=== PATIENT | male | born 1950 | race Caucasian/White ===

== ENCOUNTER 2022-09-04 17:37 | Emergency (ER) | payer OTHER, SELFPAY ==
[2022-09-04] VITALS (40 sets, daily range): BP systolic 74–117; BP diastolic 43–69; PULSE 58–88; TEMP 37.6; O2SAT 96–100; BMI 28.5
--- NOTE | 2022-09-04 17:53 | ED_ITS ---
HPI - General Adult General Time Seen by Provider: 17:53 <Palmira Arriaga MD - Last Filed: 09/04/22 22:39> Date Seen: 09/04/22 <Palmira Arriaga MD - Last Filed: 09/04/22 22:39> Chief complaint: Weakness <Palmira Arriaga MD - Last Filed: 09/04/22 22:39> Stated complaint: Low BP Black Stools <Palmira Arriaga MD - Last Filed: 09/04/22 22:39> Time Seen by Provider: 09/04/22 17:49 <Palmira Arriaga MD - Last Filed: 09/04/22 22:39> Source: patient and RN notes reviewed <Palmira Arriaga MD - Last Filed: 09/04/22 22:39> Mode of arrival: ambulatory <Palmira Arriaga MD - Last Filed: 09/04/22 22:39> Limitations: no limitations <Palmira Arriaga MD - Last Filed: 09/04/22 22:39> History of Present Illness HPI narrative: Patient is a 71-year-old male coming in with low blood pressure and black stools, stating he almost passed out. [facility], states about a month ago he went in and was having some nausea, was given a nausea medicine which works for while. He was told that he has problems with diverticulosis. He states he has had dark tarry stools for maybe about 2 weeks now. Has had no history of peptic ulcer before per report. He states about 3 or 4 days ago he did get put on antibiotics, bigger pill, thinks it is Augmentin for his diverticular issues. When asked if it was diverticulitis that did sound more familiar to him. He is not really having any abdominal pain, no noted fevers. He has been nauseated but the nausea medicine they gave him helps. He notes tonight he was eating, had a drink with dinner and that he thinks tipped him over the edge. He thinks alcohol dropped his blood pressure too much. He has been hospitalized with us before for diverticulitis, last time in 2019. Do not know if he has had an updated colonoscopy in the interim. He states he has post to get an EKG or some cardiac test coming up. He notes that his blood pressure was having problems with being elevated 9 the put him on a whole bunch of medications. Blood pressure seemed to stabilize at about 130, recently it has been low. No chest pain, no abdominal pain, no fevers at this time. <Palmira Arriaga MD - Last Filed: 09/04/22 22:39> Related Data Home medications: Home Medications Medication Instructions Recorded Confirmed HCTZ 12.5/Lisinopril 10 09/04/22 amoxicillin 875 mg-potassium 1 tab PO Q12H 09/04/22 09/04/22 clavulanate 125 mg tablet aspirin 81 mg tablet,delayed 81 mg PO DAILY 09/04/22 09/04/22 release (Adult Aspirin Regimen) atorvastatin 40 mg tablet 40 mg PO DAILY 09/04/22 09/04/22 dicyclomine 10 mg capsule 10 mg PO BID 09/04/22 09/04/22 empagliflozin 25 mg tablet 25 mg PO DAILY 09/04/22 09/04/22 empagliflozin 25 mg tablet 25 mg PO DAILY 09/04/22 09/04/22 furosemide 20 mg tablet 20 mg PO DAILY 09/04/22 09/04/22 isosorbide mononitrate 60 mg 60 mg PO DAILY 09/04/22 09/04/22 tablet,extended release 24 hr spironolactone 25 mg tablet 25 mg PO DAILY 09/04/22 09/04/22 <Palmira Arriaga MD - Last Filed: 09/04/22 22:39> Allergies/adverse reactions: Allergies Allergy/AdvReac Type Severity Reaction Status Date / Time No Known Drug Allergies Allergy Verified 09/04/22 20:39 <Palmira Arriaga MD - Last Filed: 09/04/22 22:39> Review of Systems Status of ROS: Reports: 10 or more systems reviewed and unremarkable except as noted in History and below <Palmira Arriaga MD - Last Filed: 09/04/22 22:39> [facility] Social History: Social History (Updated 09/04/22 @ 22:54 by Liberty Pradhan MD) Smoking Status: Former smoker What tobacco products do you use: cigarettes Smoking quit date/years: >15 years ago Do you use any of these nicotine containing products: None Second hand tobacco smoke exposure: Yes How often do you have a drink containing alcohol: monthly or less How many standard drinks containing alcohol do you have on a typical day: 1 or 2 How often do you have six or more drinks on one occasion: Never AUDIT-C Alcohol total score: 1 Non-prescribed substance use: denies use service: Yes <Palmira Arriaga MD - Last Filed: 09/04/22 22:39> Exam Const: Vital Signs, click to edit/add: Vital Signs - 24 hr 09/04/22 18:01 09/04/22 18:10 09/04/22 18:00 Temperature 99.6 F Pulse Rate Pulse Rate [Pulse Oximeter] 70 71 Blood Pressure Blood Pressure [Ri ght Upper Arm] 93/49 L 93/49 L Pulse Oximetry 97 97 97 Oxygen Delivery Me thod Room Air Room Air 09/04/22 18:28 09/04/22 18:30 09/04/22 18:31 Temperature Pulse Rate 67 67 68 Pulse Rate [Pulse Oximeter] Blood Pressure 83/48 L Blood Pressure [Ri ght Upper Arm] Pulse Oximetry 97 97 96 Oxygen Delivery Me thod 09/04/22 18:45 09/04/22 19:00 09/04/22 19:01 Temperature Pulse Rate 76 69 69 Pulse Rate [Pulse Oximeter] Blood Pressure 97/52 L Blood Pressure [Ri ght Upper Arm] Pulse Oximetry 96 97 96 Oxygen Delivery Me thod 09/04/22 19:03 09/04/22 19:15 09/04/22 19:30 Temperature Pulse Rate 70 67 71 Pulse Rate [Pulse Oximeter] Blood Pressure 97/52 L Blood Pressure [Ri ght Upper Arm] Pulse Oximetry 96 97 97 Oxygen Delivery Me thod 09/04/22 19:34 09/04/22 19:39 09/04/22 19:45 Temperature Pulse Rate 88 71 77 Pulse Rate [Pulse Oximeter] Blood Pressure 74/50 L Blood Pressure [Ri ght Upper Arm] Pulse Oximetry 97 97 98 Oxygen Delivery Me thod 09/04/22 20:00 09/04/22 20:01 09/04/22 20:28 Temperature Pulse Rate 84 87 64 Pulse Rate [Pulse Oximeter] Blood Pressure 87/54 L Blood Pressure [Ri ght Upper Arm] Pulse Oximetry 97 97 99 Oxygen Delivery Me thod 09/04/22 20:30 09/04/22 20:32 09/04/22 20:45 Temperature Pulse Rate 64 62 62 Pulse Rate [Pulse Oximeter] Blood Pressure 105/56 L Blood Pressure [Ri ght Upper Arm] Pulse Oximetry 99 99 97 Oxygen Delivery Me thod 09/04/22 21:00 09/04/22 21:01 09/04/22 21:02 Temperature Pulse Rate 60 67 64 Pulse Rate [Pulse Oximeter] Blood Pressure 98/52 L Blood Pressure [Ri ght Upper Arm] Pulse Oximetry 98 97 98 Oxygen Delivery Me thod 09/04/22 21:15 09/04/22 21:20 09/04/22 21:30 Temperature Pulse Rate 59 L 59 L 62 Pulse Rate [Pulse Oximeter] Blood Pressure 111/69 Blood Pressure [Ri ght Upper Arm] Pulse Oximetry 98 98 99 Oxygen Delivery Me thod 09/04/22 21:32 09/04/22 21:45 09/04/22 22:00 Temperature Pulse Rate 62 60 59 L Pulse Rate [Pulse Oximeter] Blood Pressure 103/43 L Blood Pressure [Ri ght Upper Arm] Pulse Oximetry 98 99 99 Oxygen Delivery Me thod 09/04/22 22:03 09/04/22 22:06 09/04/22 22:15 Temperature Pulse Rate 59 L 59 L 59 L Pulse Rate [Pulse Oximeter] Blood Pressure 83/51 L 114/53 L Blood Pressure [Ri ght Upper Arm] Pulse Oximetry 98 99 98 Oxygen Delivery Wi thod 09/04/22 22:30 09/04/22 22:32 09/04/22 22:45 Temperature Pulse Rate 61 62 61 Pulse Rate [Pulse Oximeter] Blood Pressure Blood Pressure [Ri ght Upper Arm] Pulse Oximetry 98 98 98 Oxygen Delivery Me thod 09/04/22 23:00 09/04/22 23:01 09/04/22 23:15 Temperature Pulse Rate 58 L 60 59 L Pulse Rate [Pulse Oximeter] Blood Pressure 117/65 Blood Pressure [Ri ght Upper Arm] Pulse Oximetry 98 98 97 Oxygen Delivery Me thod 09/04/22 23:35 09/05/22 00:00 09/05/22 00:01 Temperature Pulse Rate 64 60 58 L Pulse Rate [Pulse Oximeter] Blood Pressure 103/55 L Blood Pressure [Ri ght Upper Arm] Pulse Oximetry 100 98 98 Oxygen Delivery Me thod 09/05/22 00:31 09/05/22 01:00 09/05/22 01:01 Temperature Pulse Rate 58 L 54 L 55 L Pulse Rate [Pulse Oximeter] Blood Pressure 103/53 L 76/39 L Blood Pressure [Ri ght Upper Arm] Pulse Oximetry 99 96 96 Oxygen Delivery Me thod 09/05/22 01:31 09/05/22 02:16 09/05/22 03:00 Temperature Pulse Rate 56 L 56 L 53 L Pulse Rate [Pulse Oximeter] Blood Pressure 110/56 L Blood Pressure [Ri ght Upper Arm] Pulse Oximetry 97 99 98 Oxygen Delivery Me thod 09/05/22 03:02 09/05/22 04:01 09/05/22 05:01 Temperature Pulse Rate 53 L Pulse Rate [Pulse Oximeter] Blood Pressure 101/55 L 76/39 L 104/57 L Blood Pressure [Ri ght Upper Arm] Pulse Oximetry 98 Oxygen Delivery Me thod 09/05/22 06:02 09/05/22 06:23 09/05/22 07:00 Temperature Pulse Rate 57 L 53 L Pulse Rate [Pulse Oximeter] Blood Pressure 109/57 L Blood Pressure [Ri ght Upper Arm] Pulse Oximetry 99 98 Oxygen Delivery Me thod 09/05/22 07:01 09/05/22 08:00 09/05/22 08:02 Temperature Pulse Rate 53 L 55 L 57 L Pulse Rate [Pulse Oximeter] Blood Pressure 115/64 121/60 Blood Pressure [Ri ght Upper Arm] Pulse Oximetry 98 98 97 Oxygen Delivery Me thod 09/05/22 09:00 09/05/22 09:02 Temperature Pulse Rate 55 L 55 L Pulse Rate [Pulse Oximeter] Blood Pressure 111/55 L Blood Pressure [Ri ght Upper Arm] Pulse Oximetry 97 97 Oxygen Delivery Me thod <Palmira Arriaga MD - Last Filed: 09/04/22 22:39> Vital Signs, click to edit/add: Vital Signs - 24 hr 09/04/22 18:01 09/04/22 18:10 09/04/22 18:00 Temperature 99.6 F Pulse Rate Pulse Rate [Pulse Oximeter] 70 71 Blood Pressure Blood Pressure [Ri ght Upper Arm] 93/49 L 93/49 L Pulse Oximetry 97 97 97 Oxygen Delivery Me thod Room Air Room Air 09/04/22 18:28 09/04/22 18:30 09/04/22 18:31 Temperature Pulse Rate 67 67 68 Pulse Rate [Pulse Oximeter] Blood Pressure 83/48 L Blood Pressure [Ri ght Upper Arm] Pulse Oximetry 97 97 96 Oxygen Delivery Me thod 09/04/22 18:45 09/04/22 19:00 09/04/22 19:01 Temperature Pulse Rate 76 69 69 Pulse Rate [Pulse Oximeter] Blood Pressure 97/52 L Blood Pressure [Ri ght Upper Arm] Pulse Oximetry 96 97 96 Oxygen Delivery Me thod 09/04/22 19:03 09/04/22 19:15 09/04/22 19:30 Temperature Pulse Rate 70 67 71 Pulse Rate [Pulse Oximeter] Blood Pressure 97/52 L Blood Pressure [Ri ght Upper Arm] Pulse Oximetry 96 97 97 Oxygen Delivery Me thod 09/04/22 19:34 09/04/22 19:39 09/04/22 19:45 Temperature Pulse Rate 88 71 77 Pulse Rate [Pulse Oximeter] Blood Pressure 74/50 L Blood Pressure [Ri ght Upper Arm] Pulse Oximetry 97 97 98 Oxygen Delivery Me thod 09/04/22 20:00 09/04/22 20:01 09/04/22 20:28 Temperature Pulse Rate 84 87 64 Pulse Rate [Pulse Oximeter] Blood Pressure 87/54 L Blood Pressure [Ri ght Upper Arm] Pulse Oximetry 97 97 99 Oxygen Delivery Me thod 09/04/22 20:30 09/04/22 20:32 09/04/22 20:45 Temperature Pulse Rate 64 62 62 Pulse Rate [Pulse Oximeter] Blood Pressure 105/56 L Blood Pressure [Ri ght Upper Arm] Pulse Oximetry 99 99 97 Oxygen Delivery Me thod 09/04/22 21:00 09/04/22 21:01 09/04/22 21:02 Temperature Pulse Rate 60 67 64 Pulse Rate [Pulse Oximeter] Blood Pressure 98/52 L Blood Pressure [Ri ght Upper Arm] Pulse Oximetry 98 97 98 Oxygen Delivery Me thod 09/04/22 21:15 09/04/22 21:20 09/04/22 21:30 Temperature Pulse Rate 59 L 59 L 62 Pulse Rate [Pulse Oximeter] Blood Pressure 111/69 Blood Pressure [Ri ght Upper Arm] Pulse Oximetry 98 98 99 Oxygen Delivery Me thod 09/04/22 21:32 09/04/22 21:45 09/04/22 22:00 Temperature Pulse Rate 62 60 59 L Pulse Rate [Pulse Oximeter] Blood Pressure 103/43 L Blood Pressure [Ri ght Upper Arm] Pulse Oximetry 98 99 99 Oxygen Delivery Me thod 09/04/22 22:03 09/04/22 22:06 09/04/22 22:15 Temperature Pulse Rate 59 L 59 L 59 L Pulse Rate [Pulse Oximeter] Blood Pressure 83/51 L 114/53 L Blood Pressure [Ri ght Upper Arm] Pulse Oximetry 98 99 98 Oxygen Delivery Me thod 09/04/22 22:30 09/04/22 22:32 09/04/22 22:45 Temperature Pulse Rate 61 62 61 Pulse Rate [Pulse Oximeter] Blood Pressure Blood Pressure [Ri ght Upper Arm] Pulse Oximetry 98 98 98 Oxygen Delivery Me thod 09/04/22 23:00 09/04/22 23:01 09/04/22 23:15 Temperature Pulse Rate 58 L 60 59 L Pulse Rate [Pulse Oximeter] Blood Pressure 117/65 Blood Pressure [Ri ght Upper Arm] Pulse Oximetry 98 98 97 Oxygen Delivery Wi thod 09/04/22 23:35 09/05/22 00:00 09/05/22 00:01 Temperature Pulse Rate 64 60 58 L Pulse Rate [Pulse Oximeter] Blood Pressure 103/55 L Blood Pressure [Ri ght Upper Arm] Pulse Oximetry 100 98 98 Oxygen Delivery Me thod 09/05/22 00:31 09/05/22 01:00 09/05/22 01:01 Temperature Pulse Rate 58 L 54 L 55 L Pulse Rate [Pulse Oximeter] Blood Pressure 103/53 L 76/39 L Blood Pressure [Ri ght Upper Arm] Pulse Oximetry 99 96 96 Oxygen Delivery Me thod 09/05/22 01:31 09/05/22 02:16 09/05/22 03:00 Temperature Pulse Rate 56 L 56 L 53 L Pulse Rate [Pulse Oximeter] Blood Pressure 110/56 L Blood Pressure [Ri ght Upper Arm] Pulse Oximetry 97 99 98 Oxygen Delivery Me thod 09/05/22 03:02 09/05/22 04:01 09/05/22 05:01 Temperature Pulse Rate 53 L Pulse Rate [Pulse Oximeter] Blood Pressure 101/55 L 76/39 L 104/57 L Blood Pressure [Ri ght Upper Arm] Pulse Oximetry 98 Oxygen Delivery Me thod 09/05/22 06:02 09/05/22 06:23 09/05/22 07:00 Temperature Pulse Rate 57 L 53 L Pulse Rate [Pulse Oximeter] Blood Pressure 109/57 L Blood Pressure [Ri ght Upper Arm] Pulse Oximetry 99 98 Oxygen Delivery Me thod 09/05/22 07:01 09/05/22 08:00 09/05/22 08:02 Temperature Pulse Rate 53 L 55 L 57 L Pulse Rate [Pulse Oximeter] Blood Pressure 115/64 121/60 Blood Pressure [Ri ght Upper Arm] Pulse Oximetry 98 98 97 Oxygen Delivery Me thod 09/05/22 09:00 09/05/22 09:02 Temperature Pulse Rate 55 L 55 L Pulse Rate [Pulse Oximeter] Blood Pressure 111/55 L Blood Pressure [Ri ght Upper Arm] Pulse Oximetry 97 97 Oxygen Delivery Me thod <Palmira Colindres MD - Last Filed: 09/05/22 09:48> Documenting provider has reviewed patient's vital signs: yes <Palmira Arriaga MD - Last Filed: 09/04/22 22:39> Common normals: no apparent distress, average body habitus, oriented x3, no limitations, healthy appearing, alert and well nourished <Palmira Martinez MD - Last Filed: 09/04/22 22:39> General appearance: cooperative, comfortable, well kempt and well developed <Palmira Arriaga MD - Last Filed: 09/04/22 22:39> HENMT: Common normals: normocephalic, head/scalp atraumatic, hearing grossly normal bilaterally and external ears normal <Palmira Arriaga MD - Last Filed: 09/04/22 22:39> Head and scalp: normocephalic and atraumatic <Palmira Arriaga MD - Last Filed: 09/04/22 22:39> External ear: external ears normal <Palmira Arriaga MD - Last Filed: 09/04/22 22:39> Eye: Common normals: PERRL, EOMs intact bilaterally, conjunctivae normal and no scleral icterus <Palmira Arriaga MD - Last Filed: 09/04/22 22:39> Conjunctiva: conjunctiva(e) normal <Palmira Arriaga MD - Last Filed: 09/04/22 22:39> Pupil: PERRL <Palmira Arriaga MD - Last Filed: 09/04/22 22:39> Neck & C-Spine: Common normals: full ROM, no lymphadenopathy, supple, no meningeal signs, no JVD and thyroid normal <Palmira Arriaga MD - Last Filed: 09/04/22 22:39> Thyroid: thyroid normal <Palmira Arriaga MD - Last Filed: 09/04/22 22:39> Chest: Common normals: inspection of chest normal <Palmira Arriaga MD - Last Filed: 09/04/22 22:39> Resp: Common normals: normal respiratory effort, no retractions, no use of accessory muscles and clear to auscultation bilaterally <Palmira Martinez MD - Last Filed: 09/04/22 22:39> Effort & inspection: able to speak in complete sentences <Palmira Martinez MD - Last Filed: 09/04/22 22:39> Auscultation: clear to auscultation bilaterally <Palmira Arriaga MD - Last Filed: 09/04/22 22:39> Cardio: Common normals: no JVD, regular rate, regular rhythm, S1 normal heart sound, S2 normal heart sound, no gallops, no clicks and no murmurs <Palmira Arriaga MD - Last Filed: 09/04/22 22:39> Rate: regular rate <Palmira Arriaga MD - Last Filed: 09/04/22 22:39> Rhythm: regular rhythm <Palmira Arriaga MD - Last Filed: 09/04/22 22:39> Heart sounds: S1 normal and S2 normal <Palmira Arriaga MD - Last Filed: 09/04/22 22:39> GI: Common normals: Normal to inspection, nondistended, normoactive bowel sounds present, soft to palpation, non-tender, no hepatosplenomegaly and no masses <Palmira Arriaga MD - Last Filed: 09/04/22 22:39> Palpation: soft and no hepatosplenomegaly <Palmira Arriaga MD - Last Filed: 09/04/22 22:39> Extremity: Other: No lower extremity edema <Palmira Arriaga MD - Last Filed: 09/04/22 22:39> Neuro: Common normals: oriented x3 <Palmira Arriaga MD - Last Filed: 09/04/22 22:39> Sensorium/orientation: alert <aPlmira Arriaga MD - Last Filed: 09/04/22 22:39> Meningeal signs: no meningeal signs <Palmira Arriaga MD - Last Filed: 09/04/22 22:39> Psych: Appearance: well kempt <Palmira Arriaga MD - Last Filed: 09/04/22 22:39> Course Course Hospital Course: Will place an IV, have him on pulse oximetry, consider cardiac monitoring if worsening or needed. I will get a baseline EKG on him. He will have a full complement of labs include type and screen. I will initiate a L of normal saline, watch him closely to see if he needs more fluid resuscitation. Hemoglobin should not take that long to come back. I am going to initiate 80 mg IV Protonix in case this is upper GI bleeding. I am going to repeat the CT of his abdomen pelvis as he reports recent diverticulitis, need to ensure that there are not any complications with this. <Palmira Arriaga MD - Last Filed: 09/04/22 22:39> Reevaluation(s) Reevaluation #1: Lactate has been reported to me at 4.4. His hemoglobin is in the 11 range, blood pressure is 90s over 40s, his arrival temperature was 99.6? F. I do wonder if we might actually have sepsis here. Have ordered a 2 L of fluids, will add on blood cultures. Will complete a stool guaiac. <Palmira Martinez MD - Last Filed: 09/04/22 22:39> Time: 18:58 <Palmira Arriaga MD - Last Filed: 09/04/22 22:39> Reevaluation #2: Patient is stool guaiac, no external evidence of any lesions or bleeding. He states he is feeling better with IV fluids but blood pressure is still systolic 97. He does review with me that his blood pressure has been running low for some time now. He believes he had abdominal imaging with a CT up at the [facility], does know that we are planning to repeated here. <Palmira Arriaga MD - Last Filed: 09/04/22 22:39> Time: 19:12 <Palmira Arriaga MD - Last Filed: 09/04/22 22:39> Reevaluation #3: Patient's systolic blood pressure is 105, still on his 2 L of fluids, calculated at his weight he should get 2850 mL for 30 mL/kilos bolus. Have ordered 1/3 L of normal saline. He actually is feeling better. We are waiting his CT readings. He has no difficulty breathing, does not seem like he is going in fluid overload, troponin is normal. Procalcitonin is normal. He indeed has been on Augmentin. He is on cardiac medications that would signify that he may have some congestive heart failure. Urinalysis has been collected per nursing staff, they will make sure it is at lab. <Palmira Arriaga MD - Last Filed: 09/04/22 22:39> Time: 20:54 <Palmira Arriaga MD - Last Filed: 09/04/22 22:39> Additional Reevaluation(s): Patient had told the hospitalists he wanted to go home, did subsequently review this with him. I would prefer he stay, we do not have beds but he will board in the ED until the time we might have and a did mission spot in the hospital or can discharge from here if stable. I have ordered an echo for tomorrow, follow-up labs including a CBC in the morning. I have ordered daily omeprazole. He will need outpatient EGD scheduled sometime in the near future. He will be getting his 3 L of fluid and will continue to observe him. Hospitalist agreed with holding on any antibiotics, does not believe this to be sepsis either. This certainly can be iatrogenic from his medications. In any event, he will be safely monitored and if there is active GI bleeding, development of fever, we can actively pursue treatment for those. <Palmira Arriaga MD - Last Filed: 09/04/22 22:39> Consultations Consultation #1: Called Dr. Pradhan the hospitalist to see if she could do a consult for us. There are no beds at our hospital, will have staff see if there perhaps has been anything that is opened up. There really has been limited if any bed availability at other facilities today. This gentleman has hypotension. I did do a cursory look at his cardiac function, is a bit more difficult exam but I do not believe I see a pericardial effusion, believe his overall cardiac function is reduced somewhat. He is not had any issues with just under the 2 L of fluids he has had it this point. He did further tell me that he went back to his normal lisinopril this morning, half to the dose of Imdur that they had put him on and just took his aspirin. He feels like he is on too many meds. I questioned some of the meds that they had put him on and asked if they thought maybe he had congestive heart failure. He thinks that that is maybe the case. He believes he has a scheduled echocardiogram coming up. I have not given antibiotics at this point as there is nothing showing up on the CT, procalcitonin is normal. [facility] <Palmira Arriaga MD - Last Filed: 09/04/22 22:39> Time: 21:46 <Palmira Arriaga MD - Last Filed: 09/04/22 22:39> Vital Signs Vital signs: Initial Vital Signs Pulse Rate 71 09/04/22 18:00 Respiratory Depth Normal 09/04/22 18:00 Blood Pressure 93/49 L 09/04/22 18:00 Blood Pressure Mean 63 09/04/22 18:00 Blood Pressure Position Supine 09/04/22 18:00 Pulse Oximetry 97 09/04/22 18:00 Oxygen Delivery Method 09/04/22 18:00 Vital Signs Pulse Rate 71 09/04/22 18:00 Blood Pressure 93/49 L 09/04/22 18:00 Pulse Oximetry 97 09/04/22 18:00 Oxygen Delivery Method 09/04/22 18:00 Temperature 99.6 F 09/04/22 18:01 Pulse Rate 55 L 09/05/22 09:02 Blood Pressure 111/55 L 09/05/22 09:02 Pulse Oximetry 97 09/05/22 09:02 Oxygen Delivery Method 09/04/22 18:01 <Palmira Arriaga MD - Last Filed: 09/04/22 22:39> Initial Vital Signs Pulse Rate 71 09/04/22 18:00 Respiratory Depth Normal 09/04/22 18:00 Blood Pressure 93/49 L 09/04/22 18:00 Blood Pressure Mean 63 09/04/22 18:00 Blood Pressure Position Supine 09/04/22 18:00 Pulse Oximetry 97 09/04/22 18:00 Oxygen Delivery Method 09/04/22 18:00 Vital Signs Pulse Rate 71 09/04/22 18:00 Blood Pressure 93/49 L 09/04/22 18:00 Pulse Oximetry 97 09/04/22 18:00 Oxygen Delivery Method 09/04/22 18:00 Temperature 99.6 F 09/04/22 18:01 Pulse Rate 55 L 09/05/22 09:02 Blood Pressure 111/55 L 09/05/22 09:02 Pulse Oximetry 97 09/05/22 09:02 Oxygen Delivery Method 09/04/22 18:01 <Palmira Colindres MD - Last Filed: 09/05/22 09:48> Labs Labs: Laboratory Tests 09/05/22 09/05/22 09/04/22 Range/Units 07:42 07:42 20:42 WBC 9.43 (4.50-11.00) K/uL RBC 3.30 L (4.30-5.90) m/uL Hgb 10.5 L (13.5-17.5) gm/dL Hct 31.5 L (37.0-53.0) % MCV 96 (80-100) fL MCH 32 (26-34) pg MCHC 33 (32-36) gm/dL RDW Coeff of [place] 14.7 (11.5-15.5) % Plt Count 187 (140-440) K/uL Neut % (Auto) 67.2 (42.0-72.0) % Lymph % (Auto) 19.6 L (20-44) % [place] % (Auto) 9.5 (0.0-11.0) % Eos % (Auto) 2.7 (0.0-7.0) % Baso % (Auto) 0.5 (0.0-3.0) % Neut # (Auto) 6.33 (1.7-7.0) K/uL Lymph # (Auto) 1.80 (0.90-2.90) K/uL [place] # (Auto) 0.90 (0.00-0.90) K/UL Eos # (Auto) 0.25 (0.00-0.50) K/uL Baso # (Auto) 0.05 (0.00-0.30) K/uL VBG pH (7.32-7.43) VBG pCO2 (40-50) mmHG VBG pO2 (25-47) mmHG VBG HCO3 (21-28) mmol/L Sodium 136 (135-149) mmol/L Potassium 4.9 (3.6-5.1) mmol/L Chloride 109 (96-114) mmol/L Carbon Dioxide 23 (20-32) mmol/L BUN 25 (7-30) mg/dL Creatinine 0.9 (0.5-1.5) mg/dL Estimated Creat Clear 75.44 Estimated GFR 92 ml/min Glucose 100 (60-115) mg/dL Lactate (0.5-1.9) mmol/L Calcium 8.4 (8.4-10.6) mg/dL Total Bilirubin (0.1-1.5) mg/dL AST (12-35) U/L ALT (4-50) U/L Alkaline Phosphatase (40-150) U/L C-Reactive Protein (0.5-1.0) mg/dL Total Protein (6.0-8.3) g/dL Albumin (3.3-5.0) g/dL Procalcitonin (<0.50) ng/mL Urine Color Yellow (Yellow) Urine Appearance Clear (Clear) Urine pH 5.5 (5.0-8.5) Ur Specific [place] >= 1.030 (1.000-1.030) Urine Protein Negative (Negative) Urine Glucose (UA) 2+ A (Negative) Urine Ketones Negative (Negative) Urine Blood Negative (Negative) Urine Nitrite Negative (Negative) Urine Bilirubin Negative (Negative) Urine Urobilinogen 0.2 (0.2-1.0) Ur Leukocyte Esterase Negative (Negative) Urine RBC 0-2 (0-2) Urine WBC 0-2 (0-5) Ur Squamous Epith Cells Few (None-Few) Urine Bacteria Few A (None) Ethyl Alcohol (0.01-0.03) % SARS-CoV-2 (PCR) (Negative) POC Troponin I (0.01-0.04) ng/ml Blood Type Antibody Screen 09/04/22 09/04/22 09/04/22 Range/Units 20:13 18:02 18:02 WBC (4.50-11.00) K/uL RBC (4.30-5.90) m/uL Hgb (13.5-17.5) gm/dL Hct (37.0-53.0) % MCV (80-100) fL MCH (26-34) pg MCHC (32-36) gm/dL RDW Coeff of [place] (11.5-15.5) % Plt Count (140-440) K/uL Neut % (Auto) (42.0-72.0) % Lymph % (Auto) (20-44) % [place] % (Auto) (0.0-11.0) % Eos % (Auto) (0.0-7.0) % Baso % (Auto) (0.0-3.0) % Neut # (Auto) (1.7-7.0) K/uL Lymph # (Auto) (0.90-2.90) K/uL [place] # (Auto) (0.00-0.90) K/UL Eos # (Auto) (0.00-0.50) K/uL Baso # (Auto) (0.00-0.30) K/uL VBG pH (7.32-7.43) VBG pCO2 (40-50) mmHG VBG pO2 (25-47) mmHG VBG HCO3 (21-28) mmol/L Sodium (135-149) mmol/L Potassium (3.6-5.1) mmol/L Chloride (96-114) mmol/L Carbon Dioxide (20-32) mmol/L BUN (7-30) mg/dL Creatinine (0.5-1.5) mg/dL Estimated Creat Clear Estimated GFR ml/min Glucose (60-115) mg/dL Lactate 2.1 H (0.5-1.9) mmol/L Calcium (8.4-10.6) mg/dL Total Bilirubin (0.1-1.5) mg/dL AST (12-35) U/L ALT (4-50) U/L Alkaline Phosphatase (40-150) U/L C-Reactive Protein (0.5-1.0) mg/dL Total Protein (6.0-8.3) g/dL Albumin (3.3-5.0) g/dL Procalcitonin (<0.50) ng/mL Urine Color (Yellow) Urine Appearance (Clear) Urine pH (5.0-8.5) Ur Specific [place] (1.000-1.030) Urine Protein (Negative) Urine Glucose (UA) (Negative) Urine Ketones (Negative) Urine Blood (Negative) Urine Nitrite (Negative) Urine Bilirubin (Negative) Urine Urobilinogen (0.2-1.0) Ur Leukocyte Esterase (Negative) Urine RBC (0-2) Urine WBC (0-5) Ur Squamous Epith Cells (None-Few) Urine Bacteria (None) Ethyl Alcohol (0.01-0.03) % SARS-CoV-2 (PCR) Negative SARS-CoV-2 (Negative) POC Troponin I 0.00 L (0.01-0.04) ng/ml Blood Type Antibody Screen 09/04/22 09/04/22 09/04/22 Range/Units 18:01 18:01 18:01 WBC 12.94 H (4.50-11.00) K/uL RBC 3.58 L (4.30-5.90) m/uL Hgb 11.5 L (13.5-17.5) gm/dL Hct 33.6 L (37.0-53.0) % MCV 94 (80-100) fL MCH 32 (26-34) pg MCHC 34 (32-36) gm/dL RDW Coeff of [place] 14.5 (11.5-15.5) % Plt Count 224 (140-440) K/uL Neut % (Auto) 72.6 H (42.0-72.0) % Lymph % (Auto) 17.0 L (20-44) % [place] % (Auto) 7.7 (0.0-11.0) % Eos % (Auto) 1.6 (0.0-7.0) % Baso % (Auto) 0.5 (0.0-3.0) % Neut # (Auto) 9.40 H (1.7-7.0) K/uL Lymph # (Auto) 2.20 (0.90-2.90) K/uL [place] # (Auto) 1.00 H (0.00-0.90) K/UL Eos # (Auto) 0.20 (0.00-0.50) K/uL Baso # (Auto) 0.10 (0.00-0.30) K/uL VBG pH 7.394 (7.32-7.43) VBG pCO2 31 L (40-50) mmHG VBG pO2 100.0 H (25-47) mmHG VBG HCO3 19 L (21-28) mmol/L Sodium 135 (135-149) mmol/L Potassium 4.0 (3.6-5.1) mmol/L Chloride 105 (96-114) mmol/L Carbon Dioxide 18 L (20-32) mmol/L BUN 32 H (7-30) mg/dL Creatinine 1.4 (0.5-1.5) mg/dL Estimated Creat Clear 53.89 Estimated GFR 54 ml/min Glucose 108 (60-115) mg/dL Lactate 4.4 H* (0.5-1.9) mmol/L Calcium 9.3 (8.4-10.6) mg/dL Total Bilirubin 0.4 (0.1-1.5) mg/dL AST 22 (12-35) U/L ALT 26 (4-50) U/L Alkaline Phosphatase 78 (40-150) U/L C-Reactive Protein 0.8 (0.5-1.0) mg/dL Total Protein 6.7 (6.0-8.3) g/dL Albumin 4.2 (3.3-5.0) g/dL Procalcitonin 0.08 (<0.50) ng/mL Urine Color (Yellow) Urine Appearance (Clear) Urine pH (5.0-8.5) Ur Specific [place] (1.000-1.030) Urine Protein (Negative) Urine Glucose (UA) (Negative) Urine Ketones (Negative) Urine Blood (Negative) Urine Nitrite (Negative) Urine Bilirubin (Negative) Urine Urobilinogen (0.2-1.0) Ur Leukocyte Esterase (Negative) Urine RBC (0-2) Urine WBC (0-5) Ur Squamous Epith Cells (None-Few) Urine Bacteria (None) Ethyl Alcohol < 0.01 L (0.01-0.03) % SARS-CoV-2 (PCR) (Negative) POC Troponin I (0.01-0.04) ng/ml Blood Type Antibody Screen 09/04/22 Range/Units 18:01 WBC (4.50-11.00) K/uL RBC (4.30-5.90) m/uL Hgb (13.5-17.5) gm/dL Hct (37.0-53.0) % MCV (80-100) fL MCH (26-34) pg MCHC (32-36) gm/dL RDW Coeff of [place] (11.5-15.5) % Plt Count (140-440) K/uL Neut % (Auto) (42.0-72.0) % Lymph % (Auto) (20-44) % [place] % (Auto) (0.0-11.0) % Eos % (Auto) (0.0-7.0) % Baso % (Auto) (0.0-3.0) % Neut # (Auto) (1.7-7.0) K/uL Lymph # (Auto) (0.90-2.90) K/uL [place] # (Auto) (0.00-0.90) K/UL Eos # (Auto) (0.00-0.50) K/uL Baso # (Auto) (0.00-0.30) K/uL VBG pH (7.32-7.43) VBG pCO2 (40-50) mmHG VBG pO2 (25-47) mmHG VBG HCO3 (21-28) mmol/L Sodium (135-149) mmol/L Potassium (3.6-5.1) mmol/L Chloride (96-114) mmol/L Carbon Dioxide (20-32) mmol/L BUN (7-30) mg/dL Creatinine (0.5-1.5) mg/dL Estimated Creat Clear Estimated GFR ml/min Glucose (60-115) mg/dL Lactate (0.5-1.9) mmol/L Calcium (8.4-10.6) mg/dL Total Bilirubin (0.1-1.5) mg/dL AST (12-35) U/L ALT (4-50) U/L Alkaline Phosphatase (40-150) U/L C-Reactive Protein (0.5-1.0) mg/dL Total Protein (6.0-8.3) g/dL Albumin (3.3-5.0) g/dL Procalcitonin (<0.50) ng/mL Urine Color (Yellow) Urine Appearance (Clear) Urine pH (5.0-8.5) Ur Specific [place] (1.000-1.030) Urine Protein (Negative) Urine Glucose (UA) (Negative) Urine Ketones (Negative) Urine Blood (Negative) Urine Nitrite (Negative) Urine Bilirubin (Negative) Urine Urobilinogen (0.2-1.0) Ur Leukocyte Esterase (Negative) Urine RBC (0-2) Urine WBC (0-5) Ur Squamous Epith Cells (None-Few) Urine Bacteria (None) Ethyl Alcohol (0.01-0.03) % SARS-CoV-2 (PCR) (Negative) POC Troponin I (0.01-0.04) ng/ml Blood Type O Negative Antibody Screen NEGATIVE <Palmira Arriaga MD - Last Filed: 09/04/22 22:39> Laboratory Tests 09/05/22 09/05/22 09/04/22 Range/Units 07:42 07:42 20:42 WBC 9.43 (4.50-11.00) K/uL RBC 3.30 L (4.30-5.90) m/uL Hgb 10.5 L (13.5-17.5) gm/dL Hct 31.5 L (37.0-53.0) % MCV 96 (80-100) fL MCH 32 (26-34) pg MCHC 33 (32-36) gm/dL RDW Coeff of [place] 14.7 (11.5-15.5) % Plt Count 187 (140-440) K/uL Neut % (Auto) 67.2 (42.0-72.0) % Lymph % (Auto) 19.6 L (20-44) % [place] % (Auto) 9.5 (0.0-11.0) % Eos % (Auto) 2.7 (0.0-7.0) % Baso % (Auto) 0.5 (0.0-3.0) % Neut # (Auto) 6.33 (1.7-7.0) K/uL Lymph # (Auto) 1.80 (0.90-2.90) K/uL [place] # (Auto) 0.90 (0.00-0.90) K/UL Eos # (Auto) 0.25 (0.00-0.50) K/uL Baso # (Auto) 0.05 (0.00-0.30) K/uL VBG pH (7.32-7.43) VBG pCO2 (40-50) mmHG VBG pO2 (25-47) mmHG VBG HCO3 (21-28) mmol/L Sodium 136 (135-149) mmol/L Potassium 4.9 (3.6-5.1) mmol/L Chloride 109 (96-114) mmol/L Carbon Dioxide 23 (20-32) mmol/L BUN 25 (7-30) mg/dL Creatinine 0.9 (0.5-1.5) mg/dL Estimated Creat Clear 75.44 Estimated GFR 92 ml/min Glucose 100 (60-115) mg/dL Lactate (0.5-1.9) mmol/L Calcium 8.4 (8.4-10.6) mg/dL Total Bilirubin (0.1-1.5) mg/dL AST (12-35) U/L ALT (4-50) U/L Alkaline Phosphatase (40-150) U/L C-Reactive Protein (0.5-1.0) mg/dL Total Protein (6.0-8.3) g/dL Albumin (3.3-5.0) g/dL Procalcitonin (<0.50) ng/mL Urine Color Yellow (Yellow) Urine Appearance Clear (Clear) Urine pH 5.5 (5.0-8.5) Ur Specific [place] >= 1.030 (1.000-1.030) Urine Protein Negative (Negative) Urine Glucose (UA) 2+ A (Negative) Urine Ketones Negative (Negative) Urine Blood Negative (Negative) Urine Nitrite Negative (Negative) Urine Bilirubin Negative (Negative) Urine Urobilinogen 0.2 (0.2-1.0) Ur Leukocyte Esterase Negative (Negative) Urine RBC 0-2 (0-2) Urine WBC 0-2 (0-5) Ur Squamous Epith Cells Few (None-Few) Urine Bacteria Few A (None) Ethyl Alcohol (0.01-0.03) % SARS-CoV-2 (PCR) (Negative) POC Troponin I (0.01-0.04) ng/ml Blood Type Antibody Screen 09/04/22 09/04/22 09/04/22 Range/Units 20:13 18:02 18:02 WBC (4.50-11.00) K/uL RBC (4.30-5.90) m/uL Hgb (13.5-17.5) gm/dL Hct (37.0-53.0) % MCV (80-100) fL MCH (26-34) pg MCHC (32-36) gm/dL RDW Coeff of [place] (11.5-15.5) % Plt Count (140-440) K/uL Neut % (Auto) (42.0-72.0) % Lymph % (Auto) (20-44) % [place] % (Auto) (0.0-11.0) % Eos % (Auto) (0.0-7.0) % Baso % (Auto) (0.0-3.0) % Neut # (Auto) (1.7-7.0) K/uL Lymph # (Auto) (0.90-2.90) K/uL [place] # (Auto) (0.00-0.90) K/UL Eos # (Auto) (0.00-0.50) K/uL Baso # (Auto) (0.00-0.30) K/uL VBG pH (7.32-7.43) VBG pCO2 (40-50) mmHG VBG pO2 (25-47) mmHG VBG HCO3 (21-28) mmol/L Sodium (135-149) mmol/L Potassium (3.6-5.1) mmol/L Chloride (96-114) mmol/L Carbon Dioxide (20-32) mmol/L BUN (7-30) mg/dL Creatinine (0.5-1.5) mg/dL Estimated Creat Clear Estimated GFR ml/min Glucose (60-115) mg/dL Lactate 2.1 H (0.5-1.9) mmol/L Calcium (8.4-10.6) mg/dL Total Bilirubin (0.1-1.5) mg/dL AST (12-35) U/L ALT (4-50) U/L Alkaline Phosphatase (40-150) U/L C-Reactive Protein (0.5-1.0) mg/dL Total Protein (6.0-8.3) g/dL Albumin (3.3-5.0) g/dL Procalcitonin (<0.50) ng/mL Urine Color (Yellow) Urine Appearance (Clear) Urine pH (5.0-8.5) Ur Specific [place] (1.000-1.030) Urine Protein (Negative) Urine Glucose (UA) (Negative) Urine Ketones (Negative) Urine Blood (Negative) Urine Nitrite (Negative) Urine Bilirubin (Negative) Urine Urobilinogen (0.2-1.0) Ur Leukocyte Esterase (Negative) Urine RBC (0-2) Urine WBC (0-5) Ur Squamous Epith Cells (None-Few) Urine Bacteria (None) Ethyl Alcohol (0.01-0.03) % SARS-CoV-2 (PCR) Negative SARS-CoV-2 (Negative) POC Troponin I 0.00 L (0.01-0.04) ng/ml Blood Type Antibody Screen 09/04/22 09/04/22 09/04/22 Range/Units 18:01 18:01 18:01 WBC 12.94 H (4.50-11.00) K/uL RBC 3.58 L (4.30-5.90) m/uL Hgb 11.5 L (13.5-17.5) gm/dL Hct 33.6 L (37.0-53.0) % MCV 94 (80-100) fL MCH 32 (26-34) pg MCHC 34 (32-36) gm/dL RDW Coeff of [place] 14.5 (11.5-15.5) % Plt Count 224 (140-440) K/uL Neut % (Auto) 72.6 H (42.0-72.0) % Lymph % (Auto) 17.0 L (20-44) % [place] % (Auto) 7.7 (0.0-11.0) % Eos % (Auto) 1.6 (0.0-7.0) % Baso % (Auto) 0.5 (0.0-3.0) % Neut # (Auto) 9.40 H (1.7-7.0) K/uL Lymph # (Auto) 2.20 (0.90-2.90) K/uL [place] # (Auto) 1.00 H (0.00-0.90) K/UL Eos # (Auto) 0.20 (0.00-0.50) K/uL Baso # (Auto) 0.10 (0.00-0.30) K/uL VBG pH 7.394 (7.32-7.43) VBG pCO2 31 L (40-50) mmHG VBG pO2 100.0 H (25-47) mmHG VBG HCO3 19 L (21-28) mmol/L Sodium 135 (135-149) mmol/L Potassium 4.0 (3.6-5.1) mmol/L Chloride 105 (96-114) mmol/L Carbon Dioxide 18 L (20-32) mmol/L BUN 32 H (7-30) mg/dL Creatinine 1.4 (0.5-1.5) mg/dL Estimated Creat Clear 53.89 Estimated GFR 54 ml/min Glucose 108 (60-115) mg/dL Lactate 4.4 H* (0.5-1.9) mmol/L Calcium 9.3 (8.4-10.6) mg/dL Total Bilirubin 0.4 (0.1-1.5) mg/dL AST 22 (12-35) U/L ALT 26 (4-50) U/L Alkaline Phosphatase 78 (40-150) U/L C-Reactive Protein 0.8 (0.5-1.0) mg/dL Total Protein 6.7 (6.0-8.3) g/dL Albumin 4.2 (3.3-5.0) g/dL Procalcitonin 0.08 (<0.50) ng/mL Urine Color (Yellow) Urine Appearance (Clear) Urine pH (5.0-8.5) Ur Specific [place] (1.000-1.030) Urine Protein (Negative) Urine Glucose (UA) (Negative) Urine Ketones (Negative) Urine Blood (Negative) Urine Nitrite (Negative) Urine Bilirubin (Negative) Urine Urobilinogen (0.2-1.0) Ur Leukocyte Esterase (Negative) Urine RBC (0-2) Urine WBC (0-5) Ur Squamous Epith Cells (None-Few) Urine Bacteria (None) Ethyl Alcohol < 0.01 L (0.01-0.03) % SARS-CoV-2 (PCR) (Negative) POC Troponin I (0.01-0.04) ng/ml Blood Type Antibody Screen 09/04/22 Range/Units 18:01 WBC (4.50-11.00) K/uL RBC (4.30-5.90) m/uL Hgb (13.5-17.5) gm/dL Hct (37.0-53.0) % MCV (80-100) fL MCH (26-34) pg MCHC (32-36) gm/dL RDW Coeff of [place] (11.5-15.5) % Plt Count (140-440) K/uL Neut % (Auto) (42.0-72.0) % Lymph % (Auto) (20-44) % [place] % (Auto) (0.0-11.0) % Eos % (Auto) (0.0-7.0) % Baso % (Auto) (0.0-3.0) % Neut # (Auto) (1.7-7.0) K/uL Lymph # (Auto) (0.90-2.90) K/uL [place] # (Auto) (0.00-0.90) K/UL Eos # (Auto) (0.00-0.50) K/uL Baso # (Auto) (0.00-0.30) K/uL VBG pH (7.32-7.43) VBG pCO2 (40-50) mmHG VBG pO2 (25-47) mmHG VBG HCO3 (21-28) mmol/L Sodium (135-149) mmol/L Potassium (3.6-5.1) mmol/L Chloride (96-114) mmol/L Carbon Dioxide (20-32) mmol/L BUN (7-30) mg/dL Creatinine (0.5-1.5) mg/dL Estimated Creat Clear Estimated GFR ml/min Glucose (60-115) mg/dL Lactate (0.5-1.9) mmol/L Calcium (8.4-10.6) mg/dL Total Bilirubin (0.1-1.5) mg/dL AST (12-35) U/L ALT (4-50) U/L Alkaline Phosphatase (40-150) U/L C-Reactive Protein (0.5-1.0) mg/dL Total Protein (6.0-8.3) g/dL Albumin (3.3-5.0) g/dL Procalcitonin (<0.50) ng/mL Urine Color (Yellow) Urine Appearance (Clear) Urine pH (5.0-8.5) Ur Specific [place] (1.000-1.030) Urine Protein (Negative) Urine Glucose (UA) (Negative) Urine Ketones (Negative) Urine Blood (Negative) Urine Nitrite (Negative) Urine Bilirubin (Negative) Urine Urobilinogen (0.2-1.0) Ur Leukocyte Esterase (Negative) Urine RBC (0-2) Urine WBC (0-5) Ur Squamous Epith Cells (None-Few) Urine Bacteria (None) Ethyl Alcohol (0.01-0.03) % SARS-CoV-2 (PCR) (Negative) POC Troponin I (0.01-0.04) ng/ml Blood Type O Negative Antibody Screen NEGATIVE <Palmira Colindres MD - Last Filed: 09/05/22 09:48> Medical Decision Making MDM Narrative Medical decision making narrative: Evaluated the patient is morning. His blood pressures have come up into the 1 teens and once 20s systolic. He is feeling significantly better. He has been eating without difficulty and ambulating independently. He does not feel weak, dizzy or lightheaded. His repeat lab work was unremarkable. His hemoglobin did drop 1 point, however this is after he received 3 L of normal saline. I did go over all the patient's medications with him what he has been prescribed and what he has been taking. It appears that he is taking hydrochlorothiazide- lisinopril 12.5-10 mg daily, aspirin 81 mg daily, atorvastatin 40 mg daily, dicyclomine 10 mg p.o. daily p.r.n., Jardiance 20 mg p.o. daily, Lasix 20 mg daily p.r.n.-she has not taken this in quite some time, Imdur 60 mg p.o. daily he took only 30 mg yesterday, spironolactone 12.5 mg daily did not take this yesterday. At this time we will cut his hydrochlorothiazide side lisinopril in half, continue Lasix p.r.n., decrease Imdur to 30 mg daily, resume spironolactone at 12.5 mg p.o. daily. All other medications were today the same. We will establish a primary care provider for him here in [place] as getting to the [place] hospitals very difficult for him. We will also make sure that he has an EGD appointment scheduled or he has the information to get that scheduled. Lastly he does have an echocardiogram scheduled for September 16, according to the patient. At this time patient is stable and will be discharged home with appropriate follow-up scheduled. <Palmira Colindres MD - Last Filed: 09/05/22 09:48> Lab Data Lab results reviewed: Yes I reviewed the patient's lab results <Palmira Arriaga MD - Last Filed: 09/04/22 22:39> Labs: Lab Results 09/04/22 09/04/22 09/04/22 Range/Units 18:01 18:01 18:01 WBC 12.94 H (4.50-11.00) K/uL RBC 3.58 L (4.30-5.90) m/uL Hgb 11.5 L (13.5-17.5) gm/dL Hct 33.6 L (37.0-53.0) % MCV 94 (80-100) fL MCH 32 (26-34) pg MCHC 34 (32-36) gm/dL RDW Coeff of [place] 14.5 (11.5-15.5) % Plt Count 224 (140-440) K/uL Neut % (Auto) 72.6 H (42.0-72.0) % Lymph % (Auto) 17.0 L (20-44) % [place] % (Auto) 7.7 (0.0-11.0) % Eos % (Auto) 1.6 (0.0-7.0) % Baso % (Auto) 0.5 (0.0-3.0) % Neut # (Auto) 9.40 H (1.7-7.0) K/uL Lymph # (Auto) 2.20 (0.90-2.90) K/uL [place] # (Auto) 1.00 H (0.00-0.90) K/UL Eos # (Auto) 0.20 (0.00-0.50) K/uL Baso # (Auto) 0.10 (0.00-0.30) K/uL VBG pH (7.32-7.43) VBG pCO2 (40-50) mmHG VBG pO2 (25-47) mmHG VBG HCO3 (21-28) mmol/L Sodium 135 (135-149) mmol/L Potassium 4.0 (3.6-5.1) mmol/L Chloride 105 (96-114) mmol/L Carbon Dioxide 18 L (20-32) mmol/L BUN 32 H (7-30) mg/dL Creatinine 1.4 (0.5-1.5) mg/dL Estimated Creat Clear 53.89 Estimated GFR 54 ml/min Glucose 108 (60-115) mg/dL Lactate (0.5-1.9) mmol/L Calcium 9.3 (8.4-10.6) mg/dL Total Bilirubin 0.4 (0.1-1.5) mg/dL AST 22 (12-35) U/L ALT 26 (4-50) U/L Alkaline Phosphatase 78 (40-150) U/L C-Reactive Protein 0.8 (0.5-1.0) mg/dL Total Protein 6.7 (6.0-8.3) g/dL Albumin 4.2 (3.3-5.0) g/dL Procalcitonin 0.08 (<0.50) ng/mL Urine Color (Yellow) Urine Appearance (Clear) Urine pH (5.0-8.5) Ur Specific [place] (1.000-1.030) Urine Protein (Negative) Urine Glucose (UA) (Negative) Urine Ketones (Negative) Urine Blood (Negative) Urine Nitrite (Negative) Urine Bilirubin (Negative) Urine Urobilinogen (0.2-1.0) Ur Leukocyte Esterase (Negative) Urine RBC (0-2) Urine WBC (0-5) Ur Squamous Epith Cells (None-Few) Urine Bacteria (None) Ethyl Alcohol < 0.01 L (0.01-0.03) % SARS-CoV-2 (PCR) (Negative) POC Troponin I (0.01-0.04) ng/ml Blood Type O Negative Antibody Screen NEGATIVE 09/04/22 09/04/22 09/04/22 Range/Units 18:01 18:02 18:02 WBC (4.50-11.00) K/uL RBC (4.30-5.90) m/uL Hgb (13.5-17.5) gm/dL Hct (37.0-53.0) % MCV (80-100) fL MCH (26-34) pg MCHC (32-36) gm/dL RDW Coeff of [place] (11.5-15.5) % Plt Count (140-440) K/uL Neut % (Auto) (42.0-72.0) % Lymph % (Auto) (20-44) % [place] % (Auto) (0.0-11.0) % Eos % (Auto) (0.0-7.0) % Baso % (Auto) (0.0-3.0) % Neut # (Auto) (1.7-7.0) K/uL Lymph # (Auto) (0.90-2.90) K/uL [place] # (Auto) (0.00-0.90) K/UL Eos # (Auto) (0.00-0.50) K/uL Baso # (Auto) (0.00-0.30) K/uL VBG pH 7.394 (7.32-7.43) VBG pCO2 31 L (40-50) mmHG VBG pO2 100.0 H (25-47) mmHG VBG HCO3 19 L (21-28) mmol/L Sodium (135-149) mmol/L Potassium (3.6-5.1) mmol/L Chloride (96-114) mmol/L Carbon Dioxide (20-32) mmol/L BUN (7-30) mg/dL Creatinine (0.5-1.5) mg/dL Estimated Creat Clear Estimated GFR ml/min Glucose (60-115) mg/dL Lactate 4.4 H* (0.5-1.9) mmol/L Calcium (8.4-10.6) mg/dL Total Bilirubin (0.1-1.5) mg/dL AST (12-35) U/L ALT (4-50) U/L Alkaline Phosphatase (40-150) U/L C-Reactive Protein (0.5-1.0) mg/dL Total Protein (6.0-8.3) g/dL Albumin (3.3-5.0) g/dL Procalcitonin (<0.50) ng/mL Urine Color (Yellow) Urine Appearance (Clear) Urine pH (5.0-8.5) Ur Specific [place] (1.000-1.030) Urine Protein (Negative) Urine Glucose (UA) (Negative) Urine Ketones (Negative) Urine Blood (Negative) Urine Nitrite (Negative) Urine Bilirubin (Negative) Urine Urobilinogen (0.2-1.0) Ur Leukocyte Esterase (Negative) Urine RBC (0-2) Urine WBC (0-5) Ur Squamous Epith Cells (None-Few) Urine Bacteria (None) Ethyl Alcohol (0.01-0.03) % SARS-CoV-2 (PCR) Negative SARS-CoV-2 (Negative) POC Troponin I 0.00 L (0.01-0.04) ng/ml Blood Type Antibody Screen 09/04/22 09/04/22 09/05/22 Range/Units 20:13 20:42 07:42 WBC 9.43 (4.50-11.00) K/uL RBC 3.30 L (4.30-5.90) m/uL Hgb 10.5 L (13.5-17.5) gm/dL Hct 31.5 L (37.0-53.0) % MCV 96 (80-100) fL MCH 32 (26-34) pg MCHC 33 (32-36) gm/dL RDW Coeff of [place] 14.7 (11.5-15.5) % Plt Count 187 (140-440) K/uL Neut % (Auto) 67.2 (42.0-72.0) % Lymph % (Auto) 19.6 L (20-44) % [place] % (Auto) 9.5 (0.0-11.0) % Eos % (Auto) 2.7 (0.0-7.0) % Baso % (Auto) 0.5 (0.0-3.0) % Neut # (Auto) 6.33 (1.7-7.0) K/uL Lymph # (Auto) 1.80 (0.90-2.90) K/uL [place] # (Auto) 0.90 (0.00-0.90) K/UL Eos # (Auto) 0.25 (0.00-0.50) K/uL Baso # (Auto) 0.05 (0.00-0.30) K/uL VBG pH (7.32-7.43) VBG pCO2 (40-50) mmHG VBG pO2 (25-47) mmHG VBG HCO3 (21-28) mmol/L Sodium (135-149) mmol/L Potassium (3.6-5.1) mmol/L Chloride (96-114) mmol/L Carbon Dioxide (20-32) mmol/L BUN (7-30) mg/dL Creatinine (0.5-1.5) mg/dL Estimated Creat Clear Estimated GFR ml/min Glucose (60-115) mg/dL Lactate 2.1 H (0.5-1.9) mmol/L Calcium (8.4-10.6) mg/dL Total Bilirubin (0.1-1.5) mg/dL AST (12-35) U/L ALT (4-50) U/L Alkaline Phosphatase (40-150) U/L C-Reactive Protein (0.5-1.0) mg/dL Total Protein (6.0-8.3) g/dL Albumin (3.3-5.0) g/dL Procalcitonin (<0.50) ng/mL Urine Color Yellow (Yellow) Urine Appearance Clear (Clear) Urine pH 5.5 (5.0-8.5) Ur Specific [place] >= 1.030 (1.000-1.030) Urine Protein Negative (Negative) Urine Glucose (UA) 2+ A (Negative) Urine Ketones Negative (Negative) Urine Blood Negative (Negative) Urine Nitrite Negative (Negative) Urine Bilirubin Negative (Negative) Urine Urobilinogen 0.2 (0.2-1.0) Ur Leukocyte Esterase Negative (Negative) Urine RBC 0-2 (0-2) Urine WBC 0-2 (0-5) Ur Squamous Epith Cells Few (None-Few) Urine Bacteria Few A (None) Ethyl Alcohol (0.01-0.03) % SARS-CoV-2 (PCR) (Negative) POC Troponin I (0.01-0.04) ng/ml Blood Type Antibody Screen 09/05/22 Range/Units 07:42 WBC (4.50-11.00) K/uL RBC (4.30-5.90) m/uL Hgb (13.5-17.5) gm/dL Hct (37.0-53.0) % MCV (80-100) fL MCH (26-34) pg MCHC (32-36) gm/dL RDW Coeff of [place] (11.5-15.5) % Plt Count (140-440) K/uL Neut % (Auto) (42.0-72.0) % Lymph % (Auto) (20-44) % [place] % (Auto) (0.0-11.0) % Eos % (Auto) (0.0-7.0) % Baso % (Auto) (0.0-3.0) % Neut # (Auto) (1.7-7.0) K/uL Lymph # (Auto) (0.90-2.90) K/uL [place] # (Auto) (0.00-0.90) K/UL Eos # (Auto) (0.00-0.50) K/uL Baso # (Auto) (0.00-0.30) K/uL VBG pH (7.32-7.43) VBG pCO2 (40-50) mmHG VBG pO2 (25-47) mmHG VBG HCO3 (21-28) mmol/L Sodium 136 (135-149) mmol/L Potassium 4.9 (3.6-5.1) mmol/L Chloride 109 (96-114) mmol/L Carbon Dioxide 23 (20-32) mmol/L BUN 25 (7-30) mg/dL Creatinine 0.9 (0.5-1.5) mg/dL Estimated Creat Clear 75.44 Estimated GFR 92 ml/min Glucose 100 (60-115) mg/dL Lactate (0.5-1.9) mmol/L Calcium 8.4 (8.4-10.6) mg/dL Total Bilirubin (0.1-1.5) mg/dL AST (12-35) U/L ALT (4-50) U/L Alkaline Phosphatase (40-150) U/L C-Reactive Protein (0.5-1.0) mg/dL Total Protein (6.0-8.3) g/dL Albumin (3.3-5.0) g/dL Procalcitonin (<0.50) ng/mL Urine Color (Yellow) Urine Appearance (Clear) Urine pH (5.0-8.5) Ur Specific [place] (1.000-1.030) Urine Protein (Negative) Urine Glucose (UA) (Negative) Urine Ketones (Negative) Urine Blood (Negative) Urine Nitrite (Negative) Urine Bilirubin (Negative) Urine Urobilinogen (0.2-1.0) Ur Leukocyte Esterase (Negative) Urine RBC (0-2) Urine WBC (0-5) Ur Squamous Epith Cells (None-Few) Urine Bacteria (None) Ethyl Alcohol (0.01-0.03) % SARS-CoV-2 (PCR) (Negative) POC Troponin I (0.01-0.04) ng/ml Blood Type Antibody Screen <Palmira Arriaga MD - Last Filed: 09/04/22 22:39> Lab Results 09/04/22 09/04/22 09/04/22 Range/Units 18:01 18:01 18:01 WBC 12.94 H (4.50-11.00) K/uL RBC 3.58 L (4.30-5.90) m/uL Hgb 11.5 L (13.5-17.5) gm/dL Hct 33.6 L (37.0-53.0) % MCV 94 (80-100) fL MCH 32 (26-34) pg MCHC 34 (32-36) gm/dL RDW Coeff of [place] 14.5 (11.5-15.5) % Plt Count 224 (140-440) K/uL Neut % (Auto) 72.6 H (42.0-72.0) % Lymph % (Auto) 17.0 L (20-44) % [place] % (Auto) 7.7 (0.0-11.0) % Eos % (Auto) 1.6 (0.0-7.0) % Baso % (Auto) 0.5 (0.0-3.0) % Neut # (Auto) 9.40 H (1.7-7.0) K/uL Lymph # (Auto) 2.20 (0.90-2.90) K/uL [place] # (Auto) 1.00 H (0.00-0.90) K/UL Eos # (Auto) 0.20 (0.00-0.50) K/uL Baso # (Auto) 0.10 (0.00-0.30) K/uL VBG pH (7.32-7.43) VBG pCO2 (40-50) mmHG VBG pO2 (25-47) mmHG VBG HCO3 (21-28) mmol/L Sodium 135 (135-149) mmol/L Potassium 4.0 (3.6-5.1) mmol/L Chloride 105 (96-114) mmol/L Carbon Dioxide 18 L (20-32) mmol/L BUN 32 H (7-30) mg/dL Creatinine 1.4 (0.5-1.5) mg/dL Estimated Creat Clear 53.89 Estimated GFR 54 ml/min Glucose 108 (60-115) mg/dL Lactate (0.5-1.9) mmol/L Calcium 9.3 (8.4-10.6) mg/dL Total Bilirubin 0.4 (0.1-1.5) mg/dL AST 22 (12-35) U/L ALT 26 (4-50) U/L Alkaline Phosphatase 78 (40-150) U/L C-Reactive Protein 0.8 (0.5-1.0) mg/dL Total Protein 6.7 (6.0-8.3) g/dL Albumin 4.2 (3.3-5.0) g/dL Procalcitonin 0.08 (<0.50) ng/mL Urine Color (Yellow) Urine Appearance (Clear) Urine pH (5.0-8.5) Ur Specific [place] (1.000-1.030) Urine Protein (Negative) Urine Glucose (UA) (Negative) Urine Ketones (Negative) Urine Blood (Negative) Urine Nitrite (Negative) Urine Bilirubin (Negative) Urine Urobilinogen (0.2-1.0) Ur Leukocyte Esterase (Negative) Urine RBC (0-2) Urine WBC (0-5) Ur Squamous Epith Cells (None-Few) Urine Bacteria (None) Ethyl Alcohol < 0.01 L (0.01-0.03) % SARS-CoV-2 (PCR) (Negative) POC Troponin I (0.01-0.04) ng/ml Blood Type O Negative Antibody Screen NEGATIVE 09/04/22 09/04/22 09/04/22 Range/Units 18:01 18:02 18:02 WBC (4.50-11.00) K/uL RBC (4.30-5.90) m/uL Hgb (13.5-17.5) gm/dL Hct (37.0-53.0) % MCV (80-100) fL MCH (26-34) pg MCHC (32-36) gm/dL RDW Coeff of [place] (11.5-15.5) % Plt Count (140-440) K/uL Neut % (Auto) (42.0-72.0) % Lymph % (Auto) (20-44) % [place] % (Auto) (0.0-11.0) % Eos % (Auto) (0.0-7.0) % Baso % (Auto) (0.0-3.0) % Neut # (Auto) (1.7-7.0) K/uL Lymph # (Auto) (0.90-2.90) K/uL [place] # (Auto) (0.00-0.90) K/UL Eos # (Auto) (0.00-0.50) K/uL Baso # (Auto) (0.00-0.30) K/uL VBG pH 7.394 (7.32-7.43) VBG pCO2 31 L (40-50) mmHG VBG pO2 100.0 H (25-47) mmHG VBG HCO3 19 L (21-28) mmol/L Sodium (135-149) mmol/L Potassium (3.6-5.1) mmol/L Chloride (96-114) mmol/L Carbon Dioxide (20-32) mmol/L BUN (7-30) mg/dL Creatinine (0.5-1.5) mg/dL Estimated Creat Clear Estimated GFR ml/min Glucose (60-115) mg/dL Lactate 4.4 H* (0.5-1.9) mmol/L Calcium (8.4-10.6) mg/dL Total Bilirubin (0.1-1.5) mg/dL AST (12-35) U/L ALT (4-50) U/L Alkaline Phosphatase (40-150) U/L C-Reactive Protein (0.5-1.0) mg/dL Total Protein (6.0-8.3) g/dL Albumin (3.3-5.0) g/dL Procalcitonin (<0.50) ng/mL Urine Color (Yellow) Urine Appearance (Clear) Urine pH (5.0-8.5) Ur Specific [place] (1.000-1.030) Urine Protein (Negative) Urine Glucose (UA) (Negative) Urine Ketones (Negative) Urine Blood (Negative) Urine Nitrite (Negative) Urine Bilirubin (Negative) Urine Urobilinogen (0.2-1.0) Ur Leukocyte Esterase (Negative) Urine RBC (0-2) Urine WBC (0-5) Ur Squamous Epith Cells (None-Few) Urine Bacteria (None) Ethyl Alcohol (0.01-0.03) % SARS-CoV-2 (PCR) Negative SARS-CoV-2 (Negative) POC Troponin I 0.00 L (0.01-0.04) ng/ml Blood Type Antibody Screen 09/04/22 09/04/22 09/05/22 Range/Units 20:13 20:42 07:42 WBC 9.43 (4.50-11.00) K/uL RBC 3.30 L (4.30-5.90) m/uL Hgb 10.5 L (13.5-17.5) gm/dL Hct 31.5 L (37.0-53.0) % MCV 96 (80-100) fL MCH 32 (26-34) pg MCHC 33 (32-36) gm/dL RDW Coeff of [place] 14.7 (11.5-15.5) % Plt Count 187 (140-440) K/uL Neut % (Auto) 67.2 (42.0-72.0) % Lymph % (Auto) 19.6 L (20-44) % [place] % (Auto) 9.5 (0.0-11.0) % Eos % (Auto) 2.7 (0.0-7.0) % Baso % (Auto) 0.5 (0.0-3.0) % Neut # (Auto) 6.33 (1.7-7.0) K/uL Lymph # (Auto) 1.80 (0.90-2.90) K/uL [place] # (Auto) 0.90 (0.00-0.90) K/UL Eos # (Auto) 0.25 (0.00-0.50) K/uL Baso # (Auto) 0.05 (0.00-0.30) K/uL VBG pH (7.32-7.43) VBG pCO2 (40-50) mmHG VBG pO2 (25-47) mmHG VBG HCO3 (21-28) mmol/L Sodium (135-149) mmol/L Potassium (3.6-5.1) mmol/L Chloride (96-114) mmol/L Carbon Dioxide (20-32) mmol/L BUN (7-30) mg/dL Creatinine (0.5-1.5) mg/dL Estimated Creat Clear Estimated GFR ml/min Glucose (60-115) mg/dL Lactate 2.1 H (0.5-1.9) mmol/L Calcium (8.4-10.6) mg/dL Total Bilirubin (0.1-1.5) mg/dL AST (12-35) U/L ALT (4-50) U/L Alkaline Phosphatase (40-150) U/L C-Reactive Protein (0.5-1.0) mg/dL Total Protein (6.0-8.3) g/dL Albumin (3.3-5.0) g/dL Procalcitonin (<0.50) ng/mL Urine Color Yellow (Yellow) Urine Appearance Clear (Clear) Urine pH 5.5 (5.0-8.5) Ur Specific [place] >= 1.030 (1.000-1.030) Urine Protein Negative (Negative) Urine Glucose (UA) 2+ A (Negative) Urine Ketones Negative (Negative) Urine Blood Negative (Negative) Urine Nitrite Negative (Negative) Urine Bilirubin Negative (Negative) Urine Urobilinogen 0.2 (0.2-1.0) Ur Leukocyte Esterase Negative (Negative) Urine RBC 0-2 (0-2) Urine WBC 0-2 (0-5) Ur Squamous Epith Cells Few (None-Few) Urine Bacteria Few A (None) Ethyl Alcohol (0.01-0.03) % SARS-CoV-2 (PCR) (Negative) POC Troponin I (0.01-0.04) ng/ml Blood Type Antibody Screen 09/05/22 Range/Units 07:42 WBC (4.50-11.00) K/uL RBC (4.30-5.90) m/uL Hgb (13.5-17.5) gm/dL Hct (37.0-53.0) % MCV (80-100) fL MCH (26-34) pg MCHC (32-36) gm/dL RDW Coeff of [place] (11.5-15.5) % Plt Count (140-440) K/uL Neut % (Auto) (42.0-72.0) % Lymph % (Auto) (20-44) % [place] % (Auto) (0.0-11.0) % Eos % (Auto) (0.0-7.0) % Baso % (Auto) (0.0-3.0) % Neut # (Auto) (1.7-7.0) K/uL Lymph # (Auto) (0.90-2.90) K/uL [place] # (Auto) (0.00-0.90) K/UL Eos # (Auto) (0.00-0.50) K/uL Baso # (Auto) (0.00-0.30) K/uL VBG pH (7.32-7.43) VBG pCO2 (40-50) mmHG VBG pO2 (25-47) mmHG VBG HCO3 (21-28) mmol/L Sodium 136 (135-149) mmol/L Potassium 4.9 (3.6-5.1) mmol/L Chloride 109 (96-114) mmol/L Carbon Dioxide 23 (20-32) mmol/L BUN 25 (7-30) mg/dL Creatinine 0.9 (0.5-1.5) mg/dL Estimated Creat Clear 75.44 Estimated GFR 92 ml/min Glucose 100 (60-115) mg/dL Lactate (0.5-1.9) mmol/L Calcium 8.4 (8.4-10.6) mg/dL Total Bilirubin (0.1-1.5) mg/dL AST (12-35) U/L ALT (4-50) U/L Alkaline Phosphatase (40-150) U/L C-Reactive Protein (0.5-1.0) mg/dL Total Protein (6.0-8.3) g/dL Albumin (3.3-5.0) g/dL Procalcitonin (<0.50) ng/mL Urine Color (Yellow) Urine Appearance (Clear) Urine pH (5.0-8.5) Ur Specific [place] (1.000-1.030) Urine Protein (Negative) Urine Glucose (UA) (Negative) Urine Ketones (Negative) Urine Blood (Negative) Urine Nitrite (Negative) Urine Bilirubin (Negative) Urine Urobilinogen (0.2-1.0) Ur Leukocyte Esterase (Negative) Urine RBC (0-2) Urine WBC (0-5) Ur Squamous Epith Cells (None-Few) Urine Bacteria (None) Ethyl Alcohol (0.01-0.03) % SARS-CoV-2 (PCR) (Negative) POC Troponin I (0.01-0.04) ng/ml Blood Type Antibody Screen <Palmira Colindres MD - Last Filed: 09/05/22 09:48> Imaging Data CT Chest/Ab/Pelvis: Attestation: I have reviewed the pertinent imaging results. 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 Site :?[id number] Study:?CT Chest/Abd/Pelvis -09/04/2022 8:38:22 PM Ordering Physician:?Suchomel-Martinez Palmira Final Report: INDICATION: Low blood pressure, black stools, melena TECHNIQUE: CT chest, abdomen and pelvis acquired with IV contrast. COMPARISON: CT abdomen 04/22/2020 FINDINGS: CHEST: Cardiovascular structures: Heart size is normal. Thoracic aorta and main pulmonary artery are normal in caliber. Coronary artery and thoracic aorta atherosclerotic calcification. Mediastinum and maverick: No mass or adenopathy. Lungs and pleura: The lungs are clear. No pleural effusion or pneumothorax. No suspicious nodule. Chest wall and axilla: No mass or adenopathy. Bones: No suspicious bone lesions. Unremarkable for age. ABDOMEN AND PELVIS: Liver: No suspicious mass. Simple cyst left hepatic lobe. Normal size and attenuation. Gallbladder and bile ducts: Unremarkable. Pancreas: Unchanged 1.2 cm hypodense lesion in the pancreatic tail. Spleen: Unchanged 1.6 cm left adrenal nodule. Normal right adrenal gland. Adrenal glands: Unremarkable. Kidneys: Unchanged moderate-sized region of right renal cortical atrophy, likely sequela of remote insult. Punctate nonobstructing stone right kidney inferior pole. Normal left kidney. No hydronephrosis bilaterally. The ureters are normal. GI tract: Diverticulosis without pericolonic inflammation. Normal caliber. No obstruction. Normal appendix. Vascular structures: Normal caliber abdominal aorta with moderate atherosclerotic calcification. Lymph nodes: Unremarkable. Miscellaneous: Unremarkable. No free air or significant free fluid. Pelvic Organs: Unremarkable. Bones: No suspicious bone lesions. Unremarkable for age. IMPRESSION: No acute findings within the chest, abdomen, and pelvis. No findings to explain the patient`s symptoms. Multiple unchanged ancillary findings, as above. Please note that all CT scans at this facility use dose modulation, iterative reconstruction, and/or weight-based dosing when appropriate to reduce radiation dose to as low as reasonably achievable. Dictated by Arthur Navas MD @ 09/04/2022 8:57:04 PM (Electronic Signature) <Palmira Arriaga MD - Last Filed: 09/04/22 22:39> ECG Data Attestation: I personally reviewed and interpreted this ECG as follows: (I believe there to be an underlying sinus rhythm, do see alternate P-waves with similar QRS complexes that are different. Rate is 70 overall. Does have bifascicular block. No acute ischemic change.) <Palmira Arriaga MD - Last Filed: 09/04/22 22:39> Prior ECG tracings: not available for review <Palmira Arriaga MD - Last Filed: 09/04/22 22:39> Discharge Plan Discharge Clinical Impression: Acute hypotension, Melanotic stools <Palmira Arriaga MD - Last Filed: 09/04/22 22:39> Patient Disposition: Home, Self-Care <Palmira Arriaga MD - Last Filed: 09/04/22 22:39> Condition: Improved <Palmira Arriaga MD - Last Filed: 09/04/22 22:39> Additional Instructions: At this time you should cut hydrochlorothiazide/lisinopril in half, continue Lasix as needed for leg swelling, decrease Imdur to 30 mg daily (so cut this pill in half), resume spironolactone at 12.5 mg (half tablet) daily. All other medications will remain the same. We will get you the information he needs to that you can set up a primary care provider here [place], and have a upper endoscopy scheduled. If you develop bright red blood per rectum, you should return to the emergency department. <Palmira Arriaga MD - Last Filed: 09/04/22 22:39> Prescriptions: No Action aspirin [Adult Aspirin Regimen] 81 mg tablet,delayed release (DR/EC) 81 mg PO DAILY spironolactone 25 mg tablet 25 mg PO DAILY empagliflozin 25 mg tablet 25 mg PO DAILY furosemide 20 mg tablet 20 mg PO DAILY isosorbide mononitrate 60 mg tablet extended release 24 hr 60 mg PO DAILY atorvastatin 40 mg tablet 40 mg PO DAILY amoxicillin-pot clavulanate 875-125 mg tablet 1 tab PO Q12H empagliflozin 25 mg tablet 25 mg PO DAILY dicyclomine 10 mg capsule 10 mg PO BID HCTZ 12.5/Lisinopril 10 <Palmira Arriaga MD - Last Filed: 09/04/22 22:39> Follow Up/Referrals: Steven Sheth MD [Primary Care Provider] - <Palmira Arriaga MD - Last Filed: 09/04/22 22:39> Stand Alone Forms: MyHealth Info Instructions <Palmira Arriaga MD - Last Filed: 09/04/22 22:39>
--- NOTE | 2022-09-04 18:01 | CRLHL7_ITS ---
For Patients: As a result of the Century Cures Act, medical imaging exams and procedure reports are released immediately into your electronic medical record. You may view this report before your referring provider. If you have questions, please contact your health care provider. INDICATION: Low blood pressure, black stools, melena TECHNIQUE: CT chest, abdomen and pelvis acquired with IV contrast. COMPARISON: CT abdomen 04/22/2020 FINDINGS: CHEST: Cardiovascular structures: Heart size is normal. Thoracic aorta and main pulmonary artery are normal in caliber. Coronary artery and thoracic aorta atherosclerotic calcification. Mediastinum and maverick: No mass or adenopathy. Lungs and pleura: The lungs are clear. No pleural effusion or pneumothorax. No suspicious nodule. Chest wall and axilla: No mass or adenopathy. Bones: No suspicious bone lesions. Unremarkable for age. ABDOMEN AND PELVIS: Liver: No suspicious mass. Simple cyst left hepatic lobe. Normal size and attenuation. Gallbladder and bile ducts: Unremarkable. Pancreas: Unchanged 1.2 cm hypodense lesion in the pancreatic tail. Spleen: Unchanged 1.6 cm left adrenal nodule. Normal right adrenal gland. Adrenal glands: Unremarkable. Kidneys: Unchanged moderate-sized region of right renal cortical atrophy, likely sequela of remote insult. Punctate nonobstructing stone right kidney inferior pole. Normal left kidney. No hydronephrosis bilaterally. The ureters are normal. GI tract: Diverticulosis without pericolonic inflammation. Normal caliber. No obstruction. Normal appendix. Vascular structures: Normal caliber abdominal aorta with moderate atherosclerotic calcification. Lymph nodes: Unremarkable. Miscellaneous: Unremarkable. No free air or significant free fluid. Pelvic Organs: Unremarkable. Bones: No suspicious bone lesions. Unremarkable for age. IMPRESSION: No acute findings within the chest, abdomen, and pelvis. No findings to explain the patient`s symptoms. Multiple unchanged ancillary findings, as above. Please note that all CT scans at this facility use dose modulation, iterative reconstruction, and/or weight-based dosing when appropriate to reduce radiation dose to as low as reasonably achievable. Dictated by Arthur Navas MD @ 09/04/2022 8:57:04 PM (Electronically Signed)
[2022-09-04] MEDS: 0.9 % SODIUM CHLORIDE 1000 ml 1,000 ML 500 ML IV (18:41)
[2022-09-04 18:43] LABS: HCO3 VBG 19 mmol/L (21-28); PCO2 VBG 31 mmHG (40-50); pH VBG 7.394 (7.32-7.43)
[2022-09-04 18:47] LABS: Basophils Percent Auto 0.5 % (0.0-3.0); Eosinophils Percent Auto 1.6 % (0.0-7.0); Hematocrit 33.6 % (37.0-53.0); Hemoglobin* 11.5 gm/dL (13.5-17.5); Immature Granulocytes Pct Auto 0.6 %; Mean Corpuscular HGB Conc 34 gm/dL (32-36); Mean Corpuscular Hemoglobin 32 pg (26-34); Mean Corpuscular Volume 94 fL (80-100); Monocytes Percent Auto 7.7 % (0.0-11.0); Neutrophils Percent Auto 72.6 % (42.0-72.0); Platelet Count* 224 K/uL (140-440); RDW Coefficient of Variation % 14.5 % (11.5-15.5); Red Blood Count 3.58 m/uL (4.30-5.90); White Blood Count* 12.94 K/uL (4.50-11.00)
[2022-09-04] MEDS: PANTOPRAZOLE SODIUM 40 MG INJ 80 MG IVP (18:50)
[2022-09-04 18:51] LABS: Lactate* 4.4 mmol/L (0.5-1.9)
[2022-09-04 19:02] LABS: Albumin* 4.2 g/dL (3.3-5.0); Chloride* 105 mmol/L (96-114)
[2022-09-04 19:03] LABS: Sodium* 135 mmol/L (135-149)
[2022-09-04 19:05] LABS: Bilirubin Total* 0.4 mg/dL (0.1-1.5); Creatinine* 1.4 mg/dL (0.5-1.5); Est. Creatinine Clearance* 53.89; Estimated Glomerular Filt Rate 54 ml/min
[2022-09-04 19:06] LABS: Alanine Aminotransferase* 26 U/L (4-50); Alkaline Phosphatase* 78 U/L (40-150); Aspartate Amino Transferase* 22 U/L (12-35); Blood Urea Nitrogen* 32 mg/dL (7-30); Calcium* 9.3 mg/dL (8.4-10.6); Carbon Dioxide* 18 mmol/L (20-32); Glucose* 108 mg/dL (60-115); Total Protein* 6.7 g/dL (6.0-8.3)
[2022-09-04 19:09] LABS: C Reactive Protein* 0.8 mg/dL (0.5-1.0)
[2022-09-04 19:23] LABS: Procalcitonin* 0.08 ng/mL (<0.50)
[2022-09-04 19:32] LABS: SARS PCR* Negative SARS-CoV-2 (Negative)
[2022-09-04 20:16] LABS: Lactate* 2.1 mmol/L (0.5-1.9)
[2022-09-04] MEDS: 0.9 % SODIUM CHLORIDE 1000 ml 1,000 ML IV ×2 (20:18→21:37)
[2022-09-04 21:02] LABS: Appearance Urine Clear (Clear); Bilirubin Urine Negative (Negative); Blood Urine Negative (Negative); Color Urine Yellow (Yellow); Glucose Urine 2+ (Negative); Ketones Urine Negative (Negative); Leukocyte Esterase Urine Negative (Negative); Nitrite Urine Negative (Negative); Protein Urine Negative (Negative); Specific Gravity Urine >= 1.030 (1.000-1.030); Urobilinogen Urine 0.2 (0.2-1.0); pH Urine 5.5 (5.0-8.5)
[2022-09-04 21:14] LABS: Ethanol* < 0.01 % (0.01-0.03)
[2022-09-04 21:24] LABS: RBC Urine 0-2 (0-2); Squamous Epithelial Cell Urine Few (None-Few); WBC Urine 0-2 (0-5)
[2022-09-04 21:25] LABS: Bacteria Urine Few
--- NOTE | 2022-09-04 22:34 | PM.IMCN1 ---
Date of Consult Consult date: 09/04/22 Requesting Physician: Other Primary Care Provider: Steven Sheth MD Consult Narrative Reason for consult: Leukocytosis, anemia, hypotension Narrative: Flynn Roy is a 71 year old male who presented to the ED today for symptomatic hypotension. He noted feeling poorly earlier today, held his BP medications (only took ASA), then had a drink (had been working on decreasing ETOH use until today), which made him feel even worse, so he presented to ED. No lower abdominal pain, + recent/intermittent epigastric pain (states possible ulcer in the past). ER Course/Findings: - hypotension (BP laine 70 systolic), responded well to IVFs - no tachycardia (notably not on BB) - Hgb 11.5, BUN 32 - WBC 12.9 with PMN predominance - lactate 4.4 -->2.1 - normal CRP and Procalcitonin Unfortunately, we do not know patient's baseline Hgb as [facility]. Hgb was 15.2 here in 2020. Review of Systems Status of ROS: Reports: 10 or more systems reviewed and unremarkable except as noted in History and below Narrative: + melanotic stools for 2+ weeks. Notes that he often feels lightheaded after taking his morning medications. No CP, intermittent dyspnea with exertion, chronic. History of chronic constipation, on fiber supplementation + Miralax. No dysuria. No fevers, no sore throat. No sick contacts. PFSH PFSH Social History Smoking Status: Former smoker What tobacco products do you use: cigarettes Smoking quit date/years: >15 years ago Do you use any of these nicotine containing products: None Second hand tobacco smoke exposure: Yes How often do you have a drink containing alcohol: monthly or less How many standard drinks containing alcohol do you have on a typical day: 1 or 2 How often do you have six or more drinks on one occasion: Never AUDIT-C Alcohol total score: 1 Non-prescribed substance use: denies use service: Yes Meds Home Medications and Allergies Home Medications Medication Instructions Recorded Confirmed Type HCTZ 12.5/Lisinopril 10 09/04/22 History amoxicillin 875 mg-potassium 1 tab PO Q12H 09/04/22 09/04/22 History clavulanate 125 mg tablet aspirin 81 mg tablet,delayed 81 mg PO DAILY 09/04/22 09/04/22 History release (Adult Aspirin Regimen) atorvastatin 40 mg tablet 40 mg PO DAILY 09/04/22 09/04/22 History dicyclomine 10 mg capsule 10 mg PO BID 09/04/22 09/04/22 History empagliflozin 25 mg tablet 25 mg PO DAILY 09/04/22 09/04/22 History empagliflozin 25 mg tablet 25 mg PO DAILY 09/04/22 09/04/22 History furosemide 20 mg tablet 20 mg PO DAILY 09/04/22 09/04/22 History isosorbide mononitrate 60 mg 60 mg PO DAILY 09/04/22 09/04/22 History tablet,extended release 24 hr spironolactone 25 mg tablet 25 mg PO DAILY 09/04/22 09/04/22 History Allergies Allergy/AdvReac Type Severity Reaction Status Date / Time No Known Drug Allergies Allergy Verified 09/04/22 20:39 Exam Narrative: Exam Narrative: Gen: HEENT: + conjunctival pallor, tongue protrudes midline CV: RRR, no concerning M/R/G R: LCTA B without concerning wheezing Ab: protuberant, no ttp Ext: no concerning edema Neuro: no focal deficits Const: Vital Signs, click to edit/add: Vital Signs - 24 hr 09/04/22 18:01 09/04/22 18:10 09/04/22 18:00 Temperature 99.6 F Pulse Rate Pulse Rate [Pulse Oximeter] 70 71 Blood Pressure Blood Pressure [Ri ght Upper Arm] 93/49 L 93/49 L Pulse Oximetry 97 97 97 Oxygen Delivery Me thod Room Air Room Air 09/04/22 18:28 09/04/22 18:30 09/04/22 18:31 Temperature Pulse Rate 67 67 68 Pulse Rate [Pulse Oximeter] Blood Pressure 83/48 L Blood Pressure [Ri ght Upper Arm] Pulse Oximetry 97 97 96 Oxygen Delivery Ok thod 09/04/22 18:45 09/04/22 19:00 09/04/22 19:01 Temperature Pulse Rate 76 69 69 Pulse Rate [Pulse Oximeter] Blood Pressure 97/52 L Blood Pressure [Ri ght Upper Arm] Pulse Oximetry 96 97 96 Oxygen Delivery Ok thod 09/04/22 19:03 09/04/22 19:15 09/04/22 19:30 Temperature Pulse Rate 70 67 71 Pulse Rate [Pulse Oximeter] Blood Pressure 97/52 L Blood Pressure [Ri ght Upper Arm] Pulse Oximetry 96 97 97 Oxygen Delivery Me thod 09/04/22 19:34 09/04/22 19:39 09/04/22 19:45 Temperature Pulse Rate 88 71 77 Pulse Rate [Pulse Oximeter] Blood Pressure 74/50 L Blood Pressure [Ri ght Upper Arm] Pulse Oximetry 97 97 98 Oxygen Delivery Me thod 09/04/22 20:00 09/04/22 20:01 09/04/22 20:28 Temperature Pulse Rate 84 87 64 Pulse Rate [Pulse Oximeter] Blood Pressure 87/54 L Blood Pressure [Ri ght Upper Arm] Pulse Oximetry 97 97 99 Oxygen Delivery Me thod 09/04/22 20:30 09/04/22 20:32 09/04/22 20:45 Temperature Pulse Rate 64 62 62 Pulse Rate [Pulse Oximeter] Blood Pressure 105/56 L Blood Pressure [Ri ght Upper Arm] Pulse Oximetry 99 99 97 Oxygen Delivery Me thod 09/04/22 21:00 09/04/22 21:01 Temperature Pulse Rate 60 67 Pulse Rate [Pulse Oximeter] Blood Pressure 98/52 L Blood Pressure [Ri ght Upper Arm] Pulse Oximetry 98 97 Oxygen Delivery Me thod Labs Labs: Short CBC 09/04/22 Range/Units 18:01 WBC 12.94 H (4.50-11.00) K/uL Hgb 11.5 L (13.5-17.5) gm/dL Hct 33.6 L (37.0-53.0) % Plt Count 224 (140-440) K/uL BMP 09/04/22 18:01 Sodium 135 Potassium 4.0 Chloride 105 Carbon Dioxide 18 L BUN 32 H Creatinine 1.4 Glucose 108 Calcium 9.3 Liver Function 09/04/22 Range/Units 18:01 Total Bilirubin 0.4 (0.1-1.5) mg/dL AST 22 (12-35) U/L ALT 26 (4-50) U/L Alkaline Phosphatase 78 (40-150) U/L Albumin 4.2 (3.3-5.0) g/dL Urine 09/04/22 Range/Units 20:42 Urine Color Yellow (Yellow) Urine Appearance Clear (Clear) Urine pH 5.5 (5.0-8.5) Ur Specific [place] >= 1.030 (1.000-1.030) Urine Protein Negative (Negative) Urine Glucose (UA) 2+ A (Negative) Assessment and Plan Assessment and plan (1) Acute hypotension: Problem comment: - likely iatrogenic, history of this. ddx includes dehydration, infection - noted elevated lactate, improved with IVF boluses - no nidus of infectious process identified - continue IVFs, recommend holding antihypertensives until f/u with PCP Status: Acute (2) Anemia: Problem comment: - chronicity unclear, patient unsure of baseline (15.2 here in 2020) - certainly warrants workup given melanotic stools and epigastric pain (if stable, can be done as outpatient) - notably only has mildly elevated BUN - recommend serial hemoglobins, PPI - hold ASA Status: Acute (3) Leukocytosis: Problem comment: - source unclear, patient afebrile with no localized symptoms (ddx stress demargination, mild recent diverticulitis) - reassuring CRP and Procalcitonin, elevated lactated improved with IVFs - currently on Augmentin as an outpatient (concern for recent diverticulitis flare, not noted on CT today). No need to continue Augmentin - follow clinically Status: Acute (4) Melanotic stools: Status: Acute Plan - per above - follow Hgb and WBC, PPI
[2022-09-04 22:45] LABS: Slide Review Reflex No
[2022-09-05] VITALS (19 sets, daily range): BP systolic 76–121; BP diastolic 39–64; PULSE 53–60; O2SAT 96–99
--- NOTE | 2022-09-05 06:15 | ED.NURSE ---
pt ambulated to restroom, no complaint of CP, being dizzy, or lightheaded.
[2022-09-05] MEDS: OMEPRAZOLE 20 MG CAPSULE DR 40 MG PO (07:29)
[2022-09-05 07:47] LABS: Basophils Absolute Auto 0.05 K/uL (0.00-0.30); Basophils Percent Auto 0.5 % (0.0-3.0); Eosinophils Absolute Auto 0.25 K/uL (0.00-0.50); Eosinophils Percent Auto 2.7 % (0.0-7.0); Hematocrit 31.5 % (37.0-53.0); Hemoglobin* 10.5 gm/dL (13.5-17.5); Immature Granulocytes Abs Auto 0.05 K/uL (0.00-0.30); Immature Granulocytes Pct Auto 0.5 %; Lymphocytes Percent Auto 19.6 % (20-44); Mean Corpuscular HGB Conc 33 gm/dL (32-36); Mean Corpuscular Hemoglobin 32 pg (26-34); Mean Corpuscular Volume 96 fL (80-100); Monocytes Percent Auto 9.5 % (0.0-11.0); Neutrophils Absolute Auto 6.33 K/uL (1.7-7.0); Neutrophils Percent Auto 67.2 % (42.0-72.0); Platelet Count* 187 K/uL (140-440); RDW Coefficient of Variation % 14.7 % (11.5-15.5); White Blood Count* 9.43 K/uL (4.50-11.00)
--- NOTE | 2022-09-05 07:48 | ED.GENADULT ---
HPI - General Adult General Chief complaint: Weakness Stated complaint: Low BP Black Stools Time Seen by Provider: 09/04/22 17:49 Source: patient and RN notes reviewed Mode of arrival: ambulatory Limitations: no limitations Related Data Home Medications Medication Instructions Recorded Confirmed HCTZ 12.5/Lisinopril 10 09/04/22 amoxicillin 875 mg-potassium 1 tab PO Q12H 09/04/22 09/04/22 clavulanate 125 mg tablet aspirin 81 mg tablet,delayed 81 mg PO DAILY 09/04/22 09/04/22 release (Adult Aspirin Regimen) atorvastatin 40 mg tablet 40 mg PO DAILY 09/04/22 09/04/22 dicyclomine 10 mg capsule 10 mg PO BID 09/04/22 09/04/22 empagliflozin 25 mg tablet 25 mg PO DAILY 09/04/22 09/04/22 empagliflozin 25 mg tablet 25 mg PO DAILY 09/04/22 09/04/22 furosemide 20 mg tablet 20 mg PO DAILY 09/04/22 09/04/22 isosorbide mononitrate 60 mg 60 mg PO DAILY 09/04/22 09/04/22 tablet,extended release 24 hr spironolactone 25 mg tablet 25 mg PO DAILY 09/04/22 09/04/22 Allergies Allergy/AdvReac Type Severity Reaction Status Date / Time No Known Drug Allergies Allergy Verified 09/04/22 20:39 [facility] Social History (Updated 09/04/22 @ 22:54 by Liberty Pradhan MD) Smoking Status: Former smoker What tobacco products do you use: cigarettes Smoking quit date/years: >15 years ago Do you use any of these nicotine containing products: None Second hand tobacco smoke exposure: Yes How often do you have a drink containing alcohol: monthly or less How many standard drinks containing alcohol do you have on a typical day: 1 or 2 How often do you have six or more drinks on one occasion: Never AUDIT-C Alcohol total score: 1 Non-prescribed substance use: denies use service: Yes Exam Const: Vital Signs, click to edit/add: Vital Signs - 24 hr 09/04/22 18:01 09/04/22 18:10 09/04/22 18:00 Temperature 99.6 F Pulse Rate Pulse Rate [Pulse Oximeter] 70 71 Blood Pressure Blood Pressure [Ri ght Upper Arm] 93/49 L 93/49 L Pulse Oximetry 97 97 97 Oxygen Delivery Me thod Room Air Room Air 09/04/22 18:28 09/04/22 18:30 09/04/22 18:31 Temperature Pulse Rate 67 67 68 Pulse Rate [Pulse Oximeter] Blood Pressure 83/48 L Blood Pressure [Ri ght Upper Arm] Pulse Oximetry 97 97 96 Oxygen Delivery Me thod 09/04/22 18:45 09/04/22 19:00 09/04/22 19:01 Temperature Pulse Rate 76 69 69 Pulse Rate [Pulse Oximeter] Blood Pressure 97/52 L Blood Pressure [Ri ght Upper Arm] Pulse Oximetry 96 97 96 Oxygen Delivery Me thod 09/04/22 19:03 09/04/22 19:15 09/04/22 19:30 Temperature Pulse Rate 70 67 71 Pulse Rate [Pulse Oximeter] Blood Pressure 97/52 L Blood Pressure [Ri ght Upper Arm] Pulse Oximetry 96 97 97 Oxygen Delivery Me thod 09/04/22 19:34 09/04/22 19:39 09/04/22 19:45 Temperature Pulse Rate 88 71 77 Pulse Rate [Pulse Oximeter] Blood Pressure 74/50 L Blood Pressure [Ri ght Upper Arm] Pulse Oximetry 97 97 98 Oxygen Delivery Me thod 09/04/22 20:00 09/04/22 20:01 09/04/22 20:28 Temperature Pulse Rate 84 87 64 Pulse Rate [Pulse Oximeter] Blood Pressure 87/54 L Blood Pressure [Ri ght Upper Arm] Pulse Oximetry 97 97 99 Oxygen Delivery Me thod 09/04/22 20:30 09/04/22 20:32 09/04/22 20:45 Temperature Pulse Rate 64 62 62 Pulse Rate [Pulse Oximeter] Blood Pressure 105/56 L Blood Pressure [Ri ght Upper Arm] Pulse Oximetry 99 99 97 Oxygen Delivery Me thod 09/04/22 21:00 09/04/22 21:01 09/04/22 21:02 Temperature Pulse Rate 60 67 64 Pulse Rate [Pulse Oximeter] Blood Pressure 98/52 L Blood Pressure [Ri ght Upper Arm] Pulse Oximetry 98 97 98 Oxygen Delivery Me thod 09/04/22 21:15 09/04/22 21:20 09/04/22 21:30 Temperature Pulse Rate 59 L 59 L 62 Pulse Rate [Pulse Oximeter] Blood Pressure 111/69 Blood Pressure [Ri ght Upper Arm] Pulse Oximetry 98 98 99 Oxygen Delivery Me thod 09/04/22 21:32 09/04/22 21:45 09/04/22 22:00 Temperature Pulse Rate 62 60 59 L Pulse Rate [Pulse Oximeter] Blood Pressure 103/43 L Blood Pressure [Ri ght Upper Arm] Pulse Oximetry 98 99 99 Oxygen Delivery Me thod 09/04/22 22:03 09/04/22 22:06 09/04/22 22:15 Temperature Pulse Rate 59 L 59 L 59 L Pulse Rate [Pulse Oximeter] Blood Pressure 83/51 L 114/53 L Blood Pressure [Ri ght Upper Arm] Pulse Oximetry 98 99 98 Oxygen Delivery Me thod 09/04/22 22:30 09/04/22 22:32 09/04/22 22:45 Temperature Pulse Rate 61 62 61 Pulse Rate [Pulse Oximeter] Blood Pressure Blood Pressure [Ri ght Upper Arm] Pulse Oximetry 98 98 98 Oxygen Delivery Me thod 09/04/22 23:00 09/04/22 23:01 09/04/22 23:15 Temperature Pulse Rate 58 L 60 59 L Pulse Rate [Pulse Oximeter] Blood Pressure 117/65 Blood Pressure [Ri ght Upper Arm] Pulse Oximetry 98 98 97 Oxygen Delivery Me thod 09/04/22 23:35 09/05/22 00:00 09/05/22 00:01 Temperature Pulse Rate 64 60 58 L Pulse Rate [Pulse Oximeter] Blood Pressure 103/55 L Blood Pressure [Ri ght Upper Arm] Pulse Oximetry 100 98 98 Oxygen Delivery Me thod 09/05/22 00:31 09/05/22 01:00 09/05/22 01:01 Temperature Pulse Rate 58 L 54 L 55 L Pulse Rate [Pulse Oximeter] Blood Pressure 103/53 L 76/39 L Blood Pressure [Ri ght Upper Arm] Pulse Oximetry 99 96 96 Oxygen Delivery Me thod 09/05/22 01:31 09/05/22 02:16 09/05/22 03:00 Temperature Pulse Rate 56 L 56 L 53 L Pulse Rate [Pulse Oximeter] Blood Pressure 110/56 L Blood Pressure [Ri ght Upper Arm] Pulse Oximetry 97 99 98 Oxygen Delivery Me thod 09/05/22 03:02 09/05/22 04:01 09/05/22 05:01 Temperature Pulse Rate 53 L Pulse Rate [Pulse Oximeter] Blood Pressure 101/55 L 76/39 L 104/57 L Blood Pressure [Ri ght Upper Arm] Pulse Oximetry 98 Oxygen Delivery Me thod Course Course Hospital Course: Will place an IV, have him on pulse oximetry, consider cardiac monitoring if worsening or needed. I will get a baseline EKG on him. He will have a full complement of labs include type and screen. I will initiate a L of normal saline, watch him closely to see if he needs more fluid resuscitation. Hemoglobin should not take that long to come back. I am going to initiate 80 mg IV Protonix in case this is upper GI bleeding. I am going to repeat the CT of his abdomen pelvis as he reports recent diverticulitis, need to ensure that there are not any complications with this. Vital Signs Vital signs: Initial Vital Signs Pulse Rate 71 09/04/22 18:00 Respiratory Depth Normal 09/04/22 18:00 Blood Pressure 93/49 L 09/04/22 18:00 Blood Pressure Mean 63 09/04/22 18:00 Blood Pressure Position Supine 09/04/22 18:00 Pulse Oximetry 97 09/04/22 18:00 Oxygen Delivery Method 09/04/22 18:00 Vital Signs Pulse Rate 71 09/04/22 18:00 Blood Pressure 93/49 L 09/04/22 18:00 Pulse Oximetry 97 09/04/22 18:00 Oxygen Delivery Method 09/04/22 18:00 Temperature 99.6 F 09/04/22 18:01 Pulse Rate 55 L 09/05/22 09:02 Blood Pressure 111/55 L 09/05/22 09:02 Pulse Oximetry 97 09/05/22 09:02 Oxygen Delivery Method 09/04/22 18:01 Medical Decision Making [facility] Narrative Medical decision making narrative: Update: 7:49 a.m.: Dr. Roach: Overnight, patient with improved blood pressures, sleeping comfortably most of the night. [facility] declined admission, no other facilities available. Had tried for [facility] and [facility] as well. No beds in the [facility] at [facility]. I suspect that the patient needs to reduce both his diuretics and nitrates. I need clarification on what he has most recently been prescribed and what he is actually most recently taking as it does seem to have a discrepancy. I would recommend a 50% dose reduction and potentially discharge if he is no longer hypotensive or weak on these doses. I have a feeling the hospital bed will still not be available and this may be our only option. Echo will be available this afternoon if this is needed in our medical decision making as well. Repeat labs are pending for this morning. Lab Data Labs: Lab Results 09/04/22 09/04/22 09/04/22 Range/Units 18:01 18:01 18:01 WBC 12.94 H (4.50-11.00) K/uL RBC 3.58 L (4.30-5.90) m/uL Hgb 11.5 L (13.5-17.5) gm/dL Hct 33.6 L (37.0-53.0) % MCV 94 (80-100) fL MCH 32 (26-34) pg MCHC 34 (32-36) gm/dL RDW Coeff of [place] 14.5 (11.5-15.5) % Plt Count 224 (140-440) K/uL Neut % (Auto) 72.6 H (42.0-72.0) % Lymph % (Auto) 17.0 L (20-44) % [place] % (Auto) 7.7 (0.0-11.0) % Eos % (Auto) 1.6 (0.0-7.0) % Baso % (Auto) 0.5 (0.0-3.0) % Neut # (Auto) 9.40 H (1.7-7.0) K/uL Lymph # (Auto) 2.20 (0.90-2.90) K/uL [place] # (Auto) 1.00 H (0.00-0.90) K/UL Eos # (Auto) 0.20 (0.00-0.50) K/uL Baso # (Auto) 0.10 (0.00-0.30) K/uL VBG pH (7.32-7.43) VBG pCO2 (40-50) mmHG VBG pO2 (25-47) mmHG VBG HCO3 (21-28) mmol/L Sodium 135 (135-149) mmol/L Potassium 4.0 (3.6-5.1) mmol/L Chloride 105 (96-114) mmol/L Carbon Dioxide 18 L (20-32) mmol/L BUN 32 H (7-30) mg/dL Creatinine 1.4 (0.5-1.5) mg/dL Estimated Creat Clear 53.89 Estimated GFR 54 ml/min Glucose 108 (60-115) mg/dL Lactate (0.5-1.9) mmol/L Calcium 9.3 (8.4-10.6) mg/dL Total Bilirubin 0.4 (0.1-1.5) mg/dL AST 22 (12-35) U/L ALT 26 (4-50) U/L Alkaline Phosphatase 78 (40-150) U/L C-Reactive Protein 0.8 (0.5-1.0) mg/dL Total Protein 6.7 (6.0-8.3) g/dL Albumin 4.2 (3.3-5.0) g/dL Procalcitonin 0.08 (<0.50) ng/mL Urine Color (Yellow) Urine Appearance (Clear) Urine pH (5.0-8.5) Ur Specific [place] (1.000-1.030) Urine Protein (Negative) Urine Glucose (UA) (Negative) Urine Ketones (Negative) Urine Blood (Negative) Urine Nitrite (Negative) Urine Bilirubin (Negative) Urine Urobilinogen (0.2-1.0) Ur Leukocyte Esterase (Negative) Urine RBC (0-2) Urine WBC (0-5) Ur Squamous Epith Cells (None-Few) Urine Bacteria (None) Ethyl Alcohol < 0.01 L (0.01-0.03) % SARS-CoV-2 (PCR) (Negative) POC Troponin I (0.01-0.04) ng/ml Blood Type O Negative Antibody Screen NEGATIVE 09/04/22 09/04/22 09/04/22 Range/Units 18:01 18:02 18:02 WBC (4.50-11.00) K/uL RBC (4.30-5.90) m/uL Hgb (13.5-17.5) gm/dL Hct (37.0-53.0) % MCV (80-100) fL MCH (26-34) pg MCHC (32-36) gm/dL RDW Coeff of [place] (11.5-15.5) % Plt Count (140-440) K/uL Neut % (Auto) (42.0-72.0) % Lymph % (Auto) (20-44) % [place] % (Auto) (0.0-11.0) % Eos % (Auto) (0.0-7.0) % Baso % (Auto) (0.0-3.0) % Neut # (Auto) (1.7-7.0) K/uL Lymph # (Auto) (0.90-2.90) K/uL [place] # (Auto) (0.00-0.90) K/UL Eos # (Auto) (0.00-0.50) K/uL Baso # (Auto) (0.00-0.30) K/uL VBG pH 7.394 (7.32-7.43) VBG pCO2 31 L (40-50) mmHG VBG pO2 100.0 H (25-47) mmHG VBG HCO3 19 L (21-28) mmol/L Sodium (135-149) mmol/L Potassium (3.6-5.1) mmol/L Chloride (96-114) mmol/L Carbon Dioxide (20-32) mmol/L BUN (7-30) mg/dL Creatinine (0.5-1.5) mg/dL Estimated Creat Clear Estimated GFR ml/min Glucose (60-115) mg/dL Lactate 4.4 H* (0.5-1.9) mmol/L Calcium (8.4-10.6) mg/dL Total Bilirubin (0.1-1.5) mg/dL AST (12-35) U/L ALT (4-50) U/L Alkaline Phosphatase (40-150) U/L C-Reactive Protein (0.5-1.0) mg/dL Total Protein (6.0-8.3) g/dL Albumin (3.3-5.0) g/dL Procalcitonin (<0.50) ng/mL Urine Color (Yellow) Urine Appearance (Clear) Urine pH (5.0-8.5) Ur Specific [place] (1.000-1.030) Urine Protein (Negative) Urine Glucose (UA) (Negative) Urine Ketones (Negative) Urine Blood (Negative) Urine Nitrite (Negative) Urine Bilirubin (Negative) Urine Urobilinogen (0.2-1.0) Ur Leukocyte Esterase (Negative) Urine RBC (0-2) Urine WBC (0-5) Ur Squamous Epith Cells (None-Few) Urine Bacteria (None) Ethyl Alcohol (0.01-0.03) % SARS-CoV-2 (PCR) Negative SARS-CoV-2 (Negative) POC Troponin I 0.00 L (0.01-0.04) ng/ml Blood Type Antibody Screen 09/04/22 09/04/22 09/05/22 Range/Units 20:13 20:42 07:42 WBC 9.43 (4.50-11.00) K/uL RBC 3.30 L (4.30-5.90) m/uL Hgb 10.5 L (13.5-17.5) gm/dL Hct 31.5 L (37.0-53.0) % MCV 96 (80-100) fL MCH 32 (26-34) pg MCHC 33 (32-36) gm/dL RDW Coeff of [place] 14.7 (11.5-15.5) % Plt Count 187 (140-440) K/uL Neut % (Auto) 67.2 (42.0-72.0) % Lymph % (Auto) 19.6 L (20-44) % [place] % (Auto) 9.5 (0.0-11.0) % Eos % (Auto) 2.7 (0.0-7.0) % Baso % (Auto) 0.5 (0.0-3.0) % Neut # (Auto) 6.33 (1.7-7.0) K/uL Lymph # (Auto) 1.80 (0.90-2.90) K/uL [place] # (Auto) 0.90 (0.00-0.90) K/UL Eos # (Auto) 0.25 (0.00-0.50) K/uL Baso # (Auto) 0.05 (0.00-0.30) K/uL VBG pH (7.32-7.43) VBG pCO2 (40-50) mmHG VBG pO2 (25-47) mmHG VBG HCO3 (21-28) mmol/L Sodium (135-149) mmol/L Potassium (3.6-5.1) mmol/L Chloride (96-114) mmol/L Carbon Dioxide (20-32) mmol/L BUN (7-30) mg/dL Creatinine (0.5-1.5) mg/dL Estimated Creat Clear Estimated GFR ml/min Glucose (60-115) mg/dL Lactate 2.1 H (0.5-1.9) mmol/L Calcium (8.4-10.6) mg/dL Total Bilirubin (0.1-1.5) mg/dL AST (12-35) U/L ALT (4-50) U/L Alkaline Phosphatase (40-150) U/L C-Reactive Protein (0.5-1.0) mg/dL Total Protein (6.0-8.3) g/dL Albumin (3.3-5.0) g/dL Procalcitonin (<0.50) ng/mL Urine Color Yellow (Yellow) Urine Appearance Clear (Clear) Urine pH 5.5 (5.0-8.5) Ur Specific [place] >= 1.030 (1.000-1.030) Urine Protein Negative (Negative) Urine Glucose (UA) 2+ A (Negative) Urine Ketones Negative (Negative) Urine Blood Negative (Negative) Urine Nitrite Negative (Negative) Urine Bilirubin Negative (Negative) Urine Urobilinogen 0.2 (0.2-1.0) Ur Leukocyte Esterase Negative (Negative) Urine RBC 0-2 (0-2) Urine WBC 0-2 (0-5) Ur Squamous Epith Cells Few (None-Few) Urine Bacteria Few A (None) Ethyl Alcohol (0.01-0.03) % SARS-CoV-2 (PCR) (Negative) POC Troponin I (0.01-0.04) ng/ml Blood Type Antibody Screen 09/05/22 Range/Units 07:42 WBC (4.50-11.00) K/uL RBC (4.30-5.90) m/uL Hgb (13.5-17.5) gm/dL Hct (37.0-53.0) % MCV (80-100) fL MCH (26-34) pg MCHC (32-36) gm/dL RDW Coeff of [place] (11.5-15.5) % Plt Count (140-440) K/uL Neut % (Auto) (42.0-72.0) % Lymph % (Auto) (20-44) % [place] % (Auto) (0.0-11.0) % Eos % (Auto) (0.0-7.0) % Baso % (Auto) (0.0-3.0) % Neut # (Auto) (1.7-7.0) K/uL Lymph # (Auto) (0.90-2.90) K/uL [place] # (Auto) (0.00-0.90) K/UL Eos # (Auto) (0.00-0.50) K/uL Baso # (Auto) (0.00-0.30) K/uL VBG pH (7.32-7.43) VBG pCO2 (40-50) mmHG VBG pO2 (25-47) mmHG VBG HCO3 (21-28) mmol/L Sodium 136 (135-149) mmol/L Potassium 4.9 (3.6-5.1) mmol/L Chloride 109 (96-114) mmol/L Carbon Dioxide 23 (20-32) mmol/L BUN 25 (7-30) mg/dL Creatinine 0.9 (0.5-1.5) mg/dL Estimated Creat Clear 75.44 Estimated GFR 92 ml/min Glucose 100 (60-115) mg/dL Lactate (0.5-1.9) mmol/L Calcium 8.4 (8.4-10.6) mg/dL Total Bilirubin (0.1-1.5) mg/dL AST (12-35) U/L ALT (4-50) U/L Alkaline Phosphatase (40-150) U/L C-Reactive Protein (0.5-1.0) mg/dL Total Protein (6.0-8.3) g/dL Albumin (3.3-5.0) g/dL Procalcitonin (<0.50) ng/mL Urine Color (Yellow) Urine Appearance (Clear) Urine pH (5.0-8.5) Ur Specific [place] (1.000-1.030) Urine Protein (Negative) Urine Glucose (UA) (Negative) Urine Ketones (Negative) Urine Blood (Negative) Urine Nitrite (Negative) Urine Bilirubin (Negative) Urine Urobilinogen (0.2-1.0) Ur Leukocyte Esterase (Negative) Urine RBC (0-2) Urine WBC (0-5) Ur Squamous Epith Cells (None-Few) Urine Bacteria (None) Ethyl Alcohol (0.01-0.03) % SARS-CoV-2 (PCR) (Negative) POC Troponin I (0.01-0.04) ng/ml Blood Type Antibody Screen Discharge Plan Discharge Clinical Impression: Acute hypotension, Melanotic stools Patient Disposition: Home, Self-Care Condition: Improved Additional Instructions: At this time you should cut hydrochlorothiazide/lisinopril in half, continue Lasix as needed for leg swelling, decrease Imdur to 30 mg daily (so cut this pill in half), resume spironolactone at 12.5 mg (half tablet) daily. All other medications will remain the same. We will get you the information he needs to that you can set up a primary care provider here [place], and have a upper endoscopy scheduled. If you develop bright red blood per rectum, you should return to the emergency department. Please call [phone] to schedule a follow up appointment. Prescriptions: No Action aspirin [Adult Aspirin Regimen] 81 mg tablet,delayed release (DR/EC) 81 mg PO DAILY spironolactone 25 mg tablet 25 mg PO DAILY empagliflozin 25 mg tablet 25 mg PO DAILY furosemide 20 mg tablet 20 mg PO DAILY isosorbide mononitrate 60 mg tablet extended release 24 hr 60 mg PO DAILY atorvastatin 40 mg tablet 40 mg PO DAILY amoxicillin-pot clavulanate 875-125 mg tablet 1 tab PO Q12H empagliflozin 25 mg tablet 25 mg PO DAILY dicyclomine 10 mg capsule 10 mg PO BID HCTZ 12.5/Lisinopril 10 Follow Up/Referrals: Steven Sheth MD [Primary Care Provider] - Stand Alone Forms: [facility] Info Instructions
[2022-09-05 07:58] LABS: Slide Review Reflex No
[2022-09-05 07:59] LABS: Chloride* 109 mmol/L (96-114); Potassium* 4.9 mmol/L (3.6-5.1); Sodium* 136 mmol/L (135-149)
[2022-09-05 08:01] LABS: Creatinine* 0.9 mg/dL (0.5-1.5); Est. Creatinine Clearance* 75.44; Estimated Glomerular Filt Rate 92 ml/min
[2022-09-05 08:02] LABS: Blood Urea Nitrogen* 25 mg/dL (7-30); Calcium* 8.4 mg/dL (8.4-10.6); Carbon Dioxide* 23 mmol/L (20-32); Glucose* 100 mg/dL (60-115)
== END 2022-09-05 10:08 | disposition home or self-care (01) ==
PROVIDERS: Family Medicine; Emergency Provider Family Medicine; PCP Family Medicine
DX: I95.9 Hypotension, unspecified (principal); D64.9 Anemia, unspecified; D72.829 Elevated white blood cell count, unspecified; K92.1 Melena
CPT/HCPCS: 36415; 71260; 74177; 80048; 80053; 81001; 82077; 82803; 83605; 84145; 84484; 85025; 86140; 86850; 86900; 86901; 87040; 87086; 87635; 93005; 94761; 96374; 99284; 99285; A9270; C9113; J7030; Q9967

== ENCOUNTER 2024-04-23 04:00 | Emergency (ER) | payer OTHER, SELFPAY ==
[2024-04-23 05:17] VITALS: BP 110/66; PULSE 74; RESP 16; TEMP 36.6; O2SAT 100; BMI 31.2
--- NOTE | 2024-04-23 05:47 | CRLHL7_ITS ---
For Patients: As a result of the Century Cures Act, medical imaging exams and procedure reports are released immediately into your electronic medical record. You may view this report before your referring provider. If you have questions, please contact your health care provider. INDICATION: Blood and air in urine TECHNIQUE: Axial images were obtained from the diaphragm to the pubic symphysis. Reformats were obtained in the coronal and sagittal plane. IV Contrast: 100 cc Isovue 370 Oral Contrast: None COMPARISON: Chest, abdomen and pelvis CT 09/04/2022 FINDINGS: Lower chest: Scattered discoid atelectasis lung bases. Coronary atherosclerosis. Liver: Normal in contour with hepatic cyst at the dome of the liver measuring 12 millimeters. Two additional hypodensities are identified which are too small for characterization although these are stable compared to the 2022 exam. Gallbladder and bile ducts: Unremarkable. No stones or inflammation. No biliary dilatation. Spleen: Unremarkable. Normal in size without mass. Pancreas: Unremarkable. No mass or inflammation. Adrenal glands: Hypodense left adrenal nodule arising from the lateral limb measuring 17 millimeters, stable compared to the prior exam. Kidneys: No evidence of hydronephrosis. Left renal scarring redemonstrated at the upper pole. Vasculature: Atherosclerosis with the right common iliac artery measuring 19 millimeters and the left common iliac artery also measuring 19 millimeters. These are also similar to the 2022 exam. GI tract: The stomach is decompressed. No dilated loops of small intestine. 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 Appendix unremarkable. Large amount of stool within the colon. Underlying colonic diverticulosis with prominent wall thickening of the sigmoid colon and adjacent fat stranding. Communication to an air and fluid-filled structure with prominent rim consistent with a peridiverticular abscess measuring 7.2 x 4.3 centimeters. This extends to the level of the dome of the bladder. Associated wall thickening of the dome of the bladder with communication to the abscess with air throughout the bladder lumen (5, 95). Pelvis: Thick-walled bladder with communication to the peridiverticular abscess as above. Mild prostatic calcification. 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 Bilateral hip osteoarthritis. 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 IMPRESSION: 1. Colonic diverticulitis with prominent peridiverticular abscess measuring 7.2 x 4.3 centimeters with communication to the bladder lumen. 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 2. Multiple stable incidental findings as detailed above. Please note that all CT scans at this facility use dose modulation, iterative reconstruction, and/or weight-based dosing when appropriate to reduce radiation dose to as low as reasonably achievable. Dictated by Keshawn Saunders MD @ 04/23/2024 7:13:20 AM (Electronically Signed)
[2024-04-23 06:00] LABS: Lactate Sepsis w/Reflex* 2.7 mmol/L (0.5-1.9)
[2024-04-23 06:02] LABS: Basophils Percent Auto 0.2 % (0.0-3.0); Eosinophils Percent Auto 0.2 % (0.0-7.0); Hematocrit 39.5 % (37.0-53.0); Hemoglobin* 13.1 gm/dL (13.5-17.5); Immature Granulocytes Pct Auto 0.4 %; Lymphocytes Percent Auto 5.1 % (20-44); Mean Corpuscular HGB Conc 33 gm/dL (32-36); Mean Corpuscular Hemoglobin 31 pg (26-34); Mean Corpuscular Volume 95 fL (80-100); Monocytes Percent Auto 6.7 % (0.0-11.0); Neutrophils Percent Auto 87.4 % (42.0-72.0); Platelet Count* 302 K/uL (140-440); RDW Coefficient of Variation % 13.8 % (11.5-15.5); Red Blood Count 4.17 m/uL (4.30-5.90); White Blood Count* 19.04 K/uL (4.50-11.00)
[2024-04-23 06:03] LABS: Slide Review Reflex No
[2024-04-23 06:17] LABS: Chloride* 94 mmol/L (96-114)
[2024-04-23 06:18] LABS: Sodium* 137 mmol/L (135-149)
[2024-04-23 06:20] LABS: Creatinine* 0.9 mg/dL (0.5-1.5); Est. Creatinine Clearance* 73.29; Estimated Glomerular Filt Rate 91 ml/min
[2024-04-23 06:21] LABS: Blood Urea Nitrogen* 25 mg/dL (7-30); Calcium* 9.1 mg/dL (8.4-10.6); Carbon Dioxide* 37 mmol/L (20-32); Glucose* 118 mg/dL (60-115)
[2024-04-23 06:22] LABS: Potassium* 2.4 mmol/L (3.6-5.1)
[2024-04-23 06:23] LABS: Anion Gap 6 mEq/L (7-15)
[2024-04-23 06:38] LABS: C Reactive Protein* 18.2 mg/dL (0.5-1.0)
--- OUTSIDE RECORDS SUMMARY | 2024-04-23 07:09 | XMS_ITS | Encounter Summary ---
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 This section includes the names of all active insurance providers for the patient. Insurance Provider Type of Coverage Plan Name Start of Policy Coverage End of Policy Coverage Group Number Member ID Insurance Provider's Telephone Number Policy Weinstein's Name Patient's Relationship to Policy Weinstein MEDICARE (WNR) MEDICARE (M) PART A Sep 29, 2016 PART A [phone] JUDY WEAVER PATIENT Selected Encounter This section includes the information on record at [facility] for the Encounter. Date/Time Encounter Type Encounter Description Reason Provider Source Dec 15, 2023 04:08 PM Outpatient Encounter ADMIN PAT ACTIVTIES (MASNONCT) LINO BENITEZ Alex Encounter Template Text not used by [facility] Plan of Treatment: Future Appointments (+ 6 months) and Future Tests (+/- 45 days) The Plan of Treatment section includes future care activities for the patient from all [place] treatmentfacilities. This section includes future appointments and future orders which are active, pending or scheduled. Future Appointments This section includes appointments that were scheduled to occur 6 months from the date of the Encounter, up to a maximum of 20 appointments. The data comes from all [place] treatment facilities. Appointment Date/Time Appointment Type Appointme nt Facility Name December 29, 2023 08:45 AM AMBULATORY - SURGERY CARLOS COLUNGA [facility] January 24, 2024 07:00 AM AMBULATORY - NONE RIMMA VARGHESE [facility] Jan 30, 2024 09:30 AM AMBULATORY - MEDICINE WILFREDO KHANNA [facility] Apr 21, 2024 07:28 AM AMBULATORY - MEDICINE WILFREDO KHANNA [facility] Apr 27, 2024 02:30 [facility] Social History: Smoking Status (Most current) and Tobacco Use (All prior to encounter date) This section includes the most current, and the historical, smoking and tobacco- related health factors from the [place] facility where the Encounter took place. Current Smoking Status This section includes the most current smoking, or tobacco-related health factor, from the [place] facility where the Encounter took place. 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 The data comes from the [place] facility where the Encounter took place. Date/Time Smoking Status/Tobacco Use Comment F acility May 06, 2023 11:30 AM VA-TOBACCO QUIT 15 YRS OR MORE [facility] Jun 04, 2022 09:00 AM 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 [facility] Jun 04, 2022 09:00 AM VA-TOBACCO QUIT 15 YRS OR MORE [facility] Jul 10, 2021 08:00 AM 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 [facility] Jul 10, 2021 08:00 AM VA-TOBACCO QUIT 5 TO < 15 YRS [facility] May 23, 2020 08:30 AM 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 [facility] May 23, 2020 08:30 AM VA-TOBACCO QUIT 5 TO < 15 YRS [facility] Mar 20, 2019 04:03 PM 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 [facility] Mar 20, 2019 04:03 PM VA-TOBACCO QUIT 5 TO < 15 YRS [facility] Mar 21, 2018 08:13 AM FORMER TOBACCO USER 7Y OR GREATE R [facility] Feb 24, 2017 09:24 AM FORMER TOBACCO USER 7Y OR GREATE R [facility] January 07, 2016 08:01 AM FORMER TOBACCO USE >1Y <7Y [facility] Feb 03, 2015 07:58 AM FORMER TOBACCO USE <1Y [facility] Feb 26, 2014 08:41 AM CURRENT TOBACCO USER [facility] May 13, 2011 01:45 PM CURRENT TOBACCO USER [facility] Advance Directives: All historical and current Section Date Range: From patient's date of to the date document was created. This section includes ALL of a patient's completed or amended [place] Advance and Rescinded Directives. The entries below indicate that a directive exists for the patient, but an actual copy is not included with this document. The data comes from all [place] facilities. Date Advance Directives Provider Source Mar 23, 2016 CLINICAL WARNING TIM TERAN [facility] Encounter Notes: All associated encounter notes This section contains the clinical notes associated to the Encounter. Date/Time Encounter Note(s) Provider Source Dec 15, 2023 04:08 PM PULMONARY NOTE: LOCAL TITLE: PULMONARY LUNG CANCER SCREENING STANDARD TITLE: PULMONARY NOTE DATE OF NOTE: DEC 15, 2023@16:08 ENTRY DATE: DEC 15, 2023@16:08:53 AUTHOR: ELIGIO JOE EXP COSIGNER: URGENCY: STATUS: COMPLETED Repeat Lung Cancer Screen (Provider): Patient continues to be a candidate for screening, there are no new clinical exclusions. No abnormal findings suspicious for lung CA present on last chest CT. Screening process reviewed with patient and patient AGREES to continue screening. Chest CT will be ordered. Based on chart review. /alexi/ ELIGIO JOE MA, RN LCS Household Manager Signed: 12/15/2023 16:10 ELIGIO JOE [facility]
--- OUTSIDE RECORDS SUMMARY | 2024-04-23 07:09 | XMS_ITS | Continuity of Care Document ---
Author Name [facility] Organization [facility] Care Team Providers Care Settlement Processor Name Role Phone [facility] Unavailable Unavailable Problems Combined list of problems from Department of Defense and Veterans Affairs facilities. It does not include entries that were removed or entered in error. Problem Status Onset Date Problem Type Date of Resolution Comments Source Multiple nodules of lung Active 11/12/19 21 Condition Nov 24, 2021 Entered By: NATIVIDAD WHEELER Comment: 11.11.2020 Initial LDCT. 11.24.2021 LDCT completed. 12 month surveillance recommended. [facility] Abdominal aortic aneurysm Active 05/05/20 20 Condition May 08, 2020 Entered By: NATIVIDAD WHEELER Comment: 05.05.[address]: O.9cm thrombosed saccular aneurysm to distal abdominal aorta. [facility] Pancreatic cyst Active 05/05/20 20 Condition Jul 24, 2021 Entered By: NATIVIDAD WHEELER Comment: 05.05.[address]: 0.7cm low-attenuation lesion tail of pancrease. Annual surveillance x 5 yr suggested for lesions < 1.5cm. 07.24.2021 CT completed. [facility] Diverticular disease Active 02/14/20 19 Condition 05/23/2020 Nov 13, 2020 Entered By: NATIVIDAD WHEELER Comment: By 02.13.[address] 03.14.2020 O[facility](ED [place], [place]): Pt. Declined Admission. 03.14.2020 CT with Mild Sigmoid diverticulitis. 04.23.2020 ED([facility]): Declined admission. [facility] Steatosis of liver Active 02/14/20 19 Condition Feb 16, 2019 Entered By: NATIVIDAD WHEELER Comment: By 02.13.[address] [facility] Decreased vitamin D Active 02/25/20 17 Condition Jul 13, 2021 Entered By: NATIVIDAD WHEELER Comment: 02.24.2017 Vitamin D 26ng/mL. [facility] Colonoscopy normal Active 05/28/20 14 Condition Jul 07, 2020 Entered By: NATIVIDAD WHEELER Comment: 05.28.2014 Procedure: No biopsies. 07.07.2020 Procedure: No Biopsoes . No additional CRC surveillance recommended by therapeutic consultant. [facility] Impaired Fasting Glucose (SCT [id number]) Active 02/27/20 14 Condition Jul 13, 2021 Entered By: NATIVIDAD WHEELER Comment: 02.26.2014 A1c 5.8%. [facility] Carpal tunnel syndrome Active 11/29/19 12 Condition Jul 13, 2021 Entered By: NATIVIDAD WHEELER Comment: 11.29.2011 Abnormal LUE EMG (C-7 & Median N.). 01.15.2016 Abnormal RUE EMG(Median N.). [facility] Adrenal mass Active Condition Jul 24, 2021 Entered By: NATIVIDAD WHEELER Comment: 03.14.[address]: Stable 1.4cm L Adrenal Nodule. 05.05.[address]: 1.5cm L Adrenal Nodule. 07.24.2021 CT completed. [facility] Aneurysm of common iliac artery Active Condition Jul 16, 2021 Entered By: NATIVIDAD WHEELER Comment: 03.21.2017 U/S: L 2.0. 02.13.2019 CT: 2.0cm(R/L). 05.05.2020 CT: 1.9cm(R/L). 07.16.2021 R GAIL 1.9cm. L GAIL 2.0cm. [facility] Cannabis misuse Active [facility] Cervicalgia Active Condition Apr 07, 2017 Entered By: NATIVIDAD WHELEER Comment: 03.22.2017 C-S MRI: Advanced Cervical Spondylosis; Multi-level High Grade Foraminal Narrowing. [facility]ITC Primary Care Active Condition 2022 Entered By: NATIVIDAD WHEELER Comment: [facility] Primary: Dr. Cathi Simeon, [facility], [place] [address]. [facility] Coronary artery disease Active Condition Feb 24, 2017 Entered By: NATIVIDAD WHEELER Comment: 03.23.2016 PCI: RCA stent(s). 12 month clopidogrel prescribed. [facility] Ex-tobacco user Active [facility] Hi[facility] hernia Active [facility] History of surgery Active Condition Aug 25, 2018 Entered By: NATIVIDAD WHEELER Comment: 09.02.2014 Left CTR. 09.03.2015 Hemorrhoidectom y. [facility] Hyperlipidemia Active Condition [facility] Hypertension Active Condition [facility] Impulse control disorder Active Condition [facility] Infarction of kidney Active Condition Feb 16, 2019 Entered By: NATIVIDAD WHEELER Comment: By 02.13.[address]: Large old infarction interpolar region and upper pole of R kidney. [facility] Pain of both knees Active Condition [facility] Shoulder Pain (SCT [id number]) [facility] Sleep apnea Active Condition Feb 24, 2017 Entered By: NATIVIDAD WHEELER Comment: CPAP has been prescribed - not routinely using device. [facility] Trigger finger Active Condition [facility] Wrist pain Active Condition [facility] Diagnosis: ICD-10-CM N32.81 Overactive bladder Active Diagnosis [facility] Diagnosis: ICD-10-CM I25.10 Athscl heart disease of cheesh-na coronary artery w/o ang pctrs Active Diagnosis [facility] Diagnosis: ICD-10-CM H90.3 Sensorineural hearing loss, bilateral Active Diagnosis [facility] Diagnosis: ICD-10-CM Z01.118 Encntr for exam of ears and hearing w oth abnormal findings Active Diagnosis [facility] Diagnosis: ICD-10-CM K59.00 Constipation, unspecified Active Diagnosis [facility] Diagnosis: ICD-10-CM K63.89 Other specified diseases of intestine Active Diagnosis [facility] Diagnosis: ICD-10-CM Z72.0 Tobacco use Active Diagnosis [facility] Diagnosis: ICD-10-CM K57.32 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 Active Diagnosis [facility] Diagnosis: ICD-10-CM H60.513 Acute actinic otitis externa, bilateral Active Diagnosis [facility] Diagnosis: ICD-10-CM Z23 Encounter for immunization Active Diagnosis [facility] Medications Combined list of outpatient medications from Department of Defense and Veterans Affairs facilities.Medications provided include 1) outpatient medications from the last 15 months, and 2) patient-reported medications. Medication Details Route Status Patient Instructions Prescription Expires Prescription Number Last Dispense Date Ordering Provider Order Date Order Qty Source ATORVASTATI N CA 40MG TAB ATORVAST ATIN CA 40MG TAB Active TAKE ONE-HALF TABLET BY MOUTH AT BEDTIME FOR CHOLESTE ROL Jul 15, 2023 45 Jul 15, 2024 [id number] Apr 03, 2024 [facility] 07/15/2024 [id number] JATINDER BENITEZ 2022 [address] [place] [facility] ATORVASTATI N CA 40MG TAB ATORVAST ATIN CA 40MG TAB TAKE ONE-HALF TABLET BY MOUTH AT BEDTIME FOR CHOLESTE ROL May 14, 2022 45 May 15, 2023 [id number] G Mar 25, 2023 EYAD CASON [facility] 05/15/2023 [id number] EYAD CASON 2021 45 [place] [facility] BISACODYL 5MG TAB,EC BISACODY L 5MG TAB,EC TAKE TWO TABLETS BY MOUTH ONCE FOR COLON PREP FOR COLON PREP Aug 15, 2023 2 Sep 14, 2023 [id number] Aug 15, 2023 [facility] 09/14/2023 [id number] PRAFUL RODRIGUEZ 2022 2 [facility] EMPAGLIFLOZ IN 25MG TAB EMPAGLIF LOZIN 25MG TAB Active TAKE ONE-HALF TABLET BY MOUTH EVERY DAY January 16, 2024 45 January 16, 2025 [id number] January 17, 2024 [facility] ORAL ACTIVE 01/16/2025 [id number] JATINDER BENITEZ 2023 45 [place] [facility] EMPAGLIFLOZ IN 25MG TAB EMPAGLIF LOZIN 25MG TAB TAKE ONE-HALF TABLET BY MOUTH EVERY DAY Oct 25, 2022 45 Oct 26, 2023 [id number] Ramsey 2023 [facility] 10/26/2023 [id number] JATINDER BENITEZ 2022 45 [facility] FUROSEMIDE 20MG TAB FUROSEMI DE 20MG TAB Active TAKE ONE TABLET BY MOUTH EVERY DAY NEEDED FOR EXCESS FLUID TAKE ONE TABLET FOR WEIGHT GAIN OF 3 POUNDS OVERNIGH T OR MORE THAN 5 POUNDS IN 1 WEEK OR LEG SWELLING FOR EXCESS FLUID January 16, 2024 90 January 16, 2025 [id number] Apr 06, 2024 LINO WEINBERGO [place] [facility] ORAL ACTIVE 01/16/2025 [id number] JATINDER BENITEZ 2023 90 [facility] FUROSEMIDE 20MG TAB FUROSEMI DE 20MG TAB TAKE ONE TABLET BY MOUTH EVERY DAY NEEDED TAKE ONE TABLET FOR WEIGHT GAIN OF 3 POUNDS OVERNIGH T OR MORE THAN 5 POUNDS IN 1 WEEK OR LEG SWELLING TAKE ONE TABLET FOR WEIGHT GAIN OF 3 POUNDS OVERNIGH T OR MORE THAN 5 POUNDS IN 1 WEEK OR LEG SWELLING Oct 25, 2022 90 Oct 26, 2023 [id number] Sep 19, 2023 [facility] [place] [facility] ORAL 10/26/2023 [id number] JATINDER BENITEZ 2022 90 [facility] HYDROCHLORO THIAZIDE 12.5MG/NANDO NOPRIL 10MG TAB HYDROCHL OROTHIAZ FIORELLA 12.5MG/L ISINOPRI L 10MG TAB Active: Susp TAKE ONE HALF TABLET BY MOUTH EVERY DAY FOR BLOOD PRESSURE FOR BLOOD PRESSURE Nov 21, 2023 45 Nov 21, 2024 [id number] May 09, 2024 [facility] 11/21/2024 [id number] JATINDER BENITEZ 2023 45 [place] [facility] HYDROCHLORO THIAZIDE 12.5MG/NANDO NOPRIL 10MG TAB HYDROCHL OROTHIAZ FIORELLA 12.5MG/L ISINOPRI L 10MG TAB TAKE ONE HALF TABLET BY MOUTH EVERY DAY FOR BLOOD PRESSURE FOR BLOOD PRESSURE Oct 25, 2022 45 Oct 26, 2023 [id number] Aug 17, 2023 [place] [facility] 10/26/2023 [id number] KEOJATINDER THAYER 2022 45 [place] [facility] ISOSORBIDE MONONITRATE 30MG TAB,SA ISOSORBI DE MONONITR ATE 30MG TAB,SA Active TAKE ONE TABLET BY MOUTH EVERY DAY FOR CHEST PAIN FOR CHEST PAIN Dec 19, 2023 90 Dec 19, 2024 [id number] Mar 09, 2024 [facility] [facility] 12/19/2024 [id number] ELI JATINDER [place] 2023 90 [place] [facility] [facility] ISOSORBIDE MONONITRATE 30MG TAB,SA ISOSORBI DE MONONITR ATE 30MG TAB,SA TAKE ONE TABLET BY MOUTH EVERY DAY FOR CHEST PAIN FOR CHEST PAIN Oct 25, 2022 90 Oct 26, 2023 [id number] Sep 19, 2023 [facility] [place] [facility] OR[facility] 10/26/2023 [id number] ELI JATINDER [place] 2022 90 [place] [facility] [facility] NITROGLYCER IN 0.4MG TAB,SUBLING UAL NITROGLY CERIN 0.4MG TAB,SUBL INGUAL Active DISSOLVE ONE TABLET UNDER THE TONGUE THREE TIMES A DAY NEEDED CHEST PAIN FOR CHEST PAIN * MAY REPEAT EVERY 5 MINUTES- -NO MORE THAN 3 TOTAL CHEST PAIN Nov 21, 2023 100 Nov 21, 2024 [id number] Nov 21, 2023 LIN[facility] [place] [facility] SUBLIN GUAL ACTIVE 11/21/2024 [id number] ELI JATINDER [place] 2023 100 [place] [facility] [facility] NITROGLYCER IN 0.4MG TAB,SUBLING UAL NITROGLY CERIN 0.4MG TAB,SUBL INGUAL Disconti nued DISSOLVE ONE TABLET UNDER THE TONGUE THREE TIMES A DAY NEEDED FOR CHEST PAIN * MAY REPEAT EVERY 5 MINUTES- -NO MORE THAN 3 TOTAL CHEST PAIN May 13, 2023 100 May 13, 2024 [id number] May 13, 2023 [facility] [place] [facility] [facility] SUBLIN GUAL DISCONT INUED 05/13/2024 [id number] JATINDER BENITEZ 2022 100 [place] [facility] PEG-3350/EL ECTROLYTES PWDR PEG-3350 /ELECTRO LYTES PWDR TAKE ONE CONTAINE R BY MOUTH DIRECTED FOR COLON PREP FOR COLON PREP Aug 15, 2023 1 Sep 14, 2023 [id number] Aug 15, 2023 [facility] ORAL 09/14/2023 [id number] PRAFUL RODRIGUEZ 2022 1 [facility] PSYLLIUM PWDR,ORAL PSYLLIUM PWDR,ORA L Active TAKE 2 TEASPOON SFUL BY MOUTH EVERY DAY FOR CONSTIPA TION FOR CONSTIPA TION Jan 30, 2024 1170 Jan 30, 2025 [id number] Jan 31, 2024 LINO WEINBERG [facility] ORAL ACTIVE 01/30/2025 [id number] JATINDER BENITEZ 2023 1170 [facility] PSYLLIUM PWDR,ORAL PSYLLIUM PWDR,ORA L Disconti nued TAKE 2 TEASPOON SFUL BY MOUTH EVERY DAY FOR CONSTIPA TION FOR CONSTIPA TION Oct 05, 2023 390 Oct 05, 2024 [id number] January 27, 2024 PUMA FAUSTIN [facility] ORAL DISCONT INUED (EDIT) 10/05/2024 [id number] JACOB FAUSTIN 2023 390 [facility] SPIRONOLACT ONE 25MG TAB SPIRONOL ACTONE 25MG TAB Active TAKE ONE-HALF TABLET BY MOUTH EVERY DAY FOR BLOOD PRESSURE FOR BLOOD PRESSURE Jan 30, 2024 45 Jan 30, 2025 [id number] Feb 08, 2024 [facility] ORAL ACTIVE 01/30/2025 [id number] JATINDER BENITEZ 2023 45 [place] [facility] SPIRONOLACT ONE 25MG TAB SPIRONOL ACTONE 25MG TAB Disconti nued TAKE ONE-HALF TABLET BY MOUTH EVERY DAY January 13, 2024 15 January 13, 2025 [id number] D January 16, 2024 Alex [facility]AGON [facility] ORAL DISCONT INUED (EDIT) 01/13/2025 [id number] MONDRAGON,ER ICA C 2023 15 [facility] SPIRONOLACT ONE 25MG TAB SPIRONOL ACTONE 25MG TAB Disconti nued TAKE ONE-HALF TABLET BY MOUTH EVERY DAY Aug 18, 2023 15 Aug 18, 2024 [id number] C Nov 03, 2023 Alex [facility]AGON [facility] ORAL DISCONT INUED 08/18/2024 [id number] KAYCE MONDRAGON ICA C 2022 15 [facility] SPIRONOLACT ONE 25MG TAB SPIRONOL ACTONE 25MG TAB Disconti nued TAKE ONE-HALF TABLET BY MOUTH EVERY DAY May 06, 2023 15 May 06, 2024 [id number] Jul 15, 2023 [facility] ORAL DISCONT INUED 05/06/2024 [id number] JATINDRE BENITEZ 2022 15 [facility] SPIRONOLACT ONE 25MG TAB SPIRONOL ACTONE 25MG TAB Disconti nued TAKE ONE-HALF TABLET BY MOUTH EVERY DAY January 26, 2023 15 January 27, 2024 [id number] Apr 06, 2023 [facility] ORAL DISCONT INUED 01/27/2024 [id number] JATINDER BENITEZ 2022 15 [facility] Allergies, Adverse Reactions, Alerts Combined list of allergies from Department of Defense and Veterans Affairs facilities. It does not include entries that were removed or entered in error. Substance Category Reaction Severity Reaction type Status Date Reported Comments Source TERAZOSIN Propensity to adverse reactions to drug (finding) Nausea active 5 [facility] Immunizations Combined list of available immunizations from the Department of Defense and Veterans Affairs facilities. Immunization Series Date Given Administered By Site Reaction Lot Number CVX Code Drug Vacuum Pan Tender Status Comments Source COVID-19 (Adduplex), MRNA, LNP-S, PF, CORINA-SUCROSE, 30 MCG/0.3 ML (AGES 12+ YEARS) 2023 GONZÁLEZ BERGERON LEFT DELTO ID [id number] 309 complet ed [facility] COVID-19 (Adduplex), MRNA, LNP-S, BIVALENT BOOSTER, PF, 30 MCG/0.3 ML DOSE 1 2022 KATIELISA WATSON L LEFT DELTO ID [id number] 300 complet ed [facility] INFLUENZA VACCINE, QUADRIVALENT, ADJUVANTED 2021 205 complet ed [facility] INFLUENZA, UNSPECIFIED FORMULATION 2021 88 complet ed [facility] COVID-19 (Adduplex), MRNA, LNP-S, PF, 30 MCG/0.3 ML DOSE, CORINA-SUCROSE (AGES 12+ YEARS) 4 2021 217 complet ed PFR; [id number]; 2 [facility] ZOSTER RECOMBINANT 2 2021 187 complet ed [facility] COVID-19 (Adduplex), MRNA, LNP-S, PF, 30 MCG/0.3 ML DOSE 2021 208 complet ed [facility] ZOSTER, UNSPECIFIED FORMULATION 2021 188 complet ed [facility] TDAP 2021 115 complet ed [facility] ZOSTER RECOMBINANT 1 2021 187 complet ed [facility] ZOSTER, UNSPECIFIED FORMULATION 2021 188 complet ed [facility] COVID-19 (Adduplex), MRNA, LNP-S, PF, 30 MCG/0.3 ML DOSE 3 2020 208 complet ed PRF; [id number]; 2 [facility] INFLUENZA, INJECTABLE, QUADRIVALENT, PRESERVATIVE FREE 2020 150 complet ed [facility] COVID-19 (Adduplex), MRNA, LNP-S, PF, 30 MCG/0.3 ML DOSE 2 2020 208 complet ed PFR; [id number]; 1 [facility] COVID-19 (PFIZER), MRNA, LNP-S, PF, 30 MCG/0.3 ML DOSE 1 2020 208 complet ed PFR; [id number]; 1 [facility] INFLUENZA, INJECTABLE, QUADRIVALENT, PRESERVATIVE FREE 2019 150 complet ed [facility] INFLUENZA, SEASONAL, INJECTABLE, PRESERVATIVE FREE 2018 140 complet ed [facility] INFLUENZA, UNSPECIFIED FORMULATION 2018 88 complet ed [facility] PNEUMOCOCCAL POLYSACCHARID E PPV23 2018 33 complet ed [place] and [place],[id number] 20 [facility] INFLUENZA, SEASONAL, INJECTABLE, PRESERVATIVE FREE 2017 140 complet ed [facility] INFLUENZA, HIGH DOSE SEASONAL 2016 135 complet ed [facility] PNEUMOCOCCAL CONJUGATE PCV 13 2016 133 complet ed [place] [id number] EXP: 12/2017 [facility] INFLUENZA, SEASONAL, INJECTABLE, PRESERVATIVE FREE 2014 140 complet ed [facility] PNEUMOCOCCAL POLYSACCHARID E PPV23 2013 33 complet ed 000 [facility] PNEUMOCOCCAL, UNSPECIFIED FORMULATION 2013 109 complet ed [facility] ZOSTER LIVE 2013 121 complet ed 0000 [facility] INFLUENZA, UNSPECIFIED FORMULATION 2010 88 complet ed [facility] TDAP 2010 115 complet ed aaaa [facility] Results Combined list of recent chemistry, hematology and other laboratory results from Department of Defense and Veterans Affairs, ranging from 15 months to all on record, depending upon the facility. Order Name Results Value Reference Range Date Interpretation Specimen Comments Source URINALYS IS COLOR OF URINE COLORLES S 04/21 Specimen Type: URINE No comment entered. Ordering Provider: NANDO HUGGINS MA Report Released Date/Time: Apr 21, 2024 07:37 AM Reporting Lab: [facility] [phone] Performing Lab: [facility] [phone] [facility] URINALYS IS SPECIFIC GRAVITY OF URINE 1.009 1.003 - 1.035 04/21 Specimen Type: URINE No comment entered. Ordering Provider: NANDO HUGGINS MA Report Released Date/Time: Apr 21, 2024 07:37 AM Reporting Lab: [facility] [phone] Performing Lab: [facility] [address] [place] [facility] URINALYS IS BILIRUBIN. TOTAL [PRESENCE] IN URINE BY TEST STRIP NEGATIVE 04/21 Specimen Type: URINE No comment entered. Ordering Provider: NANDO HUGGINS MA Report Released Date/Time: Apr 21, 2024 07:37 AM Reporting Lab: [facility] [phone] Performing Lab: [facility] [phone] [place] [facility] URINALYS IS KETONES [MASS/VOLU ME] IN URINE BY TEST STRIP NEGATIVE 04/21 Specimen Type: URINE No comment entered. Ordering Provider: NANDO HUGGINS MA Report Released Date/Time: Apr 21, 2024 07:37 AM Reporting Lab: [facility] [phone] Performing Lab: [facility] [address] [place] [facility] URINALYS IS GLUCOSE [MASS/VOLU ME] IN URINE BY TEST STRIP >1000mg/ dL 04/21 Specimen Type: URINE No comment entered. Ordering Provider: NANDO HUGGINS MA Report Released Date/Time: Apr 21, 2024 07:37 AM Reporting Lab: [facility] [phone] Performing Lab: [facility] [address] [place] [facility] URINALYS IS PROTEIN [MASS/VOLU ME] IN URINE BY TEST STRIP NEGATIVE mg/dL 04/21 Specimen Type: URINE No comment entered. Ordering Provider: NANDO HUGGINS MA Report Released Date/Time: Apr 21, 2024 07:37 AM Reporting Lab: [facility] [phone] Performing Lab: [facility] [address] [place] [facility] URINALYS IS PH OF URINE BY TEST STRIP 5.5 5.0 - 8.0 04/21 Specimen Type: URINE No comment entered. Ordering Provider: NANDO HUGGINS MA Report Released Date/Time: Apr 21, 2024 07:37 AM Reporting Lab: [facility] [phone] Performing Lab: [facility] [address] [place] [facility] URINALYS IS LEUKOCYTES [#/AREA] IN URINE SEDIMENT BY MICROSCOPY HIGH POWER FIELD 1 /[HPF] 0 - 7 04/21 Specimen Type: URINE No comment entered. Ordering Provider: NANDO HUGGINS MA Report Released Date/Time: Apr 21, 2024 07:37 AM Reporting Lab: [facility] [phone] Performing Lab: [facility] [address] [place] [facility] URINALYS IS BACTERIA [PRESENCE] IN URINE SEDIMENT BY LIGHT MICROSCOPY NONE SEEN 04/21 Specimen Type: URINE No comment entered. Ordering Provider: NANDO HUGGINS MA Report Released Date/Time: Apr 21, 2024 07:37 AM Reporting Lab: [facility] [address] Performing Lab: [facility] [address] [place] [facility] URINALYS IS ERYTHROCYT ES [#/AREA] IN URINE SEDIMENT BY MICROSCOPY HIGH POWER FIELD NONE SEEN/[HP F] 0 - 3 04/21 Specimen Type: URINE No comment entered. Ordering Provider: NANDO HUGGINS MA Report Released Date/Time: Apr 21, 2024 07:37 AM Reporting Lab: [facility] [address] Performing Lab: [facility] [address] [place] [facility] URINALYS IS APPEARANCE OF URINE CLEAR 04/21 Specimen Type: URINE No comment entered. Ordering Provider: NANDO HUGGINS MA Report Released Date/Time: Apr 21, 2024 07:37 AM Reporting Lab: [facility] [address] Performing Lab: [facility] [address] [place] [facility] URINALYS IS EPITHELIAL CELLS.SQUA MOUS [#/AREA] IN URINE SEDIMENT BY MICROSCOPY HIGH POWER FIELD NONE SEEN/[HP F] 04/21 Specimen Type: URINE No comment entered. Ordering Provider: NANDO HUGGINS MA Report Released Date/Time: Apr 21, 2024 07:37 AM Reporting Lab: [facility] [address] Performing Lab: [place] [id number] [place] [facility] URINALYS IS HEMOGLOBIN [PRESENCE] IN URINE BY TEST STRIP NEGATIVE 04/21 Specimen Type: URINE No comment entered. Ordering Provider: NANDO HUGGINS MA Report Released Date/Time: Apr 21, 2024 07:37 AM Reporting Lab: [facility] [address] Performing Lab: [facility] [address] [place] [facility] URINALYS IS NITRITE [PRESENCE] IN URINE BY TEST STRIP NEGATIVE 04/21 Specimen Type: URINE No comment entered. Ordering Provider: NANDO HUGGINS MA Report Released Date/Time: Apr 21, 2024 07:37 AM Reporting Lab: [facility] [phone] Performing Lab: [facility] [address] [place] [facility] URINALYS IS LEUKOCYTE ESTERASE [PRESENCE] IN URINE BY TEST STRIP NEGATIVE 04/21 Specimen Type: URINE No comment entered. Ordering Provider: NANDO HUGGINS MA Report Released Date/Time: Apr 21, 2024 07:37 AM Reporting Lab: [facility] [address] Performing Lab: [facility] [address] [place] [facility] CBC LEUKOCYTES [#/VOLUME] IN BLOOD BY AUTOMATED COUNT 9.88 10*3/uL 4.0 - 11.0 05/06 Specimen Type: BLOOD No comment entered. Ordering Provider: Carol BENITEZ Report Released Date/Time: Oct 25, 2022 09:27 AM Reporting Lab: [facility] [address] Performing Lab: [place] [address] [place] [facility] CBC ERYTHROCYT ES [#/VOLUME] IN BLOOD BY AUTOMATED COUNT 5.05 10*6/uL 4.6 - 6.2 05/06 Specimen Type: BLOOD No comment entered. Ordering Provider: Carol BENITEZ Report Released Date/Time: Oct 25, 2022 09:27 AM Reporting Lab: [facility] [address] Performing Lab: [facility] [address] [place] [facility] CBC HEMOGLOBIN [MASS/VOLU ME] IN BLOOD 16.5 g/dL 13.5 - 17.9 05/06 Specimen Type: BLOOD No comment entered. Ordering Provider: Carol BENITEZ Report Released Date/Time: Oct 25, 2022 09:27 AM Reporting Lab: [facility] [address] Performing Lab: [facility] [address] [place] [facility] CBC HEMATOCRIT [VOLUME FRACTION] OF BLOOD BY AUTOMATED COUNT 48.0 41 - 54 05/06 Specimen Type: BLOOD No comment entered. Ordering Provider: Carol BENITEZ Report Released Date/Time: Oct 25, 2022 09:27 AM Reporting Lab: [facility] [id number] Performing Lab: [facility] [phone] [place] [facility] CBC MCV [ENTITIC VOLUME] BY AUTOMATED COUNT 95.0 fL 80 - 100 05/06 Specimen Type: BLOOD No comment entered. Ordering Provider: Carol BENITEZ Report Released Date/Time: Oct 25, 2022 09:27 AM Reporting Lab: [facility] [id number] Performing Lab: [facility] [id number] [place] [facility] CBC MCH [ENTITIC MASS] BY AUTOMATED COUNT 32.7 pg 27 - 33 05/06 Specimen Type: BLOOD No comment entered. Ordering Provider: Carol BENITEZ Report Released Date/Time: Oct 25, 2022 09:27 AM Reporting Lab: [facility] [address] Performing Lab: [facility] [address] [place] [facility] CBC MCHC [MASS/VOLU ME] BY AUTOMATED COUNT 34.4 g/dL 32.0 - 37.5 05/06 Specimen Type: BLOOD No comment entered. Ordering Provider: Carol BENITEZ Report Released Date/Time: Oct 25, 2022 09:27 AM Reporting Lab: [facility] [address] Performing Lab: [facility] [address] [place] [facility] CBC PLATELETS [#/VOLUME] IN BLOOD BY AUTOMATED COUNT 187 10*3/uL 150 - 400 05/06 Specimen Type: BLOOD No comment entered. Ordering Provider: Carol BENITEZ Report Released Date/Time: Oct 25, 2022 09:27 AM Reporting Lab: [facility] [address] Performing Lab: [facility] [address] [place] [facility] CBC PLATELET MEAN VOLUME [ENTITIC VOLUME] IN BLOOD BY AUTOMATED COUNT 11.2 fL 7.4 - 10.4 05/06 H Specimen Type: BLOOD No comment entered. Ordering Provider: Carol BENITEZ Report Released Date/Time: Oct 25, 2022 09:27 AM Reporting Lab: [facility] [address] Performing Lab: [facility] [address] [place] [facility] CBC ERYTHROCYT E DISTRIBUTI ON WIDTH [RATIO] BY AUTOMATED COUNT 14.6 11.5 - 14.5 05/06 H Specimen Type: BLOOD No comment entered. Ordering Provider: Carol BENITEZ Report Released Date/Time: Oct 25, 2022 09:27 AM Reporting Lab: [facility] [address] Performing Lab: [facility] [address] [place] [facility] LIPID PANEL,NO N-FASTIN G CHOLESTERO L [MASS/VOLU ME] IN SERUM OR PLASMA 131 mg/dL <199 - 199 05/06 Specimen Type: PLASMA No comment entered. Ordering Provider: Carol BENITEZ Report Released Date/Time: Oct 25, 2022 09:27 AM Reporting Lab: [facility] [address] Performing Lab: [facility] [address] [place] [facility] LIPID PANEL,NO N-FASTIN G CHOLESTERO L IN HDL [MASS/VOLU ME] IN SERUM OR PLASMA 35 mg/dL 40 05/06 L Specimen Type: PLASMA No comment entered. Ordering Provider: Carol BENITEZ Report Released Date/Time: Oct 25, 2022 09:27 AM Reporting Lab: [facility] [address] Performing Lab: [facility] [address] [place] [facility] LIPID PANEL,NO N-FASTIN G CHOLESTERO L IN LDL [MASS/VOLU ME] IN SERUM OR PLASMA BY CALCULATIO N 62 mg/dL <99 - 99 05/06 Specimen Type: PLASMA No comment entered. Ordering Provider: Carol BENITEZ Report Released Date/Time: Oct 25, 2022 09:27 AM Reporting Lab: [facility] [address] Performing Lab: [facility] [address] [place] [facility] LIPID PANEL,NO N-FASTIN G CHOLESTERO L IN VLDL [MASS/VOLU ME] IN SERUM OR PLASMA BY CALCULATIO N 34 mg/dL <29 - 29 05/06 H Specimen Type: PLASMA No comment entered. Ordering Provider: Carol BENITEZ Report Released Date/Time: Oct 25, 2022 09:27 AM Reporting Lab: [facility] [address] Performing Lab: [facility] [address] [place] [facility] LIPID PANEL,NO N-FASTIN G CHOLESTERO L NON HDL [MASS/VOLU ME] IN SERUM OR PLASMA 96 mg/dL <129 - 129 05/06 Specimen Type: PLASMA No comment entered. Ordering Provider: Carol BENITEZ Report Released Date/Time: Oct 25, 2022 09:27 AM Reporting Lab: [facility] [address] Performing Lab: [facility] [address] [place] [facility] LIPID PANEL,NO N-FASTIN G TRIGLYCERI DE [MASS/VOLU ME] IN SERUM OR PLASMA 171 mg/dL <149 - 149 05/06 H Specimen Type: PLASMA No comment entered. Ordering Provider: Carol BENITEZ Report Released Date/Time: Oct 25, 2022 09:27 AM Reporting Lab: [facility] [address] Performing Lab: [facility] [address] [place] [facility] BASIC METABOLI C PANEL+MG CREATININE [MASS/VOLU ME] IN SERUM OR PLASMA 1.1 mg/dL 0.7 - 1.2 05/06 Specimen Type: PLASMA No comment entered. Ordering Provider: Carol BENITEZ Report Released Date/Time: Oct 25, 2022 09:27 AM Reporting Lab: [facility] [address] Performing Lab: [facility] [address] [place] [facility] BASIC METABOLI C PANEL+MG UREA NITROGEN [MASS/VOLU ME] IN SERUM OR PLASMA 21 mg/dL 8 - 26 05/06 Specimen Type: PLASMA No comment entered. Ordering Provider: Carol BENITEZ Report Released Date/Time: Oct 25, 2022 09:27 AM Reporting Lab: [facility] [address] Performing Lab: [facility] [address] [place] [facility] BASIC METABOLI C PANEL+MG GLUCOSE [MASS/VOLU ME] IN SERUM OR PLASMA 189 mg/dL 70 - 100 05/06 H Specimen Type: PLASMA No comment entered. Ordering Provider: Carol BENITEZ Report Released Date/Time: Oct 25, 2022 09:27 AM Reporting Lab: [facility] [address] Performing Lab: [facility] [address] [place] [facility] BASIC METABOLI C PANEL+MG SODIUM [MOLES/VOL UME] IN SERUM OR PLASMA 137 mmol/L 136 - 145 05/06 Specimen Type: PLASMA No comment entered. Ordering Provider: Carol BENITEZ Report Released Date/Time: Oct 25, 2022 09:27 AM Reporting Lab: [facility] [address] Performing Lab: [facility] [address] [place] [facility] BASIC METABOLI C PANEL+MG POTASSIUM [MOLES/VOL UME] IN SERUM OR PLASMA 3.9 mmol/L 3.5 - 5.1 05/06 Specimen Type: PLASMA No comment entered. Ordering Provider: Carol BENITEZ Report Released Date/Time: Oct 25, 2022 09:27 AM Reporting Lab: [facility] [address] Performing Lab: [facility] [address] [place] [facility] BASIC METABOLI C PANEL+MG CHLORIDE [MOLES/VOL UME] IN SERUM OR PLASMA 103 mmol/L 98 - 107 05/06 Specimen Type: PLASMA No comment entered. Ordering Provider: Carol BENITEZ Report Released Date/Time: Oct 25, 2022 09:27 AM Reporting Lab: [facility] [address] Performing Lab: [facility] [address] [place] [facility] BASIC METABOLI C PANEL+MG CARBON DIOXIDE, TOTAL [MOLES/VOL UME] IN SERUM OR PLASMA 24 mmol/L 22 - 29 05/06 Specimen Type: PLASMA No comment entered. Ordering Provider: Carol BENITEZ Report Released Date/Time: Oct 25, 2022 09:27 AM Reporting Lab: [facility] [address] Performing Lab: [facility] [address] [place] [facility] BASIC METABOLI C PANEL+MG CALCIUM [MASS/VOLU ME] IN SERUM OR PLASMA 9.6 mg/dL 8.4 - 10.2 05/06 Specimen Type: PLASMA No comment entered. Ordering Provider: Carol BENITEZ Report Released Date/Time: Oct 25, 2022 09:27 AM Reporting Lab: [facility] [address] Performing Lab: [facility] [address] [place] [facility] BASIC METABOLI C PANEL+MG MAGNESIUM [MASS/VOLU ME] IN SERUM OR PLASMA 2.1 mg/dL 1.6 - 2.6 05/06 Specimen Type: PLASMA No comment entered. Ordering Provider: Carol BENITEZ Report Released Date/Time: Oct 25, 2022 09:27 AM Reporting Lab: [facility] [address] Performing Lab: [facility] [address] [place] [facility] BASIC METABOLI C PANEL+MG ANION GAP IN SERUM OR PLASMA 10 mmol/L 5 - 15 05/06 Specimen Type: PLASMA No comment entered. Ordering Provider: Carol BENITEZ Report Released Date/Time: Oct 25, 2022 09:27 AM Reporting Lab: [facility] [address] Performing Lab: [facility] [address] [place] [facility] BASIC METABOLI C PANEL+MG GLOMERULAR FILTRATION RATE/1.73 SQ M.PREDICTE D [VOLUME RATE/AREA] IN SERUM, PLASMA OR BLOOD BY CREATININE -BASED FORMULA (CKD-EPI 2020) 72 60 05/06 Specimen Type: PLASMA No comment entered. Ordering Provider: Carol BENITEZ Report Released Date/Time: Oct 25, 2022 09:27 AM Reporting Lab: [facility] [address] Performing Lab: [facility] [address] [place] [facility] URINALYS IS COLOR OF URINE LIGHT-YE LLOW 09/01 Specimen Type: URINE No comment entered. Ordering Provider: Preethi ALVES Report Released Date/Time: Sep 01, 2022 11:34 AM Reporting Lab: [facility] [address] Performing Lab: [facility] [address] [place] [facility] URINALYS IS SPECIFIC GRAVITY OF URINE 1.028 1.003 - 1.035 09/01 Specimen Type: URINE No comment entered. Ordering Provider: Preethi ALVES Report Released Date/Time: Sep 01, 2022 11:34 AM Reporting Lab: [facility] [address] Performing Lab: [facility] [address] [place] [facility] URINALYS IS BILIRUBIN. TOTAL [PRESENCE] IN URINE BY TEST STRIP NEGATIVE 09/01 Specimen Type: URINE No comment entered. Ordering Provider: Preethi ALVES Report Released Date/Time: Sep 01, 2022 11:34 AM Reporting Lab: [facility] [address] Performing Lab: [facility] [address] [place] [facility] URINALYS IS KETONES [MASS/VOLU ME] IN URINE BY TEST STRIP NEGATIVE 09/01 Specimen Type: URINE No comment entered. Ordering Provider: Preethi ALVES Report Released Date/Time: Sep 01, 2022 11:34 AM Reporting Lab: [facility] [address] Performing Lab: [facility] [address] [place] [facility] URINALYS IS GLUCOSE [MASS/VOLU ME] IN URINE BY TEST STRIP >1000mg/ dL <30 - 30 09/01 Specimen Type: URINE No comment entered. Ordering Provider: Preethi ALVES Report Released Date/Time: Sep 01, 2022 11:34 AM Reporting Lab: [facility] [address] Performing Lab: [facility] [address] [place] [facility] URINALYS IS PROTEIN [MASS/VOLU ME] IN URINE BY TEST STRIP NEGATIVE mg/dL <20 - 20 09/01 Specimen Type: URINE No comment entered. Ordering Provider: Preethi ALVES Report Released Date/Time: Sep 01, 2022 11:34 AM Reporting Lab: [facility] [address] Performing Lab: [facility] [address] [place] [facility] URINALYS IS PH OF URINE BY TEST STRIP 5.0 5.0 - 8.0 09/01 Specimen Type: URINE No comment entered. Ordering Provider: Preethi ALVES Report Released Date/Time: Sep 01, 2022 11:34 AM Reporting Lab: [facility] [address] Performing Lab: [facility] [address] [place] [facility] URINALYS IS LEUKOCYTES [#/AREA] IN URINE SEDIMENT BY MICROSCOPY HIGH POWER FIELD 2 /[HPF] 0 - 7 09/01 Specimen Type: URINE No comment entered. Ordering Provider: Preethi ALVES Report Released Date/Time: Sep 01, 2022 11:34 AM Reporting Lab: [facility] [address] Performing Lab: [facility] [address] [place] [facility] URINALYS IS BACTERIA [PRESENCE] IN URINE SEDIMENT BY LIGHT MICROSCOPY NONE SEEN 09/01 Specimen Type: URINE No comment entered. Ordering Provider: Preethi ALVES Report Released Date/Time: Sep 01, 2022 11:34 AM Reporting Lab: [facility] [address] Performing Lab: [facility] [address] [place] [facility] URINALYS IS ERYTHROCYT ES [#/AREA] IN URINE SEDIMENT BY MICROSCOPY HIGH POWER FIELD <1/[HPF] 0 - 3 09/01 Specimen Type: URINE No comment entered. Ordering Provider: Preethi ALVES Report Released Date/Time: Sep 01, 2022 11:34 AM Reporting Lab: [facility] [address] Performing Lab: [facility] [address] [place] [facility] URINALYS IS APPEARANCE OF URINE CLEAR 09/01 Specimen Type: URINE No comment entered. Ordering Provider: Preethi ALVES Report Released Date/Time: Sep 01, 2022 11:34 AM Reporting Lab: [facility] [address] Performing Lab: [facility] [address] [place] [facility] URINALYS IS EPITHELIAL CELLS.SQUA MOUS [#/AREA] IN URINE SEDIMENT BY MICROSCOPY HIGH POWER FIELD <1/[HPF] 09/01 Specimen Type: URINE No comment entered. Ordering Provider: Preethi ALVES Report Released Date/Time: Sep 01, 2022 11:34 AM Reporting Lab: [facility] [address] Performing Lab: [facility] [address] [place] [facility] URINALYS IS HEMOGLOBIN [PRESENCE] IN URINE BY TEST STRIP NEGATIVE 09/01 Specimen Type: URINE No comment entered. Ordering Provider: Preethi ALVES Report Released Date/Time: Sep 01, 2022 11:34 AM Reporting Lab: [facility] [address] Performing Lab: [place] [address] [place] [facility] URINALYS IS NITRITE [PRESENCE] IN URINE BY TEST STRIP NEGATIVE 09/01 Specimen Type: URINE No comment entered. Ordering Provider: Preethi ALVES Report Released Date/Time: Sep 01, 2022 11:34 AM Reporting Lab: [facility] [address] Performing Lab: [facility] [address] [place] [facility] URINALYS IS LEUKOCYTE ESTERASE [PRESENCE] IN URINE BY TEST STRIP NEGATIVE 09/01 Specimen Type: URINE No comment entered. Ordering Provider: Preethi ALVES Report Released Date/Time: Sep 01, 2022 11:34 AM Reporting Lab: [facility] [address] Performing Lab: [facility] [address] [place] [facility] POC ABG/LACT ATE PH OF VENOUS BLOOD 7.398 7.31 - 7.41 09/01 Specimen Type: VENOUS BLOOD No comment entered. Ordering Provider: Preethi ALVES Report Released Date/Time: Sep 01, 2022 12:07 PM Reporting Lab: [facility] [address] Performing Lab: [facility] [address] [place] [facility] POC ABG/LACT ATE CARBON DIOXIDE [PARTIAL PRESSURE] IN VENOUS BLOOD 34.3 mm[Hg] 41.00 - 51.00 09/01 L Specimen Type: VENOUS BLOOD No comment entered. Ordering Provider: Preethi ALVES Report Released Date/Time: Sep 01, 2022 12:07 PM Reporting Lab: [facility] [address] Performing Lab: [facility] [address] [place] [facility] POC ABG/LACT ATE OXYGEN [PARTIAL PRESSURE] IN VENOUS BLOOD 46 mm[Hg] 35.0 - 40.0 09/01 H Specimen Type: VENOUS BLOOD No comment entered. Ordering Provider: Preethi ALVES Report Released Date/Time: Sep 01, 2022 12:07 PM Reporting Lab: [facility] [address] Performing Lab: [facility] [address] [place] [facility] POC ABG/LACT ATE CARBON DIOXIDE, TOTAL [MOLES/VOL UME] IN VENOUS BLOOD 22 mmol/L 24.0 - 29.0 09/01 L Specimen Type: VENOUS BLOOD No comment entered. Ordering Provider: Preethi ALVES Report Released Date/Time: Sep 01, 2022 12:07 PM Reporting Lab: [facility] [address] Performing Lab: [facility] [address] [place] [facility] POC ABG/LACT ATE BICARBONAT E [MOLES/VOL UME] IN VENOUS BLOOD 21.1 mmol/L 23.0 - 28.0 09/01 L Specimen Type: VENOUS BLOOD No comment entered. Ordering Provider: Preethi ALVES Report Released Date/Time: Sep 01, 2022 12:07 PM Reporting Lab: [facility] [address] Performing Lab: [facility] [address] [place] [facility] POC ABG/LACT ATE BASE EXCESS IN VENOUS BLOOD BY CALCULATIO N -4 mmol/L - 2 09/01 L Specimen Type: VENOUS BLOOD No comment entered. Ordering Provider: Preethi ALVES Report Released Date/Time: Sep 01, 2022 12:07 PM Reporting Lab: [facility] [address] Performing Lab: [facility] [address] [place] [facility] POC ABG/LACT ATE FRACTIONAL OXYHEMOGLO BIN IN VENOUS BLOOD 82 70 - 75 09/01 H Specimen Type: VENOUS BLOOD No comment entered. Ordering Provider: Preethi ALVES Report Released Date/Time: Sep 01, 2022 12:07 PM Reporting Lab: [facility] [address] Performing Lab: [facility] [address] [place] [facility] POC ABG/LACT ATE LACTATE [MOLES/VOL UME] IN VENOUS BLOOD 2.14 mmol/L 0.90 - 1.70 09/01 Specimen Type: VENOUS BLOOD No comment entered. Ordering Provider: Preethi ALVES Report Released Date/Time: Sep 01, 2022 12:07 PM Reporting Lab: [facility] [address] Performing Lab: [facility] [address] [place] [facility] C-REACTI VE PROTEIN C REACTIVE PROTEIN [MASS/VOLU ME] IN SERUM OR PLASMA BY HIGH SENSITIVIT Y METHOD 2.66 mg/L <5.00 - 5.00 09/01 Specimen Type: SERUM No comment entered. Ordering Provider: Preethi ALVES Report Released Date/Time: Sep 01, 2022 11:34 AM Reporting Lab: [facility] [address] Performing Lab: [facility] [address] [place] [facility] SED RATE ERYTHROCYT E SEDIMENTAT ION RATE 20 mm/h 5 - 15 09/01 H Specimen Type: BLOOD No comment entered. Ordering Provider: Preethi ALVES Report Released Date/Time: Sep 01, 2022 11:34 AM Reporting Lab: [facility] [address] Performing Lab: [facility] [address] [place] [facility] LIPASE LIPASE [ENZYMATIC ACTIVITY/V OLUME] IN SERUM OR PLASMA 40 U/L <60 - 60 09/01 Specimen Type: PLASMA No comment entered. Ordering Provider: Preethi ALVES Report Released Date/Time: Sep 01, 2022 11:34 AM Reporting Lab: [facility] [address] Performing Lab: [facility] [address] [place] [facility] EXTRA BLUE TUBE EXTRA BLUE TUBE RECEIVED 09/01 Specimen Type: PLASMA No comment entered. Ordering Provider: MD NIDA Report Released Date/Time: Sep 01, 2022 11:42 AM Reporting Lab: [facility] [address] Performing Lab: [facility] [address] [place] [facility] Vital Signs Combined list of inpatient and outpatient Vital Signs from Department of Defense and Veterans Affairs, ranging from 12 months to all on record, depending upon the facility. Vital Sign Value Date Comments Source Encounters Combined list of: 1) Encounters from Department of Veterans Affairs facilities going back up to thelast 18 months. 2) Encounters from the Department of Defense facilities going back up to 280 months. 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
ALBINA MITCHELL A 10/27 [facility] IS [facility] OFFICE O/P NEW LOW 30-44 MIN [id number] Diagnos is: ICD-10- CM H60.513 Acute actinic otitis externa , bilater al
JUANCARLOS WEBER 11/10 [facility] IS [facility] Outpatient Encounter [id number] 11/12 [facility] Outpatient Encounter [id number] JATINDER BENITEZ 11/15 [facility] OFFICE O/P EST MOD 30-39 MIN [id number] Diagnos is: ICD-10- CM H60.513 Acute actinic otitis externa , bilater al
JUANCARLOS WEBER ILIR 11/22 [place] 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<b r/> JATINDER BENITEZ 05/06 [facility] [place] [facility] Outpatient Encounter [id number] 05/14 [place] [facility] [place] [facility] Outpatient Encounter [id number] 06/30 [facility] BREATHING CAPACITY TEST [id number] Diagnos is: ICD-10- CM Z72.0 Tobacco use<br/ > PRANEETH FIERRO 06/30 [facility] [place] [facility] Outpatient Encounter [id number] 08/12 [place] [facility] [place] [facility] Outpatient Encounter [id number] 08/15 [place] [facility] [place] [facility] Outpatient Encounter [id number] 09/19 [facility] [place] [facility] Outpatient Encounter [id number] 09/20 [facility] MOD SED SAME PHYS/QHP 5/>YRS [id number] Diagnos is: ICD-10- CM K63.89 Other specifi ed disease s of intesti ne
KASEY ZAIDI 09/21 [facility] Outpatient Encounter [id number] 09/21 [facility] Outpatient Encounter [id number] EMRE TAM 09/26 [facility] OFFICE O/P NEW MOD 45 MIN [id number] Diagnos is: ICD-10- CM K59.00 Constip ation, unspeci fied
TANK PUGH W 10/05 [facility] [place] [id number] Diagnos is: ICD-10- CM Z01.118 Encntr for exam of ears and hearing w oth abnorma l finding s
CAROLYN NIELSON 11/28 [facility] Outpatient Encounter [id number] JATINDER BENITEZ 12/14 [facility] CONFORMITY EVALUATION [id number] Diagnos is: ICD-10- CM H90.3 Sensori neural hearing loss, bilater al
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
KRISTY,CAMMY AN A 04/21 [facility] Outpatient Encounter [id number] MARIS ARAMBULA RA 04/23 [facility] Social History Combined list of available smoking, tobacco, and other social history from [employer] and [facility] Affairs facilities. Social History Type Response Date Comment Sourc e Tobacco smoking status MDIS 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 05/06/2023 [facility] History of tobacco use MO-TOBACCO QUIT 1 5 YRS OR MORE 05/06/2023 [facility] History of tobacco use 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 06/04/2022 [facility] History of tobacco use MO-TOBACCO QUIT 5 TO < 15 YRS 07/10/2021 [facility] History of tobacco use MO-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 05/23/2020 [facility] History of tobacco use MO-TOBACCO QUIT 5 TO < 15 YRS 03/20/2019 [facility] History of tobacco use FORMER TOBACCO US ER 7Y OR GREATER 03/21/2018 [facility] History of tobacco use FORMER TOBACCO US ER 7Y OR GREATER 02/24/2017 [facility] History of tobacco use FORMER TOBACCO US E >1Y <7Y 01/07/2016 [facility] History of tobacco use FORMER TOBACCO USE <1Y 02/03/2015 [facility] History of tobacco use CURRENT TOBACCO USER 02/26/2014 [facility] History of tobacco use CURRENT TOBACCO USER 05/13/2011 [facility] Plan of Care List of future care activities from [facility] facilities. Additional future care activities may be listed in the Assessment and Plan section. Date/Time Care Activity Care Activity Detail Facili ty 04/27/2024 AMBULATORY - NONE AMBULATORY - NONE CARLOS COLUNGA [facility] 04/27/2024 Imaging - Ultrasound Order US AORTA (P) M AMILCAR [facility] Advance Directives List of completed, amended, or rescinded Advance Directives on record at [facility] facilities. An actual copy of the Directive is not included. Date Advance Directive Provider Source 03/23/2016 CLINICAL WARNING TIM TER[facility]
--- OUTSIDE RECORDS SUMMARY | 2024-04-23 07:09 | XMS_ITS | Encounter Summary ---
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 Date/Time Encounter Type Encounter Description Reason Pro vider Source Oct 05, 2023 02:00 PM OFFICE O/P NEW MOD 45 MIN GASTROENTEROLOGY ICD-10-CM K59.00 Constipation, unspecified DIONNE PUGH [facility] Encounter Template Text not used by [place] Assessments - Encounter Diagnoses This section includes the primary and secondary diagnoses documented for the Encounter. Date/Time Primary/Secondary Diagnosis Diagnosis Name Provider Source Oct 05, 2023 03:32 PM PRIMARY Constipation, unspecified ROXIE,MAYA [facility] Plan of Treatment: Future Appointments (+ 6 months) and Future Tests (+/- 45 days) The Plan of Treatment section includes future care activities for the [facility] [place] [facility] This section includes future appointments and future orders which are active, pending or scheduled. Future Appointments This section includes appointments that were scheduled to occur 6 months from the date of the Encounter, up to a maximum of 20 appointments. The data comes from all [place] treatment facilities. Appointment Date/Time Appointment Type Appointme nt Facility Name Nov 29, 2023 07:45 AM AMBULATORY - SURGERY CARLOS JULESS [facility] December 29, 2023 08:45 AM AMBULATORY - SURGERY CARLOS BRENNANLIS [facility] January 24, 2024 07:00 AM AMBULATORY - NONE RIMMA VARGHESE [facility] Jan 30, 2024 09:30 AM AMBULATORY - MEDICINE WILFREDO KHANNA [facility] Vital Signs: All taken on the encounter date This section contains inpatient and outpatient Vital Signs collected on the date of the Encounter. Date/Time Temperature Pulse Blood Pressure Respiratory Rate SP02 Pain Height Weight Body Mass Index Source Oct 05, 2023 01:39 PM 97.6 56 149/66 18 97 0 71 225 31 [facility] Social History: Smoking Status (Most current) and Tobacco Use (All prior to encounter date) This section includes the most current, and the historical, smoking and tobacco- related health factors from the [place] facility where the Encounter took place. Current Smoking Status This section includes the most current smoking, or tobacco-related health factor, from the [place] facility where the Encounter took place. Date/Time Current Smoking Status Comment Facil ity May 06, 2023 11:30 AM 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 [facility] Tobacco Use History This section includes a history of the smoking, or tobacco-related health factors, that were collected on or before the date of the Encounter. The data comes from the [place] facility where the Encounter took place. Date/Time Smoking Status/Tobacco Use Comment F acility May 06, 2023 11:30 AM VA-TOBACCO QUIT 15 YRS OR MORE [facility] Jun 04, 2022 09:00 AM 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 [facility] Jun 04, 2022 09:00 AM VA-TOBACCO QUIT 15 YRS OR MORE [facility] Jul 10, 2021 08:00 AM 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 [facility] Jul 10, 2021 08:00 AM VA-TOBACCO QUIT 5 TO < 15 YRS [facility] May 23, 2020 08:30 AM 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 [facility] May 23, 2020 08:30 AM VA-TOBACCO QUIT 5 TO < 15 YRS [facility] Mar 20, 2019 04:03 PM 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 [facility] Mar 20, 2019 04:03 PM [place] QU[place] 5 TO < 15 YRS [facility] Mar 21, 2018 08:13 AM FORMER TOBACCO USER 7Y OR GREATE R [facility] Feb 24, 2017 09:24 AM FORMER TOBACCO USER 7Y OR GREATE R [facility] January 07, 2016 08:01 AM FORMER TOBACCO USE >1Y <7Y [facility] Feb 03, 2015 07:58 AM FORMER TOBACCO USE <1Y [facility] Feb 26, 2014 08:41 AM CURRENT TOBACCO USER [facility] May 13, 2011 01:45 PM CURRENT TOBACCO USER [facility] Advance Directives: All historical and current Section Date Range: From patient's date of to the date document was created. This section includes ALL of a patient's completed or amended [place] Advance and Rescinded Directives. The entries below indicate that a directive exists for the patient, but an actual copy is not included with this document. The data comes from all [place] facilities. Date Advance Directives Provider Source Mar 23, 2016 CLINICAL WARNING TIM TERAN [facility] Pathology Reports: +/- 30 days of the encounter Pathology Reports For cases when an order for pathology services may have been completed prior to the date of the Encounter, the report list includes the Pathology Reports that were completed up to 30 days before dateof the Encounter. For cases when an order for pathology services may have been completed after the date of the Encounter, the report list also includes the Pathology Reports that were completed up to30 days after date of the Encounter. The data comes from all [place] treatment facilities. Date/Time Pathology Report Provider Source Sep 26, 2023 03:19 PM LR SURGICAL PATHOL OGY REPORT: LOCAL TITLE: LR SURGICAL PATHOLOGY REPORT STANDARD TITLE: PATHOLOGY REPORT DATE OF NOTE: SEP 26, 2023@15:19:48 ENTRY DATE: SEP 26, 2023@15:19:48 AUTHOR: ZAC TAM EXP COSIGNER: URGENCY: STATUS: COMPLETED $APHDR Reporting Lab: [facility] [CLIA# [id number]] [facility] [place] [address] - - - - - - - - - - - - - - - - - - - - - - - - - - - - - - - - - - - - - - - - MEDICAL RECORD SURGICAL PATHOLOGY - - - - - - - - - - - - - - - - - - - - - - - - - - - - - - - - - - - - - - - - PATHOLOGY REPORT Accession No. [id number] - - - - - - - - - - - - - - - - - - - - - - - - - - - - - - - - - - - - - - - - $TEXT Submitted by: SADIA ZAIDI Date obtained: Sep 21, 2023 - - - - - - - - - - - - - - - - - - - - - - - - - - - - - - - - - - - - - - - - Specimen (Received Sep 21, 2023 10:16): 1. BIOPSY ILEUM TERMINAL ILEUM 2. POLYPECTOMY COLON CECUM - - - - - - - - - - - - - - - - - - - - - - - - - - - - - - - - - - - - - - - - BRIEF CLINICAL HISTORY: Polyp Procedure: Colonoscopy - - - - - - - - - - - - - - - - - - - - - - - - - - - - - - - - - - - - - - - - PREOPERATIVE DIAGNOSIS: 1. R/O Crohn's 2. R/O adenoma - - - - - - - - - - - - - - - - - - - - - - - - - - - - - - - - - - - - - - - - OPERATIVE FINDINGS: - - - - - - - - - - - - - - - - - - - - - - - - - - - - - - - - - - - - - - - - POSTOPERATIVE DIAGNOSIS: Surgeon/physician: SADIA ZAIDI MD =-=-=-=-=-=-=-=-=-=-=-=-=- =-=-=-=-=-=-=-=-=-=-=-=-=- =-=-=-=-=-=-=-=-=-=-=-=-=- = - - - - - - - - - - - - - - - - - - - - - - - - - - - - - - - - - - - - - - - - PATHOLOGY REPORT Accession No. [id number] - - - - - - - - - - - - - - - - - - - - - - - - - - - - - - - - - - - - - - - - GROSS DESCRIPTION: The requisition form and specimen identification is confirmed. SPEC. 1 is labeled terminal ileum and consists of two christianson tissue fragments measuring 0.5 and 0.6 cm in greatest dimension. ce SPEC. 2 is labeled colon-cecum and consists of a christianson tissue fragment measuring 0.5 X 0.4 X 0.2 cm. ce (D) SMcCoy/er MICROSCOPIC DESCRIPTION: SPECS. 1, 2. Microscopic examination performed. Deeper levels were obtained on Spec. 1. RS. DIAGNOSES: SPEC. 1 Ileum/terminal ileum, biopsy-- - No diagnostic alterations - No evidence of acute ileitis SPEC. 2 Colon, cecal polyp, polypectomy-- - Tubular adenoma - No evidence of high-grade dysplasia or malignancy /alexi/ ZAC TAM STAFF PATHOLOGIST, PATHOLOGY & LABORATORY MED [facility] Signed Sep 26, 2023@15:19 Performing Laboratory: Surgical Pathology Report Performed By: [facility] [CLIA# [id number]] [place] [address] $FTR - - - - - - - - - - - - - - - - - - - - - - - - - - - - - - - - - - - - - - - - (End of report) ZAC TAM MD rks Date Sep 26, 2023 - - - - - - - - - - - - - - - - - - - - - - - - - - - - - - - - - - - - - - - - FLACA WEAVER STANDARD FORM 515 ID:[id number] SEX:M :1950 AGE: 72 LOC:[id number] PCP: Jatinder Cabrera /alexi/ ZAC TAM STAFF PATHOLOGIST, PATHOLOGY & LABORATORY MED C Signed: 09/26/2023 15:19 ZAC TAM [facility] Encounter Notes: All associated encounter notes This section contains the clinical notes associated to the Encounter. Date/Time Encounter Note(s) Provider Source Oct 05, 2023 02:22 PM GASTROENTEROLOGY [place] TTENDING NOTE: LOCAL TITLE: GI CLINIC NOTE STANDARD TITLE: GASTROENTEROLOGY ATTENDING NOTE DATE OF NOTE: OCT 05, 2023@14:22 ENTRY DATE: OCT 05, 2023@14:22:27 AUTHOR: MAYA FAUSTIN EXP COSIGNER: URGENCY: STATUS: COMPLETED GASTROENTEROLOGY / HEPATOLOGY NOTE: ------ Assessment and Plan: FLACA WEAVER is a 72 year old MALE who presents for evaluation of abdominal pain. He had Colonoscopy on 09/21/23 that was notable for diverticulosis, internal and external hemorrhoids, and a small tubular adenoma. He says he notes constipation, abdominal bloating, some pain, that's worse with eating unhealthy foods and alcohol. He has soemtimes used miralax and fiber. He says he in the past had stopped marijuana for many months and these symptoms didn't go away. Assessment: # Constipation # Diverticulosis, Internal and external hemorrhoids - Colonoscopy done 08/2023 Recommendations: - Eat a healthy diet with 5 serving of fruits and vegetables - Start taking daiily psyllium - Start taking BID miralax - Consider stopping marijuana for 3 months to see if sypmtoms improve. Patient is not interested in this. No GI clinic follow-up needed. Greater than 50% of the time of this visit was spent in counseling patient on assessment and plan. Patient staffed with Dr. Nora Faustin Gastroenterology Fellow Chief Complaint / Consult Question: Constipation History of present illness: FLACA WEAVER is a 72 year old MALE who presents for evaluation of abdominal pain. He had Colonoscopy on 09/21/23 that was notable for diverticulosis, internal and external hemorrhoids, and a small tubular adenoma. He says he notes constipation, abdominal bloating, some pain, that's worse with eating unhealthy foods and alcohol. He has soemtimes used miralax and fiber. He says he in the past had stopped marijuana for many months and these symptoms didn't go away. Review of systems: Pertinent ROS otherwise negative Pertinent Past Medical History: Reviewed Active problems - Computerized Problem List is the source for the followin. Hypertension 2. Cannabis misuse 3. Impulse control disorder 4. Cervicalgia - 03.22.2017 C-S MRI: Advanced Cervical Spondylosis; Multi-level High Grade Foraminal Narrowing. 5. Sleep apnea - CPAP has been prescribed - not routinely using device. 6. Coronary artery disease - 03.23.2016 PCI: RCA stent(s). 12 month clopidogrel prescribed. 7. Hyperlipidemia 8. Colonoscopy normal - 05.28.2014 Procedure: No biopsies. 07.07.2020 Procedure: No Biopsoes . No additional CRC surveillance recommended by database consultant. 9. Decreased vitamin D - 02.24.2017 Vitamin D 26ng/mL. 10. Aneurysm of common iliac artery - 03.21.2017 U/S: L 2.0. 02.13.2019 CT: 2.0cm(R/L). 05.05.2020 CT: 1.9cm (R/L). 07.16.2021 R GAIL 1.9cm. L GAIL 2.0cm. 11. Pain of both knees 12. History of surgery - 09.02.2014 Left CTR. 09.03.2015 Hemorrhoidectomy. 13. Wrist pain 14. Carpal tunnel syndrome - 11.29.2011 Abnormal LUE EMG (C-7 & Median N.). 01.15.2016 Abnormal RUE EMG (Median N.). 15. Steatosis of liver - By 02.13.[address] 16. Diverticular disease - By 02.13.[address] 03.14.2020 OSH(ED [place], [place]): Pt. Declined Admission. 03.14.2020 CT with Mild Sigmoid diverticulitis. 04.23.2020 ED([facility]): Declined admission. 17. 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 18. Ex-tobacco user 19. Impaired Fasting Glucose ([facility] [id number]) - 02.26.2014 A1c 5.8%. 20. 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 05.05.[address]: 1.5cm L Adrenal Nodule. 07.24.2021 CT completed. 21. Abdominal aortic aneurysm - 05.05.[address]: O.9cm thrombosed saccular aneurysm to distal abdominal aorta. 22. Pancreatic cyst - 05.05.[address]: 0.7cm low-attenuation lesion tail of pancrease. Annual surveillance x 5 yr suggested for lesions < 1.5cm. 07.24.2021 CT completed. 23. Multiple nodules of lung - 11.11.2020 Initial LDCT. 11.24.2021 LDCT completed. 12 month surveillance recommended. 24. Hiatal hernia 25. Shoulder Pain ([facility] [id number]) 26. Trigger finger 27. [facility] Primary Care - Community Care Primary: Dr. Cathi Simeon, [facility] and [facility], [place] [address]. Allergies: Reviewed TERAZOSIN (Mar 13, 2015) Pertinent medications reviewed Active and Recently Outpatient Medications (including Supplies): Active Outpatient Medications Status 1) ATORVASTATIN CALCIUM 40MG TAB TAKE ONE-HALF TABLET BY ACTIVE MOUTH AT BEDTIME FOR CHOLESTEROL 2) EMPAGLIFLOZIN 25MG TAB TAKE ONE-HALF TABLET BY MOUTH ACTIVE EVERY DAY 3) FUROSEMIDE 20MG TAB TAKE ONE TABLET BY MOUTH EVERY ACTIVE DAY NEEDED TAKE ONE TABLET FOR WEIGHT GAIN OF 3 POUNDS OVERNIGHT OR MORE THAN 5 POUNDS IN 1 WEEK OR LEG SWELLING 4) HCTZ 12.5/LISINOPRIL 10MG TAB TAKE ONE HALF TABLET BY ACTIVE MOUTH EVERY DAY FOR BLOOD PRESSURE 5) ISOSORBIDE MONONITRATE 30MG SA TAB TAKE ONE TABLET BY ACTIVE MOUTH EVERY DAY FOR CHEST PAIN 6) NITROGLYCERIN 0.4MG SL TAB DISSOLVE ONE TABLET UNDER ACTIVE THE TONGUE THREE TIMES A DAY NEEDED FOR CHEST PAIN * MAY REPEAT EVERY 5 MINUTES--NO MORE THAN 3 TOTAL 7) ONDANSETRON 4MG ORAL DISINTEGRATING TAB DISSOLVE ONE ACTIVE TABLET IN UNDER THE TONGUE THREE TIMES A DAY NEEDED FOR NAUSEA 8) POLYETHYLENE GLYCOL 3350 ORAL PWDR TAKE 17 GRAMS BY ACTIVE MOUTH TWICE A DAY 9) SPIRONOLACTONE 25MG TAB TAKE ONE-HALF TABLET BY MOUTH ACTIVE EVERY DAY Pending Outpatient Medications Status 1) PSYLLIUM ORAL PWD TAKE 2 TEASPOONSFUL BY MOUTH EVERY PENDING DAY Inactive Outpatient Medications Status 1) BISACODYL 5MG EC TAB TAKE TWO TABLETS BY MOUTH ONCE FOR COLON PREP 2) COLON ELECTROLYTE LAVAGE PWD FOR SOLN TAKE ONE CONTAINER BY MOUTH DIRECTED FOR COLON PREP 3) DICYCLOMINE HCL 10MG CAP TAKE ONE CAPSULE BY MOUTH DISCONTINUED TWICE A DAY NEEDED FOR ABDOMINAL PAIN 4) EMPAGLIFLOZIN 25MG TAB TAKE ONE-HALF TABLET BY MOUTH DISCONTINUED EVERY DAY 5) ISOSORBIDE MONONITRATE 60MG SA TAB TAKE ONE TABLET BY DISCONTINUED MOUTH EVERY DAY FOR CHEST PAIN (EDIT) 6) PSYLLIUM ORAL PWD TAKE 1 TABLESPOONFUL BY MOUTH EVERY DISCONTINUED DAY FOR REGULAR BOWEL MOVEMENTS MIX IN 8 OUNCES OF WATER OR JUICE 7) SPIRONOLACTONE 25MG TAB TAKE ONE-HALF TABLET BY MOUTH DISCONTINUED EVERY DAY 17 Total Medications Social history: -Alcohol: Once a week -Tobacco: Former -Drugs: Daily marijuana EXAM: VS: Temp: 97.6 F [36.4 C] (10/05/2023 13:39) BP: 149/66 (10/05/2023 13:39) Pulse:56 (10/05/2023 13:39) Resp: 18 (10/05/2023 13:39) Pain: 0 (10/05/2023 13:39) Weight: WEIGHTS IN LAST 6 MONTHS: 225 (OCT 05, 2023@13:39:12) 237.5 (MAY 06, 2023@11:23:49) O2 sat: 97% (10/05/2023 13:39) Gen: NAD, Comfortable Cardiac: Chest/Lungs: on RA, no increased WOB Abdominal: Soft, NTND /Rectal: Extremities: No edema Neurological: Alert and grossly oriented, moving all extremities. Psych: Pleasant, appropriate mood and affect. --- --- Reviewed /jerome FAUSTIN DO GASTROENTEROLOGY FELLOW Signed: 10/05/2023 15:31 MAYA FAUSTIN [facility] Oct 05, 2023 01:40 PM INTERNAL MEDICINE OUTPATIENT NOTE: LOCAL TITLE: MEDICINE CLINIC NURSING NOTE STANDARD TITLE: INTERNAL MEDICINE OUTPATIENT NOTE DATE OF NOTE: OCT 05, 2023@13:40 ENTRY DATE: OCT 05, 2023@13:40:24 AUTHOR: NIKOLAI ROSSI EXP COSIGNER: URGENCY: STATUS: COMPLETED TYPE OF VISIT: Appointment Check In Type of appointment: In-person appointment REASON FOR VISIT: scheduled clinic appointment ALLERGIES: TERAZOSIN (Mar 13, 2015) VITAL SIGNS: Blood Pressure: 149/66 (10/05/2023 13:39)recheck 106/70 Pulse: 56 (10/05/2023 13:39) Respiration: 18 (10/05/2023 13:39) Temperature: 97.6 F [36.4 C] (10/05/2023 13:39) Weight: 225 lb [102.06 kg] (10/05/2023 13:39) Height: 71 in [180.3 cm] (10/05/2023 13:39) BMI: 31.4 O2 Sat: 97% (10/05/2023 13:39) Pain: 0 (10/05/2023 13:39) PAIN SCREEN: Patient is not having significant pain that they wish to discuss with their provider today. MEDICATION Over the Counter/Herbal Medications: The patient denies taking any outside medications or herbals. /alexi/ NIKOLAI ROSSI LPN, LPN Signed: 10/05/2023 13:41 NIKOLAI ROSSI [facility]
--- OUTSIDE RECORDS SUMMARY | 2024-04-23 07:09 | XMS_ITS | Encounter Summary ---
Author Name [facility] [place] [facility] [place] Address [address] [place] [address] Care Team Providers Care Hand Booked Folder And Stitcher Name Role Phone JATINDER CABRERA Primary Care [...] Member ID Insurance Provider's Telephone Number Policy Weinstien's Name Patient's Relationship to Policy Weinstein MEDICARE (WNR) MEDICARE (M) PART A Sep 29, 2016 PART A [id number] [phone] JUDY WEAVER PATIENT Selected Encounter This section includes the information on record at [place] for the Encounter. Date/Time Encounter Type Encounter Description Reason Provider Source May 06, 2023 11:30 AM OFFICE O/P EST HI 40-54 MIN PRIMARY CARE/MEDICINE ICD-10-CM I25.10 [place] heart disease of [place] coronary artery w/o ALEXIA Iqbal IHAlex Encounter Template Text not used by [place] Assessments - Encounter Diagnoses This section includes the primary and secondary diagnoses documented for the Encounter. Date/Time Primary/Secondary Diagnosis Diagnosis Name Provider Source May 06, 2023 12:25 PM PRIMARY Athscl heart disease of [place]gr[place] coronary artery w/o ALEXIA Iqbal [facility] Plan of Treatment: Future Appointments (+ 6 months) and Future Tests (+/- 45 days) The Plan of Treatment section includes future care activities for the [facility] [place] [facility] This section includes future appointments and future orders which are active, pending or scheduled. Future Appointments This section includes appointments that were scheduled to occur 6 months from the date of the Encounter, up to a maximum of 20 appointments. The data comes from all [place] treatment facilities. Appointment Date/Time Appointment Type Appointme nt Facility Name May 24, 2023 07:45 AM AMBULATORY - NONE [facility] Jun 30, 2023 10:30 AM AMBULATORY - MEDICINE [facility] Sep 21, 2023 07:15 AM AMBULATORY - MEDICINE [facility] Oct 05, 2023 02:00 PM AMBULATORY - MEDICINE [facility] Lab Results: +/- 30 days of the encounter This section includes the Chemistry and Hematology Lab Results on record with [place] for the patient. Radiology Reports and Pathology Reports are provided separately, in subsequent sections. Lab Results This section contains the Chemistry/Hematology Results that were resulted 30 days before or 30 daysafter the date of the Encounter. Date/Time Source Result Type Result - Unit Interpretation Reference Range Comment May 06, 2023 08:21 AM [facility] CBC Specimen Type: BLOOD No comment entered. Ordering Provider: GOLDIE CABRERA Report Released Date/Time: Oct 25, 2022 09:27 AM Reporting Lab: [facility] [id number] Performing Lab: [facility] [id number] WBC 9.88 10*3/uL 4.0-11.0 RBC 5.05 10*6/uL 4.6-6.2 HGB 16.5 g/dL 13.5-17.9 HCT 48.0 41-54 MCV 95.0 fL 80-100 MCH 32.7 pg 27-33 MCHC 34.4 g/dL 32.0-37.5 PLT 187 10*3/uL 150-400 MPV 11.2 fL H 7.4-10.4 RDW 14.6 H 11.5-14.5 May 06, 2023 08:21 AM [facility] BASIC METABOLIC PANEL+MG Specimen Type: PLASMA No comment entered. Ordering Provider: GOLDIE CABRERA Report Released Date/Time: Oct 25, 2022 09:27 AM Reporting Lab: [facility] [id number] Performing Lab: [facility] [id number] CREATININE 1.1 mg/dL 0.7-1.2 UREA NITROGEN 21 mg/dL 8-26 GLUCOSE 189 mg/dL H 70-100 SODIUM 137 mmol/L 136-145 POTASSIUM 3.9 mmol/L 3.5-5.1 CHLORIDE 103 mmol/L 98-107 CO2 24 mmol/L 22-29 CALCIUM 9.6 mg/dL 8.4-10.2 MAGNESIUM 2.1 mg/dL 1.6-2.6 ANION GAP 10 mmol/L 5-15 .CREAT EGFR(CKD-EPI) 72 >60 May 06, 2023 08:21 AM [facility] LIPID PANEL,NON-FASTING Specimen Type: PLASMA No comment entered. Ordering Provider: GOLDIE CABRERA Report Released Date/Time: Oct 25, 2022 09:27 AM Reporting Lab: [facility] [id number] Performing Lab: [facility] [id number] CHOLESTEROL 131 mg/dL <199 .HDL 35 mg/dL L >40 LDL CALCULATION 62 mg/dL <99 VLDL CALCULATION 34 mg/dL H <29 NON HDL CHOLESTEROL 96 mg/dL <129 TRIG(NON FASTING) 171 mg/dL H <149 Vital Signs: All taken on the encounter date This section contains inpatient and outpatient Vital Signs collected on the date of the Encounter. Date/Time Temperature Pulse Blood Pressure Respiratory Rate SP02 Pain Height Weight Body Mass Index Source May 06, 2023 11:29 AM 48 /min 113/72 mm[Hg] [facility] May 06, 2023 11:23 AM 97.5 F 49 /min 153/89 mm[Hg] 16 /min 96 % [address] [facility] Social History: Smoking Status (Most current) and Tobacco Use (All prior to encounter date) This section includes the most current, and the historical, smoking and tobacco- related health factors from the [facility] where the Encounter took place. Current Smoking Status This section includes the most current smoking, or tobacco-related health factor, from the [place] facility where the Encounter took place. Date/Time Current Smoking Status Comment Facil ity May 06, 2023 11:30 AM 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 [facility] Tobacco Use History This section includes a history of the smoking, or tobacco-related health factors, that were collected on or before the date of the Encounter. The data comes from the [facility] where the Encounter took place. Date/Time Smoking Status/Tobacco Use Comment F acility May 06, 2023 11:30 AM VA-TOBACCO QUIT 15 YRS OR MORE [facility] Jun 04, 2022 09:00 AM 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 [facility] Jun 04, 2022 09:00 AM VA-TOBACCO QUIT 15 YRS OR MORE [facility] Jul 10, 2021 08:00 AM 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 [facility] Jul 10, 2021 08:00 AM VA-TOBACCO QUIT 5 TO < 15 YRS [facility] May 23, 2020 08:30 AM 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 [facility] May 23, 2020 08:30 AM VA-TOBACCO QUIT 5 TO < 15 YRS [facility] Mar 20, 2019 04:03 PM 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 [facility] Mar 20, 2019 04:03 PM VA-TOBACCO QUIT 5 TO < 15 YRS [facility] Mar 21, 2018 08:13 AM FORMER TOBACCO USER 7Y OR GREATE R [facility] Feb 24, 2017 09:24 AM FORMER TOBACCO USER 7Y OR GREATE R [facility] January 07, 2016 08:01 AM FORMER TOBACCO USE >1Y <7Y [facility] Feb 03, 2015 07:58 AM FORMER TOBACCO USE <1Y [facility] Feb 26, 2014 08:41 AM CURRENT TOBACCO USER [facility] May 13, 2011 01:45 PM CURRENT TOBACCO USER [facility] Advance Directives: All historical and current Section Date Range: From patient's date of to the date document was created. This section includes ALL of a patient's completed or amended [place] Advance and Rescinded Directives. The entries below indicate that a directive exists for the patient, but an actual copy is not included with this document. The data comes from all [facility]. Date Advance Directives Provider Source Mar 23, 2016 CLINICAL WARNING [facility] Radiology Reports: +/- 30 days of the encounter Radiology Reports For cases when an order for radiology services may have been completed prior to the date of the Encounter, the report list includes the Radiology Reports that were completed up to 30 days before dateof the Encounter. For cases when an order for radiology services may have been completed after the date of the Encounter, the report list also includes the Radiology Reports that were completed up to30 days after date of the Encounter. The data comes from all [place] treatment facilities. Date/Time Radiology Report Provider Source May 24, 2023 07:28 AM LUMBAR SPINE MIN 4 VIEWS: FLACA WEAVER [id number] -[id number] M Exm Date: MAY 24, 2023@07:28 Req Phys: ELIJATINDER [place] Pat Loc: [facility] PACT IRIS WH 4D (Req'g Loc Img Loc: MAIN X-RAY Service: Unknown (Case [id number] COMPLETE) LUMBAR SPINE MIN 4 VIEWS (RAD Detailed) CPT:68256 Reason for Study: chronic left sided low back pain Clinical History: chronic left sided low back pain Responsible provider name and phone number to notify for critical findings if other than user placing the order and pager listed below: User placing orders pager: [phone] LAST CREATININE 1.1 (05/06/23) Report Status: Verified Date Reported: MAY 24, 2023 Date Verified: MAY 24, 2023 Insulation Board Head Saw Operator E-Sig:/ES/EDUARDO HERNDON MD, FACR, CCD Report: EXAMINATION: LUMBAR SPINE MIN 4 VIEWS 05/24/2023 7:28 AM INDICATION: chronic left sided low back pain COMPARISON: None. FINDINGS: Postsurgical changes compatible with previous laminectomies suggested at the L4/L5 levels. The lumbar vertebral bodies appear intact. No abnormal subluxation visualized. Degenerative changes with disc space narrowing L5-S1. Degenerative changes with disc space narrowing L2-3 and L3-4 disc spaces. Vascular calcification abdominal aorta and common iliac arteries. Mild degenerative changes SI joints. Degenerative changes bilateral hip joints. Impression: Postsurgical changes lower lumbar spine. Degenerative changes. Primary Interpreting Staff: EDUARDO HERNDON MD, FACR, STAFF RADIOLOGIST (Insulation Board Head Saw Operator) /EDUARDO GEORGE [facility] Encounter Notes: All associated encounter notes This section contains the clinical notes associated to the Encounter. Date/Time Encounter Note(s) Provider Source May 25, 2023 07:30 AM ADDENDUM: LOCAL TITLE: Addendum STANDARD TITLE: ADDENDUM DATE OF NOTE: MAY 25, 2023@07:30:32 ENTRY DATE: MAY 25, 2023@07:30:33 AUTHOR: JATINDER CABRERA EXP COSIGNER: URGENCY: STATUS: COMPLETED Lumbar Xrays are c/w prior surgery and arthritic changes in L spine and hips. -recommend trial of PT w/ further plans TBD pending response to PT ----> PACT RN: <---- please let patient know /es/ Jatinder Cabrera MD Physician Signed: 05/25/2023 07:31 Receipt Acknowledged By: 05/25/2023 09:37 /es/ GUERITA AGUILA RN REGISTERED NURSE --- Original Document --- 05/06/23 MEDICINE CLINIC NOTE: Time spent with patient, chart review, documentation, and coordination of care: 50 minutes Assessment and plan: --> CC PCP Dr Steven Sheth--> patient states he is no longer seeing him CAD s/p stenting RCA 2015 h/o heart failure (2015 EF 55-60 w/ no sig diastolic dysfunction) HTN/Lipids -current regimen asa 81 mg qday Atorvastatin 20 mg QDay Empagliflozin 12.5 mg QDay Lasix 20 mg po QDay prn Isosorbide mono ER 30 mg QDay Lis/HCTZ 5/6.25 mg QDay Spironolactone 12.5 mg QDay Chronic intermittent LLQ pain Intermittent melena (resolved today) Anemia NOS IBS h/o recurrent diverticulitis Chronic constipation -CLP 2019 reassuring (mild diverticulosis noted) -in ER Aug 2022 w/ LLQ pain and referred to GI given CT findings (see imaging). Treated w/ augmentin for presumed diverticulitis. -saw GI Aug 2022: CLP recommended to rule out malignancy, stopped dicyclomine d/t constipation. Has yet to have CLP done. States he received prep but procedure was never scheduled. 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 Asymptomatic -repeat imaging in one year (Aug 2023). Ordered -possible HG stenosis noted in [place]. Pt denies any claudication or ischemia symptoms today. 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 No recent imaging to review. Pain localized in left sided low back and medial posterior hip region. no radiation down leg. Unable to get any further history. -XRays ordered Decreased hearing -no impactions -encouraged otc loratadine, cetirizine, fexofenadine etc -encouraged self-rfl to audiology for testing Health maintenance -CLP 2019, no further routine screening per GI. See above for ongoing LLQ pain, melena, etc for plans -PSA nml 2021, has aged out of ongoing routine screening -Lung nodule surveillance dced 2021 -LDCT for cancer screen due October 2023 -BCIAA screen due Aug 2023 Await PFTs and low back XRays for further plans. Need defined diagnosis for DMV tags and hopefully this input will aid with being able to get him tags. Unlcear if he will have testing as he states he thinks the [facility] is [facility] and then declined having imaging done today as he felt he was here enough time already today. RTC in 6 months. Will see what labs he is due for at the time and order accordingly. = Nurse's notes reviewed from today. FLACA WEAVER is a 72 year old MALE with the following Chief complaint: PCP fu pt requesting disability tags. history is both denzel and meandering. states his legs give out with walking and then reported this doesn't happen. He actually feels winded when out walking. no CP or pressure and has no orthopnea. also reports he can't walk long distances due to chronic left sided LBP with some extension into medial posterior hip. issue has been going on since his 20s. reports 3 back surgeries in the 1970s and 1980s. Family History: negative for CAD or prostate cancer Social History: Lives with long-term GF denies ETOH use Tob-- s/p 40 yr pk habit, quit 2017 quit MJ 2022 HPI/ROS:as above Active problems - Computerized Problem List is [...] . No additional CRC surveillance recommended by automotive internet sales consultant. 9. Decreased vitamin D - 02.24.2017 [...] - By 02.13.[address] 03.14.2020 OSH(ED [place], [place]): Pt. Declined Admission. 03.14.2020 CT with Mild Sigmoid diverticulitis. 04.23.2020 ED([facility]): Declined admission. 17. 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 18. Ex-tobacco user 19. Impaired Fasting Glucose (SCT [id number]) - 02.26.2014 A1c 5.8%. 20. Adrenal mass [...] recommended. 24. Hiatal hernia 25. Shoulder Pain (SCT [id number]) 26. Trigger finger 27. [facility] Primary Care - Community Care Primary: Dr. Cathi Simeon, [facility], [place] [address]. Allergies: TERAZOSIN (Mar 13, 2015) EXAM: VS: Temp: 97.5 F [36.4 C] (05/06/2023 11:23) BP: 113/72 (05/06/2023 11:29) Pulse:48 (05/06/2023 11:29) Resp: 16 (05/06/2023 11:23) Pain: 0 (05/06/2023 11:23) Weight: WEIGHTS IN LAST 6 MONTHS: 237.5 (MAY 06, 2023@11:23:49) 244.2 (JANUARY 05, 2023@13:58:22) General: NAD, Alert HEENT: PERRL EOMI Lungs: CTAB Heart: RRR Gait: stable and independant Data/Labs: GLUCOSE: 189 H UREA NITROGEN: 21 CREATININE: 1.1 SODIUM: 137 POTASSIUM: 3.9 CHLORIDE: 103 CO2: 24 CALCIUM: 9.6 CHOLESTEROL: 131 MAGNESIUM: 2.1 HDL: 35 L ANION GAP: 10 LDL CHOL: 62 VLDL CHOL: 34 H NON HDL CHOLESTEROL: 96 TRIG(NON FASTING): 171 H CREATININE EGFR (CKD-EPI): 72 WBC: 9.88 RBC: 5.05 HGB: 16.5 HCT: 48.0 MCV: 95.0 MCH: 32.7 MCHC: 34.4 RDW: 14.6 H PLT: 187 MPV: 11.2 H ( x)Patient was informed of available lab, imaging, and other study results associated with today's visit. Medication Reconciliation: Education Evaluations *Was medication education provided for NEW medications or CHANGES to medications? (including medication name, dose, route, reason for use, and potential side effects). No new medications or medication changes during this encounter. TERATOGENIC MED & CONTRACEPTION REVIEW (Optional)... ======= MEDICATION RECONCILIATION ======= Review Done: The medication list shown below was verified for accuracy and it includes all pending medications/active medications/all medications or discontinued within the last 90 days/all remote medications and non-VA medications. If a given category (i.e. remote meds) is not shown, that means that a patient doesn't have a medication(s) in that category. Allergies listed below were also reviewed/updated for accuracy. Allergies/ADR from [facility] may not display in CPRS. Use JLV MRT5 - Allergies/ADRs FACILITY ALLERGY/ADR -------- No Remote Allergy/ADR Data available for this patient [facility] TERAZOSIN Active and Recently Outpatient Medications (including Supplies): Issue Date Status Last Fill Active Outpatient Medications Refills Expiration 1) ASPIRIN 81MG EC TAB Qty: 120 for 90 ACTIVE Issu:06-04-22 days Sig: TAKE ONE TABLET BY MOUTH Refills: 3 Last:06-04-22 EVERY MORNING Expr:06-05-23 2) ATORVASTATIN CALCIUM 40MG TAB Qty: 45 ACTIVE Issu:05-14-22 for 90 days Sig: TAKE ONE-HALF TABLET Refills: 0 Last:03-25-23 BY MOUTH AT BEDTIME FOR CHOLESTEROL Expr:05-15-23 3) EMPAGLIFLOZIN 25MG TAB Qty: 45 for 90 ACTIVE Issu:10-25-22 days Sig: TAKE ONE-HALF TABLET BY Refills: 2 Last:04-06-23 MOUTH EVERY DAY Expr:10-26-23 4) FUROSEMIDE 20MG TAB Qty: 90 for 90 days ACTIVE Issu:10-25-22 Sig: TAKE ONE TABLET BY MOUTH EVERY Refills: 2 Last:03-03-23 DAY NEEDED TAKE ONE TABLET FOR Expr:10-26-23 WEIGHT GAIN OF 3 POUNDS OVERNIGHT OR MORE THAN 5 POUNDS IN 1 WEEK OR LEG SWELLING 5) HCTZ 12.5/LISINOPRIL 10MG TAB Qty: 45 ACTIVE Issu:10-25-22 for 90 days Sig: TAKE ONE HALF TABLET Refills: 3 Last:10-28-22 BY MOUTH EVERY DAY FOR BLOOD PRESSURE Expr:10-26-23 6) ISOSORBIDE MONONITRATE 30MG SA TAB Qty: ACTIVE Issu:10-25-22 90 for 90 days Sig: TAKE ONE TABLET Refills: 2 Last:03-25-23 BY MOUTH EVERY DAY FOR CHEST PAIN Expr:10-26-23 7) ONDANSETRON 4MG ORAL DISINTEGRATING TAB ACTIVE Issu:10-25-22 Qty: 30 for 10 days Sig: DISSOLVE ONE Refills: 1 Last:10-26-22 TABLET IN UNDER THE TONGUE THREE TIMES Expr:10-26-23 A DAY NEEDED FOR NAUSEA 8) POLYETHYLENE GLYCOL 3350 ORAL PWDR Qty: ACTIVE Issu:01-05-23 1020 for 30 days Sig: TAKE 17 GRAMS Refills: 11 Last:01-10-23 BY MOUTH TWICE A DAY Expr:01-06-24 9) SPIRONOLACTONE 25MG TAB Qty: 15 for 30 ACTIVE Issu:01-26-23 days Sig: TAKE ONE-HALF TABLET BY Refills: 0 Last:04-06-23 MOUTH EVERY DAY Expr:01-27-24 Issue Date Status Last Fill Pending Outpatient Medications Refills Expiration 1) SPIRONOLACTONE 25MG TAB Qty: 15 Sig: PENDING TAKE ONE-HALF TABLET BY MOUTH EVERY Refills: 0 DAY Issue Date Status Last Fill Inactive Outpatient Medications Refills Expiration 1) BISACODYL 5MG EC TAB Qty: 2 for 2 days Issu:01-05-23 Sig: TAKE TWO TABLETS BY MOUTH Refills: 0 Last:01-06-23 DIRECTED FOR COLON PREP Expr:02-04-23 2) COLON ELECTROLYTE LAVAGE PWD FOR SOLN Issu:01-05-23 Qty: 1 for 2 days Sig: TAKE ONE Refills: 0 Last:01-06-23 CONTAINER BY MOUTH DIRECTED FOR Expr:02-04-23 COLON PREP 3) DICYCLOMINE HCL 10MG CAP Qty: 20 for 10 DISCONTINUED Issu:10-25-22 days Sig: TAKE ONE CAPSULE BY MOUTH Refills: 2 Last:10-26-22 TWICE A DAY NEEDED FOR ABDOMINAL Expr:10-26-23 PAIN 4) EMPAGLIFLOZIN 25MG TAB Qty: 45 for 90 DISCONTINUED Issu:07-12-22 days Sig: TAKE ONE-HALF TABLET BY Refills: 0 Last:10-14-22 MOUTH EVERY DAY Expr:07-13-23 5) HCTZ 12.5/LISINOPRIL 10MG TAB Qty: 90 DISCONTINUED Issu:05-14-22 for 90 days Sig: TAKE 1 TABLET BY (EDIT) Last:08-24-22 MOUTH EVERY DAY Refills: 2 Expr:05-15-23 6) ISOSORBIDE MONONITRATE 30MG SA TAB Qty: DISCONTINUED Issu:02-22-22 90 for 90 days Sig: TAKE ONE TABLET (EDIT) Last:06-04-22 BY MOUTH EVERY DAY FOR CHEST PAIN Refills: 2 Expr:02-23-23 7) ISOSORBIDE MONONITRATE 60MG SA TAB Qty: DISCONTINUED Issu:07-12-22 90 for 90 days Sig: TAKE ONE TABLET (EDIT) Last:07-13-22 BY MOUTH EVERY DAY FOR CHEST PAIN Refills: 3 Expr:07-13-23 8) NITROGLYCERIN 0.4MG SL TAB Qty: 100 for Issu:02-18-22 30 days Sig: DISSOLVE ONE TABLET Refills: 1 Last:02-18-22 UNDER THE TONGUE THREE TIMES A DAY Expr:02-19-23 NEEDED FOR CHEST PAIN * MAY REPEAT EVERY 5 MINUTES--NO MORE THAN 3 TOTAL 9) POLYETHYLENE GLYCOL 3350 ORAL PWDR Qty: DISCONTINUED Issu:10-14-22 510 for 90 days Sig: TAKE 17 GRAMS BY Refills: 0 Last:11-20-22 MOUTH EVERY MORNING FOR CONSTIPATION. Expr:01-12-23 MIX WITH 4-8 OUNCES OF LIQUID. USE CAP. FOR MEASURING. 10) PSYLLIUM ORAL PWD Qty: 390 for 90 days DISCONTINUED Issu:09-01-22 Sig: TAKE 1 TABLESPOONFUL BY MOUTH Refills: 1 Last:09-01-22 EVERY DAY FOR REGULAR BOWEL MOVEMENTS Expr:09-02-23 MIX IN 8 OUNCES OF WATER OR JUICE 11) SPIRONOLACTONE 25MG TAB Qty: 15 for 30 DISCONTINUED Issu:07-12- days Sig: TAKE ONE-HALF TABLET BY Refills: 0 Last:12-27-22 MOUTH EVERY DAY Expr:07-13-23 21 Total Medications /es/ Jatinder Cabrera MD Physician Signed: 05/06/2023 12:25 JATINDER CABRERA [facility] May 06, 2023 11:53 AM INTERNAL MEDICINE NOTE: LOCAL TITLE: MEDICINE CLINIC NOTE STANDARD TITLE: INTERNAL MEDICINE NOTE DATE OF NOTE: MAY 06, 2023@11:53 ENTRY DATE: MAY 06, 2023@11:53:32 AUTHOR: JATINDER CABRERA EXP COSIGNER: URGENCY: STATUS: COMPLETED MEDICINE CLINIC NOTE Has ADDENDA Time spent with patient, chart review, documentation, and coordination of care: 50 minutes Assessment and plan: --> CC PCP Dr Steven Sheth--> patient states he is no longer seeing him CAD s/p stenting RCA 2015 h/o heart failure (2015 EF 55-60 w/ no sig diastolic dysfunction) HTN/Lipids -current regimen asa 81 mg qday Atorvastatin 20 mg QDay Empagliflozin 12.5 mg QDay Lasix 20 mg po QDay prn Isosorbide mono ER 30 mg QDay Lis/HCTZ 5/6.25 mg QDay Spironolactone 12.5 mg QDay Chronic intermittent LLQ pain Intermittent melena (resolved today) Anemia NOS IBS h/o recurrent diverticulitis Chronic constipation -CLP 2019 reassuring (mild diverticulosis noted) -in ER Aug 2022 w/ LLQ pain and referred to GI given CT findings (see imaging). Treated w/ augmentin for presumed diverticulitis. -saw GI Aug 2022: CLP recommended to rule out malignancy, stopped dicyclomine d/t constipation. Has yet to have CLP done. States he received prep but procedure was never scheduled. 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 Asymptomatic -repeat imaging in one year (Aug 2023). Ordered -possible HG stenosis noted in [place]. Pt denies any claudication or ischemia symptoms today. 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 No recent imaging to review. Pain localized in left sided low back and medial posterior hip region. no radiation down leg. Unable to get any further history. -XRays ordered Decreased hearing -no impactions -encouraged otc loratadine, cetirizine, fexofenadine etc -encouraged self-rfl to audiology for testing Health maintenance -CLP 2019, no further routine screening per GI. See above for ongoing LLQ pain, melena, etc for plans -PSA nml 2021, has aged out of ongoing routine screening -Lung nodule surveillance dced 2021 -LDCT for cancer screen due October 2023 -BCIAA screen due Aug 2023 Await PFTs and low back XRays for further plans. Need defined diagnosis for DMV tags and hopefully this input will aid with being able to get him tags. Unlcear if he will have testing as he states he thinks the [facility] is useless and then declined having imaging done today as he felt he was here enough time already today. RTC in 6 months. Will see what labs he is due for at the time and order accordingly. = Nurse's notes reviewed from today. FLACA WEAVER is a 72 year old MALE with the following Chief complaint: PCP fu pt requesting disability tags. history is both denzel and meandering. states his legs give out with walking and then reported this doesn't happen. He actually feels winded when out walking. no CP or pressure and has no orthopnea. also reports he can't walk long distances due to chronic left sided LBP with some extension into medial posterior hip. issue has been going on since his 20s. reports 3 back surgeries in the 1970s and 1980s. Family History: negative for CAD or prostate cancer Social History: Lives with long-term GF denies ETOH use Tob-- s/p 40 yr pk habit, quit 2017 quit MJ 2022 HPI/ROS:as above Active problems - Computerized Problem List is [...] . No additional CRC surveillance recommended by automotive internet sales consultant. 9. Decreased vitamin D - 02.24.2017 Vitamin D 26ng/mL. 10. Aneurysm of common iliac artery - 03.21.2017 U/S: L 2.0. 02.13.2019 CT: 2.0cm(R/L). 05.05.2020 CT: 1.9cm (R/L). 07.16.2021 R GAIL 1.9cm. L GAIL 2.0cm. 11. Pain of both knees 12. History of surgery - 09.02.2014 Left CTR. 09.03.2016 Hemorrhoidectomy. 13. Wrist pain 14. Carpal tunnel syndrome - 11.29.2011 Abnormal LUE EMG (C-7 & Median N.). 01.15.2016 Abnormal RUE EMG (Median N.). 15. Steatosis of liver - By 02.13.[address] 16. Diverticular disease - By 02.13.[address] 03.14.2020 OSH(ED [place], [place]): Pt. Declined Admission. 03.14.2020 CT with Mild Sigmoid diverticulitis. 04.23.2020 ED([facility]): Declined admission. 17. 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 18. Ex-tobacco user 19. Impaired Fasting Glucose (SCT [id number]) - 02.26.2014 A1c 5.8%. 20. Adrenal mass [...] recommended. 24. Hiatal hernia 25. Shoulder Pain (SCT [id number]) 26. Trigger finger 27. [facility] Primary Care - Community Care Primary: Dr. Cathi Simeon, [facility], [place] [address]. Allergies: TERAZOSIN (Mar 13, 2015) EXAM: VS: Temp: 97.5 F [36.4 C] (05/06/2023 11:23) BP: 113/72 (05/06/2023 11:29) Pulse:48 (05/06/2023 11:29) Resp: 16 (05/06/2023 11:23) Pain: 0 (05/06/2023 11:23) Weight: WEIGHTS IN LAST 6 MONTHS: 237.5 (MAY 06, 2023@11:23:49) 244.2 (JANUARY 05, 2023@13:58:22) General: NAD, Alert HEENT: PERRL EOMI Lungs: CTAB Heart: RRR Gait: stable and independant Data/Labs: GLUCOSE: 189 H UREA NITROGEN: 21 CREATININE: 1.1 SODIUM: 137 POTASSIUM: 3.9 CHLORIDE: 103 CO2: 24 CALCIUM: 9.6 CHOLESTEROL: 131 MAGNESIUM: 2.1 HDL: 35 L ANION GAP: 10 LDL CHOL: 62 VLDL CHOL: 34 H NON HDL CHOLESTEROL: 96 TRIG(NON FASTING): 171 H CREATININE EGFR (CKD-EPI): 72 WBC: 9.88 RBC: 5.05 HGB: 16.5 HCT: 48.0 MCV: 95.0 MCH: 32.7 MCHC: 34.4 RDW: 14.6 H PLT: 187 MPV: 11.2 H ( x)Patient was informed of available lab, imaging, and other study results associated with today's visit. Medication Reconciliation: Education Evaluations *Was medication education provided for NEW medications or CHANGES to medications? (including medication name, dose, route, reason for use, and potential side effects). No new medications or medication changes during this encounter. TERATOGENIC MED & CONTRACEPTION REVIEW (Optional)... ======= MEDICATION RECONCILIATION ======= Review Done: The medication list shown below was verified for accuracy and it includes all pending medications/active medications/all medications or discontinued within the last 90 days/all remote medications and non-VA medications. If a given category (i.e. remote meds) is not shown, that means that a patient doesn't have a medication(s) in that category. Allergies listed below were also reviewed/updated for accuracy. Allergies/ADR from [employer] may not display in CPRS. Use JLV MRT5 - Allergies/ADRs FACILITY ALLERGY/ADR -------- No Remote Allergy/ADR Data available for this patient [facility] TERAZOSIN Active and Recently Outpatient Medications (including Supplies): Issue Date Status Last Fill Active Outpatient Medications Refills Expiration 1) ASPIRIN 81MG EC TAB Qty: 120 for 90 ACTIVE Issu:06-04-22 days Sig: TAKE ONE TABLET BY MOUTH Refills: 3 Last:06-04-22 EVERY MORNING Expr:06-05-23 2) ATORVASTATIN CALCIUM 40MG TAB Qty: 45 ACTIVE Issu:05-14-22 for 90 days Sig: TAKE ONE-HALF TABLET Refills: 0 Last:03-25-23 BY MOUTH AT BEDTIME FOR CHOLESTEROL Expr:05-15-23 3) EMPAGLIFLOZIN 25MG TAB Qty: 45 for 90 ACTIVE Issu:10-25-22 days Sig: TAKE ONE-HALF TABLET BY Refills: 2 Last:04-06-23 MOUTH EVERY DAY Expr:10-26-23 4) FUROSEMIDE 20MG TAB Qty: 90 for 90 days ACTIVE Issu:10-25-22 Sig: TAKE ONE TABLET BY MOUTH EVERY Refills: 2 Last:03-03-23 DAY NEEDED TAKE ONE TABLET FOR Expr:10-26-23 WEIGHT GAIN OF 3 POUNDS OVERNIGHT OR MORE THAN 5 POUNDS IN 1 WEEK OR LEG SWELLING 5) HCTZ 12.5/LISINOPRIL 10MG TAB Qty: 45 ACTIVE Issu:10-25-22 for 90 days Sig: TAKE ONE HALF TABLET Refills: 3 Last:10-28-22 BY MOUTH EVERY DAY FOR BLOOD PRESSURE Expr:10-26-23 6) ISOSORBIDE MONONITRATE 30MG SA TAB Qty: ACTIVE Issu:10-25-22 90 for 90 days Sig: TAKE ONE TABLET Refills: 2 Last:03-25-23 BY MOUTH EVERY DAY FOR CHEST PAIN Expr:10-26-23 7) ONDANSETRON 4MG ORAL DISINTEGRATING TAB ACTIVE Issu:10-25-22 Qty: 30 for 10 days Sig: DISSOLVE ONE Refills: 1 Last:10-26-22 TABLET IN UNDER THE TONGUE THREE TIMES Expr:10-26-23 A DAY NEEDED FOR NAUSEA 8) POLYETHYLENE GLYCOL 3350 ORAL PWDR Qty: ACTIVE Issu:01-05-23 1020 for 30 days Sig: TAKE 17 GRAMS Refills: 11 Last:01-10-23 BY MOUTH TWICE A DAY Expr:01-06-24 9) SPIRONOLACTONE 25MG TAB Qty: 15 for 30 ACTIVE Issu:01-26-23 days Sig: TAKE ONE-HALF TABLET BY Refills: 0 Last:04-06-23 MOUTH EVERY DAY Expr:01-27-24 Issue Date Status Last Fill Pending Outpatient Medications Refills Expiration 1) SPIRONOLACTONE 25MG TAB Qty: 15 Sig: PENDING TAKE ONE-HALF TABLET BY MOUTH EVERY Refills: 0 DAY Issue Date Status Last Fill Inactive Outpatient Medications Refills Expiration 1) BISACODYL 5MG EC TAB Qty: 2 for 2 days Issu:01-05-23 Sig: TAKE TWO TABLETS BY MOUTH Refills: 0 Last:01-06-23 DIRECTED FOR COLON PREP Expr:02-04-23 2) COLON ELECTROLYTE LAVAGE PWD FOR SOLN Issu:01-05-23 Qty: 1 for 2 days Sig: TAKE ONE Refills: 0 Last:01-06-23 CONTAINER BY MOUTH DIRECTED FOR Expr:02-04-23 COLON PREP 3) DICYCLOMINE HCL 10MG CAP Qty: 20 for 10 DISCONTINUED Issu:10-25-22 days Sig: TAKE ONE CAPSULE BY MOUTH Refills: 2 Last:10-26-22 TWICE A DAY NEEDED FOR ABDOMINAL Expr:10-26-23 PAIN 4) EMPAGLIFLOZIN 25MG TAB Qty: 45 for 90 DISCONTINUED Issu:07-12-22 days Sig: TAKE ONE-HALF TABLET BY Refills: 0 Last:10-14-22 MOUTH EVERY DAY Expr:07-13-23 5) HCTZ 12.5/LISINOPRIL 10MG TAB Qty: 90 DISCONTINUED Issu:05-14-22 for 90 days Sig: TAKE 1 TABLET BY (EDIT) Last:08-24-22 MOUTH EVERY DAY Refills: 2 Expr:05-15-23 6) ISOSORBIDE MONONITRATE 30MG SA TAB Qty: DISCONTINUED Issu:02-22-22 90 for 90 days Sig: TAKE ONE TABLET (EDIT) Last:06-04-22 BY MOUTH EVERY DAY FOR CHEST PAIN Refills: 2 Expr:02-23-23 7) ISOSORBIDE MONONITRATE 60MG SA TAB Qty: DISCONTINUED Issu:07-12-22 90 for 90 days Sig: TAKE ONE TABLET (EDIT) Last:07-13-22 BY MOUTH EVERY DAY FOR CHEST PAIN Refills: 3 Expr:07-13-23 8) NITROGLYCERIN 0.4MG SL TAB Qty: 100 for Issu:02-18-22 30 days Sig: DISSOLVE ONE TABLET Refills: 1 Last:02-18-22 UNDER THE TONGUE THREE TIMES A DAY Expr:02-19-23 NEEDED FOR CHEST PAIN * MAY REPEAT EVERY 5 MINUTES--NO MORE THAN 3 TOTAL 9) POLYETHYLENE GLYCOL 3350 ORAL PWDR Qty: DISCONTINUED Issu:10-14-22 510 for 90 days Sig: TAKE 17 GRAMS BY Refills: 0 Last:11-20-22 MOUTH EVERY MORNING FOR CONSTIPATION. Expr:01-12-23 MIX WITH 4-8 OUNCES OF LIQUID. USE CAP. FOR MEASURING. 10) PSYLLIUM ORAL PWD Qty: 390 for 90 days DISCONTINUED Issu:09-01-22 Sig: TAKE 1 TABLESPOONFUL BY MOUTH Refills: 1 Last:09-01-22 EVERY DAY FOR REGULAR BOWEL MOVEMENTS Expr:09-02-23 MIX IN 8 OUNCES OF WATER OR JUICE 11) SPIRONOLACTONE 25MG TAB Qty: 15 for 30 DISCONTINUED Issu:07-12-22 days Sig: TAKE ONE-HALF TABLET BY Refills: 0 Last:12-27-22 MOUTH EVERY DAY Expr:07-13-23 21 Total Medications /alexi/ Jatinder Cabrera MD Physician Signed: 05/06/2023 12:25 05/25/2023 ADDENDUM STATUS: COMPLETED Lumbar Xrays are c/w prior surgery and arthritic changes in L spine and hips. -recommend trial of PT w/ further plans TBD pending response to PT ----> PACT RN: <---- please let patient know /jerome Cabrera MD Physician Signed: 05/25/2023 07:31 Receipt Acknowledged By: 05/25/2023 09:37 /alexi/ GUERITA AGUILA RN REGISTERED NURSE 05/25/2023 ADDENDUM STATUS: COMPLETED Spoke with patient regarding his lumbar x-ray results and the recommendation to try PT. Pt was concerned about financial coverage if he goes to PT. Recommended he contact the benefits office to see what his coverage would be for therapy and then he can schedule with PT directly. Pt said he would do that and verbalized understanding. /alexi/ GUERITA AGUILA RN REGISTERED NURSE Signed: 05/25/2023 09:42 07/05/2023 ADDENDUM STATUS: COMPLETED Spirometry is normal. letter sent to patient /alexi/ Jatinder Cabrera MD Physician Signed: 07/05/2023 07:06 JATINDER CABRERA [facility] May 06, 2023 11:25 AM INTERNAL MEDICINE OUTPATIENT NOTE: LOCAL TITLE: MEDICINE CLINIC NURSING NOTE STANDARD TITLE: INTERNAL MEDICINE OUTPATIENT NOTE DATE OF NOTE: MAY 06, 2023@11:25 ENTRY DATE: MAY 06, 2023@11:25:43 AUTHOR: TANG JAMIL EXP COSIGNER: URGENCY: STATUS: COMPLETED MEDICINE CLINIC NURSING NOTE Has ADDENDA TYPE OF VISIT: Appointment Check In Type of appointment: In-person appointment REASON FOR VISIT: annual ALLERGIES: TERAZOSIN (Mar 13, 2015) VITAL SIGNS: Blood Pressure: 153/89 (05/06/2023 11:23) Pulse: 49 (05/06/2023 11:) Respiration: 16 (05/06/2023 11:) Temperature: 97.5 F [36.4 C] (05/06/2023 11:23) Weight: 237.5 lb [107.73 kg] (05/06/2023 11:) Height: 71 in [180.3 cm] (05/06/2023 11:) BMI: 33.2 O2 Sat: 96% (05/06/2023 11:) Pain: 0 (05/06/2023:) PAIN SCREEN: Patient is not having significant pain that they wish to discuss with their provider today. MEDICATION Over the Counter/Herbal Medications: The patient denies taking any outside medications or herbals. Alcohol Use Screen (AUDIT-C): Alcohol Screen: SCREEN FOR ALCOHOL (AUDIT-C) An alcohol screening test (AUDIT-C) was negative (score=4). 1. How often did you have a drink containing alcohol in the past year? Two to three times per week 2. How many drinks containing alcohol did you have on a typical day when you were drinking in the past year? Three or four drinks 3. How often did you have six or more drinks on one occasion in the past year? Never Tobacco Use Screening: The patient is a former tobacco user. The patient quit fifteen or more years ago. Nursing Annual Screening: Fall History Screen During the past 12 months, have you had any falls? Patient does not report any falls in the past 12 months. MEDICATIONS: Patient is on one of the following medication classes: Antihypertensives, Antidepressants, Antipsychotics, Diuretics, or Controlled substance medication used for pain. FALL RISK ADVICE: Fall Risk Advice provided. Handout entitled Fall Prevention At Home reviewed and given to patient and/or significant other. Script Talk Screen Are you able to read your prescription bottles with your glasses, magnifiers or other aids? Yes or patient not taking any prescriptions. Skin Screen Patient reports any current pressure ulcers, a history of pressure ulcers, or a wound from a medical certification specialist or Patient is bed-confined or a wheelchair-user or Patient requires assistance to transfer/change position No, Skin Screen is Negative Home Abuse/Violence Screen Is your home free of abuse and violence? Yes MOVE! Program Screen Body Mass Index (BMI)= 33.2 Gibson: Collection DT Specimen Test Name Result Units Ref Range 06/04/2022 07:24 BLOOD !! HEMOGLOBIN A1C 5.8 % 4.0 - 6.0 !! Indicates COMMENTS AVAILABLE...Refer to Interim Lab Report. [place] Hgb A1C: No data available [place] Hgb A1C: No data available Point of Care Hgb A1C: POC HGB A1C____ Outpatient Nutrition Screen Body Mass Index (BMI)= 33.2 Gibson: Collection DT Specimen Test Name Result Units Ref Range 06/04/2022 07:24 BLOOD !! HEMOGLOBIN A1C 5.8 % 4.0 - 6.0 !! Indicates COMMENTS AVAILABLE...Refer to Interim Lab Report. [place] Hgb A1C: No data available [place] Hgb A1C: No data available Point of Care Hgb A1C: POC HGB A1C____ Is patient's BMI less than 18.5? No Does patient have swallowing, coughing, or chewing problems affecting oral intake? No Has patient experienced unplanned weight loss or gain greater than 10 pounds over the last 2 months? No Is patient's Hgb A1C (Glycosylated Hemoglobin) greater than 9.5? No Is patient receiving Total Parenteral Nutrition (TPN) or Tube Feedings? No Patient Health Education Screen BARRIERS/SPECIAL NEEDS: Physical limitations Hearing limitations Visual limitations PREFERRED STYLE OF LEARNING: No preference stated Client Assistive Service (JOSÉ) Screen Does the patient require assistance with outpatient visit? No /alexi/ TANG JAMIL LPN Signed: 05/06/2023 11:28 05/06/2023 ADDENDUM STATUS: COMPLETED Second blood pressure: 113/72 Pulse: 48 Patient denied chest pain, arm pain, and shortness of breath. /es/ TANG JAMIL LPN Signed: 05/06/2023 11:30 TANG JAMIL [facility]
--- OUTSIDE RECORDS SUMMARY | 2024-04-23 07:09 | XMS_ITS | Encounter Summary ---
Author Name [facility] [place] [facility] [place] [facility] [place] Address [address] [place] [address] Care Team Providers Care Component Prep Operator Name Role Phone JATINDER BENITEZ Primary [...] PART A Sep 29, 2016 PART A [phone] JUDY WEAVER PATIENT Selected Encounter This section includes the information on record at [place] for the Encounter. Date/Time Encounter Type Encounter Description Reason Provider Source January 25, 2024 11:19 AM Outpatient Encounter ADMIN PAT ACTIVTIES (MASNONCT) LINO BENITEZ Alex Encounter Template Text not used by [place] Plan of Treatment: Future Appointments (+ 6 months) and Future Tests (+/- 45 days) The Plan of Treatment section includes future care activities for the patient from all [place] treatmentfacilities. This section includes future appointments and future orders which are active, pending or scheduled. Future Appointments This section includes appointments that were scheduled to occur 6 months from the date of the Encounter, up to a maximum of 20 appointments. The data comes from all [place] treatment facilities. Appointment Date/Time Appointment Type Appointme nt Facility Name Jan 30, 2024 09:30 [facility] Apr 21, 2024 07:28 AM [facility] Apr 27, 2024 02:30 PM AMBULATORY - NONE [facility] Social History: Smoking Status (Most current) and Tobacco Use (All prior to encounter date) This section includes the most current, and the historical, smoking and tobacco- related health factors from the [place] facility where the Encounter took place. Current Smoking Status This section includes the most current smoking, or tobacco-related health factor, from the [place] facility where the Encounter took place. Date/Time Current Smoking Status Comment Facil ity May 06, 2023 11:30 AM 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 [facility] Tobacco Use History This section includes a history of the smoking, or tobacco-related health factors, that were collected on or before the date of the Encounter. The data comes from the [place] facility where the Encounter took place. Date/Time Smoking Status/Tobacco Use Comment F acility May 06, 2023 11:30 AM VA-TOBACCO QUIT 15 YRS OR MORE [facility] Jun 04, 2022 09:00 AM 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 [facility] Jun 04, 2022 09:00 AM VA-TOBACCO QUIT 15 YRS OR MORE [facility] Jul 10, 2021 08:00 AM 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 [facility] Jul 10, 2021 08:00 AM VA-TOBACCO QUIT 5 TO < 15 YRS [facility] May 23, 2020 08:30 AM 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 [facility] May 23, 2020 08:30 AM VA-TOBACCO QUIT 5 TO < 15 YRS [facility] Mar 20, 2019 04:03 PM 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 [facility] Mar 20, 2019 04:03 PM VA-TOBACCO QUIT 5 TO < 15 YRS [facility] Mar 21, 2018 08:13 AM FORMER TOBACCO USER 7Y OR GREATE R [facility] Feb 24, 2017 09:24 AM FORMER TOBACCO USER 7Y OR GREATE R [facility] January 07, 2016 08:01 AM FORMER TOBACCO USE >1Y <7Y [facility] Feb 03, 2015 07:58 AM FORMER TOBACCO USE <1Y [facility] Feb 26, 2014 08:41 AM CURRENT TOBACCO USER [facility] May 13, 2011 01:45 PM CURRENT TOBACCO USER [facility] Advance Directives: All historical and current Section Date Range: From patient's date of to the date document was created. This section includes ALL of a patient's completed or amended [place] Advance and Rescinded Directives. The entries below indicate that a directive exists for the patient, but an actual copy is not included with this document. The data comes from all [place] facilities. Date Advance Directives Provider Source Mar 23, 2016 CLINICAL WARNING [facility] Radiology Reports: +/- 30 days of the [...] the Encounter. The data comes from all [place] treatment facilities. Date/Time Radiology Report Provider Source January 24, 2024 06:42 AM LDCT LUNG CANCER S CREENING: FLACA WEAVER [id number] -[id number] M Exm Date: JANUARY 24, 2024@06:42 Req Phys: JATINDER BENITEZ Pat Loc: [facility] PULM CHART CHECK [facility] (Req' Img Loc: CT IMAGING Service: [place] [address] (Case [id number] COMPLETE) LDCT LUNG CANCER SCREENING (CT Detailed) CPT:55699 Reason for Study: LDCT for LUNG CANCER SCREENING (ANNUAL) Clinical History: IS NOT under investigation for COVID-19 or is COVID-19 negative LDCT for LUNG CANCER SCREENING (ANNUAL) Responsible provider name and phone number to notify for critical findings if other than user placing the order and pager listed below: User placing orders pager: LAST 3: Collection DT Specimen Test Name Result Units Ref Range 05/06/2023 08:21 PLASMA CREATININE 1.1 mg/dL 0.7 - 1.2 09/01/2022 11:40 PLASMA CREATININE 1.0 mg/dL 0.7 - 1.2 08/09/2022 20:30 PLASMA!! CREATININE 1.0 mg/dL 0.7 - 1.2 05/06/2023 08:21 PLASMA .CREAT EGFR(CKD-E 72 Ref: >=60 09/01/2022 11:40 PLASMA .CREAT EGFR(CKD-E 81 Ref: >=60 08/09/2022 20:30 PLASMA!! .CREAT EGFR(CKD-E 81 Ref: >=60 !! Indicates COMMENTS AVAILABLE...Refer to Interim Lab Report. Allergies: TERAZOSIN (Mar 13, 2015) Report Status: Verified Date Reported: JANUARY 24, 2024 Date Verified: JANUARY 24, 2024 Parts Consultant E-Sig:/ES/LISA PENDLETON MD Report: EXAM: LDCT LUNG CANCER SCREENING COMPARISON: 11/12/2022 PROTOCOL: Screening protocol, low dose, non-contrast CT chest was performed in accordance with Lung-Rads 2. Additional coronal and sagittal reconstructions. MIP reconstructions were reviewed. Secondary computer-aided detection post-processing used. DOSE PARAMETERS: DLP: 67.61, mGy.cm/CTDIvol Mean: 1.86, mGy INDEX NODULE: Location: Left Lower Lobe Series: 3 Image: 174 Density: Solid Solid diameter (average): 3 mm Other characteristics: N/A Change: No significant change from 11/12/2022 Comments: None OTHER NODULES: Multiple additional pulmonary nodules have not significantly changed from prior examination. OTHER-INCIDENTAL FINDINGS: Micronodules greatest in the upper and midlungs without significant progression from 11/12/2022. Pulmonary emphysema. Bandlike scarring in the medial left upper lobe. Small amount of secretions in the left upper lobe bronchus. Severe coronary arterial calcification, suspected coronary arterial stenting. Small sliding-type hiatal hernia. Mid/distal esophageal wall appears mildly thickened, similar to prior examination. Thoracic aortic calcification. Accessory splenic tissue in the left upper quadrant. Suspected hepatic cyst on series 2 image 458. Partially visualized left adrenal adenoma as seen on CT 07/24/2021. Bilateral gynecomastia. Multilevel degenerative changes of the spine. Centrally lucent, peripherally sclerotic focus in the left 7th rib (series 2 image 371), this has a benign appearance and is not significantly changed from prior. Chronic right sided rib fracture deformities. Lucent focus in the right 6th rib on series 2 image 287, this has a benign appearance and is unchanged from prior. Impression: LUNG-RADS: 2: Benign RECOMMENDATION: One year follow-up low dose CT, if patient meets screening criteria. SIGNIFICANT INCIDENTAL FINDING (S CODE): S OTHER SIGNIFICANT FINDINGS AND RECOMMENDATIONS: Upper lobe predominant micronodules suggesting respiratory bronchiolitis, similar to prior. Primary Interpreting Staff: LISA PENDLETON MD, RADIOLOGIST (Parts Consultant) /JRT LISA PENDLETON [facility] Encounter Notes: All associated encounter notes This section contains the clinical notes associated to the Encounter. Date/Time Encounter Note(s) Provider Source January 25, 2024 11:24 AM LETTERS: LOCAL TITLE: FOLLOW UP RESULTS LETTER STANDARD TITLE: LETTERS DATE OF NOTE: JANUARY 25, 2024@11:24 ENTRY DATE: JANUARY 25, 2024@11:24:11 AUTHOR: BRITTNEY PARRY EXP COSIGNER: URGENCY: STATUS: COMPLETED [facility] [address] [place] [address] December FLACA YAMIL WEAVER [id number] [facility] [id number] Dear : Your recent chest imaging on December showed: No lung nodules that require further follow up at this time. You may now return to the routine lung cancer screening program. If you still meet criteria for screening, your PCP will let you know when it is time to be screened again. This is usually about a year from your last screening chest CT. If you are scheduled for a scan in the future and you have symptoms of a chest cold at that time, please call number on appointment letter to reschedule for four weeks after symptoms improve. If you have any further questions or problems, please contact Lung Cancer Screening staff at [phone]. BRITTNEY PARRY machine adjuster helper BRITTNEY PARRY [facility] January 25, 2024 11:19 AM PULMONARY NOTE: LOCAL TITLE: PULMONARY LUNG CANCER SCREENING STANDARD TITLE: PULMONARY NOTE DATE OF NOTE: JANUARY 25, 2024@11:19 ENTRY DATE: JANUARY 25, 2024@11:19:30 AUTHOR: BRITTNEY PARRY EXP COSIGNER: URGENCY: STATUS: COMPLETED NO LUNG NODULES or TRACKING OF NODULE NOT INDICATED per guidelines (e.g., clearly benign/some small nodules). Date of image: Date: January 24, 2024 LDCT Scan Results: Most recent LDCT scan shows a nodule for which tracking is not indicated per guidelines or radiology report. The following incidental findings were noted: Suggestive of lung infection, inflammation, or interstitial process. I am notifying the Primary Care Provider for information, and for follow-up of incidental findings, if indicated. Comment: Previously noted Plan: Continue routine annual lung cancer screening. Patient Notification of results: Results letter sent to patient. /alexi/ BRITTNEY PARRY RN Case Manager Signed: 01/25/2024 11:24 BRITTNEY PARRY [facility]
--- OUTSIDE RECORDS SUMMARY | 2024-04-23 07:09 | XMS_ITS | Encounter Summary ---
Author Name [facility] [place] [facility] [place] Address [address] [place] [address] Care Team Providers Care Hooker Machine Tender Name Role Phone JATINDER BENITEZ Primary Care [...] PART A Sep 29, 2016 PART A [id number] [phone] JUDY WEAVER PATIENT Selected Encounter This section includes the information on record at [place] for the Encounter. Date/Time Encounter Type Encounter Description Reason Provider Source December 29, 2023 08:45 AM CONFORMITY EVALUATION AUDIOLOGY ICD-10-CM H90.3 Sensorineural hearing loss, bilateral PRAFUL NIELSON IHAlex Encounter Template Text not used by [place] Assessments - Encounter Diagnoses This section includes the primary and secondary diagnoses documented for the Encounter. Date/Time Primary/Secondary Diagnosis Diagnosis Name Provider Source December 29, 2023 08:52 AM PRIMARY Sensorineural hearing loss, bilateral PRAFUL NIELSON ITTA Maeve [facility] December 29, 2023 08:52 AM SECONDARY Encounter for fitting and adjustment of hearing aid PRAFUL NIELSON [facility] December 29, 2023 08:52 AM SECONDARY Tinnitus, bilateral [place],BR ITTA K [facility] Plan of Treatment: Future Appointments (+ 6 months) and Future Tests (+/- 45 days) The Plan of Treatment section includes future care activities for the patient from all [place] [facility]. This section includes future appointments and future orders which are active, pending or scheduled. Future Appointments This section includes appointments that were scheduled to occur 6 months from the date of the Encounter, up to a maximum of 20 appointments. The data comes from all [facility] facilities. Appointment Date/Time Appointment Type Appointme nt Facility Name January 24, 2024 07:00 AM AMBULATORY - NONE [facility] Jan 30, 2024 09:30 AM AMBULATORY - MEDICINE [facility] Apr 21, 2024 07:28 AM AMBULATORY - MEDICINE [facility] Apr 27, 2024 02:30 PM AMBULATORY NONE [facility] Social History: Smoking Status (Most current) and Tobacco Use (All prior to encounter date) This section includes the most current, and the historical, smoking and tobacco- related health factors from the [place] facility where the Encounter took place. Current Smoking Status This section includes the most current smoking, or tobacco-related health factor, from the [place] facility where the Encounter took place. Date/Time Current Smoking Status Comment Facil ity May 06, 2023 11:30 AM 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 [facility] Tobacco Use History This section includes a history of the smoking, or tobacco-related health factors, that were collected on or before the date of the Encounter. The data comes from the [place] facility where the Encounter took place. Date/Time Smoking Status/Tobacco Use Comment F acility May 06, 2023 11:30 AM VA-TOBACCO QUIT 15 YRS OR MORE [facility] Jun 04, 2022 09:00 AM 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 [facility] Jun 04, 2022 09:00 AM VA-TOBACCO QUIT 15 YRS OR MORE [facility] Jul 10, 2021 08:00 AM 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 [facility] Jul 10, 2021 08:00 AM VA-TOBACCO QUIT 5 TO < 15 YRS [facility] May 23, 2020 08:30 AM 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 [facility] May 23, 2020 08:30 AM VA-TOBACCO QUIT 5 TO < 15 YRS [facility] Mar 20, 2019 04:03 PM 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 [facility] Mar 20, 2019 04:03 PM VA-TOBACCO QUIT 5 TO < 15 YRS [facility] Mar 21, 2018 08:13 AM FORMER TOBACCO USER 7Y OR GREATE R [facility] Feb 24, 2017 09:24 AM FORMER TOBACCO USER 7Y OR GREATE R [facility] January 07, 2016 08:01 AM FORMER TOBACCO USE >1Y <7Y [facility] Feb 03, 2015 07:58 AM FORMER TOBACCO USE <1Y [facility] Feb 26, 2014 08:41 AM CURRENT TOBACCO USER [facility] May 13, 2011 01:45 PM CURRENT TOBACCO USER [facility] Advance Directives: All historical and current Section Date Range: From patient's date of to the date document was created. This section includes ALL of a patient's completed or amended [place] Advance and Rescinded Directives. The entries below indicate that a directive exists for the patient, but an actual copy is not included with this document. The data comes from all [place] facilities. Date Advance Directives Provider Source Mar 23, 2016 CLINICAL WARNING [facility] Radiology Reports: +/- 30 days [...] the Encounter. The data comes from all [place] treatment facilities. Date/Time Radiology Report Provider Source January 24, 2024 06:42 AM LDCT LUNG CANCER S CREENING: MEGFLACADARCI LOBO [id number] -[id number] M Exm Date: JANUARY 24, 2024@06:42 Req Phys: JATINDER BENITEZ Loc: [facility] PULM CHART CHECK [facility] (Req' Img Loc: CT IMAGING Service: [place] [address] (Case [id number] COMPLETE) LDCT LUNG CANCER SCREENING (CT Detailed) CPT:94384 Reason for Study: LDCT for LUNG CANCER [...] 24, 2024 Date Verified: JANUARY 24, 2024 Strainer Mill Operator E-Sig:/ES/LISA PENDLETON MD Report: EXAM: LDCT LUNG CANCER SCREENING COMPARISON: 11/12/2022 PROTOCOL: Screening protocol, low dose, non-contrast CT chest was performed in accordance with Lung-Rads 2022. Additional coronal and sagittal reconstructions. MIP reconstructions [...] Primary Interpreting Staff: LISA PENDLETON MD, RADIOLOGIST (Strainer Mill Operator) /JRT LISA PENDLETNO [facility] Encounter Notes: All associated encounter notes This section contains the clinical notes associated to the Encounter. Date/Time Encounter Note(s) Provider Source December 29, 2023 07:36 AM AUDIOLOGY NOTE: LOCAL TITLE: AUDIOLOGY CLINIC NOTE STANDARD TITLE: AUDIOLOGY NOTE DATE OF NOTE: DECEMBER 29, 2023@07:36 ENTRY DATE: DECEMBER 29, 2023@07:36:52 AUTHOR: CAROLYN NIELSON EXP COSIGNER: URGENCY: STATUS: COMPLETED DIAGNOSIS: Encounter for Fitting and Adjustment of Hearing Aid Sensorineural loss, bilateral Tinnitus, bilateral REASON FOR VISIT: Therapeutic - hearing aid fitting, conformity evaluation (real-ear measures), orientation and counseling LOCATION OF VISIT (ROOM NUMBER): [id number] was seen for Hearing Aid [place] Appointment HISTORY: has never used hearing aids previously. HEARING AIDS (Right) fit: 12/29/2023 Make: Phonak Model: Audeo L90-RL LEONA Serial Numbers R: [id number] Customer Technical Services Manager/Slim Tube Size: 2M Dome/Earmold: canal cShell ACCESSORIES: Android (jeferson only) OTOSCOPY: Both Ears: Free of excessive cerumen. Normal anatomy bilaterally ACTION: Hearing aid(s) are a good physical fit. Feedback test was completed and feedback market manager was activated. Hearing aid(s) were programmed to prescriptive targets, which were derived from the Veterans hearing loss. CONFORMITY EVAUATION (VERIFICATION OF HEARING AID FUNCTION): Real Ear Aided Response (REAR) was measured using the Verifit 2 system using NAL-NL2 targets. Most targets were met. Loudness intolerance was measured using a 85 dB MPO tone sweep and the patient was able to tolerate the output of the hearing device(s). Veterans subjective impressions were considered while adjusting the hearing aid(s). Decreased gain to 90% and occlusion control to mild per comfort. reported good sound quality and equal balance between ears after adjustments were made. [place] reported a comfortable fit. [place] demonstrated understanding of the new aid(s) and was able to insert the hearing aid(s) appropriately, as well as manipulate the volume control and charging unit. Indicator tones were demonstrated for . Volume control enabled- Synchronized Program button enabled Veterans hearing aid(s) were paired to the patient's jeferson. The code enforcement supervisor phone application was reviewed in detail (volume control, program changes, settings, etc.) and demonstrated in the office. He is not interested in connecting for phone calls. was counseled (30 minutes) regarding: -Full-time hearing aid use and acclimating to amplification -Realistic expectations for hearing aid use -Appropriate communication strategies -How to charge the hearing aids -Location and operation of all controls -Proper care and maintenance -Protecting hearing in high noise levels -Warning about battery ingestion -[facility] and Call Center contact information and services, including the trial period. Prognosis for success is good, given the Veterans response to the hearing aid(s). Hearing aid(s) were issued and supplies were mailed. [place] was provided with a copy of [place] issuance form 2477b. PLAN: [place] will return to clinic for service as needed. Patient is in agreement with this plan. /alexi/ CAROLYN NIELSON NUTRITIONIST PUBLIC HEALTH Signed: 12/29/2023 08:55 CAROLYN NIELSON [facility]
--- OUTSIDE RECORDS SUMMARY | 2024-04-23 07:09 | XMS_ITS | Encounter Summary ---
Author Name [facility] [place] [facility] [place] Address [address] [place] [address] Care Team Providers Care Forestry Crew Chief Name Role Phone JATINDER BENITEZ Primary Care [...] PART A Sep 29, 2016 PART A [id number] [phone] JUDY WEAVER PATIENT Selected Encounter This section includes the information on record at [place] for the Encounter. Date/Time Encounter Type Encounter Description Reason Provider Source Nov 29, 2023 07:45 AM TYMPANOMETRY AUDIOLOGY ICD-10-CM Z01.118 Encntr for exam of ears and hearing w oth abnormal findings STEVE NIELSON K IHE Encounter Template Text not used by [place] Assessments - Encounter Diagnoses This section includes the primary and secondary diagnoses documented for the Encounter. Date/Time Primary/Secondary Diagnosis Diagnosis Name Provider Source Nov 29, 2023 08:03 AM PRIMARY Encntr for exam of ears and hearing w oth abnormal findings PRAFUL NIELSONA K [facility] Nov 29, 2023 08:03 AM SECONDARY Sensorineural hearing loss, bilateral [place],BR ITTA K [facility] Nov 29, 2023 08:03 AM SECONDARY Tinnitus, bilateral [place],BR ITTA K [facility] Plan of Treatment: Future Appointments (+ 6 months) and Future Tests (+/- 45 days) The Plan of Treatment section includes future care activities for the patient from all [place] [facility]. This section includes future appointments and [...] 29, 2023 08:45 AM AMBULATORY - SURGERY [place] [facility] January 24, 2024 07:00 AM AMBULATORY - NONE [facility] Jan 30, 2024 09:30 AM AMBULATORY - MEDICINE [facility] Apr 21, 2024 07:28 AM AMBULATORY - MEDICINE [facility] Apr 27, 2024 02:30 PM AMBULATORY - NONE [facility] Social History: Smoking Status (Most [...] 06, 2023 11:30 AM 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 [facility] Tobacco Use History This section includes a history of the smoking, or tobacco-related health factors, that were collected on or before the date of the Encounter. The data comes from the [place] facility where the Encounter took place. Date/Time Smoking Status/Tobacco Use Comment F acility May 06, 2023 11:30 AM VA-TOBACCO QUIT 15 YRS OR MORE [facility] Jun 04, 2022 09:00 AM 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 [facility] Jun 04, 2022 09:00 AM VA-TOBACCO QUIT 15 YRS OR MORE [facility] Jul 10, 2021 08:00 AM 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 [facility] Jul 10, 2021 08:00 AM VA-TOBACCO QUIT 5 TO < 15 YRS [facility] May 23, 2020 08:30 AM 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 [facility] May 23, 2020 08:30 AM VA-TOBACCO QUIT 5 TO < 15 YRS [facility] Mar 20, 2019 04:03 PM 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 [facility] Mar 20, 2019 04:03 PM [place]-TO[place] QUIT 5 TO < 15 YRS [facility] Mar 21, 2018 08:13 AM FORMER TOBACCO USER 7Y OR GREATE R [facility] Feb 24, 2017 09:24 AM FORMER TOBACCO USER 7Y OR GREATE R [facility] January 07, 2016 08:01 AM FORMER TOBACCO USE >1Y <7Y [facility] Feb 03, 2015 07:58 AM FORMER TOBACCO USE <1Y [facility] Feb 26, 2014 08:41 AM CURRENT TOBACCO USER [facility] May 13, 2011 01:45 PM CURRENT TOBACCO USER [facility] Advance Directives: All historical and [...] Provider Source Mar 23, 2016 CLINICAL WARNING [place] [facility] Encounter Notes: All associated encounter notes This section contains the clinical notes associated to the Encounter. Date/Time Encounter Note(s) Provider Source Nov 29, 2023 08:06 AM SUICIDE PREVENTION RISK ASSESSMENT SCREENING NOTE: LOCAL TITLE: [place] SCREENING NOTE STANDARD TITLE: SUICIDE PREVENTION RISK ASSESSMENT SCREENING NOT DATE OF NOTE: NOV 29, 2023@08:06 ENTRY DATE: NOV 29, 2023@08:06:13 AUTHOR: CAROLYN NIELSON COSIGNER: URGENCY: STATUS: COMPLETED C-SSRS Screening Cochran-Suicide Severity Rating Scale (C-SSRS Screener) 1. Over the past month, have you wished you were or wished you could go to sleep and not wake up? No 2. Over the past month, have you had any actual thoughts of killing yourself? No 3. Over the past month, have you been thinking about how you might do this? Response not required due to responses to other questions. 4. Over the past month, have you had these thoughts and had some intention of acting on them? Response not required due to responses to other questions. 5. Over the past month, have you started to work out or worked out the details of how to kill yourself? Response not required due to responses to other questions. 6. If yes, at any time in the past month did you intend to carry out this plan? Response not required due to responses to other questions. 7. In your lifetime, have you ever done anything, started to do anything, or prepared to do anything to end your life (for example, collected pills, obtained a gun, gave away valuables, went to the roof but didn't jump)? No 8. If YES, was this within the past 3 months? Response not required due to responses to other questions. /alexi/ CAROLYN NIELSON OPTOMETRIC TECHNOLOGIST Signed: 11/29/2023 08:19 CAROLYN NIELSON [facility] Nov 29, 2023 07:19 AM AUDIOLOGY NOTE: LOCAL TITLE: AUDIOLOGY CLINIC NOTE STANDARD TITLE: AUDIOLOGY NOTE DATE OF NOTE: NOV 29, 2023@07:19 ENTRY DATE: NOV 29, 2023@07:19:32 AUTHOR: CAROLYN NIELSON EXP COSIGNER: URGENCY: STATUS: COMPLETED DIAGNOSIS: Encounter for examination of ears and hearing Sensorineural loss, bilateral Tinnitus, bilateral REASON FOR VISIT: HEARING EVALUATION AND HEARING AID SELECTION, 60 MINUTES: [place] was seen in the clinic today for a comprehensive audiologic evaluation, hearing aid selection, and counseling. LOCATION OF VISIT (ROOM NUMBER): [id number] The was last seen in this clinic on 10/27/2022. The is NOT Service Connected for Hearing Loss / Tinnitus. was unaccompanied. The has never worn hearing aids before. HISTORY: [place] seen reporting difficulties hearing, particularly when people are speaking on his right side and in a crowd. He has a history of asymmetric sensorineural hearing loss and tinnitus. He was seen last year and had otitis externa, which was treated by ENT. He noted he is occasionally lightheaded when getting up. He is interested in pursuing a hearing aid for the right ear. reported he had more noise exposure to the right ear in the . PROCEDURES: OTOSCOPY: Bilaterally: Free of excessive cerumen. Normal appearing TM's and canals. TYMPANOMETRY: RIGHT EAR: Type A Pressure: Normal Compliance: Normal Volume: Normal LEFT EAR: Type A Pressure: Normal Compliance: Normal Volume: Normal AUDIOMETRICS: Air conduction, bone conduction and speech testing were completed bilaterally. Transducer: Insert phones, Circumaural headphones Reliability: Good RIGHT EAR (Hz) [phone] 0627 1500 2000 3000 4000 6000 8000 Air: See Audiogram Display under Tools / AUDIOLOGY / ROES or see SKINNY Database Bone: See Audiogram Display under Tools / AUDIOLOGY / ROES or see SKINNY Database LEFT EAR (Hz) 250 770 057 0090 1500 2000 3000 4000 6000 8000 Air: See Audiogram Display under Tools / AUDIOLOGY / ROES or see SKINNY Database Bone: See Audiogram Display under Tools / AUDIOLOGY / ROES or see SKINNY Database - All thresholds are in dB HL * = Masked Threshold SRT: Spondees Right: 30 dB HL Left: 20 dB HL Pure tone results were consistent with speech collections attorney thresholds. WORD RECOGNITION: / - word list RIGHT EAR: 96% Level: 70* dB LEFT EAR: 96% Level: 60* dB SUMMARY: Hearing is improved some in the left ear, and improved at 8000 Hz in the right ear as compared to the last examination. Asymmetries are noted at most frequencies, worse in the right ear. RIGHT EAR: Mild sloping to moderate primarily sensorineural hearing loss with excellent word recognition. An air-bone gap is noted at 250 Hz. Tympanometry is consistent with normal eardrum movement. LEFT EAR: Normal sloping to moderate sensorineural hearing loss with excellent word recognition. Tympanometry is consistent with normal eardrum movement. AMPLIFICATION: - is a good candidate for hearing aid use, particularly for the right ear. - [place] was counseled on his type, degree and configuration of hearing loss. - The 's hearing loss has progressed currently to the extent that it affects full participation in the provision of health care as noted today in our discussions. Hearing aids are medically indicated to treat the 's auditory conditions. - Different styles/technologies were reviewed with consideration given to veterans listening situations and lifestyle needs. He is interested in a rechargeable LEONA-style hearing aid for the right ear only at this time. He has an Android phone and is likely not interested in using Bluetooth. - The has good vision, memory, and dexterity for hearing aid use. - counseled on realistic expectations associated with adjusting to hearing aids, use of the devices, VA procedures and trial period. - [place] counseled on effective communication strategies. - counseled on tinnitus management. - Earmold impression taken of the right ear without complication. Otoscopy normal post earmold impression procedure, AD. - Hearing aid ordered: Phonak Audeo L90-RL LEONA RIGHT hearing aid (sandalwood, Size 2xM patient scheduler, canal cShell, AOVs, Wax traps, removal strings) were selected and ordered today. PLAN: - [place] will be scheduled for a 60-minute hearing aid fitting appointment. - Monitor hearing for increase in asymmetry of hearing loss and/or word recognition scores. If otologic symptoms arise or asymmetry increases, ENT referral may be warranted at this time. - PATIENT IS IN AGREEMENT WITH THIS PLAN. /alexi/ CAROLYN NIELSON OPTOMETRIC TECHNOLOGIST Signed: 11/29/2023 08:19 CAROLYN NIELSON [facility]
--- OUTSIDE RECORDS SUMMARY | 2024-04-23 07:09 | XMS_ITS | Encounter Summary ---
Author Name [facility] [place] [facility] [place] [facility] [place] Address [address] [place] [address] Care Team Providers Care Sodder Name Role Phone JATINDER CABRERA Primary Care [...] PART A Sep 29, 2016 PART A [phone] JUDY WEAVER PATIENT Selected Encounter This section includes the information on record at [place] for the Encounter. Date/Time Encounter Type Encounter Description Reason Provider Source Sep 21, 2023 07:15 AM MOD SED SAME PHYS/QHP 5/>YRS GI ENDOSCOPY ICD-10-CM K63.89 Other specified diseases of intestine SADIA ZAIDI Encounter Template Text not used by [place] Assessments - Encounter Diagnoses This section includes the primary and secondary diagnoses documented for the Encounter. Date/Time Primary/Secondary Diagnosis Diagnosis Name Provider Source Sep 21, 2023 12:55 PM PRIMARY Other specified diseases of intestine [facility] Sep 21, 2023 12:55 PM SECONDARY Abnormal findings on dx imaging of prt digestive tract [facility] Sep 21, 2023 12:55 PM SECONDARY Dvrtclos of lg int w/o perforation or abscess w/o bleeding [facility] Sep 21, 2023 12:55 PM SECONDARY 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 [facility] Sep 21, 2023 12:55 PM SECONDARY Other hemorrhoids [facility] Sep 21, 2023 12:55 PM SECONDARY Polyp of colon [facility] Plan of Treatment: Future Appointments (+ 6 months) and Future Tests (+/- 45 days) The Plan of Treatment section includes future care activities for the patient from all [facility]. This section includes future appointments and future orders which are active, pending or scheduled. Future Appointments This section includes appointments that were scheduled to occur 6 months from the date of the Encounter, up to a maximum of 20 appointments. The data comes from all [facility] facilities. Appointment Date/Time Appointment Type Appointme nt Facility Name Oct 05, 2023 02:00 PM AMBULATORY - MEDICINE [facility] Nov 29, 2023 07:45 AM AMBULATORY - SURGERY [facility] December 29, 2023 08:45 AM AMBULATORY - SURGERY [facility] January 24, 2024 07:00 AM AMBULATORY - NONE [facility] Jan 30, 2024 09:30 AM AMBULATORY - MEDICINE [facility] Social History: Smoking Status (Most current) and Tobacco Use (All prior to encounter date) This section includes the most current, and the historical, smoking and tobacco- related health factors from the [place] facility where the Encounter took place. Current Smoking Status This section includes the most current smoking, or tobacco-related health factor, from the [place] facility where the Encounter took place. Date/Time Current Smoking Status Comment Facil ity May 06, 2023 11:30 AM 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 [facility] Tobacco Use History This section includes a history of the smoking, or tobacco-related health factors, that were collected on or before the date of the Encounter. The data comes from the [place] facility where the Encounter took place. Date/Time Smoking Status/Tobacco Use Comment F acility May 06, 2023 11:30 AM [place]-TOBACCO QUIT 15 YRS OR MORE [facility] Jun 04, 2022 09:00 AM 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 [facility] Jun 04, 2022 09:00 AM VA-TOBACCO QUIT 15 YRS OR MORE [facility] Jul 10, 2021 08:00 AM 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 [facility] Jul 10, 2021 08:00 AM VA-TOBACCO QUIT 5 TO < 15 YRS [facility] May 23, 2020 08:30 AM 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 [facility] May 23, 2020 08:30 AM VA-TOBACCO QUIT 5 TO < 15 YRS [facility] Mar 20, 2019 04:03 PM 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 [facility] Mar 20, 2019 04:03 PM VA-TOBACCO QUIT 5 TO < 15 YRS [facility] Mar 21, 2018 08:13 AM FORMER TOBACCO USER 7Y OR GREATE R [facility] Feb 24, 2017 09:24 AM FORMER TOBACCO USER 7Y OR GREATE R [facility] January 07, 2016 08:01 AM FORMER TOBACCO USE >1Y <7Y [facility] Feb 03, 2015 07:58 AM FORMER TOBACCO USE <1Y [facility] Feb 26, 2014 08:41 AM CURRENT TOBACCO USER [facility] May 13, 2011 01:45 PM CURRENT TOBACCO USER [facility] Advance Directives: All historical and current Section Date Range: From patient's date of to the date document was created. This section includes ALL of a patient's completed or amended [place] Advance and Rescinded Directives. The entries below indicate that a directive exists for the patient, but an actual copy is not included with this document. The data comes from all [facility]. Date Advance Directives Provider Source Mar 23, 2016 CLINICAL WARNING [facility] Pathology Reports: +/- 30 days of the [...] the Encounter. The data comes from all [place] treatment facilities. Date/Time Pathology Report Provider Source Sep 26, 2023 03:19 PM LR SURGICAL PATHOL OGY REPORT: LOCAL TITLE: LR SURGICAL PATHOLOGY REPORT STANDARD TITLE: PATHOLOGY REPORT DATE OF NOTE: SEP 26, 2023@15:19:48 ENTRY DATE: SEP 26, 2023@15:19:48 AUTHOR: ZAC TAM EXP COSIGNER: URGENCY: STATUS: COMPLETED $APHDR Reporting Lab: [facility] [CLIA# [id number]] [address] [place] [address] - - - - - - - [...] - - - PATHOLOGY REPORT Accession No. [id number] - - - - - - [...] No evidence of high-grade dysplasia or malignancy /es/ ZAC TAM STAFF PATHOLOGIST, PATHOLOGY & LABORATORY [facility] Signed Sep 26, 2023@15:19 Performing Laboratory: Surgical Pathology Report Performed By: [facility] [CLIA# [id number]] [place] [address] $FTR - - - - - - [...] - - FLACA WEAVER STANDARD FORM 515 ID:[id number] SEX:M :1950 AGE: 72 LOC:[id number] PCP: Jatinder Cabrera /alexi/ ZAC TAM STAFF PATHOLOGIST, PATHOLOGY & LABORATORY [facility] Signed: 09/26/2023 15:19 ZAC TAM [facility] Encounter Notes: All associated encounter notes This section contains the clinical notes associated to the Encounter. Date/Time Encounter Note(s) Provider Source Sep 27, 2023 03:27 PM LETTERS: LOCAL TITLE: FOLLOW UP RESULTS LETTER STANDARD TITLE: LETTERS DATE OF NOTE: SEP 27, 2023@15:27 ENTRY DATE: SEP 27, 2023@15:27:09 AUTHOR: SADIA ZAIDI COSIGNER: URGENCY: STATUS: COMPLETED [facility] [address] [place] [address] Aug FLACA YAMIL WEAVER [address] [facility] [id number] Dear : I am writing to inform you of the test results performed Aug for the following: Colonoscopy Results of microscopic examination: Polyp - Adenoma Normal tissue Explanation of pathology results: An adenoma is a type of polyp that if left in the colon, could over a period of years, grow larger and/or even turn into a cancer, although most do not. After reviewing your results I do not recommend any future colon cancer screening because of your age and/or other medical conditions. Follow up appointment in GI/liver clinic on 10/05 at 1400. While you almost certainly have had diverticulitis before, you mentioned to me before the procedure that you didn't think that it explained all the digestive symptoms you are having - I agree. The more generalized pain and cramping you described, relieved by a hot bath, is quite consistent with a condition called cannabinoid hyperemesis (hyperemesis means lots of vomiting, though some people don't have nausea/vomiting, just pain). Given the intensity and duration of your marijuana use, you definitely are at risk of it - I'd like you to stop all marijuana use for several months to see how your symptoms respond. If you have any questions, the GI department can be called between the hours of 7:30 a.m. and 3:30 p.m., Tuesday - Tuesday. The GI department can be reached at or toll free at [phone]. Sincerely, SADIA ZAIDI MD GASTROENTEROLOGY STAFF PHYSICIAN SADIA ZAIDI [facility] Sep 21, 2023 08:15 AM GASTROENTEROLOGY PREPROCEDURE NOTE: LOCAL TITLE: GI PRE-PROCEDURE NOTE STANDARD TITLE: GASTROENTEROLOGY PREPROCEDURE NOTE DATE OF NOTE: SEP 21, 2023@08:15 ENTRY DATE: SEP 21, 2023@08:15:25 AUTHOR: SADIA ZAIDI EXP COSIGNER: URGENCY: STATUS: COMPLETED Gastroenterology Pre-procedure Assessment: Procedure planned: Colonoscopy Pre-Op Diagnosis or Indication for Procedure: Abnormal imaging Problem list Active problems - Computerized Problem List is [...] . No additional CRC surveillance recommended by golf tournament consultant. 9. Decreased vitamin D - 02.24.2017 [...] Median N.). 01.15.2016 Abnormal RUE EMG(Median N.). 15. Steatosis of liver - By 02.13.[address] 16. Diverticular disease - By 02.13.[address] 03.14.2020 OSH(ED [place], [place]): Pt. Declined Admission. 03.14.2020 CT with Mild Sigmoid diverticulitis. 04.23.2020 ED([facility]): Declined admission. 17. 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 18. Ex-tobacco user 19. Impaired Fasting Glucose (SCT [id number]) - 02.26.2014 A1c 5.8%. 20. Adrenal mass [...] 24. Hiatal hernia 25. Shoulder Pain (SCT [id number]) 26. Trigger finger 27. [facility] - [facility] Primary: Dr. Cathi Simeon, [facility], [place] [address]. Active Outpatient Medications (including Supplies): Active Outpatient Medications [...] ONE-HALF TABLET BY MOUTH ACTIVE EVERY DAY Allergies: TERAZOSIN (Mar 13, 2015) Mallampati Score: 2: (Visibility of hard and soft palate, upper portion of tonsils and uvula) Airway: Within normal limits Exam: Heart and lungs within normal limits Lab PT____ INR____ HCT: 41.0 (09/01/22) 48.0 (05/06/23) HGB: 14.4 (09/01/22) 16.5 (05/06/23) MCH: 31.6 (09/01/22) 32.7 (05/06/23) MCHC: 35.1 (09/01/22) 34.4 (05/06/23) MCV: 89.9 (09/01/22) 95.0 (05/06/23) MPV: 10.5 (09/01/22) 11.2 (05/06/23) PLT: 236 (09/01/22) 187 (05/06/23) RBC: 4.56 (09/01/22) 5.05 (05/06/23) RDW: 14.3 (09/01/22) 14.6 (05/06/23) WBC: 12.53 (09/01/22) 9.88 (05/06/23) Other Lab tests: [place] [employer]esthes[employer] (ASA) Classification: III SPN - Selected Prog Notes No data available for: LIFE-SUSTAINING TREATMENT Sedation Plan: Moderate sedation I have reviewed the patient's pre-procedure baseline level of consciousness, current vital signs, time and nature of last oral intake, and any previous adverse experiences with sedation as documented in the [facility] note. The procedure report can be viewed in the Reports tab-->procedures or in [facility]. /es/ SADIA ZAIDI MD GASTROENTEROLOGY STAFF PHYSICIAN Signed: 09/21/2023 08:16 SADIA ZAIDI [facility]
--- OUTSIDE RECORDS SUMMARY | 2024-04-23 07:10 | XMS_ITS | Encounter Summary ---
Author Name [facility] [place] [facility] [place] Address [address] [place] [address] Care Team Providers Care Catalog Library Assistant Name Role Phone JATINDER CABRERA Primary Care [...] PART A Sep 29, 2016 PART A [id number] JUDY WEAVER PATIENT Selected Encounter This section includes the information on record at CT for the Encounter. 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 Date/Time Primary/Secondary Diagnosis Diagnosis Name Provider Source Jan 30, 2024 09:26 AM PRIMARY Aths[place] heart disease of [place] coronary artery w/o GOLDIE Iqbal [facility] Jan 30, 2024 09:26 AM SECONDARY Encounter for immunization GOLDIE CABRERA [facility] Plan of Treatment: Future Appointments (+ 6 months) and Future Tests (+/- 45 days) The Plan of Treatment section includes future care activities for the patient [facility] This section includes future appointments and future orders which are active, pending or scheduled. Future Appointments This section includes appointments that were scheduled to occur 6 months from the date of the Encounter, up to a maximum of 20 appointments. The data comes from all [place] treatment facilities. Appointment Date/Time Appointment Type Appointme nt Facility Name Apr 21, 2024 07:28 AM [facility] Apr 27, 2024 02:30 PM [facility] Vital Signs: All taken on the encounter date This section contains inpatient and outpatient Vital Signs collected on the date of the Encounter. Date/Time Temperature Pulse Blood Pressure Respiratory Rate SP02 Pain Height Weight Body Mass Index Source Jan 30, 2024 08:59 AM 97.7 74 104/63 16 97 0 220.2 31 [facility] Immunizations: All administered on the encounter date This section contains immunizations associated to the Encounter. Immunization Series Date Issued Reaction Comments COVID-19 (PFIZER), MRNA, LNP -S, PF, CORINA-SUCROSE, 30 MCG/0.3 ML (AGES 12+ YEARS) Jan 30, 2024 Social History: Smoking Status (Most current) and Tobacco Use (All prior to encounter date) This section includes the most current, and the historical, smoking and tobacco- related health factors from the [place] facility where the Encounter took place. Current Smoking Status This section includes the most current smoking, or tobacco-related health factor, from the [place] facility where the Encounter took place. Date/Time Current Smoking Status Comment Facil ity May 06, 2023 11:30 AM 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 [facility] Tobacco Use History This section includes a history of the smoking, or tobacco-related health factors, that were collected on or before the date of the Encounter. The data comes from the CT facility where the Encounter took place. Date/Time Smoking Status/Tobacco Use Comment F acility May 06, 2023 11:[address]-TOBACCO QUIT 15 YRS OR MORE [facility] Jun 04, 2022 09:00 AM 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 [facility] Jun 04, 2022 09:00 AM VA-TOBACCO QUIT 15 YRS OR MORE [facility] Jul 10, 2021 08:00 AM 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 [facility] Jul 10, 2021 08:00 AM VA-TOBACCO QUIT 5 TO < 15 YRS [facility] May 23, 2020 08:30 AM 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 [facility] May 23, 2020 08:30 AM VA-TOBACCO QUIT 5 TO < 15 YRS [facility] Mar 20, 2019 04:03 PM 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 [facility] Mar 20, 2019 04:03 PM VA-TOBACCO QUIT 5 TO < 15 YRS [facility] Mar 21, 2018 08:13 AM FORMER TOBACCO USER 7Y OR GREATE R [facility] Feb 24, 2017 09:24 AM FORMER TOBACCO USER 7Y OR GREATE R [facility] January 07, 2016 08:01 AM FORMER TOBACCO USE >1Y <7Y [facility] Feb 03, 2015 07:58 AM FORMER TOBACCO USE <1Y [facility] Feb 26, 2014 08:41 AM CURRENT TOBACCO USER [facility] May 13, 2011 01:45 PM CURRENT TOBACCO USER [facility] Advance Directives: All historical and current Section Date Range: From patient's date of to the date document was created. This section includes ALL of a patient's completed or amended CT Advance and Rescinded Directives. The entries below indicate that a directive exists for the patient, but an actual copy is not included with this document. The data comes from all [facility]. Date Advance Directives Provider Source Mar 23, 2016 CLINICAL WARNING PARULTIM Onofre JAIME ECHEVARRIAGIDEON [facility] Radiology Reports: +/- 30 days of the [...] the Encounter. The data comes from all CT treatment facilities. Date/Time Radiology Report Provider Source January 24, 2024 06:42 AM LDCT LUNG CANCER S CREENING: MEGFLACA YAMIL [id number] -[id number] M Exm Date: JANUARY 24, 2024@06:42 Req Phys: JATINDER CABRERA Pat Loc: [facility] PULM CHART CHECK [facility] (Req' Img Loc: CT IMAGING Service: [place] [address] (Case 128 COMPLETE) LDCT LUNG CANCER SCREENING (CT Detailed) CPT:83250 Reason for Study: LDCT for LUNG CANCER SCREENING (ANNUAL) Clinical History: [place] IS NOT under investigation for COVID-19 or [...] 24, 2024 Date Verified: JANUARY 24, 2024 Overlay Plastician E-Sig:/ES/LISA PENDLETON MD Report: EXAM: LDCT LUNG [...] Primary Interpreting Staff: LISA PENDLETON MD, RADIOLOGIST (Overlay Plastician) /LISA CARDONA [facility] Encounter Notes: All associated encounter notes This section contains the clinical notes associated to the Encounter. Date/Time Encounter Note(s) Provider Source Jan 30, 2024 09:20 AM INTERNAL MEDICINE NOTE: LOCAL TITLE: MEDICINE CLINIC NOTE STANDARD TITLE: INTERNAL MEDICINE NOTE DATE OF NOTE: JAN 30, 2024@09:20 ENTRY DATE: JAN 30, 2024@09:20:11 AUTHOR: JATINDER CABRERA EXP COSIGNER: URGENCY: STATUS: COMPLETED Assessment and plan: --> CC PCP Dr Steven Sheth--> pt states he is no longer seeing CAD s/p stenting RCA 2016 h/o heart failure (2015 EF 55-60 w/ no sig diastolic dysfunction) HTN/Lipids -current regimen asa 81 mg qday (adherance is hit and miss) ntg sl prn Atorvastatin 20 mg QDay Empagliflozin 12.5 mg QDay Lasix 20 mg po QDay prn Isosorbide mono ER 30 mg QDay Lis/HCTZ 5/6.25 mg QDay Spironolactone 12.5 mg QDay Chronic intermittent LLQ pain Intermittent melena (resolved today) Anemia NOS IBS h/o recurrent diverticulitis Chronic constipation Cannabinoid Hyperemesis Liver steatosis (CT finding 2018) -CLP 2019 reassuring (mild diverticulosis noted) -in ER Aug 2022 w/ LLQ pain and referred to GI given CT findings (see imaging). Treated w/ augmentin for presumed diverticulitis. -saw GI Aug 2022: CLP recommended to rule out malignancy, stopped dicyclomine d/t constipation. -CLP Aug 2023: diverticulosis, adenoma. 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 Asymptomatic -repeat imaging in one year (Aug 2023). Ordered -possible HG stenosis noted in [place]. 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 2018) in December 2024 -spirometry normal Jun 2023 Chronic low back pain -pt reports 3 back surgeries in his 20s. -XRays 05/21 c/w prior surgery Decreased hearing -encouraged otc loratadine, cetirizine, fexofenadine etc -encouraged self-rfl to audiology for testing Health maintenance -CLP 2023, no further routine screening per GI -PSA nml 2021, has aged out of ongoing routine screening -Lung nodule surveillance dced 2021 -LDCT for cancer screen due 12/2024 -BCIAA screen due Aug 2023, ordered and pending RTC in one year for annual w/ CMP CBC A1c lipids prior = Nurse's notes reviewed from today. FLACA WEAVER is a 72 year old MALE with the following Chief complaint: no acute complaints would like all scripts changed to 90 days if able fiber has helped GI symptoms considerably Family History: negative for CAD or prostate [...] . No additional CRC surveillance recommended by senior solutions consultant. 9. Decreased vitamin D - 02.24.2017 [...] - By 02.13.[address] 03.14.2020 OSH(ED [place], [place]): Pt. Declined Admission. 03.14.2020 CT with Mild Sigmoid diverticulitis. 04.23.2020 ED(OSH): Declined admission. 17. 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 18. Ex-tobacco user 19. Impaired Fasting Glucose [facility] [id number]) - 02.26.2014 A1c 5.8%. 20. Adrenal mass [...] recommended. 24. Hiatal hernia 25. Shoulder Pain ([facility] [id number]) 26. Trigger finger 27. [facility] Primary Care - [facility] Primary: Dr. Cathi Simeon, [place] [address]. Allergies: TERAZOSIN (Mar 13, 2015) EXAM: VS: Temp: 97.7 F [36.5 C] (01/30/2024 08:59) BP: 104/63 (01/30/2024 08:59) Pulse:74 (01/30/2024 08:59) Resp: 16 (01/30/2024 08:59) Pain: 0 (01/30/2024 08:59) Weight: WEIGHTS IN LAST 6 MONTHS: 220.2 (JAN 30, 2024@08:59:46) 225 (OCT 05, 2023@13:39:12) General: NAD, Alert HEENT: PERRL EOMI Neck: no carotid bruit Lungs: CTAB Heart: RRR Abd: Soft NABS Gait: stable and independant Medication Reconciliation: Education Evaluations *Was medication education [...] were also reviewed/updated for accuracy. Allergies/ADR from [facility] may not display in CPRS. Use JLV MRT5 - Allergies/ADRs FACILITY ALLERGY/ADR -------- No Remote Allergy/ADR Data available for this patient [facility] TERAZOSIN Active and Recently Outpatient Medications (including Supplies): Issue Date Status Last Fill Active Outpatient Medications Refills Expiration 1) ATORVASTATIN CALCIUM 40MG TAB Qty: 45 ACTIVE (S) Issu:11-17-23 for 90 days Sig: TAKE ONE-HALF TABLET Refills: 0 Last:04-03-24 BY MOUTH AT BEDTIME FOR CHOLESTEROL Expr:07-15-24 2) EMPAGLIFLOZIN 25MG TAB Qty: 45 for 90 ACTIVE Issu:01-16-24 days Sig: TAKE ONE-HALF TABLET BY Refills: 3 Last:01-17-24 MOUTH EVERY DAY Expr:01-16-25 3) FUROSEMIDE 20MG TAB Qty: 90 for 90 days ACTIVE (S) Issu:01-16-24 Sig: TAKE ONE TABLET BY MOUTH EVERY Refills: 2 Last:04-06-24 DAY NEEDED FOR EXCESS FLUID TAKE Expr:01-16-25 ONE TABLET FOR WEIGHT GAIN OF 3 POUNDS OVERNIGHT OR MORE THAN 5 POUNDS IN 1 WEEK OR LEG SWELLING 4) HCTZ 12.5/LISINOPRIL 10MG TAB Qty: 45 ACTIVE (S) Issu:11-21-23 for 90 days Sig: TAKE ONE HALF TABLET Refills: 1 Last:05-09-24 BY MOUTH EVERY DAY FOR BLOOD PRESSURE Expr:11-21-24 5) ISOSORBIDE MONONITRATE 30MG SA TAB Qty: ACTIVE (S) Issu:12-19-23 90 for 90 days Sig: TAKE ONE TABLET Refills: 2 Last:03-09-24 BY MOUTH EVERY DAY FOR CHEST PAIN Expr:12-19-24 6) NITROGLYCERIN 0.4MG SL TAB Qty: 100 for ACTIVE Issu:11-21-23 30 days Sig: DISSOLVE ONE TABLET Refills: 1 Last:11-21-23 UNDER THE TONGUE THREE TIMES A DAY Expr:11-21-24 NEEDED CHEST PAIN FOR CHEST PAIN * MAY REPEAT EVERY 5 MINUTES--NO MORE THAN 3 TOTAL Issue Date Status Last Fill Pending Outpatient Medications Refills Expiration 1) PSYLLIUM ORAL PWD Qty: 1170 Sig: TAKE PENDING 2 TEASPOONSFUL BY MOUTH EVERY DAY Refills: 0 2) SPIRONOLACTONE 25MG TAB Qty: 45 Sig: PENDING TAKE ONE-HALF TABLET BY MOUTH EVERY Refills: 0 DAY Issue Date Status Last Fill Inactive Outpatient Medications Refills Expiration 1) DICYCLOMINE HCL 10MG CAP Qty: 20 for 10 DISCONTINUED Issu:10-25-22 days Sig: TAKE ONE CAPSULE BY MOUTH Refills: 2 Last:10-26-22 TWICE A DAY NEEDED FOR ABDOMINAL Expr:10-26-23 PAIN 2) EMPAGLIFLOZIN 25MG TAB Qty: 45 for 90 Issu:10-25-22 days Sig: TAKE ONE-HALF TABLET BY Refills: 0 Last:10-17-23 MOUTH EVERY DAY Expr:10-26-23 3) FUROSEMIDE 20MG TAB Qty: 90 for 90 days Issu:10-25-22 Sig: TAKE ONE TABLET BY MOUTH EVERY Refills: 0 Last:09-19-23 DAY NEEDED TAKE ONE TABLET FOR Expr:10-26-23 WEIGHT GAIN OF 3 POUNDS OVERNIGHT OR MORE THAN 5 POUNDS IN 1 WEEK OR LEG SWELLING 4) HCTZ 12.5/LISINOPRIL 10MG TAB Qty: 45 Issu:10-25-22 for 90 days Sig: TAKE ONE HALF TABLET Refills: 1 Last:08-17-23 BY MOUTH EVERY DAY FOR BLOOD PRESSURE Expr:10-26-23 5) ISOSORBIDE MONONITRATE 30MG SA TAB Qty: Issu:10-25-22 90 for 90 days Sig: TAKE ONE TABLET Refills: 0 Last:09-19-23 BY MOUTH EVERY DAY FOR CHEST PAIN Expr:10-26-23 6) NITROGLYCERIN 0.4MG SL TAB Qty: 100 for DISCONTINUED Issu:05-13-23 30 days Sig: DISSOLVE ONE TABLET Refills: 1 Last:05-13-23 UNDER THE TONGUE THREE TIMES A DAY Expr:05-13-24 NEEDED FOR CHEST PAIN * MAY REPEAT EVERY 5 MINUTES--NO MORE THAN 3 TOTAL 7) ONDANSETRON 4MG ORAL DISINTEGRATING TAB Issu:10-25-22 Qty: 30 for 10 days Sig: DISSOLVE ONE Refills: 1 Last:10-26-22 TABLET IN UNDER THE TONGUE THREE TIMES Expr:10-26-23 A DAY NEEDED FOR NAUSEA 8) POLYETHYLENE GLYCOL 3350 ORAL PWDR Qty: Issu:01-05-23 1020 for 30 days Sig: TAKE 17 GRAMS Refills: 11 Last:01-10-23 BY MOUTH TWICE A DAY Expr:01-06-24 9) PSYLLIUM ORAL PWD Qty: 390 for 30 days DISCONTINUED Issu:10-05-23 Sig: TAKE 2 TEASPOONSFUL BY MOUTH (EDIT) Last:01-27-24 EVERY DAY FOR CONSTIPATION Refills: 8 Expr:10-05-24 10) SPIRONOLACTONE 25MG TAB Qty: 15 for 30 DISCONTINUED Issu:01-13-24 days Sig: TAKE ONE-HALF TABLET BY (EDIT) Last:01-16-24 MOUTH EVERY DAY Refills: 2 Expr:01-13-25 11) SPIRONOLACTONE 25MG TAB Qty: 15 for 30 DISCONTINUED Issu:08-18-23 days Sig: TAKE ONE-HALF TABLET BY Refills: 0 Last:11-03-23 MOUTH EVERY DAY Expr:08-18-24 19 Total Medications /es/ Jatinder Cabrera MD Physician Signed: 01/30/2024 09:26 JATINDER CABRERA [facility] Jan 30, 2024 09:02 AM INTERNAL MEDICINE OUTPATIENT NOTE: LOCAL TITLE: MEDICINE CLINIC NURSING NOTE STANDARD TITLE: INTERNAL MEDICINE OUTPATIENT NOTE DATE OF NOTE: JAN 30, 2024@09:02 ENTRY DATE: JAN 30, 2024@09:02:10 AUTHOR: ELYSSA,GONZÁLEZ Angelo EXP COSIGNER: URGENCY: STATUS: COMPLETED MEDICINE CLINIC NURSING NOTE Has ADDENDA TYPE OF VISIT: Appointment Check In Type of appointment: In-person appointment REASON FOR VISIT: Annual ALLERGIES: TERAZOSIN (Mar 13, 2015) VITAL SIGNS: Blood Pressure: 104/63 (01/30/2024 08:59) Pulse: 74 (01/30/2024 08:59) Respiration: 16 (01/30/2024 08:59) Temperature: 97.7 F [36.5 C] (01/30/2024 08:59) Weight: 220.2 lb [99.88 kg] (01/30/2024 08:59) Height: 71 in [180.3 cm] (10/05/2023 13:39) BMI: 30.8 O2 Sat: 97% (01/30/2024 08:59) Pain: 0 (01/30/2024 08:59) PAIN SCREEN: Patient is not having significant pain that they wish to discuss with their provider today. MEDICATION Over the Counter/Herbal Medications: The patient states that they take some outside medications and/or herbals. Influenza Immunization: No influenza vaccination was received during the recent influenza season. Depression Screening: Perform PHQ-2 A PHQ-2 screen was performed. The score was 0 which is a negative screen for depression. Over the past two weeks, how often have you been bothered by the following problems? 1. Little interest or pleasure in doing things Not at all 2. Feeling down, depressed, or hopeless Not at all Homelessness/Food Insecurity Screen: In the past 2 months, have you been living in stable housing that you own, rent, or stay in as part of a household? Yes - Living in stable housing. Are you worried or concerned that in the next 2 months you may NOT have stable housing that you own, rent, or stay in as part of a household? No - Not worried about housing near future The reports the following: Within the past 12 months, you worried whether your food would run out before you got money to buy more. Never true Within the past 12 months, the food you bought just didn't last and you didn't have money to get more. Never true Food Assistance Programs [facility] Food Assistance Programs [facility] /alexi/ GONZÁLEZ Stephens CASE INVESTMENT BANKER Signed: 01/30/2024 09:05 01/30/2024 ADDENDUM STATUS: COMPLETED COVID-19 Immunization: Pfizer Monovalent (Comirnaty) Administered: COVID-19 (PFIZER), MRNA, LNP-S, PF, CORINA-SUCROSE, 30 MCG/0.3 ML (AGES 12+ YEARS) Date Administered: Jan 30, 2024 09:21 Supervisor Toy Assembly: Competitor Lot: [id number] Exp Date: Apr 28, 2024 [facility]: [phone] Admin Route/Site: INTRAMUSCULAR/LEFT DELTOID Dosage: 0.3mL Vaccine Information Statement(s): COVID-19 MRNA VACCINE (12+ YRS) VACCINE VIS Jun 16, 2023 (UGANDAN) Order By: Policy Administered By: González Patel Vaccine administered without complications. /alexi/ GONZÁLEZ PATEL INVESTMENT BANKER Signed: 01/30/2024 09:22 GONZÁLEZ PATEL [facility]
--- OUTSIDE RECORDS SUMMARY | 2024-04-23 07:10 | XMS_ITS | Encounter Summary ---
Author Name [facility] [place] [facility] [place] Address [address] [place] [address] Care Team Providers Care Prover Name Role Phone JATINDER BENITEZ Primary Care [...] PART A Sep 29, 2016 PART A [id number] [phone] JUDY WEAVER PATIENT Selected Encounter This section includes the information on record at [place] for the Encounter. Date/Time Encounter Type Encounter Description Reason Pro vider Source January 24, 2024 12:00 AM Outpatient Encounter EVENT (HISTORICAL) IHE Encounter Template Text not used by [place] Plan of Treatment: Future Appointments (+ 6 months) and Future Tests (+/- 45 days) The Plan of Treatment section includes future care activities for the patient from all [place] treatmentfacilities. This section includes future appointments and future orders which are active, pending or scheduled. Future Appointments This section includes appointments that were scheduled to occur 6 months from the date of the Encounter, up to a maximum of 20 appointments. The data comes from all [place] treatment facilities. Appointment Date/Time Appointment Type Appointme nt Facility Name Jan 30, 2024 09:30 AM AMBULATORY - MEDICINE [facility] Apr 21, 2024 07:28 AM AMBULATORY - MEDICINE [facility] Apr 27, 2024 02:30 PM [place] [facility] [facility] Social History: Smoking Status (Most current) and Tobacco Use (All prior to encounter date) This section includes the most current, and the historical, smoking and tobacco- related health factors from the [place] facility where the Encounter took place. Current Smoking Status This section includes the most current smoking, or tobacco-related health factor, from the [place] facility where the Encounter took place. Date/Time Current Smoking Status Comment Facil ity May 06, 2023 11:30 AM 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 [facility] Tobacco Use History This section includes a history of the smoking, or tobacco-related health factors, that were collected on or before the date of the Encounter. The data comes from the [place] facility where the Encounter took place. Date/Time Smoking Status/Tobacco Use Comment F acility May 06, 2023 11:30 AM VA-TOBACCO QUIT 15 YRS OR MORE [facility] Jun 04, 2022 09:00 AM 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 [facility] Jun 04, 2022 09:00 AM VA-TOBACCO QUIT 15 YRS OR MORE [facility] Jul 10, 2021 08:00 AM 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 [facility] Jul 10, 2021 08:00 AM VA-TOBACCO QUIT 5 TO < 15 YRS [facility] May 23, 2020 08:30 AM 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 [facility] May 23, 2020 08:30 AM VA-TOBACCO QUIT 5 TO < 15 YRS [facility] Mar 20, 2019 04:03 PM 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 [facility] Mar 20, 2019 04:03 PM VA-TOBACCO QUIT 5 TO < 15 YRS [facility] Mar 21, 2018 08:13 AM FORMER TOBACCO USER 7Y OR GREATE R [facility] Feb 24, 2017 09:24 AM FORMER TOBACCO USER 7Y OR GREATE R [facility] January 07, 2016 08:01 AM FORMER TOBACCO USE >1Y <7Y [facility] Feb 03, 2015 07:58 AM FORMER TOBACCO USE <1Y [facility] Feb 26, 2014 08:41 AM CURRENT TOBACCO USER [facility] May 13, 2011 01:45 PM CURRENT TOBACCO USER [facility] Advance Directives: All historical and current Section Date Range: From patient's date of to the date document was created. This section includes ALL of a patient's completed or amended [place] Advance and Rescinded Directives. The entries below indicate that a directive exists for the patient, but an actual copy is not included with this document. The data comes from all [place] facilities. Date Advance Directives Provider Source Mar 23, 2016 CLINICAL WARNING [facility] Radiology Reports: +/- 30 days of [...] the Encounter. The data comes from all [place] treatment facilities. Date/Time Radiology Report Provider Source January 24, 2024 06:42 AM LDCT LUNG CANCER S CREENING: FLACA WEAVER [id number] -[id number] M Exm Date: JANUARY 24, 2024@06:42 Req Phys: JATINDER BENITEZ Loc: [facility] PULM CHART CHECK [facility] (Req' Img Loc: CT IMAGING Service: [place] [address] (Case 128 COMPLETE) LDCT LUNG CANCER SCREENING (CT Detailed) CPT:23175 Reason for Study: LDCT for LUNG CANCER SCREENING (ANNUAL) Clinical History: [place] IS NOT under investigation for COVID-19 or [...] 24, 2024 Date Verified: JANUARY 24, 2024 Photographic Laboratory Supervisor E-Sig:/ES/LISA PENDLETON MD Report: EXAM: LDCT LUNG CANCER SCREENING COMPARISON: 11/12/2022 PROTOCOL: Screening protocol, low dose, non-contrast CT chest was performed in accordance with Lung-Rads 2021. Additional coronal and sagittal reconstructions. MIP reconstructions [...] Primary Interpreting Staff: LISA PENDLETON MD, RADIOLOGIST (Photographic Laboratory Supervisor) /JRT LISA PENDLETON [facility]
--- OUTSIDE RECORDS SUMMARY | 2024-04-23 07:10 | XMS_ITS | Encounter Summary ---
Author Name [facility] [facility] [place] Address [address] [place] [address] Care Team Providers Care Rn Transitional Care Name Role Phone JATINDER BENITEZ Primary Care [...] PART A Sep 29, 2016 PART A [id number] [phone] JUDY WEAVER PATIENT Selected Encounter This section includes the information on record at [place] for the Encounter. Date/Time Encounter Type Encounter Description Reason Pro vider Source Jan 30, 2024 08:56 AM Outpatient Encounter PRIMARY CARE/MEDICINE IHE Encounter Template Text not used by [place] Plan of Treatment: Future Appointments (+ 6 months) and Future Tests (+/- 45 days) The Plan of Treatment section includes future care activities for the patient from all [place] treatmentfacilities. This section includes future appointments and future orders which are active, pending or scheduled. Future Appointments This section includes appointments that were scheduled to occur 6 months from the date of the Encounter, up to a maximum of 20 appointments. The data comes from all [place] treatment facilities. Appointment Date/Time Appointment Type Appointme nt Facility Name Apr 21, 2024 07:28 AM AMBULATORY - MEDICINE [facility] Apr 27, 2024 02:30 PM AMBULATORY - NONE [facility] Vital Signs: All taken on the encounter date This section contains inpatient and outpatient Vital Signs collected on the date of the Encounter. Date/Time Temperature Pulse Blood Pressure Respiratory Rate SP02 Pain Height Weight Body Mass Index Source Jan 30, 2024 08:59 AM 97.7 74 104/63 16 97 0 220.2 31 [place] [facility] Social History: Smoking Status (Most current) and Tobacco Use (All prior to encounter date) This section includes the most current, and the historical, smoking and tobacco- related health factors from the [place] facility where the Encounter took place. Current Smoking Status This section includes the most current smoking, or tobacco-related health factor, from the [place] facility where the Encounter took place. Date/Time Current Smoking Status Comment Facil ity May 06, 2023 11:30 AM 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 [facility] Tobacco Use History This section includes a history of the smoking, or tobacco-related health factors, that were collected on or before the date of the Encounter. The data comes from the [place] facility where the Encounter took place. Date/Time Smoking Status/Tobacco Use Comment F acility May 06, 2023 11:30 AM VA-TOBACCO QUIT 15 YRS OR MORE [facility] Jun 04, 2022 09:00 AM 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 [facility] Jun 04, 2022 09:00 AM VA-TOBACCO QUIT 15 YRS OR MORE [facility] Jul 10, 2021 08:00 AM 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 [facility] Jul 10, 2021 08:00 AM VA-TOBACCO QUIT 5 TO < 15 YRS [facility] May 23, 2020 08:30 AM 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 [facility] May 23, 2020 08:30 AM VA-TOBACCO QUIT 5 TO < 15 YRS [facility] Mar 20, 2019 04:03 PM 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 [facility] Mar 20, 2019 04:03 PM VA-TOBACCO QUIT 5 TO < 15 YRS [facility] Mar 21, 2018 08:13 AM FORMER TOBACCO USER 7Y OR GREATE R [facility] Feb 24, 2017 09:24 AM FORMER TOBACCO USER 7Y OR GREATE R [facility] January 07, 2016 08:01 AM FORMER TOBACCO USE >1Y <7Y [facility] Feb 03, 2015 07:58 AM FORMER TOBACCO USE <1Y [facility] Feb 26, 2014 08:41 AM CURRENT TOBACCO USER [facility] May 13, 2011 01:45 PM CURRENT TOBACCO USER [facility] Advance Directives: All historical and current Section Date Range: From patient's date of to the date document was created. This section includes ALL of a patient's completed or amended [place] Advance and Rescinded Directives. The entries below indicate that a directive exists for the patient, but an actual copy is not included with this document. The data comes from all [place] facilities. Date Advance Directives Provider Source Mar 23, 2016 CLINICAL WARNING [facility] Radiology Reports: +/- 30 [...] the Encounter. The data comes from all [place] treatment facilities. Date/Time Radiology Report Provider Source January 24, 2024 06:42 AM LDCT LUNG CANCER S CREENING: FLACA WEAVER [id number] -[id number] M Exm Date: JANUARY 24, 2024@06:42 Req Phys: JATINDER BENITEZ Loc: [facility] CHART CHECK [facility] (Req' Img Loc: CT IMAGING Service: [place] [address] (Case [id number] COMPLETE) LDCT LUNG CANCER SCREENING (CT Detailed) CPT:20936 Reason for Study: LDCT for LUNG CANCER SCREENING (ANNUAL) Clinical History: [place] IS NOT under investigation for COVID-19 or [...] 24, 2024 Date Verified: JANUARY 24, 2024 Kettle Tender E-Sig:/ES/LISA PENDLETON MD Report: EXAM: LDCT LUNG [...] Primary Interpreting Staff: LISA PENDLETON MD, RADIOLOGIST (Kettle Tender) /JRT LISA PENDLETON [facility] Encounter Notes: All associated encounter notes This section contains the clinical notes associated to the Encounter. Date/Time Encounter Note(s) Provider Source Jan 30, 2024 08:56 AM ADVANCE DIRECTIVE: LOCAL TITLE: AD NOTIFICATION AND SCREENING STANDARD TITLE: ADVANCE DIRECTIVE DATE OF NOTE: JAN 30, 2024@08:56 ENTRY DATE: JAN 30, 2024@08:56:34 AUTHOR: JOB NICK EXP COSIGNER: URGENCY: STATUS: COMPLETED ADVANCE DIRECTIVE NOTIFICATION: Patient was given written notification of the following rights: 1. Accept or refuse any medical treatment. 2. Complete a durable power of ip attorney for health care. 3. Complete a living will. ADVANCE DIRECTIVE SCREENING: Does patient have an Advance Directive? The patient does not have an Advance Directive. The patient does not wish to create an Advance Directive for health care. Comment: Vet received AD materials and will review to consider /alexi/ JOB NICK CLINICAL SYSTEMS EDUCATOR Signed: 01/30/2024 08:57 JOB NICK [facility]
--- OUTSIDE RECORDS SUMMARY | 2024-04-23 07:10 | XMS_ITS | Encounter Summary ---
Author Name [facility] [place] [facility] [place] Address [address] [place] [address] Care Team Providers Care Traffic Worker Name Role Phone JATINDER BENITEZ Primary Care [...] PART A Sep 29, 2016 PART A [id number] [phone] JUDY WEAVER PATIENT Selected Encounter This section includes the information on record at [place] for the Encounter. Date/Time Encounter Type Encounter Description Reason Provider Source Apr 21, 2024 07:28 AM EMERGENCY DEPT VISIT LOW [facility] EMERGENCY DEPT ICD-10-CM N32.81 Overactive bladder NOE ROJAS E Encounter Template Text not used by [place] Assessments - Encounter Diagnoses This section includes the primary and secondary diagnoses documented for the Encounter. Date/Time Primary/Secondary Diagnosis Diagnosis Name Provider Source Apr 21, 2024 09:03 AM PRIMARY Overactive bladder NOE ROJAS [facility] Plan of Treatment: Future Appointments (+ 6 months) and Future Tests (+/- 45 days) The Plan of Treatment section includes future care activities for the patient from all [facility]. This section includes future appointments and future orders which are active, pending or scheduled. Future Appointments This section includes appointments that were scheduled to occur 6 months from the date of the Encounter, up to a maximum of 20 appointments. The data comes from all [facility]. Appointment Date/Time Appointment Type Appointme nt Facility Name Apr 27, 2024 02:30 PM [facility] Active, Pending, and Scheduled Orders This section includes a listing of several types of active, pending, and scheduled orders, including clinic medications orders, diagnostic test orders, procedure orders and consult orders; where the start date of the order is 45 days before the date of the Encounter or 45 days after the date of theEncounter. The data comes from all [facility]. Test Date/Time Test Type Test Details Facility Name Apr 27, 2024 02:30 PM Imaging - Ultrasound Order US AO RTA (P) [facility] Lab Results: +/- 30 days of the encounter This section includes the Chemistry and Hematology Lab Results on record with [place] for the patient. Radiology Reports and Pathology Reports are provided separately, in subsequent sections. Lab Results This section contains the Chemistry/Hematology Results that were resulted 30 days before or 30 daysafter the date of the Encounter. Date/Time Source Result Type Result - Unit Interpretation Reference Range Comment Apr 21, 2024 07:28 AM [facility] URINALYSIS Specimen Type: URINE No comment entered. Ordering Provider: ANANDA HUGGINS Report Released Date/Time: Apr 21, 2024 07:37 AM Reporting Lab: [facility] [id number] Performing Lab: [facility] [id number] URINE COLOR COLORLESS SPECIFIC GRAVITY 1.009 1.003-1.035 URINE BILIRUBIN NEGATIVE NEGATIVE URINE KETONES NEGATIVE NEGATIVE URINE GLUCOSE >1000 mg/dL See_Comment URINE PROTEIN NEGATIVE mg/dL See_Comment URINE PH 5.5 5.0-8.0 URINE WBC/HPF 1 /[HPF] 0-7 URINE BACTERIA NONE SEEN URINE RBC/HPF NONE SEEN /[HPF] 0-3 APPEARANCE CLEAR SQUAMOUS EPITHELIAL NONE SEEN /[HPF] URINE BLOOD NEGATIVE NEGATIVE URINE NITRITE NEGATIVE NEGATIVE LEUKOCYTE ESTERASE NEGATIVE NEGATIVE Vital Signs: All taken on the encounter date This section contains inpatient and outpatient Vital Signs collected on the date of the Encounter. Date/Time Temperature Pulse Blood Pressure Respiratory Rate SP02 Pain Height Weight Body Mass Index Source Apr 21, 2024 07:35 AM 99.6 61 125/59 16 96 5 JAIME LOZANO [facility] Social History: Smoking Status (Most current) and Tobacco Use (All prior to encounter date) This section includes the most current, and the historical, smoking and tobacco- related health factors from the [place] facility where the Encounter took place. Current Smoking Status This section includes the most current smoking, or tobacco-related health factor, from the [place] facility where the Encounter took place. Date/Time Current Smoking Status Comment Facil ity May 06, 2023 11:30 AM 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 [facility] Tobacco Use History This section includes a history of the smoking, or tobacco-related health factors, that were collected on or before the date of the Encounter. The data comes from the [place] facility where the Encounter took place. Date/Time Smoking Status/Tobacco Use Comment F acility May 06, 2023 11:30 AM VA-TOBACCO QUIT 15 YRS OR MORE [facility] Jun 04, 2022 09:00 AM 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 [facility] Jun 04, 2022 09:00 AM VA-TOBACCO QUIT 15 YRS OR MORE [facility] Jul 10, 2021 08:00 AM 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 [facility] Jul 10, 2021 08:00 AM VA-TOBACCO QUIT 5 TO < 15 YRS [facility] May 23, 2020 08:30 AM 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 [facility] May 23, 2020 08:30 AM VA-TOBACCO QUIT 5 TO < 15 YRS [facility] Mar 20, 2019 04:03 PM 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 [facility] Mar 20, 2019 04:03 PM VA-TOBACCO QUIT 5 TO < 15 YRS [facility] Mar 21, 2018 08:13 AM FORMER TOBACCO USER 7Y OR GREATE R [facility] Feb 24, 2017 09:24 AM FORMER TOBACCO USER 7Y OR GREATE R [facility] January 07, 2016 08:01 AM FORMER TOBACCO USE >1Y <7Y [facility] Feb 03, 2015 07:58 AM FORMER TOBACCO USE <1Y [facility] Feb 26, 2014 08:41 AM CURRENT TOBACCO USER [facility] May 13, 2011 01:45 PM CURRENT TOBACCO USER [facility] Advance Directives: All historical and current Section Date Range: From patient's date of to the date document was created. This section includes ALL of a patient's completed or amended [place] Advance and Rescinded Directives. The entries below indicate that a directive exists for the patient, but an actual copy is not included with this document. The data comes from all [place] facilities. Date Advance Directives Provider Source Mar 23, 2016 CLINICAL WARNING TIM TERAN [facility] Pathology Reports: +/- 30 days of the [...] the Encounter. The data comes from all [place] treatment facilities. Date/Time Pathology Report Provider Source Apr 21, 2024 07:28 AM LR MICROBIOLOGY RE PORT: Reporting Lab: [facility] [CLIA# [id number]] [place] [address] Accession [UID]: [id number] [[id number]] Received: Apr 21, 2024@08:16 Collection sample: URINE Collection date: Apr 21, 2024 07:28 Provider: ANANDA HUGGINS Comment on specimen: RECEIVED IN STERILE CUP Test(s) ordered: CULTURE & SUSCEPTIBILITY...... completed: Apr 22, 2024 * BACTERIOLOGY FINAL REPORT => Apr 22, 2024 08:38 TECH CODE: [id number] CULTURE RESULTS: NO GROWTH 24 HOURS Bacteriology Remark(s): THIS REPORT IS FINAL =--=--=--=--=--=--=--=--=--=--=--=- -=--=--=--=--=--=--=--=--=--=--=--= --=--=-- Performing Laboratory: Bacteriology Report Performed By: [facility] [CLIA# [id number]] [place] [address] [facility] Encounter Notes: All associated encounter notes This section contains the clinical notes associated to the Encounter. Date/Time Encounter Note(s) Provider Source Apr 21, 2024 08:53 AM NURSING EMERGENCY DEPT NOTE: LOCAL TITLE: EMERGENCY DEPT NURSING NOTE STANDARD TITLE: NURSING EMERGENCY DEPT NOTE DATE OF NOTE: APR 21, 2024@08:53 ENTRY DATE: APR 21, 2024@08:54:04 AUTHOR: DAMARIS MOJICA COSIGNER: URGENCY: STATUS: COMPLETED EMERGENCY DEPT NURSING NOTE Has ADDENDA Emergency Department Discharge Education Personal Protective Equipment (PPE): The patient was given education on the following: urinary frequency EDUCATION/TEACH BACK: [facility] discharge instructions have been reviewed with Patient AND had an opportunity to ask questions, has verbalized understanding, have received a copy of the [facility] instructions EDUCATIONAL LEVEL OF UNDERSTANDING: Patient was ready and receptive to education. BARRIERS TO LEARNING: No barriers identified Accompanied by: Self Mode of Transportation: Drive self EXIT ADDITIONAL EDUCATION GIVE: Wristband Removal:Patient wristband was removed and destroyed by being placed in the shred bin. Discharged to: Home /alexi/ ABRAN MADRIGAL RN REGISTERED NURSE Signed: 04/21/2024 08:54 04/21/2024 ADDENDUM STATUS: COMPLETED Correction this publicity writer went to give pt his discharge instruction and remove his wrist band and the pt had already left the department. No [facility] given. /alexi/ ABRAN MADRIGAL RN REGISTERED NURSE Signed: 04/21/2024 09:00 ABRAN MOJICA [facility] Apr 21, 2024 08:43 AM EMERGENCY DEPT EDU CATION NOTE: LOCAL TITLE: EMERGENCY DEPT DISCHARGE INSTRUCTIONS STANDARD TITLE: EMERGENCY DEPT EDUCATION NOTE DATE OF NOTE: APR 21, 2024@08:43:11 ENTRY DATE: APR 21, 2024@08:43:11 AUTHOR: NOE ROJAS COSIGNER: URGENCY: STATUS: COMPLETED DISCHARGE INSTRUCTIONS IMPORTANT: We examined and treated you today on an emergency basis only. This was not a substitute for, or an effort to provide, comprehensive medical care. In most cases, you must let your healthcare provider check you again. Tell your healthcare provider about any new or lasting problems. We cannot recognize and treat all injuries or illnesses in one Emergency Department visit. After you leave, you should follow the instructions below. You were treated today by Noe Rojas MD. - Special Information - - This Information Is About Your Follow Up Care - You will need to be seen by your Primary Care Team to have a Re-Evaluation. Please contact your Primary Care Team to be seen in the next - 7 days Future Appointments Future Appointments List not available - This Information Is About Your Illness and Diagnosis - URINARY FREQUENCY Urinary frequency is urinating more often than usual. You may also feel strong, sudden urges to urinate. It is not the same thing as urinary incontinence. Some causes may include: -an overactive bladder -urinary tract infection (UTI) -swelling or infection of the urethra or bladder wall -swelling or infection of the vulva or vagina in women -enlarged prostate in men -certain medicines, such as diuretics (water pills) -alcohol or caffeine - -diabetes Treatment is will depend on your specific cause of urinary frequency. Please follow these instructions: -Some foods and ingredients can irritate the bladder. Limit your use of such foods like chocolate, spicy foods, tomato-based foods, carbonated drinks, and artificial sweeteners. -Keep your genital area clean. Use plain soap and rinse the area well with water. -Women should wipe from front to back after urinating or having a bowel movement. -Reduce the amount of liquids you drink before bedtime. -Constipation can make your urinary symptoms worse. Make sure to eat a diet with plenty of vegetables and fiber to prevent constipation. -Your health care provider may recommend bladder retraining exercises. This involves training your bladder to hold urine longer. Your provider will give you additional instructions on this subject. Contact your healthcare provider as soon as possible if you have any of the following: -you develop pain or trouble passing your urine. -you have a fever, chills, or back pain. -you have bloody or cloudy urine. -you have any new or bothersome symptoms. - IMPORTANT MEDICATION INFORMATION -Your medication list includes any medications that were recently prescribed but not filled by the Pharmacy (PENDING Medicines). -Included are any known ACTIVE Medicines. Please review this list to make sure it is accurate, if this list does not match the current medications you are taking please follow-up with your Primary Care Team to have your Medication List reviewed. Medicines Medication List not available YOU ARE THE MOST IMPORTANT FACTOR IN YOUR RECOVERY. Follow the above instructions carefully. Take your medicines as prescribed. If you do not understand any of your medicines, please ask questions. If you have any outstanding tests from the emergency department, please contact your provider to review them in the next 3-5 days. If you have new symptoms, feel worse, or are not getting better as discussed, call to discuss your health questions and arrange for follow-up care, or return to the Emergency Room IF YOU ARE EXPERIENCING A MEDICAL EMERGENCY CALL 911 OR GO TO THE NEAREST EMERGENCY ROOM /es/ NOE ROJAS MD MANUFACTURING ENGINEERING TECHNICIAN, ED/[facility] Signed: 04/21/2024 08:43 NOE ROJAS [facility] Apr 21, 2024 08:03 AM PHYSICIAN EMERGENC Y DEPT NOTE: LOCAL TITLE: EMERGENCY DEPT NOTE STANDARD TITLE: PHYSICIAN EMERGENCY DEPT NOTE DATE OF NOTE: APR 21, 2024@08:03 ENTRY DATE: APR 21, 2024@08:03:25 AUTHOR: NOE ROJAS EXP COSIGNER: URGENCY: STATUS: COMPLETED EMERGENCY DEPARTMENT NOTE CC: Urinary retention, dysuria HPI: Patient is a 73-year-old male who presents for evaluation of dysuria and increased urinary frequency over the last 3 days. He has been feeling the urge to urinate, however, when he goes to the bathroom he only has tiny amount at the time. He also reports some dysuria. Mr. Weaver tells me he has a history of chronic abdominal pain, localized to the lower abdomen, which has been acting up in the last few weeks as well. He denies fevers or chills. No hematuria. He has been tolerating oral intake fine without nausea or vomiting. He does have intermittent constipation for which he takes MiraLAX. Of note, he does take empagliflozin. ROS: 10 systems reviewed and negative except what is noted in HPI. PMH/PSH Active problems - Computerized Problem List is [...] . No additional CRC surveillance recommended by research consultant. 9. Decreased vitamin D - 02.24.2017 [...] - By 02.13.[address] 03.14.2020 OSH(ED [place], [place]): Pt. Declined Admission. 03.14.2020 CT with Mild Sigmoid diverticulitis. 04.23.2020 ED([facility]): Declined admission. 17. 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 18. Ex-tobacco user 19. Impaired Fasting Glucose (SCT [id number]) - 02.26.2014 A1c 5.8%. 20. Adrenal mass [...] recommended. 24. Hiatal hernia 25. Shoulder Pain ([facility] [id number]) 26. Trigger finger 27. [facility] - [facility] Primary: Dr. Cathi Simeon, [place] [address]. Medications Active Outpatient Medications (excluding Supplies): Outpatient Medications Status 1) ATORVASTATIN CALCIUM 40MG TAB TAKE ONE-HALF TABLET BY ACTIVE MOUTH AT BEDTIME FOR CHOLESTEROL 2) EMPAGLIFLOZIN 25MG TAB TAKE ONE-HALF TABLET BY MOUTH ACTIVE EVERY DAY 3) FUROSEMIDE 20MG TAB TAKE ONE TABLET BY MOUTH EVERY ACTIVE DAY NEEDED FOR EXCESS FLUID TAKE ONE TABLET FOR WEIGHT GAIN OF 3 POUNDS OVERNIGHT OR MORE THAN 5 POUNDS IN 1 WEEK OR LEG SWELLING 4) HCTZ 12.5/LISINOPRIL 10MG TAB TAKE ONE HALF TABLET BY ACTIVE (S) MOUTH EVERY DAY FOR BLOOD PRESSURE 5) ISOSORBIDE MONONITRATE 30MG SA TAB TAKE ONE TABLET BY ACTIVE MOUTH EVERY DAY FOR CHEST PAIN 6) NITROGLYCERIN 0.4MG SL TAB DISSOLVE ONE TABLET UNDER ACTIVE THE TONGUE THREE TIMES A DAY NEEDED CHEST PAIN FOR CHEST PAIN * MAY REPEAT EVERY 5 MINUTES--NO MORE THAN 3 TOTAL 7) PSYLLIUM ORAL PWD TAKE 2 TEASPOONSFUL BY MOUTH EVERY ACTIVE DAY FOR CONSTIPATION 8) SPIRONOLACTONE 25MG TAB TAKE ONE-HALF TABLET BY MOUTH ACTIVE EVERY DAY FOR BLOOD PRESSURE Allergies: TERAZOSIN (Mar 13, 2015) PHYSICAL EXAM Vitals: Temperature: 99.6 F [37.6 C] (04/21/2024 07:35) Blood Pressure: 125/59 (04/21/2024 07:35) Pulse: 61 (04/21/2024 07:35) Respiration: 16 (04/21/2024 07:35) Pain: 5 (04/21/2024 07:35) General: Well-appearing, no acute distress. Skin: not jaundiced, no worrisome lesions HEENT: Atraumatic, no scleral icterus, moist mucous membranes Neck: Supple with no cervical adenopathy CV: RRR, S1/S2 with no murmurs, rubs or gallops Resp: Lungs clear to auscultation bilaterally, no crackles or wheezes Abd: soft, mildly tender in lower abdomen, no rebound tenderness, no guarding, normal active bowel sounds Ext: well perfused, no LE edema Neuro: Awake, alert, answering questions appropriately, no focal motor or sensory deficits ED Course/Medical Decision Making/Assessment #Urinary urgency and dysuria #Acute on chronic lower abdominal pain Temp 99.6, hemodynamically stable, nontoxic-appearing. Given constellation of symptoms, obtained UA which essentially rules out UTI. UA is notable for marked glucosuria, likely secondary to empagliflozin use. Possibly overactive bladder symptoms. Discussed possible treatment of this condition, however, Mr. Weaver is very hesitant to start any medications, especially given his history of constipation. He is reassured that UTI has been ruled out. I advised him to follow-up with his primary care provider to discuss possible treatment options for overactive bladder, and consider other testing or referrals as appropriate. He is comfortable discharging from the emergency department. Disposition: Discharge home MD JEEVAN Martins // NOE ROJAS MD MANUFACTURING ENGINEERING TECHNICIAN, ED/[facility] Signed: 04/21/2024 08:45 Receipt Acknowledged By: * AWAITING SIGNATURE * JATINDER BENITEZ ADINAN A [facility] Apr 21, 2024 07:56 AM NURSING EMERGENCY DEPT NOTE: LOCAL TITLE: EMERGENCY DEPT NURSING NOTE STANDARD TITLE: NURSING EMERGENCY DEPT NOTE DATE OF NOTE: APR 21, 2024@07:56 ENTRY DATE: APR 21, 2024@07:57:19 AUTHOR: DAMARIS MOJICA COSIGNER: URGENCY: STATUS: COMPLETED Nursing Focused Assessment: CHIEF COMPLAINT: The pt reports he lives with a significant other and denies the use of any ambulatory aides. The pt reports ongoing intermittent abdominal bloating/constipation/dysu figueroa for a long time. The pt states I called the nurse line and she suggested I come in. The pt was able to provide a urine sample and a PVR showed 6 cc of urine. Pt awaiting provider evaluation. Allergies/ADR: TERAZOSIN (Mar 13, 2015) Additional allergies not listed: None Vital Signs * Blood Pressure: 125/59 (04/21/2024 07:35) Heart Rate: 61 (04/21/2024 07:35) Respirations: 16 (04/21/2024 07:35) Temperature: 99.6 F [37.6 C] (04/21/2024 07:35) Pain: 5 (04/21/2024 07:35) Weight: 220.2 lb [99.88 kg] (01/30/2024 08:59) O2 Sats: 96% (04/21/2024 07:35) Tobacco use: No Alcohol use: No Any drugs besides what is prescribed or over the counter: Yes What type of drugs are you using: THC How often are you using drugs: ABUSE/NEGLECT: REVIEW OF SYSTEM-FOCUSED ASSESSMENT Neurological: Alert Iris Coma Scale: Date and Time Preformed: Mar@08:02 Best Motor Response: Obeys simple commands - 6 Best Verbal Response: Oriented - 5 Eye Opening: Spontaneous - 4 Total: 15 Gastrointestinal: Additional comments/issues/interventi ons: intermittent constipation/abdominal pain/bloating Genitourinary: Frequency: Bladder scan results: 6 cc Additional comments/issues/interventi ons: dysuria INTERVENTIONS: Patient changed into gown: Warm blanket Oriented to room and bed controls Call light within reach of patient or family/friend Bed in low position and locked // ABRAN MADRIGAL RN REGISTERED NURSE Signed: 04/21/2024 08:05 ABRAN MOJICA [facility] Apr 21, 2024 07:37 AM NURSING EMERGENCY DEPT TRIAGE NOTE: LOCAL TITLE: EMERGENCY DEPARTMENT NURSING TRIAGE NOTE STANDARD TITLE: NURSING EMERGENCY DEPT TRIAGE NOTE DATE OF NOTE: APR 21, 2024@07:37 ENTRY DATE: APR 21, 2024@07:37:07 AUTHOR: TAINA RIGGS COSIGNER: URGENCY: STATUS: COMPLETED Emergency Department/Urgent Care Center Triage Patient age:73 Sex: MALE On arrival patient was: AMBULATORY Patient phone number: Allergies: TERAZOSIN (Mar 13, 2015) Subjective/Chief Complaint: c/o episodes that comes and goes of urinary retention and dysuria. Objective: This episode started 3 d ago. He mentioned his abd feels bloated and has had pain across his abd for awhile. Has not noticed any blood in the urine, has some nausea. The patient is not a fall risk. Vital Signs * Blood Pressure: 125/59 (04/21/2024 07:35) Heart Rate: 61 (04/21/2024 07:35) Respirations: 16 (04/21/2024 07:35) Temperature: 99.6 F [37.6 C] (04/21/2024 07:35) Pain: 5 (04/21/2024 07:35) Weight: 220.2 lb [99.88 kg] (01/30/2024 08:59) O2 Sats: 96% (04/21/2024 07:35) Emergency Severity Index (AILYN) level Level 3 Current Medications: Active Outpatient Medications (including Supplies): Active Outpatient Medications Status 1) ATORVASTATIN CALCIUM 40MG TAB TAKE ONE-HALF TABLET BY ACTIVE MOUTH AT BEDTIME FOR CHOLESTEROL 2) EMPAGLIFLOZIN 25MG TAB TAKE ONE-HALF TABLET BY MOUTH ACTIVE EVERY DAY 3) FUROSEMIDE 20MG TAB TAKE ONE TABLET BY MOUTH EVERY ACTIVE DAY NEEDED FOR EXCESS FLUID TAKE ONE TABLET FOR WEIGHT GAIN OF 3 POUNDS OVERNIGHT OR MORE THAN 5 POUNDS IN 1 WEEK OR LEG SWELLING 4) HCTZ 12.5/LISINOPRIL 10MG TAB TAKE ONE HALF TABLET BY ACTIVE (S) MOUTH EVERY DAY FOR BLOOD PRESSURE 5) ISOSORBIDE MONONITRATE 30MG SA TAB TAKE ONE TABLET BY ACTIVE MOUTH EVERY DAY FOR CHEST PAIN 6) NITROGLYCERIN 0.4MG SL TAB DISSOLVE ONE TABLET UNDER ACTIVE THE TONGUE THREE TIMES A DAY NEEDED CHEST PAIN FOR CHEST PAIN * MAY REPEAT EVERY 5 MINUTES--NO MORE THAN 3 TOTAL 7) PSYLLIUM ORAL PWD TAKE 2 TEASPOONSFUL BY MOUTH EVERY ACTIVE DAY FOR CONSTIPATION 8) SPIRONOLACTONE 25MG TAB TAKE ONE-HALF TABLET BY MOUTH ACTIVE EVERY DAY FOR BLOOD PRESSURE Current Problems: Hypertension ([facility] [id number]) 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[facility] [id number]) Impulse control disorder ([facility] [id number]) Cervicalgia ([facility] [id number]) Sleep apnea ([facility] [id number]) Coronary artery disease ([facility] [id number]) Hyperlipidemia ([facility] [id number]) Colonoscopy normal ([facility] [id number]) Decreased vitamin D ([facility] [id number]) Aneurysm of common iliac artery ([facility] [id number]) Pain of both knees ([facility] [id number])History of surgery ([facility] [id number]) Wrist pain ([facility] 23733909) Carpal tunnel syndrome ([facility] [id number]) Steatosis of liver ([facility] [id number]) Diverticular disease ([facility] [id number]) Infarction of kidney ([facility] 33332429) Ex-tobacco user ([facility] [id number]) Impaired Fasting Glucose ([facility] [id number])Adrenal mass ([facility] [id number]) Abdominal aortic aneurysm (SCT [id number] cyst ([facility] [id number]) Multiple nodules of lung ([facility] [id number])Hiatal hernia ([facility] 33955892) Shoulder Pain ([facility] [id number]) Trigger finger ([facility] [id number]) [facility] Primary Care (ICD-10-CM R69.) Identification of Seniors at Risk (ISAR):* Defer screen <75 Suicide Screen: [place] Suicide Severity Rating Scale (C-SSRS) screener 1. Over the past month, have you [...] due to responses to other questions. /alexi/ TAINA RIGGS SEXER RN Signed: 04/21/2024 07:39 TAINA RIGGS [facility]
--- OUTSIDE RECORDS SUMMARY | 2024-04-23 07:10 | XMS_ITS | Encounter Summary ---
Author Name [facility] [facility] [place] Address [address] [place] [address] Care Team Providers Care Therapy Teacher Name Role Phone JATINDER BENITEZ Primary Care [...] PART A Sep 29, 2016 PART A [id number] [phone] JUDY WEAVER PATIENT Selected Encounter This section includes the information on record at [place] for the Encounter. Date/Time Encounter Type Encounter Description Reason Provider Source Apr 23, 2024 04:44 AM Outpatient Encounter TELEPHONE TRIAGE LEILANI ARAMBULA Alex Encounter Template Text not used by [place] Plan of Treatment: Future Appointments (+ 6 months) and Future Tests (+/- 45 days) The Plan of Treatment section includes future care activities for the patient from all [place] treatmentfacilities. This section includes future appointments and future orders which are active, pending or scheduled. Future Appointments This section includes appointments that were scheduled to occur 6 months from the date of the Encounter, up to a maximum of 20 appointments. The data comes from all [place] treatment facilities. Appointment Date/Time Appointment Type Appointme nt Facility Name Apr 27, 2024 02:30 PM AMBULATORY - NONE [place] [facility] Active, Pending, and Scheduled Orders This section includes a listing of several types of active, pending, and scheduled orders, including clinic medications orders, diagnostic test orders, procedure orders and consult orders; where the start date of the order is 45 days before the date of the Encounter or 45 days after the date of theEncounter. The data comes from all [place] treatment facilities. Test Date/Time Test Type Test Details Facility Name Apr 27, 2024 02:30 PM Imaging - Ultrasound Order US AO RTA (P) [facility] Lab Results: +/- 30 days of the encounter This section includes the Chemistry and Hematology Lab Results on record with [place] for the patient. Radiology Reports and Pathology Reports are provided separately, in subsequent sections. Lab Results This section contains the Chemistry/Hematology Results that were resulted 30 days before or 30 daysafter the date of the Encounter. Date/Time Source Result Type Result - Unit Interpretation Reference Range Comment Apr 21, 2024 07:28 AM [facility] URINALYSIS Specimen Type: URINE No comment entered. Ordering Provider: ANANDA HUGGINS Report Released Date/Time: Apr 21, 2024 07:37 AM Reporting Lab: [facility] [id number] Performing Lab: [facility] [id number] URINE COLOR COLORLESS SPECIFIC GRAVITY 1.009 1.003-1.035 URINE BILIRUBIN NEGATIVE NEGATIVE URINE KETONES NEGATIVE NEGATIVE URINE GLUCOSE >1000 mg/dL See_Comment URINE PROTEIN NEGATIVE mg/dL See_Comment URINE PH 5.5 5.0-8.0 URINE WBC/HPF 1 /[HPF] 0-7 URINE BACTERIA NONE SEEN URINE RBC/HPF NONE SEEN /[HPF] 0-3 APPEARANCE CLEAR SQUAMOUS EPITHELIAL NONE SEEN /[HPF] URINE BLOOD NEGATIVE NEGATIVE URINE NITRITE NEGATIVE NEGATIVE LEUKOCYTE ESTERASE NEGATIVE NEGATIVE Social History: Smoking Status (Most current) and [...] took place. Date/Time Current Smoking Status Comment Juan Manuel putnam May 06, 2023 11:30 AM 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 [facility] Tobacco Use History This section includes a history of the smoking, or tobacco-related health factors, that were collected on or before the date of the Encounter. The data comes from the [place] facility where the Encounter took place. Date/Time Smoking Status/Tobacco Use Comment F acility May 06, 2023 11:30 AM VA-TOBACCO QUIT 15 YRS OR MORE [facility] Jun 04, 2022 09:00 AM 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 [facility] Jun 04, 2022 09:00 AM VA-TOBACCO QUIT 15 YRS OR MORE [facility] Jul 10, 2021 08:00 AM 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 [facility] Jul 10, 2021 08:00 AM VA-TOBACCO QUIT 5 TO < 15 YRS [facility] May 23, 2020 08:30 AM 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 [facility] May 23, 2020 08:30 AM VA-TOBACCO QUIT 5 TO < 15 YRS [facility] Mar 20, 2019 04:03 PM 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 [facility] Mar 20, 2019 04:03 PM VA-TOBACCO QUIT 5 TO < 15 YRS [facility] Mar 21, 2018 08:13 AM FORMER TOBACCO USER 7Y OR GREATE R [facility] Feb 24, 2017 09:24 AM FORMER TOBACCO USER 7Y OR GREATE R [facility] January 07, 2016 08:01 AM FORMER TOBACCO USE >1Y <7Y [facility] Feb 03, 2015 07:58 AM FORMER TOBACCO USE <1Y [facility] Feb 26, 2014 08:41 AM CURRENT TOBACCO USER [facility] May 13, 2011 01:45 PM CURRENT TOBACCO USER [facility] Advance Directives: All historical and current Section Date Range: From patient's date of to the date document was created. This section includes ALL of a patient's completed or amended [place] Advance and Rescinded Directives. The entries below indicate that a directive exists for the patient, but an actual copy is not included with this document. The data comes from all [facility]. Date Advance Directives Provider Source Mar 23, 2016 VALARIE WARNING TIM TERAN [facility] Pathology Reports: +/- 30 days of [...] AM LR MICROBIOLOGY RE PORT: Reporting Lab: [facility] [CLIA# [id number]] [place] [address] Accession [UID]: [id number] [[id number]] Received: Apr 21, 2024@08:16 Collection sample: URINE Collection date: Apr 21, 2024 07:28 Provider: ANANDA HUGGINS Comment on specimen: RECEIVED IN STERILE CUP Test(s) ordered: CULTURE & SUSCEPTIBILITY...... completed: Apr 22, 2024 * BACTERIOLOGY FINAL REPORT => Apr 22, 2024 08:38 TECH CODE: [id number] CULTURE RESULTS: NO GROWTH 24 HOURS Bacteriology Remark(s): THIS REPORT IS FINAL =--=--=--=--=--=--=--=--=--=--=--=- -=--=--=--=--=--=--=--=--=--=--=--= --=--=-- Performing Laboratory: Bacteriology Report Performed By: [facility] [CLIA# [id number]] [place] [address] [facility] Encounter Notes: All associated encounter notes This section contains the clinical notes associated to the Encounter. Date/Time Encounter Note(s) Provider Source Apr 23, 2024 03:44 AM RN PROGRESS NOTE: LOCAL TITLE: CCC: CLINICAL TRIAGE STANDARD TITLE: RN PROGRESS NOTE DATE OF NOTE: APR 23, 2024@03:44:29 ENTRY DATE: APR 23, 2024@03:44:29 AUTHOR: LEILANI ARAMBULA EXP COSIGNER: URGENCY: STATUS: COMPLETED CCC: CLINICAL TRIAGE Has ADDENDA Patient Demographics Patient Name: FLACA WEAVER Patient Primary Address: [address] [place] [id number] Patient Primary Phone: [phone] Patient : 1950 Patient Age: 73 Call Back Number: [phone] Caller/Recipient Relation to Patient: Self Emergency Contact: NIMO PIÑA Triage Summary Conducted triage/discussed symptoms Nurse's Recommendation / WHEN: Now Nurse's Recommendation / WHERE: [facility] Patient Disposition Patient/Caregiver agrees to plan of care: Yes Patient WHERE: [facility] Patient WHEN: Now Patient is Urgent or Emergent Nursing Plan and Disposition Referred patient to higher level of care Instructed to go to Emergency Room (ER) Advised of Financial Disclaimer: Patient advised that recommendation for care provided during the call does not constitute an approval or authorization for payment by the [place] or its staff. Patient advised to report a community ED visit to the [facility] Office of Community Care at within 72 hours. Other course(s) of action Generated msg to PACT/Provider Provided guidance for worsening symptoms: *Caller/Patient* advised to call facilities [place] Clinical Contact Center or seek immediate medical attention for new or worsening symptoms Nurse Summary Nurse Summary: [facility] reports the following: Seen in ER Tuesday. This AM has new symptom. This AM is urinating blood and urine has strong odor. Triage deferred, in accordance with ER discharge instructions advised to return to [place] ER now, return to local ER prn, disclaimer read, call 911 prn, advised not to drive himself. [facility] initially reported he was going to local ER, then reports he is driving himself to [place] ER now. [facility] yelling, using profanity, expressed displeasure at his urinary symptoms and also reported GI symptoms, reports this has been ongoing. Again advised to report to [place] ER now. Please follow up with [facility] as needed. Thank you. Clinical Contact Center Codes Clinic/Location: V23 [facility] PHONE [facility] RN IMPORTANT: This note was created by [facility] Clinical Contact Center staff. Please do not alert the staff member by adding them as a signer for future communications. Alerts are not monitored by this user. /alexi/ LEILANI ARAMBULA RN Signed: 04/23/2024 03:44 Receipt Acknowledged By: * AWAITING SIGNATURE * JATINDER BENITEZ * AWAITING SIGNATURE * GUERITA AGUILA 04/23/2024 ADDENDUM STATUS: COMPLETED Addendum: Residential address needs corrected as follows: [address] [address] [facility] /alexi/ LEILANI ARAMBULA RN Signed: 04/23/2024 04:15 Receipt Acknowledged By: * AWAITING SIGNATURE * JATINDER BENITEZ * AWAITING SIGNATURE * GUERITA AGUILA LAURA D [facility]
--- OUTSIDE RECORDS SUMMARY | 2024-04-23 07:10 | XMS_ITS | Encounter Summary ---
Author Name [facility] [place] Organization [facility] [place] Address [address] [place] [address] Care Team Providers Care Fish Filleter Name Role Phone JATINDER BENITEZ Primary Care [...] PART A Sep 29, 2016 PART A [id number] [phone] JUDY WEAVER PATIENT Selected Encounter This section includes the information on record at [place] for the Encounter. Date/Time Encounter Type Encounter Description Reason Provider Source Apr 21, 2024 07:16 AM Outpatient Encounter TELEPHONE TRIAGE [facility] Encounter Template Text not used by MD Plan of Treatment: Future Appointments (+ 6 months) and Future Tests (+/- 45 days) The Plan of Treatment section includes future care activities for the patient from all [place] treatmentfacilities. This section includes future appointments and future orders which are active, pending or scheduled. Future Appointments This section includes appointments that were scheduled to occur 6 months from the date of the Encounter, up to a maximum of 20 appointments. The data comes from all [place] treatment facilities. Appointment Date/Time Appointment Type Appointme nt Facility Name Apr 27, 2024 02:30 PM [facility] Active, Pending, and Scheduled Orders This section includes a listing of several types of active, pending, and scheduled orders, including clinic medications orders, diagnostic test orders, procedure orders and consult orders; where the start date of the order is 45 days before the date of the Encounter or 45 days after the date of theEncounter. The data comes from all [place] treatment facilities. Test Date/Time Test Type Test Details Facility Name Apr 27, 2024 02:30 PM Imaging - Ultrasound Order US AO RTA (P) [facility] Lab Results: +/- 30 days of the encounter This section includes the Chemistry and Hematology Lab Results on record with [place] for the patient. Radiology Reports and Pathology Reports are provided separately, in subsequent sections. Lab Results This section contains the Chemistry/Hematology Results that were resulted 30 days before or 30 daysafter the date of the Encounter. Date/Time Source Result Type Result - Unit Interpretation Reference Range Comment Apr 21, 2024 07:28 AM [facility] URINALYSIS Specimen Type: URINE No comment entered. Ordering Provider: ANANDA HUGGINS Report Released Date/Time: Apr 21, 2024 07:37 AM Reporting Lab: [facility] [id number] Performing Lab: [facility] [id number] URINE COLOR COLORLESS SPECIFIC GRAVITY 1.009 1.003-1.035 [...] AM 99.6 61 125/59 16 96 5 [place] [facility] Social History: Smoking Status (Most current) and Tobacco Use (All prior to encounter date) This section includes the most current, and the historical, smoking and tobacco- related health factors from the [place] facility where the Encounter took place. Current Smoking Status This section includes the most current smoking, or tobacco-related health factor, from the [place] facility where the Encounter took place. Date/Time Current Smoking Status Comment Facil ity May 06, 2023 11:30 AM 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 [facility] Tobacco Use History This section includes a history of the smoking, or tobacco-related health factors, that were collected on or before the date of the Encounter. The data comes from the [place] facility where the Encounter took place. Date/Time Smoking Status/Tobacco Use Comment F acility May 06, 2023 11:30 AM VA-TOBACCO QUIT 15 YRS OR MORE [facility] Jun 04, 2022 09:00 AM 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 [facility] Jun 04, 2022 09:00 AM VA-TOBACCO QUIT 15 YRS OR MORE [facility] Jul 10, 2021 08:00 AM 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 [facility] Jul 10, 2021 08:00 AM VA-TOBACCO QUIT 5 TO < 15 YRS [facility] May 23, 2020 08:30 AM 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 [facility] May 23, 2020 08:30 AM VA-TOBACCO QUIT 5 TO < 15 YRS [facility] Mar 20, 2019 04:03 PM 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 [facility] Mar 20, 2019 04:03 PM VA-TOBACCO QUIT 5 TO < 15 YRS [facility] Mar 21, 2018 08:13 AM FORMER TOBACCO USER 7Y OR GREATE R [facility] Feb 24, 2017 09:24 AM FORMER TOBACCO USER 7Y OR GREATE R [facility] January 07, 2016 08:01 AM FORMER TOBACCO USE >1Y <7Y [facility] Feb 03, 2015 07:58 AM FORMER TOBACCO USE <1Y [facility] Feb 26, 2014 08:41 AM CURRENT TOBACCO USER [facility] May 13, 2011 01:45 PM CURRENT TOBACCO USER [facility] Advance Directives: All historical and current Section Date Range: From patient's date of to the date document was created. This section includes ALL of a patient's completed or amended [place] Advance and Rescinded Directives. The entries below indicate that a directive exists for the patient, but an actual copy is not included with this document. The data comes from all [facility]. Date Advance Directives Provider Source Mar 23, 2016 CLINICAL WARNING [facility] Pathology Reports: +/- 30 days of the [...] the Encounter. The data comes from all [place] treatment facilities. Date/Time Pathology Report Provider Source Apr 21, 2024 07:28 AM LR MICROBIOLOGY RE PORT: Reporting Lab: [facility] [CLIA# [id number]] [place] [address] Accession [UID]: [id number] [[id number]] Received: Apr 21, 2024@08:16 Collection sample: URINE Collection date: Apr 21, 2024 07:28 Provider: ANANDA HUGGINS Comment on specimen: RECEIVED IN STERILE CUP Test(s) ordered: CULTURE & SUSCEPTIBILITY...... completed: Apr 22, 2024 * BACTERIOLOGY FINAL REPORT => Apr 22, 2024 08:38 TECH CODE: [id number] CULTURE RESULTS: NO GROWTH 24 HOURS Bacteriology Remark(s): THIS REPORT IS FINAL =--=--=--=--=--=--=--=--=--=--=--=- -=--=--=--=--=--=--=--=--=--=--=--= --=--=-- Performing Laboratory: Bacteriology Report Performed By: [facility] [CLIA# [id number]] [place] [address] [facility] Encounter Notes: All associated encounter notes This section contains the clinical notes associated to the Encounter. Date/Time Encounter Note(s) Provider Source Apr 21, 2024 06:16 AM RN PROGRESS NOTE: LOCAL TITLE: CCC: CLINICAL TRIAGE STANDARD TITLE: RN PROGRESS NOTE DATE OF NOTE: APR 21, 2024@06:16:19 ENTRY DATE: APR 21, 2024@06:16:19 AUTHOR: SHEKHAR [facility] EXP COSIGNER: URGENCY: STATUS: COMPLETED Patient Demographics Patient Name: FLACA WEAVER Patient Primary [address]: [address] [place] [address] [place] [address] Patient Primary Phone: [phone] Patient : 1950 Patient Age: 73 Call Back Number: [phone] Caller/Recipient Relation to Patient: Self Emergency Contact: NIMO AYANA Triage Summary Conducted triage/discussed symptoms Pain Score: 10 (Severe Pain) Utilized the Triage Tool: Yes Chief Complaint: Urinary Retention System WHEN: Now Nurse's Recommendation / WHEN: Now System WHERE: Emergency department Nurse's Recommendation [facility] Patient Disposition Patient/Caregiver agrees to plan of care: Yes Patient WHERE: ED Other Patient WHEN: Now Nursing Plan and Disposition Referred patient to higher level of care Instructed to go to Emergency Room (ER) Advised of Financial Disclaimer: Patient advised that recommendation for care provided during the call does not constitute an approval or authorization for payment by the [place] or its staff. Patient advised to report a community ED visit to the [facility] Office of Community Care at within 72 hours. Nurse Summary Nurse Summary: Patient called in with complaints of urinary retention for the past 3 days now, pain level 10/10. Triage calls for ER now. Patient stated that he will have someone take him to the [place] ER now. Clinical Contact Center Codes Clinic/Location: [facility]23 [facility] PHONE CCC RN Decision Support System Output: Triage Complete Triage Date: 04/21/2024, 07:01 AM Triage Note: Decision Support Tool Used: TXCC Phone Triage Sat, 21 Apr 2024 10:58:06 +0000 [facility] Demographics 73 y/o Male Results CC: Urinary Retention Software suggested: Now Software suggested follow-up location: Emergency department Values and Measures Duration of CC: 3 Days Positive Responses HPI: bladder feels full HPI: bladder pain, moderate to severe HPI: incomplete bladder emptying [facility] Verbal Education Provided: Based on your responses, you should be treated in the emergency room. A urinary catheter may need to be inserted into your bladder to relieve the obstruction. Take action: You need to see a provider now or your bladder may be damaged: Prolonged urinary obstruction can lead to kidney damage. Do not eat or drink anything until you see the provider. Education Log RN advised the patient that a delay in care could cause the condition to become worse or life threatening. Have someone take you to the ER now. Consider calling an ambulance if you need transportation. IMPORTANT: This note was created by [facility] Clinical Contact Center staff. Please do not alert the staff member by adding them as a signer for future communications. Alerts are not monitored by this user. /alexi/ SHEKHAR [facility] MSN,BSN,RN Signed: 04/21/2024 06:16 Receipt Acknowledged By: * AWAITING SIGNATURE * JATINDER BENITEZ * AWAITING SIGNATURE * GUERITA AGUILA STACY M [facility]
--- NOTE | 2024-04-23 07:11 | PC.NURSE ---
patients signigigant other Candace called for update. patient gives verbal permission to speak to Candace and give updates.
--- NOTE | 2024-04-23 07:24 | ED_ITS ---
HPI - General Adult General Date Seen: 04/23/24 Chief complaint: Urogenital Problems, Male Stated complaint: blood in urine Time Seen by Provider: 04/23/24 06:30 Source: patient Mode of arrival: ambulatory Limitations: no limitations History of Present Illness HPI narrative: Patient is a 73-year-old male who presents for some abdominal pain and urinary symptoms. He says a couple of days ago he was seen at the [facility] because of some urinary symptoms that says his urine at that time was normal. Does note that he has a history of kidney stones and says he has had left lower abdominal pain w hich he says has been there for years, he is uncertain of any prior diagnosis however. He has chronic problems with bloating, constipation etcetera. None of these symptoms have seemed particularly worse lately, but last night he noted that his urine seemed to look strange, he thought there was some particulate matter in it and he was not sure whether he had maybe passed a kidney stone. He says that also smells foul, and after he urinated most recently, some air came out. He denies fevers or chills, unexpected weight loss. He smokes marijuana, denies cigarette use and says he drinks rarely. Related Data Home Medications ?Medication ?Instructions ?Recorded ?Confirmed aspirin 81 mg tablet,delayed 81 mg PO DAILY 09/04/22 09/30/22 release (Adult Aspirin Regimen) nitroglycerin 0.4 mg sublingual 0.4 mg sublingual Q5M PRN 09/13/22 09/30/22 tablet polyethylene glycol 17 ea miscellaneous .QD 09/13/22 09/30/22 psyllium 1 tbsp PO ONCE 09/13/22 09/30/22 Previous Rx's ?Medication ?Instructions ?Recorded atorvastatin 40 mg tablet 40 mg PO DAILY #90 tabs 09/13/22 dicyclomine 10 mg capsule 10 mg PO BID PRN abd pain #60 caps 09/13/22 empagliflozin 25 mg tablet 12.5 mg (1/2 x 25 mg) PO DAILY #45 09/13/22 tabs furosemide 20 mg tablet 20 mg PO DAILY #90 tabs 09/13/22 isosorbide mononitrate 30 mg 30 mg PO QDAY #90 tabs 09/13/22 tablet,extended release 24 hr lisinopril 10 0.5 tab PO DAILY #45 tabs 09/13/22 mg-hydrochlorothiazide 12.5 mg tablet ondansetron 4 mg disintegrating 4 mg PO Q6H PRN nausea and 09/13/22 tablet vomiting #60 tabs spironolactone 25 mg tablet 12.5 mg (1/2 x 25 mg) PO DAILY #45 09/13/22 tabs Allergies Allergy/AdvReac Type Severity Reaction Status Date / Time terazosin Allergy Unknown Verified 09/30/22 14:06 Review of Systems Status of ROS: Reports: 10 or more systems reviewed and unremarkable except as noted in History and below [facility] Medical History Chronic constipation ?K59.09 - Other constipation (ICD-10) Pancreatic cyst ?K86.2 - Cyst of pancreas (ICD-10) Infarction of kidney ?N28.0 - Ischemia and infarction of kidney (ICD-10) Hiatal hernia ?K44.9 - Diaphragmatic hernia without obstruction or gangrene (ICD-10) Multiple lung nodules ?R91.8 - Other nonspecific abnormal finding of lung field (ICD-10) BPH (benign prostatic hyperplasia) ?N40.0 - Benign prostatic hyperplasia without lower urinary tract symptoms (ICD-10) Adenoma of left adrenal gland ?D35.02 - Benign neoplasm of left adrenal gland (ICD-10) History of kidney stones ?Z87.442 - Personal history of urinary calculi (ICD-10) CHF (congestive heart failure) ?I50.9 - Heart failure, unspecified (ICD-10) Edema ?R60.9 - Edema, unspecified (ICD-10) IBS (irritable bowel syndrome) ?K58.9 - Irritable bowel syndrome without diarrhea (ICD-10) CAD (coronary artery disease) ?I25.10 - Atherosclerotic heart disease of [place] coronary artery without angina pectoris (ICD-10) Obstructive sleep apnea syndrome ?G47.33 - Obstructive sleep apnea (adult) (pediatric) (ICD-10) Neck pain ?M54.2 - Cervicalgia (ICD-10) Impulse control disorder ?F63.9 - Impulse disorder, unspecified (ICD-10) Hypertension ?I10 - Essential (primary) hypertension (ICD-10) Hyperlipidemia ?E78.5 - Hyperlipidemia, unspecified (ICD-10) History of vitamin D deficiency ?Z86.39 - Personal history of other endocrine, nutritional and metabolic disease (ICD-10) History of marijuana use ?F12.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, unspecified, in remission (ICD-10) Diverticulitis of sigmoid colon ?K57.32 - Diverticulitis of large intestine without perforation or abscess without bleeding (ICD-10) Common iliac aneurysm ?I72.3 - Aneurysm of iliac artery (ICD-10) Chronic low back pain ?M54.50 - Low back pain, unspecified (ICD-10) ?G89.29 - Other chronic pain (ICD-10) Leukocytosis ?D72.829 - Elevated white blood cell count, unspecified (ICD-10) Anemia ?D64.9 - Anemia, unspecified (ICD-10) Surgical History History of heart artery stent ?Z95.5 - Presence of coronary angioplasty implant and graft (ICD-10) History of spinal surgery ?Z98.890 - Other specified postprocedural states (ICD-10) History of hemorrhoids ?Z87.19 - Personal history of other diseases of the digestive system (ICD-10) History of carpal tunnel surgery ?Z98.890 - Other specified postprocedural states (ICD-10) Social History Smoking Status: Former smoker What tobacco products do you use: cigarettes Smoking quit date/years: >15 years ago Do you use any of these nicotine containing products: None Second hand tobacco smoke exposure: Yes How often do you have a drink containing alcohol: monthly or less How many standard drinks containing alcohol do you have on a typical day: 1 or 2 How often do you have six or more drinks on one occasion: Never AUDIT-C Alcohol total score: 1 Non-prescribed substance use: denies use service: Yes Exam Narrative: Exam Narrative: Vital signs as noted above. In general, an alert, nontoxic male, he looks comfortable. Head: Normocephalic, atraumatic. Eyes: Pupils are equal reactive. Extraocular movements are full. Conjunctivae are normal. ENT: Mucous membranes are moist. Throat is normal. Neck: Supple without lymphadenopathy. Heart: Regular rate and rhythm. No murmur or rub. Lungs: Clear bilaterally. No increased work of breathing, crackles or wheezes. Abdomen: Soft, nondistended. Some lower abdominal tenderness without rebound guarding or rigidity. Extremities: Well perfused. No edema. No calf tenderness. Pulses intact. Neurologic: Patient is alert and oriented to person and place. Speech is fluent. Face is symmetric. Moves all extremities equally. Affect: Normal. Skin: Warm and dry. Well perfused. Const: Vital Signs, click to edit/add: Vital Signs - 24 hr 04/23/24 05:17 Temperature 98 F Pulse Rate [Pulse Oximeter] 74 Respiratory Rate 16 Blood Pressure [Ri ght Upper Arm] 110/66 Pulse Oximetry 100 Oxygen Delivery Me thod Room Air Documenting provider has reviewed patient's vital signs: yes Course Course ED Course: We did attempt to get a UA here, which appeared to have stool in it. As result, I was concerned about possible colovesicular fistula. An IV was placed, labs were drawn and a CT of the abdomen with contrast was ordered. His labs are notable for an elevated white blood cell count of 19, hemoglobin of 13, normal platelets. His sodium was 137, potassium was critically low at 2.4, chloride of 94, CO2 of 37. BUN creatinine normal, lactate was elevated at 2.7 and blood sugar was 118. CRP was elevated at 18.2. CT scan of the abdomen by my review showed what appeared to be an abscess in the pelvis and similar density fluid layering in the bladder. Final radiology read as follows:FINDINGS: Lower chest: Scattered discoid atelectasis lung bases. Coronary atherosclerosis. Liver: Normal in contour with hepatic cyst at the dome of the liver measuring 12 millimeters. Two additional hypodensities are identified which are too small for characterization although these are stable compared to the 2022 exam. Gallbladder and bile ducts: Unremarkable. No stones or inflammation. No biliary dilatation. Spleen: Unremarkable. Normal in size without mass. Pancreas: Unremarkable. No mass or inflammation. Adrenal glands: Hypodense left adrenal nodule arising from the lateral limb measuring 17 millimeters, stable compared to the prior exam. Kidneys: No evidence of hydronephrosis. Left renal scarring redemonstrated at the upper pole. Vasculature: Atherosclerosis with the right common iliac artery measuring 19 millimeters and the left common iliac artery also measuring 19 millimeters. These are also similar to the 202 exam. GI tract: The stomach is decompressed. No dilated loops of small intestine. 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 Appendix unremarkable. Large amount of stool within the colon. Underlying colonic diverticulosis with prominent wall thickening of the sigmoid colon and adjacent fat stranding. Communication to an air and fluid-filled structure with prominent rim consistent with a peridiverticular abscess measuring 7.2 x 4.3 centimeters. This extends to the level of the dome of the bladder. Associated wall thickening of the dome of the bladder with communication to the abscess with air throughout the bladder lumen (5, 95). Pelvis: Thick-walled bladder with communication to the peridiverticular abscess as above. Mild prostatic calcification. 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 Bilateral hip osteoarthritis. 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 IMPRESSION: 1. Colonic diverticulitis with prominent peridiverticular abscess measuring 7.2 x 4.3 centimeters with communication to the bladder lumen. 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 2. Multiple stable incidental findings as detailed above. IV potassium replacement ordered as well as an EKG which is pending. Zosyn 3.375 g IV. Urinalysis was not feasible because of the stool in the urine, but I did ask them to run a culture. A blood culture was obtained as well. Patient requests transfer to [facility] if possible, [facility]. Patient is accepted at the [facility]. At this time he is insisting on being driven by a friend rather than ambulance transfer. Vital Signs Vital signs: Initial Vital Signs Temperature 98 F 04/23/24 05:17 Temperature Source Temporal Artery Scan 04/23/24 05:17 Pulse Rate 74 04/23/24 05:17 Respiratory Rate 16 04/23/24 05:17 Blood Pressure 110/66 04/23/24 05:17 Blood Pressure Mean 80 04/23/24 05:17 Blood Pressure Position Sitting 04/23/24 05:17 Pulse Oximetry 100 04/23/24 05:17 Oxygen Delivery Method Room Air 04/23/24 05:17 Vital Signs Temperature 98 F 04/23/24 05:17 Pulse Rate 74 04/23/24 05:17 Respiratory Rate 16 04/23/24 05:17 Blood Pressure 110/66 04/23/24 05:17 Pulse Oximetry 100 04/23/24 05:17 Oxygen Delivery Method Room Air 04/23/24 05:17 Temperature 98 F 04/23/24 05:17 Pulse Rate 73 04/23/24 10:26 Respiratory Rate 18 04/23/24 10:26 Blood Pressure 133/72 04/23/24 10:26 Pulse Oximetry 100 04/23/24 05:17 Oxygen Delivery Method Room Air 04/23/24 05:17 Medications Administered Medications: Discontinued Medications Generic Name Dose Route Start Last Admin Trade Name Freq PRN Reason Stop Dose Admin Potassium Chloride 10 meq in 100 mls @ 100 mls/hr 04/23/24 07:29 04/23/24 09:09 Potassium Chloride IVPB 04/23/24 08:28 Infused ONCE ONE Infusion Medical Decision Making Lab Data Labs: Lab Results 04/23/24 04/23/24 04/23/24 Range/Units 05:25 05:52 07:48 WBC 19.04 H (4.50-11.00) K/uL RBC 4.17 L (4.30-5.90) m/uL Hgb 13.1 L (13.5-17.5) gm/dL Hct 39.5 (37.0-53.0) % MCV 95 (80-100) fL MCH 31 (26-34) pg MCHC 33 (32-36) gm/dL RDW Coeff of [place] 13.8 (11.5-15.5) % Plt Count 302 (140-440) K/uL Neut % (Auto) 87.4 H (42.0-72.0) % Lymph % (Auto) 5.1 L (20-44) % [place] % (Auto) 6.7 (0.0-11.0) % Eos % (Auto) 0.2 (0.0-7.0) % Baso % (Auto) 0.2 (0.0-3.0) % Neut # (Auto) 16.60 H (1.7-7.0) K/uL Lymph # (Auto) 1.00 (0.90-2.90) K/uL [place] # (Auto) 1.30 H (0.00-0.90) K/UL Eos # (Auto) 0.00 (0.00-0.50) K/uL Baso # (Auto) 0.00 (0.00-0.30) K/uL Abs Immat Gran (auto) 0.10 (0.00-0.30) K/uL Imm/Tot Granulo (auto) 0.4 % Sodium 137 (135-149) mmol/L Potassium 2.4 L* (3.6-5.1) mmol/L Chloride 94 L (96-114) mmol/L Carbon Dioxide 37 H (20-32) mmol/L Anion Gap 6 L (7-15) mEq/L BUN 25 (7-30) mg/dL Creatinine 0.9 (0.5-1.5) mg/dL Estimated Creat Clear 73.29 Estimated GFR 91 ml/min Glucose 118 H (60-115) mg/dL Lactate 2.7 H 2.1 H (0.5-1.9) mmol/L Calcium 9.1 (8.4-10.6) mg/dL C-Reactive Protein 18.2 H (0.5-1.0) mg/dL Urine Color Cancelled Urine Appearance Cancelled Urine pH Cancelled Ur Specific [place] Cancelled Urine Protein Cancelled Urine Glucose (UA) Cancelled Urine Ketones Cancelled Urine Blood Cancelled Urine Nitrite Cancelled Urine Bilirubin Cancelled Urine Urobilinogen Cancelled Ur Leukocyte Esterase Cancelled Urine RBC Cancelled Urine WBC Cancelled Urine WBC Clumps Cancelled Ur Squamous Epith Cells Cancelled Luis Enrique Biurate Crystals Cancelled Calcium Carbonate Cryst Cancelled Calcium Phosphate Cryst Cancelled Calcium Oxalate Crystal Cancelled Cystine Crystals Cancelled Uric Acid Crystals Cancelled Triple Phos Crystals Cancelled Sulfur Crystals Cancelled Cholesterol Crystals Cancelled Tyrosine Crystals Cancelled Hippuric Acid Crystals Cancelled Amorphous Sediment Cancelled Other Sediment Cancelled Urine Bacteria Cancelled Fatty Casts Cancelled Hyaline Casts Cancelled Fine Granular Casts Cancelled Coarse Granular Casts Cancelled Waxy Casts Cancelled RBC Casts Cancelled WBC Casts Cancelled Other Casts Cancelled Urine Starch Cancelled Urine Mucus Cancelled Urine Trichomonas Cancelled Urine Yeast Cancelled Discharge Plan Discharge Prescriptions: No Action nitroglycerin 0.4 mg tablet, sublingual 0.4 mg sublingual Q5M PRN psyllium Powder 1 tbsp PO ONCE Rx Instructions: mix into at least 8 oz of water or juice before administering polyethylene glycol Powder 17 ea miscellaneous .QD isosorbide mononitrate 30 mg tablet extended release 24 hr 30 mg PO QDAY Qty: 90 3RF atorvastatin 40 mg tablet 40 mg PO DAILY Qty: 90 3RF dicyclomine 10 mg capsule 10 mg PO BID PRN (Reason: abd pain) Qty: 60 11RF empagliflozin 25 mg tablet 12.5 mg PO DAILY Qty: 45 3RF furosemide 20 mg tablet 20 mg PO DAILY Qty: 90 3RF lisinopril-hydrochlorothiazide 10-12.5 mg tablet 0.5 tab PO DAILY Qty: 45 3RF ondansetron 4 mg tablet,disintegrating 4 mg PO Q6H PRN (Reason: nausea and vomiting) Qty: 60 5RF spironolactone 25 mg tablet 12.5 mg PO DAILY Qty: 45 3RF aspirin [Adult Aspirin Regimen] 81 mg tablet,delayed release (DR/EC) 81 mg PO DAILY Follow Up/Referrals: Steven Sheth MD [Primary Care Provider] -
[2024-04-23 07:58] LABS: Lactate Sepsis 2 Hour 2.1 mmol/L (0.5-1.9)
[2024-04-23] MEDS: POTASSIUM CHLORIDE 10 MEQ/100 ML PIGGYBACK 100 MEQ IVPB (08:07)
[2024-04-23 10:26] VITALS: BP 133/72; PULSE 73; RESP 18
== END 2024-04-23 10:27 | disposition other institution, planned readmission (95) ==
LOC: ED 07:06
PROVIDERS: Emergency Provider Emergency Medicine; PCP Family Medicine
DX: K57.32 Diverticulitis of large intestine without perforation or abscess without bleeding (principal)
CPT/HCPCS: 36415; 74177; 80048; 81001; 83605; 85025; 86140; 87040; 87086; 87186; 93005; 96365; 99284; 99285; J3480; Q9967

== ENCOUNTER 2024-04-23 10:16 | Outpatient (CLI) | payer OTHER, MEDICARE, SELFPAY ==
--- OUTSIDE RECORDS SUMMARY | 2024-05-04 00:58 | XMS_ITS | Encounter Summary ---
Author Name [facility] Address [address] [place] [address] Care Team Providers Care Educational Technology Specialist Name Role Phone JATINDER CABRERA Primary Care [...] PART A Sep 29, 2016 PART A [phone] JUDY WEAVER PATIENT Selected Encounter This section includes the information on record at [place] for the Encounter. Date/Time Encounter Type Encounter Description Reason Pro vider Source Oct 05, 2023 02:00 PM OFFICE O/P NEW MOD 45 MIN GASTROENTEROLOGY ICD-10-CM K59.00 Constipation, unspecified DIONNE PUGH [facility] Encounter Template Text not used by [place] Assessments - Encounter Diagnoses This section includes the primary and secondary diagnoses documented for the Encounter. Date/Time Primary/Secondary Diagnosis Diagnosis Name Provider Source Oct 05, 2023 03:32 PM PRIMARY Constipation, unspecified ROXIEMAYA [facility] Plan of Treatment: Future Appointments (+ 6 months) and Future Tests (+/- 45 days) The Plan of Treatment section includes future care activities for the patient [facility] This section includes future appointments and future orders which are active, pending or scheduled. Future Appointments This section includes appointments that were scheduled to occur 6 months from the date of the Encounter, up to a maximum of 20 appointments. The data comes from all [place] treatment facilities. Appointment Date/Time Appointment Type Appointme nt Facility Name Nov 29, 2023 07:45 AM AMBULATORY - SURGERY CARLOS COLUNGA [facility] December 29, 2023 08:45 AM AMBULATORY - SURGERY CARLOS BRENNANLIS [facility] January 24, 2024 07:00 AM AMBULATORY - NONE RIMMA VARGHESE [facility] Jan 30, 2024 09:30 AM AMBULATORY - MEDICINE WILFREDO KHANNA [facility] Vital Signs: All taken on the encounter date This section contains inpatient and outpatient Vital Signs collected on the date of the Encounter. Date/Time Temperature Pulse Blood Pressure Respiratory Rate SP02 Pain Height Weight Body Mass Index Source Oct 05, 2023 01:39 PM 97.6 56 149/66 18 97 0 71 225 31 JAIME LOZANO [facility] Social History: Smoking Status (Most current) and Tobacco Use (All prior to encounter date) This section includes the most current, and the historical, smoking and tobacco- related health factors from the [place] facility where the Encounter took place. Current Smoking Status This section includes the most current smoking, or tobacco-related health factor, from the [place] facility where the Encounter took place. Date/Time Current Smoking Status Comment Facil ity May 06, 2023 11:30 AM 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 [facility] Tobacco Use History This section includes a history of the smoking, or tobacco-related health factors, that were collected on or before the date of the Encounter. The data comes from the [place] facility where the Encounter took place. Date/Time Smoking Status/Tobacco Use Comment F acility May 06, 2023 11:30 AM VA-TOBACCO QUIT 15 YRS OR MORE [facility] Jun 04, 2022 09:00 AM 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 [facility] Jun 04, 2022 09:00 AM VA-TOBACCO QUIT 15 YRS OR MORE [facility] Jul 10, 2021 08:00 AM 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 [facility] Jul 10, 2021 08:00 AM VA-TOBACCO QUIT 5 TO < 15 YRS [facility] May 23, 2020 08:30 AM 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 [facility] May 23, 2020 08:30 AM VA-TOBACCO QUIT 5 TO < 15 YRS [facility] Mar 20, 2019 04:03 PM 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 [facility] Mar 20, 2019 04:03 PM DE-TOBACCO QUIT 5 TO < 15 YRS [facility] Mar 21, 2018 08:13 AM FORMER TOBACCO USER 7Y OR GREATE R [facility] Feb 24, 2017 09:24 AM FORMER TOBACCO USER 7Y OR GREATE R [facility] January 07, 2016 08:01 AM FORMER TOBACCO USE >1Y <7Y [facility] Feb 03, 2015 07:58 AM FORMER TOBACCO USE <1Y [facility] Feb 26, 2014 08:41 AM CURRENT TOBACCO USER [facility] May 13, 2011 01:45 PM CURRENT TOBACCO USER [facility] Advance Directives: All historical and current Section Date Range: From patient's date of to the date document was created. This section includes ALL of a patient's completed or amended [place] Advance and Rescinded Directives. The entries below indicate that a directive exists for the patient, but an actual copy is not included with this document. The data comes from all [place] facilities. Date Advance Directives Provider Source Mar 23, 2016 CLINICAL WARNING TIM TERAN [facility] Pathology Reports: +/- 30 days [...] the Encounter. The data comes from all [place] treatment facilities. Date/Time Pathology Report Provider Source Sep 26, 2023 03:19 PM LR SURGICAL PATHOL OGY REPORT: LOCAL TITLE: LR SURGICAL PATHOLOGY REPORT STANDARD TITLE: PATHOLOGY REPORT DATE OF NOTE: SEP 26, 2023@15:19:48 ENTRY DATE: SEP 26, 2023@15:19:48 AUTHOR: ZAC TAM EXP COSIGNER: URGENCY: STATUS: COMPLETED $APHDR Reporting Lab: [facility] [CLIA# [id number]] [place] [place] [address] - - - - - - - [...] TAM STAFF PATHOLOGIST, PATHOLOGY & LABORATORY [facility] Signed Sep 26, 2023@15:19 Performing Laboratory: Surgical Pathology Report Performed By: [facility] [CLIA# [id number]] [place] [address] $FTR - - - - - - [...] - - FLACA WEAVER STANDARD FORM 515 ID:[id number] SEX:M :1950 AGE: 72 LOC:[id number] PCP: Jatinder Cabrera /alexi/ ZAC TAM STAFF PATHOLOGIST, PATHOLOGY & LABORATORY [facility] Signed: 09/26/2023 15:19 ZAC TAM [facility] Encounter Notes: All associated encounter notes [...] . No additional CRC surveillance recommended by network consultant. 9. Decreased vitamin D - 02.24.2017 [...] - By 02.13.[address] 03.14.2020 OSH(ED [place], [place]): Pt. Declined Admission. 03.14.2020 CT with Mild Sigmoid diverticulitis. 04.23.2020 ED([facility]): Declined admission. 17. 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 18. Ex-tobacco user 19. Impaired Fasting Glucose ([facility] [id number]) - 02.26.2014 A1c 5.8%. 20. Adrenal mass [...] recommended. 24. Hiatal hernia 25. Shoulder Pain ([facility] [id number]) 26. Trigger finger 27. [facility] - [facility] Primary: Dr. Cathi Simeon, [facility], [place] [address]. Allergies: Reviewed TERAZOSIN (Mar 13, 2015) Pertinent [...] GASTROENTEROLOGY FELLOW Signed: 10/05/2023 15:31 MAYA FAUSTIN [facility] Oct 05, 2023 01:40 PM INTERNAL [...] LPN, LPN Signed: 10/05/2023 13:41 NIKOLAI ROSSI [facility]
--- OUTSIDE RECORDS SUMMARY | 2024-05-04 00:58 | XMS_ITS | Encounter Summary ---
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 Date/Time Encounter Type Encounter Description Reason Provider Source Sep 21, 2023 07:15 AM MOD SED SAME PHYS/QHP 5/>YRS GI ENDOSCOPY ICD-10-CM K63.89 Other specified diseases of intestine SADIA ZAIDI Encounter Template Text not used by OR Assessments - Encounter Diagnoses This section includes the primary and secondary diagnoses documented for the Encounter. Date/Time Primary/Secondary Diagnosis Diagnosis Name Provider Source Sep 21, 2023 12:55 PM PRIMARY Other specified diseases of intestine [facility] Sep 21, 2023 12:55 PM SECONDARY Abnormal findings on dx imaging of prt digestive tract [facility] Sep 21, 2023 12:55 PM SECONDARY Dvrtclos of lg int w/o perforation or abscess w/o bleeding [facility] Sep 21, 2023 12:55 PM SECONDARY 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 [facility] Sep 21, 2023 12:55 PM SECONDARY Other hemorrhoids [facility] Sep 21, 2023 12:55 PM SECONDARY Polyp of colon [facility] Plan of Treatment: Future Appointments (+ 6 months) and Future Tests (+/- 45 days) The Plan of Treatment section includes future care activities for the patient from all [facility]. This section includes future appointments and future orders which are active, pending or scheduled. Future Appointments This section includes appointments that were scheduled to occur 6 months from the date of the Encounter, up to a maximum of 20 appointments. The data comes from all [facility]. Appointment Date/Time Appointment Type Appointme nt Facility Name Oct 05, 2023 02:00 PM AMBULATORY - MEDICINE [facility] Nov 29, 2023 07:45 AM AMBULATORY - SURGERY [facility] December 29, 2023 08:45 AM AMBULATORY - SURGERY [facility] January 24, 2024 07:00 AM AMBULATORY - NONE [facility] Jan 30, 2024 09:30 AM AMBULATORY - MEDICINE [facility] Social History: Smoking Status (Most current) and Tobacco Use (All prior to encounter date) This section includes the most current, and the historical, smoking and tobacco- related health factors from the OR facility where the Encounter took place. Current Smoking Status This section includes the most current smoking, or tobacco-related health factor, from the OR facility where the Encounter took place. 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 The data comes from the [place] facility where the Encounter took place. Date/Time Smoking Status/Tobacco Use Comment F acility May 06, 2023 11:30 AM VA-TOBACCO QUIT 15 YRS OR MORE [facility] Jun 04, 2022 09:00 AM 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 [facility] Jun 04, 2022 09:00 AM VA-TOBACCO QUIT 15 YRS OR MORE [facility] Jul 10, 2021 08:00 AM 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 [facility] Jul 10, 2021 08:00 AM VA-TOBACCO QUIT 5 TO < 15 YRS [facility] May 23, 2020 08:30 AM 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 [facility] May 23, 2020 08:30 AM VA-TOBACCO QUIT 5 TO < 15 YRS [facility] Mar 20, 2019 04:03 PM 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 [facility] Mar 20, 2019 04:03 PM VA-TOBACCO QUIT 5 TO < 15 YRS [facility] Mar 21, 2018 08:13 AM FORMER TOBACCO USER 7Y OR GREATE R [facility] Feb 24, 2017 09:24 AM FORMER TOBACCO USER 7Y OR GREATE R [facility] January 07, 2016 08:01 AM FORMER TOBACCO USE >1Y <7Y [facility] Feb 03, 2015 07:58 AM FORMER TOBACCO USE <1Y [facility] Feb 26, 2014 08:41 AM CURRENT TOBACCO USER [facility] May 13, 2011 01:45 PM CURRENT TOBACCO USER [facility] Advance Directives: All historical and current Section Date Range: From patient's date of to the date document was created. This section includes ALL of a patient's completed or amended OR Advance and Rescinded Directives. The entries below indicate that a directive exists for the patient, but an actual copy is not included with this document. The data comes from all [facility]. Date Advance Directives Provider Source Mar 23, 2016 CLINICAL WARNING [facility] Pathology Reports: +/- 30 days of [...] the Encounter. The data comes from all [place] treatment facilities. Date/Time Pathology Report Provider Source Sep 26, 2023 03:19 PM LR SURGICAL PATHOL OGY REPORT: LOCAL TITLE: LR SURGICAL PATHOLOGY REPORT STANDARD TITLE: PATHOLOGY REPORT DATE OF NOTE: SEP 26, 2023@15:19:48 ENTRY DATE: SEP 26, 2023@15:19:48 AUTHOR: ZAC TAM EXP COSIGNER: URGENCY: STATUS: COMPLETED $APHDR Reporting Lab: [facility] [CLIA# [id number]] [address] [place] [address] - - - - - - - [...] - - - PATHOLOGY REPORT Accession No. [id number] - - - - - - [...] TAM STAFF PATHOLOGIST, PATHOLOGY & LABORATORY MED [facility] Signed Sep 26, 2023@15:19 Performing Laboratory: Surgical Pathology Report Performed By: [facility] [CLIA# [id number]] [place] [address] $FTR - - - - - - [...] - - FLACA WEAVER STANDARD FORM 515 ID:[id number] SEX:M :1950 AGE: 72 LOC:[id number] PCP: Jatinder Cabrera /alexi/ ZAC TAM STAFF PATHOLOGIST, PATHOLOGY & LABORATORY MED [facility] Signed: 09/26/2023 15:19 ZAC TAM [facility] Encounter Notes: All associated encounter notes This section contains the clinical notes associated to the Encounter. Date/Time Encounter Note(s) Provider Source Sep 27, 2023 03:27 PM LETTERS: LOCAL TITLE: FOLLOW UP RESULTS LETTER STANDARD TITLE: LETTERS DATE OF NOTE: SEP 27, 2023@15:27 ENTRY DATE: SEP 27, 2023@15:27:09 AUTHOR: SADIA ZAIDI COSIGNER: URGENCY: STATUS: COMPLETED [facility] [address] [place] [address] Aug FLACADARCI WEAVER [address] [facility] [address] Dear : I am writing to inform [...] reached at or toll free at [phone]. [phone]. Sincerely, SADIA ZAIDI MD GASTROENTEROLOGY STAFF PHYSICIAN SADIA ZAIDI [facility] Sep 21, 2023 08:15 AM GASTROENTEROLOGY PREPROCEDURE [...] . No additional CRC surveillance recommended by in home sales consultant. 9. Decreased vitamin D - [...] - By 02.13.[address] 03.14.2020 OSH(ED [place], [place]): Pt. Declined Admission. 03.14.2020 CT with Mild Sigmoid diverticulitis. 04.23.2020 ED([facility]): Declined admission. 17. 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 18. Ex-tobacco user 19. Impaired Fasting Glucose ([facility] [id number]) - 02.26.2014 A1c 5.8%. 20. Adrenal mass [...] 24. Hiatal hernia 25. Shoulder Pain (SCT [id number]) 26. Trigger finger 27. COUNTS [facility] - [facility] Primary: Dr. Cathi Simeon, [facility], [place] [address]. Active Outpatient Medications (including Supplies): Active Outpatient [...] 12.53 (09/01/22) 9.88 (05/06/23) Other Lab tests: [place] [employer] (ASA) Classification: III SPN [...] viewed in the Reports tab-->procedures or in [facility]. /es/ SADIA ZAIDI MD GASTROENTEROLOGY STAFF PHYSICIAN Signed: 09/21/2023 08:[address] [facility]
--- OUTSIDE RECORDS SUMMARY | 2024-05-04 00:58 | XMS_ITS | Continuity of Care Document ---
Author Name [facility] Organization [facility] Care Team Providers Care Form Carpenter Name Role Phone [facility] Unavailable Unavailable Problems Combined list of problems from Department of Defense and Veterans Affairs facilities. It does not include entries that were removed or entered in error. Problem Status Onset Date Problem Type Date of Resolution Comments Source Multiple nodules of lung Active 11/12/19 21 Condition Nov 24, 2021 Entered By: MICHELL WHEELER Comment: 11.11.2020 Initial LDCT. 11.24.2021 LDCT completed. 12 month surveillance recommended. [facility] Abdominal aortic aneurysm Active 05/05/20 20 Condition May 08, 2020 Entered By: MICHELL WHEELER Comment: 05.05.[address]: O.9cm thrombosed saccular aneurysm to distal abdominal aorta. [facility] Pancreatic cyst Active 05/05/20 20 Condition Jul 24, 2021 Entered By: MICHELL WHEELER Comment: 05.05.[address]: 0.7cm low-attenuatio n lesion tail of pancrease. Annual surveillance x 5 yr suggested for lesions < 1.5cm. 07.24.2021 CT completed. [facility] Diverticular disease Active 02/14/20 19 Condition 05/23/2020 Nov 13, 2020 Entered By: MICHELL WHEELER Comment: By 02.13.[address] 03.14.2020 [facility](ED [place], [place]): Pt. Declined Admission. 03.14.2020 CT with Mild Sigmoid diverticulitis . 04.23.2020 ED(OS[facility]): Declined admission. [facility] Steatosis of liver Active 02/14/20 19 Condition Feb 16, 2019 Entered By: MICHELL WHEELER Comment: By 02.13.[address] [facility] Decreased vitamin D Active 02/25/20 17 Condition Jul 13, 2021 Entered By: MICHELL WHEELER Comment: 02.24.2017 Vitamin D 26ng/mL. [facility] Colonoscopy normal Active 05/28/20 14 Condition Jul 07, 2020 Entered By: MICHELL WHEELER Comment: 05.28.2014 Procedure: No biopsies. 07.07.2020 Procedure: No Biopsoes . No additional CRC surveillance recommended by direct response consultant. [facility] Impaired Fasting Glucose (SCT [id number]) Active 02/27/20 14 Condition Jul 13, 2021 Entered By: MICHELL WHEELER Comment: 02.26.2014 A1c 5.8%. [facility] Carpal tunnel syndrome Active 11/29/19 12 Condition Jul 13, 2021 Entered By: MICHELL WHEELER Comment: 11.29.2011 Abnormal LUE EMG (C-7 & Median N.). 01.15.2016 Abnormal RUE EMG(Median N.). [facility] Adrenal mass Active Condition Jul 24, 2021 Entered By: MICHELL WHEELER Comment: 03.14.[address]: Stable 1.4cm L Adrenal Nodule. 05.05.[address]: 1.5cm L Adrenal Nodule. 07.24.2021 CT completed. [facility] Aneurysm of common iliac artery Active Condition Jul 16, 2021 Entered By: MICHELL WHEELER Comment: 03.21.2017 U/S: L 2.0. 02.13.2019 CT: 2.0cm(R/L). 05.05.2020 CT: 1.9cm(R/L). 07.16.2021 R GAIL 1.9cm. L GAIL 2.0cm. [facility] Cannabis misuse Active Condition [facility] Cervicalgia Active Condition Apr 07, 2017 Entered By: MICHELL WHEELER Comment: 03.22.2017 C-S MRI: Advanced Cervical Spondylosis; Multi-level High Grade Foraminal Narrowing. [facility]ITC Primary Care Active Condition 2022 Entered By: MICHELL WHEELER Comment: [facility] Primary: Dr. Cathi Simeon, [facility], [place] [address]. [facility] Coronary artery disease Active Condition Feb 24, 2017 Entered By: MICHELL WHEELER Comment: 03.23.2016 PCI: RCA stent(s). 12 month clopidogrel prescribed. [facility] Ex-tobacco user Active Condition [facility] Hiatal hernia Active Condition [facility] VARGHESE [facility] History of surgery Active Condition D 2017 Entered By: MICHELL WHEELER Comment: 09.02.2014 Left CTR. 09.03.2015 Hemorrhoidecto my. [facility] Hyperlipidemia Active Condition [facility] Hypertension Active Condition [facility] M[facility] Impulse control disorder Active Condition [facility] Infarction of kidney Active Condition Feb 16, 2019 Entered By: MICHELL WHEELER Comment: By 02.13.[address]: Large old infarction interpolar region and upper pole of R kidney. [facility] Pain of both knees Active Condition [place] [facility] Shoulder Pain (SCT [id number]) Active Condition [facility] Sleep apnea Active Condition Feb 24, 2017 Entered By: MICHELL WHEELER Comment: CPAP has been prescribed - not routinely using device. [facility] Trigger finger Active Condition [facility] Wrist pain Active Condition [facility] Diagnosis: ICD-10-CM K57.20 Dvtrcli of lg int w perforation and abscess w/o bleeding Active Diagnosis [facility] Diagnosis: ICD-10-CM R94.31 Abnormal electrocardiogram [ECG] [EKG] Active Diagnosis [facility] Diagnosis: ICD-10-CM I44.1 Atrioventricular block, second degree Active Diagnosis [facility] K[facility] Admit Reason: DIVERTICULITIS ABSC W/FIST Active Diagnosis [facility] Diagnosis: ICD-10-CM N32.81 Overactive bladder Active Diagnosis [facility] Diagnosis: ICD-10-CM I25.10 Athscl heart disease of [place] coronary artery w/o ang pctrs Active Diagnosis [facility] Diagnosis: ICD-10-CM H90.3 Sensorineural hearing loss, bilateral Active Diagnosis [facility] Diagnosis: ICD-10-CM Z01.118 Encntr for exam of ears and hearing w oth abnormal findings Active Diagnosis [facility] Diagnosis: ICD-10-CM K59.00 Constipation, unspecified Active Diagnosis [facility] Diagnosis: ICD-10-CM K63.89 Other specified diseases of intestine Active Diagnosis [facility] Diagnosis: ICD-10-CM Z72.0 Tobacco use Active Diagnosis [facility] Diagnosis: ICD-10-CM K57.32 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 Active Diagnosis [facility] Diagnosis: ICD-10-CM H60.513 Acute actinic otitis externa, bilateral Active Diagnosis [place] MAR[place] [facility] Medications Combined list of outpatient medications from Department of Defense and Veterans Affairs facilities.Medications provided include 1) outpatient medications from the last 15 months, and 2) patient-reported medications. Medication Details Route Status Patient Instructions Prescription Expires Prescription Number Last Dispense Date Ordering Provider Order Date Order Qty Source ACETAMINOPH EN 325MG TAB ACETAMIN OPHEN 325MG TAB Active TAKE TWO TABLETS BY MOUTH EVERY 6 HOURS NEEDED FOR PAIN PAIN Apr 26, 2024 300 Apr 27, 2025 [id number] Apr 26, 2024 JOSE RANDOLPH [facility] ORAL ACTIVE 04/27/2025 [id number] JOSE RANDOLPH 2023 300 [facility] AMOXICILLIN TRIHYDRATE 875MG/CLAVU LANATE K 125MG TAB AMOXICIL MARCIA TRIHYDRA TE 875MG/CL AVULANAT E K 125MG TAB Active TAKE 1 TABLET BY MOUTH TWICE A DAY ABSCESS, COLOVESI CULAR FISTULA Apr 26, 2024 20 May 26, 2024 [id number] Apr 26, 2024 JOSE RANDOLPH [facility] ORAL ACTIVE 05/26/2024 [id number] JOSE RANDOLPH 2023 20 [facility] ATORVASTATI N CA 40MG TAB ATORVAST ATIN CA 40MG TAB Active TAKE ONE-HALF TABLET BY MOUTH AT BEDTIME FOR CHOLESTE ROL Jul 15, 2023 45 Jul 15, 2024 [id number] Apr 03, 2024 LINO WEINBERG [facility] ORAL ACTIVE 07/15/2024 [id number] JATINDER BENITEZ 2022 45 [facility] ATORVASTATI N CA 40MG TAB ATORVAST ATIN CA 40MG TAB TAKE ONE-HALF TABLET BY MOUTH AT BEDTIME FOR CHOLESTE ROL May 14, 2022 45 May 15, 2023 [id number] Mar 25, 2023 EYAD CASON [facility] ORAL 05/15/2023 [id number] EYAD CASON 2021 45 [place] [facility] BISACODYL 5MG TAB,EC BISACODY L 5MG TAB,EC TAKE TWO TABLETS BY MOUTH ONCE FOR COLON PREP FOR COLON PREP Aug 15, 2023 2 Sep 14, 2023 [id number] Aug 15, 2023 [facility] 09/14/2023 [id number] PRAFUL RODRIGUEZ 2022 2 [facility] EMPAGLIFLOZ IN 25MG TAB EMPAGLIF LOZIN 25MG TAB Active TAKE ONE-HALF TABLET BY MOUTH EVERY DAY January 16, 2024 45 January 16, 2025 [id number] January 17, 2024 LINO WEINBERGO [place] [facility] ORAL ACTIVE 01/16/2025 [id number] JATINDER BENITEZ 2023 45 [facility] [place] [facility] EMPAGLIFLOZ IN 25MG TAB EMPAGLIF LOZIN 25MG TAB TAKE ONE-HALF TABLET BY MOUTH EVERY DAY Oct 25, 2022 45 Oct 26, 2023 [id number] A 2023 [facility] 10/26/2023 [id number] JATINDER BENITEZ 2022 45 [facility] FUROSEMIDE 20MG TAB FUROSEMI DE 20MG TAB Disconti nued TAKE ONE TABLET BY MOUTH EVERY DAY NEEDED FOR EXCESS FLUID TAKE ONE TABLET FOR WEIGHT GAIN OF 3 POUNDS OVERNIGH T OR MORE THAN 5 POUNDS IN 1 WEEK OR LEG SWELLING FOR EXCESS FLUID January 16, 2024 90 January 16, 2025 [id number] Apr 06, 2024 [facility] DISCONT INUED 01/16/2025 [id number] JATINDER BENITEZ 2023 90 [place] [facility] FUROSEMIDE 20MG TAB FUROSEMI DE 20MG [...] Oct 25, 2022 90 Oct 26, 2023 [id number] Sep 19, 2023 [facility] 10/26/2023 [id number] JATINDER BENITEZ 2022 90 [place] [facility] HYDROCHLORO THIAZIDE 12.5MG/NANDO NOPRIL 10MG TAB HYDROCHL OROTHIAZ FIORELLA 12.5MG/L ISINOPRI L 10MG TAB Disconti nued TAKE ONE HALF TABLET BY MOUTH EVERY DAY FOR BLOOD PRESSURE FOR BLOOD PRESSURE Nov 21, 2023 45 Nov 21, 2024 [id number] January 13, 2024 [facility] DISCONT INUED 11/21/2024 [id number] JATINDER BENITEZ 2023 45 [place] [facility] [facility] HYDROCHLORO THIAZIDE 12.5MG/NANDO NOPRIL 10MG TAB HYDROCHL OROTHIAZ FIORELLA 12.5MG/L ISINOPRI L 10MG TAB TAKE ONE HALF TABLET BY MOUTH EVERY DAY FOR BLOOD PRESSURE FOR BLOOD PRESSURE Oct 25, 2022 45 Oct 26, 2023 [id number] Aug 17, 2023 LIN[place] [facility] ORAL 10/26/2023 [id number] JATINDER BENITEZ 2022 45 [place] [facility] [facility] ISOSORBIDE MONONITRATE 30MG TAB,SA ISOSORBI DE MONONITR ATE 30MG TAB,SA Active TAKE ONE TABLET BY MOUTH EVERY DAY FOR CHEST PAIN FOR CHEST PAIN Dec 19, 2023 90 Dec 19, 2024 [id number] Mar 09, 2024 [facility] 12/19/2024 [id number] JATINDER BENITEZ 2023 90 [place] [facility] ISOSORBIDE MONONITRATE 30MG TAB,SA ISOSORBI DE MONONITR ATE 30MG TAB,SA TAKE ONE TABLET BY MOUTH EVERY DAY FOR CHEST PAIN FOR CHEST PAIN Oct 25, 2022 90 Oct 26, 2023 [id number] Sep 19, 2023 [facility] [facility] [facility] 10/26/2023 [id number] JATINDER BENITEZ 2022 90 [place] [facility] NITROGLYCER IN 0.4MG TAB,SUBLING UAL NITROGLY CERIN 0.4MG TAB,SUBL INGUAL Active DISSOLVE ONE TABLET UNDER THE TONGUE THREE TIMES A DAY NEEDED CHEST PAIN FOR CHEST PAIN * MAY REPEAT EVERY 5 MINUTES- -NO MORE THAN 3 TOTAL CHEST PAIN Nov 21, 2023 100 Nov 21, 2024 [id number] Nov 21, 2023 [facility] WEINBERG [facility] SUBLIN GUAL ACTIVE 11/21/2024 [id number] 4 JATINDER BENITEZ 2023 100 [place] [facility] NITROGLYCER IN 0.4MG TAB,SUBLING UAL NITROGLY CERIN 0.4MG TAB,SUBL INGUAL Disconti nued DISSOLVE ONE TABLET UNDER THE TONGUE THREE TIMES A DAY NEEDED FOR CHEST PAIN * MAY REPEAT EVERY 5 MINUTES- -NO MORE THAN 3 TOTAL CHEST PAIN May 13, 2023 100 May 13, 2024 [id number] May 13, 2023 [facility] SUBLIN GUAL DISCONT INUED 05/13/2024 [id number] 3 JATINDER BENITEZ 2022 100 [place] [facility] PEG-3350/EL ECTROLYTES PWDR PEG-3350 /ELECTRO LYTES PWDR TAKE ONE CONTAINE R BY MOUTH DIRECTED FOR COLON PREP FOR COLON PREP Aug 15, 2023 1 Sep 14, 2023 [id number] Aug 15, 2023 [facility] OR[facility] 09/14/2023 [id number] PRAFUL RODRIGUEZ 2022 1 [facility] PHENAZOPYRI DINE HCL 100MG TAB PHENAZOP YRIDINE HCL 100MG TAB Active TAKE TWO TABLETS BY MOUTH THREE TIMES A DAY NEEDED FOR BLADDER PAIN BLADDER PAIN Apr 26, 2024 90 May 26, 2024 [id number] Apr 26, 2024 [facility] ORAL ACTIVE 05/26/2024 [id number] JOSE RANDOLPH 2023 90 [facility] PSYLLIUM PWDR,ORAL PSYLLIUM PWDR,ORA L Active TAKE 2 TEASPOON SFUL BY MOUTH EVERY DAY FOR CONSTIPA TION FOR CONSTIPA TION Jan 30, 2024 1170 Jan 30, 2025 [id number] Jan 31, 2024 LINO WEINBERG [facility] ORAL ACTIVE 01/30/2025 [id number] 4 JATINDER BENITEZ 2023 1170 [facility] PSYLLIUM PWDR,ORAL PSYLLIUM PWDR,ORA L Disconti nued TAKE 2 TEASPOON SFUL BY MOUTH EVERY DAY FOR CONSTIPA TION FOR CONSTIPA TION Oct 05, 2023 390 Oct 05, 2024 [id number] January 27, 2024 PUMA FAUSTIN [facility] ORAL DISCONT INUED (EDIT) 10/05/2024 [id number] 4 JACOB FAUSTIN 2023 390 [facility] SPIRONOLACT ONE 25MG TAB SPIRONOL ACTONE 25MG TAB Active TAKE ONE-HALF TABLET BY MOUTH EVERY DAY FOR BLOOD PRESSURE FOR BLOOD PRESSURE Jan 30, 2024 45 Jan 30, 2025 [id number] Feb 08, 2024 [facility]INBERG [facility] ORAL ACTIVE 01/30/2025 [id number] JATINDER BEINTEZ 2023 45 [facility] SPIRONOLACT ONE 25MG TAB SPIRONOL ACTONE 25MG TAB Disconti nued TAKE ONE-HALF TABLET BY MOUTH EVERY DAY January 13, 2024 15 January 13, 2025 [id number] D January 16, 2024 [facility]CONT [facility]UED (EDIT) 01/13/2025 [id number] MONDRAGONKAYCE ICA C 2023 15 [facility] SPIRONOLACT ONE 25MG TAB SPIRONOL ACTONE 25MG TAB Disconti nued TAKE ONE-HALF TABLET BY MOUTH EVERY DAY Aug 18, 2023 15 Aug 18, 2024 [id number] C Nov 03, 2023 Alex MONDRAGON [facility] ORAL DISCONT INUED 08/18/2024 [id number] KAYCE MONDRAGON ICA C 2022 15 [facility] SPIRONOLACT ONE 25MG TAB SPIRONOL ACTONE 25MG TAB Disconti nued TAKE ONE-HALF TABLET BY MOUTH EVERY DAY May 06, 2023 15 May 06, 2024 [id number] B Jul 15, 2023 LINO WEINBERG [facility] ORAL DISCONT INUED 05/06/2024 [id number] JATINDER BENITEZ 2022 15 [facility] SPIRONOLACT ONE 25MG TAB SPIRONOL ACTONE 25MG TAB Disconti nued TAKE ONE-HALF TABLET BY MOUTH EVERY DAY January 26, 2023 15 January 27, 2024 [id number] Apr 06, 2023 LINO WEINBERG [facility] ORAL DISCONT INUED 01/27/2024 [id number] JATINDER BENITEZ 2022 15 [facility] Allergies, Adverse Reactions, Alerts Combined list of allergies from Department of Defense and Veterans Affairs facilities. It does not include entries that were removed or entered in error. Substance Category Reaction Severity Reaction type Status Date Reported Comments Source TERAZOSIN Propensity to adverse reactions to drug (finding) Nausea active 5 [facility] Immunizations Combined list of available immunizations from the Department of Defense and Veterans Affairs facilities. Immunization Series Date Given Administered By Site Reaction Lot Number CVX Code Drug Pediatrician Active Practice Status Comments Source COVID-19 (Asthmatracker), MRNA, LNP-S, PF, CORINA-SUCROSE, 30 MCG/0.3 ML (AGES 12+ YEARS) 2023 GONZÁLEZ BERGERON LEFT DELTO ID [id number] 309 complet ed [facility] COVID-19 (Asthmatracker), MRNA, LNP-S, BIVALENT BOOSTER, PF, 30 MCG/0.3 ML DOSE 1 2022 LISA WILSON LEFT DELTO ID [id number] 300 complet ed [facility] INFLUENZA VACCINE, QUADRIVALENT, ADJUVANTED 2021 205 complet ed [facility] INFLUENZA, UNSPECIFIED FORMULATION 2021 88 complet ed [facility] COVID-19 (Asthmatracker), MRNA, LNP-S, PF, 30 MCG/0.3 ML DOSE, CORINA-SUCROSE (AGES 12+ YEARS) 4 2021 217 complet ed PFR; [id number]; 2 [facility] ZOSTER RECOMBINANT 2 2021 187 complet ed [facility] COVID-19 (Asthmatracker), MRNA, LNP-S, PF, 30 MCG/0.3 ML DOSE 2021 208 complet ed [facility] ZOSTER, UNSPECIFIED FORMULATION 2021 188 complet ed [facility] TDAP 2021 115 complet ed [facility] ZOSTER RECOMBINANT 1 2021 187 complet ed [facility] ZOSTER, UNSPECIFIED FORMULATION 2021 188 complet ed [facility] COVID-19 (Asthmatracker), MRNA, LNP-S, PF, 30 MCG/0.3 ML DOSE 3 2020 208 complet ed PRF; [id number]; 2 [facility] INFLUENZA, INJECTABLE, QUADRIVALENT, PRESERVATIVE FREE 2020 150 complet ed [facility] COVID-19 (Asthmatracker), MRNA, LNP-S, PF, 30 MCG/0.3 ML DOSE 2 2020 208 complet ed PFR; [id number]; 1 [facility] COVID-19 (Asthmatracker), MRNA, LNP-S, PF, 30 MCG/0.3 ML DOSE 1 2020 208 complet ed PFR; [id number]; 1 [facility] INFLUENZA, INJECTABLE, QUADRIVALENT, PRESERVATIVE FREE 2019 150 complet ed [facility] INFLUENZA, SEASONAL, INJECTABLE, PRESERVATIVE FREE 2018 140 complet ed [facility] INFLUENZA, UNSPECIFIED FORMULATION 2018 88 complet ed [facility] PNEUMOCOCCAL POLYSACCHARID E PPV23 2018 33 complet ed [place] and [place],[id number] 20 [facility] INFLUENZA, SEASONAL, INJECTABLE, PRESERVATIVE FREE 2017 140 complet ed [facility] INFLUENZA, HIGH DOSE SEASONAL 2016 135 complet ed [facility] PNEUMOCOCCAL CONJUGATE PCV 13 2016 133 complet ed [place] [id number] EXP: 12/2017 [facility] INFLUENZA, SEASONAL, INJECTABLE, PRESERVATIVE FREE 2014 140 complet ed [facility] PNEUMOCOCCAL POLYSACCHARID E PPV23 2013 33 complet ed 000 [facility] PNEUMOCOCCAL, UNSPECIFIED FORMULATION 2013 109 complet ed [facility] ZOSTER LIVE 2013 121 complet ed 0000 [facility] INFLUENZA, UNSPECIFIED FORMULATION 2010 88 complet ed [facility] TDAP 2010 115 complet ed aaaa [facility] Results Combined list of recent chemistry, hematology and other laboratory results from Department of Defense and Veterans Affairs, ranging from 15 months to all on record, depending upon the facility. Order Name Results Value Reference Range Date Interpretation Specimen Comments Source BASIC METABOLIC PANEL+MG CREATININE [MASS/VOLUM E] IN SERUM OR PLASMA 0.7 mg/dL 0.7 - 1.2 04/26 Specimen Type: PLASMA No comment entered. Ordering Provider: BEATA RANDOLPH Report Released Date/Time: Apr 25, 2024 02:50 PM Reporting Lab: [facility] [address] Performing Lab: [facility] [address] [facility] BASIC METABOLIC PANEL+MG UREA NITROGEN [MASS/VOLUM E] IN SERUM OR PLASMA 15 mg/dL 8 - 04/26 Specimen Type: PLASMA No comment entered. Ordering Provider: BEATA RANDOLPH Report Released Date/Time: Apr 25, 2024 02:50 PM Reporting Lab: [facility] [address] Performing Lab: [facility] [address] [place] [facility] BASIC METABOLIC PANEL+MG GLUCOSE [MASS/VOLUM E] IN SERUM OR PLASMA 106 mg/dL 70 - 100 04/26 H Specimen Type: PLASMA No comment entered. Ordering Provider: BEATA RANDOLPH Report Released Date/Time: Apr 25, 2024 02:50 PM Reporting Lab: [facility] [address] Performing Lab: [facility] [address] [place] [facility] BASIC METABOLIC PANEL+MG SODIUM [MOLES/VOLU ME] IN SERUM OR PLASMA 139 mmol/L 136 - 145 04/26 Specimen Type: PLASMA No comment entered. Ordering Provider: BEATA RANDOLPH Report Released Date/Time: Apr 25, 2024 02:50 PM Reporting Lab: [facility] [address] Performing Lab: [facility] [address] [place] [facility] BASIC METABOLIC PANEL+MG POTASSIUM [MOLES/VOLU ME] IN SERUM OR PLASMA 3.4 mmol/L 3.5 - 5.1 04/26 L Specimen Type: PLASMA No comment entered. Ordering Provider: BEATA RANDOLPH Report Released Date/Time: Apr 25, 2024 02:50 PM Reporting Lab: [facility] [address] Performing Lab: [facility] [address] [place] [facility] BASIC METABOLIC PANEL+MG CHLORIDE [MOLES/VOLU ME] IN SERUM OR PLASMA 105 mmol/L 98 - 107 04/26 Specimen Type: PLASMA No comment entered. Ordering Provider: BEATA RANDOLPH Report Released Date/Time: Apr 25, 2024 02:50 PM Reporting Lab: [facility] [address] Performing Lab: [facility] [address] [place] [facility] BASIC METABOLIC PANEL+MG CARBON DIOXIDE, TOTAL [MOLES/VOLU ME] IN SERUM OR PLASMA 25 mmol/L 22 - 29 04/26 Specimen Type: PLASMA No comment entered. Ordering Provider: BEATA RANDOLPH Report Released Date/Time: Apr 25, 2024 02:50 PM Reporting Lab: [facility] [address] Performing Lab: [facility] [address] [place] [facility] BASIC METABOLIC PANEL+MG CALCIUM [MASS/VOLUM E] IN SERUM OR PLASMA 8.5 mg/dL 8.4 - 10.2 04/26 Specimen Type: PLASMA No comment entered. Ordering Provider: BEATA RANDOLPH Report Released Date/Time: Apr 25, 2024 02:50 PM Reporting Lab: [facility] [address] Performing Lab: [facility] [address] [place] [facility] BASIC METABOLIC PANEL+MG MAGNESIUM [MASS/VOLUM E] IN SERUM OR PLASMA 2.2 mg/dL 1.6 - 2.6 04/26 Specimen Type: PLASMA No comment entered. Ordering Provider: BEATA RANDOLPH Report Released Date/Time: Apr 25, 2024 02:50 PM Reporting Lab: [facility] [address] Performing Lab: [facility] [address] [place] [facility] BASIC METABOLIC PANEL+MG ANION GAP IN SERUM OR PLASMA 9 mmol/L 5 - 15 04/26 Specimen Type: PLASMA No comment entered. Ordering Provider: BEATA RANDOLPH Report Released Date/Time: Apr 25, 2024 02:50 PM Reporting Lab: [facility] [address] Performing Lab: [facility] [address] [place] [facility] BASIC METABOLIC PANEL+MG GLOMERULAR FILTRATION RATE/1.73 SQ M.PREDICTED [VOLUME RATE/AREA] IN SERUM, PLASMA OR BLOOD BY CREATININE- BASED FORMULA (CKD-EPI 2020) >90 60 04/26 Specimen Type: PLASMA No comment entered. Ordering Provider: BEATA RANDOLPH Report Released Date/Time: Apr 25, 2024 02:50 PM Reporting Lab: [facility] [address] Performing Lab: [facility] [address] [place] [facility] BASIC METABOLIC PANEL+MG CREATININE [MASS/VOLUM E] IN SERUM OR PLASMA 0.7 mg/dL 0.7 - 1.2 04/25 Specimen Type: PLASMA No comment entered. Ordering Provider: PRAFUL ADLER Report Released Date/Time: Apr 25, 2024 05:04 PM Reporting Lab: [facility] [address] Performing Lab: [facility] [address] [place] [facility] BASIC METABOLIC PANEL+MG UREA NITROGEN [MASS/VOLUM E] IN SERUM OR PLASMA 15 mg/dL 8 - 04/25 Specimen Type: PLASMA No comment entered. Ordering Provider: PRAFUL ADLER Report Released Date/Time: Apr 25, 2024 05:04 PM Reporting Lab: [facility] [address] Performing Lab: [facility] [address] [place] [facility] BASIC METABOLIC PANEL+MG GLUCOSE [MASS/VOLUM E] IN SERUM OR PLASMA 104 mg/dL 70 - 100 04/25 H Specimen Type: PLASMA No comment entered. Ordering Provider: PRAFUL ADLER Report Released Date/Time: Apr 25, 2024 05:04 PM Reporting Lab: [facility] [address] Performing Lab: [facility] [address] [place] [facility] BASIC METABOLIC PANEL+MG SODIUM [MOLES/VOLU ME] IN SERUM OR PLASMA 139 mmol/L 136 - 145 04/25 Specimen Type: PLASMA No comment entered. Ordering Provider: PRAFUL ADLER Report Released Date/Time: Apr 25, 2024 05:04 PM Reporting Lab: [facility] [address] Performing Lab: [facility] [address] [place] [facility] BASIC METABOLIC PANEL+MG POTASSIUM [MOLES/VOLU ME] IN SERUM OR PLASMA 3.2 mmol/L 3.5 - 5.1 04/25 L Specimen Type: PLASMA No comment entered. Ordering Provider: PRAFUL ADLER Report Released Date/Time: Apr 25, 2024 05:04 PM Reporting Lab: [facility] [address] Performing Lab: [facility] [id number] [place] [facility] BASIC METABOLIC PANEL+MG CHLORIDE [MOLES/VOLU ME] IN SERUM OR PLASMA 103 mmol/L 98 - 107 04/25 Specimen Type: PLASMA No comment entered. Ordering Provider: PRAFUL ADLER Report Released Date/Time: Apr 25, 2024 05:04 PM Reporting Lab: [facility] [id number] Performing Lab: [facility] [id number] [place] [facility] BASIC METABOLIC PANEL+MG CARBON DIOXIDE, TOTAL [MOLES/VOLU ME] IN SERUM OR PLASMA 28 mmol/L 22 - 29 04/25 Specimen Type: PLASMA No comment entered. Ordering Provider: PRAFUL ADLER Report Released Date/Time: Apr 25, 2024 05:04 PM Reporting Lab: [facility] [address] Performing Lab: [facility] [address] [place] [facility] BASIC METABOLIC PANEL+MG CALCIUM [MASS/VOLUM E] IN SERUM OR PLASMA 8.5 mg/dL 8.4 - 10.2 04/25 Specimen Type: PLASMA No comment entered. Ordering Provider: PRAFUL ADLER Report Released Date/Time: Apr 25, 2024 05:04 PM Reporting Lab: [facility] [address] Performing Lab: [facility] [address] [place] [facility] BASIC METABOLIC PANEL+MG MAGNESIUM [MASS/VOLUM E] IN SERUM OR PLASMA 2.2 mg/dL 1.6 - 2.6 04/25 Specimen Type: PLASMA No comment entered. Ordering Provider: PRAFUL ADLER Report Released Date/Time: Apr 25, 2024 05:04 PM Reporting Lab: [facility] [address] Performing Lab: [facility] [address] [place] [facility] BASIC METABOLIC PANEL+MG ANION GAP IN SERUM OR PLASMA 8 mmol/L 5 - 15 04/25 Specimen Type: PLASMA No comment entered. Ordering Provider: PRAFUL ADLER Report Released Date/Time: Apr 25, 2024 05:04 PM Reporting Lab: [facility] [address] Performing Lab: [facility] [address] [place] [facility] BASIC METABOLIC PANEL+MG GLOMERULAR FILTRATION RATE/1.73 SQ M.PREDICTED [VOLUME RATE/AREA] IN SERUM, PLASMA OR BLOOD BY CREATININE- BASED FORMULA (CKD-EPI 2020) >90 60 04/25 Specimen Type: PLASMA No comment entered. Ordering Provider: PRAFUL ADLER Report Released Date/Time: Apr 25, 2024 05:04 PM Reporting Lab: [facility] [address] Performing Lab: [facility] [address] [place] [facility] BASIC METABOLIC PANEL+MG CREATININE [MASS/VOLUM E] IN SERUM OR PLASMA 0.7 mg/dL 0.7 - 1.2 04/25 Specimen Type: PLASMA No comment entered. Ordering Provider: PRAFUL ADLER Report Released Date/Time: Apr 24, 2024 12:37 PM Reporting Lab: [facility] [address] Performing Lab: [facility] [address] [place] [facility] BASIC METABOLIC PANEL+MG UREA NITROGEN [MASS/VOLUM E] IN SERUM OR PLASMA 14 mg/dL 8 - 26 04/25 Specimen Type: PLASMA No comment entered. Ordering Provider: PRAFUL ADLER Report Released Date/Time: Apr 24, 2024 12:37 PM Reporting Lab: [facility] [address] Performing Lab: [facility] [address] [place] [facility] BASIC METABOLIC PANEL+MG GLUCOSE [MASS/VOLUM E] IN SERUM OR PLASMA 127 mg/dL 70 - 100 04/25 H Specimen Type: PLASMA No comment entered. Ordering Provider: PRAFUL ADLER Report Released Date/Time: Apr 24, 2024 12:37 PM Reporting Lab: [facility] [address] Performing Lab: [facility] [address] [place] [facility] BASIC METABOLIC PANEL+MG SODIUM [MOLES/VOLU ME] IN SERUM OR PLASMA 139 mmol/L 136 - 145 04/25 Specimen Type: PLASMA No comment entered. Ordering Provider: PRAFUL ADLER Report Released Date/Time: Apr 24, 2024 12:37 PM Reporting Lab: [facility] [address] Performing Lab: [facility] [address] [place] [facility] BASIC METABOLIC PANEL+MG POTASSIUM [MOLES/VOLU ME] IN SERUM OR PLASMA 2.9 mmol/L 3.5 - 5.1 04/25 L Specimen Type: PLASMA No comment entered. Ordering Provider: PRAFUL ADLER Report Released Date/Time: Apr 24, 2024 12:37 PM Reporting Lab: [facility] [address] Performing Lab: [facility] [address] [place] [facility] BASIC METABOLIC PANEL+MG CHLORIDE [MOLES/VOLU ME] IN SERUM OR PLASMA 101 mmol/L 98 - 107 04/25 Specimen Type: PLASMA No comment entered. Ordering Provider: PRAFUL ADLER Report Released Date/Time: Apr 24, 2024 12:37 PM Reporting Lab: [facility] [address] Performing Lab: [facility] [address] [place] [facility] BASIC METABOLIC PANEL+MG CARBON DIOXIDE, TOTAL [MOLES/VOLU ME] IN SERUM OR PLASMA 29 mmol/L 22 - 29 04/25 Specimen Type: PLASMA No comment entered. Ordering Provider: PRAFUL ADLER Report Released Date/Time: Apr 24, 2024 12:37 PM Reporting Lab: [facility] [address] Performing Lab: [facility] [address] [place] [facility] BASIC METABOLIC PANEL+MG CALCIUM [MASS/VOLUM E] IN SERUM OR PLASMA 8.7 mg/dL 8.4 - 10.2 04/25 Specimen Type: PLASMA No comment entered. Ordering Provider: PRAFUL ADLER Report Released Date/Time: Apr 24, 2024 12:37 PM Reporting Lab: [facility] [address] Performing Lab: [facility] [address] [place] [facility] BASIC METABOLIC PANEL+MG MAGNESIUM [MASS/VOLUM E] IN SERUM OR PLASMA 2.3 mg/dL 1.6 - 2.6 04/25 Specimen Type: PLASMA No comment entered. Ordering Provider: PRAFUL ADLER Report Released Date/Time: Apr 24, 2024 12:37 PM Reporting Lab: [facility] [address] Performing Lab: [facility] [address] [place] [facility] BASIC METABOLIC PANEL+MG ANION GAP IN SERUM OR PLASMA 9 mmol/L 5 - 15 04/25 Specimen Type: PLASMA No comment entered. Ordering Provider: PRAFUL ADLER Report Released Date/Time: Apr 24, 2024 12:37 PM Reporting Lab: [facility] [address] Performing Lab: [facility] [address] [place] [facility] BASIC METABOLIC PANEL+MG GLOMERULAR FILTRATION RATE/1.73 SQ M.PREDICTED [VOLUME RATE/AREA] IN SERUM, PLASMA OR BLOOD BY CREATININE- BASED FORMULA (CKD-EPI 2020) >90 60 04/25 Specimen Type: PLASMA No comment entered. Ordering Provider: PRAFUL ADLER Report Released Date/Time: Apr 24, 2024 12:37 PM Reporting Lab: [facility] [address] Performing Lab: [facility] [address] [place] [facility] BASIC METABOLIC PANEL+MG CREATININE [MASS/VOLUM E] IN SERUM OR PLASMA 0.7 mg/dL 0.7 - 1.2 04/24 Specimen Type: PLASMA No comment entered. Ordering Provider: PRAFUL ADLER Report Released Date/Time: Apr 24, 2024 12:37 PM Reporting Lab: [facility] [address] Performing Lab: [facility] [address] [place] [facility] BASIC METABOLIC PANEL+MG UREA NITROGEN [MASS/VOLUM E] IN SERUM OR PLASMA 16 mg/dL 8 - 26 04/24 Specimen Type: PLASMA No comment entered. Ordering Provider: PRAFUL ADLER Report Released Date/Time: Apr 24, 2024 12:37 PM Reporting Lab: [facility] [address] Performing Lab: [facility] [address] [place] [facility] BASIC METABOLIC PANEL+MG GLUCOSE [MASS/VOLUM E] IN SERUM OR PLASMA 97 mg/dL 70 - 100 04/24 Specimen Type: PLASMA No comment entered. Ordering Provider: PRAFUL ADLER Report Released Date/Time: Apr 24, 2024 12:37 PM Reporting Lab: [facility] [address] Performing Lab: [facility] [address] [place] [facility] BASIC METABOLIC PANEL+MG SODIUM [MOLES/VOLU ME] IN SERUM OR PLASMA 138 mmol/L 136 - 145 04/24 Specimen Type: PLASMA No comment entered. Ordering Provider: PRAFUL ADLER Report Released Date/Time: Apr 24, 2024 12:37 PM Reporting Lab: [facility] [address] Performing Lab: [facility] [address] [place] [facility] BASIC METABOLIC PANEL+MG POTASSIUM [MOLES/VOLU ME] IN SERUM OR PLASMA 2.7 mmol/L 3.5 - 5.1 04/24 L Specimen Type: PLASMA No comment entered. Ordering Provider: PRAFUL ADLER Report Released Date/Time: Apr 24, 2024 12:37 PM Reporting Lab: [facility] [address] Performing Lab: [facility] [address] [place] [facility] BASIC METABOLIC PANEL+MG CHLORIDE [MOLES/VOLU ME] IN SERUM OR PLASMA 99 mmol/L 98 - 107 04/24 Specimen Type: PLASMA No comment entered. Ordering Provider: PRAFUL ADLER Report Released Date/Time: Apr 24, 2024 12:37 PM Reporting Lab: [facility] [address] Performing Lab: [facility] [address] [place] [facility] BASIC METABOLIC PANEL+MG CARBON DIOXIDE, TOTAL [MOLES/VOLU ME] IN SERUM OR PLASMA 30 mmol/L 22 - 29 04/24 H Specimen Type: PLASMA No comment entered. Ordering Provider: PRAFUL ADLER Report Released Date/Time: Apr 24, 2024 12:37 PM Reporting Lab: [facility] [address] Performing Lab: [facility] [address] [place] [facility] BASIC METABOLIC PANEL+MG CALCIUM [MASS/VOLUM E] IN SERUM OR PLASMA 8.4 mg/dL 8.4 - 10.2 04/24 Specimen Type: PLASMA No comment entered. Ordering Provider: PRAFUL ADLER Report Released Date/Time: Apr 24, 2024 12:37 PM Reporting Lab: [facility] [address] Performing Lab: [facility] [address] [place] [facility] BASIC METABOLIC PANEL+MG MAGNESIUM [MASS/VOLUM E] IN SERUM OR PLASMA 2.1 mg/dL 1.6 - 2.6 04/24 Specimen Type: PLASMA No comment entered. Ordering Provider: PRAFUL ADLER Report Released Date/Time: Apr 24, 2024 12:37 PM Reporting Lab: [facility] [address] Performing Lab: [facility] [address] [place] [facility] BASIC METABOLIC PANEL+MG ANION GAP IN SERUM OR PLASMA 9 mmol/L 5 - 15 04/24 Specimen Type: PLASMA No comment entered. Ordering Provider: PRAFUL ADLER Report Released Date/Time: Apr 24, 2024 12:37 PM Reporting Lab: [facility] [address] Performing Lab: [facility] [address] [place] [facility] BASIC METABOLIC PANEL+MG GLOMERULAR FILTRATION RATE/1.73 SQ M.PREDICTED [VOLUME RATE/AREA] IN SERUM, PLASMA OR BLOOD BY CREATININE- BASED FORMULA (CKD-EPI 2020) >90 60 04/24 Specimen Type: PLASMA No comment entered. Ordering Provider: PRAFUL ADLER Report Released Date/Time: Apr 24, 2024 12:37 PM Reporting Lab: [address] Performing Lab: [place] [address] [place] [facility] BASIC METABOLIC PANEL+MG CREATININE [MASS/VOLUM E] IN SERUM OR PLASMA 0.7 mg/dL 0.7 - 1.2 04/24 Specimen Type: PLASMA Comment: Critical Value Reported To: Cait Zamorano RN 8--@083 2 NJK. Critical value report confirmed. Ordering Provider: MCKAY VICTOR Report Released Date/Time: Apr 23, 2024 05:30 PM Reporting Lab: [place] [address] Performing Lab: [place] [address] [place] [facility] BASIC METABOLIC PANEL+MG UREA NITROGEN [MASS/VOLUM E] IN SERUM OR PLASMA 16 mg/dL 04/24 Specimen Type: PLASMA Comment: Critical Value Reported To: Cait Zamorano RN 8-27-24@083 2 NJK. Critical value report confirmed. Ordering Provider: MCKAY VICTOR Report Released Date/Time: Apr 23, 2024 05:30 PM Reporting Lab: [address] Performing Lab: [place] [address] [place] [facility] BASIC METABOLIC PANEL+MG GLUCOSE [MASS/VOLUM E] IN SERUM OR PLASMA 105 mg/dL 70 - 100 04/24 H Specimen Type: PLASMA Comment: Critical Value Reported To: Cait Zamorano RN 8-27-24@083 2 NJK. Critical value report confirmed. Ordering Provider: MCKAY VICTOR Report Released Date/Time: Apr 23, 2024 05:30 PM Reporting Lab: [place] [address] Performing Lab: [place] [address] [place] [facility] BASIC METABOLIC PANEL+MG SODIUM [MOLES/VOLU ME] IN SERUM OR PLASMA 138 mmol/L 136 - 145 04/24 Specimen Type: PLASMA Comment: Critical Value Reported To: Cait Zamorano RN 8-27-@083 2 NJK. Critical value report confirmed. Ordering Provider: MCKAY VICTOR Report Released Date/Time: Apr 23, 2024 05:30 PM Reporting Lab: [facility] [address] Performing Lab: [facility] [address] [place] [facility] BASIC METABOLIC PANEL+MG POTASSIUM [MOLES/VOLU ME] IN SERUM OR PLASMA 2.3 mmol/L 3.5 - 5.1 04/24 LL Specimen Type: PLASMA Comment: Critical Value Reported To: Cait Zamorano RN 8-@083 2 NJK. Critical value report confirmed. Ordering Provider: MCKAY VICTOR Report Released Date/Time: Apr 23, 2024 05:30 PM Reporting Lab: [facility] [address] Performing Lab: [place] [address] [place] [facility] BASIC METABOLIC PANEL+MG CHLORIDE [MOLES/VOLU ME] IN SERUM OR PLASMA 98 mmol/L 98 - 107 04/24 Specimen Type: PLASMA Comment: Critical Value Reported To: Cait Zamorano RN 8-27-@083 2 NJK. Critical value report confirmed. Ordering Provider: MCKAY VICTOR Report Released Date/Time: Apr 23, 2024 05:30 PM Reporting Lab: [facility] [address] Performing Lab: [facility] [address] [place] [facility] BASIC METABOLIC PANEL+MG CARBON DIOXIDE, TOTAL [MOLES/VOLU ME] IN SERUM OR PLASMA 29 mmol/L 22 - 29 04/24 Specimen Type: PLASMA Comment: Critical Value Reported To: Cait Zamorano RN 8-27-@083 2 NJK. Critical value report confirmed. Ordering Provider: MCKAY VICTOR Report Released Date/Time: Apr 23, 2024 05:30 PM Reporting Lab: [facility] [address] Performing Lab: [place] [address] [place] [facility] BASIC METABOLIC PANEL+MG CALCIUM [MASS/VOLUM E] IN SERUM OR PLASMA 8.3 mg/dL 8.4 - 10.2 04/24 L Specimen Type: PLASMA Comment: Critical Value Reported To: Cait Zamorano RN 8-@083 2 NJK. Critical value report confirmed. Ordering Provider: MCKAY VICTOR Report Released Date/Time: Apr 23, 2024 05:30 PM Reporting Lab: [place] [address] Performing Lab: [place] [address] [place] [facility] BASIC METABOLIC PANEL+MG MAGNESIUM [MASS/VOLUM E] IN SERUM OR PLASMA 2.2 mg/dL 1.6 - 2.6 04/24 Specimen Type: PLASMA Comment: Critical Value Reported To: Cait Zamorano RN 8-@083 2 NJK. Critical value report confirmed. Ordering Provider: MCKAY VICTOR Report Released Date/Time: Apr 23, 2024 05:30 PM Reporting Lab: [facility] [address] Performing Lab: [place] [address] [place] [facility] BASIC METABOLIC PANEL+MG ANION GAP IN SERUM OR PLASMA 11 mmol/L 5 - 15 04/24 Specimen Type: PLASMA Comment: Critical Value Reported To: Cait Zamorano RN 8-@083 2 NJK. Critical value report confirmed. Ordering Provider: MCKAY VICTOR Report Released Date/Time: Apr 23, 2024 05:30 PM Reporting Lab: [facility] [address] Performing Lab: [facility] [address] [place] [facility] BASIC METABOLIC PANEL+MG GLOMERULAR FILTRATION RATE/1.73 SQ M.PREDICTED [VOLUME RATE/AREA] IN SERUM, PLASMA OR BLOOD BY CREATININE- BASED FORMULA (CKD-EPI 2020) >90 60 04/24 Specimen Type: PLASMA Comment: Critical Value Reported To: Cait Zamorano RN 8-@083 2 NJK. Critical value report confirmed. Ordering Provider: MCKAY VICTOR Report Released Date/Time: Apr 23, 2024 05:30 PM Reporting Lab: [facility] [address] Performing Lab: [facility] [address] [place] [facility] CBC & DIFF LEUKOCYTES [#/VOLUME] IN BLOOD BY AUTOMATED COUNT 10.49 10*3/u L 4.0 - 11.0 04/24 Specimen Type: BLOOD Comment: Automated Differentia l Performed Ordering Provider: MCKAY VICTOR Report Released Date/Time: Apr 23, 2024 05:30 PM Reporting Lab: [facility] [address] Performing Lab: [facility] [address] [place] [facility] CBC & DIFF ERYTHROCYTE S [#/VOLUME] IN BLOOD BY AUTOMATED COUNT 3.83 10*6/u L 4.6 - 6.2 04/24 L Specimen Type: BLOOD Comment: Automated Differentia l Performed Ordering Provider: MCKAY VICTOR Report Released Date/Time: Apr 23, 2024 05:30 PM Reporting Lab: [facility] [address] Performing Lab: [facility] [address] [place] [facility] CBC & DIFF HEMOGLOBIN [MASS/VOLUM E] IN BLOOD 12.1 g/dL 13.5 - 17.9 04/24 L Specimen Type: BLOOD Comment: Automated Differentia l Performed Ordering Provider: MCKAY VICTOR Report Released Date/Time: Apr 23, 2024 05:30 PM Reporting Lab: [facility] [address] Performing Lab: [facility] [address] [place] [facility] CBC & DIFF HEMATOCRIT [VOLUME FRACTION] OF BLOOD BY AUTOMATED COUNT 35.7 41 - 54 04/24 L Specimen Type: BLOOD Comment: Automated Differentia l Performed Ordering Provider: MCKAY VICTOR Report Released Date/Time: Apr 23, 2024 05:30 PM Reporting Lab: [facility] [address] Performing Lab: [facility] [address] [place] [facility] CBC & DIFF MCV [ENTITIC VOLUME] BY AUTOMATED COUNT 93.2 fL 80 - 100 08/27 /2024 Specimen Type: BLOOD Comment: Automated Differentia l Performed Ordering Provider: MCKAY VICTOR Report Released Date/Time: Apr 23, 2024 05:30 PM Reporting Lab: [facility] [address] Performing Lab: [facility] [address] [place] [facility] CBC & DIFF MCH [ENTITIC MASS] BY AUTOMATED COUNT 31.6 pg 27 - 33 04/24 Specimen Type: BLOOD Comment: Automated Differentia l Performed Ordering Provider: MCKAY VICTOR Report Released Date/Time: Apr 23, 2024 05:30 PM Reporting Lab: [facility] [address] Performing Lab: [facility] [address] [place] [facility] CBC & DIFF MCHC [MASS/VOLUM E] BY AUTOMATED COUNT 33.9 g/dL 32.0 - 37.5 04/24 Specimen Type: BLOOD Comment: Automated Differentia l Performed Ordering Provider: MCKAY VICTOR Report Released Date/Time: Apr 23, 2024 05:30 PM Reporting Lab: [facility] [address] Performing Lab: [facility] [address] [place] [facility] CBC & DIFF PLATELETS [#/VOLUME] IN BLOOD BY AUTOMATED COUNT 282 10*3/u L 150 - 400 04/24 Specimen Type: BLOOD Comment: Automated Differentia l Performed Ordering Provider: MCKAY VICTOR Report Released Date/Time: Apr 23, 2024 05:30 PM Reporting Lab: [facility] [address] Performing Lab: [facility] [address] [place] [facility] CBC & DIFF PLATELET MEAN VOLUME [ENTITIC VOLUME] IN BLOOD BY AUTOMATED COUNT 10.5 fL 7.4 - 10.4 04/24 H Specimen Type: BLOOD Comment: Automated Differentia l Performed Ordering Provider: MCKAY VICTOR Report Released Date/Time: Apr 23, 2024 05:30 PM Reporting Lab: [facility] [address] Performing Lab: [facility] [address] [place] [facility] CBC & DIFF NEUTROPHILS /100 LEUKOCYTES IN BLOOD BY MANUAL COUNT 73.7 40.0 - 80.0 04/24 Specimen Type: BLOOD Comment: Automated Differentia l Performed Ordering Provider: MCKAY VICTOR Report Released Date/Time: Apr 23, 2024 05:30 PM Reporting Lab: [facility] [address] Performing Lab: [facility] [address] [place] [facility] CBC & DIFF LYMPHOCYTES /100 LEUKOCYTES IN BLOOD BY MANUAL COUNT 14.7 15.0 - 45.0 04/24 L Specimen Type: BLOOD Comment: Automated Differentia l Performed Ordering Provider: MCKAY VICTOR Report Released Date/Time: Apr 23, 2024 05:30 PM Reporting Lab: [facility] [address] Performing Lab: [facility] [address] [place] [facility] CBC & DIFF MONOCYTES/1 00 LEUKOCYTES IN BLOOD BY AUTOMATED COUNT 9.4 2.0 - 12.0 04/24 Specimen Type: BLOOD Comment: Automated Differentia l Performed Ordering Provider: MCKAY VICTOR Report Released Date/Time: Apr 23, 2024 05:30 PM Reporting Lab: [facility] [address] Performing Lab: [facility] [address] [place] [facility] CBC & DIFF EOSINOPHILS /100 LEUKOCYTES IN BLOOD BY AUTOMATED COUNT 0.8 0.0 - 6.0 04/24 Specimen Type: BLOOD Comment: Automated Differentia l Performed Ordering Provider: MCKAY VICTOR Report Released Date/Time: Apr 23, 2024 05:30 PM Reporting Lab: [facility] [address] Performing Lab: [facility] [address] [place] [facility] CBC & DIFF BASOPHILS/1 00 LEUKOCYTES IN BLOOD BY MANUAL COUNT 0.4 0.0 - 2.0 04/24 Specimen Type: BLOOD Comment: Automated Differentia l Performed Ordering Provider: MCKAY VICTOR Report Released Date/Time: Apr 23, 2024 05:30 PM Reporting Lab: [facility] [address] Performing Lab: [facility] [address] [place] [facility] CBC & DIFF ERYTHROCYTE DISTRIBUTIO N WIDTH [RATIO] BY AUTOMATED COUNT 13.9 11.5 - 14.5 04/24 Specimen Type: BLOOD Comment: Automated Differentia l Performed Ordering Provider: MCKAY VICTOR Report Released Date/Time: Apr 23, 2024 05:30 PM Reporting Lab: [facility] [address] Performing Lab: [facility] [address] [place] [facility] CBC & DIFF LYMPHOCYTES [#/VOLUME] IN BLOOD BY AUTOMATED COUNT 1.54 10*3/u L 1.0 - 4.0 04/24 Specimen Type: BLOOD Comment: Automated Differentia l Performed Ordering Provider: MCKAY VICTOR Report Released Date/Time: Apr 23, 2024 05:30 PM Reporting Lab: [facility] [address] Performing Lab: [facility] [address] [place] [facility] CBC & DIFF MONOCYTES [#/VOLUME] IN BLOOD BY AUTOMATED COUNT 0.99 10*3/u L 0.1 - 1.0 04/24 Specimen Type: BLOOD Comment: Automated Differentia l Performed Ordering Provider: MCKAY VICTOR Report Released Date/Time: Apr 23, 2024 05:30 PM Reporting Lab: [facility] [address] Performing Lab: [facility] [address] [place] [facility] CBC & DIFF NEUTROPHILS [#/VOLUME] IN BLOOD BY AUTOMATED COUNT 7.74 10*3/u L 2.0 - 7.7 04/24 H Specimen Type: BLOOD Comment: Automated Differentia l Performed Ordering Provider: MCKAY VICTOR Report Released Date/Time: Apr 23, 2024 05:30 PM Reporting Lab: [facility] [address] Performing Lab: [facility] [address] [place] [facility] CBC & DIFF EOSINOPHILS [#/VOLUME] IN BLOOD BY AUTOMATED COUNT 0.08 10*3/u L 0 - 0.5 04/24 Specimen Type: BLOOD Comment: Automated Differentia l Performed Ordering Provider: MCKAY VICTOR Report Released Date/Time: Apr 23, 2024 05:30 PM Reporting Lab: [facility] [address] Performing Lab: [facility] [address] [place] [facility] CBC & DIFF BASOPHILS [#/VOLUME] IN BLOOD BY AUTOMATED COUNT 0.04 10*3/u L 0 - 0.2 04/24 Specimen Type: BLOOD Comment: Automated Differentia l Performed Ordering Provider: MCKAY VICTOR Report Released Date/Time: Apr 23, 2024 05:30 PM Reporting Lab: [facility] [address] Performing Lab: [facility] [address] [place] [facility] CBC & DIFF IG(META,MYE LO,PRO) 1.0 04/24 Specimen Type: BLOOD Comment: Automated Differentia l Performed Ordering Provider: MCKAY VICTOR Report Released Date/Time: Apr 23, 2024 05:30 PM Reporting Lab: [facility] [address] Performing Lab: [facility] [address] [place] [facility] CBC & DIFF IMMATURE GRANULOCYTE S [PRESENCE] IN BLOOD BY AUTOMATED COUNT 0.10 10*3/u L 0 - 0.1 04/24 Specimen Type: BLOOD Comment: Automated Differentia l Performed Ordering Provider: MCKAY VICTOR Report Released Date/Time: Apr 23, 2024 05:30 PM Reporting Lab: [facility] [id number] Performing Lab: [facility] [address] [place] [facility] LACTIC ACID LACTATE [MOLES/VOLU ME] IN SERUM OR PLASMA 1.5 mmol/L 0.5 - 2.2 04/23 Specimen Type: PLASMA No comment entered. Ordering Provider: MCKAY VICTOR Report Released Date/Time: Apr 23, 2024 12:05 PM Reporting Lab: [facility] [address] Performing Lab: [facility] [address] [place] [facility] PROTHROMB IN TIME/INR INR IN PLATELET POOR PLASMA BY COAGULATION ASSAY 1.2 0.8 - 1.1 04/23 H Specimen Type: PLASMA No comment entered. Ordering Provider: MCKAY VICTOR Report Released Date/Time: Apr 23, 2024 12:05 PM Reporting Lab: [facility] [id number] Performing Lab: [facility] [address] [place] [facility] PROTHROMB IN TIME/INR PROTHROMBIN TIME (PT) 14.5 s 9.4 - 12.5 04/23 H Specimen Type: PLASMA No comment entered. Ordering Provider: MCKAY VICTOR Report Released Date/Time: Apr 23, 2024 12:05 PM Reporting Lab: [facility] [facility] [address] Performing Lab: [facility] [address] [place] [facility] ACT PART THROMBO TIME APTT IN PLATELET POOR PLASMA BY COAGULATION ASSAY 29.3 s 25.1 - 36.5 04/23 Specimen Type: PLASMA No comment entered. Ordering Provider: MCKAY VICTOR Report Released Date/Time: Apr 23, 2024 12:05 PM Reporting Lab: [facility] [address] Performing Lab: [facility] [address] [place] [facility] COMPREHEN SIVE METABOLIC PANEL+MG CREATININE [MASS/VOLUM E] IN SERUM OR PLASMA 0.7 mg/dL 0.7 - 1.2 04/23 Specimen Type: PLASMA No comment entered. Ordering Provider: MCKAY VICTOR Report Released Date/Time: Apr 23, 2024 12:05 PM Reporting Lab: [facility] [address] Performing Lab: [facility] [address] [place] [facility] COMPREHEN SIVE METABOLIC PANEL+MG UREA NITROGEN [MASS/VOLUM E] IN SERUM OR PLASMA 19 mg/dL 8 - 04/23 Specimen Type: PLASMA No comment entered. Ordering Provider: MCKAY VICTOR Report Released Date/Time: Apr 23, 2024 12:05 PM Reporting Lab: [facility] [address] Performing Lab: [facility] [address] [place] [facility] COMPREHEN SIVE METABOLIC PANEL+MG GLUCOSE [MASS/VOLUM E] IN SERUM OR PLASMA 92 mg/dL 70 - 100 04/23 Specimen Type: PLASMA No comment entered. Ordering Provider: MCKAY VICTOR Report Released Date/Time: Apr 23, 2024 12:05 PM Reporting Lab: [facility] [address] Performing Lab: [facility] [address] [place] [facility] COMPREHEN SIVE METABOLIC PANEL+MG SODIUM [MOLES/VOLU ME] IN SERUM OR PLASMA 142 mmol/L 136 - 145 04/23 Specimen Type: PLASMA No comment entered. Ordering Provider: MCKAY VICTOR Report Released Date/Time: Apr 23, 2024 12:05 PM Reporting Lab: [facility] [address] Performing Lab: [facility] [address] [place] [facility] COMPREHEN SIVE METABOLIC PANEL+MG POTASSIUM [MOLES/VOLU ME] IN SERUM OR PLASMA 2.6 mmol/L 3.5 - 5.1 04/23 L Specimen Type: PLASMA No comment entered. Ordering Provider: MCKAY VICTOR Report Released Date/Time: Apr 23, 2024 12:05 PM Reporting Lab: [facility] [address] Performing Lab: [facility] [address] [place] [facility] COMPREHEN SIVE METABOLIC PANEL+MG CHLORIDE [MOLES/VOLU ME] IN SERUM OR PLASMA 95 mmol/L 98 - 107 04/23 L Specimen Type: PLASMA No comment entered. Ordering Provider: MCKAY VICTOR Report Released Date/Time: Apr 23, 2024 12:05 PM Reporting Lab: [facility] [address] Performing Lab: [facility] [address] [place] [facility] COMPREHEN SIVE METABOLIC PANEL+MG CARBON DIOXIDE, TOTAL [MOLES/VOLU ME] IN SERUM OR PLASMA 33 mmol/L 22 - 29 04/23 H Specimen Type: PLASMA No comment entered. Ordering Provider: MCKAY VICTOR Report Released Date/Time: Apr 23, 2024 12:05 PM Reporting Lab: [facility] [address] Performing Lab: [facility] [address] [place] [facility] COMPREHEN SIVE METABOLIC PANEL+MG CALCIUM [MASS/VOLUM E] IN SERUM OR PLASMA 9.7 mg/dL 8.4 - 10.2 04/23 Specimen Type: PLASMA No comment entered. Ordering Provider: MCKAY VICTOR Report Released Date/Time: Apr 23, 2024 12:05 PM Reporting Lab: [facility] [address] Performing Lab: [facility] [address] [place] [facility] COMPREHEN SIVE METABOLIC PANEL+MG PROTEIN [MASS/VOLUM E] IN SERUM OR PLASMA 7.1 g/dL 6.4 - 8.3 04/23 Specimen Type: PLASMA No comment entered. Ordering Provider: MCKAY VICTOR Report Released Date/Time: Apr 23, 2024 12:05 PM Reporting Lab: [facility] [address] Performing Lab: [facility] [address] [place] [facility] COMPREHEN SIVE METABOLIC PANEL+MG ALBUMIN [MASS/VOLUM E] IN SERUM OR PLASMA 3.6 g/dL 3.5 - 5.2 04/23 Specimen Type: PLASMA No comment entered. Ordering Provider: MCKAY VICTOR Report Released Date/Time: Apr 23, 2024 12:05 PM Reporting Lab: [facility] [address] Performing Lab: [facility] [address] [place] [facility] COMPREHEN SIVE METABOLIC PANEL+MG BILIRUBIN.T OTAL [MASS/VOLUM E] IN SERUM OR PLASMA 0.7 mg/dL 0.2 - 1.2 04/23 Specimen Type: PLASMA No comment entered. Ordering Provider: MCKAY VICTOR Report Released Date/Time: Apr 23, 2024 12:05 PM Reporting Lab: [facility] [address] Performing Lab: [facility] [address] [place] [facility] COMPREHEN SIVE METABOLIC PANEL+MG MAGNESIUM [MASS/VOLUM E] IN SERUM OR PLASMA 2.5 mg/dL 1.6 - 2.6 04/23 Specimen Type: PLASMA No comment entered. Ordering Provider: MCKAY VICTOR Report Released Date/Time: Apr 23, 2024 12:05 PM Reporting Lab: [facility] [address] Performing Lab: [facility] [address] [place] [facility] COMPREHEN SIVE METABOLIC PANEL+MG ANION GAP IN SERUM OR PLASMA 14 mmol/L 5 - 15 04/23 Specimen Type: PLASMA No comment entered. Ordering Provider: MCKAY VICTOR Report Released Date/Time: Apr 23, 2024 12:05 PM Reporting Lab: [facility] [address] Performing Lab: [facility] [address] [place] [facility] COMPREHEN SIVE METABOLIC PANEL+MG ALKALINE PHOSPHATASE [ENZYMATIC ACTIVITY/VO LUME] IN SERUM OR PLASMA 68 U/L 40 - 150 04/23 Specimen Type: PLASMA No comment entered. Ordering Provider: MCKAY VICTOR Report Released Date/Time: Apr 23, 2024 12:05 PM Reporting Lab: [facility] [address] Performing Lab: [facility] [address] [place] [facility] COMPREHEN SIVE METABOLIC PANEL+MG ALANINE AMINOTRANSF ERASE [ENZYMATIC ACTIVITY/VO LUME] IN SERUM OR PLASMA 19 U/L <44 - 44 04/23 Specimen Type: PLASMA No comment entered. Ordering Provider: MCKAY VICTOR Report Released Date/Time: Apr 23, 2024 12:05 PM Reporting Lab: [facility] [address] Performing Lab: [facility] [address] [place] [facility] COMPREHEN SIVE METABOLIC PANEL+MG ASPARTATE AMINOTRANSF ERASE [ENZYMATIC ACTIVITY/VO LUME] IN SERUM OR PLASMA 28 U/L 11 - 34 04/23 Specimen Type: PLASMA No comment entered. Ordering Provider: MCKAY VICTOR Report Released Date/Time: Apr 23, 2024 12:05 PM Reporting Lab: [facility] [address] Performing Lab: [facility] [address] [place] [facility] COMPREHEN SIVE METABOLIC PANEL+MG GLOMERULAR FILTRATION RATE/1.73 SQ M.PREDICTED [VOLUME RATE/AREA] IN SERUM, PLASMA OR BLOOD BY CREATININE- BASED FORMULA (CKD-EPI 2020) >90 60 04/23 Specimen Type: PLASMA No comment entered. Ordering Provider: MCKAY VICTOR Report Released Date/Time: Apr 23, 2024 12:05 PM Reporting Lab: [facility] [address] Performing Lab: [facility] [address] [facility] Vital Signs Combined list of inpatient [...] ADM Date DC Date Status Disposition Source [facility] OFFICE O/P NEW LOW 30-44 MIN [id number] Diagnos is: ICD-10- CM H60.513 Acute actinic otitis externa , bilater al
JUANCARLOS WEBER 11/10 [facility] [place] [facility] Outpatient Encounter [id number] 11/12 [facility] [place] [facility] Outpatient Encounter [id number] JATINDER BENITEZ 11/15 [facility] [place] [facility] OFFICE O/P EST MOD 30-39 MIN [id number] Diagnos is: ICD-10- CM H60.513 Acute actinic otitis externa , bilater al
GAPEVETTEMAR ILIR 11/22 [place] [facility] [place] [facility] OFFICE O/P NEW MOD 45-59 MIN [id number] Diagnos is: ICD-10- CM K57.32 Dvtrcli of lg int w/o perfora tion or abscess w/o bleedin g
RAULKIM ORNELAS 01/05 [place] [facility] [place] [facility] Outpatient Encounter [id number] 01/24 [place] [facility] [place] [facility] Outpatient Encounter [id number] 01/26 [facility] [place] [facility] OFFICE O/P EST HI 40-54 MIN [id number] Diagnos is: ICD-10- CM I25.10 Athscl heart disease of [place] coronar y artery w/o ang pctrs<b r/> JATINDER BENITEZ 05/06 [facility] [place] [facility] Outpatient Encounter [id number] 05/14 [place] [facility] [place] [facility] Outpatient Encounter [id number] 06/30 [facility] [place] [facility] BREATHING CAPACITY TEST [id number] Diagnos is: ICD-10- CM Z72.0 Tobacco use<br/ > PRANEETH FIERRO 06/30 [facility] [place] [facility] Outpatient Encounter [id number] 08/12 [place] [facility] [place] [facility] Outpatient Encounter [id number] 08/15 [place] [facility] [place] [facility] Outpatient Encounter [id number] 09/19 [place] [facility] [place] [facility] Outpatient [facility]counter [id number] 09/20 [facility] [place] [facility] MOD SED SAME PHYS/QHP 5/>YRS [id number] Diagnos is: ICD-10- CM K63.89 Other specifi ed disease s of intesti ne
DYANKASEY Hammond 09/21 [place] [facility] [place] [facility] Outpatient Encounter [id number] 09/21 [place] [facility] [place] [facility] Outpatient Encounter [id number] EMRE TAM MOMO 09/26 [facility] OFFICE O/P NEW MOD 45 MIN [id number] Diagnos is: ICD-10- CM K59.00 Constip ation, unspeci fied
TANK PUGH W 10/05 [facility] [place] [id number] Diagnos is: ICD-10- CM Z01.118 Encntr for exam of ears and hearing w oth abnorma l finding s
CAROLYN NIELSON 11/28 [facility] [place] [facility] Outpatient Encounter [id number] JATINDER BENITEZ 12/14 [facility] CONFORMITY EVALUATION [id number] Diagnos is: ICD-10- CM H90.3 Sensori neural hearing loss, bilater al
CAROLYN NIELSON 12/28 [facility] [place] [facility] Outpatient Encounter [id number] 01/23 [facility] [place] [facility] Outpatient Encounter [id number] JATINDER BENITEZ 01/24 [facility] [place] [facility] Outpatient Encounter [id number] 01/29 [facility] [place] [facility] OFFICE O/P EST MOD 30 MIN [id number] Diagnos is: ICD-10- CM I25.10 Athscl heart disease of [place] coronar y artery w/o ang pctrs<b r/> ELI JATINDER [place] 01/29 [facility] Outpatient Encounter [id number] ALEXANDRO SADE [place] 04/21 [facility] EMERGENCY DEPT VISIT LOW [facility] [id number] Diagnos is: ICD-10- CM N32.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
CAMMY WAGNER AN A 04/21 [facility] Outpatient Encounter [id number] SYSTEM,CIS -ARK 04/23 [facility] Outpatient Encounter [id number] MARIS ARAMBULA RA 04/23 [facility] Outpatient Encounter [id number] EDILSON ZAZUETA 04/23 [facility] Outpatient Encounter [id number] 04/23 [facility] Drainage of Peritoneal Cavity with Drain Dev, Perc Approach [id number] Admit Reason: DIVERTI CULITIS ABSC W/FIST< br/> NURIA GO 04/23 [facility] Inpatient Encounter [id number] 04/23 [facility] Inpatient Encounter [id number] 04/23 [facility] Inpatient Encounter [id number] 04/23 [facility] IP/OBS CNSLTJ NEW/EST LOW 45 [id number] Diagnos is: ICD-10- CM K57.20 Dvtrcli of lg int w perfora tion and abscess w/o bleedin g
SHERRYMARYBETH Alex 04/23 [facility] Inpatient Encounter [id number] 04/23 [facility] IP/OBS CNSLTJ NEW/EST MOD 60 [id number] Diagnos is: ICD-10- CM I44.1 Atriove ntricul ar block, second degree< br/> YULY COOLEY RMA B 04/23 [facility] Inpatient Encounter [id number] SYSTEM,CIS -ARK 04/24 [facility] Inpatient Encounter [id number] 04/24 [facility] Inpatient Encounter [id number] MIKCA Lovelace GISTU A 04/24 [facility] INJ PERFLUTREN LIP MICROS,ML [id number] Diagnos is: ICD-10- CM R94.31 Abnorma l electro cardiog brandi [ECG] [EKG]<b r/> SIMEGRaduMEN GISTU A 04/24 [facility] Inpatient Encounter [id number] 04/24 [facility] IP/OBS CONSLTJ NEW/EST SF 35 [id number] Diagnos is: ICD-10- CM K57.20 Dvtrcli of lg int w perfora tion and abscess w/o bleedin g
MARYBETH POWELL 04/24 [place] [facility] [place] [facility] Inpatient Encounter [id number] 04/24 [place] [facility] [place] [facility] Inpatient Encounter [id number] 04/24 [place] [facility] [place] [facility] Inpatient Encounter [id number] 04/24 [facility] Inpatient Encounter [id number] SYSTEM,CIS -ARK 04/25 [facility] Inpatient Encounter [id number] 04/25 [facility] Inpatient Encounter [id number] MCKAY TOBIN 04/25 [facility] IP/OBS SF/LOW 25 [id number] Diagnos is: ICD-10- CM K57.20 Dvtrcli of lg int w perfora tion and abscess w/o bleedin g
MARYBETH POWELL 04/25 [facility] [place] [facility] Inpatient Encounter [id number] 04/25 [facility] Inpatient Encounter [id number] 04/25 [facility] Inpatient Encounter [id number] 04/25 [facility] Inpatient Encounter [id number] SYSTEM,CIS -ARK 04/26 [facility] [place] [facility] Inpatient Encounter [id number] 04/26 [facility] [place] [facility] Inpatient Encounter [id number] 04/26 [place] [facility] [place] [facility] Inpatient Encounter [id number] 04/26 [facility] [place] [facility] Outpatient Encounter [id number] 04/26 [facility] [place] [facility] Outpatient Encounter [id number] BRANDY GREWAL 04/29 [facility] [place] [facility] Outpatient Encounter [id number] 05/01 [facility] OFFICE O/P EST LOW 20 MIN [id number] Diagnos is: ICD-10- CM K57.20 Dvtrcli of lg int w perfora tion and abscess w/o bleedin g
MARYBETH POWELL 05/02 [facility] [place] [facility] Outpatient Encounter [id number] 05/03 [facility] [place] [facility] Outpatient Encounter [id number] MARILEE PEPE 05/03 [facility] Social History Combined list of available smoking, tobacco, and other social history from Department of Defense and Veterans Affairs facilities. Social History Type Response Date Comment Sourc e Tobacco smoking status PAIS VA-TOBACCO QUIT 15 YRS OR MORE 05/06/2023 [facility] History of tobacco use 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 05/06/2023 [facility] History of tobacco use [facility]-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 06/04/2022 [facility] History of tobacco use [facility]-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 07/10/2021 [facility] History of tobacco use KS-TOBACCO QUIT 5 TO < 15 YRS 05/23/2020 [facility] History of tobacco use KS-TOBACCO QUIT 5 TO < 15 YRS 03/20/2019 [facility] History of tobacco use FORMER TOBACCO US ER 7Y OR GREATER 03/21/2018 [facility] History of tobacco use FORMER TOBACCO US ER 7Y OR GREATER 02/24/2017 [facility] History of tobacco use FORMER TOBACCO US E >1Y <7Y 01/07/2016 [facility] History of tobacco use FORMER TOBACCO USE <1Y 02/03/2015 [facility] History of tobacco use CURRENT TOBACCO USER 02/26/2014 [facility] History of tobacco use CURRENT TOBACCO USER 05/13/2011 [facility] Plan of Care List of future care activities from [facility] facilities. Additional future care activities may be listed in the Assessment and Plan section. Date/Time Care Activity Care Activity Detail Facili ty 05/04/2024 AMBULATORY - NONE AMBULATORY - NONE [facility] 05/07/2024 AMBULATORY - MEDICINE AMBULATORY - MEDICI [facility] 05/08/2024 AMBULATORY - NONE AMBULATORY - NONE [facility] 05/09/2024 AMBULATORY - SURGERY AMBULATORY - SURGERY [facility] 05/15/2024 AMBULATORY - MEDICINE AMBULATORY - MEDICI [facility] 04/26/2024 Laboratory - Microbi ology Order CULTURE and SUSCEPTIBILITY WOUND OTHER WC ONCE ~For Test: CULTURE and SUSCEPTIBILITY ~Culture sample from JUAN drain output [facility] 04/26/2024 Laboratory - Microbi ology Order GRAM STAIN WOUND OTHER WC ONCE ~For Test: GRAM STAIN ~JUAN drain culture/gram stain [facility] 04/27/2024 Imaging - Ultrasound Order US [facility] (P) M [place] [facility] 05/04/2024 Laboratory - Button Attaching Machine Operator ry Order BASIC METABOLIC PANEL+MG PLASMA SP ONCE [facility] 05/08/2024 Imaging - CT Scan Order CT (AP) ABDOMEN/PELVIS (P) LISANDRO [facility] Advance Directives List of completed, amended, or rescinded Advance Directives on record at [facility] facilities. An actual copy of the Directive is not included. Date Advance Directive Provider Source 03/23/2016 CLINICAL WARNING TIM TERAN [facility]
--- OUTSIDE RECORDS SUMMARY | 2024-05-04 00:58 | XMS_ITS | Encounter Summary ---
Author Name [facility] [facility] [place] [facility] [place] Address [address] [place] [address] Care Team Providers Care District Claims Manager Name Role Phone JATINDER CABRERA Primary Care [...] PART A Sep 29, 2016 PART A [phone] JUDY WEAVER PATIENT Selected Encounter This section includes the information on record at [place] for the Encounter. 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 This section includes future appointments and future orders which are active, pending or scheduled. Future Appointments This section includes appointments that were scheduled to occur 6 months from the date of the Encounter, up to a maximum of 20 appointments. The data comes from all [place] treatment facilities. Appointment Date/Time Appointment Type Appointme nt Facility Name May 24, 2023 07:45 AM AM[facility]ORY - NONE [place] [facility] Jun 30, 2023 10:30 AM AMBULATORY - MEDICINE [facility] Sep 21, 2023 07:15 AM AMBULATORY - MEDICINE [facility] Oct 05, 2023 02:00 PM AMBULATORY - MEDICINE [facility] Lab Results: +/- 30 days of the encounter This section includes the Chemistry and Hematology Lab Results on record with [place] for the patient. Radiology Reports and Pathology Reports are provided separately, in subsequent sections. Lab Results This section contains the Chemistry/Hematology Results that were resulted 30 days before or 30 daysafter the date of the Encounter. Date/Time Source Result Type Result - Unit Interpretation Reference Range Comment May 06, 2023 08:21 AM [facility] LIPID PANEL,NON-FASTING Specimen Type: PLASMA No comment entered. Ordering Provider: GOLDIE CABRERA Report Released Date/Time: Oct 25, 2022 09:27 AM Reporting Lab: [facility] [id number] Performing Lab: [facility] [id number] CHOLESTEROL 131 mg/dL <199 .HDL 35 mg/dL L >40 LDL CALCULATION 62 mg/dL <99 VLDL CALCULATION 34 mg/dL H <29 NON HDL CHOLESTEROL 96 mg/dL <129 TRIG(NON FASTING) 171 mg/dL H <149 May 06, 2023 08:21 AM [facility] BASIC METABOLIC PANEL+MG Specimen Type: PLASMA No comment entered. Ordering Provider: GOLDIE CABRERA Report Released Date/Time: Oct 25, 2022 09:27 AM Reporting Lab: [facility] [id number] Performing Lab: [facility] [id number] CREATININE 1.1 mg/dL 0.7-1.2 UREA NITROGEN 21 mg/dL 8-26 GLUCOSE 189 mg/dL H 70-100 SODIUM 137 mmol/L 136-145 POTASSIUM 3.9 mmol/L 3.5-5.1 CHLORIDE 103 mmol/L 98-107 CO2 24 mmol/L 22-29 CALCIUM 9.6 mg/dL 8.4-10.2 MAGNESIUM 2.1 mg/dL 1.6-2.6 ANION GAP 10 mmol/L 5-15 .CREAT EGFR(CKD-EPI) 72 >60 May 06, 2023 08:21 AM [facility] CBC Specimen Type: BLOOD No comment entered. Ordering Provider: GOLDIE CABRERA Report Released Date/Time: Oct 25, 2022 09:27 AM Reporting Lab: [facility] [id number] Performing Lab: [facility] [id number] WBC 9.88 10*3/uL 4.0-11.0 RBC 5.05 10*6/uL 4.6-6.2 HGB 16.5 g/dL 13.5-17.9 HCT 48.0 41-54 MCV 95.0 fL 80-100 MCH 32.7 pg 27-33 MCHC 34.4 g/dL 32.0-37.5 PLT 187 10*3/uL 150-400 MPV 11.2 fL H 7.4-10.4 RDW 14.6 H 11.5-14.5 Vital Signs: All taken on the encounter date This section contains inpatient and outpatient Vital Signs collected on the date of the Encounter. Date/Time Temperature Pulse Blood Pressure Respiratory Rate SP02 Pain Height Weight Body Mass Index Source May 06, 2023 11:29 AM 48 /min 113/72 mm[Hg] [facility] May 06, 2023 11:23 AM 97.5 F 49 /min 153/89 mm[Hg] 16 /min 96 % 0 71 in 237.5 lb 33 [facility] Social History: Smoking Status (Most current) and Tobacco Use (All prior to encounter date) This section includes the most current, and the historical, smoking and tobacco- related health factors from the [facility] where the Encounter took place. Current Smoking Status This section includes the most current smoking, or tobacco-related health factor, from the [facility] facility where the [facility]counter took place. Date/Time Current Smoking Status Comment Facil ity May 06, 2023 11:30 AM VA-TOBACCO QUIT 15 YRS OR MORE [facility] Tobacco Use History This section includes a history of the smoking, or tobacco-related health factors, that were collected on or before the date of the Encounter. The data comes from the [facility] where the Encounter took place. Date/Time Smoking Status/Tobacco Use Comment F acility May 06, 2023 11:30 AM VA-TOBACCO QUIT 15 YRS OR MORE [facility] Jun 04, 2022 09:00 AM 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 [facility] Jun 04, 2022 09:00 AM VA-TOBACCO QUIT 15 YRS OR MORE [facility] Jul 10, 2021 08:00 AM 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 [facility] Jul 10, 2021 08:00 AM VA-TOBACCO QUIT 5 TO < 15 YRS [facility] May 23, 2020 08:30 AM 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 [facility] May 23, 2020 08:30 AM VA-TOBACCO QUIT 5 TO < 15 YRS [facility] Mar 20, 2019 04:03 PM 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 [facility] Mar 20, 2019 04:03 PM VA-TOBACCO QUIT 5 TO < 15 YRS [facility] Mar 21, 2018 08:13 AM FORMER TOBACCO USER 7Y OR GREATE R [facility] Feb 24, 2017 09:24 AM FORMER TOBACCO USER 7Y OR GREATE R [facility] January 07, 2016 08:01 AM FORMER TOBACCO USE >1Y <7Y [facility] Feb 03, 2015 07:58 AM FORMER TOBACCO USE <1Y [facility] Feb 26, 2014 08:41 AM CURRENT TOBACCO USER [facility] May 13, 2011 01:45 PM CURRENT TOBACCO USER [facility] Advance Directives: All historical and current Section Date Range: From patient's date of to the date document was created. This section includes ALL of a patient's completed or amended [place] Advance and Rescinded Directives. The entries below indicate that a directive exists for the patient, but an actual copy is not included with this document. The data comes from all [facility]. Date Advance Directives Provider Source Mar 23, 2016 CLINICAL WARNING [facility] Radiology Reports: +/- 30 days [...] the Encounter. The data comes from all [place] treatment facilities. Date/Time Radiology Report Provider Source May 24, 2023 07:28 AM LUMBAR SPINE MIN 4 VIEWS: FLACA WEAVER [id number] -[phone] [id number] Exm Date: MAY 24, 2023@07:28 Req Phys: JATINDER CABRERA Pat Loc: [facility] PACT [facility] 4D (Req'g Loc Img Loc: MAIN X-RAY Service: Unknown (Case [id number] COMPLETE) LUMBAR SPINE MIN 4 VIEWS (RAD Detailed) CPT:70549 Reason for Study: chronic left sided low back pain Clinical History: chronic left sided low back pain Responsible provider name and phone number to notify for critical findings if other than user placing the order and pager listed below: User placing orders pager: [phone] LAST CREATININE 1.1 (05/06/23) Report Status: Verified Date Reported: MAY 24, 2023 Date Verified: MAY 24, 2023 Cat Breeder E-Sig:/ES/EDUARDO HERNDON MD, FACR, CCD Report: EXAMINATION: [...] Staff: EDUARDO HERNDON MD, FACR, STAFF RADIOLOGIST (Cat Breeder) /EDUARDO GEORGE [facility] Encounter Notes: All associated encounter notes [...] . No additional CRC surveillance recommended by data security consultant. 9. Decreased vitamin D - 02.24.2017 [...] Diverticular disease - By 02.13.[address] 07.17.2020 OSH(ED [place], [place]): Pt. Declined Admission. 03.14.2020 CT with Mild Sigmoid diverticulitis. 04.23.2020 ED(OSH): Declined admission. 17. 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 18. Ex-tobacco user 19. Impaired Fasting Glucose (SCT [id number]) - 02.26.2014 A1c 5.8%. 20. Adrenal mass [...] 24. Hiatal hernia 25. Shoulder Pain (SCT [id number]) 26. Trigger finger 27. [facility] Primary Care - Community Care Primary: Dr. Cathi Simeon, [facility], [place] [address]. Allergies: TERAZOSIN (Mar 13, 2015) EXAM: VS: [...] Remote Allergy/ADR Data available for this patient [facility] TERAZOSIN Active and Recently Outpatient Medications [...] MD Physician Signed: 05/06/2023 12:25 JATINDER CABRERA [facility] May 06, 2023 11:53 AM INTERNAL MEDICINE [...] . No additional CRC surveillance recommended by data security consultant. 9. Decreased vitamin D - 02.24.2017 [...] - By 02.13.[address] 03.14.2020 OSH(ED [place], [place]): Pt. Declined Admission. 03.14.2020 CT with Mild Sigmoid diverticulitis. 04.23.2020 ED(OSH): Declined admission. 17. 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 18. Ex-tobacco user 19. Impaired Fasting Glucose (SCT [id number]) - 02.26.2014 A1c 5.8%. 20. Adrenal mass [...] 24. Hiatal hernia 25. Shoulder Pain (SCT [id number]) 26. Trigger finger 27. [facility] Primary Care - Community Care Primary: Dr. Cathi Simeon, [facility], [place] [address]. Allergies: TERAZOSIN (Mar 13, 2015) EXAM: VS: [...] Remote Allergy/ADR Data available for this patient [facility] TERAZOSIN Active and Recently Outpatient Medications [...] EVERY DAY Expr:07-13-23 21 Total Medications /alexi/ Jatindre Cabrera MD Physician Signed: 05/06/2023 12:25 05/25/2023 [...] MD Physician Signed: 07/05/2023 07:06 JATINDER CABRERA [facility] May 06, 2023 11:25 AM INTERNAL MEDICINE [...] Pressure: 153/89 (05/06/2023 11:23) Pulse: 49 (05/06/2023 11:23) Respiration: 16 (05/06/2023 11:) Temperature: 97.5 F [...] ulcers, or a wound from a medical lead or Patient is bed-confined or a wheelchair-user or Patient requires assistance to transfer/change position No, Skin Screen is Negative Home Abuse/Violence Screen Is your home free of abuse and violence? Yes MOVE! Program Screen Body Mass Index (BMI)= 33.2 [place]: Collection DT Specimen Test Name Result Units Ref Range 06/04/2022 07:24 BLOOD !! HEMOGLOBIN A1C 5.8 % 4.0 - 6.0 !! Indicates COMMENTS AVAILABLE...Refer to Interim Lab Report. [place] Hgb A1C: No data available [place] Hgb A1C: No data available Point of Care Hgb A1C: POC HGB A1C____ Outpatient Nutrition Screen Body Mass Index (BMI)= 33.2 [place]: Collection DT Specimen Test Name Result Units Ref Range 06/04/2022 07:24 BLOOD !! HEMOGLOBIN A1C 5.8 % 4.0 - 6.0 !! Indicates COMMENTS AVAILABLE...Refer to Interim Lab Report. [place] Hgb A1C: No data available [place] Hgb A1C: No data available Point of [...] JAMIL LPN Signed: 05/06/2023 11:30 TANG JAMIL [facility]
--- OUTSIDE RECORDS SUMMARY | 2024-05-04 00:59 | XMS_ITS | Encounter Summary ---
Author Name [facility] [place] [facility] [place] Address [address] [place] [address] Care Team Providers Care Accounting Manager Cpa Name Role Phone JATINDER BENITEZ Primary Care [...] PART A Sep 29, 2016 PART A [phone] JUDY WEAVER PATIENT Selected Encounter This section includes the information on record at [place] for the Encounter. Date/Time Encounter Type Encounter Description Reason Provider Source Dec 15, 2023 04:08 PM Outpatient Encounter ADMIN PAT ACTIVTIES (MASNONCT) LINO BENITEZ E Encounter Template Text not used by [place] Plan of Treatment: Future Appointments (+ 6 months) and Future Tests (+/- 45 days) The Plan of Treatment section includes future care activities for the patient from all [place] treatmentfacilities. This section includes future appointments and future orders which are active, pending or scheduled. Future Appointments This section includes appointments that were scheduled to occur 6 months from the date of the Encounter, up to a maximum of 20 appointments. The data comes from all [place] treatment facilities. Appointment Date/Time Appointment Type Appointme nt Facility Name December 29, 2023 08:45 AM AMBULATORY - [place] [facility] January 24, 2024 07:00 AM AM[place]ORY - NONE [place] [facility] [facility] Jan 30, 2024 09:30 AM AMBULATORY - MEDICINE [place] [facility] Apr 21, 2024 07:28 AM [place]ORY - [place]IC[place] [facility] Apr 23, 2024 08:00 AM [facility]ORY - NONE [place] [facility] [facility] Apr 27, 2024 02:30 PM AMBULATORY - NONE [place] [facility] May 02, 2024 10:00 AM AMBULATORY - SURGERY [place] [facility] May 04, 2024 09:00 AM AM[facility]ORY - NONE [place] [facility] May 07, 2024 08:45 AM AM[facility]ULATORY - [place]ICINE [place] [facility] [facility] May 08, 2024 02:00 PM [facility]ORY - [facility]ONE [place] [facility] [facility] May 09, 2024 07:30 AM [facility] [place] [facility] May 15, 2024 08:30 AM AM[facility]UL[facility]ORY - [place]ICINE [place] [facility] Social History: Smoking Status (Most current) and Tobacco Use (All prior to encounter date) This section includes the most current, and the historical, smoking and tobacco- related health factors from the [place] facility where the Encounter took place. Current Smoking Status This section includes the most current smoking, or tobacco-related health factor, from the [place] facility where the Encounter took place. Date/Time Current Smoking Status Comment Juan Manuel ity May 06, 2023 11:30 AM 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 [facility] Tobacco Use History This section includes a history of the smoking, or tobacco-related health factors, that were collected on or before the date of the Encounter. The data comes from the [place] facility where the Encounter took place. Date/Time Smoking Status/Tobacco Use Comment F acility May 06, 2023 11:30 AM VA-TOBACCO QUIT 15 YRS OR MORE [facility] Jun 04, 2022 09:00 AM 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 [facility] Jun 04, 2022 09:00 AM VA-TOBACCO QUIT 15 YRS OR MORE [facility] Jul 10, 2021 08:00 AM 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 [facility] Jul 10, 2021 08:00 AM VA-TOBACCO QUIT 5 TO < 15 YRS [facility] May 23, 2020 08:30 AM 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 [facility] May 23, 2020 08:30 AM VA-TOBACCO QUIT 5 TO < 15 YRS [facility] Mar 20, 2019 04:03 PM 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 [facility] Mar 20, 2019 04:03 PM VA-TOBACCO QUIT 5 TO < 15 YRS [facility] Mar 21, 2018 08:13 AM FORMER TOBACCO USER 7Y OR GREATE R [facility] Feb 24, 2017 09:24 AM FORMER TOBACCO USER 7Y OR GREATE R [facility] January 07, 2016 08:01 AM FORMER TOBACCO USE >1Y <7Y [facility] Feb 03, 2015 07:58 AM FORMER TOBACCO USE <1Y [facility] Feb 26, 2014 08:41 AM CURRENT TOBACCO USER [facility] May 13, 2011 01:45 PM CURRENT TOBACCO USER [facility] Advance Directives: All historical and current Section Date Range: From patient's date of to the date document was created. This section includes ALL of a patient's completed or amended [place] Advance and Rescinded Directives. The entries below indicate that a directive exists for the patient, but an actual copy is not included with this document. The data comes from all [place] facilities. Date Advance Directives Provider Source Mar 23, 2016 CLINICAL WARNING [facility] Encounter Notes: All associated encounter notes [...] review. /alexi/ ELIGIO JOE MA, RN LCS Hose Wrapper Signed: 12/15/2023 16:10 ELIGIO JOE [facility]
--- OUTSIDE RECORDS SUMMARY | 2024-05-04 00:59 | XMS_ITS | Encounter Summary ---
Author Name [facility] [place] [facility] [place] Address [address] [place] [address] Care Team Providers Care Chief Quality Officer Name Role Phone JATINDER BENITEZ Primary Care [...] PART A Sep 29, 2016 PART A [id number] [phone] JUDY WEAVER PATIENT Selected Encounter This section includes the information on record at [place] for the Encounter. Date/Time Encounter Type Encounter Description Reason Provider Source December 29, 2023 08:45 AM CONFORMITY EVALUATION AUDIOLOGY ICD-10-CM H90.3 Sensorineural hearing loss, bilateral PRAFUL NIELSON IHAlex Encounter Template Text not used by [place] Assessments - Encounter Diagnoses This section includes the primary and secondary diagnoses documented for the Encounter. Date/Time Primary/Secondary Diagnosis Diagnosis Name Provider Source December 29, 2023 08:52 AM PRIMARY Sensorineural hearing loss, bilateral PRAFUL NIELSON ITTA Maeve [facility] December 29, 2023 08:52 AM SECONDARY Encounter for fitting and adjustment of hearing aid PRAFUL NIELSON [facility] December 29, 2023 08:52 AM SECONDARY Tinnitus, bilateral [place],BR ITTA K [facility] Plan of Treatment: Future Appointments (+ 6 months) and Future Tests (+/- 45 days) The Plan of Treatment section includes future care activities for the [facility] [place] [facility] This section includes future appointments and future orders which are active, pending or scheduled. Future Appointments This section includes appointments that were scheduled to occur 6 months from the date of the Encounter, up to a maximum of 20 appointments. The data comes from all [facility] facilities. Appointment Date/Time Appointment Type Appointme nt Facility Name January 24, 2024 07:00 AM AMBULATORY - NONE [facility] Jan 30, 2024 09:30 AM [facility] Apr 21, 2024 07:28 [facility] Apr 23, 2024 08:00 AM [facility] - NONE [facility] Apr 27, 2024 02:30 PM AMBULATORY - NONE [facility] May 02, 2024 10:00 AM AMBULATORY - SURGERY [facility] May 04, 2024 09:00 AM AMBULATORY - NONE [facility] May 07, 2024 08:45 AM [facility] May 08, 2024 02:00 PM [facility] - NONE [facility] May 09, 2024 07:30 AM [facility] May 15, 2024 08:30 [facility] Social History: Smoking Status (Most current) and Tobacco Use (All prior to encounter date) This section includes the most current, and the historical, smoking and tobacco- related health factors from the [place] facility where the Encounter took place. Current Smoking Status This section includes the most current smoking, or tobacco-related health factor, from the [place] facility where the Encounter took place. Date/Time Current Smoking Status Comment Juan Manuel ity May 06, 2023 11:30 AM 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 [facility] Tobacco Use History This section includes a history of the smoking, or tobacco-related health factors, that were collected on or before the date of the Encounter. The data comes from the [place] facility where the Encounter took place. Date/Time Smoking Status/Tobacco Use Comment F acility May 06, 2023 11:30 AM VA-TOBACCO QUIT 15 YRS OR MORE [facility] Jun 04, 2022 09:00 AM 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 [facility] Jun 04, 2022 09:00 AM VA-TOBACCO QUIT 15 YRS OR MORE [facility] Jul 10, 2021 08:00 AM 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 [facility] Jul 10, 2021 08:00 AM VA-TOBACCO QUIT 5 TO < 15 YRS [facility] May 23, 2020 08:30 AM 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 [facility] May 23, 2020 08:30 AM VA-TOBACCO QUIT 5 TO < 15 YRS [facility] Mar 20, 2019 04:03 PM 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 [facility] Mar 20, 2019 04:03 PM VA-TOBACCO QUIT 5 TO < 15 YRS [facility] Mar 21, 2018 08:13 AM FORMER TOBACCO USER 7Y OR GREATE R [facility] Feb 24, 2017 09:24 AM FORMER TOBACCO USER 7Y OR GREATE R [facility] January 07, 2016 08:01 AM FORMER TOBACCO USE >1Y <7Y [facility] Feb 03, 2015 07:58 AM FORMER TOBACCO USE <1Y [facility] Feb 26, 2014 08:41 AM CURRENT TOBACCO USER [facility] May 13, 2011 01:45 PM CURRENT TOBACCO USER [facility] Advance Directives: All historical and current Section Date Range: From patient's date of to the date document was created. This section includes ALL of a patient's completed or amended [place] Advance and Rescinded Directives. The entries below indicate that a directive exists for the patient, but an actual copy is not included with this document. The data comes from all [facility]. Date Advance Directives Provider Source Mar 23, 2016 CLINICAL WARNING [facility] Radiology Reports: +/- 30 days of [...] the Encounter. The data comes from all [place] treatment facilities. Date/Time Radiology Report Provider Source January 24, 2024 06:42 AM LDCT LUNG CANCER S CREENING: FLACA WEAVER [id number] -[id number] M Exm Date: JANUARY 24, 2024@06:42 Req Phys: JATINDER BENITEZ Loc: [facility] PULM CHART [facility] (Req' Img Loc: CT IMAGING Service: [place] [address] (Case [id number] COMPLETE) LDCT LUNG CANCER SCREENING (CT Detailed) CPT:13584 Reason for Study: LDCT for LUNG CANCER SCREENING (ANNUAL) Clinical History: [place] IS NOT under investigation for COVID-19 or [...] 24, 2024 Date Verified: JANUARY 24, 2024 Conveyor Belt Repairer E-Sig:/ES/LISA PENDLETON MD Report: EXAM: LDCT LUNG [...] Primary Interpreting Staff: LISA PENDLETON MD, RADIOLOGIST (Conveyor Belt Repairer) /JRLISA [facility] Encounter Notes: All associated encounter [...] AIDS (Right) fit: 12/29/2023 Make: Phonak Model: Keshaveo [id number]-RL LEONA Serial Numbers R: [id number] Clinical Pharmacy Specialist/Slim Tube Size: 2M Dome/Earmold: canal cShell ACCESSORIES: Android (jeferson only) OTOSCOPY: Both Ears: Free of excessive cerumen. Normal anatomy bilaterally ACTION: Hearing aid(s) are a good physical fit. Feedback test was completed and feedback stakeholder manager was activated. Hearing aid(s) were programmed to prescriptive targets, which were derived from the Veterans hearing loss. CONFORMITY EVAUATION (VERIFICATION OF HEARING AID FUNCTION): Real Ear Aided Response (REAR) was measured using the OTC PR Group 2 system using NAL-NL2 targets. Most targets were met. Loudness intolerance was measured using a 85 dB MPO tone sweep and the patient was able to tolerate the output of the hearing device(s). Veterans subjective impressions were considered while adjusting the hearing aid(s). Decreased gain to 90% and occlusion control to mild per comfort. [place] reported good sound quality and equal balance between ears after adjustments were made. reported a comfortable fit. [place] demonstrated understanding of the new aid(s) and was able to insert the hearing aid(s) appropriately, as well as manipulate the volume control and charging unit. Indicator tones were demonstrated for . Volume control enabled- Synchronized Program button enabled Veterans hearing aid(s) were paired to the patient's jeferson. The director of home economics phone application was reviewed in detail (volume control, program changes, settings, etc.) and demonstrated in the office. He is not interested in connecting for phone calls. Gregoria was counseled (30 minutes) regarding: -Full-time hearing aid use and acclimating to amplification -Realistic expectations for hearing aid use -Appropriate communication strategies -How to charge the hearing aids -Location and operation of all controls -Proper care and maintenance -Protecting hearing in high noise levels -Warning about battery ingestion -[facility] and Call Center contact information and services, including the trial period. Prognosis for success is good, given the Veterans response to the hearing aid(s). Hearing aid(s) were issued and supplies were mailed. [place] was provided with a copy of [place] issuance form [id number]. PLAN: will return to clinic for service as needed. Patient is in agreement with this plan. /alexi/ CAROLYN NIELSON MATERIAL CONTROLLER Signed: 12/29/2023 08:55 CAROLYN NIELSON [facility]
--- OUTSIDE RECORDS SUMMARY | 2024-05-04 00:59 | XMS_ITS | Encounter Summary ---
Author Name [facility] Organization [facility] Address [address] [place] [address] Care Team Providers Care Washer Machine Name Role Phone JATINDER CABRERA Primary Care [...] PART A Sep 29, 2016 PART A [id number] [phone] JUDY WEAVER PATIENT Selected Encounter This section includes the information on record at [place] for the Encounter. Date/Time Encounter Type Encounter Description Reason Provider Source Apr 21, 2024 07:16 AM Outpatient Encounter TELEPHONE TRIAGE [facility]AR [facility] Encounter Template Text not used by [place] Plan of Treatment: Future Appointments (+ 6 months) and Future Tests (+/- 45 days) The Plan of Treatment section includes future care activities for the patient from all [place] treatmentfacilities. This section includes future appointments and future orders which are active, pending or scheduled. Future Appointments This section includes appointments that were scheduled to occur 6 months from the date of the Encounter, up to a maximum of 20 appointments. The data comes from all [place] treatment facilities. Appointment Date/Time Appointment Type Appointme nt Facility Name Apr 23, 2024 08:00 AM AMBULATORY - NONE [facility] Apr 27, 2024 02:30 PM AMBULATORY - NONE [facility] May 02, 2024 10:00 AM AMBULATORY - SURGERY [facility] May 04, 2024 09:00 AM AMBULATORY - NONE [facility] May 07, 2024 08:45 AM AMBULATORY - MEDICINE [facility] May 08, 2024 02:00 PM [facility] May 09, 2024 07:30 AM AMBULATORY - SURGERY [facility] ANUS [facility] May 15, 2024 08:30 AM AMBULATORY - MEDICINE [facility] Active, Pending, and Scheduled Orders This section includes a listing of several types of active, pending, and scheduled orders, including clinic medications orders, diagnostic test orders, procedure orders and consult orders; where the start date of the order is 45 days before the date of the Encounter or 45 days after the date of theEncounter. The data comes from all [place] treatment facilities. Test Date/Time Test Type Test Details Facility Name Apr 26, 2024 10:10 AM Laboratory - Microbiology Order CULTURE & SUSCEPTIBILITY WOUND OTHER WC ONCE ~For Test: CULTURE & SUSCEPTIBILITY ~Culture sample from JUAN drain output [facility] Apr 26, 2024 10:10 AM Laboratory - Microbiology Order GRAM STAIN WOUND OTHER WC ONCE ~For Test: GRAM STAIN ~JUAN drain culture/gram stain [facility] Apr 27, 2024 02:30 PM Imaging - Ultrasound Order US AORTA (P) [facility] May 04, 2024 12:00 AM Laboratory - Chemistry Order BASIC METABOLIC PANEL+MG PLASMA SP ONCE [facility] May 08, 2024 02:00 PM Imaging - CT Scan Order CT (AP) ABDOMEN/PELVIS (P) LISANDRO [facility] Lab Results: +/- 30 days of the encounter This section includes the Chemistry and Hematology Lab Results on record with [place] for the patient. Radiology Reports and Pathology Reports are provided separately, in subsequent sections. Lab Results This section contains the Chemistry/Hematology Results that were resulted 30 days before or 30 daysafter the date of the Encounter. Date/Time Source Result Type Result - Unit Interpretation Reference Range Comment Apr 26, 2024 07:16 AM [facility] BASIC METABOLIC PANEL+MG Specimen Type: PLASMA No comment entered. Ordering Provider: JONO RANDOLPH Report Released Date/Time: Apr 25, 2024 02:50 PM Reporting Lab: [facility] [phone] Performing Lab: [facility] [address] CREATININE 0.7 mg/dL 0.7-1.2 UREA NITROGEN 15 mg/dL 8-26 GLUCOSE 106 mg/dL H 70-100 SODIUM 139 mmol/L 136-145 POTASSIUM 3.4 mmol/L L 3.5-5.1 CHLORIDE 105 mmol/L 98-107 CO2 25 mmol/L 22-29 CALCIUM 8.5 mg/dL 8.4-10.2 MAGNESIUM 2.2 mg/dL 1.6-2.6 ANION GAP 9 mmol/L 5-15 .CREAT EGFR(CKD-EPI) >90 >60 Apr 25, 2024 05:10 PM [facility] BASIC METABOLIC PANEL+MG Specimen Type: PLASMA No comment entered. Ordering Provider: GIOVANNI ADLER Report Released Date/Time: Apr 25, 2024 05:04 PM Reporting Lab: [facility] [phone] Performing Lab: [facility] [phone] CREATININE 0.7 mg/dL 0.7-1.2 UREA NITROGEN 15 mg/dL 8-26 GLUCOSE 104 mg/dL H 70-100 SODIUM 139 mmol/L 136-145 POTASSIUM 3.2 mmol/L L 3.5-5.1 CHLORIDE 103 mmol/L 98-107 CO2 28 mmol/L 22-29 CALCIUM 8.5 mg/dL 8.4-10.2 MAGNESIUM 2.2 mg/dL 1.6-2.6 ANION GAP 8 mmol/L 5-15 .CREAT EGFR(CKD-EPI) >90 >60 Apr 25, 2024 07:46 AM [facility] BASIC METABOLIC PANEL+MG Specimen Type: PLASMA No comment entered. Ordering Provider: GIOVANNI ADLER Report Released Date/Time: Apr 24, 2024 12:37 PM Reporting Lab: [facility] [phone] Performing Lab: [facility] [address] CREATININE 0.7 mg/dL 0.7-1.2 UREA NITROGEN 14 mg/dL 8-26 GLUCOSE 127 mg/dL H 70-100 SODIUM 139 mmol/L 136-145 POTASSIUM 2.9 mmol/L L 3.5-5.1 CHLORIDE 101 mmol/L 98-107 CO2 29 mmol/L 22-29 CALCIUM 8.7 mg/dL 8.4-10.2 MAGNESIUM 2.3 mg/dL 1.6-2.6 ANION GAP 9 mmol/L 5-15 .CREAT EGFR(CKD-EPI) >90 >60 Apr 24, 2024 04:42 PM [facility] BASIC METABOLIC PANEL+MG Specimen Type: PLASMA No comment entered. Ordering Provider: GIOVANNI ADLER Report Released Date/Time: Apr 24, 2024 12:37 PM Reporting Lab: [facility] [phone] Performing Lab: [facility] [address] CREATININE 0.7 mg/dL 0.7-1.2 UREA NITROGEN 16 mg/dL 8-26 GLUCOSE 97 mg/dL 70-100 SODIUM 138 mmol/L 136-145 POTASSIUM 2.7 mmol/L L 3.5-5.1 CHLORIDE 99 mmol/L 98-107 CO2 30 mmol/L H 22-29 CALCIUM 8.4 mg/dL 8.4-10.2 MAGNESIUM 2.1 mg/dL 1.6-2.6 ANION GAP 9 mmol/L 5-15 .CREAT EGFR(CKD-EPI) >90 >60 Apr 24, 2024 07:36 AM [facility] BASIC METABOLIC PANEL+MG Specimen Type: PLASMA Comment: Critical Value Reported To: Cait Zamorano RN 04-24-24@[address] [place] [address]. Critical value report confirmed. Ordering Provider: AARON VICTOR Report Released Date/Time: Apr 23, 2024 05:30 PM Reporting Lab: [facility] [phone] Performing Lab: [facility] [address] CREATININE 0.7 mg/dL 0.7-1.2 UREA NITROGEN 16 mg/dL 8-26 GLUCOSE 105 mg/dL H 70-100 SODIUM 138 mmol/L 136-145 POTASSIUM 2.3 mmol/L LL 3.5-5.1 CHLORIDE 98 mmol/L 98-107 CO2 29 mmol/L 22-29 CALCIUM 8.3 mg/dL L 8.4-10.2 MAGNESIUM 2.2 mg/dL 1.6-2.6 ANION GAP 11 mmol/L 5-15 .CREAT EGFR(CKD-EPI) >90 >60 Apr 24, 2024 07:35 AM [facility] CBC & DIFF Specimen Type: BLOOD Comment: Automated Differential Performed Ordering Provider: AARON VICTOR Report Released Date/Time: Apr 23, 2024 05:30 PM Reporting Lab: [facility] [phone] Performing Lab: [facility] [phone] WBC 10.49 10*3/uL 4.0-11.0 RBC 3.83 10*6/uL L 4.6-6.2 HGB 12.1 g/dL L 13.5-17.9 HCT 35.7 L 41-54 MCV 93.2 fL 80-100 MCH 31.6 pg 27-33 MCHC 33.9 g/dL 32.0-37.5 PLT 282 10*3/uL 150-400 MPV 10.5 fL H 7.4-10.4 NEUT 73.7 40.0-80.0 LYMPHS 14.7 L 15.0-45.0 MONO 9.4 2.0-12.0 EOSINO 0.8 0.0-6.0 BASO 0.4 0.0-2.0 RDW 13.9 11.5-14.5 ABS LYMPH 1.54 10*3/uL 1.0-4.0 ABS MONO 0.99 10*3/uL 0.1-1.0 ABS NEUT 7.74 10*3/uL H 2.0-7.7 ABS EOS 0.08 10*3/uL 0-0.5 ABS BASO 0.04 10*3/uL 0-0.2 IG(META,MYELO,P RO) 1.0 ABS IMMATURE GRAN 0.10 10*3/uL 0-0.1 Apr 23, 2024 01:20 PM [facility] LACTIC ACID Specimen Type: PLASMA No comment entered. Ordering Provider: AARON VICTOR Report Released Date/Time: Apr 23, 2024 12:05 PM Reporting Lab: [facility] [phone] Performing Lab: [facility] [phone] LACTIC ACID 1.5 mmol/L 0.5-2.2 Apr 23, 2024 01:20 PM [facility] PROTHROMBIN TIME/INR Specimen Type: PLASMA No comment entered. Ordering Provider: AARON VICTOR Report Released Date/Time: Apr 23, 2024 12:05 PM Reporting Lab: [facility] [address] Performing Lab: [facility] [address] .INR 1.2 H 0.8-1.1 .PT 14.5 s H 9.4-12.5 Apr 23, 2024 01:20 PM [facility] ACT PART THROMBO TIME Specimen Type: PLASMA No comment entered. Ordering Provider: AARON VICTOR Report Released Date/Time: Apr 23, 2024 12:05 PM Reporting Lab: [facility] [phone] Performing Lab: [facility] [address] APTT 29.3 s 25.1-36.5 Apr 23, 2024 01:20 PM [facility] COMPREHENSIVE METABOLIC PANEL+MG Specimen Type: PLASMA No comment entered. Ordering Provider: AARON VICTOR Report Released Date/Time: Apr 23, 2024 12:05 PM Reporting Lab: [facility] [phone] Performing Lab: [facility] [phone] CREATININE 0.7 mg/dL 0.7-1.2 UREA NITROGEN 19 mg/dL 8-26 GLUCOSE 92 mg/dL 70-100 SODIUM 142 mmol/L 136-145 POTASSIUM 2.6 mmol/L L 3.5-5.1 CHLORIDE 95 mmol/L L 98-107 CO2 33 mmol/L H 22-29 CALCIUM 9.7 mg/dL 8.4-10.2 PROTEIN,TOTAL 7.1 g/dL 6.4-8.3 ALBUMIN 3.6 g/dL 3.5-5.2 BILIRUBIN, TOTAL 0.7 mg/dL 0.2-1.2 MAGNESIUM 2.5 mg/dL 1.6-2.6 ANION GAP 14 mmol/L 5-15 ALKALINE PHOSPHATASE 68 U/L 40-150 ALT/SGPT 19 U/L <44 AST/SGOT 28 U/L 11-34 .CREAT EGFR(CKD-EPI) >90 >60 Apr 23, 2024 01:20 PM [facility] CBC & DIFF Specimen Type: BLOOD Comment: Automated Differential Performed Ordering Provider: AARON VICTOR Report Released Date/Time: Apr 23, 2024 12:05 PM Reporting Lab: [facility] [phone] Performing Lab: [facility] [address] WBC 12.50 10*3/uL H 4.0-11.0 RBC 4.07 10*6/uL L 4.6-6.2 HGB 13.0 g/dL L 13.5-17.9 HCT 37.7 L 41-54 MCV 92.6 fL 80-100 MCH 31.9 pg 27-33 MCHC 34.5 g/dL 32.0-37.5 PLT 284 10*3/uL 150-400 MPV 10.2 fL 7.4-10.4 NEUT 84.3 H 40.0-80.0 LYMPHS 8.7 L 15.0-45.0 MONO 5.9 2.0-12.0 EOSINO 0.2 0.0-6.0 BASO 0.2 0.0-2.0 RDW 14.2 11.5-14.5 ABS LYMPH 1.09 10*3/uL 1.0-4.0 ABS MONO 0.74 10*3/uL 0.1-1.0 ABS NEUT 10.53 10*3/uL H 2.0-7.7 ABS EOS 0.03 10*3/uL 0-0.5 ABS BASO 0.02 10*3/uL 0-0.2 IG(META,MYELO,P RO) 0.7 ABS IMMATURE GRAN 0.09 10*3/uL 0-0.1 Apr 21, 2024 07:28 AM [facility] URINALYSIS Specimen Type: URINE No comment entered. Ordering Provider: ANANDA HUGGINS Report Released Date/Time: Apr 21, 2024 07:37 AM Reporting Lab: [facility] [phone] Performing Lab: [facility] [address] URINE COLOR COLORLESS SPECIFIC GRAVITY 1.009 1.003-1.03 5 URINE BILIRUBIN NEGATIVE NEGATIVE URINE KETONES NEGATIVE NEGATIVE URINE GLUCOSE >1000 mg/dL URINE PROTEIN NEGATIVE mg/dL URINE PH 5.5 5.0-8.0 URINE WBC/HPF 1 [...] AM 99.6 61 125/59 16 96 5 [facility] Social History: Smoking Status (Most current) and Tobacco Use (All prior to encounter date) This section includes the most current, and the historical, smoking and tobacco- related health factors from the [place] facility where the Encounter took place. Current Smoking Status This section includes the most current smoking, or tobacco-related health factor, from the PR facility where the Encounter took place. Date/Time Current Smoking Status Comment Facil ity May 06, 2023 11:30 AM 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 [facility] Tobacco Use History This section includes a history of the smoking, or tobacco-related health factors, that were collected on or before the date of the Encounter. The data comes from the PR facility where the Encounter took place. Date/Time Smoking Status/Tobacco Use Comment F acility May 06, 2023 11:30 AM VA-TOBACCO QUIT 15 YRS OR MORE [facility] Jun 04, 2022 09:00 AM 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 [facility] Jun 04, 2022 09:00 AM VA-TOBACCO QUIT 15 YRS OR MORE [facility] Jul 10, 2021 08:00 AM 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 [facility] Jul 10, 2021 08:00 AM VA-TOBACCO QUIT 5 TO < 15 YRS [facility] May 23, 2020 08:30 AM 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 [facility] May 23, 2020 08:30 AM VA-TOBACCO QUIT 5 TO < 15 YRS [facility] Mar 20, 2019 04:03 PM 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 [facility] Mar 20, 2019 04:03 PM VA-TOBACCO QUIT 5 TO < 15 YRS [facility] Mar 21, 2018 08:13 AM FORMER TOBACCO USER 7Y OR GREATE R [facility] Feb 24, 2017 09:24 AM FORMER TOBACCO USER 7Y OR GREATE R [facility] January 07, 2016 08:01 AM FORMER TOBACCO USE >1Y <7Y [facility] Feb 03, 2015 07:58 AM FORMER TOBACCO USE <1Y [facility] Feb 26, 2014 08:41 AM CURRENT TOBACCO USER [facility] May 13, 2011 01:45 PM CURRENT TOBACCO USER [facility] Advance Directives: All historical and current Section Date Range: From patient's date of to the date document was created. This section includes ALL of a patient's completed or amended [place] Advance and Rescinded Directives. The entries below indicate that a directive exists for the patient, but an actual copy is not included with this document. The data comes from all [facility]. Date Advance Directives Provider Source Mar 23, 2016 CLINICAL WARNING TIM TERAN [facility] Radiology Reports: +/- 30 days of the [...] the Encounter. The data comes from all [place] treatment facilities. 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 Palmira Graves MD LAST CREATININE 0.7 (04/23/24) Report Status: Verified Date Reported: APR 24, 2024 Date Verified: APR 24, 2024 Millinery Worker E-Sig:/ES/SADIA DEE MD Report: PROCEDURES: Placement of abscess drainage catheter with CT guidance CLINICAL HISTORY: Diverticular abscess COMPARISONS: CT 04/23/2024 STAFF RADIOLOGIST: Renate Dee MD RESIDENT: Simran Flower MD Medications: The patient was placed on continuous monitoring. Intravenous sedation was administered. 2 milligrams of Versed and 100 micrograms of fentanyl IV. Vital signs and sedation monitored by nursing staff under Interventional Radiologist's supervision. The patient remained stable throughout the procedure. DOSE (Air Kerma): 2589 mGy PROCEDURE: The patient understood the limitations, alternatives, and risks of the procedure and requested the procedure be performed. Both oral and IMed consent were obtained. The patient was placed in a supine position on the CT table. The left lower quadrant/groin was sterilely prepped and draped in the usual fashion. One percent lidocaine was used for local anesthesia. Using real-time CT fluoroscopy, a 5 Luxembourger Yueh catheter was advanced into the collection in the left lower quadrant. A wire was coiled in the collection. The tract into the collection was dilated to accommodate the 12 Luxembourger locking pigtail drainage catheter. The catheter was secured to the skin with monofilament suture and connected to JUAN bulb suction. Impression: Successful placement of a 12 Luxembourger locking pigtail drainage catheter in the left lower quadrant abscess. This catheter is connected to JUAN bulb suction with flushes, as ordered. I, SADIA DEE, have reviewed the images and report. Primary Interpreting Staff: SADIA DEE MD, RADIOLOGIST (Millinery Worker) Primary Interpreting Resident: JEFFREY FLOWER MD, MANAGER COMMUNITY /SADIA SNYDER [facility] Apr 24, 2024 02:[address] NEEDLE PLACEMEN T (P): MEGFLACA YAMIL [id number] -1950 M Exm Date: APR 24, 2024@14:11 Req Phys: ISRAELTAURUS KADY Amanda Loc: 3K04-24-2024@16:07 Img Loc: CT IMAGING Service: PRIMARY [place]ARE [place] [address] (Case [id number] COMPLETE) CT SCAN FOR NEEDLE PLACEMENT (CT Detailed) CPT:48119 Reason for Study: diverticular abscess Clinical History: Report Status: Verified Date Reported: APR 24, 2024 Date Verified: APR 24, 2024 Millinery Worker E-Sig:/ES/SADIA DEE MD Report: PROCEDURES: Placement of abscess drainage catheter with CT guidance CLINICAL HISTORY: Diverticular abscess COMPARISONS: CT 04/23/2024 STAFF RADIOLOGIST: Renate Dee MD RESIDENT: Simran Flower MD Medications: The patient was placed on continuous monitoring. Intravenous sedation was administered. 2 milligrams of Versed and 100 micrograms of fentanyl IV. Vital signs and sedation monitored by nursing staff under Interventional Radiologist's supervision. The patient remained stable throughout the procedure. DOSE (Air Kerma): 2589 mGy PROCEDURE: The patient understood the limitations, alternatives, and risks of the procedure and requested the procedure be performed. Both oral and IMed consent were obtained. The patient was placed in a supine position on the CT table. The left lower quadrant/groin was sterilely prepped and draped in the usual fashion. One percent lidocaine was used for local anesthesia. Using real-time CT fluoroscopy, a 5 Luxembourger Yueh catheter was advanced into the collection in the left lower quadrant. A wire was coiled in the collection. The tract into the collection was dilated to accommodate the 12 Luxembourger locking pigtail drainage catheter. The catheter was secured to the skin with monofilament suture and connected to JUAN bulb suction. Impression: Successful placement of a 12 Luxembourger locking pigtail drainage catheter in the left lower quadrant abscess. This catheter is connected to JUAN bulb suction with flushes, as ordered. I, SADIA DEE, have reviewed the images and report. Primary Interpreting Staff: SADIA DEE MD, RADIOLOGIST (Millinery Worker) Primary Interpreting Resident: JEFFREY FLOWER MD, MANAGER COMMUNITY /SADIA SNYDER [facility] Apr 23, 2024 06:[address] ABDOMEN/ PELVIS: FLACA WEAVER [id number] -1950 M Exm Date: APR 23, 2024@06:36 Req Phys: MCKAY VICTOR Loc: 04-24-2024@10:25 [facility] Loc: OUTSOURCE CT Service: Unknown (Case [id number] COMPLETE) NON VA CT ABDOMEN/PELVIS (CT Detailed) CPT:07181 Reason for Study: OUTSIDE STUDY Clinical History: OUTSIDE STUDY Report Status: Electronically Filed Date Reported: APR 24, 2024 Report: This is an outside Imaging study and/or report imported for continuity of patient care. This Imaging study and/or report was not reviewed or verified by a [place] Radiologist. Impression: This is an outside Imaging study and/or report imported for continuity of patient care. This Imaging study and/or report was not reviewed or verified by a [place] Radiologist. Primary Diagnostic Code: VERIFIED BY: / *ELECTRONICALLY FILED* [facility] Pathology Reports: +/- 30 days [...] the Encounter. The data comes from all [place] treatment facilities. Date/Time Pathology Report Provider Source Apr 21, 2024 07:28 AM LR MICROBIOLOGY RE PORT: Reporting Lab: [facility] [CLIA# [id number]] [place] [address] Accession [UID]: [id number] [[id number]] Received: Apr 21, 2024@08:16 Collection sample: URINE Collection date: Apr 21, 2024 07:28 Provider: ANANDA HUGGINS Comment on specimen: RECEIVED IN STERILE CUP Test(s) ordered: CULTURE & SUSCEPTIBILITY...... completed: Apr 22, 2024 * BACTERIOLOGY FINAL REPORT => Apr 22, 2024 08:38 TECH CODE: [id number] CULTURE RESULTS: NO GROWTH 24 HOURS Bacteriology Remark(s): THIS REPORT IS FINAL =--=--=--=--=--=--=--=--=--=--=--=- -=--=--=--=--=--=--=--=--=--=--=--= --=--=-- Performing Laboratory: Bacteriology Report Performed By: [facility] [CLIA# [id number]] [place] [address] [facility] Encounter Notes: All associated encounter notes This section contains the clinical notes associated to the Encounter. Date/Time Encounter Note(s) Provider Source Apr 21, 2024 06:16 AM RN PROGRESS NOTE: LOCAL TITLE: CCC: CLINICAL TRIAGE STANDARD TITLE: RN PROGRESS NOTE DATE OF NOTE: APR 21, 2024@06:16:19 ENTRY DATE: APR 21, 2024@06:16:19 AUTHOR: SHEKHAR MC COSIGNER: URGENCY: STATUS: COMPLETED Patient Demographics Patient Name: FLACA WEAVER Patient Primary Address[address] [address] [place] [address] Patient Primary Phone: [phone] Patient : 1950 Patient Age: 73 Call Back Number: [phone] Caller/Recipient Relation to Patient: Self Emergency Contact: NIMO PIÑA Triage Summary Conducted triage/discussed symptoms Pain Score: [...] approval or authorization for payment by the [place] or its staff. Patient advised to report a community ED visit to the national Office of Community Care at within 72 hours. Nurse Summary Nurse Summary: Patient called in with complaints of urinary retention for the past 3 days now, pain level 10/10. Triage calls for ER now. Patient stated that he will have someone take him to the [facility] now. Clinical Contact Center Codes Clinic/Location: 3 [facility] PHONE [facility] RN Decision Support System Output: Triage Complete Triage Date: 04/21/2024, 07:01 AM Triage Note: Decision Support Tool Used: [facility] Phone Triage Sat, 21 Apr 2024 10:58:06 +0000 [facility] Demographics 73 y/o Male Results CC: Urinary Retention Software suggested: Now Software suggested follow-up location: Emergency department Values and Measures Duration of CC: 3 Days Positive Responses HPI: bladder feels full HPI: bladder pain, moderate to severe HPI: incomplete bladder emptying [place] Education Verbal Education Provided: Based on your [...] transportation. IMPORTANT: This note was created by [facility] staff. Please do not alert the staff member by adding them as a signer for future communications. Alerts are not monitored by this user. /es/ SHEKHAR MC MSN,BSN,RN Signed: 04/21/2024 06:16 Receipt Acknowledged By: 04/23/2024 09:14 /es/ Jatinder Cabrera MD Physician 04/23/2024 08:20 /es/ GUERITA AGUILA, RN REGISTERED NURSE SHEKHAR MC [facility]
--- OUTSIDE RECORDS SUMMARY | 2024-05-04 00:59 | XMS_ITS | Encounter Summary ---
Author Name [facility] [place] Address [address] [place] [address] Care Team Providers Care Cashier Payments Received Name Role Phone JATINDER BENITEZ Primary Care [...] PART A Sep 29, 2016 PART A [id number] [phone] JUDY WEAVER PATIENT Selected Encounter This section includes the information on record at [place] for the Encounter. Date/Time Encounter Type Encounter Description Reason Provider Source January 25, 2024 11:19 AM Outpatient Encounter ADMIN PAT ACTIVTIES (MASNONCT) LINO BENITEZ E Encounter Template Text not used by [place] Plan of Treatment: Future Appointments (+ 6 months) and Future Tests (+/- 45 days) The Plan of Treatment section includes future care activities for the patient from all [facility] treatment[facility]ilities. This section includes future appointments and future orders which are active, pending or scheduled. Future Appointments This section includes appointments that were scheduled to occur 6 months from the date of the Encounter, up to a maximum of 20 appointments. The data comes from all [place] treatment facilities. Appointment Date/Time Appointment Type Appointme nt Facility Name Jan 30, 2024 09:30 AM [place] [facility] Apr 21, 2024 07:28 AM [place] [facility] Apr 23, 2024 08:00 AM [place] [facility] Apr 27, 2024 02:30 PM [place] [facility] May 02, 2024 10:00 AM [place] [facility] May 04, 2024 09:00 AM [place] [facility] May 07, 2024 08:45 AM [place] [facility] May 08, 2024 02:00 PM [place] [facility] May 09, 2024 07:30 AM [place] [facility] May 15, 2024 08:30 AM [place] [facility] Social History: Smoking Status (Most current) and Tobacco Use (All prior to encounter date) This section includes the most current, and the historical, smoking and tobacco- related health factors from the [place] facility where the Encounter took place. Current Smoking Status This section includes the most current smoking, or tobacco-related health factor, from the [place] facility where the Encounter took place. Date/Time Current Smoking Status Comment Juan Manuel putnam May 06, 2023 11:30 AM 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 [facility] Tobacco Use History This section includes a history of the smoking, or tobacco-related health factors, that were collected on or before the date of the Encounter. The data comes from the [place] facility where the Encounter took place. Date/Time Smoking Status/Tobacco Use Comment F acility May 06, 2023 11:30 AM VA-TOBACCO QUIT 15 YRS OR MORE [facility] Jun 04, 2022 09:00 AM 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 [facility] Jun 04, 2022 09:00 AM VA-TOBACCO QUIT 15 YRS OR MORE [facility] Jul 10, 2021 08:00 AM 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 [facility] Jul 10, 2021 08:00 AM VA-TOBACCO QUIT 5 TO < 15 YRS [facility] May 23, 2020 08:30 AM 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 [facility] May 23, 2020 08:30 AM VA-TOBACCO QUIT 5 TO < 15 YRS [facility] Mar 20, 2019 04:03 PM 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 [facility] Mar 20, 2019 04:03 PM VA-TOBACCO QUIT 5 TO < 15 YRS [facility] Mar 21, 2018 08:13 AM FORMER TOBACCO USER 7Y OR GREATE R [facility] Feb 24, 2017 09:24 AM FORMER TOBACCO USER 7Y OR GREATE R [facility] January 07, 2016 08:01 AM FORMER TOBACCO USE >1Y <7Y [facility] Feb 03, 2015 07:58 AM FORMER TOBACCO USE <1Y [facility] Feb 26, 2014 08:41 AM CURRENT TOBACCO USER [facility] May 13, 2011 01:45 PM CURRENT TOBACCO USER [facility] Advance Directives: All historical and current Section Date Range: From patient's date of to the date document was created. This section includes ALL of a patient's completed or amended [place] Advance and Rescinded Directives. The entries below indicate that a directive exists for the patient, but an actual copy is not included with this document. The data comes from all [facility]. Date Advance Directives Provider Source Mar 23, 2016 CLINICAL WARNING TIM TERAN [facility] Radiology Reports: +/- 30 [...] the Encounter. The data comes from all [place] treatment facilities. Date/Time Radiology Report Provider Source January 24, 2024 06:42 AM LDCT LUNG CANCER S CREENING: FLACA WEAVER [id number] -[id number] M Exm Date: JANUARY 24, 2024@06:42 Req Phys: JATINDER BENITEZ Loc: [facility] PULM CHART CHECK [facility] (Req' Img Loc: CT IMAGING Service: [place] [address] (Case 128 COMPLETE) LDCT LUNG CANCER SCREENING (CT Detailed) CPT:24887 Reason for Study: LDCT for LUNG CANCER SCREENING (ANNUAL) Clinical History: [place] IS NOT under investigation for COVID-19 or [...] 24, 2024 Date Verified: JANUARY 24, 2024 Blackjack Dealer E-Sig:/ES/LISA PENDLETON MD Report: EXAM: LDCT LUNG [...] Primary Interpreting Staff: LISA PENDLETON MD, RADIOLOGIST (Blackjack Dealer) /JRT LISA PENDLETON [facility] Encounter Notes: All associated encounter notes This section contains the clinical notes associated to the Encounter. Date/Time Encounter Note(s) Provider Source January 25, 2024 11:24 AM LETTERS: LOCAL TITLE: FOLLOW UP RESULTS LETTER STANDARD TITLE: LETTERS DATE OF NOTE: JANUARY 25, 2024@11:24 ENTRY DATE: JANUARY 25, 2024@11:24:11 AUTHOR: BRITTNEY PARRY EXP COSIGNER: URGENCY: STATUS: COMPLETED [facility] [address] [place] [address] December FLACA YAMIL WEAVER [address] [facility] [id number] Dear [place]: Your recent chest imaging on December showed: [...] please contact Lung Cancer Screening staff at [phone]. BRITTNEY PARRY RN Case Manager BRITTNEY PARRY [facility] January 25, 2024 11:19 AM PULMONARY NOTE: [...] Case Manager Signed: 01/25/2024 11:24 BRITTNEY PARRY [facility]
--- OUTSIDE RECORDS SUMMARY | 2024-05-04 00:59 | XMS_ITS | Encounter Summary ---
Author Name [facility] [place] Address [address] [place] [address] Care Team Providers Care Manager Night Name Role Phone JATINDER BENITEZ Primary Care [...] PART A Sep 29, 2016 PART A [id number] [phone] JUDY WEAVER PATIENT Selected Encounter This section includes the information on record at [place] for the Encounter. Date/Time Encounter Type Encounter Description Reason Provider Source Nov 29, 2023 07:45 AM TYMPANOMETRY AUDIOLOGY ICD-10-CM Z01.118 Encntr for exam of ears and hearing w oth abnormal findings STEVE NIELSON K IHE Encounter Template Text not used by [place] Assessments - Encounter Diagnoses This section includes the primary and secondary diagnoses documented for the Encounter. Date/Time Primary/Secondary Diagnosis Diagnosis Name Provider Source Nov 29, 2023 08:03 AM PRIMARY Encntr for exam of ears and hearing w oth abnormal findings PRAFUL NIELSON ITTA K [facility] Nov 29, 2023 08:03 AM SECONDARY Sensorineural hearing loss, bilateral PRAFUL NIELSONA Maeve [facility] Nov 29, 2023 08:03 AM SECONDARY Tinnitus, bilateral ISRAELG,PRAFUL HOOKERA K [facility] Plan of Treatment: Future Appointments (+ 6 months) and Future Tests (+/- 45 days) The Plan of Treatment section includes future care activities for the patient from all [place] [facility]. This section includes future appointments and future orders which are active, pending or scheduled. Future Appointments This section includes appointments that were scheduled to occur 6 months from the date of the Encounter, up to a maximum of 20 appointments. The data comes from all [place] treatment facilities. Appointment Date/Time Appointment Type Appointme nt Facility Name December 29, 2023 08:45 AM [facility] January 24, 2024 07:00 AM [place] [facility] Jan 30, 2024 09:30 AM [place] [facility] Apr 21, 2024 07:28 AM [place] [facility] Apr 23, 2024 08:00 AM [place] [facility] Apr 27, 2024 02:30 PM [place] [facility] May 02, 2024 10:00 AM [place] [facility] May 04, 2024 09:00 AM [place] [facility] May 07, 2024 08:45 AM [place] [facility] May 08, 2024 02:00 PM [place] [facility] May 09, 2024 07:30 AM [place] [facility] May 15, 2024 08:30 AM [facility] Social History: Smoking Status (Most current) and Tobacco Use (All prior to encounter date) This section includes the most current, and the historical, smoking and tobacco- related health factors from the [place] facility where the Encounter took place. Current Smoking Status This section includes the most current smoking, or tobacco-related health factor, from the [place] facility where the Encounter took place. Date/Time Current Smoking Status Patty putnam May 06, 2023 11:30 AM 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 [facility] Tobacco Use History This section includes a history of the smoking, or tobacco-related health factors, that were collected on or before the date of the Encounter. The data comes from the [place] facility where the Encounter took place. Date/Time Smoking Status/Tobacco Use Comment F acility May 06, 2023 11:30 AM VA-TOBACCO QUIT 15 YRS OR MORE [facility] Jun 04, 2022 09:00 AM 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 [facility] Jun 04, 2022 09:00 AM VA-TOBACCO QUIT 15 YRS OR MORE [facility] Jul 10, 2021 08:00 AM 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 [facility] Jul 10, 2021 08:00 AM VA-TOBACCO QUIT 5 TO < 15 YRS [facility] May 23, 2020 08:30 AM 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 [facility] May 23, 2020 08:30 AM VA-TOBACCO QUIT 5 TO < 15 YRS [facility] Mar 20, 2019 04:03 PM 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 [facility] Mar 20, 2019 04:03 PM VA-TOBACCO QUIT 5 TO < 15 YRS [facility] Mar 21, 2018 08:13 AM FORMER TOBACCO USER 7Y OR GREATE R [facility] Feb 24, 2017 09:24 AM FORMER TOBACCO USER 7Y OR GREATE R [facility] January 07, 2016 08:01 AM FORMER TOBACCO USE >1Y <7Y [facility] Feb 03, 2015 07:58 AM FORMER TOBACCO USE <1Y [facility] Feb 26, 2014 08:41 AM CURRENT TOBACCO USER [facility] May 13, 2011 01:45 PM CURRENT TOBACCO USER [facility] Advance Directives: All historical and current Section Date Range: From patient's date of to the date document was created. This section includes ALL of a patient's completed or amended [place] Advance and Rescinded Directives. The entries below indicate that a directive exists for the patient, but an actual copy is not included with this document. The data comes from all [facility]. Date Advance Directives Provider Source Mar 23, 2016 CLINICAL WARNING TIM TERAN [facility] Encounter Notes: All associated encounter notes This [...] NIELSON COSIGNER: URGENCY: STATUS: COMPLETED C-SSRS Screening Peck-Suicide Severity Rating Scale (C-SSRS Screener) 1. Over [...] responses to other questions. /alexi/ CAROLYN NIELSON FOREST RANGER TECHNICIAN Signed: 11/29/2023 08:19 CAROLYN NIELSON [facility] Nov 29, 2023 07:19 AM AUDIOLOGY NOTE: LOCAL TITLE: AUDIOLOGY CLINIC NOTE STANDARD TITLE: AUDIOLOGY NOTE DATE OF NOTE: NOV 29, 2023@07:19 ENTRY DATE: NOV 29, 2023@07:19:32 AUTHOR: CAROLYN NIELSON EXP COSIGNER: URGENCY: STATUS: COMPLETED DIAGNOSIS: Encounter for examination of ears and hearing Sensorineural loss, bilateral Tinnitus, bilateral REASON FOR VISIT: HEARING EVALUATION AND HEARING AID SELECTION, 60 MINUTES: was seen in the clinic today for a comprehensive audiologic evaluation, hearing aid selection, and counseling. LOCATION OF VISIT (ROOM NUMBER): [id number] The was last seen in this clinic on 10/27/2022. The is NOT Service Connected for Hearing Loss / Tinnitus. was unaccompanied. The has never worn hearing aids before. HISTORY: seen reporting difficulties hearing, particularly when people [...] headphones Reliability: Good RIGHT EAR (Hz) 250 638 572 8755 1500 2000 3000 4000 6000 8000 Air: See Audiogram Display under Tools / AUDIOLOGY / ROES or see SKINNY Database Bone: See Audiogram Display under Tools / AUDIOLOGY / ROES or see SKINNY Database LEFT EAR (Hz) 250 713 797 3139 1500 2000 3000 4000 6000 8000 Air: See Audiogram Display under Tools / AUDIOLOGY / ROES or see SKINNY Database Bone: See Audiogram Display under Tools / AUDIOLOGY / ROES or see SKINNY Database - All thresholds are in dB HL * = Masked Threshold SRT: Spondees Right: 30 dB HL Left: 20 dB HL Pure tone results were consistent with speech temporary receptionist thresholds. WORD RECOGNITION: Recorded / W-22 word list RIGHT EAR: 96% Level: 70* [...] use, particularly for the right ear. - [place] was counseled on his type, degree and [...] devices, VA procedures and trial period. - [place] counseled on effective communication strategies. - counseled on tinnitus management. - Earmold impression taken of the right ear without complication. Otoscopy normal post earmold impression procedure, AD. - Hearing aid ordered: Phonak Audeo L90-RL LEONA RIGHT hearing aid (sandalCounsyl, Size 2xM aircraft cylinder mechanic, canal cShell, AOVs, Wax traps, removal strings) were selected and ordered today. PLAN: - [place] will be scheduled for a 60-minute hearing aid fitting appointment. - Monitor hearing for increase in asymmetry of hearing loss and/or word recognition scores. If otologic symptoms arise or asymmetry increases, ENT referral may be warranted at this time. - PATIENT IS IN AGREEMENT WITH THIS PLAN. /alexi/ CAROLYN NIELSON FOREST RANGER TECHNICIAN Signed: 11/29/2023 08:19 CAROLYN NIELSON [facility]
--- OUTSIDE RECORDS SUMMARY | 2024-05-04 00:59 | XMS_ITS | Encounter Summary ---
Author Name [facility] [place] Address [address] [place] [address] Care Team Providers Care Child Development Professor Name Role Phone JATINDER CABRERA Primary Care [...] PART A Sep 29, 2016 PART A [id number] [phone] JUDY WEAVER PATIENT Selected Encounter This section includes the information on record at [place] for the Encounter. 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 This section includes future appointments and future orders which are active, pending or scheduled. Future Appointments This section includes appointments that were scheduled to occur 6 months from the date of the Encounter, up to a maximum of 20 appointments. The data comes from all [facility]. Appointment Date/Time Appointment Type Appointme nt Facility Name Apr 21, 2024 07:28 AM AMBULATORY - MEDICINE [facility] Apr 23, 2024 08:00 AM AMBULATORY - NONE [facility] Apr 27, 2024 02:30 PM [facility] May 02, 2024 10:00 AM AMBULATORY - SURGERY [facility] May 04, 2024 09:00 AM AMBULATORY - NONE [facility] May 07, 2024 08:45 AM AMBULATORY - MEDICINE [facility] May 08, 2024 02:00 PM [facility] NONE [facility] May 09, 2024 07:30 AM AMBULATORY - SURGERY [facility] May 15, 2024 08:30 AM AMBULATORY - MEDICINE [facility] Vital Signs: All taken on the encounter date This section contains inpatient and outpatient Vital Signs collected on the date of the Encounter. Date/Time Temperature Pulse Blood Pressure Respiratory Rate SP02 Pain Height Weight Body Mass Index Source Jan 30, 2024 08:59 AM 97.7 74 104/63 16 97 0 220.2 31 [facility] Immunizations: All administered on the encounter date [...] and tobacco- related health factors from the [place] facility where the Encounter took place. Current Smoking Status This section includes the most current smoking, or tobacco-related health factor, from the [place] facility where the Encounter took place. Date/Time Current Smoking Status Comment Facil ity May 06, 2023 11:30 AM VA-TOBACCO QUIT 15 YRS OR MORE [facility] Tobacco Use History This section includes a history of the smoking, or tobacco-related health factors, that were collected on or before the date of the Encounter. The data comes from the [facility] where the Encounter took place. Date/Time Smoking Status/Tobacco Use Comment F acility May 06, 2023 11:30 AM VA-TOBACCO QUIT 15 YRS OR MORE [facility] Jun 04, 2022 09:00 AM 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 [facility] Jun 04, 2022 09:00 AM VA-TOBACCO QUIT 15 YRS OR MORE [facility] Jul 10, 2021 08:00 AM 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 [facility] Jul 10, 2021 08:00 AM VA-TOBACCO QUIT 5 TO < 15 YRS [facility] May 23, 2020 08:30 AM 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 [facility] May 23, 2020 08:30 AM VA-TOBACCO QUIT 5 TO < 15 YRS [facility] Mar 20, 2019 04:03 PM 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 [facility] Mar 20, 2019 04:03 PM VA-TOBACCO QUIT 5 TO < 15 YRS [facility] Mar 21, 2018 08:13 AM FORMER TOBACCO USER 7Y OR GREATE R [facility] Feb 24, 2017 09:24 AM FORMER TOBACCO USER 7Y OR GREATE R [facility] January 07, 2016 08:01 AM FORMER TOBACCO USE >1Y <7Y [facility] Feb 03, 2015 07:58 AM FORMER TOBACCO USE <1Y [facility] Feb 26, 2014 08:41 AM CURRENT TOBACCO USER [facility] May 13, 2011 01:45 PM CURRENT TOBACCO USER [facility] Advance Directives: All historical and current Section Date Range: From patient's date of to the date document was created. This section includes ALL of a patient's completed or amended [place] Advance and Rescinded Directives. The entries below indicate that a directive exists for the patient, but an actual copy is not included with this document. The data comes from all [facility]. Date Advance Directives Provider Source Mar 23, 2016 CLINICAL WARNING TIM TERAN [facility] Radiology Reports: +/- 30 days of [...] the Encounter. The data comes from all [place] treatment facilities. Date/Time Radiology Report Provider Source January 24, 2024 06:42 AM LDCT LUNG CANCER S CREENING: FLACA WEAVER [id number] -1950 M Exm Date: JANUARY 24, 2024@06:42 Req Phys: JATINDER CABRERA Loc: [facility] PULM CHART CHECK LCS (Req' Img Loc: CT IMAGING Service: [place] [address] (Case 128 COMPLETE) LDCT LUNG CANCER SCREENING (CT Detailed) CPT:31428 Reason for Study: LDCT for LUNG CANCER [...] 24, 2024 Date Verified: JANUARY 24, 2024 Resaw Tailer E-Sig:/ES/LISA PENDLETON MD Report: EXAM: LDCT LUNG [...] Primary Interpreting Staff: LISA PENDLETON MD, RADIOLOGIST (Resaw Tailer) /JRLISA [facility] Encounter Notes: All associated encounter notes [...] . No additional CRC surveillance recommended by clinical services consultant. 9. Decreased vitamin D - 02.24.2017 [...] - By 02.13.[address] 03.14.2020 OSH(ED [place], [place]): Pt. Declined Admission. 03.14.2020 CT with Mild Sigmoid diverticulitis. 04.23.2020 ED(OSH): Declined admission. 17. 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 18. Ex-tobacco user 19. Impaired Fasting Glucose (SCT [id number]) - 02.26.2014 A1c 5.8%. 20. Adrenal mass [...] 24. Hiatal hernia 25. Shoulder Pain (SCT [id number]) 26. Trigger finger 27. [facility] Primary: Dr. Cathi Simeon, [facility], [place] [address]. Allergies: TERAZOSIN (Mar 13, 2015) EXAM: VS: [...] Remote Allergy/ADR Data available for this patient [facility] TERAZOSIN Active and Recently Outpatient Medications (including Supplies): Issue Date Status Last Fill Active Outpatient Medications Refills Expiration 1) ATORVASTATIN CALCIUM 40MG TAB Qty: 45 ACTIVE (S) Issu:07-15-23 for 90 days Sig: TAKE ONE-HALF TABLET [...] MD Physician Signed: 01/30/2024 09:26 JATINDER CABRERA [facility] Jan 30, 2024 09:02 AM INTERNAL MEDICINE OUTPATIENT NOTE: LOCAL TITLE: MEDICINE CLINIC NURSING NOTE STANDARD TITLE: INTERNAL MEDICINE OUTPATIENT NOTE DATE OF NOTE: JAN 30, 2024@09:02 ENTRY DATE: JAN 30, 2024@09:02:10 AUTHOR: GONZÁLEZ PATEL EXP COSIGNER: URGENCY: STATUS: COMPLETED MEDICINE CLINIC [...] Not worried about housing near future [facility] [employer] reports the following: Within the past 12 months, you worried whether your food would run out before you got money to buy more. Never true Within the past 12 months, the food you bought just didn't last and you didn't have money to get more. Never true Food Assistance Programs [facility] Food Assistance Programs [facility] /alexi/ GONZÁLEZ PATEL LPN Signed: 01/30/2024 09:05 01/30/2024 ADDENDUM STATUS: COMPLETED COVID-19 Immunization: Pfizer Monovalent (Comirnaty) Administered: COVID-19 (PFIZER), MRNA, LNP-S, PF, CORINA-SUCROSE, 30 MCG/0.3 ML (AGES 12+ YEARS) Date Administered: Jan 30, 2024 09:21 [employer] Calender Worker: [employer] Lot: [id number] Exp Date: Apr 28, 2024 [facility]: [id number] Admin Route/Site: INTRAMUSCULAR/LEFT DELTOID Dosage: 0.3mL Vaccine Information Statement(s): COVID-19 MRNA VACCINE (12+ YRS) VACCINE VIS Jun 16, 2023 (ARMENIAN) Order By: Policy Administered By: González Patel Vaccine administered without complications. /alexi/ GONZÁLEZ PATEL LPN Signed: 01/30/2024 09:22 GONZÁLEZ PATEL [facility]
--- OUTSIDE RECORDS SUMMARY | 2024-05-04 00:59 | XMS_ITS | Encounter Summary ---
Author Name [facility] [facility] Address [address] [place] [address] Care Team Providers Care Machine Builder Name Role Phone JATINDER BENITEZ Primary Care [...] PART A Sep 29, 2016 PART A [phone] JUDY WEAVER PATIENT Selected Encounter This section includes the information on record at [place] for the Encounter. Date/Time Encounter Type Encounter Description Reason Pro vider Source Jan 30, 2024 08:56 AM Outpatient Encounter PRIMARY CARE/MEDICINE IHE Encounter Template Text not used by [place] Plan of Treatment: Future Appointments (+ 6 months) and Future Tests (+/- 45 days) The Plan of Treatment section includes future care activities for the patient from all [place] treatmentfacilities. This section includes future appointments and future orders which are active, pending or scheduled. Future Appointments This section includes appointments that were scheduled to occur 6 months from the date of the Encounter, up to a maximum of 20 appointments. The data comes from all [place] treatment facilities. Appointment Date/Time Appointment Type Appointme nt Facility Name Apr 21, 2024 07:28 AM AMB[place]ORY [place]IC[place] [facility] Apr 23, 2024 08:00 AM AMBULATORY - NONE [place] [facility] Apr 27, 2024 02:30 PM AMBUL[place]ORY - NONE [place] [facility] May 02, 2024 10:00 AM AMBULATORY - [place] [facility] May 04, 2024 09:00 AM [facility] - NONE [place] [facility] May 07, 2024 08:45 AM [facility] May 08, 2024 02:00 PM AMBULATORY - NONE [place] [facility] May 09, 2024 07:30 AM AMBULATORY - [place]GERY [place] [facility] [facility] May 15, 2024 08:30 AM [facility] Vital Signs: All taken on the encounter date This section contains inpatient and outpatient Vital Signs collected on the date of the Encounter. Date/Time Temperature Pulse Blood Pressure Respiratory Rate SP02 Pain Height Weight Body Mass Index Source Jan 30, 2024 08:59 AM 97.7 74 104/63 16 97 0 220.2 31 [facility] Social History: Smoking Status (Most current) and Tobacco Use (All prior to encounter date) This section includes the most current, and the historical, smoking and tobacco- related health factors from the [place] facility where the Encounter took place. Current Smoking Status This section includes the most current smoking, or tobacco-related health factor, from the [place] facility where the Encounter took place. Date/Time Current Smoking Status Comment Facil ity May 06, 2023 11:30 AM VA-TOBACCO QUIT [address] [facility] Tobacco Use History This section includes a history of the smoking, or tobacco-related health factors, that were collected on or before the date of the Encounter. The data comes from the [place] facility where the Encounter took place. Date/Time Smoking Status/Tobacco Use Comment F acility May 06, 2023 11:30 AM VA-TOBACCO QUIT [address] [facility] Jun 04, 2022 09:00 AM 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 [facility] Jun 04, 2022 09:00 AM VA-TOBACCO QUIT [address] [facility] Jul 10, 2021 08:00 AM 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 [facility] Jul 10, 2021 08:00 AM VA-TOBACCO QUIT 5 TO < [address] [facility] May 23, 2020 08:30 AM 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 [facility] May 23, 2020 08:30 AM VA-TOBACCO QUIT 5 TO < [address] [facility] Mar 20, 2019 04:03 PM 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 [facility] Mar 20, 2019 04:03 PM CO-TOBACCO QUIT 5 TO < [address] [facility] Mar 21, 2018 08:13 AM FORMER TOBACCO USER 7Y OR GREATE R [facility] Feb 24, 2017 09:24 AM FORMER TOBACCO USER 7Y OR GREATE R [facility] January 07, 2016 08:01 AM FORMER TOBACCO USE >1Y <7Y [facility] Feb 03, 2015 07:58 AM FORMER TOBACCO USE <1Y [facility] Feb 26, 2014 08:41 AM [address] TOBACCO USER [facility] May 13, 2011 01:45 [address]BACCO USER [facility] Advance Directives: All historical and current Section Date Range: From patient's date of to the date document was created. This section includes ALL of a patient's completed or amended [place] Advance and Rescinded Directives. The entries below indicate that a directive exists for the patient, but an actual copy is not included with this document. The data comes from all [facility]. Date Advance Directives Provider Source Mar 23, 2016 CLINICAL WARNING [facility] Radiology Reports: +/- 30 days of [...] the Encounter. The data comes from all [place] treatment facilities. Date/Time Radiology Report Provider Source January 24, 2024 06:42 AM LDCT LUNG CANCER S CREENING: FLACA WEAVER [id number] -[id number] M Exm Date: JANUARY 24, 2024@06:42 Req Phys: JATINDER BENITEZ Loc: [facility] PULM CHART CHECK [facility] (Req' Img Loc: CT IMAGING Service: [place] [address] (Case [id number] COMPLETE) LDCT LUNG CANCER SCREENING (CT Detailed) CPT:67840 Reason for Study: LDCT for LUNG CANCER SCREENING (ANNUAL) Clinical History: [place] IS NOT under investigation for COVID-19 or [...] 24, 2024 Date Verified: JANUARY 24, 2024 [employer] E-Sig:/ES/LISA PENDLETON MD Report: EXAM: LDCT LUNG [...] Primary Interpreting Staff: LISA PENDLETON MD, RADIOLOGIST ([employer]) /JRT LISA PENDLETON [facility] Encounter Notes: All associated encounter notes [...] treatment. 2. Complete a durable power of family law attorney for health care. 3. Complete a living will. ADVANCE DIRECTIVE SCREENING: Does patient have an Advance Directive? The patient does not have an Advance Directive. The patient does not wish to create an Advance Directive for health care. Comment: Vet received AD materials and will review to consider /alexi/ JOB NICK HEAD START COORDINATOR Signed: 01/30/2024 08:[address] [facility]
--- OUTSIDE RECORDS SUMMARY | 2024-05-04 01:00 | XMS_ITS | Encounter Summary ---
Author Name [facility] Address [address] [place] [address] Care Team Providers Care Gas Pit Worker Name Role Phone JATINDER CABRERA Primary [...] PART A Sep 29, 2016 PART A [id number] [phone] JUDY ROY PATIENT Selected Encounter This section includes the information on record at [place] for the Encounter. Date/Time Encounter Type Encounter Description Reason Provider Source Apr 21, 2024 07:28 AM EMERGENCY DEPT VISIT LOW [facility] EMERGENCY DEPT ICD-10-CM N32.81 Overactive bladder NOE ROJAS E Encounter Template Text not used by [place] Assessments - Encounter Diagnoses This section includes the primary and secondary diagnoses documented for the Encounter. Date/Time Primary/Secondary Diagnosis Diagnosis Name Provider Source Apr 21, 2024 09:03 AM PRIMARY Overactive bladder NOE ROJAS [facility] Plan of Treatment: Future Appointments (+ 6 months) and Future Tests (+/- 45 days) The Plan of Treatment section includes future care activities for the patient from all [facility]. This section includes future appointments and future orders which are active, pending or scheduled. Future Appointments This section includes appointments that were scheduled to occur 6 months from the date of the Encounter, up to a maximum of 20 appointments. The data comes from all [facility]. Appointment Date/Time Appointment Type Appointme nt Facility Name Apr 23, 2024 08:00 AM AMBULATORY - NONE [facility] Apr 27, 2024 02:30 PM AMBULATORY - NONE [facility] May 02, 2024 10:00 AM AMBULATORY - SURGERY [facility] May 04, 2024 09:00 AM AMBULATORY - NONE [facility] May 07, 2024 08:45 AM AMBULATORY - MEDICINE [facility] May 08, 2024 02:00 PM AMBULATORY - NONE [facility] May 09, 2024 07:30 AM AMBULATORY - SURGERY [facility] May 15, 2024 08:30 AM AMBULATORY - MEDICINE [facility] Active, Pending, and Scheduled Orders This section includes a listing of several types of active, pending, and scheduled orders, including clinic medications orders, diagnostic test orders, procedure orders and consult orders; where the start date of the order is 45 days before the date of the Encounter or 45 days after the date of theEncounter. The data comes from all [facility]. Test Date/Time Test Type Test Details Facility Name Apr 26, 2024 10:10 AM Laboratory - Microbiology Order GRAM STAIN WOUND OTHER WC ONCE ~For Test: GRAM STAIN ~JUAN drain culture/gram stain [facility] Apr 26, 2024 10:10 AM Laboratory - Microbiology Order CULTURE & SUSCEPTIBILITY WOUND OTHER WC ONCE ~For Test: CULTURE & SUSCEPTIBILITY ~Culture sample from JUAN drain output [facility] Apr 27, 2024 02:30 PM Imaging - Ultrasound Order US AORTA (P) [facility] May 04, 2024 12:00 AM Laboratory - Chemistry Order BASIC METABOLIC PANEL+MG PLASMA SP ONCE [facility] May 08, 2024 02:00 PM Imaging - CT Scan Order CT (AP) ABDOMEN/PELVIS (P) LISANDRO [facility] Lab Results: +/- 30 days of the encounter This section includes the Chemistry and Hematology Lab Results on record with [place] for the patient. Radiology Reports and Pathology Reports are provided separately, in subsequent sections. Lab Results This section contains the Chemistry/Hematology Results that were resulted 30 days before or 30 daysafter the date of the Encounter. Date/Time Source Result Type Result - Unit Interpretation Reference Range Comment Apr 26, 2024 07:16 AM [facility] BASIC METABOLIC PANEL+MG Specimen Type: PLASMA No comment entered. Ordering Provider: JONO RANDOLPH Report Released Date/Time: Apr 25, 2024 02:50 PM Reporting Lab: [facility] [phone] Performing Lab: [facility] [address] CREATININE 0.7 mg/dL 0.7-1.2 UREA NITROGEN 15 mg/dL 8-26 GLUCOSE 106 mg/dL H 70-100 SODIUM 139 mmol/L 136-145 POTASSIUM 3.4 mmol/L L 3.5-5.1 CHLORIDE 105 mmol/L 98-107 CO2 25 mmol/L 22-29 CALCIUM 8.5 mg/dL 8.4-10.2 MAGNESIUM 2.2 mg/dL 1.6-2.6 ANION GAP 9 mmol/L 5-15 .CREAT EGFR(CKD-EPI) >90 >60 Apr 25, 2024 05:10 PM [facility] BASIC METABOLIC PANEL+MG Specimen Type: PLASMA No comment entered. Ordering Provider: GIOVANNI ADLER Report Released Date/Time: Apr 25, 2024 05:04 PM Reporting Lab: [facility] [address] Performing Lab: [facility] [address] CREATININE 0.7 mg/dL 0.7-1.2 UREA NITROGEN 15 mg/dL 8-26 GLUCOSE 104 mg/dL H 70-100 SODIUM 139 mmol/L 136-145 POTASSIUM 3.2 mmol/L L 3.5-5.1 CHLORIDE 103 mmol/L 98-107 CO2 28 mmol/L 22-29 CALCIUM 8.5 mg/dL 8.4-10.2 MAGNESIUM 2.2 mg/dL 1.6-2.6 ANION GAP 8 mmol/L 5-15 .CREAT EGFR(CKD-EPI) >90 >60 Apr 25, 2024 07:46 AM [facility] BASIC METABOLIC PANEL+MG Specimen Type: PLASMA No comment entered. Ordering Provider: GIOVANNI ADLER Report Released Date/Time: Apr 24, 2024 12:37 PM Reporting Lab: [facility] [phone] Performing Lab: [facility] [address] CREATININE 0.7 mg/dL 0.7-1.2 UREA NITROGEN 14 mg/dL 8-26 GLUCOSE 127 mg/dL H 70-100 SODIUM 139 mmol/L 136-145 POTASSIUM 2.9 mmol/L L 3.5-5.1 CHLORIDE 101 mmol/L 98-107 CO2 29 mmol/L 22-29 CALCIUM 8.7 mg/dL 8.4-10.2 MAGNESIUM 2.3 mg/dL 1.6-2.6 ANION GAP 9 mmol/L 5-15 .CREAT EGFR(CKD-EPI) >90 >60 Apr 24, 2024 04:42 PM [facility] BASIC METABOLIC PANEL+MG Specimen Type: PLASMA No comment entered. Ordering Provider: GIOVANNI ADLER Report Released Date/Time: Apr 24, 2024 12:37 PM Reporting Lab: [facility] [phone] Performing Lab: [facility] [address] CREATININE 0.7 mg/dL 0.7-1.2 UREA NITROGEN 16 mg/dL 8-26 GLUCOSE 97 mg/dL 70-100 SODIUM 138 mmol/L 136-145 POTASSIUM 2.7 mmol/L L 3.5-5.1 CHLORIDE 99 mmol/L 98-107 CO2 30 mmol/L H 22-29 CALCIUM 8.4 mg/dL 8.4-10.2 MAGNESIUM 2.1 mg/dL 1.6-2.6 ANION GAP 9 mmol/L 5-15 .CREAT EGFR(CKD-EPI) >90 >60 Apr 24, 2024 07:36 AM [facility] BASIC METABOLIC PANEL+MG Specimen Type: PLASMA Comment: Critical Value Reported To: Cait Zamorano RN 8-27-24@0832 [facility]. Critical value report confirmed. Ordering Provider: AARON VICTOR Report Released Date/Time: Apr 23, 2024 05:30 PM Reporting Lab: [facility] [address] Performing Lab: [facility] [address] CREATININE 0.7 mg/dL 0.7-1.2 UREA NITROGEN 16 mg/dL 8-26 GLUCOSE 105 mg/dL H 70-100 SODIUM 138 mmol/L 136-145 POTASSIUM 2.3 mmol/L LL 3.5-5.1 CHLORIDE 98 mmol/L 98-107 CO2 29 mmol/L 22-29 CALCIUM 8.3 mg/dL L 8.4-10.2 MAGNESIUM 2.2 mg/dL 1.6-2.6 ANION GAP 11 mmol/L 5-15 .CREAT EGFR(CKD-EPI) >90 >60 Apr 24, 2024 07:35 AM [facility] CBC & DIFF Specimen Type: BLOOD Comment: Automated Differential Performed Ordering Provider: AARON VICTOR Report Released Date/Time: Apr 23, 2024 05:30 PM Reporting Lab: [facility] [address] Performing Lab: [facility] [address] WBC 10.49 10*3/uL 4.0-11.0 RBC 3.83 10*6/uL [...] 10*3/uL 0-0.1 Apr 23, 2024 01:20 PM [facility] LACTIC ACID Specimen Type: PLASMA No comment entered. Ordering Provider: AARON VICTOR Report Released Date/Time: Apr 23, 2024 12:05 PM Reporting Lab: [facility] [address] Performing Lab: [facility] [address] LACTIC ACID 1.5 mmol/L 0.5-2.2 Apr 23, 2024 01:20 PM [facility] ACT PART THROMBO TIME Specimen Type: PLASMA No comment entered. Ordering Provider: AARON VICTOR Report Released Date/Time: Apr 23, 2024 12:05 PM Reporting Lab: [facility] [address] Performing Lab: [facility] [address] APTT 29.3 s 25.1-36.5 Apr 23, 2024 01:20 PM [facility] PROTHROMBIN TIME/INR Specimen Type: PLASMA No comment entered. Ordering Provider: AARON VICTOR Report Released Date/Time: Apr 23, 2024 12:05 PM Reporting Lab: [facility] [address] Performing Lab: [facility] [address] .INR 1.2 H 0.8-1.1 .PT 14.5 s H 9.4-12.5 Apr 23, 2024 01:20 PM [facility] COMPREHENSIVE METABOLIC PANEL+MG Specimen Type: PLASMA No comment entered. Ordering Provider: AARON VICTOR Report Released Date/Time: Apr 23, 2024 12:05 PM Reporting Lab: [facility] [address] Performing Lab: [facility] [address] CREATININE 0.7 mg/dL 0.7-1.2 UREA NITROGEN 19 [...] >90 >60 Apr 23, 2024 01:20 PM [facility] CBC & DIFF Specimen Type: BLOOD Comment: Automated Differential Performed Ordering Provider: AARON VICTOR Report Released Date/Time: Apr 23, 2024 12:05 PM Reporting Lab: [facility] [address] Performing Lab: [facility] [address] WBC 12.50 10*3/uL H 4.0-11.0 RBC 4.07 [...] 10*3/uL 0-0.1 Apr 21, 2024 07:28 AM [facility] URINALYSIS Specimen Type: URINE No comment entered. Ordering Provider: ANANDA HUGGINS Report Released Date/Time: Apr 21, 2024 07:37 AM Reporting Lab: [facility] [address] Performing Lab: [facility] [address] [facility] [address] URINE COLOR COLORLESS SPECIFIC GRAVITY 1.009 1.003-1.03 [...] AM 99.6 61 125/59 16 96 5 [facility] Social History: Smoking Status (Most current) and Tobacco Use (All prior to encounter date) This section includes the most current, and the historical, smoking and tobacco- related health factors from the [place] facility where the Encounter took place. Current Smoking Status This section includes the most current smoking, or tobacco-related health factor, from the [place] facility where the Encounter took place. Date/Time Current Smoking Status Comment Facil ity May 06, 2023 11:30 AM 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 [facility] Tobacco Use History This section includes a history of the smoking, or tobacco-related health factors, that were collected on or before the date of the Encounter. The data comes from the [place] facility where the Encounter took place. Date/Time Smoking Status/Tobacco Use Comment F acility May 06, 2023 11:30 AM VA-TOBACCO QUIT 15 YRS OR MORE [facility] Jun 04, 2022 09:00 AM 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 [facility] Jun 04, 2022 09:00 AM VA-TOBACCO QUIT 15 YRS OR MORE [facility] Jul 10, 2021 08:00 AM 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 [facility] Jul 10, 2021 08:00 AM VA-TOBACCO QUIT 5 TO < 15 YRS [facility] May 23, 2020 08:30 AM 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 [facility] May 23, 2020 08:30 AM VA-TOBACCO QUIT 5 TO < 15 YRS [facility] Mar 20, 2019 04:03 PM 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 [facility] Mar 20, 2019 04:03 PM VA-TOBACCO QUIT 5 TO < 15 YRS [facility] Mar 21, 2018 08:13 AM FORMER TOBACCO USER 7Y OR GREATE R [facility] Feb 24, 2017 09:24 AM FORMER TOBACCO USER 7Y OR GREATE R [facility] January 07, 2016 08:01 AM FORMER TOBACCO USE >1Y <7Y [facility] Feb 03, 2015 07:58 AM FORMER TOBACCO USE <1Y [facility] Feb 26, 2014 08:41 AM CURRENT TOBACCO USER [facility] May 13, 2011 01:45 PM CURRENT TOBACCO USER [facility] Advance Directives: All historical and current Section Date Range: From patient's date of to the date document was created. This section includes ALL of a patient's completed or amended [place] Advance and Rescinded Directives. The entries below indicate that a directive exists for the patient, but an actual copy is not included with this document. The data comes from all [facility]. Date Advance Directives Provider Source [...] the Encounter. The data comes from all [place] treatment facilities. 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 Palmira Graves MD LAST CREATININE 0.7 (04/23/24) Report Status: Verified Date Reported: APR 24, 2024 Date Verified: APR 24, 2024 Chinchilla Machine Operator E-Sig:/ES/SADIA DEE MD Report: PROCEDURES: Placement of [...] anesthesia. Using real-time CT fluoroscopy, a 5 [place] Yueh catheter was advanced into the collection in the left lower quadrant. A wire was coiled in the collection. The tract into the collection was dilated to accommodate the 12 [place] locking pigtail drainage catheter. The catheter was secured to the skin with monofilament suture and connected to JUAN bulb suction. Impression: Successful placement of a 12 [place] locking pigtail drainage catheter in the left lower quadrant abscess. This catheter is connected to JUAN bulb suction with flushes, as ordered. I, SADIA DEE, have reviewed the images and report. Primary Interpreting Staff: SADIA DEE MD, RADIOLOGIST (Chinchilla Machine Operator) Primary Interpreting Resident: JEFFREY FLOWER MD, FULFILLMENT COORDINATOR /SADIA SNYDER [facility] Apr 24, 2024 02:[address] NEEDLE PLACEMEN T (P): FLACA ROY [id number] -1950 M Exm Date: APR 24, 2024@14:11 Req Phys: TAURUS WOOD Loc: 04-24-2024@16:07 Im Loc: CT IMAGING Service: PRIMARY CARE [place] [address] (Case [id number] COMPLETE) CT SCAN FOR NEEDLE PLACEMENT (CT Detailed) CPT:58280 Reason for Study: diverticular abscess Clinical History: Report Status: Verified Date Reported: APR 24, 2024 Date Verified: APR 24, 2024 Chinchilla Machine Operator E-Sig:/ES/SADIA DEE MD Report: PROCEDURES: Placement of [...] anesthesia. Using real-time CT fluoroscopy, a 5 [place] Yueh catheter was advanced into the collection in the left lower quadrant. A wire was coiled in the collection. The tract into the collection was dilated to accommodate the 12 [place] locking pigtail drainage catheter. The catheter was secured to the skin with monofilament suture and connected to JUAN bulb suction. Impression: Successful placement of a 12 [place] locking pigtail drainage catheter in the left lower quadrant abscess. This catheter is connected to JUAN bulb suction with flushes, as ordered. I, SADIA DEE, have reviewed the images and report. Primary Interpreting Staff: SADIA DEE MD, RADIOLOGIST (Chinchilla Machine Operator) Primary Interpreting Resident: JEFFREY FLOWER MD, FULFILLMENT COORDINATOR /SADIA SNYDER [facility] Apr 23, 2024 06:[address] ABDOMEN/ PELVIS: FLACA ROY [id number] -1950 M Exm Date: APR 23, 2024@06:36 Req Phys: KAYLEIGHMCKAY Keith Amanda Loc: 3K04-24-2024@10:25 [facility] Loc: OUTSOURCE CT Service: Unknown (Case [id number] COMPLETE) NON VA CT ABDOMEN/PELVIS (CT Detailed) CPT:64786 Reason for Study: OUTSIDE STUDY Clinical History: OUTSIDE STUDY Report Status: Electronically Filed Date Reported: APR 24, 2024 Report: This is an outside Imaging study and/or report imported for continuity of patient care. This Imaging study and/or report was not reviewed or verified by a [place] Radiologist. Impression: This is an outside Imaging study and/or report imported for continuity of patient care. This Imaging study and/or report was not reviewed or verified by a [place] Radiologist. Primary Diagnostic Code: VERIFIED BY: / *ELECTRONICALLY FILED* [facility] Pathology Reports: +/- 30 days of [...] the Encounter. The data comes from all [place] treatment facilities. Date/Time Pathology Report Provider Source Apr 21, 2024 07:28 AM LR MICROBIOLOGY RE PORT: Reporting Lab: [facility] [CLIA# [id number]] [place] [address] Accession [UID]: [id number] [[id number]] Received: Apr 21, 2024@08:16 Collection sample: URINE Collection date: Apr 21, 2024 07:28 Provider: ANANDA HUGGINS Comment on specimen: RECEIVED IN STERILE CUP Test(s) ordered: CULTURE & SUSCEPTIBILITY...... completed: Apr 22, 2024 * BACTERIOLOGY FINAL REPORT => Apr 22, 2024 08:38 TECH CODE: [id number] CULTURE RESULTS: NO GROWTH 24 HOURS Bacteriology Remark(s): THIS REPORT IS FINAL =--=--=--=--=--=--=--=--=--=--=--=- -=--=--=--=--=--=--=--=--=--=--=--= --=--=-- Performing Laboratory: Bacteriology Report Performed By: [facility] [CLIA# [id number]] [place] [address] [facility] Encounter Notes: All associated encounter notes [...] 08:54 04/21/2024 ADDENDUM STATUS: COMPLETED Correction this clinical writer went to give pt his discharge instruction and remove his wrist band and the pt had already left the department. No logicare given. /alexi/ ABRAN MADRIGAL RN REGISTERED NURSE Signed: 04/21/2024 09:00 RADFAN [place],[facility] Apr 21, 2024 08:43 AM EMERGENCY DEPT [facility] CATION NOTE: LOCAL TITLE: EMERGENCY DEPT DISCHARGE [...] OR GO TO THE NEAREST EMERGENCY ROOM // NOE ROJAS MD [facility] Signed: 04/21/2024 08:43 NOE ROJAS [facility] Apr 21, 2024 08:03 AM PHYSICIAN EMERGENC [...] time. He also reports some dysuria. Mr. Roy tells me he has a history of [...] . No additional CRC surveillance recommended by life skills consultant. 9. Decreased vitamin D - 02.24.2017 [...] - By 02.13.[address] 03.14.2020 OSH(ED [place], [place]): Pt. Declined Admission. 03.14.2020 CT with Mild Sigmoid diverticulitis. 04.23.2020 ED([facility]): Declined admission. 17. 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 18. Ex-tobacco user 19. Impaired Fasting Glucose (SCT 457592073) - 02.26.2014 A1c 5.8%. 20. Adrenal mass [...] 24. Hiatal hernia 25. Shoulder Pain (SCT 84529459) 26. Trigger finger 27. [facility] Primary Care - Community Care Primary: Dr. Cathi Simeon, [place] [address]. Medications Active Outpatient Medications (excluding Supplies): Outpatient [...] possible treatment of this condition, however, Mr. Roy is very hesitant to start any medications, especially given his history of constipation. He is reassured that UTI has been ruled out. I advised him to follow-up with his primary care provider to discuss possible treatment options for overactive bladder, and consider other testing or referrals as appropriate. He is comfortable discharging from the emergency department. Disposition: Discharge home Noe Rojas MD ED Moonlighter /es/ NOE ROJAS MD [facility], [facility] Signed: 04/21/2024 08:45 Receipt Acknowledged By: 04/23/2024 09:11 /es/ Jatinder Cabrera MD Physician NOE ROJSA [facility] Apr 21, 2024 07:56 AM NURSING EMERGENCY [...] ABUSE/NEGLECT: REVIEW OF SYSTEM-FOCUSED ASSESSMENT Neurological: Alert [place] Coma Scale: Date and Time Preformed: Mar@08:02 [...] REGISTERED NURSE Signed: 04/21/2024 08:05 ABRAN MOJICA [facility] Apr 21, 2024 07:37 AM NURSING EMERGENCY [...] DAY FOR BLOOD PRESSURE Current Problems: Hypertension ([facility] [id number]) 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[facility] [id number]) Impulse control disorder ([facility] [id number]) Cervicalgia ([facility] [id number]) Sleep apnea ([facility] [id number]) Coronary artery disease ([facility] [id number]) Hyperlipidemia ([facility]CT 21115621) Colonoscopy normal ([facility]CT 295815843) Decreased vitamin D ([facility]CT 166843352) Aneurysm of common iliac artery (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) Pain of both knees ([facility] [id number])History of surgery ([facility] [id number]) Wrist pain (SCT 77646554) Carpal tunnel syndrome (SCT 10806395) Steatosis of liver (SCT 994017125) Diverticular disease (SCT 177842027) Infarction of kidney (SCT 45136565) Ex-tobacco user (SCT 407342307) Impaired Fasting Glucose (SCT 335152769)Adrenal mass (SCT 292819636) Abdominal aortic aneurysm (SCT 042776741Ufoqjmgpqe cyst (SCT 05825990) Multiple nodules of lung (SCT 297109691)Hiatal hernia (SCT 81041310) Shoulder Pain (SCT 90033704) Trigger finger (SCT 1887786) [facility] Primary Care (ICD-10-CM R69.) Identification of Seniors at Risk (ISAR):* Defer screen <75 Suicide Screen: [place] Suicide Severity Rating Scale (C-SSRS) screener 1. [...] responses to other questions. /alexi/ TAINA RIGGS RN NATUROPATHIC ONCOLOGY PROVIDER Signed: 04/21/2024 07:39 TAINA RIGGS [facility]
--- OUTSIDE RECORDS SUMMARY | 2024-05-04 01:00 | XMS_ITS | Encounter Summary ---
Author Name [facility] Organization [facility] Address [address] [place] [address] Care Team Providers Care Validation Architect Name Role Phone JATINDER CABRERA Primary Care [...] PART A Sep 29, 2016 PART A [id number] [phone] JUDY WEAVER PATIENT Selected Encounter This section includes the information on record at [facility] for the Encounter. Date/Time Encounter Type Encounter Description Reason Provider Source Apr 23, 2024 04:44 AM Outpatient Encounter TELEPHONE TRIAGE LEILANI ARAMBULA Alex Encounter Template Text not used by [facility] Plan of Treatment: Future Appointments (+ 6 months) and Future Tests (+/- 45 days) The Plan of Treatment section includes future care activities for the patient from all [facility] treatmentfacilities. This section includes future appointments and future orders which are active, pending or scheduled. Future Appointments This section includes appointments that were scheduled to occur 6 months from the date of the Encounter, up to a maximum of 20 appointments. The data comes from all [place] treatment facilities. Appointment Date/Time Appointment Type Appointme nt Facility Name Apr 27, 2024 02:30 PM AMBULATORY - NONE [facility] May 02, 2024 10:00 AM AMBULATORY - SURGERY [facility] May 04, 2024 09:00 AM AMBULATORY - NONE [facility] May 07, 2024 08:45 AM AMBULATORY - MEDICINE [facility] May 08, 2024 02:00 PM AMBULATORY - NONE [facility] May 09, 2024 07:30 AM AMBULATORY - SURGERY [facility] May 15, 2024 08:30 AM AMBULATORY - MEDICINE [facility] Active, Pending, and Scheduled Orders This section includes a listing of several types of active, pending, and scheduled orders, including clinic medications orders, diagnostic test orders, procedure orders and consult orders; where the start date of the order is 45 days before the date of the Encounter or 45 days after the date of theEncounter. The data comes from all [place] treatment facilities. Test Date/Time Test Type Test Details Facility Name Apr 26, 2024 10:10 AM Laboratory - Microbiology Order CULTURE & SUSCEPTIBILITY WOUND OTHER WC ONCE ~For Test: CULTURE & SUSCEPTIBILITY ~Culture sample from JUAN drain output [facility] Apr 26, 2024 10:10 AM Laboratory - Microbiology Order GRAM STAIN WOUND OTHER WC ONCE ~For Test: GRAM STAIN ~JUAN drain culture/gram stain [facility] Apr 27, 2024 02:30 PM Imaging - Ultrasound Order US AORTA (P) [facility] May 04, 2024 12:00 AM Laboratory - Chemistry Order BASIC METABOLIC PANEL+MG PLASMA SP ONCE [facility] May 08, 2024 02:00 PM Imaging - CT Scan Order CT (AP) ABDOMEN/PELVIS (P) LISANDRO [facility] Lab Results: +/- 30 days of the encounter This section includes the Chemistry and Hematology Lab Results on record with [place] for the patient. Radiology Reports and Pathology Reports are provided separately, in subsequent sections. Lab Results This section contains the Chemistry/Hematology Results that were resulted 30 days before or 30 daysafter the date of the Encounter. Date/Time Source Result Type Result - Unit Interpretation Reference Range Comment Apr 26, 2024 07:16 AM [facility] BASIC METABOLIC PANEL+MG Specimen Type: PLASMA No comment entered. Ordering Provider: JONO RANDOLPH Report Released Date/Time: Apr 25, 2024 02:50 PM Reporting Lab: [facility] [phone] Performing Lab: [facility] [address] CREATININE 0.7 mg/dL 0.7-1.2 UREA NITROGEN 15 mg/dL 8-26 GLUCOSE 106 mg/dL H 70-100 SODIUM 139 mmol/L 136-145 POTASSIUM 3.4 mmol/L L 3.5-5.1 CHLORIDE 105 mmol/L 98-107 CO2 25 mmol/L 22-29 CALCIUM 8.5 mg/dL 8.4-10.2 MAGNESIUM 2.2 mg/dL 1.6-2.6 ANION GAP 9 mmol/L 5-15 .CREAT EGFR(CKD-EPI) >90 >60 Apr 25, 2024 05:10 PM [facility] BASIC METABOLIC PANEL+MG Specimen Type: PLASMA No comment entered. Ordering Provider: GIOVANNI ADLER Report Released Date/Time: Apr 25, 2024 05:04 PM Reporting Lab: [facility] [phone] Performing Lab: [facility] [address] CREATININE 0.7 mg/dL 0.7-1.2 UREA NITROGEN 15 mg/dL 8-26 GLUCOSE 104 mg/dL H 70-100 SODIUM 139 mmol/L 136-145 POTASSIUM 3.2 mmol/L L 3.5-5.1 CHLORIDE 103 mmol/L 98-107 CO2 28 mmol/L 22-29 CALCIUM 8.5 mg/dL 8.4-10.2 MAGNESIUM 2.2 mg/dL 1.6-2.6 ANION GAP 8 mmol/L 5-15 .CREAT EGFR(CKD-EPI) >90 >60 Apr 25, 2024 07:46 AM [facility] BASIC METABOLIC PANEL+MG Specimen Type: PLASMA No comment entered. Ordering Provider: GIOVANNI ADLER Report Released Date/Time: Apr 24, 2024 12:37 PM Reporting Lab: [facility] [phone] Performing Lab: [facility] [address] CREATININE 0.7 mg/dL 0.7-1.2 UREA NITROGEN 14 mg/dL 8-26 GLUCOSE 127 mg/dL H 70-100 SODIUM 139 mmol/L 136-145 POTASSIUM 2.9 mmol/L L 3.5-5.1 CHLORIDE 101 mmol/L 98-107 CO2 29 mmol/L 22-29 CALCIUM 8.7 mg/dL 8.4-10.2 MAGNESIUM 2.3 mg/dL 1.6-2.6 ANION GAP 9 mmol/L 5-15 .CREAT EGFR(CKD-EPI) >90 >60 Apr 24, 2024 04:42 PM [facility] BASIC METABOLIC PANEL+MG Specimen Type: PLASMA No comment entered. Ordering Provider: GIOVANNI ADLER Report Released Date/Time: Apr 24, 2024 12:37 PM Reporting Lab: [facility] [phone] Performing Lab: [facility] [address] CREATININE 0.7 mg/dL 0.7-1.2 UREA NITROGEN 16 mg/dL 8-26 GLUCOSE 97 mg/dL 70-100 SODIUM 138 mmol/L 136-145 POTASSIUM 2.7 mmol/L L 3.5-5.1 CHLORIDE 99 mmol/L 98-107 CO2 30 mmol/L H 22-29 CALCIUM 8.4 mg/dL 8.4-10.2 MAGNESIUM 2.1 mg/dL 1.6-2.6 ANION GAP 9 mmol/L 5-15 .CREAT EGFR(CKD-EPI) >90 >60 Apr 24, 2024 07:36 AM [facility] BASIC METABOLIC PANEL+MG Specimen Type: PLASMA Comment: Critical Value Reported To: Cait Zamorano RN 04-24-24@08[facility]. Critical value report confirmed. Ordering Provider: AARON VICTOR Report Released Date/Time: Apr 23, 2024 05:30 PM Reporting Lab: [facility] [phone] Performing Lab: [facility] [address] CREATININE 0.7 mg/dL 0.7-1.2 UREA NITROGEN 16 mg/dL 8-26 GLUCOSE 105 mg/dL H 70-100 SODIUM 138 mmol/L 136-145 POTASSIUM 2.3 mmol/L LL 3.5-5.1 CHLORIDE 98 mmol/L 98-107 CO2 29 mmol/L 22-29 CALCIUM 8.3 mg/dL L 8.4-10.2 MAGNESIUM 2.2 mg/dL 1.6-2.6 ANION GAP 11 mmol/L 5-15 .CREAT EGFR(CKD-EPI) >90 >60 Apr 24, 2024 07:35 AM [facility] CBC & DIFF Specimen Type: BLOOD Comment: Automated Differential Performed Ordering Provider: AARON VICTOR Report Released Date/Time: Apr 23, 2024 05:30 PM Reporting Lab: [facility] [address] Performing Lab: [facility] [address] WBC 10.49 10*3/uL 4.0-11.0 RBC 3.83 10*6/uL [...] 10*3/uL 0-0.1 Apr 23, 2024 01:20 PM [facility] LACTIC ACID Specimen Type: PLASMA No comment entered. Ordering Provider: AARON VICTOR Report Released Date/Time: Apr 23, 2024 12:05 PM Reporting Lab: [facility] [address] Performing Lab: [facility] [address] LACTIC ACID 1.5 mmol/L 0.5-2.2 Apr 23, 2024 01:20 PM [facility] ACT PART THROMBO TIME Specimen Type: PLASMA No comment entered. Ordering Provider: AARON VICTOR Report Released Date/Time: Apr 23, 2024 12:05 PM Reporting Lab: [facility] [address] Performing Lab: [facility] [address] APTT 29.3 s 25.1-36.5 Apr 23, 2024 01:20 PM [facility] PROTHROMBIN TIME/INR Specimen Type: PLASMA No comment entered. Ordering Provider: AARON VICTOR Report Released Date/Time: Apr 23, 2024 12:05 PM Reporting Lab: [facility] [address] Performing Lab: [facility] [address] .INR 1.2 H 0.8-1.1 .PT 14.5 s H 9.4-12.5 Apr 23, 2024 01:20 PM [facility] COMPREHENSIVE METABOLIC PANEL+MG Specimen Type: PLASMA No comment entered. Ordering Provider: AARON VICTOR Report Released Date/Time: Apr 23, 2024 12:05 PM Reporting Lab: [facility] [address] Performing Lab: [facility] [address] CREATININE 0.7 mg/dL 0.7-1.2 UREA NITROGEN 19 [...] >90 >60 Apr 23, 2024 01:20 PM [facility] CBC & DIFF Specimen Type: BLOOD Comment: Automated Differential Performed Ordering Provider: AARON VICTOR Report Released Date/Time: Apr 23, 2024 12:05 PM Reporting Lab: [facility] [address] Performing Lab: [facility] [address] WBC 12.50 10*3/uL H 4.0-11.0 RBC 4.07 [...] 10*3/uL 0-0.1 Apr 21, 2024 07:28 AM [facility] URINALYSIS Specimen Type: URINE No comment entered. Ordering Provider: ANANDA HUGGINS Report Released Date/Time: Apr 21, 2024 07:37 AM Reporting Lab: [facility] [address] Performing Lab: [facility] [address] URINE COLOR COLORLESS SPECIFIC GRAVITY 1.009 1.003-1.03 [...] Height Weight Body Mass Index Source Apr 23, 2024 01:59 PM 211.1 30 [place] [facility] Social History: Smoking Status (Most current) and Tobacco Use (All prior to encounter date) This section includes the most current, and the historical, smoking and tobacco- related health factors from the [facility] facility where the Encounter took place. Current Smoking Status This section includes the most current smoking, or tobacco-related health factor, from the [facility] facility where the Encounter took place. Date/Time Current Smoking Status Comment Facil ity May 06, 2023 11:30 AM 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 [facility] Tobacco Use History This section includes a history of the smoking, or tobacco-related health factors, that were collected on or before the date of the Encounter. The data comes from the [facility] facility where the Encounter took place. Date/Time Smoking Status/Tobacco Use Comment F acility May 06, 2023 11:30 AM VA-TOBACCO QUIT 15 YRS OR MORE [facility] Jun 04, 2022 09:00 AM 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 [facility] Jun 04, 2022 09:00 AM VA-TOBACCO QUIT 15 YRS OR MORE [facility] Jul 10, 2021 08:00 AM 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 [facility] Jul 10, 2021 08:00 AM VA-TOBACCO QUIT 5 TO < 15 YRS [facility] May 23, 2020 08:30 AM 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 [facility] May 23, 2020 08:30 AM VA-TOBACCO QUIT 5 TO < 15 YRS [facility] Mar 20, 2019 04:03 PM 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 [facility] Mar 20, 2019 04:03 PM VA-TOBACCO QUIT 5 TO < 15 YRS [facility] Mar 21, 2018 08:13 AM FORMER TOBACCO USER 7Y OR GREATE R [facility] Feb 24, 2017 09:24 AM FORMER TOBACCO USER 7Y OR GREATE R [facility] January 07, 2016 08:01 AM FORMER TOBACCO USE >1Y <7Y [facility] Feb 03, 2015 07:58 AM FORMER TOBACCO USE <1Y [facility] Feb 26, 2014 08:41 AM CURRENT TOBACCO USER [facility] May 13, 2011 01:45 PM CURRENT TOBACCO USER [facility] Advance Directives: All historical and current Section Date Range: From patient's date of to the date document was created. This section includes ALL of a patient's completed or amended [place] Advance and Rescinded Directives. The entries below indicate that a directive exists for the patient, but an actual copy is not included with this document. The data comes from all [facility]. Date Advance Directives Provider Source Mar 23, 2016 CLINICAL WARNING [facility] Radiology Reports: +/- 30 days of [...] the Encounter. The data comes from all [place] treatment facilities. Date/Time Radiology Report Provider Source Apr 24, 2024 02:13 PM ABSCESS DRAIN PLAC EMENT PERITONEAL (P): FLACA WEAVER [id number] -1950 M Exm Date: APR 24, 2024@14:13 Req Phys: TAURUS WOOD Loc: 3K04-24-2024@16:07 Img Loc: INTERVENTIONAL RADIOLOGY Service: [place] [address] (Case [id number] COMPLETE) IR PERITONEAL/RETROPERITONEAL PER(ANI Detailed) CPT:73946 Reason for Study: diverticular abscess Clinical History: [...] any questions or notifications of critical findings: [id number] If ordering provider is a trainee, enter the name and contact information of the responsible staff physician. Palmira Graves MD LAST CREATININE 0.7 (04/23/24) Report Status: Verified Date Reported: APR 24, 2024 Date Verified: APR 24, 2024 Plastics Fabricator E-Sig:/ES/SADIA DEE MD Report: PROCEDURES: Placement of [...] anesthesia. Using real-time CT fluoroscopy, a 5 [place] Yueh catheter was advanced into the collection in the left lower quadrant. A wire was coiled in the collection. The tract into the collection was dilated to accommodate the 12 [place] locking pigtail drainage catheter. The catheter was secured to the skin with monofilament suture and connected to JUAN bulb suction. Impression: Successful placement of a 12 [place] locking pigtail drainage catheter in the left lower quadrant abscess. This catheter is connected to JUAN bulb suction with flushes, as ordered. I, SADIA DEE, have reviewed the images and report. Primary Interpreting Staff: SADIA DEE MD, RADIOLOGIST (Plastics Fabricator) Primary Interpreting Resident: JEFFREY FLOWER MD, HUMANE OFFICER /SADIA SNYDER [facility] Apr 24, 2024 02:[address] NEEDLE PLACEMEN T (P): FLACA WEAVER [id number] -1950 M Exm Date: APR 24, 2024@14:11 Req Phys: TAURUS WOOD Loc: 3K04-24-2024@16:07 Img Loc: CT IMAGING Service: [place] [address] (Case [id number] COMPLETE) CT SCAN FOR NEEDLE PLACEMENT (CT Detailed) CPT:83398 Reason for Study: diverticular abscess Clinical History: Report Status: Verified Date Reported: APR 24, 2024 Date Verified: APR 24, 2024 Plastics Fabricator E-Sig:/ES/SADIA DEE MD Report: PROCEDURES: Placement of [...] anesthesia. Using real-time CT fluoroscopy, a 5 [place] Yueh catheter was advanced into the collection in the left lower quadrant. A wire was coiled in the collection. The tract into the collection was dilated to accommodate the 12 [place] locking pigtail drainage catheter. The catheter was secured to the skin with monofilament suture and connected to JUAN bulb suction. Impression: Successful placement of a 12 [place] locking pigtail drainage catheter in the left lower quadrant abscess. This catheter is connected to JUAN bulb suction with flushes, as ordered. I, SADIA DEE, have reviewed the images and report. Primary Interpreting Staff: SADIA DEE MD, RADIOLOGIST (Plastics Fabricator) Primary Interpreting Resident: JEFFREY FLOWER MD, HUMANE OFFICER /SADIA SNYDER [facility] Apr 23, 2024 06:[address] ABDOMEN/ PELVIS: FLACA WEAVER [id number] -1950 M Ex Date: APR 23, 2024@06:36 Req Phys: MCKAY VICTOR Pat Loc: 04-24-2024@10:25 Img Loc: OUTSOURCE CT Service: Unknown (Case [id number] COMPLETE) NON VA CT ABDOMEN/PELVIS (CT Detailed) CPT:38837 Reason for Study: OUTSIDE STUDY Clinical History: OUTSIDE STUDY Report Status: Electronically Filed Date Reported: APR 24, 2024 Report: This is an outside Imaging study and/or report imported for continuity of patient care. This Imaging study and/or report was not reviewed or verified by a [facility] Radiologist. Impression: This is an outside Imaging study and/or report imported for continuity of patient care. This Imaging study and/or report was not reviewed or verified by a [facility] Radiologist. Primary Diagnostic Code: VERIFIED BY: / *ELECTRONICALLY FILED* [facility] Pathology Reports: +/- 30 days of [...] the Encounter. The data comes from all [place] treatment facilities. Date/Time Pathology Report Provider Source Apr 21, 2024 07:28 AM LR MICROBIOLOGY RE PORT: Reporting Lab: [facility] [CLIA# [id number]] [place] [address] Accession [UID]: [id number] [[id number]] Received: Apr 21, 2024@08:16 Collection sample: URINE Collection date: Apr 21, 2024 07:28 Provider: ANANDA HUGGINS Comment on specimen: RECEIVED IN STERILE CUP Test(s) ordered: CULTURE & SUSCEPTIBILITY...... completed: Apr 22, 2024 * BACTERIOLOGY FINAL REPORT => Apr 22, 2024 08:38 TECH CODE: [id number] CULTURE RESULTS: NO GROWTH 24 HOURS Bacteriology Remark(s): THIS REPORT IS FINAL =--=--=--=--=--=--=--=--=--=--=--=- -=--=--=--=--=--=--=--=--=--=--=--= --=--=-- Performing Laboratory: Bacteriology Report Performed By: [facility] [CLIA# [id number]] [address] [place] [address] [facility] Encounter Notes: All associated encounter notes This section contains the clinical notes associated to the Encounter. Date/Time Encounter Note(s) Provider Source Apr 23, 2024 08:23 AM ADDENDUM: LOCAL TITLE: Addendum STANDARD TITLE: ADDENDUM DATE OF NOTE: APR 23, 2024@08:23:45 ENTRY DATE: APR 23, 2024@08:23:46 AUTHOR: GUERITA AGUILA COSIGNER: URGENCY: STATUS: COMPLETED Spoke with patient and he indicated he had gone to the [place] ER and then went home and then went to the ER in [place] and they admitted him. He said I have diverticulitis and it is attached to my kidney and they are both perforated. They are sending me somewhere now but I am not sure where. I have another call coming in can I talk to you later? Told pt to let us know what happens and where he is going and he said he would and then said by and hung up. Including Dr. Cabrera as an fyi. /es/ GUERITA AGUILA RN REGISTERED NURSE Signed: 04/23/2024 08:26 Receipt Acknowledged By: 04/23/2024 09:15 /es/ Jatinder Cabrera MD Physician --- Original Document --- 04/23/24 CCC: CLINICAL TRIAGE: Patient Demographics Patient Name: FLACA WEAVER Patient Primary Address: [address] [place] [address] Patient Primary Phone: [phone] Patient : 1950 Patient Age: 73 Call Back Number: [phone] Caller/Recipient Relation to Patient: Self Emergency Contact: NIMO AYANA Triage Summary Conducted triage/discussed symptoms Nurse's Recommendation [...] approval or authorization for payment by the [facility] or its staff. Patient advised to report a community ED visit to the [facility] Office of Community Care at within 72 hours. Other course(s) of action Generated msg to PACT/Provider Provided guidance for worsening symptoms: *Caller/Patient* advised to call facilities [facility] Clinical Contact Center or seek immediate medical attention for new or worsening symptoms Nurse Summary Nurse Summary: [place] reports the following: Seen in ER Tuesday. This AM has new symptom. This AM is urinating blood and urine has strong odor. Triage deferred, in accordance with ER discharge instructions advised to return to [place] ER now, return to local ER prn, disclaimer read, call 911 prn, advised not to drive himself. initially reported he was going to local ER, then reports he is driving himself to [place] ER now. yelling, using profanity, expressed displeasure at his urinary symptoms and also reported GI symptoms, reports this has been ongoing. Again advised to report to [place] ER now. Please follow up with as needed. Thank you. Clinical Contact Center Codes Clinic/Location: [facility] [facility] PHONE [facility] RN IMPORTANT: This note was created by [facility] Clinical Contact Center staff. Please do not alert the staff member by adding them as a signer for future communications. Alerts are not monitored by this user. /es/ LEILANI ARAMBULA RN Signed: 04/23/2024 03:44 Receipt Acknowledged By: 04/23/2024 09:15 /es/ Jatinder Cabrera MD Physician 04/23/2024 08:21 /es/ GUERITA AGUILA RN REGISTERED NURSE 04/23/2024 ADDENDUM STATUS: COMPLETED Addendum: Residential address needs corrected as follows: [facility] [facility] [address] [facility] /alexi/ LEILANI ARAMBULA RN Signed: 04/23/2024 04:15 Receipt Acknowledged By: 04/23/2024 09:14 /alexi/ Jatinder Cabrera MD Physician 04/23/2024 08:21 /es/ GUERITA AGUILA, RN REGISTERED NURSE GUERITA AGUILA [facility] Apr 23, 2024 04:15 AM ADDENDUM: LOCAL TITLE: Addendum STANDARD TITLE: ADDENDUM DATE OF NOTE: APR 23, 2024@04:15:47 ENTRY DATE: APR 23, 2024@04:15:47 AUTHOR: LEILANI ARAMBULA EXP COSIGNER: URGENCY: STATUS: COMPLETED Addendum: Residential address needs corrected as follows: [address] [facility] [address] [facility] /alexi/ LEILANI ARAMBULA RN Signed: 04/23/2024 04:15 Receipt Acknowledged By: 04/23/2024 09:14 /es/ Jatinder Cabrera MD Physician 04/23/2024 08:21 /es/ GUERITA AGUILA RN REGISTERED NURSE --- Original Document --- 04/23/24 CCC: CLINICAL TRIAGE: Patient Demographics Patient Name: FLACA WEAVER Patient Primary Address: [address] [place] [address] Patient Primary Phone: [phone] Patient : 1950 Patient Age: 73 Call Back Number: [phone] Caller/Recipient Relation to Patient: Self Emergency Contact: NIMO PIÑA Triage Summary Conducted triage/discussed symptoms Nurse's Recommendation / WHEN: Now Nurse's Recommendation / WHERE: [facility] Patient Disposition Patient/Caregiver agrees to plan of care: Yes Patient WHERE: ED [place] Patient WHEN: Now Patient is Urgent or Emergent Nursing Plan and Disposition Referred patient to higher level of care Instructed to go to Emergency Room (ER) Advised of Financial Disclaimer: Patient advised that recommendation for care provided during the call does not constitute an approval or authorization for payment by the [facility] or its staff. Patient advised to report a community ED visit to the [facility] Office of Community Care at within 72 hours. Other course(s) of action Generated msg to PACT/Provider Provided guidance for worsening symptoms: *Caller/Patient* advised to call facilities [facility] Clinical Contact Center or seek immediate medical attention for new or worsening symptoms Nurse Summary Nurse Summary: [place] reports the following: Seen in ER Tuesday. This AM has new symptom. This AM is urinating blood and urine has strong odor. Triage deferred, in accordance with ER discharge instructions advised to return to [place] ER now, return to local ER prn, disclaimer read, call 911 prn, advised not to drive himself. [place] initially reported he was going to local ER, then reports he is driving himself to [place] ER now. [place] yelling, using profanity, expressed displeasure at his urinary symptoms and also reported GI symptoms, reports this has been ongoing. Again advised to report to [place] ER now. Please follow up with [place] as needed. Thank you. Clinical Contact Center Codes Clinic/Location: [facility] PHONE [facility] RN IMPORTANT: This note was created by [facility] Clinical Contact Center staff. Please do not alert the staff member by adding them as a signer for future communications. Alerts are not monitored by this user. /es/ LEILANI ARAMBULA RN Signed: 04/23/2024 03:44 Receipt Acknowledged By: 04/23/2024 09:15 /es/ Jatinder Cabrera MD Physician 04/23/2024 08:21 /es/ GUERITA AGUILA RN REGISTERED NURSE 04/23/2024 ADDENDUM STATUS: COMPLETED Spoke with patient and he indicated he had gone to the [place] ER and then went home and then went to the ER in [place] and they admitted him. He said I have diverticulitis and it is attached to my kidney and they are both perforated. They are sending me somewhere now but I am not sure where. I have another call coming in can I talk to you later? Told pt to let us know what happens and where he is going and he said he would and then said by and hung up. Including Dr. Cabrera as an fyi. /es/ GUERITA AGUILA, ROSALIND REGISTERED NURSE Signed: 04/23/2024 08:26 Receipt Acknowledged By: 04/23/2024 09:15 /alexi/ Jatinder Cabrera MD Physician LEILANI ARAMBULA [facility] Apr 23, 2024 03:44 AM RN PROGRESS NOTE: LOCAL TITLE: CCC: CLINICAL TRIAGE STANDARD TITLE: RN PROGRESS NOTE DATE OF NOTE: APR 23, 2024@03:44:29 ENTRY DATE: APR 23, 2024@03:44:29 AUTHOR: LEILANI ARAMBULA EXP COSIGNER: URGENCY: STATUS: COMPLETED CCC: CLINICAL TRIAGE Has ADDENDA Patient Demographics Patient Name: FLACA WEAVER Patient Primary Address: [address] [place] [address] Patient Primary Phone: [phone] Patient : 1950 Patient Age: 73 Call Back Number: [phone] Caller/Recipient Relation to Patient: Self Emergency Contact: NIMO PIÑA Triage Summary Conducted triage/discussed symptoms Nurse's Recommendation / WHEN: Now Nurse's Recommendation / WHERE: ED [place] Patient Disposition Patient/Caregiver agrees to plan of care: Yes Patient WHERE: ED [place] Patient WHEN: Now Patient is Urgent or Emergent Nursing Plan and Disposition Referred patient to higher level of care Instructed to go to Emergency Room (ER) Advised of Financial Disclaimer: Patient advised that recommendation for care provided during the call does not constitute an approval or authorization for payment by the [facility] or its staff. Patient advised to report a community ED visit to the national Office of [facility] at within 72 hours. Other course(s) of action Generated msg to PACT/Provider Provided guidance for worsening symptoms: *Caller/Patient* advised to call facilities [facility] Contact Center or seek immediate medical attention for new or worsening symptoms Nurse Summary Nurse Summary: reports the following: Seen in ER Tuesday. This AM has new symptom. This AM is urinating blood and urine has strong odor. Triage deferred, in accordance with ER discharge instructions advised to return to [facility] ER now, return to local ER prn, disclaimer read, call 911 prn, advised not to drive himself. initially reported he was going to local ER, then reports he is driving himself to [place] ER now. yelling, using profanity, expressed displeasure at his urinary symptoms and also reported GI symptoms, reports this has been ongoing. Again advised to report to [place] ER now. Please follow up with [place] as needed. Thank you. Clinical Contact Center Codes Clinic/Location: V23 [facility] PHONE CCC RN IMPORTANT: This note was created by [facility] Contact [facility] staff. Please do not alert the staff member by adding them as a signer for future communications. Alerts are not monitored by this user. /alexi/ LEILANI ARAMBULA RN Signed: 04/23/2024 03:44 Receipt Acknowledged By: 04/23/2024 09:15 /alexi/ Jatinder Cabrera MD Physician 04/23/2024 08:21 /alexi/ GUERITA AGUILA RN REGISTERED NURSE 04/23/2024 ADDENDUM STATUS: COMPLETED Addendum: Residential address needs corrected as follows: [address] [facility] [id number] [facility] /alexi/ LEILANI ARAMBULA RN Signed: 04/23/2024 04:15 Receipt Acknowledged By: 04/23/2024 09:14 /alexi/ Jatinder Cabrera MD Physician 04/23/2024 08:21 /alexi/ GUERITA AGUILA, RN REGISTERED NURSE 04/23/2024 ADDENDUM STATUS: COMPLETED Spoke with patient and he indicated he had gone to the [place] ER and then went home and then went to the ER in [place] and they admitted him. He said I have diverticulitis and it is attached to my kidney and they are both perforated. They are sending me somewhere now but I am not sure where. I have another call coming in can I talk to you later? Told pt to let us know what happens and where he is going and he said he would and then said by and hung up. Including Dr. Cabrera as an fyi. /alexi/ GUERITA AGUILA RN REGISTERED NURSE Signed: 04/23/2024 08:26 Receipt Acknowledged By: 04/23/2024 09:15 /alexi/ Jatinder Cabrera MD Physician LEILANI ARAMBULA [facility]
--- OUTSIDE RECORDS SUMMARY | 2024-05-04 01:01 | XMS_ITS ---
Author Name [facility] Organization [facility] Address [address] [place] [address] Care Team Providers Care Tile Molder Name Role Phone PREMA CABRERA Primary Care Provider Unavail able Insurance [...] PART A Sep 29, 2016 PART A [id number] [phone] JUDY ROY PATIENT Selected Encounter This section includes the information on record at [place] for the Encounter. Date/Time Encounter Type Encounter Description Reason Pro vider Source Apr 23, 2024 11:20 AM Drainage of Peritoneal Cavity with Drain Dev, Perc Approach HOSPITALIZATION ICD-10-CM J43.9 Emphysema, unspecified TEAMNURIA IHAlex Encounter Template Text not used by [place] Assessments - Encounter Diagnoses This section includes the primary and secondary diagnoses documented for the Encounter. 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 [facility] Apr 26, 2024 01:55 PM SECONDARY Atrioventricular block, second degree [facility] Apr 26, 2024 01:55 PM SECONDARY Chronic diastolic (congestive) heart failure [facility] Apr 26, 2024 01:55 PM SECONDARY Emphysema, unspecified [facility] Apr 26, 2024 01:55 PM SECONDARY Hypertensive heart disease with heart failure [facility] Apr 26, 2024 01:55 PM SECONDARY Hypokalemia [facility] Apr 26, 2024 01:55 PM SECONDARY Obesity, unspecified [facility] Apr 26, 2024 01:55 PM SECONDARY Obstructive sleep apnea (adult) (pediatric) [facility] Apr 26, 2024 01:55 PM SECONDARY Vesicointestinal fistula [facility] Plan of Treatment: Future Appointments (+ 6 months) and Future Tests (+/- 45 days) The Plan of Treatment section includes future care activities for the patient from all [facility]. This section includes future appointments and future orders which are active, pending or scheduled. Future Appointments This section includes appointments that were scheduled to occur 6 months from the date of the Encounter, up to a maximum of 20 appointments. The data comes from all [facility]. Appointment Date/Time Appointment Type Appointme nt Facility Name Apr 27, 2024 02:30 PM AMBULATORY - NONE [facility] May 02, 2024 10:00 AM AMBULATORY - SURGERY [facility] May 04, 2024 09:00 AM AMBULATORY - NONE [facility] May 07, 2024 08:45 AM AMBULATORY - MEDICINE [facility] May 08, 2024 02:00 PM AMBULATORY - NONE [facility] May 09, 2024 07:30 AM AMBULATORY - SURGERY [facility] May 15, 2024 08:30 AM AMBULATORY - MEDICINE [facility] Active, Pending, and Scheduled Orders This section includes a listing of several types of active, pending, and scheduled orders, including clinic medications orders, diagnostic test orders, procedure orders and consult orders; where the start date of the order is 45 days before the date of the Encounter or 45 days after the date of theEncounter. The data comes from all [facility]. Test Date/Time Test Type Test Details Facility Name Apr 26, 2024 10:10 AM Laboratory - Microbiology Order CULTURE & SUSCEPTIBILITY WOUND OTHER WC ONCE ~For Test: CULTURE & SUSCEPTIBILITY ~Culture sample from JUAN drain output [facility] Apr 26, 2024 10:10 AM Laboratory - Microbiology Order GRAM STAIN WOUND OTHER WC ONCE ~For Test: GRAM STAIN ~JUAN drain culture/gram stain [facility] Apr 27, 2024 02:30 PM Imaging - Ultrasound Order US AORTA (P) [facility] May 04, 2024 12:00 AM Laboratory - Chemistry Order BASIC METABOLIC PANEL+MG PLASMA SP ONCE [facility] May 08, 2024 02:00 PM Imaging - CT Scan Order CT (AP) ABDOMEN/PELVIS (P) LISANDRO [facility] Lab Results: +/- 30 days of the encounter This section includes the Chemistry and Hematology Lab Results on record with [place] for the patient. Radiology Reports and Pathology Reports are provided separately, in subsequent sections. Lab Results This section contains the Chemistry/Hematology Results that were resulted 30 days before or 30 daysafter the date of the Encounter. Date/Time Source Result Type Result - Unit Interpretation Reference Range Comment Apr 26, 2024 07:16 AM [facility] BASIC METABOLIC PANEL+MG Specimen Type: PLASMA No comment entered. Ordering Provider: JONO CLINTON Report Released Date/Time: Apr 25, 2024 02:50 PM Reporting Lab: [facility] [phone] Performing Lab: [facility] [phone] CREATININE 0.7 mg/dL 0.7-1.2 UREA NITROGEN 15 mg/dL 8-26 GLUCOSE 106 mg/dL H 70-100 SODIUM 139 mmol/L 136-145 POTASSIUM 3.4 mmol/L L 3.5-5.1 CHLORIDE 105 mmol/L 98-107 CO2 25 mmol/L 22-29 CALCIUM 8.5 mg/dL 8.4-10.2 MAGNESIUM 2.2 mg/dL 1.6-2.6 ANION GAP 9 mmol/L 5-15 .CREAT EGFR(CKD-EPI) >90 >60 Apr 25, 2024 05:10 PM [facility] BASIC METABOLIC PANEL+MG Specimen Type: PLASMA No comment entered. Ordering Provider: GIOVANNI QUIÑONEZ Report Released Date/Time: Apr 25, 2024 05:04 PM Reporting Lab: [facility] [phone] Performing Lab: [facility] [address] CREATININE 0.7 mg/dL 0.7-1.2 UREA NITROGEN 15 mg/dL 8-26 GLUCOSE 104 mg/dL H 70-100 SODIUM 139 mmol/L 136-145 POTASSIUM 3.2 mmol/L L 3.5-5.1 CHLORIDE 103 mmol/L 98-107 CO2 28 mmol/L 22-29 CALCIUM 8.5 mg/dL 8.4-10.2 MAGNESIUM 2.2 mg/dL 1.6-2.6 ANION GAP 8 mmol/L 5-15 .CREAT EGFR(CKD-EPI) >90 >60 Apr 25, 2024 07:46 AM [facility] BASIC METABOLIC PANEL+MG Specimen Type: PLASMA No comment entered. Ordering Provider: GIOVANNI QUIÑONEZ Report Released Date/Time: Apr 24, 2024 12:37 PM Reporting Lab: [facility] [address] Performing Lab: [facility] [address] CREATININE 0.7 mg/dL 0.7-1.2 UREA NITROGEN 14 mg/dL 8-26 GLUCOSE 127 mg/dL H 70-100 SODIUM 139 mmol/L 136-145 POTASSIUM 2.9 mmol/L L 3.5-5.1 CHLORIDE 101 mmol/L 98-107 CO2 29 mmol/L 22-29 CALCIUM 8.7 mg/dL 8.4-10.2 MAGNESIUM 2.3 mg/dL 1.6-2.6 ANION GAP 9 mmol/L 5-15 .CREAT EGFR(CKD-EPI) >90 >60 Apr 24, 2024 04:42 PM [facility] BASIC METABOLIC PANEL+MG Specimen Type: PLASMA No comment entered. Ordering Provider: GIOVANNI QUIÑONEZ Report Released Date/Time: Apr 24, 2024 12:37 PM Reporting Lab: [facility] [phone] Performing Lab: [facility] [address] CREATININE 0.7 mg/dL 0.7-1.2 UREA NITROGEN 16 mg/dL 8-26 GLUCOSE 97 mg/dL 70-100 SODIUM 138 mmol/L 136-145 POTASSIUM 2.7 mmol/L L 3.5-5.1 CHLORIDE 99 mmol/L 98-107 CO2 30 mmol/L H 22-29 CALCIUM 8.4 mg/dL 8.4-10.2 MAGNESIUM 2.1 mg/dL 1.6-2.6 ANION GAP 9 mmol/L 5-15 .CREAT EGFR(CKD-EPI) >90 >60 Apr 24, 2024 07:36 AM [facility] BASIC METABOLIC PANEL+MG Specimen Type: PLASMA Comment: Critical Value Reported To: Emerita Zamorano RN 04-24-24@[address] [place] [address]. Critical value report confirmed. Ordering Provider: AARON VICTOR Report Released Date/Time: Apr 23, 2024 05:30 PM Reporting Lab: [facility] [phone] Performing Lab: [facility] [address] CREATININE 0.7 mg/dL 0.7-1.2 UREA NITROGEN 16 mg/dL 8-26 GLUCOSE 105 mg/dL H 70-100 SODIUM 138 mmol/L 136-145 POTASSIUM 2.3 mmol/L LL 3.5-5.1 CHLORIDE 98 mmol/L 98-107 CO2 29 mmol/L 22-29 CALCIUM 8.3 mg/dL L 8.4-10.2 MAGNESIUM 2.2 mg/dL 1.6-2.6 ANION GAP 11 mmol/L 5-15 .CREAT EGFR(CKD-EPI) >90 >60 Apr 24, 2024 07:35 AM [facility] CBC & DIFF Specimen Type: BLOOD Comment: Automated Differential Performed Ordering Provider: AARON VICTOR Report Released Date/Time: Apr 23, 2024 05:30 PM Reporting Lab: [facility] [phone] Performing Lab: [facility] [address] WBC 10.49 10*3/uL 4.0-11.0 RBC 3.83 10*6/uL [...] 10*3/uL 0-0.1 Apr 23, 2024 01:20 PM [facility] LACTIC ACID Specimen Type: PLASMA No comment entered. Ordering Provider: AARON VICTOR Report Released Date/Time: Apr 23, 2024 12:05 PM Reporting Lab: [facility] [address] Performing Lab: [facility] [address] LACTIC ACID 1.5 mmol/L 0.5-2.2 Apr 23, 2024 01:20 PM [facility] PROTHROMBIN TIME/INR Specimen Type: PLASMA No comment entered. Ordering Provider: AARON VICTOR Report Released Date/Time: Apr 23, 2024 12:05 PM Reporting Lab: [facility] [phone] Performing Lab: [facility] [address] .INR 1.2 H 0.8-1.1 .PT 14.5 s H 9.4-12.5 Apr 23, 2024 01:20 PM [facility] ACT PART THROMBO TIME Specimen Type: PLASMA No comment entered. Ordering Provider: AARON VICTOR Report Released Date/Time: Apr 23, 2024 12:05 PM Reporting Lab: [facility] [address] Performing Lab: [facility] [address] APTT 29.3 s 25.1-36.5 Apr 23, 2024 01:20 PM [facility] COMPREHENSIVE METABOLIC PANEL+MG Specimen Type: PLASMA No comment entered. Ordering Provider: AARON VICTOR Report Released Date/Time: Apr 23, 2024 12:05 PM Reporting Lab: [facility] [address] Performing Lab: [facility] [address] CREATININE 0.7 mg/dL 0.7-1.2 UREA NITROGEN 19 [...] >90 >60 Apr 23, 2024 01:20 PM [facility] CBC & DIFF Specimen Type: BLOOD Comment: Automated Differential Performed Ordering Provider: AARON VICTOR Report Released Date/Time: Apr 23, 2024 12:05 PM Reporting Lab: [facility] [address] Performing Lab: [facility] [address] WBC 12.50 10*3/uL H 4.0-11.0 RBC 4.07 [...] 10*3/uL 0-0.1 Apr 21, 2024 07:28 AM [facility] URINALYSIS Specimen Type: URINE No comment entered. Ordering Provider: ANANDA HUGGINS Report Released Date/Time: Apr 21, 2024 07:37 AM Reporting Lab: [facility] [address] Performing Lab: [facility] [address] URINE COLOR COLORLESS SPECIFIC GRAVITY 1.009 1.003-1.03 [...] 23, 2024 01:59 PM 211.1 30 [facility] Social History: Smoking Status (Most current) and Tobacco Use (All prior to encounter date) This section includes the most current, and the historical, smoking and tobacco- related health factors from the [facility] facility where the Encounter took place. Current Smoking Status This section includes the most current smoking, or tobacco-related health factor, from the [place] facility where the Encounter took place. Date/Time Current Smoking Status Comment Juan Manuel putnam May 06, 2023 11:30 AM 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 [facility] Tobacco Use History This section includes a history of the smoking, or tobacco-related health factors, that were collected on or before the date of the Encounter. The data comes from the [facility] facility where the Encounter took place. Date/Time Smoking Status/Tobacco Use Comment F acility May 06, 2023 11:30 AM VA-TOBACCO QUIT 15 YRS OR MORE [facility] Jun 04, 2022 09:00 AM 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 [facility] Jun 04, 2022 09:00 AM VA-TOBACCO QUIT 15 YRS OR MORE [facility] Jul 10, 2021 08:00 AM 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 [facility] Jul 10, 2021 08:00 AM VA-TOBACCO QUIT 5 TO < 15 YRS [facility] May 23, 2020 08:30 AM 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 [facility] May 23, 2020 08:30 AM VA-TOBACCO QUIT 5 TO < 15 YRS [facility] Mar 20, 2019 04:03 PM 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 [facility] Mar 20, 2019 04:03 PM VA-TOBACCO QUIT 5 TO < 15 YRS [facility] Mar 21, 2018 08:13 AM FORMER TOBACCO USER 7Y OR GREATE R [facility] Feb 24, 2017 09:24 AM FORMER TOBACCO USER 7Y OR GREATE R [facility] January 07, 2016 08:01 AM FORMER TOBACCO USE >1Y <7Y [facility] Feb 03, 2015 07:58 AM FORMER TOBACCO USE <1Y [facility] Feb 26, 2014 08:41 AM CURRENT TOBACCO USER [facility] May 13, 2011 01:45 PM CURRENT TOBACCO USER [facility] Advance Directives: All historical and current Section Date Range: From patient's date of to the date document was created. This section includes ALL of a patient's completed or amended [place] Advance and Rescinded Directives. The entries below indicate that a directive exists for the patient, but an actual copy is not included with this document. The data comes from all [facility]. Date Advance Directives Provider Source Mar 23, 2016 CLINICAL WARNING [facility] Radiology Reports: +/- 30 days of [...] the Encounter. The data comes from all [place] treatment facilities. Date/Time Radiology Report Provider Source Apr 24, 2024 02:13 PM ABSCESS DRAIN PLAC EMENT PERITONEAL (P): FLACA ROY [id number] -1950 M Exm Date: APR 24, 2024@14:13 Req Phys: TAURUS WOOD Loc: 3KS/04-24-2024@16:07 Img Loc: INTERVENTIONAL RADIOLOGY Service: PRIMARY CARE [place] [address] (Case [id number] COMPLETE) IR PERITONEAL/RETROPERITONEAL PER(ANI Detailed) CPT:31259 Reason for Study: diverticular abscess Clinical History: [place] IS NOT under investigation for COVID-19 or is COVID-19 negative 73yo M with hx of recurrent diverticulitis, transferred from [facility] 04/[address] 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 Found to have 2nd degree heart block, planning pacemaker placement Contact number for responsible provider who can be reached for any questions or notifications of critical findings: [phone] If ordering provider is a trainee, enter the name and contact information of the responsible staff physician. Palmira Powell MD LAST CREATININE 0.7 (04/23/24) Report Status: Verified Date Reported: APR 24, 2024 Date Verified: APR 24, 2024 Retail Office Associate E-Sig:/ES/SADIA DEE MD Report: PROCEDURES: Placement of [...] anesthesia. Using real-time CT fluoroscopy, a 5 Samoan Yueh catheter was advanced into the collection in the left lower quadrant. A wire was coiled in the collection. The tract into the collection was dilated to accommodate the 12 Samoan locking pigtail drainage catheter. The catheter was secured to the skin with monofilament suture and connected to JUAN bulb suction. Impression: Successful placement of a 12 Samoan locking pigtail drainage catheter in the left lower quadrant abscess. This catheter is connected to JUAN bulb suction with flushes, as ordered. I, SADIA DEE, have reviewed the images and report. Primary Interpreting Staff: SADIA DEE MD, RADIOLOGIST (Retail Office Associate) Primary Interpreting Resident: LUCAS FLOWER MD, SECURITY INCIDENT HANDLER /SADIA SNYDER [facility] Apr 24, 2024 02:[address] NEEDLE PLACEMEN T (P): FLACA ROY [id number] -1950 M Exm Date: APR 24, 2024@14:11 Req Phys: TAURUS WOOD Loc: 3K04-24-2024@16:07 Img Loc: CT IMAGING Service: PRIMARY CARE [place] [address] (Case [id number] COMPLETE) CT SCAN FOR NEEDLE PLACEMENT (CT Detailed) CPT:16090 Reason for Study: diverticular abscess Clinical History: Report Status: Verified Date Reported: APR 24, 2024 Date Verified: APR 24, 2024 Retail Office Associate E-Sig:/ES/SADIA DEE MD Report: PROCEDURES: Placement of [...] anesthesia. Using real-time CT fluoroscopy, a 5 Samoan Yueh catheter was advanced into the collection in the left lower quadrant. A wire was coiled in the collection. The tract into the collection was dilated to accommodate the 12 Samoan locking pigtail drainage catheter. The catheter was secured to the skin with monofilament suture and connected to JUAN bulb suction. Impression: Successful placement of a 12 Samoan locking pigtail drainage catheter in the left lower quadrant abscess. This catheter is connected to JUAN bulb suction with flushes, as ordered. I, SADIA DEE, have reviewed the images and report. Primary Interpreting Staff: SADIA DEE MD, RADIOLOGIST (Retail Office Associate) Primary Interpreting Resident: LUCAS FLOWER MD, SECURITY INCIDENT HANDLER /SADIA SNYDER [facility] Apr 23, 2024 06:[address] ABDOMEN/ PELVIS: FLACA ROY [id number] -1950 M Exm Date: APR 23, 2024@06:36 Req Phys: MCKAY VICTOR Loc: 3K04-24-2024@10:25 Img Loc: OUTSOURCE CT Service: Unknown (Case [id number] COMPLETE) NON [place] CT ABDOMEN/PELVIS (CT Detailed) CPT:89597 Reason for Study: OUTSIDE STUDY Clinical History: OUTSIDE STUDY Report Status: Electronically Filed Date Reported: APR 24, 2024 Report: This is an outside Imaging study and/or report imported for continuity of patient care. This Imaging study and/or report was not reviewed or verified by a [facility] Radiologist. Impression: This is an outside Imaging study and/or report imported for continuity of patient care. This Imaging study and/or report was not reviewed or verified by a [facility] Radiologist. Primary Diagnostic Code: VERIFIED BY: / *ELECTRONICALLY FILED* [facility] Pathology Reports: +/- 30 days of [...] the Encounter. The data comes from all [facility] treatment facilities. Date/Time Pathology Report Provider Source Apr 21, 2024 07:28 AM LR MICROBIOLOGY RE PORT: Reporting Lab: [facility] [CLIA# [id number]] [place] [address] Accession [UID]: [id number] [[id number]] Received: Apr 21, 2024@08:16 Collection sample: URINE Collection date: Apr 21, 2024 07:28 Provider: ANANDA HUGGINS Comment on specimen: RECEIVED IN STERILE CUP Test(s) ordered: CULTURE & SUSCEPTIBILITY...... completed: Apr 22, 2024 * BACTERIOLOGY FINAL REPORT => Apr 22, 2024 08:38 TECH CODE: [id number] CULTURE RESULTS: NO GROWTH 24 HOURS Bacteriology Remark(s): THIS REPORT IS FINAL =--=--=--=--=--=--=--=--=--=--=--=- -=--=--=--=--=--=--=--=--=--=--=--= --=--=-- Performing Laboratory: Bacteriology Report Performed By: [facility] [CLIA# [id number]] [place] [address] [facility] Encounter Notes: All associated encounter notes This section contains the clinical notes associated to the Encounter. Date/Time Encounter Note(s) Provider Source Apr 26, 2024 01:55 PM DISCHARGE SUMMARY: LOCAL TITLE: Discharge Summary STANDARD TITLE: DISCHARGE SUMMARY DICT DATE: APR 26, 2024@15:39 ENTRY DATE: APR 26, 2024@15:40:38 DICTATED BY: GERARD CLINTON ATTENDING: DODIE QUIÑONEZ URGENCY: routine STATUS: COMPLETED Discharge Summary DRAFT UNTIL SIGNED BY ATTENDING Admission Date: Mar Discharge Date: Mar Discharge Destination: Home PRIMARY DIAGNOSIS: Complicated diverticulitis with large abscess and colovesicular fistula SECONDARY DIAGNOSES: Hypokalemia, Heart failure with presrved ejection fraction, Second degree Mobitz I AV block, Coronary artery disease. OPERATIVE/INVASIVE PROCEDURES: Abscess Drain placed by IR on 04/24 CONSULTS: Colorectal Surgery Interventinal Radiology EP vial gauger BRIEF SUMMARY OF H&P: 73 year old man with PMHx of reoccuring diverticulitis, HFpEF, and CAD who was transferred from [facility] after CT showed complicated diverticulitis with a 7.4cm x 4.2cm abscess and new colovesicular fistula. On admission, pt noted to be hemodynamically stable w/o sepsis, but significantly hypokalemic. HOSPITAL COURSE BY PROBLEM: #Complicated diverticulitis #Large abscess #[place]-vesicular fistula Pt was noted to be aspetic and vitally stable w/ nml diet throughout his stay. Colorectal surgery evaluated pt and determined no acute surgery. IR guided drainage catheter placed on 04/24 and noted to be CDI w/ brownish discharge. Mathew placed for feculuent output. Plan from colorectal to follow up in one week to assess drain output and discuss possible sigmoidectomy for his colovesicular fistula. He was treated with Zosyn throughout his hospital stay and switched to oral Augmentin on discharge. #Hypokalemia Potassium of 2.6 on admission with laine of 2.3, asymptomatic. Etiology unclear, thought due to diuretics + GI losses. Home Lasix, HCTZ-Lisinopril were held on admission and discharge. Pt was repleted and monitored closely with a K+ of 3.4 on discharge. He is to follow up for K+ recheck in one week. #Mobitz I AV Block Inital concern for type II AV block. EP consulted and deteremined Type I consistent with previous admissions. Pt w/ significant bradycardia throuhgout his stay. Baseline cardiac symptoms managed well with home meds. #HFpEF Appeared grossly euvolumic on admission. Repeat Echo with EF of 60-65% - grossly normal study. Home meds spironolactone, Empaglifozin restarted. EXAM AT THE TIME OF DISCHARGE: Temp: 99.6 F [37.6 C] (04/21/2024 07:35) Pulse: 59 (04/24/2024 16:00) BP: 147/71 (04/24/2024 16:00) Resp: 14 (04/24/2024 16:00) O2 sat: 96% (04/21/2024 07:35) DISCHARGE INFORMATION: Disposition on discharge, diet, physical activity, and follow-up care orders are included in the discharge orders. Patient to follow up in one week in clinic with colorectal surgery to discuss drain output and possible sigmoidectomy. Mathew and drain supplies ordered and sent home with patient. Patient to follow up with his primary care physician next week. A recheck on his potassium should be completed and evaluation of his home meds and whether they can be restarted at that time. (Hctz-Lisinopril and Lasix held). MEDICATION CHANGES: See the [facility] Med Instruction/Reconciliation note for a complete medication list. - Augementin until outpatient follow up (10 days) - Phenazopyridine for bladder pain - Leg bag, urinary drainage set PERTINENT SOCIAL FACTORS: None FOLLOW UP: As documented above. More than 30 minutes was spent on discharge management services and coordination of care for this . /alexi/ GERARD CLINTON Signed: 04/26/2024 16:18 /alexi/ DODIE QUIÑONEZ MD STAFF PHYSICIAN - HOSPITALIST Cosigned: 05/01/2024 08:30 Receipt Acknowledged By: 05/01/2024 15:54 /alexi/ Prema Cabrera MD Physician GERARD CLINTON [facility] Apr 26, 2024 12:44 PM NURSING DISCHARGE NOTE: LOCAL TITLE: [facility] NURSING DISCHARGE SUMMARY STANDARD TITLE: NURSING DISCHARGE NOTE DATE OF NOTE: APR 26, 2024@12:44 ENTRY DATE: APR 26, 2024@12:44:26 AUTHOR: ADENIKE RIVERA COSIGNER: URGENCY: STATUS: COMPLETED Nursing Discharge Summary Home Discharge date and time: Mar Accompanied by: Family Ambulatory, Wheelchair Transportation: Other (specify): Family is picking up patient Verify that the Contact Name and Phone Number are correct: FLACA ROY Condition: Alert, Oriented Skin Condition: Intact Incision: No Education/Teach Back Patient and/or Caregiver was given dubon information in discharge instruction and able to teach back verbally or by return demonstration. Yes, demonstrated understanding Does patient have vascular access? No Does patient require assistance with outpatient visits due to cognitive limitations, mobility limitations, or has need for nursing assistance throughout the clinic day? Patient DOES NOT have an active JOSÉ flag assigned. No Wristband Removal:Patient wristband was removed and destroyed by being placed in the shred bin. When VA wristband is removed destroy the wristband by using a shredding machine, marking, or cutting the sensitive information that renders the band not readable or re-constructible to any degree. /alexi/ Adenike Rivera rib cutter nurse, SICU Signed: 04/26/2024 12:46 ADENIKE RIVERA [facility] Apr 26, 2024 12:30 PM EDUCATION DISCHARGE NOTE: LOCAL TITLE: EDUCATION NURSING DISCHARGE INSTRUCTIONS STANDARD TITLE: EDUCATION DISCHARGE NOTE DATE OF NOTE: APR 26, 2024@12:30 ENTRY DATE: APR 26, 2024@12:32:43 AUTHOR: ADENIKE RIVERA EXP COSIGNER: URGENCY: STATUS: COMPLETED IMPORTANT PHONE NUMBERS: IF YOU HAVE A LIFE THREATENING EMERGENCY CALL 911 If you have questions about anything related to your inpatient care at the [facility] or your future care in the [facility], call the Call Center or After Hour numbers listed below. If you receive care at another [facility] facility or with a community provider, you will need to call them for questions about your future care. -Call Center Tuesday-Tuesday, 7:30-4:30 at [phone] or Toll Free -After Hours- toll-free -Outpatient Pharmacy - -Verification of Appointments for the following month - *'S CRISIS LINE NUMBER IS (TALK)* Discharge from ICU, Acute Care, Acute Rehab, or [facility] C-SSRS Screening [place] Suicide Severity Rating Scale (C-SSRS) screener 1. [...] required due to responses to other questions. Written education reviewed and given on: Other diagnosis/instructions: Care of indwelling mathew and JUAN drain Patient and/or other caregiver has had an opportunity to participate in the development of the discharge plan. The patient had an opportunity to ask questions. While in the hospital you were treated for: diverticulitis w/colovesical fistula and adjacent abscess Primary Care Team: Primary Care Team: JUANITO PACT IRIS Primary Care Provider: PREMA CABRERA No Associate Provider Assigned. Attending Physician: DODIE QUIÑONEZ You are being discharged to: Home Phone number you can be contacted at for the next 2 weeks: [phone] Your diet is Cardiac diet Activity: Bathing: per colorectal When you go home you will need: Treatments: Catheter care Other: JUAN drain care Supplies: Dressing supplies: Drain sponges Paper tape Catheter supplies: Mathew bag Leg bag General supplies: Alcohol pads 5 and 10 ml syringes Continuing care needs: If you receive care at [facility] you will need to call the Primary Care Call Center number at [phone]. If you receive care at another [facility] facility or community provider, you will need to call them to arrange your follow up care. For surgical patients - If you don't receive a follow up clinic appointment within a week, please call the Call Center at [phone]. Future appointments: 04/27/2024 14:30 JUANITO ULTRASOUND AM INPATIENT APPOINTMENT 05/02/2024 10:00 JUANITO C/R FOLLOW-UP CLINIC INPATIENT APPOINTMENT A copy of these instructions has been given to: Patient IM - Immunizations ADMINISTERED Immunization Series Date Facility Reaction Info COVID-19 (PFIZER), MRNA, LNP-S, * 1 10/25/2022 [facility] COVID-19 (PFIZ[place]), MRNA, LNP-S, * 01/21/2022 [facility] COVID-19 (PFIZER), MRNA, LNP-S, * 3 07/10/2021 [facility] <C> COVID-19 (PFIZER), MRNA, LNP-S, * 2 11/22/2020 [facility] <C> COVID-19 (PFIZER), MRNA, LNP-S, * 1 11/01/2020 [facility] <C> COVID-19 (PFIZER), MRNA, LNP-S, * 4 01/21/2022 [facility] <C> COVID-19 (PFIZER), MRNA, LNP-S, * 01/30/2024 [facility] INFLUENZA, ADJUVANTED, QUADRIVAL* 06/04/2022 [facility] INFLUENZA, HIGH-DOSE, TRIVALENT,* 06/02/2017 [facility] INFLUENZA, SPLIT VIRUS, QUADRIVA* 07/10/2021 [facility] INFLUENZA, SPLIT VIRUS, QUADRIVA* 05/23/2020 [facility] INFLUENZA, SPLIT VIRUS, TRIVALEN* 06/14/2019 [facility] INFLUENZA, SPLIT VIRUS, TRIVALEN* 06/06/2018 [facility] INFLUENZA, SPLIT VIRUS, TRIVALEN* 06/24/2015 [facility] INFLUENZA, UNSPECIFIED FORMULATI* 06/04/2022 [facility] INFLUENZA, UNSPECIFIED FORMULATI* 06/14/2019 [facility] INFLUENZA, UNSPECIFIED FORMULATI* 05/13/2011 [facility] PNEUMOCOCCAL CONJUGATE PCV 13 02/25/2017 [facility] <C> PNEUMOCOCCAL POLYSACCHARIDE PPV23 03/22/2019 [facility] <C> PNEUMOCOCCAL POLYSACCHARIDE PPV23 02/26/2014 [facility] <C> PNEUMOCOCCAL, UNSPECIFIED FORMUL* 02/26/2014 [facility] TDAP 11/17/2021 [facility] TDAP 05/13/2011 [place] <C> ZOSTER LIVE 02/26/2014 [place] <C> ZOSTER RECOMBINANT 2 01/21/2022 [facility] ZOSTER RECOMBINANT 1 11/17/2021 [facility] ZOSTER, UNSPECIFIED FORMULATION 01/21/2022 [facility] ZOSTER, UNSPECIFIED FORMULATION 11/17/2021 [facility] CONTRAINDICATED No data available REFUSED ======= No data available <C> See the Detailed Immunizations Health Summary Component[DIM] for Comments * Value is truncated; see the Detailed Immunizations Health Summary Component[DIM] for complete text Copy of PROVIDERS DISCHARGE ORDERS Discharge Order Discharge Date: Mar Discharged to: Home Discharge Type: Hospital Discharge Provider Completing Summary: Dr. Clinton Attending Physician: Dr. Quiñonez Discharge Diagnosis: Complicated Diverticulitis with abscess and colovesicular fistula Discharge Condition: Fair Discharge Instructions: Follow up with outpatient PCP regarding low potassium and medications that are held secondary to low potassium. Follow up with colorectal surgery next week regarding drain and possible surgery for your fistula. Discharge Order Weight Bearing Restriction: No, Bathing Restriction: Yes, Per colorectal surgery Activity Restriction: No, Diet: Full diet NSAID/Aspirin Restriction (MED/Date to Resume): None Wound Condition: Clean/Dry/Healing Oxygen Needed for Transport? No Special Transportation Needs: None /es/ Nou Her, rib cutter nurse, SICU Signed: 04/26/2024 12:44 ADENIKE RIVERA [facility] Apr 26, 2024 07:00 AM NURSING NOTE: LOCAL TITLE: TELEMETRY AND OXIMETRY CENTRALIZED NOTE STANDARD TITLE: NURSING NOTE DATE OF NOTE: APR 26, 2024@07:00 ENTRY DATE: APR 26, 2024@08:48 AUTHOR: VERONICA MINA EXP COSIGNER: URGENCY: STATUS: COMPLETED Telemetry (Cardiac) Monitor: DAY Shift Telemetry initiation date/time: Mar@12:17. Telemetry indication: critical care Cardiac History: diverticulitis, HTN Cardiac rhythm interpretation: SINUS SOCORRO W/1ST DEG AVB, BBB & PROLONGED QT HR:42 ME Int:0.288 QRS Int:0.122 QT Int:0.541 QTc Int:0.453 Telemetry leads monitored this shift: II and V lead Alarm parameters verified this shift Continuous Oximetry Montior: DAY Shift Continuous oximetry initiation date/time: Mar@12:17. Oximetry indication: aspiration risk Respiratory history: lung nodules, JUANJOSE Continuous oximetry readin-100% Alarm parameters verified this shift. Accuracy of oxygen reading verified by waveform and/or review. /alexi/ GEE ERICKSON [employer] Shampoo Assistant Signed: 04/26/2024 08:50 VERONICA MINA [facility] Apr 26, 2024 05:01 AM NURSING NOTE: LOCAL TITLE: TELEMETRY AND OXIMETRY CENTRALIZED NOTE STANDARD TITLE: NURSING NOTE DATE OF NOTE: APR 26, 2024@05:01 ENTRY DATE: APR 26, 2024@05:01:10 AUTHOR: CHOCO WOODARD EXP COSIGNER: URGENCY: STATUS: COMPLETED TELEMETRY AND OXIMETRY CENTRALIZED NOTE Has ADDENDA Telemetry (Cardiac) Monitor: Brand Lead Telemetry initiation date/time: Mar@12:17. Telemetry indication: critical care Cardiac History: diverticulitis, HTN Cardiac rhythm interpretation: Sinus Bradycardia w/ 1st deg AVB and BBB HR:46 ME Int:0.293 QRS Int:0.132 QT Int:0.536 QTc Int:0.469 Telemetry leads monitored this shift: II and V lead Alarm parameters verified this shift and set at: 40-130. Parameter set/change by prior shift. Continuous Oximetry Montior: Brand Lead Continuous oximetry initiation date/time: Mar@12:17. Oximetry indication: aspiration risk Respiratory history: lung nodules, JUANJOSE Continuous oximetry readin-98% Alarm parameters verified this shift and set at: 90-105. Accuracy of oxygen reading verified by waveform and/or review. /alexi/ CHOCO WOODARD [facility] Signed: 04/26/2024 05:05 04/26/2024 ADDENDUM STATUS: COMPLETED Cardiac History: diverticulitis, HTN, AAA, CAD s/p PCI with EVIE to proximal RCA & mid RCA, HFpEF, concern for 2nd degree AV block. /alexi/ CHOCO WOODARD [facility] Signed: 04/26/2024 05:09 CHOCO WOODARD [facility] Apr 26, 2024 03:46 AM NURSING INPATIENT NOTE: LOCAL TITLE: [facility] NURSING PROGRESS NOTE STANDARD TITLE: NURSING INPATIENT NOTE DATE OF NOTE: APR 26, 2024@03:46 ENTRY DATE: APR 26, 2024@03:46:30 AUTHOR: GERARD OVERTON EXP COSIGNER: URGENCY: STATUS: COMPLETED Nursing Shift Note Nursing care provided from [id number] Highlights from shift: A&O x4, calls appropriately, able to make needs known. Denies chest pain, SOB, headache, nausea, new numbness/tingling, dizziness vision changes. Endorses bladder spasm-related pain, managed with tylenol and pyridium. Tele in place reading SB with 1st degree block. VS within parameters, stable on room air. Mathew in place and patent, draining yellow and brown. JUAN in place and draining brown. Flushed with 20 cc total saline, ICCA reflects removal of flush volume from totals. Pt had several small, loose BMs throughout shift, stated they burned less as shift progressed. Pt asked to take 0900 meds at 0600, as that is usually when he takes morning meds at home. Expressed very minor chest tightness, managed with isosorbide, says it's baseline for him at this time in the morning. MOD paged to confirm OK and notify. Spironolactone NOT given prior to AM lab draws. R PIV patent and saline locked between K+ replacement and abx administrations. Pt was a little grumpy at the start of shift, but no behavioral concerns. No acute concerns overnight. See ICCA for detailed assessment, Education provided on medication/cares this shift as needed Skin Interventions performed this shift: Patient turned U3fwfib or as appropriate while in bed. Patient's heels elevated with pressure relief boots or pillows under calves. Patient kept clean and dry with barrier cream applied as ordered. Device(s) removed and skin underneath was inspected. Head of Bed kept below 30 degrees unless otherwise ordered. /alexi/ GERARD OVERTON RN Signed: 04/26/2024 06:09 GERARD OVERTON [facility] Apr 25, 2024 07:22 PM NURSING INPATIENT NOTE: LOCAL TITLE: [facility] NURSING PROGRESS NOTE STANDARD TITLE: NURSING INPATIENT NOTE DATE OF NOTE: APR 25, 2024@19:22 ENTRY DATE: APR 25, 2024@19:23:05 AUTHOR: OWEN GUERRERO EXP COSIGNER: URGENCY: STATUS: COMPLETED Nursing Shift Note Nursing care provided from Highlights from shift:Patient was mad in the beginning of the shift when he was talking with our crew manager re: his complained. Otherwise he had been cooperative with meds and treatment. Patient alert and oriented x3. VSS, afebrile. tele shows SB with first degree AVB, HR upper 40's-60's. C/o bladder pain rated 6-7/10. Tylenol 650mg po and pyridium tab given with some pain down to 4-5/10. Patient was up in the chair every meal. No further behavioral episode. Mathew patent with yellow to brown ouput. JUAN drain was flushed and had 70cc of brown output. Able to make his needs known. Call light within reach. See ICCA for detailed assessment, Education provided on medication/cares this shift as needed SKIN REINSPECTION/REASSESSMENT SKIN INSPECTION: Skin Color: Usual for ethnicity Skin Temperature: Warm Skin Moisture: Normal Skin Turgor: Elastic (normal/immediate) Neel Skin Assessment: The patient's Neel Scale Score is 20. The patient is considered not at risk for development of pressure ulcers/injuries. Sensory perception -- ability to respond meaningfully to pressure-related discomfort No impairment. Moisture -- degree to which skin is exposed to moisture Rarely moist. Activity -- ability to change and control body position Walks occasionally. Mobility -- ability to change and control body position No limitation. Nutrition -- usual food intake patterns Adequate. Friction and shear Potential problem. INTERVENTIONS: The pressure injury interventions were not needed - patient/resident is not at risk. RISK FACTORS THAT INCREASE RISK FOR DEVELOPING PRESSURE INJURIES: The patient/resident has the following: Device(s): (nasogastric tubes, oxygen tubing, urinary catheters, cell phone etc.) Comment: mathew, JUAN drain, cell phone Localized abnormality: Other: Location(s): JUAN drain site Skin Interventions performed this shift: Other: able to ambulated and repositioned /es/ OWEN GUERRERO RN STAFF NURSE Signed: 04/25/2024 19:50 OWEN GUERRERO [facility] Apr 25, 2024 03:29 PM NURSING NOTE: LOCAL TITLE: TELEMETRY AND OXIMETRY CENTRALIZED NOTE STANDARD TITLE: NURSING NOTE DATE OF NOTE: APR 25, 2024@15:29 ENTRY DATE: APR 25, 2024@18:14:42 AUTHOR: ANI CONN COSIGNER: URGENCY: STATUS: COMPLETED Telemetry (Cardiac) Monitor: Evening Shift Telemetry initiation date/time: Mar@12:17. Telemetry indication: critical care Cardiac History: diverticulitis, HTN Cardiac rhythm interpretation: junctional rhythm w/ BBB HR:47 ME Int:n/a QRS Int:.12 QT Int:.60 QTc Int:.53 Telemetry leads monitored this shift: II and V lead Alarm parameters verified this shift Continuous Oximetry Montior: Evening Shift Continuous oximetry initiation date/time: Mar@12:17. Oximetry indication: aspiration risk Respiratory history: lung nodules, JUANJOSE Continuous oximetry readin-97% Alarm parameters verified this shift. Accuracy of oxygen reading verified by waveform and/or review. /alexi/ ANI CONN TOOL REPAIR TECHNICIAN Signed: 04/25/2024 18:15 ANI CONN [facility] Apr 25, 2024 02:11 PM COLON & RECTAL SURGERY NOTE: LOCAL TITLE: COLON-RECTAL INPT PROGRESS NOTE STANDARD TITLE: COLON & RECTAL SURGERY NOTE DATE OF NOTE: APR 25, 2024@14:11 ENTRY DATE: APR 25, 2024@14:11:43 AUTHOR: JULIO RUSH EXP COSIGNER: URGENCY: STATUS: COMPLETED COLORECTAL BRIEF NOTE Patient now with IR drain with output and resolving leukocytosis with antibiotic regimen. Patient stable from a colorectal surgery standpoint for discharge home so long as he has an effective oral antibiotic regimen, drain teaching, and scheduled follow up (order placed for 05/02). Patient should discharge home with mathew given his existing fistula and monitor feculent output through mathew. Plans to discuss drain, utility of further scanning, and eventual operative options at outpt follow up. Colorectal surgery will sign off at this time. Please page with further questions or concerns. Julio Rush DO PGY2 General Surgery /alexi/ JULIO RUSH Resident - Surgery Signed: 04/25/2024 14:24 JULIO RUSH [facility] Apr 25, 2024 02:01 PM INTERNAL MEDICINE INPATIENT NOTE: LOCAL TITLE: MEDICINE INPT PROGRESS NOTE STANDARD TITLE: INTERNAL MEDICINE INPATIENT NOTE DATE OF NOTE: APR 25, 2024@14:01 ENTRY DATE: APR 25, 2024@14:01:13 AUTHOR: GERARD CLINTON EXP COSIGNER: URGENCY: STATUS: COMPLETED INPATIENT PROGRESS NOTE Subjective: Patient very upset this morning with his cares overnight. In particular he is frustrated with the fact that they flushed his JUAN drain and caused feces to come out of his mathew. States he is interested in contacting a program manager rn about his poor care here at the [facility]. Otherwise doing fairly well. Mentions a poor appetite and not being thirsty, but this is consistent with the last couple of weeks for him. Had bowel movement today, no blood in it. Denies chest pain, SOB, nausea, vomiting, fevers. Objective: GEN: Middle-age man sitting in a chair no distress. Irritated, combative at times. Calm this morning CV: S1-S2 RRR borderline bradycardic, no rubs/murmurs/gallops Lungs: Clear to auscultation bilaterally, no R/W/R ABD: Positive bowel sounds, minimal tenderness to palpation, no R/G. No distention Ext: No peripheral edema Drain intact, with clean dry dressing Active Medications: Active Inpatient Medications (including Supplies): Active Inpatient Medications Status 1) ACETAMINOPHEN (INPT) TAB 650MG PO Q4H PRN FOR PAIN: ACTIVE MAX DOSE of acetaminophen is 4000mg in 24 hours 2) ATORVASTATIN TAB 40MG PO QDAY ACTIVE 3) ISOSORBIDE MONONITRATE TAB,SA 30MG PO QDAY ACTIVE 4) PIPERACILLIN/TAZOBACTAM 3.375GM 50ML INJ in ACTIVE PIPERACIL/TAZOB 3.375GM PREMIX 50 ML INFUSE OVER 30 Minutes IVPB Q6H 5) POLYETHYLENE GLYCOL 3350 POWDER,ORAL 17 GM PKT PO ACTIVE QDAY PRN FOR CONSTIPATION. MIX IN JUICE OR WATER. 6) SALINE FLUSH INJ 10ML CATHETER Q8H Flush for ACTIVE catheter placed in radiology. 7) SALINE FLUSH INJ 10ML IV Q8H AFTER EACH USE, MINIMUM ACTIVE OF EVERY SHIFT. Pending Inpatient Medications Status 1) EMPAGLIFLOZIN TAB,ORAL 12.5MG PO QDAY PENDING 2) SPIRONOLACTONE TAB 12.5MG PO QDAY PENDING 9 Total Medications Labs: - INR: INR 1.2 H PLASMA (04/23/24 13:20) - Complete Blood Count White count: WBC 10.49 (04/24/24) Hemoglobin: HGB 12.1 L (04/24/24) Hematocrit: HCT 35.7 L (04/24/24) Platelets: PLT 282 (04/24/24) - Complete Metabolic Panel SODIUM 139 (04/25/24) POTASSIUM 2.9 L (04/25/24) CHLORIDE 101 (04/25/24) CO2 29 (04/25/24) UREA NITROGEN 14 (04/25/24) CREATININE 0.7 (04/25/24) GLUCOSE 127 H (04/25/24) CALCIUM 8.7 (04/25/24) MAGNESIUM 2.3 (04/25/24) EGFR (04/01) 07/10/2021@0641 74 CREATININE EGFR (CKD-EPI) 04/25/2024@0530 >90 AST/SGOT 28 (04/23/24) ALT/SGPT 19 (04/23/24) ALK PHOSPHATASE 68 (04/23/24) ALBUMIN 3.6 (04/23/24) BILIRUBIN, TOTAL 0.7 (04/23/24) Imaging Assessment/Plan: Impression: 73-year-old man admitted on April 23 with complicated diverticulitis with large abscess and colovesicular fistula #Complicated diverticulitis #Large abscess #[place]-vesicular fistula -IR guided drainage catheter placement yesterday, drain CDI, good brownish output. -Plan for discharge tomorrow -Continue pip-tazo for now, will switch to Augementin BID outpatient until clinic visit -Per surgery: Keep Mathew, Drain in place until outpt visit in one week that surgery will set up. At that time they will evaluate drain output and decide on imaging/surgery for the colovesicular fistula -Nursing to provide teaching regarding Mathew, Drain management - Drain to be flushed BID with 10ml Normal saline. Track output - Will need supplies including Leg bag, tubing, etc... Hypokalemia: Uncertain etiology -Given 60 mEq potassium this morning. (40mg IV + 60mg oral last night) -K+ 2.9, looking to correct further before possible d/c tmrw -BMP this afternoon, tmrw AM -Replete if potassium remains low HFpEF Echo this stay with EF 60-65%. 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 Or daily clopidogrel as that might be superior -- cont statin -- Cont isosorbide class 1 obesity obstructive sleep apnea emphysema - seen on CT for lung cancer screening -- last PFTs were normal. Might be retaining CO2. would limit oxygen to no more than 92% if he needs oxygen. on room air currently FEN -Returned to cardiac diet following IR procedure -Electrolytes addressed above Decision maker: Significant other's son Kirit Piña. . See admission staff note for further details. I have seen and discussed the patient with my attending, , who agrees with the above assessment plan. Additional Secondary Diagnoses /alexi/ GERARD CLINTON Signed: 04/25/2024 14:55 GERARD CLINTON [facility] Apr 25, 2024 07:24 AM NURSING NOTE: LOCAL TITLE: TELEMETRY AND OXIMETRY CENTRALIZED NOTE STANDARD TITLE: NURSING NOTE DATE OF NOTE: APR 25, 2024@07:24 ENTRY DATE: APR 25, 2024@13:53:41 AUTHOR: ANI CONN EXP COSIGNER: URGENCY: STATUS: COMPLETED Telemetry (Cardiac) Monitor: Day Shift Telemetry initiation date/time: Mar@12:17. Telemetry indication: critical care Cardiac History: diverticulitis, HTN Cardiac rhythm interpretation: junctional rhythm w/ BBB HR:50 ME Int:n/a QRS Int:.12 QT Int:.55 QTc Int:.50 Telemetry leads monitored this shift: II and V lead Alarm parameters verified this shift Continuous Oximetry Montior: Day Shift Continuous oximetry initiation date/time: Mar@12:17. Oximetry indication: aspiration risk Respiratory history: lung nodules, JUANJOSE Continuous oximetry readin-98% Alarm parameters verified this shift. Accuracy of oxygen reading verified by waveform and/or review. /alexi/ ANI CONN TOOL REPAIR TECHNICIAN Signed: 04/25/2024 13:54 ANI CONN [facility] Apr 25, 2024 01:25 AM NURSING INPATIENT NOTE: LOCAL TITLE: [facility] NURSING PROGRESS NOTE STANDARD TITLE: NURSING INPATIENT NOTE DATE OF NOTE: APR 25, 2024@01:25 ENTRY DATE: APR 25, 2024@01:26:02 AUTHOR: ALFRED REYNA COSIGNER: URGENCY: STATUS: COMPLETED Nursing Shift Note Nursing care provided from [id number] Highlights from shift:A&Ox4,afebrile,CX517t -150s/60s-70s,HR44-56,O294- 98% (RA),RR 18.Heart sounds abnormal,lungs-UL clear,LL decreased. Mathew in place. JUAN drain in place, dressing CDI:output-10ml dark christianson~brown.Upon initial examination bulb cap was open. Applied pressure,closed cap & taped down to reinforce. When return for next vital check cap had opened again. Flushed, stripped & drained bulb. Applied pressure & closed cap again, this time reinforced with multiple pieces of tape. Patient was very angry about care receiving at beginnig of shift & discovery of bulb unclamped. Attempted to address needs I could & redirect. During 2nd vital check discovered patient sitting up in chair & increasingly angry. Asked if I had seen his mathew bag & that it had shit in it. Did not want machine sign writer to dump bag so that he could show provider. Made several comments about care previous RN provided & appeared to believe she had fucked up his drain. Patient made comments that hospital/care being handled poorly & calling a program manager rn by end of the day. Patient stated he did not want to see previous shift RN again & wanted competent nurse. Informed patient I would make sure he had senior RN for next shift-patient stated I always should have a senior nurse. 9 beats of V-socorro @ ~01:45m,patient sleeping. NF1 informed, no further orders at this time. Able to make needs known, call light within reach. See ICCA for detailed assessment, Education provided on medication/cares this shift as needed Skin Interventions performed this shift: Patient kept clean and dry with barrier cream applied as ordered. Device(s) removed and skin underneath was inspected. Head of Bed kept below 30 degrees unless otherwise ordered. /jerome REYNA,NEONATOLOGIST NURSE, CR[facility] 3K Signed: 04/25/2024 07:41 ALFRED REYNA [facility] Apr 24, 2024 11:10 PM NURSING NOTE: LOCAL TITLE: TELEMETRY AND OXIMETRY CENTRALIZED NOTE STANDARD TITLE: NURSING NOTE DATE OF NOTE: APR 24, 2024@23:10 ENTRY DATE: APR 25, 2024@00:52:51 AUTHOR: NORMA JORDAN EXP COSIGNER: URGENCY: STATUS: COMPLETED TELEMETRY AND OXIMETRY CENTRALIZED NOTE Has ADDENDA Telemetry (Cardiac) Monitor: Brand Lead Telemetry initiation date/time: Mar@12:17. Telemetry indication: Critical care Cardiac History: HTN, AAA, CAD w/stent x2 Cardiac rhythm interpretation: Sinus bradycardia w/1st degree AVB, BBB & PVC HR:48 ME Int:.243 QRS Int:.12 QT Int:.503 QTc Int:.449 Telemetry leads monitored this shift: II and V lead Alarm parameters verified this shift Continuous Oximetry Montior: Brand Lead Continuous oximetry initiation date/time: Mar@12:17. Oximetry indication: Aspiration risk Respiratory history: JUANJOSE, Lung nodules Continuous oximetry readin-98 Alarm parameters verified this shift. Accuracy of oxygen reading verified by waveform and/or review. /jerome JORDAN [facility] Signed: 04/25/2024 00:56 04/25/2024 ADDENDUM STATUS: COMPLETED Notified nurse Rand Keith patient had 9 Idioventricular beats at 0146. /jerome JORDAN [facility] Signed: 04/25/2024 04:44 NORMA JORDAN [facility] Apr 24, 2024 07:23 PM NURSING INPATIENT NOTE: LOCAL TITLE: [facility] NURSING PROGRESS NOTE STANDARD TITLE: NURSING INPATIENT NOTE DATE OF NOTE: APR 24, 2024@19:23 ENTRY DATE: APR 24, 2024@19:23:30 AUTHOR: JOSE MILLARD EXP COSIGNER: URGENCY: STATUS: COMPLETED [facility] NURSING PROGRESS NOTE Has ADDENDA Nursing Shift Note Nursing care provided from [id number] Highlights from shift: Afebrile, A&OX4, return to the unit around 1615. Pt irritable at times and argumentative. Pt was told to do bed rest for 4 hours till 8pm. Pt ignored RN and stood up and put on PJs. Pt dangled at the edge of the bed and ate dinner. SB. VSS on RA. Potassium replacement given. Mathew draining christianson-colored urine with sediments in it. JUAN drain to the left groin/LLQ, 5ml of brown output. See ICCA for detailed assessment, Education provided on medication/cares this shift as needed SKIN REINSPECTION/REASSESSMENT SKIN INSPECTION: Skin Color: Usual for ethnicity Skin Temperature: Warm Skin Moisture: Dry Skin Turgor: Non-Elastic INTERVENTIONS: No change in previous interventions as listed below 04/24/2024 Vaaes Pressure Injury Int Not Needed RISK FACTORS THAT INCREASE RISK FOR DEVELOPING PRESSURE INJURIES: The patient/resident has the following: Known vascular surgery or vascular disease Skin Interventions performed this shift: Head of Bed kept below 30 degrees unless otherwise ordered. /jerome MILLARD RN RN Signed: 04/25/2024 00:10 04/25/2024 ADDENDUM STATUS: COMPLETED Pt tolerated potassium infusion, LR infusion did not run. /jerome MILLARD RN RN Signed: 04/25/2024 00:12 JOSE MILLARD [facility] Apr 24, 2024 03:59 PM PROCEDURE NOTE: LOCAL TITLE: MODERATE SEDATION POST-SEDATION NOTE STANDARD TITLE: PROCEDURE NOTE DATE OF NOTE: APR 24, 2024@15:59 ENTRY DATE: APR 24, 2024@15:59:43 AUTHOR: TALIB NUÑEZ EXP COSIGNER: URGENCY: STATUS: COMPLETED MODERATE SEDATION MEDICATIONS given during procedure: Fentanyl: 100mcg Midazolam: 2mg POST SEDATION ASSESSMENT AND RELEASE CRITERIA: VA-PAS criteria for release met at Time: 1545 VA-PAS Score: 14 VITAL SIGNS: Time Vitals were taken: 1545 Pulse: 59 Respirations: 14 Blood Pressure: 147/71 Pain Score: 0 O2 Sat: 95 All personnel present during procedure including vendors: Napoleon RTAnup RN, Mundo fraser RELEASED TO: Crocker Verbal RN to RN report given including delirium risk: Yes IV Access: Continued Patient and/or family given opportunity to ask questions and have questions answered. Patient and/or family stated understanding of post procedure instructions. Events Reporting: No adverse events were noted during the procedure. /alexi/ TALIB NUÑEZ RN Registered Nurse Signed: 04/24/2024 16:01 TALIB NUÑEZ [facility] Apr 24, 2024 03:57 PM INTERVENTIONAL RADIOLOGY PROCEDURE NOTE: LOCAL TITLE: INTERVENTIONAL RADIOLOGY PHYSICIAN PROCEDURE NOTE STANDARD TITLE: INTERVENTIONAL RADIOLOGY PROCEDURE NOTE DATE OF NOTE: APR 24, 2024@15:57 ENTRY DATE: APR 24, 2024@15:57:17 AUTHOR: LUCAS FLOWER EXP COSIGNER: URGENCY: STATUS: COMPLETED Procedure Note Procedure: LLQ abscess drain placement Patient was identified by using full name and social security number. Procedure(s) to be performed was(were) discussed with patient and verified to be correct. Patient and/or family provided with appropriate education and patient and/or family acknowledged understanding. Procedure Date: Mar Attending physician performing the procedure: Sadia Dee Resident present:Lucas Flower Pre-Procedure diagnosis:diverticular abscess Post-Procedure diagnosis: Same as pre-op diagnosis Specimens Obtained: No specimen obtained Estimated blood loss: <25ml No immediate complications /alexi/ LUCAS FLOWER MD SECURITY INCIDENT HANDLER Signed: 04/24/2024 15:58 LUCAS FLOWER [facility] Apr 24, 2024 03:52 PM NURSING NOTE: LOCAL TITLE: TELEMETRY AND OXIMETRY CENTRALIZED NOTE STANDARD TITLE: NURSING NOTE DATE OF NOTE: APR 24, 2024@15:52 ENTRY DATE: APR 24, 2024@17:43:33 AUTHOR: ANI CONN EXP COSIGNER: URGENCY: STATUS: COMPLETED Telemetry (Cardiac) Monitor: Evening Shift Telemetry initiation date/time: Mar@12:17. Telemetry indication: critical care Cardiac History: diverticulitis, HTN Cardiac rhythm interpretation: junctional rhythm w/ BBB HR:46 ME Int:n/a QRS Int:.14 QT Int:.60 QTc Int:.55 Telemetry leads monitored this shift: II and V lead Alarm parameters verified this shift Significant cardiac events noted this shift (procedures, cardiac drips, ectopy, chest pain, changes in rhythm, etc): Pt goes in/out of 2 AVB Type 1, HR drops to mid 40's. Continuous Oximetry Montior: Evening Shift Continuous oximetry initiation date/time: Mar@12:17. Oximetry indication: aspiration risk Respiratory history: lung nodules, JUANJOSE Continuous oximetry readin-99% Alarm parameters verified this shift. Accuracy of oxygen reading verified by waveform and/or review. /alexi/ ANI CONN TOOL REPAIR TECHNICIAN Signed: 04/24/2024 17:44 ANI CONN [facility] Apr 24, 2024 02:50 PM PROCEDURE NOTE: LOCAL TITLE: MODERATE SEDATION PRE-SEDATION NOTE STANDARD TITLE: PROCEDURE NOTE DATE OF NOTE: APR 24, 2024@14:50 ENTRY DATE: APR 24, 2024@14:50:26 AUTHOR: TALIB NUÑEZ EXP COSIGNER: URGENCY: STATUS: COMPLETED MODERATE SEDATION RN Pre-Sedation Assessment or Dental Resident: Patient identification verified. Indicate time and nature of last oral intake (should be NPO for at least 2 hours except in an emergency) Liquids: 8 hours ago, clear (2-4 hours) Solids: 8 hours ago, meal (6 hours) Care plan - monitor for procedural or sedation related events. Active Inpatient Medications (including Supplies): Active Inpatient Medications Status 1) ACETAMINOPHEN (INPT) TAB 650MG PO Q4H PRN FOR PAIN: ACTIVE MAX DOSE of acetaminophen is 4000mg in 24 hours 2) ATORVASTATIN TAB 40MG PO QDAY ACTIVE 3) ISOSORBIDE MONONITRATE TAB,SA 30MG PO QDAY ACTIVE 4) LACTATED RINGERS INJ,SOLN in LACTATED RINGERS 1000 ACTIVE ML 75 ml/hr@0 IV limit = 24 hours IV 5) PIPERACILLIN/TAZOBACTAM 3.375GM 50ML INJ in ACTIVE PIPERACIL/TAZOB 3.375GM PREMIX 50 ML INFUSE OVER 30 Minutes IVPB Q6H 6) POLYETHYLENE GLYCOL 3350 POWDER,ORAL 17 GM PKT PO ACTIVE QDAY PRN FOR CONSTIPATION. MIX IN JUICE OR WATER. 7) SALINE FLUSH INJ 10ML IV Q8H AFTER EACH USE, MINIMUM ACTIVE OF EVERY SHIFT. Medications reviewed with the patient: no changes LAB results reviewed as applicable. PT 14.5 H (04/23/24) INR 1.2 H PLASMA (04/23/24 13:20) HGB 12.1 L (04/24/24) PLT 282 (04/24/24) SODIUM 138 (04/24/24) POTASSIUM 2.3 L* (04/24/24) CREATININE 0.7 (04/24/24) UREA NITROGEN 16 (04/24/24) ALLERGIES/ADR: TERAZOSIN (Mar 13, 2015) Mode of transport: Litter Pre-procedure education reviewed. Written instructions given to patient. Patient and/or family given opportunity to ask questions and state understanding of procedure. PRE-SEDATION VITAL SIGNS: Temperature: 99.6 F [37.6 C] (04/21/2024 07:35) Pulse: 61 (04/21/2024 07:35) Respirations: 16 (04/21/2024 07:35) Blood Pressure: 125/59 (04/21/2024 07:35) O2 Sat: PULSE OXIMETRY (MOST RECENT IN LAST YEAR): 96 (APR 21, 2024@07:35) Pain: 0 (04/24/2024 12:15) LEVEL OF CONSCIOUSNESS (LOC): 2-Fully awake. REVIEW OF SYSTEMS: Status: Inpatient Pulmonary: Within normal limits Cardiovascular: Within normal limits Renal: Within normal limits Hepatic/Gastrointestinal: Within normal limits Endocrine: Within normal limits Neurology/Psych: Within normal limits Risk factors for post-sedation delirium: None Tobacco Use: No Alcohol Use: No Substance Use: Yes marijuana /es/ TALIB NUÑEZ RN Registered Nurse Signed: 04/24/2024 14:51 TALIB NUÑEZ [facility] Apr 24, 2024 02:39 PM CONSENT: LOCAL TITLE: CONSENT CLINICAL IMED STANDARD TITLE: CONSENT DATE OF NOTE: APR 24, 2024@14:39:12 ENTRY DATE: APR 24, 2024@14:39:37 AUTHOR: CHANEL HEREDIA EXP COSIGNER: URGENCY: STATUS: COMPLETED VistA Imaging - Scanned Document Signature Informed Consent for Abscess-Unspecified Exchange and/or Drainage Tube Placement (Unspecified Exchange and/or Drainage Tube Placement) 1. Anatomical Location: Peritoneal abscess 2. Informed consent was obtained at 1:59 PM on 04/24/24. The full consent document can be accessed through [employer]. 3. Patient name: FLACA ROY 4. The patient HAS decision-making capacity. 5. Surrogate (if applicable): 6. Reason for the treatment (diagnosis, condition, or indication): Abscess or collection of pus. 7. Treatment/procedure: This procedure involves the insertion of a needle through the skin into the abscess cavity followed by insertion of a tube to allow drainage. This procedure is done with CT (an imaging technique), x-rays or ultrasound guidance. X-rays of the abscess are taken and specimens from the abscess may be sent to the laboratory for examination. (Unspecified Exchange and/or Drainage Tube Placement) 8. Moderate sedation will be used. Medications will be administered to decrease anxiety and discomfort during the treatment/procedure. These medications will be administered by a qualified practitioner. Patient response to some of these medications varies. Patients are expected to remain aware and responsive during the treatment or procedure. Minor risks of moderate sedation include temporary amnesia or forgetfulness and drowsiness. Moderate sedation can interfere with your ability to drive, operate machinery, or make important decisions for up to 24 hours. Medications used for moderate sedation can cause allergic reactions, respiratory depression (this is when your breathing slows down and may stop), low blood pressure, and a slow or irregular heart beat. In rare instances these complications can cause . Tell your health care team if you do not want to receive moderate sedation. 9. Consent to Blood Products (if applicable): It is not expected that blood products will be used in this treatment/procedure. 10. Practitioner obtaining consent: Lucas Flower MD 11. Supervising practitioner: Sadia Dee MD 12. Practitioner(s) performing or supervising treatment/procedure (if not listed above): 13. Witness Name(s): 14. Comments: SCANNED DOCUMENT SIGNATURE NOT REQUIRED Electronically Filed: 04/24/2024 by: CHANEL LOOMIS [facility] Apr 24, 2024 02:37 PM NURSING NOTE: LOCAL TITLE: [facility] IV INSERTION AND MAINTENANCE STANDARD TITLE: NURSING NOTE DATE OF NOTE: APR 24, 2024@14:37 ENTRY DATE: APR 24, 2024@14:37:31 AUTHOR: DODIE SOOD EXP COSIGNER: URGENCY: STATUS: COMPLETED Version 2.2 Charting in accordance with [place] APPROVED [place] STANDARD ([employer]) ACUTE INPATIENT/REHABILITATION NURSING ADMISSION SCREENING, ASSESSMENT, AND STANDARDS OF CARE IV Line Insertion and Maintenance Peripheral IV Line #1: Insertion: Date/Time: Mar@12:10 Inserted by (name): BMP Location: Right, Forearm Gauge: /alexi/ DODIE SOOD LPN LICENSED PRACTICAL NURSE Signed: 04/24/2024 14:38 DODIE SOOD [facility] Apr 24, 2024 02:14 PM INTERVENTIONAL RADIOLOGY NURSING NOTE: LOCAL TITLE: INTERVENTIONAL RADIOLOGY NURSING PROCEDURE NOTE STANDARD TITLE: INTERVENTIONAL RADIOLOGY NURSING NOTE DATE OF NOTE: APR 24, 2024@14:14 ENTRY DATE: APR 24, 2024@14:14:07 AUTHOR: TALIB NUÑEZ EXP COSIGNER: URGENCY: STATUS: COMPLETED Procedure: abcess drain Patient was identified by using full name and social security number. Procedure(s) to be performed was(were) discussed with patient and verified to be correct. Patient and/or family provided with appropriate education and patient and/or family acknowledged understanding. Site Marking: Site marked (as indicated by policy) A time out was taken prior to the procedure to verify correct patient correct procedure and correct site. Physician present during time out: Dr. Sadia Dee Written informed consent obtained from the patient or surrogate, using the [place] approved form and process. Informed Consent Progress Note containing risks, benefits and alternatives documented. If applicable, imaging data were verified and confirmed. Patient positioning was verified prior to procedure if relevant. (supine, lateral) All necessary special equipment including implants were verified prior to procedure. Procedure Date and Start Time: Mar Time Procedure completed: Mar Medications: Sedation Start time: 1524 Sedation End time: 1539 Code status/LST: Full Code ABCESS/DRAIN Patient arrived to IR holding room alert, oriented and aware of procedure to be performed. Written informed consent obtained by MD Dee for abscess/drain placement. Risk vs Benefits discussed; all questions answered. Patient states they understand and wish to proceed today. Site was marked by MD. Patient transferred to CT and connected to monitor. Patient positioned supine per MD. abdomen prepped and draped using sterile technique. MD arrival, Timeout performed. MD injected 1% lidocaine to abdomen. Drain placed/fluid removed from drain,loody/christianson purulent fluid removed. 8 Fr tube attached to JUAN/gravity drainage bag. Catheter/ Drain removed, and site dressed with tegaderm dressing; remains clean, dry, and intact upon leaving IR. Patient tolerated the procedure, vital signs stable throughout, no immediate complications noted. Medication: Midazolam Dose: 1mg/1mL Route: IVP Time: 1525 Site: LEft FA Medication: Midazolam Dose: 0.5mg/0.5mL Route: IVP Time: 1529, 0 Site: Left PIV Medication: Fentanyl Dose: 50mcg/1mL Route: IVP Time: 1524, 5 Site: Left FA Post-procedure Vital Signs BP: 147/71 HR: 59 02: 95 SBAR report given to 3K RN, please see MD orders. Please reference Interventional MD imaging report/procedure note for further details and findings. /alexi/ TALIB NUÑEZ RN Registered Nurse Signed: 04/24/2024 15:52 TALIB NUÑEZ [facility] Apr 24, 2024 12:18 PM INTERNAL MEDICINE INPATIENT NOTE: LOCAL TITLE: MEDICINE INPT PROGRESS NOTE STANDARD TITLE: INTERNAL MEDICINE INPATIENT NOTE DATE OF NOTE: APR 24, 2024@12:18 ENTRY DATE: APR 24, 2024@12:18:41 AUTHOR: DODIE QUIÑONEZ EXP COSIGNER: URGENCY: STATUS: COMPLETED No major events overnight. Bit upset this morning about the beeps from his IV pump, the perceived uncleanliness of some dust on the ceiling, and overall frustration at feeling uninformed about the clinical plan. No fever/chills. No nausea/vomiting, though he has been n.p.o. since midnight. No chest pain/shortness of breath. Passed a bowel movement this morning, no blood. Abdominal discomfort has improved since admission. The Mathew catheter is uncomfortable. Exam Vitals: T90.1, HR 55, P139/67 RR 18 O2 sat 94% on room air GEN: Middle-age man sitting in a chair no distress. Irritated, combative at times. Calm down during my interview. CV: S1-S2 RRR borderline bradycardic, no rubs/murmurs/gallops Lungs: Clear to auscultation bilaterally, no R/W/R ABD: Positive bowel sounds, minimal tenderness to palpation, no R/G. No distention Ext: No peripheral edema Labs -WBC 10.5, Hgb 12.1, PLT 282 -Sodium 138, potassium 2.3 (potassium was 2.6 yesterday), chloride 98, bicarb 29 -BUN 16, creatinine 0.7 No new imaging Imp: 73-year-old man admitted on April 23 with complicated diverticulitis with large abscess and colovesicular fistula complicated diverticulitis large abscess colo-vesicular fistula -IR guided drainage catheter placement today -Continue pip-tazo for now Hypokalemia: Uncertain etiology -Given 60 mEq potassium this morning -BMP this afternoon -Replete if potassium remains low -Labs in the morning mobitz I AV block (Wenckebach) heart block -- avoid AV sapna blocking agents -- no need for pacemaker now -- cardiology has evaluated patient and no need to delay surgery for this heart block h/o CAD - would eventually place patient on daily aspirin since he has had coronary stents. Or daily clopidogrel as that might be superior -- cont statin class 1 obesity obstructive sleep apnea emphysema - seen on CT for lung cancer screening -- last PFTs were normal. Might be retaining CO2. would limit oxygen to no more than 92% if he needs oxygen. on room air currently FEN -On IV fluid while n.p.o -Electrolytes addressed above -Will resume cardiac diet after he returns from IR Decision maker: Significant other's son Kirit Piña. . See admission staff note for further details /es/ DODIE QUIÑONEZ MD STAFF PHYSICIAN - HOSPITALIST Signed: 04/24/2024 12:37 DODIE QUIÑONEZ [facility] Apr 24, 2024 10:40 AM NURSING INPATIENT NOTE: LOCAL TITLE: [facility] NURSING PROGRESS NOTE STANDARD TITLE: NURSING INPATIENT NOTE DATE OF NOTE: APR 24, 2024@10:40 ENTRY DATE: APR 24, 2024@10:40:17 AUTHOR: EMERITA ZAMORANO EXP COSIGNER: URGENCY: STATUS: COMPLETED Nursing Shift Note Nursing care provided from [phone] Highlights from shift: A&O x4, independent with transfers, telemetry - junctional rhythm, room air, NPO, VSS. Mathew catheter in place; 250ml of cloudy urine. Pt. denied SOB, N/V, dizziness; pt.reported abdominal discomfort rated 4/10; PRN Tylenol administered with effectiveness. ECHO this AM. Critical value of potassium 2.3; provider notified; PO potassium administered with a sip of water. Continuous LR infusing at 75ml/hr till 1400, R. AC PIV. BM this tour; no blood reported by pt. Pt. angry and agitated at noon, reporting inability to sleep at night due to noise, inability to sleep due to IV beeping and not knowing when he would go for a procedure; provider notified; IV team called to place a new IV per pt. request; pt. calm and cooperative with cares after. Pt. left to IR at 1400 via litter. Bed linens changed. See ICCA for detailed assessment SKIN REINSPECTION/REASSESSMENT SKIN INSPECTION: Skin Color: Usual for ethnicity Skin Temperature: Warm Skin Moisture: Normal Skin Turgor: Elastic (normal/immediate) Neel Skin Assessment: The patient's Neel Scale Score is 20. The patient is considered not at risk for development of pressure ulcers/injuries. Sensory perception -- ability to respond meaningfully to pressure-related discomfort Slightly limited. Moisture -- degree to which skin is exposed to moisture Rarely moist. Activity -- ability to change and control body position Walks frequently. Mobility -- ability to change and control body position No limitation. Nutrition -- usual food intake patterns Probably inadequate. Friction and shear No apparent problem. INTERVENTIONS: The pressure injury interventions were not needed - patient/resident is not at risk. RISK FACTORS THAT INCREASE RISK FOR DEVELOPING PRESSURE INJURIES: The patient/resident has the following: Device(s): (nasogastric tubes, oxygen tubing, urinary catheters, cell phone etc.) Comment: mathew catheter Potential compromised nutritional status SKIN INTEGRITY: Intact Skin Interventions performed this shift: Patient's heels elevated with pressure relief boots or pillows under calves. Head of Bed kept below 30 degrees unless otherwise ordered. /alexi/ EMERITA ZAMORANO RN Signed: 04/24/2024 15:16 [facility] Apr 24, 2024 08:32 AM COMMUNICATION NOTE: LOCAL TITLE: CRITICAL LAB NOTIFICATION STANDARD TITLE: COMMUNICATION NOTE DATE OF NOTE: APR 24, 2024@08:32 ENTRY DATE: APR 24, 2024@08:33:06 AUTHOR: EMERITA ZAMORANO EXP COSIGNER: URGENCY: STATUS: COMPLETED CRITICAL LAB VALUE Received a call from Lab at Mar@08:30 Critical Lab Value: Potassium 2.3 Provider Gerard Clinton was notified at 0833 of abnormal lab value. FOLLOW-UP ACTION: The following action was taken to alleviate the abnormal value. potassium replacement ordered by provider /alexi/ EMERITA ZAMORANO RN Signed: 04/24/2024 09:01 MARISAEMERITA [facility] Apr 24, 2024 07:52 AM NURSING NOTE: LOCAL TITLE: TELEMETRY AND OXIMETRY CENTRALIZED NOTE STANDARD TITLE: NURSING NOTE DATE OF NOTE: APR 24, 2024@07:52 ENTRY DATE: APR 24, 2024@12:21:36 AUTHOR: ANI CONN EXP COSIGNER: URGENCY: STATUS: COMPLETED Telemetry (Cardiac) Monitor: Day Shift Telemetry initiation date/time: Mar@12:17. Telemetry indication: critical care Cardiac History: diverticulitis, HTN Cardiac rhythm interpretation: junctional rhythm w/ BBB HR:45 ME Int:n/a QRS Int:.16 QT Int:.61 QTc Int:.53 Telemetry leads monitored this shift: II and V lead Alarm parameters verified this shift Significant cardiac events noted this shift (procedures, cardiac drips, ectopy, chest pain, changes in rhythm, etc): Pt goes in/out of 2 AVB Type 1, HR drops to mid 40's. Continuous Oximetry Montior: Day Shift Continuous oximetry initiation date/time: Mar@12:17. Oximetry indication: aspiration risk Respiratory history: lung nodules, JUANJOSE Continuous oximetry readin-98% Alarm parameters verified this shift. Accuracy of oxygen reading verified by waveform and/or review. /alexi/ ANI CONN TOOL REPAIR TECHNICIAN Signed: 04/24/2024 12:22 ANI CONN [facility] Apr 24, 2024 01:48 AM NURSING INPATIENT NOTE: LOCAL TITLE: [facility] NURSING PROGRESS NOTE STANDARD TITLE: NURSING INPATIENT NOTE DATE OF NOTE: APR 24, 2024@01:48 ENTRY DATE: APR 24, 2024@01:48:27 AUTHOR: CAROLANN GILL EXP COSIGNER: URGENCY: STATUS: COMPLETED Nursing Shift Note Nursing care provided from [phone] Highlights from shift: alert and oriented x4, call light within reach and able to make needs known. Denies pain and nausea. Has mathew catheter. Continues to have LR infusing at 75 ml/hr for 24 hour period. Patient has been NPO since midnight for drain placement. Patient continues to get zosyn q 6hours. Telemetry - sinus socorro, heart rate mid to low 40's - experienced 4 beat run of Marisela hall, machine sign writer updated MOD. Skin intact. Patient later developed pain to abdominal region, request and received tylenol at 0333t, about 4 hours after last dose. See ICCA for detailed assessment SKIN REINSPECTION/REASSESSMENT SKIN INSPECTION: Skin Color: Usual for ethnicity Skin Temperature: Warm Skin Moisture: Normal Skin Turgor: Elastic (normal/immediate) INTERVENTIONS: No change in previous interventions as listed below 04/23/2024 Vaaes Pressure Injury Int Not Needed RISK FACTORS THAT INCREASE RISK FOR DEVELOPING PRESSURE INJURIES The patient/resident does not have any additional risk factors. SKIN INTEGRITY: Intact Skin Interventions performed this shift: Patient turned [id number] or as appropriate while in bed. Patient's heels elevated with pressure relief boots or pillows under calves. /alexi/ Carolann Gill Carolann Gill Signed: 04/24/2024 06:53 CAROLANN GILL [facility] Apr 23, 2024 11:15 PM NURSING NOTE: LOCAL TITLE: TELEMETRY AND OXIMETRY CENTRALIZED NOTE STANDARD TITLE: NURSING NOTE DATE OF NOTE: APR 23, 2024@23:15 ENTRY DATE: APR 24, 2024@01:35:40 AUTHOR: NORMA JORDAN EXP COSIGNER: URGENCY: STATUS: COMPLETED Telemetry (Cardiac) Monitor: Brand Lead Telemetry initiation date/time: Mar@12:17. Telemetry indication: Critical care Cardiac History: HTN, AAA, CAD w/stent x2 Cardiac rhythm interpretation: Junction rhythm w/BBB & prolonged QT HR:46 ME Int: QRS Int:.171 QT Int:.543 QTc Int:.476 Telemetry leads monitored this shift: II and V lead Alarm parameters verified this shift Additional comments: Notified nurse Valentine patient convert from SB to junctional rhythm at 2046. Nurse Apoorva was notified of 4 beat Vbrady at 0015, provided copy of full disclosure. Continuous Oximetry Montior: Brand Lead Continuous oximetry initiation date/time: Mar@12:17. Oximetry indication: Aspiration risk Respiratory history: JUANJOSE, Lung nodules Continuous oximetry readin-97 Alarm parameters verified this shift. Accuracy of oxygen reading verified by waveform and/or review. /alexi/ NORMA JORDAN [facility] Signed: 04/24/2024 01:40 NORMA JORDAN [facility] Apr 23, 2024 06:40 PM NURSING INPATIENT NOTE: LOCAL TITLE: [facility] NURSING PROGRESS NOTE STANDARD TITLE: NURSING INPATIENT NOTE DATE OF NOTE: APR 23, 2024@18:40 ENTRY DATE: APR 23, 2024@18:40:47 AUTHOR: ROXANN GONZALEZ EXP COSIGNER: URGENCY: STATUS: COMPLETED [facility] NURSING PROGRESS NOTE Has ADDENDA Nursing Shift Note Pt cared for from: [id number] Admitting DX: DIVERTICULITIS ABSC W/FIST Allergies: TERAZOSIN (Mar 13, 2015) Age: 73 Branch: [place] Code Status: Full Code Contact precaution: Current Diet: CL LIQ SLT - Potassium Collection DT Specimen Test Name Result Units Ref Range 04/23/2024 13:20 PLASMA POTASSIUM 2.6 L mmol/L 3.5 - 5.1 05/06/2023 08:21 PLASMA POTASSIUM 3.9 mmol/L 3.5 - 5.1 09/01/2022 11:40 PLASMA POTASSIUM 3.7 mmol/L 3.5 - 5.1 MAGNESIUM 2.5 (04/23/24) CREATININE 0.7 (04/23/24) WBC 12.50 H (04/23/24) HGB 13.0 L (04/23/24) - Neuro: *A/O x4, Equal strength bilaterally, CSMs x4, follows complex commands. Calm cooperative, makes needs known. Cardio: *S1/S2,Denies SOB/CP. Pulses x4 extremities. [employer] PRINCIPAL < 3 seconds *Track Machine Operator Repairer shows 1st degreee AVB w/BBB Pulm: *Lungs Clear throughout w/o adventitious sounds. Denies SOB/[place]. POX>90% RA. GI/: *BS x4, denies ABD PAIN/TND, N/V/D, LBM: 04/23 *Mathew placed this shift w/o difficulty, 16FR. Musculoskeletal: *BUE strength rated 5/5 ; BLE strength rated 5/5 Pain: *Denies Pain Gtts: *LR @ 75mL/hr continous Access: *PIV RAC 20g Infusing Activity: *Vet IND with ambulation w/o device; Vet IND with ADLs - *Please see ICIP for further detailed assessments and BCMA for medication Administrations *Education provided on medication/cares this shift as needed* - /jerome GONZALEZ RN REGISTERED NURSE, BSN Signed: 04/23/2024 19:25 04/23/2024 ADDENDUM STATUS: COMPLETED Cared for pt from [id number]. HR 50's, secured entrance monitor varies between 1st degree AVB/BBB/junct. BP 145/76. Sats 97% on RA. LR infusing at 75cc/hour, receiving IV abx. On clear liquid diet, NPO after midnight for peritoneal drain placement, pt verbalized understanding of NPO status. Cpap ordered for pt, pt states he does not wear one at home, offered to have RT set up loaner machine but pt refusing. Given tylenol x1. Mathew patent for beige/cream colored output. Pt having to stand at times for mathew to drain, mathew flushed easily, no blood or clots noted. /alexi/ VALENTINE GALLAGHER RN MOLDING ENGINEER Signed: 04/23/2024 22:26 ROXANN GONZALEZ [facility] Apr 23, 2024 06:23 PM COLON & RECTAL SURGERY CONSULT: LOCAL TITLE: PROCTO/COLORECTAL CONSULT STANDARD TITLE: COLON & RECTAL SURGERY CONSULT DATE OF NOTE: APR 23, 2024@18:23 ENTRY DATE: APR 23, 2024@18:23:28 AUTHOR: LOGAN SOOD COSIGNER: URGENCY: STATUS: COMPLETED Date of Last Admission: 04/23/2024 (Future) 3K Admitting Dx: DIVERTICULITIS Provider: COLT RUCKER Admission Diagnosis: DIVERTICULITIS ABSC W/FIST CHIEF COMPLAINT: abdominal pain, constipation, urinary symptoms HISTORY OF PRESENT ILLNESS: 73 year old WHITE MALE with PMHx multiple episodes of diverticulitis over the past 8 years, HTN, JUANJOSE, CAD, AAA who presents as a transfer from [place] for an episode of diverticulitis. The patient reports 1 week of abdominal pain, constipation, dysuria, urinary hesitance and retention as well as urinary frequency, with cloudy and bloody urine. He has had episodes of diverticulitis in the past, has never had surgery for this. Most recent colonoscopy in 08/2023 benign, with biopsy and adenoma negative for malignancy, and diverticula seen. Labs at OSH with lactate 2.7, WBC 19. CT with 7x4 cm abscess and colovesical fistula. He was started on Zosyn, has been NPO, and mIVF running. Last PO intake yesterday morning at 11 AM. No history of bleeding dyscrasias or anesthetic complications. Not on blood thinners. PAST MEDICAL HISTORY: 1. Hypertension 2. Cannabis misuse 3. Impulse control [...] . No additional CRC surveillance recommended by knowledge management consultant. 9. Decreased vitamin D - 02.24.2017 [...] - By 02.13.[address] 03.14.2020 OSH(ED [place], [place]): Pt. Declined Admission. 03.14.2020 CT with Mild Sigmoid diverticulitis. 04.23.2020 ED(OSH): Declined admission. 17. 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 18. Ex-tobacco user 19. Impaired Fasting Glucose (SCT [id number]) - 02.26.2014 A1c 5.8%. 20. Adrenal mass [...] 24. Hiatal hernia 25. Shoulder Pain (SCT [id number]) 26. Trigger finger 27. [facility] Primary Care - Community Care Primary: Dr. Cathi Simeon, [facility] and [facility], [place] [address]. FUNCTIONAL HEALTH STATUS (BEFORE ADMISSION): Independent in ADLs (bathing/feeding/dressing/t oileting/mobility) Past Surgical History: Hx of 3 lumber back surgeries many years ago. Hx of stent placement 2016. H/o hemorrhoids s/p banding. 08/2015 - hemorrhoidectomy No issues with anesthesia. No family hx of issues with anesthesia. Family History: Pt denies any pertient family history Social History: 1. Tobacco - 30+ year 1.5ppd smoker. Pt reports quitting 10ish years ago. 2. Alcohol - Social drinker 3. Illicit Drug Use - Marijuana use every day. Denies other ilicit drugs 4. Living Situation - Lives with significant other ACTIVE MEDICATIONS: Active Inpatient Medications (including Supplies): Active Inpatient Medications Status 1) ACETAMINOPHEN (INPT) TAB 650MG PO Q4H PRN FOR PAIN: ACTIVE MAX DOSE of acetaminophen is 4000mg in 24 hours 2) ISOSORBIDE MONONITRATE TAB,SA 30MG PO QDAY ACTIVE 3) LACTATED RINGERS INJ,SOLN in LACTATED RINGERS 1000 ACTIVE ML 75 ml/hr@0 IV limit = 24 hours IV 4) PIPERACILLIN/TAZOBACTAM 3.375GM 50ML INJ in ACTIVE PIPERACIL/TAZOB 3.375GM PREMIX 50 ML INFUSE OVER 30 Minutes IVPB Q6H 5) SALINE FLUSH INJ 10ML IV Q8H AFTER EACH USE, MINIMUM ACTIVE OF EVERY SHIFT. MEDICATION RECONCILIATION Outpatient At this visit I have reviewed the medication list, and discussed relevant medications with the patient/surrogate. An updated patient medication list was given to the participant(s). No Change ALLERGIES/ADR: TERAZOSIN (Mar 13, 2015) FAMILY HISTORY: Noncontributory REVIEW OF SYSTEMS: All systems reviewed and negative except as noted above PHYSICAL EXAM: Pulse: 61 (04/21/2024 07:35) Blood Pressure: 125/59 (04/21/2024 07:35) Respiration: 16 (04/21/2024 07:35) Temperature: 99.6 F [37.6 C] (04/21/2024 07:35) Pulse oximetry: 96% (04/21/2024 07:35) Weight: 211.1 lb [95.75 kg] (04/23/2024 13:59) BMI: 29.5 GENERAL: alert and oriented x 4, cooperative, no apparent distress SKIN: Skin texture/turgor/pigmentation within normal limits, no lesions/rashes/cyanosis. HEAD: Atraumatic/normocephalic EYES: EOM intact, sclerae and conjunctivae clear CHEST/RESPIRATORY/LUNGS: Normal work of breathing on room air CARDIOVASCULAR: Regular rate, well perfused extremities ABDOMEN: Soft, tender to palpation in LLQ, moderately distended, no palpable mass, no guarding, not peritonitic MUSCULOSKELETAL: No muscle tenderness, joint swelling/tenderness, normal ROM. EXTREMITIES: No clubbing, cyanosis or edema. NEUROLOGICAL: No gross motor or sensory defect. MENTAL STATUS: alert and oriented x4, cooperative, thought coherent and goal directed LAB RESULTS: Hgb: HGB 13.0 L (04/23/24) WBC: WBC 12.50 H (04/23/24) HCT: HCT 37.7 L (04/23/24) Platelets: PLT 284 (04/23/24) CMP: SLT - Lab Tests Selected Collection DT Specimen Test Name Result Units Ref Range 04/23/2024 13:20 PLASMA GLUCOSE 92 mg/dL 70 - 100 04/23/2024 13:20 PLASMA SODIUM 142 mmol/L 136 - 145 04/23/2024 13:20 PLASMA POTASSIUM 2.6 L mmol/L 3.5 - 5.1 04/23/2024 13:20 PLASMA CHLORIDE 95 L mmol/L 98 - 107 04/23/2024 13:20 PLASMA CO2 33 H mmol/L 22 - 29 04/23/2024 13:20 PLASMA ANION GAP 14 mmol/L 5 - 15 04/23/2024 13:20 PLASMA UREA NITROGEN 19 mg/dL 8 - 04/23/2024 13:20 PLASMA CREATININE 0.7 mg/dL 0.7 - 1.2 04/23/2024 13:20 PLASMA PROTEIN,TOTAL 7.1 g/dL 6.4 - 8.3 04/23/2024 13:20 PLASMA ALBUMIN 3.6 g/dL 3.5 - 5.2 04/23/2024 13:20 PLASMA CALCIUM 9.7 mg/dL 8.4 - 10.2 04/23/2024 13:20 PLASMA BILIRUBIN, TOTAL 0.7 mg/dL 0.2 - 1.2 04/23/2024 13:20 PLASMA AST/SGOT 28 U/L 11 - 34 04/23/2024 13:20 PLASMA ALT/SGPT 19 U/L Ref: <=44 04/23/2024 13:20 PLASMA ALKALINE PHOSPHAT 68 U/L 40 - 150 PT: PT 14.5 H (04/23/24) INR: INR 1.2 H (04/23/24) PTT: APTT 29.3 (04/23/24) Lactate 1.5 6/24 - UA negative IMAGING CT A/P with IV Contrast at OSH Imaging reviewed OSH Read - Liver - hepatic cyst at dome of liver at 12 mm Adrenal glands - hypodense left adrenal nodule at 17 mm Vasculature - atherosclerosis with R common iliac artery at 19 mm, L common iliac artery at 19 mm GI tract - no dilated loops, intramural lipoma at 9 mm in 3rd portion of duodenum. Large amount of stool in colon. Underlying colonic diverticulosis with prominent wall thickening of sigmoid and fat stranding. Communication to an air- and fluid-filled structure with prominent rim consistent with peridiverticular abscess at 7.2 x 4.3 cm, extending to level of dome of bladder. Associated wall thickening of dome of bladder with communication to abscess with air throughout the bladder lumin. Pelvis: thick-walled bladder with communication to the peridiverticular abscess. Impression: 73 Y M admitted with diverticulitis with colovesical fistula and adjacent abscess. Abdomen is not peritonitic. Vitals and labs reassuring. Has been NPO with Zosyn. No acute surgical intervention indicated at this time. Recommend Mathew to divert urine from fistula. Plan: - Continue NPO, IVF - Continue IV antibiotics - Recommend Mathew to decompress bladder - IR consult to consider placement of drain into pelvic abscess - No acute surgical intervention indicated at this time - Colorectal surgery will continue to follow. Page if questions/concerns. The patient was discussed with colorectal fellow and staff surgeon. Logan Sood MD General Surgery, PGY2 /es/ Logan Sood MD Resident, Gen Surg Signed: 04/23/2024 20:08 Receipt Acknowledged By: 04/24/2024 16:45 /alexi/ PALMIRA POWELL MD STAFF SURGEON, COLON/RECTAL LOGAN SOOD JEZ [facility] Apr 23, 2024 05:27 PM NURSING NOTE: LOCAL TITLE: TELEMETRY AND OXIMETRY CENTRALIZED NOTE STANDARD TITLE: NURSING NOTE DATE OF NOTE: APR 23, 2024@17:27 ENTRY DATE: APR 23, 2024@17:27:17 AUTHOR: BHARAT ZABALA EXP COSIGNER: URGENCY: STATUS: COMPLETED Telemetry (Cardiac) Monitor: Evening Shift Telemetry initiation date/time: Mar@12:17. Telemetry indication: Critical Care Cardiac History: CAD w/ stent x2, HTN, AAA Cardiac rhythm interpretation: Second Degree type 1 AVB HR:68 ME Int:n/a QRS Int:.13 QT Int:.46 QTc Int:.49 Telemetry leads monitored this shift: II and V lead Alarm parameters verified this shift Continuous Oximetry Montior: Evening Shift Continuous oximetry initiation date/time: Mar@12:17. Oximetry indication: aspiration risk Respiratory history: lung nodules, JUANJOSE, sleep apnea Continuous oximetry readin-97% Alarm parameters verified this shift. Accuracy of oxygen reading verified by waveform and/or review. /alexi/ BHARAT ZABALA CNC MAINTENANCE TECHNICIAN Signed: 04/23/2024 17:31 BHARAT ZABALA [facility] Apr 23, 2024 05:14 PM ATTENDING ADMISSION EVALUATION NOTE: LOCAL TITLE: MEDICINE ADMISSION STAFF NOTE STANDARD TITLE: ATTENDING ADMISSION EVALUATION NOTE DATE OF NOTE: APR 23, 2024@17:14 ENTRY DATE: APR 23, 2024@17:15:07 AUTHOR: MCKAY VICOTR EXP COSIGNER: URGENCY: STATUS: COMPLETED INPATIENT MEDICINE STAFF ATTENDING NOTE Patient seen and examined by me along with the resident. Work up and Treatment Plan: The H&P was presented to me by the resident/medical student. I have verified pertinent findings and discussed the assessment, goals, diagnostic evaluation and treatment plan with the resident/medical student. Summary noted below. Plan of care was discussed with the patient and/or family (risks/benefits/alternative s) REASON FOR ADMISSION: complicated diverticulitis with abcess and colovesicular fistula PERTINENT HISTORY: A 73 year old MALE with above [place] admit here. He has no pain currently. Feels constipated. Has had several surgeries without adverse reactions to anesthesia. No family history of anesthesia issues. No history of clots or excessive bleeding. Gets winded when walking stairs but no chest pain or pressure with activity. PERTINENT EXAM: Physical Findings: BP normal. HR occasionally slow. no murmurs lungs clear bilat abdomen soft with some lower quadrant tenderness. no rebound tenderness LABORATORY/X-RAY/OTHER PERTINENT DATA: Today's Lab Results: APR 23, 2024 WBC: 12.50 H RBC: 4.07 L HGB: 13.0 L HCT: 37.7 L MCV: 92.6 MCH: 31.9 MCHC: 34.5 RDW: 14.2 PLT: 284 MPV: 10.2 SEGS: 84.3 H LYMPHS: 8.7 L MONOCYTES: 5.9 EOSINO: 0.2 BASO: 0.2 NEUTROPHIL, ABSOLUTE: 10.53 H EOSINO, ABSOLUTE: 0.03 BASO, ABSOLUTE: 0.02 MONOCYTE, ALTERNATE ABS: 0.74 LYMPHS, ALTERNATE ABS: 1.09 I.7 IG,ABSOLUTE: 0.09 NEW APTT: 29.3 INR 1998: 1.2 H PROTHROMBIN TIME (05/02): 14.5 H GLUCOSE: 92 UREA NITROGEN: 19 CREATININE: 0.7 SODIUM: 142 POTASSIUM: 2.6 L CHLORIDE: 95 L CO2: 33 H CALCIUM: 9.7 PROTEIN,TOTAL: 7.1 ALBUMIN: 3.6 BILIRUBIN,TOTAL: 0.7 MAGNESIUM: 2.5 ANION GAP: 14 ALKALINE PHOSPHATASE(37C): 68 SGOT(37C): 28 SGPT(37C): 19 CREATININE EGFR (CKD-EPI): >90 LACTIC ACID: 1.5 ASSESSMENT & TREATMENT PLAN / RECOMMENDATIONS: 73-year-old man with complicated diverticulitis with large abscess and colovesicular fistula complicated diverticulitis large abscess colo-vesicular fistula -- colo-rectal will talk to IR tomorrow to see if they can drain abscess. 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 Or daily clopidogrel as that might be superior -- cont statin class 1 obesity obstructive sleep apnea emphysema - seen on CT for lung cancer screening -- last PFTs were normal. Might be retaining CO2. would limit oxygen to no more than 92% if he needs oxygen. on room air currently He would trust his significant other's son Kirit Piña to be a surrogate decision maker if patient lacked capacity. Benedict[facility] number is [phone] Full Code confimred today // MCKAY VICTOR M.D. Staff Physician Signed: 04/23/2024 17:28 MCKAY VICTOR [facility] Apr 23, 2024 04:01 PM CARDIOLOGY CONSULT: LOCAL TITLE: CARDIOLOGY CONSULT STANDARD TITLE: CARDIOLOGY CONSULT DATE OF NOTE: APR 23, 2024@16:01 ENTRY DATE: APR 23, 2024@16:01:54 AUTHOR: STEVEN CISNEROS EXP COSIGNER: URGENCY: STATUS: COMPLETED CARDIOLOGY CONSULT Has ADDENDA ELECTROPHYSIOLOGY CONSULT Mr. Roy is a 71 year-old with PMH significant for CAD s/p PCI with EVIE to proximal RCA & mid RCA 03/23/2016, HFpEF, HTN, HLD, JUANJOSE, common iliac artery aneurysm, AAA, h/o tobacco abuse, pre-diabetes, kidney infarct, recurrent diverticulosis who presented to ED with acute on chronic diverticulitis and new colovesicular fistula. Electrophysiology was consulted due to concern for 2nd degree AV block. Patient initially presented to the ED in [place], [place] with complaints of air and feces in his urine. CT scan showed diverticulitis with abscess and new colovesicular fistula. WBC up to 19, lactate 2.7, CRP 18, K 2.4. Hemodynamically stable. He was started on IV antibiotics with zosyn and admitted to med surg with colorectal surgery evaluation. A 12-lead ECG was obtained which demonstrated second degree, type I AV block. Prior ECG's show 1st degree AV block with right bundle branch block, LAFB, and left axis deviation. He has no reported history of pre-syncope or syncope. Not on any AV sapna agents chronically. Active Outpatient Medications Status 1) ATORVASTATIN CALCIUM [...] MOUTH ACTIVE EVERY DAY FOR BLOOD PRESSURE LABS/IMAGING -Reviewd ECG/TELEMETRY -Reviewed TTE 2015 Summary: 1. Technically difficult study with low echo windows. Consider using LVO if clinically indicated 2. Normal LV size and function with probably normal wall motion. EF was in the 55-60% range. Moderate concentric LVH. 3. No significant LV diastolic dysfunction but tissue velocities are reduced and filling pressures may be upper normal. 4. Normal RV size and function. 5. Normal LA \T\ RA size and function. 6. No significant Mitral and Trisuspid valve regurgitation. PA pressures could not be assessed with no significant TR envelope 7. Aortic valve was not well seen. No significant stenosis or regurgitation by doppler assessment. 9. No previous study for comparison. 2D AND M-MODE MEASUREMENTS (normal ranges within parentheses): Left Ventricle: Normal Aorta/Left Atrium: Normal IVSd (Mmode): 1.40 cm (0.7-1.1) Aortic Root: 3.50 cm (2.4-3.7) ASSESSMENT/PLAN Mr. Roy is a 71 year-old with PMH significant for CAD s/p PCI with EVIE to proximal RCA & mid RCA 03/23/2016, HFpEF, HTN, HLD, JUANJOSE, common iliac artery aneurysm, AAA, h/o tobacco abuse, pre-diabetes, kidney infarct, recurrent diverticulosis who presents with acute on chronic diverticulitis with new colovesicular fistula. 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 Findings consistent on serial ECG's, along with intermittent junctional escape rhythm. With mobitz I AV block, there is no indication for TVP/PPM placement. Recommend to continue to monitor. Plan -Avoid AV sapna agents -Please obtain updated TTE - if BC are positive, needs IE ruleout -EP will sign off Assessment and plan discussed with Dr. Cooley. Steven Cisneros MD Basket Hand Weaver /alexi/ STEVEN CISNEROS INHALATION THERAPY AIDES TEACHER Signed: 04/23/2024 16:06 Receipt Acknowledged By: 04/23/2024 17:21 /alexi/ AMIE COOLEY MD PHD STAFF PHYSICIAN-CLINICAL CARDIAC ELECTROPHYSIOLOGY 04/23/2024 ADDENDUM STATUS: COMPLETED Patient seen and examined. Agree with above documentation by fellow. Review of his EKGs are consistent with second-degree AV blockMobitz 1 (Wenckebach). Clinically he is asymptomatic from cardiac rhythm perspective. No prior syncope. Currently no indication for pacemaker implant. Thank you for involving us in his care. Please do not hesitate to call us back if you have any further questions. /alexi/ AMIE COOLEY MD PHD STAFF PHYSICIAN-CLINICAL CARDIAC ELECTROPHYSIOLOGY Signed: 04/23/2024 17:24 STEVEN CISNEROS [facility] Apr 23, 2024 03:40 PM H & P NOTE: LOCAL TITLE: H&P HISTORY & PHYSICAL - MEDICINE STANDARD TITLE: H & P NOTE DATE OF NOTE: APR 23, 2024@15:40 ENTRY DATE: APR 23, 2024@15:40:09 AUTHOR: GERARD CLITNON COSIGNER: URGENCY: STATUS: COMPLETED MEDICINE HISTORY & PHYSICAL Chief Complaint: Diverticulitis complicated w/ abscess and colovesicular fistula History of Present Illness (HPI) - 73 years old MALE with PMHx of recurrent diverticulitis, HTN, multiple back surgieries, CAD w/ stent x2 placed in 2016 being transferred from [facility] after CT Scan Abd/Pelvis w/ contrast demonstrated acute diverticulitis w/ a 7.4cm x 4.2cm abscess and new colovesicular fistula requiring a higher level of care. Prior to today's admission: Patient [facility] [place] [facility] [place] two days ago with ongoing difficulties with dysuria, urinary frequency and constipation. Workup at that time was negative for a UTI and pt wished to return home. At about 3am today patient reports he was feeling worse than a day prior and also noted blood in his urine. He therefore drove himself to [facility]. When attempting to get a UA at [facility] patient was noted to have gas and feces in his urine. Prompt CT scan of abd/pelvis demonstrated the above findings. Patient was given a dose of Zosyn, 1L of IVF, and potassium replacement (K+ of 2.4). Today he tells us that he has been feeling ill with difficulties voiding and constipation ongoing for 1.5 weeks. He has been sick enough he states I have been living in the bathtub. He endorses intermittent fever and chills. Denies cough or other respiratory symptoms. When asked about his heart history patient reports of the stents and BP meds, but no concerns as of late. Denies chest pain, heart palpitations, syncope, and dizziness. History of abdominal problems and diverticulitis dates back 10+ years. Past Medical History: Active problems - Computerized Problem List is [...] . No additional CRC surveillance recommended by knowledge management consultant. 9. Decreased vitamin D - 02.24.2017 [...] - By 02.13.[address] 03.14.2020 OSH(ED [place], [place]): Pt. Declined Admission. 03.14.2020 CT with Mild Sigmoid diverticulitis. 04.23.2020 ED(OS[facility]): Declined admission. 17. 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 18. Ex-tobacco user 19. Impaired Fasting Glucose (SCT [id number]) - 02.26.2014 A1c 5.8%. 20. Adrenal mass [...] 24. Hiatal hernia 25. Shoulder Pain (SCT [id number]) 26. Trigger finger 27. [facility] Primary Care - Community Care Primary: Dr. Cathi Simeon, [facility] and [facility], [place] [address]. Past Surgical History: Hx of 3 lumber back surgeries many years ago. Hx of stent placement 2015. H/o hemorrhoids s/p banding. No issues with anesthesia. No family hx of issues with anesthesia. Family History: Pt denies any pertient family history Social History: 1. Tobacco - 30+ year 1.5ppd smoker. Pt reports quitting 10ish years ago. 2. Alcohol - Social drinker 3. Illicit Drug Use - Occasional Marijuana use. Denies other ilicit drugs 4. Living Situation - Lives with significant other Allergies: TERAZOSIN (Mar 13, 2015) Review of System: A 10 system review of systems was completed and negative other what is documented above. Physical Exam: Temp: 99.6 F [37.6 C] (04/21/2024 07:35) Pulse:61 (04/21/2024 07:35) BP: 125/59 (04/21/2024 07:35) Resp: 16 (04/21/2024 07:35) Weight: 211.1 lb [95.75 kg] (04/23/2024 13:59) Pain: 5 (04/21/2024 07:35) O2 Sat: 96% (04/21/2024 07:35) BMI: 29.5 General: Alert, orientated, sitting up in bed. Pleasent Cardio: Irregular rhythm, no murmurs or extra heart sounds Lungs: CTAB, normal respiratory effort Abd: LLQ tenderness to palpation. Mildly distended. No guarding Extrem: No LE edema Neuro: No obvious neurologic deficits. Labs: - INR: INR 1.2 H PLASMA (04/23/24 13:20) - Complete Blood Count White count: WBC 12.50 H (04/23/24) Hemoglobin: HGB 13.0 L (04/23/24) Hematocrit: HCT 37.7 L (04/23/24) Platelets: PLT 284 (04/23/24) - Complete Metabolic Panel SODIUM 142 (04/23/24) POTASSIUM 2.6 L (04/23/24) CHLORIDE 95 L (04/23/24) CO2 33 H (04/23/24) UREA NITROGEN 19 (04/23/24) CREATININE 0.7 (04/23/24) GLUCOSE 92 (04/23/24) CALCIUM 9.7 (04/23/24) MAGNESIUM 2.5 (04/23/24) EGFR (04/01) 07/10/2021@0641 74 CREATININE EGFR (CKD-EPI) 04/23/2024@1320 >90 AST/SGOT 28 (04/23/24) ALT/SGPT 19 (04/23/24) ALK PHOSPHATASE 68 (04/23/24) ALBUMIN 3.6 (04/23/24) BILIRUBIN, TOTAL 0.7 (04/23/24) Urinalysis: URINE COLOR COLORLESS (04/21/24) APPEARANCE CLEAR (04/21/24) SPECIFIC GRAVITY 1.009 (04/21/24) URINE PH 5.5 (04/21/24) URINE BILIRUBIN NEGATIVE (04/21/24) URINE KETONES NEGATIVE (04/21/24) URINE GLUCOSE >1000 (04/21/24) URINE PROTEIN NEGATIVE (04/21/24) URINE HEME NEGATIVE (04/21/24) LEUKOCYTE ESTERASE NEGATIVE (04/21/24) URINE NITRITE NEGATIVE (04/21/24) URINE BACTERIA NONE SEEN (04/21/24) URINE WBC/HPF 1 (04/21/24) URINE RBC/HPF NONE SEEN (04/21/24) Active and Recently Inpatient Medications (including Supplies): Active Inpatient Medications Status 1) ACETAMINOPHEN (INPT) TAB 650MG PO Q4H PRN FOR PAIN: ACTIVE MAX DOSE of acetaminophen is 4000mg in 24 hours 2) LACTATED RINGERS INJ,SOLN in LACTATED RINGERS 1000 ACTIVE ML 120 ml/hr@0 IV 3) PIPERACILLIN/TAZOBACTAM 3.375GM 50ML INJ in ACTIVE PIPERACIL/TAZOB 3.375GM PREMIX 50 ML INFUSE OVER 30 Minutes IVPB Q6H 4) POTASSIUM CHLORIDE LIQUID (20MEQ/15ML) 60MEQ/45ML PO ACTIVE ONCE Dilute each cup in at least 4 ounces of cold water or other beverage. 5) SALINE FLUSH INJ 10ML IV Q8H AFTER EACH USE, MINIMUM ACTIVE OF EVERY SHIFT. Pending Inpatient Medications Status 1) ISOSORBIDE MONONITRATE TAB,SA 30MG PO QDAY PENDING Inactive Inpatient Medications Status 1) PIPERACILLIN/TAZOBACTAM 4.5GM 100ML INJ in DISCONTINUED PIPERACIL/TAZOB 4.5GM PREMIX 100 ML INFUSE OVER 30 Minutes IVPB Q6H 7 Total Medications No Active Remote Medications for this patient Imaging Records obtained from [facility] - Disc w/ CT scan given to Image processing and will hopefully be updated to his chart shortly. Assessment/Plan: 73 years old MALE with PMHx of recurrent diverticulitis, HFpEF, h/o tobacco use, HTN, multiple back surgieries, CAD w/ stent x2 placed in 2016 being transferred from [facility] after CT Scan Abd/Pelvis w/ contrast demonstrated acute diverticulitis w/ a 7.4cm x 4.2cm abscess and new colovesicular fistula requiring a higher level of care. Started on Zosyn, colorectal surgery consulted. #Acute on Chronic Diverticulitis #Colonic abscess 7.4cm x 4.2cm #Colovesicular Fistula #Second degree Mobitz type I Heart block #Elevated WBC #Elevated Lactate - Resolved Acute on chronic diverticulitis now complicated with abscess and fistula. Zosyn started at [facility] and will be continued here for the time being. Overall patient looks good clinically, is hemodynamically stable, and w/o clear evidence of sepsis. Colorectal surgery consulted and will likely perform an intervention. However, pt's EKG on arrival demonstrated findings concerning for a Mobitz second degree type II heart block. EP cardiology consulted. They believe rhythm is consitent with Wenckebach rhythm. Possibility for progression to worsening rhythm, but okay for pt to undego surgery. No need for pacemaker placement prior. Colorectal surgery to be notified of this update. In the meantime we will provide more fluids and monitor him closely. - IVF 75ml/hr x24 hours, clear liquid diet and NPO at midnight - Telemetry - Blood culture - pending from Outside hospital - Zosyn q6h - EP Consult (recommend Echo - order placed) - Colorectal surgery consult - Recommending IR to place drain #Hypokalemia Hypokalemia, likely a result of poor PO intake, diuretic use. Asymptomatic. Will hold diuretics for now, replace, and monitor closely. - Resume SCREEN PRINTING LOADER UNLOADER statin, SCREEN PRINTING LOADER UNLOADER isosorbide - Hold SCREEN PRINTING LOADER UNLOADER Furosemide, HCTZ, Empaglizflozin, and spironolactone - K+ replacement per protocol #Hypertension #CAD, hx of stent placement x2 2016 - Resume SCREEN PRINTING LOADER UNLOADER statin, SCREEN PRINTING LOADER UNLOADER isosorbide - Hold SCREEN PRINTING LOADER UNLOADER Furosemide, HCTZ, Empaglizflozin, and spironolactone - Echocardiogram (recommended by EP) #Hx of Tobacco use - Quit 10 years ago #Colovesicular fistula #Feces in urine - Surgery recommending Mathew placement, order placed Fluids/Electrolytes/Nutriti on (FEN): Liquid Diet, NPO at midnight Deep Vein Thrombosis (DVT) Prophylaxis: None, pre-procedure Code Status: Full Code Disposition: TBD, hopefully back to indepdent living I have seen and discussed the patient with my attending, Dr. Victor, who agrees with the above assessment and plan. Additional Secondary Diagnoses /alexi/ GERARD CLINTON Signed: 04/23/2024 17:03 GERARD CLINTON [facility] Apr 23, 2024 02:40 PM COMMUNICATION NOTE: LOCAL TITLE: CRITICAL LAB NOTIFICATION STANDARD TITLE: COMMUNICATION NOTE DATE OF NOTE: APR 23, 2024@14:40 ENTRY DATE: APR 23, 2024@14:40:27 AUTHOR: EMERITA ZAMORANO EXP COSIGNER: URGENCY: STATUS: COMPLETED CRITICAL LAB VALUE Potassium 2.6. Provider notified at 1435. /alexi/ EMERITA ZAMORANO RN Signed: 04/23/2024 14:48 EMERITA ZAMORANO [facility] Apr 23, 2024 01:49 PM TREATMENT PLAN INTERDISCIPLINARY NOTE: LOCAL TITLE: ITP INTERDISCIPLINARY TREATMENT PLAN STANDARD TITLE: TREATMENT PLAN INTERDISCIPLINARY NOTE DATE OF NOTE: APR 23, 2024@13:49 ENTRY DATE: APR 23, 2024@13:49:57 AUTHOR: EMERITA ZAMORANO COSIGNER: URGENCY: STATUS: COMPLETED Interdisciplinary Treatment Plan (ITP) Date of current Admission: Mar Medical problems to be addressed, including reason for admission as well as all active medical problems: 1. colovesicular fistula with abscess At risk indicators at time of admission: Pain noted other than 0 on 0-10 pain scale, Positive nutrition screen/consult sent Support services in community: Current living situation: Lives with others (indicate who in comments) Patient/Family input to care: family Patient Goals:go home Treatment plan/Interventions: Encourage activity as tolerated., Educated Patient on use of Pain Scale Measurable Outcomes: Patient will verablize understanding of the 0-10 pain scale., Patient will deny pain or report that pain is managed at an acceptable level., Patient will not fall during hospitalization., Skin will remain intact/or no further breakdown., Patient will maintain/achieve satisfactory nutritional intake and a nutrition consult will be completed., Patient will maintain/improve their physical mobility and an Occupational Therapy Consult will be completed., Patient will maintain/improve their physical mobility and an Physical Therapy Consult will be completed., Patient will maintain maximum level of function., Patient will be afebrile and without signs or symptoms of infection. Discharge Plan: Patient will return home. Anticipated resources needed for discharge: No anticipated resources needed at this time. Anticipated educational needs: Tests/treatments/procedures : risks and benefits, disease process, medication management, and discharge instructions. Participants: providers, nurses, pharmacy Transportation needs: son will waste picker Plan of care shared with patient/family and verbalized with understanding. /alexi/ EMERITA ZAMORANO RN Signed: 04/23/2024 14:47 EMERITA ZAMORANO [facility] Apr 23, 2024 12:23 PM NURSING NOTE: LOCAL TITLE: TELEMETRY AND OXIMETRY CENTRALIZED NOTE STANDARD TITLE: NURSING NOTE DATE OF NOTE: APR 23, 2024@12:23 ENTRY DATE: APR 23, 2024@13:03:57 AUTHOR: ANI CONN EXP COSIGNER: URGENCY: STATUS: COMPLETED Telemetry (Cardiac) Monitor: Day Shift Telemetry initiation date/time: Mar@12:17. Telemetry indication: critical care Cardiac History: diverticulitis, HTN Cardiac rhythm interpretation: sinus rhythm w/ BBB, intermittent 2 AVB Type 2 HR:58 ME Int:n/a QRS Int:.14 QT Int:.50 QTc Int:.49 Telemetry leads monitored this shift: II and V lead Alarm parameters verified this shift Alarm parameters modified from default settings: 50 to 40 as directed by nursing staff on unit Significant cardiac events noted this shift (procedures, cardiac drips, ectopy, chest pain, changes in rhythm, etc): Pt goes in/out of 2 AVB Type 2, HR drops to mid 40's. RN Emerita notified. Continuous Oximetry Montior: Day Shift Continuous oximetry initiation date/time: Mar@12:17. Oximetry indication: aspiration risk Respiratory history: lung nodules, JUANJOSE Continuous oximetry readin-98% Alarm parameters verified this shift. Accuracy of oxygen reading verified by waveform and/or review. /alexi/ ANI CONN TOOL REPAIR TECHNICIAN Signed: 04/23/2024 13:16 ANI CONN [facility] Apr 23, 2024 11:39 AM NURSING ADMISSION EVALUATION NOTE: LOCAL TITLE: [facility] ACUTE INPATIENT NSG ADMISSION SCREEN STANDARD TITLE: NURSING ADMISSION EVALUATION NOTE DATE OF NOTE: APR 23, 2024@11:39 ENTRY DATE: APR 23, 2024@11:40:16 AUTHOR: EMERITA ZAMORANO EXP COSIGNER: URGENCY: STATUS: COMPLETED [facility] ACUTE INPATIENT NSG ADMISSION SCREEN Has ADDENDA ======= ALLERGY/ADVERSE DRUG REACTION (ADR) REVIEW (MRT5) ======= FACILITY ALLERGY/ADR -------- No Remote Allergy/ADR Data available for this patient [facility] [place] Allergy/Adverse Drug Reaction Review to be conducted by: Other: Allergy review by: providers ====== MEDICATION REVIEW (MRR1) ====== Did patient bring medication(s) from home? No ====== GENERAL INFORMATION ====== Admission information given by: Patient Is there a legal guardian/conservator? No Preferred language for discussing healthcare: Nepalese Preferred mode of communication: Verbal Sensory Deficits & Contributing Information: Items at Bedside: Visual Aids: Standard Glasses Other: cell phone, glasses x2, wallet, shirt, shorts, belt, shoes, briseno ======= INFECTIOUS DISEASE RISK SCREEN ======= Travel Screen: Have you traveled within the [place] within the last 21 days? No Have you traveled outside the [place] within the last 21 days? No Within the last 14 days, have you had: No known exposure Other Exposure to Infectious Disease: No known exposure Patient reported the following symptoms: Abdominal Pain (Stomach) Fatigue Unintentional Weight Loss > 10 lbs Weakness History of Multiple Drug Resistant Organism (MDRO): No ======= NUTRITION SCREENING ======= Malnutrition Screening Lost weight recently without trying: Yes: Amount weight lost: 6-10 kg (14-23 lbs) (2 points) Have you been eating poorly because of decreased appetite? Yes (1 point) Total Score: 3 Other Nutrition Screening Questions: The patient does not report any concerns with their teeth that would make it difficult to eat. The patient does not report overeating to the point of feeling sick or making themselves vomit. The patient denies gaining 10 lbs.(4.5 kgs) or more in the past 3 months without trying. The patient reports having a food allergy, intolerance, special dietary need, or ethnic, cultural or anabaptism preference that affects their dietary need. Specify: no spices Food Insecurity Screening Within the past 12 months, you worried whether your food would run out before you got money to buy more. Never true Within the past 12 months, the food you bought just did not last you and you did not have the money to get more. Never true Food Insecurity Disposition: Consult/notification to Nutrition. ====== RISK SCREENINGS ====== Alcohol Screen: Screen to be completed by: Nurse: SCREEN FOR ALCOHOL (AUDIT-C) An alcohol screening test (AUDIT-C) was negative (score=2). 1. How often did you have a drink containing alcohol in the past year? Consider a drink to be a 12 ounce can or bottle of regular beer, 8 ounces of malt liquor, a 5 ounce glass of table wine, or a 1.5 ounce shot of liquor (like scotch, gin, or vodka). Monthly or less 2. How many drinks containing alcohol did you have on a typical day when you were drinking in the past year? Zero drinks 3. How often did you have six or more drinks on one occasion in the past year? Less than monthly *Does the patient consume alcohol? Yes: Alcohol Use History: Amount used/Frequency: rarely Date/Time of last use: Mar Do you have a history of alcohol withdrawal symptoms? No Do you have a history of Delirium Tremens (DTs)? No Do you have a history of seizures related to withdrawal? No Tobacco Use: Never - tobacco user Do you currently or have you ever used alternative nicotine products? No Substance Use Assessment: *Do you use any recreational drugs or narcotics (prescription or non-prescription)? Yes: Cannabinoids/Marijuana: Amount used/Frequency: couple of bumps this AM Date/Time of last use: Mar Offer Services for Substance Use Disorder: The patient declines referral for substance use assessment or treatment ======= RISK OF WANDERING ======= The patient does not have a history of wandering. The patient does not have a history of elopement. The patient is not expressing a desire to leave. ===== SUICIDE SCREEN ===== [place] Suicide Severity Rating Scale (C-SSRS) 1. Over the past month, have you [...] required due to responses to other questions. C-SSRS Screen is Negative ====== EXPOSURE TO VIOLENCE AND ABUSE PRE-SCREEN ====== Are you worried for your safety, that you will be hurt or harmed? No Has anyone tried to force you to sign papers or use your money against your will? No ====== POST TRAUMATIC STRESS DISORDER CARE CONSIDERATIONS ====== To minimize a startle response, what is your preference on how best to awaken you? No preference ======= REPRODUCTIVE & SEXUAL HEALTH ======= Do you have any sexual or reproductive concerns you would like your healthcare team to be aware of? No ====== ADVANCE DIRECTIVE ====== Notification of Rights Related to Advance Directives: Written notification not provided. Explain: pt. declined *The patient wishes to receive information about or assistance with Advance Care Planning and/or Advance Directive: No ===== SPIRITUALITY ===== Are there anabaptism practices or spiritual concerns you want the gas turbine assembler, your provider, and other health care team members to know? No ====== ANTICIPATED DISCHARGE NEEDS ====== Where do you live? Housing owned/rented by [place]: Method of transportation upon discharge: Other: Comment: family will waste picker Are there any anticipated barriers to discharge? No ===== EDUCATIONAL NEEDS/LEARNING STYLE ===== Barriers to learning: None evident Patient learning style preferences: 1:1 ======== GARCIA FALL SCALE & TIPS PROGRAM ======== Garcia Fall Scale: The Garcia Fall scale was performed and score was 35. This is indicative of moderate risk for falls. History of falling: immediate or within 3 months? No Secondary diagnosis: Yes Ambulatory aid: None/bedrest/nurse assist Intravenous therapy/Heparin lock: Yes Gait/Transferring: Normal/bed rest/immobile Mental Status: Oriented to own ability/knows own limitations Fall Tailoring Interventions for Patient Safety (TIPS) Fall TIPS initiated with patient: Yes Interventions: Toileting schedule frequency established Toileting method: Assistance out of bed: Call for assistance before getting out of bed ======= ASPIRATION RISK ASSESSMENT AND SWALLOW SCREEN ======= Aspiration Risk(s): Screening complete. No aspiration risk identified. Bedside Swallow Screen not indicated. ======== PAIN ASSESSMENT ======== Patient's acceptable pain goal: 0 No pain Are you currently experiencing pain? no /alexi/ EMERITA ZAMORANO RN Signed: 04/23/2024 12:01 04/23/2024 ADDENDUM STATUS: COMPLETED Pt. A&O x4, independent with transfers, telemetry - sinus rhythm with BBB and intermittently 2nd degree AVB type 2 (EKG done, provider notified). Pt. noted to have low potassium of 2.6; provider notified. LR continuously infusing at rate 120ml/hr per order. Pt. denied pain, SOB, N/V,dizziness. /jerome ZAMORANO RN Signed: 04/23/2024 15:42 EMERITA ZAMORANO [facility]
--- OUTSIDE RECORDS SUMMARY | 2024-05-04 01:01 | XMS_ITS | Encounter Summary ---
Author Name [facility] Organization [facility] Address [address] [place] [address] Care Team Providers Care Lab Tester Name Role Phone JATINDER BENITEZ Primary Care [...] PART A Sep 29, 2016 PART A [id number] [phone] JUDY WEAVER PATIENT Selected Encounter This section includes the information on record at [place] for the Encounter. Date/Time Encounter Type Encounter Description Reason Pro vider Source Apr 23, 2024 08:24 AM Outpatient Encounter COMMUNITY CARE CONSULT IHE Encounter Template Text not used by NE Plan of Treatment: Future Appointments (+ 6 months) and Future Tests (+/- 45 days) The Plan of Treatment section includes future care activities for the patient from all [place] treatmentfacilities. This section includes future appointments and future orders which are active, pending or scheduled. Future Appointments This section includes appointments that were scheduled to occur 6 months from the date of the Encounter, up to a maximum of 20 appointments. The data comes from all [place] treatment facilities. Appointment Date/Time Appointment Type Appointme nt Facility Name Apr 27, 2024 02:30 PM AMBULATORY - NONE [facility] May 02, 2024 10:00 AM AMBUL[facility]ORY [facility] SURGERY [facility] May 04, 2024 09:00 AM [facility] May 07, 2024 08:45 AM AMBULATORY - MEDICINE [facility] May 08, 2024 02:00 PM [facility] May 09, 2024 07:30 AM [facility] May 15, 2024 08:30 AM AMBULATORY - MEDICINE [facility] Active, Pending, and Scheduled Orders This section includes a listing of several types of active, pending, and scheduled orders, including clinic medications orders, diagnostic test orders, procedure orders and consult orders; where the start date of the order is 45 days before the date of the Encounter or 45 days after the date of theEncounter. The data comes from all [place] treatment facilities. Test Date/Time Test Type Test Details Facility Name Apr 26, 2024 10:10 AM Laboratory - Microbiology Order CULTURE & SUSCEPTIBILITY WOUND OTHER WC ONCE ~For Test: CULTURE & SUSCEPTIBILITY ~Culture sample from JUAN drain output [facility] Apr 26, 2024 10:10 AM Laboratory - Microbiology Order GRAM STAIN WOUND OTHER WC ONCE ~For Test: GRAM STAIN ~JUAN drain culture/gram stain [facility] Apr 27, 2024 02:30 PM Imaging - Ultrasound Order US AORTA (P) [facility] May 04, 2024 12:00 AM Laboratory - Chemistry Order BASIC METABOLIC PANEL+MG PLASMA SP ONCE [facility] May 08, 2024 02:00 PM Imaging - CT Scan Order CT (AP) ABDOMEN/PELVIS (P) LISANDRO [facility] Lab Results: +/- 30 days of the encounter This section includes the Chemistry and Hematology Lab Results on record with [place] for the patient. Radiology Reports and Pathology Reports are provided separately, in subsequent sections. Lab Results This section contains the Chemistry/Hematology Results that were resulted 30 days before or 30 daysafter the date of the Encounter. Date/Time Source Result Type Result - Unit Interpretation Reference Range Comment Apr 26, 2024 07:16 AM [facility] BASIC METABOLIC PANEL+MG Specimen Type: PLASMA No comment entered. Ordering Provider: JONO RANDOLPH Report Released Date/Time: Apr 25, 2024 02:50 PM Reporting Lab: [facility] [address] Performing Lab: [facility] [address] CREATININE 0.7 mg/dL 0.7-1.2 UREA NITROGEN 15 mg/dL 8-26 GLUCOSE 106 mg/dL H 70-100 SODIUM 139 mmol/L 136-145 POTASSIUM 3.4 mmol/L L 3.5-5.1 CHLORIDE 105 mmol/L 98-107 CO2 25 mmol/L 22-29 CALCIUM 8.5 mg/dL 8.4-10.2 MAGNESIUM 2.2 mg/dL 1.6-2.6 ANION GAP 9 mmol/L 5-15 .CREAT EGFR(CKD-EPI) >90 >60 Apr 25, 2024 05:10 PM [facility] BASIC METABOLIC PANEL+MG Specimen Type: PLASMA No comment entered. Ordering Provider: GIOVANNI ADLER Report Released Date/Time: Apr 25, 2024 05:04 PM Reporting Lab: [facility] [address] Performing Lab: [facility] [address] CREATININE 0.7 mg/dL 0.7-1.2 UREA NITROGEN 15 mg/dL 8-26 GLUCOSE 104 mg/dL H 70-100 SODIUM 139 mmol/L 136-145 POTASSIUM 3.2 mmol/L L 3.5-5.1 CHLORIDE 103 mmol/L 98-107 CO2 28 mmol/L 22-29 CALCIUM 8.5 mg/dL 8.4-10.2 MAGNESIUM 2.2 mg/dL 1.6-2.6 ANION GAP 8 mmol/L 5-15 .CREAT EGFR(CKD-EPI) >90 >60 Apr 25, 2024 07:46 AM [facility] BASIC METABOLIC PANEL+MG Specimen Type: PLASMA No comment entered. Ordering Provider: GIOVANNI ADLER Report Released Date/Time: Apr 24, 2024 12:37 PM Reporting Lab: [facility] [address] Performing Lab: [facility] [address] CREATININE 0.7 mg/dL 0.7-1.2 UREA NITROGEN 14 mg/dL 8-26 GLUCOSE 127 mg/dL H 70-100 SODIUM 139 mmol/L 136-145 POTASSIUM 2.9 mmol/L L 3.5-5.1 CHLORIDE 101 mmol/L 98-107 CO2 29 mmol/L 22-29 CALCIUM 8.7 mg/dL 8.4-10.2 MAGNESIUM 2.3 mg/dL 1.6-2.6 ANION GAP 9 mmol/L 5-15 .CREAT EGFR(CKD-EPI) >90 >60 Apr 24, 2024 04:42 PM [facility] BASIC METABOLIC PANEL+MG Specimen Type: PLASMA No comment entered. Ordering Provider: GIOVANNI ADLER Report Released Date/Time: Apr 24, 2024 12:37 PM Reporting Lab: [facility] [address] Performing Lab: [facility] [address] CREATININE 0.7 mg/dL 0.7-1.2 UREA NITROGEN 16 mg/dL 8-26 GLUCOSE 97 mg/dL 70-100 SODIUM 138 mmol/L 136-145 POTASSIUM 2.7 mmol/L L 3.5-5.1 CHLORIDE 99 mmol/L 98-107 CO2 30 mmol/L H 22-29 CALCIUM 8.4 mg/dL 8.4-10.2 MAGNESIUM 2.1 mg/dL 1.6-2.6 ANION GAP 9 mmol/L 5-15 .CREAT EGFR(CKD-EPI) >90 >60 Apr 24, 2024 07:36 AM [facility] BASIC METABOLIC PANEL+MG Specimen Type: PLASMA Comment: Critical Value Reported To: Cait Zamorano RN 04-24-24@08[facility]. Critical value report confirmed. Ordering Provider: AARON VICTOR Report Released Date/Time: Apr 23, 2024 05:30 PM Reporting Lab: [facility] [address] Performing Lab: [facility] [address] CREATININE 0.7 mg/dL 0.7-1.2 UREA NITROGEN 16 mg/dL 8-26 GLUCOSE 105 mg/dL H 70-100 SODIUM 138 mmol/L 136-145 POTASSIUM 2.3 mmol/L LL 3.5-5.1 CHLORIDE 98 mmol/L 98-107 CO2 29 mmol/L 22-29 CALCIUM 8.3 mg/dL L 8.4-10.2 MAGNESIUM 2.2 mg/dL 1.6-2.6 ANION GAP 11 mmol/L 5-15 .CREAT EGFR(CKD-EPI) >90 >60 Apr 24, 2024 07:35 AM [facility] CBC & DIFF Specimen Type: BLOOD Comment: Automated Differential Performed Ordering Provider: AARON VICTOR Report Released Date/Time: Apr 23, 2024 05:30 PM Reporting Lab: [facility] [address] Performing Lab: [facility] [address] WBC 10.49 10*3/uL 4.0-11.0 RBC 3.83 10*6/uL [...] 10*3/uL 0-0.1 Apr 23, 2024 01:20 PM [facility] LACTIC ACID Specimen Type: PLASMA No comment entered. Ordering Provider: AARON VICTOR Report Released Date/Time: Apr 23, 2024 12:05 PM Reporting Lab: [facility] [address] Performing Lab: [facility] [address] LACTIC ACID 1.5 mmol/L 0.5-2.2 Apr 23, 2024 01:20 PM [facility] PROTHROMBIN TIME/INR Specimen Type: PLASMA No comment entered. Ordering Provider: AARON VICTOR Report Released Date/Time: Apr 23, 2024 12:05 PM Reporting Lab: [facility] [address] Performing Lab: [facility] [address] .INR 1.2 H 0.8-1.1 .PT 14.5 s H 9.4-12.5 Apr 23, 2024 01:20 PM [facility] ACT PART THROMBO TIME Specimen Type: PLASMA No comment entered. Ordering Provider: AARON VICTOR Report Released Date/Time: Apr 23, 2024 12:05 PM Reporting Lab: [facility] [address] Performing Lab: [facility] [address] APTT 29.3 s 25.1-36.5 Apr 23, 2024 01:20 PM [facility] COMPREHENSIVE METABOLIC PANEL+MG Specimen Type: PLASMA No comment entered. Ordering Provider: AARON VICTOR Report Released Date/Time: Apr 23, 2024 12:05 PM Reporting Lab: [facility] [address] Performing Lab: [facility] [address] CREATININE 0.7 mg/dL 0.7-1.2 UREA NITROGEN 19 [...] >90 >60 Apr 23, 2024 01:20 PM [facility] CBC & DIFF Specimen Type: BLOOD Comment: Automated Differential Performed Ordering Provider: AARON VICTOR Report Released Date/Time: Apr 23, 2024 12:05 PM Reporting Lab: [facility] [address] Performing Lab: [facility] [address] WBC 12.50 10*3/uL H 4.0-11.0 RBC 4.07 [...] 10*3/uL 0-0.1 Apr 21, 2024 07:28 AM [facility] URINALYSIS Specimen Type: URINE No comment entered. Ordering Provider: ANANDA HUGGINS Report Released Date/Time: Apr 21, 2024 07:37 AM Reporting Lab: [facility] [address] Performing Lab: [facility] [address] URINE COLOR COLORLESS SPECIFIC GRAVITY 1.009 1.003-1.03 [...] 2024 01:59 PM 211.1 30 [place] [facility] Social History: Smoking Status (Most current) and Tobacco Use (All prior to encounter date) This section includes the most current, and the historical, smoking and tobacco- related health factors from the [place] facility where the Encounter took place. Current Smoking Status This section includes the most current smoking, or tobacco-related health factor, from the [place] facility where the Encounter took place. Date/Time Current Smoking Status Comment Facil ity May 06, 2023 11:30 AM 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 [facility] Tobacco Use History This section includes a history of the smoking, or tobacco-related health factors, that were collected on or before the date of the Encounter. The data comes from the [place] facility where the Encounter took place. Date/Time Smoking Status/Tobacco Use Comment F acility May 06, 2023 11:30 AM VA-TOBACCO QUIT 15 YRS OR MORE [facility] Jun 04, 2022 09:00 AM 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 [facility] Jun 04, 2022 09:00 AM VA-TOBACCO QUIT 15 YRS OR MORE [facility] Jul 10, 2021 08:00 AM 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 [facility] Jul 10, 2021 08:00 AM VA-TOBACCO QUIT 5 TO < 15 YRS [facility] May 23, 2020 08:30 AM 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 [facility] May 23, 2020 08:30 AM VA-TOBACCO QUIT 5 TO < 15 YRS [facility] Mar 20, 2019 04:03 PM 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 [facility] Mar 20, 2019 04:03 PM VA-TOBACCO QUIT 5 TO < 15 YRS [facility] Mar 21, 2018 08:13 AM FORMER TOBACCO USER 7Y OR GREATE R [facility] Feb 24, 2017 09:24 AM FORMER TOBACCO USER 7Y OR GREATE R [facility] January 07, 2016 08:01 AM FORMER TOBACCO USE >1Y <7Y [facility] Feb 03, 2015 07:58 AM FORMER TOBACCO USE <1Y [facility] Feb 26, 2014 08:41 AM CURRENT TOBACCO USER [facility] May 13, 2011 01:45 PM CURRENT TOBACCO USER [facility] Advance Directives: All historical and current Section Date Range: From patient's date of to the date document was created. This section includes ALL of a patient's completed or amended [place] Advance and Rescinded Directives. The entries below indicate that a directive exists for the patient, but an actual copy is not included with this document. The data comes from all [facility]. Date Advance Directives Provider Source Mar 23, 2016 CLINICAL WARNING TIM TERAN CARLOSEDUARDO LOZANO [facility] Radiology Reports: +/- 30 days [...] the Encounter. The data comes from all [place] treatment facilities. Date/Time Radiology Report Provider Source Apr 24, 2024 02:13 PM ABSCESS DRAIN PLAC EMENT PERITONEAL (P): FLACA WEAVER [id number] -1950 M Exm Date: APR 24, 2024@14:13 Req Phys: TAURUS WOOD Loc: 04-24-2024@16:07 Img Loc: INTERVENTIONAL RADIOLOGY Service: PRIMARY [place] [address] (Case [id number] COMPLETE) IR PERITONEAL/RETROPERITONEAL PER(ANI Detailed) CPT:98700 Reason for Study: diverticular abscess Clinical History: [...] any questions or notifications of critical findings: [phone] If ordering provider is a trainee, enter the name and contact information of the responsible staff physician. Palmira Graves MD LAST CREATININE 0.7 (04/23/24) Report Status: Verified Date Reported: APR 24, 2024 Date Verified: APR 24, 2024 Boom Pump Operator E-Sig:/ES/SADIA DEE MD Report: PROCEDURES: Placement [...] anesthesia. Using real-time CT fluoroscopy, a 5 Moldovan Yueh catheter was advanced into the collection in the left lower quadrant. A wire was coiled in the collection. The tract into the collection was dilated to accommodate the 12 Moldovan locking pigtail drainage catheter. The catheter was secured to the skin with monofilament suture and connected to JUAN bulb suction. Impression: Successful placement of a 12 Moldovan locking pigtail drainage catheter in the left lower quadrant abscess. This catheter is connected to JUAN bulb suction with flushes, as ordered. I, SADIA DEE, have reviewed the images and report. Primary Interpreting Staff: SADIA DEE MD, RADIOLOGIST (Boom Pump Operator) Primary Interpreting Resident: JEFFREY FLOWER MD, MEDICAL COLLECTIONS REPRESENTATIVE /SADIA SNYDER [facility] Apr 24, 2024 02:[address] NEEDLE PLACEMEN T (P): FLACA WEAVER [id number] -1950 M Ex Date: APR 24, 2024@14:11 Req Phys: TAURUS WOOD Loc: 04-24-2024@16:07 Img Loc: CT IMAGING Service: PRIMARY [place] [address] (Case [id number] COMPLETE) CT SCAN FOR NEEDLE PLACEMENT (CT Detailed) CPT:24793 Reason for Study: diverticular abscess Clinical History: Report Status: Verified Date Reported: APR 24, 2024 Date Verified: APR 24, 2024 Boom Pump Operator E-Sig:/ES/SADIA DEE MD Report: PROCEDURES: Placement [...] anesthesia. Using real-time CT fluoroscopy, a 5 Moldovan Yueh catheter was advanced into the collection in the left lower quadrant. A wire was coiled in the collection. The tract into the collection was dilated to accommodate the 12 Moldovan locking pigtail drainage catheter. The catheter was secured to the skin with monofilament suture and connected to JUAN bulb suction. Impression: Successful placement of a 12 Moldovan locking pigtail drainage catheter in the left lower quadrant abscess. This catheter is connected to JUAN bulb suction with flushes, as ordered. I, SADIA DEE, have reviewed the images and report. Primary Interpreting Staff: SADIA DEE MD, RADIOLOGIST (Boom Pump Operator) Primary Interpreting Resident: JEFFREY FLOWER MD, MEDICAL COLLECTIONS REPRESENTATIVE /SADIA SNYDER [facility] Apr 23, 2024 06:[address] ABDOMEN/ PELVIS: FLACA WEAVER [id number] -1950 M Ex Date: APR 23, 2024@06:36 Req Phys: MCKAY VICTOR Pat Loc: 04-24-2024@10:25 Img Loc: OUTSOURCE CT Service: Unknown (Case [id number] COMPLETE) NON [facility] CT ABDOMEN/PELVIS (CT Detailed) CPT:22389 Reason for Study: OUTSIDE STUDY Clinical History: OUTSIDE STUDY Report Status: Electronically Filed Date Reported: APR 24, 2024 Report: This is an outside Imaging study and/or report imported for continuity of patient care. This Imaging study and/or report was not reviewed or verified by a [place] Radiologist. Impression: This is an outside Imaging study and/or report imported for continuity of patient care. This Imaging study and/or report was not reviewed or verified by a [place] Radiologist. Primary Diagnostic Code: VERIFIED BY: / *ELECTRONICALLY FILED* [facility] Pathology Reports: +/- 30 days of the [...] the Encounter. The data comes from all [place] treatment facilities. Date/Time Pathology Report Provider Source Apr 21, 2024 07:28 AM LR MICROBIOLOGY RE PORT: Reporting Lab: [facility] [CLIA# [id number]] [place] [address] Accession [UID]: [id number] [[id number]] Received: Apr 21, 2024@08:16 Collection sample: URINE Collection date: Apr 21, 2024 07:28 Provider: ANANDA HUGGINS Comment on specimen: RECEIVED IN STERILE CUP Test(s) ordered: CULTURE & SUSCEPTIBILITY...... completed: Apr 22, 2024 * BACTERIOLOGY FINAL REPORT => Apr 22, 2024 08:38 TECH CODE: [id number] CULTURE RESULTS: NO GROWTH 24 HOURS Bacteriology Remark(s): THIS REPORT IS FINAL =--=--=--=--=--=--=--=--=--=--=--=- -=--=--=--=--=--=--=--=--=--=--=--= --=--=-- Performing Laboratory: Bacteriology Report Performed By: [facility] [CLIA# [id number]] [address] [place] [address] [facility] Encounter Notes: All associated encounter notes This section contains the clinical notes associated to the Encounter. Date/Time Encounter Note(s) Provider Source Apr 23, 2024 08:24 AM CLERK OPERATOR REFER RAL NOTE: LOCAL TITLE: INTERFACILITY REFERRAL GAMING FLOOR SUPERVISOR. TRANSFER NOTE STANDARD TITLE: CLERK OPERATOR REFERRAL NOTE DATE OF NOTE: APR 23, 2024@08:24 ENTRY DATE: APR 23, 2024@08:24:52 AUTHOR: BRIDGETTE ZAZUETA EXP COSIGNER: URGENCY: STATUS: COMPLETED PATIENT ADDRESS: [address] [place] [id number] PHONE: NEXT OF KIN Name/Address: XAVI WEAVER [facility] [address] Patient Elig: PRIMARY ELIGIBILTY CODE - [facility] Disabilities (If Applicable): RATED DISABILITIES - NONE FOUND Travel not authorized Patient/guardian consents to transfer. Referring physician certifies that benefit of transfer outways risk. To: [facility] From: Other Site: [facility] -------- Requested Date/Time: APR 23, 2024 08:24 Planned Arrival Date/Time: Mar@10:12.00 Current PCP: Primary Care Team: MSP PACT IRIS *WH* Primary Care Provider: JATINDER BENITEZ No Associate Provider Assigned. Sending Facility Provider/Title/Pager: Dr Covarrubias [phone] Nursing ED [phone] Accepting Facility Provider/Designee/Pager: Dr Maricel Quijano [phone] Diagnosis: Diverticulitis abscess along with fistula Reason for Referral/Assessment: Needs Med Surg Bed with surgery Advance Directive: NO SUMMARY OF CARE: Allergies: TERAZOSIN (Mar 13, 2015) Vital Signs: Temp: 98 B.P. 110/66 Pulse: 74 Resp: 16 02 Sats: 100 on room air. Code Status:Full Interventions done at the Referring Facility: Labs: WBC 19. Lactate 2.7, CRP 18, K+ 2.4, Urine Culture + Blood Culture X 1 X-rays: 7.2X4cm abscess EKG: Medications Administered: Potassium, Zosyn IV Fluid/O2 Administered: 1L IVF Independent in Cares: Yes Medically Stable: YES Behaviorally Stable: YES History of violence or agitation No Surgically Stable: Yes PATIENT RISK ASSESSMENT 1. Cognitive impairment present: No 2. At risk for wandering: No 3. Potential danger to self and/or others: No 4. Falls risk: No Level of Care Prior to Transfer: ER Level of Care Required at Receiving Site: Medical Unit, Surgical Unit Mode of Transfer: BLS Ambulance /es/ BRIDGETTE CHRISTIANSON RN Community Etcher Hand Signed: 04/23/2024 08:58 BRIDGETTE ZAZUETA [facility]
--- OUTSIDE RECORDS SUMMARY | 2024-05-04 01:01 | XMS_ITS ---
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 Date/Time Encounter Type Encounter Description Reason Pro vider Source Apr 23, 2024 01:49 PM Inpatient Visit DAILY HOSPITALIZATION DATA [facility] Encounter Template Text not used by [place] Plan of Treatment: Future Appointments (+ 6 months) and Future Tests (+/- 45 days) The Plan of Treatment section includes future care activities for the patient from all [place] treatmentfacilities. This section includes future appointments and [...] 02:30 PM AMBULATORY - NONE [facility] May 02, 2024 10:00 AM [facility] May 04, 2024 09:00 AM [facility] May 07, 2024 08:45 AM [facility] May 08, 2024 02:00 [facility] May 09, 2024 07:30 AM [facility] May 15, 2024 08:30 AM AMBULATORY - MEDICINE [facility] Active, Pending, and Scheduled Orders This section includes a listing of several types of active, pending, and scheduled orders, including clinic medications orders, diagnostic test orders, procedure orders and consult orders; where the start date of the order is 45 days before the date of the Encounter or 45 days after the date of theEncounter. The data comes from all [place] treatment facilities. Test Date/Time Test Type Test Details Facility Name Apr 26, 2024 10:10 AM Laboratory - Microbiology Order CULTURE & SUSCEPTIBILITY WOUND OTHER WC ONCE ~For Test: CULTURE & SUSCEPTIBILITY ~Culture sample from JUAN drain output [facility] Apr 26, 2024 10:10 AM Laboratory - Microbiology Order GRAM STAIN WOUND OTHER WC ONCE ~For Test: GRAM STAIN ~JUAN drain culture/gram stain [facility] Apr 27, 2024 02:30 PM Imaging - Ultrasound Order US AORTA (P) [facility] May 04, 2024 12:00 AM Laboratory - Chemistry Order BASIC METABOLIC PANEL+MG PLASMA SP ONCE [facility] May 08, 2024 02:00 PM Imaging - CT Scan Order CT (AP) ABDOMEN/PELVIS (P) LISANDRO [facility] Lab Results: +/- 30 days of the encounter This section includes the Chemistry and Hematology Lab Results on record with [place] for the patient. Radiology Reports and Pathology Reports are provided separately, in subsequent sections. Lab Results This section contains the Chemistry/Hematology Results that were resulted 30 days before or 30 daysafter the date of the Encounter. Date/Time Source Result Type Result - Unit Interpretation Reference Range Comment Apr 26, 2024 07:16 AM [facility] BASIC METABOLIC PANEL+MG Specimen Type: PLASMA No comment entered. Ordering Provider: JONO RANDOLPH Report Released Date/Time: Apr 25, 2024 02:50 PM Reporting Lab: [facility] [phone] Performing Lab: [facility] [phone] CREATININE 0.7 mg/dL 0.7-1.2 UREA NITROGEN 15 mg/dL 8-26 GLUCOSE 106 mg/dL H 70-100 SODIUM 139 mmol/L 136-145 POTASSIUM 3.4 mmol/L L 3.5-5.1 CHLORIDE 105 mmol/L 98-107 CO2 25 mmol/L 22-29 CALCIUM 8.5 mg/dL 8.4-10.2 MAGNESIUM 2.2 mg/dL 1.6-2.6 ANION GAP 9 mmol/L 5-15 .CREAT EGFR(CKD-EPI) >90 >60 Apr 25, 2024 05:10 PM [facility] BASIC METABOLIC PANEL+MG Specimen Type: PLASMA No comment entered. Ordering Provider: GIOVANNI ADLER Report Released Date/Time: Apr 25, 2024 05:04 PM Reporting Lab: [facility] [address] Performing Lab: [facility] [address] CREATININE 0.7 mg/dL 0.7-1.2 UREA NITROGEN 15 mg/dL 8-26 GLUCOSE 104 mg/dL H 70-100 SODIUM 139 mmol/L 136-145 POTASSIUM 3.2 mmol/L L 3.5-5.1 CHLORIDE 103 mmol/L 98-107 CO2 28 mmol/L 22-29 CALCIUM 8.5 mg/dL 8.4-10.2 MAGNESIUM 2.2 mg/dL 1.6-2.6 ANION GAP 8 mmol/L 5-15 .CREAT EGFR(CKD-EPI) >90 >60 Apr 25, 2024 07:46 AM [facility] BASIC METABOLIC PANEL+MG Specimen Type: PLASMA No comment entered. Ordering Provider: GIOVANNI ADLER Report Released Date/Time: Apr 24, 2024 12:37 PM Reporting Lab: [facility] [address] Performing Lab: [facility] [address] CREATININE 0.7 mg/dL 0.7-1.2 UREA NITROGEN 14 mg/dL 8-26 GLUCOSE 127 mg/dL H 70-100 SODIUM 139 mmol/L 136-145 POTASSIUM 2.9 mmol/L L 3.5-5.1 CHLORIDE 101 mmol/L 98-107 CO2 29 mmol/L 22-29 CALCIUM 8.7 mg/dL 8.4-10.2 MAGNESIUM 2.3 mg/dL 1.6-2.6 ANION GAP 9 mmol/L 5-15 .CREAT EGFR(CKD-EPI) >90 >60 Apr 24, 2024 04:42 PM [facility] BASIC METABOLIC PANEL+MG Specimen Type: PLASMA No comment entered. Ordering Provider: GIOVANNI ADLER Report Released Date/Time: Apr 24, 2024 12:37 PM Reporting Lab: [facility] [address] Performing Lab: [facility] [address] CREATININE 0.7 mg/dL 0.7-1.2 UREA NITROGEN 16 mg/dL 8-26 GLUCOSE 97 mg/dL 70-100 SODIUM 138 mmol/L 136-145 POTASSIUM 2.7 mmol/L L 3.5-5.1 CHLORIDE 99 mmol/L 98-107 CO2 30 mmol/L H 22-29 CALCIUM 8.4 mg/dL 8.4-10.2 MAGNESIUM 2.1 mg/dL 1.6-2.6 ANION GAP 9 mmol/L 5-15 .CREAT EGFR(CKD-EPI) >90 >60 Apr 24, 2024 07:36 AM [facility] BASIC METABOLIC PANEL+MG Specimen Type: PLASMA Comment: Critical Value Reported To: Cait Zamorano RN 04-24-24@08[facility]. Critical value report confirmed. Ordering Provider: AARON VICTOR Report Released Date/Time: Apr 23, 2024 05:30 PM Reporting Lab: [facility] [address] Performing Lab: [facility] [address] CREATININE 0.7 mg/dL 0.7-1.2 UREA NITROGEN 16 mg/dL 8-26 GLUCOSE 105 mg/dL H 70-100 SODIUM 138 mmol/L 136-145 POTASSIUM 2.3 mmol/L LL 3.5-5.1 CHLORIDE 98 mmol/L 98-107 CO2 29 mmol/L 22-29 CALCIUM 8.3 mg/dL L 8.4-10.2 MAGNESIUM 2.2 mg/dL 1.6-2.6 ANION GAP 11 mmol/L 5-15 .CREAT EGFR(CKD-EPI) >90 >60 Apr 24, 2024 07:35 AM [facility] CBC & DIFF Specimen Type: BLOOD Comment: Automated Differential Performed Ordering Provider: AARON VICTOR Report Released Date/Time: Apr 23, 2024 05:30 PM Reporting Lab: [facility] [phone] Performing Lab: [facility] [address] WBC 10.49 10*3/uL 4.0-11.0 RBC 3.83 10*6/uL [...] 10*3/uL 0-0.1 Apr 23, 2024 01:20 PM [facility] LACTIC ACID Specimen Type: PLASMA No comment entered. Ordering Provider: AARON VICTOR Report Released Date/Time: Apr 23, 2024 12:05 PM Reporting Lab: [facility] [address] Performing Lab: [facility] [address] LACTIC ACID 1.5 mmol/L 0.5-2.2 Apr 23, 2024 01:20 PM [facility] ACT PART THROMBO TIME Specimen Type: PLASMA No comment entered. Ordering Provider: AARON VICTOR Report Released Date/Time: Apr 23, 2024 12:05 PM Reporting Lab: [facility] [address] Performing Lab: [facility] [address] APTT 29.3 s 25.1-36.5 Apr 23, 2024 01:20 PM [facility] PROTHROMBIN TIME/INR Specimen Type: PLASMA No comment entered. Ordering Provider: AARON VICTOR Report Released Date/Time: Apr 23, 2024 12:05 PM Reporting Lab: [facility] [address] Performing Lab: [facility] [address] .INR 1.2 H 0.8-1.1 .PT 14.5 s H 9.4-12.5 Apr 23, 2024 01:20 PM [facility] COMPREHENSIVE METABOLIC PANEL+MG Specimen Type: PLASMA No comment entered. Ordering Provider: AARON VICTOR Report Released Date/Time: Apr 23, 2024 12:05 PM Reporting Lab: [facility] [address] Performing Lab: [facility] [address] CREATININE 0.7 mg/dL 0.7-1.2 UREA NITROGEN 19 [...] >90 >60 Apr 23, 2024 01:20 PM [facility] CBC & DIFF Specimen Type: BLOOD Comment: Automated Differential Performed Ordering Provider: AARON VICTOR Report Released Date/Time: Apr 23, 2024 12:05 PM Reporting Lab: [facility] [address] Performing Lab: [facility] [address] WBC 12.50 10*3/uL H 4.0-11.0 RBC 4.07 [...] 10*3/uL 0-0.1 Apr 21, 2024 07:28 AM [facility] URINALYSIS Specimen Type: URINE No comment entered. Ordering Provider: ANANDA HUGGINS Report Released Date/Time: Apr 21, 2024 07:37 AM Reporting Lab: [facility] [address] Performing Lab: [facility] [address] URINE COLOR COLORLESS SPECIFIC GRAVITY 1.009 1.003-1.03 [...] 2024 01:59 PM 211.1 30 [place] [facility] Social History: Smoking Status [...] QUIT 15 YRS OR MORE [facility] Tobacco Use History This section [...] this document. The data comes from all [facility]. Date Advance Directives Provider Source Mar 23, 2016 CLINICAL WARNING TIM TERAN CARLOSEDUARDO LOZANO [facility] Radiology Reports: +/- 30 [...] comes from all [place] treatment facilities. Date/Time Radiology Report Provider Source Apr 24, 2024 02:13 PM ABSCESS DRAIN PLAC EMENT PERITONEAL (P): FLACA WEAVER [id number] -1950 M Exm Date: APR 24, 2024@14:13 Req Phys: TAURUS WOOD Loc: 3KS/04-24-2024@16:07 Img Loc: INTERVENTIONAL RADIOLOGY Service: PR[place] [address] (Case [id number] COMPLETE) IR PERITONEAL/RETROPERITONEAL PER(ANI Detailed) CPT:70702 Reason for Study: diverticular abscess Clinical History: [...] any questions or notifications of critical findings: [id number] If ordering provider is a trainee, enter the name and contact information of the responsible staff physician. Palmira Graves MD [facility] CREATININE 0.7 (04/23/24) Report Status: Verified Date Reported: APR 24, 2024 Date Verified: APR 24, 2024 Spinning Frame Fixer E-Sig:/ES/SADIA DEE MD Report: PROCEDURES: Placement of [...] anesthesia. Using real-time CT fluoroscopy, a 5 Malian Yueh catheter was advanced into the collection in the left lower quadrant. A wire was coiled in the collection. The tract into the collection was dilated to accommodate the 12 Malian locking pigtail drainage catheter. The catheter was secured to the skin with monofilament suture and connected to JUAN bulb suction. Impression: Successful placement of a 12 Malian locking pigtail drainage catheter in the left lower quadrant abscess. This catheter is connected to JUAN bulb suction with flushes, as ordered. I, SADIA DEE, have reviewed the images and report. Primary Interpreting Staff: SADIA DEE MD, RADIOLOGIST (Spinning Frame Fixer) Primary Interpreting Resident: JEFFREY FLOWER MD, TICKET CHOPPER ASSEMBLER /SADIA SNYDER [facility] Apr 24, 2024 02:[address] NEEDLE PLACEMEN T (P): LFACA WEAVER [id number] -1950 M Exm Date: APR 24, 2024@14:11 Req Phys: TAURUS WOODE Amanda Loc: 3K04-24-2024@16:07 Img Loc: CT IMAGING Service: [place] [address] (Case [id number] COMPLETE) CT SCAN FOR NEEDLE PLACEMENT (CT Detailed) CPT:13308 Reason for Study: diverticular abscess Clinical History: Report Status: Verified Date Reported: APR 24, 2024 Date Verified: APR 24, 2024 Spinning Frame Fixer E-Sig:/ES/SADIA DEE MD Report: PROCEDURES: Placement of [...] anesthesia. Using real-time CT fluoroscopy, a 5 Malian Yueh catheter was advanced into the collection in the left lower quadrant. A wire was coiled in the collection. The tract into the collection was dilated to accommodate the 12 Malian locking pigtail drainage catheter. The catheter was secured to the skin with monofilament suture and connected to JUAN bulb suction. Impression: Successful placement of a 12 Malian locking pigtail drainage catheter in the left lower quadrant abscess. This catheter is connected to JUAN bulb suction with flushes, as ordered. I, SADIA DEE, have reviewed the images and report. Primary Interpreting Staff: SADIA DEE MD, RADIOLOGIST (Spinning Frame Fixer) Primary Interpreting Resident: JEFFREY FLOWER MD, TICKET CHOPPER ASSEMBLER /SADIA SNYDER [facility] Apr 23, 2024 06:[address] ABDOMEN/ PELVIS: FLACA WEAVER [id number] -1950 M Exm Date: APR 23, 2024@06:36 Req Phys: MCKAY VICTOR Pat Loc: 04-24-2024@10:25 Img Loc: OUTSOURCE CT Service: Unknown (Case [id number] COMPLETE) NON [facility] CT ABDOMEN/PELVIS (CT Detailed) CPT:36681 Reason for Study: OUTSIDE STUDY Clinical History: OUTSIDE STUDY Report Status: Electronically Filed Date Reported: APR 24, 2024 Report: This is an outside Imaging study and/or report imported for continuity of patient care. This Imaging study and/or report was not reviewed or verified by a [place] Radiologist. Impression: This is an outside Imaging study and/or report imported for continuity of patient care. This Imaging study and/or report was not reviewed or verified by a [place] Radiologist. Primary Diagnostic Code: VERIFIED BY: / *ELECTRONICALLY FILED* [facility] Pathology Reports: +/- 30 days of the [...] AM LR MICROBIOLOGY RE PORT: Reporting Lab: [facility] [CLIA# [id number]] [place] [address] Accession [UID]: [id number] [[id number]] Received: Apr 21, 2024@08:16 Collection sample: URINE Collection date: Apr 21, 2024 07:28 Provider: ANANDA HUGGINS Comment on specimen: RECEIVED IN STERILE CUP Test(s) ordered: CULTURE & SUSCEPTIBILITY...... completed: Apr 22, 2024 * BACTERIOLOGY FINAL REPORT => Apr 22, 2024 08:38 TECH CODE: [id number] CULTURE RESULTS: NO GROWTH 24 HOURS Bacteriology Remark(s): THIS REPORT IS FINAL =--=--=--=--=--=--=--=--=--=--=--=- -=--=--=--=--=--=--=--=--=--=--=--= --=--=-- Performing Laboratory: Bacteriology Report Performed By: [facility] [CLIA# [id number]] [place] [address] [facility]
--- OUTSIDE RECORDS SUMMARY | 2024-05-04 01:01 | XMS_ITS ---
[place] DAILY HOSPITALIZATION DATA [facility] Encounter Summary Created on: May 03, 2024 FLACA WEAVER : 1950 Sex: Male Author Name [facility] [place] [facility] [place] Address [address] [place] [address] Care Team Providers Care Hot Strip Finisher Name Role Phone JATINDER BENITEZ Primary Care [...] PART A Sep 29, 2016 PART A [phone] JUDY WEAVER PATIENT Selected Encounter This section includes the information on record at [place] for the Encounter. Date/Time Encounter Type Encounter Description Reason Pro vider Source Apr 23, 2024 11:40 AM Inpatient Visit DAILY HOSPITALIZATION DATA [facility] Encounter Template Text not used by [place] Plan of Treatment: Future Appointments (+ 6 months) and Future Tests (+/- 45 days) The Plan of Treatment section includes future care activities for the patient from all [place] treatmentfacilities. This section includes future appointments and future orders which are active, pending or scheduled. Future Appointments This section includes appointments that were scheduled to occur 6 months from the date of the Encounter, up to a maximum of 20 appointments. The data comes from all [place] treatment facilities. Appointment Date/Time Appointment Type Appointme nt Facility Name Apr 27, 2024 02:30 PM AMBULATORY - NONE [facility] May 02, 2024 10:00 AM AMBULATORY - SURG[facility] May 04, 2024 09:00 AM [facility] May 07, 2024 08:45 AM [facility] May 08, 2024 02:00 PM [facility] May 09, 2024 07:30 AM AMBULATORY - SUR[facility] May 15, 2024 08:30 AM AMBULATORY - MEDICINE [facility] Active, Pending, and Scheduled Orders This section includes a listing of several types of active, pending, and scheduled orders, including clinic medications orders, diagnostic test orders, procedure orders and consult orders; where the start date of the order is 45 days before the date of the Encounter or 45 days after the date of theEncounter. The data comes from all [place] treatment facilities. Test Date/Time Test Type Test Details Facility Name Apr 26, 2024 10:10 AM Laboratory - Microbiology Order CULTURE & SUSCEPTIBILITY WOUND OTHER WC ONCE ~For Test: CULTURE & SUSCEPTIBILITY ~Culture sample from JUAN drain output [facility] Apr 26, 2024 10:10 AM Laboratory - Microbiology Order GRAM STAIN WOUND OTHER WC ONCE ~For Test: GRAM STAIN ~JUAN drain culture/gram stain [facility] Apr 27, 2024 02:30 PM Imaging - Ultrasound Order US AORTA (P) [facility] May 04, 2024 12:00 AM Laboratory - Chemistry Order BASIC METABOLIC PANEL+MG PLASMA SP ONCE [facility] May 08, 2024 02:00 PM Imaging - CT Scan Order CT (AP) ABDOMEN/PELVIS (P) LISANDRO [facility] Lab Results: +/- 30 days of the encounter This section includes the Chemistry and Hematology Lab Results on record with [place] for the patient. Radiology Reports and Pathology Reports are provided separately, in subsequent sections. Lab Results This section contains the Chemistry/Hematology Results that were resulted 30 days before or 30 daysafter the date of the Encounter. Date/Time Source Result Type Result - Unit Interpretation Reference Range Comment Apr 26, 2024 07:16 AM [facility] BASIC METABOLIC PANEL+MG Specimen Type: PLASMA No comment entered. Ordering Provider: JONO RANDOLPH Report Released Date/Time: Apr 25, 2024 02:50 PM Reporting Lab: [facility] [phone] Performing Lab: [facility] [phone] CREATININE 0.7 mg/dL 0.7-1.2 UREA NITROGEN 15 mg/dL 8-26 GLUCOSE 106 mg/dL H 70-100 SODIUM 139 mmol/L 136-145 POTASSIUM 3.4 mmol/L L 3.5-5.1 CHLORIDE 105 mmol/L 98-107 CO2 25 mmol/L 22-29 CALCIUM 8.5 mg/dL 8.4-10.2 MAGNESIUM 2.2 mg/dL 1.6-2.6 ANION GAP 9 mmol/L 5-15 .CREAT EGFR(CKD-EPI) >90 >60 Apr 25, 2024 05:10 PM [facility] BASIC METABOLIC PANEL+MG Specimen Type: PLASMA No comment entered. Ordering Provider: GIOVANNI ADLER Report Released Date/Time: Apr 25, 2024 05:04 PM Reporting Lab: [facility] [phone] Performing Lab: [facility] [address] CREATININE 0.7 mg/dL 0.7-1.2 UREA NITROGEN 15 mg/dL 8-26 GLUCOSE 104 mg/dL H 70-100 SODIUM 139 mmol/L 136-145 POTASSIUM 3.2 mmol/L L 3.5-5.1 CHLORIDE 103 mmol/L 98-107 CO2 28 mmol/L 22-29 CALCIUM 8.5 mg/dL 8.4-10.2 MAGNESIUM 2.2 mg/dL 1.6-2.6 ANION GAP 8 mmol/L 5-15 .CREAT EGFR(CKD-EPI) >90 >60 Apr 25, 2024 07:46 AM [facility] BASIC METABOLIC PANEL+MG Specimen Type: PLASMA No comment entered. Ordering Provider: GIOVANNI ADLER Report Released Date/Time: Apr 24, 2024 12:37 PM Reporting Lab: [facility] [address] Performing Lab: [facility] [address] CREATININE 0.7 mg/dL 0.7-1.2 UREA NITROGEN 14 mg/dL 8-26 GLUCOSE 127 mg/dL H 70-100 SODIUM 139 mmol/L 136-145 POTASSIUM 2.9 mmol/L L 3.5-5.1 CHLORIDE 101 mmol/L 98-107 CO2 29 mmol/L 22-29 CALCIUM 8.7 mg/dL 8.4-10.2 MAGNESIUM 2.3 mg/dL 1.6-2.6 ANION GAP 9 mmol/L 5-15 .CREAT EGFR(CKD-EPI) >90 >60 Apr 24, 2024 04:42 PM [facility] BASIC METABOLIC PANEL+MG Specimen Type: PLASMA No comment entered. Ordering Provider: GIOVANNI ADLER Report Released Date/Time: Apr 24, 2024 12:37 PM Reporting Lab: [facility] [phone] Performing Lab: [facility] [phone] CREATININE 0.7 mg/dL 0.7-1.2 UREA NITROGEN 16 mg/dL 8-26 GLUCOSE 97 mg/dL 70-100 SODIUM 138 mmol/L 136-145 POTASSIUM 2.7 mmol/L L 3.5-5.1 CHLORIDE 99 mmol/L 98-107 CO2 30 mmol/L H 22-29 CALCIUM 8.4 mg/dL 8.4-10.2 MAGNESIUM 2.1 mg/dL 1.6-2.6 ANION GAP 9 mmol/L 5-15 .CREAT EGFR(CKD-EPI) >90 >60 Apr 24, 2024 07:36 AM [facility] BASIC METABOLIC PANEL+MG Specimen Type: PLASMA Comment: Critical Value Reported To: Cait Zamorano RN 04-24-24@08[facility]. Critical value report confirmed. Ordering Provider: AARON VICTOR Report Released Date/Time: Apr 23, 2024 05:30 PM Reporting Lab: [facility] [phone] Performing Lab: [facility] [address] CREATININE 0.7 mg/dL 0.7-1.2 UREA NITROGEN 16 mg/dL 8-26 GLUCOSE 105 mg/dL H 70-100 SODIUM 138 mmol/L 136-145 POTASSIUM 2.3 mmol/L LL 3.5-5.1 CHLORIDE 98 mmol/L 98-107 CO2 29 mmol/L 22-29 CALCIUM 8.3 mg/dL L 8.4-10.2 MAGNESIUM 2.2 mg/dL 1.6-2.6 ANION GAP 11 mmol/L 5-15 .CREAT EGFR(CKD-EPI) >90 >60 Apr 24, 2024 07:35 AM [facility] CBC & DIFF Specimen Type: BLOOD Comment: Automated Differential Performed Ordering Provider: AARON VICTOR Report Released Date/Time: Apr 23, 2024 05:30 PM Reporting Lab: [facility] [phone] Performing Lab: [facility] [address] WBC 10.49 10*3/uL 4.0-11.0 RBC 3.83 10*6/uL [...] 10*3/uL 0-0.1 Apr 23, 2024 01:20 PM [facility] LACTIC ACID Specimen Type: PLASMA No comment entered. Ordering Provider: AARON VICTOR Report Released Date/Time: Apr 23, 2024 12:05 PM Reporting Lab: [facility] [address] Performing Lab: [facility] [address] LACTIC ACID 1.5 mmol/L 0.5-2.2 Apr 23, 2024 01:20 PM [facility] PROTHROMBIN TIME/INR Specimen Type: PLASMA No comment entered. Ordering Provider: AARON VICTOR Report Released Date/Time: Apr 23, 2024 12:05 PM Reporting Lab: [facility] [address] Performing Lab: [facility] [address] .INR 1.2 H 0.8-1.1 .PT 14.5 s H 9.4-12.5 Apr 23, 2024 01:20 PM [facility] ACT PART THROMBO TIME Specimen Type: PLASMA No comment entered. Ordering Provider: AARON VICTOR Report Released Date/Time: Apr 23, 2024 12:05 PM Reporting Lab: [facility] [address] Performing Lab: [facility] [address] APTT 29.3 s 25.1-36.5 Apr 23, 2024 01:20 PM [facility] COMPREHENSIVE METABOLIC PANEL+MG Specimen Type: PLASMA No comment entered. Ordering Provider: AARON VICTOR Report Released Date/Time: Apr 23, 2024 12:05 PM Reporting Lab: [facility] [address] Performing Lab: [facility] [address] CREATININE 0.7 mg/dL 0.7-1.2 UREA NITROGEN 19 [...] >90 >60 Apr 23, 2024 01:20 PM [facility] CBC & DIFF Specimen Type: BLOOD Comment: Automated Differential Performed Ordering Provider: AARON VICTOR Report Released Date/Time: Apr 23, 2024 12:05 PM Reporting Lab: [facility] [address] Performing Lab: [facility] [address] WBC 12.50 10*3/uL H 4.0-11.0 RBC 4.07 [...] 10*3/uL 0-0.1 Apr 21, 2024 07:28 AM [facility] URINALYSIS Specimen Type: URINE No comment entered. Ordering Provider: ANANDA HUGGINS Report Released Date/Time: Apr 21, 2024 07:37 AM Reporting Lab: [facility] [address] Performing Lab: [facility] [address] URINE COLOR COLORLESS SPECIFIC GRAVITY 1.009 1.003-1.03 [...] 2024 01:59 PM 211.1 30 [place] [facility] Social History: Smoking Status (Most current) and Tobacco Use (All prior to encounter date) This section includes the most current, and the historical, smoking and tobacco- related health factors from the [place] facility where the Encounter took place. Current Smoking Status This section includes the most current smoking, or tobacco-related health factor, from the [place] facility where the Encounter took place. Date/Time Current Smoking Status Comment Facil ity May 06, 2023 11:30 AM VA-TOBACCO QUIT 15 YRS OR MORE [facility] Tobacco Use History This section includes a history of the smoking, or tobacco-related health factors, that were collected on or before the date of the Encounter. The data comes from the [place] facility where the Encounter took place. Date/Time Smoking Status/Tobacco Use Comment F acility May 06, 2023 11:30 AM VA-TOBACCO QUIT 15 YRS OR MORE [facility] Jun 04, 2022 09:00 AM 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 [facility] Jun 04, 2022 09:00 AM VA-TOBACCO QUIT 15 YRS OR MORE [facility] Jul 10, 2021 08:00 AM 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 [facility] Jul 10, 2021 08:00 AM VA-TOBACCO QUIT 5 TO < 15 YRS [facility] May 23, 2020 08:30 AM 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 [facility] May 23, 2020 08:30 AM VA-TOBACCO QUIT 5 TO < 15 YRS [facility] Mar 20, 2019 04:03 PM 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 [facility] Mar 20, 2019 04:03 PM VA-TOBACCO QUIT 5 TO < 15 YRS [facility] Mar 21, 2018 08:13 AM FORMER TOBACCO USER 7Y OR GREATE R [facility] Feb 24, 2017 09:24 AM FORMER TOBACCO USER 7Y OR GREATE R [facility] January 07, 2016 08:01 AM FORMER TOBACCO USE >1Y <7Y [facility] Feb 03, 2015 07:58 AM FORMER TOBACCO USE <1Y [facility] Feb 26, 2014 08:41 AM CURRENT TOBACCO USER [facility] May 13, 2011 01:45 PM CURRENT TOBACCO USER [facility] Advance Directives: All historical and current Section Date Range: From patient's date of to the date document was created. This section includes ALL of a patient's completed or amended [place] Advance and Rescinded Directives. The entries below indicate that a directive exists for the patient, but an actual copy is not included with this document. The data comes from all [facility]. Date Advance Directives Provider Source Mar 23, 2016 CLINICAL WARNING TIM TERAN CARLOS[facility]UARDO LOZANO [facility] Radiology Reports: +/- 30 days of the [...] the Encounter. The data comes from all [place] treatment facilities. Date/Time Radiology Report Provider Source Apr 24, 2024 02:13 PM ABSCESS DRAIN PLAC EMENT PERITONEAL (P): FLACA WEAVER [id number] -1950 M Exm Date: APR 24, 2024@14:13 Req Phys: TAURUS WOOD Loc: 3KS/04-24-2024@16:07 Img Loc: INTERVENTIONAL RADIOLOGY Service: PRIMARY CARE [place] [address] (Case [id number] COMPLETE) IR PERITONEAL/RETROPERITONEAL PER(ANI Detailed) CPT:39616 Reason for Study: diverticular abscess Clinical History: [...] any questions or notifications of critical findings: [id number] If ordering provider is a trainee, enter the name and contact information of the responsible staff physician. Palmira Graves MD LAST CREATININE 0.7 (04/23/24) Report Status: Verified Date Reported: APR 24, 2024 Date Verified: APR 24, 2024 Speech Pathologist E-Sig:/ES/SADIA DEE MD Report: PROCEDURES: Placement of [...] anesthesia. Using real-time CT fluoroscopy, a 5 Mozambican Yueh catheter was advanced into the collection in the left lower quadrant. A wire was coiled in the collection. The tract into the collection was dilated to accommodate the 12 Mozambican locking pigtail drainage catheter. The catheter was secured to the skin with monofilament suture and connected to JUAN bulb suction. Impression: Successful placement of a 12 Mozambican locking pigtail drainage catheter in the left lower quadrant abscess. This catheter is connected to JUAN bulb suction with flushes, as ordered. I, SADIA DEE, have reviewed the images and report. Primary Interpreting Staff: SADIA DEE MD, RADIOLOGIST (Speech Pathologist) Primary Interpreting Resident: JEFFREY FLOWER MD, CHANGE HOUSE ATTENDANT /SADIA SNYDER [facility] Apr 24, 2024 02:[address] NEEDLE PLACEMEN T (P): FLACA WEAVER [id number] -1950 M Exm Date: APR 24, 2024@14:11 Req Phys: TAURUS WOODE Amanda Loc: 3K04-24-2024@16:07 Img Loc: CT IMAGING Service: PRIMARY CARE [place] [address] (Case [id number] COMPLETE) CT SCAN FOR NEEDLE PLACEMENT (CT Detailed) CPT:84704 Reason for Study: diverticular abscess Clinical History: Report Status: Verified Date Reported: APR 24, 2024 Date Verified: APR 24, 2024 Speech Pathologist E-Sig:/ES/SADIA DEE MD Report: PROCEDURES: Placement of [...] anesthesia. Using real-time CT fluoroscopy, a 5 Mozambican Yueh catheter was advanced into the collection in the left lower quadrant. A wire was coiled in the collection. The tract into the collection was dilated to accommodate the 12 Mozambican locking pigtail drainage catheter. The catheter was secured to the skin with monofilament suture and connected to JUAN bulb suction. Impression: Successful placement of a 12 Mozambican locking pigtail drainage catheter in the left lower quadrant abscess. This catheter is connected to JUAN bulb suction with flushes, as ordered. I, SADIA DEE, have reviewed the images and report. Primary Interpreting Staff: SADIA DEE MD, RADIOLOGIST (Speech Pathologist) Primary Interpreting Resident: JEFFREY FLOWER MD, CHANGE HOUSE ATTENDANT /SADIA SNYDER [facility] Apr 23, 2024 06:[address] ABDOMEN/ PELVIS: FLACA WEAVER [id number] -1950 M Exm Date: APR 23, 2024@06:36 Req Phys: MCKAY VICTOR Pat Loc: 04-24-2024@10:25 Img Loc: OUTSOURCE CT Service: Unknown (Case [id number] COMPLETE) NON [facility] CT ABDOMEN/PELVIS (CT Detailed) CPT:85723 Reason for Study: OUTSIDE STUDY Clinical History: OUTSIDE STUDY Report Status: Electronically Filed Date Reported: APR 24, 2024 Report: This is an outside Imaging study and/or report imported for continuity of patient care. This Imaging study and/or report was not reviewed or verified by a [place] Radiologist. Impression: This is an outside Imaging study and/or report imported for continuity of patient care. This Imaging study and/or report was not reviewed or verified by a [place] Radiologist. Primary Diagnostic Code: VERIFIED BY: / *ELECTRONICALLY FILED* [facility] Pathology Reports: +/- 30 days of [...] the Encounter. The data comes from all [place] treatment facilities. Date/Time Pathology Report Provider Source Apr 21, 2024 07:28 AM LR MICROBIOLOGY RE PORT: Reporting Lab: [facility] [CLIA# [id number]] [place] [address] Accession [UID]: [id number] [[id number]] Received: Apr 21, 2024@08:16 Collection sample: URINE Collection date: Apr 21, 2024 07:28 Provider: ANANDA HUGGINS Comment on specimen: RECEIVED IN STERILE CUP Test(s) ordered: CULTURE & SUSCEPTIBILITY...... completed: Apr 22, 2024 * BACTERIOLOGY FINAL REPORT => Apr 22, 2024 08:38 TECH CODE: [id number] CULTURE RESULTS: NO GROWTH 24 HOURS Bacteriology Remark(s): THIS REPORT IS FINAL =--=--=--=--=--=--=--=--=--=--=--=- -=--=--=--=--=--=--=--=--=--=--=--= --=--=-- Performing Laboratory: Bacteriology Report Performed By: [facility] [CLIA# [id number]] [place] [address] [facility]
--- OUTSIDE RECORDS SUMMARY | 2024-05-04 01:01 | XMS_ITS | Encounter Summary ---
Author Name [facility] [facility] [place] Address [address] [place] [address] Care Team Providers Care Hop Farmer Name Role Phone JATINDER BENITEZ Primary Care [...] PART A Sep 29, 2016 PART A [phone] JUDY ROY PATIENT Selected Encounter This section includes the information on record at [place] for the Encounter. Date/Time Encounter Type Encounter Description Reason Provider Source Apr 23, 2024 08:00 AM Outpatient Encounter ADMIN PAT ACTIVTIES (MASNONCT) BRIDGETTE ZAZUETA Alex Encounter Template Text not used by [place] Plan of Treatment: Future Appointments (+ 6 months) and Future Tests (+/- 45 days) The Plan of Treatment section includes future care activities for the patient from all [place] treatmentfacilities. This section includes future appointments and future orders which are active, pending or scheduled. Future Appointments This section includes appointments that were scheduled to occur 6 months from the date of the Encounter, up to a maximum of 20 appointments. The data comes from all [facility] treatment facilities. Appointment Date/Time Appointment Type Appointme nt Facility Name Apr 27, 2024 02:30 PM AMBULATORY - NONE [facility] May 02, 2024 10:00 AM AMBULATORY - SURGERY [facility] May 04, 2024 09:00 AM AMBULATORY - NONE [facility] May 07, 2024 08:45 AM AMBULATORY - MEDICINE [facility] May 08, 2024 02:00 PM AMBULATORY - NONE [facility] May 09, 2024 07:30 AM AMBULATORY - SURGERY [facility] May 15, 2024 08:30 AM AMBULATORY - MEDICINE [facility] Active, Pending, and Scheduled Orders This section includes a listing of several types of active, pending, and scheduled orders, including clinic medications orders, diagnostic test orders, procedure orders and consult orders; where the start date of the order is 45 days before the date of the Encounter or 45 days after the date of theEncounter. The data comes from all [facility]. Test Date/Time Test Type Test Details Facility Name Apr 26, 2024 10:10 AM Laboratory - Microbiology Order CULTURE & SUSCEPTIBILITY WOUND OTHER WC ONCE ~For Test: CULTURE & SUSCEPTIBILITY ~Culture sample from JUAN drain output [facility] Apr 26, 2024 10:10 AM Laboratory - Microbiology Order GRAM STAIN WOUND OTHER WC ONCE ~For Test: GRAM STAIN ~JUAN drain culture/gram stain [facility] Apr 27, 2024 02:30 PM Imaging - Ultrasound Order US AORTA (P) [facility] May 04, 2024 12:00 AM Laboratory - Chemistry Order BASIC METABOLIC PANEL+MG PLASMA SP ONCE [facility] May 08, 2024 02:00 PM Imaging - CT Scan Order CT (AP) ABDOMEN/PELVIS (P) LISANDRO [facility] Lab Results: +/- 30 days of the encounter This section includes the Chemistry and Hematology Lab Results on record with [place] for the patient. Radiology Reports and Pathology Reports are provided separately, in subsequent sections. Lab Results This section contains the Chemistry/Hematology Results that were resulted 30 days before or 30 daysafter the date of the Encounter. Date/Time Source Result Type Result - Unit Interpretation Reference Range Comment Apr 26, 2024 07:16 AM [facility] BASIC METABOLIC PANEL+MG Specimen Type: PLASMA No comment entered. Ordering Provider: JONO RANDOLPH Report Released Date/Time: Apr 25, 2024 02:50 PM Reporting Lab: [facility] [phone] Performing Lab: [facility] [phone] CREATININE 0.7 mg/dL 0.7-1.2 UREA NITROGEN 15 mg/dL 8-26 GLUCOSE 106 mg/dL H 70-100 SODIUM 139 mmol/L 136-145 POTASSIUM 3.4 mmol/L L 3.5-5.1 CHLORIDE 105 mmol/L 98-107 CO2 25 mmol/L 22-29 CALCIUM 8.5 mg/dL 8.4-10.2 MAGNESIUM 2.2 mg/dL 1.6-2.6 ANION GAP 9 mmol/L 5-15 .CREAT EGFR(CKD-EPI) >90 >60 Apr 25, 2024 05:10 PM [facility] BASIC METABOLIC PANEL+MG Specimen Type: PLASMA No comment entered. Ordering Provider: GIOVANNI ADLER Report Released Date/Time: Apr 25, 2024 05:04 PM Reporting Lab: [facility] [phone] Performing Lab: [facility] [phone] CREATININE 0.7 mg/dL 0.7-1.2 UREA NITROGEN 15 mg/dL 8-26 GLUCOSE 104 mg/dL H 70-100 SODIUM 139 mmol/L 136-145 POTASSIUM 3.2 mmol/L L 3.5-5.1 CHLORIDE 103 mmol/L 98-107 CO2 28 mmol/L 22-29 CALCIUM 8.5 mg/dL 8.4-10.2 MAGNESIUM 2.2 mg/dL 1.6-2.6 ANION GAP 8 mmol/L 5-15 .CREAT EGFR(CKD-EPI) >90 >60 Apr 25, 2024 07:46 AM [facility] BASIC METABOLIC PANEL+MG Specimen Type: PLASMA No comment entered. Ordering Provider: GIOVANNI ADLER Report Released Date/Time: Apr 24, 2024 12:37 PM Reporting Lab: [facility] [phone] Performing Lab: [facility] [phone] CREATININE 0.7 mg/dL 0.7-1.2 UREA NITROGEN 14 mg/dL 8-26 GLUCOSE 127 mg/dL H 70-100 SODIUM 139 mmol/L 136-145 POTASSIUM 2.9 mmol/L L 3.5-5.1 CHLORIDE 101 mmol/L 98-107 CO2 29 mmol/L 22-29 CALCIUM 8.7 mg/dL 8.4-10.2 MAGNESIUM 2.3 mg/dL 1.6-2.6 ANION GAP 9 mmol/L 5-15 .CREAT EGFR(CKD-EPI) >90 >60 Apr 24, 2024 04:42 PM [facility] BASIC METABOLIC PANEL+MG Specimen Type: PLASMA No comment entered. Ordering Provider: GIOVANNI ADLER Report Released Date/Time: Apr 24, 2024 12:37 PM Reporting Lab: [facility] [phone] Performing Lab: [facility] [address] CREATININE 0.7 mg/dL 0.7-1.2 UREA NITROGEN 16 mg/dL 8-26 GLUCOSE 97 mg/dL 70-100 SODIUM 138 mmol/L 136-145 POTASSIUM 2.7 mmol/L L 3.5-5.1 CHLORIDE 99 mmol/L 98-107 CO2 30 mmol/L H 22-29 CALCIUM 8.4 mg/dL 8.4-10.2 MAGNESIUM 2.1 mg/dL 1.6-2.6 ANION GAP 9 mmol/L 5-15 .CREAT EGFR(CKD-EPI) >90 >60 Apr 24, 2024 07:36 AM [facility] BASIC METABOLIC PANEL+MG Specimen Type: PLASMA Comment: Critical Value Reported To: Cait Zamorano, RN 04-24-24@08[facility]. Critical value report confirmed. Ordering Provider: AARON VICTOR Report Released Date/Time: Apr 23, 2024 05:30 PM Reporting Lab: [facility] [phone] Performing Lab: [facility] [address] CREATININE 0.7 mg/dL 0.7-1.2 UREA NITROGEN 16 mg/dL 8-26 GLUCOSE 105 mg/dL H 70-100 SODIUM 138 mmol/L 136-145 POTASSIUM 2.3 mmol/L LL 3.5-5.1 CHLORIDE 98 mmol/L 98-107 CO2 29 mmol/L 22-29 CALCIUM 8.3 mg/dL L 8.4-10.2 MAGNESIUM 2.2 mg/dL 1.6-2.6 ANION GAP 11 mmol/L 5-15 .CREAT EGFR(CKD-EPI) >90 >60 Apr 24, 2024 07:35 AM [facility] CBC & DIFF Specimen Type: BLOOD Comment: Automated Differential Performed Ordering Provider: AARON VICTOR Report Released Date/Time: Apr 23, 2024 05:30 PM Reporting Lab: [facility] [phone] Performing Lab: [facility] [address] WBC 10.49 10*3/uL 4.0-11.0 RBC 3.83 10*6/uL [...] 10*3/uL 0-0.1 Apr 23, 2024 01:20 PM [facility] LACTIC ACID Specimen Type: PLASMA No comment entered. Ordering Provider: AARON VICTOR Report Released Date/Time: Apr 23, 2024 12:05 PM Reporting Lab: [facility] [address] Performing Lab: [facility] [address] LACTIC ACID 1.5 mmol/L 0.5-2.2 Apr 23, 2024 01:20 PM [facility] PROTHROMBIN TIME/INR Specimen Type: PLASMA No comment entered. Ordering Provider: AARON VICTOR Report Released Date/Time: Apr 23, 2024 12:05 PM Reporting Lab: [facility] [phone] Performing Lab: [facility] [address] .INR 1.2 H 0.8-1.1 .PT 14.5 s H 9.4-12.5 Apr 23, 2024 01:20 PM [facility] ACT PART THROMBO TIME Specimen Type: PLASMA No comment entered. Ordering Provider: AARON VICTOR Report Released Date/Time: Apr 23, 2024 12:05 PM Reporting Lab: [facility] [phone] Performing Lab: [facility] [address] APTT 29.3 s 25.1-36.5 Apr 23, 2024 01:20 PM [facility] COMPREHENSIVE METABOLIC PANEL+MG Specimen Type: PLASMA No comment entered. Ordering Provider: AARON VICTOR Report Released Date/Time: Apr 23, 2024 12:05 PM Reporting Lab: [facility] [phone] Performing Lab: [facility] [address] CREATININE 0.7 mg/dL 0.7-1.2 UREA NITROGEN 19 [...] >90 >60 Apr 23, 2024 01:20 PM [facility] CBC & DIFF Specimen Type: BLOOD Comment: Automated Differential Performed Ordering Provider: AARON VICTOR Report Released Date/Time: Apr 23, 2024 12:05 PM Reporting Lab: [facility] [address] Performing Lab: [facility] [address] WBC 12.50 10*3/uL H 4.0-11.0 RBC 4.07 [...] 10*3/uL 0-0.1 Apr 21, 2024 07:28 AM [facility] URINALYSIS Specimen Type: URINE No comment entered. Ordering Provider: ANANDA HUGGINS Report Released Date/Time: Apr 21, 2024 07:37 AM Reporting Lab: [facility] [address] Performing Lab: [facility] [address] URINE COLOR COLORLESS SPECIFIC GRAVITY 1.009 1.003-1.03 [...] and tobacco- related health factors from the [place] facility where the Encounter took place. Current Smoking Status This section includes the most current smoking, or tobacco-related health factor, from the [place] facility where the Encounter took place. Date/Time Current Smoking Status Comment Facil ity May 06, 2023 11:30 AM 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 [facility] Tobacco Use History This section includes a history of the smoking, or tobacco-related health factors, that were collected on or before the date of the Encounter. The data comes from the [place] facility where the Encounter took place. Date/Time Smoking Status/Tobacco Use Comment F acility May 06, 2023 11:30 AM VA-TOBACCO QUIT 15 YRS OR MORE [facility] Jun 04, 2022 09:00 AM 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 [facility] Jun 04, 2022 09:00 AM VA-TOBACCO QUIT 15 YRS OR MORE [facility] Jul 10, 2021 08:00 AM 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 [facility] Jul 10, 2021 08:00 AM VA-TOBACCO QUIT 5 TO < 15 YRS [facility] May 23, 2020 08:30 AM 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 [facility] May 23, 2020 08:30 AM VA-TOBACCO QUIT 5 TO < 15 YRS [facility] Mar 20, 2019 04:03 PM 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 [facility] Mar 20, 2019 04:03 PM VA-TOBACCO QUIT 5 TO < 15 YRS [facility] Mar 21, 2018 08:13 AM FORMER TOBACCO USER 7Y OR GREATE R [facility] Feb 24, 2017 09:24 AM FORMER TOBACCO USER 7Y OR GREATE R [facility] January 07, 2016 08:01 AM FORMER TOBACCO USE >1Y <7Y [facility] Feb 03, 2015 07:58 AM FORMER TOBACCO USE <1Y [facility] Feb 26, 2014 08:41 AM CURRENT TOBACCO USER [facility] May 13, 2011 01:45 PM CURRENT TOBACCO USER [facility] Advance Directives: All historical and current Section Date Range: From patient's date of to the date document was created. This section includes ALL of a patient's completed or amended [place] Advance and Rescinded Directives. The entries below indicate that a directive exists for the patient, but an actual copy is not included with this document. The data comes from all [facility]. Date Advance Directives Provider Source Mar 23, 2016 CLINICAL WARNING [facility] Radiology Reports: +/- [...] the Encounter. The data comes from all [place] treatment facilities. 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 Palmira Graves MD LAST CREATININE 0.7 (04/23/24) Report Status: Verified Date Reported: APR 24, 2024 Date Verified: APR 24, 2024 Personnel Representative E-Sig:/ES/SADIA DEE MD Report: PROCEDURES: Placement of [...] anesthesia. Using real-time CT fluoroscopy, a 5 Maldivian Yueh catheter was advanced into the collection in the left lower quadrant. A wire was coiled in the collection. The tract into the collection was dilated to accommodate the 12 Maldivian locking pigtail drainage catheter. The catheter was secured to the skin with monofilament suture and connected to JUAN bulb suction. Impression: Successful placement of a 12 Maldivian locking pigtail drainage catheter in the left lower quadrant abscess. This catheter is connected to JUAN bulb suction with flushes, as ordered. I, SADIA DEE, have reviewed the images and report. Primary Interpreting Staff: SADIA DEE MD, RADIOLOGIST (Personnel Representative) Primary Interpreting Resident: JEFFREY FLOWER MD, ELECTRIC RANGE PREPARER /SADIA SNYDER [facility] Apr 24, 2024 02:[address] NEEDLE PLACEMEN T (P): MEGFLYNN YAMIL [id number] -1950 M Exm Date: APR 24, 2024@14:11 Req Phys: TAURUS WOODE Amanda Loc: 3K04-24-2024@16:07 Img Loc: CT IMAGING Service: PRIMARY [place] [address] (Case [id number] COMPLETE) CT SCAN FOR NEEDLE PLACEMENT (CT Detailed) CPT:43257 Reason for Study: diverticular abscess Clinical History: Report Status: Verified Date Reported: APR 24, 2024 Date Verified: APR 24, 2024 Personnel Representative E-Sig:/ES/SADIA DEE MD Report: PROCEDURES: Placement of [...] anesthesia. Using real-time CT fluoroscopy, a 5 Maldivian Yueh catheter was advanced into the collection in the left lower quadrant. A wire was coiled in the collection. The tract into the collection was dilated to accommodate the 12 Maldivian locking pigtail drainage catheter. The catheter was secured to the skin with monofilament suture and connected to JUAN bulb suction. Impression: Successful placement of a 12 Maldivian locking pigtail drainage catheter in the left lower quadrant abscess. This catheter is connected to JUAN bulb suction with flushes, as ordered. I, SADIA DEE, have reviewed the images and report. Primary Interpreting Staff: SADIA DEE MD, RADIOLOGIST (Personnel Representative) Primary Interpreting Resident: JEFFREY FLOWER MD, ELECTRIC RANGE PREPARER /SADIA SNYDER [facility] Apr 23, 2024 06:[address] ABDOMEN/ PELVIS: FLYNN ROY [id number] -1950 M Exm Date: APR 23, 2024@06:36 Req Phys: MCKAY VICTOR Pat Loc: 04-24-2024@10:25 Img Loc: OUTSOURCE CT Service: Unknown (Case [id number] COMPLETE) NON [facility] CT ABDOMEN/PELVIS (CT Detailed) CPT:95438 Reason for Study: OUTSIDE STUDY Clinical History: OUTSIDE STUDY Report Status: Electronically Filed Date Reported: APR 24, 2024 Report: This is an outside Imaging study and/or report imported for continuity of patient care. This Imaging study and/or report was not reviewed or verified by a [place] Radiologist. Impression: This is an outside Imaging study and/or report imported for continuity of patient care. This Imaging study and/or report was not reviewed or verified by a [place] Radiologist. Primary Diagnostic Code: VERIFIED BY: / *ELECTRONICALLY FILED* [facility] Pathology Reports: +/- 30 days of [...] the Encounter. The data comes from all [place] treatment facilities. Date/Time Pathology Report Provider Source Apr 21, 2024 07:28 AM LR MICROBIOLOGY RE PORT: Reporting Lab: [facility] [CLIA# [id number]] [place] [address] Accession [UID]: [id number] [[id number]] Received: Apr 21, 2024@08:16 Collection sample: URINE Collection date: Apr 21, 2024 07:28 Provider: ANANDA HUGGINS Comment on specimen: RECEIVED IN STERILE CUP Test(s) ordered: CULTURE & SUSCEPTIBILITY...... completed: Apr 22, 2024 * BACTERIOLOGY FINAL REPORT => Apr 22, 2024 08:38 TECH CODE: [id number] CULTURE RESULTS: NO GROWTH 24 HOURS Bacteriology Remark(s): THIS REPORT IS FINAL =--=--=--=--=--=--=--=--=--=--=--=- -=--=--=--=--=--=--=--=--=--=--=--= --=--=-- Performing Laboratory: Bacteriology Report Performed By: [facility] [CLIA# [id number]] [place] [address] [facility] Encounter Notes: All associated encounter notes This section contains the clinical notes associated to the Encounter. Date/Time Encounter Note(s) Provider Source Apr 23, 2024 08:25 AM EMERGENCY DEPT TRI AGE NOTE: LOCAL TITLE: TRANSFER IN REQUEST PHYSICIAN NOTE STANDARD TITLE: EMERGENCY DEPT TRIAGE NOTE DATE OF NOTE: APR 23, 2024@08:25 ENTRY DATE: APR 23, 2024@08:25:13 AUTHOR: COLT QUIJANO COSIGNER: URGENCY: STATUS: COMPLETED PATIENT ADDRESS: [address] [place] [id number] PHONE: Patient/guardian consents to transfer. Referring physician certifies that benefit of transfer outways risk. From:[place], [place] Sending Facility Provider/Title/Pager: [facility] - Dr. Man Accepting Facility Provider/Designee/Pager: [facility] Dr. Quijano [phone] -------- Requested Date/Time: APR 23, 2024 08:25 Reason for Referral/Assessment: 73 year old male with PMH SUMMARY OF CARE: Allergies: TERAZOSIN (Mar 13, 2015) Vital Signs: afebrile, hemodynamically stable - Mild tenderness to palpation on abdomen exam without rebound or guardign Significant Clinical Findings, Labs, Baseline Medical Evaluation: Interventions done at the Referring Facility: Labs: WBC 19. Lactate 2.7, CRP 18, K+ 2.4, Urine Culture + Blood Culture X 1 X-rays: 7.2X4cm abscess EKG: Medications Administered: Potassium, Zosyn IV Fluid/O2 Administered: 1L IVF Assessment: Flynn Roy is a 73 year old male with PMH recurrent diverticulitis, h/o hemorrhoids s/p banding, and chronic constipation who presented to the ED in [place], [place] with complaints of air and feces in his urine. CT scan shows diverticulitis with abscess and new colovesicular fistula. - Admit to Med-Surg Bed without Telemetry - Colorectal Surgery Evaluation - Continue IV antibiotics - Obtain requested records and imaging Time Spent: 15 minutes Is the patient transferring to an ICU bed? No Medically Stable: YES Behaviorally Stable: YES History of violence or agitation: No Level of Care Prior to Transfer at [facility]: ER, Medical Unit Level of Care Required at [facility]: Medical Unit Reports requested/received from referring facility: Health Summary, Med Profile, Inter-facility Transfer Form, Advance Directive, Imaging Reports/Imaging CD, ER Reports, Progress Notes, Discharge Summary /es/ COLT QUIJANO MD Physician Signed: 04/23/2024 08:35 Receipt Acknowledged By: 04/23/2024 08:46 /alexi/ BRIDGETTE CHRISTIANSON RN Community Health Plan Advisor COLT QUIJANO [facility] Apr 23, 2024 08:01 AM NONVA NOTE: LOCAL TITLE: COMMUNITY CARE-AMNA SELF PRESENTING CARE COORD PLAN STANDARD TITLE: NONVA NOTE DATE OF NOTE: APR 23, 2024@08:01 ENTRY DATE: APR 23, 2024@08:01:25 AUTHOR: KIRTI JONES COSIGNER: URGENCY: STATUS: COMPLETED COMMUNITY CARE-AMNA SELF PRESENTING CARE COORD PLAN NOTE Has ADDENDA Emergency Notification Intake Date Presenting to the Facility: Mar Method of Contact: Phone [facility]: [facility] Address: City: [place] State: [place] Zip Code: Phone : Community Facility Point of Contact: Name: DR MAN Chief complaint: DIVERTICULOSIS ABSCESS COLOVESICAL FISTULA Primary Diagnosis: Disposition Unknown at time of intake note entry /alexi/ KIRTI JONES PRODUCTION HELPER (AOD) Signed: 04/23/2024 08:02 Receipt Acknowledged By: 04/23/2024 08:08 /alexi/ BRIDGETTE CHRISTIANSON RN Community Health Plan Advisor 04/23/2024 ADDENDUM STATUS: COMPLETED [id number] Comments: 04/23/2024 5:08:54 AM EDT PRANEETH COLEMAN UNABLE TO CALLOUT AFTER HOURS, MATCHED ALL INFO TO JONATHAN /alexi/ [facility] [employer] TURBINE TECHNICIAN Signed: 04/23/2024 08:34 04/23/2024 ADDENDUM STATUS: COMPLETED I spoke to Lino GOLDEN who called the ED physcian and spoke to her about . [facility] is sending over the records for and I will scan them into chart once available. Bed Coordinator is finding a bed for this . /alexi/ BRIDGETTE CHRISTIANSON RN Community Health Plan Advisor Signed: 04/23/2024 08:45 04/23/2024 ADDENDUM STATUS: COMPLETED VistA Imaging Scanned Document - Addendum. 04/23/24 [facility] interfacility transfer request for documentation for the chart will be admitted to the [facility] 3K. SCANNED DOCUMENT SIGNATURE NOT REQUIRED Electronically Filed: 04/23/2024 by: BRIDGETTE CHRISTIANSON RN Community Health Plan Advisor 04/23/2024 ADDENDUM STATUS: COMPLETED Received a call from Julio from the ED is the 2nd inline for the EMS still not a ETA but the nurse will be calling to the nurses station 3K for report. /alexi/ BRIDGETTE CHRISTIANSON RN Community Health Plan Advisor Signed: 04/23/2024 09:14 KIRTI JONES [facility]
--- OUTSIDE RECORDS SUMMARY | 2024-05-04 01:02 | XMS_ITS | Encounter Summary ---
Author Name [facility] [facility] [place] Address [address] [place] [address] Care Team Providers Care Cost Recorder Name Role Phone JATINDER BENITEZ Primary Care [...] PART A Sep 29, 2016 PART A [phone] JUDY WEAVER PATIENT Selected Encounter This section includes the information on record at [place] for the Encounter. Date/Time Encounter Type Encounter Description Reason Provider Source Apr 23, 2024 05:21 PM IP/OBS CNSLTJ NEW/EST MOD 60 CARDIOLOGY ICD-10-CM I44.1 Atrioventricular block, second degree AMIE COOLEY [facility] Encounter Template Text not used by [place] Assessments - Encounter Diagnoses This section includes the primary and secondary diagnoses documented for the Encounter. Date/Time Primary/Secondary Diagnosis Diagnosis Name Provider Source Apr 23, 2024 05:24 PM PRIMARY Atrioventricular block, second degree AMIE COOLEY [facility] Plan of Treatment: Future Appointments (+ 6 months) and Future Tests (+/- 45 days) The Plan of Treatment section includes future care activities for the [facility] [place] [facility] This section includes future appointments and future orders which are active, pending or scheduled. Future Appointments This section includes appointments that were scheduled to occur 6 months from the date of the Encounter, up to a maximum of 20 appointments. The data comes from all [facility]. Appointment Date/Time Appointment Type Appointme nt Facility Name Apr 27, 2024 02:30 PM AMBULATORY - NONE [facility] May 02, 2024 10:00 AM AMBULATORY - SURGERY [facility] May 04, 2024 09:00 AM AMBULATORY - NONE [facility] May 07, 2024 08:45 AM AMBULATORY - MEDICINE [facility] May 08, 2024 02:00 PM AMBULATORY - NONE [facility] May 09, 2024 07:30 AM AMBULATORY - SURGERY [facility] May 15, 2024 08:30 AM AMBULATORY MEDICINE [facility] Active, Pending, and Scheduled Orders This section includes a listing of several types of active, pending, and scheduled orders, including clinic medications orders, diagnostic test orders, procedure orders and consult orders; where the start date of the order is 45 days before the date of the Encounter or 45 days after the date of theEncounter. The data comes from all [facility]. Test Date/Time Test Type Test Details Facility Name Apr 26, 2024 10:10 AM Laboratory - Microbiology Order CULTURE & SUSCEPTIBILITY WOUND OTHER WC ONCE ~For Test: CULTURE & SUSCEPTIBILITY ~Culture sample from JUAN drain output [facility] Apr 26, 2024 10:10 AM Laboratory - Microbiology Order GRAM STAIN WOUND OTHER WC ONCE ~For Test: GRAM STAIN ~JUAN drain culture/gram stain [facility] Apr 27, 2024 02:30 PM Imaging - Ultrasound Order US AORTA (P) [facility] May 04, 2024 12:00 AM Laboratory - Chemistry Order BASIC METABOLIC PANEL+MG PLASMA SP ONCE [facility] May 08, 2024 02:00 PM Imaging - CT Scan Order CT (AP) ABDOMEN/PELVIS (P) LISANDRO [facility] Lab Results: +/- 30 days [...] Range Comment Apr 26, 2024 07:16 AM [facility] BASIC METABOLIC PANEL+MG Specimen Type: PLASMA No comment entered. Ordering Provider: JONO RANDOLPH Report Released Date/Time: Apr 25, 2024 02:50 PM Reporting Lab: [facility] [id number] Performing Lab: [facility] [phone] CREATININE 0.7 mg/dL 0.7-1.2 UREA NITROGEN 15 mg/dL 8-26 GLUCOSE 106 mg/dL H 70-100 SODIUM 139 mmol/L 136-145 POTASSIUM 3.4 mmol/L L 3.5-5.1 CHLORIDE 105 mmol/L 98-107 CO2 25 mmol/L 22-29 CALCIUM 8.5 mg/dL 8.4-10.2 MAGNESIUM 2.2 mg/dL 1.6-2.6 ANION GAP 9 mmol/L 5-15 .CREAT EGFR(CKD-EPI) >90 >60 Apr 25, 2024 05:10 PM [facility] BASIC METABOLIC PANEL+MG Specimen Type: PLASMA No comment entered. Ordering Provider: GIOVANNI ADLER Report Released Date/Time: Apr 25, 2024 05:04 PM Reporting Lab: [facility] [id number] Performing Lab: [facility] [phone] CREATININE 0.7 mg/dL 0.7-1.2 UREA NITROGEN 15 mg/dL 8-26 GLUCOSE 104 mg/dL H 70-100 SODIUM 139 mmol/L 136-145 POTASSIUM 3.2 mmol/L L 3.5-5.1 CHLORIDE 103 mmol/L 98-107 CO2 28 mmol/L 22-29 CALCIUM 8.5 mg/dL 8.4-10.2 MAGNESIUM 2.2 mg/dL 1.6-2.6 ANION GAP 8 mmol/L 5-15 .CREAT EGFR(CKD-EPI) >90 >60 Apr 25, 2024 07:46 AM [facility] BASIC METABOLIC PANEL+MG Specimen Type: PLASMA No comment entered. Ordering Provider: GIOVANNI ADLER Report Released Date/Time: Apr 24, 2024 12:37 PM Reporting Lab: [facility] [phone] Performing Lab: [facility] [phone] CREATININE 0.7 mg/dL 0.7-1.2 UREA NITROGEN 14 mg/dL 8-26 GLUCOSE 127 mg/dL H 70-100 SODIUM 139 mmol/L 136-145 POTASSIUM 2.9 mmol/L L 3.5-5.1 CHLORIDE 101 mmol/L 98-107 CO2 29 mmol/L 22-29 CALCIUM 8.7 mg/dL 8.4-10.2 MAGNESIUM 2.3 mg/dL 1.6-2.6 ANION GAP 9 mmol/L 5-15 .CREAT EGFR(CKD-EPI) >90 >60 Apr 24, 2024 04:42 PM [facility] BASIC METABOLIC PANEL+MG Specimen Type: PLASMA No comment entered. Ordering Provider: GIOVANNI ADLER Report Released Date/Time: Apr 24, 2024 12:37 PM Reporting Lab: [facility] [phone] Performing Lab: [facility] [phone] CREATININE 0.7 mg/dL 0.7-1.2 UREA NITROGEN 16 mg/dL 8-26 GLUCOSE 97 mg/dL 70-100 SODIUM 138 mmol/L 136-145 POTASSIUM 2.7 mmol/L L 3.5-5.1 CHLORIDE 99 mmol/L 98-107 CO2 30 mmol/L H 22-29 CALCIUM 8.4 mg/dL 8.4-10.2 MAGNESIUM 2.1 mg/dL 1.6-2.6 ANION GAP 9 mmol/L 5-15 .CREAT EGFR(CKD-EPI) >90 >60 Apr 24, 2024 07:36 AM [facility] BASIC METABOLIC PANEL+MG Specimen Type: PLASMA Comment: Critical Value Reported To: Cait Zamorano RN 8-27-24@0832 [facility]. Critical value report confirmed. Ordering Provider: AARON VICTOR Report Released Date/Time: Apr 23, 2024 05:30 PM Reporting Lab: [facility] [phone] Performing Lab: [facility] [address] CREATININE 0.7 mg/dL 0.7-1.2 UREA NITROGEN 16 mg/dL 8-26 GLUCOSE 105 mg/dL H 70-100 SODIUM 138 mmol/L 136-145 POTASSIUM 2.3 mmol/L LL 3.5-5.1 CHLORIDE 98 mmol/L 98-107 CO2 29 mmol/L 22-29 CALCIUM 8.3 mg/dL L 8.4-10.2 MAGNESIUM 2.2 mg/dL 1.6-2.6 ANION GAP 11 mmol/L 5-15 .CREAT EGFR(CKD-EPI) >90 >60 Apr 24, 2024 07:35 AM [facility] CBC & DIFF Specimen Type: BLOOD Comment: Automated Differential Performed Ordering Provider: AARON VICTOR Report Released Date/Time: Apr 23, 2024 05:30 PM Reporting Lab: [facility] [phone] Performing Lab: [facility] [phone] WBC 10.49 10*3/uL 4.0-11.0 RBC 3.83 10*6/uL [...] 10*3/uL 0-0.1 Apr 23, 2024 01:20 PM [facility] LACTIC ACID Specimen Type: PLASMA No comment entered. Ordering Provider: AARON VICTOR Report Released Date/Time: Apr 23, 2024 12:05 PM Reporting Lab: [facility] [phone] Performing Lab: [facility] [phone] LACTIC ACID 1.5 mmol/L 0.5-2.2 Apr 23, 2024 01:20 PM [facility] PROTHROMBIN TIME/INR Specimen Type: PLASMA No comment entered. Ordering Provider: AARON VICTOR Report Released Date/Time: Apr 23, 2024 12:05 PM Reporting Lab: [facility] [phone] Performing Lab: [facility] [address] .INR 1.2 H 0.8-1.1 .PT 14.5 s H 9.4-12.5 Apr 23, 2024 01:20 PM [facility] ACT PART THROMBO TIME Specimen Type: PLASMA No comment entered. Ordering Provider: AARON VICTOR Report Released Date/Time: Apr 23, 2024 12:05 PM Reporting Lab: [facility] [phone] Performing Lab: [facility] [address] APTT 29.3 s 25.1-36.5 Apr 23, 2024 01:20 PM [facility] COMPREHENSIVE METABOLIC PANEL+MG Specimen Type: PLASMA No comment entered. Ordering Provider: AARON VICTOR Report Released Date/Time: Apr 23, 2024 12:05 PM Reporting Lab: [facility] [address] Performing Lab: [facility] [address] CREATININE 0.7 mg/dL 0.7-1.2 UREA NITROGEN 19 [...] >90 >60 Apr 23, 2024 01:20 PM [facility] CBC & DIFF Specimen Type: BLOOD Comment: Automated Differential Performed Ordering Provider: AARON VICTOR Report Released Date/Time: Apr 23, 2024 12:05 PM Reporting Lab: [facility] [address] Performing Lab: [facility] [phone] WBC 12.50 10*3/uL H 4.0-11.0 RBC 4.07 [...] 10*3/uL 0-0.1 Apr 21, 2024 07:28 AM [facility] URINALYSIS Specimen Type: URINE No comment entered. Ordering Provider: ANANDA HUGGINS Report Released Date/Time: Apr 21, 2024 07:37 AM Reporting Lab: [facility] [address] Performing Lab: [facility] [phone] URINE COLOR COLORLESS SPECIFIC GRAVITY 1.009 1.003-1.03 [...] Apr 23, 2024 01:59 PM 211.1 [facility] Social History: Smoking Status (Most [...] Facil ity May 06, 2023 11:30 AM [place]-TOBACCO QUIT 15 YRS OR MORE [facility] Tobacco Use History This section includes a history of the smoking, or tobacco-related health factors, that were collected on or before the date of the Encounter. The data comes from the [place] facility where the Encounter took place. Date/Time Smoking Status/Tobacco Use Comment F acility May 06, 2023 11:30 AM VA-TOBACCO QUIT 15 YRS OR MORE [facility] Jun 04, 2022 09:00 AM 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 [facility] Jun 04, 2022 09:00 AM VA-TOBACCO QUIT 15 YRS OR MORE [facility] Jul 10, 2021 08:00 AM 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 [facility] Jul 10, 2021 08:00 AM VA-TOBACCO QUIT 5 TO < 15 YRS [facility] May 23, 2020 08:30 AM 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 [facility] May 23, 2020 08:30 AM VA-TOBACCO QUIT 5 TO < 15 YRS [facility] Mar 20, 2019 04:03 PM 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 [facility] Mar 20, 2019 04:03 PM VA-TOBACCO QUIT 5 TO < 15 YRS [facility] Mar 21, 2018 08:13 AM FORMER TOBACCO USER 7Y OR GREATE R [facility] Feb 24, 2017 09:24 AM FORMER TOBACCO USER 7Y OR GREATE R [facility] January 07, 2016 08:01 AM FORMER TOBACCO USE >1Y <7Y [facility] Feb 03, 2015 07:58 AM FORMER TOBACCO USE <1Y [facility] Feb 26, 2014 08:41 AM CURRENT TOBACCO USER [facility] May 13, 2011 01:45 PM CURRENT TOBACCO USER [facility] Advance Directives: All historical and [...] Provider Source Mar 23, 2016 [facility] 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 Palmira Graves MD LAST CREATININE 0.7 (04/23/24) Report Status: Verified Date Reported: APR 24, 2024 Date Verified: APR 24, 2024 Ventilating Expert E-Sig:/ES/SADIA DEE MD Report: PROCEDURES: Placement of [...] anesthesia. Using real-time CT fluoroscopy, a 5 Romanian Yueh catheter was advanced into the collection in the left lower quadrant. A wire was coiled in the collection. The tract into the collection was dilated to accommodate the 12 Romanian locking pigtail drainage catheter. The catheter was secured to the skin with monofilament suture and connected to JUAN bulb suction. Impression: Successful placement of a 12 Romanian locking pigtail drainage catheter in the left lower quadrant abscess. This catheter is connected to JUAN bulb suction with flushes, as ordered. I, SADIA DEE, have reviewed the images and report. Primary Interpreting Staff: SADIA DEE MD, RADIOLOGIST (Ventilating Expert) Primary Interpreting Resident: JEFFREY FLOWER MD, UNHAIRER /SADIA SNYDER [facility] Apr 24, 2024 02:[address] NEEDLE PLACEMEN T (P): FLACA WEAVER [id number] -1950 M Exm Date: APR 24, 2024@14:11 Req Phys: TAURUS WOOD Loc: 3K04-24-2024@16:07 [facility] Loc: CT IMAGING Service: PRIMARY CARE [place] [address] (Case [id number] COMPLETE) CT SCAN FOR NEEDLE PLACEMENT (CT Detailed) CPT:49536 Reason for Study: diverticular abscess Clinical History: Report Status: Verified Date Reported: APR 24, 2024 Date Verified: APR 24, 2024 Ventilating Expert E-Sig:/ES/SADIA DEE MD Report: PROCEDURES: Placement of [...] anesthesia. Using real-time CT fluoroscopy, a 5 Romanian Yueh catheter was advanced into the collection in the left lower quadrant. A wire was coiled in the collection. The tract into the collection was dilated to accommodate the 12 Romanian locking pigtail drainage catheter. The catheter was secured to the skin with monofilament suture and connected to JUAN bulb suction. Impression: Successful placement of a 12 Romanian locking pigtail drainage catheter in the left lower quadrant abscess. This catheter is connected to JUAN bulb suction with flushes, as ordered. I, SADIA DEE, have reviewed the images and report. Primary Interpreting Staff: SADIA DEE MD, RADIOLOGIST (Ventilating Expert) Primary Interpreting Resident: JEFFREY FLOWER MD, UNHAIRER /SADIA SNYDER [facility] Apr 23, 2024 06:[address] ABDOMEN/ PELVIS: FLACA WEVAER [id number] -1950 M Exm Date: APR 23, 2024@06:36 Req Phys: MCKAY VICTOR Loc: 04-24-2024@10:25 [facility] Loc: OUTSOURCE CT Service: Unknown (Case [id number] COMPLETE) NON VA CT ABDOMEN/PELVIS (CT Detailed) CPT:80531 Reason for Study: OUTSIDE STUDY Clinical History: [...] Diagnostic Code: VERIFIED BY: / *ELECTRONICALLY FILED* [facility] Pathology Reports: +/- 30 days [...] AM LR MICROBIOLOGY RE PORT: Reporting Lab: [facility] [CLIA# [id number]] [place] [address] Accession [UID]: [id number] [[id number]] Received: Apr 21, 2024@08:16 Collection sample: URINE Collection date: Apr 21, 2024 07:28 Provider: ANANDA HUGGINS Comment on specimen: RECEIVED IN STERILE CUP Test(s) ordered: CULTURE & SUSCEPTIBILITY...... completed: Apr 22, 2024 * BACTERIOLOGY FINAL REPORT => Apr 22, 2024 08:38 TECH CODE: [id number] CULTURE RESULTS: NO GROWTH 24 HOURS Bacteriology Remark(s): THIS REPORT IS FINAL =--=--=--=--=--=--=--=--=--=--=--=- -=--=--=--=--=--=--=--=--=--=--=--= --=--=-- Performing Laboratory: Bacteriology Report Performed By: [facility] [CLIA# [id number]] [address] [place] [address] [facility]
--- OUTSIDE RECORDS SUMMARY | 2024-05-04 01:02 | XMS_ITS | Encounter Summary ---
Author Name [facility] [place] [facility] [place] [facility] [place] Address [address] [place] [address] Care Team Providers Care Print Producer Name Role Phone JATINDER BENITEZ Primary Care [...] PART A Sep 29, 2016 PART A [phone] JUDY WEAVER PATIENT Selected Encounter This section includes the information on record at [place] for the Encounter. Date/Time Encounter Type Encounter Description Reason Pro vider Source Apr 23, 2024 03:14 PM Inpatient Visit CLINICAL PHARMACY I[facility] Encounter Template Text not used by [...] 2024 02:30 PM AMBULATORY - NONE [facility] May 02, 2024 10:00 AM AMBULATORY - SURGERY [facility] May 04, 2024 09:00 AM AMBULATORY - NONE [facility] May 07, 2024 08:45 AM AMBULATORY - MEDICINE [facility] May 08, 2024 02:00 PM [facility] May 09, 2024 07:30 AM AMBULATORY - SURGERY [facility] May 15, 2024 08:30 AM AMBULATORY - MEDICINE [facility] Active, Pending, and Scheduled Orders This [...] SUSCEPTIBILITY ~Culture sample from JUAN drain output [facility] Apr 26, 2024 10:10 AM Laboratory - Microbiology Order GRAM STAIN WOUND OTHER WC ONCE ~For Test: GRAM STAIN ~JUAN drain culture/gram stain [facility] Apr 27, 2024 02:30 PM Imaging - Ultrasound Order US AORTA (P) [facility] May 04, 2024 12:00 AM Laboratory - Chemistry Order BASIC METABOLIC PANEL+MG PLASMA SP ONCE [facility] May 08, 2024 02:00 PM Imaging - CT Scan Order CT (AP) ABDOMEN/PELVIS (P) LISANDRO [facility] Lab Results: +/- 30 days [...] Range Comment Apr 26, 2024 07:16 AM [facility] BASIC METABOLIC PANEL+MG Specimen Type: PLASMA No comment entered. Ordering Provider: JONO RANDOLPH Report Released Date/Time: Apr 25, 2024 02:50 PM Reporting Lab: [facility] [address] [facility] [address] Performing Lab: [facility] [address] CREATININE 0.7 mg/dL 0.7-1.2 UREA NITROGEN 15 mg/dL 8-26 GLUCOSE 106 mg/dL H 70-100 SODIUM 139 mmol/L 136-145 POTASSIUM 3.4 mmol/L L 3.5-5.1 CHLORIDE 105 mmol/L 98-107 CO2 25 mmol/L 22-29 CALCIUM 8.5 mg/dL 8.4-10.2 MAGNESIUM 2.2 mg/dL 1.6-2.6 ANION GAP 9 mmol/L 5-15 .CREAT EGFR(CKD-EPI) >90 >60 Apr 25, 2024 05:10 PM [facility] BASIC METABOLIC PANEL+MG Specimen Type: PLASMA No comment entered. Ordering Provider: GIOVANNI ADLER Report Released Date/Time: Apr 25, 2024 05:04 PM Reporting Lab: [facility] [address] Performing Lab: [facility] [address] CREATININE 0.7 mg/dL 0.7-1.2 UREA NITROGEN 15 mg/dL 8-26 GLUCOSE 104 mg/dL H 70-100 SODIUM 139 mmol/L 136-145 POTASSIUM 3.2 mmol/L L 3.5-5.1 CHLORIDE 103 mmol/L 98-107 CO2 28 mmol/L 22-29 CALCIUM 8.5 mg/dL 8.4-10.2 MAGNESIUM 2.2 mg/dL 1.6-2.6 ANION GAP 8 mmol/L 5-15 .CREAT EGFR(CKD-EPI) >90 >60 Apr 25, 2024 07:46 AM [facility] BASIC METABOLIC PANEL+MG Specimen Type: PLASMA No comment entered. Ordering Provider: GIOVANNI ADLER Report Released Date/Time: Apr 24, 2024 12:37 PM Reporting Lab: [facility] [address] Performing Lab: [facility] [address] CREATININE 0.7 mg/dL 0.7-1.2 UREA NITROGEN 14 mg/dL 8-26 GLUCOSE 127 mg/dL H 70-100 SODIUM 139 mmol/L 136-145 POTASSIUM 2.9 mmol/L L 3.5-5.1 CHLORIDE 101 mmol/L 98-107 CO2 29 mmol/L 22-29 CALCIUM 8.7 mg/dL 8.4-10.2 MAGNESIUM 2.3 mg/dL 1.6-2.6 ANION GAP 9 mmol/L 5-15 .CREAT EGFR(CKD-EPI) >90 >60 Apr 24, 2024 04:42 PM [facility] BASIC METABOLIC PANEL+MG Specimen Type: PLASMA No comment entered. Ordering Provider: GIOVANNI ADLER Report Released Date/Time: Apr 24, 2024 12:37 PM Reporting Lab: [facility] [address] Performing Lab: [facility] [address] CREATININE 0.7 mg/dL 0.7-1.2 UREA NITROGEN 16 mg/dL 8-26 GLUCOSE 97 mg/dL 70-100 SODIUM 138 mmol/L 136-145 POTASSIUM 2.7 mmol/L L 3.5-5.1 CHLORIDE 99 mmol/L 98-107 CO2 30 mmol/L H 22-29 CALCIUM 8.4 mg/dL 8.4-10.2 MAGNESIUM 2.1 mg/dL 1.6-2.6 ANION GAP 9 mmol/L 5-15 .CREAT EGFR(CKD-EPI) >90 >60 Apr 24, 2024 07:36 AM [facility] BASIC METABOLIC PANEL+MG Specimen Type: PLASMA Comment: Critical Value Reported To: Cait Zamorano RN 04-24-24@[address] [place] [address]. Critical value report confirmed. Ordering Provider: AARON VICTOR Report Released Date/Time: Apr 23, 2024 05:30 PM Reporting Lab: [facility] [address] Performing Lab: [facility] [address] CREATININE 0.7 mg/dL 0.7-1.2 UREA NITROGEN 16 mg/dL 8-26 GLUCOSE 105 mg/dL H 70-100 SODIUM 138 mmol/L 136-145 POTASSIUM 2.3 mmol/L LL 3.5-5.1 CHLORIDE 98 mmol/L 98-107 CO2 29 mmol/L 22-29 CALCIUM 8.3 mg/dL L 8.4-10.2 MAGNESIUM 2.2 mg/dL 1.6-2.6 ANION GAP 11 mmol/L 5-15 .CREAT EGFR(CKD-EPI) >90 >60 Apr 24, 2024 07:35 AM [facility] CBC & DIFF Specimen Type: BLOOD Comment: Automated Differential Performed Ordering Provider: AARON VICTOR Report Released Date/Time: Apr 23, 2024 05:30 PM Reporting Lab: [facility] [address] Performing Lab: [facility] [address] WBC 10.49 10*3/uL 4.0-11.0 RBC 3.83 10*6/uL [...] 10*3/uL 0-0.1 Apr 23, 2024 01:20 PM [facility] LACTIC ACID Specimen Type: PLASMA No comment entered. Ordering Provider: AARON VICTOR Report Released Date/Time: Apr 23, 2024 12:05 PM Reporting Lab: [facility] [address] Performing Lab: [facility] [address] LACTIC ACID 1.5 mmol/L 0.5-2.2 Apr 23, 2024 01:20 PM [facility] PROTHROMBIN TIME/INR Specimen Type: PLASMA No comment entered. Ordering Provider: AARON VICTOR Report Released Date/Time: Apr 23, 2024 12:05 PM Reporting Lab: [facility] [address] Performing Lab: [facility] [address] .INR 1.2 H 0.8-1.1 .PT 14.5 s H 9.4-12.5 Apr 23, 2024 01:20 PM [facility] ACT PART THROMBO TIME Specimen Type: PLASMA No comment entered. Ordering Provider: AARON VICTOR Report Released Date/Time: Apr 23, 2024 12:05 PM Reporting Lab: [facility] [address] Performing Lab: [facility] [address] APTT 29.3 s 25.1-36.5 Apr 23, 2024 01:20 PM [facility] COMPREHENSIVE METABOLIC PANEL+MG Specimen Type: PLASMA No comment entered. Ordering Provider: AARON VICTOR Report Released Date/Time: Apr 23, 2024 12:05 PM Reporting Lab: [facility] [address] Performing Lab: [facility] [address] CREATININE 0.7 mg/dL 0.7-1.2 UREA NITROGEN 19 [...] >90 >60 Apr 23, 2024 01:20 PM [facility] CBC & DIFF Specimen Type: BLOOD Comment: Automated Differential Performed Ordering Provider: LEHENBAUER,[place] LE P Report Released Date/Time: Apr 23, 2024 12:05 PM Reporting Lab: [facility] [address] Performing Lab: [facility] [address] WBC 12.50 10*3/uL H 4.0-11.0 RBC 4.07 [...] 10*3/uL 0-0.1 Apr 21, 2024 07:28 AM [facility] URINALYSIS Specimen Type: URINE No comment entered. Ordering Provider: ANANDA HUGGINS Report Released Date/Time: Apr 21, 2024 07:37 AM Reporting Lab: [facility] [address] Performing Lab: [facility] [address] URINE COLOR COLORLESS SPECIFIC GRAVITY 1.009 1.003-1.03 [...] 2024 01:59 PM 211.1 30 [place] [facility] Social History: Smoking Status (Most [...] AM VA-TOBACCO QUIT 15 YRS OR MORE [facility] Tobacco Use History This section includes a history of the smoking, or tobacco-related health factors, that were collected on or before the date of the Encounter. The data comes from the [place] facility where the Encounter took place. Date/Time Smoking Status/Tobacco Use Comment F acility May 06, 2023 11:30 AM VA-TOBACCO QUIT 15 YRS OR MORE [facility] Jun 04, 2022 09:00 AM 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 [facility] Jun 04, 2022 09:00 AM VA-TOBACCO QUIT 15 YRS OR MORE [facility] Jul 10, 2021 08:00 AM 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 [facility] Jul 10, 2021 08:00 AM VA-TOBACCO QUIT 5 TO < 15 YRS [facility] May 23, 2020 08:30 AM 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 [facility] May 23, 2020 08:30 AM VA-TOBACCO QUIT 5 TO < 15 YRS [facility] Mar 20, 2019 04:03 PM 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 [facility] Mar 20, 2019 04:03 PM VA-TOBACCO QUIT 5 TO < 15 YRS [facility] Mar 21, 2018 08:13 AM FORMER TOBACCO USER 7Y OR GREATE R [facility] Feb 24, 2017 09:24 AM FORMER TOBACCO USER 7Y OR GREATE R [facility] January 07, 2016 08:01 AM FORMER TOBACCO USE >1Y <7Y [facility] Feb 03, 2015 07:58 AM FORMER TOBACCO USE <1Y [facility] Feb 26, 2014 08:41 AM CURRENT TOBACCO USER [facility] May 13, 2011 01:45 PM CURRENT TOBACCO USER [facility] Advance Directives: All historical and [...] Mar 23, 2016 CLINICAL WARNING [facility] Radiology Reports: +/- 30 days [...] DRAIN PLAC EMENT PERITONEAL (P): FLACA WEAVER [id number] -1950 M Exm Date: APR 24, 2024@14:13 Req Phys: TAURUS WOOD Loc: 3K04-24-2024@16:07 Img Loc: INTERVENTIONAL RADIOLOGY Service: PRIMARY [place] [address] (Case [id number] COMPLETE) IR PERITONEAL/RETROPERITONEAL PER(ANI Detailed) CPT:55418 Reason for Study: diverticular abscess Clinical History: Kitzmiller IS NOT under investigation for COVID-19 or is COVID-19 negative 73yo M with hx of recurrent diverticulitis, transferred from OSH 04/[address] 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 Palmira Graves MD LAST CREATININE 0.7 (04/23/24) Report Status: Verified Date Reported: APR 24, 2024 Date Verified: APR 24, 2024 Agency Sales Management Assistant E-Sig:/ES/SADIA DEE MD Report: PROCEDURES: Placement of [...] anesthesia. Using real-time CT fluoroscopy, a 5 Algerian Yueh catheter was advanced into the collection in the left lower quadrant. A wire was coiled in the collection. The tract into the collection was dilated to accommodate the 12 Algerian locking pigtail drainage catheter. The catheter was secured to the skin with monofilament suture and connected to JUAN bulb suction. Impression: Successful placement of a 12 Algerian locking pigtail drainage catheter in the left lower quadrant abscess. This catheter is connected to JUAN bulb suction with flushes, as ordered. I, SADIA DEE, have reviewed the images and report. Primary Interpreting Staff: SADIA DEE MD, RADIOLOGIST (Agency Sales Management Assistant) Primary Interpreting Resident: JEFFREY FLOWER MD, MICROFILMING DOCUMENT PREPARER /SADIA SNYDER [facility] Apr 24, 2024 02:[address] NEEDLE PLACEMEN T (P): FLACA WEAVER [id number] -1950 M Exm Date: APR 24, 2024@14:11 Req Phys: TAURUS WOOD Loc: 3K04-24-2024@16:07 Img Loc: CT IMAGING Service: [place] [address] (Case [id number] COMPLETE) CT SCAN FOR NEEDLE PLACEMENT (CT Detailed) CPT:11007 Reason for Study: diverticular abscess Clinical History: Report Status: Verified Date Reported: APR 24, 2024 Date Verified: APR 24, 2024 Agency Sales Management Assistant E-Sig:/ES/SADIA DEE MD Report: PROCEDURES: Placement of [...] anesthesia. Using real-time CT fluoroscopy, a 5 Algerian Yueh catheter was advanced into the collection in the left lower quadrant. A wire was coiled in the collection. The tract into the collection was dilated to accommodate the 12 Algerian locking pigtail drainage catheter. The catheter was secured to the skin with monofilament suture and connected to JUAN bulb suction. Impression: Successful placement of a 12 Algerian locking pigtail drainage catheter in the left lower quadrant abscess. This catheter is connected to JUAN bulb suction with flushes, as ordered. I, SADIA DEE, have reviewed the images and report. Primary Interpreting Staff: SADIA DEE MD, RADIOLOGIST (Agency Sales Management Assistant) Primary Interpreting Resident: JEFFREY FLOWER MD, MICROFILMING DOCUMENT PREPARER /SADIA SNYDER [facility] Apr 23, 2024 06:[address] ABDOMEN/ PELVIS: FLACA WEAVER [id number] -1950 M Ex Date: APR 23, 2024@06:36 Req Phys: MCKAY VICTOR Pat Loc: 04-24-2024@10:25 Img Loc: OUTSOURCE CT Service: Unknown (Case [id number] COMPLETE) NON [facility] CT ABDOMEN/PELVIS (CT Detailed) CPT:97891 Reason for Study: OUTSIDE STUDY Clinical History: [...] Diagnostic Code: VERIFIED BY: / *ELECTRONICALLY FILED* [facility] Pathology Reports: +/- 30 days [...] AM LR MICROBIOLOGY RE PORT: Reporting Lab: [facility] [CLIA# [id number]] [place] [address] Accession [UID]: [id number] [[id number]] Received: Apr 21, 2024@08:16 Collection sample: URINE Collection date: Apr 21, 2024 07:28 Provider: ANANDA HUGGINS Comment on specimen: RECEIVED IN STERILE CUP Test(s) ordered: CULTURE & SUSCEPTIBILITY...... completed: Apr 22, 2024 * BACTERIOLOGY FINAL REPORT => Apr 22, 2024 08:38 TECH CODE: [id number] CULTURE RESULTS: NO GROWTH 24 HOURS Bacteriology Remark(s): THIS REPORT IS FINAL =--=--=--=--=--=--=--=--=--=--=--=- -=--=--=--=--=--=--=--=--=--=--=--= --=--=-- Performing Laboratory: Bacteriology Report Performed By: [facility] [CLIA# [id number]] [place] [address] [facility] Encounter Notes: All associated encounter notes This section contains the clinical notes associated to the Encounter. Date/Time Encounter Note(s) Provider Source Apr 23, 2024 03:14 PM PHARMACY MEDICATIO N MGT NOTE: LOCAL TITLE: DRUG RECONCILIATION ON ADMIT STANDARD TITLE: PHARMACY MEDICATION MGT NOTE DATE OF NOTE: APR 23, 2024@15:14 ENTRY DATE: APR 23, 2024@15:14:30 AUTHOR: KARINA CHANCE COSIGNER: URGENCY: STATUS: COMPLETED PHARMACY MEDICATION HISTORY NOTE ====== Medication & allergy history was compiled by pharmacy to assist providers ordering inpatient medications. Essential med list includes active local & remote VA rxs, non-VA meds, recently rxs within last 180 days, recently discontinued rxs within last 90 days, clinic med orders, pending med orders, & inpatient med orders. Current active & pending inpatient med orders will be reviewed to complete medication reconciliation. With the exception of allergies, if a category is not listed below, there were no relevant meds for the patient. INTERVIEW Patient has been INTERVIEWED by pharmacy.He manages his own medications and is a fairly good historian. Last doses taken 825 AM. Allergies: FACILITY ALLERGY/ADR -------- No Remote Allergy/ADR Data available for this patient [facility] TERAZOSIN (nausea/vomiting) Tobacco use within the last 30 days No 04/23/2024 14:05 MEGFLACA YAMIL [id number] Source of Info: [facility] Drug Last Refills Qty Filled Remaining ---- --- ------ --------- ATORVASTATIN CALCIUM 40MG TAB 45 04/03/2024 (0) ONE-HALF QHS FOR CHOLESTEROL (AM) EMPAGLIFLOZIN 25MG TAB 45 01/17/2024 (3) ONE-HALF QDAY (AM) FUROSEMIDE 20MG TAB 90 04/06/2024 (2) ONE QDAY PRN FOR EXCESS FLUID ONE FOR WEIGHT GAIN OF 3 POUNDS OVERNIGHT OR MORE THAN 5 POUNDS IN 1 WEEK OR LEG SWELLING stopped 3 days ago d/t excessive urination HCTZ 12.5/LISINOPRIL 10MG TAB 45 05/09/2024 (1) ONE HALF QDAY FOR BLOOD PRESSURE (AM) ISOSORBIDE MONONITRATE 30MG SA TAB 90 03/09/2024 (2) ONE QDAY FOR CHEST PAIN (AM) NITROGLYCERIN 0.4MG SL TAB 100 11/21/2023 (1) DISSOLVE ONE UNDER THE TONGUE TID NEEDED CHEST PAIN FOR CHEST PAIN * MAY REPEAT EVERY 5 MINUTES--NO MORE THAN 3 TOTAL rarely ever uses PSYLLIUM ORAL PWD 1170 01/31/2024 (3) 2 TEASPOONSFUL QDAY FOR CONSTIPATION (AM) SPIRONOLACTONE 25MG TAB 45 02/08/2024 (3) ONE-HALF QDAY FOR BLOOD PRESSURE (AM) , PATIENT NOT USING/TAKING --------- ONDANSETRON 4MG ORAL DISINTEGRATING TA 30 10/26/2022 (1) DISSOLVE ONE IN UNDER THE TONGUE TID NEEDED FOR NAUSEA : 10/26/2023 POLYETHYLENE GLYCOL 3350 ORAL PWDR 1020 01/10/2023 (11) 17 GRAMS BID Indication: FOR CONSTIPATION : 01/06/2024 The following are Non-VA medications No Non-VA Meds Extracted Medications given in clinic: Not applicable Recently discontinued prescriptions: Not applicable Consider the following inpatient medications when reviewing list above to complete medication reconciliation: Active Inpatient Medications (including Supplies): Active Inpatient [...] EACH USE, MINIMUM ACTIVE OF EVERY SHIFT. /alexi/ KARINA CHANCE PHARMACIST Signed: 04/23/2024 15:34 Receipt Acknowledged By: 04/23/2024 15:37 /alexi/ MCKAY VICTOR M.D. Staff Physician KARINA CHANCE [facility]
--- OUTSIDE RECORDS SUMMARY | 2024-05-04 01:02 | XMS_ITS ---
DC DAILY HOSPITALIZATION DATA [facility] Encounter Summary Created on: May 03, 2024 FLACA WEAVER : 1950 Sex: Male Author Name [facility] Organization [facility] Address [address] [place] [address] Care Team Providers Care Commercial Drone Pilot Name Role Phone JATINDER BENITEZ Primary Care [...] PART A Sep 29, 2016 PART A [id number] [phone] JUDY WEAVER PATIENT Selected Encounter This section includes the information on record at DC for the Encounter. Date/Time Encounter Type Encounter Description Reason Pro vider Source Apr 24, 2024 01:48 AM Inpatient Visit DAILY HOSPITALIZATION DATA [facility] Encounter Template Text not used by DC Plan of Treatment: Future Appointments (+ 6 months) and Future Tests (+/- 45 days) The Plan of Treatment section includes future care activities for the patient from all DC treatmentfacilities. This section includes future appointments and future orders which are active, pending or scheduled. Future Appointments This section includes appointments that were scheduled to occur 6 months from the date of the Encounter, up to a maximum of 20 appointments. The data comes from all DC treatment facilities. Appointment Date/Time Appointment Type Appointme nt Facility Name Apr 27, 2024 02:30 PM AMBULATORY - NONE [facility] May 02, 2024 10:00 AM AMBUL[facility]ORY - SURGERY [facility] May 04, 2024 09:00 AM [facility] May 07, 2024 08:45 AM AMBULATORY - MEDICINE [facility] May 08, 2024 02:00 PM [facility] May 09, 2024 07:30 AM AMBUL[facility]ORY - SURGERY [facility] May 15, 2024 08:30 AM AMBULATORY - MEDICINE [facility] Active, Pending, and Scheduled Orders This section includes a listing of several types of active, pending, and scheduled orders, including clinic medications orders, diagnostic test orders, procedure orders and consult orders; where the start date of the order is 45 days before the date of the Encounter or 45 days after the date of theEncounter. The data comes from all DC treatment facilities. Test Date/Time Test Type Test Details Facility Name Apr 26, 2024 10:10 AM Laboratory - Microbiology Order CULTURE & SUSCEPTIBILITY WOUND OTHER WC ONCE ~For Test: CULTURE & SUSCEPTIBILITY ~Culture sample from JUAN drain output [facility] Apr 26, 2024 10:10 AM Laboratory - Microbiology Order GRAM STAIN WOUND OTHER WC ONCE ~For Test: GRAM STAIN ~JUAN drain culture/gram stain [facility] Apr 27, 2024 02:30 PM Imaging - Ultrasound Order US AORTA (P) [facility] May 04, 2024 12:00 AM Laboratory - Chemistry Order BASIC METABOLIC PANEL+MG PLASMA SP ONCE [facility] May 08, 2024 02:00 PM Imaging - CT Scan Order CT (AP) ABDOMEN/PELVIS (P) LISANDRO [facility] Lab Results: +/- 30 days of the encounter This section includes the Chemistry and Hematology Lab Results on record with DC for the patient. Radiology Reports and Pathology Reports are provided separately, in subsequent sections. Lab Results This section contains the Chemistry/Hematology Results that were resulted 30 days before or 30 daysafter the date of the Encounter. Date/Time Source Result Type Result - Unit Interpretation Reference Range Comment Apr 26, 2024 07:16 AM [facility] BASIC METABOLIC PANEL+MG Specimen Type: PLASMA No comment entered. Ordering Provider: JONO RANDOLPH Report Released Date/Time: Apr 25, 2024 02:50 PM Reporting Lab: [facility] [phone] Performing Lab: [facility] [phone] CREATININE 0.7 mg/dL 0.7-1.2 UREA NITROGEN 15 mg/dL 8-26 GLUCOSE 106 mg/dL H 70-100 SODIUM 139 mmol/L 136-145 POTASSIUM 3.4 mmol/L L 3.5-5.1 CHLORIDE 105 mmol/L 98-107 CO2 25 mmol/L 22-29 CALCIUM 8.5 mg/dL 8.4-10.2 MAGNESIUM 2.2 mg/dL 1.6-2.6 ANION GAP 9 mmol/L 5-15 .CREAT EGFR(CKD-EPI) >90 >60 Apr 25, 2024 05:10 PM [facility] BASIC METABOLIC PANEL+MG Specimen Type: PLASMA No comment entered. Ordering Provider: GIOVANNI ADLER Report Released Date/Time: Apr 25, 2024 05:04 PM Reporting Lab: [facility] [phone] Performing Lab: [facility] [phone] CREATININE 0.7 mg/dL 0.7-1.2 UREA NITROGEN 15 mg/dL 8-26 GLUCOSE 104 mg/dL H 70-100 SODIUM 139 mmol/L 136-145 POTASSIUM 3.2 mmol/L L 3.5-5.1 CHLORIDE 103 mmol/L 98-107 CO2 28 mmol/L 22-29 CALCIUM 8.5 mg/dL 8.4-10.2 MAGNESIUM 2.2 mg/dL 1.6-2.6 ANION GAP 8 mmol/L 5-15 .CREAT EGFR(CKD-EPI) >90 >60 Apr 25, 2024 07:46 AM [facility] BASIC METABOLIC PANEL+MG Specimen Type: PLASMA No comment entered. Ordering Provider: GIOVANNI ADLER Report Released Date/Time: Apr 24, 2024 12:37 PM Reporting Lab: [facility] [phone] Performing Lab: [facility] [address] CREATININE 0.7 mg/dL 0.7-1.2 UREA NITROGEN 14 mg/dL 8-26 GLUCOSE 127 mg/dL H 70-100 SODIUM 139 mmol/L 136-145 POTASSIUM 2.9 mmol/L L 3.5-5.1 CHLORIDE 101 mmol/L 98-107 CO2 29 mmol/L 22-29 CALCIUM 8.7 mg/dL 8.4-10.2 MAGNESIUM 2.3 mg/dL 1.6-2.6 ANION GAP 9 mmol/L 5-15 .CREAT EGFR(CKD-EPI) >90 >60 Apr 24, 2024 04:42 PM [facility] BASIC METABOLIC PANEL+MG Specimen Type: PLASMA No comment entered. Ordering Provider: GIOVANNI ADLER Report Released Date/Time: Apr 24, 2024 12:37 PM Reporting Lab: [facility] [phone] Performing Lab: [facility] [address] CREATININE 0.7 mg/dL 0.7-1.2 UREA NITROGEN 16 mg/dL 8-26 GLUCOSE 97 mg/dL 70-100 SODIUM 138 mmol/L 136-145 POTASSIUM 2.7 mmol/L L 3.5-5.1 CHLORIDE 99 mmol/L 98-107 CO2 30 mmol/L H 22-29 CALCIUM 8.4 mg/dL 8.4-10.2 MAGNESIUM 2.1 mg/dL 1.6-2.6 ANION GAP 9 mmol/L 5-15 .CREAT EGFR(CKD-EPI) >90 >60 Apr 24, 2024 07:36 AM [facility] BASIC METABOLIC PANEL+MG Specimen Type: PLASMA Comment: Critical Value Reported To: Cait Zamorano RN 04-24-24@08[facility]. Critical value report confirmed. Ordering Provider: AARON VICTOR Report Released Date/Time: Apr 23, 2024 05:30 PM Reporting Lab: [facility] [phone] Performing Lab: [facility] [phone] CREATININE 0.7 mg/dL 0.7-1.2 UREA NITROGEN 16 mg/dL 8-26 GLUCOSE 105 mg/dL H 70-100 SODIUM 138 mmol/L 136-145 POTASSIUM 2.3 mmol/L LL 3.5-5.1 CHLORIDE 98 mmol/L 98-107 CO2 29 mmol/L 22-29 CALCIUM 8.3 mg/dL L 8.4-10.2 MAGNESIUM 2.2 mg/dL 1.6-2.6 ANION GAP 11 mmol/L 5-15 .CREAT EGFR(CKD-EPI) >90 >60 Apr 24, 2024 07:35 AM [facility] CBC & DIFF Specimen Type: BLOOD Comment: Automated Differential Performed Ordering Provider: AARON VICTOR Report Released Date/Time: Apr 23, 2024 05:30 PM Reporting Lab: [facility] [phone] Performing Lab: [facility] [address] WBC 10.49 10*3/uL 4.0-11.0 RBC 3.83 10*6/uL [...] 10*3/uL 0-0.1 Apr 23, 2024 01:20 PM [facility] LACTIC ACID Specimen Type: PLASMA No comment entered. Ordering Provider: AARON VICTOR Report Released Date/Time: Apr 23, 2024 12:05 PM Reporting Lab: [facility] [address] Performing Lab: [facility] [address] LACTIC ACID 1.5 mmol/L 0.5-2.2 Apr 23, 2024 01:20 PM [facility] ACT PART THROMBO TIME Specimen Type: PLASMA No comment entered. Ordering Provider: AARON VICTOR Report Released Date/Time: Apr 23, 2024 12:05 PM Reporting Lab: [facility] [phone] Performing Lab: [facility] [address] APTT 29.3 s 25.1-36.5 Apr 23, 2024 01:20 PM [facility] PROTHROMBIN TIME/INR Specimen Type: PLASMA No comment entered. Ordering Provider: AARON VICTOR Report Released Date/Time: Apr 23, 2024 12:05 PM Reporting Lab: [facility] [phone] Performing Lab: [facility] [address] .INR 1.2 H 0.8-1.1 .PT 14.5 s H 9.4-12.5 Apr 23, 2024 01:20 PM [facility] COMPREHENSIVE METABOLIC PANEL+MG Specimen Type: PLASMA No comment entered. Ordering Provider: AARON VICTOR Report Released Date/Time: Apr 23, 2024 12:05 PM Reporting Lab: [facility] [phone] Performing Lab: [facility] [address] CREATININE 0.7 mg/dL 0.7-1.2 UREA NITROGEN 19 [...] >90 >60 Apr 23, 2024 01:20 PM [facility] CBC & DIFF Specimen Type: BLOOD Comment: Automated Differential Performed Ordering Provider: AARON VICTOR Report Released Date/Time: Apr 23, 2024 12:05 PM Reporting Lab: [facility] [address] Performing Lab: [facility] [address] WBC 12.50 10*3/uL H 4.0-11.0 RBC 4.07 [...] 10*3/uL 0-0.1 Apr 21, 2024 07:28 AM [facility] URINALYSIS Specimen Type: URINE No comment entered. Ordering Provider: ANANDA HUGGINS Report Released Date/Time: Apr 21, 2024 07:37 AM Reporting Lab: [facility] [address] Performing Lab: [facility] [address] URINE COLOR COLORLESS SPECIFIC GRAVITY 1.009 1.003-1.03 [...] Height Weight Body Mass Index Source Apr 24, 2024 10:[address] [facility] Apr 24, 2024 06:[address] [facility] Apr 24, 2024 04:00 PM 59 147/[address] [facility] Apr 24, 2024 12:[address] [facility] Apr 24, 2024 10:[address] [facility] Social History: Smoking Status (Most current) and Tobacco Use (All prior to encounter date) This section includes the most current, and the historical, smoking and tobacco- related health factors from the DC facility where the Encounter took place. Current Smoking Status This section includes the most current smoking, or tobacco-related health factor, from the DC facility where the Encounter took place. Date/Time Current Smoking Status Comment Facil ity May 06, 2023 11:30 AM 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 [facility] Tobacco Use History This section includes a history of the smoking, or tobacco-related health factors, that were collected on or before the date of the Encounter. The data comes from the DC facility where the Encounter took place. Date/Time Smoking Status/Tobacco Use Comment F acility May 06, 2023 11:30 AM VA-TOBACCO QUIT 15 YRS OR MORE [facility] Jun 04, 2022 09:00 AM 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 [facility] Jun 04, 2022 09:00 AM VA-TOBACCO QUIT 15 YRS OR MORE [facility] Jul 10, 2021 08:00 AM 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 [facility] Jul 10, 2021 08:00 AM VA-TOBACCO QUIT 5 TO < 15 YRS [facility] May 23, 2020 08:30 AM 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 [facility] May 23, 2020 08:30 AM VA-TOBACCO QUIT 5 TO < 15 YRS [facility] Mar 20, 2019 04:03 PM 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 [facility] Mar 20, 2019 04:03 PM VA-TOBACCO QUIT 5 TO < 15 YRS [facility] Mar 21, 2018 08:13 AM FORMER TOBACCO USER 7Y OR GREATE R [facility] Feb 24, 2017 09:24 AM FORMER TOBACCO USER 7Y OR GREATE R [facility] January 07, 2016 08:01 AM FORMER TOBACCO USE >1Y <7Y [facility] Feb 03, 2015 07:58 AM FORMER TOBACCO USE <1Y [facility] Feb 26, 2014 08:41 AM CURRENT TOBACCO USER [facility] May 13, 2011 01:45 PM CURRENT TOBACCO USER [facility] Advance Directives: All historical and current Section Date Range: From patient's date of to the date document was created. This section includes ALL of a patient's completed or amended DC Advance and Rescinded Directives. The entries below indicate that a directive exists for the patient, but an actual copy is not included with this document. The data comes from all DC facilities. Date Advance Directives Provider Source Mar 23, 2016 CLINICAL WARNING [facility] Radiology Reports: +/- 30 days [...] the Encounter. The data comes from all DC treatment facilities. Date/Time Radiology Report Provider Source Apr 24, 2024 02:13 PM ABSCESS DRAIN PLAC EMENT PERITONEAL (P): FLACA WEAVER [id number] -1950 M Exm Date: APR 24, 2024@14:13 Req Phys: TAURUS WOOD Loc: 3K04-24-2024@16:07 Img Loc: INTERVENTIONAL RADIOLOGY Service: PRIMARY [place] [address] (Case [id number] COMPLETE) IR PERITONEAL/RETROPERITONEAL PER(ANI Detailed) CPT:78882 Reason for Study: diverticular abscess Clinical History: [...] any questions or notifications of critical findings: [id number] If ordering provider is a trainee, enter the name and contact information of the responsible staff physician. Palmira Graves MD LAST CREATININE 0.7 (04/23/24) Report Status: Verified Date Reported: APR 24, 2024 Date Verified: APR 24, 2024 Mental Health Tech E-Sig:/ES/SADIA DEE MD Report: PROCEDURES: Placement of [...] anesthesia. Using real-time CT fluoroscopy, a 5 [place]ar[place] Yueh catheter was advanced into the collection in the left lower quadrant. A wire was coiled in the collection. The tract into the collection was dilated to accommodate the 12 [place]araguan locking pigtail drainage catheter. The catheter was secured to the skin with monofilament suture and connected to JUAN bulb suction. Impression: Successful placement of a 12 [place]ar[place]uan locking pigtail drainage catheter in the left lower quadrant abscess. This catheter is connected to JUAN bulb suction with flushes, as ordered. I, SADIA DEE, have reviewed the images and report. Primary Interpreting Staff: SADIA DEE MD, RADIOLOGIST (Mental Health Tech) Primary Interpreting Resident: JEFFREY FLOWER MD, GLUE MACHINE OPERATOR /SADIA SNYDER [facility] Apr 24, 2024 02:[address] NEEDLE PLACEMEN T (P): FLACA WEAVER [id number] -1950 M Ex Date: APR 24, 2024@14:11 Req Phys: TAURUS WOOD Loc: 3KS/04-24-2024@16:07 Im Loc: CT IMAGING Service: [place]IMARY [place] [address] (Case [id number] COMPLETE) CT SCAN FOR NEEDLE PLACEMENT (CT Detailed) CPT:04992 Reason for Study: diverticular abscess Clinical History: Report Status: Verified Date Reported: APR 24, 2024 Date Verified: APR 24, 2024 Mental Health Tech E-Sig:/ES/SADIA DEE MD Report: PROCEDURES: Placement of [...] anesthesia. Using real-time CT fluoroscopy, a 5 [place]araguan Yueh catheter was advanced into the collection in the left lower quadrant. A wire was coiled in the collection. The tract into the collection was dilated to accommodate the 12 [place]araguan locking pigtail drainage catheter. The catheter was secured to the skin with monofilament suture and connected to JUAN bulb suction. Impression: Successful placement of a 12 [place]araguan locking pigtail drainage catheter in the left lower quadrant abscess. This catheter is connected to JUAN bulb suction with flushes, as ordered. I, SADIA DEE, have reviewed the images and report. Primary Interpreting Staff: SADIA DEE MD, RADIOLOGIST (Mental Health Tech) Primary Interpreting Resident: JEFFREY FLOWER MD, GLUE MACHINE OPERATOR /SADIA SNYDER [facility] Apr 23, 2024 06:[address] ABDOMEN/ PELVIS: MEGFLACA YAMIL [id number] -1950 M Exm Date: APR 23, 2024@06:36 Req Phys: MCKAY VICTOR Pat Loc: 04-24-2024@10:25 [facility] Loc: OUTSOURCE CT Service: Unknown (Case [id number] COMPLETE) NON DC CT ABDOMEN/PELVIS (CT Detailed) CPT:45719 Reason for Study: OUTSIDE STUDY Clinical History: OUTSIDE STUDY Report Status: Electronically Filed Date Reported: APR 24, 2024 Report: This is an outside Imaging study and/or report imported for continuity of patient care. This Imaging study and/or report was not reviewed or verified by a DC Radiologist. Impression: This is an outside Imaging study and/or report imported for continuity of patient care. This Imaging study and/or report was not reviewed or verified by a DC Radiologist. Primary Diagnostic Code: VERIFIED BY: / *ELECTRONICALLY FILED* [facility] Pathology Reports: +/- 30 days of the [...] the Encounter. The data comes from all DC treatment facilities. Date/Time Pathology Report Provider Source Apr 21, 2024 07:28 AM LR MICROBIOLOGY RE PORT: Reporting Lab: [facility] [CLIA# [id number]] [place] [address] Accession [UID]: [id number] [[id number]] Received: Apr 21, 2024@08:16 Collection sample: URINE Collection date: Apr 21, 2024 07:28 Provider: ANANDA HUGGINS Comment on specimen: RECEIVED IN STERILE CUP Test(s) ordered: CULTURE & SUSCEPTIBILITY...... completed: Apr 22, 2024 * BACTERIOLOGY FINAL REPORT => Apr 22, 2024 08:38 TECH CODE: [id number] CULTURE RESULTS: NO GROWTH 24 HOURS Bacteriology Remark(s): THIS REPORT IS FINAL =--=--=--=--=--=--=--=--=--=--=--=- -=--=--=--=--=--=--=--=--=--=--=--= --=--=-- Performing Laboratory: Bacteriology Report Performed By: [facility] [CLIA# [id number]] [address] [place] [address] [facility]
--- OUTSIDE RECORDS SUMMARY | 2024-05-04 01:03 | XMS_ITS | Encounter Summary ---
Author Name [facility] Address [address] [place] [address] Care Team Providers Care Voice Over Announcer Name Role Phone JATINDER BENITEZ Primary Care [...] PART A Sep 29, 2016 PART A [id number] JUDY WEAVER PATIENT Selected Encounter This section includes the information on record at [place] for the Encounter. Date/Time Encounter Type Encounter Description Reason Provider Source Apr 24, 2024 08:53 AM INJ PERFLUTREN LIP MICROS,ML CARDIAC ECHO ICD-10-CM R94.31 Abnormal electrocardiogram [ECG] [EKG] SARAI BENAVIDES Encounter Template Text not used by [place] Assessments - Encounter Diagnoses This section includes the primary and secondary diagnoses documented for the Encounter. Date/Time Primary/Secondary Diagnosis Diagnosis Name Provider Source Apr 24, 2024 08:54 AM PRIMARY Abnormal electrocardiogram [ECG] [EKG] ROSALINA ANGLIN [facility] Plan of Treatment: Future Appointments (+ 6 months) and Future Tests (+/- 45 days) The Plan of Treatment section includes future care activities for the patient [facility] This section includes future appointments and future orders which are active, pending or scheduled. Future Appointments This section includes appointments that were scheduled to occur 6 months from the date of the Encounter, up to a maximum of 20 appointments. The data comes from all [facility]. Appointment Date/Time Appointment Type Appointme nt Facility Name Apr 27, 2024 02:30 PM AMBULATORY - NONE [facility] May 02, 2024 10:00 AM AMBULATORY - SURGERY [facility] May 04, 2024 09:00 AM AMBULATORY - NONE [facility] May 07, 2024 08:45 AM AMBULATORY - MEDICINE [facility] May 08, 2024 02:00 PM AMBULATORY - NONE [facility] May 09, 2024 07:30 AM AMBULATORY - SURGERY [facility] May 15, 2024 08:30 AM AMBULATORY MEDICINE [facility] Active, Pending, and Scheduled Orders This section includes a listing of several types of active, pending, and scheduled orders, including clinic medications orders, diagnostic test orders, procedure orders and consult orders; where the start date of the order is 45 days before the date of the Encounter or 45 days after the date of theEncounter. The data comes from all [facility]. Test Date/Time Test Type Test Details Facility Name Apr 26, 2024 10:10 AM Laboratory - Microbiology Order CULTURE & SUSCEPTIBILITY WOUND OTHER WC ONCE ~For Test: CULTURE & SUSCEPTIBILITY ~Culture sample from JUAN drain output [facility] Apr 26, 2024 10:10 AM Laboratory - Microbiology Order GRAM STAIN WOUND OTHER WC ONCE ~For Test: GRAM STAIN ~JUAN drain culture/gram stain [facility] Apr 27, 2024 02:30 PM Imaging - Ultrasound Order US AORTA (P) [facility] May 04, 2024 12:00 AM Laboratory - Chemistry Order BASIC METABOLIC PANEL+MG PLASMA SP ONCE [facility] May 08, 2024 02:00 PM Imaging - CT Scan Order CT (AP) ABDOMEN/PELVIS (P) LISANDRO [facility] Lab Results: +/- 30 days of the encounter This section includes the Chemistry and Hematology Lab Results on record with [place] for the patient. Radiology Reports and Pathology Reports are provided separately, in subsequent sections. Lab Results This section contains the Chemistry/Hematology Results that were resulted 30 days before or 30 daysafter the date of the Encounter. Date/Time Source Result Type Result - Unit Interpretation Reference Range Comment Apr 26, 2024 07:16 AM [facility] BASIC METABOLIC PANEL+MG Specimen Type: PLASMA No comment entered. Ordering Provider: JONO RANDOLPH Report Released Date/Time: Apr 25, 2024 02:50 PM Reporting Lab: [facility] [address] Performing Lab: [facility] [address] CREATININE 0.7 mg/dL 0.7-1.2 UREA NITROGEN 15 mg/dL 8-26 GLUCOSE 106 mg/dL H 70-100 SODIUM 139 mmol/L 136-145 POTASSIUM 3.4 mmol/L L 3.5-5.1 CHLORIDE 105 mmol/L 98-107 CO2 25 mmol/L 22-29 CALCIUM 8.5 mg/dL 8.4-10.2 MAGNESIUM 2.2 mg/dL 1.6-2.6 ANION GAP 9 mmol/L 5-15 .CREAT EGFR(CKD-EPI) >90 >60 Apr 25, 2024 05:10 PM [facility] BASIC METABOLIC PANEL+MG Specimen Type: PLASMA No comment entered. Ordering Provider: GIOVANNI ADLER Report Released Date/Time: Apr 25, 2024 05:04 PM Reporting Lab: [facility] [id number] Performing Lab: [facility] [address] CREATININE 0.7 mg/dL 0.7-1.2 UREA NITROGEN 15 mg/dL 8-26 GLUCOSE 104 mg/dL H 70-100 SODIUM 139 mmol/L 136-145 POTASSIUM 3.2 mmol/L L 3.5-5.1 CHLORIDE 103 mmol/L 98-107 CO2 28 mmol/L 22-29 CALCIUM 8.5 mg/dL 8.4-10.2 MAGNESIUM 2.2 mg/dL 1.6-2.6 ANION GAP 8 mmol/L 5-15 .CREAT EGFR(CKD-EPI) >90 >60 Apr 25, 2024 07:46 AM [facility] BASIC METABOLIC PANEL+MG Specimen Type: PLASMA No comment entered. Ordering Provider: GIOVANNI ADLER Report Released Date/Time: Apr 24, 2024 12:37 PM Reporting Lab: [facility] [phone] Performing Lab: [facility] [address] CREATININE 0.7 mg/dL 0.7-1.2 UREA NITROGEN 14 mg/dL 8-26 GLUCOSE 127 mg/dL H 70-100 SODIUM 139 mmol/L 136-145 POTASSIUM 2.9 mmol/L L 3.5-5.1 CHLORIDE 101 mmol/L 98-107 CO2 29 mmol/L 22-29 CALCIUM 8.7 mg/dL 8.4-10.2 MAGNESIUM 2.3 mg/dL 1.6-2.6 ANION GAP 9 mmol/L 5-15 .CREAT EGFR(CKD-EPI) >90 >60 Apr 24, 2024 04:42 PM [facility] BASIC METABOLIC PANEL+MG Specimen Type: PLASMA No comment entered. Ordering Provider: GIOVANNI ADLER Report Released Date/Time: Apr 24, 2024 12:37 PM Reporting Lab: [facility] [address] Performing Lab: [facility] [address] CREATININE 0.7 mg/dL 0.7-1.2 UREA NITROGEN 16 mg/dL 8-26 GLUCOSE 97 mg/dL 70-100 SODIUM 138 mmol/L 136-145 POTASSIUM 2.7 mmol/L L 3.5-5.1 CHLORIDE 99 mmol/L 98-107 CO2 30 mmol/L H 22-29 CALCIUM 8.4 mg/dL 8.4-10.2 MAGNESIUM 2.1 mg/dL 1.6-2.6 ANION GAP 9 mmol/L 5-15 .CREAT EGFR(CKD-EPI) >90 >60 Apr 24, 2024 07:36 AM [facility] BASIC METABOLIC PANEL+MG Specimen Type: PLASMA Comment: Critical Value Reported To: Cait Zamorano RN 8-27-24@08[facility]. Critical value report confirmed. Ordering Provider: AARON VICTOR Report Released Date/Time: Apr 23, 2024 05:30 PM Reporting Lab: [facility] [phone] Performing Lab: [facility] [address] CREATININE 0.7 mg/dL 0.7-1.2 UREA NITROGEN 16 mg/dL 8-26 GLUCOSE 105 mg/dL H 70-100 SODIUM 138 mmol/L 136-145 POTASSIUM 2.3 mmol/L LL 3.5-5.1 CHLORIDE 98 mmol/L 98-107 CO2 29 mmol/L 22-29 CALCIUM 8.3 mg/dL L 8.4-10.2 MAGNESIUM 2.2 mg/dL 1.6-2.6 ANION GAP 11 mmol/L 5-15 .CREAT EGFR(CKD-EPI) >90 >60 Apr 24, 2024 07:35 AM [facility] CBC & DIFF Specimen Type: BLOOD Comment: Automated Differential Performed Ordering Provider: AARON VICTOR Report Released Date/Time: Apr 23, 2024 05:30 PM Reporting Lab: [facility] [address] Performing Lab: [facility] [address] WBC 10.49 10*3/uL 4.0-11.0 RBC 3.83 10*6/uL [...] 10*3/uL 0-0.1 Apr 23, 2024 01:20 PM [facility] LACTIC ACID Specimen Type: PLASMA No comment entered. Ordering Provider: AARON VICTOR Report Released Date/Time: Apr 23, 2024 12:05 PM Reporting Lab: [facility] [address] Performing Lab: [facility] [address] LACTIC ACID 1.5 mmol/L 0.5-2.2 Apr 23, 2024 01:20 PM [facility] PROTHROMBIN TIME/INR Specimen Type: PLASMA No comment entered. Ordering Provider: AARON VICTOR Report Released Date/Time: Apr 23, 2024 12:05 PM Reporting Lab: [facility] [address] Performing Lab: [facility] [address] .INR 1.2 H 0.8-1.1 .PT 14.5 s H 9.4-12.5 Apr 23, 2024 01:20 PM [facility] ACT PART THROMBO TIME Specimen Type: PLASMA No comment entered. Ordering Provider: AARON VICTOR Report Released Date/Time: Apr 23, 2024 12:05 PM Reporting Lab: [facility] [address] Performing Lab: [facility] [address] APTT 29.3 s 25.1-36.5 Apr 23, 2024 01:20 PM [facility] COMPREHENSIVE METABOLIC PANEL+MG Specimen Type: PLASMA No comment entered. Ordering Provider: AARON VICTOR Report Released Date/Time: Apr 23, 2024 12:05 PM Reporting Lab: [facility] [address] Performing Lab: [facility] [address] CREATININE 0.7 mg/dL 0.7-1.2 UREA NITROGEN 19 [...] >90 >60 Apr 23, 2024 01:20 PM [facility] CBC & DIFF Specimen Type: BLOOD Comment: Automated Differential Performed Ordering Provider: AARON VICTOR Report Released Date/Time: Apr 23, 2024 12:05 PM Reporting Lab: [facility] [address] Performing Lab: [facility] [address] WBC 12.50 10*3/uL H 4.0-11.0 RBC 4.07 [...] 10*3/uL 0-0.1 Apr 21, 2024 07:28 AM [facility] URINALYSIS Specimen Type: URINE No comment entered. Ordering Provider: ANANDA HUGGINS Report Released Date/Time: Apr 21, 2024 07:37 AM Reporting Lab: [facility] [address] Performing Lab: [facility] [address] [facility] [address] URINE COLOR COLORLESS SPECIFIC GRAVITY 1.009 1.003-1.03 [...] Source Apr 24, 2024 10:48 PM 5 [facility] Apr 24, 2024 06:35 PM 5 [facility] Apr 24, 2024 04:00 PM 59 147/71 14 0 [facility] Apr 24, 2024 12:15 PM 0 [facility] Apr 24, 2024 10:12 AM 4 [facility] Social History: Smoking Status (Most current) and Tobacco Use (All prior to encounter date) This section includes the most current, and the historical, smoking and tobacco- related health factors from the [place] facility where the Encounter took place. Current Smoking Status This section includes the most current smoking, or tobacco-related health factor, from the [place] facility where the Encounter took place. Date/Time Current Smoking Status Comment Facil ity May 06, 2023 11:30 AM VA-TOBACCO QUIT 15 YRS OR MORE [facility] Tobacco Use History This section includes a history of the smoking, or tobacco-related health factors, that were collected on or before the date of the Encounter. The data comes from the [place] facility where the Encounter took place. Date/Time Smoking Status/Tobacco Use Comment F acility May 06, 2023 11:30 AM VA-TOBACCO QUIT 15 YRS OR MORE [facility] Jun 04, 2022 09:00 AM 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 [facility] Jun 04, 2022 09:00 AM VA-TOBACCO QUIT 15 YRS OR MORE [facility] Jul 10, 2021 08:00 AM 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 [facility] Jul 10, 2021 08:00 AM VA-TOBACCO QUIT 5 TO < 15 YRS [facility] May 23, 2020 08:30 AM 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 [facility] May 23, 2020 08:30 AM VA-TOBACCO QUIT 5 TO < 15 YRS [facility] Mar 20, 2019 04:03 PM 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 [facility] Mar 20, 2019 04:03 PM VA-TOBACCO QUIT 5 TO < 15 YRS [facility] Mar 21, 2018 08:13 AM FORMER TOBACCO USER 7Y OR GREATE R [facility] Feb 24, 2017 09:24 AM FORMER TOBACCO USER 7Y OR GREATE R [facility] January 07, 2016 08:01 AM FORMER TOBACCO USE >1Y <7Y [facility] Feb 03, 2015 07:58 AM FORMER TOBACCO USE <1Y [facility] Feb 26, 2014 08:41 AM CURRENT TOBACCO USER [facility] May 13, 2011 01:45 PM CURRENT TOBACCO USER [facility] Advance Directives: All historical and current Section Date Range: From patient's date of to the date document was created. This section includes ALL of a patient's completed or amended [place] Advance and Rescinded Directives. The entries below indicate that a directive exists for the patient, but an actual copy is not included with this document. The data comes from all [facility]. Date Advance Directives Provider Source Mar 23, 2016 CLINICAL WARNING GOLDIETIM HINDS [facility] Radiology Reports: +/- 30 days of [...] the Encounter. The data comes from all [place] treatment facilities. Date/Time Radiology Report Provider Source Apr 24, 2024 02:13 PM ABSCESS DRAIN PLAC EMENT PERITONEAL (P): FLACA WEAVER [id number] -1950 M Exm Date: APR 24, 2024@14:13 Req Phys: TAURUS WOOD Loc: 3K04-24-2024@16:07 Img Loc: INTERVENTIONAL RADIOLOGY Service: PRIMARY [place] [address] (Case [id number] COMPLETE) IR PERITONEAL/RETROPERITONEAL PER(ANI Detailed) CPT:46656 Reason for Study: diverticular abscess Clinical History: [facility] IS NOT under investigation for COVID-19 or is COVID-19 negative 73yo M with hx of recurrent diverticulitis, transferred from [facility] 04/[address] 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 Palmira Graves MD LAST CREATININE 0.7 (04/23/24) Report Status: Verified Date Reported: APR 24, 2024 Date Verified: APR 24, 2024 Angiography Nurse E-Sig:/ES/SADIA DEE MD Report: PROCEDURES: Placement of [...] anesthesia. Using real-time CT fluoroscopy, a 5 German Yueh catheter was advanced into the collection in the left lower quadrant. A wire was coiled in the collection. The tract into the collection was dilated to accommodate the 12 German locking pigtail drainage catheter. The catheter was secured to the skin with monofilament suture and connected to JUAN bulb suction. Impression: Successful placement of a 12 German locking pigtail drainage catheter in the left lower quadrant abscess. This catheter is connected to JUAN bulb suction with flushes, as ordered. I, SADIA DEE, have reviewed the images and report. Primary Interpreting Staff: SADIA DEE MD, RADIOLOGIST (Angiography Nurse) Primary Interpreting Resident: JEFFREY FLOWER MD, DRIVER GUARD /SADIA SNYDER [facility] Apr 24, 2024 02:[address] NEEDLE PLACEMEN T (P): FLACA WEAVER [id number] -1950 M Exm Date: APR 24, 2024@14:11 Req Phys: TAURUS WOOD Loc: 04-24-2024@16:07 Img Loc: CT IMAGING Service: [place] [address] (Case [id number] COMPLETE) CT SCAN FOR NEEDLE PLACEMENT (CT Detailed) CPT:74028 Reason for Study: diverticular abscess Clinical History: Report Status: Verified Date Reported: APR 24, 2024 Date Verified: APR 24, 2024 Angiography Nurse E-Sig:/ES/SADIA DEE MD Report: PROCEDURES: Placement of [...] anesthesia. Using real-time CT fluoroscopy, a 5 German Magency Digitaleh catheter was advanced into the collection in the left lower quadrant. A wire was coiled in the collection. The tract into the collection was dilated to accommodate the 12 German locking pigtail drainage catheter. The catheter was secured to the skin with monofilament suture and connected to JUAN bulb suction. Impression: Successful placement of a 12 German locking pigtail drainage catheter in the left lower quadrant abscess. This catheter is connected to JUAN bulb suction with flushes, as ordered. I, SADIA DEE, have reviewed the images and report. Primary Interpreting Staff: SADIA DEE MD, RADIOLOGIST (Angiography Nurse) Primary Interpreting Resident: JEFFREY FLOWER MD, DRIVER GUARD /SADIA SNYDER [facility] Apr 23, 2024 06:[address] ABDOMEN/ PELVIS: FLACA WEAVER [id number] -1950 M Exm Date: APR 23, 2024@06:36 Req Phys: FREDDYEMMAMCKAY Keith Pat Loc: 3K04-24-2024@10:25 Img Loc: OUTSOURCE CT Service: Unknown (Case [id number] COMPLETE) NON VA CT ABDOMEN/PELVIS (CT Detailed) CPT:32524 Reason for Study: OUTSIDE STUDY Clinical History: OUTSIDE STUDY Report Status: Electronically Filed Date Reported: APR 24, 2024 Report: This is an outside Imaging study and/or report imported for continuity of patient care. This Imaging study and/or report was not reviewed or verified by a [place] Radiologist. Impression: This is an outside Imaging study and/or report imported for continuity of patient care. This Imaging study and/or report was not reviewed or verified by a [place] Radiologist. Primary Diagnostic Code: VERIFIED BY: / *ELECTRONICALLY FILED* [facility] Pathology Reports: +/- 30 days [...] the Encounter. The data comes from all [place] treatment facilities. Date/Time Pathology Report Provider Source Apr 21, 2024 07:28 AM LR MICROBIOLOGY RE PORT: Reporting Lab: [facility] [CLIA# [id number]] [place] [address] Accession [UID]: [id number] [[id number]] Received: Apr 21, 2024@08:16 Collection sample: URINE Collection date: Apr 21, 2024 07:28 Provider: ANANDA HUGGINS Comment on specimen: RECEIVED IN STERILE CUP Test(s) ordered: CULTURE & SUSCEPTIBILITY...... completed: Apr 22, 2024 * BACTERIOLOGY FINAL REPORT => Apr 22, 2024 08:38 TECH CODE: [id number] CULTURE RESULTS: NO GROWTH 24 HOURS Bacteriology Remark(s): THIS REPORT IS FINAL =--=--=--=--=--=--=--=--=--=--=--=- -=--=--=--=--=--=--=--=--=--=--=--= --=--=-- Performing Laboratory: Bacteriology Report Performed By: [facility] [CLIA# [id number]] [place] [address] [facility]
--- OUTSIDE RECORDS SUMMARY | 2024-05-04 01:03 | XMS_ITS | Encounter Summary ---
Author Name [facility] [facility] [place] Address [address] [place] [address] Care Team Providers Care Head Tennis Coach Name Role Phone JATINDER BENITEZ Primary Care [...] PART A Sep 29, 2016 PART A [id number] [phone] JUDY WEAVER PATIENT Selected Encounter This section includes the information on record at [place] for the Encounter. 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 This section includes future appointments and future orders which are active, pending or scheduled. Future Appointments This section includes appointments that were scheduled to occur 6 months from the date of the Encounter, up to a maximum of 20 appointments. The data comes from all [facility]. Appointment Date/Time Appointment Type Appointme nt Facility Name Apr 27, 2024 02:30 PM AMBULATORY - NONE [facility] May 02, 2024 10:00 AM AMBULATORY - SURGERY [facility] May 04, 2024 09:00 AM AMBULATORY - NONE [facility] May 07, 2024 08:45 AM AMBULATORY - MEDICINE [facility] May 08, 2024 02:00 PM AMBULATORY - NONE [facility] May 09, 2024 07:30 AM AMBULATORY - SURGERY [facility] May 15, 2024 08:30 AM AMBULATORY MEDICINE [facility] Active, Pending, and Scheduled Orders This section includes a listing of several types of active, pending, and scheduled orders, including clinic medications orders, diagnostic test orders, procedure orders and consult orders; where the start date of the order is 45 days before the date of the Encounter or 45 days after the date of theEncounter. The data comes from all [facility]. Test Date/Time Test Type Test Details Facility Name Apr 26, 2024 10:10 AM Laboratory - Microbiology Order CULTURE & SUSCEPTIBILITY WOUND OTHER WC ONCE ~For Test: CULTURE & SUSCEPTIBILITY ~Culture sample from JUAN drain output [facility] Apr 26, 2024 10:10 AM Laboratory - Microbiology Order GRAM STAIN WOUND OTHER WC ONCE ~For Test: GRAM STAIN ~JUAN drain culture/gram stain [facility] Apr 27, 2024 02:30 PM Imaging - Ultrasound Order US AORTA (P) [facility] May 04, 2024 12:00 AM Laboratory - Chemistry Order BASIC METABOLIC PANEL+MG PLASMA SP ONCE [facility] May 08, 2024 02:00 PM Imaging - CT Scan Order CT (AP) ABDOMEN/PELVIS (P) LISANDRO [facility] Lab Results: +/- 30 days of [...] Range Comment Apr 26, 2024 07:16 AM [facility] BASIC METABOLIC PANEL+MG Specimen Type: PLASMA No comment entered. Ordering Provider: JONO RANDOLPH Report Released Date/Time: Apr 25, 2024 02:50 PM Reporting Lab: [facility] [phone] Performing Lab: [facility] [phone] CREATININE 0.7 mg/dL 0.7-1.2 UREA NITROGEN 15 mg/dL 8-26 GLUCOSE 106 mg/dL H 70-100 SODIUM 139 mmol/L 136-145 POTASSIUM 3.4 mmol/L L 3.5-5.1 CHLORIDE 105 mmol/L 98-107 CO2 25 mmol/L 22-29 CALCIUM 8.5 mg/dL 8.4-10.2 MAGNESIUM 2.2 mg/dL 1.6-2.6 ANION GAP 9 mmol/L 5-15 .CREAT EGFR(CKD-EPI) >90 >60 Apr 25, 2024 05:10 PM [facility] BASIC METABOLIC PANEL+MG Specimen Type: PLASMA No comment entered. Ordering Provider: GIOVANNI ADLER Report Released Date/Time: Apr 25, 2024 05:04 PM Reporting Lab: [facility] [phone] Performing Lab: [facility] [address] CREATININE 0.7 mg/dL 0.7-1.2 UREA NITROGEN 15 mg/dL 8-26 GLUCOSE 104 mg/dL H 70-100 SODIUM 139 mmol/L 136-145 POTASSIUM 3.2 mmol/L L 3.5-5.1 CHLORIDE 103 mmol/L 98-107 CO2 28 mmol/L 22-29 CALCIUM 8.5 mg/dL 8.4-10.2 MAGNESIUM 2.2 mg/dL 1.6-2.6 ANION GAP 8 mmol/L 5-15 .CREAT EGFR(CKD-EPI) >90 >60 Apr 25, 2024 07:46 AM [facility] BASIC METABOLIC PANEL+MG Specimen Type: PLASMA No comment entered. Ordering Provider: GIOVANNI ADLER Report Released Date/Time: Apr 24, 2024 12:37 PM Reporting Lab: [facility] [phone] Performing Lab: [facility] [phone] CREATININE 0.7 mg/dL 0.7-1.2 UREA NITROGEN 14 mg/dL 8-26 GLUCOSE 127 mg/dL H 70-100 SODIUM 139 mmol/L 136-145 POTASSIUM 2.9 mmol/L L 3.5-5.1 CHLORIDE 101 mmol/L 98-107 CO2 29 mmol/L 22-29 CALCIUM 8.7 mg/dL 8.4-10.2 MAGNESIUM 2.3 mg/dL 1.6-2.6 ANION GAP 9 mmol/L 5-15 .CREAT EGFR(CKD-EPI) >90 >60 Apr 24, 2024 04:42 PM [facility] BASIC METABOLIC PANEL+MG Specimen Type: PLASMA No comment entered. Ordering Provider: GIOVANNI ADLER Report Released Date/Time: Apr 24, 2024 12:37 PM Reporting Lab: [facility] [phone] Performing Lab: [facility] [address] CREATININE 0.7 mg/dL 0.7-1.2 UREA NITROGEN 16 mg/dL 8-26 GLUCOSE 97 mg/dL 70-100 SODIUM 138 mmol/L 136-145 POTASSIUM 2.7 mmol/L L 3.5-5.1 CHLORIDE 99 mmol/L 98-107 CO2 30 mmol/L H 22-29 CALCIUM 8.4 mg/dL 8.4-10.2 MAGNESIUM 2.1 mg/dL 1.6-2.6 ANION GAP 9 mmol/L 5-15 .CREAT EGFR(CKD-EPI) >90 >60 Apr 24, 2024 07:36 AM [facility] BASIC METABOLIC PANEL+MG Specimen Type: PLASMA Comment: Critical Value Reported To: Cait Zamorano RN 8@[address] [place] [address]. Critical value report confirmed. Ordering Provider: AARON VICTOR Report Released Date/Time: Apr 23, 2024 05:30 PM Reporting Lab: [facility] [phone] Performing Lab: [facility] [address] CREATININE 0.7 mg/dL 0.7-1.2 UREA NITROGEN 16 mg/dL 8-26 GLUCOSE 105 mg/dL H 70-100 SODIUM 138 mmol/L 136-145 POTASSIUM 2.3 mmol/L LL 3.5-5.1 CHLORIDE 98 mmol/L 98-107 CO2 29 mmol/L 22-29 CALCIUM 8.3 mg/dL L 8.4-10.2 MAGNESIUM 2.2 mg/dL 1.6-2.6 ANION GAP 11 mmol/L 5-15 .CREAT EGFR(CKD-EPI) >90 >60 Apr 24, 2024 07:35 AM [facility] CBC & DIFF Specimen Type: BLOOD Comment: Automated Differential Performed Ordering Provider: AARON VICTOR Report Released Date/Time: Apr 23, 2024 05:30 PM Reporting Lab: [facility] [phone] Performing Lab: [facility] [phone] WBC 10.49 10*3/uL 4.0-11.0 RBC 3.83 10*6/uL [...] 10*3/uL 0-0.1 Apr 23, 2024 01:20 PM [facility] LACTIC ACID Specimen Type: PLASMA No comment entered. Ordering Provider: AARON VICTOR Report Released Date/Time: Apr 23, 2024 12:05 PM Reporting Lab: [facility] [phone] Performing Lab: [facility] [address] LACTIC ACID 1.5 mmol/L 0.5-2.2 Apr 23, 2024 01:20 PM [facility] PROTHROMBIN TIME/INR Specimen Type: PLASMA No comment entered. Ordering Provider: AARON VICTOR Report Released Date/Time: Apr 23, 2024 12:05 PM Reporting Lab: [facility] [phone] Performing Lab: [facility] [address] .INR 1.2 H 0.8-1.1 .PT 14.5 s H 9.4-12.5 Apr 23, 2024 01:20 PM [facility] ACT PART THROMBO TIME Specimen Type: PLASMA No comment entered. Ordering Provider: AARON VICTOR Report Released Date/Time: Apr 23, 2024 12:05 PM Reporting Lab: [facility] [phone] Performing Lab: [facility] [address] APTT 29.3 s 25.1-36.5 Apr 23, 2024 01:20 PM [facility] COMPREHENSIVE METABOLIC PANEL+MG Specimen Type: PLASMA No comment entered. Ordering Provider: AARON VICTOR Report Released Date/Time: Apr 23, 2024 12:05 PM Reporting Lab: [facility] [phone] Performing Lab: [facility] [address] CREATININE 0.7 mg/dL 0.7-1.2 UREA NITROGEN 19 [...] >90 >60 Apr 23, 2024 01:20 PM [facility] CBC & DIFF Specimen Type: BLOOD Comment: Automated Differential Performed Ordering Provider: AARON VICTOR Report Released Date/Time: Apr 23, 2024 12:05 PM Reporting Lab: [facility] [address] Performing Lab: [facility] [address] WBC 12.50 10*3/uL H 4.0-11.0 RBC 4.07 [...] 10*3/uL 0-0.1 Apr 21, 2024 07:28 AM [facility] URINALYSIS Specimen Type: URINE No comment entered. Ordering Provider: ANANDA HUGGINS Report Released Date/Time: Apr 21, 2024 07:37 AM Reporting Lab: [facility] [address] Performing Lab: [facility] [address] URINE COLOR COLORLESS SPECIFIC GRAVITY 1.009 1.003-1.03 [...] Source Apr 24, 2024 10:48 PM 5 [facility] Apr 24, 2024 06:35 PM 5 [facility] Apr 24, 2024 04:00 PM 59 147/71 14 0 [facility] Apr 24, 2024 12:15 PM 0 [facility] Apr 24, 2024 10:12 AM 4 [facility] Social History: Smoking Status (Most current) [...] 06, 2023 11:30 AM 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 [facility] Tobacco Use History This section includes a history of the smoking, or tobacco-related health factors, that were collected on or before the date of the Encounter. The data comes from the [place] facility where the Encounter took place. Date/Time Smoking Status/Tobacco Use Comment F tiera May 06, 2023 11:30 AM VA-TOBACCO QUIT 15 YRS OR MORE [facility] Jun 04, 2022 09:00 AM 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 [facility] Jun 04, 2022 09:00 AM VA-TOBACCO QUIT 15 YRS OR MORE [facility] Jul 10, 2021 08:00 AM 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 [facility] Jul 10, 2021 08:00 AM VA-TOBACCO QUIT 5 TO < 15 YRS [facility] May 23, 2020 08:30 AM 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 [facility] May 23, 2020 08:30 AM VA-TOBACCO QUIT 5 TO < 15 YRS [facility] Mar 20, 2019 04:03 PM 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 [facility] Mar 20, 2019 04:03 PM VA-TOBACCO QUIT 5 TO < 15 YRS [facility] Mar 21, 2018 08:13 AM FORMER TOBACCO USER 7Y OR GREATE R [facility] Feb 24, 2017 09:24 AM FORMER TOBACCO USER 7Y OR GREATE R [facility] January 07, 2016 08:01 AM FORMER TOBACCO USE >1Y <7Y [facility] Feb 03, 2015 07:58 AM FORMER TOBACCO USE <1Y [facility] Feb 26, 2014 08:41 AM CURRENT TOBACCO USER [facility] May 13, 2011 01:45 PM CURRENT TOBACCO USER [facility] Advance Directives: All historical and current [...] Mar 23, 2016 CLINICAL WARNING [facility] Radiology Reports: +/- 30 days of [...] DRAIN PLAC EMENT PERITONEAL (P): FLACA WEAVER [id number] -1950 M Exm Date: APR 24, 2024@14:13 Req Phys: TAURUS WOOD Loc: 3K04-24-2024@16:07 Img Loc: INTERVENTIONAL RADIOLOGY Service: PRIMARY CARE - [place] [address] (Case [id number] COMPLETE) IR PERITONEAL/RETROPERITONEAL PER(ANI Detailed) CPT:08283 Reason for Study: diverticular abscess Clinical History: [place] IS NOT under investigation for COVID-19 or is COVID-19 negative 73yo M with hx of recurrent diverticulitis, transferred from [facility] 04/[address] 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 Found to have 2nd degree heart block, planning pacemaker placement Contact number for responsible provider who can be reached for any questions or notifications of critical findings: [phone] If ordering provider is a trainee, enter the name and contact information of the responsible staff physician. Palmira Powell MD LAST CREATININE 0.7 (04/23/24) Report Status: Verified Date Reported: APR 24, 2024 Date Verified: APR 24, 2024 Brake Repairer E-Sig:/ES/SADIA DEE MD Report: PROCEDURES: Placement of [...] anesthesia. Using real-time CT fluoroscopy, a 5 Botswanan Yueh catheter was advanced into the collection in the left lower quadrant. A wire was coiled in the collection. The tract into the collection was dilated to accommodate the 12 Botswanan locking pigtail drainage catheter. The catheter was secured to the skin with monofilament suture and connected to JUAN bulb suction. Impression: Successful placement of a 12 Botswanan locking pigtail drainage catheter in the left lower quadrant abscess. This catheter is connected to JUAN bulb suction with flushes, as ordered. I, SADIA DEE, have reviewed the images and report. Primary Interpreting Staff: SADIA DEE MD, RADIOLOGIST (Brake Repairer) Primary Interpreting Resident: JEFFREY FLOWER MD, AGENCY LEGAL COUNSEL /SADIA SNYDER [facility] Apr 24, 2024 02:[address] NEEDLE PLACEMEN T (P): FLACA WEAVER [id number] -1950 M Exm Date: APR 24, 2024@14:11 Req Phys: TAURUS WOOD Loc: 3KS/04-24-2024@16:07 Img Loc: CT IMAGING Service: PRIMARY CARE - [place] [address] (Case [id number] COMPLETE) CT SCAN FOR NEEDLE PLACEMENT (CT Detailed) CPT:79597 Reason for Study: diverticular abscess Clinical History: Report Status: Verified Date Reported: APR 24, 2024 Date Verified: APR 24, 2024 Brake Repairer E-Sig:/ES/SADIA DEE MD Report: PROCEDURES: Placement of [...] anesthesia. Using real-time CT fluoroscopy, a 5 Botswanan ilohoeh catheter was advanced into the collection in the left lower quadrant. A wire was coiled in the collection. The tract into the collection was dilated to accommodate the 12 Botswanan locking pigtail drainage catheter. The catheter was secured to the skin with monofilament suture and connected to JUAN bulb suction. Impression: Successful placement of a 12 Botswanan locking pigtail drainage catheter in the left lower quadrant abscess. This catheter is connected to JUAN bulb suction with flushes, as ordered. I, SADIA DEE, have reviewed the images and report. Primary Interpreting Staff: SADIA DEE MD, RADIOLOGIST (Brake Repairer) Primary Interpreting Resident: JEFFREY FLOWER MD, AGENCY LEGAL COUNSEL /SADIA SNYDER [facility] Apr 23, 2024 06:[address] ABDOMEN/ PELVIS: FLACA WEAVER [id number] -1950 M Exm Date: APR 23, 2024@06:36 Req Phys: MCKAY VICTOR Pat Loc: 3K04-24-2024@10:25 Img Loc: OUTSOURCE CT Service: Unknown (Case [id number] COMPLETE) NON VA CT ABDOMEN/PELVIS (CT Detailed) CPT:85596 Reason for Study: OUTSIDE STUDY Clinical History: [...] Diagnostic Code: VERIFIED BY: / *ELECTRONICALLY FILED* [facility] Pathology Reports: +/- 30 days of [...] AM LR MICROBIOLOGY RE PORT: Reporting Lab: [facility] [CLIA# [id number]] [place] [address] Accession [UID]: [id number] [[id number]] Received: Apr 21, 2024@08:16 Collection sample: URINE Collection date: Apr 21, 2024 07:28 Provider: ANANDA HUGGINS Comment on specimen: RECEIVED IN STERILE CUP Test(s) ordered: CULTURE & SUSCEPTIBILITY...... completed: Apr 22, 2024 * BACTERIOLOGY FINAL REPORT => Apr 22, 2024 08:38 TECH CODE: [id number] CULTURE RESULTS: NO GROWTH 24 HOURS Bacteriology Remark(s): THIS REPORT IS FINAL =--=--=--=--=--=--=--=--=--=--=--=- -=--=--=--=--=--=--=--=--=--=--=--= --=--=-- Performing Laboratory: Bacteriology Report Performed By: [facility] [CLIA# [id number]] [address] [place] [address] [facility] Encounter Notes: All associated encounter notes This section contains the clinical notes associated to the Encounter. Date/Time Encounter Note(s) Provider Source Apr 24, 2024 08:00 AM COLON & RECTAL ELISA BRAEDEN NOTE: LOCAL TITLE: COLON-RECTAL INPT PROGRESS NOTE STANDARD TITLE: COLON & RECTAL SURGERY NOTE DATE OF NOTE: APR 24, 2024@08:00 ENTRY DATE: APR 24, 2024@10:48:27 AUTHOR: JULIO RUHS EXP COSIGNER: URGENCY: STATUS: COMPLETED COLON-RECTAL INPT PROGRESS NOTE Has ADDENDA INPATIENT PROGRESS NOTE Assessment/Plan: 73 Y M admitted with PMH diverticulitis over the past 8 years, HTN, JUANJOSE, CAD, AAA, 2nd deg Heart block presented to ED w diverticulitis with colovesical fistula and adjacent abscess; confirmed on CT AP w IV. Abdomen remains non peritonitic. Vitals and labs remain stable with pt on abx.Patient remains NPO with IV Zosyn. No acute surgical intervention indicated at this time. Recommend IR drain placement for abscess. Plan: - Continue NPO, IVF - Continue IV antibiotics - Continue mathew if needed, otherwise can likely dc after IR abscess aspiration - IR consult to consider placement of drain into pelvic abscess - No acute surgical intervention indicated at this time - Defer remainder of cares to medicine team - Colorectal surgery will continue to follow. Page if questions/concerns. Julio Rush DO PGY2 General Surgery Dr. Charles, CRS fellow, saw and evaluated the patient with me, and agrees with the findings, assessment and plan as outlined. The patient's history, findings, assessment and plan were discussed with Dr. Powell, who agrees with the plan. Subjective: NAOE. Patient ambulating without difficulty. C/o lower abdominal pain. Frustration over no surgery prior. Amenable to further operative debridement as he is tired of the recurrences. Mathew in place. Amenable to IR drainage. Objective: General: Awake, Alert, Oriented X3, No apparent distress HEENT: extra ocular movement intact, no scleral icterus Cardio: RRR, extremities warm and well perfused Lungs: No respiratory distress on RA Abd: Soft, appropriately tender, mild distension, no skin changes Extrem: No visible deformity Neuro: No focal deficits Active Medications: Active Inpatient Medications (including Supplies): [...] EACH USE, MINIMUM ACTIVE OF EVERY SHIFT. Labs: - INR: INR 1.2 H PLASMA (04/23/24 13:20) - Complete Blood Count White count: WBC 10.49 (04/24/24) Hemoglobin: HGB 12.1 L (04/24/24) Hematocrit: HCT 35.7 L (04/24/24) Platelets: PLT 282 (04/24/24) - Complete Metabolic Panel SODIUM 138 (04/24/24) POTASSIUM 2.3 L* (04/24/24) CHLORIDE 98 (04/24/24) CO2 29 (04/24/24) UREA NITROGEN 16 (04/24/24) CREATININE 0.7 (04/24/24) GLUCOSE 105 H (04/24/24) CALCIUM 8.3 L (04/24/24) MAGNESIUM 2.2 (04/24/24) EGFR (04/01) 07/10/2021@0641 74 CREATININE EGFR (CKD-EPI) 04/24/2024@0530 >90 AST/SGOT 28 (04/23/24) ALT/SGPT 19 (04/23/24) ALK PHOSPHATASE 68 (04/23/24) ALBUMIN 3.6 (04/23/24) BILIRUBIN, TOTAL 0.7 (04/23/24) Imaging No new imaging /alexi/ JULIO RUSH Resident - Surgery Signed: 04/24/2024 10:54 Receipt Acknowledged By: 04/24/2024 17:50 /alexi/ PALMIRA POWELL MD STAFF SURGEON, COLON/RECTAL 04/24/2024 ADDENDUM STATUS: COMPLETED pt at IR when attempted to see patient on rounds. discussed patient with resident and agree with assessment and plan. Total time spent: 35min /alexi/ PALMIRA POWELL MD STAFF SURGEON, COLON/RECTAL Signed: 04/24/2024 17:48 JULIO RUSH [facility]
--- OUTSIDE RECORDS SUMMARY | 2024-05-04 01:03 | XMS_ITS | Encounter Summary ---
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 Date/Time Encounter Type Encounter Description Reason Provider Source Apr 24, 2024 08:46 AM Inpatient Visit CARDIAC ECHO CAITLIN BENAVIDES Encounter Template Text not used by AL Plan of Treatment: Future Appointments (+ 6 months) and Future Tests (+/- 45 days) The Plan of Treatment section includes future care activities for the patient from all [place] treatmentfacilities. This section includes future appointments and future orders which are active, pending or scheduled. Future Appointments This section includes appointments that were scheduled to occur 6 months from the date of the Encounter, up to a maximum of 20 appointments. The data comes from all [place] treatment facilities. Appointment Date/Time Appointment Type Appointme nt Facility Name Apr 27, 2024 02:30 PM [facility] May 02, 2024 10:00 AM AMBULATORY - SURGERY [facility] May 04, 2024 09:00 AM AMBULATORY - NONE [facility] May 07, 2024 08:45 AM AMBULATORY - MEDICINE [facility] May 08, 2024 02:00 PM AMBULATORY - NONE [facility] May 09, 2024 07:30 AM AMBULATORY - SURGERY [facility] May 15, 2024 08:30 AM AMBULATORY - MEDICINE [facility] Active, Pending, and Scheduled Orders This section includes a listing of several types of active, pending, and scheduled orders, including clinic medications orders, diagnostic test orders, procedure orders and consult orders; where the start date of the order is 45 days before the date of the Encounter or 45 days after the date of theEncounter. The data comes from all [place] treatment [facility]. Test Date/Time Test Type Test Details Facility Name Apr 26, 2024 10:10 AM Laboratory - Microbiology Order CULTURE & SUSCEPTIBILITY WOUND OTHER WC ONCE ~For Test: CULTURE & SUSCEPTIBILITY ~Culture sample from JUAN drain output [facility] Apr 26, 2024 10:10 AM Laboratory - Microbiology Order GRAM STAIN WOUND OTHER WC ONCE ~For Test: GRAM STAIN ~JUAN drain culture/gram stain [facility] Apr 27, 2024 02:30 PM Imaging - Ultrasound Order US AORTA (P) [facility] May 04, 2024 12:00 AM Laboratory - Chemistry Order BASIC METABOLIC PANEL+MG PLASMA SP ONCE [facility] May 08, 2024 02:00 PM Imaging - CT Scan Order CT (AP) ABDOMEN/PELVIS (P) LISANDRO [facility] Lab Results: +/- 30 days of the encounter This section includes the Chemistry and Hematology Lab Results on record with [place] for the patient. Radiology Reports and Pathology Reports are provided separately, in subsequent sections. Lab Results This section contains the Chemistry/Hematology Results that were resulted 30 days before or 30 daysafter the date of the Encounter. Date/Time Source Result Type Result - Unit Interpretation Reference Range Comment Apr 26, 2024 07:16 AM [facility] BASIC METABOLIC PANEL+MG Specimen Type: PLASMA No comment entered. Ordering Provider: JONO RANDOLPH Report Released Date/Time: Apr 25, 2024 02:50 PM Reporting Lab: [facility] [id number] Performing Lab: [facility] [phone] CREATININE 0.7 mg/dL 0.7-1.2 UREA NITROGEN 15 mg/dL 8-26 GLUCOSE 106 mg/dL H 70-100 SODIUM 139 mmol/L 136-145 POTASSIUM 3.4 mmol/L L 3.5-5.1 CHLORIDE 105 mmol/L 98-107 CO2 25 mmol/L 22-29 CALCIUM 8.5 mg/dL 8.4-10.2 MAGNESIUM 2.2 mg/dL 1.6-2.6 ANION GAP 9 mmol/L 5-15 .CREAT EGFR(CKD-EPI) >90 >60 Apr 25, 2024 05:10 PM [facility] BASIC METABOLIC PANEL+MG Specimen Type: PLASMA No comment entered. Ordering Provider: GIOVANNI ADLER Report Released Date/Time: Apr 25, 2024 05:04 PM Reporting Lab: [facility] [id number] Performing Lab: [facility] [phone] CREATININE 0.7 mg/dL 0.7-1.2 UREA NITROGEN 15 mg/dL 8-26 GLUCOSE 104 mg/dL H 70-100 SODIUM 139 mmol/L 136-145 POTASSIUM 3.2 mmol/L L 3.5-5.1 CHLORIDE 103 mmol/L 98-107 CO2 28 mmol/L 22-29 CALCIUM 8.5 mg/dL 8.4-10.2 MAGNESIUM 2.2 mg/dL 1.6-2.6 ANION GAP 8 mmol/L 5-15 .CREAT EGFR(CKD-EPI) >90 >60 Apr 25, 2024 07:46 AM [facility] BASIC METABOLIC PANEL+MG Specimen Type: PLASMA No comment entered. Ordering Provider: GIOVANNI ADLER Report Released Date/Time: Apr 24, 2024 12:37 PM Reporting Lab: [facility] [id number] Performing Lab: [facility] [id number] CREATININE 0.7 mg/dL 0.7-1.2 UREA NITROGEN 14 mg/dL 8-26 GLUCOSE 127 mg/dL H 70-100 SODIUM 139 mmol/L 136-145 POTASSIUM 2.9 mmol/L L 3.5-5.1 CHLORIDE 101 mmol/L 98-107 CO2 29 mmol/L 22-29 CALCIUM 8.7 mg/dL 8.4-10.2 MAGNESIUM 2.3 mg/dL 1.6-2.6 ANION GAP 9 mmol/L 5-15 .CREAT EGFR(CKD-EPI) >90 >60 Apr 24, 2024 04:42 PM [facility] BASIC METABOLIC PANEL+MG Specimen Type: PLASMA No comment entered. Ordering Provider: GIOVANNI ADLER Report Released Date/Time: Apr 24, 2024 12:37 PM Reporting Lab: [facility] [phone] Performing Lab: [facility] [address] CREATININE 0.7 mg/dL 0.7-1.2 UREA NITROGEN 16 mg/dL 8-26 GLUCOSE 97 mg/dL 70-100 SODIUM 138 mmol/L 136-145 POTASSIUM 2.7 mmol/L L 3.5-5.1 CHLORIDE 99 mmol/L 98-107 CO2 30 mmol/L H 22-29 CALCIUM 8.4 mg/dL 8.4-10.2 MAGNESIUM 2.1 mg/dL 1.6-2.6 ANION GAP 9 mmol/L 5-15 .CREAT EGFR(CKD-EPI) >90 >60 Apr 24, 2024 07:36 AM [facility] BASIC METABOLIC PANEL+MG Specimen Type: PLASMA Comment: Critical Value Reported To: Cait Zamorano RN 04-24-24@[address] [place] [address]. Critical value report confirmed. Ordering Provider: AARON VICTOR Report Released Date/Time: Apr 23, 2024 05:30 PM Reporting Lab: [facility] [phone] Performing Lab: [facility] [address] CREATININE 0.7 mg/dL 0.7-1.2 UREA NITROGEN 16 mg/dL 8-26 GLUCOSE 105 mg/dL H 70-100 SODIUM 138 mmol/L 136-145 POTASSIUM 2.3 mmol/L LL 3.5-5.1 CHLORIDE 98 mmol/L 98-107 CO2 29 mmol/L 22-29 CALCIUM 8.3 mg/dL L 8.4-10.2 MAGNESIUM 2.2 mg/dL 1.6-2.6 ANION GAP 11 mmol/L 5-15 .CREAT EGFR(CKD-EPI) >90 >60 Apr 24, 2024 07:35 AM [facility] CBC & DIFF Specimen Type: BLOOD Comment: Automated Differential Performed Ordering Provider: AARON VICTOR Report Released Date/Time: Apr 23, 2024 05:30 PM Reporting Lab: [facility] [phone] Performing Lab: [facility] [address] WBC 10.49 10*3/uL 4.0-11.0 RBC 3.83 10*6/uL [...] 10*3/uL 0-0.1 Apr 23, 2024 01:20 PM [facility] LACTIC ACID Specimen Type: PLASMA No comment entered. Ordering Provider: AARON VICTOR Report Released Date/Time: Apr 23, 2024 12:05 PM Reporting Lab: [facility] [address] Performing Lab: [facility] [address] LACTIC ACID 1.5 mmol/L 0.5-2.2 Apr 23, 2024 01:20 PM [facility] PROTHROMBIN TIME/INR Specimen Type: PLASMA No comment entered. Ordering Provider: AARON VICTOR Report Released Date/Time: Apr 23, 2024 12:05 PM Reporting Lab: [facility] [address] Performing Lab: [facility] [address] .INR 1.2 H 0.8-1.1 .PT 14.5 s H 9.4-12.5 Apr 23, 2024 01:20 PM [facility] ACT PART THROMBO TIME Specimen Type: PLASMA No comment entered. Ordering Provider: AARON VICTOR Report Released Date/Time: Apr 23, 2024 12:05 PM Reporting Lab: [facility] [address] Performing Lab: [facility] [address] APTT 29.3 s 25.1-36.5 Apr 23, 2024 01:20 PM [facility] COMPREHENSIVE METABOLIC PANEL+MG Specimen Type: PLASMA No comment entered. Ordering Provider: AARON VICTOR Report Released Date/Time: Apr 23, 2024 12:05 PM Reporting Lab: [facility] [address] Performing Lab: [facility] [address] CREATININE 0.7 mg/dL 0.7-1.2 UREA NITROGEN 19 [...] >90 >60 Apr 23, 2024 01:20 PM [facility] CBC & DIFF Specimen Type: BLOOD Comment: Automated Differential Performed Ordering Provider: AARON VICTOR Report Released Date/Time: Apr 23, 2024 12:05 PM Reporting Lab: [facility] [address] Performing Lab: [facility] [address] WBC 12.50 10*3/uL H 4.0-11.0 RBC 4.07 [...] 10*3/uL 0-0.1 Apr 21, 2024 07:28 AM [facility] URINALYSIS Specimen Type: URINE No comment entered. Ordering Provider: ANANDA HUGGINS Report Released Date/Time: Apr 21, 2024 07:37 AM Reporting Lab: [facility] [address] Performing Lab: [facility] [address] URINE COLOR COLORLESS SPECIFIC GRAVITY 1.009 1.003-1.03 [...] Source Apr 24, 2024 10:48 PM 5 [facility] Apr 24, 2024 06:35 PM 5 [facility] Apr 24, 2024 04:00 PM 59 147/71 14 0 [facility] Apr 24, 2024 12:15 PM 0 [facility] Apr 24, 2024 10:12 AM 4 [facility] Social History: Smoking Status (Most current) and Tobacco Use (All prior to encounter date) This section includes the most current, and the historical, smoking and tobacco- related health factors from the AL facility where the Encounter took place. Current Smoking Status This section includes the most current smoking, or tobacco-related health factor, from the AL facility where the Encounter took place. Date/Time Current Smoking Status Comment Facil ity May 06, 2023 11:30 AM 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 [facility] Tobacco Use History This section includes a history of the smoking, or tobacco-related health factors, that were collected on or before the date of the Encounter. The data comes from the AL facility where the Encounter took place. Date/Time Smoking Status/Tobacco Use Comment F acility May 06, 2023 11:30 AM VA-TOBACCO QUIT 15 YRS OR MORE [facility] Jun 04, 2022 09:00 AM 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 [facility] Jun 04, 2022 09:00 AM VA-TOBACCO QUIT 15 YRS OR MORE [facility] Jul 10, 2021 08:00 AM 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 [facility] Jul 10, 2021 08:00 AM VA-TOBACCO QUIT 5 TO < 15 YRS [facility] May 23, 2020 08:30 AM 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 [facility] May 23, 2020 08:30 AM VA-TOBACCO QUIT 5 TO < 15 YRS [facility] Mar 20, 2019 04:03 PM 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 [facility] Mar 20, 2019 04:03 PM VA-TOBACCO QUIT 5 TO < 15 YRS [facility] Mar 21, 2018 08:13 AM FORMER TOBACCO USER 7Y OR GREATE R [facility] Feb 24, 2017 09:24 AM FORMER TOBACCO USER 7Y OR GREATE R [facility] January 07, 2016 08:01 AM FORMER TOBACCO USE >1Y <7Y [facility] Feb 03, 2015 07:58 AM FORMER TOBACCO USE <1Y [facility] Feb 26, 2014 08:41 AM CURRENT TOBACCO USER [facility] May 13, 2011 01:45 PM CURRENT TOBACCO USER [facility] Advance Directives: All historical and current Section Date Range: From patient's date of to the date document was created. This section includes ALL of a patient's completed or amended [place] Advance and Rescinded Directives. The entries below indicate that a directive exists for the patient, but an actual copy is not included with this document. The data comes from all [place] facilities. Date Advance Directives Provider Source Mar 23, 2016 CLINICAL WARNING [facility] Radiology Reports: +/- 30 days [...] the Encounter. The data comes from all [place] treatment facilities. Date/Time Radiology Report Provider Source Apr 24, 2024 02:13 PM ABSCESS DRAIN PLAC EMENT PERITONEAL (P): FLACA WEAVER [id number] -1950 M Exm Date: APR 24, 2024@14:13 Req Phys: TAURUS WOOD Pat Loc: 3K04-24-2024@16:07 Img Loc: INTERVENTIONAL RADIOLOGY Service: PRIMARY CARE [place] [address] (Case [id number] COMPLETE) IR PERITONEAL/RETROPERITONEAL PER(ANI Detailed) CPT:43164 Reason for Study: diverticular abscess Clinical History: Amidon IS NOT under investigation for COVID-19 or is COVID-19 negative 73yo M with hx of recurrent diverticulitis, transferred from [facility] 04/[address] 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 Palmira Graves MD LAST CREATININE 0.7 (04/23/24) Report Status: Verified Date Reported: APR 24, 2024 Date Verified: APR 24, 2024 Analytics Senior Manager E-Sig:/ES/SADIA DEE MD Report: PROCEDURES: Placement of [...] anesthesia. Using real-time CT fluoroscopy, a 5 [place] Yueh catheter was advanced into the collection in the left lower quadrant. A wire was coiled in the collection. The tract into the collection was dilated to accommodate the 12 [place] locking pigtail drainage catheter. The catheter was secured to the skin with monofilament suture and connected to JUAN bulb suction. Impression: Successful placement of a 12 [place] locking pigtail drainage catheter in the left lower quadrant abscess. This catheter is connected to JUAN bulb suction with flushes, as ordered. I, SADIA DEE, have reviewed the images and report. Primary Interpreting Staff: SADIA DEE MD, RADIOLOGIST (Analytics Senior Manager) Primary Interpreting Resident: JEFFREY FLOWER MD, ASSOCIATE SOFTWARE DEVELOPMENT ENGINEER /SADIA SNYDER [facility] Apr 24, 2024 02:[address] NEEDLE PLACEMEN T (P): FLACA WEAVER [id number] -1950 M Ex Date: APR 24, 2024@14:11 Req Phys: TAURUS WOOD Loc: 3KS/04-24-2024@16:07 Im Loc: CT IMAGING Service: PRIMARY CARE - [place] [address] (Case [id number] COMPLETE) CT SCAN FOR NEEDLE PLACEMENT (CT Detailed) CPT:00035 Reason for Study: diverticular abscess Clinical History: Report Status: Verified Date Reported: APR 24, 2024 Date Verified: APR 24, 2024 Analytics Senior Manager E-Sig:/ES/SADIA DEE MD Report: PROCEDURES: Placement of [...] anesthesia. Using real-time CT fluoroscopy, a 5 [place] Yueh catheter was advanced into the collection in the left lower quadrant. A wire was coiled in the collection. The tract into the collection was dilated to accommodate the 12 [place] locking pigtail drainage catheter. The catheter was secured to the skin with monofilament suture and connected to JUAN bulb suction. Impression: Successful placement of a 12 [place] locking pigtail drainage catheter in the left lower quadrant abscess. This catheter is connected to JUAN bulb suction with flushes, as ordered. I, SADIA DEE, have reviewed the images and report. Primary Interpreting Staff: SADIA DEE MD, RADIOLOGIST (Analytics Senior Manager) Primary Interpreting Resident: JEFFREY FLOWER MD, ASSOCIATE SOFTWARE DEVELOPMENT ENGINEER /SADIA SNYDER [facility] Apr 23, 2024 06:[address] ABDOMEN/ PELVIS: FLACA WEAVER [id number] -1950 M Exm Date: APR 23, 2024@06:36 Req Phys: MCKAY VICTOR Loc: 04-24-2024@10:25 [facility] [place] Loc: OUTSOURCE CT Service: Unknown (Case [id number] COMPLETE) NON AL CT ABDOMEN/PELVIS (CT Detailed) CPT:43528 Reason for Study: OUTSIDE STUDY Clinical History: OUTSIDE STUDY Report Status: Electronically Filed Date Reported: APR 24, 2024 Report: This is an outside Imaging study and/or report imported for continuity of patient care. This Imaging study and/or report was not reviewed or verified by a [place] Radiologist. Impression: This is an outside Imaging study and/or report imported for continuity of patient care. This Imaging study and/or report was not reviewed or verified by a [place] Radiologist. Primary Diagnostic Code: VERIFIED BY: / *ELECTRONICALLY FILED* [facility] Pathology Reports: +/- 30 days [...] the Encounter. The data comes from all [place] treatment facilities. Date/Time Pathology Report Provider Source Apr 21, 2024 07:28 AM LR MICROBIOLOGY RE PORT: Reporting Lab: [facility] [CLIA# [id number]] [place] [address] Accession [UID]: [id number] [[id number]] Received: Apr 21, 2024@08:16 Collection sample: URINE Collection date: Apr 21, 2024 07:28 Provider: ANANDA HUGGINS Comment on specimen: RECEIVED IN STERILE CUP Test(s) ordered: CULTURE & SUSCEPTIBILITY...... completed: Apr 22, 2024 * BACTERIOLOGY FINAL REPORT => Apr 22, 2024 08:38 TECH CODE: [id number] CULTURE RESULTS: NO GROWTH 24 HOURS Bacteriology Remark(s): THIS REPORT IS FINAL =--=--=--=--=--=--=--=--=--=--=--=- -=--=--=--=--=--=--=--=--=--=--=--= --=--=-- Performing Laboratory: Bacteriology Report Performed By: [facility] [CLIA# [id number]] [address] [place] [address] [facility] Encounter Notes: All associated encounter notes This section contains the clinical notes associated to the Encounter. Date/Time Encounter Note(s) Provider Source Apr 24, 2024 08:48 AM NURSING INPATIENT NOTE: LOCAL TITLE: [facility] NURSING PROGRESS NOTE STANDARD TITLE: NURSING INPATIENT NOTE DATE OF NOTE: APR 24, 2024@08:48 ENTRY DATE: APR 24, 2024@08:48:44 AUTHOR: ERVIN RALPH COSIGNER: URGENCY: STATUS: COMPLETED CONTRAINDICATIONS: Does patient have allergy or known hypersensitivity to Perflutren microspheres? No Does Patient have allergy or known hypersensitivity to polyethylene glycol (PEG) or products that contain PEG such as colonoscopy bowel preparations and laxatives? No Patient was given an explanation of the indications and potential side effects, patient indicates readiness to learn, verbalizes understanding and consents to procedure. Yes Comment: BASELINE VITAL SIGNS: BP:128/76 HR: 47 O2 Sats: 98 RR: 16 Pain: Yes 8 Comment: chronic back pain IV ACCESS: Present Comment: patent and intact 1.5ML ACTIVATED PERFLUTREN DILUTED IN 8.5ML OF 0.9 NS SYRINGE: Amount administered IV: 1MLs Time administered: 829 ADVERSE REACTIONS: No Action Taken: Not Applicable POST STUDY VITAL SIGNS: BP:125/71 HR: 48 O2 Sats: 97 RR: 18 Pain: 8 Yes Comment: chronic back pain, no new onset pain IV REMOVED: No Comment: stewart /alexi/ ERVIN RALPH REGISTERED NURSE, CORRECTIONAL PROBATION OFFICER Signed: 04/24/2024 08:51 ERVIN RALPH [facility]
--- OUTSIDE RECORDS SUMMARY | 2024-05-04 01:03 | XMS_ITS | Encounter Summary ---
Author Name [facility] [place] [facility] [place] Address [address] [place] [address] Care Team Providers Care Assurance Services Manager Health Care Name Role Phone JATINDER BENITEZ Primary [...] PART A Sep 29, 2016 PART A [id number] [phone] JUDY WEAVER PATIENT Selected Encounter This section includes the information on record at [place] for the Encounter. Date/Time Encounter Type Encounter Description Reason Pro vider Source Apr 23, 2024 05:08 PM Inpatient Visit CARDIAC ECHO IHE Encounter Template Text not used by [place] Plan of Treatment: Future Appointments (+ 6 months) and Future Tests (+/- 45 days) The Plan of Treatment section includes future care activities for the patient from all [place] treatmentfacilities. This section includes future appointments and future orders which are active, pending or scheduled. Future Appointments This section includes appointments that were scheduled to occur 6 months from the date of the Encounter, up to a maximum of 20 appointments. The data comes from all [place] treatment facilities. Appointment Date/Time Appointment Type Appointme nt Facility Name Apr 27, 2024 02:30 PM AMBULATORY - NONE [facility] May 02, 2024 10:00 AM AMBULATORY - SURGERY [facility] May 04, 2024 09:00 AM AMBULATORY - NONE [facility] May 07, 2024 08:45 AM AMBULATORY - MEDICINE [facility] May 08, 2024 02:00 PM [facility] May 09, 2024 07:30 AM AMBULATORY - SURGERY [facility] May 15, 2024 08:30 AM [...] of theEncounter. The data comes from all [place] treatment facilities. Test Date/Time Test Type Test Details Facility Name Apr 26, 2024 10:10 AM Laboratory - Microbiology Order CULTURE & SUSCEPTIBILITY WOUND OTHER WC ONCE ~For Test: CULTURE & SUSCEPTIBILITY ~Culture sample from JUAN drain output [facility] Apr 26, 2024 10:10 AM Laboratory - Microbiology Order GRAM STAIN WOUND OTHER WC ONCE ~For Test: GRAM STAIN ~JUAN drain culture/gram stain [facility] Apr 27, 2024 02:30 PM Imaging - Ultrasound Order US AORTA (P) [facility] May 04, 2024 12:00 AM Laboratory - Chemistry Order BASIC METABOLIC PANEL+MG PLASMA SP ONCE [facility] May 08, 2024 02:00 PM Imaging - CT Scan Order CT (AP) ABDOMEN/PELVIS (P) LISANDRO [facility] Lab Results: +/- 30 days of the encounter This section includes the Chemistry and Hematology Lab Results on record with [place] for the patient. Radiology Reports and Pathology Reports are provided separately, in subsequent sections. Lab Results This section contains the Chemistry/Hematology Results that were resulted 30 days before or 30 daysafter the date of the Encounter. Date/Time Source Result Type Result - Unit Interpretation Reference Range Comment Apr 26, 2024 07:16 AM [facility] BASIC METABOLIC PANEL+MG Specimen Type: PLASMA No comment entered. Ordering Provider: JONO RANDOLPH Report Released Date/Time: Apr 25, 2024 02:50 PM Reporting Lab: [facility] [address] Performing Lab: [facility] [address] CREATININE 0.7 mg/dL 0.7-1.2 UREA NITROGEN 15 mg/dL 8-26 GLUCOSE 106 mg/dL H 70-100 SODIUM 139 mmol/L 136-145 POTASSIUM 3.4 mmol/L L 3.5-5.1 CHLORIDE 105 mmol/L 98-107 CO2 25 mmol/L 22-29 CALCIUM 8.5 mg/dL 8.4-10.2 MAGNESIUM 2.2 mg/dL 1.6-2.6 ANION GAP 9 mmol/L 5-15 .CREAT EGFR(CKD-EPI) >90 >60 Apr 25, 2024 05:10 PM [facility] BASIC METABOLIC PANEL+MG Specimen Type: PLASMA No comment entered. Ordering Provider: GIOVANNI ADLER Report Released Date/Time: Apr 25, 2024 05:04 PM Reporting Lab: [facility] [address] Performing Lab: [facility] [address] CREATININE 0.7 mg/dL 0.7-1.2 UREA NITROGEN 15 mg/dL 8-26 GLUCOSE 104 mg/dL H 70-100 SODIUM 139 mmol/L 136-145 POTASSIUM 3.2 mmol/L L 3.5-5.1 CHLORIDE 103 mmol/L 98-107 CO2 28 mmol/L 22-29 CALCIUM 8.5 mg/dL 8.4-10.2 MAGNESIUM 2.2 mg/dL 1.6-2.6 ANION GAP 8 mmol/L 5-15 .CREAT EGFR(CKD-EPI) >90 >60 Apr 25, 2024 07:46 AM [facility] BASIC METABOLIC PANEL+MG Specimen Type: PLASMA No comment entered. Ordering Provider: GIOVANNI ADLER Report Released Date/Time: Apr 24, 2024 12:37 PM Reporting Lab: [facility] [address] Performing Lab: [facility] [address] CREATININE 0.7 mg/dL 0.7-1.2 UREA NITROGEN 14 mg/dL 8-26 GLUCOSE 127 mg/dL H 70-100 SODIUM 139 mmol/L 136-145 POTASSIUM 2.9 mmol/L L 3.5-5.1 CHLORIDE 101 mmol/L 98-107 CO2 29 mmol/L 22-29 CALCIUM 8.7 mg/dL 8.4-10.2 MAGNESIUM 2.3 mg/dL 1.6-2.6 ANION GAP 9 mmol/L 5-15 .CREAT EGFR(CKD-EPI) >90 >60 Apr 24, 2024 04:42 PM [facility] BASIC METABOLIC PANEL+MG Specimen Type: PLASMA No comment entered. Ordering Provider: GIOVANNI ADLER Report Released Date/Time: Apr 24, 2024 12:37 PM Reporting Lab: [facility] [address] Performing Lab: [facility] [address] CREATININE 0.7 mg/dL 0.7-1.2 UREA NITROGEN 16 mg/dL 8-26 GLUCOSE 97 mg/dL 70-100 SODIUM 138 mmol/L 136-145 POTASSIUM 2.7 mmol/L L 3.5-5.1 CHLORIDE 99 mmol/L 98-107 CO2 30 mmol/L H 22-29 CALCIUM 8.4 mg/dL 8.4-10.2 MAGNESIUM 2.1 mg/dL 1.6-2.6 ANION GAP 9 mmol/L 5-15 .CREAT EGFR(CKD-EPI) >90 >60 Apr 24, 2024 07:36 AM [facility] BASIC METABOLIC PANEL+MG Specimen Type: PLASMA Comment: Critical Value Reported To: Cait Zamorano RN 04-24-24@[address] [place] [address]. Critical value report confirmed. Ordering Provider: AARON VICTOR Report Released Date/Time: Apr 23, 2024 05:30 PM Reporting Lab: [facility] [address] Performing Lab: [facility] [address] CREATININE 0.7 mg/dL 0.7-1.2 UREA NITROGEN 16 mg/dL 8-26 GLUCOSE 105 mg/dL H 70-100 SODIUM 138 mmol/L 136-145 POTASSIUM 2.3 mmol/L LL 3.5-5.1 CHLORIDE 98 mmol/L 98-107 CO2 29 mmol/L 22-29 CALCIUM 8.3 mg/dL L 8.4-10.2 MAGNESIUM 2.2 mg/dL 1.6-2.6 ANION GAP 11 mmol/L 5-15 .CREAT EGFR(CKD-EPI) >90 >60 Apr 24, 2024 07:35 AM [facility] CBC & DIFF Specimen Type: BLOOD Comment: Automated Differential Performed Ordering Provider: AARON VICTOR Report Released Date/Time: Apr 23, 2024 05:30 PM Reporting Lab: [facility] [address] Performing Lab: [facility] [address] WBC 10.49 10*3/uL 4.0-11.0 RBC 3.83 10*6/uL [...] 10*3/uL 0-0.1 Apr 23, 2024 01:20 PM [facility] LACTIC ACID Specimen Type: PLASMA No comment entered. Ordering Provider: AARON VICTOR Report Released Date/Time: Apr 23, 2024 12:05 PM Reporting Lab: [facility] [address] Performing Lab: [facility] [address] LACTIC ACID 1.5 mmol/L 0.5-2.2 Apr 23, 2024 01:20 PM [facility] PROTHROMBIN TIME/INR Specimen Type: PLASMA No comment entered. Ordering Provider: AARON VICTOR Report Released Date/Time: Apr 23, 2024 12:05 PM Reporting Lab: [facility] [address] Performing Lab: [facility] [address] .INR 1.2 H 0.8-1.1 .PT 14.5 s H 9.4-12.5 Apr 23, 2024 01:20 PM [facility] ACT PART THROMBO TIME Specimen Type: PLASMA No comment entered. Ordering Provider: AARON VICTOR Report Released Date/Time: Apr 23, 2024 12:05 PM Reporting Lab: [facility] [address] Performing Lab: [facility] [address] APTT 29.3 s 25.1-36.5 Apr 23, 2024 01:20 PM [facility] COMPREHENSIVE METABOLIC PANEL+MG Specimen Type: PLASMA No comment entered. Ordering Provider: AARON VICTOR Report Released Date/Time: Apr 23, 2024 12:05 PM Reporting Lab: [facility] [address] Performing Lab: [facility] [address] CREATININE 0.7 mg/dL 0.7-1.2 UREA NITROGEN 19 [...] >90 >60 Apr 23, 2024 01:20 PM [facility] CBC & DIFF Specimen Type: BLOOD Comment: Automated Differential Performed Ordering Provider: [place] LE P Report Released Date/Time: Apr 23, 2024 12:05 PM Reporting Lab: [facility] [address] Performing Lab: [facility] [address] WBC 12.50 10*3/uL H 4.0-11.0 RBC 4.07 [...] 10*3/uL 0-0.1 Apr 21, 2024 07:28 AM [facility] URINALYSIS Specimen Type: URINE No comment entered. Ordering Provider: ANANDA HUGGINS Report Released Date/Time: Apr 21, 2024 07:37 AM Reporting Lab: [facility] [address] Performing Lab: [facility] [address] URINE COLOR COLORLESS SPECIFIC GRAVITY 1.009 1.003-1.03 [...] 2024 01:59 PM 211.1 30 [place] [facility] Social History: Smoking Status (Most current) and Tobacco Use (All prior to encounter date) This section includes the most current, and the historical, smoking and tobacco- related health factors from the [place] facility where the Encounter took place. Current Smoking Status This section includes the most current smoking, or tobacco-related health factor, from the [place] facility where the Encounter took place. Date/Time Current Smoking Status Comment Facil ity May 06, 2023 11:30 AM VA-TOBACCO QUIT 15 YRS OR MORE [facility] Tobacco Use History This section includes a history of the smoking, or tobacco-related health factors, that were collected on or before the date of the Encounter. The data comes from the [place] facility where the Encounter took place. Date/Time Smoking Status/Tobacco Use Comment F acility May 06, 2023 11:30 AM VA-TOBACCO QUIT 15 YRS OR MORE [facility] Jun 04, 2022 09:00 AM 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 [facility] Jun 04, 2022 09:00 AM VA-TOBACCO QUIT 15 YRS OR MORE [facility] Jul 10, 2021 08:00 AM 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 [facility] Jul 10, 2021 08:00 AM VA-TOBACCO QUIT 5 TO < 15 YRS [facility] May 23, 2020 08:30 AM 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 [facility] May 23, 2020 08:30 AM VA-TOBACCO QUIT 5 TO < 15 YRS [facility] Mar 20, 2019 04:03 PM 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 [facility] Mar 20, 2019 04:03 PM VA-TOBACCO QUIT 5 TO < 15 YRS [facility] Mar 21, 2018 08:13 AM FORMER TOBACCO USER 7Y OR GREATE R [facility] Feb 24, 2017 09:24 AM FORMER TOBACCO USER 7Y OR GREATE R [facility] January 07, 2016 08:01 AM FORMER TOBACCO USE >1Y <7Y [facility] Feb 03, 2015 07:58 AM FORMER TOBACCO USE <1Y [facility] Feb 26, 2014 08:41 AM CURRENT TOBACCO USER [facility] May 13, 2011 01:45 PM CURRENT TOBACCO USER [facility] Advance Directives: All historical and current Section Date Range: From patient's date of to the date document was created. This section includes ALL of a patient's completed or amended [place] Advance and Rescinded Directives. The entries below indicate that a directive exists for the patient, but an actual copy is not included with this document. The data comes from all [facility]. Date Advance Directives Provider Source Mar 23, 2016 CLINICAL WARNING [facility] Radiology Reports: +/- 30 [...] the Encounter. The data comes from all [place] treatment facilities. 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 Palmira Graves MD LAST CREATININE 0.7 (04/23/24) Report Status: Verified Date Reported: APR 24, 2024 Date Verified: APR 24, 2024 Animal Physiologist E-Sig:/ES/SADIA DEE MD Report: PROCEDURES: Placement of [...] Primary Interpreting Staff: SADIA DEE MD, RADIOLOGIST (Animal Physiologist) Primary Interpreting Resident: JEFFREY FLOWER MD, MASTER STEAM YACHT /SADIA SNYDER [facility] Apr 24, 2024 02:[address] NEEDLE PLACEMEN T (P): FLACA WEAVER [id number] -1950 M Exm Date: APR 24, 2024@14:11 Req Phys: TAURUS WOOD Loc: 3K04-24-2024@16:07 Img Loc: CT IMAGING Service: PRIMARY [place] [address] (Case [id number] COMPLETE) CT SCAN FOR NEEDLE PLACEMENT (CT Detailed) CPT:59809 Reason for Study: diverticular abscess Clinical History: Report Status: Verified Date Reported: APR 24, 2024 Date Verified: APR 24, 2024 Animal Physiologist E-Sig:/ES/SADIA DEE MD Report: PROCEDURES: Placement of [...] Primary Interpreting Staff: SADIA DEE MD, RADIOLOGIST (Animal Physiologist) Primary Interpreting Resident: JEFFREY FLOWER MD, MASTER STEAM YACHT /SADIA SNYDER [facility] Apr 23, 2024 06:[address] ABDOMEN/ PELVIS: FLACA WEAVER [id number] -1950 M Ex Date: APR 23, 2024@06:36 Req Phys: MCKAY VICTOR Pat Loc: 04-24-2024@10:25 Img Loc: OUTSOURCE CT Service: Unknown (Case [id number] COMPLETE) NON VA CT ABDOMEN/PELVIS (CT Detailed) CPT:70790 Reason for Study: OUTSIDE STUDY Clinical History: OUTSIDE STUDY Report Status: Electronically Filed Date Reported: APR 24, 2024 Report: This is an outside Imaging study and/or report imported for continuity of patient care. This Imaging study and/or report was not reviewed or verified by a [place] Radiologist. Impression: This is an outside Imaging study and/or report imported for continuity of patient care. This Imaging study and/or report was not reviewed or verified by a [place] Radiologist. Primary Diagnostic Code: VERIFIED BY: / *ELECTRONICALLY FILED* [facility] Pathology Reports: +/- 30 days [...] the Encounter. The data comes from all [place] treatment facilities. Date/Time Pathology Report Provider Source Apr 21, 2024 07:28 AM LR MICROBIOLOGY RE PORT: Reporting Lab: [facility] [CLIA# [id number]] [place] [address] Accession [UID]: [id number] [[id number]] Received: Apr 21, 2024@08:16 Collection sample: URINE Collection date: Apr 21, 2024 07:28 Provider: ANANDA HUGGINS Comment on specimen: RECEIVED IN STERILE CUP Test(s) ordered: CULTURE & SUSCEPTIBILITY...... completed: Apr 22, 2024 * BACTERIOLOGY FINAL REPORT => Apr 22, 2024 08:38 TECH CODE: [id number] CULTURE RESULTS: NO GROWTH 24 HOURS Bacteriology Remark(s): THIS REPORT IS FINAL =--=--=--=--=--=--=--=--=--=--=--=- -=--=--=--=--=--=--=--=--=--=--=--= --=--=-- Performing Laboratory: Bacteriology Report Performed By: [facility] [CLIA# [id number]] [place] [address] [facility] Encounter Notes: All associated encounter notes This section contains the clinical notes associated to the Encounter. Date/Time Encounter Note(s) Provider Source Apr 24, 2024 09:45 AM CARDIOLOGY PROCEDU RE NOTE: LOCAL TITLE: ECHOCARDIOGRAM PROCEDURE STANDARD TITLE: CARDIOLOGY PROCEDURE NOTE DATE OF NOTE: APR 24, 2024@09:45:27 ENTRY DATE: APR 24, 2024@09:45:27 AUTHOR: CLINICAL,DEVICE PRO EXP COSIGNER: URGENCY: STATUS: COMPLETED PROCEDURE SUMMARY CODE: Machine Resulted DATE/TIME PERFORMED: APR 24, 2024@07:51:0 DOCUMENT IN [facility] SEE FULL REPORT IN [facility]IST[facility] IM[facility]ING SIGNATURE NOT REQUIRED SEE SIGNATURE IN VISTA IMAGING (SchedulizeELERA ISCV TTE INPT) AUTO-INSTRUMENT DIAGNOSIS Procedure: Adult Adult Release Status: Released Off-Line Verified Date Verified: Apr 24, 2024@09:45:07 CP Order Number: [id number] Study ID: [id number] Micky Sanchez + + [place], [place] + + [facility] [address] [place] Transthoracic Echocardiogram Report + + :Name: FLACA WEAVER Study Date: 04/24/2024 Height: 71 in : : Patient Location: \S\3KS Weight: 211 lb: :: 1950 Gender: Male BSA: 2.2 m2 : :Age: 73 yrs : :CP Order Number: [id number] : :Reason For Study: Wenkeback : + + :Channel Layer: Juliana Morgan RDCS : + + :Referring Physician: MCKAY VICTOR : + + + + Interpretation Summary A complete two-dimensional transthoracic echocardiogram (94172) was performed with contrast (Q9957). 1. The left ventricular systolic function is normal. The visually estimated ejection fraction is 60-65%. 2. No regional left ventricular wall motion abnormality. 3. The right ventricular systolic function is normal. 4. No hemodynamically significant valvular abnormalities. 5. The IVC is mildly dilated with an abnormal respiratory collapse, suggestive of increased right atrial pressure. 6. No prior studies available for direct comparison. Procedure A complete two-dimensional transthoracic echocardiogram (53993) was performed with contrast (Q9957). Left Ventricle The left ventricle is normal in size. There is normal left ventricular wall thickness. The left ventricular systolic function is normal. The visually estimated ejection fraction is 60-65%. No regional wall motion abnormalities were noted. There is normal diastolic function. Right Ventricle The right ventricle is normal size. The right ventricular systolic function is normal. Left Atrium/Right Atrium/Atrial Septum The left atrial size is normal. Right atrial size is normal. Mitral Valve The mitral valve is normal in structure and function. Tricuspid Valve There is mild tricuspid regurgitation. Estimated RVSP is 18+RA pressure mmHg. Aortic Valve The aortic valve is trileaflet. No aortic valvular regurgitation. There is mild aortic sclerosis without stenosis. Pulmonic Valve There is no pulmonic valve regurgitation. Aorta The aortic root is normal in size. Normal ascending aorta. Pericardium/Pleural There is no pericardial effusion. Inferior Vena Cava/Hepatic Veins The IVC is mildly dilated with an abnormal respiratory collapse, suggestive of increased right atrial pressure. + + :Measurements : :LVIDd: 4.1 cm(3.9-5.9 cm) LVIDs: 2.5 cm(2.0-4.0 cm) : : _ : : :IVSd: 1.1 cm(0.6-1.1 cm) LVPWd: 1.3 cm(0.6-1.1 cm) : : _ : : :TAPSE: 1.8 cm(>1.7) EF(Teich): 69.0 %(52-74%) : + + MMode/2D Measurements \T\ Calculations FS: 38.3 % Ao root diam: 3.5 cm EDV(Teich): 74.3 ml ESV(Teich): 23.0 ml Asc Aorta diam: 3.9 cm LVOT diam: 2.0 cm LVLd ap4: 8.4 cm LVLd ap2: 8.5 cm EDV(MOD-sp4): 97.8 ml EDV(MOD-sp2): 108.0 ml LVLs ap4: 6.0 cm LVLs ap2: 6.9 cm ESV(MOD-sp4): 21.1 ml ESV(MOD-sp2): 27.8 ml EF(MOD-sp4): 78.4 % EF (MOD-bp): 75.3 % SV(MOD-sp4): 76.7 ml LAV (MOD-bp): 57.5 ml LAV Index (MOD-bp): 26.7 ml/m2 IVC Diam: 2.6 cm LA Length: 6.3 cm RA A4Cs: 18.2 cm2 Doppler Measurements \T\ Calculations MV E max marlin: 115.0 cm/sec MV dec slope: 480.4 cm/sec2 MV dec time: 0.24 sec Ao V2 max: 154.9 cm/sec LV V1 max P.5 mmHg Ao max P.6 mmHg LV V1 mean P.5 mmHg Ao V2 mean: 104.0 cm/sec LV V1 max: 105.6 cm/sec Ao mean P.8 mmHg LV V1 mean: 75.6 cm/sec Ao V2 VTI: 32.8 cm LV V1 VTI: 23.8 cm FABIAN(I,D): 2.3 cm2 FABIAN(V,D): 2.2 cm2 SV(LVOT): 75.7 ml PA V2 max: 64.1 cm/sec PA max P.6 mmHg TR max marlin: 212.3 cm/sec Dimensionless Index (DI): 0.68 TR max P.0 mmHg FABIAN(VTI)/BSA: 1.1 Reading Physician:09:45 AM [id number] Administrative Closure: 04/24/2024 by: CLINICAL,DEVICE PROXY SERVICE CLINICAL,DEVICE PROXY SERVICE [facility]
--- OUTSIDE RECORDS SUMMARY | 2024-05-04 01:03 | XMS_ITS ---
[place] DAILY HOSPITALIZATION DATA [facility] Encounter Summary Created on: May 03, 2024 FLACA WEAVER : 1950 Sex: Male Author Name [facility] Address [address] [place] [address] Care Team Providers Care Sales Engineer Account Manager Name Role Phone JATINDER BENITEZ Primary Care [...] PART A Sep 29, 2016 PART A [id number] [phone] JUDY WEAVER PATIENT Selected Encounter This section includes the information on record at [place] for the Encounter. Date/Time Encounter Type Encounter Description Reason Pro vider Source Apr 24, 2024 10:40 AM Inpatient Visit DAILY HOSPITALIZATION DATA [facility] Encounter Template Text not used by [place] Plan of Treatment: Future Appointments (+ 6 months) and Future Tests (+/- 45 days) The Plan of Treatment section includes future care activities for the patient from all [place] treatmentfacilities. This section includes future appointments and future orders which are active, pending or scheduled. Future Appointments This section includes appointments that were scheduled to occur 6 months from the date of the Encounter, up to a maximum of 20 appointments. The data comes from all [place] treatment facilities. Appointment Date/Time Appointment Type Appointme nt Facility Name Apr 27, 2024 02:30 PM AMBULATORY - NONE [facility] May 02, 2024 10:00 AM AMBULATORY - SURGERY [facility] May 04, 2024 09:00 AM [facility] May 07, 2024 08:45 AM AMBULATORY - MEDICINE [facility] May 08, 2024 02:00 PM [facility] May 09, 2024 07:30 AM AMBULATORY - SURGERY [facility] May 15, 2024 08:30 AM AMBULATORY [...] of theEncounter. The data comes from all [place] treatment facilities. Test Date/Time Test Type Test Details Facility Name Apr 26, 2024 10:10 AM Laboratory - Microbiology Order CULTURE & SUSCEPTIBILITY WOUND OTHER WC ONCE ~For Test: CULTURE & SUSCEPTIBILITY ~Culture sample from JUAN drain output [facility] Apr 26, 2024 10:10 AM Laboratory - Microbiology Order GRAM STAIN WOUND OTHER WC ONCE ~For Test: GRAM STAIN ~JUAN drain culture/gram stain [facility] Apr 27, 2024 02:30 PM Imaging - Ultrasound Order US AORTA (P) [facility] May 04, 2024 12:00 AM Laboratory - Chemistry Order BASIC METABOLIC PANEL+MG PLASMA SP ONCE [facility] May 08, 2024 02:00 PM Imaging - CT Scan Order CT (AP) ABDOMEN/PELVIS (P) LISANDRO [facility] Lab Results: +/- 30 days [...] Range Comment Apr 26, 2024 07:16 AM [facility] BASIC METABOLIC PANEL+MG Specimen Type: PLASMA No comment entered. Ordering Provider: JONO RANDOLPH Report Released Date/Time: Apr 25, 2024 02:50 PM Reporting Lab: [facility] [phone] Performing Lab: [facility] [address] CREATININE 0.7 mg/dL 0.7-1.2 UREA NITROGEN 15 mg/dL 8-26 GLUCOSE 106 mg/dL H 70-100 SODIUM 139 mmol/L 136-145 POTASSIUM 3.4 mmol/L L 3.5-5.1 CHLORIDE 105 mmol/L 98-107 CO2 25 mmol/L 22-29 CALCIUM 8.5 mg/dL 8.4-10.2 MAGNESIUM 2.2 mg/dL 1.6-2.6 ANION GAP 9 mmol/L 5-15 .CREAT EGFR(CKD-EPI) >90 >60 Apr 25, 2024 05:10 PM [facility] BASIC METABOLIC PANEL+MG Specimen Type: PLASMA No comment entered. Ordering Provider: GIOVANNI ADLER Report Released Date/Time: Apr 25, 2024 05:04 PM Reporting Lab: [facility] [address] Performing Lab: [facility] [address] CREATININE 0.7 mg/dL 0.7-1.2 UREA NITROGEN 15 mg/dL 8-26 GLUCOSE 104 mg/dL H 70-100 SODIUM 139 mmol/L 136-145 POTASSIUM 3.2 mmol/L L 3.5-5.1 CHLORIDE 103 mmol/L 98-107 CO2 28 mmol/L 22-29 CALCIUM 8.5 mg/dL 8.4-10.2 MAGNESIUM 2.2 mg/dL 1.6-2.6 ANION GAP 8 mmol/L 5-15 .CREAT EGFR(CKD-EPI) >90 >60 Apr 25, 2024 07:46 AM [facility] BASIC METABOLIC PANEL+MG Specimen Type: PLASMA No comment entered. Ordering Provider: GIOVANNI ADLER Report Released Date/Time: Apr 24, 2024 12:37 PM Reporting Lab: [facility] [address] Performing Lab: [facility] [address] CREATININE 0.7 mg/dL 0.7-1.2 UREA NITROGEN 14 mg/dL 8-26 GLUCOSE 127 mg/dL H 70-100 SODIUM 139 mmol/L 136-145 POTASSIUM 2.9 mmol/L L 3.5-5.1 CHLORIDE 101 mmol/L 98-107 CO2 29 mmol/L 22-29 CALCIUM 8.7 mg/dL 8.4-10.2 MAGNESIUM 2.3 mg/dL 1.6-2.6 ANION GAP 9 mmol/L 5-15 .CREAT EGFR(CKD-EPI) >90 >60 Apr 24, 2024 04:42 PM [facility] BASIC METABOLIC PANEL+MG Specimen Type: PLASMA No comment entered. Ordering Provider: GIOVANNI ADLER Report Released Date/Time: Apr 24, 2024 12:37 PM Reporting Lab: [facility] [phone] Performing Lab: [facility] [address] CREATININE 0.7 mg/dL 0.7-1.2 UREA NITROGEN 16 mg/dL 8-26 GLUCOSE 97 mg/dL 70-100 SODIUM 138 mmol/L 136-145 POTASSIUM 2.7 mmol/L L 3.5-5.1 CHLORIDE 99 mmol/L 98-107 CO2 30 mmol/L H 22-29 CALCIUM 8.4 mg/dL 8.4-10.2 MAGNESIUM 2.1 mg/dL 1.6-2.6 ANION GAP 9 mmol/L 5-15 .CREAT EGFR(CKD-EPI) >90 >60 Apr 24, 2024 07:36 AM [facility] BASIC METABOLIC PANEL+MG Specimen Type: PLASMA Comment: Critical Value Reported To: Cait Zamoarno RN 04-24-24@08[facility]. Critical value report confirmed. Ordering Provider: AARON VICTOR Report Released Date/Time: Apr 23, 2024 05:30 PM Reporting Lab: [facility] [address] Performing Lab: [facility] [address] CREATININE 0.7 mg/dL 0.7-1.2 UREA NITROGEN 16 mg/dL 8-26 GLUCOSE 105 mg/dL H 70-100 SODIUM 138 mmol/L 136-145 POTASSIUM 2.3 mmol/L LL 3.5-5.1 CHLORIDE 98 mmol/L 98-107 CO2 29 mmol/L 22-29 CALCIUM 8.3 mg/dL L 8.4-10.2 MAGNESIUM 2.2 mg/dL 1.6-2.6 ANION GAP 11 mmol/L 5-15 .CREAT EGFR(CKD-EPI) >90 >60 Apr 24, 2024 07:35 AM [facility] CBC & DIFF Specimen Type: BLOOD Comment: Automated Differential Performed Ordering Provider: AARON VICTOR Report Released Date/Time: Apr 23, 2024 05:30 PM Reporting Lab: [facility] [address] Performing Lab: [facility] [address] WBC 10.49 10*3/uL 4.0-11.0 RBC 3.83 10*6/uL [...] 10*3/uL 0-0.1 Apr 23, 2024 01:20 PM [facility] LACTIC ACID Specimen Type: PLASMA No comment entered. Ordering Provider: AARON VICTOR Report Released Date/Time: Apr 23, 2024 12:05 PM Reporting Lab: [facility] [address] Performing Lab: [facility] [address] LACTIC ACID 1.5 mmol/L 0.5-2.2 Apr 23, 2024 01:20 PM [facility] PROTHROMBIN TIME/INR Specimen Type: PLASMA No comment entered. Ordering Provider: AARON VICTOR Report Released Date/Time: Apr 23, 2024 12:05 PM Reporting Lab: [facility] [address] Performing Lab: [facility] [address] .INR 1.2 H 0.8-1.1 .PT 14.5 s H 9.4-12.5 Apr 23, 2024 01:20 PM [facility] ACT PART THROMBO TIME Specimen Type: PLASMA No comment entered. Ordering Provider: AARON VICTOR Report Released Date/Time: Apr 23, 2024 12:05 PM Reporting Lab: [facility] [address] Performing Lab: [facility] [address] APTT 29.3 s 25.1-36.5 Apr 23, 2024 01:20 PM [facility] COMPREHENSIVE METABOLIC PANEL+MG Specimen Type: PLASMA No comment entered. Ordering Provider: AARON VICTOR Report Released Date/Time: Apr 23, 2024 12:05 PM Reporting Lab: [facility] [address] Performing Lab: [facility] [address] CREATININE 0.7 mg/dL 0.7-1.2 UREA NITROGEN 19 [...] >90 >60 Apr 23, 2024 01:20 PM [facility] CBC & DIFF Specimen Type: BLOOD Comment: Automated Differential Performed Ordering Provider: AARON VICTOR Report Released Date/Time: Apr 23, 2024 12:05 PM Reporting Lab: [facility] [address] Performing Lab: [facility] [address] WBC 12.50 10*3/uL H 4.0-11.0 RBC 4.07 [...] 10*3/uL 0-0.1 Apr 21, 2024 07:28 AM [facility] URINALYSIS Specimen Type: URINE No comment entered. Ordering Provider: ANANDA HUGGINS Report Released Date/Time: Apr 21, 2024 07:37 AM Reporting Lab: [facility] [address] Performing Lab: [facility] [address] URINE COLOR COLORLESS SPECIFIC GRAVITY 1.009 1.003-1.03 [...] Source Apr 24, 2024 10:48 PM 5 [facility] Apr 24, 2024 06:35 PM 5 [facility] Apr 24, 2024 04:00 PM 59 147/71 14 0 [facility] Apr 24, 2024 12:15 PM 0 [facility] Apr 24, 2024 10:12 AM 4 [facility] Social History: Smoking Status [...] this document. The data comes from all [place] facilities. Date Advance Directives Provider Source Mar 23, 2016 CLINICAL WARNING TIM TERAN [facility] Radiology Reports: +/- 30 days [...] DRAIN PLAC EMENT PERITONEAL (P): FLACA WEAVER [id number] -1950 M Exm Date: APR 24, 2024@14:13 Req Phys: TAURUS WOOD Loc: 3K04-24-2024@16:07 Img Loc: INTERVENTIONAL RADIOLOGY Service: PRIMARY CARE [place] [address] (Case [id number] COMPLETE) IR PERITONEAL/RETROPERITONEAL PER(ANI Detailed) CPT:02081 Reason for Study: diverticular abscess Clinical History: [...] any questions or notifications of critical findings: [id number] If ordering provider is a trainee, enter the name and contact information of the responsible staff physician. Palmira Graves MD LAST CREATININE 0.7 (04/23/24) Report Status: Verified Date Reported: APR 24, 2024 Date Verified: APR 24, 2024 Anesthesiology Tech E-Sig:/ES/SADIA DEE MD Report: PROCEDURES: Placement [...] anesthesia. Using real-time CT fluoroscopy, a 5 Jordanian Yueh catheter was advanced into the collection in the left lower quadrant. A wire was coiled in the collection. The tract into the collection was dilated to accommodate the 12 Jordanian locking pigtail drainage catheter. The catheter was secured to the skin with monofilament suture and connected to JUAN bulb suction. Impression: Successful placement of a 12 Jordanian locking pigtail drainage catheter in the left lower quadrant abscess. This catheter is connected to JUAN bulb suction with flushes, as ordered. I, SADIA DEE, have reviewed the images and report. Primary Interpreting Staff: SADIA DEE MD, RADIOLOGIST (Anesthesiology Tech) Primary Interpreting Resident: JEFFREY FLOWER MD, BANK CLERK /SADIA SNYDER [facility] Apr 24, 2024 02:[address] NEEDLE PLACEMEN T (P): FLACA WEAVER [id number] -1950 M Ex Date: APR 24, 2024@14:11 Req Phys: TAURUS WOOD Loc: 3KS/04-24-2024@16:07 Im Loc: CT IMAGING Service: PRIMARY CARE [place] [address] (Case [id number] COMPLETE) CT SCAN FOR NEEDLE PLACEMENT (CT Detailed) CPT:59428 Reason for Study: diverticular abscess Clinical History: Report Status: Verified Date Reported: APR 24, 2024 Date Verified: APR 24, 2024 Anesthesiology Tech E-Sig:/ES/SADIA DEE MD Report: PROCEDURES: Placement [...] anesthesia. Using real-time CT fluoroscopy, a 5 Jordanian Yueh catheter was advanced into the collection in the left lower quadrant. A wire was coiled in the collection. The tract into the collection was dilated to accommodate the 12 Jordanian locking pigtail drainage catheter. The catheter was secured to the skin with monofilament suture and connected to JUAN bulb suction. Impression: Successful placement of a 12 Jordanian locking pigtail drainage catheter in the left lower quadrant abscess. This catheter is connected to JUAN bulb suction with flushes, as ordered. I, SADIA DEE, have reviewed the images and report. Primary Interpreting Staff: SADIA DEE MD, RADIOLOGIST (Anesthesiology Tech) Primary Interpreting Resident: JEFFREY FLOWER MD, BANK CLERK /SADIA SNYDER [facility] Apr 23, 2024 06:[address] ABDOMEN/ PELVIS: MEGFLACA YAMIL [id number] -1950 M Exm Date: APR 23, 2024@06:36 Req Phys: MCKAY VICTOR Pat Loc: 04-24-2024@10:25 [facility] [place] CT Service: Unknown (Case [id number] COMPLETE) NON [place] CT ABDOMEN/PELVIS (CT Detailed) CPT:11443 Reason for Study: OUTSIDE STUDY Clinical History: [...] Diagnostic Code: VERIFIED BY: / *ELECTRONICALLY FILED* [facility] Pathology Reports: +/- 30 days [...] AM LR MICROBIOLOGY RE PORT: Reporting Lab: [facility] [CLIA# [id number]] [place] [address] Accession [UID]: [id number] [[id number]] Received: Apr 21, 2024@08:16 Collection sample: URINE Collection date: Apr 21, 2024 07:28 Provider: ANANDA HUGGINS Comment on specimen: RECEIVED IN STERILE CUP Test(s) ordered: CULTURE & SUSCEPTIBILITY...... completed: Apr 22, 2024 * BACTERIOLOGY FINAL REPORT => Apr 22, 2024 08:38 TECH CODE: [id number] CULTURE RESULTS: NO GROWTH 24 HOURS Bacteriology Remark(s): THIS REPORT IS FINAL =--=--=--=--=--=--=--=--=--=--=--=- -=--=--=--=--=--=--=--=--=--=--=--= --=--=-- Performing Laboratory: Bacteriology Report Performed By: [facility] [CLIA# [id number]] [address] [place] [address] [facility]
--- OUTSIDE RECORDS SUMMARY | 2024-05-04 01:04 | XMS_ITS | Encounter Summary ---
Author Name [facility] [place] [facility] [place] [place] Address [address] [place] [address] Care Team Providers Care Test Desk Operator Name Role Phone JATINDER BENITEZ Primary [...] Member ID Insurance Provider's Telephone Number Policy Aranda's Name Patient's Relationship to Policy Aranda MEDICARE (WNR) MEDICARE (M) PART A Sep 29, 2016 PART A [id number] JUDY WEAVER PATIENT Selected Encounter This section includes the information on record at [place] for the Encounter. Date/Time Encounter Type Encounter Description Reason Provider Source Apr 23, 2024 01:00 AM Outpatient Encounter ADMIN PAT ACTIVTIES (CTIC Dakar[facility]) SYSTEM,CIS-ARK IHE Encounter Template Text not used by [place] Plan of Treatment: Future Appointments (+ 6 months) and Future Tests (+/- 45 days) The Plan of Treatment section includes future care activities for the patient from all [place] treatmentfacilities. This section includes future appointments and [...] 27, 2024 02:30 PM AMBULATORY - NONE [facility] May 02, 2024 10:00 AM AMBULATORY - SURGERY [facility] May 04, 2024 09:00 AM AMBULATORY - NONE [facility] May 07, 2024 08:45 AM AMBULATORY - MEDICINE [facility] May 08, 2024 02:00 PM AMBULATORY - NONE [facility] May 09, 2024 07:30 AM AMBULATORY - SURGERY [facility] May 15, 2024 08:30 AM AMBULATORY - MEDICINE [facility] Active, Pending, and Scheduled Orders This section includes a listing of several types of active, pending, and scheduled orders, including clinic medications orders, diagnostic test orders, procedure orders and consult orders; where the start date of the order is 45 days before the date of the Encounter or 45 days after the date of theEncounter. The data comes from all [facility]. Test Date/Time Test Type Test Details Facility Name Apr 26, 2024 10:10 AM Laboratory - Microbiology Order CULTURE & SUSCEPTIBILITY WOUND OTHER WC ONCE ~For Test: CULTURE & SUSCEPTIBILITY ~Culture sample from JUAN drain output [facility] Apr 26, 2024 10:10 AM Laboratory - Microbiology Order GRAM STAIN WOUND OTHER WC ONCE ~For Test: GRAM STAIN ~JUAN drain culture/gram stain [facility] Apr 27, 2024 02:30 PM Imaging - Ultrasound Order US AORTA (P) [facility] May 04, 2024 12:00 AM Laboratory - Chemistry Order BASIC METABOLIC PANEL+MG PLASMA SP ONCE [facility] May 08, 2024 02:00 PM Imaging - CT Scan Order CT (AP) ABDOMEN/PELVIS (P) LISANDRO [facility] Lab Results: +/- 30 days of the encounter This section includes the Chemistry and Hematology Lab Results on record with [place] for the patient. Radiology Reports and Pathology Reports are provided separately, in subsequent sections. Lab Results This section contains the Chemistry/Hematology Results that were resulted 30 days before or 30 daysafter the date of the Encounter. Date/Time Source Result Type Result - Unit Interpretation Reference Range Comment Apr 26, 2024 07:16 AM [facility] BASIC METABOLIC PANEL+MG Specimen Type: PLASMA No comment entered. Ordering Provider: JONO RANDOLPH Report Released Date/Time: Apr 25, 2024 02:50 PM Reporting Lab: [facility] [id number] Performing Lab: [facility] [address] CREATININE 0.7 mg/dL 0.7-1.2 UREA NITROGEN 15 mg/dL 8-26 GLUCOSE 106 mg/dL H 70-100 SODIUM 139 mmol/L 136-145 POTASSIUM 3.4 mmol/L L 3.5-5.1 CHLORIDE 105 mmol/L 98-107 CO2 25 mmol/L 22-29 CALCIUM 8.5 mg/dL 8.4-10.2 MAGNESIUM 2.2 mg/dL 1.6-2.6 ANION GAP 9 mmol/L 5-15 .CREAT EGFR(CKD-EPI) >90 >60 Apr 25, 2024 05:10 PM [facility] BASIC METABOLIC PANEL+MG Specimen Type: PLASMA No comment entered. Ordering Provider: GIOVANNI ADLER Report Released Date/Time: Apr 25, 2024 05:04 PM Reporting Lab: [facility] [phone] Performing Lab: [facility] [address] CREATININE 0.7 mg/dL 0.7-1.2 UREA NITROGEN 15 mg/dL 8-26 GLUCOSE 104 mg/dL H 70-100 SODIUM 139 mmol/L 136-145 POTASSIUM 3.2 mmol/L L 3.5-5.1 CHLORIDE 103 mmol/L 98-107 CO2 28 mmol/L 22-29 CALCIUM 8.5 mg/dL 8.4-10.2 MAGNESIUM 2.2 mg/dL 1.6-2.6 ANION GAP 8 mmol/L 5-15 .CREAT EGFR(CKD-EPI) >90 >60 Apr 25, 2024 07:46 AM [facility] BASIC METABOLIC PANEL+MG Specimen Type: PLASMA No comment entered. Ordering Provider: GIOVANNI ADLER Report Released Date/Time: Apr 24, 2024 12:37 PM Reporting Lab: [facility] [phone] Performing Lab: [facility] [address] CREATININE 0.7 mg/dL 0.7-1.2 UREA NITROGEN 14 mg/dL 8-26 GLUCOSE 127 mg/dL H 70-100 SODIUM 139 mmol/L 136-145 POTASSIUM 2.9 mmol/L L 3.5-5.1 CHLORIDE 101 mmol/L 98-107 CO2 29 mmol/L 22-29 CALCIUM 8.7 mg/dL 8.4-10.2 MAGNESIUM 2.3 mg/dL 1.6-2.6 ANION GAP 9 mmol/L 5-15 .CREAT EGFR(CKD-EPI) >90 >60 Apr 24, 2024 04:42 PM [facility] BASIC METABOLIC PANEL+MG Specimen Type: PLASMA No comment entered. Ordering Provider: GIOVANNI ADLER Report Released Date/Time: Apr 24, 2024 12:37 PM Reporting Lab: [facility] [address] Performing Lab: [facility] [address] CREATININE 0.7 mg/dL 0.7-1.2 UREA NITROGEN 16 mg/dL 8-26 GLUCOSE 97 mg/dL 70-100 SODIUM 138 mmol/L 136-145 POTASSIUM 2.7 mmol/L L 3.5-5.1 CHLORIDE 99 mmol/L 98-107 CO2 30 mmol/L H 22-29 CALCIUM 8.4 mg/dL 8.4-10.2 MAGNESIUM 2.1 mg/dL 1.6-2.6 ANION GAP 9 mmol/L 5-15 .CREAT EGFR(CKD-EPI) >90 >60 Apr 24, 2024 07:36 AM [facility] BASIC METABOLIC PANEL+MG Specimen Type: PLASMA Comment: Critical Value Reported To: Cait Zamorano, RN 04-24-24@[address] [place] [address]. Critical value report confirmed. Ordering Provider: AARON VICTOR Report Released Date/Time: Apr 23, 2024 05:30 PM Reporting Lab: [facility] [phone] Performing Lab: [facility] [address] CREATININE 0.7 mg/dL 0.7-1.2 UREA NITROGEN 16 mg/dL 8-26 GLUCOSE 105 mg/dL H 70-100 SODIUM 138 mmol/L 136-145 POTASSIUM 2.3 mmol/L LL 3.5-5.1 CHLORIDE 98 mmol/L 98-107 CO2 29 mmol/L 22-29 CALCIUM 8.3 mg/dL L 8.4-10.2 MAGNESIUM 2.2 mg/dL 1.6-2.6 ANION GAP 11 mmol/L 5-15 .CREAT EGFR(CKD-EPI) >90 >60 Apr 24, 2024 07:35 AM [facility] CBC & DIFF Specimen Type: BLOOD Comment: Automated Differential Performed Ordering Provider: AARON VICTOR Report Released Date/Time: Apr 23, 2024 05:30 PM Reporting Lab: [facility] [phone] Performing Lab: [facility] [address] WBC 10.49 10*3/uL 4.0-11.0 RBC 3.83 10*6/uL [...] 10*3/uL 0-0.1 Apr 23, 2024 01:20 PM [facility] LACTIC ACID Specimen Type: PLASMA No comment entered. Ordering Provider: AARON VICTOR Report Released Date/Time: Apr 23, 2024 12:05 PM Reporting Lab: [facility] [phone] Performing Lab: [facility] [address] LACTIC ACID 1.5 mmol/L 0.5-2.2 Apr 23, 2024 01:20 PM [facility] PROTHROMBIN TIME/INR Specimen Type: PLASMA No comment entered. Ordering Provider: AARON VICTOR Report Released Date/Time: Apr 23, 2024 12:05 PM Reporting Lab: [facility] [address] Performing Lab: [facility] [address] .INR 1.2 H 0.8-1.1 .PT 14.5 s H 9.4-12.5 Apr 23, 2024 01:20 PM [facility] ACT PART THROMBO TIME Specimen Type: PLASMA No comment entered. Ordering Provider: AARON VICTOR Report Released Date/Time: Apr 23, 2024 12:05 PM Reporting Lab: [facility] [address] Performing Lab: [facility] [address] APTT 29.3 s 25.1-36.5 Apr 23, 2024 01:20 PM [facility] COMPREHENSIVE METABOLIC PANEL+MG Specimen Type: PLASMA No comment entered. Ordering Provider: AARON VICTOR Report Released Date/Time: Apr 23, 2024 12:05 PM Reporting Lab: [facility] [address] Performing Lab: [facility] [address] CREATININE 0.7 mg/dL 0.7-1.2 UREA NITROGEN 19 [...] >90 >60 Apr 23, 2024 01:20 PM [facility] CBC & DIFF Specimen Type: BLOOD Comment: Automated Differential Performed Ordering Provider: AARON VICTOR Report Released Date/Time: Apr 23, 2024 12:05 PM Reporting Lab: [facility] [address] Performing Lab: [facility] [address] WBC 12.50 10*3/uL H 4.0-11.0 RBC 4.07 [...] 10*3/uL 0-0.1 Apr 21, 2024 07:28 AM [facility] URINALYSIS Specimen Type: URINE No comment entered. Ordering Provider: ANANDA HUGGINS Report Released Date/Time: Apr 21, 2024 07:37 AM Reporting Lab: [facility] [address] Performing Lab: [facility] [address] URINE COLOR COLORLESS SPECIFIC GRAVITY 1.009 1.003-1.03 [...] 23, 2024 01:59 PM 211.1 30 [place] [facility] Social History: Smoking Status (Most current) and Tobacco Use (All prior to encounter date) This section includes the most current, and the historical, smoking and tobacco- related health factors from the [place] facility where the Encounter took place. Current Smoking Status This section includes the most current smoking, or tobacco-related health factor, from the [place] facility where the Encounter took place. Date/Time Current Smoking Status Comment Facil ity May 06, 2023 11:30 AM VA-TOBACCO QUIT 15 YRS OR MORE [facility] Tobacco Use History This section includes a history of the smoking, or tobacco-related health factors, that were collected on or before the date of the Encounter. The data comes from the [place] facility where the Encounter took place. Date/Time Smoking Status/Tobacco Use Comment F acility May 06, 2023 11:30 AM VA-TOBACCO QUIT 15 YRS OR MORE [facility] Jun 04, 2022 09:00 AM 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 [facility] Jun 04, 2022 09:00 AM VA-TOBACCO QUIT 15 YRS OR MORE [facility] Jul 10, 2021 08:00 AM 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 [facility] Jul 10, 2021 08:00 AM VA-TOBACCO QUIT 5 TO < 15 YRS [facility] May 23, 2020 08:30 AM 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 [facility] May 23, 2020 08:30 AM VA-TOBACCO QUIT 5 TO < 15 YRS [facility] Mar 20, 2019 04:03 PM 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 [facility] Mar 20, 2019 04:03 PM VA-TOBACCO QUIT 5 TO < 15 YRS [facility] Mar 21, 2018 08:13 AM FORMER TOBACCO USER 7Y OR GREATE R [facility] Feb 24, 2017 09:24 AM FORMER TOBACCO USER 7Y OR GREATE R [facility] January 07, 2016 08:01 AM FORMER TOBACCO USE >1Y <7Y [facility] Feb 03, 2015 07:58 AM FORMER TOBACCO USE <1Y [facility] Feb 26, 2014 08:41 AM CURRENT TOBACCO USER [facility] May 13, 2011 01:45 PM CURRENT TOBACCO USER [facility] Advance Directives: All historical and current Section Date Range: From patient's date of to the date document was created. This section includes ALL of a patient's completed or amended [place] Advance and Rescinded Directives. The entries below [...] the Encounter. The data comes from all [place] treatment facilities. Date/Time Radiology Report Provider Source Apr 24, 2024 02:13 PM ABSCESS DRAIN PLAC EMENT PERITONEAL (P): FLACA WEAVER YAMIL [id number] -1950 M Exm Date: APR 24, 2024@14:13 Req Phys: TAURUS WOOD Loc: 3K04-24-2024@16:07 Img Loc: INTERVENTIONAL RADIOLOGY Service: PRIMARY CARE [place] [address] (Case [id number] COMPLETE) IR PERITONEAL/RETROPERITONEAL PER(ANI Detailed) CPT:15932 Reason for Study: diverticular abscess Clinical History: [...] any questions or notifications of critical findings: [id number] If ordering provider is a trainee, enter the name and contact information of the responsible staff physician. Palmira Graves MD LAST CREATININE 0.7 (04/23/24) Report Status: Verified Date Reported: APR 24, 2024 Date Verified: APR 24, 2024 Film Sound Engineer E-Sig:/ES/SADIA DEE MD Report: PROCEDURES: Placement of [...] anesthesia. Using real-time CT fluoroscopy, a 5 Kenyan Yueh catheter was advanced into the collection in the left lower quadrant. A wire was coiled in the collection. The tract into the collection was dilated to accommodate the 12 Kenyan locking pigtail drainage catheter. The catheter was secured to the skin with monofilament suture and connected to JUAN bulb suction. Impression: Successful placement of a 12 Kenyan locking pigtail drainage catheter in the left lower quadrant abscess. This catheter is connected to JUAN bulb suction with flushes, as ordered. I, SADIA DEE, have reviewed the images and report. Primary Interpreting Staff: SADIA DEE MD, RADIOLOGIST (Film Sound Engineer) Primary Interpreting Resident: JEFFREY FLOWER MD, SURFACE SUPPLY BREATHING APPARATUS /SADIA SNYDER [facility] Apr 24, 2024 02:[address] NEEDLE PLACEMEN T (P): MEGFLACA YAMIL [id number] -1950 M Exm Date: APR 24, 2024@14:11 Req Phys: TAURUS WOODE Amanda Loc: 3K04-24-2024@16:07 Img Loc: CT IMAGING Service: PRIMARY CARE [place] [address] (Case [id number] COMPLETE) CT SCAN FOR NEEDLE PLACEMENT (CT Detailed) CPT:38677 Reason for Study: diverticular abscess Clinical History: Report Status: Verified Date Reported: APR 24, 2024 Date Verified: APR 24, 2024 Film Sound Engineer E-Sig:/ES/SADIA DEE MD Report: PROCEDURES: Placement of [...] anesthesia. Using real-time CT fluoroscopy, a 5 Kenyan Yueh catheter was advanced into the collection in the left lower quadrant. A wire was coiled in the collection. The tract into the collection was dilated to accommodate the 12 Kenyan locking pigtail drainage catheter. The catheter was secured to the skin with monofilament suture and connected to JUAN bulb suction. Impression: Successful placement of a 12 Kenyan locking pigtail drainage catheter in the left lower quadrant abscess. This catheter is connected to JUAN bulb suction with flushes, as ordered. I, SADIA DEE, have reviewed the images and report. Primary Interpreting Staff: SADIA DEE MD, RADIOLOGIST (Film Sound Engineer) Primary Interpreting Resident: JEFFREY FLOWER MD, SURFACE SUPPLY BREATHING APPARATUS /SADIA SNYDER [facility] Apr 23, 2024 06:[address] ABDOMEN/ PELVIS: FLACA WEAVER [id number] -1950 M Exm Date: APR 23, 2024@06:36 Req Phys: MCKAY VICTOR Pat Loc: 04-24-2024@10:25 Img Loc: OUTSOURCE CT Service: Unknown (Case [id number] COMPLETE) NON VA CT ABDOMEN/PELVIS (CT Detailed) CPT:69514 Reason for Study: OUTSIDE STUDY Clinical History: OUTSIDE STUDY Report Status: Electronically Filed Date Reported: APR 24, 2024 Report: This is an outside Imaging study and/or report imported for continuity of patient care. This Imaging study and/or report was not reviewed or verified by a [place] Radiologist. Impression: This is an outside Imaging study and/or report imported for continuity of patient care. This Imaging study and/or report was not reviewed or verified by a [place] Radiologist. Primary Diagnostic Code: VERIFIED BY: / *ELECTRONICALLY FILED* [facility] Pathology Reports: +/- 30 days of [...] the Encounter. The data comes from all [place] treatment facilities. Date/Time Pathology Report Provider Source Apr 21, 2024 07:28 AM LR MICROBIOLOGY RE PORT: Reporting Lab: [facility] [CLIA# [id number]] [place] [address] Accession [UID]: [id number] [[id number]] Received: Apr 21, 2024@08:16 Collection sample: URINE Collection date: Apr 21, 2024 07:28 Provider: ANANDA HUGGINS Comment on specimen: RECEIVED IN STERILE CUP Test(s) ordered: CULTURE & SUSCEPTIBILITY...... completed: Apr 22, 2024 * BACTERIOLOGY FINAL REPORT => Apr 22, 2024 08:38 TECH CODE: [id number] CULTURE RESULTS: NO GROWTH 24 HOURS Bacteriology Remark(s): THIS REPORT IS FINAL =--=--=--=--=--=--=--=--=--=--=--=- -=--=--=--=--=--=--=--=--=--=--=--= --=--=-- Performing Laboratory: Bacteriology Report Performed By: [facility] [CLIA# [id number]] [address] [place] [address] [facility] Encounter Notes: All associated encounter notes This section contains the clinical notes associated to the Encounter. Date/Time Encounter Note(s) Provider Source Apr 23, 2024 01:00 AM CRITICAL CARE UNIT NOTE: LOCAL TITLE: ICCA INPATIENT FLOWSHEET STANDARD TITLE: CRITICAL CARE UNIT NOTE DATE OF NOTE: APR 23, 2024@01:00 ENTRY DATE: APR 24, 2024@14:34:47 AUTHOR: CAITLIN WINKLERVault DragonMaeve EXP COSIGNER: URGENCY: STATUS: COMPLETED This is a place aranda only. Please see [employer] to view document. /es/ [employer]usix SYSTEM ICU DOCUMENT IMPORT Signed: 04/24/2024 14:34 [employer]ERSONabus[employer] [facility] Apr 23, 2024 01:00 AM CRITICAL CARE UNIT NOTE: LOCAL TITLE: [facility] RESPIRATORY THERAPY FLOWSHEET STANDARD TITLE: CRITICAL CARE UNIT NOTE DATE OF NOTE: APR 23, 2024@01:00 ENTRY DATE: APR 24, 2024@15:05:25 AUTHOR: KELLY WINKLER EXP COSIGNER: URGENCY: STATUS: COMPLETED This is a place aranda only. Please see [employer] to view document. /es/ [employer] SYSTEM ICU DOCUMENT IMPORT Signed: 04/24/2024 15:05 [employer] [facility]
--- OUTSIDE RECORDS SUMMARY | 2024-05-04 01:04 | XMS_ITS ---
NH DAILY HOSPITALIZATION DATA [facility] Encounter Summary Created on: May 03, 2024 FLACA WEAVER : 1950 Sex: Male Author Name [facility] Address [address] [place] [address] Care Team Providers Care Blending Operator Name Role Phone JATINDER BENITEZ Primary [...] PART A Sep 29, 2016 PART A [id number] [phone] JUDY WEAVER PATIENT Selected Encounter This section includes the information on record at NH for the Encounter. Date/Time Encounter Type Encounter Description Reason Pro vider Source Apr 24, 2024 02:37 PM Inpatient Visit DAILY HOSPITALIZATION DATA [facility] Encounter Template Text not used by NH Plan of Treatment: Future Appointments (+ 6 months) and Future Tests (+/- 45 days) The Plan of Treatment section includes future care activities for the patient from all NH treatmentfacilities. This section includes future appointments and future orders which are active, pending or scheduled. Future Appointments This section includes appointments that were scheduled to occur 6 months from the date of the Encounter, up to a maximum of 20 appointments. The data comes from all NH treatment facilities. Appointment Date/Time Appointment Type Appointme nt Facility Name Apr 27, 2024 02:30 PM AMBULATORY - NONE [facility] May 02, 2024 10:00 AM [facility] May 04, 2024 09:00 [facility] May 07, 2024 08:45 AM [facility] May 08, 2024 02:00 PM [facility] May 09, 2024 07:30 AM [facility] May 15, 2024 08:30 AM AMBULATORY - MEDICINE [facility] Active, Pending, and Scheduled Orders This section includes a listing of several types of active, pending, and scheduled orders, including clinic medications orders, diagnostic test orders, procedure orders and consult orders; where the start date of the order is 45 days before the date of the Encounter or 45 days after the date of theEncounter. The data comes from all NH treatment facilities. Test Date/Time Test Type Test Details Facility Name Apr 26, 2024 10:10 AM Laboratory - Microbiology Order CULTURE & SUSCEPTIBILITY WOUND OTHER WC ONCE ~For Test: CULTURE & SUSCEPTIBILITY ~Culture sample from JUAN drain output [facility] Apr 26, 2024 10:10 AM Laboratory - Microbiology Order GRAM STAIN WOUND OTHER WC ONCE ~For Test: GRAM STAIN ~JUAN drain culture/gram stain [facility] Apr 27, 2024 02:30 PM Imaging - Ultrasound Order US AORTA (P) [facility] May 04, 2024 12:00 AM Laboratory - Chemistry Order BASIC METABOLIC PANEL+MG PLASMA SP ONCE [facility] May 08, 2024 02:00 PM Imaging - CT Scan Order CT (AP) ABDOMEN/PELVIS (P) LISANDRO [facility] Lab Results: +/- 30 days of the encounter This section includes the Chemistry and Hematology Lab Results on record with NH for the patient. Radiology Reports and Pathology Reports are provided separately, in subsequent sections. Lab Results This section contains the Chemistry/Hematology Results that were resulted 30 days before or 30 daysafter the date of the Encounter. Date/Time Source Result Type Result - Unit Interpretation Reference Range Comment Apr 26, 2024 07:16 AM [facility] BASIC METABOLIC PANEL+MG Specimen Type: PLASMA No comment entered. Ordering Provider: JONO RANDOLPH Report Released Date/Time: Apr 25, 2024 02:50 PM Reporting Lab: [facility] [address] Performing Lab: [facility] [address] CREATININE 0.7 mg/dL 0.7-1.2 UREA NITROGEN 15 mg/dL 8-26 GLUCOSE 106 mg/dL H 70-100 SODIUM 139 mmol/L 136-145 POTASSIUM 3.4 mmol/L L 3.5-5.1 CHLORIDE 105 mmol/L 98-107 CO2 25 mmol/L 22-29 CALCIUM 8.5 mg/dL 8.4-10.2 MAGNESIUM 2.2 mg/dL 1.6-2.6 ANION GAP 9 mmol/L 5-15 .CREAT EGFR(CKD-EPI) >90 >60 Apr 25, 2024 05:10 PM [facility] BASIC METABOLIC PANEL+MG Specimen Type: PLASMA No comment entered. Ordering Provider: GIOVANNI ADLER Report Released Date/Time: Apr 25, 2024 05:04 PM Reporting Lab: [facility] [phone] Performing Lab: [facility] [address] CREATININE 0.7 mg/dL 0.7-1.2 UREA NITROGEN 15 mg/dL 8-26 GLUCOSE 104 mg/dL H 70-100 SODIUM 139 mmol/L 136-145 POTASSIUM 3.2 mmol/L L 3.5-5.1 CHLORIDE 103 mmol/L 98-107 CO2 28 mmol/L 22-29 CALCIUM 8.5 mg/dL 8.4-10.2 MAGNESIUM 2.2 mg/dL 1.6-2.6 ANION GAP 8 mmol/L 5-15 .CREAT EGFR(CKD-EPI) >90 >60 Apr 25, 2024 07:46 AM [facility] BASIC METABOLIC PANEL+MG Specimen Type: PLASMA No comment entered. Ordering Provider: GIOVANNI ADLER Report Released Date/Time: Apr 24, 2024 12:37 PM Reporting Lab: [facility] [address] Performing Lab: [facility] [address] CREATININE 0.7 mg/dL 0.7-1.2 UREA NITROGEN 14 mg/dL 8-26 GLUCOSE 127 mg/dL H 70-100 SODIUM 139 mmol/L 136-145 POTASSIUM 2.9 mmol/L L 3.5-5.1 CHLORIDE 101 mmol/L 98-107 CO2 29 mmol/L 22-29 CALCIUM 8.7 mg/dL 8.4-10.2 MAGNESIUM 2.3 mg/dL 1.6-2.6 ANION GAP 9 mmol/L 5-15 .CREAT EGFR(CKD-EPI) >90 >60 Apr 24, 2024 04:42 PM [facility] BASIC METABOLIC PANEL+MG Specimen Type: PLASMA No comment entered. Ordering Provider: GIOVANNI ADLER Report Released Date/Time: Apr 24, 2024 12:37 PM Reporting Lab: [facility] [address] Performing Lab: [facility] [address] CREATININE 0.7 mg/dL 0.7-1.2 UREA NITROGEN 16 mg/dL 8-26 GLUCOSE 97 mg/dL 70-100 SODIUM 138 mmol/L 136-145 POTASSIUM 2.7 mmol/L L 3.5-5.1 CHLORIDE 99 mmol/L 98-107 CO2 30 mmol/L H 22-29 CALCIUM 8.4 mg/dL 8.4-10.2 MAGNESIUM 2.1 mg/dL 1.6-2.6 ANION GAP 9 mmol/L 5-15 .CREAT EGFR(CKD-EPI) >90 >60 Apr 24, 2024 07:36 AM [facility] BASIC METABOLIC PANEL+MG Specimen Type: PLASMA Comment: Critical Value Reported To: Cait Zamorano RN 04-24-24@08[facility]. Critical value report confirmed. Ordering Provider: AARON VICTOR Report Released Date/Time: Apr 23, 2024 05:30 PM Reporting Lab: [facility] [address] Performing Lab: [facility] [address] CREATININE 0.7 mg/dL 0.7-1.2 UREA NITROGEN 16 mg/dL 8-26 GLUCOSE 105 mg/dL H 70-100 SODIUM 138 mmol/L 136-145 POTASSIUM 2.3 mmol/L LL 3.5-5.1 CHLORIDE 98 mmol/L 98-107 CO2 29 mmol/L 22-29 CALCIUM 8.3 mg/dL L 8.4-10.2 MAGNESIUM 2.2 mg/dL 1.6-2.6 ANION GAP 11 mmol/L 5-15 .CREAT EGFR(CKD-EPI) >90 >60 Apr 24, 2024 07:35 AM [facility] CBC & DIFF Specimen Type: BLOOD Comment: Automated Differential Performed Ordering Provider: AARON VICTOR Report Released Date/Time: Apr 23, 2024 05:30 PM Reporting Lab: [facility] [address] Performing Lab: [facility] [address] WBC 10.49 10*3/uL 4.0-11.0 RBC 3.83 10*6/uL [...] 10*3/uL 0-0.1 Apr 23, 2024 01:20 PM [facility] LACTIC ACID Specimen Type: PLASMA No comment entered. Ordering Provider: AARON VICTOR Report Released Date/Time: Apr 23, 2024 12:05 PM Reporting Lab: [facility] [address] Performing Lab: [facility] [address] LACTIC ACID 1.5 mmol/L 0.5-2.2 Apr 23, 2024 01:20 PM [facility] ACT PART THROMBO TIME Specimen Type: PLASMA No comment entered. Ordering Provider: AARON VICTOR Report Released Date/Time: Apr 23, 2024 12:05 PM Reporting Lab: [facility] [address] Performing Lab: [facility] [address] APTT 29.3 s 25.1-36.5 Apr 23, 2024 01:20 PM [facility] PROTHROMBIN TIME/INR Specimen Type: PLASMA No comment entered. Ordering Provider: AARON VICTOR Report Released Date/Time: Apr 23, 2024 12:05 PM Reporting Lab: [facility] [address] Performing Lab: [facility] [address] .INR 1.2 H 0.8-1.1 .PT 14.5 s H 9.4-12.5 Apr 23, 2024 01:20 PM [facility] COMPREHENSIVE METABOLIC PANEL+MG Specimen Type: PLASMA No comment entered. Ordering Provider: AARON VICTOR Report Released Date/Time: Apr 23, 2024 12:05 PM Reporting Lab: [facility] [address] Performing Lab: [facility] [address] CREATININE 0.7 mg/dL 0.7-1.2 UREA NITROGEN 19 [...] >90 >60 Apr 23, 2024 01:20 PM [facility] CBC & DIFF Specimen Type: BLOOD Comment: Automated Differential Performed Ordering Provider: AARON VICTOR Report Released Date/Time: Apr 23, 2024 12:05 PM Reporting Lab: [facility] [address] Performing Lab: [facility] [address] WBC 12.50 10*3/uL H 4.0-11.0 RBC 4.07 [...] 10*3/uL 0-0.1 Apr 21, 2024 07:28 AM [facility] URINALYSIS Specimen Type: URINE No comment entered. Ordering Provider: ANANDA HUGGINS Report Released Date/Time: Apr 21, 2024 07:37 AM Reporting Lab: [facility] [address] Performing Lab: [facility] [address] URINE COLOR COLORLESS SPECIFIC GRAVITY 1.009 1.003-1.03 [...] Source Apr 24, 2024 10:48 PM 5 [facility] Apr 24, 2024 06:35 PM 5 [facility] Apr 24, 2024 04:00 PM 59 147/71 14 0 [facility] Apr 24, 2024 12:15 PM 0 [facility] Apr 24, 2024 10:12 AM 4 [facility] Social History: Smoking Status [...] 06, 2023 11:30 AM 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 [facility] Tobacco Use History This section includes a history of the smoking, or tobacco-related health factors, that were collected on or before the date of the Encounter. The data comes from the NH facility where the Encounter took place. Date/Time Smoking Status/Tobacco Use Comment F acility May 06, 2023 11:30 AM VA-TOBACCO QUIT 15 YRS OR MORE [facility] Jun 04, 2022 09:00 AM 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 [facility] Jun 04, 2022 09:00 AM VA-TOBACCO QUIT 15 YRS OR MORE [facility] Jul 10, 2021 08:00 AM 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 [facility] Jul 10, 2021 08:00 AM VA-TOBACCO QUIT 5 TO < 15 YRS [facility] May 23, 2020 08:30 AM 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 [facility] May 23, 2020 08:30 AM VA-TOBACCO QUIT 5 TO < 15 YRS [facility] Mar 20, 2019 04:03 PM 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 [facility] Mar 20, 2019 04:03 PM VA-TOBACCO QUIT 5 TO < 15 YRS [facility] Mar 21, 2018 08:13 AM FORMER TOBACCO USER 7Y OR GREATE R [facility] Feb 24, 2017 09:24 AM FORMER TOBACCO USER 7Y OR GREATE R [facility] January 07, 2016 08:01 AM FORMER TOBACCO USE >1Y <7Y [facility] Feb 03, 2015 07:58 AM FORMER TOBACCO USE <1Y [facility] Feb 26, 2014 08:41 AM CURRENT TOBACCO USER [facility] May 13, 2011 01:45 PM CURRENT TOBACCO USER [facility] Advance Directives: All historical and current Section Date Range: From patient's date of to the date document was created. This section includes ALL of a patient's completed or amended NH Advance and Rescinded Directives. The entries below indicate that a directive exists for the patient, but an actual copy is not included with this document. The data comes from all NH facilities. Date Advance Directives Provider Source Mar 23, 2016 CLINICAL WARNING [facility] Radiology Reports: +/- 30 days of [...] DRAIN PLAC EMENT PERITONEAL (P): FLACA WEAVER [id number] -1950 M Exm Date: APR 24, 2024@14:13 Req Phys: TAURUS WOOD Loc: 3K04-24-2024@16:07 Img Loc: INTERVENTIONAL RADIOLOGY Service: PRIMARY CARE [place] [address] (Case [id number] COMPLETE) IR PERITONEAL/RETROPERITONEAL PER(ANI Detailed) CPT:57974 Reason for Study: diverticular abscess Clinical History: [...] any questions or notifications of critical findings: [id number] If ordering provider is a trainee, enter the name and contact information of the responsible staff physician. Palmira Graves MD LAST CREATININE 0.7 (04/23/24) Report Status: Verified Date Reported: APR 24, 2024 Date Verified: APR 24, 2024 Math Instructor E-Sig:/ES/SADIA DEE MD Report: PROCEDURES: Placement of [...] anesthesia. Using real-time CT fluoroscopy, a 5 English Yueh catheter was advanced into the collection in the left lower quadrant. A wire was coiled in the collection. The tract into the collection was dilated to accommodate the 12 English locking pigtail drainage catheter. The catheter was secured to the skin with monofilament suture and connected to JUAN bulb suction. Impression: Successful placement of a 12 English locking pigtail drainage catheter in the left lower quadrant abscess. This catheter is connected to JUAN bulb suction with flushes, as ordered. I, SADIA DEE, have reviewed the images and report. Primary Interpreting Staff: SADIA DEE MD, RADIOLOGIST (Math Instructor) Primary Interpreting Resident: JEFFREY FLOWER MD, HAND COOPER HELPER /SADIA SNYDER [facility] Apr 24, 2024 02:[address] NEEDLE PLACEMEN T (P): FLACA WEAVER [id number] -1950 M Ex Date: APR 24, 2024@14:11 Req Phys: TAURUS WOOD Loc: 3KS/04-24-2024@16:07 Im Loc: CT IMAGING Service: PRIMARY CARE [place] [address] (Case [id number] COMPLETE) CT SCAN FOR NEEDLE PLACEMENT (CT Detailed) CPT:07948 Reason for Study: diverticular abscess Clinical History: Report Status: Verified Date Reported: APR 24, 2024 Date Verified: APR 24, 2024 Math Instructor E-Sig:/ES/SADIA DEE MD Report: PROCEDURES: Placement of [...] anesthesia. Using real-time CT fluoroscopy, a 5 English Yueh catheter was advanced into the collection in the left lower quadrant. A wire was coiled in the collection. The tract into the collection was dilated to accommodate the 12 English locking pigtail drainage catheter. The catheter was secured to the skin with monofilament suture and connected to JUAN bulb suction. Impression: Successful placement of a 12 English locking pigtail drainage catheter in the left lower quadrant abscess. This catheter is connected to JUAN bulb suction with flushes, as ordered. I, SADIA DEE, have reviewed the images and report. Primary Interpreting Staff: SADIA DEE MD, RADIOLOGIST (Math Instructor) Primary Interpreting Resident: JEFFREY FLOWER MD, HAND COOPER HELPER /SADIA SNYDER [facility] Apr 23, 2024 06:[address] ABDOMEN/ PELVIS: MEGFLACA YAMIL [id number] -1950 M Exm Date: APR 23, 2024@06:36 Req Phys: MCKAY VICTOR Pat Loc: 04-24-2024@10:25 [facility] [place] CT Service: Unknown (Case [id number] COMPLETE) NON NH CT ABDOMEN/PELVIS (CT Detailed) CPT:37412 Reason for Study: OUTSIDE STUDY Clinical History: OUTSIDE STUDY Report Status: Electronically Filed Date Reported: APR 24, 2024 Report: This is an outside Imaging study and/or report imported for continuity of patient care. This Imaging study and/or report was not reviewed or verified by a NH Radiologist. Impression: This is an outside Imaging study and/or report imported for continuity of patient care. This Imaging study and/or report was not reviewed or verified by a NH Radiologist. Primary Diagnostic Code: VERIFIED BY: / *ELECTRONICALLY FILED* [facility] Pathology Reports: +/- 30 days of [...] comes from all NH treatment facilities. Date/Time Pathology Report Provider Source Apr 21, 2024 07:28 AM LR MICROBIOLOGY RE PORT: Reporting Lab: [facility] [CLIA# [id number]] [place] [address] Accession [UID]: [id number] [[id number]] Received: Apr 21, 2024@08:16 Collection sample: URINE Collection date: Apr 21, 2024 07:28 Provider: ANANDA HUGGINS Comment on specimen: RECEIVED IN STERILE CUP Test(s) ordered: CULTURE & SUSCEPTIBILITY...... completed: Apr 22, 2024 * BACTERIOLOGY FINAL REPORT => Apr 22, 2024 08:38 TECH CODE: [id number] CULTURE RESULTS: NO GROWTH 24 HOURS Bacteriology Remark(s): THIS REPORT IS FINAL =--=--=--=--=--=--=--=--=--=--=--=- -=--=--=--=--=--=--=--=--=--=--=--= --=--=-- Performing Laboratory: Bacteriology Report Performed By: [facility] [CLIA# [id number]] [address] [address] [facility]
--- OUTSIDE RECORDS SUMMARY | 2024-05-04 01:05 | XMS_ITS ---
CT DAILY HOSPITALIZATION DATA [facility] Encounter Summary Created on: May 03, 2024 FLACA WEAVER : 1950 Sex: Male Author Name [facility] [place] [place] [facility] [place] Address [address] [place] [address] Care Team Providers Care Tinsmith Apprentice Name Role Phone JATINDER BENITEZ Primary Care [...] PART A Sep 29, 2016 PART A [id number] [phone] JUDY WEAVER PATIENT Selected Encounter This section includes the information on record at CT for the Encounter. Date/Time Encounter Type Encounter Description Reason Pro vider Source Apr 24, 2024 03:59 PM Inpatient Visit DAILY HOSPITALIZATION DATA [facility] Encounter Template Text not used by CT Plan of Treatment: Future Appointments (+ 6 months) and Future Tests (+/- 45 days) The Plan of Treatment section includes future care activities for the patient from all CT treatmentfacilities. This section includes future appointments and [...] 2024 02:30 PM AMBULATORY - NONE [facility] May 02, 2024 10:00 AM AMBULATORY - SURGERY [facility] May 04, 2024 09:00 AM [facility] May 07, 2024 08:45 AM AMBULATORY - [facility]ICINE [facility] May 08, 2024 02:00 PM [facility] May 09, 2024 07:30 AM AMBULATORY - SURGERY [facility] May 15, 2024 08:30 AM AMBULATORY - MEDICINE [facility] Active, Pending, and Scheduled Orders This section includes a listing of several types of active, pending, and scheduled orders, including clinic medications orders, diagnostic test orders, procedure orders and consult orders; where the start date of the order is 45 days before the date of the Encounter or 45 days after the date of theEncounter. The data comes from all CT treatment facilities. Test Date/Time Test Type Test Details Facility Name Apr 26, 2024 10:10 AM Laboratory - Microbiology Order CULTURE & SUSCEPTIBILITY WOUND OTHER WC ONCE ~For Test: CULTURE & SUSCEPTIBILITY ~Culture sample from JUAN drain output [facility] Apr 26, 2024 10:10 AM Laboratory - Microbiology Order GRAM STAIN WOUND OTHER WC ONCE ~For Test: GRAM STAIN ~JUAN drain culture/gram stain [facility] Apr 27, 2024 02:30 PM Imaging - Ultrasound Order US AORTA (P) [facility] May 04, 2024 12:00 AM Laboratory - Chemistry Order BASIC METABOLIC PANEL+MG PLASMA SP ONCE [facility] May 08, 2024 02:00 PM Imaging - CT Scan Order CT (AP) ABDOMEN/PELVIS (P) LISANDRO [facility] Lab Results: +/- 30 days of the encounter This section includes the Chemistry and Hematology Lab Results on record with CT for the patient. Radiology Reports and Pathology Reports are provided separately, in subsequent sections. Lab Results This section contains the Chemistry/Hematology Results that were resulted 30 days before or 30 daysafter the date of the Encounter. Date/Time Source Result Type Result - Unit Interpretation Reference Range Comment Apr 26, 2024 07:16 AM [facility] BASIC METABOLIC PANEL+MG Specimen Type: PLASMA No comment entered. Ordering Provider: JONO RANDOLPH Report Released Date/Time: Apr 25, 2024 02:50 PM Reporting Lab: [facility] [phone] Performing Lab: [facility] [phone] CREATININE 0.7 mg/dL 0.7-1.2 UREA NITROGEN 15 mg/dL 8-26 GLUCOSE 106 mg/dL H 70-100 SODIUM 139 mmol/L 136-145 POTASSIUM 3.4 mmol/L L 3.5-5.1 CHLORIDE 105 mmol/L 98-107 CO2 25 mmol/L 22-29 CALCIUM 8.5 mg/dL 8.4-10.2 MAGNESIUM 2.2 mg/dL 1.6-2.6 ANION GAP 9 mmol/L 5-15 .CREAT EGFR(CKD-EPI) >90 >60 Apr 25, 2024 05:10 PM [facility] BASIC METABOLIC PANEL+MG Specimen Type: PLASMA No comment entered. Ordering Provider: GIOVANNI ADLER Report Released Date/Time: Apr 25, 2024 05:04 PM Reporting Lab: [facility] [phone] Performing Lab: [facility] [address] CREATININE 0.7 mg/dL 0.7-1.2 UREA NITROGEN 15 mg/dL 8-26 GLUCOSE 104 mg/dL H 70-100 SODIUM 139 mmol/L 136-145 POTASSIUM 3.2 mmol/L L 3.5-5.1 CHLORIDE 103 mmol/L 98-107 CO2 28 mmol/L 22-29 CALCIUM 8.5 mg/dL 8.4-10.2 MAGNESIUM 2.2 mg/dL 1.6-2.6 ANION GAP 8 mmol/L 5-15 .CREAT EGFR(CKD-EPI) >90 >60 Apr 25, 2024 07:46 AM [facility] BASIC METABOLIC PANEL+MG Specimen Type: PLASMA No comment entered. Ordering Provider: GIOVANNI ADLER Report Released Date/Time: Apr 24, 2024 12:37 PM Reporting Lab: [facility] [phone] Performing Lab: [facility] [address] CREATININE 0.7 mg/dL 0.7-1.2 UREA NITROGEN 14 mg/dL 8-26 GLUCOSE 127 mg/dL H 70-100 SODIUM 139 mmol/L 136-145 POTASSIUM 2.9 mmol/L L 3.5-5.1 CHLORIDE 101 mmol/L 98-107 CO2 29 mmol/L 22-29 CALCIUM 8.7 mg/dL 8.4-10.2 MAGNESIUM 2.3 mg/dL 1.6-2.6 ANION GAP 9 mmol/L 5-15 .CREAT EGFR(CKD-EPI) >90 >60 Apr 24, 2024 04:42 PM [facility] BASIC METABOLIC PANEL+MG Specimen Type: PLASMA No comment entered. Ordering Provider: GIOVANNI ADLER Report Released Date/Time: Apr 24, 2024 12:37 PM Reporting Lab: [facility] [address] Performing Lab: [facility] [address] CREATININE 0.7 mg/dL 0.7-1.2 UREA NITROGEN 16 mg/dL 8-26 GLUCOSE 97 mg/dL 70-100 SODIUM 138 mmol/L 136-145 POTASSIUM 2.7 mmol/L L 3.5-5.1 CHLORIDE 99 mmol/L 98-107 CO2 30 mmol/L H 22-29 CALCIUM 8.4 mg/dL 8.4-10.2 MAGNESIUM 2.1 mg/dL 1.6-2.6 ANION GAP 9 mmol/L 5-15 .CREAT EGFR(CKD-EPI) >90 >60 Apr 24, 2024 07:36 AM [facility] BASIC METABOLIC PANEL+MG Specimen Type: PLASMA Comment: Critical Value Reported To: Cait Zamorano RN 04-24-24@08[facility]. Critical value report confirmed. Ordering Provider: AARON VICTOR Report Released Date/Time: Apr 23, 2024 05:30 PM Reporting Lab: [facility] [phone] Performing Lab: [facility] [phone] CREATININE 0.7 mg/dL 0.7-1.2 UREA NITROGEN 16 mg/dL 8-26 GLUCOSE 105 mg/dL H 70-100 SODIUM 138 mmol/L 136-145 POTASSIUM 2.3 mmol/L LL 3.5-5.1 CHLORIDE 98 mmol/L 98-107 CO2 29 mmol/L 22-29 CALCIUM 8.3 mg/dL L 8.4-10.2 MAGNESIUM 2.2 mg/dL 1.6-2.6 ANION GAP 11 mmol/L 5-15 .CREAT EGFR(CKD-EPI) >90 >60 Apr 24, 2024 07:35 AM [facility] CBC & DIFF Specimen Type: BLOOD Comment: Automated Differential Performed Ordering Provider: AARON VICTOR Report Released Date/Time: Apr 23, 2024 05:30 PM Reporting Lab: [facility] [phone] Performing Lab: [facility] [address] WBC 10.49 10*3/uL 4.0-11.0 RBC 3.83 10*6/uL [...] 10*3/uL 0-0.1 Apr 23, 2024 01:20 PM [facility] LACTIC ACID Specimen Type: PLASMA No comment entered. Ordering Provider: AARON VICTOR Report Released Date/Time: Apr 23, 2024 12:05 PM Reporting Lab: [facility] [phone] Performing Lab: [facility] [address] LACTIC ACID 1.5 mmol/L 0.5-2.2 Apr 23, 2024 01:20 PM [facility] PROTHROMBIN TIME/INR Specimen Type: PLASMA No comment entered. Ordering Provider: AARON VICTOR Report Released Date/Time: Apr 23, 2024 12:05 PM Reporting Lab: [facility] [phone] Performing Lab: [facility] [address] .INR 1.2 H 0.8-1.1 .PT 14.5 s H 9.4-12.5 Apr 23, 2024 01:20 PM [facility] ACT PART THROMBO TIME Specimen Type: PLASMA No comment entered. Ordering Provider: AARON VICTOR Report Released Date/Time: Apr 23, 2024 12:05 PM Reporting Lab: [facility] [address] Performing Lab: [facility] [address] APTT 29.3 s 25.1-36.5 Apr 23, 2024 01:20 PM [facility] COMPREHENSIVE METABOLIC PANEL+MG Specimen Type: PLASMA No comment entered. Ordering Provider: AARON VICTOR Report Released Date/Time: Apr 23, 2024 12:05 PM Reporting Lab: [facility] [address] Performing Lab: [facility] [address] CREATININE 0.7 mg/dL 0.7-1.2 UREA NITROGEN 19 [...] >90 >60 Apr 23, 2024 01:20 PM [facility] CBC & DIFF Specimen Type: BLOOD Comment: Automated Differential Performed Ordering Provider: AARON VICTOR Report Released Date/Time: Apr 23, 2024 12:05 PM Reporting Lab: [facility] [address] Performing Lab: [facility] [address] WBC 12.50 10*3/uL H 4.0-11.0 RBC 4.07 [...] 10*3/uL 0-0.1 Apr 21, 2024 07:28 AM [facility] URINALYSIS Specimen Type: URINE No comment entered. Ordering Provider: ANANDA HUGGINS Report Released Date/Time: Apr 21, 2024 07:37 AM Reporting Lab: [facility] [phone] Performing Lab: [facility] [address] URINE COLOR COLORLESS SPECIFIC GRAVITY 1.009 1.003-1.03 [...] AM VA-TOBACCO QUIT 15 YRS OR MORE [facility] Tobacco Use History This section includes a history of the smoking, or tobacco-related health factors, that were collected on or before the date of the Encounter. The data comes from the CT facility where the Encounter took place. Date/Time Smoking Status/Tobacco Use Comment F acility May 06, 2023 11:30 AM VA-TOBACCO QUIT 15 YRS OR MORE [facility] Jun 04, 2022 09:00 AM 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 [facility] Jun 04, 2022 09:00 AM VA-TOBACCO QUIT 15 YRS OR MORE [facility] Jul 10, 2021 08:00 AM 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 [facility] Jul 10, 2021 08:00 AM VA-TOBACCO QUIT 5 TO < 15 YRS [facility] May 23, 2020 08:30 AM 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 [facility] May 23, 2020 08:30 AM VA-TOBACCO QUIT 5 TO < 15 YRS [facility] Mar 20, 2019 04:03 PM 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 [facility] Mar 20, 2019 04:03 PM VA-TOBACCO QUIT 5 TO < 15 YRS [facility] Mar 21, 2018 08:13 AM FORMER TOBACCO USER 7Y OR GREATE R [facility] Feb 24, 2017 09:24 AM FORMER TOBACCO USER 7Y OR LISETH Hammond [facility] January 07, 2016 08:01 AM FORMER TOBACCO USE >1Y <7Y [facility] Feb 03, 2015 07:58 AM FORMER TOBACCO USE <1Y [facility] Feb 26, 2014 08:41 AM CURRENT TOBACCO USER [facility] May 13, 2011 01:45 PM CURRENT TOBACCO USER [facility] Advance Directives: All historical and current Section Date Range: From patient's date of to the date document was created. This section includes ALL of a patient's completed or amended CT Advance and Rescinded Directives. The entries below indicate that a directive exists for the patient, but an actual copy is not included with this document. The data comes from all CT facilities. 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 Palmira Graves MD LAST CREATININE 0.7 (04/23/24) Report Status: Verified Date Reported: APR 24, 2024 Date Verified: APR 24, 2024 Lodging Facilities Attendant E-Sig:/ES/SADIA DEE MD Report: PROCEDURES: Placement of [...] anesthesia. Using real-time CT fluoroscopy, a 5 Citizen Of [place] Yueh catheter was advanced into the collection in the left lower quadrant. A wire was coiled in the collection. The tract into the collection was dilated to accommodate the 12 Citizen Of [place] locking pigtail drainage catheter. The catheter was secured to the skin with monofilament suture and connected to JUAN bulb suction. Impression: Successful placement of a 12 Citizen [place] locking pigtail drainage catheter in the left lower quadrant abscess. This catheter is connected to JUAN bulb suction with flushes, as ordered. I, SADIA DEE, have reviewed the images and report. Primary Interpreting Staff: SADIA DEE MD, RADIOLOGIST (Lodging Facilities Attendant) Primary Interpreting Resident: JEFFREY FLOWER MD, LIFE MANAGEMENT TEACHER /SADIA SNYDER [facility] Apr 24, 2024 02:[address] NEEDLE PLACEMEN T (P): FLACA WEAVER [id number] -1950 M Ex Date: APR 24, 2024@14:11 Req Phys: TAURUS WOOD Loc: 3KS/04-24-2024@16:07 Im Loc: CT IMAGING Service: PRIMARY [place] [address] (Case [id number] COMPLETE) CT SCAN FOR NEEDLE PLACEMENT (CT Detailed) CPT:31432 Reason for Study: diverticular abscess Clinical History: Report Status: Verified Date Reported: APR 24, 2024 Date Verified: APR 24, 2024 Lodging Facilities Attendant E-Sig:/ES/SADIA DEE MD Report: PROCEDURES: Placement of [...] anesthesia. Using real-time CT fluoroscopy, a 5 Citizen Of [place] Yueh catheter was advanced into the collection in the left lower quadrant. A wire was coiled in the collection. The tract into the collection was dilated to accommodate the 12 Citizen Of [place] locking pigtail drainage catheter. The catheter was secured to the skin with monofilament suture and connected to JUAN bulb suction. Impression: Successful placement of a 12 Citizen [place] locking pigtail drainage catheter in the left lower quadrant abscess. This catheter is connected to JUAN bulb suction with flushes, as ordered. I, SADIA DEE, have reviewed the images and report. Primary Interpreting Staff: SADIA DEE MD, RADIOLOGIST (Lodging Facilities Attendant) Primary Interpreting Resident: JEFFREY FLOWER MD, LIFE MANAGEMENT TEACHER /SADIA SNYDER [facility] Apr 23, 2024 06:[address] ABDOMEN/ PELVIS: MEGFLACA YAMIL [id number] -1950 M Exm Date: APR 23, 2024@06:36 Req Phys: MCKAY VICTOR Pat Loc: 04-24-2024@10:25 [facility] [place] Loc: OUTSOURCE CT Service: Unknown (Case [id number] COMPLETE) NON CT CT ABDOMEN/PELVIS (CT Detailed) CPT:35902 Reason for Study: OUTSIDE STUDY Clinical History: OUTSIDE STUDY Report Status: Electronically Filed Date Reported: APR 24, 2024 Report: This is an outside Imaging study and/or report imported for continuity of patient care. This Imaging study and/or report was not reviewed or verified by a CT Radiologist. Impression: This is an outside Imaging study and/or report imported for continuity of patient care. This Imaging study and/or report was not reviewed or verified by a CT Radiologist. Primary Diagnostic Code: VERIFIED BY: / *ELECTRONICALLY FILED* [facility] Pathology Reports: +/- 30 [...] comes from all CT treatment facilities. Date/Time Pathology Report Provider Source Apr 21, 2024 07:28 AM LR MICROBIOLOGY RE PORT: Reporting Lab: [facility] [CLIA# [id number]] [place] [address] Accession [UID]: [id number] [[id number]] Received: Apr 21, 2024@08:16 Collection sample: URINE Collection date: Apr 21, 2024 07:28 Provider: AANNDA HUGGINS Comment on specimen: RECEIVED IN STERILE CUP Test(s) ordered: CULTURE & SUSCEPTIBILITY...... completed: Apr 22, 2024 * BACTERIOLOGY FINAL REPORT => Apr 22, 2024 08:38 TECH CODE: [id number] CULTURE RESULTS: NO GROWTH 24 HOURS Bacteriology Remark(s): THIS REPORT IS FINAL =--=--=--=--=--=--=--=--=--=--=--=- -=--=--=--=--=--=--=--=--=--=--=--= --=--=-- Performing Laboratory: Bacteriology Report Performed By: [facility] [CLIA# [id number]] [place] [address] [facility]
--- OUTSIDE RECORDS SUMMARY | 2024-05-04 01:05 | XMS_ITS | Encounter Summary ---
Author Name [facility] [place] [facility] [place] [facility] [place] Address [address] [place] [address] Care Team Providers Care Accounting Specialist Name Role Phone JATINDER BENITEZ Primary Care [...] PART A Sep 29, 2016 PART A [id number] JUDY WEAVER PATIENT Selected Encounter This section includes the information on record at [place] for the Encounter. 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 This section includes future appointments and future orders which are active, pending or scheduled. Future Appointments This section includes appointments that were scheduled to occur 6 months from the date of the Encounter, up to a maximum of 20 appointments. The data comes from all [facility]. Appointment Date/Time Appointment Type Appointme nt Facility Name Apr 27, 2024 02:30 PM AMBULATORY - NONE [facility] May 02, 2024 10:00 AM AMBULATORY - SURGERY [facility] May 04, 2024 09:00 AM AMBULATORY - NONE [facility] May 07, 2024 08:45 AM AMBULATORY - MEDICINE [facility] May 08, 2024 02:00 PM AMBULATORY - NONE [facility] May 09, 2024 07:30 AM AMBULATORY - SURGERY [facility] May 15, 2024 08:30 AM AMBULATORY MEDICINE [facility] Active, Pending, and Scheduled Orders This section includes a listing of several types of active, pending, and scheduled orders, including clinic medications orders, diagnostic test orders, procedure orders and consult orders; where the start date of the order is 45 days before the date of the Encounter or 45 days after the date of theEncounter. The data comes from all [facility]. Test Date/Time Test Type Test Details Facility Name Apr 26, 2024 10:10 AM Laboratory - Microbiology Order GRAM STAIN WOUND OTHER WC ONCE ~For Test: GRAM STAIN ~JUAN drain culture/gram stain [facility] Apr 26, 2024 10:10 AM Laboratory - Microbiology Order CULTURE & SUSCEPTIBILITY WOUND OTHER WC ONCE ~For Test: CULTURE & SUSCEPTIBILITY ~Culture sample from JUAN drain output [facility] Apr 27, 2024 02:30 PM Imaging - Ultrasound Order US AORTA (P) [facility] May 04, 2024 12:00 AM Laboratory - Chemistry Order BASIC METABOLIC PANEL+MG PLASMA SP ONCE [facility] May 08, 2024 02:00 PM Imaging - CT Scan Order CT (AP) ABDOMEN/PELVIS (P) LISANDRO [facility] Lab Results: +/- 30 days of [...] Range Comment Apr 26, 2024 07:16 AM [facility] BASIC METABOLIC PANEL+MG Specimen Type: PLASMA No comment entered. Ordering Provider: JONO RANDOLPH Report Released Date/Time: Apr 25, 2024 02:50 PM Reporting Lab: [facility] [id number] Performing Lab: [facility] [address] CREATININE 0.7 mg/dL 0.7-1.2 UREA NITROGEN 15 mg/dL 8-26 GLUCOSE 106 mg/dL H 70-100 SODIUM 139 mmol/L 136-145 POTASSIUM 3.4 mmol/L L 3.5-5.1 CHLORIDE 105 mmol/L 98-107 CO2 25 mmol/L 22-29 CALCIUM 8.5 mg/dL 8.4-10.2 MAGNESIUM 2.2 mg/dL 1.6-2.6 ANION GAP 9 mmol/L 5-15 .CREAT EGFR(CKD-EPI) >90 >60 Apr 25, 2024 05:10 PM [facility] BASIC METABOLIC PANEL+MG Specimen Type: PLASMA No comment entered. Ordering Provider: GIOVANNI ADLER Report Released Date/Time: Apr 25, 2024 05:04 PM Reporting Lab: [facility] [address] Performing Lab: [facility] [address] CREATININE 0.7 mg/dL 0.7-1.2 UREA NITROGEN 15 mg/dL 8-26 GLUCOSE 104 mg/dL H 70-100 SODIUM 139 mmol/L 136-145 POTASSIUM 3.2 mmol/L L 3.5-5.1 CHLORIDE 103 mmol/L 98-107 CO2 28 mmol/L 22-29 CALCIUM 8.5 mg/dL 8.4-10.2 MAGNESIUM 2.2 mg/dL 1.6-2.6 ANION GAP 8 mmol/L 5-15 .CREAT EGFR(CKD-EPI) >90 >60 Apr 25, 2024 07:46 AM [facility] BASIC METABOLIC PANEL+MG Specimen Type: PLASMA No comment entered. Ordering Provider: GIOVANNI ADLER Report Released Date/Time: Apr 24, 2024 12:37 PM Reporting Lab: [facility] [address] Performing Lab: [facility] [address] CREATININE 0.7 mg/dL 0.7-1.2 UREA NITROGEN 14 mg/dL 8-26 GLUCOSE 127 mg/dL H 70-100 SODIUM 139 mmol/L 136-145 POTASSIUM 2.9 mmol/L L 3.5-5.1 CHLORIDE 101 mmol/L 98-107 CO2 29 mmol/L 22-29 CALCIUM 8.7 mg/dL 8.4-10.2 MAGNESIUM 2.3 mg/dL 1.6-2.6 ANION GAP 9 mmol/L 5-15 .CREAT EGFR(CKD-EPI) >90 >60 Apr 24, 2024 04:42 PM [facility] BASIC METABOLIC PANEL+MG Specimen Type: PLASMA No comment entered. Ordering Provider: GIOVANNI ADLER Report Released Date/Time: Apr 24, 2024 12:37 PM Reporting Lab: [facility] [address] Performing Lab: [facility] [address] CREATININE 0.7 mg/dL 0.7-1.2 UREA NITROGEN 16 mg/dL 8-26 GLUCOSE 97 mg/dL 70-100 SODIUM 138 mmol/L 136-145 POTASSIUM 2.7 mmol/L L 3.5-5.1 CHLORIDE 99 mmol/L 98-107 CO2 30 mmol/L H 22-29 CALCIUM 8.4 mg/dL 8.4-10.2 MAGNESIUM 2.1 mg/dL 1.6-2.6 ANION GAP 9 mmol/L 5-15 .CREAT EGFR(CKD-EPI) >90 >60 Apr 24, 2024 07:36 AM [facility] BASIC METABOLIC PANEL+MG Specimen Type: PLASMA Comment: Critical Value Reported To: Cait Zamorano RN 8@[address] [place] [address]. Critical value report confirmed. Ordering Provider: AARON VICTOR Report Released Date/Time: Apr 23, 2024 05:30 PM Reporting Lab: [facility] [address] Performing Lab: [facility] [address] CREATININE 0.7 mg/dL 0.7-1.2 UREA NITROGEN 16 mg/dL 8-26 GLUCOSE 105 mg/dL H 70-100 SODIUM 138 mmol/L 136-145 POTASSIUM 2.3 mmol/L LL 3.5-5.1 CHLORIDE 98 mmol/L 98-107 CO2 29 mmol/L 22-29 CALCIUM 8.3 mg/dL L 8.4-10.2 MAGNESIUM 2.2 mg/dL 1.6-2.6 ANION GAP 11 mmol/L 5-15 .CREAT EGFR(CKD-EPI) >90 >60 Apr 24, 2024 07:35 AM [facility] CBC & DIFF Specimen Type: BLOOD Comment: Automated Differential Performed Ordering Provider: AARON VICTOR Report Released Date/Time: Apr 23, 2024 05:30 PM Reporting Lab: [facility] [address] Performing Lab: [facility] [address] WBC 10.49 10*3/uL 4.0-11.0 RBC 3.83 10*6/uL [...] 10*3/uL 0-0.1 Apr 23, 2024 01:20 PM [facility] LACTIC ACID Specimen Type: PLASMA No comment entered. Ordering Provider: AARON VICTOR Report Released Date/Time: Apr 23, 2024 12:05 PM Reporting Lab: [facility] [address] Performing Lab: [facility] [address] LACTIC ACID 1.5 mmol/L 0.5-2.2 Apr 23, 2024 01:20 PM [facility] PROTHROMBIN TIME/INR Specimen Type: PLASMA No comment entered. Ordering Provider: AARON VICTOR Report Released Date/Time: Apr 23, 2024 12:05 PM Reporting Lab: [facility] [address] Performing Lab: [facility] [address] .INR 1.2 H 0.8-1.1 .PT 14.5 s H 9.4-12.5 Apr 23, 2024 01:20 PM [facility] COMPREHENSIVE METABOLIC PANEL+MG Specimen Type: PLASMA No comment entered. Ordering Provider: AARON VICTOR Report Released Date/Time: Apr 23, 2024 12:05 PM Reporting Lab: [facility] [address] Performing Lab: [facility] [address] CREATININE 0.7 mg/dL 0.7-1.2 UREA NITROGEN 19 [...] >90 >60 Apr 23, 2024 01:20 PM [facility] ACT PART THROMBO TIME Specimen Type: PLASMA No comment entered. Ordering Provider: AARON VICTOR Report Released Date/Time: Apr 23, 2024 12:05 PM Reporting Lab: [facility] [address] Performing Lab: [facility] [address] APTT 29.3 s 25.1-36.5 Apr 23, 2024 01:20 PM [facility] CBC & DIFF Specimen Type: BLOOD Comment: Automated Differential Performed Ordering Provider: AARON VICTOR Report Released Date/Time: Apr 23, 2024 12:05 PM Reporting Lab: [facility] [address] Performing Lab: [facility] [address] WBC 12.50 10*3/uL H 4.0-11.0 RBC 4.07 [...] 10*3/uL 0-0.1 Apr 21, 2024 07:28 AM [facility] URINALYSIS Specimen Type: URINE No comment entered. Ordering Provider: ANANDA HUGGINS Report Released Date/Time: Apr 21, 2024 07:37 AM Reporting Lab: [facility] [address] Performing Lab: [facility] [address] URINE COLOR COLORLESS SPECIFIC GRAVITY 1.009 1.003-1.03 [...] Apr 23, 2024 01:59 PM 211.[address] [facility] Social History: Smoking Status (Most [...] 06, 2023 11:30 AM 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 [facility] Tobacco Use History This section includes a history of the smoking, or tobacco-related health factors, that were collected on or before the date of the Encounter. The data comes from the [place] facility where the Encounter took place. Date/Time Smoking Status/Tobacco Use Comment F acility May 06, 2023 11:30 AM VA-TOBACCO QUIT 15 YRS OR MORE [facility] Jun 04, 2022 09:00 AM 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 [facility] Jun 04, 2022 09:00 AM VA-TOBACCO QUIT 15 YRS OR MORE [facility] Jul 10, 2021 08:00 AM 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 [facility] Jul 10, 2021 08:00 AM VA-TOBACCO QUIT 5 TO < 15 YRS [facility] May 23, 2020 08:30 AM 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 [facility] May 23, 2020 08:30 AM VA-TOBACCO QUIT 5 TO < 15 YRS [facility] Mar 20, 2019 04:03 PM 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 [facility] Mar 20, 2019 04:03 PM VA-TOBACCO QUIT 5 TO < 15 YRS [facility] Mar 21, 2018 08:13 AM FORMER TOBACCO USER 7Y OR GREATE R [facility] Feb 24, 2017 09:24 AM FORMER TOBACCO USER 7Y OR GREATE R [facility] January 07, 2016 08:01 AM FORMER TOBACCO USE >1Y <7Y [facility] Feb 03, 2015 07:58 AM FORMER TOBACCO USE <1Y [facility] Feb 26, 2014 08:41 AM CURRENT TOBACCO USER [facility] May 13, 2011 01:45 PM CURRENT TOBACCO USER [facility] Advance Directives: All historical and current [...] Mar 23, 2016 CLINICAL WARNING [facility] Radiology Reports: +/- 30 days of [...] comes from all [place] treatment facilities. Date/Time Radiology Report Provider Source Apr 24, 2024 02:13 PM ABSCESS DRAIN PLAC EMENT PERITONEAL (P): FLACA WEAVER [id number] -1950 M Exm Date: APR 24, 2024@14:13 Req Phys: TAURUS WOOD Loc: 3K04-24-2024@16:07 Img Loc: INTERVENTIONAL RADIOLOGY Service: PRIMARY [place]ARE [place] [address] (Case [id number] COMPLETE) IR PERITONEAL/RETROPERITONEAL PER(ANI Detailed) CPT:78288 Reason for Study: diverticular abscess Clinical History: IS NOT under investigation for COVID-19 or is COVID-19 negative 73yo M with hx of recurrent diverticulitis, transferred from [facility] 04/[address] 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 Palmira Powell MD LAST CREATININE 0.7 (04/23/24) Report Status: Verified Date Reported: APR 24, 2024 Date Verified: APR 24, 2024 Mold Shaker E-Sig:/ES/SADIA DEE MD Report: PROCEDURES: Placement of [...] anesthesia. Using real-time CT fluoroscopy, a 5 Armenian Yueh catheter was advanced into the collection in the left lower quadrant. A wire was coiled in the collection. The tract into the collection was dilated to accommodate the 12 Armenian locking pigtail drainage catheter. The catheter was secured to the skin with monofilament suture and connected to JUAN bulb suction. Impression: Successful placement of a 12 Armenian locking pigtail drainage catheter in the left lower quadrant abscess. This catheter is connected to JUAN bulb suction with flushes, as ordered. I, SADIA DEE, have reviewed the images and report. Primary Interpreting Staff: SADIA DEE MD, RADIOLOGIST (Mold Shaker) Primary Interpreting Resident: JEFFREY FLOWER MD, PERMIT COORDINATOR /SADIA SNYDER [facility] Apr 24, 2024 02:[address] NEEDLE PLACEMEN T (P): FLACA WEAVER [id number] -1950 M Exm Date: APR 24, 2024@14:11 Req Phys: TAURUS WOOD Loc: 04-24-2024@16:07 Im Loc: CT IMAGING Service: PRIMARY [place] [address] (Case [id number] COMPLETE) CT SCAN FOR NEEDLE PLACEMENT (CT Detailed) CPT:68467 Reason for Study: diverticular abscess Clinical History: Report Status: Verified Date Reported: APR 24, 2024 Date Verified: APR 24, 2024 Mold Shaker E-Sig:/ES/SADIA DEE MD Report: PROCEDURES: Placement of [...] anesthesia. Using real-time CT fluoroscopy, a 5 Armenian Yueh catheter was advanced into the collection in the left lower quadrant. A wire was coiled in the collection. The tract into the collection was dilated to accommodate the 12 Armenian locking pigtail drainage catheter. The catheter was secured to the skin with monofilament suture and connected to JUAN bulb suction. Impression: Successful placement of a 12 Armenian locking pigtail drainage catheter in the left lower quadrant abscess. This catheter is connected to JUAN bulb suction with flushes, as ordered. I, SADIA DEE, have reviewed the images and report. Primary Interpreting Staff: SADIA DEE MD, RADIOLOGIST (Mold Shaker) Primary Interpreting Resident: JEFFREY FLOWER MD, PERMIT COORDINATOR /SADIA SNYDER [facility] Apr 23, 2024 06:[address] ABDOMEN/ PELVIS: FLACA WEAVER [id number] -1950 M Exm Date: APR 23, 2024@06:36 Req Phys: LISAKRISTIEMMAMCKAYLISA Patel Loc: 04-24-2024@10:25 Im Loc: OUTSOURCE CT Service: Unknown (Case [id number] COMPLETE) NON [facility] CT ABDOMEN/PELVIS (CT Detailed) CPT:06361 Reason for Study: OUTSIDE STUDY Clinical History: OUTSIDE STUDY Report Status: Electronically Filed Date Reported: APR 24, 2024 Report: This is an outside Imaging study and/or report imported for continuity of patient care. This Imaging study and/or report was not reviewed or verified by a [place] Radiologist. Impression: This is an outside Imaging study and/or report imported for continuity of patient care. This Imaging study and/or report was not reviewed or verified by a [place] Radiologist. Primary Diagnostic Code: VERIFIED BY: / *ELECTRONICALLY FILED* [facility] Pathology Reports: +/- 30 days of [...] AM LR MICROBIOLOGY RE PORT: Reporting Lab: [facility] [CLIA# [id number]] [place] [address] Accession [UID]: [id number] [[id number]] Received: Apr 21, 2024@08:16 Collection sample: URINE Collection date: Apr 21, 2024 07:28 Provider: ANANDA HUGGINS Comment on specimen: RECEIVED IN STERILE CUP Test(s) ordered: CULTURE & SUSCEPTIBILITY...... completed: Apr 22, 2024 * BACTERIOLOGY FINAL REPORT => Apr 22, 2024 08:38 TECH CODE: [id number] CULTURE RESULTS: NO GROWTH 24 HOURS Bacteriology Remark(s): THIS REPORT IS FINAL =--=--=--=--=--=--=--=--=--=--=--=- -=--=--=--=--=--=--=--=--=--=--=--= --=--=-- Performing Laboratory: Bacteriology Report Performed By: [facility] [CLIA# [id number]] [place] [address] [facility] Encounter Notes: All associated encounter notes This section contains the clinical notes associated to the Encounter. Date/Time Encounter Note(s) Provider Source Apr 23, 2024 04:00 PM COLON & RECTAL ELISA BRAEDEN ATTENDING NOTE: LOCAL TITLE: COLON-RECTAL INPT STAFF NOTE STANDARD TITLE: COLON & RECTAL SURGERY ATTENDING NOTE DATE OF NOTE: APR 23, 2024@16:00 ENTRY DATE: APR 24, 2024@16:46:44 AUTHOR: PALMIRA POWELL EXP COSIGNER: URGENCY: STATUS: COMPLETED Pt seen on rounds - see PROCTO/COLORECTAL CONSULT note from 04/23/2024. Pt d/w colorectal surgery resident and agree with her assessment and plan. IR for drain placement. IV antibiotics. Will follow closely. Total time spent reviewing chart, patient care and consultation: 45min /alexi/ PALMIRA POWELL MD STAFF SURGEON, COLON/RECTAL Signed: 04/24/2024 16:48 PALMIRA POWELL [facility]
--- OUTSIDE RECORDS SUMMARY | 2024-05-04 01:06 | XMS_ITS ---
[place] DAILY HOSPITALIZATION DATA [facility] Encounter Summary Created on: May 03, 2024 FLACA WEAVER : 1950 Sex: Male Author Name [facility] Address [address] [place] [address] Care Team Providers Care Resident Care Aid Name Role Phone JATINDER BENITEZ Primary Care [...] PART A Sep 29, 2016 PART A [id number] [phone] JUDY WEAVER PATIENT Selected Encounter This section includes the information on record at [place] for the Encounter. Date/Time Encounter Type Encounter Description Reason Pro vider Source Apr 25, 2024 02:01 PM Inpatient Visit DAILY HOSPITALIZATION DATA I[facility] Encounter Template Text not used by [place] Plan of Treatment: Future Appointments (+ 6 months) and Future Tests (+/- 45 days) The Plan of Treatment section includes future care activities for the patient from all [place] treatmentfacilities. This section includes future appointments and future orders which are active, pending or scheduled. Future Appointments This section includes appointments that were scheduled to occur 6 months from the date of the Encounter, up to a maximum of 20 appointments. The data comes from all [place] treatment facilities. Appointment Date/Time Appointment Type Appointme nt Facility Name Apr 27, 2024 02:30 PM AMBULATORY - NONE [facility] May 02, 2024 10:00 AM AMBULATORY - SURGERY [facility] May 04, 2024 09:00 [facility] May 07, 2024 08:45 AM AMBULATORY - MEDICINE [facility] May 08, 2024 02:00 PM [facility] May 09, 2024 07:30 AM AMBULATORY - SURGERY [facility] May 15, 2024 08:30 AM AMBULATORY - MEDICINE [facility] Active, Pending, and Scheduled Orders This section includes a listing of several types of active, pending, and scheduled orders, including clinic medications orders, diagnostic test orders, procedure orders and consult orders; where the start date of the order is 45 days before the date of the Encounter or 45 days after the date of theEncounter. The data comes from all [place] treatment facilities. Test Date/Time Test Type Test Details Facility Name Apr 26, 2024 10:10 AM Laboratory - Microbiology Order CULTURE & SUSCEPTIBILITY WOUND OTHER WC ONCE ~For Test: CULTURE & SUSCEPTIBILITY ~Culture sample from JUAN drain output [facility] Apr 26, 2024 10:10 AM Laboratory - Microbiology Order GRAM STAIN WOUND OTHER WC ONCE ~For Test: GRAM STAIN ~JUAN drain culture/gram stain [facility] Apr 27, 2024 02:30 PM Imaging - Ultrasound Order US AORTA (P) [facility] May 04, 2024 12:00 AM Laboratory - Chemistry Order BASIC METABOLIC PANEL+MG PLASMA SP ONCE [facility] May 08, 2024 02:00 PM Imaging - CT Scan Order CT (AP) ABDOMEN/PELVIS (P) LISANDRO [facility] Lab Results: +/- 30 days of the encounter This section includes the Chemistry and Hematology Lab Results on record with [place] for the patient. Radiology Reports and Pathology Reports are provided separately, in subsequent sections. Lab Results This section contains the Chemistry/Hematology Results that were resulted 30 days before or 30 daysafter the date of the Encounter. Date/Time Source Result Type Result - Unit Interpretation Reference Range Comment Apr 26, 2024 07:16 AM [facility] BASIC METABOLIC PANEL+MG Specimen Type: PLASMA No comment entered. Ordering Provider: JONO RANDOLPH Report Released Date/Time: Apr 25, 2024 02:50 PM Reporting Lab: [facility] [phone] Performing Lab: [facility] [phone] CREATININE 0.7 mg/dL 0.7-1.2 UREA NITROGEN 15 mg/dL 8-26 GLUCOSE 106 mg/dL H 70-100 SODIUM 139 mmol/L 136-145 POTASSIUM 3.4 mmol/L L 3.5-5.1 CHLORIDE 105 mmol/L 98-107 CO2 25 mmol/L 22-29 CALCIUM 8.5 mg/dL 8.4-10.2 MAGNESIUM 2.2 mg/dL 1.6-2.6 ANION GAP 9 mmol/L 5-15 .CREAT EGFR(CKD-EPI) >90 >60 Apr 25, 2024 05:10 PM [facility] BASIC METABOLIC PANEL+MG Specimen Type: PLASMA No comment entered. Ordering Provider: GIOVANNI ADLER Report Released Date/Time: Apr 25, 2024 05:04 PM Reporting Lab: [facility] [phone] Performing Lab: [facility] [phone] CREATININE 0.7 mg/dL 0.7-1.2 UREA NITROGEN 15 mg/dL 8-26 GLUCOSE 104 mg/dL H 70-100 SODIUM 139 mmol/L 136-145 POTASSIUM 3.2 mmol/L L 3.5-5.1 CHLORIDE 103 mmol/L 98-107 CO2 28 mmol/L 22-29 CALCIUM 8.5 mg/dL 8.4-10.2 MAGNESIUM 2.2 mg/dL 1.6-2.6 ANION GAP 8 mmol/L 5-15 .CREAT EGFR(CKD-EPI) >90 >60 Apr 25, 2024 07:46 AM [facility] BASIC METABOLIC PANEL+MG Specimen Type: PLASMA No comment entered. Ordering Provider: GIOVANNI ADLER Report Released Date/Time: Apr 24, 2024 12:37 PM Reporting Lab: [facility] [phone] Performing Lab: [facility] [phone] CREATININE 0.7 mg/dL 0.7-1.2 UREA NITROGEN 14 mg/dL 8-26 GLUCOSE 127 mg/dL H 70-100 SODIUM 139 mmol/L 136-145 POTASSIUM 2.9 mmol/L L 3.5-5.1 CHLORIDE 101 mmol/L 98-107 CO2 29 mmol/L 22-29 CALCIUM 8.7 mg/dL 8.4-10.2 MAGNESIUM 2.3 mg/dL 1.6-2.6 ANION GAP 9 mmol/L 5-15 .CREAT EGFR(CKD-EPI) >90 >60 Apr 24, 2024 04:42 PM [facility] BASIC METABOLIC PANEL+MG Specimen Type: PLASMA No comment entered. Ordering Provider: GIOVANNI ADLER Report Released Date/Time: Apr 24, 2024 12:37 PM Reporting Lab: [facility] [phone] Performing Lab: [facility] [phone] CREATININE 0.7 mg/dL 0.7-1.2 UREA NITROGEN 16 mg/dL 8-26 GLUCOSE 97 mg/dL 70-100 SODIUM 138 mmol/L 136-145 POTASSIUM 2.7 mmol/L L 3.5-5.1 CHLORIDE 99 mmol/L 98-107 CO2 30 mmol/L H 22-29 CALCIUM 8.4 mg/dL 8.4-10.2 MAGNESIUM 2.1 mg/dL 1.6-2.6 ANION GAP 9 mmol/L 5-15 .CREAT EGFR(CKD-EPI) >90 >60 Apr 24, 2024 07:36 AM [facility] BASIC METABOLIC PANEL+MG Specimen Type: PLASMA Comment: Critical Value Reported To: Cait Zamorano RN 04-24-24@08[facility]. Critical value report confirmed. Ordering Provider: AARON VICTOR Report Released Date/Time: Apr 23, 2024 05:30 PM Reporting Lab: [facility] [phone] Performing Lab: [facility] [phone] CREATININE 0.7 mg/dL 0.7-1.2 UREA NITROGEN 16 mg/dL 8-26 GLUCOSE 105 mg/dL H 70-100 SODIUM 138 mmol/L 136-145 POTASSIUM 2.3 mmol/L LL 3.5-5.1 CHLORIDE 98 mmol/L 98-107 CO2 29 mmol/L 22-29 CALCIUM 8.3 mg/dL L 8.4-10.2 MAGNESIUM 2.2 mg/dL 1.6-2.6 ANION GAP 11 mmol/L 5-15 .CREAT EGFR(CKD-EPI) >90 >60 Apr 24, 2024 07:35 AM [facility] CBC & DIFF Specimen Type: BLOOD Comment: Automated Differential Performed Ordering Provider: AARON VICTOR Report Released Date/Time: Apr 23, 2024 05:30 PM Reporting Lab: [facility] [phone] Performing Lab: [facility] [address] WBC 10.49 10*3/uL 4.0-11.0 RBC 3.83 10*6/uL [...] 10*3/uL 0-0.1 Apr 23, 2024 01:20 PM [facility] LACTIC ACID Specimen Type: PLASMA No comment entered. Ordering Provider: AARON VICTOR Report Released Date/Time: Apr 23, 2024 12:05 PM Reporting Lab: [facility] [phone] Performing Lab: [facility] [phone] LACTIC ACID 1.5 mmol/L 0.5-2.2 Apr 23, 2024 01:20 PM [facility] PROTHROMBIN TIME/INR Specimen Type: PLASMA No comment entered. Ordering Provider: AARON VICTOR Report Released Date/Time: Apr 23, 2024 12:05 PM Reporting Lab: [facility] [phone] Performing Lab: [facility] [phone] .INR 1.2 H 0.8-1.1 .PT 14.5 s H 9.4-12.5 Apr 23, 2024 01:20 PM [facility] ACT PART THROMBO TIME Specimen Type: PLASMA No comment entered. Ordering Provider: AARON VICTOR Report Released Date/Time: Apr 23, 2024 12:05 PM Reporting Lab: [facility] [phone] Performing Lab: [facility] [address] APTT 29.3 s 25.1-36.5 Apr 23, 2024 01:20 PM [facility] COMPREHENSIVE METABOLIC PANEL+MG Specimen Type: PLASMA No comment entered. Ordering Provider: AARON VICTOR Report Released Date/Time: Apr 23, 2024 12:05 PM Reporting Lab: [facility] [address] Performing Lab: [facility] [address] CREATININE 0.7 mg/dL 0.7-1.2 UREA NITROGEN 19 [...] >90 >60 Apr 23, 2024 01:20 PM [facility] CBC & DIFF Specimen Type: BLOOD Comment: Automated Differential Performed Ordering Provider: AARON VICTOR Report Released Date/Time: Apr 23, 2024 12:05 PM Reporting Lab: [facility] [phone] Performing Lab: [facility] [phone] WBC 12.50 10*3/uL H 4.0-11.0 RBC 4.07 [...] 10*3/uL 0-0.1 Apr 21, 2024 07:28 AM [facility] URINALYSIS Specimen Type: URINE No comment entered. Ordering Provider: ANANDA HUGGINS Report Released Date/Time: Apr 21, 2024 07:37 AM Reporting Lab: [facility] [phone] Performing Lab: [facility] [address] URINE COLOR COLORLESS SPECIFIC GRAVITY 1.009 1.003-1.03 [...] Height Weight Body Mass Index Source Apr 25, 2024 08:51 PM 5 [facility] Apr 25, 2024 08:[address] [facility] Apr 25, 2024 04:53 PM 6 [facility] Apr 25, 2024 04:11 PM 6 [facility] Apr 25, 2024 11:[address] [facility] Social History: Smoking Status (Most current) and Tobacco Use (All prior to encounter date) This section includes the most current, and the historical, smoking and tobacco- related health factors from the [place] facility where the Encounter took place. Current Smoking Status This section includes the most current smoking, or tobacco-related health factor, from the [place] facility where the Encounter took place. 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 The data comes from the [place] facility where the Encounter took place. Date/Time [...] ALL of a patient's completed or amended [place] Advance and Rescinded Directives. The entries below indicate that a directive exists for the patient, but an actual copy is not included with this document. The data comes from all [place] facilities. Date Advance Directives Provider Source Mar 23, 2016 CLINICAL WARNING [facility] Radiology Reports: +/- 30 [...] the Encounter. The data comes from all [place] treatment facilities. 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 Palmira Graves MD LAST CREATININE 0.7 (04/23/24) Report Status: Verified Date Reported: APR 24, 2024 Date Verified: APR 24, 2024 Lining Presser E-Sig:/ES/SADIA DEE MD Report: PROCEDURES: Placement of [...] real-time CT fluoroscopy, a 5 Citizen [place] Yueh catheter was advanced into the collection in the left lower quadrant. A wire was coiled in the collection. The tract into the collection was dilated to accommodate the 12 Citizen [place] locking pigtail drainage catheter. The catheter was secured to the skin with monofilament suture and connected to JUAN bulb suction. Impression: Successful placement of a 12 [place] locking pigtail drainage catheter in the left lower quadrant abscess. This catheter is connected to JUAN bulb suction with flushes, as ordered. I, SADIA DEE, have reviewed the images and report. Primary Interpreting Staff: SADIA DEE MD, RADIOLOGIST (Lining Presser) Primary Interpreting Resident: JEFFREY FLOWER MD, PROFESSIONAL BASS FISHERMAN /SADIA SNYDER [facility] Apr 24, 2024 02:[address] NEEDLE PLACEMEN T (P): FLACA WEAVER [id number] -1950 M Exm Date: APR 24, 2024@14:11 Req Phys: TAURUS WOOD Loc: 3KS/04-24-2024@16:07 [facility] Service: PRIMARY CARE [place] [address] (Case [id number] COMPLETE) CT SCAN FOR NEEDLE PLACEMENT (CT Detailed) CPT:51478 Reason for Study: diverticular abscess Clinical History: Report Status: Verified Date Reported: APR 24, 2024 Date Verified: APR 24, 2024 Lining Presser E-Sig:/ES/SADIA DEE MD Report: PROCEDURES: Placement of [...] real-time CT fluoroscopy, a 5 Citizen [place] Yueh catheter was advanced into the collection in the left lower quadrant. A wire was coiled in the collection. The tract into the collection was dilated to accommodate the 12 Citizen [place] locking pigtail drainage catheter. The catheter was secured to the skin with monofilament suture and connected to JUAN bulb suction. Impression: Successful placement of a 12 Citizen [place] locking pigtail drainage catheter in the left lower quadrant abscess. This catheter is connected to JUAN bulb suction with flushes, as ordered. I, SADIA DEE, have reviewed the images and report. Primary Interpreting Staff: SADIA DEE MD, RADIOLOGIST (Lining Presser) Primary Interpreting Resident: JEFFREY FLOWER MD, PROFESSIONAL BASS FISHERMAN /SADIA SNYDER [facility] Apr 23, 2024 06:[address] ABDOMEN/ PELVIS: FLACA WEAVER [id number] -1950 M Exm Date: APR 23, 2024@06:36 Req Phys: MCKAY VICTOR Pat Loc: 3K04-24-2024@10:25 [facility] [place]: [place] CT Service: Unknown (Case [id number] COMPLETE) NON [place] CT ABDOMEN/PELVIS (CT Detailed) CPT:70895 Reason for Study: OUTSIDE STUDY Clinical History: OUTSIDE STUDY Report Status: Electronically Filed Date Reported: APR 24, 2024 Report: This is an outside Imaging study and/or report imported for continuity of patient care. This Imaging study and/or report was not reviewed or verified by a [place] Radiologist. Impression: This is an outside Imaging study and/or report imported for continuity of patient care. This Imaging study and/or report was not reviewed or verified by a [place] Radiologist. Primary Diagnostic Code: VERIFIED BY: / *ELECTRONICALLY FILED* [facility] Pathology Reports: +/- 30 days of [...] the Encounter. The data comes from all [place] treatment facilities. Date/Time Pathology Report Provider Source Apr 21, 2024 07:28 AM LR MICROBIOLOGY RE PORT: Reporting Lab: [facility] [CLIA# [id number]] [place] [address] Accession [UID]: [id number] [[id number]] Received: Apr 21, 2024@08:16 Collection sample: URINE Collection date: Apr 21, 2024 07:28 Provider: ANANDA HUGGINS Comment on specimen: RECEIVED IN STERILE CUP Test(s) ordered: CULTURE & SUSCEPTIBILITY...... completed: Apr 22, 2024 * BACTERIOLOGY FINAL REPORT => Apr 22, 2024 08:38 TECH CODE: [id number] CULTURE RESULTS: NO GROWTH 24 HOURS Bacteriology Remark(s): THIS REPORT IS FINAL =--=--=--=--=--=--=--=--=--=--=--=- -=--=--=--=--=--=--=--=--=--=--=--= --=--=-- Performing Laboratory: Bacteriology Report Performed By: [facility] [CLIA# [id number]] [place] [address] [facility]
--- OUTSIDE RECORDS SUMMARY | 2024-05-04 01:06 | XMS_ITS | Encounter Summary ---
Author Name [facility] Organization [facility] Address [address] [place] [address] Care Team Providers Care Real Estate Broker Associate Name Role Phone JATINDER BENITEZ Primary Care [...] PART A Sep 29, 2016 PART A [id number] [phone] JUDY WEAVER PATIENT Selected Encounter This section includes the information on record at MD for the Encounter. Date/Time Encounter Type Encounter Description Reason Pro vider Source Apr 24, 2024 01:00 AM Inpatient Visit ADMIN PAT ACTIVTIES ([employer]) SYSTEM,CIS-ARK IHE Encounter Template Text not used by MD [...] 27, 2024 02:30 PM AMBULATORY - NONE [facility] May 02, 2024 10:00 AM AMBULATORY - SURGERY [facility] May 04, 2024 09:00 AM AMBULATORY - NONE [facility] May 07, 2024 08:45 AM AMBULATORY - MEDICINE [facility] May 08, 2024 02:00 PM AMBULATORY - NONE [facility] May 09, 2024 07:30 AM AMBULATORY - SURGERY [facility] May 15, 2024 08:30 AM AMBULATORY - MEDICINE [facility] Active, Pending, and Scheduled Orders This section includes a listing of several types of active, pending, and scheduled orders, including clinic medications orders, diagnostic test orders, procedure orders and consult orders; where the start date of the order is 45 days before the date of the Encounter or 45 days after the date of theEncounter. The data comes from all [facility]. Test Date/Time Test Type Test Details Facility Name Apr 26, 2024 10:10 AM Laboratory - Microbiology Order CULTURE & SUSCEPTIBILITY WOUND OTHER WC ONCE ~For Test: CULTURE & SUSCEPTIBILITY ~Culture sample from JUAN drain output [facility] Apr 26, 2024 10:10 AM Laboratory - Microbiology Order GRAM STAIN WOUND OTHER WC ONCE ~For Test: GRAM STAIN ~JUAN drain culture/gram stain [facility] Apr 27, 2024 02:30 PM Imaging - Ultrasound Order US AORTA (P) [facility] May 04, 2024 12:00 AM Laboratory - Chemistry Order BASIC METABOLIC PANEL+MG PLASMA SP ONCE [facility] May 08, 2024 02:00 PM Imaging - CT Scan Order CT (AP) ABDOMEN/PELVIS (P) LISANDRO [facility] Lab Results: +/- 30 days of [...] Range Comment Apr 26, 2024 07:[address] [facility] BASIC METABOLIC PANEL+MG Specimen Type: PLASMA No comment entered. Ordering Provider: JONO RANDOLPH Report Released Date/Time: Apr 25, 2024 02:50 PM Reporting Lab: [facility] [phone] Performing Lab: [facility] [address] CREATININE 0.7 mg/dL 0.7-1.2 UREA NITROGEN 15 mg/dL 8-26 GLUCOSE 106 mg/dL H 70-100 SODIUM 139 mmol/L 136-145 POTASSIUM 3.4 mmol/L L 3.5-5.1 CHLORIDE 105 mmol/L 98-107 CO2 25 mmol/L 22-29 CALCIUM 8.5 mg/dL 8.4-10.2 MAGNESIUM 2.2 mg/dL 1.6-2.6 ANION GAP 9 mmol/L 5-15 .CREAT EGFR(CKD-EPI) >90 >60 Apr 25, 2024 05:[address] [facility] BASIC METABOLIC PANEL+MG Specimen Type: PLASMA No comment entered. Ordering Provider: GIOVANNI ADLER Report Released Date/Time: Apr 25, 2024 05:04 PM Reporting Lab: [facility] [phone] Performing Lab: [facility] [address] CREATININE 0.7 mg/dL 0.7-1.2 UREA NITROGEN 15 mg/dL 8-26 GLUCOSE 104 mg/dL H 70-100 SODIUM 139 mmol/L 136-145 POTASSIUM 3.2 mmol/L L 3.5-5.1 CHLORIDE 103 mmol/L 98-107 CO2 28 mmol/L 22-29 CALCIUM 8.5 mg/dL 8.4-10.2 MAGNESIUM 2.2 mg/dL 1.6-2.6 ANION GAP 8 mmol/L 5-15 .CREAT EGFR(CKD-EPI) >90 >60 Apr 25, 2024 07:[address] [facility] BASIC METABOLIC PANEL+MG Specimen Type: PLASMA No comment entered. Ordering Provider: GIOVANNI ADLER Report Released Date/Time: Apr 24, 2024 12:37 PM Reporting Lab: [facility] [phone] Performing Lab: [facility] [address] CREATININE 0.7 mg/dL 0.7-1.2 UREA NITROGEN 14 mg/dL 8-26 GLUCOSE 127 mg/dL H 70-100 SODIUM 139 mmol/L 136-145 POTASSIUM 2.9 mmol/L L 3.5-5.1 CHLORIDE 101 mmol/L 98-107 CO2 29 mmol/L 22-29 CALCIUM 8.7 mg/dL 8.4-10.2 MAGNESIUM 2.3 mg/dL 1.6-2.6 ANION GAP 9 mmol/L 5-15 .CREAT EGFR(CKD-EPI) >90 >60 Apr 24, 2024 04:[address] [facility] BASIC METABOLIC PANEL+MG Specimen Type: PLASMA No comment entered. Ordering Provider: GIOVANNI ADLER Report Released Date/Time: Apr 24, 2024 12:37 PM Reporting Lab: [facility] [phone] Performing Lab: [facility] [address] CREATININE 0.7 mg/dL 0.7-1.2 UREA NITROGEN 16 mg/dL 8-26 GLUCOSE 97 mg/dL 70-100 SODIUM 138 mmol/L 136-145 POTASSIUM 2.7 mmol/L L 3.5-5.1 CHLORIDE 99 mmol/L 98-107 CO2 30 mmol/L H 22-29 CALCIUM 8.4 mg/dL 8.4-10.2 MAGNESIUM 2.1 mg/dL 1.6-2.6 ANION GAP 9 mmol/L 5-15 .CREAT EGFR(CKD-EPI) >90 >60 Apr 24, 2024 07:[address] [facility] BASIC METABOLIC PANEL+MG Specimen Type: PLASMA Comment: Critical Value Reported To: Cait Zamorano RN 04-24-24@[address] [place] [address]. Critical value report confirmed. Ordering Provider: AARON VICTOR Report Released Date/Time: Apr 23, 2024 05:30 PM Reporting Lab: [facility] [phone] Performing Lab: [facility] [address] CREATININE 0.7 mg/dL 0.7-1.2 UREA NITROGEN 16 mg/dL 8-26 GLUCOSE 105 mg/dL H 70-100 SODIUM 138 mmol/L 136-145 POTASSIUM 2.3 mmol/L LL 3.5-5.1 CHLORIDE 98 mmol/L 98-107 CO2 29 mmol/L 22-29 CALCIUM 8.3 mg/dL L 8.4-10.2 MAGNESIUM 2.2 mg/dL 1.6-2.6 ANION GAP 11 mmol/L 5-15 .CREAT EGFR(CKD-EPI) >90 >60 Apr 24, 2024 07:[address] [facility] CBC & DIFF Specimen Type: BLOOD Comment: Automated Differential Performed Ordering Provider: AARON VICTOR Report Released Date/Time: Apr 23, 2024 05:30 PM Reporting Lab: [facility] [address] Performing Lab: [facility] [phone] WBC 10.49 10*3/uL 4.0-11.0 RBC 3.83 10*6/uL [...] 10*3/uL 0-0.1 Apr 23, 2024 01:[address] [facility] LACTIC ACID Specimen Type: PLASMA No comment entered. Ordering Provider: AARON VICTOR Report Released Date/Time: Apr 23, 2024 12:05 PM Reporting Lab: [facility] [address] Performing Lab: [facility] [address] LACTIC ACID 1.5 mmol/L 0.5-2.2 Apr 23, 2024 01:[address] [facility] ACT PART THROMBO TIME Specimen Type: PLASMA No comment entered. Ordering Provider: AARON VICTOR Report Released Date/Time: Apr 23, 2024 12:05 PM Reporting Lab: [facility] [address] Performing Lab: [facility] [address] APTT 29.3 s 25.1-36.5 Apr 23, 2024 01:[address] [facility] PROTHROMBIN TIME/INR Specimen Type: PLASMA No comment entered. Ordering Provider: AARON VICTOR Report Released Date/Time: Apr 23, 2024 12:05 PM Reporting Lab: [facility] [address] Performing Lab: [facility] [address] .INR 1.2 H 0.8-1.1 .PT 14.5 s H 9.4-12.5 Apr 23, 2024 01:[address] [facility] COMPREHENSIVE METABOLIC PANEL+MG Specimen Type: PLASMA No comment entered. Ordering Provider: AARON VICTOR Report Released Date/Time: Apr 23, 2024 12:05 PM Reporting Lab: [facility] [address] Performing Lab: [facility] [address] CREATININE 0.7 mg/dL 0.7-1.2 UREA NITROGEN 19 [...] >90 >60 Apr 23, 2024 01:[address] [facility] CBC & DIFF Specimen Type: BLOOD Comment: Automated Differential Performed Ordering Provider: AARON VICTOR Report Released Date/Time: Apr 23, 2024 12:05 PM Reporting Lab: [facility] [address] Performing Lab: [facility] [address] WBC 12.50 10*3/uL H 4.0-11.0 RBC 4.07 [...] 10*3/uL 0-0.1 Apr 21, 2024 07:[address] [facility] URINALYSIS Specimen Type: URINE No comment entered. Ordering Provider: ANANDA HUGGINS Report Released Date/Time: Apr 21, 2024 07:37 AM Reporting Lab: [facility] [address] Performing Lab: [facility] [address] URINE COLOR COLORLESS SPECIFIC GRAVITY 1.009 1.003-1.03 [...] Source Apr 24, 2024 10:48 PM 5 [facility] Apr 24, 2024 06:35 PM 5 [facility] Apr 24, 2024 04:00 PM 59 147/71 14 0 [facility] Apr 24, 2024 12:15 PM 0 [facility] Apr 24, 2024 10:12 AM 4 [facility] Social History: Smoking Status (Most current) [...] 06, 2023 11:30 AM 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 [facility] Tobacco Use History This section includes a history of the smoking, or tobacco-related health factors, that were collected on or before the date of the Encounter. The data comes from the MD facility where the Encounter took place. Date/Time Smoking Status/Tobacco Use Comment F acility May 06, 2023 11:30 AM VA-TOBACCO QUIT [address] [facility] Jun 04, 2022 09:00 AM 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 [facility] Jun 04, 2022 09:00 AM VA-TOBACCO QUIT [address] [facility] Jul 10, 2021 08:00 AM 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 [facility] Jul 10, 2021 08:00 AM VA-TOBACCO QUIT 5 TO < [address] [facility] May 23, 2020 08:30 AM 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 [facility] May 23, 2020 08:30 AM VA-TOBACCO QUIT 5 TO < [address] [facility] Mar 20, 2019 04:03 PM 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 [facility] Mar 20, 2019 04:03 PM VA-TOBACCO QUIT 5 TO < [address] [facility] Mar 21, 2018 08:13 AM FORMER TOBACCO USER 7Y OR GREATE R [facility] Feb 24, 2017 09:24 AM FORMER TOBACCO USER 7Y OR GREATE R [facility] January 07, 2016 08:01 AM FORMER TOBACCO USE >1Y <7Y [facility] Feb 03, 2015 07:58 AM FORMER TOBACCO USE <1Y [facility] Feb 26, 2014 08:41 [address]BACCO USER [facility] May 13, 2011 01:[address] USER [facility] Advance Directives: All historical and current Section Date Range: From patient's date of to the date document was created. This section includes ALL of a patient's completed or amended MD Advance and Rescinded Directives. The entries below indicate that a directive exists for the patient, but an actual copy is not included with this document. The data comes from all MD facilities. Date Advance Directives Provider Source Mar 23, 2016 CLINICAL WARNING GOLDIETIM HINDS [facility] Radiology Reports: +/- 30 days of [...] comes from all MD treatment facilities. Date/Time Radiology Report Provider Source Apr 24, 2024 02:13 PM ABSCESS DRAIN PLAC EMENT PERITONEAL (P): MEGFLACA YAMIL [id number] -1950 M Exm Date: APR 24, 2024@14:13 Req Phys: TAURUS WOOD Loc: 3K04-24-2024@16:07 Img Loc: INTERVENTIONAL RADIOLOGY Service: PRIMARY [place] [address] (Case [id number] COMPLETE) IR PERITONEAL/RETROPERITONEAL PER(ANI Detailed) CPT:34657 Reason for Study: diverticular abscess Clinical History: [place] IS NOT under investigation for COVID-19 or is COVID-19 negative 73yo M with hx of recurrent diverticulitis, transferred from [facility] 04/[address] 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 Palmira Graves MD LAST CREATININE 0.7 (04/23/24) Report Status: Verified Date Reported: APR 24, 2024 Date Verified: APR 24, 2024 Dancing Teacher E-Sig:/ES/SADIA DEE MD Report: PROCEDURES: Placement of [...] anesthesia. Using real-time CT fluoroscopy, a 5 Singaporean Yueh catheter was advanced into the collection in the left lower quadrant. A wire was coiled in the collection. The tract into the collection was dilated to accommodate the 12 Singaporean locking pigtail drainage catheter. The catheter was secured to the skin with monofilament suture and connected to JUAN bulb suction. Impression: Successful placement of a 12 Singaporean locking pigtail drainage catheter in the left lower quadrant abscess. This catheter is connected to JUAN bulb suction with flushes, as ordered. I, SADIA DEE, have reviewed the images and report. Primary Interpreting Staff: SADIA DEE MD, RADIOLOGIST (Dancing Teacher) Primary Interpreting Resident: JEFFREY FLOWER MD, SAMPLE CUTTER /SADIA SNYDER [facility] Apr 24, 2024 02:[address] NEEDLE PLACEMEN T (P): MEGFLACA YAMIL [id number] -1950 M Exm Date: APR 24, 2024@14:11 Req Phys: TAURUS WOOD Loc: 3KS04-24-2024@16:07 [facility] [place] Service: [place] [address] (Case [id number] COMPLETE) CT SCAN FOR NEEDLE PLACEMENT (CT Detailed) CPT:34798 Reason for Study: diverticular abscess Clinical History: Report Status: Verified Date Reported: APR 24, 2024 Date Verified: APR 24, 2024 Dancing Teacher E-Sig:/ES/SADIA DEE MD Report: PROCEDURES: Placement of [...] anesthesia. Using real-time CT fluoroscopy, a 5 Singaporean Yueh catheter was advanced into the collection in the left lower quadrant. A wire was coiled in the collection. The tract into the collection was dilated to accommodate the 12 Singaporean locking pigtail drainage catheter. The catheter was secured to the skin with monofilament suture and connected to JUAN bulb suction. Impression: Successful placement of a 12 Singaporean locking pigtail drainage catheter in the left lower quadrant abscess. This catheter is connected to JUAN bulb suction with flushes, as ordered. I, SADIA DEE, have reviewed the images and report. Primary Interpreting Staff: SADIA DEE MD, RADIOLOGIST (Dancing Teacher) Primary Interpreting Resident: JEFFREY FLOWER MD, SAMPLE CUTTER /SADIA SNYDER [facility] Apr 23, 2024 06:[address] ABDOMEN/ PELVIS: FLACA WEAVER [id number] -1950 M Exm Date: APR 23, 2024@06:36 Req Phys: MCKAY VICTOR Pat Loc: 04-24-2024@10:25 [facility] [place]: [place] CT Service: Unknown (Case [id number] COMPLETE) NON VA CT ABDOMEN/PELVIS (CT Detailed) CPT:30661 Reason for Study: OUTSIDE STUDY Clinical History: OUTSIDE STUDY Report Status: Electronically Filed Date Reported: APR 24, 2024 Report: This is an outside Imaging study and/or report imported for continuity of patient care. This Imaging study and/or report was not reviewed or verified by a MD Radiologist. Impression: This is an outside Imaging study and/or report imported for continuity of patient care. This Imaging study and/or report was not reviewed or verified by a MD Radiologist. Primary Diagnostic Code: VERIFIED BY: / *ELECTRONICALLY FILED* [facility] Pathology Reports: +/- 30 days of [...] AM LR MICROBIOLOGY RE PORT: Reporting Lab: [facility] [CLIA# [id number]] [place] [address] Accession [UID]: [id number] [[id number]] Received: Apr 21, 2024@08:16 Collection sample: URINE Collection date: Apr 21, 2024 07:28 Provider: ANANDA HUGGINS Comment on specimen: RECEIVED IN STERILE CUP Test(s) ordered: CULTURE & SUSCEPTIBILITY...... completed: Apr 22, 2024 * BACTERIOLOGY FINAL REPORT => Apr 22, 2024 08:38 TECH CODE: [id number] CULTURE RESULTS: NO GROWTH 24 HOURS Bacteriology Remark(s): THIS REPORT IS FINAL =--=--=--=--=--=--=--=--=--=--=--=- -=--=--=--=--=--=--=--=--=--=--=--= --=--=-- Performing Laboratory: Bacteriology Report Performed By: [facility] [CLIA# [id number]] [place] [address] [facility] Encounter Notes: All associated encounter notes This section contains the clinical notes associated to the Encounter. Date/Time Encounter Note(s) Provider Source Apr 24, 2024 01:00 AM CRITICAL CARE UNIT NOTE: LOCAL TITLE: [facility] INPATIENT FLOWSHEET STANDARD TITLE: CRITICAL CARE UNIT NOTE DATE OF NOTE: APR 24, 2024@01:00 ENTRY DATE: APR 25, 2024@14:34:06 AUTHOR: PETERSONCadenceMD EXP COSIGNER: URGENCY: STATUS: COMPLETED This is a place aranda only. Please see Qriously to view document. /es/ [employer] SYSTEM ICU DOCUMENT IMPORT Signed: 04/25/2024 14:[address] [facility] Apr 24, 2024 01:00 AM CRITICAL CARE UNIT NOTE: LOCAL TITLE: [facility] RESPIRATORY THERAPY FLOWSHEET STANDARD TITLE: CRITICAL CARE UNIT NOTE DATE OF NOTE: APR 24, 2024@01:00 ENTRY DATE: APR 25, 2024@15:04:18 AUTHOR: PETERSONCadenceMD EXP COSIGNER: URGENCY: STATUS: COMPLETED This is a place aranda only. Please see Qriously to view document. /es/ [employer] SYSTEM ICU DOCUMENT IMPORT Signed: 04/25/2024 15:[address] [facility]
--- OUTSIDE RECORDS SUMMARY | 2024-05-04 01:06 | XMS_ITS ---
OR DAILY HOSPITALIZATION DATA [facility] Encounter Summary Created on: May 03, 2024 FLACA WEAVER : 1950 Sex: Male Author Name [facility] Organization [facility] Address [address] [place] [address] Care Team Providers Care Manager Van Name Role Phone JATINDER BENITEZ Primary Care [...] PART A Sep 29, 2016 PART A [id number] [phone] JUDY WEAVER PATIENT Selected Encounter This section includes the information on record at OR for the Encounter. Date/Time Encounter Type Encounter Description Reason Pro vider Source Apr 24, 2024 07:23 PM Inpatient Visit DAILY HOSPITALIZATION DATA [facility] Encounter Template Text not used by OR Plan of Treatment: Future Appointments (+ 6 months) and Future Tests (+/- 45 days) The Plan of Treatment section includes future care activities for the patient from all OR treatmentfacilities. This section includes future appointments and future orders which are active, pending or scheduled. Future Appointments This section includes appointments that were scheduled to occur 6 months from the date of the Encounter, up to a maximum of 20 appointments. The data comes from all OR treatment facilities. Appointment Date/Time Appointment Type Appointme nt Facility Name Apr 27, 2024 02:30 PM AMBULATORY - NONE [facility] May 02, 2024 10:00 AM [facility] May 04, 2024 09:00 AM [facility] May 07, 2024 08:45 AM [facility] May 08, 2024 02:00 PM [facility] May 09, 2024 07:30 AM [facility] May 15, 2024 08:30 AM AMBULATORY - MEDICINE [facility] Active, Pending, and Scheduled Orders This section includes a listing of several types of active, pending, and scheduled orders, including clinic medications orders, diagnostic test orders, procedure orders and consult orders; where the start date of the order is 45 days before the date of the Encounter or 45 days after the date of theEncounter. The data comes from all OR treatment facilities. Test Date/Time Test Type Test Details Facility Name Apr 26, 2024 10:10 AM Laboratory - Microbiology Order CULTURE & SUSCEPTIBILITY WOUND OTHER WC ONCE ~For Test: CULTURE & SUSCEPTIBILITY ~Culture sample from JUAN drain output [facility] Apr 26, 2024 10:10 AM Laboratory - Microbiology Order GRAM STAIN WOUND OTHER WC ONCE ~For Test: GRAM STAIN ~JUAN drain culture/gram stain [facility] Apr 27, 2024 02:30 PM Imaging - Ultrasound Order US AORTA (P) [facility] May 04, 2024 12:00 AM Laboratory - Chemistry Order BASIC METABOLIC PANEL+MG PLASMA SP ONCE [facility] May 08, 2024 02:00 PM Imaging - CT Scan Order CT (AP) ABDOMEN/PELVIS (P) LISANDRO [facility] Lab Results: +/- 30 days of the encounter This section includes the Chemistry and Hematology Lab Results on record with OR for the patient. Radiology Reports and Pathology Reports are provided separately, in subsequent sections. Lab Results This section contains the Chemistry/Hematology Results that were resulted 30 days before or 30 daysafter the date of the Encounter. Date/Time Source Result Type Result - Unit Interpretation Reference Range Comment Apr 26, 2024 07:[address] [facility] BASIC METABOLIC PANEL+MG Specimen Type: PLASMA No comment entered. Ordering Provider: JONO RANDOLPH Report Released Date/Time: Apr 25, 2024 02:50 PM Reporting Lab: [facility] [phone] Performing Lab: [facility] [address] CREATININE 0.7 mg/dL 0.7-1.2 UREA NITROGEN 15 mg/dL 8-26 GLUCOSE 106 mg/dL H 70-100 SODIUM 139 mmol/L 136-145 POTASSIUM 3.4 mmol/L L 3.5-5.1 CHLORIDE 105 mmol/L 98-107 CO2 25 mmol/L 22-29 CALCIUM 8.5 mg/dL 8.4-10.2 MAGNESIUM 2.2 mg/dL 1.6-2.6 ANION GAP 9 mmol/L 5-15 .CREAT EGFR(CKD-EPI) >90 >60 Apr 25, 2024 05:[address] [facility] BASIC METABOLIC PANEL+MG Specimen Type: PLASMA No comment entered. Ordering Provider: GIOVANNI ADLER Report Released Date/Time: Apr 25, 2024 05:04 PM Reporting Lab: [facility] [phone] Performing Lab: [facility] [phone] CREATININE 0.7 mg/dL 0.7-1.2 UREA NITROGEN 15 mg/dL 8-26 GLUCOSE 104 mg/dL H 70-100 SODIUM 139 mmol/L 136-145 POTASSIUM 3.2 mmol/L L 3.5-5.1 CHLORIDE 103 mmol/L 98-107 CO2 28 mmol/L 22-29 CALCIUM 8.5 mg/dL 8.4-10.2 MAGNESIUM 2.2 mg/dL 1.6-2.6 ANION GAP 8 mmol/L 5-15 .CREAT EGFR(CKD-EPI) >90 >60 Apr 25, 2024 07:[address] [facility] BASIC METABOLIC PANEL+MG Specimen Type: PLASMA No comment entered. Ordering Provider: GIOVANNI ADLER Report Released Date/Time: Apr 24, 2024 12:37 PM Reporting Lab: [facility] [phone] Performing Lab: [facility] [address] CREATININE 0.7 mg/dL 0.7-1.2 UREA NITROGEN 14 mg/dL 8-26 GLUCOSE 127 mg/dL H 70-100 SODIUM 139 mmol/L 136-145 POTASSIUM 2.9 mmol/L L 3.5-5.1 CHLORIDE 101 mmol/L 98-107 CO2 29 mmol/L 22-29 CALCIUM 8.7 mg/dL 8.4-10.2 MAGNESIUM 2.3 mg/dL 1.6-2.6 ANION GAP 9 mmol/L 5-15 .CREAT EGFR(CKD-EPI) >90 >60 Apr 24, 2024 04:[address] [facility] BASIC METABOLIC PANEL+MG Specimen Type: PLASMA No comment entered. Ordering Provider: GIOVANNI ADLER Report Released Date/Time: Apr 24, 2024 12:37 PM Reporting Lab: [facility] [phone] Performing Lab: [facility] [address] CREATININE 0.7 mg/dL 0.7-1.2 UREA NITROGEN 16 mg/dL 8-26 GLUCOSE 97 mg/dL 70-100 SODIUM 138 mmol/L 136-145 POTASSIUM 2.7 mmol/L L 3.5-5.1 CHLORIDE 99 mmol/L 98-107 CO2 30 mmol/L H 22-29 CALCIUM 8.4 mg/dL 8.4-10.2 MAGNESIUM 2.1 mg/dL 1.6-2.6 ANION GAP 9 mmol/L 5-15 .CREAT EGFR(CKD-EPI) >90 >60 Apr 24, 2024 07:[address] [facility] BASIC METABOLIC PANEL+MG Specimen Type: PLASMA Comment: Critical Value Reported To: Cait Zamorano RN 04-24-24@08[facility]. Critical value report confirmed. Ordering Provider: AARON VICTOR Report Released Date/Time: Apr 23, 2024 05:30 PM Reporting Lab: [facility] [phone] Performing Lab: [facility] [address] CREATININE 0.7 mg/dL 0.7-1.2 UREA NITROGEN 16 mg/dL 8-26 GLUCOSE 105 mg/dL H 70-100 SODIUM 138 mmol/L 136-145 POTASSIUM 2.3 mmol/L LL 3.5-5.1 CHLORIDE 98 mmol/L 98-107 CO2 29 mmol/L 22-29 CALCIUM 8.3 mg/dL L 8.4-10.2 MAGNESIUM 2.2 mg/dL 1.6-2.6 ANION GAP 11 mmol/L 5-15 .CREAT EGFR(CKD-EPI) >90 >60 Apr 24, 2024 07:[address] [facility] CBC & DIFF Specimen Type: BLOOD Comment: Automated Differential Performed Ordering Provider: AARON VICTOR Report Released Date/Time: Apr 23, 2024 05:30 PM Reporting Lab: [facility] [address] Performing Lab: [facility] [address] WBC 10.49 10*3/uL 4.0-11.0 RBC 3.83 10*6/uL [...] 0-0.1 Apr 23, 2024 01:[address] [facility] LACTIC ACID Specimen Type: PLASMA No comment entered. Ordering Provider: AARON VICTOR Report Released Date/Time: Apr 23, 2024 12:05 PM Reporting Lab: [facility] [address] Performing Lab: [facility] [address] LACTIC ACID 1.5 mmol/L 0.5-2.2 Apr 23, 2024 01:[address] [facility] ACT PART THROMBO TIME Specimen Type: PLASMA No comment entered. Ordering Provider: AARON VICTOR Report Released Date/Time: Apr 23, 2024 12:05 PM Reporting Lab: [facility] [address] Performing Lab: [facility] [address] APTT 29.3 s 25.1-36.5 Apr 23, 2024 01:[address] [facility] PROTHROMBIN TIME/INR Specimen Type: PLASMA No comment entered. Ordering Provider: AARON VICTOR Report Released Date/Time: Apr 23, 2024 12:05 PM Reporting Lab: [facility] [address] Performing Lab: [facility] [address] .INR 1.2 H 0.8-1.1 .PT 14.5 s H 9.4-12.5 Apr 23, 2024 01:[address] [facility] COMPREHENSIVE METABOLIC PANEL+MG Specimen Type: PLASMA No comment entered. Ordering Provider: AARON VICTOR Report Released Date/Time: Apr 23, 2024 12:05 PM Reporting Lab: [facility] [address] Performing Lab: [facility] [address] CREATININE 0.7 mg/dL 0.7-1.2 UREA NITROGEN 19 [...] >60 Apr 23, 2024 01:[address] [facility] CBC & DIFF Specimen Type: BLOOD Comment: Automated Differential Performed Ordering Provider: AARON VICTOR Report Released Date/Time: Apr 23, 2024 12:05 PM Reporting Lab: [facility] [address] Performing Lab: [facility] [address] WBC 12.50 10*3/uL H 4.0-11.0 RBC 4.07 [...] 0-0.1 Apr 21, 2024 07:[address] [facility] URINALYSIS Specimen Type: URINE No comment entered. Ordering Provider: ANANDA HUGGINS Report Released Date/Time: Apr 21, 2024 07:37 AM Reporting Lab: [facility] [address] Performing Lab: [facility] [address] URINE COLOR COLORLESS SPECIFIC GRAVITY 1.009 1.003-1.03 [...] Source Apr 24, 2024 10:48 PM 5 [facility] Apr 24, 2024 06:35 PM 5 [facility] Apr 24, 2024 04:00 PM 59 147/71 14 0 [facility] Apr 24, 2024 12:15 PM 0 [facility] Apr 24, 2024 10:12 AM 4 [facility] Social History: Smoking Status (Most [...] 2023 11:30 AM 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 [facility] Tobacco Use History This section includes a history of the smoking, or tobacco-related health factors, that were collected on or before the date of the Encounter. The data comes from the OR facility where the Encounter took place. Date/Time Smoking Status/Tobacco Use Comment F acility May 06, 2023 11:30 AM VA-TOBACCO QUIT [address] [facility] Jun 04, 2022 09:00 AM VA-TOBACCO FORMER USER [facility] Jun 04, 2022 09:00 AM VA-TOBACCO QUIT [address] [facility] Jul 10, 2021 08:00 AM VA-TOBACCO FORMER USER [facility] Jul 10, 2021 08:00 AM VA-TOBACCO QUIT 5 TO < [address] [facility] May 23, 2020 08:30 AM VA-TOBACCO FORMER USER [facility] May 23, 2020 08:30 AM VA-TOBACCO QUIT 5 TO < [address] [facility] Mar 20, 2019 04:03 PM VA-TOBACCO FORMER USER [facility] Mar 20, 2019 04:03 PM VA-TOBACCO QUIT 5 TO < [address] [facility] Mar 21, 2018 08:13 AM FORMER TOBACCO USER 7Y OR GREATE R [facility] Feb 24, 2017 09:24 AM FORMER TOBACCO USER 7Y OR GREATE R [facility] January 07, 2016 08:01 AM FORMER TOBACCO USE >1Y <7Y [facility] Feb 03, 2015 07:58 AM FORMER TOBACCO USE <1Y [facility] Feb 26, 2014 08:41 AM [address]RENT TOBACCO USER [facility] May 13, 2011 01:45 PM CURRENT TOBACCO USER [facility] Advance Directives: All historical and current Section Date Range: From patient's date of to the date document was created. This section includes ALL of a patient's completed or amended OR Advance and Rescinded Directives. The entries below indicate that a directive exists for the patient, but an actual copy is not included with this document. The data comes from all OR facilities. Date Advance Directives Provider Source Mar [...] comes from all OR treatment facilities. Date/Time Radiology Report Provider Source Apr 24, 2024 02:13 PM ABSCESS DRAIN PLAC EMENT PERITONEAL (P): FLACA WEAVER [id number] -1950 M Exm Date: APR 24, 2024@14:13 Req Phys: TAURUS WOOD Loc: 3K04-24-2024@16:07 Img Loc: INTERVENTIONAL RADIOLOGY Service: PRIMARY [place] [address] (Case [id number] COMPLETE) IR PERITONEAL/RETROPERITONEAL PER(ANI Detailed) CPT:39936 Reason for Study: diverticular abscess Clinical History: [...] any questions or notifications of critical findings: [id number] If ordering provider is a trainee, enter the name and contact information of the responsible staff physician. Palmira Graves MD LAST CREATININE 0.7 (04/23/24) Report Status: Verified Date Reported: APR 24, 2024 Date Verified: APR 24, 2024 Instrument Adjuster E-Sig:/ES/SADIA DEE MD Report: PROCEDURES: Placement of [...] anesthesia. Using real-time CT fluoroscopy, a 5 Hungarian Yueh catheter was advanced into the collection in the left lower quadrant. A wire was coiled in the collection. The tract into the collection was dilated to accommodate the 12 Hungarian locking pigtail drainage catheter. The catheter was secured to the skin with monofilament suture and connected to JUAN bulb suction. Impression: Successful placement of a 12 Hungarian locking pigtail drainage catheter in the left lower quadrant abscess. This catheter is connected to JUAN bulb suction with flushes, as ordered. I, SADIA DEE, have reviewed the images and report. Primary Interpreting Staff: SADIA DEE MD, RADIOLOGIST (Instrument Adjuster) Primary Interpreting Resident: JEFFREY FLOWER MD, ACADEMIC COORDINATOR /SADIA SNYDER [facility] Apr 24, 2024 02:[address] NEEDLE PLACEMEN T (P): FLACA WEAVER [id number] -1950 M Ex Date: APR 24, 2024@14:11 Req Phys: TAURUS WOOD Loc: 3KS/04-24-2024@16:07 Im Loc: CT IMAGING Service: PRIMARY [place] [address] (Case [id number] COMPLETE) CT SCAN FOR NEEDLE PLACEMENT (CT Detailed) CPT:90534 Reason for Study: diverticular abscess Clinical History: Report Status: Verified Date Reported: APR 24, 2024 Date Verified: APR 24, 2024 Instrument Adjuster E-Sig:/ES/SADIA DEE MD Report: PROCEDURES: Placement of [...] anesthesia. Using real-time CT fluoroscopy, a 5 Hungarian Yueh catheter was advanced into the collection in the left lower quadrant. A wire was coiled in the collection. The tract into the collection was dilated to accommodate the 12 Hungarian locking pigtail drainage catheter. The catheter was secured to the skin with monofilament suture and connected to JUAN bulb suction. Impression: Successful placement of a 12 Hungarian locking pigtail drainage catheter in the left lower quadrant abscess. This catheter is connected to JUAN bulb suction with flushes, as ordered. I, SADIA DEE, have reviewed the images and report. Primary Interpreting Staff: SADIA DEE MD, RADIOLOGIST (Instrument Adjuster) Primary Interpreting Resident: JEFFREY FLOWER MD, ACADEMIC COORDINATOR /SADIA SNYDER [facility] Apr 23, 2024 06:[address] ABDOMEN/ PELVIS: MEGFLACA YAMIL [id number] -1950 M Exm Date: APR 23, 2024@06:36 Req Phys: MCKAY VICTOR Pat Loc: 04-24-2024@10:25 [facility] Loc: OUTSOURCE CT Service: Unknown (Case [id number] COMPLETE) NON OR CT ABDOMEN/PELVIS (CT Detailed) CPT:22130 Reason for Study: OUTSIDE STUDY Clinical History: OUTSIDE STUDY Report Status: Electronically Filed Date Reported: APR 24, 2024 Report: This is an outside Imaging study and/or report imported for continuity of patient care. This Imaging study and/or report was not reviewed or verified by a OR Radiologist. Impression: This is an outside Imaging study and/or report imported for continuity of patient care. This Imaging study and/or report was not reviewed or verified by a OR Radiologist. Primary Diagnostic Code: VERIFIED BY: / *ELECTRONICALLY FILED* [facility] Pathology Reports: +/- 30 days [...] LR MICROBIOLOGY RE PORT: Reporting Lab: [facility] [CLIA# [id number]] [place] [address] Accession [UID]: [id number] [[id number]] Received: Apr 21, 2024@08:16 Collection sample: URINE Collection date: Apr 21, 2024 07:28 Provider: ANANDA HUGGINS Comment on specimen: RECEIVED IN STERILE CUP Test(s) ordered: CULTURE & SUSCEPTIBILITY...... completed: Apr 22, 2024 * BACTERIOLOGY FINAL REPORT => Apr 22, 2024 08:38 TECH CODE: [id number] CULTURE RESULTS: NO GROWTH 24 HOURS Bacteriology Remark(s): THIS REPORT IS FINAL =--=--=--=--=--=--=--=--=--=--=--=- -=--=--=--=--=--=--=--=--=--=--=--= --=--=-- Performing Laboratory: Bacteriology Report Performed By: [facility] [CLIA# [id number]] [address] [place] [address] [facility]
--- OUTSIDE RECORDS SUMMARY | 2024-05-04 01:06 | XMS_ITS ---
[place] DAILY HOSPITALIZATION DATA [facility] Encounter Summary Created on: May 03, 2024 FLACA WEAVER : 1950 Sex: Male Author Name [facility] [place] [facility] [place] Address [address] [place] [address] Care Team Providers Care Projection Welding Machine Operator Name Role Phone JATINDER BENITEZ Primary [...] PART A Sep 29, 2016 PART A [id number] [phone] JUDY WEAVER PATIENT Selected Encounter This section includes the information on record at [place] for the Encounter. Date/Time Encounter Type Encounter Description Reason Pro vider Source Apr 25, 2024 02:11 PM Inpatient Visit DAILY HOSPITALIZATION DATA I[facility] Encounter Template Text not used by [place] Plan of Treatment: Future Appointments (+ 6 months) and Future Tests (+/- 45 days) The Plan of Treatment section includes future care activities for the patient from all [place] treatmentfacilities. This section includes future appointments and [...] 02, 2024 10:00 AM AMBULATORY - SURGERY [facility] May 04, 2024 09:00 AM [facility] May 07, 2024 08:45 AM AMBULATORY - MEDICINE [facility] May 08, 2024 02:00 PM [facility] May 09, 2024 07:30 AM AMBULATORY - SURG[facility] May 15, 2024 08:30 AM AMBULATORY - MEDICINE [facility] Active, Pending, and Scheduled Orders This section includes a listing of several types of active, pending, and scheduled orders, including clinic medications orders, diagnostic test orders, procedure orders and consult orders; where the start date of the order is 45 days before the date of the Encounter or 45 days after the date of theEncounter. The data comes from all [place] treatment facilities. Test Date/Time Test Type Test [...] and Hematology Lab Results on record with [place] for the patient. Radiology Reports and Pathology [...] 02:50 PM Reporting Lab: [facility] [address] Performing Lab: [facility] [address] CREATININE 0.7 mg/dL 0.7-1.2 UREA NITROGEN 15 [...] PM Reporting Lab: [facility] [address] Performing Lab: [facility] [address] CREATININE 0.7 mg/dL 0.7-1.2 UREA NITROGEN 15 [...] PM Reporting Lab: [facility] [address] Performing Lab: [facility] [address] CREATININE 0.7 mg/dL 0.7-1.2 UREA NITROGEN 14 [...] PM Reporting Lab: [facility] [address] Performing Lab: [facility] [address] CREATININE 0.7 mg/dL 0.7-1.2 UREA NITROGEN 16 [...] Critical Value Reported To: Cait Zamorano RN 04-24-24@08[facility]. Critical value report confirmed. Ordering Provider: AARON VICTOR Report Released Date/Time: Apr 23, 2024 05:30 PM Reporting Lab: [facility] [address] Performing Lab: [facility] [address] CREATININE 0.7 mg/dL 0.7-1.2 UREA NITROGEN 16 [...] PM Reporting Lab: [facility] [address] Performing Lab: [facility] [address] WBC 10.49 10*3/uL 4.0-11.0 RBC 3.83 10*6/uL [...] PM Reporting Lab: [facility] [address] Performing Lab: [facility] [address] LACTIC ACID 1.5 mmol/L 0.5-2.2 Apr 23, 2024 01:20 PM [facility] ACT PART THROMBO TIME Specimen Type: PLASMA No comment entered. Ordering Provider: AARON VICTOR Report Released Date/Time: Apr 23, 2024 12:05 PM Reporting Lab: [facility] [address] Performing Lab: [facility] [address] APTT 29.3 s 25.1-36.5 Apr 23, 2024 01:20 PM [facility] PROTHROMBIN TIME/INR Specimen Type: PLASMA No comment entered. Ordering Provider: AARON VICTOR Report Released Date/Time: Apr 23, 2024 12:05 PM Reporting Lab: [facility] [address] Performing Lab: [facility] [address] .INR 1.2 H 0.8-1.1 .PT 14.5 s H 9.4-12.5 Apr 23, 2024 01:20 PM [facility] COMPREHENSIVE METABOLIC PANEL+MG Specimen Type: PLASMA No comment entered. Ordering Provider: AARON VICTOR Report Released Date/Time: Apr 23, 2024 12:05 PM Reporting Lab: [facility] [address] Performing Lab: [facility] [address] CREATININE 0.7 mg/dL 0.7-1.2 UREA NITROGEN 19 [...] PM Reporting Lab: [facility] [address] Performing Lab: [facility] [address] WBC 12.50 10*3/uL H 4.0-11.0 RBC 4.07 [...] AM Reporting Lab: [facility] [address] Performing Lab: [facility] [address] URINE COLOR COLORLESS SPECIFIC GRAVITY 1.009 1.003-1.03 [...] Source Apr 25, 2024 08:51 PM 5 [facility] Apr 25, 2024 08:50 PM 5 [facility] Apr 25, 2024 04:53 PM 6 [facility] Apr 25, 2024 04:11 PM 6 [facility] Apr 25, 2024 11:59 AM 6 [facility] Social History: Smoking Status (Most current) [...] 06, 2023 11:30 AM VA-TOBACCO FORMER USER [facility] Tobacco Use History This [...] this document. The data comes from all [place] facilities. Date Advance Directives Provider Source Mar 23, 2016 CLINICAL WARNING [facility] Radiology Reports: +/- 30 days of [...] DRAIN PLAC EMENT PERITONEAL (P): FLACA WEAVER [id number] -1950 M Exm Date: APR 24, 2024@14:13 Req Phys: TAURUS WOOD Loc: 04-24-2024@16:07 Img Loc: INTERVENTIONAL RADIOLOGY Service: PRIMARY [place] [address] (Case [id number] COMPLETE) IR PERITONEAL/RETROPERITONEAL PER(ANI Detailed) CPT:02170 Reason for Study: diverticular abscess Clinical History: [place] IS NOT under investigation for COVID-19 or is COVID-19 negative 73yo M with hx of recurrent diverticulitis, transferred from OSH 04/[address] 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 Palmira Graves MD LAST CREATININE 0.7 (04/23/24) Report Status: Verified Date Reported: APR 24, 2024 Date Verified: APR 24, 2024 Sound Technician Supervisor E-Sig:/ES/SADIA DEE MD Report: PROCEDURES: Placement of [...] anesthesia. Using real-time CT fluoroscopy, a 5 Guatemalan Yueh catheter was advanced into the collection in the left lower quadrant. A wire was coiled in the collection. The tract into the collection was dilated to accommodate the 12 Guatemalan locking pigtail drainage catheter. The catheter was secured to the skin with monofilament suture and connected to JUAN bulb suction. Impression: Successful placement of a 12 Guatemalan locking pigtail drainage catheter in the left lower quadrant abscess. This catheter is connected to JUAN bulb suction with flushes, as ordered. I, SADIA DEE, have reviewed the images and report. Primary Interpreting Staff: SADIA DEE MD, RADIOLOGIST (Sound Technician Supervisor) Primary Interpreting Resident: JEFFREY FLOWER MD, DIE SINKING MACHINE OPERATOR /SADIA SNYDER [facility] Apr 24, 2024 02:[address] NEEDLE PLACEMEN T (P): FLACA WEAVER [id number] -1950 M Exm Date: APR 24, 2024@14:11 Req Phys: TAURUS WOOD Loc: 3KS/04-24-2024@16:07 [facility] Loc: CT IMAGING Service: PRIMARY [place] [address] (Case [id number] COMPLETE) CT SCAN FOR NEEDLE PLACEMENT (CT Detailed) CPT:43574 Reason for Study: diverticular abscess Clinical History: Report Status: Verified Date Reported: APR 24, 2024 Date Verified: APR 24, 2024 Sound Technician Supervisor E-Sig:/ES/SADIA DEE MD Report: PROCEDURES: Placement of [...] anesthesia. Using real-time CT fluoroscopy, a 5 Guatemalan Yueh catheter was advanced into the collection in the left lower quadrant. A wire was coiled in the collection. The tract into the collection was dilated to accommodate the 12 Guatemalan locking pigtail drainage catheter. The catheter was secured to the skin with monofilament suture and connected to JUAN bulb suction. Impression: Successful placement of a 12 Guatemalan locking pigtail drainage catheter in the left lower quadrant abscess. This catheter is connected to JUAN bulb suction with flushes, as ordered. I, SADIA DEE, have reviewed the images and report. Primary Interpreting Staff: SADIA DEE MD, RADIOLOGIST (Sound Technician Supervisor) Primary Interpreting Resident: JEFFREY FLOWER MD, DIE SINKING MACHINE OPERATOR /SADIA SNYDER [facility] Apr 23, 2024 06:[address] ABDOMEN/ PELVIS: FLACA WEAVER [id number] -1950 M Exm Date: APR 23, 2024@06:36 Req Phys: MCKAY VICTOR Pat Loc: 3K04-24-2024@10:25 [facility] Loc: OUTSOURCE CT Service: Unknown (Case [id number] COMPLETE) NON [place] CT ABDOMEN/PELVIS (CT Detailed) CPT:24627 Reason for Study: OUTSIDE STUDY Clinical History: OUTSIDE STUDY Report Status: Electronically Filed Date Reported: APR 24, 2024 Report: This is an outside Imaging study and/or report imported for continuity of patient care. This Imaging study and/or report was not reviewed or verified by a [place] Radiologist. Impression: This is an outside Imaging study and/or report imported for continuity of patient care. This Imaging study and/or report was not reviewed or verified by a [place] Radiologist. Primary Diagnostic Code: VERIFIED BY: / [...] comes from all [place] treatment facilities. Date/Time Pathology Report Provider Source Apr 21, 2024 07:28 AM LR MICROBIOLOGY RE PORT: Reporting Lab: [facility] [CLIA# [id number]] [place] [address] Accession [UID]: [id number] [[id number]] Received: Apr 21, 2024@08:16 Collection sample: URINE Collection date: Apr 21, 2024 07:28 Provider: ANANDA HUGGINS Comment on specimen: RECEIVED IN STERILE CUP Test(s) ordered: CULTURE & SUSCEPTIBILITY...... completed: Apr 22, 2024 * BACTERIOLOGY FINAL REPORT => Apr 22, 2024 08:38 TECH CODE: [id number] CULTURE RESULTS: NO GROWTH 24 HOURS Bacteriology Remark(s): THIS REPORT IS FINAL =--=--=--=--=--=--=--=--=--=--=--=- -=--=--=--=--=--=--=--=--=--=--=--= --=--=-- Performing Laboratory: Bacteriology Report Performed By: [facility] [CLIA# [id number]] [place] [address] [facility]
--- OUTSIDE RECORDS SUMMARY | 2024-05-04 01:06 | XMS_ITS ---
[place] DAILY HOSPITALIZATION DATA [facility] Encounter Summary Created on: May 03, 2024 FLACA WEAVER : 1950 Sex: Male Author Name [facility] [place] Address [address] [place] [address] Care Team Providers Care Unit Control Clerk Name Role Phone JATINDER BENITEZ Primary Care [...] PART A Sep 29, 2016 PART A [id number] [phone] JUDY WEAVER PATIENT Selected Encounter This section includes the information on record at [place] for the Encounter. Date/Time Encounter Type Encounter Description Reason Pro vider Source Apr 25, 2024 01:26 AM Inpatient Visit DAILY HOSPITALIZATION DATA [facility] Encounter Template Text not used by [place] Plan of Treatment: Future Appointments (+ 6 months) and Future Tests (+/- 45 days) The Plan of Treatment section includes future care activities for the patient from all [place] treatmentfacilities. This section includes future appointments and future orders which are active, pending or scheduled. Future Appointments This section includes appointments that were scheduled to occur 6 months from the date of the Encounter, up to a maximum of 20 appointments. The data comes from all [place] treatment facilities. Appointment Date/Time Appointment Type Appointme nt Facility Name Apr 27, 2024 02:30 PM AMBULATORY - NONE [facility] May 02, 2024 10:00 AM AMBULATORY - SURGERY [facility] May 04, 2024 09:00 AM [facility] May 07, 2024 08:45 AM [facility] May 08, 2024 02:00 PM [facility] May 09, 2024 07:30 AM [facility]BUL[facility]ORY - SURGERY [facility] May 15, 2024 08:30 [...] of theEncounter. The data comes from all [place] treatment facilities. Test Date/Time Test Type Test [...] and Hematology Lab Results on record with [place] for the patient. Radiology Reports and Pathology [...] 02:50 PM Reporting Lab: [facility] [address] Performing Lab: [facility] [address] CREATININE 0.7 mg/dL 0.7-1.2 UREA NITROGEN 15 [...] Lab: [facility] [address] Performing Lab: [facility] [address] CREATININE 0.7 mg/dL 0.7-1.2 UREA NITROGEN 15 [...] Lab: [facility] [address] Performing Lab: [facility] [address] CREATININE 0.7 mg/dL 0.7-1.2 UREA NITROGEN 14 [...] Lab: [facility] [address] Performing Lab: [facility] [address] CREATININE 0.7 mg/dL 0.7-1.2 UREA NITROGEN 16 [...] Critical Value Reported To: Cait Zamorano RN 04-24-24@08[facility]. Critical value report confirmed. Ordering Provider: AARON VICTOR Report Released Date/Time: Apr 23, 2024 05:30 PM Reporting Lab: [facility] [address] Performing Lab: [facility] [address] CREATININE 0.7 mg/dL 0.7-1.2 UREA NITROGEN 16 [...] Lab: [facility] [address] Performing Lab: [facility] [address] WBC 10.49 10*3/uL 4.0-11.0 RBC 3.83 10*6/uL [...] Lab: [facility] [address] Performing Lab: [facility] [address] LACTIC ACID 1.5 mmol/L 0.5-2.2 Apr 23, 2024 01:20 PM [facility] PROTHROMBIN TIME/INR Specimen Type: PLASMA No comment entered. Ordering Provider: AARON VICTOR Report Released Date/Time: Apr 23, 2024 12:05 PM Reporting Lab: [facility] [address] Performing Lab: [facility] [address] .INR 1.2 H 0.8-1.1 .PT 14.5 s H 9.4-12.5 Apr 23, 2024 01:20 PM [facility] ACT PART THROMBO TIME Specimen Type: PLASMA No comment entered. Ordering Provider: AARON VICTOR Report Released Date/Time: Apr 23, 2024 12:05 PM Reporting Lab: [facility] [address] Performing Lab: [facility] [address] APTT 29.3 s 25.1-36.5 Apr 23, 2024 01:20 PM [facility] COMPREHENSIVE METABOLIC PANEL+MG Specimen Type: PLASMA No comment entered. Ordering Provider: AARON VICTOR Report Released Date/Time: Apr 23, 2024 12:05 PM Reporting Lab: [facility] [address] Performing Lab: [facility] [address] CREATININE 0.7 mg/dL 0.7-1.2 UREA NITROGEN 19 [...] Lab: [facility] [address] Performing Lab: [facility] [address] WBC 12.50 10*3/uL H 4.0-11.0 RBC 4.07 [...] Lab: [facility] [address] Performing Lab: [facility] [address] URINE COLOR COLORLESS SPECIFIC GRAVITY 1.009 1.003-1.03 [...] Source Apr 25, 2024 08:51 PM 5 [facility] Apr 25, 2024 08:50 PM 5 [facility] Apr 25[facility] 2024 04:53 PM 6 [facility] Apr 25[facility] 2024 04:11 PM 6 [facility] Apr 25, 2024 11:59 AM 6 [facility] Social History: Smoking Status (Most current) and Tobacco Use (All prior to encounter date) This section includes the most current, and the historical, smoking and tobacco- related health factors from the [place] facility where the Encounter took place. Current Smoking Status This section includes the most current smoking, or tobacco-related health factor, from the [place] facility where the Encounter took place. 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 The data comes from the [place] facility where the Encounter took place. Date/Time [...] ALL of a patient's completed or amended [place] Advance and Rescinded Directives. The entries below indicate that a directive exists for the patient, but an actual copy is not included with this document. The data comes from all [place] facilities. Date Advance Directives Provider Source Mar 23, 2016 CLINICAL WARNING [facility] Radiology Reports: +/- 30 days of the [...] the Encounter. The data comes from all [place] treatment facilities. 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 Palmira Graves MD LAST CREATININE 0.7 (04/23/24) Report Status: Verified Date Reported: APR 24, 2024 Date Verified: APR 24, 2024 Site Physician E-Sig:/ES/SDAIA DEE MD Report: PROCEDURES: Placement of abscess [...] anesthesia. Using real-time CT fluoroscopy, a 5 Dutch Yueh catheter was advanced into the collection in the left lower quadrant. A wire was coiled in the collection. The tract into the collection was dilated to accommodate the 12 Dutch locking pigtail drainage catheter. The catheter was secured to the skin with monofilament suture and connected to JUAN bulb suction. Impression: Successful placement of a 12 Dutch locking pigtail drainage catheter in the left lower quadrant abscess. This catheter is connected to JUAN bulb suction with flushes, as ordered. I, SADIA DEE, have reviewed the images and report. Primary Interpreting Staff: SADIA DEE MD, RADIOLOGIST (Site Physician) Primary Interpreting Resident: JEFFREY FLOWER MD, SECURITY INCIDENT HANDLER /SADIA SNYDER [facility] Apr 24, 2024 02:[address] NEEDLE PLACEMEN T (P): FLACA WEAVER [id number] -1950 M Exm Date: APR 24, 2024@14:11 Req Phys: TAURUS WOOD Loc: 3KS/04-24-2024@16:07 [facility] Loc: CT IMAGING Service: PRIMARY [place] [address] (Case [id number] COMPLETE) CT SCAN FOR NEEDLE PLACEMENT (CT Detailed) CPT:15202 Reason for Study: diverticular abscess Clinical History: Report Status: Verified Date Reported: APR 24, 2024 Date Verified: APR 24, 2024 Site Physician E-Sig:/ES/SADIA DEE MD Report: PROCEDURES: Placement of [...] anesthesia. Using real-time CT fluoroscopy, a 5 Dutch Yueh catheter was advanced into the collection in the left lower quadrant. A wire was coiled in the collection. The tract into the collection was dilated to accommodate the 12 Dutch locking pigtail drainage catheter. The catheter was secured to the skin with monofilament suture and connected to JUAN bulb suction. Impression: Successful placement of a 12 Dutch locking pigtail drainage catheter in the left lower quadrant abscess. This catheter is connected to JUAN bulb suction with flushes, as ordered. I, SADIA DEE, have reviewed the images and report. Primary Interpreting Staff: SADIA DEE MD, RADIOLOGIST (Site Physician) Primary Interpreting Resident: JEFFREY FLOWER MD, SECURITY INCIDENT HANDLER /SADIA SNYDER [facility] Apr 23, 2024 06:[address] ABDOMEN/ PELVIS: FLACA WEAVER [id number] -1950 M Exm Date: APR 23, 2024@06:36 Req Phys: MCKAY VICTOR Pat Loc: 3K04-24-2024@10:25 [facility] Loc: OUTSOURCE CT Service: Unknown (Case [id number] COMPLETE) NON [place] CT ABDOMEN/PELVIS (CT Detailed) CPT:62984 Reason for Study: OUTSIDE STUDY Clinical History: OUTSIDE STUDY Report Status: Electronically Filed Date Reported: APR 24, 2024 Report: This is an outside Imaging study and/or report imported for continuity of patient care. This Imaging study and/or report was not reviewed or verified by a [place] Radiologist. Impression: This is an outside Imaging study and/or report imported for continuity of patient care. This Imaging study and/or report was not reviewed or verified by a [place] Radiologist. Primary Diagnostic Code: VERIFIED BY: / [...] the Encounter. The data comes from all [place] treatment facilities. Date/Time Pathology Report Provider Source Apr 21, 2024 07:28 AM LR MICROBIOLOGY RE PORT: Reporting Lab: [facility] [CLIA# [id number]] [place] [address] Accession [UID]: [id number] [[id number]] Received: Apr 21, 2024@08:16 Collection sample: URINE Collection date: Apr 21, 2024 07:28 Provider: ANANDA HUGGINS Comment on specimen: RECEIVED IN STERILE CUP Test(s) ordered: CULTURE & SUSCEPTIBILITY...... completed: Apr 22, 2024 * BACTERIOLOGY FINAL REPORT => Apr 22, 2024 08:38 TECH CODE: [id number] CULTURE RESULTS: NO GROWTH 24 HOURS Bacteriology Remark(s): THIS REPORT IS FINAL =--=--=--=--=--=--=--=--=--=--=--=- -=--=--=--=--=--=--=--=--=--=--=--= --=--=-- Performing Laboratory: Bacteriology Report Performed By: [facility] [CLIA# [id number]] [place] [address] [facility]
--- OUTSIDE RECORDS SUMMARY | 2024-05-04 01:06 | XMS_ITS | Encounter Summary ---
Author Name [facility] Organization [facility] Address [address] [place] [address] Care Team Providers Care Accounting Machine Servicer Name Role Phone JATINDER BENITEZ Primary Care [...] PART A Sep 29, 2016 PART A [id number] [phone] JUDY WEAVER PATIENT Selected Encounter This section includes the information on record at [place] for the Encounter. 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 This section includes future appointments and future orders which are active, pending or scheduled. Future Appointments This section includes appointments that were scheduled to occur 6 months from the date of the Encounter, up to a maximum of 20 appointments. The data comes from all [facility]. Appointment Date/Time Appointment Type Appointme nt Facility Name Apr 27, 2024 02:30 PM AMBULATORY - NONE [facility] May 02, 2024 10:00 AM AMBULATORY - SURGERY [facility] May 04, 2024 09:00 AM AMBULATORY - NONE [facility] May 07, 2024 08:45 AM AMBULATORY - MEDICINE [facility] May 08, 2024 02:00 PM AMBULATORY - NONE [facility] May 09, 2024 07:30 AM AMBULATORY - SURGERY [facility] May 15, 2024 08:[address] [facility] Active, Pending, and Scheduled Orders This section includes a listing of several types of active, pending, and scheduled orders, including clinic medications orders, diagnostic test orders, procedure orders and consult orders; where the start date of the order is 45 days before the date of the Encounter or 45 days after the date of theEncounter. The data comes from all [facility]. Test Date/Time Test Type Test Details Facility Name Apr 26, 2024 10:10 AM Laboratory - Microbiology Order GRAM STAIN WOUND OTHER WC ONCE ~For Test: GRAM STAIN ~JUAN drain culture/gram stain [facility] Apr 26, 2024 10:10 AM Laboratory - Microbiology Order CULTURE & SUSCEPTIBILITY WOUND OTHER WC ONCE ~For Test: CULTURE & SUSCEPTIBILITY ~Culture sample from JUAN drain output [facility] Apr 27, 2024 02:30 PM Imaging - Ultrasound Order US AORTA (P) [facility] May 04, 2024 12:00 AM Laboratory - Chemistry Order BASIC METABOLIC PANEL+MG PLASMA SP ONCE [facility] May 08, 2024 02:00 PM Imaging - CT Scan Order CT (AP) ABDOMEN/PELVIS (P) LISANDRO [facility] Lab Results: +/- 30 days of the encounter This section includes the Chemistry and Hematology Lab Results on record with [place] for the patient. Radiology Reports and Pathology Reports are provided separately, in subsequent sections. Lab Results This section contains the Chemistry/Hematology Results that were resulted 30 days before or 30 daysafter the date of the Encounter. Date/Time Source Result Type Result - Unit Interpretation Reference Range Comment Apr 26, 2024 07:16 AM [facility] BASIC METABOLIC PANEL+MG Specimen Type: PLASMA No comment entered. Ordering Provider: JONO RANDOLPH Report Released Date/Time: Apr 25, 2024 02:50 PM Reporting Lab: [facility] [id number] Performing Lab: [facility] [address] CREATININE 0.7 mg/dL 0.7-1.2 UREA NITROGEN 15 mg/dL 8-26 GLUCOSE 106 mg/dL H 70-100 SODIUM 139 mmol/L 136-145 POTASSIUM 3.4 mmol/L L 3.5-5.1 CHLORIDE 105 mmol/L 98-107 CO2 25 mmol/L 22-29 CALCIUM 8.5 mg/dL 8.4-10.2 MAGNESIUM 2.2 mg/dL 1.6-2.6 ANION GAP 9 mmol/L 5-15 .CREAT EGFR(CKD-EPI) >90 >60 Apr 25, 2024 05:10 PM [facility] BASIC METABOLIC PANEL+MG Specimen Type: PLASMA No comment entered. Ordering Provider: GIOVANNI ADLER Report Released Date/Time: Apr 25, 2024 05:04 PM Reporting Lab: [facility] [phone] Performing Lab: [facility] [address] CREATININE 0.7 mg/dL 0.7-1.2 UREA NITROGEN 15 mg/dL 8-26 GLUCOSE 104 mg/dL H 70-100 SODIUM 139 mmol/L 136-145 POTASSIUM 3.2 mmol/L L 3.5-5.1 CHLORIDE 103 mmol/L 98-107 CO2 28 mmol/L 22-29 CALCIUM 8.5 mg/dL 8.4-10.2 MAGNESIUM 2.2 mg/dL 1.6-2.6 ANION GAP 8 mmol/L 5-15 .CREAT EGFR(CKD-EPI) >90 >60 Apr 25, 2024 07:46 AM [facility] BASIC METABOLIC PANEL+MG Specimen Type: PLASMA No comment entered. Ordering Provider: GIOVANNI ADLER Report Released Date/Time: Apr 24, 2024 12:37 PM Reporting Lab: [facility] [phone] Performing Lab: [facility] [address] CREATININE 0.7 mg/dL 0.7-1.2 UREA NITROGEN 14 mg/dL 8-26 GLUCOSE 127 mg/dL H 70-100 SODIUM 139 mmol/L 136-145 POTASSIUM 2.9 mmol/L L 3.5-5.1 CHLORIDE 101 mmol/L 98-107 CO2 29 mmol/L 22-29 CALCIUM 8.7 mg/dL 8.4-10.2 MAGNESIUM 2.3 mg/dL 1.6-2.6 ANION GAP 9 mmol/L 5-15 .CREAT EGFR(CKD-EPI) >90 >60 Apr 24, 2024 04:42 PM [facility] BASIC METABOLIC PANEL+MG Specimen Type: PLASMA No comment entered. Ordering Provider: GIOVANNI ADLER Report Released Date/Time: Apr 24, 2024 12:37 PM Reporting Lab: [facility] [phone] Performing Lab: [facility] [address] CREATININE 0.7 mg/dL 0.7-1.2 UREA NITROGEN 16 mg/dL 8-26 GLUCOSE 97 mg/dL 70-100 SODIUM 138 mmol/L 136-145 POTASSIUM 2.7 mmol/L L 3.5-5.1 CHLORIDE 99 mmol/L 98-107 CO2 30 mmol/L H 22-29 CALCIUM 8.4 mg/dL 8.4-10.2 MAGNESIUM 2.1 mg/dL 1.6-2.6 ANION GAP 9 mmol/L 5-15 .CREAT EGFR(CKD-EPI) >90 >60 Apr 24, 2024 07:36 AM [facility] BASIC METABOLIC PANEL+MG Specimen Type: PLASMA Comment: Critical Value Reported To: Cait Zamorano RN 8-27-24@[address] [place] [address]. Critical value report confirmed. Ordering Provider: AARON VICTOR Report Released Date/Time: Apr 23, 2024 05:30 PM Reporting Lab: [facility] [address] Performing Lab: [facility] [address] CREATININE 0.7 mg/dL 0.7-1.2 UREA NITROGEN 16 mg/dL 8-26 GLUCOSE 105 mg/dL H 70-100 SODIUM 138 mmol/L 136-145 POTASSIUM 2.3 mmol/L LL 3.5-5.1 CHLORIDE 98 mmol/L 98-107 CO2 29 mmol/L 22-29 CALCIUM 8.3 mg/dL L 8.4-10.2 MAGNESIUM 2.2 mg/dL 1.6-2.6 ANION GAP 11 mmol/L 5-15 .CREAT EGFR(CKD-EPI) >90 >60 Apr 24, 2024 07:35 AM [facility] CBC & DIFF Specimen Type: BLOOD Comment: Automated Differential Performed Ordering Provider: AARON VICTOR Report Released Date/Time: Apr 23, 2024 05:30 PM Reporting Lab: [facility] [phone] Performing Lab: [facility] [address] WBC 10.49 10*3/uL 4.0-11.0 RBC 3.83 10*6/uL [...] 10*3/uL 0-0.1 Apr 23, 2024 01:20 PM [facility] LACTIC ACID Specimen Type: PLASMA No comment entered. Ordering Provider: AARON VICTOR Report Released Date/Time: Apr 23, 2024 12:05 PM Reporting Lab: [facility] [phone] Performing Lab: [facility] [address] LACTIC ACID 1.5 mmol/L 0.5-2.2 Apr 23, 2024 01:20 PM [facility] PROTHROMBIN TIME/INR Specimen Type: PLASMA No comment entered. Ordering Provider: AARON VICTOR Report Released Date/Time: Apr 23, 2024 12:05 PM Reporting Lab: [facility] [address] Performing Lab: [facility] [address] .INR 1.2 H 0.8-1.1 .PT 14.5 s H 9.4-12.5 Apr 23, 2024 01:20 PM [facility] COMPREHENSIVE METABOLIC PANEL+MG Specimen Type: PLASMA No comment entered. Ordering Provider: AARON VICTOR Report Released Date/Time: Apr 23, 2024 12:05 PM Reporting Lab: [facility] [address] Performing Lab: [facility] [address] CREATININE 0.7 mg/dL 0.7-1.2 UREA NITROGEN 19 [...] >90 >60 Apr 23, 2024 01:20 PM [facility] ACT PART THROMBO TIME Specimen Type: PLASMA No comment entered. Ordering Provider: AARON VICTOR Report Released Date/Time: Apr 23, 2024 12:05 PM Reporting Lab: [facility] [address] Performing Lab: [facility] [address] APTT 29.3 s 25.1-36.5 Apr 23, 2024 01:20 PM [facility] CBC & DIFF Specimen Type: BLOOD Comment: Automated Differential Performed Ordering Provider: AARON VICTOR Report Released Date/Time: Apr 23, 2024 12:05 PM Reporting Lab: [facility] [address] Performing Lab: [facility] [address] WBC 12.50 10*3/uL H 4.0-11.0 RBC 4.07 [...] 10*3/uL 0-0.1 Apr 21, 2024 07:28 AM [facility] URINALYSIS Specimen Type: URINE No comment entered. Ordering Provider: ANANDA HUGGINS Report Released Date/Time: Apr 21, 2024 07:37 AM Reporting Lab: [facility] [address] Performing Lab: [facility] [address] URINE COLOR COLORLESS SPECIFIC GRAVITY 1.009 1.003-1.03 [...] Source Apr 25, 2024 08:[address] [facility] Apr 25, 2024 08:[address] [facility] Apr 25, 2024 04:[address] [facility] Apr 25, 2024 04:[address] [facility] Apr 25, 2024 11:[address] [facility] Social History: [...] Mar 23, 2016 CLINICAL WARNING [facility] Radiology Reports: +/- 30 days of [...] the Encounter. The data comes from all [place] treatment facilities. Date/Time Radiology Report Provider Source Apr 24, 2024 02:13 PM ABSCESS DRAIN PLAC EMENT PERITONEAL (P): FLACA WEAVER [id number] -1950 M Exm Date: APR 24, 2024@14:13 Req Phys: TAURUS WOOD Loc: 3K04-24-2024@16:07 Img Loc: INTERVENTIONAL RADIOLOGY Service: PRIMARY [place]ARE [place] [address] (Case [id number] COMPLETE) IR PERITONEAL/RETROPERITONEAL PER(ANI Detailed) CPT:51146 Reason for Study: diverticular abscess Clinical History: [place] IS NOT under investigation for COVID-19 or is COVID-19 negative 73yo M with hx of recurrent diverticulitis, transferred from [facility] 04/[address] 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 Found to have 2nd degree heart block, planning pacemaker placement Contact number for responsible provider who can be reached for any questions or notifications of critical findings: [phone] If ordering provider is a trainee, enter the name and contact information of the responsible staff physician. Palmira Powell MD LAST CREATININE 0.7 (04/23/24) Report Status: Verified Date Reported: APR 24, 2024 Date Verified: APR 24, 2024 High School History Teacher E-Sig:/ES/SADIA DEE MD Report: PROCEDURES: Placement [...] anesthesia. Using real-time CT fluoroscopy, a 5 Icelandic Yueh catheter was advanced into the collection in the left lower quadrant. A wire was coiled in the collection. The tract into the collection was dilated to accommodate the 12 Icelandic locking pigtail drainage catheter. The catheter was secured to the skin with monofilament suture and connected to JUAN bulb suction. Impression: Successful placement of a 12 Icelandic locking pigtail drainage catheter in the left lower quadrant abscess. This catheter is connected to JUAN bulb suction with flushes, as ordered. I, SADIA DEE, have reviewed the images and report. Primary Interpreting Staff: SADIA DEE MD, RADIOLOGIST (High School History Teacher) Primary Interpreting Resident: JEFFREY FLOWER MD, AQUATIC BIOLOGIST /SADIA SNYDER [facility] Apr 24, 2024 02:[address] NEEDLE PLACEMEN T (P): FLACA WEAVER [id number] -1950 M Exm Date: APR 24, 2024@14:11 Req Phys: TAURUS WOOD Loc: 04-24-2024@16:07 Img Loc: CT IMAGING Service: PRIMARY [place] [address] (Case [id number] COMPLETE) CT SCAN FOR NEEDLE PLACEMENT (CT Detailed) CPT:06228 Reason for Study: diverticular abscess Clinical History: Report Status: Verified Date Reported: APR 24, 2024 Date Verified: APR 24, 2024 High School History Teacher E-Sig:/ES/SADIA DEE MD Report: PROCEDURES: Placement [...] anesthesia. Using real-time CT fluoroscopy, a 5 Icelandic TripsByTipseh catheter was advanced into the collection in the left lower quadrant. A wire was coiled in the collection. The tract into the collection was dilated to accommodate the 12 Icelandic locking pigtail drainage catheter. The catheter was secured to the skin with monofilament suture and connected to JUAN bulb suction. Impression: Successful placement of a 12 Icelandic locking pigtail drainage catheter in the left lower quadrant abscess. This catheter is connected to JUAN bulb suction with flushes, as ordered. I, SDAIA DEE, have reviewed the images and report. Primary Interpreting Staff: SADIA DEE MD, RADIOLOGIST (High School History Teacher) Primary Interpreting Resident: JEFFREY FLOWER MD, AQUATIC BIOLOGIST /SADIA SNYDER [facility] Apr 23, 2024 06:[address] ABDOMEN/ PELVIS: FLACA WEAVER [id number] -1950 M Exm Date: APR 23, 2024@06:36 Req Phys: FREDDYEMMAMCKAY Keith Pat Loc: 3K04-24-2024@10:25 Img Loc: OUTSOURCE CT Service: Unknown (Case [id number] COMPLETE) NON VA CT ABDOMEN/PELVIS (CT Detailed) CPT:03000 Reason for Study: OUTSIDE STUDY Clinical History: OUTSIDE STUDY Report Status: Electronically Filed Date Reported: APR 24, 2024 Report: This is an outside Imaging study and/or report imported for continuity of patient care. This Imaging study and/or report was not reviewed or verified by a [place] Radiologist. Impression: This is an outside Imaging study and/or report imported for continuity of patient care. This Imaging study and/or report was not reviewed or verified by a [place] Radiologist. Primary Diagnostic Code: VERIFIED BY: / *ELECTRONICALLY FILED* [facility] Pathology Reports: +/- 30 days [...] the Encounter. The data comes from all [place] treatment facilities. Date/Time Pathology Report Provider Source Apr 21, 2024 07:28 AM LR MICROBIOLOGY RE PORT: Reporting Lab: [facility] [CLIA# [id number]] [place] [address] Accession [UID]: [id number] [[id number]] Received: Apr 21, 2024@08:16 Collection sample: URINE Collection date: Apr 21, 2024 07:28 Provider: ANANDA HUGGINS Comment on specimen: RECEIVED IN STERILE CUP Test(s) ordered: CULTURE & SUSCEPTIBILITY...... completed: Apr 22, 2024 * BACTERIOLOGY FINAL REPORT => Apr 22, 2024 08:38 TECH CODE: [id number] CULTURE RESULTS: NO GROWTH 24 HOURS Bacteriology Remark(s): THIS REPORT IS FINAL =--=--=--=--=--=--=--=--=--=--=--=- -=--=--=--=--=--=--=--=--=--=--=--= --=--=-- Performing Laboratory: Bacteriology Report Performed By: [facility] [CLIA# [id number]] [address] [place] [address] [facility] Encounter Notes: All associated encounter notes This section contains the clinical notes associated to the Encounter. Date/Time Encounter Note(s) Provider Source Apr 25, 2024 03:02 PM ADDENDUM: LOCAL TITLE: Addendum STANDARD TITLE: ADDENDUM DATE OF NOTE: APR 25, 2024@15:02:01 ENTRY DATE: APR 25, 2024@15:02:03 AUTHOR: PALMIRA POWELL COSIGNER: URGENCY: STATUS: COMPLETED Please see RTC MSP C/R FOLLOW-UP order for next week. /alexi/ PALMIRA POWELL MD STAFF SURGEON, COLON/RECTAL Signed: 04/25/2024 15:02 Receipt Acknowledged By: * AWAITING SIGNATURE * SERGEY RIOS 04/25/2024 15:29 /es/ RAMIRO CHRISTIANSON, RN, PHN General Surgery/Colorectal Coordinator --- Original Document --- 08/28/24 COLON-RECTAL INPT PROGRESS NOTE: INPATIENT PROGRESS NOTE Subjective: Patient extremtly frustrated about the cares he has received here. Drain with minimal output and was flushed by RN yesterday (as is protocol for non-draining drains), and immediately patient had feculent output from Mathew catheter. Patient planning to talk with patient advocacy and finger cobbler today. Pain controlled, ROS otherwise negative, tolerating regular diet. Objective: General: Awake, Alert, Oriented X3, No apparent distress HEENT: extra ocular movement intact, no scleral icterus Cardio: RRR, extremities warm and well perfused Lungs: No respiratory distress on RA Abd: Soft, non-tender, mild distension, no skin changes, no guarding. Extrem: No visible deformity Neuro: No focal deficits Other: Mathew in place with feculent output. IR drian in place with minimal serous output. Active Medications: Active Inpatient Medications (including Supplies): [...] TOTAL 0.7 (04/23/24) Imaging No new imaging to review. Assessment/Plan: 73 Y M admitted with PMH diverticulitis over the past 8 years, HTN, JUANJOSE, CAD, AAA, 2nd deg Heart block presented to ED w diverticulitis with colovesical fistula and adjacent abscess; confirmed on CT AP w IV. Abdomen remains non peritonitic. Vitals and labs remain stable with pt on abx. Patient tolerating regular diet. No acute surgical intervention indicated at this time. IR drain remains in place, Mathew in place with feculent output. Will arrange for outpatient follow-up with CRS. Plan: - Regular diet - May transition to PO antibiotics - Continue mathew for feculent output. Recommend keeping Mathew in place until outpt clinic appt with CRS - Drain management per IR - No acute surgical intervention indicated at this time. Will arrange for outpatient follow-up appointment in 2-3 weeks time, at that point will discuss sigmoidectomy. - Defer remainder of cares to medicine team - Encouraged patient to talk with patient advocacy today to address his concerns with cares - Colorectal surgery will continue to follow. Page if questions/concerns. This patient was seen and examined with chief resident, discussed with staff surgeon. Logan Sood MD General Surgery, PGY2 /es/ Logan Sood MD Resident, Gen Surg Signed: 04/25/2024 09:51 Receipt Acknowledged By: * AWAITING SIGNATURE * SERGEY RIOS 04/25/2024 15:02 /alexi/ PALMIRA POWELL MD STAFF SURGEON, COLON/RECTAL 04/25/2024 ADDENDUM STATUS: COMPLETED Pt seen on rounds and agree with assessment and plan. If patient is discharged within next 1-2 days, will have patient follow-up with me next week with repeat CT scan. Total time: 25min /alexi/ PALMIRA POWELL MD STAFF SURGEON, COLON/RECTAL Signed: 04/25/2024 15:01 PALMIRA POWELL [facility] Apr 25, 2024 09:43 AM COLON & RECTAL ELISA BRAEDEN NOTE: LOCAL TITLE: COLON-RECTAL INPT PROGRESS NOTE STANDARD TITLE: COLON & RECTAL SURGERY NOTE DATE OF NOTE: APR 25, 2024@09:43 ENTRY DATE: APR 25, 2024@09:43:53 AUTHOR: LOGNA SOODER: URGENCY: STATUS: COMPLETED COLON-RECTAL INPT PROGRESS NOTE Has ADDENDA INPATIENT PROGRESS NOTE Subjective: Patient extremtly frustrated about the cares he has received here. Drain with minimal output and was flushed by RN yesterday (as is protocol for non-draining drains), and immediately patient had feculent output from Mathew catheter. Patient planning to talk with patient advocacy and finger cobbler today. Pain controlled, ROS otherwise negative, tolerating regular diet. Objective: General: Awake, Alert, Oriented X3, No apparent distress HEENT: extra ocular movement intact, no scleral icterus Cardio: RRR, extremities warm and well perfused Lungs: No respiratory distress on RA Abd: Soft, non-tender, mild distension, no skin changes, no guarding. Extrem: No visible deformity Neuro: No focal deficits Other: Mathew in place with feculent output. IR drian in place with minimal serous output. Active Medications: Active Inpatient Medications (including Supplies): [...] TOTAL 0.7 (04/23/24) Imaging No new imaging to review. Assessment/Plan: 73 Y M admitted with PMH diverticulitis over the past 8 years, HTN, JUANJOSE, CAD, AAA, 2nd deg Heart block presented to ED w diverticulitis with colovesical fistula and adjacent abscess; confirmed on CT AP w IV. Abdomen remains non peritonitic. Vitals and labs remain stable with pt on abx. Patient tolerating regular diet. No acute surgical intervention indicated at this time. IR drain remains in place, Mathew in place with feculent output. Will arrange for outpatient follow-up with CRS. Plan: - Regular diet - May transition to PO antibiotics - Continue mathew for feculent output. Recommend keeping Mathew in place until outpt clinic appt with CRS - Drain management per IR - No acute surgical intervention indicated at this time. Will arrange for outpatient follow-up appointment in 2-3 weeks time, at that point will discuss sigmoidectomy. - Defer remainder of cares to medicine team - Encouraged patient to talk with patient advocacy today to address his concerns with cares - Colorectal surgery will continue to follow. Page if questions/concerns. This patient was seen and examined with chief resident, discussed with staff surgeon. Logan Sood MD General Surgery, PGY2 /es/ Logan Sood MD Resident, Gen Surg Signed: 04/25/2024 09:51 Receipt Acknowledged By: * AWAITING SIGNATURE * SERGEY RIOS 04/25/2024 15:02 /es/ PALMIRA POWELL MD STAFF SURGEON, COLON/RECTAL 04/25/2024 ADDENDUM STATUS: COMPLETED Pt seen on rounds and agree with assessment and plan. If patient is discharged within next 1-2 days, will have patient follow-up with me next week with repeat CT scan. Total time: 25min /alexi/ PALMIRA POWELL MD STAFF SURGEON, COLON/RECTAL Signed: 04/25/2024 15:01 04/25/2024 ADDENDUM STATUS: COMPLETED Please see RTC MSP C/R FOLLOW-UP order for next week. /jerome POWELL MD STAFF SURGEON, COLON/RECTAL Signed: 04/25/2024 15:02 Receipt Acknowledged By: * AWAITING SIGNATURE * SERGEY RIOS * AWAITING SIGNATURE * RAMIRO FABIAN EILEEN KATHRYN [facility]
--- OUTSIDE RECORDS SUMMARY | 2024-05-04 01:07 | XMS_ITS ---
[place] DAILY HOSPITALIZATION DATA [facility]CS Encounter Summary Created on: May 03, 2024 FLACA WEAVER : 1950 Sex: Male Author Name [facility] [place] Organization [facility] [place] Address [address] [place] [address] Care Team Providers Care Instrument Maintenance Supervisor Name Role Phone JATINDER BENITEZ Primary Care [...] PART A Sep 29, 2016 PART A [id number] [phone] JUDY WEAVER PATIENT Selected Encounter This section includes the information on record at NE for the Encounter. Date/Time Encounter Type Encounter Description Reason Pro vider Source Apr 25, 2024 07:23 PM Inpatient Visit DAILY HOSPITALIZATION [...] 02:30 PM AMBULATORY - NONE [facility] May 02, 2024 10:00 AM AMBULATORY [facility] SURGERY [facility] May 04, 2024 09:00 AM [facility] May 07, 2024 08:45 AM AMBULATORY - MEDICINE [facility] May 08, 2024 02:00 PM [facility] May 09, 2024 07:30 AM AMBULATORY - SURGERY [facility] May 15, 2024 08:30 AM AMBULATORY [...] Test: GRAM STAIN ~JUAN drain culture/gram stain [facility] Apr 26, 2024 10:10 AM Laboratory - Microbiology Order CULTURE & SUSCEPTIBILITY WOUND OTHER WC ONCE ~For Test: CULTURE & SUSCEPTIBILITY ~Culture sample from JUAN drain output [facility] Apr 27, 2024 02:30 PM Imaging - Ultrasound Order US AORTA (P) [facility] May 04, 2024 12:00 AM Laboratory - Chemistry Order BASIC METABOLIC PANEL+MG PLASMA SP ONCE [facility] May 08, 2024 02:00 PM Imaging - CT Scan Order CT (AP) ABDOMEN/PELVIS (P) LISANDRO [facility] Lab Results: +/- 30 days [...] Range Comment Apr 26, 2024 07:16 AM [facility] BASIC METABOLIC PANEL+MG Specimen Type: PLASMA No comment entered. Ordering Provider: JONO RANDOLPH Report Released Date/Time: Apr 25, 2024 02:50 PM Reporting Lab: [facility] [phone] Performing Lab: [facility] [phone] CREATININE 0.7 mg/dL 0.7-1.2 UREA NITROGEN 15 mg/dL 8-26 GLUCOSE 106 mg/dL H 70-100 SODIUM 139 mmol/L 136-145 POTASSIUM 3.4 mmol/L L 3.5-5.1 CHLORIDE 105 mmol/L 98-107 CO2 25 mmol/L 22-29 CALCIUM 8.5 mg/dL 8.4-10.2 MAGNESIUM 2.2 mg/dL 1.6-2.6 ANION GAP 9 mmol/L 5-15 .CREAT EGFR(CKD-EPI) >90 >60 Apr 25, 2024 05:10 PM [facility] BASIC METABOLIC PANEL+MG Specimen Type: PLASMA No comment entered. Ordering Provider: GIOVANNI ADLER Report Released Date/Time: Apr 25, 2024 05:04 PM Reporting Lab: [facility] [phone] Performing Lab: [facility] [address] CREATININE 0.7 mg/dL 0.7-1.2 UREA NITROGEN 15 mg/dL 8-26 GLUCOSE 104 mg/dL H 70-100 SODIUM 139 mmol/L 136-145 POTASSIUM 3.2 mmol/L L 3.5-5.1 CHLORIDE 103 mmol/L 98-107 CO2 28 mmol/L 22-29 CALCIUM 8.5 mg/dL 8.4-10.2 MAGNESIUM 2.2 mg/dL 1.6-2.6 ANION GAP 8 mmol/L 5-15 .CREAT EGFR(CKD-EPI) >90 >60 Apr 25, 2024 07:46 AM [facility] BASIC METABOLIC PANEL+MG Specimen Type: PLASMA No comment entered. Ordering Provider: GIOVANNI ADLER Report Released Date/Time: Apr 24, 2024 12:37 PM Reporting Lab: [facility] [phone] Performing Lab: [facility] [phone] CREATININE 0.7 mg/dL 0.7-1.2 UREA NITROGEN 14 mg/dL 8-26 GLUCOSE 127 mg/dL H 70-100 SODIUM 139 mmol/L 136-145 POTASSIUM 2.9 mmol/L L 3.5-5.1 CHLORIDE 101 mmol/L 98-107 CO2 29 mmol/L 22-29 CALCIUM 8.7 mg/dL 8.4-10.2 MAGNESIUM 2.3 mg/dL 1.6-2.6 ANION GAP 9 mmol/L 5-15 .CREAT EGFR(CKD-EPI) >90 >60 Apr 24, 2024 04:42 PM [facility] BASIC METABOLIC PANEL+MG Specimen Type: PLASMA No comment entered. Ordering Provider: GIOVANNI ADLER Report Released Date/Time: Apr 24, 2024 12:37 PM Reporting Lab: [facility] [phone] Performing Lab: [facility] [phone] CREATININE 0.7 mg/dL 0.7-1.2 UREA NITROGEN 16 mg/dL 8-26 GLUCOSE 97 mg/dL 70-100 SODIUM 138 mmol/L 136-145 POTASSIUM 2.7 mmol/L L 3.5-5.1 CHLORIDE 99 mmol/L 98-107 CO2 30 mmol/L H 22-29 CALCIUM 8.4 mg/dL 8.4-10.2 MAGNESIUM 2.1 mg/dL 1.6-2.6 ANION GAP 9 mmol/L 5-15 .CREAT EGFR(CKD-EPI) >90 >60 Apr 24, 2024 07:36 AM [facility] BASIC METABOLIC PANEL+MG Specimen Type: PLASMA Comment: Critical Value Reported To: Cait Zamorano RN 04-24-24@08[facility]. Critical value report confirmed. Ordering Provider: AARON VICTOR Report Released Date/Time: Apr 23, 2024 05:30 PM Reporting Lab: [facility] [phone] Performing Lab: [facility] [address] CREATININE 0.7 mg/dL 0.7-1.2 UREA NITROGEN 16 mg/dL 8-26 GLUCOSE 105 mg/dL H 70-100 SODIUM 138 mmol/L 136-145 POTASSIUM 2.3 mmol/L LL 3.5-5.1 CHLORIDE 98 mmol/L 98-107 CO2 29 mmol/L 22-29 CALCIUM 8.3 mg/dL L 8.4-10.2 MAGNESIUM 2.2 mg/dL 1.6-2.6 ANION GAP 11 mmol/L 5-15 .CREAT EGFR(CKD-EPI) >90 >60 Apr 24, 2024 07:35 AM [facility] CBC & DIFF Specimen Type: BLOOD Comment: Automated Differential Performed Ordering Provider: AARON VICTOR Report Released Date/Time: Apr 23, 2024 05:30 PM Reporting Lab: [facility] [phone] Performing Lab: [facility] [address] WBC 10.49 10*3/uL 4.0-11.0 RBC 3.83 10*6/uL [...] 10*3/uL 0-0.1 Apr 23, 2024 01:20 PM [facility] LACTIC ACID Specimen Type: PLASMA No comment entered. Ordering Provider: AARON VICTOR Report Released Date/Time: Apr 23, 2024 12:05 PM Reporting Lab: [facility] [phone] Performing Lab: [facility] [address] LACTIC ACID 1.5 mmol/L 0.5-2.2 Apr 23, 2024 01:20 PM [facility] ACT PART THROMBO TIME Specimen Type: PLASMA No comment entered. Ordering Provider: AARON VICTOR Report Released Date/Time: Apr 23, 2024 12:05 PM Reporting Lab: [facility] [address] Performing Lab: [facility] [address] APTT 29.3 s 25.1-36.5 Apr 23, 2024 01:20 PM [facility] PROTHROMBIN TIME/INR Specimen Type: PLASMA No comment entered. Ordering Provider: AARON VICTOR Report Released Date/Time: Apr 23, 2024 12:05 PM Reporting Lab: [facility] [address] Performing Lab: [facility] [address] .INR 1.2 H 0.8-1.1 .PT 14.5 s H 9.4-12.5 Apr 23, 2024 01:20 PM [facility] COMPREHENSIVE METABOLIC PANEL+MG Specimen Type: PLASMA No comment entered. Ordering Provider: AARON VICTOR Report Released Date/Time: Apr 23, 2024 12:05 PM Reporting Lab: [facility] [phone] Performing Lab: [facility] [address] CREATININE 0.7 mg/dL 0.7-1.2 UREA NITROGEN 19 [...] >90 >60 Apr 23, 2024 01:20 PM [facility] CBC & DIFF Specimen Type: BLOOD Comment: Automated Differential Performed Ordering Provider: AARON VICTOR Report Released Date/Time: Apr 23, 2024 12:05 PM Reporting Lab: [facility] [address] Performing Lab: [facility] [address] WBC 12.50 10*3/uL H 4.0-11.0 RBC 4.07 [...] 10*3/uL 0-0.1 Apr 21, 2024 07:28 AM [facility] URINALYSIS Specimen Type: URINE No comment entered. Ordering Provider: ANANDA HUGGINS Report Released Date/Time: Apr 21, 2024 07:37 AM Reporting Lab: [facility] [phone] Performing Lab: [facility] [address] URINE COLOR COLORLESS SPECIFIC GRAVITY 1.009 1.003-1.03 [...] 08:51 PM 5 [facility] Apr 25, 2024 08:50 PM 5 [facility] Apr 25, 2024 04:53 PM 6 [facility] Apr 25, 2024 04:11 PM 6 [facility] Apr 25, 2024 11:59 AM 6 [facility] Social History: Smoking Status (Most current) [...] 06, 2023 11:30 AM VA-TOBACCO FORMER USER [facility] Tobacco Use History This section includes a history of the smoking, or tobacco-related health factors, that were collected on or before the date of the Encounter. The data comes from the [place] facility where the Encounter took place. Date/Time Smoking Status/Tobacco Use Comment F acility May 06, 2023 11:30 AM VA-TOBACCO QUIT 15 YRS OR MORE [facility] Jun 04, 2022 09:00 AM VA-TOBACCO FORMER USER [facility] Jun 04, 2022 09:00 AM VA-TOBACCO QUIT 15 YRS OR MORE [facility] Jul 10, 2021 08:00 AM VA-TOBACCO FORMER USER [facility] Jul 10, 2021 08:00 AM VA-TOBACCO QUIT 5 TO < 15 YRS [facility] May 23, 2020 08:30 AM VA-TOBACCO FORMER USER [facility] May 23, 2020 08:30 AM VA-TOBACCO QUIT 5 TO < 15 YRS [facility] Mar 20, 2019 04:03 PM VA-TOBACCO FORMER USER [facility] Mar 20, 2019 04:03 PM VA-TOBACCO QUIT 5 TO < 15 YRS [facility] Mar 21, 2018 08:13 AM FORMER TOBACCO USER 7Y OR GREATE R [facility] Feb 24, 2017 09:24 AM FORMER TOBACCO USER 7Y OR GREATE R [facility] January 07, 2016 08:01 AM FORMER TOBACCO USE >1Y <7Y [facility] Feb 03, 2015 07:58 AM FORMER TOBACCO USE <1Y [facility] Feb 26, 2014 08:41 AM CURRENT TOBACCO USER [facility] May 13, 2011 01:45 PM CURRENT TOBACCO USER [facility] Advance Directives: All historical and current Section Date Range: From patient's date of to the date document was created. This section includes ALL of a patient's completed or amended [place] Advance and Rescinded Directives. The entries below indicate that a directive exists for the patient, but an actual copy is not included with this document. The data comes from all [place] facilities. Date Advance Directives Provider Source Mar 23, 2016 CLINICAL WARNING [facility] Radiology Reports: +/- 30 days of [...] DRAIN PLAC EMENT PERITONEAL (P): FLACA WEAVER [id number] -1950 M Exm Date: APR 24, 2024@14:13 Req Phys: TAURUS WOOD Loc: 04-24-2024@16:07 Img Loc: INTERVENTIONAL RADIOLOGY Service: PRIMARY [place] [address] (Case [id number] COMPLETE) IR PERITONEAL/RETROPERITONEAL PER(ANI Detailed) CPT:48946 Reason for Study: diverticular abscess Clinical History: [place] IS NOT under investigation for COVID-19 or is COVID-19 negative 73yo M with hx of recurrent diverticulitis, transferred from OSH 04/[address] 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 Palmira Graves MD LAST CREATININE 0.7 (04/23/24) Report Status: Verified Date Reported: APR 24, 2024 Date Verified: APR 24, 2024 Business Performance Specialist E-Sig:/ES/SADIA DEE MD Report: PROCEDURES: Placement of [...] anesthesia. Using real-time CT fluoroscopy, a 5 Bangladeshi Yueh catheter was advanced into the collection in the left lower quadrant. A wire was coiled in the collection. The tract into the collection was dilated to accommodate the 12 Bangladeshi locking pigtail drainage catheter. The catheter was secured to the skin with monofilament suture and connected to JUAN bulb suction. Impression: Successful placement of a 12 Bangladeshi locking pigtail drainage catheter in the left lower quadrant abscess. This catheter is connected to JUAN bulb suction with flushes, as ordered. I, SADIA DEE, have reviewed the images and report. Primary Interpreting Staff: SADIA DEE MD, RADIOLOGIST (Business Performance Specialist) Primary Interpreting Resident: JEFFREY FLOWER MD, DOCUMENTATION IMPROVEMENT SPECIALIST /SADIA SNYDER [facility] Apr 24, 2024 02:[address] NEEDLE PLACEMEN T (P): FLACA WEAVER [id number] -1950 M Exm Date: APR 24, 2024@14:11 Req Phys: TAURUS WOOD Loc: 3KS/04-24-2024@16:07 [facility] Loc: CT IMAGING Service: PRIMARY [place] [address] (Case [id number] COMPLETE) CT SCAN FOR NEEDLE PLACEMENT (CT Detailed) CPT:31183 Reason for Study: diverticular abscess Clinical History: Report Status: Verified Date Reported: APR 24, 2024 Date Verified: APR 24, 2024 Business Performance Specialist E-Sig:/ES/SADIA DEE MD Report: PROCEDURES: Placement of [...] anesthesia. Using real-time CT fluoroscopy, a 5 Bangladeshi Yueh catheter was advanced into the collection in the left lower quadrant. A wire was coiled in the collection. The tract into the collection was dilated to accommodate the 12 Bangladeshi locking pigtail drainage catheter. The catheter was secured to the skin with monofilament suture and connected to JUAN bulb suction. Impression: Successful placement of a 12 Bangladeshi locking pigtail drainage catheter in the left lower quadrant abscess. This catheter is connected to JUAN bulb suction with flushes, as ordered. I, SADIA DEE, have reviewed the images and report. Primary Interpreting Staff: SADIA DEE MD, RADIOLOGIST (Business Performance Specialist) Primary Interpreting Resident: JEFFREY FLOWER MD, DOCUMENTATION IMPROVEMENT SPECIALIST /SADIA SNYDER [facility] Apr 23, 2024 06:[address] ABDOMEN/ PELVIS: FLACA WEAVER [id number] -1950 M Exm Date: APR 23, 2024@06:36 Req Phys: MCKAY VICTOR Pat Loc: 3K04-24-2024@10:25 [facility] Loc: OUTSOURCE CT Service: Unknown (Case [id number] COMPLETE) NON NE CT ABDOMEN/PELVIS (CT Detailed) CPT:60612 Reason for Study: OUTSIDE STUDY Clinical History: [...] Diagnostic Code: VERIFIED BY: / *ELECTRONICALLY FILED* [facility] Pathology Reports: +/- 30 days [...] AM LR MICROBIOLOGY RE PORT: Reporting Lab: [facility] [CLIA# [id number]] [place] [address] Accession [UID]: [id number] [[id number]] Received: Apr 21, 2024@08:16 Collection sample: URINE Collection date: Apr 21, 2024 07:28 Provider: ANANDA HUGGINS Comment on specimen: RECEIVED IN STERILE CUP Test(s) ordered: CULTURE & SUSCEPTIBILITY...... completed: Apr 22, 2024 * BACTERIOLOGY FINAL REPORT => Apr 22, 2024 08:38 TECH CODE: [id number] CULTURE RESULTS: NO GROWTH 24 HOURS Bacteriology Remark(s): THIS REPORT IS FINAL =--=--=--=--=--=--=--=--=--=--=--=- -=--=--=--=--=--=--=--=--=--=--=--= --=--=-- Performing Laboratory: Bacteriology Report Performed By: [facility] [CLIA# [id number]] [place] [address] [facility]
--- OUTSIDE RECORDS SUMMARY | 2024-05-04 01:07 | XMS_ITS ---
[place] DAILY HOSPITALIZATION DATA [facility] Encounter Summary Created on: May 03, 2024 FLACA WEAVER : 1950 Sex: Male Author Name [facility] [place] [facility] [place] [facility] [place] Address [address] [place] [address] Care Team Providers Care Prosthetic Dentist Name Role Phone JATINDER BENITEZ Primary Care [...] PART A Sep 29, 2016 PART A [id number] [phone] JUDY WEAVER PATIENT Selected Encounter This section includes the information on record at [place] for the Encounter. Date/Time Encounter Type Encounter Description Reason Pro vider Source Apr 26, 2024 03:46 AM Inpatient Visit DAILY HOSPITALIZATION DATA [facility] Encounter Template Text not used by [place] [...] 20 appointments. The data comes from all [place] treatment facilities. Appointment Date/Time Appointment Type Appointme nt Facility Name Apr 27, 2024 02:30 PM AMBULATORY - NONE [facility] May 02, 2024 10:00 AM AMB[facility]ORY [facility] SURGERY [facility] May 04, 2024 09:00 AM [facility] NONE [facility] May 07, 2024 08:45 AM [facility]BULATORY [facility] MEDICINE [facility] May 08, 2024 02:00 PM [facility] May 09, 2024 07:30 AM [facility] May 15, 2024 08:30 AM AMBULATORY - MEDICINE [facility] Active, Pending, and Scheduled Orders This section includes a listing of several types of active, pending, and scheduled orders, including clinic medications orders, diagnostic test orders, procedure orders and consult orders; where the start date of the order is 45 days before the date of the Encounter or 45 days after the date of theEncounter. The data comes from all [place] treatment facilities. Test Date/Time Test Type Test Details Facility Name Apr 26, 2024 10:10 AM Laboratory - Microbiology Order CULTURE & SUSCEPTIBILITY WOUND OTHER WC ONCE ~For Test: CULTURE & SUSCEPTIBILITY ~Culture sample from JUAN drain output [facility] Apr 26, 2024 10:10 AM Laboratory - Microbiology Order GRAM STAIN WOUND OTHER WC ONCE ~For Test: GRAM STAIN ~JUAN drain culture/gram stain [facility] Apr 27, 2024 02:30 PM Imaging - Ultrasound Order US AORTA (P) [facility] May 04, 2024 12:00 AM Laboratory - Chemistry Order BASIC METABOLIC PANEL+MG PLASMA SP ONCE [facility] May 08, 2024 02:00 PM Imaging - CT Scan Order CT (AP) ABDOMEN/PELVIS (P) LISANDRO [facility] Lab Results: +/- 30 [...] Comment Apr 26, 2024 07:[address] [facility] BASIC METABOLIC PANEL+MG Specimen Type: PLASMA No comment entered. Ordering Provider: JONO RANDOLPH Report Released Date/Time: Apr 25, 2024 02:50 PM Reporting Lab: [facility] [address] Performing Lab: [facility] [phone] CREATININE 0.7 mg/dL 0.7-1.2 UREA NITROGEN 15 mg/dL 8-26 GLUCOSE 106 mg/dL H 70-100 SODIUM 139 mmol/L 136-145 POTASSIUM 3.4 mmol/L L 3.5-5.1 CHLORIDE 105 mmol/L 98-107 CO2 25 mmol/L 22-29 CALCIUM 8.5 mg/dL 8.4-10.2 MAGNESIUM 2.2 mg/dL 1.6-2.6 ANION GAP 9 mmol/L 5-15 .CREAT EGFR(CKD-EPI) >90 >60 Apr 25, 2024 05:[address] [facility] BASIC METABOLIC PANEL+MG Specimen Type: PLASMA No comment entered. Ordering Provider: GIOVANNI ADLER Report Released Date/Time: Apr 25, 2024 05:04 PM Reporting Lab: [facility] [phone] Performing Lab: [facility] [phone] CREATININE 0.7 mg/dL 0.7-1.2 UREA NITROGEN 15 mg/dL 8-26 GLUCOSE 104 mg/dL H 70-100 SODIUM 139 mmol/L 136-145 POTASSIUM 3.2 mmol/L L 3.5-5.1 CHLORIDE 103 mmol/L 98-107 CO2 28 mmol/L 22-29 CALCIUM 8.5 mg/dL 8.4-10.2 MAGNESIUM 2.2 mg/dL 1.6-2.6 ANION GAP 8 mmol/L 5-15 .CREAT EGFR(CKD-EPI) >90 >60 Apr 25, 2024 07:[address] [facility] BASIC METABOLIC PANEL+MG Specimen Type: PLASMA No comment entered. Ordering Provider: GIOVANNI ADLER Report Released Date/Time: Apr 24, 2024 12:37 PM Reporting Lab: [facility] [phone] Performing Lab: [facility] [phone] CREATININE 0.7 mg/dL 0.7-1.2 UREA NITROGEN 14 mg/dL 8-26 GLUCOSE 127 mg/dL H 70-100 SODIUM 139 mmol/L 136-145 POTASSIUM 2.9 mmol/L L 3.5-5.1 CHLORIDE 101 mmol/L 98-107 CO2 29 mmol/L 22-29 CALCIUM 8.7 mg/dL 8.4-10.2 MAGNESIUM 2.3 mg/dL 1.6-2.6 ANION GAP 9 mmol/L 5-15 .CREAT EGFR(CKD-EPI) >90 >60 Apr 24, 2024 04:[address] [facility] BASIC METABOLIC PANEL+MG Specimen Type: PLASMA No comment entered. Ordering Provider: GIOVANNI ADLER Report Released Date/Time: Apr 24, 2024 12:37 PM Reporting Lab: [facility] [phone] Performing Lab: [facility] [phone] CREATININE 0.7 mg/dL 0.7-1.2 UREA NITROGEN 16 mg/dL 8-26 GLUCOSE 97 mg/dL 70-100 SODIUM 138 mmol/L 136-145 POTASSIUM 2.7 mmol/L L 3.5-5.1 CHLORIDE 99 mmol/L 98-107 CO2 30 mmol/L H 22-29 CALCIUM 8.4 mg/dL 8.4-10.2 MAGNESIUM 2.1 mg/dL 1.6-2.6 ANION GAP 9 mmol/L 5-15 .CREAT EGFR(CKD-EPI) >90 >60 Apr 24, 2024 07:[address] [facility] BASIC METABOLIC PANEL+MG Specimen Type: PLASMA Comment: Critical Value Reported To: Cait Zamorano RN 04-24-24@08[facility]. Critical value report confirmed. Ordering Provider: AARON VICTOR Report Released Date/Time: Apr 23, 2024 05:30 PM Reporting Lab: [facility] [phone] Performing Lab: [facility] [phone] CREATININE 0.7 mg/dL 0.7-1.2 UREA NITROGEN 16 mg/dL 8-26 GLUCOSE 105 mg/dL H 70-100 SODIUM 138 mmol/L 136-145 POTASSIUM 2.3 mmol/L LL 3.5-5.1 CHLORIDE 98 mmol/L 98-107 CO2 29 mmol/L 22-29 CALCIUM 8.3 mg/dL L 8.4-10.2 MAGNESIUM 2.2 mg/dL 1.6-2.6 ANION GAP 11 mmol/L 5-15 .CREAT EGFR(CKD-EPI) >90 >60 Apr 24, 2024 07:[address] [facility] CBC & DIFF Specimen Type: BLOOD Comment: Automated Differential Performed Ordering Provider: AARON VICTOR Report Released Date/Time: Apr 23, 2024 05:30 PM Reporting Lab: [facility] [phone] Performing Lab: [facility] [address] WBC 10.49 10*3/uL 4.0-11.0 RBC 3.83 10*6/uL [...] 0-0.1 Apr 23, 2024 01:[address] [facility] LACTIC ACID Specimen Type: PLASMA No comment entered. Ordering Provider: AARON VICTOR Report Released Date/Time: Apr 23, 2024 12:05 PM Reporting Lab: [facility] [address] Performing Lab: [facility] [address] LACTIC ACID 1.5 mmol/L 0.5-2.2 Apr 23, 2024 01:[address] [facility] ACT PART THROMBO TIME Specimen Type: PLASMA No comment entered. Ordering Provider: AARON VICTOR Report Released Date/Time: Apr 23, 2024 12:05 PM Reporting Lab: [facility] [address] Performing Lab: [facility] [address] APTT 29.3 s 25.1-36.5 Apr 23, 2024 01:[address] [facility] PROTHROMBIN TIME/INR Specimen Type: PLASMA No comment entered. Ordering Provider: AARON VICTOR Report Released Date/Time: Apr 23, 2024 12:05 PM Reporting Lab: [facility] [address] Performing Lab: [facility] [address] .INR 1.2 H 0.8-1.1 .PT 14.5 s H 9.4-12.5 Apr 23, 2024 01:[address] [facility] COMPREHENSIVE METABOLIC PANEL+MG Specimen Type: PLASMA No comment entered. Ordering Provider: AARON VICTOR Report Released Date/Time: Apr 23, 2024 12:05 PM Reporting Lab: [facility] [address] Performing Lab: [facility] [address] CREATININE 0.7 mg/dL 0.7-1.2 UREA NITROGEN 19 [...] >60 Apr 23, 2024 01:[address] [facility] CBC & DIFF Specimen Type: BLOOD Comment: Automated Differential Performed Ordering Provider: AARON VICTOR Report Released Date/Time: Apr 23, 2024 12:05 PM Reporting Lab: [facility] [address] Performing Lab: [facility] [address] WBC 12.50 10*3/uL H 4.0-11.0 RBC 4.07 [...] 0-0.1 Apr 21, 2024 07:[address] [facility] URINALYSIS Specimen Type: URINE No comment entered. Ordering Provider: ANANDA HUGGINS Report Released Date/Time: Apr 21, 2024 07:37 AM Reporting Lab: [facility] [address] Performing Lab: [facility] [address] URINE COLOR COLORLESS SPECIFIC GRAVITY 1.009 1.003-1.03 [...] Height Weight Body Mass Index Source Apr 26, 2024 05:15 AM 1 [facility] Apr 26, 2024 05:14 AM 5 [facility] Apr 26, 2024 05:06 AM 1 [facility] Apr 26, 2024 01:29 AM 9 [facility] Apr 26, 2024 01:28 AM 9 [facility] Social History: Smoking Status (Most current) [...] 2023 11:30 AM VA-TOBACCO FORMER USER [facility] Tobacco Use History This section includes a history of the smoking, or tobacco-related health factors, that were collected on or before the date of the Encounter. The data comes from the [place] facility where the Encounter took place. Date/Time Smoking Status/Tobacco Use Comment F acility May 06, 2023 11:30 AM VA-TOBACCO QUIT [address] [facility] Jun 04, 2022 09:00 AM VA-TOBACCO FORMER USER [facility] Jun 04, 2022 09:00 AM VA-TOBACCO QUIT [address] [facility] Jul 10, 2021 08:00 AM VA-TOBACCO FORMER USER [facility] Jul 10, 2021 08:00 AM VA-TOBACCO QUIT 5 TO < [address] [facility] May 23, 2020 08:30 AM VA-TOBACCO FORMER USER [facility] May 23, 2020 08:30 AM VA-TOBACCO QUIT 5 TO < [address] [facility] Mar 20, 2019 04:03 PM VA-TOBACCO FORMER USER [facility] Mar 20, 2019 04:03 PM VA-TOBACCO QUIT 5 TO < [address] [facility] Mar 21, 2018 08:13 AM FORMER TOBACCO USER 7Y OR GREATE R [facility] Feb 24, 2017 09:24 AM FORMER TOBACCO USER 7Y OR GREATE R [facility] January 07, 2016 08:01 AM FORMER TOBACCO USE >1Y <7Y [facility] Feb 03, 2015 07:58 AM FORMER TOBACCO USE <1Y [facility] Feb 26, 2014 08:41 AM CURRENT TOBACCO USER [facility] May 13, 2011 01:45 PM CURRENT TOBACCO USER [facility] Advance Directives: All historical and current Section Date Range: From patient's date of to the date document was created. This section includes ALL of a patient's completed or amended [place] Advance and Rescinded Directives. The entries below indicate that a directive exists for the patient, but an actual copy is not included with this document. The data comes from all [place] facilities. Date Advance Directives Provider Source Mar 23, 2016 CLINICAL WARNING [facility] Radiology Reports: +/- 30 days [...] DRAIN PLAC EMENT PERITONEAL (P): FLACA WEAVER [id number] -1950 M Exm Date: APR 24, 2024@14:13 Req Phys: TAURUS WOOD Loc: 04-24-2024@16:07 Img Loc: INTERVENTIONAL RADIOLOGY Service: PRIMARY [place]ARE [place] [address] (Case [id number] COMPLETE) IR PERITONEAL/RETROPERITONEAL PER(ANI Detailed) CPT:67978 Reason for Study: diverticular abscess Clinical History: [place] IS NOT under investigation for COVID-19 or is COVID-19 negative 73yo M with hx of recurrent diverticulitis, transferred from OSH 04/[address] 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 Palmira Graves MD LAST CREATININE 0.7 (04/23/24) Report Status: Verified Date Reported: APR 24, 2024 Date Verified: APR 24, 2024 Senior Salesforce Developer E-Sig:/ES/SADIA DEE MD Report: PROCEDURES: Placement of [...] anesthesia. Using real-time CT fluoroscopy, a 5 Mongolian Yueh catheter was advanced into the collection in the left lower quadrant. A wire was coiled in the collection. The tract into the collection was dilated to accommodate the 12 Mongolian locking pigtail drainage catheter. The catheter was secured to the skin with monofilament suture and connected to JUAN bulb suction. Impression: Successful placement of a 12 Mongolian locking pigtail drainage catheter in the left lower quadrant abscess. This catheter is connected to JUAN bulb suction with flushes, as ordered. I, SADIA DEE, have reviewed the images and report. Primary Interpreting Staff: SADIA DEE MD, RADIOLOGIST (Senior Salesforce Developer) Primary Interpreting Resident: JEFFREY FLOWER MD, [place] /SADIA SNYDER [facility] Apr 24, 2024 02:[address] NEEDLE PLACEMEN T (P): FLACA WEAVER [id number] -1950 M Exm Date: APR 24, 2024@14:11 Req Phys: TAURUS WOOD Loc: 3KS/04-24-2024@16:07 [facility] [place] Service: PRIMARY [place] [address] (Case [id number] COMPLETE) CT SCAN FOR NEEDLE PLACEMENT (CT Detailed) CPT:28988 Reason for Study: diverticular abscess Clinical History: Report Status: Verified Date Reported: APR 24, 2024 Date Verified: APR 24, 2024 Senior Salesforce Developer E-Sig:/ES/SADIA DEE MD Report: PROCEDURES: Placement of [...] anesthesia. Using real-time CT fluoroscopy, a 5 Mongolian Yueh catheter was advanced into the collection in the left lower quadrant. A wire was coiled in the collection. The tract into the collection was dilated to accommodate the 12 Mongolian locking pigtail drainage catheter. The catheter was secured to the skin with monofilament suture and connected to JUAN bulb suction. Impression: Successful placement of a 12 Mongolian locking pigtail drainage catheter in the left lower quadrant abscess. This catheter is connected to JUAN bulb suction with flushes, as ordered. I, SADIA DEE, have reviewed the images and report. Primary Interpreting Staff: SADIA DEE MD, RADIOLOGIST (Senior Salesforce Developer) Primary Interpreting Resident: JEFFREY FLOWER MD, [place] /SADIA SNYDER [facility] Apr 23, 2024 06:[address] ABDOMEN/ PELVIS: FLACA WEAVER [id number] -1950 M Exm Date: APR 23, 2024@06:36 Req Phys: MCKAY VICTOR Pat Loc: 3K04-24-2024@10:25 [facility] [place] Service: Unknown (Case [id number] COMPLETE) NON [place] CT ABDOMEN/PELVIS (CT Detailed) CPT:19137 Reason for Study: OUTSIDE STUDY Clinical History: [...] Code: VERIFIED BY: / *ELECTRONICALLY FILED* [facility] Pathology Reports: +/- 30 [...] LR MICROBIOLOGY RE PORT: Reporting Lab: [facility] [CLIA# [id number]] [place] [address] Accession [UID]: [id number] [[id number]] Received: Apr 21, 2024@08:16 Collection sample: URINE Collection date: Apr 21, 2024 07:28 Provider: ANANDA HUGGINS Comment on specimen: RECEIVED IN STERILE CUP Test(s) ordered: CULTURE & SUSCEPTIBILITY...... completed: Apr 22, 2024 * BACTERIOLOGY FINAL REPORT => Apr 22, 2024 08:38 TECH CODE: [id number] CULTURE RESULTS: NO GROWTH 24 HOURS Bacteriology Remark(s): THIS REPORT IS FINAL =--=--=--=--=--=--=--=--=--=--=--=- -=--=--=--=--=--=--=--=--=--=--=--= --=--=-- Performing Laboratory: Bacteriology Report Performed By: [facility] [CLIA# [id number]] [place] [address] [facility]
--- OUTSIDE RECORDS SUMMARY | 2024-05-04 01:08 | XMS_ITS | Encounter Summary ---
Author Name [facility] [place] [facility] [place] Address [address] [place] [address] Care Team Providers Care Braid Cutter Name Role Phone JATINDER BENITEZ Primary Care [...] PART A Sep 29, 2016 PART A [id number] [phone] JUDY WEAVER PATIENT Selected Encounter This section includes the information on record at [place] for the Encounter. Date/Time Encounter Type Encounter Description Reason Pro vider Source Apr 25, 2024 01:00 AM Inpatient Visit ADMIN PAT ACTIVTIES (Year UpCT) SYSTEM,CIS-ARK IHE Encounter Template Text not used by [place] Plan of Treatment: Future Appointments (+ 6 months) and Future Tests (+/- 45 days) The Plan of Treatment section includes future care activities for the patient from all [place] treatmentfacilities. This section includes future appointments and [...] 27, 2024 02:30 PM AMBULATORY - NONE [facility] May 02, 2024 10:00 AM AMBULATORY - SURGERY [facility] May 04, 2024 09:00 AM AMBULATORY - NONE [facility] May 07, 2024 08:45 AM AMBULATORY - MEDICINE [facility] May 08, 2024 02:00 PM AMBULATORY - NONE [facility] May 09, 2024 07:30 AM AMBULATORY - SURGERY [facility] May 15, 2024 08:30 AM AMBULATORY - MEDICINE [facility] Active, Pending, and Scheduled Orders This section includes a listing of several types of active, pending, and scheduled orders, including clinic medications orders, diagnostic test orders, procedure orders and consult orders; where the start date of the order is 45 days before the date of the Encounter or 45 days after the date of theEncounter. The data comes from all [facility]. Test Date/Time Test Type Test Details Facility Name Apr 26, 2024 10:10 AM Laboratory - Microbiology Order CULTURE & SUSCEPTIBILITY WOUND OTHER WC ONCE ~For Test: CULTURE & SUSCEPTIBILITY ~Culture sample from JUAN drain output [facility] Apr 26, 2024 10:10 AM Laboratory - Microbiology Order GRAM STAIN WOUND OTHER WC ONCE ~For Test: GRAM STAIN ~JUAN drain culture/gram stain [facility] Apr 27, 2024 02:30 PM Imaging - Ultrasound Order US AORTA (P) [facility] May 04, 2024 12:00 AM Laboratory - Chemistry Order BASIC METABOLIC PANEL+MG PLASMA SP ONCE [facility] May 08, 2024 02:00 PM Imaging - CT Scan Order CT (AP) ABDOMEN/PELVIS (P) LISANDRO [facility] Lab Results: +/- 30 days of the encounter This section includes the Chemistry and Hematology Lab Results on record with [place] for the patient. Radiology Reports and Pathology Reports are provided separately, in subsequent sections. Lab Results This section contains the Chemistry/Hematology Results that were resulted 30 days before or 30 daysafter the date of the Encounter. Date/Time Source Result Type Result - Unit Interpretation Reference Range Comment Apr 26, 2024 07:16 AM [facility] BASIC METABOLIC PANEL+MG Specimen Type: PLASMA No comment entered. Ordering Provider: JONO RANDOLPH Report Released Date/Time: Apr 25, 2024 02:50 PM Reporting Lab: [facility] [phone] Performing Lab: [facility] [phone] CREATININE 0.7 mg/dL 0.7-1.2 UREA NITROGEN 15 mg/dL 8-26 GLUCOSE 106 mg/dL H 70-100 SODIUM 139 mmol/L 136-145 POTASSIUM 3.4 mmol/L L 3.5-5.1 CHLORIDE 105 mmol/L 98-107 CO2 25 mmol/L 22-29 CALCIUM 8.5 mg/dL 8.4-10.2 MAGNESIUM 2.2 mg/dL 1.6-2.6 ANION GAP 9 mmol/L 5-15 .CREAT EGFR(CKD-EPI) >90 >60 Apr 25, 2024 05:10 PM [facility] BASIC METABOLIC PANEL+MG Specimen Type: PLASMA No comment entered. Ordering Provider: GIOVANNI ADLER Report Released Date/Time: Apr 25, 2024 05:04 PM Reporting Lab: [facility] [phone] Performing Lab: [facility] [phone] CREATININE 0.7 mg/dL 0.7-1.2 UREA NITROGEN 15 mg/dL 8-26 GLUCOSE 104 mg/dL H 70-100 SODIUM 139 mmol/L 136-145 POTASSIUM 3.2 mmol/L L 3.5-5.1 CHLORIDE 103 mmol/L 98-107 CO2 28 mmol/L 22-29 CALCIUM 8.5 mg/dL 8.4-10.2 MAGNESIUM 2.2 mg/dL 1.6-2.6 ANION GAP 8 mmol/L 5-15 .CREAT EGFR(CKD-EPI) >90 >60 Apr 25, 2024 07:46 AM [facility] BASIC METABOLIC PANEL+MG Specimen Type: PLASMA No comment entered. Ordering Provider: GIOVANNI ADLER Report Released Date/Time: Apr 24, 2024 12:37 PM Reporting Lab: [facility] [phone] Performing Lab: [facility] [address] CREATININE 0.7 mg/dL 0.7-1.2 UREA NITROGEN 14 mg/dL 8-26 GLUCOSE 127 mg/dL H 70-100 SODIUM 139 mmol/L 136-145 POTASSIUM 2.9 mmol/L L 3.5-5.1 CHLORIDE 101 mmol/L 98-107 CO2 29 mmol/L 22-29 CALCIUM 8.7 mg/dL 8.4-10.2 MAGNESIUM 2.3 mg/dL 1.6-2.6 ANION GAP 9 mmol/L 5-15 .CREAT EGFR(CKD-EPI) >90 >60 Apr 24, 2024 04:42 PM [facility] BASIC METABOLIC PANEL+MG Specimen Type: PLASMA No comment entered. Ordering Provider: GIOVANNI ADLER Report Released Date/Time: Apr 24, 2024 12:37 PM Reporting Lab: [facility] [phone] Performing Lab: [facility] [address] CREATININE 0.7 mg/dL 0.7-1.2 UREA NITROGEN 16 mg/dL 8-26 GLUCOSE 97 mg/dL 70-100 SODIUM 138 mmol/L 136-145 POTASSIUM 2.7 mmol/L L 3.5-5.1 CHLORIDE 99 mmol/L 98-107 CO2 30 mmol/L H 22-29 CALCIUM 8.4 mg/dL 8.4-10.2 MAGNESIUM 2.1 mg/dL 1.6-2.6 ANION GAP 9 mmol/L 5-15 .CREAT EGFR(CKD-EPI) >90 >60 Apr 24, 2024 07:36 AM [facility] BASIC METABOLIC PANEL+MG Specimen Type: PLASMA Comment: Critical Value Reported To: Cait Zamorano RN 04-24-24@[address] [place] [address]. Critical value report confirmed. Ordering Provider: AARON VICTOR Report Released Date/Time: Apr 23, 2024 05:30 PM Reporting Lab: [facility] [address] Performing Lab: [facility] [address] CREATININE 0.7 mg/dL 0.7-1.2 UREA NITROGEN 16 mg/dL 8-26 GLUCOSE 105 mg/dL H 70-100 SODIUM 138 mmol/L 136-145 POTASSIUM 2.3 mmol/L LL 3.5-5.1 CHLORIDE 98 mmol/L 98-107 CO2 29 mmol/L 22-29 CALCIUM 8.3 mg/dL L 8.4-10.2 MAGNESIUM 2.2 mg/dL 1.6-2.6 ANION GAP 11 mmol/L 5-15 .CREAT EGFR(CKD-EPI) >90 >60 Apr 24, 2024 07:35 AM [facility] CBC & DIFF Specimen Type: BLOOD Comment: Automated Differential Performed Ordering Provider: AARON VICTOR Report Released Date/Time: Apr 23, 2024 05:30 PM Reporting Lab: [facility] [phone] Performing Lab: [facility] [address] WBC 10.49 10*3/uL 4.0-11.0 RBC 3.83 10*6/uL [...] 10*3/uL 0-0.1 Apr 23, 2024 01:20 PM [facility] LACTIC ACID Specimen Type: PLASMA No comment entered. Ordering Provider: AARON VITCOR Report Released Date/Time: Apr 23, 2024 12:05 PM Reporting Lab: [facility] [address] Performing Lab: [facility] [address] LACTIC ACID 1.5 mmol/L 0.5-2.2 Apr 23, 2024 01:20 PM [facility] PROTHROMBIN TIME/INR Specimen Type: PLASMA No comment entered. Ordering Provider: AARON VICTOR Report Released Date/Time: Apr 23, 2024 12:05 PM Reporting Lab: [facility] [address] Performing Lab: [facility] [address] .INR 1.2 H 0.8-1.1 .PT 14.5 s H 9.4-12.5 Apr 23, 2024 01:20 PM [facility] ACT PART THROMBO TIME Specimen Type: PLASMA No comment entered. Ordering Provider: AARON VICTOR Report Released Date/Time: Apr 23, 2024 12:05 PM Reporting Lab: [facility] [address] Performing Lab: [facility] [address] APTT 29.3 s 25.1-36.5 Apr 23, 2024 01:20 PM [facility] COMPREHENSIVE METABOLIC PANEL+MG Specimen Type: PLASMA No comment entered. Ordering Provider: AARON VICTOR Report Released Date/Time: Apr 23, 2024 12:05 PM Reporting Lab: [facility] [address] Performing Lab: [facility] [address] CREATININE 0.7 mg/dL 0.7-1.2 UREA NITROGEN 19 [...] >90 >60 Apr 23, 2024 01:20 PM [facility] CBC & DIFF Specimen Type: BLOOD Comment: Automated Differential Performed Ordering Provider: AARON VICTOR Report Released Date/Time: Apr 23, 2024 12:05 PM Reporting Lab: [facility] [address] Performing Lab: [facility] [address] WBC 12.50 10*3/uL H 4.0-11.0 RBC 4.07 [...] 10*3/uL 0-0.1 Apr 21, 2024 07:28 AM [facility] URINALYSIS Specimen Type: URINE No comment entered. Ordering Provider: ANANDA HUGGINS Report Released Date/Time: Apr 21, 2024 07:37 AM Reporting Lab: [facility] [address] Performing Lab: [facility] [address] URINE COLOR COLORLESS SPECIFIC GRAVITY 1.009 1.003-1.03 [...] Source Apr 25, 2024 08:51 PM 5 [facility] Apr 25, 2024 08:50 PM 5 [facility] Apr 25, 2024 04:53 PM 6 [facility] Apr 25, 2024 04:11 PM 6 [facility] Apr 25, 2024 11:59 AM 6 [facility] Social History: Smoking Status (Most current) and Tobacco Use (All prior to encounter date) This section includes the most current, and the historical, smoking and tobacco- related health factors from the [place] facility where the Encounter took place. Current Smoking Status This section includes the most current smoking, or tobacco-related health factor, from the [place] facility where the Encounter took place. Date/Time Current Smoking Status Comment Facil ity May 06, 2023 11:30 AM VA-TOBACCO FORMER USER [facility] Tobacco Use History This section includes a history of the smoking, or tobacco-related health factors, that were collected on or before the date of the Encounter. The data comes from the [place] facility where the Encounter took place. Date/Time Smoking Status/Tobacco Use Comment F acility May 06, 2023 11:30 AM VA-TOBACCO QUIT 15 YRS OR MORE [facility] Jun 04, 2022 09:00 AM VA-TOBACCO FORMER USER [facility] Jun 04, 2022 09:00 AM VA-TOBACCO QUIT 15 YRS OR MORE [facility] Jul 10, 2021 08:00 AM VA-TOBACCO FORMER USER [facility] Jul 10, 2021 08:00 AM VA-TOBACCO QUIT 5 TO < 15 YRS [facility] May 23, 2020 08:30 AM VA-TOBACCO FORMER USER [facility] May 23, 2020 08:30 AM VA-TOBACCO QUIT 5 TO < 15 YRS [facility] Mar 20, 2019 04:03 PM VA-TOBACCO FORMER USER [facility] Mar 20, 2019 04:03 PM VA-TOBACCO QUIT 5 TO < 15 YRS [facility] Mar 21, 2018 08:13 AM FORMER TOBACCO USER 7Y OR GREATE R [facility] Feb 24, 2017 09:24 AM FORMER TOBACCO USER 7Y OR GREATE R [facility] January 07, 2016 08:01 AM FORMER TOBACCO USE >1Y <7Y [facility] Feb 03, 2015 07:58 AM FORMER TOBACCO USE <1Y [facility] Feb 26, 2014 08:41 AM CURRENT TOBACCO USER [facility] May 13, 2011 01:45 PM CURRENT TOBACCO USER [facility] Advance Directives: All historical and current Section Date Range: From patient's date of to the date document was created. This section includes ALL of a patient's completed or amended [place] Advance and Rescinded Directives. The entries below indicate that a directive exists for the patient, but an actual copy is not included with this document. The data comes from all [place] facilities. Date Advance Directives Provider Source Mar 23, 2016 CLINICAL WARNING [facility] Radiology Reports: +/- 30 days of [...] the Encounter. The data comes from all [place] treatment facilities. Date/Time Radiology Report Provider Source Apr 24, 2024 02:13 PM ABSCESS DRAIN PLAC EMENT PERITONEAL (P): FLACA WEAVER [id number] -1950 M Exm Date: APR 24, 2024@14:13 Req Phys: TAURUS WOOD Pat Loc: 3K04-24-2024@16:07 Img Loc: INTERVENTIONAL RADIOLOGY Service: PR[place] [address] (Case [id number] COMPLETE) IR PERITONEAL/RETROPERITONEAL PER(ANI Detailed) CPT:17332 Reason for Study: diverticular abscess Clinical History: IS NOT under investigation for COVID-19 or is COVID-19 negative 73yo M with hx of recurrent diverticulitis, transferred from [facility] 04/[address] 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 Palmira Graves MD LAST CREATININE 0.7 (04/23/24) Report Status: Verified Date Reported: APR 24, 2024 Date Verified: APR 24, 2024 Registered Nurse Float Pool E-Sig:/ES/SADIA DEE MD Report: PROCEDURES: Placement of [...] real-time CT fluoroscopy, a 5 Citizen Of [place] Yueh catheter was advanced into the collection in the left lower quadrant. A wire was coiled in the collection. The tract into the collection was dilated to accommodate the 12 Citizen Of [place] locking pigtail drainage catheter. The catheter was secured to the skin with monofilament suture and connected to JUAN bulb suction. Impression: Successful placement of a 12 Citizen [place] locking pigtail drainage catheter in the left lower quadrant abscess. This catheter is connected to JUAN bulb suction with flushes, as ordered. I, SADIA DEE, have reviewed the images and report. Primary Interpreting Staff: SADIA DEE MD, RADIOLOGIST (Registered Nurse Float Pool) Primary Interpreting Resident: JEFFREY FLOWER MD, ONCOLOGY RADIATION PHYSICIAN /SADIA SNYDER [facility] Apr 24, 2024 02:[address] NEEDLE PLACEMEN T (P): FLACA WEAVER [id number] -1950 M Exm Date: APR 24, 2024@14:11 Req Phys: TAURUS WOOD Loc: 3KS04-24-2024@16:07 Im Loc: CT IMAGING Service: [place] [address] (Case [id number] COMPLETE) CT SCAN FOR NEEDLE PLACEMENT (CT Detailed) CPT:97789 Reason for Study: diverticular abscess Clinical History: Report Status: Verified Date Reported: APR 24, 2024 Date Verified: APR 24, 2024 Registered Nurse Float Pool E-Sig:/ES/SADIA DEE MD Report: PROCEDURES: Placement of [...] real-time CT fluoroscopy, a 5 Citizen Of [place] Yueh catheter was advanced into the collection in the left lower quadrant. A wire was coiled in the collection. The tract into the collection was dilated to accommodate the 12 Citizen Of [place] locking pigtail drainage catheter. The catheter was secured to the skin with monofilament suture and connected to JUAN bulb suction. Impression: Successful placement of a 12 Citizen [place] locking pigtail drainage catheter in the left lower quadrant abscess. This catheter is connected to JUAN bulb suction with flushes, as ordered. I, SADIA DEE, have reviewed the images and report. Primary Interpreting Staff: SADIA DEE MD, RADIOLOGIST (Registered Nurse Float Pool) Primary Interpreting Resident: JEFFREY FLOWER MD, ONCOLOGY RADIATION PHYSICIAN /SADIA SNYDER [facility] Apr 23, 2024 06:[address] ABDOMEN/ PELVIS: FLACA WEAVER [id number] -1950 M Exm Date: APR 23, 2024@06:36 Req Phys: MCKAY VICTOR Loc: 04-24-2024@10:25 [facility] Loc: OUTSOURCE CT Service: Unknown (Case [id number] COMPLETE) NON VA CT ABDOMEN/PELVIS (CT Detailed) CPT:65648 Reason for Study: OUTSIDE STUDY Clinical History: OUTSIDE STUDY Report Status: Electronically Filed Date Reported: APR 24, 2024 Report: This is an outside Imaging study and/or report imported for continuity of patient care. This Imaging study and/or report was not reviewed or verified by a [place] Radiologist. Impression: This is an outside Imaging study and/or report imported for continuity of patient care. This Imaging study and/or report was not reviewed or verified by a [place] Radiologist. Primary Diagnostic Code: VERIFIED BY: / *ELECTRONICALLY FILED* [facility] Pathology Reports: +/- 30 days of [...] the Encounter. The data comes from all [place] treatment facilities. Date/Time Pathology Report Provider Source Apr 21, 2024 07:28 AM LR MICROBIOLOGY RE PORT: Reporting Lab: [facility] [CLIA# [id number]] [place] [address] Accession [UID]: [id number] [[id number]] Received: Apr 21, 2024@08:16 Collection sample: URINE Collection date: Apr 21, 2024 07:28 Provider: ANANDA HUGGINS Comment on specimen: RECEIVED IN STERILE CUP Test(s) ordered: CULTURE & SUSCEPTIBILITY...... completed: Apr 22, 2024 * BACTERIOLOGY FINAL REPORT => Apr 22, 2024 08:38 TECH CODE: [id number] CULTURE RESULTS: NO GROWTH 24 HOURS Bacteriology Remark(s): THIS REPORT IS FINAL =--=--=--=--=--=--=--=--=--=--=--=- -=--=--=--=--=--=--=--=--=--=--=--= --=--=-- Performing Laboratory: Bacteriology Report Performed By: [facility] [CLIA# [id number]] [address] [place] [address] [facility] Encounter Notes: All associated encounter notes This section contains the clinical notes associated to the Encounter. Date/Time Encounter Note(s) Provider Source Apr 25, 2024 01:00 AM CRITICAL CARE UNIT NOTE: LOCAL TITLE: ICCA INPATIENT FLOWSHEET STANDARD TITLE: CRITICAL CARE UNIT NOTE DATE OF NOTE: APR 25, 2024@01:00 ENTRY DATE: APR 26, 2024@14:32:59 AUTHOR: [employer] EXP COSIGNER: URGENCY: STATUS: COMPLETED This is a place aranda only. Please see Algorithmia to view document. /es/ [employer] SYSTEM ICU DOCUMENT IMPORT Signed: 04/26/2024 14:32 [employer] [facility] Apr 25, 2024 01:00 AM CRITICAL CARE UNIT NOTE: LOCAL TITLE: [facility] RESPIRATORY THERAPY FLOWSHEET STANDARD TITLE: CRITICAL CARE UNIT NOTE DATE OF NOTE: APR 25, 2024@01:00 ENTRY DATE: APR 26, 2024@15:01:43 AUTHOR: [employer] EXP COSIGNER: URGENCY: STATUS: COMPLETED This is a place aranda only. Please see [employer] to view document. /es/ [employer] SYSTEM ICU DOCUMENT IMPORT Signed: 04/26/2024 15:01 [employer] [facility]
--- OUTSIDE RECORDS SUMMARY | 2024-05-04 01:08 | XMS_ITS | Encounter Summary ---
Author Name [facility] [facility] [place] [facility] [place] [facility] [place] Address [address] [place] [address] Care Team Providers Care Overlock Waistline Joiner Name Role Phone JATINDER BENITEZ Primary Care [...] PART A Sep 29, 2016 PART A [phone] JUDY ROY PATIENT Selected Encounter This section includes the information on record at [place] for the Encounter. Date/Time Encounter Type Encounter Description Reason Pro vider Source Apr 25, 2024 09:00 AM Inpatient Visit ADMIN PAT ACTIVTIES (MASNONCT) MCKAY TOBIN Encounter Template Text not used by [place] Plan of Treatment: Future Appointments (+ 6 [...] 27, 2024 02:30 PM AMBULATORY - NONE [facility] May 02, 2024 10:00 AM AMBULATORY - SURGERY [facility] May 04, 2024 09:00 AM AMBULATORY - NONE [facility] May 07, 2024 08:45 AM AMBULATORY - MEDICINE [facility] May 08, 2024 02:00 PM AMBULATORY - NONE [facility] May 09, 2024 07:30 AM AMBULATORY - SURGERY [facility] May 15, 2024 08:30 AM AMBULATORY [...] of theEncounter. The data comes from all [facility]. Test Date/Time Test Type Test Details Facility Name Apr 26, 2024 10:10 AM Laboratory - Microbiology Order GRAM STAIN WOUND OTHER WC ONCE ~For Test: GRAM STAIN ~JUAN drain culture/gram stain [facility] Apr 26, 2024 10:10 AM Laboratory - Microbiology Order CULTURE & SUSCEPTIBILITY WOUND OTHER WC ONCE ~For Test: CULTURE & SUSCEPTIBILITY ~Culture sample from JUAN drain output [facility] Apr 27, 2024 02:30 PM [...] and Hematology Lab Results on record with [place] for the patient. Radiology Reports and Pathology [...] Apr 25, 2024 02:50 PM Reporting Lab: [facility] [phone] Performing Lab: [facility] [phone] CREATININE 0.7 mg/dL 0.7-1.2 UREA NITROGEN 15 [...] Apr 25, 2024 05:04 PM Reporting Lab: [facility] [phone] Performing Lab: [facility] [address] CREATININE 0.7 mg/dL 0.7-1.2 UREA NITROGEN 15 [...] Apr 24, 2024 12:37 PM Reporting Lab: [facility] [address] Performing Lab: [facility] [address] CREATININE 0.7 mg/dL 0.7-1.2 UREA NITROGEN 14 [...] Apr 24, 2024 12:37 PM Reporting Lab: [facility] [address] Performing Lab: [facility] [address] CREATININE 0.7 mg/dL 0.7-1.2 UREA NITROGEN 16 [...] Critical Value Reported To: Cait Zamorano RN 04-24-24@[address] [place] [address]. Critical value report confirmed. Ordering Provider: AARON VICTOR Report Released Date/Time: Apr 23, 2024 05:30 PM Reporting Lab: [facility] [phone] Performing Lab: [facility] [address] CREATININE 0.7 mg/dL 0.7-1.2 UREA NITROGEN 16 [...] Apr 23, 2024 05:30 PM Reporting Lab: [facility] [phone] Performing Lab: [facility] [address] WBC 10.49 10*3/uL 4.0-11.0 RBC 3.83 10*6/uL [...] Apr 23, 2024 12:05 PM Reporting Lab: [facility] [address] Performing Lab: [facility] [address] LACTIC ACID 1.5 mmol/L 0.5-2.2 Apr 23, 2024 01:20 PM [facility] ACT PART THROMBO TIME Specimen Type: PLASMA No comment entered. Ordering Provider: AARON VICTOR Report Released Date/Time: Apr 23, 2024 12:05 PM Reporting Lab: [facility] [address] Performing Lab: [facility] [address] APTT 29.3 s 25.1-36.5 Apr 23, 2024 01:20 PM [facility] PROTHROMBIN TIME/INR Specimen Type: PLASMA No comment entered. Ordering Provider: AARON VICTOR Report Released Date/Time: Apr 23, 2024 12:05 PM Reporting Lab: [facility] [address] Performing Lab: [facility] [address] .INR 1.2 H 0.8-1.1 .PT 14.5 s H 9.4-12.5 Apr 23, 2024 01:20 PM [facility] COMPREHENSIVE METABOLIC PANEL+MG Specimen Type: PLASMA No comment entered. Ordering Provider: AARON VICTOR Report Released Date/Time: Apr 23, 2024 12:05 PM Reporting Lab: [facility] [address] Performing Lab: [facility] [address] CREATININE 0.7 mg/dL 0.7-1.2 UREA NITROGEN 19 [...] Apr 23, 2024 12:05 PM Reporting Lab: [facility] [address] Performing Lab: [facility] [address] WBC 12.50 10*3/uL H 4.0-11.0 RBC 4.07 [...] Apr 21, 2024 07:37 AM Reporting Lab: [facility] [address] Performing Lab: [facility] [address] URINE COLOR COLORLESS SPECIFIC GRAVITY 1.009 1.003-1.03 [...] Source Apr 25, 2024 08:51 PM 5 [facility] Apr 25, 2024 08:50 PM 5 [facility] Apr 25, 2024 04:53 PM 6 [facility] Apr 25, 2024 04:11 PM 6 [facility] Apr 25, 2024 11:59 AM 6 [facility] Social History: Smoking Status (Most [...] this document. The data comes from all [place] facilities. Date Advance Directives Provider Source Mar 23, [address] [facility] Radiology Reports: +/- 30 days [...] the Encounter. The data comes from all [place] treatment facilities. Date/Time Radiology Report Provider Source Apr 24, 2024 02:13 PM ABSCESS DRAIN PLAC EMENT PERITONEAL (P): FLYNN ROY [id number] -1950 M Exm Date: APR 24, 2024@14:13 Req Phys: TAURUS WOOD Pat Loc: 3K04-24-2024@16:07 Img Loc: INTERVENTIONAL RADIOLOGY Service: PR[place] [address] (Case [id number] COMPLETE) IR PERITONEAL/RETROPERITONEAL PER(ANI Detailed) CPT:32883 Reason for Study: diverticular abscess Clinical History: [place] IS NOT under investigation for COVID-19 or is COVID-19 negative 73yo M with hx of recurrent diverticulitis, transferred from [facility] 04/[address] 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 Palmira Graves MD LAST CREATININE 0.7 (04/23/24) Report Status: Verified Date Reported: APR 24, 2024 Date Verified: APR 24, 2024 Wood Engraver E-Sig:/ES/SADIA DEE MD Report: PROCEDURES: Placement of [...] anesthesia. Using real-time CT fluoroscopy, a 5 Bulgarian Yueh catheter was advanced into the collection in the left lower quadrant. A wire was coiled in the collection. The tract into the collection was dilated to accommodate the 12 Bulgarian locking pigtail drainage catheter. The catheter was secured to the skin with monofilament suture and connected to JUAN bulb suction. Impression: Successful placement of a 12 Bulgarian locking pigtail drainage catheter in the left lower quadrant abscess. This catheter is connected to JUAN bulb suction with flushes, as ordered. I, SADIA DEE, have reviewed the images and report. Primary Interpreting Staff: SADIA DEE MD, RADIOLOGIST (Wood Engraver) Primary Interpreting Resident: JEFFREY FLOWER MD, SPECIAL WARFARE OPERATOR /SADIA SNYDER [facility] Apr 24, 2024 02:[address] NEEDLE PLACEMEN T (P): FLYNN ROY [id number] -1950 M Exm Date: APR 24, 2024@14:11 Req Phys: TAURUS WOOD Loc: 3KS04-24-2024@16:07 Im Loc: CT IMAGING Service: [place] [address] (Case [id number] COMPLETE) CT SCAN FOR NEEDLE PLACEMENT (CT Detailed) CPT:98604 Reason for Study: diverticular abscess Clinical History: Report Status: Verified Date Reported: APR 24, 2024 Date Verified: APR 24, 2024 Wood Engraver E-Sig:/ES/SADIA DEE MD Report: PROCEDURES: Placement of [...] anesthesia. Using real-time CT fluoroscopy, a 5 Bulgarian Yueh catheter was advanced into the collection in the left lower quadrant. A wire was coiled in the collection. The tract into the collection was dilated to accommodate the 12 Bulgarian locking pigtail drainage catheter. The catheter was secured to the skin with monofilament suture and connected to JUAN bulb suction. Impression: Successful placement of a 12 Bulgarian locking pigtail drainage catheter in the left lower quadrant abscess. This catheter is connected to JUAN bulb suction with flushes, as ordered. I, SADIA DEE, have reviewed the images and report. Primary Interpreting Staff: SADIA DEE MD, RADIOLOGIST (Wood Engraver) Primary Interpreting Resident: JEFFREY FLOWER MD, SPECIAL WARFARE OPERATOR /SADIA SNYDER [facility] Apr 23, 2024 06:[address] ABDOMEN/ PELVIS: FLYNN ROY [id number] -1950 M Exm Date: APR 23, 2024@06:36 Req Phys: MCKAY VICTOR Loc: 04-24-2024@10:25 [facility] Loc: OUTSOURCE CT Service: Unknown (Case [id number] COMPLETE) NON [facility] CT ABDOMEN/PELVIS (CT Detailed) CPT:58134 Reason for Study: OUTSIDE STUDY Clinical History: OUTSIDE STUDY Report Status: Electronically Filed Date Reported: APR 24, 2024 Report: This is an outside Imaging study and/or report imported for continuity of patient care. This Imaging study and/or report was not reviewed or verified by a [place] Radiologist. Impression: This is an outside Imaging study and/or report imported for continuity of patient care. This Imaging study and/or report was not reviewed or verified by a [place] Radiologist. Primary Diagnostic Code: VERIFIED BY: / [...] the Encounter. The data comes from all [place] treatment facilities. Date/Time Pathology Report Provider Source Apr 21, 2024 07:28 AM LR MICROBIOLOGY RE PORT: Reporting Lab: [facility] [CLIA# [id number]] [place] [address] Accession [UID]: [id number] [[id number]] Received: Apr 21, 2024@08:16 Collection sample: URINE Collection date: Apr 21, 2024 07:28 Provider: ANANDA HUGGINS Comment on specimen: RECEIVED IN STERILE CUP Test(s) ordered: CULTURE & SUSCEPTIBILITY...... completed: Apr 22, 2024 * BACTERIOLOGY FINAL REPORT => Apr 22, 2024 08:38 TECH CODE: [id number] CULTURE RESULTS: NO GROWTH 24 HOURS Bacteriology Remark(s): THIS REPORT IS FINAL =--=--=--=--=--=--=--=--=--=--=--=- -=--=--=--=--=--=--=--=--=--=--=--= --=--=-- Performing Laboratory: Bacteriology Report Performed By: [facility] [CLIA# [id number]] [address] [place] [address] [facility] Encounter Notes: All associated encounter notes This section contains the clinical notes associated to the Encounter. Date/Time Encounter Note(s) Provider Source Apr 25, 2024 03:33 PM PUBLIC HEALTH NOTE : LOCAL TITLE: DISRUPTIVE BEHAVIOR NOTE STANDARD TITLE: PUBLIC HEALTH NOTE DATE OF NOTE: APR 25, 2024@15:33 ENTRY DATE: APR 27, 2024@10:33:30 AUTHOR: MCKAY TOBIN COSIGNER: URGENCY: STATUS: COMPLETED THIS PROGRESS NOTE MAY ONLY BE ENTERED BY APPROVED MEMBERS OF THE DISRUPTIVE BEHAVIOR COMMITTEE. GENERAL USE IS PROHIBITED. CONTACT DISRUPTIVE BEHAVIOR COMMITTEE CO-CHAIRPERSONS FOR FURTHER INFORMATION/CLARIFICATION. An event was reported to the Disruptive Behavior Reporting System (DBRS). For information contact your Disruptive Behavior Committee and provide DBRS reference number [id number] ([phone] (09/08/22), [phone] (08/02/17), [phone] (04/22/17), [phone] (03/23/16), [phone] (01/13/16)). The DBRS electronic report was reviewed by the Disruptive Behavior Committee (DBC) on Mar. The committee decided that the behavior reported warrants a letter that will be sent to the expressing our concern and reinforcing [facility] expectations of appropriate behavior. [facility] Tracking Number: [id number] The letter reads as follows: April 27, 2024 [address] Flynn Suleman Roy [address] [place] [address] Dear Gabriela Roy, It has been reported to the Disruptive Behavior Committee (DBC) of the [facility] ([facility]) that on April 25, 2024, during your recent hospitalization at the [facility], you were verbally abusive toward staff. Specifically, it was reported that you were engaging in yelling, swearing, and name calling, and that your behavior continued despite staff attempting to set appropriate limits with you. We have received several other reports of similar behavior by you in the past. The Disruptive Behavior Committee (DBC), after reviewing the incidents mentioned above has decided to send you this letter to reinforce our policies that prohibit violent, threatening or aggressive behavior toward staff or fellow veterans. This letter serves as a reminder that you may not continue with these behaviors. Future behavior such as that mentioned above will result in additional actions by the DBC. Additional DBC actions can include one or more of the following: Entering a national behavior flag to warn VA staff about your disruptive behavior; requiring you to register with the [facility] Police upon entering the medical center to obtain a Zero Tolerance card; requiring a [facility] Police escort during your visits to this facility; or making recommendations to Medical Center leadership for other restrictions to your care. The DBC was established with the approval of the [facility] assembly instructions writer to address issues regarding the safety of veterans receiving care here and the staff who provide that care. The DBC reviews reports from staff and patients and recommends corrective action to prevent reoccurrences of inappropriate behavior. The DBC is comprised of [facility] staff from a variety of health care disciplines as well as the [place] Police and a Patient Broke Beater. We hope your future visits to this medical center are pleasant and your medical needs are met with courtesy and professionalism. If you become frustrated with the care you receive, or if you have any questions or need additional information regarding this letter, please address your concerns in a more constructive way by contacting a Patient Broke Beater at [phone]. Respectfully, The Disruptive Behavior Committee Thank you for taking the time to complete the report and for supporting our efforts to improve safety of the [facility]. /alexi/ MCKAY TOBIN, Ph.D., L.PGabriela [facility] Scale Technician Signed: 04/27/2024 10:34 Receipt Acknowledged By: * AWAITING SIGNATURE * FIDEL STUBBS,MCKAY Pepe [facility]
--- OUTSIDE RECORDS SUMMARY | 2024-05-04 01:08 | XMS_ITS | Encounter Summary ---
Author Name [facility] [place] [facility] [place] Address [address] [place] [address] Care Team Providers Care Bottler Name Role Phone JATINDER BENITEZ Primary Care [...] PART A Sep 29, 2016 PART A [id number] [phone] JUDY WEAVER PATIENT Selected Encounter This section includes the information on record at [place] for the Encounter. Date/Time Encounter Type Encounter Description Reason Pro vider Source Apr 26, 2024 12:48 PM Outpatient Encounter CLINICAL PHARMACY IHE Encounter Template Text not used by [place] Plan of Treatment: Future Appointments (+ 6 months) and Future Tests (+/- 45 days) The Plan of Treatment section includes future care activities for the patient from all [place] treatmentfacilities. This section includes future appointments and future orders which are active, pending or scheduled. Future Appointments This section includes appointments that were scheduled to occur 6 months from the date of the Encounter, up to a maximum of 20 appointments. The data comes from all [place] treatment facilities. Appointment Date/Time Appointment Type Appointme nt Facility Name Apr 27, 2024 02:30 PM AMBULATORY - NONE [facility] May 02, 2024 10:00 AM AMBULATORY - SURGERY [facility] May 04, 2024 09:00 AM AMBULATORY - NONE [facility] May 07, 2024 08:45 AM [facility] May 08, 2024 02:00 [facility] May 09, 2024 07:30 AM AMBULATORY - SURGERY [facility] May 15, 2024 08:30 AM AMBULATORY - MEDICINE [facility] Active, Pending, and Scheduled Orders This section includes a listing of several types of active, pending, and scheduled orders, including clinic medications orders, diagnostic test orders, procedure orders and consult orders; where the start date of the order is 45 days before the date of the Encounter or 45 days after the date of theEncounter. The data comes from all [place] treatment facilities. Test Date/Time Test Type Test [...] and Hematology Lab Results on record with [place] for the patient. Radiology Reports and Pathology [...] Apr 25, 2024 02:50 PM Reporting Lab: [facility] [address] Performing Lab: [facility] [address] CREATININE 0.7 mg/dL 0.7-1.2 UREA NITROGEN 15 [...] PM Reporting Lab: [facility] [address] Performing Lab: [facility] [address] CREATININE 0.7 mg/dL 0.7-1.2 UREA NITROGEN 15 [...] PM Reporting Lab: [facility] [address] Performing Lab: [facility] [address] CREATININE 0.7 mg/dL 0.7-1.2 UREA NITROGEN 14 [...] PM Reporting Lab: [facility] [address] Performing Lab: [facility] [address] CREATININE 0.7 mg/dL 0.7-1.2 UREA NITROGEN 16 [...] Critical Value Reported To: Cait Zamorano RN 04-24-24@[address] [place] [address]. Critical value report confirmed. Ordering Provider: AARON VICTOR Report Released Date/Time: Apr 23, 2024 05:30 PM Reporting Lab: [facility] [address] Performing Lab: [facility] [address] CREATININE 0.7 mg/dL 0.7-1.2 UREA NITROGEN 16 [...] PM Reporting Lab: [facility] [address] Performing Lab: [facility] [address] WBC 10.49 10*3/uL 4.0-11.0 RBC 3.83 10*6/uL [...] PM Reporting Lab: [facility] [address] Performing Lab: [facility] [address] LACTIC ACID 1.5 mmol/L 0.5-2.2 Apr 23, 2024 01:20 PM [facility] PROTHROMBIN TIME/INR Specimen Type: PLASMA No comment entered. Ordering Provider: AARON VICTOR Report Released Date/Time: Apr 23, 2024 12:05 PM Reporting Lab: [facility] [address] Performing Lab: [facility] [address] .INR 1.2 H 0.8-1.1 .PT 14.5 s H 9.4-12.5 Apr 23, 2024 01:20 PM [facility] ACT PART THROMBO TIME Specimen Type: PLASMA No comment entered. Ordering Provider: AARON VICTOR Report Released Date/Time: Apr 23, 2024 12:05 PM Reporting Lab: [facility] [address] Performing Lab: [facility] [address] APTT 29.3 s 25.1-36.5 Apr 23, 2024 01:20 PM [facility] COMPREHENSIVE METABOLIC PANEL+MG Specimen Type: PLASMA No comment entered. Ordering Provider: AARON VICTOR Report Released Date/Time: Apr 23, 2024 12:05 PM Reporting Lab: [facility] [address] Performing Lab: [facility] [address] CREATININE 0.7 mg/dL 0.7-1.2 UREA NITROGEN 19 [...] PM Reporting Lab: [facility] [address] Performing Lab: [facility] [address] WBC 12.50 10*3/uL H 4.0-11.0 RBC 4.07 [...] AM Reporting Lab: [facility] [address] Performing Lab: [facility] [address] URINE COLOR COLORLESS SPECIFIC GRAVITY 1.009 1.003-1.03 [...] Source Apr 26, 2024 05:15 AM 1 [facility] Apr 26, 2024 05:14 AM 5 [facility] Apr 26, 2024 05:06 AM 1 [facility] Apr 26, 2024 01:29 AM 9 [facility] Apr 26, 2024 01:28 AM 9 [facility] Social History: Smoking Status (Most current) and Tobacco Use (All prior to encounter date) This section includes the most current, and the historical, smoking and tobacco- related health factors from the [place] facility where the Encounter took place. Current Smoking Status This section includes the most current smoking, or tobacco-related health factor, from the [place] facility where the Encounter took place. Date/Time Current Smoking Status Comment Facil ity May 06, 2023 11:30 AM VA-TOBACCO FORMER USER [facility] Tobacco Use History This section includes a history of the smoking, or tobacco-related health factors, that were collected on or before the date of the Encounter. The data comes from the [place] facility where the Encounter took place. Date/Time [...] ALL of a patient's completed or amended [place] Advance and Rescinded Directives. The entries below indicate that a directive exists for the patient, but an actual copy is not included with this document. The data comes from all [place] facilities. Date Advance Directives Provider Source Mar [...] the Encounter. The data comes from all [place] treatment facilities. 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 Found to have 2nd degree heart block, planning pacemaker placement Contact number for responsible provider who can be reached for any questions or notifications of critical findings: [phone] If ordering provider is a trainee, enter the name and contact information of the responsible staff physician. Palmira Graves MD LAST CREATININE 0.7 (04/23/24) Report Status: Verified Date Reported: APR 24, 2024 Date Verified: APR 24, 2024 Block Operator E-Sig:/ES/SADIA DEE MD Report: PROCEDURES: Placement [...] anesthesia. Using real-time CT fluoroscopy, a 5 Tuvaluan Yueh catheter was advanced into the collection in the left lower quadrant. A wire was coiled in the collection. The tract into the collection was dilated to accommodate the 12 Tuvaluan locking pigtail drainage catheter. The catheter was secured to the skin with monofilament suture and connected to JUAN bulb suction. Impression: Successful placement of a 12 Tuvaluan locking pigtail drainage catheter in the left lower quadrant abscess. This catheter is connected to JUAN bulb suction with flushes, as ordered. I, SADIA DEE, have reviewed the images and report. Primary Interpreting Staff: SADIA DEE MD, RADIOLOGIST (Block Operator) Primary Interpreting Resident: JEFFREY FLOWER MD, PVC LOADER /SADIA SNYDER [facility] Apr 24, 2024 02:[address] NEEDLE PLACEMEN T (P): FLACA WEAVER [id number] -1950 M Exm Date: APR 24, 2024@14:11 Req Phys: TAURUS WOOD Loc: 3[place]/04-24-2024@16:07 [facility] Loc: CT IMAGING Service: PRIMARY CARE [place] [address] (Case [id number] COMPLETE) CT SCAN FOR NEEDLE PLACEMENT (CT Detailed) CPT:43904 Reason for Study: diverticular abscess Clinical History: Report Status: Verified Date Reported: APR 24, 2024 Date Verified: APR 24, 2024 Block Operator E-Sig:/ES/SADIA DEE MD Report: PROCEDURES: Placement [...] anesthesia. Using real-time CT fluoroscopy, a 5 Tuvaluan Yueh catheter was advanced into the collection in the left lower quadrant. A wire was coiled in the collection. The tract into the collection was dilated to accommodate the 12 Tuvaluan locking pigtail drainage catheter. The catheter was secured to the skin with monofilament suture and connected to JUAN bulb suction. Impression: Successful placement of a 12 Tuvaluan locking pigtail drainage catheter in the left lower quadrant abscess. This catheter is connected to JUAN bulb suction with flushes, as ordered. I, SADIA DEE, have reviewed the images and report. Primary Interpreting Staff: SADIA DEE MD, RADIOLOGIST (Block Operator) Primary Interpreting Resident: JEFFREY FLOWER MD, PVC LOADER /SADIA SNYDER [facility] Apr 23, 2024 06:[address] ABDOMEN/ PELVIS: FLACA WEAVER [id number] -1950 M Exm Date: APR 23, 2024@06:36 Req Phys: MCKAY VICTOR Pat Loc: 3K04-24-2024@10:25 [facility] Loc: OUTSOURCE CT Service: Unknown (Case [id number] COMPLETE) NON VA CT ABDOMEN/PELVIS (CT Detailed) CPT:36793 Reason for Study: OUTSIDE STUDY Clinical History: OUTSIDE STUDY Report Status: Electronically Filed Date Reported: APR 24, 2024 Report: This is an outside Imaging study and/or report imported for continuity of patient care. This Imaging study and/or report was not reviewed or verified by a [place] Radiologist. Impression: This is an outside Imaging study and/or report imported for continuity of patient care. This Imaging study and/or report was not reviewed or verified by a [place] Radiologist. Primary Diagnostic Code: VERIFIED BY: / [...] the Encounter. The data comes from all [place] treatment facilities. Date/Time Pathology Report Provider Source Apr 21, 2024 07:28 AM LR MICROBIOLOGY RE [place]: Reporting Lab: [facility] [CLIA# [id number]] [place] [address] Accession [UID]: [id number] [[id number]] Received: Apr 21, 2024@08:16 Collection sample: URINE Collection date: Apr 21, 2024 07:28 Provider: ANANDA HUGGINS Comment on specimen: RECEIVED IN STERILE CUP Test(s) ordered: CULTURE & SUSCEPTIBILITY...... completed: Apr 22, 2024 * BACTERIOLOGY FINAL REPORT => Apr 22, 2024 08:38 TECH CODE: [id number] CULTURE RESULTS: NO GROWTH 24 HOURS Bacteriology Remark(s): THIS REPORT IS FINAL =--=--=--=--=--=--=--=--=--=--=--=- -=--=--=--=--=--=--=--=--=--=--=--= --=--=-- Performing Laboratory: Bacteriology Report Performed By: [facility] [CLIA# [id number]] [address] [place] [address] [facility] Encounter Notes: All associated encounter notes This section contains the clinical notes associated to the Encounter. Date/Time Encounter Note(s) Provider Source Apr 26, 2024 12:48 PM PHARMACY EDUCATION NOTE: LOCAL TITLE: EDUCATION PHARMACY MED INSTRUCTION/RECONCILIATION STANDARD TITLE: PHARMACY EDUCATION NOTE DATE OF NOTE: APR 26, 2024@12:48 ENTRY DATE: APR 26, 2024@12:48:21 AUTHOR: JEFFREY GEORGE COSIGNER: URGENCY: STATUS: COMPLETED MEDICATION DISCHARGE EDUCATION LEARNING NEEDS/OBJECTIVES Participant(s) indicates readiness to learn and has been instructed on indications, side effects, directions for use and given a list of medications. Participant(s) will receive medication information sheets for medications filled. Education included discussion of the following: Tobacco Cessation Discharge Plan Not Applicable FLACA WEAVER [id number] Source of Info: [facility] ========= New meds/items to diamond picker at Outpatient Pharmacy: Acetaminophen tablet Amoxicillin/clavulanate tablet Phenazopyridine tablet Leg bag, urinary drainage set Should NOT take at home anymore: Furosemide, hydrochlorothiazide/lisinopril OK to resume other usual home meds as before, per physician Drug Last Refills Rx # Qty Filled Remaining ACETAMINOPHEN 325MG TAB [id number] 300 (2) TAKE TWO TABLETS BY MOUTH EVERY 6 HOURS NEEDED FOR PAIN Indication: PAIN Provider: JOSE RANDOLPH AMOXICILLIN 875/CLAV K 125MG TAB [id number] 20 (0) TAKE 1 TABLET BY MOUTH TWICE A DAY Indication: ABSCESS, COLOVESICULAR FISTULA Provider: JOSE RANDOLPH ATORVASTATIN CALCIUM 40MG TAB [id number] 45 04/03/2024 (0) TAKE ONE-HALF TABLET BY MOUTH AT BEDTIME FOR CHOLESTEROL Provider: JATINDER BENITEZ BAG,LEG LATEX REUSABLE UROCARE #[id number] (0) USE 1 BAG DIRECTED WITH CHAPPELL Indication: CHAPPELL Provider: JOSE RANDOLPH EMPAGLIFLOZIN 25MG TAB [id number] 45 01/17/2024 (3) TAKE ONE-HALF TABLET BY MOUTH EVERY DAY Provider: JATINDER BENITEZ ISOSORBIDE MONONITRATE 30MG SA TAB [id number] 90 03/09/2024 (2) TAKE ONE TABLET BY MOUTH EVERY DAY FOR CHEST PAIN Indication: FOR CHEST PAIN Provider: JATINDER BENITEZ NITROGLYCERIN 0.4MG SL TAB [id number] 100 11/21/2023 (1) DISSOLVE ONE TABLET UNDER THE TONGUE THREE TIMES A DAY NEEDED CHEST PAIN FOR CHEST PAIN * MAY REPEAT EVERY 5 MINUTES--NO MORE THAN 3 TOTAL Indication: CHEST PAIN Provider: JATINDER BENITEZ PHENAZOPYRIDINE HCL 100MG TAB [id number] 90 (0) TAKE TWO TABLETS BY MOUTH THREE TIMES A DAY NEEDED FOR BLADDER PAIN Indication: BLADDER PAIN Provider: JOSE RANDOLPH PSYLLIUM ORAL PWD [id number] 01/31/2024 (3) TAKE 2 TEASPOONSFUL BY MOUTH EVERY DAY FOR CONSTIPATION Indication: FOR CONSTIPATION Provider: JATINDER BENITEZ SPIRONOLACTONE 25MG TAB [id number] 45 02/08/2024 (3) TAKE ONE-HALF TABLET BY MOUTH EVERY DAY FOR BLOOD PRESSURE Indication: FOR BLOOD PRESSURE Provider: JATINDER BENITEZ URINARY DRAINAGE SET,ELISA-FIT C#[id number] (0) USE TUBING BARD 18'' LATEX EXT TUBE #[id number] DIRECTED Indication: CHAPPELL Provider: JOSE RANDOLPH PARTICIPANTS: Patient TEACHING STRATEGY: Face to Face, Medication information sheets and list of medications READINESS TO LEARN No barriers identified PATIENT/FAMILY RESPONSE (OUTCOME): Verbalizes critical information about the topic FOLLOW-UP RECOMMENDED: post-discharge PCP /alexi/ JEFFREY GEORGE Pharmacist Signed: 04/26/2024 13:08 Receipt Acknowledged By: 04/26/2024 15:30 /alexi/ JEFFREY LEROY [facility]
--- OUTSIDE RECORDS SUMMARY | 2024-05-04 01:08 | XMS_ITS ---
[place] DAILY HOSPITALIZATION DATA [facility] Encounter Summary Created on: May 03, 2024 FLACA WEAVER : 1950 Sex: Male Author Name [facility] Organization [facility] Address [address] [place] [address] Care Team Providers Care Bilingual Social Worker Name Role Phone JATINDER BENITEZ Primary [...] PART A Sep 29, 2016 PART A [phone] JUDY WEAVER PATIENT Selected Encounter This section includes the information on record at [facility] for the Encounter. Date/Time Encounter Type Encounter Description Reason Pro vider Source Apr 26, 2024 12:32 PM Inpatient Visit DAILY HOSPITALIZATION DATA [facility] Encounter Template Text not used by [facility] Plan of Treatment: Future Appointments (+ 6 months) and Future Tests (+/- 45 days) The Plan of Treatment section includes future care activities for the patient from all [facility] treatmentfacilities. This section includes future appointments and future orders which are active, pending or scheduled. Future Appointments This section includes appointments that were scheduled to occur 6 months from the date of the Encounter, up to a maximum of 20 appointments. The data comes from all [facility] treatment facilities. Appointment Date/Time Appointment Type Appointme nt Facility Name Apr 27, 2024 02:30 PM AMBULATORY - NONE [facility] May 02, 2024 10:00 AM AMBULATORY - SURGERY [facility] May 04, 2024 09:00 AM [facility] May 07, 2024 08:45 AM AMBULATORY - MEDICINE [facility] May 08, 2024 02:00 PM [facility] May 09, 2024 07:30 AM AMBULATORY - SURGERY [facility] May 15, 2024 08:30 AM AMBULATORY - MEDICINE [facility] Active, Pending, and Scheduled Orders This section includes a listing of several types of active, pending, and scheduled orders, including clinic medications orders, diagnostic test orders, procedure orders and consult orders; where the start date of the order is 45 days before the date of the Encounter or 45 days after the date of theEncounter. The data comes from all [facility] treatment facilities. Test Date/Time Test Type Test [...] Apr 25, 2024 02:50 PM Reporting Lab: [facility] [address] Performing Lab: [facility] [address] CREATININE 0.7 mg/dL 0.7-1.2 UREA NITROGEN 15 [...] Apr 25, 2024 05:04 PM Reporting Lab: [facility] [address] Performing Lab: [facility] [address] CREATININE 0.7 mg/dL 0.7-1.2 UREA NITROGEN 15 [...] Apr 24, 2024 12:37 PM Reporting Lab: [facility] [address] Performing Lab: [facility] [address] CREATININE 0.7 mg/dL 0.7-1.2 UREA NITROGEN 14 [...] Apr 24, 2024 12:37 PM Reporting Lab: [facility] [address] Performing Lab: [facility] [address] CREATININE 0.7 mg/dL 0.7-1.2 UREA NITROGEN 16 [...] Critical Value Reported To: Cait Zamorano RN 04-24-24@08[facility]. Critical value report confirmed. Ordering Provider: AARON VICTOR Report Released Date/Time: Apr 23, 2024 05:30 PM Reporting Lab: [facility] [address] Performing Lab: [facility] [address] CREATININE 0.7 mg/dL 0.7-1.2 UREA NITROGEN 16 [...] Apr 23, 2024 05:30 PM Reporting Lab: [facility] [address] Performing Lab: [facility] [address] WBC 10.49 10*3/uL 4.0-11.0 RBC 3.83 10*6/uL [...] Apr 23, 2024 12:05 PM Reporting Lab: [facility] [address] Performing Lab: [facility] [address] LACTIC ACID 1.5 mmol/L 0.5-2.2 Apr 23, 2024 01:20 PM [facility] ACT PART THROMBO TIME Specimen Type: PLASMA No comment entered. Ordering Provider: AARON VICTOR Report Released Date/Time: Apr 23, 2024 12:05 PM Reporting Lab: [facility] [address] Performing Lab: [facility] [address] APTT 29.3 s 25.1-36.5 Apr 23, 2024 01:20 PM [facility] PROTHROMBIN TIME/INR Specimen Type: PLASMA No comment entered. Ordering Provider: AARON VICTOR Report Released Date/Time: Apr 23, 2024 12:05 PM Reporting Lab: [facility] [address] Performing Lab: [facility] [address] .INR 1.2 H 0.8-1.1 .PT 14.5 s H 9.4-12.5 Apr 23, 2024 01:20 PM [facility] COMPREHENSIVE METABOLIC PANEL+MG Specimen Type: PLASMA No comment entered. Ordering Provider: AARON VICTOR Report Released Date/Time: Apr 23, 2024 12:05 PM Reporting Lab: [facility] [address] Performing Lab: [facility] [address] CREATININE 0.7 mg/dL 0.7-1.2 UREA NITROGEN 19 [...] Apr 23, 2024 12:05 PM Reporting Lab: [facility] [address] Performing Lab: [facility] [address] WBC 12.50 10*3/uL H 4.0-11.0 RBC 4.07 [...] 2024 07:37 AM Reporting Lab: [facility] [address] Performing Lab: [facility] [address] URINE COLOR COLORLESS SPECIFIC GRAVITY 1.009 1.003-1.03 [...] Source Apr 26, 2024 05:[address] [facility] Apr 26, 2024 05:[address] [facility] Apr 26, 2024 05:06 AM 1 [facility] Apr 26, 2024 01:29 AM 9 [facility] Apr 26, 2024 01:[address] [facility] Social History: Smoking [...] this document. The data comes from all [place] facilities. 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 Found to have 2nd degree heart block, planning pacemaker placement Contact number for responsible provider who can be reached for any questions or notifications of critical findings: [phone] If ordering provider is a trainee, enter the name and contact information of the responsible staff physician. Palmira Graves MD LAST CREATININE 0.7 (04/23/24) Report Status: Verified Date Reported: APR 24, 2024 Date Verified: APR 24, 2024 Ship Laborer E-Sig:/ES/SADIA DEE MD Report: PROCEDURES: Placement of [...] anesthesia. Using real-time CT fluoroscopy, a 5 Norwegian Yueh catheter was advanced into the collection in the left lower quadrant. A wire was coiled in the collection. The tract into the collection was dilated to accommodate the 12 Norwegian locking pigtail drainage catheter. The catheter was secured to the skin with monofilament suture and connected to JUAN bulb suction. Impression: Successful placement of a 12 Norwegian locking pigtail drainage catheter in the left lower quadrant abscess. This catheter is connected to JUAN bulb suction with flushes, as ordered. I, SADIA DEE, have reviewed the images and report. Primary Interpreting Staff: SADIA DEE MD, RADIOLOGIST (Ship Laborer) Primary Interpreting Resident: JEFFREY FLOWER MD, LEARNING PROGRAM MANAGER /SADIA SNYDER [facility] Apr 24, 2024 02:[address] NEEDLE PLACEMEN T (P): FLACA WEAVER [id number] -1950 M Exm Date: APR 24, 2024@14:11 Req Phys: TAURUS WOOD Loc: 3KS/04-24-2024@16:07 [facility] Loc: CT IMAGING Service: PRIMARY [place] [address] (Case [id number] COMPLETE) CT SCAN FOR NEEDLE PLACEMENT (CT Detailed) CPT:62013 Reason for Study: diverticular abscess Clinical History: Report Status: Verified Date Reported: APR 24, 2024 Date Verified: APR 24, 2024 Ship Laborer E-Sig:/ES/SADIA DEE MD Report: PROCEDURES: Placement of [...] anesthesia. Using real-time CT fluoroscopy, a 5 Norwegian Yueh catheter was advanced into the collection in the left lower quadrant. A wire was coiled in the collection. The tract into the collection was dilated to accommodate the 12 Norwegian locking pigtail drainage catheter. The catheter was secured to the skin with monofilament suture and connected to JUAN bulb suction. Impression: Successful placement of a 12 Norwegian locking pigtail drainage catheter in the left lower quadrant abscess. This catheter is connected to JUAN bulb suction with flushes, as ordered. I, SADIA DEE, have reviewed the images and report. Primary Interpreting Staff: SADIA DEE MD, RADIOLOGIST (Ship Laborer) Primary Interpreting Resident: JEFFREY FLOWER MD, LEARNING PROGRAM MANAGER /SADIA SNYDER [facility] Apr 23, 2024 06:[address] ABDOMEN/ PELVIS: FLACA WEAVER [id number] -1950 M Exm Date: APR 23, 2024@06:36 Req Phys: MCKAY VICTOR Pat Loc: 3K04-24-2024@10:25 [facility] Loc: OUTSOURCE CT Service: Unknown (Case [id number] COMPLETE) NON [facility] CT ABDOMEN/PELVIS (CT Detailed) CPT:13299 Reason for Study: OUTSIDE STUDY Clinical History: [...] PORT: Reporting Lab: [facility] [CLIA# [id number]] [place] [address] Accession [UID]: [id number] [[id number]] Received: Apr 21, 2024@08:16 Collection sample: URINE Collection date: Apr 21, 2024 07:28 Provider: ANANDA HUGGINS Comment on specimen: RECEIVED IN STERILE CUP Test(s) ordered: CULTURE & SUSCEPTIBILITY...... completed: Apr 22, 2024 * BACTERIOLOGY FINAL REPORT => Apr 22, 2024 08:38 TECH CODE: [id number] CULTURE RESULTS: NO GROWTH 24 HOURS Bacteriology Remark(s): THIS REPORT IS FINAL =--=--=--=--=--=--=--=--=--=--=--=- -=--=--=--=--=--=--=--=--=--=--=--= --=--=-- Performing Laboratory: Bacteriology Report Performed By: [facility] [CLIA# [id number]] [place] [address] [facility]
--- OUTSIDE RECORDS SUMMARY | 2024-05-04 01:08 | XMS_ITS | Encounter Summary ---
Author Name [facility] Address [address] [place] [address] Care Team Providers Care Lawyer Criminal Name Role Phone JATINDER BENITEZ Primary Care [...] PART A Sep 29, 2016 PART A [id number] JUDY WEAVER PATIENT Selected Encounter This section includes the information on record at [place] for the Encounter. Date/Time Encounter Type Encounter Description Reason Pro vider Source Apr 26, 2024 12:44 PM Inpatient Visit EVENT (HISTORICAL) [facility] Encounter Template Text not used by [place] [...] 27, 2024 02:30 PM [facility] May 02, 2024 10:00 AM AMBULATORY - SURGERY [facility] May 04, 2024 09:00 AM AMBULATORY - NONE [facility] May 07, 2024 08:45 AM AMBULATORY - MEDICINE [facility] May 08, 2024 02:00 PM AMBULATORY - NONE [facility] May 09, 2024 07:30 AM AMBULATORY - SURGERY [facility] May 15, 2024 08:30 AM AMBULATORY - MEDICINE [facility] Active, Pending, and Scheduled Orders This [...] GRAM STAIN ~JUAN drain culture/gram stain [facility] Apr 26, 2024 10:10 AM Laboratory - Microbiology Order CULTURE & SUSCEPTIBILITY WOUND OTHER WC ONCE ~For Test: CULTURE & SUSCEPTIBILITY ~Culture sample from JUAN drain output [facility] Apr 27, 2024 02:30 PM Imaging - Ultrasound Order US AORTA (P) [facility] May 04, 2024 12:00 AM Laboratory - Chemistry Order BASIC METABOLIC PANEL+MG PLASMA SP ONCE [facility] May 08, 2024 02:00 PM Imaging - CT Scan Order CT (AP) ABDOMEN/PELVIS (P) LISANDRO [facility] Lab Results: +/- 30 days [...] Comment Apr 26, 2024 07:16 AM [facility] BASIC METABOLIC PANEL+MG Specimen Type: PLASMA No comment entered. Ordering Provider: JONO RANDOLPH Report Released Date/Time: Apr 25, 2024 02:50 PM Reporting Lab: [place] [facility] [id number] Performing Lab: [facility] [id number] CREATININE 0.7 mg/dL 0.7-1.2 UREA NITROGEN 15 mg/dL 8-26 GLUCOSE 106 mg/dL H 70-100 SODIUM 139 mmol/L 136-145 POTASSIUM 3.4 mmol/L L 3.5-5.1 CHLORIDE 105 mmol/L 98-107 CO2 25 mmol/L 22-29 CALCIUM 8.5 mg/dL 8.4-10.2 MAGNESIUM 2.2 mg/dL 1.6-2.6 ANION GAP 9 mmol/L 5-15 .CREAT EGFR(CKD-EPI) >90 >60 Apr 25, 2024 05:10 PM [facility] BASIC METABOLIC PANEL+MG Specimen Type: PLASMA No comment entered. Ordering Provider: GIOVANNI ADLER Report Released Date/Time: Apr 25, 2024 05:04 PM Reporting Lab: [facility] [id number] Performing Lab: [facility] [phone] CREATININE 0.7 mg/dL 0.7-1.2 UREA NITROGEN 15 mg/dL 8-26 GLUCOSE 104 mg/dL H 70-100 SODIUM 139 mmol/L 136-145 POTASSIUM 3.2 mmol/L L 3.5-5.1 CHLORIDE 103 mmol/L 98-107 CO2 28 mmol/L 22-29 CALCIUM 8.5 mg/dL 8.4-10.2 MAGNESIUM 2.2 mg/dL 1.6-2.6 ANION GAP 8 mmol/L 5-15 .CREAT EGFR(CKD-EPI) >90 >60 Apr 25, 2024 07:46 AM [facility] BASIC METABOLIC PANEL+MG Specimen Type: PLASMA No comment entered. Ordering Provider: GIOVANNI ADLER Report Released Date/Time: Apr 24, 2024 12:37 PM Reporting Lab: [facility] [phone] Performing Lab: [facility] [phone] CREATININE 0.7 mg/dL 0.7-1.2 UREA NITROGEN 14 mg/dL 8-26 GLUCOSE 127 mg/dL H 70-100 SODIUM 139 mmol/L 136-145 POTASSIUM 2.9 mmol/L L 3.5-5.1 CHLORIDE 101 mmol/L 98-107 CO2 29 mmol/L 22-29 CALCIUM 8.7 mg/dL 8.4-10.2 MAGNESIUM 2.3 mg/dL 1.6-2.6 ANION GAP 9 mmol/L 5-15 .CREAT EGFR(CKD-EPI) >90 >60 Apr 24, 2024 04:42 PM [facility] BASIC METABOLIC PANEL+MG Specimen Type: PLASMA No comment entered. Ordering Provider: GIOVANNI ADLER Report Released Date/Time: Apr 24, 2024 12:37 PM Reporting Lab: [facility] [phone] Performing Lab: [facility] [phone] CREATININE 0.7 mg/dL 0.7-1.2 UREA NITROGEN 16 mg/dL 8-26 GLUCOSE 97 mg/dL 70-100 SODIUM 138 mmol/L 136-145 POTASSIUM 2.7 mmol/L L 3.5-5.1 CHLORIDE 99 mmol/L 98-107 CO2 30 mmol/L H 22-29 CALCIUM 8.4 mg/dL 8.4-10.2 MAGNESIUM 2.1 mg/dL 1.6-2.6 ANION GAP 9 mmol/L 5-15 .CREAT EGFR(CKD-EPI) >90 >60 Apr 24, 2024 07:36 AM [facility] BASIC METABOLIC PANEL+MG Specimen Type: PLASMA Comment: Critical Value Reported To: Cait Zamorano RN 04-24-24@[address] [place] [address]. Critical value report confirmed. Ordering Provider: AARON VICTOR Report Released Date/Time: Apr 23, 2024 05:30 PM Reporting Lab: [facility] [phone] Performing Lab: [facility] [phone] CREATININE 0.7 mg/dL 0.7-1.2 UREA NITROGEN 16 mg/dL 8-26 GLUCOSE 105 mg/dL H 70-100 SODIUM 138 mmol/L 136-145 POTASSIUM 2.3 mmol/L LL 3.5-5.1 CHLORIDE 98 mmol/L 98-107 CO2 29 mmol/L 22-29 CALCIUM 8.3 mg/dL L 8.4-10.2 MAGNESIUM 2.2 mg/dL 1.6-2.6 ANION GAP 11 mmol/L 5-15 .CREAT EGFR(CKD-EPI) >90 >60 Apr 24, 2024 07:35 AM [facility] CBC & DIFF Specimen Type: BLOOD Comment: Automated Differential Performed Ordering Provider: AARON VICTOR Report Released Date/Time: Apr 23, 2024 05:30 PM Reporting Lab: [facility] [phone] Performing Lab: [facility] [address] WBC 10.49 10*3/uL 4.0-11.0 RBC 3.83 10*6/uL [...] 0-0.1 Apr 23, 2024 01:20 PM [facility] LACTIC ACID Specimen Type: PLASMA No comment entered. Ordering Provider: AARON VICTOR Report Released Date/Time: Apr 23, 2024 12:05 PM Reporting Lab: [facility] [phone] Performing Lab: [facility] [address] LACTIC ACID 1.5 mmol/L 0.5-2.2 Apr 23, 2024 01:20 PM [facility] PROTHROMBIN TIME/INR Specimen Type: PLASMA No comment entered. Ordering Provider: AARON VICTOR Report Released Date/Time: Apr 23, 2024 12:05 PM Reporting Lab: [facility] [address] Performing Lab: [facility] [address] .INR 1.2 H 0.8-1.1 .PT 14.5 s H 9.4-12.5 Apr 23, 2024 01:20 PM [facility] COMPREHENSIVE METABOLIC PANEL+MG Specimen Type: PLASMA No comment entered. Ordering Provider: AARON VICTOR Report Released Date/Time: Apr 23, 2024 12:05 PM Reporting Lab: [facility] [address] Performing Lab: [facility] [address] CREATININE 0.7 mg/dL 0.7-1.2 UREA NITROGEN 19 [...] >60 Apr 23, 2024 01:20 PM [facility] ACT PART THROMBO TIME Specimen Type: PLASMA No comment entered. Ordering Provider: AARON VICTOR Report Released Date/Time: Apr 23, 2024 12:05 PM Reporting Lab: [facility] [address] Performing Lab: [facility] [address] APTT 29.3 s 25.1-36.5 Apr 23, 2024 01:20 PM [facility] CBC & DIFF Specimen Type: BLOOD Comment: Automated Differential Performed Ordering Provider: AARON VICTOR Report Released Date/Time: Apr 23, 2024 12:05 PM Reporting Lab: [facility] [address] Performing Lab: [facility] [address] WBC 12.50 10*3/uL H 4.0-11.0 RBC 4.07 [...] 0-0.1 Apr 21, 2024 07:28 AM [facility] URINALYSIS Specimen Type: URINE No comment entered. Ordering Provider: ANANDA HUGGINS Report Released Date/Time: Apr 21, 2024 07:37 AM Reporting Lab: [facility] [phone] Performing Lab: [facility] [address] URINE COLOR COLORLESS SPECIFIC GRAVITY 1.009 1.003-1.03 [...] Source Apr 26, 2024 05:15 AM 1 [facility] Apr 26, 2024 05:14 AM 5 [facility] Apr 26, 2024 05:06 AM 1 [facility] Apr 26, 2024 01:29 AM 9 [facility] Apr 26, 2024 01:28 AM 9 [facility] Social History: Smoking Status (Most current) [...] 2023 11:30 AM VA-TOBACCO FORMER USER [facility] Tobacco Use History This section includes a history of the smoking, or tobacco-related health factors, that were collected on or before the date of the Encounter. The data comes from the [place] facility where the Encounter took place. Date/Time Smoking Status/Tobacco Use Comment F acility May 06, 2023 11:30 AM VA-TOBACCO QUIT 15 YRS OR MORE [facility] Jun 04, 2022 09:00 AM VA-TOBACCO FORMER USER [facility] Jun 04, 2022 09:00 AM VA-TOBACCO QUIT 15 YRS OR MORE [facility] Jul 10, 2021 08:00 AM VA-TOBACCO FORMER USER [facility] Jul 10, 2021 08:00 AM VA-TOBACCO QUIT 5 TO < 15 YRS [facility] May 23, 2020 08:30 AM VA-TOBACCO FORMER USER [facility] May 23, 2020 08:30 AM VA-TOBACCO QUIT 5 TO < 15 YRS [facility] Mar 20, 2019 04:03 PM VA-TOBACCO FORMER USER [facility] Mar 20, 2019 04:03 PM VA-TOBACCO QUIT 5 TO < 15 YRS [facility] Mar 21, 2018 08:13 AM FORMER TOBACCO USER 7Y OR GREATE R [facility] Feb 24, 2017 09:24 AM FORMER TOBACCO USER 7Y OR GREATE R [facility] January 07, 2016 08:01 AM FORMER TOBACCO USE >1Y <7Y [facility] Feb 03, 2015 07:58 AM FORMER TOBACCO USE <1Y [facility] Feb 26, 2014 08:41 AM CURRENT TOBACCO USER [facility] May 13, 2011 01:45 PM CURRENT TOBACCO USER [facility] Advance Directives: All historical and current Section Date Range: From patient's date of to the date document was created. This section includes ALL of a patient's completed or amended [place] Advance and Rescinded Directives. The entries below indicate that a directive exists for the patient, but an actual copy is not included with this document. The data comes from all [place] facilities. 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 Palmira Graves MD LAST CREATININE 0.7 (04/23/24) Report Status: Verified Date Reported: APR 24, 2024 Date Verified: APR 24, 2024 Outboard Motorboat Rigger E-Sig:/ES/SADIA DEE MD Report: PROCEDURES: Placement of [...] anesthesia. Using real-time CT fluoroscopy, a 5 Mosotho Yueh catheter was advanced into the collection in the left lower quadrant. A wire was coiled in the collection. The tract into the collection was dilated to accommodate the 12 Mosotho locking pigtail drainage catheter. The catheter was secured to the skin with monofilament suture and connected to JUAN bulb suction. Impression: Successful placement of a 12 Mosotho locking pigtail drainage catheter in the left lower quadrant abscess. This catheter is connected to JUAN bulb suction with flushes, as ordered. I, SADIA DEE, have reviewed the images and report. Primary Interpreting Staff: SADIA DEE MD, RADIOLOGIST (Outboard Motorboat Rigger) Primary Interpreting Resident: JEFFREY FLOWER MD, BARRER AND TACKER /SADIA SNYDER [facility] Apr 24, 2024 02:[address] NEEDLE PLACEMEN T (P): FLACA WEAVER [id number] -1950 M Ex Date: APR 24, 2024@14:11 Req Phys: TAURUS WOOD Loc: 3KS/04-24-2024@16:07 Im Loc: CT IMAGING Service: PRIMARY [place] [address] (Case [id number] COMPLETE) CT SCAN FOR NEEDLE PLACEMENT (CT Detailed) CPT:49290 Reason for Study: diverticular abscess Clinical History: Report Status: Verified Date Reported: APR 24, 2024 Date Verified: APR 24, 2024 Outboard Motorboat Rigger E-Sig:/ES/SADIA DEE MD Report: PROCEDURES: Placement of [...] anesthesia. Using real-time CT fluoroscopy, a 5 Mosotho Yueh catheter was advanced into the collection in the left lower quadrant. A wire was coiled in the collection. The tract into the collection was dilated to accommodate the 12 Mosotho locking pigtail drainage catheter. The catheter was secured to the skin with monofilament suture and connected to JUAN bulb suction. Impression: Successful placement of a 12 Mosotho locking pigtail drainage catheter in the left lower quadrant abscess. This catheter is connected to JUAN bulb suction with flushes, as ordered. I, SADIA DEE, have reviewed the images and report. Primary Interpreting Staff: SADIA DEE MD, RADIOLOGIST (Outboard Motorboat Rigger) Primary Interpreting Resident: JEFFREY FLOWER MD, BARRER AND TACKER /SADIA SNYDER [facility] Apr 23, 2024 06:[address] ABDOMEN/ PELVIS: MEGFLACA YAMIL [id number] -1950 M Exm Date: APR 23, 2024@06:36 Req Phys: FREDDYRICHAGRETCHENMCKAY Sagar Pat Loc: 3K04-24-2024@10:25 [facility] [place]: [place] CT Service: Unknown (Case [id number] COMPLETE) NON [place] CT ABDOMEN/PELVIS (CT Detailed) CPT:92122 Reason for Study: OUTSIDE STUDY Clinical History: [...] Code: VERIFIED BY: / *ELECTRONICALLY FILED* [facility] Pathology Reports: +/- 30 days [...] LR MICROBIOLOGY RE PORT: Reporting Lab: [facility] [CLIA# [id number]] [place] [address] Accession [UID]: [id number] [[id number]] Received: Apr 21, 2024@08:16 Collection sample: URINE Collection date: Apr 21, 2024 07:28 Provider: ANANDA HUGGINS Comment on specimen: RECEIVED IN STERILE CUP Test(s) ordered: CULTURE & SUSCEPTIBILITY...... completed: Apr 22, 2024 * BACTERIOLOGY FINAL REPORT => Apr 22, 2024 08:38 TECH CODE: [id number] CULTURE RESULTS: NO GROWTH 24 HOURS Bacteriology Remark(s): THIS REPORT IS FINAL =--=--=--=--=--=--=--=--=--=--=--=- -=--=--=--=--=--=--=--=--=--=--=--= --=--=-- Performing Laboratory: Bacteriology Report Performed By: [facility] [CLIA# [id number]] [place] [address] [facility]
--- OUTSIDE RECORDS SUMMARY | 2024-05-04 01:08 | XMS_ITS | Encounter Summary ---
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 Date/Time Encounter Type Encounter Description Reason Pro vider Source Apr 26, 2024 01:00 AM Inpatient Visit ADMIN PAT ACTIVTIES ([employer]) SYSTEM,CIS-ARK IHE Encounter Template Text not used [...] 27, 2024 02:30 PM AMBULATORY - NONE [facility] May 02, 2024 10:00 AM AMBULATORY - SURGERY [facility] May 04, 2024 09:00 AM AMBULATORY - NONE [facility] May 07, 2024 08:45 AM AMBULATORY - MEDICINE [facility] May 08, 2024 02:00 PM AMBULATORY - NONE [facility] May 09, 2024 07:30 AM AMBULATORY - SURGERY [facility] May 15, 2024 08:30 AM AMBULATORY - MEDICINE [facility] Active, Pending, and Scheduled Orders This section includes a listing of several types of active, pending, and scheduled orders, including clinic medications orders, diagnostic test orders, procedure orders and consult orders; where the start date of the order is 45 days before the date of the Encounter or 45 days after the date of theEncounter. The data comes from all [facility]. Test Date/Time Test Type Test Details Facility Name Apr 26, 2024 10:10 AM Laboratory - Microbiology Order CULTURE & SUSCEPTIBILITY WOUND OTHER WC ONCE ~For Test: CULTURE & SUSCEPTIBILITY ~Culture sample from JUAN drain output [facility] Apr 26, 2024 10:10 AM Laboratory - Microbiology Order GRAM STAIN WOUND OTHER WC ONCE ~For Test: GRAM STAIN ~JUAN drain culture/gram stain [facility] Apr 27, 2024 02:30 PM Imaging - Ultrasound Order US AORTA (P) [facility] May 04, 2024 12:00 AM Laboratory - Chemistry Order BASIC METABOLIC PANEL+MG PLASMA SP ONCE [facility] May 08, 2024 02:00 PM Imaging - CT Scan Order CT (AP) ABDOMEN/PELVIS (P) LISANDRO [facility] Lab Results: +/- 30 days of the [...] Comment Apr 26, 2024 07:[address] [facility] BASIC METABOLIC PANEL+MG Specimen Type: PLASMA No comment entered. Ordering Provider: JONO RANDOLPH Report Released Date/Time: Apr 25, 2024 02:50 PM Reporting Lab: [facility] [phone] Performing Lab: [facility] [address] CREATININE 0.7 mg/dL 0.7-1.2 UREA NITROGEN 15 mg/dL 8-26 GLUCOSE 106 mg/dL H 70-100 SODIUM 139 mmol/L 136-145 POTASSIUM 3.4 mmol/L L 3.5-5.1 CHLORIDE 105 mmol/L 98-107 CO2 25 mmol/L 22-29 CALCIUM 8.5 mg/dL 8.4-10.2 MAGNESIUM 2.2 mg/dL 1.6-2.6 ANION GAP 9 mmol/L 5-15 .CREAT EGFR(CKD-EPI) >90 >60 Apr 25, 2024 05:[address] [facility] BASIC METABOLIC PANEL+MG Specimen Type: PLASMA No comment entered. Ordering Provider: GIOVANNI ADLER Report Released Date/Time: Apr 25, 2024 05:04 PM Reporting Lab: [facility] [phone] Performing Lab: [facility] [address] CREATININE 0.7 mg/dL 0.7-1.2 UREA NITROGEN 15 mg/dL 8-26 GLUCOSE 104 mg/dL H 70-100 SODIUM 139 mmol/L 136-145 POTASSIUM 3.2 mmol/L L 3.5-5.1 CHLORIDE 103 mmol/L 98-107 CO2 28 mmol/L 22-29 CALCIUM 8.5 mg/dL 8.4-10.2 MAGNESIUM 2.2 mg/dL 1.6-2.6 ANION GAP 8 mmol/L 5-15 .CREAT EGFR(CKD-EPI) >90 >60 Apr 25, 2024 07:[address] [facility] BASIC METABOLIC PANEL+MG Specimen Type: PLASMA No comment entered. Ordering Provider: GIOVANNI ADLER Report Released Date/Time: Apr 24, 2024 12:37 PM Reporting Lab: [facility] [phone] Performing Lab: [facility] [phone] CREATININE 0.7 mg/dL 0.7-1.2 UREA NITROGEN 14 mg/dL 8-26 GLUCOSE 127 mg/dL H 70-100 SODIUM 139 mmol/L 136-145 POTASSIUM 2.9 mmol/L L 3.5-5.1 CHLORIDE 101 mmol/L 98-107 CO2 29 mmol/L 22-29 CALCIUM 8.7 mg/dL 8.4-10.2 MAGNESIUM 2.3 mg/dL 1.6-2.6 ANION GAP 9 mmol/L 5-15 .CREAT EGFR(CKD-EPI) >90 >60 Apr 24, 2024 04:[address] [facility] BASIC METABOLIC PANEL+MG Specimen Type: PLASMA No comment entered. Ordering Provider: GIOVANNI ADLER Report Released Date/Time: Apr 24, 2024 12:37 PM Reporting Lab: [facility] [phone] Performing Lab: [facility] [address] CREATININE 0.7 mg/dL 0.7-1.2 UREA NITROGEN 16 mg/dL 8-26 GLUCOSE 97 mg/dL 70-100 SODIUM 138 mmol/L 136-145 POTASSIUM 2.7 mmol/L L 3.5-5.1 CHLORIDE 99 mmol/L 98-107 CO2 30 mmol/L H 22-29 CALCIUM 8.4 mg/dL 8.4-10.2 MAGNESIUM 2.1 mg/dL 1.6-2.6 ANION GAP 9 mmol/L 5-15 .CREAT EGFR(CKD-EPI) >90 >60 Apr 24, 2024 07:[address] [facility] BASIC METABOLIC PANEL+MG Specimen Type: PLASMA Comment: Critical Value Reported To: Cait Zamorano RN 04-24-24@[address] [place] [address]. Critical value report confirmed. Ordering Provider: AARON VICTOR Report Released Date/Time: Apr 23, 2024 05:30 PM Reporting Lab: [facility] [phone] Performing Lab: [facility] [address] CREATININE 0.7 mg/dL 0.7-1.2 UREA NITROGEN 16 mg/dL 8-26 GLUCOSE 105 mg/dL H 70-100 SODIUM 138 mmol/L 136-145 POTASSIUM 2.3 mmol/L LL 3.5-5.1 CHLORIDE 98 mmol/L 98-107 CO2 29 mmol/L 22-29 CALCIUM 8.3 mg/dL L 8.4-10.2 MAGNESIUM 2.2 mg/dL 1.6-2.6 ANION GAP 11 mmol/L 5-15 .CREAT EGFR(CKD-EPI) >90 >60 Apr 24, 2024 07:[address] [facility] CBC & DIFF Specimen Type: BLOOD Comment: Automated Differential Performed Ordering Provider: AARON VICTOR Report Released Date/Time: Apr 23, 2024 05:30 PM Reporting Lab: [facility] [phone] Performing Lab: [facility] [address] WBC 10.49 10*3/uL 4.0-11.0 RBC 3.83 10*6/uL [...] 0-0.1 Apr 23, 2024 01:[address] [facility] LACTIC ACID Specimen Type: PLASMA No comment entered. Ordering Provider: AARON VICTOR Report Released Date/Time: Apr 23, 2024 12:05 PM Reporting Lab: [facility] [address] Performing Lab: [facility] [address] LACTIC ACID 1.5 mmol/L 0.5-2.2 Apr 23, 2024 01:[address] [facility] ACT PART THROMBO TIME Specimen Type: PLASMA No comment entered. Ordering Provider: AARON VICTOR Report Released Date/Time: Apr 23, 2024 12:05 PM Reporting Lab: [facility] [address] Performing Lab: [facility] [address] APTT 29.3 s 25.1-36.5 Apr 23, 2024 01:[address] [facility] PROTHROMBIN TIME/INR Specimen Type: PLASMA No comment entered. Ordering Provider: AARON VICTOR Report Released Date/Time: Apr 23, 2024 12:05 PM Reporting Lab: [facility] [address] Performing Lab: [facility] [address] .INR 1.2 H 0.8-1.1 .PT 14.5 s H 9.4-12.5 Apr 23, 2024 01:[address] [facility] COMPREHENSIVE METABOLIC PANEL+MG Specimen Type: PLASMA No comment entered. Ordering Provider: AARON VICTOR Report Released Date/Time: Apr 23, 2024 12:05 PM Reporting Lab: [facility] [address] Performing Lab: [facility] [address] CREATININE 0.7 mg/dL 0.7-1.2 UREA NITROGEN 19 [...] >60 Apr 23, 2024 01:[address] [facility] CBC & DIFF Specimen Type: BLOOD Comment: Automated Differential Performed Ordering Provider: AARON VICTOR Report Released Date/Time: Apr 23, 2024 12:05 PM Reporting Lab: [facility] [address] Performing Lab: [facility] [address] WBC 12.50 10*3/uL H 4.0-11.0 RBC 4.07 [...] 0-0.1 Apr 21, 2024 07:[address] [facility] URINALYSIS Specimen Type: URINE No comment entered. Ordering Provider: ANANDA HUGGINS Report Released Date/Time: Apr 21, 2024 07:37 AM Reporting Lab: [facility] [phone] Performing Lab: [facility] [address] URINE COLOR COLORLESS SPECIFIC GRAVITY 1.009 1.003-1.03 [...] Source Apr 26, 2024 05:[address] [facility] Apr 26, 2024 05:[address] [facility] Apr 26, 2024 05:[address] [facility] Apr 26, 2024 01:[address] [facility] Apr 26, 2024 01:28 AM 9 [facility] Social History: Smoking Status (Most [...] 2023 11:30 AM VA-TOBACCO FORMER USER [facility] Tobacco Use History This section includes a history of the smoking, or tobacco-related health factors, that were collected on or before the date of the Encounter. The data comes from the [place] facility where the Encounter took place. Date/Time Smoking Status/Tobacco Use Comment F acility May 06, 2023 11:30 AM VA-TOBACCO QUIT [address] [facility] Jun 04, 2022 09:00 AM VA-TOBACCO FORMER USER [facility] Jun 04, 2022 09:00 AM VA-TOBACCO QUIT [address] [facility] Jul 10, 2021 08:00 AM VA-TOBACCO FORMER USER [facility] Jul 10, 2021 08:00 AM VA-TOBACCO QUIT 5 TO < [address] [facility] May 23, 2020 08:30 AM VA-TOBACCO FORMER USER [facility] May 23, 2020 08:30 AM VA-TOBACCO QUIT 5 TO < [address] [facility] Mar 20, 2019 04:03 PM VA-TOBACCO FORMER USER [facility] Mar 20, 2019 04:03 PM VA-TOBACCO QUIT 5 TO < [address] [facility] Mar 21, 2018 08:13 AM FORMER TOBACCO USER 7Y OR GREATE R [facility] Feb 24, 2017 09:24 AM FORMER TOBACCO USER 7Y OR GREATE R [facility] January 07, 2016 08:01 AM FORMER TOBACCO USE >1Y <7Y [facility] Feb 03, 2015 07:58 AM FORMER TOBACCO USE <1Y [facility] Feb 26, 2014 08:41 AM CURRENT TOBACCO USER [facility] May 13, 2011 01:45 PM CURRENT TOBACCO USER [facility] Advance Directives: All historical and current Section [...] Mar 23, 2016 [facility] Radiology Reports: +/- 30 days of [...] DRAIN PLAC EMENT PERITONEAL (P): FLACA WEAVER [id number] -1950 M Exm Date: APR 24, 2024@14:13 Req Phys: TAURUS WOOD Pat Loc: 3K04-24-2024@16:07 Img Loc: INTERVENTIONAL RADIOLOGY Service: PRIMARY CARE [place] [address] (Case [id number] COMPLETE) IR PERITONEAL/RETROPERITONEAL PER(ANI Detailed) CPT:16606 Reason for Study: diverticular abscess Clinical History: IS NOT under investigation for COVID-19 or is COVID-19 negative 73yo M with hx of recurrent diverticulitis, transferred from [facility] 04/[address] 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 Palmira Graves MD LAST CREATININE 0.7 (04/23/24) Report Status: Verified Date Reported: APR 24, 2024 Date Verified: APR 24, 2024 Academic Interventionist E-Sig:/ES/SADIA DEE MD Report: PROCEDURES: Placement of [...] Primary Interpreting Staff: SADIA DEE MD, RADIOLOGIST (Academic Interventionist) Primary Interpreting Resident: JEFFREY FLOWER MD, GUARDIAN AD LITEM /SADIA SNYDER [facility] Apr 24, 2024 02:[address] NEEDLE PLACEMEN T (P): FLACA WEAVER [id number] -1950 M Exm Date: APR 24, 2024@14:11 Req Phys: TAURUS WOOD Loc: 3KS04-24-2024@16:07 Im Loc: CT IMAGING Service: PRIMARY CARE [place] [address] (Case [id number] COMPLETE) CT SCAN FOR NEEDLE PLACEMENT (CT Detailed) CPT:84137 Reason for Study: diverticular abscess Clinical History: Report Status: Verified Date Reported: APR 24, 2024 Date Verified: APR 24, 2024 Academic Interventionist E-Sig:/ES/SADIA DEE MD Report: PROCEDURES: Placement of [...] Primary Interpreting Staff: SADIA DEE MD, RADIOLOGIST (Academic Interventionist) Primary Interpreting Resident: JEFFREY FLOWER MD, GUARDIAN AD LITEM /SADIA SNYDER [facility] Apr 23, 2024 06:[address] ABDOMEN/ PELVIS: FLACA WEAVER [id number] -1950 M Exm Date: APR 23, 2024@06:36 Req Phys: MCKAY VICTOR Loc: 04-24-2024@10:25 [facility] Loc: OUTSOURCE CT Service: Unknown (Case [id number] COMPLETE) NON VA CT ABDOMEN/PELVIS (CT Detailed) CPT:11621 Reason for Study: OUTSIDE STUDY Clinical History: [...] Code: VERIFIED BY: / *ELECTRONICALLY FILED* [facility] Pathology Reports: +/- 30 days of the [...] LR MICROBIOLOGY RE PORT: Reporting Lab: [facility] [CLIA# [id number]] [place] [address] Accession [UID]: [id number] [[id number]] Received: Apr 21, 2024@08:16 Collection sample: URINE Collection date: Apr 21, 2024 07:28 Provider: ANANDA HUGGINS Comment on specimen: RECEIVED IN STERILE CUP Test(s) ordered: CULTURE & SUSCEPTIBILITY...... completed: Apr 22, 2024 * BACTERIOLOGY FINAL REPORT => Apr 22, 2024 08:38 TECH CODE: [id number] CULTURE RESULTS: NO GROWTH 24 HOURS Bacteriology Remark(s): THIS REPORT IS FINAL =--=--=--=--=--=--=--=--=--=--=--=- -=--=--=--=--=--=--=--=--=--=--=--= --=--=-- Performing Laboratory: Bacteriology Report Performed By: [facility] [CLIA# [id number]] [address] [place] [address] [facility] Encounter Notes: All associated encounter notes This section contains the clinical notes associated to the Encounter. Date/Time Encounter Note(s) Provider Source Apr 26, 2024 01:00 AM CRITICAL CARE UNIT NOTE: LOCAL TITLE: [facility] INPATIENT FLOWSHEET STANDARD TITLE: CRITICAL CARE UNIT NOTE DATE OF NOTE: APR 26, 2024@01:00 ENTRY DATE: APR 27, 2024@14:39:15 AUTHOR: PETERSONAzima EXP COSIGNER: URGENCY: STATUS: COMPLETED This is a place aranda only. Please see [employer] to view document. /es/ [employer] SYSTEM ICU DOCUMENT IMPORT Signed: 04/27/2024 14:39 [address] [facility] Apr 26, 2024 01:00 AM CRITICAL CARE UNIT NOTE: LOCAL TITLE: [facility] RESPIRATORY THERAPY FLOWSHEET STANDARD TITLE: CRITICAL CARE UNIT NOTE DATE OF NOTE: APR 26, 2024@01:00 ENTRY DATE: APR 27, 2024@15:11:09 AUTHOR: PETERSONLinkMeGlobal-[employer]valiant EXP COSIGNER: URGENCY: STATUS: COMPLETED This is a place aranda only. Please see [employer] Post to view document. /es/ [employer] SYSTEM ICU DOCUMENT IMPORT Signed: 04/27/2024 15:[address] [facility]
--- OUTSIDE RECORDS SUMMARY | 2024-05-04 01:09 | XMS_ITS | Encounter Summary ---
Author Name [facility] [place] [facility] [place] [facility] [place] Address [address] [place] [address] Care Team Providers Care Aerospace Quality Engineer Name Role Phone JATINDER BENITEZ Primary Care [...] PART A Sep 29, 2016 PART A [id number] JUDY WEAVER PATIENT Selected Encounter This section includes the information on record at [place] for the Encounter. Date/Time Encounter Type Encounter Description Reason Pro vider Source May 01, 2024 07:40 PM Outpatient Encounter ADMIN PAT ACTIVTIES (MASNONCT) IHE Encounter Template Text not used by [place] Plan of Treatment: Future Appointments (+ 6 months) and Future Tests (+/- 45 days) The Plan of Treatment section includes future care activities for the patient from all [place] treatmentfacilities. This section includes future appointments and future orders which are active, pending or scheduled. Future Appointments This section includes appointments that were scheduled to occur 6 months from the date of the Encounter, up to a maximum of 20 appointments. The data comes from all [place] treatment facilities. Appointment Date/Time Appointment Type Appointme nt Facility Name May 02, 2024 10:00 AM AMBULATORY - SURGERY [facility] May 04, 2024 09:00 AM AMBULATORY - NONE [facility] May 07, 2024 08:45 AM [facility] May 08, 2024 02:00 PM [facility] May 09, 2024 07:30 AM AMBULATORY - SURGERY [facility] May 15, 2024 08:30 AM AMBULATORY - MEDICINE [facility] Active, Pending, and Scheduled Orders This section includes a listing of several types of active, pending, and scheduled orders, including clinic medications orders, diagnostic test orders, procedure orders and consult orders; where the start date of the order is 45 days before the date of the Encounter or 45 days after the date of theEncounter. The data comes from all [place] treatment [facility]. Test Date/Time Test Type Test Details Facility Name Apr 26, 2024 10:10 AM Laboratory - Microbiology Order CULTURE & SUSCEPTIBILITY WOUND OTHER WC ONCE ~For Test: CULTURE & SUSCEPTIBILITY ~Culture sample from JUAN drain output [facility] Apr 26, 2024 10:10 AM Laboratory - Microbiology Order GRAM STAIN WOUND OTHER WC ONCE ~For Test: GRAM STAIN ~JUAN drain culture/gram stain [facility] Apr 27, 2024 02:30 PM Imaging - Ultrasound Order US AORTA (P) [facility] May 04, 2024 12:00 AM Laboratory - Chemistry Order BASIC METABOLIC PANEL+MG PLASMA SP ONCE [facility] May 08, 2024 02:00 PM Imaging - CT Scan Order CT (AP) ABDOMEN/PELVIS (P) LISANDRO [facility] Lab Results: +/- 30 days of the encounter This section includes the Chemistry and Hematology Lab Results on record with [place] for the patient. Radiology Reports and Pathology Reports are provided separately, in subsequent sections. Lab Results This section contains the Chemistry/Hematology Results that were resulted 30 days before or 30 daysafter the date of the Encounter. Date/Time Source Result Type Result - Unit Interpretation Reference Range Comment Apr 26, 2024 07:16 AM [facility] BASIC METABOLIC PANEL+MG Specimen Type: PLASMA No comment entered. Ordering Provider: JONO RANDOLPH Report Released Date/Time: Apr 25, 2024 02:50 PM Reporting Lab: [facility] [address] [facility] [address] Performing Lab: [facility] [address] CREATININE 0.7 mg/dL 0.7-1.2 UREA NITROGEN 15 mg/dL 8-26 GLUCOSE 106 mg/dL H 70-100 SODIUM 139 mmol/L 136-145 POTASSIUM 3.4 mmol/L L 3.5-5.1 CHLORIDE 105 mmol/L 98-107 CO2 25 mmol/L 22-29 CALCIUM 8.5 mg/dL 8.4-10.2 MAGNESIUM 2.2 mg/dL 1.6-2.6 ANION GAP 9 mmol/L 5-15 .CREAT EGFR(CKD-EPI) >90 >60 Apr 25, 2024 05:10 PM [facility] BASIC METABOLIC PANEL+MG Specimen Type: PLASMA No comment entered. Ordering Provider: GIOVANNI ADLER Report Released Date/Time: Apr 25, 2024 05:04 PM Reporting Lab: [facility] [address] Performing Lab: [facility] [phone] CREATININE 0.7 mg/dL 0.7-1.2 UREA NITROGEN 15 mg/dL 8-26 GLUCOSE 104 mg/dL H 70-100 SODIUM 139 mmol/L 136-145 POTASSIUM 3.2 mmol/L L 3.5-5.1 CHLORIDE 103 mmol/L 98-107 CO2 28 mmol/L 22-29 CALCIUM 8.5 mg/dL 8.4-10.2 MAGNESIUM 2.2 mg/dL 1.6-2.6 ANION GAP 8 mmol/L 5-15 .CREAT EGFR(CKD-EPI) >90 >60 Apr 25, 2024 07:46 AM [facility] BASIC METABOLIC PANEL+MG Specimen Type: PLASMA No comment entered. Ordering Provider: GIOVANNI ADLER Report Released Date/Time: Apr 24, 2024 12:37 PM Reporting Lab: [facility] [phone] Performing Lab: [facility] [address] CREATININE 0.7 mg/dL 0.7-1.2 UREA NITROGEN 14 mg/dL 8-26 GLUCOSE 127 mg/dL H 70-100 SODIUM 139 mmol/L 136-145 POTASSIUM 2.9 mmol/L L 3.5-5.1 CHLORIDE 101 mmol/L 98-107 CO2 29 mmol/L 22-29 CALCIUM 8.7 mg/dL 8.4-10.2 MAGNESIUM 2.3 mg/dL 1.6-2.6 ANION GAP 9 mmol/L 5-15 .CREAT EGFR(CKD-EPI) >90 >60 Apr 24, 2024 04:42 PM [facility] BASIC METABOLIC PANEL+MG Specimen Type: PLASMA No comment entered. Ordering Provider: GIOVANNI ADLER Report Released Date/Time: Apr 24, 2024 12:37 PM Reporting Lab: [facility] [phone] Performing Lab: [facility] [address] CREATININE 0.7 mg/dL 0.7-1.2 UREA NITROGEN 16 mg/dL 8-26 GLUCOSE 97 mg/dL 70-100 SODIUM 138 mmol/L 136-145 POTASSIUM 2.7 mmol/L L 3.5-5.1 CHLORIDE 99 mmol/L 98-107 CO2 30 mmol/L H 22-29 CALCIUM 8.4 mg/dL 8.4-10.2 MAGNESIUM 2.1 mg/dL 1.6-2.6 ANION GAP 9 mmol/L 5-15 .CREAT EGFR(CKD-EPI) >90 >60 Apr 24, 2024 07:36 AM [facility] BASIC METABOLIC PANEL+MG Specimen Type: PLASMA Comment: Critical Value Reported To: Cait Zamorano RN 04-24-24@[address] [place] [address]. Critical value report confirmed. Ordering Provider: AARON VICTOR Report Released Date/Time: Apr 23, 2024 05:30 PM Reporting Lab: [facility] [address] Performing Lab: [facility] [phone] CREATININE 0.7 mg/dL 0.7-1.2 UREA NITROGEN 16 mg/dL 8-26 GLUCOSE 105 mg/dL H 70-100 SODIUM 138 mmol/L 136-145 POTASSIUM 2.3 mmol/L LL 3.5-5.1 CHLORIDE 98 mmol/L 98-107 CO2 29 mmol/L 22-29 CALCIUM 8.3 mg/dL L 8.4-10.2 MAGNESIUM 2.2 mg/dL 1.6-2.6 ANION GAP 11 mmol/L 5-15 .CREAT EGFR(CKD-EPI) >90 >60 Apr 24, 2024 07:35 AM [facility] CBC & DIFF Specimen Type: BLOOD Comment: Automated Differential Performed Ordering Provider: AARON VICTOR Report Released Date/Time: Apr 23, 2024 05:30 PM Reporting Lab: [facility] [address] Performing Lab: [facility] [address] WBC 10.49 10*3/uL 4.0-11.0 RBC 3.83 10*6/uL [...] 10*3/uL 0-0.1 Apr 23, 2024 01:20 PM [facility] LACTIC ACID Specimen Type: PLASMA No comment entered. Ordering Provider: AARON VICTOR Report Released Date/Time: Apr 23, 2024 12:05 PM Reporting Lab: [facility] [address] Performing Lab: [facility] [phone] LACTIC ACID 1.5 mmol/L 0.5-2.2 Apr 23, 2024 01:20 PM [facility] ACT PART THROMBO TIME Specimen Type: PLASMA No comment entered. Ordering Provider: AARON VICTOR Report Released Date/Time: Apr 23, 2024 12:05 PM Reporting Lab: [facility] [address] Performing Lab: [facility] [address] APTT 29.3 s 25.1-36.5 Apr 23, 2024 01:20 PM [facility] PROTHROMBIN TIME/INR Specimen Type: PLASMA No comment entered. Ordering Provider: AARON VICTOR Report Released Date/Time: Apr 23, 2024 12:05 PM Reporting Lab: [facility] [address] Performing Lab: [facility] [address] .INR 1.2 H 0.8-1.1 .PT 14.5 s H 9.4-12.5 Apr 23, 2024 01:20 PM [facility] COMPREHENSIVE METABOLIC PANEL+MG Specimen Type: PLASMA No comment entered. Ordering Provider: AARON VICTOR Report Released Date/Time: Apr 23, 2024 12:05 PM Reporting Lab: [facility] [address] Performing Lab: [facility] [address] CREATININE 0.7 mg/dL 0.7-1.2 UREA NITROGEN 19 [...] >90 >60 Apr 23, 2024 01:20 PM [facility] CBC & DIFF Specimen Type: BLOOD Comment: Automated Differential Performed Ordering Provider: AARON VICTOR Report Released Date/Time: Apr 23, 2024 12:05 PM Reporting Lab: [facility] [address] Performing Lab: [facility] [address] WBC 12.50 10*3/uL H 4.0-11.0 RBC 4.07 [...] 10*3/uL 0-0.1 Apr 21, 2024 07:28 AM [facility] URINALYSIS Specimen Type: URINE No comment entered. Ordering Provider: ANANDA HUGGINS Report Released Date/Time: Apr 21, 2024 07:37 AM Reporting Lab: [facility] [address] Performing Lab: [facility] [address] URINE COLOR COLORLESS SPECIFIC GRAVITY 1.009 1.003-1.03 [...] 2023 11:30 AM VA-TOBACCO FORMER USER [facility] Tobacco Use History This section includes a history of the smoking, or tobacco-related health factors, that were collected on or before the date of the Encounter. The data comes from the [place] facility where the Encounter took place. Date/Time Smoking Status/Tobacco Use Comment F acility May 06, 2023 11:30 AM VA-TOBACCO QUIT 15 YRS OR MORE [facility] Jun 04, 2022 09:00 AM VA-TOBACCO FORMER USER [facility] Jun 04, 2022 09:00 AM VA-TOBACCO QUIT 15 YRS OR MORE [facility] Jul 10, 2021 08:00 AM VA-TOBACCO FORMER USER [facility] Jul 10, 2021 08:00 AM VA-TOBACCO QUIT 5 TO < 15 YRS [facility] May 23, 2020 08:30 AM VA-TOBACCO FORMER USER [facility] May 23, 2020 08:30 AM VA-TOBACCO QUIT 5 TO < 15 YRS [facility] Mar 20, 2019 04:03 PM VA-TOBACCO FORMER USER [facility] Mar 20, 2019 04:03 PM VA-TOBACCO QUIT 5 TO < 15 YRS [facility] Mar 21, 2018 08:13 AM FORMER TOBACCO USER 7Y OR GREATE R [facility] Feb 24, 2017 09:24 AM FORMER TOBACCO USER 7Y OR GREATE R [facility] January 07, 2016 08:01 AM FORMER TOBACCO USE >1Y <7Y [facility] Feb 03, 2015 07:58 AM FORMER TOBACCO USE <1Y [facility] Feb 26, 2014 08:41 AM CURRENT TOBACCO USER [facility] May 13, 2011 01:45 PM CURRENT TOBACCO USER [facility] Advance Directives: All historical and current Section Date Range: From patient's date of to the date document was created. This section includes ALL of a patient's completed or amended [place] Advance and Rescinded Directives. The entries below indicate that a directive exists for the patient, but an actual copy is not included with this document. The data comes from all [place] facilities. Date Advance Directives Provider Source Mar 23, 2016 CLINICAL WARNING [facility] Radiology Reports: +/- 30 days [...] DRAIN PLAC EMENT PERITONEAL (P): FLACA WEAVER [id number] -1950 M Exm Date: APR 24, 2024@14:13 Req Phys: TAURUS WOOD Loc: 3KS/04-24-2024@16:07 Img Loc: INTERVENTIONAL RADIOLOGY Service: PR[place] [address] (Case [id number] COMPLETE) IR PERITONEAL/RETROPERITONEAL PER(ANI Detailed) CPT:40234 Reason for Study: diverticular abscess Clinical History: Sikes IS NOT under investigation for COVID-19 or is COVID-19 negative 73yo M with hx of recurrent diverticulitis, transferred from H 04/[address] 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 Palmira Graves MD LAST CREATININE 0.7 (04/23/24) Report Status: Verified Date Reported: APR 24, 2024 Date Verified: APR 24, 2024 Water Leak Repairer E-Sig:/ES/SADIA DEE MD Report: PROCEDURES: Placement [...] anesthesia. Using real-time CT fluoroscopy, a 5 Beninese [employer]us Medical[employer] catheter was advanced into the collection in the left lower quadrant. A wire was coiled in the collection. The tract into the collection was dilated to accommodate the 12 Beninese locking pigtail drainage catheter. The catheter was secured to the skin with monofilament suture and connected to JUAN bulb suction. Impression: Successful placement of a 12 Beninese locking pigtail drainage catheter in the left lower quadrant abscess. This catheter is connected to JUAN bulb suction with flushes, as ordered. I, SADIA DEE, have reviewed the images and report. Primary Interpreting Staff: SADIA DEE MD, RADIOLOGIST (Water Leak Repairer) Primary Interpreting Resident: JEFFREY FLOWER MD, RESTAURANT INSPECTOR /SADIA SNYDER [facility] Apr 24, 2024 02:[address] NEEDLE PLACEMEN T (P): FLACA WEAVER [id number] -1950 M Ex Date: APR 24, 2024@14:11 Req Phys: TAURUS WOOD Loc: 3K04-24-2024@16:07 Img Loc: CT IMAGING Service: [place] [address] (Case [id number] COMPLETE) CT SCAN FOR NEEDLE PLACEMENT (CT Detailed) CPT:19182 Reason for Study: diverticular abscess Clinical History: Report Status: Verified Date Reported: APR 24, 2024 Date Verified: APR 24, 2024 Water Leak Repairer E-Sig:/ES/SADIA DEE MD Report: PROCEDURES: Placement [...] anesthesia. Using real-time CT fluoroscopy, a 5 Beninese Yueh catheter was advanced into the collection in the left lower quadrant. A wire was coiled in the collection. The tract into the collection was dilated to accommodate the 12 Beninese locking pigtail drainage catheter. The catheter was secured to the skin with monofilament suture and connected to JUAN bulb suction. Impression: Successful placement of a 12 Beninese locking pigtail drainage catheter in the left lower quadrant abscess. This catheter is connected to JUAN bulb suction with flushes, as ordered. I, SADIA DEE, have reviewed the images and report. Primary Interpreting Staff: SADIA DEE MD, RADIOLOGIST (Water Leak Repairer) Primary Interpreting Resident: JEFFREY FLOWER MD, RESTAURANT INSPECTOR /SADIA SNYDER [facility] Apr 23, 2024 06:[address] ABDOMEN/ PELVIS: FLACA WEAVER [id number] -1950 Ex Date: APR 23, 2024@06:36 Req Phys: MCKAY VICTOR Loc: 04-24-2024@10:25 Img Loc: OUTSOURCE CT Service: Unknown (Case [id number] COMPLETE) NON [place] CT ABDOMEN/PELVIS (CT Detailed) CPT:33710 Reason for Study: OUTSIDE STUDY Clinical History: OUTSIDE STUDY Report Status: Electronically Filed Date Reported: APR 24, 2024 Report: This is an outside Imaging study and/or report imported for continuity of patient care. This Imaging study and/or report was not reviewed or verified by a [place] Radiologist. Impression: This is an outside Imaging study and/or report imported for continuity of patient care. This Imaging study and/or report was not reviewed or verified by a [place] Radiologist. Primary Diagnostic Code: VERIFIED BY: / *ELECTRONICALLY FILED* [facility] Pathology Reports: +/- 30 days [...] comes from all [place] treatment facilities. Date/Time Pathology Report Provider Source Apr 21, 2024 07:28 AM LR MICROBIOLOGY RE PORT: Reporting Lab: [facility] [CLIA# [id number]] [place] [address] Accession [UID]: [id number] [[id number]] Received: Apr 21, 2024@08:16 Collection sample: URINE Collection date: Apr 21, 2024 07:28 Provider: ANANDA HUGGINS Comment on specimen: RECEIVED IN STERILE CUP Test(s) ordered: CULTURE & SUSCEPTIBILITY...... completed: Apr 22, 2024 * BACTERIOLOGY FINAL REPORT => Apr 22, 2024 08:38 TECH CODE: [id number] CULTURE RESULTS: NO GROWTH 24 HOURS Bacteriology Remark(s): THIS REPORT IS FINAL =--=--=--=--=--=--=--=--=--=--=--=- -=--=--=--=--=--=--=--=--=--=--=--= --=--=-- Performing Laboratory: Bacteriology Report Performed By: [facility] [CLIA# [id number]] [place] [address] [facility] Encounter Notes: All associated encounter notes This section contains the clinical notes associated to the Encounter. Date/Time Encounter Note(s) Provider Source Apr 26, 2024 07:40 PM SCANNED REPORT: LOCAL TITLE: TELEMETRY RHYTHM STRIPS STANDARD TITLE: SCANNED REPORT DATE OF NOTE: APR 26, 2024@19:40 ENTRY DATE: MAY 01, 2024@19:41:11 AUTHOR: TALIB MACKEY EXP COSIGNER: URGENCY: STATUS: COMPLETED see [facility]. /es/ TALIB MACKEY Home Health Aide Signed: 05/01/2024 19:41 TALIB MACKEY [facility]
--- OUTSIDE RECORDS SUMMARY | 2024-05-04 01:09 | XMS_ITS | Encounter Summary ---
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 Date/Time Encounter Type Encounter Description Reason Provider Source Apr 29, 2024 07:37 AM Outpatient Encounter TELEPHONE TRIAGE JOSE MIGUEL GREWAL Alex Encounter Template Text not used by [place] [...] 20 appointments. The data comes from all [place] treatment facilities. Appointment Date/Time Appointment Type Appointme nt Facility Name May 02, 2024 10:00 AM AMBULATORY - SURGERY [facility] May 04, 2024 09:00 AM AMBULATORY - NONE [facility] May 07, 2024 08:45 AM AMBULATORY - MEDICINE [facility] May 08, 2024 02:00 PM [facility] May 09, 2024 07:30 AM AMBULATORY - SURGERY [facility] May 15, 2024 08:30 AM AMBULATORY - MEDICINE [facility] Active, Pending, and Scheduled Orders This section includes a listing of several types of active, pending, and scheduled orders, including clinic medications orders, diagnostic test orders, procedure orders and consult orders; where the start date of the order is 45 days before the date of the Encounter or 45 days after the date of theEncounter. The data comes from all [place] treatment facilities. Test Date/Time Test Type Test Details Facility Name Apr 26, 2024 10:10 AM Laboratory - Microbiology Order CULTURE & SUSCEPTIBILITY WOUND OTHER WC ONCE ~For Test: CULTURE & SUSCEPTIBILITY ~Culture sample from JUAN drain output [facility] Apr 26, 2024 10:10 AM Laboratory - Microbiology Order GRAM STAIN WOUND OTHER WC ONCE ~For Test: GRAM STAIN ~JUAN drain culture/gram stain [facility] Apr 27, 2024 02:30 PM Imaging - Ultrasound Order US AORTA (P) [facility] May 04, 2024 12:00 AM Laboratory - Chemistry Order BASIC METABOLIC PANEL+MG PLASMA SP ONCE [facility] May 08, 2024 02:00 PM Imaging - CT Scan Order CT (AP) ABDOMEN/PELVIS (P) LISANDRO [facility] Lab Results: +/- 30 days [...] Range Comment Apr 26, 2024 07:16 AM [facility] BASIC METABOLIC PANEL+MG Specimen Type: PLASMA No comment entered. Ordering Provider: JONO RANDOLPH Report Released Date/Time: Apr 25, 2024 02:50 PM Reporting Lab: [facility] [phone] Performing Lab: [facility] [address] CREATININE 0.7 mg/dL 0.7-1.2 UREA NITROGEN 15 mg/dL 8-26 GLUCOSE 106 mg/dL H 70-100 SODIUM 139 mmol/L 136-145 POTASSIUM 3.4 mmol/L L 3.5-5.1 CHLORIDE 105 mmol/L 98-107 CO2 25 mmol/L 22-29 CALCIUM 8.5 mg/dL 8.4-10.2 MAGNESIUM 2.2 mg/dL 1.6-2.6 ANION GAP 9 mmol/L 5-15 .CREAT EGFR(CKD-EPI) >90 >60 Apr 25, 2024 05:10 PM [facility] BASIC METABOLIC PANEL+MG Specimen Type: PLASMA No comment entered. Ordering Provider: GIOVANNI ADLER Report Released Date/Time: Apr 25, 2024 05:04 PM Reporting Lab: [facility] [address] Performing Lab: [facility] [address] CREATININE 0.7 mg/dL 0.7-1.2 UREA NITROGEN 15 mg/dL 8-26 GLUCOSE 104 mg/dL H 70-100 SODIUM 139 mmol/L 136-145 POTASSIUM 3.2 mmol/L L 3.5-5.1 CHLORIDE 103 mmol/L 98-107 CO2 28 mmol/L 22-29 CALCIUM 8.5 mg/dL 8.4-10.2 MAGNESIUM 2.2 mg/dL 1.6-2.6 ANION GAP 8 mmol/L 5-15 .CREAT EGFR(CKD-EPI) >90 >60 Apr 25, 2024 07:46 AM [facility] BASIC METABOLIC PANEL+MG Specimen Type: PLASMA No comment entered. Ordering Provider: GIOVANNI ADLER Report Released Date/Time: Apr 24, 2024 12:37 PM Reporting Lab: [facility] [address] Performing Lab: [facility] [address] CREATININE 0.7 mg/dL 0.7-1.2 UREA NITROGEN 14 mg/dL 8-26 GLUCOSE 127 mg/dL H 70-100 SODIUM 139 mmol/L 136-145 POTASSIUM 2.9 mmol/L L 3.5-5.1 CHLORIDE 101 mmol/L 98-107 CO2 29 mmol/L 22-29 CALCIUM 8.7 mg/dL 8.4-10.2 MAGNESIUM 2.3 mg/dL 1.6-2.6 ANION GAP 9 mmol/L 5-15 .CREAT EGFR(CKD-EPI) >90 >60 Apr 24, 2024 04:42 PM [facility] BASIC METABOLIC PANEL+MG Specimen Type: PLASMA No comment entered. Ordering Provider: GIOVANNI ADLER Report Released Date/Time: Apr 24, 2024 12:37 PM Reporting Lab: [facility] [address] Performing Lab: [facility] [address] CREATININE 0.7 mg/dL 0.7-1.2 UREA NITROGEN 16 mg/dL 8-26 GLUCOSE 97 mg/dL 70-100 SODIUM 138 mmol/L 136-145 POTASSIUM 2.7 mmol/L L 3.5-5.1 CHLORIDE 99 mmol/L 98-107 CO2 30 mmol/L H 22-29 CALCIUM 8.4 mg/dL 8.4-10.2 MAGNESIUM 2.1 mg/dL 1.6-2.6 ANION GAP 9 mmol/L 5-15 .CREAT EGFR(CKD-EPI) >90 >60 Apr 24, 2024 07:36 AM [facility] BASIC METABOLIC PANEL+MG Specimen Type: PLASMA Comment: Critical Value Reported To: Cait Zamorano RN 04-24-24@[address] [place] [address]. Critical value report confirmed. Ordering Provider: AARON VICTOR Report Released Date/Time: Apr 23, 2024 05:30 PM Reporting Lab: [facility] [address] Performing Lab: [facility] [address] CREATININE 0.7 mg/dL 0.7-1.2 UREA NITROGEN 16 mg/dL 8-26 GLUCOSE 105 mg/dL H 70-100 SODIUM 138 mmol/L 136-145 POTASSIUM 2.3 mmol/L LL 3.5-5.1 CHLORIDE 98 mmol/L 98-107 CO2 29 mmol/L 22-29 CALCIUM 8.3 mg/dL L 8.4-10.2 MAGNESIUM 2.2 mg/dL 1.6-2.6 ANION GAP 11 mmol/L 5-15 .CREAT EGFR(CKD-EPI) >90 >60 Apr 24, 2024 07:35 AM [facility] CBC & DIFF Specimen Type: BLOOD Comment: Automated Differential Performed Ordering Provider: AARON VICTOR Report Released Date/Time: Apr 23, 2024 05:30 PM Reporting Lab: [facility] [address] Performing Lab: [facility] [address] WBC 10.49 10*3/uL 4.0-11.0 RBC 3.83 10*6/uL [...] 10*3/uL 0-0.1 Apr 23, 2024 01:20 PM [facility] LACTIC ACID Specimen Type: PLASMA No comment entered. Ordering Provider: AARON VICTOR Report Released Date/Time: Apr 23, 2024 12:05 PM Reporting Lab: [facility] [address] Performing Lab: [facility] [address] LACTIC ACID 1.5 mmol/L 0.5-2.2 Apr 23, 2024 01:20 PM [facility] PROTHROMBIN TIME/INR Specimen Type: PLASMA No comment entered. Ordering Provider: AARON VICTOR Report Released Date/Time: Apr 23, 2024 12:05 PM Reporting Lab: [facility] [address] Performing Lab: [facility] [address] .INR 1.2 H 0.8-1.1 .PT 14.5 s H 9.4-12.5 Apr 23, 2024 01:20 PM [facility] ACT PART THROMBO TIME Specimen Type: PLASMA No comment entered. Ordering Provider: AARON VICTOR Report Released Date/Time: Apr 23, 2024 12:05 PM Reporting Lab: [facility] [address] Performing Lab: [facility] [address] APTT 29.3 s 25.1-36.5 Apr 23, 2024 01:20 PM [facility] COMPREHENSIVE METABOLIC PANEL+MG Specimen Type: PLASMA No comment entered. Ordering Provider: AARON VICTOR Report Released Date/Time: Apr 23, 2024 12:05 PM Reporting Lab: [facility] [address] Performing Lab: [facility] [address] CREATININE 0.7 mg/dL 0.7-1.2 UREA NITROGEN 19 [...] >90 >60 Apr 23, 2024 01:20 PM [facility] CBC & DIFF Specimen Type: BLOOD Comment: Automated Differential Performed Ordering Provider: AARON VICTOR Report Released Date/Time: Apr 23, 2024 12:05 PM Reporting Lab: [facility] [address] Performing Lab: [facility] [address] WBC 12.50 10*3/uL H 4.0-11.0 RBC 4.07 [...] 10*3/uL 0-0.1 Apr 21, 2024 07:28 AM [facility] URINALYSIS Specimen Type: URINE No comment entered. Ordering Provider: ANANDA HUGGINS Report Released Date/Time: Apr 21, 2024 07:37 AM Reporting Lab: [facility] [address] Performing Lab: [facility] [address] URINE COLOR COLORLESS SPECIFIC GRAVITY 1.009 1.003-1.03 [...] 06, 2023 11:30 AM VA-TOBACCO FORMER USER [facility] Tobacco Use History This section includes a history of the smoking, or tobacco-related health factors, that were collected on or before the date of the Encounter. The data comes from the [place] facility where the Encounter took place. Date/Time Smoking Status/Tobacco Use Comment F acility May 06, 2023 11:30 AM VA-TOBACCO QUIT 15 YRS OR MORE [facility] Jun 04, 2022 09:00 AM VA-TOBACCO FORMER USER [facility] Jun 04, 2022 09:00 AM VA-TOBACCO QUIT 15 YRS OR MORE [facility] Jul 10, 2021 08:00 AM VA-TOBACCO FORMER USER [facility] Jul 10, 2021 08:00 AM VA-TOBACCO QUIT 5 TO < 15 YRS [facility] May 23, 2020 08:30 AM VA-TOBACCO FORMER USER [facility] May 23, 2020 08:30 AM VA-TOBACCO QUIT 5 TO < 15 YRS [facility] Mar 20, 2019 04:03 PM VA-TOBACCO FORMER USER [facility] Mar 20, 2019 04:03 PM VA-TOBACCO QUIT 5 TO < 15 YRS [facility] Mar 21, 2018 08:13 AM FORMER TOBACCO USER 7Y OR GREATE R [facility] Feb 24, 2017 09:24 AM FORMER TOBACCO USER 7Y OR GREATE R [facility] January 07, 2016 08:01 AM FORMER TOBACCO USE >1Y <7Y [facility] Feb 03, 2015 07:58 AM FORMER TOBACCO USE <1Y [facility] Feb 26, 2014 08:41 AM CURRENT TOBACCO USER [facility] May 13, 2011 01:45 PM CURRENT TOBACCO USER [facility] Advance Directives: All historical and current Section Date Range: From patient's date of to the date document was created. This section includes ALL of a patient's completed or amended [place] Advance and Rescinded Directives. The entries below indicate that a directive exists for the patient, but an actual copy is not included with this document. The data comes from all [place] facilities. Date Advance Directives Provider Source Mar [...] DRAIN PLAC EMENT PERITONEAL (P): FLACA WEAVER [id number] -1950 M Exm Date: APR 24, 2024@14:13 Req Phys: TAURUS WOOD Loc: 3K/04-24-2024@16:07 Img Loc: INTERVENTIONAL RADIOLOGY Service: PRIMARY [place] [address] (Case [id number] COMPLETE) IR PERITONEAL/RETROPERITONEAL PER(ANI Detailed) CPT:83514 Reason for Study: diverticular abscess Clinical History: [...] any questions or notifications of critical findings: [id number] If ordering provider is a trainee, enter the name and contact information of the responsible staff physician. Palmira Graves MD LAST CREATININE 0.7 (04/23/24) Report Status: Verified Date Reported: APR 24, 2024 Date Verified: APR 24, 2024 [employer] E-Sig:/ES/SADIA DEE MD Report: PROCEDURES: Placement of [...] anesthesia. Using real-time CT fluoroscopy, a 5 Malagasy Yueh catheter was advanced into the collection in the left lower quadrant. A wire was coiled in the collection. The tract into the collection was dilated to accommodate the 12 Malagasy locking pigtail drainage catheter. The catheter was secured to the skin with monofilament suture and connected to JUAN bulb suction. Impression: Successful placement of a 12 Malagasy locking pigtail drainage catheter in the left lower quadrant abscess. This catheter is connected to JUAN bulb suction with flushes, as ordered. I, SADIA DEE, have reviewed the images and report. Primary Interpreting Staff: SADIA DEE MD, RADIOLOGIST ([employer]) Primary Interpreting Resident: JEFFREY FLOWER MD, L D RN /SADIA SNYDER [facility] Apr 24, 2024 02:[address] NEEDLE PLACEMEN T (P): FLACA WEAVER [id number] -1950 M Exm Date: APR 24, 2024@14:11 Req Phys: TAURUS WOOD Loc: 3K04-24-2024@16:07 Im Loc: CT IMAGING Service: PRIMARY [place] [address] (Case [id number] COMPLETE) CT SCAN FOR NEEDLE PLACEMENT (CT Detailed) CPT:63208 Reason for Study: diverticular abscess Clinical History: Report Status: Verified Date Reported: APR 24, 2024 Date Verified: APR 24, 2024 [employer] E-Sig:/ES/SADIA DEE MD Report: PROCEDURES: Placement of [...] anesthesia. Using real-time CT fluoroscopy, a 5 Malagasy [employer] catheter was advanced into the collection in the left lower quadrant. A wire was coiled in the collection. The tract into the collection was dilated to accommodate the 12 Malagasy locking pigtail drainage catheter. The catheter was secured to the skin with monofilament suture and connected to JUAN bulb suction. Impression: Successful placement of a 12 Malagasy locking pigtail drainage catheter in the left lower quadrant abscess. This catheter is connected to JUAN bulb suction with flushes, as ordered. I, SADIA DEE, have reviewed the images and report. Primary Interpreting Staff: SADIA DEE MD, RADIOLOGIST ([employer]) Primary Interpreting Resident: JEFFREY FLOWER MD, L D RN /PJB SADIA DEE [facility] Apr 23, 2024 06:36 AM [facility] CT ABDOMEN/ PELVIS: FLACA WEAVER [id number] -1950 [facility] Date: APR 23, 2024@06:36 Req Phys: MCKAY VICTOR Loc: 3K04-24-2024@10:25 Img Loc: OUTSOURCE CT Service: Unknown (Case [id number] COMPLETE) NON [place] CT ABDOMEN/PELVIS (CT Detailed) CPT:42005 Reason for Study: OUTSIDE STUDY Clinical History: [...] Diagnostic Code: VERIFIED BY: / *ELECTRONICALLY FILED* [facility] Pathology Reports: +/- 30 days [...] AM LR MICROBIOLOGY RE PORT: Reporting Lab: [facility] [CLIA# [id number]] [place] [address] Accession [UID]: [id number] [[id number]] Received: Apr 21, 2024@08:16 Collection sample: URINE Collection date: Apr 21, 2024 07:28 Provider: ANANDA HUGGINS Comment on specimen: RECEIVED IN STERILE CUP Test(s) ordered: CULTURE & SUSCEPTIBILITY...... completed: Apr 22, 2024 * BACTERIOLOGY FINAL REPORT => Apr 22, 2024 08:38 TECH CODE: [id number] CULTURE RESULTS: NO GROWTH 24 HOURS Bacteriology Remark(s): THIS REPORT IS FINAL =--=--=--=--=--=--=--=--=--=--=--=- -=--=--=--=--=--=--=--=--=--=--=--= --=--=-- Performing Laboratory: Bacteriology Report Performed By: [facility] [CLIA# [id number]] [place] [address] [facility] Encounter Notes: All associated encounter notes This section contains the clinical notes associated to the Encounter. Date/Time Encounter Note(s) Provider Source Apr 29, 2024 06:37 AM RN PROGRESS NOTE: LOCAL TITLE: CCC: CLINICAL TRIAGE STANDARD TITLE: RN PROGRESS NOTE DATE OF NOTE: APR 29, 2024@06:37:40 ENTRY DATE: APR 29, 2024@06:37:40 AUTHOR: JOSE MIGUEL GREWAL EXP COSIGNER: URGENCY: STATUS: COMPLETED Patient Demographics Patient Name: FLACA WEAVER Patient Primary Address: [address] [place] [address] Patient Primary Phone: [phone] Patient : 1950 Patient Age: 73 Caller/Recipient Relation to Patient: Self Emergency Contact: NIMO PIÑA Nursing Plan and Disposition Other course(s) of action Generated msg to PACT/Provider Nurse Summary Nurse Summary: The is calling to report that he has a drain that was placed and it is leaking clear fluid. Obtained identifier information from the . [place] began raising his voice and cursing at this Nurse. Attempted to start verbal triage assessment and [place] yelled 'just forget it lady. I will just go to the emergency room,' and then disconnected and hung up the call. Non-Triage/Non-Symptom Call Generated msg to PACT/Provider-NonTriage Clinical Contact Center Codes Clinic/Location: V23 [facility] PHONE [facility] RN IMPORTANT: This note was created by [facility] Clinical Contact Center staff. Please do not alert the staff member by adding them as a signer for future communications. Alerts are not monitored by this user. /es/ jose miguel grewal REGISTERED NURSE Signed: 04/29/2024 06:37 Receipt Acknowledged By: 05/01/2024 15:53 /es/ Jatinder Cabrera MD Physician 05/01/2024 09:09 /es/ GUERITA AGUILA, ROSALIND REGISTERED NURSE JOSE MIGUEL GREWAL [facility]
--- OUTSIDE RECORDS SUMMARY | 2024-05-04 01:10 | XMS_ITS | Encounter Summary ---
Author Name [facility] Address [address] [place] [address] Care Team Providers Care Staff Midwife/Apprenticeship Director Name Role Phone JATINDER BENITEZ Primary Care [...] PART A Sep 29, 2016 PART A [phone] JUDY WEAVER PATIENT Selected Encounter This section includes the information on record at [place] for the Encounter. Date/Time Encounter Type Encounter Description Reason Provider Source May 03, 2024 12:19 PM Outpatient Encounter TELEPHONE TRIAGE MONAE PEPE Alex Encounter Template Text not used by [place] Plan of Treatment: Future Appointments (+ 6 months) and Future Tests (+/- 45 days) The Plan of Treatment section includes future care activities for the patient from all [place] treatmentfacilities. This section includes future appointments and future orders which are active, pending or scheduled. Future Appointments This section includes appointments that were scheduled to occur 6 months from the date of the Encounter, up to a maximum of 20 appointments. The data comes from all [place] treatment facilities. Appointment Date/Time Appointment Type Appointme nt Facility Name May 04, 2024 09:00 AM AMBULATORY - NONE [facility] May 07, 2024 08:45 AM AMBULATORY - MEDICINE [facility] May 08, 2024 02:00 PM [facility] May 09, 2024 07:30 AM AMBULATORY - SURGERY [facility] May 15, 2024 08:30 AM [facility] Active, Pending, and Scheduled Orders This section includes a listing of several types of active, pending, and scheduled orders, including clinic medications orders, diagnostic test orders, procedure orders and consult orders; where the start date of the order is 45 days before the date of the Encounter or 45 days after the date of theEncounter. The data comes from all [place] treatment facilities. Test Date/Time Test Type Test Details Facility Name Apr 26, 2024 10:10 AM Laboratory - Microbiology Order CULTURE & SUSCEPTIBILITY WOUND OTHER WC ONCE ~For Test: CULTURE & SUSCEPTIBILITY ~Culture sample from JUAN drain output [facility] Apr 26, 2024 10:10 AM Laboratory - Microbiology Order GRAM STAIN WOUND OTHER WC ONCE ~For Test: GRAM STAIN ~JUAN drain culture/gram stain [facility] Apr 27, 2024 02:30 PM Imaging - Ultrasound Order US AORTA (P) [facility] May 04, 2024 12:00 AM Laboratory - Chemistry Order BASIC METABOLIC PANEL+MG PLASMA SP ONCE [facility] May 08, 2024 02:00 PM Imaging - CT Scan Order CT (AP) ABDOMEN/PELVIS (P) LISANDRO [facility] Lab Results: +/- 30 days of the encounter This section includes the Chemistry and Hematology Lab Results on record with [place] for the patient. Radiology Reports and Pathology Reports are provided separately, in subsequent sections. Lab Results This section contains the Chemistry/Hematology Results that were resulted 30 days before or 30 daysafter the date of the Encounter. Date/Time Source Result Type Result - Unit Interpretation Reference Range Comment Apr 26, 2024 07:16 AM [facility] BASIC METABOLIC PANEL+MG Specimen Type: PLASMA No comment entered. Ordering Provider: JONO RANDOLPH Report Released Date/Time: Apr 25, 2024 02:50 PM Reporting Lab: [facility] [id number] Performing Lab: [facility] [id number] CREATININE 0.7 mg/dL 0.7-1.2 UREA NITROGEN 15 mg/dL 8-26 GLUCOSE 106 mg/dL H 70-100 SODIUM 139 mmol/L 136-145 POTASSIUM 3.4 mmol/L L 3.5-5.1 CHLORIDE 105 mmol/L 98-107 CO2 25 mmol/L 22-29 CALCIUM 8.5 mg/dL 8.4-10.2 MAGNESIUM 2.2 mg/dL 1.6-2.6 ANION GAP 9 mmol/L 5-15 .CREAT EGFR(CKD-EPI) >90 >60 Apr 25, 2024 05:10 PM [facility] BASIC METABOLIC PANEL+MG Specimen Type: PLASMA No comment entered. Ordering Provider: GIOVANNI ADLER Report Released Date/Time: Apr 25, 2024 05:04 PM Reporting Lab: [facility] [id number] Performing Lab: [facility] [phone] CREATININE 0.7 mg/dL 0.7-1.2 UREA NITROGEN 15 mg/dL 8-26 GLUCOSE 104 mg/dL H 70-100 SODIUM 139 mmol/L 136-145 POTASSIUM 3.2 mmol/L L 3.5-5.1 CHLORIDE 103 mmol/L 98-107 CO2 28 mmol/L 22-29 CALCIUM 8.5 mg/dL 8.4-10.2 MAGNESIUM 2.2 mg/dL 1.6-2.6 ANION GAP 8 mmol/L 5-15 .CREAT EGFR(CKD-EPI) >90 >60 Apr 25, 2024 07:46 AM [facility] BASIC METABOLIC PANEL+MG Specimen Type: PLASMA No comment entered. Ordering Provider: GIOVANNI ADLER Report Released Date/Time: Apr 24, 2024 12:37 PM Reporting Lab: [facility] [id number] Performing Lab: [facility] [phone] CREATININE 0.7 mg/dL 0.7-1.2 UREA NITROGEN 14 mg/dL 8-26 GLUCOSE 127 mg/dL H 70-100 SODIUM 139 mmol/L 136-145 POTASSIUM 2.9 mmol/L L 3.5-5.1 CHLORIDE 101 mmol/L 98-107 CO2 29 mmol/L 22-29 CALCIUM 8.7 mg/dL 8.4-10.2 MAGNESIUM 2.3 mg/dL 1.6-2.6 ANION GAP 9 mmol/L 5-15 .CREAT EGFR(CKD-EPI) >90 >60 Apr 24, 2024 04:42 PM [facility] BASIC METABOLIC PANEL+MG Specimen Type: PLASMA No comment entered. Ordering Provider: GIOVANNI ADLER Report Released Date/Time: Apr 24, 2024 12:37 PM Reporting Lab: [facility] [phone] Performing Lab: [facility] [phone] CREATININE 0.7 mg/dL 0.7-1.2 UREA NITROGEN 16 mg/dL 8-26 GLUCOSE 97 mg/dL 70-100 SODIUM 138 mmol/L 136-145 POTASSIUM 2.7 mmol/L L 3.5-5.1 CHLORIDE 99 mmol/L 98-107 CO2 30 mmol/L H 22-29 CALCIUM 8.4 mg/dL 8.4-10.2 MAGNESIUM 2.1 mg/dL 1.6-2.6 ANION GAP 9 mmol/L 5-15 .CREAT EGFR(CKD-EPI) >90 >60 Apr 24, 2024 07:36 AM [facility] BASIC METABOLIC PANEL+MG Specimen Type: PLASMA Comment: Critical Value Reported To: Cait Zamorano RN 04-24-24@[address] [place] [address]. Critical value report confirmed. Ordering Provider: AARON VICTOR Report Released Date/Time: Apr 23, 2024 05:30 PM Reporting Lab: [facility] [phone] Performing Lab: [facility] [phone] CREATININE 0.7 mg/dL 0.7-1.2 UREA NITROGEN 16 mg/dL 8-26 GLUCOSE 105 mg/dL H 70-100 SODIUM 138 mmol/L 136-145 POTASSIUM 2.3 mmol/L LL 3.5-5.1 CHLORIDE 98 mmol/L 98-107 CO2 29 mmol/L 22-29 CALCIUM 8.3 mg/dL L 8.4-10.2 MAGNESIUM 2.2 mg/dL 1.6-2.6 ANION GAP 11 mmol/L 5-15 .CREAT EGFR(CKD-EPI) >90 >60 Apr 24, 2024 07:35 AM [facility] CBC & DIFF Specimen Type: BLOOD Comment: Automated Differential Performed Ordering Provider: AARON VICTOR Report Released Date/Time: Apr 23, 2024 05:30 PM Reporting Lab: [facility] [phone] Performing Lab: [facility] [phone] WBC 10.49 10*3/uL 4.0-11.0 RBC 3.83 10*6/uL [...] 10*3/uL 0-0.1 Apr 23, 2024 01:20 PM [facility] LACTIC ACID Specimen Type: PLASMA No comment entered. Ordering Provider: AARON VICTOR Report Released Date/Time: Apr 23, 2024 12:05 PM Reporting Lab: [facility] [phone] Performing Lab: [facility] [phone] LACTIC ACID 1.5 mmol/L 0.5-2.2 Apr 23, 2024 01:20 PM [facility] PROTHROMBIN TIME/INR Specimen Type: PLASMA No comment entered. Ordering Provider: AARON VICTOR Report Released Date/Time: Apr 23, 2024 12:05 PM Reporting Lab: [facility] [phone] Performing Lab: [facility] [phone] .INR 1.2 H 0.8-1.1 .PT 14.5 s H 9.4-12.5 Apr 23, 2024 01:20 PM [facility] ACT PART THROMBO TIME Specimen Type: PLASMA No comment entered. Ordering Provider: AARON VICTOR Report Released Date/Time: Apr 23, 2024 12:05 PM Reporting Lab: [facility] [phone] Performing Lab: [facility] [address] APTT 29.3 s 25.1-36.5 Apr 23, 2024 01:20 PM [facility] COMPREHENSIVE METABOLIC PANEL+MG Specimen Type: PLASMA No comment entered. Ordering Provider: AARON VICTOR Report Released Date/Time: Apr 23, 2024 12:05 PM Reporting Lab: [facility] [phone] Performing Lab: [facility] [address] CREATININE 0.7 mg/dL 0.7-1.2 UREA NITROGEN 19 [...] >90 >60 Apr 23, 2024 01:20 PM [facility] CBC & DIFF Specimen Type: BLOOD Comment: Automated Differential Performed Ordering Provider: AARON VICTOR Report Released Date/Time: Apr 23, 2024 12:05 PM Reporting Lab: [facility] [phone] Performing Lab: [facility] [address] WBC 12.50 10*3/uL H 4.0-11.0 RBC 4.07 [...] 10*3/uL 0-0.1 Apr 21, 2024 07:28 AM [facility] URINALYSIS Specimen Type: URINE No comment entered. Ordering Provider: ANANDA HUGGINS Report Released Date/Time: Apr 21, 2024 07:37 AM Reporting Lab: [facility] [phone] Performing Lab: [facility] [address] URINE COLOR COLORLESS SPECIFIC GRAVITY 1.009 1.003-1.03 [...] and tobacco- related health factors from the [place] facility where the Encounter took place. Current Smoking Status This section includes the most current smoking, or tobacco-related health factor, from the [place] facility where the Encounter took place. Date/Time Current Smoking Status Comment Facil ity May 06, 2023 11:30 AM [place]-TOBACCO FORMER USER [facility] Tobacco Use History This section includes a history of the smoking, or tobacco-related health factors, that were collected on or before the date of the Encounter. The data comes from the [place] facility where the Encounter took place. Date/Time [...] ALL of a patient's completed or amended [place] Advance and Rescinded Directives. The entries below indicate that a directive exists for the patient, but an actual copy is not included with this document. The data comes from all [facility] facilities. Date Advance Directives Provider Source Mar [...] the Encounter. The data comes from all [place] treatment facilities. Date/Time Radiology Report Provider Source Apr 24, 2024 02:13 PM ABSCESS DRAIN PLAC EMENT PERITONEAL (P): FLACA WEAVER [id number] -1950 M Exm Date: APR 24, 2024@14:13 Req Phys: TAURUS WOOD Loc: 3KS/04-24-2024@16:07 Img Loc: INTERVENTIONAL RADIOLOGY Service: PRIMARY [place] [address] (Case [id number] COMPLETE) IR PERITONEAL/RETROPERITONEAL PER(ANI Detailed) CPT:49898 Reason for Study: diverticular abscess Clinical History: [...] any questions or notifications of critical findings: [phone] If ordering provider is a trainee, enter the name and contact information of the responsible staff physician. Palmira Graves MD LAST CREATININE 0.7 (04/23/24) Report Status: Verified Date Reported: APR 24, 2024 Date Verified: APR 24, 2024 Casino Gaming Inspector E-Sig:/ES/SADIA DEE MD Report: PROCEDURES: Placement of [...] anesthesia. Using real-time CT fluoroscopy, a 5 Greenlandic VEASYTeh catheter was advanced into the collection in the left lower quadrant. A wire was coiled in the collection. The tract into the collection was dilated to accommodate the 12 Greenlandic locking pigtail drainage catheter. The catheter was secured to the skin with monofilament suture and connected to JUAN bulb suction. Impression: Successful placement of a 12 Greenlandic locking pigtail drainage catheter in the left lower quadrant abscess. This catheter is connected to JUAN bulb suction with flushes, as ordered. I, SADIA DEE, have reviewed the images and report. Primary Interpreting Staff: SADIA DEE MD, RADIOLOGIST (Casino Gaming Inspector) Primary Interpreting Resident: JEFFREY FLOWER MD, BACTERIOLOGIST MEDICAL /SADIA SNYDER [facility] Apr 24, 2024 02:[address] NEEDLE PLACEMEN T (P): FLACA WEAVER [id number] -1950 M Exm Date: APR 24, 2024@14:11 Req Phys: TAURUS WOOD Loc: 3K04-24-2024@16:07 Im Loc: CT IMAGING Service: PRIMARY [place] [address] (Case [id number] COMPLETE) CT SCAN FOR NEEDLE PLACEMENT (CT Detailed) CPT:88220 Reason for Study: diverticular abscess Clinical History: Report Status: Verified Date Reported: APR 24, 2024 Date Verified: APR 24, 2024 Casino Gaming Inspector E-Sig:/ES/SADIA DEE MD Report: PROCEDURES: Placement of [...] anesthesia. Using real-time CT fluoroscopy, a 5 Greenlandic Yueh catheter was advanced into the collection in the left lower quadrant. A wire was coiled in the collection. The tract into the collection was dilated to accommodate the 12 Greenlandic locking pigtail drainage catheter. The catheter was secured to the skin with monofilament suture and connected to JUAN bulb suction. Impression: Successful placement of a 12 Greenlandic locking pigtail drainage catheter in the left lower quadrant abscess. This catheter is connected to JUAN bulb suction with flushes, as ordered. I, SADIA DEE, have reviewed the images and report. Primary Interpreting Staff: SADIA DEE MD, RADIOLOGIST (Casino Gaming Inspector) Primary Interpreting Resident: JEFFREY FLOWER MD, BACTERIOLOGIST MEDICAL /SADIA SNYDER [facility] Apr 23, 2024 06:[address] [place] [address] ABDOMEN/ PELVIS: FLACA WEAVER [id number] -1950 Ex Date: APR 23, 2024@06:36 Req Phys: MCKAY VICTOR [facility] Loc: 3K04-24-2024@10:25 [facility] Loc: OUTSOURCE CT Service: Unknown (Case [id number] COMPLETE) NON [place] CT ABDOMEN/PELVIS (CT Detailed) CPT:79523 Reason for Study: OUTSIDE STUDY Clinical History: OUTSIDE STUDY Report Status: Electronically Filed Date Reported: APR 24, 2024 Report: This is an outside Imaging study and/or report imported for continuity of patient care. This Imaging study and/or report was not reviewed or verified by a [place] Radiologist. Impression: This is an outside Imaging study and/or report imported for continuity of patient care. This Imaging study and/or report was not reviewed or verified by a [place] Radiologist. Primary Diagnostic Code: VERIFIED BY: / *ELECTRONICALLY FILED* [facility] Pathology Reports: +/- 30 days of [...] the Encounter. The data comes from all [place] treatment facilities. Date/Time Pathology Report Provider Source Apr 21, 2024 07:28 AM LR MICROBIOLOGY RE PORT: Reporting Lab: [facility] [CLIA# [id number]] [place] [address] Accession [UID]: [id number] [[id number]] Received: Apr 21, 2024@08:16 Collection sample: URINE Collection date: Apr 21, 2024 07:28 Provider: ANANDA HUGGINS Comment on specimen: RECEIVED IN STERILE CUP Test(s) ordered: CULTURE & SUSCEPTIBILITY...... completed: Apr 22, 2024 * BACTERIOLOGY FINAL REPORT => Apr 22, 2024 08:38 TECH CODE: [id number] CULTURE RESULTS: NO GROWTH 24 HOURS Bacteriology Remark(s): THIS REPORT IS FINAL =--=--=--=--=--=--=--=--=--=--=--=- -=--=--=--=--=--=--=--=--=--=--=--= --=--=-- Performing Laboratory: Bacteriology Report Performed By: [facility] [CLIA# [id number]] [place] [address] [facility] Encounter Notes: All associated encounter notes This section contains the clinical notes associated to the Encounter. Date/Time Encounter Note(s) Provider Source May 03, 2024 12:19 PM RN PROGRESS NOTE: LOCAL TITLE: CCC: CLINICAL TRIAGE STANDARD TITLE: RN PROGRESS NOTE DATE OF NOTE: MAY 03, 2024@12:19:43 ENTRY DATE: MAY 03, 2024@12:19:43 AUTHOR: MONAE PEPE EXP COSIGNER: URGENCY: STATUS: COMPLETED Patient Demographics Patient Name: FLACA WEAVER Patient Primary Address: [address] [place] [address] Patient Primary Phone: [phone] Patient : 1950 Patient Age: 73 Caller/Recipient Relation to Patient: Self Emergency Contact: NIMO PIÑA Triage Summary Conducted triage/discussed symptoms Pain Score: 0 (No Pain) Utilized the Triage Tool: Yes Chief Complaint: Swelling Of Both Feet System WHEN: Within 2 Weeks Nurse's Recommendation / WHEN: Within 2 Weeks System WHERE: Clinic Nurse's Recommendation / WHERE: [facility] Patient Disposition Patient/Caregiver agrees to plan of care: Yes Patient WHERE: Clinic/[facility] Patient WHEN: Within 2 weeks Nursing Plan and Disposition Referred Patient for In-Person Appt Transferred patient to Sched & Admin-Apt Other course(s) of action Generated msg to PACT/Provider Provided guidance for worsening symptoms: *Caller/Patient* advised to call facilities [place] Clinical Contact Center or seek immediate medical attention for new or worsening symptoms Nurse Summary Nurse Summary: PATIENT CONCERN/DURATION/ONSET: Gregoria c/o swelling of bilateral feet and ankles x1 week. He states it started when he was in the hospital last week with diverticulitis. Denies fevers, redness, drainage, pain, new/worsening shortness of breath, or weight gain. [place] is also concerned that his Lisinopril was stopped, would like to discuss restarting. WHAT HAS PATIENT TRIED TO TREAT THE SYMPTOMS: Under desk pedal bike with no relief. HISTORY/PREVIOUS TREATMENT: Htn Cannabis misuse CAD Hld WHAT IS PATIENT GOAL FOR THE CALL: Appointment Was Virtual Care Visit considered? No LABOR RELATIONS OFFICER DISPOSITION: Recommended triage is greater than 24 hours secondary to symptom severity. Appointment available within recommended time frame, scheduled with [facility]. Message Account Advisor sent to PACT for medication question. Caller agrees with plan of care and verbalizes s/s to seek medical attention as well as home care advice offered (e.g. if symptoms worsen or new symptoms present should seek medical care) and as outlined in education section below. Best contact for [place] is [phone] (Verified). This note was created by a 3 [facility] RN. Please do not alert this nurse by adding as a signer for future communications. Alerts are not monitored by this user, please reach out to [facility] Leadership instead if indicated. Clinical Contact Center Codes Clinic/Location: [address] PHONE [facility] RN Decision Support System Output: Triage Complete Triage Date: 05/03/2024, 12:08 PM Triage Note: Decision Support Tool Used: [facility] Phone Triage Li, 03 May 2024 17:05:42 +0000 [facility] Demographics 73 y/o Male Results CC: Swelling Of Both Feet Software suggested: Within 2 Weeks Software suggested follow-up location: Clinic, consider [facility] Values and Measures Duration of CC: 1 Weeks Positive Responses PMH: CHF Negative Responses Denies: HPI: dyspnea on exertion, worse than usual during normal activities Denies: HPI: foot erythema, bilateral, worsening Denies: HPI: foot pain, with foot swelling, bilateral Denies: HPI: foot swelling, worsening Denies: HPI: weight gain, within past week Education Verbal Education Provided for: Leg Swelling Home Care Education Log Home care for leg swelling includes: Avoid tight clothing. Eat a low salt diet. Stop smoking. Avoid exposure to secondary smoke. Avoid standing for long periods. Elevate your legs. Follow an exercise plan developed with your provider. Weight loss if you are overweight Wear elastic support hose. Take prescribed medications as directed: Don't skip doses of your medication. This makes them less effective. Be aware of the common side effects that may be caused by your medication. Notify your provider if you have a leg swelling and any of the following: Chest pain Difficulty breathing Worsening cough Coughing up blood Worsening leg swelling (unilateral) Red streaks in the skin Skin redness and swelling Decreasing urine output Facial swelling Hand swelling IMPORTANT: This note was created by [facility] Clinical Contact Center staff. Please do not alert the staff member by adding them as a signer for future communications. Alerts are not monitored by this user. /alexi/ MONAE PEPE Registered Nurse Signed: 05/03/2024 12:19 MONAE PEPE [facility]
--- OUTSIDE RECORDS SUMMARY | 2024-05-04 01:10 | XMS_ITS | Encounter Summary ---
Author Name [facility] [facility] [place] Address [address] [place] [address] Care Team Providers Care Educational Paraprofessional Name Role Phone JATINDER BENITEZ Primary Care [...] PART A Sep 29, 2016 PART A [phone] JUDY WEAVER PATIENT Selected Encounter This section includes the information on record at [place] for the Encounter. Date/Time Encounter Type Encounter Description Reason Pro vider Source May 03, 2024 12:06 PM Outpatient Encounter TELEPHONE TRIAGE IHE Encounter Template Text not used by [...] 2024 09:00 AM AMBULATORY - NONE [place] [facility] May 07, 2024 08:45 AM AMBULATORY - MEDICINE [place] [facility] May 08, 2024 02:00 PM [facility] May 09, 2024 07:30 AM AMBULATORY - SURGERY [place] [facility] May 15, 2024 08:30 AM AMBULATORY - MEDICINE [facility] Active, Pending, and Scheduled Orders This [...] SUSCEPTIBILITY ~Culture sample from JUAN drain output [facility] Apr 26, 2024 10:10 AM Laboratory - Microbiology Order GRAM STAIN WOUND OTHER WC ONCE ~For Test: GRAM STAIN ~JUAN drain culture/gram stain [facility] Apr 27, 2024 02:30 PM Imaging - Ultrasound Order US AORTA (P) [facility] May 04, 2024 12:00 AM Laboratory - Chemistry Order BASIC METABOLIC PANEL+MG PLASMA SP ONCE [facility] May 08, 2024 02:00 PM Imaging - CT Scan Order CT (AP) ABDOMEN/PELVIS (P) LISANDRO [facility] Lab Results: +/- 30 days of [...] Range Comment Apr 26, 2024 07:16 AM [facility] BASIC METABOLIC PANEL+MG Specimen Type: PLASMA No comment entered. Ordering Provider: JONO RANDOLPH Report Released Date/Time: Apr 25, 2024 02:50 PM Reporting Lab: [facility] [phone] Performing Lab: [facility] [address] CREATININE 0.7 mg/dL 0.7-1.2 UREA NITROGEN 15 mg/dL 8-26 GLUCOSE 106 mg/dL H 70-100 SODIUM 139 mmol/L 136-145 POTASSIUM 3.4 mmol/L L 3.5-5.1 CHLORIDE 105 mmol/L 98-107 CO2 25 mmol/L 22-29 CALCIUM 8.5 mg/dL 8.4-10.2 MAGNESIUM 2.2 mg/dL 1.6-2.6 ANION GAP 9 mmol/L 5-15 .CREAT EGFR(CKD-EPI) >90 >60 Apr 25, 2024 05:10 PM [facility] BASIC METABOLIC PANEL+MG Specimen Type: PLASMA No comment entered. Ordering Provider: GIOVANNI ADLER Report Released Date/Time: Apr 25, 2024 05:04 PM Reporting Lab: [facility] [phone] Performing Lab: [facility] [address] CREATININE 0.7 mg/dL 0.7-1.2 UREA NITROGEN 15 mg/dL 8-26 GLUCOSE 104 mg/dL H 70-100 SODIUM 139 mmol/L 136-145 POTASSIUM 3.2 mmol/L L 3.5-5.1 CHLORIDE 103 mmol/L 98-107 CO2 28 mmol/L 22-29 CALCIUM 8.5 mg/dL 8.4-10.2 MAGNESIUM 2.2 mg/dL 1.6-2.6 ANION GAP 8 mmol/L 5-15 .CREAT EGFR(CKD-EPI) >90 >60 Apr 25, 2024 07:46 AM [facility] BASIC METABOLIC PANEL+MG Specimen Type: PLASMA No comment entered. Ordering Provider: GIOVANNI ADLER Report Released Date/Time: Apr 24, 2024 12:37 PM Reporting Lab: [facility] [address] Performing Lab: [facility] [address] CREATININE 0.7 mg/dL 0.7-1.2 UREA NITROGEN 14 mg/dL 8-26 GLUCOSE 127 mg/dL H 70-100 SODIUM 139 mmol/L 136-145 POTASSIUM 2.9 mmol/L L 3.5-5.1 CHLORIDE 101 mmol/L 98-107 CO2 29 mmol/L 22-29 CALCIUM 8.7 mg/dL 8.4-10.2 MAGNESIUM 2.3 mg/dL 1.6-2.6 ANION GAP 9 mmol/L 5-15 .CREAT EGFR(CKD-EPI) >90 >60 Apr 24, 2024 04:42 PM [facility] BASIC METABOLIC PANEL+MG Specimen Type: PLASMA No comment entered. Ordering Provider: GIOVANNI ADLER Report Released Date/Time: Apr 24, 2024 12:37 PM Reporting Lab: [facility] [phone] Performing Lab: [facility] [address] CREATININE 0.7 mg/dL 0.7-1.2 UREA NITROGEN 16 mg/dL 8-26 GLUCOSE 97 mg/dL 70-100 SODIUM 138 mmol/L 136-145 POTASSIUM 2.7 mmol/L L 3.5-5.1 CHLORIDE 99 mmol/L 98-107 CO2 30 mmol/L H 22-29 CALCIUM 8.4 mg/dL 8.4-10.2 MAGNESIUM 2.1 mg/dL 1.6-2.6 ANION GAP 9 mmol/L 5-15 .CREAT EGFR(CKD-EPI) >90 >60 Apr 24, 2024 07:36 AM [facility] BASIC METABOLIC PANEL+MG Specimen Type: PLASMA Comment: Critical Value Reported To: Cait Zamorano RN 04-24-24@[address] [place] [address]. Critical value report confirmed. Ordering Provider: AARON VICTOR Report Released Date/Time: Apr 23, 2024 05:30 PM Reporting Lab: [facility] [address] Performing Lab: [facility] [address] CREATININE 0.7 mg/dL 0.7-1.2 UREA NITROGEN 16 mg/dL 8-26 GLUCOSE 105 mg/dL H 70-100 SODIUM 138 mmol/L 136-145 POTASSIUM 2.3 mmol/L LL 3.5-5.1 CHLORIDE 98 mmol/L 98-107 CO2 29 mmol/L 22-29 CALCIUM 8.3 mg/dL L 8.4-10.2 MAGNESIUM 2.2 mg/dL 1.6-2.6 ANION GAP 11 mmol/L 5-15 .CREAT EGFR(CKD-EPI) >90 >60 Apr 24, 2024 07:35 AM [facility] CBC & DIFF Specimen Type: BLOOD Comment: Automated Differential Performed Ordering Provider: AARON VICTOR Report Released Date/Time: Apr 23, 2024 05:30 PM Reporting Lab: [facility] [address] Performing Lab: [facility] [address] WBC 10.49 10*3/uL 4.0-11.0 RBC 3.83 10*6/uL [...] 10*3/uL 0-0.1 Apr 23, 2024 01:20 PM [facility] LACTIC ACID Specimen Type: PLASMA No comment entered. Ordering Provider: AARON VICTOR Report Released Date/Time: Apr 23, 2024 12:05 PM Reporting Lab: [facility] [address] Performing Lab: [facility] [address] LACTIC ACID 1.5 mmol/L 0.5-2.2 Apr 23, 2024 01:20 PM [facility] PROTHROMBIN TIME/INR Specimen Type: PLASMA No comment entered. Ordering Provider: AARON VICTOR Report Released Date/Time: Apr 23, 2024 12:05 PM Reporting Lab: [facility] [address] Performing Lab: [facility] [address] .INR 1.2 H 0.8-1.1 .PT 14.5 s H 9.4-12.5 Apr 23, 2024 01:20 PM [facility] ACT PART THROMBO TIME Specimen Type: PLASMA No comment entered. Ordering Provider: AARON VICTOR Report Released Date/Time: Apr 23, 2024 12:05 PM Reporting Lab: [facility] [address] Performing Lab: [facility] [address] APTT 29.3 s 25.1-36.5 Apr 23, 2024 01:20 PM [facility] COMPREHENSIVE METABOLIC PANEL+MG Specimen Type: PLASMA No comment entered. Ordering Provider: AARON VICTOR Report Released Date/Time: Apr 23, 2024 12:05 PM Reporting Lab: [facility] [address] Performing Lab: [facility] [address] CREATININE 0.7 mg/dL 0.7-1.2 UREA NITROGEN 19 [...] >90 >60 Apr 23, 2024 01:20 PM [facility] CBC & DIFF Specimen Type: BLOOD Comment: Automated Differential Performed Ordering Provider: AARON VICTOR Report Released Date/Time: Apr 23, 2024 12:05 PM Reporting Lab: [facility] [address] Performing Lab: [facility] [address] WBC 12.50 10*3/uL H 4.0-11.0 RBC 4.07 [...] 10*3/uL 0-0.1 Apr 21, 2024 07:28 AM [facility] URINALYSIS Specimen Type: URINE No comment entered. Ordering Provider: ANANDA HUGGINS Report Released Date/Time: Apr 21, 2024 07:37 AM Reporting Lab: [facility] [address] Performing Lab: [facility] [address] URINE COLOR COLORLESS SPECIFIC GRAVITY 1.009 1.003-1.03 [...] 06, 2023 11:30 AM VA-TOBACCO FORMER USER [facility] Tobacco Use History This section includes a history of the smoking, or tobacco-related health factors, that were collected on or before the date of the Encounter. The data comes from the [place] facility where the Encounter took place. Date/Time Smoking Status/Tobacco Use Comment F acility May 06, 2023 11:30 AM VA-TOBACCO QUIT 15 YRS OR MORE [facility] Jun 04, 2022 09:00 AM VA-TOBACCO FORMER USER [facility] Jun 04, 2022 09:00 AM VA-TOBACCO QUIT 15 YRS OR MORE [facility] Jul 10, 2021 08:00 AM VA-TOBACCO FORMER USER [facility] Jul 10, 2021 08:00 AM VA-TOBACCO QUIT 5 TO < 15 YRS [facility] May 23, 2020 08:30 AM VA-TOBACCO FORMER USER [facility] May 23, 2020 08:30 AM VA-TOBACCO QUIT 5 TO < 15 YRS [facility] Mar 20, 2019 04:03 PM VA-TOBACCO FORMER USER [facility] Mar 20, 2019 04:03 PM VA-TOBACCO QUIT 5 TO < 15 YRS [facility] Mar 21, 2018 08:13 AM FORMER TOBACCO USER 7Y OR GREATE R [facility] Feb 24, 2017 09:24 AM FORMER TOBACCO USER 7Y OR GREATE R [facility] January 07, 2016 08:01 AM FORMER TOBACCO USE >1Y <7Y [facility] Feb 03, 2015 07:58 AM FORMER TOBACCO USE <1Y [facility] Feb 26, 2014 08:41 AM CURRENT TOBACCO USER [facility] May 13, 2011 01:45 PM CURRENT TOBACCO USER [facility] Advance Directives: All historical and current [...] Mar 23, 2016 CLINICAL WARNING [facility] Radiology Reports: +/- 30 days [...] DRAIN PLAC EMENT PERITONEAL (P): FLACA WEAVER [id number] -1950 M Exm Date: APR 24, 2024@14:13 Req Phys: TAURUS WOOD Loc: 3KS04-24-2024@16:07 Img Loc: INTERVENTIONAL RADIOLOGY Service: PRIMARY CARE [place] [address] (Case [id number] COMPLETE) IR PERITONEAL/RETROPERITONEAL PER(ANI Detailed) CPT:53451 Reason for Study: diverticular abscess Clinical History: [place] IS NOT under investigation for COVID-19 or is COVID-19 negative 73yo M with hx of recurrent diverticulitis, transferred from [facility] 04/[address] 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 Palmira Graves MD LAST CREATININE 0.7 (04/23/24) Report Status: Verified Date Reported: APR 24, 2024 Date Verified: APR 24, 2024 Power Bender Operator E-Sig:/ES/SADIA DEE MD Report: PROCEDURES: Placement [...] anesthesia. Using real-time CT fluoroscopy, a 5 Angolan Yueh catheter was advanced into the collection in the left lower quadrant. A wire was coiled in the collection. The tract into the collection was dilated to accommodate the 12 Angolan locking pigtail drainage catheter. The catheter was secured to the skin with monofilament suture and connected to JUAN bulb suction. Impression: Successful placement of a 12 Angolan locking pigtail drainage catheter in the left lower quadrant abscess. This catheter is connected to JUAN bulb suction with flushes, as ordered. I, SADIA DEE, have reviewed the images and report. Primary Interpreting Staff: SADIA DEE MD, RADIOLOGIST (Power Bender Operator) Primary Interpreting Resident: JEFFREY FLOWER MD, MARRIAGE COUNSELOR MINISTER /SADIA SNYDER [facility] Apr 24, 2024 02:[address] NEEDLE PLACEMEN T (P): FLACA WEAVER [id number] -1950 M Exm Date: APR 24, 2024@14:11 Req Phys: TAURUS WOOD Loc: 3K04-24-2024@16:07 Im Loc: CT IMAGING Service: PRIMARY CARE [place] [address] (Case [id number] COMPLETE) CT SCAN FOR NEEDLE PLACEMENT (CT Detailed) CPT:89037 Reason for Study: diverticular abscess Clinical History: Report Status: Verified Date Reported: APR 24, 2024 Date Verified: APR 24, 2024 Power Bender Operator E-Sig:/ES/SADIA DEE MD Report: PROCEDURES: Placement [...] anesthesia. Using real-time CT fluoroscopy, a 5 Angolan Yueh catheter was advanced into the collection in the left lower quadrant. A wire was coiled in the collection. The tract into the collection was dilated to accommodate the 12 Angolan locking pigtail drainage catheter. The catheter was secured to the skin with monofilament suture and connected to JUAN bulb suction. Impression: Successful placement of a 12 Angolan locking pigtail drainage catheter in the left lower quadrant abscess. This catheter is connected to JUAN bulb suction with flushes, as ordered. I, SADIA DEE, have reviewed the images and report. Primary Interpreting Staff: SADIA DEE MD, RADIOLOGIST (Power Bender Operator) Primary Interpreting Resident: JEFFREY FLOWER MD, MARRIAGE COUNSELOR MINISTER /SADIA SNYDER [facility] Apr 23, 2024 06:[address] [facility] ABDOMEN/ PELVIS: FLACA WEAVER [id number] -1950 M Ex Date: APR 23, 2024@06:36 Req Phys: MCKAY VICTOR [facility] Loc: 3K04-24-2024@10:25 [facility] [place] CT Service: Unknown (Case [id number] COMPLETE) NON [place] CT ABDOMEN/PELVIS (CT Detailed) CPT:65134 Reason for Study: OUTSIDE STUDY Clinical History: [...] Diagnostic Code: VERIFIED BY: / *ELECTRONICALLY FILED* [facility] Pathology Reports: +/- 30 days of [...] AM LR MICROBIOLOGY RE PORT: Reporting Lab: [facility] [CLIA# [id number]] [place] [address] Accession [UID]: [id number] [[id number]] Received: Apr 21, 2024@08:16 Collection sample: URINE Collection date: Apr 21, 2024 07:28 Provider: ANANDA HUGGINS Comment on specimen: RECEIVED IN STERILE CUP Test(s) ordered: CULTURE & SUSCEPTIBILITY...... completed: Apr 22, 2024 * BACTERIOLOGY FINAL REPORT => Apr 22, 2024 08:38 TECH CODE: [id number] CULTURE RESULTS: NO GROWTH 24 HOURS Bacteriology Remark(s): THIS REPORT IS FINAL =--=--=--=--=--=--=--=--=--=--=--=- -=--=--=--=--=--=--=--=--=--=--=--= --=--=-- Performing Laboratory: Bacteriology Report Performed By: [facility] [CLIA# [id number]] [place] [address] [facility] Encounter Notes: All associated encounter notes This section contains the clinical notes associated to the Encounter. Date/Time Encounter Note(s) Provider Source May 03, 2024 12:06 PM ADMINISTRATIVE NOT E: LOCAL TITLE: CCC: SCHEDULING ADMINISTRATION STANDARD TITLE: ADMINISTRATIVE NOTE DATE OF NOTE: MAY 03, 2024@12:06 ENTRY DATE: MAY 03, 2024@12:06:43 AUTHOR: SHEA BEATTY COSIGNER: URGENCY: STATUS: COMPLETED Primary Care Call Center Per note below technical writer scheduled a blood draw appt and the ROTARY SURFACE GRINDER appt. Patient wanted to get the labs done tomorrow and first opening for ROTARY SURFACE GRINDER was Tuesday. Full Stack Developer didn't see a lab # placed yet. Please place and tag back technical writer so technical writer can add it into the appt comment for tomorrow. Thanks /alexi/ Shea Beatty Visn [address] [facility] AMSA Signed: 05/03/2024 12:11 Receipt Acknowledged By: 05/03/2024 12:44 /es/ GUERITA AGUILA, RN REGISTERED NURSE SHEA BEATTY [facility]
--- OUTSIDE RECORDS SUMMARY | 2024-05-04 01:10 | XMS_ITS | Encounter Summary ---
Author Name [facility] [facility] [place] [facility] [place] [facility] [place] Address [address] [place] [address] Care Team Providers Care Agricultural Extension Educator Name Role Phone JATINDER CABRERA Primary Care [...] PART A Sep 29, 2016 PART A [id number] [phone] JUDY WEAVER PATIENT Selected Encounter This section includes the information on record at [place] for the Encounter. 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 This section includes future appointments and future orders which are active, pending or scheduled. Future Appointments This section includes appointments that were scheduled to occur 6 months from the date of the Encounter, up to a maximum of 20 appointments. The data comes from all [facility]. Appointment Date/Time Appointment Type Appointme nt Facility Name May 04, 2024 09:00 AM AMBULATORY - NONE [facility] May 07, 2024 08:45 AM AMBULATORY - MEDICINE [facility] May 08, 2024 02:00 PM AMBULATORY - NONE [facility] May 09, 2024 07:30 AM AMBULATORY - SURGERY [facility] May 15, 2024 08:30 AM AMBULATORY MEDICINE [facility] Active, Pending, and Scheduled Orders This section includes a listing of several types of active, pending, and scheduled orders, including clinic medications orders, diagnostic test orders, procedure orders and consult orders; where the start date of the order is 45 days before the date of the Encounter or 45 days after the date of theEncounter. The data comes from all [facility]. Test Date/Time Test Type Test Details Facility Name Apr 26, 2024 10:10 AM Laboratory - Microbiology Order GRAM STAIN WOUND OTHER WC ONCE ~For Test: GRAM STAIN ~JUAN drain culture/gram stain [facility] Apr 26, 2024 10:10 AM Laboratory - Microbiology Order CULTURE & SUSCEPTIBILITY WOUND OTHER WC ONCE ~For Test: CULTURE & SUSCEPTIBILITY ~Culture sample from JUAN drain output [facility] Apr 27, 2024 02:30 PM Imaging - Ultrasound Order US AORTA (P) [facility] May 04, 2024 12:00 AM Laboratory - Chemistry Order BASIC METABOLIC PANEL+MG PLASMA SP ONCE [facility] May 08, 2024 02:00 PM Imaging - CT Scan Order CT (AP) ABDOMEN/PELVIS (P) LISANDRO [facility] Lab Results: +/- 30 days of the encounter This section includes the Chemistry and Hematology Lab Results on record with [place] for the patient. Radiology Reports and Pathology Reports are provided separately, in subsequent sections. Lab Results This section contains the Chemistry/Hematology Results that were resulted 30 days before or 30 daysafter the date of the Encounter. Date/Time Source Result Type Result - Unit Interpretation Reference Range Comment Apr 26, 2024 07:16 AM [facility] BASIC METABOLIC PANEL+MG Specimen Type: PLASMA No comment entered. Ordering Provider: JONO RANDOLPH Report Released Date/Time: Apr 25, 2024 02:50 PM Reporting Lab: [facility] [phone] Performing Lab: [facility] [address] CREATININE 0.7 mg/dL 0.7-1.2 UREA NITROGEN 15 mg/dL 8-26 GLUCOSE 106 mg/dL H 70-100 SODIUM 139 mmol/L 136-145 POTASSIUM 3.4 mmol/L L 3.5-5.1 CHLORIDE 105 mmol/L 98-107 CO2 25 mmol/L 22-29 CALCIUM 8.5 mg/dL 8.4-10.2 MAGNESIUM 2.2 mg/dL 1.6-2.6 ANION GAP 9 mmol/L 5-15 .CREAT EGFR(CKD-EPI) >90 >60 Apr 25, 2024 05:10 PM [facility] BASIC METABOLIC PANEL+MG Specimen Type: PLASMA No comment entered. Ordering Provider: GIOVANNI ADLER Report Released Date/Time: Apr 25, 2024 05:04 PM Reporting Lab: [facility] [phone] Performing Lab: [facility] [address] CREATININE 0.7 mg/dL 0.7-1.2 UREA NITROGEN 15 mg/dL 8-26 GLUCOSE 104 mg/dL H 70-100 SODIUM 139 mmol/L 136-145 POTASSIUM 3.2 mmol/L L 3.5-5.1 CHLORIDE 103 mmol/L 98-107 CO2 28 mmol/L 22-29 CALCIUM 8.5 mg/dL 8.4-10.2 MAGNESIUM 2.2 mg/dL 1.6-2.6 ANION GAP 8 mmol/L 5-15 .CREAT EGFR(CKD-EPI) >90 >60 Apr 25, 2024 07:46 AM [facility] BASIC METABOLIC PANEL+MG Specimen Type: PLASMA No comment entered. Ordering Provider: GIOVANNI ADLER Report Released Date/Time: Apr 24, 2024 12:37 PM Reporting Lab: [facility] [phone] Performing Lab: [facility] [address] CREATININE 0.7 mg/dL 0.7-1.2 UREA NITROGEN 14 mg/dL 8-26 GLUCOSE 127 mg/dL H 70-100 SODIUM 139 mmol/L 136-145 POTASSIUM 2.9 mmol/L L 3.5-5.1 CHLORIDE 101 mmol/L 98-107 CO2 29 mmol/L 22-29 CALCIUM 8.7 mg/dL 8.4-10.2 MAGNESIUM 2.3 mg/dL 1.6-2.6 ANION GAP 9 mmol/L 5-15 .CREAT EGFR(CKD-EPI) >90 >60 Apr 24, 2024 04:42 PM [facility] BASIC METABOLIC PANEL+MG Specimen Type: PLASMA No comment entered. Ordering Provider: GIOVANNI ADLER Report Released Date/Time: Apr 24, 2024 12:37 PM Reporting Lab: [facility] [phone] Performing Lab: [facility] [address] CREATININE 0.7 mg/dL 0.7-1.2 UREA NITROGEN 16 mg/dL 8-26 GLUCOSE 97 mg/dL 70-100 SODIUM 138 mmol/L 136-145 POTASSIUM 2.7 mmol/L L 3.5-5.1 CHLORIDE 99 mmol/L 98-107 CO2 30 mmol/L H 22-29 CALCIUM 8.4 mg/dL 8.4-10.2 MAGNESIUM 2.1 mg/dL 1.6-2.6 ANION GAP 9 mmol/L 5-15 .CREAT EGFR(CKD-EPI) >90 >60 Apr 24, 2024 07:36 AM [facility] BASIC METABOLIC PANEL+MG Specimen Type: PLASMA Comment: Critical Value Reported To: Cait Zamorano RN 8-27-24@[address] [place] [address]. Critical value report confirmed. Ordering Provider: AARON VICTOR Report Released Date/Time: Apr 23, 2024 05:30 PM Reporting Lab: [facility] [phone] Performing Lab: [facility] [address] CREATININE 0.7 mg/dL 0.7-1.2 UREA NITROGEN 16 mg/dL 8-26 GLUCOSE 105 mg/dL H 70-100 SODIUM 138 mmol/L 136-145 POTASSIUM 2.3 mmol/L LL 3.5-5.1 CHLORIDE 98 mmol/L 98-107 CO2 29 mmol/L 22-29 CALCIUM 8.3 mg/dL L 8.4-10.2 MAGNESIUM 2.2 mg/dL 1.6-2.6 ANION GAP 11 mmol/L 5-15 .CREAT EGFR(CKD-EPI) >90 >60 Apr 24, 2024 07:35 AM [facility] CBC & DIFF Specimen Type: BLOOD Comment: Automated Differential Performed Ordering Provider: AARON VICTOR Report Released Date/Time: Apr 23, 2024 05:30 PM Reporting Lab: [facility] [address] Performing Lab: [facility] [address] WBC 10.49 10*3/uL 4.0-11.0 RBC 3.83 10*6/uL [...] 10*3/uL 0-0.1 Apr 23, 2024 01:20 PM [facility] LACTIC ACID Specimen Type: PLASMA No comment entered. Ordering Provider: AARON VICTOR Report Released Date/Time: Apr 23, 2024 12:05 PM Reporting Lab: [facility] [address] Performing Lab: [facility] [address] LACTIC ACID 1.5 mmol/L 0.5-2.2 Apr 23, 2024 01:20 PM [facility] ACT PART THROMBO TIME Specimen Type: PLASMA No comment entered. Ordering Provider: AARON VICTOR Report Released Date/Time: Apr 23, 2024 12:05 PM Reporting Lab: [facility] [phone] Performing Lab: [facility] [address] APTT 29.3 s 25.1-36.5 Apr 23, 2024 01:20 PM [facility] PROTHROMBIN TIME/INR Specimen Type: PLASMA No comment entered. Ordering Provider: AARON VICTOR Report Released Date/Time: Apr 23, 2024 12:05 PM Reporting Lab: [facility] [address] Performing Lab: [facility] [address] .INR 1.2 H 0.8-1.1 .PT 14.5 s H 9.4-12.5 Apr 23, 2024 01:20 PM [facility] COMPREHENSIVE METABOLIC PANEL+MG Specimen Type: PLASMA No comment entered. Ordering Provider: AARON VICTOR Report Released Date/Time: Apr 23, 2024 12:05 PM Reporting Lab: [facility] [phone] Performing Lab: [facility] [address] CREATININE 0.7 mg/dL 0.7-1.2 UREA NITROGEN 19 [...] >90 >60 Apr 23, 2024 01:20 PM [facility] CBC & DIFF Specimen Type: BLOOD Comment: Automated Differential Performed Ordering Provider: AARON VICTOR Report Released Date/Time: Apr 23, 2024 12:05 PM Reporting Lab: [facility] [address] Performing Lab: [facility] [address] WBC 12.50 10*3/uL H 4.0-11.0 RBC 4.07 [...] 10*3/uL 0-0.1 Apr 21, 2024 07:28 AM [facility] URINALYSIS Specimen Type: URINE No comment entered. Ordering Provider: ANANDA HUGGINS Report Released Date/Time: Apr 21, 2024 07:37 AM Reporting Lab: [facility] [address] Performing Lab: [facility] [address] URINE COLOR COLORLESS SPECIFIC GRAVITY 1.009 1.003-1.03 [...] Height Weight Body Mass Index Source May 02, 2024 10:00 AM 177/74 [facility] May 02, 2024 09:55 AM 97.7 65 201/[address] [facility] Social History: Smoking Status (Most current) and Tobacco Use (All prior to encounter date) This section includes the most current, and the historical, smoking and tobacco- related health factors from the [place] facility where the Encounter took place. Current Smoking Status This section includes the most current smoking, or tobacco-related health factor, from the [place] facility where the Encounter took place. Date/Time Current Smoking Status Comment Facil ity May 06, 2023 11:30 AM VA-TOBACCO FORMER USER [facility] Tobacco Use History This section includes a history of the smoking, or tobacco-related health factors, that were collected on or before the date of the Encounter. The data comes from the [place] facility where the Encounter took place. Date/Time Smoking Status/Tobacco Use Comment F acility May 06, 2023 11:30 AM VA-TOBACCO QUIT 15 YRS OR MORE [facility] Jun 04, 2022 09:00 AM VA-TOBACCO FORMER USER [facility] Jun 04, 2022 09:00 AM VA-TOBACCO QUIT 15 YRS OR MORE [facility] Jul 10, 2021 08:00 AM VA-TOBACCO FORMER USER [facility] Jul 10, 2021 08:00 AM VA-TOBACCO QUIT 5 TO < 15 YRS [facility] May 23, 2020 08:30 AM VA-TOBACCO FORMER USER [facility] May 23, 2020 08:30 AM VA-TOBACCO QUIT 5 TO < 15 YRS [facility] Mar 20, 2019 04:03 PM VA-TOBACCO FORMER USER [facility] Mar 20, 2019 04:03 PM VA-TOBACCO QUIT 5 TO < 15 YRS [facility] Mar 21, 2018 08:13 AM FORMER TOBACCO USER 7Y OR GREATE R [facility] Feb 24, 2017 09:24 AM FORMER TOBACCO USER 7Y OR GREATE R [facility] January 07, 2016 08:01 AM FORMER TOBACCO USE >1Y <7Y [facility] Feb 03, 2015 07:58 AM FORMER TOBACCO USE <1Y [facility] Feb 26, 2014 08:41 AM CURRENT TOBACCO USER [facility] May 13, 2011 01:45 PM CURRENT TOBACCO USER [facility] Advance Directives: All historical and current Section Date Range: From patient's date of to the date document was created. This section includes ALL of a patient's completed or amended [place] Advance and Rescinded Directives. The entries below indicate that a directive exists for the patient, but an actual copy is not included with this document. The data comes from all [facility]. Date Advance Directives Provider Source Mar 23, 2016 CLINICAL WARNING [facility] Radiology Reports: +/- 30 days of [...] the Encounter. The data comes from all [place] treatment facilities. Date/Time Radiology Report Provider Source Apr 24, 2024 02:13 PM ABSCESS DRAIN PLAC EMENT PERITONEAL (P): FLACA WEAVER [id number] -1950 M Exm Date: APR 24, 2024@14:13 Req Phys: TAURUS WOOD Loc: 3K04-24-2024@16:07 Img Loc: INTERVENTIONAL RADIOLOGY Service: PRIMARY CARE [place] [address] (Case [id number] COMPLETE) IR PERITONEAL/RETROPERITONEAL PER(ANI Detailed) CPT:62383 Reason for Study: diverticular abscess Clinical History: [facility] IS NOT under investigation for COVID-19 or is COVID-19 negative 73yo M with hx of recurrent diverticulitis, transferred from [facility] 04/[address] 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 Palmira Powell MD LAST CREATININE 0.7 (04/23/24) Report Status: Verified Date Reported: APR 24, 2024 Date Verified: APR 24, 2024 Product Promoter Sales Person E-Sig:/ES/SADIA DEE MD Report: PROCEDURES: Placement of [...] anesthesia. Using real-time CT fluoroscopy, a 5 Belgian Yueh catheter was advanced into the collection in the left lower quadrant. A wire was coiled in the collection. The tract into the collection was dilated to accommodate the 12 Belgian locking pigtail drainage catheter. The catheter was secured to the skin with monofilament suture and connected to JUAN bulb suction. Impression: Successful placement of a 12 Belgian locking pigtail drainage catheter in the left lower quadrant abscess. This catheter is connected to JUAN bulb suction with flushes, as ordered. I, SADIA DEE, have reviewed the images and report. Primary Interpreting Staff: SADIA DEE MD, RADIOLOGIST (Product Promoter Sales Person) Primary Interpreting Resident: JEFFREY FLOWER MD, BATH ATTENDANT /SADIA SNYDER [facility] Apr 24, 2024 02:[address] NEEDLE PLACEMEN T (P): FLACA WEAVER [id number] -1950 M Exm Date: APR 24, 2024@14:11 Req Phys: TAURUS WOOD Loc: 3K04-24-2024@16:07 Im Loc: CT IMAGING Service: PRIMARY CARE [place] [address] (Case [id number] COMPLETE) CT SCAN FOR NEEDLE PLACEMENT (CT Detailed) CPT:00858 Reason for Study: diverticular abscess Clinical History: Report Status: Verified Date Reported: APR 24, 2024 Date Verified: APR 24, 2024 Product Promoter Sales Person E-Sig:/ES/SADIA DEE MD Report: PROCEDURES: Placement of [...] anesthesia. Using real-time CT fluoroscopy, a 5 Belgian Yueh catheter was advanced into the collection in the left lower quadrant. A wire was coiled in the collection. The tract into the collection was dilated to accommodate the 12 Belgian locking pigtail drainage catheter. The catheter was secured to the skin with monofilament suture and connected to JUAN bulb suction. Impression: Successful placement of a 12 Belgian locking pigtail drainage catheter in the left lower quadrant abscess. This catheter is connected to JUAN bulb suction with flushes, as ordered. I, SADIA DEE, have reviewed the images and report. Primary Interpreting Staff: SADIA DEE MD, RADIOLOGIST (Product Promoter Sales Person) Primary Interpreting Resident: JEFFREY FLOWER MD, BATH ATTENDANT /SADIA SNYDER [facility] Apr 23, 2024 06:[address] ABDOMEN/ PELVIS: FLACA WEAVER [id number] -1950 M Exm Date: APR 23, 2024@06:36 Req Phys: MCKAY VICTOR Loc: 3K04-24-2024@10:25 Img Loc: OUTSOURCE CT Service: Unknown (Case [id number] COMPLETE) NON [place] CT ABDOMEN/PELVIS (CT Detailed) CPT:90583 Reason for Study: OUTSIDE STUDY Clinical History: OUTSIDE STUDY Report Status: Electronically Filed Date Reported: APR 24, 2024 Report: This is an outside Imaging study and/or report imported for continuity of patient care. This Imaging study and/or report was not reviewed or verified by a [place] Radiologist. Impression: This is an outside Imaging study and/or report imported for continuity of patient care. This Imaging study and/or report was not reviewed or verified by a [place] Radiologist. Primary Diagnostic Code: VERIFIED BY: / *ELECTRONICALLY FILED* [facility] Pathology Reports: +/- 30 days [...] the Encounter. The data comes from all [place] treatment facilities. Date/Time Pathology Report Provider Source Apr 21, 2024 07:28 AM LR MICROBIOLOGY RE PORT: Reporting Lab: [facility] [CLIA# [id number]] [place] [address] Accession [UID]: [id number] [[id number]] Received: Apr 21, 2024@08:16 Collection sample: URINE Collection date: Apr 21, 2024 07:28 Provider: ANANDA HUGGINS Comment on specimen: RECEIVED IN STERILE CUP Test(s) ordered: CULTURE & SUSCEPTIBILITY...... completed: Apr 22, 2024 * BACTERIOLOGY FINAL REPORT => Apr 22, 2024 08:38 TECH CODE: [id number] CULTURE RESULTS: NO GROWTH 24 HOURS Bacteriology Remark(s): THIS REPORT IS FINAL =--=--=--=--=--=--=--=--=--=--=--=- -=--=--=--=--=--=--=--=--=--=--=--= --=--=-- Performing Laboratory: Bacteriology Report Performed By: [facility] [CLIA# [id number]] [address] [place] [address] [facility] Encounter Notes: All associated encounter notes This section contains the clinical notes associated to the Encounter. Date/Time Encounter Note(s) Provider Source May 03, 2024 10:10 AM ADDENDUM: LOCAL TITLE: Addendum STANDARD TITLE: ADDENDUM DATE OF NOTE: MAY 03, 2024@10:10:10 ENTRY DATE: MAY 03, 2024@10:10:11 AUTHOR: JATINDER CABRERA EXP COSIGNER: URGENCY: STATUS: COMPLETED PACT RN: please arrange FU appt to review his home BP trend and hospital FU. Needs BMP done in conjunction w/ appt. (See DC summary) RTC and BMP order is in. /es/ Jatinder Cabrera MD Physician Signed: 05/03/2024 10:11 Receipt Acknowledged By: 05/03/2024 16:02 /es/ GUERITA AGUILA, RN REGISTERED NURSE 05/03/2024 13:37 /es/ BRITTNEY HARRISON ADVANCED CONVICT GUARD for RICKY MIRANDA --- Original Document --- 05/02/24 [facility]INIC NURSING NOTE: Vital Signs: Temperature: 97.7 F [36.5 C] (05/02/2024 09:55) Blood Pressure: 201/88 (05/02/2024) Heart Rate: 65 (05/02/2024 09:55) Respiratory Rate: 14 (04/24/2024 16:00) Pain: 4 (05/02/2024 09:55) Blood pressure re-check: 177/ Nurse to also document readings on cover page pt denies any Sx of elevated BP. Nurse to notify RN, Current Provider, PCP Pain Screening: PAIN INTENSITY: (Patient pain rating. 0 = no pain; 10 = worst pain) 4 Type of Visit: Follow up /alexi/ DAMION MALDONADO LPN LPN Signed: 05/02/2024 11:17 Receipt Acknowledged By: 05/02/2024 12:46 /alexi/ GUERITA AGUILA RN REGISTERED NURSE 05/02/2024 ADDENDUM STATUS: COMPLETED Dr. Powell notified of elevated BP. Meds discussed with pt. /jerome MALDONADO LPN LPN Signed: 05/02/2024 11:18 JATINDER CABRERA [facility] May 02, 2024 11:15 AM COLON & RECTAL ELISA BRAEDEN NURSING NOTE: LOCAL TITLE: COLON-RECTAL CLINIC NURSING NOTE STANDARD TITLE: COLON & RECTAL SURGERY NURSING NOTE DATE OF NOTE: MAY 02, 2024@11:15 ENTRY DATE: MAY 02, 2024@11:16:03 AUTHOR: DAMION MALDONADO COSIGNER: URGENCY: STATUS: COMPLETED [facility] NURSING NOTE Has ADDENDA Vital Signs: Temperature: 97.7 F [36.5 C] (05/02/2024 09:55) Blood Pressure: 201/88 (05/02/2024) Heart Rate: 65 (05/02/2024 09:55) Respiratory Rate: 14 (04/24/2024 16:00) Pain: 4 (05/02/2024 09:55) Blood pressure re-check: 177/74 Nurse to also document readings on cover page pt denies any Sx of elevated BP. Nurse to notify RN, Current Provider, PCP Pain Screening: PAIN INTENSITY: (Patient pain rating. 0 = no pain; 10 = worst pain) 4 Type of Visit: Follow up /alexi/ DAMION MALDONADO LPN LPN Signed: 05/02/2024 11:17 Receipt Acknowledged By: 05/02/2024 12:46 /alexi/ GUERITA AGUILA RN REGISTERED NURSE 05/02/2024 ADDENDUM STATUS: COMPLETED Dr. Powell notified of elevated BP. Meds discussed with pt. /alexi/ DAMION MALDONADO LPN LPN Signed: 05/02/2024 11:18 05/03/2024 ADDENDUM STATUS: COMPLETED PACT RN: please arrange FU appt to review his home BP trend and hospital FU. Needs BMP done in conjunction w/ appt. (See DC summary) RTC and BMP order is in. /alexi/ Jatinder Cabrera MD Physician Signed: 05/03/2024 10:11 Receipt Acknowledged By: * AWAITING SIGNATURE * GUERITA AGUILA * AWAITING SIGNATURE * RICKY MIRANDA 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 Having some output not a lot. Flushes drain appropriately. Is wondering if he can get the mathew removed. Denies any issues with urinating previously. Feels that urine is clear now. PE: Temperature: 97.7 F [36.5 C] (05/02/2024 09:55) Blood Pressure: 177/74 (05/02/2024 10:00) Pulse: 65 (05/02/2024 09:55) Respiration: 14 (04/24/2024 16:00) Pain: 4 (05/02/2024 09:55) Pulse Oximetry: 97% (05/02/2024 09:55) AAox3, NAD Abd soft, NT/ND Drain in place with murky yellowish output A/P: This is a 73-year-old gentleman with diverticulitis complicated by coloveiscle fistula and abscess - will obtain repeat CT and follow-up next week - mathew removed; pt instructed to call or go to ED if unable to urniate - Total time spent reviewing chart, patient care and consultation on day of clinic visit: 25min /alexi/ PALMIRA POWELL MD STAFF SURGEON, COLON/RECTAL Signed: 05/03/2024 17:23 PALMIRA POWELL [facility]
== END 2024-04-23 10:17 | disposition home or self-care (01) ==
LOC: AMB 05-04 00:55
PROVIDERS: PCP Family Medicine; Visit Provider Student in an Organized Health Care Education/Training Program
DX: K57.20 Diverticulitis of large intestine with perforation and abscess without bleeding (principal); R31.9 Hematuria, unspecified
CPT/HCPCS: A0425; A0427

== ENCOUNTER 2024-07-13 07:35 | Emergency (ER) | payer OTHER, SELFPAY ==
[2024-07-13 07:42] VITALS: BP 99/63; PULSE 72; RESP 18; TEMP 36; O2SAT 96; BMI 25.8
--- NOTE | 2024-07-13 08:02 | ED.GENADULT ---
HPI - General Adult General Chief complaint: Post Op Complication Stated complaint: ostomy bag placed 07/13,unable to eat or drink Time Seen by Provider: 07/13/24 07:58 History of Present Illness HPI narrative: 73 yo M with recent bout of diverticulitis complicated by abscess and colovesical fistula, also a history of coronary disease, CHF, hyperlipidemia, hypertension, common iliac artery aneurysm, anemia, chronic low back pain, BPH, lung nodules, pancreatic cysts. Seen in ER in [place] in March. CT scan showed diverticulitis with a Helen diverticular abscess with communication into the bladder- a colovesical fistula. White count was 19. He was transferred to the [facility] for admission. I do not have records from the [facility]. History is from the patient. He does not seem to fully understand what happened. It sounds like he was hospitalized at the [facility] for several weeks. He was treated with IV antibiotics and had what sounds like a percutaneous drain placed by Interventional Radiology. That drain was removed, but apparently the infection or abscess recurred so he had a 2nd drain placed. He has been in out of the hospital the [facility] since March. He finally had an open operation on July 03. He says he thinks the removed part of his colon. He says they took part of his small intestine and antacid to his large intestine to make an ostomy which is coming out in his right lower quadrant. They fixed his bladder. He sliced the jeannine in place and is due for his postop check next week He says he has had trouble with nausea throughout the entire course of his diverticulitis and it has been going on for several months. It is still going on since his surgery in since he was discharged from the [facility] 4 days ago, on Tuesday. He says he is able eat and drink but then feels really sick after eats. Sometimes he throws up. He is not having a fever. He is not having much abdominal pain. He says he took a few Tylenol for his abdominal pain but otherwise has need any other pain medicine. He is having liquidy brownish greenish stool in his ostomy. Last night he passed some stool per rectum. He is not really able to describe stool. He says it was liquidy, like diarrhea. I tried to get the patient described it more to figure out if it is just rectal mucus or if there is actually drainage of feces which would suggest a new fistula or abscess. He really cannot quantify ordered further described the stool other than saying it is liquidy. He is not running a fever. He came to the ER today because he he wants to know if the stool the past from his rectum is normal. He wants some medicine for nausea. He wants to see a cold surgeon at [facility] and does not want to go back to the [facility]. he indicates that he is frustrated with the care he has been getting at the [facility]. it sounds like his primary care is also through the [facility]. Related Data Home Medications ?Medication ?Instructions ?Recorded ?Confirmed aspirin 81 mg tablet,delayed 81 mg PO DAILY 09/04/22 09/30/22 release (Adult Aspirin Regimen) nitroglycerin 0.4 mg sublingual 0.4 mg sublingual Q5M PRN 09/13/22 09/30/22 tablet polyethylene glycol 17 ea miscellaneous .QD 09/13/22 09/30/22 psyllium 1 tbsp PO ONCE 09/13/22 09/30/22 Previous Rx's ?Medication ?Instructions ?Recorded atorvastatin 40 mg tablet 40 mg PO DAILY #90 tabs 09/13/22 dicyclomine 10 mg capsule 10 mg PO BID PRN abd pain #60 caps 09/13/22 empagliflozin 25 mg tablet 12.5 mg (1/2 x 25 mg) PO DAILY #45 09/13/22 tabs furosemide 20 mg tablet 20 mg PO DAILY #90 tabs 09/13/22 isosorbide mononitrate 30 mg 30 mg PO QDAY #90 tabs 09/13/22 tablet,extended release 24 hr lisinopril 10 0.5 tab PO DAILY #45 tabs 09/13/22 mg-hydrochlorothiazide 12.5 mg tablet ondansetron 4 mg disintegrating 4 mg PO Q6H PRN nausea and 09/13/22 tablet vomiting #60 tabs spironolactone 25 mg tablet 12.5 mg (1/2 x 25 mg) PO DAILY #45 09/13/22 tabs ondansetron HCl 4 mg tablet 4 mg PO Q8H PRN nausea and 07/13/24 vomiting 4 days #10 tabs Allergies Allergy/AdvReac Type Severity Reaction Status Date / Time terazosin Allergy Unknown Verified 07/13/24 09:53 [facility] Medical History Chronic constipation ?K59.09 - Other constipation (ICD-10) Pancreatic cyst ?K86.2 - Cyst of pancreas (ICD-10) Infarction of kidney ?N28.0 - Ischemia and infarction of kidney (ICD-10) Hiatal hernia ?K44.9 - Diaphragmatic hernia without obstruction or gangrene (ICD-10) Multiple lung nodules ?R91.8 - Other nonspecific abnormal finding of lung field (ICD-10) BPH (benign prostatic hyperplasia) ?N40.0 - Benign prostatic hyperplasia without lower urinary tract symptoms (ICD-10) Adenoma of left adrenal gland ?D35.02 - Benign neoplasm of left adrenal gland (ICD-10) History of kidney stones ?Z87.442 - Personal history of urinary calculi (ICD-10) CHF (congestive heart failure) ?I50.9 - Heart failure, unspecified (ICD-10) Edema ?R60.9 - Edema, unspecified (ICD-10) IBS (irritable bowel syndrome) ?K58.9 - Irritable bowel syndrome without diarrhea (ICD-10) CAD (coronary artery disease) ?I25.10 - Atherosclerotic heart disease of [place] coronary artery without angina pectoris (ICD-10) Obstructive sleep apnea syndrome ?G47.33 - Obstructive sleep apnea (adult) (pediatric) (ICD-10) Neck pain ?M54.2 - Cervicalgia (ICD-10) Impulse control disorder ?F63.9 - Impulse disorder, unspecified (ICD-10) Hypertension ?I10 - Essential (primary) hypertension (ICD-10) Hyperlipidemia ?E78.5 - Hyperlipidemia, unspecified (ICD-10) History of vitamin D deficiency ?Z86.39 - Personal history of other endocrine, nutritional and metabolic disease (ICD-10) History of marijuana use ?F12.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, unspecified, in remission (ICD-10) Diverticulitis of sigmoid colon ?K57.32 - Diverticulitis of large intestine without perforation or abscess without bleeding (ICD-10) Common iliac aneurysm ?I72.3 - Aneurysm of iliac artery (ICD-10) Chronic low back pain ?M54.50 - Low back pain, unspecified (ICD-10) ?G89.29 - Other chronic pain (ICD-10) Leukocytosis ?D72.829 - Elevated white blood cell count, unspecified (ICD-10) Anemia ?D64.9 - Anemia, unspecified (ICD-10) Surgical History History of heart artery stent ?Z95.5 - Presence of coronary angioplasty implant and graft (ICD-10) History of spinal surgery ?Z98.890 - Other specified postprocedural states (ICD-10) History of hemorrhoids ?Z87.19 - Personal history of other diseases of the digestive system (ICD-10) History of carpal tunnel surgery ?Z98.890 - Other specified postprocedural states (ICD-10) Social History Smoking Status: Current some day smoker What tobacco products do you use: cigarettes Smoking quit date/years: >15 years ago Do you use any of these nicotine containing products: None Second hand tobacco smoke exposure: Yes How often do you have a drink containing alcohol: monthly or less How many standard drinks containing alcohol do you have on a typical day: 1 or 2 How often do you have six or more drinks on one occasion: Never AUDIT-C Alcohol total score: 1 Non-prescribed substance use: marijuana (any form) service: Yes Exam Narrative: Exam Narrative: Constitutional: Appears well-developed and well-nourished. Alert. Conversant, but a somewhat vague historian. I think he is a little bit overwhelmed and may be still feeling a little bit adrift after his ostomies placement. Non toxic. HENT: Head: Atraumatic. Nose: Nose normal. Mouth/Throat: Oral mucosa is clear and moist. no trismus. Pharynx normal. Eyes: Conjunctivae normal. EOM normal. Pupils equal, round, and reactive to light. No scleral icterus. Neck: Normal range of motion. Neck supple. No tracheal deviation present. Cardiovascular: Normal rate, regular rhythm. No gallop. No friction rub. No murmur heard. Pulmonary/Chest: Effort normal. No stridor. No respiratory distress. No wheezes. No rales. No rhonchi Abdominal: Soft. Bowel sounds normal. No distension. No mass. Ostomy in place in right lower quadrant and there is dark brown/green tinge liquidy soft feces in the ostomy bag. No blood or mucus. Mucosal lining looks pink and normal. He has a mid lower midline abdominal incision with jeannine in place. Incision looks good. No redness. No bleeding. No purulent drainage. Mild lower abdominal tenderness. No rebound. No guarding. Musculoskeletal: RUE: Normal range of motion. No tenderness. No deformity LUE: Normal range of motion. No tenderness. No deformity RLE: Normal range of motion. No edema. No tenderness. No deformity LLE: Normal range of motion. No edema. No tenderness. No deformity Neurological: Alert and oriented to person, place, and time. Normal strength. CN II-VII intact. No sensory deficit. GCS eye subscore is 4. GCS verbal subscore is 5. GCS motor subscore is 6. Normal coordination Skin: Skin is warm and dry. No rash noted. No pallor. Normal capillary refill. Psychiatric: Normal mood. Somewhat flat affect. He is little bit vague with his history. With some effort and able to get the rough sequence of procedures and surgeries he has been through. It is difficult for him to characterize what actually came out of his rectum last night. It is also difficult to get him to characterize the true duration and frequency of his nausea. I wonder if he may just be overwhelmed by the entire process and the new ostomy. Const: Vital Signs, click to edit/add: Vital Signs - 24 hr 07/13/24 07:42 Temperature 96.8 F L Pulse Rate [Pulse Oximeter] 72 Respiratory Rate 18 Blood Pressure [Ri ght Upper Arm] 99/63 Pulse Oximetry 96 Oxygen Delivery Me thod Room Air Course Vital Signs Vital signs: Initial Vital Signs Temperature 96.8 F L 07/13/24 07:42 Temperature Source Temporal Artery Scan 07/13/24 07:42 Pulse Rate 72 07/13/24 07:42 Respiratory Rate 18 07/13/24 07:42 Blood Pressure 99/63 07/13/24 07:42 Blood Pressure Mean 75 07/13/24 07:42 Pulse Oximetry 96 07/13/24 07:42 Oxygen Delivery Method Room Air 07/13/24 07:42 Vital Signs Temperature 96.8 F L 07/13/24 07:42 Pulse Rate 72 07/13/24 07:42 Respiratory Rate 18 07/13/24 07:42 Blood Pressure 99/63 07/13/24 07:42 Pulse Oximetry 96 07/13/24 07:42 Oxygen Delivery Method Room Air 07/13/24 07:42 Temperature 96.8 F L 07/13/24 07:42 Pulse Rate 72 07/13/24 07:42 Respiratory Rate 18 07/13/24 07:42 Blood Pressure 99/63 07/13/24 07:42 Pulse Oximetry 96 07/13/24 07:42 Oxygen Delivery Method Room Air 07/13/24 07:42 Medications Administered Medications: Discontinued Medications Generic Name Dose Route Start Last Admin Trade Name Sunil PRN Reason Stop Dose Admin Ondansetron HCl 4 mg 07/13/24 08:50 07/13/24 09:05 Ondansetron Odt 4 Mg Tab PO 07/13/24 08:51 4 mg ONCE ONE Administration Medical Decision Making MDM Narrative Medical decision making narrative: 73-year-old male presenting to the ER today with concern for ongoing nausea also a little bit of diarrhea stool output from his rectum. He has a complex recent past history notable for diverticulitis complicated by abscess and colovesical fistula. He has had multiple hospitalizations at the [facility], IR drainage is, and had a partial colectomy with ostomy placement 10 days ago. He came back to the ER in [place] today saying he has had nausea ever since surgery and is just not getting better. He is not really having much abdominal pain. He is also concerned because he had some stool output through his rectum yesterday and he did not think he should be stooling anymore since his rectum was disconnected. Laboratory workup shows leukocytosis but actually improved compared to March. Repeat CT scan today shows mild inflammatory change in the pelvis but no signs of any recurrent or ongoing abscess, fistula, no sign of obstruction or other surgical complication. Patient is feeling much better after Zofran administered here in the ER. He wants to get home and requests that we give him a prescription for Zofran. He says he will follow up with his doctors at the [facility] next week for his postop check. However his long-term goal is to change his care to doctors at [facility] because he does not like caries been getting at the [facility]. I do not have any way to directly refer him to Colorectal surgery [facility] but I did give him a phone number for [facility] which he can call which may help arrange his follow-up. He says he is waiting till after August when his new insurance kicks in and then he can go to [facility]. In the meantime, precautions for return to the ER reviewed and questions answered to the best my ability. Lab Data Labs: Lab Results 07/13/24 07/13/24 Range/Units 08:54 09:50 WBC 17.00 H (4.50-11.00) K/uL RBC 5.12 (4.30-5.90) m/uL Hgb 16.0 (13.5-17.5) gm/dL Hct 46.6 (37.0-53.0) % MCV 91 (80-100) fL MCH 31 (26-34) pg MCHC 34 (32-36) gm/dL RDW Coeff of [place] 14.0 (11.5-15.5) % Plt Count 518 H (140-440) K/uL Neut % (Auto) 82.9 H (42.0-72.0) % Lymph % (Auto) 10.1 L (20-44) % [place] % (Auto) 6.1 (0.0-11.0) % Eos % (Auto) 0.2 (0.0-7.0) % Baso % (Auto) 0.1 (0.0-3.0) % Neut # (Auto) 14.10 H (1.7-7.0) K/uL Lymph # (Auto) 1.70 (0.90-2.90) K/uL [place] # (Auto) 1.00 H (0.00-0.90) K/UL Eos # (Auto) 0.00 (0.00-0.50) K/uL Baso # (Auto) 0.00 (0.00-0.30) K/uL Abs Immat Gran (auto) 0.10 (0.00-0.30) K/uL Imm/Tot Granulo (auto) 0.6 % Sodium 128 L (135-149) mmol/L Potassium 4.3 (3.6-5.1) mmol/L Chloride 93 L (96-114) mmol/L Carbon Dioxide 21 (20-32) mmol/L Anion Gap 14 (7-15) mEq/L BUN 72 H (7-30) mg/dL Creatinine 1.5 (0.5-1.5) mg/dL Estimated Creat Clear 47.41 Estimated GFR 49 ml/min Glucose 108 (60-115) mg/dL Calcium 10.5 (8.4-10.6) mg/dL Total Bilirubin 0.4 (0.1-1.5) mg/dL AST 41 H (12-35) U/L ALT 53 H (4-50) U/L Alkaline Phosphatase 79 (40-150) U/L Total Protein 8.0 (6.0-8.3) g/dL Albumin 4.6 (3.3-5.0) g/dL Lipase 130 (23-300) U/L Urine Color Dark yellow (Yellow) Urine Appearance Clear (Clear) Urine pH 5.5 (5.0-8.5) Ur Specific [place] 1.025 (1.000-1.030) Urine Protein 1+ A (Negative) Urine Glucose (UA) 2+ A (Negative) Urine Ketones Negative (Negative) Urine Blood Negative (Negative) Urine Nitrite Negative (Negative) Urine Bilirubin Negative (Negative) Urine Urobilinogen 0.2 (0.2-1.0) Ur Leukocyte Esterase Negative (Negative) Urine RBC 0-2 (0-2) Urine WBC 0-2 (0-5) Ur Squamous Epith Cells Few (None-Few) Urine Bacteria None (None) Fine Granular Casts Many A (None) Coarse Granular Casts Few A (None) Urine Mucus Many A (None) Imaging Data CT scan - abdomen: Attestation: I have reviewed the pertinent imaging results. Radiologist's impression: IMPRESSION: 1. There has been interval resection of the inflamed portion of the sigmoid. The anastomotic site between the rectum and sigmoid shows no abnormal findings. Persistent but markedly improved inflammatory changes in the pelvis. No evidence of acute diverticulitis or collection within the abdomen or pelvis. 2. Right lower quadrant stoma. There is a parastomal hernia admitting a loop of small bowel and fat but no definite upstream dilation to suggest obstruction. 3. The bladder now appears normal without wall thickening or gas within the bladder. 4. Small hiatal hernia and evidence of chronic reflux. 5. Other incidental nonacute appearing findings as above. Discharge Plan Discharge Clinical Impression: Nausea Instructions: Acute Nausea and Vomiting (DC) Additional Instructions: As we discussed, the cause for your nausea is not definitive at this time, we but we suspect probably due to the ongoing healing from your big operation. Use the Zofran if needed help treat nausea. Monitor your symptoms carefully. If you have worsening or uncontrolled nausea and vomiting, any fever or chills, any new abdominal pain, change in your ostomy output, more stool from your rectum, or any other problems, please call your surgeons at the [facility] or return to the ER immediately. Please follow-up with your doctors at the [facility] next week for your staple removal and her postop check. If you would like to get a new surgeon, you can call [facility]. [phone]. This is a group of colon surgeons who cover multiple hospitals in the [facility], including [facility] as well as [facility] in [place]. Prescriptions: New ondansetron HCl 4 mg tablet 4 mg PO Q8H PRN (Reason: nausea and vomiting) 4 Days Qty: 10 0RF No Action nitroglycerin 0.4 mg tablet, sublingual 0.4 mg sublingual Q5M PRN psyllium Powder 1 tbsp PO ONCE Rx Instructions: mix into at least 8 oz of water or juice before administering polyethylene glycol Powder 17 ea miscellaneous .QD isosorbide mononitrate 30 mg tablet extended release 24 hr 30 mg PO QDAY Qty: 90 3RF atorvastatin 40 mg tablet 40 mg PO DAILY Qty: 90 3RF dicyclomine 10 mg capsule 10 mg PO BID PRN (Reason: abd pain) Qty: 60 11RF empagliflozin 25 mg tablet 12.5 mg PO DAILY Qty: 45 3RF furosemide 20 mg tablet 20 mg PO DAILY Qty: 90 3RF lisinopril-hydrochlorothiazide 10-12.5 mg tablet 0.5 tab PO DAILY Qty: 45 3RF ondansetron 4 mg tablet,disintegrating 4 mg PO Q6H PRN (Reason: nausea and vomiting) Qty: 60 5RF spironolactone 25 mg tablet 12.5 mg PO DAILY Qty: 45 3RF aspirin [Adult Aspirin Regimen] 81 mg tablet,delayed release (DR/EC) 81 mg PO DAILY Follow Up/Referrals: Steven Sheth MD [Staff Physician] - Stand Alone Forms: [employer] Info Instructions
--- NOTE | 2024-07-13 08:50 | CRLHL7_ITS ---
For Patients: As a result of the Century Cures Act, medical imaging exams and procedure reports are released immediately into your electronic medical record. You may view this report before your referring provider. If you have questions, please contact your health care provider. INDICATION: Nausea and diarrhea. On 07/03/2024, had surgery to repair bladder and treated diverticulitis. Ostomy. COMPARISON: The most recent available study of April 23, 2024 TECHNIQUE: CT examination of the abdomen and pelvis was performed following the uneventful intravenous administration of 100 cc of Omnipaque 350. Thin section axial images were obtained from the lung bases through the pubic symphysis. Oral contrast was not administered. Please note that all CT scans at this facility use dose modulation, iterative reconstruction, and/or weight-based dosing when appropriate to reduce radiation dose to as low as reasonably achievable. FINDINGS: LUNG BASES: The lung bases as visualized appear normal.The heart size is normal at the lung bases. Small hiatal hernia. Thickening of the distal esophagus probably chronic reflux associated change. LIVER/BILIARY SYSTEM:Hepatic steatosis. Hepatic cyst. Otherwise, unremarkable appearing liver. The gallbladder appears normal. No intra or extrahepatic biliary ductal dilation. ADRENALS: Normal KIDNEYS, URETERS and BLADDER:Normal-sized kidneys. Renal cortical scarring especially on the right. No focal mass. No hydronephrosis. The bladder appears normal. No significant wall thickening and no gas within the bladder. SPLEEN:Normal appearance. PANCREAS: Appears normal. RETROPERITONEUM and MESENTERY: There is no mass, adenopathy or aortic aneurysm. Moderate to severe diffuse atherosclerotic vascular calcifications throughout the abdomen and pelvis. Similar to the prior study GASTROINTESTINAL SYSTEM: There are findings likely related to partial colonic resection in the region of the sigmoid. The anastomosis appears intact. There is diverticulosis but no evidence of diverticulitis. There is no evidence of obstruction of large bowel or small bowel. A right lower quadrant stoma is noted. There is a parastomal hernia admitting fat and a loop of small bowel but no definite upstream obstruction. PELVIS: Inflammatory changes and trace fluid but no collection. Significantly improved since the prior study. OSSEOUS STRUCTURES and ABDOMINAL WALL: No destructive process of bone. Postoperative changes of the anterior abdominal wall including a small amount of fluid but not walled-off with an enhancing margin which would suggest an abscess. These are probably seromas or hematomas. Wall defect. OTHER: No free fluid or free air. IMPRESSION: 1. There has been interval resection of the inflamed portion of the sigmoid. The anastomotic site between the rectum and sigmoid shows no abnormal findings. Persistent but markedly improved inflammatory changes in the pelvis. No evidence of acute diverticulitis or collection within the abdomen or pelvis. 2. Right lower quadrant stoma. There is a parastomal hernia admitting a loop of small bowel and fat but no definite upstream dilation to suggest obstruction. 3. The bladder now appears normal without wall thickening or gas within the bladder. 4. Small hiatal hernia and evidence of chronic reflux. 5. Other incidental nonacute appearing findings as above. Please note that all CT scans at this facility use dose modulation, iterative reconstruction, and/or weight-based dosing when appropriate to reduce radiation dose to as low as reasonably achievable. Dictated by Denys Agrawal MD @ 07/13/2024 10:11:57 AM (Electronically Signed)
[2024-07-13] MEDS: ONDANSETRON ODT 4 MG TAB PO (09:05)
[2024-07-13 09:10] LABS: Basophils Percent Auto 0.1 % (0.0-3.0); Eosinophils Percent Auto 0.2 % (0.0-7.0); Hematocrit 46.6 % (37.0-53.0); Immature Granulocytes Pct Auto 0.6 %; Lymphocytes Percent Auto 10.1 % (20-44); Mean Corpuscular HGB Conc 34 gm/dL (32-36); Mean Corpuscular Hemoglobin 31 pg (26-34); Mean Corpuscular Volume 91 fL (80-100); Monocytes Percent Auto 6.1 % (0.0-11.0); Neutrophils Percent Auto 82.9 % (42.0-72.0); Platelet Count* 518 K/uL (140-440); Red Blood Count 5.12 m/uL (4.30-5.90)
[2024-07-13 09:14] LABS: Slide Review Reflex No
[2024-07-13 09:20] LABS: Albumin* 4.6 g/dL (3.3-5.0); Chloride* 93 mmol/L (96-114); Potassium* 4.3 mmol/L (3.6-5.1); Sodium* 128 mmol/L (135-149)
[2024-07-13 09:22] LABS: Creatinine* 1.5 mg/dL (0.5-1.5); Est. Creatinine Clearance* 47.41; Estimated Glomerular Filt Rate 49 ml/min
[2024-07-13 09:23] LABS: Alkaline Phosphatase* 79 U/L (40-150); Anion Gap 14 mEq/L (7-15); Aspartate Amino Transferase* 41 U/L (12-35); Bilirubin Total* 0.4 mg/dL (0.1-1.5); Blood Urea Nitrogen* 72 mg/dL (7-30); Calcium* 10.5 mg/dL (8.4-10.6); Carbon Dioxide* 21 mmol/L (20-32); Glucose* 108 mg/dL (60-115); Lipase* 130 U/L (23-300)
[2024-07-13 09:24] LABS: Alanine Aminotransferase* 53 U/L (4-50)
[2024-07-13 10:00] LABS: Appearance Urine Clear (Clear); Bilirubin Urine Negative (Negative); Blood Urine Negative (Negative); Color Urine Dark yellow (Yellow); Glucose Urine 2+ (Negative); Ketones Urine Negative (Negative); Leukocyte Esterase Urine Negative (Negative); Nitrite Urine Negative (Negative); Protein Urine 1+ (Negative); Specific Gravity Urine 1.025 (1.000-1.030); Urobilinogen Urine 0.2 (0.2-1.0); pH Urine 5.5 (5.0-8.5)
[2024-07-13 10:09] LABS: RBC Urine 0-2 (0-2)
[2024-07-13 10:10] LABS: Mucus Urine Many; Squamous Epithelial Cell Urine Few (None-Few); WBC Urine 0-2 (0-5)
[2024-07-13 10:11] LABS: Coarse Granular Casts Urine Few; Fine Granular Casts Urine Many
== END 2024-07-13 11:19 | disposition home or self-care (01) ==
PROVIDERS: Emergency Provider Emergency Medicine
DX: K43.2 Incisional hernia without obstruction or gangrene (principal)
CPT/HCPCS: 36415; 74177; 80053; 81001; 83690; 85025; 99283; 99284; A9270; Q9967

== ENCOUNTER 2024-07-16 06:33 | Emergency (ER) | payer OTHER, SELFPAY ==
[2024-07-16] VITALS (14 sets, daily range): BP systolic 71–138; BP diastolic 45–78; PULSE 56–110; RESP 16–24; TEMP 35.8–35.9; O2SAT 96–99
[2024-07-16] MEDS: 0.9 % SODIUM CHLORIDE 1000 ml 1,000 ML IV (06:50)
--- NOTE | 2024-07-16 06:51 | ED.GENADULT ---
HPI - General Adult General Date Seen: 07/16/24 <Gretta Covarrubias MD - Last Filed: 07/17/24 11:08> Chief complaint: Nausea/Vomiting <Gretta Covarrubias MD - Last Filed: 07/17/24 11:08> Stated complaint: Diverticulitis <Gretta Covarrubias MD - Last Filed: 07/17/24 11:08> Time Seen by Provider: 07/16/24 06:38 <Gretta Covarrubias MD - Last Filed: 07/17/24 11:08> Source: patient, RN notes reviewed and old records reviewed <Gretta Covarrubias MD - Last Filed: 07/17/24 11:08> Mode of arrival: ambulatory <Gretta Covarrubias MD - Last Filed: 07/17/24 11:08> Limitations: no limitations <Gretta Covarrubias MD - Last Filed: 07/17/24 11:08> History of Present Illness HPI narrative: Patient is a 73-year-old male with recent complex past medical history including diverticulitis with colovesicular fistula, it sounds like multiple [facility] to [facility] this. He was here 3 days ago on July 13 due to nausea, HPI in part from that visit as follows: I do not have records from the [facility]. History is from the patient. He does not seem to fully understand what happened. It sounds like he was hospitalized at the [facility] for several weeks. He was treated with IV antibiotics and had what sounds like a percutaneous drain placed by Interventional Radiology. That drain was removed, but apparently the infection or abscess recurred so he had a 2nd drain placed. He has been in out of the hospital [facility] since March. He finally had an open operation on July 03. He says he thinks the removed part of his colon. He says they took part of his small intestine and antacid to his large intestine to make an ostomy which is coming out in his right lower quadrant. They fixed his bladder. He sliced the jeannine in place and is due for his postop check next week He says he has had trouble with nausea throughout the entire course of his diverticulitis and it has been going on for several months. It is still going on since his surgery in since he was discharged from the [facility] 4 days ago, on [facility]. He says he is able eat and drink but then feels really sick after eats. Sometimes he throws up. He is not having a fever. He is not having much abdominal pain. He says he took a few Tylenol for his abdominal pain but otherwise has need any other pain medicine. He is having liquidy brownish greenish stool in his ostomy. Last night he passed some stool per rectum. He is not really able to describe stool. He says it was liquidy, like diarrhea. I tried to get the patient described it more to figure out if it is just rectal mucus or if there is actually drainage of feces which would suggest a new fistula or abscess. He really cannot quantify ordered further described the stool other than saying it is liquidy. He was discharged home at that visit after having reassuring labs and CT. He felt improved after Zofran here, was prescribed Zofran for home, but says that it did not help at all at home. He comes in today because of ongoing nausea, inability to eat and drink, weakness, weight loss, ongoing liquidy stools which he says now have turned black ?again. He does not have significant abdominal pain, he primarily is bothered by the nausea although he says he has little bit of genevieve-incisional pain that comes and goes. He has not had any vomiting. He says he had a piece of toast yesterday. Notes that he has had the 60-70 lb weight loss over the course of these past few months. He has not had a fever that he knows of although he has felt cold and has had some sweats. He denies lower extremity swelling or pain. He has not had chest pain or cough. He feels somewhat short of breath he says when he moves although mostly what he describes as fatigue with any activity. He is not short of breath at this moment. <Gretta Covarrubias MD - Last Filed: 07/17/24 11:08> Related Data Home medications: Home Medications ?Medication ?Instructions ?Recorded ?Confirmed aspirin 81 mg tablet,delayed 81 mg PO DAILY 09/04/22 09/30/22 release (Adult Aspirin Regimen) nitroglycerin 0.4 mg sublingual 0.4 mg sublingual Q5M PRN 09/13/22 09/30/22 tablet polyethylene glycol 17 ea miscellaneous .QD 09/13/22 09/30/22 psyllium 1 tbsp PO ONCE 09/13/22 09/30/22 Previous Rx's ?Medication ?Instructions ?Recorded atorvastatin 40 mg tablet 40 mg PO DAILY #90 tabs 09/13/22 dicyclomine 10 mg capsule 10 mg PO BID PRN abd pain #60 caps 09/13/22 empagliflozin 25 mg tablet 12.5 mg (1/2 x 25 mg) PO DAILY #45 09/13/22 tabs furosemide 20 mg tablet 20 mg PO DAILY #90 tabs 09/13/22 isosorbide mononitrate 30 mg 30 mg PO QDAY #90 tabs 09/13/22 tablet,extended release 24 hr lisinopril 10 0.5 tab PO DAILY #45 tabs 09/13/22 mg-hydrochlorothiazide 12.5 mg tablet ondansetron 4 mg disintegrating 4 mg PO Q6H PRN nausea and 09/13/22 tablet vomiting #60 tabs spironolactone 25 mg tablet 12.5 mg (1/2 x 25 mg) PO DAILY #45 09/13/22 tabs ondansetron HCl 4 mg tablet 4 mg PO Q8H PRN nausea and 07/13/24 vomiting 4 days #10 tabs <Gretta Covarrubias MD - Last Filed: 07/17/24 11:08> Allergies/adverse reactions: Allergies Allergy/AdvReac Type Severity Reaction Status Date / Time terazosin Allergy Unknown Verified 07/13/24 09:53 <Gretta Covarrubias MD - Last Filed: 07/17/24 11:08> Review of Systems Status of ROS: Reports: 10 or more systems reviewed and unremarkable except as noted in History and below <Gretta Covarrubias MD - Last Filed: 07/17/24 11:08> [facility] Medical History: Medical History Chronic constipation ?K59.09 - Other constipation (ICD-10) Pancreatic cyst ?K86.2 - Cyst of pancreas (ICD-10) Infarction of kidney ?N28.0 - Ischemia and infarction of kidney (ICD-10) Hiatal hernia ?K44.9 - Diaphragmatic hernia without obstruction or gangrene (ICD-10) Multiple lung nodules ?R91.8 - Other nonspecific abnormal finding of lung field (ICD-10) BPH (benign prostatic hyperplasia) ?N40.0 - Benign prostatic hyperplasia without lower urinary tract symptoms (ICD-10) Adenoma of left adrenal gland ?D35.02 - Benign neoplasm of left adrenal gland (ICD-10) History of kidney stones ?Z87.442 - Personal history of urinary calculi (ICD-10) CHF (congestive heart failure) ?I50.9 - Heart failure, unspecified (ICD-10) Edema ?R60.9 - Edema, unspecified (ICD-10) IBS (irritable bowel syndrome) ?K58.9 - Irritable bowel syndrome without diarrhea (ICD-10) CAD (coronary artery disease) ?I25.10 - Atherosclerotic heart disease of [place] coronary artery without angina pectoris (ICD-10) Obstructive sleep apnea syndrome ?G47.33 - Obstructive sleep apnea (adult) (pediatric) (ICD-10) Neck pain ?M54.2 - Cervicalgia (ICD-10) Impulse control disorder ?F63.9 - Impulse disorder, unspecified (ICD-10) Hypertension ?I10 - Essential (primary) hypertension (ICD-10) Hyperlipidemia ?E78.5 - Hyperlipidemia, unspecified (ICD-10) History of vitamin D deficiency ?Z86.39 - Personal history of other endocrine, nutritional and metabolic disease (ICD-10) History of marijuana use ?F12.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, unspecified, in remission (ICD-10) Diverticulitis of sigmoid colon ?K57.32 - Diverticulitis of large intestine without perforation or abscess without bleeding (ICD-10) Common iliac aneurysm ?I72.3 - Aneurysm of iliac artery (ICD-10) Chronic low back pain ?M54.50 - Low back pain, unspecified (ICD-10) ?G89.29 - Other chronic pain (ICD-10) Leukocytosis ?D72.829 - Elevated white blood cell count, unspecified (ICD-10) Anemia ?D64.9 - Anemia, unspecified (ICD-10) <Gretta Covarrubias MD - Last Filed: 07/17/24 11:08> Surgical History: Surgical History History of heart artery stent ?Z95.5 - Presence of coronary angioplasty implant and graft (ICD-10) History of spinal surgery ?Z98.890 - Other specified postprocedural states (ICD-10) History of hemorrhoids ?Z87.19 - Personal history of other diseases of the digestive system (ICD-10) History of carpal tunnel surgery ?Z98.890 - Other specified postprocedural states (ICD-10) <Gretta Covarrubias MD - Last Filed: 07/17/24 11:08> Social History: Social History Smoking Status: Current some day smoker What tobacco products do you use: cigarettes Smoking quit date/years: >15 years ago Do you use any of these nicotine containing products: None Second hand tobacco smoke exposure: No How often do you have a drink containing alcohol: monthly or less How many standard drinks containing alcohol do you have on a typical day: 1 or 2 How often do you have six or more drinks on one occasion: Never AUDIT-C Alcohol total score: 1 Non-prescribed substance use: marijuana (any form) service: Yes <Gretta Covarrubias MD - Last Filed: 07/17/24 11:08> Exam Narrative: Exam Narrative: Vital signs reviewed In general, alert, nontoxic male. Head: Normocephalic, atraumatic. Eyes: Sclera clear. Pupils equal and reactive. ENT: Mucous membranes moist. Neck: Supple without adenopathy. Heart: Regular rate and rhythm without murmur. Lungs: Clear. No increased work of breathing, crackles or wheezes. Abdomen: Healing midline incision without significant erythema. Abdomen really is nontender to palpation, no rebound guarding or rigidity. He has an ostomy in the right lower quadrant with dark brown liquid stool. No melena. No visible blood. Extremities: Well perfused, pulses intact. No significant edema. Neurologic: Alert, conversant. Speech fluent, face symmetric. Moves all extremities equally. Skin: Warm, dry well perfused. Affect: Normal. <Gretta Covarrubias MD - Last Filed: 07/17/24 11:08> Const: Vital Signs, click to edit/add: Vital Signs - 24 hr 07/16/24 06:52 07/16/24 06:59 07/16/24 07:02 Temperature 96.5 F L Pulse Rate 64 Pulse Rate [Right Pulse Oximeter] 110 H Respiratory Rate 24 Blood Pressure 107/69 Blood Pressure [Ri ght Upper Arm] 71/45 L Pulse Oximetry 96 97 96 Oxygen Delivery Me thod Room Air 07/16/24 07:17 07/16/24 07:33 07/16/24 07:47 Temperature Pulse Rate 62 61 63 Pulse Rate [Right Pulse Oximeter] Respiratory Rate Blood Pressure 116/69 125/68 123/78 Blood Pressure [Ri ght Upper Arm] Pulse Oximetry 96 97 99 Oxygen Delivery Me thod 07/16/24 08:11 07/16/24 08:32 Temperature Pulse Rate 63 59 L Pulse Rate [Right Pulse Oximeter] Respiratory Rate 20 Blood Pressure 135/72 138/70 Blood Pressure [Ri ght Upper Arm] Pulse Oximetry 98 96 Oxygen Delivery Me thod <Gretta Covarrubias MD - Last Filed: 07/17/24 11:08> Vital Signs, click to edit/add: Vital Signs - 24 hr 07/16/24 06:52 07/16/24 06:59 07/16/24 07:02 Temperature 96.5 F L Pulse Rate 64 Pulse Rate [Right Pulse Oximeter] 110 H Respiratory Rate 24 Blood Pressure 107/69 Blood Pressure [Ri ght Upper Arm] 71/45 L Pulse Oximetry 96 97 96 Oxygen Delivery Me thod Room Air 07/16/24 07:17 07/16/24 07:33 07/16/24 07:47 Temperature Pulse Rate 62 61 63 Pulse Rate [Right Pulse Oximeter] Respiratory Rate Blood Pressure 116/69 125/68 123/78 Blood Pressure [Ri ght Upper Arm] Pulse Oximetry 96 97 99 Oxygen Delivery Me thod 07/16/24 08:11 07/16/24 08:32 Temperature Pulse Rate 63 59 L Pulse Rate [Right Pulse Oximeter] Respiratory Rate 20 Blood Pressure 135/72 138/70 Blood Pressure [Ri ght Upper Arm] Pulse Oximetry 98 96 Oxygen Delivery Me thod <Palmira Arriaga MD - Last Filed: 07/19/24 08:23> Documenting provider has reviewed patient's vital signs: yes <Gretta Covarrubias MD - Last Filed: 07/17/24 11:08> Course Course ED Course: Patient presents with ongoing nausea, liquid stools, failure to thrive post significant abdominal surgeries in the past couple of months. I think it is worth checking is C diff as well as labs, will give some fluids. Initial blood pressure was 71 systolic but a repeat was 108 systolic. There may be a component of orthostasis here. Records reviewed from the , he did have an elevated white blood cell count at that time of 17,000, but CT scan showed no evidence of diverticulitis, the bladder repair looks intact, stoma looked intact, he had a peristomal hernia but no evidence of obstruction. [facility] Labs are notable for a markedly elevated white blood cell count today of 23,000, sodium of 123 down from 128 a few days ago, a creatinine up to 2.9 up from 1 point 2 a few days ago. I think he will at a minimum require admission for hydration for acute kidney injury and hypo natremia, however a he does need repeat imaging of his abdomen given this elevated white blood cell count. His C diff is pending as well. His blood pressures have been stable since that initial blood pressure reading, he is no longer tachycardic. I am giving normal saline, but I am holding off on antibiotics until we see how the C diff looks. If that is negative then I would start antibiotics for possible sepsis but if positive I think we could reasonably treat him for C diff colitis. Final determination as to whether he is admitted here versus transfer to the [facility] will depend on a number of factors including his CT scan and bed availability at the [facility]. this is being signed out to the oncoming physician for final disposition. <Gretta Covarrubias MD - Last Filed: 07/17/24 11:08> Consultations Consultation #1: Spoke with Alex BOYER and Dr. Soto the nuclear medical technologist of the day from the [facility]. Almost 14 minute conversation in sign-out of this patient. Is agreed to initiate Zosyn and vanco for infection of unknown etiology at this time. Will see if nursing staff can do cath urinalysis to collect UA. Patient has acute kidney injury, likely dehydration but also hyponatremia with sodium of 123. This needs to be corrected slowly. His lactate has went from 3.9-1.6 with 1 L of IV fluids. Will initiate low-dose maintenance for him at this time. [facility] and we can transfer once we have that. <Palmira Arriaga MD - Last Filed: 07/19/24 08:23> Time: 09:09 <Palmira Arriaga MD - Last Filed: 07/19/24 08:23> Vital Signs Vital signs: Initial Vital Signs Temperature 96.5 F L 07/16/24 06:52 Temperature Source Temporal Artery Scan 07/16/24 06:52 Pulse Rate 110 H 07/16/24 06:52 Respiratory Rate 24 07/16/24 06:52 Blood Pressure 71/45 L 07/16/24 06:52 Blood Pressure Mean 53 L 07/16/24 06:52 Blood Pressure Position Sitting 07/16/24 06:52 Pulse Oximetry 96 07/16/24 06:52 Oxygen Delivery Method Room Air 07/16/24 06:52 Vital Signs Temperature 96.5 F L 07/16/24 06:52 Pulse Rate 110 H 07/16/24 06:52 Respiratory Rate 24 07/16/24 06:52 Blood Pressure 71/45 L 07/16/24 06:52 Pulse Oximetry 96 07/16/24 06:52 Oxygen Delivery Method Room Air 07/16/24 06:52 Temperature 96.7 F L 07/16/24 09:57 Pulse Rate 56 L 07/16/24 10:15 Respiratory Rate 16 07/16/24 09:32 Blood Pressure 115/56 L 07/16/24 10:02 Pulse Oximetry 96 07/16/24 10:15 Oxygen Delivery Method Room Air 07/16/24 06:52 <Gretta Covarrubias MD - Last Filed: 07/17/24 11:08> Initial Vital Signs Temperature 96.5 F L 07/16/24 06:52 Temperature Source Temporal Artery Scan 07/16/24 06:52 Pulse Rate 110 H 07/16/24 06:52 Respiratory Rate 24 07/16/24 06:52 Blood Pressure 71/45 L 07/16/24 06:52 Blood Pressure Mean 53 L 07/16/24 06:52 Blood Pressure Position Sitting 07/16/24 06:52 Pulse Oximetry 96 07/16/24 06:52 Oxygen Delivery Method Room Air 07/16/24 06:52 Vital Signs Temperature 96.5 F L 07/16/24 06:52 Pulse Rate 110 H 07/16/24 06:52 Respiratory Rate 24 07/16/24 06:52 Blood Pressure 71/45 L 07/16/24 06:52 Pulse Oximetry 96 07/16/24 06:52 Oxygen Delivery Method Room Air 07/16/24 06:52 Temperature 96.7 F L 07/16/24 09:57 Pulse Rate 56 L 07/16/24 10:15 Respiratory Rate 16 07/16/24 09:32 Blood Pressure 115/56 L 07/16/24 10:02 Pulse Oximetry 96 07/16/24 10:15 Oxygen Delivery Method Room Air 07/16/24 06:52 <Palmira rAriaga MD - Last Filed: 07/19/24 08:23> Medications Administered Medications: Discontinued Medications Generic Name Dose Route Start Last Admin Trade Name Freq PRN Reason Stop Dose Admin Sodium Chloride 1,000 mls @ 1,000 mls/hr 07/16/24 06:45 07/16/24 09:05 0.9 % Sodium Chloride 1000 Ml IV 07/16/24 07:44 Infused .Q1H [place] Infusion Metoclopramide HCl 10 mg/ 102 mls @ 306 mls/hr 07/16/24 06:45 07/16/24 07:55 Sodium Chloride IVPB 07/16/24 06:46 Infused ONCE ONE Infusion Sodium Chloride 1,000 mls @ 125 mls/hr 07/16/24 09:17 07/16/24 09:50 0.9 % Sodium Chloride 1000 Ml IV 125 mls/hr .Q8H [place] Administration Piperacillin Sod/Tazobactam 100 mls @ 200 mls/hr 07/16/24 09:16 07/16/24 10:35 Sod 3.375 gm/ Sodium Chloride IVPB 07/16/24 09:17 Infused ONCE ONE Infusion Vancomycin/PEG/NADA/Lysine/Water 1.75 gm in 350 mls @ 233.333 mls/hr 07/16/24 09:45 07/16/24 10:33 Vancomycin 1.75 Gm/350 Ml IVPB 07/16/24 11:14 233.33 mls/hr ONCE ONE Administration IV Miscellaneous Supplies 1 each 07/16/24 09:20 07/16/24 09:53 Pharmacist Consult MC Not Given Q24H [place] Protocol Morphine Sulfate 4 mg 07/16/24 08:14 07/16/24 08:23 Morphine 4 Mg/Ml Inj IVP 07/16/24 08:15 4 mg ONCE ONE Administration <Gretta Covarrubias MD - Last Filed: 07/17/24 11:08> Discontinued Medications Generic Name Dose Route Start Last Admin Trade Name Sunil PRN Reason Stop Dose Admin Sodium Chloride 1,000 mls @ 1,000 mls/hr 07/16/24 06:45 07/16/24 09:05 0.9 % Sodium Chloride 1000 Ml IV 07/16/24 07:44 Infused .Q1H [place] Infusion Metoclopramide HCl 10 mg/ 102 mls @ 306 mls/hr 07/16/24 06:45 07/16/24 07:55 Sodium Chloride IVPB 07/16/24 06:46 Infused ONCE ONE Infusion Sodium Chloride 1,000 mls @ 125 mls/hr 07/16/24 09:17 07/16/24 09:50 0.9 % Sodium Chloride 1000 Ml IV 125 mls/hr .Q8H [place] Administration Piperacillin Sod/Tazobactam 100 mls @ 200 mls/hr 07/16/24 09:16 07/16/24 10:35 Sod 3.375 gm/ Sodium Chloride IVPB 07/16/24 09:17 Infused ONCE ONE Infusion Vancomycin/PEG/NADA/Lysine/Water 1.75 gm in 350 mls @ 233.333 mls/hr 07/16/24 09:45 07/16/24 10:33 Vancomycin 1.75 Gm/350 Ml IVPB 07/16/24 11:14 233.33 mls/hr ONCE ONE Administration IV Miscellaneous Supplies 1 each 07/16/24 09:20 07/16/24 09:53 Pharmacist Consult MC Not Given Q24H [facility] Protocol Morphine Sulfate 4 mg 07/16/24 08:14 07/16/24 08:23 Morphine 4 Mg/Ml Inj IVP 07/16/24 08:15 4 mg ONCE ONE Administration <Palmira Arriaga MD - Last Filed: 07/19/24 08:23> Medical Decision Making Lab Data Labs: Lab Results 07/16/24 07/16/24 07/16/24 Range/Units 06:44 07:50 08:57 WBC 23.26 H (4.50-11.00) K/uL RBC 5.68 (4.30-5.90) m/uL Hgb 17.5 (13.5-17.5) gm/dL Hct 50.3 (37.0-53.0) % MCV 89 (80-100) fL MCH 31 (26-34) pg MCHC 35 (32-36) gm/dL RDW Coeff of [place] 13.8 (11.5-15.5) % Plt Count 589 H (140-440) K/uL Neut % (Auto) 84.6 H (42.0-72.0) % Lymph % (Auto) 6.8 L (20-44) % [place]olls % (Auto) 7.1 (0.0-11.0) % Eos % (Auto) 0.1 (0.0-7.0) % Baso % (Auto) 0.0 (0.0-3.0) % Neut # (Auto) 19.70 H (1.7-7.0) K/uL Lymph # (Auto) 1.60 (0.90-2.90) K/uL [place] # (Auto) 1.70 H (0.00-0.90) K/UL Eos # (Auto) 0.00 (0.00-0.50) K/uL Baso # (Auto) 0.00 (0.00-0.30) K/uL Abs Immat Gran (auto) 0.30 (0.00-0.30) K/uL Imm/Tot Granulo (auto) 1.4 % Sodium 123 L* (135-149) mmol/L Potassium 4.7 (3.6-5.1) mmol/L Chloride 85 L (96-114) mmol/L Carbon Dioxide 20 (20-32) mmol/L Anion Gap 18 H (7-15) mEq/L BUN 100 H (7-30) mg/dL Creatinine 2.9 H (0.5-1.5) mg/dL Estimated GFR 22 ml/min Glucose 135 H (60-115) mg/dL Lactate 3.9 H 1.6 (0.5-1.9) mmol/L Calcium 10.3 (8.4-10.6) mg/dL Troponin I 0.03 (0.01-0.04) ng/mL C-Reactive Protein 1.0 (0.5-1.0) mg/dL Stl C. diff Tox B Gene Negative (Negative) Stl C. diff 027-NAP1-BI PRESUMPTIVE NEGATIVE (Negative) <Gretta Covarrubias MD - Last Filed: 07/17/24 11:08> Lab Results 07/16/24 07/16/24 07/16/24 Range/Units 06:44 07:50 08:57 WBC 23.26 H (4.50-11.00) K/uL RBC 5.68 (4.30-5.90) m/uL Hgb 17.5 (13.5-17.5) gm/dL Hct 50.3 (37.0-53.0) % MCV 89 (80-100) fL MCH 31 (26-34) pg MCHC 35 (32-36) gm/dL RDW Coeff of [place] 13.8 (11.5-15.5) % Plt Count 589 H (140-440) K/uL Neut % (Auto) 84.6 H (42.0-72.0) % Lymph % (Auto) 6.8 L (20-44) % [place] % (Auto) 7.1 (0.0-11.0) % Eos % (Auto) 0.1 (0.0-7.0) % Baso % (Auto) 0.0 (0.0-3.0) % Neut # (Auto) 19.70 H (1.7-7.0) K/uL Lymph # (Auto) 1.60 (0.90-2.90) K/uL [place] # (Auto) 1.70 H (0.00-0.90) K/UL Eos # (Auto) 0.00 (0.00-0.50) K/uL Baso # (Auto) 0.00 (0.00-0.30) K/uL Abs Immat Gran (auto) 0.30 (0.00-0.30) K/uL Imm/Tot Granulo (auto) 1.4 % Sodium 123 L* (135-149) mmol/L Potassium 4.7 (3.6-5.1) mmol/L Chloride 85 L (96-114) mmol/L Carbon Dioxide 20 (20-32) mmol/L Anion Gap 18 H (7-15) mEq/L BUN 100 H (7-30) mg/dL Creatinine 2.9 H (0.5-1.5) mg/dL Estimated GFR 22 ml/min Glucose 135 H (60-115) mg/dL Lactate 3.9 H 1.6 (0.5-1.9) mmol/L Calcium 10.3 (8.4-10.6) mg/dL Troponin I 0.03 (0.01-0.04) ng/mL C-Reactive Protein 1.0 (0.5-1.0) mg/dL Stl C. diff Tox B Gene Negative (Negative) Stl C. diff 027-NAP1-BI PRESUMPTIVE NEGATIVE (Negative) <Palmira Arriaga MD - Last Filed: 07/19/24 08:23> Imaging Data CT scan - abdomen: Attestation: I have reviewed the pertinent imaging results. 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 Site :?[id number] Study:?CT-Abdomen/Pelvis W/O-07/16/2024 8:04:56 AM Ordering Physician:Hu Glynn Final Report: INDICATION: Nausea. Leukocytosis. Recent abdominal surgery. COMPARISON: July 13, 2024. TECHNIQUE: CT examination of the abdomen and pelvis was performed without intravenous contrast. Thin section axial images were obtained from the lung bases through the pubic symphysis. Oral contrast was not administered. Please note that all CT scans at this facility use dose modulation, iterative reconstruction, and/or weight-based dosing when appropriate to reduce radiation dose to as low as reasonably achievable. FINDINGS: LUNG BASES: Minimal basilar atelectasis. Heart size unchanged. Hiatal hernia with evidence of reflux. Atherosclerotic vascular calcifications associated with the heart. LIVER/BILIARY SYSTEM:Hepatic cyst. Liver otherwise unremarkable. No biliary ductal dilation. The gallbladder appears normal. ADRENALS: No significant findings. Benign low-density nodularity identified. This is usually due to lipid rich adenomas. KIDNEYS, URETERS and BLADDER:Renal cortical scarring, especially on the right. No hydronephrosis or hydroureter. Residual contrast within the bladder presumably from the July 13 examination. Prominent prostate. SPLEEN:Normal non-contrast appearance. PANCREAS: Normal non-contrast appearance. RETROPERITONEUM and MESENTERY: There is no mass, adenopathy or aortic aneurysm. Atherosclerotic vascular calcification GASTROINTESTINAL SYSTEM: There are postsurgical changes identified. There is an anastomotic site in the region of the rectosigmoid which appears to be intact. No regional collection. No significant upstream dilation of bowel. There is a right lower quadrant stoma with parastomal hernia admitting fat and bowel. This does not appear to be obstructive or incarcerated. PELVIS: Mild inflammatory change but no evidence of collection.. OSSEOUS STRUCTURES and ABDOMINAL WALL: No destructive process of bone.There is the parastomal hernia as mentioned above. There is also an incisional hernia which is new since the prior study. Small bowel loops now protruding into the hernia right behind the incision and extends to just behind the staple line. There is also mild inflammatory change in the anterior abdominal wall which is generally improved since the prior study. OTHER: No free fluid or free air. IMPRESSION: 1. Postsurgical changes related to the bowel. This includes a rectosigmoid anastomosis and a right lower quadrant stoma. No specific abnormality identified in the region of the anastomosis. At the right lower quadrant stoma, there is a hernia admitting fat and bowel but no evidence of necrosis, obstruction or incarceration. This is similar to the prior study. 2. Residual inflammatory change in the pelvis but similar to the prior study without collection. No worsening inflammatory finding identified. 3. Postsurgical changes in the anterior abdominal wall which have generally improved, specifically the amount of fluid in the anterior abdominal wall. 4. There is an incisional hernia which is new since the prior study. This admits peritoneum and small bowel which extends to just behind the skin staple line. 5. Other nonacute appearing findings as discussed in the body of the report similar to the prior exam. Pacer via the comments Please note that all CT scans at this facility use dose modulation, iterative reconstruction, and/or weight-based dosing when appropriate to reduce radiation dose to as low as reasonably achievable. Dictated by Denys Agrawal MD @ 07/16/2024 8:15:19 AM (Electronic Signature) <Palmira Arriaga MD - Last Filed: 07/19/24 08:23> Discharge Plan Discharge Patient Disposition: [facility] <Gretta Covarrubias MD - Last Filed: 07/17/24 11:08>
[2024-07-16 06:57] LABS: Eosinophils Percent Auto 0.1 % (0.0-7.0); Hematocrit 50.3 % (37.0-53.0); Hemoglobin* 17.5 gm/dL (13.5-17.5); Immature Granulocytes Pct Auto 1.4 %; Lymphocytes Percent Auto 6.8 % (20-44); Mean Corpuscular HGB Conc 35 gm/dL (32-36); Mean Corpuscular Hemoglobin 31 pg (26-34); Mean Corpuscular Volume 89 fL (80-100); Monocytes Percent Auto 7.1 % (0.0-11.0); Neutrophils Percent Auto 84.6 % (42.0-72.0); Platelet Count* 589 K/uL (140-440); RDW Coefficient of Variation % 13.8 % (11.5-15.5); Red Blood Count 5.68 m/uL (4.30-5.90); White Blood Count* 23.26 K/uL (4.50-11.00)
[2024-07-16] MEDS: METOCLOPRAMIDE HCL 10 MG in 0.9 % SODIUM CHLORIDE 100 ml 100 ML 306 MG IVPB (07:00)
[2024-07-16 07:05] LABS: Chloride* 85 mmol/L (96-114); Potassium* 4.7 mmol/L (3.6-5.1)
--- OUTSIDE RECORDS SUMMARY | 2024-07-16 07:05 | XMS_ITS | Encounter Summary ---
Author Name [facility] Organization [facility] Address [address] [place] [address] Care Team Providers Care Svp Monetization Name Role Phone PREMA CABRERA Primary Care [...] PART A Sep 29, 2016 PART A [id number] [phone] JUDY WEAVER PATIENT Selected Encounter This section includes the information on record at [facility] for the Encounter. Date/Time Encounter Type Encounter Description Reason Provider Source Sep 21, 2023 07:15 AM MOD SED SAME PHYS/QHP 5/>YRS GI ENDOSCOPY ICD-10-CM K63.89 Other specified diseases of intestine SADIA ZAIDI Encounter Template Text not used by [place] Assessments - Encounter Diagnoses This section includes the primary and secondary diagnoses documented for the Encounter. Date/Time Primary/Secondary Diagnosis Diagnosis Name Provider Source Sep 21, 2023 12:55 PM PRIMARY Other specified diseases of intestine [facility] Sep 21, 2023 12:55 PM SECONDARY Abnormal findings on dx imaging of prt digestive tract [facility] Sep 21, 2023 12:55 PM SECONDARY Dvrtclos of lg int w/o perforation or abscess w/o bleeding [facility] Sep 21, 2023 12:55 PM SECONDARY 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 [facility] Sep 21, 2023 12:55 PM SECONDARY Other hemorrhoids [facility] Sep 21, 2023 12:55 PM SECONDARY Polyp of colon [facility] Plan of Treatment: Future Appointments (+ 6 months) and Future Tests (+/- 45 days) The Plan of Treatment section includes future care activities for the patient from [facility] This section includes future appointments and future orders which are active, pending or scheduled. Future Appointments This section includes appointments that were scheduled to occur 6 months from the date of the Encounter, up to a maximum of 20 appointments. The data comes from all [facility] facilities. Appointment Date/Time Appointment Type Appointme nt Facility Name Oct 05, 2023 02:00 PM AMBULATORY - MEDICINE [facility] Nov 29, 2023 07:45 AM AMBULATORY - SURGERY [facility] December 29, 2023 08:45 AM AMBULATORY - SURGERY [facility] January 24, 2024 07:00 AM AMBULATORY - NONE [facility] Jan 30, 2024 09:30 AM AMBULATORY - MEDICINE [facility] Social History: Smoking Status (Most current) [...] Facil ity May 06, 2023 11:30 AM [place]-TOBACCO QUIT 15 YRS OR MORE [facility] Tobacco Use History This section includes a history of the smoking, or tobacco-related health factors, that were collected on or before the date of the Encounter. The data comes from the [place] facility where the Encounter took place. Date/Time Smoking Status/Tobacco Use Comment F acility May 06, 2023 11:30 AM [place]-TOBACCO QUIT 15 YRS OR MORE [facility] Jun 04, 2022 09:00 AM VA-TOBACCO FORMER USER [facility] Jun 04, 2022 09:00 AM VA-TOBACCO QUIT 15 YRS OR MORE [facility] Jul 10, 2021 08:00 AM VA-TOBACCO FORMER USER [facility] Jul 10, 2021 08:00 AM VA-TOBACCO QUIT 5 TO < 15 YRS [facility] May 23, 2020 08:30 AM VA-TOBACCO FORMER USER [facility] May 23, 2020 08:30 AM VA-TOBACCO QUIT 5 TO < 15 YRS [facility] Mar 20, 2019 04:03 PM VA-TOBACCO FORMER USER [facility] Mar 20, 2019 04:03 PM VA-TOBACCO QUIT 5 TO < 15 YRS [facility] Mar 21, 2018 08:13 AM FORMER TOBACCO USER 7Y OR GREATE R [facility] Feb 24, 2017 09:24 AM FORMER TOBACCO USER 7Y OR GREATE R [facility] January 07, 2016 08:01 AM FORMER TOBACCO USE >1Y <7Y [facility] Feb 03, 2015 07:58 AM FORMER TOBACCO USE <1Y [facility] Feb 26, 2014 08:41 AM CURRENT TOBACCO USER [facility] May 13, 2011 01:45 PM CURRENT TOBACCO USER [facility] Advance Directives: All historical and current [...] Mar 23, 2016 CLINICAL WARNING [facility] Pathology Reports: +/- 30 days of [...] COSIGNER: URGENCY: STATUS: COMPLETED $APHDR Reporting Lab: [facility] [CLIA# [id number]] [place] [address] - - - - - - - [...] - - - PATHOLOGY REPORT Accession No. [id number] - - - - - - [...] TAM STAFF PATHOLOGIST, PATHOLOGY & LABORATORY [facility] Signed Sep 26, 2023@15:19 Performing Laboratory: Surgical Pathology Report Performed By: [facility] [CLIA# [id number]] [place] [address] $FTR - - - - - - [...] - - FLACA WEAVER STANDARD FORM 515 ID:[id number] SEX:M :1950 AGE: 72 LOC:[id number] PCP: Prema Cabrera /alexi/ ZAC TAM STAFF PATHOLOGIST, PATHOLOGY & LABORATORY [facility] Signed: 09/26/2023 15:19 ZAC TAM [facility] Encounter Notes: All associated encounter notes This section contains the clinical notes associated to the Encounter. Date/Time Encounter Note(s) Provider Source Sep 27, 2023 03:27 PM LETTERS: LOCAL TITLE: FOLLOW UP RESULTS LETTER STANDARD TITLE: LETTERS DATE OF NOTE: SEP 27, 2023@15:27 ENTRY DATE: SEP 27, 2023@15:27:09 AUTHOR: SADIA ZAIDI COSIGNER: URGENCY: STATUS: COMPLETED [facility] [address] [place] [address] Aug FLACA YAMIL WEAVER [address] [facility] [id number] Dear : I am writing to inform [...] reached at or toll free at [phone]. [phone]. Sincerely, SADIA ZAIDI MD GASTROENTEROLOGY STAFF PHYSICIAN SADIA ZAIDI [facility] Sep 21, 2023 08:15 AM GASTROENTEROLOGY [...] . No additional CRC surveillance recommended by incident response consultant. 9. Decreased vitamin D - 02.24.2017 Vitamin D 26ng/mL. 10. Aneurysm of common iliac artery - 03.21.2017 U/S: L 2.0. 02.13.2019 CT: 2.0cm(R/L). 05.05.2020 CT: 1.9cm(R/L). 07.16.2021 R GAIL 1.9cm. L GAIL 2.0cm. 11. Pain of both knees 12. History of surgery - 09.02.2014 Left CTR. 09.03.2015 Hemorrhoidectomy. 13. Wrist pain 14. Carpal tunnel syndrome - 11.28.2011 Abnormal LUE EMG (C-7 & Median N.). 01.15.2016 Abnormal RUE EMG(Median N.). 15. Steatosis of liver - By 02.13.[address] 16. Diverticular disease - By 02.13.[address] 03.14.2020 OSH(ED [place], [place]): Pt. Declined Admission. 03.14.2020 CT with Mild Sigmoid diverticulitis. 04.23.2020 ED([facility]): Declined admission. 17. 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 18. Ex-tobacco user 19. Impaired Fasting Glucose ([facility] [id number]) - 02.26.2014 A1c 5.8%. 20. Adrenal mass [...] recommended. 24. Hiatal hernia 25. Shoulder Pain ([facility] [id number]) 26. Trigger finger 27. [facility] Primary: Dr. Cathi Simeon, [facility], [place] [address]. Active Outpatient Medications (including Supplies): Active Outpatient [...] 12.53 (09/01/22) 9.88 (05/06/23) Other Lab tests: [place] [employer]hesi[employer] (ASA) Classification: III SPN [...] viewed in the Reports tab-->procedures or in [facility]. /es/ SADIA ZAIDI MD GASTROENTEROLOGY STAFF PHYSICIAN Signed: 09/21/2023 08:16 SADIA ZAIDI [facility]
--- OUTSIDE RECORDS SUMMARY | 2024-07-16 07:05 | XMS_ITS | Continuity of Care Document ---
Author Name [facility] Organization [facility] Care Team Providers Care Offset Lithographic Press Setter Name Role Phone [facility] Unavailable Unavailable Problems Combined list of problems [...] 11.24.2021 LDCT completed. 12 month surveillance recommended. [facility] Abdominal aortic aneurysm Active 05/05/20 20 Condition May 08, 2020 Entered By: MICHELL HWEELER Comment: 05.05.[address]: O.9cm thrombosed saccular aneurysm to distal abdominal aorta. [facility] Pancreatic cyst Active 05/05/20 20 Condition Jul 24, 2021 Entered By: MICHELL WHEELER Comment: 05.05.[address]: 0.7cm low-attenuatio n lesion tail of pancrease. Annual surveillance x 5 yr suggested for lesions < 1.5cm. 07.24.2021 CT completed. [facility] Diverticular disease Active 02/14/20 19 Condition 05/23/2020 Nov 13, 2020 Entered By: MICHELL WHEELER Comment: By 02.13.[address] 03.14.2020 [facility](ED [place], [place]): Pt. Declined Admission. 03.14.2020 CT with Mild Sigmoid diverticulitis . 04.23.2020 ED(OS[facility]): Declined admission. [facility] Steatosis of liver Active 02/14/20 19 Condition Feb 16, 2019 Entered By: MICHELL WHEELER Comment: By 02.13.[address] [facility] Decreased vitamin D Active 02/25/20 17 Condition Jul 13, 2021 Entered By: MICHELL WHEELER Comment: 02.24.2017 Vitamin D 26ng/mL. [facility] Colonoscopy normal Active 05/28/20 14 Condition Jul 07, 2020 Entered By: MICHELL WHEELER Comment: 05.28.2014 Procedure: No biopsies. 07.07.2020 Procedure: No Biopsoes . No additional CRC surveillance recommended by help desk consultant. [facility] Impaired Fasting Glucose (SCT [id number]) Active 02/27/20 14 Condition Jul 13, 2021 Entered By: MICHELL WHEELER Comment: 02.26.2014 A1c 5.8%. [facility] Carpal tunnel syndrome Active 11/29/19 12 Condition Jul 13, 2021 Entered By: MICHELL WHEELER Comment: 11.29.2011 Abnormal LUE EMG (C-7 & Median N.). 01.15.2016 Abnormal RUE EMG(Median N.). [facility] Adrenal mass Active Condition Jul 24, 2021 Entered By: MICHELL WHEELER Comment: 03.14.[address]: Stable 1.4cm L Adrenal Nodule. 05.05.[address]: 1.5cm L Adrenal Nodule. 07.24.2021 CT completed. [facility] Aneurysm of common iliac artery Active Condition Jul 16, 2021 Entered By: MICHELL WHEELER Comment: 03.21.2017 U/S: L 2.0. 02.13.2019 CT: 2.0cm(R/L). 05.05.2020 CT: 1.9cm(R/L). 07.16.2021 R GAIL 1.9cm. L GAIL 2.0cm. [facility] Cannabis misuse Active [facility] Cervicalgia Active Condition Apr 07, 2017 Entered By: MICHELL WHEELER Comment: 03.22.2017 C-S MRI: Advanced Cervical Spondylosis; Multi-level High Grade Foraminal Narrowing. [facility] Primary Care Active Condition 2022 Entered By: MICHELL WHEELER Comment: [facility] Primary: Dr. Cathi Simeon, [facility], [place] [address]. [facility] Coronary artery disease Active Condition Feb 24, 2017 Entered By: MICHELL WHEELER Comment: 03.23.2016 PCI: RCA stent(s). 12 month clopidogrel prescribed. [facility] Ex-tobacco user Active Condition [facility] Hiatal hernia Active Condition [facility] History of surgery Active Condition D 2017 Entered By: MICHELL WHEELER Comment: 09.02.2014 Left CTR. 09.03.2015 Hemorrhoidecto my. [facility] Hyperlipidemia Active Condition [facility] Hypertension Active Condition [facility] Impulse control disorder Active Condition [facility] Infarction of kidney Active Condition Feb 16, 2019 Entered By: MICHELL WHEELER Comment: By 02.13.[address]: Large old infarction interpolar region and upper pole of R kidney. [facility] Pain of both knees Active Condition [facility] Shoulder Pain (SCT [id number]) Active Condition [facility] Sleep apnea Active Condition Feb 24, 2017 Entered By: MICHELL WHEELER Comment: CPAP has been prescribed - not routinely using device. 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 w/o bleed Active Diagnosis [facility] Diagnosis: ICD-10-CM I50.22 Chronic systolic (congestive) heart failure Active Diagnosis [facility] Diagnosis: ICD-10-CM Z74.09 Other reduced mobility Active Diagnosis [facility] Diagnosis: ICD-10-CM Z73.6 Limitation of activities due to disability Active Diagnosis [facility] Diagnosis: ICD-10-CM Z51.89 Encounter for other specified aftercare Active Diagnosis [facility] Diagnosis: ICD-10-CM Z01.818 Encounter for other preprocedural examination Active Diagnosis [facility] Diagnosis: ICD-10-CM Z71.81 Spiritual or moravian counseling Active Diagnosis [facility] Admit Reason: DIVERTICULITIS Active Diagnosis [facility] Admit Reason: COMPLICATED DIVERTICULITIS Active Diagnosis [facility] Diagnosis: ICD-10-CM K57.20 Dvtrcli of lg int w perforation and abscess w/o bleeding Active Diagnosis [facility] Diagnosis: ICD-10-CM Z71.89 Other specified counseling Active Diagnosis [facility] Diagnosis: ICD-10-CM Z13.6 Encounter for screening for cardiovascular disorders Active Diagnosis [facility] Diagnosis: ICD-10-CM I10 Essential (primary) hypertension Active Diagnosis [facility] Diagnosis: ICD-10-CM R03.0 Elevated blood-pressure reading, w/o diagnosis of htn Active Diagnosis [facility] Diagnosis: ICD-10-CM R94.31 Abnormal electrocardiogram [ECG] [EKG] Active Diagnosis [facility] Diagnosis: ICD-10-CM I44.1 Atrioventricular block, second degree Active Diagnosis WILFREDO KHANNA [facility] Admit Reason: DIVERTICULITIS ABSC W/FIST Active Diagnosis [facility] Diagnosis: ICD-10-CM N32.81 Overactive bladder Active Diagnosis [facility] Diagnosis: ICD-10-CM I25.10 Athscl heart disease of [place] coronary artery w/o ang pctrs Active Diagnosis [facility] Diagnosis: ICD-10-CM H90.3 Sensorineural hearing loss, bilateral Active Diagnosis [facility] Diagnosis: ICD-10-CM Z01.118 Encntr for exam of ears and hearing w oth abnormal findings Active Diagnosis [facility] Diagnosis: ICD-10-CM K59.00 Constipation, unspecified Active Diagnosis [facility] Diagnosis: ICD-10-CM K63.89 Other specified diseases of intestine Active Diagnosis [facility] Diagnosis: ICD-10-CM Z72.0 Tobacco use Active Diagnosis [facility] Medications Combined list of outpatient medications from Department of Defense and [facility] Affairs facilities.Medications provided include 1) outpatient medications from the last 15 months, and 2) patient-reported medications. Medication Details Route Status Patient Instructions Prescription Expires Prescription Number Last Dispense Date Ordering Provider Order Date Order Qty Source ACETAMINOPH EN 325MG TAB TAKE TWO TABLETS BY MOUTH EVERY 6 HOURS NEEDED FOR PAIN ORAL DISCONT INUED 04/27/2025 [id number] 4 JOSE RANDOLPH 2023 300 [facility] ACETAMINOPH EN 500MG TAB TAKE TWO TABLETS BY MOUTH THREE TIMES A DAY NEEDED FOR PAIN ORAL ACTIVE 08/09/2024 [id number] 4 KAMILA RICHARDSON 2023 100 [facility] ACETAMINOPH EN 500MG TAB TAKE TWO TABLETS BY MOUTH THREE TIMES A DAY NEEDED FOR PAIN FOR PAIN ORAL DISCONT INUED 07/25/2024 [id number] KATELYNN PERSON A 2023 21 [place] [facility] AMOXICILLIN TRIHYDRATE 875MG/CLAVU LANATE K 125MG TAB TAKE 1 TABLET BY MOUTH TWICE A DAY INFECTIO N ORAL DISCONT INUED BY PROVIDE R 07/25/2024 [id number] 4 CHRISTIANKATELYNN CHARLES A 2023 20 [place] [facility] AMOXICILLIN TRIHYDRATE 875MG/CLAVU LANATE K 125MG TAB TAKE 1 TABLET BY MOUTH TWICE A DAY ORAL 05/26/2024 [id number] 4 JOSE RANDOLPH 2023 20 [facility] ASPIRIN 81MG TAB,EC TAKE ONE TABLET BY MOUTH EVERY MORNING FOR HEART DISEASE ORAL ACTIVE 10/05/2024 [id number] 4 MICHAEL ZAZUETA 2023 90 [facility] ATORVASTATI N CA 40MG TAB TAKE ONE-HALF TABLET BY MOUTH AT BEDTIME FOR CHOLESTE ROL ORAL 07/15/2024 [id number] 4 JATINDER BENITEZ 2022 45 [facility] ATROPINE SO4 0.025MG/DIP HENOXYLATE HCL 2.5MG TAB TAKE 1 TABLET BY MOUTH FOUR TIMES A DAY FOR DIARRHEA ORAL ACTIVE 08/09/2024 [id number] 4 KAMILA RICHARDSON 2023 56 [facility] BISACODYL 5MG TAB,EC TAKE TWO TABLETS BY MOUTH ONCE FOR COLON PREP ORAL 09/14/2023 [id number] PRAFUL RODRIGUEZ 2022 2 [facility] DOCUSATE NA 50MG/SENNOS IDES 8.6MG TAB TAKE 1 TABLET BY MOUTH AT BEDTIME NEEDED FOR CONSTIPA TION ORAL ACTIVE 08/06/2024 [id number] 4 MICHAEL ZAZUETA 2023 14 [place] [facility] DOCUSATE NA 50MG/SENNOS IDES 8.6MG TAB TAKE 1 TABLET BY MOUTH AT BEDTIME FOR CONSTIPA TION ORAL DISCONT INUED (EDIT) 07/25/2024 [id number] 4 KATELYNN PERSON 2023 14 [place] [facility] EMPAGLIFLOZ IN 25MG TAB TAKE ONE-HALF TABLET BY MOUTH EVERY DAY ORAL ACTIVE 01/16/2025 [id number] 4 JATINDER BENITEZ 2023 45 [place] [facility] EMPAGLIFLOZ IN 25MG TAB TAKE ONE-HALF TABLET BY MOUTH EVERY DAY ORAL 10/26/2023 [id number] 4 JATINDER BENITEZ 2022 45 [place] [facility] FUROSEMIDE 20MG TAB TAKE ONE TABLET BY MOUTH EVERY DAY FOR EXCESS FLUID ORAL HOLD 07/11/2025 [id number] KIN POLANCO 2023 90 [place] [facility] FUROSEMIDE 20MG TAB TAKE ONE TABLET BY MOUTH EVERY DAY FOR EXCESS FLUID ORAL DISCONT INUED (EDIT) 05/16/2025 [id number] 4 JATINDER BENITEZ 2023 90 [place] [facility] FUROSEMIDE 20MG TAB TAKE ONE TABLET BY MOUTH EVERY DAY NEEDED FOR EXCESS FLUID TAKE ONE TABLET FOR WEIGHT GAIN OF 3 POUNDS OVERNIGH T OR MORE THAN 5 POUNDS IN 1 WEEK OR LEG SWELLING ORAL DISCONT INUED 01/16/2025 [id number] 4 JATINDER BENITEZ 2023 90 [place] [facility] FUROSEMIDE 20MG TAB TAKE ONE TABLET BY MOUTH EVERY DAY NEEDED TAKE ONE TABLET FOR WEIGHT GAIN OF 3 POUNDS OVERNIGH T OR MORE THAN 5 POUNDS IN 1 WEEK OR LEG SWELLING TAKE ONE TABLET FOR WEIGHT GAIN OF 3 POUNDS OVERNIGH T OR MORE THAN 5 POUNDS IN 1 WEEK OR LEG SWELLING ORAL 10/26/2023 [id number] 4 JATINDER BENITEZ 2022 90 [place] [facility] HYDROCHLORO THIAZIDE 12.5MG/NANDO NOPRIL 10MG TAB TAKE ONE HALF TABLET BY MOUTH EVERY DAY FOR BLOOD PRESSURE ORAL DISCONT INUED BY PROVIDE R 05/08/2025 [id number] 4 JATINDER BENITEZ 2023 45 [place] [facility] HYDROCHLORO THIAZIDE 12.5MG/NANDO NOPRIL 10MG TAB TAKE ONE HALF TABLET BY MOUTH EVERY DAY FOR BLOOD PRESSURE ORAL DISCONT INUED 11/21/2024 [id number] 4 JATINDER BENITEZ 2023 45 [place] [facility] HYDROCHLORO THIAZIDE 12.5MG/NANDO NOPRIL 10MG TAB TAKE ONE HALF TABLET BY MOUTH EVERY DAY FOR BLOOD PRESSURE ORAL 10/26/2023 [id number] 3 JATINDER BENITEZ 2022 45 [place] [facility] IBUPROFEN 600MG TAB TAKE ONE TABLET BY MOUTH THREE TIMES A DAY NEEDED FOR PAIN ORAL DISCONT INUED BY PROVIDE R 07/25/2024 [id number] 4 KATELYNN PERSON 2023 21 [place] [facility] ISOSORBIDE MONONITRATE 30MG TAB,SA TAKE ONE TABLET BY MOUTH EVERY DAY FOR CHEST PAIN ORAL ACTIVE 12/19/2024 [id number] 4 JATINDER BENITEZ 2023 90 [place] [facility] ISOSORBIDE MONONITRATE 30MG TAB,SA TAKE ONE TABLET BY MOUTH EVERY DAY FOR CHEST PAIN ORAL 10/26/2023 [id number] 4 JATINDER BENITEZ 2022 90 [place] [facility] LISINOPRIL 10MG TAB TAKE ONE TABLET BY MOUTH EVERY MORNING FOR BLOOD PRESSURE ORAL ACTIVE 10/08/2024 [id number] 4 KIN POLANCO 2023 90 [place] [facility] METRONIDAZO LE 500MG TAB TAKE ONE TABLET BY MOUTH THREE TIMES A DAY - TAKE AT 1PM, 2PM, AND 11PM THE DAY BEFORE PROCEDUR E ALONG WITH NEOMYCIN ORAL DISCONT INUED 06/27/2024 [id number] 4 MARYBETH POWELL 2023 3 [place] [facility] NALOXONE HCL 4MG/SPRAY SOLN,SPRAY, NASAL SPRAY 1 DOSE IN ONE NOSTRIL DIRECTED FOR UNRESPON SIVENESS , THEN CALL 911. IF NO CHANGE IN 2-3 MINUTES, GIVE SECOND DOSE IN OPPOSITE NOSTRIL NASAL ACTIVE 07/11/2025 [id number] 4 KAMILA RICHARDSON 2023 2 [place] [facility] NEOMYCIN SO4 500MG TAB TAKE TWO TABLETS BY MOUTH THREE TIMES A DAY PREOP AT 1PM, 2PM AND 11PM ON THE DAY BEFORE COLORECT AL SURGERY (TAKE ALONG WITH METRONID AZOLE) ORAL DISCONT INUED BY PROVIDE R 06/27/2024 [id number] 4 MARYBETH POWELL 2023 6 [place] [facility] NITROFURANT OIN MONOHYDRATE /MACROCRYST ALLINE 100MG CAP,SA TAKE ONE CAPSULE BY MOUTH TWICE A DAY FOR UTI ORAL DISCONT INUED BY PROVIDE R 07/12/2024 [id number] 4 MARYBETH POWELL 2023 14 [place] [facility] NITROGLYCER IN 0.4MG TAB,SUBLING UAL DISSOLVE ONE TABLET UNDER THE TONGUE THREE TIMES A DAY NEEDED FOR CHEST PAIN * MAY REPEAT EVERY 5 MINUTES- -NO MORE THAN 3 TOTAL SUBLIN GUAL ACTIVE 07/11/2025 [id number] 4 KIN POLANCO L 2023 100 [place] [facility] NITROGLYCER IN 0.4MG TAB,SUBLING UAL DISSOLVE ONE TABLET UNDER THE TONGUE THREE TIMES A DAY NEEDED CHEST PAIN FOR CHEST PAIN * MAY REPEAT EVERY 5 MINUTES- -NO MORE THAN 3 TOTAL SUBLIN GUAL DISCONT INUED 11/21/2024 [id number] 4 JATINDER BENITEZ 2023 100 [place] [facility] NITROGLYCER IN 0.4MG TAB,SUBLING UAL DISSOLVE ONE TABLET UNDER THE TONGUE THREE TIMES A DAY NEEDED FOR CHEST PAIN * MAY REPEAT EVERY 5 MINUTES- -NO MORE THAN 3 TOTAL SUBLIN GUAL DISCONT INUED 05/13/2024 [id number] 3 JATINDER BENITEZ 2022 100 [place] [facility] ONDANSETRON HCL 8MG TAB TAKE ONE TABLET BY MOUTH EVERY 8 HOURS NEEDED FOR NAUSEA ORAL ACTIVE 08/09/2024 [id number] 4 DEBRAKAMILA CHÁVEZICA N 2023 90 [place] [facility] OXYCODONE HCL 5MG TAB TAKE ONE TABLET BY MOUTH EVERY 4 HOURS NEEDED FOR PAIN ORAL ACTIVE 08/09/2024 [id number] 4 DEBRAKAMILA BOB N 2023 12 [place] [facility] PEG-3350/EL ECTROLYTES PWDR TAKE 1 CONTAINE R (4 LITERS) BY MOUTH ONCE PRE-OP FOR COLO-REC [place] SURGERY - INSTRUCT ION SHEET MAILED FROM CLINIC ORAL DISCONT INUED BY PROVIDE R 06/27/2024 [id number] 4 MARYBETH POWELL 2023 1 [place] [facility] PEG-3350/EL ECTROLYTES PWDR TAKE ONE CONTAINE R BY MOUTH DIRECTED FOR COLON PREP ORAL 09/14/2023 [id number] 3 PRAFUL RODRIGUEZ 2022 1 [facility] PHENAZOPYRI DINE HCL 100MG TAB TAKE TWO TABLETS BY MOUTH THREE TIMES A DAY NEEDED FOR BLADDER PAIN ORAL 05/26/2024 [id number] 4 JOSE RANDOLPH 2023 90 [facility] PSYLLIUM PWDR,ORAL TAKE 2 TEASPOON SFUL BY MOUTH EVERY DAY FOR CONSTIPA TION ORAL ACTIVE 01/30/2025 [id number] 4 JATINDER BENITEZ L 2023 1170 [facility] PS[facility]LL[facility] PWDR,ORAL TAKE 2 TEASPOON SFUL BY MOUTH EVERY DAY FOR CONSTIPA TION ORAL DISCONT INUED (EDIT) 10/05/2024 [id number] 4 JACOB FAUSTIN JHAR 2023 390 [facility] SODIUM CHLORIDE 0.9% (PF) INJ,SYRINGE ,10ML INJECT 10 ML TOPICALL Y DIRECTED FOR IRRIGATI ON FOR WOUND CLEANSIN G TOPICA L 06/11/2024 [id number] 4 MARYBETH POWELL 2023 60 [facility] SPIRONOLACT ONE 25MG TAB TAKE ONE-HALF TABLET BY MOUTH EVERY DAY FOR BLOOD PRESSURE ORAL ACTIVE 01/30/2025 [id number] 4 JATINDER BENITEZ 2023 45 [facility] SPIRONOLACT ONE 25MG TAB TAKE ONE-HALF TABLET BY MOUTH EVERY DAY ORAL DISCONT INUED (EDIT) 01/13/2025 [id number] 4 MONDRAGONKAYCE ICA C 2023 15 [facility] SPIRONOLACT ONE 25MG TAB TAKE ONE-HALF TABLET BY MOUTH EVERY DAY ORAL DISCONT INUED 08/18/2024 [id number] 4 MONDRAGON,ER ICA C 2022 15 [facility] SPIRONOLACT ONE 25MG TAB TAKE ONE-HALF TABLET BY MOUTH EVERY DAY ORAL DISCONT INUED 05/06/2024 [id number] 3 JATINDER BENITEZ 2022 15 [facility] Allergies, Adverse Reactions, Alerts Combined list of allergies from Department of Defense and Veterans Affairs facilities. It does not include entries that were removed or entered in error. Substance Category Reaction Severity Reaction type Status Date Reported Comments Source TERAZOSIN Propensity to adverse reactions to drug (finding) Nausea active 5 [facility] Immunizations Combined list of available immunizations from the Department of Defense and Veterans Affairs facilities. Immunization Series Date Given Administered By Site Reaction Lot Number CVX Code Drug Experimental Mechanic Electrical Status Comments Source INFLUENZA, HIGH-DOSE, TRIVALENT, PF 2023 RUKHSANA BOUCHER A LEFT DELTO ID [id number] A 135 complet ed [facility] COVID-19 (PFIZER), MRNA, LNP-S, PF, CORINA-SUCROSE, 30 MCG/0.3 ML (AGES 12+ YEARS) 2023 GONZÁLEZ BERGERON LEFT DELTO ID [id number] 309 complet ed [facility] COVID-19 (PFIZER), MRNA, LNP-S, BIVALENT BOOSTER, PF, 30 MCG/0.3 ML DOSE 1 2022 LISA WILSON L LEFT DELTO ID [id number] 300 complet ed [facility] INFLUENZA VACCINE, QUADRIVALENT, ADJUVANTED 2021 205 complet ed [facility] INFLUENZA, UNSPECIFIED FORMULATION 2021 88 complet ed [facility] COVID-19 ([facility]), MRNA, LNP-S, PF, 30 MCG/0.3 ML DOSE, CORINA-SUCROSE (AGES 12+ YEARS) 4 2021 217 complet ed PFR; [id number]; 2 [facility] ZOSTER RECOMBINANT 2 2021 187 complet ed [facility] COVID-19 (PFIZER), MRNA, LNP-S, PF, 30 MCG/0.3 ML DOSE 2021 208 complet ed [facility] ZOSTER, UNSPECIFIED FORMULATION 2021 188 complet ed [facility] TDAP 2021 115 complet ed [facility] ZOSTER RECOMBINANT 1 2021 187 complet ed [facility] ZOSTER, UNSPECIFIED FORMULATION 2021 188 complet ed [facility] COVID-19 (PFIZER), MRNA, LNP-S, PF, 30 MCG/0.3 ML DOSE 3 2020 208 complet ed PRF; [id number]; 2 [facility] INFLUENZA, INJECTABLE, QUADRIVALENT, PRESERVATIVE FREE 2020 150 complet ed [facility] COVID-19 (PFIZER), MRNA, LNP-S, PF, 30 MCG/0.3 ML DOSE 2 2020 208 complet ed PFR; [id number]; 1 [facility] COVID-19 (PFIZER), MRNA, LNP-S, PF, 30 MCG/0.3 ML DOSE 1 2020 208 complet ed PFR; [id number]; 1 [facility] INFLUENZA, INJECTABLE, QUADRIVALENT, PRESERVATIVE FREE 2019 150 complet ed [facility] INFLUENZA, SEASONAL, INJECTABLE, PRESERVATIVE FREE 2018 140 complet ed [facility] INFLUENZA, UNSPECIFIED FORMULATION 2018 88 complet ed [facility] PNEUMOCOCCAL POLYSACCHARID E [id number] 2018 33 complet ed [place] [employer] [place],[id number] 20 [facility] INFLUENZA, SEASONAL, INJECTABLE, PRESERVATIVE FREE 2017 140 complet ed [facility] INFLUENZA, HIGH DOSE SEASONAL 2016 135 complet ed [facility] PNEUMOCOCCAL CONJUGATE PCV 13 2016 133 complet ed [place] [id number] EXP: 12/2017 [facility] INFLUENZA, SEASONAL, INJECTABLE, PRESERVATIVE FREE 2014 140 complet ed [facility] PNEUMOCOCCAL POLYSACCHARID E PPV23 2013 33 complet ed 000 [facility] PNEUMOCOCCAL, UNSPECIFIED FORMULATION 2013 109 complet ed [facility] ZOSTER LIVE 2013 121 complet ed 0000 [facility] INFLUENZA, UNSPECIFIED FORMULATION 2010 88 complet ed [facility] TDAP 2010 115 complet ed aaaa [facility] Results Combined list of recent chemistry, hematology and other laboratory results from Department of Defense and Veterans Affairs, ranging from 15 months to all on record, depending upon the facility. Order Name Results Value Reference Range Date Interpretation Specimen Comments Source PHOSPHOR US PHOSPHATE [MASS/VOLU ME] IN SERUM OR PLASMA 3.0 mg/dL 2.3 - 4.3 07/10 Specimen Type: PLASMA No comment entered. Ordering Provider: Carol ECHOLS Report Released Date/Time: Jul 09, 2024 12:23 PM Reporting Lab: [facility] [id number] Performing Lab: [facility] [id number] [facility] BASIC METABOLI C PANEL+MG CREATININE [MASS/VOLU ME] IN SERUM OR PLASMA 0.7 mg/dL 0.7 - 1.2 07/10 Specimen Type: PLASMA No comment entered. Ordering Provider: Carol ECHOLS Report Released Date/Time: Jul 09, 2024 12:23 PM Reporting Lab: [facility] [id number] Performing Lab: [facility] [phone] [place] [facility] BASIC METABOLI C PANEL+MG UREA NITROGEN [MASS/VOLU ME] IN SERUM OR PLASMA 27 mg/dL 8 - 26 07/10 H Specimen Type: PLASMA No comment entered. Ordering Provider: Carol ECHOLS Report Released Date/Time: Jul 09, 2024 12:23 PM Reporting Lab: [facility] [id number] Performing Lab: [facility] [phone] [place] [facility] BASIC METABOLI C PANEL+MG GLUCOSE [MASS/VOLU ME] IN SERUM OR PLASMA 104 mg/dL 70 - 100 07/10 H Specimen Type: PLASMA No comment entered. Ordering Provider: Carol ECHOLS Report Released Date/Time: Jul 09, 2024 12:23 PM Reporting Lab: [facility] [id number] Performing Lab: [facility] [address] [place] [facility] BASIC METABOLI C PANEL+MG SODIUM [MOLES/VOL UME] IN SERUM OR PLASMA 133 mmol/L 136 - 145 07/10 L Specimen Type: PLASMA No comment entered. Ordering Provider: Carol ECHOLS Report Released Date/Time: Jul 09, 2024 12:23 PM Reporting Lab: [facility] [phone] Performing Lab: [facility] [phone] [place] [facility] BASIC METABOLI C PANEL+MG POTASSIUM [MOLES/VOL UME] IN SERUM OR PLASMA 4.3 mmol/L 3.5 - 5.1 07/10 Specimen Type: PLASMA No comment entered. Ordering Provider: Carol ECHOLS Report Released Date/Time: Jul 09, 2024 12:23 PM Reporting Lab: [facility] [address] Performing Lab: [facility] [phone] [place] [facility] BASIC METABOLI C PANEL+MG CHLORIDE [MOLES/VOL UME] IN SERUM OR PLASMA 102 mmol/L 98 - 107 07/10 Specimen Type: PLASMA No comment entered. Ordering Provider: Carol ECHOLS Report Released Date/Time: Jul 09, 2024 12:23 PM Reporting Lab: [facility] [phone] Performing Lab: [facility] [phone] [place] [facility] BASIC METABOLI C PANEL+MG CARBON DIOXIDE, TOTAL [MOLES/VOL UME] IN SERUM OR PLASMA 19 mmol/L 22 - 29 07/10 L Specimen Type: PLASMA No comment entered. Ordering Provider: Carol ECHOLS Report Released Date/Time: Jul 09, 2024 12:23 PM Reporting Lab: [facility] [address] Performing Lab: [facility] [phone] [place] [facility] BASIC METABOLI C PANEL+MG CALCIUM [MASS/VOLU ME] IN SERUM OR PLASMA 10.1 mg/dL 8.4 - 10.2 07/10 Specimen Type: PLASMA No comment entered. Ordering Provider: Carol ECHOLS Report Released Date/Time: Jul 09, 2024 12:23 PM Reporting Lab: [facility] [id number] Performing Lab: [facility] [id number] [place] [facility] BASIC METABOLI C PANEL+MG MAGNESIUM [MASS/VOLU ME] IN SERUM OR PLASMA 1.9 mg/dL 1.6 - 2.6 07/10 Specimen Type: PLASMA No comment entered. Ordering Provider: Carol ECHOLS Report Released Date/Time: Jul 09, 2024 12:23 PM Reporting Lab: [facility] [id number] Performing Lab: [facility] [phone] [place] [facility] BASIC METABOLI C PANEL+MG ANION GAP IN SERUM OR PLASMA 12 mmol/L 5 - 15 07/10 Specimen Type: PLASMA No comment entered. Ordering Provider: Carol ECHOLS Report Released Date/Time: Jul 09, 2024 12:23 PM Reporting Lab: [facility] [address] Performing Lab: [facility] [address] [place] [facility] BASIC METABOLI C PANEL+MG GLOMERULAR FILTRATION RATE/1.73 SQ M.PREDICTE D [VOLUME RATE/AREA] IN SERUM, PLASMA OR BLOOD BY CREATININE -BASED FORMULA (CKD-EPI 2020) >90 60 07/10 Specimen Type: PLASMA No comment entered. Ordering Provider: Carol ECHOLS Report Released Date/Time: Jul 09, 2024 12:23 PM Reporting Lab: [facility] [address] Performing Lab: [facility] [address] [place] [facility] CBC LEUKOCYTES [#/VOLUME] IN BLOOD BY AUTOMATED COUNT 18.8 4.0 - 11.0 07/10 H Specimen Type: BLOOD No comment entered. Ordering Provider: Carlo ECHOLS Report Released Date/Time: Jul 09, 2024 12:23 PM Reporting Lab: [facility] [address] Performing Lab: [facility] [address] [facility] CBC ERYTHROCYT ES [#/VOLUME] IN BLOOD BY AUTOMATED COUNT 5.08 4.60 - 6.20 07/10 Specimen Type: BLOOD No comment entered. Ordering Provider: Carol ECHOLS Report Released Date/Time: Jul 09, 2024 12:23 PM Reporting Lab: [facility] [address] Performing Lab: [facility] [address] [facility] CBC HEMOGLOBIN [MASS/VOLU ME] IN BLOOD 15.9 g/dL 13.5 - 17.9 07/10 Specimen Type: BLOOD No comment entered. Ordering Provider: Carol ECHOLS Report Released Date/Time: Jul 09, 2024 12:23 PM Reporting Lab: [facility] [address] Performing Lab: [facility] [address] [place] [facility] CBC HEMATOCRIT [VOLUME FRACTION] OF BLOOD BY AUTOMATED COUNT 46.8 41.0 - 54.0 07/10 Specimen Type: BLOOD No comment entered. Ordering Provider: Carol ECHOLS Report Released Date/Time: Jul 09, 2024 12:23 PM Reporting Lab: [facility] [address] Performing Lab: [facility] [address] [place] [facility] CBC MCV [ENTITIC VOLUME] BY AUTOMATED COUNT 92.1 fL 80.0 - 100.0 07/10 Specimen Type: BLOOD No comment entered. Ordering Provider: Carol ECHOLS Report Released Date/Time: Jul 09, 2024 12:23 PM Reporting Lab: [facility] [address] Performing Lab: [facility] [address] [place] [facility] CBC MCH [ENTITIC MASS] BY AUTOMATED COUNT 31.3 pg 27.0 - 33.0 07/10 Specimen Type: BLOOD No comment entered. Ordering Provider: Carol ECHOLS Report Released Date/Time: Jul 09, 2024 12:23 PM Reporting Lab: [facility] [address] Performing Lab: [facility] [address] [place] [facility] CBC MCHC [MASS/VOLU ME] BY AUTOMATED COUNT 34.0 g/dL 32.0 - 37.5 07/10 Specimen Type: BLOOD No comment entered. Ordering Provider: Carol ECHOLS Report Released Date/Time: Jul 09, 2024 12:23 PM Reporting Lab: [facility] [address] Performing Lab: [facility] [address] [place] [facility] CBC PLATELETS [#/VOLUME] IN BLOOD BY AUTOMATED COUNT 479 150 - 400 07/10 H Specimen Type: BLOOD No comment entered. Ordering Provider: Carol ECHOLS Report Released Date/Time: Jul 09, 2024 12:23 PM Reporting Lab: [facility] [address] Performing Lab: [facility] [address] [place] [facility] CBC PLATELET MEAN VOLUME [ENTITIC VOLUME] IN BLOOD BY AUTOMATED COUNT 10.2 fL 9.1 - 13.0 07/10 Specimen Type: BLOOD No comment entered. Ordering Provider: Carol ECHOLS Report Released Date/Time: Jul 09, 2024 12:23 PM Reporting Lab: [facility] [address] Performing Lab: [facility] [address] [place] [facility] CBC ERYTHROCYT E DISTRIBUTI ON WIDTH [RATIO] BY AUTOMATED COUNT 13.7 11.5 - 14.5 07/10 Specimen Type: BLOOD No comment entered. Ordering Provider: Carol ECHOLS Report Released Date/Time: Jul 09, 2024 12:23 PM Reporting Lab: [facility] [address] Performing Lab: [facility] [address] [place] [facility] CBC LEUKOCYTES [#/VOLUME] IN BLOOD BY AUTOMATED COUNT 15.3 4.0 - 11.0 07/09 H Specimen Type: BLOOD No comment entered. Ordering Provider: MARSHALL WEISS Report Released Date/Time: Jul 08, 2024 06:18 PM Reporting Lab: [facility] [address] Performing Lab: [facility] [address] [place] [facility] CBC ERYTHROCYT ES [#/VOLUME] IN BLOOD BY AUTOMATED COUNT 4.91 4.60 - 6.20 07/09 Specimen Type: BLOOD No comment entered. Ordering Provider: MARSHALL WEISS Report Released Date/Time: Jul 08, 2024 06:18 PM Reporting Lab: [facility] [address] Performing Lab: [facility] [address] [place] [facility] CBC HEMOGLOBIN [MASS/VOLU ME] IN BLOOD 15.1 g/dL 13.5 - 17.9 07/09 Specimen Type: BLOOD No comment entered. Ordering Provider: MARSHALL WEISS Report Released Date/Time: Jul 08, 2024 06:18 PM Reporting Lab: [facility] [address] Performing Lab: [facility] [address] [place] [facility] CBC HEMATOCRIT [VOLUME FRACTION] OF BLOOD BY AUTOMATED COUNT 45.7 41.0 - 54.0 07/09 Specimen Type: BLOOD No comment entered. Ordering Provider: MARSHALL WEISS Report Released Date/Time: Jul 08, 2024 06:18 PM Reporting Lab: [facility] [address] Performing Lab: [facility] [address] [place] [facility] CBC MCV [ENTITIC VOLUME] BY AUTOMATED COUNT 93.1 fL 80.0 - 100.0 07/09 Specimen Type: BLOOD No comment entered. Ordering Provider: MARSHALL WEISS Report Released Date/Time: Jul 08, 2024 06:18 PM Reporting Lab: [facility] [address] Performing Lab: [facility] [address] [place] [facility] CBC MCH [ENTITIC MASS] BY AUTOMATED COUNT 30.8 pg 27.0 - 33.0 07/09 Specimen Type: BLOOD No comment entered. Ordering Provider: MARSHALL WEISS Report Released Date/Time: Jul 08, 2024 06:18 PM Reporting Lab: [facility] [address] Performing Lab: [facility] [address] [place] [facility] CBC MCHC [MASS/VOLU ME] BY AUTOMATED COUNT 33.0 g/dL 32.0 - 37.5 07/09 Specimen Type: BLOOD No comment entered. Ordering Provider: MARSHALL WEISS Report Released Date/Time: Jul 08, 2024 06:18 PM Reporting Lab: [facility] [address] Performing Lab: [facility] [address] [place] [facility] CBC PLATELETS [#/VOLUME] IN BLOOD BY AUTOMATED COUNT 443 150 - 400 07/09 H Specimen Type: BLOOD No comment entered. Ordering Provider: MARSHALL WEISS Report Released Date/Time: Jul 08, 2024 06:18 PM Reporting Lab: [facility] [address] Performing Lab: [facility] [address] [place] [facility] CBC PLATELET MEAN VOLUME [ENTITIC VOLUME] IN BLOOD BY AUTOMATED COUNT 10.0 fL 9.1 - 13.0 07/09 Specimen Type: BLOOD No comment entered. Ordering Provider: MARSHALL WEISS Report Released Date/Time: Jul 08, 2024 06:18 PM Reporting Lab: [facility] [address] Performing Lab: [facility] [address] [place] [facility] CBC ERYTHROCYT E DISTRIBUTI ON WIDTH [RATIO] BY AUTOMATED COUNT 13.5 11.5 - 14.5 07/09 Specimen Type: BLOOD No comment entered. Ordering Provider: MARSHALL WEISS Report Released Date/Time: Jul 08, 2024 06:18 PM Reporting Lab: [facility] [address] Performing Lab: [facility] [address] [facility] URINALYS IS COLOR OF URINE YELLOW 07/08 Specimen Type: URINE No comment entered. Ordering Provider: VIKTORIA PERSON SE Report Released Date/Time: Jul 08, 2024 08:41 AM Reporting Lab: [facility] [address] Performing Lab: [facility] [address] [facility] URINALYS IS SPECIFIC GRAVITY OF URINE >1.050 1.003 - 1.035 07/08 H Specimen Type: URINE No comment entered. Ordering Provider: VIKTORIA PERSON SE Report Released Date/Time: Jul 08, 2024 08:41 AM Reporting Lab: [facility] [address] Performing Lab: [facility] [address] [facility] URINALYS IS BILIRUBIN. TOTAL [PRESENCE] IN URINE BY TEST STRIP NEGATIVE 07/08 Specimen Type: URINE No comment entered. Ordering Provider: VIKTORIA PERSON SE Report Released Date/Time: Jul 08, 2024 08:41 AM Reporting Lab: [facility] [address] Performing Lab: [facility] [address] [facility] URINALYS IS KETONES [MASS/VOLU ME] IN URINE BY TEST STRIP NEGATIVE 07/08 Specimen Type: URINE No comment entered. Ordering Provider: VIKTORIA PERSON SE Report Released Date/Time: Jul 08, 2024 08:41 AM Reporting Lab: [facility] [address] Performing Lab: [facility] [address] [place] [facility] URINALYS IS GLUCOSE [MASS/VOLU ME] IN URINE BY TEST STRIP 500 mg/dL <30 - 30 07/08 Specimen Type: URINE No comment entered. Ordering Provider: VIKTORIA PERSON SE Report Released Date/Time: Jul 08, 2024 08:41 AM Reporting Lab: [facility] [address] Performing Lab: [facility] [address] [place] [facility] URINALYS IS PROTEIN [MASS/VOLU ME] IN URINE BY TEST STRIP 20 mg/dL <20 - 20 07/08 Specimen Type: URINE No comment entered. Ordering Provider: VIKTORIA PERSON SE Report Released Date/Time: Jul 08, 2024 08:41 AM Reporting Lab: [facility] [address] Performing Lab: [facility] [address] [facility] URINALYS IS PH OF URINE BY TEST STRIP 6.0 5.0 - 8.0 07/08 Specimen Type: URINE No comment entered. Ordering Provider: VIKTORIA PERSON SE Report Released Date/Time: Jul 08, 2024 08:41 AM Reporting Lab: [facility] [address] Performing Lab: [facility] [address] [facility] IS LEUKOCYTES [#/AREA] IN URINE SEDIMENT BY MICROSCOPY HIGH POWER FIELD 1 /[HPF] 0 - 7 07/08 Specimen Type: URINE No comment entered. Ordering Provider: VIKTORIA PERSON SE Report Released Date/Time: Jul 08, 2024 08:41 AM Reporting Lab: [facility] [address] Performing Lab: [facility] [address] [place] [facility] URINALYS IS BACTERIA [PRESENCE] IN URINE SEDIMENT BY LIGHT MICROSCOPY NONE SEEN 07/08 Specimen Type: URINE No comment entered. Ordering Provider: VIKTORIA PERSON SE Report Released Date/Time: Jul 08, 2024 08:41 AM Reporting Lab: [facility] [address] Performing Lab: [facility] [address] [place] [facility] URINALYS IS ERYTHROCYT ES [#/AREA] IN URINE SEDIMENT BY MICROSCOPY HIGH POWER FIELD NONE SEEN/[HP F] 0 - 3 07/08 Specimen Type: URINE No comment entered. Ordering Provider: VIKTORIA PERSON SE Report Released Date/Time: Jul 08, 2024 08:41 AM Reporting Lab: [facility] [address] Performing Lab: [facility] [address] [place] [facility] URINALYS IS APPEARANCE OF URINE CLEAR 07/08 Specimen Type: URINE No comment entered. Ordering Provider: VIKTORIA PERSON SE Report Released Date/Time: Jul 08, 2024 08:41 AM Reporting Lab: [facility] [address] Performing Lab: [facility] [address] [facility] URINALYS IS EPITHELIAL CELLS.SQUA MOUS [#/AREA] IN URINE SEDIMENT BY MICROSCOPY HIGH POWER FIELD <1/[HPF] 07/08 Specimen Type: URINE No comment entered. Ordering Provider: VIKTORIA PERSON SE Report Released Date/Time: Jul 08, 2024 08:41 AM Reporting Lab: [facility] [address] Performing Lab: [facility] [address] [facility] URINALYS IS HEMOGLOBIN [PRESENCE] IN URINE BY TEST STRIP NEGATIVE 07/08 Specimen Type: URINE No comment entered. Ordering Provider: VIKTORIA PERSON SE A Report Released Date/Time: Jul 08, 2024 08:41 AM Reporting Lab: [facility] [address] Performing Lab: [facility] [address] [place] [facility] URINALYS IS NITRITE [PRESENCE] IN URINE BY TEST STRIP NEGATIVE 07/08 Specimen Type: URINE No comment entered. Ordering Provider: VIKTORIA PERSON SE A Report Released Date/Time: Jul 08, 2024 08:41 AM Reporting Lab: [facility] [address] Performing Lab: [facility] [address] [facility] URINALYS IS LEUKOCYTE ESTERASE [PRESENCE] IN URINE BY TEST STRIP NEGATIVE 07/08 Specimen Type: URINE No comment entered. Ordering Provider: VIKTORIA PERSON SE Report Released Date/Time: Jul 08, 2024 08:41 AM Reporting Lab: [facility] [address] Performing Lab: [place] [address] [facility] CBC LEUKOCYTES [#/VOLUME] IN BLOOD BY AUTOMATED COUNT 17.5 4.0 - 11.0 07/08 H Specimen Type: BLOOD Comment: Specimen received in Lab at: [id number] Ordering Provider: Carol ECHOLS Report Released Date/Time: Jul 07, 2024 04:49 PM Reporting Lab: [facility] [address] Performing Lab: [place] [address] [facility] CBC ERYTHROCYT ES [#/VOLUME] IN BLOOD BY AUTOMATED COUNT 4.88 4.60 - 6.20 07/08 Specimen Type: BLOOD Comment: Specimen received in Lab at: 0952 Ordering Provider: Carol ECHOLS Report Released Date/Time: Jul 07, 2024 04:49 PM Reporting Lab: [facility] [address] Performing Lab: [facility] [address] [facility] CBC HEMOGLOBIN [MASS/VOLU ME] IN BLOOD 14.9 g/dL 13.5 - 17.9 07/08 Specimen Type: BLOOD Comment: Specimen received in Lab at: 0952 Ordering Provider: Carol ECHOLS Report Released Date/Time: Jul 07, 2024 04:49 PM Reporting Lab: [facility] [address] Performing Lab: [facility] [address] [facility] IS [facility] CBC HEMATOCRIT [VOLUME FRACTION] OF BLOOD BY AUTOMATED COUNT 45.7 41.0 - 54.0 07/08 Specimen Type: BLOOD Comment: Specimen received in Lab at: 0952 Ordering Provider: Carol ECHOLS Report Released Date/Time: Jul 07, 2024 04:49 PM Reporting Lab: [facility] [address] Performing Lab: [facility] [address] [place] [facility] CBC MCV [ENTITIC VOLUME] BY AUTOMATED COUNT 93.6 fL 80.0 - 100.0 07/08 Specimen Type: BLOOD Comment: Specimen received in Lab at: 0952 Ordering Provider: Carol ECHOLS Report Released Date/Time: Jul 07, 2024 04:49 PM Reporting Lab: [facility] [address] Performing Lab: [facility] [address] [place] [facility] CBC MCH [ENTITIC MASS] BY AUTOMATED COUNT 30.5 pg 27.0 - 33.0 07/08 Specimen Type: BLOOD Comment: Specimen received in Lab at: 0952 Ordering Provider: Carol ECHOLS Report Released Date/Time: Jul 07, 2024 04:49 PM Reporting Lab: [facility] [address] Performing Lab: [facility] [address] [place] [facility] CBC MCHC [MASS/VOLU ME] BY AUTOMATED COUNT 32.6 g/dL 32.0 - 37.5 07/08 Specimen Type: BLOOD Comment: Specimen received in Lab at: 0952 Ordering Provider: Carol ECHOLS Report Released Date/Time: Jul 07, 2024 04:49 PM Reporting Lab: [facility] [address] Performing Lab: [facility] [address] [place] [facility] CBC PLATELETS [#/VOLUME] IN BLOOD BY AUTOMATED COUNT 472 150 - 400 07/08 H Specimen Type: BLOOD Comment: Specimen received in Lab at: 0952 Ordering Provider: Carol ECHOLS Report Released Date/Time: Jul 07, 2024 04:49 PM Reporting Lab: [facility] [address] Performing Lab: [facility] [address] [place] [facility] CBC PLATELET MEAN VOLUME [ENTITIC VOLUME] IN BLOOD BY AUTOMATED COUNT 10.2 fL 9.1 - 13.0 07/08 Specimen Type: BLOOD Comment: Specimen received in Lab at: 0952 Ordering Provider: Carol ECHOLS Report Released Date/Time: Jul 07, 2024 04:49 PM Reporting Lab: [facility] [address] Performing Lab: [facility] [address] [place] [facility] CBC ERYTHROCYT E DISTRIBUTI ON WIDTH [RATIO] BY AUTOMATED COUNT 13.7 11.5 - 14.5 07/08 Specimen Type: BLOOD Comment: Specimen received in Lab at: 0952 Ordering Provider: Carol ECHOLS Report Released Date/Time: Jul 07, 2024 04:49 PM Reporting Lab: [facility] [address] Performing Lab: [facility] [address] [place] [facility] BASIC METABOLI C PANEL+MG CREATININE [MASS/VOLU ME] IN SERUM OR PLASMA 0.9 mg/dL 0.7 - 1.2 07/08 Specimen Type: PLASMA Comment: Specimen received in Lab at: 0952 Ordering Provider: Carol ECHOLS Report Released Date/Time: Jul 07, 2024 04:49 PM Reporting Lab: [facility] [address] Performing Lab: [facility] [address] [place] [facility] BASIC METABOLI C PANEL+MG UREA NITROGEN [MASS/VOLU ME] IN SERUM OR PLASMA 26 mg/dL 8 - 26 07/08 Specimen Type: PLASMA Comment: Specimen received in Lab at: 0952 Ordering Provider: Carol ECHOLS Report Released Date/Time: Jul 07, 2024 04:49 PM Reporting Lab: [facility] [address] Performing Lab: [facility] [address] [place] [facility] BASIC METABOLI C PANEL+MG GLUCOSE [MASS/VOLU ME] IN SERUM OR PLASMA 128 mg/dL 70 - 100 07/08 H Specimen Type: PLASMA Comment: Specimen received in Lab at: 0952 Ordering Provider: Carol ECHOLS Report Released Date/Time: Jul 07, 2024 04:49 PM Reporting Lab: [facility] [address] Performing Lab: [facility] [address] [place] [facility] BASIC METABOLI C PANEL+MG SODIUM [MOLES/VOL UME] IN SERUM OR PLASMA 134 mmol/L 136 - 145 07/08 L Specimen Type: PLASMA Comment: Specimen received in Lab at: 0952 Ordering Provider: Carol ECHOLS Report Released Date/Time: Jul 07, 2024 04:49 PM Reporting Lab: [facility] [address] Performing Lab: [facility] [address] [place] [facility] BASIC METABOLI C PANEL+MG POTASSIUM [MOLES/VOL UME] IN SERUM OR PLASMA 3.4 mmol/L 3.5 - 5.1 07/08 L Specimen Type: PLASMA Comment: Specimen received in Lab at: 0952 Ordering Provider: Carol ECHOLS Report Released Date/Time: Jul 07, 2024 04:49 PM Reporting Lab: [facility] [address] Performing Lab: [facility] [address] [place] [facility] BASIC METABOLI C PANEL+MG CHLORIDE [MOLES/VOL UME] IN SERUM OR PLASMA 100 mmol/L 98 - 107 07/08 Specimen Type: PLASMA Comment: Specimen received in Lab at: 0952 Ordering Provider: Carol ECHOLS Report Released Date/Time: Jul 07, 2024 04:49 PM Reporting Lab: [facility] [address] Performing Lab: [facility] [address] [place] [facility] BASIC METABOLI C PANEL+MG CARBON DIOXIDE, TOTAL [MOLES/VOL UME] IN SERUM OR PLASMA 24 mmol/L 22 - 29 07/08 Specimen Type: PLASMA Comment: Specimen received in Lab at: 0952 Ordering Provider: Carol ECHOLS Report Released Date/Time: Jul 07, 2024 04:49 PM Reporting Lab: [facility] [address] Performing Lab: [facility] [address] [place] [facility] BASIC METABOLI C PANEL+MG CALCIUM [MASS/VOLU ME] IN SERUM OR PLASMA 9.8 mg/dL 8.4 - 10.2 07/08 Specimen Type: PLASMA Comment: Specimen received in Lab at: 0952 Ordering Provider: Carol ECHOLS Report Released Date/Time: Jul 07, 2024 04:49 PM Reporting Lab: [facility] [address] Performing Lab: [facility] [address] [place] [facility] BASIC METABOLI C PANEL+MG MAGNESIUM [MASS/VOLU ME] IN SERUM OR PLASMA 1.8 mg/dL 1.6 - 2.6 07/08 Specimen Type: PLASMA Comment: Specimen received in Lab at: 0952 Ordering Provider: Carol ECHOLS Report Released Date/Time: Jul 07, 2024 04:49 PM Reporting Lab: [facility] [address] Performing Lab: [facility] [address] [place] [facility] BASIC METABOLI C PANEL+MG ANION GAP IN SERUM OR PLASMA 10 mmol/L 5 - 15 07/08 Specimen Type: PLASMA Comment: Specimen received in Lab at: 0952 Ordering Provider: Carol ECHOLS Report Released Date/Time: Jul 07, 2024 04:49 PM Reporting Lab: [facility] [address] Performing Lab: [facility] [address] [place] [facility] BASIC METABOLI C PANEL+MG GLOMERULAR FILTRATION RATE/1.73 SQ M.PREDICTE D [VOLUME RATE/AREA] IN SERUM, PLASMA OR BLOOD BY CREATININE -BASED FORMULA (CKD-EPI 2020) >90 60 07/08 Specimen Type: PLASMA Comment: Specimen received in Lab at: 0952 Ordering Provider: Carol ECHOLS Report Released Date/Time: Jul 07, 2024 04:49 PM Reporting Lab: [facility] [address] Performing Lab: [facility] [address] [place] [facility] PHOSPHOR US PHOSPHATE [MASS/VOLU ME] IN SERUM OR PLASMA 2.6 mg/dL 2.3 - 4.3 07/08 Specimen Type: PLASMA Comment: Specimen received in Lab at: 0952 Ordering Provider: Carol ECHOLS Report Released Date/Time: Jul 07, 2024 04:49 PM Reporting Lab: [facility] [address] Performing Lab: [facility] [address] [facility] C DIFF PANEL CLOSTRIDIO IDES DIFFICILE TOXIN B TCDB GENE [PRESENCE] IN STOOL BY JENARO WITH PROBE DETECTION NEGATIVE 07/07 Specimen Type: FECES No comment entered. Ordering Provider: JEVON ZAZUETA Report Released Date/Time: Jul 07, 2024 12:26 PM Reporting Lab: [facility] [address] Performing Lab: [facility] [address] [facility] PHOSPHOR US PHOSPHATE [MASS/VOLU ME] IN SERUM OR PLASMA 3.1 mg/dL 2.3 - 4.3 07/07 Specimen Type: PLASMA No comment entered. Ordering Provider: JEVON ZAZUETA Report Released Date/Time: Jul 06, 2024 03:44 PM Reporting Lab: [facility] [address] Performing Lab: [facility] [address] [facility] Vital Signs Combined list of inpatient and outpatient Vital Signs from Department of Defense and Veterans Affairs, ranging from 12 months to all on record, depending upon the facility. Vital Sign Value Date Comments Source SYSTOLIC BLOOD PRESSURE 165 07/09/2024 00:12:28 [facility] DIASTOLIC BLOOD PRESSURE 80 07/09/2024 00:12:28 [facility] PULSE OXIMETRY 96 07/09/2024 00:12:28 [place] [facility] PAIN 0 07/09/2024 00:12:28 [facility] TEMPERATURE 97.4 07/09/2024 00:12:28 [facility] PULSE 59 07/09/2024 00:12:28 [facility] 16 07/09/2024 00:12:28 [facility] SYSTOLIC BLOOD PRESSURE 127 07/08/2024 09:25:31 [facility] DIASTOLIC BLOOD PRESSURE 56 07/08/2024 09:25:31 [facility] PULSE OXIMETRY 98 07/08/2024 09:25:31 [facility] PAIN 0 07/08/2024 09:25:31 [facility] TEMPERATURE 97.6 07/08/2024 09:25:31 [facility] PULSE 70 07/08/2024 09:25:31 [facility] RESPIRATION 18 07/08/2024 09:25:31 [facility] SYSTOLIC BLOOD PRESSURE 133 07/07/2024 00:24:27 [facility] DIASTOLIC BLOOD PRESSURE 81 07/07/2024 00:24:27 [facility] PULSE OXIMETRY 97 07/07/2024 00:24:27 [facility] PAIN 6 07/07/2024 00:24:27 [facility] TEMPERATURE 97.4 07/07/2024 00:24:27 [facility] PULSE 101 07/07/2024 00:24:27 [facility] RESPIRATION 18 07/07/2024 00:24:27 [facility] PAIN 8 07/06/2024 02:46:06 [facility] SYSTOLIC BLOOD PRESSURE 153 07/05/2024 01:29:25 [facility] DIASTOLIC BLOOD PRESSURE 73 07/05/2024 01:29:25 [facility] PULSE OXIMETRY 98 07/05/2024 01:29:25 [facility] PAIN 3 07/05/2024 01:29:25 [facility] TEMPERATURE 97.6 07/05/2024 01:29:25 [facility] PULSE 48 07/05/2024 01:29:25 [facility] RESPIRATION 16 07/05/2024 01:29:25 [facility] Encounters Combined list of: 1) Encounters from Department of Veterans Affairs facilities going back up to thelast 18 months. 2) Encounters from the Department of Defense facilities going back up to 280 months. Location Location Details Encounter Type Encounter Number Reason For Visit Attending Provider ADM Date DC Date Status Disposition Source JUANIS MENESES [facility] Outpatient Encounter [id number] 01/24 [place] [facility] [place] [facility] Outpatient Encounter [id number] 01/26 [place] 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 [place] [facility] Outpatient Encounter [id number] 05/14 [place] [facility] [place] [facility] Outpatient [facility]counter [id number] 06/30 [place] [facility] [place] [facility] BREATHING CAPACITY TEST [id number] Diagnos is: ICD-10- CM Z72.0 Tobacco use<br/ > PRANEETH FIERRO 06/30 [place] [facility] [place] [facility] Outpatient Encounter [id number] 08/12 [place] [facility] [place] [facility] Outpatient Encounter [id number] 08/15 [place] [facility] [place] [facility] Outpatient Encounter [id number] 09/19 [place] [facility] [place] [facility] Outpatient Encounter [id number] 09/20 [place] [facility] [place] [facility] MOD SED SAME PHYS/QHP 5/>YRS [id number] [id number] Diagnos is: ICD-10- CM K63.89 Other specifi ed disease s of intesti ne
KASEY ZAIDI 09/21 [place] [facility] [place] [facility] Outpatient Encounter [id number] 09/21 [place] [facility] [place] [facility] Outpatient Encounter [id number] EMRE TAM 09/26 [facility] [place] [facility] OFFICE O/P NEW MOD 45 MIN [id number] [id number] Diagnos is: ICD-10- CM K59.00 Constip ation, unspeci fied
KEATON,TANK PARADAIFER W 10/05 [facility] T[place]MPANOMET RY [id number] [id number] Diagnos is: ICD-10- CM Z01.118 Encntr for exam of ears and hearing w oth abnorma l finding s
CAROLYN NIELSON 11/28 [facility] Outpatient Encounter [id number] JATINDER BENITEZ 12/14 [facility] CONFORMITY EVALUATION [id number] Diagnos is: ICD-10- CM H90.3 Sensori neural hearing loss, bilater al
CAROLYN NIELSON 12/28 [facility] [place] [facility] Outpatient Encounter [id number] 01/23 [facility] [place] [facility] Outpatient Encounter [id number] JATINDER BENITEZ 01/24 [facility] [place] [facility] Outpatient Encounter [id number] 01/29 [facility] [place] [facility] OFFICE O/P EST MOD 30 MIN [id number] [id number] Diagnos is: ICD-10- CM I25.10 Athscl heart disease of [place] coronar y artery w/o ang pctrs<b r/> JATINDER BENITEZ 01/29 [facility] [place] [facility] Outpatient Encounter [id number] [facility] EMERGENCY DEPT VISIT LOW MDM [id number] [id number] Diagnos is: ICD-10- CM N32.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
CAMMY WAGNER A 04/21 [facility] Outpatient Encounter [id number] DUDLEY WINKLER -ARK 04/23 [facility] Outpatient Encounter [id number] MARIS ARAMBULA RA 04/23 [facility] Outpatient Encounter [id number] EDILSON ZAZUETA 04/23 [facility] Outpatient Encounter [id number] 04/23 [facility] Drainage of Peritoneal Cavity with Drain Dev, Perc Approach [id number] Admit Reason: DIVERTI CULITIS ABSC W/FIST< br/> NURIA GO 04/23 [facility] Inpatient Encounter [id number] 04/23 [facility] Inpatient Encounter [id number] 04/23 [facility] Inpatient Encounter [id number] 04/23 [facility] IP/OBS CNSLTJ NEW/EST LOW 45 [id number] [id number] Diagnos is: ICD-10- CM K57.20 Dvtrcli of lg int w perfora tion and abscess w/o bleedin g
MARYBETH POWELL 04/23 [facility] Inpatient Encounter [id number] 04/23 [facility] IP/OBS CNSLTJ NEW/EST MOD 60 [id number] Diagnos is: ICD-10- CM I44.1 Atriove ntricul ar block, second degree< br/> LYNNEYULY DAVIES RMA B 04/23 [facility] [place] [facility] Inpatient Encounter [id number] SYSTEM,CIS -[place] 04/24 [facility] [place] [facility] Inpatient Encounter [id number] 04/24 [facility] [place] [facility] Inpatient Encounter [id number] CA BENAVIDES GISTU A 04/24 [facility] INJ PERFLUTREN LIP MICROS,ML 76232-2.61 [id number] Diagnos is: ICD-10- CM R94.31 Abnorma l electro cardiog brandi [ECG] [EKG]<b r/> LATIAJEREDCA GISTU A 04/24 [facility] [place] [facility] Inpatient [facility]counter [id number] 04/24 [facility] IP/OBS CONSLTJ NEW/EST SF 35 [id number] [id number] Diagnos is: ICD-10- CM K57.20 Dvtrcli of lg int w perfora tion and abscess w/o bleedin g
MARYBETH POWELL 04/24 [facility] [place] [facility] Inpatient Encounter [id number] 04[facility]24 [facility] [place] [facility] Inpatient Encounter [id number] [id number] 04/24 [facility] Inpatient Encounter [id number] 04/24 [place] [facility] [place] [facility] Inpatient Encounter [id number] SYSTEM,CIS -[place] 04/25 [place] [facility] [place] [facility] Inpatient Encounter [id number] 04/25 [place] [facility] [place] [facility] Inpatient Encounter [id number] [id number] MCKAY TOBIN 04/25 [facility] [place] [facility] SBSQ HOSP IP/OBS SF/LOW 25 [id number] [id number] Diagnos is: ICD-10- CM K57.20 Dvtrcli of lg int w perfora tion and abscess w/o bleedin g
MARYBETH POWELL 04/25 [facility] [place] [facility] Inpatient Encounter [id number] 04/25 [facility] [place] [facility] Inpatient Encounter [id number] 04/25 [facility] [place] [facility] Inpatient Encounter [id number] 04/25 [facility] [place] [facility] Inpatient Encounter [id number] SYSTEM,CIS -[place] 04/26 [place] [facility] [place] [facility] Inpatient Encounter [id number] 04/26 [place] [facility] [place] [facility] Inpatient Encounter [id number] [id number] 04/26 [facility] [place] [facility] Inpatient Encounter [id number] 04/26 [facility] [place] [facility] Outpatient Encounter [id number] 04/26 [facility] [place] [facility] Outpatient Encounter [id number] [id number] ALYKAYCEBRANDY Medina 04/29 [facility] [place] [facility] Outpatient [facility]counter [id number] 05/01 [facility] OFFICE O/P EST LOW 20 MIN [id number] [id number] Diagnos is: ICD-10- CM K57.20 Dvtrcli of lg int w perfora tion and abscess w/o bleedin g
MARYBETH POWELL 05/02 [facility] Outpatient Encounter [id number] 05/03 [facility] Outpatient Encounter [id number] MARILEE PEPE 05/03 [facility] Outpatient Encounter [id number] 05/04 [facility] OFF/OP EST MAY X REQ PHY/QHP [id number] [id number] Diagnos is: ICD-10- CM R03.0 Elevate d blood-p ressure reading , w/o diagnos is of htn<br/ > DIONNE [facility]UILA 05[facility]07 [facility] Out[facility] Encounter [id number] 05/07 [facility] OFFICE O/P EST LOW 20 MIN [id number] [id number] Diagnos is: ICD-10- CM K57.20 Dvtrcli of lg int w perfora tion and abscess w/o bleedin g
MARYBETH POWELL 05/09 [facility] OFFICE O/P EST MOD 30 MIN [id number] [id number] Diagnos is: ICD-10- CM I10 Essenti al (primar y) hyperte nsion<b r/> JATINDER BENITEZ 05/15 [facility] [place] [facility] OFFICE O/P EST LOW 20 MIN [id number] [id number] Diagnos is: ICD-10- CM K57.20 Dvtrcli of lg int w perfora tion and abscess w/o bleedin g
MARYBETH POWELL E 05/16 [facility] [place] [facility] Outpatient Encounter [id number] 05/21 [facility] [place] [facility] OFFICE O/P EST LOW 20 MIN [id number] [id number] Diagnos is: ICD-10- CM K57.20 Dvtrcli of lg int w perfora tion and abscess w/o bleedin g
MARYBETH POWELL E 05/28 [facility] [place] [facility] Outpatient Encounter [id number] 05/28 [facility] HC PRO PHONE CALL 5-10 MIN [id number] [id number] Diagnos is: ICD-10- CM Z71.89 Other specifi ed vocational guidance counselor ing<br/ > KASEY FABIAN RAMO G 05/28 [facility] MTMS BY PHARM EST 15 MIN [id number] [id number] Diagnos is: ICD-10- CM I10 Essenti al (primar y) hyperte nsion<b r/> Alex NG 06/04 [facility] Outpatient Encounter [id number] 06/08 [facility] ELECTROCAR DIOGRAM REPORT [id number] [id number] Diagnos is: ICD-10- CM Z13.6 Encount er for screeni ng for cardiov ascular disorde rs
YASIRYULY RMA B 06/08 [facility] OFFICE O/P EST HI 40 MIN [id number] [id number] Diagnos is: ICD-10- CM Z01.818 Encount er for other preproc edural examina tion
LILIAM POWELL 06/08 [facility] HC PRO PHONE CALL 5-10 MIN [id number] [id number] Diagnos is: ICD-10- CM Z71.89 Other specifi ed vocational guidance counselor ing<br/ > FABIAN,AN RAMO G 06/13 [facility] Outpatient Encounter [id number] 06/19 [facility] HC PRO PHONE CALL 5-10 MIN [id number] [id number] Diagnos is: ICD-10- CM Z71.89 Other specifi ed vocational guidance counselor ing<br/ > FABIAN,AN RAMO G 06/20 [facility] Outpatient Encounter [id number] [id number] SYSTEM,CIS -[place] 06/21 [facility] Outpatient Encounter [id number] AL CANELA 06/21 [facility] EMERGENCY DEPT VISIT [facility] [id number] [id number] Diagnos is: ICD-10- CM K57.20 Dvtrcli of lg int w perfora tion and abscess w/o bleedin g
TAQUERIA MARTINEZ R 06/21 [facility] Drainage of Peritoneal Cavity with Drain Dev, Perc Approach [id number] [id number] Admit Reason: COMPLIC ATED DIVERTI CULITIS
MEGALY,POLY HAMAZIN G 06/21 [facility] [place] [facility] Inpatient Encounter [id number] SYSTEM,CIS -[place] 06/21 [place] [facility] [place] [facility] Inpatient Encounter [id number] Manish CHACKO 06/21 [place] [facility] [place] [facility] Inpatient Encounter [id number] [id number] SYSTEM,CIS -[place] 06/22 [place] [facility] [place] [facility] Inpatient Encounter [id number] [id number] Manish CHACKO 06/22 [place] [facility] [place] [facility] Inpatient Encounter [id number] 06/22 [facility] [place] [facility] Inpatient Encounter [id number] [id number] BEBETO QUINTERO 06/22 [facility] IP/OBS CNSLTJ NEW/EST MOD 60 [id number] [id number] Diagnos is: ICD-10- CM I50.22 Chronic systoli c (conges tive) heart failure
MARY ZAZUETA 06/22 [facility] [place] [facility] Inpatient Encounter [id number] [id number] DEJA BADILLO 06/22 [place] [facility] [place] [facility] Inpatient Encounter [id number] [id number] JANET CHOWDHURY 06/22 [place] [facility] [place] [facility] Inpatient Encounter [id number] [id number] SYSTEM,CIS -[place] 06/23 [facility] [place] [facility] SBSQ HOSP IP/OBS SF/LOW 25 [id number] [id number] Diagnos is: ICD-10- CM K57.90 Dvrtclo s of intest, part unsp, w/o perf or abscess w/o bleed<b r/> TAWNYABAR SOCORROWENCESLAO G 06/23 [facility] [place] [facility] Inpatient Encounter [id number] [id number] ZACKARY JOSE R 06/23 [facility] [place] [facility] Inpatient Encounter [id number] [id number] TAWNYABAR SOCORROWENCESLAO G 06/23 [facility] [place] [facility] Inpatient Encounter [id number] [id number] Kofi PEMBERTON 06/23 [facility] [place] [facility] Inpatient Encounter [id number] [id number] RADHA JONES 06/24 [facility] [place] [facility] Inpatient Encounter [id number] [id number] SYSTEM,CIS -[place] 06/24 [facility] [place] [facility] Inpatient Encounter [id number] [id number] Rita PERSON A 06/24 [facility] [place] [facility] Inpatient Encounter [id number] [id number] TANK PORTER 06/24 [facility] [place] [facility] Inpatient Encounter [id number] [id number] RADHA GRAVES A 06/24 [facility] [place] [facility] Inpatient Encounter [id number] [id number] SYSTEM,CIS -ARK 06/25 [facility] [place] [facility] Inpatient Encounter [id number] [id number] MCKAY TOBIN 06/25 [place] [facility] [place] [facility] Inpatient Encounter [id number] [id number] RADHA WEST E 06/25 [place] [facility] [place] [facility] Inpatient Encounter [id number] [id number] CASSANDRAGRAZYNAAlex Onofre 06/25 [place] [facility] [place] [facility] Outpatient Encounter [id number] [id number] 06/25 [place] [facility] [place] [facility] Outpatient Encounter [id number] [id number] 06/25 [place] [facility] [place] [facility] Outpatient Encounter [id number] [id number] 06/28 [place] [facility] [place] [facility] Outpatient Encounter [id number] [id number] 06/30 [place] [facility] [place] [facility] Outpatient Encounter [id number] [id number] 07/02 [place] [facility] [place] [facility] Outpatient Encounter [id number] 07/03 [place] [facility] [place] [facility] Outpatient Encounter [id number] [id number] SYSTEM,[facility] 07/03 [place] [facility] [place] [facility] Inpatient Encounter [id number] [id number] Admit Reason: DIVERTI CULITIS
WENCESLAO ARREDONDO 07/03 [facility] [place] [facility] Inpatient Encounter [id number] [id number] Admit Reason: DIVERTI CULITIS
WENCESLAO ARREDONDO 07/03 [facility] [place] [facility] CYSTOSCOPY AND TREATMENT [id number] [id number] Admit Reason: DIVERTI CULITIS
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 INDIVIDU [id number] [id number] Diagnos is: ICD-10- CM Z71.81 Spiritu al or religio us vocational guidance counselor ing<br/ > My HELTON 07/03 [facility] [place] [facility] Inpatient Encounter [id number] [id number] BRIDGER WYMAN 07/03 [facility] [place] [facility] Inpatient Encounter [id number] [id number] WENCESLAO ARREDONDO 07/03 [facility] Inpatient Encounter [id number] [id number] FIORELLA SALES PP 07/03 [facility] [place] [facility] Inpatient Encounter [id number] [id number] SYSTEM,CIS -[place] 07/03 [facility] OFFICE O/P NEW MOD 45 MIN [id number] [id number] Diagnos is: ICD-10- CM Z01.818 Encount er for other preproc edural examina tion
RAYMUNDO CARBONE 07/03 [facility] [place] [facility] Inpatient Encounter [id number] [id number] WENCESLAO ARREDONDO 07/03 [facility] [place] [facility] Inpatient Encounter [id number] [id number] SYSTEM,CIS -[place] 07/03 [facility] [place] [facility] Inpatient Encounter [id number] WENCESLAO ARREDONDO 07/03 [place] [facility] [place] [facility] Inpatient Encounter [id number] WENCESLAO ARREDONDO 07/03 [place] [facility] [place] [facility] Inpatient Encounter [id number] [id number] SYSTEM,CIS -[place] 07/04 [place] [facility] [place] [facility] Inpatient Encounter [id number] Manish PINTO 07/04 [facility] Inpatient Encounter [id number] [id number] WENCESLAO ARREDONDO 07/04 [facility] OFF/OP EST MAY X REQ PHY/QHP [id number] [id number] Diagnos is: ICD-10- CM Z51.89 Encount er for other specifi ed afterca re
EDUARDO ALEJO 07/04 [facility] POSTOP FOLLOW-UP VISIT [id number] Diagnos is: ICD-10- CM K57.90 Dvrtclo s of intest, part unsp, w/o perf or abscess w/o bleed<b r/> WENCESLAO ARREDONDO 07/04 [facility] [place] [facility] Inpatient Encounter [id number] JULIOCESAR COREAS ECCA L 07/04 [facility] Inpatient Encounter [id number] SYSTEM,CIS -ARK 07/05 [place] [facility] [place] [facility] Inpatient Encounter [id number] Manish PINTO 07/05 [facility] OT EVAL LOW COMPLEX 30 MIN [id number] Diagnos is: ICD-10- CM Z73.6 Limitat ion of activit ies due to disabil ity<br/ > SEFERINO KEYES 07/05 [facility] [place] [facility] Inpatient Encounter [id number] MARYBETH POWELL 07/05 [facility] PT EVAL LOW COMPLEX 20 MIN [id number] Diagnos is: ICD-10- CM Z74.09 Other reduced mobilit y
NIKOLAY BAILEY 07/05 [facility] SBSQ HOSP IP/OBS MODERATE 35 [id number] Diagnos is: ICD-10- CM I50.22 Chronic systoli c (conges tive) heart failure
MARY ZAZUETA 07/05 [facility] Inpatient Encounter [id number] MARTI LEE 07/05 [facility] Inpatient Encounter [id number] CHAPO VALENZUELA 07/05 [facility] Inpatient Encounter [id number] DUDLEY WINKLER -ARK 07/06 [facility] [place] [facility] Inpatient Encounter [id number] ROSSY TAM A 07/06 [facility] POSTOP FOLLOW-UP VISIT [id number] Diagnos is: ICD-10- CM K57.90 Dvrtclo s of intest, part unsp, w/o perf or abscess w/o bleed<b r/> ARNULFO SOCORROWENCESLAO G 07/06 [facility] SBSQ HOSP IP/OBS MODERATE 35 [id number] Diagnos is: ICD-10- CM R00.1 Bradyca rdia, unspeci fied
MARY ZAZUETA 07/06 [facility] Inpatient Encounter [id number] Radu BRASHER 07/06 [facility] Inpatient Encounter [id number] SYSTEM,CIS -ARK 07/07 [facility] Inpatient Encounter [id number] Manish PINTO 07/07 [facility] Inpatient Encounter [id number] ZACKARY JOSE 07/07 [facility] Inpatient Encounter [id number] WENCESLAO ARREDONDO 07/07 [facility] Inpatient Encounter [id number] Manish PINTO 07/07 [facility] Inpatient Encounter [id number] SYSTEM,CIS -ARK 07/08 [facility] Inpatient Encounter [id number] Rita PERSON 07/08 [facility] Inpatient Encounter [id number] Radu BRASHER 07/08 [place] [facility] [place] [facility] Inpatient Encounter [id number] Manish PINTO 07/08 [place] [place] [facility] Inpatient Encounter [id number] SYSTEM,CIS -ARK 07/09 [place] [facility] [place] [facility] Inpatient Encounter [id number] RAYGOZAKATLYN Jeronimo 07/09 [place] [facility] [place] [facility] Inpatient Encounter [id number] Radu BRASHER G 07/09 [place] [place] [facility] Inpatient Encounter [id number] RUDDY RAMÍREZ 07/09 [place] [facility] [place] [facility] Inpatient Encounter [id number] RADHA JONES 07/10 [place] [facility] [place] [facility] Inpatient Encounter [id number] SYSTEM,CIS -ARK 07/10 [place] [facility] [place] [facility] Inpatient Encounter [id number] NAIMA AN 07/10 [place] [facility] [place] [facility] Inpatient Encounter [id number] 07/10 [place] [facility] [place] [facility] Inpatient Encounter [id number] 07/10 [place] [facility] [place] [facility] Outpatient Encounter [id number] 07/10 [place] [facility] [place] [facility] Outpatient Encounter [id number] 07/10 [place] [facility] [place] [facility] Outpatient Encounter [id number] 07/11 [place] [facility] [place] [facility] Outpatient Encounter [id number] 07/13 [place] [facility] [place] [facility] Outpatient Encounter [id number] Kingston TIRADO 07/13 [place] [facility] [place] [facility] Outpatient Encounter [id number] 07/16 [place] [facility] Procedures Combined list of: 1) Procedures from Department of Veterans Affairs facilities going back up to thelast 18 months, not all [place] non-surgical procedures are included; 2) All procedures from the Department of [facility] facilities. Procedure Procedure Type Code Date Perfomer Comments Sourc e Cystoscopy, Bilateral Ureteral Stent Placement CYSTOSCOPY AND TREATMENT [id number] 07/03/20 24 CHARITO SALES Procedure CPT Code(s): GR-SERVICE BY VA RESIDENT, LT-LEFT SIDE [facility] laproscopic converted to open sigmoid colectomy, splenic flexure mobilization, diverting loop ileostomy, flexable sigmoidoscopy L COLECTOMY/COLO PROCTOSTOMY [id number] 07/03/20 24 Alex ARREDONDO GR-SERVICE BY VA RESIDENT [facility] Social History Combined list of available smoking, tobacco, and other social history from Department of Defense and Veterans Affairs facilities. Social History Type Response Date Comment Sourc e Tobacco smoking status CTIS VA-TOBACCO FORMER USER 05/15/2024 [facility] History of tobacco use CA-TOBACCO QUIT 1 5 YRS OR MORE 05/15/2024 [facility] History of tobacco use VA-TOBACCO FORMER USER 05/06/2023 [facility] History of tobacco use CA-TOBACCO QUIT 1 5 YRS OR MORE 06/04/2022 [facility] History of tobacco use VA-TOBACCO FORMER USER 07/10/2021 [facility] History of tobacco use VA-TOBACCO FORMER USER 05/23/2020 [facility] History of tobacco use VA-TOBACCO FORMER USER 03/20/2019 [facility] History of tobacco use FORMER TOBACCO US ER 7Y OR GREATER 03/21/2018 [facility] History of tobacco use FORMER TOBACCO US ER 7Y OR GREATER 02/24/2017 [facility] History of tobacco use FORMER TOBACCO US E >1Y <7Y 01/07/2016 [facility] History of tobacco use FORMER TOBACCO USE <1Y 02/03/2015 [facility] History of tobacco use CURRENT TOBACCO USER 02/26/2014 [facility] History of tobacco use CURRENT TOBACCO USER 05/13/2011 [facility] Plan of Care List of future care activities from [facility] facilities. Additional future care activities may be listed in the Assessment and Plan section. Date/Time Care Activity Care Activity Detail Facili ty 06/08/2024 Laboratory - Chemistry Order URINALYSIS U RINE WC ONCE [facility] 06/12/2024 Laboratory - Chemistry Order BNP PLASMA S P ONCE [facility] 06/21/2024 Laboratory - Blood B ank Order TYPE and SCREEN - LAB BLOOD WC [facility] 07/03/2024 Laboratory - Blood B ank Order TYPE and SCREEN - LAB BLOOD [facility] 07/16/2024 Laboratory - Chemistry Order CBC BLOOD SP ONCE [facility] 07/17/2024 Laboratory - Chemistry Order BAS IC METABOLIC PANEL+MG PLASMA SP ONCE [facility] Advance Directives List of completed, amended, or rescinded Advance Directives on record at [facility] facilities. An actual copy of the Directive is not included. Date Advance Directive Provider Source 03/23/2016 CLINICAL WARNING TIM TERAN [facility]
[2024-07-16 07:06] LABS: Slide Review Reflex No
--- OUTSIDE RECORDS SUMMARY | 2024-07-16 07:06 | XMS_ITS | Encounter Summary ---
Author Name [facility] [place] Address [address] [place] [address] Care Team Providers Care Cnc Mill Operator Name Role Phone JATINDER BENTIEZ Primary Care Provider Unavail able Insurance Providers: [...] PART A Sep 29, 2016 PART A [id number] [phone] JUDY WEAVER PATIENT Selected Encounter This section includes the information on record at [place] for the Encounter. Date/Time Encounter Type Encounter Description Reason Provider Source December 29, 2023 08:45 AM CONFORMITY EVALUATION AUDIOLOGY ICD-10-CM H90.3 Sensorineural hearing loss, bilateral PRAFUL NIELSON IHAlex Encounter Template Text not used by [place] Assessments - Encounter Diagnoses This section includes the primary and secondary diagnoses documented for the Encounter. Date/Time Primary/Secondary Diagnosis Diagnosis Name Provider Source December 29, 2023 08:52 AM PRIMARY Sensorineural hearing loss, bilateral PRAFUL NIELSON ITTA Maeve [facility] December 29, 2023 08:52 AM SECONDARY Encounter for fitting and adjustment of hearing aid PRAFUL NIELSON [facility] December 29, 2023 08:52 AM SECONDARY Tinnitus, bilateral [place],BR ITTA K [facility] Plan of Treatment: Future Appointments (+ 6 months) and Future Tests (+/- 45 days) The Plan of Treatment section includes future care activities for the patient from all [place] [facility] This section includes future appointments and future orders which are active, pending or scheduled. Future Appointments This section includes appointments that were scheduled to occur 6 months from the date of the Encounter, up to a maximum of 20 appointments. The data comes from all [place] treatment facilities. Appointment Date/Time Appointment Type Appointme nt Facility Name January 24, 2024 07:00 AM [place] [facility] Jan 30, 2024 09:30 AM [place] [facility] Apr 21, 2024 07:28 AM [place] [place] [facility] Apr 23, 2024 08:00 AM [place] [place] [facility] Apr 27, 2024 02:30 PM [facility] [place] [facility] May 02, 2024 10:00 AM [place] [facility] May 04, 2024 09:00 AM [facility] [place] [facility] May 07, 2024 08:45 AM [place] [facility] May 08, 2024 02:00 PM [facility] [place] [facility] May 09, 2024 07:30 AM [place] [place] [facility] May 11, 2024 01:00 PM [facility] [place] [facility] May 11, 2024 03:30 PM [facility] [place] [facility] May 15, 2024 08:30 AM [place] [place] [facility] May 16, 2024 07:45 AM [place] [facility] May 22, 2024 07:30 AM [facility] [place] [facility] May 22, 2024 05:30 PM [facility] [place]ONE [place] [facility] May 25, 2024 08:22 AM [facility] [place] [facility] May 25, 2024 09:00 AM [facility] [place] [facility] May 28, 2024 08:15 AM [place] [facility] Jun 04, 2024 11:30 AM [facility] [place]ONE [place] [facility] Social History: Smoking Status (Most current) and Tobacco Use (All prior to encounter date) This section includes the most current, and the historical, smoking and tobacco- related health factors from the [place] facility where the Encounter took place. Current Smoking Status This section includes the most current smoking, or tobacco-related health factor, from the [place] facility where the Encounter took place. Date/Time Current Smoking Status Comment Facil ity May 06, 2023 11:30 AM VA-TOBACCO FORMER USER [facility] Tobacco Use History This section includes a history of the smoking, or tobacco-related health factors, that were collected on or before the date of the Encounter. The data comes from the [place] facility where the Encounter took place. Date/Time [...] ALL of a patient's completed or amended [place] Advance and Rescinded Directives. The entries below indicate that a directive exists for the patient, but an actual copy is not included with this document. The data comes from all [facility] facilities. Date Advance Directives Provider Source Mar 23, 2016 CLINICAL WARNING TIM TERAN [facility] Radiology Reports: +/- 30 days [...] the Encounter. The data comes from all [place] treatment facilities. Date/Time Radiology Report Provider Source January 24, 2024 06:42 AM LDCT LUNG CANCER S CREENING: FLACA WEAVER [id number] -1950 M Exm Date: JANUARY 24, 2024@06:42 Req Phys: JATINDER BENITEZ Loc: [facility] PULM CHART CHECK [facility] (Req' Img Loc: CT IMAGING Service: [place] [address] (Case [id number] COMPLETE) LDCT LUNG CANCER SCREENING (CT Detailed) CPT:91084 Reason for Study: LDCT for LUNG CANCER [...] 24, 2024 Date Verified: JANUARY 24, 2024 Continuous Process Machine Operator E-Sig:/ES/LISA PENDLETON MD Report: EXAM: LDCT [...] Primary Interpreting Staff: LISA PENDLETON MD, RADIOLOGIST (Continuous Process Machine Operator) /LISA CARDONA [facility] Encounter Notes: All associated encounter notes This section contains the clinical notes associated to the Encounter. Date/Time Encounter Note(s) Provider Source December 29, 2023 07:36 AM AUDIOLOGY NOTE: LOCAL TITLE: AUDIOLOGY CLINIC NOTE STANDARD TITLE: AUDIOLOGY NOTE DATE OF NOTE: DECEMBER 29, 2023@07:36 ENTRY DATE: DECEMBER 29, 2023@07:36:52 AUTHOR: CAROLYN NIELSON COSIGNER: URGENCY: STATUS: COMPLETED DIAGNOSIS: Encounter for Fitting and Adjustment of Hearing Aid Sensorineural loss, bilateral Tinnitus, bilateral REASON FOR VISIT: Therapeutic - hearing aid fitting, conformity evaluation (real-ear measures), orientation and counseling LOCATION OF VISIT (ROOM NUMBER): [id number] [place] was seen for Hearing Aid [place] Appointment HISTORY: has never used hearing aids previously. HEARING AIDS (Right) fit: 12/29/2023 Make: Phonak Model: Audeo L90-RL LEONA Serial Numbers R: [id number] Deputy Felony Clerk/Slim Tube Size: 2M Dome/Earmold: canal cShell ACCESSORIES: Android (jeferson only) OTOSCOPY: Both Ears: Free of excessive cerumen. Normal anatomy bilaterally ACTION: Hearing aid(s) are a good physical fit. Feedback test was completed and feedback senior manager mergers & acquisitions was activated. Hearing aid(s) were programmed to prescriptive targets, which were derived from the Veterans hearing loss. CONFORMITY EVAUATION (VERIFICATION OF HEARING AID FUNCTION): Real Ear Aided Response (REAR) was measured using the My Own Crownifit 2 system using NAL-NL2 targets. Most targets [...] balance between ears after adjustments were made. [place] reported a comfortable fit. demonstrated understanding of the new aid(s) and was able to insert the hearing aid(s) appropriately, as well as manipulate the volume control and charging unit. Indicator tones were demonstrated for . Volume control enabled- Synchronized Program button enabled Veterans hearing aid(s) were paired to the patient's jeferson. The radio installer phone application was reviewed in detail (volume [...] high noise levels -Warning about battery ingestion -[facility] and Call Center contact information and services, including the trial period. Prognosis for success is good, given the Veterans response to the hearing aid(s). Hearing aid(s) were issued and supplies were mailed. was provided with a copy of [place] issuance form 2477b. PLAN: [place] will return to clinic for service as needed. Patient is in agreement with this plan. /alexi/ CAROLYN NIELSON SPECTROGRAPHER Signed: 12/29/2023 08:55 CAROLYN NIELSON [facility]
--- OUTSIDE RECORDS SUMMARY | 2024-07-16 07:06 | XMS_ITS | Encounter Summary ---
Author Name [facility] [place] Address [address] [place] [address] Care Team Providers Care Recruiting Intern Name Role Phone JATINDER BENITEZ Primary Care [...] PART A Sep 29, 2016 PART A [id number] [phone] JUDY WEAVER PATIENT Selected Encounter This section includes the information on record at [place] for the Encounter. Date/Time Encounter Type Encounter Description Reason Provider Source Nov 29, 2023 07:45 AM TYMPANOMETRY AUDIOLOGY ICD-10-CM Z01.118 Encntr for exam of ears and hearing w oth abnormal findings STEVE NIELSON K IHE Encounter Template Text not used by [place] Assessments - Encounter Diagnoses This section includes the primary and secondary diagnoses documented for the Encounter. Date/Time Primary/Secondary Diagnosis Diagnosis Name Provider Source Nov 29, 2023 08:03 AM PRIMARY Encntr for exam of ears and hearing w oth abnormal findings PRAFUL NIELSON ITTA K [facility] Nov 29, 2023 08:03 AM SECONDARY Sensorineural hearing loss, bilateral PRAFUL NIELSONA K [facility] Nov 29, 2023 08:03 AM SECONDARY Tinnitus, bilateral [place],BR NHUNGA K [facility] Plan of Treatment: Future Appointments (+ 6 months) and Future Tests (+/- 45 days) The Plan of Treatment section includes future care activities for the patient from all [place] [facility]. This section includes future appointments and future orders which are active, pending or scheduled. Future Appointments This section includes appointments that were scheduled to occur 6 months from the date of the Encounter, up to a maximum of 20 appointments. The data comes from all [place] treatment facilities. Appointment Date/Time Appointment Type Appointme nt Facility Name December 29, 2023 08:45 AM [place] [facility] January 24, 2024 07:00 AM [place] [facility] Jan 30, 2024 09:30 AM [place] [facility] Apr 21, 2024 07:28 AM [place] [facility] Apr 23, 2024 08:00 AM [place] [facility] Apr 27, 2024 02:30 PM [place] - N[place] [facility] May 02, 2024 10:00 AM [place] [facility] May 04, 2024 09:00 AM [place] - [place] [facility] May 07, 2024 08:45 AM [place] [facility] May 08, 2024 02:00 PM [place] - [place] [facility] May 09, 2024 07:30 AM [place] [facility] May 11, 2024 01:00 PM [place] - [place] [facility] May 11, 2024 03:30 PM [place] [facility] May 15, 2024 08:30 AM [place] [facility] May 16, 2024 07:45 AM [place] [facility] May 22, 2024 07:30 AM [place] [facility] May 22, 2024 05:30 PM [place] - [place] [facility] May 25, 2024 08:22 AM [place] [facility] May 25, 2024 09:00 AM [place] [facility] May 28, 2024 08:15 AM [place] [facility] Social History: Smoking Status (Most current) [...] 06, 2023 11:30 AM VA-TOBACCO FORMER USER [facility] Tobacco Use History This section includes a history of the smoking, or tobacco-related health factors, that were collected on or before the date of the Encounter. The data comes from the [place] facility where the Encounter took place. Date/Time Smoking Status/Tobacco Use Comment F acility May 06, 2023 11:30 AM VA-TOBACCO QUIT 15 YRS OR MORE [facility] Jun 04, 2022 09:00 AM VA-TOBACCO FORMER USER [facility] Jun 04, 2022 09:00 AM VA-TOBACCO QUIT 15 YRS OR MORE [facility] Jul 10, 2021 08:00 AM VA-TOBACCO FORMER USER [facility] Jul 10, 2021 08:00 AM VA-TOBACCO QUIT 5 TO < 15 YRS [facility] May 23, 2020 08:30 AM VA-TOBACCO FORMER USER [facility] May 23, 2020 08:30 AM VA-TOBACCO QUIT 5 TO < 15 YRS [facility] Mar 20, 2019 04:03 PM VA-TOBACCO FORMER USER [facility] Mar 20, 2019 04:03 PM VA-TOBACCO QUIT 5 TO < 15 YRS [facility] Mar 21, 2018 08:13 AM FORMER TOBACCO USER 7Y OR GREATE R [facility] Feb 24, 2017 09:24 AM FORMER TOBACCO USER 7Y OR GREATE R [facility] January 07, 2016 08:01 AM FORMER TOBACCO USE >1Y <7Y [facility] Feb 03, 2015 07:58 AM FORMER TOBACCO USE <1Y [facility] Feb 26, 2014 08:41 AM CURRENT TOBACCO USER [facility] May 13, 2011 01:45 PM CURRENT TOBACCO USER [facility] Advance Directives: All historical and current [...] Mar 23, 2016 CLINICAL WARNING TIM TERAN [facility] Encounter Notes: All associated encounter notes This section contains the clinical notes associated to the Encounter. Date/Time Encounter Note(s) Provider Source Nov 29, 2023 08:06 AM SUICIDE PREVENTION RISK ASSESSMENT SCREENING NOTE: LOCAL TITLE: [place] SCREENING NOTE STANDARD TITLE: SUICIDE PREVENTION RISK ASSESSMENT SCREENING NOT DATE OF NOTE: NOV 29, 2023@08:06 ENTRY DATE: NOV 29, 2023@08:06:13 AUTHOR: CAROLYN NIELSON EXP COSIGNER: URGENCY: STATUS: COMPLETED C-SSRS Screening Means-Suicide Severity Rating Scale (C-SSRS Screener) 1. Over [...] responses to other questions. /alexi/ CAROLYN NIELSON MACHINE ASSISTANT Signed: 11/29/2023 08:19 CAROLYN NIELSON [facility] Nov 29, 2023 07:19 AM AUDIOLOGY NOTE: LOCAL TITLE: AUDIOLOGY CLINIC NOTE STANDARD TITLE: AUDIOLOGY NOTE DATE OF NOTE: NOV 29, 2023@07:19 ENTRY DATE: NOV 29, 2023@07:19:32 AUTHOR: CAROLYN NIELSON COSIGNER: URGENCY: STATUS: COMPLETED DIAGNOSIS: Encounter for examination of ears and hearing Sensorineural loss, bilateral Tinnitus, bilateral REASON FOR VISIT: HEARING EVALUATION AND HEARING AID SELECTION, 60 MINUTES: was seen in the clinic today for a comprehensive audiologic evaluation, hearing aid selection, and counseling. LOCATION OF VISIT (ROOM NUMBER): [id number] The was last seen in this clinic on 10/27/2022. The is NOT Service Connected for Hearing Loss / Tinnitus. [place] was unaccompanied. The has never worn hearing aids before. HISTORY: [place] seen reporting difficulties hearing, particularly when people are speaking on his right side and in a crowd. He has a history of asymmetric sensorineural hearing loss and tinnitus. He was seen last year and had otitis externa, which was treated by ENT. He noted he is occasionally lightheaded when getting up. He is interested in pursuing a hearing aid for the right ear. [place] reported he had more noise exposure to [...] headphones Reliability: Good RIGHT EAR (Hz) 250 676 064 7977 1500 2000 3000 4000 6000 8000 Air: See Audiogram Display under Tools / AUDIOLOGY / ROES or see SKINNY Database Bone: See Audiogram Display under Tools / AUDIOLOGY / ROES or see SKINNY Database LEFT EAR (Hz) 250 620 167 7334 1500 2000 3000 4000 6000 8000 Air: See Audiogram Display under Tools / AUDIOLOGY / ROES or see SKINNY Database Bone: See Audiogram Display under Tools / AUDIOLOGY / ROES or see SKINNY Database - All thresholds are in dB HL * = Masked Threshold SRT: Spondees Right: 30 dB HL Left: 20 dB HL Pure tone results were consistent with speech websphere administrator thresholds. WORD RECOGNITION: / -22 word list RIGHT EAR: 96% Level: 70* [...] consistent with normal eardrum movement. AMPLIFICATION: - [place] is a good candidate for hearing aid use, particularly for the right ear. - was counseled on his type, degree and [...] and dexterity for hearing aid use. - [place] counseled on realistic expectations associated with adjusting to hearing aids, use of the devices, [place] procedures and trial period. - counseled on effective communication strategies. - counseled on tinnitus management. - Earmold impression taken of the right ear without complication. Otoscopy normal post earmold impression procedure, AD. - Hearing aid ordered: Phonak myaNUMBEReo L90-RL LEONA RIGHT hearing aid (Card Scanning SolutionsalEmergenSee, Size 2xM biochemical development engineer, canal cShell, AOVs, Wax traps, removal strings) were selected and ordered today. PLAN: - [place] will be scheduled for a 60-minute hearing aid fitting appointment. - Monitor hearing for increase in asymmetry of hearing loss and/or word recognition scores. If otologic symptoms arise or asymmetry increases, ENT referral may be warranted at this time. - PATIENT IS IN AGREEMENT WITH THIS PLAN. /alexi/ CAROLYN NIELSON MACHINE ASSISTANT Signed: 11/29/2023 08:19 CAROLYN NIELSON [facility]
--- OUTSIDE RECORDS SUMMARY | 2024-07-16 07:06 | XMS_ITS | Encounter Summary ---
Author Name [facility] [place] Organization [facility] [place] Address [address] [place] [address] Care Team Providers Care Manager Inventory Name Role Phone JATINDER BENITEZ Primary Care [...] PART A Sep 29, 2016 PART A [id number] [phone] JUDY WEAVER PATIENT Selected Encounter This section includes the information on record at [place] for the Encounter. Date/Time Encounter Type Encounter Description Reason Provider Source Dec 15, 2023 04:08 PM Outpatient Encounter ADMIN PAT ACTIVTIES (MASNONCT) LINO BENITEZ E Encounter Template Text not used by [place] Plan of Treatment: Future Appointments (+ 6 months) and Future Tests (+/- 45 days) The Plan of Treatment section includes future care activities for the patient from all [place] treatmentfacilities. This section includes future appointments and future orders which are active, pending or scheduled. Future Appointments This section includes appointments that were scheduled to occur 6 months from the date of the Encounter, up to a maximum of 20 appointments. The data comes from all [place] treatment facilities. Appointment Date/Time Appointment Type Appointme nt Facility Name December 29, 2023 08:45 AM AM[place]ORY [place] [facility] January 24, 2024 07:00 AM AMBULATORY [...] AMBULATORY - [place] [facility] Social History: Smoking Status (Most current) and Tobacco Use (All prior to encounter date) This section includes the most current, and the historical, smoking and tobacco- related health factors from the [place] facility where the Encounter took place. Current Smoking Status This section includes the most current smoking, or tobacco-related health factor, from the [place] facility where the Encounter took place. Date/Time Current Smoking Status Patty putnam May 06, 2023 11:30 AM VA-TOBACCO QUIT 15 YRS OR MORE [facility] Tobacco Use History This section includes a history of the smoking, or tobacco-related health factors, that were collected on or before the date of the Encounter. The data comes from the [place] facility where the Encounter took place. Date/Time Smoking Status/Tobacco Use Comment F acility May 06, 2023 11:30 AM VA-TOBACCO QUIT 15 YRS OR MORE [facility] Jun 04, 2022 09:00 AM VA-TOBACCO FORMER USER [facility] Jun 04, 2022 09:00 AM VA-TOBACCO QUIT 15 YRS OR MORE [facility] Jul 10, 2021 08:00 AM VA-TOBACCO FORMER USER [facility] Jul 10, 2021 08:00 AM VA-TOBACCO QUIT 5 TO < 15 YRS [facility] May 23, 2020 08:30 AM VA-TOBACCO FORMER USER [facility] May 23, 2020 08:30 AM VA-TOBACCO QUIT 5 TO < 15 YRS [facility] Mar 20, 2019 04:03 PM VA-TOBACCO FORMER USER [facility] Mar 20, 2019 04:03 PM VA-TOBACCO QUIT 5 TO < 15 YRS [facility] Mar 21, 2018 08:13 AM FORMER TOBACCO USER 7Y OR GREATE R [facility] Feb 24, 2017 09:24 AM FORMER TOBACCO USER 7Y OR GREATE R [facility] January 07, 2016 08:01 AM FORMER TOBACCO USE >1Y <7Y [facility] Feb 03, 2015 07:58 AM FORMER TOBACCO USE <1Y [facility] Feb 26, 2014 08:41 AM CURRENT TOBACCO USER [facility] May 13, 2011 01:45 PM CURRENT TOBACCO USER [facility] Advance Directives: All historical and current Section Date Range: From patient's date of to the date document was created. This section includes ALL of a patient's completed or amended [place] Advance and Rescinded Directives. The entries below indicate that a directive exists for the patient, but an actual copy is not included with this document. The data comes from all [facility]. Date Advance Directives Provider Source Mar 23, 2016 CLINICAL WARNING [facility] Encounter Notes: All associated encounter notes This section contains the clinical notes associated to the Encounter. Date/Time Encounter Note(s) Provider Source Dec 15, 2023 04:08 PM PULMONARY NOTE: LOCAL TITLE: PULMONARY LUNG CANCER SCREENING STANDARD TITLE: PULMONARY NOTE DATE OF NOTE: DEC 15, 2023@16:08 ENTRY DATE: DEC 15, 2023@16:08:53 AUTHOR: STIBBE,ELIGIO E EXP COSIGNER: URGENCY: STATUS: COMPLETED Repeat Lung Cancer Screen (Provider): Patient continues to be a candidate for screening, there are no new clinical exclusions. No abnormal findings suspicious for lung CA present on last chest CT. Screening process reviewed with patient and patient AGREES to continue screening. Chest CT will be ordered. Based on chart review. /alexi/ ELIGIO Johnson. DENISE JOE, RN LCS Manager Ecommerce Signed: 12/15/2023 16:10 ELIGIO JOE [facility]
--- OUTSIDE RECORDS SUMMARY | 2024-07-16 07:06 | XMS_ITS | Encounter Summary ---
Author Name [facility] [place] [facility] [place] Address [address] [place] [address] Care Team Providers Care Assistant Portfolio Manager Name Role Phone JATINDER BENITEZ Primary [...] PART A Sep 29, 2016 PART A [id number] [phone] JUDY WEAVER PATIENT Selected Encounter This section includes the information on record at [place] for the Encounter. Date/Time Encounter Type Encounter Description Reason Provider Source January 25, 2024 11:19 AM Outpatient Encounter ADMIN PAT ACTIVTIES (MASNONCT) LINO BENITEZ E Encounter Template Text not used by [place] Plan of Treatment: Future Appointments (+ 6 [...] 20 appointments. The data comes from all [place] treatment facilities. Appointment Date/Time Appointment Type Appointme nt Facility Name Jan 30, 2024 09:30 AM [place] [facility] Apr 21, 2024 07:28 AM [place] [facility] Apr 23, 2024 08:00 AM [place] [facility] Apr 27, 2024 02:30 PM [place]ORY - [place]ONE [place] [facility] May 02, 2024 10:00 AM [place]UL[place]ORY [place] [facility] May 04, 2024 09:00 AM [place]ORY [place] [facility] May 07, 2024 08:45 AM [place]ORY [place]IC[place] [facility] May 08, 2024 02:00 PM AM[place]ORY - [place]ONE [place] [facility] May 09, 2024 07:30 AM AM[place]ORY [place] [facility] May 11, 2024 01:00 PM AM[place]UL[place]ORY - [place]ONE [place] [facility] May 11, 2024 03:30 PM [place]ORY [place] [facility] May 15, 2024 08:30 AM [place]IC[place] [facility] May 16, 2024 07:45 AM AM[place]UL[place]ORY - [place] [facility] May 22, 2024 07:30 AM [place] [facility] May 22, 2024 05:30 PM AM[place]ORY - [place]ONE [place] [facility] May 25, 2024 08:22 AM [place]ORY - [place] [facility] May 25, 2024 09:00 AM [place]ORY [place] [facility] May 28, 2024 08:15 AM AM[place] [facility] Jun 04, 2024 11:30 AM [place] [facility] Jun 08, 2024 11:00 AM [place] [facility] Social History: Smoking Status (Most current) and Tobacco Use (All prior to encounter date) This section includes the most current, and the historical, smoking and tobacco- related health factors from the [place] facility where the Encounter took place. Current Smoking Status This section includes the most current smoking, or tobacco-related health factor, from the [place] facility where the Encounter took place. Date/Time Current Smoking Status Patty putnam May 06, 2023 11:30 AM VA-TOBACCO FORMER USER [facility] Tobacco Use [...] this document. The data comes from all [facility]. Date Advance Directives Provider Source Mar 23, 2016 CLINICAL WARNING [facility] Radiology Reports: +/- 30 [...] LDCT LUNG CANCER S CREENING: FLACA WEAVER [id number] -1950 M Exm Date: JANUARY 24, 2024@06:42 Req Phys: JATINDER BENITEZ Loc: [facility] PULM CHART CHECK LCS (Req' Img Loc: CT IMAGING Service: [place] [address] (Case [id number] COMPLETE) LDCT LUNG CANCER SCREENING (CT Detailed) CPT:09584 Reason for Study: LDCT for LUNG CANCER [...] 24, 2024 Date Verified: JANUARY 24, 2024 Dramatic Art Teacher E-Sig:/ES/LISA PENDLETON MD Report: EXAM: LDCT LUNG [...] Primary Interpreting Staff: LISA PENDLETON MD, RADIOLOGIST (Dramatic Art Teacher) /LISA CARDONA [facility] Encounter Notes: All associated encounter notes This section contains the clinical notes associated to the Encounter. Date/Time Encounter Note(s) Provider Source January 25, 2024 11:24 AM LETTERS: LOCAL TITLE: FOLLOW UP RESULTS LETTER STANDARD TITLE: LETTERS DATE OF NOTE: JANUARY 25, 2024@11:24 ENTRY DATE: JANUARY 25, 2024@11:24:11 AUTHOR: BRITTNEY PARRY EXP COSIGNER: URGENCY: STATUS: COMPLETED [facility] [place] [address] December FLACA WEAVER [address] [facility] [address] Dear : Your recent chest imaging on [...] please contact Lung Cancer Screening staff at [phone]. BRITTNEY PARRY RN Case Manager BRITTNEY PARRY [facility] January 25, 2024 11:19 AM PULMONARY NOTE: [...] Case Manager Signed: 01/25/2024 11:24 BRITTNEY PARRY [facility]
--- OUTSIDE RECORDS SUMMARY | 2024-07-16 07:06 | XMS_ITS | Encounter Summary ---
Author Name [facility] [place] Organization [place] Address [address] [place] [address] Care Team Providers Care Modern Dancer Name Role Phone JATINDER CABRERA Primary Care [...] PART A Sep 29, 2016 PART A [id number] [phone] JUDY WEAVER PATIENT Selected Encounter This section includes the information on record at [place] for the Encounter. 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 Date/Time Primary/Secondary Diagnosis Diagnosis Name Provider Source Jan 30, 2024 09:26 AM PRIMARY [place] heart disease of [place] coronary artery w/o GOLDIE Iqbal [facility] Jan 30, 2024 09:26 AM SECONDARY Encounter for immunization GOLDIE CABRERA [facility] Plan of Treatment: Future Appointments (+ 6 months) and Future Tests (+/- 45 days) The Plan of Treatment section includes future care activities for the patient [facility] This section includes future appointments and future orders which are active, pending or scheduled. Future Appointments This section includes appointments that were scheduled to occur 6 months from the date of the Encounter, up to a maximum of 20 appointments. The data comes from all [place] treatment facilities. Appointment Date/Time Appointment Type Appointme nt Facility Name Apr 21, 2024 07:28 AM [place]ORY [place] [facility] Apr 23, 2024 08:00 AM AM[place]UL[place]ORY [place] [facility] Apr 27, 2024 02:30 PM AMBULATORY - N[place] [facility] May 02, 2024 10:00 AM AM[place]UL[place]ORY [place] [facility] May 04, 2024 09:00 AM AMBULATORY - [place] [facility] May 07, 2024 08:45 AM AM[place]UL[place]ORY - [place]IC[place] [facility] May 08, 2024 02:00 PM AMBULATORY - [place]ONE [place] [facility] May 09, 2024 07:30 AM AMBULATORY - [place]GERY [place] [facility] May 11, 2024 01:00 PM AMBULATORY - [place] [facility] May 11, 2024 03:30 PM AMBULATORY - N[place] [facility] May 15, 2024 08:30 AM AM[place]ORY [place]IC[place] [facility] May 16, 2024 07:45 AM AMBULATORY - [place]GERY [place] [facility] May 22, 2024 07:30 AM AM[place]ORY [place] [facility] May 22, 2024 05:30 PM AMBULATORY - NONE [place] [facility] May 25, 2024 08:22 AM AMBULATORY - [place]ONE [place] [facility] May 25, 2024 09:00 AM AMBUL[place]ORY - [place] [facility] May 28, 2024 08:15 AM AMBUL[place]ORY - [place]GERY [place] [facility] Jun 04, 2024 11:30 AM [place]ORY [place] [facility] Jun 08, 2024 11:00 AM AMBUL[place]ORY - [place] [facility] Jun 08, 2024 12:45 PM [place]ORY - [place]ONE [place] [facility] Vital Signs: All taken on the encounter date This section contains inpatient and outpatient Vital Signs collected on the date of the Encounter. Date/Time Temperature Pulse Blood Pressure Respiratory Rate SP02 Pain Height Weight Body Mass Index Source Jan 30, 2024 08:59 AM 97.7 74 104/63 16 97 0 220.2 31 [facility] Immunizations: All administered on the encounter [...] and tobacco- related health factors from the [place] facility where the Encounter took place. Current Smoking Status This section includes the most current smoking, or tobacco-related health factor, from the [place] facility where the Encounter took place. Date/Time Current Smoking Status Comment Facil ity May 06, 2023 11:30 AM VA-TOBACCO FORMER USER [facility] Tobacco Use History This section includes a history of the smoking, or tobacco-related health factors, that were collected on or before the date of the Encounter. The data comes from the [place] facility where the Encounter took place. Date/Time [...] ALL of a patient's completed or amended [place] Advance and Rescinded Directives. The entries below indicate that a directive exists for the patient, but an actual copy is not included with this document. The data comes from all [facility]. Date Advance Directives Provider Source Mar 23, 2016 CLINICAL WARNING [facility] Radiology Reports: +/- 30 days [...] the Encounter. The data comes from all [place] treatment facilities. Date/Time Radiology Report Provider Source January 24, 2024 06:42 AM LDCT LUNG CANCER S CREENING: MEGFLACA YAMIL [id number] -1950 M Exm Date: JANUARY 24, 2024@06:42 Req Phys: JATINDER CABRERA Loc: [facility] PULM CHART CHECK [facility] (Req' Img Loc: CT IMAGING Service: [place] [address] (Case 128 COMPLETE) LDCT LUNG CANCER SCREENING (CT Detailed) CPT:69354 Reason for Study: LDCT for LUNG CANCER SCREENING (ANNUAL) Clinical History: [place] IS NOT under investigation for COVID-19 or [...] 24, 2024 Date Verified: JANUARY 24, 2024 Exercise Instructor E-Sig:/ES/LISA PENDLETON MD Report: EXAM: LDCT LUNG [...] Primary Interpreting Staff: LISA PENDLETON MD, RADIOLOGIST (Exercise Instructor) /JRT LISA PENDLETON [facility] Encounter Notes: All associated encounter [...] no longer seeing CAD s/p stenting RCA 2015 h/o heart [...] -due for LDCT for cancer screen (q. 2017) in December 2024 -spirometry normal Jun 2023 [...] 40 yr pk habit, quit 2017 quit 2022 HPI/ROS:as above Active problems - Computerized [...] . No additional CRC surveillance recommended by netsuite consultant. 9. Decreased vitamin D - 02.24.2017 [...] - By 02.13.[address] 03.14.2020 OSH(ED [place], [place]): Pt. Declined Admission. 03.14.2020 CT with Mild Sigmoid diverticulitis. 04.23.2020 ED(OSH): Declined admission. 17. 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 18. Ex-tobacco user 19. Impaired Fasting Glucose ([facility] [id number]) - 02.26.2014 A1c 5.8%. 20. Adrenal mass [...] recommended. 24. Hiatal hernia 25. Shoulder Pain ([facility] [id number]) 26. Trigger finger 27. [facility] - Community [facility] Primary: Dr. Cathi Simeon, [place] [address]. Allergies: TERAZOSIN (Mar 13, 2015) EXAM: VS: [...] Remote Allergy/ADR Data available for this patient [place] [facility] TERAZOSIN Active and Recently Outpatient Medications [...] MD Physician Signed: 01/30/2024 09:26 JATINDER CABRERA [facility] Jan 30, 2024 09:02 AM INTERNAL [...] get more. Never true Food Assistance Programs [facility] Food Assistance Programs [facility] /alexi/ GONZÁLEZ PATEL LPN Signed: 01/30/2024 09:05 01/30/2024 ADDENDUM STATUS: COMPLETED COVID-19 Immunization: Pfizer Monovalent (Comirnaty) Administered: COVID-19 (PFIZER), MRNA, LNP-S, PF, CORINA-SUCROSE, 30 MCG/0.3 ML (AGES 12+ YEARS) Date Administered: Jan 30, 2024 09:21 Precision Instrument [employer] Tool Maker: [employer] Lot: [id number] Exp Date: Apr 28, 2024 ND: [id number] Admin Route/Site: INTRAMUSCULAR/LEFT DELTOID Dosage: 0.3mL Vaccine Information Statement(s): COVID-19 MRNA VACCINE (12+ YRS) VACCINE VIS Jun 16, 2023 ([place]) Order By: Policy Administered By: González Patel Vaccine administered without complications. /jerome PATEL LPN Signed: 01/30/2024 09:22 GONZÁLEZ PATEL [facility]
--- OUTSIDE RECORDS SUMMARY | 2024-07-16 07:06 | XMS_ITS | Encounter Summary ---
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 Plan of Treatment: Future Appointments (+ 6 months) and Future Tests (+/- 45 days) The Plan of Treatment section includes future care activities for the patient from all [place] [facility]. This section includes future appointments [...] 07:45 AM AMBULATORY - SURGERY [facility] December 29, 2023 08:45 AM [facility] January 24, 2024 07:00 AM AM[facility]ULATORY - NONE [facility] Jan 30, 2024 09:30 AM AM[facility] - [facility]IC[facility] Vital Signs: All taken on the encounter date This section contains inpatient and outpatient Vital Signs collected on the date of the Encounter. Date/Time Temperature Pulse Blood Pressure Respiratory Rate SP02 Pain Height Weight Body Mass Index Source Oct 05, 2023 01:39 PM 97.6 56 149/66 18 97 0 71 225 31 [facility] Social History: Smoking Status (Most current) [...] 11:30 AM VA-TOBACCO FORMER USER [facility] Tobacco Use History This section includes a history of the smoking, or tobacco-related health factors, that were collected on or before the date of the Encounter. The data comes from the [place] facility where the Encounter took place. Date/Time Smoking Status/Tobacco Use Comment F acility May 06, 2023 11:30 AM VA-TOBACCO QUIT [address] [facility] Jun 04, 2022 09:00 AM VA-TOBACCO FORMER USER [facility] Jun 04, 2022 09:00 AM VA-TOBACCO QUIT [address] [facility] Jul 10, 2021 08:00 AM VA-TOBACCO FORMER USER [facility] Jul 10, 2021 08:00 AM VA-TOBACCO QUIT 5 TO < [address] [facility] May 23, 2020 08:30 AM VA-TOBACCO FORMER USER [facility] May 23, 2020 08:30 AM VA-TOBACCO QUIT 5 TO < [address] [facility] Mar 20, 2019 04:03 PM VA-TOBACCO FORMER USER [facility] Mar 20, 2019 04:03 PM [place]-TOBACCO QUIT 5 TO < [address] [facility] Mar 21, 2018 08:13 AM FORMER TOBACCO USER 7Y OR GREATE R [facility] Feb 24, 2017 09:24 AM FORMER TOBACCO USER 7Y OR GREATE R [facility] January 07, 2016 08:01 AM FORMER TOBACCO USE >1Y <7Y [facility] Feb 03, 2015 07:58 AM FORMER TOBACCO USE <1Y [facility] Feb 26, 2014 08:41 AM CURRENT TOBACCO USER [facility] May 13, 2011 01:45 PM CURRENT TOBACCO USER [facility] Advance Directives: All historical and current Section Date Range: From patient's date of to the date document was created. This section includes ALL of a patient's completed or amended [place] Advance and Rescinded Directives. The entries below indicate that a directive exists for the patient, but an actual copy is not included with this document. The data comes from all [place] facilities. Date Advance Directives Provider Source Mar 23, 2016 CLINICAL WARNING [facility] Pathology Reports: +/- 30 days of [...] COSIGNER: URGENCY: STATUS: COMPLETED $APHDR Reporting Lab: [facility] [CLIA# [id number]] [place] [address] - - - - - - - [...] TAM STAFF PATHOLOGIST, PATHOLOGY & LABORATORY [facility] Signed Sep 26, 2023@15:19 Performing Laboratory: Surgical Pathology Report Performed By: 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 Encounter Notes: All associated encounter [...] . No additional CRC surveillance recommended by cyber security consultant. 9. Decreased vitamin D - [...] - By 02.13.[address] 03.14.2020 OSH(ED [place], [place]): Pt. Declined Admission. 03.14.2020 CT with Mild Sigmoid diverticulitis. 04.23.2020 ED(OSH): Declined admission. 17. 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 18. Ex-tobacco user 19. Impaired Fasting Glucose ([facility] [id number]) - 02.26.2014 A1c 5.8%. 20. Adrenal mass [...] recommended. 24. Hiatal hernia 25. Shoulder Pain ([facility] [id number]) 26. Trigger finger 27. [facility]: Dr. Cathi Simeon, [facility], [place] [address]. Allergies: Reviewed TERAZOSIN (Mar 13, 2015) Pertinent [...] GASTROENTEROLOGY FELLOW Signed: 10/05/2023 15:[address] [facility] Oct 05, 2023 01:40 PM INTERNAL MEDICINE [...] LPN, LPN Signed: 10/05/2023 13:[address] [facility]
--- OUTSIDE RECORDS SUMMARY | 2024-07-16 07:06 | XMS_ITS | Encounter Summary ---
Author Name [facility] Organization [facility] [place] Address [address] [place] [address] Care Team Providers Care Greenskeeper Head Name Role Phone JATINDER CABRERA Primary Care [...] PART A Sep 29, 2016 PART A [id number] [phone] JUDY WEAVER PATIENT Selected Encounter This section includes the information on record at OR for the Encounter. Date/Time Encounter Type Encounter Description Reason Provider Source Apr 21, 2024 07:28 AM EMERGENCY DEPT VISIT [facility] EMERGENCY DEPT ICD-10-CM N32.81 Overactive bladder NOE ROJAS E Encounter Template Text not used by [place] Assessments - Encounter Diagnoses This section includes the primary and secondary diagnoses documented for the Encounter. Date/Time Primary/Secondary Diagnosis Diagnosis Name Provider Source Apr 21, 2024 09:03 AM PRIMARY Overactive bladder NOE ROJAS [facility] Plan of Treatment: Future Appointments (+ 6 [...] 08:00 AM AMBULATORY - NONE [place] [facility] [facility] Apr 27, 2024 02:30 PM AMBULATORY - NONE [place] [facility] May 02, 2024 10:00 AM AMBULATORY - SURGERY [place] [facility] May 04, 2024 09:00 AM AMBULATORY - NONE [place] [facility] May 07, 2024 08:45 AM AMBUL[place]ORY - [place]ICINE [place] [facility] May 08, 2024 02:00 PM AMBULATORY - NONE [place] [facility] May 09, 2024 07:30 AM AMBULATORY - SURGERY [place] [facility] [facility] May 11, 2024 01:00 PM AMBULATORY - NONE [place] [facility] May 11, 2024 03:30 PM AMBULATORY - NONE [place] [facility] May 15, 2024 08:30 AM [facility]UL[facility]ORY - MEDICINE [place] [facility] May 16, 2024 07:45 AM AMBULATORY - SURGERY [place] [facility] [facility] May 22, 2024 07:30 AM AMBULATORY - NONE [place] [facility] May 22, 2024 05:30 PM AMBULATORY - NONE [place] [facility] May 25, 2024 08:22 AM AMBULATORY - NONE [place] [facility] [facility] May 25, 2024 09:00 AM AMBULATORY - NONE [place] [facility] May 28, 2024 08:15 AM AMBULATORY - SURGERY [place] [facility] Jun 04, 2024 11:30 AM AMBULATORY - NONE [place] [facility] Jun 08, 2024 11:00 AM AMBULATORY - SURGERY [place] [facility] Jun 08, 2024 12:45 PM AMBULATORY - NONE [place] [facility] Jun 08, 2024 01:15 PM AMBULATORY - MEDICINE [facility] Active, Pending, and Scheduled Orders [...] Test: GRAM STAIN ~JUAN drain culture/gram stain [facility] Apr 26, 2024 10:10 AM Laboratory - Microbiology Order CULTURE & SUSCEPTIBILITY WOUND OTHER WC ONCE ~For Test: CULTURE & SUSCEPTIBILITY ~Culture sample from JUAN drain output [facility] May 28, 2024 12:00 AM Laboratory - Blood Bank Order TYPE & SCREEN - LAB BLOOD SP [facility] Lab Results: +/- 30 days of the [...] - Unit Interpretation Reference Range Comment May 21, 2024 06:59 AM [facility] BASIC METABOLIC PANEL+MG Specimen Type: PLASMA No comment entered. Ordering Provider: GOLDIE CABRERA Report Released Date/Time: May 15, 2024 08:34 AM Reporting Lab: [facility] [phone] Performing Lab: [facility] [phone] CREATININE 0.9 mg/dL 0.7-1.2 UREA NITROGEN 18 mg/dL 8-26 GLUCOSE 126 mg/dL H 70-100 SODIUM 138 mmol/L 136-145 POTASSIUM 4.0 mmol/L 3.5-5.1 CHLORIDE 105 mmol/L 98-107 CO2 24 mmol/L 22-29 CALCIUM 9.8 mg/dL 8.4-10.2 MAGNESIUM 2.0 mg/dL 1.6-2.6 ANION GAP 9 mmol/L 5-15 .CREAT EGFR(CKD-EPI) >90 >60 May 04, 2024 08:36 AM [facility] BASIC METABOLIC PANEL+MG Specimen Type: PLASMA No comment entered. Ordering Provider: GOLDIE CABRERA Report Released Date/Time: May 03, 2024 12:52 PM Reporting Lab: [facility] [phone] Performing Lab: [facility] [address] CREATININE 0.7 mg/dL 0.7-1.2 UREA NITROGEN 13 mg/dL 8-26 GLUCOSE 91 mg/dL 70-100 SODIUM 141 mmol/L 136-145 POTASSIUM 3.6 mmol/L 3.5-5.1 CHLORIDE 109 mmol/L H 98-107 CO2 25 mmol/L 22-29 CALCIUM 8.9 mg/dL 8.4-10.2 MAGNESIUM 2.0 mg/dL 1.6-2.6 ANION GAP 7 mmol/L 5-15 .CREAT EGFR(CKD-EPI) >90 >60 Apr 26, 2024 07:16 AM [facility] BASIC METABOLIC PANEL+MG Specimen Type: PLASMA No comment entered. Ordering Provider: JONO RANDOLPH Report Released Date/Time: Apr 25, 2024 02:50 PM Reporting Lab: [facility] [phone] Performing Lab: [facility] [address] CREATININE 0.7 mg/dL 0.7-1.2 UREA NITROGEN 15 mg/dL 8-26 GLUCOSE 106 mg/dL H 70-100 SODIUM 139 mmol/L 136-145 POTASSIUM 3.4 mmol/L L 3.5-5.1 CHLORIDE 105 mmol/L 98-107 CO2 25 mmol/L 22-29 CALCIUM 8.5 mg/dL 8.4-10.2 MAGNESIUM 2.2 mg/dL 1.6-2.6 ANION GAP 9 mmol/L 5-15 .CREAT EGFR(CKD-EPI) >90 >60 Apr 25, 2024 05:10 PM [facility] BASIC METABOLIC PANEL+MG Specimen Type: PLASMA No comment entered. Ordering Provider: GIOVANNI ADLER Report Released Date/Time: Apr 25, 2024 05:04 PM Reporting Lab: [facility] [address] Performing Lab: [facility] [address] CREATININE 0.7 mg/dL 0.7-1.2 UREA NITROGEN 15 mg/dL 8-26 GLUCOSE 104 mg/dL H 70-100 SODIUM 139 mmol/L 136-145 POTASSIUM 3.2 mmol/L L 3.5-5.1 CHLORIDE 103 mmol/L 98-107 CO2 28 mmol/L 22-29 CALCIUM 8.5 mg/dL 8.4-10.2 MAGNESIUM 2.2 mg/dL 1.6-2.6 ANION GAP 8 mmol/L 5-15 .CREAT EGFR(CKD-EPI) >90 >60 Apr 25, 2024 07:46 AM [facility] BASIC METABOLIC PANEL+MG Specimen Type: PLASMA No comment entered. Ordering Provider: GIOVANNI ADLER Report Released Date/Time: Apr 24, 2024 12:37 PM Reporting Lab: [facility] [address] Performing Lab: [facility] [address] CREATININE 0.7 mg/dL 0.7-1.2 UREA NITROGEN 14 mg/dL 8-26 GLUCOSE 127 mg/dL H 70-100 SODIUM 139 mmol/L 136-145 POTASSIUM 2.9 mmol/L L 3.5-5.1 CHLORIDE 101 mmol/L 98-107 CO2 29 mmol/L 22-29 CALCIUM 8.7 mg/dL 8.4-10.2 MAGNESIUM 2.3 mg/dL 1.6-2.6 ANION GAP 9 mmol/L 5-15 .CREAT EGFR(CKD-EPI) >90 >60 Apr 24, 2024 04:42 PM [facility] BASIC METABOLIC PANEL+MG Specimen Type: PLASMA No comment entered. Ordering Provider: GIOVANNI ADLER Report Released Date/Time: Apr 24, 2024 12:37 PM Reporting Lab: [facility] [address] Performing Lab: [facility] [address] CREATININE 0.7 mg/dL 0.7-1.2 UREA NITROGEN 16 mg/dL 8-26 GLUCOSE 97 mg/dL 70-100 SODIUM 138 mmol/L 136-145 POTASSIUM 2.7 mmol/L L 3.5-5.1 CHLORIDE 99 mmol/L 98-107 CO2 30 mmol/L H 22-29 CALCIUM 8.4 mg/dL 8.4-10.2 MAGNESIUM 2.1 mg/dL 1.6-2.6 ANION GAP 9 mmol/L 5-15 .CREAT EGFR(CKD-EPI) >90 >60 Apr 24, 2024 07:36 AM [facility] BASIC METABOLIC PANEL+MG Specimen Type: PLASMA Comment: Critical Value Reported To: Cait Zamorano RN 8-27-24@[address] [place] [address]. Critical value report confirmed. Ordering Provider: AARON VICTOR Report Released Date/Time: Apr 23, 2024 05:30 PM Reporting Lab: [facility] [address] Performing Lab: [facility] [address] CREATININE 0.7 mg/dL 0.7-1.2 UREA NITROGEN 16 mg/dL 8-26 GLUCOSE 105 mg/dL H 70-100 SODIUM 138 mmol/L 136-145 POTASSIUM 2.3 mmol/L LL 3.5-5.1 CHLORIDE 98 mmol/L 98-107 CO2 29 mmol/L 22-29 CALCIUM 8.3 mg/dL L 8.4-10.2 MAGNESIUM 2.2 mg/dL 1.6-2.6 ANION GAP 11 mmol/L 5-15 .CREAT EGFR(CKD-EPI) >90 >60 Apr 24, 2024 07:35 AM [facility] CBC & DIFF Specimen Type: BLOOD Comment: Automated Differential Performed Ordering Provider: AARON VICTOR Report Released Date/Time: Apr 23, 2024 05:30 PM Reporting Lab: [facility] [address] Performing Lab: [facility] [address] WBC 10.49 10*3/uL 4.0-11.0 RBC 3.83 10*6/uL [...] 10*3/uL 0-0.1 Apr 23, 2024 01:20 PM [facility] LACTIC ACID Specimen Type: PLASMA No comment entered. Ordering Provider: AARON VICTOR Report Released Date/Time: Apr 23, 2024 12:05 PM Reporting Lab: [facility] [address] Performing Lab: [place] [phone] LACTIC ACID 1.5 mmol/L 0.5-2.2 Apr 23, 2024 01:20 PM [facility] ACT PART THROMBO TIME Specimen Type: PLASMA No comment entered. Ordering Provider: AARON VICTOR Report Released Date/Time: Apr 23, 2024 12:05 PM Reporting Lab: [facility] [address] Performing Lab: [facility] [address] APTT 29.3 s 25.1-36.5 Apr 23, 2024 01:20 PM [facility] PROTHROMBIN TIME/INR Specimen Type: PLASMA No comment entered. Ordering Provider: AARON VICTOR Report Released Date/Time: Apr 23, 2024 12:05 PM Reporting Lab: [facility] [address] Performing Lab: [facility] [address] .INR 1.2 H 0.8-1.1 .PT 14.5 s H 9.4-12.5 Apr 23, 2024 01:20 PM [facility] COMPREHENSIVE METABOLIC PANEL+MG Specimen Type: PLASMA No comment entered. Ordering Provider: AARON VICTOR Report Released Date/Time: Apr 23, 2024 12:05 PM Reporting Lab: [facility] [address] Performing Lab: [facility] [address] CREATININE 0.7 mg/dL 0.7-1.2 UREA NITROGEN 19 [...] >90 >60 Apr 23, 2024 01:20 PM [facility] CBC & DIFF Specimen Type: BLOOD Comment: Automated Differential Performed Ordering Provider: AARON VICTOR Report Released Date/Time: Apr 23, 2024 12:05 PM Reporting Lab: [facility] [address] Performing Lab: [facility] [address] WBC 12.50 10*3/uL H 4.0-11.0 RBC 4.07 [...] 10*3/uL 0-0.1 Apr 21, 2024 07:28 AM [facility] URINALYSIS Specimen Type: URINE No comment entered. Ordering Provider: ANANDA HUGGINS Report Released Date/Time: Apr 21, 2024 07:37 AM Reporting Lab: [facility] [address] Performing Lab: [facility] [address] URINE COLOR COLORLESS SPECIFIC GRAVITY 1.009 1.003-1.03 [...] 61 125/59 16 96 5 [facility] [facility] [facility] Social History: Smoking Status (Most [...] AM VA-TOBACCO QUIT 15 YRS OR MORE [facility] Tobacco Use History This section includes a history of the smoking, or tobacco-related health factors, that were collected on or before the date of the Encounter. The data comes from the [place] facility where the Encounter took place. Date/Time Smoking Status/Tobacco Use Comment F tiera May 06, 2023 11:30 AM OR-TOBACCO QUIT 15 YRS OR MORE [facility] Jun 04, 2022 09:00 AM VA-TOBACCO FORMER USER [facility] Jun 04, 2022 09:00 AM VA-TOBACCO QUIT 15 YRS OR MORE [facility] Jul 10, 2021 08:00 AM VA-TOBACCO FORMER USER [facility] Jul 10, 2021 08:00 AM VA-TOBACCO QUIT 5 TO < 15 YRS [facility] May 23, 2020 08:30 AM VA-TOBACCO FORMER USER [facility] May 23, 2020 08:30 AM VA-TOBACCO QUIT 5 TO < 15 YRS [facility] Mar 20, 2019 04:03 PM VA-TOBACCO FORMER USER [facility] Mar 20, 2019 04:03 PM VA-TOBACCO QUIT 5 TO < 15 YRS [facility] Mar 21, 2018 08:13 AM FORMER TOBACCO USER 7Y OR GREATE R [facility] Feb 24, 2017 09:24 AM FORMER TOBACCO USER 7Y OR GREATE R [facility] January 07, 2016 08:01 AM FORMER TOBACCO USE >1Y <7Y [facility] Feb 03, 2015 07:58 AM FORMER TOBACCO USE <1Y [facility] Feb 26, 2014 08:41 AM CURRENT TOBACCO USER [facility] May 13, 2011 01:45 PM CURRENT TOBACCO USER [facility] Advance Directives: All historical and current Section [...] Mar 23, 2016 CLINICAL WARNING [facility] Radiology Reports: +/- 30 days [...] facilities. Date/Time Radiology Report Provider Source May 11, 2024 12:39 PM IR FISTULOGRAM / S INOGRAM (P): FLACA WEAVER [id number] -1950 M Exm Date: MAY 11, 2024@12:39 Req Phys: PALMIRA POWELL Loc: [facility] C/R FOLLOW-UP CLINIC (Req' Img Loc: INTERVENTIONAL RADIOLOGY Service: [place] [address] (Case [id number] COMPLETE) IR INJECTION FOR SINOGRAM DIAGNOS(ANI Detailed) CPT:01509 Contrast Media : Non-ionic Iodinated Reason for Study: s/p drain placement for diverticular abscess- assess for drain (Case [id number] COMPLETE) IR FISTULOGRAM OR SINOGRAM (ANI Detailed) CPT:01311 Contrast Media : unspecified contrast media (Case [id number] COMPLETE) IR DRAINAGE CATHETER SUPPLY (ANI Detailed) CPT:C1729 Clinical History: IS NOT under investigation for COVID-19 or is COVID-19 negative s/p drain placement for diverticular abscess- assess for drain removal Contact number for responsible provider who can be reached for any questions or notifications of critical findings: [phone] Palmira Powell MD LAST CREATININE 0.7 (05/04/24) Report Status: Verified Date Reported: MAY 11, 2024 Date Verified: MAY 11, 2024 Cable Puller E-Sig:/ES/AMINTA ESCALONA MD Report: PROCEDURES Abdominal drain check CLINICAL HISTORY: Diverticular abscess COMPARISONS: 04/23/2024, 04/24/2024, 05/11/2024 STAFF RADIOLOGIST: Aminta Escalona MD Dose (Air Kerma): 9.2 mGy Fluoroscopy time: 0.3 minutes. Contrast: No intravenous contrast administered. Procedure: The existing abdominal percutaneous drainage catheter was examined fluoroscopically. The catheter was injected with contrast and images obtained demonstrating filling of sigmoid colon via suspected fistula. The drainage catheter was then left in place. Impression: 1. No focal abscess cavity however there is filling of the sigmoid colon consistent with fistula 2. Interventional Radiology follow-up in 2 weeks with sinogram in IR. Primary Interpreting Staff: AMINTA ESCALONA MD, INTERVENTIONAL RADIOLOGIST (Cable Puller) /AMINTA VELAZCO [facility] May 11, 2024 11:[address] (AP) ABDOMEN/PE LVIS (P): MEGFLACADARCI LOBO [id number] -1950 M Exm Date: MAY 11, 2024@11:40 Req Phys: PALMIRA POWELL Loc: [facility] C/R FOLLOW-UP CLINIC (Req' Img Loc: CT IMAGING Service: [place] [address] (Case [id number] COMPLETE) CT (AP) ABDOMEN/PELVIS W CONTRAST(CT Detailed) CPT:89488 Contrast Media : Non-ionic Iodinated Reason for Study: assess abscess and possible drain removal Clinical History: assess abscess and possible drain removal Per Joint Commission Standards, by signing this diagnostic imaging request the ordering provider confirms they have considered patients age and recent imaging history. Defer to radiologist for final CT protocol. Contact number for responsible provider who can be reached for any questions or notifications of critical findings: [phone] Palmira Powell MD LAST 3: Collection DT Specimen Test Name Result Units Ref Range 04/26/2024 05:30 PLASMA CREATININE 0.7 mg/dL 0.7 - 1.2 04/25/2024 17:10 PLASMA CREATININE 0.7 mg/dL 0.7 - 1.2 04/25/2024 05:30 PLASMA CREATININE 0.7 mg/dL 0.7 - 1.2 04/26/2024 05:30 PLASMA .CREAT EGFR(CKD-E >90 Ref: >=60 04/25/2024 17:10 PLASMA .CREAT EGFR(CKD-E >90 Ref: >=60 04/25/2024 05:30 PLASMA .CREAT EGFR(CKD-E >90 Ref: >=60 Allergies: ([facility]) TERAZOSIN (Mar 13, 2015) Report Status: Verified Date Reported: MAY 11, 2024 Date Verified: MAY 11, 2024 Cable Puller E-Sig:/ES/LISA PENDLETON MD Report: CT abdomen and pelvis with contrast 05/11/2024 History: Assess abscess and possible drain removal Comparison: CT 04/23/2024 Technique: CT of the abdomen and pelvis following contrast administration. IV contrast: 100 mL Omnipaque 350. Oral contrast: None. Axial and coronal reconstructions were obtained and reviewed. Dose: Total DLP: 528 mGy*cm Findings: Thin-walled air-filled cyst in the right lower lobe on series 4 image 27. Atelectatic changes at the lung bases. Distal esophageal wall thickening appears similar to prior exam. Small right pleural effusion, new from prior CT. Small pericardial effusion, similar to prior. Fluid attenuation hepatic cyst on series 4 image 33. Elongated right lobe of the liver. Low-attenuation focus in the right hepatic lobe on series 4 image 162, too small to characterize by CT, similar dating back to 08/09/2022, benign. Multiple splenules in the left upper quadrant. Cystic focus in the body/tail the pancreas on series 4 image 86 measuring 15 mm, this does not appear significantly changed from 05/05/2020. Left adrenal nodule measuring 15 mm, not significantly changed from 05/05/2020 compatible with a benign process, likely small adenoma. Benign-appearing low-attenuation thickening of the medial limb right adrenal gland, similar to previous. Gallbladder unremarkable. Chronic cortical defects in the right kidney such as on series 5 image 97, similar to previous examination. 3 mm right renal calyceal tip stone on series 4 image 200, not significantly changed. Prominent bilateral extrarenal pelves. No suspicious left renal lesion. Atheromatous plaque of the abdominal aorta. Heterogeneous plaque in the iliac arteries. The right common iliac artery is aneurysmal measuring 2 cm. The left common iliac artery is aneurysmal measuring 1.9 cm, this is similar to prior examination. Elongated appendix without evidence of acute appendicitis. No acute bowel obstruction is identified. Colonic diverticulosis. Interval decompression of gas and fluid containing collection noted between the inflamed sigmoid colon and the urinary bladder from comparison 04/23/2024, multiple linear tracts are demonstrated from the sigmoid colon/sigmoid diverticuli into this collection such as on series 4 image 312, no significant undrained component of this collection is identified. Gas within the urinary bladder suggests persistent colovesicular fistula. Urinary bladder wall appears thickened and mildly inflamed. Prostate gland is enlarged. Atherosclerotic plaque of the femoral arteries with heavy atheromatous plaque of the left common femoral artery on series 4 image 355 and right common femoral artery on series 4 image 372, similar to previous. Bones: Lucent foci in several ribs such as a left 8th rib on series 4 image 41 are not significantly changed from 05/05/2020 suggesting a benign. Postoperative changes of the lumbar spine. Degenerative changes of the spine, sacroiliac joints, hips and pubic symphysis. Impression: 1. Interval placement of a percutaneous drainage catheter into the pericolonic abscess/fistula with near-complete decompression of the largest component of the cavity. Multiple linear tracts from the adjacent colon into the collection with persistent gas in the urinary bladder suggests residual patent colovesical fistula. IR sinogram recommended prior to drain removal. Sigmoid diverticulitis overall appears improved from 04/23/2024. 2. Small right-sided pleural effusion, new from prior examination. Small pericardial effusion is similar to previous. 3. 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 Continued annual surveillance recommended with CT or MRI in one year. 4. Bilateral common iliac artery aneurysms measuring 2 cm on the right and 1.9 cm on the left, not significantly changed from prior. 5. Additional findings as described in the body of the report. Primary Interpreting Staff: LISA PENDLETON MD, RADIOLOGIST (Cable Puller) /JRT LISA PENDLETON [facility] Apr 24, 2024 02:13 PM ABSCESS DRAIN PLAC EMENT PERITONEAL (P): FLACA WEAVER [id number] -1950 M Exm Date: APR 24, 2024@14:13 Req Phys: ISRAELTAURUS KADY Amanda Loc: 3KS/04-24-2024@16:07 Img Loc: INTERVENTIONAL RADIOLOGY Service: PRIMARY [place] [address] (Case [id number] COMPLETE) IR PERITONEAL/RETROPERITONEAL PER(ANI Detailed) CPT:52090 Reason for Study: diverticular abscess Clinical History: IS NOT under investigation for COVID-19 or is COVID-19 negative 73yo M with hx of recurrent diverticulitis, transferred from [facility] 04/[address] 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 Found to have 2nd degree heart block, planning pacemaker placement Contact number for responsible provider who can be reached for any questions or notifications of critical findings: [phone] If ordering provider is a trainee, enter the name and contact information of the responsible staff physician. Palmira Powell MD LAST CREATININE 0.7 (04/23/24) Report Status: Verified Date Reported: APR 24, 2024 Date Verified: APR 24, 2024 Cable Puller E-Sig:/ES/SADIA DEE MD Report: PROCEDURES: Placement of [...] anesthesia. Using real-time CT fluoroscopy, a 5 Uruguayan Yueh catheter was advanced into the collection in the left lower quadrant. A wire was coiled in the collection. The tract into the collection was dilated to accommodate the 12 Uruguayan locking pigtail drainage catheter. The catheter was secured to the skin with monofilament suture and connected to JUAN bulb suction. Impression: Successful placement of a 12 Uruguayan locking pigtail drainage catheter in the left lower quadrant abscess. This catheter is connected to JUAN bulb suction with flushes, as ordered. I, SADIA DEE, have reviewed the images and report. Primary Interpreting Staff: SADIA DEE MD, RADIOLOGIST (Cable Puller) Primary Interpreting Resident: JEFFREY FLOWER MD, HOG DROPPER /SADIA SNYDER [facility] Apr 24, 2024 02:[address] NEEDLE PLACEMEN T (P): FLACA WEAVER [id number] -1950 M Exm Date: APR 24, 2024@14:11 Req Phys: TAURUS WOOD Loc: 3K04-24-2024@16:07 Im Loc: CT IMAGING Service: PRIMARY [place] [address] (Case [id number] COMPLETE) CT SCAN FOR NEEDLE PLACEMENT (CT Detailed) CPT:37899 Reason for Study: diverticular abscess Clinical History: Report Status: Verified Date Reported: APR 24, 2024 Date Verified: APR 24, 2024 Cable Puller E-Sig:/ES/SADIA DEE MD Report: PROCEDURES: Placement of [...] anesthesia. Using real-time CT fluoroscopy, a 5 Uruguayan Yueh catheter was advanced into the collection in the left lower quadrant. A wire was coiled in the collection. The tract into the collection was dilated to accommodate the 12 Uruguayan locking pigtail drainage catheter. The catheter was secured to the skin with monofilament suture and connected to JUAN bulb suction. Impression: Successful placement of a 12 Uruguayan locking pigtail drainage catheter in the left lower quadrant abscess. This catheter is connected to JUAN bulb suction with flushes, as ordered. I, SADIA DEE, have reviewed the images and report. Primary Interpreting Staff: SADIA DEE MD, RADIOLOGIST (Cable Puller) Primary Interpreting Resident: JEFFREY FLOWER MD, HOG DROPPER /PJB SADIA DEE [facility] Apr 23, 2024 06:36 AM [facility] CT ABDOMEN/ PELVIS: FLACA WEAVER [id number] -1950 M Ex Date: APR 23, 2024@06:36 Req Phys: MCKAY VICTOR [facility] Loc: 3K04-24-2024@10:25 Im Loc: OUTSOURCE CT Service: Unknown (Case [id number] COMPLETE) NON OR CT ABDOMEN/PELVIS (CT Detailed) CPT:82502 Reason for Study: OUTSIDE STUDY Clinical History: [...] Diagnostic Code: VERIFIED BY: / *ELECTRONICALLY FILED* [facility] Pathology Reports: +/- 30 days of the [...] AM LR MICROBIOLOGY RE PORT: Reporting Lab: [facility] [CLIA# [id number]] [place] [address] Accession [UID]: [id number] [[id number]] Received: Apr 21, 2024@08:16 Collection sample: URINE Collection date: Apr 21, 2024 07:28 Provider: ANANDA HUGGINS Comment on specimen: RECEIVED IN STERILE CUP Test(s) ordered: CULTURE & SUSCEPTIBILITY...... completed: Apr 22, 2024 * BACTERIOLOGY FINAL REPORT => Apr 22, 2024 08:38 TECH CODE: [id number] CULTURE RESULTS: NO GROWTH 24 HOURS Bacteriology Remark(s): THIS REPORT IS FINAL =--=--=--=--=--=--=--=--=--=--=--=- -=--=--=--=--=--=--=--=--=--=--=--= --=--=-- Performing Laboratory: Bacteriology Report Performed By: [facility] [CLIA# [id number]] [place] [address] [facility] Encounter Notes: All associated encounter notes This [...] 08:54 04/21/2024 ADDENDUM STATUS: COMPLETED Correction this feature writer went to give pt his discharge instruction and remove his wrist band and the pt had already left the department. No logicare given. /alexi/ ABRAN MADRIGAL RN REGISTERED NURSE Signed: 04/21/2024 09:00 ABRAN MOJICA [facility] Apr 21, 2024 08:43 AM EMERGENCY DEPT [...] NEAREST EMERGENCY ROOM /es/ NOE ROJAS MD [employer] HANGER HELPER, ED/[facility] Signed: 04/21/2024 08:43 NOE ROJAS [facility] Apr 21, 2024 08:03 AM PHYSICIAN EMERGENC [...] . No additional CRC surveillance recommended by merchandising consultant. 9. Decreased vitamin D - 02.24.2017 [...] - By 02.13.[address] 03.14.2020 OSH(ED [place], [place]): Pt. Declined Admission. 03.14.2020 CT with Mild Sigmoid diverticulitis. 04.23.2020 ED([facility]): Declined admission. 17. 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 18. Ex-tobacco user 19. Impaired Fasting Glucose (SCT [id number]) - 02.26.2014 A1c 5.8%. 20. Adrenal mass [...] recommended. 24. Hiatal hernia 25. Shoulder Pain ([facility] [id number]) 26. Trigger finger 27. [facility]: Dr. Cathi Simeon, [place] [address]. Medications Active Outpatient Medications (excluding Supplies): Outpatient [...] department. Disposition: Discharge home MD JEEVAN Martins /alexi/ NOE ROJAS MD [employer] HANG[employer] HELPER, ED/[facility] Signed: 04/21/2024 08:45 Receipt Acknowledged By: 04/23/2024 09:11 /alexi/ Jatinder Cabrera MD Physician NOE ROJAS [facility] Apr 21, 2024 07:56 AM NURSING EMERGENCY [...] ABUSE/NEGLECT: REVIEW OF SYSTEM-FOCUSED ASSESSMENT Neurological: Alert Hollister Coma Scale: Date and Time Preformed: Mar@08:02 [...] REGISTERED NURSE Signed: 04/21/2024 08:05 ABRAN MOJICA [facility] Apr 21, 2024 07:37 AM NURSING EMERGENCY [...] DAY FOR BLOOD PRESSURE Current Problems: Hypertension ([facility] [id number]) 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[facility] 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) Impulse control disorder ([facility] [id number]) Cervicalgia ([facility] [id number]) Sleep apnea ([facility] [id number]) Coronary artery disease ([facility] 44852368) Hyperlipidemia ([facility] 38370191) Colonoscopy normal ([facility] 213341640) Decreased vitamin D ([facility] [id number]) Aneurysm of common iliac artery ([facility] [id number]) Pain of both knees ([facility] [id number])History of surgery ([facility] [id number]) Wrist pain ([facility] 68384800) Carpal tunnel syndrome ([facility] 85475627) Steatosis of liver ([facility] 785100889) Diverticular disease ([facility] 553631336) Infarction of kidney ([facility] [id number]) Ex-tobacco user ([facility] [id number]) Impaired Fasting Glucose ([facility] [id number])Adrenal mass ([facility] [id number]) Abdominal aortic aneurysm (SCT [id number] cyst ([facility] [id number]) Multiple nodules of lung ([facility] 888130165)Hiatal hernia ([facility] 30476843) Shoulder Pain ([facility] 09444654) Trigger finger ([facility] [id number]) [facility] (ICD-10-CM R69.) Identification of Seniors at Risk (ISAR):* Defer screen <75 Suicide Screen: [place] Suicide Severity Rating Scale (C-SSRS) screener 1. [...] responses to other questions. /alexi/ TAINA RIGGS KILN DOOR BUILDER RN Signed: 04/21/2024 07:39 TAINA RIGGS [facility]
--- OUTSIDE RECORDS SUMMARY | 2024-07-16 07:06 | XMS_ITS | Encounter Summary ---
Author Name [facility] [place] [facility] [place] Address [address] [place] [address] Care Team Providers Care Transformation Architect Name Role Phone JATINDER CABRERA Primary [...] Policy Weinstein's Name Patient's Relationship to Policy [place] MEDICARE (WNR) MEDICARE (M) PART A Sep 29, 2016 PART A [id number] [phone] JUDY WEAVER PATIENT Selected Encounter This section includes the information on record at [place] for the Encounter. Date/Time Encounter Type Encounter Description Reason Provider Source Apr 21, 2024 07:16 AM Outpatient Encounter TELEPHONE TRIAGE [facility] Encounter Template Text not used by [place] [...] 08:00 AM AM[place]ORY [place] NONE [place] [facility] Apr 27, 2024 02:30 PM AMBULATORY - NONE [place] [facility] May 02, 2024 10:00 AM AMBUL[place]ORY - [place]GERY [place] [facility] May 04, 2024 09:00 AM AMBULATORY - NONE [place] [facility] May 07, 2024 08:45 AM AMBUL[place]ORY [place]ICINE [place] [facility] May 08, 2024 02:00 PM AMBULATORY - NONE [place] [facility] May 09, 2024 07:30 AM [place]BUL[place]ORY - [place]GERY [place] [facility] May 11, 2024 01:00 PM AMBULATORY - NONE [place] [facility] May 11, 2024 03:30 PM AMBULATORY - NONE [place] [facility] May 15, 2024 08:30 AM [place]IC[place] [facility] May 16, 2024 07:45 AM AMBULATORY - SURGERY [place] [facility] May 22, 2024 07:30 AM AMBULATORY - NONE [place] [facility] May 22, 2024 05:30 PM AMBULATORY - NONE [place] [facility] May 25, 2024 08:22 AM AMBULATORY - NONE [place] [facility] May 25, 2024 09:00 AM AMBULATORY - NONE [place] [facility] May 28, 2024 08:15 AM AMBUL[place]ORY [place]GERY [place] [facility] Jun 04, 2024 11:30 AM AMBULATORY - NONE [place] [facility] Jun 08, 2024 11:00 AM AMBUL[place]ORY [place]GERY [place] [facility] Jun 08, 2024 12:45 PM AMBULATORY - NONE [place] [facility] Jun 08, 2024 01:15 PM AMBULATORY - MEDICINE [facility] Active, Pending, and Scheduled Orders [...] SUSCEPTIBILITY ~Culture sample from JUAN drain output [facility] Apr 26, 2024 10:10 AM Laboratory - Microbiology Order GRAM STAIN WOUND OTHER WC ONCE ~For Test: GRAM STAIN ~JUAN drain culture/gram stain [facility] May 28, 2024 12:00 AM Laboratory - Blood Bank Order TYPE & SCREEN - LAB BLOOD SP [facility] Lab Results: +/- [...] Range Comment May 21, 2024 06:59 AM [facility] BASIC METABOLIC PANEL+MG Specimen Type: PLASMA No comment entered. Ordering Provider: GOLDIE CABRERA Report Released Date/Time: May 15, 2024 08:34 AM Reporting Lab: [facility] [address] Performing Lab: [facility] [address] CREATININE 0.9 mg/dL 0.7-1.2 UREA NITROGEN 18 mg/dL 8-26 GLUCOSE 126 mg/dL H 70-100 SODIUM 138 mmol/L 136-145 POTASSIUM 4.0 mmol/L 3.5-5.1 CHLORIDE 105 mmol/L 98-107 CO2 24 mmol/L 22-29 CALCIUM 9.8 mg/dL 8.4-10.2 MAGNESIUM 2.0 mg/dL 1.6-2.6 ANION GAP 9 mmol/L 5-15 .CREAT EGFR(CKD-EPI) >90 >60 May 04, 2024 08:36 AM [facility] BASIC METABOLIC PANEL+MG Specimen Type: PLASMA No comment entered. Ordering Provider: GOLDIE CABRERA Report Released Date/Time: May 03, 2024 12:52 PM Reporting Lab: [facility] [address] Performing Lab: [facility] [address] CREATININE 0.7 mg/dL 0.7-1.2 UREA NITROGEN 13 mg/dL 8-26 GLUCOSE 91 mg/dL 70-100 SODIUM 141 mmol/L 136-145 POTASSIUM 3.6 mmol/L 3.5-5.1 CHLORIDE 109 mmol/L H 98-107 CO2 25 mmol/L 22-29 CALCIUM 8.9 mg/dL 8.4-10.2 MAGNESIUM 2.0 mg/dL 1.6-2.6 ANION GAP 7 mmol/L 5-15 .CREAT EGFR(CKD-EPI) >90 >60 Apr 26, 2024 07:16 AM [facility] BASIC METABOLIC PANEL+MG Specimen Type: PLASMA No comment entered. Ordering Provider: JONO RANDOLPH Report Released Date/Time: Apr 25, 2024 02:50 PM Reporting Lab: [facility] [address] Performing Lab: [facility] [address] CREATININE 0.7 mg/dL 0.7-1.2 UREA NITROGEN 15 mg/dL 8-26 GLUCOSE 106 mg/dL H 70-100 SODIUM 139 mmol/L 136-145 POTASSIUM 3.4 mmol/L L 3.5-5.1 CHLORIDE 105 mmol/L 98-107 CO2 25 mmol/L 22-29 CALCIUM 8.5 mg/dL 8.4-10.2 MAGNESIUM 2.2 mg/dL 1.6-2.6 ANION GAP 9 mmol/L 5-15 .CREAT EGFR(CKD-EPI) >90 >60 Apr 25, 2024 05:10 PM [facility] BASIC METABOLIC PANEL+MG Specimen Type: PLASMA No comment entered. Ordering Provider: GIOVANNI ADLER Report Released Date/Time: Apr 25, 2024 05:04 PM Reporting Lab: [facility] [address] Performing Lab: [facility] [address] CREATININE 0.7 mg/dL 0.7-1.2 UREA NITROGEN 15 mg/dL 8-26 GLUCOSE 104 mg/dL H 70-100 SODIUM 139 mmol/L 136-145 POTASSIUM 3.2 mmol/L L 3.5-5.1 CHLORIDE 103 mmol/L 98-107 CO2 28 mmol/L 22-29 CALCIUM 8.5 mg/dL 8.4-10.2 MAGNESIUM 2.2 mg/dL 1.6-2.6 ANION GAP 8 mmol/L 5-15 .CREAT EGFR(CKD-EPI) >90 >60 Apr 25, 2024 07:46 AM [facility] BASIC METABOLIC PANEL+MG Specimen Type: PLASMA No comment entered. Ordering Provider: GIOVANNI ADLER Report Released Date/Time: Apr 24, 2024 12:37 PM Reporting Lab: [facility] [address] Performing Lab: [facility] [address] CREATININE 0.7 mg/dL 0.7-1.2 UREA NITROGEN 14 mg/dL 8-26 GLUCOSE 127 mg/dL H 70-100 SODIUM 139 mmol/L 136-145 POTASSIUM 2.9 mmol/L L 3.5-5.1 CHLORIDE 101 mmol/L 98-107 CO2 29 mmol/L 22-29 CALCIUM 8.7 mg/dL 8.4-10.2 MAGNESIUM 2.3 mg/dL 1.6-2.6 ANION GAP 9 mmol/L 5-15 .CREAT EGFR(CKD-EPI) >90 >60 Apr 24, 2024 04:42 PM [facility] BASIC METABOLIC PANEL+MG Specimen Type: PLASMA No comment entered. Ordering Provider: GIOVANNI ADLER Report Released Date/Time: Apr 24, 2024 12:37 PM Reporting Lab: [facility] [address] Performing Lab: [facility] [address] CREATININE 0.7 mg/dL 0.7-1.2 UREA NITROGEN 16 mg/dL 8-26 GLUCOSE 97 mg/dL 70-100 SODIUM 138 mmol/L 136-145 POTASSIUM 2.7 mmol/L L 3.5-5.1 CHLORIDE 99 mmol/L 98-107 CO2 30 mmol/L H 22-29 CALCIUM 8.4 mg/dL 8.4-10.2 MAGNESIUM 2.1 mg/dL 1.6-2.6 ANION GAP 9 mmol/L 5-15 .CREAT EGFR(CKD-EPI) >90 >60 Apr 24, 2024 07:36 AM [facility] BASIC METABOLIC PANEL+MG Specimen Type: PLASMA Comment: Critical Value Reported To: Cait Zamorano RN 8-27-24@[address] [place] [address]. Critical value report confirmed. Ordering Provider: AARON VICTOR Report Released Date/Time: Apr 23, 2024 05:30 PM Reporting Lab: [facility] [address] Performing Lab: [facility] [address] CREATININE 0.7 mg/dL 0.7-1.2 UREA NITROGEN 16 mg/dL 8-26 GLUCOSE 105 mg/dL H 70-100 SODIUM 138 mmol/L 136-145 POTASSIUM 2.3 mmol/L LL 3.5-5.1 CHLORIDE 98 mmol/L 98-107 CO2 29 mmol/L 22-29 CALCIUM 8.3 mg/dL L 8.4-10.2 MAGNESIUM 2.2 mg/dL 1.6-2.6 ANION GAP 11 mmol/L 5-15 .CREAT EGFR(CKD-EPI) >90 >60 Apr 24, 2024 07:35 AM [facility] CBC & DIFF Specimen Type: BLOOD Comment: Automated Differential Performed Ordering Provider: AARON VICTOR Report Released Date/Time: Apr 23, 2024 05:30 PM Reporting Lab: [facility] [address] Performing Lab: [facility] [address] WBC 10.49 10*3/uL 4.0-11.0 RBC 3.83 10*6/uL [...] 10*3/uL 0-0.1 Apr 23, 2024 01:20 PM [facility] LACTIC ACID Specimen Type: PLASMA No comment entered. Ordering Provider: AARON VICTOR Report Released Date/Time: Apr 23, 2024 12:05 PM Reporting Lab: [facility] [address] Performing Lab: [facility] [address] LACTIC ACID 1.5 mmol/L 0.5-2.2 Apr 23, 2024 01:20 PM [facility] PROTHROMBIN TIME/INR Specimen Type: PLASMA No comment entered. Ordering Provider: AARON VICTOR Report Released Date/Time: Apr 23, 2024 12:05 PM Reporting Lab: [facility] [address] Performing Lab: [facility] [address] .INR 1.2 H 0.8-1.1 .PT 14.5 s H 9.4-12.5 Apr 23, 2024 01:20 PM [facility] ACT PART THROMBO TIME Specimen Type: PLASMA No comment entered. Ordering Provider: AARON VICTOR Report Released Date/Time: Apr 23, 2024 12:05 PM Reporting Lab: [facility] [address] Performing Lab: [facility] [address] APTT 29.3 s 25.1-36.5 Apr 23, 2024 01:20 PM [facility] CBC & DIFF Specimen Type: BLOOD Comment: Automated Differential Performed Ordering Provider: AARON VICTOR Report Released Date/Time: Apr 23, 2024 12:05 PM Reporting Lab: [facility] [address] Performing Lab: [facility] [address] WBC 12.50 10*3/uL H 4.0-11.0 RBC 4.07 [...] ABS IMMATURE GRAN 0.09 10*3/uL 0-0.1 Apr 23, 2024 01:20 PM [facility] COMPREHENSIVE METABOLIC PANEL+MG Specimen Type: PLASMA No comment entered. Ordering Provider: AARON VICTOR Report Released Date/Time: Apr 23, 2024 12:05 PM Reporting Lab: [facility] [address] Performing Lab: [facility] [address] CREATININE 0.7 mg/dL 0.7-1.2 UREA NITROGEN 19 [...] U/L 11-34 .CREAT EGFR(CKD-EPI) >90 >60 Apr 21, 2024 07:28 AM [facility] URINALYSIS Specimen Type: URINE No comment entered. Ordering Provider: ANANDA HUGGINS Report Released Date/Time: Apr 21, 2024 07:37 AM Reporting Lab: [facility] [address] Performing Lab: [facility] [address] URINE COLOR COLORLESS SPECIFIC GRAVITY 1.009 1.003-1.03 [...] AM 99.6 61 125/59 16 96 5 [facility] Social History: Smoking Status [...] 06, 2023 11:30 AM VA-TOBACCO FORMER USER [facility] Tobacco Use History This section includes a history of the smoking, or tobacco-related health factors, that were collected on or before the date of the Encounter. The data comes from the [place] facility where the Encounter took place. Date/Time Smoking Status/Tobacco Use Comment F acility May 06, 2023 11:30 AM VA-TOBACCO QUIT 15 YRS OR MORE [facility] Jun 04, 2022 09:00 AM VA-TOBACCO FORMER USER [facility] Jun 04, 2022 09:00 AM VA-TOBACCO QUIT 15 YRS OR MORE [facility] Jul 10, 2021 08:00 AM VA-TOBACCO FORMER USER [facility] Jul 10, 2021 08:00 AM VA-TOBACCO QUIT 5 TO < 15 YRS [facility] May 23, 2020 08:30 AM VA-TOBACCO FORMER USER [facility] May 23, 2020 08:30 AM VA-TOBACCO QUIT 5 TO < 15 YRS [facility] Mar 20, 2019 04:03 PM VA-TOBACCO FORMER USER [facility] Mar 20, 2019 04:03 PM VA-TOBACCO QUIT 5 TO < 15 YRS [facility] Mar 21, 2018 08:13 AM FORMER TOBACCO USER 7Y OR GREATE R [facility] Feb 24, 2017 09:24 AM FORMER TOBACCO USER 7Y OR GREATE R [facility] January 07, 2016 08:01 AM FORMER TOBACCO USE >1Y <7Y [facility] Feb 03, 2015 07:58 AM FORMER TOBACCO USE <1Y [facility] Feb 26, 2014 08:41 AM CURRENT TOBACCO USER [facility] May 13, 2011 01:45 PM CURRENT TOBACCO USER [facility] Advance Directives: All historical and [...] comes from all [facility]. Date Advance Directives Provider Source Mar 23, 2016 CLINICAL WARNING [facility] Radiology Reports: +/- 30 days [...] FISTULOGRAM / S INOGRAM (P): FLACA WEAVER [id number] -1950 Exm Date: MAY 11, 2024@12:39 Req Phys: PALMIRA POWELL Loc: [facility] C/R FOLLOW-UP CLINIC (Req' Img Loc: INTERVENTIONAL RADIOLOGY Service: [place] [address] (Case [id number] COMPLETE) IR INJECTION FOR SINOGRAM DIAGNOS(ANI Detailed) CPT:27362 Contrast Media : Non-ionic Iodinated Reason for Study: s/p drain placement for diverticular abscess- assess for drain (Case [id number] COMPLETE) IR FISTULOGRAM OR SINOGRAM (ANI Detailed) CPT:46078 Contrast Media : unspecified contrast media (Case [id number] COMPLETE) IR DRAINAGE CATHETER SUPPLY (ANI Detailed) CPT:C1729 Clinical History: [place] IS NOT under investigation for COVID-19 or is COVID-19 negative s/p drain placement for diverticular abscess- assess for drain removal Contact number for responsible provider who can be reached for any questions or notifications of critical findings: [phone] Palmira Powell MD LAST CREATININE 0.7 (05/04/24) Report Status: Verified Date Reported: MAY 11, 2024 Date Verified: MAY 11, 2024 Burlap Roll Coverer E-Sig:/ES/AMINTA ESCALONA MD Report: PROCEDURES Abdominal drain [...] Interpreting Staff: AMINTA ESCALONA MD, INTERVENTIONAL RADIOLOGIST (Burlap Roll Coverer) /AMINTA VELAZCO [facility] May 11, 2024 11:[address] (AP) ABDOMEN/PE LVIS (P): MEGFLACA YAMIL [id number] -1950 M Exm Date: MAY 11, 2024@11:40 Req Phys: PALMIRA POWELL Loc: [facility] C/R FOLLOW-UP CLINIC (Req' Img Loc: CT IMAGING Service: [place] [address] (Case [id number] COMPLETE) CT (AP) ABDOMEN/PELVIS W CONTRAST(CT Detailed) CPT:36465 Contrast Media : Non-ionic Iodinated Reason for [...] any questions or notifications of critical findings: [phone] Palmira Powell MD LAST 3: Collection DT [...] PLASMA .CREAT EGFR(CKD-E >90 Ref: >=60 Allergies: ([place] only) TERAZOSIN (Mar 13, 2015) Report Status: Verified Date Reported: MAY 11, 2024 Date Verified: MAY 11, 2024 Burlap Roll Coverer E-Sig:/ES/LISA PENDLETON MD Report: CT abdomen and [...] Primary Interpreting Staff: LISA PENDLETON MD, RADIOLOGIST (Burlap Roll Coverer) /JRT LISA PENDLETON [facility] Apr 24, 2024 02:13 PM ABSCESS DRAIN PLAC EMENT PERITONEAL (P): FLACA WEAVER [id number] -1950 M Exm Date: APR 24, 2024@14:13 Req Phys: TAURUS WOOD Amanda Loc: 3KS/04-24-2024@16:07 Img Loc: INTERVENTIONAL RADIOLOGY Service: PRIMARY CARE [place] [address] (Case [id number] COMPLETE) IR PERITONEAL/RETROPERITONEAL PER(ANI Detailed) CPT:35015 Reason for Study: diverticular abscess Clinical History: IS NOT under investigation for COVID-19 or is COVID-19 negative 73yo M with hx of recurrent diverticulitis, transferred from [facility] 04/[address] 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 Palmira Powell MD LAST CREATININE 0.7 (04/23/24) Report Status: Verified Date Reported: APR 24, 2024 Date Verified: APR 24, 2024 Burlap Roll Coverer E-Sig:/ES/SADIA DEE MD Report: PROCEDURES: Placement of [...] anesthesia. Using real-time CT fluoroscopy, a 5 Montserratian Yueh catheter was advanced into the collection in the left lower quadrant. A wire was coiled in the collection. The tract into the collection was dilated to accommodate the 12 Montserratian locking pigtail drainage catheter. The catheter was secured to the skin with monofilament suture and connected to JUAN bulb suction. Impression: Successful placement of a 12 Montserratian locking pigtail drainage catheter in the left lower quadrant abscess. This catheter is connected to JUAN bulb suction with flushes, as ordered. I, SADIA DEE, have reviewed the images and report. Primary Interpreting Staff: SADIA DEE MD, RADIOLOGIST (Burlap Roll Coverer) Primary Interpreting Resident: JEFFREY FLOWER MD, JD EDWARDS CONSULTANT /SADIA SNYDER [facility] Apr 24, 2024 02:[address] NEEDLE PLACEMEN T (P): FLACA WEAVER [id number] -1950 M Exm Date: APR 24, 2024@14:11 Req Phys: TAURUS WOOD Amanda Loc: 3K04-24-2024@16:07 Img Loc: CT IMAGING Service: PRIMARY [place]ARE [place] [address] (Case [id number] COMPLETE) CT SCAN FOR NEEDLE PLACEMENT (CT Detailed) CPT:33787 Reason for Study: diverticular abscess Clinical History: Report Status: Verified Date Reported: APR 24, 2024 Date Verified: APR 24, 2024 Burlap Roll Coverer E-Sig:/ES/SADIA DEE MD Report: PROCEDURES: Placement of [...] anesthesia. Using real-time CT fluoroscopy, a 5 Montserratian Yueh catheter was advanced into the collection in the left lower quadrant. A wire was coiled in the collection. The tract into the collection was dilated to accommodate the 12 Montserratian locking pigtail drainage catheter. The catheter was secured to the skin with monofilament suture and connected to JUAN bulb suction. Impression: Successful placement of a 12 Montserratian locking pigtail drainage catheter in the left lower quadrant abscess. This catheter is connected to JUAN bulb suction with flushes, as ordered. I, SADIA DEE, have reviewed the images and report. Primary Interpreting Staff: SADIA DEE MD, RADIOLOGIST (Burlap Roll Coverer) Primary Interpreting Resident: JEFFREY FLOWER MD, JD EDWARDS CONSULTANT /SADIA SNYDER [facility] Apr 23, 2024 06:[address] [place] [address] ABDOMEN/ PELVIS: FLACA WEAVER [id number] -1950 M Exm Date: APR 23, 2024@06:36 Req Phys: MCKAY VICTOR [facility] Loc: 04-24-2024@10:25 [facility] Loc: OUTSOURCE CT Service: Unknown (Case [id number] COMPLETE) NON [place] CT ABDOMEN/PELVIS (CT Detailed) CPT:74670 Reason for Study: OUTSIDE STUDY Clinical History: [...] Diagnostic Code: VERIFIED BY: / *ELECTRONICALLY FILED* [facility] Pathology Reports: +/- 30 days [...] AM LR MICROBIOLOGY RE PORT: Reporting Lab: [facility] [CLIA# [id number]] [place] [address] Accession [UID]: [id number] [[id number]] Received: Apr 21, 2024@08:16 Collection sample: URINE Collection date: Apr 21, 2024 07:28 Provider: ANANDA HUGGINS Comment on specimen: RECEIVED IN STERILE CUP Test(s) ordered: CULTURE & SUSCEPTIBILITY...... completed: Apr 22, 2024 * BACTERIOLOGY FINAL REPORT => Apr 22, 2024 08:38 TECH CODE: [id number] CULTURE RESULTS: NO GROWTH 24 HOURS Bacteriology Remark(s): THIS REPORT IS FINAL =--=--=--=--=--=--=--=--=--=--=--=- -=--=--=--=--=--=--=--=--=--=--=--= --=--=-- Performing Laboratory: Bacteriology Report Performed By: [facility] [CLIA# [id number]] [place] [address] [facility] Encounter Notes: All associated encounter [...] Patient Name: FLACA WEAVER Patient Primary [address]: [address] [place] [id number] Patient Primary Phone: [phone] Patient : 1950 Patient Age: 73 Call Back Number: [phone] Caller/Recipient Relation to Patient: Self Emergency Contact: NIMO AYANA Triage Summary Conducted triage/discussed symptoms Pain Score: 10 (Severe Pain) Utilized the Triage Tool: Yes Chief Complaint: Urinary Retention System WHEN: Now Nurse's Recommendation / WHEN: Now System WHERE: Emergency department Nurse's Recommendation / WHERE: ED [place] Patient Disposition Patient/Caregiver agrees to plan of care: Yes Patient WHERE: ED Other Patient WHEN: Now Nursing Plan and Disposition Referred patient to higher level of care Instructed to go to Emergency Room (ER) Advised of Financial Disclaimer: Patient advised that recommendation for care provided during the call does not constitute an approval or authorization for payment by the [place] or its staff. Patient advised to report a community ED visit to the [facility] Office of Community Care at within 72 hours. Nurse Summary Nurse Summary: Patient called in with complaints of urinary retention for the past 3 days now, pain level 10/10. Triage calls for ER now. Patient stated that he will have someone take him to the [place] ER now. Clinical Contact Center Codes Clinic/Location: 3 [facility] PHONE CCC RN Decision Support System Output: Triage Complete Triage Date: 04/21/2024, 07:01 AM Triage Note: Decision Support Tool Used: [employer] Phone Triage Sat, 21 Apr 2024 10:58:[address] [facility] Demographics 73 y/o Male Results CC: Urinary Retention Software suggested: Now Software suggested follow-up location: Emergency department Values and Measures Duration of CC: 3 Days Positive Responses HPI: bladder feels full HPI: bladder pain, moderate to severe HPI: incomplete bladder emptying [place] Education Verbal Education Provided: Based on your [...] transportation. IMPORTANT: This note was created by [facility] Clinical Contact Center staff. Please do not alert the staff member by adding them as a signer for future communications. Alerts are not monitored by this user. /alexi/ SHEKHAR [facility] MSN,BSN,RN Signed: 04/21/2024 06:16 Receipt Acknowledged By: 04/23/2024 09:14 /es/ Jatinder Cabrera MD Physician 04/23/2024 08:20 /es/ GUERITA AGUILA, RN REGISTERED NURSE SHE[facility]
[2024-07-16 07:07] LABS: Creatinine* 2.9 mg/dL (0.5-1.5); Estimated Glomerular Filt Rate 22 ml/min
--- OUTSIDE RECORDS SUMMARY | 2024-07-16 07:07 | XMS_ITS | Encounter Summary ---
Author Name [facility] [place] [facility] [place] Address [address] [place] [address] Care Team Providers Care Wire Drawing Setter Name Role Phone JATINDER CABRERA Primary [...] PART A Sep 29, 2016 PART A [id number] [phone] JUDY WEAVER PATIENT Selected Encounter This section includes the information on record at [place] for the Encounter. Date/Time Encounter Type Encounter Description Reason Provider Source Apr 23, 2024 04:44 AM Outpatient Encounter TELEPHONE TRIAGE LEILANI ARAMBULA Alex Encounter Template Text not used by [place] Plan of Treatment: Future Appointments (+ 6 months) and Future Tests (+/- 45 days) The Plan of Treatment section includes future care activities for the patient from all [place] treatmentfacilities. This section includes future appointments and future orders which are active, pending or scheduled. Future Appointments This section includes appointments that were scheduled to occur 6 months from the date of the Encounter, up to a maximum of 20 appointments. The data comes from all [place] treatment facilities. Appointment Date/Time Appointment Type Appointme nt Facility Name Apr 27, 2024 02:30 PM AMBULATORY - NONE [facility] May 02, 2024 10:00 AM AMBULATORY - SURGERY [facility] May 04, 2024 09:00 AM AMBULATORY - NONE [facility] May 07, 2024 08:45 AM AMBULATORY - MEDICINE [facility] May 08, 2024 02:00 PM AMBULATORY - NONE [facility] May 09, 2024 07:30 AM AMBULATORY - SURGERY [facility] May 11, 2024 01:00 PM AMBULATORY - NONE [facility] May 11, 2024 03:30 PM AMBULATORY - NONE [facility] May 15, 2024 08:30 AM [facility] [place]ICINE [facility] May 16, 2024 07:45 AM AMBULATORY - SURGERY [facility] May 22, 2024 07:30 AM AMBULATORY - NONE [facility] May 22, 2024 05:30 PM AMBULATORY - NONE [facility] May 25, 2024 08:22 AM AMBULATORY - NONE [facility] May 25, 2024 09:00 AM AMBULATORY - NONE [facility] May 28, 2024 08:15 AM AMBULATORY - SURGERY [facility] Jun 04, 2024 11:30 AM AMBULATORY - NONE [facility] Jun 08, 2024 11:00 AM AMBULATORY - SURGERY [facility] Jun 08, 2024 12:45 PM AMBULATORY - NONE [facility] Jun 08, 2024 01:15 PM [facility]BUL[facility]ORY - MEDICINE [facility] Jun 08, 2024 01:45 PM AMB[facility]ORY - SURGERY [facility] Active, Pending, and Scheduled Orders This section includes a listing of several types of active, pending, and scheduled orders, including clinic medications orders, diagnostic test orders, procedure orders and consult orders; where the start date of the order is 45 days before the date of the Encounter or 45 days after the date of theEncounter. The data comes from all [place] treatment facilities. Test Date/Time Test Type Test [...] ~JUAN drain culture/gram stain [facility] May 28, 2024 12:00 AM Laboratory - Blood Bank Order TYPE & SCREEN - LAB BLOOD SP [facility] Lab Results: +/- 30 days of the encounter This section includes the Chemistry and Hematology Lab Results on record with [place] for the patient. Radiology Reports and Pathology Reports are provided separately, in subsequent sections. Lab Results This section contains the Chemistry/Hematology Results that were resulted 30 days before or 30 daysafter the date of the Encounter. Date/Time Source Result Type Result - Unit Interpretation Reference Range Comment May 21, 2024 06:59 AM [facility] BASIC METABOLIC PANEL+MG Specimen Type: PLASMA No comment entered. Ordering Provider: GOLDIE CABRERA Report Released Date/Time: May 15, 2024 08:34 AM Reporting Lab: [facility] [address] Performing Lab: [facility] [address] CREATININE 0.9 mg/dL 0.7-1.2 UREA NITROGEN 18 mg/dL 8-26 GLUCOSE 126 mg/dL H 70-100 SODIUM 138 mmol/L 136-145 POTASSIUM 4.0 mmol/L 3.5-5.1 CHLORIDE 105 mmol/L 98-107 CO2 24 mmol/L 22-29 CALCIUM 9.8 mg/dL 8.4-10.2 MAGNESIUM 2.0 mg/dL 1.6-2.6 ANION GAP 9 mmol/L 5-15 .CREAT EGFR(CKD-EPI) >90 >60 May 04, 2024 08:36 AM [facility] BASIC METABOLIC PANEL+MG Specimen Type: PLASMA No comment entered. Ordering Provider: GOLDIE CABRERA Report Released Date/Time: May 03, 2024 12:52 PM Reporting Lab: [facility] [address] Performing Lab: [facility] [address] CREATININE 0.7 mg/dL 0.7-1.2 UREA NITROGEN 13 mg/dL 8-26 GLUCOSE 91 mg/dL 70-100 SODIUM 141 mmol/L 136-145 POTASSIUM 3.6 mmol/L 3.5-5.1 CHLORIDE 109 mmol/L H 98-107 CO2 25 mmol/L 22-29 CALCIUM 8.9 mg/dL 8.4-10.2 MAGNESIUM 2.0 mg/dL 1.6-2.6 ANION GAP 7 mmol/L 5-15 .CREAT EGFR(CKD-EPI) >90 >60 Apr 26, 2024 07:16 AM [facility] BASIC METABOLIC PANEL+MG Specimen Type: PLASMA No comment entered. Ordering Provider: JONO RANDOLHP Report Released Date/Time: Apr 25, 2024 02:50 PM Reporting Lab: [facility] [address] Performing Lab: [facility] [address] CREATININE 0.7 mg/dL 0.7-1.2 UREA NITROGEN 15 [...] 2024 05:04 PM Reporting Lab: [facility] [address] Performing Lab: [facility] [address] CREATININE 0.7 mg/dL 0.7-1.2 UREA NITROGEN 15 [...] 2024 12:37 PM Reporting Lab: [facility] [address] Performing Lab: [facility] [address] CREATININE 0.7 mg/dL 0.7-1.2 UREA NITROGEN 14 [...] 2024 12:37 PM Reporting Lab: [facility] [address] Performing Lab: [facility] [address] CREATININE 0.7 mg/dL 0.7-1.2 UREA NITROGEN 16 [...] Critical Value Reported To: Cait Zamorano RN 8-27-24@[address] [place] [address]. Critical value report confirmed. Ordering Provider: AARON VICTOR Report Released Date/Time: Apr 23, 2024 05:30 PM Reporting Lab: [facility] [address] Performing Lab: [facility] [address] CREATININE 0.7 mg/dL 0.7-1.2 UREA NITROGEN 16 [...] 2024 05:30 PM Reporting Lab: [facility] [address] Performing Lab: [facility] [address] WBC 10.49 10*3/uL 4.0-11.0 RBC 3.83 10*6/uL [...] 2024 12:05 PM Reporting Lab: [facility] [address] Performing Lab: [facility] [address] LACTIC ACID 1.5 mmol/L 0.5-2.2 Apr 23, 2024 01:20 PM [facility] PROTHROMBIN TIME/INR Specimen Type: PLASMA No comment entered. Ordering Provider: AARON VICTOR Report Released Date/Time: Apr 23, 2024 12:05 PM Reporting Lab: [facility] [address] Performing Lab: [facility] [address] .INR 1.2 H 0.8-1.1 .PT 14.5 s H 9.4-12.5 Apr 23, 2024 01:20 PM [facility] ACT PART THROMBO TIME Specimen Type: PLASMA No comment entered. Ordering Provider: AARON VICTOR Report Released Date/Time: Apr 23, 2024 12:05 PM Reporting Lab: [facility] [address] Performing Lab: [facility] [address] APTT 29.3 s 25.1-36.5 Apr 23, 2024 01:20 PM [facility] COMPREHENSIVE METABOLIC PANEL+MG Specimen Type: PLASMA No comment entered. Ordering Provider: AARON VICTOR Report Released Date/Time: Apr 23, 2024 12:05 PM Reporting Lab: [facility] [address] Performing Lab: [facility] [address] CREATININE 0.7 mg/dL 0.7-1.2 UREA NITROGEN 19 [...] 2024 12:05 PM Reporting Lab: [facility] [address] Performing Lab: [facility] [address] WBC 12.50 10*3/uL H 4.0-11.0 RBC 4.07 [...] 2024 07:37 AM Reporting Lab: [facility] [address] Performing Lab: [facility] [address] URINE COLOR COLORLESS SPECIFIC GRAVITY 1.009 1.003-1.03 [...] 2024 01:59 PM 211.1 30 [facility] Social History: Smoking Status (Most current) and Tobacco Use (All prior to encounter date) This section includes the most current, and the historical, smoking and tobacco- related health factors from the [place] facility where the Encounter took place. Current Smoking Status This section includes the most current smoking, or tobacco-related health factor, from the [place] facility where the Encounter took place. Date/Time Current Smoking Status Comment Facil ity May 06, 2023 11:30 AM VA-TOBACCO FORMER USER [facility] Tobacco Use History This section includes a history of the smoking, or tobacco-related health factors, that were collected on or before the date of the Encounter. The data comes from the [place] facility where the Encounter took place. Date/Time [...] ALL of a patient's completed or amended [place] Advance and Rescinded Directives. The entries below indicate that a directive exists for the patient, but an actual copy is not included with this document. The data comes from all [facility]. Date Advance Directives Provider Source Mar 23, 2016 CLINICAL WARNING [facility] Radiology Reports: +/- 30 days [...] the Encounter. The data comes from all [place] treatment facilities. Date/Time Radiology Report Provider Source May 11, 2024 12:39 PM IR FISTULOGRAM / S INOGRAM (P): FLACA WEAVER [id number] -1950 M Exm Date: MAY 11, 2024@12:39 Req Phys: PALMIRA POWELL Loc: [facility] C/R FOLLOW-UP CLINIC (Req' Img Loc: INTERVENTIONAL RADIOLOGY Service: [place] [address] (Case [id number] COMPLETE) IR INJECTION FOR SINOGRAM DIAGNOS(ANI Detailed) CPT:80377 Contrast Media : Non-ionic Iodinated Reason for Study: s/p drain placement for diverticular abscess- assess for drain (Case [id number] COMPLETE) IR FISTULOGRAM OR SINOGRAM (ANI Detailed) CPT:70665 Contrast Media : unspecified contrast media (Case [id number] COMPLETE) IR DRAINAGE CATHETER SUPPLY (ANI Detailed) CPT:C1729 Clinical History: [place] IS NOT under investigation for COVID-19 or is COVID-19 negative s/p drain placement for diverticular abscess- assess for drain removal Contact number for responsible provider who can be reached for any questions or notifications of critical findings: [phone] Palmira Powell MD LAST CREATININE 0.7 (05/04/24) Report Status: Verified Date Reported: MAY 11, 2024 Date Verified: MAY 11, 2024 Sanitary Inspector E-Sig:/ES/AMINTA ESCALONA MD Report: PROCEDURES Abdominal drain [...] Interpreting Staff: AMINTA ESCALONA MD, INTERVENTIONAL RADIOLOGIST (Sanitary Inspector) /AMINTA VELAZCO [facility] May 11, 2024 11:[address] (AP) ABDOMEN/PE LVIS (P): MEGFLACA YAMIL [id number] -1950 M Exm Date: MAY 11, 2024@11:40 Req Phys: PALMIRA POWELL Loc: [facility] C/R FOLLOW-UP CLINIC (Req' Img Loc: CT IMAGING Service: [place] [address] (Case [id number] COMPLETE) CT (AP) ABDOMEN/PELVIS W CONTRAST(CT Detailed) CPT:00333 Contrast Media : Non-ionic Iodinated Reason for [...] any questions or notifications of critical findings: [phone] Palmira Powell MD LAST 3: Collection DT [...] PLASMA .CREAT EGFR(CKD-E >90 Ref: >=60 Allergies: ([place] only) TERAZOSIN (Mar 13, 2015) Report Status: Verified Date Reported: MAY 11, 2024 Date Verified: MAY 11, 2024 Sanitary Inspector E-Sig:/ES/LISA PENDLETON MD Report: CT abdomen and [...] Primary Interpreting Staff: LISA PENDLETON MD, RADIOLOGIST (Sanitary Inspector) /JRT LISA PENDLETON [facility] Apr 24, 2024 02:13 PM ABSCESS DRAIN PLAC EMENT PERITONEAL (P): FLACA WEAVER [id number] -1950 M Exm Date: APR 24, 2024@14:13 Req Phys: TAURUS WOOD Amanda Loc: 3KS/04-24-2024@16:07 Img Loc: INTERVENTIONAL RADIOLOGY Service: PRIMARY [place] [address] (Case [id number] COMPLETE) IR PERITONEAL/RETROPERITONEAL PER(ANI Detailed) CPT:97060 Reason for Study: diverticular abscess Clinical History: [place] IS NOT under investigation for COVID-19 or is COVID-19 negative 73yo M with hx of recurrent diverticulitis, transferred from H 04/[address] 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 Palmira Powell MD LAST CREATININE 0.7 (04/23/24) Report Status: Verified Date Reported: APR 24, 2024 Date Verified: APR 24, 2024 Sanitary Inspector E-Sig:/ES/SADIA DEE MD Report: PROCEDURES: Placement [...] Primary Interpreting Staff: SADIA DEE MD, RADIOLOGIST (Sanitary Inspector) Primary Interpreting Resident: JEFFREY FLOWER MD, INSURANCE CLAIMS SPECIALIST /SADIA SNYDER [facility] Apr 24, 2024 02:[address] NEEDLE PLACEMEN T (P): FLACA WEAVER [id number] -1950 M Exm Date: APR 24, 2024@14:11 Req Phys: ISRAELTAURUS KADY Amanda Loc: 3K04-24-2024@16:07 Img Loc: CT IMAGING Service: PRIMARY [place] [address] (Case [id number] COMPLETE) CT SCAN FOR NEEDLE PLACEMENT (CT Detailed) CPT:15618 Reason for Study: diverticular abscess Clinical History: Report Status: Verified Date Reported: APR 24, 2024 Date Verified: APR 24, 2024 Sanitary Inspector E-Sig:/ES/SADIA DEE MD Report: PROCEDURES: Placement [...] Primary Interpreting Staff: SADIA DEE MD, RADIOLOGIST (Sanitary Inspector) Primary Interpreting Resident: JEFFREY FLOWER MD, INSURANCE CLAIMS SPECIALIST /PJB SADIA DEE [facility] Apr 23, 2024 06:36 AM [facility] ABDOMEN/ PELVIS: FLACA WEAVER [id number] -1950 M Exm Date: APR 23, 2024@06:36 Req Phys: MCKAY VICTOR [facility] Loc: 04-24-2024@10:25 Img Loc: OUTSOURCE CT Service: Unknown (Case [id number] COMPLETE) NON [place] CT ABDOMEN/PELVIS (CT Detailed) CPT:29754 Reason for Study: OUTSIDE STUDY Clinical History: OUTSIDE STUDY Report Status: Electronically Filed Date Reported: APR 24, 2024 Report: This is an outside Imaging study and/or report imported for continuity of patient care. This Imaging study and/or report was not reviewed or verified by a [place] Radiologist. Impression: This is an outside Imaging study and/or report imported for continuity of patient care. This Imaging study and/or report was not reviewed or verified by a [place] Radiologist. Primary Diagnostic Code: VERIFIED BY: / [...] the Encounter. The data comes from all [place] treatment facilities. Date/Time Pathology Report Provider Source Apr 21, 2024 07:28 AM LR MICROBIOLOGY RE PORT: Reporting Lab: [facility] [CLIA# [id number]] [place] [address] Accession [UID]: [id number] [[id number]] Received: Apr 21, 2024@08:16 Collection sample: URINE Collection date: Apr 21, 2024 07:28 Provider: ANANDA HUGGINS Comment on specimen: RECEIVED IN STERILE CUP Test(s) ordered: CULTURE & SUSCEPTIBILITY...... completed: Apr 22, 2024 * BACTERIOLOGY FINAL REPORT => Apr 22, 2024 08:38 TECH CODE: [id number] CULTURE RESULTS: NO GROWTH 24 HOURS Bacteriology Remark(s): THIS REPORT IS FINAL =--=--=--=--=--=--=--=--=--=--=--=- -=--=--=--=--=--=--=--=--=--=--=--= --=--=-- Performing Laboratory: Bacteriology Report Performed By: [facility] [CLIA# [id number]] [place] [address] [facility] Encounter Notes: All associated encounter notes This section contains the clinical notes associated to the Encounter. Date/Time Encounter Note(s) Provider Source Apr 23, 2024 08:23 AM ADDENDUM: LOCAL TITLE: Addendum STANDARD TITLE: ADDENDUM DATE OF NOTE: APR 23, 2024@08:23:45 ENTRY DATE: APR 23, 2024@08:23:46 AUTHOR: GUERITA AGUILA COSIGNER: URGENCY: STATUS: COMPLETED Spoke with patient and he indicated he had gone to the [place] ER and then went home and then went to the ER in [place] and they admitted him. He said I [...] Patient Name: FLACA WEAVER Patient Primary Address: [address] [place] [address] Patient Primary Phone: [phone] Patient : 1950 Patient Age: 73 Call Back Number: [phone] Caller/Recipient Relation to Patient: Self Emergency Contact: NIMO PIÑA Triage Summary Conducted triage/discussed symptoms Nurse's Recommendation / WHEN: Now Nurse's Recommendation / WHERE: ED [facility] Patient Disposition Patient/Caregiver agrees to plan of care: Yes Patient WHERE: ED [place] Patient WHEN: Now Patient is Urgent or Emergent Nursing Plan and Disposition Referred patient to higher level of care Instructed to go to Emergency Room (ER) Advised of Financial Disclaimer: Patient advised that recommendation for care provided during the call does not constitute an approval or authorization for payment by the [place] or its staff. Patient advised to report a community ED visit to the national Office of Community Care at within 72 hours. Other course(s) of action Generated msg to PACT/Provider Provided guidance for worsening symptoms: *Caller/Patient* advised to call facilities [place] Clinical Contact Center or seek immediate medical attention for new or worsening symptoms Nurse Summary Nurse Summary: reports the following: Seen in ER Tuesday. This AM has new symptom. This AM is urinating blood and urine has strong odor. Triage deferred, in accordance with ER discharge instructions advised to return to [place] ER now, return to local ER prn, disclaimer read, call 911 prn, advised not to drive himself. initially reported he was going to local ER, then reports he is driving himself to [place] ER now. yelling, using profanity, expressed displeasure at his urinary symptoms and also reported GI symptoms, reports this has been ongoing. Again advised to report to [place] ER now. Please follow up with [place] as needed. Thank you. Clinical Contact Center Codes Clinic/Location: [facility] PHONE CCC RN IMPORTANT: This note was created by [facility] Emergency Clinical Contact Center staff. Please do not alert the staff member by adding them as a signer for future communications. Alerts are not monitored by this user. /alexi/ LEILANI ARAMBULA RN Signed: 04/23/2024 03:44 Receipt Acknowledged By: 04/23/2024 09:15 /es/ Jatinder Cabrera MD Physician 04/23/2024 08:21 /es/ GUERITA AGUILA, RN REGISTERED NURSE 04/23/2024 ADDENDUM STATUS: COMPLETED Addendum: Residential address needs corrected as follows: [address] [address] [facility] /alexi/ LEILANI ARAMBULA RN Signed: 04/23/2024 04:15 Receipt Acknowledged By: 04/23/2024 09:14 /alexi/ Jatinder Cabrera MD Physician 04/23/2024 08:21 /es/ GUERITA AGUILA, RN REGISTERED NURSE GUERITA AGUILA [facility] Apr 23, 2024 04:15 AM ADDENDUM: LOCAL TITLE: Addendum STANDARD TITLE: ADDENDUM DATE OF NOTE: APR 23, 2024@04:15:47 ENTRY DATE: APR 23, 2024@04:15:47 AUTHOR: LEILANI ARAMBULA EXP COSIGNER: URGENCY: STATUS: COMPLETED Addendum: Residential address needs corrected as follows: [address] [address] [facility] /alexi/ LEILANI ARAMBULA RN Signed: 04/23/2024 04:15 Receipt Acknowledged By: 04/23/2024 09:14 /es/ Jatinder Cabrera MD Physician 04/23/2024 08:21 /es/ GUERITA AGUILA RN REGISTERED NURSE --- Original Document --- 04/23/24 CCC: CLINICAL TRIAGE: Patient Demographics Patient Name: FLACA WEAVER Patient Primary [address]: [address] [place] [address] Patient Primary Phone: [phone] Patient : 1950 Patient Age: 73 Call Back Number: [phone] Caller/Recipient Relation to Patient: Self Emergency Contact: NIMO PIÑA Triage Summary Conducted triage/discussed symptoms Nurse's Recommendation / WHEN: Now Nurse's Recommendation / WHERE: ED [place] Patient Disposition Patient/Caregiver agrees to plan of care: Yes Patient WHERE: ED [place] Patient WHEN: Now Patient is Urgent or Emergent Nursing Plan and Disposition Referred patient to higher level of care Instructed to go to Emergency Room (ER) Advised of Financial Disclaimer: Patient advised that recommendation for care provided during the call does not constitute an approval or authorization for payment by the [place] or its staff. Patient advised to report a community ED visit to the [facility] Office of Community Care at within 72 hours. Other course(s) of action Generated msg to PACT/Provider Provided guidance for worsening symptoms: *Caller/Patient* advised to call facilities [place] Clinical Contact Center or seek immediate medical attention for new or worsening symptoms Nurse Summary Nurse Summary: reports the following: Seen in ER Tuesday. This AM has new symptom. This AM is urinating blood and urine has strong odor. Triage deferred, in accordance with ER discharge instructions advised to return to [place] ER now, return to local ER prn, disclaimer read, call 911 prn, advised not to drive himself. initially reported he was going to local ER, then reports he is driving himself to [place] ER now. yelling, using profanity, expressed displeasure at his urinary symptoms and also reported GI symptoms, reports this has been ongoing. Again advised to report to [place] ER now. Please follow up with as needed. Thank you. Clinical Contact Center Codes Clinic/Location: [facility] PHONE CCC RN IMPORTANT: This note was created by [facility] Clinical Contact Center staff. Please do not [...] he indicated he had gone to the [place] ER and then went home and then went to the ER in [place] and they admitted him. He said I [...] /alexi/ Jatinder Cabrera MD Physician LEILANI ARAMBULA [facility] Apr 23, 2024 03:44 AM RN PROGRESS NOTE: LOCAL TITLE: CCC: CLINICAL TRIAGE STANDARD TITLE: RN PROGRESS NOTE DATE OF NOTE: APR 23, 2024@03:44:29 ENTRY DATE: APR 23, 2024@03:44:29 AUTHOR: LEILANI ARAMBULA EXP COSIGNER: URGENCY: STATUS: COMPLETED CCC: CLINICAL TRIAGE Has ADDENDA Patient Demographics Patient Name: FLACA WEAVER Patient Primary [address] [address] [place] [id number] Patient Primary Phone: [phone] Patient : 1950 Patient Age: 73 Call Back Number: [phone] Caller/Recipient Relation to Patient: Self Emergency Contact: [...] approval or authorization for payment by the [place] or its staff. Patient advised to report a community ED visit to the [facility] Office of Community Care at within 72 hours. Other course(s) of action Generated msg to PACT/Provider Provided guidance for worsening symptoms: *Caller/Patient* advised to call facilities [place] Clinical Contact Center or seek immediate medical attention for new or worsening symptoms Nurse Summary Nurse Summary: Gregoria reports the following: Seen in ER Tuesday. This AM has new symptom. This AM is urinating blood and urine has strong odor. Triage deferred, in accordance with ER discharge instructions advised to return to [place] ER now, return to local ER prn, disclaimer read, call 911 prn, advised not to drive himself. [place] initially reported he was going to local ER, then reports he is driving himself to [place] ER now. yelling, using profanity, expressed displeasure at his urinary symptoms and also reported GI symptoms, reports this has been ongoing. Again advised to report to [place] ER now. Please follow up with [place] as needed. Thank you. Clinical Contact Center Codes Clinic/Location: [facility] PHONE [facility] ROSALIND IMPORTANT: This note was created by [facility] Emergency Clinical Contact Center staff. Please do not alert the staff member by adding them as a signer for future communications. Alerts are not monitored by this user. /alexi/ LEILANI ARAMBULA RN Signed: 04/23/2024 03:44 Receipt Acknowledged By: 04/23/2024 09:15 /alexi/ Jatinder Cabrera MD Physician 04/23/2024 08:21 /es/ GUERITA AGUILA, RN REGISTERED NURSE 04/23/2024 ADDENDUM STATUS: COMPLETED Addendum: Residential address needs corrected as follows: [address] [address] [facility] /es/ LEILANI ARAMBULA RN Signed: 04/23/2024 04:15 Receipt Acknowledged By: 04/23/2024 09:14 /es/ Jatinder Cabrera MD Physician 04/23/2024 08:21 /es/ GUERITA AGUILA, RN REGISTERED NURSE 04/23/2024 ADDENDUM STATUS: COMPLETED Spoke with patient and he indicated he had gone to the [place] ER and then went home and then went to the ER in [place] and they admitted him. He said I [...] Cabrera as an fyi. /es/ GUERITA AGUILA, RN REGISTERED NURSE Signed: 04/23/2024 08:26 Receipt Acknowledged By: 04/23/2024 09:15 /es/ Jatinder Cabrera MD Physician LEILANI ARAMBULA [facility]
--- OUTSIDE RECORDS SUMMARY | 2024-07-16 07:07 | XMS_ITS | Encounter Summary ---
Author Name [facility] [facility] [place] [facility] [place] Address [address] [place] [address] Care Team Providers Care Electrophysiology Scientist Name Role Phone JATINDER BENITEZ Primary Care [...] PART A Sep 29, 2016 PART A [id number] [phone] JUDY WEAVER PATIENT Selected Encounter This section includes the information on record at [place] for the Encounter. Date/Time Encounter Type Encounter Description Reason Provider Source Apr 23, 2024 08:00 AM Outpatient Encounter ADMIN PAT ACTIVTIES (MASNONCT) BRIDGETTE ZAZUETA [facility] Encounter Template Text not used by [place] Plan of Treatment: Future Appointments (+ 6 months) and Future Tests (+/- 45 days) The Plan of Treatment section includes future care activities for the patient from all [place] treatmentfacilities. This section includes future appointments and [...] 2024 02:30 PM AMBULATORY - NONE [place] [facility] May 02, 2024 10:00 AM AMBULATORY - SURGERY [facility] May 04, 2024 09:00 AM [facility] May 07, 2024 08:45 AM AMBULATORY - MEDICINE [facility] May 08, 2024 02:00 PM [facility] May 09, 2024 07:30 AM AMBULATORY - SURGERY [facility] May 11, 2024 01:00 PM AMBULATORY - NONE [place] [facility] May 11, 2024 03:30 PM [facility] May 15, 2024 08:30 AM AMBULATORY - MEDICINE [facility] May 16, 2024 07:45 AM AMBULATORY - SURGERY [facility] May 22, 2024 07:30 AM [facility] May 22, 2024 05:30 PM [facility] May 25, 2024 08:22 AM AM[facility] - [facility] May 25, 2024 09:00 AM AM[facility] NONE [facility] May 28, 2024 08:15 AM AMBULATORY - SURGERY [facility] Jun 04, 2024 11:30 AM [facility] Jun 08, 2024 11:00 AM AMBULATORY - SURGERY [facility] Jun 08, 2024 12:45 PM [facility] Jun 08, 2024 01:15 PM AMBULATORY - MEDICINE [facility] Jun 08, 2024 01:45 PM AMBULATORY - SURGERY [facility] Active, Pending, and Scheduled [...] The data comes from all [facility]. Test Date/Time Test Type Test Details Facility [...] ~JUAN drain culture/gram stain [facility] May 28, 2024 12:00 AM Laboratory - Blood Bank Order TYPE & SCREEN - LAB BLOOD SP [facility] Lab Results: +/- 30 [...] Range Comment May 21, 2024 06:59 AM [facility] BASIC METABOLIC PANEL+MG Specimen Type: PLASMA No comment entered. Ordering Provider: GOLDIE BENITEZ Report Released Date/Time: May 15, 2024 08:34 AM Reporting Lab: [facility] [address] Performing Lab: [facility] [address] CREATININE 0.9 mg/dL 0.7-1.2 UREA NITROGEN 18 mg/dL 8-26 GLUCOSE 126 mg/dL H 70-100 SODIUM 138 mmol/L 136-145 POTASSIUM 4.0 mmol/L 3.5-5.1 CHLORIDE 105 mmol/L 98-107 CO2 24 mmol/L 22-29 CALCIUM 9.8 mg/dL 8.4-10.2 MAGNESIUM 2.0 mg/dL 1.6-2.6 ANION GAP 9 mmol/L 5-15 .CREAT EGFR(CKD-EPI) >90 >60 May 04, 2024 08:36 AM [facility] BASIC METABOLIC PANEL+MG Specimen Type: PLASMA No comment entered. Ordering Provider: GOLDIE BENITEZ Report Released Date/Time: May 03, 2024 12:52 PM Reporting Lab: [facility] [address] Performing Lab: [facility] [address] CREATININE 0.7 mg/dL 0.7-1.2 UREA NITROGEN 13 mg/dL 8-26 GLUCOSE 91 mg/dL 70-100 SODIUM 141 mmol/L 136-145 POTASSIUM 3.6 mmol/L 3.5-5.1 CHLORIDE 109 mmol/L H 98-107 CO2 25 mmol/L 22-29 CALCIUM 8.9 mg/dL 8.4-10.2 MAGNESIUM 2.0 mg/dL 1.6-2.6 ANION GAP 7 mmol/L 5-15 .CREAT EGFR(CKD-EPI) >90 >60 Apr 26, 2024 07:16 AM [facility] BASIC METABOLIC PANEL+MG Specimen Type: PLASMA No comment entered. Ordering Provider: JONO RANDOLPH Report Released Date/Time: Apr 25, 2024 02:50 PM Reporting Lab: [facility] [address] Performing Lab: [facility] [address] CREATININE 0.7 mg/dL 0.7-1.2 UREA NITROGEN 15 [...] Apr 25, 2024 05:04 PM Reporting Lab: [facility] [address] Performing Lab: [facility] [address] CREATININE 0.7 mg/dL 0.7-1.2 UREA NITROGEN 15 [...] Apr 24, 2024 12:37 PM Reporting Lab: [facility] [address] Performing Lab: [facility] [address] CREATININE 0.7 mg/dL 0.7-1.2 UREA NITROGEN 14 [...] Apr 24, 2024 12:37 PM Reporting Lab: [facility] [address] Performing Lab: [facility] [address] CREATININE 0.7 mg/dL 0.7-1.2 UREA NITROGEN 16 [...] Critical Value Reported To: Cait Zamorano RN 04-24-24@[address] [place] [address]. Critical value report confirmed. Ordering Provider: AARON VICTOR Report Released Date/Time: Apr 23, 2024 05:30 PM Reporting Lab: [facility] [address] Performing Lab: [facility] [address] CREATININE 0.7 mg/dL 0.7-1.2 UREA NITROGEN 16 [...] Apr 23, 2024 05:30 PM Reporting Lab: [facility] [address] Performing Lab: [facility] [address] WBC 10.49 10*3/uL 4.0-11.0 RBC 3.83 10*6/uL [...] Apr 23, 2024 12:05 PM Reporting Lab: [facility] [address] Performing Lab: [facility] [address] LACTIC ACID 1.5 mmol/L 0.5-2.2 Apr 23, 2024 01:20 PM [facility] ACT PART THROMBO TIME Specimen Type: PLASMA No comment entered. Ordering Provider: AARON VICTOR Report Released Date/Time: Apr 23, 2024 12:05 PM Reporting Lab: [facility] [address] Performing Lab: [facility] [address] APTT 29.3 s 25.1-36.5 Apr 23, 2024 01:20 PM [facility] PROTHROMBIN TIME/INR Specimen Type: PLASMA No comment entered. Ordering Provider: AARON VICTOR Report Released Date/Time: Apr 23, 2024 12:05 PM Reporting Lab: [facility] [address] Performing Lab: [facility] [address] .INR 1.2 H 0.8-1.1 .PT 14.5 s H 9.4-12.5 Apr 23, 2024 01:20 PM [facility] COMPREHENSIVE METABOLIC PANEL+MG Specimen Type: PLASMA No comment entered. Ordering Provider: AARON VICTOR Report Released Date/Time: Apr 23, 2024 12:05 PM Reporting Lab: [facility] [address] Performing Lab: [facility] [address] CREATININE 0.7 mg/dL 0.7-1.2 UREA NITROGEN 19 [...] Apr 23, 2024 12:05 PM Reporting Lab: [facility] [address] Performing Lab: [facility] [address] WBC 12.50 10*3/uL H 4.0-11.0 RBC 4.07 [...] Apr 21, 2024 07:37 AM Reporting Lab: [facility] [address] Performing Lab: [facility] [address] URINE COLOR COLORLESS SPECIFIC GRAVITY 1.009 1.003-1.03 [...] Apr 23, 2024 01:59 PM 211.1 30 [facility] Social History: Smoking Status (Most current) and Tobacco Use (All prior to encounter date) This section includes the most current, and the historical, smoking and tobacco- related health factors from the [place] facility where the Encounter took place. Current Smoking Status This section includes the most current smoking, or tobacco-related health factor, from the [place] facility where the Encounter took place. Date/Time Current Smoking Status Comment Juan Manuel putnam May 06, 2023 11:30 AM VA-TOBACCO FORMER USER [facility] Tobacco Use History This section includes a history of the smoking, or tobacco-related health factors, that were collected on or before the date of the Encounter. The data comes from the [place] facility where the Encounter took place. Date/Time [...] PM IR FISTULOGRAM / S INOGRAM (P): FLYNN WEAVER [id number] -1950 M Exm Date: MAY 11, 2024@12:39 Req Phys: PALMIRA POWELL Loc: [facility] C/R FOLLOW-UP CLINIC (Req' Img Loc: INTERVENTIONAL RADIOLOGY Service: [place] [address] (Case [id number] COMPLETE) IR INJECTION FOR SINOGRAM DIAGNOS(ANI Detailed) CPT:31607 Contrast Media : Non-ionic Iodinated Reason for Study: s/p drain placement for diverticular abscess- assess for drain (Case [id number] COMPLETE) IR FISTULOGRAM OR SINOGRAM (ANI Detailed) CPT:67737 Contrast Media : unspecified contrast media (Case [id number] COMPLETE) IR DRAINAGE CATHETER SUPPLY (ANI Detailed) CPT:C1729 Clinical History: [place] IS NOT under investigation for COVID-19 or is COVID-19 negative s/p drain placement for diverticular abscess- assess for drain removal Contact number for responsible provider who can be reached for any questions or notifications of critical findings: [phone] Palmira Powell MD LAST CREATININE 0.7 (05/04/24) Report Status: Verified Date Reported: MAY 11, 2024 Date Verified: MAY 11, 2024 Glass Mold Repairer E-Sig:/ES/AMINTA ESCALONA MD Report: PROCEDURES Abdominal drain [...] Interpreting Staff: AMINTA ESCALONA MD, INTERVENTIONAL RADIOLOGIST (Glass Mold Repairer) /AMINTA VELAZCO [facility] May 11, 2024 11:[address] (AP) ABDOMEN/PE LVIS (P): MEGFLYNN YAMIL [id number] -1950 M Exm Date: MAY 11, 2024@11:40 Req Phys: PALMIRA POWELL Loc: [facility] C/R FOLLOW-UP CLINIC (Req' Img Loc: CT IMAGING Service: [place] [address] (Case [id number] COMPLETE) CT (AP) ABDOMEN/PELVIS W CONTRAST(CT Detailed) CPT:94534 Contrast Media : Non-ionic Iodinated Reason for [...] any questions or notifications of critical findings: [phone] Palmira Powell MD LAST 3: Collection DT [...] PLASMA .CREAT EGFR(CKD-E >90 Ref: >=60 Allergies: ([place] only) TERAZOSIN (Mar 13, 2015) Report Status: Verified Date Reported: MAY 11, 2024 Date Verified: MAY 11, 2024 Glass Mold Repairer E-Sig:/ES/LISA PENDLETON MD Report: CT abdomen and [...] Primary Interpreting Staff: LISA PENDLETON MD, RADIOLOGIST (Glass Mold Repairer) /JRT LISA PENDLETON [facility] Apr 24, 2024 02:13 PM ABSCESS DRAIN PLAC EMENT PERITONEAL (P): FLYNN WEAVER [id number] -1950 M Exm Date: APR 24, 2024@14:13 Req Phys: TAURUS WOOD Loc: 3KS/04-24-2024@16:07 Img Loc: INTERVENTIONAL RADIOLOGY Service: PR[place] [address] (Case [id number] COMPLETE) IR PERITONEAL/RETROPERITONEAL PER(ANI Detailed) CPT:77275 Reason for Study: diverticular abscess Clinical History: [place] IS NOT under investigation for COVID-19 or is COVID-19 negative 73yo M with hx of recurrent diverticulitis, transferred from [facility] 04/[address] 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 Palmira Powell MD LAST CREATININE 0.7 (04/23/24) Report Status: Verified Date Reported: APR 24, 2024 Date Verified: APR 24, 2024 Glass Mold Repairer E-Sig:/ES/SADIA DEE MD Report: PROCEDURES: Placement [...] anesthesia. Using real-time CT fluoroscopy, a 5 Senegalese Yueh catheter was advanced into the collection in the left lower quadrant. A wire was coiled in the collection. The tract into the collection was dilated to accommodate the 12 Senegalese locking pigtail drainage catheter. The catheter was secured to the skin with monofilament suture and connected to JUAN bulb suction. Impression: Successful placement of a 12 Senegalese locking pigtail drainage catheter in the left lower quadrant abscess. This catheter is connected to JUAN bulb suction with flushes, as ordered. I, SADIA DEE, have reviewed the images and report. Primary Interpreting Staff: SADIA DEE MD, RADIOLOGIST (Glass Mold Repairer) Primary Interpreting Resident: JEFFREY FLOWER MD, RISK MANAGEMENT INTERNSHIP /SADIA SNYDER [facility] Apr 24, 2024 02:[address] NEEDLE PLACEMEN T (P): MEGFLYNN LOBO [id number] -1950 M Exm Date: APR 24, 2024@14:11 Req Phys: TAURUS WOOD Amanda Loc: 3K04-24-2024@16:07 Im Loc: CT IMAGING Service: PR[place] [address] (Case [id number] COMPLETE) CT SCAN FOR NEEDLE PLACEMENT (CT Detailed) CPT:07617 Reason for Study: diverticular abscess Clinical History: Report Status: Verified Date Reported: APR 24, 2024 Date Verified: APR 24, 2024 Glass Mold Repairer E-Sig:/ES/SADIA DEE MD Report: PROCEDURES: Placement [...] anesthesia. Using real-time CT fluoroscopy, a 5 Senegalese Yueh catheter was advanced into the collection in the left lower quadrant. A wire was coiled in the collection. The tract into the collection was dilated to accommodate the 12 Senegalese locking pigtail drainage catheter. The catheter was secured to the skin with monofilament suture and connected to JUAN bulb suction. Impression: Successful placement of a 12 Senegalese locking pigtail drainage catheter in the left lower quadrant abscess. This catheter is connected to JUAN bulb suction with flushes, as ordered. I, SADIA DEE, have reviewed the images and report. Primary Interpreting Staff: SADIA DEE MD, RADIOLOGIST (Glass Mold Repairer) Primary Interpreting Resident: JEFFREY FLOWER MD, RISK MANAGEMENT INTERNSHIP /PJB SADIA DEE [facility] Apr 23, 2024 06:[address] [place] [address] ABDOMEN/ PELVIS: FLYNN WEAVER [id number] -1950 M Exm Date: APR 23, 2024@06:36 Req Phys: MCKAY VICTOR [facility] Loc: 04-24-2024@10:25 Im Loc: OUTSOURCE CT Service: Unknown (Case [id number] COMPLETE) NON [place] CT ABDOMEN/PELVIS (CT Detailed) CPT:81369 Reason for Study: OUTSIDE STUDY Clinical History: OUTSIDE STUDY Report Status: Electronically Filed Date Reported: APR 24, 2024 Report: This is an outside Imaging study and/or report imported for continuity of patient care. This Imaging study and/or report was not reviewed or verified by a [place] Radiologist. Impression: This is an outside Imaging study and/or report imported for continuity of patient care. This Imaging study and/or report was not reviewed or verified by a [place] Radiologist. Primary Diagnostic Code: VERIFIED BY: / [...] comes from all [place] treatment facilities. Date/Time Pathology Report Provider Source Apr 21, 2024 07:28 AM LR MICROBIOLOGY RE PORT: Reporting Lab: [facility] [CLIA# [id number]] [place] [address] Accession [UID]: [id number] [[id number]] Received: Apr 21, 2024@08:16 Collection sample: URINE Collection date: Apr 21, 2024 07:28 Provider: ANANDA HUGGINS Comment on specimen: RECEIVED IN STERILE CUP Test(s) ordered: CULTURE & SUSCEPTIBILITY...... completed: Apr 22, 2024 * BACTERIOLOGY FINAL REPORT => Apr 22, 2024 08:38 TECH CODE: [id number] CULTURE RESULTS: NO GROWTH 24 HOURS Bacteriology Remark(s): THIS REPORT IS FINAL =--=--=--=--=--=--=--=--=--=--=--=- -=--=--=--=--=--=--=--=--=--=--=--= --=--=-- Performing Laboratory: Bacteriology Report Performed By: [facility] [CLIA# [id number]] [place] [address] [facility] Encounter Notes: All associated [...] QUIJANO COSIGNER: URGENCY: STATUS: COMPLETED PATIENT ADDRESS: [address], [place] [address] PHONE: Patient/guardian consents to transfer. Referring physician certifies that benefit of transfer outways risk. From:[place], [place] Sending Facility Provider/Title/Pager: [facility] - Dr. Man Accepting Facility Provider/Designee/Pager: [facility] Dr. Quijano [phone] -------- Requested Date/Time: APR 23, 2024 08:25 [...] IV Fluid/O2 Administered: 1L IVF Assessment: Flynn Weaver is a 73 year old male with PMH recurrent diverticulitis, h/o hemorrhoids s/p banding, and chronic constipation who presented to the ED in [place], [place] with complaints of air and feces [...] Level of Care Prior to Transfer at [facility]: ER, Medical Unit Level of Care Required at [facility]: Medical Unit Reports requested/received from referring facility: Health Summary, Med Profile, Inter-facility Transfer Form, Advance Directive, Imaging Reports/Imaging CD, ER Reports, Progress Notes, Discharge Summary /alexi/ COLT QUIJANO MD Physician Signed: 04/23/2024 08:35 Receipt Acknowledged By: 04/23/2024 08:46 /alexi/ BRIDGETTE CHRISTIANSON RN Community Environmental Services Specialist COLT QUIJANO [facility] Apr 23, 2024 08:01 AM NONVA NOTE: LOCAL TITLE: COMMUNITY CARE-AMNA SELF PRESENTING CARE COORD PLAN STANDARD TITLE: NONVA NOTE DATE OF NOTE: APR 23, 2024@08:01 ENTRY DATE: APR 23, 2024@08:01:25 AUTHOR: KIRTI JONES EXP COSIGNER: URGENCY: STATUS: COMPLETED COMMUNITY CARE-AMNA SELF PRESENTING CARE COORD PLAN NOTE Has ADDENDA Emergency Notification Intake Date Presenting to the Facility: Mar Method of Contact: Phone [facility] Name: Hospital: [place] Address: City: [place] State: [place] Zip Code: Phone : [facility] Facility Point of Contact: Name: DR MAN Chief complaint: DIVERTICULOSIS ABSCESS COLOVESICAL FISTULA Primary Diagnosis: Disposition Unknown at time of intake note entry /alexi/ KIRTI JONES CEMENT BLOCK MAKER (AOD) Signed: 04/23/2024 08:02 Receipt Acknowledged By: 04/23/2024 08:08 /laexi/ BRIDGETTE CHRISTIANSON roller cleaner Environmental Services Specialist 04/23/2024 ADDENDUM STATUS: COMPLETED [id number] Comments: 04/23/2024 5:08:54 AM EDT PRANEETH COLEMAN UNABLE TO CALLOUT AFTER HOURS, MATCHED ALL INFO TO JONATHAN /alexi/ [facility] AUTO BODY TECHNICIAN Signed: 04/23/2024 08:34 04/23/2024 ADDENDUM STATUS: COMPLETED I spoke to Lino GOLDEN who called the ED physcian and spoke to her about . [place] is sending over the records for and I will scan them into chart once available. Bed Coordinator is finding a bed for this . /es/ BRIDGETTE CHRISTIANSON RN Community Environmental Services Specialist Signed: 04/23/2024 08:45 04/23/2024 ADDENDUM STATUS: COMPLETED VistA Imaging Scanned Document - Addendum. 04/23/24 [place] interfacility transfer request for documentation for the chart will be admitted to the [facility] 3K. SCANNED DOCUMENT SIGNATURE NOT REQUIRED Electronically Filed: 04/23/2024 by: BRIDGETTE CHRISTIANSON RN Community Environmental Services Specialist 04/23/2024 ADDENDUM STATUS: COMPLETED Received a call from Julio from the ED is the 2nd inline for the EMS still not a ETA but the nurse will be calling to the nurses station 3K for report. /es/ BRIDGETTE CHRISTIANSON RN Community Environmental Services Specialist Signed: 04/23/2024 09:14 KIRTI JONES [facility]
--- OUTSIDE RECORDS SUMMARY | 2024-07-16 07:07 | XMS_ITS | Encounter Summary ---
Author Name [facility] [place] Organization [facility] [place] Address [address] [place] [address] Care Team Providers Care Charge Entry Clerk Name Role Phone JATINDER BENITEZ Primary [...] PART A Sep 29, 2016 PART A [phone] JUDY WEAVER PATIENT Selected Encounter This section [...] 02:30 PM AMBULATORY - NONE [place] [facility] May 02, 2024 10:00 AM AMBULATORY - SURGERY [place] [facility] May 04, 2024 09:00 AM AMBULATORY - NONE [place] [facility] May 07, 2024 08:45 AM AMBULATORY - [place]IC[place] [facility] May 08, 2024 02:00 PM AMBULATORY - NONE [place] [facility] May 09, 2024 07:30 AM AMBULATORY - [place]GERY [place] [facility] May 11, 2024 01:00 PM AMBULATORY - NONE [place] [facility] May 11, 2024 03:30 PM AMBULATORY - NONE [place] [facility] May 15, 2024 08:30 AM [place]ULATORY - [place]IC[place] [facility] May 16, 2024 07:45 AM AMBULATORY - [place]GERY [place] [facility] May 22, 2024 07:30 AM AMBULATORY - NONE [place] [facility] May 22, 2024 05:30 PM AMBULATORY - NONE [place] [facility] May 25, 2024 08:22 AM AMBULATORY - NONE [place] [facility] May 25, 2024 09:00 AM AMBULATORY - NONE [place] [facility] May 28, 2024 08:15 AM AMBULATORY - [place]GERY [place] [facility] Jun 04, 2024 11:30 AM AMBULATORY - NONE [place] [facility] Jun 08, 2024 11:00 AM AMBULATORY - [place]GERY [place] [facility] Jun 08, 2024 12:45 PM AMBULATORY - NONE [place] [facility] Jun 08, 2024 01:15 PM [place]ORY - [place]IC[place] [facility] Jun 08, 2024 01:45 PM AMBULATORY - SURGERY [place] [facility] Active, Pending, and Scheduled Orders This [...] drain culture/gram stain [facility] May 28, 2024 12:00 AM Laboratory - Blood Bank Order TYPE & SCREEN - LAB BLOOD SP [facility] Lab Results: +/- [...] Range Comment May 21, 2024 06:59 AM [facility] BASIC METABOLIC PANEL+MG Specimen Type: PLASMA No comment entered. Ordering Provider: GOLDIE BENITEZ Report Released Date/Time: May 15, 2024 08:34 AM Reporting Lab: [facility] [phone] Performing Lab: [facility] [address] CREATININE 0.9 mg/dL 0.7-1.2 UREA NITROGEN 18 mg/dL 8-26 GLUCOSE 126 mg/dL H 70-100 SODIUM 138 mmol/L 136-145 POTASSIUM 4.0 mmol/L 3.5-5.1 CHLORIDE 105 mmol/L 98-107 CO2 24 mmol/L 22-29 CALCIUM 9.8 mg/dL 8.4-10.2 MAGNESIUM 2.0 mg/dL 1.6-2.6 ANION GAP 9 mmol/L 5-15 .CREAT EGFR(CKD-EPI) >90 >60 May 04, 2024 08:36 AM [facility] BASIC METABOLIC PANEL+MG Specimen Type: PLASMA No comment entered. Ordering Provider: GOLDIE BENITEZ Report Released Date/Time: May 03, 2024 12:52 PM Reporting Lab: [facility] [address] Performing Lab: [facility] [address] CREATININE 0.7 mg/dL 0.7-1.2 UREA NITROGEN 13 mg/dL 8-26 GLUCOSE 91 mg/dL 70-100 SODIUM 141 mmol/L 136-145 POTASSIUM 3.6 mmol/L 3.5-5.1 CHLORIDE 109 mmol/L H 98-107 CO2 25 mmol/L 22-29 CALCIUM 8.9 mg/dL 8.4-10.2 MAGNESIUM 2.0 mg/dL 1.6-2.6 ANION GAP 7 mmol/L 5-15 .CREAT EGFR(CKD-EPI) >90 >60 Apr 26, 2024 07:16 AM [facility] BASIC METABOLIC PANEL+MG Specimen Type: PLASMA No comment entered. Ordering Provider: JONO RANDOLPH Report Released Date/Time: Apr 25, 2024 02:50 PM Reporting Lab: [facility] [address] Performing Lab: [facility] [address] CREATININE 0.7 mg/dL 0.7-1.2 UREA NITROGEN 15 [...] 2024 05:04 PM Reporting Lab: [facility] [address] Performing Lab: [facility] [address] CREATININE 0.7 mg/dL 0.7-1.2 UREA NITROGEN 15 [...] 2024 12:37 PM Reporting Lab: [facility] [address] Performing Lab: [facility] [address] CREATININE 0.7 mg/dL 0.7-1.2 UREA NITROGEN 14 [...] 2024 12:37 PM Reporting Lab: [facility] [address] Performing Lab: [facility] [address] CREATININE 0.7 mg/dL 0.7-1.2 UREA NITROGEN 16 [...] 2024 05:30 PM Reporting Lab: [facility] [address] Performing Lab: [facility] [address] CREATININE 0.7 mg/dL 0.7-1.2 UREA NITROGEN 16 [...] 2024 05:30 PM Reporting Lab: [facility] [address] Performing Lab: [facility] [address] WBC 10.49 10*3/uL 4.0-11.0 RBC 3.83 10*6/uL [...] 2024 12:05 PM Reporting Lab: [facility] [address] Performing Lab: [facility] [address] LACTIC ACID 1.5 mmol/L 0.5-2.2 Apr 23, 2024 01:20 PM [facility] PROTHROMBIN TIME/INR Specimen Type: PLASMA No comment entered. Ordering Provider: AARON VICTOR Report Released Date/Time: Apr 23, 2024 12:05 PM Reporting Lab: [facility] [address] Performing Lab: [facility] [address] .INR 1.2 H 0.8-1.1 .PT 14.5 s H 9.4-12.5 Apr 23, 2024 01:20 PM [facility] ACT PART THROMBO TIME Specimen Type: PLASMA No comment entered. Ordering Provider: AARON VICTOR Report Released Date/Time: Apr 23, 2024 12:05 PM Reporting Lab: [facility] [address] Performing Lab: [facility] [address] APTT 29.3 s 25.1-36.5 Apr 23, 2024 01:20 PM [facility] COMPREHENSIVE METABOLIC PANEL+MG Specimen Type: PLASMA No comment entered. Ordering Provider: AARON VICTOR Report Released Date/Time: Apr 23, 2024 12:05 PM Reporting Lab: [facility] [address] Performing Lab: [facility] [address] CREATININE 0.7 mg/dL 0.7-1.2 UREA NITROGEN 19 [...] 2024 12:05 PM Reporting Lab: [facility] [address] Performing Lab: [facility] [address] WBC 12.50 10*3/uL H 4.0-11.0 RBC 4.07 [...] 2024 07:37 AM Reporting Lab: [facility] [address] Performing Lab: [facility] [address] [facility] [address] URINE COLOR COLORLESS SPECIFIC GRAVITY 1.009 1.003-1.03 [...] Apr 23, 2024 01:59 PM 211.1 30 [place] [facility] Social History: Smoking Status (Most current) and [...] this document. The data comes from all [facility]. Date Advance Directives Provider Source Mar 23, 2016 CLINICAL WARNING [facility] Radiology Reports: +/- 30 days of [...] FISTULOGRAM / S INOGRAM (P): FLACA WEAVER [id number] -1950 M Exm Date: MAY 11, 2024@12:39 Req Phys: PALMIRA POWELL Loc: [facility] C/R FOLLOW-UP CLINIC (Req' Img Loc: INTERVENTIONAL RADIOLOGY Service: [place] [address] (Case [id number] COMPLETE) IR INJECTION FOR SINOGRAM DIAGNOS(ANI Detailed) CPT:46231 Contrast Media : Non-ionic Iodinated Reason for Study: s/p drain placement for diverticular abscess- assess for drain (Case [id number] COMPLETE) IR FISTULOGRAM OR SINOGRAM (ANI Detailed) CPT:94292 Contrast Media : unspecified contrast media (Case [id number] COMPLETE) IR DRAINAGE CATHETER SUPPLY (ANI Detailed) CPT:C1729 Clinical History: IS NOT under investigation for COVID-19 or is COVID-19 negative s/p drain placement for diverticular abscess- assess for drain removal Contact number for responsible provider who can be reached for any questions or notifications of critical findings: [phone] Palmira Powell MD LAST CREATININE 0.7 (05/04/24) Report Status: Verified Date Reported: MAY 11, 2024 Date Verified: MAY 11, 2024 System Administration Manager E-Sig:/ES/AMINTA ESCALONA MD Report: PROCEDURES Abdominal drain [...] Interpreting Staff: AMINTA ESCALONA MD, INTERVENTIONAL RADIOLOGIST (System Administration Manager) /AMINTA VELAZCO [facility] May 11, 2024 11:[address] (AP) ABDOMEN/PE LVIS (P): MEGFLACA LOBO [id number] -1950 M Exm Date: MAY 11, 2024@11:40 Req Phys: PALMIRA POWELL Loc: [facility] C/R FOLLOW-UP CLINIC (Req' Img Loc: CT IMAGING Service: [place] [address] (Case [id number] COMPLETE) CT (AP) ABDOMEN/PELVIS W CONTRAST(CT Detailed) CPT:03702 Contrast Media : Non-ionic Iodinated Reason for [...] any questions or notifications of critical findings: [phone] Palmira Powell MD LAST 3: Collection DT [...] PLASMA .CREAT EGFR(CKD-E >90 Ref: >=60 Allergies: ([place] only) TERAZOSIN (Mar 13, 2015) Report Status: Verified Date Reported: MAY 11, 2024 Date Verified: MAY 11, 2024 System Administration Manager E-Sig:/ES/LISA PENDLETON MD Report: CT abdomen and [...] Primary Interpreting Staff: LISA PENDLETON MD, RADIOLOGIST (System Administration Manager) /JRT LISA PENDLETON [facility] Apr 24, 2024 02:13 PM ABSCESS DRAIN PLAC EMENT PERITONEAL (P): FLACA WEAVER [id number] -1950 M Exm Date: APR 24, 2024@14:13 Req Phys: TAURUS WOOD Amanda Loc: 3KS/04-24-2024@16:07 Img Loc: INTERVENTIONAL RADIOLOGY Service: PRIMARY [place] [address] (Case [id number] COMPLETE) IR PERITONEAL/RETROPERITONEAL PER(ANI Detailed) CPT:41178 Reason for Study: diverticular abscess Clinical History: [...] any questions or notifications of critical findings: [phone] If ordering provider is a trainee, enter the name and contact information of the responsible staff physician. Palmira Powell MD LAST CREATININE 0.7 (04/23/24) Report Status: Verified Date Reported: APR 24, 2024 Date Verified: APR 24, 2024 System Administration Manager E-Sig:/ES/SADIA DEE MD Report: PROCEDURES: Placement [...] Primary Interpreting Staff: SADIA DEE MD, RADIOLOGIST (System Administration Manager) Primary Interpreting Resident: JEFFREY FLOWER MD, MEDICAL RECORDS ASSISTANT /SADIA SNYEDR [facility] Apr 24, 2024 02:[address] NEEDLE PLACEMEN T (P): FLACA WEAVER [id number] -1950 M Exm Date: APR 24, 2024@14:11 Req Phys: ISRAELTAURUS KDAY Amanda Loc: 3K04-24-2024@16:07 Img Loc: CT IMAGING Service: PRIMARY [place] [address] (Case [id number] COMPLETE) CT SCAN FOR NEEDLE PLACEMENT (CT Detailed) CPT:81310 Reason for Study: diverticular abscess Clinical History: Report Status: Verified Date Reported: APR 24, 2024 Date Verified: APR 24, 2024 System Administration Manager E-Sig:/ES/SADIA DEE MD Report: PROCEDURES: Placement [...] Primary Interpreting Staff: SADIA DEE MD, RADIOLOGIST (System Administration Manager) Primary Interpreting Resident: JEFFREY FLOWER MD, MEDICAL RECORDS ASSISTANT /SADIA SNYDER [facility] Apr 23, 2024 06:36 AM [facility] CT ABDOMEN/ PELVIS: FLACA WEAVER [id number] -1950 M Exm Date: APR 23, 2024@06:36 Req Phys: MCKAY VICTOR [facility] Loc: 04-24-2024@10:25 Img Loc: OUTSOURCE CT Service: Unknown (Case [id number] COMPLETE) NON CT CT ABDOMEN/PELVIS (CT Detailed) CPT:02321 Reason for Study: OUTSIDE STUDY Clinical History: [...] Reporting Lab: [facility] [CLIA# [id number]] [place] [address] Accession [UID]: [id number] [[id number]] Received: Apr 21, 2024@08:16 Collection sample: URINE Collection date: Apr 21, 2024 07:28 Provider: ANANDA HUGGINS Comment on specimen: RECEIVED IN STERILE CUP Test(s) ordered: CULTURE & SUSCEPTIBILITY...... completed: Apr 22, 2024 * BACTERIOLOGY FINAL REPORT => Apr 22, 2024 08:38 TECH CODE: [id number] CULTURE RESULTS: NO GROWTH 24 HOURS Bacteriology Remark(s): THIS REPORT IS FINAL =--=--=--=--=--=--=--=--=--=--=--=- -=--=--=--=--=--=--=--=--=--=--=--= --=--=-- Performing Laboratory: Bacteriology Report Performed By: [facility] [CLIA# [id number]] [place] [address] [facility] Encounter Notes: All associated encounter notes This section contains the clinical notes associated to the Encounter. Date/Time Encounter Note(s) Provider Source Apr 23, 2024 08:24 AM [employer] MECHANIC REFER RAL NOTE: LOCAL TITLE: INTERFACILITY REFERRAL EEG TECHNICIAN. TRANSFER NOTE STANDARD TITLE: HE[employer]Y [employer] TRUCK MECHANIC REFERRAL NOTE DATE OF NOTE: APR 23, 2024@08:24 ENTRY DATE: APR 23, 2024@08:24:52 AUTHOR: BRIDGETTE ZAZUETA COSIGNER: URGENCY: STATUS: COMPLETED PATIENT ADDRESS: [address] [place] [address] PHONE: NEXT OF KIN Name/Address: XAVI WEAVER [facility] [address] Patient Elig: PRIMARY ELIGIBILTY CODE - NSC [place] Disabilities (If Applicable): RATED DISABILITIES - NONE FOUND Travel not authorized Patient/guardian consents to transfer. Referring physician certifies that benefit of transfer outways risk. To: [facility] From: Other Site: [facility] -------- Requested Date/Time: APR 23, 2024 08:24 Planned Arrival Date/Time: Mar@10:12.00 Current PCP: Primary Care Team: JUANITO PACT IRIS Primary Care Provider: JATINDER BENITEZ No Associate Provider Assigned. Sending Facility Provider/Title/Pager: Dr Covarrubias [phone] Nursing ED [phone] Accepting Facility Provider/Designee/Pager: Dr Maricel Quijano [phone] Diagnosis: Diverticulitis abscess along with fistula Reason [...] of Transfer: BLS Ambulance /es/ BRIDGETTE CHRISTIANSON flying instructor [employer] Aide Teacher Signed: 04/23/2024 08:58 BRIDGETTE ZAZUETA [facility]
--- OUTSIDE RECORDS SUMMARY | 2024-07-16 07:07 | XMS_ITS ---
Author Name [facility] [place] Organization [facility] [place] Address [address] [place] [address] Care Team Providers Care Chief Deputy Clerk/Bailiff Name Role Phone PREMA BENITEZ Primary Care Provider Unavail able Insurance [...] PART A Sep 29, 2016 PART A [id number] JUDY WEAVER PATIENT Selected Encounter This section includes the information on record at [place] for the Encounter. Date/Time Encounter Type Encounter Description Reason Pro vider Source Apr 23, 2024 11:20 AM Drainage of Peritoneal Cavity with Drain Dev, Perc Approach HOSPITALIZATION ICD-10-CM J43.9 Emphysema, unspecified TEAMNURIA IHAlex Encounter Template Text not used by [place] Assessments - Encounter Diagnoses This section includes the primary and secondary diagnoses documented for the Encounter. 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 Apr 26, 2024 01:55 PM SECONDARY Athscl heart disease of [place] coronary artery w/o ang pctrs [facility] Apr 26, 2024 01:55 PM SECONDARY Atrioventricular block, second degree [facility] Apr 26, 2024 01:55 PM SECONDARY Chronic diastolic (congestive) heart failure [facility] Apr 26, 2024 01:55 PM SECONDARY Emphysema, unspecified [facility] Apr 26, 2024 01:55 PM SECONDARY Hypertensive heart disease with heart failure [facility] Apr 26, 2024 01:55 PM SEC[address] Hypokalemia [facility] Apr 26, 2024 01:55 PM SECONDARY Obesity, unspecified [facility] Apr 26, 2024 01:55 PM SECONDARY Obstructive sleep apnea (adult) (pediatric) [facility] Apr 26, 2024 01:55 PM SECONDARY Vesicointestinal fistula [facility] Plan of Treatment: Future Appointments (+ 6 months) and Future Tests (+/- 45 days) The Plan of Treatment section includes future care activities for the patient from all [facility]. This section includes future appointments and future orders which are active, pending or scheduled. Future Appointments This section includes appointments that were scheduled to occur 6 months from the date of the Encounter, up to a maximum of 20 appointments. The data comes from all [facility]. Appointment Date/Time Appointment Type Appointme nt Facility Name Apr 27, 2024 02:30 PM AMBULATORY - NONE [place] [facility] May 02, 2024 10:00 AM AMBULATORY - SURGERY [place] [facility] May 04, 2024 09:00 AM AMBULATORY - NONE [place] [facility] May 07, 2024 08:45 AM AMBULATORY - [place]ICINE [place] [facility] May 08, 2024 02:00 PM AMBULATORY - NONE [place] [facility] May 09, 2024 07:30 AM AMBULATORY - SURGERY [place] [facility] May 11, 2024 01:00 PM AMBULATORY - NONE [place] [facility] May 11, 2024 03:30 PM AMBULATORY - NONE [place] [facility] May 15, 2024 08:30 AM AMBUL[place]ORY - [place]ICINE [place] [facility] May 16, 2024 07:45 AM AMBULATORY - SURGERY [place] [facility] May 22, 2024 07:30 AM AMBULATORY - NONE [place] [facility] May 22, 2024 05:30 PM AMBULATORY - NONE [place] [facility] May 25, 2024 08:22 AM AMBULATORY - NONE [place] [facility] [facility] May 25, 2024 09:00 AM AMBULATORY - NONE [facility] May 28, 2024 08:15 AM AMBULATORY - SURGERY [facility] BRENNANPreethi [facility] Jun 04, 2024 11:30 AM AMBULATORY - NONE [facility] Jun 08, 2024 11:00 AM AMBULATORY - SURGERY CARLOS BRENNANPreethi [facility] Jun 08, 2024 12:45 PM AMBULATORY - NONE [facility] HAL[facility] Jun 08, 2024 01:15 PM AMBULATORY - MEDICINE WILFREDO KHANNA [facility] Jun 08, 2024 01:45 PM AMBULATORY - SURGERY [facility] Active, Pending, and Scheduled Orders This section includes a listing of several types of active, pending, and scheduled orders, including clinic medications orders, diagnostic test orders, procedure orders and consult orders; where the start date of the order is 45 days before the date of the Encounter or 45 days after the date of theEncounter. The data comes from all [place] treatment facilities. Test Date/Time Test Type Test Details Facility Name Apr 26, 2024 10:10 AM Laboratory - Microbiology Order GRAM STAIN WOUND OTHER WC ONCE ~For Test: GRAM STAIN ~JUAN drain culture/gram stain [facility] Apr 26, 2024 10:10 AM Laboratory - Microbiology Order CULTURE & SUSCEPTIBILITY WOUND OTHER WC ONCE ~For Test: CULTURE & SUSCEPTIBILITY ~Culture sample from JUAN drain output [facility] May 28, 2024 12:00 AM Laboratory - Blood Bank Order TYPE & SCREEN - LAB BLOOD SP [facility] Lab Results: +/- 30 days of the encounter This section includes the Chemistry and Hematology Lab Results on record with [facility] for the patient. Radiology Reports and Pathology Reports are provided separately, in subsequent sections. Lab Results This section contains the Chemistry/Hematology Results that were resulted 30 days before or 30 daysafter the date of the Encounter. Date/Time Source Result Type Result - Unit Interpretation Reference Range Comment May 21, 2024 06:[address] [facility] BASIC METABOLIC PANEL+MG Specimen Type: PLASMA No comment entered. Ordering Provider: GOLDIE BENITEZ Report Released Date/Time: May 15, 2024 08:34 AM Reporting Lab: [facility] [id number] Performing Lab: [facility] [phone] CREATININE 0.9 mg/dL 0.7-1.2 UREA NITROGEN 18 mg/dL 8-26 GLUCOSE 126 mg/dL H 70-100 SODIUM 138 mmol/L 136-145 POTASSIUM 4.0 mmol/L 3.5-5.1 CHLORIDE 105 mmol/L 98-107 CO2 24 mmol/L 22-29 CALCIUM 9.8 mg/dL 8.4-10.2 MAGNESIUM 2.0 mg/dL 1.6-2.6 ANION GAP 9 mmol/L 5-15 .CREAT EGFR(CKD-EPI) >90 >60 May 04, 2024 08:[address] [facility] BASIC METABOLIC PANEL+MG Specimen Type: PLASMA No comment entered. Ordering Provider: GOLDIE BENITEZ Report Released Date/Time: May 03, 2024 12:52 PM Reporting Lab: [facility] [phone] Performing Lab: [facility] [phone] CREATININE 0.7 mg/dL 0.7-1.2 UREA NITROGEN 13 mg/dL 8-26 GLUCOSE 91 mg/dL 70-100 SODIUM 141 mmol/L 136-145 POTASSIUM 3.6 mmol/L 3.5-5.1 CHLORIDE 109 mmol/L H 98-107 CO2 25 mmol/L 22-29 CALCIUM 8.9 mg/dL 8.4-10.2 MAGNESIUM 2.0 mg/dL 1.6-2.6 ANION GAP 7 mmol/L 5-15 .CREAT EGFR(CKD-EPI) >90 >60 Apr 26, 2024 07:[address] [facility] BASIC METABOLIC PANEL+MG Specimen Type: PLASMA No comment entered. Ordering Provider: JONO RANDOLPH Report Released Date/Time: Apr 25, 2024 02:50 PM Reporting Lab: [facility] [address] Performing Lab: [facility] [address] CREATININE 0.7 mg/dL 0.7-1.2 UREA NITROGEN 15 [...] Apr 25, 2024 05:04 PM Reporting Lab: [facility] [address] Performing Lab: [facility] [address] CREATININE 0.7 mg/dL 0.7-1.2 UREA NITROGEN 15 [...] Apr 24, 2024 12:37 PM Reporting Lab: [facility] [address] Performing Lab: [facility] [address] CREATININE 0.7 mg/dL 0.7-1.2 UREA NITROGEN 14 [...] Apr 24, 2024 12:37 PM Reporting Lab: [facility] [address] Performing Lab: [facility] [address] CREATININE 0.7 mg/dL 0.7-1.2 UREA NITROGEN 16 [...] PLASMA Comment: Critical Value Reported To: Emerita Cunningham RN 04-24-24@[address] [place] [address]. Critical value report confirmed. Ordering Provider: AARON VICTOR Report Released Date/Time: Apr 23, 2024 05:30 PM Reporting Lab: [facility] [address] Performing Lab: [facility] [address] CREATININE 0.7 mg/dL 0.7-1.2 UREA NITROGEN 16 [...] Apr 23, 2024 05:30 PM Reporting Lab: [facility] [address] Performing Lab: [facility] [address] WBC 10.49 10*3/uL 4.0-11.0 RBC 3.83 10*6/uL [...] Apr 23, 2024 12:05 PM Reporting Lab: [facility] [address] Performing Lab: [facility] [address] LACTIC ACID 1.5 mmol/L 0.5-2.2 Apr 23, 2024 01:[address] [facility] PROTHROMBIN TIME/INR Specimen Type: PLASMA No comment entered. Ordering Provider: AARON VICTOR Report Released Date/Time: Apr 23, 2024 12:05 PM Reporting Lab: [facility] [address] Performing Lab: [facility] [address] .INR 1.2 H 0.8-1.1 .PT 14.5 s H 9.4-12.5 Apr 23, 2024 01:[address] [facility] ACT PART THROMBO TIME Specimen Type: PLASMA No comment entered. Ordering Provider: AARON VICTOR Report Released Date/Time: Apr 23, 2024 12:05 PM Reporting Lab: [facility] [address] Performing Lab: [facility] [address] APTT 29.3 s 25.1-36.5 Apr 23, 2024 01:[address] [facility] COMPREHENSIVE METABOLIC PANEL+MG Specimen Type: PLASMA No comment entered. Ordering Provider: AARON VICTOR Report Released Date/Time: Apr 23, 2024 12:05 PM Reporting Lab: [facility] [address] Performing Lab: [facility] [address] CREATININE 0.7 mg/dL 0.7-1.2 UREA NITROGEN 19 [...] Apr 23, 2024 12:05 PM Reporting Lab: [facility] [address] Performing Lab: [facility] [address] WBC 12.50 10*3/uL H 4.0-11.0 RBC 4.07 [...] Apr 21, 2024 07:37 AM Reporting Lab: [facility] [address] Performing Lab: [facility] [address] URINE COLOR COLORLESS SPECIFIC GRAVITY 1.009 1.003-1.03 [...] 2024 01:59 PM 211.1 30 [place] [facility] Social History: Smoking Status (Most current) and Tobacco Use (All prior to encounter date) This section includes the most current, and the historical, smoking and tobacco- related health factors from the [place] facility where the Encounter took place. Current Smoking Status This section includes the most current smoking, or tobacco-related health factor, from the [place] facility where the Encounter took place. Date/Time Current Smoking Status Comment Facil ity May 06, 2023 11:30 AM [facility]-TOBACCO FORMER USER [facility] Tobacco Use History This section includes a history of the smoking, or tobacco-related health factors, that were collected on or before the date of the Encounter. The data comes from the [place] facility where the Encounter took place. Date/Time [...] ALL of a patient's completed or amended [place] Advance and Rescinded Directives. The entries below indicate that a directive exists for the patient, but an actual copy is not included with this document. The data comes from all [facility]. Date Advance Directives Provider Source Mar 23, 2016 CLINICAL WARNING [facility] Radiology Reports: +/- 30 days [...] the Encounter. The data comes from all [place] treatment facilities. Date/Time Radiology Report Provider Source May 11, 2024 12:39 PM IR FISTULOGRAM / S INOGRAM (P): FLACA WEAVER [id number] -1950 M Exm Date: MAY 11, 2024@12:39 Req Phys: PALMIRA GRAVES Loc: [facility] C/R FOLLOW-UP CLINIC (Req' Img Loc: INTERVENTIONAL RADIOLOGY Service: [place] [address] (Case [id number] COMPLETE) IR INJECTION FOR SINOGRAM DIAGNOS(ANI Detailed) CPT:13030 Contrast Media : Non-ionic Iodinated Reason for Study: s/p drain placement for diverticular abscess- assess for drain (Case [id number] COMPLETE) IR FISTULOGRAM OR SINOGRAM (ANI Detailed) CPT:61886 Contrast Media : unspecified contrast media (Case [id number] COMPLETE) IR DRAINAGE CATHETER SUPPLY (ANI Detailed) CPT:C1729 Clinical History: IS NOT under investigation for COVID-19 or is COVID-19 negative s/p drain placement for diverticular abscess- assess for drain removal Contact number for responsible provider who can be reached for any questions or notifications of critical findings: [phone] Palmira Graves MD LAST CREATININE 0.7 (05/04/24) Report Status: Verified Date Reported: MAY 11, 2024 Date Verified: MAY 11, 2024 Book Sewer E-Sig:/ES/JOAO ESCALONA MD Report: PROCEDURES Abdominal drain check CLINICAL HISTORY: Diverticular abscess COMPARISONS: 04/23/2024, 04/24/2024, 05/11/2024 STAFF RADIOLOGIST: Joao Escalona MD Dose (Air Kerma): 9.2 mGy [...] with sinogram in IR. Primary Interpreting Staff: JOAO ESCALONA MD, INTERVENTIONAL RADIOLOGIST (Book Sewer) /JOOA VELAZCO [facility] May 11, 2024 11:[address] (AP) ABDOMEN/PE LVIS (P): FLACA WEAVER [id number] -1950 M Exm Date: MAY 11, 2024@11:40 Req Phys: PALMIRA GRAVES Loc: [facility] C/R FOLLOW-UP CLINIC (Req' Img Loc: CT IMAGING Service: [place] [address] (Case [id number] COMPLETE) CT (AP) ABDOMEN/PELVIS W CONTRAST(CT Detailed) CPT:26745 Contrast Media : Non-ionic Iodinated Reason for [...] any questions or notifications of critical findings: [phone] Palmira Graves MD LAST 3: Collection DT Specimen Test [...] PLASMA .CREAT EGFR(CKD-E >90 Ref: >=60 Allergies: ([facility] only) TERAZOSIN (Mar 13, 2015) Report Status: Verified Date Reported: MAY 11, 2024 Date Verified: MAY 11, 2024 Book Sewer E-Sig:/ES/LISA PENDLETON MD Report: CT abdomen and [...] Primary Interpreting Staff: LISA PENDLETON MD, RADIOLOGIST (Book Sewer) /JRT LISA PENDLETON [facility] Apr 24, 2024 02:13 PM ABSCESS DRAIN PLAC EMENT PERITONEAL (P): MEGFLACA YAMIL [id number] -1950 M Exm Date: APR 24, 2024@14:13 Req Phys: TAURUS WOOD Loc: 3K04-24-2024@16:07 Img Loc: INTERVENTIONAL RADIOLOGY Service: PRIMARY CARE [place] [address] (Case [id number] COMPLETE) IR PERITONEAL/RETROPERITONEAL PER(ANI Detailed) CPT:32874 Reason for Study: diverticular abscess Clinical History: [...] any questions or notifications of critical findings: [id number] If ordering provider is a trainee, enter the name and contact information of the responsible staff physician. Palmira Graves MD LAST CREATININE 0.7 (04/23/24) Report Status: Verified Date Reported: APR 24, 2024 Date Verified: APR 24, 2024 Book Sewer E-Sig:/ES/SADIA STEPHENSON MD Report: PROCEDURES: Placement of abscess drainage catheter with CT guidance CLINICAL HISTORY: Diverticular abscess COMPARISONS: CT 04/23/2024 STAFF RADIOLOGIST: Renate Stephenson MD RESIDENT: Simran Canales MD Medications: The patient was placed on [...] anesthesia. Using real-time CT fluoroscopy, a 5 Tanzanian Yueh catheter was advanced into the collection in the left lower quadrant. A wire was coiled in the collection. The tract into the collection was dilated to accommodate the 12 Tanzanian locking pigtail drainage catheter. The catheter was secured to the skin with monofilament suture and connected to JUAN bulb suction. Impression: Successful placement of a 12 Tanzanian locking pigtail drainage catheter in the left lower quadrant abscess. This catheter is connected to JUAN bulb suction with flushes, as ordered. I, SADIA STEPHENSON, have reviewed the images and report. Primary Interpreting Staff: SADIA STEPHENSON MD, RADIOLOGIST (Book Sewer) Primary Interpreting Resident: LUCAS CANALES MD, TRANSPORT COMPANY MANAGER /SADIA SNYDER [facility] Apr 24, 2024 02:[address] NEEDLE PLACEMEN T (P): MEGFLACA YAMIL [id number] -1950 M Exm Date: APR 24, 2024@14:11 Req Phys: TAURUS WOOD Loc: 3KS04-24-2024@16:07 [facility] Loc: CT IMAGING Service: PRIMARY CARE [place] [address] (Case [id number] COMPLETE) CT SCAN FOR NEEDLE PLACEMENT (CT Detailed) CPT:33583 Reason for Study: diverticular abscess Clinical History: Report Status: Verified Date Reported: APR 24, 2024 Date Verified: APR 24, 2024 Book Sewer E-Sig:/ES/SADIA STEPHENSON MD Report: PROCEDURES: Placement of abscess drainage catheter with CT guidance CLINICAL HISTORY: Diverticular abscess COMPARISONS: CT 04/23/2024 STAFF RADIOLOGIST: Renate Stephenson MD RESIDENT: Simran Canales MD Medications: The patient was placed on [...] anesthesia. Using real-time CT fluoroscopy, a 5 Tanzanian Yueh catheter was advanced into the collection in the left lower quadrant. A wire was coiled in the collection. The tract into the collection was dilated to accommodate the 12 Tanzanian locking pigtail drainage catheter. The catheter was secured to the skin with monofilament suture and connected to JUAN bulb suction. Impression: Successful placement of a 12 Tanzanian locking pigtail drainage catheter in the left lower quadrant abscess. This catheter is connected to JUAN bulb suction with flushes, as ordered. I, SADIA STEPHENSON, have reviewed the images and report. Primary Interpreting Staff: SADIA STEPHENSON MD, RADIOLOGIST (Book Sewer) Primary Interpreting Resident: LUCAS CANALES MD, TRANSPORT COMPANY MANAGER /SADIA SNYDER [facility] Apr 23, 2024 06:[address] ABDOMEN/ PELVIS: FLACA WEAVER [id number] -1950 M Exm Date: APR 23, 2024@06:36 Req Phys: MCKAY VICTOR Loc: 04-24-2024@10:25 [facility] Loc: OUTSOURCE CT Service: Unknown (Case [id number] COMPLETE) NON [facility] CT ABDOMEN/PELVIS (CT Detailed) CPT:14441 Reason for Study: OUTSIDE STUDY Clinical History: OUTSIDE STUDY Report Status: Electronically Filed Date Reported: APR 24, 2024 Report: This is an outside Imaging study and/or report imported for continuity of patient care. This Imaging study and/or report was not reviewed or verified by a PA Radiologist. Impression: This is an outside Imaging study and/or report imported for continuity of patient care. This Imaging study and/or report was not reviewed or verified by a [place] Radiologist. Primary Diagnostic Code: VERIFIED BY: / [...] the Encounter. The data comes from all [place] treatment facilities. Date/Time Pathology Report Provider Source Apr 21, 2024 07:28 AM LR MICROBIOLOGY RE PORT: Reporting Lab: [facility] [CLIA# [id number]] [place] [address] Accession [UID]: [id number] [[id number]] Received: Apr 21, 2024@08:16 Collection sample: URINE Collection date: Apr 21, 2024 07:28 Provider: ANANDA HUGGINS Comment on specimen: RECEIVED IN STERILE CUP Test(s) ordered: CULTURE & SUSCEPTIBILITY...... completed: Apr 22, 2024 * BACTERIOLOGY FINAL REPORT => Apr 22, 2024 08:38 TECH CODE: [id number] CULTURE RESULTS: NO GROWTH 24 HOURS Bacteriology Remark(s): THIS REPORT IS FINAL =--=--=--=--=--=--=--=--=--=--=--=- -=--=--=--=--=--=--=--=--=--=--=--= --=--=-- Performing Laboratory: Bacteriology Report Performed By: [facility] [CLIA# [id number]] [place] [address] [facility] Encounter Notes: All associated encounter notes This section contains the clinical notes associated to the Encounter. Date/Time Encounter Note(s) Provider Source Apr 26, 2024 01:55 PM DISCHARGE SUMMARY: LOCAL TITLE: Discharge Summary STANDARD TITLE: DISCHARGE SUMMARY DICT DATE: APR 26, 2024@15:39 ENTRY DATE: APR 26, 2024@15:40:38 DICTATED BY: GERARD RANDOLPH ATTENDING: DODIE QUIÑONEZ URGENCY: routine STATUS: COMPLETED [...] 04/24 CONSULTS: Colorectal Surgery Interventinal Radiology EP enterprise project manager BRIEF SUMMARY OF H&P: 73 year old man with PMHx of reoccuring diverticulitis, HFpEF, and CAD who was transferred from [facility] after CT showed complicated diverticulitis with a 7.4cm x 4.2cm abscess and new colovesicular fistula. On admission, pt noted to be hemodynamically stable w/o sepsis, but significantly hypokalemic. HOSPITAL COURSE BY PROBLEM: #Complicated diverticulitis #Large abscess #[place]-vesicular fistula Pt was noted to be aspetic and vitally stable w/ nml diet throughout his stay. Colorectal surgery evaluated pt and determined no acute surgery. IR guided drainage catheter placed on 04/24 and noted to be CDI w/ brownish discharge. Tracey placed for feculuent output. Plan from colorectal [...] to discuss drain output and possible sigmoidectomy. Tracey and drain supplies ordered and sent home [...] of care for this . /alexi/ GERARD RANDOLPH Signed: 04/26/2024 16:18 /alexi/ DODIE QUIÑONEZ MD STAFF PHYSICIAN - HOSPITALIST Cosigned: 05/01/2024 08:30 Receipt Acknowledged By: 05/01/2024 15:54 /alexi/ Prema Benitez MD Physician GERARD RANDOLPH [facility] Apr 26, 2024 12:44 PM NURSING DISCHARGE NOTE: LOCAL TITLE: [place] NURSING DISCHARGE SUMMARY STANDARD TITLE: NURSING DISCHARGE NOTE DATE OF NOTE: APR 26, 2024@12:44 ENTRY DATE: APR 26, 2024@12:44:26 AUTHOR: ADENIKE CHOWDHURY EXP COSIGNER: URGENCY: STATUS: COMPLETED Nursing Discharge Summary Home Discharge date and time: Mar Accompanied by: Family Ambulatory, Wheelchair Transportation: Other (specify): Family is picking up patient Verify that the Contact Name and Phone Number are correct: FLACA WEAEVR Condition: Alert, Oriented Skin Condition: Intact Incision: [...] or re-constructible to any degree. /alexi/ Adenike Chowdhury, chief resource officer nurse, SICU Signed: 04/26/2024 12:[address] [facility] Apr 26, 2024 12:30 PM EDUCATION DISCHARGE NOTE: LOCAL TITLE: EDUCATION NURSING DISCHARGE INSTRUCTIONS STANDARD TITLE: EDUCATION DISCHARGE NOTE DATE OF NOTE: APR 26, 2024@12:30 ENTRY DATE: APR 26, 2024@12:32:43 AUTHOR: ADENIKE CHOWDHURY EXP COSIGNER: URGENCY: STATUS: COMPLETED IMPORTANT PHONE NUMBERS: IF YOU HAVE A LIFE THREATENING EMERGENCY CALL 911 If you have questions about anything related to your inpatient care at the [facility] or your future care in the [facility], call the Call Center or After Hour numbers listed below. If you receive care at another [place] facility or with a community provider, you will need to call them for questions about your future care. -Call Center Tuesday-Tuesday, 7:30-4:30 at [phone] or Toll Free -After Hours- toll-free -Outpatient Pharmacy - -Verification of Appointments for the following month - *'S CRISIS LINE NUMBER IS (TALK)* Discharge from ICU, Acute Care, Acute Rehab, or CLC C-SSRS Screening Cloud Suicide Severity Rating Scale (C-SSRS) screener 1. [...] given on: Other diagnosis/instructions: Care of indwelling traecy and JUAN drain Patient and/or other caregiver has had an opportunity to participate in the development of the discharge plan. The patient had an opportunity to ask questions. While in the hospital you were treated for: diverticulitis w/colovesical fistula and adjacent abscess Primary Care Team: Primary Care Team: JUANITO PACT IRIS *WH* Primary Care Provider: PREMA BENITEZ No Associate Provider Assigned. Attending Physician: DODIE QUIÑONEZ You are being discharged to: Home Phone number you can be contacted at for the next 2 weeks: [phone] Your diet is Cardiac diet Activity: Bathing: per colorectal When you go home you will need: Treatments: Catheter care Other: JUAN drain care Supplies: Dressing supplies: Drain sponges Paper tape Catheter supplies: Tracey bag Leg bag General supplies: Alcohol pads 5 and 10 ml syringes Continuing care needs: If you receive care at [facility] you will need to call the Primary Care Call Center number at [phone]. If you receive care at another PA facility or community provider, you will need to call them to arrange your follow up care. For surgical patients - If you don't receive a follow up clinic appointment within a week, please call the Call Center at [phone]. Future appointments: 04/27/2024 14:30 [facility] ULTRASOUND AM INPATIENT APPOINTMENT 05/02/2024 10:00 [facility] C/R FOLLOW-UP CLINIC INPATIENT APPOINTMENT A copy of these instructions has been given to: Patient IM - Immunizations ADMINISTERED Immunization Series Date Facility Reaction Info COVID-19 (PFIZER), MRNA, LNP-S, * 1 10/25/2022 [place] COVID-19 (PFIZ[place]), MRNA, LNP-S, * 01/21/2022 [facility] [facility] COVID-19 ([employer] P's), MRNA, LNP-S, * 3 07/10/2021 [place]* <C> [...] Type: Hospital Discharge Provider Completing Summary: Dr. Randolph Attending Physician: Dr. Quiñonez Discharge Diagnosis: Complicated [...] No Special Transportation Needs: None /es/ Nou , chief resource officer nurse, SICU Signed: 04/26/2024 12:44 ,[address] [facility] Apr 26, 2024 07:00 AM NURSING NOTE: [...] DEG AVB, BBB & PROLONGED QT HR:42 AK Int:0.288 QRS Int:0.122 QT Int:0.541 QTc Int:0.453 Telemetry leads monitored this shift: II and V lead Alarm parameters verified this shift Continuous Oximetry Montior: DAY Shift Continuous oximetry initiation date/time: Mar@12:17. Oximetry indication: aspiration risk Respiratory history: lung nodules, JUANJOSE Continuous oximetry readin-100% Alarm parameters verified this shift. Accuracy of oxygen reading verified by waveform and/or review. /alexi/ GEE ERICKSON History Teacher Signed: 04/26/2024 08:[address] [facility] Apr 26, 2024 05:01 AM NURSING NOTE: LOCAL TITLE: TELEMETRY AND OXIMETRY CENTRALIZED NOTE STANDARD TITLE: NURSING NOTE DATE OF NOTE: APR 26, 2024@05:01 ENTRY DATE: APR 26, 2024@05:01:10 AUTHOR: CHOCO WOODARD EXP COSIGNER: URGENCY: STATUS: COMPLETED TELEMETRY AND OXIMETRY CENTRALIZED NOTE Has ADDENDA Telemetry (Cardiac) Monitor: Motor Assembler Telemetry initiation date/time: Mar@12:17. 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 Parameter set/change by prior shift. Continuous Oximetry Montior: Motor Assembler Continuous oximetry initiation date/time: Mar@12:17. Oximetry indication: aspiration risk Respiratory history: lung nodules, JUANJOSE Continuous oximetry readin-98% Alarm parameters verified this shift and set at: 90-105. Accuracy of oxygen reading verified by waveform and/or review. /alexi/ CHOCO WOODARD GEE Signed: 04/26/2024 05:05 04/26/2024 ADDENDUM STATUS: COMPLETED Cardiac History: diverticulitis, HTN, AAA, CAD s/p PCI with EVIE to proximal RCA & mid RCA, HFpEF, concern for 2nd degree AV block. /alexi/ CHOCO WOODARD GEE Signed: 04/26/2024 05:[address] [facility] Apr 26, 2024 03:46 AM NURSING INPATIENT NOTE: LOCAL TITLE: [facility] NURSING PROGRESS NOTE STANDARD TITLE: NURSING INPATIENT NOTE DATE OF NOTE: APR 26, 2024@03:46 ENTRY DATE: APR 26, 2024@03:46:30 AUTHOR: GERARD OVERTON EXP COSIGNER: URGENCY: STATUS: COMPLETED Nursing Shift Note Nursing care provided from [phone] Highlights from shift: A&O x4, calls appropriately, able to make needs known. Denies chest pain, SOB, headache, nausea, new numbness/tingling, dizziness vision changes. Endorses bladder spasm-related pain, managed with tylenol and pyridium. Tele in place reading SB with 1st degree block. VS within parameters, stable on room air. Tracey in place and patent, draining yellow and [...] behavioral concerns. No acute concerns overnight. See [facility] for detailed [facility], Education provided on medication/cares this shift as needed Skin Interventions performed this shift: Patient turned [id number] or as appropriate while in bed. Patient's heels elevated with pressure relief boots or pillows under calves. Patient kept clean and dry with barrier cream applied as ordered. Device(s) removed and skin underneath was inspected. Head of Bed kept below 30 degrees unless otherwise ordered. /alexi/ GERARD OVERTON RN Signed: 04/26/2024 06:[address] [facility] Apr 25, 2024 07:22 PM NURSING INPATIENT NOTE: LOCAL TITLE: [facility] NURSING PROGRESS NOTE STANDARD TITLE: NURSING INPATIENT NOTE DATE OF NOTE: APR 25, 2024@19:22 ENTRY DATE: APR 25, 2024@19:23:05 AUTHOR: OWEN GUERRERO EXP COSIGNER: URGENCY: STATUS: COMPLETED Nursing Shift Note Nursing care provided from [phone] Highlights from shift:Patient was mad in the beginning of the shift when he was talking with our traffic i manager re: his complained. Otherwise he had been cooperative with meds and treatment. Patient alert and oriented x3. VSS, afebrile. tele shows SB with first degree AVB, HR upper 40's-60's. C/o bladder pain rated 6-7/10. Tylenol 650mg po and pyridium tab given with some pain down to 4-5/10. Patient was up in the chair every meal. No further behavioral episode. Tracey patent with yellow to brown ouput. JUAN [...] tubing, urinary catheters, cell phone etc.) Comment: JUAN tracey drain, cell phone Localized abnormality: Other: Location(s): JUAN drain site Skin Interventions performed this shift: Other: able to ambulated and repositioned /alexi/ OWEN GUERRERO RN STAFF NURSE Signed: 04/25/2024 19:[address] [facility] Apr 25, 2024 03:29 PM NURSING NOTE: LOCAL TITLE: TELEMETRY AND OXIMETRY CENTRALIZED NOTE STANDARD TITLE: NURSING NOTE DATE OF NOTE: APR 25, 2024@15:29 ENTRY DATE: APR 25, 2024@18:14:42 AUTHOR: ANI CONN EXP COSIGNER: URGENCY: STATUS: COMPLETED Telemetry (Cardiac) Monitor: Evening Shift Telemetry initiation date/time: Mar@12:17. Telemetry indication: critical care Cardiac History: diverticulitis, HTN Cardiac rhythm interpretation: junctional rhythm w/ BBB HR:47 AK Int:n/a QRS Int:.12 QT Int:.60 QTc Int:.53 Telemetry leads monitored this shift: II and V lead Alarm parameters verified this shift Continuous Oximetry Montior: Evening Shift Continuous oximetry initiation date/time: Mar@12:17. Oximetry indication: aspiration risk Respiratory history: lung nodules, JUANJOSE Continuous oximetry readin-97% Alarm parameters verified this shift. Accuracy of oxygen reading verified by waveform and/or review. /jerome CONN DIRECTOR OF GIFT PLANNING Signed: 04/25/2024 18:[address] [facility] Apr 25, 2024 02:11 PM COLON & RECTAL SURGERY NOTE: LOCAL TITLE: COLON-RECTAL INPT PROGRESS NOTE STANDARD TITLE: COLON & RECTAL SURGERY NOTE DATE OF NOTE: APR 25, 2024@14:11 ENTRY DATE: APR 25, 2024@14:11:43 AUTHOR: JULIO ERVIN EXP COSIGNER: URGENCY: STATUS: COMPLETED COLORECTAL BRIEF NOTE Patient now with IR drain with output and resolving leukocytosis with antibiotic regimen. Patient stable from a colorectal surgery standpoint for discharge home so long as he has an effective oral antibiotic regimen, drain teaching, and scheduled follow up (order placed for 05/02). Patient should discharge home with tracey given his existing fistula and monitor feculent output through tracey. Plans to discuss drain, utility of further scanning, and eventual operative options at outpt follow up. Colorectal surgery will sign off at this time. Please page with further questions or concerns. Julio Ervin, DO PGY2 General Surgery /es/ JULIO ERVIN Resident - Surgery Signed: 04/25/2024 14:[address] [facility] Apr 25, 2024 02:01 PM INTERNAL MEDICINE INPATIENT NOTE: LOCAL TITLE: MEDICINE INPT PROGRESS NOTE STANDARD TITLE: INTERNAL MEDICINE INPATIENT NOTE DATE OF NOTE: APR 25, 2024@14:01 ENTRY DATE: APR 25, 2024@14:01:13 AUTHOR: GERARD RANDOLPH EXP COSIGNER: URGENCY: STATUS: COMPLETED INPATIENT PROGRESS NOTE Subjective: Patient very upset this morning with his cares overnight. In particular he is frustrated with the fact that they flushed his JUAN drain and caused feces to come out of his tracey. States he is interested in contacting a live games dealer about his poor care here at the [facility]. Otherwise doing fairly well. 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 -Plan for discharge tomorrow -Continue pip-tazo for now, will switch to Augementin BID outpatient until clinic visit -Per surgery: Keep Tracey, Drain in place until outpt visit in one week that surgery will set up. At that time they will evaluate drain output and decide on imaging/surgery for the colovesicular fistula -Nursing to provide teaching regarding Tracey, Drain management - Drain to be flushed [...] Spironlactone - Restarted home Empagliflozin - Hold PROMOTIONAL MARKETING AGENT Lasix, lisinopril HCTZ (hypokalemia as above) mobitz [...] above Decision maker: Significant other's son Kirit Stephenson. . See admission staff note for further details. I have seen and discussed the patient with my attending, , who agrees with the above assessment plan. Additional Secondary Diagnoses /alexi/ GERARD RANDOLPH Signed: 04/25/2024 14:[address] [facility] Apr 25, 2024 07:24 AM NURSING NOTE: LOCAL TITLE: TELEMETRY AND OXIMETRY CENTRALIZED NOTE STANDARD TITLE: NURSING NOTE DATE OF NOTE: APR 25, 2024@07:24 ENTRY DATE: APR 25, 2024@13:53:41 AUTHOR: ANI CONN EXP COSIGNER: URGENCY: STATUS: COMPLETED Telemetry (Cardiac) Monitor: Day Shift Telemetry initiation date/time: Mar@12:17. Telemetry indication: critical care Cardiac History: diverticulitis, HTN Cardiac rhythm interpretation: junctional rhythm w/ BBB HR:50 AK Int:n/a QRS Int:.12 QT Int:.55 QTc Int:.50 Telemetry leads monitored this shift: II and V lead Alarm parameters verified this shift Continuous Oximetry Montior: Day Shift Continuous oximetry initiation date/time: Mar@12:17. Oximetry indication: aspiration risk Respiratory history: lung nodules, JUANJOSE Continuous oximetry readin-98% Alarm parameters verified this shift. Accuracy of oxygen reading verified by waveform and/or review. /alexi/ ANI CONN DIRECTOR OF GIFT PLANNING Signed: 04/25/2024 13:[address] [facility] Apr 25, 2024 01:25 AM NURSING INPATIENT NOTE: LOCAL TITLE: [facility] NURSING PROGRESS NOTE STANDARD TITLE: NURSING INPATIENT NOTE DATE OF NOTE: APR 25, 2024@01:25 ENTRY DATE: APR 25, 2024@01:26:02 AUTHOR: ALFRED REYNA EXP COSIGNER: URGENCY: STATUS: COMPLETED Nursing Shift Note Nursing care provided from [phone] Highlights from shift:A&Ox4,afebrile,LZ425q -150s/60s-70s,HR44-56,O294- 98% (RA),RR 18.Heart sounds abnormal,lungs-UL clear,LL decreased. Tracey in place. JUAN drain in place, dressing [...] angry. Asked if I had seen his tracey bag & that it had shit in it. Did not want commercial insurance underwriter to dump bag so that he could show provider. Made several comments about care previous RN provided & appeared to believe she had fucked up his drain. Patient made comments that hospital/care being handled poorly & calling a live games dealer by end of the day. Patient stated [...] below 30 degrees unless otherwise ordered. /alexi/ ALFRED REYNASALES LEAD NURSE, JUNG 3K Signed: 04/25/2024 07:[address] [facility] Apr 24, 2024 11:10 PM NURSING NOTE: LOCAL TITLE: TELEMETRY AND OXIMETRY CENTRALIZED NOTE STANDARD TITLE: NURSING NOTE DATE OF NOTE: APR 24, 2024@23:10 ENTRY DATE: APR 25, 2024@00:52:51 AUTHOR: NORMA JORDAN EXP COSIGNER: URGENCY: STATUS: COMPLETED TELEMETRY AND OXIMETRY CENTRALIZED NOTE Has ADDENDA Telemetry (Cardiac) Monitor: Motor Assembler Telemetry initiation date/time: Mar@12:17. Telemetry indication: Critical care Cardiac History: HTN, AAA, CAD w/stent x2 Cardiac rhythm interpretation: Sinus bradycardia w/1st degree AVB, BBB & PVC HR:48 AK Int:.243 QRS Int:.12 QT Int:.503 QTc Int:.449 Telemetry leads monitored this shift: II and V lead Alarm parameters verified this shift Continuous Oximetry Montior: Motor Assembler Continuous oximetry initiation date/time: Mar@12:17. Oximetry indication: Aspiration risk Respiratory history: JUANJOSE, Lung nodules Continuous oximetry readin-98 Alarm parameters verified this shift. Accuracy of oxygen reading verified by waveform and/or review. /jerome JORDAN [facility] Signed: 04/25/2024 00:56 04/25/2024 ADDENDUM STATUS: COMPLETED Notified nurse Rand Keith patient had 9 Idioventricular beats at 0146. /alexi/ NORMA JORDAN [facility] Signed: 04/25/2024 04:[address] [facility] Apr 24, 2024 07:23 PM NURSING INPATIENT NOTE: LOCAL TITLE: [facility] NURSING PROGRESS NOTE STANDARD TITLE: NURSING INPATIENT NOTE DATE OF NOTE: APR 24, 2024@19:23 ENTRY DATE: APR 24, 2024@19:23:30 AUTHOR: JOSE MILLARD EXP COSIGNER: URGENCY: STATUS: COMPLETED [facility] NURSING PROGRESS NOTE Has ADDENDA Nursing Shift Note Nursing care provided from [phone] Highlights from shift: Afebrile, A&OX4, return to the unit around 1615. Pt irritable at times and argumentative. Pt was told to do bed rest for 4 hours till 8pm. Pt ignored RN and stood up and put on PJs. Pt dangled at the edge of the bed and ate dinner. SB. VSS on RA. Potassium replacement given. Tracey draining christianson-colored urine with sediments in it. [...] RN RN Signed: 04/25/2024 00:[address] [facility] Apr 24, 2024 03:59 PM PROCEDURE NOTE: [...] personnel present during procedure including vendors: Napoleon RT, Anup BOYER, Mundo fraser RELEASED TO: Jung Verbal RN to RN report given including delirium risk: Yes IV Access: Continued Patient and/or family given opportunity to ask questions and have questions answered. Patient and/or family stated understanding of post procedure instructions. Events Reporting: No adverse events were noted during the procedure. /jerome NUÑEZ RN Registered Nurse Signed: 04/24/2024 16:[address] [facility] Apr 24, 2024 03:57 PM INTERVENTIONAL RADIOLOGY PROCEDURE NOTE: LOCAL TITLE: INTERVENTIONAL RADIOLOGY PHYSICIAN PROCEDURE NOTE STANDARD TITLE: INTERVENTIONAL RADIOLOGY PROCEDURE NOTE DATE OF NOTE: APR 24, 2024@15:57 ENTRY DATE: APR 24, 2024@15:57:17 AUTHOR: LUCAS CANALES EXP COSIGNER: URGENCY: STATUS: COMPLETED Procedure Note Procedure: LLQ abscess drain placement Patient was identified by using full name and social security number. Procedure(s) to be performed was(were) discussed with patient and verified to be correct. Patient and/or family provided with appropriate education and patient and/or family acknowledged understanding. Procedure Date: Mar Attending physician performing the procedure: Sadia Stephenson Resident present:Lucas Canales Pre-Procedure diagnosis:diverticular abscess Post-Procedure diagnosis: Same as pre-op diagnosis Specimens Obtained: No specimen obtained Estimated blood loss: <25ml No immediate complications /es/ LUCAS CANALES MD TRANSPORT COMPANY MANAGER Signed: 04/24/2024 15:[address] [facility] Apr 24, 2024 03:52 PM NURSING NOTE: LOCAL TITLE: TELEMETRY AND OXIMETRY CENTRALIZED NOTE STANDARD TITLE: NURSING NOTE DATE OF NOTE: APR 24, 2024@15:52 ENTRY DATE: APR 24, 2024@17:43:33 AUTHOR: ANI CONN EXP COSIGNER: URGENCY: STATUS: COMPLETED Telemetry (Cardiac) Monitor: Evening Shift Telemetry initiation date/time: Mar@12:17. Telemetry indication: critical care Cardiac History: diverticulitis, HTN Cardiac rhythm interpretation: junctional rhythm w/ BBB HR:46 AK Int:n/a QRS Int:.14 QT Int:.60 QTc Int:.55 [...] by waveform and/or review. /alexi/ ANI CONN DIRECTOR OF GIFT PLANNING Signed: 04/24/2024 17:[address] [facility] Apr 24, 2024 02:50 PM PROCEDURE NOTE: LOCAL TITLE: MODERATE SEDATION PRE-SEDATION NOTE STANDARD TITLE: PROCEDURE NOTE DATE OF NOTE: APR 24, 2024@14:50 ENTRY DATE: APR 24, 2024@14:50:26 AUTHOR: TALIB NUÑEZ COSIGNER: URGENCY: STATUS: COMPLETED MODERATE SEDATION RN [...] Registered Nurse Signed: 04/24/2024 14:51 T[address] [facility] Apr 24, 2024 02:39 PM CONSENT: LOCAL [...] full consent document can be accessed through [facility]. 3. Patient name: FLACA WEAVER 4. The patient HAS decision-making capacity. 5. [...] this treatment/procedure. 10. Practitioner obtaining consent: Lucas Canales MD 11. Supervising practitioner: Sadia Stephenson MD 12. Practitioner(s) performing or supervising treatment/procedure (if not listed above): 13. Witness Name(s): 14. Comments: SCANNED DOCUMENT SIGNATURE NOT REQUIRED Electronically Filed: 04/24/2024 by: CHANEL LOOMIS [facility] Apr 24, 2024 02:37 PM NURSING NOTE: LOCAL TITLE: [facility] IV INSERTION AND MAINTENANCE STANDARD TITLE: NURSING NOTE DATE OF NOTE: APR 24, 2024@14:37 ENTRY DATE: APR 24, 2024@14:37:31 AUTHOR: DODIE CHANG COSIGNER: URGENCY: STATUS: COMPLETED Version 2.2 Charting in accordance with [place] APPROVED [place] STANDARD (PAAES) ACUTE INPATIENT/REHABILITATION NURSING ADMISSION SCREENING, ASSESSMENT, AND STANDARDS OF CARE IV Line Insertion and Maintenance Peripheral IV Line #1: Insertion: Date/Time: Mar@12:10 Inserted by (name): BMP Location: Right, Forearm Gauge: 20 /es/ DODIE CHANG SURGICAL RESIDENT LICENSED PRACTICAL NURSE Signed: 04/24/2024 14:[address] [facility] Apr 24, 2024 02:14 PM INTERVENTIONAL RADIOLOGY NURSING NOTE: LOCAL TITLE: INTERVENTIONAL RADIOLOGY NURSING PROCEDURE NOTE STANDARD TITLE: INTERVENTIONAL RADIOLOGY NURSING NOTE DATE OF NOTE: APR 24, 2024@14:14 ENTRY DATE: APR 24, 2024@14:14:07 AUTHOR: TALIB NUÑEZ COSIGNER: URGENCY: STATUS: COMPLETED Procedure: abcess drain [...] Physician present during time out: Dr. Sadia Stephenson Written informed consent obtained from the patient or surrogate, using the [place] approved form and process. Informed Consent Progress Note containing risks, benefits and alternatives documented. If applicable, imaging data were verified and confirmed. Patient positioning was verified prior to procedure if relevant. (supine, lateral) All necessary special equipment including implants were verified prior to procedure. Procedure Date and Start Time: Mar 1525 Time Procedure completed: Mar 1540 Medications: Sedation Start time: 1525 Sedation End time: 1540 Code status/LST: Full Code ABCESS/DRAIN Patient arrived to IR holding room alert, oriented and aware of procedure to be performed. Written informed consent obtained by MD Stephenson for abscess/drain placement. Risk vs Benefits discussed; [...] Medication: Midazolam Dose: 0.5mg/0.5mL Route: IVP Time: 1530, 1540 Site: Left PIV Medication: Fentanyl Dose: 50mcg/1mL Route: IVP Time: 1525, 1545 Site: Left FA Post-procedure Vital Signs BP: 147/71 HR: 59 02: 95 SBAR report given to 3K RN, please see MD orders. Please reference Interventional MD imaging report/procedure note for further details and findings. /alexi/ TALIB NUÑEZ RN Registered Nurse Signed: 04/24/2024 15:52 [address] [facility] Apr 24, 2024 12:18 PM INTERNAL MEDICINE INPATIENT NOTE: LOCAL TITLE: MEDICINE INPT PROGRESS NOTE STANDARD TITLE: INTERNAL MEDICINE INPATIENT NOTE DATE OF NOTE: APR 24, 2024@12:18 ENTRY DATE: APR 24, 2024@12:18:41 AUTHOR: DODIE QUIÑONEZ COSIGNER: URGENCY: STATUS: COMPLETED No major events [...] Abdominal discomfort has improved since admission. The Tracey catheter is uncomfortable. Exam Vitals: T90.1, HR [...] IR Decision maker: Significant other's son Kirit Stephenson. . See admission staff note for further details /es/ DODIE QUIÑONEZ MD STAFF PHYSICIAN - HOSPITALIST Signed: 04/24/2024 12:37 DODIE QUIÑONEZ [facility] Apr 24, 2024 10:40 AM NURSING INPATIENT NOTE: LOCAL TITLE: [facility] NURSING PROGRESS NOTE STANDARD TITLE: NURSING INPATIENT NOTE DATE OF NOTE: APR 24, 2024@10:40 ENTRY DATE: APR 24, 2024@10:40:17 AUTHOR: EMERITA CUNNINGHAM COSIGNER: URGENCY: STATUS: COMPLETED Nursing Shift Note Nursing care provided from [phone] Highlights from shift: A&O x4, independent with transfers, telemetry - junctional rhythm, room air, NPO, VSS. Tracey catheter in place; 250ml of cloudy urine. [...] tubing, urinary catheters, cell phone etc.) Comment: tracey catheter Potential compromised nutritional status SKIN INTEGRITY: Intact Skin Interventions performed this shift: Patient's heels elevated with pressure relief boots or pillows under calves. Head of Bed kept below 30 degrees unless otherwise ordered. /alexi/ EMERITA CUNNINGHAM RN Signed: 04/24/2024 15:16 [facility] Apr 24, 2024 08:32 AM COMMUNICATION NOTE: LOCAL TITLE: CRITICAL LAB NOTIFICATION STANDARD TITLE: COMMUNICATION NOTE DATE OF NOTE: APR 24, 2024@08:32 ENTRY DATE: APR 24, 2024@08:33:06 AUTHOR: EMERITA CUNNINGHAM EXP COSIGNER: URGENCY: STATUS: COMPLETED CRITICAL LAB VALUE Received a call from Lab at Mar@08:30 Critical Lab Value: Potassium 2.3 Provider Gerard Randolph was notified at 0833 of abnormal lab value. FOLLOW-UP ACTION: The following action was taken to alleviate the abnormal value. potassium replacement ordered by provider /alexi/ EMERITA CUNNINGHAM RN Signed: 04/24/2024 09:01 [facility] Apr 24, 2024 07:52 AM NURSING NOTE: LOCAL TITLE: TELEMETRY AND OXIMETRY CENTRALIZED NOTE STANDARD TITLE: NURSING NOTE DATE OF NOTE: APR 24, 2024@07:52 ENTRY DATE: APR 24, 2024@12:21:36 AUTHOR: ANI CONN EXP COSIGNER: URGENCY: STATUS: COMPLETED Telemetry (Cardiac) Monitor: Day Shift Telemetry initiation date/time: Mar@12:17. Telemetry indication: critical care Cardiac History: diverticulitis, HTN Cardiac rhythm interpretation: junctional rhythm w/ BBB HR:45 AK Int:n/a QRS Int:.16 QT Int:.61 QTc Int:.53 [...] oxygen reading verified by waveform and/or review. /es/ ANI LINGSAGAR DIRECTOR OF GIFT PLANNING Signed: 04/24/2024 12:[address] [facility] Apr 24, 2024 01:48 AM NURSING INPATIENT NOTE: LOCAL TITLE: [facility] NURSING PROGRESS NOTE STANDARD TITLE: NURSING INPATIENT NOTE DATE OF NOTE: APR 24, 2024@01:48 ENTRY DATE: APR 24, 2024@01:48:27 AUTHOR: CAROLANN GILL EXP COSIGNER: URGENCY: STATUS: COMPLETED Nursing Shift Note Nursing care provided from [phone] Highlights from shift: alert and oriented x4, call light within reach and able to make needs known. Denies pain and nausea. Has tracey catheter. Continues to have LR infusing at 75 ml/hr for 24 hour period. Patient has been NPO since midnight for drain placement. Patient continues to get zosyn q 6hours. Telemetry - sinus socorro, heart rate mid to low 40's - experienced 4 beat run of Marisela hall, commercial insurance underwriter updated MOD. Skin intact. Patient later developed [...] Skin Interventions performed this shift: Patient turned [id number] or as appropriate while in bed. Patient's heels elevated with pressure relief boots or pillows under calves. /alexi/ Carolann Gill Signed: 04/24/2024 06:[address] [facility] Apr 23, 2024 11:15 PM NURSING NOTE: LOCAL TITLE: TELEMETRY AND OXIMETRY CENTRALIZED NOTE STANDARD TITLE: NURSING NOTE DATE OF NOTE: APR 23, 2024@23:15 ENTRY DATE: APR 24, 2024@01:35:40 AUTHOR: NORMA JORDAN EXP COSIGNER: URGENCY: STATUS: COMPLETED Telemetry (Cardiac) Monitor: Motor Assembler Telemetry initiation date/time: Mar@12:17. Telemetry indication: Critical care Cardiac History: HTN, AAA, CAD w/stent x2 Cardiac rhythm interpretation: [place] rhythm w/BBB & prolonged QT HR:46 AK Int: QRS Int:.171 QT Int:.543 QTc Int:.476 Telemetry leads monitored this shift: II and V lead Alarm parameters verified this shift Additional comments: Notified nurse Valentine patient convert from SB to junctional rhythm at 2046. Nurse Apoorva was notified of 4 beat Vbrady at 0015, provided copy of full disclosure. Continuous Oximetry Montior: Motor Assembler Continuous oximetry initiation date/time: Mar@12:17. Oximetry indication: Aspiration risk Respiratory history: JUANJOSE, Lung nodules Continuous oximetry readin-97 Alarm parameters verified this shift. Accuracy of oxygen reading verified by waveform and/or review. /alexi/ NORMA JORDAN [facility] Signed: 04/24/2024 01:[address] [facility] Apr 23, 2024 06:40 PM NURSING INPATIENT NOTE: LOCAL TITLE: [facility] NURSING PROGRESS NOTE STANDARD TITLE: NURSING INPATIENT NOTE DATE OF NOTE: APR 23, 2024@18:40 ENTRY DATE: APR 23, 2024@18:40:47 AUTHOR: ROXANN GONZALEZ EXP COSIGNER: URGENCY: STATUS: COMPLETED [facility] NURSING PROGRESS NOTE Has ADDENDA Nursing Shift Note Pt cared for from: [id number] Admitting DX: DIVERTICULITIS ABSC W/FIST Allergies: TERAZOSIN (Mar 13, 2015) Age: 73 Branch: [employer] Code Status: Full Code Contact precaution: Current [...] known. Cardio: *S1/S2,Denies SOB/CP. Pulses x4 extremities. GLASS FRAME FITTER < 3 seconds *Metalsmith Apprentice shows 1st degreee AVB w/BBB Pulm: *Lungs Clear throughout w/o adventitious sounds. Denies SOB/[place]. POX>90% RA. GI/: *BS x4, denies ABD PAIN/TND, N/V/D, LBM: 04/23 *Alexy placed this shift w/o difficulty, 16FR. Musculoskeletal: *BUE strength rated 5/5 ; BLE strength rated 5/5 Pain: *Denies Pain Gtts: *LR @ 75mL/hr continous Access: *PIV RAC 20g Infusing Activity: *Vet IND with ambulation w/o device; Vet IND with ADLs - *Please see ICIP for further detailed assessments and BCMA for medication Administrations *Education provided on medication/cares this shift as needed* - /alexi/ ROXANN GONZALEZ RN REGISTERED NURSE, BSN Signed: 04/23/2024 19:25 04/23/2024 ADDENDUM STATUS: COMPLETED Cared for pt from [id number]. HR 50's, clinical research monitor varies between 1st degree AVB/BBB/junct. BP 145/76. Sats 97% on RA. LR infusing at 75cc/hour, receiving IV abx. On clear liquid diet, NPO after midnight for peritoneal drain placement, pt verbalized understanding of NPO status. Cpap ordered for pt, pt states he does not wear one at home, offered to have RT set up loaner machine but pt refusing. Given tylenol x1. Tracey patent for beige/cream colored output. Pt having to stand at times for tracey to drain, tracey flushed easily, no blood or clots noted. /alexi/ VALENTINE GALLAGHER, SALES LEAD RN Signed: 04/23/2024 22:[address] [facility] Apr 23, 2024 06:23 PM COLON & RECTAL SURGERY CONSULT: LOCAL TITLE: PROCTO/COLORECTAL CONSULT STANDARD TITLE: COLON & RECTAL SURGERY CONSULT DATE OF NOTE: APR 23, 2024@18:23 ENTRY DATE: APR 23, 2024@18:23:28 AUTHOR: LOGAN CHANG COSIGNER: URGENCY: STATUS: COMPLETED Date of Last Admission: 04/23/2024 (Future) 3K Admitting Dx: DIVERTICULITIS Provider: COLT RUCKER Admission Diagnosis: DIVERTICULITIS ABSC W/FIST CHIEF COMPLAINT: abdominal pain, constipation, urinary symptoms HISTORY OF PRESENT ILLNESS: 73 year old WHITE MALE with PMHx multiple episodes of diverticulitis over the past 8 years, HTN, JUANJOSE, CAD, AAA who presents as a transfer from [place] for an episode of diverticulitis. The patient [...] . No additional CRC surveillance recommended by vocational rehab consultant. 9. Decreased vitamin D - 02.24.2017 [...] Abnormal LUE EMG (C-7 & Median N.). 01.14.2015 Abnormal RUE EMG(Median N.). 15. Steatosis of liver - By 02.13.[address] 16. Diverticular disease - By 02.13.[address] 03.14.2020 OSH(ED [place], [place]): Pt. Declined Admission. 03.14.2020 CT with Mild Sigmoid diverticulitis. 04.23.2020 ED(OS[facility]): Declined admission. 17. 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 18. Ex-tobacco user 19. Impaired Fasting Glucose (SCT [id number]) - 02.26.2014 A1c 5.8%. 20. Adrenal mass [...] 24. Hiatal hernia 25. Shoulder Pain (SCT [id number]) 26. Trigger finger 27. [facility] - Community Care Primary: Dr. Cathi Simeon, [facility] [place] [address]. FUNCTIONAL HEALTH STATUS (BEFORE ADMISSION): Independent in ADLs (bathing/feeding/dressing/t oileting/mobility) Past Surgical History: Hx of 3 lumber back surgeries many years ago. Hx of stent placement 2015. H/o hemorrhoids s/p banding. 08/2015 - hemorrhoidectomy [...] (04/23/24) PTT: APTT 29.3 (04/23/24) Lactate 1.5 02/19 - UA negative IMAGING CT A/P with [...] surgical intervention indicated at this time. Recommend Tracey to divert urine from fistula. Plan: - Continue NPO, IVF - Continue IV antibiotics - Recommend Tracey to decompress bladder - IR consult to consider placement of drain into pelvic abscess - No acute surgical intervention indicated at this time - Colorectal surgery will continue to follow. Page if questions/concerns. The patient was discussed with colorectal fellow and staff surgeon. Logan Chang MD General Surgery, PGY2 /es/ Logan Chang MD Resident, Gen Surg Signed: 04/23/2024 20:08 Receipt Acknowledged By: 04/24/2024 16:45 /alexi/ PALMIRA GRAVES MD STAFF SURGEON, COLON/RECTAL LOGAN CHANG JEZ [facility] Apr 23, 2024 05:27 PM NURSING NOTE: [...] interpretation: Second Degree type 1 AVB HR:68 AK Int:n/a QRS Int:.13 QT Int:.46 QTc Int:.49 Telemetry leads monitored this shift: II and V lead Alarm parameters verified this shift Continuous Oximetry Montior: Evening Shift Continuous oximetry initiation date/time: Mar@12:17. Oximetry indication: aspiration risk Respiratory history: lung nodules, JUANJOSE, sleep apnea Continuous oximetry readin-97% Alarm parameters verified this shift. Accuracy of oxygen reading verified by waveform and/or review. /alexi/ BHARAT ZABALA VISUAL MANAGER Signed: 04/23/2024 17:[address] [facility] Apr 23, 2024 05:14 PM ATTENDING ADMISSION EVALUATION NOTE: LOCAL TITLE: MEDICINE ADMISSION STAFF NOTE STANDARD TITLE: ATTENDING ADMISSION EVALUATION NOTE DATE OF NOTE: APR 23, 2024@17:14 ENTRY DATE: APR 23, 2024@17:15:07 AUTHOR: MCKAY VICTOR EXP COSIGNER: URGENCY: STATUS: COMPLETED INPATIENT MEDICINE [...] year old MALE with above sent from non-VA ED to direct admit here. He has [...] would trust his significant other's son Kirit Stephenson to be a surrogate decision maker if patient lacked capacity. Kirit's number is [phone] Full Code confimred today /es/ MCKAY VICTOR M.D. Staff Physician Signed: 04/23/2024 17:[address] [facility] Apr 23, 2024 04:01 PM CARDIOLOGY CONSULT: LOCAL TITLE: CARDIOLOGY CONSULT STANDARD TITLE: CARDIOLOGY CONSULT DATE OF NOTE: APR 23, 2024@16:01 ENTRY DATE: APR 23, 2024@16:01:54 AUTHOR: STEVEN SANTIAGO EXP COSIGNER: URGENCY: STATUS: COMPLETED CARDIOLOGY CONSULT Has ADDENDA ELECTROPHYSIOLOGY CONSULT Mr. Weaver is a 71 year-old with PMH significant [...] Patient initially presented to the ED in [place], [place] with complaints of air and feces in his urine. CT scan showed diverticulitis with abscess and new colovesicular fistula. WBC up to 19, lactate 2.7, CRP 18, K 2.4. Hemodynamically stable. He was started on IV antibiotics with zosyn and admitted to [facility] surg with colorectal surgery evaluation. A 12-lead [...] Aortic Root: 3.50 cm (2.4-3.7) ASSESSMENT/PLAN Mr. Weaver is a 71 year-old with PMH significant [...] off Assessment and plan discussed with Dr. Johnson. Steven Santiago MD Veneer Trimmer /alexi/ STEVEN SANTIAGO ENGROSSER Signed: 04/23/2024 16:06 Receipt Acknowledged By: 04/23/2024 17:21 /alexi/ AMIE JOHNSON MD PHD STAFF PHYSICIAN-CLINICAL CARDIAC ELECTROPHYSIOLOGY 04/23/2024 [...] you have any further questions. /alexi/ AMIE JOHNSON MD PHD STAFF PHYSICIAN-CLINICAL CARDIAC ELECTROPHYSIOLOGY Signed: 04/23/2024 17:[address] [facility] Apr 23, 2024 03:40 PM H & P NOTE: LOCAL TITLE: H&P HISTORY & PHYSICAL - MEDICINE STANDARD TITLE: H & P NOTE DATE OF NOTE: APR 23, 2024@15:40 ENTRY DATE: APR 23, 2024@15:40:09 AUTHOR: GERARD RANDOLPH COSIGNER: URGENCY: STATUS: COMPLETED MEDICINE HISTORY & PHYSICAL Chief Complaint: Diverticulitis complicated w/ abscess and colovesicular fistula History of Present Illness (HPI) - 73 years old MALE with PMHx of recurrent diverticulitis, HTN, multiple back surgieries, CAD w/ stent x2 placed in 2016 being transferred from [facility] after CT Scan Abd/Pelvis w/ contrast demonstrated acute diverticulitis w/ a 7.4cm x 4.2cm abscess and new colovesicular fistula requiring a higher level of care. Prior to today's admission: Patient presented to the [place] ED here two days ago with ongoing difficulties with dysuria, urinary frequency and constipation. Workup at that time was negative for a UTI and pt wished to return home. At about 3am today patient reports he was feeling worse than a day prior and also noted blood in his urine. He therefore drove himself to [facility]. When attempting to get a UA at [facility] patient was noted to have gas and [...] . No additional CRC surveillance recommended by vocational rehab consultant. 9. Decreased vitamin D - 02.24.2017 [...] - By 02.13.[address] 03.14.2020 OSH(ED [place], [place]): Pt. Declined Admission. 03.14.2020 CT with Mild Sigmoid diverticulitis. 04.23.2020 ED([facility]): Declined admission. 17. 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 18. Ex-tobacco user 19. Impaired Fasting Glucose (SCT [id number]) - 02.26.2014 A1c 5.8%. 20. Adrenal mass [...] 24. Hiatal hernia 25. Shoulder Pain (SCT [id number]) 26. Trigger finger 27. [facility] Primary Care - Community Care Primary: Dr. Cathi Simeon, [place] [address]. Past Surgical History: Hx of 3 lumber back surgeries many years ago. Hx of stent placement 2016. H/o hemorrhoids s/p banding. No issues with [...] for this patient Imaging Records obtained from [facility] - Disc w/ CT scan given to Image processing and will hopefully be updated to his chart shortly. Assessment/Plan: 73 years old MALE with PMHx of recurrent diverticulitis, HFpEF, h/o tobacco use, HTN, multiple back surgieries, CAD w/ stent x2 placed in 2016 being transferred from [facility] after CT Scan Abd/Pelvis w/ contrast demonstrated [...] with abscess and fistula. Zosyn started at [facility] and will be continued here for the [...] now, replace, and monitor closely. - Resume PROMOTIONAL MARKETING AGENT statin, PROMOTIONAL MARKETING AGENT isosorbide - Hold PROMOTIONAL MARKETING AGENT Furosemide, HCTZ, Empaglizflozin, and spironolactone - K+ replacement per protocol #Hypertension #CAD, hx of stent placement x2 2016 - Resume PROMOTIONAL MARKETING AGENT statin, PROMOTIONAL MARKETING AGENT isosorbide - Hold PROMOTIONAL MARKETING AGENT Furosemide, HCTZ, Empaglizflozin, and spironolactone - Echocardiogram (recommended by EP) #Hx of Tobacco use - Quit 10 years ago #Colovesicular fistula #Feces in urine - Surgery recommending Tracey placement, order placed Fluids/Electrolytes/Nutriti on (FEN): Liquid Diet, NPO at midnight Deep Vein Thrombosis (DVT) Prophylaxis: None, pre-procedure Code Status: Full Code Disposition: TBD, hopefully back to indepdent living I have seen and discussed the patient with my attending, Dr. Victor, who agrees with the above assessment and plan. Additional Secondary Diagnoses /alexi/ GERARD RANDOLPH Signed: 04/23/2024 17:[address] [facility] Apr 23, 2024 02:40 PM COMMUNICATION NOTE: LOCAL TITLE: CRITICAL LAB NOTIFICATION STANDARD TITLE: COMMUNICATION NOTE DATE OF NOTE: APR 23, 2024@14:40 ENTRY DATE: APR 23, 2024@14:40:27 AUTHOR: EMERITA CUNNINGHAM EXP COSIGNER: URGENCY: STATUS: COMPLETED CRITICAL LAB VALUE Potassium 2.6. Provider notified at 1435. /alexi/ EMERITA CUNNINGHAM RN Signed: 04/23/2024 14:[address] [facility] Apr 23, 2024 01:49 PM TREATMENT PLAN INTERDISCIPLINARY NOTE: LOCAL TITLE: ITP INTERDISCIPLINARY TREATMENT PLAN STANDARD TITLE: TREATMENT PLAN INTERDISCIPLINARY NOTE DATE OF NOTE: APR 23, 2024@13:49 ENTRY DATE: APR 23, 2024@13:49:57 AUTHOR: EMERITA CUNNINGHAM EXP COSIGNER: URGENCY: STATUS: COMPLETED Interdisciplinary Treatment Plan [...] providers, nurses, pharmacy Transportation needs: son will spanish moss picker Plan of care shared with patient/family and verbalized with understanding. /alexi/ EMERITA CUNNINGHAM RN Signed: 04/23/2024 14:[address] [facility] Apr 23, 2024 12:23 PM NURSING NOTE: LOCAL TITLE: TELEMETRY AND OXIMETRY CENTRALIZED NOTE STANDARD TITLE: NURSING NOTE DATE OF NOTE: APR 23, 2024@12:23 ENTRY DATE: APR 23, 2024@13:03:57 AUTHOR: ANI CONN COSIGNER: URGENCY: STATUS: COMPLETED Telemetry (Cardiac) Monitor: Day Shift Telemetry initiation date/time: Mar@12:17. Telemetry indication: critical care Cardiac History: diverticulitis, HTN Cardiac rhythm interpretation: sinus rhythm w/ BBB, intermittent 2 AVB Type 2 HR:58 AK Int:n/a QRS Int:.14 QT Int:.50 QTc Int:.49 [...] Type 2, HR drops to mid 40's. ROSALIND Chavira notified. Continuous Oximetry Montior: Day Shift Continuous oximetry initiation date/time: Mar@12:17. Oximetry indication: aspiration risk Respiratory history: lung nodules, JUANJOSE Continuous oximetry readin-98% Alarm parameters verified this shift. Accuracy of oxygen reading verified by waveform and/or review. /alexi/ ANI CONN DIRECTOR OF GIFT PLANNING Signed: 04/23/2024 13:[address] [facility] Apr 23, 2024 11:39 AM NURSING ADMISSION EVALUATION NOTE: LOCAL TITLE: VAAES ACUTE INPATIENT NSG ADMISSION SCREEN STANDARD TITLE: NURSING ADMISSION EVALUATION NOTE DATE OF NOTE: APR 23, 2024@11:39 ENTRY DATE: APR 23, 2024@11:40:16 AUTHOR: EMERITA CUNNINGHAM COSIGNER: URGENCY: STATUS: COMPLETED VAAES ACUTE INPATIENT NSG ADMISSION SCREEN Has ADDENDA ======= ALLERGY/ADVERSE DRUG REACTION (ADR) REVIEW (MRT5) ======= FACILITY ALLERGY/ADR -------- No Remote Allergy/ADR Data available for this patient [facility] Allergy/Adverse Drug Reaction Review to be conducted by: Other: Allergy review by: providers ====== MEDICATION REVIEW (MRR1) ====== Did patient bring medication(s) from home? No ====== GENERAL INFORMATION ====== Admission information given by: Patient Is there a legal guardian/conservator? No Preferred language for discussing healthcare: Setswana Preferred mode of communication: Verbal Sensory Deficits & Contributing Information: Items at Bedside: Visual Aids: Standard Glasses Other: cell phone, glasses x2, wallet, shirt, shorts, belt, shoes, briseno ======= INFECTIOUS DISEASE RISK SCREEN ======= Travel Screen: Have you traveled within the [place] within the last 21 days? No Have you traveled outside the [facility] within the last 21 days? No Within [...] special dietary need, or ethnic, cultural or mormon preference that affects their dietary need. Specify: [...] desire to leave. ===== SUICIDE SCREEN ===== Cloud Suicide Severity Rating Scale (C-SSRS) 1. Over [...] Directive: No ===== SPIRITUALITY ===== Are there mormon practices or spiritual concerns you want the chief operating officer, your provider, and other health care team members to know? No ====== ANTICIPATED DISCHARGE NEEDS ====== Where do you live? Housing owned/rented by [place]: Method of transportation upon discharge: Other: Comment: family will spanish moss picker Are there any anticipated barriers to [...] you currently experiencing pain? no /alexi/ EMERITA CUNNINGHAM RN Signed: 04/23/2024 12:01 04/23/2024 ADDENDUM STATUS: COMPLETED Pt. A&O x4, independent with transfers, telemetry - sinus rhythm with BBB and intermittently 2nd degree AVB type 2 (EKG done, provider notified). Pt. noted to have low potassium of 2.6; provider notified. LR continuously infusing at rate 120ml/hr per order. Pt. denied pain, SOB, N/V,dizziness. /jerome CUNNINGHAM RN Signed: 04/23/2024 15:[address] [facility]
--- OUTSIDE RECORDS SUMMARY | 2024-07-16 07:07 | XMS_ITS ---
[place] DAILY HOSPITALIZATION DATA [facility] HCS Encounter Summary Created on: July 16, 2024 FLACA WEAVER : 1950 Sex: Male Author Name [facility] [place] [facility] [place] [facility] [place] Address [address] [place] [address] Care Team Providers Care Game Protector Name Role Phone JATINDER BENITEZ Primary Care [...] PART A Sep 29, 2016 PART A [id number] [phone] JUDY WEAVER PATIENT Selected Encounter This section [...] 02:30 PM AMBULATORY - NONE [place] [facility] May 02, 2024 10:00 AM AMBULATORY - SURGERY [place] [facility] May 04, 2024 09:00 AM AMBULATORY - NONE [place] [facility] May 07, 2024 08:45 AM AMBULATORY - MEDICINE [place] [facility] May 08, 2024 02:00 PM AMBULATORY - NONE [place] [facility] May 09, 2024 07:30 AM AMBULATORY - SURGERY [place] [facility] May 11, 2024 01:00 PM AMBULATORY - NONE [place] [facility] May 11, 2024 03:30 PM AMBULATORY - NONE [place] [facility] May 15, 2024 08:30 AM AMBULATORY - [place]ICINE [place] [facility] May 16, 2024 07:45 AM AMBULATORY - SURGERY [place] [facility] May 22, 2024 07:30 AM AMBULATORY - NONE [place] [facility] May 22, 2024 05:30 PM AMBULATORY - NONE [place] [facility] May 25, 2024 08:22 AM AMBULATORY - NONE [place] [facility] May 25, 2024 09:00 AM AMBULATORY - NONE [place] [facility] May 28, 2024 08:15 AM AMBULATORY - SURGERY [place] [facility] Jun 04, 2024 11:30 AM AMBULATORY - NONE [place] [facility] Jun 08, 2024 11:00 AM AMBULATORY - SURGERY [place] [facility] Jun 08, 2024 12:45 PM AMBULATORY - NONE [place] [facility] Jun 08, 2024 01:15 PM AMBULATORY - MEDICINE [place] [facility] Jun 08, 2024 01:45 PM AMBULATORY - SURGERY [place] [facility] Active, Pending, and Scheduled Orders This [...] SUSCEPTIBILITY ~Culture sample from JUAN drain output [facility] Apr 26, 2024 10:10 AM Laboratory - Microbiology Order GRAM STAIN WOUND OTHER WC ONCE ~For Test: GRAM STAIN ~JUAN drain culture/gram stain [facility] May 28, 2024 12:00 AM Laboratory - Blood Bank Order TYPE & SCREEN - LAB BLOOD SP [facility] Lab Results: +/- 30 days of the [...] Range Comment May 21, 2024 06:59 AM [facility] BASIC METABOLIC PANEL+MG Specimen Type: PLASMA No comment entered. Ordering Provider: GOLDIE BENITEZ Report Released Date/Time: May 15, 2024 08:34 AM Reporting Lab: [facility] [phone] Performing Lab: [facility] [phone] CREATININE 0.9 mg/dL 0.7-1.2 UREA NITROGEN 18 mg/dL 8-26 GLUCOSE 126 mg/dL H 70-100 SODIUM 138 mmol/L 136-145 POTASSIUM 4.0 mmol/L 3.5-5.1 CHLORIDE 105 mmol/L 98-107 CO2 24 mmol/L 22-29 CALCIUM 9.8 mg/dL 8.4-10.2 MAGNESIUM 2.0 mg/dL 1.6-2.6 ANION GAP 9 mmol/L 5-15 .CREAT EGFR(CKD-EPI) >90 >60 May 04, 2024 08:36 AM [facility] BASIC METABOLIC PANEL+MG Specimen Type: PLASMA No comment entered. Ordering Provider: GOLDIE BENITEZ Report Released Date/Time: May 03, 2024 12:52 PM Reporting Lab: [facility] [address] Performing Lab: [facility] [address] CREATININE 0.7 mg/dL 0.7-1.2 UREA NITROGEN 13 mg/dL 8-26 GLUCOSE 91 mg/dL 70-100 SODIUM 141 mmol/L 136-145 POTASSIUM 3.6 mmol/L 3.5-5.1 CHLORIDE 109 mmol/L H 98-107 CO2 25 mmol/L 22-29 CALCIUM 8.9 mg/dL 8.4-10.2 MAGNESIUM 2.0 mg/dL 1.6-2.6 ANION GAP 7 mmol/L 5-15 .CREAT EGFR(CKD-EPI) >90 >60 Apr 26, 2024 07:16 AM [facility] BASIC METABOLIC PANEL+MG Specimen Type: PLASMA No comment entered. Ordering Provider: JONO RANDOLPH Report Released Date/Time: Apr 25, 2024 02:50 PM Reporting Lab: [facility] [phone] Performing Lab: [facility] [address] CREATININE 0.7 mg/dL 0.7-1.2 UREA NITROGEN 15 mg/dL 8-26 GLUCOSE 106 mg/dL H 70-100 SODIUM 139 mmol/L 136-145 POTASSIUM 3.4 mmol/L L 3.5-5.1 CHLORIDE 105 mmol/L 98-107 CO2 25 mmol/L 22-29 CALCIUM 8.5 mg/dL 8.4-10.2 MAGNESIUM 2.2 mg/dL 1.6-2.6 ANION GAP 9 mmol/L 5-15 .CREAT EGFR(CKD-EPI) >90 >60 Apr 25, 2024 05:10 PM [facility] BASIC METABOLIC PANEL+MG Specimen Type: PLASMA No comment entered. Ordering Provider: GIOVANNI ADLER Report Released Date/Time: Apr 25, 2024 05:04 PM Reporting Lab: [facility] [phone] Performing Lab: [facility] [address] CREATININE 0.7 mg/dL 0.7-1.2 UREA NITROGEN 15 mg/dL 8-26 GLUCOSE 104 mg/dL H 70-100 SODIUM 139 mmol/L 136-145 POTASSIUM 3.2 mmol/L L 3.5-5.1 CHLORIDE 103 mmol/L 98-107 CO2 28 mmol/L 22-29 CALCIUM 8.5 mg/dL 8.4-10.2 MAGNESIUM 2.2 mg/dL 1.6-2.6 ANION GAP 8 mmol/L 5-15 .CREAT EGFR(CKD-EPI) >90 >60 Apr 25, 2024 07:46 AM [facility] BASIC METABOLIC PANEL+MG Specimen Type: PLASMA No comment entered. Ordering Provider: GIOVANNI ADLER Report Released Date/Time: Apr 24, 2024 12:37 PM Reporting Lab: [facility] [phone] Performing Lab: [facility] [address] CREATININE 0.7 mg/dL 0.7-1.2 UREA NITROGEN 14 mg/dL 8-26 GLUCOSE 127 mg/dL H 70-100 SODIUM 139 mmol/L 136-145 POTASSIUM 2.9 mmol/L L 3.5-5.1 CHLORIDE 101 mmol/L 98-107 CO2 29 mmol/L 22-29 CALCIUM 8.7 mg/dL 8.4-10.2 MAGNESIUM 2.3 mg/dL 1.6-2.6 ANION GAP 9 mmol/L 5-15 .CREAT EGFR(CKD-EPI) >90 >60 Apr 24, 2024 04:42 PM [facility] BASIC METABOLIC PANEL+MG Specimen Type: PLASMA No comment entered. Ordering Provider: GIOVANNI ADLER Report Released Date/Time: Apr 24, 2024 12:37 PM Reporting Lab: [facility] [address] Performing Lab: [facility] [address] CREATININE 0.7 mg/dL 0.7-1.2 UREA NITROGEN 16 mg/dL 8-26 GLUCOSE 97 mg/dL 70-100 SODIUM 138 mmol/L 136-145 POTASSIUM 2.7 mmol/L L 3.5-5.1 CHLORIDE 99 mmol/L 98-107 CO2 30 mmol/L H 22-29 CALCIUM 8.4 mg/dL 8.4-10.2 MAGNESIUM 2.1 mg/dL 1.6-2.6 ANION GAP 9 mmol/L 5-15 .CREAT EGFR(CKD-EPI) >90 >60 Apr 24, 2024 07:36 AM [facility] BASIC METABOLIC PANEL+MG Specimen Type: PLASMA Comment: Critical Value Reported To: Cait Zamorano RN 8-27-24@08[facility]. Critical value report confirmed. Ordering Provider: AARON VICTOR Report Released Date/Time: Apr 23, 2024 05:30 PM Reporting Lab: [facility] [address] Performing Lab: [facility] [address] CREATININE 0.7 mg/dL 0.7-1.2 UREA NITROGEN 16 mg/dL 8-26 GLUCOSE 105 mg/dL H 70-100 SODIUM 138 mmol/L 136-145 POTASSIUM 2.3 mmol/L LL 3.5-5.1 CHLORIDE 98 mmol/L 98-107 CO2 29 mmol/L 22-29 CALCIUM 8.3 mg/dL L 8.4-10.2 MAGNESIUM 2.2 mg/dL 1.6-2.6 ANION GAP 11 mmol/L 5-15 .CREAT EGFR(CKD-EPI) >90 >60 Apr 24, 2024 07:35 AM [facility] CBC & DIFF Specimen Type: BLOOD Comment: Automated Differential Performed Ordering Provider: AARON VICTOR Report Released Date/Time: Apr 23, 2024 05:30 PM Reporting Lab: [facility] [address] Performing Lab: [facility] [address] WBC 10.49 10*3/uL 4.0-11.0 RBC 3.83 10*6/uL [...] 10*3/uL 0-0.1 Apr 23, 2024 01:20 PM [facility] LACTIC ACID Specimen Type: PLASMA No comment entered. Ordering Provider: AARON VICTOR Report Released Date/Time: Apr 23, 2024 12:05 PM Reporting Lab: [facility] [address] Performing Lab: [facility] [address] LACTIC ACID 1.5 mmol/L 0.5-2.2 Apr 23, 2024 01:20 PM [facility] ACT PART THROMBO TIME Specimen Type: PLASMA No comment entered. Ordering Provider: AARON VICTOR Report Released Date/Time: Apr 23, 2024 12:05 PM Reporting Lab: [facility] [address] Performing Lab: [facility] [address] APTT 29.3 s 25.1-36.5 Apr 23, 2024 01:20 PM [facility] PROTHROMBIN TIME/INR Specimen Type: PLASMA No comment entered. Ordering Provider: AARON VICTOR Report Released Date/Time: Apr 23, 2024 12:05 PM Reporting Lab: [facility] [address] Performing Lab: [facility] [address] .INR 1.2 H 0.8-1.1 .PT 14.5 s H 9.4-12.5 Apr 23, 2024 01:20 PM [facility] COMPREHENSIVE METABOLIC PANEL+MG Specimen Type: PLASMA No comment entered. Ordering Provider: AARON VICTOR Report Released Date/Time: Apr 23, 2024 12:05 PM Reporting Lab: [facility] [address] Performing Lab: [facility] [address] CREATININE 0.7 mg/dL 0.7-1.2 UREA NITROGEN 19 [...] >90 >60 Apr 23, 2024 01:20 PM [facility] CBC & DIFF Specimen Type: BLOOD Comment: Automated Differential Performed Ordering Provider: AARON VICTOR Report Released Date/Time: Apr 23, 2024 12:05 PM Reporting Lab: [facility] [address] Performing Lab: [facility] [address] WBC 12.50 10*3/uL H 4.0-11.0 RBC 4.07 [...] 10*3/uL 0-0.1 Apr 21, 2024 07:28 AM [facility] URINALYSIS Specimen Type: URINE No comment entered. Ordering Provider: ANANDA HUGGINS Report Released Date/Time: Apr 21, 2024 07:37 AM Reporting Lab: [facility] [address] Performing Lab: [facility] [address] [facility] [address] URINE COLOR COLORLESS SPECIFIC GRAVITY 1.009 1.003-1.03 [...] Apr 23, 2024 01:59 PM 211.1 [facility] Social History: Smoking Status (Most current) and [...] 06, 2023 11:30 AM VA-TOBACCO FORMER USER [facility] Tobacco Use History This section includes a history of the smoking, or tobacco-related health factors, that were collected on or before the date of the Encounter. The data comes from the [place] facility where the Encounter took place. Date/Time Smoking Status/Tobacco Use Comment F acility May 06, 2023 11:30 AM VA-TOBACCO QUIT 15 YRS OR MORE [facility] Jun 04, 2022 09:00 AM VA-TOBACCO FORMER USER [facility] Jun 04, 2022 09:00 AM VA-TOBACCO QUIT 15 YRS OR MORE [facility] Jul 10, 2021 08:00 AM VA-TOBACCO FORMER USER [facility] Jul 10, 2021 08:00 AM VA-TOBACCO QUIT 5 TO < 15 YRS [facility] May 23, 2020 08:30 AM VA-TOBACCO FORMER USER [facility] May 23, 2020 08:30 AM VA-TOBACCO QUIT 5 TO < 15 YRS [facility] Mar 20, 2019 04:03 PM VA-TOBACCO FORMER USER [facility] Mar 20, 2019 04:03 PM VA-TOBACCO QUIT 5 TO < 15 YRS [facility] Mar 21, 2018 08:13 AM FORMER TOBACCO USER 7Y OR GREATE R [facility] Feb 24, 2017 09:24 AM FORMER TOBACCO USER 7Y OR GREATE R [facility] January 07, 2016 08:01 AM FORMER TOBACCO USE >1Y <7Y [facility] Feb 03, 2015 07:58 AM FORMER TOBACCO USE <1Y [facility] Feb 26, 2014 08:41 AM CURRENT TOBACCO USER [facility] May 13, 2011 01:45 PM CURRENT TOBACCO USER [facility] Advance Directives: All historical and current Section [...] Mar 23, 2016 [facility]INICAL [facility]ING [facility] Radiology Reports: +/- 30 days of the [...] FISTULOGRAM / S INOGRAM (P): FLACA WEAVER [id number] -1950 M Exm Date: MAY 11, 2024@12:39 Req Phys: PALMIRA POWELL Loc: [facility] C/R FOLLOW-UP CLINIC (Req' Img Loc: INTERVENTIONAL RADIOLOGY Service: [place] [address] (Case [id number] COMPLETE) IR INJECTION FOR SINOGRAM DIAGNOS(ANI Detailed) CPT:95390 Contrast Media : Non-ionic Iodinated Reason for Study: s/p drain placement for diverticular abscess- assess for drain (Case [id number] COMPLETE) IR FISTULOGRAM OR SINOGRAM (ANI Detailed) CPT:78527 Contrast Media : unspecified contrast media (Case 3773 COMPLETE) IR DRAINAGE CATHETER SUPPLY (ANI Detailed) CPT:C1729 Clinical History: IS NOT under investigation for COVID-19 or is COVID-19 negative s/p drain placement for diverticular abscess- assess for drain removal Contact number for responsible provider who can be reached for any questions or notifications of critical findings: [phone] Palmira Powell MD LAST CREATININE 0.7 (05/04/24) Report Status: Verified Date Reported: MAY 11, 2024 Date Verified: MAY 11, 2024 Chief Operator E-Sig:/ES/AMINTA ESCALONA MD Report: PROCEDURES Abdominal drain [...] Interpreting Staff: AMINTA ESCALONA MD, INTERVENTIONAL RADIOLOGIST (Chief Operator) /AMINTA VELAZCO [facility] May 11, 2024 11:[address] (AP) ABDOMEN/PE LVIS (P): MEGFALCA LOBO [id number] -1950 M Exm Date: MAY 11, 2024@11:40 Req Phys: PALMIRA POWELL Loc: [facility] C/R FOLLOW-UP CLINIC (Req' Img Loc: CT IMAGING Service: [place] [address] (Case [id number] COMPLETE) CT (AP) ABDOMEN/PELVIS W CONTRAST(CT Detailed) CPT:54022 Contrast Media : Non-ionic Iodinated Reason for [...] any questions or notifications of critical findings: [phone] Palmira Powell MD LAST 3: Collection DT [...] PLASMA .CREAT EGFR(CKD-E >90 Ref: >=60 Allergies: ([place] only) TERAZOSIN (Mar 13, 2015) Report Status: Verified Date Reported: MAY 11, 2024 Date Verified: MAY 11, 2024 Chief Operator E-Sig:/ES/LISA PENDLETON MD Report: CT abdomen and [...] Primary Interpreting Staff: LISA PENDLETON MD, RADIOLOGIST (Chief Operator) /JRT LISA PENDLETON [facility] Apr 24, 2024 02:13 PM ABSCESS DRAIN PLAC EMENT PERITONEAL (P): FLACA WEAVER [id number] -1950 M Exm Date: APR 24, 2024@14:13 Req Phys: TAURUS WOOD Amanda Loc: 3KS/04-24-2024@16:07 Img Loc: INTERVENTIONAL RADIOLOGY Service: PR[place] [address] (Case [id number] COMPLETE) IR PERITONEAL/RETROPERITONEAL PER(ANI Detailed) CPT:62607 Reason for Study: diverticular abscess Clinical History: [...] any questions or notifications of critical findings: [phone] If ordering provider is a trainee, enter the name and contact information of the responsible staff physician. Palmira Powell MD LAST CREATININE 0.7 (04/23/24) Report Status: Verified Date Reported: APR 24, 2024 Date Verified: APR 24, 2024 Chief Operator E-Sig:/ES/SADIA DEE MD Report: PROCEDURES: Placement [...] anesthesia. Using real-time CT fluoroscopy, a 5 Palestinian Yueh catheter was advanced into the collection in the left lower quadrant. A wire was coiled in the collection. The tract into the collection was dilated to accommodate the 12 Palestinian locking pigtail drainage catheter. The catheter was secured to the skin with monofilament suture and connected to JUAN bulb suction. Impression: Successful placement of a 12 Palestinian locking pigtail drainage catheter in the left lower quadrant abscess. This catheter is connected to JUAN bulb suction with flushes, as ordered. I, SADIA DEE, have reviewed the images and report. Primary Interpreting Staff: SADIA DEE MD, RADIOLOGIST (Chief Operator) Primary Interpreting Resident: JEFFREY FLOWER MD, RECEIVING SPECIALIST /SADIA SNYDER [facility] Apr 24, 2024 02:[address] NEEDLE PLACEMEN T (P): FLACA WEAVER [id number] -1950 M Exm Date: APR 24, 2024@14:11 Req Phys: ISRAELTAURUS KADY Amanda Loc: 3K04-24-2024@16:07 Img Loc: CT IMAGING Service: PRIMARY [place] [address] (Case [id number] COMPLETE) CT SCAN FOR NEEDLE PLACEMENT (CT Detailed) CPT:48506 Reason for Study: diverticular abscess Clinical History: Report Status: Verified Date Reported: APR 24, 2024 Date Verified: APR 24, 2024 Chief Operator E-Sig:/ES/SADIA DEE MD Report: PROCEDURES: Placement [...] anesthesia. Using real-time CT fluoroscopy, a 5 Palestinian Yueh catheter was advanced into the collection in the left lower quadrant. A wire was coiled in the collection. The tract into the collection was dilated to accommodate the 12 Palestinian locking pigtail drainage catheter. The catheter was secured to the skin with monofilament suture and connected to JUAN bulb suction. Impression: Successful placement of a 12 Palestinian locking pigtail drainage catheter in the left lower quadrant abscess. This catheter is connected to JUAN bulb suction with flushes, as ordered. I, SADIA DEE, have reviewed the images and report. Primary Interpreting Staff: SADIA DEE MD, RADIOLOGIST (Chief Operator) Primary Interpreting Resident: JEFFREY FLOWER MD, RECEIVING SPECIALIST /SADIA SNYDER [facility] Apr 23, 2024 06:[address] [facility] CT ABDOMEN/ PELVIS: FLACA WEAVER [id number] -1950 M Exm Date: APR 23, 2024@06:36 Req Phys: MCKAY VICTOR [facility] Loc: 04-24-2024@10:25 Img Loc: OUTSOURCE CT Service: Unknown (Case [id number] COMPLETE) NON [place] CT ABDOMEN/PELVIS (CT Detailed) CPT:58653 Reason for Study: OUTSIDE STUDY Clinical History: [...] Diagnostic Code: VERIFIED BY: / *ELECTRONICALLY FILED* [facility] Pathology Reports: +/- 30 days of the [...] AM LR MICROBIOLOGY RE PORT: Reporting Lab: [facility] [CLIA# [id number]] [place] [address] Accession [UID]: [id number] [[id number]] Received: Apr 21, 2024@08:16 Collection sample: URINE Collection date: Apr 21, 2024 07:28 Provider: ANANDA HUGGINS Comment on specimen: RECEIVED IN STERILE CUP Test(s) ordered: CULTURE & SUSCEPTIBILITY...... completed: Apr 22, 2024 * BACTERIOLOGY FINAL REPORT => Apr 22, 2024 08:38 TECH CODE: [id number] CULTURE RESULTS: NO GROWTH 24 HOURS Bacteriology Remark(s): THIS REPORT IS FINAL =--=--=--=--=--=--=--=--=--=--=--=- -=--=--=--=--=--=--=--=--=--=--=--= --=--=-- Performing Laboratory: Bacteriology Report Performed By: [facility] [CLIA# [id number]] [place] [address] [facility]
--- OUTSIDE RECORDS SUMMARY | 2024-07-16 07:07 | XMS_ITS ---
[place] DAILY HOSPITALIZATION DATA [facility] Encounter Summary Created on: July 16, 2024 FLACA WEAVER : 1950 Sex: Male Author Name [facility] [place] [facility] [place] [facility] [place] Address [address] [place] [address] Care Team Providers Care Lace Mender Name Role Phone JATINDER BENITEZ Primary Care [...] PART A Sep 29, 2016 PART A [id number] [phone] JUDY WEAVER PATIENT Selected Encounter This section includes the information on record at [place] for the Encounter. Date/Time Encounter Type Encounter Description Reason Pro vider Source Apr 23, 2024 01:49 PM Inpatient Visit DAILY HOSPITALIZATION DATA [facility] Encounter Template Text not used by [place] [...] 01:45 PM AMBULATORY - SURGERY [facility] Active, Pending, and [...] of theEncounter. The data comes from all [place] treatment facilities. Test Date/Time Test Type Test Details Facility Name Apr 26, 2024 10:10 AM Laboratory - Microbiology Order GRAM STAIN WOUND OTHER WC ONCE ~For Test: GRAM STAIN ~JUAN drain culture/gram stain [facility] Apr 26, 2024 10:10 AM Laboratory - Microbiology Order CULTURE & SUSCEPTIBILITY WOUND OTHER WC ONCE ~For Test: CULTURE & SUSCEPTIBILITY ~Culture sample from JUAN drain output [facility] May 28, 2024 12:00 AM Laboratory - Blood Bank Order TYPE & SCREEN - LAB BLOOD SP [facility] Lab Results: +/- 30 days of the encounter This section includes the Chemistry and Hematology Lab Results on record with [place] for the patient. Radiology Reports and Pathology Reports are provided separately, in subsequent sections. Lab Results This section contains the Chemistry/Hematology Results that were resulted 30 days before or 30 daysafter the date of the Encounter. Date/Time Source Result Type Result - Unit Interpretation Reference Range Comment May 21, 2024 06:[address] [facility] BASIC METABOLIC PANEL+MG Specimen Type: PLASMA No comment entered. Ordering Provider: GOLDIE BENITEZ Report Released Date/Time: May 15, 2024 08:34 AM Reporting Lab: [facility] [phone] Performing Lab: [facility] [id number] CREATININE 0.9 mg/dL 0.7-1.2 UREA NITROGEN 18 mg/dL 8-26 GLUCOSE 126 mg/dL H 70-100 SODIUM 138 mmol/L 136-145 POTASSIUM 4.0 mmol/L 3.5-5.1 CHLORIDE 105 mmol/L 98-107 CO2 24 mmol/L 22-29 CALCIUM 9.8 mg/dL 8.4-10.2 MAGNESIUM 2.0 mg/dL 1.6-2.6 ANION GAP 9 mmol/L 5-15 .CREAT EGFR(CKD-EPI) >90 >60 May 04, 2024 08:[address] [facility] BASIC METABOLIC PANEL+MG Specimen Type: PLASMA No comment entered. Ordering Provider: GOLDIE BENITEZ Report Released Date/Time: May 03, 2024 12:52 PM Reporting Lab: [facility] [id number] Performing Lab: [facility] [phone] CREATININE 0.7 mg/dL 0.7-1.2 UREA NITROGEN 13 mg/dL 8-26 GLUCOSE 91 mg/dL 70-100 SODIUM 141 mmol/L 136-145 POTASSIUM 3.6 mmol/L 3.5-5.1 CHLORIDE 109 mmol/L H 98-107 CO2 25 mmol/L 22-29 CALCIUM 8.9 mg/dL 8.4-10.2 MAGNESIUM 2.0 mg/dL 1.6-2.6 ANION GAP 7 mmol/L 5-15 .CREAT EGFR(CKD-EPI) >90 >60 Apr 26, 2024 07:[address] [facility] BASIC METABOLIC PANEL+MG Specimen Type: PLASMA No comment entered. Ordering Provider: JONO RANDOLPH Report Released Date/Time: Apr 25, 2024 02:50 PM Reporting Lab: [facility] [phone] Performing Lab: [facility] [phone] CREATININE 0.7 mg/dL 0.7-1.2 UREA NITROGEN 15 mg/dL 8-26 GLUCOSE 106 mg/dL H 70-100 SODIUM 139 mmol/L 136-145 POTASSIUM 3.4 mmol/L L 3.5-5.1 CHLORIDE 105 mmol/L 98-107 CO2 25 mmol/L 22-29 CALCIUM 8.5 mg/dL 8.4-10.2 MAGNESIUM 2.2 mg/dL 1.6-2.6 ANION GAP 9 mmol/L 5-15 .CREAT EGFR(CKD-EPI) >90 >60 Apr 25, 2024 05:[address] [facility] BASIC METABOLIC PANEL+MG Specimen Type: PLASMA No comment entered. Ordering Provider: GIOVANNI ADLER Report Released Date/Time: Apr 25, 2024 05:04 PM Reporting Lab: [facility] [phone] Performing Lab: [facility] [phone] CREATININE 0.7 mg/dL 0.7-1.2 UREA NITROGEN 15 mg/dL 8-26 GLUCOSE 104 mg/dL H 70-100 SODIUM 139 mmol/L 136-145 POTASSIUM 3.2 mmol/L L 3.5-5.1 CHLORIDE 103 mmol/L 98-107 CO2 28 mmol/L 22-29 CALCIUM 8.5 mg/dL 8.4-10.2 MAGNESIUM 2.2 mg/dL 1.6-2.6 ANION GAP 8 mmol/L 5-15 .CREAT EGFR(CKD-EPI) >90 >60 Apr 25, 2024 07:[address] [facility] BASIC METABOLIC PANEL+MG Specimen Type: PLASMA No comment entered. Ordering Provider: GIOVANNI ADLER Report Released Date/Time: Apr 24, 2024 12:37 PM Reporting Lab: [facility] [phone] Performing Lab: [facility] [phone] CREATININE 0.7 mg/dL 0.7-1.2 UREA NITROGEN 14 mg/dL 8-26 GLUCOSE 127 mg/dL H 70-100 SODIUM 139 mmol/L 136-145 POTASSIUM 2.9 mmol/L L 3.5-5.1 CHLORIDE 101 mmol/L 98-107 CO2 29 mmol/L 22-29 CALCIUM 8.7 mg/dL 8.4-10.2 MAGNESIUM 2.3 mg/dL 1.6-2.6 ANION GAP 9 mmol/L 5-15 .CREAT EGFR(CKD-EPI) >90 >60 Apr 24, 2024 04:[address] [facility] BASIC METABOLIC PANEL+MG Specimen Type: PLASMA No comment entered. Ordering Provider: GIOVANNI ADLER Report Released Date/Time: Apr 24, 2024 12:37 PM Reporting Lab: [facility] [phone] Performing Lab: [facility] [phone] CREATININE 0.7 mg/dL 0.7-1.2 UREA NITROGEN 16 mg/dL 8-26 GLUCOSE 97 mg/dL 70-100 SODIUM 138 mmol/L 136-145 POTASSIUM 2.7 mmol/L L 3.5-5.1 CHLORIDE 99 mmol/L 98-107 CO2 30 mmol/L H 22-29 CALCIUM 8.4 mg/dL 8.4-10.2 MAGNESIUM 2.1 mg/dL 1.6-2.6 ANION GAP 9 mmol/L 5-15 .CREAT EGFR(CKD-EPI) >90 >60 Apr 24, 2024 07:[address] [facility] BASIC METABOLIC PANEL+MG Specimen Type: PLASMA Comment: Critical Value Reported To: Cait Zamorano RN 8-27-24@08[facility]. Critical value report confirmed. Ordering Provider: AARON VICTOR Report Released Date/Time: Apr 23, 2024 05:30 PM Reporting Lab: [facility] [phone] Performing Lab: [facility] [phone] CREATININE 0.7 mg/dL 0.7-1.2 UREA NITROGEN 16 mg/dL 8-26 GLUCOSE 105 mg/dL H 70-100 SODIUM 138 mmol/L 136-145 POTASSIUM 2.3 mmol/L LL 3.5-5.1 CHLORIDE 98 mmol/L 98-107 CO2 29 mmol/L 22-29 CALCIUM 8.3 mg/dL L 8.4-10.2 MAGNESIUM 2.2 mg/dL 1.6-2.6 ANION GAP 11 mmol/L 5-15 .CREAT EGFR(CKD-EPI) >90 >60 Apr 24, 2024 07:[address] [facility] CBC & DIFF Specimen Type: BLOOD Comment: Automated Differential Performed Ordering Provider: AARON VICTOR Report Released Date/Time: Apr 23, 2024 05:30 PM Reporting Lab: [facility] [phone] Performing Lab: [facility] [phone] WBC 10.49 10*3/uL 4.0-11.0 RBC 3.83 10*6/uL [...] 0-0.1 Apr 23, 2024 01:[address] [facility] LACTIC ACID Specimen Type: PLASMA No comment entered. Ordering Provider: AARON VICTOR Report Released Date/Time: Apr 23, 2024 12:05 PM Reporting Lab: [facility] [phone] Performing Lab: [facility] [phone] LACTIC ACID 1.5 mmol/L 0.5-2.2 Apr 23, 2024 01:[address] [facility] ACT PART THROMBO TIME Specimen Type: PLASMA No comment entered. Ordering Provider: AARON VICTOR Report Released Date/Time: Apr 23, 2024 12:05 PM Reporting Lab: [facility] [phone] Performing Lab: [facility] [address] APTT 29.3 s 25.1-36.5 Apr 23, 2024 01:[address] [facility] PROTHROMBIN TIME/INR Specimen Type: PLASMA No comment entered. Ordering Provider: AARON VICTOR Report Released Date/Time: Apr 23, 2024 12:05 PM Reporting Lab: [facility] [phone] Performing Lab: [facility] [phone] .INR 1.2 H 0.8-1.1 .PT 14.5 s H 9.4-12.5 Apr 23, 2024 01:[address] [facility] COMPREHENSIVE METABOLIC PANEL+MG Specimen Type: PLASMA No comment entered. Ordering Provider: AARON VICTOR Report Released Date/Time: Apr 23, 2024 12:05 PM Reporting Lab: [facility] [phone] Performing Lab: [facility] [phone] CREATININE 0.7 mg/dL 0.7-1.2 UREA NITROGEN 19 [...] >60 Apr 23, 2024 01:[address] [facility] CBC & DIFF Specimen Type: BLOOD Comment: Automated Differential Performed Ordering Provider: AARON VICTOR Report Released Date/Time: Apr 23, 2024 12:05 PM Reporting Lab: [facility] [phone] Performing Lab: [facility] [address] WBC 12.50 10*3/uL H 4.0-11.0 RBC 4.07 [...] 0-0.1 Apr 21, 2024 07:[address] [facility] URINALYSIS Specimen Type: URINE No comment entered. Ordering Provider: ANANDA HUGGINS Report Released Date/Time: Apr 21, 2024 07:37 AM Reporting Lab: [facility] [address] Performing Lab: [facility] [address] [facility] [address] URINE COLOR COLORLESS SPECIFIC GRAVITY 1.009 1.003-1.03 [...] Apr 23, 2024 01:59 PM 211.1 30 [facility] Social History: Smoking Status (Most [...] 2023 11:30 AM VA-TOBACCO FORMER USER [facility] Tobacco Use History This section includes a history of the smoking, or tobacco-related health factors, that were collected on or before the date of the Encounter. The data comes from the [place] facility where the Encounter took place. Date/Time Smoking Status/Tobacco Use Comment F acility May 06, 2023 11:30 AM VA-TOBACCO QUIT [address] [facility] Jun 04, 2022 09:00 AM VA-TOBACCO FORMER USER [facility] Jun 04, 2022 09:00 AM VA-TOBACCO QUIT [address] [facility] Jul 10, 2021 08:00 AM VA-TOBACCO FORMER USER [facility] Jul 10, 2021 08:00 AM VA-TOBACCO QUIT 5 TO < [address] [facility] May 23, 2020 08:30 AM VA-TOBACCO FORMER USER [facility] May 23, 2020 08:30 AM VA-TOBACCO QUIT 5 TO < [address] [facility] Mar 20, 2019 04:03 PM VA-TOBACCO FORMER USER [facility] Mar 20, 2019 04:03 PM VA-TOBACCO QUIT 5 TO < [address] [facility] Mar 21, 2018 08:13 AM FORMER TOBACCO USER 7Y OR GREATE R [facility] Feb 24, 2017 09:24 AM FORMER TOBACCO USER 7Y OR GREATE R [facility] January 07, 2016 08:01 AM FORMER TOBACCO USE >1Y <7Y [facility] Feb 03, 2015 07:58 AM FORMER TOBACCO USE <1Y [facility] Feb 26, 2014 08:41 AM CURRENT TOBACCO USER [facility] May 13, 2011 01:45 [address] TOBACCO USER [facility] Advance Directives: All historical and current Section Date Range: From patient's date of to the date document was created. This section includes ALL of a patient's completed or amended [place] Advance and Rescinded Directives. The entries below indicate that a directive exists for the patient, but an actual copy is not included with this document. The data comes from all [facility]. Date Advance Directives Provider Source [...] FISTULOGRAM / S INOGRAM (P): FLACA WEAVER [id number] -1950 M Exm Date: MAY 11, 2024@12:39 Req Phys: PALMIRA POWELL Loc: [facility] C/R FOLLOW-UP CLINIC (Req' Img Loc: INTERVENTIONAL RADIOLOGY Service: [place] [address] (Case [id number] COMPLETE) IR INJECTION FOR SINOGRAM DIAGNOS(ANI Detailed) CPT:00657 Contrast Media : Non-ionic Iodinated Reason for Study: s/p drain placement for diverticular abscess- assess for drain (Case [id number] COMPLETE) IR FISTULOGRAM OR SINOGRAM (ANI Detailed) CPT:76270 Contrast Media : unspecified contrast media (Case [id number] COMPLETE) IR DRAINAGE CATHETER SUPPLY (ANI Detailed) CPT:C1729 Clinical History: IS NOT under investigation for COVID-19 or is COVID-19 negative s/p drain placement for diverticular abscess- assess for drain removal Contact number for responsible provider who can be reached for any questions or notifications of critical findings: [phone] Palmira Powell MD LAST CREATININE 0.7 (05/04/24) Report Status: Verified Date Reported: MAY 11, 2024 Date Verified: MAY 11, 2024 Rfid Analyst E-Sig:/ES/AMINTA ESCALONA MD Report: PROCEDURES Abdominal drain [...] Interpreting Staff: AMINTA ESCALONA MD, INTERVENTIONAL RADIOLOGIST (Rfid Analyst) /AMINTA VELAZCO [facility] May 11, 2024 11:[address] (AP) ABDOMEN/PE LVIS (P): MEGFLACA LOBO [id number] -1950 M Exm Date: MAY 11, 2024@11:40 Req Phys: PALMIRA POWELL Loc: [facility] C/R FOLLOW-UP CLINIC (Req' Img Loc: CT IMAGING Service: [place] [address] (Case [id number] COMPLETE) CT (AP) ABDOMEN/PELVIS W CONTRAST(CT Detailed) CPT:87664 Contrast Media : Non-ionic Iodinated Reason for [...] any questions or notifications of critical findings: [phone] Palmira Powell MD LAST 3: Collection DT [...] PLASMA .CREAT EGFR(CKD-E >90 Ref: >=60 Allergies: ([place] only) TERAZOSIN (Mar 13, 2015) Report Status: Verified Date Reported: MAY 11, 2024 Date Verified: MAY 11, 2024 Rfid Analyst E-Sig:/ES/LISA PENDLETON MD Report: CT abdomen and [...] Primary Interpreting Staff: LISA PENDLETON MD, RADIOLOGIST (Rfid Analyst) /JRT LISA PENDLETON [facility] Apr 24, 2024 02:13 PM ABSCESS DRAIN PLAC EMENT PERITONEAL (P): FLACA WEAVER [id number] -1950 M Exm Date: APR 24, 2024@14:13 Req Phys: TAURUS WOOD Amanda Loc: 3KS/04-24-2024@16:07 Img Loc: INTERVENTIONAL RADIOLOGY Service: PRIMARY CARE [place] [address] (Case [id number] COMPLETE) IR PERITONEAL/RETROPERITONEAL PER(ANI Detailed) CPT:22295 Reason for Study: diverticular abscess Clinical History: [...] any questions or notifications of critical findings: [phone] If ordering provider is a trainee, enter the name and contact information of the responsible staff physician. Palmira Powell MD LAST CREATININE 0.7 (04/23/24) Report Status: Verified Date Reported: APR 24, 2024 Date Verified: APR 24, 2024 Rfid Analyst E-Sig:/ES/SADIA DEE MD Report: PROCEDURES: Placement of [...] anesthesia. Using real-time CT fluoroscopy, a 5 Czech Yueh catheter was advanced into the collection in the left lower quadrant. A wire was coiled in the collection. The tract into the collection was dilated to accommodate the 12 Czech locking pigtail drainage catheter. The catheter was secured to the skin with monofilament suture and connected to JUAN bulb suction. Impression: Successful placement of a 12 Czech locking pigtail drainage catheter in the left lower quadrant abscess. This catheter is connected to JUAN bulb suction with flushes, as ordered. I, SADIA DEE, have reviewed the images and report. Primary Interpreting Staff: SADIA DEE MD, RADIOLOGIST (Rfid Analyst) Primary Interpreting Resident: JEFFREY FLOWER MD, MAINTENANCE MECHANIC ENGINE /SADIA SNYDER [facility] Apr 24, 2024 02:[address] NEEDLE PLACEMEN T (P): FLACA WEAVER [id number] -1950 M Exm Date: APR 24, 2024@14:11 Req Phys: ISRAELTAURUS KADY Amanda Loc: 3K04-24-2024@16:07 Img Loc: CT IMAGING Service: PRIMARY CARE [place] [address] (Case [id number] COMPLETE) CT SCAN FOR NEEDLE PLACEMENT (CT Detailed) CPT:76560 Reason for Study: diverticular abscess Clinical History: Report Status: Verified Date Reported: APR 24, 2024 Date Verified: APR 24, 2024 Rfid Analyst E-Sig:/ES/SADIA DEE MD Report: PROCEDURES: Placement of [...] anesthesia. Using real-time CT fluoroscopy, a 5 Czech Yueh catheter was advanced into the collection in the left lower quadrant. A wire was coiled in the collection. The tract into the collection was dilated to accommodate the 12 Czech locking pigtail drainage catheter. The catheter was secured to the skin with monofilament suture and connected to JUAN bulb suction. Impression: Successful placement of a 12 Czech locking pigtail drainage catheter in the left lower quadrant abscess. This catheter is connected to JUAN bulb suction with flushes, as ordered. I, SADIA DEE, have reviewed the images and report. Primary Interpreting Staff: SADIA DEE MD, RADIOLOGIST (Rfid Analyst) Primary Interpreting Resident: JEFFREY FLOWER MD, MAINTENANCE MECHANIC ENGINE /SADIA SNYDER [facility] Apr 23, 2024 06:36 AM [facility] CT ABDOMEN/ PELVIS: FLACA WEAVER [id number] -1950 M Exm Date: APR 23, 2024@06:36 Req Phys: MCKAY VICTOR [facility] Loc: 04-24-2024@10:25 Img Loc: OUTSOURCE CT Service: Unknown (Case [id number] COMPLETE) NON [place] CT ABDOMEN/PELVIS (CT Detailed) CPT:97407 Reason for Study: OUTSIDE STUDY Clinical History: OUTSIDE STUDY Report Status: Electronically Filed Date Reported: APR 24, 2024 Report: This is an outside Imaging study and/or report imported for continuity of patient care. This Imaging study and/or report was not reviewed or verified by a [place] Radiologist. Impression: This is an outside Imaging study and/or report imported for continuity of patient care. This Imaging study and/or report was not reviewed or verified by a [place] Radiologist. Primary Diagnostic Code: VERIFIED BY: / *ELECTRONICALLY FILED* [facility] Pathology Reports: +/- 30 days of [...] comes from all [place] treatment facilities. Date/Time Pathology Report Provider Source Apr 21, 2024 07:28 AM LR MICROBIOLOGY RE PORT: Reporting Lab: [facility] [CLIA# [id number]] [place] [address] Accession [UID]: [id number] [[id number]] Received: Apr 21, 2024@08:16 Collection sample: URINE Collection date: Apr 21, 2024 07:28 Provider: ANANDA HUGGINS Comment on specimen: RECEIVED IN STERILE CUP Test(s) ordered: CULTURE & SUSCEPTIBILITY...... completed: Apr 22, 2024 * BACTERIOLOGY FINAL REPORT => Apr 22, 2024 08:38 TECH CODE: [id number] CULTURE RESULTS: NO GROWTH 24 HOURS Bacteriology Remark(s): THIS REPORT IS FINAL =--=--=--=--=--=--=--=--=--=--=--=- -=--=--=--=--=--=--=--=--=--=--=--= --=--=-- Performing Laboratory: Bacteriology Report Performed By: [facility] [CLIA# [id number]] [place] [address] [facility]
[2024-07-16 07:08] LABS: Anion Gap 18 mEq/L (7-15); Blood Urea Nitrogen* 100 mg/dL (7-30); Carbon Dioxide* 20 mmol/L (20-32); Glucose* 135 mg/dL (60-115)
--- OUTSIDE RECORDS SUMMARY | 2024-07-16 07:08 | XMS_ITS | Encounter Summary ---
Author Name [facility] Organization [facility] Address [address] [place] [address] Care Team Providers Care Software Lead Name Role Phone JATINDER BENITEZ Primary Care [...] PART A Sep 29, 2016 PART A [id number] [phone] JUDY WEAVER PATIENT Selected Encounter This section includes the information on record at [place] for the Encounter. Date/Time Encounter Type Encounter Description Reason Provider Source Apr 24, 2024 08:46 AM Inpatient Visit CARDIAC ECHO CAITLIN BENAVIDES Encounter Template Text not used by [place] Plan of Treatment: Future Appointments (+ 6 months) and Future Tests (+/- 45 days) The Plan of Treatment section includes future care activities for the patient from all [place] treatmentfacilities. This section includes future appointments and future orders which are active, pending or scheduled. Future Appointments This section includes appointments that were scheduled to occur 6 months from the date of the Encounter, up to a maximum of 20 appointments. The data comes from all [place] treatment facilities. Appointment Date/Time Appointment Type Appointme nt Facility Name Apr 27, 2024 02:30 PM [place] [facility] May 02, 2024 10:00 AM [place] [facility] May 04, 2024 09:00 AM [place] [facility] May 07, 2024 08:45 [facility] May 08, 2024 02:00 PM [place] [place] [facility] May 09, 2024 07:30 AM [place] [facility] May 11, 2024 01:00 PM [place] [facility] May 11, 2024 03:30 PM [place] [facility] May 15, 2024 08:30 AM [place] [facility] May 16, 2024 07:45 AM [place] [facility] May 22, 2024 07:30 AM [place] [facility] May 22, 2024 05:30 PM [place] [facility] May 25, 2024 08:22 AM [place]ONE [place] [facility] May 25, 2024 09:00 AM [place] [facility] May 28, 2024 08:15 AM [place] [facility] Jun 04, 2024 11:30 AM [place] [facility] Jun 08, 2024 11:00 AM AM[facility] Jun 08, 2024 12:45 PM [place] [facility] Jun 08, 2024 01:15 PM [facility] Jun 08, 2024 01:45 PM AMBULATORY - SURGERY [facility] Active, Pending, and Scheduled Orders This section includes a listing of several types of active, pending, and scheduled orders, including clinic medications orders, diagnostic test orders, procedure orders and consult orders; where the start date of the order is 45 days before the date of the Encounter or 45 days after the date of theEncounter. The data comes from all [place] treatment facilities. Test Date/Time Test Type Test [...] ~JUAN drain culture/gram stain [facility] May 28, 2024 12:00 AM Laboratory - Blood Bank Order TYPE & SCREEN - LAB BLOOD SP [facility] Jun 08, 2024 09:57 AM Laboratory - Chemistry Order URINALYSIS URINE WC ONCE [facility] Lab Results: +/- 30 days of the encounter This section includes the Chemistry and Hematology Lab Results on record with [place] for the patient. Radiology Reports and Pathology Reports are provided separately, in subsequent sections. Lab Results This section contains the Chemistry/Hematology Results that were resulted 30 days before or 30 daysafter the date of the Encounter. Date/Time Source Result Type Result - Unit Interpretation Reference Range Comment May 21, 2024 06:59 AM [facility] BASIC METABOLIC PANEL+MG Specimen Type: PLASMA No comment entered. Ordering Provider: GOLDIE BENITEZ Report Released Date/Time: May 15, 2024 08:34 AM Reporting Lab: [facility] [address] Performing Lab: [facility] [address] CREATININE 0.9 mg/dL 0.7-1.2 UREA NITROGEN 18 mg/dL 8-26 GLUCOSE 126 mg/dL H 70-100 SODIUM 138 mmol/L 136-145 POTASSIUM 4.0 mmol/L 3.5-5.1 CHLORIDE 105 mmol/L 98-107 CO2 24 mmol/L 22-29 CALCIUM 9.8 mg/dL 8.4-10.2 MAGNESIUM 2.0 mg/dL 1.6-2.6 ANION GAP 9 mmol/L 5-15 .CREAT EGFR(CKD-EPI) >90 >60 May 04, 2024 08:36 AM [facility] BASIC METABOLIC PANEL+MG Specimen Type: PLASMA No comment entered. Ordering Provider: GOLDIE BENITEZ Report Released Date/Time: May 03, 2024 12:52 PM Reporting Lab: [facility] [address] Performing Lab: [facility] [address] CREATININE 0.7 mg/dL 0.7-1.2 UREA NITROGEN 13 mg/dL 8-26 GLUCOSE 91 mg/dL 70-100 SODIUM 141 mmol/L 136-145 POTASSIUM 3.6 mmol/L 3.5-5.1 CHLORIDE 109 mmol/L H 98-107 CO2 25 mmol/L 22-29 CALCIUM 8.9 mg/dL 8.4-10.2 MAGNESIUM 2.0 mg/dL 1.6-2.6 ANION GAP 7 mmol/L 5-15 .CREAT EGFR(CKD-EPI) >90 >60 Apr 26, 2024 07:16 AM [facility] BASIC METABOLIC PANEL+MG Specimen Type: PLASMA No comment entered. Ordering Provider: JONO RANDOLPH Report Released Date/Time: Apr 25, 2024 02:50 PM Reporting Lab: [facility] [address] Performing Lab: [facility] [address] CREATININE 0.7 mg/dL 0.7-1.2 UREA NITROGEN 15 [...] Apr 25, 2024 05:04 PM Reporting Lab: [facility] [address] Performing Lab: [facility] [address] CREATININE 0.7 mg/dL 0.7-1.2 UREA NITROGEN 15 [...] Apr 24, 2024 12:37 PM Reporting Lab: [facility] [address] Performing Lab: [facility] [address] CREATININE 0.7 mg/dL 0.7-1.2 UREA NITROGEN 14 [...] Type: PLASMA No comment entered. Ordering Provider: GIVOANNI ADLER Report Released Date/Time: Apr 24, 2024 12:37 PM Reporting Lab: [facility] [address] Performing Lab: [facility] [address] CREATININE 0.7 mg/dL 0.7-1.2 UREA NITROGEN 16 [...] Critical Value Reported To: Cait Zamorano RN 8--@[address] [place] [address]. Critical value report confirmed. Ordering Provider: AARON VICTOR Report Released Date/Time: Apr 23, 2024 05:30 PM Reporting Lab: [facility] [address] Performing Lab: [facility] [address] CREATININE 0.7 mg/dL 0.7-1.2 UREA NITROGEN 16 [...] Apr 23, 2024 05:30 PM Reporting Lab: [facility] [address] Performing Lab: [facility] [address] WBC 10.49 10*3/uL 4.0-11.0 RBC 3.83 10*6/uL [...] Apr 23, 2024 12:05 PM Reporting Lab: [facility] [address] Performing Lab: [facility] [address] LACTIC ACID 1.5 mmol/L 0.5-2.2 Apr 23, 2024 01:20 PM [facility] PROTHROMBIN TIME/INR Specimen Type: PLASMA No comment entered. Ordering Provider: AARON VICTOR Report Released Date/Time: Apr 23, 2024 12:05 PM Reporting Lab: [facility] [address] Performing Lab: [facility] [address] .INR 1.2 H 0.8-1.1 .PT 14.5 s H 9.4-12.5 Apr 23, 2024 01:20 PM [facility] ACT PART THROMBO TIME Specimen Type: PLASMA No comment entered. Ordering Provider: AARON VICTOR Report Released Date/Time: Apr 23, 2024 12:05 PM Reporting Lab: [facility] [address] Performing Lab: [facility] [address] APTT 29.3 s 25.1-36.5 Apr 23, 2024 01:20 PM [facility] COMPREHENSIVE METABOLIC PANEL+MG Specimen Type: PLASMA No comment entered. Ordering Provider: AARON VICTOR Report Released Date/Time: Apr 23, 2024 12:05 PM Reporting Lab: [facility] [address] Performing Lab: [facility] [address] CREATININE 0.7 mg/dL 0.7-1.2 UREA NITROGEN 19 [...] Apr 23, 2024 12:05 PM Reporting Lab: [facility] [address] Performing Lab: [facility] [address] WBC 12.50 10*3/uL H 4.0-11.0 RBC 4.07 [...] Apr 21, 2024 07:37 AM Reporting Lab: [facility] [address] Performing Lab: [facility] [address] URINE COLOR COLORLESS SPECIFIC GRAVITY 1.009 1.003-1.03 [...] Source Apr 24, 2024 10:48 PM 5 [facility] Apr 24, 2024 06:35 PM 5 [facility] Apr 24, 2024 04:00 PM 59 147/71 14 0 [facility] Apr 24, 2024 12:15 PM 0 [facility] Apr 24, 2024 10:12 AM 4 [facility] Social History: Smoking Status (Most current) and Tobacco Use (All prior to encounter date) This section includes the most current, and the historical, smoking and tobacco- related health factors from the [place] facility where the Encounter took place. Current Smoking Status This section includes the most current smoking, or tobacco-related health factor, from the [place] facility where the Encounter took place. Date/Time Current Smoking Status Comment Juan Manuel putnam May 06, 2023 11:30 AM VA-TOBACCO FORMER USER [facility] Tobacco Use History This section includes a history of the smoking, or tobacco-related health factors, that were collected on or before the date of the Encounter. The data comes from the [place] facility where the Encounter took place. Date/Time [...] ALL of a patient's completed or amended [place] Advance and Rescinded Directives. The entries below indicate that a directive exists for the patient, but an actual copy is not included with this document. The data comes from all [facility]. Date Advance Directives Provider Source Mar 23, 2016 CLINICAL WARNING [facility] Radiology Reports: +/- 30 days of [...] the Encounter. The data comes from all [place] treatment facilities. Date/Time Radiology Report Provider Source May 11, 2024 12:39 PM IR FISTULOGRAM / S INOGRAM (P): FLACA WEAVER [id number] -1950 M Exm Date: MAY 11, 2024@12:39 Req Phys: PALMIRA POWELL Loc: [facility] C/R FOLLOW-UP CLINIC (Req' Img Loc: INTERVENTIONAL RADIOLOGY Service: [place] [address] (Case [id number] COMPLETE) IR INJECTION FOR SINOGRAM DIAGNOS(ANI Detailed) CPT:11849 Contrast Media : Non-ionic Iodinated Reason for Study: s/p drain placement for diverticular abscess- assess for drain (Case [id number] COMPLETE) IR FISTULOGRAM OR SINOGRAM (ANI Detailed) CPT:03015 Contrast Media : unspecified contrast media (Case [id number] COMPLETE) IR DRAINAGE CATHETER SUPPLY (ANI Detailed) CPT:C1729 Clinical History: IS NOT under investigation for COVID-19 or is COVID-19 negative s/p drain placement for diverticular abscess- assess for drain removal Contact number for responsible provider who can be reached for any questions or notifications of critical findings: [phone] Palmira Powell MD LAST CREATININE 0.7 (05/04/24) Report Status: Verified Date Reported: MAY 11, 2024 Date Verified: MAY 11, 2024 Library Specialist E-Sig:/ES/AMINTA ESCALONA MD Report: PROCEDURES Abdominal drain [...] Interpreting Staff: AMINTA ESCALONA MD, INTERVENTIONAL RADIOLOGIST (Library Specialist) /AMINTA VELAZCO [facility] May 11, 2024 11:[address] (AP) ABDOMEN/PE LVIS (P): FLACA WEAVER [id number] -1950 M Exm Date: MAY 11, 2024@11:40 Req Phys: PALMIRA POWELL Loc: [facility] C/R FOLLOW-UP CLINIC (Req' Img Loc: CT IMAGING Service: [place] [address] (Case [id number] COMPLETE) CT (AP) ABDOMEN/PELVIS W CONTRAST(CT Detailed) CPT:32849 Contrast Media : Non-ionic Iodinated Reason for [...] any questions or notifications of critical findings: [phone] Palmira Powell MD LAST 3: Collection DT [...] PLASMA .CREAT EGFR(CKD-E >90 Ref: >=60 Allergies: ([place] only) TERAZOSIN (Mar 13, 2015) Report Status: Verified Date Reported: MAY 11, 2024 Date Verified: MAY 11, 2024 Library Specialist E-Sig:/ES/LISA PENDELTON MD Report: CT abdomen and pelvis with [...] Primary Interpreting Staff: LISA PENDLETON MD, RADIOLOGIST (Library Specialist) /JRT LISA PENDLETON [facility] Apr 24, 2024 02:13 PM ABSCESS DRAIN PLAC EMENT PERITONEAL (P): FLACA WEAVER [id number] -1950 M Exm Date: APR 24, 2024@14:13 Req Phys: ISRAELTAURUS KADY Amanda Loc: 3K04-24-2024@16:07 Img Loc: INTERVENTIONAL RADIOLOGY Service: [place] [address] (Case [id number] COMPLETE) IR PERITONEAL/RETROPERITONEAL PER(ANI Detailed) CPT:97946 Reason for Study: diverticular abscess Clinical History: [...] any questions or notifications of critical findings: [phone] If ordering provider is a trainee, enter the name and contact information of the responsible staff physician. Palmira Powell MD LAST CREATININE 0.7 (04/23/24) Report Status: Verified Date Reported: APR 24, 2024 Date Verified: APR 24, 2024 Library Specialist E-Sig:/ES/SADIA DEE MD Report: PROCEDURES: Placement [...] anesthesia. Using real-time CT fluoroscopy, a 5 [place] [employer] catheter was advanced into the collection in the left lower quadrant. A wire was coiled in the collection. The tract into the collection was dilated to accommodate the 12 [place] Islander locking pigtail drainage catheter. The catheter was secured to the skin with monofilament suture and connected to JUAN bulb suction. Impression: Successful placement of a 12 [place] locking pigtail drainage catheter in the left lower quadrant abscess. This catheter is connected to JUAN bulb suction with flushes, as ordered. I, SADIA DEE, have reviewed the images and report. Primary Interpreting Staff: SADIA DEE MD, RADIOLOGIST (Library Specialist) Primary Interpreting Resident: JEFFREY FLOWER MD, NEUROPSYCHIATRIST /SADIA SNYDER [facility] Apr 24, 2024 02:[address] NEEDLE PLACEMEN T (P): FLACA WEAVER [id number] -1950 M Exm Date: APR 24, 2024@14:11 Req Phys: TAURUS WOOD Loc: 3K04-24-2024@16:07 Im Loc: CT IMAGING Service: [place] [address] (Case [id number] COMPLETE) CT SCAN FOR NEEDLE PLACEMENT (CT Detailed) CPT:64898 Reason for Study: diverticular abscess Clinical History: Report Status: Verified Date Reported: APR 24, 2024 Date Verified: APR 24, 2024 Library Specialist E-Sig:/ES/SADIA DEE MD Report: PROCEDURES: Placement [...] anesthesia. Using real-time CT fluoroscopy, a 5 [place] Yueh catheter was advanced into the collection in the left lower quadrant. A wire was coiled in the collection. The tract into the collection was dilated to accommodate the 12 [place] locking pigtail drainage catheter. The catheter was secured to the skin with monofilament suture and connected to JUAN bulb suction. Impression: Successful placement of a 12 [place] locking pigtail drainage catheter in the left lower quadrant abscess. This catheter is connected to JUAN bulb suction with flushes, as ordered. I, SADIA DEE, have reviewed the images and report. Primary Interpreting Staff: SADIA DEE MD, RADIOLOGIST (Library Specialist) Primary Interpreting Resident: JEFFREY FLOWER MD, NEUROPSYCHIATRIST /SADIA SNYDER [facility] Apr 23, 2024 06:[address] [place] [address] ABDOMEN/ PELVIS: FLACA WEAVER [id number] -1950 Ex Date: APR 23, 2024@06:36 Req Phys: MCKAY VICTOR [facility] Loc: 3K04-24-2024@10:25 [facility]: OUT[place] CT Service: Unknown (Case [id number] COMPLETE) NON [place] CT ABDOMEN/PELVIS (CT Detailed) CPT:26473 Reason for Study: OUTSIDE STUDY Clinical History: OUTSIDE STUDY Report Status: Electronically Filed Date Reported: APR 24, 2024 Report: This is an outside Imaging study and/or report imported for continuity of patient care. This Imaging study and/or report was not reviewed or verified by a [place] Radiologist. Impression: This is an outside Imaging study and/or report imported for continuity of patient care. This Imaging study and/or report was not reviewed or verified by a [place] Radiologist. Primary Diagnostic Code: VERIFIED BY: / [...] the Encounter. The data comes from all [place] treatment facilities. Date/Time Pathology Report Provider Source Apr 21, 2024 07:28 AM LR MICROBIOLOGY RE PORT: Reporting Lab: [facility] [CLIA# [id number]] [place] [address] Accession [UID]: [id number] [[id number]] Received: Apr 21, 2024@08:16 Collection sample: URINE Collection date: Apr 21, 2024 07:28 Provider: ANANDA HUGGINS Comment on specimen: RECEIVED IN STERILE CUP Test(s) ordered: CULTURE & SUSCEPTIBILITY...... completed: Apr 22, 2024 * BACTERIOLOGY FINAL REPORT => Apr 22, 2024 08:38 TECH CODE: [id number] CULTURE RESULTS: NO GROWTH 24 HOURS Bacteriology Remark(s): THIS REPORT IS FINAL =--=--=--=--=--=--=--=--=--=--=--=- -=--=--=--=--=--=--=--=--=--=--=--= --=--=-- Performing Laboratory: Bacteriology Report Performed By: [facility] [CLIA# [id number]] [place] [address] [facility] Encounter Notes: All associated encounter notes This section contains the clinical notes associated to the Encounter. Date/Time Encounter Note(s) Provider Source Apr 24, 2024 08:48 AM NURSING INPATIENT NOTE: LOCAL TITLE: [facility] PRO[facility]ESS NOTE STANDARD TITLE: NURSING INPATIENT [...] SYRINGE: Amount administered IV: 1MLs Time administered: 0830 ADVERSE REACTIONS: No Action Taken: Not Applicable POST STUDY VITAL SIGNS: BP:125/71 HR: 48 O2 Sats: 97 RR: 18 Pain: 8 Yes Comment: chronic back pain, no new onset pain IV REMOVED: No Comment: inevette /alexi/ ERVIN RALPH REGISTERED NURSE, CFA Signed: 04/24/2024 08:51 ERVIN RALPH [facility]
--- OUTSIDE RECORDS SUMMARY | 2024-07-16 07:08 | XMS_ITS ---
[place] DAILY HOSPITALIZ[facility] DATA [facility] HCS Encounter Summary Created on: July 16, 2024 FLACA WEAVER : 1950 Sex: Male Author Name [facility] Address [address] [place] [address] Care Team Providers Care Supervisor Fleshing Name Role Phone JATINDER BENITEZ Primary Care [...] PART A Sep 29, 2016 PART A [id number] [phone] JUDY WEAVER PATIENT Selected Encounter This section [...] 02:30 PM AMBUL[place]ORY - NONE [place] [facility] May 02, 2024 10:00 AM AMBULATORY - SURGERY [place] [facility] May 04, 2024 09:00 AM AMBULATORY - NONE [place] [facility] May 07, 2024 08:45 AM AMBULATORY - [place]ICINE [place] [facility] May 08, 2024 02:00 PM AMBULATORY - NONE [place] [facility] May 09, 2024 07:30 AM AMBULATORY - SURGERY [place] [facility] May 11, 2024 01:00 PM AMBULATORY - NONE [place] [facility] May 11, 2024 03:30 PM AMBULATORY - NONE [place] [facility] May 15, 2024 08:30 AM [place]ORY [place]IC[place] [facility] May 16, 2024 07:45 AM [place]BULATORY - SURGERY [place] [facility] May 22, 2024 07:30 AM AMBULATORY - NONE [place] [facility] May 22, 2024 05:30 PM AMBULATORY - NONE [place] [facility] May 25, 2024 08:22 AM AMBULATORY - NONE [place] [facility] May 25, 2024 09:00 AM AMBULATORY - NONE [place] [facility] May 28, 2024 08:15 AM AMBULATORY - SURGERY [place] [facility] Jun 04, 2024 11:30 AM AMBULATORY - NONE [place] [facility] Jun 08, 2024 11:00 AM AMBULATORY - SURGERY [place] [facility] Jun 08, 2024 12:45 PM AMBULATORY - NONE [place] [facility] Jun 08, 2024 01:15 PM AM[place]ULATORY - [place]ICINE [place] [facility] Jun 08, 2024 01:45 PM AMBULATORY - SURGERY [place] [facility] Active, Pending, and Scheduled Orders This [...] SUSCEPTIBILITY ~Culture sample from JUAN drain output [facility] Apr 26, 2024 10:10 AM Laboratory - Microbiology Order GRAM STAIN WOUND OTHER WC ONCE ~For Test: GRAM STAIN ~JUAN drain culture/gram stain [facility] May 28, 2024 12:00 AM Laboratory - Blood Bank Order TYPE & SCREEN - LAB BLOOD SP [facility] Jun 08, 2024 09:57 AM Laboratory - Chemistry Order URINALYSIS URINE WC ONCE [facility] Lab Results: +/- 30 days of [...] Range Comment May 21, 2024 06:59 AM [facility] BASIC METABOLIC PANEL+MG Specimen Type: PLASMA No comment entered. Ordering Provider: GOLDIE BENITEZ Report Released Date/Time: May 15, 2024 08:34 AM Reporting Lab: [facility] [phone] Performing Lab: [facility] [address] CREATININE 0.9 mg/dL 0.7-1.2 UREA NITROGEN 18 mg/dL 8-26 GLUCOSE 126 mg/dL H 70-100 SODIUM 138 mmol/L 136-145 POTASSIUM 4.0 mmol/L 3.5-5.1 CHLORIDE 105 mmol/L 98-107 CO2 24 mmol/L 22-29 CALCIUM 9.8 mg/dL 8.4-10.2 MAGNESIUM 2.0 mg/dL 1.6-2.6 ANION GAP 9 mmol/L 5-15 .CREAT EGFR(CKD-EPI) >90 >60 May 04, 2024 08:36 AM [facility] BASIC METABOLIC PANEL+MG Specimen Type: PLASMA No comment entered. Ordering Provider: GOLDIE BENITEZ Report Released Date/Time: May 03, 2024 12:52 PM Reporting Lab: [facility] [phone] Performing Lab: [facility] [address] CREATININE 0.7 mg/dL 0.7-1.2 UREA NITROGEN 13 mg/dL 8-26 GLUCOSE 91 mg/dL 70-100 SODIUM 141 mmol/L 136-145 POTASSIUM 3.6 mmol/L 3.5-5.1 CHLORIDE 109 mmol/L H 98-107 CO2 25 mmol/L 22-29 CALCIUM 8.9 mg/dL 8.4-10.2 MAGNESIUM 2.0 mg/dL 1.6-2.6 ANION GAP 7 mmol/L 5-15 .CREAT EGFR(CKD-EPI) >90 >60 Apr 26, 2024 07:16 AM [facility] BASIC METABOLIC PANEL+MG Specimen Type: PLASMA No comment entered. Ordering Provider: JONO RANDOLPH Report Released Date/Time: Apr 25, 2024 02:50 PM Reporting Lab: [facility] [address] Performing Lab: [facility] [address] CREATININE 0.7 mg/dL 0.7-1.2 UREA NITROGEN 15 mg/dL 8-26 GLUCOSE 106 mg/dL H 70-100 SODIUM 139 mmol/L 136-145 POTASSIUM 3.4 mmol/L L 3.5-5.1 CHLORIDE 105 mmol/L 98-107 CO2 25 mmol/L 22-29 CALCIUM 8.5 mg/dL 8.4-10.2 MAGNESIUM 2.2 mg/dL 1.6-2.6 ANION GAP 9 mmol/L 5-15 .CREAT EGFR(CKD-EPI) >90 >60 Apr 25, 2024 05:10 PM [facility] BASIC METABOLIC PANEL+MG Specimen Type: PLASMA No comment entered. Ordering Provider: GIOVANNI ADLER Report Released Date/Time: Apr 25, 2024 05:04 PM Reporting Lab: [facility] [address] Performing Lab: [facility] [address] CREATININE 0.7 mg/dL 0.7-1.2 UREA NITROGEN 15 mg/dL 8-26 GLUCOSE 104 mg/dL H 70-100 SODIUM 139 mmol/L 136-145 POTASSIUM 3.2 mmol/L L 3.5-5.1 CHLORIDE 103 mmol/L 98-107 CO2 28 mmol/L 22-29 CALCIUM 8.5 mg/dL 8.4-10.2 MAGNESIUM 2.2 mg/dL 1.6-2.6 ANION GAP 8 mmol/L 5-15 .CREAT EGFR(CKD-EPI) >90 >60 Apr 25, 2024 07:46 AM [facility] BASIC METABOLIC PANEL+MG Specimen Type: PLASMA No comment entered. Ordering Provider: GIOVANNI ADLER Report Released Date/Time: Apr 24, 2024 12:37 PM Reporting Lab: [facility] [address] Performing Lab: [facility] [address] CREATININE 0.7 mg/dL 0.7-1.2 UREA NITROGEN 14 mg/dL 8-26 GLUCOSE 127 mg/dL H 70-100 SODIUM 139 mmol/L 136-145 POTASSIUM 2.9 mmol/L L 3.5-5.1 CHLORIDE 101 mmol/L 98-107 CO2 29 mmol/L 22-29 CALCIUM 8.7 mg/dL 8.4-10.2 MAGNESIUM 2.3 mg/dL 1.6-2.6 ANION GAP 9 mmol/L 5-15 .CREAT EGFR(CKD-EPI) >90 >60 Apr 24, 2024 04:42 PM [facility] BASIC METABOLIC PANEL+MG Specimen Type: PLASMA No comment entered. Ordering Provider: GIOVANNI ADLER Report Released Date/Time: Apr 24, 2024 12:37 PM Reporting Lab: [facility] [address] Performing Lab: [facility] [address] CREATININE 0.7 mg/dL 0.7-1.2 UREA NITROGEN 16 mg/dL 8-26 GLUCOSE 97 mg/dL 70-100 SODIUM 138 mmol/L 136-145 POTASSIUM 2.7 mmol/L L 3.5-5.1 CHLORIDE 99 mmol/L 98-107 CO2 30 mmol/L H 22-29 CALCIUM 8.4 mg/dL 8.4-10.2 MAGNESIUM 2.1 mg/dL 1.6-2.6 ANION GAP 9 mmol/L 5-15 .CREAT EGFR(CKD-EPI) >90 >60 Apr 24, 2024 07:36 AM [facility] BASIC METABOLIC PANEL+MG Specimen Type: PLASMA Comment: Critical Value Reported To: Cait Zamorano RN 04-24-24@[address] [place] [address]. Critical value report confirmed. Ordering Provider: AARON VICTOR Report Released Date/Time: Apr 23, 2024 05:30 PM Reporting Lab: [facility] [address] Performing Lab: [facility] [address] CREATININE 0.7 mg/dL 0.7-1.2 UREA NITROGEN 16 mg/dL 8-26 GLUCOSE 105 mg/dL H 70-100 SODIUM 138 mmol/L 136-145 POTASSIUM 2.3 mmol/L LL 3.5-5.1 CHLORIDE 98 mmol/L 98-107 CO2 29 mmol/L 22-29 CALCIUM 8.3 mg/dL L 8.4-10.2 MAGNESIUM 2.2 mg/dL 1.6-2.6 ANION GAP 11 mmol/L 5-15 .CREAT EGFR(CKD-EPI) >90 >60 Apr 24, 2024 07:35 AM [facility] CBC & DIFF Specimen Type: BLOOD Comment: Automated Differential Performed Ordering Provider: AARON VICTOR Report Released Date/Time: Apr 23, 2024 05:30 PM Reporting Lab: [facility] [address] Performing Lab: [facility] [address] WBC 10.49 10*3/uL 4.0-11.0 RBC 3.83 10*6/uL [...] 10*3/uL 0-0.1 Apr 23, 2024 01:20 PM [facility] LACTIC ACID Specimen Type: PLASMA No comment entered. Ordering Provider: AARON VICTOR Report Released Date/Time: Apr 23, 2024 12:05 PM Reporting Lab: [facility] [address] Performing Lab: [facility] [address] LACTIC ACID 1.5 mmol/L 0.5-2.2 Apr 23, 2024 01:20 PM [facility] PROTHROMBIN TIME/INR Specimen Type: PLASMA No comment entered. Ordering Provider: AARON VICTOR Report Released Date/Time: Apr 23, 2024 12:05 PM Reporting Lab: [facility] [address] Performing Lab: [facility] [address] .INR 1.2 H 0.8-1.1 .PT 14.5 s H 9.4-12.5 Apr 23, 2024 01:20 PM [facility] ACT PART THROMBO TIME Specimen Type: PLASMA No comment entered. Ordering Provider: AARON VICTOR Report Released Date/Time: Apr 23, 2024 12:05 PM Reporting Lab: [facility] [address] Performing Lab: [facility] [address] APTT 29.3 s 25.1-36.5 Apr 23, 2024 01:20 PM [facility] CBC & DIFF Specimen Type: BLOOD Comment: Automated Differential Performed Ordering Provider: AARON VICTOR Report Released Date/Time: Apr 23, 2024 12:05 PM Reporting Lab: [facility] [address] Performing Lab: [facility] [address] WBC 12.50 10*3/uL H 4.0-11.0 RBC 4.07 [...] 10*3/uL 0-0.1 Apr 23, 2024 01:20 PM [facility] COMPREHENSIVE METABOLIC PANEL+MG Specimen Type: PLASMA No comment entered. Ordering Provider: AARON VICTOR Report Released Date/Time: Apr 23, 2024 12:05 PM Reporting Lab: [facility] [address] Performing Lab: [facility] [address] CREATININE 0.7 mg/dL 0.7-1.2 UREA NITROGEN 19 [...] >90 >60 Apr 21, 2024 07:28 AM [facility] URINALYSIS Specimen Type: URINE No comment entered. Ordering Provider: ANANDA HUGGINS Report Released Date/Time: Apr 21, 2024 07:37 AM Reporting Lab: [facility] [address] Performing Lab: [facility] [address] URINE COLOR COLORLESS SPECIFIC GRAVITY 1.009 1.003-1.03 [...] Source Apr 24, 2024 10:48 PM 5 [facility] Apr 24, 2024 06:35 PM 5 [facility] Apr 24, 2024 04:00 PM 59 147/71 14 0 [facility] Apr 24, 2024 12:15 PM 0 [facility] Apr 24, 2024 10:12 AM 4 [facility] Social History: Smoking Status (Most current) [...] 06, 2023 11:30 AM VA-TOBACCO FORMER USER [facility] Tobacco Use History This section includes a history of the smoking, or tobacco-related health factors, that were collected on or before the date of the Encounter. The data comes from the [place] facility where the Encounter took place. Date/Time Smoking Status/Tobacco Use Comment Angelo mott May 06, 2023 11:30 AM VA-TOBACCO QUIT 15 YRS OR MORE [facility] Jun 04, 2022 09:00 AM VA-TOBACCO FORMER USER [facility] Jun 04, 2022 09:00 AM VA-TOBACCO QUIT 15 YRS OR MORE [facility] Jul 10, 2021 08:00 AM VA-TOBACCO FORMER USER [facility] Jul 10, 2021 08:00 AM VA-TOBACCO QUIT 5 TO < 15 YRS [facility] May 23, 2020 08:30 AM VA-TOBACCO FORMER USER [facility] May 23, 2020 08:30 AM VA-TOBACCO QUIT 5 TO < 15 YRS [facility] Mar 20, 2019 04:03 PM VA-TOBACCO FORMER USER [facility] Mar 20, 2019 04:03 PM VA-TOBACCO QUIT 5 TO < 15 YRS [facility] Mar 21, 2018 08:13 AM FORMER TOBACCO USER 7Y OR GREATE R [facility] Feb 24, 2017 09:24 AM FORMER TOBACCO USER 7Y OR GREATE R [facility] January 07, 2016 08:01 AM FORMER TOBACCO USE >1Y <7Y [facility] Feb 03, 2015 07:58 AM FORMER TOBACCO USE <1Y [facility] Feb 26, 2014 08:41 AM CURRENT TOBACCO USER [facility] May 13, 2011 01:45 PM CURRENT TOBACCO USER [facility] Advance Directives: All historical and current [...] PM IR FISTULOGRAM / S INOGRAM (P): MEGFLACADARCI LOBO [id number] -1950 M Exm Date: MAY 11, 2024@12:39 Req Phys: PALMIRA POWELL Loc: [facility] (Req' Img Loc: INTERVENTIONAL RADIOLOGY Service: [place] [address] (Case [id number] COMPLETE) IR INJECTION FOR SINOGRAM DIAGNOS(ANI Detailed) CPT:61130 Contrast Media : Non-ionic Iodinated Reason for Study: s/p drain placement for diverticular abscess- assess for drain (Case [id number] COMPLETE) IR FISTULOGRAM OR SINOGRAM (ANI Detailed) CPT:45473 Contrast Media : unspecified contrast media (Case [id number] COMPLETE) IR DRAINAGE CATHETER SUPPLY (ANI Detailed) CPT:C1729 Clinical History: Reedy IS NOT under investigation for COVID-19 or is COVID-19 negative s/p drain placement for diverticular abscess- assess for drain removal Contact number for responsible provider who can be reached for any questions or notifications of critical findings: [phone] Palmira Powell MD LAST CREATININE 0.7 (05/04/24) Report Status: Verified Date Reported: MAY 11, 2024 Date Verified: MAY 11, 2024 Us Marketing Director E-Sig:/ES/AMINTA ESCALONA MD Report: PROCEDURES Abdominal drain [...] Interpreting Staff: AMINTA ESCALONA MD, INTERVENTIONAL RADIOLOGIST (Us Marketing Director) /AMINTA VELAZCO [facility] May 11, 2024 11:[address] (AP) ABDOMEN/PE LVIS (P): FLACA WEAVER [id number] -1950 M Exm Date: MAY 11, 2024@11:40 Req Phys: PALMIRA POWELL Loc: [facility] (Req' Img Loc: CT IMAGING Service: [place] [address] (Case [id number] COMPLETE) CT (AP) ABDOMEN/PELVIS W CONTRAST(CT Detailed) CPT:38296 Contrast Media : Non-ionic Iodinated Reason for [...] any questions or notifications of critical findings: [phone] Palmira Powell MD LAST 3: Collection DT [...] PLASMA .CREAT EGFR(CKD-E >90 Ref: >=60 Allergies: ([facility]) TERAZOSIN (Mar 13, 2015) Report Status: Verified Date Reported: MAY 11, 2024 Date Verified: MAY 11, 2024 Us Marketing Director E-Sig:/ES/LISA PEDNLETON MD Report: CT abdomen and pelvis with [...] Primary Interpreting Staff: LISA PENDLETON MD, RADIOLOGIST (Us Marketing Director) /JRT LISA PENDLETON [facility] Apr 24, 2024 02:13 PM ABSCESS DRAIN PLAC EMENT PERITONEAL (P): FLACA WEAVER [id number] -1950 M Exm Date: APR 24, 2024@14:13 Req Phys: TAURUS WOOD Loc: 3K04-24-2024@16:07 Img Loc: INTERVENTIONAL RADIOLOGY Service: [facility] [address] (Case [id number] COMPLETE) IR PERITONEAL/RETROPERITONEAL PER(ANI Detailed) CPT:46417 Reason for Study: diverticular abscess Clinical History: Reedy IS NOT under investigation for COVID-19 or is COVID-19 negative 73yo M with hx of recurrent diverticulitis, transferred from 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 Palmira Powell MD LAST CREATININE 0.7 (04/23/24) Report Status: Verified Date Reported: APR 24, 2024 Date Verified: APR 24, 2024 Us Marketing Director E-Sig:/ES/SADIA DEE MD Report: PROCEDURES: Placement of [...] anesthesia. Using real-time CT fluoroscopy, a 5 Ethiopian Yueh catheter was advanced into the collection in the left lower quadrant. A wire was coiled in the collection. The tract into the collection was dilated to accommodate the 12 Ethiopian locking pigtail drainage catheter. The catheter was secured to the skin with monofilament suture and connected to JUAN bulb suction. Impression: Successful placement of a 12 Ethiopian locking pigtail drainage catheter in the left lower quadrant abscess. This catheter is connected to JUAN bulb suction with flushes, as ordered. I, SADIA DEE, have reviewed the images and report. Primary Interpreting Staff: SADIA DEE MD, RADIOLOGIST (Us Marketing Director) Primary Interpreting Resident: JEFFREY FLOWER MD, HEAD ESTHETICIAN /SADIA SNYDER [facility] Apr 24, 2024 02:[address] NEEDLE PLACEMEN T (P): FLACA WEAVER [id number] -1950 M Exm Date: APR 24, 2024@14:11 Req Phys: TAURUS WOOD Loc: 3K04-24-2024@16:07 Im Loc: CT IMAGING Service: PR[place] [address] (Case [id number] COMPLETE) CT SCAN FOR NEEDLE PLACEMENT (CT Detailed) CPT:92135 Reason for Study: diverticular abscess Clinical History: Report Status: Verified Date Reported: APR 24, 2024 Date Verified: APR 24, 2024 Us Marketing Director E-Sig:/ES/SADIA DEE MD Report: PROCEDURES: Placement of [...] anesthesia. Using real-time CT fluoroscopy, a 5 Ethiopian Yueh catheter was advanced into the collection in the left lower quadrant. A wire was coiled in the collection. The tract into the collection was dilated to accommodate the 12 Ethiopian locking pigtail drainage catheter. The catheter was secured to the skin with monofilament suture and connected to JUAN bulb suction. Impression: Successful placement of a 12 Ethiopian locking pigtail drainage catheter in the left lower quadrant abscess. This catheter is connected to JUAN bulb suction with flushes, as ordered. I, SADIA DEE, have reviewed the images and report. Primary Interpreting Staff: SADIA DEE MD, RADIOLOGIST (Us Marketing Director) Primary Interpreting Resident: JEFFREY FLOWER MD, HEAD ESTHETICIAN /SADIA SNYDER [facility] Apr 23, 2024 06:36 AM [facility] CT ABDOMEN/ PELVIS: FLACA WEAVER [id number] -1950 M Ex Date: APR 23, 2024@06:36 Req Phys: MCKAY VICTOR [facility] Loc: 3K04-24-2024@10:25 [facility] Loc: OUTSOURCE CT Service: Unknown (Case [id number] COMPLETE) NON [place] CT ABDOMEN/PELVIS (CT Detailed) CPT:78081 Reason for Study: OUTSIDE STUDY Clinical History: [...] Diagnostic Code: VERIFIED BY: / *ELECTRONICALLY FILED* [facility] Pathology Reports: +/- 30 days of [...] AM LR MICROBIOLOGY RE PORT: Reporting Lab: [facility] [CLIA# [id number]] [place] [address] Accession [UID]: [id number] [[id number]] Received: Apr 21, 2024@08:16 Collection sample: URINE Collection date: Apr 21, 2024 07:28 Provider: ANANDA HUGGINS Comment on specimen: RECEIVED IN STERILE CUP Test(s) ordered: CULTURE & SUSCEPTIBILITY...... completed: Apr 22, 2024 * BACTERIOLOGY FINAL REPORT => Apr 22, 2024 08:38 TECH CODE: [id number] CULTURE RESULTS: NO GROWTH 24 HOURS Bacteriology Remark(s): THIS REPORT IS FINAL =--=--=--=--=--=--=--=--=--=--=--=- -=--=--=--=--=--=--=--=--=--=--=--= --=--=-- Performing Laboratory: Bacteriology Report Performed By: [facility] [CLIA# [id number]] [place] [address] [facility]
--- OUTSIDE RECORDS SUMMARY | 2024-07-16 07:08 | XMS_ITS | Encounter Summary ---
Author Name [facility] [place] [facility] [place] Address [address] [place] [address] Care Team Providers Care Broadcast Checker Name Role Phone JATINDER BENITEZ Primary Care [...] PART A Sep 29, 2016 PART A [phone] JUDY WEAVER PATIENT Selected Encounter This section includes the [place] at [place] for [place]counter. Date/Time Encounter Type Encounter Description Reason Pro vider Source Apr 23, 2024 03:14 PM Inpatient Visit CLINICAL PHARMACY [facility] Encounter Template Text not used by [place] [...] 02:30 PM AM[place] [facility] May 02, 2024 10:00 AM [place] [facility] May 04, 2024 09:00 AM AM[place]ORY - [place]ONE [place] [facility] May 07, 2024 08:45 AM [place] [facility] May 08, 2024 02:00 PM AMBUL[place]ORY - NONE [place] [facility] May 09, 2024 07:30 AM [place] [facility] May 11, 2024 01:00 PM [place]ORY [place] [facility] May 11, 2024 03:30 PM [place] - [place]ONE [place] [facility] May 15, 2024 08:30 AM [place] [facility] May 16, 2024 07:45 AM [place] [facility] May 22, 2024 07:30 AM AM[place]ORY - [place]ONE [place] [facility] May 22, 2024 05:30 PM AM[place]ORY - [place]ONE [place] [facility] May 25, 2024 08:22 AM AM[place]ORY - [place]ONE [place] [facility] May 25, 2024 09:00 AM AM[place]ORY - [place]ONE [place] [facility] May 28, 2024 08:15 AM [place] [facility] Jun 04, 2024 11:30 AM AMBUL[place]ORY - NONE [place] [facility] Jun 08, 2024 11:00 AM [place] [facility] Jun 08, 2024 12:45 PM AM[place]UL[place]ORY - [place]ONE [place] [facility] Jun 08, 2024 01:15 PM [place] [facility] Jun 08, 2024 01:45 PM AMBUL[place]ORY - [place]GERY [place] [facility] Active, Pending, and Scheduled [...] from JUAN drain output [facility] May 28, 2024 12:00 AM Laboratory - Blood Bank Order TYPE & SCREEN - LAB BLOOD SP [facility] Lab Results: +/- 30 [...] Range Comment May 21, 2024 06:59 AM [facility] BASIC METABOLIC PANEL+MG Specimen Type: PLASMA No comment entered. Ordering Provider: GOLDIE BENITEZ Report Released Date/Time: May 15, 2024 08:34 AM Reporting Lab: [facility] [address] Performing Lab: [facility] [address] CREATININE 0.9 mg/dL 0.7-1.2 UREA NITROGEN 18 mg/dL 8-26 GLUCOSE 126 mg/dL H 70-100 SODIUM 138 mmol/L 136-145 POTASSIUM 4.0 mmol/L 3.5-5.1 CHLORIDE 105 mmol/L 98-107 CO2 24 mmol/L 22-29 CALCIUM 9.8 mg/dL 8.4-10.2 MAGNESIUM 2.0 mg/dL 1.6-2.6 ANION GAP 9 mmol/L 5-15 .CREAT EGFR(CKD-EPI) >90 >60 May 04, 2024 08:36 AM [facility] BASIC METABOLIC PANEL+MG Specimen Type: PLASMA No comment entered. Ordering Provider: GOLDIE BENITEZ Report Released Date/Time: May 03, 2024 12:52 PM Reporting Lab: [facility] [address] Performing Lab: [facility] [address] CREATININE 0.7 mg/dL 0.7-1.2 UREA NITROGEN 13 mg/dL 8-26 GLUCOSE 91 mg/dL 70-100 SODIUM 141 mmol/L 136-145 POTASSIUM 3.6 mmol/L 3.5-5.1 CHLORIDE 109 mmol/L H 98-107 CO2 25 mmol/L 22-29 CALCIUM 8.9 mg/dL 8.4-10.2 MAGNESIUM 2.0 mg/dL 1.6-2.6 ANION GAP 7 mmol/L 5-15 .CREAT EGFR(CKD-EPI) >90 >60 Apr 26, 2024 07:16 AM [facility] BASIC METABOLIC PANEL+MG Specimen Type: PLASMA No comment entered. Ordering Provider: JONO RANDOLPH Report Released Date/Time: Apr 25, 2024 02:50 PM Reporting Lab: [facility] [address] Performing Lab: [facility] [address] CREATININE 0.7 mg/dL 0.7-1.2 UREA NITROGEN 15 [...] Apr 25, 2024 05:04 PM Reporting Lab: [facility] [address] Performing Lab: [facility] [address] CREATININE 0.7 mg/dL 0.7-1.2 UREA NITROGEN 15 [...] Apr 24, 2024 12:37 PM Reporting Lab: [facility] [address] Performing Lab: [facility] [address] CREATININE 0.7 mg/dL 0.7-1.2 UREA NITROGEN 14 [...] Apr 24, 2024 12:37 PM Reporting Lab: [facility] [address] Performing Lab: [facility] [address] CREATININE 0.7 mg/dL 0.7-1.2 UREA NITROGEN 16 [...] Value Reported To: Cait Zamorano RN 8-27-24@0832 [facility]. Critical value report confirmed. Ordering Provider: AARON VICTOR Report Released Date/Time: Apr 23, 2024 05:30 PM Reporting Lab: [facility] [address] Performing Lab: [facility] [address] CREATININE 0.7 mg/dL 0.7-1.2 UREA NITROGEN 16 [...] Apr 23, 2024 05:30 PM Reporting Lab: [facility] [address] Performing Lab: [facility] [address] WBC 10.49 10*3/uL 4.0-11.0 RBC 3.83 10*6/uL [...] Apr 23, 2024 12:05 PM Reporting Lab: [facility] [address] Performing Lab: [facility] [address] .INR 1.2 H 0.8-1.1 .PT 14.5 s H 9.4-12.5 Apr 23, 2024 01:20 PM [facility] LACTIC ACID Specimen Type: PLASMA No comment entered. Ordering Provider: AARON VICTOR Report Released Date/Time: Apr 23, 2024 12:05 PM Reporting Lab: [facility] [address] Performing Lab: [facility] [address] LACTIC ACID 1.5 mmol/L 0.5-2.2 Apr 23, 2024 01:20 PM [facility] ACT PART THROMBO TIME Specimen Type: PLASMA No comment entered. Ordering Provider: AARON VICTOR Report Released Date/Time: Apr 23, 2024 12:05 PM Reporting Lab: [facility] [address] Performing Lab: [facility] [address] APTT 29.3 s 25.1-36.5 Apr 23, 2024 01:20 PM [facility] COMPREHENSIVE METABOLIC PANEL+MG Specimen Type: PLASMA No comment entered. Ordering Provider: AARON VICTOR Report Released Date/Time: Apr 23, 2024 12:05 PM Reporting Lab: [facility] [address] Performing Lab: [facility] [address] CREATININE 0.7 mg/dL 0.7-1.2 UREA NITROGEN 19 [...] Apr 23, 2024 12:05 PM Reporting Lab: [facility] [address] Performing Lab: [facility] [address] WBC 12.50 10*3/uL H 4.0-11.0 RBC 4.07 [...] Apr 21, 2024 07:37 AM Reporting Lab: [facility] [address] Performing Lab: [facility] [address] [facility] [address] URINE COLOR COLORLESS SPECIFIC GRAVITY 1.009 1.003-1.03 [...] 23, 2024 01:59 PM 211.1 [facility] Social History: Smoking Status (Most current) [...] Mar 23, 2016 CLINICAL [place]ING [place] [facility] Radiology Reports: +/- [...] FISTULOGRAM / S INOGRAM (P): FLACA WEAVER [id number] -1950 M Exm Date: MAY 11, 2024@12:39 Req Phys: PALMIRA POWELL Loc: [facility] C/R FOLLOW-UP CLINIC (Req' Img Loc: INTERVENTIONAL RADIOLOGY Service: [place] [address] (Case [id number] COMPLETE) IR INJECTION FOR SINOGRAM DIAGNOS(ANI Detailed) CPT:38244 Contrast Media : Non-ionic Iodinated Reason for Study: s/p drain placement for diverticular abscess- assess for drain (Case [id number] COMPLETE) IR FISTULOGRAM OR SINOGRAM (ANI Detailed) CPT:71206 Contrast Media : unspecified contrast media (Case [id number] COMPLETE) IR DRAINAGE CATHETER SUPPLY (ANI Detailed) CPT:C1729 Clinical History: IS NOT under investigation for COVID-19 or is COVID-19 negative s/p drain placement for diverticular abscess- assess for drain removal Contact number for responsible provider who can be reached for any questions or notifications of critical findings: [phone] Palmira Powell MD LAST CREATININE 0.7 (05/04/24) Report Status: Verified Date Reported: MAY 11, 2024 Date Verified: MAY 11, 2024 Bricklayer'S Assistant E-Sig:/ES/AMINTA ESCALONA MD Report: PROCEDURES Abdominal drain check CLINICAL HISTORY: Diverticular abscess COMPARISONS: 04/23/2024, 04/24/2024, 05/11/2024 STAFF RADIOLOGIST: Amnita Escalona MD Dose (Air Kerma): 9.2 mGy [...] Interpreting Staff: AMINTA ESCALONA MD, INTERVENTIONAL RADIOLOGIST (Bricklayer'S Assistant) /AMINTA VELAZCO [facility] May 11, 2024 11:[address] (AP) ABDOMEN/PE LVIS (P): FLACA WEAVER [id number] -1950 M Exm Date: MAY 11, 2024@11:40 Req Phys: PALMIRA POWELL Loc: [facility] C/R FOLLOW-UP CLINIC (Req' Img Loc: CT IMAGING Service: [place] [address] (Case [id number] COMPLETE) CT (AP) ABDOMEN/PELVIS W CONTRAST(CT Detailed) CPT:12846 Contrast Media : Non-ionic Iodinated Reason for [...] any questions or notifications of critical findings: [phone] Palmira Powell MD LAST 3: Collection DT [...] PLASMA .CREAT EGFR(CKD-E >90 Ref: >=60 Allergies: (Imbler only) TERAZOSIN (Mar 13, 2015) Report Status: Verified Date Reported: MAY 11, 2024 Date Verified: MAY 11, 2024 Bricklayer'S Assistant E-Sig:/ES/LISA PENDLETON MD Report: CT abdomen and [...] Primary Interpreting Staff: LISA PENDLETON MD, RADIOLOGIST (Bricklayer'S Assistant) /JRT LISA PENDLETON [facility] Apr 24, 2024 02:13 PM ABSCESS DRAIN PLAC EMENT PERITONEAL (P): FLACA WEAVER [id number] -1950 M Exm Date: APR 24, 2024@14:13 Req Phys: TAURUS WOOD Loc: [facility]/04-24-2024@16:07 Img Loc: INTERVENTIONAL RADIOLOGY Service: PRIMARY [place] [address] (Case [id number] COMPLETE) IR PERITONEAL/RETROPERITONEAL PER(ANI Detailed) CPT:91801 Reason for Study: diverticular abscess Clinical History: [place] IS NOT under investigation for COVID-19 or is COVID-19 negative 73yo M with hx of recurrent diverticulitis, transferred from [facility] 04/[address] 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 Palmira Powell MD LAST CREATININE 0.7 (04/23/24) Report Status: Verified Date Reported: APR 24, 2024 Date Verified: APR 24, 2024 Bricklayer'S Assistant E-Sig:/ES/SADIA DEE MD Report: PROCEDURES: Placement [...] Primary Interpreting Staff: SADIA DEE MD, RADIOLOGIST (Bricklayer'S Assistant) Primary Interpreting Resident: JEFFREY FLOWER MD, [facility] /SADIA SNYDER [facility] Apr 24, 2024 02:[address] NEEDLE PLACEMEN T (P): FLACA WEAVER [id number] -1950 M Exm Date: APR 24, 2024@14:11 Req Phys: ISRAELGRACIELAVITA HILLMAN Amanda Loc: 3[facility]/04-24-2024@16:07 Img Loc: CT IMAGING Service: PRIMARY [place]ARE [place] [address] (Case [id number] COMPLETE) CT SCAN FOR NEEDLE PLACEMENT (CT Detailed) CPT:17885 Reason for Study: diverticular abscess Clinical History: Report Status: Verified Date Reported: APR 24, 2024 Date Verified: APR 24, 2024 Bricklayer'S Assistant E-Sig:/ES/SADIA DEE MD Report: PROCEDURES: Placement [...] Primary Interpreting Staff: SADIA DEE MD, RADIOLOGIST (Bricklayer'S Assistant) Primary Interpreting Resident: JEFFREY FLOWER MD, [facility] /SADIA SNYDER [facility] Apr 23, 2024 06:36 AM [facility] CT ABDOMEN/ PELVIS: FLACA WEAVER [id number] -1950 M Exm Date: APR 23, 2024@06:36 Req Phys: MCKAY VICTOR [facility] Loc: 04-24-2024@10:25 Img Loc: OUTSOURCE CT Service: Unknown (Case [id number] COMPLETE) NON [place] CT ABDOMEN/PELVIS (CT Detailed) CPT:67741 Reason for Study: OUTSIDE STUDY Clinical History: [...] PORT: Reporting Lab: [facility] [CLIA# [id number]] [place] [address] Accession [UID]: [id number] [[id number]] Received: Apr 21, 2024@08:16 Collection sample: URINE Collection date: Apr 21, 2024 07:28 Provider: ANANDA HUGGINS Comment on specimen: RECEIVED IN STERILE CUP Test(s) ordered: CULTURE & SUSCEPTIBILITY...... completed: Apr 22, 2024 * BACTERIOLOGY FINAL REPORT => Apr 22, 2024 08:38 TECH CODE: [id number] CULTURE RESULTS: NO GROWTH 24 HOURS Bacteriology Remark(s): THIS REPORT IS FINAL =--=--=--=--=--=--=--=--=--=--=--=- -=--=--=--=--=--=--=--=--=--=--=--= --=--=-- Performing Laboratory: Bacteriology Report Performed By: [facility] [CLIA# [id number]] [place] [address] [facility] Encounter Notes: All associated encounter [...] a fairly good historian. Last doses taken 04/22 AM. Allergies: FACILITY ALLERGY/ADR -------- No Remote Allergy/ADR Data available for this patient [facility] TERAZOSIN (nausea/vomiting) Tobacco use within the last 30 days No 04/23/2024 14:05 FLACA WEAVER [id number] Source of Info: [facility] Drug Last Refills Qty Filled [...] MCKAY VICTOR M.D. Staff Physician KARINA CHANCE I [facility]
--- OUTSIDE RECORDS SUMMARY | 2024-07-16 07:08 | XMS_ITS | Encounter Summary ---
Author Name [facility] [place] [facility] [place] Address [address] [place] [address] Care Team Providers Care Barback Name Role Phone JATINDER BENITEZ Primary Care [...] PART A Sep 29, 2016 PART A [id number] [phone] JUDY WEAVER PATIENT Selected Encounter This section includes the information on record at [place] for the Encounter. Date/Time Encounter Type Encounter Description Reason Provider Source Apr 23, 2024 05:21 PM IP/OBS CNSLTJ NEW/EST MOD 60 CARDIOLOGY ICD-10-CM I44.1 Atrioventricular block, second degree AMIE COOLEY IHAlex Encounter Template Text not used by [place] Assessments - Encounter Diagnoses This section includes the primary and secondary diagnoses documented for the Encounter. Date/Time Primary/Secondary Diagnosis Diagnosis Name Provider Source Apr 23, 2024 05:24 PM PRIMARY Atrioventricular block, second degree AMIE COOLEY [facility] Plan of Treatment: Future Appointments (+ 6 months) and Future Tests (+/- 45 days) The Plan of Treatment section includes future care activities for the [facility] This section includes future appointments and future orders which are active, pending or scheduled. Future Appointments This section includes appointments that were scheduled to occur 6 months from the date of the Encounter, up to a maximum of 20 appointments. The data comes from all [facility] facilities. Appointment Date/Time Appointment Type Appointme nt [...] [facility] May 11, 2024 01:00 PM AM[place] [place]ONE [place] [facility] May 11, 2024 03:30 PM AM[place]ORY - [place] [facility] May 15, 2024 08:30 AM AMBULATORY [place]ICINE [place] [facility] May 16, 2024 07:45 AM AMBULATORY - [place] [facility] May 22, 2024 07:30 AM AMBULATORY - [place]ONE [place] [facility] May 22, 2024 05:30 PM AMBULATORY - [place]ONE [place] [facility] May 25, 2024 08:22 AM AMBULATORY - [place]ONE [place] [facility] May 25, 2024 09:00 AM AMBULATORY - [place]ONE [place] [facility] May 28, 2024 08:15 AM AMBULATORY - [place]GERY [place] [facility] Jun 04, 2024 11:30 AM AMBULATORY - [place]ONE [place] [facility] Jun 08, 2024 11:00 AM AMBULATORY - SURGERY [place] [facility] Jun 08, 2024 12:45 PM AMBULATORY - [place]ONE [place] [facility] Jun 08, 2024 01:15 PM AM[place]UL[place]ORY - [place]IC[place] [facility] Jun 08, 2024 01:45 PM AMBULATORY - SURGERY [place] [facility] Active, Pending, and Scheduled Orders This section includes a listing of several types of active, pending, and scheduled orders, including clinic medications orders, diagnostic test orders, procedure orders and consult orders; where the start date of the order is 45 days before the date of the Encounter or 45 days after the date of theEncounter. The data comes from all [place] treatment facilities. Test Date/Time Test Type Test Details Facility Name Apr 26, 2024 10:10 AM Laboratory - Microbiology Order GRAM STAIN WOUND OTHER WC ONCE ~For Test: GRAM STAIN ~JUAN drain culture/gram stain [facility] Apr 26, 2024 10:10 AM Laboratory - Microbiology Order CULTURE & SUSCEPTIBILITY WOUND OTHER WC ONCE ~For Test: CULTURE & SUSCEPTIBILITY ~Culture sample from JUAN drain output [facility] May 28, 2024 12:00 AM Laboratory - Blood Bank Order TYPE & SCREEN - LAB BLOOD SP [facility] Lab Results: +/- 30 days of the encounter This section includes the Chemistry and Hematology Lab Results on record with [place] for the patient. Radiology Reports and Pathology Reports are provided separately, in subsequent sections. Lab Results This section contains the Chemistry/Hematology Results that were resulted 30 days before or 30 daysafter the date of the Encounter. Date/Time Source Result Type Result - Unit Interpretation Reference Range Comment May 21, 2024 06:59 AM [facility] BASIC METABOLIC PANEL+MG Specimen Type: PLASMA No comment entered. Ordering Provider: GOLDIE BENITEZ Report Released Date/Time: May 15, 2024 08:34 AM Reporting Lab: [facility] [address] Performing Lab: [facility] [address] CREATININE 0.9 mg/dL 0.7-1.2 UREA NITROGEN 18 mg/dL 8-26 GLUCOSE 126 mg/dL H 70-100 SODIUM 138 mmol/L 136-145 POTASSIUM 4.0 mmol/L 3.5-5.1 CHLORIDE 105 mmol/L 98-107 CO2 24 mmol/L 22-29 CALCIUM 9.8 mg/dL 8.4-10.2 MAGNESIUM 2.0 mg/dL 1.6-2.6 ANION GAP 9 mmol/L 5-15 .CREAT EGFR(CKD-EPI) >90 >60 May 04, 2024 08:36 AM [facility] BASIC METABOLIC PANEL+MG Specimen Type: PLASMA No comment entered. Ordering Provider: GOLDIE BENITEZ Report Released Date/Time: May 03, 2024 12:52 PM Reporting Lab: [facility] [address] Performing Lab: [facility] [address] CREATININE 0.7 mg/dL 0.7-1.2 UREA NITROGEN 13 mg/dL 8-26 GLUCOSE 91 mg/dL 70-100 SODIUM 141 mmol/L 136-145 POTASSIUM 3.6 mmol/L 3.5-5.1 CHLORIDE 109 mmol/L H 98-107 CO2 25 mmol/L 22-29 CALCIUM 8.9 mg/dL 8.4-10.2 MAGNESIUM 2.0 mg/dL 1.6-2.6 ANION GAP 7 mmol/L 5-15 .CREAT EGFR(CKD-EPI) >90 >60 Apr 26, 2024 07:16 AM [facility] BASIC METABOLIC PANEL+MG Specimen Type: PLASMA No comment entered. Ordering Provider: JONO RANDOLPH Report Released Date/Time: Apr 25, 2024 02:50 PM Reporting Lab: [facility] [address] Performing Lab: [facility] [address] CREATININE 0.7 mg/dL 0.7-1.2 UREA NITROGEN 15 mg/dL 8-26 GLUCOSE 106 mg/dL H 70-100 SODIUM 139 mmol/L 136-145 POTASSIUM 3.4 mmol/L L 3.5-5.1 CHLORIDE 105 mmol/L 98-107 CO2 25 mmol/L 22-29 CALCIUM 8.5 mg/dL 8.4-10.2 MAGNESIUM 2.2 mg/dL 1.6-2.6 ANION GAP 9 mmol/L 5-15 .CREAT EGFR(CKD-EPI) >90 >60 Apr 25, 2024 05:10 PM [facility] BASIC METABOLIC PANEL+MG Specimen Type: PLASMA No comment entered. Ordering Provider: GIOVANNI ADLER Report Released Date/Time: Apr 25, 2024 05:04 PM Reporting Lab: [facility] [address] Performing Lab: [facility] [address] CREATININE 0.7 mg/dL 0.7-1.2 UREA NITROGEN 15 mg/dL 8-26 GLUCOSE 104 mg/dL H 70-100 SODIUM 139 mmol/L 136-145 POTASSIUM 3.2 mmol/L L 3.5-5.1 CHLORIDE 103 mmol/L 98-107 CO2 28 mmol/L 22-29 CALCIUM 8.5 mg/dL 8.4-10.2 MAGNESIUM 2.2 mg/dL 1.6-2.6 ANION GAP 8 mmol/L 5-15 .CREAT EGFR(CKD-EPI) >90 >60 Apr 25, 2024 07:46 AM [facility] BASIC METABOLIC PANEL+MG Specimen Type: PLASMA No comment entered. Ordering Provider: GIOVANNI ADLER Report Released Date/Time: Apr 24, 2024 12:37 PM Reporting Lab: [facility] [address] Performing Lab: [facility] [address] CREATININE 0.7 mg/dL 0.7-1.2 UREA NITROGEN 14 mg/dL 8-26 GLUCOSE 127 mg/dL H 70-100 SODIUM 139 mmol/L 136-145 POTASSIUM 2.9 mmol/L L 3.5-5.1 CHLORIDE 101 mmol/L 98-107 CO2 29 mmol/L 22-29 CALCIUM 8.7 mg/dL 8.4-10.2 MAGNESIUM 2.3 mg/dL 1.6-2.6 ANION GAP 9 mmol/L 5-15 .CREAT EGFR(CKD-EPI) >90 >60 Apr 24, 2024 04:42 PM [facility] BASIC METABOLIC PANEL+MG Specimen Type: PLASMA No comment entered. Ordering Provider: GIOVANNI ADLER Report Released Date/Time: Apr 24, 2024 12:37 PM Reporting Lab: [facility] [address] Performing Lab: [facility] [address] CREATININE 0.7 mg/dL 0.7-1.2 UREA NITROGEN 16 mg/dL 8-26 GLUCOSE 97 mg/dL 70-100 SODIUM 138 mmol/L 136-145 POTASSIUM 2.7 mmol/L L 3.5-5.1 CHLORIDE 99 mmol/L 98-107 CO2 30 mmol/L H 22-29 CALCIUM 8.4 mg/dL 8.4-10.2 MAGNESIUM 2.1 mg/dL 1.6-2.6 ANION GAP 9 mmol/L 5-15 .CREAT EGFR(CKD-EPI) >90 >60 Apr 24, 2024 07:36 AM [facility] BASIC METABOLIC PANEL+MG Specimen Type: PLASMA Comment: Critical Value Reported To: Cait Zamorano RN 04-24-24@[address] [place] [address]. Critical value report confirmed. Ordering Provider: AARON VICTOR Report Released Date/Time: Apr 23, 2024 05:30 PM Reporting Lab: [facility] [address] Performing Lab: [facility] [address] CREATININE 0.7 mg/dL 0.7-1.2 UREA NITROGEN 16 mg/dL 8-26 GLUCOSE 105 mg/dL H 70-100 SODIUM 138 mmol/L 136-145 POTASSIUM 2.3 mmol/L LL 3.5-5.1 CHLORIDE 98 mmol/L 98-107 CO2 29 mmol/L 22-29 CALCIUM 8.3 mg/dL L 8.4-10.2 MAGNESIUM 2.2 mg/dL 1.6-2.6 ANION GAP 11 mmol/L 5-15 .CREAT EGFR(CKD-EPI) >90 >60 Apr 24, 2024 07:35 AM [facility] CBC & DIFF Specimen Type: BLOOD Comment: Automated Differential Performed Ordering Provider: AARON VICTOR Report Released Date/Time: Apr 23, 2024 05:30 PM Reporting Lab: [facility] [address] Performing Lab: [facility] [address] WBC 10.49 10*3/uL 4.0-11.0 RBC 3.83 10*6/uL [...] 10*3/uL 0-0.1 Apr 23, 2024 01:20 PM [facility] LACTIC ACID Specimen Type: PLASMA No comment entered. Ordering Provider: AARON VICTOR Report Released Date/Time: Apr 23, 2024 12:05 PM Reporting Lab: [facility] [address] Performing Lab: [facility] [address] LACTIC ACID 1.5 mmol/L 0.5-2.2 Apr 23, 2024 01:20 PM [facility] ACT PART THROMBO TIME Specimen Type: PLASMA No comment entered. Ordering Provider: AARON VICTOR Report Released Date/Time: Apr 23, 2024 12:05 PM Reporting Lab: [facility] [address] Performing Lab: [facility] [address] APTT 29.3 s 25.1-36.5 Apr 23, 2024 01:20 PM [facility] PROTHROMBIN TIME/INR Specimen Type: PLASMA No comment entered. Ordering Provider: AARON VICTOR Report Released Date/Time: Apr 23, 2024 12:05 PM Reporting Lab: [facility] [address] Performing Lab: [facility] [address] .INR 1.2 H 0.8-1.1 .PT 14.5 s H 9.4-12.5 Apr 23, 2024 01:20 PM [facility] COMPREHENSIVE METABOLIC PANEL+MG Specimen Type: PLASMA No comment entered. Ordering Provider: AARON VICTOR Report Released Date/Time: Apr 23, 2024 12:05 PM Reporting Lab: [facility] [address] Performing Lab: [facility] [address] CREATININE 0.7 mg/dL 0.7-1.2 UREA NITROGEN 19 [...] >90 >60 Apr 23, 2024 01:20 PM [facility] CBC & DIFF Specimen Type: BLOOD Comment: Automated Differential Performed Ordering Provider: AARON VICTOR Report Released Date/Time: Apr 23, 2024 12:05 PM Reporting Lab: [facility] [address] Performing Lab: [facility] [address] WBC 12.50 10*3/uL H 4.0-11.0 RBC 4.07 [...] 10*3/uL 0-0.1 Apr 21, 2024 07:28 AM [facility] URINALYSIS Specimen Type: URINE No comment entered. Ordering Provider: ANANDA HUGGINS Report Released Date/Time: Apr 21, 2024 07:37 AM Reporting Lab: [facility] [address] Performing Lab: [facility] [address] URINE COLOR COLORLESS SPECIFIC GRAVITY 1.009 1.003-1.03 [...] 23, 2024 01:59 PM 211.1 30 [place] [facility] Social History: Smoking Status (Most [...] AM VA-TOBACCO QUIT 15 YRS OR MORE [facility] Tobacco Use History This section includes a history of the smoking, or tobacco-related health factors, that were collected on or before the date of the Encounter. The data comes from the [place] facility where the Encounter took place. Date/Time Smoking Status/Tobacco Use Comment F tiera May 06, 2023 11:30 AM VA-TOBACCO QUIT 15 YRS OR MORE [facility] Jun 04, 2022 09:00 AM VA-TOBACCO FORMER USER [facility] Jun 04, 2022 09:00 AM VA-TOBACCO QUIT 15 YRS OR MORE [facility] Jul 10, 2021 08:00 AM VA-TOBACCO FORMER USER [facility] Jul 10, 2021 08:00 AM VA-TOBACCO QUIT 5 TO < 15 YRS [facility] May 23, 2020 08:30 AM VA-TOBACCO FORMER USER [facility] May 23, 2020 08:30 AM VA-TOBACCO QUIT 5 TO < 15 YRS [facility] Mar 20, 2019 04:03 PM VA-TOBACCO FORMER USER [facility] Mar 20, 2019 04:03 PM VA-TOBACCO QUIT 5 TO < 15 YRS [facility] Mar 21, 2018 08:13 AM FORMER TOBACCO USER 7Y OR GREATE R [facility] Feb 24, 2017 09:24 AM FORMER TOBACCO USER 7Y OR GREATE R [facility] January 07, 2016 08:01 AM FORMER TOBACCO USE >1Y <7Y [facility] Feb 03, 2015 07:58 AM FORMER TOBACCO USE <1Y [facility] Feb 26, 2014 08:41 AM CURRENT TOBACCO USER [facility] May 13, 2011 01:45 PM CURRENT TOBACCO USER [facility] Advance Directives: All [...] WARNING TIM [facility] [...] PM IR FISTULOGRAM / S INOGRAM (P): MEGFLACA YAMIL [id number] -1950 M Exm Date: MAY 11, 2024@12:39 Req Phys: PALMIRA POWELL Loc: [facility] C/R FOLLOW-UP CLINIC (Req' Img Loc: INTERVENTIONAL RADIOLOGY Service: [place] [address] (Case [id number] COMPLETE) IR INJECTION FOR SINOGRAM DIAGNOS(ANI Detailed) CPT:06598 Contrast Media : Non-ionic Iodinated Reason for Study: s/p drain placement for diverticular abscess- assess for drain (Case [id number] COMPLETE) IR FISTULOGRAM OR SINOGRAM (ANI Detailed) CPT:46533 Contrast Media : unspecified contrast media (Case [id number] COMPLETE) IR DRAINAGE CATHETER SUPPLY (ANI Detailed) CPT:C1729 Clinical History: IS NOT under investigation for COVID-19 or is COVID-19 negative s/p drain placement for diverticular abscess- assess for drain removal Contact number for responsible provider who can be reached for any questions or notifications of critical findings: [phone] Palmira Powell MD LAST CREATININE 0.7 (05/04/24) Report Status: Verified Date Reported: MAY 11, 2024 Date Verified: MAY 11, 2024 Net Software Architect E-Sig:/ES/AMINTA ESCALONA MD Report: PROCEDURES Abdominal drain [...] Interpreting Staff: AMINTA ESCALONA MD, INTERVENTIONAL RADIOLOGIST (Net Software Architect) /AMINTA VELAZCO [facility] May 11, 2024 11:[address] (AP) ABDOMEN/PE LVIS (P): FLACA WEAVER [id number] -1950 M Exm Date: MAY 11, 2024@11:40 Req Phys: PALMIRA POWELL Loc: [facility] C/R FOLLOW-UP CLINIC (Req' Img Loc: CT IMAGING Service: [place] [address] (Case [id number] COMPLETE) CT (AP) ABDOMEN/PELVIS W CONTRAST(CT Detailed) CPT:37486 Contrast Media : Non-ionic Iodinated Reason for [...] any questions or notifications of critical findings: [phone] Palmira Powell MD LAST 3: Collection DT [...] PLASMA .CREAT EGFR(CKD-E >90 Ref: >=60 Allergies: ([place] only) TERAZOSIN (Mar 13, 2015) Report Status: Verified Date Reported: MAY 11, 2024 Date Verified: MAY 11, 2024 Net Software Architect E-Sig:/ES/LISA PENDLETON MD Report: CT abdomen and [...] Primary Interpreting Staff: LISA PENDLETON MD, RADIOLOGIST (Net Software Architect) /JRT LISA PENDLETON [facility] Apr 24, 2024 02:13 PM ABSCESS DRAIN PLAC EMENT PERITONEAL (P): FLACA WEAVER [id number] -1950 M Exm Date: APR 24, 2024@14:13 Req Phys: ISRAELTAURUS KADY Pat Loc: 3KS04-24-2024@16:07 Img Loc: INTERVENTIONAL RADIOLOGY Service: [facility] [address] (Case [id number] COMPLETE) IR PERITONEAL/RETROPERITONEAL PER(ANI Detailed) CPT:84924 Reason for Study: diverticular abscess Clinical History: [place] IS NOT under investigation for COVID-19 or is COVID-19 negative 73yo M with hx of recurrent diverticulitis, transferred from [facility] 04/[address] 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 Palmira Powell MD LAST CREATININE 0.7 (04/23/24) Report Status: Verified Date Reported: APR 24, 2024 Date Verified: APR 24, 2024 Net Software Architect E-Sig:/ES/SADIA DEE MD Report: PROCEDURES: Placement of [...] anesthesia. Using real-time CT fluoroscopy, a 5 Marshallese Yueh catheter was advanced into the collection in the left lower quadrant. A wire was coiled in the collection. The tract into the collection was dilated to accommodate the 12 Marshallese locking pigtail drainage catheter. The catheter was secured to the skin with monofilament suture and connected to JUAN bulb suction. Impression: Successful placement of a 12 Marshallese locking pigtail drainage catheter in the left lower quadrant abscess. This catheter is connected to JUAN bulb suction with flushes, as ordered. I, SADIA DEE, have reviewed the images and report. Primary Interpreting Staff: SADIA DEE MD, RADIOLOGIST (Net Software Architect) Primary Interpreting Resident: JEFFREY FLOWER MD, GLUE MIXER /SADIA SNYDER [facility] Apr 24, 2024 02:[address] NEEDLE PLACEMEN T (P): FLACA WEAVER [id number] -1950 M Exm Date: APR 24, 2024@14:11 Req Phys: TAURUS WOOD Loc: 3K04-24-2024@16:07 Im Loc: CT IMAGING Service: [place] [address] (Case [id number] COMPLETE) CT SCAN FOR NEEDLE PLACEMENT (CT Detailed) CPT:79903 Reason for Study: diverticular abscess Clinical History: Report Status: Verified Date Reported: APR 24, 2024 Date Verified: APR 24, 2024 Net Software Architect E-Sig:/ES/SADIA DEE MD Report: PROCEDURES: Placement of [...] anesthesia. Using real-time CT fluoroscopy, a 5 Marshallese Yueh catheter was advanced into the collection in the left lower quadrant. A wire was coiled in the collection. The tract into the collection was dilated to accommodate the 12 Marshallese locking pigtail drainage catheter. The catheter was secured to the skin with monofilament suture and connected to JUAN bulb suction. Impression: Successful placement of a 12 Marshallese locking pigtail drainage catheter in the left lower quadrant abscess. This catheter is connected to JUAN bulb suction with flushes, as ordered. I, SADIA DEE, have reviewed the images and report. Primary Interpreting Staff: SADIA DEE MD, RADIOLOGIST (Net Software Architect) Primary Interpreting Resident: JEFFREY FLOWER MD, GLUE MIXER /SADIA SNYDER [facility] Apr 23, 2024 06:[address] ABDOMEN/ PELVIS: FLACA WEAVER [id number] -1950 M Ex Date: APR 23, 2024@06:36 Req Phys: MCKAY VICTOR [facility] Loc: 3K04-24-2024@10:25 [facility] Loc: OUTSOURCE CT Service: Unknown (Case [id number] COMPLETE) NON CO CT ABDOMEN/PELVIS (CT Detailed) CPT:66137 Reason for Study: OUTSIDE STUDY Clinical History: OUTSIDE STUDY Report Status: Electronically Filed Date Reported: APR 24, 2024 Report: This is an outside Imaging study and/or report imported for continuity of patient care. This Imaging study and/or report was not reviewed or verified by a [place] Radiologist. Impression: This is an outside Imaging study and/or report imported for continuity of patient care. This Imaging study and/or report was not reviewed or verified by a [place] Radiologist. Primary Diagnostic Code: VERIFIED BY: / *ELECTRONICALLY FILED* [facility] Pathology Reports: +/- [...] comes from all [place] treatment facilities. Date/Time Pathology Report Provider Source Apr 21, 2024 07:28 AM LR MICROBIOLOGY RE PORT: Reporting Lab: [facility] [CLIA# [id number]] [place] [address] Accession [UID]: [id number] [[id number]] Received: Apr 21, 2024@08:16 Collection sample: URINE Collection date: Apr 21, 2024 07:28 Provider: ANANDA HUGGINS Comment on specimen: RECEIVED IN STERILE CUP Test(s) ordered: CULTURE & SUSCEPTIBILITY...... completed: Apr 22, 2024 * BACTERIOLOGY FINAL REPORT => Apr 22, 2024 08:38 TECH CODE: [id number] CULTURE RESULTS: NO GROWTH 24 HOURS Bacteriology Remark(s): THIS REPORT IS FINAL =--=--=--=--=--=--=--=--=--=--=--=- -=--=--=--=--=--=--=--=--=--=--=--= --=--=-- Performing Laboratory: Bacteriology Report Performed By: [facility] [CLIA# [id number]] [place] [address] [facility]
[2024-07-16 07:09] LABS: Calcium* 10.3 mg/dL (8.4-10.6)
--- OUTSIDE RECORDS SUMMARY | 2024-07-16 07:09 | XMS_ITS ---
[place] DAILY HOSPITALIZATION DATA [facility]CS Encounter Summary Created on: July 16, 2024 FLACA WEAVER : 1950 Sex: Male Author Name [facility] [place] [facility] [place] Address [address] [place] [address] Care Team Providers Care Process Helper Name Role Phone JATINDER BENITEZ Primary Care [...] Policy Weinstein's Name Patient's Relationship to Policy [place] MEDICARE (WNR) MEDICARE (M) PART A Sep 29, 2016 PART A [id number] [id number] [phone] JUDY WEAVER PATIENT Selected Encounter This section [...] 02:30 PM [place] [facility] May 02, 2024 10:00 AM [place] [facility] May 04, 2024 09:00 AM [place]ULATORY [place] [facility] May 07, 2024 08:45 AM [place] [facility] May 08, 2024 02:00 PM [place]ULATORY [place] [facility] May 09, 2024 07:30 AM [place] [facility] May 11, 2024 01:00 PM [place]ULATORY [place] [facility] May 11, 2024 03:30 PM [place] [facility] May 15, 2024 08:30 AM [place] [facility] May 16, 2024 07:45 AM [place] [facility] May 22, 2024 07:30 AM [place] [facility] May 22, 2024 05:30 PM [place]ATORY [place] [facility] May 25, 2024 08:22 AM [place]ATORY [place] [facility] May 25, 2024 09:00 AM [place]ATORY [place] [facility] May 28, 2024 08:15 AM [place] [facility] Jun 04, 2024 11:30 AM [place]ORY [place] [facility] Jun 08, 2024 11:00 AM [place] [facility] Jun 08, 2024 12:45 PM [place]ATORY [place] [facility] Jun 08, 2024 01:15 PM [place] [facility] Jun 08, 2024 01:45 PM AM[place]ULATORY [place] [facility] Active, Pending, and Scheduled Orders This [...] SUSCEPTIBILITY ~Culture sample from JUAN drain output [facility] Apr 26, 2024 10:10 AM Laboratory - Microbiology Order GRAM STAIN WOUND OTHER WC ONCE ~For Test: GRAM STAIN ~JUAN drain culture/gram stain [facility] May 28, 2024 12:00 AM Laboratory - Blood Bank Order TYPE & SCREEN - LAB BLOOD SP [facility] Jun 08, 2024 09:57 AM Laboratory - Chemistry Order URINALYSIS URINE WC ONCE [facility] Lab Results: +/- 30 days of [...] Range Comment May 21, 2024 06:59 AM [facility] BASIC METABOLIC PANEL+MG Specimen Type: PLASMA No comment entered. Ordering Provider: GOLDIE BENITEZ Report Released Date/Time: May 15, 2024 08:34 AM Reporting Lab: [facility] [id number] Performing Lab: [facility] [phone] CREATININE 0.9 mg/dL 0.7-1.2 UREA NITROGEN 18 mg/dL 8-26 GLUCOSE 126 mg/dL H 70-100 SODIUM 138 mmol/L 136-145 POTASSIUM 4.0 mmol/L 3.5-5.1 CHLORIDE 105 mmol/L 98-107 CO2 24 mmol/L 22-29 CALCIUM 9.8 mg/dL 8.4-10.2 MAGNESIUM 2.0 mg/dL 1.6-2.6 ANION GAP 9 mmol/L 5-15 .CREAT EGFR(CKD-EPI) >90 >60 May 04, 2024 08:36 AM [facility] BASIC METABOLIC PANEL+MG Specimen Type: PLASMA No comment entered. Ordering Provider: GOLDIE BENITEZ Report Released Date/Time: May 03, 2024 12:52 PM Reporting Lab: [facility] [phone] Performing Lab: [facility] [id number] CREATININE 0.7 mg/dL 0.7-1.2 UREA NITROGEN 13 mg/dL 8-26 GLUCOSE 91 mg/dL 70-100 SODIUM 141 mmol/L 136-145 POTASSIUM 3.6 mmol/L 3.5-5.1 CHLORIDE 109 mmol/L H 98-107 CO2 25 mmol/L 22-29 CALCIUM 8.9 mg/dL 8.4-10.2 MAGNESIUM 2.0 mg/dL 1.6-2.6 ANION GAP 7 mmol/L 5-15 .CREAT EGFR(CKD-EPI) >90 >60 Apr 26, 2024 07:16 AM [facility] BASIC METABOLIC PANEL+MG Specimen Type: PLASMA No comment entered. Ordering Provider: JONO RANDOLPH Report Released Date/Time: Apr 25, 2024 02:50 PM Reporting Lab: [facility] [id number] Performing Lab: [facility] [phone] CREATININE 0.7 mg/dL 0.7-1.2 UREA NITROGEN 15 mg/dL 8-26 GLUCOSE 106 mg/dL H 70-100 SODIUM 139 mmol/L 136-145 POTASSIUM 3.4 mmol/L L 3.5-5.1 CHLORIDE 105 mmol/L 98-107 CO2 25 mmol/L 22-29 CALCIUM 8.5 mg/dL 8.4-10.2 MAGNESIUM 2.2 mg/dL 1.6-2.6 ANION GAP 9 mmol/L 5-15 .CREAT EGFR(CKD-EPI) >90 >60 Apr 25, 2024 05:10 PM [facility] BASIC METABOLIC PANEL+MG Specimen Type: PLASMA No comment entered. Ordering Provider: GIOVANNI ADLER Report Released Date/Time: Apr 25, 2024 05:04 PM Reporting Lab: [facility] [phone] Performing Lab: [facility] [phone] CREATININE 0.7 mg/dL 0.7-1.2 UREA NITROGEN 15 mg/dL 8-26 GLUCOSE 104 mg/dL H 70-100 SODIUM 139 mmol/L 136-145 POTASSIUM 3.2 mmol/L L 3.5-5.1 CHLORIDE 103 mmol/L 98-107 CO2 28 mmol/L 22-29 CALCIUM 8.5 mg/dL 8.4-10.2 MAGNESIUM 2.2 mg/dL 1.6-2.6 ANION GAP 8 mmol/L 5-15 .CREAT EGFR(CKD-EPI) >90 >60 Apr 25, 2024 07:46 AM [facility] BASIC METABOLIC PANEL+MG Specimen Type: PLASMA No comment entered. Ordering Provider: GIOVANNI ADLER Report Released Date/Time: Apr 24, 2024 12:37 PM Reporting Lab: [facility] [phone] Performing Lab: [facility] [phone] CREATININE 0.7 mg/dL 0.7-1.2 UREA NITROGEN 14 mg/dL 8-26 GLUCOSE 127 mg/dL H 70-100 SODIUM 139 mmol/L 136-145 POTASSIUM 2.9 mmol/L L 3.5-5.1 CHLORIDE 101 mmol/L 98-107 CO2 29 mmol/L 22-29 CALCIUM 8.7 mg/dL 8.4-10.2 MAGNESIUM 2.3 mg/dL 1.6-2.6 ANION GAP 9 mmol/L 5-15 .CREAT EGFR(CKD-EPI) >90 >60 Apr 24, 2024 04:42 PM [facility] BASIC METABOLIC PANEL+MG Specimen Type: PLASMA No comment entered. Ordering Provider: GIOVANNI ADLER Report Released Date/Time: Apr 24, 2024 12:37 PM Reporting Lab: [facility] [phone] Performing Lab: [facility] [phone] CREATININE 0.7 mg/dL 0.7-1.2 UREA NITROGEN 16 mg/dL 8-26 GLUCOSE 97 mg/dL 70-100 SODIUM 138 mmol/L 136-145 POTASSIUM 2.7 mmol/L L 3.5-5.1 CHLORIDE 99 mmol/L 98-107 CO2 30 mmol/L H 22-29 CALCIUM 8.4 mg/dL 8.4-10.2 MAGNESIUM 2.1 mg/dL 1.6-2.6 ANION GAP 9 mmol/L 5-15 .CREAT EGFR(CKD-EPI) >90 >60 Apr 24, 2024 07:36 AM [facility] BASIC METABOLIC PANEL+MG Specimen Type: PLASMA Comment: Critical Value Reported To: Cait Zamorano RN 04-24-24@[address] [place] [address]. Critical value report confirmed. Ordering Provider: AARON VICTOR Report Released Date/Time: Apr 23, 2024 05:30 PM Reporting Lab: [facility] [phone] Performing Lab: [facility] [address] CREATININE 0.7 mg/dL 0.7-1.2 UREA NITROGEN 16 mg/dL 8-26 GLUCOSE 105 mg/dL H 70-100 SODIUM 138 mmol/L 136-145 POTASSIUM 2.3 mmol/L LL 3.5-5.1 CHLORIDE 98 mmol/L 98-107 CO2 29 mmol/L 22-29 CALCIUM 8.3 mg/dL L 8.4-10.2 MAGNESIUM 2.2 mg/dL 1.6-2.6 ANION GAP 11 mmol/L 5-15 .CREAT EGFR(CKD-EPI) >90 >60 Apr 24, 2024 07:35 AM [facility] CBC & DIFF Specimen Type: BLOOD Comment: Automated Differential Performed Ordering Provider: AARON VICTOR Report Released Date/Time: Apr 23, 2024 05:30 PM Reporting Lab: [facility] [phone] Performing Lab: [facility] [phone] WBC 10.49 10*3/uL 4.0-11.0 RBC 3.83 10*6/uL [...] 10*3/uL 0-0.1 Apr 23, 2024 01:20 PM [facility] LACTIC ACID Specimen Type: PLASMA No comment entered. Ordering Provider: AARON VICTOR Report Released Date/Time: Apr 23, 2024 12:05 PM Reporting Lab: [facility] [phone] Performing Lab: [facility] [address] LACTIC ACID 1.5 mmol/L 0.5-2.2 Apr 23, 2024 01:20 PM [facility] PROTHROMBIN TIME/INR Specimen Type: PLASMA No comment entered. Ordering Provider: AARON VICTOR Report Released Date/Time: Apr 23, 2024 12:05 PM Reporting Lab: [facility] [phone] Performing Lab: [facility] [address] .INR 1.2 H 0.8-1.1 .PT 14.5 s H 9.4-12.5 Apr 23, 2024 01:20 PM [facility] ACT PART THROMBO TIME Specimen Type: PLASMA No comment entered. Ordering Provider: AARON VICTOR Report Released Date/Time: Apr 23, 2024 12:05 PM Reporting Lab: [facility] [phone] Performing Lab: [facility] [address] APTT 29.3 s 25.1-36.5 Apr 23, 2024 01:20 PM [facility] COMPREHENSIVE METABOLIC PANEL+MG Specimen Type: PLASMA No comment entered. Ordering Provider: AARON VICTOR Report Released Date/Time: Apr 23, 2024 12:05 PM Reporting Lab: [facility] [address] Performing Lab: [facility] [address] CREATININE 0.7 mg/dL 0.7-1.2 UREA NITROGEN 19 [...] >90 >60 Apr 23, 2024 01:20 PM [facility] CBC & DIFF Specimen Type: BLOOD Comment: Automated Differential Performed Ordering Provider: AARON VICTOR Report Released Date/Time: Apr 23, 2024 12:05 PM Reporting Lab: [facility] [phone] Performing Lab: [facility] [address] WBC 12.50 10*3/uL H 4.0-11.0 RBC 4.07 [...] 10*3/uL 0-0.1 Apr 21, 2024 07:28 AM [facility] URINALYSIS Specimen Type: URINE No comment entered. Ordering Provider: ANANDA HUGGINS Report Released Date/Time: Apr 21, 2024 07:37 AM Reporting Lab: [facility] [address] Performing Lab: [facility] [address] URINE COLOR COLORLESS SPECIFIC GRAVITY 1.009 1.003-1.03 [...] 06, 2023 11:30 AM VA-TOBACCO FORMER USER [facility] Tobacco Use History This section includes a history of the smoking, or tobacco-related health factors, that were collected on or before the date of the Encounter. The data comes from the [place] facility where the Encounter took place. Date/Time Smoking Status/Tobacco Use Comment Angelo mott May 06, 2023 11:30 AM VA-TOBACCO QUIT 15 YRS OR MORE [facility] Jun 04, 2022 09:00 AM VA-TOBACCO FORMER USER [facility] Jun 04, 2022 09:00 AM VA-TOBACCO QUIT 15 YRS OR MORE [facility] Jul 10, 2021 08:00 AM VA-TOBACCO FORMER USER [facility] Jul 10, 2021 08:00 AM VA-TOBACCO QUIT 5 TO < 15 YRS [facility] May 23, 2020 08:30 AM VA-TOBACCO FORMER USER [facility] May 23, 2020 08:30 AM VA-TOBACCO QUIT 5 TO < 15 YRS [facility] Mar 20, 2019 04:03 PM VA-TOBACCO FORMER USER [facility] Mar 20, 2019 04:03 PM VA-TOBACCO QUIT 5 TO < 15 YRS [facility] Mar 21, 2018 08:13 AM FORMER TOBACCO USER 7Y OR GREATE R [facility] Feb 24, 2017 09:24 AM FORMER TOBACCO USER 7Y OR GREATE R [facility] January 07, 2016 08:01 AM FORMER TOBACCO USE >1Y <7Y [facility] Feb 03, 2015 07:58 AM FORMER TOBACCO USE <1Y [facility] Feb 26, 2014 08:41 AM CURRENT TOBACCO USER [facility] May 13, 2011 01:45 PM CURRENT TOBACCO USER [facility] Advance Directives: All historical and current [...] Mar 23, [address] [facility] Radiology Reports: +/- [...] FISTULOGRAM / S INOGRAM (P): MEGFLACADARCI LOBO [id number] -1950 M Exm Date: MAY 11, 2024@12:39 Req Phys: PALMIRA POWELL Loc: [facility] C/R FOLLOW-UP CLINIC (Req' Img Loc: INTERVENTIONAL RADIOLOGY Service: [place] [address] (Case [id number] COMPLETE) IR INJECTION FOR SINOGRAM DIAGNOS(ANI Detailed) CPT:75521 Contrast Media : Non-ionic Iodinated Reason for Study: s/p drain placement for diverticular abscess- assess for drain (Case [id number] COMPLETE) IR FISTULOGRAM OR SINOGRAM (ANI Detailed) CPT:62131 Contrast Media : unspecified contrast media (Case [id number] COMPLETE) IR DRAINAGE CATHETER SUPPLY (ANI Detailed) CPT:C1729 Clinical History: [place] IS NOT under investigation for COVID-19 or is COVID-19 negative s/p drain placement for diverticular abscess- assess for drain removal Contact number for responsible provider who can be reached for any questions or notifications of critical findings: [phone] Palmira Powell MD LAST CREATININE 0.7 (05/04/24) Report Status: Verified Date Reported: MAY 11, 2024 Date Verified: MAY 11, 2024 Skilled Helper E-Sig:/ES/AMINTA ESCALONA MD Report: PROCEDURES Abdominal drain [...] Interpreting Staff: AMINTA ESCALONA MD, INTERVENTIONAL RADIOLOGIST (Skilled Helper) /AMINTA VELAZCO [facility] May 11, 2024 11:[address] (AP) ABDOMEN/PE LVIS (P): FLACA WEAVER [id number] -1950 M Exm Date: MAY 11, 2024@11:40 Req Phys: PALMIRA POWELL Loc: [facility] C/R FOLLOW-UP CLINIC (Req' Img Loc: CT IMAGING Service: [place] [address] (Case [id number] COMPLETE) CT (AP) ABDOMEN/PELVIS W CONTRAST(CT Detailed) CPT:40752 Contrast Media : Non-ionic Iodinated Reason for [...] any questions or notifications of critical findings: [phone] Palmira Powell MD LAST 3: Collection DT [...] PLASMA .CREAT EGFR(CKD-E >90 Ref: >=60 Allergies: ([facility]) TERAZOSIN (Mar 13, 2015) Report Status: Verified Date Reported: MAY 11, 2024 Date Verified: MAY 11, 2024 Skilled Helper E-Sig:/ES/LISA PENDLETON MD Report: CT abdomen and [...] Primary Interpreting Staff: LISA PENDLETON MD, RADIOLOGIST (Skilled Helper) /JRT LISA PENDLETON [facility] Apr 24, 2024 02:13 PM ABSCESS DRAIN PLAC EMENT PERITONEAL (P): FLACA WEAVER [id number] -1950 M Exm Date: APR 24, 2024@14:13 Req Phys: TAURUS WOOD Loc: 3K04-24-2024@16:07 Img Loc: INTERVENTIONAL RADIOLOGY Service: PRIMARY [place] [address] (Case [id number] COMPLETE) IR PERITONEAL/RETROPERITONEAL PER(ANI Detailed) CPT:90850 Reason for Study: diverticular abscess Clinical History: [place] IS NOT under investigation for COVID-19 or is COVID-19 negative 73yo M with hx of recurrent diverticulitis, transferred from [facility] 04/[address] 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 Palmira Powell MD LAST CREATININE 0.7 (04/23/24) Report Status: Verified Date Reported: APR 24, 2024 Date Verified: APR 24, 2024 Skilled Helper E-Sig:/ES/SADIA DEE MD Report: PROCEDURES: Placement of [...] anesthesia. Using real-time CT fluoroscopy, a 5 Colombian Yueh catheter was advanced into the collection in the left lower quadrant. A wire was coiled in the collection. The tract into the collection was dilated to accommodate the 12 Colombian locking pigtail drainage catheter. The catheter was secured to the skin with monofilament suture and connected to JUAN bulb suction. Impression: Successful placement of a 12 Colombian locking pigtail drainage catheter in the left lower quadrant abscess. This catheter is connected to JUAN bulb suction with flushes, as ordered. I, SADIA DEE, have reviewed the images and report. Primary Interpreting Staff: SADIA DEE MD, RADIOLOGIST (Skilled Helper) Primary Interpreting Resident: JEFFREY FLOWER MD, FLIGHT TECHNICIAN /SADIA SNYDER [facility] Apr 24, 2024 02:[address] NEEDLE PLACEMEN T (P): FLACA WEAVER [id number] -1950 M Exm Date: APR 24, 2024@14:11 Req Phys: TAURUS WOOD Loc: 3K04-24-2024@16:07 Im Loc: CT IMAGING Service: PR[place] [address] (Case [id number] COMPLETE) CT SCAN FOR NEEDLE PLACEMENT (CT Detailed) CPT:47205 Reason for Study: diverticular abscess Clinical History: Report Status: Verified Date Reported: APR 24, 2024 Date Verified: APR 24, 2024 Skilled Helper E-Sig:/ES/SADIA DEE MD Report: PROCEDURES: Placement of [...] anesthesia. Using real-time CT fluoroscopy, a 5 Colombian Yueh catheter was advanced into the collection in the left lower quadrant. A wire was coiled in the collection. The tract into the collection was dilated to accommodate the 12 Colombian locking pigtail drainage catheter. The catheter was secured to the skin with monofilament suture and connected to JUAN bulb suction. Impression: Successful placement of a 12 Colombian locking pigtail drainage catheter in the left lower quadrant abscess. This catheter is connected to JUAN bulb suction with flushes, as ordered. I, SADIA DEE, have reviewed the images and report. Primary Interpreting Staff: SADIA DEE MD, RADIOLOGIST (Skilled Helper) Primary Interpreting Resident: JEFFREY FLOWER MD, FLIGHT TECHNICIAN /SADIA SNYDER [facility] Apr 23, 2024 06:[address] ABDOMEN/ PELVIS: FLACA WEAVER [id number] -1950 M Ex Date: APR 23, 2024@06:36 Req Phys: MCKAY VICTOR [facility] Loc: 3K04-24-2024@10:25 [facility] Loc: OUTSOURCE CT Service: Unknown (Case [id number] COMPLETE) NON [place] CT ABDOMEN/PELVIS (CT Detailed) CPT:97954 Reason for Study: OUTSIDE STUDY Clinical History: [...] Diagnostic Code: VERIFIED BY: / *ELECTRONICALLY FILED* [facility] Pathology Reports: +/- 30 days of [...] AM LR MICROBIOLOGY RE PORT: Reporting Lab: [facility] [CLIA# [id number]] [place] [address] Accession [UID]: [id number] [[id number]] Received: Apr 21, 2024@08:16 Collection sample: URINE Collection date: Apr 21, 2024 07:28 Provider: ANANDA HUGGINS Comment on specimen: RECEIVED IN STERILE CUP Test(s) ordered: CULTURE & SUSCEPTIBILITY...... completed: Apr 22, 2024 * BACTERIOLOGY FINAL REPORT => Apr 22, 2024 08:38 TECH CODE: [id number] CULTURE RESULTS: NO GROWTH 24 HOURS Bacteriology Remark(s): THIS REPORT IS FINAL =--=--=--=--=--=--=--=--=--=--=--=- -=--=--=--=--=--=--=--=--=--=--=--= --=--=-- Performing Laboratory: Bacteriology Report Performed By: [facility] [CLIA# [id number]] [place] [address] [facility]
--- OUTSIDE RECORDS SUMMARY | 2024-07-16 07:09 | XMS_ITS ---
[place] DAILY HOSPITALIZATION DATA [facility]CS Encounter Summary Created on: July 16, 2024 FLACA WEAVER : 1950 Sex: Male Author Name [facility] Organization [facility] Address [address] [place] [address] Care Team Providers Care Managing Consultant Clinical Professor Name Role Phone JATINDER BENITEZ Primary Care [...] PART A Sep 29, 2016 PART A [phone] JUDY WEAVER PATIENT Selected Encounter This section includes the information on record at [place] for the Encounter. Date/Time Encounter Type Encounter Description Reason Pro vider Source Apr 24, 2024 02:37 PM Inpatient Visit DAILY HOSPITALIZATION DATA [facility] Encounter Template Text not used by [place] Plan of Treatment: Future Appointments (+ 6 months) and Future Tests (+/- 45 days) The Plan of Treatment section includes future care activities for the patient from all [place] treatmentfacilities. This section includes future appointments and [...] 02:30 PM AMBULATORY - NONE [place] [facility] May 02, 2024 10:00 AM AMBULATORY - SURGERY [place] [facility] [facility] May 04, 2024 09:00 AM AMBULATORY - NONE [place] [facility] May 07, 2024 08:45 AM AMBULATORY - MEDICINE [place] [facility] May 08, 2024 02:00 PM AMBULATORY - NONE [place] [facility] [facility] May 09, 2024 07:30 AM AMBULATORY - SURGERY [place] [facility] [facility] May 11, 2024 01:00 PM AMBULATORY - NONE [place] [facility] May 11, 2024 03:30 PM AMBULATORY - NONE [place] [facility] May 15, 2024 08:30 AM AMBULATORY - [place]ICINE [place] [facility] [facility] May 16, 2024 07:45 AM AMBULATORY - SURGERY [place] [facility] [facility] May 22, 2024 07:30 AM AMBULATORY - NONE [place] [facility] May 22, 2024 05:30 PM AMBULATORY - NONE [place] [facility] May 25, 2024 08:22 AM AMBULATORY - NONE [place] [facility] [facility] May 25, 2024 09:00 AM AMBULATORY - NONE [place] [facility] May 28, 2024 08:15 AM AMBULATORY - SURGERY [place] [facility] [facility] Jun 04, 2024 11:30 AM AMBULATORY - NONE [place] [facility] Jun 08, 2024 11:00 AM AMBULATORY - SURGERY [place] [facility] [facility] Jun 08, 2024 12:45 PM AMBULATORY - NONE [place] [facility] Jun 08, 2024 01:15 PM AMBULATORY - MEDICINE [place] [facility] Jun 08, 2024 01:45 PM AMBULATORY - SURGERY [place] [facility] [facility] Active, Pending, and Scheduled Orders This section includes a listing of several types of active, pending, and scheduled orders, including clinic medications orders, diagnostic test orders, procedure orders and consult orders; where the start date of the order is 45 days before the date of the Encounter or 45 days after the date of theEncounter. The data comes from all [place] treatment facilities. Test Date/Time Test Type Test Details Facility Name Apr 26, 2024 10:10 AM Laboratory - Microbiology Order CULTURE & SUSCEPTIBILITY WOUND OTHER WC ONCE ~For Test: CULTURE & SUSCEPTIBILITY ~Culture sample from JUAN drain output [facility] Apr 26, 2024 10:10 AM Laboratory - Microbiology Order GRAM STAIN WOUND OTHER WC ONCE ~For Test: GRAM STAIN ~JUAN drain culture/gram stain [facility] May 28, 2024 12:00 AM Laboratory - Blood Bank Order TYPE & SCREEN - LAB BLOOD SP [facility] Jun 08, 2024 09:57 AM Laboratory - Chemistry Order URINALYSIS URINE WC ONCE [facility] Lab Results: [...] May 15, 2024 08:34 AM Reporting Lab: [facility] [phone] Performing Lab: [facility] [address] CREATININE 0.9 mg/dL 0.7-1.2 UREA NITROGEN 18 [...] May 03, 2024 12:52 PM Reporting Lab: [facility] [phone] Performing Lab: [facility] [address] CREATININE 0.7 mg/dL 0.7-1.2 UREA NITROGEN 13 [...] Apr 25, 2024 02:50 PM Reporting Lab: [facility] [address] Performing Lab: [facility] [address] CREATININE 0.7 mg/dL 0.7-1.2 UREA NITROGEN 15 [...] Apr 25, 2024 05:04 PM Reporting Lab: [facility] [address] Performing Lab: [facility] [address] CREATININE 0.7 mg/dL 0.7-1.2 UREA NITROGEN 15 [...] Apr 24, 2024 12:37 PM Reporting Lab: [facility] [address] Performing Lab: [facility] [address] CREATININE 0.7 mg/dL 0.7-1.2 UREA NITROGEN 14 [...] Apr 24, 2024 12:37 PM Reporting Lab: [facility] [address] Performing Lab: [facility] [address] CREATININE 0.7 mg/dL 0.7-1.2 UREA NITROGEN 16 [...] Value Reported To: Cait Zamorano RN 04-24-24@[address] [place] [address]. Critical value report confirmed. Ordering Provider: AARON VICTOR Report Released Date/Time: Apr 23, 2024 05:30 PM Reporting Lab: [facility] [address] Performing Lab: [facility] [address] CREATININE 0.7 mg/dL 0.7-1.2 UREA NITROGEN 16 [...] Apr 23, 2024 05:30 PM Reporting Lab: [facility] [address] Performing Lab: [facility] [address] WBC 10.49 10*3/uL 4.0-11.0 RBC 3.83 10*6/uL [...] Apr 23, 2024 12:05 PM Reporting Lab: [facility] [address] Performing Lab: [facility] [address] LACTIC ACID 1.5 mmol/L 0.5-2.2 Apr 23, 2024 01:20 PM [facility] PROTHROMBIN TIME/INR Specimen Type: PLASMA No comment entered. Ordering Provider: AARON VICTOR Report Released Date/Time: Apr 23, 2024 12:05 PM Reporting Lab: [facility] [address] Performing Lab: [facility] [address] .INR 1.2 H 0.8-1.1 .PT 14.5 s H 9.4-12.5 Apr 23, 2024 01:20 PM [facility] ACT PART THROMBO TIME Specimen Type: PLASMA No comment entered. Ordering Provider: AARON VICTOR Report Released Date/Time: Apr 23, 2024 12:05 PM Reporting Lab: [facility] [address] Performing Lab: [facility] [address] APTT 29.3 s 25.1-36.5 Apr 23, 2024 01:20 PM [facility] COMPREHENSIVE METABOLIC PANEL+MG Specimen Type: PLASMA No comment entered. Ordering Provider: AARON VICTOR Report Released Date/Time: Apr 23, 2024 12:05 PM Reporting Lab: [facility] [address] Performing Lab: [facility] [address] CREATININE 0.7 mg/dL 0.7-1.2 UREA NITROGEN 19 [...] Apr 23, 2024 12:05 PM Reporting Lab: [facility] [address] Performing Lab: [facility] [address] WBC 12.50 10*3/uL H 4.0-11.0 RBC 4.07 [...] Reporting Lab: [facility] [address] Performing Lab: [facility] [address] URINE COLOR COLORLESS SPECIFIC GRAVITY 1.009 1.003-1.03 [...] Source Apr 24, 2024 10:48 PM 5 [facility] Apr 24, 2024 06:35 PM 5 [facility] Apr 24, 2024 04:00 PM 59 147/71 14 0 [facility] Apr 24, 2024 12:15 PM 0 [facility] Apr 24, 2024 10:12 AM 4 [facility] Social History: Smoking Status [...] 06, 2023 11:30 AM VA-TOBACCO FORMER USER [facility] Tobacco Use [...] Mar 23, 2016 CLINICAL WARNING [facility] Radiology Reports: +/- 30 days of [...] FISTULOGRAM / S INOGRAM (P): MEGFLACADARCI LOBO [id number] -1950 M Exm Date: MAY 11, 2024@12:39 Req Phys: PALMIRA POWELL Loc: [facility] C/R FOLLOW-UP CLINIC (Req' Img Loc: INTERVENTIONAL RADIOLOGY Service: [place] [address] (Case [id number] COMPLETE) IR INJECTION FOR SINOGRAM DIAGNOS(ANI Detailed) CPT:64039 Contrast Media : Non-ionic Iodinated Reason for Study: s/p drain placement for diverticular abscess- assess for drain (Case [id number] COMPLETE) IR FISTULOGRAM OR SINOGRAM (ANI Detailed) CPT:16896 Contrast Media : unspecified contrast media (Case [id number] COMPLETE) IR DRAINAGE CATHETER SUPPLY (ANI Detailed) CPT:C1729 Clinical History: [place] IS NOT under investigation for COVID-19 or is COVID-19 negative s/p drain placement for diverticular abscess- assess for drain removal Contact number for responsible provider who can be reached for any questions or notifications of critical findings: [phone] Palmira Powell MD LAST CREATININE 0.7 (05/04/24) Report Status: Verified Date Reported: MAY 11, 2024 Date Verified: MAY 11, 2024 Passenger Car Upholsterer Apprentice E-Sig:/ES/AMINTA ESCALONA MD Report: PROCEDURES Abdominal drain [...] Interpreting Staff: AMINTA ESCALONA MD, INTERVENTIONAL RADIOLOGIST (Passenger Car Upholsterer Apprentice) /AMINTA VELAZCO [facility] May 11, 2024 11:[address] (AP) ABDOMEN/PE LVIS (P): FLACA WEAVER [id number] -1950 M Exm Date: MAY 11, 2024@11:40 Req Phys: PALMIRA POWELL Loc: [facility] C/R FOLLOW-UP CLINIC (Req' Img Loc: CT IMAGING Service: [place] [address] (Case [id number] COMPLETE) CT (AP) ABDOMEN/PELVIS W CONTRAST(CT Detailed) CPT:24464 Contrast Media : Non-ionic Iodinated Reason for [...] any questions or notifications of critical findings: [phone] Palmira Powell MD LAST 3: Collection DT [...] PLASMA .CREAT EGFR(CKD-E >90 Ref: >=60 Allergies: ([facility]) TERAZOSIN (Mar 13, 2015) Report Status: Verified Date Reported: MAY 11, 2024 Date Verified: MAY 11, 2024 Passenger Car Upholsterer Apprentice E-Sig:/ES/LISA PEDNLETON MD Report: CT abdomen and [...] Primary Interpreting Staff: LISA PENDLETON MD, RADIOLOGIST (Passenger Car Upholsterer Apprentice) /JRT LISA PENDLETON [facility] Apr 24, 2024 02:13 PM ABSCESS DRAIN PLAC EMENT PERITONEAL (P): FLACA WEAVER [id number] -1950 M Exm Date: APR 24, 2024@14:13 Req Phys: TAURUS WOOD Loc: 3K04-24-2024@16:07 Img Loc: INTERVENTIONAL RADIOLOGY Service: PRIMARY [place] [address] (Case [id number] COMPLETE) IR PERITONEAL/RETROPERITONEAL PER(ANI Detailed) CPT:22533 Reason for Study: diverticular abscess Clinical History: [place] IS NOT under investigation for COVID-19 or is COVID-19 negative 73yo M with hx of recurrent diverticulitis, transferred from [facility] 04/[address] 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 Palmira Powell MD LAST CREATININE 0.7 (04/23/24) Report Status: Verified Date Reported: APR 24, 2024 Date Verified: APR 24, 2024 Passenger Car Upholsterer Apprentice E-Sig:/ES/SADIA DEE MD Report: PROCEDURES: Placement of [...] anesthesia. Using real-time CT fluoroscopy, a 5 [place] Yueh catheter was advanced into the collection in the left lower quadrant. A wire was coiled in the collection. The tract into the collection was dilated to accommodate the 12 [place] Citizen locking pigtail drainage catheter. The catheter was secured to the skin with monofilament suture and connected to JUAN bulb suction. Impression: Successful placement of a 12 [place] locking pigtail drainage catheter in the left lower quadrant abscess. This catheter is connected to JUAN bulb suction with flushes, as ordered. I, SADIA DEE, have reviewed the images and report. Primary Interpreting Staff: SADIA DEE MD, RADIOLOGIST (Passenger Car Upholsterer Apprentice) Primary Interpreting Resident: JEFFREY FLOWER MD, CORN HUSK BALER /SADIA SNYDER [facility] Apr 24, 2024 02:[address] NEEDLE PLACEMEN T (P): FLACA WEAVER [id number] -1950 M Exm Date: APR 24, 2024@14:11 Req Phys: TAURUS WOOD Loc: 3K04-24-2024@16:07 Im Loc: CT IMAGING Service: PR[place] [address] (Case [id number] COMPLETE) CT SCAN FOR NEEDLE PLACEMENT (CT Detailed) CPT:71910 Reason for Study: diverticular abscess Clinical History: Report Status: Verified Date Reported: APR 24, 2024 Date Verified: APR 24, 2024 Passenger Car Upholsterer Apprentice E-Sig:/ES/SADIA DEE MD Report: PROCEDURES: Placement of [...] anesthesia. Using real-time CT fluoroscopy, a 5 [place] Citizen Yueh catheter was advanced into the collection in the left lower quadrant. A wire was coiled in the collection. The tract into the collection was dilated to accommodate the 12 [place] Citizen locking pigtail drainage catheter. The catheter was secured to the skin with monofilament suture and connected to JUAN bulb suction. Impression: Successful placement of a 12 [place] Citizen locking pigtail drainage catheter in the left lower quadrant abscess. This catheter is connected to JUAN bulb suction with flushes, as ordered. I, SADIA DEE, have reviewed the images and report. Primary Interpreting Staff: SADIA DEE MD, RADIOLOGIST (Passenger Car Upholsterer Apprentice) Primary Interpreting Resident: JEFFREY FLOWER MD, CORN HUSK BALER /SADIA SNYDER [facility] Apr 23, 2024 06:36 AM [facility] CT ABDOMEN/ PELVIS: FLACA WEAVER [id number] -1950 M Ex Date: APR 23, 2024@06:36 Req Phys: MCKAY VICTOR [facility] Loc: 3K04-24-2024@10:25 [facility] Loc: OUTSOURCE CT Service: Unknown (Case [id number] COMPLETE) NON [place] CT ABDOMEN/PELVIS (CT Detailed) CPT:59976 Reason for Study: OUTSIDE STUDY Clinical History: [...] Lab: [facility] [CLIA# [id number]] [place] [address] Accession [UID]: [id number] [[id number]] Received: Apr 21, 2024@08:16 Collection sample: URINE Collection date: Apr 21, 2024 07:28 Provider: ANANDA HUGGINS Comment on specimen: RECEIVED IN STERILE CUP Test(s) ordered: CULTURE & SUSCEPTIBILITY...... completed: Apr 22, 2024 * BACTERIOLOGY FINAL REPORT => Apr 22, 2024 08:38 TECH CODE: [id number] CULTURE RESULTS: NO GROWTH 24 HOURS Bacteriology Remark(s): THIS REPORT IS FINAL =--=--=--=--=--=--=--=--=--=--=--=- -=--=--=--=--=--=--=--=--=--=--=--= --=--=-- Performing Laboratory: Bacteriology Report Performed By: [facility] [CLIA# [id number]] [place] [address] [facility]
--- OUTSIDE RECORDS SUMMARY | 2024-07-16 07:09 | XMS_ITS | Encounter Summary ---
Author Name [facility] [place] [facility] [place] Address [address] [place] [address] Care Team Providers Care Plastering Supervisor Name Role Phone JATINDER BENITEZ Primary [...] PART A Sep 29, 2016 PART A [phone] JUDY WEAVER PATIENT Selected Encounter This section [...] perforation and abscess w/o bleeding PALMIRA POWELL [facility] Plan of Treatment: Future Appointments (+ 6 months) and Future Tests (+/- 45 days) The Plan of Treatment section includes future care activities for the [facility] [place] [facility] This section includes future appointments and future orders which are active, pending or scheduled. Future Appointments This section includes appointments that were scheduled to occur 6 months from the date of the Encounter, up to a maximum of 20 appointments. The data comes from all [facility] facilities. Appointment Date/Time Appointment Type Appointme [...] SUSCEPTIBILITY ~Culture sample from JUAN drain output [facility] Apr 26, 2024 10:10 AM Laboratory - Microbiology Order GRAM STAIN WOUND OTHER WC ONCE ~For Test: GRAM STAIN ~JUAN drain culture/gram stain [facility] May 28, 2024 12:00 AM Laboratory - Blood Bank Order TYPE & SCREEN - LAB BLOOD SP [facility] Jun 08, 2024 09:57 AM Laboratory - Chemistry Order URINALYSIS URINE WC ONCE [facility] Lab Results: +/- 30 days of the [...] Range Comment May 21, 2024 06:59 AM [facility] BASIC METABOLIC PANEL+MG Specimen Type: PLASMA No comment entered. Ordering Provider: GOLDIE BENITEZ Report Released Date/Time: May 15, 2024 08:34 AM Reporting Lab: [facility] [phone] Performing Lab: [facility] [phone] CREATININE 0.9 mg/dL 0.7-1.2 UREA NITROGEN 18 mg/dL 8-26 GLUCOSE 126 mg/dL H 70-100 SODIUM 138 mmol/L 136-145 POTASSIUM 4.0 mmol/L 3.5-5.1 CHLORIDE 105 mmol/L 98-107 CO2 24 mmol/L 22-29 CALCIUM 9.8 mg/dL 8.4-10.2 MAGNESIUM 2.0 mg/dL 1.6-2.6 ANION GAP 9 mmol/L 5-15 .CREAT EGFR(CKD-EPI) >90 >60 May 04, 2024 08:36 AM [facility] BASIC METABOLIC PANEL+MG Specimen Type: PLASMA No comment entered. Ordering Provider: GOLDIE BENITEZ Report Released Date/Time: May 03, 2024 12:52 PM Reporting Lab: [facility] [phone] Performing Lab: [facility] [phone] CREATININE 0.7 mg/dL 0.7-1.2 UREA NITROGEN 13 mg/dL 8-26 GLUCOSE 91 mg/dL 70-100 SODIUM 141 mmol/L 136-145 POTASSIUM 3.6 mmol/L 3.5-5.1 CHLORIDE 109 mmol/L H 98-107 CO2 25 mmol/L 22-29 CALCIUM 8.9 mg/dL 8.4-10.2 MAGNESIUM 2.0 mg/dL 1.6-2.6 ANION GAP 7 mmol/L 5-15 .CREAT EGFR(CKD-EPI) >90 >60 Apr 26, 2024 07:16 AM [facility] BASIC METABOLIC PANEL+MG Specimen Type: PLASMA No comment entered. Ordering Provider: JONO RANDOLPH Report Released Date/Time: Apr 25, 2024 02:50 PM Reporting Lab: [facility] [phone] Performing Lab: [facility] [phone] CREATININE 0.7 mg/dL 0.7-1.2 UREA NITROGEN 15 mg/dL 8-26 GLUCOSE 106 mg/dL H 70-100 SODIUM 139 mmol/L 136-145 POTASSIUM 3.4 mmol/L L 3.5-5.1 CHLORIDE 105 mmol/L 98-107 CO2 25 mmol/L 22-29 CALCIUM 8.5 mg/dL 8.4-10.2 MAGNESIUM 2.2 mg/dL 1.6-2.6 ANION GAP 9 mmol/L 5-15 .CREAT EGFR(CKD-EPI) >90 >60 Apr 25, 2024 05:10 PM [facility] BASIC METABOLIC PANEL+MG Specimen Type: PLASMA No comment entered. Ordering Provider: GIOVANNI ADLER Report Released Date/Time: Apr 25, 2024 05:04 PM Reporting Lab: [facility] [phone] Performing Lab: [facility] [address] CREATININE 0.7 mg/dL 0.7-1.2 UREA NITROGEN 15 mg/dL 8-26 GLUCOSE 104 mg/dL H 70-100 SODIUM 139 mmol/L 136-145 POTASSIUM 3.2 mmol/L L 3.5-5.1 CHLORIDE 103 mmol/L 98-107 CO2 28 mmol/L 22-29 CALCIUM 8.5 mg/dL 8.4-10.2 MAGNESIUM 2.2 mg/dL 1.6-2.6 ANION GAP 8 mmol/L 5-15 .CREAT EGFR(CKD-EPI) >90 >60 Apr 25, 2024 07:46 AM [facility] BASIC METABOLIC PANEL+MG Specimen Type: PLASMA No comment entered. Ordering Provider: GIOVANNI ADLER Report Released Date/Time: Apr 24, 2024 12:37 PM Reporting Lab: [facility] [phone] Performing Lab: [facility] [phone] CREATININE 0.7 mg/dL 0.7-1.2 UREA NITROGEN 14 mg/dL 8-26 GLUCOSE 127 mg/dL H 70-100 SODIUM 139 mmol/L 136-145 POTASSIUM 2.9 mmol/L L 3.5-5.1 CHLORIDE 101 mmol/L 98-107 CO2 29 mmol/L 22-29 CALCIUM 8.7 mg/dL 8.4-10.2 MAGNESIUM 2.3 mg/dL 1.6-2.6 ANION GAP 9 mmol/L 5-15 .CREAT EGFR(CKD-EPI) >90 >60 Apr 24, 2024 04:42 PM [facility] BASIC METABOLIC PANEL+MG Specimen Type: PLASMA No comment entered. Ordering Provider: GIOVANNI ADLER Report Released Date/Time: Apr 24, 2024 12:37 PM Reporting Lab: [facility] [phone] Performing Lab: [facility] [phone] CREATININE 0.7 mg/dL 0.7-1.2 UREA NITROGEN 16 mg/dL 8-26 GLUCOSE 97 mg/dL 70-100 SODIUM 138 mmol/L 136-145 POTASSIUM 2.7 mmol/L L 3.5-5.1 CHLORIDE 99 mmol/L 98-107 CO2 30 mmol/L H 22-29 CALCIUM 8.4 mg/dL 8.4-10.2 MAGNESIUM 2.1 mg/dL 1.6-2.6 ANION GAP 9 mmol/L 5-15 .CREAT EGFR(CKD-EPI) >90 >60 Apr 24, 2024 07:36 AM [facility] BASIC METABOLIC PANEL+MG Specimen Type: PLASMA Comment: Critical Value Reported To: Cait Zamorano RN 8--24@[address] [place] [address]. Critical value report confirmed. Ordering Provider: AARON VICTOR Report Released Date/Time: Apr 23, 2024 05:30 PM Reporting Lab: [facility] [phone] Performing Lab: [facility] [address] CREATININE 0.7 mg/dL 0.7-1.2 UREA NITROGEN 16 mg/dL 8-26 GLUCOSE 105 mg/dL H 70-100 SODIUM 138 mmol/L 136-145 POTASSIUM 2.3 mmol/L LL 3.5-5.1 CHLORIDE 98 mmol/L 98-107 CO2 29 mmol/L 22-29 CALCIUM 8.3 mg/dL L 8.4-10.2 MAGNESIUM 2.2 mg/dL 1.6-2.6 ANION GAP 11 mmol/L 5-15 .CREAT EGFR(CKD-EPI) >90 >60 Apr 24, 2024 07:35 AM [facility] CBC & DIFF Specimen Type: BLOOD Comment: Automated Differential Performed Ordering Provider: AARON VICTOR Report Released Date/Time: Apr 23, 2024 05:30 PM Reporting Lab: [facility] [phone] Performing Lab: [facility] [phone] WBC 10.49 10*3/uL 4.0-11.0 RBC 3.83 10*6/uL [...] 10*3/uL 0-0.1 Apr 23, 2024 01:20 PM [facility] LACTIC ACID Specimen Type: PLASMA No comment entered. Ordering Provider: AARON VICTOR Report Released Date/Time: Apr 23, 2024 12:05 PM Reporting Lab: [facility] [address] Performing Lab: [facility] [address] LACTIC ACID 1.5 mmol/L 0.5-2.2 Apr 23, 2024 01:20 PM [facility] PROTHROMBIN TIME/INR Specimen Type: PLASMA No comment entered. Ordering Provider: AARON VICTOR Report Released Date/Time: Apr 23, 2024 12:05 PM Reporting Lab: [facility] [address] Performing Lab: [facility] [address] .INR 1.2 H 0.8-1.1 .PT 14.5 s H 9.4-12.5 Apr 23, 2024 01:20 PM [facility] ACT PART THROMBO TIME Specimen Type: PLASMA No comment entered. Ordering Provider: AARON VICTOR Report Released Date/Time: Apr 23, 2024 12:05 PM Reporting Lab: [facility] [address] Performing Lab: [facility] [address] APTT 29.3 s 25.1-36.5 Apr 23, 2024 01:20 PM [facility] COMPREHENSIVE METABOLIC PANEL+MG Specimen Type: PLASMA No comment entered. Ordering Provider: AARON VICTOR Report Released Date/Time: Apr 23, 2024 12:05 PM Reporting Lab: [facility] [phone] Performing Lab: [facility] [address] CREATININE 0.7 mg/dL 0.7-1.2 UREA NITROGEN 19 [...] >90 >60 Apr 23, 2024 01:20 PM [facility] CBC & DIFF Specimen Type: BLOOD Comment: Automated Differential Performed Ordering Provider: AARON VICTOR Report Released Date/Time: Apr 23, 2024 12:05 PM Reporting Lab: [facility] [address] Performing Lab: [facility] [address] WBC 12.50 10*3/uL H 4.0-11.0 RBC 4.07 [...] 10*3/uL 0-0.1 Apr 21, 2024 07:28 AM [facility] URINALYSIS Specimen Type: URINE No comment entered. Ordering Provider: ANANDA HUGGINS Report Released Date/Time: Apr 21, 2024 07:37 AM Reporting Lab: [facility] [address] Performing Lab: [facility] [address] URINE COLOR COLORLESS SPECIFIC GRAVITY 1.009 1.003-1.03 [...] Source Apr 24, 2024 10:48 PM 5 [facility] Apr 24, 2024 06:35 PM 5 [facility] Apr 24, 2024 04:00 PM 59 147/71 14 0 [facility] Apr 24, 2024 12:15 PM 0 [facility] Apr 24, 2024 10:12 AM 4 [facility] Social History: Smoking Status (Most [...] 06, 2023 11:30 AM VA-TOBACCO FORMER USER [facility] Tobacco Use History This section includes a history of the smoking, or tobacco-related health factors, that were collected on or before the date of the Encounter. The data comes from the [place] facility where the Encounter took place. Date/Time Smoking Status/Tobacco Use Comment F acility May 06, 2023 11:30 AM VA-TOBACCO QUIT 15 YRS OR MORE [facility] Jun 04, 2022 09:00 AM VA-TOBACCO FORMER USER [facility] Jun 04, 2022 09:00 AM VA-TOBACCO QUIT 15 YRS OR MORE [facility] Jul 10, 2021 08:00 AM VA-TOBACCO FORMER USER [facility] Jul 10, 2021 08:00 AM VA-TOBACCO QUIT 5 TO < 15 YRS [facility] May 23, 2020 08:30 AM VA-TOBACCO FORMER USER [facility] May 23, 2020 08:30 AM VA-TOBACCO QUIT 5 TO < 15 YRS [facility] Mar 20, 2019 04:03 PM VA-TOBACCO FORMER USER [facility] Mar 20, 2019 04:03 PM VA-TOBACCO QUIT 5 TO < 15 YRS [facility] Mar 21, 2018 08:13 AM FORMER TOBACCO USER 7Y OR GREATE R [facility] Feb 24, 2017 09:24 AM FORMER TOBACCO USER 7Y OR GREATE R [facility] January 07, 2016 08:01 AM FORMER TOBACCO USE >1Y <7Y [facility] Feb 03, 2015 07:58 AM FORMER TOBACCO USE <1Y [facility] Feb 26, 2014 08:41 AM CURRENT TOBACCO USER [facility] May 13, 2011 01:45 PM CURRENT TOBACCO USER [facility] Advance Directives: All historical and current Section [...] FISTULOGRAM / S INOGRAM (P): FLACA WEAVER [id number] -1950 M Exm Date: MAY 11, 2024@12:39 Req Phys: PALMIRA POWELL Loc: [facility] C/R FOLLOW-UP CLINIC (Req' Img Loc: INTERVENTIONAL RADIOLOGY Service: [place] [address] (Case [id number] COMPLETE) IR INJECTION FOR SINOGRAM DIAGNOS(ANI Detailed) CPT:17609 Contrast Media : Non-ionic Iodinated Reason for Study: s/p drain placement for diverticular abscess- assess for drain (Case [id number] COMPLETE) IR FISTULOGRAM OR SINOGRAM (ANI Detailed) CPT:28217 Contrast Media : unspecified contrast media (Case [id number] COMPLETE) IR DRAINAGE CATHETER SUPPLY (ANI Detailed) CPT:C1729 Clinical History: IS NOT under investigation for COVID-19 or is COVID-19 negative s/p drain placement for diverticular abscess- assess for drain removal Contact number for responsible provider who can be reached for any questions or notifications of critical findings: [phone] Palmira Powell MD LAST CREATININE 0.7 (05/04/24) Report Status: Verified Date Reported: MAY 11, 2024 Date Verified: MAY 11, 2024 Fish Conservationist E-Sig:/ES/AMINTA ESCALONA MD Report: PROCEDURES Abdominal drain [...] Interpreting Staff: AMINTA ESCALONA MD, INTERVENTIONAL RADIOLOGIST (Fish Conservationist) /AMINTA VELAZCO [facility] May 11, 2024 11:[address] (AP) ABDOMEN/PE LVIS (P): FLACA WEAVER [id number] -1950 M Exm Date: MAY 11, 2024@11:40 Req Phys: PALMIRA POEWLL Loc: [facility] C/R FOLLOW-UP CLINIC (Req' Img Loc: CT IMAGING Service: [place] [address] (Case [id number] COMPLETE) CT (AP) ABDOMEN/PELVIS W CONTRAST(CT Detailed) CPT:12111 Contrast Media : Non-ionic Iodinated Reason for [...] any questions or notifications of critical findings: [phone] Palmira Powell MD LAST 3: Collection DT [...] PLASMA .CREAT EGFR(CKD-E >90 Ref: >=60 Allergies: ([place] only) TERAZOSIN (Mar 13, 2015) Report Status: Verified Date Reported: MAY 11, 2024 Date Verified: MAY 11, 2024 Fish Conservationist E-Sig:/ES/LISA PENDLETON MD Report: CT abdomen and [...] Primary Interpreting Staff: LISA PENDLETON MD, RADIOLOGIST (Fish Conservationist) /JRT LISA PENDLETON [facility] Apr 24, 2024 02:13 PM ABSCESS DRAIN PLAC EMENT PERITONEAL (P): FLACA WEAVER [id number] -1950 M Exm Date: APR 24, 2024@14:13 Req Phys: TAURUS WOOD Loc: 3K04-24-2024@16:07 Img Loc: INTERVENTIONAL RADIOLOGY Service: [place] [address] (Case [id number] COMPLETE) IR PERITONEAL/RETROPERITONEAL PER(ANI Detailed) CPT:10817 Reason for Study: diverticular abscess Clinical History: [...] any questions or notifications of critical findings: [phone] If ordering provider is a trainee, enter the name and contact information of the responsible staff physician. Palmira Powell MD LAST CREATININE 0.7 (08/26/24) Report Status: Verified Date Reported: APR 24, 2024 Date Verified: APR 24, 2024 Fish Conservationist E-Sig:/ES/SADIA DEE MD Report: PROCEDURES: Placement of [...] anesthesia. Using real-time CT fluoroscopy, a 5 Portuguese Yueh catheter was advanced into the collection in the left lower quadrant. A wire was coiled in the collection. The tract into the collection was dilated to accommodate the 12 Portuguese locking pigtail drainage catheter. The catheter was secured to the skin with monofilament suture and connected to JUAN bulb suction. Impression: Successful placement of a 12 Portuguese locking pigtail drainage catheter in the left lower quadrant abscess. This catheter is connected to JUAN bulb suction with flushes, as ordered. I, SADIA DEE, have reviewed the images and report. Primary Interpreting Staff: SADIA DEE MD, RADIOLOGIST (Fish Conservationist) Primary Interpreting Resident: JEFFREY FLOWER MD, MEDICAL PHYSICS TEACHER /SADIA SNYDER [facility] Apr 24, 2024 02:[address] NEEDLE PLACEMEN T (P): FLACA WEAVER [id number] -1950 M Exm Date: APR 24, 2024@14:11 Req Phys: TAURUS WOODE Amanda Loc: 3K04-24-2024@16:07 Img Loc: CT IMAGING Service: [place] [address] (Case [id number] COMPLETE) CT SCAN FOR NEEDLE PLACEMENT (CT Detailed) CPT:47370 Reason for Study: diverticular abscess Clinical History: Report Status: Verified Date Reported: APR 24, 2024 Date Verified: APR 24, 2024 Fish Conservationist E-Sig:/ES/SADIA DEE MD Report: PROCEDURES: Placement of [...] anesthesia. Using real-time CT fluoroscopy, a 5 Portuguese Yueh catheter was advanced into the collection in the left lower quadrant. A wire was coiled in the collection. The tract into the collection was dilated to accommodate the 12 Portuguese locking pigtail drainage catheter. The catheter was secured to the skin with monofilament suture and connected to JUAN bulb suction. Impression: Successful placement of a 12 Portuguese locking pigtail drainage catheter in the left lower quadrant abscess. This catheter is connected to JUAN bulb suction with flushes, as ordered. I, SADIA DEE, have reviewed the images and report. Primary Interpreting Staff: SADIA DEE MD, RADIOLOGIST (Fish Conservationist) Primary Interpreting Resident: JEFFREY FLOWER MD, MEDICAL PHYSICS TEACHER /SADIA SNYDER [facility] Apr 23, 2024 06:[address] ABDOMEN/ PELVIS: FLACA WEAVER [id number] -1950 M Exm Date: APR 23, 2024@06:36 Req Phys: MCKAY VICTOR Pat Loc: 04-24-2024@10:25 Img Loc: OUTSOURCE CT Service: Unknown (Case [id number] COMPLETE) NON VA CT ABDOMEN/PELVIS (CT Detailed) CPT:20165 Reason for Study: OUTSIDE STUDY Clinical History: [...] Diagnostic Code: VERIFIED BY: / *ELECTRONICALLY FILED* [facility] Pathology Reports: +/- 30 days of the [...] AM LR MICROBIOLOGY RE PORT: Reporting Lab: [facility] [CLIA# [id number]] [place] [address] Accession [UID]: [id number] [[id number]] Received: Apr 21, 2024@08:16 Collection sample: URINE Collection date: Apr 21, 2024 07:28 Provider: ANANDA HUGGINS Comment on specimen: RECEIVED IN STERILE CUP Test(s) ordered: CULTURE & SUSCEPTIBILITY...... completed: Apr 22, 2024 * BACTERIOLOGY FINAL REPORT => Apr 22, 2024 08:38 TECH CODE: [id number] CULTURE RESULTS: NO GROWTH 24 HOURS Bacteriology Remark(s): THIS REPORT IS FINAL =--=--=--=--=--=--=--=--=--=--=--=- -=--=--=--=--=--=--=--=--=--=--=--= --=--=-- Performing Laboratory: Bacteriology Report Performed By: [facility] [CLIA# [id number]] [address] [place] [address] [facility] Encounter Notes: All associated encounter notes This section contains the clinical notes associated to the Encounter. Date/Time Encounter Note(s) Provider Source Apr 24, 2024 08:00 AM COLON & RECTAL ELISA BRAEDEN NOTE: LOCAL TITLE: COLON-RECTAL INPT PROGRESS NOTE STANDARD TITLE: COLON & RECTAL SURGERY NOTE DATE OF NOTE: APR 24, 2024@08:00 ENTRY DATE: APR 24, 2024@10:48:27 AUTHOR: JULIO RUSH EXP COSIGNER: URGENCY: STATUS: COMPLETED COLON-RECTAL INPT PROGRESS NOTE Has ADDENDA INPATIENT PROGRESS NOTE Assessment/Plan: 73 Y M admitted with H diverticulitis over the past 8 years, HTN, [...] TOTAL 0.7 (04/23/24) Imaging No new imaging /es/ JULIO RUSH Resident - Surgery Signed: 04/24/2024 10:54 Receipt Acknowledged By: 04/24/2024 17:50 /es/ PALMIRA POWELL MD STAFF SURGEON, COLON/RECTAL 04/24/2024 ADDENDUM STATUS: COMPLETED pt at IR when attempted to see patient on rounds. discussed patient with resident and agree with assessment and plan. Total time spent: 35min /es/ PALMIRA POWELL MD STAFF SURGEON, COLON/RECTAL Signed: 04/24/2024 17:48 JULIO RUSH [facility]
--- OUTSIDE RECORDS SUMMARY | 2024-07-16 07:09 | XMS_ITS | Encounter Summary ---
Author Name [facility] [place] [facility] [place] [facility] [place] Address [address] [place] [address] Care Team Providers Care Station Installation Supervisor Name Role Phone JATINDER BENITEZ Primary [...] PART A Sep 29, 2016 PART A [id number] JUDY WEAVER PATIENT Selected Encounter This section includes the information on record at [place] for the Encounter. Date/Time Encounter Type Encounter Description Reason Provider Source Apr 24, 2024 08:53 AM INJ PERFLUTREN LIP MICROS,ML CARDIAC ECHO ICD-10-CM R94.31 Abnormal electrocardiogram [ECG] [EKG] SARAI BENAVIDES Encounter Template Text not used by [place] Assessments - Encounter Diagnoses This section includes the primary and secondary diagnoses documented for the Encounter. Date/Time Primary/Secondary Diagnosis Diagnosis Name Provider Source Apr 24, 2024 08:54 AM PRIMARY Abnormal electrocardiogram [ECG] [EKG] ROSALINA ANGLIN [facility] Plan of Treatment: Future Appointments (+ 6 months) and Future Tests (+/- 45 days) The Plan of Treatment section includes future care activities for the patient [facility] [place] [facility]. This section includes future appointments and future orders which are active, pending or scheduled. Future Appointments This section includes appointments that were scheduled to occur 6 months from the date of the Encounter, up to a maximum of 20 appointments. The data comes from all [facility]. Appointment Date/Time Appointment Type Appointme nt Facility Name Apr 27, 2024 02:30 PM AM[place]ORY [place]ONE [place] [facility] May 02, 2024 10:00 AM AMBUL[place]ORY [place] [facility] May 04, 2024 09:00 AM AM[place]ORY - [place]ONE [place] [facility] May 07, 2024 08:45 AM [place]ORY [place]IC[place] [facility] May 08, 2024 02:00 PM AM[place]UL[place]ORY - NONE [place] [facility] May 09, 2024 07:30 AM [place] [facility] May 11, 2024 01:00 PM AM[place]ORY - [place]ONE [place] [facility] May 11, 2024 03:30 PM AM[place]ORY - [place]ONE [place] [facility] May 15, 2024 08:30 AM [place] [facility] May 16, 2024 07:45 AM AM[place]UL[place]ORY [place]GERY [place] [facility] May 22, 2024 07:30 AM AM[place]ORY [place]ONE [place] [facility] May 22, 2024 05:30 PM AM[place]ORY - [place]ONE [place] [facility] May 25, 2024 08:22 AM AM[place]UL[place]ORY - [place]ONE [place] [facility] May 25, 2024 09:00 AM AM[place]ORY [place]ONE [place] [facility] May 28, 2024 08:15 AM [place] [facility] Jun 04, 2024 11:30 AM AM[place]ORY [place]ONE [place] [facility] Jun 08, 2024 11:00 AM [place] [facility] Jun 08, 2024 12:45 PM AM[place]ORY - NONE [place] [facility] Jun 08, 2024 01:15 PM [place]IC[place] [facility] Jun 08, 2024 01:45 PM AM[place]ORY - SURGERY [place] [facility] Active, Pending, and Scheduled Orders This section includes a listing of several types of active, pending, and scheduled orders, including clinic medications orders, diagnostic test orders, procedure orders and consult orders; where the start date of the order is 45 days before the date of the Encounter or 45 days after the date of theEncounter. The data comes from all [place] treatment facilities. Test Date/Time Test Type Test Details Facility Name Apr 26, 2024 10:10 AM Laboratory - Microbiology Order CULTURE & SUSCEPTIBILITY WOUND OTHER WC ONCE ~For Test: CULTURE & SUSCEPTIBILITY ~Culture sample from JUAN drain output [facility] Apr 26, 2024 10:10 AM Laboratory - Microbiology Order GRAM STAIN WOUND OTHER WC ONCE ~For Test: GRAM STAIN ~JUAN drain culture/gram stain [facility] May 28, 2024 12:00 AM Laboratory - Blood Bank Order TYPE & SCREEN - LAB BLOOD SP [facility] Jun 08, 2024 09:57 AM Laboratory - Chemistry Order URINALYSIS URINE WC ONCE [facility] Lab Results: +/- 30 days of the encounter This section includes the Chemistry and Hematology Lab Results on record with [place] for the patient. Radiology Reports and Pathology Reports are provided separately, in subsequent sections. Lab Results This section contains the Chemistry/Hematology Results that were resulted 30 days before or 30 daysafter the date of the Encounter. Date/Time Source Result Type Result - Unit Interpretation Reference Range Comment May 21, 2024 06:59 AM [facility] BASIC METABOLIC PANEL+MG Specimen Type: PLASMA No comment entered. Ordering Provider: GOLDIE BENITEZ Report Released Date/Time: May 15, 2024 08:34 AM Reporting Lab: [facility] [phone] Performing Lab: [facility] [phone] CREATININE 0.9 mg/dL 0.7-1.2 UREA NITROGEN 18 mg/dL 8-26 GLUCOSE 126 mg/dL H 70-100 SODIUM 138 mmol/L 136-145 POTASSIUM 4.0 mmol/L 3.5-5.1 CHLORIDE 105 mmol/L 98-107 CO2 24 mmol/L 22-29 CALCIUM 9.8 mg/dL 8.4-10.2 MAGNESIUM 2.0 mg/dL 1.6-2.6 ANION GAP 9 mmol/L 5-15 .CREAT EGFR(CKD-EPI) >90 >60 May 04, 2024 08:36 AM [facility] BASIC METABOLIC PANEL+MG Specimen Type: PLASMA No comment entered. Ordering Provider: GOLDIE BENITEZ Report Released Date/Time: May 03, 2024 12:52 PM Reporting Lab: [facility] [phone] Performing Lab: [facility] [address] CREATININE 0.7 mg/dL 0.7-1.2 UREA NITROGEN 13 mg/dL 8-26 GLUCOSE 91 mg/dL 70-100 SODIUM 141 mmol/L 136-145 POTASSIUM 3.6 mmol/L 3.5-5.1 CHLORIDE 109 mmol/L H 98-107 CO2 25 mmol/L 22-29 CALCIUM 8.9 mg/dL 8.4-10.2 MAGNESIUM 2.0 mg/dL 1.6-2.6 ANION GAP 7 mmol/L 5-15 .CREAT EGFR(CKD-EPI) >90 >60 Apr 26, 2024 07:16 AM [facility] BASIC METABOLIC PANEL+MG Specimen Type: PLASMA No comment entered. Ordering Provider: JONO RANDOLPH Report Released Date/Time: Apr 25, 2024 02:50 PM Reporting Lab: [facility] [phone] Performing Lab: [facility] [address] CREATININE 0.7 mg/dL 0.7-1.2 UREA NITROGEN 15 mg/dL 8-26 GLUCOSE 106 mg/dL H 70-100 SODIUM 139 mmol/L 136-145 POTASSIUM 3.4 mmol/L L 3.5-5.1 CHLORIDE 105 mmol/L 98-107 CO2 25 mmol/L 22-29 CALCIUM 8.5 mg/dL 8.4-10.2 MAGNESIUM 2.2 mg/dL 1.6-2.6 ANION GAP 9 mmol/L 5-15 .CREAT EGFR(CKD-EPI) >90 >60 Apr 25, 2024 05:10 PM [facility] BASIC METABOLIC PANEL+MG Specimen Type: PLASMA No comment entered. Ordering Provider: GIOVANNI ADLER Report Released Date/Time: Apr 25, 2024 05:04 PM Reporting Lab: [facility] [phone] Performing Lab: [facility] [address] CREATININE 0.7 mg/dL 0.7-1.2 UREA NITROGEN 15 mg/dL 8-26 GLUCOSE 104 mg/dL H 70-100 SODIUM 139 mmol/L 136-145 POTASSIUM 3.2 mmol/L L 3.5-5.1 CHLORIDE 103 mmol/L 98-107 CO2 28 mmol/L 22-29 CALCIUM 8.5 mg/dL 8.4-10.2 MAGNESIUM 2.2 mg/dL 1.6-2.6 ANION GAP 8 mmol/L 5-15 .CREAT EGFR(CKD-EPI) >90 >60 Apr 25, 2024 07:46 AM [facility] BASIC METABOLIC PANEL+MG Specimen Type: PLASMA No comment entered. Ordering Provider: GIOVANNI ADLER Report Released Date/Time: Apr 24, 2024 12:37 PM Reporting Lab: [facility] [phone] Performing Lab: [facility] [address] CREATININE 0.7 mg/dL 0.7-1.2 UREA NITROGEN 14 mg/dL 8-26 GLUCOSE 127 mg/dL H 70-100 SODIUM 139 mmol/L 136-145 POTASSIUM 2.9 mmol/L L 3.5-5.1 CHLORIDE 101 mmol/L 98-107 CO2 29 mmol/L 22-29 CALCIUM 8.7 mg/dL 8.4-10.2 MAGNESIUM 2.3 mg/dL 1.6-2.6 ANION GAP 9 mmol/L 5-15 .CREAT EGFR(CKD-EPI) >90 >60 Apr 24, 2024 04:42 PM [facility] BASIC METABOLIC PANEL+MG Specimen Type: PLASMA No comment entered. Ordering Provider: GIOVANNI ADLER Report Released Date/Time: Apr 24, 2024 12:37 PM Reporting Lab: [facility] [phone] Performing Lab: [facility] [address] CREATININE 0.7 mg/dL 0.7-1.2 UREA NITROGEN 16 mg/dL 8-26 GLUCOSE 97 mg/dL 70-100 SODIUM 138 mmol/L 136-145 POTASSIUM 2.7 mmol/L L 3.5-5.1 CHLORIDE 99 mmol/L 98-107 CO2 30 mmol/L H 22-29 CALCIUM 8.4 mg/dL 8.4-10.2 MAGNESIUM 2.1 mg/dL 1.6-2.6 ANION GAP 9 mmol/L 5-15 .CREAT EGFR(CKD-EPI) >90 >60 Apr 24, 2024 07:36 AM [facility] BASIC METABOLIC PANEL+MG Specimen Type: PLASMA Comment: Critical Value Reported To: Cait Zamorano RN 8-27-24@[address] [place] [address]. Critical value report confirmed. Ordering Provider: AARON VICTOR Report Released Date/Time: Apr 23, 2024 05:30 PM Reporting Lab: [facility] [phone] Performing Lab: [facility] [address] CREATININE 0.7 mg/dL 0.7-1.2 UREA NITROGEN 16 mg/dL 8-26 GLUCOSE 105 mg/dL H 70-100 SODIUM 138 mmol/L 136-145 POTASSIUM 2.3 mmol/L LL 3.5-5.1 CHLORIDE 98 mmol/L 98-107 CO2 29 mmol/L 22-29 CALCIUM 8.3 mg/dL L 8.4-10.2 MAGNESIUM 2.2 mg/dL 1.6-2.6 ANION GAP 11 mmol/L 5-15 .CREAT EGFR(CKD-EPI) >90 >60 Apr 24, 2024 07:35 AM [facility] CBC & DIFF Specimen Type: BLOOD Comment: Automated Differential Performed Ordering Provider: AARON VICTOR Report Released Date/Time: Apr 23, 2024 05:30 PM Reporting Lab: [facility] [phone] Performing Lab: [facility] [address] WBC 10.49 10*3/uL 4.0-11.0 RBC 3.83 10*6/uL [...] 10*3/uL 0-0.1 Apr 23, 2024 01:20 PM [facility] LACTIC ACID Specimen Type: PLASMA No comment entered. Ordering Provider: AARON VICTOR Report Released Date/Time: Apr 23, 2024 12:05 PM Reporting Lab: [facility] [address] Performing Lab: [facility] [address] LACTIC ACID 1.5 mmol/L 0.5-2.2 Apr 23, 2024 01:20 PM [facility] PROTHROMBIN TIME/INR Specimen Type: PLASMA No comment entered. Ordering Provider: AARON VICTOR Report Released Date/Time: Apr 23, 2024 12:05 PM Reporting Lab: [facility] [address] Performing Lab: [facility] [address] .INR 1.2 H 0.8-1.1 .PT 14.5 s H 9.4-12.5 Apr 23, 2024 01:20 PM [facility] ACT PART THROMBO TIME Specimen Type: PLASMA No comment entered. Ordering Provider: AARON VICTOR Report Released Date/Time: Apr 23, 2024 12:05 PM Reporting Lab: [facility] [phone] Performing Lab: [facility] [address] APTT 29.3 s 25.1-36.5 Apr 23, 2024 01:20 PM [facility] CBC & DIFF Specimen Type: BLOOD Comment: Automated Differential Performed Ordering Provider: AARON VICTOR Report Released Date/Time: Apr 23, 2024 12:05 PM Reporting Lab: [facility] [address] Performing Lab: [facility] [address] WBC 12.50 10*3/uL H 4.0-11.0 RBC 4.07 [...] 10*3/uL 0-0.1 Apr 23, 2024 01:20 PM [facility] COMPREHENSIVE METABOLIC PANEL+MG Specimen Type: PLASMA No comment entered. Ordering Provider: AARON VICTOR Report Released Date/Time: Apr 23, 2024 12:05 PM Reporting Lab: [facility] [address] Performing Lab: [facility] [address] CREATININE 0.7 mg/dL 0.7-1.2 UREA NITROGEN 19 [...] >90 >60 Apr 21, 2024 07:28 AM [facility] URINALYSIS Specimen Type: URINE No comment entered. Ordering Provider: ANANDA HUGGINS Report Released Date/Time: Apr 21, 2024 07:37 AM Reporting Lab: [facility] [phone] Performing Lab: [facility] [address] URINE COLOR COLORLESS SPECIFIC GRAVITY 1.009 1.003-1.03 [...] Source Apr 24, 2024 10:48 PM 5 [facility] Apr 24, 2024 06:35 PM 5 [facility] Apr 24, 2024 04:00 PM 59 147/71 14 0 [facility] Apr 24, 2024 12:15 PM 0 [facility] Apr 24, 2024 10:12 AM 4 [facility] Social History: Smoking Status (Most current) and Tobacco Use (All prior to encounter date) This section includes the most current, and the historical, smoking and tobacco- related health factors from the [facility] where the Encounter took place. Current Smoking Status This section includes the most current smoking, or tobacco-related health factor, from the [facility] where the Encounter took place. Date/Time Current Smoking Status Comment Juan Manuel putnam May 06, 2023 11:30 AM VA-TOBACCO FORMER USER [facility] Tobacco Use History This section includes a history of the smoking, or tobacco-related health factors, that were collected on or before the date of the Encounter. The data comes from the [place] facility where the Encounter took place. Date/Time [...] ALL of a patient's completed or amended [place] Advance and Rescinded Directives. The entries below indicate that a directive exists for the patient, but an actual copy is not included with this document. The data comes from all [facility]. Date Advance Directives Provider Source Mar 23, 2016 CLINICAL WARNING GOLDIETIM HINDS [facility] Radiology Reports: +/- 30 [...] the Encounter. The data comes from all [place] treatment facilities. Date/Time Radiology Report Provider Source May 11, 2024 12:39 PM IR FISTULOGRAM / S INOGRAM (P): FLACA WEAVER [id number] -1950 M Exm Date: MAY 11, 2024@12:39 Req Phys: PALMIRA POWELL Loc: [facility] C/R FOLLOW-UP [facility]INIC (Req' Img Loc: INTERVENTIONAL RADIOLOGY Service: [place] [address] (Case [id number] COMPLETE) IR INJECTION FOR SINOGRAM DIAGNOS(ANI Detailed) CPT:67204 Contrast Media : Non-ionic Iodinated Reason for Study: s/p drain placement for diverticular abscess- assess for drain (Case [id number] COMPLETE) IR FISTULOGRAM OR SINOGRAM (ANI Detailed) CPT:85942 Contrast Media : unspecified contrast media (Case [id number] COMPLETE) IR DRAINAGE CATHETER SUPPLY (ANI Detailed) CPT:C1729 Clinical History: IS NOT under investigation for COVID-19 or is COVID-19 negative s/p drain placement for diverticular abscess- assess for drain removal Contact number for responsible provider who can be reached for any questions or notifications of critical findings: [phone] Palmira Powell MD LAST CREATININE 0.7 (05/04/24) Report Status: Verified Date Reported: MAY 11, 2024 Date Verified: MAY 11, 2024 Senior Packaging Engineer E-Sig:/ES/AMINTA ESCALONA MD Report: PROCEDURES Abdominal drain [...] Interpreting Staff: AMINTA ESCALONA MD, INTERVENTIONAL RADIOLOGIST (Senior Packaging Engineer) /AMINTA VELAZCO [facility] May 11, 2024 11:[address] (AP) ABDOMEN/PE LVIS (P): FLACA WEAVER [id number] -1950 M Exm Date: MAY 11, 2024@11:40 Req Phys: PALMIRA POWELL Loc: [facility] C/R FOLLOW-UP CLINIC (Req' Img Loc: CT IMAGING Service: [place] [address] (Case [id number] COMPLETE) CT (AP) ABDOMEN/PELVIS W CONTRAST(CT Detailed) CPT:49514 Contrast Media : Non-ionic Iodinated Reason for [...] any questions or notifications of critical findings: [phone] Palmira Powell MD LAST 3: Collection DT [...] PLASMA .CREAT EGFR(CKD-E >90 Ref: >=60 Allergies: ([place] only) TERAZOSIN (Mar 13, 2015) Report Status: Verified Date Reported: MAY 11, 2024 Date Verified: MAY 11, 2024 Senior Packaging Engineer E-Sig:/ES/LISA PENDLETON MD Report: CT abdomen and [...] Primary Interpreting Staff: LISA PENDLETON MD, RADIOLOGIST (Senior Packaging Engineer) /JRT LISA PENDLETON [facility] Apr 24, 2024 02:13 PM ABSCESS DRAIN PLAC EMENT PERITONEAL (P): FLACA WEAVER [id number] -1950 M Exm Date: APR 24, 2024@14:13 Req Phys: TAURUS WOOD Loc: 3K04-24-2024@16:07 Img Loc: INTERVENTIONAL RADIOLOGY Service: PRIMARY CARE - [place] [address] (Case [id number] COMPLETE) IR PERITONEAL/RETROPERITONEAL PER(ANI Detailed) CPT:47452 Reason for Study: diverticular abscess Clinical History: [place] IS NOT under investigation for COVID-19 or is COVID-19 negative 73yo M with hx of recurrent diverticulitis, transferred from OSH 04/[address] 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 Palmira Powell MD LAST CREATININE 0.7 (04/23/24) Report Status: Verified Date Reported: APR 24, 2024 Date Verified: APR 24, 2024 Senior Packaging Engineer E-Sig:/ES/SADIA DEE MD Report: PROCEDURES: Placement [...] anesthesia. Using real-time CT fluoroscopy, a 5 Somali Yueh catheter was advanced into the collection in the left lower quadrant. A wire was coiled in the collection. The tract into the collection was dilated to accommodate the 12 Somali locking pigtail drainage catheter. The catheter was secured to the skin with monofilament suture and connected to JUAN bulb suction. Impression: Successful placement of a 12 Somali locking pigtail drainage catheter in the left lower quadrant abscess. This catheter is connected to JUAN bulb suction with flushes, as ordered. I, SADIA DEE, have reviewed the images and report. Primary Interpreting Staff: SADIA DEE MD, RADIOLOGIST (Senior Packaging Engineer) Primary Interpreting Resident: JEFFREY FLOWER MD, TEACHER'S ASSISTANT /SADIA SNYDER [facility] Apr 24, 2024 02:[address] NEEDLE PLACEMEN T (P): FLACA WEAVER [id number] -1950 M Exm Date: APR 24, 2024@14:11 Req Phys: TAURUS WOOD Loc: 04-24-2024@16:07 Im Loc: CT IMAGING Service: PRIMARY CARE - [place] [address] (Case [id number] COMPLETE) CT SCAN FOR NEEDLE PLACEMENT (CT Detailed) CPT:17753 Reason for Study: diverticular abscess Clinical History: Report Status: Verified Date Reported: APR 24, 2024 Date Verified: APR 24, 2024 Senior Packaging Engineer E-Sig:/ES/SADIA DEE MD Report: PROCEDURES: Placement [...] anesthesia. Using real-time CT fluoroscopy, a 5 Somali Yueh catheter was advanced into the collection in the left lower quadrant. A wire was coiled in the collection. The tract into the collection was dilated to accommodate the 12 Somali locking pigtail drainage catheter. The catheter was secured to the skin with monofilament suture and connected to JUAN bulb suction. Impression: Successful placement of a 12 Somali locking pigtail drainage catheter in the left lower quadrant abscess. This catheter is connected to JUAN bulb suction with flushes, as ordered. I, SADIA DEE, have reviewed the images and report. Primary Interpreting Staff: SADIA DEE MD, RADIOLOGIST (Senior Packaging Engineer) Primary Interpreting Resident: JEFFREY FLOWER MD, TEACHER'S ASSISTANT /SADIA SNYDER [facility] Apr 23, 2024 06:[address] ABDOMEN/ PELVIS: FLACA WEAVER [id number] -1950 M Ex Date: APR 23, 2024@06:36 Req Phys: MCKAY VICTOR Loc: 04-24-2024@10:25 Img Loc: OUTSOURCE CT Service: Unknown (Case [id number] COMPLETE) NON [facility] CT ABDOMEN/PELVIS (CT Detailed) CPT:77275 Reason for Study: OUTSIDE STUDY Clinical History: OUTSIDE STUDY Report Status: Electronically Filed Date Reported: APR 24, 2024 Report: This is an outside Imaging study and/or report imported for continuity of patient care. This Imaging study and/or report was not reviewed or verified by a [place] Radiologist. Impression: This is an outside Imaging study and/or report imported for continuity of patient care. This Imaging study and/or report was not reviewed or verified by a [place] Radiologist. Primary Diagnostic Code: VERIFIED BY: / *ELECTRONICALLY FILED* [facility] Pathology Reports: +/- 30 days of [...] the Encounter. The data comes from all [place] treatment facilities. Date/Time Pathology Report Provider Source Apr 21, 2024 07:28 AM LR MICROBIOLOGY RE PORT: Reporting Lab: [facility] [CLIA# [id number]] [place] [address] Accession [UID]: [id number] [[id number]] Received: Apr 21, 2024@08:16 Collection sample: URINE Collection date: Apr 21, 2024 07:28 Provider: ANANDA HUGGINS Comment on specimen: RECEIVED IN STERILE CUP Test(s) ordered: CULTURE & SUSCEPTIBILITY...... completed: Apr 22, 2024 * BACTERIOLOGY FINAL REPORT => Apr 22, 2024 08:38 TECH CODE: [id number] CULTURE RESULTS: NO GROWTH 24 HOURS Bacteriology Remark(s): THIS REPORT IS FINAL =--=--=--=--=--=--=--=--=--=--=--=- -=--=--=--=--=--=--=--=--=--=--=--= --=--=-- Performing Laboratory: Bacteriology Report Performed By: [facility] [CLIA# [id number]] [place] [address] [facility]
--- OUTSIDE RECORDS SUMMARY | 2024-07-16 07:09 | XMS_ITS | Encounter Summary ---
Author Name [facility] [place] [facility] [place] Address [address] [place] [address] Care Team Providers Care Staff Engineer Name Role Phone JATINDER BENITEZ Primary [...] PART A Sep 29, 2016 PART A [id number] [phone] JUDY WEAVER PATIENT Selected Encounter This section includes the information on record at [place] for the Encounter. Date/Time Encounter Type Encounter Description Reason Provider Source Apr 23, 2024 01:00 AM Outpatient Encounter ADMIN PAT ACTIVTIES ([employer]) SYSTEM,[facility] I[facility] Encounter Template Text not used by [place] Plan of Treatment: Future Appointments (+ 6 months) and Future Tests (+/- 45 days) The Plan of Treatment section includes future care activities for the patient from all [place] treatmentfacilities. This section includes future appointments and [...] 27, 2024 02:30 PM [facility] May 02, 2024 10:00 AM AMBULATORY - SURGERY [facility] May 04, 2024 09:00 AM [facility] N[facility] May 07, 2024 08:45 AM AMBULATORY - MEDICINE [facility] May 08, 2024 02:00 PM [facility] NONE [facility] May 09, 2024 07:30 AM AMBULATORY - SURGERY [facility] May 11, 2024 01:00 PM AMBULATORY - NONE [facility] May 11, 2024 03:30 PM [facility] May 15, 2024 08:30 AM AMBULATORY - MEDICINE [facility] May 16, 2024 07:45 AM AMBULATORY - SURGERY [facility] May 22, 2024 07:30 AM AMBULATORY - NONE [facility] May 22, 2024 05:30 PM [facility] May 25, 2024 08:22 AM [facility] May 25, 2024 09:00 AM [facility] May 28, 2024 08:15 AM AMBULATORY - SURGERY [facility] Jun 04, 2024 11:30 AM [facility] Jun 08, 2024 11:00 AM AMBULATORY - SURGERY [facility] Jun 08, 2024 12:45 PM [facility] Jun 08, 2024 01:15 PM AMBULATORY - MEDICINE [facility] Jun 08, 2024 01:45 PM AMBULATORY - SURGERY [facility] Active, Pending, and Scheduled Orders This section includes a listing of several types of active, pending, and scheduled orders, including clinic medications orders, diagnostic test orders, procedure orders and consult orders; where the start date of the order is 45 days before the date of the Encounter or 45 days after the date of theEncounter. The data comes from all [facility]. Test Date/Time Test Type Test Details [...] LAB BLOOD SP [facility] Lab Results: +/- 30 days of the encounter This section includes the Chemistry and Hematology Lab Results on record with [place] for the patient. Radiology Reports and Pathology [...] 2024 08:34 AM Reporting Lab: [facility] [phone] Performing Lab: [facility] [address] CREATININE 0.9 mg/dL 0.7-1.2 UREA NITROGEN 18 [...] 2024 12:52 PM Reporting Lab: [facility] [address] Performing Lab: [facility] [address] CREATININE 0.7 mg/dL 0.7-1.2 UREA NITROGEN 13 [...] 2024 02:50 PM Reporting Lab: [facility] [address] Performing Lab: [facility] [address] CREATININE 0.7 mg/dL 0.7-1.2 UREA NITROGEN 15 [...] 2024 05:04 PM Reporting Lab: [facility] [address] Performing Lab: [facility] [address] CREATININE 0.7 mg/dL 0.7-1.2 UREA NITROGEN 15 [...] 2024 12:37 PM Reporting Lab: [facility] [address] Performing Lab: [facility] [address] CREATININE 0.7 mg/dL 0.7-1.2 UREA NITROGEN 14 [...] 2024 12:37 PM Reporting Lab: [facility] [address] Performing Lab: [facility] [address] CREATININE 0.7 mg/dL 0.7-1.2 UREA NITROGEN 16 [...] Critical Value Reported To: Cait Zamorano RN 04-24-24@[address] [place] [address]. Critical value report confirmed. Ordering Provider: AARON VICTOR Report Released Date/Time: Apr 23, 2024 05:30 PM Reporting Lab: [facility] [address] Performing Lab: [facility] [address] CREATININE 0.7 mg/dL 0.7-1.2 UREA NITROGEN 16 [...] 2024 05:30 PM Reporting Lab: [facility] [address] Performing Lab: [facility] [address] WBC 10.49 10*3/uL 4.0-11.0 RBC 3.83 10*6/uL [...] 2024 12:05 PM Reporting Lab: [facility] [address] Performing Lab: [facility] [address] LACTIC ACID 1.5 mmol/L 0.5-2.2 Apr 23, 2024 01:20 PM [facility] PROTHROMBIN TIME/INR Specimen Type: PLASMA No comment entered. Ordering Provider: AARON VICTOR Report Released Date/Time: Apr 23, 2024 12:05 PM Reporting Lab: [facility] [address] Performing Lab: [facility] [address] .INR 1.2 H 0.8-1.1 .PT 14.5 s H 9.4-12.5 Apr 23, 2024 01:20 PM [facility] ACT PART THROMBO TIME Specimen Type: PLASMA No comment entered. Ordering Provider: AARON VICTOR Report Released Date/Time: Apr 23, 2024 12:05 PM Reporting Lab: [facility] [address] Performing Lab: [facility] [address] APTT 29.3 s 25.1-36.5 Apr 23, 2024 01:20 PM [facility] COMPREHENSIVE METABOLIC PANEL+MG Specimen Type: PLASMA No comment entered. Ordering Provider: AARON VICTOR Report Released Date/Time: Apr 23, 2024 12:05 PM Reporting Lab: [facility] [address] Performing Lab: [facility] [address] CREATININE 0.7 mg/dL 0.7-1.2 UREA NITROGEN 19 [...] 2024 12:05 PM Reporting Lab: [facility] [address] Performing Lab: [facility] [address] WBC 12.50 10*3/uL H 4.0-11.0 RBC 4.07 [...] AM Reporting Lab: [facility] [address] Performing Lab: [facility] [address] URINE COLOR COLORLESS SPECIFIC GRAVITY 1.009 1.003-1.03 [...] Apr 23, 2024 01:59 PM 211.1 30 [facility] Social History: Smoking Status (Most current) and Tobacco Use (All prior to encounter date) This section includes the most current, and the historical, smoking and tobacco- related health factors from the [place] facility where the Encounter took place. Current Smoking Status This section includes the most current smoking, or tobacco-related health factor, from the [place] facility where the Encounter took place. Date/Time Current Smoking Status Comment Juan Manuel putnam May 06, 2023 11:30 AM VA-TOBACCO FORMER USER [facility] Tobacco Use History This section includes a history of the smoking, or tobacco-related health factors, that were collected on or before the date of the Encounter. The data comes from the [place] facility where the Encounter took place. Date/Time [...] ALL of a patient's completed or amended [place] Advance and Rescinded Directives. The entries below indicate that a directive exists for the patient, but an actual copy is not included with this document. The data comes from all [facility]. Date Advance Directives Provider Source [...] the Encounter. The data comes from all [place] treatment facilities. Date/Time Radiology Report Provider Source May 11, 2024 12:39 PM IR FISTULOGRAM / S INOGRAM (P): FLACA WEAVER [id number] -1950 M Exm Date: MAY 11, 2024@12:39 Req Phys: PALMIRA POWELL Loc: [facility] C/R FOLLOW-UP CLINIC (Req' Img Loc: INTERVENTIONAL RADIOLOGY Service: [place] [address] (Case [id number] COMPLETE) IR INJECTION FOR SINOGRAM DIAGNOS(ANI Detailed) CPT:17149 Contrast Media : Non-ionic Iodinated Reason for Study: s/p drain placement for diverticular abscess- assess for drain (Case [id number] COMPLETE) IR FISTULOGRAM OR SINOGRAM (ANI Detailed) CPT:47932 Contrast Media : unspecified contrast media (Case [id number] COMPLETE) IR DRAINAGE CATHETER SUPPLY (ANI Detailed) CPT:C1729 Clinical History: IS NOT under investigation for COVID-19 or is COVID-19 negative s/p drain placement for diverticular abscess- assess for drain removal Contact number for responsible provider who can be reached for any questions or notifications of critical findings: [phone] Palmira Powell MD LAST CREATININE 0.7 (05/04/24) Report Status: Verified Date Reported: MAY 11, 2024 Date Verified: MAY 11, [address] [employer] E-Sig:/ES/AMINTA ESCALONA MD Report: PROCEDURES Abdominal drain [...] Interpreting Staff: AMINTA ESCALONA MD, INTERVENTIONAL RADIOLOGIST ([address] [employer]) /AMINTA VELAZCO [facility] May 11, 2024 11:[address] (AP) ABDOMEN/PE LVIS (P): MEGFLACA YAMIL [id number] -1950 M Exm Date: MAY 11, 2024@11:40 Req Phys: PALMIRA POWELL Loc: [facility] C/R FOLLOW-UP CLINIC (Req' Img Loc: CT IMAGING Service: [place] [address] (Case [id number] COMPLETE) CT (AP) ABDOMEN/PELVIS W CONTRAST(CT Detailed) CPT:05825 Contrast Media : Non-ionic Iodinated Reason for [...] any questions or notifications of critical findings: [phone] Palmira Powell MD LAST 3: Collection DT [...] PLASMA .CREAT EGFR(CKD-E >90 Ref: >=60 Allergies: ([place] only) TERAZOSIN (Mar 13, 2015) Report Status: Verified Date Reported: MAY 11, 2024 Date Verified: MAY 11, [address] [employer] E-Sig:/ES/LISA PENDLETON MD Report: CT abdomen and [...] Primary Interpreting Staff: LISA PENDLETON MD, RADIOLOGIST ([address] [employer]) /JRT LISA PENDLETON [facility] Apr 24, 2024 02:13 PM ABSCESS DRAIN PLAC EMENT PERITONEAL (P): FLACA WEAVER [id number] -1950 M Exm Date: APR 24, 2024@14:13 Req Phys: TAURUS WOOD Loc: 3KS/04-24-2024@16:07 Img Loc: INTERVENTIONAL RADIOLOGY Service: PRIMARY [place] [address] (Case [id number] COMPLETE) IR PERITONEAL/RETROPERITONEAL PER(ANI Detailed) CPT:86932 Reason for Study: diverticular abscess Clinical History: [facility] IS NOT under investigation for COVID-19 or is COVID-19 negative 73yo M with hx of recurrent diverticulitis, transferred from OSH 04/[address] 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 Palmira Powell MD LAST CREATININE 0.7 (04/23/24) Report Status: Verified Date Reported: APR 24, 2024 Date Verified: APR 24, [address] [employer] E-Sig:/ES/SADIA DEE MD Report: PROCEDURES: Placement of [...] Primary Interpreting Staff: SADIA DEE MD, RADIOLOGIST ([address] [employer]) Primary Interpreting Resident: JEFFREY FLOWER MD, FLOWER GROWER /SADIA SNYDER [facility] Apr 24, 2024 02:[address] NEEDLE PLACEMEN T (P): MEGFLACA LOBO [id number] -1950 M Exm Date: APR 24, 2024@14:11 Req Phys: TAURUS WOOD Amanda Loc: 3K04-24-2024@16:07 Img Loc: CT IMAGING Service: PRIMARY [place] [address] (Case [id number] COMPLETE) CT SCAN FOR NEEDLE PLACEMENT (CT Detailed) CPT:98487 Reason for Study: diverticular abscess Clinical History: Report Status: Verified Date Reported: APR 24, 2024 Date Verified: APR 24, [address] [employer] E-Sig:/ES/SADIA DEE MD Report: PROCEDURES: Placement of [...] Primary Interpreting Staff: SADIA DEE MD, RADIOLOGIST ([address] [employer]) Primary Interpreting Resident: JEFFREY FLOWER MD, FLOWER GROWER /SADIA SNYDER [facility] Apr 23, 2024 06:[address] [place] [address] ABDOMEN/ PELVIS: FLACA WEAVER [id number] -1950 M Exm Date: APR 23, 2024@06:36 Req Phys: MCKAY VICTOR [facility] Loc: 04-24-2024@10:25 Im Loc: OUTSOURCE CT Service: Unknown (Case [id number] COMPLETE) NON [place] CT ABDOMEN/PELVIS (CT Detailed) CPT:52714 Reason for Study: OUTSIDE STUDY Clinical History: OUTSIDE STUDY Report Status: Electronically Filed Date Reported: APR 24, 2024 Report: This is an outside Imaging study and/or report imported for continuity of patient care. This Imaging study and/or report was not reviewed or verified by a [place] Radiologist. Impression: This is an outside Imaging study and/or report imported for continuity of patient care. This Imaging study and/or report was not reviewed or verified by a [place] Radiologist. Primary Diagnostic Code: VERIFIED BY: / [...] the Encounter. The data comes from all [place] treatment facilities. Date/Time Pathology Report Provider Source Apr 21, 2024 07:28 AM LR MICROBIOLOGY RE PORT: Reporting Lab: [facility] [CLIA# [id number]] [place] [address] Accession [UID]: [id number] [[id number]] Received: Apr 21, 2024@08:16 Collection sample: URINE Collection date: Apr 21, 2024 07:28 Provider: ANANDA HUGGINS Comment on specimen: RECEIVED IN STERILE CUP Test(s) ordered: CULTURE & SUSCEPTIBILITY...... completed: Apr 22, 2024 * BACTERIOLOGY FINAL REPORT => Apr 22, 2024 08:38 TECH CODE: [id number] CULTURE RESULTS: NO GROWTH 24 HOURS Bacteriology Remark(s): THIS REPORT IS FINAL =--=--=--=--=--=--=--=--=--=--=--=- -=--=--=--=--=--=--=--=--=--=--=--= --=--=-- Performing Laboratory: Bacteriology Report Performed By: [facility] [CLIA# [id number]] [place] [address] [facility] Encounter Notes: All associated encounter notes This section contains the clinical notes associated to the Encounter. Date/Time Encounter Note(s) Provider Source Apr 23, 2024 01:00 AM CRITICAL CARE UNIT NOTE: LOCAL TITLE: ICCA INPATIENT FLOWSHEET STANDARD TITLE: CRITICAL CARE UNIT NOTE DATE OF NOTE: APR 23, 2024@01:00 ENTRY DATE: APR 24, 2024@14:34:47 AUTHOR: SYSTEM,DUDLEY-CHRISTOPHER EXP COSIGNER: URGENCY: STATUS: COMPLETED This is a place aranda only. Please see VISTA Imaging to view document. /es/ [employer] SYSTEM ICU DOCUMENT IMPORT Signed: 04/24/2024 14:34 SYSTEM,[employer] [facility] Apr 23, 2024 01:00 AM CRITICAL CARE UNIT NOTE: LOCAL TITLE: [facility]A RESPIRATORY THERAPY FLOWSHEET STANDARD TITLE: CRITICAL CARE UNIT NOTE DATE OF NOTE: APR 23, 2024@01:00 ENTRY DATE: APR 24, 2024@15:05:25 AUTHOR: PETERSONIMVU EXP COSIGNER: URGENCY: STATUS: COMPLETED This is a place aranda only. Please see 1000memories to view document. /es/ [facility] SYSTEM ICU DOCUMENT IMPORT Signed: 04/24/2024 15:05 [employer] [facility]
--- OUTSIDE RECORDS SUMMARY | 2024-07-16 07:09 | XMS_ITS | Encounter Summary ---
Author Name [facility] Organization [facility] Address [address] [place] [address] Care Team Providers Care Well Drill Operator Helper Cable Tool Name Role Phone JATINDER BENITEZ Primary Care [...] PART A Sep 29, 2016 PART A [id number] [phone] JUDY WEAVER PATIENT Selected Encounter This section includes the information on record at [place] for the Encounter. Date/Time Encounter Type Encounter Description Reason Pro vider Source Apr 23, 2024 05:08 PM Inpatient Visit CARDIAC ECHO IHE Encounter Template Text not used by [facility] Plan of Treatment: Future Appointments (+ 6 months) and Future Tests (+/- 45 days) The Plan of Treatment section includes future care activities for the patient from all [place] treatmentfacilities. This section includes future appointments and future orders which are active, pending or scheduled. Future Appointments This section includes appointments that were scheduled to occur 6 months from the date of the Encounter, up to a maximum of 20 appointments. The data comes from all [place] treatment facilities. Appointment Date/Time Appointment Type Appointme nt Facility Name Apr 27, 2024 02:30 PM AM[place]ORY [place]ONE [place] [facility] May 02, 2024 10:00 AM AM[place] [facility] May 04, 2024 09:00 AM AM[place]ORY - [place]ONE [place] [facility] May 07, 2024 08:45 AM [place]IC[place] [facility] May 08, 2024 02:00 PM AM[place]ORY - NONE [place] [facility] May 09, 2024 07:30 AM [place] [facility] May 11, 2024 01:00 PM AM[place]ORY [place]ONE [place] [facility] May 11, 2024 03:30 PM [place]ORY [place]ONE [place] [facility] May 15, 2024 08:30 AM [place] [facility] May 16, 2024 07:45 AM [place] [facility] May 22, 2024 07:30 AM [place]ORY [place]ONE [place] [facility] May 22, 2024 05:30 PM [place]ORY [place]ONE [place] [facility] May 25, 2024 08:22 AM [place]ORY [place]ONE [place] [facility] May 25, 2024 09:00 AM AM[place]ORY [place]ONE [place] [facility] May 28, 2024 08:15 AM [place] [facility] Jun 04, 2024 11:30 AM AM[place]ORY [place]ONE [place] [facility] Jun 08, 2024 11:00 AM [place] [facility] Jun 08, 2024 12:45 PM AM[place]ORY [place]ONE [place] [facility] Jun 08, 2024 01:15 PM [place] [facility] Jun 08, 2024 01:45 PM [place] [facility] Active, Pending, and Scheduled Orders This section includes a listing of several types of active, pending, and scheduled orders, including clinic medications orders, diagnostic test orders, procedure orders and consult orders; where the start date of the order is 45 days before the date of the Encounter or 45 days after the date of theEncounter. The data comes from all [place] treatment facilities. Test Date/Time Test Type Test Details Facility Name Apr 26, 2024 10:10 AM Laboratory - Microbiology Order CULTURE & SUSCEPTIBILITY WOUND OTHER WC ONCE ~For Test: CULTURE & SUSCEPTIBILITY ~Culture sample from JUAN drain output [facility] Apr 26, 2024 10:10 AM Laboratory - Microbiology Order GRAM STAIN WOUND OTHER WC ONCE ~For Test: GRAM STAIN ~JUAN drain culture/gram stain [facility] May 28, 2024 12:00 AM Laboratory - Blood Bank Order TYPE & SCREEN - LAB BLOOD SP [facility] Lab Results: +/- 30 days of the encounter This section includes the Chemistry and Hematology Lab Results on record with [place] for the patient. Radiology Reports and Pathology Reports are provided separately, in subsequent sections. Lab Results This section contains the Chemistry/Hematology Results that were resulted 30 days before or 30 daysafter the date of the Encounter. Date/Time Source Result Type Result - Unit Interpretation Reference Range Comment May 21, 2024 06:59 AM [facility] BASIC METABOLIC PANEL+MG Specimen Type: PLASMA No comment entered. Ordering Provider: GOLDIE BENITEZ Report Released Date/Time: May 15, 2024 08:34 AM Reporting Lab: [facility] [phone] Performing Lab: [facility] [phone] CREATININE 0.9 mg/dL 0.7-1.2 UREA NITROGEN 18 mg/dL 8-26 GLUCOSE 126 mg/dL H 70-100 SODIUM 138 mmol/L 136-145 POTASSIUM 4.0 mmol/L 3.5-5.1 CHLORIDE 105 mmol/L 98-107 CO2 24 mmol/L 22-29 CALCIUM 9.8 mg/dL 8.4-10.2 MAGNESIUM 2.0 mg/dL 1.6-2.6 ANION GAP 9 mmol/L 5-15 .CREAT EGFR(CKD-EPI) >90 >60 May 04, 2024 08:36 AM [facility] BASIC METABOLIC PANEL+MG Specimen Type: PLASMA No comment entered. Ordering Provider: GOLDIE BENITEZ Report Released Date/Time: May 03, 2024 12:52 PM Reporting Lab: [facility] [phone] Performing Lab: [facility] [phone] CREATININE 0.7 mg/dL 0.7-1.2 UREA NITROGEN 13 mg/dL 8-26 GLUCOSE 91 mg/dL 70-100 SODIUM 141 mmol/L 136-145 POTASSIUM 3.6 mmol/L 3.5-5.1 CHLORIDE 109 mmol/L H 98-107 CO2 25 mmol/L 22-29 CALCIUM 8.9 mg/dL 8.4-10.2 MAGNESIUM 2.0 mg/dL 1.6-2.6 ANION GAP 7 mmol/L 5-15 .CREAT EGFR(CKD-EPI) >90 >60 Apr 26, 2024 07:16 AM [facility] BASIC METABOLIC PANEL+MG Specimen Type: PLASMA No comment entered. Ordering Provider: JONO RANDOLPH Report Released Date/Time: Apr 25, 2024 02:50 PM Reporting Lab: [facility] [phone] Performing Lab: [facility] [phone] CREATININE 0.7 mg/dL 0.7-1.2 UREA NITROGEN 15 mg/dL 8-26 GLUCOSE 106 mg/dL H 70-100 SODIUM 139 mmol/L 136-145 POTASSIUM 3.4 mmol/L L 3.5-5.1 CHLORIDE 105 mmol/L 98-107 CO2 25 mmol/L 22-29 CALCIUM 8.5 mg/dL 8.4-10.2 MAGNESIUM 2.2 mg/dL 1.6-2.6 ANION GAP 9 mmol/L 5-15 .CREAT EGFR(CKD-EPI) >90 >60 Apr 25, 2024 05:10 PM [facility] BASIC METABOLIC PANEL+MG Specimen Type: PLASMA No comment entered. Ordering Provider: GIOVANNI ADLER Report Released Date/Time: Apr 25, 2024 05:04 PM Reporting Lab: [facility] [phone] Performing Lab: [facility] [phone] CREATININE 0.7 mg/dL 0.7-1.2 UREA NITROGEN 15 mg/dL 8-26 GLUCOSE 104 mg/dL H 70-100 SODIUM 139 mmol/L 136-145 POTASSIUM 3.2 mmol/L L 3.5-5.1 CHLORIDE 103 mmol/L 98-107 CO2 28 mmol/L 22-29 CALCIUM 8.5 mg/dL 8.4-10.2 MAGNESIUM 2.2 mg/dL 1.6-2.6 ANION GAP 8 mmol/L 5-15 .CREAT EGFR(CKD-EPI) >90 >60 Apr 25, 2024 07:46 AM [facility] BASIC METABOLIC PANEL+MG Specimen Type: PLASMA No comment entered. Ordering Provider: GIOVANNI ADLER Report Released Date/Time: Apr 24, 2024 12:37 PM Reporting Lab: [facility] [phone] Performing Lab: [facility] [phone] CREATININE 0.7 mg/dL 0.7-1.2 UREA NITROGEN 14 mg/dL 8-26 GLUCOSE 127 mg/dL H 70-100 SODIUM 139 mmol/L 136-145 POTASSIUM 2.9 mmol/L L 3.5-5.1 CHLORIDE 101 mmol/L 98-107 CO2 29 mmol/L 22-29 CALCIUM 8.7 mg/dL 8.4-10.2 MAGNESIUM 2.3 mg/dL 1.6-2.6 ANION GAP 9 mmol/L 5-15 .CREAT EGFR(CKD-EPI) >90 >60 Apr 24, 2024 04:42 PM [facility] BASIC METABOLIC PANEL+MG Specimen Type: PLASMA No comment entered. Ordering Provider: GIOVANNI ADLER Report Released Date/Time: Apr 24, 2024 12:37 PM Reporting Lab: [facility] [phone] Performing Lab: [facility] [phone] CREATININE 0.7 mg/dL 0.7-1.2 UREA NITROGEN 16 mg/dL 8-26 GLUCOSE 97 mg/dL 70-100 SODIUM 138 mmol/L 136-145 POTASSIUM 2.7 mmol/L L 3.5-5.1 CHLORIDE 99 mmol/L 98-107 CO2 30 mmol/L H 22-29 CALCIUM 8.4 mg/dL 8.4-10.2 MAGNESIUM 2.1 mg/dL 1.6-2.6 ANION GAP 9 mmol/L 5-15 .CREAT EGFR(CKD-EPI) >90 >60 Apr 24, 2024 07:36 AM [facility] BASIC METABOLIC PANEL+MG Specimen Type: PLASMA Comment: Critical Value Reported To: Cait Zamorano RN 8-27-24@0832 [facility]. Critical value report confirmed. Ordering Provider: AARON VICTOR Report Released Date/Time: Apr 23, 2024 05:30 PM Reporting Lab: [facility] [phone] Performing Lab: [facility] [phone] CREATININE 0.7 mg/dL 0.7-1.2 UREA NITROGEN 16 mg/dL 8-26 GLUCOSE 105 mg/dL H 70-100 SODIUM 138 mmol/L 136-145 POTASSIUM 2.3 mmol/L LL 3.5-5.1 CHLORIDE 98 mmol/L 98-107 CO2 29 mmol/L 22-29 CALCIUM 8.3 mg/dL L 8.4-10.2 MAGNESIUM 2.2 mg/dL 1.6-2.6 ANION GAP 11 mmol/L 5-15 .CREAT EGFR(CKD-EPI) >90 >60 Apr 24, 2024 07:35 AM [facility] CBC & DIFF Specimen Type: BLOOD Comment: Automated Differential Performed Ordering Provider: AARON VICTOR Report Released Date/Time: Apr 23, 2024 05:30 PM Reporting Lab: [facility] [phone] Performing Lab: [facility] [phone] WBC 10.49 10*3/uL 4.0-11.0 RBC 3.83 10*6/uL [...] 10*3/uL 0-0.1 Apr 23, 2024 01:20 PM [facility] LACTIC ACID Specimen Type: PLASMA No comment entered. Ordering Provider: AARON VICTOR Report Released Date/Time: Apr 23, 2024 12:05 PM Reporting Lab: [facility] [phone] Performing Lab: [facility] [address] LACTIC ACID 1.5 mmol/L 0.5-2.2 Apr 23, 2024 01:20 PM [facility] PROTHROMBIN TIME/INR Specimen Type: PLASMA No comment entered. Ordering Provider: AARON VICTOR Report Released Date/Time: Apr 23, 2024 12:05 PM Reporting Lab: [facility] [address] Performing Lab: [facility] [address] .INR 1.2 H 0.8-1.1 .PT 14.5 s H 9.4-12.5 Apr 23, 2024 01:20 PM [facility] ACT PART THROMBO TIME Specimen Type: PLASMA No comment entered. Ordering Provider: AARON VICTOR Report Released Date/Time: Apr 23, 2024 12:05 PM Reporting Lab: [facility] [phone] Performing Lab: [facility] [address] APTT 29.3 s 25.1-36.5 Apr 23, 2024 01:20 PM [facility] CBC & DIFF Specimen Type: BLOOD Comment: Automated Differential Performed Ordering Provider: AARON VICTOR Report Released Date/Time: Apr 23, 2024 12:05 PM Reporting Lab: [facility] [phone] Performing Lab: [facility] [address] WBC 12.50 10*3/uL H 4.0-11.0 RBC 4.07 [...] 10*3/uL 0-0.1 Apr 23, 2024 01:20 PM [facility] COMPREHENSIVE METABOLIC PANEL+MG Specimen Type: PLASMA No comment entered. Ordering Provider: AARON VICTOR Report Released Date/Time: Apr 23, 2024 12:05 PM Reporting Lab: [facility] [phone] Performing Lab: [facility] [address] CREATININE 0.7 mg/dL 0.7-1.2 UREA NITROGEN 19 [...] >90 >60 Apr 21, 2024 07:28 AM [facility] URINALYSIS Specimen Type: URINE No comment entered. Ordering Provider: ANANDA HUGGINS Report Released Date/Time: Apr 21, 2024 07:37 AM Reporting Lab: [facility] [address] Performing Lab: [facility] [address] [facility] [address] URINE COLOR COLORLESS SPECIFIC GRAVITY 1.009 1.003-1.03 [...] 23, 2024 01:59 PM 211.1 30 [place] [facility] Social History: Smoking Status (Most current) and [...] 06, 2023 11:30 AM VA-TOBACCO FORMER USER [facility] Tobacco Use History This section includes a history of the smoking, or tobacco-related health factors, that were collected on or before the date of the Encounter. The data comes from the [place] facility where the Encounter took place. Date/Time Smoking Status/Tobacco Use Comment F acility May 06, 2023 11:30 AM VA-TOBACCO QUIT 15 YRS OR MORE [facility] Jun 04, 2022 09:00 AM VA-TOBACCO FORMER USER [facility] Jun 04, 2022 09:00 AM VA-TOBACCO QUIT 15 YRS OR MORE [facility] Jul 10, 2021 08:00 AM VA-TOBACCO FORMER USER [facility] Jul 10, 2021 08:00 AM VA-TOBACCO QUIT 5 TO < 15 YRS [facility] May 23, 2020 08:30 AM VA-TOBACCO FORMER USER [facility] May 23, 2020 08:30 AM VA-TOBACCO QUIT 5 TO < 15 YRS [facility] Mar 20, 2019 04:03 PM VA-TOBACCO FORMER USER [facility] Mar 20, 2019 04:03 PM VA-TOBACCO QUIT 5 TO < 15 YRS [facility] Mar 21, 2018 08:13 AM FORMER TOBACCO USER 7Y OR GREATE R [facility] Feb 24, 2017 09:24 AM FORMER TOBACCO USER 7Y OR GREATE R [facility] January 07, 2016 08:01 AM FORMER TOBACCO USE >1Y <7Y [facility] Feb 03, 2015 07:58 AM FORMER TOBACCO USE <1Y [facility] Feb 26, 2014 08:41 AM CURRENT TOBACCO USER [facility] May 13, 2011 01:45 PM CURRENT TOBACCO USER [facility] Advance Directives: All historical and [...] Mar 23, 2016 CLINICAL WARNING [place] [facility] Radiology Reports: +/- 30 days [...] FISTULOGRAM / S INOGRAM (P): FLACA WEAVER [id number] -1950 M Exm Date: MAY 11, 2024@12:39 Req Phys: PALMIRA POWELL Loc: [facility] C/R FOLLOW-UP CLINIC (Req' Img Loc: INTERVENTIONAL RADIOLOGY Service: [place] [address] (Case [id number] COMPLETE) IR INJECTION FOR SINOGRAM DIAGNOS(ANI Detailed) CPT:29989 Contrast Media : Non-ionic Iodinated Reason for Study: s/p drain placement for diverticular abscess- assess for drain (Case [id number] COMPLETE) IR FISTULOGRAM OR SINOGRAM (ANI Detailed) CPT:08706 Contrast Media : unspecified contrast media (Case 3773 COMPLETE) IR DRAINAGE CATHETER SUPPLY (ANI Detailed) CPT:C1729 Clinical History: [place] IS NOT under investigation for COVID-19 or is COVID-19 negative s/p drain placement for diverticular abscess- assess for drain removal Contact number for responsible provider who can be reached for any questions or notifications of critical findings: [phone] Palmira Powell MD LAST CREATININE 0.7 (05/04/24) Report Status: Verified Date Reported: MAY 11, 2024 Date Verified: MAY 11, 2024 Electric Motor Winders Assembler E-Sig:/ES/AMINTA ESCALONA MD Report: PROCEDURES Abdominal drain [...] Interpreting Staff: AMINTA ESCALONA MD, INTERVENTIONAL RADIOLOGIST (Electric Motor Winders Assembler) /AMINTA VELAZCO [facility] May 11, 2024 11:[address] (AP) ABDOMEN/PE LVIS (P): FLACA WEAVER [id number] -1950 M Exm Date: MAY 11, 2024@11:40 Req Phys: PALMIRA POWELL Loc: [facility] C/R FOLLOW-UP CLINIC (Req' Img Loc: CT IMAGING Service: [place] [address] (Case [id number] COMPLETE) CT (AP) ABDOMEN/PELVIS W CONTRAST(CT Detailed) CPT:04567 Contrast Media : Non-ionic Iodinated Reason for [...] any questions or notifications of critical findings: [phone] Palmira Powell MD LAST 3: Collection DT [...] PLASMA .CREAT EGFR(CKD-E >90 Ref: >=60 Allergies: ([place] only) TERAZOSIN (Mar 13, 2015) Report Status: Verified Date Reported: MAY 11, 2024 Date Verified: MAY 11, 2024 Electric Motor Winders Assembler E-Sig:/ES/LISA PENDLETON MD Report: CT abdomen and [...] Primary Interpreting Staff: LISA PENDLETON MD, RADIOLOGIST (Electric Motor Winders Assembler) /JRT LISA PENDLETON [facility] Apr 24, 2024 02:13 PM ABSCESS DRAIN PLAC EMENT PERITONEAL (P): FLACA WEAVER [id number] -1950 M Exm Date: APR 24, 2024@14:13 Req Phys: TAURUS WOOD Loc: [facility]/04-24-2024@16:07 Img Loc: INTERVENTIONAL RADIOLOGY Service: PRIMARY CARE [place] [address] (Case [id number] COMPLETE) IR PERITONEAL/RETROPERITONEAL PER(ANI Detailed) CPT:82304 Reason for Study: diverticular abscess Clinical History: IS NOT under investigation for COVID-19 or is COVID-19 negative 73yo M with hx of recurrent diverticulitis, transferred from [facility] 04/[address] 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 Palmira Powell MD LAST CREATININE 0.7 (04/23/24) Report Status: Verified Date Reported: APR 24, 2024 Date Verified: APR 24, 2024 Electric Motor Winders Assembler E-Sig:/ES/SADIA DEE MD Report: PROCEDURES: Placement of [...] real-time CT fluoroscopy, a 5 [place] Yueh catheter was advanced into the collection in the left lower quadrant. A wire was coiled in the collection. The tract into the collection was dilated to accommodate the 12 [place] locking pigtail drainage catheter. The catheter was secured to the skin with monofilament suture and connected to JUAN bulb suction. Impression: Successful placement of a 12 [place] locking pigtail drainage catheter in the left lower quadrant abscess. This catheter is connected to JUAN bulb suction with flushes, as ordered. I, SADIA DEE, have reviewed the images and report. Primary Interpreting Staff: SADIA DEE MD, RADIOLOGIST (Electric Motor Winders Assembler) Primary Interpreting Resident: JEFFREY FLOWER MD, COAT MAKER /SADIA SNYDER [facility] Apr 24, 2024 02:[address] NEEDLE PLACEMEN T (P): FLACA WEAVER [id number] -1950 M Exm Date: APR 24, 2024@14:11 Req Phys: ISRAELGRACIELAVITA HILLMAN Amanda Loc: [facility]/04-24-2024@16:07 Img Loc: CT IMAGING Service: PRIMARY CARE [place] [address] (Case [id number] COMPLETE) CT SCAN FOR NEEDLE PLACEMENT (CT Detailed) CPT:80324 Reason for Study: diverticular abscess Clinical History: Report Status: Verified Date Reported: APR 24, 2024 Date Verified: APR 24, 2024 Electric Motor Winders Assembler E-Sig:/ES/SADIA DEE MD Report: PROCEDURES: Placement of [...] real-time CT fluoroscopy, a 5 [place] Yueh catheter was advanced into the collection in the left lower quadrant. A wire was coiled in the collection. The tract into the collection was dilated to accommodate the 12 [place] locking pigtail drainage catheter. The catheter was secured to the skin with monofilament suture and connected to JUAN bulb suction. Impression: Successful placement of a 12 [place] locking pigtail drainage catheter in the left lower quadrant abscess. This catheter is connected to JUAN bulb suction with flushes, as ordered. I, SADIA DEE, have reviewed the images and report. Primary Interpreting Staff: SADIA DEE MD, RADIOLOGIST (Electric Motor Winders Assembler) Primary Interpreting Resident: JEFFREY FLOWER MD, COAT MAKER /SADIA SNYDER [facility] Apr 23, 2024 06:36 AM ON LICENSE OF [facility] CT ABDOMEN/ PELVIS: FLACA WEAVER [id number] -1950 M Exm Date: APR 23, 2024@06:36 Req Phys: MCKAY VICTOR [facility] Loc: 04-24-2024@10:25 Img Loc: OUTSOURCE CT Service: Unknown (Case [id number] COMPLETE) NON [place] CT ABDOMEN/PELVIS (CT Detailed) CPT:73290 Reason for Study: OUTSIDE STUDY Clinical History: OUTSIDE STUDY Report Status: Electronically Filed Date Reported: APR 24, 2024 Report: This is an outside Imaging study and/or report imported for continuity of patient care. This Imaging study and/or report was not reviewed or verified by a [place] Radiologist. Impression: This is an outside Imaging study and/or report imported for continuity of patient care. This Imaging study and/or report was not reviewed or verified by a [place] Radiologist. Primary Diagnostic Code: VERIFIED BY: / *ELECTRONICALLY FILED* [facility] Pathology Reports: +/- 30 days of [...] comes from all [place] treatment facilities. Date/Time Pathology Report Provider Source Apr 21, 2024 07:28 AM LR MICROBIOLOGY RE PORT: Reporting Lab: [facility] [CLIA# [id number]] [place] [address] Accession [UID]: [id number] [[id number]] Received: Apr 21, 2024@08:16 Collection sample: URINE Collection date: Apr 21, 2024 07:28 Provider: ANANDA HUGGINS Comment on specimen: RECEIVED IN STERILE CUP Test(s) ordered: CULTURE & SUSCEPTIBILITY...... completed: Apr 22, 2024 * BACTERIOLOGY FINAL REPORT => Apr 22, 2024 08:38 TECH CODE: [id number] CULTURE RESULTS: NO GROWTH 24 HOURS Bacteriology Remark(s): THIS REPORT IS FINAL =--=--=--=--=--=--=--=--=--=--=--=- -=--=--=--=--=--=--=--=--=--=--=--= --=--=-- Performing Laboratory: Bacteriology Report Performed By: [facility] [CLIA# [id number]] [place] [address] [facility] Encounter Notes: All associated encounter notes [...] DATE/TIME PERFORMED: APR 24, 2024@07:51:0 DOCUMENT IN VISTA IMAGING SEE FULL REPORT IN VISTA IMAGING SIGNATURE NOT REQUIRED SEE SIGNATURE IN VISTA IMAGING (Demand[employer]ERA ISCV TTE INPT) AUTO-INSTRUMENT DIAGNOSIS Procedure: Adult Adult Release Status: Released Off-Line Verified Date Verified: Apr 24, 2024@09:45:07 CP Order Number: [id number] Study ID: [id number] + + [place], [place] + + [facility] [address] [place] Transthoracic Echocardiogram Report + + :Name: FLACA WEAVER Study Date: 04/24/2024 Height: 71 in : : Patient Location: \S\3KS Weight: 211 lb: :: 1950 Gender: Male BSA: 2.2 m2 : :Age: 73 yrs : :CP Order Number: [id number] : :Reason For Study: [place] : + + :Assistant Property Manager: Juliana Morgan RDCS : + + :Referring Physician: MCKAY VICTOR : + + + + Interpretation Summary A complete two-dimensional transthoracic echocardiogram (02294) was performed with contrast (Q9957). 1. The [...] comparison. Procedure A complete two-dimensional transthoracic echocardiogram (12280) was performed with contrast (Q9957). Left Ventricle [...] P.0 mmHg FABIAN(VTI)/BSA: 1.1 Reading Physician:09:45 AM [id number] Administrative Closure: 04/24/2024 by: CLINICAL,DEVICE PROXY SERVICE CLINICAL,DEVICE PROXY SERVICE [facility]
--- OUTSIDE RECORDS SUMMARY | 2024-07-16 07:10 | XMS_ITS ---
[place] DAILY HOSPITALIZATION DATA [facility] Encounter Summary Created on: July 16, 2024 FLACA WEAVER : 1950 Sex: Male Author Name [facility] [place] [facility] [place] [facility] [place] Address [address] [place] [address] Care Team Providers Care Milled Rice Broker Name Role Phone JATINDER BENITEZ Primary Care [...] PART A Sep 29, 2016 PART A [id number] [phone] JUDY WEAVER PATIENT Selected Encounter This section includes the information on record at [place] for the Encounter. Date/Time Encounter Type Encounter Description Reason Pro vider Source Apr 24, 2024 07:23 PM Inpatient Visit DAILY HOSPITALIZATION DATA [facility] Encounter Template Text not used by [place] [...] 02:30 PM AM[place]ORY - NONE [place] [facility] May 02, 2024 10:00 AM AMBULATORY - SURGERY [place] [facility] May 04, 2024 09:00 AM AMBULATORY - NONE [place] [facility] May 07, 2024 08:45 AM AMBULATORY - [place]ICINE [place] [facility] May 08, 2024 02:00 PM AMBULATORY - NONE [place] [facility] May 09, 2024 07:30 AM AMBUL[place]ORY - SURGERY [place] [facility] May 11, 2024 01:00 PM AMBULATORY - NONE [place] [facility] May 11, 2024 03:30 PM [place]BULATORY - NONE [place] [facility] May 15, 2024 08:30 AM [place]UL[place]ORY [place]ICINE [place] [facility] May 16, 2024 07:45 AM AMBULATORY - SURGERY [place] [facility] May 22, 2024 07:30 AM AMBULATORY - NONE [place] [facility] May 22, 2024 05:30 PM AMBULATORY - NONE [place] [facility] May 25, 2024 08:22 AM AMBULATORY - NONE [place] [facility] May 25, 2024 09:00 AM AMBULATORY - NONE [place] [facility] May 28, 2024 08:15 AM AMBULATORY - SURGERY [place] [facility] Jun 04, 2024 11:30 AM AMBULATORY - NONE [place] [facility] Jun 08, 2024 11:00 AM AMBULATORY - [place]GERY [place] [facility] Jun 08, 2024 12:45 PM AMBULATORY - NONE [place] [facility] Jun 08, 2024 01:15 PM AMBUL[place]ORY - [place]ICINE [place] [facility] Jun 08, 2024 01:45 PM AMBULATORY - SURGERY [place] [facility] Active, Pending, and Scheduled Orders This section includes a listing of several types of active, pending, and scheduled orders, including clinic medications orders, diagnostic test orders, procedure orders and consult orders; where the start date of the order is 45 days before the date of the Encounter or 45 days after the date of theEncounter. The data comes from all [place] treatment facilities. Test Date/Time Test Type Test Details Facility Name Apr 26, 2024 10:10 AM Laboratory - Microbiology Order GRAM STAIN WOUND OTHER WC ONCE ~For Test: GRAM STAIN ~JUAN drain culture/gram stain [facility] Apr 26, 2024 10:10 AM Laboratory - Microbiology Order CULTURE & SUSCEPTIBILITY WOUND OTHER WC ONCE ~For Test: CULTURE & SUSCEPTIBILITY ~Culture sample from JUAN drain output [facility] May 28, 2024 12:00 AM Laboratory - Blood Bank Order TYPE & SCREEN - LAB BLOOD SP [facility] Jun 08, 2024 09:57 AM Laboratory - Chemistry Order URINALYSIS URINE WC ONCE [facility] Lab Results: +/- 30 days of the encounter This section includes the Chemistry and Hematology Lab Results on record with [place] for the patient. Radiology Reports and Pathology Reports are provided separately, in subsequent sections. Lab Results This section contains the Chemistry/Hematology Results that were resulted 30 days before or 30 daysafter the date of the Encounter. Date/Time Source Result Type Result - Unit Interpretation Reference Range Comment May 21, 2024 06:59 AM [facility] BASIC METABOLIC PANEL+MG Specimen Type: PLASMA No comment entered. Ordering Provider: GOLDIE BENITEZ Report Released Date/Time: May 15, 2024 08:34 AM Reporting Lab: [facility] [address] Performing Lab: [facility] [address] CREATININE 0.9 mg/dL 0.7-1.2 UREA NITROGEN 18 mg/dL 8-26 GLUCOSE 126 mg/dL H 70-100 SODIUM 138 mmol/L 136-145 POTASSIUM 4.0 mmol/L 3.5-5.1 CHLORIDE 105 mmol/L 98-107 CO2 24 mmol/L 22-29 CALCIUM 9.8 mg/dL 8.4-10.2 MAGNESIUM 2.0 mg/dL 1.6-2.6 ANION GAP 9 mmol/L 5-15 .CREAT EGFR(CKD-EPI) >90 >60 May 04, 2024 08:36 AM [facility] BASIC METABOLIC PANEL+MG Specimen Type: PLASMA No comment entered. Ordering Provider: GOLDIE BENITEZ Report Released Date/Time: May 03, 2024 12:52 PM Reporting Lab: [facility] [address] Performing Lab: [facility] [address] CREATININE 0.7 mg/dL 0.7-1.2 UREA NITROGEN 13 mg/dL 8-26 GLUCOSE 91 mg/dL 70-100 SODIUM 141 mmol/L 136-145 POTASSIUM 3.6 mmol/L 3.5-5.1 CHLORIDE 109 mmol/L H 98-107 CO2 25 mmol/L 22-29 CALCIUM 8.9 mg/dL 8.4-10.2 MAGNESIUM 2.0 mg/dL 1.6-2.6 ANION GAP 7 mmol/L 5-15 .CREAT EGFR(CKD-EPI) >90 >60 Apr 26, 2024 07:16 AM [facility] BASIC METABOLIC PANEL+MG Specimen Type: PLASMA No comment entered. Ordering Provider: JONO RANDOLPH Report Released Date/Time: Apr 25, 2024 02:50 PM Reporting Lab: [facility] [address] Performing Lab: [facility] [address] CREATININE 0.7 mg/dL 0.7-1.2 UREA NITROGEN 15 [...] 25, 2024 05:04 PM Reporting Lab: [facility] [address] Performing Lab: [facility] [address] CREATININE 0.7 mg/dL 0.7-1.2 UREA NITROGEN 15 [...] 24, 2024 12:37 PM Reporting Lab: [facility] [address] Performing Lab: [facility] [address] CREATININE 0.7 mg/dL 0.7-1.2 UREA NITROGEN 14 [...] 24, 2024 12:37 PM Reporting Lab: [facility] [address] Performing Lab: [facility] [address] CREATININE 0.7 mg/dL 0.7-1.2 UREA NITROGEN 16 [...] Critical Value Reported To: Cait Zamorano RN 04-24-24@[address] [place] [address]. Critical value report confirmed. Ordering Provider: AARON VICTOR Report Released Date/Time: Apr 23, 2024 05:30 PM Reporting Lab: [facility] [address] Performing Lab: [facility] [address] CREATININE 0.7 mg/dL 0.7-1.2 UREA NITROGEN 16 [...] Comment: Automated Differential Performed Ordering Provider: AARON VICTRO Report Released Date/Time: Apr 23, 2024 05:30 PM Reporting Lab: [facility] [address] Performing Lab: [facility] [address] WBC 10.49 10*3/uL 4.0-11.0 RBC 3.83 10*6/uL [...] 23, 2024 12:05 PM Reporting Lab: [facility] [address] Performing Lab: [facility] [address] LACTIC ACID 1.5 mmol/L 0.5-2.2 Apr 23, 2024 01:20 PM [facility] PROTHROMBIN TIME/INR Specimen Type: PLASMA No comment entered. Ordering Provider: AARON VICTOR Report Released Date/Time: Apr 23, 2024 12:05 PM Reporting Lab: [facility] [address] Performing Lab: [facility] [address] .INR 1.2 H 0.8-1.1 .PT 14.5 s H 9.4-12.5 Apr 23, 2024 01:20 PM [facility] ACT PART THROMBO TIME Specimen Type: PLASMA No comment entered. Ordering Provider: AARON VICTOR Report Released Date/Time: Apr 23, 2024 12:05 PM Reporting Lab: [facility] [address] Performing Lab: [facility] [address] APTT 29.3 s 25.1-36.5 Apr 23, 2024 01:20 PM [facility] COMPREHENSIVE METABOLIC PANEL+MG Specimen Type: PLASMA No comment entered. Ordering Provider: AARON VICTOR Report Released Date/Time: Apr 23, 2024 12:05 PM Reporting Lab: [facility] [address] Performing Lab: [facility] [address] CREATININE 0.7 mg/dL 0.7-1.2 UREA NITROGEN 19 [...] 23, 2024 12:05 PM Reporting Lab: [facility] [address] Performing Lab: [facility] [address] WBC 12.50 10*3/uL H 4.0-11.0 RBC 4.07 [...] Apr 21, 2024 07:37 AM Reporting Lab: [facility] [address] Performing Lab: [facility] [address] URINE COLOR COLORLESS SPECIFIC GRAVITY 1.009 1.003-1.03 [...] Source Apr 24, 2024 10:48 PM 5 [facility] Apr 24, 2024 06:35 PM 5 [facility] Apr 24, 2024 04:00 PM 59 147/71 14 0 [facility] Apr 24, 2024 12:15 PM 0 [facility] Apr 24, 2024 10:12 AM 4 [facility] Social History: Smoking Status (Most current) and [...] 06, 2023 11:30 AM [place]-TOBACCO FORMER USER [facility] Tobacco Use History [...] OR GREATE R [facility] January 07, 2016 [...] the Encounter. The data comes from all [place] treatment facilities. Date/Time Radiology Report Provider Source May 11, 2024 12:39 PM IR FISTULOGRAM / S INOGRAM (P): MEGFLACADARCI LOBO [id number] -1950 M Exm Date: MAY 11, 2024@12:39 Req Phys: PALMIRA POWELL Loc: [facility] C/R FOLLOW-UP CLINIC (Req' Img Loc: INTERVENTIONAL RADIOLOGY Service: [place] [address] (Case [id number] COMPLETE) IR INJECTION FOR SINOGRAM DIAGNOS(ANI Detailed) CPT:99097 Contrast Media : Non-ionic Iodinated Reason for Study: s/p drain placement for diverticular abscess- assess for drain (Case [id number] COMPLETE) IR FISTULOGRAM OR SINOGRAM (ANI Detailed) CPT:81442 Contrast Media : unspecified contrast media (Case [id number] COMPLETE) IR DRAINAGE CATHETER SUPPLY (ANI Detailed) CPT:C1729 Clinical History: [place] IS NOT under investigation for COVID-19 or is COVID-19 negative s/p drain placement for diverticular abscess- assess for drain removal Contact number for responsible provider who can be reached for any questions or notifications of critical findings: [phone] Palmira Powell MD LAST CREATININE 0.7 (05/04/24) Report Status: Verified Date Reported: MAY 11, 2024 Date Verified: MAY 11, 2024 Rubber Curer E-Sig:/ES/AMINTA ESCALONA MD Report: PROCEDURES Abdominal drain [...] Interpreting Staff: AMINTA ESCALONA MD, INTERVENTIONAL RADIOLOGIST (Rubber Curer) /AMINTA VELAZCO [facility] May 11, 2024 11:[address] (AP) ABDOMEN/PE LVIS (P): FLACA WEAVER [id number] -1950 M Exm Date: MAY 11, 2024@11:40 Req Phys: PALMIRA POWELL Loc: [facility] C/R FOLLOW-UP CLINIC (Req' Img Loc: CT IMAGING Service: [place] [address] (Case [id number] COMPLETE) CT (AP) ABDOMEN/PELVIS W CONTRAST(CT Detailed) CPT:25083 Contrast Media : Non-ionic Iodinated Reason for [...] any questions or notifications of critical findings: [phone] Palmira Powell MD LAST 3: Collection DT [...] 11, 2024 Date Verified: MAY 11, 2024 Rubber Curer E-Sig:/ES/LISA PENDLETON MD Report: CT abdomen and [...] Primary Interpreting Staff: LISA PENDLETON MD, RADIOLOGIST (Rubber Curer) /JRT LISA PENDLETON [facility] Apr 24, 2024 02:13 PM ABSCESS DRAIN PLAC EMENT PERITONEAL (P): FLACA WEAVER [id number] -1950 M Exm Date: APR 24, 2024@14:13 Req Phys: TAURUS WOOD Loc: 3K04-24-2024@16:07 Img Loc: INTERVENTIONAL RADIOLOGY Service: PRIMARY CARE [place] [address] (Case [id number] COMPLETE) IR PERITONEAL/RETROPERITONEAL PER(ANI Detailed) CPT:27676 Reason for Study: diverticular abscess Clinical History: [place] IS NOT under investigation for COVID-19 or is COVID-19 negative 73yo M with hx of recurrent diverticulitis, transferred from [facility] 04/[address] 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 Palmira Powell MD LAST CREATININE 0.7 (04/23/24) Report Status: Verified Date Reported: APR 24, 2024 Date Verified: APR 24, 2024 Rubber Curer E-Sig:/ES/SADIA DEE MD Report: PROCEDURES: Placement of [...] anesthesia. Using real-time CT fluoroscopy, a 5 Belarusian Yueh catheter was advanced into the collection in the left lower quadrant. A wire was coiled in the collection. The tract into the collection was dilated to accommodate the 12 Belarusian locking pigtail drainage catheter. The catheter was secured to the skin with monofilament suture and connected to JUAN bulb suction. Impression: Successful placement of a 12 Belarusian locking pigtail drainage catheter in the left lower quadrant abscess. This catheter is connected to JUAN bulb suction with flushes, as ordered. I, SADIA DEE, have reviewed the images and report. Primary Interpreting Staff: SADIA DEE MD, RADIOLOGIST (Rubber Curer) Primary Interpreting Resident: JEFFREY FLOWER MD, TREE FRUIT AND NUT FARMING SUPERVISOR /SADIA SNYDER [facility] Apr 24, 2024 02:[address] NEEDLE PLACEMEN T (P): FLACA WEAVER [id number] -1950 M Exm Date: APR 24, 2024@14:11 Req Phys: TAURUS WOOD Loc: 3K04-24-2024@16:07 Im Loc: CT IMAGING Service: PRIMARY CARE [place] [address] (Case [id number] COMPLETE) CT SCAN FOR NEEDLE PLACEMENT (CT Detailed) CPT:04826 Reason for Study: diverticular abscess Clinical History: Report Status: Verified Date Reported: APR 24, 2024 Date Verified: APR 24, 2024 Rubber Curer E-Sig:/ES/SADIA DEE MD Report: PROCEDURES: Placement of [...] anesthesia. Using real-time CT fluoroscopy, a 5 Belarusian Yueh catheter was advanced into the collection in the left lower quadrant. A wire was coiled in the collection. The tract into the collection was dilated to accommodate the 12 Belarusian locking pigtail drainage catheter. The catheter was secured to the skin with monofilament suture and connected to JUAN bulb suction. Impression: Successful placement of a 12 Belarusian locking pigtail drainage catheter in the left lower quadrant abscess. This catheter is connected to JUAN bulb suction with flushes, as ordered. I, SADIA EDE, have reviewed the images and report. Primary Interpreting Staff: SADIA DEE MD, RADIOLOGIST (Rubber Curer) Primary Interpreting Resident: JEFFREY FLOWER MD, TREE FRUIT AND NUT FARMING SUPERVISOR /SADIA SNYDER [facility] Apr 23, 2024 06:36 AM [facility] CT ABDOMEN/ PELVIS: FLACA WEAVER [id number] -1950 M Ex Date: APR 23, 2024@06:36 Req Phys: MCKAY VICTOR [facility] Loc: 3K04-24-2024@10:25 [facility] OUT[place] CT Service: Unknown (Case [id number] COMPLETE) NON [place] CT ABDOMEN/PELVIS (CT Detailed) CPT:36478 Reason for Study: OUTSIDE STUDY Clinical History: OUTSIDE STUDY Report Status: Electronically Filed Date Reported: APR 24, 2024 Report: This is an outside Imaging study and/or report imported for continuity of patient care. This Imaging study and/or report was not reviewed or verified by a [place] Radiologist. Impression: This is an outside Imaging study and/or report imported for continuity of patient care. This Imaging study and/or report was not reviewed or verified by a [place] Radiologist. Primary Diagnostic Code: VERIFIED BY: / [...] the Encounter. The data comes from all [place] treatment facilities. Date/Time Pathology Report Provider Source Apr 21, 2024 07:28 AM LR MICROBIOLOGY RE PORT: Reporting Lab: [facility] [CLIA# [id number]] [place] [address] Accession [UID]: [id number] [[id number]] Received: Apr 21, 2024@08:16 Collection sample: URINE Collection date: Apr 21, 2024 07:28 Provider: ANANDA HUGGINS Comment on specimen: RECEIVED IN STERILE CUP Test(s) ordered: CULTURE & SUSCEPTIBILITY...... completed: Apr 22, 2024 * BACTERIOLOGY FINAL REPORT => Apr 22, 2024 08:38 TECH CODE: [id number] CULTURE RESULTS: NO GROWTH 24 HOURS Bacteriology Remark(s): THIS REPORT IS FINAL =--=--=--=--=--=--=--=--=--=--=--=- -=--=--=--=--=--=--=--=--=--=--=--= --=--=-- Performing Laboratory: Bacteriology Report Performed By: [facility] [CLIA# [id number]] [place] [address] [facility]
--- OUTSIDE RECORDS SUMMARY | 2024-07-16 07:10 | XMS_ITS | Encounter Summary ---
Author Name [facility] [facility] [place] [facility] [facility] [place] Address [address] [place] [address] Care Team Providers Care Tooling Engineer Name Role Phone JATINDER BENITEZ Primary [...] PART A Sep 29, 2016 PART A [id number] JUDY WEAVER PATIENT Selected Encounter This section includes the information on record at [place] for the Encounter. Date/Time Encounter Type Encounter Description Reason Provider Source Apr 23, 2024 04:00 PM IP/OBS CNSLTJ NEW/EST LOW 45 GENERAL SURGERY ICD-10-CM K57.20 Dvtrcli of lg int w perforation and abscess w/o bleeding PALMIRA POWELL Encounter Template Text not used by [place] Assessments - Encounter Diagnoses This section includes the primary and secondary diagnoses documented for the Encounter. Date/Time Primary/Secondary Diagnosis Diagnosis Name Provider Source Apr 24, 2024 04:48 PM PRIMARY Dvtrcli of lg int w perforation and abscess w/o bleeding PALMIRA POWELL [facility] Plan of Treatment: Future Appointments (+ 6 months) and Future Tests (+/- 45 days) The Plan of Treatment section includes future care activities [facility] the [facility] [place] [facility] This section includes future appointments and future orders which are active, pending or scheduled. Future Appointments This section includes appointments that were scheduled to occur 6 months from the date of the Encounter, up to a maximum of 20 appointments. The data comes from all [facility] facilities. Appointment Date/Time Appointment Type Appointme nt Facility Name Apr 27, 2024 02:30 PM [place]ORY [place] [facility] May 02, 2024 10:00 AM [place] [facility] May 04, 2024 09:00 AM AM[place]ORY - NONE [place] [facility] May 07, 2024 08:45 AM [place]IC[place] [facility] May 08, 2024 02:00 PM AMBULATORY - NONE [place] [facility] May 09, 2024 07:30 AM [place] [facility] May 11, 2024 01:00 PM AM[place]UL[place]ORY - NONE [place] [facility] May 11, 2024 03:30 PM AM[place]ORY - NONE [place] [facility] May 15, 2024 08:30 AM [place] [facility] May 16, 2024 07:45 AM [place] [facility] May 22, 2024 07:30 AM AM[place]ORY - NONE [place] [facility] May 22, 2024 05:30 PM AM[place]ORY - NONE [place] [facility] May 25, 2024 08:22 AM AM[place]ORY - [place]ONE [place] [facility] May 25, 2024 09:00 AM AM[place]ORY - NONE [place] [facility] May 28, 2024 08:15 AM AMB[place]ORY [place]GERY [place] [facility] Jun 04, 2024 11:30 AM AMBUL[place]ORY - NONE [place] [facility] Jun 08, 2024 11:00 AM AM[place] [facility] Jun 08, 2024 12:45 PM AM[place]UL[place]ORY - NONE [place] [facility] Jun 08, 2024 01:15 PM [place]IC[place] [facility] Jun 08, 2024 01:45 PM AMBULATORY - SURGERY [place] [facility] Active, Pending, and Scheduled Orders This section includes a listing of several types of active, pending, and scheduled orders, including clinic medications orders, diagnostic test orders, procedure orders and consult orders; where the start date of the order is 45 days before the date of the Encounter or 45 days after the date of theEncounter. The data comes from all [place] treatment facilities. Test Date/Time Test Type Test Details Facility Name Apr 26, 2024 10:10 AM Laboratory - Microbiology Order GRAM STAIN WOUND OTHER WC ONCE ~For Test: GRAM STAIN ~JUAN drain culture/gram stain [facility] Apr 26, 2024 10:10 AM Laboratory - Microbiology Order CULTURE & SUSCEPTIBILITY WOUND OTHER WC ONCE ~For Test: CULTURE & SUSCEPTIBILITY ~Culture sample from JUAN drain output [facility] May 28, 2024 12:00 AM Laboratory - Blood Bank Order TYPE & SCREEN - LAB BLOOD SP [facility] Lab Results: +/- 30 days of the encounter This section includes the Chemistry and Hematology Lab Results on record with [place] for the patient. Radiology Reports and Pathology Reports are provided separately, in subsequent sections. Lab Results This section contains the Chemistry/Hematology Results that were resulted 30 days before or 30 daysafter the date of the Encounter. Date/Time Source Result Type Result - Unit Interpretation Reference Range Comment May 21, 2024 06:59 AM [facility] BASIC METABOLIC PANEL+MG Specimen Type: PLASMA No comment entered. Ordering Provider: GOLDIE BENITEZ Report Released Date/Time: May 15, 2024 08:34 AM Reporting Lab: [facility] [address] Performing Lab: [facility] [address] CREATININE 0.9 mg/dL 0.7-1.2 UREA NITROGEN 18 mg/dL 8-26 GLUCOSE 126 mg/dL H 70-100 SODIUM 138 mmol/L 136-145 POTASSIUM 4.0 mmol/L 3.5-5.1 CHLORIDE 105 mmol/L 98-107 CO2 24 mmol/L 22-29 CALCIUM 9.8 mg/dL 8.4-10.2 MAGNESIUM 2.0 mg/dL 1.6-2.6 ANION GAP 9 mmol/L 5-15 .CREAT EGFR(CKD-EPI) >90 >60 May 04, 2024 08:36 AM [facility] BASIC METABOLIC PANEL+MG Specimen Type: PLASMA No comment entered. Ordering Provider: GLODIE BENITEZ Report Released Date/Time: May 03, 2024 12:52 PM Reporting Lab: [facility] [address] Performing Lab: [facility] [address] CREATININE 0.7 mg/dL 0.7-1.2 UREA NITROGEN 13 mg/dL 8-26 GLUCOSE 91 mg/dL 70-100 SODIUM 141 mmol/L 136-145 POTASSIUM 3.6 mmol/L 3.5-5.1 CHLORIDE 109 mmol/L H 98-107 CO2 25 mmol/L 22-29 CALCIUM 8.9 mg/dL 8.4-10.2 MAGNESIUM 2.0 mg/dL 1.6-2.6 ANION GAP 7 mmol/L 5-15 .CREAT EGFR(CKD-EPI) >90 >60 Apr 26, 2024 07:16 AM [facility] BASIC METABOLIC PANEL+MG Specimen Type: PLASMA No comment entered. Ordering Provider: JONO RANDOLPH Report Released Date/Time: Apr 25, 2024 02:50 PM Reporting Lab: [facility] [address] Performing Lab: [facility] [address] CREATININE 0.7 mg/dL 0.7-1.2 UREA NITROGEN 15 [...] Apr 25, 2024 05:04 PM Reporting Lab: [facility] [address] Performing Lab: [facility] [address] CREATININE 0.7 mg/dL 0.7-1.2 UREA NITROGEN 15 [...] Apr 24, 2024 12:37 PM Reporting Lab: [facility] [address] Performing Lab: [facility] [address] CREATININE 0.7 mg/dL 0.7-1.2 UREA NITROGEN 14 [...] Apr 24, 2024 12:37 PM Reporting Lab: [facility] [address] Performing Lab: [facility] [address] CREATININE 0.7 mg/dL 0.7-1.2 UREA NITROGEN 16 [...] Critical Value Reported To: Cait Zamorano RN 04-24-@08[facility]. Critical value report confirmed. Ordering Provider: AARON VICTOR Report Released Date/Time: Apr 23, 2024 05:30 PM Reporting Lab: [facility] [address] Performing Lab: [facility] [address] CREATININE 0.7 mg/dL 0.7-1.2 UREA NITROGEN 16 [...] Apr 23, 2024 05:30 PM Reporting Lab: [facility] [address] Performing Lab: [facility] [address] WBC 10.49 10*3/uL 4.0-11.0 RBC 3.83 10*6/uL [...] Apr 23, 2024 12:05 PM Reporting Lab: [facility] [address] Performing Lab: [facility] [address] LACTIC ACID 1.5 mmol/L 0.5-2.2 Apr 23, 2024 01:20 PM [facility] PROTHROMBIN TIME/INR Specimen Type: PLASMA No comment entered. Ordering Provider: AARON VICTOR Report Released Date/Time: Apr 23, 2024 12:05 PM Reporting Lab: [facility] [address] Performing Lab: [facility] [address] .INR 1.2 H 0.8-1.1 .PT 14.5 s H 9.4-12.5 Apr 23, 2024 01:20 PM [facility] ACT PART THROMBO TIME Specimen Type: PLASMA No comment entered. Ordering Provider: AARON VICTOR Report Released Date/Time: Apr 23, 2024 12:05 PM Reporting Lab: [facility] [address] Performing Lab: [facility] [address] APTT 29.3 s 25.1-36.5 Apr 23, 2024 01:20 PM [facility] COMPREHENSIVE METABOLIC PANEL+MG Specimen Type: PLASMA No comment entered. Ordering Provider: AARON VICTOR Report Released Date/Time: Apr 23, 2024 12:05 PM Reporting Lab: [facility] [address] Performing Lab: [facility] [address] CREATININE 0.7 mg/dL 0.7-1.2 UREA NITROGEN 19 [...] Apr 23, 2024 12:05 PM Reporting Lab: [facility] [address] Performing Lab: [facility] [address] WBC 12.50 10*3/uL H 4.0-11.0 RBC 4.07 [...] Apr 21, 2024 07:37 AM Reporting Lab: [facility] [address] Performing Lab: [facility] [address] URINE COLOR COLORLESS SPECIFIC GRAVITY 1.009 1.003-1.03 [...] 23, 2024 01:59 PM 211.1 30 [place] [facility] Social History: Smoking Status (Most current) and Tobacco Use (All prior to encounter date) This section includes the most current, and the historical, smoking and tobacco- related health factors from the [place] facility where the Encounter took place. Current Smoking Status This section includes the most current smoking, or tobacco-related health factor, from the [place] facility where the Encounter took place. Date/Time Current Smoking Status Comment Juan Manuel putnam May 06, 2023 11:30 AM VA-TOBACCO FORMER USER [facility] Tobacco Use History This section includes a history of the smoking, or tobacco-related health factors, that were collected on or before the date of the Encounter. The data comes from the [place] facility where the Encounter took place. Date/Time Smoking Status/Tobacco Use Comment Angelo mott May 06, 2023 11:30 AM VA-TOBACCO QUIT 15 YRS OR MORE [facility] Jun 04, 2022 09:00 AM VA-TOBACCO FORMER USER [facility] Jun 04, 2022 09:00 AM [place]-TOBAC[place] QUIT 15 YRS OR MORE [facility] [...] ALL of a patient's completed or amended [place] Advance and Rescinded Directives. The entries below indicate that a directive exists for the patient, but an actual copy is not included with this document. The data comes from all [facility]. Date Advance Directives Provider Source Mar 23, 2016 CLINICAL WARNING TOÑITOTIM GONZALEZ [facility] Radiology Reports: +/- 30 days of [...] the Encounter. The data comes from all [place] treatment facilities. Date/Time Radiology Report Provider Source May 11, 2024 12:39 PM IR FISTULOGRAM / S INOGRAM (P): MEGFLACA YAMIL [id number] -1950 M Exm Date: MAY 11, 2024@12:39 Req Phys: PALMIRA POWELL Loc: [facility] C/R FOLLOW-UP CLINIC (Req' Img Loc: INTERVENTIONAL RADIOLOGY Service: [place] [address] (Case [id number] COMPLETE) IR INJECTION FOR SINOGRAM DIAGNOS(ANI Detailed) CPT:16936 Contrast Media : Non-ionic Iodinated Reason for Study: s/p drain placement for diverticular abscess- assess for drain (Case [id number] COMPLETE) IR FISTULOGRAM OR SINOGRAM (ANI Detailed) CPT:64313 Contrast Media : unspecified contrast media (Case 3773 COMPLETE) IR DRAINAGE CATHETER SUPPLY (ANI Detailed) CPT:C1729 Clinical History: [place] IS NOT under investigation for COVID-19 or is COVID-19 negative s/p drain placement for diverticular abscess- assess for drain removal Contact number for responsible provider who can be reached for any questions or notifications of critical findings: [phone] Palmira Powell MD LAST CREATININE 0.7 (05/04/24) Report Status: Verified Date Reported: MAY 11, 2024 Date Verified: MAY 11, 2024 Electric Truck Operator E-Sig:/ES/AMINTA ESCALONA MD Report: PROCEDURES Abdominal [...] Staff: AMINTA ESCALONA MD, INTERVENTIONAL RADIOLOGIST (Electric Truck Operator) /AMINTA VELAZCO [facility] May 11, 2024 11:[address] (AP) ABDOMEN/PE LVIS (P): FLACA WEAVER [id number] -1950 M Exm Date: MAY 11, 2024@11:40 Req Phys: PALMIRA POWELL Loc: [facility] C/R FOLLOW-UP CLINIC (Req' Img Loc: CT IMAGING Service: [place] [address] (Case [id number] COMPLETE) CT (AP) ABDOMEN/PELVIS W CONTRAST(CT Detailed) CPT:93424 Contrast Media : Non-ionic Iodinated Reason for [...] any questions or notifications of critical findings: [phone] Palmira Powell MD LAST 3: Collection DT [...] PLASMA .CREAT EGFR(CKD-E >90 Ref: >=60 Allergies: ([place] only) TERAZOSIN (Mar 13, 2015) Report Status: Verified Date Reported: MAY 11, 2024 Date Verified: MAY 11, 2024 Electric Truck Operator E-Sig:/ES/LISA PENDLETON MD Report: CT abdomen [...] Interpreting Staff: LISA PENDLETON MD, RADIOLOGIST (Electric Truck Operator) /JRT LISA PENDLETON [facility] Apr 24, 2024 02:13 PM ABSCESS DRAIN PLAC EMENT PERITONEAL (P): FLACA WEAVER [id number] -1950 M Exm Date: APR 24, 2024@14:13 Req Phys: TAURUS WOOD Loc: 3K04-24-2024@16:07 Img Loc: INTERVENTIONAL RADIOLOGY Service: PRIMARY CARE [place] [address] (Case [id number] COMPLETE) IR PERITONEAL/RETROPERITONEAL PER(ANI Detailed) CPT:93158 Reason for Study: diverticular abscess Clinical History: [place] IS NOT under investigation for COVID-19 or is COVID-19 negative 73yo M with hx of recurrent diverticulitis, transferred from [facility] 04/[address] 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 Palmira Powell MD LAST CREATININE 0.7 (04/23/24) Report Status: Verified Date Reported: APR 24, 2024 Date Verified: APR 24, 2024 Electric Truck Operator E-Sig:/ES/SADIA DEE MD Report: PROCEDURES: Placement [...] anesthesia. Using real-time CT fluoroscopy, a 5 Turkmen Yueh catheter was advanced into the collection in the left lower quadrant. A wire was coiled in the collection. The tract into the collection was dilated to accommodate the 12 Turkmen locking pigtail drainage catheter. The catheter was secured to the skin with monofilament suture and connected to JUAN bulb suction. Impression: Successful placement of a 12 Turkmen locking pigtail drainage catheter in the left lower quadrant abscess. This catheter is connected to JUAN bulb suction with flushes, as ordered. I, SADIA DEE, have reviewed the images and report. Primary Interpreting Staff: SADIA DEE MD, RADIOLOGIST (Electric Truck Operator) Primary Interpreting Resident: JEFFREY FLOWER MD, ELEMENTARY SUPERVISOR /SADIA SNYDER [facility] Apr 24, 2024 02:[address] NEEDLE PLACEMEN T (P): FLACA WEAVER [id number] -1950 M Exm Date: APR 24, 2024@14:11 Req Phys: TAURUS WOOD Loc: 3K04-24-2024@16:07 [facility] Loc: CT IMAGING Service: PRIMARY CARE [place] [address] (Case [id number] COMPLETE) CT SCAN FOR NEEDLE PLACEMENT (CT Detailed) CPT:80849 Reason for Study: diverticular abscess Clinical History: Report Status: Verified Date Reported: APR 24, 2024 Date Verified: APR 24, 2024 Electric Truck Operator E-Sig:/ES/SADIA DEE MD Report: PROCEDURES: Placement [...] anesthesia. Using real-time CT fluoroscopy, a 5 Turkmen Yueh catheter was advanced into the collection in the left lower quadrant. A wire was coiled in the collection. The tract into the collection was dilated to accommodate the 12 Turkmen locking pigtail drainage catheter. The catheter was secured to the skin with monofilament suture and connected to JUAN bulb suction. Impression: Successful placement of a 12 Turkmen locking pigtail drainage catheter in the left lower quadrant abscess. This catheter is connected to JUAN bulb suction with flushes, as ordered. I, SADIA DEE, have reviewed the images and report. Primary Interpreting Staff: SADIA DEE MD, RADIOLOGIST (Electric Truck Operator) Primary Interpreting Resident: JEFFREY FLOWER MD, ELEMENTARY SUPERVISOR /SADIA SNYDER [facility] Apr 23, 2024 06:[address] ABDOMEN/ PELVIS: FLACA WEAVER [id number] -1950 [facility] Date: APR 23, 2024@06:36 Req Phys: MCKAY VICTOR Loc: 3K04-24-2024@10:25 Img Loc: OUTSOURCE CT Service: Unknown (Case [id number] COMPLETE) NON [place] CT ABDOMEN/PELVIS (CT Detailed) CPT:69864 Reason for Study: OUTSIDE STUDY Clinical History: OUTSIDE STUDY Report Status: Electronically Filed Date Reported: APR 24, 2024 Report: This is an outside Imaging study and/or report imported for continuity of patient care. This Imaging study and/or report was not reviewed or verified by a [place] Radiologist. Impression: This is an outside Imaging study and/or report imported for continuity of patient care. This Imaging study and/or report was not reviewed or verified by a [place] Radiologist. Primary Diagnostic Code: VERIFIED BY: / [...] the Encounter. The data comes from all [place] treatment facilities. Date/Time Pathology Report Provider Source Apr 21, 2024 07:28 AM LR MICROBIOLOGY RE PORT: Reporting Lab: [facility] [CLIA# [id number]] [place] [address] Accession [UID]: [id number] [[id number]] Received: Apr 21, 2024@08:16 Collection sample: URINE Collection date: Apr 21, 2024 07:28 Provider: ANANDA HUGGINS Comment on specimen: RECEIVED IN STERILE CUP Test(s) ordered: CULTURE & SUSCEPTIBILITY...... completed: Apr 22, 2024 * BACTERIOLOGY FINAL REPORT => Apr 22, 2024 08:38 TECH CODE: [id number] CULTURE RESULTS: NO GROWTH 24 HOURS Bacteriology Remark(s): THIS REPORT IS FINAL =--=--=--=--=--=--=--=--=--=--=--=- -=--=--=--=--=--=--=--=--=--=--=--= --=--=-- Performing Laboratory: Bacteriology Report Performed By: [facility] [CLIA# [id number]] [place] [address] [facility] Encounter Notes: All associated [...] SURGEON, COLON/RECTAL Signed: 04/24/2024 16:48 PALMIRA POWELL [facility]
--- OUTSIDE RECORDS SUMMARY | 2024-07-16 07:10 | XMS_ITS ---
[place] DAILY HOSPITALIZATION DATA [facility] HCS Encounter Summary Created on: July 16, 2024 FLACA WEAVER : 1950 Sex: Male Author Name [facility] Organization [facility] Address [address] [place] [address] Care Team Providers Care Bridge Builder Name Role Phone JATINDER BENITEZ Primary [...] PART A Sep 29, 2016 PART A [id number] [phone] JUDY WEAVER PATIENT Selected Encounter This section includes the information on record at [place] for the Encounter. Date/Time Encounter Type Encounter Description Reason Pro vider Source Apr 24, 2024 03:59 PM Inpatient Visit DAILY HOSPITALIZATION DATA [facility] Encounter Template Text not used by SD [...] [facility] Jun 08, 2024 01:15 PM AMBULATORY [place]IC[place] [facility] Jun 08, 2024 01:45 PM AMBULATORY - SURGERY [place] [facility] Active, Pending, and Scheduled Orders This section includes a listing of several types of active, pending, and scheduled orders, including clinic medications orders, diagnostic test orders, procedure orders and consult orders; where the start date of the order is 45 days before the date of the Encounter or 45 days after the date of theEncounter. The data comes from all [place] treatment facilities. Test Date/Time Test Type Test [...] - LAB BLOOD SP [facility] Jun 08, 2024 09:57 AM Laboratory - Chemistry Order URINALYSIS URINE WC ONCE [facility] Lab Results: +/- 30 [...] 2024 08:34 AM Reporting Lab: [facility] [id number] Performing Lab: [facility] [address] CREATININE 0.9 mg/dL 0.7-1.2 UREA NITROGEN 18 [...] 2024 12:52 PM Reporting Lab: [facility] [address] Performing Lab: [facility] [address] CREATININE 0.7 mg/dL 0.7-1.2 UREA NITROGEN 13 [...] 2024 02:50 PM Reporting Lab: [facility] [address] Performing Lab: [facility] [address] CREATININE 0.7 mg/dL 0.7-1.2 UREA NITROGEN 15 [...] 2024 05:04 PM Reporting Lab: [facility] [address] Performing Lab: [facility] [address] CREATININE 0.7 mg/dL 0.7-1.2 UREA NITROGEN 15 [...] 2024 12:37 PM Reporting Lab: [facility] [address] Performing Lab: [facility] [address] CREATININE 0.7 mg/dL 0.7-1.2 UREA NITROGEN 14 [...] 2024 12:37 PM Reporting Lab: [facility] [address] Performing Lab: [facility] [address] CREATININE 0.7 mg/dL 0.7-1.2 UREA NITROGEN 16 [...] Critical Value Reported To: Cait Zamorano RN 04-24-24@[address] [place] [address]. Critical value report confirmed. Ordering Provider: AARON VICTOR Report Released Date/Time: Apr 23, 2024 05:30 PM Reporting Lab: [facility] [address] Performing Lab: [facility] [address] CREATININE 0.7 mg/dL 0.7-1.2 UREA NITROGEN 16 [...] 2024 05:30 PM Reporting Lab: [facility] [address] Performing Lab: [facility] [address] WBC 10.49 10*3/uL 4.0-11.0 RBC 3.83 10*6/uL [...] 2024 12:05 PM Reporting Lab: [facility] [address] Performing Lab: [facility] [address] LACTIC ACID 1.5 mmol/L 0.5-2.2 Apr 23, 2024 01:[address] [facility] PROTHROMBIN TIME/INR Specimen Type: PLASMA No comment entered. Ordering Provider: AARON VICTOR Report Released Date/Time: Apr 23, 2024 12:05 PM Reporting Lab: [facility] [address] Performing Lab: [facility] [address] .INR 1.2 H 0.8-1.1 .PT 14.5 s H 9.4-12.5 Apr 23, 2024 01:[address] [facility] ACT PART THROMBO TIME Specimen Type: PLASMA No comment entered. Ordering Provider: AARON VICTOR Report Released Date/Time: Apr 23, 2024 12:05 PM Reporting Lab: [facility] [address] Performing Lab: [facility] [address] APTT 29.3 s 25.1-36.5 Apr 23, 2024 01:[address] [facility] COMPREHENSIVE METABOLIC PANEL+MG Specimen Type: PLASMA No comment entered. Ordering Provider: AARON VICTOR Report Released Date/Time: Apr 23, 2024 12:05 PM Reporting Lab: [facility] [address] Performing Lab: [facility] [address] CREATININE 0.7 mg/dL 0.7-1.2 UREA NITROGEN 19 [...] 2024 12:05 PM Reporting Lab: [facility] [address] Performing Lab: [facility] [address] WBC 12.50 10*3/uL H 4.0-11.0 RBC 4.07 [...] URINE No comment entered. Ordering Provider: ANANDA HUGGNIS Report Released Date/Time: Apr 21, 2024 07:37 AM Reporting Lab: [facility] [address] Performing Lab: [facility] [address] URINE COLOR COLORLESS SPECIFIC GRAVITY 1.009 1.003-1.03 [...] Source Apr 24, 2024 10:48 PM 5 [facility] Apr 24, 2024 06:35 PM 5 [facility] Apr 24, 2024 04:00 PM 59 147/71 14 0 [facility] Apr 24, 2024 12:15 PM 0 [facility] Apr 24, 2024 10:12 AM 4 [facility] Social History: Smoking Status (Most [...] FISTULOGRAM / S INOGRAM (P): MEGFLACADARCI LOBO [id number] -1950 M Exm Date: MAY 11, 2024@12:39 Req Phys: PALMIRA POWELL Loc: [facility] C/R FOLLOW-UP CLINIC (Req' Img Loc: INTERVENTIONAL RADIOLOGY Service: [place] [address] (Case [id number] COMPLETE) IR INJECTION FOR SINOGRAM DIAGNOS(ANI Detailed) CPT:83025 Contrast Media : Non-ionic Iodinated Reason for Study: s/p drain placement for diverticular abscess- assess for drain (Case [id number] COMPLETE) IR FISTULOGRAM OR SINOGRAM (ANI Detailed) CPT:19686 Contrast Media : unspecified contrast media (Case [id number] COMPLETE) IR DRAINAGE CATHETER SUPPLY (ANI Detailed) CPT:C1729 Clinical History: [place] IS NOT under investigation for COVID-19 or is COVID-19 negative s/p drain placement for diverticular abscess- assess for drain removal Contact number for responsible provider who can be reached for any questions or notifications of critical findings: [phone] Palmira Powell MD LAST CREATININE 0.7 (05/04/24) Report Status: Verified Date Reported: MAY 11, 2024 Date Verified: MAY 11, 2024 Director Internal Control E-Sig:/ES/AMINTA ESCALONA MD Report: PROCEDURES Abdominal drain [...] Interpreting Staff: AMINTA ESCALONA MD, INTERVENTIONAL RADIOLOGIST (Director Internal Control) /AMINTA VELAZCO [facility] May 11, 2024 11:[address] (AP) ABDOMEN/PE LVIS (P): FLACA WEAVER [id number] -1950 M Exm Date: MAY 11, 2024@11:40 Req Phys: PALMIRA POWELL Loc: [facility] C/R FOLLOW-UP CLINIC (Req' Img Loc: CT IMAGING Service: [place] [address] (Case [id number] COMPLETE) CT (AP) ABDOMEN/PELVIS W CONTRAST(CT Detailed) CPT:27353 Contrast Media : Non-ionic Iodinated Reason for [...] any questions or notifications of critical findings: [phone] Palmira Powell MD LAST 3: Collection DT [...] PLASMA .CREAT EGFR(CKD-E >90 Ref: >=60 Allergies: ([facility]) TERAZOSIN (Mar 13, 2015) Report Status: Verified Date Reported: MAY 11, 2024 Date Verified: MAY 11, 2024 Director Internal Control E-Sig:/ES/LISA PENDLETON MD Report: CT abdomen and [...] Primary Interpreting Staff: LISA PENDLETON MD, RADIOLOGIST (Director Internal Control) /JRT LISA PENDLETON 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 Palmira Powell MD LAST CREATININE 0.7 (04/23/24) Report Status: Verified Date Reported: APR 24, 2024 Date Verified: APR 24, 2024 Director Internal Control E-Sig:/ES/SADIA DEE MD Report: PROCEDURES: Placement of [...] Primary Interpreting Staff: SADIA DEE MD, RADIOLOGIST (Director Internal Control) Primary Interpreting Resident: JEFFREY FLOWER MD, SENIOR RESTAURANT MANAGER /SADIA SNYDER [facility] Apr 24, 2024 02:[address] NEEDLE PLACEMEN T (P): FLACA WEAVER [id number] -1950 M Exm Date: APR 24, 2024@14:11 Req Phys: TAURUS WOOD Loc: 3K04-24-2024@16:07 Im Loc: CT IMAGING Service: PRIMARY CARE [place] [address] (Case [id number] COMPLETE) CT SCAN FOR NEEDLE PLACEMENT (CT Detailed) CPT:54792 Reason for Study: diverticular abscess Clinical History: Report Status: Verified Date Reported: APR 24, 2024 Date Verified: APR 24, 2024 Director Internal Control E-Sig:/ES/SADIA DEE MD Report: PROCEDURES: Placement of [...] Primary Interpreting Staff: SADIA DEE MD, RADIOLOGIST (Director Internal Control) Primary Interpreting Resident: JEFFREY FLOWER MD, SENIOR RESTAURANT MANAGER /SADIA SNYDER [facility] Apr 23, 2024 06:36 AM [facility] CT ABDOMEN/ PELVIS: FLACA WEAVER [id number] -1950 M Ex Date: APR 23, 2024@06:36 Req Phys: MCKAY VICTOR [facility] Loc: 3K04-24-2024@10:25 [facility] Loc: OUTSOURCE CT Service: Unknown (Case [id number] COMPLETE) NON [place] CT ABDOMEN/PELVIS (CT Detailed) CPT:04403 Reason for Study: OUTSIDE STUDY Clinical History: [...] PORT: Reporting Lab: [facility] [CLIA# [id number]] [place] [address] Accession [UID]: [id number] [[id number]] Received: Apr 21, 2024@08:16 Collection sample: URINE Collection date: Apr 21, 2024 07:28 Provider: ANANDA HUGGINS Comment on specimen: RECEIVED IN STERILE CUP Test(s) ordered: CULTURE & SUSCEPTIBILITY...... completed: Apr 22, 2024 * BACTERIOLOGY FINAL REPORT => Apr 22, 2024 08:38 TECH CODE: [id number] CULTURE RESULTS: NO GROWTH 24 HOURS Bacteriology Remark(s): THIS REPORT IS FINAL =--=--=--=--=--=--=--=--=--=--=--=- -=--=--=--=--=--=--=--=--=--=--=--= --=--=-- Performing Laboratory: Bacteriology Report Performed By: [facility] [CLIA# [id number]] [place] [address] [facility]
--- OUTSIDE RECORDS SUMMARY | 2024-07-16 07:10 | XMS_ITS ---
[place] DAILY HOSPITALIZATION DATA [facility] Encounter Summary Created on: July 16, 2024 FLACA WEAVER : 1950 Sex: Male Author Name [facility] [place] [facility] [place] [facility] [place] Address [address] [place] [address] Care Team Providers Care Physical Therapy Aide Name Role Phone JATINDER BENITEZ Primary Care [...] PART A Sep 29, 2016 PART A [id number] [phone] JUDY WEAVER PATIENT Selected Encounter This section includes the information on record at [place] for the Encounter. Date/Time Encounter Type Encounter Description Reason Pro vider Source Apr 25, 2024 01:26 AM Inpatient Visit DAILY HOSPITALIZATION DATA [facility] Encounter Template Text not used by [place] Plan of Treatment: Future Appointments (+ 6 months) and Future Tests (+/- 45 days) The Plan of Treatment section includes future care activities for the patient from all [place] treatmentfacilities. This section includes future appointments and future orders which are active, pending or scheduled. Future Appointments This section includes appointments that were scheduled to occur 6 months from the date of the Encounter, up to a maximum of 20 appointments. The data comes from all [place] treatment facilities. Appointment Date/Time Appointment Type Appointme nt Facility Name Apr 27, 2024 02:30 PM AM[facility]ORY [place] NONE [place] [facility] May 02, 2024 10:00 AM AMBULATORY - SURGERY [place] [facility] May 04, 2024 09:00 AM AMBULATORY - NONE [place] [facility] May 07, 2024 08:45 AM AMBULATORY [place]ICINE [place] [facility] May 08, 2024 02:00 PM AMBULATORY - NONE [place] [facility] May 09, 2024 07:30 AM AMBULATORY [place] SURGERY [place] [facility] May 11, 2024 01:00 PM AMBULATORY - NONE [place] [facility] May 11, 2024 03:30 PM AMBULATORY - NONE [place] [facility] May 15, 2024 08:30 AM [place]ORY [place]ICINE [place] [facility] May 16, 2024 07:45 AM AMBULATORY [place] SURGERY [place] [facility] May 22, 2024 07:30 AM AMBULATORY - NONE [place] [facility] May 22, 2024 05:30 PM AMBULATORY - NONE [place] [facility] May 25, 2024 08:22 AM AMBULATORY - NONE [place] [facility] May 25, 2024 09:00 AM AMBULATORY - NONE [place] [facility] May 28, 2024 08:15 AM AMBULATORY - SURGERY [place] [facility] Jun 04, 2024 11:30 AM AMBULATORY - NONE [place] [facility] Jun 08, 2024 11:00 AM AMBULATORY - SURGERY [place] [facility] Jun 08, 2024 12:45 PM AMBULATORY - NONE [place] [facility] Jun 08, 2024 01:15 PM AMBULATORY - MEDICINE [place] [facility] Jun 08, 2024 01:45 PM AMBULATORY - SURGERY [place] [facility] Active, Pending, and Scheduled Orders This section includes a listing of several types of active, pending, and scheduled orders, including clinic medications orders, diagnostic test orders, procedure orders and consult orders; where the start date of the order is 45 days before the date of the Encounter or 45 days after the date of theEncounter. The data comes from all [place] treatment facilities. Test Date/Time Test Type Test Details Facility Name Apr 26, 2024 10:10 AM Laboratory - Microbiology Order GRAM STAIN WOUND OTHER WC ONCE ~For Test: GRAM STAIN ~JUAN drain culture/gram stain [facility] Apr 26, 2024 10:10 AM Laboratory - Microbiology Order CULTURE & SUSCEPTIBILITY WOUND OTHER WC ONCE ~For Test: CULTURE & SUSCEPTIBILITY ~Culture sample from JUAN drain output [facility] May 28, 2024 12:00 AM Laboratory - Blood Bank Order TYPE & SCREEN - LAB BLOOD SP [facility] Jun 08, 2024 09:57 AM Laboratory - Chemistry Order URINALYSIS URINE WC ONCE [facility] Lab Results: +/- 30 days of [...] Range Comment May 21, 2024 06:59 AM [facility] BASIC METABOLIC PANEL+MG Specimen Type: PLASMA No comment entered. Ordering Provider: GOLDIE BENITEZ Report Released Date/Time: May 15, 2024 08:34 AM Reporting Lab: [facility] [phone] Performing Lab: [facility] [phone] CREATININE 0.9 mg/dL 0.7-1.2 UREA NITROGEN 18 mg/dL 8-26 GLUCOSE 126 mg/dL H 70-100 SODIUM 138 mmol/L 136-145 POTASSIUM 4.0 mmol/L 3.5-5.1 CHLORIDE 105 mmol/L 98-107 CO2 24 mmol/L 22-29 CALCIUM 9.8 mg/dL 8.4-10.2 MAGNESIUM 2.0 mg/dL 1.6-2.6 ANION GAP 9 mmol/L 5-15 .CREAT EGFR(CKD-EPI) >90 >60 May 04, 2024 08:36 AM [facility] BASIC METABOLIC PANEL+MG Specimen Type: PLASMA No comment entered. Ordering Provider: GOLDIE BENITEZ Report Released Date/Time: May 03, 2024 12:52 PM Reporting Lab: [facility] [phone] Performing Lab: [facility] [phone] CREATININE 0.7 mg/dL 0.7-1.2 UREA NITROGEN 13 mg/dL 8-26 GLUCOSE 91 mg/dL 70-100 SODIUM 141 mmol/L 136-145 POTASSIUM 3.6 mmol/L 3.5-5.1 CHLORIDE 109 mmol/L H 98-107 CO2 25 mmol/L 22-29 CALCIUM 8.9 mg/dL 8.4-10.2 MAGNESIUM 2.0 mg/dL 1.6-2.6 ANION GAP 7 mmol/L 5-15 .CREAT EGFR(CKD-EPI) >90 >60 Apr 26, 2024 07:16 AM [facility] BASIC METABOLIC PANEL+MG Specimen Type: PLASMA No comment entered. Ordering Provider: JONO RANDOLPH Report Released Date/Time: Apr 25, 2024 02:50 PM Reporting Lab: [facility] [phone] Performing Lab: [facility] [address] CREATININE 0.7 mg/dL 0.7-1.2 UREA NITROGEN 15 mg/dL 8-26 GLUCOSE 106 mg/dL H 70-100 SODIUM 139 mmol/L 136-145 POTASSIUM 3.4 mmol/L L 3.5-5.1 CHLORIDE 105 mmol/L 98-107 CO2 25 mmol/L 22-29 CALCIUM 8.5 mg/dL 8.4-10.2 MAGNESIUM 2.2 mg/dL 1.6-2.6 ANION GAP 9 mmol/L 5-15 .CREAT EGFR(CKD-EPI) >90 >60 Apr 25, 2024 05:10 PM [facility] BASIC METABOLIC PANEL+MG Specimen Type: PLASMA No comment entered. Ordering Provider: GIOVANNI ADLER Report Released Date/Time: Apr 25, 2024 05:04 PM Reporting Lab: [facility] [address] Performing Lab: [facility] [address] CREATININE 0.7 mg/dL 0.7-1.2 UREA NITROGEN 15 mg/dL 8-26 GLUCOSE 104 mg/dL H 70-100 SODIUM 139 mmol/L 136-145 POTASSIUM 3.2 mmol/L L 3.5-5.1 CHLORIDE 103 mmol/L 98-107 CO2 28 mmol/L 22-29 CALCIUM 8.5 mg/dL 8.4-10.2 MAGNESIUM 2.2 mg/dL 1.6-2.6 ANION GAP 8 mmol/L 5-15 .CREAT EGFR(CKD-EPI) >90 >60 Apr 25, 2024 07:46 AM [facility] BASIC METABOLIC PANEL+MG Specimen Type: PLASMA No comment entered. Ordering Provider: GIOVANNI ADLER Report Released Date/Time: Apr 24, 2024 12:37 PM Reporting Lab: [facility] [phone] Performing Lab: [facility] [address] CREATININE 0.7 mg/dL 0.7-1.2 UREA NITROGEN 14 mg/dL 8-26 GLUCOSE 127 mg/dL H 70-100 SODIUM 139 mmol/L 136-145 POTASSIUM 2.9 mmol/L L 3.5-5.1 CHLORIDE 101 mmol/L 98-107 CO2 29 mmol/L 22-29 CALCIUM 8.7 mg/dL 8.4-10.2 MAGNESIUM 2.3 mg/dL 1.6-2.6 ANION GAP 9 mmol/L 5-15 .CREAT EGFR(CKD-EPI) >90 >60 Apr 24, 2024 04:42 PM [facility] BASIC METABOLIC PANEL+MG Specimen Type: PLASMA No comment entered. Ordering Provider: GIOVANNI ADLER Report Released Date/Time: Apr 24, 2024 12:37 PM Reporting Lab: [facility] [phone] Performing Lab: [facility] [address] CREATININE 0.7 mg/dL 0.7-1.2 UREA NITROGEN 16 mg/dL 8-26 GLUCOSE 97 mg/dL 70-100 SODIUM 138 mmol/L 136-145 POTASSIUM 2.7 mmol/L L 3.5-5.1 CHLORIDE 99 mmol/L 98-107 CO2 30 mmol/L H 22-29 CALCIUM 8.4 mg/dL 8.4-10.2 MAGNESIUM 2.1 mg/dL 1.6-2.6 ANION GAP 9 mmol/L 5-15 .CREAT EGFR(CKD-EPI) >90 >60 Apr 24, 2024 07:36 AM [facility] BASIC METABOLIC PANEL+MG Specimen Type: PLASMA Comment: Critical Value Reported To: Cait Zamorano RN 04-24-24@[address] [place] [address]. Critical value report confirmed. Ordering Provider: AARON VICTOR Report Released Date/Time: Apr 23, 2024 05:30 PM Reporting Lab: [facility] [phone] Performing Lab: [facility] [address] CREATININE 0.7 mg/dL 0.7-1.2 UREA NITROGEN 16 mg/dL 8-26 GLUCOSE 105 mg/dL H 70-100 SODIUM 138 mmol/L 136-145 POTASSIUM 2.3 mmol/L LL 3.5-5.1 CHLORIDE 98 mmol/L 98-107 CO2 29 mmol/L 22-29 CALCIUM 8.3 mg/dL L 8.4-10.2 MAGNESIUM 2.2 mg/dL 1.6-2.6 ANION GAP 11 mmol/L 5-15 .CREAT EGFR(CKD-EPI) >90 >60 Apr 24, 2024 07:35 AM [facility] CBC & DIFF Specimen Type: BLOOD Comment: Automated Differential Performed Ordering Provider: AARON VICTOR Report Released Date/Time: Apr 23, 2024 05:30 PM Reporting Lab: [facility] [address] Performing Lab: [facility] [phone] WBC 10.49 10*3/uL 4.0-11.0 RBC 3.83 10*6/uL [...] 10*3/uL 0-0.1 Apr 23, 2024 01:20 PM [facility] LACTIC ACID Specimen Type: PLASMA No comment entered. Ordering Provider: AARON VICTOR Report Released Date/Time: Apr 23, 2024 12:05 PM Reporting Lab: [facility] [address] Performing Lab: [facility] [address] LACTIC ACID 1.5 mmol/L 0.5-2.2 Apr 23, 2024 01:20 PM [facility] PROTHROMBIN TIME/INR Specimen Type: PLASMA No comment entered. Ordering Provider: AARON VICTOR Report Released Date/Time: Apr 23, 2024 12:05 PM Reporting Lab: [facility] [address] Performing Lab: [facility] [address] .INR 1.2 H 0.8-1.1 .PT 14.5 s H 9.4-12.5 Apr 23, 2024 01:20 PM [facility] ACT PART THROMBO TIME Specimen Type: PLASMA No comment entered. Ordering Provider: AARON VICTOR Report Released Date/Time: Apr 23, 2024 12:05 PM Reporting Lab: [facility] [address] Performing Lab: [facility] [address] APTT 29.3 s 25.1-36.5 Apr 23, 2024 01:20 PM [facility] COMPREHENSIVE METABOLIC PANEL+MG Specimen Type: PLASMA No comment entered. Ordering Provider: AARON VICTOR Report Released Date/Time: Apr 23, 2024 12:05 PM Reporting Lab: [facility] [address] Performing Lab: [facility] [address] CREATININE 0.7 mg/dL 0.7-1.2 UREA NITROGEN 19 [...] >90 >60 Apr 23, 2024 01:20 PM [facility] CBC & DIFF Specimen Type: BLOOD Comment: Automated Differential Performed Ordering Provider: AARON VICTOR Report Released Date/Time: Apr 23, 2024 12:05 PM Reporting Lab: [facility] [address] Performing Lab: [facility] [address] WBC 12.50 10*3/uL H 4.0-11.0 RBC 4.07 [...] 10*3/uL 0-0.1 Apr 21, 2024 07:28 AM [facility] URINALYSIS Specimen Type: URINE No comment entered. Ordering Provider: ANANDA HUGGINS Report Released Date/Time: Apr 21, 2024 07:37 AM Reporting Lab: [facility] [address] Performing Lab: [facility] [address] URINE COLOR COLORLESS SPECIFIC GRAVITY 1.009 1.003-1.03 [...] Source Apr 25, 2024 08:51 PM 5 [facility] Apr 25, 2024 08:50 PM 5 [facility] Apr 25, 2024 04:53 PM 6 [facility] Apr 25, 2024 04:11 PM 6 [facility] Apr 25, 2024 11:59 AM 6 [facility] Social History: Smoking Status [...] facilities. Date/Time Radiology Report Provider Source May 25, 2024 09:00 AM IR FISTULOGRAM OR SINOGRAM : FLACA WEAVER [id number] -1950 M Exm Date: MAY 25, 2024@09:00 Req Phys: AMINTA ESCALONA Loc: [facility] INTERVENTIONAL RADIO Img Loc: INTERVENTIONAL RADIOLOGY Service: [place] [address] (Case [id number] COMPLETE) IR FISTULOGRAM OR SINOGRAM (ANI Detailed) CPT:21671 Contrast Media : unspecified contrast media Reason for Study: s/p drain placement for diverticular abscess- assess for drain Clinical History: IS NOT under investigation for COVID-19 or is COVID-19 negative 2 week follow up per Dr Escalona Contact number for responsible provider who can be reached for any questions or notifications of critical findings: [phone] LAST 3: Collection DT Specimen Test Name Result Units Ref Range 05/04/2024 08:36 PLASMA CREATININE 0.7 mg/dL 0.7 - 1.2 04/26/2024 05:30 PLASMA CREATININE 0.7 mg/dL 0.7 - 1.2 04/25/2024 17:10 PLASMA CREATININE 0.7 mg/dL 0.7 - 1.2 05/04/2024 08:36 PLASMA .CREAT EGFR(CKD-E >90 Ref: >=60 04/26/2024 05:30 PLASMA .CREAT EGFR(CKD-E >90 Ref: >=60 04/25/2024 17:10 PLASMA .CREAT EGFR(CKD-E >90 Ref: >=60 Allergies: No data available for: .BERMUDA GRASS IGE .ORCHARD GRASS IGE .RED TOP GRASS IGE .COMMON RAGWEED IGE .GIANT RAGWEED IGE .ROUGH MAR ELDER IGE .MAPLE BOX ELDER,IGE .BIRCH IGE .OAK IGE .ELM IGE .CAT DANDER IGE .DOG DANDER IGE .CLAD HERBARUM IGE .ASPER FUMIGATUS IGE .ALTER ALTERNATA IGE .H DUST(H-ST) IGE .D.PTERONYSSINUS IGE .COCKROACH IGE Report Status: Verified Date Reported: MAY 25, 2024 Date Verified: MAY 25, 2024 Director Digital Advertising E-Sig:/ES/DAVID BURNS MD Report: PROCEDURES 05/25/2024 9:48 AM: 1. Sinogram CLINICAL HISTORY: Perforated sigmoid diverticulitis status post drain placement. No significant drain output over the last week. COMPARISONS: Same day CT Staff Radiologist: David Burns MD Medications: None Dose (RP): 47.79, mGy/Fluoro Time: 1.15, min/DAP: 70.7, dGy.cm? CONTRAST: 5 mL PROCEDURE: Contrast injected through existing drain. No fistula communication. Findings discussed with colorectal surgery. Drain cut and removed over a Glidewire. Impression: 1. No residual fistula. 2. Drain removed. Primary Interpreting Staff: DAVID BURNS MD, RADIOLOGIST (Director Digital Advertising) /CSS DAVID BURNS [facility] May 25, 2024 08:[address] (AP) ABDOMEN/PELVIS (P): FLACA WEAVER [id number] -1950 M Exm Date: MAY 25, 2024@08:23 Req Phys: DAVID BURNS Pat Loc: [facility] INTERVENTIONAL RADIO Img Loc: CT IMAGING Service: [place] [address] (Case [id number] COMPLETE) CT (AP) ABDOMEN/PELVIS W/O CONTRA(CT Detailed) CPT:40575 Reason for Study: assess abscess and possible drain removal Clinical History: no contrast per venancio Per Joint Commission Standards, by signing this diagnostic imaging request the ordering provider confirms they have considered patients age and recent imaging history. Defer to radiologist for final CT protocol. Contact number for responsible provider who can be reached for any questions or notifications of critical findings: [phone] LAST 3: Collection DT Specimen Test Name Result Units Ref Range 05/21/2024 06:59 PLASMA CREATININE 0.9 mg/dL 0.7 - 1.2 05/04/2024 08:36 PLASMA CREATININE 0.7 mg/dL 0.7 - 1.2 04/26/2024 05:30 PLASMA CREATININE 0.7 mg/dL 0.7 - 1.2 05/21/2024 06:59 PLASMA .CREAT EGFR(CKD-E >90 Ref: >=60 05/04/2024 08:36 PLASMA .CREAT EGFR(CKD-E >90 Ref: >=60 04/26/2024 05:30 PLASMA .CREAT EGFR(CKD-E >90 Ref: >=60 Allergies: ([place] only) TERAZOSIN (Mar 13, 2015) Report Status: Verified Date Reported: MAY 25, 2024 Date Verified: MAY 25, 2024 Director Digital Advertising E-Sig:/ES/JESSENIA GOODMAN MD Report: EXAM: CT abdomen and pelvis without intravenous contrast. 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 TECHNIQUE: Helical acquisition of image data was performed for the abdomen and pelvis without intravenous contrast. Dose: 512.57 mGy*cm COMPARISON: CT abdomen pelvis with contrast 05/11/[address] abdomen pelvis 04/23/2024.; CT abdomen pelvis 05/05/2020 FINDINGS: SENIOR WATER/WASTEWATER ENGINEER: Pigtail catheter projecting over the left hemipelvis LOWER CHEST: Small pericardial effusion. Minimal bibasilar atelectasis. No consolidation. No pleural effusion. No pneumothorax. Distal esophageal wall thickening and a small esophageal hiatal hernia. Hepatobiliary: Stable presumed hepatic cyst at the hepatic dome (5/28) and subcentimeter hypoattenuating focus within hepatic segment , which is too small to characterize although also likely a cyst (5/158). No intra or extrahepatic biliary dilation. No calcified gallstones. SPLEEN: Normal size spleen. Multiple splenules. PANCREAS: Pancreatic parenchymal atrophy. Stable 15 mm hypoattenuating focus within the pancreatic tail is (series 5, image 88). Normal caliber main pancreatic duct. ADRENAL GLANDS: Stable 16 mm left adrenal nodule with density measuring 5 Hounsfield units consistent with a benign left adrenal adenoma (5/110). No right adrenal nodules. GENITOURINARY: No hydronephrosis. Stable right renal cortical defect within the mid/superior pole, (series 5, image 167), unchanged. Stable 3 mm nonobstructing right lower pole renal calculus (series 5, image 190). Bilateral renovascular calcifications. Persistent although slightly improved concentric urinary bladder wall thickening with mild perivesical stranding. Persistent mild stranding about the drainage catheter and urinary bladder. Prostate gland is enlarged measuring 4.5 cm in transverse dimension with a right posterolateral focal calcification. Tracey catheter from the prior images has been removed. GASTROINTESTINAL: Incidental note of a 10 mm duodenal lipoma (/179). Portions of the colon extend anterior to the right hepatic lobe (/72). Colonic diverticulosis. Stable mild inflammatory changes and small amount of fluid adjacent to the sigmoid colon in this patient status post drainage catheter placement as described below. Negative appendix. LYMPH NODES: No enlarged abdominopelvic nodes. MAJOR VESSELS: Vascular patency not assessed on today's noncontrast exam. Normal caliber abdominal aorta. Moderate to severe aortoiliac atherosclerotic vascular calcifications. Stable bilateral common iliac artery aneurysms measuring up to 2.0 cm on the right and 2.1 cm on the left cm (, ). ADDITIONAL ABDOMINOPELVIC FINDINGS: Left anterior approach percutaneous drainage catheter with formed loop within the left anterior pelvis located adjacent to the sigmoid colon and urinary bladder at the site of the prior complex collection on prior exam 04/23/2024. There may be a small amount of residual fluid located superior to the formed drainage catheter loop (for example as seen on series 5, image 295). Stable linear stranding extending in the region of the formed catheter balloon and urinary bladder/sigmoid colon, with fistulous communication not excluded (for example as seen on series 6, image [id number]). No new drainable fluid collection. No evidence of macro perforation. Pelvic phleboliths. BONE AND SOFT TISSUE: Moderate to severe degenerative changes throughout the visualized spine most significant at L2-L3 through L5-S1. Degenerative changes of the femoroacetabular and celiac joints with partial fusion of the SI joints. Degenerative changes at the pubic symphysis. Stable lucent focus within the left 8th rib, likely benign given stability since prior exam 05/05/2020 (01/19). Tiny fat-containing umbilical hernia. Impression: 1. Overall, no significant change since prior exam 05/11/2024. No new drainable fluid collection. No evidence of macro perforation. 2. Stable position percutaneous drainage catheter with formed loop in the left hemipelvis at the site of prior pericolonic abscess/fistula with a small residual amount of fluid superior to the drainage catheter site and persistent mild stranding/inflammatory changes about the sigmoid colon and urinary bladder for which fistulous communication would be be difficult to entirely exclude. Of note, no intraluminal air within the urinary bladder on today's exam. 3. Persistent although slightly improved concentric urinary bladder wall thickening with mild perivesical stranding. Correlate clinical symptoms and laboratory findings. 4. Stable nonobstructing 3 mm right lower pole renal calculus. 5. Stable 15 mm hypoattenuated focus within the pancreatic tail, which has not significant changed since prior exam 05/05/2020 and may represent a side branch type IPMN (versus sequela prior pancreatitis). Recommend continued annual surveillance with CT or MRI in one year. 6. Stable bilateral common iliac artery aneurysms measuring up to 2.0 cm on the right and 2.1 cm on the left. I, Jessenia Goodman, have reviewed the images and report. Primary Interpreting Staff: JESSENIA GOODMAN MD, RADIOLOGIST (Director Digital Advertising) Primary Interpreting Resident: YOHANNES MELO DO, JAVASCRIPT PROGRAMMER /JESSENIA LOUIE [facility] May 11, 2024 12:39 PM IR FISTULOGRAM / SINOGRAM (P): FLACA WEAVER [id number] -1950 M Exm Date: MAY 11, 2024@12:39 Req Phys: PALMIRA POWELL Loc: [facility] C/R FOLLOW-UP [facility] (Req' Img Loc: INTERVENTIONAL RADIOLOGY Service: [place] [address] (Case [id number] COMPLETE) IR INJECTION FOR SINOGRAM DIAGNOS(ANI Detailed) CPT:49325 Contrast Media : Non-ionic Iodinated Reason for Study: s/p drain placement for diverticular abscess- assess for drain (Case [id number] COMPLETE) IR FISTULOGRAM OR SINOGRAM (ANI Detailed) CPT:29285 Contrast Media : unspecified contrast media (Case [id number] COMPLETE) IR DRAINAGE CATHETER SUPPLY (ANI Detailed) CPT:C1729 Clinical History: IS NOT under investigation for COVID-19 or is COVID-19 negative s/p drain placement for diverticular abscess- assess for drain removal Contact number for responsible provider who can be reached for any questions or notifications of critical findings: [phone] Palmira Powell MD LAST CREATININE 0.7 (05/04/24) Report Status: Verified Date Reported: MAY 11, 2024 Date Verified: MAY 11, 2024 Director Digital Advertising E-Sig:/ES/AMINTA ESCALONA MD Report: PROCEDURES Abdominal drain check CLINICAL HISTORY: Diverticular abscess COMPARISONS: 04/23/2024, 04/24/2024, 05/11/2024 STAFF RADIOLOGIST: Aminat Escalona MD Dose (Air Kerma): 9.2 mGy [...] Staff: AMINTA ESCALONA MD, INTERVENTIONAL RADIOLOGIST (Director Digital Advertising) /AMINTA VELAZCO [facility] May 11, 2024 11:[address] (AP) ABDOMEN/PELVIS (P): FLACA WEAVER [id number] -1950 M Exm Date: MAY 11, 2024@11:40 Req Phys: PALMIRA POWELL Loc: [facility] (Req' Img Loc: CT IMAGING Service: [place] [address] (Case [id number] COMPLETE) CT (AP) ABDOMEN/PELVIS W CONTRAST(CT Detailed) CPT:48425 Contrast Media : Non-ionic Iodinated Reason for [...] any questions or notifications of critical findings: [phone] Palmira Powell MD LAST 3: Collection DT [...] PLASMA .CREAT EGFR(CKD-E >90 Ref: >=60 Allergies: ([place] only) TERAZOSIN (Mar 13, 2015) Report Status: Verified Date Reported: MAY 11, 2024 Date Verified: MAY 11, 2024 Director Digital Advertising E-Sig:/ES/LISA PENDLETON MD Report: CT abdomen and [...] Interpreting Staff: LISA PENDLETON MD, RADIOLOGIST (Director Digital Advertising) /JRT LISA PENDLETON [facility] Apr 24, 2024 02:13 PM ABSCESS DRAIN PLACEMENT PERITONEAL (P): FLACA WEAVER [id number] -1950 M Exm Date: APR 24, 2024@14:13 Req Phys: TAURUS WOOD Loc: 04-24-2024@16:07 Img Loc: INTERVENTIONAL RADIOLOGY Service: [place] [address] (Case [id number] COMPLETE) IR PERITONEAL/RETROPERITONEAL PER(ANI Detailed) CPT:98857 Reason for Study: diverticular abscess Clinical History: IS NOT under investigation for COVID-19 or is COVID-19 negative 73yo M with hx of recurrent diverticulitis, transferred from [facility] 04/[address] 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 Palmira Powell MD LAST CREATININE 0.7 (04/23/24) Report Status: Verified Date Reported: APR 24, 2024 Date Verified: APR 24, 2024 Director Digital Advertising E-Sig:/ES/SADIA DEE MD Report: PROCEDURES: Placement of [...] anesthesia. Using real-time CT fluoroscopy, a 5 Namibian Yueh catheter was advanced into the collection in the left lower quadrant. A wire was coiled in the collection. The tract into the collection was dilated to accommodate the 12 Namibian locking pigtail drainage catheter. The catheter was secured to the skin with monofilament suture and connected to JUAN bulb suction. Impression: Successful placement of a 12 Namibian locking pigtail drainage catheter in the left lower quadrant abscess. This catheter is connected to JUAN bulb suction with flushes, as ordered. I, SADIA DEE, have reviewed the images and report. Primary Interpreting Staff: SADIA DEE MD, RADIOLOGIST (Director Digital Advertising) Primary Interpreting Resident: JEFFREY FLOWER MD, JAVASCRIPT PROGRAMMER /SADIA SNYDER [facility] Apr 24, 2024 02:[address] NEEDLE PLACEMENT (P): FLACA WEAVER [id number] -1950 M Exm Date: APR 24, 2024@14:11 Req Phys: TAURUS WOOD Loc: 3K04-24-2024@16:07 [facility] Loc: CT IMAGING Service: [place] [address] (Case [id number] COMPLETE) CT SCAN FOR NEEDLE PLACEMENT (CT Detailed) CPT:07745 Reason for Study: diverticular abscess Clinical History: Report Status: Verified Date Reported: APR 24, 2024 Date Verified: APR 24, 2024 Director Digital Advertising E-Sig:/ES/SADIA DEE MD Report: PROCEDURES: Placement of [...] anesthesia. Using real-time CT fluoroscopy, a 5 Namibian Yueh catheter was advanced into the collection in the left lower quadrant. A wire was coiled in the collection. The tract into the collection was dilated to accommodate the 12 Namibian locking pigtail drainage catheter. The catheter was secured to the skin with monofilament suture and connected to JUAN bulb suction. Impression: Successful placement of a 12 Namibian locking pigtail drainage catheter in the left lower quadrant abscess. This catheter is connected to JUAN bulb suction with flushes, as ordered. I, SADIA DEE, have reviewed the images and report. Primary Interpreting Staff: SADIA DEE MD, RADIOLOGIST (Director Digital Advertising) Primary Interpreting Resident: JEFFREY FLOWER MD, JAVASCRIPT PROGRAMMER /SADIA SNYDER [facility] Apr 23, 2024 06:[address] ABDOMEN/PELVIS: FLACA WEAVER [id number] -1950 M Ex Date: APR 23, 2024@06:36 Req Phys: MCKAY VICTOR Pat Loc: 3KS/04-24-2024@10:25 [facility] Loc: OUTSOURCE CT Service: Unknown (Case [id number] COMPLETE) NON [place] CT ABDOMEN/PELVIS (CT Detailed) CPT:91934 Reason for Study: OUTSIDE STUDY Clinical History: [...] Diagnostic Code: VERIFIED BY: / *ELECTRONICALLY FILED* [facility] Pathology Reports: +/- 30 days of [...] AM LR MICROBIOLOGY RE PORT: Reporting Lab: [facility] [CLIA# [id number]] [place] [address] Accession [UID]: [id number] [[id number]] Received: Apr 21, 2024@08:16 Collection sample: URINE Collection date: Apr 21, 2024 07:28 Provider: ANANDA HUGGINS Comment on specimen: RECEIVED IN STERILE CUP Test(s) ordered: CULTURE & SUSCEPTIBILITY...... completed: Apr 22, 2024 * BACTERIOLOGY FINAL REPORT => Apr 22, 2024 08:38 TECH CODE: [id number] CULTURE RESULTS: NO GROWTH 24 HOURS Bacteriology Remark(s): THIS REPORT IS FINAL =--=--=--=--=--=--=--=--=--=--=--=- -=--=--=--=--=--=--=--=--=--=--=--= --=--=-- Performing Laboratory: Bacteriology Report Performed By: [facility] [CLIA# [id number]] [place] [address] [facility]
--- OUTSIDE RECORDS SUMMARY | 2024-07-16 07:10 | XMS_ITS ---
[place] DAILY HOSPITALIZATION DATA [facility] HCS Encounter Summary Created on: July 16, 2024 FLACA WEAVER : 1950 Sex: Male Author Name [facility] [place] [facility] [place] Address [address] [place] [address] Care Team Providers Care Law Instructor Name Role Phone JATINDER BENITEZ Primary Care [...] PART A Sep 29, 2016 PART A [id number] [phone] JUDY WEAVER PATIENT Selected Encounter This section [...] 01:15 PM AMBULATORY - [place]ICINE [place] [facility] Jun 08, 2024 01:45 PM AMBULATORY - SURGERY [place] [facility] Active, Pending, and Scheduled Orders This [...] ~JUAN drain culture/gram stain [facility] May 28, 2024 12:00 AM Laboratory - Blood Bank Order TYPE & SCREEN - LAB BLOOD SP [facility] Jun 08, 2024 09:57 AM Laboratory - Chemistry Order URINALYSIS URINE WC ONCE [facility] Lab Results: +/- 30 [...] Range Comment May 21, 2024 06:59 AM [facility] BASIC METABOLIC PANEL+MG Specimen Type: PLASMA No comment entered. Ordering Provider: GOLDIE BENITEZ Report Released Date/Time: May 15, 2024 08:34 AM Reporting Lab: [facility] [address] Performing Lab: [facility] [address] CREATININE 0.9 mg/dL 0.7-1.2 UREA NITROGEN 18 mg/dL 8-26 GLUCOSE 126 mg/dL H 70-100 SODIUM 138 mmol/L 136-145 POTASSIUM 4.0 mmol/L 3.5-5.1 CHLORIDE 105 mmol/L 98-107 CO2 24 mmol/L 22-29 CALCIUM 9.8 mg/dL 8.4-10.2 MAGNESIUM 2.0 mg/dL 1.6-2.6 ANION GAP 9 mmol/L 5-15 .CREAT EGFR(CKD-EPI) >90 >60 May 04, 2024 08:36 AM [facility] BASIC METABOLIC PANEL+MG Specimen Type: PLASMA No comment entered. Ordering Provider: GOLDIE BENITEZ Report Released Date/Time: May 03, 2024 12:52 PM Reporting Lab: [facility] [address] Performing Lab: [facility] [address] CREATININE 0.7 mg/dL 0.7-1.2 UREA NITROGEN 13 mg/dL 8-26 GLUCOSE 91 mg/dL 70-100 SODIUM 141 mmol/L 136-145 POTASSIUM 3.6 mmol/L 3.5-5.1 CHLORIDE 109 mmol/L H 98-107 CO2 25 mmol/L 22-29 CALCIUM 8.9 mg/dL 8.4-10.2 MAGNESIUM 2.0 mg/dL 1.6-2.6 ANION GAP 7 mmol/L 5-15 .CREAT EGFR(CKD-EPI) >90 >60 Apr 26, 2024 07:16 AM [facility] BASIC METABOLIC PANEL+MG Specimen Type: PLASMA No comment entered. Ordering Provider: JONO RANDOLPH Report Released Date/Time: Apr 25, 2024 02:50 PM Reporting Lab: [facility] [address] Performing Lab: [facility] [address] CREATININE 0.7 mg/dL 0.7-1.2 UREA NITROGEN 15 [...] Apr 25, 2024 05:04 PM Reporting Lab: [facility] [address] Performing Lab: [facility] [address] CREATININE 0.7 mg/dL 0.7-1.2 UREA NITROGEN 15 [...] Apr 24, 2024 12:37 PM Reporting Lab: [facility] [address] Performing Lab: [facility] [address] CREATININE 0.7 mg/dL 0.7-1.2 UREA NITROGEN 14 [...] Apr 24, 2024 12:37 PM Reporting Lab: [facility] [address] Performing Lab: [facility] [address] CREATININE 0.7 mg/dL 0.7-1.2 UREA NITROGEN 16 [...] Critical Value Reported To: Cait Zamorano RN 04-24-24@[address] [place] [address]. Critical value report confirmed. Ordering Provider: AARON VICTOR Report Released Date/Time: Apr 23, 2024 05:30 PM Reporting Lab: [facility] [address] Performing Lab: [facility] [address] CREATININE 0.7 mg/dL 0.7-1.2 UREA NITROGEN 16 [...] Apr 23, 2024 05:30 PM Reporting Lab: [facility] [address] Performing Lab: [facility] [address] WBC 10.49 10*3/uL 4.0-11.0 RBC 3.83 10*6/uL [...] Apr 23, 2024 12:05 PM Reporting Lab: [facility] [address] Performing Lab: [facility] [address] LACTIC ACID 1.5 mmol/L 0.5-2.2 Apr 23, 2024 01:20 PM [facility] PROTHROMBIN TIME/INR Specimen Type: PLASMA No comment entered. Ordering Provider: AARON VICTOR Report Released Date/Time: Apr 23, 2024 12:05 PM Reporting Lab: [facility] [address] Performing Lab: [facility] [address] .INR 1.2 H 0.8-1.1 .PT 14.5 s H 9.4-12.5 Apr 23, 2024 01:20 PM [facility] ACT PART THROMBO TIME Specimen Type: PLASMA No comment entered. Ordering Provider: AARON VICTOR Report Released Date/Time: Apr 23, 2024 12:05 PM Reporting Lab: [facility] [address] Performing Lab: [facility] [address] APTT 29.3 s 25.1-36.5 Apr 23, 2024 01:20 PM [facility] COMPREHENSIVE METABOLIC PANEL+MG Specimen Type: PLASMA No comment entered. Ordering Provider: AARON VICTOR Report Released Date/Time: Apr 23, 2024 12:05 PM Reporting Lab: [facility] [address] Performing Lab: [facility] [address] CREATININE 0.7 mg/dL 0.7-1.2 UREA NITROGEN 19 [...] Apr 23, 2024 12:05 PM Reporting Lab: [facility] [address] Performing Lab: [facility] [address] WBC 12.50 10*3/uL H 4.0-11.0 RBC 4.07 [...] Apr 21, 2024 07:37 AM Reporting Lab: [facility] [address] Performing Lab: [facility] [address] URINE COLOR COLORLESS SPECIFIC GRAVITY 1.009 1.003-1.03 [...] Source Apr 25, 2024 08:51 PM 5 [facility] Apr 25, 2024 08:50 PM 5 [facility] Apr 25, 2024 04:53 PM 6 [facility] Apr 25, 2024 04:11 PM 6 [facility] Apr 25, 2024 11:59 AM 6 [facility] Social History: Smoking Status (Most current) and [...] 06, 2023 11:30 AM VA-TOBACCO FORMER USER [facility] Tobacco Use History This [...] The data comes from all [facility]. Date Advance Directives Provider Source Mar 23, [...] IR FISTULOGRAM OR SINOGRAM : FLACA WEAVER [id number] -1950 M Exm Date: MAY 25, 2024@09:00 Req Phys: AMINTA ESCALONA Loc: MSP XRAY INTERVENTIONAL RADIO Img Loc: INTERVENTIONAL RADIOLOGY Service: [place] [address] (Case [id number] COMPLETE) IR FISTULOGRAM OR SINOGRAM (ANI Detailed) CPT:84405 Contrast Media : unspecified contrast media Reason for Study: s/p drain placement for diverticular abscess- assess for drain Clinical History: IS NOT under investigation for COVID-19 or is COVID-19 negative 2 week follow up per Dr Escalona Contact number for responsible provider who can be reached for any questions or notifications of critical findings: [phone] LAST 3: Collection DT Specimen Test [...] 25, 2024 Date Verified: MAY 25, 2024 Senior Estimator E-Sig:/ES/DAVID BURNS MD Report: PROCEDURES 05/25/2024 9:48 [...] Primary Interpreting Staff: DAVID BURNS MD, RADIOLOGIST (Senior Estimator) /CSS DAVID BURNS [facility] May 25, 2024 08:[address] (AP) ABDOMEN/PELVIS (P): FLACA WEAVER [id number] -1950 M Exm Date: MAY 25, 2024@08:23 Req Phys: DAVID BURNS Pat Loc: MSP XRAY INTERVENTIONAL RADIO Img Loc: CT IMAGING Service: [place] [address] (Case [id number] COMPLETE) CT (AP) ABDOMEN/PELVIS W/O CONTRA(CT Detailed) CPT:73777 Reason for Study: assess abscess and possible [...] PLASMA .CREAT EGFR(CKD-E >90 Ref: >=60 Allergies: ([place] only) TERAZOSIN (Mar 13, 2015) Report Status: Verified Date Reported: MAY 25, 2024 Date Verified: MAY 25, 2024 Senior Estimator E-Sig:/ES/JESSENIA GOODMAN MD Report: EXAM: CT abdomen and pelvis without intravenous contrast. 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 TECHNIQUE: Helical acquisition of image data was performed for the abdomen and pelvis without intravenous contrast. Dose: 512.57 mGy*cm COMPARISON: CT abdomen pelvis with contrast 05/11/[address] abdomen pelvis 04/23/2024.; CT abdomen pelvis 05/05/2020 FINDINGS: PYTHON JAVA DEVELOPER: Pigtail catheter projecting over the left hemipelvis [...] Primary Interpreting Staff: JESSENIA GOODMAN MD, RADIOLOGIST (Senior Estimator) Primary Interpreting Resident: YOHANNES MELO DO, BEVERAGE SERVER /JESSENIA LOUIE [facility] May 11, 2024 12:39 PM IR FISTULOGRAM / SINOGRAM (P): FLACA WEAVER [id number] -1950 M Exm Date: MAY 11, 2024@12:39 Req Phys: PALMIRA POWELL Loc: [facility] C/R FOLLOW[facility]UP [facility] (Req' Img Loc: INTERVENTIONAL RADIOLOGY Service: [place] [address] (Case [id number] COMPLETE) IR INJECTION FOR SINOGRAM DIAGNOS(ANI Detailed) CPT:52068 Contrast Media : Non-ionic Iodinated Reason for Study: s/p drain placement for diverticular abscess- assess for drain (Case [id number] COMPLETE) IR FISTULOGRAM OR SINOGRAM (ANI Detailed) CPT:82060 Contrast Media : unspecified contrast media (Case [id number] COMPLETE) IR DRAINAGE CATHETER SUPPLY (ANI Detailed) CPT:C1729 Clinical History: IS NOT under investigation for COVID-19 or is COVID-19 negative s/p drain placement for diverticular abscess- assess for drain removal Contact number for responsible provider who can be reached for any questions or notifications of critical findings: [phone] Palmira Powell MD LAST CREATININE 0.7 (05/04/24) Report Status: Verified Date Reported: MAY 11, 2024 Date Verified: MAY 11, 2024 Senior Estimator E-Sig:/ES/AMINTA ESCALONA MD Report: PROCEDURES Abdominal drain [...] Staff: AMINTA ESCALONA MD, INTERVENTIONAL RADIOLOGIST (Senior Estimator) /AMINTA VELAZCO [facility] May 11, 2024 11:[address] (AP) ABDOMEN/PELVIS (P): FLACA WEAVER [id number] -1950 M Exm Date: MAY 11, 2024@11:40 Req Phys: PALMIRA POWELL Loc: [facility] C/[facility]LLOW-UP [facility]IN[facility] (Req' Img Loc: CT IMAGING Service: [place] [address] (Case [id number] COMPLETE) CT (AP) ABDOMEN/PELVIS W CONTRAST(CT Detailed) CPT:78969 Contrast Media : Non-ionic Iodinated Reason for [...] any questions or notifications of critical findings: [phone] Palmira Powell MD LAST 3: Collection DT [...] PLASMA .CREAT EGFR(CKD-E >90 Ref: >=60 Allergies: ([place] only) TERAZOSIN (Mar 13, 2015) Report Status: Verified Date Reported: MAY 11, 2024 Date Verified: MAY 11, 2024 Senior Estimator E-Sig:/ES/LISA PENDLETON MD Report: CT abdomen and [...] Interpreting Staff: LISA PENDLETON MD, RADIOLOGIST (Senior Estimator) /JRT LISA PENDLETON [facility] Apr 24, 2024 02:13 PM ABSCESS DRAIN PLACEMENT PERITONEAL (P): FLACA WEAVER [id number] -1950 M Exm Date: APR 24, 2024@14:13 Req Phys: TAURUS WOOD Loc: 04-24-2024@16:07 Img Loc: INTERVENTIONAL RADIOLOGY Service: PRIMARY [place] [address] (Case [id number] COMPLETE) IR PERITONEAL/RETROPERITONEAL PER(ANI Detailed) CPT:36124 Reason for Study: diverticular abscess Clinical History: IS NOT under investigation for COVID-19 or is COVID-19 negative 73yo M with hx of recurrent diverticulitis, transferred from [facility] 04/[address] 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 Found to have 2nd degree heart block, planning pacemaker placement Contact number for responsible provider who can be reached for any questions or notifications of critical findings: [phone] If ordering provider is a trainee, enter the name and contact information of the responsible staff physician. Palmira Powell MD LAST CREATININE 0.7 (04/23/24) Report Status: Verified Date Reported: APR 24, 2024 Date Verified: APR 24, 2024 Senior Estimator E-Sig:/ES/SADIA DEE MD Report: PROCEDURES: Placement of [...] anesthesia. Using real-time CT fluoroscopy, a 5 Nigerian Yueh catheter was advanced into the collection in the left lower quadrant. A wire was coiled in the collection. The tract into the collection was dilated to accommodate the 12 Nigerian locking pigtail drainage catheter. The catheter was secured to the skin with monofilament suture and connected to JUAN bulb suction. Impression: Successful placement of a 12 Nigerian locking pigtail drainage catheter in the left lower quadrant abscess. This catheter is connected to JUAN bulb suction with flushes, as ordered. I, SADIA DEE, have reviewed the images and report. Primary Interpreting Staff: SADIA DEE MD, RADIOLOGIST (Senior Estimator) Primary Interpreting Resident: JEFFREY FLOWER MD, BEVERAGE SERVER /SADIA SNYDER [facility] Apr 24, 2024 02:[address] NEEDLE PLACEMENT (P): FLACA WEAVER [id number] -1950 M Exm Date: APR 24, 2024@14:11 Req Phys: TAURUS WOOD Loc: 3K04-24-2024@16:07 [facility] Loc: CT IMAGING Service: PR[place] [address] (Case [id number] COMPLETE) CT SCAN FOR NEEDLE PLACEMENT (CT Detailed) CPT:53517 Reason for Study: diverticular abscess Clinical History: Report Status: Verified Date Reported: APR 24, 2024 Date Verified: APR 24, 2024 Senior Estimator E-Sig:/ES/SADIA DEE MD Report: PROCEDURES: Placement of [...] anesthesia. Using real-time CT fluoroscopy, a 5 Nigerian Yueh catheter was advanced into the collection in the left lower quadrant. A wire was coiled in the collection. The tract into the collection was dilated to accommodate the 12 Nigerian locking pigtail drainage catheter. The catheter was secured to the skin with monofilament suture and connected to JUAN bulb suction. Impression: Successful placement of a 12 Nigerian locking pigtail drainage catheter in the left lower quadrant abscess. This catheter is connected to JUAN bulb suction with flushes, as ordered. I, SADIA DEE, have reviewed the images and report. Primary Interpreting Staff: SADIA DEE MD, RADIOLOGIST (Senior Estimator) Primary Interpreting Resident: JEFFREY FLOWER MD, BEVERAGE SERVER /SADIA SNYDER [facility] Apr 23, 2024 06:[address] ABDOMEN/PELVIS: FLACA WEAVER [id number] -1950 M Ex Date: APR 23, 2024@06:36 Req Phys: MCKAY VICTOR Pat Loc: 3KS/04-24-2024@10:25 [facility] Loc: OUTSOURCE CT Service: Unknown (Case [id number] COMPLETE) NON [place] CT ABDOMEN/PELVIS (CT Detailed) CPT:71292 Reason for Study: OUTSIDE STUDY Clinical History: [...] PORT: Reporting Lab: [facility] [CLIA# [id number]] [place] [address] Accession [UID]: [id number] [[id number]] Received: Apr 21, 2024@08:16 Collection sample: URINE Collection date: Apr 21, 2024 07:28 Provider: ANANDA HUGGINS Comment on specimen: RECEIVED IN STERILE CUP Test(s) ordered: CULTURE & SUSCEPTIBILITY...... completed: Apr 22, 2024 * BACTERIOLOGY FINAL REPORT => Apr 22, 2024 08:38 TECH CODE: [id number] CULTURE RESULTS: NO GROWTH 24 HOURS Bacteriology Remark(s): THIS REPORT IS FINAL =--=--=--=--=--=--=--=--=--=--=--=- -=--=--=--=--=--=--=--=--=--=--=--= --=--=-- Performing Laboratory: Bacteriology Report Performed By: [facility] [CLIA# [id number]] [place] [address] [facility]
--- OUTSIDE RECORDS SUMMARY | 2024-07-16 07:10 | XMS_ITS | Encounter Summary ---
Author Name [facility] [facility] [place] Address [address] [place] [address] Care Team Providers Care Spikemaking Supervisor Name Role Phone JATINDER BENITEZ Primary [...] PART A Sep 29, 2016 PART A [id number] JUDY WEAVER PATIENT Selected Encounter This section [...] perforation and abscess w/o bleeding PALMIRA POWELL [facility] Plan of Treatment: Future Appointments (+ 6 months) and Future Tests (+/- 45 days) The Plan of Treatment section includes future care activities for the patient from all [place] [facility]. This section includes future appointments and future orders which are active, pending or scheduled. Future Appointments This section includes appointments that were scheduled to occur 6 months from the date of the Encounter, up to a maximum of 20 appointments. The data comes from all [facility] facilities. Appointment Date/Time Appointment Type Appointme [...] Test: GRAM STAIN ~JUAN drain culture/gram stain [facility] Apr 26, 2024 10:10 AM Laboratory - Microbiology Order CULTURE & SUSCEPTIBILITY WOUND OTHER WC ONCE ~For Test: CULTURE & SUSCEPTIBILITY ~Culture sample from JUAN drain output [facility] May 28, 2024 12:00 AM Laboratory - Blood Bank Order TYPE & SCREEN - LAB BLOOD SP [facility] Jun 08, 2024 09:57 AM Laboratory - Chemistry Order URINALYSIS URINE WC ONCE [facility] Lab Results: +/- 30 days [...] Range Comment May 21, 2024 06:59 AM [facility] BASIC METABOLIC PANEL+MG Specimen Type: PLASMA No comment entered. Ordering Provider: GOLDIE BENITEZ Report Released Date/Time: May 15, 2024 08:34 AM Reporting Lab: [facility] [id number] Performing Lab: [facility] [phone] CREATININE 0.9 mg/dL 0.7-1.2 UREA NITROGEN 18 mg/dL 8-26 GLUCOSE 126 mg/dL H 70-100 SODIUM 138 mmol/L 136-145 POTASSIUM 4.0 mmol/L 3.5-5.1 CHLORIDE 105 mmol/L 98-107 CO2 24 mmol/L 22-29 CALCIUM 9.8 mg/dL 8.4-10.2 MAGNESIUM 2.0 mg/dL 1.6-2.6 ANION GAP 9 mmol/L 5-15 .CREAT EGFR(CKD-EPI) >90 >60 May 04, 2024 08:36 AM [facility] BASIC METABOLIC PANEL+MG Specimen Type: PLASMA No comment entered. Ordering Provider: GOLDIE BENITEZ Report Released Date/Time: May 03, 2024 12:52 PM Reporting Lab: [facility] [phone] Performing Lab: [facility] [phone] CREATININE 0.7 mg/dL 0.7-1.2 UREA NITROGEN 13 mg/dL 8-26 GLUCOSE 91 mg/dL 70-100 SODIUM 141 mmol/L 136-145 POTASSIUM 3.6 mmol/L 3.5-5.1 CHLORIDE 109 mmol/L H 98-107 CO2 25 mmol/L 22-29 CALCIUM 8.9 mg/dL 8.4-10.2 MAGNESIUM 2.0 mg/dL 1.6-2.6 ANION GAP 7 mmol/L 5-15 .CREAT EGFR(CKD-EPI) >90 >60 Apr 26, 2024 07:16 AM [facility] BASIC METABOLIC PANEL+MG Specimen Type: PLASMA No comment entered. Ordering Provider: JONO RANDOLPH Report Released Date/Time: Apr 25, 2024 02:50 PM Reporting Lab: [facility] [phone] Performing Lab: [facility] [phone] CREATININE 0.7 mg/dL 0.7-1.2 UREA NITROGEN 15 mg/dL 8-26 GLUCOSE 106 mg/dL H 70-100 SODIUM 139 mmol/L 136-145 POTASSIUM 3.4 mmol/L L 3.5-5.1 CHLORIDE 105 mmol/L 98-107 CO2 25 mmol/L 22-29 CALCIUM 8.5 mg/dL 8.4-10.2 MAGNESIUM 2.2 mg/dL 1.6-2.6 ANION GAP 9 mmol/L 5-15 .CREAT EGFR(CKD-EPI) >90 >60 Apr 25, 2024 05:10 PM [facility] BASIC METABOLIC PANEL+MG Specimen Type: PLASMA No comment entered. Ordering Provider: GIOVANNI ADLER Report Released Date/Time: Apr 25, 2024 05:04 PM Reporting Lab: [facility] [phone] Performing Lab: [facility] [phone] CREATININE 0.7 mg/dL 0.7-1.2 UREA NITROGEN 15 mg/dL 8-26 GLUCOSE 104 mg/dL H 70-100 SODIUM 139 mmol/L 136-145 POTASSIUM 3.2 mmol/L L 3.5-5.1 CHLORIDE 103 mmol/L 98-107 CO2 28 mmol/L 22-29 CALCIUM 8.5 mg/dL 8.4-10.2 MAGNESIUM 2.2 mg/dL 1.6-2.6 ANION GAP 8 mmol/L 5-15 .CREAT EGFR(CKD-EPI) >90 >60 Apr 25, 2024 07:46 AM [facility] BASIC METABOLIC PANEL+MG Specimen Type: PLASMA No comment entered. Ordering Provider: GIOVANNI ADLER Report Released Date/Time: Apr 24, 2024 12:37 PM Reporting Lab: [facility] [phone] Performing Lab: [facility] [address] CREATININE 0.7 mg/dL 0.7-1.2 UREA NITROGEN 14 mg/dL 8-26 GLUCOSE 127 mg/dL H 70-100 SODIUM 139 mmol/L 136-145 POTASSIUM 2.9 mmol/L L 3.5-5.1 CHLORIDE 101 mmol/L 98-107 CO2 29 mmol/L 22-29 CALCIUM 8.7 mg/dL 8.4-10.2 MAGNESIUM 2.3 mg/dL 1.6-2.6 ANION GAP 9 mmol/L 5-15 .CREAT EGFR(CKD-EPI) >90 >60 Apr 24, 2024 04:42 PM [facility] BASIC METABOLIC PANEL+MG Specimen Type: PLASMA No comment entered. Ordering Provider: GIOVANNI ADLER Report Released Date/Time: Apr 24, 2024 12:37 PM Reporting Lab: [facility] [phone] Performing Lab: [facility] [address] CREATININE 0.7 mg/dL 0.7-1.2 UREA NITROGEN 16 mg/dL 8-26 GLUCOSE 97 mg/dL 70-100 SODIUM 138 mmol/L 136-145 POTASSIUM 2.7 mmol/L L 3.5-5.1 CHLORIDE 99 mmol/L 98-107 CO2 30 mmol/L H 22-29 CALCIUM 8.4 mg/dL 8.4-10.2 MAGNESIUM 2.1 mg/dL 1.6-2.6 ANION GAP 9 mmol/L 5-15 .CREAT EGFR(CKD-EPI) >90 >60 Apr 24, 2024 07:36 AM [facility] BASIC METABOLIC PANEL+MG Specimen Type: PLASMA Comment: Critical Value Reported To: Cait Zamorano RN 8-27-24@[address] [place] [address]. Critical value report confirmed. Ordering Provider: AARON VICTOR Report Released Date/Time: Apr 23, 2024 05:30 PM Reporting Lab: [facility] [phone] Performing Lab: [facility] [address] CREATININE 0.7 mg/dL 0.7-1.2 UREA NITROGEN 16 mg/dL 8-26 GLUCOSE 105 mg/dL H 70-100 SODIUM 138 mmol/L 136-145 POTASSIUM 2.3 mmol/L LL 3.5-5.1 CHLORIDE 98 mmol/L 98-107 CO2 29 mmol/L 22-29 CALCIUM 8.3 mg/dL L 8.4-10.2 MAGNESIUM 2.2 mg/dL 1.6-2.6 ANION GAP 11 mmol/L 5-15 .CREAT EGFR(CKD-EPI) >90 >60 Apr 24, 2024 07:35 AM [facility] CBC & DIFF Specimen Type: BLOOD Comment: Automated Differential Performed Ordering Provider: AARON VICTOR Report Released Date/Time: Apr 23, 2024 05:30 PM Reporting Lab: [facility] [phone] Performing Lab: [facility] [address] WBC 10.49 10*3/uL 4.0-11.0 RBC 3.83 10*6/uL [...] 10*3/uL 0-0.1 Apr 23, 2024 01:20 PM [facility] LACTIC ACID Specimen Type: PLASMA No comment entered. Ordering Provider: AARON VICTOR Report Released Date/Time: Apr 23, 2024 12:05 PM Reporting Lab: [facility] [phone] Performing Lab: [facility] [address] LACTIC ACID 1.5 mmol/L 0.5-2.2 Apr 23, 2024 01:20 PM [facility] ACT PART THROMBO TIME Specimen Type: PLASMA No comment entered. Ordering Provider: AARON VICTOR Report Released Date/Time: Apr 23, 2024 12:05 PM Reporting Lab: [facility] [phone] Performing Lab: [facility] [address] APTT 29.3 s 25.1-36.5 Apr 23, 2024 01:20 PM [facility] PROTHROMBIN TIME/INR Specimen Type: PLASMA No comment entered. Ordering Provider: AARON VICTOR Report Released Date/Time: Apr 23, 2024 12:05 PM Reporting Lab: [facility] [address] Performing Lab: [facility] [phone] .INR 1.2 H 0.8-1.1 .PT 14.5 s H 9.4-12.5 Apr 23, 2024 01:20 PM [facility] COMPREHENSIVE METABOLIC PANEL+MG Specimen Type: PLASMA No comment entered. Ordering Provider: AARON VICTOR Report Released Date/Time: Apr 23, 2024 12:05 PM Reporting Lab: [facility] [phone] Performing Lab: [facility] [address] CREATININE 0.7 mg/dL 0.7-1.2 UREA NITROGEN 19 [...] >90 >60 Apr 23, 2024 01:20 PM [facility] CBC & DIFF Specimen Type: BLOOD Comment: Automated Differential Performed Ordering Provider: AARON VICTOR Report Released Date/Time: Apr 23, 2024 12:05 PM Reporting Lab: [facility] [phone] Performing Lab: [facility] [address] WBC 12.50 10*3/uL H 4.0-11.0 RBC 4.07 [...] 10*3/uL 0-0.1 Apr 21, 2024 07:28 AM [facility] URINALYSIS Specimen Type: URINE No comment entered. Ordering Provider: ANANDA HUGGINS Report Released Date/Time: Apr 21, 2024 07:37 AM Reporting Lab: [facility] [id number] Performing Lab: [facility] [address] URINE COLOR COLORLESS SPECIFIC GRAVITY 1.009 1.003-1.03 [...] Source Apr 25, 2024 08:51 PM 5 [facility] Apr 25, 2024 08:50 PM 5 [facility] Apr 25, 2024 04:53 PM 6 [facility] Apr 25, 2024 04:11 PM 6 [facility] Apr 25, 2024 11:59 AM 6 [facility] Social History: Smoking Status [...] 06, 2023 11:30 AM VA-TOBACCO FORMER USER [facility] Tobacco Use History This section includes a history of the smoking, or tobacco-related health factors, that were collected on or before the date of the Encounter. The data comes from the [place] facility where the Encounter took place. Date/Time Smoking Status/Tobacco Use Comment F acility May 06, 2023 11:30 AM VA-TOBACCO QUIT 15 YRS OR MORE [facility] Jun 04, 2022 09:00 AM VA-TOBACCO FORMER USER [facility] Jun 04, 2022 09:00 AM VA-TOBACCO QUIT 15 YRS OR MORE [facility] Jul 10, 2021 08:00 AM VA-TOBACCO FORMER USER [facility] Jul 10, 2021 08:00 AM VA-TOBACCO QUIT 5 TO < 15 YRS [facility] May 23, 2020 08:30 AM VA-TOBACCO FORMER USER [facility] May 23, 2020 08:30 AM VA-TOBACCO QUIT 5 TO < 15 YRS [facility] Mar 20, 2019 04:03 PM VA-TOBACCO FORMER USER [facility] Mar 20, 2019 04:03 PM VA-TOBACCO QUIT 5 TO < 15 YRS [facility] Mar 21, 2018 08:13 AM FORMER TOBACCO USER 7Y OR GREATE R [facility] Feb 24, 2017 09:24 AM FORMER TOBACCO USER 7Y OR GREATE R [facility] January 07, 2016 08:01 AM FORMER TOBACCO USE >1Y <7Y [facility] Feb 03, 2015 07:58 AM FORMER TOBACCO USE <1Y [facility] Feb 26, 2014 08:41 AM CURRENT TOBACCO USER [facility] May 13, 2011 01:45 PM CURRENT TOBACCO USER [facility] Advance Directives: All historical and current Section Date Range: From patient's date of to the date document was created. This section includes ALL of a patient's completed or amended [place] Advance and Rescinded Directives. The entries below indicate that a directive exists for the patient, but an actual copy is not included with this document. The data comes from all [facility]. Date Advance Directives Provider Source Mar 23, 2016 CLINICAL WARNING TIM TERAN [facility] Radiology Reports: [...] IR FISTULOGRAM OR SINOGRAM : FLACA WEAVER [id number] -1950 M Exm Date: MAY 25, 2024@09:00 Req Phys: AMINTA ESCALONA Loc: [facility] XRAY INTERVENTIONAL RADIO Img Loc: INTERVENTIONAL RADIOLOGY Service: [place] [address] (Case [id number] COMPLETE) IR FISTULOGRAM OR SINOGRAM (ANI Detailed) CPT:24710 Contrast Media : unspecified contrast media Reason for Study: s/p drain placement for diverticular abscess- assess for drain Clinical History: [place] IS NOT under investigation for COVID-19 or is COVID-19 negative 2 week follow up per Dr Escalona Contact number for responsible provider who can be reached for any questions or notifications of critical findings: [phone] Sonal LAST 3: Collection DT Specimen Test [...] 25, 2024 Date Verified: MAY 25, 2024 Cell Plasterer E-Sig:/ES/DAVID BURNS MD Report: PROCEDURES 05/25/2024 9:48 [...] Primary Interpreting Staff: DAVID BURNS MD, RADIOLOGIST (Cell Plasterer) /CSS DAVID BURNS [facility] May 25, 2024 08:[address] (AP) ABDOMEN/PELVIS (P): FLACA WEAVER [id number] -1950 M Exm Date: MAY 25, 2024@08:23 Req Phys: DAVID BURNS Pat Loc: [facility] XRAY INTERVENTIONAL RADIO Img Loc: CT IMAGING Service: [place] [address] (Case [id number] COMPLETE) CT (AP) ABDOMEN/PELVIS W/O CONTRA(CT Detailed) CPT:74201 Reason for Study: assess abscess and possible drain removal Clinical History: no contrast per venancio Per Joint Commission Standards, by signing this diagnostic imaging request the ordering provider confirms they have considered patients age and recent imaging history. Defer to radiologist for final CT protocol. Contact number for responsible provider who can be reached for any questions or notifications of critical findings: [phone] venancio LAST 3: Collection DT Specimen Test Name Result Units Ref Range 05/21/2024 06:59 PLASMA CREATININE 0.9 mg/dL 0.7 - 1.2 05/04/2024 08:36 PLASMA CREATININE 0.7 mg/dL 0.7 - 1.2 04/26/2024 05:30 PLASMA CREATININE 0.7 mg/dL 0.7 - 1.2 05/21/2024 06:59 PLASMA .CREAT EGFR(CKD-E >90 Ref: >=60 05/04/2024 08:36 PLASMA .CREAT EGFR(CKD-E >90 Ref: >=60 04/26/2024 05:30 PLASMA .CREAT EGFR(CKD-E >90 Ref: >=60 Allergies: ([place] only) TERAZOSIN (Mar 13, 2015) Report Status: Verified Date Reported: MAY 25, 2024 Date Verified: MAY 25, 2024 Cell Plasterer E-Sig:/ES/JESSENIA GOODMAN MD Report: EXAM: CT abdomen and pelvis without intravenous contrast. 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 TECHNIQUE: Helical acquisition of image data was performed for the abdomen and pelvis without intravenous contrast. Dose: 512.57 mGy*cm COMPARISON: CT abdomen pelvis with contrast 05/11/[address] abdomen pelvis 04/23/2024.; CT abdomen pelvis 05/05/2020 FINDINGS: WASTE DISPOSAL LEAKAGE TESTER: Pigtail catheter projecting over the left hemipelvis [...] dimension with a right posterolateral focal calcification. Mathew catheter from the prior images has been removed. 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 Portions of the colon extend anterior to the right hepatic lobe (). Colonic diverticulosis. Stable mild inflammatory changes and [...] Primary Interpreting Staff: JESSENIA GOODMAN MD, RADIOLOGIST (Cell Plasterer) Primary Interpreting Resident: YOHANNES MELO DO, DRIVE WORKER /JESSENIA LOUIE [facility] May 11, 2024 12:39 PM IR FISTULOGRAM / SINOGRAM (P): FLACA WEAVER [id number] -1950 M Exm Date: MAY 11, 2024@12:39 Req Phys: PALMIRA POWELL Loc: [facility] C/R FOLLOW-UP CLINIC (Req' Img Loc: INTERVENTIONAL RADIOLOGY Service: [place] [address] (Case [id number] COMPLETE) IR INJECTION FOR SINOGRAM DIAGNOS(ANI Detailed) CPT:04671 Contrast Media : Non-ionic Iodinated Reason for Study: s/p drain placement for diverticular abscess- assess for drain (Case [id number] COMPLETE) IR FISTULOGRAM OR SINOGRAM (ANI Detailed) CPT:23824 Contrast Media : unspecified contrast media (Case [id number] COMPLETE) IR DRAINAGE CATHETER SUPPLY (ANI Detailed) CPT:C1729 Clinical History: IS NOT under investigation for COVID-19 or is COVID-19 negative s/p drain placement for diverticular abscess- assess for drain removal Contact number for responsible provider who can be reached for any questions or notifications of critical findings: [phone] Palmira Powell MD LAST CREATININE 0.7 (05/04/24) Report Status: Verified Date Reported: MAY 11, 2024 Date Verified: MAY 11, 2024 Cell Plasterer E-Sig:/ES/AMINTA ESCALONA MD Report: PROCEDURES Abdominal drain [...] with sinogram in IR. Primary Interpreting Staff: AMITNA ESCALONA MD, INTERVENTIONAL RADIOLOGIST (Cell Plasterer) /AMINTA VELAZCO [facility] May 11, 2024 11:[address] (AP) ABDOMEN/PELVIS (P): FLACA WEAVER [id number] -1950 M Exm Date: MAY 11, 2024@11:40 Req Phys: PALMIRA POWELL Loc: [facility] C/R FOLLOW-UP CLINIC (Req' Img Loc: CT IMAGING Service: [place] [address] (Case [id number] COMPLETE) CT (AP) ABDOMEN/PELVIS W CONTRAST(CT Detailed) CPT:47529 Contrast Media : Non-ionic Iodinated Reason for [...] any questions or notifications of critical findings: [phone] Palmira Powell MD LAST 3: Collection DT [...] PLASMA .CREAT EGFR(CKD-E >90 Ref: >=60 Allergies: ([place] only) TERAZOSIN (Mar 13, 2015) Report Status: Verified Date Reported: MAY 11, 2024 Date Verified: MAY 11, 2024 Cell Plasterer E-Sig:/ES/LISA PENDLETON MD Report: CT abdomen and [...] Primary Interpreting Staff: LISA PENDLETON MD, RADIOLOGIST (Cell Plasterer) /JRT LISA PENDLETON [facility] Apr 24, 2024 02:13 PM ABSCESS DRAIN PLACEMENT PERITONEAL (P): MEGFLACA YAMIL [id number] -1950 M Exm Date: APR 24, 2024@14:13 Req Phys: TAURUS WOOD Loc: 3K04-24-2024@16:07 Img Loc: INTERVENTIONAL RADIOLOGY Service: PR[place] [address] (Case [id number] COMPLETE) IR PERITONEAL/RETROPERITONEAL PER(ANI Detailed) CPT:80622 Reason for Study: diverticular abscess Clinical History: [place] IS NOT under investigation for COVID-19 or is COVID-19 negative 73yo M with hx of recurrent diverticulitis, transferred from [facility] 04/[address] 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 Found to have 2nd degree heart block, planning pacemaker placement Contact number for responsible provider who can be reached for any questions or notifications of critical findings: [phone] If ordering provider is a trainee, enter the name and contact information of the responsible staff physician. Palmira Powell MD LAST CREATININE 0.7 (04/23/24) Report Status: Verified Date Reported: APR 24, 2024 Date Verified: APR 24, 2024 Cell Plasterer E-Sig:/ES/SADIA DEE MD Report: PROCEDURES: Placement of [...] anesthesia. Using real-time CT fluoroscopy, a 5 Scottish Yueh catheter was advanced into the collection in the left lower quadrant. A wire was coiled in the collection. The tract into the collection was dilated to accommodate the 12 Scottish locking pigtail drainage catheter. The catheter was secured to the skin with monofilament suture and connected to JUAN bulb suction. Impression: Successful placement of a 12 Scottish locking pigtail drainage catheter in the left lower quadrant abscess. This catheter is connected to JUAN bulb suction with flushes, as ordered. I, SADIA DEE, have reviewed the images and report. Primary Interpreting Staff: SADIA DEE MD, RADIOLOGIST (Cell Plasterer) Primary Interpreting Resident: JEFFREY FLOWER MD, DRIVE WORKER /SADIA SNYDER [facility] Apr 24, 2024 02:[address] NEEDLE PLACEMENT (P): FLACA WEAVER [id number] -1950 M Exm Date: APR 24, 2024@14:11 Req Phys: TAURUS WOOD Loc: 3KS04-24-2024@16:07 Img Loc: CT IMAGING Service: PR[place] [address] (Case [id number] COMPLETE) CT SCAN FOR NEEDLE PLACEMENT (CT Detailed) CPT:83362 Reason for Study: diverticular abscess Clinical History: Report Status: Verified Date Reported: APR 24, 2024 Date Verified: APR 24, 2024 Cell Plasterer E-Sig:/ES/SADIA DEE MD Report: PROCEDURES: Placement of [...] anesthesia. Using real-time CT fluoroscopy, a 5 Scottish Yueh catheter was advanced into the collection in the left lower quadrant. A wire was coiled in the collection. The tract into the collection was dilated to accommodate the 12 Scottish locking pigtail drainage catheter. The catheter was secured to the skin with monofilament suture and connected to JUAN bulb suction. Impression: Successful placement of a 12 Scottish locking pigtail drainage catheter in the left lower quadrant abscess. This catheter is connected to JUAN bulb suction with flushes, as ordered. I, SADIA DEE, have reviewed the images and report. Primary Interpreting Staff: SADIA DEE MD, RADIOLOGIST (Cell Plasterer) Primary Interpreting Resident: JEFFREY FLOWER MD, DRIVE WORKER /SADIA SNYDER [facility] Apr 23, 2024 06:[address] ABDOMEN/PELVIS: FLACA WEAVER [id number] -1950 M Exm Date: APR 23, 2024@06:36 Req Phys: MCKAY VICTOR Pat Loc: 3KS/04-24-2024@10:25 Img Loc: OUTSOURCE CT Service: Unknown (Case [id number] COMPLETE) NON [facility] CT ABDOMEN/PELVIS (CT Detailed) CPT:56303 Reason for Study: OUTSIDE STUDY Clinical History: [...] Diagnostic Code: VERIFIED BY: / *ELECTRONICALLY FILED* [facility] Pathology Reports: +/- 30 days [...] AM LR MICROBIOLOGY RE PORT: Reporting Lab: [facility] [CLIA# [id number]] [place] [address] Accession [UID]: [id number] [[id number]] Received: Apr 21, 2024@08:16 Collection sample: URINE Collection date: Apr 21, 2024 07:28 Provider: ANANDA HUGGINS Comment on specimen: RECEIVED IN STERILE CUP Test(s) ordered: CULTURE & SUSCEPTIBILITY...... completed: Apr 22, 2024 * BACTERIOLOGY FINAL REPORT => Apr 22, 2024 08:38 TECH CODE: [id number] CULTURE RESULTS: NO GROWTH 24 HOURS Bacteriology Remark(s): THIS REPORT IS FINAL =--=--=--=--=--=--=--=--=--=--=--=- -=--=--=--=--=--=--=--=--=--=--=--= --=--=-- Performing Laboratory: Bacteriology Report Performed By: [facility] [CLIA# [id number]] [place] [address] [facility] Encounter Notes: All associated encounter notes This section contains the clinical notes associated to the Encounter. Date/Time Encounter Note(s) Provider Source Apr 25, 2024 03:02 PM ADDENDUM: LOCAL TITLE: Addendum STANDARD TITLE: ADDENDUM DATE OF NOTE: APR 25, 2024@15:02:01 ENTRY DATE: APR 25, 2024@15:02:03 AUTHOR: PALMIRA POWELL EXP COSIGNER: URGENCY: STATUS: COMPLETED Please see RTC [facility] C/R FOLLOW-UP order for next week. /alexi/ PALMIRA POWELL MD STAFF SURGEON, COLON/RECTAL Signed: 04/25/2024 15:02 Receipt Acknowledged By: 06/25/2024 14:37 /alexi/ SERGEY RIOS [facility] 04/25/2024 15:29 /alexi/ RAMIRO HENAON, RN, PHN General Surgery/Colorectal Coordinator --- Original Document --- 04/25/24 COLON-RECTAL INPT PROGRESS NOTE: INPATIENT PROGRESS NOTE Subjective: Patient extremtly frustrated about the cares he has received here. Drain with minimal output and was flushed by RN yesterday (as is protocol for non-draining drains), and immediately patient had feculent output from Mathew catheter. Patient planning to talk with patient advocacy and nurse midwife/clinical instructor today. Pain controlled, ROS otherwise negative, tolerating [...] Surg Signed: 04/25/2024 09:51 Receipt Acknowledged By: 06/25/2024 14:36 /alexi/ SERGEY RIOS [facility] 04/25/2024 15:02 /alexi/ PALMIRA POWELL MD STAFF SURGEON, COLON/RECTAL 04/25/2024 ADDENDUM STATUS: COMPLETED Pt seen on rounds and agree with assessment and plan. If patient is discharged within next 1-2 days, will have patient follow-up with me next week with repeat CT scan. Total time: 25min /alexi/ PALMIRA POWELL MD STAFF SURGEON, COLON/RECTAL Signed: 04/25/2024 15:01 PALMIRA POWELL [facility] Apr 25, 2024 09:43 AM COLON & RECTAL ELISA BRAEDEN NOTE: LOCAL TITLE: COLON-RECTAL INPT PROGRESS NOTE STANDARD TITLE: COLON & RECTAL SURGERY NOTE DATE OF NOTE: APR 25, 2024@09:43 ENTRY DATE: APR 25, 2024@09:43:53 AUTHOR: LOGAN SOODIGNER: URGENCY: STATUS: COMPLETED COLON-RECTAL INPT PROGRESS NOTE Has ADDENDA INPATIENT PROGRESS NOTE Subjective: Patient extremtly frustrated about the cares he has received here. Drain with minimal output and was flushed by RN yesterday (as is protocol for non-draining drains), and immediately patient had feculent output from Mathew catheter. Patient planning to talk with patient advocacy and nurse midwife/clinical instructor today. Pain controlled, ROS otherwise negative, tolerating [...] Surg Signed: 04/25/2024 09:51 Receipt Acknowledged By: 06/25/2024 14:36 /es/ SERGEY RIOS [facility] 04/25/2024 15:02 /es/ PALMIRA POWELL MD STAFF [...] COLON/RECTAL Signed: 04/25/2024 15:02 Receipt Acknowledged By: 06/25/2024 14:37 /es/ SERGEY RIOS [facility] 04/25/2024 15:29 /es/ RAMIRO FABIAN BSN, RN, PHN General Surgery/Colorectal Coordinator LOGAN SOOD [facility]
--- OUTSIDE RECORDS SUMMARY | 2024-07-16 07:11 | XMS_ITS ---
[place] DAILY HOSPITALIZATION DATA [facility] Encounter Summary Created on: July 16, 2024 FLACA WEAVER : 1950 Sex: Male Author Name [facility] [place] [facility] [place] Address [address] [place] [address] Care Team Providers Care Wax Pot Tender Name Role Phone JATINDER BENITEZ Primary [...] PART A Sep 29, 2016 PART A [id number] [phone] JUDY WEAVER PATIENT Selected Encounter This section [...] 02:30 PM AMBULATORY - NONE [place] [facility] [facility] May 02, 2024 10:00 AM AMBULATORY - SURGERY [place] [facility] May 04, 2024 09:00 AM AMBULATORY - NONE [place] [facility] [facility] May 07, 2024 08:45 AM AMBULATORY - [place]ICINE [place] [facility] May 08, 2024 02:00 PM AMBULATORY - NONE [place] [facility] [facility] May 09, 2024 07:30 AM AMBULATORY - SURGERY [place] [facility] May 11, 2024 01:00 PM AMBULATORY - NONE [place] [facility] [facility] May 11, 2024 03:30 PM AMBULATORY - NONE [place] [facility] May 15, 2024 08:30 AM [place]ORY [place]IC[place] [facility] May 16, 2024 07:45 AM AMBULATORY - SURGERY [place] [facility] May 22, 2024 07:30 AM AMBULATORY - NONE [place] [facility] May 22, 2024 05:30 PM AMBULATORY - NONE [place] [facility] May 25, 2024 08:22 AM AMBULATORY - NONE [place] [facility] [facility] May 25, 2024 09:00 AM AMBULATORY - NONE [place] [facility] May 28, 2024 08:15 AM AMBULATORY - SURGERY [place] [facility] Jun 04, 2024 11:30 AM AMBULATORY - NONE [place] [facility] Jun 08, 2024 11:00 AM AMBULATORY - SURGERY [place] [facility] Jun 08, 2024 12:45 PM AMBULATORY - NONE [place] [facility] Jun 08, 2024 01:15 PM AMBULATORY - MEDICINE [place] [facility] Jun 08, 2024 01:45 PM AMBULATORY - SURGERY [place] [facility] Active, Pending, and Scheduled Orders This [...] SUSCEPTIBILITY ~Culture sample from JUAN drain output [facility] Apr 26, 2024 10:10 AM Laboratory - Microbiology Order GRAM STAIN WOUND OTHER WC ONCE ~For Test: GRAM STAIN ~JUAN drain culture/gram stain [facility] May 28, 2024 12:00 AM Laboratory - Blood Bank Order TYPE & SCREEN - LAB BLOOD SP [facility] Jun 08, 2024 09:57 AM Laboratory - Chemistry Order URINALYSIS URINE WC ONCE [facility] Lab Results: +/- 30 days of the [...] Range Comment May 21, 2024 06:59 AM [facility] BASIC METABOLIC PANEL+MG Specimen Type: PLASMA No comment entered. Ordering Provider: GOLDIE BENITEZ Report Released Date/Time: May 15, 2024 08:34 AM Reporting Lab: [facility] [phone] Performing Lab: [facility] [phone] CREATININE 0.9 mg/dL 0.7-1.2 UREA NITROGEN 18 mg/dL 8-26 GLUCOSE 126 mg/dL H 70-100 SODIUM 138 mmol/L 136-145 POTASSIUM 4.0 mmol/L 3.5-5.1 CHLORIDE 105 mmol/L 98-107 CO2 24 mmol/L 22-29 CALCIUM 9.8 mg/dL 8.4-10.2 MAGNESIUM 2.0 mg/dL 1.6-2.6 ANION GAP 9 mmol/L 5-15 .CREAT EGFR(CKD-EPI) >90 >60 May 04, 2024 08:36 AM [facility] BASIC METABOLIC PANEL+MG Specimen Type: PLASMA No comment entered. Ordering Provider: GOLDIE BENITEZ Report Released Date/Time: May 03, 2024 12:52 PM Reporting Lab: [facility] [phone] Performing Lab: [facility] [phone] CREATININE 0.7 mg/dL 0.7-1.2 UREA NITROGEN 13 mg/dL 8-26 GLUCOSE 91 mg/dL 70-100 SODIUM 141 mmol/L 136-145 POTASSIUM 3.6 mmol/L 3.5-5.1 CHLORIDE 109 mmol/L H 98-107 CO2 25 mmol/L 22-29 CALCIUM 8.9 mg/dL 8.4-10.2 MAGNESIUM 2.0 mg/dL 1.6-2.6 ANION GAP 7 mmol/L 5-15 .CREAT EGFR(CKD-EPI) >90 >60 Apr 26, 2024 07:16 AM [facility] BASIC METABOLIC PANEL+MG Specimen Type: PLASMA No comment entered. Ordering Provider: JONO RANDOLPH Report Released Date/Time: Apr 25, 2024 02:50 PM Reporting Lab: [facility] [phone] Performing Lab: [facility] [phone] CREATININE 0.7 mg/dL 0.7-1.2 UREA NITROGEN 15 mg/dL 8-26 GLUCOSE 106 mg/dL H 70-100 SODIUM 139 mmol/L 136-145 POTASSIUM 3.4 mmol/L L 3.5-5.1 CHLORIDE 105 mmol/L 98-107 CO2 25 mmol/L 22-29 CALCIUM 8.5 mg/dL 8.4-10.2 MAGNESIUM 2.2 mg/dL 1.6-2.6 ANION GAP 9 mmol/L 5-15 .CREAT EGFR(CKD-EPI) >90 >60 Apr 25, 2024 05:10 PM [facility] BASIC METABOLIC PANEL+MG Specimen Type: PLASMA No comment entered. Ordering Provider: GIOVANNI ADLER Report Released Date/Time: Apr 25, 2024 05:04 PM Reporting Lab: [facility] [phone] Performing Lab: [facility] [address] CREATININE 0.7 mg/dL 0.7-1.2 UREA NITROGEN 15 mg/dL 8-26 GLUCOSE 104 mg/dL H 70-100 SODIUM 139 mmol/L 136-145 POTASSIUM 3.2 mmol/L L 3.5-5.1 CHLORIDE 103 mmol/L 98-107 CO2 28 mmol/L 22-29 CALCIUM 8.5 mg/dL 8.4-10.2 MAGNESIUM 2.2 mg/dL 1.6-2.6 ANION GAP 8 mmol/L 5-15 .CREAT EGFR(CKD-EPI) >90 >60 Apr 25, 2024 07:46 AM [facility] BASIC METABOLIC PANEL+MG Specimen Type: PLASMA No comment entered. Ordering Provider: GIOVANNI ADLER Report Released Date/Time: Apr 24, 2024 12:37 PM Reporting Lab: [facility] [phone] Performing Lab: [facility] [address] CREATININE 0.7 mg/dL 0.7-1.2 UREA NITROGEN 14 mg/dL 8-26 GLUCOSE 127 mg/dL H 70-100 SODIUM 139 mmol/L 136-145 POTASSIUM 2.9 mmol/L L 3.5-5.1 CHLORIDE 101 mmol/L 98-107 CO2 29 mmol/L 22-29 CALCIUM 8.7 mg/dL 8.4-10.2 MAGNESIUM 2.3 mg/dL 1.6-2.6 ANION GAP 9 mmol/L 5-15 .CREAT EGFR(CKD-EPI) >90 >60 Apr 24, 2024 04:42 PM [facility] BASIC METABOLIC PANEL+MG Specimen Type: PLASMA No comment entered. Ordering Provider: GIOVANNI ADLER Report Released Date/Time: Apr 24, 2024 12:37 PM Reporting Lab: [facility] [phone] Performing Lab: [facility] [address] CREATININE 0.7 mg/dL 0.7-1.2 UREA NITROGEN 16 mg/dL 8-26 GLUCOSE 97 mg/dL 70-100 SODIUM 138 mmol/L 136-145 POTASSIUM 2.7 mmol/L L 3.5-5.1 CHLORIDE 99 mmol/L 98-107 CO2 30 mmol/L H 22-29 CALCIUM 8.4 mg/dL 8.4-10.2 MAGNESIUM 2.1 mg/dL 1.6-2.6 ANION GAP 9 mmol/L 5-15 .CREAT EGFR(CKD-EPI) >90 >60 Apr 24, 2024 07:36 AM [facility] BASIC METABOLIC PANEL+MG Specimen Type: PLASMA Comment: Critical Value Reported To: Cait Zamorano RN 04-24-24@[address] [place] [address]. Critical value report confirmed. Ordering Provider: AARON VICTOR Report Released Date/Time: Apr 23, 2024 05:30 PM Reporting Lab: [facility] [phone] Performing Lab: [facility] [address] CREATININE 0.7 mg/dL 0.7-1.2 UREA NITROGEN 16 mg/dL 8-26 GLUCOSE 105 mg/dL H 70-100 SODIUM 138 mmol/L 136-145 POTASSIUM 2.3 mmol/L LL 3.5-5.1 CHLORIDE 98 mmol/L 98-107 CO2 29 mmol/L 22-29 CALCIUM 8.3 mg/dL L 8.4-10.2 MAGNESIUM 2.2 mg/dL 1.6-2.6 ANION GAP 11 mmol/L 5-15 .CREAT EGFR(CKD-EPI) >90 >60 Apr 24, 2024 07:35 AM [facility] CBC & DIFF Specimen Type: BLOOD Comment: Automated Differential Performed Ordering Provider: AARON VICTOR Report Released Date/Time: Apr 23, 2024 05:30 PM Reporting Lab: [facility] [address] Performing Lab: [facility] [address] WBC 10.49 10*3/uL 4.0-11.0 RBC 3.83 10*6/uL [...] 10*3/uL 0-0.1 Apr 23, 2024 01:20 PM [facility] LACTIC ACID Specimen Type: PLASMA No comment entered. Ordering Provider: AARON VICTOR Report Released Date/Time: Apr 23, 2024 12:05 PM Reporting Lab: [facility] [phone] Performing Lab: [facility] [address] LACTIC ACID 1.5 mmol/L 0.5-2.2 Apr 23, 2024 01:20 PM [facility] PROTHROMBIN TIME/INR Specimen Type: PLASMA No comment entered. Ordering Provider: AARON VICTOR Report Released Date/Time: Apr 23, 2024 12:05 PM Reporting Lab: [facility] [address] Performing Lab: [facility] [address] .INR 1.2 H 0.8-1.1 .PT 14.5 s H 9.4-12.5 Apr 23, 2024 01:20 PM [facility] ACT PART THROMBO TIME Specimen Type: PLASMA No comment entered. Ordering Provider: AARON VICTOR Report Released Date/Time: Apr 23, 2024 12:05 PM Reporting Lab: [facility] [address] Performing Lab: [facility] [address] APTT 29.3 s 25.1-36.5 Apr 23, 2024 01:20 PM [facility] COMPREHENSIVE METABOLIC PANEL+MG Specimen Type: PLASMA No comment entered. Ordering Provider: AARON VICTOR Report Released Date/Time: Apr 23, 2024 12:05 PM Reporting Lab: [facility] [address] Performing Lab: [facility] [address] CREATININE 0.7 mg/dL 0.7-1.2 UREA NITROGEN 19 [...] >90 >60 Apr 23, 2024 01:20 PM [facility] CBC & DIFF Specimen Type: BLOOD Comment: Automated Differential Performed Ordering Provider: AARON VICTOR Report Released Date/Time: Apr 23, 2024 12:05 PM Reporting Lab: [facility] [address] Performing Lab: [facility] [address] WBC 12.50 10*3/uL H 4.0-11.0 RBC 4.07 [...] 10*3/uL 0-0.1 Apr 21, 2024 07:28 AM [facility] URINALYSIS Specimen Type: URINE No comment entered. Ordering Provider: ANANDA HUGGINS Report Released Date/Time: Apr 21, 2024 07:37 AM Reporting Lab: [facility] [address] Performing Lab: [facility] [address] URINE COLOR COLORLESS SPECIFIC GRAVITY 1.009 1.003-1.03 [...] Source Apr 25, 2024 08:51 PM 5 [facility] Apr 25, 2024 08:50 PM 5 [facility] Apr 25, 2024 04:53 PM 6 [facility] Apr 25, 2024 04:11 PM 6 [facility] Apr 25, 2024 11:59 AM 6 [facility] Social History: Smoking Status (Most current) [...] 06, 2023 11:30 AM VA-TOBACCO FORMER USER [facility] Tobacco Use History This section includes a history of the smoking, or tobacco-related health factors, that were collected on or before the date of the Encounter. The data comes from the [place] facility where the Encounter took place. Date/Time Smoking Status/Tobacco Use Comment F tiera May 06, 2023 11:30 AM VA-TOBACCO QUIT 15 YRS OR MORE [facility] Jun 04, 2022 09:00 AM VA-TOBACCO FORMER USER [facility] Jun 04, 2022 09:00 AM VA-TOBACCO QUIT 15 YRS OR MORE [facility] Jul 10, 2021 08:00 AM VA-TOBACCO FORMER USER [facility] Jul 10, 2021 08:00 AM VA-TOBACCO QUIT 5 TO < 15 YRS [facility] May 23, 2020 08:30 AM VA-TOBACCO FORMER USER [facility] May 23, 2020 08:30 AM VA-TOBACCO QUIT 5 TO < 15 YRS [facility] Mar 20, 2019 04:03 PM VA-TOBACCO FORMER USER [facility] Mar 20, 2019 04:03 PM VA-TOBACCO QUIT 5 TO < 15 YRS [facility] Mar 21, 2018 08:13 AM FORMER TOBACCO USER 7Y OR GREATE R [facility] Feb 24, 2017 09:24 AM FORMER TOBACCO USER 7Y OR GREATE R [facility] January 07, 2016 08:01 AM FORMER TOBACCO USE >1Y <7Y [facility] Feb 03, 2015 07:58 AM FORMER TOBACCO USE <1Y [facility] Feb 26, 2014 08:41 AM CURRENT TOBACCO USER [facility] May 13, 2011 01:45 PM CURRENT TOBACCO USER [facility] Advance Directives: All historical and current Section Date Range: From patient's date of to the date document was created. This section includes ALL of a patient's completed or amended [place] Advance and Rescinded Directives. The entries below indicate that a directive exists for the patient, but an actual copy is not included with this document. The data comes from all [facility]. Date Advance Directives Provider Source Mar 23, 2016 CLINICAL WARNING [facility] Radiology Reports: +/- 30 days of [...] IR FISTULOGRAM OR SINOGRAM : FLACA WEAVER [id number] -1950 M Exm Date: MAY 25, 2024@09:00 Req Phys: AMINTA ESCALONA Loc: [facility] INTERVENTIONAL RADIO Img Loc: INTERVENTIONAL RADIOLOGY Service: [place] [address] (Case [id number] COMPLETE) IR FISTULOGRAM OR SINOGRAM (ANI Detailed) CPT:69189 Contrast Media : unspecified contrast media Reason for Study: s/p drain placement for diverticular abscess- assess for drain Clinical History: IS NOT under investigation for COVID-19 or is COVID-19 negative 2 week follow up per Dr Escalona Contact number for responsible provider who can be reached for any questions or notifications of critical findings: [phone] LAST 3: Collection DT Specimen Test [...] 25, 2024 Date Verified: MAY 25, 2024 Gerentological Physiotherapist E-Sig:/ES/DAVID BURNS MD Report: PROCEDURES 05/25/2024 9:48 [...] Primary Interpreting Staff: DAVID BURNS MD, RADIOLOGIST (Gerentological Physiotherapist) /CSS DAVID BURNS [facility] May 25, 2024 08:[address] (AP) ABDOMEN/PELVIS (P): FLACA WEAVER [id number] -1950 M Exm Date: MAY 25, 2024@08:23 Req Phys: DAVID BURNS Pat Loc: [facility] INTERVENTIONAL RADIO Img Loc: CT IMAGING Service: [place] [address] (Case [id number] COMPLETE) CT (AP) ABDOMEN/PELVIS W/O CONTRA(CT Detailed) CPT:97235 Reason for Study: assess abscess and possible [...] PLASMA .CREAT EGFR(CKD-E >90 Ref: >=60 Allergies: ([place] only) TERAZOSIN (Mar 13, 2015) Report Status: Verified Date Reported: MAY 25, 2024 Date Verified: MAY 25, 2024 Gerentological Physiotherapist E-Sig:/ES/JESSENIA GOODMAN MD Report: EXAM: CT abdomen and pelvis without intravenous contrast. 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 TECHNIQUE: Helical acquisition of image data was performed for the abdomen and pelvis without intravenous contrast. Dose: 512.57 mGy*cm COMPARISON: CT abdomen pelvis with contrast 05/11/[address] abdomen pelvis 04/23/2024.; CT abdomen pelvis 05/05/2020 FINDINGS: HANDLE ASSEMBLER: Pigtail catheter projecting over the left hemipelvis [...] Primary Interpreting Staff: JESSENIA GOODMAN MD, RADIOLOGIST (Gerentological Physiotherapist) Primary Interpreting Resident: YOHANNES MELO DO, DEVELOPMENT ADMINISTRATOR /JESSENIA LOUIE [facility] May 11, 2024 12:39 PM IR FISTULOGRAM / SINOGRAM (P): FLACA WEAVER [id number] -1950 M Exm Date: MAY 11, 2024@12:39 Req Phys: PALMIRA POWELL Loc: [facility] C/R FOLLOW-UP CLINIC (Req' Img Loc: INTERVENTIONAL RADIOLOGY Service: [place] [address] (Case [id number] COMPLETE) IR INJECTION FOR SINOGRAM DIAGNOS(ANI Detailed) CPT:96521 Contrast Media : Non-ionic Iodinated Reason for Study: s/p drain placement for diverticular abscess- assess for drain (Case [id number] COMPLETE) IR FISTULOGRAM OR SINOGRAM (ANI Detailed) CPT:29700 Contrast Media : unspecified contrast media (Case [id number] COMPLETE) IR DRAINAGE CATHETER SUPPLY (ANI Detailed) CPT:C1729 Clinical History: IS NOT under investigation for COVID-19 or is COVID-19 negative s/p drain placement for diverticular abscess- assess for drain removal Contact number for responsible provider who can be reached for any questions or notifications of critical findings: [phone] Palmira Powell MD LAST CREATININE 0.7 (05/04/24) Report Status: Verified Date Reported: MAY 11, 2024 Date Verified: MAY 11, 2024 Gerentological Physiotherapist E-Sig:/ES/AMINTA ESCALONA MD Report: PROCEDURES Abdominal drain [...] Interpreting Staff: AMINTA ESCALONA MD, INTERVENTIONAL RADIOLOGIST (Gerentological Physiotherapist) /AMINTA VELAZCO [facility] May 11, 2024 11:[address] (AP) ABDOMEN/PELVIS (P): FLACA WEAVER [id number] -1950 M Exm Date: MAY 11, 2024@11:40 Req Phys: PALMIRA POWELL Loc: [facility] C/R FOLLOW-UP [facility]IN[facility] (Req' Img Loc: CT IMAGING Service: [place] [address] (Case [id number] COMPLETE) CT (AP) ABDOMEN/PELVIS W CONTRAST(CT Detailed) CPT:18796 Contrast Media : Non-ionic Iodinated Reason for [...] any questions or notifications of critical findings: [phone] Palmira Powell MD LAST 3: Collection DT [...] PLASMA .CREAT EGFR(CKD-E >90 Ref: >=60 Allergies: ([place] only) TERAZOSIN (Mar 13, 2015) Report Status: Verified Date Reported: MAY 11, 2024 Date Verified: MAY 11, 2024 Gerentological Physiotherapist E-Sig:/ES/LISA PENDLETON MD Report: CT abdomen and [...] Primary Interpreting Staff: LISA PENDLETON MD, RADIOLOGIST (Gerentological Physiotherapist) /JRT LISA PENDLETON [facility] Apr 24, 2024 02:13 PM ABSCESS DRAIN PLACEMENT PERITONEAL (P): FLACA WEAVER [id number] -1950 M Exm Date: APR 24, 2024@14:13 Req Phys: TAURUS WOOD Loc: 04-24-2024@16:07 Img Loc: INTERVENTIONAL RADIOLOGY Service: [facility] [address] (Case [id number] COMPLETE) IR PERITONEAL/RETROPERITONEAL PER(ANI Detailed) CPT:18555 Reason for Study: diverticular abscess Clinical History: IS NOT under investigation for COVID-19 or is COVID-19 negative 73yo M with hx of recurrent diverticulitis, transferred from [facility] 04/[address] 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 Found to have 2nd degree heart block, planning pacemaker placement Contact number for responsible provider who can be reached for any questions or notifications of critical findings: [phone] If ordering provider is a trainee, enter the name and contact information of the responsible staff physician. Palmira Powell MD LAST CREATININE 0.7 (04/23/24) Report Status: Verified Date Reported: APR 24, 2024 Date Verified: APR 24, 2024 Gerentological Physiotherapist E-Sig:/ES/SADIA DEE MD Report: PROCEDURES: Placement of [...] anesthesia. Using real-time CT fluoroscopy, a 5 [place] Yueh catheter was advanced into the collection in the left lower quadrant. A wire was coiled in the collection. The tract into the collection was dilated to accommodate the 12 [place]ican locking pigtail drainage catheter. The catheter was secured to the skin with monofilament suture and connected to JUAN bulb suction. Impression: Successful placement of a 12 [place]ican locking pigtail drainage catheter in the left lower quadrant abscess. This catheter is connected to JUAN bulb suction with flushes, as ordered. I, SADIA DEE, have reviewed the images and report. Primary Interpreting Staff: SADIA DEE MD, RADIOLOGIST (Gerentological Physiotherapist) Primary Interpreting Resident: JEFFREY FLOWER MD, DEVELOPMENT ADMINISTRATOR /SADIA SNYDER [facility] Apr 24, 2024 02:[address] NEEDLE PLACEMENT (P): FLACA WEAEVR [id number] -1950 M Exm Date: APR 24, 2024@14:11 Req Phys: TAURUS WOOD Loc: 3K04-24-2024@16:07 [facility] Loc: CT IMAGING Service: PR[place] [address] (Case [id number] COMPLETE) CT SCAN FOR NEEDLE PLACEMENT (CT Detailed) CPT:73220 Reason for Study: diverticular abscess Clinical History: Report Status: Verified Date Reported: APR 24, 2024 Date Verified: APR 24, 2024 Gerentological Physiotherapist E-Sig:/ES/SADIA DEE MD Report: PROCEDURES: Placement of [...] anesthesia. Using real-time CT fluoroscopy, a 5 [place] Yueh catheter was advanced into the collection in the left lower quadrant. A wire was coiled in the collection. The tract into the collection was dilated to accommodate the 12 [place] locking pigtail drainage catheter. The catheter was secured to the skin with monofilament suture and connected to JUAN bulb suction. Impression: Successful placement of a 12 [place]ican locking pigtail drainage catheter in the left lower quadrant abscess. This catheter is connected to JUAN bulb suction with flushes, as ordered. I, SADIA DEE, have reviewed the images and report. Primary Interpreting Staff: SADIA DEE MD, RADIOLOGIST (Gerentological Physiotherapist) Primary Interpreting Resident: JEFFREY FLOWER MD, DEVELOPMENT ADMINISTRATOR /SADIA SNYDER [facility] Apr 23, 2024 06:[address] ABDOMEN/PELVIS: FLACA WEAVER [id number] -1950 M Ex Date: APR 23, 2024@06:36 Req Phys: MCKAY VICTOR Pat Loc: 3[facility]/04-24-2024@10:25 [facility] [place] Loc: OUTSOURCE CT Service: Unknown (Case [id number] COMPLETE) NON [place] CT ABDOMEN/PELVIS (CT Detailed) CPT:12887 Reason for Study: OUTSIDE STUDY Clinical History: [...] Diagnostic Code: VERIFIED BY: / *ELECTRONICALLY FILED* [facility] Pathology Reports: +/- 30 days of the [...] AM LR MICROBIOLOGY RE PORT: Reporting Lab: [facility] [CLIA# [id number]] [place] [address] Accession [UID]: [id number] [[id number]] Received: Apr 21, 2024@08:16 Collection sample: URINE Collection date: Apr 21, 2024 07:28 Provider: ANANDA HUGGINS Comment on specimen: RECEIVED IN STERILE CUP Test(s) ordered: CULTURE & SUSCEPTIBILITY...... completed: Apr 22, 2024 * BACTERIOLOGY FINAL REPORT => Apr 22, 2024 08:38 TECH CODE: [id number] CULTURE RESULTS: NO GROWTH 24 HOURS Bacteriology Remark(s): THIS REPORT IS FINAL =--=--=--=--=--=--=--=--=--=--=--=- -=--=--=--=--=--=--=--=--=--=--=--= --=--=-- Performing Laboratory: Bacteriology Report Performed By: [facility] [CLIA# [id number]] [address] [place] [address] [facility]
--- OUTSIDE RECORDS SUMMARY | 2024-07-16 07:11 | XMS_ITS | Encounter Summary ---
Author Name [facility] [place] [facility] [place] Organization [facility] [place] [facility] [place] Address [address] [place] [address] Care Team Providers Care Social Science Research Assistant Name Role Phone JATINDER BENITEZ Primary Care [...] PART A Sep 29, 2016 PART A [phone] JUDY WEAVER PATIENT Selected Encounter This section [...] 02:30 PM AMBULATORY - NONE [place] [facility] May 02, 2024 10:00 AM AMBULATORY - SURGERY [place] [facility] May 04, 2024 09:00 AM AMBULATORY - NONE [place] [facility] May 07, 2024 08:45 AM AMBULATORY - [place]ICINE [place] [facility] May 08, 2024 02:00 PM AMBULATORY - NONE [place] [facility] May 09, 2024 07:30 AM AMBULATORY - SURGERY [place] [facility] May 11, 2024 01:00 PM AMBULATORY - NONE [place] [facility] May 11, 2024 03:30 PM AMBULATORY - NONE [place] [facility] May 15, 2024 08:30 AM AM[place]UL[place]ORY - [place]ICINE [place] [facility] May 16, 2024 07:45 AM AMBULATORY - SURGERY [place] [facility] May 22, 2024 07:30 AM AMBULATORY - NONE [place] [facility] May 22, 2024 05:30 PM AMBULATORY - NONE [place] [facility] May 25, 2024 08:22 AM AMBULATORY - NONE [place] [facility] May 25, 2024 09:00 AM AMBULATORY - NONE [place] [facility] May 28, 2024 08:15 AM AMBULATORY - SURGERY [place] [facility] Jun 04, 2024 11:30 AM AMBULATORY - NONE [place] [facility] Jun 08, 2024 11:00 AM AMBULATORY - SURGERY [place] [facility] Jun 08, 2024 12:45 PM AMBULATORY - NONE [place] [facility] Jun 08, 2024 01:15 PM AMBULATORY - [place]ICINE [place] [facility] Jun 08, 2024 01:45 PM AMBULATORY - SURGERY [place] [facility] Active, Pending, and Scheduled Orders This section includes a listing of several types of active, pending, and scheduled orders, including clinic medications orders, diagnostic test orders, procedure orders and consult orders; where the start date of the order is 45 days before the date of the Encounter or 45 days after the date of theEncounter. The data comes from all [place] treatment facilities. Test Date/Time Test Type Test Details Facility Name Apr 26, 2024 10:10 AM Laboratory - Microbiology Order CULTURE & SUSCEPTIBILITY WOUND OTHER WC ONCE ~For Test: CULTURE & SUSCEPTIBILITY ~Culture sample from JUAN drain output [facility] Apr 26, 2024 10:10 AM Laboratory - Microbiology Order GRAM STAIN WOUND OTHER WC ONCE ~For Test: GRAM STAIN ~JUAN drain culture/gram stain [facility] May 28, 2024 12:00 AM Laboratory - Blood Bank Order TYPE & SCREEN - LAB BLOOD SP [facility] Jun 08, 2024 09:57 AM Laboratory - Chemistry Order URINALYSIS URINE WC ONCE [facility] Lab Results: [...] Range Comment May 21, 2024 06:59 AM [facility] BASIC METABOLIC PANEL+MG Specimen Type: PLASMA No comment entered. Ordering Provider: GOLDIE BENITEZ Report Released Date/Time: May 15, 2024 08:34 AM Reporting Lab: [facility] [address] Performing Lab: [facility] [address] CREATININE 0.9 mg/dL 0.7-1.2 UREA NITROGEN 18 mg/dL 8-26 GLUCOSE 126 mg/dL H 70-100 SODIUM 138 mmol/L 136-145 POTASSIUM 4.0 mmol/L 3.5-5.1 CHLORIDE 105 mmol/L 98-107 CO2 24 mmol/L 22-29 CALCIUM 9.8 mg/dL 8.4-10.2 MAGNESIUM 2.0 mg/dL 1.6-2.6 ANION GAP 9 mmol/L 5-15 .CREAT EGFR(CKD-EPI) >90 >60 May 04, 2024 08:36 AM [facility] BASIC METABOLIC PANEL+MG Specimen Type: PLASMA No comment entered. Ordering Provider: GOLDIE BENITEZ Report Released Date/Time: May 03, 2024 12:52 PM Reporting Lab: [facility] [address] Performing Lab: [facility] [address] CREATININE 0.7 mg/dL 0.7-1.2 UREA NITROGEN 13 mg/dL 8-26 GLUCOSE 91 mg/dL 70-100 SODIUM 141 mmol/L 136-145 POTASSIUM 3.6 mmol/L 3.5-5.1 CHLORIDE 109 mmol/L H 98-107 CO2 25 mmol/L 22-29 CALCIUM 8.9 mg/dL 8.4-10.2 MAGNESIUM 2.0 mg/dL 1.6-2.6 ANION GAP 7 mmol/L 5-15 .CREAT EGFR(CKD-EPI) >90 >60 Apr 26, 2024 07:16 AM [facility] BASIC METABOLIC PANEL+MG Specimen Type: PLASMA No comment entered. Ordering Provider: JONO RANDOLPH Report Released Date/Time: Apr 25, 2024 02:50 PM Reporting Lab: [facility] [address] Performing Lab: [facility] [address] CREATININE 0.7 mg/dL 0.7-1.2 UREA NITROGEN 15 mg/dL 8-26 GLUCOSE 106 mg/dL H 70-100 SODIUM 139 mmol/L 136-145 POTASSIUM 3.4 mmol/L L 3.5-5.1 CHLORIDE 105 mmol/L 98-107 CO2 25 mmol/L 22-29 CALCIUM 8.5 mg/dL 8.4-10.2 MAGNESIUM 2.2 mg/dL 1.6-2.6 ANION GAP 9 mmol/L 5-15 .CREAT EGFR(CKD-EPI) >90 >60 Apr 25, 2024 05:10 PM [facility] BASIC METABOLIC PANEL+MG Specimen Type: PLASMA No comment entered. Ordering Provider: GIOVANNI ADLER Report Released Date/Time: Apr 25, 2024 05:04 PM Reporting Lab: [facility] [address] Performing Lab: [facility] [address] CREATININE 0.7 mg/dL 0.7-1.2 UREA NITROGEN 15 mg/dL 8-26 GLUCOSE 104 mg/dL H 70-100 SODIUM 139 mmol/L 136-145 POTASSIUM 3.2 mmol/L L 3.5-5.1 CHLORIDE 103 mmol/L 98-107 CO2 28 mmol/L 22-29 CALCIUM 8.5 mg/dL 8.4-10.2 MAGNESIUM 2.2 mg/dL 1.6-2.6 ANION GAP 8 mmol/L 5-15 .CREAT EGFR(CKD-EPI) >90 >60 Apr 25, 2024 07:46 AM [facility] BASIC METABOLIC PANEL+MG Specimen Type: PLASMA No comment entered. Ordering Provider: GIOVANNI ADLER Report Released Date/Time: Apr 24, 2024 12:37 PM Reporting Lab: [facility] [address] Performing Lab: [facility] [address] CREATININE 0.7 mg/dL 0.7-1.2 UREA NITROGEN 14 mg/dL 8-26 GLUCOSE 127 mg/dL H 70-100 SODIUM 139 mmol/L 136-145 POTASSIUM 2.9 mmol/L L 3.5-5.1 CHLORIDE 101 mmol/L 98-107 CO2 29 mmol/L 22-29 CALCIUM 8.7 mg/dL 8.4-10.2 MAGNESIUM 2.3 mg/dL 1.6-2.6 ANION GAP 9 mmol/L 5-15 .CREAT EGFR(CKD-EPI) >90 >60 Apr 24, 2024 04:42 PM [facility] BASIC METABOLIC PANEL+MG Specimen Type: PLASMA No comment entered. Ordering Provider: GIOVANNI ADLER Report Released Date/Time: Apr 24, 2024 12:37 PM Reporting Lab: [facility] [address] Performing Lab: [facility] [address] CREATININE 0.7 mg/dL 0.7-1.2 UREA NITROGEN 16 mg/dL 8-26 GLUCOSE 97 mg/dL 70-100 SODIUM 138 mmol/L 136-145 POTASSIUM 2.7 mmol/L L 3.5-5.1 CHLORIDE 99 mmol/L 98-107 CO2 30 mmol/L H 22-29 CALCIUM 8.4 mg/dL 8.4-10.2 MAGNESIUM 2.1 mg/dL 1.6-2.6 ANION GAP 9 mmol/L 5-15 .CREAT EGFR(CKD-EPI) >90 >60 Apr 24, 2024 07:36 AM [facility] BASIC METABOLIC PANEL+MG Specimen Type: PLASMA Comment: Critical Value Reported To: Cait Zamorano RN 04-24-24@[address] [place] [address]. Critical value report confirmed. Ordering Provider: AARON VICTOR Report Released Date/Time: Apr 23, 2024 05:30 PM Reporting Lab: [facility] [address] Performing Lab: [facility] [address] CREATININE 0.7 mg/dL 0.7-1.2 UREA NITROGEN 16 mg/dL 8-26 GLUCOSE 105 mg/dL H 70-100 SODIUM 138 mmol/L 136-145 POTASSIUM 2.3 mmol/L LL 3.5-5.1 CHLORIDE 98 mmol/L 98-107 CO2 29 mmol/L 22-29 CALCIUM 8.3 mg/dL L 8.4-10.2 MAGNESIUM 2.2 mg/dL 1.6-2.6 ANION GAP 11 mmol/L 5-15 .CREAT EGFR(CKD-EPI) >90 >60 Apr 24, 2024 07:35 AM [facility] CBC & DIFF Specimen Type: BLOOD Comment: Automated Differential Performed Ordering Provider: AARON VICTOR Report Released Date/Time: Apr 23, 2024 05:30 PM Reporting Lab: [facility] [address] Performing Lab: [facility] [address] WBC 10.49 10*3/uL 4.0-11.0 RBC 3.83 10*6/uL [...] 10*3/uL 0-0.1 Apr 23, 2024 01:20 PM [facility] LACTIC ACID Specimen Type: PLASMA No comment entered. Ordering Provider: AARON VICTOR Report Released Date/Time: Apr 23, 2024 12:05 PM Reporting Lab: [facility] [address] Performing Lab: [facility] [address] LACTIC ACID 1.5 mmol/L 0.5-2.2 Apr 23, 2024 01:20 PM [facility] ACT PART THROMBO TIME Specimen Type: PLASMA No comment entered. Ordering Provider: AARON VICTOR Report Released Date/Time: Apr 23, 2024 12:05 PM Reporting Lab: [facility] [address] Performing Lab: [facility] [address] APTT 29.3 s 25.1-36.5 Apr 23, 2024 01:20 PM [facility] PROTHROMBIN TIME/INR Specimen Type: PLASMA No comment entered. Ordering Provider: AARON VICTOR Report Released Date/Time: Apr 23, 2024 12:05 PM Reporting Lab: [facility] [address] Performing Lab: [facility] [address] .INR 1.2 H 0.8-1.1 .PT 14.5 s H 9.4-12.5 Apr 23, 2024 01:20 PM [facility] COMPREHENSIVE METABOLIC PANEL+MG Specimen Type: PLASMA No comment entered. Ordering Provider: AARON VICTOR Report Released Date/Time: Apr 23, 2024 12:05 PM Reporting Lab: [facility] [address] Performing Lab: [facility] [address] CREATININE 0.7 mg/dL 0.7-1.2 UREA NITROGEN 19 [...] >90 >60 Apr 23, 2024 01:20 PM [facility] CBC & DIFF Specimen Type: BLOOD Comment: Automated Differential Performed Ordering Provider: AARON VICTOR Report Released Date/Time: Apr 23, 2024 12:05 PM Reporting Lab: [facility] [address] Performing Lab: [facility] [address] WBC 12.50 10*3/uL H 4.0-11.0 RBC 4.07 [...] 10*3/uL 0-0.1 Apr 21, 2024 07:28 AM [facility] URINALYSIS Specimen Type: URINE No comment entered. Ordering Provider: ANANDA HUGGINS Report Released Date/Time: Apr 21, 2024 07:37 AM Reporting Lab: [facility] [address] Performing Lab: [facility] [address] URINE COLOR COLORLESS SPECIFIC GRAVITY 1.009 1.003-1.03 [...] Apr 26, 2024 05:[address] [facility] Apr 26, 2024 05:[address] [facility] Apr 26, 2024 05:[address] [facility] Apr 26, 2024 01:[address] [facility] Apr 26, 2024 01:[address] [facility] Social History: [...] Mar 23, 2016 CLINICAL WARNING [facility] Radiology Reports: +/- 30 days [...] IR FISTULOGRAM OR SINOGRAM : FLACA WEAVER [id number] -1950 M Exm Date: MAY 25, 2024@09:00 Req Phys: AMINTA ESCALONA Loc: [facility] INTERVENTIONAL RADIO Img Loc: INTERVENTIONAL RADIOLOGY Service: [place] [address] (Case [id number] COMPLETE) IR FISTULOGRAM OR SINOGRAM (ANI Detailed) CPT:64657 Contrast Media : unspecified contrast media Reason for Study: s/p drain placement for diverticular abscess- assess for drain Clinical History: [place] IS NOT under investigation for COVID-19 or [...] 25, 2024 Date Verified: MAY 25, 2024 Tin Dipper E-Sig:/ES/DAVID BURNS MD Report: PROCEDURES 05/25/2024 9:48 [...] Primary Interpreting Staff: DAVID BURNS MD, RADIOLOGIST (Tin Dipper) /CSS DAVID BURNS [facility] May 25, 2024 08:[address] (AP) ABDOMEN/PELVIS (P): FLACA WEAVER [id number] -1950 M Exm Date: MAY 25, 2024@08:23 Req Phys: DAVID BURNS Pat Loc: [facility] INTERVENTIONAL RADIO Img Loc: CT IMAGING Service: [place] [address] (Case [id number] COMPLETE) CT (AP) ABDOMEN/PELVIS W/O CONTRA(CT Detailed) CPT:18417 Reason for Study: assess abscess and possible [...] PLASMA .CREAT EGFR(CKD-E >90 Ref: >=60 Allergies: ([place] only) TERAZOSIN (Mar 13, 2015) Report Status: Verified Date Reported: MAY 25, 2024 Date Verified: MAY 25, 2024 Tin Dipper E-Sig:/ES/JESSENIA GOODMAN MD Report: EXAM: CT abdomen and pelvis without intravenous contrast. 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 TECHNIQUE: Helical acquisition of image data was performed for the abdomen and pelvis without intravenous contrast. 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 Chappell catheter from the prior images has been [...] Primary Interpreting Staff: JESSENIA GOODMAN MD, RADIOLOGIST (Tin Dipper) Primary Interpreting Resident: YOHANNES MELO DO, RADIAL DRILL PRESS OPERATOR FOR PLASTIC /JESSENIA LOUIE [facility] May 11, 2024 12:39 PM IR FISTULOGRAM / SINOGRAM (P): FLACA WEAVER [id number] -1950 M Exm Date: MAY 11, 2024@12:39 Req Phys: PALMIRA POWELL Loc: [facility] C/R FOLLOW-UP CLINIC (Req' Img Loc: INTERVENTIONAL RADIOLOGY Service: [place] [address] (Case [id number] COMPLETE) IR INJECTION FOR SINOGRAM DIAGNOS(ANI Detailed) CPT:03517 Contrast Media : Non-ionic Iodinated Reason for Study: s/p drain placement for diverticular abscess- assess for drain (Case [id number] COMPLETE) IR FISTULOGRAM OR SINOGRAM (ANI Detailed) CPT:10243 Contrast Media : unspecified contrast media (Case [id number] COMPLETE) IR DRAINAGE CATHETER SUPPLY (ANI Detailed) CPT:C1729 Clinical History: [place] IS NOT under investigation for COVID-19 or is COVID-19 negative s/p drain placement for diverticular abscess- assess for drain removal Contact number for responsible provider who can be reached for any questions or notifications of critical findings: [phone] Palmira Powell MD LAST CREATININE 0.7 (05/04/24) Report Status: Verified Date Reported: MAY 11, 2024 Date Verified: MAY 11, 2024 Tin Dipper E-Sig:/ES/AMINTA ESCALONA MD Report: PROCEDURES Abdominal drain [...] sinogram in IR. Primary Interpreting Staff: AMINTA ESCALOAN MD, INTERVENTIONAL RADIOLOGIST (Tin Dipper) /AMINTA VELAZCO [facility] May 11, 2024 11:[address] (AP) ABDOMEN/PELVIS (P): FLACA WEAVER [id number] -1950 M Exm Date: MAY 11, 2024@11:40 Req Phys: PALMIRA POWELL Loc: [facility] C/R FOLLOW-UP CLINIC (Req' Img Loc: CT IMAGING Service: [place] [address] (Case [id number] COMPLETE) CT (AP) ABDOMEN/PELVIS W CONTRAST(CT Detailed) CPT:80115 Contrast Media : Non-ionic Iodinated Reason for [...] any questions or notifications of critical findings: [phone] Palmira Powell MD LAST 3: Collection DT [...] PLASMA .CREAT EGFR(CKD-E >90 Ref: >=60 Allergies: ([place] only) TERAZOSIN (Mar 13, 2015) Report Status: Verified Date Reported: MAY 11, 2024 Date Verified: MAY 11, 2024 Tin Dipper E-Sig:/ES/LISA PENDLETON MD Report: CT abdomen and [...] Primary Interpreting Staff: LISA PENDLETON MD, RADIOLOGIST (Tin Dipper) /JRT LISA PENDLETON [facility] Apr 24, 2024 02:13 PM ABSCESS DRAIN PLACEMENT PERITONEAL (P): FLACA WEAVER [id number] -1950 M Exm Date: APR 24, 2024@14:13 Req Phys: TAURUS WOOD Loc: 04-24-2024@16:07 Img Loc: INTERVENTIONAL RADIOLOGY Service: PRIMARY CARE [place] [address] (Case [id number] COMPLETE) IR PERITONEAL/RETROPERITONEAL PER(ANI Detailed) CPT:98218 Reason for Study: diverticular abscess Clinical History: [place] IS NOT under investigation for COVID-19 or is COVID-19 negative 73yo M with hx of recurrent diverticulitis, transferred from [facility] 04/[address] 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 Palmira Powell MD LAST CREATININE 0.7 (04/23/24) Report Status: Verified Date Reported: APR 24, 2024 Date Verified: APR 24, 2024 Tin Dipper E-Sig:/ES/SADIA DEE MD Report: PROCEDURES: Placement of [...] anesthesia. Using real-time CT fluoroscopy, a 5 Gambian Yueh catheter was advanced into the collection in the left lower quadrant. A wire was coiled in the collection. The tract into the collection was dilated to accommodate the 12 Gambian locking pigtail drainage catheter. The catheter was secured to the skin with monofilament suture and connected to JUAN bulb suction. Impression: Successful placement of a 12 Gambian locking pigtail drainage catheter in the left lower quadrant abscess. This catheter is connected to JUAN bulb suction with flushes, as ordered. I, SADIA DEE, have reviewed the images and report. Primary Interpreting Staff: SADIA DEE MD, RADIOLOGIST (Tin Dipper) Primary Interpreting Resident: JEFFREY FLOWER MD, RADIAL DRILL PRESS OPERATOR FOR PLASTIC /SADIA SNYDER [facility] Apr 24, 2024 02:[address] NEEDLE PLACEMENT (P): FLACA WEAVER [id number] -1950 M Exm Date: APR 24, 2024@14:11 Req Phys: TAURUS WOOD Loc: 3K04-24-2024@16:07 Img Loc: CT IMAGING Service: PRIMARY CARE [place] [address] (Case [id number] COMPLETE) CT SCAN FOR NEEDLE PLACEMENT (CT Detailed) CPT:87124 Reason for Study: diverticular abscess Clinical History: Report Status: Verified Date Reported: APR 24, 2024 Date Verified: APR 24, 2024 Tin Dipper E-Sig:/ES/SADIA DEE MD Report: PROCEDURES: Placement of [...] anesthesia. Using real-time CT fluoroscopy, a 5 Gambian Yueh catheter was advanced into the collection in the left lower quadrant. A wire was coiled in the collection. The tract into the collection was dilated to accommodate the 12 Gambian locking pigtail drainage catheter. The catheter was secured to the skin with monofilament suture and connected to JUAN bulb suction. Impression: Successful placement of a 12 Gambian locking pigtail drainage catheter in the left lower quadrant abscess. This catheter is connected to JUAN bulb suction with flushes, as ordered. I, SADIA DEE, have reviewed the images and report. Primary Interpreting Staff: SADIA DEE MD, RADIOLOGIST (Tin Dipper) Primary Interpreting Resident: JEFFREY FLOWER MD, RADIAL DRILL PRESS OPERATOR FOR PLASTIC /SADIA SNYDER [facility] Apr 23, 2024 06:[address] ABDOMEN/PELVIS: FLACA WEAVER [id number] -1950 M Ex Date: APR 23, 2024@06:36 Req Phys: KAYLEIGHMCKAY [facility] Loc: 3KS04-24-2024@10:25 [facility] Loc: OUTSOURCE CT Service: Unknown (Case [id number] COMPLETE) NON [facility] CT ABDOMEN/PELVIS (CT Detailed) CPT:43824 Reason for Study: OUTSIDE STUDY Clinical History: [...] Diagnostic Code: VERIFIED BY: / *ELECTRONICALLY FILED* [facility] Pathology Reports: +/- 30 days of the [...] Lab: [facility] [CLIA# [id number]] [place] [address] Accession [UID]: [id number] [[id number]] Received: Apr 21, 2024@08:16 Collection sample: URINE Collection date: Apr 21, 2024 07:28 Provider: ANANDA HUGGINS Comment on specimen: RECEIVED IN STERILE CUP Test(s) ordered: CULTURE & SUSCEPTIBILITY...... completed: Apr 22, 2024 * BACTERIOLOGY FINAL REPORT => Apr 22, 2024 08:38 TECH CODE: [id number] CULTURE RESULTS: NO GROWTH 24 HOURS Bacteriology Remark(s): THIS REPORT IS FINAL =--=--=--=--=--=--=--=--=--=--=--=- -=--=--=--=--=--=--=--=--=--=--=--= --=--=-- Performing Laboratory: Bacteriology Report Performed By: [facility] [CLIA# [id number]] [address] [place] [address] [facility] Encounter Notes: [...] Discharge Plan Not Applicable FLACA WEAVER [id number] Source of Info: [facility] ========= New meds/items to pick up worker at Outpatient Pharmacy: Acetaminophen tablet Amoxicillin/clavulanate tablet Phenazopyridine tablet Leg bag, urinary drainage set Should NOT take at home anymore: Furosemide, hydrochlorothiazide/lisinopril OK to resume other usual home meds as before, per physician Drug Last Refills Rx # Qty Filled Remaining ACETAMINOPHEN 325MG TAB [id number] 300 (2) TAKE TWO TABLETS BY MOUTH EVERY 6 HOURS NEEDED FOR PAIN Indication: PAIN Provider: JOSE RANDOLPH AMOXICILLIN 875/CLAV K 125MG TAB [id number] 20 (0) TAKE 1 TABLET BY MOUTH TWICE A DAY Indication: ABSCESS, COLOVESICULAR FISTULA Provider: JOSE RANDOLPH ATORVASTATIN CALCIUM 40MG TAB [id number] 04/03/2024 (0) TAKE ONE-HALF TABLET BY MOUTH AT BEDTIME FOR CHOLESTEROL Provider: JATINDER BENITEZ BAG,LEG LATEX REUSABLE UROCARE #[id number] (0) USE 1 BAG DIRECTED WITH CHAPPELL Indication: CHAPPELL Provider: JOSE RANDOLPH EMPAGLIFLOZIN 25MG TAB [id number] 01/17/2024 (3) TAKE ONE-HALF TABLET BY MOUTH EVERY DAY Provider: JATINDER BENITEZ ISOSORBIDE MONONITRATE 30MG SA TAB [id number] 90 03/09/2024 (2) TAKE ONE TABLET BY MOUTH EVERY DAY FOR CHEST PAIN Indication: FOR CHEST PAIN Provider: JATINDER BENITEZ NITROGLYCERIN 0.4MG SL TAB [id number] 100 11/21/2023 (1) DISSOLVE ONE TABLET UNDER THE TONGUE THREE TIMES A DAY NEEDED CHEST PAIN FOR CHEST PAIN * MAY REPEAT EVERY 5 MINUTES--NO MORE THAN 3 TOTAL Indication: CHEST PAIN Provider: JATINDER BENITEZ PHENAZOPYRIDINE HCL 100MG TAB [id number] 90 (0) TAKE TWO TABLETS BY MOUTH THREE TIMES A DAY NEEDED FOR BLADDER PAIN Indication: BLADDER PAIN Provider: JOSE RANDOLPH PSYLLIUM ORAL PWD [id number] 01/31/2024 (3) TAKE 2 TEASPOONSFUL BY MOUTH EVERY DAY FOR CONSTIPATION Indication: FOR CONSTIPATION Provider: JATINDER BENITEZ SPIRONOLACTONE 25MG TAB [id number] 45 02/08/2024 (3) TAKE ONE-HALF TABLET BY MOUTH EVERY DAY FOR BLOOD PRESSURE Indication: FOR BLOOD PRESSURE Provider: JATINDER BENITEZ URINARY DRAINAGE SET,ELISA-FIT C#[id number] (0) USE TUBING BARD 18'' LATEX EXT TUBE #[id number] DIRECTED Indication: CHAPPELL Provider: JOSE RANDOLPH PARTICIPANTS: Patient TEACHING STRATEGY: Face to Face, Medication information sheets and list of medications READINESS TO LEARN No barriers identified PATIENT/FAMILY RESPONSE (OUTCOME): Verbalizes critical information about the topic FOLLOW-UP RECOMMENDED: post-discharge PCP /alexi/ JEFFREY GEORGE Pharmacist Signed: 04/26/2024 13:08 Receipt Acknowledged By: 04/26/2024 15:30 /alexi/ JEFFREY LEROY [facility]
--- OUTSIDE RECORDS SUMMARY | 2024-07-16 07:11 | XMS_ITS ---
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 Date/Time Encounter Type Encounter Description Reason Pro vider Source Apr 26, 2024 03:46 AM Inpatient Visit DAILY HOSPITALIZATION DATA [facility] Encounter Template Text not used by [place] Plan of Treatment: Future Appointments (+ 6 months) and Future Tests (+/- 45 days) The Plan of Treatment section includes future care activities for the patient from all [place] treatmentfacilities. This section includes future appointments and future orders which are active, pending or scheduled. Future Appointments This section includes appointments that were scheduled to occur 6 months from the date of the Encounter, up to a maximum of 20 appointments. The data comes from all [place] treatment facilities. Appointment Date/Time Appointment Type Appointme [...] GRAM STAIN ~JUAN drain culture/gram stain [facility] Apr 26, 2024 10:10 AM Laboratory - Microbiology Order CULTURE & SUSCEPTIBILITY WOUND OTHER WC ONCE ~For Test: CULTURE & SUSCEPTIBILITY ~Culture sample from JUAN drain output [facility] May 28, 2024 12:00 AM Laboratory - Blood Bank Order TYPE & SCREEN - LAB BLOOD SP [facility] Jun 08, 2024 09:57 AM Laboratory - Chemistry Order URINALYSIS URINE WC ONCE [facility] Lab Results: +/- 30 days [...] Comment May 21, 2024 06:[address] [facility] BASIC METABOLIC PANEL+MG Specimen Type: PLASMA No comment entered. Ordering Provider: GOLDIE BENITEZ Report Released Date/Time: May 15, 2024 08:34 AM Reporting Lab: [facility] [phone] Performing Lab: [facility] [phone] CREATININE 0.9 mg/dL 0.7-1.2 UREA NITROGEN 18 mg/dL 8-26 GLUCOSE 126 mg/dL H 70-100 SODIUM 138 mmol/L 136-145 POTASSIUM 4.0 mmol/L 3.5-5.1 CHLORIDE 105 mmol/L 98-107 CO2 24 mmol/L 22-29 CALCIUM 9.8 mg/dL 8.4-10.2 MAGNESIUM 2.0 mg/dL 1.6-2.6 ANION GAP 9 mmol/L 5-15 .CREAT EGFR(CKD-EPI) >90 >60 May 04, 2024 08:[address] [facility] BASIC METABOLIC PANEL+MG Specimen Type: PLASMA No comment entered. Ordering Provider: GOLDIE BENITEZ Report Released Date/Time: May 03, 2024 12:52 PM Reporting Lab: [facility] [phone] Performing Lab: [facility] [address] CREATININE 0.7 mg/dL 0.7-1.2 UREA NITROGEN 13 mg/dL 8-26 GLUCOSE 91 mg/dL 70-100 SODIUM 141 mmol/L 136-145 POTASSIUM 3.6 mmol/L 3.5-5.1 CHLORIDE 109 mmol/L H 98-107 CO2 25 mmol/L 22-29 CALCIUM 8.9 mg/dL 8.4-10.2 MAGNESIUM 2.0 mg/dL 1.6-2.6 ANION GAP 7 mmol/L 5-15 .CREAT EGFR(CKD-EPI) >90 >60 Apr 26, 2024 07:[address] [facility] BASIC METABOLIC PANEL+MG Specimen Type: PLASMA No comment entered. Ordering Provider: JONO RANDOLPH Report Released Date/Time: Apr 25, 2024 02:50 PM Reporting Lab: [facility] [phone] Performing Lab: [facility] [phone] CREATININE 0.7 mg/dL 0.7-1.2 UREA NITROGEN 15 mg/dL 8-26 GLUCOSE 106 mg/dL H 70-100 SODIUM 139 mmol/L 136-145 POTASSIUM 3.4 mmol/L L 3.5-5.1 CHLORIDE 105 mmol/L 98-107 CO2 25 mmol/L 22-29 CALCIUM 8.5 mg/dL 8.4-10.2 MAGNESIUM 2.2 mg/dL 1.6-2.6 ANION GAP 9 mmol/L 5-15 .CREAT EGFR(CKD-EPI) >90 >60 Apr 25, 2024 05:[address] [facility] BASIC METABOLIC PANEL+MG Specimen Type: PLASMA No comment entered. Ordering Provider: GIOVANNI ADLER Report Released Date/Time: Apr 25, 2024 05:04 PM Reporting Lab: [facility] [phone] Performing Lab: [facility] [phone] CREATININE 0.7 mg/dL 0.7-1.2 UREA NITROGEN 15 mg/dL 8-26 GLUCOSE 104 mg/dL H 70-100 SODIUM 139 mmol/L 136-145 POTASSIUM 3.2 mmol/L L 3.5-5.1 CHLORIDE 103 mmol/L 98-107 CO2 28 mmol/L 22-29 CALCIUM 8.5 mg/dL 8.4-10.2 MAGNESIUM 2.2 mg/dL 1.6-2.6 ANION GAP 8 mmol/L 5-15 .CREAT EGFR(CKD-EPI) >90 >60 Apr 25, 2024 07:[address] [facility] BASIC METABOLIC PANEL+MG Specimen Type: PLASMA No comment entered. Ordering Provider: GIOVANNI ADLER Report Released Date/Time: Apr 24, 2024 12:37 PM Reporting Lab: [facility] [phone] Performing Lab: [facility] [phone] CREATININE 0.7 mg/dL 0.7-1.2 UREA NITROGEN 14 mg/dL 8-26 GLUCOSE 127 mg/dL H 70-100 SODIUM 139 mmol/L 136-145 POTASSIUM 2.9 mmol/L L 3.5-5.1 CHLORIDE 101 mmol/L 98-107 CO2 29 mmol/L 22-29 CALCIUM 8.7 mg/dL 8.4-10.2 MAGNESIUM 2.3 mg/dL 1.6-2.6 ANION GAP 9 mmol/L 5-15 .CREAT EGFR(CKD-EPI) >90 >60 Apr 24, 2024 04:[address] [facility] BASIC METABOLIC PANEL+MG Specimen Type: PLASMA No comment entered. Ordering Provider: GIOVANNI ADLER Report Released Date/Time: Apr 24, 2024 12:37 PM Reporting Lab: [facility] [phone] Performing Lab: [facility] [phone] CREATININE 0.7 mg/dL 0.7-1.2 UREA NITROGEN 16 mg/dL 8-26 GLUCOSE 97 mg/dL 70-100 SODIUM 138 mmol/L 136-145 POTASSIUM 2.7 mmol/L L 3.5-5.1 CHLORIDE 99 mmol/L 98-107 CO2 30 mmol/L H 22-29 CALCIUM 8.4 mg/dL 8.4-10.2 MAGNESIUM 2.1 mg/dL 1.6-2.6 ANION GAP 9 mmol/L 5-15 .CREAT EGFR(CKD-EPI) >90 >60 Apr 24, 2024 07:[address] [facility] BASIC METABOLIC PANEL+MG Specimen Type: PLASMA Comment: Critical Value Reported To: Cait Zamorano RN 04-24-24@[address] [place] [address]. Critical value report confirmed. Ordering Provider: AARON VICTOR Report Released Date/Time: Apr 23, 2024 05:30 PM Reporting Lab: [facility] [phone] Performing Lab: [facility] [phone] CREATININE 0.7 mg/dL 0.7-1.2 UREA NITROGEN 16 mg/dL 8-26 GLUCOSE 105 mg/dL H 70-100 SODIUM 138 mmol/L 136-145 POTASSIUM 2.3 mmol/L LL 3.5-5.1 CHLORIDE 98 mmol/L 98-107 CO2 29 mmol/L 22-29 CALCIUM 8.3 mg/dL L 8.4-10.2 MAGNESIUM 2.2 mg/dL 1.6-2.6 ANION GAP 11 mmol/L 5-15 .CREAT EGFR(CKD-EPI) >90 >60 Apr 24, 2024 07:[address] [facility] CBC & DIFF Specimen Type: BLOOD Comment: Automated Differential Performed Ordering Provider: AARON VICTOR Report Released Date/Time: Apr 23, 2024 05:30 PM Reporting Lab: [facility] [phone] Performing Lab: [facility] [phone] WBC 10.49 10*3/uL 4.0-11.0 RBC 3.83 10*6/uL [...] 0-0.1 Apr 23, 2024 01:[address] [facility] LACTIC ACID Specimen Type: PLASMA No comment entered. Ordering Provider: AARON VICTOR Report Released Date/Time: Apr 23, 2024 12:05 PM Reporting Lab: [facility] [address] Performing Lab: [facility] [address] LACTIC ACID 1.5 mmol/L 0.5-2.2 Apr 23, 2024 01:[address] [facility] PROTHROMBIN TIME/INR Specimen Type: PLASMA No comment entered. Ordering Provider: AARON VICTOR Report Released Date/Time: Apr 23, 2024 12:05 PM Reporting Lab: [facility] [phone] Performing Lab: [facility] [address] .INR 1.2 H 0.8-1.1 .PT 14.5 s H 9.4-12.5 Apr 23, 2024 01:[address] [facility] ACT PART THROMBO TIME Specimen Type: PLASMA No comment entered. Ordering Provider: AARON VICTOR Report Released Date/Time: Apr 23, 2024 12:05 PM Reporting Lab: [facility] [address] Performing Lab: [facility] [address] APTT 29.3 s 25.1-36.5 Apr 23, 2024 01:[address] [facility] COMPREHENSIVE METABOLIC PANEL+MG Specimen Type: PLASMA No comment entered. Ordering Provider: AARON VICTOR Report Released Date/Time: Apr 23, 2024 12:05 PM Reporting Lab: [facility] [address] Performing Lab: [facility] [phone] CREATININE 0.7 mg/dL 0.7-1.2 UREA NITROGEN 19 [...] >60 Apr 23, 2024 01:[address] [facility] CBC & DIFF Specimen Type: BLOOD Comment: Automated Differential Performed Ordering Provider: AARON VICTOR Report Released Date/Time: Apr 23, 2024 12:05 PM Reporting Lab: [facility] [phone] Performing Lab: [facility] [address] WBC 12.50 10*3/uL H 4.0-11.0 RBC 4.07 [...] 0-0.1 Apr 21, 2024 07:[address] [facility] URINALYSIS Specimen Type: URINE No comment entered. Ordering Provider: ANANDA HUGGINS Report Released Date/Time: Apr 21, 2024 07:37 AM Reporting Lab: [facility] [address] Performing Lab: [facility] [address] URINE COLOR COLORLESS SPECIFIC GRAVITY 1.009 1.003-1.03 [...] Source Apr 26, 2024 05:15 AM 1 [facility] Apr 26, 2024 05:14 AM 5 [facility] Apr 26, 2024 05:06 AM 1 [facility] Apr 26, 2024 01:29 AM 9 [facility] Apr 26, 2024 01:28 AM 9 [facility] Social History: Smoking Status (Most current) and Tobacco Use (All prior to encounter date) This section includes the most current, and the historical, smoking and tobacco- related health factors from the [place] facility where the Encounter took place. Current Smoking Status This section includes the most current smoking, or tobacco-related health factor, from the [place] facility where the Encounter took place. Date/Time Current Smoking Status Comment Juan Manuel putnam May 06, 2023 11:30 AM VA-TOBACCO FORMER USER [facility] Tobacco Use History This section includes a history of the smoking, or tobacco-related health factors, that were collected on or before the date of the Encounter. The data comes from the [place] facility where the Encounter took place. Date/Time Smoking Status/Tobacco Use Comment F tiera May 06, 2023 11:30 AM VA-TOBACCO QUIT [address] [facility] Jun 04, 2022 09:00 AM VA-TOBACCO FORMER USER [facility] Jun 04, 2022 09:00 AM VA-TOBACCO QUIT [address] [facility] Jul 10, 2021 08:00 AM VA-TOBACCO FORMER USER [facility] Jul 10, 2021 08:00 AM VA-TOBACCO QUIT 5 TO < [address] [facility] May 23, 2020 08:30 AM VA-TOBACCO FORMER USER [facility] May 23, 2020 08:30 AM VA-TOBACCO QUIT 5 TO < [address] [facility] Mar 20, 2019 04:03 PM VA-TOBACCO FORMER USER [facility] Mar 20, 2019 04:03 PM VA-TOBACCO QUIT 5 TO < [address] [facility] Mar 21, 2018 08:13 AM FORMER TOBACCO USER 7Y OR GREATE R [facility] Feb 24, 2017 09:24 AM FORMER TOBACCO USER 7Y OR GREATE R [facility] January 07, 2016 08:01 AM FORMER TOBACCO USE >1Y <7Y [facility] Feb 03, 2015 07:58 AM FORMER TOBACCO USE <1Y [facility] Feb 26, 2014 08:41 AM CURRENT TOBACCO USER [facility] May 13, 2011 01:45 [address] TOBACCO USER [facility] Advance Directives: All historical and [...] WARNING [facility] Radiology Reports: +/- [...] IR FISTULOGRAM OR SINOGRAM : FLACA WEAVER [id number] -1950 M Exm Date: MAY 25, 2024@09:00 Req Phys: AMINTA ESCALONA Loc: [facility] X[facility] INTERVENTIONAL RADIO Img Loc: INTERVENTIONAL RADIOLOGY Service: [place] [address] (Case [id number] COMPLETE) IR FISTULOGRAM OR SINOGRAM (ANI Detailed) CPT:55683 Contrast Media : unspecified contrast media Reason [...] 25, 2024 Date Verified: MAY 25, 2024 Account Services Coordinator E-Sig:/ES/DAVID BURNS MD Report: PROCEDURES 05/25/2024 9:48 [...] Primary Interpreting Staff: DAVID BURNS MD, RADIOLOGIST (Account Services Coordinator) /CSS DAVID BURNS [facility] May 25, 2024 08:[address] (AP) ABDOMEN/PELVIS (P): FLACA WEAVER [id number] -1950 M Exm Date: MAY 25, 2024@08:23 Req Phys: DAVID BURNS Pat Loc: [facility] X[facility] INTERVENTIONAL RADIO Img Loc: CT IMAGING Service: [place] [address] (Case [id number] COMPLETE) CT (AP) ABDOMEN/PELVIS W/O CONTRA(CT Detailed) CPT:94165 Reason for Study: assess abscess and possible [...] PLASMA .CREAT EGFR(CKD-E >90 Ref: >=60 Allergies: ([place] only) TERAZOSIN (Mar 13, 2015) Report Status: Verified Date Reported: MAY 25, 2024 Date Verified: MAY 25, 2024 Account Services Coordinator E-Sig:/ES/JESSENIA GOODMAN MD Report: EXAM: CT abdomen and pelvis without intravenous contrast. 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 TECHNIQUE: Helical acquisition of image data was performed for the abdomen and pelvis without intravenous contrast. 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 May 11, 2024 12:39 PM IR FISTULOGRAM / SINOGRAM (P): FLACA WEAVER [id number] -1950 M Exm Date: MAY 11, 2024@12:39 Req Phys: PALMIRA POWELL Loc: [facility] C/R FOLLOW-UP CLINIC (Req' Img Loc: INTERVENTIONAL RADIOLOGY Service: [place] [address] (Case [id number] COMPLETE) IR INJECTION FOR SINOGRAM DIAGNOS(ANI Detailed) CPT:66908 Contrast Media : Non-ionic Iodinated Reason for Study: s/p drain placement for diverticular abscess- assess for drain (Case [id number] COMPLETE) IR FISTULOGRAM OR SINOGRAM (ANI Detailed) CPT:27853 Contrast Media : unspecified contrast media (Case [id number] COMPLETE) IR DRAINAGE CATHETER SUPPLY (ANI Detailed) CPT:C1729 Clinical History: IS NOT under investigation for COVID-19 or is COVID-19 negative s/p drain placement for diverticular abscess- assess for drain removal Contact number for responsible provider who can be reached for any questions or notifications of critical findings: [phone] Palmira Powell MD LAST CREATININE 0.7 (05/04/24) Report Status: Verified Date Reported: MAY 11, 2024 Date Verified: MAY 11, 2024 Account Services Coordinator E-Sig:/ES/AMINTA ESCALONA MD Report: PROCEDURES Abdominal drain [...] Interpreting Staff: AMINTA ESCALONA MD, INTERVENTIONAL RADIOLOGIST (Account Services Coordinator) /AMINTA VELAZCO [facility] May 11, 2024 11:[address] (AP) ABDOMEN/PELVIS (P): FLACA WEAVER [id number] -1950 M Exm Date: MAY 11, 2024@11:40 Req Phys: PALMIRA POWELL Loc: [facility] C/R FOLLOW-UP CLINIC (Req' Img Loc: CT IMAGING Service: [place] [address] (Case [id number] COMPLETE) CT (AP) ABDOMEN/PELVIS W CONTRAST(CT Detailed) CPT:25101 Contrast Media : Non-ionic Iodinated Reason for [...] any questions or notifications of critical findings: [phone] Palmira Powell MD LAST 3: Collection DT [...] PLASMA .CREAT EGFR(CKD-E >90 Ref: >=60 Allergies: ([place] only) TERAZOSIN (Mar 13, 2015) Report Status: Verified Date Reported: MAY 11, 2024 Date Verified: MAY 11, 2024 Account Services Coordinator E-Sig:/ES/LISA PENDLETON MD Report: CT abdomen and [...] Primary Interpreting Staff: LISA PENDLETON MD, RADIOLOGIST (Account Services Coordinator) /JRT LISA PENDLETON [facility] Apr 24, 2024 02:13 PM ABSCESS DRAIN PLACEMENT PERITONEAL (P): FLACA WEAVER [id number] -1950 M Exm Date: APR 24, 2024@14:13 Req Phys: TAURUS WOOD Loc: 04-24-2024@16:07 Img Loc: INTERVENTIONAL RADIOLOGY Service: PRIMARY [place] [address] (Case [id number] COMPLETE) IR PERITONEAL/RETROPERITONEAL PER(ANI Detailed) CPT:99938 Reason for Study: diverticular abscess Clinical History: IS NOT under investigation for COVID-19 or is COVID-19 negative 73yo M with hx of recurrent diverticulitis, transferred from [facility] 04/[address] 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 Found to have 2nd degree heart block, planning pacemaker placement Contact number for responsible provider who can be reached for any questions or notifications of critical findings: [phone] If ordering provider is a trainee, enter the name and contact information of the responsible staff physician. Palmira Powell MD LAST CREATININE 0.7 (04/23/24) Report Status: Verified Date Reported: APR 24, 2024 Date Verified: APR 24, 2024 Account Services Coordinator E-Sig:/ES/SADIA DEE MD Report: PROCEDURES: Placement of abscess drainage catheter with CT guidance CLINICAL HISTORY: Diverticular abscess COMPARISONS: CT 04/23/2024 STAFF RADIOLOGIST: Reante Dee MD RESIDENT: Simran Flower MD Medications: [...] anesthesia. Using real-time CT fluoroscopy, a 5 Maltese Yueh catheter was advanced into the collection in the left lower quadrant. A wire was coiled in the collection. The tract into the collection was dilated to accommodate the 12 Maltese locking pigtail drainage catheter. The catheter was secured to the skin with monofilament suture and connected to JUAN bulb suction. Impression: Successful placement of a 12 Maltese locking pigtail drainage catheter in the left lower quadrant abscess. This catheter is connected to JUAN bulb suction with flushes, as ordered. I, SADIA DEE, have reviewed the images and report. Primary Interpreting Staff: SADIA DEE MD, RADIOLOGIST (Account Services Coordinator) Primary Interpreting Resident: JEFFREY FLOWER MD, SERVICE TECH /SADIA [facility] Apr 24, 2024 02:[address] NEEDLE PLACEMENT (P): FLACA WEAVER [id number] -1950 M Exm Date: APR 24, 2024@14:11 Req Phys: TAURUS WOOD Loc: 3K04-24-2024@16:07 [facility] [place]: CT [place]AGING Service: PR[place] [address] (Case [id number] COMPLETE) CT SCAN FOR NEEDLE PLACEMENT (CT Detailed) CPT:24910 Reason for Study: diverticular abscess Clinical History: Report Status: Verified Date Reported: APR 24, 2024 Date Verified: APR 24, 2024 Account Services Coordinator E-Sig:/ES/SADIA DEE MD Report: PROCEDURES: Placement of [...] anesthesia. Using real-time CT fluoroscopy, a 5 Maltese Yueh catheter was advanced into the collection in the left lower quadrant. A wire was coiled in the collection. The tract into the collection was dilated to accommodate the 12 Maltese locking pigtail drainage catheter. The catheter was secured to the skin with monofilament suture and connected to JUAN bulb suction. Impression: Successful placement of a 12 Maltese locking pigtail drainage catheter in the left lower quadrant abscess. This catheter is connected to JUAN bulb suction with flushes, as ordered. I, SADIA DEE, have reviewed the images and report. Primary Interpreting Staff: SADIA DEE MD, RADIOLOGIST (Account Services Coordinator) Primary Interpreting Resident: JEFFREY FLOWER MD, SERVICE TECH /SADIA [facility] Apr 23, 2024 06:[address] ABDOMEN/PELVIS: FLACA WEAVER [id number] -1950 M Ex Date: APR 23, 2024@06:36 Req Phys: MCKAY VICTOR Pat Loc: 3KS/04-24-2024@10:25 [facility] [place]: OUTSOURCE CT Service: Unknown (Case [id number] COMPLETE) NON [place] CT ABDOMEN/PELVIS (CT Detailed) CPT:55312 Reason for Study: OUTSIDE STUDY Clinical History: [...] Code: VERIFIED BY: / *ELECTRONICALLY FILED* [facility] Pathology Reports: +/- 30 days [...] LR MICROBIOLOGY RE PORT: Reporting Lab: [facility] [CLIA# [id number]] [place] [address] Accession [UID]: [id number] [[id number]] Received: Apr 21, 2024@08:16 Collection sample: URINE Collection date: Apr 21, 2024 07:28 Provider: ANANDA HUGGINS Comment on specimen: RECEIVED IN STERILE CUP Test(s) ordered: CULTURE & SUSCEPTIBILITY...... completed: Apr 22, 2024 * BACTERIOLOGY FINAL REPORT => Apr 22, 2024 08:38 TECH CODE: [id number] CULTURE RESULTS: NO GROWTH 24 HOURS Bacteriology Remark(s): THIS REPORT IS FINAL =--=--=--=--=--=--=--=--=--=--=--=- -=--=--=--=--=--=--=--=--=--=--=--= --=--=-- Performing Laboratory: Bacteriology Report Performed By: [facility] [CLIA# [id number]] [place] [address] [facility]
--- OUTSIDE RECORDS SUMMARY | 2024-07-16 07:11 | XMS_ITS | Encounter Summary ---
Author Name [facility] [place] Organization [facility] [place] [facility] [place] Address [address] [place] [address] Care Team Providers Care Senior Loss Control Specialist Name Role Phone JATINDER BENITEZ Primary [...] PART A Sep 29, 2016 PART A [id number] [phone] JUDY WEAVER PATIENT Selected Encounter This section includes the information on record at [place] for the Encounter. Date/Time Encounter Type Encounter Description Reason Pro vider Source Apr 26, 2024 12:44 PM Inpatient Visit EVENT (HISTORICAL) IHE Encounter Template Text not used by [place] [...] 2024 07:30 AM AM[place]ONE [place] [facility] May 22, 2024 05:30 PM AM[place]ORY - NONE [place] [facility] May 25, 2024 08:22 AM AM[place]ORY - NONE [place] [facility] May 25, 2024 09:00 AM AM[place]ONE [place] [facility] May 28, 2024 08:15 AM [place] [facility] Jun 04, 2024 11:30 AM AM[place]ORY [place]ONE [place] [facility] Jun 08, 2024 11:00 AM [place] [facility] Jun 08, 2024 12:45 PM AMB[place]ORY - NONE [place] [facility] Jun 08, 2024 01:15 PM [place]IC[place] [facility] Jun 08, 2024 01:45 PM AMBULATORY - SURGERY [facility] Active, Pending, and Scheduled Orders This section includes a listing of several types of active, pending, and scheduled orders, including clinic medications orders, diagnostic test orders, procedure orders and consult orders; where the start date of the order is 45 days before the date of the Encounter or 45 days after the date of theEncounter. The data comes from all [place] treatment facilities. Test Date/Time Test Type Test Details Facility Name Apr 26, 2024 10:10 AM Laboratory - Microbiology Order CULTURE & SUSCEPTIBILITY WOUND OTHER WC ONCE ~For Test: CULTURE & SUSCEPTIBILITY ~Culture sample from JUAN drain output [facility] Apr 26, 2024 10:10 AM Laboratory - Microbiology Order GRAM STAIN WOUND OTHER WC ONCE ~For Test: GRAM STAIN ~JUAN drain culture/gram stain [facility] May 28, 2024 12:00 AM Laboratory - Blood Bank Order TYPE & SCREEN - LAB BLOOD SP [facility] Jun 08, 2024 09:57 AM Laboratory - Chemistry Order URINALYSIS URINE WC ONCE [facility] Lab Results: +/- 30 days of [...] May 21, 2024 06:59 AM [facility] BASIC METABOLIC PANEL+MG Specimen Type: PLASMA No comment entered. Ordering Provider: GOLDIE BENITEZ Report Released Date/Time: May 15, 2024 08:34 AM Reporting Lab: [facility] [phone] Performing Lab: [facility] [address] CREATININE 0.9 mg/dL 0.7-1.2 UREA NITROGEN 18 mg/dL 8-26 GLUCOSE 126 mg/dL H 70-100 SODIUM 138 mmol/L 136-145 POTASSIUM 4.0 mmol/L 3.5-5.1 CHLORIDE 105 mmol/L 98-107 CO2 24 mmol/L 22-29 CALCIUM 9.8 mg/dL 8.4-10.2 MAGNESIUM 2.0 mg/dL 1.6-2.6 ANION GAP 9 mmol/L 5-15 .CREAT EGFR(CKD-EPI) >90 >60 May 04, 2024 08:36 AM [facility] BASIC METABOLIC PANEL+MG Specimen Type: PLASMA No comment entered. Ordering Provider: GOLDIE BENITEZ Report Released Date/Time: May 03, 2024 12:52 PM Reporting Lab: [facility] [phone] Performing Lab: [facility] [address] CREATININE 0.7 mg/dL 0.7-1.2 UREA NITROGEN 13 mg/dL 8-26 GLUCOSE 91 mg/dL 70-100 SODIUM 141 mmol/L 136-145 POTASSIUM 3.6 mmol/L 3.5-5.1 CHLORIDE 109 mmol/L H 98-107 CO2 25 mmol/L 22-29 CALCIUM 8.9 mg/dL 8.4-10.2 MAGNESIUM 2.0 mg/dL 1.6-2.6 ANION GAP 7 mmol/L 5-15 .CREAT EGFR(CKD-EPI) >90 >60 Apr 26, 2024 07:16 AM [facility] BASIC METABOLIC PANEL+MG Specimen Type: PLASMA No comment entered. Ordering Provider: JONO RANDOLPH Report Released Date/Time: Apr 25, 2024 02:50 PM Reporting Lab: [facility] [phone] Performing Lab: [facility] [address] CREATININE 0.7 mg/dL 0.7-1.2 UREA NITROGEN 15 mg/dL 8-26 GLUCOSE 106 mg/dL H 70-100 SODIUM 139 mmol/L 136-145 POTASSIUM 3.4 mmol/L L 3.5-5.1 CHLORIDE 105 mmol/L 98-107 CO2 25 mmol/L 22-29 CALCIUM 8.5 mg/dL 8.4-10.2 MAGNESIUM 2.2 mg/dL 1.6-2.6 ANION GAP 9 mmol/L 5-15 .CREAT EGFR(CKD-EPI) >90 >60 Apr 25, 2024 05:10 PM [facility] BASIC METABOLIC PANEL+MG Specimen Type: PLASMA No comment entered. Ordering Provider: GIOVANNI ADLER Report Released Date/Time: Apr 25, 2024 05:04 PM Reporting Lab: [facility] [phone] Performing Lab: [facility] [phone] CREATININE 0.7 mg/dL 0.7-1.2 UREA NITROGEN 15 mg/dL 8-26 GLUCOSE 104 mg/dL H 70-100 SODIUM 139 mmol/L 136-145 POTASSIUM 3.2 mmol/L L 3.5-5.1 CHLORIDE 103 mmol/L 98-107 CO2 28 mmol/L 22-29 CALCIUM 8.5 mg/dL 8.4-10.2 MAGNESIUM 2.2 mg/dL 1.6-2.6 ANION GAP 8 mmol/L 5-15 .CREAT EGFR(CKD-EPI) >90 >60 Apr 25, 2024 07:46 AM [facility] BASIC METABOLIC PANEL+MG Specimen Type: PLASMA No comment entered. Ordering Provider: GIOVANNI ADLER Report Released Date/Time: Apr 24, 2024 12:37 PM Reporting Lab: [facility] [phone] Performing Lab: [facility] [address] CREATININE 0.7 mg/dL 0.7-1.2 UREA NITROGEN 14 mg/dL 8-26 GLUCOSE 127 mg/dL H 70-100 SODIUM 139 mmol/L 136-145 POTASSIUM 2.9 mmol/L L 3.5-5.1 CHLORIDE 101 mmol/L 98-107 CO2 29 mmol/L 22-29 CALCIUM 8.7 mg/dL 8.4-10.2 MAGNESIUM 2.3 mg/dL 1.6-2.6 ANION GAP 9 mmol/L 5-15 .CREAT EGFR(CKD-EPI) >90 >60 Apr 24, 2024 04:42 PM [facility] BASIC METABOLIC PANEL+MG Specimen Type: PLASMA No comment entered. Ordering Provider: GIOVANNI ADLER Report Released Date/Time: Apr 24, 2024 12:37 PM Reporting Lab: [facility] [phone] Performing Lab: [facility] [address] CREATININE 0.7 mg/dL 0.7-1.2 UREA NITROGEN 16 mg/dL 8-26 GLUCOSE 97 mg/dL 70-100 SODIUM 138 mmol/L 136-145 POTASSIUM 2.7 mmol/L L 3.5-5.1 CHLORIDE 99 mmol/L 98-107 CO2 30 mmol/L H 22-29 CALCIUM 8.4 mg/dL 8.4-10.2 MAGNESIUM 2.1 mg/dL 1.6-2.6 ANION GAP 9 mmol/L 5-15 .CREAT EGFR(CKD-EPI) >90 >60 Apr 24, 2024 07:36 AM [facility] BASIC METABOLIC PANEL+MG Specimen Type: PLASMA Comment: Critical Value Reported To: Cait Zamorano RN 04-24-24@[address] [place] [address]. Critical value report confirmed. Ordering Provider: AARON VICTOR Report Released Date/Time: Apr 23, 2024 05:30 PM Reporting Lab: [facility] [phone] Performing Lab: [facility] [address] CREATININE 0.7 mg/dL 0.7-1.2 UREA NITROGEN 16 mg/dL 8-26 GLUCOSE 105 mg/dL H 70-100 SODIUM 138 mmol/L 136-145 POTASSIUM 2.3 mmol/L LL 3.5-5.1 CHLORIDE 98 mmol/L 98-107 CO2 29 mmol/L 22-29 CALCIUM 8.3 mg/dL L 8.4-10.2 MAGNESIUM 2.2 mg/dL 1.6-2.6 ANION GAP 11 mmol/L 5-15 .CREAT EGFR(CKD-EPI) >90 >60 Apr 24, 2024 07:35 AM [facility] CBC & DIFF Specimen Type: BLOOD Comment: Automated Differential Performed Ordering Provider: AARON VICTOR Report Released Date/Time: Apr 23, 2024 05:30 PM Reporting Lab: [facility] [phone] Performing Lab: [facility] [address] WBC 10.49 10*3/uL 4.0-11.0 RBC 3.83 10*6/uL [...] Apr 23, 2024 01:20 PM [facility] LACTIC ACID Specimen Type: PLASMA No comment entered. Ordering Provider: AARON VICTOR Report Released Date/Time: Apr 23, 2024 12:05 PM Reporting Lab: [facility] [address] Performing Lab: [facility] [address] LACTIC ACID 1.5 mmol/L 0.5-2.2 Apr 23, 2024 01:20 PM [facility] PROTHROMBIN TIME/INR Specimen Type: PLASMA No comment entered. Ordering Provider: AARON VICTOR Report Released Date/Time: Apr 23, 2024 12:05 PM Reporting Lab: [facility] [address] Performing Lab: [facility] [address] .INR 1.2 H 0.8-1.1 .PT 14.5 s H 9.4-12.5 Apr 23, 2024 01:20 PM [facility] ACT PART THROMBO TIME Specimen Type: PLASMA No comment entered. Ordering Provider: AARON VICTOR Report Released Date/Time: Apr 23, 2024 12:05 PM Reporting Lab: [facility] [address] Performing Lab: [facility] [address] APTT 29.3 s 25.1-36.5 Apr 23, 2024 01:20 PM [facility] COMPREHENSIVE METABOLIC PANEL+MG Specimen Type: PLASMA No comment entered. Ordering Provider: AARON VICTOR Report Released Date/Time: Apr 23, 2024 12:05 PM Reporting Lab: [facility] [phone] Performing Lab: [facility] [address] CREATININE 0.7 mg/dL 0.7-1.2 UREA NITROGEN 19 [...] >90 >60 Apr 23, 2024 01:20 PM [facility] CBC & DIFF Specimen Type: BLOOD Comment: Automated Differential Performed Ordering Provider: AARON VICTOR Report Released Date/Time: Apr 23, 2024 12:05 PM Reporting Lab: [facility] [address] Performing Lab: [facility] [address] WBC 12.50 10*3/uL H 4.0-11.0 RBC 4.07 [...] 10*3/uL 0-0.1 Apr 21, 2024 07:28 AM [facility] URINALYSIS Specimen Type: URINE No comment entered. Ordering Provider: MADDALI,ANANDA Report Released Date/Time: Apr 21, 2024 07:37 AM Reporting Lab: [facility] [phone] Performing Lab: [facility] [address] URINE COLOR COLORLESS SPECIFIC GRAVITY 1.009 1.003-1.03 [...] Source Apr 26, 2024 05:15 AM 1 [facility] Apr 26, 2024 05:14 AM 5 [facility] Apr 26, 2024 05:06 AM 1 [facility] Apr 26, 2024 01:29 AM 9 [facility] Apr 26, 2024 01:28 AM 9 [facility] Social History: Smoking Status (Most [...] 11:30 AM VA-TOBACCO FORMER USER [facility] Tobacco Use History This section includes a history of the smoking, or tobacco-related health factors, that were collected on or before the date of the Encounter. The data comes from the [place] facility where the Encounter took place. Date/Time Smoking Status/Tobacco Use Comment F tiera May 06, 2023 11:30 AM VA-TOBACCO QUIT 15 YRS OR MORE [facility] Jun 04, 2022 09:00 AM VA-TOBACCO FORMER USER [facility] Jun 04, 2022 09:00 AM VA-TOBACCO QUIT 15 YRS OR MORE [facility] Jul 10, 2021 08:00 AM VA-TOBACCO FORMER USER [facility] Jul 10, 2021 08:00 AM VA-TOBACCO QUIT 5 TO < 15 YRS [facility] May 23, 2020 08:30 AM VA-TOBACCO FORMER USER [facility] May 23, 2020 08:30 AM VA-TOBACCO QUIT 5 TO < 15 YRS [facility] Mar 20, 2019 04:03 PM VA-TOBACCO FORMER USER [facility] Mar 20, 2019 04:03 PM VA-TOBACCO QUIT 5 TO < 15 YRS [facility] Mar 21, 2018 08:13 AM FORMER TOBACCO USER 7Y OR GREATE R [facility] Feb 24, 2017 09:24 AM FORMER TOBACCO USER 7Y OR GREATE R [facility] January 07, 2016 08:01 AM FORMER TOBACCO USE >1Y <7Y [facility] Feb 03, 2015 07:58 AM FORMER TOBACCO USE <1Y [facility] Feb 26, 2014 08:41 AM CURRENT TOBACCO USER [facility] May 13, 2011 01:45 PM CURRENT TOBACCO USER [facility] Advance Directives: All historical and current Section Date Range: From patient's date of to the date document was created. This section includes ALL of a patient's completed or amended [place] Advance and Rescinded Directives. The entries below indicate that a directive exists for the patient, but an actual copy is not included with this document. The data comes from all [facility]. Date Advance Directives [...] IR FISTULOGRAM OR SINOGRAM : FLACA WEAVER [id number] -1950 M Exm Date: MAY 25, 2024@09:00 Req Phys: AMINTA ESCALONA Loc: [facility] X[facility] INTERVENTIONAL RADIO Img Loc: INTERVENTIONAL RADIOLOGY Service: [place] [address] (Case [id number] COMPLETE) IR FISTULOGRAM OR SINOGRAM (ANI Detailed) CPT:98224 Contrast Media : unspecified contrast media Reason for Study: s/p drain placement for diverticular abscess- assess for drain Clinical History: IS NOT under investigation for COVID-19 or is COVID-19 negative 2 week follow up per Dr Escalona Contact number for responsible provider who can be reached for any questions or notifications of critical findings: [phone] LAST 3: Collection DT Specimen Test [...] 25, 2024 Date Verified: MAY 25, 2024 [facility] E-Sig:/ES/DAVID BURNS MD Report: PROCEDURES 05/25/2024 9:48 [...] Primary Interpreting Staff: DAVID BURNS MD, RADIOLOGIST (Curator Herbarium) /CSS DAVID BURNS [facility] May 25, 2024 08:[address] (AP) ABDOMEN/PELVIS (P): FLACA WEAVER [id number] -1950 M Exm Date: MAY 25, 2024@08:23 Req Phys: DAVID BURNS Pat Loc: [facility] INTERVENTIONAL RADIO Img Loc: CT IMAGING Service: [place] [address] (Case [id number] COMPLETE) CT (AP) ABDOMEN/PELVIS W/O CONTRA(CT Detailed) CPT:65284 Reason for Study: assess abscess and possible [...] PLASMA .CREAT EGFR(CKD-E >90 Ref: >=60 Allergies: ([place] only) TERAZOSIN (Mar 13, 2015) Report Status: Verified Date Reported: MAY 25, 2024 Date Verified: MAY 25, 2024 [facility] E-Sig:/ES/JESSENIA GOODMAN MD Report: EXAM: CT abdomen and pelvis without intravenous contrast. 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 TECHNIQUE: Helical acquisition of image data was performed for the abdomen and pelvis without intravenous contrast. Dose: 512.57 mGy*cm COMPARISON: CT abdomen pelvis with contrast 05/11/[address] abdomen pelvis 04/23/2024.; CT abdomen pelvis 05/05/2020 FINDINGS: SOFTWARE SECURITY CONSULTANT: Pigtail catheter projecting over the left hemipelvis [...] Primary Interpreting Staff: JESSENIA GOODMAN MD, RADIOLOGIST (Curator Herbarium) Primary Interpreting Resident: YOHANNES MELO DO, SOCIAL SCIENCE TEACHER /JESSENIA LOUIE [facility] May 11, 2024 12:39 PM IR FISTULOGRAM / SINOGRAM (P): FLACA WEAVER [id number] -1950 M Exm Date: MAY 11, 2024@12:39 Req Phys: PALMIRA POWELL Loc: [facility] C/R FOLLOW-UP CLINIC (Req' Img Loc: INTERVENTIONAL RADIOLOGY Service: [place] [address] (Case [id number] COMPLETE) IR INJECTION FOR SINOGRAM DIAGNOS(ANI Detailed) CPT:62597 Contrast Media : Non-ionic Iodinated Reason for Study: s/p drain placement for diverticular abscess- assess for drain (Case [id number] COMPLETE) IR FISTULOGRAM OR SINOGRAM (ANI Detailed) CPT:77428 Contrast Media : unspecified contrast media (Case [id number] COMPLETE) IR DRAINAGE CATHETER SUPPLY (ANI Detailed) CPT:C1729 Clinical History: [place] IS NOT under investigation for COVID-19 or is COVID-19 negative s/p drain placement for diverticular abscess- assess for drain removal Contact number for responsible provider who can be reached for any questions or notifications of critical findings: [phone] Palmira Powell MD LAST CREATININE 0.7 (05/04/24) Report Status: Verified Date Reported: MAY 11, 2024 Date Verified: MAY 11, 2024 [facility] E-Sig:/ES/AMINTA ESCALONA MD Report: PROCEDURES Abdominal drain [...] Interpreting Staff: AMINTA ESCALONA MD, INTERVENTIONAL RADIOLOGIST (Curator Herbarium) /AMINTA VELAZCO [facility] May 11, 2024 11:[address] (AP) ABDOMEN/PELVIS (P): FLACA WEAVER [id number] -1950 M Exm Date: MAY 11, 2024@11:40 Req Phys: PALMIRA POWELL Loc: [facility] C/R FOLLOW-UP CLINIC (Req' Img Loc: CT IMAGING Service: [place] [address] (Case [id number] COMPLETE) CT (AP) ABDOMEN/PELVIS W CONTRAST(CT Detailed) CPT:57702 Contrast Media : Non-ionic Iodinated Reason for [...] any questions or notifications of critical findings: [phone] Palmira Powell MD LAST 3: Collection DT [...] PLASMA .CREAT EGFR(CKD-E >90 Ref: >=60 Allergies: ([place] only) TERAZOSIN (Mar 13, 2015) Report Status: Verified Date Reported: MAY 11, 2024 Date Verified: MAY 11, 2024 [facility] E-Sig:/ES/LISA PENDLETON MD Report: CT abdomen and [...] Primary Interpreting Staff: LISA PENDLETON MD, RADIOLOGIST (Curator Herbarium) /JRT LISA PENDLETON [facility] Apr 24, 2024 02:13 PM ABSCESS DRAIN PLACEMENT PERITONEAL (P): MEGFLACA YAMIL [id number] -1950 M Exm Date: APR 24, 2024@14:13 Req Phys: TAURUS WOOD Loc: 04-24-2024@16:07 Img Loc: INTERVENTIONAL RADIOLOGY Service: PRIMARY CARE [place] [address] (Case [id number] COMPLETE) IR PERITONEAL/RETROPERITONEAL PER(ANI Detailed) CPT:09858 Reason for Study: diverticular abscess Clinical History: [place] IS NOT under investigation for COVID-19 or is COVID-19 negative 73yo M with hx of recurrent diverticulitis, transferred from [facility] 04/[address] 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 Found to have 2nd degree heart block, planning pacemaker placement Contact number for responsible provider who can be reached for any questions or notifications of critical findings: [phone] If ordering provider is a trainee, enter the name and contact information of the responsible staff physician. Palmira Powell MD LAST CREATININE 0.7 (04/23/24) Report Status: Verified Date Reported: APR 24, 2024 Date Verified: APR 24, 2024 [facility] E-Sig:/ES/SADIA DEE MD Report: PROCEDURES: Placement of [...] anesthesia. Using real-time CT fluoroscopy, a 5 Guamanian Yueh catheter was advanced into the collection in the left lower quadrant. A wire was coiled in the collection. The tract into the collection was dilated to accommodate the 12 Guamanian locking pigtail drainage catheter. The catheter was secured to the skin with monofilament suture and connected to JUAN bulb suction. Impression: Successful placement of a 12 Guamanian locking pigtail drainage catheter in the left lower quadrant abscess. This catheter is connected to JUAN bulb suction with flushes, as ordered. I, SADIA DEE, have reviewed the images and report. Primary Interpreting Staff: SADIA DEE MD, RADIOLOGIST (Curator Herbarium) Primary Interpreting Resident: JEFFREY FLOWER MD, SOCIAL SCIENCE TEACHER /SADIA SNYDER [facility] Apr 24, 2024 02:[address] NEEDLE PLACEMENT (P): FLACA WEAVER [id number] -1950 M Exm Date: APR 24, 2024@14:11 Req Phys: TAURUS WOOD Loc: 3KS/04-24-2024@16:07 Im Loc: CT IMAGING Service: PRIMARY CARE [place] [address] (Case [id number] COMPLETE) CT SCAN FOR NEEDLE PLACEMENT (CT Detailed) CPT:75509 Reason for Study: diverticular abscess Clinical History: Report Status: Verified Date Reported: APR 24, 2024 Date Verified: APR 24, 2024 [facility] E-Sig:/ES/SADIA DEE MD Report: PROCEDURES: Placement of [...] anesthesia. Using real-time CT fluoroscopy, a 5 Guamanian Yueh catheter was advanced into the collection in the left lower quadrant. A wire was coiled in the collection. The tract into the collection was dilated to accommodate the 12 Guamanian locking pigtail drainage catheter. The catheter was secured to the skin with monofilament suture and connected to JUAN bulb suction. Impression: Successful placement of a 12 Guamanian locking pigtail drainage catheter in the left lower quadrant abscess. This catheter is connected to JUAN bulb suction with flushes, as ordered. I, SADIA DEE, have reviewed the images and report. Primary Interpreting Staff: SADIA DEE MD, RADIOLOGIST (Curator Herbarium) Primary Interpreting Resident: JEFFREY FLOWER MD, SOCIAL SCIENCE TEACHER /SADIA SNYDER [facility] Apr 23, 2024 06:[address] ABDOMEN/PELVIS: FLACA WEAVER [id number] -1950 M Exm Date: APR 23, 2024@06:36 Req Phys: LISAKRISTIEMMAMCKAY P Pat Loc: 3KS04-24-2024@10:25 [facility] Loc: OUTSOURCE CT Service: Unknown (Case [id number] COMPLETE) NON [place] CT ABDOMEN/PELVIS (CT Detailed) CPT:51303 Reason for Study: OUTSIDE STUDY Clinical History: [...] VERIFIED BY: / *ELECTRONICALLY FILED* [facility] Pathology Reports: +/- 30 days of [...] MICROBIOLOGY RE PORT: Reporting Lab: [facility] [CLIA# [id number]] [place] [address] Accession [UID]: [id number] [[id number]] Received: Apr 21, 2024@08:16 Collection sample: URINE Collection date: Apr 21, 2024 07:28 Provider: ANANDA HUGGINS Comment on specimen: RECEIVED IN STERILE CUP Test(s) ordered: CULTURE & SUSCEPTIBILITY...... completed: Apr 22, 2024 * BACTERIOLOGY FINAL REPORT => Apr 22, 2024 08:38 TECH CODE: [id number] CULTURE RESULTS: NO GROWTH 24 HOURS Bacteriology Remark(s): THIS REPORT IS FINAL =--=--=--=--=--=--=--=--=--=--=--=- -=--=--=--=--=--=--=--=--=--=--=--= --=--=-- Performing Laboratory: Bacteriology Report Performed By: [facility] [CLIA# [id number]] [place] [address] [facility]
--- OUTSIDE RECORDS SUMMARY | 2024-07-16 07:11 | XMS_ITS ---
[place] DAILY HOSPITALIZATION DATA [facility] Encounter Summary Created on: July 16, 2024 FLACA WEAVER : 1950 Sex: Male Author Name [facility] [place] [facility] [place] [facility] [place] Address [address] [place] [address] Care Team Providers Care Svp Digital Sales Name Role Phone JATINDER BENITEZ Primary Care [...] PART A Sep 29, 2016 PART A [id number] JUDY WEAVER PATIENT Selected Encounter This section [...] activities for the patient from all [place] treatmentfacilities. This section includes future appointments and [...] PM AM[place]ORY - NONE [place] [facility] May 02, 2024 10:00 AM AMBULATORY - SURGERY [place] [facility] May 04, 2024 09:00 AM AMBULATORY - NONE [place] [facility] May 07, 2024 08:45 AM AMBULATORY - [place]ICINE [place] [facility] May 08, 2024 02:00 PM AMBULATORY - NONE [place] [facility] May 09, 2024 07:30 AM AMBULATORY - SURGERY [place] [facility] May 11, 2024 01:00 PM AMBULATORY - NONE [place] [facility] May 11, 2024 03:30 PM AMBULATORY - NONE [place] [facility] May 15, 2024 08:30 AM [place]IC[place] [facility] May 16, 2024 07:45 AM AMBULATORY - SURGERY [place] [facility] May 22, 2024 07:30 AM AMBULATORY - NONE [place] [facility] May 22, 2024 05:30 PM AMBULATORY - NONE [place] [facility] May 25, 2024 08:22 AM AMBULATORY - NONE [place] [facility] May 25, 2024 09:00 AM AMBULATORY - NONE [place] [facility] May 28, 2024 08:15 AM AMBULATORY - SURGERY [place] [facility] Jun 04, 2024 11:30 AM AMBULATORY [place] NONE [place] [facility] Jun 08, 2024 11:00 AM AM[place]ORY [place]GERY [place] [facility] Jun 08, 2024 12:45 PM AMBULATORY - NONE [place] [facility] Jun 08, 2024 01:15 PM AM[place]ORY - [place]ICINE [place] [facility] Jun 08, 2024 01:45 PM AMBULATORY - SURGERY [place] [facility] Active, Pending, and Scheduled Orders This section includes a listing of several types of active, pending, and scheduled orders, including clinic medications orders, diagnostic test orders, procedure orders and consult orders; where the start date of the order is 45 days before the date of the Encounter or 45 days after the date of theEncounter. The data comes from all [place] treatment facilities. Test Date/Time Test Type Test Details Facility Name Apr 26, 2024 10:10 AM Laboratory - Microbiology Order CULTURE & SUSCEPTIBILITY WOUND OTHER WC ONCE ~For Test: CULTURE & SUSCEPTIBILITY ~Culture sample from JUAN drain output [facility] Apr 26, 2024 10:10 AM Laboratory - Microbiology Order GRAM STAIN WOUND OTHER WC ONCE ~For Test: GRAM STAIN ~JUAN drain culture/gram stain [facility] May 28, 2024 12:00 AM Laboratory - Blood Bank Order TYPE & SCREEN - LAB BLOOD SP [facility] Jun 08, 2024 09:57 AM Laboratory - Chemistry Order URINALYSIS URINE WC ONCE [facility] Lab Results: +/- 30 days [...] Comment May 21, 2024 06:[address] [facility] BASIC METABOLIC PANEL+MG Specimen Type: PLASMA No comment entered. Ordering Provider: GOLDIE BENITEZ Report Released Date/Time: May 15, 2024 08:34 AM Reporting Lab: [facility] [phone] Performing Lab: [facility] [phone] CREATININE 0.9 mg/dL 0.7-1.2 UREA NITROGEN 18 mg/dL 8-26 GLUCOSE 126 mg/dL H 70-100 SODIUM 138 mmol/L 136-145 POTASSIUM 4.0 mmol/L 3.5-5.1 CHLORIDE 105 mmol/L 98-107 CO2 24 mmol/L 22-29 CALCIUM 9.8 mg/dL 8.4-10.2 MAGNESIUM 2.0 mg/dL 1.6-2.6 ANION GAP 9 mmol/L 5-15 .CREAT EGFR(CKD-EPI) >90 >60 May 04, 2024 08:[address] [facility] BASIC METABOLIC PANEL+MG Specimen Type: PLASMA No comment entered. Ordering Provider: GOLDIE BENITEZ Report Released Date/Time: May 03, 2024 12:52 PM Reporting Lab: [facility] [phone] Performing Lab: [facility] [address] CREATININE 0.7 mg/dL 0.7-1.2 UREA NITROGEN 13 mg/dL 8-26 GLUCOSE 91 mg/dL 70-100 SODIUM 141 mmol/L 136-145 POTASSIUM 3.6 mmol/L 3.5-5.1 CHLORIDE 109 mmol/L H 98-107 CO2 25 mmol/L 22-29 CALCIUM 8.9 mg/dL 8.4-10.2 MAGNESIUM 2.0 mg/dL 1.6-2.6 ANION GAP 7 mmol/L 5-15 .CREAT EGFR(CKD-EPI) >90 >60 Apr 26, 2024 07:[address] [facility] BASIC METABOLIC PANEL+MG Specimen Type: PLASMA No comment entered. Ordering Provider: JONO RANDOLPH Report Released Date/Time: Apr 25, 2024 02:50 PM Reporting Lab: [facility] [phone] Performing Lab: [facility] [address] CREATININE 0.7 mg/dL 0.7-1.2 UREA NITROGEN 15 mg/dL 8-26 GLUCOSE 106 mg/dL H 70-100 SODIUM 139 mmol/L 136-145 POTASSIUM 3.4 mmol/L L 3.5-5.1 CHLORIDE 105 mmol/L 98-107 CO2 25 mmol/L 22-29 CALCIUM 8.5 mg/dL 8.4-10.2 MAGNESIUM 2.2 mg/dL 1.6-2.6 ANION GAP 9 mmol/L 5-15 .CREAT EGFR(CKD-EPI) >90 >60 Apr 25, 2024 05:[address] [facility] BASIC METABOLIC PANEL+MG Specimen Type: PLASMA No comment entered. Ordering Provider: GIOVANNI ADLER Report Released Date/Time: Apr 25, 2024 05:04 PM Reporting Lab: [facility] [phone] Performing Lab: [facility] [phone] CREATININE 0.7 mg/dL 0.7-1.2 UREA NITROGEN 15 mg/dL 8-26 GLUCOSE 104 mg/dL H 70-100 SODIUM 139 mmol/L 136-145 POTASSIUM 3.2 mmol/L L 3.5-5.1 CHLORIDE 103 mmol/L 98-107 CO2 28 mmol/L 22-29 CALCIUM 8.5 mg/dL 8.4-10.2 MAGNESIUM 2.2 mg/dL 1.6-2.6 ANION GAP 8 mmol/L 5-15 .CREAT EGFR(CKD-EPI) >90 >60 Apr 25, 2024 07:[address] [facility] BASIC METABOLIC PANEL+MG Specimen Type: PLASMA No comment entered. Ordering Provider: GIOVANNI ADLER Report Released Date/Time: Apr 24, 2024 12:37 PM Reporting Lab: [facility] [phone] Performing Lab: [facility] [phone] CREATININE 0.7 mg/dL 0.7-1.2 UREA NITROGEN 14 mg/dL 8-26 GLUCOSE 127 mg/dL H 70-100 SODIUM 139 mmol/L 136-145 POTASSIUM 2.9 mmol/L L 3.5-5.1 CHLORIDE 101 mmol/L 98-107 CO2 29 mmol/L 22-29 CALCIUM 8.7 mg/dL 8.4-10.2 MAGNESIUM 2.3 mg/dL 1.6-2.6 ANION GAP 9 mmol/L 5-15 .CREAT EGFR(CKD-EPI) >90 >60 Apr 24, 2024 04:[address] [facility] BASIC METABOLIC PANEL+MG Specimen Type: PLASMA No comment entered. Ordering Provider: GIOVANNI ADLER Report Released Date/Time: Apr 24, 2024 12:37 PM Reporting Lab: [facility] [phone] Performing Lab: [facility] [phone] CREATININE 0.7 mg/dL 0.7-1.2 UREA NITROGEN 16 mg/dL 8-26 GLUCOSE 97 mg/dL 70-100 SODIUM 138 mmol/L 136-145 POTASSIUM 2.7 mmol/L L 3.5-5.1 CHLORIDE 99 mmol/L 98-107 CO2 30 mmol/L H 22-29 CALCIUM 8.4 mg/dL 8.4-10.2 MAGNESIUM 2.1 mg/dL 1.6-2.6 ANION GAP 9 mmol/L 5-15 .CREAT EGFR(CKD-EPI) >90 >60 Apr 24, 2024 07:[address] [facility] BASIC METABOLIC PANEL+MG Specimen Type: PLASMA Comment: Critical Value Reported To: Cait Zamorano RN 04-24-24@[address] [place] [address]. Critical value report confirmed. Ordering Provider: AARON VICTOR Report Released Date/Time: Apr 23, 2024 05:30 PM Reporting Lab: [facility] [phone] Performing Lab: [facility] [address] CREATININE 0.7 mg/dL 0.7-1.2 UREA NITROGEN 16 mg/dL 8-26 GLUCOSE 105 mg/dL H 70-100 SODIUM 138 mmol/L 136-145 POTASSIUM 2.3 mmol/L LL 3.5-5.1 CHLORIDE 98 mmol/L 98-107 CO2 29 mmol/L 22-29 CALCIUM 8.3 mg/dL L 8.4-10.2 MAGNESIUM 2.2 mg/dL 1.6-2.6 ANION GAP 11 mmol/L 5-15 .CREAT EGFR(CKD-EPI) >90 >60 Apr 24, 2024 07:[address] [facility] CBC & DIFF Specimen Type: BLOOD Comment: Automated Differential Performed Ordering Provider: AARON VICTOR Report Released Date/Time: Apr 23, 2024 05:30 PM Reporting Lab: [facility] [address] Performing Lab: [facility] [address] WBC 10.49 10*3/uL 4.0-11.0 RBC 3.83 10*6/uL [...] 0-0.1 Apr 23, 2024 01:[address] [facility] LACTIC ACID Specimen Type: PLASMA No comment entered. Ordering Provider: AARON VICTOR Report Released Date/Time: Apr 23, 2024 12:05 PM Reporting Lab: [facility] [phone] Performing Lab: [facility] [address] LACTIC ACID 1.5 mmol/L 0.5-2.2 Apr 23, 2024 01:[address] [facility] PROTHROMBIN TIME/INR Specimen Type: PLASMA No comment entered. Ordering Provider: AARON VICTOR Report Released Date/Time: Apr 23, 2024 12:05 PM Reporting Lab: [facility] [address] Performing Lab: [facility] [address] .INR 1.2 H 0.8-1.1 .PT 14.5 s H 9.4-12.5 Apr 23, 2024 01:[address] [facility] ACT PART THROMBO TIME Specimen Type: PLASMA No comment entered. Ordering Provider: AARON VICTOR Report Released Date/Time: Apr 23, 2024 12:05 PM Reporting Lab: [facility] [phone] Performing Lab: [facility] [address] APTT 29.3 s 25.1-36.5 Apr 23, 2024 01:[address] [facility] COMPREHENSIVE METABOLIC PANEL+MG Specimen Type: PLASMA No comment entered. Ordering Provider: AARON VICTOR Report Released Date/Time: Apr 23, 2024 12:05 PM Reporting Lab: [facility] [address] Performing Lab: [facility] [address] CREATININE 0.7 mg/dL 0.7-1.2 UREA NITROGEN 19 [...] >60 Apr 23, 2024 01:[address] [facility] CBC & DIFF Specimen Type: BLOOD Comment: Automated Differential Performed Ordering Provider: AARON VICTOR Report Released Date/Time: Apr 23, 2024 12:05 PM Reporting Lab: [facility] [phone] Performing Lab: [facility] [address] WBC 12.50 10*3/uL H 4.0-11.0 RBC 4.07 [...] 0-0.1 Apr 21, 2024 07:[address] [facility] URINALYSIS Specimen Type: URINE No comment entered. Ordering Provider: ANANDA HUGGINS Report Released Date/Time: Apr 21, 2024 07:37 AM Reporting Lab: [facility] [address] Performing Lab: [facility] [address] URINE COLOR COLORLESS SPECIFIC GRAVITY 1.009 1.003-1.03 [...] Source Apr 26, 2024 05:15 AM 1 [facility] Apr 26, 2024 05:14 AM 5 [facility] Apr 26, 2024 05:06 AM 1 [facility] Apr 26, 2024 01:29 AM 9 [facility] Apr 26, 2024 01:28 AM 9 [facility] Social History: Smoking Status [...] 2023 11:30 AM VA-TOBACCO FORMER USER [facility] Tobacco Use History This section includes a history of the smoking, or tobacco-related health factors, that were collected on or before the date of the Encounter. The data comes from the [place] facility where the Encounter took place. Date/Time Smoking Status/Tobacco Use Comment F tiera May 06, 2023 11:30 AM VA-TOBACCO QUIT [address] [facility] Jun 04, 2022 09:00 AM VA-TOBACCO FORMER USER [facility] Jun 04, 2022 09:00 AM VA-TOBACCO QUIT [address] [facility] Jul 10, 2021 08:00 AM VA-TOBACCO FORMER USER [facility] Jul 10, 2021 08:00 AM VA-TOBACCO QUIT 5 TO < [address] [facility] May 23, 2020 08:30 AM VA-TOBACCO FORMER USER [facility] May 23, 2020 08:30 AM VA-TOBACCO QUIT 5 TO < [address] [facility] Mar 20, 2019 04:03 PM VA-TOBACCO FORMER USER [facility] Mar 20, 2019 04:03 PM VA-TOBACCO QUIT 5 TO < [address] [facility] Mar 21, 2018 08:13 AM FORMER TOBACCO USER 7Y OR GREATE R [facility] Feb 24, 2017 09:24 AM FORMER TOBACCO USER 7Y OR GREATE R [facility] January 07, 2016 08:01 AM FORMER TOBACCO USE >1Y <7Y [facility] Feb 03, 2015 07:58 AM FORMER TOBACCO USE <1Y [facility] Feb 26, 2014 08:41 AM CURRENT TOBACCO USER [facility] May 13, 2011 01:45 PM CURRENT TOBACCO USER [facility] Advance Directives: All historical and [...] IR FISTULOGRAM OR SINOGRAM : FLACA WEAVER [id number] -1950 M Exm Date: MAY 25, 2024@09:00 Req Phys: AMINTA ESCALONA Loc: [facility] INTERVENTIONAL RADIO Img Loc: INTERVENTIONAL RADIOLOGY Service: [place] [address] (Case [id number] COMPLETE) IR FISTULOGRAM OR SINOGRAM (ANI Detailed) CPT:43374 Contrast Media : unspecified contrast media Reason [...] 25, 2024 Date Verified: MAY 25, 2024 [employer] E-Sig:/ES/DAVID BURNS MD Report: PROCEDURES 05/25/2024 9:48 [...] Primary Interpreting Staff: DAVID BURNS MD, RADIOLOGIST (Grain Unloader Machine) /CSS DAVID BURNS [facility] May 25, 2024 08:[address] (AP) ABDOMEN/PELVIS (P): FLACA WEAVER [id number] -1950 M Exm Date: MAY 25, 2024@08:23 Req Phys: DAVID BURNS Pat Loc: [facility] INTERVENTIONAL RADIO Img Loc: CT IMAGING Service: [place] [address] (Case [id number] COMPLETE) CT (AP) ABDOMEN/PELVIS W/O CONTRA(CT Detailed) CPT:72131 Reason for Study: assess abscess and possible [...] PLASMA .CREAT EGFR(CKD-E >90 Ref: >=60 Allergies: ([place] only) TERAZOSIN (Mar 13, 2015) Report Status: Verified Date Reported: MAY 25, 2024 Date Verified: MAY 25, 2024 [employer] E-Sig:/ES/JESSENIA GOODMAN MD Report: EXAM: CT abdomen and pelvis without intravenous contrast. 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 TECHNIQUE: Helical acquisition of image data was performed for the abdomen and pelvis without intravenous contrast. Dose: 512.57 mGy*cm COMPARISON: CT abdomen pelvis with contrast 05/11/[address] abdomen pelvis 04/23/2024.; CT abdomen pelvis 05/05/2020 FINDINGS: [employer]: Pigtail catheter projecting over the left hemipelvis [...] Primary Interpreting Staff: JESSENIA GOODMAN MD, RADIOLOGIST (Grain Unloader Machine) Primary Interpreting Resident: YOHANNES MELO DO, PARTS CHASER /JESSENIA LOUIE [facility] May 11, 2024 12:39 PM IR FISTULOGRAM / SINOGRAM (P): FLACA WEAVER [id number] -1950 M Exm Date: MAY 11, 2024@12:39 Req Phys: PALMIRA POWELL Loc: [facility] C/R FOLLOW-UP CLINIC (Req' Img Loc: INTERVENTIONAL RADIOLOGY Service: [place] [address] (Case [id number] COMPLETE) IR INJECTION FOR SINOGRAM DIAGNOS(ANI Detailed) CPT:01778 Contrast Media : Non-ionic Iodinated Reason for Study: s/p drain placement for diverticular abscess- assess for drain (Case [id number] COMPLETE) IR FISTULOGRAM OR SINOGRAM (ANI Detailed) CPT:92331 Contrast Media : unspecified contrast media (Case [id number] COMPLETE) IR DRAINAGE CATHETER SUPPLY (ANI Detailed) CPT:C1729 Clinical History: IS NOT under investigation for COVID-19 or is COVID-19 negative s/p drain placement for diverticular abscess- assess for drain removal Contact number for responsible provider who can be reached for any questions or notifications of critical findings: [phone] Palmira Powell MD LAST CREATININE 0.7 (05/04/24) Report Status: Verified Date Reported: MAY 11, 2024 Date Verified: MAY 11, 2024 [employer]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 May 11, 2024 11:[address] (AP) ABDOMEN/PELVIS (P): FLACA WEAVER [id number] -1950 M Exm Date: MAY 11, 2024@11:40 Req Phys: PALMIRA POWELL Loc: [facility] C/R FOLLOW-UP CLINIC (Req' Img Loc: CT IMAGING Service: [place] [address] (Case [id number] COMPLETE) CT (AP) ABDOMEN/PELVIS W CONTRAST(CT Detailed) CPT:62075 Contrast Media : Non-ionic Iodinated Reason for [...] any questions or notifications of critical findings: [phone] Palmira Powell MD LAST 3: Collection DT [...] PLASMA .CREAT EGFR(CKD-E >90 Ref: >=60 Allergies: ([place] only) TERAZOSIN (Mar 13, 2015) Report Status: Verified Date Reported: MAY 11, 2024 Date Verified: MAY 11, 2024 [employer]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 Apr 24, 2024 02:13 PM ABSCESS DRAIN PLACEMENT PERITONEAL (P): FLACA WEAVER [id number] -1950 M Exm Date: APR 24, 2024@14:13 Req Phys: TAURUS WOOD Loc: 04-24-2024@16:07 Img Loc: INTERVENTIONAL RADIOLOGY Service: [facility] [address] (Case [id number] COMPLETE) IR PERITONEAL/RETROPERITONEAL PER(ANI Detailed) CPT:88866 Reason for Study: diverticular abscess Clinical History: IS NOT under investigation for COVID-19 or is COVID-19 negative 73yo M with hx of recurrent diverticulitis, transferred from [facility] 04/[address] 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 Found to have 2nd degree heart block, planning pacemaker placement Contact number for responsible provider who can be reached for any questions or notifications of critical findings: [phone] If ordering provider is a trainee, enter the name and contact information of the responsible staff physician. Palmira Powell MD LAST CREATININE 0.7 (04/23/24) Report Status: Verified Date Reported: APR 24, 2024 Date Verified: APR 24, 2024 [employer]loader [employer] E-Sig:/ES/SADIA DEE MD Report: PROCEDURES: Placement of [...] real-time CT fluoroscopy, a 5 [place] Yueh catheter was advanced into the collection in the left lower quadrant. A wire was coiled in the collection. The tract into the collection was dilated to accommodate the 12 [place] locking pigtail drainage catheter. The catheter was secured to the skin with monofilament suture and connected to JUAN bulb suction. Impression: Successful placement of a 12 [place] locking pigtail drainage catheter in the left lower quadrant abscess. This catheter is connected to JUAN bulb suction with flushes, as ordered. I, SAIDA DEE, have reviewed the images and report. Primary Interpreting Staff: SADIA DEE MD, RADIOLOGIST (Grain Unloader Machine) Primary Interpreting Resident: JEFFREY FLOWER MD, PARTS CHASER /SADIA SNYDER [facility] Apr 24, 2024 02:[address] NEEDLE PLACEMENT (P): FLACA WEAVER [id number] -1950 M Exm Date: APR 24, 2024@14:11 Req Phys: TAURUS WOOD Loc: 3K04-24-2024@16:07 [facility] Loc: CT IMAGING Service: PR[place] [address] (Case [id number] COMPLETE) CT SCAN FOR NEEDLE PLACEMENT (CT Detailed) CPT:52187 Reason for Study: diverticular abscess Clinical History: Report Status: Verified Date Reported: APR 24, 2024 Date Verified: APR 24, 2024 Grain Unloader Machine E-Sig:/ES/SADIA DEE MD Report: PROCEDURES: Placement of [...] real-time CT fluoroscopy, a 5 [place] Yueh catheter was advanced into the collection in the left lower quadrant. A wire was coiled in the collection. The tract into the collection was dilated to accommodate the 12 [place] locking pigtail drainage catheter. The catheter was secured to the skin with monofilament suture and connected to JUAN bulb suction. Impression: Successful placement of a 12 [place] locking pigtail drainage catheter in the left lower quadrant abscess. This catheter is connected to JUAN bulb suction with flushes, as ordered. I, SADIA DEE, have reviewed the images and report. Primary Interpreting Staff: SADIA DEE MD, RADIOLOGIST (Grain Unloader Machine) Primary Interpreting Resident: JEFFREY FLOWER MD, PARTS CHASER /SADIA SNYDER [facility] Apr 23, 2024 06:[address] ABDOMEN/PELVIS: FLACA WEAVER [id number] -1950 M Ex Date: APR 23, 2024@06:36 Req Phys: MCKAY VICTOR Pat Loc: 3KS/04-24-2024@10:25 [facility] Loc: OUTSOURCE CT Service: Unknown (Case [id number] COMPLETE) NON [place] CT ABDOMEN/PELVIS (CT Detailed) CPT:24276 Reason for Study: OUTSIDE STUDY Clinical History: [...] Code: VERIFIED BY: / *ELECTRONICALLY FILED* [facility] Pathology Reports: +/- 30 days [...] LR MICROBIOLOGY RE PORT: Reporting Lab: [facility] [CLIA# [id number]] [place] [address] Accession [UID]: [id number] [[id number]] Received: Apr 21, 2024@08:16 Collection sample: URINE Collection date: Apr 21, 2024 07:28 Provider: ANANDA HUGGINS Comment on specimen: RECEIVED IN STERILE CUP Test(s) ordered: CULTURE & SUSCEPTIBILITY...... completed: Apr 22, 2024 * BACTERIOLOGY FINAL REPORT => Apr 22, 2024 08:38 TECH CODE: [id number] CULTURE RESULTS: NO GROWTH 24 HOURS Bacteriology Remark(s): THIS REPORT IS FINAL =--=--=--=--=--=--=--=--=--=--=--=- -=--=--=--=--=--=--=--=--=--=--=--= --=--=-- Performing Laboratory: Bacteriology Report Performed By: [facility] [CLIA# [id number]] [employer] [place] [address] [facility]
--- OUTSIDE RECORDS SUMMARY | 2024-07-16 07:11 | XMS_ITS ---
[place] DAILY HOSPITALIZATION DATA [facility] HCS Encounter Summary Created on: July 16, 2024 FLACA WEAVER : 1950 Sex: Male Author Name [facility] [facility] [place] Address [address] [place] [address] Care Team Providers Care Bronc Buster Name Role Phone JATINDER BENITEZ Primary Care [...] PART A Sep 29, 2016 PART A [id number] [phone] JUDY WEAVER PATIENT Selected Encounter This section [...] PM AMBULATORY - NONE [place] [facility] May 02, 2024 10:00 AM AMBULATORY - SURGERY [place] [facility] May 04, 2024 09:00 AM AMBULATORY - NONE [place] [facility] May 07, 2024 08:45 AM AMBULATORY - MEDICINE [place] [facility] May 08, 2024 02:00 PM AMBULATORY - NONE [place] [facility] May 09, 2024 07:30 AM AMBULATORY - SURGERY [place] [facility] May 11, 2024 01:00 PM AMBULATORY - NONE [place] [facility] May 11, 2024 03:30 PM AMBULATORY - NONE [place] [facility] May 15, 2024 08:30 AM AMBULATORY - MEDICINE [place] [facility] May 16, 2024 07:45 AM AMBULATORY - SURGERY [place] [facility] May 22, 2024 07:30 AM AMBULATORY - NONE [place] [facility] May 22, 2024 05:30 PM AMBULATORY - NONE [place] [facility] May 25, 2024 08:22 AM AMBULATORY - NONE [place] [facility] May 25, 2024 09:00 AM AMBULATORY - NONE [place] [facility] May 28, 2024 08:15 AM AMBULATORY - SURGERY [place] [facility] Jun 04, 2024 11:30 AM AMBULATORY - NONE [place] [facility] Jun 08, 2024 11:00 AM AMBULATORY - SURGERY [place] [facility] Jun 08, 2024 12:45 PM AMBULATORY - NONE [place] [facility] Jun 08, 2024 01:15 PM AMBULATORY - MEDICINE [place] [facility] Jun 08, 2024 01:45 PM AMBULATORY - SURGERY [place] [facility] Active, Pending, and Scheduled Orders [...] Test: GRAM STAIN ~JUAN drain culture/gram stain [facility] Apr 26, 2024 10:10 AM Laboratory - Microbiology Order CULTURE & SUSCEPTIBILITY WOUND OTHER WC ONCE ~For Test: CULTURE & SUSCEPTIBILITY ~Culture sample from JUAN drain output [facility] May 28, 2024 12:00 AM Laboratory - Blood Bank Order TYPE & SCREEN - LAB BLOOD SP [facility] Jun 08, 2024 09:57 AM Laboratory - Chemistry Order URINALYSIS URINE WC ONCE [facility] Lab Results: +/- 30 days [...] Range Comment May 21, 2024 06:59 AM [facility] BASIC METABOLIC PANEL+MG Specimen Type: PLASMA No comment entered. Ordering Provider: GOLDIE BENITEZ Report Released Date/Time: May 15, 2024 08:34 AM Reporting Lab: [facility] [phone] Performing Lab: [facility] [address] CREATININE 0.9 mg/dL 0.7-1.2 UREA NITROGEN 18 mg/dL 8-26 GLUCOSE 126 mg/dL H 70-100 SODIUM 138 mmol/L 136-145 POTASSIUM 4.0 mmol/L 3.5-5.1 CHLORIDE 105 mmol/L 98-107 CO2 24 mmol/L 22-29 CALCIUM 9.8 mg/dL 8.4-10.2 MAGNESIUM 2.0 mg/dL 1.6-2.6 ANION GAP 9 mmol/L 5-15 .CREAT EGFR(CKD-EPI) >90 >60 May 04, 2024 08:36 AM [facility] BASIC METABOLIC PANEL+MG Specimen Type: PLASMA No comment entered. Ordering Provider: GOLDIE BENITEZ Report Released Date/Time: May 03, 2024 12:52 PM Reporting Lab: [facility] [phone] Performing Lab: [facility] [address] CREATININE 0.7 mg/dL 0.7-1.2 UREA NITROGEN 13 mg/dL 8-26 GLUCOSE 91 mg/dL 70-100 SODIUM 141 mmol/L 136-145 POTASSIUM 3.6 mmol/L 3.5-5.1 CHLORIDE 109 mmol/L H 98-107 CO2 25 mmol/L 22-29 CALCIUM 8.9 mg/dL 8.4-10.2 MAGNESIUM 2.0 mg/dL 1.6-2.6 ANION GAP 7 mmol/L 5-15 .CREAT EGFR(CKD-EPI) >90 >60 Apr 26, 2024 07:16 AM [facility] BASIC METABOLIC PANEL+MG Specimen Type: PLASMA No comment entered. Ordering Provider: JONO RANDOLPH Report Released Date/Time: Apr 25, 2024 02:50 PM Reporting Lab: [facility] [phone] Performing Lab: [facility] [address] CREATININE 0.7 mg/dL 0.7-1.2 UREA NITROGEN 15 mg/dL 8-26 GLUCOSE 106 mg/dL H 70-100 SODIUM 139 mmol/L 136-145 POTASSIUM 3.4 mmol/L L 3.5-5.1 CHLORIDE 105 mmol/L 98-107 CO2 25 mmol/L 22-29 CALCIUM 8.5 mg/dL 8.4-10.2 MAGNESIUM 2.2 mg/dL 1.6-2.6 ANION GAP 9 mmol/L 5-15 .CREAT EGFR(CKD-EPI) >90 >60 Apr 25, 2024 05:10 PM [facility] BASIC METABOLIC PANEL+MG Specimen Type: PLASMA No comment entered. Ordering Provider: GIOVANNI ADLER Report Released Date/Time: Apr 25, 2024 05:04 PM Reporting Lab: [facility] [address] Performing Lab: [facility] [address] CREATININE 0.7 mg/dL 0.7-1.2 UREA NITROGEN 15 mg/dL 8-26 GLUCOSE 104 mg/dL H 70-100 SODIUM 139 mmol/L 136-145 POTASSIUM 3.2 mmol/L L 3.5-5.1 CHLORIDE 103 mmol/L 98-107 CO2 28 mmol/L 22-29 CALCIUM 8.5 mg/dL 8.4-10.2 MAGNESIUM 2.2 mg/dL 1.6-2.6 ANION GAP 8 mmol/L 5-15 .CREAT EGFR(CKD-EPI) >90 >60 Apr 25, 2024 07:46 AM [facility] BASIC METABOLIC PANEL+MG Specimen Type: PLASMA No comment entered. Ordering Provider: GIOVANNI ADLER Report Released Date/Time: Apr 24, 2024 12:37 PM Reporting Lab: [facility] [phone] Performing Lab: [facility] [address] CREATININE 0.7 mg/dL 0.7-1.2 UREA NITROGEN 14 mg/dL 8-26 GLUCOSE 127 mg/dL H 70-100 SODIUM 139 mmol/L 136-145 POTASSIUM 2.9 mmol/L L 3.5-5.1 CHLORIDE 101 mmol/L 98-107 CO2 29 mmol/L 22-29 CALCIUM 8.7 mg/dL 8.4-10.2 MAGNESIUM 2.3 mg/dL 1.6-2.6 ANION GAP 9 mmol/L 5-15 .CREAT EGFR(CKD-EPI) >90 >60 Apr 24, 2024 04:42 PM [facility] BASIC METABOLIC PANEL+MG Specimen Type: PLASMA No comment entered. Ordering Provider: GIOVANNI ADLER Report Released Date/Time: Apr 24, 2024 12:37 PM Reporting Lab: [facility] [address] Performing Lab: [facility] [address] CREATININE 0.7 mg/dL 0.7-1.2 UREA NITROGEN 16 mg/dL 8-26 GLUCOSE 97 mg/dL 70-100 SODIUM 138 mmol/L 136-145 POTASSIUM 2.7 mmol/L L 3.5-5.1 CHLORIDE 99 mmol/L 98-107 CO2 30 mmol/L H 22-29 CALCIUM 8.4 mg/dL 8.4-10.2 MAGNESIUM 2.1 mg/dL 1.6-2.6 ANION GAP 9 mmol/L 5-15 .CREAT EGFR(CKD-EPI) >90 >60 Apr 24, 2024 07:36 AM [facility] BASIC METABOLIC PANEL+MG Specimen Type: PLASMA Comment: Critical Value Reported To: Cait Zamorano RN 04-24-24@[address] [place] [address]. Critical value report confirmed. Ordering Provider: AARON VICTOR Report Released Date/Time: Apr 23, 2024 05:30 PM Reporting Lab: [facility] [phone] Performing Lab: [facility] [address] CREATININE 0.7 mg/dL 0.7-1.2 UREA NITROGEN 16 mg/dL 8-26 GLUCOSE 105 mg/dL H 70-100 SODIUM 138 mmol/L 136-145 POTASSIUM 2.3 mmol/L LL 3.5-5.1 CHLORIDE 98 mmol/L 98-107 CO2 29 mmol/L 22-29 CALCIUM 8.3 mg/dL L 8.4-10.2 MAGNESIUM 2.2 mg/dL 1.6-2.6 ANION GAP 11 mmol/L 5-15 .CREAT EGFR(CKD-EPI) >90 >60 Apr 24, 2024 07:35 AM [facility] CBC & DIFF Specimen Type: BLOOD Comment: Automated Differential Performed Ordering Provider: AARON VICTOR Report Released Date/Time: Apr 23, 2024 05:30 PM Reporting Lab: [facility] [address] Performing Lab: [facility] [address] WBC 10.49 10*3/uL 4.0-11.0 RBC 3.83 10*6/uL [...] 10*3/uL 0-0.1 Apr 23, 2024 01:20 PM [facility] LACTIC ACID Specimen Type: PLASMA No comment entered. Ordering Provider: AARON VICTOR Report Released Date/Time: Apr 23, 2024 12:05 PM Reporting Lab: [facility] [phone] Performing Lab: [facility] [address] LACTIC ACID 1.5 mmol/L 0.5-2.2 Apr 23, 2024 01:20 PM [facility] PROTHROMBIN TIME/INR Specimen Type: PLASMA No comment entered. Ordering Provider: AARON VICTOR Report Released Date/Time: Apr 23, 2024 12:05 PM Reporting Lab: [facility] [address] Performing Lab: [facility] [address] .INR 1.2 H 0.8-1.1 .PT 14.5 s H 9.4-12.5 Apr 23, 2024 01:20 PM [facility] ACT PART THROMBO TIME Specimen Type: PLASMA No comment entered. Ordering Provider: AARON VICTOR Report Released Date/Time: Apr 23, 2024 12:05 PM Reporting Lab: [facility] [address] Performing Lab: [facility] [address] APTT 29.3 s 25.1-36.5 Apr 23, 2024 01:20 PM [facility] COMPREHENSIVE METABOLIC PANEL+MG Specimen Type: PLASMA No comment entered. Ordering Provider: AARON VICTOR Report Released Date/Time: Apr 23, 2024 12:05 PM Reporting Lab: [facility] [address] Performing Lab: [facility] [address] CREATININE 0.7 mg/dL 0.7-1.2 UREA NITROGEN 19 [...] >90 >60 Apr 23, 2024 01:20 PM [facility] CBC & DIFF Specimen Type: BLOOD Comment: Automated Differential Performed Ordering Provider: AARON VICTOR Report Released Date/Time: Apr 23, 2024 12:05 PM Reporting Lab: [facility] [address] Performing Lab: [facility] [address] WBC 12.50 10*3/uL H 4.0-11.0 RBC 4.07 [...] 10*3/uL 0-0.1 Apr 21, 2024 07:28 AM [facility] URINALYSIS Specimen Type: URINE No comment entered. Ordering Provider: ANANDA HUGGINS Report Released Date/Time: Apr 21, 2024 07:37 AM Reporting Lab: [facility] [address] Performing Lab: [facility] [address] URINE COLOR COLORLESS SPECIFIC GRAVITY 1.009 1.003-1.03 [...] Source Apr 25, 2024 08:51 PM 5 [facility] Apr 25, 2024 08:50 PM 5 [facility] Apr 25, 2024 04:53 PM 6 [facility] Apr 25, 2024 04:11 PM 6 [facility] Apr 25, 2024 11:59 AM 6 [facility] Social History: Smoking Status [...] 06, 2023 11:30 AM VA-TOBACCO FORMER USER [facility] Tobacco Use History This section includes a history of the smoking, or tobacco-related health factors, that were collected on or before the date of the Encounter. The data comes from the [place] facility where the Encounter took place. Date/Time Smoking Status/Tobacco Use Comment F tiera May 06, 2023 11:30 AM VA-TOBACCO QUIT 15 YRS OR MORE [facility] Jun 04, 2022 09:00 AM VA-TOBACCO FORMER USER [facility] Jun 04, 2022 09:00 AM VA-TOBACCO QUIT 15 YRS OR MORE [facility] Jul 10, 2021 08:00 AM VA-TOBACCO FORMER USER [facility] Jul 10, 2021 08:00 AM VA-TOBACCO QUIT 5 TO < 15 YRS [facility] May 23, 2020 08:30 AM VA-TOBACCO FORMER USER [facility] May 23, 2020 08:30 AM VA-TOBACCO QUIT 5 TO < 15 YRS [facility] Mar 20, 2019 04:03 PM VA-TOBACCO FORMER USER [facility] Mar 20, 2019 04:03 PM VA-TOBACCO QUIT 5 TO < 15 YRS [facility] Mar 21, 2018 08:13 AM FORMER TOBACCO USER 7Y OR GREATE R [facility] Feb 24, 2017 09:24 AM FORMER TOBACCO USER 7Y OR GREATE R [facility] January 07, 2016 08:01 AM FORMER TOBACCO USE >1Y <7Y [facility] Feb 03, 2015 07:58 AM FORMER TOBACCO USE <1Y [facility] Feb 26, 2014 08:41 AM CURRENT TOBACCO USER [facility] May 13, 2011 01:45 PM CURRENT TOBACCO USER [facility] Advance Directives: All historical and [...] 23, 2016 CLINICAL WARNING [facility] Radiology Reports: +/- 30 days [...] IR FISTULOGRAM OR SINOGRAM : FLACA WEAVER [id number] -1950 M Exm Date: MAY 25, 2024@09:00 Req Phys: AMINTA ESCALONA Loc: [facility] XRAY INTERVENTIONAL RADIO Img Loc: INTERVENTIONAL RADIOLOGY Service: [place] [address] (Case [id number] COMPLETE) IR FISTULOGRAM OR SINOGRAM (ANI Detailed) CPT:24318 Contrast Media : unspecified contrast media Reason for Study: s/p drain placement for diverticular abscess- assess for drain Clinical History: IS NOT under investigation for COVID-19 or is COVID-19 negative 2 week follow up per Dr Escalona Contact number for responsible provider who can be reached for any questions or notifications of critical findings: [phone] [address] LAST 3: Collection DT Specimen Test [...] 25, 2024 Date Verified: MAY 25, 2024 [employer] E-Sig:/ES/DAVID BURNS MD Report: PROCEDURES 05/25/2024 9:48 [...] Primary Interpreting Staff: DAVID BURNS MD, RADIOLOGIST ([employer]) /CSS DAVID BURNS [facility] May 25, 2024 08:[address] (AP) ABDOMEN/PELVIS (P): FLACA WEAVER [id number] -1950 M Exm Date: MAY 25, 2024@08:23 Req Phys: DAVID BURNS Pat Loc: [facility] X[facility] INTERVENTIONAL RADIO Img Loc: CT IMAGING Service: [place] [address] (Case [id number] COMPLETE) CT (AP) ABDOMEN/PELVIS W/O CONTRA(CT Detailed) CPT:29968 Reason for Study: assess abscess and possible [...] PLASMA .CREAT EGFR(CKD-E >90 Ref: >=60 Allergies: (Reagan only) TERAZOSIN (Mar 13, 2015) Report Status: Verified Date Reported: MAY 25, 2024 Date Verified: MAY 25, 2024 [employer] E-Sig:/ES/JESSENIA GOODMAN MD Report: EXAM: CT abdomen and pelvis without intravenous contrast. 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 TECHNIQUE: Helical acquisition of image data was performed for the abdomen and pelvis without intravenous contrast. Dose: 512.57 mGy*cm COMPARISON: CT abdomen pelvis with contrast 05/11/[address] abdomen pelvis 04/23/2024.; CT abdomen pelvis 05/05/2020 FINDINGS: HOT WALKER: Pigtail catheter projecting over the left hemipelvis [...] Primary Interpreting Staff: JESSENIA GOODMAN MD, RADIOLOGIST ([employer]) Primary Interpreting Resident: YOHANNES MELO DO, SHIFT COMMANDER /JESSENIA LOUIE [facility] May 11, 2024 12:39 PM IR FISTULOGRAM / SINOGRAM (P): FLACA WEAVER [id number] -1950 M Exm Date: MAY 11, 2024@12:39 Req Phys: PALMIRA POWELL Loc: [facility] C/R FOLLOW-UP CLINIC (Req' Img Loc: INTERVENTIONAL RADIOLOGY Service: [place] [address] (Case [id number] COMPLETE) IR INJECTION FOR SINOGRAM DIAGNOS(ANI Detailed) CPT:82764 Contrast Media : Non-ionic Iodinated Reason for Study: s/p drain placement for diverticular abscess- assess for drain (Case [id number] COMPLETE) IR FISTULOGRAM OR SINOGRAM (ANI Detailed) CPT:23913 Contrast Media : unspecified contrast media (Case [id number] COMPLETE) IR DRAINAGE CATHETER SUPPLY (ANI Detailed) CPT:C1729 Clinical History: IS NOT under investigation for COVID-19 or is COVID-19 negative s/p drain placement for diverticular abscess- assess for drain removal Contact number for responsible provider who can be reached for any questions or notifications of critical findings: [phone] Palmira Powell MD LAST CREATININE 0.7 (05/04/24) Report Status: Verified Date Reported: MAY 11, 2024 Date Verified: MAY 11, 2024 [employer] E-Sig:/ES/AMINTA ESCALONA MD Report: PROCEDURES Abdominal drain [...] Interpreting Staff: AMINTA ESCALONA MD, INTERVENTIONAL RADIOLOGIST ([employer]) /AMINTA VELAZCO [facility] May 11, 2024 11:[address] (AP) ABDOMEN/PELVIS (P): FLACA WEAVER [id number] -1950 M Exm Date: MAY 11, 2024@11:40 Req Phys: PALMIRA POWELL Loc: [facility] C/R FOLLOW-UP CLINIC (Req' Img Loc: CT IMAGING Service: [place] [address] (Case [id number] COMPLETE) CT (AP) ABDOMEN/PELVIS W CONTRAST(CT Detailed) CPT:47561 Contrast Media : Non-ionic Iodinated Reason for [...] any questions or notifications of critical findings: [phone] Palmira Powell MD LAST 3: Collection DT [...] PLASMA .CREAT EGFR(CKD-E >90 Ref: >=60 Allergies: (Reagan only) TERAZOSIN (Mar 13, 2015) Report Status: Verified Date Reported: MAY 11, 2024 Date Verified: MAY 11, 2024 [employer] E-Sig:/ES/LISA PENDLETON MD Report: CT abdomen and [...] Primary Interpreting Staff: LISA PENDLETON MD, RADIOLOGIST ([employer]) /JRT LISA PENDLETON [facility] Apr 24, 2024 02:13 PM ABSCESS DRAIN PLACEMENT PERITONEAL (P): FLACA WEAVER [id number] -1950 M Exm Date: APR 24, 2024@14:13 Req Phys: TAURUS WOOD Loc: 04-24-2024@16:07 Img Loc: INTERVENTIONAL RADIOLOGY Service: [place] [address] (Case [id number] COMPLETE) IR PERITONEAL/RETROPERITONEAL PER(ANI Detailed) CPT:56684 Reason for Study: diverticular abscess Clinical History: IS NOT under investigation for COVID-19 or is COVID-19 negative 73yo M with hx of recurrent diverticulitis, transferred from [facility] 04/[address] 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 Found to have 2nd degree heart block, planning pacemaker placement Contact number for responsible provider who can be reached for any questions or notifications of critical findings: [phone] If ordering provider is a trainee, enter the name and contact information of the responsible staff physician. Palmira Powell MD LAST CREATININE 0.7 (04/23/24) Report Status: Verified Date Reported: APR 24, 2024 Date Verified: APR 24, 2024 [employer] E-Sig:/ES/SADIA DEE MD Report: PROCEDURES: Placement of [...] Primary Interpreting Staff: SADIA DEE MD, RADIOLOGIST ([employer]) Primary Interpreting Resident: JEFFREY FLOWER MD, SHIFT COMMANDER /SADIA SNYDER [facility] Apr 24, 2024 02:[address] NEEDLE PLACEMENT (P): FLACA WEAVER [id number] -1950 M Exm Date: APR 24, 2024@14:11 Req Phys: TAURUS WOOD Loc: 3K04-24-2024@16:07 [facility] Loc: CT IMAGING Service: [place] [address] (Case [id number] COMPLETE) CT SCAN FOR NEEDLE PLACEMENT (CT Detailed) CPT:99284 Reason for Study: diverticular abscess Clinical History: Report Status: Verified Date Reported: APR 24, 2024 Date Verified: APR 24, 2024 [employer] E-Sig:/ES/SADIA DEE MD Report: PROCEDURES: Placement of [...] Primary Interpreting Staff: SADIA DEE MD, RADIOLOGIST ([employer]) Primary Interpreting Resident: JEFFREY FLOWER MD, SHIFT COMMANDER /SADIA SNYDER [facility] Apr 23, 2024 06:[address] ABDOMEN/PELVIS: FLACA WEAVER [id number] -1950 M Ex Date: APR 23, 2024@06:36 Req Phys: MCKAY VICTOR Pat Loc: 3KS/04-24-2024@10:25 [facility] Loc: OUTSOURCE CT Service: Unknown (Case [id number] COMPLETE) NON [place] CT ABDOMEN/PELVIS (CT Detailed) CPT:33471 Reason for Study: OUTSIDE STUDY Clinical History: [...] Diagnostic Code: VERIFIED BY: / *ELECTRONICALLY FILED* [facility] Pathology Reports: +/- 30 days [...] AM LR MICROBIOLOGY RE PORT: Reporting Lab: [facility] [CLIA# [id number]] [place] [address] Accession [UID]: [id number] [[id number]] Received: Apr 21, 2024@08:16 Collection sample: URINE Collection date: Apr 21, 2024 07:28 Provider: ANANDA HUGGINS Comment on specimen: RECEIVED IN STERILE CUP Test(s) ordered: CULTURE & SUSCEPTIBILITY...... completed: Apr 22, 2024 * BACTERIOLOGY FINAL REPORT => Apr 22, 2024 08:38 TECH CODE: [id number] CULTURE RESULTS: NO GROWTH 24 HOURS Bacteriology Remark(s): THIS REPORT IS FINAL =--=--=--=--=--=--=--=--=--=--=--=- -=--=--=--=--=--=--=--=--=--=--=--= --=--=-- Performing Laboratory: Bacteriology Report Performed By: [facility] [CLIA# [id number]] [email or web address] [place] [address] [facility]
--- OUTSIDE RECORDS SUMMARY | 2024-07-16 07:11 | XMS_ITS | Encounter Summary ---
Author Name [facility] [facility] [place] Address [address] [place] [address] Care Team Providers Care Visual Presentation Manager Name Role Phone JATINDER BENITEZ Primary [...] PART A Sep 29, 2016 PART A [id number] [phone] JUDY WEAVER PATIENT Selected Encounter This section includes the information on record at [place] for the Encounter. Date/Time Encounter Type Encounter Description Reason Pro vider Source Apr 24, 2024 01:00 AM Inpatient Visit ADMIN PAT ACTIVTIES ([facility]) SYSTEM,[facility] Encounter Template Text not used [...] 2024 02:30 PM AMBULATORY - NONE [place] [facility] May 02, 2024 10:00 AM AMBULATORY - SURGERY [facility] May 04, 2024 09:00 AM AMBULATORY - NONE [place] [facility] May 07, 2024 08:45 AM AMBULATORY - MEDICINE [facility] May 08, 2024 02:00 PM AMBULATORY - NONE [place] [facility] May 09, 2024 07:30 AM [facility] [place] [facility] May 11, 2024 01:00 PM AMBULATORY - NONE [place] [facility] May 11, 2024 03:30 PM AMBULATORY - NONE [place] [facility] May 15, 2024 08:30 AM [facility] May 16, 2024 07:45 AM AMBULATORY - SURGERY [facility] May 22, 2024 07:30 [facility] May 22, 2024 05:30 PM AMBULATORY - NONE [place] [facility] May 25, 2024 08:22 AM AMBULATORY - NONE [place] [facility] May 25, 2024 09:00 AM [facility] May 28, 2024 08:15 AM AMBULATORY - SURGERY [facility] Jun 04, 2024 11:30 AM [facility] Jun 08, 2024 11:00 AM AMBULATORY - SURGERY [facility] Jun 08, 2024 12:45 PM [facility] Jun 08, 2024 01:15 PM AMBULATORY - MEDICINE [facility] Jun 08, 2024 01:45 PM AMBULATORY - SURGERY [facility] Active, Pending, and Scheduled Orders This section includes a listing of several types of active, pending, and scheduled orders, including clinic medications orders, diagnostic test orders, procedure orders and consult orders; where the start date of the order is 45 days before the date of the Encounter or 45 days after the date of theEncounter. The data comes from all [facility]. Test Date/Time Test Type Test Details Facility Name Apr 26, 2024 10:10 AM Laboratory - Microbiology Order GRAM STAIN WOUND OTHER WC ONCE ~For Test: GRAM STAIN ~JUAN drain culture/gram stain [facility] Apr 26, 2024 10:10 AM Laboratory - Microbiology Order CULTURE & SUSCEPTIBILITY WOUND OTHER WC ONCE ~For Test: CULTURE & SUSCEPTIBILITY ~Culture sample from JUAN drain output [facility] May 28, 2024 12:00 AM Laboratory - Blood Bank Order TYPE & SCREEN - LAB BLOOD SP [facility] Jun 08, 2024 09:57 AM Laboratory - Chemistry Order URINALYSIS URINE WC ONCE [facility] Lab Results: +/- 30 days [...] Range Comment May 21, 2024 06:59 AM [facility] BASIC METABOLIC PANEL+MG Specimen Type: PLASMA No comment entered. Ordering Provider: GOLDIE BENITEZ Report Released Date/Time: May 15, 2024 08:34 AM Reporting Lab: [facility] [id number] Performing Lab: [facility] [address] CREATININE 0.9 mg/dL 0.7-1.2 UREA NITROGEN 18 mg/dL 8-26 GLUCOSE 126 mg/dL H 70-100 SODIUM 138 mmol/L 136-145 POTASSIUM 4.0 mmol/L 3.5-5.1 CHLORIDE 105 mmol/L 98-107 CO2 24 mmol/L 22-29 CALCIUM 9.8 mg/dL 8.4-10.2 MAGNESIUM 2.0 mg/dL 1.6-2.6 ANION GAP 9 mmol/L 5-15 .CREAT EGFR(CKD-EPI) >90 >60 May 04, 2024 08:36 AM [facility] BASIC METABOLIC PANEL+MG Specimen Type: PLASMA No comment entered. Ordering Provider: GOLDIE BENITEZ Report Released Date/Time: May 03, 2024 12:52 PM Reporting Lab: [facility] [id number] Performing Lab: [facility] [address] CREATININE 0.7 mg/dL 0.7-1.2 UREA NITROGEN 13 mg/dL 8-26 GLUCOSE 91 mg/dL 70-100 SODIUM 141 mmol/L 136-145 POTASSIUM 3.6 mmol/L 3.5-5.1 CHLORIDE 109 mmol/L H 98-107 CO2 25 mmol/L 22-29 CALCIUM 8.9 mg/dL 8.4-10.2 MAGNESIUM 2.0 mg/dL 1.6-2.6 ANION GAP 7 mmol/L 5-15 .CREAT EGFR(CKD-EPI) >90 >60 Apr 26, 2024 07:16 AM [facility] BASIC METABOLIC PANEL+MG Specimen Type: PLASMA No comment entered. Ordering Provider: JONO RANDOLPH Report Released Date/Time: Apr 25, 2024 02:50 PM Reporting Lab: [facility] [phone] Performing Lab: [facility] [address] CREATININE 0.7 mg/dL 0.7-1.2 UREA NITROGEN 15 [...] 05:04 PM Reporting Lab: [facility] [address] Performing Lab: [facility] [address] CREATININE 0.7 mg/dL 0.7-1.2 UREA NITROGEN 15 [...] 12:37 PM Reporting Lab: [facility] [address] Performing Lab: [facility] [address] CREATININE 0.7 mg/dL 0.7-1.2 UREA NITROGEN 14 [...] 12:37 PM Reporting Lab: [facility] [address] Performing Lab: [facility] [address] CREATININE 0.7 mg/dL 0.7-1.2 UREA NITROGEN 16 [...] Critical Value Reported To: Cait Zamorano RN 04-24-24@08[facility]. Critical value report confirmed. Ordering Provider: AARON VICTOR Report Released Date/Time: Apr 23, 2024 05:30 PM Reporting Lab: [facility] [address] Performing Lab: [facility] [address] CREATININE 0.7 mg/dL 0.7-1.2 UREA NITROGEN 16 [...] 05:30 PM Reporting Lab: [facility] [address] Performing Lab: [facility] [address] WBC 10.49 10*3/uL 4.0-11.0 RBC 3.83 10*6/uL [...] 12:05 PM Reporting Lab: [facility] [address] Performing Lab: [facility] [address] LACTIC ACID 1.5 mmol/L 0.5-2.2 Apr 23, 2024 01:20 PM [facility] ACT PART THROMBO TIME Specimen Type: PLASMA No comment entered. Ordering Provider: AARON VICTOR Report Released Date/Time: Apr 23, 2024 12:05 PM Reporting Lab: [facility] [address] Performing Lab: [facility] [address] APTT 29.3 s 25.1-36.5 Apr 23, 2024 01:20 PM [facility] PROTHROMBIN TIME/INR Specimen Type: PLASMA No comment entered. Ordering Provider: AARON VICTOR Report Released Date/Time: Apr 23, 2024 12:05 PM Reporting Lab: [facility] [address] Performing Lab: [facility] [address] .INR 1.2 H 0.8-1.1 .PT 14.5 s H 9.4-12.5 Apr 23, 2024 01:20 PM [facility] COMPREHENSIVE METABOLIC PANEL+MG Specimen Type: PLASMA No comment entered. Ordering Provider: AARON VICTOR Report Released Date/Time: Apr 23, 2024 12:05 PM Reporting Lab: [facility] [address] Performing Lab: [facility] [address] CREATININE 0.7 mg/dL 0.7-1.2 UREA NITROGEN 19 [...] 12:05 PM Reporting Lab: [facility] [address] Performing Lab: [facility] [address] WBC 12.50 10*3/uL H 4.0-11.0 RBC 4.07 [...] 07:37 AM Reporting Lab: [facility] [address] Performing Lab: [facility] [address] URINE COLOR COLORLESS SPECIFIC GRAVITY 1.009 1.003-1.03 [...] Source Apr 24, 2024 10:48 PM 5 [facility] Apr 24, 2024 06:35 PM 5 [facility] Apr 24, 2024 04:00 PM 59 147/71 14 0 [facility] Apr 24, 2024 12:15 PM 0 [facility] Apr 24, 2024 10:12 AM 4 [facility] Social History: Smoking Status (Most [...] place. Date/Time Current Smoking Status Comment Juan Mnauel putnam May 06, 2023 11:30 AM VA-TOBACCO [...] this document. The data comes from all [facility]. Date Advance Directives Provider Source Mar 23, 2016 CLINICAL WARNING [place] [facility] Radiology Reports: +/- [...] FISTULOGRAM / S INOGRAM (P): FLACA WEAVER YAMIL [id number] -1950 M Exm Date: MAY 11, 2024@12:39 Req Phys: SHERRY,PALMIRA E Pat Loc: [facility] C/R FOLLOW-UP CLINIC (Req' Img Loc: INTERVENTIONAL RADIOLOGY Service: [place] [address] (Case [id number] COMPLETE) IR INJECTION FOR SINOGRAM DIAGNOS(ANI Detailed) CPT:15298 Contrast Media : Non-ionic Iodinated Reason for Study: s/p drain placement for diverticular abscess- assess for drain (Case [id number] COMPLETE) IR FISTULOGRAM OR SINOGRAM (ANI Detailed) CPT:52602 Contrast Media : unspecified contrast media (Case [id number] COMPLETE) IR DRAINAGE CATHETER SUPPLY (ANI Detailed) CPT:C1729 Clinical History: [place] IS NOT under investigation for COVID-19 or is COVID-19 negative s/p drain placement for diverticular abscess- assess for drain removal Contact number for responsible provider who can be reached for any questions or notifications of critical findings: [phone] Palmira Powell MD LAST CREATININE 0.7 (05/04/24) Report Status: Verified Date Reported: MAY 11, 2024 Date Verified: MAY 11, 2024 Electron Gun Inspector E-Sig:/ES/AMINTA ESCALONA MD Report: PROCEDURES Abdominal [...] Interpreting Staff: AMINTA ESCALONA MD, INTERVENTIONAL RADIOLOGIST (Electron Gun Inspector) /AMINTA VELAZCO [facility] May 11, 2024 11:[address] (AP) ABDOMEN/PE LVIS (P): LFACA WEAVER [id number] -1950 M Exm Date: MAY 11, 2024@11:40 Req Phys: PALMIRA POWELL Loc: [facility] C/R FOLLOW-UP CLINIC (Req' Img Loc: CT IMAGING Service: [place] [address] (Case [id number] COMPLETE) CT (AP) ABDOMEN/PELVIS W CONTRAST(CT Detailed) CPT:07677 Contrast Media : Non-ionic Iodinated Reason for [...] any questions or notifications of critical findings: [phone] Palmira Powell MD LAST 3: Collection DT [...] PLASMA .CREAT EGFR(CKD-E >90 Ref: >=60 Allergies: ([place] only) TERAZOSIN (Mar 13, 2015) Report Status: Verified Date Reported: MAY 11, 2024 Date Verified: MAY 11, 2024 Electron Gun Inspector E-Sig:/ES/LISA PENDLETON MD Report: CT abdomen [...] Primary Interpreting Staff: LISA PENDLETON MD, RADIOLOGIST (Electron Gun Inspector) /JRT LISA PENDLETON [facility] Apr 24, 2024 02:13 PM ABSCESS DRAIN PLAC EMENT PERITONEAL (P): FLACA WEAVER [id number] -1950 M Exm Date: APR 24, 2024@14:13 Req Phys: TAURUS WOOD Loc: 3K04-24-2024@16:07 Img Loc: INTERVENTIONAL RADIOLOGY Service: [facility] [address] (Case [id number] COMPLETE) IR PERITONEAL/RETROPERITONEAL PER(ANI Detailed) CPT:43642 Reason for Study: diverticular abscess Clinical History: IS NOT under investigation for COVID-19 or is COVID-19 negative 73yo M with hx of recurrent diverticulitis, transferred from [facility] 04/[address] 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 Palmira Powell MD LAST CREATININE 0.7 (04/23/24) Report Status: Verified Date Reported: APR 24, 2024 Date Verified: APR 24, 2024 Electron Gun Inspector E-Sig:/ES/SADIA DEE MD Report: PROCEDURES: Placement [...] anesthesia. Using real-time CT fluoroscopy, a 5 Zimbabwean Yueh catheter was advanced into the collection in the left lower quadrant. A wire was coiled in the collection. The tract into the collection was dilated to accommodate the 12 Zimbabwean locking pigtail drainage catheter. The catheter was secured to the skin with monofilament suture and connected to JUAN bulb suction. Impression: Successful placement of a 12 Zimbabwean locking pigtail drainage catheter in the left lower quadrant abscess. This catheter is connected to JUAN bulb suction with flushes, as ordered. I, SADIA DEE, have reviewed the images and report. Primary Interpreting Staff: SADIA DEE MD, RADIOLOGIST (Electron Gun Inspector) Primary Interpreting Resident: JEFFREY FLOWER MD, HVAC INSTALLATION TECHNICIAN /PETERB SADIA DEE [facility] Apr 24, 2024 02:[address] NEEDLE PLACEMEN T (P): FLACA WEAVER [id number] -1950 M Exm Date: APR 24, 2024@14:11 Req Phys: TAURUS WOOD Loc: 3KS/04-24-2024@16:07 Im Loc: CT IMAGING Service: [place] [address] (Case [id number] COMPLETE) CT SCAN FOR NEEDLE PLACEMENT (CT Detailed) CPT:01018 Reason for Study: diverticular abscess Clinical History: Report Status: Verified Date Reported: APR 24, 2024 Date Verified: APR 24, 2024 Electron Gun Inspector E-Sig:/ES/SADIA DEE MD Report: PROCEDURES: Placement [...] anesthesia. Using real-time CT fluoroscopy, a 5 Zimbabwean Yueh catheter was advanced into the collection in the left lower quadrant. A wire was coiled in the collection. The tract into the collection was dilated to accommodate the 12 Zimbabwean locking pigtail drainage catheter. The catheter was secured to the skin with monofilament suture and connected to JUAN bulb suction. Impression: Successful placement of a 12 Zimbabwean locking pigtail drainage catheter in the left lower quadrant abscess. This catheter is connected to JUAN bulb suction with flushes, as ordered. I, SADIA DEE, have reviewed the images and report. Primary Interpreting Staff: SADIA DEE MD, RADIOLOGIST (Electron Gun Inspector) Primary Interpreting Resident: JEFFREY FLOWER MD, HVAC INSTALLATION TECHNICIAN /B SADIA DEE [facility] Apr 23, 2024 06:36 AM [facility]ESS [facility] CT ABDOMEN/ PELVIS: FLACA WEAVER [id number] -1950 [facility] Date: APR 23, 2024@06:36 Req Phys: MCKAY VICTOR Loc: 04-24-2024@10:25 Img Loc: OUTSOURCE CT Service: Unknown (Case [id number] COMPLETE) NON SC CT ABDOMEN/PELVIS (CT Detailed) CPT:68210 Reason for Study: OUTSIDE STUDY Clinical History: [...] RE PORT: Reporting Lab: [facility] [CLIA# [id number]] [place] [address] Accession [UID]: [id number] [[id number]] Received: Apr 21, 2024@08:16 Collection sample: URINE Collection date: Apr 21, 2024 07:28 Provider: ANANDA HUGGINS Comment on specimen: RECEIVED IN STERILE CUP Test(s) ordered: CULTURE & SUSCEPTIBILITY...... completed: Apr 22, 2024 * BACTERIOLOGY FINAL REPORT => Apr 22, 2024 08:38 TECH CODE: [id number] CULTURE RESULTS: NO GROWTH 24 HOURS Bacteriology Remark(s): THIS REPORT IS FINAL =--=--=--=--=--=--=--=--=--=--=--=- -=--=--=--=--=--=--=--=--=--=--=--= --=--=-- Performing Laboratory: Bacteriology Report Performed By: [facility] [CLIA# [id number]] [place] [address] [facility] Encounter Notes: All associated encounter notes This section contains the clinical notes associated to the Encounter. Date/Time Encounter Note(s) Provider Source Apr 24, 2024 01:00 AM CRITICAL CARE UNIT NOTE: LOCAL TITLE: [facility] INPATIENT FLOWSHEET STANDARD TITLE: CRITICAL CARE UNIT NOTE DATE OF NOTE: APR 24, 2024@01:00 ENTRY DATE: APR 25, 2024@14:34:06 AUTHOR: [employer] EXP COSIGNER: URGENCY: STATUS: COMPLETED This is a place aranda only. Please see [employer] to view document. /es/ [employer] SYSTEM ICU DOCUMENT IMPORT Signed: 04/25/2024 14:34 [email or web address] [facility] Apr 24, 2024 01:00 AM CRITICAL CARE UNIT NOTE: LOCAL TITLE: [facility] RESPIRATORY THERAPY FLOWSHEET STANDARD TITLE: CRITICAL CARE UNIT NOTE DATE OF NOTE: APR 24, 2024@01:00 ENTRY DATE: APR 25, 2024@15:04:18 AUTHOR: [employer] EXP COSIGNER: URGENCY: STATUS: COMPLETED This is a place aranda only. Please see [employer] to view document. /es/ [employer] SYSTEM ICU DOCUMENT IMPORT Signed: 04/25/2024 15:04 [employer] [facility]
--- OUTSIDE RECORDS SUMMARY | 2024-07-16 07:12 | XMS_ITS | Encounter Summary ---
Author Name [facility] [place] [facility] [place] [facility] [place] Address [address] [place] [address] Care Team Providers Care Marine Underwriter Name Role Phone JATINDER BENITEZ Primary Care [...] PART A Sep 29, 2016 PART A [id number] [phone] JUDY WEAVER PATIENT Selected Encounter This section includes the information on record at [place] for the Encounter. Date/Time Encounter Type Encounter Description Reason Pro vider Source Apr 25, 2024 09:00 AM Inpatient Visit ADMIN PAT ACTIVTIES (MASNONCT) MCKAY TOBIN Encounter Template Text not used by [place] Plan of Treatment: Future Appointments (+ 6 [...] 27, 2024 02:30 PM [facility] May 02, 2024 10:00 AM AMBULATORY - SURGERY [facility] May 04, 2024 09:00 AM AMBULATORY - NONE [facility] May 07, 2024 08:45 AM AMBULATORY - MEDICINE [facility] May 08, 2024 02:00 PM AMBULATORY - NONE [facility] May 09, 2024 07:30 AM AMBULATORY - SURGERY [facility] May 11, 2024 01:00 PM AMBULATORY - NONE [facility] May 11, 2024 03:30 PM AMBULATORY - NONE [facility] May 15, 2024 08:30 AM AMBULATORY - MEDICINE [facility] May 16, 2024 07:45 AM AMBULATORY - SURGERY [facility] May 22, 2024 07:30 AM AMBULATORY - NONE [facility] May 22, 2024 05:30 PM AMBULATORY - NONE [facility] May 25, 2024 08:22 AM AMBULATORY - NONE [facility] May 25, 2024 09:00 AM AMBULATORY - NONE [facility] May 28, 2024 08:15 AM AMBULATORY - SURGERY [facility] Jun 04, 2024 11:30 AM AMBULATORY - NONE [facility] Jun 08, 2024 11:00 AM AMBULATORY - SURGERY [facility] Jun 08, 2024 12:45 PM AMBULATORY - NONE [facility] Jun 08, 2024 01:15 PM AMBULATORY - MEDICINE [facility] Jun 08, 2024 01:45 PM AMBULATORY - SURGERY [facility] Active, Pending, and [...] of theEncounter. The data comes from all [facility]. Test Date/Time Test Type Test Details Facility Name Apr 26, 2024 10:10 AM Laboratory - Microbiology Order CULTURE & SUSCEPTIBILITY WOUND OTHER WC ONCE ~For Test: CULTURE & SUSCEPTIBILITY ~Culture sample from JUAN drain output [facility] Apr 26, 2024 10:10 AM Laboratory - Microbiology Order GRAM STAIN WOUND OTHER WC ONCE ~For Test: GRAM STAIN ~JUAN drain culture/gram stain [facility] May 28, 2024 12:00 AM Laboratory - Blood Bank Order TYPE & SCREEN - LAB BLOOD SP [facility] Jun 08, 2024 09:57 AM Laboratory - Chemistry Order URINALYSIS URINE WC ONCE [facility] Lab Results: +/- 30 days of the encounter This section includes the Chemistry and Hematology Lab Results on record with [place] for the patient. Radiology Reports and Pathology Reports are provided separately, in subsequent sections. Lab Results This section contains the Chemistry/Hematology Results that were resulted 30 days before or 30 daysafter the date of the Encounter. Date/Time Source Result Type Result - Unit Interpretation Reference Range Comment May 21, 2024 06:59 AM [facility] BASIC METABOLIC PANEL+MG Specimen Type: PLASMA No comment entered. Ordering Provider: GOLDIE BENITEZ Report Released Date/Time: May 15, 2024 08:34 AM Reporting Lab: [facility] [phone] Performing Lab: [facility] [address] CREATININE 0.9 mg/dL 0.7-1.2 UREA NITROGEN 18 mg/dL 8-26 GLUCOSE 126 mg/dL H 70-100 SODIUM 138 mmol/L 136-145 POTASSIUM 4.0 mmol/L 3.5-5.1 CHLORIDE 105 mmol/L 98-107 CO2 24 mmol/L 22-29 CALCIUM 9.8 mg/dL 8.4-10.2 MAGNESIUM 2.0 mg/dL 1.6-2.6 ANION GAP 9 mmol/L 5-15 .CREAT EGFR(CKD-EPI) >90 >60 May 04, 2024 08:36 AM [facility] BASIC METABOLIC PANEL+MG Specimen Type: PLASMA No comment entered. Ordering Provider: GOLDIE BENITEZ Report Released Date/Time: May 03, 2024 12:52 PM Reporting Lab: [facility] [address] Performing Lab: [facility] [address] CREATININE 0.7 mg/dL 0.7-1.2 UREA NITROGEN 13 mg/dL 8-26 GLUCOSE 91 mg/dL 70-100 SODIUM 141 mmol/L 136-145 POTASSIUM 3.6 mmol/L 3.5-5.1 CHLORIDE 109 mmol/L H 98-107 CO2 25 mmol/L 22-29 CALCIUM 8.9 mg/dL 8.4-10.2 MAGNESIUM 2.0 mg/dL 1.6-2.6 ANION GAP 7 mmol/L 5-15 .CREAT EGFR(CKD-EPI) >90 >60 Apr 26, 2024 07:16 AM [facility] BASIC METABOLIC PANEL+MG Specimen Type: PLASMA No comment entered. Ordering Provider: JONO RANDOLPH Report Released Date/Time: Apr 25, 2024 02:50 PM Reporting Lab: [facility] [address] Performing Lab: [facility] [address] CREATININE 0.7 mg/dL 0.7-1.2 UREA NITROGEN 15 [...] Lab: [facility] [address] Performing Lab: [facility] [address] CREATININE 0.7 mg/dL 0.7-1.2 UREA NITROGEN 15 [...] Lab: [facility] [address] Performing Lab: [facility] [address] CREATININE 0.7 mg/dL 0.7-1.2 UREA NITROGEN 14 [...] Lab: [facility] [address] Performing Lab: [facility] [address] CREATININE 0.7 mg/dL 0.7-1.2 UREA NITROGEN 16 [...] PLASMA Comment: Critical Value Reported To: Cait Zaomrano RN 04-24-24@08[facility]. Critical value report confirmed. Ordering Provider: AARON VICTOR Report Released Date/Time: Apr 23, 2024 05:30 PM Reporting Lab: [facility] [address] Performing Lab: [facility] [address] CREATININE 0.7 mg/dL 0.7-1.2 UREA NITROGEN 16 [...] Lab: [facility] [address] Performing Lab: [facility] [address] WBC 10.49 10*3/uL 4.0-11.0 RBC 3.83 10*6/uL [...] Lab: [facility] [address] Performing Lab: [facility] [address] LACTIC ACID 1.5 mmol/L 0.5-2.2 Apr 23, 2024 01:20 PM [facility] ACT PART THROMBO TIME Specimen Type: PLASMA No comment entered. Ordering Provider: AARON VICTOR Report Released Date/Time: Apr 23, 2024 12:05 PM Reporting Lab: [facility] [address] Performing Lab: [facility] [address] APTT 29.3 s 25.1-36.5 Apr 23, 2024 01:20 PM [facility] PROTHROMBIN TIME/INR Specimen Type: PLASMA No comment entered. Ordering Provider: AARON VICTOR Report Released Date/Time: Apr 23, 2024 12:05 PM Reporting Lab: [facility] [address] Performing Lab: [facility] [address] .INR 1.2 H 0.8-1.1 .PT 14.5 s H 9.4-12.5 Apr 23, 2024 01:20 PM [facility] COMPREHENSIVE METABOLIC PANEL+MG Specimen Type: PLASMA No comment entered. Ordering Provider: AARON VICTOR Report Released Date/Time: Apr 23, 2024 12:05 PM Reporting Lab: [facility] [address] Performing Lab: [facility] [address] CREATININE 0.7 mg/dL 0.7-1.2 UREA NITROGEN 19 [...] Lab: [facility] [address] Performing Lab: [facility] [address] WBC 12.50 10*3/uL H 4.0-11.0 RBC 4.07 [...] Lab: [facility] [address] Performing Lab: [facility] [address] URINE COLOR COLORLESS SPECIFIC GRAVITY 1.009 1.003-1.03 [...] Source Apr 25, 2024 08:51 PM [facility] Apr 25, 2024 08:50 PM [facility] Apr 25, 2024 04:53 PM [facility] Apr 25, 2024 04:11 PM [facility] Apr 25, 2024 11:59 AM [facility] Social History: Smoking Status (Most current) and Tobacco Use (All prior to encounter date) This section includes the most current, and the historical, smoking and tobacco- related health factors from the [place] facility where the Encounter took place. Current Smoking Status This section includes the most current smoking, or tobacco-related health factor, from the [place] facility where the Encounter took place. Date/Time Current Smoking Status Comment Juan Manuel putnam May 06, 2023 11:30 AM VA-TOBACCO FORMER USER [facility] Tobacco Use History This section includes a history of the smoking, or tobacco-related health factors, that were collected on or before the date of the Encounter. The data comes from the [place] facility where the Encounter took place. Date/Time [...] ALL of a patient's completed or amended [place] Advance and Rescinded Directives. The entries below indicate that a directive exists for the patient, but an actual copy is not included with this document. The data comes from all [facility]. Date Advance Directives Provider Source Mar 23, 2016 CLINICAL WARNING [place] SANDOVAL [facility] Radiology Reports: +/- 30 days [...] the Encounter. The data comes from all [place] treatment facilities. Date/Time Radiology Report Provider Source May 25, 2024 09:00 AM IR FISTULOGRAM OR SINOGRAM : FLYNN WEAVER YAMIL [id number] -1950 M Exm Date: MAY 25, 2024@09:00 Req Phys: AMINTA ESCALONA Loc: [facility] INTERVENTIONAL RADIO Img Loc: INTERVENTIONAL RADIOLOGY Service: [place] [address] (Case [id number] COMPLETE) IR FISTULOGRAM OR SINOGRAM (ANI Detailed) CPT:33867 Contrast Media : unspecified contrast media Reason [...] 25, 2024 Date Verified: MAY 25, 2024 Keyseating Machine Set Up Operator E-Sig:/ES/DAVID BURNS MD Report: PROCEDURES 05/25/2024 9:48 [...] Primary Interpreting Staff: DAVID BURNS MD, RADIOLOGIST (Keyseating Machine Set Up Operator) /CSS DAVID BURNS [facility] May 25, 2024 08:[address] (AP) ABDOMEN/PELVIS (P): FLYNN WEAVER [id number] -1950 M Exm Date: MAY 25, 2024@08:23 Req Phys: DAVID BURNS Pat Loc: [facility] X[facility] INTERVENTIONAL RADIO Img Loc: CT IMAGING Service: [place] [address] (Case [id number] COMPLETE) CT (AP) ABDOMEN/PELVIS W/O CONTRA(CT Detailed) CPT:83452 Reason for Study: assess abscess and possible [...] PLASMA .CREAT EGFR(CKD-E >90 Ref: >=60 Allergies: ([place] only) TERAZOSIN (Mar 13, 2015) Report Status: Verified Date Reported: MAY 25, 2024 Date Verified: MAY 25, 2024 Keyseating Machine Set Up Operator E-Sig:/ES/JESSENIA GOODMAN MD Report: EXAM: CT abdomen and pelvis without intravenous contrast. 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 TECHNIQUE: Helical acquisition of image data was performed for the abdomen and pelvis without intravenous contrast. Dose: 512.57 mGy*cm COMPARISON: CT abdomen pelvis with contrast 05/11/[address] abdomen pelvis 04/23/2024.; CT abdomen pelvis 05/05/2020 FINDINGS: COMPUTER SERVICE TECHNICIAN: Pigtail catheter projecting over the left hemipelvis [...] extend anterior to the right hepatic lobe (5/72). Colonic diverticulosis. Stable mild inflammatory changes and [...] Primary Interpreting Staff: JESSENIA GOODMAN MD, RADIOLOGIST (Keyseating Machine Set Up Operator) Primary Interpreting Resident: YOHANNES MELO DO, FIBERGLASS BOAT MAKER /CMN JESSENIA GOODMAN [facility] May 11, 2024 12:39 PM IR FISTULOGRAM / SINOGRAM (P): FLYNN WEAVER [id number] -1950 M Exm Date: MAY 11, 2024@12:39 Req Phys: PALMIRA POWELL Loc: [facility] C[facility]R FOLLOW[facility]UP [facility] (Req' Img Loc: INTERVENTIONAL RADIOLOGY Service: [place] [address] (Case [id number] COMPLETE) IR INJECTION FOR SINOGRAM DIAGNOS(ANI Detailed) CPT:56706 Contrast Media : Non-ionic Iodinated Reason for Study: s/p drain placement for diverticular abscess- assess for drain (Case [id number] COMPLETE) IR FISTULOGRAM OR SINOGRAM (ANI Detailed) CPT:56124 Contrast Media : unspecified contrast media (Case 3773 COMPLETE) IR DRAINAGE CATHETER SUPPLY (ANI Detailed) CPT:C1729 Clinical History: IS NOT under investigation for COVID-19 or is COVID-19 negative s/p drain placement for diverticular abscess- assess for drain removal Contact number for responsible provider who can be reached for any questions or notifications of critical findings: [phone] Palmira Powell MD LAST CREATININE 0.7 (05/04/24) Report Status: Verified Date Reported: MAY 11, 2024 Date Verified: MAY 11, 2024 Keyseating Machine Set Up Operator E-Sig:/ES/AMINTA ESCALONA MD Report: PROCEDURES Abdominal [...] Interpreting Staff: AMINTA ESCALONA MD, INTERVENTIONAL RADIOLOGIST (Keyseating Machine Set Up Operator) /AMINTA VELAZCO [facility] May 11, 2024 11:[address] (AP) ABDOMEN/PELVIS (P): FLYNN WEAVER [id number] -1950 M Exm Date: MAY 11, 2024@11:40 Req Phys: PALMIRA POWELL Loc: [facility] C/R FOLLOW-UP CLINIC (Req' Img Loc: CT IMAGING Service: [place] [address] (Case [id number] COMPLETE) CT (AP) ABDOMEN/PELVIS W CONTRAST(CT Detailed) CPT:46511 Contrast Media : Non-ionic Iodinated Reason for [...] any questions or notifications of critical findings: [phone] Palmira Powell MD LAST 3: Collection DT [...] PLASMA .CREAT EGFR(CKD-E >90 Ref: >=60 Allergies: ([place] only) TERAZOSIN (Mar 13, 2015) Report Status: Verified Date Reported: MAY 11, 2024 Date Verified: MAY 11, 2024 Keyseating Machine Set Up Operator E-Sig:/ES/LISA PENDLETON MD Report: CT abdomen [...] Primary Interpreting Staff: LISA PENDLETON MD, RADIOLOGIST (Keyseating Machine Set Up Operator) /JRT LISA PENDLETON [facility] Apr 24, 2024 02:13 PM ABSCESS DRAIN PLACEMENT PERITONEAL (P): FLYNN WEAVER [id number] -1950 M Exm Date: APR 24, 2024@14:13 Req Phys: TAURUS WOOD Loc: 3K04-24-2024@16:07 Im Loc: INTERVENTIONAL RADIOLOGY Service: PRIMARY [place] [address] (Case [id number] COMPLETE) IR PERITONEAL/RETROPERITONEAL PER(ANI Detailed) CPT:46406 Reason for Study: diverticular abscess Clinical History: [...] any questions or notifications of critical findings: [phone] If ordering provider is a trainee, enter the name and contact information of the responsible staff physician. Palmira Powell MD LAST CREATININE 0.7 (04/23/24) Report Status: Verified Date Reported: APR 24, 2024 Date Verified: APR 24, 2024 Keyseating Machine Set Up Operator E-Sig:/ES/SADIA DEE MD Report: PROCEDURES: Placement [...] anesthesia. Using real-time CT fluoroscopy, a 5 Bruneian Yueh catheter was advanced into the collection in the left lower quadrant. A wire was coiled in the collection. The tract into the collection was dilated to accommodate the 12 Bruneian locking pigtail drainage catheter. The catheter was secured to the skin with monofilament suture and connected to JUAN bulb suction. Impression: Successful placement of a 12 Bruneian locking pigtail drainage catheter in the left lower quadrant abscess. This catheter is connected to JUAN bulb suction with flushes, as ordered. I, SADIA DEE, have reviewed the images and report. Primary Interpreting Staff: SADIA DEE MD, RADIOLOGIST (Keyseating Machine Set Up Operator) Primary Interpreting Resident: JEFFREY FLOWER MD, FIBERGLASS BOAT MAKER /SADIA SNYDER [facility] Apr 24, 2024 02:[address] NEEDLE PLACEMENT (P): FLYNN WEAVER [id number] -1950 M Ex Date: APR 24, 2024@14:11 Req Phys: TAURUS WOOD Loc: 3KS/04-24-2024@16:07 Im Loc: CT IMAGING Service: PRIMARY [place] [address] (Case [id number] COMPLETE) CT SCAN FOR NEEDLE PLACEMENT (CT Detailed) CPT:35769 Reason for Study: diverticular abscess Clinical History: Report Status: Verified Date Reported: APR 24, 2024 Date Verified: APR 24, 2024 Keyseating Machine Set Up Operator E-Sig:/ES/SADIA DEE MD Report: PROCEDURES: Placement [...] anesthesia. Using real-time CT fluoroscopy, a 5 Bruneian Yueh catheter was advanced into the collection in the left lower quadrant. A wire was coiled in the collection. The tract into the collection was dilated to accommodate the 12 Bruneian locking pigtail drainage catheter. The catheter was secured to the skin with monofilament suture and connected to JUAN bulb suction. Impression: Successful placement of a 12 Bruneian locking pigtail drainage catheter in the left lower quadrant abscess. This catheter is connected to JUAN bulb suction with flushes, as ordered. I, SADIA DEE, have reviewed the images and report. Primary Interpreting Staff: SADIA DEE MD, RADIOLOGIST (Keyseating Machine Set Up Operator) Primary Interpreting Resident: JEFFREY FLOWER MD, FIBERGLASS BOAT MAKER /SADIA SNYDER [facility] Apr 23, 2024 06:[address] ABDOMEN/PELVIS: MEGFLYNN YAMIL [id number] -1950 M Exm Date: APR 23, 2024@06:36 Req Phys: FREDDYRICHAGRETCHENMCKAY Sagar Pat Loc: 3K04-24-2024@10:25 [facility] Loc: OUTSOURCE CT Service: Unknown (Case [id number] COMPLETE) [place] CT ABDOMEN/PELVIS (CT Detailed) CPT:44044 Reason for Study: OUTSIDE STUDY Clinical History: OUTSIDE STUDY Report Status: Electronically Filed Date Reported: APR 24, 2024 Report: This is an outside Imaging study and/or report imported for continuity of patient care. This Imaging study and/or report was not reviewed or verified by a [place] Radiologist. Impression: This is an outside Imaging study and/or report imported for continuity of patient care. This Imaging study and/or report was not reviewed or verified by a [place] Radiologist. Primary Diagnostic Code: VERIFIED BY: / [...] the Encounter. The data comes from all [place] treatment facilities. Date/Time Pathology Report Provider Source Apr 21, 2024 07:28 AM LR MICROBIOLOGY RE PORT: Reporting Lab: [facility] [CLIA# [id number]] [place] [address] Accession [UID]: [id number] [[id number]] Received: Apr 21, 2024@08:16 Collection sample: URINE Collection date: Apr 21, 2024 07:28 Provider: ANANDA HUGGINS Comment on specimen: RECEIVED IN STERILE CUP Test(s) ordered: CULTURE & SUSCEPTIBILITY...... completed: Apr 22, 2024 * BACTERIOLOGY FINAL REPORT => Apr 22, 2024 08:38 TECH CODE: [id number] CULTURE RESULTS: NO GROWTH 24 HOURS Bacteriology Remark(s): THIS REPORT IS FINAL =--=--=--=--=--=--=--=--=--=--=--=- -=--=--=--=--=--=--=--=--=--=--=--= --=--=-- Performing Laboratory: Bacteriology Report Performed By: [facility] [CLIA# [id number]] [address] [place] [address] [facility] Encounter Notes: All associated encounter notes This section contains the clinical notes associated to the Encounter. Date/Time Encounter Note(s) Provider Source Apr 25, 2024 03:33 PM PUBLIC HEALTH NOTE : LOCAL TITLE: DISRUPTIVE BEHAVIOR NOTE STANDARD TITLE: PUBLIC HEALTH NOTE DATE OF NOTE: APR 25, 2024@15:33 ENTRY DATE: APR 27, 2024@10:33:30 AUTHOR: MCKAY TOBIN COSIGNER: URGENCY: STATUS: COMPLETED DISRUPTIVE BEHAVIOR NOTE Has ADDENDA THIS PROGRESS NOTE MAY ONLY BE ENTERED BY APPROVED MEMBERS OF THE DISRUPTIVE BEHAVIOR COMMITTEE. GENERAL USE IS PROHIBITED. CONTACT DISRUPTIVE BEHAVIOR COMMITTEE CO-CHAIRPERSONS FOR FURTHER INFORMATION/CLARIFICATION. An event was reported to the Disruptive Behavior Reporting System (DBRS). For information contact your Disruptive Behavior Committee and provide DBRS reference number [phone] ([phone] (09/08/22), [phone] (08/02/17), [phone] (04/22/17), [phone] (03/23/16), [phone] (01/13/16)). The DBRS electronic report was reviewed by the Disruptive Behavior Committee (DBC) on Mar. The committee decided that the behavior reported warrants a letter that will be sent to the expressing our concern and reinforcing Medical Center expectations of appropriate behavior. [facility] Tracking Number: [id number] The letter reads as follows: April 27, 2024 [facility] Flynn Weaver [address] [place] [address] Dear Mr. Weaver, It has been reported to the Disruptive Behavior Committee (DBC) of the [facility] ([facility]) that on April 25, 2024, during your recent hospitalization at the [facility], you were verbally abusive toward staff. Specifically, [...] was established with the approval of the [facility] manager of software development to address issues regarding the safety of veterans receiving care here and the staff who provide that care. The DBC reviews reports from staff and patients and recommends corrective action to prevent reoccurrences of inappropriate behavior. The DBC is comprised of [facility] staff from a variety of health care disciplines as well as the [place] Police and a Patient Ball Machine Operator. We hope your future visits to this medical center are pleasant and your medical needs are met with courtesy and professionalism. If you become frustrated with the care you receive, or if you have any questions or need additional information regarding this letter, please address your concerns in a more constructive way by contacting a Patient Ball Machine Operator at . Respectfully, The Disruptive Behavior Committee Thank you for taking the time to complete the report and for supporting our efforts to improve safety of the [facility]. /alexi/ MCKAY TOBIN, Ph.D., [employer] Youth Career Specialist Signed: 04/27/2024 10:34 Receipt Acknowledged By: * AWAITING SIGNATURE * [employer] 05/30/2024 ADDENDUM STATUS: COMPLETED Certified letter was returned as unclaimed. Will resend via standard mail. /alexi/ MCKAY TOBIN, Ph.D., Luis [employer] Youth Career Specialist Signed: 05/30/2024 11:01 MCKAY TOBIN [facility]
--- OUTSIDE RECORDS SUMMARY | 2024-07-16 07:12 | XMS_ITS | Encounter Summary ---
Author Name [facility] [place] [facility] [facility] [place] Address [address] [place] [address] Care Team Providers Care Assistant Controller Name Role Phone JATINDER BENITEZ Primary Care [...] PART A Sep 29, 2016 PART A [id number] [phone] JUDY WEAVER PATIENT Selected Encounter This section includes the [place]. Date/Time Encounter Type Encounter Description Reason Pro vider Source Apr 26, 2024 01:00 AM Inpatient Visit ADMIN PAT ACTIVTIES (GeoOPCT) SYSTEM,CIS-ARK IHE Encounter Template Text not used [...] 02:30 PM AMBULATORY - NONE [facility] May 02, 2024 10:00 AM AMBULATORY - SURGERY [facility] May 04, 2024 09:00 AM AMBULATORY - NONE [facility] May 07, 2024 08:45 AM AMBULATORY - MEDICINE [facility] May 08, 2024 02:00 PM AMBULATORY - NONE [facility] May 09, 2024 07:30 AM AMBULATORY - SURGERY [facility] May 11, 2024 01:00 PM AMBULATORY - NONE [place] [facility] May 11, 2024 03:30 PM AMBULATORY - NONE [facility] May 15, 2024 08:30 AM AMBULATORY - MEDICINE [facility] May 16, 2024 07:45 AM AMBULATORY - SURGERY [facility] May 22, 2024 07:30 AM AMBULATORY - NONE [facility] May 22, 2024 05:30 PM AMBULATORY - NONE [facility] May 25, 2024 08:22 AM AMBULATORY - NONE [facility] May 25, 2024 09:00 AM AMBULATORY - NONE [facility] May 28, 2024 08:15 AM AMBULATORY - SURGERY [facility] Jun 04, 2024 11:30 AM AMBULATORY - NONE [facility] Jun 08, 2024 11:00 AM AMBULATORY - SURGERY [facility] Jun 08, 2024 12:45 PM AMBULATORY - NONE [facility] Jun 08, 2024 01:15 PM AMBULATORY - MEDICINE [facility] Jun 08, 2024 01:45 PM AMBULATORY - SURGERY [facility] Active, Pending, and Scheduled Orders This section includes a listing of several types of active, pending, and scheduled orders, including clinic medications orders, diagnostic test orders, procedure orders and consult orders; where the start date of the order is 45 days before the date of the Encounter or 45 days after the date of theEncounter. The data comes from all [facility]. Test Date/Time Test Type Test Details Facility Name Apr 26, 2024 10:10 AM Laboratory - Microbiology Order CULTURE & SUSCEPTIBILITY WOUND OTHER WC ONCE ~For Test: CULTURE & SUSCEPTIBILITY ~Culture sample from JUAN drain output [facility] Apr 26, 2024 10:10 AM Laboratory - Microbiology Order GRAM STAIN WOUND OTHER WC ONCE ~For Test: GRAM STAIN ~JUAN drain culture/gram stain [facility] May 28, 2024 12:00 AM Laboratory - Blood Bank Order TYPE & SCREEN - LAB BLOOD SP [facility] Jun 08, 2024 09:57 AM Laboratory - Chemistry Order URINALYSIS URINE WC ONCE [facility] Lab Results: +/- 30 days [...] Range Comment May 21, 2024 06:59 AM [facility] BASIC METABOLIC PANEL+MG Specimen Type: PLASMA No comment entered. Ordering Provider: GOLDIE BENITEZ Report Released Date/Time: May 15, 2024 08:34 AM Reporting Lab: [facility] [address] Performing Lab: [facility] [address] CREATININE 0.9 mg/dL 0.7-1.2 UREA NITROGEN 18 mg/dL 8-26 GLUCOSE 126 mg/dL H 70-100 SODIUM 138 mmol/L 136-145 POTASSIUM 4.0 mmol/L 3.5-5.1 CHLORIDE 105 mmol/L 98-107 CO2 24 mmol/L 22-29 CALCIUM 9.8 mg/dL 8.4-10.2 MAGNESIUM 2.0 mg/dL 1.6-2.6 ANION GAP 9 mmol/L 5-15 .CREAT EGFR(CKD-EPI) >90 >60 May 04, 2024 08:36 AM [facility] BASIC METABOLIC PANEL+MG Specimen Type: PLASMA No comment entered. Ordering Provider: GOLDIE BENITEZ Report Released Date/Time: May 03, 2024 12:52 PM Reporting Lab: [facility] [address] Performing Lab: [facility] [address] CREATININE 0.7 mg/dL 0.7-1.2 UREA NITROGEN 13 mg/dL 8-26 GLUCOSE 91 mg/dL 70-100 SODIUM 141 mmol/L 136-145 POTASSIUM 3.6 mmol/L 3.5-5.1 CHLORIDE 109 mmol/L H 98-107 CO2 25 mmol/L 22-29 CALCIUM 8.9 mg/dL 8.4-10.2 MAGNESIUM 2.0 mg/dL 1.6-2.6 ANION GAP 7 mmol/L 5-15 .CREAT EGFR(CKD-EPI) >90 >60 Apr 26, 2024 07:16 AM [facility] BASIC METABOLIC PANEL+MG Specimen Type: PLASMA No comment entered. Ordering Provider: JONO RANDOLPH Report Released Date/Time: Apr 25, 2024 02:50 PM Reporting Lab: [facility] [address] Performing Lab: [facility] [address] CREATININE 0.7 mg/dL 0.7-1.2 UREA NITROGEN 15 mg/dL 8-26 GLUCOSE 106 mg/dL H 70-100 SODIUM 139 mmol/L 136-145 POTASSIUM 3.4 mmol/L L 3.5-5.1 CHLORIDE 105 mmol/L 98-107 CO2 25 mmol/L 22-29 CALCIUM 8.5 mg/dL 8.4-10.2 MAGNESIUM 2.2 mg/dL 1.6-2.6 ANION GAP 9 mmol/L 5-15 .CREAT EGFR(CKD-EPI) >90 >60 Apr 25, 2024 05:10 PM [facility] BASIC METABOLIC PANEL+MG Specimen Type: PLASMA No comment entered. Ordering Provider: GIOVANNI ADLER Report Released Date/Time: Apr 25, 2024 05:04 PM Reporting Lab: [facility] [address] Performing Lab: [facility] [address] CREATININE 0.7 mg/dL 0.7-1.2 UREA NITROGEN 15 mg/dL 8-26 GLUCOSE 104 mg/dL H 70-100 SODIUM 139 mmol/L 136-145 POTASSIUM 3.2 mmol/L L 3.5-5.1 CHLORIDE 103 mmol/L 98-107 CO2 28 mmol/L 22-29 CALCIUM 8.5 mg/dL 8.4-10.2 MAGNESIUM 2.2 mg/dL 1.6-2.6 ANION GAP 8 mmol/L 5-15 .CREAT EGFR(CKD-EPI) >90 >60 Apr 25, 2024 07:46 AM [facility] BASIC METABOLIC PANEL+MG Specimen Type: PLASMA No comment entered. Ordering Provider: GIOVANNI ADLER Report Released Date/Time: Apr 24, 2024 12:37 PM Reporting Lab: [facility] [address] Performing Lab: [facility] [address] CREATININE 0.7 mg/dL 0.7-1.2 UREA NITROGEN 14 mg/dL 8-26 GLUCOSE 127 mg/dL H 70-100 SODIUM 139 mmol/L 136-145 POTASSIUM 2.9 mmol/L L 3.5-5.1 CHLORIDE 101 mmol/L 98-107 CO2 29 mmol/L 22-29 CALCIUM 8.7 mg/dL 8.4-10.2 MAGNESIUM 2.3 mg/dL 1.6-2.6 ANION GAP 9 mmol/L 5-15 .CREAT EGFR(CKD-EPI) >90 >60 Apr 24, 2024 04:42 PM [facility] BASIC METABOLIC PANEL+MG Specimen Type: PLASMA No comment entered. Ordering Provider: GIOVANNI ADLER Report Released Date/Time: Apr 24, 2024 12:37 PM Reporting Lab: [facility] [address] Performing Lab: [facility] [address] CREATININE 0.7 mg/dL 0.7-1.2 UREA NITROGEN 16 mg/dL 8-26 GLUCOSE 97 mg/dL 70-100 SODIUM 138 mmol/L 136-145 POTASSIUM 2.7 mmol/L L 3.5-5.1 CHLORIDE 99 mmol/L 98-107 CO2 30 mmol/L H 22-29 CALCIUM 8.4 mg/dL 8.4-10.2 MAGNESIUM 2.1 mg/dL 1.6-2.6 ANION GAP 9 mmol/L 5-15 .CREAT EGFR(CKD-EPI) >90 >60 Apr 24, 2024 07:36 AM [facility] BASIC METABOLIC PANEL+MG Specimen Type: PLASMA Comment: Critical Value Reported To: Cait Zamorano RN 04-24-24@08[facility]. Critical value report confirmed. Ordering Provider: AARON VICTOR Report Released Date/Time: Apr 23, 2024 05:30 PM Reporting Lab: [facility] [address] Performing Lab: [facility] [address] CREATININE 0.7 mg/dL 0.7-1.2 UREA NITROGEN 16 mg/dL 8-26 GLUCOSE 105 mg/dL H 70-100 SODIUM 138 mmol/L 136-145 POTASSIUM 2.3 mmol/L LL 3.5-5.1 CHLORIDE 98 mmol/L 98-107 CO2 29 mmol/L 22-29 CALCIUM 8.3 mg/dL L 8.4-10.2 MAGNESIUM 2.2 mg/dL 1.6-2.6 ANION GAP 11 mmol/L 5-15 .CREAT EGFR(CKD-EPI) >90 >60 Apr 24, 2024 07:35 AM [facility] CBC & DIFF Specimen Type: BLOOD Comment: Automated Differential Performed Ordering Provider: AARON VICTOR Report Released Date/Time: Apr 23, 2024 05:30 PM Reporting Lab: [facility] [address] Performing Lab: [facility] [address] WBC 10.49 10*3/uL 4.0-11.0 RBC 3.83 10*6/uL [...] 10*3/uL 0-0.1 Apr 23, 2024 01:20 PM [facility] LACTIC ACID Specimen Type: PLASMA No comment entered. Ordering Provider: AARON VICTOR Report Released Date/Time: Apr 23, 2024 12:05 PM Reporting Lab: [facility] [address] Performing Lab: [facility] [address] LACTIC ACID 1.5 mmol/L 0.5-2.2 Apr 23, 2024 01:20 PM [facility] PROTHROMBIN TIME/INR Specimen Type: PLASMA No comment entered. Ordering Provider: AARON VICTOR Report Released Date/Time: Apr 23, 2024 12:05 PM Reporting Lab: [facility] [address] Performing Lab: [facility] [address] .INR 1.2 H 0.8-1.1 .PT 14.5 s H 9.4-12.5 Apr 23, 2024 01:20 PM [facility] ACT PART THROMBO TIME Specimen Type: PLASMA No comment entered. Ordering Provider: AARON VICTOR Report Released Date/Time: Apr 23, 2024 12:05 PM Reporting Lab: [facility] [address] Performing Lab: [facility] [address] APTT 29.3 s 25.1-36.5 Apr 23, 2024 01:20 PM [facility] COMPREHENSIVE METABOLIC PANEL+MG Specimen Type: PLASMA No comment entered. Ordering Provider: AARON VICTOR Report Released Date/Time: Apr 23, 2024 12:05 PM Reporting Lab: [facility] [address] Performing Lab: [facility] [address] CREATININE 0.7 mg/dL 0.7-1.2 UREA NITROGEN 19 [...] >90 >60 Apr 23, 2024 01:20 PM [facility] CBC & DIFF Specimen Type: BLOOD Comment: Automated Differential Performed Ordering Provider: AARON VICTOR Report Released Date/Time: Apr 23, 2024 12:05 PM Reporting Lab: [facility] [address] Performing Lab: [facility] [address] WBC 12.50 10*3/uL H 4.0-11.0 RBC 4.07 [...] 10*3/uL 0-0.1 Apr 21, 2024 07:28 AM [facility] URINALYSIS Specimen Type: URINE No comment entered. Ordering Provider: ANANDA HUGGINS Report Released Date/Time: Apr 21, 2024 07:37 AM Reporting Lab: [facility] [address] Performing Lab: [facility] [address] URINE COLOR COLORLESS SPECIFIC GRAVITY 1.009 1.003-1.03 [...] Source Apr 26, 2024 05:15 AM 1 [facility] Apr 26, 2024 05:14 AM 5 [facility] Apr 26, 2024 05:06 AM 1 [facility] Apr 26, 2024 01:29 AM 9 [facility] Apr 26, 2024 01:28 AM 9 [facility] Social History: Smoking Status [...] 06, 2023 11:30 AM VA-TOBACCO FORMER USER [facility] Tobacco Use History This section includes a history of the smoking, or tobacco-related health factors, that were collected on or before the date of the Encounter. The data comes from the [place] facility where the Encounter took place. Date/Time Smoking Status/Tobacco Use Comment Angelo mott May 06, 2023 11:30 AM VA-TOBACCO QUIT 15 YRS OR MORE [facility] Jun 04, 2022 09:00 AM VA-TOBACCO FORMER USER [facility] Jun 04, 2022 09:00 AM VA-TOBACCO QUIT 15 YRS OR MORE [facility] Jul 10, 2021 08:00 AM VA-TOBACCO FORMER USER [facility] Jul 10, 2021 08:00 AM VA-TOBACCO QUIT 5 TO < 15 YRS [facility] May 23, 2020 08:30 AM VA-TOBACCO FORMER USER [facility] May 23, 2020 08:30 AM VA-TOBACCO QUIT 5 TO < 15 YRS [facility] Mar 20, 2019 04:03 PM VA-TOBACCO FORMER USER [facility] Mar 20, 2019 04:03 PM VA-TOBACCO QUIT 5 TO < 15 YRS [facility] Mar 21, 2018 08:13 AM FORMER TOBACCO USER 7Y OR GREATE R [facility] Feb 24, 2017 09:24 AM FORMER TOBACCO USER 7Y OR GREATE R [facility] January 07, 2016 08:01 AM FORMER TOBACCO USE >1Y <7Y [facility] Feb 03, 2015 07:58 AM FORMER TOBACCO USE <1Y [facility] Feb 26, 2014 08:41 AM CURRENT TOBACCO USER [facility] May 13, 2011 01:45 PM CURRENT TOBACCO USER [facility] Advance Directives: All historical and [...] 23, 2016 CLINICAL WARNING [place] [facility] Radiology Reports: +/- 30 [...] IR FISTULOGRAM OR SINOGRAM : FLACA WEAVER YAMIL [id number] -1950 M Exm Date: MAY 25, 2024@09:00 Req Phys: AMINTA ESCALONA Loc: [facility] XRAY INTERVENTIONAL RADIO Img Loc: INTERVENTIONAL RADIOLOGY Service: [place] [address] (Case [id number] COMPLETE) IR FISTULOGRAM OR SINOGRAM (ANI Detailed) CPT:48347 Contrast Media : unspecified contrast media Reason for Study: s/p drain placement for diverticular abscess- assess for drain Clinical History: [place] IS NOT under investigation for COVID-19 or [...] 25, 2024 Date Verified: MAY 25, 2024 Executive Meeting Manager E-Sig:/ES/DAVID BURNS MD Report: PROCEDURES 05/25/2024 9:48 [...] Primary Interpreting Staff: DAVID BURNS MD, RADIOLOGIST (Executive Meeting Manager) /CSS DAVID BURNS [facility] May 25, 2024 08:[address] (AP) ABDOMEN/PELVIS (P): FLACA WEAVER [id number] -1950 M Exm Date: MAY 25, 2024@08:23 Req Phys: DAVID BURNS Pat Loc: [facility] XRAY INTERVENTIONAL RADIO Img Loc: CT IMAGING Service: [place] [address] (Case [id number] COMPLETE) CT (AP) ABDOMEN/PELVIS W/O CONTRA(CT Detailed) CPT:07451 Reason for Study: assess abscess and possible [...] PLASMA .CREAT EGFR(CKD-E >90 Ref: >=60 Allergies: ([place] only) TERAZOSIN (Mar 13, 2015) Report Status: Verified Date Reported: MAY 25, 2024 Date Verified: MAY 25, 2024 Executive Meeting Manager E-Sig:/ES/JESSENIA GOODMAN MD Report: EXAM: CT abdomen and pelvis without intravenous contrast. 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 TECHNIQUE: Helical acquisition of image data was performed for the abdomen and pelvis without intravenous contrast. Dose: 512.57 mGy*cm COMPARISON: CT abdomen pelvis with contrast 05/11/[address] abdomen pelvis 04/23/2024.; CT abdomen pelvis 05/05/2020 FINDINGS: SIDE SAWYER: Pigtail catheter projecting over the left hemipelvis [...] Primary Interpreting Staff: JESSENIA GOODMAN MD, RADIOLOGIST (Executive Meeting Manager) Primary Interpreting Resident: YOHANNES MELO DO, VETERINARY TOXICOLOGIST /CMN JESSENIA GOODMAN [facility] May 11, 2024 12:39 PM IR FISTULOGRAM / SINOGRAM (P): FLACA EWAVER [id number] -1950 M Exm Date: MAY 11, 2024@12:39 Req Phys: PALMIRA POWELL Loc: [facility] C[facility]R FOLLOW[facility] (Req' Img Loc: INTERVENTIONAL RADIOLOGY Service: [place] [address] (Case [id number] COMPLETE) IR INJECTION FOR SINOGRAM DIAGNOS(ANI Detailed) CPT:27030 Contrast Media : Non-ionic Iodinated Reason for Study: s/p drain placement for diverticular abscess- assess for drain (Case [id number] COMPLETE) IR FISTULOGRAM OR SINOGRAM (ANI Detailed) CPT:75722 Contrast Media : unspecified contrast media (Case [id number] COMPLETE) IR DRAINAGE CATHETER SUPPLY (ANI Detailed) CPT:C1729 Clinical History: IS NOT under investigation for COVID-19 or is COVID-19 negative s/p drain placement for diverticular abscess- assess for drain removal Contact number for responsible provider who can be reached for any questions or notifications of critical findings: [phone] Palmira Powell MD LAST CREATININE 0.7 (05/04/24) Report Status: Verified Date Reported: MAY 11, 2024 Date Verified: MAY 11, 2024 Executive Meeting Manager E-Sig:/ES/AMINTA ESCALONA MD Report: PROCEDURES Abdominal [...] with sinogram in IR. Primary Interpreting Staff: MAINTA ESCALONA MD, INTERVENTIONAL RADIOLOGIST (Executive Meeting Manager) /AMINTA VELAZCO [facility] May 11, 2024 11:[address] (AP) ABDOMEN/PELVIS (P): FLACA WEAVER [id number] -1950 M Exm Date: MAY 11, 2024@11:40 Req Phys: PALMIRA POWELL Loc: [facility] C/R FOLLOW-UP [facility] (Req' Img Loc: CT IMAGING Service: [place] [address] (Case [id number] COMPLETE) CT (AP) ABDOMEN/PELVIS W CONTRAST(CT Detailed) CPT:45134 Contrast Media : Non-ionic Iodinated Reason for [...] any questions or notifications of critical findings: [phone] Palmira Powell MD LAST 3: Collection DT [...] PLASMA .CREAT EGFR(CKD-E >90 Ref: >=60 Allergies: ([place] only) TERAZOSIN (Mar 13, 2015) Report Status: Verified Date Reported: MAY 11, 2024 Date Verified: MAY 11, 2024 Executive Meeting Manager E-Sig:/ES/LISA PENDLETON MD Report: CT abdomen [...] Primary Interpreting Staff: LISA PENDLETON MD, RADIOLOGIST (Executive Meeting Manager) /JRT LISA PENDLETON [facility] Apr 24, 2024 02:13 PM ABSCESS DRAIN PLACEMENT PERITONEAL (P): FLACA WEAVER [id number] -1950 M Exm Date: APR 24, 2024@14:13 Req Phys: TAURUS WOOD Loc: 3K04-24-2024@16:07 Im Loc: INTERVENTIONAL RADIOLOGY Service: PRIMARY CARE [place] [address] (Case [id number] COMPLETE) IR PERITONEAL/RETROPERITONEAL PER(ANI Detailed) CPT:16849 Reason for Study: diverticular abscess Clinical History: [place] IS NOT under investigation for COVID-19 or is COVID-19 negative 73yo M with hx of recurrent diverticulitis, transferred from [facility] 04/[address] 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 Found to have 2nd degree heart block, planning pacemaker placement Contact number for responsible provider who can be reached for any questions or notifications of critical findings: [phone] If ordering provider is a trainee, enter the name and contact information of the responsible staff physician. Palmira Powell MD LAST CREATININE 0.7 (04/23/24) Report Status: Verified Date Reported: APR 24, 2024 Date Verified: APR 24, 2024 Executive Meeting Manager E-Sig:/ES/SADIA DEE MD Report: PROCEDURES: Placement [...] anesthesia. Using real-time CT fluoroscopy, a 5 Micronesian Yueh catheter was advanced into the collection in the left lower quadrant. A wire was coiled in the collection. The tract into the collection was dilated to accommodate the 12 Micronesian locking pigtail drainage catheter. The catheter was secured to the skin with monofilament suture and connected to JUAN bulb suction. Impression: Successful placement of a 12 Micronesian locking pigtail drainage catheter in the left lower quadrant abscess. This catheter is connected to JUAN bulb suction with flushes, as ordered. I, SADIA DEE, have reviewed the images and report. Primary Interpreting Staff: SADIA DEE MD, RADIOLOGIST (Executive Meeting Manager) Primary Interpreting Resident: JEFFREY FLOWER MD, VETERINARY TOXICOLOGIST /SADIA SNYDER [facility] Apr 24, 2024 02:[address] NEEDLE PLACEMENT (P): FLACA EWAVER [id number] -1950 M Ex Date: APR 24, 2024@14:11 Req Phys: TAURUS WOOD Loc: 3KS/04-24-2024@16:07 Im Loc: CT IMAGING Service: PRIMARY CARE [place] [address] (Case [id number] COMPLETE) CT SCAN FOR NEEDLE PLACEMENT (CT Detailed) CPT:32467 Reason for Study: diverticular abscess Clinical History: Report Status: Verified Date Reported: APR 24, 2024 Date Verified: APR 24, 2024 Executive Meeting Manager E-Sig:/ES/SADIA DEE MD Report: PROCEDURES: Placement [...] anesthesia. Using real-time CT fluoroscopy, a 5 Micronesian Yueh catheter was advanced into the collection in the left lower quadrant. A wire was coiled in the collection. The tract into the collection was dilated to accommodate the 12 Micronesian locking pigtail drainage catheter. The catheter was secured to the skin with monofilament suture and connected to JUAN bulb suction. Impression: Successful placement of a 12 Micronesian locking pigtail drainage catheter in the left lower quadrant abscess. This catheter is connected to JUAN bulb suction with flushes, as ordered. I, SADIA DEE, have reviewed the images and report. Primary Interpreting Staff: SADIA DEE MD, RADIOLOGIST (Executive Meeting Manager) Primary Interpreting Resident: JEFFREY FLOWER MD, VETERINARY TOXICOLOGIST /SADIA SNYDER [facility] Apr 23, 2024 06:[address] ABDOMEN/PELVIS: MEGFLACA YAMIL [id number] -1950 M Exm Date: APR 23, 2024@06:36 Req Phys: FREDDYRICHAGRETCHENMCKAY Sagar Pat Loc: 3K04-24-2024@10:25 [facility] Loc: OUTSOURCE CT Service: Unknown (Case [id number] COMPLETE) NON [place] CT ABDOMEN/PELVIS (CT Detailed) CPT:02529 Reason for Study: OUTSIDE STUDY Clinical History: [...] Diagnostic Code: VERIFIED BY: / *ELECTRONICALLY FILED* [facility] Pathology Reports: +/- 30 days [...] AM LR MICROBIOLOGY RE PORT: Reporting Lab: [facility] [CLIA# [id number]] [place] [address] Accession [UID]: [id number] [[id number]] Received: Apr 21, 2024@08:16 Collection sample: URINE Collection date: Apr 21, 2024 07:28 Provider: ANANDA HUGGINS Comment on specimen: RECEIVED IN STERILE CUP Test(s) ordered: CULTURE & SUSCEPTIBILITY...... completed: Apr 22, 2024 * BACTERIOLOGY FINAL REPORT => Apr 22, 2024 08:38 TECH CODE: [id number] CULTURE RESULTS: NO GROWTH 24 HOURS Bacteriology Remark(s): THIS REPORT IS FINAL =--=--=--=--=--=--=--=--=--=--=--=- -=--=--=--=--=--=--=--=--=--=--=--= --=--=-- Performing Laboratory: Bacteriology Report Performed By: [facility] [CLIA# [id number]] [place] [address] [facility] Encounter Notes: All associated encounter notes This section contains the clinical notes associated to the Encounter. Date/Time Encounter Note(s) Provider Source Apr 26, 2024 01:00 AM CRITICAL CARE UNIT NOTE: LOCAL TITLE: ICCA INPATIENT FLOWSHEET STANDARD TITLE: CRITICAL CARE UNIT NOTE DATE OF NOTE: APR 26, 2024@01:00 ENTRY DATE: APR 27, 2024@14:39:15 AUTHOR: SYSTEM,[employer] EXP COSIGNER: URGENCY: STATUS: COMPLETED This is a place aranda only. Please see pMDsoft to view document. /es/ [employer] SYSTEM ICU DOCUMENT IMPORT Signed: 04/27/2024 14:39 SYSTEM,[facility]-ARK [facility] Apr 26, 2024 01:00 AM CRITICAL CARE UNIT NOTE: LOCAL TITLE: ICCA RESPIRATORY THERAPY FLOWSHEET STANDARD TITLE: CRITICAL CARE UNIT NOTE DATE OF NOTE: APR 26, 2024@01:00 ENTRY DATE: APR 27, 2024@15:11:09 AUTHOR: SYSTEM,[employer] EXP COSIGNER: URGENCY: STATUS: COMPLETED This is a place aranda only. Please see pMDsoft to view document. /es/ [facility] SYSTEM ICU DOCUMENT IMPORT Signed: 04/27/2024 15:11 SYSTEM,[employer] [facility]
--- OUTSIDE RECORDS SUMMARY | 2024-07-16 07:12 | XMS_ITS | Encounter Summary ---
Author Name [facility] [place] [facility] [place] [facility] [facility] [place] Address [address] [place] [address] Care Team Providers Care Geological Sample Tester Name Role Phone JATINDER BENITEZ Primary [...] PART A Sep 29, 2016 PART A [phone] JUDY WEAVER PATIENT Selected Encounter This section includes the information on record at [place] for the Encounter. Date/Time Encounter Type Encounter Description Reason Pro vider Source Apr 25, 2024 01:00 AM Inpatient Visit ADMIN PAT ACTIVTIES (FohBohCT) SYSTEM,CIS-ARK IHE Encounter Template Text not used [...] 27, 2024 02:30 PM [facility] May 02, 2024 10:00 AM AMBULATORY - SURGERY [facility] May 04, 2024 09:00 AM [facility] N[facility] May 07, 2024 08:45 AM AMBULATORY - MEDICINE [facility] May 08, 2024 02:00 PM [facility]ONE [facility] May 09, 2024 07:30 AM AMBULATORY - SURGERY [facility] May 11, 2024 01:00 PM AMBULATORY - NONE [facility] May 11, 2024 03:30 PM [facility] NONE [facility] May 15, 2024 08:30 AM AMBULATORY - MEDICINE [facility] May 16, 2024 07:45 AM AMBULATORY - SURGERY [facility] May 22, 2024 07:30 AM AMBULATORY - NONE [facility] May 22, 2024 05:30 PM AMBUL[facility]ORY - NONE [facility] May 25, 2024 08:22 AM AMB[facility]ORY [facility] NONE [facility] May 25, 2024 09:00 AM [facility] NONE [facility] May 28, 2024 08:15 AM AMBULATORY - SURGERY [facility] Jun 04, 2024 11:30 AM AM[facility]ONE [facility] Jun 08, 2024 11:00 AM AMBULATORY - SURGERY [facility] Jun 08, 2024 12:45 PM AMBULATORY - NONE [facility] Jun 08, 2024 01:15 PM AMBULATORY - MEDICINE [facility] Jun 08, 2024 01:45 PM AMBULATORY - SURGERY [facility] Active, Pending, and Scheduled Orders This section includes a listing of several types of active, pending, and scheduled orders, including clinic medications orders, diagnostic test orders, procedure orders and consult orders; where the start date of the order is 45 days before the date of the Encounter or 45 days after the date of theEncounter. The data comes from all [facility]. Test Date/Time Test Type Test Details Facility Name Apr 26, 2024 10:10 AM Laboratory - Microbiology Order CULTURE & SUSCEPTIBILITY WOUND OTHER WC ONCE ~For Test: CULTURE & SUSCEPTIBILITY ~Culture sample from JUAN drain output [facility] Apr 26, 2024 10:10 AM Laboratory - Microbiology Order GRAM STAIN WOUND OTHER WC ONCE ~For Test: GRAM STAIN ~JUAN drain culture/gram stain [facility] May 28, 2024 12:00 AM [...] May 15, 2024 08:34 AM Reporting Lab: [facility] [phone] Performing Lab: [facility] [address] CREATININE 0.9 mg/dL 0.7-1.2 UREA NITROGEN 18 [...] May 03, 2024 12:52 PM Reporting Lab: [facility] [address] Performing Lab: [facility] [address] CREATININE 0.7 mg/dL 0.7-1.2 UREA NITROGEN 13 [...] Apr 25, 2024 02:50 PM Reporting Lab: [facility] [address] Performing Lab: [facility] [address] CREATININE 0.7 mg/dL 0.7-1.2 UREA NITROGEN 15 [...] Apr 25, 2024 05:04 PM Reporting Lab: [facility] [address] Performing Lab: [facility] [address] CREATININE 0.7 mg/dL 0.7-1.2 UREA NITROGEN 15 [...] Apr 24, 2024 12:37 PM Reporting Lab: [facility] [address] Performing Lab: [facility] [address] CREATININE 0.7 mg/dL 0.7-1.2 UREA NITROGEN 14 [...] Apr 24, 2024 12:37 PM Reporting Lab: [facility] [address] Performing Lab: [facility] [address] CREATININE 0.7 mg/dL 0.7-1.2 UREA NITROGEN 16 [...] Value Reported To: Cait Zamorano RN 04-24-24@08[facility]. Critical value report confirmed. Ordering Provider: AARON VICTOR Report Released Date/Time: Apr 23, 2024 05:30 PM Reporting Lab: [facility] [address] Performing Lab: [facility] [address] CREATININE 0.7 mg/dL 0.7-1.2 UREA NITROGEN 16 [...] Apr 23, 2024 05:30 PM Reporting Lab: [facility] [address] Performing Lab: [facility] [address] WBC 10.49 10*3/uL 4.0-11.0 RBC 3.83 10*6/uL [...] Apr 23, 2024 12:05 PM Reporting Lab: [facility] [address] Performing Lab: [facility] [address] LACTIC ACID 1.5 mmol/L 0.5-2.2 Apr 23, 2024 01:20 PM [facility] PROTHROMBIN TIME/INR Specimen Type: PLASMA No comment entered. Ordering Provider: AARON VICTOR Report Released Date/Time: Apr 23, 2024 12:05 PM Reporting Lab: [facility] [address] Performing Lab: [facility] [address] .INR 1.2 H 0.8-1.1 .PT 14.5 s H 9.4-12.5 Apr 23, 2024 01:20 PM [facility] ACT PART THROMBO TIME Specimen Type: PLASMA No comment entered. Ordering Provider: AARON VICTOR Report Released Date/Time: Apr 23, 2024 12:05 PM Reporting Lab: [facility] [address] Performing Lab: [facility] [address] APTT 29.3 s 25.1-36.5 Apr 23, 2024 01:20 PM [facility] COMPREHENSIVE METABOLIC PANEL+MG Specimen Type: PLASMA No comment entered. Ordering Provider: AARON VICTOR Report Released Date/Time: Apr 23, 2024 12:05 PM Reporting Lab: [facility] [address] Performing Lab: [facility] [address] CREATININE 0.7 mg/dL 0.7-1.2 UREA NITROGEN 19 [...] Apr 23, 2024 12:05 PM Reporting Lab: [facility] [address] Performing Lab: [facility] [address] WBC 12.50 10*3/uL H 4.0-11.0 RBC 4.07 [...] Apr 21, 2024 07:37 AM Reporting Lab: [facility] [address] Performing Lab: [facility] [address] URINE COLOR COLORLESS SPECIFIC GRAVITY 1.009 1.003-1.03 [...] Source Apr 25, 2024 08:51 PM 5 [facility] Apr 25, 2024 08:50 PM 5 [facility] Apr 25, 2024 04:53 PM 6 [facility] Apr 25, 2024 04:11 PM 6 [facility] Apr 25, 2024 11:59 AM 6 [facility] Social History: Smoking Status (Most current) [...] data comes from all [facility]. Date Advance Directives Provider Source Mar 23, 2016 CLINICAL WARNING [place] [facility] Radiology Reports: +/- [...] FISTULOGRAM OR SINOGRAM : FLACA WEAVER YAMIL [id number] -1950 M Exm Date: MAY 25, 2024@09:00 Req Phys: AMINTA ESCALONA Loc: [facility] XRAY INTERVENTIONAL RADIO Img Loc: INTERVENTIONAL RADIOLOGY Service: [place] [address] (Case [id number] COMPLETE) IR FISTULOGRAM OR SINOGRAM (ANI Detailed) CPT:83735 Contrast Media : unspecified contrast media Reason for Study: s/p drain placement for diverticular abscess- assess for drain Clinical History: Tom Bean IS NOT under investigation for COVID-19 or [...] 25, 2024 Date Verified: MAY 25, 2024 Split And Drum Room Supervisor E-Sig:/ES/DAVID BURNS MD Report: PROCEDURES 05/25/2024 9:48 [...] Primary Interpreting Staff: DAVID BURNS MD, RADIOLOGIST (Split And Drum Room Supervisor) /CSS DAVID BURNS [facility] May 25, 2024 08:[address] (AP) ABDOMEN/PELVIS (P): FLACA WEAVER [id number] -1950 M Exm Date: MAY 25, 2024@08:23 Req Phys: DAVID BURNS Pat Loc: [facility] XRAY INTERVENTIONAL RADIO Img Loc: CT IMAGING Service: [place] [address] (Case [id number] COMPLETE) CT (AP) ABDOMEN/PELVIS W/O CONTRA(CT Detailed) CPT:78861 Reason for Study: assess abscess and possible [...] PLASMA .CREAT EGFR(CKD-E >90 Ref: >=60 Allergies: ([place] only) TERAZOSIN (Mar 13, 2015) Report Status: Verified Date Reported: MAY 25, 2024 Date Verified: MAY 25, 2024 Split And Drum Room Supervisor E-Sig:/ES/JESSENIA GOODMAN MD Report: EXAM: CT abdomen and pelvis without intravenous contrast. 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 TECHNIQUE: Helical acquisition of image data was performed for the abdomen and pelvis without intravenous contrast. Dose: 512.57 mGy*cm COMPARISON: CT abdomen pelvis with contrast 05/11/[address] abdomen pelvis 04/23/2024.; CT abdomen pelvis 05/05/2020 FINDINGS: CONTINUOUS MINING MACHINE LODE MINER: Pigtail catheter projecting over the left hemipelvis [...] Primary Interpreting Staff: JESSENIA GOODMAN MD, RADIOLOGIST (Split And Drum Room Supervisor) Primary Interpreting Resident: YOHANNES MELO DO, REDUCING MACHINE OPERATOR /CMN JESSENIA GOODMAN [facility] May 11, 2024 12:39 PM IR FISTULOGRAM / SINOGRAM (P): FLACA WEAVER [id number] -1950 M Exm Date: MAY 11, 2024@12:39 Req Phys: PALMIRA POWELL Loc: [facility] C[facility]R [facility] (Req' Img Loc: INTERVENTIONAL RADIOLOGY Service: [place] [address] (Case [id number] COMPLETE) IR INJECTION FOR SINOGRAM DIAGNOS(ANI Detailed) CPT:45538 Contrast Media : Non-ionic Iodinated Reason for Study: s/p drain placement for diverticular abscess- assess for drain (Case [id number] COMPLETE) IR FISTULOGRAM OR SINOGRAM (ANI Detailed) CPT:25727 Contrast Media : unspecified contrast media (Case [id number] COMPLETE) IR DRAINAGE CATHETER SUPPLY (ANI Detailed) CPT:C1729 Clinical History: IS NOT under investigation for COVID-19 or is COVID-19 negative s/p drain placement for diverticular abscess- assess for drain removal Contact number for responsible provider who can be reached for any questions or notifications of critical findings: [phone] Palmira Powell MD LAST CREATININE 0.7 (05/04/24) Report Status: Verified Date Reported: MAY 11, 2024 Date Verified: MAY 11, 2024 Split And Drum Room Supervisor E-Sig:/ES/AMINTA ESCALONA MD Report: PROCEDURES Abdominal drain [...] Interpreting Staff: AMINTA ESCALONA MD, INTERVENTIONAL RADIOLOGIST (Split And Drum Room Supervisor) /AMINTA VELAZCO [facility] May 11, 2024 11:[address] (AP) ABDOMEN/PELVIS (P): FLACA WEAVER [id number] -1950 M Exm Date: MAY 11, 2024@11:40 Req Phys: PALMIRA POWELL Loc: [facility] (Req' Img Loc: CT IMAGING Service: [place] [address] (Case [id number] COMPLETE) CT (AP) ABDOMEN/PELVIS W CONTRAST(CT Detailed) CPT:62873 Contrast Media : Non-ionic Iodinated Reason for [...] any questions or notifications of critical findings: [phone] Palmira Powell MD LAST 3: Collection DT [...] PLASMA .CREAT EGFR(CKD-E >90 Ref: >=60 Allergies: ([place] only) TERAZOSIN (Mar 13, 2015) Report Status: Verified Date Reported: MAY 11, 2024 Date Verified: MAY 11, 2024 Split And Drum Room Supervisor E-Sig:/ES/LISA PENDLETON MD Report: CT abdomen and [...] Primary Interpreting Staff: LISA PENDLETON MD, RADIOLOGIST (Split And Drum Room Supervisor) /JRT LISA PENDLETON [facility] Apr 24, 2024 02:13 PM ABSCESS DRAIN PLACEMENT PERITONEAL (P): FLACA WEAVER [id number] -1950 M Exm Date: APR 24, 2024@14:13 Req Phys: TAURUS WOOD Loc: 3K04-24-2024@16:07 Im Loc: INTERVENTIONAL RADIOLOGY Service: [place] [address] (Case [id number] COMPLETE) IR PERITONEAL/RETROPERITONEAL PER(ANI Detailed) CPT:25593 Reason for Study: diverticular abscess Clinical History: Tom Bean IS NOT under investigation for COVID-19 or is COVID-19 negative 73yo M with hx of recurrent diverticulitis, transferred from OSH 04/[address] 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 Found to have 2nd degree heart block, planning pacemaker placement Contact number for responsible provider who can be reached for any questions or notifications of critical findings: [phone] If ordering provider is a trainee, enter the name and contact information of the responsible staff physician. Palmira Powell MD LAST CREATININE 0.7 (04/23/24) Report Status: Verified Date Reported: APR 24, 2024 Date Verified: APR 24, 2024 Split And Drum Room Supervisor E-Sig:/ES/SADIA DEE MD Report: PROCEDURES: Placement [...] anesthesia. Using real-time CT fluoroscopy, a 5 British Yueh catheter was advanced into the collection in the left lower quadrant. A wire was coiled in the collection. The tract into the collection was dilated to accommodate the 12 British locking pigtail drainage catheter. The catheter was secured to the skin with monofilament suture and connected to JUAN bulb suction. Impression: Successful placement of a 12 British locking pigtail drainage catheter in the left lower quadrant abscess. This catheter is connected to JUAN bulb suction with flushes, as ordered. I, SADIA DEE, have reviewed the images and report. Primary Interpreting Staff: SADIA DEE MD, RADIOLOGIST (Split And Drum Room Supervisor) Primary Interpreting Resident: JEFFREY FLOWER MD, REDUCING MACHINE OPERATOR /SADIA SNYDER [facility] Apr 24, 2024 02:[address] NEEDLE PLACEMENT (P): FLACA WEAVER [id number] -1950 M Ex Date: APR 24, 2024@14:11 Req Phys: TAURUS WOOD Loc: 3KS/04-24-2024@16:07 Im Loc: CT IMAGING Service: [place] [address] (Case [id number] COMPLETE) CT SCAN FOR NEEDLE PLACEMENT (CT Detailed) CPT:75806 Reason for Study: diverticular abscess Clinical History: Report Status: Verified Date Reported: APR 24, 2024 Date Verified: APR 24, 2024 Split And Drum Room Supervisor E-Sig:/ES/SADIA DEE MD Report: PROCEDURES: Placement [...] anesthesia. Using real-time CT fluoroscopy, a 5 British Yueh catheter was advanced into the collection in the left lower quadrant. A wire was coiled in the collection. The tract into the collection was dilated to accommodate the 12 British locking pigtail drainage catheter. The catheter was secured to the skin with monofilament suture and connected to JUAN bulb suction. Impression: Successful placement of a 12 British locking pigtail drainage catheter in the left lower quadrant abscess. This catheter is connected to JUAN bulb suction with flushes, as ordered. I, SADIA DEE, have reviewed the images and report. Primary Interpreting Staff: SADIA DEE MD, RADIOLOGIST (Split And Drum Room Supervisor) Primary Interpreting Resident: JEFFREY FLOWER MD, REDUCING MACHINE OPERATOR /SADIA SNYDER [facility] Apr 23, 2024 06:[address] ABDOMEN/PELVIS: MEGFLACA YAMIL [id number] -1950 M Exm Date: APR 23, 2024@06:36 Req Phys: FREDDYRICHAGRETCHENMCKYA Sagar Pat Loc: 3K04-24-2024@10:25 [facility] Loc: OUTSOURCE CT Service: Unknown (Case [id number] COMPLETE) NON [place] CT ABDOMEN/PELVIS (CT Detailed) CPT:87261 Reason for Study: OUTSIDE STUDY Clinical History: [...] RE PORT: Reporting Lab: [facility] [CLIA# [id number]] [place] [address] Accession [UID]: [id number] [[id number]] Received: Apr 21, 2024@08:16 Collection sample: URINE Collection date: Apr 21, 2024 07:28 Provider: ANANDA HUGGINS Comment on specimen: RECEIVED IN STERILE CUP Test(s) ordered: CULTURE & SUSCEPTIBILITY...... completed: Apr 22, 2024 * BACTERIOLOGY FINAL REPORT => Apr 22, 2024 08:38 TECH CODE: [id number] CULTURE RESULTS: NO GROWTH 24 HOURS Bacteriology Remark(s): THIS REPORT IS FINAL =--=--=--=--=--=--=--=--=--=--=--=- -=--=--=--=--=--=--=--=--=--=--=--= --=--=-- Performing Laboratory: Bacteriology Report Performed By: [facility] [CLIA# [id number]] [place] [address] [facility] Encounter Notes: All associated encounter notes This section contains the clinical notes associated to the Encounter. Date/Time Encounter Note(s) Provider Source Apr 25, 2024 01:00 AM CRITICAL CARE UNIT NOTE: LOCAL TITLE: [facility] INPATIENT FLOWSHEET STANDARD TITLE: CRITICAL CARE UNIT NOTE DATE OF NOTE: APR 25, 2024@01:00 ENTRY DATE: APR 26, 2024@14:32:59 AUTHOR: SYSTEM,[email or web address] EXP COSIGNER: URGENCY: STATUS: COMPLETED This is a place aranda only. Please see Ingo [employer] to view document. /es/ [email or web address] SYSTEM ICU DOCUMENT IMPORT Signed: 04/26/2024 14:32 SYSTEM,CIS-ARK [facility] Apr 25, 2024 01:00 AM CRITICAL CARE UNIT NOTE: LOCAL TITLE: [facility] RESPIRATORY THERAPY FLOWSHEET STANDARD TITLE: CRITICAL CARE UNIT NOTE DATE OF NOTE: APR 25, 2024@01:00 ENTRY DATE: APR 26, 2024@15:01:43 AUTHOR: SYSTEM,19pay-ARK EXP COSIGNER: URGENCY: STATUS: COMPLETED This is a place aranda only. Please see [employer] to view document. /es/ [email or web address] SYSTEM ICU DOCUMENT IMPORT Signed: 04/26/2024 15:01 SYSTEM,[email or web address]-LINYWORKS [facility]
--- OUTSIDE RECORDS SUMMARY | 2024-07-16 07:13 | XMS_ITS | Encounter Summary ---
Author Name [facility] Organization [facility] Address [address] [place] [address] Care Team Providers Care Hairspring I Inspector Name Role Phone JATINDER BENITEZ Primary Care [...] PART A Sep 29, 2016 PART A [id number] JUDY WEAVER PATIENT Selected Encounter This section includes the information on record at NH for the Encounter. Date/Time Encounter Type Encounter Description Reason Provider Source May 03, 2024 12:19 PM Outpatient Encounter TELEPHONE TRIAGE MONAE PEPE Mirna Encounter Template Text not used by NH [...] 09:00 AM AMBULATORY - NONE [place] [facility] May 07, 2024 08:45 AM AMBULATORY - MEDICINE [place] [facility] May 08, 2024 02:00 PM AMBULATORY - NONE [place] [facility] May 09, 2024 07:30 AM AMBULATORY - SURGERY [place] [facility] May 11, 2024 01:00 PM AMBULATORY - NONE [place] [facility] May 11, 2024 03:30 PM AMBULATORY - NONE [place] [facility] May 15, 2024 08:30 AM [facility]ULATORY - [place]ICINE [place] [facility] May 16, 2024 07:45 AM AMBULATORY - SURGERY [place] [facility] May 22, 2024 07:30 AM AMBULATORY - NONE [place] [facility] May 22, 2024 05:30 PM AMBULATORY - NONE [place] [facility] May 25, 2024 08:22 AM AMBULATORY - NONE [place] [facility] May 25, 2024 09:00 AM AMBULATORY - NONE [place] [facility] May 28, 2024 08:15 AM AMBULATORY - SURGERY [place] [facility] Jun 04, 2024 11:30 AM AMBULATORY - NONE [place] [facility] Jun 08, 2024 11:00 AM [facility] - [place]GERY [place] [facility] Jun 08, 2024 12:45 PM AMBULATORY - NONE [place] [facility] Jun 08, 2024 01:15 PM [facility]BULATORY - MEDICINE [place] [facility] Jun 08, 2024 01:45 PM [facility] - SURGERY [place] [facility] Jun 21, 2024 04:48 [facility] Jun 21, 2024 05:45 PM AMBULATORY - NONE [facility] [facility] [facility] Active, Pending, and Scheduled Orders This [...] stain [facility] May 28, 2024 12:00 AM Laboratory - Blood Bank Order TYPE & SCREEN - LAB BLOOD SP [facility] Jun 08, 2024 09:57 AM Laboratory - Chemistry Order URINALYSIS URINE WC ONCE [facility] Jun 12, 2024 12:00 AM Laboratory - Chemistry Order BNP PLASMA SP ONCE [facility] Lab [...] Range Comment May 21, 2024 06:59 AM [facility] BASIC METABOLIC PANEL+MG Specimen Type: PLASMA No comment entered. Ordering Provider: GOLDIE BENITEZ Report Released Date/Time: May 15, 2024 08:34 AM Reporting Lab: [facility] [address] Performing Lab: [facility] [address] CREATININE 0.9 mg/dL 0.7-1.2 UREA NITROGEN 18 mg/dL 8-26 GLUCOSE 126 mg/dL H 70-100 SODIUM 138 mmol/L 136-145 POTASSIUM 4.0 mmol/L 3.5-5.1 CHLORIDE 105 mmol/L 98-107 CO2 24 mmol/L 22-29 CALCIUM 9.8 mg/dL 8.4-10.2 MAGNESIUM 2.0 mg/dL 1.6-2.6 ANION GAP 9 mmol/L 5-15 .CREAT EGFR(CKD-EPI) >90 >60 May 04, 2024 08:36 AM [facility] BASIC METABOLIC PANEL+MG Specimen Type: PLASMA No comment entered. Ordering Provider: GOLDIE BENITEZ Report Released Date/Time: May 03, 2024 12:52 PM Reporting Lab: [facility] [address] Performing Lab: [facility] [address] CREATININE 0.7 mg/dL 0.7-1.2 UREA NITROGEN 13 mg/dL 8-26 GLUCOSE 91 mg/dL 70-100 SODIUM 141 mmol/L 136-145 POTASSIUM 3.6 mmol/L 3.5-5.1 CHLORIDE 109 mmol/L H 98-107 CO2 25 mmol/L 22-29 CALCIUM 8.9 mg/dL 8.4-10.2 MAGNESIUM 2.0 mg/dL 1.6-2.6 ANION GAP 7 mmol/L 5-15 .CREAT EGFR(CKD-EPI) >90 >60 Apr 26, 2024 07:16 AM [facility] BASIC METABOLIC PANEL+MG Specimen Type: PLASMA No comment entered. Ordering Provider: JONO RANDOLPH Report Released Date/Time: Apr 25, 2024 02:50 PM Reporting Lab: [facility] [address] Performing Lab: [facility] [address] CREATININE 0.7 mg/dL 0.7-1.2 UREA NITROGEN 15 [...] Apr 25, 2024 05:04 PM Reporting Lab: [facility] [address] Performing Lab: [facility] [address] CREATININE 0.7 mg/dL 0.7-1.2 UREA NITROGEN 15 [...] Apr 24, 2024 12:37 PM Reporting Lab: [facility] [address] Performing Lab: [facility] [address] CREATININE 0.7 mg/dL 0.7-1.2 UREA NITROGEN 14 [...] Apr 24, 2024 12:37 PM Reporting Lab: [facility] [address] Performing Lab: [facility] [address] CREATININE 0.7 mg/dL 0.7-1.2 UREA NITROGEN 16 [...] Value Reported To: Cait Zamorano RN 8-27-24@[address] [place] [address]. Critical value report confirmed. Ordering Provider: AARON VICTOR Report Released Date/Time: Apr 23, 2024 05:30 PM Reporting Lab: [facility] [address] Performing Lab: [facility] [address] CREATININE 0.7 mg/dL 0.7-1.2 UREA NITROGEN 16 [...] Apr 23, 2024 05:30 PM Reporting Lab: [facility] [address] Performing Lab: [facility] [address] WBC 10.49 10*3/uL 4.0-11.0 RBC 3.83 10*6/uL [...] Apr 23, 2024 12:05 PM Reporting Lab: [facility] [address] Performing Lab: [facility] [address] LACTIC ACID 1.5 mmol/L 0.5-2.2 Apr 23, 2024 01:20 PM [facility] ACT PART THROMBO TIME Specimen Type: PLASMA No comment entered. Ordering Provider: AARON IVCTOR Report Released Date/Time: Apr 23, 2024 12:05 PM Reporting Lab: [facility] [address] Performing Lab: [facility] [address] APTT 29.3 s 25.1-36.5 Apr 23, 2024 01:20 PM [facility] PROTHROMBIN TIME/INR Specimen Type: PLASMA No comment entered. Ordering Provider: AARON VICTOR Report Released Date/Time: Apr 23, 2024 12:05 PM Reporting Lab: [facility] [address] Performing Lab: [facility] [address] .INR 1.2 H 0.8-1.1 .PT 14.5 s H 9.4-12.5 Apr 23, 2024 01:20 PM [facility] COMPREHENSIVE METABOLIC PANEL+MG Specimen Type: PLASMA No comment entered. Ordering Provider: AARON VICTOR Report Released Date/Time: Apr 23, 2024 12:05 PM Reporting Lab: [facility] [address] Performing Lab: [facility] [address] CREATININE 0.7 mg/dL 0.7-1.2 UREA NITROGEN 19 [...] Apr 23, 2024 12:05 PM Reporting Lab: [facility] [address] Performing Lab: [facility] [address] WBC 12.50 10*3/uL H 4.0-11.0 RBC 4.07 [...] Apr 21, 2024 07:37 AM Reporting Lab: [facility] [address] Performing Lab: [facility] [address] URINE COLOR COLORLESS SPECIFIC GRAVITY 1.009 1.003-1.03 [...] place. Date/Time Smoking Status/Tobacco Use Comment F acsabas May 06, 2023 11:30 AM VA-TOBACCO QUIT [...] Mar 23, 2016 CLINICAL [facility]ING [facility] Radiology Reports: +/- 30 days [...] IR FISTULOGRAM OR SINOGRAM : FLACA WEAVER [id number] -1950 M Exm Date: MAY 25, 2024@09:00 Req Phys: AMINTA ESCALONA Pat Loc: [facility] INTERVENTIONAL RADIO Img Loc: INTERVENTIONAL RADIOLOGY Service: [place] [address] (Case [id number] COMPLETE) IR FISTULOGRAM OR SINOGRAM (ANI Detailed) CPT:23459 Contrast Media : unspecified contrast media Reason for Study: s/p drain placement for diverticular abscess- assess for drain Clinical History: [facility] IS NOT under investigation for COVID-19 or is COVID-19 negative 2 week follow up per Dr Escalona Contact number for responsible provider who can be reached for any questions or notifications of critical findings: [id number] Sonal LAST 3: Collection DT Specimen Test [...] 25, 2024 Date Verified: MAY 25, 2024 Educational Speech Language Clinician E-Sig:/ES/DAVID BURNS MD Report: PROCEDURES 05/25/2024 9:48 [...] Primary Interpreting Staff: DAVID BURNS MD, RADIOLOGIST (Educational Speech Language Clinician) /DAVID PAK [facility] May 25, 2024 08:[address] (AP) ABDOMEN/PELVIS (P): FLACA WEAVER [id number] -1950 M Exm Date: MAY 25, 2024@08:23 Req Phys: DAVID BURNS Loc: [facility] INTERVENTIONAL RADIO Img Loc: CT IMAGING Service: [place] [address] (Case [id number] COMPLETE) CT (AP) ABDOMEN/PELVIS W/O CONTRA(CT Detailed) CPT:23242 Reason for Study: assess abscess and possible drain removal Clinical History: no contrast per venancio Per Joint Commission Standards, by signing this diagnostic imaging request the ordering provider confirms they have considered patients age and recent imaging history. Defer to radiologist for final CT protocol. Contact number for responsible provider who can be reached for any questions or notifications of critical findings: [phone] kanikamirna LAST 3: Collection DT Specimen Test [...] PLASMA .CREAT EGFR(CKD-E >90 Ref: >=60 Allergies: ([place] only) TERAZOSIN (Mar 13, 2015) Report Status: Verified Date Reported: MAY 25, 2024 Date Verified: MAY 25, 2024 Educational Speech Language Clinician E-Sig:/ES/JESSENIA GOODMAN MD Report: EXAM: CT abdomen and pelvis without intravenous contrast. 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 TECHNIQUE: Helical acquisition of image data was performed for the abdomen and pelvis without intravenous contrast. Dose: 512.57 mGy*cm COMPARISON: CT abdomen pelvis with contrast 05/11/[address] abdomen pelvis 04/23/2024.; CT abdomen pelvis 05/05/2020 FINDINGS: SLIP COVER CUTTER: Pigtail catheter projecting over the left hemipelvis [...] consistent with a benign left adrenal adenoma (/110). No right adrenal nodules. GENITOURINARY: No hydronephrosis. [...] Primary Interpreting Staff: JESSENIA GOODMAN MD, RADIOLOGIST (Educational Speech Language Clinician) Primary Interpreting Resident: YOHANNES MELO DO, COLLAR STITCHER /JESSENIA LOUIE [facility] May 11, 2024 12:39 PM IR FISTULOGRAM / SINOGRAM (P): FLACA WEAVER [id number] -1950 M Exm Date: MAY 11, 2024@12:39 Req Phys: PALMIRA POWELL Loc: [facility] C/R FOLLOW-UP CLINIC (Req' Img Loc: INTERVENTIONAL RADIOLOGY Service: [place] [address] (Case [id number] COMPLETE) IR INJECTION FOR SINOGRAM DIAGNOS(ANI Detailed) CPT:73290 Contrast Media : Non-ionic Iodinated Reason for Study: s/p drain placement for diverticular abscess- assess for drain (Case [id number] COMPLETE) IR FISTULOGRAM OR SINOGRAM (ANI Detailed) CPT:54989 Contrast Media : unspecified contrast media (Case [id number] COMPLETE) IR DRAINAGE CATHETER SUPPLY (ANI Detailed) CPT:C1729 Clinical History: [facility] IS NOT under investigation for COVID-19 or is COVID-19 negative s/p drain placement for diverticular abscess- assess for drain removal Contact number for responsible provider who can be reached for any questions or notifications of critical findings: [phone] Palmira Powell MD LAST CREATININE 0.7 (05/04/24) Report Status: Verified Date Reported: MAY 11, 2024 Date Verified: MAY 11, 2024 Educational Speech Language Clinician E-Sig:/ES/AMINTA ESCALONA MD Report: PROCEDURES Abdominal drain [...] Interpreting Staff: AMINTA ESCALONA MD, INTERVENTIONAL RADIOLOGIST (Educational Speech Language Clinician) /AMINTA VELAZCO [facility] May 11, 2024 11:[address] (AP) ABDOMEN/PELVIS (P): FLACA WEAVER [id number] -1950 M Exm Date: MAY 11, 2024@11:40 Req Phys: PALMIRA POWELL Loc: [facility] C/R FOLLOW-UP CLINIC (Req' Img Loc: CT IMAGING Service: [place] [address] (Case [id number] COMPLETE) CT (AP) ABDOMEN/PELVIS W CONTRAST(CT Detailed) CPT:73994 Contrast Media : Non-ionic Iodinated Reason for [...] any questions or notifications of critical findings: [phone] Palmira Powell MD LAST 3: Collection DT [...] PLASMA .CREAT EGFR(CKD-E >90 Ref: >=60 Allergies: ([place] only) TERAZOSIN (Mar 13, 2015) Report Status: Verified Date Reported: MAY 11, 2024 Date Verified: MAY 11, 2024 Educational Speech Language Clinician E-Sig:/ES/LISA PENDLETON MD Report: CT abdomen and [...] Primary Interpreting Staff: LISA PENDLETON MD, RADIOLOGIST (Educational Speech Language Clinician) /JRT LISA PENDLETON [facility] Apr 24, 2024 02:13 PM ABSCESS DRAIN PLACEMENT PERITONEAL (P): FLACA WEAVER [id number] -1950 M Exm Date: APR 24, 2024@14:13 Req Phys: TAURUS WOOD Loc: 3KS/04-24-2024@16:07 Img Loc: INTERVENTIONAL RADIOLOGY Service: [facility] [address] (Case [id number] COMPLETE) IR PERITONEAL/RETROPERITONEAL PER(ANI Detailed) CPT:52431 Reason for Study: diverticular abscess Clinical History: IS NOT under investigation for COVID-19 or is COVID-19 negative 73yo M with hx of recurrent diverticulitis, transferred from [facility] 04/[address] 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 Found to have 2nd degree heart block, planning pacemaker placement Contact number for responsible provider who can be reached for any questions or notifications of critical findings: [phone] If ordering provider is a trainee, enter the name and contact information of the responsible staff physician. Palmira Powell MD LAST CREATININE 0.7 (04/23/24) Report Status: Verified Date Reported: APR 24, 2024 Date Verified: APR 24, 2024 Educational Speech Language Clinician E-Sig:/ES/SADIA DEE MD Report: PROCEDURES: Placement of [...] anesthesia. Using real-time CT fluoroscopy, a 5 Macedonian [employer] catheter was advanced into the collection in the left lower quadrant. A wire was coiled in the collection. The tract into the collection was dilated to accommodate the 12 Macedonian locking pigtail drainage catheter. The catheter was secured to the skin with monofilament suture and connected to JUAN bulb suction. Impression: Successful placement of a 12 Macedonian locking pigtail drainage catheter in the left lower quadrant abscess. This catheter is connected to JUAN bulb suction with flushes, as ordered. I, SADIA DEE, have reviewed the images and report. Primary Interpreting Staff: SADIA DEE MD, RADIOLOGIST (Educational Speech Language Clinician) Primary Interpreting Resident: JEFFREY FLOWER MD, COLLAR STITCHER /SADIA SNYDER [facility] Apr 24, 2024 02:[address] NEEDLE PLACEMENT (P): MEGFLACADARCI LOBO [id number] -1950 M Exm Date: APR 24, 2024@14:11 Req Phys: TAURUS WOOD Loc: 3K04-24-2024@16:07 Img Loc: CT IMAGING Service: PR[place] [address] (Case [id number] COMPLETE) CT SCAN FOR NEEDLE PLACEMENT (CT Detailed) CPT:63913 Reason for Study: diverticular abscess Clinical History: Report Status: Verified Date Reported: APR 24, 2024 Date Verified: APR 24, 2024 Educational Speech Language Clinician E-Sig:/ES/SAIDA DEE MD Report: PROCEDURES: Placement of abscess [...] anesthesia. Using real-time CT fluoroscopy, a 5 Macedonian Yueh catheter was advanced into the collection in the left lower quadrant. A wire was coiled in the collection. The tract into the collection was dilated to accommodate the 12 Macedonian locking pigtail drainage catheter. The catheter was secured to the skin with monofilament suture and connected to JUAN bulb suction. Impression: Successful placement of a 12 Macedonian locking pigtail drainage catheter in the left lower quadrant abscess. This catheter is connected to JUAN bulb suction with flushes, as ordered. I, SADIA DEE, have reviewed the images and report. Primary Interpreting Staff: SADIA DEE MD, RADIOLOGIST (Educational Speech Language Clinician) Primary Interpreting Resident: JEFFREY FLOWER MD, COLLAR STITCHER /SADIA LEWIS [facility] Apr 23, 2024 06:36 AM [facility] CT ABDOMEN/PELVIS: FLACA WEAVER [id number] -1950 M Ex Date: APR 23, 2024@06:36 Req Phys: MCKAY VICTOR Loc: 04-24-2024@10:25 [facility] [place] Loc: OUTSOURCE CT Service: Unknown (Case [id number] COMPLETE) [facility] CT ABDOMEN/PELVIS (CT Detailed) CPT:56242 Reason for Study: OUTSIDE STUDY Clinical History: [...] [facility] [CLIA# [id number]] [place] [address] Accession [UID]: [id number] [[id number]] Received: Apr 21, 2024@08:16 Collection sample: URINE Collection date: Apr 21, 2024 07:28 Provider: ANANDA HUGGINS Comment on specimen: RECEIVED IN STERILE CUP Test(s) ordered: CULTURE & SUSCEPTIBILITY...... completed: Apr 22, 2024 * BACTERIOLOGY FINAL REPORT => Apr 22, 2024 08:38 TECH CODE: [id number] CULTURE RESULTS: NO GROWTH 24 HOURS Bacteriology Remark(s): THIS REPORT IS FINAL =--=--=--=--=--=--=--=--=--=--=--=- -=--=--=--=--=--=--=--=--=--=--=--= --=--=-- Performing Laboratory: Bacteriology Report Performed By: [facility] [CLIA# [id number]] [place] [address] [facility] Encounter Notes: All associated encounter notes This section contains the clinical notes associated to the Encounter. Date/Time Encounter Note(s) Provider Source May 03, 2024 12:19 PM RN PROGRESS NOTE: LOCAL TITLE: CCC: CLINICAL TRIAGE STANDARD TITLE: RN PROGRESS NOTE DATE OF NOTE: MAY 03, 2024@12:19:43 ENTRY DATE: MAY 03, 2024@12:19:43 AUTHOR: MONAE PEPE COSIGNER: URGENCY: STATUS: COMPLETED Patient Demographics Patient Name: FLACA WEAVER Patient Primary Address: [address] [place] [id number] Patient Primary Phone: [phone] Patient : 1950 Patient Age: 73 Caller/Recipient Relation to Patient: Self Emergency Contact: NIMO PIÑA Triage Summary Conducted triage/discussed symptoms Pain Score: 0 (No Pain) Utilized the Triage Tool: Yes Chief Complaint: Swelling Of Both Feet System WHEN: Within 2 Weeks Nurse's Recommendation / WHEN: Within 2 Weeks System WHERE: Clinic Nurse's Recommendation / WHERE: [facility] Patient Disposition Patient/Caregiver agrees to plan of care: Yes Patient WHERE: Clinic/[facility] Patient WHEN: Within 2 weeks Nursing Plan and Disposition Referred Patient for In-Person Appt Transferred patient to Sched & Admin-Apt Other course(s) of action Generated msg to PACT/Provider Provided guidance for worsening symptoms: *Caller/Patient* advised to call facilities [facility] Clinical Contact Center or seek immediate medical attention for new or worsening symptoms Nurse Summary Nurse Summary: PATIENT CONCERN/DURATION/ONSET: [facility] c/o swelling of bilateral feet and ankles x1 week. He states it started when he was in the hospital last week with diverticulitis. Denies fevers, redness, drainage, pain, new/worsening shortness of breath, or weight gain. is also concerned that his Lisinopril was stopped, would like to discuss restarting. WHAT HAS PATIENT TRIED TO TREAT THE SYMPTOMS: Under desk pedal bike with no relief. HISTORY/PREVIOUS TREATMENT: Htn Cannabis misuse CAD Hld WHAT IS PATIENT GOAL FOR THE CALL: Appointment Was Virtual Care Visit considered? 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 Appointment available within recommended time frame, scheduled with [facility]. Message [employer] Agriculture Technician sent to PACT for medication question. Caller agrees with plan of care and verbalizes s/s to seek medical attention as well as home care advice offered (e.g. if symptoms worsen or new symptoms present should seek medical care) and as outlined in education section below. Best contact for [facility] is [phone] (Verified). This note was created by a 3 [facility] RN. Please do not alert this nurse by adding as a signer for future communications. Alerts are not monitored by this user, please reach out to [facility] Leadership instead if indicated. Clinical Contact Center Codes Clinic/Location: 3 [facility] PHONE [facility] RN Decision Support System Output: Triage Complete Triage Date: 05/03/2024, 12:08 PM Triage Note: Decision Support Tool Used: [facility] Phone Triage Li, 03 May 2024 17:05:42 +0000 [facility] Demographics 73 y/o Male Results CC: Swelling Of Both Feet Software suggested: Within 2 Weeks Software suggested follow-up location: Clinic, consider virtual care Values and Measures Duration of CC: 1 Weeks Positive Responses PMH: CHF Negative Responses Denies: HPI: dyspnea on exertion, worse than usual during normal activities Denies: HPI: foot erythema, bilateral, worsening Denies: HPI: foot pain, with foot swelling, bilateral Denies: HPI: foot swelling, worsening Denies: HPI: weight gain, within past week [facility] Education Verbal Education Provided for: Leg Swelling [...] swelling IMPORTANT: This note was created by [facility] Clinical Contact Center staff. Please do not alert the staff member by adding them as a signer for future communications. Alerts are not monitored by this user. /alexi/ MONAE PEPE Registered Nurse Signed: 05/03/2024 12:19 MONAE PEPE [facility]
--- OUTSIDE RECORDS SUMMARY | 2024-07-16 07:13 | XMS_ITS | Encounter Summary ---
Author Name [facility] [place] Organization [facility] [place] Address [address] [place] [address] Care Team Providers Care Straightening Machine Feeder Name Role Phone JATINDER BENITEZ Primary Care [...] PART A Sep 29, 2016 PART A [id number] [phone] JUDY WEAVER PATIENT Selected Encounter This section [...] SURGERY [place] [facility] Jun 21, 2024 04:48 PM AMBULATORY - [facility]ICINE [facility] [place] [facility] Jun 21, 2024 05:45 PM AMBULATORY - NONE [place] [facility] Active, Pending, and Scheduled [...] SUSCEPTIBILITY ~Culture sample from JUAN drain output [facility] Apr 26, 2024 10:10 AM Laboratory - Microbiology Order GRAM STAIN WOUND OTHER WC ONCE ~For Test: GRAM STAIN ~JUAN drain culture/gram stain [facility] May 28, 2024 12:00 AM Laboratory - Blood Bank Order TYPE & SCREEN - LAB BLOOD SP [facility] Jun 08, 2024 09:57 AM Laboratory - Chemistry Order URINALYSIS URINE WC ONCE [facility] Jun 12, 2024 12:00 AM Laboratory - Chemistry Order BNP PLASMA SP ONCE [facility] Lab Results: +/- 30 days [...] Range Comment May 21, 2024 06:59 AM [facility] BASIC METABOLIC PANEL+MG Specimen Type: PLASMA No comment entered. Ordering Provider: GOLDIE BENITEZ Report Released Date/Time: May 15, 2024 08:34 AM Reporting Lab: [facility] [phone] Performing Lab: [facility] [address] CREATININE 0.9 mg/dL 0.7-1.2 UREA NITROGEN 18 mg/dL 8-26 GLUCOSE 126 mg/dL H 70-100 SODIUM 138 mmol/L 136-145 POTASSIUM 4.0 mmol/L 3.5-5.1 CHLORIDE 105 mmol/L 98-107 CO2 24 mmol/L 22-29 CALCIUM 9.8 mg/dL 8.4-10.2 MAGNESIUM 2.0 mg/dL 1.6-2.6 ANION GAP 9 mmol/L 5-15 .CREAT EGFR(CKD-EPI) >90 >60 May 04, 2024 08:36 AM [facility] BASIC METABOLIC PANEL+MG Specimen Type: PLASMA No comment entered. Ordering Provider: GOLDIE BENITEZ Report Released Date/Time: May 03, 2024 12:52 PM Reporting Lab: [facility] [address] Performing Lab: [facility] [address] CREATININE 0.7 mg/dL 0.7-1.2 UREA NITROGEN 13 mg/dL 8-26 GLUCOSE 91 mg/dL 70-100 SODIUM 141 mmol/L 136-145 POTASSIUM 3.6 mmol/L 3.5-5.1 CHLORIDE 109 mmol/L H 98-107 CO2 25 mmol/L 22-29 CALCIUM 8.9 mg/dL 8.4-10.2 MAGNESIUM 2.0 mg/dL 1.6-2.6 ANION GAP 7 mmol/L 5-15 .CREAT EGFR(CKD-EPI) >90 >60 Apr 26, 2024 07:16 AM [facility] BASIC METABOLIC PANEL+MG Specimen Type: PLASMA No comment entered. Ordering Provider: JONO RANDOLPH Report Released Date/Time: Apr 25, 2024 02:50 PM Reporting Lab: [facility] [address] Performing Lab: [facility] [address] CREATININE 0.7 mg/dL 0.7-1.2 UREA NITROGEN 15 mg/dL 8-26 GLUCOSE 106 mg/dL H 70-100 SODIUM 139 mmol/L 136-145 POTASSIUM 3.4 mmol/L L 3.5-5.1 CHLORIDE 105 mmol/L 98-107 CO2 25 mmol/L 22-29 CALCIUM 8.5 mg/dL 8.4-10.2 MAGNESIUM 2.2 mg/dL 1.6-2.6 ANION GAP 9 mmol/L 5-15 .CREAT EGFR(CKD-EPI) >90 >60 Apr 25, 2024 05:10 PM [facility] BASIC METABOLIC PANEL+MG Specimen Type: PLASMA No comment entered. Ordering Provider: GIOVANNI ADLER Report Released Date/Time: Apr 25, 2024 05:04 PM Reporting Lab: [facility] [address] Performing Lab: [facility] [address] CREATININE 0.7 mg/dL 0.7-1.2 UREA NITROGEN 15 mg/dL 8-26 GLUCOSE 104 mg/dL H 70-100 SODIUM 139 mmol/L 136-145 POTASSIUM 3.2 mmol/L L 3.5-5.1 CHLORIDE 103 mmol/L 98-107 CO2 28 mmol/L 22-29 CALCIUM 8.5 mg/dL 8.4-10.2 MAGNESIUM 2.2 mg/dL 1.6-2.6 ANION GAP 8 mmol/L 5-15 .CREAT EGFR(CKD-EPI) >90 >60 Apr 25, 2024 07:46 AM [facility] BASIC METABOLIC PANEL+MG Specimen Type: PLASMA No comment entered. Ordering Provider: GIOVANNI ADLER Report Released Date/Time: Apr 24, 2024 12:37 PM Reporting Lab: [facility] [address] Performing Lab: [facility] [address] CREATININE 0.7 mg/dL 0.7-1.2 UREA NITROGEN 14 mg/dL 8-26 GLUCOSE 127 mg/dL H 70-100 SODIUM 139 mmol/L 136-145 POTASSIUM 2.9 mmol/L L 3.5-5.1 CHLORIDE 101 mmol/L 98-107 CO2 29 mmol/L 22-29 CALCIUM 8.7 mg/dL 8.4-10.2 MAGNESIUM 2.3 mg/dL 1.6-2.6 ANION GAP 9 mmol/L 5-15 .CREAT EGFR(CKD-EPI) >90 >60 Apr 24, 2024 04:42 PM [facility] BASIC METABOLIC PANEL+MG Specimen Type: PLASMA No comment entered. Ordering Provider: GIOVANNI ADLER Report Released Date/Time: Apr 24, 2024 12:37 PM Reporting Lab: [facility] [address] Performing Lab: [facility] [address] CREATININE 0.7 mg/dL 0.7-1.2 UREA NITROGEN 16 mg/dL 8-26 GLUCOSE 97 mg/dL 70-100 SODIUM 138 mmol/L 136-145 POTASSIUM 2.7 mmol/L L 3.5-5.1 CHLORIDE 99 mmol/L 98-107 CO2 30 mmol/L H 22-29 CALCIUM 8.4 mg/dL 8.4-10.2 MAGNESIUM 2.1 mg/dL 1.6-2.6 ANION GAP 9 mmol/L 5-15 .CREAT EGFR(CKD-EPI) >90 >60 Apr 24, 2024 07:36 AM [facility] BASIC METABOLIC PANEL+MG Specimen Type: PLASMA Comment: Critical Value Reported To: Cait Zamorano RN 04-24-24@[address] [place] [address]. Critical value report confirmed. Ordering Provider: AARON VICTOR Report Released Date/Time: Apr 23, 2024 05:30 PM Reporting Lab: [facility] [address] Performing Lab: [facility] [address] CREATININE 0.7 mg/dL 0.7-1.2 UREA NITROGEN 16 mg/dL 8-26 GLUCOSE 105 mg/dL H 70-100 SODIUM 138 mmol/L 136-145 POTASSIUM 2.3 mmol/L LL 3.5-5.1 CHLORIDE 98 mmol/L 98-107 CO2 29 mmol/L 22-29 CALCIUM 8.3 mg/dL L 8.4-10.2 MAGNESIUM 2.2 mg/dL 1.6-2.6 ANION GAP 11 mmol/L 5-15 .CREAT EGFR(CKD-EPI) >90 >60 Apr 24, 2024 07:35 AM [facility] CBC & DIFF Specimen Type: BLOOD Comment: Automated Differential Performed Ordering Provider: AARON VICTOR Report Released Date/Time: Apr 23, 2024 05:30 PM Reporting Lab: [facility] [address] Performing Lab: [facility] [address] WBC 10.49 10*3/uL 4.0-11.0 RBC 3.83 10*6/uL [...] 10*3/uL 0-0.1 Apr 23, 2024 01:20 PM [facility] LACTIC ACID Specimen Type: PLASMA No comment entered. Ordering Provider: AARON VICTOR Report Released Date/Time: Apr 23, 2024 12:05 PM Reporting Lab: [facility] [address] Performing Lab: [facility] [address] LACTIC ACID 1.5 mmol/L 0.5-2.2 Apr 23, 2024 01:20 PM [facility] ACT PART THROMBO TIME Specimen Type: PLASMA No comment entered. Ordering Provider: AARON VICTOR Report Released Date/Time: Apr 23, 2024 12:05 PM Reporting Lab: [facility] [address] Performing Lab: [facility] [address] APTT 29.3 s 25.1-36.5 Apr 23, 2024 01:20 PM [facility] PROTHROMBIN TIME/INR Specimen Type: PLASMA No comment entered. Ordering Provider: AARON VICTOR Report Released Date/Time: Apr 23, 2024 12:05 PM Reporting Lab: [facility] [address] Performing Lab: [facility] [address] .INR 1.2 H 0.8-1.1 .PT 14.5 s H 9.4-12.5 Apr 23, 2024 01:20 PM [facility] COMPREHENSIVE METABOLIC PANEL+MG Specimen Type: PLASMA No comment entered. Ordering Provider: AARON VICTOR Report Released Date/Time: Apr 23, 2024 12:05 PM Reporting Lab: [facility] [address] Performing Lab: [facility] [address] CREATININE 0.7 mg/dL 0.7-1.2 UREA NITROGEN 19 [...] >90 >60 Apr 23, 2024 01:20 PM [facility] CBC & DIFF Specimen Type: BLOOD Comment: Automated Differential Performed Ordering Provider: AARON VICTOR Report Released Date/Time: Apr 23, 2024 12:05 PM Reporting Lab: [facility] [address] Performing Lab: [facility] [address] WBC 12.50 10*3/uL H 4.0-11.0 RBC 4.07 [...] 10*3/uL 0-0.1 Apr 21, 2024 07:28 AM [facility] URINALYSIS Specimen Type: URINE No comment entered. Ordering Provider: ANANDA HUGGINS Report Released Date/Time: Apr 21, 2024 07:37 AM Reporting Lab: [facility] [address] Performing Lab: [facility] [address] URINE COLOR COLORLESS SPECIFIC GRAVITY 1.009 1.003-1.03 [...] Mar 23, 2016 CLINICAL WARNING TOÑ[facility]OTIM [facility] Radiology Reports: +/- 30 [...] IR FISTULOGRAM OR SINOGRAM : FLACA WEAVER [id number] -1950 M Exm Date: MAY 25, 2024@09:00 Req Phys: AMINTA ESCALONA Pat Loc: [facility] XRAY INTERVENTIONAL RADIO Img Loc: INTERVENTIONAL RADIOLOGY Service: [place] [address] (Case [id number] COMPLETE) IR FISTULOGRAM OR SINOGRAM (ANI Detailed) CPT:56970 Contrast Media : unspecified contrast media Reason for Study: s/p drain placement for diverticular abscess- assess for drain Clinical History: IS NOT under investigation for COVID-19 or is COVID-19 negative 2 week follow up per Dr Escalona Contact number for responsible provider who can be reached for any questions or notifications of critical findings: [phone] Sonal LAST 3: Collection DT Specimen Test [...] 25, 2024 Date Verified: MAY 25, 2024 Light Technician E-Sig:/ES/DAVID BURNS MD Report: PROCEDURES 05/25/2024 9:48 [...] Primary Interpreting Staff: DAVID BURNS MD, RADIOLOGIST (Light Technician) /[facility] DAVID BURNS [facility] May 25, 2024 08:[address] (AP) ABDOMEN/PELVIS (P): MEGFLACA [id number] -1950 M Exm Date: MAY 25, 2024@08:23 Req Phys: DAVID BURNS Loc: [facility] XRAY INTERVENTIONAL RADIO Img Loc: CT IMAGING Service: [place] [address] (Case [id number] COMPLETE) CT (AP) ABDOMEN/PELVIS W/O CONTRA(CT Detailed) CPT:16364 Reason for Study: assess abscess and possible drain removal Clinical History: no contrast per stampmirna Per Joint Commission Standards, by signing this diagnostic imaging request the ordering provider confirms they have considered patients age and recent imaging history. Defer to radiologist for final CT protocol. Contact number for responsible provider who can be reached for any questions or notifications of critical findings: [phone] kanikamirna LAST 3: Collection DT Specimen Test [...] PLASMA .CREAT EGFR(CKD-E >90 Ref: >=60 Allergies: ([place] only) TERAZOSIN (Mar 13, 2015) Report Status: Verified Date Reported: MAY 25, 2024 Date Verified: MAY 25, 2024 Light Technician E-Sig:/ES/JESSENIA GOODMAN MD Report: EXAM: CT abdomen and pelvis without intravenous contrast. 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 TECHNIQUE: Helical acquisition of image data was performed for the abdomen and pelvis without intravenous contrast. Dose: 512.57 mGy*cm COMPARISON: CT abdomen pelvis with contrast 05/11/[address] abdomen pelvis 04/23/2024.; CT abdomen pelvis 05/05/2020 FINDINGS: AUTO WASHER: Pigtail catheter projecting over the left hemipelvis [...] Primary Interpreting Staff: JESSENIA GOODMAN MD, RADIOLOGIST (Light Technician) Primary Interpreting Resident: YOHANNES MELO DO, SLOT SERVICE SPECIALIST /JESSENIA LOUIE [facility] May 11, 2024 12:39 PM IR FISTULOGRAM / SINOGRAM (P): MEGFLACA YAMIL [id number] -1950 M Exm Date: MAY 11, 2024@12:39 Req Phys: PALMIRA POWELL Loc: [facility] C[facility]R FOLLOW-UP [facility] (Req' Img Loc: INTERVENTIONAL RADIOLOGY Service: [place] [address] (Case [id number] COMPLETE) IR INJECTION FOR SINOGRAM DIAGNOS(ANI Detailed) CPT:27330 Contrast Media : Non-ionic Iodinated Reason for Study: s/p drain placement for diverticular abscess- assess for drain (Case [id number] COMPLETE) IR FISTULOGRAM OR SINOGRAM (ANI Detailed) CPT:08615 Contrast Media : unspecified contrast media (Case [id number] COMPLETE) IR DRAINAGE CATHETER SUPPLY (ANI Detailed) CPT:C1729 Clinical History: IS NOT under investigation for COVID-19 or is COVID-19 negative s/p drain placement for diverticular abscess- assess for drain removal Contact number for responsible provider who can be reached for any questions or notifications of critical findings: [phone] Palmira Powell MD LAST CREATININE 0.7 (05/04/24) Report Status: Verified Date Reported: MAY 11, 2024 Date Verified: MAY 11, 2024 Light Technician E-Sig:/ES/AMINTA ESCALONA MD Report: PROCEDURES Abdominal drain [...] Interpreting Staff: AMINTA ESCALONA MD, INTERVENTIONAL RADIOLOGIST (Light Technician) /AMINTA VELAZCO [facility] May 11, 2024 11:[address] (AP) ABDOMEN/PELVIS (P): FLACA WEAVER [id number] -1950 M Exm Date: MAY 11, 2024@11:40 Req Phys: PALMIRA POWELL Loc: [facility] C/R FOLLOW-UP CLINIC (Req' Img Loc: CT IMAGING Service: [place] [address] (Case [id number] COMPLETE) CT (AP) ABDOMEN/PELVIS W CONTRAST(CT Detailed) CPT:05799 Contrast Media : Non-ionic Iodinated Reason for [...] any questions or notifications of critical findings: [phone] Palmira Pwoell MD LAST 3: Collection DT Specimen Test [...] PLASMA .CREAT EGFR(CKD-E >90 Ref: >=60 Allergies: ([place] only) TERAZOSIN (Mar 13, 2015) Report Status: Verified Date Reported: MAY 11, 2024 Date Verified: MAY 11, 2024 Light Technician E-Sig:/ES/LISA PENDLETON MD Report: CT abdomen and [...] Primary Interpreting Staff: LISA PENDLETON MD, RADIOLOGIST (Light Technician) /LISA CARDONA [facility] Apr 24, 2024 02:13 PM ABSCESS DRAIN PLACEMENT PERITONEAL (P): FLACA WEAVER [id number] -1950 M Exm Date: APR 24, 2024@14:13 Req Phys: TAURUS WOOD Loc: 3KS/04-24-2024@16:07 Img Loc: INTERVENTIONAL RADIOLOGY Service: PRIMARY CARE - [place] [address] (Case [id number] COMPLETE) IR PERITONEAL/RETROPERITONEAL PER(ANI Detailed) CPT:79814 Reason for Study: diverticular abscess Clinical History: [place] IS NOT under investigation for COVID-19 or is COVID-19 negative 73yo M with hx of recurrent diverticulitis, transferred from [facility] 04/[address] 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 Palmira Powell MD LAST CREATININE 0.7 (04/23/24) Report Status: Verified Date Reported: APR 24, 2024 Date Verified: APR 24, 2024 Light Technician E-Sig:/ES/SADIA DEE MD Report: PROCEDURES: Placement of [...] Primary Interpreting Staff: SADIA DEE MD, RADIOLOGIST (Light Technician) Primary Interpreting Resident: JEFFREY FLOWER MD, SLOT SERVICE SPECIALIST /PJB SADIA DEE [facility] Apr 24, 2024 02:[address] NEEDLE PLACEMENT (P): MEGFLACA AYMIL [id number] -1950 M Exm Date: APR 24, 2024@14:11 Req Phys: TAURUS WOOD Loc: 3K04-24-2024@16:07 Img Loc: CT IMAGING Service: PRIMARY CARE - [place] [address] (Case [id number] COMPLETE) CT SCAN FOR NEEDLE PLACEMENT (CT Detailed) CPT:37914 Reason for Study: diverticular abscess Clinical History: Report Status: Verified Date Reported: APR 24, 2024 Date Verified: APR 24, 2024 Light Technician E-Sig:/ES/SADIA DEE MD Report: PROCEDURES: Placement of [...] Primary Interpreting Staff: SADIA DEE MD, RADIOLOGIST (Light Technician) Primary Interpreting Resident: JEFFREY FLOWER MD, SLOT SERVICE SPECIALIST /SADIA LEWIS [facility] Apr 23, 2024 06:[address] [facility] [address] ABDOMEN/PELVIS: FLACA WEAVER [id number] -1950 Ex Date: APR 23, 2024@06:36 Req Phys: MKCAY VICTOR Loc: 04-24-2024@10:25 Im Loc: OUTSOURCE CT Service: Unknown (Case [id number] COMPLETE) NON [place] CT ABDOMEN/PELVIS (CT Detailed) CPT:21407 Reason for Study: OUTSIDE STUDY Clinical History: [...] Diagnostic Code: VERIFIED BY: / *ELECTRONICALLY FILED* [facility] Pathology Reports: +/- 30 days [...] AM LR MICROBIOLOGY RE PORT: Reporting Lab: [facility] [CLIA# [id number]] [place] [address] Accession [UID]: [id number] [[id number]] Received: Apr 21, 2024@08:16 Collection sample: URINE Collection date: Apr 21, 2024 07:28 Provider: ANANDA HUGGINS Comment on specimen: RECEIVED IN STERILE CUP Test(s) ordered: CULTURE & SUSCEPTIBILITY...... completed: Apr 22, 2024 * BACTERIOLOGY FINAL REPORT => Apr 22, 2024 08:38 TECH CODE: [id number] CULTURE RESULTS: NO GROWTH 24 HOURS Bacteriology Remark(s): THIS REPORT IS FINAL =--=--=--=--=--=--=--=--=--=--=--=- -=--=--=--=--=--=--=--=--=--=--=--= --=--=-- Performing Laboratory: Bacteriology Report Performed By: [facility] [CLIA# [id number]] [place] [address] [facility] Encounter Notes: All associated encounter notes This section contains the clinical notes associated to the Encounter. Date/Time Encounter Note(s) Provider Source May 03, 2024 12:06 PM ADMINISTRATIVE NOT E: LOCAL TITLE: CCC: SCHEDULING ADMINISTRATION STANDARD TITLE: ADMINISTRATIVE NOTE DATE OF NOTE: MAY 03, 2024@12:06 ENTRY DATE: MAY 03, 2024@12:06:43 AUTHOR: SHEA SOLORIO EXP COSIGNER: URGENCY: STATUS: COMPLETED Primary Care Call Center Per note below service writer advisor scheduled a blood draw appt and the INDUSTRIAL RELATIONS MANAGER appt. Patient wanted to get the labs done tomorrow and first opening for INDUSTRIAL RELATIONS MANAGER was Tuesday. [employer] didn't see a lab # placed yet. Please place and tag back service writer advisor so service writer advisor can add it into the appt comment for tomorrow. Thanks /alexi/ Shea Lawrence [address] [facility] AMSA Signed: 05/03/2024 12:11 Receipt Acknowledged By: 05/03/2024 12:44 /alexi/ GUERITA AGUILA RN REGISTERED NURSE SHEA SOLORIO [facility]
--- OUTSIDE RECORDS SUMMARY | 2024-07-16 07:13 | XMS_ITS | Encounter Summary ---
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 Date/Time Encounter Type Encounter Description Reason Pro vider Source Jul 13, 2024 07:46 AM Outpatient Encounter TELEPHONE TRIAGE IHE Encounter Template Text not used by [place] Plan of Treatment: Future Appointments (+ 6 months) and Future Tests (+/- 45 days) The Plan of Treatment section includes future care activities for the [facility] from [facility]. This section includes future appointments and future orders which are active, pending or scheduled. Active, Pending, and Scheduled Orders This section includes a listing of several types of active, pending, and scheduled orders, including clinic medications orders, diagnostic test orders, procedure orders and consult orders; where the start date of the order is 45 days before the date of the Encounter or 45 days after the date of theEncounter. The data comes from all [facility] facilities. Test Date/Time Test Type Test Details Facility Name Jun 08, 2024 09:57 AM Laboratory - Chemi stry Order URINALYSIS URINE WC ONCE [facility] Jun 12, 2024 12:00 AM Laboratory - Chemi stry Order BNP PLASMA SP ONCE [facility] Jun 21, 2024 05:45 PM Laboratory - Blood Bank Order TYPE & SCREEN - LAB BLOOD WC [facility] Jul 03, 2024 12:00 AM Laboratory - Blood Bank Order TYPE & SCREEN - LAB BLOOD WC [facility] Jul 16, 2024 12:00 AM Laboratory - Chemi stry Order CBC BLOOD SP ONCE [facility] Jul 17, 2024 12:00 AM Laboratory - Chemi stry Order BASIC METABOLIC PANEL+MG PLASMA SP ONCE [facility] Lab Results: +/- 30 days of the [...] Result - Unit Interpretation Reference Range Comment Jul 10, 2024 07:16 AM [facility] PHOSPHORUS Specimen Type: PLASMA No comment entered. Ordering Provider: JUANCARLOS ECHOLS S Report Released Date/Time: Jul 09, 2024 12:23 PM Reporting Lab: [facility] [phone] Performing Lab: [facility] [address] PHOSPHORUS 3.0 mg/dL 2.3-4.3 Jul 10, 2024 07:16 AM [facility] BASIC METABOLIC PANEL+MG Specimen Type: PLASMA No comment entered. Ordering Provider: JUANCARLOS ECHOLS S Report Released Date/Time: Jul 09, 2024 12:23 PM Reporting Lab: [facility] [address] Performing Lab: [facility] [address] CREATININE 0.7 mg/dL 0.7-1.2 UREA NITROGEN 27 mg/dL H 8-26 GLUCOSE 104 mg/dL H 70-100 SODIUM 133 mmol/L L 136-145 POTASSIUM 4.3 mmol/L 3.5-5.1 CHLORIDE 102 mmol/L 98-107 CO2 19 mmol/L L 22-29 CALCIUM 10.1 mg/dL 8.4-10.2 MAGNESIUM 1.9 mg/dL 1.6-2.6 ANION GAP 12 mmol/L 5-15 .CREAT EGFR(CKD-EPI) >90 >60 Jul 10, 2024 07:15 AM [facility] CBC Specimen Type: BLOOD No comment entered. Ordering Provider: JUANCARLOS ECHOLS Report Released Date/Time: Jul 09, 2024 12:23 PM Reporting Lab: [facility] [address] Performing Lab: [facility] [address] WBC 18.8 H 4.0-11.0 RBC 5.08 4.60-6.20 HGB 15.9 g/dL 13.5-17.9 HCT 46.8 41.0-54.0 MCV 92.1 fL 80.0-100.0 MCH 31.3 pg 27.0-33.0 MCHC 34.0 g/dL 32.0-37.5 PLT 479 H 150-400 MPV 10.2 fL 9.1-13.0 RDW 13.7 11.5-14.5 Jul 09, 2024 07:08 AM [facility] CBC Specimen Type: BLOOD No comment entered. Ordering Provider: QUYNH WEISS Report Released Date/Time: Jul 08, 2024 06:18 PM Reporting Lab: [facility] [address] Performing Lab: [facility] [address] WBC 15.3 H 4.0-11.0 RBC 4.91 4.60-6.20 HGB 15.1 g/dL 13.5-17.9 HCT 45.7 41.0-54.0 MCV 93.1 fL 80.0-100.0 MCH 30.8 pg 27.0-33.0 MCHC 33.0 g/dL 32.0-37.5 PLT 443 H 150-400 MPV 10.0 fL 9.1-13.0 RDW 13.5 11.5-14.5 Jul 08, 2024 10:50 AM [facility] URINALYSIS Specimen Type: URINE No comment entered. Ordering Provider: KATELYNN PERSON Report Released Date/Time: Jul 08, 2024 08:41 AM Reporting Lab: [facility] [address] Performing Lab: [facility] [address] URINE COLOR YELLOW SPECIFIC GRAVITY >1.050 H 1.003-1.03 5 URINE BILIRUBIN NEGATIVE NEGATIVE URINE KETONES NEGATIVE NEGATIVE URINE GLUCOSE 500 mg/dL <30 URINE PROTEIN 20 mg/dL <20 URINE PH 6.0 5.0-8.0 URINE WBC/HPF 1 /[HPF] 0-7 URINE BACTERIA NONE SEEN URINE RBC/HPF NONE SEEN /[HPF] 0-3 APPEARANCE CLEAR SQUAMOUS EPITHELIAL <1 /[HPF] URINE BLOOD NEGATIVE NEGATIVE URINE NITRITE NEGATIVE NEGATIVE LEUKOCYTE ESTERASE NEGATIVE NEGATIVE Jul 08, 2024 09:54 AM [facility] CBC Specimen Type: BLOOD Comment: Specimen received in Lab at: 0952 Ordering Provider: JUANCARLOS ECHOLS Report Released Date/Time: Jul 07, 2024 04:49 PM Reporting Lab: [facility] [address] Performing Lab: [facility] [address] WBC 17.5 H 4.0-11.0 RBC 4.88 4.60-6.20 HGB 14.9 g/dL 13.5-17.9 HCT 45.7 41.0-54.0 MCV 93.6 fL 80.0-100.0 MCH 30.5 pg 27.0-33.0 MCHC 32.6 g/dL 32.0-37.5 PLT 472 H 150-400 MPV 10.2 fL 9.1-13.0 RDW 13.7 11.5-14.5 Jul 08, 2024 09:54 AM [facility] PHOSPHORUS Specimen Type: PLASMA Comment: Specimen received in Lab at: 0952 Ordering Provider: JUANCARLOS ECHOLS Report Released Date/Time: Jul 07, 2024 04:49 PM Reporting Lab: [facility] [address] Performing Lab: [facility] [address] PHOSPHORUS 2.6 mg/dL 2.3-4.3 Jul 08, 2024 09:54 AM [facility] BASIC METABOLIC PANEL+MG Specimen Type: PLASMA Comment: Specimen received in Lab at: 0952 Ordering Provider: JUANCARLOS ECHOLS Report Released Date/Time: Jul 07, 2024 04:49 PM Reporting Lab: [facility] [address] Performing Lab: [facility] [address] CREATININE 0.9 mg/dL 0.7-1.2 UREA NITROGEN 26 mg/dL 8-26 GLUCOSE 128 mg/dL H 70-100 SODIUM 134 mmol/L L 136-145 POTASSIUM 3.4 mmol/L L 3.5-5.1 CHLORIDE 100 mmol/L 98-107 CO2 24 mmol/L 22-29 CALCIUM 9.8 mg/dL 8.4-10.2 MAGNESIUM 1.8 mg/dL 1.6-2.6 ANION GAP 10 mmol/L 5-15 .CREAT EGFR(CKD-EPI) >90 >60 Jul 07, 2024 02:00 PM [facility] C DIFF PANEL Specimen Type: FECES No comment entered. Ordering Provider: JEVON ZAZUETA Report Released Date/Time: Jul 07, 2024 12:26 PM Reporting Lab: [facility] [address] Performing Lab: [facility] [address] C DIFF TOX B GENE PCR NEGATIVE Negative Jul 07, 2024 07:41 AM [facility] PHOSPHORUS Specimen Type: PLASMA No comment entered. Ordering Provider: JEVON ZAZUETA Report Released Date/Time: Jul 06, 2024 03:44 PM Reporting Lab: [facility] [address] Performing Lab: [facility] [address] PHOSPHORUS 3.1 mg/dL 2.3-4.3 Jul 07, 2024 07:41 AM [facility] BASIC METABOLIC PANEL+MG Specimen Type: PLASMA No comment entered. Ordering Provider: JEVON ZAZUETA Report Released Date/Time: Jul 06, 2024 03:44 PM Reporting Lab: [facility] [address] Performing Lab: [facility] [address] CREATININE 0.9 mg/dL 0.7-1.2 UREA NITROGEN 20 mg/dL 8-26 GLUCOSE 157 mg/dL H 70-100 SODIUM 136 mmol/L 136-145 POTASSIUM 3.7 mmol/L 3.5-5.1 CHLORIDE 102 mmol/L 98-107 CO2 21 mmol/L L 22-29 CALCIUM 9.8 mg/dL 8.4-10.2 MAGNESIUM 1.9 mg/dL 1.6-2.6 ANION GAP 13 mmol/L 5-15 .CREAT EGFR(CKD-EPI) >90 >60 Jul 07, 2024 07:40 AM [facility] CBC Specimen Type: BLOOD No comment entered. Ordering Provider: JEVON ZAZUETA Report Released Date/Time: Jul 06, 2024 03:44 PM Reporting Lab: [facility] [address] Performing Lab: [facility] [address] WBC 21.2 H 4.0-11.0 RBC 5.09 4.60-6.20 HGB 15.9 g/dL 13.5-17.9 HCT 48.3 41.0-54.0 MCV 94.9 fL 80.0-100.0 MCH 31.2 pg 27.0-33.0 MCHC 32.9 g/dL 32.0-37.5 PLT 500 H 150-400 MPV 10.3 fL 9.1-13.0 RDW 13.6 11.5-14.5 Jul 06, 2024 07:21 AM [facility] CBC Specimen Type: BLOOD No comment entered. Ordering Provider: JEVON ZAZUETA Report Released Date/Time: Jul 05, 2024 01:22 PM Reporting Lab: [facility] [address] Performing Lab: [facility] [address] WBC 18.0 H 4.0-11.0 RBC 4.83 4.60-6.20 HGB 14.6 g/dL 13.5-17.9 HCT 45.5 41.0-54.0 MCV 94.2 fL 80.0-100.0 MCH 30.2 pg 27.0-33.0 MCHC 32.1 g/dL 32.0-37.5 PLT 368 150-400 MPV 10.4 fL 9.1-13.0 RDW 13.6 11.5-14.5 Jul 06, 2024 07:21 AM [facility] PHOSPHORUS Specimen Type: PLASMA No comment entered. Ordering Provider: JEVON ZAZUETA Report Released Date/Time: Jul 05, 2024 01:22 PM Reporting Lab: [facility] [address] Performing Lab: [facility] [address] PHOSPHORUS 3.6 mg/dL 2.3-4.3 Jul 06, 2024 07:21 AM [facility] BASIC METABOLIC PANEL+MG Specimen Type: PLASMA No comment entered. Ordering Provider: JEVON ZAZUETA Report Released Date/Time: Jul 05, 2024 01:22 PM Reporting Lab: [facility] [address] Performing Lab: [facility] [address] CREATININE 0.7 mg/dL 0.7-1.2 UREA NITROGEN 12 mg/dL 8-26 GLUCOSE 108 mg/dL H 70-100 SODIUM 138 mmol/L 136-145 POTASSIUM 3.4 mmol/L L 3.5-5.1 CHLORIDE 104 mmol/L 98-107 CO2 20 mmol/L L 22-29 CALCIUM 9.3 mg/dL 8.4-10.2 MAGNESIUM 1.9 mg/dL 1.6-2.6 ANION GAP 14 mmol/L 5-15 .CREAT EGFR(CKD-EPI) >90 >60 Jul 05, 2024 07:17 AM [facility] MAGNESIUM Specimen Type: PLASMA No comment entered. Ordering Provider: JUANCARLOS ECHOLS Report Released Date/Time: Jul 04, 2024 09:39 AM Reporting Lab: [facility] [address] Performing Lab: [facility] [address] MAGNESIUM 2.0 mg/dL 1.6-2.6 Jul 05, 2024 07:17 AM [facility] PHOSPHORUS Specimen Type: PLASMA No comment entered. Ordering Provider: JUANCARLOS ECHOLS S Report Released Date/Time: Jul 04, 2024 09:39 AM Reporting Lab: [facility] [address] Performing Lab: [facility] [address] PHOSPHORUS 2.0 mg/dL L 2.3-4.3 Jul 05, 2024 07:17 AM [facility] BASIC METABOLIC PANEL+MG Specimen Type: PLASMA No comment entered. Ordering Provider: JUANCARLOS ECHOLS S Report Released Date/Time: Jul 04, 2024 09:39 AM Reporting Lab: [facility] [address] Performing Lab: [facility] [address] CREATININE 0.7 mg/dL 0.7-1.2 UREA NITROGEN 12 mg/dL 8-26 GLUCOSE 84 mg/dL 70-100 SODIUM 135 mmol/L L 136-145 POTASSIUM 3.8 mmol/L 3.5-5.1 CHLORIDE 104 mmol/L 98-107 CO2 24 mmol/L 22-29 CALCIUM 9.3 mg/dL 8.4-10.2 MAGNESIUM 2.0 mg/dL 1.6-2.6 ANION GAP 7 mmol/L 5-15 .CREAT EGFR(CKD-EPI) >90 >60 Jul 05, 2024 07:16 AM [facility] CBC Specimen Type: BLOOD No comment entered. Ordering Provider: JUANCARLOS ECHOLS S Report Released Date/Time: Jul 04, 2024 09:39 AM Reporting Lab: [facility] [address] Performing Lab: [facility] [address] WBC 18.3 H 4.0-11.0 RBC 4.49 L 4.60-6.20 HGB 14.1 g/dL 13.5-17.9 HCT 43.4 41.0-54.0 MCV 96.7 fL 80.0-100.0 MCH 31.4 pg 27.0-33.0 MCHC 32.5 g/dL 32.0-37.5 PLT 317 150-400 MPV 10.0 fL 9.1-13.0 RDW 13.9 11.5-14.5 Jul 04, 2024 07:17 AM [facility] BASIC METABOLIC PANEL+MG Specimen Type: PLASMA No comment entered. Ordering Provider: GABINO CAMERON Report Released Date/Time: Jul 03, 2024 06:31 PM Reporting Lab: [facility] [address] Performing Lab: [facility] [address] CREATININE 0.7 mg/dL 0.7-1.2 UREA NITROGEN 16 mg/dL 8-26 GLUCOSE 129 mg/dL H 70-100 SODIUM 137 mmol/L 136-145 POTASSIUM 3.7 mmol/L 3.5-5.1 CHLORIDE 107 mmol/L 98-107 CO2 22 mmol/L 22-29 CALCIUM 9.0 mg/dL 8.4-10.2 MAGNESIUM 1.9 mg/dL 1.6-2.6 ANION GAP 8 mmol/L 5-15 .CREAT EGFR(CKD-EPI) >90 >60 Jul 04, 2024 07:17 AM [facility] PHOSPHORUS Specimen Type: PLASMA No comment entered. Ordering Provider: GABINO CAMERON Report Released Date/Time: Jul 03, 2024 06:31 PM Reporting Lab: [facility] [address] Performing Lab: [facility] [address] PHOSPHORUS 2.8 mg/dL 2.3-4.3 Jul 04, 2024 07:16 AM [facility] CBC Specimen Type: BLOOD No comment entered. Ordering Provider: GABINO CAMERON Report Released Date/Time: Jul 03, 2024 06:31 PM Reporting Lab: [facility] [address] Performing Lab: [facility] [address] WBC 20.6 H 4.0-11.0 RBC 4.63 4.60-6.20 HGB 14.2 g/dL 13.5-17.9 HCT 43.4 41.0-54.0 MCV 93.7 fL 80.0-100.0 MCH 30.7 pg 27.0-33.0 MCHC 32.7 g/dL 32.0-37.5 PLT 329 150-400 MPV 10.4 fL 9.1-13.0 RDW 13.8 11.5-14.5 Jul 04, 2024 07:16 AM [facility] CBC & DIFF Specimen Type: BLOOD Comment: Manual Differential Performed Ordering Provider: GABINO CAMERON Report Released Date/Time: Jul 03, 2024 06:31 PM Reporting Lab: [facility] [address] Performing Lab: [facility] [address] WBC 20.6 H 4.0-11.0 RBC 4.63 4.60-6.20 HGB 14.2 g/dL 13.5-17.9 HCT 43.4 41.0-54.0 MCV 93.7 fL 80.0-100.0 MCH 30.7 pg 27.0-33.0 MCHC 32.7 g/dL 32.0-37.5 PLT 329 150-400 MPV 10.4 fL 9.1-13.0 NEUT 90.5 LYMPHS 7.0 MONO 2.5 EOSINO 0.0 BASO 0.0 NORMOCYTIC YES NORMOCHROMIC YES POIKILOCYTOSIS SLIGHT RDW 13.8 11.5-14.5 ANASTASIYA CELLS SLIGHT ABS LYMPH 1.4 1.0-4.0 ABS MONO 0.5 0.1-1.0 ABS NEUT 18.6 H 2.0-7.7 ABS EOS 0.0 0.0-0.5 ABS BASO 0.0 0.0-0.2 .RBC MORPHOLOGY PRESENT Jul 04, 2024 07:15 AM [facility] BNP Specimen Type: PLASMA No comment entered. Ordering Provider: GABINO CAMERON Report Released Date/Time: Jul 03, 2024 06:31 PM Reporting Lab: [facility] [address] Performing Lab: [facility] [address] BNP 292 pg/mL H <99 Jul 03, 2024 10:32 PM [facility] FINGERSTICK GLUCOSE Specimen Type: BLOOD Comment: Save Result Nurse Notified Ordering Provider: KATELYNN PERSON Report Released Date/Time: Jul 03, 2024 10:50 PM Reporting Lab: [facility] [address] Performing Lab: [facility] [address] FINGERSTICK GLUCOSE 126 mg/dL H 70-100 Jul 03, 2024 05:33 PM [facility] FINGERSTICK GLUCOSE Specimen Type: BLOOD Comment: Save Result Nurse Notified Ordering Provider: KATELYNN PERSON Report Released Date/Time: Jul 03, 2024 05:46 PM Reporting Lab: [facility] [address] Performing Lab: [facility] [address] FINGERSTICK GLUCOSE 141 mg/dL H 70-100 Jul 03, 2024 02:31 PM [facility] POC ABG/ELECTROLYTES Specimen Type: ARTERIAL BLOOD Comment: FIO2 = 97% Patient Temp: 36.0 C Sample Type = ARTERIAL Ordering Provider: MAZIN ARREDONDO Report Released Date/Time: Jul 03, 2024 01:48 PM Reporting Lab: [facility] [address] Performing Lab: [facility] [address] POC PH 7.387 7.35-7.45 POC PCO2 34.4 mm[Hg] L 35.00-45 .0 0 POC PO2 401 mm[Hg] H 80.0-105.0 POC TCO2 22 mmol/L L 23.0-27.0 POC HCO3 20.7 mmol/L L 22.0-26.0 POC BE ECT -4 mmol/L L POC SO2 100 H 95-98 POC SODIUM 138 mmol/L 138.0-14 6. 0 POC POTASSIUM 3.5 mmol/L 3.50-4.90 POC HGB 16.3 g/dL 12.00-17.0 0 POC HCT 48 38.0-51.0 POC IONIZED CALCIUM 4.4 mg/dL L 4.50-5.30 POC PH AT PAT TEMP 7.402 7.35-7.45 POC PCO2 AT PAT TEMP 32.9 mm[Hg] L 35.00-45.0 0 POC PO2 AT PAT TEMP 395 mm[Hg] H 80.0-105.0 Jul 03, 2024 01:05 PM [facility] POC ABG/ELECTROLYTES Specimen Type: ARTERIAL BLOOD Comment: FIO2 = 53% Patient Temp: 36.2 C Sample Type = ARTERIAL Ordering Provider: MAZIN ARREDONDO Report Released Date/Time: Jul 03, 2024 01:48 PM Reporting Lab: [facility] [address] Performing Lab: [facility] [address] POC PH 7.280 L 7.35-7.45 POC PCO2 40.3 mm[Hg] 35.00-45 .0 0 POC PO2 104 mm[Hg] 80.0-105.0 POC TCO2 20 mmol/L L 23.0-27.0 POC HCO3 19.0 mmol/L L 22.0-26.0 POC BE ECT -8 mmol/L L POC SO2 97 95-98 POC SODIUM 136 mmol/L L 138.0-14 6. 0 POC POTASSIUM 3.5 mmol/L 3.50-4.90 POC HGB 17.0 g/dL 12.00-17.0 0 POC HCT 50 38.0-51.0 POC IONIZED CALCIUM 4.6 mg/dL 4.50-5.30 POC PH AT PAT TEMP 7.292 L 7.35-7.45 POC PCO2 AT PAT TEMP 39.0 mm[Hg] 35.00-45.0 0 POC PO2 AT PAT TEMP 100 mm[Hg] 80.0-105.0 Jul 03, 2024 06:15 AM [facility] URINALYSIS Specimen Type: URINE No comment entered. Ordering Provider: MARYBETH POWELL Report Released Date/Time: Jun 12, 2024 04:01 PM Reporting Lab: [facility] [address] Performing Lab: [facility] [address] URINE COLOR YELLOW SPECIFIC GRAVITY 1.031 1.003-1.03 5 URINE BILIRUBIN NEGATIVE NEGATIVE URINE KETONES 1+ NEGATIVE URINE GLUCOSE 1000 mg/dL <30 URINE PROTEIN 30 mg/dL <20 URINE PH 6.0 5.0-8.0 URINE WBC/HPF 23 /[HPF] H 0-7 URINE BACTERIA NONE SEEN URINE RBC/HPF 3 /[HPF] 0-3 APPEARANCE CLEAR SQUAMOUS EPITHELIAL 5 /[HPF] URINE BLOOD NEGATIVE NEGATIVE URINE NITRITE NEGATIVE NEGATIVE WBC CLUMPS PRESENT LEUKOCYTE ESTERASE 250 NEGATIVE Jul 03, 2024 06:13 AM [facility] CBC Specimen Type: BLOOD No comment entered. Ordering Provider: MARYBETH POWELL Report Released Date/Time: Jun 12, 2024 03:59 PM Reporting Lab: [facility] [address] Performing Lab: [facility] [address] WBC 15.8 H 4.0-11.0 RBC 5.11 4.60-6.20 HGB 16.1 g/dL 13.5-17.9 HCT 49.1 41.0-54.0 MCV 96.1 fL 80.0-100.0 MCH 31.5 pg 27.0-33.0 MCHC 32.8 g/dL 32.0-37.5 PLT 357 150-400 MPV 9.8 fL 9.1-13.0 RDW 13.7 11.5-14.5 Jun 24, 2024 09:50 AM [facility] BASIC METABOLIC PANEL+MG Specimen Type: PLASMA Comment: Specimen received in Lab at: 0948 Ordering Provider: JEVON ZAZUETA Report Released Date/Time: Jun 23, 2024 06:07 PM Reporting Lab: [facility] [address] Performing Lab: [facility] [address] CREATININE 0.8 mg/dL 0.7-1.2 UREA NITROGEN 13 mg/dL 8-26 GLUCOSE 135 mg/dL H 70-100 SODIUM 135 mmol/L L 136-145 POTASSIUM 3.6 mmol/L 3.5-5.1 CHLORIDE 103 mmol/L 98-107 CO2 24 mmol/L 22-29 CALCIUM 9.2 mg/dL 8.4-10.2 MAGNESIUM 1.9 mg/dL 1.6-2.6 ANION GAP 8 mmol/L 5-15 .CREAT EGFR(CKD-EPI) >90 >60 Jun 24, 2024 09:50 AM [facility] CBC Specimen Type: BLOOD Comment: Specimen received in Lab at: 0948 Ordering Provider: JEVON ZAZUETA Report Released Date/Time: Jun 23, 2024 06:07 PM Reporting Lab: [facility] [address] Performing Lab: [facility] [address] WBC 15.5 H 4.0-11.0 RBC 4.93 4.60-6.20 HGB 15.2 g/dL 13.5-17.9 HCT 46.5 41.0-54.0 MCV 94.3 fL 80.0-100.0 MCH 30.8 pg 27.0-33.0 MCHC 32.7 g/dL 32.0-37.5 PLT 223 150-400 MPV 11.4 fL 9.1-13.0 RDW 13.9 11.5-14.5 Jun 23, 2024 07:52 AM [facility] COMPREHENSIVE METABOLIC PANEL+MG Specimen Type: PLASMA No comment entered. Ordering Provider: JEVON ZAZUETA Report Released Date/Time: Jun 22, 2024 05:51 PM Reporting Lab: [facility] [address] Performing Lab: [facility] [address] CREATININE 0.7 mg/dL 0.7-1.2 UREA NITROGEN 16 mg/dL 8-26 GLUCOSE 110 mg/dL H 70-100 SODIUM 135 mmol/L L 136-145 POTASSIUM 3.4 mmol/L L 3.5-5.1 CHLORIDE 100 mmol/L 98-107 CO2 26 mmol/L 22-29 CALCIUM 9.1 mg/dL 8.4-10.2 PROTEIN,TOTAL 6.8 g/dL 6.4-8.3 ALBUMIN 3.7 g/dL 3.5-5.2 BILIRUBIN, TOTAL 0.8 mg/dL 0.2-1.2 MAGNESIUM 2.0 mg/dL 1.6-2.6 ANION GAP 9 mmol/L 5-15 ALKALINE PHOSPHATASE 77 U/L 40-150 ALT/SGPT 12 U/L <44 AST/SGOT 23 U/L 11-34 .CREAT EGFR(CKD-EPI) >90 >60 Jun 23, 2024 07:52 AM [facility] CBC & DIFF Specimen Type: BLOOD Comment: Automated Differential Performed Ordering Provider: JEVON ZAZUETA Report Released Date/Time: Jun 22, 2024 05:51 PM Reporting Lab: [facility] [id number] Performing Lab: [facility] [id number] WBC 14.9 H 4.0-11.0 RBC 5.09 4.60-6.20 HGB 15.7 g/dL 13.5-17.9 HCT 47.6 41.0-54.0 MCV 93.5 fL 80.0-100.0 MCH 30.8 pg 27.0-33.0 MCHC 33.0 g/dL 32.0-37.5 PLT 197 150-400 MPV 11.8 fL 9.1-13.0 NEUT 88.6 H 40.0-80.0 LYMPHS 4.5 L 15.0-45.0 MONO 6.2 2.0-12.0 EOSINO 0.0 0.0-6.0 BASO 0.2 0.0-2.0 RDW 13.7 11.5-14.5 ABS LYMPH 0.7 L 1.0-4.0 ABS MONO 0.9 0.1-1.0 ABS NEUT 13.2 H 2.0-7.7 ABS EOS 0.0 0.0-0.5 ABS BASO 0.0 0.0-0.2 IG(META,MYELO,P RO) 0.5 ABS IMMATURE GRAN 0.1 0.0-0.1 Jun 22, 2024 06:10 PM [facility] CBC Specimen Type: BLOOD No comment entered. Ordering Provider: JEVON ZAZUETA Report Released Date/Time: Jun 22, 2024 05:51 PM Reporting Lab: [facility] [phone] Performing Lab: [facility] [id number] WBC 16.9 H 4.0-11.0 RBC 5.28 4.60-6.20 HGB 16.9 g/dL 13.5-17.9 HCT 50.4 41.0-54.0 MCV 95.5 fL 80.0-100.0 MCH 32.0 pg 27.0-33.0 MCHC 33.5 g/dL 32.0-37.5 PLT 223 150-400 MPV 10.9 fL 9.1-13.0 RDW 14.0 11.5-14.5 Jun 22, 2024 06:10 PM [facility] COMPREHENSIVE METABOLIC PANEL+MG Specimen Type: PLASMA No comment entered. Ordering Provider: JEVON ZAZUETA Report Released Date/Time: Jun 22, 2024 05:51 PM Reporting Lab: [facility] [id number] Performing Lab: [facility] [phone] CREATININE 0.7 mg/dL 0.7-1.2 UREA NITROGEN 17 mg/dL 8-26 GLUCOSE 96 mg/dL 70-100 SODIUM 137 mmol/L 136-145 POTASSIUM 3.4 mmol/L L 3.5-5.1 CHLORIDE 99 mmol/L 98-107 CO2 26 mmol/L 22-29 CALCIUM 9.2 mg/dL 8.4-10.2 PROTEIN,TOTAL 7.1 g/dL 6.4-8.3 ALBUMIN 4.1 g/dL 3.5-5.2 BILIRUBIN, TOTAL 1.1 mg/dL 0.2-1.2 MAGNESIUM 2.0 mg/dL 1.6-2.6 ANION GAP 12 mmol/L 5-15 ALKALINE PHOSPHATASE 74 U/L 40-150 ALT/SGPT 11 U/L <44 AST/SGOT 44 U/L H 11-34 .CREAT EGFR(CKD-EPI) >90 >60 Jun 21, 2024 06:48 PM [facility] URINALYSIS Specimen Type: URINE No comment entered. Ordering Provider: DELIA MARTINEZ Report Released Date/Time: Jun 21, 2024 05:45 PM Reporting Lab: [facility] [phone] Performing Lab: [facility] [phone] URINE COLOR YELLOW SPECIFIC GRAVITY 1.041 H 1.003-1.03 5 URINE BILIRUBIN NEGATIVE NEGATIVE URINE KETONES NEGATIVE NEGATIVE URINE GLUCOSE >1000 mg/dL <30 URINE PROTEIN 50 mg/dL <20 URINE PH 6.0 5.0-8.0 URINE WBC/HPF >180 /[HPF] H 0-7 URINE BACTERIA FEW URINE RBC/HPF 26 /[HPF] H 0-3 APPEARANCE CLEAR SQUAMOUS EPITHELIAL NONE SEEN /[HPF] URINE BLOOD 2+ NEGATIVE URINE NITRITE POSITIVE NEGATIVE LEUKOCYTE ESTERASE 500 NEGATIVE Jun 21, 2024 05:34 PM [facility] POC CREATININE Specimen Type: BLOOD No comment entered. Ordering Provider: DELIA MARTINEZ Report Released Date/Time: Jun 21, 2024 06:07 PM Reporting Lab: [facility] [phone] Performing Lab: [facility] [phone] POC CREATININE 1.1 mg/dL 0.6-1.3 Jun 21, 2024 05:30 PM [facility] POC ABG/LACTATE Specimen Type: VENOUS BLOOD No comment entered. Ordering Provider: DELIA MARTINEZ Report Released Date/Time: Jun 21, 2024 06:07 PM Reporting Lab: [facility] [phone] Performing Lab: [facility] [phone] POC PH 7.470 H 7.31-7.41 POC PCO2 31.2 mm[Hg] L 41.00-51 .0 0 POC PO2 46 mm[Hg] H 35.0-40.0 POC TCO2 24 mmol/L 24.0-29.0 POC HCO3 22.7 mmol/L L 23.0-28.0 POC BE ECT -1 mmol/L POC SO2 85 H 70-75 POC LACTATE 1.85 mmol/L 0.90-1.70 Jun 21, 2024 05:24 PM [facility] PROTHROMBIN TIME/INR Specimen Type: PLASMA No comment entered. Ordering Provider: DELIA MARTINEZ Report Released Date/Time: Jun 21, 2024 05:30 PM Reporting Lab: [facility] [phone] Performing Lab: [facility] [phone] .INR 1.2 H 0.8-1.1 .PT 13.9 s H 9.4-12.5 Jun 21, 2024 05:24 PM [facility] LIPASE Specimen Type: PLASMA No comment entered. Ordering Provider: DELIA MARTINEZ Report Released Date/Time: Jun 21, 2024 05:30 PM Reporting Lab: [facility] [phone] Performing Lab: [facility] [phone] LIPASE 32 U/L <60 Jun 21, 2024 05:24 PM [facility] EXTRA GOLD GEL TUBE Specimen Type: SERUM No comment entered. Ordering Provider: DELIA MARTINEZ Report Released Date/Time: Jun 21, 2024 05:41 PM Reporting Lab: [facility] [address] Performing Lab: [facility] [address] EXTRA GOLD GEL TUBE RECEIVED Jun 21, 2024 05:24 PM [facility] COMPREHENSIVE METABOLIC PANEL+MG Specimen Type: PLASMA No comment entered. Ordering Provider: DELIA MARTINEZ Report Released Date/Time: Jun 21, 2024 05:30 PM Reporting Lab: [facility] [address] Performing Lab: [facility] [address] CREATININE 0.9 mg/dL 0.7-1.2 UREA NITROGEN 29 mg/dL H 8-26 GLUCOSE 137 mg/dL H 70-100 SODIUM 137 mmol/L 136-145 POTASSIUM 3.0 mmol/L L 3.5-5.1 CHLORIDE 98 mmol/L 98-107 CO2 23 mmol/L 22-29 CALCIUM 10.0 mg/dL 8.4-10.2 PROTEIN,TOTAL 7.8 g/dL 6.4-8.3 ALBUMIN 4.5 g/dL 3.5-5.2 BILIRUBIN, TOTAL 1.5 mg/dL H 0.2-1.2 MAGNESIUM 2.1 mg/dL 1.6-2.6 ANION GAP 16 mmol/L H 5-15 ALKALINE PHOSPHATASE 80 U/L 40-150 ALT/SGPT 17 U/L <44 AST/SGOT 24 U/L 11-34 .CREAT EGFR(CKD-EPI) >90 >60 DIR. BILIRUBIN 0.5 mg/dL <0.5 Jun 21, 2024 05:24 PM [facility] CBC & DIFF Specimen Type: BLOOD Comment: Manual Differential Performed Ordering Provider: DELIA MARTINEZ Report Released Date/Time: Jun 21, 2024 05:30 PM Reporting Lab: [facility] [address] Performing Lab: [facility] [address] WBC 21.3 H 4.0-11.0 RBC 5.48 4.60-6.20 HGB 17.8 g/dL 13.5-17.9 HCT 50.6 41.0-54.0 MCV 92.3 fL 80.0-100.0 MCH 32.5 pg 27.0-33.0 MCHC 35.2 g/dL 32.0-37.5 PLT 274 150-400 MPV 11.2 fL 9.1-13.0 NEUT 90.5 LYMPHS 4.0 MONO 5.5 EOSINO 0.0 BASO 0.0 NORMOCYTIC YES NORMOCHROMIC YES POIKILOCYTOSIS SLIGHT RDW 14.1 11.5-14.5 ANASTASIYA CELLS SLIGHT ABS LYMPH 0.9 L 1.0-4.0 ABS MONO 1.2 H 0.1-1.0 ABS NEUT 19.3 H 2.0-7.7 ABS EOS 0.0 0.0-0.5 ABS BASO 0.0 0.0-0.2 .RBC MORPHOLOGY PRESENT Social History: Smoking Status (Most current) and [...] Smoking Status Comment Juan Manuel putnam May 15, 2024 08:30 AM VA-TOBACCO FORMER USER [facility] Tobacco Use History This section includes a history of the smoking, or tobacco-related health factors, that were collected on or before the date of the Encounter. The data comes from the [place] facility where the Encounter took place. Date/Time Smoking Status/Tobacco Use Comment F acility May 15, 2024 08:30 AM VA-TOBACCO QUIT 15 YRS OR MORE [facility] May 06, 2023 11:30 AM VA-TOBACCO FORMER USER [facility] May 06, 2023 11:30 AM VA-TOBACCO QUIT [...] this document. The data comes from all [place] facilities. Date Advance Directives Provider Source Mar 23, 2016 CLINICAL WARNING [facility] Radiology Reports: +/- 30 days [...] treatment facilities. Date/Time Radiology Report Provider Source Jul 08, 2024 10:09 AM CHEST 2 VIEWS PA A ND LAT: FLACA WEAVER [id number] -1950 M Exm Date: JUL 08, 2024@10:09 Req Phys: KATELYNN PERSON Pat Loc: 2KG/07-08-2024@11:49 Img Loc: MAIN X-RAY Service: [place] [address] (Case 24 COMPLETE) CHEST 2 VIEWS PA AND LAT (RAD Detailed) CPT:25279 Reason for Study: Uptrending WBC, POD 5 Clinical History: Herod IS NOT under investigation for COVID-19 or is COVID-19 negative POD 5, work up for uptrending wbc Responsible provider name and phone number to notify for critical findings if other than user placing the order and pager listed below: User placing orders pager: Katelynn Person LAST CREATININE 0.9 (07/07/24) Report Status: Verified Date Reported: JUL 08, 2024 Date Verified: JUL 08, 2024 Market Developer E-Sig: Report: CHEST 2 VIEWS PA AND LAT HISTORY: Uptrending WBC, POD 5 COMPARISON: CT chest 11/12/2022 TECHNIQUE: Frontal and lateral views of the chest, submitted to the [place] National Teleradiology Program (NTP) for interpretation. FINDINGS: Lungs: Clear. No focal consolidation. No pulmonary edema. Pleura: No pleural effusion or pneumothorax. Mediastinum: Normal size and contour. Bones: Unremarkable. Impression: No acute cardiopulmonary disease. READING PHYSICIAN: Sarbjit Vaughn M.D. -[phone] 07/08/2024 12:46 EST [facility] National Teleradiology Program [phone] (For Medical Practitioner Use Only) Attention Patients / Veterans: If you have questions or concerns about these test results, please contact your ordering provider or primary care team. Primary Interpreting Staff: RADIOLOGY,OUTSIDE SERVICE, Staff Physician / RADIOLOGY,OUTSIDE SERVICE [facility] Jul 08, 2024 10:[address] (AP) ABDOMEN/PE LVIS W CONTRAST: MEGFLACADARCI LOBO [id number] -1950 M Exm Date: JUL 08, 2024@10:00 Req Phys: KATELYNN PERSON [facility]ly [facility] Loc: 2KG/07-08-2024@12:07 Im Loc: CT IMAGING Service: [place] [address] (Case 22 COMPLETE) CT (AP) ABDOMEN/PELVIS W CONTRAST(CT Detailed) CPT:00921 Contrast Media : Non-ionic Iodinated Reason for Study: POD 5, Uptrending WBC - Concern for Abscess/other infection Clinical History: Per Joint Commission Standards, by signing this diagnostic imaging request the ordering provider confirms they have considered patients age and recent imaging history. Defer to radiologist for final CT protocol. ABD/PELVIS W CONTRAST Contact number for responsible provider who can be reached for any questions or notifications of critical findings: Katelynn Person If ordering provider is a trainee, enter the name and contact information of the responsible staff physician. Ramsey Maurice LAST 3: Collection DT Specimen Test Name Result Units Ref Range 07/07/2024 05:30 PLASMA CREATININE 0.9 mg/dL 0.7 - 1.2 07/06/2024 05:30 PLASMA CREATININE 0.7 mg/dL 0.7 - 1.2 07/05/2024 05:30 PLASMA CREATININE 0.7 mg/dL 0.7 - 1.2 07/07/2024 05:30 PLASMA .CREAT EGFR(CKD-E >90 Ref: >=60 07/06/2024 05:30 PLASMA .CREAT EGFR(CKD-E >90 Ref: >=60 07/05/2024 05:30 PLASMA .CREAT EGFR(CKD-E >90 Ref: >=60 Allergies: (Fielding only) TERAZOSIN (Mar 13, 2015) Report Status: Verified Date Reported: JUL 08, 2024 Date Verified: JUL 08, 2024 Market Developer E-Sig: Report: CT (AP) ABDOMEN/PELVIS W CONTRAST HISTORY: POD 5, Uptrending WBC - Concern for Abscess/other infection COMPARISON: June 21, 2024 TECHNIQUE: CT abdomen and pelvis was performed after intravenous contrast. Axial, sagittal and coronal reformatted images. The study was performed at the local [place] facility and images were sent to the [place] National Teleradiology Program (NTP) for interpretation. Number of images received: 803 RADIATION DOSE (mGy*cm): 493 IV CONTRAST: 101 cc Omnipaque 350 FINDINGS: Lung bases: No acute findings. Small pericardial effusion. Coronary calcifications Liver: No suspicious focal lesion. Small nonspecific hepatic hypodensities. Gallbladder and biliary tract: No evidence of acute cholecystitis. No biliary dilatation. Spleen: No suspicious lesion. Pancreas: No acute findings or suspicious lesions. Adrenals: LEFT adrenal nodules stable compared to the previous Kidney and ureters: No hydronephrosis or hydroureter. No obstructive stones. Stable scarring of the RIGHT kidney Bladder: Mild gallbladder wall thickening. Reproductive organs: Unremarkable Peritoneum, mesentery and retroperitoneum: No free air or abscess Gastrointestinal tract: Distal esophagus is unremarkable. Stomach is underdistended. No appendicitis. Mild fluid distention of the small bowel and large bowel. Postsurgical changes of sigmoidectomy with anastomosis. RIGHT lower quadrant ileostomy. There is a surgical drain is present in the pelvis. Mild fat stranding in the pelvis Vascular structures: No abdominal aortic aneurysm. Atherosclerotic calcifications. The major vasculature is patent Lymph nodes: No enlarged abdominal or pelvic lymph nodes. Bones: No fractures or other acute osseous abnormality. Severe lumbar degenerative disease. L5 laminectomy Abdominal wall: No acute findings. Anterior abdominal wall postsurgical changes with skin jeannine Impression: 1. Postsurgical changes with sigmoidectomy and RIGHT lower quadrant ileostomy. No postsurgical fluid collection. Mild fluid distention of small and large bowel likely due to mild ileus. No definite obstruction or other acute findings. Surgical drain is present in the pelvis. 2. Other chronic changes as noted above READING PHYSICIAN: Celestino Blanc -[phone] 07/08/2024 13:[address] [facility] National Teleradiology Program [phone] (For Medical Practitioner Use Only) Attention Patients / Veterans: If you have questions or concerns about these test results, please contact your ordering provider or primary care team. Primary Interpreting Staff: RADIOLOGY,OUTSIDE SERVICE, Staff Physician / RADIOLOGY,OUTSIDE SERVICE [facility] Jun 22, 2024 11:49 AM ABSCESS DRAIN PLAC EMENT PERITONEAL (P): MEGFLACADARCI LOBO [id number] -1950 M Exm Date: JUN 22, 2024@11:49 Req Phys: ANGELA HOLDEN Pat Loc: 2KC/06-22-2024@17:14 [facility] Loc: INTERVENTIONAL RADIOLOGY Service: [place] [address] (Case [id number] COMPLETE) IR PERITONEAL/RETROPERITONEAL PER(ANI Detailed) CPT:66433 Reason for Study: diverticulitis with abscess (Case 3570 COMPLETE) IR MOD SEDATION 10-22 MIN (ANI Detailed) CPT:52331 Clinical History: IS NOT under investigation for COVID-19 or is COVID-19 negative 73 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 please place abscess drain. Contact number for responsible provider who can be reached for any questions or notifications of critical findings: [phone] n/a LAST CREATININE 0.9 (06/21/24) Report Status: Verified Date Reported: JUN 22, 2024 Date Verified: JUN 22, 2024 Market Developer E-Sig:/ES/LISA PENDLETON MD Report: PROCEDURES: Placement of abscess drainage catheter with CT guidance CLINICAL HISTORY: Recurrent pericolonic abscess/colovesicular fistula. Abscess drain placement requested prior to planned surgery. COMPARISONS: 06/21/2024 CT examination ATTENDING RADIOLOGIST: Lisa Pendleton M.D. Medications: The patient was placed on continuous monitoring. Moderate sedation was administered with 150 mcg fentanyl and 3 mg of Versed.. The patient remained stable throughout the procedure. PROCEDURE: The patient/medical decision-maker understood the limitations, alternatives, and risks of the procedure and requested the procedure be performed. Both iMed and oral consent were obtained. A pre-procedural Time-Out was performed per [facility] policy. The patient was placed in the supine position on the CT table. Preprocedural scan performed. The suprapubic region/lower abdominal wall was sterilely prepped and draped in the usual fashion.1% lidocaine without epinephrine was used for local anesthesia. Using real-time CT fluoroscopy, a 5 [employer] Incesis catheter was advanced into the collection in the left pelvis. A wire was coiled in the collection. The tract into the collection was dilated to accommodate the 12 Sinhala locking pigtail drainage catheter. There was return of 20 cc of grossly purulent. . A sample was sent to the Lab for culture. The catheter was secured to the skin with monofilament suture and connected to JUAN bulb suction. Limited postprocedural scan demonstrated no immediate complication. Impression: CT-guided left pelvic abscess drain placement. This drain should remain in place until surgical sigmoid resection on 07/03/2024. Primary Interpreting Staff: LISA PENDLETON MD, RADIOLOGIST (Market Developer) /JRLISA [facility] Jun 22, 2024 11:[address] NEEDLE PLACEMEN T (P): FLACA WEAVER [id number] -1950 M Exm Date: JUN 22, 2024@11:48 Req Phys: ANGELA HOLDEN Amanda Loc: [facility]/06-22-2024@17:14 Img Loc: CT IMAGING Service: [place] [address] (Case [id number] COMPLETE) CT SCAN FOR NEEDLE PLACEMENT (CT Detailed) CPT:62271 Reason for Study: l pelvic abscess drain Clinical History: Report Status: Verified Date Reported: JUN 22, 2024 Date Verified: JUN 22, 2024 Market Developer E-Sig:/ES/LISA PENDLETON MD Report: PROCEDURES: Placement of abscess drainage catheter with CT guidance CLINICAL HISTORY: Recurrent pericolonic abscess/colovesicular fistula. Abscess drain placement requested prior to planned surgery. COMPARISONS: 06/21/2024 CT examination ATTENDING RADIOLOGIST: Lisa Pendleton M.D. Medications: The patient was placed on continuous monitoring. Moderate sedation was administered with 150 mcg fentanyl and 3 mg of Versed.. The patient remained stable throughout the procedure. PROCEDURE: The patient/medical decision-maker understood the limitations, alternatives, and risks of the procedure and requested the procedure be performed. Both iMed and oral consent were obtained. A pre-procedural Time-Out was performed per [facility] policy. The patient was placed in the supine position on the CT table. Preprocedural scan performed. The suprapubic region/lower abdominal wall was sterilely prepped and draped in the usual fashion.1% lidocaine without epinephrine was used for local anesthesia. Using real-time CT fluoroscopy, a 5 Sin[employer] Incesis catheter was advanced into the collection in the left pelvis. A wire was coiled in the collection. The tract into the collection was dilated to accommodate the 12 Sinhala locking pigtail drainage catheter. There was return of 20 cc of grossly purulent. . A sample was sent to the Lab for culture. The catheter was secured to the skin with monofilament suture and connected to JUAN bulb suction. Limited postprocedural scan demonstrated no immediate complication. Impression: CT-guided left pelvic abscess drain placement. This drain should remain in place until surgical sigmoid resection on 07/03/2024. Primary Interpreting Staff: LISA PENDLETON MD, RADIOLOGIST (Market Developer) /JRT LISA PENDLETON [facility] Jun 21, 2024 06:[address] (AP) ABDOMEN/PE LVIS (P): FLACA WEAVER [id number] -1950 M Exm Date: JUN 21, 2024@18:09 Req Phys: DELIA MARTINEZ Loc: [facility] (Re Img Loc: CT IMAGING Service: [place] [address] (Case [id number] COMPLETE) CT (AP) ABDOMEN/PELVIS W CONTRAST(CT Detailed) CPT:99946 Contrast Media : Non-ionic Iodinated Reason for Study: eval LLQ pain Clinical History: LAST 3: Collection DT Specimen Test Name Result Units Ref Range 06/08/2024 10:59 PLASMA CREATININE 0.9 mg/dL 0.7 - 1.2 05/21/2024 06:59 PLASMA CREATININE 0.9 mg/dL 0.7 - 1.2 05/04/2024 08:36 PLASMA CREATININE 0.7 mg/dL 0.7 - 1.2 06/08/2024 10:59 PLASMA .CREAT EGFR(CKD-E >90 Ref: >=60 05/21/2024 06:59 PLASMA .CREAT EGFR(CKD-E >90 Ref: >=60 05/04/2024 08:36 PLASMA .CREAT EGFR(CKD-E >90 Ref: >=60 Allergies: (Fielding only) TERAZOSIN (Mar 13, 2015) Defer to radiologist for final CT protocol. Contact number for responsible provider who can be reached for any questions or notifications of critical findings: Mana Per Joint Commission Standards, by signing this diagnostic imaging request the ordering provider confirms they have considered patients age and recent imaging history. Report Status: Verified Date Reported: JUN 21, 2024 Date Verified: JUN 21, 2024 Market Developer E-Sig:/ES/CARLOS A CUNNINGHAM DO Report: EXAMINATION: CT (AP) ABDOMEN/PELVIS W CONTRAST PROVIDED CLINICAL INFORMATION: Reason for Study: eval LLQ pain LAST 3: Collection DT Specimen Test Name Result Units Ref Range 06/08/2024 10:59 PLASMA CREATININE 0.9 mg/dL 0.7 - 1.2 05/21/2024 06:59 PLASMA CREATININE 0.9 mg/dL 0.7 - 1.2 05/04/2024 08:36 PLASMA CREATININE 0.7 mg/dL 0.7 - 1.2 06/08/2024 10:59 PLASMA .CREAT EGFR( eval LLQ pain TECHNIQUE: Computed tomography of the abdomen and pelvis performed after the uneventful intravenous administration of 100mL Omni 350. DOSE LENGTH PRODUCT: 546mGycm COMPARISON: 05/25/2024 FINDINGS: Left lower quadrant drain is no longer identified. Rim-enhancing gas and fluid collection measuring 2.7 x 4.9 x 2.4 cm is now demonstrated at the previous drain position. The inferomedial wall is indiscernible from fat of the neighboring urinary bladder with a small protrusion to the dome of the bladder containing a small focus of gas on coronal image 74. Distant from this, a larger volume of gas is present in the nondependent aspect of the urinary bladder lumen, also new from prior exam (example series 2, image 359). Laterally, the anterosuperior wall of the collection is indiscernible from a rim-enhancing projection of the sigmoid colon (coronal images 69-72 and sagittal image 114). Stippled gas densities in the central aspect of this projection are characteristic of feces and communicate with the lumen of the sigmoid colon as expected for a diverticulum. However, the projection is larger than the other numerous sigmoid diverticula. There is also thickening of the anterior peritoneum and new hazy increased attenuation and stranding of intra-abdominal adipose extending superiorly from the segmentally thickened sigmoid colon. No solid enhancing mass or shouldering is identified. No free fluid in the abdomen or pelvis. No extraluminal, intraperitoneal gas. Other findings are not significantly changed. Impression: Recurrence of sigmoid diverticulitis complicated by peridiverticular abscess and colovesical fistula. The result of what is dictated in impression was communicated to DELIA MARTINEZ on 06/21/2024 at 1920 with readback verification. Primary Interpreting Staff: CARLOS A CUNNINGHAM DO, RADIOLOGIST (Market Developer) /CARLOS A ROWELL [facility] Pathology Reports: +/- 30 days of the [...] comes from all [place] treatment facilities. Date/Time Pathology Report Provider Source Jul 03, 2024 05:59 AM LR SURGICAL PATHOL OGY REPORT: LOCAL TITLE: LR SURGICAL PATHOLOGY REPORT STANDARD TITLE: PATHOLOGY REPORT DATE OF NOTE: JUL 06, 2024@10:40:48 ENTRY DATE: JUL 06, 2024@10:40:48 AUTHOR: EDUARDO PALOMARES EXP COSIGNER: URGENCY: STATUS: COMPLETED $APHDR Reporting Lab: [facility] [CLIA# [id number]] [place] [address] - - - - - - - [...] - PATHOLOGY REPORT Accession No. [id number] - - - - - - - - - - - - - - - - - - - - - - - - - - - - - - - - - - - - - - - - $TEXT Submitted by: WENCESLAO ARREDONDO Date obtained: Jul 03, 2024 - - - - - - - - - - - - - - - - - - - - - - - - - - - - - - - - - - - - - - - - Specimen (Received Jul 04, 2024 08:29): 1. SIGMOID COLON 2. ANASTOMOTIC RINGS - - - - - - - - - - - - - - - - - - - - - - - - - - - - - - - - - - - - - - - - BRIEF CLINICAL HISTORY: Procedure: Laparoscopic sigmoidectomy with ICG scopes and bilateral ureteral stents - - - - - - - - - - - - - - - - - - - - - - - - - - - - - - - - - - - - - - - - PREOPERATIVE DIAGNOSIS: Diverticulitis - - - - - - - [...] - - - - - POSTOPERATIVE DIAGNOSIS: Diverticulitis Surgeon/physician: WENCESLAO ARREDONDO MD Attending Surgeon: Wenceslao Arredondo MD =-=-=-=-=-=-=-=-=-=-=-=-=-=- =-=-=-=-=-=-=-=-=-=-=-=-=-=- =-=-=-=-=-=-=-=-=-=-=-= - - - - - - - - - - - - - - - - - - - - - - - - - - - - - - - - - - - - - - - - PATHOLOGY REPORT Accession No. [id number] - - - - - - - - - - - - - - - - - - - - - - - - - - - - - - - - - - - - - - - - GROSS DESCRIPTION: The requisition form and specimen(s) identification is confirmed. 1. The specimen is received in formalin labeled sigmoid colon and consists of an unoriented sigmoidectomy specimen measuring 16.7 cm in length x 4.0 cm in diameter. The serosal surface is hyperemic with patchy fibrinous adhesions. The attached mesentery measures up to 2.5 cm in thickness. There is an additional fragment of yellow adipose tissue submitted measuring 19.0 x 9.7 x 0.8 cm. Opening the specimen shows a thickened bowel wall with diverticula noted throughout the specimen. Grossly, there are no perforated diverticula noted. The attached mesentery is diffusely indurated with patchy areas of fibrosis. The additional adipose tissue fragment is grossly unremarkable. Summary of sections: A-B: First circumferential surgical margin, en face; C-D: Second circumferential surgical margin, en face; E-F: Automatic Pilot [employer]ic diverticula; G: Automatic Pilot [employer] section of mesentery; H: Random account representative section of additional adipose tissue fragment. SS. 2. The specimen is received in formalin labeled anastomotic rings and consists of two unoriented colonic tissue rings measuring 1.0 cm in length x 2.2 cm in diameter and 1.2 cm in length x 2.0 cm in diameter. The shorter tissue ring contains numerous jeannine; the jeannine are removed and salvageable tissue is submitted. Summary of sections: A: One colonic tissue ring; B-C: One colonic tissue ring, bisected transversely. SS. (D[place] [place] DES[place]: Microscopic examination performed. DIAGNOSIS: 1. Colon, sigmoid, sigmoidectomy-- - Diverticulosis with perforation and focal abscess formation 2. Colon, anastomotic rings, excision-- - Viable colonic mucosa without diagnostic abnormality /alexi/ EDUARDO PALOMARES MD STAFF PATHOLOGIST Signed Jul 06, 2024@10:40 Performing Laboratory: Surgical Pathology Report Performed By: [facility] [CLIA# [id number]] [place] [address] $FTR - - - - - - - - - - - - - - - - - - - - - - - - - - - - - - - - - - - - - - - - (End of report) EDUARDO PALOMARES MD [facility] Date Jul 06, 2024 - - - - - - - - - - - - - - - - - - - - - - - - - - - - - - - - - - - - - - - - FLACA WEAVER STANDARD FORM 515 ID:[id number] SEX:M :1950 AGE: 73 LOC:76893 ADM:Jun DX:DIVERTICULITIS PCP: Jatinder Cabrera /alexi/ EDUARDO PALOMARES MD STAFF PATHOLOGIST Signed: 07/06/2024 10:40 EDUARDO PALOMARES [facility] Jun 22, 2024 01:15 PM LR MICROBIOLOGY RE PORT: Reporting Lab: [facility] [CLIA# [id number]] [place] [address] Accession [UID]: [id number] [[id number]] Received: Jun 22, 2024@13:38 Collection sample: FLUID Collection date: Jun 22, 2024 13:15 Provider: ANGELA HOLDEN Comment on specimen: LLQ ABSCESS, RECEIVED IN ANAEROBIC TRANSPORT VIAL Test(s) ordered: GRAM STAIN.................... completed: Jun 22, 2024 15:03 CULTURE & SUSCEPTIBILITY...... completed: Jun 25, 2024 * BACTERIOLOGY FINAL REPORT => Jun 25, 2024 10:56 TECH CODE: [id number] GRAM STAIN: DIRECT SMEAR of specimen before culturing shows: 4+ PMNS 4+ GRAM POSITIVE COCCI IN PAIRS SUGGESTIVE OF STAPH, STREP, OR ENTEROCOCCUS 4+ GRAM NEGATIVE RODS 4+ SMALL GRAM POSITIVE RODS 2+ LARGE GRAM POSITIVE RODS 2+ BUDDING YEAST CULTURE PENDING CULTURE RESULTS: 1. ESCHERICHIA COLI - Quantity: 4+ 2. DAVID ALBICANS - Quantity: 2+ 3. ENTEROCOCCUS FAECALIS - Quantity: 2+ 4. OTHER ORGANISMS PRESENT IN LOWER NUMBERS ANTIBIOTIC SUSCEPTIBILITY TEST RESULTS: 1. ESCHERICHIA COLI : 3. ENTEROCOCCUS FAECALIS : : AMPICILLIN.................. .. S AMP/SULBACT................. .. I PIP-TAZO.................... .. S CEFTAZIDIME................. .. S CEFTRIAXONE................. .. S IMIPENEM.................... .. S ERTAPENEM................... .. S GENTAMICIN.................. .. S CIPROFLOXACIN............... .. S TRIMETH/SULFA............... .. S VANCOMYCIN.................. .. S Bacteriology Remark(s): THIS REPORT IS FINAL =--=--=--=--=--=--=--=--=--= --=--=--=--=--=--=--=--=--=- -=--=--=--=--=--=--=-- Performing Laboratory: Bacteriology Report Performed By: [facility] [CLIA# [id number]] [place] [address] [facility] Jun 22, 2024 01:15 PM LR MICROBIOLOGY RE PORT: Reporting Lab: [facility] [CLIA# [id number]] [place] [address] Accession [UID]: [id number] [[id number]] Received: Jun 22, 2024@13:38 Collection sample: FLUID Collection date: Jun 22, 2024 13:15 Provider: ANGELA HOLDEN Comment on specimen: LLQ ABSCESS, RECEIVED IN ANAEROBIC TRANSPORT VIAL Test(s) ordered: ANAEROBIC CULTURE............. completed: Jun 28, 2024 * BACTERIOLOGY FINAL REPORT => Jun 28, 2024 10:08 TECH CODE: [id number] CULTURE RESULTS: HEAVY GROWTH MIXED ANAEROBES Comment: including the followin+ Bacteroides fragilis 4+ Bacteroides vulgatus 4+ Clostridium innocuum Beta-lactamase negative 4+ Bacteroides caccae 4+ Parvimonas micra 4+ Bacteroides uniformis 4+ Gemella morbillorum 4+ anaerobic small, Gram Positive Rods 4+ Bacteroides thetaiotaomicron Standard workup is now complete. Bacteriology Remark(s): THIS REPORT IS FINAL =--=--=--=--=--=--=--=--=--= --=--=--=--=--=--=--=--=--=- -=--=--=--=--=--=--=-- Performing Laboratory: Bacteriology Report Performed By: [facility] [CLIA# [id number]] [place] [address] [facility] Jun 21, 2024 06:12 PM LR MICROBIOLOGY RE PORT: Reporting Lab: [facility] [CLIA# [id number]] [place] [address] Accession [UID]: [id number] [[id number]] Received: Jun 21, 2024@18:12 Collection sample: BLOOD Collection date: Jun 21, 2024 18:12 Provider: DELIA MARTINEZ Comment on specimen: LAC, RECEIVED 2 BLOOD CULTURE BOTTLES Test(s) ordered: CULTURE & SUSCEPTIBILITY...... completed: Jun 27, 2024 * BACTERIOLOGY FINAL REPORT => Jun 27, 2024 14:14 TECH CODE: 2196 CULTURE RESULTS: NO GROWTH 5 DAYS Bacteriology Remark(s): THIS REPORT IS FINAL =--=--=--=--=--=--=--=--=--= --=--=--=--=--=--=--=--=--=- -=--=--=--=--=--=--=-- Performing Laboratory: Bacteriology Report Performed By: [facility] [CLIA# [id number]] [place] [address] [facility] Jun 21, 2024 06:11 PM LR MICROBIOLOGY RE PORT: Reporting Lab: [facility] [CLIA# [id number]] [place] [address] Accession [UID]: [id number] [[id number]] Received: Jun 21, 2024@18:11 Collection sample: BLOOD Collection date: Jun 21, 2024 18:11 Provider: DELIA MARTINEZ Comment on specimen: RAC, RECEIVED 2 BLOOD CULTURE BOTTLES Test(s) ordered: CULTURE & SUSCEPTIBILITY...... completed: Jun 27, 2024 * BACTERIOLOGY FINAL REPORT => Jun 27, 2024 14:14 TECH CODE: 2196 CULTURE RESULTS: NO GROWTH 5 DAYS Bacteriology Remark(s): THIS REPORT IS FINAL =--=--=--=--=--=--=--=--=--= --=--=--=--=--=--=--=--=--=- -=--=--=--=--=--=--=-- Performing Laboratory: Bacteriology Report Performed By: [facility] [CLIA# [id number]] [address] [place] [address] [facility] Encounter Notes: All associated encounter notes This section contains the clinical notes associated to the Encounter. Date/Time Encounter Note(s) Provider Source Jul 13, 2024 06:46 AM RN PROGRESS NOTE: LOCAL TITLE: CCC: CLINICAL TRIAGE STANDARD TITLE: RN PROGRESS NOTE DATE OF NOTE: JUL 13, 2024@06:46:56 ENTRY DATE: JUL 13, 2024@06:46:56 AUTHOR: NEL STONE COSIGNER: URGENCY: STATUS: COMPLETED Patient Demographics Patient Name: FLACA WEAVER Patient Primary [address] [address] [place] [id number] Patient Primary Phone: [phone] Patient : 1950 Patient Age: 73 Caller/Recipient Relation to Patient: Self Emergency Contact: NIMO PIÑA Triage Summary Conducted triage/discussed symptoms Utilized the Triage Tool: No Chief Complaint: ostomy issues Nurse's Recommendation / WHEN: 911 Nurse's Recommendation / WHERE: 911 Patient Disposition Patient/Caregiver agrees to plan of care: No Patient WHERE: ED Other Other - Patient Where Disposition: [facility] [address] [address] Patient WHEN: Now Other - Patient When Disposition: driver courier will bring him now Patient is Urgent or Emergent Nursing Plan and Disposition Referred patient to higher level of care Other Other Description: call 911 now Other course(s) of action Generated msg to PACT/Provider Provided guidance for worsening symptoms: *Caller/Patient* advised to call facilities [facility] Clinical Contact Center or seek immediate medical attention for new or worsening symptoms Nurse Summary Nurse Summary: calling stating he has been in and out of the hospital for past few weeks r/t ostomy issues, states he cannot eat or drink, states he has stool coming from his rectum that smells bad and looks like pus with stool. States he is just calling to inform [facility] that [facility] to go now with driver courier to local ER for evaluation. Herod advised for safety to call 911 now, he verbalized understanding of safety risks and sill will have driver courier bring him to ER now. has no further questions. Triage deferred as states he is just calling to inform [facility] of his plans not for a triage. Clinical Contact Center Codes Clinic/Location: [facility] PHONE CCC RN IMPORTANT: This note was created by [facility] Clinical Contact Center staff. Please do not alert the staff member by adding them as a signer for future communications. Alerts are not monitored by this user. /alexi/ NEL STONE RN REGISTERED NURSE Signed: 07/13/2024 06:46 Receipt Acknowledged By: * AWAITING SIGNATURE * ELIJATINDER Kingston 07/13/2024 07:58 /es/ GUERITA AGUILA RN REGISTERED NURSE NEL STONE [facility]
--- OUTSIDE RECORDS SUMMARY | 2024-07-16 07:13 | XMS_ITS | Encounter Summary ---
Author Name [facility] [place] Organization [facility] [place] Address [address] [place] [address] Care Team Providers Care Natural Resources Instructor Name Role Phone JATINDER CABRERA Primary Care [...] PART A Sep 29, 2016 PART A [id number] [phone] JUDY WEAVER PATIENT Selected Encounter This section includes the information on record at [place] for the Encounter. Date/Time Encounter Type Encounter Description Reason Provider Source Apr 29, 2024 07:37 AM Outpatient Encounter TELEPHONE TRIAGE JOSE MIGUEL GREWAL Mirna Encounter Template Text not used by [place] [...] 10:00 AM AMBULATORY - [place] [facility] May 04, 2024 09:00 AM AMBUL[place]ORY - NONE [place] [facility] May 07, 2024 08:45 AM AMBUL[place]ORY [place]ICINE [place] [facility] May 08, 2024 02:00 PM AMBULATORY - NONE [place] [facility] May 09, 2024 07:30 AM AMB[place]GERY [place] [facility] May 11, 2024 01:00 PM AMBULATORY - NONE [place] [facility] May 11, 2024 03:30 PM AMBULATORY - NONE [place] [facility] May 15, 2024 08:30 AM [place]IC[place] [facility] May 16, 2024 07:45 AM AMBUL[place]ORY [place] SURGERY [place] [facility] May 22, 2024 07:30 AM [place] [facility] May 22, 2024 05:30 PM AMBULATORY - NONE [place] [facility] May 25, 2024 08:22 AM [place]ORY [place]ONE [place] [facility] May 25, 2024 09:00 AM [place]ORY [place]ONE [place] [facility] May 28, 2024 08:15 AM AMBULATORY - SURGERY [place] [facility] Jun 04, 2024 11:30 AM AM[place]ORY [place] NONE [place] [facility] Jun 08, 2024 11:00 AM AMBULATORY - [facility]ERY [facility] Jun 08, 2024 12:45 PM AMBULATORY - NONE [place] [facility] Jun 08, 2024 01:15 PM AMBULATORY - MEDICINE [facility] Jun 08, 2024 01:45 PM AMBULATORY - SURGERY [facility] Jun 21, 2024 04:48 PM AMBULATORY - MEDICINE [facility] Active, Pending, and Scheduled Orders This [...] SUSCEPTIBILITY ~Culture sample from JUAN drain output [facility] Apr 26, 2024 10:10 AM Laboratory - Microbiology Order GRAM STAIN WOUND OTHER WC ONCE ~For Test: GRAM STAIN ~JUAN drain culture/gram stain [facility] May 28, 2024 12:00 AM Laboratory - Blood Bank Order TYPE & SCREEN - LAB BLOOD SP [facility] Jun 08, 2024 09:57 AM Laboratory - Chemistry Order URINALYSIS URINE WC ONCE [facility] Jun 12, 2024 12:00 AM Laboratory - Chemistry Order BNP PLASMA SP ONCE [facility] Lab Results: +/- 30 [...] Range Comment May 21, 2024 06:59 AM [facility] BASIC METABOLIC PANEL+MG Specimen Type: PLASMA No comment entered. Ordering Provider: GOLDIE CABRERA Report Released Date/Time: May 15, 2024 08:34 AM Reporting Lab: [facility] [phone] Performing Lab: [facility] [phone] CREATININE 0.9 mg/dL 0.7-1.2 UREA NITROGEN 18 mg/dL 8-26 GLUCOSE 126 mg/dL H 70-100 SODIUM 138 mmol/L 136-145 POTASSIUM 4.0 mmol/L 3.5-5.1 CHLORIDE 105 mmol/L 98-107 CO2 24 mmol/L 22-29 CALCIUM 9.8 mg/dL 8.4-10.2 MAGNESIUM 2.0 mg/dL 1.6-2.6 ANION GAP 9 mmol/L 5-15 .CREAT EGFR(CKD-EPI) >90 >60 May 04, 2024 08:36 AM [facility] BASIC METABOLIC PANEL+MG Specimen Type: PLASMA No comment entered. Ordering Provider: GOLDIE CABRERA Report Released Date/Time: May 03, 2024 12:52 PM Reporting Lab: [facility] [phone] Performing Lab: [facility] [address] CREATININE 0.7 mg/dL 0.7-1.2 UREA NITROGEN 13 mg/dL 8-26 GLUCOSE 91 mg/dL 70-100 SODIUM 141 mmol/L 136-145 POTASSIUM 3.6 mmol/L 3.5-5.1 CHLORIDE 109 mmol/L H 98-107 CO2 25 mmol/L 22-29 CALCIUM 8.9 mg/dL 8.4-10.2 MAGNESIUM 2.0 mg/dL 1.6-2.6 ANION GAP 7 mmol/L 5-15 .CREAT EGFR(CKD-EPI) >90 >60 Apr 26, 2024 07:16 AM [facility] BASIC METABOLIC PANEL+MG Specimen Type: PLASMA No comment entered. Ordering Provider: JONO RANDOLPH Report Released Date/Time: Apr 25, 2024 02:50 PM Reporting Lab: [facility] [phone] Performing Lab: [facility] [phone] CREATININE 0.7 mg/dL 0.7-1.2 UREA NITROGEN 15 mg/dL 8-26 GLUCOSE 106 mg/dL H 70-100 SODIUM 139 mmol/L 136-145 POTASSIUM 3.4 mmol/L L 3.5-5.1 CHLORIDE 105 mmol/L 98-107 CO2 25 mmol/L 22-29 CALCIUM 8.5 mg/dL 8.4-10.2 MAGNESIUM 2.2 mg/dL 1.6-2.6 ANION GAP 9 mmol/L 5-15 .CREAT EGFR(CKD-EPI) >90 >60 Apr 25, 2024 05:10 PM [facility] BASIC METABOLIC PANEL+MG Specimen Type: PLASMA No comment entered. Ordering Provider: GIOVANNI ADLER Report Released Date/Time: Apr 25, 2024 05:04 PM Reporting Lab: [facility] [phone] Performing Lab: [facility] [address] CREATININE 0.7 mg/dL 0.7-1.2 UREA NITROGEN 15 mg/dL 8-26 GLUCOSE 104 mg/dL H 70-100 SODIUM 139 mmol/L 136-145 POTASSIUM 3.2 mmol/L L 3.5-5.1 CHLORIDE 103 mmol/L 98-107 CO2 28 mmol/L 22-29 CALCIUM 8.5 mg/dL 8.4-10.2 MAGNESIUM 2.2 mg/dL 1.6-2.6 ANION GAP 8 mmol/L 5-15 .CREAT EGFR(CKD-EPI) >90 >60 Apr 25, 2024 07:46 AM [facility] BASIC METABOLIC PANEL+MG Specimen Type: PLASMA No comment entered. Ordering Provider: GIOVANNI ADLER Report Released Date/Time: Apr 24, 2024 12:37 PM Reporting Lab: [facility] [phone] Performing Lab: [facility] [phone] CREATININE 0.7 mg/dL 0.7-1.2 UREA NITROGEN 14 mg/dL 8-26 GLUCOSE 127 mg/dL H 70-100 SODIUM 139 mmol/L 136-145 POTASSIUM 2.9 mmol/L L 3.5-5.1 CHLORIDE 101 mmol/L 98-107 CO2 29 mmol/L 22-29 CALCIUM 8.7 mg/dL 8.4-10.2 MAGNESIUM 2.3 mg/dL 1.6-2.6 ANION GAP 9 mmol/L 5-15 .CREAT EGFR(CKD-EPI) >90 >60 Apr 24, 2024 04:42 PM [facility] BASIC METABOLIC PANEL+MG Specimen Type: PLASMA No comment entered. Ordering Provider: GIOVANNI ADLER Report Released Date/Time: Apr 24, 2024 12:37 PM Reporting Lab: [facility] [phone] Performing Lab: [facility] [address] CREATININE 0.7 mg/dL 0.7-1.2 UREA NITROGEN 16 mg/dL 8-26 GLUCOSE 97 mg/dL 70-100 SODIUM 138 mmol/L 136-145 POTASSIUM 2.7 mmol/L L 3.5-5.1 CHLORIDE 99 mmol/L 98-107 CO2 30 mmol/L H 22-29 CALCIUM 8.4 mg/dL 8.4-10.2 MAGNESIUM 2.1 mg/dL 1.6-2.6 ANION GAP 9 mmol/L 5-15 .CREAT EGFR(CKD-EPI) >90 >60 Apr 24, 2024 07:36 AM [facility] BASIC METABOLIC PANEL+MG Specimen Type: PLASMA Comment: Critical Value Reported To: Cait Zamorano RN 8-27-24@[address] [place] [address]. Critical value report confirmed. Ordering Provider: AARON VICTOR Report Released Date/Time: Apr 23, 2024 05:30 PM Reporting Lab: [facility] [address] Performing Lab: [facility] [phone] CREATININE 0.7 mg/dL 0.7-1.2 UREA NITROGEN 16 mg/dL 8-26 GLUCOSE 105 mg/dL H 70-100 SODIUM 138 mmol/L 136-145 POTASSIUM 2.3 mmol/L LL 3.5-5.1 CHLORIDE 98 mmol/L 98-107 CO2 29 mmol/L 22-29 CALCIUM 8.3 mg/dL L 8.4-10.2 MAGNESIUM 2.2 mg/dL 1.6-2.6 ANION GAP 11 mmol/L 5-15 .CREAT EGFR(CKD-EPI) >90 >60 Apr 24, 2024 07:35 AM [facility] CBC & DIFF Specimen Type: BLOOD Comment: Automated Differential Performed Ordering Provider: AARON VICTOR Report Released Date/Time: Apr 23, 2024 05:30 PM Reporting Lab: [facility] [phone] Performing Lab: [facility] [address] WBC 10.49 10*3/uL 4.0-11.0 RBC 3.83 10*6/uL [...] 10*3/uL 0-0.1 Apr 23, 2024 01:20 PM [facility] LACTIC ACID Specimen Type: PLASMA No comment entered. Ordering Provider: AARON VICTOR Report Released Date/Time: Apr 23, 2024 12:05 PM Reporting Lab: [facility] [address] Performing Lab: [facility] [address] LACTIC ACID 1.5 mmol/L 0.5-2.2 Apr 23, 2024 01:20 PM [facility] ACT PART THROMBO TIME Specimen Type: PLASMA No comment entered. Ordering Provider: AARON VICTOR Report Released Date/Time: Apr 23, 2024 12:05 PM Reporting Lab: [facility] [address] Performing Lab: [facility] [address] APTT 29.3 s 25.1-36.5 Apr 23, 2024 01:20 PM [facility] PROTHROMBIN TIME/INR Specimen Type: PLASMA No comment entered. Ordering Provider: AARON VICTOR Report Released Date/Time: Apr 23, 2024 12:05 PM Reporting Lab: [facility] [address] Performing Lab: [facility] [address] .INR 1.2 H 0.8-1.1 .PT 14.5 s H 9.4-12.5 Apr 23, 2024 01:20 PM [facility] COMPREHENSIVE METABOLIC PANEL+MG Specimen Type: PLASMA No comment entered. Ordering Provider: AARON VICTOR Report Released Date/Time: Apr 23, 2024 12:05 PM Reporting Lab: [facility] [address] Performing Lab: [facility] [address] CREATININE 0.7 mg/dL 0.7-1.2 UREA NITROGEN 19 [...] >90 >60 Apr 23, 2024 01:20 PM [facility] CBC & DIFF Specimen Type: BLOOD Comment: Automated Differential Performed Ordering Provider: AARON VICTOR Report Released Date/Time: Apr 23, 2024 12:05 PM Reporting Lab: [facility] [address] Performing Lab: [facility] [address] WBC 12.50 10*3/uL H 4.0-11.0 RBC 4.07 [...] 10*3/uL 0-0.1 Apr 21, 2024 07:28 AM [facility] URINALYSIS Specimen Type: URINE No comment entered. Ordering Provider: ANANDA HUGGINS Report Released Date/Time: Apr 21, 2024 07:37 AM Reporting Lab: [facility] [address] Performing Lab: [facility] [address] URINE COLOR COLORLESS SPECIFIC GRAVITY 1.009 1.003-1.03 [...] 06, 2023 11:30 AM VA-TOBACCO FORMER USER [facility] Tobacco Use History This section includes a history of the smoking, or tobacco-related health factors, that were collected on or before the date of the Encounter. The data comes from the [place] facility where the Encounter took place. Date/Time Smoking Status/Tobacco Use Comment F acility May 06, 2023 11:30 AM VA-TOBACCO QUIT 15 YRS OR MORE [facility] Jun 04, 2022 09:00 AM VA-TOBACCO FORMER USER [facility] Jun 04, 2022 09:00 AM VA-TOBACCO QUIT 15 YRS OR MORE [facility] Jul 10, 2021 08:00 AM VA-TOBACCO FORMER USER [facility] Jul 10, 2021 08:00 AM VA-TOBACCO QUIT 5 TO < 15 YRS [facility] May 23, 2020 08:30 AM VA-TOBACCO FORMER USER [facility] May 23, 2020 08:30 AM VA-TOBACCO QUIT 5 TO < 15 YRS [facility] Mar 20, 2019 04:03 PM VA-TOBACCO FORMER USER [facility] Mar 20, 2019 04:03 PM VA-TOBACCO QUIT 5 TO < 15 YRS [facility] Mar 21, 2018 08:13 AM FORMER TOBACCO USER 7Y OR GREATE R [facility] Feb 24, 2017 09:24 AM FORMER TOBACCO USER 7Y OR GREATE R [facility] January 07, 2016 08:01 AM FORMER TOBACCO USE >1Y <7Y [facility] Feb 03, 2015 07:58 AM FORMER TOBACCO USE <1Y [facility] Feb 26, 2014 08:41 AM CURRENT TOBACCO USER [facility] May 13, 2011 01:45 PM CURRENT TOBACCO USER [facility] Advance Directives: All historical and current Section Date Range: From patient's date of to the date document was created. This section includes ALL of a patient's completed or amended [place] Advance and Rescinded Directives. The entries below indicate that a directive exists for the patient, but an actual copy is not included with this document. The data comes from all [place] facilities. Date Advance Directives Provider Source Mar 23, 2016 CLINICAL WARNING [facility] Radiology Reports: +/- 30 [...] IR FISTULOGRAM OR SINOGRAM : FLACA WEAVER [id number] -1950 M Exm Date: MAY 25, 2024@09:00 Req Phys: AMINTA ESCALONA Pat Loc: [facility] X[facility] INTERVENTIONAL RADIO Img Loc: INTERVENTIONAL RADIOLOGY Service: [place] [address] (Case [id number] COMPLETE) IR FISTULOGRAM OR SINOGRAM (ANI Detailed) CPT:08483 Contrast Media : unspecified contrast media Reason for Study: s/p drain placement for diverticular abscess- assess for drain Clinical History: Dows IS NOT under investigation for COVID-19 or is COVID-19 negative 2 week follow up per Dr Escalona Contact number for responsible provider who can be reached for any questions or notifications of critical findings: [id number] [address] LAST 3: Collection DT Specimen Test [...] 2024 Date Verified: MAY 25, 2024 Cell Maker E-Sig:/ES/DAVID BURNS MD Report: PROCEDURES 05/25/2024 9:48 [...] Interpreting Staff: DAVID BURNS MD, RADIOLOGIST (Cell Maker) /DAVID PAK [facility] May 25, 2024 08:[address] (AP) ABDOMEN/PELVIS (P): FLACA WEAVER [id number] -1950 M Exm Date: MAY 25, 2024@08:23 Req Phys: DAVID BURNS Loc: [facility] X[facility] INTERVENTIONAL RADIO Img Loc: CT IMAGING Service: [place] [address] (Case [id number] COMPLETE) CT (AP) ABDOMEN/PELVIS W/O CONTRA(CT Detailed) CPT:89939 Reason for Study: assess abscess and possible drain removal Clinical History: no contrast per venancio Per Joint Commission Standards, by signing this diagnostic imaging request the ordering provider confirms they have considered patients age and recent imaging history. Defer to radiologist for final CT protocol. Contact number for responsible provider who can be reached for any questions or notifications of critical findings: 2930 [address] LAST 3: Collection DT Specimen Test [...] PLASMA .CREAT EGFR(CKD-E >90 Ref: >=60 Allergies: ([place] only) TERAZOSIN (Mar 13, 2015) Report Status: Verified Date Reported: MAY 25, 2024 Date Verified: MAY 25, 2024 Cell Maker E-Sig:/ES/JESSENIA GOODMAN MD Report: EXAM: CT abdomen and pelvis without intravenous contrast. 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 TECHNIQUE: Helical acquisition of image data was performed for the abdomen and pelvis without intravenous contrast. Dose: 512.57 mGy*cm COMPARISON: CT abdomen pelvis with contrast 05/11/[address] abdomen pelvis 04/23/2024.; CT abdomen pelvis 05/05/2020 FINDINGS: CULTURE MEDIA LABORATORY ASSISTANT: Pigtail catheter projecting over the left hemipelvis [...] Interpreting Staff: JESSENIA GOODMAN MD, RADIOLOGIST (Cell Maker) Primary Interpreting Resident: YOHANNES MELO DO, COMPRESSOR HOUSE OPERATOR /JESSENIA LOUIE [facility] May 11, 2024 12:39 PM IR FISTULOGRAM / SINOGRAM (P): MEGFLACA YAMIL [id number] -1950 M Exm Date: MAY 11, 2024@12:39 Req Phys: PALMIRA POWELL Loc: [facility] C/R FOLLOW-UP CLINIC (Req' Img Loc: INTERVENTIONAL RADIOLOGY Service: [place] [address] (Case [id number] COMPLETE) IR INJECTION FOR SINOGRAM DIAGNOS(ANI Detailed) CPT:18497 Contrast Media : Non-ionic Iodinated Reason for Study: s/p drain placement for diverticular abscess- assess for drain (Case [id number] COMPLETE) IR FISTULOGRAM OR SINOGRAM (ANI Detailed) CPT:17138 Contrast Media : unspecified contrast media (Case [id number] COMPLETE) IR DRAINAGE CATHETER SUPPLY (ANI Detailed) CPT:C1729 Clinical History: Dows IS NOT under investigation for COVID-19 or is COVID-19 negative s/p drain placement for diverticular abscess- assess for drain removal Contact number for responsible provider who can be reached for any questions or notifications of critical findings: [phone] Palmira Powell MD LAST CREATININE 0.7 (05/04/24) Report Status: Verified Date Reported: MAY 11, 2024 Date Verified: MAY 11, 2024 Cell Maker E-Sig:/ES/AMINTA ESCALONA MD Report: PROCEDURES Abdominal drain [...] Interpreting Staff: AMINTA ESCALONA MD, INTERVENTIONAL RADIOLOGIST (Cell Maker) /AMINTA VELAZCO [facility] May 11, 2024 11:[address] (AP) ABDOMEN/PELVIS (P): FLACA WEAVER [id number] -1950 M Exm Date: MAY 11, 2024@11:40 Req Phys: PALMIRA POWELL Loc: [facility] C/R FOLLOW-UP CLINIC (Req' Img Loc: CT IMAGING Service: [place] [address] (Case [id number] COMPLETE) CT (AP) ABDOMEN/PELVIS W CONTRAST(CT Detailed) CPT:27645 Contrast Media : Non-ionic Iodinated Reason for [...] any questions or notifications of critical findings: [phone] Palmira Powell MD LAST 3: Collection DT [...] PLASMA .CREAT EGFR(CKD-E >90 Ref: >=60 Allergies: ([place] only) TERAZOSIN (Mar 13, 2015) Report Status: Verified Date Reported: MAY 11, 2024 Date Verified: MAY 11, 2024 Cell Maker E-Sig:/ES/LISA PENDLETON MD Report: CT abdomen and [...] Interpreting Staff: LISA PENDLETON MD, RADIOLOGIST (Cell Maker) /JRT LISA PENDLETON [facility] Apr 24, 2024 02:13 PM ABSCESS DRAIN PLACEMENT PERITONEAL (P): FLACA WEAVER [id number] -1950 M Exm Date: APR 24, 2024@14:13 Req Phys: TAURUS WOOD Loc: 3KS/04-24-2024@16:07 Img Loc: INTERVENTIONAL RADIOLOGY Service: PRIMARY CARE - MED OFFICE [place], [place] [address] (Case [id number] COMPLETE) IR PERITONEAL/RETROPERITONEAL PER(ANI Detailed) CPT:89026 Reason for Study: diverticular abscess Clinical History: IS NOT under investigation for COVID-19 or is COVID-19 negative 73yo M with hx of recurrent diverticulitis, transferred from [facility] 04/[address] 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 Found to have 2nd degree heart block, planning pacemaker placement Contact number for responsible provider who can be reached for any questions or notifications of critical findings: [phone] If ordering provider is a trainee, enter the name and contact information of the responsible staff physician. Palmira Powell MD LAST CREATININE 0.7 (04/23/24) Report Status: Verified Date Reported: APR 24, 2024 Date Verified: APR 24, 2024 Cell Maker E-Sig:/ES/SADIA DEE MD Report: PROCEDURES: Placement of [...] anesthesia. Using real-time CT fluoroscopy, a 5 Kazakh [employer] catheter was advanced into the collection in the left lower quadrant. A wire was coiled in the collection. The tract into the collection was dilated to accommodate the 12 Kazakh locking pigtail drainage catheter. The catheter was secured to the skin with monofilament suture and connected to JUAN bulb suction. Impression: Successful placement of a 12 Kazakh locking pigtail drainage catheter in the left lower quadrant abscess. This catheter is connected to JUAN bulb suction with flushes, as ordered. I, SADIA DEE, have reviewed the images and report. Primary Interpreting Staff: SADIA DEE MD, RADIOLOGIST (Cell Maker) Primary Interpreting Resident: JEFFREY FLOWER MD, COMPRESSOR HOUSE OPERATOR /SADIA SNYDER [facility] Apr 24, 2024 02:[address] NEEDLE PLACEMENT (P): MEGFLACADARCI LOBO [id number] -1950 M Exm Date: APR 24, 2024@14:11 Req Phys: TAURUS WOOD Loc: 3K04-24-2024@16:07 Img Loc: CT IMAGING Service: PR[place] [address] (Case [id number] COMPLETE) CT SCAN FOR NEEDLE PLACEMENT (CT Detailed) CPT:92767 Reason for Study: diverticular abscess Clinical History: Report Status: Verified Date Reported: APR 24, 2024 Date Verified: APR 24, 2024 Cell Maker E-Sig:/ES/SADIA DEE MD Report: PROCEDURES: Placement of [...] anesthesia. Using real-time CT fluoroscopy, a 5 Kazakh Yueh catheter was advanced into the collection in the left lower quadrant. A wire was coiled in the collection. The tract into the collection was dilated to accommodate the 12 Kazakh locking pigtail drainage catheter. The catheter was secured to the skin with monofilament suture and connected to JUAN bulb suction. Impression: Successful placement of a 12 Kazakh locking pigtail drainage catheter in the left lower quadrant abscess. This catheter is connected to JUAN bulb suction with flushes, as ordered. I, SADIA DEE, have reviewed the images and report. Primary Interpreting Staff: SADIA DEE MD, RADIOLOGIST (Cell Maker) Primary Interpreting Resident: JEFFREY FLOWER MD, COMPRESSOR HOUSE OPERATOR /B SADIA DEE [facility] Apr 23, 2024 06:36 AM [facility] CT ABDOMEN/PELVIS: FLACA WEAVER [id number] -1950 M Ex Date: APR 23, 2024@06:36 Req Phys: MCKAY VICTOR Loc: 04-24-2024@10:25 [facility] Loc: OUTSOURCE CT Service: Unknown (Case [id number] COMPLETE) [facility] CT ABDOMEN/PELVIS (CT Detailed) CPT:36640 Reason for Study: OUTSIDE STUDY Clinical History: [...] Diagnostic Code: VERIFIED BY: / *ELECTRONICALLY FILED* [facility] Pathology Reports: +/- 30 [...] AM LR MICROBIOLOGY RE PORT: Reporting Lab: [facility] [CLIA# [id number]] [place] [address] Accession [UID]: [id number] [[id number]] Received: Apr 21, 2024@08:16 Collection sample: URINE Collection date: Apr 21, 2024 07:28 Provider: ANANDA HUGGINS Comment on specimen: RECEIVED IN STERILE CUP Test(s) ordered: CULTURE & SUSCEPTIBILITY...... completed: Apr 22, 2024 * BACTERIOLOGY FINAL REPORT => Apr 22, 2024 08:38 TECH CODE: [id number] CULTURE RESULTS: NO GROWTH 24 HOURS Bacteriology Remark(s): THIS REPORT IS FINAL =--=--=--=--=--=--=--=--=--=--=--=- -=--=--=--=--=--=--=--=--=--=--=--= --=--=-- Performing Laboratory: Bacteriology Report Performed By: [facility] [CLIA# [id number]] [place] [address] [facility] Encounter Notes: All associated [...] Patient Name: FLACA WEAVER Patient Primary [address]: [address] [place] [id number] Patient Primary Phone: [phone] Patient : 1950 Patient Age: 73 Caller/Recipient Relation to Patient: Self Emergency Contact: NIMO PIÑA Nursing Plan and Disposition Other course(s) of action Generated msg to PACT/Provider Nurse Summary Nurse Summary: The is calling to report that he has a drain that was placed and it is leaking clear fluid. Obtained identifier information from the . Dows began raising his voice and cursing at this Nurse. Attempted to start verbal triage assessment and yelled 'just forget it lady. I will just go to the emergency room,' and then disconnected and hung up the call. Non-Triage/Non-Symptom Call Generated msg to PACT/Provider-NonTriage Clinical Contact Center Codes Clinic/Location: V23 [facility] PHONE CCC RN IMPORTANT: This note was created by [facility] Clinical Contact Center staff. Please do not alert the staff member by adding them as a signer for future communications. Alerts are not monitored by this user. /es/ jose miguel grewal REGISTERED NURSE Signed: 04/29/2024 06:37 Receipt Acknowledged By: 05/01/2024 15:53 /es/ Jatinder Cabrera MD Physician 05/01/2024 09:09 /es/ GUERITA AGUILA RN REGISTERED NURSE JOSE MIGUEL GREWAL [facility]
--- OUTSIDE RECORDS SUMMARY | 2024-07-16 07:13 | XMS_ITS | Encounter Summary ---
Author Name [facility] [place] [facility] [place] [facility] [facility] [place] Address [address] [place] [address] Care Team Providers Care Car Refinisher Name Role Phone JATINDER CABRERA Primary Care [...] PART A Sep 29, 2016 PART A [id number] [phone] JUDY WEAVER PATIENT Selected Encounter This section includes the information on record at [place] for the Encounter. Date/Time Encounter Type Encounter Description Reason Provider Source May 02, 2024 10:00 AM OFFICE O/P EST LOW 20 MIN GENERAL SURGERY ICD-10-CM K57.20 Dvtrcli of lg int w perforation and abscess w/o bleeding PALMIRA POWELL Encounter Template Text not used by [place] Assessments - Encounter Diagnoses This section includes the primary and secondary diagnoses documented for the Encounter. Date/Time Primary/Secondary Diagnosis Diagnosis Name Provider Source May 03, 2024 05:24 PM PRIMARY Dvtrcli of lg int w perforation and abscess w/o bleeding PALMIRA POWELL [facility] May 03, 2024 05:24 PM SECONDARY Vesicointestinal fistula PALMIRA POWELL [facility] Plan of Treatment: Future Appointments (+ 6 months) and Future Tests (+/- 45 days) The Plan of Treatment section includes future care activities for the patient from all [place] treatmentshriners hospital. This section includes future appointments and [...] SURGERY [place] [facility] Jun 21, 2024 04:48 PM AMBULATORY - MEDICINE [place] [facility] Jun 21, 2024 05:45 PM AMBULATORY - NONE [place] [facility] Active, Pending, and Scheduled Orders This section includes a listing of several types of active, pending, and scheduled orders, including clinic medications orders, diagnostic test orders, procedure orders and consult orders; where thestart date of the order is 45 days before the date of the Encounter or 45 days after the date of the Encounter. The data [...] URINALYSIS URINE WC ONCE [facility] Jun 12, 2024 12:00 AM Laboratory - Chemistry Order BNP PLASMA SP ONCE [facility] Lab Results: +/- [...] May 15, 2024 08:34 AM Reporting Lab: [facility] [phone] Performing Lab: [facility] [address] CREATININE 0.9 mg/dL 0.7-1.2 UREA NITROGEN 18 [...] May 03, 2024 12:52 PM Reporting Lab: [facility] [address] Performing Lab: [facility] [address] CREATININE 0.7 mg/dL 0.7-1.2 UREA NITROGEN 13 [...] PM Reporting Lab: [facility] [address] Performing Lab: [facility] [address] CREATININE 0.7 mg/dL 0.7-1.2 UREA NITROGEN 15 [...] PM Reporting Lab: [facility] [address] Performing Lab: [facility] [address] CREATININE 0.7 mg/dL 0.7-1.2 UREA NITROGEN 15 [...] PM Reporting Lab: [facility] [address] Performing Lab: [facility] [address] CREATININE 0.7 mg/dL 0.7-1.2 UREA NITROGEN 14 [...] PM Reporting Lab: [facility] [address] Performing Lab: [facility] [address] CREATININE 0.7 mg/dL 0.7-1.2 UREA NITROGEN 16 [...] Critical Value Reported To: Cait Zamorano RN 04-24-24@[address] [place] [address]. Critical value report confirmed. Ordering Provider: AARON VICTOR Report Released Date/Time: Apr 23, 2024 05:30 PM Reporting Lab: [facility] [address] Performing Lab: [facility] [address] CREATININE 0.7 mg/dL 0.7-1.2 UREA NITROGEN 16 [...] PM Reporting Lab: [facility] [address] Performing Lab: [facility] [address] WBC 10.49 10*3/uL 4.0-11.0 RBC 3.83 10*6/uL [...] PM Reporting Lab: [facility] [address] Performing Lab: [facility] [address] LACTIC ACID 1.5 mmol/L 0.5-2.2 Apr 23, 2024 01:20 PM [facility] ACT PART THROMBO TIME Specimen Type: PLASMA No comment entered. Ordering Provider: AARON VICTOR Report Released Date/Time: Apr 23, 2024 12:05 PM Reporting Lab: [facility] [address] Performing Lab: [facility] [address] APTT 29.3 s 25.1-36.5 Apr 23, 2024 01:20 PM [facility] PROTHROMBIN TIME/INR Specimen Type: PLASMA No comment entered. Ordering Provider: AARON VICTOR Report Released Date/Time: Apr 23, 2024 12:05 PM Reporting Lab: [facility] [address] Performing Lab: [facility] [address] .INR 1.2 H 0.8-1.1 .PT 14.5 s H 9.4-12.5 Apr 23, 2024 01:20 PM [facility] COMPREHENSIVE METABOLIC PANEL+MG Specimen Type: PLASMA No comment entered. Ordering Provider: AARON VICTOR Report Released Date/Time: Apr 23, 2024 12:05 PM Reporting Lab: [facility] [address] Performing Lab: [facility] [address] CREATININE 0.7 mg/dL 0.7-1.2 UREA NITROGEN 19 [...] PM Reporting Lab: [facility] [address] Performing Lab: [facility] [address] WBC 12.50 10*3/uL H 4.0-11.0 RBC 4.07 [...] AM Reporting Lab: [facility] [address] Performing Lab: [facility] [address] URINE COLOR COLORLESS SPECIFIC GRAVITY 1.009 1.003-1.03 [...] May 02, 2024 10:00 AM 177/74 [facility] May 02, 2024 09:55 AM 97.7 65 201/[address] [facility] Social History: Smoking Status (Most current) [...] Mar 23, 2016 CLINICAL WARNING [facility] Radiology Reports: +/- 30 [...] IR FISTULOGRAM OR SINOGRAM : FLACA WEAVER [id number] -1950 M Exm Date: MAY 25, 2024@09:00 Req Phys: AMINTA ESCALONA Loc: [facility] INTERVENTIONAL RADIO Img Loc: INTERVENTIONAL RADIOLOGY Service: [place] [address] (Case [id number] COMPLETE) IR FISTULOGRAM OR SINOGRAM (ANI Detailed) CPT:45140 Contrast Media : unspecified contrast media Reason for Study: s/p drain placement for diverticular abscess- assess for drain Clinical History: [place] IS NOT under investigation for COVID-19 or [...] 25, 2024 Date Verified: MAY 25, 2024 Application Consultant E-Sig:/ES/DAVID BURNS MD Report: PROCEDURES 05/25/2024 9:48 [...] Primary Interpreting Staff: DAVID BURNS MD, RADIOLOGIST (Application Consultant) /CSS DAVID BURNS [facility] May 25, 2024 08:[address] (AP) ABDOMEN/PELVIS (P): FLACA WEAVER [id number] -1950 M Exm Date: MAY 25, 2024@08:23 Req Phys: DAVID BURNS Pat Loc: [facility] INTERVENTIONAL RADIO Img Loc: CT IMAGING Service: [place] [address] (Case [id number] COMPLETE) CT (AP) ABDOMEN/PELVIS W/O CONTRA(CT Detailed) CPT:36723 Reason for Study: assess abscess and possible [...] PLASMA .CREAT EGFR(CKD-E >90 Ref: >=60 Allergies: ([place] only) TERAZOSIN (Mar 13, 2015) Report Status: Verified Date Reported: MAY 25, 2024 Date Verified: MAY 25, 2024 Application Consultant E-Sig:/ES/JESSENIA GOODMAN MD Report: EXAM: CT abdomen and pelvis without intravenous contrast. 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 TECHNIQUE: Helical acquisition of image data was performed for the abdomen and pelvis without intravenous contrast. Dose: 512.57 mGy*cm COMPARISON: CT abdomen pelvis with contrast 05/11/[address] abdomen pelvis 04/23/2024.; CT abdomen pelvis 05/05/2020 FINDINGS: FELT CHECKER: Pigtail catheter projecting over the left hemipelvis [...] Primary Interpreting Staff: JESSENIA GOODMAN MD, RADIOLOGIST (Application Consultant) Primary Interpreting Resident: YOHANNES MELO DO, DISTRICT ADMINISTRATOR /JESSENIA LOUIE [facility] May 11, 2024 12:39 PM IR FISTULOGRAM / SINOGRAM (P): FLACA WEAVER [id number] -1950 M Exm Date: MAY 11, 2024@12:39 Req Phys: PALMIRA POWELL Loc: [facility] C/R FOLLOW-UP CLINIC (Req' Img Loc: INTERVENTIONAL RADIOLOGY Service: [place] [address] (Case [id number] COMPLETE) IR INJECTION FOR SINOGRAM DIAGNOS(ANI Detailed) CPT:86946 Contrast Media : Non-ionic Iodinated Reason for Study: s/p drain placement for diverticular abscess- assess for drain (Case [id number] COMPLETE) IR FISTULOGRAM OR SINOGRAM (ANI Detailed) CPT:06533 Contrast Media : unspecified contrast media (Case [id number] COMPLETE) IR DRAINAGE CATHETER SUPPLY (ANI Detailed) CPT:C1729 Clinical History: [place] IS NOT under investigation for COVID-19 or is COVID-19 negative s/p drain placement for diverticular abscess- assess for drain removal Contact number for responsible provider who can be reached for any questions or notifications of critical findings: [phone] Palmira Powell MD LAST CREATININE 0.7 (05/04/24) Report Status: Verified Date Reported: MAY 11, 2024 Date Verified: MAY 11, 2024 Application Consultant E-Sig:/ES/AMINTA ESCALONA MD Report: PROCEDURES Abdominal drain [...] Interpreting Staff: AMINTA ESCALONA MD, INTERVENTIONAL RADIOLOGIST (Application Consultant) /AMINTA VELAZCO [facility] May 11, 2024 11:[address] (AP) ABDOMEN/PELVIS (P): FLACA WEAVER [id number] -1950 M Exm Date: MAY 11, 2024@11:40 Req Phys: PALMIRA POWELL Loc: [facility] C/R FOLLOW-UP CLINIC (Req' Img Loc: CT IMAGING Service: [place] [address] (Case [id number] COMPLETE) CT (AP) ABDOMEN/PELVIS W CONTRAST(CT Detailed) CPT:82110 Contrast Media : Non-ionic Iodinated Reason for [...] any questions or notifications of critical findings: [phone] Palmira Powell MD LAST 3: Collection DT [...] PLASMA .CREAT EGFR(CKD-E >90 Ref: >=60 Allergies: ([place] only) TERAZOSIN (Mar 13, 2015) Report Status: Verified Date Reported: MAY 11, 2024 Date Verified: MAY 11, 2024 Application Consultant E-Sig:/ES/LISA PENDLETON MD Report: CT abdomen and [...] Primary Interpreting Staff: LISA PENDLETON MD, RADIOLOGIST (Application Consultant) /JRT LISA PENDLETON [facility] Apr 24, 2024 02:13 PM ABSCESS DRAIN PLACEMENT PERITONEAL (P): MEGFLACA YAMIL [id number] -1950 M Exm Date: APR 24, 2024@14:13 Req Phys: TAURUS WOOD Loc: 3K04-24-2024@16:07 Img Loc: INTERVENTIONAL RADIOLOGY Service: [place] [address] (Case [id number] COMPLETE) IR PERITONEAL/RETROPERITONEAL PER(ANI Detailed) CPT:30167 Reason for Study: diverticular abscess Clinical History: [place] IS NOT under investigation for COVID-19 or is COVID-19 negative 73yo M with hx of recurrent diverticulitis, transferred from [facility] 04/[address] 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 Found to have 2nd degree heart block, planning pacemaker placement Contact number for responsible provider who can be reached for any questions or notifications of critical findings: [phone] If ordering provider is a trainee, enter the name and contact information of the responsible staff physician. Palmira Powell MD LAST CREATININE 0.7 (04/23/24) Report Status: Verified Date Reported: APR 24, 2024 Date Verified: APR 24, 2024 Application Consultant E-Sig:/ES/SADIA DEE MD Report: PROCEDURES: Placement of [...] Primary Interpreting Staff: SADIA DEE MD, RADIOLOGIST (Application Consultant) Primary Interpreting Resident: JEFFREY FLOWER MD, DISTRICT ADMINISTRATOR /SADIA SNYDER [facility] Apr 24, 2024 02:[address] NEEDLE PLACEMENT (P): FLACA WEAVER [id number] -1950 M Exm Date: APR 24, 2024@14:11 Req Phys: TAURUS WOOD Loc: 3KS04-24-2024@16:07 Img Loc: CT IMAGING Service: [place] [address] (Case [id number] COMPLETE) CT SCAN FOR NEEDLE PLACEMENT (CT Detailed) CPT:34495 Reason for Study: diverticular abscess Clinical History: Report Status: Verified Date Reported: APR 24, 2024 Date Verified: APR 24, 2024 Application Consultant E-Sig:/ES/SADIA DEE MD Report: PROCEDURES: Placement of [...] Primary Interpreting Staff: SADIA DEE MD, RADIOLOGIST (Application Consultant) Primary Interpreting Resident: JEFFREY FLOWER MD, DISTRICT ADMINISTRATOR /SADIA SNYDER [facility] Apr 23, 2024 06:[address] ABDOMEN/PELVIS: FLACA WEAVER [id number] -1950 M Exm Date: APR 23, 2024@06:36 Req Phys: MCKAY VICTOR Pat Loc: 3KS/04-24-2024@10:25 Img Loc: OUTSOURCE CT Service: Unknown (Case [id number] COMPLETE) NON [facility] CT ABDOMEN/PELVIS (CT Detailed) CPT:79441 Reason for Study: OUTSIDE STUDY Clinical History: [...] PORT: Reporting Lab: [facility] [CLIA# [id number]] [place] [address] Accession [UID]: [id number] [[id number]] Received: Apr 21, 2024@08:16 Collection sample: URINE Collection date: Apr 21, 2024 07:28 Provider: ANANDA HUGGINS Comment on specimen: RECEIVED IN STERILE CUP Test(s) ordered: CULTURE & SUSCEPTIBILITY...... completed: Apr 22, 2024 * BACTERIOLOGY FINAL REPORT => Apr 22, 2024 08:38 TECH CODE: [id number] CULTURE RESULTS: NO GROWTH 24 HOURS Bacteriology Remark(s): THIS REPORT IS FINAL =--=--=--=--=--=--=--=--=--=--=--=- -=--=--=--=--=--=--=--=--=--=--=--= --=--=-- Performing Laboratory: Bacteriology Report Performed By: [facility] [CLIA# [id number]] [place] [address] [facility] Encounter Notes: All associated encounter notes [...] Acknowledged By: 05/03/2024 16:02 /es/ GUERITA AGUILA, ROSALIND REGISTERED NURSE 05/03/2024 13:37 /es/ BRITTNEY HARRISON ADVANCED MACHINE ADJUSTER LEADER CASE TRIM for RICKY MIRANDA --- Original Document --- 05/02/24 [facility]INIC NURSING NOTE: Vital Signs: Temperature: 97.7 F [36.5 C] (05/02/2024 09:55) Blood Pressure: 201/88 (05/02/2024) Heart Rate: 65 (05/02/2024 09:55) Respiratory Rate: 14 (04/24/2024 16:00) Pain: 4 (05/02/2024 09:55) Blood pressure re-check: Nurse to also document readings on cover [...] DAMION MALDONADO LPN LPN Signed: 05/02/2024 11:18 JATINDER CABRERA [facility] May 02, 2024 11:15 AM COLON & RECTAL ELISA [facility] NURSING NOTE: LOCAL TITLE: [facility]INIC NURSING [...] Pain: 4 (05/02/2024 09:55) Blood pressure re-check: Nurse to also document readings on cover [...] * AWAITING SIGNATURE * RICKY MIRANDA [facility] May 02, 2024 10:00 AM COLON & [...] consultation on day of clinic visit: 25min /es/ PALMIRA POWELL MD STAFF SURGEON, COLON/RECTAL Signed: 05/03/2024 17:23 PALMIRA POWELL [facility]
--- OUTSIDE RECORDS SUMMARY | 2024-07-16 07:13 | XMS_ITS | Encounter Summary ---
Author Name [facility] [facility] [place] Address [address] [place] [address] Care Team Providers Care Tile Setter Apprentice Name Role Phone JATINDER BENITEZ Primary [...] PART A Sep 29, 2016 PART A [id number] [phone] JUDY WEAVER PATIENT Selected Encounter This section [...] 2024 10:00 AM AMBULATORY - SURGERY [facility] May 04, 2024 09:00 AM AM[facility]ORY - NONE [place] May 07, 2024 08:45 AM [facility] May 08, 2024 02:00 PM AMBUL[facility]ORY - NONE [place] May 09, 2024 07:30 AM AMBULATORY - SURGERY [facility] May 11, 2024 01:00 PM AMB[facility]ORY - NONE [facility] May 11, 2024 03:30 PM [facility]ORY - NONE [place] May 15, 2024 08:30 AM [facility] May 16, 2024 07:45 AM AMBULATORY - SURGERY [facility] May 22, 2024 07:30 AM [facility] NONE [place] May 22, 2024 05:30 [facility] May 25, 2024 08:22 [facility] May 25, 2024 09:00 AM [facility] NONE [place] [facility] May 28, 2024 08:15 AM [facility] Jun 04, 2024 11:30 AM AM[facility]ORY - NONE [place] [facility] Jun 08, 2024 11:00 AM AMBULATORY - SURGERY [facility] Jun 08, 2024 12:45 PM [facility] Jun 08, 2024 01:15 PM AMBULATORY - MEDICINE [facility] Jun 08, 2024 01:45 PM AMBULATORY - SURGERY [facility] Jun 21, 2024 04:48 PM AMBULATORY - MEDICINE [facility] Active, [...] The data comes [facility] [place] [facility]. Test Date/Time Test Type Test Details Facility [...] ~JUAN drain culture/gram stain [facility] May 28, 2024 12:00 AM Laboratory - Blood Bank Order TYPE & SCREEN - LAB BLOOD SP [facility] Jun 08, 2024 09:57 AM Laboratory - Chemistry Order URINALYSIS URINE WC ONCE [facility] Jun 12, 2024 12:00 AM Laboratory - Chemistry Order BNP PLASMA SP ONCE [facility] Lab Results: +/- 30 [...] Range Comment May 21, 2024 06:59 AM [facility] BASIC METABOLIC PANEL+MG Specimen Type: PLASMA No comment entered. Ordering Provider: GOLDIE BENITEZ Report Released Date/Time: May 15, 2024 08:34 AM Reporting Lab: [facility] [address] Performing Lab: [facility] [address] CREATININE 0.9 mg/dL 0.7-1.2 UREA NITROGEN 18 mg/dL 8-26 GLUCOSE 126 mg/dL H 70-100 SODIUM 138 mmol/L 136-145 POTASSIUM 4.0 mmol/L 3.5-5.1 CHLORIDE 105 mmol/L 98-107 CO2 24 mmol/L 22-29 CALCIUM 9.8 mg/dL 8.4-10.2 MAGNESIUM 2.0 mg/dL 1.6-2.6 ANION GAP 9 mmol/L 5-15 .CREAT EGFR(CKD-EPI) >90 >60 May 04, 2024 08:36 AM [facility] BASIC METABOLIC PANEL+MG Specimen Type: PLASMA No comment entered. Ordering Provider: GOLDIE BENITEZ Report Released Date/Time: May 03, 2024 12:52 PM Reporting Lab: [facility] [address] Performing Lab: [facility] [address] CREATININE 0.7 mg/dL 0.7-1.2 UREA NITROGEN 13 mg/dL 8-26 GLUCOSE 91 mg/dL 70-100 SODIUM 141 mmol/L 136-145 POTASSIUM 3.6 mmol/L 3.5-5.1 CHLORIDE 109 mmol/L H 98-107 CO2 25 mmol/L 22-29 CALCIUM 8.9 mg/dL 8.4-10.2 MAGNESIUM 2.0 mg/dL 1.6-2.6 ANION GAP 7 mmol/L 5-15 .CREAT EGFR(CKD-EPI) >90 >60 Apr 26, 2024 07:16 AM [facility] BASIC METABOLIC PANEL+MG Specimen Type: PLASMA No comment entered. Ordering Provider: JONO RANDOLPH Report Released Date/Time: Apr 25, 2024 02:50 PM Reporting Lab: [facility] [phone] Performing Lab: [facility] [address] CREATININE 0.7 mg/dL 0.7-1.2 UREA NITROGEN 15 [...] 05:04 PM Reporting Lab: [facility] [address] Performing Lab: [facility] [address] CREATININE 0.7 mg/dL 0.7-1.2 UREA NITROGEN 15 [...] 12:37 PM Reporting Lab: [facility] [address] Performing Lab: [facility] [address] CREATININE 0.7 mg/dL 0.7-1.2 UREA NITROGEN 14 [...] 12:37 PM Reporting Lab: [facility] [address] Performing Lab: [facility] [address] CREATININE 0.7 mg/dL 0.7-1.2 UREA NITROGEN 16 [...] Critical Value Reported To: Cait Zamorano RN 8-27-24@[address] [place] [address]. Critical value report confirmed. Ordering Provider: AARON VICTOR Report Released Date/Time: Apr 23, 2024 05:30 PM Reporting Lab: [facility] [address] Performing Lab: [facility] [address] CREATININE 0.7 mg/dL 0.7-1.2 UREA NITROGEN 16 [...] 05:30 PM Reporting Lab: [facility] [address] Performing Lab: [facility] [address] WBC 10.49 10*3/uL 4.0-11.0 RBC 3.83 10*6/uL [...] 12:05 PM Reporting Lab: [facility] [address] Performing Lab: [facility] [address] LACTIC ACID 1.5 mmol/L 0.5-2.2 Apr 23, 2024 01:20 PM [facility] ACT PART THROMBO TIME Specimen Type: PLASMA No comment entered. Ordering Provider: AARON VICTOR Report Released Date/Time: Apr 23, 2024 12:05 PM Reporting Lab: [facility] [address] Performing Lab: [facility] [address] APTT 29.3 s 25.1-36.5 Apr 23, 2024 01:20 PM [facility] PROTHROMBIN TIME/INR Specimen Type: PLASMA No comment entered. Ordering Provider: AARON VICTOR Report Released Date/Time: Apr 23, 2024 12:05 PM Reporting Lab: [facility] [address] Performing Lab: [facility] [address] .INR 1.2 H 0.8-1.1 .PT 14.5 s H 9.4-12.5 Apr 23, 2024 01:20 PM [facility] COMPREHENSIVE METABOLIC PANEL+MG Specimen Type: PLASMA No comment entered. Ordering Provider: AARON VICTOR Report Released Date/Time: Apr 23, 2024 12:05 PM Reporting Lab: [facility] [address] Performing Lab: [facility] [address] CREATININE 0.7 mg/dL 0.7-1.2 UREA NITROGEN 19 [...] 12:05 PM Reporting Lab: [facility] [address] Performing Lab: [facility] [address] WBC 12.50 10*3/uL H 4.0-11.0 RBC 4.07 [...] 07:37 AM Reporting Lab: [facility] [address] Performing Lab: [facility] [address] URINE COLOR COLORLESS SPECIFIC GRAVITY 1.009 1.003-1.03 [...] Provider Source Mar 23, 2016 CLINICAL WARNING [facility] Radiology Reports: +/- 30 [...] IR FISTULOGRAM OR SINOGRAM : FLACA WEAVER [id number] -1950 M Ex Date: MAY 25, 2024@09:00 Req Phys: AMINTA ESCALONA Loc: [facility] XRAY INTERVENTIONAL RADIO Img Loc: INTERVENTIONAL RADIOLOGY Service: [place] [address] (Case [id number] COMPLETE) IR FISTULOGRAM OR SINOGRAM (ANI Detailed) CPT:85376 Contrast Media : unspecified contrast media Reason for Study: s/p drain placement for diverticular abscess- assess for drain Clinical History: [place] IS NOT under investigation for COVID-19 or [...] 25, 2024 Date Verified: MAY 25, 2024 Sonar Technician E-Sig:/ES/DAVID BURNS MD Report: PROCEDURES 05/25/2024 [...] Primary Interpreting Staff: DAVID BURNS MD, RADIOLOGIST (Sonar Technician) /[facility] DAVID BURNS [facility] May 25, 2024 08:[address] (AP) ABDOMEN/PELVIS (P): FLACA WEAVER [id number] -1950 M Exm Date: MAY 25, 2024@08:23 Req Phys: DAVID BURNS Loc: [facility] XRAY INTERVENTIONAL RADIO Img Loc: CT IMAGING Service: [place] [address] (Case [id number] COMPLETE) CT (AP) ABDOMEN/PELVIS W/O CONTRA(CT Detailed) CPT:17026 Reason for Study: assess abscess and possible drain removal Clinical History: no contrast per venancio Per Joint Commission Standards, by signing this diagnostic imaging request the ordering provider confirms they have considered patients age and recent imaging history. Defer to radiologist for final CT protocol. Contact number for responsible provider who can be reached for any questions or notifications of critical findings: [phone] venancio LAST 3: Collection DT Specimen Test [...] PLASMA .CREAT EGFR(CKD-E >90 Ref: >=60 Allergies: ([place] only) TERAZOSIN (Mar 13, 2015) Report Status: Verified Date Reported: MAY 25, 2024 Date Verified: MAY 25, 2024 Sonar Technician E-Sig:/ES/JESSENIA GOODMAN MD Report: EXAM: CT [...] pelvis 04/23/2024.; CT abdomen pelvis 05/05/2020 FINDINGS: POWERHOUSE ATTENDANT: Pigtail catheter projecting over the left hemipelvis LOWER CHEST: Small pericardial effusion. Minimal bibasilar atelectasis. No consolidation. No pleural effusion. No pneumothorax. Distal esophageal wall thickening and a small esophageal hiatal hernia. Hepatobiliary: Stable presumed hepatic cyst at the hepatic dome (/28) and subcentimeter hypoattenuating focus within hepatic segment [...] right and 2.1 cm on the left. IJessenia, have reviewed the images and report. Primary Interpreting Staff: JESSENIA GOODMAN MD, RADIOLOGIST (Sonar Technician) Primary Interpreting Resident: YOHANNES MELO DO, ASSISTANT MANAGER QUALITY MANAGEMENT /JESSENIA LOUIE [facility] May 11, 2024 12:39 PM IR FISTULOGRAM / SINOGRAM (P): FLACA WEAVER [id number] -1950 M Exm Date: MAY 11, 2024@12:39 Req Phys: PALMIRA POWELL Loc: [facility] (Req' Img Loc: INTERVENTIONAL RADIOLOGY Service: [place] [address] (Case [id number] COMPLETE) IR INJECTION FOR SINOGRAM DIAGNOS(ANI Detailed) CPT:35215 Contrast Media : Non-ionic Iodinated Reason for Study: s/p drain placement for diverticular abscess- assess for drain (Case [id number] COMPLETE) IR FISTULOGRAM OR SINOGRAM (ANI Detailed) CPT:11176 Contrast Media : unspecified contrast media (Case [id number] COMPLETE) IR DRAINAGE CATHETER SUPPLY (ANI Detailed) CPT:C1729 Clinical History: [place] IS NOT under investigation for COVID-19 or is COVID-19 negative s/p drain placement for diverticular abscess- assess for drain removal Contact number for responsible provider who can be reached for any questions or notifications of critical findings: [phone] Palmira Powell MD LAST CREATININE 0.7 (05/04/24) Report Status: Verified Date Reported: MAY 11, 2024 Date Verified: MAY 11, 2024 Sonar Technician E-Sig:/ES/AMINTA ESCALONA MD Report: PROCEDURES Abdominal [...] Interpreting Staff: AMINTA ESCALONA MD, INTERVENTIONAL RADIOLOGIST (Sonar Technician) /AMINTA VELAZCO [facility] May 11, 2024 11:[address] (AP) ABDOMEN/PELVIS (P): FLACA WEAVER YAMIL [id number] -1950 M Exm Date: MAY 11, 2024@11:40 Req Phys: PALMIRA POWELL Loc: [facility] (Req' Img Loc: CT IMAGING Service: [place] [address] (Case [id number] COMPLETE) CT (AP) ABDOMEN/PELVIS W CONTRAST(CT Detailed) CPT:58164 Contrast Media : Non-ionic Iodinated Reason for [...] any questions or notifications of critical findings: [phone] Palmira Powell MD LAST 3: Collection DT [...] PLASMA .CREAT EGFR(CKD-E >90 Ref: >=60 Allergies: ([place] only) TERAZOSIN (Mar 13, 2015) Report Status: Verified Date Reported: MAY 11, 2024 Date Verified: MAY 11, 2024 Sonar Technician E-Sig:/ES/LISA PENDLETON MD Report: CT abdomen [...] Primary Interpreting Staff: LISA PENDLETON MD, RADIOLOGIST (Sonar Technician) /JRT LISA PENDLETON [facility] Apr 24, 2024 02:13 PM ABSCESS DRAIN PLACEMENT PERITONEAL (P): FLACA WEAVER [id number] -1950 M Exm Date: APR 24, 2024@14:13 Req Phys: TAURUS WOOD Loc: 3KS/04-24-2024@16:07 Img Loc: INTERVENTIONAL RADIOLOGY Service: PRIMARY CARE - [place] [address] (Case [id number] COMPLETE) IR PERITONEAL/RETROPERITONEAL PER(ANI Detailed) CPT:51075 Reason for Study: diverticular abscess Clinical History: [place] IS NOT under investigation for COVID-19 or is COVID-19 negative 73yo M with hx of recurrent diverticulitis, transferred from O[facility] 04/[address] 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 Palmira Powell MD LAST CREATININE 0.7 (04/23/24) Report Status: Verified Date Reported: APR 24, 2024 Date Verified: APR 24, 2024 Sonar Technician E-Sig:/ES/SADIA DEE MD Report: PROCEDURES: Placement [...] anesthesia. Using real-time CT fluoroscopy, a 5 Macanese Yueh catheter was advanced into the collection in the left lower quadrant. A wire was coiled in the collection. The tract into the collection was dilated to accommodate the 12 Macanese locking pigtail drainage catheter. The catheter was secured to the skin with monofilament suture and connected to JUAN bulb suction. Impression: Successful placement of a 12 Macanese locking pigtail drainage catheter in the left lower quadrant abscess. This catheter is connected to JUAN bulb suction with flushes, as ordered. I, SADIA DEE, have reviewed the images and report. Primary Interpreting Staff: SADIA DEE MD, RADIOLOGIST (Sonar Technician) Primary Interpreting Resident: JEFFREY FLOWER MD, ASSISTANT MANAGER QUALITY MANAGEMENT /SADIA SNYDER [facility] Apr 24, 2024 02:[address] NEEDLE PLACEMENT (P): FLACA WEAVER [id number] -1950 M Exm Date: APR 24, 2024@14:11 Req Phys: TAURUS WOODE Amanda Loc: 3K04-24-2024@16:07 Img Loc: CT IMAGING Service: PRIMARY CARE [place] [address] (Case [id number] COMPLETE) CT SCAN FOR NEEDLE PLACEMENT (CT Detailed) CPT:35917 Reason for Study: diverticular abscess Clinical History: Report Status: Verified Date Reported: APR 24, 2024 Date Verified: APR 24, 2024 Sonar Technician E-Sig:/ES/SADIA DEE MD Report: PROCEDURES: Placement [...] anesthesia. Using real-time CT fluoroscopy, a 5 Macanese Yueh catheter was advanced into the collection in the left lower quadrant. A wire was coiled in the collection. The tract into the collection was dilated to accommodate the 12 Macanese locking pigtail drainage catheter. The catheter was secured to the skin with monofilament suture and connected to JUAN bulb suction. Impression: Successful placement of a 12 Macanese locking pigtail drainage catheter in the left lower quadrant abscess. This catheter is connected to JUAN bulb suction with flushes, as ordered. I, SADIA DEE, have reviewed the images and report. Primary Interpreting Staff: SADIA DEE MD, RADIOLOGIST (Sonar Technician) Primary Interpreting Resident: JEFFREY FLOWER MD, ASSISTANT MANAGER QUALITY MANAGEMENT /SADIA SNYDER [facility] Apr 23, 2024 06:[address] [address] ABDOMEN/PELVIS: FLACA WEAVER [id number] -1950 M Exm Date: APR 23, 2024@06:36 Req Phys: MCKAY VICTOR Loc: 04-24-2024@10:25 [facility] Loc: OUTSOURCE CT Service: Unknown (Case [id number] COMPLETE) NON [place] CT ABDOMEN/PELVIS (CT Detailed) CPT:72223 Reason for Study: OUTSIDE STUDY Clinical History: [...] PORT: Reporting Lab: [facility] [CLIA# [id number]] [place] [address] Accession [UID]: [id number] [[id number]] Received: Apr 21, 2024@08:16 Collection sample: URINE Collection date: Apr 21, 2024 07:28 Provider: ANANDA HUGGINS Comment on specimen: RECEIVED IN STERILE CUP Test(s) ordered: CULTURE & SUSCEPTIBILITY...... completed: Apr 22, 2024 * BACTERIOLOGY FINAL REPORT => Apr 22, 2024 08:38 TECH CODE: [id number] CULTURE RESULTS: NO GROWTH 24 HOURS Bacteriology Remark(s): THIS REPORT IS FINAL =--=--=--=--=--=--=--=--=--=--=--=- -=--=--=--=--=--=--=--=--=--=--=--= --=--=-- Performing Laboratory: Bacteriology Report Performed By: [facility] [CLIA# [id number]] [place] [address] [facility] Encounter Notes: All associated [...] COMPLETED see [facility]. /es/ TALIB MACKEY Roll Builder Signed: 05/01/2024 19:41 TALIB MACKEY [facility]
--- OUTSIDE RECORDS SUMMARY | 2024-07-16 07:14 | XMS_ITS | Encounter Summary ---
Author Name [facility] [place] [facility] [place] [place] Address [address] [place] [address] Care Team Providers Care Parachute Accessories Attacher Name Role Phone JATINDER CABRERA Primary Care [...] PART A Sep 29, 2016 PART A [id number] [phone] JUDY WEAVER PATIENT Selected Encounter This section includes the information on record at [place] for the Encounter. Date/Time Encounter Type Encounter Description Reason Provider Source Jul 13, 2024 08:15 AM Outpatient Encounter ADMIN PAT ACTIVTIES (MASNONCT) SHAHNAZ ALAS Alex Encounter Template Text not used by [place] Plan of Treatment: Future Appointments (+ 6 [...] of theEncounter. The data comes from all [facility] facilities. Test Date/Time Test Type Test Details Facility Name Jun 08, 2024 09:57 AM Laboratory - Chemi stry Order URINALYSIS URINE WC ONCE [facility] Jun 12, 2024 12:00 AM Laboratory - Chemi stry Order BNP PLASMA SP ONCE [facility] Jun 21, 2024 05:45 PM Laboratory - Blood Bank Order TYPE & SCREEN - LAB BLOOD WC [facility] Jul 03, 2024 12:00 AM Laboratory - Blood Bank Order TYPE & SCREEN - LAB BLOOD WC [facility] Jul 16, 2024 12:00 AM Laboratory - Chemi stry Order CBC BLOOD SP ONCE [facility] Jul 17, 2024 12:00 AM Laboratory - Chemi stry Order BASIC METABOLIC PANEL+MG PLASMA SP ONCE [facility] Lab Results: +/- 30 days [...] Range Comment Jul 10, 2024 07:16 AM [facility] PHOSPHORUS Specimen Type: PLASMA No comment entered. Ordering Provider: JUANCARLOS ECHOLS S Report Released Date/Time: Jul 09, 2024 12:23 PM Reporting Lab: [facility] [address] Performing Lab: [facility] [address] PHOSPHORUS 3.0 mg/dL 2.3-4.3 Jul 10, 2024 07:16 AM [facility] BASIC METABOLIC PANEL+MG Specimen Type: PLASMA No comment entered. Ordering Provider: JUANCARLOS ECHOLS S Report Released Date/Time: Jul 09, 2024 12:23 PM Reporting Lab: [facility] [address] Performing Lab: [facility] [address] CREATININE 0.7 mg/dL 0.7-1.2 UREA NITROGEN 27 mg/dL H 8-26 GLUCOSE 104 mg/dL H 70-100 SODIUM 133 mmol/L L 136-145 POTASSIUM 4.3 mmol/L 3.5-5.1 CHLORIDE 102 mmol/L 98-107 CO2 19 mmol/L L 22-29 CALCIUM 10.1 mg/dL 8.4-10.2 MAGNESIUM 1.9 mg/dL 1.6-2.6 ANION GAP 12 mmol/L 5-15 .CREAT EGFR(CKD-EPI) >90 >60 Jul 10, 2024 07:15 AM [facility] CBC Specimen Type: BLOOD No comment entered. Ordering Provider: JUANCARLOS ECHOLS Report Released Date/Time: Jul 09, 2024 12:23 PM Reporting Lab: [facility] [address] Performing Lab: [facility] [address] WBC 18.8 H 4.0-11.0 RBC 5.08 4.60-6.20 HGB 15.9 g/dL 13.5-17.9 HCT 46.8 41.0-54.0 MCV 92.1 fL 80.0-100.0 MCH 31.3 pg 27.0-33.0 MCHC 34.0 g/dL 32.0-37.5 PLT 479 H 150-400 MPV 10.2 fL 9.1-13.0 RDW 13.7 11.5-14.5 Jul 09, 2024 07:08 AM [facility] CBC Specimen Type: BLOOD No comment entered. Ordering Provider: QUYNH WEISS Report Released Date/Time: Jul 08, 2024 06:18 PM Reporting Lab: [facility] [address] Performing Lab: [facility] [address] WBC 15.3 H 4.0-11.0 RBC 4.91 4.60-6.20 HGB 15.1 g/dL 13.5-17.9 HCT 45.7 41.0-54.0 MCV 93.1 fL 80.0-100.0 MCH 30.8 pg 27.0-33.0 MCHC 33.0 g/dL 32.0-37.5 PLT 443 H 150-400 MPV 10.0 fL 9.1-13.0 RDW 13.5 11.5-14.5 Jul 08, 2024 10:50 AM [facility] URINALYSIS Specimen Type: URINE No comment entered. Ordering Provider: KATELYNN PERSON Report Released Date/Time: Jul 08, 2024 08:41 AM Reporting Lab: [facility] [address] Performing Lab: [facility] [address] URINE COLOR YELLOW SPECIFIC GRAVITY >1.050 H [...] NEGATIVE NEGATIVE Jul 08, 2024 09:54 AM [facility] CBC Specimen Type: BLOOD Comment: Specimen received in Lab at: [id number] Ordering Provider: JUANCARLOS ECHOLS Report Released Date/Time: Jul 07, 2024 04:49 PM Reporting Lab: [facility] [address] Performing Lab: [facility] [address] WBC 17.5 H 4.0-11.0 RBC 4.88 4.60-6.20 HGB 14.9 g/dL 13.5-17.9 HCT 45.7 41.0-54.0 MCV 93.6 fL 80.0-100.0 MCH 30.5 pg 27.0-33.0 MCHC 32.6 g/dL 32.0-37.5 PLT 472 H 150-400 MPV 10.2 fL 9.1-13.0 RDW 13.7 11.5-14.5 Jul 08, 2024 09:54 AM [facility] PHOSPHORUS Specimen Type: PLASMA Comment: Specimen received in Lab at: 0952 Ordering Provider: JUANCARLOS ECHOLS Report Released Date/Time: Jul 07, 2024 04:49 PM Reporting Lab: [facility] [address] Performing Lab: [facility] [address] PHOSPHORUS 2.6 mg/dL 2.3-4.3 Jul 08, 2024 09:54 AM [facility] BASIC METABOLIC PANEL+MG Specimen Type: PLASMA Comment: Specimen received in Lab at: 0952 Ordering Provider: JUANCARLOS ECHOLS Report Released Date/Time: Jul 07, 2024 04:49 PM Reporting Lab: [facility] [address] Performing Lab: [facility] [address] CREATININE 0.9 mg/dL 0.7-1.2 UREA NITROGEN 26 mg/dL 8-26 GLUCOSE 128 mg/dL H 70-100 SODIUM 134 mmol/L L 136-145 POTASSIUM 3.4 mmol/L L 3.5-5.1 CHLORIDE 100 mmol/L 98-107 CO2 24 mmol/L 22-29 CALCIUM 9.8 mg/dL 8.4-10.2 MAGNESIUM 1.8 mg/dL 1.6-2.6 ANION GAP 10 mmol/L 5-15 .CREAT EGFR(CKD-EPI) >90 >60 Jul 07, 2024 02:00 PM [facility] C DIFF PANEL Specimen Type: FECES No comment entered. Ordering Provider: JEVON ZAZUETA Report Released Date/Time: Jul 07, 2024 12:26 PM Reporting Lab: [facility] [address] Performing Lab: [facility] [address] C DIFF TOX B GENE PCR NEGATIVE Negative Jul 07, 2024 07:41 AM [facility] PHOSPHORUS Specimen Type: PLASMA No comment entered. Ordering Provider: JEVON ZAZUETA Report Released Date/Time: Jul 06, 2024 03:44 PM Reporting Lab: [facility] [address] Performing Lab: [facility] [address] PHOSPHORUS 3.1 mg/dL 2.3-4.3 Jul 07, 2024 07:41 AM [facility] BASIC METABOLIC PANEL+MG Specimen Type: PLASMA No comment entered. Ordering Provider: JEVON ZAZUETA Report Released Date/Time: Jul 06, 2024 03:44 PM Reporting Lab: [facility] [address] Performing Lab: [facility] [address] CREATININE 0.9 mg/dL 0.7-1.2 UREA NITROGEN 20 mg/dL 8-26 GLUCOSE 157 mg/dL H 70-100 SODIUM 136 mmol/L 136-145 POTASSIUM 3.7 mmol/L 3.5-5.1 CHLORIDE 102 mmol/L 98-107 CO2 21 mmol/L L 22-29 CALCIUM 9.8 mg/dL 8.4-10.2 MAGNESIUM 1.9 mg/dL 1.6-2.6 ANION GAP 13 mmol/L 5-15 .CREAT EGFR(CKD-EPI) >90 >60 Jul 07, 2024 07:40 AM [facility] CBC Specimen Type: BLOOD No comment entered. Ordering Provider: JEVON ZAZUETA Report Released Date/Time: Jul 06, 2024 03:44 PM Reporting Lab: [facility] [address] Performing Lab: [facility] [address] WBC 21.2 H 4.0-11.0 RBC 5.09 4.60-6.20 HGB 15.9 g/dL 13.5-17.9 HCT 48.3 41.0-54.0 MCV 94.9 fL 80.0-100.0 MCH 31.2 pg 27.0-33.0 MCHC 32.9 g/dL 32.0-37.5 PLT 500 H 150-400 MPV 10.3 fL 9.1-13.0 RDW 13.6 11.5-14.5 Jul 06, 2024 07:21 AM [facility] CBC Specimen Type: BLOOD No comment entered. Ordering Provider: JEVON ZAZUETA Report Released Date/Time: Jul 05, 2024 01:22 PM Reporting Lab: [facility] [address] Performing Lab: [facility] [address] WBC 18.0 H 4.0-11.0 RBC 4.83 4.60-6.20 HGB 14.6 g/dL 13.5-17.9 HCT 45.5 41.0-54.0 MCV 94.2 fL 80.0-100.0 MCH 30.2 pg 27.0-33.0 MCHC 32.1 g/dL 32.0-37.5 PLT 368 150-400 MPV 10.4 fL 9.1-13.0 RDW 13.6 11.5-14.5 Jul 06, 2024 07:21 AM [facility] PHOSPHORUS Specimen Type: PLASMA No comment entered. Ordering Provider: JEVON ZAZUETA Report Released Date/Time: Jul 05, 2024 01:22 PM Reporting Lab: [facility] [address] Performing Lab: [facility] [address] PHOSPHORUS 3.6 mg/dL 2.3-4.3 Jul 06, 2024 07:21 AM [facility] BASIC METABOLIC PANEL+MG Specimen Type: PLASMA No comment entered. Ordering Provider: JEVON ZAZUETA Report Released Date/Time: Jul 05, 2024 01:22 PM Reporting Lab: [facility] [address] Performing Lab: [facility] [address] CREATININE 0.7 mg/dL 0.7-1.2 UREA NITROGEN 12 mg/dL 8-26 GLUCOSE 108 mg/dL H 70-100 SODIUM 138 mmol/L 136-145 POTASSIUM 3.4 mmol/L L 3.5-5.1 CHLORIDE 104 mmol/L 98-107 CO2 20 mmol/L L 22-29 CALCIUM 9.3 mg/dL 8.4-10.2 MAGNESIUM 1.9 mg/dL 1.6-2.6 ANION GAP 14 mmol/L 5-15 .CREAT EGFR(CKD-EPI) >90 >60 Jul 05, 2024 07:17 AM [facility] MAGNESIUM Specimen Type: PLASMA No comment entered. Ordering Provider: JUANCARLOS ECHOLS S Report Released Date/Time: Jul 04, 2024 09:39 AM Reporting Lab: [facility] [address] Performing Lab: [facility] [address] MAGNESIUM 2.0 mg/dL 1.6-2.6 Jul 05, 2024 07:17 AM [facility] PHOSPHORUS Specimen Type: PLASMA No comment entered. Ordering Provider: JUANCARLOS ECHOLS S Report Released Date/Time: Jul 04, 2024 09:39 AM Reporting Lab: [facility] [address] Performing Lab: [facility] [address] PHOSPHORUS 2.0 mg/dL L 2.3-4.3 Jul 05, 2024 07:17 AM [facility] BASIC METABOLIC PANEL+MG Specimen Type: PLASMA No comment entered. Ordering Provider: JUANCARLOS ECHOLS S Report Released Date/Time: Jul 04, 2024 09:39 AM Reporting Lab: [facility] [address] Performing Lab: [facility] [address] CREATININE 0.7 mg/dL 0.7-1.2 UREA NITROGEN 12 mg/dL 8-26 GLUCOSE 84 mg/dL 70-100 SODIUM 135 mmol/L L 136-145 POTASSIUM 3.8 mmol/L 3.5-5.1 CHLORIDE 104 mmol/L 98-107 CO2 24 mmol/L 22-29 CALCIUM 9.3 mg/dL 8.4-10.2 MAGNESIUM 2.0 mg/dL 1.6-2.6 ANION GAP 7 mmol/L 5-15 .CREAT EGFR(CKD-EPI) >90 >60 Jul 05, 2024 07:16 AM [facility] CBC Specimen Type: BLOOD No comment entered. Ordering Provider: JUANCARLOS ECHOLS S Report Released Date/Time: Jul 04, 2024 09:39 AM Reporting Lab: [facility] [address] Performing Lab: [facility] [address] WBC 18.3 H 4.0-11.0 RBC 4.49 L 4.60-6.20 HGB 14.1 g/dL 13.5-17.9 HCT 43.4 41.0-54.0 MCV 96.7 fL 80.0-100.0 MCH 31.4 pg 27.0-33.0 MCHC 32.5 g/dL 32.0-37.5 PLT 317 150-400 MPV 10.0 fL 9.1-13.0 RDW 13.9 11.5-14.5 Jul 04, 2024 07:17 AM [facility] BASIC METABOLIC PANEL+MG Specimen Type: PLASMA No comment entered. Ordering Provider: GABINO CAMERON Report Released Date/Time: Jul 03, 2024 06:31 PM Reporting Lab: [facility] [address] Performing Lab: [facility] [address] CREATININE 0.7 mg/dL 0.7-1.2 UREA NITROGEN 16 mg/dL 8-26 GLUCOSE 129 mg/dL H 70-100 SODIUM 137 mmol/L 136-145 POTASSIUM 3.7 mmol/L 3.5-5.1 CHLORIDE 107 mmol/L 98-107 CO2 22 mmol/L 22-29 CALCIUM 9.0 mg/dL 8.4-10.2 MAGNESIUM 1.9 mg/dL 1.6-2.6 ANION GAP 8 mmol/L 5-15 .CREAT EGFR(CKD-EPI) >90 >60 Jul 04, 2024 07:17 AM [facility] PHOSPHORUS Specimen Type: PLASMA No comment entered. Ordering Provider: GABINO CAMERON Report Released Date/Time: Jul 03, 2024 06:31 PM Reporting Lab: [facility] [address] Performing Lab: [facility] [address] PHOSPHORUS 2.8 mg/dL 2.3-4.3 Jul 04, 2024 07:16 AM [facility] CBC Specimen Type: BLOOD No comment entered. Ordering Provider: GABINO CAMERON Report Released Date/Time: Jul 03, 2024 06:31 PM Reporting Lab: [facility] [address] Performing Lab: [facility] [address] WBC 20.6 H 4.0-11.0 RBC 4.63 4.60-6.20 HGB 14.2 g/dL 13.5-17.9 HCT 43.4 41.0-54.0 MCV 93.7 fL 80.0-100.0 MCH 30.7 pg 27.0-33.0 MCHC 32.7 g/dL 32.0-37.5 PLT 329 150-400 MPV 10.4 fL 9.1-13.0 RDW 13.8 11.5-14.5 Jul 04, 2024 07:16 AM [facility] CBC & DIFF Specimen Type: BLOOD Comment: Manual Differential Performed Ordering Provider: GABINO CAMERON Report Released Date/Time: Jul 03, 2024 06:31 PM Reporting Lab: [facility] [address] Performing Lab: [facility] [address] WBC 20.6 H 4.0-11.0 RBC 4.63 4.60-6.20 [...] MORPHOLOGY PRESENT Jul 04, 2024 07:15 AM [facility] BNP Specimen Type: PLASMA No comment entered. Ordering Provider: GABINO CAMERON Report Released Date/Time: Jul 03, 2024 06:31 PM Reporting Lab: [facility] [address] Performing Lab: [facility] [address] BNP 292 pg/mL H <99 Jul 03, 2024 10:32 PM [facility] FINGERSTICK GLUCOSE Specimen Type: BLOOD Comment: Save Result Nurse Notified Ordering Provider: KATELYNN PERSON Report Released Date/Time: Jul 03, 2024 10:50 PM Reporting Lab: [facility] [address] Performing Lab: [facility] [address] FINGERSTICK GLUCOSE 126 mg/dL H 70-100 Jul 03, 2024 05:33 PM [facility] FINGERSTICK GLUCOSE Specimen Type: BLOOD Comment: Save Result Nurse Notified Ordering Provider: KATELYNN PERSON Report Released Date/Time: Jul 03, 2024 05:46 PM Reporting Lab: [facility] [address] Performing Lab: [facility] [address] FINGERSTICK GLUCOSE 141 mg/dL H 70-100 Jul 03, 2024 02:31 PM [facility] POC ABG/ELECTROLYTES Specimen Type: ARTERIAL BLOOD Comment: FIO2 = 97% Patient Temp: 36.0 C Sample Type = ARTERIAL Ordering Provider: MAZIN ARREDONDO Report Released Date/Time: Jul 03, 2024 01:48 PM Reporting Lab: [facility] [address] Performing Lab: [facility] [address] POC PH 7.387 7.35-7.45 POC PCO2 34.4 [...] H 80.0-105.0 Jul 03, 2024 01:05 PM [facility] POC ABG/ELECTROLYTES Specimen Type: ARTERIAL BLOOD Comment: FIO2 = 53% Patient Temp: 36.2 C Sample Type = ARTERIAL Ordering Provider: MAZIN ARREDONDO Report Released Date/Time: Jul 03, 2024 01:48 PM Reporting Lab: [facility] [address] Performing Lab: [facility] [address] POC PH 7.280 L 7.35-7.45 POC PCO2 [...] mm[Hg] 80.0-105.0 Jul 03, 2024 06:15 AM [facility] URINALYSIS Specimen Type: URINE No comment entered. Ordering Provider: MARYBETH POWELL Report Released Date/Time: Jun 12, 2024 04:01 PM Reporting Lab: [facility] [address] Performing Lab: [facility] [address] URINE COLOR YELLOW SPECIFIC GRAVITY 1.031 1.003-1.03 [...] 250 NEGATIVE Jul 03, 2024 06:13 AM [facility] CBC Specimen Type: BLOOD No comment entered. Ordering Provider: MARYBETH POWELL Report Released Date/Time: Jun 12, 2024 03:59 PM Reporting Lab: [facility] [address] Performing Lab: [facility] [address] WBC 15.8 H 4.0-11.0 RBC 5.11 4.60-6.20 HGB 16.1 g/dL 13.5-17.9 HCT 49.1 41.0-54.0 MCV 96.1 fL 80.0-100.0 MCH 31.5 pg 27.0-33.0 MCHC 32.8 g/dL 32.0-37.5 PLT 357 150-400 MPV 9.8 fL 9.1-13.0 RDW 13.7 11.5-14.5 Jun 24, 2024 09:50 AM [facility] BASIC METABOLIC PANEL+MG Specimen Type: PLASMA Comment: Specimen received in Lab at: 0948 Ordering Provider: JEVON ZAZUETA Report Released Date/Time: Jun 23, 2024 06:07 PM Reporting Lab: [facility] [address] Performing Lab: [facility] [address] CREATININE 0.8 mg/dL 0.7-1.2 UREA NITROGEN 13 mg/dL 8-26 GLUCOSE 135 mg/dL H 70-100 SODIUM 135 mmol/L L 136-145 POTASSIUM 3.6 mmol/L 3.5-5.1 CHLORIDE 103 mmol/L 98-107 CO2 24 mmol/L 22-29 CALCIUM 9.2 mg/dL 8.4-10.2 MAGNESIUM 1.9 mg/dL 1.6-2.6 ANION GAP 8 mmol/L 5-15 .CREAT EGFR(CKD-EPI) >90 >60 Jun 24, 2024 09:50 AM [facility] CBC Specimen Type: BLOOD Comment: Specimen received in Lab at: 0948 Ordering Provider: JEVON ZAZUETA Report Released Date/Time: Jun 23, 2024 06:07 PM Reporting Lab: [facility] [address] Performing Lab: [facility] [address] WBC 15.5 H 4.0-11.0 RBC 4.93 4.60-6.20 HGB 15.2 g/dL 13.5-17.9 HCT 46.5 41.0-54.0 MCV 94.3 fL 80.0-100.0 MCH 30.8 pg 27.0-33.0 MCHC 32.7 g/dL 32.0-37.5 PLT 223 150-400 MPV 11.4 fL 9.1-13.0 RDW 13.9 11.5-14.5 Jun 23, 2024 07:52 AM [facility] COMPREHENSIVE METABOLIC PANEL+MG Specimen Type: PLASMA No comment entered. Ordering Provider: JEVON ZAZUETA Report Released Date/Time: Jun 22, 2024 05:51 PM Reporting Lab: [facility] [address] Performing Lab: [facility] [address] CREATININE 0.7 mg/dL 0.7-1.2 UREA NITROGEN 16 [...] >90 >60 Jun 23, 2024 07:52 AM [facility] CBC & DIFF Specimen Type: BLOOD Comment: Automated Differential Performed Ordering Provider: JEVON ZAZUETA Report Released Date/Time: Jun 22, 2024 05:51 PM Reporting Lab: [facility] [address] Performing Lab: [facility] [address] WBC 14.9 H 4.0-11.0 RBC 5.09 4.60-6.20 [...] 0.1 0.0-0.1 Jun 22, 2024 06:10 PM [facility] COMPREHENSIVE METABOLIC PANEL+MG Specimen Type: PLASMA No comment entered. Ordering Provider: JEVON ZAZUETA Report Released Date/Time: Jun 22, 2024 05:51 PM Reporting Lab: [facility] [address] Performing Lab: [facility] [address] CREATININE 0.7 mg/dL 0.7-1.2 UREA NITROGEN 17 [...] H 11-34 .CREAT EGFR(CKD-EPI) >90 >60 Jun 22, 2024 06:10 PM [facility] CBC Specimen Type: BLOOD No comment entered. Ordering Provider: JEVON ZAZUETA Report Released Date/Time: Jun 22, 2024 05:51 PM Reporting Lab: [facility] [address] Performing Lab: [facility] [address] WBC 16.9 H 4.0-11.0 RBC 5.28 4.60-6.20 HGB 16.9 g/dL 13.5-17.9 HCT 50.4 41.0-54.0 MCV 95.5 fL 80.0-100.0 MCH 32.0 pg 27.0-33.0 MCHC 33.5 g/dL 32.0-37.5 PLT 223 150-400 MPV 10.9 fL 9.1-13.0 RDW 14.0 11.5-14.5 Jun 21, 2024 06:48 PM [facility] URINALYSIS Specimen Type: URINE No comment entered. Ordering Provider: DELIA MARTINEZ Report Released Date/Time: Jun 21, 2024 05:45 PM Reporting Lab: [facility] [address] Performing Lab: [facility] [address] URINE COLOR YELLOW SPECIFIC GRAVITY 1.041 H [...] 500 NEGATIVE Jun 21, 2024 05:34 PM [facility] POC CREATININE Specimen Type: BLOOD No comment entered. Ordering Provider: DELIA MARTINEZ Report Released Date/Time: Jun 21, 2024 06:07 PM Reporting Lab: [facility] [address] Performing Lab: [facility] [address] POC CREATININE 1.1 mg/dL 0.6-1.3 Jun 21, 2024 05:30 PM [facility] POC ABG/LACTATE Specimen Type: VENOUS BLOOD No comment entered. Ordering Provider: DELIA MARTINEZ Report Released Date/Time: Jun 21, 2024 06:07 PM Reporting Lab: [facility] [address] Performing Lab: [facility] [address] POC PH 7.470 H 7.31-7.41 POC PCO2 31.2 mm[Hg] L 41.00-51 .0 0 POC PO2 46 mm[Hg] H 35.0-40.0 POC TCO2 24 mmol/L 24.0-29.0 POC HCO3 22.7 mmol/L L 23.0-28.0 POC BE ECT -1 mmol/L POC SO2 85 H 70-75 POC LACTATE 1.85 mmol/L 0.90-1.70 Jun 21, 2024 05:24 PM [facility] PROTHROMBIN TIME/INR Specimen Type: PLASMA No comment entered. Ordering Provider: DELIA MARTINEZ Report Released Date/Time: Jun 21, 2024 05:30 PM Reporting Lab: [facility] [address] Performing Lab: [facility] [address] .INR 1.2 H 0.8-1.1 .PT 13.9 s H 9.4-12.5 Jun 21, 2024 05:24 PM [facility] LIPASE Specimen Type: PLASMA No comment entered. Ordering Provider: DELIA MARTINEZ Report Released Date/Time: Jun 21, 2024 05:30 PM Reporting Lab: [facility] [address] Performing Lab: [facility] [address] LIPASE 32 U/L <60 Jun 21, 2024 05:24 PM [facility] EXTRA GOLD GEL TUBE Specimen Type: SERUM No comment entered. Ordering Provider: DELIA MARTINEZ Report Released Date/Time: Jun 21, 2024 05:41 PM Reporting Lab: [facility] [address] Performing Lab: [facility] [address] EXTRA GOLD GEL TUBE RECEIVED Jun 21, 2024 05:24 PM [facility] COMPREHENSIVE METABOLIC PANEL+MG Specimen Type: PLASMA No comment entered. Ordering Provider: DELIA MARTINEZ Report Released Date/Time: Jun 21, 2024 05:30 PM Reporting Lab: [facility] [address] Performing Lab: [facility] [address] CREATININE 0.9 mg/dL 0.7-1.2 UREA NITROGEN 29 [...] mg/dL <0.5 Jun 21, 2024 05:24 PM [facility] CBC & DIFF Specimen Type: BLOOD Comment: Manual Differential Performed Ordering Provider: DELIA MARTINEZ Report Released Date/Time: Jun 21, 2024 05:30 PM Reporting Lab: [facility] [address] Performing Lab: [facility] [address] WBC 21.3 H 4.0-11.0 RBC 5.48 4.60-6.20 [...] 15, 2024 08:30 AM VA-TOBACCO FORMER USER [facility] Tobacco Use History This section includes a history of the smoking, or tobacco-related health factors, that were collected on or before the date of the Encounter. The data comes from the [place] facility where the Encounter took place. Date/Time Smoking Status/Tobacco Use Comment F acility May 15, 2024 08:30 AM VA-TOBACCO QUIT 15 YRS OR MORE [facility] May 06, 2023 11:30 AM VA-TOBACCO FORMER USER [facility] May 06, 2023 11:30 AM VA-TOBACCO QUIT 15 YRS OR MORE [facility] Jun 04, 2022 09:00 AM VA-TOBACCO FORMER USER [facility] Jun 04, 2022 09:00 AM VA-TOBACCO QUIT 15 YRS OR MORE [facility] Jul 10, 2021 08:00 AM VA-TOBACCO FORMER USER [facility] Jul 10, 2021 08:00 AM VA-TOBACCO QUIT 5 TO < 15 YRS [facility] May 23, 2020 08:30 AM VA-TOBACCO FORMER USER [facility] May 23, 2020 08:30 AM VA-TOBACCO QUIT 5 TO < 15 YRS [facility] Mar 20, 2019 04:03 PM VA-TOBACCO FORMER USER [facility] Mar 20, 2019 04:03 PM VA-TOBACCO QUIT 5 TO < 15 YRS [facility] Mar 21, 2018 08:13 AM FORMER TOBACCO USER 7Y OR GREATE R [facility] Feb 24, 2017 09:24 AM FORMER TOBACCO USER 7Y OR GREATE R [facility] January 07, 2016 08:01 AM FORMER TOBACCO USE >1Y <7Y [facility] Feb 03, 2015 07:58 AM FORMER TOBACCO USE <1Y [facility] Feb 26, 2014 08:41 AM CURRENT TOBACCO USER [facility] May 13, 2011 01:45 PM CURRENT TOBACCO USER [facility] Advance Directives: All historical and current Section Date Range: From patient's date of to the date document was created. This section includes ALL of a patient's completed or amended [place] Advance and Rescinded Directives. The entries below indicate that a directive exists for the patient, but an actual copy is not included with this document. The data comes from all [place] facilities. Date Advance Directives Provider Source Mar 23, 2016 CLINICAL WARNING [facility] Radiology Reports: +/- 30 days of the [...] VIEWS PA A ND LAT: FLACA WEAVER [id number] -[id number] M Exm Date: JUL 08, 2024@10:09 Req Phys: KATELYNN PERSON Pat Loc: 2KG/07-08-2024@11:49 Img Loc: MAIN X-RAY Service: [place] [address] (Case 24 COMPLETE) CHEST 2 VIEWS PA AND LAT (RAD Detailed) CPT:91856 Reason for Study: Uptrending WBC, POD 5 Clinical History: Maryneal IS NOT under investigation for COVID-19 or is COVID-19 negative POD 5, work up for uptrending wbc Responsible provider name and phone number to notify for critical findings if other than user placing the order and pager listed below: User placing orders pager: Katelynn Person LAST CREATININE [phone] (07/07/24) Report Status: Verified Date Reported: JUL 08, 2024 Date Verified: JUL 08, 2024 Hay Farmer E-Sig: Report: CHEST 2 VIEWS PA AND LAT HISTORY: Uptrending WBC, POD 5 COMPARISON: CT chest 11/12/2022 TECHNIQUE: Frontal and lateral views of the chest, submitted to the [place] National Teleradiology Program (NTP) for interpretation. FINDINGS: Lungs: Clear. No focal consolidation. No pulmonary edema. Pleura: No pleural effusion or pneumothorax. Mediastinum: Normal size and contour. Bones: Unremarkable. Impression: No acute cardiopulmonary disease. READING PHYSICIAN: Sarbjit Vaughn M.D. -[id number] 07/08/2024 12:[address] [facility] National Teleradiology Program [phone] (For Medical Practitioner Use Only) Attention Patients / Veterans: If you have questions or concerns about these test results, please contact your ordering provider or primary care team. Primary Interpreting Staff: RADIOLOGY,OUTSIDE SERVICE, Staff Physician / RADIOLOGY,OUTSIDE SERVICE [facility] Jul 08, 2024 10:[address] (AP) ABDOMEN/PE LVIS W CONTRAST: FLACA WEAVER [id number] -[id number] M Exm Date: JUL 08, 2024@10:00 Req Phys: KATELYNN PERSON Loc: 2KG/07-08-2024@12:07 Img Loc: CT IMAGING Service: [place] [address] (Case 22 COMPLETE) CT (AP) ABDOMEN/PELVIS W CONTRAST(CT Detailed) CPT:48079 Contrast Media : Non-ionic Iodinated Reason for [...] PLASMA .CREAT EGFR(CKD-E >90 Ref: >=60 Allergies: ([place] only) TERAZOSIN (Mar 13, 2015) Report Status: Verified Date Reported: JUL 08, 2024 Date Verified: JUL 08, 2024 Hay Farmer E-Sig: Report: CT (AP) ABDOMEN/PELVIS W CONTRAST HISTORY: POD 5, Uptrending WBC - Concern for Abscess/other infection COMPARISON: June 21, 2024 TECHNIQUE: CT abdomen and pelvis was performed after intravenous contrast. Axial, sagittal and coronal reformatted images. The study was performed at the local [place] facility and images were sent to the [place] National Teleradiology Program (NTP) for interpretation. Number [...] as noted above READING PHYSICIAN: Celestino Blanc -[id number] 07/08/2024 13:[address] [facility] National Teleradiology Program [phone] (For Medical Practitioner Use Only) Attention Patients / Veterans: If you have questions or concerns about these test results, please contact your ordering provider or primary care team. Primary Interpreting Staff: RADIOLOGY,OUTSIDE SERVICE, Staff Physician / RADIOLOGY,OUTSIDE SERVICE [facility] Jun 22, 2024 11:49 AM ABSCESS DRAIN PLAC EMENT PERITONEAL (P): FLACA WEAVER [id number] -1950 M Ex Date: JUN 22, 2024@11:49 Req Phys: ANGELA HOLDEN Loc: 2KC/06-22-2024@17:14 Img Loc: INTERVENTIONAL RADIOLOGY Service: [place] [address] (Case [id number] COMPLETE) IR PERITONEAL/RETROPERITONEAL PER(ANI Detailed) CPT:21014 Reason for Study: diverticulitis with abscess (Case 3570 COMPLETE) IR MOD SEDATION 10-22 MIN (ANI Detailed) CPT:37715 Clinical History: IS NOT under investigation for COVID-19 or is COVID-19 negative 73 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 please place abscess drain. Contact number for responsible provider who can be reached for any questions or notifications of critical findings: [phone] n/a LAST CREATININE 0.9 (06/21/24) Report Status: Verified Date Reported: JUN 22, 2024 Date Verified: JUN 22, 2024 Hay Farmer E-Sig:/ES/LISA PENDLETON MD Report: PROCEDURES: Placement of [...] obtained. A pre-procedural Time-Out was performed per [facility] policy. The patient was placed in the supine position on the CT table. Preprocedural scan performed. The suprapubic region/lower abdominal wall was sterilely prepped and draped in the usual fashion.1% lidocaine without epinephrine was used for local anesthesia. Using real-time CT fluoroscopy, a 5 [place] Verinata Healthesis catheter was advanced into the collection in the left pelvis. A wire was coiled in the collection. The tract into the collection was dilated to accommodate the 12 [place] Irish locking pigtail drainage catheter. There was return [...] Primary Interpreting Staff: LISA PENDLETON MD, RADIOLOGIST (Hay Farmer) /LISA CARDONA [facility] Jun 22, 2024 11:[address] NEEDLE PLACEMEN T (P): FLACA WEAVER [id number] -1950 M Exm Date: JUN 22, 2024@11:48 Req Phys: ADINAANGELA Mcfarlane Amanda Loc: [facility]/06-22-2024@17:14 Img Loc: CT IMAGING Service: [place] [address] (Case [id number] COMPLETE) CT SCAN FOR NEEDLE PLACEMENT (CT Detailed) CPT:42283 Reason for Study: l pelvic abscess drain Clinical History: Report Status: Verified Date Reported: JUN 22, 2024 Date Verified: JUN 22, 2024 Hay Farmer E-Sig:/ES/LISA PENDLETON MD Report: PROCEDURES: Placement of [...] obtained. A pre-procedural Time-Out was performed per [facility] policy. The patient was placed in the supine position on the CT table. Preprocedural scan performed. The suprapubic region/lower abdominal wall was sterilely prepped and draped in the usual fashion.1% lidocaine without epinephrine was used for local anesthesia. Using real-time CT fluoroscopy, a 5 Northern Irish SDI-Solution catheter was advanced into the collection in the left pelvis. A wire was coiled in the collection. The tract into the collection was dilated to accommodate the 12 [place] locking pigtail drainage catheter. There was return [...] Primary Interpreting Staff: LISA PENDLETON MD, RADIOLOGIST (Hay Farmer) /JRT LISA PENDLETON [facility] Jun 21, 2024 06:[address] (AP) ABDOMEN/PE LVIS (P): FLACA WEAVER [id number] -1950 M Exm Date: JUN 21, 2024@18:09 Req Phys: DELIA MARTINEZ Loc: [facility] EMERGENCY DEPT WALK-IN (Re Img Loc: CT IMAGING Service: [place] [address] (Case [id number] COMPLETE) CT (AP) ABDOMEN/PELVIS W CONTRAST(CT Detailed) CPT:22500 Contrast Media : Non-ionic Iodinated Reason for [...] PLASMA .CREAT EGFR(CKD-E >90 Ref: >=60 Allergies: ([place] only) TERAZOSIN (Mar 13, 2015) Defer to [...] 21, 2024 Date Verified: JUN 21, 2024 Hay Farmer E-Sig:/ES/CARLOS A CUNNINGHAM DO Report: EXAMINATION: CT [...] Interpreting Staff: CARLOS A CUNNINGHAM DO, RADIOLOGIST (Hay Farmer) /CARLOS A ROWELL [facility] Pathology Reports: +/- 30 days [...] COSIGNER: URGENCY: STATUS: COMPLETED $APHDR Reporting Lab: [facility] [CLIA# [id number]] [place] [address] - - - - - - - [...] - PATHOLOGY REPORT Accession No. [id number] - - - - - - - [...] - PATHOLOGY REPORT Accession No. [id number] - - - - - - - [...] Second circumferential surgical margin, en face; E-F: Provider Enrollment Specialist diverticula; G: Provider Enrollment Specialist section of mesentery; H: Random architectural representative section of additional adipose tissue fragment. [...] One colonic tissue ring, bisected transversely. [facility]: Microscopic examination performed. DIAGNOSIS: 1. Colon, sigmoid, sigmoidectomy-- - Diverticulosis with perforation and focal abscess formation 2. Colon, anastomotic rings, excision-- - Viable colonic mucosa without diagnostic abnormality /alexi/ EDUARDO PALOMARES MD STAFF PATHOLOGIST Signed Jul 06, 2024@10:40 Performing Laboratory: Surgical Pathology Report Performed By: [facility] [CLIA# [id number]] [place] [address] $FTR - - - - - - - - - - - - - - - - - - - - - - - - - - - - - - - - - - - - - - - - (End of report) EDUARDO PALOMARES MD b Date Jul 06, 2024 - - - - - - - - - - - - - - - - - - - - - - - - - - - - - - - - - - - - - - - - FLACA WEAVER STANDARD FORM 515 ID:[id number] SEX:M :1950 AGE: 73 LOC:75355 ADM:Jun DX:DIVERTICULITIS PCP: Jatinder Cabrera /alexi/ EDUARDO PALOMARES MD STAFF PATHOLOGIST Signed: 07/06/2024 10:40 EDUARDO PALOMARES [facility] Jun 22, 2024 01:15 PM LR MICROBIOLOGY RE PORT: Reporting Lab: [facility] [CLIA# [id number]] [place] [address] Accession [UID]: [id number] [[id number]] Received: Jun 22, 2024@13:38 Collection sample: FLUID Collection date: Jun 22, 2024 13:15 Provider: ANGELA HOLDEN Comment on specimen: LLQ ABSCESS, RECEIVED IN ANAEROBIC TRANSPORT VIAL Test(s) ordered: GRAM STAIN.................... completed: Jun 22, 2024 15:03 CULTURE & SUSCEPTIBILITY...... completed: Jun 25, 2024 * BACTERIOLOGY FINAL REPORT => Jun 25, 2024 10:56 TECH CODE: [id number] GRAM STAIN: DIRECT SMEAR of specimen before [...] -=--=--=--=--=--=--=-- Performing Laboratory: Bacteriology Report Performed By: [facility] [CLIA# [id number]] [place] [address] [facility] Jun 22, 2024 01:15 PM LR MICROBIOLOGY RE PORT: Reporting Lab: [facility] [CLIA# [id number]] [place] [address] Accession [UID]: [id number] [[id number]] Received: Jun 22, 2024@13:38 Collection sample: FLUID Collection date: Jun 22, 2024 13:15 Provider: ANGELA HOLDEN Comment on specimen: LLQ ABSCESS, RECEIVED IN ANAEROBIC TRANSPORT VIAL Test(s) ordered: ANAEROBIC CULTURE............. completed: Jun 28, 2024 * BACTERIOLOGY FINAL REPORT => Jun 28, 2024 10:08 TECH CODE: [id number] CULTURE RESULTS: HEAVY GROWTH MIXED ANAEROBES Comment: including the followin+ Bacteroides fragilis 4+ Bacteroides vulgatus 4+ Clostridium innocuum Beta-lactamase negative 4+ Bacteroides caccae 4+ Parvimonas micra 4+ Bacteroides uniformis 4+ Gemella morbillorum 4+ anaerobic small, Gram Positive Rods 4+ Bacteroides thetaiotaomicron Standard workup is now complete. Bacteriology Remark(s): THIS REPORT IS FINAL =--=--=--=--=--=--=--=--=--= --=--=--=--=--=--=--=--=--=- -=--=--=--=--=--=--=-- Performing Laboratory: Bacteriology Report Performed By: [facility] [CLIA# [id number]] [place] [address] [facility] Jun 21, 2024 06:12 PM LR MICROBIOLOGY RE PORT: Reporting Lab: [facility] [CLIA# [id number]] [place] [address] Accession [UID]: [id number] [[id number]] Received: Jun 21, 2024@18:12 Collection sample: BLOOD [...] -=--=--=--=--=--=--=-- Performing Laboratory: Bacteriology Report Performed By: [facility] [CLIA# [id number]] [place] [address] [facility] Jun 21, 2024 06:11 PM LR MICROBIOLOGY RE PORT: Reporting Lab: [facility] [CLIA# [id number]] [place] [address] Accession [UID]: [id number] [[id number]] Received: Jun 21, 2024@18:11 Collection sample: BLOOD [...] -=--=--=--=--=--=--=-- Performing Laboratory: Bacteriology Report Performed By: [facility] [CLIA# [id number]] [address] [place] [address] [facility] Encounter Notes: All associated encounter notes This section contains the clinical notes associated to the Encounter. Date/Time Encounter Note(s) Provider Source Jul 13, 2024 10:26 AM ADDENDUM: LOCAL TITLE: Addendum STANDARD TITLE: ADDENDUM DATE OF NOTE: JUL 13, 2024@10:26:22 ENTRY DATE: JUL 13, 2024@10:26:23 AUTHOR: SHAHNAZ ALAS COSIGNER: URGENCY: STATUS: COMPLETED Records have been requested for this episode of care. Alerting PACT RN for awareness. /alexi/ Shahnaz Alas HOME APPLIANCES MECHANIC numerical control machine operator Solar Maintenance Technician Signed: 07/13/2024 10:26 Receipt Acknowledged By: 07/13/2024 10:53 /es/ GUERITA AGUILA RN REGISTERED NURSE --- Original Document --- 07/13/24 [facility] PRESENTING CARE COORD PLAN NOTE: Emergency Notification Intake Date Presenting to the Facility: Jun Method of Contact: Notified from ECR worklist Notification ID: [id number] [facility] Referral #: Name: Hospital: [facility] Address: City: [place] State: [place] Zip Code: Phone : [facility] Point of Contact: Name: JEEVAN BUSTILLO Chief complaint: RECENT OSTOMY, UNABLE TO EAT OR DRINK DUE TO NAUSEA Primary Diagnosis: Disposition Unknown at time of intake note entry /alexi/ WENDY ESQUIVEL HEALTH ORNAMENTAL IRONWORKER Signed: 07/13/2024 08:17 Receipt Acknowledged By: 07/13/2024 10:25 /alexi/ Shahnaz Alas HOME APPLIANCES MECHANIC numerical control machine operator Solar Maintenance Technician SHAHNAZ ALAS [facility] Jul 13, 2024 08:16 AM NONVA NOTE: LOCAL TITLE: [facility] SELF PRESENTING CARE COORD PLAN STANDARD TITLE: NONVA NOTE DATE OF NOTE: JUL 13, 2024@08:16 ENTRY DATE: JUL 13, 2024@08:16:29 AUTHOR: WENDY ESQUIVEL EXP COSIGNER: URGENCY: STATUS: COMPLETED [facility] SELF PRESENTING CARE COORD PLAN NOTE Has ADDENDA Emergency Notification Intake Date Presenting to the Facility: Jun Method of Contact: Notified from ECR worklist Notification ID: [id number] [facility] Referral #: Name: Hospital: [facility] Address: City: [place] State: [place] Zip Code: Phone : [facility] Facility Point of Contact: Name: ED IWONA Chief complaint: RECENT OSTOMY, UNABLE TO EAT OR DRINK DUE TO NAUSEA Primary Diagnosis: Disposition Unknown at time of intake note entry /alexi/ WENDY ESQUIVEL HEALTH ORNAMENTAL IRONWORKER Signed: 07/13/2024 08:17 Receipt Acknowledged By: 07/13/2024 10:25 /alexi/ Shahnaz Alas HOME APPLIANCES MECHANIC numerical control machine operator Solar Maintenance Technician 07/13/2024 ADDENDUM STATUS: COMPLETED Records have been requested for this episode of care. Alerting PACT RN for awareness. /jerome Alas HOME APPLIANCES MECHANIC numerical control machine operator Solar Maintenance Technician Signed: 07/13/2024 10:26 Receipt Acknowledged By: * AWAITING SIGNATURE * GUERITA AGUILA ZACHARY J [facility]
--- OUTSIDE RECORDS SUMMARY | 2024-07-16 07:14 | XMS_ITS ---
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 Date/Time Encounter Type Encounter Description Reason Pro vider Source Jul 04, 2024 07:21 PM Inpatient Visit DAILY HOSPITALIZATION DATA [facility] Encounter Template Text not used by [...] Date/Time Appointment Type Appointme nt Facility Name Jul 13, 2024 08:15 AM AMBULATORY - NONE [facility] Active, Pending, and Scheduled Orders This [...] Date/Time Test Type Test Details Facility Name May 28, 2024 12:00 AM Laboratory - Blood Bank Order TYPE & SCREEN - LAB BLOOD SP [facility] Jun 08, 2024 09:57 AM Laboratory - Chemi stry Order URINALYSIS URINE WC ONCE [facility] Jun 12, 2024 12:00 AM Laboratory - Chemi stry Order BNP PLASMA SP ONCE [facility] Jun 21, 2024 05:45 PM Laboratory - Blood Bank Order TYPE & SCREEN - LAB BLOOD [facility] Jul 03, 2024 12:00 AM Laboratory - Blood Bank Order TYPE & SCREEN - LAB BLOOD [facility] Jul 16, 2024 12:00 AM Laboratory - Chemi stry Order CBC BLOOD SP ONCE [facility] Jul 17, 2024 12:00 AM Laboratory - Chemi stry Order BASIC METABOLIC PANEL+MG PLASMA SP ONCE [facility] Lab [...] Range Comment Jul 10, 2024 07:16 AM [facility] PHOSPHORUS Specimen Type: PLASMA No comment entered. Ordering Provider: JUANCARLOS ECHOLS S Report Released Date/Time: Jul 09, 2024 12:23 PM Reporting Lab: [facility] [address] Performing Lab: [facility] [address] PHOSPHORUS 3.0 mg/dL 2.3-4.3 Jul 10, 2024 07:16 AM [facility] BASIC METABOLIC PANEL+MG Specimen Type: PLASMA No comment entered. Ordering Provider: JUANCARLOS ECHOLS S Report Released Date/Time: Jul 09, 2024 12:23 PM Reporting Lab: [facility] [address] Performing Lab: [facility] [address] CREATININE 0.7 mg/dL 0.7-1.2 UREA NITROGEN 27 mg/dL H 8-26 GLUCOSE 104 mg/dL H 70-100 SODIUM 133 mmol/L L 136-145 POTASSIUM 4.3 mmol/L 3.5-5.1 CHLORIDE 102 mmol/L 98-107 CO2 19 mmol/L L 22-29 CALCIUM 10.1 mg/dL 8.4-10.2 MAGNESIUM 1.9 mg/dL 1.6-2.6 ANION GAP 12 mmol/L 5-15 .CREAT EGFR(CKD-EPI) >90 >60 Jul 10, 2024 07:15 AM [facility] CBC Specimen Type: BLOOD No comment entered. Ordering Provider: JUANCARLOS ECHOLS Report Released Date/Time: Jul 09, 2024 12:23 PM Reporting Lab: [facility] [address] Performing Lab: [facility] [address] WBC 18.8 H 4.0-11.0 RBC 5.08 4.60-6.20 HGB 15.9 g/dL 13.5-17.9 HCT 46.8 41.0-54.0 MCV 92.1 fL 80.0-100.0 MCH 31.3 pg 27.0-33.0 MCHC 34.0 g/dL 32.0-37.5 PLT 479 H 150-400 MPV 10.2 fL 9.1-13.0 RDW 13.7 11.5-14.5 Jul 09, 2024 07:08 AM [facility] CBC Specimen Type: BLOOD No comment entered. Ordering Provider: QUYNH WEISS AV Report Released Date/Time: Jul 08, 2024 06:18 PM Reporting Lab: [facility] [address] Performing Lab: [facility] [address] WBC 15.3 H 4.0-11.0 RBC 4.91 4.60-6.20 HGB 15.1 g/dL 13.5-17.9 HCT 45.7 41.0-54.0 MCV 93.1 fL 80.0-100.0 MCH 30.8 pg 27.0-33.0 MCHC 33.0 g/dL 32.0-37.5 PLT 443 H 150-400 MPV 10.0 fL 9.1-13.0 RDW 13.5 11.5-14.5 Jul 08, 2024 10:50 AM [facility] URINALYSIS Specimen Type: URINE No comment entered. Ordering Provider: KATELYNN PERSON Report Released Date/Time: Jul 08, 2024 08:41 AM Reporting Lab: [facility] [address] Performing Lab: [facility] [address] URINE COLOR YELLOW SPECIFIC GRAVITY >1.050 H [...] NEGATIVE NEGATIVE Jul 08, 2024 09:54 AM [facility] CBC Specimen Type: BLOOD Comment: Specimen received in Lab at: 0952 Ordering Provider: JUANCARLOS ECHOLS Report Released Date/Time: Jul 07, 2024 04:49 PM Reporting Lab: [facility] [address] Performing Lab: [facility] [address] WBC 17.5 H 4.0-11.0 RBC 4.88 4.60-6.20 HGB 14.9 g/dL 13.5-17.9 HCT 45.7 41.0-54.0 MCV 93.6 fL 80.0-100.0 MCH 30.5 pg 27.0-33.0 MCHC 32.6 g/dL 32.0-37.5 PLT 472 H 150-400 MPV 10.2 fL 9.1-13.0 RDW 13.7 11.5-14.5 Jul 08, 2024 09:54 AM [facility] PHOSPHORUS Specimen Type: PLASMA Comment: Specimen received in Lab at: 0952 Ordering Provider: BALAJADIA,MAR IA S Report Released Date/Time: Jul 07, 2024 04:49 PM Reporting Lab: [facility] [address] Performing Lab: [facility] [address] PHOSPHORUS 2.6 mg/dL 2.3-4.3 Jul 08, 2024 09:54 AM [facility] BASIC METABOLIC PANEL+MG Specimen Type: PLASMA Comment: Specimen received in Lab at: 0952 Ordering Provider: JUANCARLOS ECHOLS S Report Released Date/Time: Jul 07, 2024 04:49 PM Reporting Lab: [facility] [address] Performing Lab: [facility] [address] CREATININE 0.9 mg/dL 0.7-1.2 UREA NITROGEN 26 mg/dL 8-26 GLUCOSE 128 mg/dL H 70-100 SODIUM 134 mmol/L L 136-145 POTASSIUM 3.4 mmol/L L 3.5-5.1 CHLORIDE 100 mmol/L 98-107 CO2 24 mmol/L 22-29 CALCIUM 9.8 mg/dL 8.4-10.2 MAGNESIUM 1.8 mg/dL 1.6-2.6 ANION GAP 10 mmol/L 5-15 .CREAT EGFR(CKD-EPI) >90 >60 Jul 07, 2024 02:00 PM [facility] C DIFF PANEL Specimen Type: FECES No comment entered. Ordering Provider: JEVON ZAZUETA Report Released Date/Time: Jul 07, 2024 12:26 PM Reporting Lab: [facility] [address] Performing Lab: [facility] [address] C DIFF TOX B GENE PCR NEGATIVE Negative Jul 07, 2024 07:41 AM [facility] PHOSPHORUS Specimen Type: PLASMA No comment entered. Ordering Provider: JEVON ZAZUETA Report Released Date/Time: Jul 06, 2024 03:44 PM Reporting Lab: [facility] [address] Performing Lab: [facility] [address] PHOSPHORUS 3.1 mg/dL 2.3-4.3 Jul 07, 2024 07:41 AM [facility] BASIC METABOLIC PANEL+MG Specimen Type: PLASMA No comment entered. Ordering Provider: JEVON ZAZUETA Report Released Date/Time: Jul 06, 2024 03:44 PM Reporting Lab: [facility] [address] Performing Lab: [facility] [address] CREATININE 0.9 mg/dL 0.7-1.2 UREA NITROGEN 20 mg/dL 8-26 GLUCOSE 157 mg/dL H 70-100 SODIUM 136 mmol/L 136-145 POTASSIUM 3.7 mmol/L 3.5-5.1 CHLORIDE 102 mmol/L 98-107 CO2 21 mmol/L L 22-29 CALCIUM 9.8 mg/dL 8.4-10.2 MAGNESIUM 1.9 mg/dL 1.6-2.6 ANION GAP 13 mmol/L 5-15 .CREAT EGFR(CKD-EPI) >90 >60 Jul 07, 2024 07:40 AM [facility] CBC Specimen Type: BLOOD No comment entered. Ordering Provider: JEVON ZAZUETA Report Released Date/Time: Jul 06, 2024 03:44 PM Reporting Lab: [facility] [address] Performing Lab: [facility] [address] WBC 21.2 H 4.0-11.0 RBC 5.09 4.60-6.20 HGB 15.9 g/dL 13.5-17.9 HCT 48.3 41.0-54.0 MCV 94.9 fL 80.0-100.0 MCH 31.2 pg 27.0-33.0 MCHC 32.9 g/dL 32.0-37.5 PLT 500 H 150-400 MPV 10.3 fL 9.1-13.0 RDW 13.6 11.5-14.5 Jul 06, 2024 07:21 AM [facility] CBC Specimen Type: BLOOD No comment entered. Ordering Provider: JEVON ZAZUETA Report Released Date/Time: Jul 05, 2024 01:22 PM Reporting Lab: [facility] [address] Performing Lab: [facility] [address] WBC 18.0 H 4.0-11.0 RBC 4.83 4.60-6.20 HGB 14.6 g/dL 13.5-17.9 HCT 45.5 41.0-54.0 MCV 94.2 fL 80.0-100.0 MCH 30.2 pg 27.0-33.0 MCHC 32.1 g/dL 32.0-37.5 PLT 368 150-400 MPV 10.4 fL 9.1-13.0 RDW 13.6 11.5-14.5 Jul 06, 2024 07:21 AM [facility] PHOSPHORUS Specimen Type: PLASMA No comment entered. Ordering Provider: JEVON ZAZUETA Report Released Date/Time: Jul 05, 2024 01:22 PM Reporting Lab: [facility] [address] Performing Lab: [facility] [address] PHOSPHORUS 3.6 mg/dL 2.3-4.3 Jul 06, 2024 07:21 AM [facility] BASIC METABOLIC PANEL+MG Specimen Type: PLASMA No comment entered. Ordering Provider: JEVON ZAZUETA Report Released Date/Time: Jul 05, 2024 01:22 PM Reporting Lab: [facility] [address] Performing Lab: [facility] [address] CREATININE 0.7 mg/dL 0.7-1.2 UREA NITROGEN 12 mg/dL 8-26 GLUCOSE 108 mg/dL H 70-100 SODIUM 138 mmol/L 136-145 POTASSIUM 3.4 mmol/L L 3.5-5.1 CHLORIDE 104 mmol/L 98-107 CO2 20 mmol/L L 22-29 CALCIUM 9.3 mg/dL 8.4-10.2 MAGNESIUM 1.9 mg/dL 1.6-2.6 ANION GAP 14 mmol/L 5-15 .CREAT EGFR(CKD-EPI) >90 >60 Jul 05, 2024 07:17 AM [facility] MAGNESIUM Specimen Type: PLASMA No comment entered. Ordering Provider: JUANCARLOS ECHOLS S Report Released Date/Time: Jul 04, 2024 09:39 AM Reporting Lab: [facility] [address] Performing Lab: [facility] [address] MAGNESIUM 2.0 mg/dL 1.6-2.6 Jul 05, 2024 07:17 AM [facility] PHOSPHORUS Specimen Type: PLASMA No comment entered. Ordering Provider: JUANCARLOS ECHOLS S Report Released Date/Time: Jul 04, 2024 09:39 AM Reporting Lab: [facility] [address] Performing Lab: [facility] [address] PHOSPHORUS 2.0 mg/dL L 2.3-4.3 Jul 05, 2024 07:17 AM [facility] BASIC METABOLIC PANEL+MG Specimen Type: PLASMA No comment entered. Ordering Provider: JUANCARLOS ECHOLS S Report Released Date/Time: Jul 04, 2024 09:39 AM Reporting Lab: [facility] [address] Performing Lab: [facility] [address] CREATININE 0.7 mg/dL 0.7-1.2 UREA NITROGEN 12 mg/dL 8-26 GLUCOSE 84 mg/dL 70-100 SODIUM 135 mmol/L L 136-145 POTASSIUM 3.8 mmol/L 3.5-5.1 CHLORIDE 104 mmol/L 98-107 CO2 24 mmol/L 22-29 CALCIUM 9.3 mg/dL 8.4-10.2 MAGNESIUM 2.0 mg/dL 1.6-2.6 ANION GAP 7 mmol/L 5-15 .CREAT EGFR(CKD-EPI) >90 >60 Jul 05, 2024 07:16 AM [facility] CBC Specimen Type: BLOOD No comment entered. Ordering Provider: JUANCARLOS ECHOLS S Report Released Date/Time: Jul 04, 2024 09:39 AM Reporting Lab: [facility] [address] Performing Lab: [facility] [address] WBC 18.3 H 4.0-11.0 RBC 4.49 L 4.60-6.20 HGB 14.1 g/dL 13.5-17.9 HCT 43.4 41.0-54.0 MCV 96.7 fL 80.0-100.0 MCH 31.4 pg 27.0-33.0 MCHC 32.5 g/dL 32.0-37.5 PLT 317 150-400 MPV 10.0 fL 9.1-13.0 RDW 13.9 11.5-14.5 Jul 04, 2024 07:17 AM [facility] PHOSPHORUS Specimen Type: PLASMA No comment entered. Ordering Provider: GABINO CAMERON Report Released Date/Time: Jul 03, 2024 06:31 PM Reporting Lab: [facility] [address] Performing Lab: [facility] [address] PHOSPHORUS 2.8 mg/dL 2.3-4.3 Jul 04, 2024 07:17 AM [facility] BASIC METABOLIC PANEL+MG Specimen Type: PLASMA No comment entered. Ordering Provider: GABINO CAMERON Report Released Date/Time: Jul 03, 2024 06:31 PM Reporting Lab: [facility] [address] Performing Lab: [facility] [address] CREATININE 0.7 mg/dL 0.7-1.2 UREA NITROGEN 16 mg/dL 8-26 GLUCOSE 129 mg/dL H 70-100 SODIUM 137 mmol/L 136-145 POTASSIUM 3.7 mmol/L 3.5-5.1 CHLORIDE 107 mmol/L 98-107 CO2 22 mmol/L 22-29 CALCIUM 9.0 mg/dL 8.4-10.2 MAGNESIUM 1.9 mg/dL 1.6-2.6 ANION GAP 8 mmol/L 5-15 .CREAT EGFR(CKD-EPI) >90 >60 Jul 04, 2024 07:16 AM [facility] CBC Specimen Type: BLOOD No comment entered. Ordering Provider: GABINO CAMERON Report Released Date/Time: Jul 03, 2024 06:31 PM Reporting Lab: [facility] [address] Performing Lab: [facility] [address] WBC 20.6 H 4.0-11.0 RBC 4.63 4.60-6.20 HGB 14.2 g/dL 13.5-17.9 HCT 43.4 41.0-54.0 MCV 93.7 fL 80.0-100.0 MCH 30.7 pg 27.0-33.0 MCHC 32.7 g/dL 32.0-37.5 PLT 329 150-400 MPV 10.4 fL 9.1-13.0 RDW 13.8 11.5-14.5 Jul 04, 2024 07:16 AM [facility] CBC & DIFF Specimen Type: BLOOD Comment: Manual Differential Performed Ordering Provider: GABINO CAMERON Report Released Date/Time: Jul 03, 2024 06:31 PM Reporting Lab: [facility] [address] Performing Lab: [facility] [address] WBC 20.6 H 4.0-11.0 RBC 4.63 4.60-6.20 [...] MORPHOLOGY PRESENT Jul 04, 2024 07:15 AM [facility] BNP Specimen Type: PLASMA No comment entered. Ordering Provider: GABINO CAMERON Report Released Date/Time: Jul 03, 2024 06:31 PM Reporting Lab: [facility] [address] Performing Lab: [facility] [address] BNP 292 pg/mL H <99 Jul 03, 2024 10:32 PM [facility] FINGERSTICK GLUCOSE Specimen Type: BLOOD Comment: Save Result Nurse Notified Ordering Provider: KATELYNN PERSON Report Released Date/Time: Jul 03, 2024 10:50 PM Reporting Lab: [facility] [address] Performing Lab: [facility] [address] FINGERSTICK GLUCOSE 126 mg/dL H 70-100 Jul 03, 2024 05:33 PM [facility] [place] GLUCOSE Specimen Type: BLOOD Comment: Save Result Nurse Notified Ordering Provider: KATELYNN PERSON Report Released Date/Time: Jul 03, 2024 05:46 PM Reporting Lab: [facility] [address] Performing Lab: [facility] [address] FINGERSTICK GLUCOSE 141 mg/dL H 70-100 Jul 03, 2024 02:31 PM [facility] POC ABG/ELECTROLYTES Specimen Type: ARTERIAL BLOOD Comment: FIO2 = 97% Patient Temp: 36.0 C Sample Type = ARTERIAL Ordering Provider: MAZIN ARREDONDO Report Released Date/Time: Jul 03, 2024 01:48 PM Reporting Lab: [facility] [address] Performing Lab: [facility] [address] POC PH 7.387 7.35-7.45 POC PCO2 34.4 [...] H 80.0-105.0 Jul 03, 2024 01:05 PM [facility] POC ABG/ELECTROLYTES Specimen Type: ARTERIAL BLOOD Comment: FIO2 = 53% Patient Temp: 36.2 C Sample Type = ARTERIAL Ordering Provider: MAZIN ARREDONDO Report Released Date/Time: Jul 03, 2024 01:48 PM Reporting Lab: [facility] [address] Performing Lab: [facility] [address] POC PH 7.280 L 7.35-7.45 POC PCO2 [...] mm[Hg] 80.0-105.0 Jul 03, 2024 06:15 AM [facility] URINALYSIS Specimen Type: URINE No comment entered. Ordering Provider: MARYBETH POWELL Report Released Date/Time: Jun 12, 2024 04:01 PM Reporting Lab: [facility] [address] Performing Lab: [facility] [address] URINE COLOR YELLOW SPECIFIC GRAVITY 1.031 1.003-1.03 [...] 250 NEGATIVE Jul 03, 2024 06:13 AM [facility] CBC Specimen Type: BLOOD No comment entered. Ordering Provider: MARYBETH POWELL Report Released Date/Time: Jun 12, 2024 03:59 PM Reporting Lab: [facility] [address] Performing Lab: [facility] [address] WBC 15.8 H 4.0-11.0 RBC 5.11 4.60-6.20 HGB 16.1 g/dL 13.5-17.9 HCT 49.1 41.0-54.0 MCV 96.1 fL 80.0-100.0 MCH 31.5 pg 27.0-33.0 MCHC 32.8 g/dL 32.0-37.5 PLT 357 150-400 MPV 9.8 fL 9.1-13.0 RDW 13.7 11.5-14.5 Jun 24, 2024 09:50 AM [facility] BASIC METABOLIC PANEL+MG Specimen Type: PLASMA Comment: Specimen received in Lab at: 0948 Ordering Provider: JEVON ZAZUETA Report Released Date/Time: Jun 23, 2024 06:07 PM Reporting Lab: [facility] [address] Performing Lab: [facility] [address] CREATININE 0.8 mg/dL 0.7-1.2 UREA NITROGEN 13 mg/dL 8-26 GLUCOSE 135 mg/dL H 70-100 SODIUM 135 mmol/L L 136-145 POTASSIUM 3.6 mmol/L 3.5-5.1 CHLORIDE 103 mmol/L 98-107 CO2 24 mmol/L 22-29 CALCIUM 9.2 mg/dL 8.4-10.2 MAGNESIUM 1.9 mg/dL 1.6-2.6 ANION GAP 8 mmol/L 5-15 .CREAT EGFR(CKD-EPI) >90 >60 Jun 24, 2024 09:50 AM [facility] CBC Specimen Type: BLOOD Comment: Specimen received in Lab at: 0948 Ordering Provider: JEVON ZAZUETA Report Released Date/Time: Jun 23, 2024 06:07 PM Reporting Lab: [facility] [address] Performing Lab: [facility] [address] WBC 15.5 H 4.0-11.0 RBC 4.93 4.60-6.20 HGB 15.2 g/dL 13.5-17.9 HCT 46.5 41.0-54.0 MCV 94.3 fL 80.0-100.0 MCH 30.8 pg 27.0-33.0 MCHC 32.7 g/dL 32.0-37.5 PLT 223 150-400 MPV 11.4 fL 9.1-13.0 RDW 13.9 11.5-14.5 Jun 23, 2024 07:52 AM [facility] COMPREHENSIVE METABOLIC PANEL+MG Specimen Type: PLASMA No comment entered. Ordering Provider: JEVON ZAZUETA Report Released Date/Time: Jun 22, 2024 05:51 PM Reporting Lab: [facility] [address] Performing Lab: [facility] [address] CREATININE 0.7 mg/dL 0.7-1.2 UREA NITROGEN 16 [...] >90 >60 Jun 23, 2024 07:52 AM [facility] CBC & DIFF Specimen Type: BLOOD Comment: Automated Differential Performed Ordering Provider: JEVON ZAZUETA Report Released Date/Time: Jun 22, 2024 05:51 PM Reporting Lab: [facility] [address] Performing Lab: [facility] [address] WBC 14.9 H 4.0-11.0 RBC 5.09 4.60-6.20 [...] 0.1 0.0-0.1 Jun 22, 2024 06:10 PM [facility] CBC Specimen Type: BLOOD No comment entered. Ordering Provider: JEVON ZAZUETA Report Released Date/Time: Jun 22, 2024 05:51 PM Reporting Lab: [facility] [address] Performing Lab: [facility] [address] WBC 16.9 H 4.0-11.0 RBC 5.28 4.60-6.20 HGB 16.9 g/dL 13.5-17.9 HCT 50.4 41.0-54.0 MCV 95.5 fL 80.0-100.0 MCH 32.0 pg 27.0-33.0 MCHC 33.5 g/dL 32.0-37.5 PLT 223 150-400 MPV 10.9 fL 9.1-13.0 RDW 14.0 11.5-14.5 Jun 22, 2024 06:10 PM [facility] COMPREHENSIVE METABOLIC PANEL+MG Specimen Type: PLASMA No comment entered. Ordering Provider: JEVON ZAZUETA Report Released Date/Time: Jun 22, 2024 05:51 PM Reporting Lab: [facility] [address] Performing Lab: [facility] [address] CREATININE 0.7 mg/dL 0.7-1.2 UREA NITROGEN 17 [...] >90 >60 Jun 21, 2024 06:48 PM [facility] URINALYSIS Specimen Type: URINE No comment entered. Ordering Provider: DELIA MARTINEZ Report Released Date/Time: Jun 21, 2024 05:45 PM Reporting Lab: [facility] [address] Performing Lab: [facility] [address] URINE COLOR YELLOW SPECIFIC GRAVITY 1.041 H [...] 500 NEGATIVE Jun 21, 2024 05:34 PM [facility] POC CREATININE Specimen Type: BLOOD No comment entered. Ordering Provider: DELIA MARTINEZ Report Released Date/Time: Jun 21, 2024 06:07 PM Reporting Lab: [facility] [address] Performing Lab: [facility] [address] POC CREATININE 1.1 mg/dL 0.6-1.3 Jun 21, 2024 05:30 PM [facility] POC ABG/LACTATE Specimen Type: VENOUS BLOOD No comment entered. Ordering Provider: DELIA MARTIENZ Report Released Date/Time: Jun 21, 2024 06:07 PM Reporting Lab: [facility] [address] Performing Lab: [facility] [address] POC PH 7.470 H 7.31-7.41 POC PCO2 31.2 mm[Hg] L 41.00-51 .0 0 POC PO2 46 mm[Hg] H 35.0-40.0 POC TCO2 24 mmol/L 24.0-29.0 POC HCO3 22.7 mmol/L L 23.0-28.0 POC BE ECT -1 mmol/L POC SO2 85 H 70-75 POC LACTATE 1.85 mmol/L 0.90-1.70 Jun 21, 2024 05:24 PM [facility] PROTHROMBIN TIME/INR Specimen Type: PLASMA No comment entered. Ordering Provider: DELIA MARTINEZ Report Released Date/Time: Jun 21, 2024 05:30 PM Reporting Lab: [facility] [address] Performing Lab: [facility] [address] .INR 1.2 H 0.8-1.1 .PT 13.9 s H 9.4-12.5 Jun 21, 2024 05:24 PM [facility] LIPASE Specimen Type: PLASMA No comment entered. Ordering Provider: DELIA MARTINEZ Report Released Date/Time: Jun 21, 2024 05:30 PM Reporting Lab: [facility] [address] Performing Lab: [facility] [address] LIPASE 32 U/L <60 Jun 21, 2024 05:24 PM [facility] EXTRA GOLD GEL TUBE Specimen Type: SERUM No comment entered. Ordering Provider: DELIA MARTINEZ Report Released Date/Time: Jun 21, 2024 05:41 PM Reporting Lab: [facility] [address] Performing Lab: [facility] [address] EXTRA GOLD GEL TUBE RECEIVED Jun 21, 2024 05:24 PM [facility] COMPREHENSIVE METABOLIC PANEL+MG Specimen Type: PLASMA No comment entered. Ordering Provider: DELIA MARTINEZ Report Released Date/Time: Jun 21, 2024 05:30 PM Reporting Lab: [facility] [address] Performing Lab: [facility] [address] CREATININE 0.9 mg/dL 0.7-1.2 UREA NITROGEN 29 [...] mg/dL <0.5 Jun 21, 2024 05:24 PM [facility] CBC & DIFF Specimen Type: BLOOD Comment: Manual Differential Performed Ordering Provider: DELIA MARTINEZ Report Released Date/Time: Jun 21, 2024 05:30 PM Reporting Lab: [facility] [address] Performing Lab: [facility] [address] WBC 21.3 H 4.0-11.0 RBC 5.48 4.60-6.20 [...] ABS BASO 0.0 0.0-0.2 .RBC MORPHOLOGY PRESENT Jun 08, 2024 10:59 AM [facility] PROTHROMBIN TIME/INR Specimen Type: PLASMA No comment entered. Ordering Provider: MARYEBTH POWELL Report Released Date/Time: May 28, 2024 09:02 AM Reporting Lab: [facility] [phone] Performing Lab: [facility] [phone] .INR 1.0 0.8-1.1 .PT 11.8 s 9.4-12.5 Jun 08, 2024 10:59 AM [facility] HEMOGLOBIN A1C Specimen Type: BLOOD Comment: Values obtained from A1C measurements can vary. For typical A1C assays, a reported value of 7.0 could actually be between 6.7 and 7.3 if measured by a reference method. A reported value of 9.0 could actually be between 8.7 and 9.3. Ref: http://www.ng sp.org/CAPdat a.asp Ordering Provider: MARYBETH POWELL Report Released Date/Time: May 28, 2024 09:02 AM Reporting Lab: [facility] [phone] Performing Lab: [facility] [phone] HEMOGLOBIN A1C 4.9 4.0-6.0 Jun 08, 2024 10:59 AM [facility] CBC Specimen Type: BLOOD No comment entered. Ordering Provider: MARYBETH POWELL Report Released Date/Time: May 28, 2024 09:02 AM Reporting Lab: [facility] [phone] Performing Lab: [facility] [phone] WBC 16.1 H 4.0-11.0 RBC 5.02 4.60-6.20 HGB 16.0 g/dL 13.5-17.9 HCT 47.1 41.0-54.0 MCV 93.8 fL 80.0-100.0 MCH 31.9 pg 27.0-33.0 MCHC 34.0 g/dL 32.0-37.5 PLT 228 150-400 MPV 10.3 fL 9.1-13.0 RDW 14.6 H 11.5-14.5 Jun 08, 2024 10:59 AM [facility] BASIC METABOLIC PANEL+MG Specimen Type: PLASMA No comment entered. Ordering Provider: MARYBETH POWELL Report Released Date/Time: May 28, 2024 09:02 AM Reporting Lab: [facility] [id number] Performing Lab: [facility] [id number] CREATININE 0.9 mg/dL 0.7-1.2 UREA NITROGEN 15 mg/dL 8-26 GLUCOSE 93 mg/dL 70-100 SODIUM 139 mmol/L 136-145 POTASSIUM 3.7 mmol/L 3.5-5.1 CHLORIDE 106 mmol/L 98-107 CO2 25 mmol/L 22-29 CALCIUM 9.8 mg/dL 8.4-10.2 MAGNESIUM 2.1 mg/dL 1.6-2.6 ANION GAP 8 mmol/L 5-15 .CREAT EGFR(CKD-EPI) >90 >60 Vital Signs: All taken on the encounter date This section contains inpatient and outpatient Vital Signs collected on the date of the Encounter. Date/Time Temperature Pulse Blood Pressure Respiratory Rate SP02 Pain Height Weight Body Mass Index Source Jul 04, 2024 04:27 PM 97.8 55 159/73 16 96 4 [facility] Jul 04, 2024 02:15 PM 56 138/64 16 97 4 [facility] Jul 04, 2024 12:40 PM 97.9 57 152/70 16 95 5 [facility] Jul 04, 2024 10:39 AM 59 132/74 16 96 4 [facility] Jul 04, 2024 08:45 AM 98 61 148/67 16 97 4 [facility] Social History: Smoking Status (Most [...] Smoking Status Comment Juan Manuel ity May 15, 2024 08:30 AM [facility] 15 YRS OR MORE [facility] May 06, 2023 11:30 AM [employer] FORMER USER [facility] May 06, 2023 11:30 AM VA-TOBACCO QUIT [...] VIEWS PA A ND LAT: FLACA WEAVER [id number] -[id number] M Exm Date: JUL 08, 2024@10:09 Req Phys: KATELYNN PERSON Pat Loc: 2K07-08-2024@11:49 Img Loc: MAIN X-RAY Service: [place] [address] (Case 24 COMPLETE) CHEST 2 VIEWS PA AND LAT (RAD Detailed) CPT:52336 Reason for Study: Uptrending WBC, POD 5 Clinical History: [place] IS NOT under investigation for COVID-19 or is COVID-19 negative POD 5, work up for uptrending wbc Responsible provider name and phone number to notify for critical findings if other than user placing the order and pager listed below: User placing orders pager: Katelynn Person LAST CREATININE 0.9 (07/07/24) Report Status: Verified Date Reported: JUL 08, 2024 Date Verified: JUL 08, 2024 Grinder Operator Tool E-Sig: Report: CHEST 2 VIEWS PA AND LAT HISTORY: Uptrending WBC, POD 5 COMPARISON: CT chest 11/12/2022 TECHNIQUE: Frontal and lateral views of the chest, submitted to the [place] [facility] (NTP) for interpretation. FINDINGS: Lungs: Clear. No focal consolidation. No pulmonary edema. Pleura: No pleural effusion or pneumothorax. Mediastinum: Normal size and contour. Bones: Unremarkable. Impression: No acute cardiopulmonary disease. READING PHYSICIAN: Sarbjit Vaughn M.D. -[id number] 07/08/2024 12:46 [facility] National Teleradiology Program [phone] (For Medical Practitioner Use Only) Attention Patients / Veterans: If you have questions or concerns about these test results, please contact your ordering provider or primary care team. Primary Interpreting Staff: RADIOLOGY,OUTSIDE SERVICE, Staff Physician / RADIOLOGY,OUTSIDE SERVICE [facility] Jul 08, 2024 10:[address] (AP) ABDOMEN/PE LVIS W CONTRAST: FLACA WEAVER [id number] -1950 M Exm Date: JUL 08, 2024@10:00 Req Phys: KATELYNN PERSON Pat Loc: 07-08-2024@12:07 Img Loc: CT IMAGING Service: [place] [address] (Case [id number] COMPLETE) CT (AP) ABDOMEN/PELVIS W CONTRAST(CT Detailed) CPT:23882 Contrast Media : Non-ionic Iodinated Reason for [...] PLASMA .CREAT EGFR(CKD-E >90 Ref: >=60 Allergies: (Thomas only) TERAZOSIN (Mar 13, 2015) Report Status: Verified Date Reported: JUL 08, 2024 Date Verified: JUL 08, 2024 Grinder Operator Tool E-Sig: Report: CT (AP) ABDOMEN/PELVIS W CONTRAST HISTORY: POD 5, Uptrending WBC - Concern for Abscess/other infection COMPARISON: June 21, 2024 TECHNIQUE: CT abdomen and pelvis was performed after intravenous contrast. Axial, sagittal and coronal reformatted images. The study was performed at the local [place] facility and images were sent to the [place] [facility]elerad[facility] (NTP) for interpretation. Number [...] as noted above READING PHYSICIAN: Celestino Blanc -[phone] 07/08/2024 13:04 [facility] [phone] (For Medical Practitioner Use Only) Attention Patients / Veterans: If you have questions or concerns about these test results, please contact your ordering provider or primary care team. Primary Interpreting Staff: RADIOLOGY,OUTSIDE SERVICE, Staff Physician / RADIOLOGY,OUTSIDE SERVICE [facility] Jun 22, 2024 11:49 AM ABSCESS DRAIN PLAC EMENT PERITONEAL (P): FLACA WEAVER [id number] -1950 M Exm Date: JUN 22, 2024@11:49 Req Phys: ANGELA HOLDEN Loc: [facility]06-22-2024@17:14 Img Loc: INTERVENTIONAL RADIOLOGY Service: [place] [address] (Case [id number] COMPLETE) IR PERITONEAL/RETROPERITONEAL PER(ANI Detailed) CPT:00885 Reason for Study: diverticulitis with abscess (Case 3570 COMPLETE) IR MOD SEDATION 10-22 MIN (ANI Detailed) CPT:32381 Clinical History: IS NOT under investigation for COVID-19 or is COVID-19 negative 73 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 please place abscess drain. Contact number for responsible provider who can be reached for any questions or notifications of critical findings: [phone] n/a LAST CREATININE 0.9 (06/21/24) Report Status: Verified Date Reported: JUN 22, 2024 Date Verified: JUN 22, 2024 Grinder Operator Tool E-Sig:/ES/LISA PENDLETON MD Report: PROCEDURES: Placement of [...] obtained. A pre-procedural Time-Out was performed per [facility] policy. The patient was placed in the supine position on the CT table. Preprocedural scan performed. The suprapubic region/lower abdominal wall was sterilely prepped and draped in the usual fashion.1% lidocaine without epinephrine was used for local anesthesia. Using real-time CT fluoroscopy, a 5 [place] Sokoosesis catheter was advanced into the collection in the left pelvis. A wire was coiled in the collection. The tract into the collection was dilated to accommodate the 12 [place]an locking pigtail drainage catheter. There was return [...] Primary Interpreting Staff: LISA PENDLETON MD, RADIOLOGIST (Grinder Operator Tool) /JRLISA [facility] Jun 22, 2024 11:[address] NEEDLE PLACEMEN T (P): FLACA WEAVER [id number] -1950 M Exm Date: JUN 22, 2024@11:48 Req Phys: ANGELA HOLDEN Amanda Loc: [facility]06-22-2024@17:14 Img Loc: CT IMAGING Service: [place] [address] (Case [id number] COMPLETE) CT SCAN FOR NEEDLE PLACEMENT (CT Detailed) CPT:23451 Reason for Study: l pelvic abscess drain Clinical History: Report Status: Verified Date Reported: JUN 22, 2024 Date Verified: JUN 22, 2024 Grinder Operator Tool E-Sig:/ES/LISA PENDLETON MD Report: PROCEDURES: Placement of [...] obtained. A pre-procedural Time-Out was performed per [facility] policy. The patient was placed in the supine position on the CT table. Preprocedural scan performed. The suprapubic region/lower abdominal wall was sterilely prepped and draped in the usual fashion.1% lidocaine without epinephrine was used for local anesthesia. Using real-time CT fluoroscopy, a 5 [place] Sokoosesis catheter was advanced into the collection in the left pelvis. A wire was coiled in the collection. The tract into the collection was dilated to accommodate the 12 [place] locking pigtail drainage catheter. There was return [...] Primary Interpreting Staff: LISA PENDLETON MD, RADIOLOGIST (Grinder Operator Tool) /JRT LISA PENDLETON [facility] Jun 21, 2024 06:[address] (AP) ABDOMEN/PE LVIS (P): FLACA WEAVER [id number] -1950 M Exm Date: JUN 21, 2024@18:09 Req Phys: DELIA MARTINEZ Pat Loc: [facility] EMERGENCY DEPT WALK-IN (Re Img Loc: CT IMAGING Service: [place] [address] (Case [id number] COMPLETE) CT (AP) ABDOMEN/PELVIS W CONTRAST(CT Detailed) CPT:91440 Contrast Media : Non-ionic Iodinated Reason for [...] PLASMA .CREAT EGFR(CKD-E >90 Ref: >=60 Allergies: (Thomas only) TERAZOSIN (Mar 13, 2015) Defer to [...] 21, 2024 Date Verified: JUN 21, 2024 Grinder Operator Tool E-Sig:/ALEXI/CARLOS A CUNNINGHAM DO Report: EXAMINATION: CT (AP) [...] Interpreting Staff: CARLOS A CUNNINGHAM DO, RADIOLOGIST (Grinder Operator Tool) /CARLOS A ROWELL [facility] Pathology Reports: +/- 30 [...] COSIGNER: URGENCY: STATUS: COMPLETED $APHDR Reporting Lab: [facility] [CLIA# [id number]] [place] [address] - - - - - - - [...] - PATHOLOGY REPORT Accession No. [id number] - - - - - - - [...] - PATHOLOGY REPORT Accession No. [id number] - - - - - - - [...] Second circumferential surgical margin, en face; E-F: Laundromat Worker diverticula; G: Laundromat Worker section of mesentery; H: Random sales representative printing supplies section of additional adipose tissue fragment. SS. [...] One colonic tissue ring, bisected transversely. SS. (D)SMcCoy MICROSCOPIC DESCRIPTION: Microscopic examination performed. DIAGNOSIS: 1. Colon, sigmoid, sigmoidectomy-- - Diverticulosis with perforation and focal abscess formation 2. Colon, anastomotic rings, excision-- - Viable colonic mucosa without diagnostic abnormality /alexi/ EDUARDO PALOMARES MD STAFF PATHOLOGIST Signed Jul 06, 2024@10:40 Performing Laboratory: Surgical Pathology Report Performed By: [facility] [CLIA# [id number]] [place] [address] $FTR - - - - - - [...] - - FLACA WEAVER STANDARD FORM 515 ID:[id number] SEX:M :1950 AGE: 73 LOC:[id number] ADM:Jun DX:DIVERTICULITIS PCP: Jatinder Cabrera /alexi/ EDUARDO PALOMARES MD STAFF PATHOLOGIST Signed: 07/06/2024 10:40 EDUARDO PALOMARES [facility] Jun 22, 2024 01:15 PM LR MICROBIOLOGY RE PORT: Reporting Lab: [facility] [CLIA# [id number]] [place] [address] Accession [UID]: [id number] [[id number]] Received: Jun 22, 2024@13:38 Collection sample: FLUID Collection date: Jun 22, 2024 13:15 Provider: ANGELA HOLDEN Comment on specimen: LLQ ABSCESS, RECEIVED IN ANAEROBIC TRANSPORT VIAL Test(s) ordered: GRAM STAIN.................... completed: Jun 22, 2024 15:03 CULTURE & SUSCEPTIBILITY...... completed: Jun 25, 2024 * BACTERIOLOGY FINAL REPORT => Jun 25, 2024 10:56 [facility] CODE: [id number] GRAM STAIN: DIRECT SMEAR of specimen before [...] -=--=--=--=--=--=--=-- Performing Laboratory: Bacteriology Report Performed By: [facility] [CLIA# [id number]] [place] [address] [facility] Jun 22, 2024 01:15 PM LR MICROBIOLOGY RE PORT: Reporting Lab: [facility] [CLIA# [id number]] [place] [address] Accession [UID]: [id number] [[id number]] Received: Jun 22, 2024@13:38 Collection sample: FLUID Collection date: Jun 22, 2024 13:15 Provider: ANGELA HOLDEN Comment on specimen: LLQ ABSCESS, RECEIVED IN ANAEROBIC TRANSPORT VIAL Test(s) ordered: ANAEROBIC CULTURE............. completed: Jun 28, 2024 * BACTERIOLOGY FINAL REPORT => Jun 28, 2024 10:08 TECH CODE: [id number] CULTURE RESULTS: HEAVY GROWTH MIXED ANAEROBES Comment: including the followin+ Bacteroides fragilis 4+ Bacteroides vulgatus 4+ Clostridium innocuum Beta-lactamase negative 4+ Bacteroides caccae 4+ Parvimonas micra 4+ Bacteroides uniformis 4+ Gemella morbillorum 4+ anaerobic small, Gram Positive Rods 4+ Bacteroides thetaiotaomicron Standard workup is now complete. Bacteriology Remark(s): THIS REPORT IS FINAL =--=--=--=--=--=--=--=--=--= --=--=--=--=--=--=--=--=--=- -=--=--=--=--=--=--=-- Performing Laboratory: Bacteriology Report Performed By: [facility] [CLIA# [id number]] [place] [address] [facility] Jun 21, 2024 06:12 PM LR MICROBIOLOGY RE PORT: Reporting Lab: [facility] [CLIA# [id number]] [place] [address] Accession [UID]: [id number] [[id number]] Received: Jun 21, 2024@18:12 Collection sample: BLOOD [...] -=--=--=--=--=--=--=-- Performing Laboratory: Bacteriology Report Performed By: [facility] [CLIA# [id number]] [place] [address] [facility] Jun 21, 2024 06:11 PM LR MICROBIOLOGY RE PORT: Reporting Lab: [facility] [CLIA# [id number]] [place] [address] Accession [UID]: [id number] [[id number]] Received: Jun 21, 2024@18:11 Collection sample: BLOOD [...] -=--=--=--=--=--=--=-- Performing Laboratory: Bacteriology Report Performed By: [facility] [CLIA# [id number]] [place] [address] [facility] Jun 08, 2024 11:00 AM LR MICROBIOLOGY RE PORT: Reporting Lab: [facility] [CLIA# [id number]] [place] [address] Accession [UID]: [id number] [[id number]] Received: Jun 08, 2024@11:00 Collection sample: URINE Collection date: Jun 08, 2024 11:00 Provider: MARYBETH POWELL Comment on specimen: urine Test(s) ordered: CULTURE & SUSCEPTIBILITY...... completed: Jun 09, 2024 * BACTERIOLOGY FINAL REPORT => Jun 09, 2024 19:12 TECH CODE: [id number] CULTURE RESULTS: ESCHERICHIA COLI - Quantity: >100,000 Comment: Cefazolin result can be used to infer susceptibility for cephalexin. Cefazolin interpretation applies only to uncomplicated cystitis. ANTIBIOTIC SUSCEPTIBILITY TEST RESULTS: ESCHERICHIA COLI : AMP/SULBACT................. .. R PIP-TAZO.................... .. S CEFAZOLIN................... .. S CEFTAZIDIME................. .. S CEFTRIAXONE................. .. S IMIPENEM.................... .. S ERTAPENEM................... .. S GENTAMICIN.................. .. S CIPROFLOXACIN............... .. S TRIMETH/SULFA............... .. S NITROFURANTOIN.............. .. S Bacteriology Remark(s): THIS REPORT IS FINAL =--=--=--=--=--=--=--=--=--= --=--=--=--=--=--=--=--=--=- -=--=--=--=--=--=--=-- Performing Laboratory: Bacteriology Report Performed By: [facility] [CLIA# [id number]] [place] [address] [facility]
--- OUTSIDE RECORDS SUMMARY | 2024-07-16 07:14 | XMS_ITS | Encounter Summary ---
Author Name [facility] [place] Organization [facility] [place] Address [address] [place] [address] Care Team Providers Care Satellite Project Site Monitor Name Role Phone JATINDER CABRERA Primary Care [...] PART A Sep 29, 2016 PART A [id number] JUDY WEAVER PATIENT Selected Encounter This section includes the information on record at [place] for the Encounter. Date/Time Encounter Type Encounter Description Reason Provider Source Jul 05, 2024 11:44 AM OT EVAL LOW COMPLEX 30 MIN OCCUPATIONAL THERAPY ICD-10-CM Z73.6 Limitation of activities due to disability RANJEET KEYES [facility] Encounter Template Text not used by ME Assessments - Encounter Diagnoses This section includes the primary and secondary diagnoses documented for the Encounter. Date/Time Primary/Secondary Diagnosis Diagnosis Name Provider Source Jul 05, 2024 12:03 PM PRIMARY Limitation of activities due to disability RANJEET KEYES [facility] Plan of Treatment: Future Appointments (+ 6 months) and Future Tests (+/- 45 days) The Plan of Treatment section includes future care activities for the patient from all [place] [facility] This section includes future appointments and future orders which are active, pending or scheduled. Future Appointments This section includes appointments that were scheduled to occur 6 months from the date of the Encounter, up to a maximum of 20 appointments. The data comes from all [facility] facilities. Appointment Date/Time Appointment Type Appointme nt Facility Name Jul 13, 2024 08:15 AM AMBULATORY - NONE [facility] Active, Pending, and Scheduled Orders This section includes a listing of several types of active, pending, and scheduled orders, including clinic medications orders, diagnostic test orders, procedure orders and consult orders; where the start date of the order is 45 days before the date of the Encounter or 45 days after the date of theEncounter. The data comes from all [facility]. Test Date/Time Test Type Test Details Facility Name May 28, 2024 12:00 AM Laboratory - Blood Bank Order TYPE & SCREEN - LAB BLOOD SP [facility] Jun 08, 2024 09:57 AM Laboratory - Chemi stry Order URINALYSIS URINE WC ONCE [facility] Jun 12, 2024 12:00 AM Laboratory - Chemi stry Order BNP PLASMA SP ONCE [facility] Jun 21, 2024 05:45 PM Laboratory - Blood Bank Order TYPE & SCREEN - LAB BLOOD [facility] Jul 03, 2024 12:00 AM Laboratory - Blood Bank Order TYPE & SCREEN - LAB BLOOD [facility] Jul 16, 2024 12:00 AM Laboratory - Chemi stry Order CBC BLOOD SP ONCE [facility] Jul 17, 2024 12:00 AM Laboratory - Chemi stry Order BASIC METABOLIC PANEL+MG PLASMA SP ONCE [facility] Lab Results: +/- 30 days of the encounter This section includes the Chemistry and Hematology Lab Results on record with [place] for the patient. Radiology Reports and Pathology Reports are provided separately, in subsequent sections. Lab Results This section contains the Chemistry/Hematology Results that were resulted 30 days before or 30 daysafter the date of the Encounter. Date/Time Source Result Type Result - Unit Interpretation Reference Range Comment Jul 10, 2024 07:16 AM [facility] PHOSPHORUS Specimen Type: PLASMA No comment entered. Ordering Provider: JUANCARLOS ECHOLS Report Released Date/Time: Jul 09, 2024 12:23 PM Reporting Lab: [facility] [address] Performing Lab: [facility] [address] PHOSPHORUS 3.0 mg/dL 2.3-4.3 Jul 10, 2024 07:16 AM [facility] BASIC METABOLIC PANEL+MG Specimen Type: PLASMA No comment entered. Ordering Provider: JUANCARLOS ECHOLS Report Released Date/Time: Jul 09, 2024 12:23 PM Reporting Lab: [facility] [address] Performing Lab: [facility] [address] CREATININE 0.7 mg/dL 0.7-1.2 UREA NITROGEN 27 mg/dL H 8-26 GLUCOSE 104 mg/dL H 70-100 SODIUM 133 mmol/L L 136-145 POTASSIUM 4.3 mmol/L 3.5-5.1 CHLORIDE 102 mmol/L 98-107 CO2 19 mmol/L L 22-29 CALCIUM 10.1 mg/dL 8.4-10.2 MAGNESIUM 1.9 mg/dL 1.6-2.6 ANION GAP 12 mmol/L 5-15 .CREAT EGFR(CKD-EPI) >90 >60 Jul 10, 2024 07:15 AM [facility] CBC Specimen Type: BLOOD No comment entered. Ordering Provider: JUANCARLOS ECHOLS S Report Released Date/Time: Jul 09, 2024 12:23 PM Reporting Lab: [facility] [address] Performing Lab: [facility] [address] WBC 18.8 H 4.0-11.0 RBC 5.08 4.60-6.20 HGB 15.9 g/dL 13.5-17.9 HCT 46.8 41.0-54.0 MCV 92.1 fL 80.0-100.0 MCH 31.3 pg 27.0-33.0 MCHC 34.0 g/dL 32.0-37.5 PLT 479 H 150-400 MPV 10.2 fL 9.1-13.0 RDW 13.7 11.5-14.5 Jul 09, 2024 07:08 AM [facility] CBC Specimen Type: BLOOD No comment entered. Ordering Provider: QUYNH WEISS AV Report Released Date/Time: Jul 08, 2024 06:18 PM Reporting Lab: [facility] [address] Performing Lab: [facility] [address] WBC 15.3 H 4.0-11.0 RBC 4.91 4.60-6.20 HGB 15.1 g/dL 13.5-17.9 HCT 45.7 41.0-54.0 MCV 93.1 fL 80.0-100.0 MCH 30.8 pg 27.0-33.0 MCHC 33.0 g/dL 32.0-37.5 PLT 443 H 150-400 MPV 10.0 fL 9.1-13.0 RDW 13.5 11.5-14.5 Jul 08, 2024 10:50 AM [facility] URINALYSIS Specimen Type: URINE No comment entered. Ordering Provider: KATELYNN PERSON Report Released Date/Time: Jul 08, 2024 08:41 AM Reporting Lab: [facility] [address] Performing Lab: [facility] [address] URINE COLOR YELLOW SPECIFIC GRAVITY >1.050 H [...] NEGATIVE NEGATIVE Jul 08, 2024 09:54 AM [facility] CBC Specimen Type: BLOOD Comment: Specimen received in Lab at: 0952 Ordering Provider: JUANCARLOS ECHOLS Report Released Date/Time: Jul 07, 2024 04:49 PM Reporting Lab: [facility] [address] Performing Lab: [facility] [address] WBC 17.5 H 4.0-11.0 RBC 4.88 4.60-6.20 HGB 14.9 g/dL 13.5-17.9 HCT 45.7 41.0-54.0 MCV 93.6 fL 80.0-100.0 MCH 30.5 pg 27.0-33.0 MCHC 32.6 g/dL 32.0-37.5 PLT 472 H 150-400 MPV 10.2 fL 9.1-13.0 RDW 13.7 11.5-14.5 Jul 08, 2024 09:54 AM [facility] PHOSPHORUS Specimen Type: PLASMA Comment: Specimen received in Lab at: 0952 Ordering Provider: JUANCARLOS ECHOLS Report Released Date/Time: Jul 07, 2024 04:49 PM Reporting Lab: [facility] [address] Performing Lab: [facility] [address] PHOSPHORUS 2.6 mg/dL 2.3-4.3 Jul 08, 2024 09:54 AM [facility] BASIC METABOLIC PANEL+MG Specimen Type: PLASMA Comment: Specimen received in Lab at: 0952 Ordering Provider: JUANCARLOS ECHOLS Report Released Date/Time: Jul 07, 2024 04:49 PM Reporting Lab: [facility] [address] Performing Lab: [facility] [address] CREATININE 0.9 mg/dL 0.7-1.2 UREA NITROGEN 26 mg/dL 8-26 GLUCOSE 128 mg/dL H 70-100 SODIUM 134 mmol/L L 136-145 POTASSIUM 3.4 mmol/L L 3.5-5.1 CHLORIDE 100 mmol/L 98-107 CO2 24 mmol/L 22-29 CALCIUM 9.8 mg/dL 8.4-10.2 MAGNESIUM 1.8 mg/dL 1.6-2.6 ANION GAP 10 mmol/L 5-15 .CREAT EGFR(CKD-EPI) >90 >60 Jul 07, 2024 02:00 PM [facility] C DIFF PANEL Specimen Type: FECES No comment entered. Ordering Provider: JEVON ZAZUETA Report Released Date/Time: Jul 07, 2024 12:26 PM Reporting Lab: [facility] [address] Performing Lab: [facility] [address] C DIFF TOX B GENE PCR NEGATIVE Negative Jul 07, 2024 07:41 AM [facility] PHOSPHORUS Specimen Type: PLASMA No comment entered. Ordering Provider: JEVON ZAZUETA Report Released Date/Time: Jul 06, 2024 03:44 PM Reporting Lab: [facility] [address] Performing Lab: [facility] [address] PHOSPHORUS 3.1 mg/dL 2.3-4.3 Jul 07, 2024 07:41 AM [facility] BASIC METABOLIC PANEL+MG Specimen Type: PLASMA No comment entered. Ordering Provider: JEVON ZAZUETA Report Released Date/Time: Jul 06, 2024 03:44 PM Reporting Lab: [facility] [address] Performing Lab: [facility] [address] CREATININE 0.9 mg/dL 0.7-1.2 UREA NITROGEN 20 mg/dL 8-26 GLUCOSE 157 mg/dL H 70-100 SODIUM 136 mmol/L 136-145 POTASSIUM 3.7 mmol/L 3.5-5.1 CHLORIDE 102 mmol/L 98-107 CO2 21 mmol/L L 22-29 CALCIUM 9.8 mg/dL 8.4-10.2 MAGNESIUM 1.9 mg/dL 1.6-2.6 ANION GAP 13 mmol/L 5-15 .CREAT EGFR(CKD-EPI) >90 >60 Jul 07, 2024 07:40 AM [facility] CBC Specimen Type: BLOOD No comment entered. Ordering Provider: JEVON ZAZUETA Report Released Date/Time: Jul 06, 2024 03:44 PM Reporting Lab: [facility] [address] Performing Lab: [facility] [address] WBC 21.2 H 4.0-11.0 RBC 5.09 4.60-6.20 HGB 15.9 g/dL 13.5-17.9 HCT 48.3 41.0-54.0 MCV 94.9 fL 80.0-100.0 MCH 31.2 pg 27.0-33.0 MCHC 32.9 g/dL 32.0-37.5 PLT 500 H 150-400 MPV 10.3 fL 9.1-13.0 RDW 13.6 11.5-14.5 Jul 06, 2024 07:21 AM [facility] CBC Specimen Type: BLOOD No comment entered. Ordering Provider: JEVON ZAZUETA Report Released Date/Time: Jul 05, 2024 01:22 PM Reporting Lab: [facility] [address] Performing Lab: [facility] [address] WBC 18.0 H 4.0-11.0 RBC 4.83 4.60-6.20 HGB 14.6 g/dL 13.5-17.9 HCT 45.5 41.0-54.0 MCV 94.2 fL 80.0-100.0 MCH 30.2 pg 27.0-33.0 MCHC 32.1 g/dL 32.0-37.5 PLT 368 150-400 MPV 10.4 fL 9.1-13.0 RDW 13.6 11.5-14.5 Jul 06, 2024 07:21 AM [facility] PHOSPHORUS Specimen Type: PLASMA No comment entered. Ordering Provider: JEVON ZAZUETA Report Released Date/Time: Jul 05, 2024 01:22 PM Reporting Lab: [facility] [address] Performing Lab: [facility] [address] PHOSPHORUS 3.6 mg/dL 2.3-4.3 Jul 06, 2024 07:21 AM [facility] BASIC METABOLIC PANEL+MG Specimen Type: PLASMA No comment entered. Ordering Provider: JEVON ZAZUETA Report Released Date/Time: Jul 05, 2024 01:22 PM Reporting Lab: [facility] [address] Performing Lab: [facility] [address] CREATININE 0.7 mg/dL 0.7-1.2 UREA NITROGEN 12 mg/dL 8-26 GLUCOSE 108 mg/dL H 70-100 SODIUM 138 mmol/L 136-145 POTASSIUM 3.4 mmol/L L 3.5-5.1 CHLORIDE 104 mmol/L 98-107 CO2 20 mmol/L L 22-29 CALCIUM 9.3 mg/dL 8.4-10.2 MAGNESIUM 1.9 mg/dL 1.6-2.6 ANION GAP 14 mmol/L 5-15 .CREAT EGFR(CKD-EPI) >90 >60 Jul 05, 2024 07:17 AM [facility] MAGNESIUM Specimen Type: PLASMA No comment entered. Ordering Provider: JUANCARLOS ECHOLS Report Released Date/Time: Jul 04, 2024 09:39 AM Reporting Lab: [facility] [address] Performing Lab: [facility] [address] MAGNESIUM 2.0 mg/dL 1.6-2.6 Jul 05, 2024 07:17 AM [facility] PHOSPHORUS Specimen Type: PLASMA No comment entered. Ordering Provider: JUANCARLOS ECHOLS S Report Released Date/Time: Jul 04, 2024 09:39 AM Reporting Lab: [facility] [address] Performing Lab: [facility] [address] PHOSPHORUS 2.0 mg/dL L 2.3-4.3 Jul 05, 2024 07:17 AM [facility] BASIC METABOLIC PANEL+MG Specimen Type: PLASMA No comment entered. Ordering Provider: JUANCARLOS ECHOLS S Report Released Date/Time: Jul 04, 2024 09:39 AM Reporting Lab: [facility] [address] Performing Lab: [facility] [address] CREATININE 0.7 mg/dL 0.7-1.2 UREA NITROGEN 12 mg/dL 8-26 GLUCOSE 84 mg/dL 70-100 SODIUM 135 mmol/L L 136-145 POTASSIUM 3.8 mmol/L 3.5-5.1 CHLORIDE 104 mmol/L 98-107 CO2 24 mmol/L 22-29 CALCIUM 9.3 mg/dL 8.4-10.2 MAGNESIUM 2.0 mg/dL 1.6-2.6 ANION GAP 7 mmol/L 5-15 .CREAT EGFR(CKD-EPI) >90 >60 Jul 05, 2024 07:16 AM [facility] CBC Specimen Type: BLOOD No comment entered. Ordering Provider: JUANCARLOS ECHOLS S Report Released Date/Time: Jul 04, 2024 09:39 AM Reporting Lab: [facility] [address] Performing Lab: [facility] [address] WBC 18.3 H 4.0-11.0 RBC 4.49 L 4.60-6.20 HGB 14.1 g/dL 13.5-17.9 HCT 43.4 41.0-54.0 MCV 96.7 fL 80.0-100.0 MCH 31.4 pg 27.0-33.0 MCHC 32.5 g/dL 32.0-37.5 PLT 317 150-400 MPV 10.0 fL 9.1-13.0 RDW 13.9 11.5-14.5 Jul 04, 2024 07:17 AM [facility] PHOSPHORUS Specimen Type: PLASMA No comment entered. Ordering Provider: GABINO CAMERON Report Released Date/Time: Jul 03, 2024 06:31 PM Reporting Lab: [facility] [address] Performing Lab: [facility] [address] PHOSPHORUS 2.8 mg/dL 2.3-4.3 Jul 04, 2024 07:17 AM [facility] BASIC METABOLIC PANEL+MG Specimen Type: PLASMA No comment entered. Ordering Provider: GABINO CAMERON Report Released Date/Time: Jul 03, 2024 06:31 PM Reporting Lab: [facility] [address] Performing Lab: [facility] [address] CREATININE 0.7 mg/dL 0.7-1.2 UREA NITROGEN 16 mg/dL 8-26 GLUCOSE 129 mg/dL H 70-100 SODIUM 137 mmol/L 136-145 POTASSIUM 3.7 mmol/L 3.5-5.1 CHLORIDE 107 mmol/L 98-107 CO2 22 mmol/L 22-29 CALCIUM 9.0 mg/dL 8.4-10.2 MAGNESIUM 1.9 mg/dL 1.6-2.6 ANION GAP 8 mmol/L 5-15 .CREAT EGFR(CKD-EPI) >90 >60 Jul 04, 2024 07:16 AM [facility] CBC Specimen Type: BLOOD No comment entered. Ordering Provider: GABINO CAMERON Report Released Date/Time: Jul 03, 2024 06:31 PM Reporting Lab: [facility] [address] Performing Lab: [facility] [address] WBC 20.6 H 4.0-11.0 RBC 4.63 4.60-6.20 HGB 14.2 g/dL 13.5-17.9 HCT 43.4 41.0-54.0 MCV 93.7 fL 80.0-100.0 MCH 30.7 pg 27.0-33.0 MCHC 32.7 g/dL 32.0-37.5 PLT 329 150-400 MPV 10.4 fL 9.1-13.0 RDW 13.8 11.5-14.5 Jul 04, 2024 07:16 AM [facility] CBC & DIFF Specimen Type: BLOOD Comment: Manual Differential Performed Ordering Provider: GABINO CAMERON Report Released Date/Time: Jul 03, 2024 06:31 PM Reporting Lab: [facility] [address] Performing Lab: [facility] [address] WBC 20.6 H 4.0-11.0 RBC 4.63 4.60-6.20 [...] MORPHOLOGY PRESENT Jul 04, 2024 07:15 AM [facility] BNP Specimen Type: PLASMA No comment entered. Ordering Provider: GABINO CAMERON Report Released Date/Time: Jul 03, 2024 06:31 PM Reporting Lab: [facility] [address] Performing Lab: [facility] [address] BNP 292 pg/mL H <99 Jul 03, 2024 10:32 PM [facility] FINGERSTICK GLUCOSE Specimen Type: BLOOD Comment: Save Result Nurse Notified Ordering Provider: KATELYNN PERSON Report Released Date/Time: Jul 03, 2024 10:50 PM Reporting Lab: [facility] [address] Performing Lab: [facility] [address] FINGERSTICK GLUCOSE 126 mg/dL H 70-100 Jul 03, 2024 05:33 PM [facility] GLUCOSE Specimen Type: BLOOD Comment: Save Result Nurse Notified Ordering Provider: KATELYNN PERSON Report Released Date/Time: Jul 03, 2024 05:46 PM Reporting Lab: [facility] [address] Performing Lab: [facility] [address] FINGERSTICK GLUCOSE 141 mg/dL H 70-100 Jul 03, 2024 02:31 PM [facility] POC ABG/ELECTROLYTES Specimen Type: ARTERIAL BLOOD Comment: FIO2 = 97% Patient Temp: 36.0 C Sample Type = ARTERIAL Ordering Provider: MAZIN ARREDONDO Report Released Date/Time: Jul 03, 2024 01:48 PM Reporting Lab: [facility] [address] Performing Lab: [facility] [address] POC PH 7.387 7.35-7.45 POC PCO2 34.4 [...] H 80.0-105.0 Jul 03, 2024 01:05 PM [facility] POC ABG/ELECTROLYTES Specimen Type: ARTERIAL BLOOD Comment: FIO2 = 53% Patient Temp: 36.2 C Sample Type = ARTERIAL Ordering Provider: MAZIN ARREDONDO Report Released Date/Time: Jul 03, 2024 01:48 PM Reporting Lab: [facility] [address] Performing Lab: [facility] [address] POC PH 7.280 L 7.35-7.45 POC PCO2 [...] mm[Hg] 80.0-105.0 Jul 03, 2024 06:15 AM [facility] URINALYSIS Specimen Type: URINE No comment entered. Ordering Provider: MARYBETH POWELL Report Released Date/Time: Jun 12, 2024 04:01 PM Reporting Lab: [facility] [address] Performing Lab: [facility] [address] URINE COLOR YELLOW SPECIFIC GRAVITY 1.031 1.003-1.03 [...] 250 NEGATIVE Jul 03, 2024 06:13 AM [facility] CBC Specimen Type: BLOOD No comment entered. Ordering Provider: MARYBETH POWELL Report Released Date/Time: Jun 12, 2024 03:59 PM Reporting Lab: [facility] [address] Performing Lab: [facility] [address] WBC 15.8 H 4.0-11.0 RBC 5.11 4.60-6.20 HGB 16.1 g/dL 13.5-17.9 HCT 49.1 41.0-54.0 MCV 96.1 fL 80.0-100.0 MCH 31.5 pg 27.0-33.0 MCHC 32.8 g/dL 32.0-37.5 PLT 357 150-400 MPV 9.8 fL 9.1-13.0 RDW 13.7 11.5-14.5 Jun 24, 2024 09:50 AM [facility] BASIC METABOLIC PANEL+MG Specimen Type: PLASMA Comment: Specimen received in Lab at: 0948 Ordering Provider: JEVON ZAZUETA Report Released Date/Time: Jun 23, 2024 06:07 PM Reporting Lab: [facility] [address] Performing Lab: [facility] [address] CREATININE 0.8 mg/dL 0.7-1.2 UREA NITROGEN 13 mg/dL 8-26 GLUCOSE 135 mg/dL H 70-100 SODIUM 135 mmol/L L 136-145 POTASSIUM 3.6 mmol/L 3.5-5.1 CHLORIDE 103 mmol/L 98-107 CO2 24 mmol/L 22-29 CALCIUM 9.2 mg/dL 8.4-10.2 MAGNESIUM 1.9 mg/dL 1.6-2.6 ANION GAP 8 mmol/L 5-15 .CREAT EGFR(CKD-EPI) >90 >60 Jun 24, 2024 09:50 AM [facility] CBC Specimen Type: BLOOD Comment: Specimen received in Lab at: 0948 Ordering Provider: JEVON ZAZUETA Report Released Date/Time: Jun 23, 2024 06:07 PM Reporting Lab: [facility] [address] Performing Lab: [facility] [address] WBC 15.5 H 4.0-11.0 RBC 4.93 4.60-6.20 HGB 15.2 g/dL 13.5-17.9 HCT 46.5 41.0-54.0 MCV 94.3 fL 80.0-100.0 MCH 30.8 pg 27.0-33.0 MCHC 32.7 g/dL 32.0-37.5 PLT 223 150-400 MPV 11.4 fL 9.1-13.0 RDW 13.9 11.5-14.5 Jun 23, 2024 07:52 AM [facility] COMPREHENSIVE METABOLIC PANEL+MG Specimen Type: PLASMA No comment entered. Ordering Provider: JEVON ZAZUETA Report Released Date/Time: Jun 22, 2024 05:51 PM Reporting Lab: [facility] [address] Performing Lab: [facility] [address] CREATININE 0.7 mg/dL 0.7-1.2 UREA NITROGEN 16 [...] >90 >60 Jun 23, 2024 07:52 AM [facility] CBC & DIFF Specimen Type: BLOOD Comment: Automated Differential Performed Ordering Provider: JEVON ZAZUETA Report Released Date/Time: Jun 22, 2024 05:51 PM Reporting Lab: [facility] [address] Performing Lab: [facility] [address] WBC 14.9 H 4.0-11.0 RBC 5.09 4.60-6.20 [...] 0.1 0.0-0.1 Jun 22, 2024 06:10 PM [facility] CBC Specimen Type: BLOOD No comment entered. Ordering Provider: JEVON ZAZUETA Report Released Date/Time: Jun 22, 2024 05:51 PM Reporting Lab: [facility] [address] Performing Lab: [facility] [address] WBC 16.9 H 4.0-11.0 RBC 5.28 4.60-6.20 HGB 16.9 g/dL 13.5-17.9 HCT 50.4 41.0-54.0 MCV 95.5 fL 80.0-100.0 MCH 32.0 pg 27.0-33.0 MCHC 33.5 g/dL 32.0-37.5 PLT 223 150-400 MPV 10.9 fL 9.1-13.0 RDW 14.0 11.5-14.5 Jun 22, 2024 06:10 PM [facility] COMPREHENSIVE METABOLIC PANEL+MG Specimen Type: PLASMA No comment entered. Ordering Provider: JEVON ZAZUETA Report Released Date/Time: Jun 22, 2024 05:51 PM Reporting Lab: [facility] [address] Performing Lab: [facility] [address] CREATININE 0.7 mg/dL 0.7-1.2 UREA NITROGEN 17 [...] >90 >60 Jun 21, 2024 06:48 PM [facility] URINALYSIS Specimen Type: URINE No comment entered. Ordering Provider: DELIA MARTINEZ Report Released Date/Time: Jun 21, 2024 05:45 PM Reporting Lab: [facility] [address] Performing Lab: [facility] [address] URINE COLOR YELLOW SPECIFIC GRAVITY 1.041 H [...] 500 NEGATIVE Jun 21, 2024 05:34 PM [facility] POC CREATININE Specimen Type: BLOOD No comment entered. Ordering Provider: DELIA MARTINEZ Report Released Date/Time: Jun 21, 2024 06:07 PM Reporting Lab: [facility] [address] Performing Lab: [facility] [address] POC CREATININE 1.1 mg/dL 0.6-1.3 Jun 21, 2024 05:30 PM [facility] POC ABG/LACTATE Specimen Type: VENOUS BLOOD No comment entered. Ordering Provider: DELIA MARTINEZ Report Released Date/Time: Jun 21, 2024 06:07 PM Reporting Lab: [facility] [address] Performing Lab: [facility] [address] POC PH 7.470 H 7.31-7.41 POC PCO2 31.2 mm[Hg] L 41.00-51 .0 0 POC PO2 46 mm[Hg] H 35.0-40.0 POC TCO2 24 mmol/L 24.0-29.0 POC HCO3 22.7 mmol/L L 23.0-28.0 POC BE ECT -1 mmol/L POC SO2 85 H 70-75 POC LACTATE 1.85 mmol/L 0.90-1.70 Jun 21, 2024 05:24 PM [facility] PROTHROMBIN TIME/INR Specimen Type: PLASMA No comment entered. Ordering Provider: DELIA MARTINEZ Report Released Date/Time: Jun 21, 2024 05:30 PM Reporting Lab: [facility] [address] Performing Lab: [facility] [address] .INR 1.2 H 0.8-1.1 .PT 13.9 s H 9.4-12.5 Jun 21, 2024 05:24 PM [facility] LIPASE Specimen Type: PLASMA No comment entered. Ordering Provider: DELIA MARTINEZ Report Released Date/Time: Jun 21, 2024 05:30 PM Reporting Lab: [facility] [address] Performing Lab: [facility] [address] LIPASE 32 U/L <60 Jun 21, 2024 05:24 PM [facility] EXTRA GOLD GEL TUBE Specimen Type: SERUM No comment entered. Ordering Provider: DELIA MARTINEZ Report Released Date/Time: Jun 21, 2024 05:41 PM Reporting Lab: [facility] [address] Performing Lab: [facility] [address] EXTRA GOLD GEL TUBE RECEIVED Jun 21, 2024 05:24 PM [facility] COMPREHENSIVE METABOLIC PANEL+MG Specimen Type: PLASMA No comment entered. Ordering Provider: DELIA MARTINEZ Report Released Date/Time: Jun 21, 2024 05:30 PM Reporting Lab: [facility] [address] Performing Lab: [facility] [address] CREATININE 0.9 mg/dL 0.7-1.2 UREA NITROGEN 29 [...] mg/dL <0.5 Jun 21, 2024 05:24 PM [facility] CBC & DIFF Specimen Type: BLOOD Comment: Manual Differential Performed Ordering Provider: DELIA MARTINEZ Report Released Date/Time: Jun 21, 2024 05:30 PM Reporting Lab: [facility] [address] Performing Lab: [facility] [address] WBC 21.3 H 4.0-11.0 RBC 5.48 4.60-6.20 [...] MORPHOLOGY PRESENT Jun 08, 2024 10:59 AM [facility] PROTHROMBIN TIME/INR Specimen Type: PLASMA No comment entered. Ordering Provider: MARYBETH POWELL Report Released Date/Time: May 28, 2024 09:02 AM Reporting Lab: [facility] [id number] Performing Lab: [facility] [id number] .INR 1.0 0.8-1.1 .PT 11.8 s 9.4-12.5 Jun 08, 2024 10:59 AM [facility] HEMOGLOBIN A1C Specimen Type: BLOOD Comment: Values [...] May 28, 2024 09:02 AM Reporting Lab: [facility] [id number] Performing Lab: [facility] [id number] HEMOGLOBIN A1C 4.9 4.0-6.0 Jun 08, 2024 10:59 AM [facility] CBC Specimen Type: BLOOD No comment entered. Ordering Provider: MARYBETH POWELL Report Released Date/Time: May 28, 2024 09:02 AM Reporting Lab: [facility] [phone] Performing Lab: [facility] [address] WBC 16.1 H 4.0-11.0 RBC 5.02 4.60-6.20 HGB 16.0 g/dL 13.5-17.9 HCT 47.1 41.0-54.0 MCV 93.8 fL 80.0-100.0 MCH 31.9 pg 27.0-33.0 MCHC 34.0 g/dL 32.0-37.5 PLT 228 150-400 MPV 10.3 fL 9.1-13.0 RDW 14.6 H 11.5-14.5 Jun 08, 2024 10:59 AM [facility] BASIC METABOLIC PANEL+MG Specimen Type: PLASMA No comment entered. Ordering Provider: MARYBETH POWELL Report Released Date/Time: May 28, 2024 09:02 AM Reporting Lab: [facility] [id number] Performing Lab: [facility] [phone] CREATININE 0.9 mg/dL 0.7-1.2 UREA NITROGEN 15 [...] Height Weight Body Mass Index Source Jul 05, 2024 08:50 PM 7 [facility] Jul 05, 2024 05:00 PM 6 [facility] Jul 05, 2024 04:58 PM 7 [facility] Jul 05, 2024 04:51 PM 98.5 97 147/88 16 95 7 [facility] Jul 05, 2024 03:20 PM 5 [facility] Social History: Smoking Status (Most current) and Tobacco Use (All prior to encounter date) This section includes the most current, and the historical, smoking and tobacco- related health factors from the [facility] where the Encounter took place. Current Smoking Status This section includes the most current smoking, or tobacco-related health factor, from the [place] facility where the Encounter took place. 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 [facility] May 06, 2023 11:30 AM VA-TOBACCO QUIT [...] Mar 23, 2016 CLINICAL WARNING TIM [facility]ON [facility] Radiology Reports: +/- [...] VIEWS PA A ND LAT: FLACA WEAVER [id number] -1950 M Exm Date: JUL 08, 2024@10:09 Req Phys: KATELYNN PERSON Pat Loc: 2KG/07-08-2024@11:49 Img Loc: MAIN X-RAY Service: [place] [address] (Case 24 COMPLETE) CHEST 2 VIEWS PA AND LAT (RAD Detailed) CPT:53765 Reason for Study: Uptrending WBC, POD 5 Clinical History: [place] IS NOT under investigation for COVID-19 or is COVID-19 negative POD 5, work up for uptrending wbc Responsible provider name and phone number to notify for critical findings if other than user placing the order and pager listed below: User placing orders pager: Katelynn Person LAST CREATININE 0.9 (07/07/24) Report Status: Verified Date Reported: JUL 08, 2024 Date Verified: JUL 08, 2024 Clay Pigeon Setter E-Sig: Report: CHEST 2 VIEWS PA AND [...] cardiopulmonary disease. READING PHYSICIAN: Sarbjit Vaughn M.D. -[phone] 07/08/2024 12:46 EST [facility] National Teleradiology Program [phone] (For Medical Practitioner Use Only) Attention Patients / Veterans: If you have questions or concerns about these test results, please contact your ordering provider or primary care team. Primary Interpreting Staff: RADIOLOGY,OUTSIDE SERVICE, Staff Physician / RADIOLOGY,OUTSIDE SERVICE [facility] Jul 08, 2024 10:[address] (AP) ABDOMEN/PE LVIS W CONTRAST: FLACA WEAVER [id number] -1950 M Exm Date: JUL 08, 2024@10:00 Req Phys: KATELYNN PERSON Pat Loc: 2KG/07-08-2024@12:07 Img Loc: CT IMAGING Service: [place] [address] (Case 22 COMPLETE) CT (AP) ABDOMEN/PELVIS W CONTRAST(CT Detailed) CPT:19801 Contrast Media : Non-ionic Iodinated Reason for [...] PLASMA .CREAT EGFR(CKD-E >90 Ref: >=60 Allergies: ([place] only) TERAZOSIN (Mar 13, 2015) Report Status: Verified Date Reported: JUL 08, 2024 Date Verified: JUL 08, 2024 Clay Pigeon Setter E-Sig: Report: CT (AP) ABDOMEN/PELVIS W CONTRAST [...] as noted above READING PHYSICIAN: Celestino Blanc -[phone] 07/08/2024 13:04 [facility] National Teleradiology Program [phone] (For Medical Practitioner Use Only) Attention Patients / Veterans: If you have questions or concerns about these test results, please contact your ordering provider or primary care team. Primary Interpreting Staff: RADIOLOGY,OUTSIDE SERVICE, Staff Physician / RADIOLOGY,OUTSIDE SERVICE [facility] Jun 22, 2024 11:49 AM ABSCESS DRAIN PLAC EMENT PERITONEAL (P): FLACA WEAVER [id number] -1950 M Exm Date: JUN 22, 2024@11:49 Req Phys: ANGELA HOLDEN Loc: [facility]06-22-2024@17:14 Img Loc: INTERVENTIONAL RADIOLOGY Service: [facility] [place] [address] (Case [id number] COMPLETE) IR PERITONEAL/RETROPERITONEAL PER(ANI Detailed) CPT:09155 Reason for Study: diverticulitis with abscess (Case 3570 COMPLETE) IR MOD SEDATION 10-22 MIN (ANI Detailed) CPT:76523 Clinical History: IS NOT under investigation for COVID-19 or is COVID-19 negative 73 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 please place abscess drain. Contact number for responsible provider who can be reached for any questions or notifications of critical findings: [phone] n/a LAST CREATININE 0.9 (06/21/24) Report Status: Verified Date Reported: JUN 22, 2024 Date Verified: JUN 22, 2024 Clay Pigeon Setter E-Sig:/ES/LISA PENDLETON MD Report: PROCEDURES: Placement of [...] obtained. A pre-procedural Time-Out was performed per [facility] policy. The patient was placed in the supine position on the CT table. Preprocedural scan performed. The suprapubic region/lower abdominal wall was sterilely prepped and draped in the usual fashion.1% lidocaine without epinephrine was used for local anesthesia. Using real-time CT fluoroscopy, a 5 [place] Islander Garden Mateesis catheter was advanced into the collection in the left pelvis. A wire was coiled in the collection. The tract into the collection was dilated to accommodate the 12 [place] Islander locking pigtail drainage catheter. There was return [...] Primary Interpreting Staff: LISA PENDLETON MD, RADIOLOGIST (Clay Pigeon Setter) /JRT LISA PENDLETON [facility] Jun 22, 2024 11:[address] NEEDLE PLACEMEN T (P): FLACA WEAVER [id number] -1950 M Exm Date: JUN 22, 2024@11:48 Req Phys: ADINAANGELA Mcfarlane Amanda Loc: [facility]/06-22-2024@17:14 Img Loc: CT IMAGING Service: [place] [address] (Case [id number] COMPLETE) CT SCAN FOR NEEDLE PLACEMENT (CT Detailed) CPT:89467 Reason for Study: l pelvic abscess drain Clinical History: Report Status: Verified Date Reported: JUN 22, 2024 Date Verified: JUN 22, 2024 Clay Pigeon Setter E-Sig:/ES/LISA PENDLETON MD Report: PROCEDURES: Placement of abscess drainage catheter with CT guidance CLINICAL HISTORY: Recurrent pericolonic abscess/colovesicular fistula. Abscess drain placement requested prior to planned surgery. COMPARISONS: 06/21/2024 CT examination ATTENDING RADIOLOGIST: iLsa Pendleton M.D. Medications: The patient was placed on continuous monitoring. Moderate sedation was administered with 150 mcg fentanyl and 3 mg of Versed.. The patient remained stable throughout the procedure. PROCEDURE: The patient/medical decision-maker understood the limitations, alternatives, and risks of the procedure and requested the procedure be performed. Both iMed and oral consent were obtained. A pre-procedural Time-Out was performed per [facility] policy. The patient was placed in the supine position on the CT table. Preprocedural scan performed. The suprapubic region/lower abdominal wall was sterilely prepped and draped in the usual fashion.1% lidocaine without epinephrine was used for local anesthesia. Using real-time CT fluoroscopy, a 5 [place] Garden Mateesis catheter was advanced into the collection in the left pelvis. A wire was coiled in the collection. The tract into the collection was dilated to accommodate the 12 [place] locking pigtail drainage catheter. There was return [...] Primary Interpreting Staff: LISA PENDLETON MD, RADIOLOGIST (Clay Pigeon Setter) /JRT LISA PENDLETON [facility] Jun 21, 2024 06:[address] (AP) ABDOMEN/PE LVIS (P): FLACA WEAVER [id number] -1950 M Exm Date: JUN 21, 2024@18:09 Req Phys: DELIA MARTINEZ Loc: [facility] EMERGENCY DEPT WALK-IN (Re Img Loc: CT IMAGING Service: [place] [address] (Case [id number] COMPLETE) CT (AP) ABDOMEN/PELVIS W CONTRAST(CT Detailed) CPT:55950 Contrast Media : Non-ionic Iodinated Reason for [...] PLASMA .CREAT EGFR(CKD-E >90 Ref: >=60 Allergies: ([place] only) TERAZOSIN (Mar 13, 2015) Defer to [...] 21, 2024 Date Verified: JUN 21, 2024 Clay Pigeon Setter E-Sig:/ALEXI/CARLOS A CUNNINGHAM DO Report: EXAMINATION: CT [...] Interpreting Staff: CARLOS A CUNNINGHAM DO, RADIOLOGIST (Clay Pigeon Setter) /CARLOS A ROWELL [facility] Pathology Reports: +/- 30 days [...] COSIGNER: URGENCY: STATUS: COMPLETED $APHDR Reporting Lab: [facility] [CLIA# [id number]] [place] [address] - - - - - - - [...] - PATHOLOGY REPORT Accession No. [id number] - - - - - - - [...] - PATHOLOGY REPORT Accession No. [id number] - - - - - - - [...] Second circumferential surgical margin, en face; E-F: Wastewater Plant Operator diverticula; G: Wastewater Plant Operator section of mesentery; H: Random hospital sales representative section of additional adipose tissue fragment. [...] Performing Laboratory: Surgical Pathology Report Performed By: [facility] [CLIA# [id number]] [place] [address] $FTR - - - - - - [...] - - FLACA WEAVER STANDARD FORM 515 ID:[id number] SEX:M :1950 AGE: 73 LOC:91599 ADM:Jun DX:DIVERTICULITIS PCP: Jatinder Cabrera /alexi/ EDUARDO PALOMARES MD STAFF PATHOLOGIST Signed: 07/06/2024 10:40 EDUARDO PALOMARES [facility] Jun 22, 2024 01:15 PM LR MICROBIOLOGY RE PORT: Reporting Lab: [facility] [CLIA# [id number]] [place] [address] Accession [UID]: [id number] [[id number]] Received: Jun 22, 2024@13:38 Collection sample: FLUID Collection date: Jun 22, 2024 13:15 Provider: ANGELA HOLDEN Comment on specimen: LLQ ABSCESS, RECEIVED IN ANAEROBIC TRANSPORT VIAL Test(s) ordered: GRAM STAIN.................... completed: Jun 22, 2024 15:03 CULTURE & SUSCEPTIBILITY...... completed: Jun 25, 2024 * BACTERIOLOGY FINAL REPORT => Jun 25, 2024 10:56 TECH CODE: [id number] GRAM STAIN: DIRECT SMEAR of specimen before [...] -=--=--=--=--=--=--=-- Performing Laboratory: Bacteriology Report Performed By: [facility] [CLIA# [id number]] [place] [address] [facility] Jun 22, 2024 01:15 PM LR MICROBIOLOGY RE PORT: Reporting Lab: [facility] [CLIA# [id number]] [place] [address] Accession [UID]: [id number] [[id number]] Received: Jun 22, 2024@13:38 Collection sample: FLUID Collection date: Jun 22, 2024 13:15 Provider: ANGELA OHLDEN Comment on specimen: LLQ ABSCESS, RECEIVED IN ANAEROBIC TRANSPORT VIAL Test(s) ordered: ANAEROBIC CULTURE............. completed: Jun 28, 2024 * BACTERIOLOGY FINAL REPORT => Jun 28, 2024 10:08 TECH CODE: [id number] CULTURE RESULTS: HEAVY GROWTH MIXED ANAEROBES Comment: including the followin+ Bacteroides fragilis 4+ Bacteroides vulgatus 4+ Clostridium innocuum Beta-lactamase negative 4+ Bacteroides caccae 4+ Parvimonas micra 4+ Bacteroides uniformis 4+ Gemella morbillorum 4+ anaerobic small, Gram Positive Rods 4+ Bacteroides thetaiotaomicron Standard workup is now complete. Bacteriology Remark(s): THIS REPORT IS FINAL =--=--=--=--=--=--=--=--=--= --=--=--=--=--=--=--=--=--=- -=--=--=--=--=--=--=-- Performing Laboratory: Bacteriology Report Performed By: [facility] [CLIA# [id number]] [place] [address] [facility] Jun 21, 2024 06:12 PM LR MICROBIOLOGY RE PORT: Reporting Lab: [facility] [CLIA# [id number]] [place] [address] Accession [UID]: [id number] [[id number]] Received: Jun 21, 2024@18:12 Collection sample: BLOOD [...] -=--=--=--=--=--=--=-- Performing Laboratory: Bacteriology Report Performed By: [facility] [CLIA# [id number]] [place] [address] [facility] Jun 21, 2024 06:11 PM LR MICROBIOLOGY RE PORT: Reporting Lab: [facility] [CLIA# [id number]] [place] [address] Accession [UID]: [id number] [[id number]] Received: Jun 21, 2024@18:11 Collection sample: BLOOD [...] -=--=--=--=--=--=--=-- Performing Laboratory: Bacteriology Report Performed By: [facility] [CLIA# [id number]] [place] [address] [facility] Jun 08, 2024 11:00 AM LR MICROBIOLOGY RE PORT: Reporting Lab: [facility] [CLIA# [id number]] [place] [address] Accession [UID]: [id number] [[id number]] Received: Jun 08, 2024@11:00 Collection sample: URINE Collection date: Jun 08, 2024 11:00 Provider: MARYBETH POWELL Comment on specimen: urine Test(s) ordered: CULTURE & SUSCEPTIBILITY...... completed: Jun 09, 2024 * BACTERIOLOGY FINAL REPORT => Jun 09, 2024 19:12 TECH CODE: [id number] CULTURE RESULTS: ESCHERICHIA COLI - Quantity: >100,000 [...] -=--=--=--=--=--=--=-- Performing Laboratory: Bacteriology Report Performed By: [facility] [CLIA# [id number]] [place] [address] [facility] Encounter Notes: All associated encounter notes This section contains the clinical notes associated to the Encounter. Date/Time Encounter Note(s) Provider Source Jul 05, 2024 11:44 AM OCCUPATIONAL THERA PY CONSULT: LOCAL TITLE: OCCUPATIONAL THERAPY CONSULT STANDARD TITLE: OCCUPATIONAL THERAPY CONSULT DATE OF NOTE: JUL 05, 2024@11:44 ENTRY DATE: JUL 05, 2024@11:44:24 AUTHOR: RANJEET KEYES EXP COSIGNER: URGENCY: STATUS: COMPLETED OCCUPATIONAL THERAPY EVALUATION NOTE Referring provider: Diagnosis for which patient is referred to OT: diverticulitis s/p colectomy Consult request: Assess and treat Precautions: No lifting > 20 lbs x 4 weeks Dates of service: Eval 07/05/24 ENCOUNTER Patient seen for 20 minutes OT Evaluation 20 minutes Low Complexity ASSESSMENT: is a 73 year old referred to OT for evaluation and treatment s/p admission for diverticulitis s/p colectomy. Vet has a PMHx significant for: hypertension, sleep apnea, carpal tunnel syndrome, recurrent diverticulitis, and coronary artery disease. At baseline, vet was independent with I/ADLs and ambulating without assistive devices [place] is currently limited by new ileostomy and lifting restriction. [place] seen for OT/PT co-evaluation. [place] initially engages in questions to establish prior level of function and education. He becomes agitated with encouragement to increase out of bed activity. does demonstrate in gayle ambulation in in room ADLs with grossly supervision level of assist and demonstrates impulsive behaviors throughout session. Anticipate [place] will have functional capability to return home when medically appropriate. No further acute OT needs identified. RECOMMEND THE FOLLOWING SERVICES AT DISCHARGE: Home w/ family supports PLAN: Patient will be discharged from acute OT. Goal to evaluate for occupational performance was met. No further OT needs are identified at this time, vet is discharged from inpt OT services. IDENTIFIED ADAPTIVE EQUIPMENT NEEDS: None. TOILETING RECOMMENDATIONS: Ambulate into bathroom PATIENT EDUCATION ON TREATMENT PLAN: Patient indicates readiness to learn, verbalizes understanding, agreement and satisfaction with the treatment plan. Denies further questions. CURRENT MEDICAL HISTORY: Hypertension ([facility] [id number]) 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[facility] [id number]) Impulse control disorder ([facility] 78394923) Cervicalgia ([facility] 28401723) Sleep apnea ([facility] 63846539) Coronary artery disease ([facility] 82717963) Hyperlipidemia ([facility] 64801015) Colonoscopy normal ([facility] 956691311) Decreased vitamin D ([facility] 839907450) Aneurysm of common iliac artery ([facility] 257105073) Pain of both knees ([facility] 046420962397095)History of surgery ([facility] 112843369) Wrist pain ([facility] 17325138) Carpal tunnel syndrome ([facility] 56888671) Steatosis of liver ([facility] 013491066) Diverticular disease ([facility] 327044469) Infarction of kidney ([facility] 30693331) Ex-tobacco user ([facility] 249780257) Impaired Fasting Glucose ([facility] 639442845)Adrenal mass ([facility] 615675487) Abdominal aortic aneurysm ([facility] [id number] cyst ([facility] 57685265) Multiple nodules of lung ([facility] 942042753)Hiatal hernia ([facility] 31822143) Shoulder Pain ([facility] 98204106) Trigger finger ([facility] 6882709) [facility] Primary Care (ICD-10-CM R69.) SUBJECTIVE: [place] becomes increasing agitated throughout session, swearing, and engaging in disrespectful language. Attempted to boundary set with little improvement PAIN: None. SOCIAL HISTORY Lives: Significant other Primary Support System: Significant other HOME ENVIRONMENT: Lives in: Split level house - 1 steps to enter, 8 up, 8 down - Bathroom: *toilet: standard *shower: walk in shower *Bathroom Equipment: built in shower chair - Adaptive Equipment owned by : None. PRIOR LEVEL OF INDEPENDENCE: Activities of Daily Living (ADLs) -Independent Instrumental Activities of Daily Living (IADLs): -shared with significant other Fall History: None. Community Access: Drives OBJECTIVE: FUNCTION IN AREAS OF OCCUPATION: Activities of Daily Living (ADLs) -Hygiene and grooming: NT -Feeding: NT -Toileting: NT (will need ostomy training) - Toilet transfer: NT, from observed function, anticipate mod I -UE Dressing: NT -Lower Extremity Dressing: supervision for non-skid socks -Transfers: Sit <> stand: Mod I -Bed mobility: - Supine > Sit: Mod I - Sit > Supine: Mod I - Repositioning: NT -Functional Mobility: Supervision in gayle, pushing IV pole, impulsive and demonstrating unsafe behavior at times d/t agitation. EDUCATION: Role of OT in Acute setting, POC, d/c planning. [place] verbalizes understanding of education provided today. VITALS: Not recorded. COGNITION: - Orientation: Oriented to self, place and situation - Attention span: Attended to full session without difficulty - Commands: Able to follow 2 step commands, requires cues - Communication: Able to make needs known - Safety Awareness: Appears intact, pt demonstrates insight to current limitations EMOTIONAL/BEHAVIORAL: Impulsive, increasingly agitated throughout session NEUROMUSCULAR FUNCTION Right Upper Extremity: ROM: Within Functional Limits Left Upper Extremity ROM: Within Functional Limits Vision: Appears functional Hearing: Appears functional left with call light, and all needs within reach at end of session. OCCUPATIONAL THERAPY EVALUATION COMPLEXITY Identifying and reporting the complexity level of an evaluation focuses on the first three of these factors--profile and history, assessment and determination of deficits, and clinical decision making. These three factors must be scored and defensible documentation written to support the choice of a level. (Information taken from: https://www.aota.org) PROFILE AND HISTORY (including chart view) Brief history of medical and/or therapy records relating to the presenting problem (low complexity) ASSESSMENT & PERFORMANCE DEFICITS (select all that apply): Physical & Cognition 1-3 performance deficits (Low complexity) LEVEL OF CLINICAL DECISION MAKING Problem-focused assessment(s), consideration of a limited number of treatment options, presents with no comorbidities and modification of tasks or assistance is not necessary.(Low complexity) LOW COMPLEXITY Brief history of medical/or therapy records relating to the presenting problem. An assessment(s) that identifies 1-3 performance deficits that result in activity limitation and/or participating restrictions. Includes analysis of the occupational profile, analysis of date from problem- focused assessment(s), and consideration of a limited number of treatment options. Patient presents with no comorbidities that affect occupational performance. Modification of tasks or assistance with assessment(s) is not necessary to enable completion of evaluation component. /alexi/ RANJEET KEYES OCCUPATIONAL THERAPIST Signed: 07/05/2024 12:04 RANJEET KEYES [facility]
--- OUTSIDE RECORDS SUMMARY | 2024-07-16 07:14 | XMS_ITS ---
[place] DAILY HOSPITALIZATION DATA [facility] Encounter Summary Created on: July 16, 2024 MEG FLACADARCI LOBO : 1950 Sex: Male Author Name [facility] [place] [facility] [place] Address [address] [place] [address] Care Team Providers Care Foley Artist Name Role Phone JATINDER CABRERA Primary Care [...] PART A Sep 29, 2016 PART A [id number] [phone] JUDY WEAVER PATIENT Selected Encounter This section includes the information on record at [place] for the Encounter. Date/Time Encounter Type Encounter Description Reason Pro vider Source Jul 05, 2024 03:07 AM Inpatient Visit DAILY HOSPITALIZATION DATA ANGELA PINTO E Encounter Template Text not used by [place] [...] 2024 08:15 AM AMBULATORY - NONE [facility] Active, Pending, and Scheduled Orders This [...] TYPE & SCREEN - LAB BLOOD SP [facility] Jun 08, 2024 09:57 AM Laboratory - Chemi stry Order URINALYSIS URINE WC ONCE [facility] Jun 12, 2024 12:00 AM Laboratory - Chemi stry Order BNP PLASMA SP ONCE [facility] Jun 21, 2024 05:45 PM Laboratory - Blood Bank Order TYPE & SCREEN - LAB BLOOD WC [facility] Jul 03, 2024 12:00 AM Laboratory - Blood Bank Order TYPE & SCREEN - LAB BLOOD [facility] Jul 16, 2024 12:00 AM Laboratory - Chemi stry Order CBC BLOOD SP ONCE [facility] Jul 17, 2024 12:00 AM Laboratory - Chemi stry Order BASIC METABOLIC PANEL+MG PLASMA SP ONCE [facility] Lab Results: +/- 30 days of [...] Range Comment Jul 10, 2024 07:16 AM [facility] PHOSPHORUS Specimen Type: PLASMA No comment entered. Ordering Provider: JUANCARLOS ECHOLS S Report Released Date/Time: Jul 09, 2024 12:23 PM Reporting Lab: [facility] [address] Performing Lab: [facility] [address] PHOSPHORUS 3.0 mg/dL 2.3-4.3 Jul 10, 2024 07:16 AM [facility] BASIC METABOLIC PANEL+MG Specimen Type: PLASMA No comment entered. Ordering Provider: JUANCARLOS ECHOLS S Report Released Date/Time: Jul 09, 2024 12:23 PM Reporting Lab: [facility] [address] Performing Lab: [facility] [address] CREATININE 0.7 mg/dL 0.7-1.2 UREA NITROGEN 27 mg/dL H 8-26 GLUCOSE 104 mg/dL H 70-100 SODIUM 133 mmol/L L 136-145 POTASSIUM 4.3 mmol/L 3.5-5.1 CHLORIDE 102 mmol/L 98-107 CO2 19 mmol/L L 22-29 CALCIUM 10.1 mg/dL 8.4-10.2 MAGNESIUM 1.9 mg/dL 1.6-2.6 ANION GAP 12 mmol/L 5-15 .CREAT EGFR(CKD-EPI) >90 >60 Jul 10, 2024 07:15 AM [facility] CBC Specimen Type: BLOOD No comment entered. Ordering Provider: JUANCARLOS ECHOLS Report Released Date/Time: Jul 09, 2024 12:23 PM Reporting Lab: [facility] [address] Performing Lab: [facility] [address] WBC 18.8 H 4.0-11.0 RBC 5.08 4.60-6.20 HGB 15.9 g/dL 13.5-17.9 HCT 46.8 41.0-54.0 MCV 92.1 fL 80.0-100.0 MCH 31.3 pg 27.0-33.0 MCHC 34.0 g/dL 32.0-37.5 PLT 479 H 150-400 MPV 10.2 fL 9.1-13.0 RDW 13.7 11.5-14.5 Jul 09, 2024 07:08 AM [facility] CBC Specimen Type: BLOOD No comment entered. Ordering Provider: QUYNH WEISS AV Report Released Date/Time: Jul 08, 2024 06:18 PM Reporting Lab: [facility] [address] Performing Lab: [facility] [address] WBC 15.3 H 4.0-11.0 RBC 4.91 4.60-6.20 HGB 15.1 g/dL 13.5-17.9 HCT 45.7 41.0-54.0 MCV 93.1 fL 80.0-100.0 MCH 30.8 pg 27.0-33.0 MCHC 33.0 g/dL 32.0-37.5 PLT 443 H 150-400 MPV 10.0 fL 9.1-13.0 RDW 13.5 11.5-14.5 Jul 08, 2024 10:50 AM [facility] URINALYSIS Specimen Type: URINE No comment entered. Ordering Provider: KATELYNN PERSON Report Released Date/Time: Jul 08, 2024 08:41 AM Reporting Lab: [facility] [address] Performing Lab: [facility] [address] URINE COLOR YELLOW SPECIFIC GRAVITY >1.050 H [...] NEGATIVE NEGATIVE Jul 08, 2024 09:54 AM [facility] CBC Specimen Type: BLOOD Comment: Specimen received in Lab at: 0952 Ordering Provider: JUANCARLOS ECHOLS Report Released Date/Time: Jul 07, 2024 04:49 PM Reporting Lab: [facility] [address] Performing Lab: [facility] [address] WBC 17.5 H 4.0-11.0 RBC 4.88 4.60-6.20 HGB 14.9 g/dL 13.5-17.9 HCT 45.7 41.0-54.0 MCV 93.6 fL 80.0-100.0 MCH 30.5 pg 27.0-33.0 MCHC 32.6 g/dL 32.0-37.5 PLT 472 H 150-400 MPV 10.2 fL 9.1-13.0 RDW 13.7 11.5-14.5 Jul 08, 2024 09:54 AM [facility] PHOSPHORUS Specimen Type: PLASMA Comment: Specimen received in Lab at: 0952 Ordering Provider: BALAJADIA,MAR IA S Report Released Date/Time: Jul 07, 2024 04:49 PM Reporting Lab: [facility] [address] Performing Lab: [facility] [address] PHOSPHORUS 2.6 mg/dL 2.3-4.3 Jul 08, 2024 09:54 AM [facility] BASIC METABOLIC PANEL+MG Specimen Type: PLASMA Comment: Specimen received in Lab at: 0952 Ordering Provider: JUANCARLOS ECHOLS S Report Released Date/Time: Jul 07, 2024 04:49 PM Reporting Lab: [facility] [address] Performing Lab: [facility] [address] CREATININE 0.9 mg/dL 0.7-1.2 UREA NITROGEN 26 mg/dL 8-26 GLUCOSE 128 mg/dL H 70-100 SODIUM 134 mmol/L L 136-145 POTASSIUM 3.4 mmol/L L 3.5-5.1 CHLORIDE 100 mmol/L 98-107 CO2 24 mmol/L 22-29 CALCIUM 9.8 mg/dL 8.4-10.2 MAGNESIUM 1.8 mg/dL 1.6-2.6 ANION GAP 10 mmol/L 5-15 .CREAT EGFR(CKD-EPI) >90 >60 Jul 07, 2024 02:00 PM [facility] C DIFF PANEL Specimen Type: FECES No comment entered. Ordering Provider: JEVON ZAZUETA Report Released Date/Time: Jul 07, 2024 12:26 PM Reporting Lab: [facility] [address] Performing Lab: [facility] [address] C DIFF TOX B GENE PCR NEGATIVE Negative Jul 07, 2024 07:41 AM [facility] PHOSPHORUS Specimen Type: PLASMA No comment entered. Ordering Provider: JEVON ZAZUETA Report Released Date/Time: Jul 06, 2024 03:44 PM Reporting Lab: [facility] [address] Performing Lab: [facility] [address] PHOSPHORUS 3.1 mg/dL 2.3-4.3 Jul 07, 2024 07:41 AM [facility] BASIC METABOLIC PANEL+MG Specimen Type: PLASMA No comment entered. Ordering Provider: JEVON ZAZUETA Report Released Date/Time: Jul 06, 2024 03:44 PM Reporting Lab: [facility] [address] Performing Lab: [facility] [address] CREATININE 0.9 mg/dL 0.7-1.2 UREA NITROGEN 20 mg/dL 8-26 GLUCOSE 157 mg/dL H 70-100 SODIUM 136 mmol/L 136-145 POTASSIUM 3.7 mmol/L 3.5-5.1 CHLORIDE 102 mmol/L 98-107 CO2 21 mmol/L L 22-29 CALCIUM 9.8 mg/dL 8.4-10.2 MAGNESIUM 1.9 mg/dL 1.6-2.6 ANION GAP 13 mmol/L 5-15 .CREAT EGFR(CKD-EPI) >90 >60 Jul 07, 2024 07:40 AM [facility] CBC Specimen Type: BLOOD No comment entered. Ordering Provider: JEVON ZAZUETA Report Released Date/Time: Jul 06, 2024 03:44 PM Reporting Lab: [facility] [address] Performing Lab: [facility] [address] WBC 21.2 H 4.0-11.0 RBC 5.09 4.60-6.20 HGB 15.9 g/dL 13.5-17.9 HCT 48.3 41.0-54.0 MCV 94.9 fL 80.0-100.0 MCH 31.2 pg 27.0-33.0 MCHC 32.9 g/dL 32.0-37.5 PLT 500 H 150-400 MPV 10.3 fL 9.1-13.0 RDW 13.6 11.5-14.5 Jul 06, 2024 07:21 AM [facility] CBC Specimen Type: BLOOD No comment entered. Ordering Provider: JEVON ZAZUETA Report Released Date/Time: Jul 05, 2024 01:22 PM Reporting Lab: [facility] [address] Performing Lab: [facility] [address] WBC 18.0 H 4.0-11.0 RBC 4.83 4.60-6.20 HGB 14.6 g/dL 13.5-17.9 HCT 45.5 41.0-54.0 MCV 94.2 fL 80.0-100.0 MCH 30.2 pg 27.0-33.0 MCHC 32.1 g/dL 32.0-37.5 PLT 368 150-400 MPV 10.4 fL 9.1-13.0 RDW 13.6 11.5-14.5 Jul 06, 2024 07:21 AM [facility] PHOSPHORUS Specimen Type: PLASMA No comment entered. Ordering Provider: JEVON ZAZUETA Report Released Date/Time: Jul 05, 2024 01:22 PM Reporting Lab: [facility] [address] Performing Lab: [facility] [address] PHOSPHORUS 3.6 mg/dL 2.3-4.3 Jul 06, 2024 07:21 AM [facility] BASIC METABOLIC PANEL+MG Specimen Type: PLASMA No comment entered. Ordering Provider: JEVON ZAZUETA Report Released Date/Time: Jul 05, 2024 01:22 PM Reporting Lab: [facility] [address] Performing Lab: [facility] [address] CREATININE 0.7 mg/dL 0.7-1.2 UREA NITROGEN 12 mg/dL 8-26 GLUCOSE 108 mg/dL H 70-100 SODIUM 138 mmol/L 136-145 POTASSIUM 3.4 mmol/L L 3.5-5.1 CHLORIDE 104 mmol/L 98-107 CO2 20 mmol/L L 22-29 CALCIUM 9.3 mg/dL 8.4-10.2 MAGNESIUM 1.9 mg/dL 1.6-2.6 ANION GAP 14 mmol/L 5-15 .CREAT EGFR(CKD-EPI) >90 >60 Jul 05, 2024 07:17 AM [facility] MAGNESIUM Specimen Type: PLASMA No comment entered. Ordering Provider: JUANCARLOS ECHOLS S Report Released Date/Time: Jul 04, 2024 09:39 AM Reporting Lab: [facility] [address] Performing Lab: [facility] [address] MAGNESIUM 2.0 mg/dL 1.6-2.6 Jul 05, 2024 07:17 AM [facility] PHOSPHORUS Specimen Type: PLASMA No comment entered. Ordering Provider: JUANCARLOS ECHOLS S Report Released Date/Time: Jul 04, 2024 09:39 AM Reporting Lab: [facility] [address] Performing Lab: [facility] [address] PHOSPHORUS 2.0 mg/dL L 2.3-4.3 Jul 05, 2024 07:17 AM [facility] BASIC METABOLIC PANEL+MG Specimen Type: PLASMA No comment entered. Ordering Provider: JUANCARLOS ECHOLS S Report Released Date/Time: Jul 04, 2024 09:39 AM Reporting Lab: [facility] [address] Performing Lab: [facility] [address] CREATININE 0.7 mg/dL 0.7-1.2 UREA NITROGEN 12 mg/dL 8-26 GLUCOSE 84 mg/dL 70-100 SODIUM 135 mmol/L L 136-145 POTASSIUM 3.8 mmol/L 3.5-5.1 CHLORIDE 104 mmol/L 98-107 CO2 24 mmol/L 22-29 CALCIUM 9.3 mg/dL 8.4-10.2 MAGNESIUM 2.0 mg/dL 1.6-2.6 ANION GAP 7 mmol/L 5-15 .CREAT EGFR(CKD-EPI) >90 >60 Jul 05, 2024 07:16 AM [facility] CBC Specimen Type: BLOOD No comment entered. Ordering Provider: JUANCARLOS ECHOLS S Report Released Date/Time: Jul 04, 2024 09:39 AM Reporting Lab: [facility] [address] Performing Lab: [facility] [address] WBC 18.3 H 4.0-11.0 RBC 4.49 L 4.60-6.20 HGB 14.1 g/dL 13.5-17.9 HCT 43.4 41.0-54.0 MCV 96.7 fL 80.0-100.0 MCH 31.4 pg 27.0-33.0 MCHC 32.5 g/dL 32.0-37.5 PLT 317 150-400 MPV 10.0 fL 9.1-13.0 RDW 13.9 11.5-14.5 Jul 04, 2024 07:17 AM [facility] PHOSPHORUS Specimen Type: PLASMA No comment entered. Ordering Provider: GABINO CAMERON Report Released Date/Time: Jul 03, 2024 06:31 PM Reporting Lab: [facility] [address] Performing Lab: [facility] [address] PHOSPHORUS 2.8 mg/dL 2.3-4.3 Jul 04, 2024 07:17 AM [facility] BASIC METABOLIC PANEL+MG Specimen Type: PLASMA No comment entered. Ordering Provider: GABINO CAMERON Report Released Date/Time: Jul 03, 2024 06:31 PM Reporting Lab: [facility] [address] Performing Lab: [facility] [address] CREATININE 0.7 mg/dL 0.7-1.2 UREA NITROGEN 16 mg/dL 8-26 GLUCOSE 129 mg/dL H 70-100 SODIUM 137 mmol/L 136-145 POTASSIUM 3.7 mmol/L 3.5-5.1 CHLORIDE 107 mmol/L 98-107 CO2 22 mmol/L 22-29 CALCIUM 9.0 mg/dL 8.4-10.2 MAGNESIUM 1.9 mg/dL 1.6-2.6 ANION GAP 8 mmol/L 5-15 .CREAT EGFR(CKD-EPI) >90 >60 Jul 04, 2024 07:16 AM [facility] CBC Specimen Type: BLOOD No comment entered. Ordering Provider: GABINO CAMERON Report Released Date/Time: Jul 03, 2024 06:31 PM Reporting Lab: [facility] [address] Performing Lab: [facility] [address] WBC 20.6 H 4.0-11.0 RBC 4.63 4.60-6.20 HGB 14.2 g/dL 13.5-17.9 HCT 43.4 41.0-54.0 MCV 93.7 fL 80.0-100.0 MCH 30.7 pg 27.0-33.0 MCHC 32.7 g/dL 32.0-37.5 PLT 329 150-400 MPV 10.4 fL 9.1-13.0 RDW 13.8 11.5-14.5 Jul 04, 2024 07:16 AM [facility] CBC & DIFF Specimen Type: BLOOD Comment: Manual Differential Performed Ordering Provider: GABINO CAMERON Report Released Date/Time: Jul 03, 2024 06:31 PM Reporting Lab: [facility] [address] Performing Lab: [facility] [address] WBC 20.6 H 4.0-11.0 RBC 4.63 4.60-6.20 [...] MORPHOLOGY PRESENT Jul 04, 2024 07:15 AM [facility] BNP Specimen Type: PLASMA No comment entered. Ordering Provider: GABINO CAMERON Report Released Date/Time: Jul 03, 2024 06:31 PM Reporting Lab: [facility] [address] Performing Lab: [facility] [address] BNP 292 pg/mL H <99 Jul 03, 2024 10:32 PM [facility] FINGERSTICK GLUCOSE Specimen Type: BLOOD Comment: Save Result Nurse Notified Ordering Provider: KATELYNN PERSON Report Released Date/Time: Jul 03, 2024 10:50 PM Reporting Lab: [facility] [address] Performing Lab: [facility] [address] FINGERSTICK GLUCOSE 126 mg/dL H 70-100 Jul 03, 2024 05:33 PM [facility] FINGERSTICK GLUCOSE Specimen Type: BLOOD Comment: Save Result Nurse Notified Ordering Provider: KATELYNN PERSON Report Released Date/Time: Jul 03, 2024 05:46 PM Reporting Lab: [facility] [address] Performing Lab: [facility] [address] FINGERSTICK GLUCOSE 141 mg/dL H 70-100 Jul 03, 2024 02:31 PM [facility] POC ABG/ELECTROLYTES Specimen Type: ARTERIAL BLOOD Comment: FIO2 = 97% Patient Temp: 36.0 C Sample Type = ARTERIAL Ordering Provider: MAZIN ARREDONDO Report Released Date/Time: Jul 03, 2024 01:48 PM Reporting Lab: [facility] [address] Performing Lab: [facility] [address] POC PH 7.387 7.35-7.45 POC PCO2 34.4 [...] H 80.0-105.0 Jul 03, 2024 01:05 PM [facility] POC ABG/ELECTROLYTES Specimen Type: ARTERIAL BLOOD Comment: FIO2 = 53% Patient Temp: 36.2 C Sample Type = ARTERIAL Ordering Provider: MAZIN ARREDONDO Report Released Date/Time: Jul 03, 2024 01:48 PM Reporting Lab: [facility] [address] Performing Lab: [facility] [address] POC PH 7.280 L 7.35-7.45 POC PCO2 [...] mm[Hg] 80.0-105.0 Jul 03, 2024 06:15 AM [facility] URINALYSIS Specimen Type: URINE No comment entered. Ordering Provider: MARYBETH POWELL Report Released Date/Time: Jun 12, 2024 04:01 PM Reporting Lab: [facility] [address] Performing Lab: [facility] [address] URINE COLOR YELLOW SPECIFIC GRAVITY 1.031 1.003-1.03 [...] 250 NEGATIVE Jul 03, 2024 06:13 AM [facility] CBC Specimen Type: BLOOD No comment entered. Ordering Provider: MARYBETH POWELL Report Released Date/Time: Jun 12, 2024 03:59 PM Reporting Lab: [facility] [address] Performing Lab: [facility] [address] WBC 15.8 H 4.0-11.0 RBC 5.11 4.60-6.20 HGB 16.1 g/dL 13.5-17.9 HCT 49.1 41.0-54.0 MCV 96.1 fL 80.0-100.0 MCH 31.5 pg 27.0-33.0 MCHC 32.8 g/dL 32.0-37.5 PLT 357 150-400 MPV 9.8 fL 9.1-13.0 RDW 13.7 11.5-14.5 Jun 24, 2024 09:50 AM [facility] BASIC METABOLIC PANEL+MG Specimen Type: PLASMA Comment: Specimen received in Lab at: 0948 Ordering Provider: JEVON ZAZUETA Report Released Date/Time: Jun 23, 2024 06:07 PM Reporting Lab: [facility] [address] Performing Lab: [facility] [address] CREATININE 0.8 mg/dL 0.7-1.2 UREA NITROGEN 13 mg/dL 8-26 GLUCOSE 135 mg/dL H 70-100 SODIUM 135 mmol/L L 136-145 POTASSIUM 3.6 mmol/L 3.5-5.1 CHLORIDE 103 mmol/L 98-107 CO2 24 mmol/L 22-29 CALCIUM 9.2 mg/dL 8.4-10.2 MAGNESIUM 1.9 mg/dL 1.6-2.6 ANION GAP 8 mmol/L 5-15 .CREAT EGFR(CKD-EPI) >90 >60 Jun 24, 2024 09:50 AM [facility] CBC Specimen Type: BLOOD Comment: Specimen received in Lab at: 0948 Ordering Provider: JEVON ZAZUETA Report Released Date/Time: Jun 23, 2024 06:07 PM Reporting Lab: [facility] [address] Performing Lab: [facility] [address] WBC 15.5 H 4.0-11.0 RBC 4.93 4.60-6.20 HGB 15.2 g/dL 13.5-17.9 HCT 46.5 41.0-54.0 MCV 94.3 fL 80.0-100.0 MCH 30.8 pg 27.0-33.0 MCHC 32.7 g/dL 32.0-37.5 PLT 223 150-400 MPV 11.4 fL 9.1-13.0 RDW 13.9 11.5-14.5 Jun 23, 2024 07:52 AM [facility] COMPREHENSIVE METABOLIC PANEL+MG Specimen Type: PLASMA No comment entered. Ordering Provider: JEVON ZAZUETA Report Released Date/Time: Jun 22, 2024 05:51 PM Reporting Lab: [facility] [address] Performing Lab: [facility] [address] CREATININE 0.7 mg/dL 0.7-1.2 UREA NITROGEN 16 [...] >90 >60 Jun 23, 2024 07:52 AM [facility] CBC & DIFF Specimen Type: BLOOD Comment: Automated Differential Performed Ordering Provider: JEVON ZAZUETA Report Released Date/Time: Jun 22, 2024 05:51 PM Reporting Lab: [facility] [address] Performing Lab: [facility] [address] WBC 14.9 H 4.0-11.0 RBC 5.09 4.60-6.20 [...] 0.1 0.0-0.1 Jun 22, 2024 06:10 PM [facility] CBC Specimen Type: BLOOD No comment entered. Ordering Provider: JEVON ZAZUETA Report Released Date/Time: Jun 22, 2024 05:51 PM Reporting Lab: [facility] [address] Performing Lab: [facility] [address] WBC 16.9 H 4.0-11.0 RBC 5.28 4.60-6.20 HGB 16.9 g/dL 13.5-17.9 HCT 50.4 41.0-54.0 MCV 95.5 fL 80.0-100.0 MCH 32.0 pg 27.0-33.0 MCHC 33.5 g/dL 32.0-37.5 PLT 223 150-400 MPV 10.9 fL 9.1-13.0 RDW 14.0 11.5-14.5 Jun 22, 2024 06:10 PM [facility] COMPREHENSIVE METABOLIC PANEL+MG Specimen Type: PLASMA No comment entered. Ordering Provider: JEVON ZAZUETA Report Released Date/Time: Jun 22, 2024 05:51 PM Reporting Lab: [facility] [address] Performing Lab: [facility] [address] CREATININE 0.7 mg/dL 0.7-1.2 UREA NITROGEN 17 [...] >90 >60 Jun 21, 2024 06:48 PM [facility] URINALYSIS Specimen Type: URINE No comment entered. Ordering Provider: DELIA MARTINEZ Report Released Date/Time: Jun 21, 2024 05:45 PM Reporting Lab: [facility] [address] Performing Lab: [facility] [address] URINE COLOR YELLOW SPECIFIC GRAVITY 1.041 H [...] 500 NEGATIVE Jun 21, 2024 05:34 PM [facility] POC CREATININE Specimen Type: BLOOD No comment entered. Ordering Provider: DELIA MARTINEZ Report Released Date/Time: Jun 21, 2024 06:07 PM Reporting Lab: [facility] [address] Performing Lab: [facility] [address] POC CREATININE 1.1 mg/dL 0.6-1.3 Jun 21, 2024 05:30 PM [facility] POC ABG/LACTATE Specimen Type: VENOUS BLOOD No comment entered. Ordering Provider: DELIA MARTINEZ Report Released Date/Time: Jun 21, 2024 06:07 PM Reporting Lab: [facility] [address] Performing Lab: [facility] [address] POC PH 7.470 H 7.31-7.41 POC PCO2 31.2 mm[Hg] L 41.00-51 .0 0 POC PO2 46 mm[Hg] H 35.0-40.0 POC TCO2 24 mmol/L 24.0-29.0 POC HCO3 22.7 mmol/L L 23.0-28.0 POC BE ECT -1 mmol/L POC SO2 85 H 70-75 POC LACTATE 1.85 mmol/L 0.90-1.70 Jun 21, 2024 05:24 PM [facility] PROTHROMBIN TIME/INR Specimen Type: PLASMA No comment entered. Ordering Provider: DELIA MARTINEZ Report Released Date/Time: Jun 21, 2024 05:30 PM Reporting Lab: [facility] [address] Performing Lab: [facility] [address] .INR 1.2 H 0.8-1.1 .PT 13.9 s H 9.4-12.5 Jun 21, 2024 05:24 PM [facility] LIPASE Specimen Type: PLASMA No comment entered. Ordering Provider: DELIA MARTINEZ Report Released Date/Time: Jun 21, 2024 05:30 PM Reporting Lab: [facility] [address] Performing Lab: [facility] [address] LIPASE 32 U/L <60 Jun 21, 2024 05:24 PM [facility] EXTRA GOLD GEL TUBE Specimen Type: SERUM No comment entered. Ordering Provider: DELIA MARTINEZ Report Released Date/Time: Jun 21, 2024 05:41 PM Reporting Lab: [facility] [phone] Performing Lab: [facility] [address] EXTRA GOLD GEL TUBE RECEIVED Jun 21, 2024 05:24 PM [facility] COMPREHENSIVE METABOLIC PANEL+MG Specimen Type: PLASMA No comment entered. Ordering Provider: DELIA MARTINEZ Report Released Date/Time: Jun 21, 2024 05:30 PM Reporting Lab: [facility] [address] Performing Lab: [facility] [address] CREATININE 0.9 mg/dL 0.7-1.2 UREA NITROGEN 29 [...] mg/dL <0.5 Jun 21, 2024 05:24 PM [facility] CBC & DIFF Specimen Type: BLOOD Comment: Manual Differential Performed Ordering Provider: DELIA MARTINEZ Report Released Date/Time: Jun 21, 2024 05:30 PM Reporting Lab: [facility] [address] Performing Lab: [facility] [address] WBC 21.3 H 4.0-11.0 RBC 5.48 4.60-6.20 [...] MORPHOLOGY PRESENT Jun 08, 2024 10:59 AM [facility] PROTHROMBIN TIME/INR Specimen Type: PLASMA No comment entered. Ordering Provider: MARYBETH POWELL Report Released Date/Time: May 28, 2024 09:02 AM Reporting Lab: [facility] [address] Performing Lab: [facility] [id number] .INR 1.0 0.8-1.1 .PT 11.8 s 9.4-12.5 Jun 08, 2024 10:59 AM [facility] HEMOGLOBIN A1C Specimen Type: BLOOD Comment: [...] May 28, 2024 09:02 AM Reporting Lab: [facility] [address] Performing Lab: [facility] [address] HEMOGLOBIN A1C 4.9 4.0-6.0 Jun 08, 2024 10:59 AM [facility] CBC Specimen Type: BLOOD No comment entered. Ordering Provider: MARYBETH POWELL Report Released Date/Time: May 28, 2024 09:02 AM Reporting Lab: [facility] [phone] Performing Lab: [facility] [address] WBC 16.1 H 4.0-11.0 RBC 5.02 4.60-6.20 HGB 16.0 g/dL 13.5-17.9 HCT 47.1 41.0-54.0 MCV 93.8 fL 80.0-100.0 MCH 31.9 pg 27.0-33.0 MCHC 34.0 g/dL 32.0-37.5 PLT 228 150-400 MPV 10.3 fL 9.1-13.0 RDW 14.6 H 11.5-14.5 Jun 08, 2024 10:59 AM [facility] BASIC METABOLIC PANEL+MG Specimen Type: PLASMA No comment entered. Ordering Provider: MARYBETH POWELL Report Released Date/Time: May 28, 2024 09:02 AM Reporting Lab: [facility] [address] Performing Lab: [facility] [address] CREATININE 0.9 mg/dL 0.7-1.2 UREA NITROGEN 15 [...] Source Jul 05, 2024 08:[address] [facility] Jul 05, 2024 05:[address] [facility] Jul 05, 2024 04:[address] [facility] Jul 05, 2024 04:51 PM 98.5 97 147/[address] [facility] Jul 05, 2024 03:[address] [facility] Social [...] Current Smoking Status Comment Facil ity May 15, 2024 08:30 AM [facility] FORMER USER [facility] Tobacco Use History This section includes a history of the smoking, or tobacco-related health factors, that were collected on or before the date of the Encounter. The data comes from the [place] facility where the Encounter took place. Date/Time Smoking Status/Tobacco Use Comment F acility May 15, 2024 08:30 AM VA-TOBACCO QUIT 15 YRS OR MORE [facility] May 06, 2023 11:30 AM VA-TOBACCO FORMER USER [facility] May 06, 2023 11:30 AM VA-TOBACCO QUIT 15 YRS OR MORE [facility] Jun 04, 2022 09:00 AM [facility]-TOBACCO FORMER USER [facility] Jun 04, 2022 09:00 AM [place] QU[place] 15 YRS OR MORE [facility] Jul 10, 2021 08:00 AM VA-TOBACCO FORMER USER [facility] Jul 10, 2021 08:00 AM VA-TOBACCO QUIT 5 TO < 15 YRS [facility] May 23, 2020 08:30 AM VA-TOBACCO FORMER USER [facility] May 23, 2020 08:30 AM VA-TOBACCO QUIT 5 TO < 15 YRS [facility] Mar 20, 2019 04:03 PM VA-TOBACCO FORMER USER [facility] Mar 20, 2019 04:03 PM VA-TOBACCO QUIT 5 TO < 15 YRS [facility] Mar 21, 2018 08:13 AM FORMER TOBACCO USER 7Y OR GREATE R [facility] Feb 24, 2017 09:24 AM FORMER TOBACCO USER 7Y OR GREATE R [facility] January 07, 2016 08:01 AM FORMER TOBACCO USE >1Y <7Y [facility] Feb 03, 2015 07:58 AM FORMER TOBACCO USE <1Y [facility] Feb 26, 2014 08:41 AM CURRENT TOBACCO USER [facility] May 13, 2011 01:45 PM CURRENT TOBACCO USER [facility] Advance Directives: All historical and current [...] comes from all [facility]. Date Advance Directives Provider Source Mar 23, 2016 CLINICAL WARNING TIM TERAN CARLOSEDUARDO LOZANO [facility] Radiology Reports: +/- 30 [...] VIEWS PA A ND LAT: FLACA WEAVER [id number] -1950 M Exm Date: JUL 08, 2024@10:09 Req Phys: KATELYNN PERSON Pat Loc: 2KG07-08-2024@11:49 Img Loc: MAIN X-RAY Service: [place] [address] (Case 24 COMPLETE) CHEST 2 VIEWS PA AND LAT (RAD Detailed) CPT:00171 Reason for Study: Uptrending WBC, POD 5 Clinical History: [place] IS NOT under investigation for COVID-19 or is COVID-19 negative POD 5, work up for uptrending wbc Responsible provider name and phone number to notify for critical findings if other than user placing the order and pager listed below: User placing orders pager: Katelynn Person LAST CREATININE 0.9 (07/07/24) Report Status: Verified Date Reported: JUL 08, 2024 Date Verified: JUL 08, 2024 Television Inspector E-Sig: Report: CHEST 2 VIEWS PA AND [...] cardiopulmonary disease. READING PHYSICIAN: Sarbjit Vaughn M.D. -[id number] 07/08/2024 12:46 [facility] National Teleradiology Program [phone] (For Medical Practitioner Use Only) Attention Patients / Veterans: If you have questions or concerns about these test results, please contact your ordering provider or primary care team. Primary Interpreting Staff: RADIOLOGY,OUTSIDE SERVICE, Staff Physician / RADIOLOGY,OUTSIDE SERVICE [facility] Jul 08, 2024 10:[address] (AP) ABDOMEN/PE LVIS W CONTRAST: MEGFLACA YAMIL [id number] -1950 M Exm Date: JUL 08, 2024@10:00 Req Phys: KATELYNN PERSON Pat Loc: G07-08-2024@12:07 Img Loc: CT IMAGING Service: [place] [address] (Case 22 COMPLETE) CT (AP) ABDOMEN/PELVIS W CONTRAST(CT Detailed) CPT:59393 Contrast Media : Non-ionic Iodinated Reason for [...] PLASMA .CREAT EGFR(CKD-E >90 Ref: >=60 Allergies: (Onward only) TERAZOSIN (Mar 13, 2015) Report Status: Verified Date Reported: JUL 08, 2024 Date Verified: JUL 08, 2024 Television Inspector E-Sig: Report: CT (AP) ABDOMEN/PELVIS W CONTRAST [...] as noted above READING PHYSICIAN: Celestino Blanc -[id number] 07/08/2024 13:04 [facility] [employer] Teleradiology Program [phone] (For Medical Practitioner Use Only) Attention Patients / Veterans: If you have questions or concerns about these test results, please contact your ordering provider or primary care team. Primary Interpreting Staff: RADIOLOGY,OUTSIDE SERVICE, Staff Physician / RADIOLOGY,OUTSIDE SERVICE [facility] Jun 22, 2024 11:49 AM ABSCESS DRAIN PLAC EMENT PERITONEAL (P): FLACA WEAVER [id number] -1950 M Exm Date: JUN 22, 2024@11:49 Req Phys: ANGELA HOLDEN Loc: [facility]06-22-2024@17:14 Img Loc: INTERVENTIONAL RADIOLOGY Service: [place] [address] (Case [id number] COMPLETE) IR PERITONEAL/RETROPERITONEAL PER(ANI Detailed) CPT:12865 Reason for Study: diverticulitis with abscess (Case 3570 COMPLETE) IR MOD SEDATION 10-22 MIN (ANI Detailed) CPT:32536 Clinical History: IS NOT under investigation for COVID-19 or is COVID-19 negative 73 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 please place abscess drain. Contact number for responsible provider who can be reached for any questions or notifications of critical findings: [phone] n/a LAST CREATININE 0.9 (06/21/24) Report Status: Verified Date Reported: JUN 22, 2024 Date Verified: JUN 22, 2024 Television Inspector E-Sig:/ES/LISA PENDLETON MD Report: PROCEDURES: Placement of [...] obtained. A pre-procedural Time-Out was performed per [facility] policy. The patient was placed in the supine position on the CT table. Preprocedural scan performed. The suprapubic region/lower abdominal wall was sterilely prepped and draped in the usual fashion.1% lidocaine without epinephrine was used for local anesthesia. Using real-time CT fluoroscopy, a 5 Fijian Shyp centesis catheter was advanced into the collection in the left pelvis. A wire was coiled in the collection. The tract into the collection was dilated to accommodate the 12 Fijian locking pigtail drainage catheter. There was return [...] Primary Interpreting Staff: LISA PENDLETON MD, RADIOLOGIST (Television Inspector) /LISA CARDONA [facility] Jun 22, 2024 11:[address] NEEDLE PLACEMEN T (P): FLACA WEAVER [id number] -1950 M Exm Date: JUN 22, 2024@11:48 Req Phys: ANGELA HOLDEN Loc: 2K/06-22-2024@17:14 Img Loc: CT IMAGING Service: [place] [address] (Case [id number] COMPLETE) CT SCAN FOR NEEDLE PLACEMENT (CT Detailed) CPT:28445 Reason for Study: l pelvic abscess drain Clinical History: Report Status: Verified Date Reported: JUN 22, 2024 Date Verified: JUN 22, 2024 Television Inspector E-Sig:/ES/LISA PENDLETON MD Report: PROCEDURES: Placement of [...] obtained. A pre-procedural Time-Out was performed per [facility] policy. The patient was placed in the supine position on the CT table. Preprocedural scan performed. The suprapubic region/lower abdominal wall was sterilely prepped and draped in the usual fashion.1% lidocaine without epinephrine was used for local anesthesia. Using real-time CT fluoroscopy, a 5 Fijian [employer]esis catheter was advanced into the collection in the left pelvis. A wire was coiled in the collection. The tract into the collection was dilated to accommodate the 12 Fijian locking pigtail drainage catheter. There was return [...] Primary Interpreting Staff: LISA PENDLETON MD, RADIOLOGIST (Television Inspector) /JRT LISA PENDLETON [facility] Jun 21, 2024 06:[address] (AP) ABDOMEN/PE LVIS (P): FLACA WEAVER [id number] -1950 M Exm Date: JUN 21, 2024@18:09 Req Phys: DELIA MARTINEZ Loc: [facility] EMERGENCY DEPT WALK-IN (Re Img Loc: CT IMAGING Service: [place] [address] (Case [id number] COMPLETE) CT (AP) ABDOMEN/PELVIS W CONTRAST(CT Detailed) CPT:94802 Contrast Media : Non-ionic Iodinated Reason for [...] PLASMA .CREAT EGFR(CKD-E >90 Ref: >=60 Allergies: (Onward only) TERAZOSIN (Mar 13, 2015) Defer to [...] 21, 2024 Date Verified: JUN 21, 2024 Television Inspector E-Sig:/ALEXI/CARLOS A CUNNINGHAM DO Report: EXAMINATION: CT [...] Interpreting Staff: CARLOS A CUNNINGHAM DO, RADIOLOGIST (Television Inspector) /CARLOS A ROWELL [facility] Pathology Reports: +/- 30 days of [...] COSIGNER: URGENCY: STATUS: COMPLETED $APHDR Reporting Lab: [facility] [CLIA# [id number]] [place] [address] - - - - - - - [...] - PATHOLOGY REPORT Accession No. [id number] - - - - - - - [...] - PATHOLOGY REPORT Accession No. [id number] - - - - - - - [...] Second circumferential surgical margin, en face; E-F: Structural Engineering Project Manager diverticula; G: Structural Engineering Project Manager section of mesentery; H: Random merchandising representative section of additional adipose tissue fragment. [...] Performing Laboratory: Surgical Pathology Report Performed By: [facility] [CLIA# [id number]] [place] [address] $FTR - - - - - - - - - - - - - - - - - - - - - - - - - - - - - - - - - - - - - - - - (End of report) EDUARDO PALOMARES MD bcb Date Jul 06, 2024 - - - - - - - - - - - - - - - - - - - - - - - - - - - - - - - - - - - - - - - - FLACA WEAVER STANDARD FORM 515 ID:[id number] SEX:M :1950 AGE: 73 LOC:11319 ADM:Jun DX:DIVERTICULITIS PCP: Jatinder Cabrera /alexi/ EDUARDO PALOMARES MD STAFF PATHOLOGIST Signed: 07/06/2024 10:40 EDUARDO PALOMARES [facility] Jun 22, 2024 01:15 PM LR MICROBIOLOGY RE PORT: Reporting Lab: [facility] [CLIA# [id number]] [place] [address] Accession [UID]: [id number] [[id number]] Received: Jun 22, 2024@13:38 Collection sample: FLUID Collection date: Jun 22, 2024 13:15 Provider: ANGELA HOLDEN Comment on specimen: LLQ ABSCESS, RECEIVED IN ANAEROBIC TRANSPORT VIAL Test(s) ordered: GRAM STAIN.................... completed: Jun 22, 2024 15:03 CULTURE & SUSCEPTIBILITY...... completed: Jun 25, 2024 * BACTERIOLOGY FINAL REPORT => Jun 25, 2024 10:56 TECH CODE: [id number] GRAM STAIN: DIRECT SMEAR of specimen before [...] -=--=--=--=--=--=--=-- Performing Laboratory: Bacteriology Report Performed By: [facility] [CLIA# [id number]] [place] [address] [facility] Jun 22, 2024 01:15 PM LR MICROBIOLOGY RE PORT: Reporting Lab: [facility] [CLIA# [id number]] [place] [address] Accession [UID]: [id number] [[id number]] Received: Jun 22, 2024@13:38 Collection sample: FLUID Collection date: Jun 22, 2024 13:15 Provider: ANGELA HOLDEN Comment on specimen: LLQ ABSCESS, RECEIVED IN ANAEROBIC TRANSPORT VIAL Test(s) ordered: ANAEROBIC CULTURE............. completed: Jun 28, 2024 * BACTERIOLOGY FINAL REPORT => Jun 28, 2024 10:08 TECH CODE: [id number] CULTURE RESULTS: HEAVY GROWTH MIXED ANAEROBES Comment: including the followin+ Bacteroides fragilis 4+ Bacteroides vulgatus 4+ Clostridium innocuum Beta-lactamase negative 4+ Bacteroides caccae 4+ Parvimonas micra 4+ Bacteroides uniformis 4+ Gemella morbillorum 4+ anaerobic small, Gram Positive Rods 4+ Bacteroides thetaiotaomicron Standard workup is now complete. Bacteriology Remark(s): THIS REPORT IS FINAL =--=--=--=--=--=--=--=--=--= --=--=--=--=--=--=--=--=--=- -=--=--=--=--=--=--=-- Performing Laboratory: Bacteriology Report Performed By: [facility] [CLIA# [id number]] [place] [address] [facility] Jun 21, 2024 06:12 PM LR MICROBIOLOGY RE PORT: Reporting Lab: [facility] [CLIA# [id number]] [place] [address] Accession [UID]: [id number] [[id number]] Received: Jun 21, 2024@18:12 Collection sample: BLOOD [...] -=--=--=--=--=--=--=-- Performing Laboratory: Bacteriology Report Performed By: [facility] [CLIA# [id number]] [place] [address] [facility] Jun 21, 2024 06:11 PM LR MICROBIOLOGY RE PORT: Reporting Lab: [facility] [CLIA# [id number]] [place] [address] Accession [UID]: [id number] [[id number]] Received: Jun 21, 2024@18:11 Collection sample: BLOOD [...] -=--=--=--=--=--=--=-- Performing Laboratory: Bacteriology Report Performed By: [facility] [CLIA# [id number]] [place] [address] [facility] Jun 08, 2024 11:00 AM LR MICROBIOLOGY RE PORT: Reporting Lab: [facility] [CLIA# [id number]] [place] [address] Accession [UID]: [id number] [[id number]] Received: Jun 08, 2024@11:00 Collection sample: URINE Collection date: Jun 08, 2024 11:00 Provider: MARYBETH POWELL Comment on specimen: urine Test(s) ordered: CULTURE & SUSCEPTIBILITY...... completed: Jun 09, 2024 * BACTERIOLOGY FINAL REPORT => Jun 09, 2024 19:12 TECH CODE: [id number] CULTURE RESULTS: ESCHERICHIA COLI - Quantity: >100,000 [...] -=--=--=--=--=--=--=-- Performing Laboratory: Bacteriology Report Performed By: [facility] [CLIA# [id number]] [place] [address] [facility]
--- OUTSIDE RECORDS SUMMARY | 2024-07-16 07:15 | XMS_ITS ---
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 Date/Time Encounter Type Encounter Description Reason Pro vider Source Jul 05, 2024 11:48 AM Inpatient Visit DAILY HOSPITALIZATION DATA MARYBETH POWELL Encounter Template Text not used by [place] [...] 13, 2024 08:15 AM AMBULATORY - NONE [facility] Active, Pending, and Scheduled [...] TYPE & SCREEN - LAB BLOOD SP [facility] Jun 08, 2024 09:57 AM Laboratory - Chemi stry Order URINALYSIS URINE WC ONCE [facility] Jun 12, 2024 12:00 AM Laboratory - Chemi stry Order BNP PLASMA SP ONCE [facility] Jun 21, 2024 05:45 PM Laboratory - Blood Bank Order TYPE & SCREEN - LAB BLOOD WC [facility] Jul 03, 2024 12:00 AM Laboratory - Blood Bank Order TYPE & SCREEN - LAB BLOOD [facility] Jul 16, 2024 12:00 AM Laboratory - Chemi stry Order CBC BLOOD SP ONCE [facility] Jul 17, 2024 12:00 AM Laboratory - Chemi stry Order BASIC METABOLIC PANEL+MG PLASMA SP ONCE [facility] Lab Results: +/- 30 [...] Range Comment Jul 10, 2024 07:16 AM [facility] PHOSPHORUS Specimen Type: PLASMA No comment entered. Ordering Provider: JUANCARLOS ECHOLS S Report Released Date/Time: Jul 09, 2024 12:23 PM Reporting Lab: [facility] [address] Performing Lab: [facility] [address] PHOSPHORUS 3.0 mg/dL 2.3-4.3 Jul 10, 2024 07:16 AM [facility] BASIC METABOLIC PANEL+MG Specimen Type: PLASMA No comment entered. Ordering Provider: JUANCARLOS ECHOLS S Report Released Date/Time: Jul 09, 2024 12:23 PM Reporting Lab: [facility] [address] Performing Lab: [facility] [address] CREATININE 0.7 mg/dL 0.7-1.2 UREA NITROGEN 27 mg/dL H 8-26 GLUCOSE 104 mg/dL H 70-100 SODIUM 133 mmol/L L 136-145 POTASSIUM 4.3 mmol/L 3.5-5.1 CHLORIDE 102 mmol/L 98-107 CO2 19 mmol/L L 22-29 CALCIUM 10.1 mg/dL 8.4-10.2 MAGNESIUM 1.9 mg/dL 1.6-2.6 ANION GAP 12 mmol/L 5-15 .CREAT EGFR(CKD-EPI) >90 >60 Jul 10, 2024 07:15 AM [facility] CBC Specimen Type: BLOOD No comment entered. Ordering Provider: JUANCARLOS ECHOLS Report Released Date/Time: Jul 09, 2024 12:23 PM Reporting Lab: [facility] [address] Performing Lab: [facility] [address] WBC 18.8 H 4.0-11.0 RBC 5.08 4.60-6.20 HGB 15.9 g/dL 13.5-17.9 HCT 46.8 41.0-54.0 MCV 92.1 fL 80.0-100.0 MCH 31.3 pg 27.0-33.0 MCHC 34.0 g/dL 32.0-37.5 PLT 479 H 150-400 MPV 10.2 fL 9.1-13.0 RDW 13.7 11.5-14.5 Jul 09, 2024 07:08 AM [facility] CBC Specimen Type: BLOOD No comment entered. Ordering Provider: QUYNH WEISS Report Released Date/Time: Jul 08, 2024 06:18 PM Reporting Lab: [facility] [address] Performing Lab: [facility] [address] WBC 15.3 H 4.0-11.0 RBC 4.91 4.60-6.20 HGB 15.1 g/dL 13.5-17.9 HCT 45.7 41.0-54.0 MCV 93.1 fL 80.0-100.0 MCH 30.8 pg 27.0-33.0 MCHC 33.0 g/dL 32.0-37.5 PLT 443 H 150-400 MPV 10.0 fL 9.1-13.0 RDW 13.5 11.5-14.5 Jul 08, 2024 10:50 AM [facility] URINALYSIS Specimen Type: URINE No comment entered. Ordering Provider: KATELYNN PERSON Report Released Date/Time: Jul 08, 2024 08:41 AM Reporting Lab: [facility] [address] Performing Lab: [facility] [address] URINE COLOR YELLOW SPECIFIC GRAVITY >1.050 H [...] NEGATIVE NEGATIVE Jul 08, 2024 09:54 AM [facility] CBC Specimen Type: BLOOD Comment: Specimen received in Lab at: 0952 Ordering Provider: JUANCARLOS ECHOLS Report Released Date/Time: Jul 07, 2024 04:49 PM Reporting Lab: [facility] [address] Performing Lab: [facility] [address] WBC 17.5 H 4.0-11.0 RBC 4.88 4.60-6.20 HGB 14.9 g/dL 13.5-17.9 HCT 45.7 41.0-54.0 MCV 93.6 fL 80.0-100.0 MCH 30.5 pg 27.0-33.0 MCHC 32.6 g/dL 32.0-37.5 PLT 472 H 150-400 MPV 10.2 fL 9.1-13.0 RDW 13.7 11.5-14.5 Jul 08, 2024 09:54 AM [facility] PHOSPHORUS Specimen Type: PLASMA Comment: Specimen received in Lab at: 0952 Ordering Provider: BALAJADIA,MAR IA S Report Released Date/Time: Jul 07, 2024 04:49 PM Reporting Lab: [facility] [address] Performing Lab: [facility] [address] PHOSPHORUS 2.6 mg/dL 2.3-4.3 Jul 08, 2024 09:54 AM [facility] BASIC METABOLIC PANEL+MG Specimen Type: PLASMA Comment: Specimen received in Lab at: 0952 Ordering Provider: JUANCARLOS ECHOLS S Report Released Date/Time: Jul 07, 2024 04:49 PM Reporting Lab: [facility] [address] Performing Lab: [facility] [address] CREATININE 0.9 mg/dL 0.7-1.2 UREA NITROGEN 26 mg/dL 8-26 GLUCOSE 128 mg/dL H 70-100 SODIUM 134 mmol/L L 136-145 POTASSIUM 3.4 mmol/L L 3.5-5.1 CHLORIDE 100 mmol/L 98-107 CO2 24 mmol/L 22-29 CALCIUM 9.8 mg/dL 8.4-10.2 MAGNESIUM 1.8 mg/dL 1.6-2.6 ANION GAP 10 mmol/L 5-15 .CREAT EGFR(CKD-EPI) >90 >60 Jul 07, 2024 02:00 PM [facility] C DIFF PANEL Specimen Type: FECES No comment entered. Ordering Provider: JEVON ZAZUETA Report Released Date/Time: Jul 07, 2024 12:26 PM Reporting Lab: [facility] [address] Performing Lab: [facility] [address] C DIFF TOX B GENE PCR NEGATIVE Negative Jul 07, 2024 07:41 AM [facility] PHOSPHORUS Specimen Type: PLASMA No comment entered. Ordering Provider: JEVON ZAZUETA Report Released Date/Time: Jul 06, 2024 03:44 PM Reporting Lab: [facility] [address] Performing Lab: [facility] [address] PHOSPHORUS 3.1 mg/dL 2.3-4.3 Jul 07, 2024 07:41 AM [facility] BASIC METABOLIC PANEL+MG Specimen Type: PLASMA No comment entered. Ordering Provider: JEVON ZAZUETA Report Released Date/Time: Jul 06, 2024 03:44 PM Reporting Lab: [facility] [address] Performing Lab: [facility] [address] CREATININE 0.9 mg/dL 0.7-1.2 UREA NITROGEN 20 mg/dL 8-26 GLUCOSE 157 mg/dL H 70-100 SODIUM 136 mmol/L 136-145 POTASSIUM 3.7 mmol/L 3.5-5.1 CHLORIDE 102 mmol/L 98-107 CO2 21 mmol/L L 22-29 CALCIUM 9.8 mg/dL 8.4-10.2 MAGNESIUM 1.9 mg/dL 1.6-2.6 ANION GAP 13 mmol/L 5-15 .CREAT EGFR(CKD-EPI) >90 >60 Jul 07, 2024 07:40 AM [facility] CBC Specimen Type: BLOOD No comment entered. Ordering Provider: JEVON ZAZUETA Report Released Date/Time: Jul 06, 2024 03:44 PM Reporting Lab: [facility] [address] Performing Lab: [facility] [address] WBC 21.2 H 4.0-11.0 RBC 5.09 4.60-6.20 HGB 15.9 g/dL 13.5-17.9 HCT 48.3 41.0-54.0 MCV 94.9 fL 80.0-100.0 MCH 31.2 pg 27.0-33.0 MCHC 32.9 g/dL 32.0-37.5 PLT 500 H 150-400 MPV 10.3 fL 9.1-13.0 RDW 13.6 11.5-14.5 Jul 06, 2024 07:21 AM [facility] CBC Specimen Type: BLOOD No comment entered. Ordering Provider: JEVON ZAZUETA Report Released Date/Time: Jul 05, 2024 01:22 PM Reporting Lab: [facility] [address] Performing Lab: [facility] [address] WBC 18.0 H 4.0-11.0 RBC 4.83 4.60-6.20 HGB 14.6 g/dL 13.5-17.9 HCT 45.5 41.0-54.0 MCV 94.2 fL 80.0-100.0 MCH 30.2 pg 27.0-33.0 MCHC 32.1 g/dL 32.0-37.5 PLT 368 150-400 MPV 10.4 fL 9.1-13.0 RDW 13.6 11.5-14.5 Jul 06, 2024 07:21 AM [facility] PHOSPHORUS Specimen Type: PLASMA No comment entered. Ordering Provider: JEVON ZAZUETA Report Released Date/Time: Jul 05, 2024 01:22 PM Reporting Lab: [facility] [address] Performing Lab: [facility] [address] PHOSPHORUS 3.6 mg/dL 2.3-4.3 Jul 06, 2024 07:21 AM [facility] BASIC METABOLIC PANEL+MG Specimen Type: PLASMA No comment entered. Ordering Provider: JEVON ZAZUETA Report Released Date/Time: Jul 05, 2024 01:22 PM Reporting Lab: [facility] [address] Performing Lab: [facility] [address] CREATININE 0.7 mg/dL 0.7-1.2 UREA NITROGEN 12 mg/dL 8-26 GLUCOSE 108 mg/dL H 70-100 SODIUM 138 mmol/L 136-145 POTASSIUM 3.4 mmol/L L 3.5-5.1 CHLORIDE 104 mmol/L 98-107 CO2 20 mmol/L L 22-29 CALCIUM 9.3 mg/dL 8.4-10.2 MAGNESIUM 1.9 mg/dL 1.6-2.6 ANION GAP 14 mmol/L 5-15 .CREAT EGFR(CKD-EPI) >90 >60 Jul 05, 2024 07:17 AM [facility] MAGNESIUM Specimen Type: PLASMA No comment entered. Ordering Provider: JUANCARLOS ECHOLS S Report Released Date/Time: Jul 04, 2024 09:39 AM Reporting Lab: [facility] [address] Performing Lab: [facility] [address] MAGNESIUM 2.0 mg/dL 1.6-2.6 Jul 05, 2024 07:17 AM [facility] PHOSPHORUS Specimen Type: PLASMA No comment entered. Ordering Provider: JUANCARLOS ECHOLS S Report Released Date/Time: Jul 04, 2024 09:39 AM Reporting Lab: [facility] [address] Performing Lab: [facility] [address] PHOSPHORUS 2.0 mg/dL L 2.3-4.3 Jul 05, 2024 07:17 AM [facility] BASIC METABOLIC PANEL+MG Specimen Type: PLASMA No comment entered. Ordering Provider: JUANCARLOS ECHOLS S Report Released Date/Time: Jul 04, 2024 09:39 AM Reporting Lab: [facility] [address] Performing Lab: [facility] [address] CREATININE 0.7 mg/dL 0.7-1.2 UREA NITROGEN 12 mg/dL 8-26 GLUCOSE 84 mg/dL 70-100 SODIUM 135 mmol/L L 136-145 POTASSIUM 3.8 mmol/L 3.5-5.1 CHLORIDE 104 mmol/L 98-107 CO2 24 mmol/L 22-29 CALCIUM 9.3 mg/dL 8.4-10.2 MAGNESIUM 2.0 mg/dL 1.6-2.6 ANION GAP 7 mmol/L 5-15 .CREAT EGFR(CKD-EPI) >90 >60 Jul 05, 2024 07:16 AM [facility] CBC Specimen Type: BLOOD No comment entered. Ordering Provider: JUANCARLOS ECHOLS S Report Released Date/Time: Jul 04, 2024 09:39 AM Reporting Lab: [facility] [address] Performing Lab: [facility] [address] WBC 18.3 H 4.0-11.0 RBC 4.49 L 4.60-6.20 HGB 14.1 g/dL 13.5-17.9 HCT 43.4 41.0-54.0 MCV 96.7 fL 80.0-100.0 MCH 31.4 pg 27.0-33.0 MCHC 32.5 g/dL 32.0-37.5 PLT 317 150-400 MPV 10.0 fL 9.1-13.0 RDW 13.9 11.5-14.5 Jul 04, 2024 07:17 AM [facility] BASIC METABOLIC PANEL+MG Specimen Type: PLASMA No comment entered. Ordering Provider: GABINO CAMERON Report Released Date/Time: Jul 03, 2024 06:31 PM Reporting Lab: [facility] [address] Performing Lab: [facility] [address] CREATININE 0.7 mg/dL 0.7-1.2 UREA NITROGEN 16 mg/dL 8-26 GLUCOSE 129 mg/dL H 70-100 SODIUM 137 mmol/L 136-145 POTASSIUM 3.7 mmol/L 3.5-5.1 CHLORIDE 107 mmol/L 98-107 CO2 22 mmol/L 22-29 CALCIUM 9.0 mg/dL 8.4-10.2 MAGNESIUM 1.9 mg/dL 1.6-2.6 ANION GAP 8 mmol/L 5-15 .CREAT EGFR(CKD-EPI) >90 >60 Jul 04, 2024 07:17 AM [facility] PHOSPHORUS Specimen Type: PLASMA No comment entered. Ordering Provider: GABINO CAMERON Report Released Date/Time: Jul 03, 2024 06:31 PM Reporting Lab: [facility] [address] Performing Lab: [facility] [address] PHOSPHORUS 2.8 mg/dL 2.3-4.3 Jul 04, 2024 07:16 AM [facility] CBC Specimen Type: BLOOD No comment entered. Ordering Provider: GABINO CAMERON Report Released Date/Time: Jul 03, 2024 06:31 PM Reporting Lab: [facility] [address] Performing Lab: [facility] [address] WBC 20.6 H 4.0-11.0 RBC 4.63 4.60-6.20 HGB 14.2 g/dL 13.5-17.9 HCT 43.4 41.0-54.0 MCV 93.7 fL 80.0-100.0 MCH 30.7 pg 27.0-33.0 MCHC 32.7 g/dL 32.0-37.5 PLT 329 150-400 MPV 10.4 fL 9.1-13.0 RDW 13.8 11.5-14.5 Jul 04, 2024 07:16 AM [facility] CBC & DIFF Specimen Type: BLOOD Comment: Manual Differential Performed Ordering Provider: GABINO CAMERON Report Released Date/Time: Jul 03, 2024 06:31 PM Reporting Lab: [facility] [address] Performing Lab: [facility] [address] WBC 20.6 H 4.0-11.0 RBC 4.63 4.60-6.20 [...] MORPHOLOGY PRESENT Jul 04, 2024 07:15 AM [facility] BNP Specimen Type: PLASMA No comment entered. Ordering Provider: GABINO CAMERON Report Released Date/Time: Jul 03, 2024 06:31 PM Reporting Lab: [facility] [address] Performing Lab: [facility] [address] BNP 292 pg/mL H <99 Jul 03, 2024 10:32 PM [facility] FINGERSTICK GLUCOSE Specimen Type: BLOOD Comment: Save Result Nurse Notified Ordering Provider: KATELYNN PERSON Report Released Date/Time: Jul 03, 2024 10:50 PM Reporting Lab: [facility] [address] Performing Lab: [facility] [address] FINGERSTICK GLUCOSE 126 mg/dL H 70-100 Jul 03, 2024 05:33 PM [facility] FINGERSTICK GLUCOSE Specimen Type: BLOOD Comment: Save Result Nurse Notified Ordering Provider: KATELYNN PERSON Report Released Date/Time: Jul 03, 2024 05:46 PM Reporting Lab: [facility] [address] Performing Lab: [facility] [address] FINGERSTICK GLUCOSE 141 mg/dL H 70-100 Jul 03, 2024 02:31 PM [facility] POC ABG/ELECTROLYTES Specimen Type: ARTERIAL BLOOD Comment: FIO2 = 97% Patient Temp: 36.0 C Sample Type = ARTERIAL Ordering Provider: MAZIN ARREDONDO Report Released Date/Time: Jul 03, 2024 01:48 PM Reporting Lab: [facility] [address] Performing Lab: [facility] [address] POC PH 7.387 7.35-7.45 POC PCO2 34.4 [...] H 80.0-105.0 Jul 03, 2024 01:05 PM [facility] POC ABG/ELECTROLYTES Specimen Type: ARTERIAL BLOOD Comment: FIO2 = 53% Patient Temp: 36.2 C Sample Type = ARTERIAL Ordering Provider: MAZIN ARREDONDO Report Released Date/Time: Jul 03, 2024 01:48 PM Reporting Lab: [facility] [address] Performing Lab: [facility] [address] POC PH 7.280 L 7.35-7.45 POC PCO2 [...] mm[Hg] 80.0-105.0 Jul 03, 2024 06:15 AM [facility] URINALYSIS Specimen Type: URINE No comment entered. Ordering Provider: MARYBETH POWELL Report Released Date/Time: Jun 12, 2024 04:01 PM Reporting Lab: [facility] [address] Performing Lab: [facility] [address] URINE COLOR YELLOW SPECIFIC GRAVITY 1.031 1.003-1.03 [...] 250 NEGATIVE Jul 03, 2024 06:13 AM [facility] CBC Specimen Type: BLOOD No comment entered. Ordering Provider: MARYBETH POWELL Report Released Date/Time: Jun 12, 2024 03:59 PM Reporting Lab: [facility] [address] Performing Lab: [facility] [address] WBC 15.8 H 4.0-11.0 RBC 5.11 4.60-6.20 HGB 16.1 g/dL 13.5-17.9 HCT 49.1 41.0-54.0 MCV 96.1 fL 80.0-100.0 MCH 31.5 pg 27.0-33.0 MCHC 32.8 g/dL 32.0-37.5 PLT 357 150-400 MPV 9.8 fL 9.1-13.0 RDW 13.7 11.5-14.5 Jun 24, 2024 09:50 AM [facility] BASIC METABOLIC PANEL+MG Specimen Type: PLASMA Comment: Specimen received in Lab at: 0948 Ordering Provider: JEVON ZAZUETA Report Released Date/Time: Jun 23, 2024 06:07 PM Reporting Lab: [facility] [address] Performing Lab: [facility] [address] CREATININE 0.8 mg/dL 0.7-1.2 UREA NITROGEN 13 mg/dL 8-26 GLUCOSE 135 mg/dL H 70-100 SODIUM 135 mmol/L L 136-145 POTASSIUM 3.6 mmol/L 3.5-5.1 CHLORIDE 103 mmol/L 98-107 CO2 24 mmol/L 22-29 CALCIUM 9.2 mg/dL 8.4-10.2 MAGNESIUM 1.9 mg/dL 1.6-2.6 ANION GAP 8 mmol/L 5-15 .CREAT EGFR(CKD-EPI) >90 >60 Jun 24, 2024 09:50 AM [facility] CBC Specimen Type: BLOOD Comment: Specimen received in Lab at: 0948 Ordering Provider: JEVON ZAZUETA Report Released Date/Time: Jun 23, 2024 06:07 PM Reporting Lab: [facility] [address] Performing Lab: [facility] [address] WBC 15.5 H 4.0-11.0 RBC 4.93 4.60-6.20 HGB 15.2 g/dL 13.5-17.9 HCT 46.5 41.0-54.0 MCV 94.3 fL 80.0-100.0 MCH 30.8 pg 27.0-33.0 MCHC 32.7 g/dL 32.0-37.5 PLT 223 150-400 MPV 11.4 fL 9.1-13.0 RDW 13.9 11.5-14.5 Jun 23, 2024 07:52 AM [facility] COMPREHENSIVE METABOLIC PANEL+MG Specimen Type: PLASMA No comment entered. Ordering Provider: JEVON ZAZUETA Report Released Date/Time: Jun 22, 2024 05:51 PM Reporting Lab: [facility] [address] Performing Lab: [facility] [address] CREATININE 0.7 mg/dL 0.7-1.2 UREA NITROGEN 16 [...] >90 >60 Jun 23, 2024 07:52 AM [facility] CBC & DIFF Specimen Type: BLOOD Comment: Automated Differential Performed Ordering Provider: JEVON ZAZUETA Report Released Date/Time: Jun 22, 2024 05:51 PM Reporting Lab: [facility] [address] Performing Lab: [facility] [address] WBC 14.9 H 4.0-11.0 RBC 5.09 4.60-6.20 [...] 0.1 0.0-0.1 Jun 22, 2024 06:10 PM [facility] CBC Specimen Type: BLOOD No comment entered. Ordering Provider: JEVON ZAZUETA Report Released Date/Time: Jun 22, 2024 05:51 PM Reporting Lab: [facility] [address] Performing Lab: [facility] [address] WBC 16.9 H 4.0-11.0 RBC 5.28 4.60-6.20 HGB 16.9 g/dL 13.5-17.9 HCT 50.4 41.0-54.0 MCV 95.5 fL 80.0-100.0 MCH 32.0 pg 27.0-33.0 MCHC 33.5 g/dL 32.0-37.5 PLT 223 150-400 MPV 10.9 fL 9.1-13.0 RDW 14.0 11.5-14.5 Jun 22, 2024 06:10 PM [facility] COMPREHENSIVE METABOLIC PANEL+MG Specimen Type: PLASMA No comment entered. Ordering Provider: JEVON ZAZUETA Report Released Date/Time: Jun 22, 2024 05:51 PM Reporting Lab: [facility] [address] Performing Lab: [facility] [address] CREATININE 0.7 mg/dL 0.7-1.2 UREA NITROGEN 17 [...] >90 >60 Jun 21, 2024 06:48 PM [facility] URINALYSIS Specimen Type: URINE No comment entered. Ordering Provider: DELIA MARTINEZ Report Released Date/Time: Jun 21, 2024 05:45 PM Reporting Lab: [facility] [address] Performing Lab: [facility] [address] URINE COLOR YELLOW SPECIFIC GRAVITY 1.041 H [...] 500 NEGATIVE Jun 21, 2024 05:34 PM [facility] POC CREATININE Specimen Type: BLOOD No comment entered. Ordering Provider: DELIA MARTINEZ Report Released Date/Time: Jun 21, 2024 06:07 PM Reporting Lab: [facility] [address] Performing Lab: [facility] [address] POC CREATININE 1.1 mg/dL 0.6-1.3 Jun 21, 2024 05:30 PM [facility] POC ABG/LACTATE Specimen Type: VENOUS BLOOD No comment entered. Ordering Provider: DELIA MARTINEZ Report Released Date/Time: Jun 21, 2024 06:07 PM Reporting Lab: [facility] [address] Performing Lab: [facility] [address] POC PH 7.470 H 7.31-7.41 POC PCO2 31.2 mm[Hg] L 41.00-51 .0 0 POC PO2 46 mm[Hg] H 35.0-40.0 POC TCO2 24 mmol/L 24.0-29.0 POC HCO3 22.7 mmol/L L 23.0-28.0 POC BE ECT -1 mmol/L POC SO2 85 H 70-75 POC LACTATE 1.85 mmol/L 0.90-1.70 Jun 21, 2024 05:24 PM [facility] PROTHROMBIN TIME/INR Specimen Type: PLASMA No comment entered. Ordering Provider: DELIA MARTINEZ Report Released Date/Time: Jun 21, 2024 05:30 PM Reporting Lab: [facility] [address] Performing Lab: [facility] [address] .INR 1.2 H 0.8-1.1 .PT 13.9 s H 9.4-12.5 Jun 21, 2024 05:24 PM [facility] LIPASE Specimen Type: PLASMA No comment entered. Ordering Provider: DELIA MARTINEZ Report Released Date/Time: Jun 21, 2024 05:30 PM Reporting Lab: [facility] [address] Performing Lab: [facility] [address] LIPASE 32 U/L <60 Jun 21, 2024 05:24 PM [facility] EXTRA GOLD GEL TUBE Specimen Type: SERUM No comment entered. Ordering Provider: DELIA MARTINEZ Report Released Date/Time: Jun 21, 2024 05:41 PM Reporting Lab: [facility] [address] Performing Lab: [facility] [address] EXTRA GOLD GEL TUBE RECEIVED Jun 21, 2024 05:24 PM [facility] COMPREHENSIVE METABOLIC PANEL+MG Specimen Type: PLASMA No comment entered. Ordering Provider: DELIA MARTINEZ Report Released Date/Time: Jun 21, 2024 05:30 PM Reporting Lab: [facility] [address] Performing Lab: [facility] [address] CREATININE 0.9 mg/dL 0.7-1.2 UREA NITROGEN 29 [...] mg/dL <0.5 Jun 21, 2024 05:24 PM [facility] CBC & DIFF Specimen Type: BLOOD Comment: Manual Differential Performed Ordering Provider: DELIA MARTINEZ Report Released Date/Time: Jun 21, 2024 05:30 PM Reporting Lab: [facility] [address] Performing Lab: [facility] [address] WBC 21.3 H 4.0-11.0 RBC 5.48 4.60-6.20 [...] MORPHOLOGY PRESENT Jun 08, 2024 10:59 AM [facility] PROTHROMBIN TIME/INR Specimen Type: PLASMA No comment entered. Ordering Provider: MARYBETH POWELL Report Released Date/Time: May 28, 2024 09:02 AM Reporting Lab: [facility] [address] Performing Lab: [facility] [address] .INR 1.0 0.8-1.1 .PT 11.8 s 9.4-12.5 Jun 08, 2024 10:59 AM [facility] CBC Specimen Type: BLOOD No comment entered. Ordering Provider: MARYBETH POWELL Report Released Date/Time: May 28, 2024 09:02 AM Reporting Lab: [facility] [address] Performing Lab: [facility] [address] WBC 16.1 H 4.0-11.0 RBC 5.02 4.60-6.20 HGB 16.0 g/dL 13.5-17.9 HCT 47.1 41.0-54.0 MCV 93.8 fL 80.0-100.0 MCH 31.9 pg 27.0-33.0 MCHC 34.0 g/dL 32.0-37.5 PLT 228 150-400 MPV 10.3 fL 9.1-13.0 RDW 14.6 H 11.5-14.5 Jun 08, 2024 10:59 AM [facility] HEMOGLOBIN A1C Specimen Type: BLOOD Comment: Values [...] May 28, 2024 09:02 AM Reporting Lab: [facility] [id number] Performing Lab: [facility] [id number] HEMOGLOBIN A1C 4.9 4.0-6.0 Jun 08, 2024 10:59 AM [facility] BASIC METABOLIC PANEL+MG Specimen Type: PLASMA No comment entered. Ordering Provider: MARYBETH POWELL Report Released Date/Time: May 28, 2024 09:02 AM Reporting Lab: [facility] [id number] Performing Lab: [facility] [id number] CREATININE 0.9 mg/dL 0.7-1.2 UREA NITROGEN 15 [...] Source Jul 05, 2024 08:50 PM 7 [facility] Jul 05, 2024 05:00 PM 6 [facility] Jul 05, 2024 04:58 PM 7 [facility] Jul 05, 2024 04:51 PM 98.5 97 147/88 16 95 7 [facility] Jul 05, 2024 03:20 PM 5 [facility] Social History: Smoking Status (Most current) [...] 15, 2024 08:30 AM [facility] 15 YRS OR MORE [facility] May 06, 2023 11:30 AM 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 [facility] May 06, 2023 11:30 AM [...] 2016 CLINICAL WARNING TIM TERAN CARLOSEDUARDO LOZANO [facility] Radiology Reports: +/- 30 days of the [...] VIEWS PA A ND LAT: FLACA WEAVER [id number] -1950 M Exm Date: JUL 08, 2024@10:09 Req Phys: KATELYNN PERSON Loc: 2KG/07-08-2024@11:49 Img Loc: MAIN X-RAY Service: [place] [address] (Case 24 COMPLETE) CHEST 2 VIEWS PA AND LAT (RAD Detailed) CPT:16734 Reason for Study: Uptrending WBC, POD 5 Clinical History: IS NOT under investigation for [...] 08, 2024 Date Verified: JUL 08, 2024 Perinatology Physician E-Sig: Report: CHEST 2 VIEWS PA AND LAT HISTORY: Uptrending WBC, POD 5 COMPARISON: CT chest 11/12/2022 TECHNIQUE: Frontal and lateral views of the chest, submitted to the [place] National Teleradiology Program (NTP) for interpretation. FINDINGS: Lungs: Clear. No focal consolidation. No pulmonary edema. Pleura: No pleural effusion or pneumothorax. Mediastinum: Normal size and contour. Bones: Unremarkable. Impression: No acute cardiopulmonary disease. READING PHYSICIAN: Sarbjit Vaughn M.D. -[id number] 07/08/2024 12:46 [facility] National Teleradiology Program [phone] (For Medical Practitioner Use Only) Attention Patients / Veterans: If you have questions or concerns about these test results, please contact your ordering provider or primary care team. Primary Interpreting Staff: RADIOLOGY,OUTSIDE SERVICE, Staff Physician / RADIOLOGY,OUTSIDE SERVICE [facility] Jul 08, 2024 10:[address] (AP) ABDOMEN/PE LVIS W CONTRAST: MEGFLACADARCI LOBO [id number] -1950 M Exm Date: JUL 08, 2024@10:00 Req Phys: KATELYNN PERSON Pat Loc: G07-08-2024@12:07 Img Loc: CT IMAGING Service: [place] [address] (Case 22 COMPLETE) CT (AP) ABDOMEN/PELVIS W CONTRAST(CT Detailed) CPT:82733 Contrast Media : Non-ionic Iodinated Reason for [...] PLASMA .CREAT EGFR(CKD-E >90 Ref: >=60 Allergies: ([place] only) TERAZOSIN (Mar 13, 2015) Report Status: Verified Date Reported: JUL 08, 2024 Date Verified: JUL 08, 2024 Perinatology Physician E-Sig: Report: CT (AP) ABDOMEN/PELVIS W CONTRAST HISTORY: POD 5, Uptrending WBC - Concern for Abscess/other infection COMPARISON: June 21, 2024 TECHNIQUE: CT abdomen and pelvis was performed after intravenous contrast. Axial, sagittal and coronal reformatted images. The study was performed at the local [place] facility and images were sent to the [place] [facility] Teleradiology Program (NTP) for interpretation. Number [...] as noted above READING PHYSICIAN: Celestino Blanc -[id number] 07/08/2024 13:04 [facility] [phone] (For Medical Practitioner Use Only) Attention Patients / Veterans: If you have questions or concerns about these test results, please contact your ordering provider or primary care team. Primary Interpreting Staff: RADIOLOGY,OUTSIDE SERVICE, Staff Physician / RADIOLOGY,OUTSIDE SERVICE [facility] Jun 22, 2024 11:49 AM ABSCESS DRAIN PLAC EMENT PERITONEAL (P): FLACA WEAVER [id number] -1950 M Exm Date: JUN 22, 2024@11:49 Req Phys: ANGELA HOLDEN Pat Loc: [facility]06-22-2024@17:14 Img Loc: INTERVENTIONAL RADIOLOGY Service: [place] [address] (Case [id number] COMPLETE) IR PERITONEAL/RETROPERITONEAL PER(ANI Detailed) CPT:84359 Reason for Study: diverticulitis with abscess (Case [id number] COMPLETE) IR MOD SEDATION 10-22 MIN (ANI Detailed) CPT:30422 Clinical History: IS NOT under investigation for COVID-19 or is COVID-19 negative 73 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 please place abscess drain. Contact number for responsible provider who can be reached for any questions or notifications of critical findings: [phone] n/a LAST CREATININE 0.9 (06/21/24) Report Status: Verified Date Reported: JUN 22, 2024 Date Verified: JUN 22, 2024 Perinatology Physician E-Sig:/ES/LISA PENDLETON MD Report: PROCEDURES: Placement of [...] obtained. A pre-procedural Time-Out was performed per [facility] policy. The patient was placed in the supine position on the CT table. Preprocedural scan performed. The suprapubic region/lower abdominal wall was sterilely prepped and draped in the usual fashion.1% lidocaine without epinephrine was used for local anesthesia. Using real-time CT fluoroscopy, a 5 [place] Kong[place]hong centesis catheter was advanced into the collection in the left pelvis. A wire was coiled in the collection. The tract into the collection was dilated to accommodate the 12 Tanzanian locking pigtail drainage catheter. There was return [...] Primary Interpreting Staff: LISA PENDLETON MD, RADIOLOGIST (Perinatology Physician) /LISA CARDONA [facility] Jun 22, 2024 11:[address] NEEDLE PLACEMEN T (P): FLACA WEAVER [id number] -1950 M Exm Date: JUN 22, 2024@11:48 Req Phys: ANGELA HOLDEN Loc: 2K/06-22-2024@17:14 Img Loc: CT IMAGING Service: [place] [address] (Case [id number] COMPLETE) CT SCAN FOR NEEDLE PLACEMENT (CT Detailed) CPT:64905 Reason for Study: l pelvic abscess drain Clinical History: Report Status: Verified Date Reported: JUN 22, 2024 Date Verified: JUN 22, 2024 Perinatology Physician E-Sig:/ES/LISA PENDLETON MD Report: PROCEDURES: Placement of [...] obtained. A pre-procedural Time-Out was performed per [facility] policy. The patient was placed in the supine position on the CT table. Preprocedural scan performed. The suprapubic region/lower abdominal wall was sterilely prepped and draped in the usual fashion.1% lidocaine without epinephrine was used for local anesthesia. Using real-time CT fluoroscopy, a 5 Tanz[place] CorkShareesis catheter was advanced into the collection in the left pelvis. A wire was coiled in the collection. The tract into the collection was dilated to accommodate the 12 [place] locking pigtail drainage catheter. There was return [...] Primary Interpreting Staff: LISA PENDLETON MD, RADIOLOGIST (Perinatology Physician) /JRLISA [facility] Jun 21, 2024 06:[address] (AP) ABDOMEN/PE LVIS (P): FLACA WEAVER [id number] -1950 M Exm Date: JUN 21, 2024@18:09 Req Phys: MANADELIAZENAIDA Patel Loc: [facility] EMERGENCY DEPT WALK-IN (Re Img Loc: CT IMAGING Service: [place] [address] (Case [id number] COMPLETE) CT (AP) ABDOMEN/PELVIS W CONTRAST(CT Detailed) CPT:90043 Contrast Media : Non-ionic Iodinated Reason for [...] PLASMA .CREAT EGFR(CKD-E >90 Ref: >=60 Allergies: ([place] only) TERAZOSIN (Mar 13, 2015) Defer to [...] 21, 2024 Date Verified: JUN 21, 2024 Perinatology Physician E-Sig:/ALEXI/CARLOS A CUNNINGHAM DO Report: EXAMINATION: CT [...] Interpreting Staff: CARLOS A CUNNINGHAM DO, RADIOLOGIST (Perinatology Physician) /CARLOS A ROWELL [facility] Pathology Reports: +/- 30 [...] $APHDR Reporting Lab: [facility] [CLIA# [id number]] [place] [address] - - - - - - - [...] - PATHOLOGY REPORT Accession No. [id number] - - - - - - - [...] - PATHOLOGY REPORT Accession No. [id number] - - - - - - - [...] Second circumferential surgical margin, en face; E-F: Desktop Support Consultant diverticula; G: Desktop Support Consultant section of mesentery; H: Random operations support representative section of additional adipose tissue fragment. [...] One colonic tissue ring, bisected transversely. [facility]. [facility]: Microscopic examination performed. DIAGNOSIS: 1. Colon, sigmoid, sigmoidectomy-- - Diverticulosis with perforation and focal abscess formation 2. Colon, anastomotic rings, excision-- - Viable colonic mucosa without diagnostic abnormality /alexi/ EDUARDO PALOMARES MD STAFF PATHOLOGIST Signed Jul 06, 2024@10:40 Performing Laboratory: Surgical Pathology Report Performed By: [facility] [CLIA# [id number]] [place] [address] $FTR - - - - - - [...] - - FLACA WEAVER STANDARD FORM 515 ID:[id number] SEX:M :1950 AGE: 73 LOC:86172 ADM:Jun DX:DIVERTICULITIS PCP: Jatinder Cabrera /alexi/ EDUARDO PALOMARES MD STAFF PATHOLOGIST Signed: 07/06/2024 10:40 EDUARDO PALOMARES [facility] Jun 22, 2024 01:15 PM LR MICROBIOLOGY RE PORT: Reporting Lab: [facility] [CLIA# [id number]] [place] [address] Accession [UID]: [id number] [[id number]] Received: Jun 22, 2024@13:38 Collection sample: FLUID Collection date: Jun 22, 2024 13:15 Provider: ANGELA HOLDEN Comment on specimen: LLQ ABSCESS, RECEIVED IN ANAEROBIC TRANSPORT VIAL Test(s) ordered: GRAM STAIN.................... completed: Jun 22, 2024 15:03 CULTURE & SUSCEPTIBILITY...... completed: Jun 25, 2024 * BACTERIOLOGY FINAL REPORT => Jun 25, 2024 10:56 TECH CODE: [id number] GRAM STAIN: DIRECT SMEAR of specimen before [...] -=--=--=--=--=--=--=-- Performing Laboratory: Bacteriology Report Performed By: [facility] [CLIA# [id number]] [place] [address] [facility] Jun 22, 2024 01:15 PM LR MICROBIOLOGY RE PORT: Reporting Lab: [facility] [CLIA# [id number]] [place] [address] Accession [UID]: [id number] [[id number]] Received: Jun 22, 2024@13:38 Collection sample: FLUID Collection date: Jun 22, 2024 13:15 Provider: ANGELA HOLDEN Comment on specimen: LLQ ABSCESS, RECEIVED IN ANAEROBIC TRANSPORT VIAL Test(s) ordered: ANAEROBIC CULTURE............. completed: Jun 28, 2024 * BACTERIOLOGY FINAL REPORT => Jun 28, 2024 10:08 TECH CODE: [id number] CULTURE RESULTS: HEAVY GROWTH MIXED ANAEROBES Comment: including the followin+ Bacteroides fragilis 4+ Bacteroides vulgatus 4+ Clostridium innocuum Beta-lactamase negative 4+ Bacteroides caccae 4+ Parvimonas micra 4+ Bacteroides uniformis 4+ Gemella morbillorum 4+ anaerobic small, Gram Positive Rods 4+ Bacteroides thetaiotaomicron Standard workup is now complete. Bacteriology Remark(s): THIS REPORT IS FINAL =--=--=--=--=--=--=--=--=--= --=--=--=--=--=--=--=--=--=- -=--=--=--=--=--=--=-- Performing Laboratory: Bacteriology Report Performed By: [facility] [CLIA# [id number]] [place] [address] [facility] Jun 21, 2024 06:12 PM LR MICROBIOLOGY RE PORT: Reporting Lab: [facility] [CLIA# [id number]] [place] [address] Accession [UID]: [id number] [[id number]] Received: Jun 21, 2024@18:12 Collection sample: BLOOD [...] -=--=--=--=--=--=--=-- Performing Laboratory: Bacteriology Report Performed By: [facility] [CLIA# [id number]] [place] [address] [facility] Jun 21, 2024 06:11 PM LR MICROBIOLOGY RE PORT: Reporting Lab: [facility] [CLIA# [id number]] [place] [address] Accession [UID]: [id number] [[id number]] Received: Jun 21, 2024@18:11 Collection sample: BLOOD [...] -=--=--=--=--=--=--=-- Performing Laboratory: Bacteriology Report Performed By: [facility] [CLIA# [id number]] [place] [address] [facility] Jun 08, 2024 11:00 AM LR MICROBIOLOGY RE PORT: Reporting Lab: [facility] [CLIA# [id number]] [place] [address] Accession [UID]: [id number] [[id number]] Received: Jun 08, 2024@11:00 Collection sample: URINE Collection date: Jun 08, 2024 11:00 Provider: MARYBETH POWELL Comment on specimen: urine Test(s) ordered: CULTURE & SUSCEPTIBILITY...... completed: Jun 09, 2024 * BACTERIOLOGY FINAL REPORT => Jun 09, 2024 19:12 TECH CODE: [id number] CULTURE RESULTS: ESCHERICHIA COLI - Quantity: >100,000 [...] -=--=--=--=--=--=--=-- Performing Laboratory: Bacteriology Report Performed By: [facility] [CLIA# [id number]] [place] [address] [facility]
--- OUTSIDE RECORDS SUMMARY | 2024-07-16 07:15 | XMS_ITS | Encounter Summary ---
Author Name [facility] [place] [facility] [place] Address [address] [place] [address] Care Team Providers Care Procedure Tech Name Role Phone JATINDER CABRERA Primary Care [...] PART A Sep 29, 2016 PART A [phone] JUDY WEAVER PATIENT Selected Encounter This section includes the information on record at [place] for the Encounter. Date/Time Encounter Type Encounter Description Reason Provider Source Jul 05, 2024 11:53 AM PT EVAL LOW COMPLEX 20 MIN PHYSICAL THERAPY ICD-10-CM Z74.09 Other reduced mobility NIKOLAY BAILEY Alex Encounter Template Text not used by [place] Assessments - Encounter Diagnoses This section includes the primary and secondary diagnoses documented for the Encounter. Date/Time Primary/Secondary Diagnosis Diagnosis Name Provider Source Jul 05, 2024 01:06 PM PRIMARY Other reduced mobility NIKOLAY BAILEY [facility] Plan of Treatment: Future Appointments (+ 6 months) and Future Tests (+/- 45 days) The Plan of Treatment section includes future care activities for the patient from all [place] treatmentfacilities. This section includes future appointments and [...] 13, 2024 08:15 AM AMBULATORY - NONE [facility] Active, Pending, and Scheduled Orders This [...] TYPE & SCREEN - LAB BLOOD SP [facility] Jun 08, 2024 09:57 AM Laboratory - Chemi stry Order URINALYSIS URINE WC ONCE [facility] Jun 12, 2024 12:00 AM Laboratory - Chemi stry Order BNP PLASMA SP ONCE [facility] Jun 21, 2024 05:45 PM Laboratory - Blood Bank Order TYPE & SCREEN - LAB BLOOD [facility] Jul 03, 2024 12:00 AM Laboratory - Blood Bank Order TYPE & SCREEN - LAB BLOOD [facility] Jul 16, 2024 12:00 AM Laboratory - Chemi stry Order CBC BLOOD SP ONCE [facility] Jul 17, 2024 12:00 AM Laboratory - Chemi stry Order BASIC METABOLIC PANEL+MG PLASMA SP ONCE [facility] Lab Results: +/- 30 days [...] Range Comment Jul 10, 2024 07:16 AM [facility] PHOSPHORUS Specimen Type: PLASMA No comment entered. Ordering Provider: JUANCARLOS ECHOLS Report Released Date/Time: Jul 09, 2024 12:23 PM Reporting Lab: [facility] [address] Performing Lab: [facility] [address] PHOSPHORUS 3.0 mg/dL 2.3-4.3 Jul 10, 2024 07:16 AM [facility] BASIC METABOLIC PANEL+MG Specimen Type: PLASMA No comment entered. Ordering Provider: JUANCARLOS ECHOLS S Report Released Date/Time: Jul 09, 2024 12:23 PM Reporting Lab: [facility] [address] Performing Lab: [facility] [address] CREATININE 0.7 mg/dL 0.7-1.2 UREA NITROGEN 27 mg/dL H 8-26 GLUCOSE 104 mg/dL H 70-100 SODIUM 133 mmol/L L 136-145 POTASSIUM 4.3 mmol/L 3.5-5.1 CHLORIDE 102 mmol/L 98-107 CO2 19 mmol/L L 22-29 CALCIUM 10.1 mg/dL 8.4-10.2 MAGNESIUM 1.9 mg/dL 1.6-2.6 ANION GAP 12 mmol/L 5-15 .CREAT EGFR(CKD-EPI) >90 >60 Jul 10, 2024 07:15 AM [facility] CBC Specimen Type: BLOOD No comment entered. Ordering Provider: JUANCARLOS ECHOLS S Report Released Date/Time: Jul 09, 2024 12:23 PM Reporting Lab: [facility] [address] Performing Lab: [facility] [address] WBC 18.8 H 4.0-11.0 RBC 5.08 4.60-6.20 HGB 15.9 g/dL 13.5-17.9 HCT 46.8 41.0-54.0 MCV 92.1 fL 80.0-100.0 MCH 31.3 pg 27.0-33.0 MCHC 34.0 g/dL 32.0-37.5 PLT 479 H 150-400 MPV 10.2 fL 9.1-13.0 RDW 13.7 11.5-14.5 Jul 09, 2024 07:08 AM [facility] CBC Specimen Type: BLOOD No comment entered. Ordering Provider: QUYNH WEISS Report Released Date/Time: Jul 08, 2024 06:18 PM Reporting Lab: [facility] [address] Performing Lab: [facility] [address] WBC 15.3 H 4.0-11.0 RBC 4.91 4.60-6.20 HGB 15.1 g/dL 13.5-17.9 HCT 45.7 41.0-54.0 MCV 93.1 fL 80.0-100.0 MCH 30.8 pg 27.0-33.0 MCHC 33.0 g/dL 32.0-37.5 PLT 443 H 150-400 MPV 10.0 fL 9.1-13.0 RDW 13.5 11.5-14.5 Jul 08, 2024 10:50 AM [facility] URINALYSIS Specimen Type: URINE No comment entered. Ordering Provider: KATELYNN PERSON Report Released Date/Time: Jul 08, 2024 08:41 AM Reporting Lab: [facility] [phone] Performing Lab: [facility] [address] URINE COLOR YELLOW SPECIFIC GRAVITY >1.050 H [...] NEGATIVE NEGATIVE Jul 08, 2024 09:54 AM [facility] CBC Specimen Type: BLOOD Comment: Specimen received in Lab at: [id number] Ordering Provider: JUANCARLOS ECHOLS Report Released Date/Time: Jul 07, 2024 04:49 PM Reporting Lab: [facility] [address] Performing Lab: [facility] [address] WBC 17.5 H 4.0-11.0 RBC 4.88 4.60-6.20 HGB 14.9 g/dL 13.5-17.9 HCT 45.7 41.0-54.0 MCV 93.6 fL 80.0-100.0 MCH 30.5 pg 27.0-33.0 MCHC 32.6 g/dL 32.0-37.5 PLT 472 H 150-400 MPV 10.2 fL 9.1-13.0 RDW 13.7 11.5-14.5 Jul 08, 2024 09:54 AM [facility] PHOSPHORUS Specimen Type: PLASMA Comment: Specimen received in Lab at: [id number] Ordering Provider: JUANCARLOS ECHOLS Report Released Date/Time: Jul 07, 2024 04:49 PM Reporting Lab: [facility] [address] Performing Lab: [facility] [address] PHOSPHORUS 2.6 mg/dL 2.3-4.3 Jul 08, 2024 09:54 AM [facility] BASIC METABOLIC PANEL+MG Specimen Type: PLASMA Comment: Specimen received in Lab at: 0952 Ordering Provider: JUANCARLOS ECHOLS Report Released Date/Time: Jul 07, 2024 04:49 PM Reporting Lab: [facility] [address] Performing Lab: [facility] [address] CREATININE 0.9 mg/dL 0.7-1.2 UREA NITROGEN 26 mg/dL 8-26 GLUCOSE 128 mg/dL H 70-100 SODIUM 134 mmol/L L 136-145 POTASSIUM 3.4 mmol/L L 3.5-5.1 CHLORIDE 100 mmol/L 98-107 CO2 24 mmol/L 22-29 CALCIUM 9.8 mg/dL 8.4-10.2 MAGNESIUM 1.8 mg/dL 1.6-2.6 ANION GAP 10 mmol/L 5-15 .CREAT EGFR(CKD-EPI) >90 >60 Jul 07, 2024 02:00 PM [facility] C DIFF PANEL Specimen Type: FECES No comment entered. Ordering Provider: JEVON ZAZUETA Report Released Date/Time: Jul 07, 2024 12:26 PM Reporting Lab: [facility] [address] Performing Lab: [facility] [address] C DIFF TOX B GENE PCR NEGATIVE Negative Jul 07, 2024 07:41 AM [facility] PHOSPHORUS Specimen Type: PLASMA No comment entered. Ordering Provider: JEVON ZAZUETA Report Released Date/Time: Jul 06, 2024 03:44 PM Reporting Lab: [facility] [address] Performing Lab: [facility] [address] PHOSPHORUS 3.1 mg/dL 2.3-4.3 Jul 07, 2024 07:41 AM [facility] BASIC METABOLIC PANEL+MG Specimen Type: PLASMA No comment entered. Ordering Provider: JEVON ZAZUETA Report Released Date/Time: Jul 06, 2024 03:44 PM Reporting Lab: [facility] [address] Performing Lab: [facility] [address] CREATININE 0.9 mg/dL 0.7-1.2 UREA NITROGEN 20 mg/dL 8-26 GLUCOSE 157 mg/dL H 70-100 SODIUM 136 mmol/L 136-145 POTASSIUM 3.7 mmol/L 3.5-5.1 CHLORIDE 102 mmol/L 98-107 CO2 21 mmol/L L 22-29 CALCIUM 9.8 mg/dL 8.4-10.2 MAGNESIUM 1.9 mg/dL 1.6-2.6 ANION GAP 13 mmol/L 5-15 .CREAT EGFR(CKD-EPI) >90 >60 Jul 07, 2024 07:40 AM [facility] CBC Specimen Type: BLOOD No comment entered. Ordering Provider: JEVON ZAZUETA Report Released Date/Time: Jul 06, 2024 03:44 PM Reporting Lab: [facility] [address] Performing Lab: [facility] [address] WBC 21.2 H 4.0-11.0 RBC 5.09 4.60-6.20 HGB 15.9 g/dL 13.5-17.9 HCT 48.3 41.0-54.0 MCV 94.9 fL 80.0-100.0 MCH 31.2 pg 27.0-33.0 MCHC 32.9 g/dL 32.0-37.5 PLT 500 H 150-400 MPV 10.3 fL 9.1-13.0 RDW 13.6 11.5-14.5 Jul 06, 2024 07:21 AM [facility] CBC Specimen Type: BLOOD No comment entered. Ordering Provider: JEVON ZAZUETA Report Released Date/Time: Jul 05, 2024 01:22 PM Reporting Lab: [facility] [address] Performing Lab: [facility] [address] WBC 18.0 H 4.0-11.0 RBC 4.83 4.60-6.20 HGB 14.6 g/dL 13.5-17.9 HCT 45.5 41.0-54.0 MCV 94.2 fL 80.0-100.0 MCH 30.2 pg 27.0-33.0 MCHC 32.1 g/dL 32.0-37.5 PLT 368 150-400 MPV 10.4 fL 9.1-13.0 RDW 13.6 11.5-14.5 Jul 06, 2024 07:21 AM [facility] PHOSPHORUS Specimen Type: PLASMA No comment entered. Ordering Provider: JEVON ZAZUETA Report Released Date/Time: Jul 05, 2024 01:22 PM Reporting Lab: [facility] [address] Performing Lab: [facility] [address] PHOSPHORUS 3.6 mg/dL 2.3-4.3 Jul 06, 2024 07:21 AM [facility] BASIC METABOLIC PANEL+MG Specimen Type: PLASMA No comment entered. Ordering Provider: JEVON ZAZUETA Report Released Date/Time: Jul 05, 2024 01:22 PM Reporting Lab: [facility] [address] Performing Lab: [facility] [address] CREATININE 0.7 mg/dL 0.7-1.2 UREA NITROGEN 12 mg/dL 8-26 GLUCOSE 108 mg/dL H 70-100 SODIUM 138 mmol/L 136-145 POTASSIUM 3.4 mmol/L L 3.5-5.1 CHLORIDE 104 mmol/L 98-107 CO2 20 mmol/L L 22-29 CALCIUM 9.3 mg/dL 8.4-10.2 MAGNESIUM 1.9 mg/dL 1.6-2.6 ANION GAP 14 mmol/L 5-15 .CREAT EGFR(CKD-EPI) >90 >60 Jul 05, 2024 07:17 AM [facility] MAGNESIUM Specimen Type: PLASMA No comment entered. Ordering Provider: JUANCARLOS ECHOLS Report Released Date/Time: Jul 04, 2024 09:39 AM Reporting Lab: [facility] [address] Performing Lab: [facility] [address] MAGNESIUM 2.0 mg/dL 1.6-2.6 Jul 05, 2024 07:17 AM [facility] PHOSPHORUS Specimen Type: PLASMA No comment entered. Ordering Provider: JUANCARLOS ECHOLS S Report Released Date/Time: Jul 04, 2024 09:39 AM Reporting Lab: [facility] [address] Performing Lab: [facility] [address] PHOSPHORUS 2.0 mg/dL L 2.3-4.3 Jul 05, 2024 07:17 AM [facility] BASIC METABOLIC PANEL+MG Specimen Type: PLASMA No comment entered. Ordering Provider: JUANCARLOS ECHOLS S Report Released Date/Time: Jul 04, 2024 09:39 AM Reporting Lab: [facility] [address] Performing Lab: [facility] [address] CREATININE 0.7 mg/dL 0.7-1.2 UREA NITROGEN 12 mg/dL 8-26 GLUCOSE 84 mg/dL 70-100 SODIUM 135 mmol/L L 136-145 POTASSIUM 3.8 mmol/L 3.5-5.1 CHLORIDE 104 mmol/L 98-107 CO2 24 mmol/L 22-29 CALCIUM 9.3 mg/dL 8.4-10.2 MAGNESIUM 2.0 mg/dL 1.6-2.6 ANION GAP 7 mmol/L 5-15 .CREAT EGFR(CKD-EPI) >90 >60 Jul 05, 2024 07:16 AM [facility] CBC Specimen Type: BLOOD No comment entered. Ordering Provider: JUANCARLOS ECHOLS S Report Released Date/Time: Jul 04, 2024 09:39 AM Reporting Lab: [facility] [address] Performing Lab: [facility] [address] WBC 18.3 H 4.0-11.0 RBC 4.49 L 4.60-6.20 HGB 14.1 g/dL 13.5-17.9 HCT 43.4 41.0-54.0 MCV 96.7 fL 80.0-100.0 MCH 31.4 pg 27.0-33.0 MCHC 32.5 g/dL 32.0-37.5 PLT 317 150-400 MPV 10.0 fL 9.1-13.0 RDW 13.9 11.5-14.5 Jul 04, 2024 07:17 AM [facility] BASIC METABOLIC PANEL+MG Specimen Type: PLASMA No comment entered. Ordering Provider: GABINO CAMERON Report Released Date/Time: Jul 03, 2024 06:31 PM Reporting Lab: [facility] [address] Performing Lab: [facility] [address] CREATININE 0.7 mg/dL 0.7-1.2 UREA NITROGEN 16 mg/dL 8-26 GLUCOSE 129 mg/dL H 70-100 SODIUM 137 mmol/L 136-145 POTASSIUM 3.7 mmol/L 3.5-5.1 CHLORIDE 107 mmol/L 98-107 CO2 22 mmol/L 22-29 CALCIUM 9.0 mg/dL 8.4-10.2 MAGNESIUM 1.9 mg/dL 1.6-2.6 ANION GAP 8 mmol/L 5-15 .CREAT EGFR(CKD-EPI) >90 >60 Jul 04, 2024 07:17 AM [facility] PHOSPHORUS Specimen Type: PLASMA No comment entered. Ordering Provider: GABINO CAMERON Report Released Date/Time: Jul 03, 2024 06:31 PM Reporting Lab: [facility] [address] Performing Lab: [facility] [address] PHOSPHORUS 2.8 mg/dL 2.3-4.3 Jul 04, 2024 07:16 AM [facility] CBC Specimen Type: BLOOD No comment entered. Ordering Provider: GABINO CAMERON Report Released Date/Time: Jul 03, 2024 06:31 PM Reporting Lab: [facility] [address] Performing Lab: [facility] [address] WBC 20.6 H 4.0-11.0 RBC 4.63 4.60-6.20 HGB 14.2 g/dL 13.5-17.9 HCT 43.4 41.0-54.0 MCV 93.7 fL 80.0-100.0 MCH 30.7 pg 27.0-33.0 MCHC 32.7 g/dL 32.0-37.5 PLT 329 150-400 MPV 10.4 fL 9.1-13.0 RDW 13.8 11.5-14.5 Jul 04, 2024 07:16 AM [facility] CBC & DIFF Specimen Type: BLOOD Comment: Manual Differential Performed Ordering Provider: GABINO CAMERON Report Released Date/Time: Jul 03, 2024 06:31 PM Reporting Lab: [facility] [address] Performing Lab: [facility] [address] WBC 20.6 H 4.0-11.0 RBC 4.63 4.60-6.20 [...] MORPHOLOGY PRESENT Jul 04, 2024 07:15 AM [facility] BNP Specimen Type: PLASMA No comment entered. Ordering Provider: GABINO CAMERON Report Released Date/Time: Jul 03, 2024 06:31 PM Reporting Lab: [facility] [address] Performing Lab: [facility] [address] BNP 292 pg/mL H <99 Jul 03, 2024 10:32 PM [facility] FINGERSTICK GLUCOSE Specimen Type: BLOOD Comment: Save Result Nurse Notified Ordering Provider: KATELYNN PERSON Report Released Date/Time: Jul 03, 2024 10:50 PM Reporting Lab: [facility] [address] Performing Lab: [facility] [address] FINGERSTICK GLUCOSE 126 mg/dL H 70-100 Jul 03, 2024 05:33 PM [facility] FINGERSTICK GLUCOSE Specimen Type: BLOOD Comment: Save Result Nurse Notified Ordering Provider: KATELYNN PESRON Report Released Date/Time: Jul 03, 2024 05:46 PM Reporting Lab: [facility] [address] Performing Lab: [facility] [address] FINGERSTICK GLUCOSE 141 mg/dL H 70-100 Jul 03, 2024 02:31 PM [facility] POC ABG/ELECTROLYTES Specimen Type: ARTERIAL BLOOD Comment: FIO2 = 97% Patient Temp: 36.0 C Sample Type = ARTERIAL Ordering Provider: MAZIN ARREDONDO Report Released Date/Time: Jul 03, 2024 01:48 PM Reporting Lab: [facility] [address] Performing Lab: [facility] [address] POC PH 7.387 7.35-7.45 POC PCO2 34.4 [...] H 80.0-105.0 Jul 03, 2024 01:05 PM [facility] POC ABG/ELECTROLYTES Specimen Type: ARTERIAL BLOOD Comment: FIO2 = 53% Patient Temp: 36.2 C Sample Type = ARTERIAL Ordering Provider: MAZIN ARREDONDO Report Released Date/Time: Jul 03, 2024 01:48 PM Reporting Lab: [facility] [address] Performing Lab: [facility] [address] POC PH 7.280 L 7.35-7.45 POC PCO2 [...] mm[Hg] 80.0-105.0 Jul 03, 2024 06:15 AM [facility] URINALYSIS Specimen Type: URINE No comment entered. Ordering Provider: MARYBETH POWELL Report Released Date/Time: Jun 12, 2024 04:01 PM Reporting Lab: [facility] [address] Performing Lab: [facility] [address] URINE COLOR YELLOW SPECIFIC GRAVITY 1.031 1.003-1.03 [...] 250 NEGATIVE Jul 03, 2024 06:13 AM [facility] CBC Specimen Type: BLOOD No comment entered. Ordering Provider: MARYBETH POWELL Report Released Date/Time: Jun 12, 2024 03:59 PM Reporting Lab: [facility] [address] Performing Lab: [facility] [address] WBC 15.8 H 4.0-11.0 RBC 5.11 4.60-6.20 HGB 16.1 g/dL 13.5-17.9 HCT 49.1 41.0-54.0 MCV 96.1 fL 80.0-100.0 MCH 31.5 pg 27.0-33.0 MCHC 32.8 g/dL 32.0-37.5 PLT 357 150-400 MPV 9.8 fL 9.1-13.0 RDW 13.7 11.5-14.5 Jun 24, 2024 09:50 AM [facility] BASIC METABOLIC PANEL+MG Specimen Type: PLASMA Comment: Specimen received in Lab at: 0948 Ordering Provider: JEVON ZAZUETA Report Released Date/Time: Jun 23, 2024 06:07 PM Reporting Lab: [facility] [address] Performing Lab: [facility] [address] CREATININE 0.8 mg/dL 0.7-1.2 UREA NITROGEN 13 mg/dL 8-26 GLUCOSE 135 mg/dL H 70-100 SODIUM 135 mmol/L L 136-145 POTASSIUM 3.6 mmol/L 3.5-5.1 CHLORIDE 103 mmol/L 98-107 CO2 24 mmol/L 22-29 CALCIUM 9.2 mg/dL 8.4-10.2 MAGNESIUM 1.9 mg/dL 1.6-2.6 ANION GAP 8 mmol/L 5-15 .CREAT EGFR(CKD-EPI) >90 >60 Jun 24, 2024 09:50 AM [facility] CBC Specimen Type: BLOOD Comment: Specimen received in Lab at: 0948 Ordering Provider: JEVON ZAZUETA Report Released Date/Time: Jun 23, 2024 06:07 PM Reporting Lab: [facility] [address] Performing Lab: [facility] [address] WBC 15.5 H 4.0-11.0 RBC 4.93 4.60-6.20 HGB 15.2 g/dL 13.5-17.9 HCT 46.5 41.0-54.0 MCV 94.3 fL 80.0-100.0 MCH 30.8 pg 27.0-33.0 MCHC 32.7 g/dL 32.0-37.5 PLT 223 150-400 MPV 11.4 fL 9.1-13.0 RDW 13.9 11.5-14.5 Jun 23, 2024 07:52 AM [facility] COMPREHENSIVE METABOLIC PANEL+MG Specimen Type: PLASMA No comment entered. Ordering Provider: JEVON ZAZUETA Report Released Date/Time: Jun 22, 2024 05:51 PM Reporting Lab: [facility] [address] Performing Lab: [facility] [address] CREATININE 0.7 mg/dL 0.7-1.2 UREA NITROGEN 16 [...] >90 >60 Jun 23, 2024 07:52 AM [facility] CBC & DIFF Specimen Type: BLOOD Comment: Automated Differential Performed Ordering Provider: JEVON ZAZUETA Report Released Date/Time: Jun 22, 2024 05:51 PM Reporting Lab: [facility] [address] Performing Lab: [facility] [address] WBC 14.9 H 4.0-11.0 RBC 5.09 4.60-6.20 [...] 0.1 0.0-0.1 Jun 22, 2024 06:10 PM [facility] CBC Specimen Type: BLOOD No comment entered. Ordering Provider: JEVON ZAZUETA Report Released Date/Time: Jun 22, 2024 05:51 PM Reporting Lab: [facility] [address] Performing Lab: [facility] [address] WBC 16.9 H 4.0-11.0 RBC 5.28 4.60-6.20 HGB 16.9 g/dL 13.5-17.9 HCT 50.4 41.0-54.0 MCV 95.5 fL 80.0-100.0 MCH 32.0 pg 27.0-33.0 MCHC 33.5 g/dL 32.0-37.5 PLT 223 150-400 MPV 10.9 fL 9.1-13.0 RDW 14.0 11.5-14.5 Jun 22, 2024 06:10 PM [facility] COMPREHENSIVE METABOLIC PANEL+MG Specimen Type: PLASMA No comment entered. Ordering Provider: JEVON ZAZUETA Report Released Date/Time: Jun 22, 2024 05:51 PM Reporting Lab: [facility] [address] Performing Lab: [facility] [address] CREATININE 0.7 mg/dL 0.7-1.2 UREA NITROGEN 17 [...] >90 >60 Jun 21, 2024 06:48 PM [facility] URINALYSIS Specimen Type: URINE No comment entered. Ordering Provider: EDLIA MARTINEZ Report Released Date/Time: Jun 21, 2024 05:45 PM Reporting Lab: [facility] [address] Performing Lab: [facility] [address] URINE COLOR YELLOW SPECIFIC GRAVITY 1.041 H [...] 500 NEGATIVE Jun 21, 2024 05:34 PM [facility] POC CREATININE Specimen Type: BLOOD No comment entered. Ordering Provider: DELIA MARTINEZ Report Released Date/Time: Jun 21, 2024 06:07 PM Reporting Lab: [facility] [address] Performing Lab: [facility] [address] POC CREATININE 1.1 mg/dL 0.6-1.3 Jun 21, 2024 05:30 PM [facility] POC ABG/LACTATE Specimen Type: VENOUS BLOOD No comment entered. Ordering Provider: DELIA MARTINEZ Report Released Date/Time: Jun 21, 2024 06:07 PM Reporting Lab: [facility] [address] Performing Lab: [facility] [address] POC PH 7.470 H 7.31-7.41 POC PCO2 31.2 mm[Hg] L 41.00-51 .0 0 POC PO2 46 mm[Hg] H 35.0-40.0 POC TCO2 24 mmol/L 24.0-29.0 POC HCO3 22.7 mmol/L L 23.0-28.0 POC BE ECT -1 mmol/L POC SO2 85 H 70-75 POC LACTATE 1.85 mmol/L 0.90-1.70 Jun 21, 2024 05:24 PM [facility] PROTHROMBIN TIME/INR Specimen Type: PLASMA No comment entered. Ordering Provider: DELIA MARTINEZ Report Released Date/Time: Jun 21, 2024 05:30 PM Reporting Lab: [facility] [address] Performing Lab: [facility] [address] .INR 1.2 H 0.8-1.1 .PT 13.9 s H 9.4-12.5 Jun 21, 2024 05:24 PM [facility] LIPASE Specimen Type: PLASMA No comment entered. Ordering Provider: DELIA MARTINEZ Report Released Date/Time: Jun 21, 2024 05:30 PM Reporting Lab: [facility] [address] Performing Lab: [facility] [address] LIPASE 32 U/L <60 Jun 21, 2024 05:24 PM [facility] COMPREHENSIVE METABOLIC PANEL+MG Specimen Type: PLASMA No comment entered. Ordering Provider: DELIA MARTINEZ Report Released Date/Time: Jun 21, 2024 05:30 PM Reporting Lab: [facility] [address] Performing Lab: [facility] [address] CREATININE 0.9 mg/dL 0.7-1.2 UREA NITROGEN 29 [...] mg/dL <0.5 Jun 21, 2024 05:24 PM [facility] EXTRA GOLD GEL TUBE Specimen Type: SERUM No comment entered. Ordering Provider: DELIA MARTINEZ Report Released Date/Time: Jun 21, 2024 05:41 PM Reporting Lab: [facility] [address] Performing Lab: [facility] [address] EXTRA GOLD GEL TUBE RECEIVED Jun 21, 2024 05:24 PM [facility] CBC & DIFF Specimen Type: BLOOD Comment: Manual Differential Performed Ordering Provider: DELIA MARTINEZ Report Released Date/Time: Jun 21, 2024 05:30 PM Reporting Lab: [facility] [address] Performing Lab: [facility] [address] WBC 21.3 H 4.0-11.0 RBC 5.48 4.60-6.20 [...] MORPHOLOGY PRESENT Jun 08, 2024 10:59 AM [facility] PROTHROMBIN TIME/INR Specimen Type: PLASMA No comment entered. Ordering Provider: MARYBETH POWELL Report Released Date/Time: May 28, 2024 09:02 AM Reporting Lab: [facility] [address] Performing Lab: [facility] [address] .INR 1.0 0.8-1.1 .PT 11.8 s 9.4-12.5 Jun 08, 2024 10:59 AM [facility] HEMOGLOBIN A1C Specimen Type: BLOOD [...] May 28, 2024 09:02 AM Reporting Lab: [facility] [address] Performing Lab: [facility] [address] HEMOGLOBIN A1C 4.9 4.0-6.0 Jun 08, 2024 10:59 AM [facility] BASIC METABOLIC PANEL+MG Specimen Type: PLASMA No comment entered. Ordering Provider: MARYBETH POWELL Report Released Date/Time: May 28, 2024 09:02 AM Reporting Lab: [facility] [address] Performing Lab: [facility] [address] CREATININE 0.9 mg/dL 0.7-1.2 UREA NITROGEN 15 mg/dL 8-26 GLUCOSE 93 mg/dL 70-100 SODIUM 139 mmol/L 136-145 POTASSIUM 3.7 mmol/L 3.5-5.1 CHLORIDE 106 mmol/L 98-107 CO2 25 mmol/L 22-29 CALCIUM 9.8 mg/dL 8.4-10.2 MAGNESIUM 2.1 mg/dL 1.6-2.6 ANION GAP 8 mmol/L 5-15 .CREAT EGFR(CKD-EPI) >90 >60 Jun 08, 2024 10:59 AM [facility] CBC Specimen Type: BLOOD No comment entered. Ordering Provider: MARYBETH POWELL Report Released Date/Time: May 28, 2024 09:02 AM Reporting Lab: [facility] [id number] Performing Lab: [facility] [id number] WBC 16.1 H 4.0-11.0 RBC 5.02 4.60-6.20 HGB 16.0 g/dL 13.5-17.9 HCT 47.1 41.0-54.0 MCV 93.8 fL 80.0-100.0 MCH 31.9 pg 27.0-33.0 MCHC 34.0 g/dL 32.0-37.5 PLT 228 150-400 MPV 10.3 fL 9.1-13.0 RDW 14.6 H 11.5-14.5 Vital Signs: All taken on the encounter date This section contains inpatient and outpatient Vital Signs collected on the date of the Encounter. Date/Time Temperature Pulse Blood Pressure Respiratory Rate SP02 Pain Height Weight Body Mass Index Source Jul 05, 2024 08:[address] [facility] Jul 05, 2024 05:[address] [facility] Jul 05, 2024 04:[address] [facility] Jul 05, 2024 04:51 PM 98.5 97 147/[address] [facility] Jul 05, 2024 03:[address] [facility] Social History: Smoking Status [...] Date/Time Current Smoking Status Comment Juan Manuel itcherie May 15, 2024 08:30 AM VA-TOBACCO FORMER USER [facility] Tobacco Use History This section includes a history of the smoking, or tobacco-related health factors, that were collected on or before the date of the Encounter. The data comes from the [place] facility where the Encounter took place. Date/Time Smoking Status/Tobacco Use Comment F acility May 15, 2024 08:30 AM [place]-TOBACCO QUIT 15 YRS OR MORE [facility] May 06, 2023 11:30 AM VA-TOBACCO FORMER USER [facility] May 06, 2023 11:30 AM VA-TOBACCO QUIT 15 YRS OR MORE [facility] Jun 04, 2022 09:00 AM VA-TOBACCO FORMER USER [facility] Jun 04, 2022 09:00 AM VA-TOBACCO QUIT 15 YRS OR MORE [facility] Jul 10, 2021 08:00 AM VA-TOBACCO FORMER USER [facility] Jul 10, 2021 08:00 AM VA-TOBACCO QUIT 5 TO < 15 YRS [facility] May 23, 2020 08:30 AM VA-TOBACCO FORMER USER [facility] May 23, 2020 08:30 AM VA-TOBACCO QUIT 5 TO < 15 YRS [facility] Mar 20, 2019 04:03 PM VA-TOBACCO FORMER USER [facility] Mar 20, 2019 04:03 PM VA-TOBACCO QUIT 5 TO < 15 YRS [facility] Mar 21, 2018 08:13 AM FORMER TOBACCO USER 7Y OR GREATE R [facility] Feb 24, 2017 09:24 AM FORMER TOBACCO USER 7Y OR GREATE R [facility] January 07, 2016 08:01 AM FORMER TOBACCO USE >1Y <7Y [facility] Feb 03, 2015 07:58 AM FORMER TOBACCO USE <1Y [facility] Feb 26, 2014 08:41 AM CURRENT TOBACCO USER [facility] May 13, 2011 01:45 PM CURRENT TOBACCO USER [facility] Advance Directives: All historical and [...] 23, 2016 CLINICAL WARNING [facility] Radiology Reports: +/- 30 days [...] VIEWS PA A ND LAT: FLACA WEAVER [id number] -[id number] M Exm Date: JUL 08, 2024@10:09 Req Phys: KATELYNN PERSON Pat Loc: 2KG/07-08-2024@11:49 Img Loc: MAIN X-RAY Service: [id number] [place] [address] (Case 24 COMPLETE) CHEST 2 VIEWS PA AND LAT (RAD Detailed) CPT:28703 Reason for Study: Uptrending WBC, POD 5 [...] 08, 2024 Date Verified: JUL 08, 2024 Tobacco Drummer E-Sig: Report: CHEST 2 VIEWS PA AND [...] cardiopulmonary disease. READING PHYSICIAN: Sarbjit Vaughn M.D. -[phone] 07/08/2024 12:46 EST [facility] National Teleradiology Program [phone] (For Medical Practitioner Use Only) Attention Patients / Veterans: If you have questions or concerns about these test results, please contact your ordering provider or primary care team. Primary Interpreting Staff: RADIOLOGY,OUTSIDE SERVICE, Staff Physician / RADIOLOGY,OUTSIDE SERVICE [facility] Jul 08, 2024 10:[address] (AP) ABDOMEN/PE LVIS W CONTRAST: FLACA WEAVER [id number] -1950 M Exm Date: JUL 08, 2024@10:00 Req Phys: KATELYNN PERSON Loc: 2KG/07-08-2024@12:07 [facility] Loc: CT IMAGING Service: [place] [address] (Case 22 COMPLETE) CT (AP) ABDOMEN/PELVIS W CONTRAST(CT Detailed) CPT:36665 Contrast Media : Non-ionic Iodinated Reason for [...] PLASMA .CREAT EGFR(CKD-E >90 Ref: >=60 Allergies: ([place] only) TERAZOSIN (Mar 13, 2015) Report Status: Verified Date Reported: JUL 08, 2024 Date Verified: JUL 08, 2024 Tobacco Drummer E-Sig: Report: CT (AP) ABDOMEN/PELVIS W CONTRAST [...] as noted above READING PHYSICIAN: Celestino Blanc -[phone] 07/08/2024 13:04 [facility] [employer] Teleradiology Program [phone] (For Medical Practitioner Use Only) Attention Patients / Veterans: If you have questions or concerns about these test results, please contact your ordering provider or primary care team. Primary Interpreting Staff: RADIOLOGY,OUTSIDE SERVICE, Staff Physician / RADIOLOGY,OUTSIDE SERVICE [facility] Jun 22, 2024 11:49 AM ABSCESS DRAIN PLAC EMENT PERITONEAL (P): FLACA WEAVER [id number] -1950 M Exm Date: JUN 22, 2024@11:49 Req Phys: ANGELA HOLDEN Loc: [facility]06-22-2024@17:14 Img Loc: INTERVENTIONAL RADIOLOGY Service: [place] [address] (Case [id number] COMPLETE) IR PERITONEAL/RETROPERITONEAL PER(ANI Detailed) CPT:58445 Reason for Study: diverticulitis with abscess (Case 3570 COMPLETE) IR MOD SEDATION 10-22 MIN (ANI Detailed) CPT:43657 Clinical History: Vernonia IS NOT under investigation for COVID-19 or is COVID-19 negative 73 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 please place abscess drain. Contact number for responsible provider who can be reached for any questions or notifications of critical findings: [phone] n/a LAST CREATININE 0.9 (06/21/24) Report Status: Verified Date Reported: JUN 22, 2024 Date Verified: JUN 22, 2024 Tobacco Drummer E-Sig:/ES/LISA PENDLETON MD Report: PROCEDURES: Placement of [...] obtained. A pre-procedural Time-Out was performed per [facility] policy. The patient was placed in the supine position on the CT table. Preprocedural scan performed. The suprapubic region/lower abdominal wall was sterilely prepped and draped in the usual fashion.1% lidocaine without epinephrine was used for local anesthesia. Using real-time CT fluoroscopy, a 5 [place] Traddr.comesis catheter was advanced into the collection in [...] Primary Interpreting Staff: LISA PENDLETON MD, RADIOLOGIST (Tobacco Drummer) /JRT LISA PENDLETON [facility] Jun 22, 2024 11:[address] NEEDLE PLACEMEN T (P): FLACA WEAVER [id number] -1950 M Exm Date: JUN 22, 2024@11:48 Req Phys: ANGELA HOLDEN [facility] Loc: [facility]/06-22-2024@17:14 Img Loc: CT IMAGING Service: [place] [address] (Case [id number] COMPLETE) CT SCAN FOR NEEDLE PLACEMENT (CT Detailed) CPT:49609 Reason for Study: l pelvic abscess drain Clinical History: Report Status: Verified Date Reported: JUN 22, 2024 Date Verified: JUN 22, 2024 Tobacco Drummer E-Sig:/ES/LISA PENDLETON MD Report: PROCEDURES: Placement of [...] obtained. A pre-procedural Time-Out was performed per [facility] policy. The patient was placed in the supine position on the CT table. Preprocedural scan performed. The suprapubic region/lower abdominal wall was sterilely prepped and draped in the usual fashion.1% lidocaine without epinephrine was used for local anesthesia. Using real-time CT fluoroscopy, a 5 [place] Traddr.comesis catheter was advanced into the collection in [...] Primary Interpreting Staff: LISA PENDLETON MD, RADIOLOGIST (Tobacco Drummer) /JRT LISA PENDLETON [facility] Jun 21, 2024 06:[address] (AP) ABDOMEN/PE LVIS (P): FLACA WEAVER [id number] -1950 M Exm Date: JUN 21, 2024@18:09 Req Phys: DELIA MARTINEZ Loc: [facility] EMERGENCY DEPT WALK-IN (Re Img Loc: CT IMAGING Service: [place] [address] (Case [id number] COMPLETE) CT (AP) ABDOMEN/PELVIS W CONTRAST(CT Detailed) CPT:42516 Contrast Media : Non-ionic Iodinated Reason for [...] PLASMA .CREAT EGFR(CKD-E >90 Ref: >=60 Allergies: ([place] only) TERAZOSIN (Mar 13, 2015) Defer to [...] 21, 2024 Date Verified: JUN 21, 2024 Tobacco Drummer E-Sig:/ES/CARLOS A CUNNINGHAM DO Report: EXAMINATION: CT [...] Interpreting Staff: CARLOS A CUNNINGHAM DO, RADIOLOGIST (Tobacco Drummer) /CARLOS A ROWELL [facility] Pathology Reports: +/- 30 days [...] COSIGNER: URGENCY: STATUS: COMPLETED $APHDR Reporting Lab: [facility] [CLIA# [id number]] [place] [address] - - - - - - - [...] - PATHOLOGY REPORT Accession No. [id number] - - - - - - - [...] - PATHOLOGY REPORT Accession No. [id number] - - - - - - - [...] Second circumferential surgical margin, en face; E-F: Butadiene Convertor Operator diverticula; G: Butadiene Convertor Operator section of mesentery; H: Random group sales representative section of additional adipose tissue [...] One colonic tissue ring, bisected transversely. [facility]. (D[facility]: Microscopic examination performed. DIAGNOSIS: 1. Colon, sigmoid, sigmoidectomy-- - Diverticulosis with perforation and focal abscess formation 2. Colon, anastomotic rings, excision-- - Viable colonic mucosa without diagnostic abnormality /alexi/ EDUARDO PALOMARES MD STAFF PATHOLOGIST Signed Jul 06, 2024@10:40 Performing Laboratory: Surgical Pathology Report Performed By: [facility] [CLIA# [id number]] [place] [address] $FTR - - - - - - [...] - - FLACA WEAVER STANDARD FORM 515 ID:[id number] SEX:M :1950 AGE: 73 LOC:70317 ADM:Jun DX:DIVERTICULITIS PCP: Jatinder Cabrera /alexi/ EDUARDO PALOMARES MD STAFF PATHOLOGIST Signed: 07/06/2024 10:40 EDUARDO PALOMARES [facility] Jun 22, 2024 01:15 PM LR MICROBIOLOGY RE PORT: Reporting Lab: [facility] [CLIA# [id number]] [place] [address] Accession [UID]: [id number] [[id number]] Received: Jun 22, 2024@13:38 Collection sample: FLUID Collection date: Jun 22, 2024 13:15 Provider: ANGELA HOLDEN Comment on specimen: LLQ ABSCESS, RECEIVED IN ANAEROBIC TRANSPORT VIAL Test(s) ordered: GRAM STAIN.................... completed: Jun 22, 2024 15:03 CULTURE & SUSCEPTIBILITY...... completed: Jun 25, 2024 * BACTERIOLOGY FINAL REPORT => Jun 25, 2024 10:[address] [facility] CODE: [id number] GRAM STAIN: DIRECT SMEAR of specimen before [...] -=--=--=--=--=--=--=-- Performing Laboratory: Bacteriology Report Performed By: [facility] [CLIA# [id number]] [place] [address] [facility] Jun 22, 2024 01:15 PM LR MICROBIOLOGY RE PORT: Reporting Lab: [facility] [CLIA# [id number]] [place] [address] Accession [UID]: [id number] [[id number]] Received: Jun 22, 2024@13:38 Collection sample: FLUID Collection date: Jun 22, 2024 13:15 Provider: ANGELA HOLDEN Comment on specimen: LLQ ABSCESS, RECEIVED IN ANAEROBIC TRANSPORT VIAL Test(s) ordered: ANAEROBIC CULTURE............. completed: Jun 28, 2024 * BACTERIOLOGY FINAL REPORT => Jun 28, 2024 10:08 TECH CODE: [id number] CULTURE RESULTS: HEAVY GROWTH MIXED ANAEROBES Comment: including the followin+ Bacteroides fragilis 4+ Bacteroides vulgatus 4+ Clostridium innocuum Beta-lactamase negative 4+ Bacteroides caccae 4+ Parvimonas micra 4+ Bacteroides uniformis 4+ Gemella morbillorum 4+ anaerobic small, Gram Positive Rods 4+ Bacteroides thetaiotaomicron Standard workup is now complete. Bacteriology Remark(s): THIS REPORT IS FINAL =--=--=--=--=--=--=--=--=--= --=--=--=--=--=--=--=--=--=- -=--=--=--=--=--=--=-- Performing Laboratory: Bacteriology Report Performed By: [facility] [CLIA# [id number]] [place] [address] [facility] Jun 21, 2024 06:12 PM LR MICROBIOLOGY RE PORT: Reporting Lab: [facility] [CLIA# [id number]] [place] [address] Accession [UID]: [id number] [[id number]] Received: Jun 21, 2024@18:12 Collection sample: BLOOD [...] -=--=--=--=--=--=--=-- Performing Laboratory: Bacteriology Report Performed By: [facility] [CLIA# [id number]] [place] [address] [facility] Jun 21, 2024 06:11 PM LR MICROBIOLOGY RE PORT: Reporting Lab: [facility] [CLIA# [id number]] [place] [address] Accession [UID]: [id number] [[id number]] Received: Jun 21, 2024@18:11 Collection sample: BLOOD [...] -=--=--=--=--=--=--=-- Performing Laboratory: Bacteriology Report Performed By: [facility] [CLIA# [id number]] [place] [address] [facility] Jun 08, 2024 11:00 AM LR MICROBIOLOGY RE PORT: Reporting Lab: [facility] [CLIA# [id number]] [place] [address] Accession [UID]: [id number] [[id number]] Received: Jun 08, 2024@11:00 Collection sample: URINE Collection date: Jun 08, 2024 11:00 Provider: MARYBETH POWELL Comment on specimen: urine Test(s) ordered: CULTURE & SUSCEPTIBILITY...... completed: Jun 09, 2024 * BACTERIOLOGY FINAL REPORT => Jun 09, 2024 19:12 TECH CODE: [id number] CULTURE RESULTS: ESCHERICHIA COLI - Quantity: >100,000 [...] -=--=--=--=--=--=--=-- Performing Laboratory: Bacteriology Report Performed By: [facility] [CLIA# [id number]] [place] [address] [facility] Encounter Notes: All associated encounter notes This section contains the clinical notes associated to the Encounter. Date/Time Encounter Note(s) Provider Source Jul 05, 2024 11:53 AM PHYSICAL THERAPY C ONSULT: LOCAL TITLE: PHYSICAL THERAPY CONSULT STANDARD TITLE: PHYSICAL THERAPY CONSULT DATE OF NOTE: JUL 05, 2024@11:53 ENTRY DATE: JUL 05, 2024@11:53:36 AUTHOR: NIKOLAY BAILEY COSIGNER: URGENCY: STATUS: COMPLETED PHYSICAL THERAPY EVALUATION - INPATIENT Date of Service: Jun Treatment: Physical therapy bandar rowell Medical Diagnosis: s/p colectomy with ostomy Treatment Diagnosis: Weakness, Other: reduced mobility Restrictions: Other: no lifting >20# x 4 weeks SUBJECTIVE: Patient is a 73 year old MALE referred to PT for eval and treat in the setting of diverticulitis s/p colectomy with ostomy. Physical therapy requested for ongoing therapy needs and dispo recs. Upon entering the room stated he was not willing to get out of bed. Further discussed rationale for not being willing to mobilize and agreed it was not due to pain, or fatigue but simply does not want to. Home Environment: Style: Single-level Home Stairs: 1 KT with split level home with 8 stairs up/ down. Layout: Bedroom Location: Main Level Bathroom Location: Main Level Home Accessibility Issues: Stairs throughout Support System: Lives with significant other, reports he typically care for her for the most part PLOF: Drives, SO does not drive Locomotion: Ambulatory for Community Distances (> 900 ft) Assistive Devices: Ind s/ AD Transfers: Modified Independent ADLs: Modified Independent IADLs: Modified Independent Comments: reports SO does the laundry otherwise does majority of IADLs History of falls: No: Has not fallen within the last 6 months. Pain: Location: generally pain is well controlled, denied pain at rest, with activity, reports pain is low, it isn't bad OBJECTIVE: seen bedside, do treat with OT Orientation: respond appropriately to questions though agitated throughout session, generally aggressive tone and demeanor throughout. Vitals: Supine BP: 146/67 HR: 52 SpO2: % Sensation: Additional Information: Denied change Edema/Skin Integrity: Intact to exposed skin. Range of Motion: Both LE are within normal limits. MANUAL MUSCLE TESTING/STRENGTH Both Lower Extremities > 3+/5 via observation during evaluation. FUNCTIONAL MOBILITY: initially declining all functional mobility asking for therapy to return later. Explained rationale for mobility and the fact that he may be even more fatigued later in the day. He was not declining due to pain, fatigue or any particular reason other than didn't want to. As process description writer was explaining this, became agitated and sat up and stood up out of bed with a frustrated/ angry demeanor. Mobilizing IND holding onto IV pole. Bed Mobility: Supine to sit Modified Independent Sit to Supine Modified Independent Transfers: Sit to Stand/Stand to Sit: Modified Independent Bed to Chair/Chair to Bed Modified Independent Balance: Additional information: Overall steady ambulation Ambulation: Patient ambulated 150' holding onto IV pole, fast gait speed, agitated, frustration with being asked to move . Description: . Gait Speed: 0.817 m/s (>0.8 m/s) Indicates safe community ambulator and no need for falls intervention. (0.4 - 0.8 m/s) Indicates limited community ambulator and potential need for falls intervention. (<0.4 m/s) Indicates increased risk for falls, re-hospitalization and more likely to be dependent c/ ADLs/ IADLs Stairs: Not tested 2/2 declined. Falls Risk: Patient is Low risk for falls. Injury Risk: Increased 2/2 Post-operative status Activity recommendations: Patient to ambulate independent on [place] 3-5x/day, IND with all transfers Patient Education: Discussed post op restrictions with , educated on safety with mobility and lines/ tubes. Discussed mutual respect for medical record clerk. - Vet resting comfortably following session, call light in reach, and all requested needs met. ASSESSMENT: Pt presents today with mod I transfers, ambulation. [place] adamantly declined stair mobility this date and has no interest in future PT sessions. was agitated throughout session demonstrating frustration at being asked simple post op expectations. At this time, is not appropriate for additional follow up , he appears to have the strength, balance and endurance to return home once medically stable and be able to complete the stairs. Pt denies further questions or concerns. Pt has no further acute PT needs. Response to treatment: Tolerated session adequality, agitated throughout session and declined participation portions of session, specifically stairs. Patient presents to Physical Therapy as: Stable Clinical Decision Making was: Low Anticipated Function: Intermittent Assist Prognosis: Good Discharge recommendations: Home PLAN: D/c from acute PT services. Please see assessment paragraph for details and discharge recommendations. Patient indicates readiness to learn, verbalizes understanding, agreement and satisfaction with the treatment plan. Denies further questions. /alexi/ Nikolay Bailey PT, DPT, NCS Physical Therapist Signed: 07/05/2024 13:07 NIKOLAY BAILEY [facility]
--- OUTSIDE RECORDS SUMMARY | 2024-07-16 07:15 | XMS_ITS | Encounter Summary ---
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 Date/Time Encounter Type Encounter Description Reason Provider Source Jul 05, 2024 12:43 PM [facility] IP/OBS MODERATE 35 GENERAL INTERNAL MEDICINE ICD-10-CM I50.22 Chronic systolic (congestive) heart failure JEVON ZAZUETA [facility] Encounter Template Text not used by [place] Assessments - Encounter Diagnoses This section includes the primary and secondary diagnoses documented for the Encounter. Date/Time Primary/Secondary Diagnosis Diagnosis Name Provider Source Jul 05, 2024 01:17 PM PRIMARY Chronic systolic (congestive) heart failure JEVON ZAZUETA [facility] Jul 05, 2024 01:17 PM SECONDARY Athscl heart disease of [place] coronary artery w/o ang pctrs JEVON ZAZUETA [facility] Jul 05, 2024 01:17 PM SECONDARY Bradycardia, unspecified JEVON ZAZUETA [facility] Jul 05, 2024 01:17 PM SECONDARY Essential (primary) hypertension JEVON ZAZUETA [facility] Jul 05, 2024 01:17 PM SECONDARY Impaired fasting glucose JEVON ZAZUETA [facility] Plan of Treatment: Future Appointments (+ 6 months) and Future Tests (+/- 45 days) The Plan of Treatment section includes future care activities for the patient from all [place] [facility] This section includes future appointments and future orders which are active, pending or scheduled. Future Appointments This section includes appointments that were scheduled to occur 6 months from the date of the Encounter, up to a maximum of 20 appointments. The data comes from all [facility] facilities. Appointment Date/Time Appointment Type Appointme nt Facility Name Jul 13, 2024 08:15 AM AMBULATORY - NONE [facility] Active, Pending, and [...] of theEncounter. The data comes from all [facility]. Test Date/Time Test Type Test Details Facility Name May 28, 2024 12:00 AM Laboratory - Blood Bank Order TYPE & SCREEN - LAB BLOOD [facility] Jun 08, 2024 09:57 AM Laboratory - Chemi stry Order URINALYSIS URINE ONCE [facility] Jun 12, 2024 12:00 AM Laboratory - Chemi stry Order BNP PLASMA SP ONCE [facility] Jun 21, 2024 05:45 PM Laboratory - Blood Bank Order TYPE & SCREEN - LAB BLOOD [facility] Jul 03, 2024 12:00 AM Laboratory - Blood Bank Order TYPE & SCREEN - LAB BLOOD [facility] Jul 16, 2024 12:00 AM [...] Jul 09, 2024 12:23 PM Reporting Lab: [facility] [address] Performing Lab: [facility] [address] PHOSPHORUS 3.0 mg/dL 2.3-4.3 Jul 10, 2024 07:16 AM [facility] BASIC METABOLIC PANEL+MG Specimen Type: PLASMA No comment entered. Ordering Provider: JUANCARLOS ECHOLS S Report Released Date/Time: Jul 09, 2024 12:23 PM Reporting Lab: [facility] [address] Performing Lab: [facility] [address] CREATININE 0.7 mg/dL 0.7-1.2 UREA NITROGEN 27 [...] Jul 09, 2024 12:23 PM Reporting Lab: [facility] [address] Performing Lab: [facility] [address] WBC 18.8 H 4.0-11.0 RBC 5.08 4.60-6.20 [...] Jul 08, 2024 06:18 PM Reporting Lab: [facility] [address] Performing Lab: [facility] [address] WBC 15.3 H 4.0-11.0 RBC 4.91 4.60-6.20 [...] Jul 08, 2024 08:41 AM Reporting Lab: [facility] [address] Performing Lab: [facility] [address] URINE COLOR YELLOW SPECIFIC GRAVITY >1.050 H [...] Jul 07, 2024 04:49 PM Reporting Lab: [facility] [address] Performing Lab: [facility] [address] WBC 17.5 H 4.0-11.0 RBC 4.88 4.60-6.20 [...] Jul 07, 2024 04:49 PM Reporting Lab: [facility] [address] Performing Lab: [facility] [address] PHOSPHORUS 2.6 mg/dL 2.3-4.3 Jul 08, 2024 09:54 AM [facility] BASIC METABOLIC PANEL+MG Specimen Type: PLASMA Comment: Specimen received in Lab at: [id number] Ordering Provider: JUANCARLOS ECHOLS Report Released Date/Time: Jul 07, 2024 04:49 PM Reporting Lab: [facility] [address] Performing Lab: [facility] [address] CREATININE 0.9 mg/dL 0.7-1.2 UREA NITROGEN 26 [...] Jul 07, 2024 12:26 PM Reporting Lab: [facility] [address] Performing Lab: [facility] [address] C DIFF TOX B GENE PCR NEGATIVE Negative Jul 07, 2024 07:41 AM [facility] PHOSPHORUS Specimen Type: PLASMA No comment entered. Ordering Provider: JEVON ZAZUETA Report Released Date/Time: Jul 06, 2024 03:44 PM Reporting Lab: [facility] [address] Performing Lab: [facility] [address] PHOSPHORUS 3.1 mg/dL 2.3-4.3 Jul 07, 2024 07:41 AM [facility] BASIC METABOLIC PANEL+MG Specimen Type: PLASMA No comment entered. Ordering Provider: JEVON ZAZUETA Report Released Date/Time: Jul 06, 2024 03:44 PM Reporting Lab: [facility] [address] Performing Lab: [facility] [address] CREATININE 0.9 mg/dL 0.7-1.2 UREA NITROGEN 20 [...] Jul 06, 2024 03:44 PM Reporting Lab: [facility] [address] Performing Lab: [facility] [address] WBC 21.2 H 4.0-11.0 RBC 5.09 4.60-6.20 [...] Jul 05, 2024 01:22 PM Reporting Lab: [facility] [address] Performing Lab: [facility] [address] WBC 18.0 H 4.0-11.0 RBC 4.83 4.60-6.20 [...] Jul 05, 2024 01:22 PM Reporting Lab: [facility] [address] Performing Lab: [facility] [address] PHOSPHORUS 3.6 mg/dL 2.3-4.3 Jul 06, 2024 07:21 AM [facility] BASIC METABOLIC PANEL+MG Specimen Type: PLASMA No comment entered. Ordering Provider: JEVON ZAZUETA Report Released Date/Time: Jul 05, 2024 01:22 PM Reporting Lab: [facility] [address] Performing Lab: [facility] [address] CREATININE 0.7 mg/dL 0.7-1.2 UREA NITROGEN 12 [...] Jul 04, 2024 09:39 AM Reporting Lab: [facility] [address] Performing Lab: [facility] [address] MAGNESIUM 2.0 mg/dL 1.6-2.6 Jul 05, 2024 07:17 AM [facility] PHOSPHORUS Specimen Type: PLASMA No comment entered. Ordering Provider: JUANCARLOS ECHOLS S Report Released Date/Time: Jul 04, 2024 09:39 AM Reporting Lab: [facility] [address] Performing Lab: [facility] [address] PHOSPHORUS 2.0 mg/dL L 2.3-4.3 Jul 05, 2024 07:17 AM [facility] BASIC METABOLIC PANEL+MG Specimen Type: PLASMA No comment entered. Ordering Provider: JUANCARLOS ECHOLS S Report Released Date/Time: Jul 04, 2024 09:39 AM Reporting Lab: [facility] [address] Performing Lab: [facility] [address] CREATININE 0.7 mg/dL 0.7-1.2 UREA NITROGEN 12 [...] Jul 04, 2024 09:39 AM Reporting Lab: [facility] [address] Performing Lab: [facility] [address] WBC 18.3 H 4.0-11.0 RBC 4.49 L [...] Jul 03, 2024 06:31 PM Reporting Lab: [facility] [address] Performing Lab: [facility] [address] CREATININE 0.7 mg/dL 0.7-1.2 UREA NITROGEN 16 mg/dL 8-26 GLUCOSE 129 mg/dL H 70-100 SODIUM 137 mmol/L 136-145 POTASSIUM 3.7 mmol/L 3.5-5.1 CHLORIDE 107 mmol/L 98-107 CO2 22 mmol/L 22-29 CALCIUM 9.0 mg/dL 8.4-10.2 MAGNESIUM 1.9 mg/dL 1.6-2.6 ANION GAP 8 mmol/L 5-15 .CREAT EGFR(CKD-EPI) >90 >60 Jul 04, 2024 07:17 AM [facility] PHOSPHORUS Specimen Type: PLASMA No comment entered. Ordering Provider: GABINO CAMERON Report Released Date/Time: Jul 03, 2024 06:31 PM Reporting Lab: [facility] [address] Performing Lab: [facility] [address] PHOSPHORUS 2.8 mg/dL 2.3-4.3 Jul 04, 2024 07:16 AM [facility] CBC Specimen Type: BLOOD No comment entered. Ordering Provider: GABINO CAMERON Report Released Date/Time: Jul 03, 2024 06:31 PM Reporting Lab: [facility] [address] Performing Lab: [facility] [address] WBC 20.6 H 4.0-11.0 RBC 4.63 4.60-6.20 [...] Jul 03, 2024 06:31 PM Reporting Lab: [facility] [address] Performing Lab: [facility] [address] WBC 20.6 H 4.0-11.0 RBC 4.63 4.60-6.20 [...] Jul 03, 2024 06:31 PM Reporting Lab: [facility] [address] Performing Lab: [facility] [address] BNP 292 pg/mL H <99 Jul 03, 2024 10:32 PM [facility] FINGERSTICK GLUCOSE Specimen Type: BLOOD Comment: Save Result Nurse Notified Ordering Provider: KATELYNN PERSON Report Released Date/Time: Jul 03, 2024 10:50 PM Reporting Lab: [facility] [address] Performing Lab: [facility] [address] FINGERSTICK GLUCOSE 126 mg/dL H 70-100 Jul 03, 2024 05:33 PM [facility] FINGERSTICK GLUCOSE Specimen Type: BLOOD Comment: Save Result Nurse Notified Ordering Provider: KATELYNN PERSON Report Released Date/Time: Jul 03, 2024 05:46 PM Reporting Lab: [facility] [address] Performing Lab: [facility] [address] FINGERSTICK GLUCOSE 141 mg/dL H [address] Jul 03, 2024 02:31 PM [facility] POC ABG/ELECTROLYTES Specimen Type: ARTERIAL BLOOD Comment: FIO2 = 97% Patient Temp: 36.0 C Sample Type = ARTERIAL Ordering Provider: MAZIN ARREDONDO Report Released Date/Time: Jul 03, 2024 01:48 PM Reporting Lab: [facility] [address] Performing Lab: [facility] [address] POC PH 7.387 7.35-7.45 POC PCO2 34.4 [...] Jul 03, 2024 01:48 PM Reporting Lab: [facility] [address] Performing Lab: [facility] [address] POC PH 7.280 L 7.35-7.45 POC PCO2 [...] Jun 12, 2024 04:01 PM Reporting Lab: [facility] [address] Performing Lab: [facility] [address] URINE COLOR YELLOW SPECIFIC GRAVITY 1.031 1.003-1.03 [...] Jun 12, 2024 03:59 PM Reporting Lab: [facility] [address] Performing Lab: [facility] [address] WBC 15.8 H 4.0-11.0 RBC 5.11 4.60-6.20 [...] Jun 23, 2024 06:07 PM Reporting Lab: [facility] [address] Performing Lab: [facility] [address] CREATININE 0.8 mg/dL 0.7-1.2 UREA NITROGEN 13 [...] Jun 23, 2024 06:07 PM Reporting Lab: [facility] [address] Performing Lab: [facility] [address] WBC 15.5 H 4.0-11.0 RBC 4.93 4.60-6.20 [...] Jun 22, 2024 05:51 PM Reporting Lab: [facility] [address] Performing Lab: [facility] [address] CREATININE 0.7 mg/dL 0.7-1.2 UREA NITROGEN 16 [...] Jun 22, 2024 05:51 PM Reporting Lab: [facility] [address] Performing Lab: [facility] [address] WBC 14.9 H 4.0-11.0 RBC 5.09 4.60-6.20 [...] Jun 22, 2024 05:51 PM Reporting Lab: [facility] [address] Performing Lab: [facility] [address] WBC 16.9 H 4.0-11.0 RBC 5.28 4.60-6.20 [...] Jun 22, 2024 05:51 PM Reporting Lab: [facility] [address] Performing Lab: [facility] [address] CREATININE 0.7 mg/dL 0.7-1.2 UREA NITROGEN 17 [...] Jun 21, 2024 05:45 PM Reporting Lab: [facility] [address] Performing Lab: [facility] [address] URINE COLOR YELLOW SPECIFIC GRAVITY 1.041 H [...] Jun 21, 2024 06:07 PM Reporting Lab: [facility] [address] Performing Lab: [facility] [address] POC CREATININE 1.1 mg/dL 0.6-1.3 Jun 21, 2024 05:30 PM [facility] POC ABG/LACTATE Specimen Type: VENOUS BLOOD No comment entered. Ordering Provider: DELIA MARTINEZ Report Released Date/Time: Jun 21, 2024 06:07 PM Reporting Lab: [facility] [address] Performing Lab: [facility] [address] POC PH 7.470 H 7.31-7.41 POC PCO2 [...] Jun 21, 2024 05:30 PM Reporting Lab: [facility] [address] Performing Lab: [facility] [address] .INR 1.2 H 0.8-1.1 .PT 13.9 s H 9.4-12.5 Jun 21, 2024 05:24 PM [facility] LIPASE Specimen Type: PLASMA No comment entered. Ordering Provider: DELIA MARTINEZ Report Released Date/Time: Jun 21, 2024 05:30 PM Reporting Lab: [facility] [address] Performing Lab: [facility] [address] LIPASE 32 U/L <60 Jun 21, 2024 05:24 PM [facility] EXTRA GOLD GEL TUBE Specimen Type: SERUM No comment entered. Ordering Provider: DELIA MARTINEZ Report Released Date/Time: Jun 21, 2024 05:41 PM Reporting Lab: [facility] [address] Performing Lab: [facility] [address] EXTRA GOLD GEL TUBE RECEIVED Jun 21, 2024 05:24 PM [facility] COMPREHENSIVE METABOLIC PANEL+MG Specimen Type: PLASMA No comment entered. Ordering Provider: DELIA MARTINEZ Report Released Date/Time: Jun 21, 2024 05:30 PM Reporting Lab: [facility] [address] Performing Lab: [facility] [address] CREATININE 0.9 mg/dL 0.7-1.2 UREA NITROGEN 29 [...] Jun 21, 2024 05:30 PM Reporting Lab: [facility] [address] Performing Lab: [facility] [address] WBC 21.3 H 4.0-11.0 RBC 5.48 4.60-6.20 [...] May 28, 2024 09:02 AM Reporting Lab: [facility] [address] Performing Lab: [facility] [address] .INR 1.0 0.8-1.1 .PT 11.8 s 9.4-12.5 [...] May 28, 2024 09:02 AM Reporting Lab: [facility] [address] Performing Lab: [facility] [address] HEMOGLOBIN A1C 4.9 4.0-6.0 Jun 08, 2024 10:59 AM [facility] CBC Specimen Type: BLOOD No comment entered. Ordering Provider: MARYBETH POWELL Report Released Date/Time: May 28, 2024 09:02 AM Reporting Lab: [facility] [address] Performing Lab: [facility] [address] WBC 16.1 H 4.0-11.0 RBC 5.02 4.60-6.20 [...] May 28, 2024 09:02 AM Reporting Lab: [facility] [address] Performing Lab: [facility] [address] CREATININE 0.9 mg/dL 0.7-1.2 UREA NITROGEN 15 [...] Source Jul 05, 2024 08:50 PM 7 [facility] Jul 05, 2024 05:00 PM 6 [facility] Jul 05, 2024 04:58 PM 7 [facility] Jul 05, 2024 04:51 PM 98.5 97 147/88 16 95 7 [facility] Jul 05, 2024 03:20 PM 5 [facility] Social History: Smoking Status (Most current) and Tobacco Use (All prior to encounter date) This section includes the most current, and the historical, smoking and tobacco- related health factors from the [facility] where the Encounter took place. Current Smoking Status This section includes the most current smoking, or tobacco-related health factor, from the [place] facility where the Encounter took place. Date/Time Current Smoking Status Comment Facil ity May 15, 2024 08:30 AM VA-TOBACCO QUIT 15 YRS OR MORE [facility] Tobacco Use History This section includes a history of the smoking, or tobacco-related health factors, that were collected on or before the date of the Encounter. The data comes from the [facility] where the Encounter took place. [...] Mar 23, 2016 CLINICAL WARNING [facility] Radiology Reports: +/- 30 days [...] VIEWS PA A ND LAT: FLACA WEAVER [id number] -1950 M Exm Date: JUL 08, 2024@10:09 Req Phys: KATELYNN PERSON Pat Loc: 2KG/07-08-2024@11:49 Img Loc: MAIN X-RAY Service: [place] [address] (Case 24 COMPLETE) CHEST 2 VIEWS PA AND LAT (RAD Detailed) CPT:96051 Reason for Study: Uptrending WBC, POD 5 Clinical History: [place] IS NOT under investigation for COVID-19 or is COVID-19 negative POD 5, work up for uptrending wbc Responsible provider name and phone number to notify for critical findings if other than user placing the order and pager listed below: User placing orders pager: Katelynn Person LAST CREATININE 0.9 (07/07/24) Report Status: Verified Date Reported: JUL 08, 2024 Date Verified: JUL 08, 2024 Driver License Technician E-Sig: Report: CHEST 2 VIEWS PA AND LAT HISTORY: Uptrending WBC, POD 5 COMPARISON: CT chest 11/12/2022 TECHNIQUE: Frontal and lateral views of the chest, submitted to the [place] National Teleradiology Program (NTP) for interpretation. FINDINGS: Lungs: Clear. No focal consolidation. No pulmonary edema. Pleura: No pleural effusion or pneumothorax. Mediastinum: Normal size and contour. Bones: Unremarkable. Impression: No acute cardiopulmonary disease. READING PHYSICIAN: Sarbjit Vaughn M.D. -[phone] 07/08/2024 12:46 EST [facility] National Teleradiology Program [phone] (For Medical Practitioner Use Only) Attention Patients / Veterans: If you have questions or concerns about these test results, please contact your ordering provider or primary care team. Primary Interpreting Staff: RADIOLOGY,OUTSIDE SERVICE, Staff Physician / RADIOLOGY,OUTSIDE SERVICE [facility] Jul 08, 2024 10:[address] (AP) ABDOMEN/PE LVIS W CONTRAST: FLACA WEAVER [id number] -1950 M Exm Date: JUL 08, 2024@10:00 Req Phys: KATELYNN PERSON Pat Loc: [facility]/07-08-2024@12:07 Img Loc: CT IMAGING Service: [place] [address] (Case 22 COMPLETE) CT (AP) ABDOMEN/PELVIS W CONTRAST(CT Detailed) CPT:92191 Contrast Media : Non-ionic Iodinated Reason for [...] PLASMA .CREAT EGFR(CKD-E >90 Ref: >=60 Allergies: ([facility] only) TERAZOSIN (Mar 13, 2015) Report Status: Verified Date Reported: JUL 08, 2024 Date Verified: JUL 08, 2024 Driver License Technician E-Sig: Report: CT ([place]) ABDOMEN/PELVIS W CONTRAST HISTORY: POD 5, Uptrending WBC - Concern for Abscess/other infection COMPARISON: June 21, 2024 TECHNIQUE: CT abdomen and pelvis was performed after intravenous contrast. Axial, sagittal and coronal reformatted images. The study was performed at the local [place] facility and images were sent to the [place] National Teleradiology Program (NTP) for interpretation. Number [...] as noted above READING PHYSICIAN: Celestino Blanc -[phone] 07/08/2024 13:04 EST [facility] National [employer] Program [phone] (For Medical Practitioner Use Only) Attention Patients / Veterans: If you have questions or concerns about these test results, please contact your ordering provider or primary care team. Primary Interpreting Staff: RADIOLOGY,OUTSIDE SERVICE, Staff Physician / RADIOLOGY,OUTSIDE SERVICE [facility] Jun 22, 2024 11:49 AM ABSCESS DRAIN PLAC EMENT PERITONEAL (P): FLACA WEAVER [id number] -1950 M Exm Date: JUN 22, 2024@11:49 Req Phys: ANGELA HOLDEN Loc: [facility]/06-22-2024@17:14 Img Loc: INTERVENTIONAL RADIOLOGY Service: [place] [address] (Case [id number] COMPLETE) IR PERITONEAL/RETROPERITONEAL PER(ANI Detailed) CPT:72290 Reason for Study: diverticulitis with abscess (Case 3570 COMPLETE) IR MOD SEDATION 10-22 MIN (ANI Detailed) CPT:05987 Clinical History: [place] IS NOT under investigation for COVID-19 or is COVID-19 negative 73 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 please place abscess drain. Contact number for responsible provider who can be reached for any questions or notifications of critical findings: [phone] n/a LAST CREATININE 0.9 (06/21/24) Report Status: Verified Date Reported: JUN 22, 2024 Date Verified: JUN 22, 2024 Driver License Technician E-Sig:/ES/LISA PENDLETON MD Report: PROCEDURES: Placement of [...] obtained. A pre-procedural Time-Out was performed per [facility] policy. The patient was placed in the supine position on the CT table. Preprocedural scan performed. The suprapubic region/lower abdominal wall was sterilely prepped and draped in the usual fashion.1% lidocaine without epinephrine was used for local anesthesia. Using real-time CT fluoroscopy, a 5 Finnish Green & Growesis catheter was advanced into the collection in the left pelvis. A wire was coiled in the collection. The tract into the collection was dilated to accommodate the 12 Finnish locking pigtail drainage catheter. There was return [...] Primary Interpreting Staff: LISA PENDLETON MD, RADIOLOGIST (Driver License Technician) /JRT LISA PENDLETON [facility] Jun 22, 2024 11:[address] NEEDLE PLACEMEN T (P): FLACA WEAVER [id number] -1950 M Exm Date: JUN 22, 2024@11:48 Req Phys: ANGELA HOLDEN [facility] Loc: [facility]/06-22-2024@17:14 Img Loc: CT IMAGING Service: [place] [address] (Case [id number] COMPLETE) CT SCAN FOR NEEDLE PLACEMENT (CT Detailed) CPT:28068 Reason for Study: l pelvic abscess drain Clinical History: Report Status: Verified Date Reported: JUN 22, 2024 Date Verified: JUN 22, 2024 Driver License Technician E-Sig:/ES/LISA PENDLETON MD Report: PROCEDURES: Placement of [...] obtained. A pre-procedural Time-Out was performed per [facility] policy. The patient was placed in the supine position on the CT table. Preprocedural scan performed. The suprapubic region/lower abdominal wall was sterilely prepped and draped in the usual fashion.1% lidocaine without epinephrine was used for local anesthesia. Using real-time CT fluoroscopy, a 5 Finnish Green & Growesis catheter was advanced into the collection in the left pelvis. A wire was coiled in the collection. The tract into the collection was dilated to accommodate the 12 Finnish locking pigtail drainage catheter. There was return [...] Primary Interpreting Staff: LISA PENDLETON MD, RADIOLOGIST (Driver License Technician) /JRT LISA PENDLETON [facility] Jun 21, 2024 06:[address] (AP) ABDOMEN/PE LVIS (P): FLACA WEAVER [id number] -1950 M Ex Date: JUN 21, 2024@18:09 Req Phys: DELIA MARTINEZ Loc: [facility] EM[facility]PT WALK-IN (Re Img Loc: CT IMAGING Service: [place] [address] (Case [id number] COMPLETE) CT (AP) ABDOMEN/PELVIS W CONTRAST(CT Detailed) CPT:10522 Contrast Media : Non-ionic Iodinated Reason for [...] PLASMA .CREAT EGFR(CKD-E >90 Ref: >=60 Allergies: ([facility] only) TERAZOSIN (Mar 13, 2015) Defer to [...] 21, 2024 Date Verified: JUN 21, 2024 Driver License Technician E-Sig:/ALEXI/CARLOS A CUNNINGHAM DO Report: EXAMINATION: CT [...] Interpreting Staff: CARLOS A CUNNINGHAM DO, RADIOLOGIST (Driver License Technician) /CARLOS A ROWELL [facility] Pathology [...] $APHDR Reporting Lab: [facility] [CLIA# [id number]] [email or web address] [address] - - - - - - - [...] - PATHOLOGY REPORT Accession No. [id number] - - - - - - - [...] - PATHOLOGY REPORT Accession No. [id number] - - - - - - - [...] Second circumferential surgical margin, en face; E-F: Lie Detector Operator diverticula; G: Lie Detector Operator section of mesentery; H: Random district sales representative section of additional adipose tissue [...] One colonic tissue ring, bisected transversely. [facility]: Microscopic examination performed. DIAGNOSIS: 1. Colon, sigmoid, sigmoidectomy-- - Diverticulosis with perforation and focal abscess formation 2. Colon, anastomotic rings, excision-- - Viable colonic mucosa without diagnostic abnormality /es/ EDUARDO PALOMARES MD STAFF PATHOLOGIST Signed Jul 06, 2024@10:40 Performing Laboratory: Surgical Pathology Report Performed By: [facility] [CLIA# [id number]] [place] [address] $FTR - - - - - - [...] - - FLACA WEAVER STANDARD FORM 515 ID:[id number] SEX:M :1950 AGE: 73 LOC:[id number] ADM:Jun DX:DIVERTICULITIS PCP: Jatinder Cabrera /alexi/ EDUARDO PALOMARES MD STAFF PATHOLOGIST Signed: 07/06/2024 10:40 EDUARDO PALOMARES [facility] Jun 22, 2024 01:15 PM LR MICROBIOLOGY RE PORT: Reporting Lab: [facility] [CLIA# [id number]] [place] [address] Accession [UID]: [id number] [[id number]] Received: Jun 22, 2024@13:38 Collection sample: FLUID Collection date: Jun 22, 2024 13:15 Provider: ANGELA HOLDEN Comment on specimen: LLQ ABSCESS, RECEIVED IN ANAEROBIC TRANSPORT VIAL Test(s) ordered: GRAM STAIN.................... completed: Jun 22, 2024 15:03 CULTURE & SUSCEPTIBILITY...... completed: Jun 25, 2024 * BACTERIOLOGY FINAL REPORT => Jun 25, 2024 10:56 TECH CODE: [id number] GRAM STAIN: DIRECT SMEAR of specimen before [...] Report Performed By: [facility] [CLIA# [id number]] [place] [id number] [facility] Jun 22, 2024 01:15 PM LR MICROBIOLOGY RE PORT: Reporting Lab: [facility] [CLIA# [id number]] [place] [place] [id number] Accession [UID]: [id number] [[id number]] Received: Jun 22, 2024@13:38 Collection sample: FLUID Collection date: Jun 22, 2024 13:15 Provider: ANGELA HOLDEN Comment on specimen: LLQ ABSCESS, RECEIVED IN ANAEROBIC TRANSPORT VIAL Test(s) ordered: ANAEROBIC CULTURE............. completed: Jun 28, 2024 * BACTERIOLOGY FINAL REPORT => Jun 28, 2024 10:08 [facility] CODE: [id number] CULTURE RESULTS: HEAVY GROWTH MIXED ANAEROBES Comment: [...] Bacteriology Report Performed By: [facility] [IA# [id number]] [place] [address] [facility] Jun 21, 2024 06:12 PM LR MICROBIOLOGY RE PORT: Reporting Lab: [facility] [IA# [id number]] [place] [address] Accession [UID]: [id number] [[id number]] Received: Jun 21, 2024@18:12 Collection sample: BLOOD [...] Bacteriology Report Performed By: [facility] [IA# [id number]] [place] [address] [facility] Jun 21, 2024 06:11 PM LR MICROBIOLOGY RE PORT: Reporting Lab: [facility] [IA# [id number]] [place] [address] Accession [UID]: [id number] [[id number]] Received: Jun 21, 2024@18:11 Collection sample: BLOOD [...] Report Performed By: [facility] [CLIA# [id number]] [place] [address] [facility] Jun 08, 2024 11:00 AM LR MICROBIOLOGY RE PORT: Reporting Lab: [facility] [CLIA# [id number]] [place] [address] Accession [UID]: [id number] [[id number]] Received: Jun 08, 2024@11:00 Collection sample: URINE Collection date: Jun 08, 2024 11:00 Provider: MARYBETH POWELL Comment on specimen: urine Test(s) ordered: CULTURE & SUSCEPTIBILITY...... completed: Jun 09, 2024 * BACTERIOLOGY FINAL REPORT => Jun 09, 2024 19:12 TECH CODE: [id number] CULTURE RESULTS: ESCHERICHIA COLI - Quantity: >100,000 [...] Report Performed By: [facility] [CLIA# [id number]] [address] [place] [address] [facility] Encounter Notes: All associated encounter notes This section contains the clinical notes associated to the Encounter. Date/Time Encounter Note(s) Provider Source Jul 05, 2024 12:43 PM PRIMARY CARE NOTE: LOCAL TITLE: MEDICINE INPT CO-MANAGEMENT NOTE STANDARD TITLE: PRIMARY CARE NOTE DATE OF NOTE: JUL 05, 2024@12:43 ENTRY DATE: JUL 05, 2024@12:43:53 AUTHOR: JEVON ZAZUETA EXP COSIGNER: URGENCY: STATUS: COMPLETED DAILY MEDICAL PROGRESS NOTE Nursing Notes reviewed. SUBJECTIVE: Met with FLACA WEAVER who is a 73 y/o MALE. No acute events overnight. We do note Mr. Weaver's HR's drop to mid 40-50's at times, not new, he denies light headedness. We do note his SBP was up to 170-180's, he reports he gets mild SOB at times when his SBP's are high. Denies now. He reports his new ostomy burst open this morning, was a big mess, took an 1hr to clean up, PT/OT came by, he declined due to this. He otherwise does endorse some abdominal/surgical pain, does not rate, reports the SUPPLY CHAIN TECH pain med's are helping. He does admit to some mild intermittent nausea, reports some stool and gas in his new ostomy. He has no other complaints. +flatus, +BM, some nausea, voiding. OBJECTIVE VITALS: Blood pressure: Measurement DT BP 07/05/2024 10:16 146/67 07/05/2024 01:29 153/73 07/04/2024 16:27 159/73 Pulse: Measurement DT PULSE 07/05/2024 10:16 60 07/05/2024 01:29 48 07/04/2024 16:27 55 RR: 20 Temp: 98.7 F [37.1 C] SaO2: 96% on RA REVIEW OF SYSTEMS A 10 point system review was done and found to be negative and non- contributory, unless noted in the HPI. PHYSICAL EXAM: GENERAL: Elderly male resting in bed, appears comfortable, NAD. ENT: Oral membranes are moist with no exudate. CV: S1/S2, RRR, no murmur, rub or gallop. RESPIRATORY: Regular/relaxed work of breathing, no cough. ABDOMEN: Abdomen is protuberant with hypo-active bowel sounds, soft, tenderness with palpation. No guarding, rigidity, or rebound tenderness. EXTREMITIES: No bilateral lower extremity edema. SKIN: No rash seen on visible skin. MOOD: Alert, calm and pleasant. NEURO: AOx3, CN II-XII grossly intact. WOUND: Abdominal mid line incision covered with occlusive dressing, C/D/I. RLQ ostomy present, stoma not seen, new bag in place, no stool/gas. Left JUAN present with Sero/sang drainage. PERTINENT MEDICATIONS: Active Inpatient Medications (including Supplies): Active Inpatient Medications Status 1) ACETAMINOPHEN (INPT) TAB 1000MG PO Q8H ACTIVE 2) ATORVASTATIN TAB 20MG PO QHS ACTIVE 3) EMPAGLIFLOZIN TAB,ORAL 12.5MG PO QDAY ACTIVE 4) ENOXAPARIN INJ 40MG/0.4ML SQ QNOON Prophylactic ACTIVE protocol *give only in abdomen 5) FUROSEMIDE TAB 20MG PO QDAY ACTIVE 6) HYDROCHLOROTHIAZIDE/LISINOP RIL TAB 1 TABLET PO QDAY ACTIVE 7) HYDROMORPHONE INJ,SOLN 0.2-0.4 MG IV Q6H PRN Give ACTIVE this medication when pain is not controlled by oral medications. Give 0.2 mg for pain scale of 4-7. Give 0.4 mg for pain scale of 8-10. 8) ISOSORBIDE MONONITRATE TAB,SA 30MG PO QDAY ACTIVE 9) METHOCARBAMOL TAB 500MG PO Q4H ACTIVE 10) NALOXONE INJ,SOLN 0.4MG/1ML IV PRN For opioid ACTIVE overdose (difficult to arouse and RR<8). Call provider or CURVE SAW OPERATOR. May repeat every 2-3 min up to 3 total doses. Administer INTRAMUSCULARLY if no IV access. 11) NITROGLYCERIN TAB,SUBLINGUAL 0.4MG SL QDAY PRN for ACTIVE chest pain 12) ONDANSETRON TAB 4MG PO Q6H PRN FOR NAUSEA ACTIVE 13) OXYCODONE TAB 5MG PO Q4H PRN ACTIVE 14) PIPERACILLIN/TAZOBACTAM 3.375GM 50ML INJ in ACTIVE PIPERACIL/TAZOB 3.375GM PREMIX 50 ML INFUSE OVER 30 MINUTES For 4 days (07/03-07/07) IVPB Q6H 15) POTASSIUM PHOSPHATE/SODIUM PHOSPHATE TAB 1 TABLET PO ACTIVE QID FOR 4 DOSES ONLY (INCLUDING NOW DOSE) (1 tab KPhos Neutral = 8 mmol PHOS, 13 mEq Na, 1.1 mEq K) 16) REFRIGERATED NARCOTIC INJ SEE IV ORDER IV HYDRO EXCAVATION OPERATOR ACTIVE THIS ORDER IS FOR NURSING PYXIS ACCESS AND PHARMACY INFORMATION ONLY DOCUMENT SUPPLY CHAIN TECH/DRIP ADMINISTRATION UNDER ORDER ON IV TAB 17) SALINE FLUSH INJ 10ML IV Q8H AFTER EACH USE, MINIMUM ACTIVE OF EVERY SHIFT. 18) SPIRONOLACTONE TAB 12.5MG PO QDAY ACTIVE LABS: I have reviewed the past 48 hours of labs in the [facility] system. IMAGING: I have reviewed the past 48 hours of images in the [facility] system. ASSESSMENT & PLAN: A 73 year old male with CAD s/p PCI with EVIE to proximal RCA & mid RCA 03/23/2016, second degree Mobitz I AV block (Wenckebach), HFpEF, HTN, HLD, glucose intolerance , JUANJOSE not on CPAP, AAA, bilateral GAIL aneurysms, tobacco use disorder in remission, cannabis use, small hiatal hernia, kidney infarct in 2019, impulsive control disorder and prior disruptive behavior complaints. Also chronic diverticulitis with colovesicular fistula admitted for sigmoid colectomy, splenic flexure mobilization, and diverting loop ileostomy. # Chronic diverticulitis c/b colovesicular fistula s/p lap converted to open sigmoid colectomy, splenic flexure mobilization, and diverting loop ileostomy, 5 Nov # Acute post operative pain # Worsening leukocytosis, in setting of surgery and Dexamethasone and known fistula WBC is 18.3 today, afebrile, non-toxic. Likely multifactorial with fistula/infection, reactive due to surgery, and did get Dexamethasone during surgery. -Per Colorectal: Wound care, pain control, antibiotics, DVT prophylaxis, PT/OT/activity, diet resumed. -Agree with ongoing Zosyn, CRS noted they plan for 4 days post op, currently last day planned 11 in the PM. -We note ongoing SUPPLY CHAIN TECH Hydromorphone. # Intermittent bradycardia, appears chronic # Known 2nd degree AV block type I (Paolakeconi) At times HR's down to mid 40's, asymptomatic. Had had that with prior admissions. Not on any rate control. -Continue to clinically monitor. -Avoid AV blocking meds. -Ok to DC telemetry today. Chronic medical problems: # CAD # HLD Not on any ASA at home, not on beta rina due to AVB and bradycardia. -Continue home Atorvastatin. -Continue home Isosorbide and PRN Nitroglycerine. --Will attempt to determine why Pt is not on ASA. # HFpEF, LVEF 60-65% # HTN Appears euvolemic. -Continue home Empagliflozin, Furosemide, Spironolactone. --On HCTZ/Lisinopril 12.5/10 mg currently. (At home he takes 1/2 tab but Pharm D reports we do not have the 1/2 tab's in hospital. Due to higher SBP's we are continuing the full tab, if SBP's become low, will need to order HCTZ 12.5 and Lisinopril 5 mg's separately (as we do not carry 6.25 mg HCTZ.)). # Glucose intolerance A1c 4.9 this Oct. Did get 12 mg's of dexamethasone during surgery. No hyperglycemia noted so far. -No need for bedside glucose monitoring. -Will monitor AM glucoses with lab's. --Is on Empagliflozin for CHF. # JUANJOSE - Cont. supplemental nocturnal O2 @ 2 L/min NC to keep SaO2 >90% if needed. # h/o Renal infarction '19 Creatine continues to be at baseline. -Continue to clinically monitor. # MEDICINE CONSIDERATIONS -Medicine continues to follow. Prophylaxis: Lovenox q daily. Diet: Full liquid. IVF: TKO with SUPPLY CHAIN TECH pump. /alexi/ Jevon Zazueta CNP, [employer]ERING STAFF MEMBER Nurse Practitioner, Specialty Care-Surgery Signed: 07/05/2024 13:17 JEVON ZAZUETA [facility]
--- OUTSIDE RECORDS SUMMARY | 2024-07-16 07:16 | XMS_ITS ---
Author Name [facility] [place] [facility] [facility] [place] Address [address] [place] [address] Care Team Providers Care Commercial Account Executive Name Role Phone JATINDER CABRERA Primary Care [...] PART A Sep 29, 2016 PART A [id number] [phone] JUDY WEAVER PATIENT Selected Encounter This section includes the information on record at [place] for the Encounter. Date/Time Encounter Type Encounter Description Reason Pro vider Source Jul 04, 2024 01:00 AM Inpatient Visit ADMIN PAT ACTIVTIES (meevlCT) SYSTEM,CIS-ARK IHE Encounter Template Text not used by [place] Plan of Treatment: Future Appointments (+ 6 months) and Future Tests (+/- 45 days) The Plan of Treatment section includes future care activities for the patient from all [place] treatmentfacilities. This section includes future appointments and [...] 13, 2024 08:15 AM [facility] Active, Pending, and Scheduled Orders This section includes a listing of several types of active, pending, and scheduled orders, including clinic medications orders, diagnostic test orders, procedure orders and consult orders; where the start date of the order is 45 days before the date of the Encounter or 45 days after the date of theEncounter. The data comes from all [facility]. Test Date/Time Test Type Test Details Facility Name May 28, 2024 12:00 AM Laboratory - Blood Bank Order TYPE & SCREEN - LAB BLOOD SP [facility] Jun 08, 2024 09:57 AM Laboratory - Chemi stry Order URINALYSIS URINE WC ONCE [facility] Jun 12, 2024 12:00 AM Laboratory - Chemi stry Order BNP PLASMA SP [facility]CE [facility] Jun 21, 2024 05:45 PM Laboratory - Blood Bank Order TYPE & SCREEN - LAB BLOOD WC [facility] Jul 03, 2024 12:00 AM Laboratory - Blood Bank Order TYPE & SCREEN - LAB BLOOD WC [facility] Jul 16, 2024 12:00 AM Laboratory - Chemi stry Order CBC BLOOD SP [facility]CE [facility] Jul 17, 2024 12:00 AM Laboratory - Chemi stry Order BASIC METABOLIC PANEL+MG PLASMA SP [facility]CE [facility] Lab Results: +/- 30 days of the encounter This section includes the Chemistry and Hematology Lab Results on record with [place] for the patient. Radiology Reports and Pathology Reports are provided separately, in subsequent sections. Lab Results This section contains the Chemistry/Hematology Results that were resulted 30 days before or 30 daysafter the date of the Encounter. Date/Time Source Result Type Result - Unit Interpretation Reference Range Comment Jul 10, 2024 07:[address] [facility] PHOSPHORUS Specimen Type: PLASMA No comment entered. Ordering Provider: JUANCARLOS ECHOLS S Report Released Date/Time: Jul 09, 2024 12:23 PM Reporting Lab: [facility] [address] Performing Lab: [facility] [address] PHOSPHORUS 3.0 mg/dL 2.3-4.3 Jul 10, 2024 07:[address] [facility] BASIC METABOLIC PANEL+MG Specimen Type: PLASMA No comment entered. Ordering Provider: JUANCARLOS ECHOLS S Report Released Date/Time: Jul 09, 2024 12:23 PM Reporting Lab: [facility] [address] Performing Lab: [facility] [address] CREATININE 0.7 mg/dL 0.7-1.2 UREA NITROGEN 27 mg/dL H 8-26 GLUCOSE 104 mg/dL H 70-100 SODIUM 133 mmol/L L 136-145 POTASSIUM 4.3 mmol/L 3.5-5.1 CHLORIDE 102 mmol/L 98-107 CO2 19 mmol/L L 22-29 CALCIUM 10.1 mg/dL 8.4-10.2 MAGNESIUM 1.9 mg/dL 1.6-2.6 ANION GAP 12 mmol/L 5-15 .CREAT EGFR(CKD-EPI) >90 >60 Jul 10, 2024 07:[address] [facility] CBC Specimen Type: BLOOD No comment entered. Ordering Provider: JUANCARLOS ECHOLS S Report Released Date/Time: Jul 09, 2024 12:23 PM Reporting Lab: [facility] [address] Performing Lab: [facility] [address] WBC 18.8 H 4.0-11.0 RBC 5.08 4.60-6.20 HGB 15.9 g/dL 13.5-17.9 HCT 46.8 41.0-54.0 MCV 92.1 fL 80.0-100.0 MCH 31.3 pg 27.0-33.0 MCHC 34.0 g/dL 32.0-37.5 PLT 479 H 150-400 MPV 10.2 fL 9.1-13.0 RDW 13.7 11.5-14.5 Jul 09, 2024 07:[address] [facility] CBC Specimen Type: BLOOD No comment entered. Ordering Provider: QUYNH WEISS Report Released Date/Time: Jul 08, 2024 06:18 PM Reporting Lab: [facility] [address] Performing Lab: [facility] [address] WBC 15.3 H 4.0-11.0 RBC 4.91 4.60-6.20 HGB 15.1 g/dL 13.5-17.9 HCT 45.7 41.0-54.0 MCV 93.1 fL 80.0-100.0 MCH 30.8 pg 27.0-33.0 MCHC 33.0 g/dL 32.0-37.5 PLT 443 H 150-400 MPV 10.0 fL 9.1-13.0 RDW 13.5 11.5-14.5 Jul 08, 2024 10:[address] [facility] URINALYSIS Specimen Type: URINE No comment entered. Ordering Provider: KATELYNN PERSON Report Released Date/Time: Jul 08, 2024 08:41 AM Reporting Lab: [facility] [address] Performing Lab: [facility] [address] URINE COLOR YELLOW SPECIFIC GRAVITY >1.050 H [...] NEGATIVE NEGATIVE Jul 08, 2024 09:[address] [facility] CBC Specimen Type: BLOOD Comment: Specimen received in Lab at: 0952 Ordering Provider: JUANCARLOS ECHOLS Report Released Date/Time: Jul 07, 2024 04:49 PM Reporting Lab: [facility] [address] Performing Lab: [facility] [address] WBC 17.5 H 4.0-11.0 RBC 4.88 4.60-6.20 HGB 14.9 g/dL 13.5-17.9 HCT 45.7 41.0-54.0 MCV 93.6 fL 80.0-100.0 MCH 30.5 pg 27.0-33.0 MCHC 32.6 g/dL 32.0-37.5 PLT 472 H 150-400 MPV 10.2 fL 9.1-13.0 RDW 13.7 11.5-14.5 Jul 08, 2024 09:[address] [facility] PHOSPHORUS Specimen Type: PLASMA Comment: Specimen received in Lab at: 0952 Ordering Provider: JUANCARLOS ECHOLS S Report Released Date/Time: Jul 07, 2024 04:49 PM Reporting Lab: [facility] [address] Performing Lab: [facility] [address] PHOSPHORUS 2.6 mg/dL 2.3-4.3 Jul 08, 2024 09:[address] [facility] BASIC METABOLIC PANEL+MG Specimen Type: PLASMA Comment: Specimen received in Lab at: 0952 Ordering Provider: JUANCARLOS ECHOLS S Report Released Date/Time: Jul 07, 2024 04:49 PM Reporting Lab: [facility] [address] Performing Lab: [facility] [address] CREATININE 0.9 mg/dL 0.7-1.2 UREA NITROGEN 26 mg/dL 8-26 GLUCOSE 128 mg/dL H 70-100 SODIUM 134 mmol/L L 136-145 POTASSIUM 3.4 mmol/L L 3.5-5.1 CHLORIDE 100 mmol/L 98-107 CO2 24 mmol/L 22-29 CALCIUM 9.8 mg/dL 8.4-10.2 MAGNESIUM 1.8 mg/dL 1.6-2.6 ANION GAP 10 mmol/L 5-15 .CREAT EGFR(CKD-EPI) >90 >60 Jul 07, 2024 02:[address] [facility] C DIFF PANEL Specimen Type: FECES No comment entered. Ordering Provider: JEVON ZAZUETA Report Released Date/Time: Jul 07, 2024 12:26 PM Reporting Lab: [facility] [address] Performing Lab: [facility] [address] C DIFF TOX B GENE PCR NEGATIVE Negative Jul 07, 2024 07:[address] [facility] PHOSPHORUS Specimen Type: PLASMA No comment entered. Ordering Provider: JEVON ZAZUETA Report Released Date/Time: Jul 06, 2024 03:44 PM Reporting Lab: [facility] [address] Performing Lab: [facility] [address] PHOSPHORUS 3.1 mg/dL 2.3-4.3 Jul 07, 2024 07:[address] [facility] BASIC METABOLIC PANEL+MG Specimen Type: PLASMA No comment entered. Ordering Provider: JEVON ZAZUETA Report Released Date/Time: Jul 06, 2024 03:44 PM Reporting Lab: [facility] [address] Performing Lab: [facility] [address] CREATININE 0.9 mg/dL 0.7-1.2 UREA NITROGEN 20 mg/dL 8-26 GLUCOSE 157 mg/dL H 70-100 SODIUM 136 mmol/L 136-145 POTASSIUM 3.7 mmol/L 3.5-5.1 CHLORIDE 102 mmol/L 98-107 CO2 21 mmol/L L 22-29 CALCIUM 9.8 mg/dL 8.4-10.2 MAGNESIUM 1.9 mg/dL 1.6-2.6 ANION GAP 13 mmol/L 5-15 .CREAT EGFR(CKD-EPI) >90 >60 Jul 07, 2024 07:[address] [facility] CBC Specimen Type: BLOOD No comment entered. Ordering Provider: JEVON ZAZUETA Report Released Date/Time: Jul 06, 2024 03:44 PM Reporting Lab: [facility] [address] Performing Lab: [facility] [address] WBC 21.2 H 4.0-11.0 RBC 5.09 4.60-6.20 HGB 15.9 g/dL 13.5-17.9 HCT 48.3 41.0-54.0 MCV 94.9 fL 80.0-100.0 MCH 31.2 pg 27.0-33.0 MCHC 32.9 g/dL 32.0-37.5 PLT 500 H 150-400 MPV 10.3 fL 9.1-13.0 RDW 13.6 11.5-14.5 Jul 06, 2024 07:[address] [facility] CBC Specimen Type: BLOOD No comment entered. Ordering Provider: JEVON ZAZUETA Report Released Date/Time: Jul 05, 2024 01:22 PM Reporting Lab: [facility] [address] Performing Lab: [facility] [address] WBC 18.0 H 4.0-11.0 RBC 4.83 4.60-6.20 HGB 14.6 g/dL 13.5-17.9 HCT 45.5 41.0-54.0 MCV 94.2 fL 80.0-100.0 MCH 30.2 pg 27.0-33.0 MCHC 32.1 g/dL 32.0-37.5 PLT 368 150-400 MPV 10.4 fL 9.1-13.0 RDW 13.6 11.5-14.5 Jul 06, 2024 07:[address] [facility] PHOSPHORUS Specimen Type: PLASMA No comment entered. Ordering Provider: JEVON ZAZUETA Report Released Date/Time: Jul 05, 2024 01:22 PM Reporting Lab: [facility] [address] Performing Lab: [facility] [address] PHOSPHORUS 3.6 mg/dL 2.3-4.3 Jul 06, 2024 07:[address] [facility] BASIC METABOLIC PANEL+MG Specimen Type: PLASMA No comment entered. Ordering Provider: JEVON ZAZUETA Report Released Date/Time: Jul 05, 2024 01:22 PM Reporting Lab: [facility] [address] Performing Lab: [facility] [address] CREATININE 0.7 mg/dL 0.7-1.2 UREA NITROGEN 12 mg/dL 8-26 GLUCOSE 108 mg/dL H 70-100 SODIUM 138 mmol/L 136-145 POTASSIUM 3.4 mmol/L L 3.5-5.1 CHLORIDE 104 mmol/L 98-107 CO2 20 mmol/L L 22-29 CALCIUM 9.3 mg/dL 8.4-10.2 MAGNESIUM 1.9 mg/dL 1.6-2.6 ANION GAP 14 mmol/L 5-15 .CREAT EGFR(CKD-EPI) >90 >60 Jul 05, 2024 07:[address] [facility] MAGNESIUM Specimen Type: PLASMA No comment entered. Ordering Provider: JUANCARLOS ECHOLS S Report Released Date/Time: Jul 04, 2024 09:39 AM Reporting Lab: [facility] [address] Performing Lab: [facility] [address] MAGNESIUM 2.0 mg/dL 1.6-2.6 Jul 05, 2024 07:[address] [facility] PHOSPHORUS Specimen Type: PLASMA No comment entered. Ordering Provider: JUANCARLOS ECHOLS S Report Released Date/Time: Jul 04, 2024 09:39 AM Reporting Lab: [facility] [address] Performing Lab: [facility] [address] PHOSPHORUS 2.0 mg/dL L 2.3-4.3 Jul 05, 2024 07:[address] [facility] BASIC METABOLIC PANEL+MG Specimen Type: PLASMA No comment entered. Ordering Provider: JUANCARLOS ECHOLS S Report Released Date/Time: Jul 04, 2024 09:39 AM Reporting Lab: [facility] [address] Performing Lab: [facility] [address] CREATININE 0.7 mg/dL 0.7-1.2 UREA NITROGEN 12 mg/dL 8-26 GLUCOSE 84 mg/dL 70-100 SODIUM 135 mmol/L L 136-145 POTASSIUM 3.8 mmol/L 3.5-5.1 CHLORIDE 104 mmol/L 98-107 CO2 24 mmol/L 22-29 CALCIUM 9.3 mg/dL 8.4-10.2 MAGNESIUM 2.0 mg/dL 1.6-2.6 ANION GAP 7 mmol/L 5-15 .CREAT EGFR(CKD-EPI) >90 >60 Jul 05, 2024 07:[address] [facility] CBC Specimen Type: BLOOD No comment entered. Ordering Provider: JUANCARLOS ECHOLS S Report Released Date/Time: Jul 04, 2024 09:39 AM Reporting Lab: [facility] [address] Performing Lab: [facility] [address] WBC 18.3 H 4.0-11.0 RBC 4.49 L 4.60-6.20 HGB 14.1 g/dL 13.5-17.9 HCT 43.4 41.0-54.0 MCV 96.7 fL 80.0-100.0 MCH 31.4 pg 27.0-33.0 MCHC 32.5 g/dL 32.0-37.5 PLT 317 150-400 MPV 10.0 fL 9.1-13.0 RDW 13.9 11.5-14.5 Jul 04, 2024 07:[address] [facility] BASIC METABOLIC PANEL+MG Specimen Type: PLASMA No comment entered. Ordering Provider: GABINO CAMERON Report Released Date/Time: Jul 03, 2024 06:31 PM Reporting Lab: [facility] [address] Performing Lab: [facility] [address] CREATININE 0.7 mg/dL 0.7-1.2 UREA NITROGEN 16 mg/dL 8-26 GLUCOSE 129 mg/dL H 70-100 SODIUM 137 mmol/L 136-145 POTASSIUM 3.7 mmol/L 3.5-5.1 CHLORIDE 107 mmol/L 98-107 CO2 22 mmol/L 22-29 CALCIUM 9.0 mg/dL 8.4-10.2 MAGNESIUM 1.9 mg/dL 1.6-2.6 ANION GAP 8 mmol/L 5-15 .CREAT EGFR(CKD-EPI) >90 >60 Jul 04, 2024 07:[address] [facility] PHOSPHORUS Specimen Type: PLASMA No comment entered. Ordering Provider: GABINO CAMERON Report Released Date/Time: Jul 03, 2024 06:31 PM Reporting Lab: [facility] [address] Performing Lab: [facility] [address] PHOSPHORUS 2.8 mg/dL 2.3-4.3 Jul 04, 2024 07:[address] [facility] CBC Specimen Type: BLOOD No comment entered. Ordering Provider: GABINO CAMERON Report Released Date/Time: Jul 03, 2024 06:31 PM Reporting Lab: [facility] [address] Performing Lab: [facility] [address] WBC 20.6 H 4.0-11.0 RBC 4.63 4.60-6.20 HGB 14.2 g/dL 13.5-17.9 HCT 43.4 41.0-54.0 MCV 93.7 fL 80.0-100.0 MCH 30.7 pg 27.0-33.0 MCHC 32.7 g/dL 32.0-37.5 PLT 329 150-400 MPV 10.4 fL 9.1-13.0 RDW 13.8 11.5-14.5 Jul 04, 2024 07:[address] [facility] CBC & DIFF Specimen Type: BLOOD Comment: Manual Differential Performed Ordering Provider: GABINO CAMERON Report Released Date/Time: Jul 03, 2024 06:31 PM Reporting Lab: [facility] [address] Performing Lab: [facility] [address] WBC 20.6 H 4.0-11.0 RBC 4.63 4.60-6.20 [...] MORPHOLOGY PRESENT Jul 04, 2024 07:[address] [facility] BNP Specimen Type: PLASMA No comment entered. Ordering Provider: GABINO CAMERON Report Released Date/Time: Jul 03, 2024 06:31 PM Reporting Lab: [facility] [address] Performing Lab: [facility] [address] BNP 292 pg/mL H <99 Jul 03, 2024 10:[address] [facility] FINGERSTICK GLUCOSE Specimen Type: BLOOD Comment: Save Result Nurse Notified Ordering Provider: KATELYNN PERSON Report Released Date/Time: Jul 03, 2024 10:50 PM Reporting Lab: [facility] [address] Performing Lab: [facility] [address] FINGERSTICK GLUCOSE 126 mg/dL H 70-100 Jul 03, 2024 05:[address] [facility] FINGERSTICK GLUCOSE Specimen Type: BLOOD Comment: Save Result Nurse Notified Ordering Provider: KATELYNN PERSON Report Released Date/Time: Jul 03, 2024 05:46 PM Reporting Lab: [facility] [address] Performing Lab: [facility] [address] FINGERSTICK GLUCOSE 141 mg/dL H 70-100 Jul 03, 2024 02:[address] [facility] POC ABG/ELECTROLYTES Specimen Type: ARTERIAL BLOOD Comment: FIO2 = 97% Patient Temp: 36.0 C Sample Type = ARTERIAL Ordering Provider: MAZIN ARREDONDO Report Released Date/Time: Jul 03, 2024 01:48 PM Reporting Lab: [facility] [address] Performing Lab: [facility] [address] POC PH 7.387 7.35-7.45 POC PCO2 34.4 [...] H 80.0-105.0 Jul 03, 2024 01:[address] [facility] POC ABG/ELECTROLYTES Specimen Type: ARTERIAL BLOOD Comment: FIO2 = 53% Patient Temp: 36.2 C Sample Type = ARTERIAL Ordering Provider: MAZIN ARREDONDO Report Released Date/Time: Jul 03, 2024 01:48 PM Reporting Lab: [facility] [address] Performing Lab: [facility] [address] POC PH 7.280 L 7.35-7.45 POC PCO2 [...] mm[Hg] 80.0-105.0 Jul 03, 2024 06:[address] [facility] URINALYSIS Specimen Type: URINE No comment entered. Ordering Provider: MARYBETH POWELL Report Released Date/Time: Jun 12, 2024 04:01 PM Reporting Lab: [facility] [address] Performing Lab: [facility] [address] URINE COLOR YELLOW SPECIFIC GRAVITY 1.031 1.003-1.03 [...] 250 NEGATIVE Jul 03, 2024 06:[address] [facility] CBC Specimen Type: BLOOD No comment entered. Ordering Provider: MARYBETH POWELL Report Released Date/Time: Jun 12, 2024 03:59 PM Reporting Lab: [facility] [address] Performing Lab: [facility] [address] WBC 15.8 H 4.0-11.0 RBC 5.11 4.60-6.20 HGB 16.1 g/dL 13.5-17.9 HCT 49.1 41.0-54.0 MCV 96.1 fL 80.0-100.0 MCH 31.5 pg 27.0-33.0 MCHC 32.8 g/dL 32.0-37.5 PLT 357 150-400 MPV 9.8 fL 9.1-13.0 RDW 13.7 11.5-14.5 Jun 24, 2024 09:[address] [facility] BASIC METABOLIC PANEL+MG Specimen Type: PLASMA Comment: Specimen received in Lab at: 0948 Ordering Provider: JEVON ZAZUETA Report Released Date/Time: Jun 23, 2024 06:07 PM Reporting Lab: [facility] [address] Performing Lab: [facility] [address] CREATININE 0.8 mg/dL 0.7-1.2 UREA NITROGEN 13 mg/dL 8-26 GLUCOSE 135 mg/dL H 70-100 SODIUM 135 mmol/L L 136-145 POTASSIUM 3.6 mmol/L 3.5-5.1 CHLORIDE 103 mmol/L 98-107 CO2 24 mmol/L 22-29 CALCIUM 9.2 mg/dL 8.4-10.2 MAGNESIUM 1.9 mg/dL 1.6-2.6 ANION GAP 8 mmol/L 5-15 .CREAT EGFR(CKD-EPI) >90 >60 Jun 24, 2024 09:[address] [facility] CBC Specimen Type: BLOOD Comment: Specimen received in Lab at: 0948 Ordering Provider: JEVON ZAZUETA Report Released Date/Time: Jun 23, 2024 06:07 PM Reporting Lab: [facility] [address] Performing Lab: [facility] [address] WBC 15.5 H 4.0-11.0 RBC 4.93 4.60-6.20 HGB 15.2 g/dL 13.5-17.9 HCT 46.5 41.0-54.0 MCV 94.3 fL 80.0-100.0 MCH 30.8 pg 27.0-33.0 MCHC 32.7 g/dL 32.0-37.5 PLT 223 150-400 MPV 11.4 fL 9.1-13.0 RDW 13.9 11.5-14.5 Jun 23, 2024 07:[address] [facility] COMPREHENSIVE METABOLIC PANEL+MG Specimen Type: PLASMA No comment entered. Ordering Provider: JEVON ZAZUETA Report Released Date/Time: Jun 22, 2024 05:51 PM Reporting Lab: [facility] [address] Performing Lab: [facility] [address] CREATININE 0.7 mg/dL 0.7-1.2 UREA NITROGEN 16 [...] >90 >60 Jun 23, 2024 07:[address] [facility] CBC & DIFF Specimen Type: BLOOD Comment: Automated Differential Performed Ordering Provider: JEVON ZAZUETA Report Released Date/Time: Jun 22, 2024 05:51 PM Reporting Lab: [facility] [address] Performing Lab: [facility] [address] WBC 14.9 H 4.0-11.0 RBC 5.09 4.60-6.20 [...] 0.1 0.0-0.1 Jun 22, 2024 06:[address] [facility] CBC Specimen Type: BLOOD No comment entered. Ordering Provider: JEVON ZAZUETA Report Released Date/Time: Jun 22, 2024 05:51 PM Reporting Lab: [facility] [address] Performing Lab: [facility] [address] WBC 16.9 H 4.0-11.0 RBC 5.28 4.60-6.20 HGB 16.9 g/dL 13.5-17.9 HCT 50.4 41.0-54.0 MCV 95.5 fL 80.0-100.0 MCH 32.0 pg 27.0-33.0 MCHC 33.5 g/dL 32.0-37.5 PLT 223 150-400 MPV 10.9 fL 9.1-13.0 RDW 14.0 11.5-14.5 Jun 22, 2024 06:[address] [facility] COMPREHENSIVE METABOLIC PANEL+MG Specimen Type: PLASMA No comment entered. Ordering Provider: JEVON ZAZUETA Report Released Date/Time: Jun 22, 2024 05:51 PM Reporting Lab: [facility] [address] Performing Lab: [facility] [address] CREATININE 0.7 mg/dL 0.7-1.2 UREA NITROGEN 17 [...] >90 >60 Jun 21, 2024 06:[address] [facility] URINALYSIS Specimen Type: URINE No comment entered. Ordering Provider: DELIA MARTINEZ Report Released Date/Time: Jun 21, 2024 05:45 PM Reporting Lab: [facility] [address] Performing Lab: [facility] [address] URINE COLOR YELLOW SPECIFIC GRAVITY 1.041 H [...] 500 NEGATIVE Jun 21, 2024 05:[address] [facility] POC CREATININE Specimen Type: BLOOD No comment entered. Ordering Provider: DELIA MARTINEZ Report Released Date/Time: Jun 21, 2024 06:07 PM Reporting Lab: [facility] [address] Performing Lab: [facility] [address] POC CREATININE 1.1 mg/dL 0.6-1.3 Jun 21, 2024 05:[address] [facility] POC ABG/LACTATE Specimen Type: VENOUS BLOOD No comment entered. Ordering Provider: DELIA MARTINEZ Report Released Date/Time: Jun 21, 2024 06:07 PM Reporting Lab: [facility] [address] Performing Lab: [facility] [address] POC PH 7.470 H 7.31-7.41 POC PCO2 31.2 mm[Hg] L 41.00-51 .0 0 POC PO2 46 mm[Hg] H 35.0-40.0 POC TCO2 24 mmol/L 24.0-29.0 POC HCO3 22.7 mmol/L L 23.0-28.0 POC BE ECT -1 mmol/L POC SO2 85 H 70-75 POC LACTATE 1.85 mmol/L 0.90-1.70 Jun 21, 2024 05:[address] [facility] PROTHROMBIN TIME/INR Specimen Type: PLASMA No comment entered. Ordering Provider: DELIA MARTINEZ Report Released Date/Time: Jun 21, 2024 05:30 PM Reporting Lab: [facility] [address] Performing Lab: [facility] [address] .INR 1.2 H 0.8-1.1 .PT 13.9 s H 9.4-12.5 Jun 21, 2024 05:[address] [facility] LIPASE Specimen Type: PLASMA No comment entered. Ordering Provider: DELIA MARTINEZ Report Released Date/Time: Jun 21, 2024 05:30 PM Reporting Lab: [facility] [address] Performing Lab: [facility] [address] LIPASE 32 U/L <60 Jun 21, 2024 05:[address] [facility] EXTRA GOLD GEL TUBE Specimen Type: SERUM No comment entered. Ordering Provider: DELIA MARTINEZ Report Released Date/Time: Jun 21, 2024 05:41 PM Reporting Lab: [facility] [address] Performing Lab: [facility] [address] EXTRA GOLD GEL TUBE RECEIVED Jun 21, 2024 05:[address] [facility] COMPREHENSIVE METABOLIC PANEL+MG Specimen Type: PLASMA No comment entered. Ordering Provider: DELIA MARTINEZ Report Released Date/Time: Jun 21, 2024 05:30 PM Reporting Lab: [facility] [address] Performing Lab: [facility] [address] CREATININE 0.9 mg/dL 0.7-1.2 UREA NITROGEN 29 [...] mg/dL <0.5 Jun 21, 2024 05:[address] [facility] CBC & DIFF Specimen Type: BLOOD Comment: Manual Differential Performed Ordering Provider: DELIA MARTINEZ Report Released Date/Time: Jun 21, 2024 05:30 PM Reporting Lab: [facility] [address] Performing Lab: [facility] [address] WBC 21.3 H 4.0-11.0 RBC 5.48 4.60-6.20 [...] MORPHOLOGY PRESENT Jun 08, 2024 10:[address] [facility] PROTHROMBIN TIME/INR Specimen Type: PLASMA No comment entered. Ordering Provider: MARYBETH POWELL Report Released Date/Time: May 28, 2024 09:02 AM Reporting Lab: [facility] [id number] Performing Lab: [facility] [id number] .INR 1.0 0.8-1.1 .PT 11.8 s 9.4-12.5 Jun 08, 2024 10:[address] [facility] HEMOGLOBIN A1C Specimen Type: BLOOD [...] May 28, 2024 09:02 AM Reporting Lab: [facility] [id number] Performing Lab: [facility] [id number] HEMOGLOBIN A1C 4.9 4.0-6.0 Jun 08, 2024 10:[address] [facility] CBC Specimen Type: BLOOD No comment entered. Ordering Provider: MARYBETH POWELL Report Released Date/Time: May 28, 2024 09:02 AM Reporting Lab: [facility] [id number] Performing Lab: [facility] [address] WBC 16.1 H 4.0-11.0 RBC 5.02 4.60-6.20 HGB 16.0 g/dL 13.5-17.9 HCT 47.1 41.0-54.0 MCV 93.8 fL 80.0-100.0 MCH 31.9 pg 27.0-33.0 MCHC 34.0 g/dL 32.0-37.5 PLT 228 150-400 MPV 10.3 fL 9.1-13.0 RDW 14.6 H 11.5-14.5 Jun 08, 2024 10:[address] [facility] BASIC METABOLIC PANEL+MG Specimen Type: PLASMA No comment entered. Ordering Provider: MARYBETH POWELL Report Released Date/Time: May 28, 2024 09:02 AM Reporting Lab: [facility] [phone] Performing Lab: [facility] [address] CREATININE 0.9 mg/dL 0.7-1.2 UREA NITROGEN 15 [...] PM 97.8 55 159/73 16 96 4 [facility] Jul 04, 2024 02:15 PM 56 138/64 16 97 4 [facility] Jul 04, 2024 12:40 PM 97.9 57 152/70 16 95 5 [facility] Jul 04, 2024 10:39 AM 59 132/74 16 96 4 [facility] Jul 04, 2024 08:45 AM 98 61 148/67 16 97 4 [facility] Social History: Smoking Status (Most current) and Tobacco Use (All prior to encounter date) This section includes the most current, and the historical, smoking and tobacco- related health factors from the [place] facility where the Encounter took place. Current Smoking Status This section includes the most current smoking, or tobacco-related health factor, from the [place] facility where the Encounter took place. Date/Time Current Smoking Status Comment Juan Manuel [facility] May 15, 2024 08:30 AM VA-TOBACCO QUIT [address] [facility] Tobacco Use History This section includes a history of the smoking, or tobacco-related health factors, that were collected on or before the date of the Encounter. The data comes from the [place] facility where the Encounter took place. Date/Time Smoking Status/Tobacco Use Comment F acility May 15, 2024 08:30 AM VA-TOBACCO QUIT [address] [facility] May 06, 2023 11:30 AM VA-TOBACCO FORMER USER [facility] May 06, 2023 11:30 AM [...] ALL of a patient's completed or amended [place] Advance and Rescinded Directives. The entries below [...] the Encounter. The data comes from all [place] treatment facilities. Date/Time Radiology Report Provider Source Jul 08, 2024 10:09 AM CHEST 2 VIEWS PA A ND LAT: FLACA WEAVER [id number] -1950 M Exm Date: JUL 08, 2024@10:09 Req Phys: KATELYNN PERSON Loc: 2K07-08-2024@11:49 Img Loc: MAIN X-RAY Service: [place] [address] (Case 24 COMPLETE) CHEST 2 VIEWS PA AND LAT (RAD Detailed) CPT:53324 Reason for Study: Uptrending WBC, POD 5 Clinical History: Roscoe IS NOT under investigation for COVID-19 or is COVID-19 negative POD 5, work up for uptrending wbc Responsible provider name and phone number to notify for critical findings if other than user placing the order and pager listed below: User placing orders pager: Katelynn Person LAST CREATININE 0.9 (07/07/24) Report Status: Verified Date Reported: JUL 08, 2024 Date Verified: JUL 08, 2024 Digital Marketing Intern E-Sig: Report: CHEST 2 VIEWS PA AND LAT HISTORY: Uptrending WBC, POD 5 COMPARISON: CT chest 11/12/2022 TECHNIQUE: Frontal and lateral views of the chest, submitted to the [place] National Teleradiology Program (NTP) for interpretation. FINDINGS: Lungs: Clear. No focal consolidation. No pulmonary edema. Pleura: No pleural effusion or pneumothorax. Mediastinum: Normal size and contour. Bones: Unremarkable. Impression: No acute cardiopulmonary disease. READING PHYSICIAN: Sarbjit Vaughn M.D. -[phone] 07/08/2024 12:[address] [facility] National Teleradiology Program [phone] (For Medical Practitioner Use Only) Attention Patients / Veterans: If you have questions or concerns about these test results, please contact your ordering provider or primary care team. Primary Interpreting Staff: RADIOLOGY,OUTSIDE SERVICE, Staff Physician / RADIOLOGY,OUTSIDE SERVICE [facility] Jul 08, 2024 10:[address] (AP) ABDOMEN/PE LVIS W CONTRAST: MEGFLACADARCI LOBO [id number] -1950 M Exm Date: JUL 08, 2024@10:00 Req Phys: KATELYNN PERSON Loc: 2KG07-08-2024@12:07 Img Loc: CT IMAGING Service: [place] [place] [address] (Case 22 COMPLETE) CT (AP) ABDOMEN/PELVIS W CONTRAST(CT Detailed) CPT:97273 Contrast Media : Non-ionic Iodinated Reason for [...] of the responsible staff physician. Ramsey Maurice 3: Collection DT Specimen Test Name Result Units Ref Range 07/07/2024 05:30 PLASMA CREATININE 0.9 mg/dL 0.7 - 1.2 07/06/2024 05:30 PLASMA CREATININE 0.7 mg/dL 0.7 - 1.2 07/05/2024 05:30 PLASMA CREATININE 0.7 mg/dL 0.7 - 1.2 07/07/2024 05:30 PLASMA .CREAT EGFR(CKD-E >90 Ref: >=60 07/06/2024 05:30 PLASMA .CREAT EGFR(CKD-E >90 Ref: >=60 07/05/2024 05:30 PLASMA .CREAT EGFR(CKD-E >90 Ref: >=60 Allergies: ([facility] only) TERAZOSIN (Mar 13, 2015) Report Status: Verified Date Reported: JUL 08, 2024 Date Verified: JUL 08, 2024 Digital Marketing Intern E-Sig: Report: CT (AP) ABDOMEN/PELVIS W CONTRAST HISTORY: POD 5, Uptrending WBC - Concern for Abscess/other infection COMPARISON: June 21, 2024 TECHNIQUE: CT abdomen and pelvis was performed after intravenous contrast. Axial, sagittal and coronal reformatted images. The study was performed at the local [place] facility and images were sent to the [place] National Teleradiology Program (NTP) for interpretation. Number [...] as noted above READING PHYSICIAN: Celestino Blanc -[phone] 07/08/2024 13:[address] [facility] National Teleradiology Program [phone] (For Medical Practitioner Use Only) Attention Patients / Veterans: If you have questions or concerns about these test results, please contact your ordering provider or primary care team. Primary Interpreting Staff: RADIOLOGY,OUTSIDE SERVICE, Staff Physician / RADIOLOGY,OUTSIDE SERVICE [facility] Jun 22, 2024 11:49 AM ABSCESS DRAIN PLAC EMENT PERITONEAL (P): MEGFLACADARCI LOBO [id number] -1950 M Exm Date: JUN 22, 2024@11:49 Req Phys: ANGELA HOLDEN Loc: [facility]06-22-2024@17:14 Img Loc: INTERVENTIONAL RADIOLOGY Service: [place] [place] [address] (Case [id number] COMPLETE) IR PERITONEAL/RETROPERITONEAL PER(ANI Detailed) CPT:81019 Reason for Study: diverticulitis with abscess (Case 3570 COMPLETE) IR MOD SEDATION 10-22 MIN (ANI Detailed) CPT:18493 Clinical History: IS NOT under investigation for COVID-19 or is COVID-19 negative 73 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 please place abscess drain. Contact number for responsible provider who can be reached for any questions or notifications of critical findings: [phone] n/a LAST CREATININE 0.9 (06/21/24) Report Status: Verified Date Reported: JUN 22, 2024 Date Verified: JUN 22, 2024 Digital Marketing Intern E-Sig:/ES/LISA PENDLETON MD Report: PROCEDURES: Placement of [...] obtained. A pre-procedural Time-Out was performed per [facility] policy. The patient was placed in the supine position on the CT table. Preprocedural scan performed. The suprapubic region/lower abdominal wall was sterilely prepped and draped in the usual fashion.1% lidocaine without epinephrine was used for local anesthesia. Using real-time CT fluoroscopy, a 5 [employer]esis catheter was advanced into the collection in the left pelvis. A wire was coiled in the collection. The tract into the collection was dilated to accommodate the 12 Kosovan locking pigtail drainage catheter. There was return [...] Primary Interpreting Staff: LISA PENDLETON MD, RADIOLOGIST (Digital Marketing Intern) /JRT WALT PENDLETONE R [facility] Jun 22, 2024 11:[address] NEEDLE PLACEMEN T (P): FLACA WEAVER [id number] -1950 M Exm Date: JUN 22, 2024@11:48 Req Phys: ANGELA HOLDEN Loc: 2K/06-22-2024@17:14 Img Loc: CT IMAGING Service: [place] [place] [address] (Case [id number] COMPLETE) CT SCAN FOR NEEDLE PLACEMENT (CT Detailed) CPT:35099 Reason for Study: l pelvic abscess drain Clinical History: Report Status: Verified Date Reported: JUN 22, 2024 Date Verified: JUN 22, 2024 Digital Marketing Intern E-Sig:/ES/LISA PENDLETON MD Report: PROCEDURES: Placement of [...] obtained. A pre-procedural Time-Out was performed per [facility] policy. The patient was placed in the supine position on the CT table. Preprocedural scan performed. The suprapubic region/lower abdominal wall was sterilely prepped and draped in the usual fashion.1% lidocaine without epinephrine was used for local anesthesia. Using real-time CT fluoroscopy, a 5 [employer]esis catheter was advanced into the collection in the left pelvis. A wire was coiled in the collection. The tract into the collection was dilated to accommodate the 12 Kosovan locking pigtail drainage catheter. There was return [...] Primary Interpreting Staff: LISA PENDLETON MD, RADIOLOGIST (Digital Marketing Intern) /JRT LISA PENDLETON [facility] Jun 21, 2024 06:[address] (AP) ABDOMEN/PE LVIS (P): FLACA WEAVER [id number] -1950 M Exm Date: JUN 21, 2024@18:09 Req Phys: DELIA MARTINEZ Loc: [facility] (Re Img Loc: CT IMAGING Service: [place] [address] (Case [id number] COMPLETE) CT (AP) ABDOMEN/PELVIS W CONTRAST(CT Detailed) CPT:13865 Contrast Media : Non-ionic Iodinated Reason for [...] PLASMA .CREAT EGFR(CKD-E >90 Ref: >=60 Allergies: ([facility] only) TERAZOSIN (Mar 13, 2015) Defer to [...] 21, 2024 Date Verified: JUN 21, 2024 Digital Marketing Intern E-Sig:/ES/CARLOS A CUNNINGHAM DO Report: EXAMINATION: CT [...] Interpreting Staff: CARLOS A CUNNINGHAM DO, RADIOLOGIST (Digital Marketing Intern) /CARLOS A ROWELL [facility] Pathology Reports: +/- 30 days [...] the Encounter. The data comes from all [place] treatment facilities. Date/Time Pathology Report Provider Source Jul 03, 2024 05:59 AM LR SURGICAL PATHOL OGY REPORT: LOCAL TITLE: LR SURGICAL PATHOLOGY REPORT STANDARD TITLE: PATHOLOGY REPORT DATE OF NOTE: JUL 06, 2024@10:40:48 ENTRY DATE: JUL 06, 2024@10:40:48 AUTHOR: EDUARDO PALOMARES EXP COSIGNER: URGENCY: STATUS: COMPLETED $APHDR Reporting Lab: [facility] [CLIA# [id number]] [place] [address] - - - - - - - [...] - PATHOLOGY REPORT Accession No. [id number] - - - - - - - [...] - PATHOLOGY REPORT Accession No. [id number] - - - - - - - [...] Second circumferential surgical margin, en face; E-F: Coding Educator diverticula; G: Coding Educator section of mesentery; H: Random desk representative section of additional adipose tissue fragment. [...] Performed By: [facility] [CLIA# [id number]] [place] [address] $FTR - - - - - - [...] - - FLACA WEAVER STANDARD FORM 515 ID:[id number] SEX:M :1950 AGE: 73 LOC:66042 ADM:Jun DX:DIVERTICULITIS PCP: Jatinder Cabrera /alexi/ EDUARDO PALOMARES MD STAFF PATHOLOGIST Signed: 07/06/2024 10:[address] [facility] Jun 22, 2024 01:15 PM LR MICROBIOLOGY RE PORT: Reporting Lab: [facility] [CLIA# [id number]] [place] [address] Accession [UID]: [id number] [[id number]] Received: Jun 22, 2024@13:38 Collection sample: FLUID Collection date: Jun 22, 2024 13:15 Provider: ANGELA HOLDEN Comment on specimen: LLQ ABSCESS, RECEIVED IN ANAEROBIC TRANSPORT VIAL Test(s) ordered: GRAM STAIN.................... completed: Jun 22, 2024 15:03 CULTURE & SUSCEPTIBILITY...... completed: Jun 25, 2024 * BACTERIOLOGY FINAL REPORT => Jun 25, 2024 10:56 TECH CODE: [id number] GRAM STAIN: DIRECT SMEAR of specimen before [...] -=--=--=--=--=--=--=-- Performing Laboratory: Bacteriology Report Performed By: [facility] [CLIA# [id number]] [place] [address] [facility] Jun 22, 2024 01:15 PM LR MICROBIOLOGY RE PORT: Reporting Lab: [facility] [IA# [id number]] [place] [address] Accession [UID]: [id number] [[id number]] Received: Jun 22, 2024@13:38 Collection sample: FLUID Collection date: Jun 22, 2024 13:15 Provider: ANGELA HOLDEN Comment on specimen: LLQ ABSCESS, RECEIVED IN ANAEROBIC TRANSPORT VIAL Test(s) ordered: ANAEROBIC CULTURE............. completed: Jun 28, 2024 * BACTERIOLOGY FINAL REPORT => Jun 28, 2024 10:08 TECH CODE: [id number] CULTURE RESULTS: HEAVY GROWTH MIXED ANAEROBES Comment: including the followin+ Bacteroides fragilis 4+ Bacteroides vulgatus 4+ Clostridium innocuum Beta-lactamase negative 4+ Bacteroides caccae 4+ Parvimonas micra 4+ Bacteroides uniformis 4+ Gemella morbillorum 4+ anaerobic small, Gram Positive Rods 4+ Bacteroides thetaiotaomicron Standard workup is now complete. Bacteriology Remark(s): THIS REPORT IS FINAL =--=--=--=--=--=--=--=--=--= --=--=--=--=--=--=--=--=--=- -=--=--=--=--=--=--=-- Performing Laboratory: Bacteriology Report Performed By: [facility] [CLIA# [id number]] [place] [address] [facility] Jun 21, 2024 06:12 PM LR MICROBIOLOGY RE PORT: Reporting Lab: [facility] [CLIA# [id number]] [place] [address] Accession [UID]: [id number] [[id number]] Received: Jun 21, 2024@18:12 Collection sample: BLOOD [...] -=--=--=--=--=--=--=-- Performing Laboratory: Bacteriology Report Performed By: [facility] [CLIA# [id number]] [facility] [place] [place] [address] [facility] Jun 21, 2024 06:11 PM LR MICROBIOLOGY RE PORT: Reporting Lab: [facility] [CLIA# [id number]] [place] [address] Accession [UID]: [id number] [[id number]] Received: Jun 21, 2024@18:11 Collection sample: BLOOD [...] -=--=--=--=--=--=--=-- Performing Laboratory: Bacteriology Report Performed By: [facility] [CLIA# [id number]] [facility] [place] [address] [facility] Jun 08, 2024 11:00 AM LR MICROBIOLOGY RE PORT: Reporting Lab: [facility] [CLIA# [id number]] [place] [address] Accession [UID]: [id number] [[id number]] Received: Jun 08, 2024@11:00 Collection sample: URINE Collection date: Jun 08, 2024 11:00 Provider: MARYBETH POWELL Comment on specimen: urine Test(s) ordered: CULTURE & SUSCEPTIBILITY...... completed: Jun 09, 2024 * BACTERIOLOGY FINAL REPORT => Jun 09, 2024 19:12 TECH CODE: [id number] CULTURE RESULTS: ESCHERICHIA COLI - Quantity: >100,000 [...] -=--=--=--=--=--=--=-- Performing Laboratory: Bacteriology Report Performed By: [facility] [CLIA# [id number]] [place] [address] [facility] Encounter Notes: All associated encounter notes This section contains the clinical notes associated to the Encounter. Date/Time Encounter Note(s) Provider Source Jul 04, 2024 01:00 AM CRITICAL CARE UNIT NOTE: LOCAL TITLE: [facility] RESPIRATORY THERAPY FLOWSHEET STANDARD TITLE: CRITICAL CARE UNIT NOTE DATE OF NOTE: JUL 04, 2024@01:00 ENTRY DATE: JUL 05, 2024@15:00:45 AUTHOR: KELLY WINKLER EXP COSIGNER: URGENCY: STATUS: COMPLETED This is a place aranda only. Please see [employer] to view document. /es/ [employer] SYSTEM ICU DOCUMENT IMPORT Signed: 07/05/2024 15:[address] [facility] Jul 04, 2024 01:00 AM CRITICAL CARE UNIT NOTE: LOCAL TITLE: [facility] INPATIENT FLOWSHEET STANDARD TITLE: CRITICAL CARE UNIT NOTE DATE OF NOTE: JUL 04, 2024@01:00 ENTRY DATE: JUL 05, 2024@14:30:46 AUTHOR: KELLY WINKLER EXP COSIGNER: URGENCY: STATUS: COMPLETED This is a place aranda only. Please see [employer] to view document. /es/ [employer] SYSTEM ICU DOCUMENT IMPORT Signed: 07/05/2024 14:[address] [facility]
--- OUTSIDE RECORDS SUMMARY | 2024-07-16 07:16 | XMS_ITS ---
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 Date/Time Encounter Type Encounter Description Reason Pro vider Source Jul 05, 2024 11:42 PM Inpatient Visit DAILY HOSPITALIZATION DATA OSORIO VALENZUELA IHAlex Encounter Template Text not used by [...] 2024 08:15 AM AMBULATORY - NONE [facility] Active, Pending, and Scheduled Orders [...] data comes from all [place] treatment facilities. Test Date/Time Test Type Test Details Facility Name May 28, 2024 12:00 AM Laboratory - Blood Bank Order TYPE & SCREEN - LAB BLOOD SP [facility] Jun 08, 2024 09:57 AM Laboratory - Chemi stry Order URINALYSIS URINE WC ONCE [facility] Jun 12, 2024 12:00 AM Laboratory - Chemi stry Order BNP PLASMA SP ONCE [facility] Jun 21, 2024 05:45 PM Laboratory - Blood Bank Order TYPE & SCREEN - LAB BLOOD [facility] Jul 03, 2024 12:00 AM Laboratory - Blood Bank Order TYPE & SCREEN - LAB BLOOD [facility] Jul 16, 2024 12:00 AM Laboratory - Chemi stry Order CBC BLOOD SP ONCE [facility] Jul 17, 2024 12:00 AM Laboratory - Chemi stry Order BASIC METABOLIC PANEL+MG PLASMA SP ONCE [facility] Lab Results: [...] Jul 10, 2024 07:16 AM [facility] PHOSPHORUS Specimen Type: PLASMA No comment entered. Ordering Provider: JUANCARLOS ECHOLS S Report Released Date/Time: Jul 09, 2024 12:23 PM Reporting Lab: [facility] [address] Performing Lab: [facility] [address] PHOSPHORUS 3.0 mg/dL 2.3-4.3 Jul 10, 2024 07:16 AM [facility] BASIC METABOLIC PANEL+MG Specimen Type: PLASMA No comment entered. Ordering Provider: JUANCARLOS ECHOLS S Report Released Date/Time: Jul 09, 2024 12:23 PM Reporting Lab: [facility] [phone] Performing Lab: [facility] [address] CREATININE 0.7 mg/dL 0.7-1.2 UREA NITROGEN 27 mg/dL H 8-26 GLUCOSE 104 mg/dL H 70-100 SODIUM 133 mmol/L L 136-145 POTASSIUM 4.3 mmol/L 3.5-5.1 CHLORIDE 102 mmol/L 98-107 CO2 19 mmol/L L 22-29 CALCIUM 10.1 mg/dL 8.4-10.2 MAGNESIUM 1.9 mg/dL 1.6-2.6 ANION GAP 12 mmol/L 5-15 .CREAT EGFR(CKD-EPI) >90 >60 Jul 10, 2024 07:15 AM [facility] CBC Specimen Type: BLOOD No comment entered. Ordering Provider: JUANCARLOS ECHOLS Report Released Date/Time: Jul 09, 2024 12:23 PM Reporting Lab: [facility] [address] Performing Lab: [facility] [phone] WBC 18.8 H 4.0-11.0 RBC 5.08 4.60-6.20 HGB 15.9 g/dL 13.5-17.9 HCT 46.8 41.0-54.0 MCV 92.1 fL 80.0-100.0 MCH 31.3 pg 27.0-33.0 MCHC 34.0 g/dL 32.0-37.5 PLT 479 H 150-400 MPV 10.2 fL 9.1-13.0 RDW 13.7 11.5-14.5 Jul 09, 2024 07:08 AM [facility] CBC Specimen Type: BLOOD No comment entered. Ordering Provider: QUYNH WEISS AV Report Released Date/Time: Jul 08, 2024 06:18 PM Reporting Lab: [facility] [address] Performing Lab: [facility] [address] WBC 15.3 H 4.0-11.0 RBC 4.91 4.60-6.20 HGB 15.1 g/dL 13.5-17.9 HCT 45.7 41.0-54.0 MCV 93.1 fL 80.0-100.0 MCH 30.8 pg 27.0-33.0 MCHC 33.0 g/dL 32.0-37.5 PLT 443 H 150-400 MPV 10.0 fL 9.1-13.0 RDW 13.5 11.5-14.5 Jul 08, 2024 10:50 AM [facility] URINALYSIS Specimen Type: URINE No comment entered. Ordering Provider: KATELYNN PERSON Report Released Date/Time: Jul 08, 2024 08:41 AM Reporting Lab: [facility] [phone] Performing Lab: [facility] [address] URINE COLOR YELLOW SPECIFIC GRAVITY >1.050 H [...] Jul 08, 2024 09:54 AM [facility] CBC Specimen Type: BLOOD Comment: Specimen received in Lab at: [id number] Ordering Provider: JUANCARLOS ECHOLS Report Released Date/Time: Jul 07, 2024 04:49 PM Reporting Lab: [facility] [address] Performing Lab: [facility] [address] WBC 17.5 H 4.0-11.0 RBC 4.88 4.60-6.20 HGB 14.9 g/dL 13.5-17.9 HCT 45.7 41.0-54.0 MCV 93.6 fL 80.0-100.0 MCH 30.5 pg 27.0-33.0 MCHC 32.6 g/dL 32.0-37.5 PLT 472 H 150-400 MPV 10.2 fL 9.1-13.0 RDW 13.7 11.5-14.5 Jul 08, 2024 09:54 AM [facility] PHOSPHORUS Specimen Type: PLASMA Comment: Specimen received in Lab at: 0952 Ordering Provider: BALAJADIA,MAR IA S Report Released Date/Time: Jul 07, 2024 04:49 PM Reporting Lab: [facility] [address] Performing Lab: [facility] [address] PHOSPHORUS 2.6 mg/dL 2.3-4.3 Jul 08, 2024 09:54 AM [facility] BASIC METABOLIC PANEL+MG Specimen Type: PLASMA Comment: Specimen received in Lab at: 0952 Ordering Provider: JUANCARLOS ECHOLS S Report Released Date/Time: Jul 07, 2024 04:49 PM Reporting Lab: [facility] [address] Performing Lab: [facility] [address] CREATININE 0.9 mg/dL 0.7-1.2 UREA NITROGEN 26 mg/dL 8-26 GLUCOSE 128 mg/dL H 70-100 SODIUM 134 mmol/L L 136-145 POTASSIUM 3.4 mmol/L L 3.5-5.1 CHLORIDE 100 mmol/L 98-107 CO2 24 mmol/L 22-29 CALCIUM 9.8 mg/dL 8.4-10.2 MAGNESIUM 1.8 mg/dL 1.6-2.6 ANION GAP 10 mmol/L 5-15 .CREAT EGFR(CKD-EPI) >90 >60 Jul 07, 2024 02:00 PM [facility] C DIFF PANEL Specimen Type: FECES No comment entered. Ordering Provider: JEVON ZAZUETA Report Released Date/Time: Jul 07, 2024 12:26 PM Reporting Lab: [facility] [address] Performing Lab: [facility] [address] C DIFF TOX B GENE PCR NEGATIVE Negative Jul 07, 2024 07:41 AM [facility] PHOSPHORUS Specimen Type: PLASMA No comment entered. Ordering Provider: JEVON ZAZUETA Report Released Date/Time: Jul 06, 2024 03:44 PM Reporting Lab: [facility] [address] Performing Lab: [facility] [address] PHOSPHORUS 3.1 mg/dL 2.3-4.3 Jul 07, 2024 07:41 AM [facility] BASIC METABOLIC PANEL+MG Specimen Type: PLASMA No comment entered. Ordering Provider: JEVON ZAZUETA Report Released Date/Time: Jul 06, 2024 03:44 PM Reporting Lab: [facility] [address] Performing Lab: [facility] [address] CREATININE 0.9 mg/dL 0.7-1.2 UREA NITROGEN 20 mg/dL 8-26 GLUCOSE 157 mg/dL H 70-100 SODIUM 136 mmol/L 136-145 POTASSIUM 3.7 mmol/L 3.5-5.1 CHLORIDE 102 mmol/L 98-107 CO2 21 mmol/L L 22-29 CALCIUM 9.8 mg/dL 8.4-10.2 MAGNESIUM 1.9 mg/dL 1.6-2.6 ANION GAP 13 mmol/L 5-15 .CREAT EGFR(CKD-EPI) >90 >60 Jul 07, 2024 07:40 AM [facility] CBC Specimen Type: BLOOD No comment entered. Ordering Provider: JEVON ZAZUETA Report Released Date/Time: Jul 06, 2024 03:44 PM Reporting Lab: [facility] [address] Performing Lab: [facility] [address] WBC 21.2 H 4.0-11.0 RBC 5.09 4.60-6.20 HGB 15.9 g/dL 13.5-17.9 HCT 48.3 41.0-54.0 MCV 94.9 fL 80.0-100.0 MCH 31.2 pg 27.0-33.0 MCHC 32.9 g/dL 32.0-37.5 PLT 500 H 150-400 MPV 10.3 fL 9.1-13.0 RDW 13.6 11.5-14.5 Jul 06, 2024 07:21 AM [facility] CBC Specimen Type: BLOOD No comment entered. Ordering Provider: JEVON ZAZUETA Report Released Date/Time: Jul 05, 2024 01:22 PM Reporting Lab: [facility] [address] Performing Lab: [facility] [address] WBC 18.0 H 4.0-11.0 RBC 4.83 4.60-6.20 HGB 14.6 g/dL 13.5-17.9 HCT 45.5 41.0-54.0 MCV 94.2 fL 80.0-100.0 MCH 30.2 pg 27.0-33.0 MCHC 32.1 g/dL 32.0-37.5 PLT 368 150-400 MPV 10.4 fL 9.1-13.0 RDW 13.6 11.5-14.5 Jul 06, 2024 07:21 AM [facility] PHOSPHORUS Specimen Type: PLASMA No comment entered. Ordering Provider: JEVON ZAZUETA Report Released Date/Time: Jul 05, 2024 01:22 PM Reporting Lab: [facility] [address] Performing Lab: [facility] [address] PHOSPHORUS 3.6 mg/dL 2.3-4.3 Jul 06, 2024 07:21 AM [facility] BASIC METABOLIC PANEL+MG Specimen Type: PLASMA No comment entered. Ordering Provider: JEVON ZAZUETA Report Released Date/Time: Jul 05, 2024 01:22 PM Reporting Lab: [facility] [address] Performing Lab: [facility] [address] CREATININE 0.7 mg/dL 0.7-1.2 UREA NITROGEN 12 mg/dL 8-26 GLUCOSE 108 mg/dL H 70-100 SODIUM 138 mmol/L 136-145 POTASSIUM 3.4 mmol/L L 3.5-5.1 CHLORIDE 104 mmol/L 98-107 CO2 20 mmol/L L 22-29 CALCIUM 9.3 mg/dL 8.4-10.2 MAGNESIUM 1.9 mg/dL 1.6-2.6 ANION GAP 14 mmol/L 5-15 .CREAT EGFR(CKD-EPI) >90 >60 Jul 05, 2024 07:17 AM [facility] MAGNESIUM Specimen Type: PLASMA No comment entered. Ordering Provider: JUANCARLOS ECHOLS S Report Released Date/Time: Jul 04, 2024 09:39 AM Reporting Lab: [facility] [address] Performing Lab: [facility] [address] MAGNESIUM 2.0 mg/dL 1.6-2.6 Jul 05, 2024 07:17 AM [facility] PHOSPHORUS Specimen Type: PLASMA No comment entered. Ordering Provider: JUANCARLOS ECHOLS S Report Released Date/Time: Jul 04, 2024 09:39 AM Reporting Lab: [facility] [address] Performing Lab: [facility] [address] PHOSPHORUS 2.0 mg/dL L 2.3-4.3 Jul 05, 2024 07:17 AM [facility] BASIC METABOLIC PANEL+MG Specimen Type: PLASMA No comment entered. Ordering Provider: JUANCARLOS ECHOLS S Report Released Date/Time: Jul 04, 2024 09:39 AM Reporting Lab: [facility] [address] Performing Lab: [facility] [address] CREATININE 0.7 mg/dL 0.7-1.2 UREA NITROGEN 12 mg/dL 8-26 GLUCOSE 84 mg/dL 70-100 SODIUM 135 mmol/L L 136-145 POTASSIUM 3.8 mmol/L 3.5-5.1 CHLORIDE 104 mmol/L 98-107 CO2 24 mmol/L 22-29 CALCIUM 9.3 mg/dL 8.4-10.2 MAGNESIUM 2.0 mg/dL 1.6-2.6 ANION GAP 7 mmol/L 5-15 .CREAT EGFR(CKD-EPI) >90 >60 Jul 05, 2024 07:16 AM [facility] CBC Specimen Type: BLOOD No comment entered. Ordering Provider: JUANCARLOS ECHOLS S Report Released Date/Time: Jul 04, 2024 09:39 AM Reporting Lab: [facility] [address] Performing Lab: [facility] [address] WBC 18.3 H 4.0-11.0 RBC 4.49 L 4.60-6.20 HGB 14.1 g/dL 13.5-17.9 HCT 43.4 41.0-54.0 MCV 96.7 fL 80.0-100.0 MCH 31.4 pg 27.0-33.0 MCHC 32.5 g/dL 32.0-37.5 PLT 317 150-400 MPV 10.0 fL 9.1-13.0 RDW 13.9 11.5-14.5 Jul 04, 2024 07:17 AM [facility] BASIC METABOLIC PANEL+MG Specimen Type: PLASMA No comment entered. Ordering Provider: GABINO CAMERON Report Released Date/Time: Jul 03, 2024 06:31 PM Reporting Lab: [facility] [address] Performing Lab: [facility] [address] CREATININE 0.7 mg/dL 0.7-1.2 UREA NITROGEN 16 mg/dL 8-26 GLUCOSE 129 mg/dL H 70-100 SODIUM 137 mmol/L 136-145 POTASSIUM 3.7 mmol/L 3.5-5.1 CHLORIDE 107 mmol/L 98-107 CO2 22 mmol/L 22-29 CALCIUM 9.0 mg/dL 8.4-10.2 MAGNESIUM 1.9 mg/dL 1.6-2.6 ANION GAP 8 mmol/L 5-15 .CREAT EGFR(CKD-EPI) >90 >60 Jul 04, 2024 07:17 AM [facility] PHOSPHORUS Specimen Type: PLASMA No comment entered. Ordering Provider: GABINO CAMERON Report Released Date/Time: Jul 03, 2024 06:31 PM Reporting Lab: [facility] [address] Performing Lab: [facility] [address] PHOSPHORUS 2.8 mg/dL 2.3-4.3 Jul 04, 2024 07:16 AM [facility] CBC Specimen Type: BLOOD No comment entered. Ordering Provider: GABINO CAMERON Report Released Date/Time: Jul 03, 2024 06:31 PM Reporting Lab: [facility] [address] Performing Lab: [facility] [address] WBC 20.6 H 4.0-11.0 RBC 4.63 4.60-6.20 HGB 14.2 g/dL 13.5-17.9 HCT 43.4 41.0-54.0 MCV 93.7 fL 80.0-100.0 MCH 30.7 pg 27.0-33.0 MCHC 32.7 g/dL 32.0-37.5 PLT 329 150-400 MPV 10.4 fL 9.1-13.0 RDW 13.8 11.5-14.5 Jul 04, 2024 07:16 AM [facility] CBC & DIFF Specimen Type: BLOOD Comment: Manual Differential Performed Ordering Provider: GABINO CAMERON Report Released Date/Time: Jul 03, 2024 06:31 PM Reporting Lab: [facility] [address] Performing Lab: [facility] [address] WBC 20.6 H 4.0-11.0 RBC 4.63 4.60-6.20 [...] Jul 04, 2024 07:15 AM [facility] BNP Specimen Type: PLASMA No comment entered. Ordering Provider: GABINO CAMERON Report Released Date/Time: Jul 03, 2024 06:31 PM Reporting Lab: [facility] [address] Performing Lab: [facility] [address] BNP 292 pg/mL H <99 Jul 03, 2024 10:32 PM [facility] FINGERSTICK GLUCOSE Specimen Type: BLOOD Comment: Save Result Nurse Notified Ordering Provider: KATELYNN PERSON Report Released Date/Time: Jul 03, 2024 10:50 PM Reporting Lab: [facility] [address] Performing Lab: [facility] [address] FINGERSTICK GLUCOSE 126 mg/dL H 70-100 Jul 03, 2024 05:33 PM [facility] FINGERSTICK GLUCOSE Specimen Type: BLOOD Comment: Save Result Nurse Notified Ordering Provider: KATELYNN PERSON Report Released Date/Time: Jul 03, 2024 05:46 PM Reporting Lab: [facility] [address] Performing Lab: [facility] [address] FINGERSTICK GLUCOSE 141 mg/dL H 70-100 Jul 03, 2024 02:31 PM [facility] POC ABG/ELECTROLYTES Specimen Type: ARTERIAL BLOOD Comment: FIO2 = 97% Patient Temp: 36.0 C Sample Type = ARTERIAL Ordering Provider: MAZIN ARREDONDO Report Released Date/Time: Jul 03, 2024 01:48 PM Reporting Lab: [facility] [address] Performing Lab: [facility] [address] POC PH 7.387 7.35-7.45 POC PCO2 34.4 [...] Jul 03, 2024 01:05 PM [facility] POC ABG/ELECTROLYTES Specimen Type: ARTERIAL BLOOD Comment: FIO2 = 53% Patient Temp: 36.2 C Sample Type = ARTERIAL Ordering Provider: MAZIN ARREDONDO Report Released Date/Time: Jul 03, 2024 01:48 PM Reporting Lab: [facility] [address] Performing Lab: [facility] [address] POC PH 7.280 L 7.35-7.45 POC PCO2 [...] Jul 03, 2024 06:15 AM [facility] URINALYSIS Specimen Type: URINE No comment entered. Ordering Provider: MARYBETH POWELL Report Released Date/Time: Jun 12, 2024 04:01 PM Reporting Lab: [facility] [address] Performing Lab: [facility] [address] URINE COLOR YELLOW SPECIFIC GRAVITY 1.031 1.003-1.03 [...] Jul 03, 2024 06:13 AM [facility] CBC Specimen Type: BLOOD No comment entered. Ordering Provider: MARYBETH POWELL Report Released Date/Time: Jun 12, 2024 03:59 PM Reporting Lab: [facility] [address] Performing Lab: [facility] [address] WBC 15.8 H 4.0-11.0 RBC 5.11 4.60-6.20 HGB 16.1 g/dL 13.5-17.9 HCT 49.1 41.0-54.0 MCV 96.1 fL 80.0-100.0 MCH 31.5 pg 27.0-33.0 MCHC 32.8 g/dL 32.0-37.5 PLT 357 150-400 MPV 9.8 fL 9.1-13.0 RDW 13.7 11.5-14.5 Jun 24, 2024 09:50 AM [facility] BASIC METABOLIC PANEL+MG Specimen Type: PLASMA Comment: Specimen received in Lab at: 0948 Ordering Provider: JEVON ZAZUETA Report Released Date/Time: Jun 23, 2024 06:07 PM Reporting Lab: [facility] [address] Performing Lab: [facility] [address] CREATININE 0.8 mg/dL 0.7-1.2 UREA NITROGEN 13 mg/dL 8-26 GLUCOSE 135 mg/dL H 70-100 SODIUM 135 mmol/L L 136-145 POTASSIUM 3.6 mmol/L 3.5-5.1 CHLORIDE 103 mmol/L 98-107 CO2 24 mmol/L 22-29 CALCIUM 9.2 mg/dL 8.4-10.2 MAGNESIUM 1.9 mg/dL 1.6-2.6 ANION GAP 8 mmol/L 5-15 .CREAT EGFR(CKD-EPI) >90 >60 Jun 24, 2024 09:50 AM [facility] CBC Specimen Type: BLOOD Comment: Specimen received in Lab at: 0948 Ordering Provider: JEVON ZAZUETA Report Released Date/Time: Jun 23, 2024 06:07 PM Reporting Lab: [facility] [address] Performing Lab: [facility] [address] WBC 15.5 H 4.0-11.0 RBC 4.93 4.60-6.20 HGB 15.2 g/dL 13.5-17.9 HCT 46.5 41.0-54.0 MCV 94.3 fL 80.0-100.0 MCH 30.8 pg 27.0-33.0 MCHC 32.7 g/dL 32.0-37.5 PLT 223 150-400 MPV 11.4 fL 9.1-13.0 RDW 13.9 11.5-14.5 Jun 23, 2024 07:52 AM [facility] COMPREHENSIVE METABOLIC PANEL+MG Specimen Type: PLASMA No comment entered. Ordering Provider: JEVON ZAZUETA Report Released Date/Time: Jun 22, 2024 05:51 PM Reporting Lab: [facility] [address] Performing Lab: [facility] [address] CREATININE 0.7 mg/dL 0.7-1.2 UREA NITROGEN 16 [...] Jun 23, 2024 07:52 AM [facility] CBC & DIFF Specimen Type: BLOOD Comment: Automated Differential Performed Ordering Provider: JEVON ZAZUETA Report Released Date/Time: Jun 22, 2024 05:51 PM Reporting Lab: [facility] [address] Performing Lab: [facility] [address] WBC 14.9 H 4.0-11.0 RBC 5.09 4.60-6.20 [...] Jun 22, 2024 06:10 PM [facility] CBC Specimen Type: BLOOD No comment entered. Ordering Provider: JEVON ZAZUETA Report Released Date/Time: Jun 22, 2024 05:51 PM Reporting Lab: [facility] [address] Performing Lab: [facility] [address] WBC 16.9 H 4.0-11.0 RBC 5.28 4.60-6.20 HGB 16.9 g/dL 13.5-17.9 HCT 50.4 41.0-54.0 MCV 95.5 fL 80.0-100.0 MCH 32.0 pg 27.0-33.0 MCHC 33.5 g/dL 32.0-37.5 PLT 223 150-400 MPV 10.9 fL 9.1-13.0 RDW 14.0 11.5-14.5 Jun 22, 2024 06:10 PM [facility] COMPREHENSIVE METABOLIC PANEL+MG Specimen Type: PLASMA No comment entered. Ordering Provider: JEVON ZAZUETA Report Released Date/Time: Jun 22, 2024 05:51 PM Reporting Lab: [facility] [address] Performing Lab: [facility] [address] CREATININE 0.7 mg/dL 0.7-1.2 UREA NITROGEN 17 [...] Jun 21, 2024 06:48 PM [facility] URINALYSIS Specimen Type: URINE No comment entered. Ordering Provider: DELIA MARTINEZ Report Released Date/Time: Jun 21, 2024 05:45 PM Reporting Lab: [facility] [address] Performing Lab: [facility] [address] URINE COLOR YELLOW SPECIFIC GRAVITY 1.041 H [...] Jun 21, 2024 05:34 PM [facility] POC CREATININE Specimen Type: BLOOD No comment entered. Ordering Provider: DELIA MARTINEZ Report Released Date/Time: Jun 21, 2024 06:07 PM Reporting Lab: [facility] [address] Performing Lab: [facility] [address] POC CREATININE 1.1 mg/dL 0.6-1.3 Jun 21, 2024 05:30 PM [facility] POC ABG/LACTATE Specimen Type: VENOUS BLOOD No comment entered. Ordering Provider: DELIA MARTINEZ Report Released Date/Time: Jun 21, 2024 06:07 PM Reporting Lab: [facility] [address] Performing Lab: [facility] [address] POC PH 7.470 H 7.31-7.41 POC PCO2 31.2 mm[Hg] L 41.00-51 .0 0 POC PO2 46 mm[Hg] H 35.0-40.0 POC TCO2 24 mmol/L 24.0-29.0 POC HCO3 22.7 mmol/L L 23.0-28.0 POC BE ECT -1 mmol/L POC SO2 85 H 70-75 POC LACTATE 1.85 mmol/L 0.90-1.70 Jun 21, 2024 05:24 PM [facility] PROTHROMBIN TIME/INR Specimen Type: PLASMA No comment entered. Ordering Provider: DELIA MARTINEZ Report Released Date/Time: Jun 21, 2024 05:30 PM Reporting Lab: [facility] [address] Performing Lab: [facility] [address] .INR 1.2 H 0.8-1.1 .PT 13.9 s H 9.4-12.5 Jun 21, 2024 05:24 PM [facility] LIPASE Specimen Type: PLASMA No comment entered. Ordering Provider: DELIA MARTINEZ Report Released Date/Time: Jun 21, 2024 05:30 PM Reporting Lab: [facility] [address] Performing Lab: [facility] [address] LIPASE 32 U/L <60 Jun 21, 2024 05:24 PM [facility] EXTRA GOLD GEL TUBE Specimen Type: SERUM No comment entered. Ordering Provider: DELIA MARTINEZ Report Released Date/Time: Jun 21, 2024 05:41 PM Reporting Lab: [facility] [address] Performing Lab: [facility] [address] EXTRA GOLD GEL TUBE RECEIVED Jun 21, 2024 05:24 PM [facility] COMPREHENSIVE METABOLIC PANEL+MG Specimen Type: PLASMA No comment entered. Ordering Provider: DELIA MARTINEZ Report Released Date/Time: Jun 21, 2024 05:30 PM Reporting Lab: [facility] [address] Performing Lab: [facility] [address] CREATININE 0.9 mg/dL 0.7-1.2 UREA NITROGEN 29 [...] Jun 21, 2024 05:24 PM [facility] CBC & DIFF Specimen Type: BLOOD Comment: Manual Differential Performed Ordering Provider: DELIA MARTINEZ Report Released Date/Time: Jun 21, 2024 05:30 PM Reporting Lab: [facility] [address] Performing Lab: [facility] [address] WBC 21.3 H 4.0-11.0 RBC 5.48 4.60-6.20 [...] Jun 08, 2024 10:59 AM [facility] HEMOGLOBIN A1C Specimen Type: BLOOD Comment: Values [...] May 28, 2024 09:02 AM Reporting Lab: [facility] [address] Performing Lab: [facility] [address] HEMOGLOBIN A1C 4.9 4.0-6.0 Jun 08, 2024 10:59 AM [facility] CBC Specimen Type: BLOOD No comment entered. Ordering Provider: MARYBETH POWELL Report Released Date/Time: May 28, 2024 09:02 AM Reporting Lab: [facility] [address] Performing Lab: [facility] [address] WBC 16.1 H 4.0-11.0 RBC 5.02 4.60-6.20 HGB 16.0 g/dL 13.5-17.9 HCT 47.1 41.0-54.0 MCV 93.8 fL 80.0-100.0 MCH 31.9 pg 27.0-33.0 MCHC 34.0 g/dL 32.0-37.5 PLT 228 150-400 MPV 10.3 fL 9.1-13.0 RDW 14.6 H 11.5-14.5 Jun 08, 2024 10:59 AM [facility] PROTHROMBIN TIME/INR Specimen Type: PLASMA No comment entered. Ordering Provider: MARYBETH POWELL Report Released Date/Time: May 28, 2024 09:02 AM Reporting Lab: [facility] [id number] Performing Lab: [facility] [address] .INR 1.0 0.8-1.1 .PT 11.8 s 9.4-12.5 Jun 08, 2024 10:59 AM [facility] BASIC METABOLIC PANEL+MG Specimen Type: PLASMA No comment entered. Ordering Provider: MARYBETH POWELL Report Released Date/Time: May 28, 2024 09:02 AM Reporting Lab: [facility] [id number] Performing Lab: [facility] [address] CREATININE 0.9 mg/dL 0.7-1.2 UREA NITROGEN 15 [...] Source Jul 05, 2024 08:50 PM 7 [facility] Jul 05, 2024 05:00 PM 6 [facility] Jul 05, 2024 04:58 PM 7 [facility] Jul 05, 2024 04:51 PM 98.5 97 147/88 16 95 7 [facility] Jul 05, 2024 03:20 PM 5 [facility] Social History: Smoking Status [...] YRS OR MORE [facility] May 06, 2023 11:30 AM VA-TOBACCO 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 USER [facility] May 06, 2023 11:30 AM VA-TOBACCO QUIT [...] 2016 CLINICAL WARNING [facility] Radiology Reports: +/- 30 [...] VIEWS PA A ND LAT: FLACA WEAVER [id number] -1950 M Exm Date: JUL 08, 2024@10:09 Req Phys: KATELYNN PERSON Loc: 2KG07-08-2024@11:49 Img Loc: MAIN X-RAY Service: [place] [address] (Case 24 COMPLETE) CHEST 2 VIEWS PA AND LAT (RAD Detailed) CPT:92087 Reason for Study: Uptrending WBC, POD 5 [...] 08, 2024 Date Verified: JUL 08, 2024 Mammal Keeper E-Sig: Report: CHEST 2 VIEWS PA AND LAT HISTORY: Uptrending WBC, POD 5 COMPARISON: CT chest 11/12/2022 TECHNIQUE: Frontal and lateral views of the chest, submitted to the [place] [facility] Telerad[facility] Program (NTP) for interpretation. FINDINGS: Lungs: Clear. No focal consolidation. No pulmonary edema. Pleura: No pleural effusion or pneumothorax. Mediastinum: Normal size and contour. Bones: Unremarkable. Impression: No acute cardiopulmonary disease. READING PHYSICIAN: Sarbjit Vaughn M.D. -[id number] 07/08/2024 12:46 [facility] National Teleradiology Program [phone] (For Medical Practitioner Use Only) Attention Patients / Veterans: If you have questions or concerns about these test results, please contact your ordering provider or primary care team. Primary Interpreting Staff: RADIOLOGY,OUTSIDE SERVICE, Staff Physician / RADIOLOGY,OUTSIDE SERVICE [facility] Jul 08, 2024 10:[address] (AP) ABDOMEN/PE LVIS W CONTRAST: MEGFLACADARCI LOBO [id number] -1950 M Exm Date: JUL 08, 2024@10:00 Req Phys: KATELYNN PERSON Pat Loc: [facility]07-08-2024@12:07 Img Loc: CT IMAGING Service: [place] [address] (Case 22 COMPLETE) CT (AP) ABDOMEN/PELVIS W CONTRAST(CT Detailed) CPT:32728 Contrast Media : Non-ionic Iodinated Reason for [...] PLASMA .CREAT EGFR(CKD-E >90 Ref: >=60 Allergies: ([place] only) TERAZOSIN (Mar 13, 2015) Report Status: Verified Date Reported: JUL 08, 2024 Date Verified: JUL 08, 2024 Mammal Keeper E-Sig: Report: CT (AP) ABDOMEN/PELVIS W CONTRAST HISTORY: POD 5, Uptrending WBC - Concern for Abscess/other infection COMPARISON: June 21, 2024 TECHNIQUE: CT abdomen and pelvis was performed after intravenous contrast. Axial, sagittal and coronal reformatted images. The study was performed at the local [place] facility and images were sent to the [place] [facility] Telerad[facility] (NTP) for interpretation. Number [...] as noted above READING PHYSICIAN: Celestino Blanc -[phone] 07/08/2024 13:04 [facility] Teleradiology Program [phone] (For Medical Practitioner Use Only) Attention Patients / Veterans: If you have questions or concerns about these test results, please contact your ordering provider or primary care team. Primary Interpreting Staff: RADIOLOGY,OUTSIDE SERVICE, Staff Physician / RADIOLOGY,OUTSIDE SERVICE [facility] Jun 22, 2024 11:49 AM ABSCESS DRAIN PLAC EMENT PERITONEAL (P): FLACA WEAVER [id number] -1950 M Exm Date: JUN 22, 2024@11:49 Req Phys: ANGELA HOLDEN Pat Loc: [facility]06-22-2024@17:14 Img Loc: INTERVENTIONAL RADIOLOGY Service: [place] [address] (Case [id number] COMPLETE) IR PERITONEAL/RETROPERITONEAL PER(ANI Detailed) CPT:33006 Reason for Study: diverticulitis with abscess (Case 3570 COMPLETE) IR MOD SEDATION 10-22 MIN (ANI Detailed) CPT:23506 Clinical History: [place] IS NOT under investigation for COVID-19 or is COVID-19 negative 73 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 please place abscess drain. Contact number for responsible provider who can be reached for any questions or notifications of critical findings: [phone] n/a LAST CREATININE 0.9 (06/21/24) Report Status: Verified Date Reported: JUN 22, 2024 Date Verified: JUN 22, 2024 Mammal Keeper E-Sig:/ES/LISA PENDLETON MD Report: PROCEDURES: Placement of [...] obtained. A pre-procedural Time-Out was performed per [facility] policy. The patient was placed in the supine position on the CT table. Preprocedural scan performed. The suprapubic region/lower abdominal wall was sterilely prepped and draped in the usual fashion.1% lidocaine without epinephrine was used for local anesthesia. Using real-time CT fluoroscopy, a 5 Beninese Six Apart centesis catheter was advanced into the collection in the left pelvis. A wire was coiled in the collection. The tract into the collection was dilated to accommodate the 12 Beninese locking pigtail drainage catheter. There was return [...] Primary Interpreting Staff: LISA PENDLETON MD, RADIOLOGIST (Mammal Keeper) /LISA CARDONA [facility] Jun 22, 2024 11:[address] NEEDLE PLACEMEN T (P): FLACA EWAVER [id number] -1950 M Exm Date: JUN 22, 2024@11:48 Req Phys: ANGELA HOLDEN Loc: 2K/06-22-2024@17:14 Img Loc: CT IMAGING Service: [place] [address] (Case [id number] COMPLETE) CT SCAN FOR NEEDLE PLACEMENT (CT Detailed) CPT:10420 Reason for Study: l pelvic abscess drain Clinical History: Report Status: Verified Date Reported: JUN 22, 2024 Date Verified: JUN 22, 2024 Mammal Keeper E-Sig:/ES/LISA PENDLETON MD Report: PROCEDURES: Placement of [...] obtained. A pre-procedural Time-Out was performed per [facility] policy. The patient was placed in the supine position on the CT table. Preprocedural scan performed. The suprapubic region/lower abdominal wall was sterilely prepped and draped in the usual fashion.1% lidocaine without epinephrine was used for local anesthesia. Using real-time CT fluoroscopy, a 5 Beninese ReadyCartesis catheter was advanced into the collection in the left pelvis. A wire was coiled in the collection. The tract into the collection was dilated to accommodate the 12 Beninese locking pigtail drainage catheter. There was return [...] Primary Interpreting Staff: LISA PENDLETON MD, RADIOLOGIST (Mammal Keeper) /JRT LISA PENDLETON [facility] Jun 21, 2024 06:[address] (AP) ABDOMEN/PE LVIS (P): FLACA WEAVER [id number] -1950 M Exm Date: JUN 21, 2024@18:09 Req Phys: DELIA MARTINEZ Loc: [facility] WALK-[facility] (Re Img Loc: CT IMAGING Service: [place] [address] (Case [id number] COMPLETE) CT (AP) ABDOMEN/PELVIS W CONTRAST(CT Detailed) CPT:43620 Contrast Media : Non-ionic Iodinated Reason for [...] PLASMA .CREAT EGFR(CKD-E >90 Ref: >=60 Allergies: ([place] only) TERAZOSIN (Mar 13, 2015) Defer to [...] 21, 2024 Date Verified: JUN 21, 2024 Mammal Keeper E-Sig:/ES/CARLOS A CUNNINGHAM DO Report: EXAMINATION: CT [...] Interpreting Staff: CARLOS A CUNNINGHAM DO, RADIOLOGIST (Mammal Keeper) /CARLOS A ROWELL [facility] Pathology Reports: +/- [...] STATUS: COMPLETED $APHDR Reporting Lab: [facility] [CLIA# [id number]] [place] [address] - - - - - - - [...] - PATHOLOGY REPORT Accession No. [id number] - - - - - - - [...] - PATHOLOGY REPORT Accession No. [id number] - - - - - - - [...] Second circumferential surgical margin, en face; E-F: Gum Puller diverticula; G: Gum Puller section of mesentery; H: Random sales representative jewelry section of additional adipose tissue fragment. SS. [...] One colonic tissue ring, bisected transversely. [facility]. [facility]: Microscopic examination performed. DIAGNOSIS: 1. Colon, sigmoid, sigmoidectomy-- - Diverticulosis with perforation and focal abscess formation 2. Colon, anastomotic rings, excision-- - Viable colonic mucosa without diagnostic abnormality /alexi/ EDUARDO PALOMARES MD STAFF PATHOLOGIST Signed Jul 06, 2024@10:40 Performing Laboratory: Surgical Pathology Report Performed By: [facility] [CLIA# [id number]] [place] [address] $FTR - - - - - - [...] - - FLACA WEAVER STANDARD FORM 515 ID:[id number] SEX:M :1950 AGE: 73 LOC:[id number] ADM:Jun DX:DIVERTICULITIS PCP: Jatinder Cabrera /alexi/ EDUARDO PALOMARES MD STAFF PATHOLOGIST Signed: 07/06/2024 10:40 EDUARDO PALOMARES [facility] Jun 22, 2024 01:15 PM LR MICROBIOLOGY RE PORT: Reporting Lab: [facility] [CLIA# [id number]] [place] [address] Accession [UID]: [id number] [[id number]] Received: Jun 22, 2024@13:38 Collection sample: FLUID Collection date: Jun 22, 2024 13:15 Provider: ANGELA HOLDEN Comment on specimen: LLQ ABSCESS, RECEIVED IN ANAEROBIC TRANSPORT VIAL Test(s) ordered: GRAM STAIN.................... completed: Jun 22, 2024 15:03 CULTURE & SUSCEPTIBILITY...... completed: Jun 25, 2024 * BACTERIOLOGY FINAL REPORT => Jun 25, 2024 10:56 TECH CODE: [id number] GRAM STAIN: DIRECT SMEAR of specimen before [...] Performed By: [facility] [CLIA# [id number]] [place] [address] [facility] Jun 22, 2024 01:15 PM LR MICROBIOLOGY RE PORT: Reporting Lab: [facility] [CLIA# [id number]] [place] [address] Accession [UID]: [id number] [[id number]] Received: Jun 22, 2024@13:38 Collection sample: FLUID Collection date: Jun 22, 2024 13:15 Provider: ANGELA HOLDEN Comment on specimen: LLQ ABSCESS, RECEIVED IN ANAEROBIC TRANSPORT VIAL Test(s) ordered: ANAEROBIC CULTURE............. completed: Jun 28, 2024 * BACTERIOLOGY FINAL REPORT => Jun 28, 2024 10:08 TECH CODE: [id number] CULTURE RESULTS: HEAVY GROWTH MIXED ANAEROBES Comment: [...] Performed By: [facility] [CLIA# [id number]] [place] [address] [facility] Jun 21, 2024 06:12 PM LR MICROBIOLOGY RE PORT: Reporting Lab: [facility] [CLIA# [id number]] [place] [address] Accession [UID]: [id number] [[id number]] Received: Jun 21, 2024@18:12 Collection sample: BLOOD [...] Performed By: [facility] [CLIA# [id number]] [place] [address] [facility] Jun 21, 2024 06:11 PM LR MICROBIOLOGY RE PORT: Reporting Lab: [facility] [IA# [id number]] [place] [address] Accession [UID]: [id number] [[id number]] Received: Jun 21, 2024@18:11 Collection sample: BLOOD [...] Performed By: [facility] [CLIA# [id number]] [place] [address] [facility] Jun 08, 2024 11:00 AM LR MICROBIOLOGY RE PORT: Reporting Lab: [facility] [CLIA# [id number]] [place] [address] Accession [UID]: [id number] [[id number]] Received: Jun 08, 2024@11:00 Collection sample: URINE Collection date: Jun 08, 2024 11:00 Provider: MARYBETH POWELL Comment on specimen: urine Test(s) ordered: CULTURE & SUSCEPTIBILITY...... completed: Jun 09, 2024 * BACTERIOLOGY FINAL REPORT => Jun 09, 2024 19:12 TECH CODE: [id number] CULTURE RESULTS: ESCHERICHIA COLI - Quantity: >100,000 [...] Performed By: [facility] [CLIA# [id number]] [place] [address] [facility]
--- OUTSIDE RECORDS SUMMARY | 2024-07-16 07:16 | XMS_ITS ---
[place] DAILY HOSPITALIZATION DATA [facility] Encounter Summary Created on: July 16, 2024 MEG FLACADARCI LOBO : 1950 Sex: Male Author Name [facility] [facility] [place] Address [address] [place] [address] Care Team Providers Care Cotton Roll Packer Name Role Phone JATINDER CABRERA Primary Care [...] PART A Sep 29, 2016 PART A [id number] [phone] JUDY WEAVER PATIENT Selected Encounter This section includes the information on record at [place] for the Encounter. Date/Time Encounter Type Encounter Description Reason Pro vider Source Jul 05, 2024 03:07 PM Inpatient Visit DAILY HOSPITALIZATION DATA MARTI LEE Alex Encounter Template Text not used by [place] [...] 2024 08:15 AM AMBULATORY - NONE [facility] Active, Pending, and Scheduled Orders This section [...] TYPE & SCREEN - LAB BLOOD SP [facility] Jun 08, 2024 09:57 AM Laboratory - Chemi stry Order URINALYSIS URINE WC ONCE [facility] Jun 12, 2024 12:00 AM Laboratory - Chemi stry Order BNP PLASMA SP ONCE [facility] Jun 21, 2024 05:45 PM Laboratory - Blood Bank Order TYPE & SCREEN - LAB BLOOD WC [facility] Jul 03, 2024 12:00 AM Laboratory - Blood Bank Order TYPE & SCREEN - LAB BLOOD [facility] Jul 16, 2024 12:00 AM Laboratory - Chemi stry Order CBC BLOOD SP ONCE [facility] Jul 17, 2024 12:00 AM Laboratory - Chemi stry Order BASIC METABOLIC PANEL+MG PLASMA SP ONCE [facility] Lab [...] Range Comment Jul 10, 2024 07:16 AM [facility] PHOSPHORUS Specimen Type: PLASMA No comment entered. Ordering Provider: JUANCARLOS ECHOLS S Report Released Date/Time: Jul 09, 2024 12:23 PM Reporting Lab: [facility] [address] Performing Lab: [facility] [address] PHOSPHORUS 3.0 mg/dL 2.3-4.3 Jul 10, 2024 07:16 AM [facility] BASIC METABOLIC PANEL+MG Specimen Type: PLASMA No comment entered. Ordering Provider: JUANCARLOS ECHOLS S Report Released Date/Time: Jul 09, 2024 12:23 PM Reporting Lab: [facility] [address] Performing Lab: [facility] [address] CREATININE 0.7 mg/dL 0.7-1.2 UREA NITROGEN 27 mg/dL H 8-26 GLUCOSE 104 mg/dL H 70-100 SODIUM 133 mmol/L L 136-145 POTASSIUM 4.3 mmol/L 3.5-5.1 CHLORIDE 102 mmol/L 98-107 CO2 19 mmol/L L 22-29 CALCIUM 10.1 mg/dL 8.4-10.2 MAGNESIUM 1.9 mg/dL 1.6-2.6 ANION GAP 12 mmol/L 5-15 .CREAT EGFR(CKD-EPI) >90 >60 Jul 10, 2024 07:15 AM [facility] CBC Specimen Type: BLOOD No comment entered. Ordering Provider: JUANCARLOS ECHOLS Report Released Date/Time: Jul 09, 2024 12:23 PM Reporting Lab: [facility] [address] Performing Lab: [facility] [address] WBC 18.8 H 4.0-11.0 RBC 5.08 4.60-6.20 HGB 15.9 g/dL 13.5-17.9 HCT 46.8 41.0-54.0 MCV 92.1 fL 80.0-100.0 MCH 31.3 pg 27.0-33.0 MCHC 34.0 g/dL 32.0-37.5 PLT 479 H 150-400 MPV 10.2 fL 9.1-13.0 RDW 13.7 11.5-14.5 Jul 09, 2024 07:08 AM [facility] CBC Specimen Type: BLOOD No comment entered. Ordering Provider: QUYNH WEISS AV Report Released Date/Time: Jul 08, 2024 06:18 PM Reporting Lab: [facility] [address] Performing Lab: [facility] [address] WBC 15.3 H 4.0-11.0 RBC 4.91 4.60-6.20 HGB 15.1 g/dL 13.5-17.9 HCT 45.7 41.0-54.0 MCV 93.1 fL 80.0-100.0 MCH 30.8 pg 27.0-33.0 MCHC 33.0 g/dL 32.0-37.5 PLT 443 H 150-400 MPV 10.0 fL 9.1-13.0 RDW 13.5 11.5-14.5 Jul 08, 2024 10:50 AM [facility] URINALYSIS Specimen Type: URINE No comment entered. Ordering Provider: KATELYNN PERSON Report Released Date/Time: Jul 08, 2024 08:41 AM Reporting Lab: [facility] [address] Performing Lab: [facility] [address] URINE COLOR YELLOW SPECIFIC GRAVITY >1.050 H [...] NEGATIVE NEGATIVE Jul 08, 2024 09:54 AM [facility] CBC Specimen Type: BLOOD Comment: Specimen received in Lab at: 0952 Ordering Provider: JUANCARLOS ECHOLS Report Released Date/Time: Jul 07, 2024 04:49 PM Reporting Lab: [facility] [address] Performing Lab: [facility] [address] WBC 17.5 H 4.0-11.0 RBC 4.88 4.60-6.20 HGB 14.9 g/dL 13.5-17.9 HCT 45.7 41.0-54.0 MCV 93.6 fL 80.0-100.0 MCH 30.5 pg 27.0-33.0 MCHC 32.6 g/dL 32.0-37.5 PLT 472 H 150-400 MPV 10.2 fL 9.1-13.0 RDW 13.7 11.5-14.5 Jul 08, 2024 09:54 AM [facility] PHOSPHORUS Specimen Type: PLASMA Comment: Specimen received in Lab at: 0952 Ordering Provider: BALAJADIA,MAR IA S Report Released Date/Time: Jul 07, 2024 04:49 PM Reporting Lab: [facility] [address] Performing Lab: [facility] [address] PHOSPHORUS 2.6 mg/dL 2.3-4.3 Jul 08, 2024 09:54 AM [facility] BASIC METABOLIC PANEL+MG Specimen Type: PLASMA Comment: Specimen received in Lab at: 0952 Ordering Provider: JUANCARLOS ECHOLS S Report Released Date/Time: Jul 07, 2024 04:49 PM Reporting Lab: [facility] [address] Performing Lab: [facility] [address] CREATININE 0.9 mg/dL 0.7-1.2 UREA NITROGEN 26 mg/dL 8-26 GLUCOSE 128 mg/dL H 70-100 SODIUM 134 mmol/L L 136-145 POTASSIUM 3.4 mmol/L L 3.5-5.1 CHLORIDE 100 mmol/L 98-107 CO2 24 mmol/L 22-29 CALCIUM 9.8 mg/dL 8.4-10.2 MAGNESIUM 1.8 mg/dL 1.6-2.6 ANION GAP 10 mmol/L 5-15 .CREAT EGFR(CKD-EPI) >90 >60 Jul 07, 2024 02:00 PM [facility] C DIFF PANEL Specimen Type: FECES No comment entered. Ordering Provider: JEVON ZAZUETA Report Released Date/Time: Jul 07, 2024 12:26 PM Reporting Lab: [facility] [phone] Performing Lab: [facility] [address] C DIFF TOX B GENE PCR NEGATIVE Negative Jul 07, 2024 07:41 AM [facility] PHOSPHORUS Specimen Type: PLASMA No comment entered. Ordering Provider: JEVON ZAZUETA Report Released Date/Time: Jul 06, 2024 03:44 PM Reporting Lab: [facility] [address] Performing Lab: [facility] [address] PHOSPHORUS 3.1 mg/dL 2.3-4.3 Jul 07, 2024 07:41 AM [facility] BASIC METABOLIC PANEL+MG Specimen Type: PLASMA No comment entered. Ordering Provider: JEVON ZAZUETA Report Released Date/Time: Jul 06, 2024 03:44 PM Reporting Lab: [facility] [address] Performing Lab: [facility] [address] CREATININE 0.9 mg/dL 0.7-1.2 UREA NITROGEN 20 mg/dL 8-26 GLUCOSE 157 mg/dL H 70-100 SODIUM 136 mmol/L 136-145 POTASSIUM 3.7 mmol/L 3.5-5.1 CHLORIDE 102 mmol/L 98-107 CO2 21 mmol/L L 22-29 CALCIUM 9.8 mg/dL 8.4-10.2 MAGNESIUM 1.9 mg/dL 1.6-2.6 ANION GAP 13 mmol/L 5-15 .CREAT EGFR(CKD-EPI) >90 >60 Jul 07, 2024 07:40 AM [facility] CBC Specimen Type: BLOOD No comment entered. Ordering Provider: JEVON ZAZUETA Report Released Date/Time: Jul 06, 2024 03:44 PM Reporting Lab: [facility] [address] Performing Lab: [facility] [address] WBC 21.2 H 4.0-11.0 RBC 5.09 4.60-6.20 HGB 15.9 g/dL 13.5-17.9 HCT 48.3 41.0-54.0 MCV 94.9 fL 80.0-100.0 MCH 31.2 pg 27.0-33.0 MCHC 32.9 g/dL 32.0-37.5 PLT 500 H 150-400 MPV 10.3 fL 9.1-13.0 RDW 13.6 11.5-14.5 Jul 06, 2024 07:21 AM [facility] CBC Specimen Type: BLOOD No comment entered. Ordering Provider: JEVON ZAZUETA Report Released Date/Time: Jul 05, 2024 01:22 PM Reporting Lab: [facility] [address] Performing Lab: [facility] [address] WBC 18.0 H 4.0-11.0 RBC 4.83 4.60-6.20 HGB 14.6 g/dL 13.5-17.9 HCT 45.5 41.0-54.0 MCV 94.2 fL 80.0-100.0 MCH 30.2 pg 27.0-33.0 MCHC 32.1 g/dL 32.0-37.5 PLT 368 150-400 MPV 10.4 fL 9.1-13.0 RDW 13.6 11.5-14.5 Jul 06, 2024 07:21 AM [facility] PHOSPHORUS Specimen Type: PLASMA No comment entered. Ordering Provider: JEVON ZAZUETA Report Released Date/Time: Jul 05, 2024 01:22 PM Reporting Lab: [facility] [address] Performing Lab: [facility] [address] PHOSPHORUS 3.6 mg/dL 2.3-4.3 Jul 06, 2024 07:21 AM [facility] BASIC METABOLIC PANEL+MG Specimen Type: PLASMA No comment entered. Ordering Provider: JEVON ZAZUETA Report Released Date/Time: Jul 05, 2024 01:22 PM Reporting Lab: [facility] [phone] Performing Lab: [facility] [address] CREATININE 0.7 mg/dL 0.7-1.2 UREA NITROGEN 12 mg/dL 8-26 GLUCOSE 108 mg/dL H 70-100 SODIUM 138 mmol/L 136-145 POTASSIUM 3.4 mmol/L L 3.5-5.1 CHLORIDE 104 mmol/L 98-107 CO2 20 mmol/L L 22-29 CALCIUM 9.3 mg/dL 8.4-10.2 MAGNESIUM 1.9 mg/dL 1.6-2.6 ANION GAP 14 mmol/L 5-15 .CREAT EGFR(CKD-EPI) >90 >60 Jul 05, 2024 07:17 AM [facility] MAGNESIUM Specimen Type: PLASMA No comment entered. Ordering Provider: JUANCARLOS ECHOLS S Report Released Date/Time: Jul 04, 2024 09:39 AM Reporting Lab: [facility] [phone] Performing Lab: [facility] [address] MAGNESIUM 2.0 mg/dL 1.6-2.6 Jul 05, 2024 07:17 AM [facility] PHOSPHORUS Specimen Type: PLASMA No comment entered. Ordering Provider: JUANCARLOS ECHOLS S Report Released Date/Time: Jul 04, 2024 09:39 AM Reporting Lab: [facility] [address] Performing Lab: [facility] [address] PHOSPHORUS 2.0 mg/dL L 2.3-4.3 Jul 05, 2024 07:17 AM [facility] BASIC METABOLIC PANEL+MG Specimen Type: PLASMA No comment entered. Ordering Provider: JUANCARLOS ECHOLS S Report Released Date/Time: Jul 04, 2024 09:39 AM Reporting Lab: [facility] [address] Performing Lab: [facility] [address] CREATININE 0.7 mg/dL 0.7-1.2 UREA NITROGEN 12 mg/dL 8-26 GLUCOSE 84 mg/dL 70-100 SODIUM 135 mmol/L L 136-145 POTASSIUM 3.8 mmol/L 3.5-5.1 CHLORIDE 104 mmol/L 98-107 CO2 24 mmol/L 22-29 CALCIUM 9.3 mg/dL 8.4-10.2 MAGNESIUM 2.0 mg/dL 1.6-2.6 ANION GAP 7 mmol/L 5-15 .CREAT EGFR(CKD-EPI) >90 >60 Jul 05, 2024 07:16 AM [facility] CBC Specimen Type: BLOOD No comment entered. Ordering Provider: JUANCARLOS ECHOLS S Report Released Date/Time: Jul 04, 2024 09:39 AM Reporting Lab: [facility] [address] Performing Lab: [facility] [phone] WBC 18.3 H 4.0-11.0 RBC 4.49 L 4.60-6.20 HGB 14.1 g/dL 13.5-17.9 HCT 43.4 41.0-54.0 MCV 96.7 fL 80.0-100.0 MCH 31.4 pg 27.0-33.0 MCHC 32.5 g/dL 32.0-37.5 PLT 317 150-400 MPV 10.0 fL 9.1-13.0 RDW 13.9 11.5-14.5 Jul 04, 2024 07:17 AM [facility] PHOSPHORUS Specimen Type: PLASMA No comment entered. Ordering Provider: GABINO CAMERON Report Released Date/Time: Jul 03, 2024 06:31 PM Reporting Lab: [facility] [address] Performing Lab: [facility] [address] PHOSPHORUS 2.8 mg/dL 2.3-4.3 Jul 04, 2024 07:17 AM [facility] BASIC METABOLIC PANEL+MG Specimen Type: PLASMA No comment entered. Ordering Provider: GABINO CAMERON Report Released Date/Time: Jul 03, 2024 06:31 PM Reporting Lab: [facility] [address] Performing Lab: [facility] [address] CREATININE 0.7 mg/dL 0.7-1.2 UREA NITROGEN 16 mg/dL 8-26 GLUCOSE 129 mg/dL H 70-100 SODIUM 137 mmol/L 136-145 POTASSIUM 3.7 mmol/L 3.5-5.1 CHLORIDE 107 mmol/L 98-107 CO2 22 mmol/L 22-29 CALCIUM 9.0 mg/dL 8.4-10.2 MAGNESIUM 1.9 mg/dL 1.6-2.6 ANION GAP 8 mmol/L 5-15 .CREAT EGFR(CKD-EPI) >90 >60 Jul 04, 2024 07:16 AM [facility] CBC Specimen Type: BLOOD No comment entered. Ordering Provider: GABINO CAMERON Report Released Date/Time: Jul 03, 2024 06:31 PM Reporting Lab: [facility] [address] Performing Lab: [facility] [address] WBC 20.6 H 4.0-11.0 RBC 4.63 4.60-6.20 HGB 14.2 g/dL 13.5-17.9 HCT 43.4 41.0-54.0 MCV 93.7 fL 80.0-100.0 MCH 30.7 pg 27.0-33.0 MCHC 32.7 g/dL 32.0-37.5 PLT 329 150-400 MPV 10.4 fL 9.1-13.0 RDW 13.8 11.5-14.5 Jul 04, 2024 07:16 AM [facility] CBC & DIFF Specimen Type: BLOOD Comment: Manual Differential Performed Ordering Provider: GABINO CAMERON Report Released Date/Time: Jul 03, 2024 06:31 PM Reporting Lab: [facility] [address] Performing Lab: [facility] [address] WBC 20.6 H 4.0-11.0 RBC 4.63 4.60-6.20 [...] MORPHOLOGY PRESENT Jul 04, 2024 07:15 AM [facility] BNP Specimen Type: PLASMA No comment entered. Ordering Provider: GABINO CAMERON Report Released Date/Time: Jul 03, 2024 06:31 PM Reporting Lab: [facility] [address] Performing Lab: [facility] [address] BNP 292 pg/mL H <99 Jul 03, 2024 10:32 PM [facility] FINGERSTICK GLUCOSE Specimen Type: BLOOD Comment: Save Result Nurse Notified Ordering Provider: KATELYNN PERSON Report Released Date/Time: Jul 03, 2024 10:50 PM Reporting Lab: [facility] [address] Performing Lab: [facility] [address] FINGERSTICK GLUCOSE 126 mg/dL H 70-100 Jul 03, 2024 05:33 PM [facility] FINGERSTICK GLUCOSE Specimen Type: BLOOD Comment: Save Result Nurse Notified Ordering Provider: KATELYNN PERSON Report Released Date/Time: Jul 03, 2024 05:46 PM Reporting Lab: [facility] [address] Performing Lab: [facility] [address] FINGERSTICK GLUCOSE 141 mg/dL H 70-100 Jul 03, 2024 02:31 PM [facility] POC ABG/ELECTROLYTES Specimen Type: ARTERIAL BLOOD Comment: FIO2 = 97% Patient Temp: 36.0 C Sample Type = ARTERIAL Ordering Provider: MAZIN ARREDONDO Report Released Date/Time: Jul 03, 2024 01:48 PM Reporting Lab: [facility] [address] Performing Lab: [facility] [address] POC PH 7.387 7.35-7.45 POC PCO2 34.4 [...] H 80.0-105.0 Jul 03, 2024 01:05 PM [facility] POC ABG/ELECTROLYTES Specimen Type: ARTERIAL BLOOD Comment: FIO2 = 53% Patient Temp: 36.2 C Sample Type = ARTERIAL Ordering Provider: MAZIN ARREDONDO Report Released Date/Time: Jul 03, 2024 01:48 PM Reporting Lab: [facility] [address] Performing Lab: [facility] [address] POC PH 7.280 L 7.35-7.45 POC PCO2 [...] mm[Hg] 80.0-105.0 Jul 03, 2024 06:15 AM [facility] URINALYSIS Specimen Type: URINE No comment entered. Ordering Provider: MARYBETH POWELL Report Released Date/Time: Jun 12, 2024 04:01 PM Reporting Lab: [facility] [address] Performing Lab: [facility] [address] URINE COLOR YELLOW SPECIFIC GRAVITY 1.031 1.003-1.03 [...] 250 NEGATIVE Jul 03, 2024 06:13 AM [facility] CBC Specimen Type: BLOOD No comment entered. Ordering Provider: MARYBETH POWELL Report Released Date/Time: Jun 12, 2024 03:59 PM Reporting Lab: [facility] [address] Performing Lab: [facility] [address] WBC 15.8 H 4.0-11.0 RBC 5.11 4.60-6.20 HGB 16.1 g/dL 13.5-17.9 HCT 49.1 41.0-54.0 MCV 96.1 fL 80.0-100.0 MCH 31.5 pg 27.0-33.0 MCHC 32.8 g/dL 32.0-37.5 PLT 357 150-400 MPV 9.8 fL 9.1-13.0 RDW 13.7 11.5-14.5 Jun 24, 2024 09:50 AM [facility] BASIC METABOLIC PANEL+MG Specimen Type: PLASMA Comment: Specimen received in Lab at: 0948 Ordering Provider: JEVON ZAZUETA Report Released Date/Time: Jun 23, 2024 06:07 PM Reporting Lab: [facility] [address] Performing Lab: [facility] [address] CREATININE 0.8 mg/dL 0.7-1.2 UREA NITROGEN 13 mg/dL 8-26 GLUCOSE 135 mg/dL H 70-100 SODIUM 135 mmol/L L 136-145 POTASSIUM 3.6 mmol/L 3.5-5.1 CHLORIDE 103 mmol/L 98-107 CO2 24 mmol/L 22-29 CALCIUM 9.2 mg/dL 8.4-10.2 MAGNESIUM 1.9 mg/dL 1.6-2.6 ANION GAP 8 mmol/L 5-15 .CREAT EGFR(CKD-EPI) >90 >60 Jun 24, 2024 09:50 AM [facility] CBC Specimen Type: BLOOD Comment: Specimen received in Lab at: 0948 Ordering Provider: JEVON ZAZUETA Report Released Date/Time: Jun 23, 2024 06:07 PM Reporting Lab: [facility] [address] Performing Lab: [facility] [address] WBC 15.5 H 4.0-11.0 RBC 4.93 4.60-6.20 HGB 15.2 g/dL 13.5-17.9 HCT 46.5 41.0-54.0 MCV 94.3 fL 80.0-100.0 MCH 30.8 pg 27.0-33.0 MCHC 32.7 g/dL 32.0-37.5 PLT 223 150-400 MPV 11.4 fL 9.1-13.0 RDW 13.9 11.5-14.5 Jun 23, 2024 07:52 AM [facility] COMPREHENSIVE METABOLIC PANEL+MG Specimen Type: PLASMA No comment entered. Ordering Provider: JEVON ZAZUETA Report Released Date/Time: Jun 22, 2024 05:51 PM Reporting Lab: [facility] [address] Performing Lab: [facility] [address] CREATININE 0.7 mg/dL 0.7-1.2 UREA NITROGEN 16 [...] >90 >60 Jun 23, 2024 07:52 AM [facility] CBC & DIFF Specimen Type: BLOOD Comment: Automated Differential Performed Ordering Provider: JEVON ZAZUETA Report Released Date/Time: Jun 22, 2024 05:51 PM Reporting Lab: [facility] [address] Performing Lab: [facility] [address] WBC 14.9 H 4.0-11.0 RBC 5.09 4.60-6.20 [...] 0.1 0.0-0.1 Jun 22, 2024 06:10 PM [facility] CBC Specimen Type: BLOOD No comment entered. Ordering Provider: JEVON ZAZUETA Report Released Date/Time: Jun 22, 2024 05:51 PM Reporting Lab: [facility] [address] Performing Lab: [facility] [address] WBC 16.9 H 4.0-11.0 RBC 5.28 4.60-6.20 HGB 16.9 g/dL 13.5-17.9 HCT 50.4 41.0-54.0 MCV 95.5 fL 80.0-100.0 MCH 32.0 pg 27.0-33.0 MCHC 33.5 g/dL 32.0-37.5 PLT 223 150-400 MPV 10.9 fL 9.1-13.0 RDW 14.0 11.5-14.5 Jun 22, 2024 06:10 PM [facility] COMPREHENSIVE METABOLIC PANEL+MG Specimen Type: PLASMA No comment entered. Ordering Provider: JEVON ZAZUETA Report Released Date/Time: Jun 22, 2024 05:51 PM Reporting Lab: [facility] [address] Performing Lab: [facility] [address] CREATININE 0.7 mg/dL 0.7-1.2 UREA NITROGEN 17 [...] >90 >60 Jun 21, 2024 06:48 PM [facility] URINALYSIS Specimen Type: URINE No comment entered. Ordering Provider: DELIA MARTINEZ Report Released Date/Time: Jun 21, 2024 05:45 PM Reporting Lab: [facility] [address] Performing Lab: [facility] [address] URINE COLOR YELLOW SPECIFIC GRAVITY 1.041 H [...] 500 NEGATIVE Jun 21, 2024 05:34 PM [facility] POC CREATININE Specimen Type: BLOOD No comment entered. Ordering Provider: DELIA MARTINEZ Report Released Date/Time: Jun 21, 2024 06:07 PM Reporting Lab: [facility] [address] Performing Lab: [facility] [address] POC CREATININE 1.1 mg/dL 0.6-1.3 Jun 21, 2024 05:30 PM [facility] POC ABG/LACTATE Specimen Type: VENOUS BLOOD No comment entered. Ordering Provider: DELIA MARTINEZ Report Released Date/Time: Jun 21, 2024 06:07 PM Reporting Lab: [facility] [address] Performing Lab: [facility] [address] POC PH 7.470 H 7.31-7.41 POC PCO2 31.2 mm[Hg] L 41.00-51 .0 0 POC PO2 46 mm[Hg] H 35.0-40.0 POC TCO2 24 mmol/L 24.0-29.0 POC HCO3 22.7 mmol/L L 23.0-28.0 POC BE ECT -1 mmol/L POC SO2 85 H 70-75 POC LACTATE 1.85 mmol/L 0.90-1.70 Jun 21, 2024 05:24 PM [facility] PROTHROMBIN TIME/INR Specimen Type: PLASMA No comment entered. Ordering Provider: DELIA MARTINEZ Report Released Date/Time: Jun 21, 2024 05:30 PM Reporting Lab: [facility] [phone] Performing Lab: [facility] [phone] .INR 1.2 H 0.8-1.1 .PT 13.9 s H 9.4-12.5 Jun 21, 2024 05:24 PM [facility] LIPASE Specimen Type: PLASMA No comment entered. Ordering Provider: DELIA MARTINEZ Report Released Date/Time: Jun 21, 2024 05:30 PM Reporting Lab: [facility] [phone] Performing Lab: [facility] [phone] LIPASE 32 U/L <60 Jun 21, 2024 05:24 PM [facility] EXTRA GOLD GEL TUBE Specimen Type: SERUM No comment entered. Ordering Provider: DELIA MARTINEZ Report Released Date/Time: Jun 21, 2024 05:41 PM Reporting Lab: [facility] [phone] Performing Lab: [facility] [phone] EXTRA GOLD GEL TUBE RECEIVED Jun 21, 2024 05:24 PM [facility] COMPREHENSIVE METABOLIC PANEL+MG Specimen Type: PLASMA No comment entered. Ordering Provider: DELIA MARTINEZ Report Released Date/Time: Jun 21, 2024 05:30 PM Reporting Lab: [facility] [phone] Performing Lab: [facility] [phone] CREATININE 0.9 mg/dL 0.7-1.2 UREA NITROGEN 29 [...] mg/dL <0.5 Jun 21, 2024 05:24 PM [facility] CBC & DIFF Specimen Type: BLOOD Comment: Manual Differential Performed Ordering Provider: DELIA MARTINEZ Report Released Date/Time: Jun 21, 2024 05:30 PM Reporting Lab: [facility] [phone] Performing Lab: [facility] [phone] WBC 21.3 H 4.0-11.0 RBC 5.48 4.60-6.20 [...] MORPHOLOGY PRESENT Jun 08, 2024 10:59 AM [facility] PROTHROMBIN TIME/INR Specimen Type: PLASMA No comment entered. Ordering Provider: MARYBETH POWELL Report Released Date/Time: May 28, 2024 09:02 AM Reporting Lab: [facility] [phone] Performing Lab: [facility] [phone] .INR 1.0 0.8-1.1 .PT 11.8 s 9.4-12.5 Jun 08, 2024 10:59 AM [facility] HEMOGLOBIN A1C Specimen Type: BLOOD Comment: [...] May 28, 2024 09:02 AM Reporting Lab: [facility] [phone] Performing Lab: [facility] [phone] HEMOGLOBIN A1C 4.9 4.0-6.0 Jun 08, 2024 10:59 AM [facility] CBC Specimen Type: BLOOD No comment entered. Ordering Provider: MARYBETH POWELL Report Released Date/Time: May 28, 2024 09:02 AM Reporting Lab: [facility] [phone] Performing Lab: [facility] [phone] WBC 16.1 H 4.0-11.0 RBC 5.02 4.60-6.20 HGB 16.0 g/dL 13.5-17.9 HCT 47.1 41.0-54.0 MCV 93.8 fL 80.0-100.0 MCH 31.9 pg 27.0-33.0 MCHC 34.0 g/dL 32.0-37.5 PLT 228 150-400 MPV 10.3 fL 9.1-13.0 RDW 14.6 H 11.5-14.5 Jun 08, 2024 10:59 AM [facility] BASIC METABOLIC PANEL+MG Specimen Type: PLASMA No comment entered. Ordering Provider: MARYBETH POWELL Report Released Date/Time: May 28, 2024 09:02 AM Reporting Lab: [facility] [address] Performing Lab: [facility] [address] CREATININE 0.9 mg/dL 0.7-1.2 UREA NITROGEN 15 [...] Source Jul 05, 2024 08:50 PM 7 [facility] Jul 05, 2024 05:00 PM 6 [facility] Jul 05, 2024 04:58 PM 7 [facility] Jul 05, 2024 04:51 PM 98.5 97 147/88 16 95 7 [facility] Jul 05, 2024 03:20 PM 5 [facility] Social History: Smoking Status (Most current) [...] 15, 2024 08:30 AM VA-TOBACCO FORMER USER [facility] Tobacco [...] MORE [facility] May 06, 2023 11:30 AM VA-TOBACCO FORMER USER [facility] May 06, 2023 11:30 AM VA-TOBACCO QUIT 15 YRS OR MORE [facility] Jun 04, 2022 09:00 AM VA-TOBACCO FORMER USER [facility] Jun 04, 2022 09:00 AM [place] [facility] [place] [facility] 2016 CLINICAL WARNING TIM TERAN CARLOSEDUARDO LOZANO [facility] Radiology Reports: +/- 30 days [...] VIEWS PA A ND LAT: FLACA WEAVER [id number] -1950 M Exm Date: JUL 08, 2024@10:09 Req Phys: KATELYNN PERSON Pat Loc: 2KG07-08-2024@11:49 Img Loc: MAIN X-RAY Service: [place] [address] (Case 24 COMPLETE) CHEST 2 VIEWS PA AND LAT (RAD Detailed) CPT:76001 Reason for Study: Uptrending WBC, POD 5 Clinical History: Mobile IS NOT under investigation for COVID-19 or is COVID-19 negative POD 5, work up for uptrending wbc Responsible provider name and phone number to notify for critical findings if other than user placing the order and pager listed below: User placing orders pager: Katelynn Person LAST CREATININE 0.9 (07/07/24) Report Status: Verified Date Reported: JUL 08, 2024 Date Verified: JUL 08, 2024 Maintenance And Utilities Supervisor E-Sig: Report: CHEST 2 VIEWS PA AND LAT HISTORY: Uptrending WBC, POD 5 COMPARISON: CT chest 11/12/2022 TECHNIQUE: Frontal and lateral views of the chest, submitted to the [place] National Teleradiology Program (NTP) for interpretation. FINDINGS: Lungs: Clear. No focal consolidation. No pulmonary edema. Pleura: No pleural effusion or pneumothorax. Mediastinum: Normal size and contour. Bones: Unremarkable. Impression: No acute cardiopulmonary disease. READING PHYSICIAN: Sabrjit Vaughn M.D. -[phone] 07/08/2024 12:46 [facility] National Teleradiology Program [phone] (For Medical Practitioner Use Only) Attention Patients / Veterans: If you have questions or concerns about these test results, please contact your ordering provider or primary care team. Primary Interpreting Staff: RADIOLOGY,OUTSIDE SERVICE, Staff Physician / RADIOLOGY,OUTSIDE SERVICE [facility] Jul 08, 2024 10:[address] (AP) ABDOMEN/PE LVIS W CONTRAST: MEGFLACA YAMIL [id number] -1950 M Exm Date: JUL 08, 2024@10:00 Req Phys: KATELYNN PERSON Pat Loc: G07-08-2024@12:07 Img Loc: CT IMAGING Service: [place] [address] (Case 22 COMPLETE) CT (AP) ABDOMEN/PELVIS W CONTRAST(CT Detailed) CPT:57843 Contrast Media : Non-ionic Iodinated Reason for [...] PLASMA .CREAT EGFR(CKD-E >90 Ref: >=60 Allergies: ([place] only) TERAZOSIN (Mar 13, 2015) Report Status: Verified Date Reported: JUL 08, 2024 Date Verified: JUL 08, 2024 Maintenance And Utilities Supervisor E-Sig: Report: CT (AP) ABDOMEN/PELVIS W CONTRAST HISTORY: POD 5, Uptrending WBC - Concern for Abscess/other infection COMPARISON: June 21, 2024 TECHNIQUE: CT abdomen and pelvis was performed after intravenous contrast. Axial, sagittal and coronal reformatted images. The study was performed at the local [place] facility and images were sent to the [place] National Teleradiology Program (NTP) for interpretation. Number [...] as noted above READING PHYSICIAN: Celestino Blanc -[phone] 07/08/2024 13:04 [facility] To8to Teleradiology Program [phone] (For Medical Practitioner Use Only) Attention Patients / Veterans: If you have questions or concerns about these test results, please contact your ordering provider or primary care team. Primary Interpreting Staff: RADIOLOGY,OUTSIDE SERVICE, Staff Physician / RADIOLOGY,OUTSIDE SERVICE [facility] Jun 22, 2024 11:49 AM ABSCESS DRAIN PLAC EMENT PERITONEAL (P): FLACA WEAVER [id number] -1950 M Exm Date: JUN 22, 2024@11:49 Req Phys: ANGELA HOLDEN Loc: [facility]06-22-2024@17:14 Img Loc: INTERVENTIONAL RADIOLOGY Service: [place] [address] (Case [id number] COMPLETE) IR PERITONEAL/RETROPERITONEAL PER(ANI Detailed) CPT:85032 Reason for Study: diverticulitis with abscess (Case 3570 COMPLETE) IR MOD SEDATION 10-22 MIN (ANI Detailed) CPT:46737 Clinical History: Mobile IS NOT under investigation for COVID-19 or is COVID-19 negative 73 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 please place abscess drain. Contact number for responsible provider who can be reached for any questions or notifications of critical findings: [phone] n/a LAST CREATININE 0.9 (06/21/24) Report Status: Verified Date Reported: JUN 22, 2024 Date Verified: JUN 22, 2024 Maintenance And Utilities Supervisor E-Sig:/ES/LISA PENDLETON MD Report: PROCEDURES: Placement of [...] obtained. A pre-procedural Time-Out was performed per [facility] policy. The patient was placed in the supine position on the CT table. Preprocedural scan performed. The suprapubic region/lower abdominal wall was sterilely prepped and draped in the usual fashion.1% lidocaine without epinephrine was used for local anesthesia. Using real-time CT fluoroscopy, a 5 Citizen Of [place] [employer] centesis catheter was advanced into the collection in the left pelvis. A wire was coiled in the collection. The tract into the collection was dilated to accommodate the 12 Citizen [place] locking pigtail drainage catheter. There was return [...] Primary Interpreting Staff: LISA PENDLETON MD, RADIOLOGIST (Maintenance And Utilities Supervisor) /LISA CARDONA [facility] Jun 22, 2024 11:[address] NEEDLE PLACEMEN T (P): FLACA WEAVER [id number] -1950 M Exm Date: JUN 22, 2024@11:48 Req Phys: ANGELA HOLDEN Loc: 2K/06-22-2024@17:14 Img Loc: CT IMAGING Service: [place] [address] (Case [id number] COMPLETE) CT SCAN FOR NEEDLE PLACEMENT (CT Detailed) CPT:28939 Reason for Study: l pelvic abscess drain Clinical History: Report Status: Verified Date Reported: JUN 22, 2024 Date Verified: JUN 22, 2024 Maintenance And Utilities Supervisor E-Sig:/ES/LISA PENDLETON MD Report: PROCEDURES: Placement of [...] obtained. A pre-procedural Time-Out was performed per [facility] policy. The patient was placed in the supine position on the CT table. Preprocedural scan performed. The suprapubic region/lower abdominal wall was sterilely prepped and draped in the usual fashion.1% lidocaine without epinephrine was used for local anesthesia. Using real-time CT fluoroscopy, a 5 Citizen Of [place] [employer]esis catheter was advanced into the collection in the left pelvis. A wire was coiled in the collection. The tract into the collection was dilated to accommodate the 12 Citizen [place] locking pigtail drainage catheter. There was return [...] Primary Interpreting Staff: LISA PENDLETON MD, RADIOLOGIST (Maintenance And Utilities Supervisor) /JRT LISA PENDLETON [facility] Jun 21, 2024 06:[address] (AP) ABDOMEN/PE LVIS (P): FLACA WEAVER [id number] -1950 M Exm Date: JUN 21, 2024@18:09 Req Phys: DELIA MARTINEZ Loc: [facility] (Re Img Loc: CT IMAGING Service: [place] [address] (Case [id number] COMPLETE) CT (AP) ABDOMEN/PELVIS W CONTRAST(CT Detailed) CPT:44981 Contrast Media : Non-ionic Iodinated Reason for [...] PLASMA .CREAT EGFR(CKD-E >90 Ref: >=60 Allergies: ([place] only) TERAZOSIN (Mar 13, 2015) Defer to [...] 21, 2024 Date Verified: JUN 21, 2024 Maintenance And Utilities Supervisor E-Sig:/ALEXI/CARLOS A CUNNINGHAM DO Report: EXAMINATION: CT [...] Interpreting Staff: CARLOS A CUNNINGHAM DO, RADIOLOGIST (Maintenance And Utilities Supervisor) /CARLOS A ROWELL [facility] Pathology [...] COSIGNER: URGENCY: STATUS: COMPLETED $APHDR Reporting Lab: [facility] [CLIA# [id number]] [place] [address] - - - - - - - [...] - PATHOLOGY REPORT Accession No. [id number] - - - - - - - [...] - PATHOLOGY REPORT Accession No. [id number] - - - - - - - [...] Second circumferential surgical margin, en face; E-F: Fourdrinier Operator diverticula; G: Fourdrinier Operator section of mesentery; H: Random sales and marketing representative section of additional adipose tissue fragment. [...] Performing Laboratory: Surgical Pathology Report Performed By: [facility] [CLIA# [id number]] [place] [address] $FTR - - - - - - [...] - - FLACA WEAVER STANDARD FORM 515 ID:[id number] SEX:M :1950 AGE: 73 LOC:62295 ADM:Jun DX:DIVERTICULITIS PCP: Jatinder Cabrera /alexi/ EDUARDO PALOMARES MD STAFF PATHOLOGIST Signed: 07/06/2024 10:40 EDUARDO PALOMARES [facility] Jun 22, 2024 01:15 PM LR MICROBIOLOGY RE PORT: Reporting Lab: [facility] [CLIA# [id number]] [place] [address] Accession [UID]: [id number] [[id number]] Received: Jun 22, 2024@13:38 Collection sample: FLUID Collection date: Jun 22, 2024 13:15 Provider: ANGELA HOLDEN Comment on specimen: LLQ ABSCESS, RECEIVED IN ANAEROBIC TRANSPORT VIAL Test(s) ordered: GRAM STAIN.................... completed: Jun 22, 2024 15:03 CULTURE & SUSCEPTIBILITY...... completed: Jun 25, 2024 * BACTERIOLOGY FINAL REPORT => Jun 25, 2024 10:56 TECH CODE: [id number] GRAM STAIN: DIRECT SMEAR of specimen before [...] -=--=--=--=--=--=--=-- Performing Laboratory: Bacteriology Report Performed By: [facility] [CLIA# [id number]] [place] [address] [facility] Jun 22, 2024 01:15 PM LR MICROBIOLOGY RE PORT: Reporting Lab: [facility] [CLIA# [id number]] [place] [address] Accession [UID]: [id number] [[id number]] Received: Jun 22, 2024@13:38 Collection sample: FLUID Collection date: Jun 22, 2024 13:15 Provider: ANGELA HOLDEN Comment on specimen: LLQ ABSCESS, RECEIVED IN ANAEROBIC TRANSPORT VIAL Test(s) ordered: ANAEROBIC CULTURE............. completed: Jun 28, 2024 * BACTERIOLOGY FINAL REPORT => Jun 28, 2024 10:08 TECH CODE: [id number] CULTURE RESULTS: HEAVY GROWTH MIXED ANAEROBES Comment: including the followin+ Bacteroides fragilis 4+ Bacteroides vulgatus 4+ Clostridium innocuum Beta-lactamase negative 4+ Bacteroides caccae 4+ Parvimonas micra 4+ Bacteroides uniformis 4+ Gemella morbillorum 4+ anaerobic small, Gram Positive Rods 4+ Bacteroides thetaiotaomicron Standard workup is now complete. Bacteriology Remark(s): THIS REPORT IS FINAL =--=--=--=--=--=--=--=--=--= --=--=--=--=--=--=--=--=--=- -=--=--=--=--=--=--=-- Performing Laboratory: Bacteriology Report Performed By: [facility] [CLIA# [id number]] [place] [address] [facility] Jun 21, 2024 06:12 PM LR MICROBIOLOGY RE PORT: Reporting Lab: [facility] [CLIA# [id number]] [place] [address] Accession [UID]: [id number] [[id number]] Received: Jun 21, 2024@18:12 Collection sample: BLOOD [...] -=--=--=--=--=--=--=-- Performing Laboratory: Bacteriology Report Performed By: [facility] [CLIA# [id number]] [place] [address] [facility] Jun 21, 2024 06:11 PM LR MICROBIOLOGY RE PORT: Reporting Lab: [facility] [CLIA# [id number]] [place] [address] Accession [UID]: [id number] [[id number]] Received: Jun 21, 2024@18:11 Collection sample: BLOOD [...] -=--=--=--=--=--=--=-- Performing Laboratory: Bacteriology Report Performed By: [facility] [CLIA# [id number]] [place] [address] [facility] Jun 08, 2024 11:00 AM LR MICROBIOLOGY RE PORT: Reporting Lab: [facility] [CLIA# [id number]] [place] [address] Accession [UID]: [id number] [[id number]] Received: Jun 08, 2024@11:00 Collection sample: URINE Collection date: Jun 08, 2024 11:00 Provider: MARYBETH POWELL Comment on specimen: urine Test(s) ordered: CULTURE & SUSCEPTIBILITY...... completed: Jun 09, 2024 * BACTERIOLOGY FINAL REPORT => Jun 09, 2024 19:12 TECH CODE: [id number] CULTURE RESULTS: ESCHERICHIA COLI - Quantity: >100,000 [...] -=--=--=--=--=--=--=-- Performing Laboratory: Bacteriology Report Performed By: [facility] [CLIA# [id number]] [place] [address] [facility]
--- OUTSIDE RECORDS SUMMARY | 2024-07-16 07:16 | XMS_ITS ---
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 Date/Time Encounter Type Encounter Description Reason Pro vider Source Jul 06, 2024 01:31 AM Inpatient Visit DAILY HOSPITALIZATION DATA [facility]AM Alex Encounter Template Text not used by PA Plan of Treatment: Future Appointments (+ 6 months) and Future Tests (+/- 45 days) The Plan of Treatment section includes future care activities for the patient from all [place] treatmentfacilities. This section includes future appointments and future orders which are active, pending or scheduled. Future Appointments This section includes appointments that were scheduled to occur 6 months from the date of the Encounter, up to a maximum of 20 appointments. The data comes from all [place] treatment facilities. Appointment Date/Time Appointment Type Appointme nt Facility Name Jul 13, 2024 08:15 AM AMBULATORY - NONE [facility] Active, Pending, and Scheduled Orders This [...] Chemi stry Order URINALYSIS URINE WC ONCE [facility] Jun 12, 2024 12:00 AM Laboratory - Chemi stry Order BNP PLASMA SP ONCE [facility] Jun 21, 2024 05:45 PM Laboratory - Blood Bank Order TYPE & SCREEN - LAB BLOOD [facility] Jul 03, 2024 12:00 AM Laboratory - Blood Bank Order TYPE & SCREEN - LAB BLOOD [facility] Jul 16, 2024 12:00 AM Laboratory - Chemi stry Order CBC BLOOD SP ONCE [facility] Jul 17, 2024 12:00 AM Laboratory - Chemi stry Order BASIC METABOLIC PANEL+MG PLASMA SP ONCE [facility] Lab Results: +/- 30 days of the encounter This section includes the Chemistry and Hematology Lab Results on record with [place] for the patient. Radiology Reports and Pathology Reports are provided separately, in subsequent sections. Lab Results This section contains the Chemistry/Hematology Results that were resulted 30 days before or 30 daysafter the date of the Encounter. Date/Time Source Result Type Result - Unit Interpretation Reference Range Comment Jul 10, 2024 07:16 AM [facility] PHOSPHORUS Specimen Type: PLASMA No comment entered. Ordering Provider: JUANCARLOS ECHOLS S Report Released Date/Time: Jul 09, 2024 12:23 PM Reporting Lab: [facility] [address] Performing Lab: [facility] [address] PHOSPHORUS 3.0 mg/dL 2.3-4.3 Jul 10, 2024 07:16 AM [facility] BASIC METABOLIC PANEL+MG Specimen Type: PLASMA No comment entered. Ordering Provider: JUANCARLOS ECHOLS S Report Released Date/Time: Jul 09, 2024 12:23 PM Reporting Lab: [facility] [address] Performing Lab: [facility] [address] CREATININE 0.7 mg/dL 0.7-1.2 UREA NITROGEN 27 mg/dL H 8-26 GLUCOSE 104 mg/dL H 70-100 SODIUM 133 mmol/L L 136-145 POTASSIUM 4.3 mmol/L 3.5-5.1 CHLORIDE 102 mmol/L 98-107 CO2 19 mmol/L L 22-29 CALCIUM 10.1 mg/dL 8.4-10.2 MAGNESIUM 1.9 mg/dL 1.6-2.6 ANION GAP 12 mmol/L 5-15 .CREAT EGFR(CKD-EPI) >90 >60 Jul 10, 2024 07:15 AM [facility] CBC Specimen Type: BLOOD No comment entered. Ordering Provider: JUANCARLOS ECHOLS Report Released Date/Time: Jul 09, 2024 12:23 PM Reporting Lab: [facility] [address] Performing Lab: [facility] [address] WBC 18.8 H 4.0-11.0 RBC 5.08 4.60-6.20 HGB 15.9 g/dL 13.5-17.9 HCT 46.8 41.0-54.0 MCV 92.1 fL 80.0-100.0 MCH 31.3 pg 27.0-33.0 MCHC 34.0 g/dL 32.0-37.5 PLT 479 H 150-400 MPV 10.2 fL 9.1-13.0 RDW 13.7 11.5-14.5 Jul 09, 2024 07:08 AM [facility] CBC Specimen Type: BLOOD No comment entered. Ordering Provider: QUYNH WEISS AV Report Released Date/Time: Jul 08, 2024 06:18 PM Reporting Lab: [facility] [address] Performing Lab: [facility] [address] WBC 15.3 H 4.0-11.0 RBC 4.91 4.60-6.20 HGB 15.1 g/dL 13.5-17.9 HCT 45.7 41.0-54.0 MCV 93.1 fL 80.0-100.0 MCH 30.8 pg 27.0-33.0 MCHC 33.0 g/dL 32.0-37.5 PLT 443 H 150-400 MPV 10.0 fL 9.1-13.0 RDW 13.5 11.5-14.5 Jul 08, 2024 10:50 AM [facility] URINALYSIS Specimen Type: URINE No comment entered. Ordering Provider: KATELYNN PERSON Report Released Date/Time: Jul 08, 2024 08:41 AM Reporting Lab: [facility] [address] Performing Lab: [facility] [address] URINE COLOR YELLOW SPECIFIC GRAVITY >1.050 H [...] NEGATIVE NEGATIVE Jul 08, 2024 09:54 AM [facility] CBC Specimen Type: BLOOD Comment: Specimen received in Lab at: 0952 Ordering Provider: JUANCARLOS ECHOLS Report Released Date/Time: Jul 07, 2024 04:49 PM Reporting Lab: [facility] [address] Performing Lab: [facility] [address] WBC 17.5 H 4.0-11.0 RBC 4.88 4.60-6.20 HGB 14.9 g/dL 13.5-17.9 HCT 45.7 41.0-54.0 MCV 93.6 fL 80.0-100.0 MCH 30.5 pg 27.0-33.0 MCHC 32.6 g/dL 32.0-37.5 PLT 472 H 150-400 MPV 10.2 fL 9.1-13.0 RDW 13.7 11.5-14.5 Jul 08, 2024 09:54 AM [facility] PHOSPHORUS Specimen Type: PLASMA Comment: Specimen received in Lab at: 0952 Ordering Provider: BALAJADIA,MAR IA S Report Released Date/Time: Jul 07, 2024 04:49 PM Reporting Lab: [facility] [address] Performing Lab: [facility] [address] PHOSPHORUS 2.6 mg/dL 2.3-4.3 Jul 08, 2024 09:54 AM [facility] BASIC METABOLIC PANEL+MG Specimen Type: PLASMA Comment: Specimen received in Lab at: 0952 Ordering Provider: JUANCARLOS ECHOLS S Report Released Date/Time: Jul 07, 2024 04:49 PM Reporting Lab: [facility] [address] Performing Lab: [facility] [address] CREATININE 0.9 mg/dL 0.7-1.2 UREA NITROGEN 26 mg/dL 8-26 GLUCOSE 128 mg/dL H 70-100 SODIUM 134 mmol/L L 136-145 POTASSIUM 3.4 mmol/L L 3.5-5.1 CHLORIDE 100 mmol/L 98-107 CO2 24 mmol/L 22-29 CALCIUM 9.8 mg/dL 8.4-10.2 MAGNESIUM 1.8 mg/dL 1.6-2.6 ANION GAP 10 mmol/L 5-15 .CREAT EGFR(CKD-EPI) >90 >60 Jul 07, 2024 02:00 PM [facility] C DIFF PANEL Specimen Type: FECES No comment entered. Ordering Provider: JEVON ZAZUETA Report Released Date/Time: Jul 07, 2024 12:26 PM Reporting Lab: [facility] [address] Performing Lab: [facility] [address] C DIFF TOX B GENE PCR NEGATIVE Negative Jul 07, 2024 07:41 AM [facility] PHOSPHORUS Specimen Type: PLASMA No comment entered. Ordering Provider: JEVON ZAZUETA Report Released Date/Time: Jul 06, 2024 03:44 PM Reporting Lab: [facility] [address] Performing Lab: [facility] [address] PHOSPHORUS 3.1 mg/dL 2.3-4.3 Jul 07, 2024 07:41 AM [facility] BASIC METABOLIC PANEL+MG Specimen Type: PLASMA No comment entered. Ordering Provider: JEVON ZAZUETA Report Released Date/Time: Jul 06, 2024 03:44 PM Reporting Lab: [facility] [address] Performing Lab: [facility] [address] CREATININE 0.9 mg/dL 0.7-1.2 UREA NITROGEN 20 mg/dL 8-26 GLUCOSE 157 mg/dL H 70-100 SODIUM 136 mmol/L 136-145 POTASSIUM 3.7 mmol/L 3.5-5.1 CHLORIDE 102 mmol/L 98-107 CO2 21 mmol/L L 22-29 CALCIUM 9.8 mg/dL 8.4-10.2 MAGNESIUM 1.9 mg/dL 1.6-2.6 ANION GAP 13 mmol/L 5-15 .CREAT EGFR(CKD-EPI) >90 >60 Jul 07, 2024 07:40 AM [facility] CBC Specimen Type: BLOOD No comment entered. Ordering Provider: JEVON ZAZUETA Report Released Date/Time: Jul 06, 2024 03:44 PM Reporting Lab: [facility] [address] Performing Lab: [facility] [address] WBC 21.2 H 4.0-11.0 RBC 5.09 4.60-6.20 HGB 15.9 g/dL 13.5-17.9 HCT 48.3 41.0-54.0 MCV 94.9 fL 80.0-100.0 MCH 31.2 pg 27.0-33.0 MCHC 32.9 g/dL 32.0-37.5 PLT 500 H 150-400 MPV 10.3 fL 9.1-13.0 RDW 13.6 11.5-14.5 Jul 06, 2024 07:21 AM [facility] CBC Specimen Type: BLOOD No comment entered. Ordering Provider: JEVON ZAZUETA Report Released Date/Time: Jul 05, 2024 01:22 PM Reporting Lab: [facility] [address] Performing Lab: [facility] [address] WBC 18.0 H 4.0-11.0 RBC 4.83 4.60-6.20 HGB 14.6 g/dL 13.5-17.9 HCT 45.5 41.0-54.0 MCV 94.2 fL 80.0-100.0 MCH 30.2 pg 27.0-33.0 MCHC 32.1 g/dL 32.0-37.5 PLT 368 150-400 MPV 10.4 fL 9.1-13.0 RDW 13.6 11.5-14.5 Jul 06, 2024 07:21 AM [facility] PHOSPHORUS Specimen Type: PLASMA No comment entered. Ordering Provider: JEVON ZAZUETA Report Released Date/Time: Jul 05, 2024 01:22 PM Reporting Lab: [facility] [address] Performing Lab: [facility] [address] PHOSPHORUS 3.6 mg/dL 2.3-4.3 Jul 06, 2024 07:21 AM [facility] BASIC METABOLIC PANEL+MG Specimen Type: PLASMA No comment entered. Ordering Provider: JEVON ZAZUETA Report Released Date/Time: Jul 05, 2024 01:22 PM Reporting Lab: [facility] [address] Performing Lab: [facility] [address] CREATININE 0.7 mg/dL 0.7-1.2 UREA NITROGEN 12 mg/dL 8-26 GLUCOSE 108 mg/dL H 70-100 SODIUM 138 mmol/L 136-145 POTASSIUM 3.4 mmol/L L 3.5-5.1 CHLORIDE 104 mmol/L 98-107 CO2 20 mmol/L L 22-29 CALCIUM 9.3 mg/dL 8.4-10.2 MAGNESIUM 1.9 mg/dL 1.6-2.6 ANION GAP 14 mmol/L 5-15 .CREAT EGFR(CKD-EPI) >90 >60 Jul 05, 2024 07:17 AM [facility] MAGNESIUM Specimen Type: PLASMA No comment entered. Ordering Provider: JUANCARLOS ECHOLS S Report Released Date/Time: Jul 04, 2024 09:39 AM Reporting Lab: [facility] [address] Performing Lab: [facility] [address] MAGNESIUM 2.0 mg/dL 1.6-2.6 Jul 05, 2024 07:17 AM [facility] PHOSPHORUS Specimen Type: PLASMA No comment entered. Ordering Provider: JUANCARLOS ECHOLS S Report Released Date/Time: Jul 04, 2024 09:39 AM Reporting Lab: [facility] [address] Performing Lab: [facility] [address] PHOSPHORUS 2.0 mg/dL L 2.3-4.3 Jul 05, 2024 07:17 AM [facility] BASIC METABOLIC PANEL+MG Specimen Type: PLASMA No comment entered. Ordering Provider: JUANCARLOS ECHOLS S Report Released Date/Time: Jul 04, 2024 09:39 AM Reporting Lab: [facility] [address] Performing Lab: [facility] [address] CREATININE 0.7 mg/dL 0.7-1.2 UREA NITROGEN 12 mg/dL 8-26 GLUCOSE 84 mg/dL 70-100 SODIUM 135 mmol/L L 136-145 POTASSIUM 3.8 mmol/L 3.5-5.1 CHLORIDE 104 mmol/L 98-107 CO2 24 mmol/L 22-29 CALCIUM 9.3 mg/dL 8.4-10.2 MAGNESIUM 2.0 mg/dL 1.6-2.6 ANION GAP 7 mmol/L 5-15 .CREAT EGFR(CKD-EPI) >90 >60 Jul 05, 2024 07:16 AM [facility] CBC Specimen Type: BLOOD No comment entered. Ordering Provider: JUANCARLOS ECHOLS S Report Released Date/Time: Jul 04, 2024 09:39 AM Reporting Lab: [facility] [address] Performing Lab: [facility] [address] WBC 18.3 H 4.0-11.0 RBC 4.49 L 4.60-6.20 HGB 14.1 g/dL 13.5-17.9 HCT 43.4 41.0-54.0 MCV 96.7 fL 80.0-100.0 MCH 31.4 pg 27.0-33.0 MCHC 32.5 g/dL 32.0-37.5 PLT 317 150-400 MPV 10.0 fL 9.1-13.0 RDW 13.9 11.5-14.5 Jul 04, 2024 07:17 AM [facility] BASIC METABOLIC PANEL+MG Specimen Type: PLASMA No comment entered. Ordering Provider: GABINO CAMERON Report Released Date/Time: Jul 03, 2024 06:31 PM Reporting Lab: [facility] [address] Performing Lab: [facility] [address] CREATININE 0.7 mg/dL 0.7-1.2 UREA NITROGEN 16 mg/dL 8-26 GLUCOSE 129 mg/dL H 70-100 SODIUM 137 mmol/L 136-145 POTASSIUM 3.7 mmol/L 3.5-5.1 CHLORIDE 107 mmol/L 98-107 CO2 22 mmol/L 22-29 CALCIUM 9.0 mg/dL 8.4-10.2 MAGNESIUM 1.9 mg/dL 1.6-2.6 ANION GAP 8 mmol/L 5-15 .CREAT EGFR(CKD-EPI) >90 >60 Jul 04, 2024 07:17 AM [facility] PHOSPHORUS Specimen Type: PLASMA No comment entered. Ordering Provider: GABINO CAMERON Report Released Date/Time: Jul 03, 2024 06:31 PM Reporting Lab: [facility] [address] Performing Lab: [facility] [address] PHOSPHORUS 2.8 mg/dL 2.3-4.3 Jul 04, 2024 07:16 AM [facility] CBC Specimen Type: BLOOD No comment entered. Ordering Provider: GABINO CAMERON Report Released Date/Time: Jul 03, 2024 06:31 PM Reporting Lab: [facility] [address] Performing Lab: [facility] [address] WBC 20.6 H 4.0-11.0 RBC 4.63 4.60-6.20 HGB 14.2 g/dL 13.5-17.9 HCT 43.4 41.0-54.0 MCV 93.7 fL 80.0-100.0 MCH 30.7 pg 27.0-33.0 MCHC 32.7 g/dL 32.0-37.5 PLT 329 150-400 MPV 10.4 fL 9.1-13.0 RDW 13.8 11.5-14.5 Jul 04, 2024 07:16 AM [facility] CBC & DIFF Specimen Type: BLOOD Comment: Manual Differential Performed Ordering Provider: GABINO CAMERON Report Released Date/Time: Jul 03, 2024 06:31 PM Reporting Lab: [facility] [address] Performing Lab: [facility] [address] WBC 20.6 H 4.0-11.0 RBC 4.63 4.60-6.20 [...] MORPHOLOGY PRESENT Jul 04, 2024 07:15 AM [facility] BNP Specimen Type: PLASMA No comment entered. Ordering Provider: GABINO CAMERON Report Released Date/Time: Jul 03, 2024 06:31 PM Reporting Lab: [facility] [address] Performing Lab: [facility] [address] BNP 292 pg/mL H <99 Jul 03, 2024 10:32 PM [facility] FINGERSTICK GLUCOSE Specimen Type: BLOOD Comment: Save Result Nurse Notified Ordering Provider: KATELYNN PERSON Report Released Date/Time: Jul 03, 2024 10:50 PM Reporting Lab: [facility] [address] Performing Lab: [facility] [address] FINGERSTICK GLUCOSE 126 mg/dL H 70-100 Jul 03, 2024 05:33 PM [facility] FINGERSTICK GLUCOSE Specimen Type: BLOOD Comment: Save Result Nurse Notified Ordering Provider: KATELYNN PERSON Report Released Date/Time: Jul 03, 2024 05:46 PM Reporting Lab: [facility] [address] Performing Lab: [facility] [address] FINGERSTICK GLUCOSE 141 mg/dL H 70-100 Jul 03, 2024 02:31 PM [facility] POC ABG/ELECTROLYTES Specimen Type: ARTERIAL BLOOD Comment: FIO2 = 97% Patient Temp: 36.0 C Sample Type = ARTERIAL Ordering Provider: MAZIN ARREDONDO Report Released Date/Time: Jul 03, 2024 01:48 PM Reporting Lab: [facility] [address] Performing Lab: [facility] [address] POC PH 7.387 7.35-7.45 POC PCO2 34.4 [...] H 80.0-105.0 Jul 03, 2024 01:05 PM [facility] POC ABG/ELECTROLYTES Specimen Type: ARTERIAL BLOOD Comment: FIO2 = 53% Patient Temp: 36.2 C Sample Type = ARTERIAL Ordering Provider: MAZIN ARREDONDO Report Released Date/Time: Jul 03, 2024 01:48 PM Reporting Lab: [facility] [address] Performing Lab: [facility] [address] POC PH 7.280 L 7.35-7.45 POC PCO2 [...] mm[Hg] 80.0-105.0 Jul 03, 2024 06:15 AM [facility] URINALYSIS Specimen Type: URINE No comment entered. Ordering Provider: MARYBETH POWELL Report Released Date/Time: Jun 12, 2024 04:01 PM Reporting Lab: [facility] [address] Performing Lab: [facility] [address] URINE COLOR YELLOW SPECIFIC GRAVITY 1.031 1.003-1.03 [...] 250 NEGATIVE Jul 03, 2024 06:13 AM [facility] CBC Specimen Type: BLOOD No comment entered. Ordering Provider: MARYBETH POWELL Report Released Date/Time: Jun 12, 2024 03:59 PM Reporting Lab: [facility] [address] Performing Lab: [facility] [address] WBC 15.8 H 4.0-11.0 RBC 5.11 4.60-6.20 HGB 16.1 g/dL 13.5-17.9 HCT 49.1 41.0-54.0 MCV 96.1 fL 80.0-100.0 MCH 31.5 pg 27.0-33.0 MCHC 32.8 g/dL 32.0-37.5 PLT 357 150-400 MPV 9.8 fL 9.1-13.0 RDW 13.7 11.5-14.5 Jun 24, 2024 09:50 AM [facility] BASIC METABOLIC PANEL+MG Specimen Type: PLASMA Comment: Specimen received in Lab at: 0948 Ordering Provider: JEVON ZAZUETA Report Released Date/Time: Jun 23, 2024 06:07 PM Reporting Lab: [facility] [address] Performing Lab: [facility] [address] CREATININE 0.8 mg/dL 0.7-1.2 UREA NITROGEN 13 mg/dL 8-26 GLUCOSE 135 mg/dL H 70-100 SODIUM 135 mmol/L L 136-145 POTASSIUM 3.6 mmol/L 3.5-5.1 CHLORIDE 103 mmol/L 98-107 CO2 24 mmol/L 22-29 CALCIUM 9.2 mg/dL 8.4-10.2 MAGNESIUM 1.9 mg/dL 1.6-2.6 ANION GAP 8 mmol/L 5-15 .CREAT EGFR(CKD-EPI) >90 >60 Jun 24, 2024 09:50 AM [facility] CBC Specimen Type: BLOOD Comment: Specimen received in Lab at: 0948 Ordering Provider: JEVON ZAZUETA Report Released Date/Time: Jun 23, 2024 06:07 PM Reporting Lab: [facility] [address] Performing Lab: [facility] [address] WBC 15.5 H 4.0-11.0 RBC 4.93 4.60-6.20 HGB 15.2 g/dL 13.5-17.9 HCT 46.5 41.0-54.0 MCV 94.3 fL 80.0-100.0 MCH 30.8 pg 27.0-33.0 MCHC 32.7 g/dL 32.0-37.5 PLT 223 150-400 MPV 11.4 fL 9.1-13.0 RDW 13.9 11.5-14.5 Jun 23, 2024 07:52 AM [facility] COMPREHENSIVE METABOLIC PANEL+MG Specimen Type: PLASMA No comment entered. Ordering Provider: JEVON ZAZUETA Report Released Date/Time: Jun 22, 2024 05:51 PM Reporting Lab: [facility] [address] Performing Lab: [facility] [address] CREATININE 0.7 mg/dL 0.7-1.2 UREA NITROGEN 16 [...] >90 >60 Jun 23, 2024 07:52 AM [facility] CBC & DIFF Specimen Type: BLOOD Comment: Automated Differential Performed Ordering Provider: JEVON ZAZUETA Report Released Date/Time: Jun 22, 2024 05:51 PM Reporting Lab: [facility] [address] Performing Lab: [facility] [address] WBC 14.9 H 4.0-11.0 RBC 5.09 4.60-6.20 [...] 0.1 0.0-0.1 Jun 22, 2024 06:10 PM [facility] COMPREHENSIVE METABOLIC PANEL+MG Specimen Type: PLASMA No comment entered. Ordering Provider: JEVON ZAZUETA Report Released Date/Time: Jun 22, 2024 05:51 PM Reporting Lab: [facility] [address] Performing Lab: [facility] [address] CREATININE 0.7 mg/dL 0.7-1.2 UREA NITROGEN 17 [...] >90 >60 Jun 22, 2024 06:10 PM [facility] CBC Specimen Type: BLOOD No comment entered. Ordering Provider: JEVON ZAZUETA Report Released Date/Time: Jun 22, 2024 05:51 PM Reporting Lab: [facility] [address] Performing Lab: [facility] [address] WBC 16.9 H 4.0-11.0 RBC 5.28 4.60-6.20 HGB 16.9 g/dL 13.5-17.9 HCT 50.4 41.0-54.0 MCV 95.5 fL 80.0-100.0 MCH 32.0 pg 27.0-33.0 MCHC 33.5 g/dL 32.0-37.5 PLT 223 150-400 MPV 10.9 fL 9.1-13.0 RDW 14.0 11.5-14.5 Jun 21, 2024 06:48 PM [facility] URINALYSIS Specimen Type: URINE No comment entered. Ordering Provider: DELIA MARTINEZ Report Released Date/Time: Jun 21, 2024 05:45 PM Reporting Lab: [facility] [address] Performing Lab: [facility] [address] URINE COLOR YELLOW SPECIFIC GRAVITY 1.041 H [...] 500 NEGATIVE Jun 21, 2024 05:34 PM [facility] POC CREATININE Specimen Type: BLOOD No comment entered. Ordering Provider: DELIA MARTINEZ Report Released Date/Time: Jun 21, 2024 06:07 PM Reporting Lab: [facility] [address] Performing Lab: [facility] [address] POC CREATININE 1.1 mg/dL 0.6-1.3 Jun 21, 2024 05:30 PM [facility] POC ABG/LACTATE Specimen Type: VENOUS BLOOD No comment entered. Ordering Provider: DELIA MARTINEZ Report Released Date/Time: Jun 21, 2024 06:07 PM Reporting Lab: [facility] [address] Performing Lab: [facility] [address] POC PH 7.470 H 7.31-7.41 POC PCO2 31.2 mm[Hg] L 41.00-51 .0 0 POC PO2 46 mm[Hg] H 35.0-40.0 POC TCO2 24 mmol/L 24.0-29.0 POC HCO3 22.7 mmol/L L 23.0-28.0 POC BE ECT -1 mmol/L POC SO2 85 H 70-75 POC LACTATE 1.85 mmol/L 0.90-1.70 Jun 21, 2024 05:24 PM [facility] PROTHROMBIN TIME/INR Specimen Type: PLASMA No comment entered. Ordering Provider: DELIA MARTINEZ Report Released Date/Time: Jun 21, 2024 05:30 PM Reporting Lab: [facility] [address] Performing Lab: [facility] [address] .INR 1.2 H 0.8-1.1 .PT 13.9 s H 9.4-12.5 Jun 21, 2024 05:24 PM [facility] LIPASE Specimen Type: PLASMA No comment entered. Ordering Provider: DELIA MARTINEZ Report Released Date/Time: Jun 21, 2024 05:30 PM Reporting Lab: [facility] [address] Performing Lab: [facility] [address] LIPASE 32 U/L <60 Jun 21, 2024 05:24 PM [facility] EXTRA GOLD GEL TUBE Specimen Type: SERUM No comment entered. Ordering Provider: DELIA MARTINEZ Report Released Date/Time: Jun 21, 2024 05:41 PM Reporting Lab: [facility] [address] Performing Lab: [facility] [address] EXTRA GOLD GEL TUBE RECEIVED Jun 21, 2024 05:24 PM [facility] COMPREHENSIVE METABOLIC PANEL+MG Specimen Type: PLASMA No comment entered. Ordering Provider: DELIA MARTINEZ Report Released Date/Time: Jun 21, 2024 05:30 PM Reporting Lab: [facility] [address] Performing Lab: [facility] [address] CREATININE 0.9 mg/dL 0.7-1.2 UREA NITROGEN 29 [...] mg/dL <0.5 Jun 21, 2024 05:24 PM [facility] CBC & DIFF Specimen Type: BLOOD Comment: Manual Differential Performed Ordering Provider: DELIA MARTINEZ Report Released Date/Time: Jun 21, 2024 05:30 PM Reporting Lab: [facility] [phone] Performing Lab: [facility] [address] WBC 21.3 H 4.0-11.0 RBC 5.48 4.60-6.20 [...] MORPHOLOGY PRESENT Jun 08, 2024 10:59 AM [facility] PROTHROMBIN TIME/INR Specimen Type: PLASMA No comment entered. Ordering Provider: MARYBETH POWELL Report Released Date/Time: May 28, 2024 09:02 AM Reporting Lab: [facility] [address] Performing Lab: [facility] [address] .INR 1.0 0.8-1.1 .PT 11.8 s 9.4-12.5 Jun 08, 2024 10:59 AM [facility] HEMOGLOBIN A1C Specimen Type: BLOOD Comment: Values [...] May 28, 2024 09:02 AM Reporting Lab: [facility] [phone] Performing Lab: [facility] [address] HEMOGLOBIN A1C 4.9 4.0-6.0 Jun 08, 2024 10:59 AM [facility] CBC Specimen Type: BLOOD No comment entered. Ordering Provider: MARYBETH POWELL Report Released Date/Time: May 28, 2024 09:02 AM Reporting Lab: [facility] [phone] Performing Lab: [facility] [address] WBC 16.1 H 4.0-11.0 RBC 5.02 4.60-6.20 HGB 16.0 g/dL 13.5-17.9 HCT 47.1 41.0-54.0 MCV 93.8 fL 80.0-100.0 MCH 31.9 pg 27.0-33.0 MCHC 34.0 g/dL 32.0-37.5 PLT 228 150-400 MPV 10.3 fL 9.1-13.0 RDW 14.6 H 11.5-14.5 Jun 08, 2024 10:59 AM [facility] BASIC METABOLIC PANEL+MG Specimen Type: PLASMA No comment entered. Ordering Provider: MARYBETH POWELL Report Released Date/Time: May 28, 2024 09:02 AM Reporting Lab: [facility] [address] Performing Lab: [facility] [address] CREATININE 0.9 mg/dL 0.7-1.2 UREA NITROGEN 15 [...] Height Weight Body Mass Index Source Jul 06, 2024 05:52 PM 97.5 92 132/64 18 96 4 [facility] Jul 06, 2024 01:00 PM 4 [facility] Jul 06, 2024 12:18 PM 136/88 [facility] Jul 06, 2024 12:09 PM 5 [facility] Jul 06, 2024 09:11 AM 97 93 162/80 18 96 5 [facility] Social History: Smoking [...] 15, 2024 08:30 AM [facility] OR [facility] May 06, 2023 11:30 AM [employer] FORMER US[facility] May 06, 2023 11:30 AM [employer] QUIT [...] VIEWS PA A ND LAT: FLACA WEAVER [id number] M Exm Date: JUL 08, 2024@10:09 Req Phys: KATELYNN PERSON Pat Loc: 2KG07-08-2024@11:49 Img Loc: MAIN X-RAY Service: [facility] [place] [address] (Case 24 COMPLETE) CHEST 2 VIEWS PA AND LAT (RAD Detailed) CPT:05066 Reason for Study: Uptrending WBC, POD 5 [...] 08, 2024 Date Verified: JUL 08, 2024 Cell Plasterer E-Sig: Report: CHEST 2 VIEWS PA AND LAT HISTORY: Uptrending WBC, POD 5 COMPARISON: CT chest 11/12/2022 TECHNIQUE: Frontal and lateral views of the chest, submitted to the [place] National Teleradiology Program (NTP) for interpretation. FINDINGS: Lungs: Clear. No focal consolidation. No pulmonary edema. Pleura: No pleural effusion or pneumothorax. Mediastinum: Normal size and contour. Bones: Unremarkable. Impression: No acute cardiopulmonary disease. READING PHYSICIAN: Sarbjit Vaughn M.D. -[phone] 07/08/2024 12:[address] [facility] National Teleradiology Program [phone] (For Medical Practitioner Use Only) Attention Patients / Veterans: If you have questions or concerns about these test results, please contact your ordering provider or primary care team. Primary Interpreting Staff: RADIOLOGY,OUTSIDE SERVICE, Staff Physician / RADIOLOGY,OUTSIDE SERVICE [facility] Jul 08, 2024 10:[address] (AP) ABDOMEN/PE LVIS W CONTRAST: FLACA WEAVER [id number] -1950 M Ex Date: JUL 08, 2024@10:00 Req Phys: KATELYNN PERSON Loc: 2KG07-08-2024@12:07 Img Loc: CT IMAGING Service: [facility] [place] [address] (Case 22 COMPLETE) CT (AP) ABDOMEN/PELVIS W CONTRAST(CT Detailed) CPT:91361 Contrast Media : Non-ionic Iodinated Reason for [...] information of the responsible staff physician. Ramsey aMurice LAST 3: Collection DT Specimen Test Name Result Units Ref Range 07/07/2024 05:30 PLASMA CREATININE 0.9 mg/dL 0.7 - 1.2 07/06/2024 05:30 PLASMA CREATININE 0.7 mg/dL 0.7 - 1.2 07/05/2024 05:30 PLASMA CREATININE 0.7 mg/dL 0.7 - 1.2 07/07/2024 05:30 PLASMA .CREAT EGFR(CKD-E >90 Ref: >=60 07/06/2024 05:30 PLASMA .CREAT EGFR(CKD-E >90 Ref: >=60 07/05/2024 05:30 PLASMA .CREAT EGFR(CKD-E >90 Ref: >=60 Allergies: ([place] only) TERAZOSIN (Mar 13, 2015) Report Status: Verified Date Reported: JUL 08, 2024 Date Verified: JUL 08, 2024 Cell Plasterer E-Sig: Report: CT (AP) ABDOMEN/PELVIS W CONTRAST HISTORY: POD 5, Uptrending WBC - Concern for Abscess/other infection COMPARISON: June 21, 2024 TECHNIQUE: CT abdomen and pelvis was performed after intravenous contrast. Axial, sagittal and coronal reformatted images. The study was performed at the local [place] facility and images were sent to the [place] National Teleradiology Program (NTP) for interpretation. Number [...] as noted above READING PHYSICIAN: Celestino Blanc -[phone] 07/08/2024 13:04 [facility] National Teleradiology Program [phone] (For Medical Practitioner Use Only) Attention Patients / Veterans: If you have questions or concerns about these test results, please contact your ordering provider or primary care team. Primary Interpreting Staff: RADIOLOGY,OUTSIDE SERVICE, Staff Physician / RADIOLOGY,OUTSIDE SERVICE [facility] Jun 22, 2024 11:49 AM ABSCESS DRAIN PLAC EMENT PERITONEAL (P): FLACA WEAVER [id number] -1950 M Exm Date: JUN 22, 2024@11:49 Req Phys: ANGELA HOLDEN Loc: [facility]06-22-2024@17:14 Img Loc: INTERVENTIONAL RADIOLOGY Service: [facility] [place] [address] (Case [id number] COMPLETE) IR PERITONEAL/RETROPERITONEAL PER(ANI Detailed) CPT:09118 Reason for Study: diverticulitis with abscess (Case 3570 COMPLETE) IR MOD SEDATION 10-22 MIN (ANI Detailed) CPT:25180 Clinical History: IS NOT under investigation for COVID-19 or is COVID-19 negative 73 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 please place abscess drain. Contact number for responsible provider who can be reached for any questions or notifications of critical findings: [phone] n/a LAST CREATININE 0.9 (06/21/24) Report Status: Verified Date Reported: JUN 22, 2024 Date Verified: JUN 22, 2024 Cell Plasterer E-Sig:/ES/LISA PENDLETON MD Report: PROCEDURES: Placement of [...] obtained. A pre-procedural Time-Out was performed per [facility] policy. The patient was placed in the supine position on the CT table. Preprocedural scan performed. The suprapubic region/lower abdominal wall was sterilely prepped and draped in the usual fashion.1% lidocaine without epinephrine was used for local anesthesia. Using real-time CT fluoroscopy, a 5 Slovak Copytele centesis catheter was advanced into the collection in the left pelvis. A wire was coiled in the collection. The tract into the collection was dilated to accommodate the 12 Slovak locking pigtail drainage catheter. There was return [...] Staff: LISA PENDLETON MD, RADIOLOGIST (Cell Plasterer) /JRLISA [facility] Jun 22, 2024 11:[address] NEEDLE PLACEMEN T (P): FLACA WEAVER [id number] -1950 M Exm Date: JUN 22, 2024@11:48 Req Phys: ANGELA HOLDEN Loc: [facility]/06-22-2024@17:14 Img Loc: CT IMAGING Service: [place] [address] (Case [id number] COMPLETE) CT SCAN FOR NEEDLE PLACEMENT (CT Detailed) CPT:77811 Reason for Study: l pelvic abscess drain Clinical History: Report Status: Verified Date Reported: JUN 22, 2024 Date Verified: JUN 22, 2024 Cell Plasterer E-Sig:/ES/LISA PENDLETON MD Report: PROCEDURES: Placement of [...] obtained. A pre-procedural Time-Out was performed per [facility] policy. The patient was placed in the supine position on the CT table. Preprocedural scan performed. The suprapubic region/lower abdominal wall was sterilely prepped and draped in the usual fashion.1% lidocaine without epinephrine was used for local anesthesia. Using real-time CT fluoroscopy, a 5 Slovak TimeBridgeesis catheter was advanced into the collection in the left pelvis. A wire was coiled in the collection. The tract into the collection was dilated to accommodate the 12 Slovak locking pigtail drainage catheter. There was return [...] MD, RADIOLOGIST (Cell Plasterer) /JRT LISA PENDLETON [facility] Jun 21, 2024 06:[address] (AP) ABDOMEN/PE LVIS (P): FLACA WEAVER [id number] -1950 M Exm Date: JUN 21, 2024@18:09 Req Phys: DELIA MARTINEZ Loc: [facility]PT WALK-IN (Re Img Loc: CT IMAGING Service: [place] [address] (Case [id number] COMPLETE) CT (AP) ABDOMEN/PELVIS W CONTRAST(CT Detailed) CPT:07912 Contrast Media : Non-ionic Iodinated Reason for [...] PLASMA .CREAT EGFR(CKD-E >90 Ref: >=60 Allergies: ([place] only) TERAZOSIN (Mar 13, 2015) Defer to [...] 21, 2024 Date Verified: JUN 21, 2024 Cell Plasterer E-Sig:/ALEXI/CARLOS A CUNNINGHAM DO Report: EXAMINATION: CT [...] Interpreting Staff: CARLOS A CUNNINGHAM DO, RADIOLOGIST (Cell Plasterer) /CARLOS A ROWELL [facility] Pathology Reports: [...] COSIGNER: URGENCY: STATUS: COMPLETED $APHDR Reporting Lab: [facility] [CLIA# [id number]] [place] [address] - - - - - - - [...] - PATHOLOGY REPORT Accession No. [id number] - - - - - - - [...] - PATHOLOGY REPORT Accession No. [id number] - - - - - - - [...] Second circumferential surgical margin, en face; E-F: Electro Optics Engineer diverticula; G: Electro Optics Engineer section of mesentery; H: Random telephone services sales representative section of additional adipose tissue [...] Performing Laboratory: Surgical Pathology Report Performed By: [facility] [CLIA# [id number]] [place] [address] $FTR - - - - - - [...] - - FLACA WEAVER STANDARD FORM 515 ID:[id number] SEX:M :1950 AGE: 73 LOC:76450 ADM:Jun DX:DIVERTICULITIS PCP: Jatinder Cabrera /alexi/ EDUARDO PALOMARES MD STAFF PATHOLOGIST Signed: 07/06/2024 10:40 EDUARDO PALOMARES [facility] Jun 22, 2024 01:15 PM LR MICROBIOLOGY RE PORT: Reporting Lab: [facility] [CLIA# [id number]] [place] [address] Accession [UID]: [id number] [[id number]] Received: Jun 22, 2024@13:38 Collection sample: FLUID Collection date: Jun 22, 2024 13:15 Provider: ANGELA HOLDEN Comment on specimen: LLQ ABSCESS, RECEIVED IN ANAEROBIC TRANSPORT VIAL Test(s) ordered: GRAM STAIN.................... completed: Jun 22, 2024 15:03 CULTURE & SUSCEPTIBILITY...... completed: Jun 25, 2024 * BACTERIOLOGY FINAL REPORT => Jun 25, 2024 10:56 TECH CODE: [id number] GRAM STAIN: DIRECT SMEAR of specimen before [...] -=--=--=--=--=--=--=-- Performing Laboratory: Bacteriology Report Performed By: [facility] [CLIA# [id number]] [place] [address] [facility] Jun 22, 2024 01:15 PM LR MICROBIOLOGY RE PORT: Reporting Lab: [facility] [CLIA# [id number]] [address] Accession [UID]: [id number] [[id number]] Received: Jun 22, 2024@13:38 Collection sample: FLUID Collection date: Jun 22, 2024 13:15 Provider: ANGELA HOLDEN Comment on specimen: LLQ ABSCESS, RECEIVED IN ANAEROBIC TRANSPORT VIAL Test(s) ordered: ANAEROBIC CULTURE............. completed: Jun 28, 2024 * BACTERIOLOGY FINAL REPORT => Jun 28, 2024 10:08 TECH CODE: [id number] CULTURE RESULTS: HEAVY GROWTH MIXED ANAEROBES Comment: including the followin+ Bacteroides fragilis 4+ Bacteroides vulgatus 4+ Clostridium innocuum Beta-lactamase negative 4+ Bacteroides caccae 4+ Parvimonas micra 4+ Bacteroides uniformis 4+ Gemella morbillorum 4+ anaerobic small, Gram Positive Rods 4+ Bacteroides thetaiotaomicron Standard workup is now complete. Bacteriology Remark(s): THIS REPORT IS FINAL =--=--=--=--=--=--=--=--=--= --=--=--=--=--=--=--=--=--=- -=--=--=--=--=--=--=-- Performing Laboratory: Bacteriology Report Performed By: [facility] [CLIA# [id number]] [place] [address] [facility] Jun 21, 2024 06:12 PM LR MICROBIOLOGY RE PORT: Reporting Lab: [facility] [CLIA# [id number]] [place] [address] Accession [UID]: [id number] [[id number]] Received: Jun 21, 2024@18:12 Collection sample: BLOOD [...] -=--=--=--=--=--=--=-- Performing Laboratory: Bacteriology Report Performed By: [facility] [CLIA# [id number]] [place] [address] [facility] Jun 21, 2024 06:11 PM LR MICROBIOLOGY RE PORT: Reporting Lab: [facility] [CLIA# [id number]] [place] [address] Accession [UID]: [id number] [[id number]] Received: Jun 21, 2024@18:11 Collection sample: BLOOD [...] -=--=--=--=--=--=--=-- Performing Laboratory: Bacteriology Report Performed By: [facility] [CLIA# [id number]] [place] [address] [facility] Jun 08, 2024 11:00 AM LR MICROBIOLOGY RE PORT: Reporting Lab: [facility] [CLIA# [id number]] [place] [address] Accession [UID]: [id number] [[id number]] Received: Jun 08, 2024@11:00 Collection sample: URINE Collection date: Jun 08, 2024 11:00 Provider: MARYBETH POWELL Comment on specimen: urine Test(s) ordered: CULTURE & SUSCEPTIBILITY...... completed: Jun 09, 2024 * BACTERIOLOGY FINAL REPORT => Jun 09, 2024 19:12 TECH CODE: [id number] CULTURE RESULTS: ESCHERICHIA COLI - Quantity: >100,000 [...] -=--=--=--=--=--=--=-- Performing Laboratory: Bacteriology Report Performed By: [facility] [CLIA# [id number]] [address] [place] [address] [facility]
--- OUTSIDE RECORDS SUMMARY | 2024-07-16 07:17 | XMS_ITS | Encounter Summary ---
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 Date/Time Encounter Type Encounter Description Reason Provider Source Jul 06, 2024 01:23 PM [facility] IP/OBS MODERATE 35 GENERAL INTERNAL MEDICINE ICD-10-CM R00.1 Bradycardia, unspecified JEVON ZAZUETA [facility] Encounter Template Text not used by [place] Assessments - Encounter Diagnoses This section includes the primary and secondary diagnoses documented for the Encounter. Date/Time Primary/Secondary Diagnosis Diagnosis Name Provider Source Jul 06, 2024 01:39 PM PRIMARY Bradycardia, unspecified JEVON ZAZUETA [facility] Jul 06, 2024 01:39 PM SECONDARY Athscl heart disease of [place] coronary artery w/o ang pctrs ZAZUETA,JEVON [facility] Jul 06, 2024 01:39 PM SECONDARY Chronic systolic (congestive) heart failure JEVON ZAZUETA [facility] Jul 06, 2024 01:39 PM SECONDARY Elevated white blood cell count, unspecified JEVON ZAZUETA [facility] Jul 06, 2024 01:39 PM SECONDARY Essential (primary) hypertension JEVON ZAZUETA [facility] Plan of Treatment: Future Appointments (+ 6 months) and Future Tests (+/- 45 days) The Plan of Treatment section includes future care activities for the patient from all [place] [facility] This section includes future appointments and future orders which are active, pending or scheduled. Future Appointments This section includes appointments that were scheduled to occur 6 months from the date of the Encounter, up to a maximum of 20 appointments. The data comes from all [facility]. Appointment Date/Time Appointment Type Appointme nt Facility Name Jul 13, 2024 08:15 AM AMBULATORY - NONE [facility] Active, Pending, and Scheduled Orders This section includes a listing of several types of active, pending, and scheduled orders, including clinic medications orders, diagnostic test orders, procedure orders and consult orders; where the start date of the order is 45 days before the date of the Encounter or 45 days after the date of theEncounter. The data comes from all [facility]. Test Date/Time Test Type Test Details Facility Name May 28, 2024 12:00 AM Laboratory - Blood Bank Order TYPE & SCREEN - LAB BLOOD SP [facility] Jun 08, 2024 09:57 AM Laboratory - Chemi stry Order URINALYSIS URINE WC ONCE [facility] Jun 12, 2024 12:00 AM Laboratory - Chemi stry Order BNP PLASMA SP ONCE [facility] Jun 21, 2024 05:45 PM Laboratory - Blood Bank Order TYPE & SCREEN - LAB BLOOD [facility] Jul 03, 2024 12:00 AM Laboratory - Blood Bank Order TYPE & SCREEN - LAB BLOOD [facility] Jul 16, 2024 12:00 AM Laboratory - Chemi stry Order CBC BLOOD SP ONCE [facility] Jul 17, 2024 12:00 AM Laboratory - Chemi stry Order BASIC METABOLIC PANEL+MG PLASMA SP ONCE [facility] Lab Results: +/- 30 days [...] Range Comment Jul 10, 2024 07:16 AM [facility] PHOSPHORUS Specimen Type: PLASMA No comment entered. Ordering Provider: JUANCARLOS ECHOLS S Report Released Date/Time: Jul 09, 2024 12:23 PM Reporting Lab: [facility] [address] Performing Lab: [facility] [address] PHOSPHORUS 3.0 mg/dL 2.3-4.3 Jul 10, 2024 07:16 AM [facility] BASIC METABOLIC PANEL+MG Specimen Type: PLASMA No comment entered. Ordering Provider: JUANCARLOS ECHOLS S Report Released Date/Time: Jul 09, 2024 12:23 PM Reporting Lab: [facility] [address] Performing Lab: [facility] [address] CREATININE 0.7 mg/dL 0.7-1.2 UREA NITROGEN 27 mg/dL H 8-26 GLUCOSE 104 mg/dL H 70-100 SODIUM 133 mmol/L L 136-145 POTASSIUM 4.3 mmol/L 3.5-5.1 CHLORIDE 102 mmol/L 98-107 CO2 19 mmol/L L 22-29 CALCIUM 10.1 mg/dL 8.4-10.2 MAGNESIUM 1.9 mg/dL 1.6-2.6 ANION GAP 12 mmol/L 5-15 .CREAT EGFR(CKD-EPI) >90 >60 Jul 10, 2024 07:15 AM [facility] CBC Specimen Type: BLOOD No comment entered. Ordering Provider: JUANCARLOS ECHOLS S Report Released Date/Time: Jul 09, 2024 12:23 PM Reporting Lab: [facility] [address] Performing Lab: [facility] [address] WBC 18.8 H 4.0-11.0 RBC 5.08 4.60-6.20 HGB 15.9 g/dL 13.5-17.9 HCT 46.8 41.0-54.0 MCV 92.1 fL 80.0-100.0 MCH 31.3 pg 27.0-33.0 MCHC 34.0 g/dL 32.0-37.5 PLT 479 H 150-400 MPV 10.2 fL 9.1-13.0 RDW 13.7 11.5-14.5 Jul 09, 2024 07:08 AM [facility] CBC Specimen Type: BLOOD No comment entered. Ordering Provider: QUYNH WEISS Report Released Date/Time: Jul 08, 2024 06:18 PM Reporting Lab: [facility] [address] Performing Lab: [facility] [address] WBC 15.3 H 4.0-11.0 RBC 4.91 4.60-6.20 HGB 15.1 g/dL 13.5-17.9 HCT 45.7 41.0-54.0 MCV 93.1 fL 80.0-100.0 MCH 30.8 pg 27.0-33.0 MCHC 33.0 g/dL 32.0-37.5 PLT 443 H 150-400 MPV 10.0 fL 9.1-13.0 RDW 13.5 11.5-14.5 Jul 08, 2024 10:50 AM [facility] URINALYSIS Specimen Type: URINE No comment entered. Ordering Provider: KATELYNN PERSON Report Released Date/Time: Jul 08, 2024 08:41 AM Reporting Lab: [facility] [address] Performing Lab: [facility] [address] URINE COLOR YELLOW SPECIFIC GRAVITY >1.050 H [...] NEGATIVE NEGATIVE Jul 08, 2024 09:54 AM [facility] CBC Specimen Type: BLOOD Comment: Specimen received in Lab at: 0952 Ordering Provider: JUANCARLOS ECHOLS Report Released Date/Time: Jul 07, 2024 04:49 PM Reporting Lab: [facility] [address] Performing Lab: [facility] [address] WBC 17.5 H 4.0-11.0 RBC 4.88 4.60-6.20 HGB 14.9 g/dL 13.5-17.9 HCT 45.7 41.0-54.0 MCV 93.6 fL 80.0-100.0 MCH 30.5 pg 27.0-33.0 MCHC 32.6 g/dL 32.0-37.5 PLT 472 H 150-400 MPV 10.2 fL 9.1-13.0 RDW 13.7 11.5-14.5 Jul 08, 2024 09:54 AM [facility] PHOSPHORUS Specimen Type: PLASMA Comment: Specimen received in Lab at: 0952 Ordering Provider: JUANCARLOS ECHOLS Report Released Date/Time: Jul 07, 2024 04:49 PM Reporting Lab: [facility] [address] Performing Lab: [facility] [address] PHOSPHORUS 2.6 mg/dL 2.3-4.3 Jul 08, 2024 09:54 AM [facility] BASIC METABOLIC PANEL+MG Specimen Type: PLASMA Comment: Specimen received in Lab at: 0952 Ordering Provider: JUANCARLOS ECHOLS Report Released Date/Time: Jul 07, 2024 04:49 PM Reporting Lab: [facility] [address] Performing Lab: [facility] [address] CREATININE 0.9 mg/dL 0.7-1.2 UREA NITROGEN 26 mg/dL 8-26 GLUCOSE 128 mg/dL H 70-100 SODIUM 134 mmol/L L 136-145 POTASSIUM 3.4 mmol/L L 3.5-5.1 CHLORIDE 100 mmol/L 98-107 CO2 24 mmol/L 22-29 CALCIUM 9.8 mg/dL 8.4-10.2 MAGNESIUM 1.8 mg/dL 1.6-2.6 ANION GAP 10 mmol/L 5-15 .CREAT EGFR(CKD-EPI) >90 >60 Jul 07, 2024 02:00 PM [facility] C DIFF PANEL Specimen Type: FECES No comment entered. Ordering Provider: JEVON ZAZUETA Report Released Date/Time: Jul 07, 2024 12:26 PM Reporting Lab: [facility] [address] Performing Lab: [facility] [address] C DIFF TOX B GENE PCR NEGATIVE Negative Jul 07, 2024 07:41 AM [facility] PHOSPHORUS Specimen Type: PLASMA No comment entered. Ordering Provider: JEVON ZAZUETA Report Released Date/Time: Jul 06, 2024 03:44 PM Reporting Lab: [facility] [address] Performing Lab: [facility] [address] PHOSPHORUS 3.1 mg/dL 2.3-4.3 Jul 07, 2024 07:41 AM [facility] BASIC METABOLIC PANEL+MG Specimen Type: PLASMA No comment entered. Ordering Provider: JEVON ZAZUETA Report Released Date/Time: Jul 06, 2024 03:44 PM Reporting Lab: [facility] [address] Performing Lab: [facility] [address] CREATININE 0.9 mg/dL 0.7-1.2 UREA NITROGEN 20 mg/dL 8-26 GLUCOSE 157 mg/dL H 70-100 SODIUM 136 mmol/L 136-145 POTASSIUM 3.7 mmol/L 3.5-5.1 CHLORIDE 102 mmol/L 98-107 CO2 21 mmol/L L 22-29 CALCIUM 9.8 mg/dL 8.4-10.2 MAGNESIUM 1.9 mg/dL 1.6-2.6 ANION GAP 13 mmol/L 5-15 .CREAT EGFR(CKD-EPI) >90 >60 Jul 07, 2024 07:40 AM [facility] CBC Specimen Type: BLOOD No comment entered. Ordering Provider: JEVON ZAZUETA Report Released Date/Time: Jul 06, 2024 03:44 PM Reporting Lab: [facility] [address] Performing Lab: [facility] [address] WBC 21.2 H 4.0-11.0 RBC 5.09 4.60-6.20 HGB 15.9 g/dL 13.5-17.9 HCT 48.3 41.0-54.0 MCV 94.9 fL 80.0-100.0 MCH 31.2 pg 27.0-33.0 MCHC 32.9 g/dL 32.0-37.5 PLT 500 H 150-400 MPV 10.3 fL 9.1-13.0 RDW 13.6 11.5-14.5 Jul 06, 2024 07:21 AM [facility] CBC Specimen Type: BLOOD No comment entered. Ordering Provider: JEVON ZAZUETA Report Released Date/Time: Jul 05, 2024 01:22 PM Reporting Lab: [facility] [address] Performing Lab: [facility] [address] WBC 18.0 H 4.0-11.0 RBC 4.83 4.60-6.20 HGB 14.6 g/dL 13.5-17.9 HCT 45.5 41.0-54.0 MCV 94.2 fL 80.0-100.0 MCH 30.2 pg 27.0-33.0 MCHC 32.1 g/dL 32.0-37.5 PLT 368 150-400 MPV 10.4 fL 9.1-13.0 RDW 13.6 11.5-14.5 Jul 06, 2024 07:21 AM [facility] PHOSPHORUS Specimen Type: PLASMA No comment entered. Ordering Provider: JEVON ZAZUETA Report Released Date/Time: Jul 05, 2024 01:22 PM Reporting Lab: [facility] [address] Performing Lab: [facility] [address] PHOSPHORUS 3.6 mg/dL 2.3-4.3 Jul 06, 2024 07:21 AM [facility] BASIC METABOLIC PANEL+MG Specimen Type: PLASMA No comment entered. Ordering Provider: JEVON ZAZUETA Report Released Date/Time: Jul 05, 2024 01:22 PM Reporting Lab: [facility] [address] Performing Lab: [facility] [address] CREATININE 0.7 mg/dL 0.7-1.2 UREA NITROGEN 12 mg/dL 8-26 GLUCOSE 108 mg/dL H 70-100 SODIUM 138 mmol/L 136-145 POTASSIUM 3.4 mmol/L L 3.5-5.1 CHLORIDE 104 mmol/L 98-107 CO2 20 mmol/L L 22-29 CALCIUM 9.3 mg/dL 8.4-10.2 MAGNESIUM 1.9 mg/dL 1.6-2.6 ANION GAP 14 mmol/L 5-15 .CREAT EGFR(CKD-EPI) >90 >60 Jul 05, 2024 07:17 AM [facility] MAGNESIUM Specimen Type: PLASMA No comment entered. Ordering Provider: JUANCARLOS ECHOLS S Report Released Date/Time: Jul 04, 2024 09:39 AM Reporting Lab: [facility] [address] Performing Lab: [facility] [address] MAGNESIUM 2.0 mg/dL 1.6-2.6 Jul 05, 2024 07:17 AM [facility] PHOSPHORUS Specimen Type: PLASMA No comment entered. Ordering Provider: JUANCARLOS ECHOLS S Report Released Date/Time: Jul 04, 2024 09:39 AM Reporting Lab: [facility] [address] Performing Lab: [facility] [address] PHOSPHORUS 2.0 mg/dL L 2.3-4.3 Jul 05, 2024 07:17 AM [facility] BASIC METABOLIC PANEL+MG Specimen Type: PLASMA No comment entered. Ordering Provider: JUANCARLOS ECHOLS S Report Released Date/Time: Jul 04, 2024 09:39 AM Reporting Lab: [facility] [address] Performing Lab: [facility] [address] CREATININE 0.7 mg/dL 0.7-1.2 UREA NITROGEN 12 mg/dL 8-26 GLUCOSE 84 mg/dL 70-100 SODIUM 135 mmol/L L 136-145 POTASSIUM 3.8 mmol/L 3.5-5.1 CHLORIDE 104 mmol/L 98-107 CO2 24 mmol/L 22-29 CALCIUM 9.3 mg/dL 8.4-10.2 MAGNESIUM 2.0 mg/dL 1.6-2.6 ANION GAP 7 mmol/L 5-15 .CREAT EGFR(CKD-EPI) >90 >60 Jul 05, 2024 07:16 AM [facility] CBC Specimen Type: BLOOD No comment entered. Ordering Provider: JUANCARLOS ECHOLS S Report Released Date/Time: Jul 04, 2024 09:39 AM Reporting Lab: [facility] [address] Performing Lab: [facility] [address] WBC 18.3 H 4.0-11.0 RBC 4.49 L 4.60-6.20 HGB 14.1 g/dL 13.5-17.9 HCT 43.4 41.0-54.0 MCV 96.7 fL 80.0-100.0 MCH 31.4 pg 27.0-33.0 MCHC 32.5 g/dL 32.0-37.5 PLT 317 150-400 MPV 10.0 fL 9.1-13.0 RDW 13.9 11.5-14.5 Jul 04, 2024 07:17 AM [facility] BASIC METABOLIC PANEL+MG Specimen Type: PLASMA No comment entered. Ordering Provider: GABINO CAMERON Report Released Date/Time: Jul 03, 2024 06:31 PM Reporting Lab: [facility] [address] Performing Lab: [facility] [address] CREATININE 0.7 mg/dL 0.7-1.2 UREA NITROGEN 16 mg/dL 8-26 GLUCOSE 129 mg/dL H 70-100 SODIUM 137 mmol/L 136-145 POTASSIUM 3.7 mmol/L 3.5-5.1 CHLORIDE 107 mmol/L 98-107 CO2 22 mmol/L 22-29 CALCIUM 9.0 mg/dL 8.4-10.2 MAGNESIUM 1.9 mg/dL 1.6-2.6 ANION GAP 8 mmol/L 5-15 .CREAT EGFR(CKD-EPI) >90 >60 Jul 04, 2024 07:17 AM [facility] PHOSPHORUS Specimen Type: PLASMA No comment entered. Ordering Provider: GABINO CAMERON Report Released Date/Time: Jul 03, 2024 06:31 PM Reporting Lab: [facility] [address] Performing Lab: [facility] [address] PHOSPHORUS 2.8 mg/dL 2.3-4.3 Jul 04, 2024 07:16 AM [facility] CBC Specimen Type: BLOOD No comment entered. Ordering Provider: GABINO CAMERON Report Released Date/Time: Jul 03, 2024 06:31 PM Reporting Lab: [facility] [address] Performing Lab: [facility] [address] WBC 20.6 H 4.0-11.0 RBC 4.63 4.60-6.20 HGB 14.2 g/dL 13.5-17.9 HCT 43.4 41.0-54.0 MCV 93.7 fL 80.0-100.0 MCH 30.7 pg 27.0-33.0 MCHC 32.7 g/dL 32.0-37.5 PLT 329 150-400 MPV 10.4 fL 9.1-13.0 RDW 13.8 11.5-14.5 Jul 04, 2024 07:16 AM [facility] CBC & DIFF Specimen Type: BLOOD Comment: Manual Differential Performed Ordering Provider: GABINO CAMERON Report Released Date/Time: Jul 03, 2024 06:31 PM Reporting Lab: [facility] [address] Performing Lab: [facility] [address] WBC 20.6 H 4.0-11.0 RBC 4.63 4.60-6.20 [...] MORPHOLOGY PRESENT Jul 04, 2024 07:15 AM [facility] BNP Specimen Type: PLASMA No comment entered. Ordering Provider: GABINO CAMERON Report Released Date/Time: Jul 03, 2024 06:31 PM Reporting Lab: [facility] [address] Performing Lab: [facility] [address] BNP 292 pg/mL H <99 Jul 03, 2024 10:32 PM [facility] FINGERSTICK GLUCOSE Specimen Type: BLOOD Comment: Save Result Nurse Notified Ordering Provider: KATELYNN PERSON Report Released Date/Time: Jul 03, 2024 10:50 PM Reporting Lab: [facility] [address] Performing Lab: [facility] [address] FINGERSTICK GLUCOSE 126 mg/dL H 70-100 Jul 03, 2024 05:33 PM [facility] FINGERSTICK GLUCOSE Specimen Type: BLOOD Comment: Save Result Nurse Notified Ordering Provider: KATELYNN PERSON Report Released Date/Time: Jul 03, 2024 05:46 PM Reporting Lab: [facility] [address] Performing Lab: [facility] [address] FINGERSTICK GLUCOSE 141 mg/dL H 70-100 Jul 03, 2024 02:31 PM [facility] POC ABG/ELECTROLYTES Specimen Type: ARTERIAL BLOOD Comment: FIO2 = 97% Patient Temp: 36.0 C Sample Type = ARTERIAL Ordering Provider: MAZIN ARREDONDO Report Released Date/Time: Jul 03, 2024 01:48 PM Reporting Lab: [facility] [address] Performing Lab: [facility] [address] POC PH 7.387 7.35-7.45 POC PCO2 34.4 [...] H 80.0-105.0 Jul 03, 2024 01:05 PM [facility] POC ABG/ELECTROLYTES Specimen Type: ARTERIAL BLOOD Comment: FIO2 = 53% Patient Temp: 36.2 C Sample Type = ARTERIAL Ordering Provider: MAZIN ARREDONDO Report Released Date/Time: Jul 03, 2024 01:48 PM Reporting Lab: [facility] [address] Performing Lab: [facility] [address] POC PH 7.280 L 7.35-7.45 POC PCO2 [...] mm[Hg] 80.0-105.0 Jul 03, 2024 06:15 AM [facility] URINALYSIS Specimen Type: URINE No comment entered. Ordering Provider: MARYBETH POWELL Report Released Date/Time: Jun 12, 2024 04:01 PM Reporting Lab: [facility] [address] Performing Lab: [facility] [address] URINE COLOR YELLOW SPECIFIC GRAVITY 1.031 1.003-1.03 [...] 250 NEGATIVE Jul 03, 2024 06:13 AM [facility] CBC Specimen Type: BLOOD No comment entered. Ordering Provider: MARYBETH POWELL Report Released Date/Time: Jun 12, 2024 03:59 PM Reporting Lab: [facility] [address] Performing Lab: [facility] [address] WBC 15.8 H 4.0-11.0 RBC 5.11 4.60-6.20 HGB 16.1 g/dL 13.5-17.9 HCT 49.1 41.0-54.0 MCV 96.1 fL 80.0-100.0 MCH 31.5 pg 27.0-33.0 MCHC 32.8 g/dL 32.0-37.5 PLT 357 150-400 MPV 9.8 fL 9.1-13.0 RDW 13.7 11.5-14.5 Jun 24, 2024 09:50 AM [facility] BASIC METABOLIC PANEL+MG Specimen Type: PLASMA Comment: Specimen received in Lab at: 0948 Ordering Provider: JEVON ZAZUETA Report Released Date/Time: Jun 23, 2024 06:07 PM Reporting Lab: [facility] [address] Performing Lab: [facility] [address] CREATININE 0.8 mg/dL 0.7-1.2 UREA NITROGEN 13 mg/dL 8-26 GLUCOSE 135 mg/dL H 70-100 SODIUM 135 mmol/L L 136-145 POTASSIUM 3.6 mmol/L 3.5-5.1 CHLORIDE 103 mmol/L 98-107 CO2 24 mmol/L 22-29 CALCIUM 9.2 mg/dL 8.4-10.2 MAGNESIUM 1.9 mg/dL 1.6-2.6 ANION GAP 8 mmol/L 5-15 .CREAT EGFR(CKD-EPI) >90 >60 Jun 24, 2024 09:50 AM [facility] CBC Specimen Type: BLOOD Comment: Specimen received in Lab at: 0948 Ordering Provider: JEVON ZAZUETA Report Released Date/Time: Jun 23, 2024 06:07 PM Reporting Lab: [facility] [address] Performing Lab: [facility] [address] WBC 15.5 H 4.0-11.0 RBC 4.93 4.60-6.20 HGB 15.2 g/dL 13.5-17.9 HCT 46.5 41.0-54.0 MCV 94.3 fL 80.0-100.0 MCH 30.8 pg 27.0-33.0 MCHC 32.7 g/dL 32.0-37.5 PLT 223 150-400 MPV 11.4 fL 9.1-13.0 RDW 13.9 11.5-14.5 Jun 23, 2024 07:52 AM [facility] COMPREHENSIVE METABOLIC PANEL+MG Specimen Type: PLASMA No comment entered. Ordering Provider: JEVON ZAZUETA Report Released Date/Time: Jun 22, 2024 05:51 PM Reporting Lab: [facility] [address] Performing Lab: [facility] [address] CREATININE 0.7 mg/dL 0.7-1.2 UREA NITROGEN 16 [...] >90 >60 Jun 23, 2024 07:52 AM [facility] CBC & DIFF Specimen Type: BLOOD Comment: Automated Differential Performed Ordering Provider: JEVON ZAZUETA Report Released Date/Time: Jun 22, 2024 05:51 PM Reporting Lab: [facility] [address] Performing Lab: [facility] [address] WBC 14.9 H 4.0-11.0 RBC 5.09 4.60-6.20 [...] 0.1 0.0-0.1 Jun 22, 2024 06:10 PM [facility] CBC Specimen Type: BLOOD No comment entered. Ordering Provider: JEVON ZAZUETA Report Released Date/Time: Jun 22, 2024 05:51 PM Reporting Lab: [facility] [address] Performing Lab: [facility] [address] WBC 16.9 H 4.0-11.0 RBC 5.28 4.60-6.20 HGB 16.9 g/dL 13.5-17.9 HCT 50.4 41.0-54.0 MCV 95.5 fL 80.0-100.0 MCH 32.0 pg 27.0-33.0 MCHC 33.5 g/dL 32.0-37.5 PLT 223 150-400 MPV 10.9 fL 9.1-13.0 RDW 14.0 11.5-14.5 Jun 22, 2024 06:10 PM [facility] COMPREHENSIVE METABOLIC PANEL+MG Specimen Type: PLASMA No comment entered. Ordering Provider: JEVON ZAZUETA Report Released Date/Time: Jun 22, 2024 05:51 PM Reporting Lab: [facility] [address] Performing Lab: [facility] [address] CREATININE 0.7 mg/dL 0.7-1.2 UREA NITROGEN 17 [...] >90 >60 Jun 21, 2024 06:48 PM [facility] URINALYSIS Specimen Type: URINE No comment entered. Ordering Provider: DELIA MARTINEZ Report Released Date/Time: Jun 21, 2024 05:45 PM Reporting Lab: [facility] [address] Performing Lab: [facility] [address] URINE COLOR YELLOW SPECIFIC GRAVITY 1.041 H [...] 500 NEGATIVE Jun 21, 2024 05:34 PM [facility] POC CREATININE Specimen Type: BLOOD No comment entered. Ordering Provider: DELIA MARTINEZ Report Released Date/Time: Jun 21, 2024 06:07 PM Reporting Lab: [facility] [address] Performing Lab: [facility] [address] POC CREATININE 1.1 mg/dL 0.6-1.3 Jun 21, 2024 05:30 PM [facility] POC ABG/LACTATE Specimen Type: VENOUS BLOOD No comment entered. Ordering Provider: DELIA MARTINEZ Report Released Date/Time: Jun 21, 2024 06:07 PM Reporting Lab: [facility] [address] Performing Lab: [facility] [address] POC PH 7.470 H 7.31-7.41 POC PCO2 31.2 mm[Hg] L 41.00-51 .0 0 POC PO2 46 mm[Hg] H 35.0-40.0 POC TCO2 24 mmol/L 24.0-29.0 POC HCO3 22.7 mmol/L L 23.0-28.0 POC BE ECT -1 mmol/L POC SO2 85 H 70-75 POC LACTATE 1.85 mmol/L 0.90-1.70 Jun 21, 2024 05:24 PM [facility] PROTHROMBIN TIME/INR Specimen Type: PLASMA No comment entered. Ordering Provider: DELIA MARTINEZ Report Released Date/Time: Jun 21, 2024 05:30 PM Reporting Lab: [facility] [address] Performing Lab: [facility] [address] .INR 1.2 H 0.8-1.1 .PT 13.9 s H 9.4-12.5 Jun 21, 2024 05:24 PM [facility] LIPASE Specimen Type: PLASMA No comment entered. Ordering Provider: DELIA MARTINEZ Report Released Date/Time: Jun 21, 2024 05:30 PM Reporting Lab: [facility] [address] Performing Lab: [facility] [address] LIPASE 32 U/L <60 Jun 21, 2024 05:24 PM [facility] EXTRA GOLD GEL TUBE Specimen Type: SERUM No comment entered. Ordering Provider: DELIA MARTINEZ Report Released Date/Time: Jun 21, 2024 05:41 PM Reporting Lab: [facility] [address] Performing Lab: [facility] [address] EXTRA GOLD GEL TUBE RECEIVED Jun 21, 2024 05:24 PM [facility] COMPREHENSIVE METABOLIC PANEL+MG Specimen Type: PLASMA No comment entered. Ordering Provider: DELIA MARTINEZ Report Released Date/Time: Jun 21, 2024 05:30 PM Reporting Lab: [facility] [address] Performing Lab: [facility] [address] CREATININE 0.9 mg/dL 0.7-1.2 UREA NITROGEN 29 [...] mg/dL <0.5 Jun 21, 2024 05:24 PM [facility] CBC & DIFF Specimen Type: BLOOD Comment: Manual Differential Performed Ordering Provider: DELIA MARTINEZ Report Released Date/Time: Jun 21, 2024 05:30 PM Reporting Lab: [facility] [address] Performing Lab: [facility] [address] WBC 21.3 H 4.0-11.0 RBC 5.48 4.60-6.20 [...] MORPHOLOGY PRESENT Jun 08, 2024 10:59 AM [facility] HEMOGLOBIN A1C Specimen Type: BLOOD [...] May 28, 2024 09:02 AM Reporting Lab: [facility] [phone] Performing Lab: [facility] [address] HEMOGLOBIN A1C 4.9 4.0-6.0 Jun 08, 2024 10:59 AM [facility] CBC Specimen Type: BLOOD No comment entered. Ordering Provider: MARYBETH POWELL Report Released Date/Time: May 28, 2024 09:02 AM Reporting Lab: [facility] [address] Performing Lab: [facility] [address] WBC 16.1 H 4.0-11.0 RBC 5.02 4.60-6.20 HGB 16.0 g/dL 13.5-17.9 HCT 47.1 41.0-54.0 MCV 93.8 fL 80.0-100.0 MCH 31.9 pg 27.0-33.0 MCHC 34.0 g/dL 32.0-37.5 PLT 228 150-400 MPV 10.3 fL 9.1-13.0 RDW 14.6 H 11.5-14.5 Jun 08, 2024 10:59 AM [facility] PROTHROMBIN TIME/INR Specimen Type: PLASMA No comment entered. Ordering Provider: MARYBETH POWELL Report Released Date/Time: May 28, 2024 09:02 AM Reporting Lab: [facility] [address] Performing Lab: [facility] [address] .INR 1.0 0.8-1.1 .PT 11.8 s 9.4-12.5 Jun 08, 2024 10:59 AM [facility] BASIC METABOLIC PANEL+MG Specimen Type: PLASMA No comment entered. Ordering Provider: MARYBETH POWELL Report Released Date/Time: May 28, 2024 09:02 AM Reporting Lab: [facility] [address] Performing Lab: 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 [facility] May 06, 2023 11:30 AM [...] VIEWS PA A ND LAT: FLACA WEAVER [id number] -1950 M Exm Date: JUL 08, 2024@10:09 Req Phys: KATELYNN PERSON Pat Loc: [facility]/07-08-2024@11:49 Img Loc: MAIN X-RAY Service: [place] [address] (Case 24 COMPLETE) CHEST 2 VIEWS PA AND LAT (RAD Detailed) CPT:31339 Reason for Study: Uptrending WBC, POD 5 Clinical History: [place] IS NOT under investigation for COVID-19 or is COVID-19 negative POD 5, work up for uptrending wbc Responsible provider name and phone number to notify for critical findings if other than user placing the order and pager listed below: User placing orders pager: Katelynn Person LAST CREATININE 0.9 (07/07/24) Report Status: Verified Date Reported: JUL 08, 2024 Date Verified: JUL 08, 2024 Cut Filer E-Sig: Report: CHEST 2 VIEWS PA AND [...] cardiopulmonary disease. READING PHYSICIAN: Sarbjit Vaughn M.D. -[phone] 07/08/2024 12:46 EST [facility] National Teleradiology Program [phone] (For Medical Practitioner Use Only) Attention Patients / Veterans: If you have questions or concerns about these test results, please contact your ordering provider or primary care team. Primary Interpreting Staff: RADIOLOGY,OUTSIDE SERVICE, Staff Physician / RADIOLOGY,OUTSIDE SERVICE [facility] Jul 08, 2024 10:[address] (AP) ABDOMEN/PE LVIS W CONTRAST: FLACA WEAVER [id number] -1950 M Exm Date: JUL 08, 2024@10:00 Req Phys: KATELYNN PERSON Pat Loc: 2K/07-08-2024@12:07 Img Loc: CT IMAGING Service: [place] [address] (Case [id number] COMPLETE) CT (AP) ABDOMEN/PELVIS W CONTRAST(CT Detailed) CPT:54921 Contrast Media : Non-ionic Iodinated Reason for [...] PLASMA .CREAT EGFR(CKD-E >90 Ref: >=60 Allergies: ([place] only) TERAZOSIN (Mar 13, 2015) Report Status: Verified Date Reported: JUL 08, 2024 Date Verified: JUL 08, 2024 Cut Filer E-Sig: Report: CT (AP) ABDOMEN/PELVIS W CONTRAST [...] as noted above READING PHYSICIAN: Celestino Blanc -[phone] 07/08/2024 13:04 EST [facility] National Teleradiology Program [phone] (For Medical Practitioner Use Only) Attention Patients / Veterans: If you have questions or concerns about these test results, please contact your ordering provider or primary care team. Primary Interpreting Staff: RADIOLOGY,OUTSIDE SERVICE, Staff Physician / RADIOLOGY,OUTSIDE SERVICE [facility] Jun 22, 2024 11:49 AM ABSCESS DRAIN PLAC EMENT PERITONEAL (P): FLACA WEAVER [id number] -1950 M Exm Date: JUN 22, 2024@11:49 Req Phys: ANGELA HOLDEN Loc: [facility]/06-22-2024@17:14 Img Loc: INTERVENTIONAL RADIOLOGY Service: [place] [address] (Case [id number] COMPLETE) IR PERITONEAL/RETROPERITONEAL PER(ANI Detailed) CPT:69004 Reason for Study: diverticulitis with abscess (Case 3570 COMPLETE) IR MOD SEDATION 10-22 MIN (ANI Detailed) CPT:58112 Clinical History: IS NOT under investigation for COVID-19 or is COVID-19 negative 73 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 please place abscess drain. Contact number for responsible provider who can be reached for any questions or notifications of critical findings: [phone] n/a LAST CREATININE 0.9 (06/21/24) Report Status: Verified Date Reported: JUN 22, 2024 Date Verified: JUN 22, 2024 Cut Filer E-Sig:/ES/LISA PENDLETON MD Report: PROCEDURES: Placement of [...] anesthesia. Using real-time CT fluoroscopy, a 5 Lithuanian Yueh centesis catheter was advanced into the collection in the left pelvis. A wire was coiled in the collection. The tract into the collection was dilated to accommodate the 12 Lithuanian locking pigtail drainage catheter. There was return [...] Primary Interpreting Staff: LISA PENDLETON MD, RADIOLOGIST (Cut Filer) /JRT LISA PENDLETON [facility] Jun 22, 2024 11:[address] NEEDLE PLACEMEN T (P): FLACA WEAVER [id number] -1950 M Exm Date: JUN 22, 2024@11:48 Req Phys: ANGELA HOLDEN [facility] Loc: [facility]/06-22-2024@17:14 Img Loc: CT IMAGING Service: [place] [address] (Case [id number] COMPLETE) CT SCAN FOR NEEDLE PLACEMENT (CT Detailed) CPT:75044 Reason for Study: l pelvic abscess drain Clinical History: Report Status: Verified Date Reported: JUN 22, 2024 Date Verified: JUN 22, 2024 Cut Filer E-Sig:/ES/LISA PENDLETON MD Report: PROCEDURES: Placement of [...] anesthesia. Using real-time CT fluoroscopy, a 5 Lithuanian VideoLensesis catheter was advanced into the collection in the left pelvis. A wire was coiled in the collection. The tract into the collection was dilated to accommodate the 12 Lithuanian locking pigtail drainage catheter. There was return [...] Primary Interpreting Staff: LISA PENDLETON MD, RADIOLOGIST (Cut Filer) /JRT LISA PENDLETON [facility] Jun 21, 2024 06:[address] (AP) ABDOMEN/PE LVIS (P): MEGFLACA YAMIL [id number] -1950 M Ex Date: JUN 21, 2024@18:09 Req Phys: DELIA MARTINEZ Loc: [facility] EMERGENCY DEPT WALK-IN (Re Img Loc: CT IMAGING Service: [place] [address] (Case [id number] COMPLETE) CT (AP) ABDOMEN/PELVIS W CONTRAST(CT Detailed) CPT:46630 Contrast Media : Non-ionic Iodinated Reason for [...] PLASMA .CREAT EGFR(CKD-E >90 Ref: >=60 Allergies: ([place] only) TERAZOSIN (Mar 13, 2015) Defer to [...] 21, 2024 Date Verified: JUN 21, 2024 Cut Filer E-Sig:/ALEXI/CARLOS A CUNNINGHAM DO Report: EXAMINATION: CT [...] Interpreting Staff: CARLOS A CUNNINGHAM DO, RADIOLOGIST (Cut Filer) /CARLOS A ROWELL [facility] Pathology Reports: +/- 30 days [...] COSIGNER: URGENCY: STATUS: COMPLETED $APHDR Reporting Lab: [facility] [CLIA# [id number]] [place] [address] - - - - - - - [...] - PATHOLOGY REPORT Accession No. [id number] - - - - - - - [...] - PATHOLOGY REPORT Accession No. [id number] - - - - - - - [...] Second circumferential surgical margin, en face; E-F: Thai Masseur diverticula; G: Thai Masseur section of mesentery; H: Random accounts receivable representative section of additional adipose tissue fragment. [...] Performing Laboratory: Surgical Pathology Report Performed By: [facility] [CLIA# [id number]] [place] [address] $FTR - - - - - - [...] - - FLACA WEAVER STANDARD FORM 515 ID:[id number] SEX:M :1950 AGE: 73 LOC:[id number] ADM:Jun DX:DIVERTICULITIS PCP: Jatinder Cabrera /alexi/ EDUARDO PALOMARES MD STAFF PATHOLOGIST Signed: 07/06/2024 10:40 EDUARDO PALOMARES [facility] Jun 22, 2024 01:15 PM LR MICROBIOLOGY RE PORT: Reporting Lab: [facility] [CLIA# [id number]] [place] [address] Accession [UID]: [id number] [[id number]] Received: Jun 22, 2024@13:38 Collection sample: FLUID Collection date: Jun 22, 2024 13:15 Provider: ANGELA HOLDEN Comment on specimen: LLQ ABSCESS, RECEIVED IN ANAEROBIC TRANSPORT VIAL Test(s) ordered: GRAM STAIN.................... completed: Jun 22, 2024 15:03 CULTURE & SUSCEPTIBILITY...... completed: Jun 25, 2024 * BACTERIOLOGY FINAL REPORT => Jun 25, 2024 10:56 TECH CODE: [id number] GRAM STAIN: DIRECT SMEAR of specimen before [...] -=--=--=--=--=--=--=-- Performing Laboratory: Bacteriology Report Performed By: [facility] [CLIA# [id number]] [place] [address] [facility] Jun 22, 2024 01:15 PM LR MICROBIOLOGY RE PORT: Reporting Lab: [facility] [CLIA# [id number]] [place] [address] Accession [UID]: [id number] [[id number]] Received: Jun 22, 2024@13:38 Collection sample: FLUID Collection date: Jun 22, 2024 13:15 Provider: ANGELA HOLDEN Comment on specimen: LLQ ABSCESS, RECEIVED IN ANAEROBIC TRANSPORT VIAL Test(s) ordered: ANAEROBIC CULTURE............. completed: Jun 28, 2024 * BACTERIOLOGY FINAL REPORT => Jun 28, 2024 10:08 [facility] CODE: [id number] CULTURE RESULTS: HEAVY GROWTH MIXED ANAEROBES Comment: including the followin+ Bacteroides fragilis 4+ Bacteroides vulgatus 4+ Clostridium innocuum Beta-lactamase negative 4+ Bacteroides caccae 4+ Parvimonas micra 4+ Bacteroides uniformis 4+ Gemella morbillorum 4+ anaerobic small, Gram Positive Rods 4+ Bacteroides thetaiotaomicron Standard workup is now complete. Bacteriology Remark(s): THIS REPORT IS FINAL =--=--=--=--=--=--=--=--=--= --=--=--=--=--=--=--=--=--=- -=--=--=--=--=--=--=-- Performing Laboratory: Bacteriology Report Performed By: [facility] [IA# [id number]] [place] [address] [facility] Jun 21, 2024 06:12 PM LR MICROBIOLOGY RE PORT: Reporting Lab: [facility] [IA# [id number]] [place] [address] Accession [UID]: [id number] [[id number]] Received: Jun 21, 2024@18:12 Collection sample: BLOOD [...] -=--=--=--=--=--=--=-- Performing Laboratory: Bacteriology Report Performed By: [facility] [IA# [id number]] [place] [address] [facility] Jun 21, 2024 06:11 PM LR MICROBIOLOGY RE PORT: Reporting Lab: [facility] [IA# [id number]] [place] [address] Accession [UID]: [id number] [[id number]] Received: Jun 21, 2024@18:11 Collection sample: BLOOD [...] -=--=--=--=--=--=--=-- Performing Laboratory: Bacteriology Report Performed By: [facility] [CLIA# [id number]] [place] [address] [facility] Jun 08, 2024 11:00 AM LR MICROBIOLOGY RE PORT: Reporting Lab: [facility] [CLIA# [id number]] [place] [address] Accession [UID]: [id number] [[id number]] Received: Jun 08, 2024@11:00 Collection sample: URINE Collection date: Jun 08, 2024 11:00 Provider: MARYBETH POWELL Comment on specimen: urine Test(s) ordered: CULTURE & SUSCEPTIBILITY...... completed: Jun 09, 2024 * BACTERIOLOGY FINAL REPORT => Jun 09, 2024 19:12 TECH CODE: [id number] CULTURE RESULTS: ESCHERICHIA COLI - Quantity: >100,000 [...] -=--=--=--=--=--=--=-- Performing Laboratory: Bacteriology Report Performed By: [facility] [CLIA# [id number]] [place] [address] [facility] Encounter Notes: All associated encounter notes This section contains the clinical notes associated to the Encounter. Date/Time Encounter Note(s) Provider Source Jul 06, 2024 01:23 PM PRIMARY CARE NOTE: LOCAL TITLE: MEDICINE INPT CO-MANAGEMENT NOTE STANDARD TITLE: PRIMARY CARE NOTE DATE OF NOTE: JUL 06, 2024@13:23 ENTRY DATE: JUL 06, 2024@13:23:45 AUTHOR: JEVON ZAZUETA EXP COSIGNER: URGENCY: STATUS: COMPLETED DAILY MEDICAL PROGRESS NOTE Nursing Notes reviewed. SUBJECTIVE: Met with MEGFLACA LOBO who is a 73 y/o MALE, and other family present. No acute events over night. Mr. Weaver reports he is doing relatively well. He is still getting some nausea, he thinks it's from getting pills on a empty stomach, reports the Zofran is helping. He reports pain is still present but tolerable, no longer has the MATERIAL HANDLER 1ST SHIFT button. He reports he is still getting gas in his ostomy bag, no overt stool yet. No other complaints. OBJECTIVE VITALS: Blood pressure: Measurement DT BP 07/06/2024 12:18 136/88 07/06/2024 09:11 162/80 07/05/2024 16:51 147/88 Pulse: Measurement DT PULSE 07/06/2024 09:11 93 07/05/2024 16:51 97 07/05/2024 13:00 57 RR: 18 Temp: 97 F [36.1 C] SaO2: 96% on RA REVIEW OF SYSTEMS A 10 point system review was done and found to be negative and non- contributory, unless noted in the HPI. PHYSICAL EXAM: GENERAL: Elderly male sitting up in chair, appears comfortable, NAD. ENT: Oral membranes are moist with no exudate. CV: S1/S2, RRR, no murmur, rub or gallop. RESPIRATORY: Lungs CTAB, Regular/relaxed work of breathing, no cough. ABDOMEN: [...] FUROSEMIDE TAB 20MG PO QDAY ACTIVE 6) HYDROCHLOROTHIAZIDE/LISINOPR IL TAB 1 TABLET PO QDAY ACTIVE 7) [...] to arouse and RR<8). Call provider or DIRECTOR OF TRAUMA. May repeat every 2-3 min up to 3 total doses. Administer INTRAMUSCULARLY if no IV access. 11) NITROGLYCERIN TAB,SUBLINGUAL 0.4MG SL QDAY PRN for ACTIVE chest pain 12) ONDANSETRON TAB 8MG PO Q6H PRN FOR NAUSEA ACTIVE 13) OXYCODONE TAB 5MG - 10MG PO Q4H PRN Sliding Scale - ACTIVE 1-/ pain 5MG, 6-1010 pain 10 MG 14) PIPERACILLIN/TAZOBACTAM 3.375GM 50ML INJ in ACTIVE PIPERACIL/TAZOB 3.375GM PREMIX 50 ML INFUSE OVER 30 MINUTES For 4 days (07/03-07/07) IVPB Q6H 15) PROCHLORPERAZINE INJ 5MG/1ML IV Q6H PRN If zofran ACTIVE ineffective 16) SALINE FLUSH INJ 10ML IV Q8H AFTER EACH USE, MINIMUM ACTIVE OF EVERY SHIFT. 17) SPIRONOLACTONE TAB 12.5MG PO QDAY ACTIVE LABS: [...] splenic flexure mobilization, and diverting loop ileostomy. New plans today: -Will reach out to Gen Surg and see if they have any contraindications or time line on when he can resume Aspirin 81 mg's daily. -40 mEq of KCl PO. -Will DC continuous pulse ox due to off of MATERIAL HANDLER 1ST SHIFT analgesics. # Chronic diverticulitis c/b colovesicular fistula s/p lap converted to open sigmoid colectomy, splenic flexure mobilization, and diverting loop ileostomy, 5 Nov # Acute post operative pain # Leukocytosis, in setting of surgery, Dexamethasone and known recent fistula. WBC slowly trending down, afebrile, non-toxic. Likely multifactorial with fistula/infection, reactive due to surgery, and did get Dexamethasone during surgery. -Per Colorectal: Wound care, pain control, antibiotics, DVT prophylaxis, PT/OT/activity, diet resumed. -Agree with ongoing Zosyn, CRS noted they plan for 4 days post op, currently last day planned 07/07 in the PM. # Intermittent bradycardia, appears chronic # Known 2nd degree AV block type I (Camille) At times HR's down to mid 40's, asymptomatic. Had had that with prior admissions. Not on any rate control. -Continue to clinically monitor. -Avoid AV blocking meds. Chronic medical problems: # CAD # HLD Not on beta rina due to AVB and bradycardia. In review of EMR, VET is supposed to be on a baby aspirin 81 mg's daily, EMR notes hint to non- compliance. Mr. Weaver reports he was never told NOT to take ASA but he just doesn't. He is not against resuming it. -Continue home Atorvastatin. -Continue home Isosorbide and PRN Nitroglycerine. --Will reach out to Gen Surg and see if they have any contraindications or time line on when he can resume Aspirin 81 mg's daily. # HFpEF, LVEF 60-65% # HTN Appears [...] >90% if needed. # h/o Renal infarction ' Creatine continues to be at baseline. -Continue to clinically monitor. # MEDICINE CONSIDERATIONS -Medicine continues to follow. Prophylaxis: Lovenox q daily. Diet: Full liquid. IVF: None. /alexi/ Jevon Zazueta CNP, EDITOR MAP Nurse Practitioner, Specialty Care-Surgery Signed: 07/06/2024 13:40 JEVON ZAZUETA [facility]
--- OUTSIDE RECORDS SUMMARY | 2024-07-16 07:17 | XMS_ITS | Encounter Summary ---
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 Date/Time Encounter Type Encounter Description Reason Provider Source Jul 04, 2024 02:18 PM POSTOP FOLLOW-UP VISIT GENERAL SURGERY ICD-10-CM K57.90 Dvrtclos of intest, part unsp, w/o perf or abscess w/o bleed SOCORRO ARREDONDO [facility] Encounter Template Text not used by [place] Assessments - Encounter Diagnoses This section includes the primary and secondary diagnoses documented for the Encounter. Date/Time Primary/Secondary Diagnosis Diagnosis Name Provider Source Jul 06, 2024 02:19 PM PRIMARY Dvrtclos of intest, part unsp, w/o perf or abscess w/o bleed SOCORRO ARREDONDO [facility] Plan of Treatment: Future Appointments (+ 6 months) and Future Tests (+/- 45 days) The Plan of Treatment section includes future care activities for the patient from all [place] [facility] This section includes future appointments and future orders which are active, pending or scheduled. Future Appointments This section includes appointments that were scheduled to occur 6 months from the date of the Encounter, up to a maximum of 20 appointments. The data comes from all [facility] facilities. Appointment Date/Time Appointment Type Appointme nt Facility Name Jul 13, 2024 08:15 AM AMBULATORY - NONE [facility] Active, Pending, and Scheduled Orders This section includes a listing of several types of active, pending, and scheduled orders, including clinic medications orders, diagnostic test orders, procedure orders and consult orders; where the start date of the order is 45 days before the date of the Encounter or 45 days after the date of theEncounter. The data comes from all [facility]. Test Date/Time Test Type Test Details Facility Name May 28, 2024 12:00 AM Laboratory - Blood Bank Order TYPE & SCREEN - LAB BLOOD SP [facility] Jun 08, 2024 09:57 AM Laboratory - Chemi stry Order URINALYSIS URINE WC ONCE [facility] Jun 12, 2024 12:00 AM Laboratory - Chemi stry Order BNP PLASMA SP ONCE [facility] Jun 21, 2024 05:45 PM Laboratory - Blood Bank Order TYPE & SCREEN - LAB BLOOD [facility] Jul 03, 2024 12:00 AM Laboratory - Blood Bank Order TYPE & SCREEN - LAB BLOOD [facility] Jul 16, 2024 12:00 AM Laboratory - Chemi stry Order CBC BLOOD SP ONCE [facility] Jul 17, 2024 12:00 AM Laboratory - Chemi stry Order BASIC METABOLIC PANEL+MG PLASMA SP ONCE [facility] Lab Results: +/- 30 days of [...] Range Comment Jul 10, 2024 07:16 AM [facility] PHOSPHORUS Specimen Type: PLASMA No comment entered. Ordering Provider: BALAJADIA,MAR IA S Report Released Date/Time: Jul 09, 2024 12:23 PM Reporting Lab: [facility] [address] Performing Lab: [facility] [address] PHOSPHORUS 3.0 mg/dL 2.3-4.3 Jul 10, 2024 07:16 AM [facility] BASIC METABOLIC PANEL+MG Specimen Type: PLASMA No comment entered. Ordering Provider: JUANCARLOS ECHOLS S Report Released Date/Time: Jul 09, 2024 12:23 PM Reporting Lab: [facility] [address] Performing Lab: [facility] [address] CREATININE 0.7 mg/dL 0.7-1.2 UREA NITROGEN 27 mg/dL H 8-26 GLUCOSE 104 mg/dL H 70-100 SODIUM 133 mmol/L L 136-145 POTASSIUM 4.3 mmol/L 3.5-5.1 CHLORIDE 102 mmol/L 98-107 CO2 19 mmol/L L 22-29 CALCIUM 10.1 mg/dL 8.4-10.2 MAGNESIUM 1.9 mg/dL 1.6-2.6 ANION GAP 12 mmol/L 5-15 .CREAT EGFR(CKD-EPI) >90 >60 Jul 10, 2024 07:15 AM [facility] CBC Specimen Type: BLOOD No comment entered. Ordering Provider: JUANCARLOS ECHOLS S Report Released Date/Time: Jul 09, 2024 12:23 PM Reporting Lab: [facility] [address] Performing Lab: [facility] [address] WBC 18.8 H 4.0-11.0 RBC 5.08 4.60-6.20 HGB 15.9 g/dL 13.5-17.9 HCT 46.8 41.0-54.0 MCV 92.1 fL 80.0-100.0 MCH 31.3 pg 27.0-33.0 MCHC 34.0 g/dL 32.0-37.5 PLT 479 H 150-400 MPV 10.2 fL 9.1-13.0 RDW 13.7 11.5-14.5 Jul 09, 2024 07:08 AM [facility] CBC Specimen Type: BLOOD No comment entered. Ordering Provider: QUYNH WEISS Report Released Date/Time: Jul 08, 2024 06:18 PM Reporting Lab: [facility] [address] Performing Lab: [facility] [address] WBC 15.3 H 4.0-11.0 RBC 4.91 4.60-6.20 HGB 15.1 g/dL 13.5-17.9 HCT 45.7 41.0-54.0 MCV 93.1 fL 80.0-100.0 MCH 30.8 pg 27.0-33.0 MCHC 33.0 g/dL 32.0-37.5 PLT 443 H 150-400 MPV 10.0 fL 9.1-13.0 RDW 13.5 11.5-14.5 Jul 08, 2024 10:50 AM [facility] URINALYSIS Specimen Type: URINE No comment entered. Ordering Provider: KATELYNN PERSON Report Released Date/Time: Jul 08, 2024 08:41 AM Reporting Lab: [facility] [address] Performing Lab: [facility] [address] URINE COLOR YELLOW SPECIFIC GRAVITY >1.050 H [...] NEGATIVE NEGATIVE Jul 08, 2024 09:54 AM [facility] CBC Specimen Type: BLOOD Comment: Specimen received in Lab at: 0952 Ordering Provider: JUANCARLOS ECHOLS Report Released Date/Time: Jul 07, 2024 04:49 PM Reporting Lab: [facility] [address] Performing Lab: [facility] [address] WBC 17.5 H 4.0-11.0 RBC 4.88 4.60-6.20 HGB 14.9 g/dL 13.5-17.9 HCT 45.7 41.0-54.0 MCV 93.6 fL 80.0-100.0 MCH 30.5 pg 27.0-33.0 MCHC 32.6 g/dL 32.0-37.5 PLT 472 H 150-400 MPV 10.2 fL 9.1-13.0 RDW 13.7 11.5-14.5 Jul 08, 2024 09:54 AM [facility] PHOSPHORUS Specimen Type: PLASMA Comment: Specimen received in Lab at: 0952 Ordering Provider: JUANCARLOS ECHOLS S Report Released Date/Time: Jul 07, 2024 04:49 PM Reporting Lab: [facility] [address] Performing Lab: [facility] [address] PHOSPHORUS 2.6 mg/dL 2.3-4.3 Jul 08, 2024 09:54 AM [facility] BASIC METABOLIC PANEL+MG Specimen Type: PLASMA Comment: Specimen received in Lab at: 0952 Ordering Provider: JUANCARLOS ECHOLS S Report Released Date/Time: Jul 07, 2024 04:49 PM Reporting Lab: [facility] [address] Performing Lab: [facility] [address] CREATININE 0.9 mg/dL 0.7-1.2 UREA NITROGEN 26 mg/dL 8-26 GLUCOSE 128 mg/dL H 70-100 SODIUM 134 mmol/L L 136-145 POTASSIUM 3.4 mmol/L L 3.5-5.1 CHLORIDE 100 mmol/L 98-107 CO2 24 mmol/L 22-29 CALCIUM 9.8 mg/dL 8.4-10.2 MAGNESIUM 1.8 mg/dL 1.6-2.6 ANION GAP 10 mmol/L 5-15 .CREAT EGFR(CKD-EPI) >90 >60 Jul 07, 2024 02:00 PM [facility] C DIFF PANEL Specimen Type: FECES No comment entered. Ordering Provider: JEVON ZAZUETA Report Released Date/Time: Jul 07, 2024 12:26 PM Reporting Lab: [facility] [address] Performing Lab: [facility] [address] C DIFF TOX B GENE PCR NEGATIVE Negative Jul 07, 2024 07:41 AM [facility] PHOSPHORUS Specimen Type: PLASMA No comment entered. Ordering Provider: JEVON ZAZUETA Report Released Date/Time: Jul 06, 2024 03:44 PM Reporting Lab: [facility] [address] Performing Lab: [facility] [address] PHOSPHORUS 3.1 mg/dL 2.3-4.3 Jul 07, 2024 07:41 AM [facility] BASIC METABOLIC PANEL+MG Specimen Type: PLASMA No comment entered. Ordering Provider: JEVON ZAZUETA Report Released Date/Time: Jul 06, 2024 03:44 PM Reporting Lab: [facility] [address] Performing Lab: [facility] [address] CREATININE 0.9 mg/dL 0.7-1.2 UREA NITROGEN 20 mg/dL 8-26 GLUCOSE 157 mg/dL H 70-100 SODIUM 136 mmol/L 136-145 POTASSIUM 3.7 mmol/L 3.5-5.1 CHLORIDE 102 mmol/L 98-107 CO2 21 mmol/L L 22-29 CALCIUM 9.8 mg/dL 8.4-10.2 MAGNESIUM 1.9 mg/dL 1.6-2.6 ANION GAP 13 mmol/L 5-15 .CREAT EGFR(CKD-EPI) >90 >60 Jul 07, 2024 07:40 AM [facility] CBC Specimen Type: BLOOD No comment entered. Ordering Provider: JEVON ZAZUETA Report Released Date/Time: Jul 06, 2024 03:44 PM Reporting Lab: [facility] [address] Performing Lab: [facility] [address] WBC 21.2 H 4.0-11.0 RBC 5.09 4.60-6.20 HGB 15.9 g/dL 13.5-17.9 HCT 48.3 41.0-54.0 MCV 94.9 fL 80.0-100.0 MCH 31.2 pg 27.0-33.0 MCHC 32.9 g/dL 32.0-37.5 PLT 500 H 150-400 MPV 10.3 fL 9.1-13.0 RDW 13.6 11.5-14.5 Jul 06, 2024 07:21 AM [facility] CBC Specimen Type: BLOOD No comment entered. Ordering Provider: JEVON ZAZUETA Report Released Date/Time: Jul 05, 2024 01:22 PM Reporting Lab: [facility] [address] Performing Lab: [facility] [address] WBC 18.0 H 4.0-11.0 RBC 4.83 4.60-6.20 HGB 14.6 g/dL 13.5-17.9 HCT 45.5 41.0-54.0 MCV 94.2 fL 80.0-100.0 MCH 30.2 pg 27.0-33.0 MCHC 32.1 g/dL 32.0-37.5 PLT 368 150-400 MPV 10.4 fL 9.1-13.0 RDW 13.6 11.5-14.5 Jul 06, 2024 07:21 AM [facility] PHOSPHORUS Specimen Type: PLASMA No comment entered. Ordering Provider: JEVON ZAZUETA Report Released Date/Time: Jul 05, 2024 01:22 PM Reporting Lab: [facility] [address] Performing Lab: [facility] [address] PHOSPHORUS 3.6 mg/dL 2.3-4.3 Jul 06, 2024 07:21 AM [facility] BASIC METABOLIC PANEL+MG Specimen Type: PLASMA No comment entered. Ordering Provider: JEVON ZAZUETA Report Released Date/Time: Jul 05, 2024 01:22 PM Reporting Lab: [facility] [address] Performing Lab: [facility] [address] CREATININE 0.7 mg/dL 0.7-1.2 UREA NITROGEN 12 mg/dL 8-26 GLUCOSE 108 mg/dL H 70-100 SODIUM 138 mmol/L 136-145 POTASSIUM 3.4 mmol/L L 3.5-5.1 CHLORIDE 104 mmol/L 98-107 CO2 20 mmol/L L 22-29 CALCIUM 9.3 mg/dL 8.4-10.2 MAGNESIUM 1.9 mg/dL 1.6-2.6 ANION GAP 14 mmol/L 5-15 .CREAT EGFR(CKD-EPI) >90 >60 Jul 05, 2024 07:17 AM [facility] MAGNESIUM Specimen Type: PLASMA No comment entered. Ordering Provider: BALAJADIA,MAR IA S Report Released Date/Time: Jul 04, 2024 09:39 AM Reporting Lab: [facility] [address] Performing Lab: [facility] [address] MAGNESIUM 2.0 mg/dL 1.6-2.6 Jul 05, 2024 07:17 AM [facility] PHOSPHORUS Specimen Type: PLASMA No comment entered. Ordering Provider: JUANCARLOS ECHOLS S Report Released Date/Time: Jul 04, 2024 09:39 AM Reporting Lab: [facility] [address] Performing Lab: [facility] [address] PHOSPHORUS 2.0 mg/dL L 2.3-4.3 Jul 05, 2024 07:17 AM [facility] BASIC METABOLIC PANEL+MG Specimen Type: PLASMA No comment entered. Ordering Provider: JUANCARLOS ECHOLS S Report Released Date/Time: Jul 04, 2024 09:39 AM Reporting Lab: [facility] [address] Performing Lab: [facility] [address] CREATININE 0.7 mg/dL 0.7-1.2 UREA NITROGEN 12 mg/dL 8-26 GLUCOSE 84 mg/dL 70-100 SODIUM 135 mmol/L L 136-145 POTASSIUM 3.8 mmol/L 3.5-5.1 CHLORIDE 104 mmol/L 98-107 CO2 24 mmol/L 22-29 CALCIUM 9.3 mg/dL 8.4-10.2 MAGNESIUM 2.0 mg/dL 1.6-2.6 ANION GAP 7 mmol/L 5-15 .CREAT EGFR(CKD-EPI) >90 >60 Jul 05, 2024 07:16 AM [facility] CBC Specimen Type: BLOOD No comment entered. Ordering Provider: JUANCARLOS ECHOLS S Report Released Date/Time: Jul 04, 2024 09:39 AM Reporting Lab: [facility] [address] Performing Lab: [facility] [address] WBC 18.3 H 4.0-11.0 RBC 4.49 L 4.60-6.20 HGB 14.1 g/dL 13.5-17.9 HCT 43.4 41.0-54.0 MCV 96.7 fL 80.0-100.0 MCH 31.4 pg 27.0-33.0 MCHC 32.5 g/dL 32.0-37.5 PLT 317 150-400 MPV 10.0 fL 9.1-13.0 RDW 13.9 11.5-14.5 Jul 04, 2024 07:17 AM [facility] BASIC METABOLIC PANEL+MG Specimen Type: PLASMA No comment entered. Ordering Provider: GABINO CAMERON Report Released Date/Time: Jul 03, 2024 06:31 PM Reporting Lab: [facility] [address] Performing Lab: [facility] [address] CREATININE 0.7 mg/dL 0.7-1.2 UREA NITROGEN 16 mg/dL 8-26 GLUCOSE 129 mg/dL H 70-100 SODIUM 137 mmol/L 136-145 POTASSIUM 3.7 mmol/L 3.5-5.1 CHLORIDE 107 mmol/L 98-107 CO2 22 mmol/L 22-29 CALCIUM 9.0 mg/dL 8.4-10.2 MAGNESIUM 1.9 mg/dL 1.6-2.6 ANION GAP 8 mmol/L 5-15 .CREAT EGFR(CKD-EPI) >90 >60 Jul 04, 2024 07:17 AM [facility] PHOSPHORUS Specimen Type: PLASMA No comment entered. Ordering Provider: GABINO CAMERON Report Released Date/Time: Jul 03, 2024 06:31 PM Reporting Lab: [facility] [address] Performing Lab: [facility] [address] PHOSPHORUS 2.8 mg/dL 2.3-4.3 Jul 04, 2024 07:16 AM [facility] CBC Specimen Type: BLOOD No comment entered. Ordering Provider: GABINO CAMERON Report Released Date/Time: Jul 03, 2024 06:31 PM Reporting Lab: [facility] [address] Performing Lab: [facility] [address] WBC 20.6 H 4.0-11.0 RBC 4.63 4.60-6.20 HGB 14.2 g/dL 13.5-17.9 HCT 43.4 41.0-54.0 MCV 93.7 fL 80.0-100.0 MCH 30.7 pg 27.0-33.0 MCHC 32.7 g/dL 32.0-37.5 PLT 329 150-400 MPV 10.4 fL 9.1-13.0 RDW 13.8 11.5-14.5 Jul 04, 2024 07:16 AM [facility] CBC & DIFF Specimen Type: BLOOD Comment: Manual Differential Performed Ordering Provider: GABINO CAMERON Report Released Date/Time: Jul 03, 2024 06:31 PM Reporting Lab: [facility] [address] Performing Lab: [facility] [address] WBC 20.6 H 4.0-11.0 RBC 4.63 4.60-6.20 [...] MORPHOLOGY PRESENT Jul 04, 2024 07:15 AM [facility] BNP Specimen Type: PLASMA No comment entered. Ordering Provider: GABINO CAMERON Report Released Date/Time: Jul 03, 2024 06:31 PM Reporting Lab: [facility] [address] Performing Lab: [facility] [address] BNP 292 pg/mL H <99 Jul 03, 2024 10:32 PM [facility] FINGERSTICK GLUCOSE Specimen Type: BLOOD Comment: Save Result Nurse Notified Ordering Provider: KATELYNN PERSON Report Released Date/Time: Jul 03, 2024 10:50 PM Reporting Lab: [facility] [address] Performing Lab: [facility] [address] FINGERSTICK GLUCOSE 126 mg/dL H 70-100 Jul 03, 2024 05:33 PM [facility] FINGERSTICK GLUCOSE Specimen Type: BLOOD Comment: Save Result Nurse Notified Ordering Provider: KATELYNN PERSON Report Released Date/Time: Jul 03, 2024 05:46 PM Reporting Lab: [facility] [address] Performing Lab: [facility] [address] FINGERSTICK GLUCOSE 141 mg/dL H 70-100 Jul 03, 2024 02:31 PM [facility] POC ABG/ELECTROLYTES Specimen Type: ARTERIAL BLOOD Comment: FIO2 = 97% Patient Temp: 36.0 C Sample Type = ARTERIAL Ordering Provider: MAZIN ARREDONDO Report Released Date/Time: Jul 03, 2024 01:48 PM Reporting Lab: [facility] [address] Performing Lab: [facility] [address] POC PH 7.387 7.35-7.45 POC PCO2 34.4 [...] H 80.0-105.0 Jul 03, 2024 01:05 PM [facility] POC ABG/ELECTROLYTES Specimen Type: ARTERIAL BLOOD Comment: FIO2 = 53% Patient Temp: 36.2 C Sample Type = ARTERIAL Ordering Provider: MAZIN ARREDONDO Report Released Date/Time: Jul 03, 2024 01:48 PM Reporting Lab: [facility] [address] Performing Lab: [facility] [address] POC PH 7.280 L 7.35-7.45 POC PCO2 [...] mm[Hg] 80.0-105.0 Jul 03, 2024 06:15 AM [facility] URINALYSIS Specimen Type: URINE No comment entered. Ordering Provider: MARYBETH POWELL Report Released Date/Time: Jun 12, 2024 04:01 PM Reporting Lab: [facility] [address] Performing Lab: [facility] [address] URINE COLOR YELLOW SPECIFIC GRAVITY 1.031 1.003-1.03 [...] 250 NEGATIVE Jul 03, 2024 06:13 AM [facility] CBC Specimen Type: BLOOD No comment entered. Ordering Provider: MARYBETH POWELL Report Released Date/Time: Jun 12, 2024 03:59 PM Reporting Lab: [facility] [address] Performing Lab: [facility] [address] WBC 15.8 H 4.0-11.0 RBC 5.11 4.60-6.20 HGB 16.1 g/dL 13.5-17.9 HCT 49.1 41.0-54.0 MCV 96.1 fL 80.0-100.0 MCH 31.5 pg 27.0-33.0 MCHC 32.8 g/dL 32.0-37.5 PLT 357 150-400 MPV 9.8 fL 9.1-13.0 RDW 13.7 11.5-14.5 Jun 24, 2024 09:50 AM [facility] BASIC METABOLIC PANEL+MG Specimen Type: PLASMA Comment: Specimen received in Lab at: 0948 Ordering Provider: JEVON ZAZUETA Report Released Date/Time: Jun 23, 2024 06:07 PM Reporting Lab: [facility] [address] Performing Lab: [facility] [address] CREATININE 0.8 mg/dL 0.7-1.2 UREA NITROGEN 13 mg/dL 8-26 GLUCOSE 135 mg/dL H 70-100 SODIUM 135 mmol/L L 136-145 POTASSIUM 3.6 mmol/L 3.5-5.1 CHLORIDE 103 mmol/L 98-107 CO2 24 mmol/L 22-29 CALCIUM 9.2 mg/dL 8.4-10.2 MAGNESIUM 1.9 mg/dL 1.6-2.6 ANION GAP 8 mmol/L 5-15 .CREAT EGFR(CKD-EPI) >90 >60 Jun 24, 2024 09:50 AM [facility] CBC Specimen Type: BLOOD Comment: Specimen received in Lab at: 0948 Ordering Provider: JEVON ZAZUETA Report Released Date/Time: Jun 23, 2024 06:07 PM Reporting Lab: [facility] [address] Performing Lab: [facility] [address] WBC 15.5 H 4.0-11.0 RBC 4.93 4.60-6.20 HGB 15.2 g/dL 13.5-17.9 HCT 46.5 41.0-54.0 MCV 94.3 fL 80.0-100.0 MCH 30.8 pg 27.0-33.0 MCHC 32.7 g/dL 32.0-37.5 PLT 223 150-400 MPV 11.4 fL 9.1-13.0 RDW 13.9 11.5-14.5 Jun 23, 2024 07:52 AM [facility] COMPREHENSIVE METABOLIC PANEL+MG Specimen Type: PLASMA No comment entered. Ordering Provider: JEVON ZAZUETA Report Released Date/Time: Jun 22, 2024 05:51 PM Reporting Lab: [facility] [address] Performing Lab: [facility] [address] CREATININE 0.7 mg/dL 0.7-1.2 UREA NITROGEN 16 [...] >90 >60 Jun 23, 2024 07:52 AM [facility] CBC & DIFF Specimen Type: BLOOD Comment: Automated Differential Performed Ordering Provider: JEVON ZAZUETA Report Released Date/Time: Jun 22, 2024 05:51 PM Reporting Lab: [facility] [address] Performing Lab: [facility] [address] WBC 14.9 H 4.0-11.0 RBC 5.09 4.60-6.20 [...] 0.1 0.0-0.1 Jun 22, 2024 06:10 PM [facility] CBC Specimen Type: BLOOD No comment entered. Ordering Provider: JEVON ZAZUETA Report Released Date/Time: Jun 22, 2024 05:51 PM Reporting Lab: [facility] [address] Performing Lab: [facility] [address] WBC 16.9 H 4.0-11.0 RBC 5.28 4.60-6.20 HGB 16.9 g/dL 13.5-17.9 HCT 50.4 41.0-54.0 MCV 95.5 fL 80.0-100.0 MCH 32.0 pg 27.0-33.0 MCHC 33.5 g/dL 32.0-37.5 PLT 223 150-400 MPV 10.9 fL 9.1-13.0 RDW 14.0 11.5-14.5 Jun 22, 2024 06:10 PM [facility] COMPREHENSIVE METABOLIC PANEL+MG Specimen Type: PLASMA No comment entered. Ordering Provider: JEVON ZAZUETA Report Released Date/Time: Jun 22, 2024 05:51 PM Reporting Lab: [facility] [address] Performing Lab: [facility] [address] CREATININE 0.7 mg/dL 0.7-1.2 UREA NITROGEN 17 [...] >90 >60 Jun 21, 2024 06:48 PM [facility] URINALYSIS Specimen Type: URINE No comment entered. Ordering Provider: DELIA MARTINEZ Report Released Date/Time: Jun 21, 2024 05:45 PM Reporting Lab: [facility] [address] Performing Lab: [facility] [address] URINE COLOR YELLOW SPECIFIC GRAVITY 1.041 H [...] 500 NEGATIVE Jun 21, 2024 05:34 PM [facility] POC CREATININE Specimen Type: BLOOD No comment entered. Ordering Provider: DELIA MARTINEZ Report Released Date/Time: Jun 21, 2024 06:07 PM Reporting Lab: [facility] [address] Performing Lab: [facility] [address] POC CREATININE 1.1 mg/dL 0.6-1.3 Jun 21, 2024 05:30 PM [facility] POC ABG/LACTATE Specimen Type: VENOUS BLOOD No comment entered. Ordering Provider: DELIA MARTINEZ Report Released Date/Time: Jun 21, 2024 06:07 PM Reporting Lab: [facility] [address] Performing Lab: [facility] [address] POC PH 7.470 H 7.31-7.41 POC PCO2 31.2 mm[Hg] L 41.00-51 .0 0 POC PO2 46 mm[Hg] H 35.0-40.0 POC TCO2 24 mmol/L 24.0-29.0 POC HCO3 22.7 mmol/L L 23.0-28.0 POC BE ECT -1 mmol/L POC SO2 85 H 70-75 POC LACTATE 1.85 mmol/L 0.90-1.70 Jun 21, 2024 05:24 PM [facility] PROTHROMBIN TIME/INR Specimen Type: PLASMA No comment entered. Ordering Provider: DELIA MARTINEZ Report Released Date/Time: Jun 21, 2024 05:30 PM Reporting Lab: [facility] [address] Performing Lab: [facility] [address] .INR 1.2 H 0.8-1.1 .PT 13.9 s H 9.4-12.5 Jun 21, 2024 05:24 PM [facility] LIPASE Specimen Type: PLASMA No comment entered. Ordering Provider: DELIA MARTINEZ Report Released Date/Time: Jun 21, 2024 05:30 PM Reporting Lab: [facility] [address] Performing Lab: [facility] [address] LIPASE 32 U/L <60 Jun 21, 2024 05:24 PM [facility] EXTRA GOLD GEL TUBE Specimen Type: SERUM No comment entered. Ordering Provider: DELIA MARTINEZ Report Released Date/Time: Jun 21, 2024 05:41 PM Reporting Lab: [facility] [address] Performing Lab: [facility] [phone] EXTRA GOLD GEL TUBE RECEIVED Jun 21, 2024 05:24 PM [facility] COMPREHENSIVE METABOLIC PANEL+MG Specimen Type: PLASMA No comment entered. Ordering Provider: DELIA MARTINEZ Report Released Date/Time: Jun 21, 2024 05:30 PM Reporting Lab: [facility] [phone] Performing Lab: [facility] [address] CREATININE 0.9 mg/dL 0.7-1.2 UREA NITROGEN 29 [...] mg/dL <0.5 Jun 21, 2024 05:24 PM [facility] CBC & DIFF Specimen Type: BLOOD Comment: Manual Differential Performed Ordering Provider: DELIA MARTINEZ Report Released Date/Time: Jun 21, 2024 05:30 PM Reporting Lab: [facility] [address] Performing Lab: [facility] [address] WBC 21.3 H 4.0-11.0 RBC 5.48 4.60-6.20 [...] MORPHOLOGY PRESENT Jun 08, 2024 10:59 AM [facility] PROTHROMBIN TIME/INR Specimen Type: PLASMA No comment entered. Ordering Provider: MARYBETH POWELL Report Released Date/Time: May 28, 2024 09:02 AM Reporting Lab: [facility] [phone] Performing Lab: [facility] [address] .INR 1.0 0.8-1.1 .PT 11.8 s 9.4-12.5 Jun 08, 2024 10:59 AM [facility] HEMOGLOBIN A1C Specimen Type: BLOOD Comment: [...] May 28, 2024 09:02 AM Reporting Lab: [facility] [phone] Performing Lab: [facility] [phone] HEMOGLOBIN A1C 4.9 4.0-6.0 Jun 08, 2024 10:59 AM [facility] CBC Specimen Type: BLOOD No comment entered. Ordering Provider: MARYBETH POWELL Report Released Date/Time: May 28, 2024 09:02 AM Reporting Lab: [facility] [phone] Performing Lab: [facility] [address] WBC 16.1 H 4.0-11.0 RBC 5.02 4.60-6.20 HGB 16.0 g/dL 13.5-17.9 HCT 47.1 41.0-54.0 MCV 93.8 fL 80.0-100.0 MCH 31.9 pg 27.0-33.0 MCHC 34.0 g/dL 32.0-37.5 PLT 228 150-400 MPV 10.3 fL 9.1-13.0 RDW 14.6 H 11.5-14.5 Jun 08, 2024 10:59 AM [facility] BASIC METABOLIC PANEL+MG Specimen Type: PLASMA No comment entered. Ordering Provider: MARYBETH POWELL Report Released Date/Time: May 28, 2024 09:02 AM Reporting Lab: [facility] [phone] Performing Lab: [facility] [address] CREATININE 0.9 mg/dL 0.7-1.2 UREA NITROGEN 15 [...] PM 97.8 55 159/73 16 96 4 [facility] Jul 04, 2024 02:15 PM 56 138/64 16 97 4 [facility] Jul 04, 2024 12:40 PM 97.9 57 152/70 16 95 5 [facility] Jul 04, 2024 10:39 AM 59 132/74 16 96 4 [facility] Jul 04, 2024 08:45 AM 98 61 148/67 16 97 4 [facility] Social History: Smoking Status [...] [place] May 15, 2024 08:30 AM VA-TOBACCO QUIT 15 YRS OR MORE [facility] Tobacco Use History This section includes a history of the smoking, or tobacco-related health factors, that were collected on or before the date of the Encounter. The data comes from the [place] facility where the Encounter took place. Date/Time Smoking Status/Tobacco Use Comment F acility May 15, 2024 08:30 AM VA-TOBACCO QUIT 15 YRS OR MORE [facility] May 06, 2023 11:30 AM VA-TOBACCO FORMER USER [facility] May 06, 2023 11:30 AM VA-TOBACCO [...] VIEWS PA A ND LAT: FLACA WEAVER [id number] -1950 M Exm Date: JUL 08, 2024@10:09 Req Phys: KATELYNN PERSON Pat Loc: 2KG/07-08-2024@11:49 Img Loc: MAIN X-RAY Service: [place] [address] (Case 24 COMPLETE) CHEST 2 VIEWS PA AND LAT (RAD Detailed) CPT:47640 Reason for Study: Uptrending WBC, POD 5 Clinical History: IS NOT under investigation for COVID-19 or is COVID-19 negative POD 5, work up for uptrending wbc Responsible provider name and phone number to notify for critical findings if other than user placing the order and pager listed below: User placing orders pager: Katelynn Preson LAST CREATININE 0.9 (07/07/24) Report Status: Verified Date Reported: JUL 08, 2024 Date Verified: JUL 08, 2024 Desktop Specialist E-Sig: Report: CHEST 2 VIEWS PA AND [...] cardiopulmonary disease. READING PHYSICIAN: Sarbjit Vaughn M.D. -[phone] 07/08/2024 12:46 EST [facility] National Teleradiology Program [phone] (For Medical Practitioner Use Only) Attention Patients / Veterans: If you have questions or concerns about these test results, please contact your ordering provider or primary care team. Primary Interpreting Staff: RADIOLOGY,OUTSIDE SERVICE, Staff Physician / RADIOLOGY,OUTSIDE SERVICE [facility] Jul 08, 2024 10:[address] (AP) ABDOMEN/PE LVIS W CONTRAST: FLACA WEAVER [id number] -1950 M Exm Date: JUL 08, 2024@10:00 Req Phys: KATELYNN PERSON [facility] Loc: 2K/07-08-2024@12:07 Img Loc: CT IMAGING Service: [place] [address] (Case 22 COMPLETE) CT (AP) ABDOMEN/PELVIS W CONTRAST(CT Detailed) CPT:71332 Contrast Media : Non-ionic Iodinated Reason for [...] PLASMA .CREAT EGFR(CKD-E >90 Ref: >=60 Allergies: (Colp only) TERAZOSIN (Mar 13, 2015) Report Status: Verified Date Reported: JUL 08, 2024 Date Verified: JUL 08, 2024 Desktop Specialist E-Sig: Report: CT (AP) ABDOMEN/PELVIS W CONTRAST [...] as noted above READING PHYSICIAN: Celestino Blanc -[phone] 07/08/2024 13:04 EST [facility] National Teleradiology Program [phone] (For Medical Practitioner Use Only) Attention Patients / Veterans: If you have questions or concerns about these test results, please contact your ordering provider or primary care team. Primary Interpreting Staff: RADIOLOGY,OUTSIDE SERVICE, Staff Physician / RADIOLOGY,OUTSIDE SERVICE [facility] Jun 22, 2024 11:49 AM ABSCESS DRAIN PLAC EMENT PERITONEAL (P): FLACA WEAVER [id number] -1950 M Exm Date: JUN 22, 2024@11:49 Req Phys: ANGELA HOLDEN Loc: [facility]/06-22-2024@17:14 Im Loc: INTERVENTIONAL RADIOLOGY Service: [place] [address] (Case [id number] COMPLETE) IR PERITONEAL/RETROPERITONEAL PER(ANI Detailed) CPT:32641 Reason for Study: diverticulitis with abscess (Case 3570 COMPLETE) IR MOD SEDATION 10-22 MIN (ANI Detailed) CPT:10091 Clinical History: IS NOT under investigation for COVID-19 or is COVID-19 negative 73 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 please place abscess drain. Contact number for responsible provider who can be reached for any questions or notifications of critical findings: [phone] n/a LAST CREATININE 0.9 (06/21/24) Report Status: Verified Date Reported: JUN 22, 2024 Date Verified: JUN 22, 2024 Desktop Specialist E-Sig:/ES/LISA PENDLETON MD Report: PROCEDURES: Placement of [...] obtained. A pre-procedural Time-Out was performed per [facility] policy. The patient was placed in the supine position on the CT table. Preprocedural scan performed. The suprapubic region/lower abdominal wall was sterilely prepped and draped in the usual fashion.1% lidocaine without epinephrine was used for local anesthesia. Using real-time CT fluoroscopy, a 5 Senegalese momondoesis catheter was advanced into the collection in the left pelvis. A wire was coiled in the collection. The tract into the collection was dilated to accommodate the 12 Senegalese locking pigtail drainage catheter. There was return [...] Primary Interpreting Staff: LISA PENDLETON MD, RADIOLOGIST (Desktop Specialist) /JRT LISA PENDLETON [facility] Jun 22, 2024 11:[address] NEEDLE PLACEMEN T (P): FLACA WEAVER [id number] -1950 M Exm Date: JUN 22, 2024@11:48 Req Phys: ANGELA HOLDEN Loc: [facility]/06-22-2024@17:14 Img Loc: CT IMAGING Service: [place] [address] (Case [id number] COMPLETE) CT SCAN FOR NEEDLE PLACEMENT (CT Detailed) CPT:90526 Reason for Study: l pelvic abscess drain Clinical History: Report Status: Verified Date Reported: JUN 22, 2024 Date Verified: JUN 22, 2024 Desktop Specialist E-Sig:/ES/LISA PENDLETON MD Report: PROCEDURES: Placement of [...] obtained. A pre-procedural Time-Out was performed per [facility] policy. The patient was placed in the supine position on the CT table. Preprocedural scan performed. The suprapubic region/lower abdominal wall was sterilely prepped and draped in the usual fashion.1% lidocaine without epinephrine was used for local anesthesia. Using real-time CT fluoroscopy, a 5 Senegalese BAUNAT catheter was advanced into the collection in the left pelvis. A wire was coiled in the collection. The tract into the collection was dilated to accommodate the 12 Senegalese locking pigtail drainage catheter. There was return [...] Primary Interpreting Staff: LISA PENDLETON MD, RADIOLOGIST (Desktop Specialist) /JRT LISA PENDLETON [facility] Jun 21, 2024 06:[address] (AP) ABDOMEN/PE LVIS (P): FLACA WEAVER [id number] -1950 M Exm Date: JUN 21, 2024@18:09 Req Phys: DELIA MARTINEZ Loc: [facility] EM[facility]Y [facility]PT WALK-IN (Re Img Loc: CT IMAGING Service: [place] [address] (Case [id number] COMPLETE) CT (AP) ABDOMEN/PELVIS W CONTRAST(CT Detailed) CPT:49296 Contrast Media : Non-ionic Iodinated Reason for [...] PLASMA .CREAT EGFR(CKD-E >90 Ref: >=60 Allergies: (Colp only) TERAZOSIN (Mar 13, 2015) Defer to [...] 21, 2024 Date Verified: JUN 21, 2024 Desktop Specialist E-Sig:/ALEXI/CARLOS A CUNNINGHAM DO Report: EXAMINATION: CT [...] Interpreting Staff: CARLOS A CUNNINGHAM DO, RADIOLOGIST (Desktop Specialist) /CARLOS A ROWELL [facility] Pathology Reports: +/- 30 days of [...] COSIGNER: URGENCY: STATUS: COMPLETED $APHDR Reporting Lab: [facility] [CLIA# [id number]] [place] [address] - - - - - - - [...] - PATHOLOGY REPORT Accession No. [id number] - - - - - - - [...] - PATHOLOGY REPORT Accession No. [id number] - - - - - - - [...] Second circumferential surgical margin, en face; E-F: Cement Sprayer Helper diverticula; G: Cement Sprayer Helper section of mesentery; H: Random truck sales representative section of additional adipose tissue [...] One colonic tissue ring, bisected transversely. [facility] Microscopic examination performed. DIAGNOSIS: 1. Colon, sigmoid, sigmoidectomy-- - Diverticulosis with perforation and focal abscess formation 2. Colon, anastomotic rings, excision-- - Viable colonic mucosa without diagnostic abnormality /alexi/ EDUARDO PALOMARES MD STAFF PATHOLOGIST Signed Jul 06, 2024@10:40 Performing Laboratory: Surgical Pathology Report Performed By: [facility] [CLIA# [id number]] [place] [address] $FTR - - - - - - [...] - - FLACA WEAVER STANDARD FORM 515 ID:[id number] SEX:M :1950 AGE: 73 LOC:62803 ADM:Jun DX:DIVERTICULITIS PCP: Jatinder Cabrera /alexi/ EDUARDO PALOMARES MD STAFF PATHOLOGIST Signed: 07/06/2024 10:40 EDUARDO PALOMARES [facility] Jun 22, 2024 01:15 PM LR MICROBIOLOGY RE PORT: Reporting Lab: [facility] [CLIA# [id number]] [place] [address] Accession [UID]: [id number] [[id number]] Received: Jun 22, 2024@13:38 Collection sample: FLUID Collection date: Jun 22, 2024 13:15 Provider: ANGELA HOLDEN Comment on specimen: LLQ ABSCESS, RECEIVED IN ANAEROBIC TRANSPORT VIAL Test(s) ordered: GRAM STAIN.................... completed: Jun 22, 2024 15:03 CULTURE & SUSCEPTIBILITY...... completed: Jun 25, 2024 * BACTERIOLOGY FINAL REPORT => Jun 25, 2024 10:56 TECH CODE: [id number] GRAM STAIN: DIRECT SMEAR of specimen before [...] -=--=--=--=--=--=--=-- Performing Laboratory: Bacteriology Report Performed By: [facility] [CLIA# [id number]] [place] [address] [facility] Jun 22, 2024 01:15 PM LR MICROBIOLOGY RE PORT: Reporting Lab: [facility] [CLIA# [id number]] [place] [address] Accession [UID]: [id number] [[id number]] Received: Jun 22, 2024@13:38 Collection sample: FLUID Collection date: Jun 22, 2024 13:15 Provider: ANGELA HOLDEN Comment on specimen: LLQ ABSCESS, RECEIVED IN ANAEROBIC TRANSPORT VIAL Test(s) ordered: ANAEROBIC CULTURE............. completed: Jun 28, 2024 * BACTERIOLOGY FINAL REPORT => Jun 28, 2024 10:08 TECH CODE: [id number] CULTURE RESULTS: HEAVY GROWTH MIXED ANAEROBES Comment: including the followin+ Bacteroides fragilis 4+ Bacteroides vulgatus 4+ Clostridium innocuum Beta-lactamase negative 4+ Bacteroides caccae 4+ Parvimonas micra 4+ Bacteroides uniformis 4+ Gemella morbillorum 4+ anaerobic small, Gram Positive Rods 4+ Bacteroides thetaiotaomicron Standard workup is now complete. Bacteriology Remark(s): THIS REPORT IS FINAL =--=--=--=--=--=--=--=--=--= --=--=--=--=--=--=--=--=--=- -=--=--=--=--=--=--=-- Performing Laboratory: Bacteriology Report Performed By: [facility] [CLIA# [id number]] [place] [address] [facility] Jun 21, 2024 06:12 PM LR MICROBIOLOGY RE PORT: Reporting Lab: [facility] [CLIA# [id number]] [place] [address] Accession [UID]: [id number] [[id number]] Received: Jun 21, 2024@18:12 Collection sample: BLOOD [...] -=--=--=--=--=--=--=-- Performing Laboratory: Bacteriology Report Performed By: [facility] [CLIA# [id number]] [place] [address] [facility] Jun 21, 2024 06:11 PM LR MICROBIOLOGY RE PORT: Reporting Lab: [facility] [CLIA# [id number]] [place] [address] Accession [UID]: [id number] [[id number]] Received: Jun 21, 2024@18:11 Collection sample: BLOOD [...] -=--=--=--=--=--=--=-- Performing Laboratory: Bacteriology Report Performed By: [facility] [CLIA# [id number]] [place] [address] [facility] Jun 08, 2024 11:00 AM LR MICROBIOLOGY RE PORT: Reporting Lab: [facility] [CLIA# [id number]] [place] [address] Accession [UID]: [id number] [[id number]] Received: Jun 08, 2024@11:00 Collection sample: URINE Collection date: Jun 08, 2024 11:00 Provider: MARYBETH POWELL Comment on specimen: urine Test(s) ordered: CULTURE & SUSCEPTIBILITY...... completed: Jun 09, 2024 * BACTERIOLOGY FINAL REPORT => Jun 09, 2024 19:12 TECH CODE: [id number] CULTURE RESULTS: ESCHERICHIA COLI - Quantity: >100,000 [...] -=--=--=--=--=--=--=-- Performing Laboratory: Bacteriology Report Performed By: [facility] [CLIA# [id number]] [place] [address] [facility]
--- OUTSIDE RECORDS SUMMARY | 2024-07-16 07:17 | XMS_ITS | Encounter Summary ---
Author Name [facility] [place] [facility] [place] [facility] [place] Address [address] [place] [address] Care Team Providers Care Director Of Provider Relations Name Role Phone JATINDER CABRERA Primary Care [...] PART A Sep 29, 2016 PART A [id number] [phone] JUDY WEAVER PATIENT Selected Encounter This section includes the information on record at [place] for the Encounter. 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 Date/Time Primary/Secondary Diagnosis Diagnosis Name Provider Source Jul 06, 2024 02:15 PM PRIMARY Dvrtclos of intest, part unsp, w/o perf or abscess w/o bleed [facility]ONDO [facility] Plan of Treatment: Future Appointments (+ 6 months) and Future Tests (+/- 45 days) The Plan of Treatment section includes future care activities for the patient [facility] [place] [facility]. This section includes future appointments and future orders which are active, pending or scheduled. Future Appointments This section includes appointments that were scheduled to occur 6 months from the date of the Encounter, up to a maximum of 20 appointments. The data comes from all [facility] facilities. Appointment Date/Time Appointment Type Appointme nt Facility Name Jul 13, 2024 08:15 AM AMBULATORY - NONE [facility] Active, Pending, and [...] TYPE & SCREEN - LAB BLOOD [facility] Jun 08, 2024 09:57 AM Laboratory - Chemi stry Order URINALYSIS URINE WC [facility] Jun 12, 2024 12:00 AM Laboratory - Chemi stry Order BNP PLASMA SP [facility] Jun 21, 2024 05:45 PM Laboratory - Blood Bank Order TYPE & SCREEN - LAB BLOOD [facility] Jul 03, 2024 12:00 AM Laboratory - Blood Bank Order TYPE & SCREEN - LAB BLOOD [facility] Jul 16, 2024 12:00 AM Laboratory - Chemi stry Order CBC BLOOD SP [facility] Jul 17, 2024 12:00 AM Laboratory - Chemi stry Order BASIC METABOLIC PANEL+MG PLASMA SP [facility] Lab Results: +/- 30 days of [...] Range Comment Jul 10, 2024 07:16 AM [facility] PHOSPHORUS Specimen Type: PLASMA No comment entered. Ordering Provider: BALAJADIA,MAR IA S Report Released Date/Time: Jul 09, 2024 12:23 PM Reporting Lab: [facility] [address] Performing Lab: [facility] [address] PHOSPHORUS 3.0 mg/dL 2.3-4.3 Jul 10, 2024 07:16 AM [facility] BASIC METABOLIC PANEL+MG Specimen Type: PLASMA No comment entered. Ordering Provider: JUANCARLOS ECHOLS S Report Released Date/Time: Jul 09, 2024 12:23 PM Reporting Lab: [facility] [address] Performing Lab: [facility] [address] CREATININE 0.7 mg/dL 0.7-1.2 UREA NITROGEN 27 mg/dL H 8-26 GLUCOSE 104 mg/dL H 70-100 SODIUM 133 mmol/L L 136-145 POTASSIUM 4.3 mmol/L 3.5-5.1 CHLORIDE 102 mmol/L 98-107 CO2 19 mmol/L L 22-29 CALCIUM 10.1 mg/dL 8.4-10.2 MAGNESIUM 1.9 mg/dL 1.6-2.6 ANION GAP 12 mmol/L 5-15 .CREAT EGFR(CKD-EPI) >90 >60 Jul 10, 2024 07:15 AM [facility] CBC Specimen Type: BLOOD No comment entered. Ordering Provider: JUANCARLOS ECHOLS S Report Released Date/Time: Jul 09, 2024 12:23 PM Reporting Lab: [facility] [address] Performing Lab: [facility] [address] WBC 18.8 H 4.0-11.0 RBC 5.08 4.60-6.20 HGB 15.9 g/dL 13.5-17.9 HCT 46.8 41.0-54.0 MCV 92.1 fL 80.0-100.0 MCH 31.3 pg 27.0-33.0 MCHC 34.0 g/dL 32.0-37.5 PLT 479 H 150-400 MPV 10.2 fL 9.1-13.0 RDW 13.7 11.5-14.5 Jul 09, 2024 07:08 AM [facility] CBC Specimen Type: BLOOD No comment entered. Ordering Provider: QUYNH WEISS Report Released Date/Time: Jul 08, 2024 06:18 PM Reporting Lab: [facility] [address] Performing Lab: [facility] [address] WBC 15.3 H 4.0-11.0 RBC 4.91 4.60-6.20 HGB 15.1 g/dL 13.5-17.9 HCT 45.7 41.0-54.0 MCV 93.1 fL 80.0-100.0 MCH 30.8 pg 27.0-33.0 MCHC 33.0 g/dL 32.0-37.5 PLT 443 H 150-400 MPV 10.0 fL 9.1-13.0 RDW 13.5 11.5-14.5 Jul 08, 2024 10:50 AM [facility] URINALYSIS Specimen Type: URINE No comment entered. Ordering Provider: KATELYNN PERSON Report Released Date/Time: Jul 08, 2024 08:41 AM Reporting Lab: [facility] [address] Performing Lab: [facility] [address] URINE COLOR YELLOW SPECIFIC GRAVITY >1.050 H [...] NEGATIVE NEGATIVE Jul 08, 2024 09:54 AM [facility] CBC Specimen Type: BLOOD Comment: Specimen received in Lab at: 0952 Ordering Provider: JUANCARLOS ECHOLS Report Released Date/Time: Jul 07, 2024 04:49 PM Reporting Lab: [facility] [address] Performing Lab: [facility] [address] WBC 17.5 H 4.0-11.0 RBC 4.88 4.60-6.20 HGB 14.9 g/dL 13.5-17.9 HCT 45.7 41.0-54.0 MCV 93.6 fL 80.0-100.0 MCH 30.5 pg 27.0-33.0 MCHC 32.6 g/dL 32.0-37.5 PLT 472 H 150-400 MPV 10.2 fL 9.1-13.0 RDW 13.7 11.5-14.5 Jul 08, 2024 09:54 AM [facility] PHOSPHORUS Specimen Type: PLASMA Comment: Specimen received in Lab at: 0952 Ordering Provider: JUANCARLOS ECHOLS S Report Released Date/Time: Jul 07, 2024 04:49 PM Reporting Lab: [facility] [address] Performing Lab: [facility] [address] PHOSPHORUS 2.6 mg/dL 2.3-4.3 Jul 08, 2024 09:54 AM [facility] BASIC METABOLIC PANEL+MG Specimen Type: PLASMA Comment: Specimen received in Lab at: 0952 Ordering Provider: JUANCARLOS ECHOLS S Report Released Date/Time: Jul 07, 2024 04:49 PM Reporting Lab: [facility] [address] Performing Lab: [facility] [address] CREATININE 0.9 mg/dL 0.7-1.2 UREA NITROGEN 26 mg/dL 8-26 GLUCOSE 128 mg/dL H 70-100 SODIUM 134 mmol/L L 136-145 POTASSIUM 3.4 mmol/L L 3.5-5.1 CHLORIDE 100 mmol/L 98-107 CO2 24 mmol/L 22-29 CALCIUM 9.8 mg/dL 8.4-10.2 MAGNESIUM 1.8 mg/dL 1.6-2.6 ANION GAP 10 mmol/L 5-15 .CREAT EGFR(CKD-EPI) >90 >60 Jul 07, 2024 02:00 PM [facility] C DIFF PANEL Specimen Type: FECES No comment entered. Ordering Provider: JEVON ZAZUETA Report Released Date/Time: Jul 07, 2024 12:26 PM Reporting Lab: [facility] [address] Performing Lab: [facility] [address] C DIFF TOX B GENE PCR NEGATIVE Negative Jul 07, 2024 07:41 AM [facility] PHOSPHORUS Specimen Type: PLASMA No comment entered. Ordering Provider: JEVON ZAZUETA Report Released Date/Time: Jul 06, 2024 03:44 PM Reporting Lab: [facility] [address] Performing Lab: [facility] [address] PHOSPHORUS 3.1 mg/dL 2.3-4.3 Jul 07, 2024 07:41 AM [facility] BASIC METABOLIC PANEL+MG Specimen Type: PLASMA No comment entered. Ordering Provider: JEVON ZAZUETA Report Released Date/Time: Jul 06, 2024 03:44 PM Reporting Lab: [facility] [address] Performing Lab: [facility] [address] CREATININE 0.9 mg/dL 0.7-1.2 UREA NITROGEN 20 mg/dL 8-26 GLUCOSE 157 mg/dL H 70-100 SODIUM 136 mmol/L 136-145 POTASSIUM 3.7 mmol/L 3.5-5.1 CHLORIDE 102 mmol/L 98-107 CO2 21 mmol/L L 22-29 CALCIUM 9.8 mg/dL 8.4-10.2 MAGNESIUM 1.9 mg/dL 1.6-2.6 ANION GAP 13 mmol/L 5-15 .CREAT EGFR(CKD-EPI) >90 >60 Jul 07, 2024 07:40 AM [facility] CBC Specimen Type: BLOOD No comment entered. Ordering Provider: JEVON ZAZUETA Report Released Date/Time: Jul 06, 2024 03:44 PM Reporting Lab: [facility] [address] Performing Lab: [facility] [address] WBC 21.2 H 4.0-11.0 RBC 5.09 4.60-6.20 HGB 15.9 g/dL 13.5-17.9 HCT 48.3 41.0-54.0 MCV 94.9 fL 80.0-100.0 MCH 31.2 pg 27.0-33.0 MCHC 32.9 g/dL 32.0-37.5 PLT 500 H 150-400 MPV 10.3 fL 9.1-13.0 RDW 13.6 11.5-14.5 Jul 06, 2024 07:21 AM [facility] CBC Specimen Type: BLOOD No comment entered. Ordering Provider: JEVON ZAZUETA Report Released Date/Time: Jul 05, 2024 01:22 PM Reporting Lab: [facility] [address] Performing Lab: [facility] [address] WBC 18.0 H 4.0-11.0 RBC 4.83 4.60-6.20 HGB 14.6 g/dL 13.5-17.9 HCT 45.5 41.0-54.0 MCV 94.2 fL 80.0-100.0 MCH 30.2 pg 27.0-33.0 MCHC 32.1 g/dL 32.0-37.5 PLT 368 150-400 MPV 10.4 fL 9.1-13.0 RDW 13.6 11.5-14.5 Jul 06, 2024 07:21 AM [facility] PHOSPHORUS Specimen Type: PLASMA No comment entered. Ordering Provider: JEVON ZAZUETA Report Released Date/Time: Jul 05, 2024 01:22 PM Reporting Lab: [facility] [address] Performing Lab: [facility] [address] PHOSPHORUS 3.6 mg/dL 2.3-4.3 Jul 06, 2024 07:21 AM [facility] BASIC METABOLIC PANEL+MG Specimen Type: PLASMA No comment entered. Ordering Provider: JEVON ZAZUETA Report Released Date/Time: Jul 05, 2024 01:22 PM Reporting Lab: [facility] [address] Performing Lab: [facility] [address] CREATININE 0.7 mg/dL 0.7-1.2 UREA NITROGEN 12 mg/dL 8-26 GLUCOSE 108 mg/dL H 70-100 SODIUM 138 mmol/L 136-145 POTASSIUM 3.4 mmol/L L 3.5-5.1 CHLORIDE 104 mmol/L 98-107 CO2 20 mmol/L L 22-29 CALCIUM 9.3 mg/dL 8.4-10.2 MAGNESIUM 1.9 mg/dL 1.6-2.6 ANION GAP 14 mmol/L 5-15 .CREAT EGFR(CKD-EPI) >90 >60 Jul 05, 2024 07:17 AM [facility] MAGNESIUM Specimen Type: PLASMA No comment entered. Ordering Provider: BALAJADIA,MAR IA S Report Released Date/Time: Jul 04, 2024 09:39 AM Reporting Lab: [facility] [address] Performing Lab: [facility] [address] MAGNESIUM 2.0 mg/dL 1.6-2.6 Jul 05, 2024 07:17 AM [facility] PHOSPHORUS Specimen Type: PLASMA No comment entered. Ordering Provider: JUANCARLOS ECHOLS S Report Released Date/Time: Jul 04, 2024 09:39 AM Reporting Lab: [facility] [address] Performing Lab: [facility] [address] PHOSPHORUS 2.0 mg/dL L 2.3-4.3 Jul 05, 2024 07:17 AM [facility] BASIC METABOLIC PANEL+MG Specimen Type: PLASMA No comment entered. Ordering Provider: JUANCARLOS ECHOLS S Report Released Date/Time: Jul 04, 2024 09:39 AM Reporting Lab: [facility] [address] Performing Lab: [facility] [address] CREATININE 0.7 mg/dL 0.7-1.2 UREA NITROGEN 12 mg/dL 8-26 GLUCOSE 84 mg/dL 70-100 SODIUM 135 mmol/L L 136-145 POTASSIUM 3.8 mmol/L 3.5-5.1 CHLORIDE 104 mmol/L 98-107 CO2 24 mmol/L 22-29 CALCIUM 9.3 mg/dL 8.4-10.2 MAGNESIUM 2.0 mg/dL 1.6-2.6 ANION GAP 7 mmol/L 5-15 .CREAT EGFR(CKD-EPI) >90 >60 Jul 05, 2024 07:16 AM [facility] CBC Specimen Type: BLOOD No comment entered. Ordering Provider: JUANCARLOS ECHOLS S Report Released Date/Time: Jul 04, 2024 09:39 AM Reporting Lab: [facility] [address] Performing Lab: [facility] [address] WBC 18.3 H 4.0-11.0 RBC 4.49 L 4.60-6.20 HGB 14.1 g/dL 13.5-17.9 HCT 43.4 41.0-54.0 MCV 96.7 fL 80.0-100.0 MCH 31.4 pg 27.0-33.0 MCHC 32.5 g/dL 32.0-37.5 PLT 317 150-400 MPV 10.0 fL 9.1-13.0 RDW 13.9 11.5-14.5 Jul 04, 2024 07:17 AM [facility] PHOSPHORUS Specimen Type: PLASMA No comment entered. Ordering Provider: GABINO CAMERON Report Released Date/Time: Jul 03, 2024 06:31 PM Reporting Lab: [facility] [address] Performing Lab: [facility] [address] PHOSPHORUS 2.8 mg/dL 2.3-4.3 Jul 04, 2024 07:17 AM [facility] BASIC METABOLIC PANEL+MG Specimen Type: PLASMA No comment entered. Ordering Provider: GABINO CAMERON Report Released Date/Time: Jul 03, 2024 06:31 PM Reporting Lab: [facility] [address] Performing Lab: [facility] [address] CREATININE 0.7 mg/dL 0.7-1.2 UREA NITROGEN 16 mg/dL 8-26 GLUCOSE 129 mg/dL H 70-100 SODIUM 137 mmol/L 136-145 POTASSIUM 3.7 mmol/L 3.5-5.1 CHLORIDE 107 mmol/L 98-107 CO2 22 mmol/L 22-29 CALCIUM 9.0 mg/dL 8.4-10.2 MAGNESIUM 1.9 mg/dL 1.6-2.6 ANION GAP 8 mmol/L 5-15 .CREAT EGFR(CKD-EPI) >90 >60 Jul 04, 2024 07:16 AM [facility] CBC Specimen Type: BLOOD No comment entered. Ordering Provider: GABINO CAMERON Report Released Date/Time: Jul 03, 2024 06:31 PM Reporting Lab: [facility] [address] Performing Lab: [facility] [address] WBC 20.6 H 4.0-11.0 RBC 4.63 4.60-6.20 HGB 14.2 g/dL 13.5-17.9 HCT 43.4 41.0-54.0 MCV 93.7 fL 80.0-100.0 MCH 30.7 pg 27.0-33.0 MCHC 32.7 g/dL 32.0-37.5 PLT 329 150-400 MPV 10.4 fL 9.1-13.0 RDW 13.8 11.5-14.5 Jul 04, 2024 07:16 AM [facility] CBC & DIFF Specimen Type: BLOOD Comment: Manual Differential Performed Ordering Provider: GABINO CAMERON Report Released Date/Time: Jul 03, 2024 06:31 PM Reporting Lab: [facility] [address] Performing Lab: [facility] [address] WBC 20.6 H 4.0-11.0 RBC 4.63 4.60-6.20 [...] MORPHOLOGY PRESENT Jul 04, 2024 07:15 AM [facility] BNP Specimen Type: PLASMA No comment entered. Ordering Provider: GABINO CAMERON Report Released Date/Time: Jul 03, 2024 06:31 PM Reporting Lab: [facility] [address] Performing Lab: [facility] [address] BNP 292 pg/mL H <99 Jul 03, 2024 10:32 PM [facility] FINGERSTICK GLUCOSE Specimen Type: BLOOD Comment: Save Result Nurse Notified Ordering Provider: KATELYNN PERSON Report Released Date/Time: Jul 03, 2024 10:50 PM Reporting Lab: [facility] [address] Performing Lab: [facility] [address] FINGERSTICK GLUCOSE 126 mg/dL H 70-100 Jul 03, 2024 05:33 PM [facility] FINGERSTICK GLUCOSE Specimen Type: BLOOD Comment: Save Result Nurse Notified Ordering Provider: KATELYNN PERSON Report Released Date/Time: Jul 03, 2024 05:46 PM Reporting Lab: [facility] [address] Performing Lab: [facility] [address] FINGERSTICK GLUCOSE 141 mg/dL H 70-100 Jul 03, 2024 02:31 PM [facility] POC ABG/ELECTROLYTES Specimen Type: ARTERIAL BLOOD Comment: FIO2 = 97% Patient Temp: 36.0 C Sample Type = ARTERIAL Ordering Provider: MAZIN ARREDONDO Report Released Date/Time: Jul 03, 2024 01:48 PM Reporting Lab: [facility] [address] Performing Lab: [facility] [address] POC PH 7.387 7.35-7.45 POC PCO2 34.4 [...] H 80.0-105.0 Jul 03, 2024 01:05 PM [facility] POC ABG/ELECTROLYTES Specimen Type: ARTERIAL BLOOD Comment: FIO2 = 53% Patient Temp: 36.2 C Sample Type = ARTERIAL Ordering Provider: MAZIN ARREDONDO Report Released Date/Time: Jul 03, 2024 01:48 PM Reporting Lab: [facility] [address] Performing Lab: [facility] [address] POC PH 7.280 L 7.35-7.45 POC PCO2 [...] mm[Hg] 80.0-105.0 Jul 03, 2024 06:15 AM [facility] URINALYSIS Specimen Type: URINE No comment entered. Ordering Provider: MARYBETH POWELL Report Released Date/Time: Jun 12, 2024 04:01 PM Reporting Lab: [facility] [address] Performing Lab: [facility] [address] URINE COLOR YELLOW SPECIFIC GRAVITY 1.031 1.003-1.03 [...] 250 NEGATIVE Jul 03, 2024 06:13 AM [facility] CBC Specimen Type: BLOOD No comment entered. Ordering Provider: MARYBETH POWELL Report Released Date/Time: Jun 12, 2024 03:59 PM Reporting Lab: [facility] [address] Performing Lab: [facility] [address] WBC 15.8 H 4.0-11.0 RBC 5.11 4.60-6.20 HGB 16.1 g/dL 13.5-17.9 HCT 49.1 41.0-54.0 MCV 96.1 fL 80.0-100.0 MCH 31.5 pg 27.0-33.0 MCHC 32.8 g/dL 32.0-37.5 PLT 357 150-400 MPV 9.8 fL 9.1-13.0 RDW 13.7 11.5-14.5 Jun 24, 2024 09:50 AM [facility] BASIC METABOLIC PANEL+MG Specimen Type: PLASMA Comment: Specimen received in Lab at: 0948 Ordering Provider: JEVON ZAZUETA Report Released Date/Time: Jun 23, 2024 06:07 PM Reporting Lab: [facility] [address] Performing Lab: [facility] [address] CREATININE 0.8 mg/dL 0.7-1.2 UREA NITROGEN 13 mg/dL 8-26 GLUCOSE 135 mg/dL H 70-100 SODIUM 135 mmol/L L 136-145 POTASSIUM 3.6 mmol/L 3.5-5.1 CHLORIDE 103 mmol/L 98-107 CO2 24 mmol/L 22-29 CALCIUM 9.2 mg/dL 8.4-10.2 MAGNESIUM 1.9 mg/dL 1.6-2.6 ANION GAP 8 mmol/L 5-15 .CREAT EGFR(CKD-EPI) >90 >60 Jun 24, 2024 09:50 AM [facility] CBC Specimen Type: BLOOD Comment: Specimen received in Lab at: 0948 Ordering Provider: JEVON ZAZUETA Report Released Date/Time: Jun 23, 2024 06:07 PM Reporting Lab: [facility] [address] Performing Lab: [facility] [address] WBC 15.5 H 4.0-11.0 RBC 4.93 4.60-6.20 HGB 15.2 g/dL 13.5-17.9 HCT 46.5 41.0-54.0 MCV 94.3 fL 80.0-100.0 MCH 30.8 pg 27.0-33.0 MCHC 32.7 g/dL 32.0-37.5 PLT 223 150-400 MPV 11.4 fL 9.1-13.0 RDW 13.9 11.5-14.5 Jun 23, 2024 07:52 AM [facility] COMPREHENSIVE METABOLIC PANEL+MG Specimen Type: PLASMA No comment entered. Ordering Provider: JEVON ZAZUETA Report Released Date/Time: Jun 22, 2024 05:51 PM Reporting Lab: [facility] [address] Performing Lab: [facility] [address] CREATININE 0.7 mg/dL 0.7-1.2 UREA NITROGEN 16 [...] >90 >60 Jun 23, 2024 07:52 AM [facility] CBC & DIFF Specimen Type: BLOOD Comment: Automated Differential Performed Ordering Provider: JEVON ZAZUETA Report Released Date/Time: Jun 22, 2024 05:51 PM Reporting Lab: [facility] [address] Performing Lab: [facility] [address] WBC 14.9 H 4.0-11.0 RBC 5.09 4.60-6.20 [...] 0.1 0.0-0.1 Jun 22, 2024 06:10 PM [facility] CBC Specimen Type: BLOOD No comment entered. Ordering Provider: JEVON ZAZUETA Report Released Date/Time: Jun 22, 2024 05:51 PM Reporting Lab: [facility] [address] Performing Lab: [facility] [address] WBC 16.9 H 4.0-11.0 RBC 5.28 4.60-6.20 HGB 16.9 g/dL 13.5-17.9 HCT 50.4 41.0-54.0 MCV 95.5 fL 80.0-100.0 MCH 32.0 pg 27.0-33.0 MCHC 33.5 g/dL 32.0-37.5 PLT 223 150-400 MPV 10.9 fL 9.1-13.0 RDW 14.0 11.5-14.5 Jun 22, 2024 06:10 PM [facility] COMPREHENSIVE METABOLIC PANEL+MG Specimen Type: PLASMA No comment entered. Ordering Provider: JEVON ZAZUETA Report Released Date/Time: Jun 22, 2024 05:51 PM Reporting Lab: [facility] [address] Performing Lab: [facility] [address] CREATININE 0.7 mg/dL 0.7-1.2 UREA NITROGEN 17 [...] >90 >60 Jun 21, 2024 06:48 PM [facility] URINALYSIS Specimen Type: URINE No comment entered. Ordering Provider: DELIA MARTINEZ Report Released Date/Time: Jun 21, 2024 05:45 PM Reporting Lab: [facility] [address] Performing Lab: [facility] [address] URINE COLOR YELLOW SPECIFIC GRAVITY 1.041 H [...] 500 NEGATIVE Jun 21, 2024 05:34 PM [facility] POC CREATININE Specimen Type: BLOOD No comment entered. Ordering Provider: DELIA MARTINEZ Report Released Date/Time: Jun 21, 2024 06:07 PM Reporting Lab: [facility] [address] Performing Lab: [facility] [address] POC CREATININE 1.1 mg/dL 0.6-1.3 Jun 21, 2024 05:30 PM [facility] POC ABG/LACTATE Specimen Type: VENOUS BLOOD No comment entered. Ordering Provider: DELIA MARTINEZ Report Released Date/Time: Jun 21, 2024 06:07 PM Reporting Lab: [facility] [address] Performing Lab: [facility] [address] POC PH 7.470 H 7.31-7.41 POC PCO2 31.2 mm[Hg] L 41.00-51 .0 0 POC PO2 46 mm[Hg] H 35.0-40.0 POC TCO2 24 mmol/L 24.0-29.0 POC HCO3 22.7 mmol/L L 23.0-28.0 POC BE ECT -1 mmol/L POC SO2 85 H 70-75 POC LACTATE 1.85 mmol/L 0.90-1.70 Jun 21, 2024 05:24 PM [facility] PROTHROMBIN TIME/INR Specimen Type: PLASMA No comment entered. Ordering Provider: DELIA MARTINEZ Report Released Date/Time: Jun 21, 2024 05:30 PM Reporting Lab: [facility] [address] Performing Lab: [facility] [address] .INR 1.2 H 0.8-1.1 .PT 13.9 s H 9.4-12.5 Jun 21, 2024 05:24 PM [facility] LIPASE Specimen Type: PLASMA No comment entered. Ordering Provider: DELIA MARTINEZ Report Released Date/Time: Jun 21, 2024 05:30 PM Reporting Lab: [facility] [address] Performing Lab: [facility] [address] LIPASE 32 U/L <60 Jun 21, 2024 05:24 PM [facility] EXTRA GOLD GEL TUBE Specimen Type: SERUM No comment entered. Ordering Provider: DELIA MARTINEZ Report Released Date/Time: Jun 21, 2024 05:41 PM Reporting Lab: [facility] [address] Performing Lab: [facility] [address] EXTRA GOLD GEL TUBE RECEIVED Jun 21, 2024 05:24 PM [facility] COMPREHENSIVE METABOLIC PANEL+MG Specimen Type: PLASMA No comment entered. Ordering Provider: DELIA MARTINEZ Report Released Date/Time: Jun 21, 2024 05:30 PM Reporting Lab: [facility] [address] Performing Lab: [facility] [address] CREATININE 0.9 mg/dL 0.7-1.2 UREA NITROGEN 29 [...] mg/dL <0.5 Jun 21, 2024 05:24 PM [facility] CBC & DIFF Specimen Type: BLOOD Comment: Manual Differential Performed Ordering Provider: DELIA MARTINEZ Report Released Date/Time: Jun 21, 2024 05:30 PM Reporting Lab: [facility] [address] Performing Lab: [facility] [address] WBC 21.3 H 4.0-11.0 RBC 5.48 4.60-6.20 [...] MORPHOLOGY PRESENT Jun 08, 2024 10:59 AM [facility] PROTHROMBIN TIME/INR Specimen Type: PLASMA No comment entered. Ordering Provider: MARYBETH POWELL Report Released Date/Time: May 28, 2024 09:02 AM Reporting Lab: [facility] [address] Performing Lab: [facility] [id number] .INR 1.0 0.8-1.1 .PT 11.8 s 9.4-12.5 Jun 08, 2024 10:59 AM [facility] HEMOGLOBIN A1C Specimen Type: BLOOD Comment: [...] 2024 09:02 AM Reporting Lab: [facility] [id number] Performing Lab: [facility] [id number] HEMOGLOBIN A1C 4.9 4.0-6.0 Jun 08, 2024 10:59 AM [facility] CBC Specimen Type: BLOOD No comment entered. Ordering Provider: MARYBETH POWELL Report Released Date/Time: May 28, 2024 09:02 AM Reporting Lab: [facility] [id number] Performing Lab: [facility] [id number] WBC 16.1 H 4.0-11.0 RBC 5.02 4.60-6.20 HGB 16.0 g/dL 13.5-17.9 HCT 47.1 41.0-54.0 MCV 93.8 fL 80.0-100.0 MCH 31.9 pg 27.0-33.0 MCHC 34.0 g/dL 32.0-37.5 PLT 228 150-400 MPV 10.3 fL 9.1-13.0 RDW 14.6 H 11.5-14.5 Jun 08, 2024 10:59 AM [facility] BASIC METABOLIC PANEL+MG Specimen Type: PLASMA No comment entered. Ordering Provider: MARYBETH POWELL Report Released Date/Time: May 28, 2024 09:02 AM Reporting Lab: [facility] [phone] Performing Lab: [facility] [phone] CREATININE 0.9 mg/dL 0.7-1.2 UREA NITROGEN 15 [...] PM 97.5 92 132/64 18 96 4 [facility] Jul 06, 2024 01:00 PM 4 [facility] Jul 06, 2024 12:18 PM 136/88 [facility] Jul 06, 2024 12:09 PM 5 [facility] Jul 06, 2024 09:11 AM 97 93 162/80 18 96 5 [facility] Social History: Smoking [...] 15, 2024 08:30 AM [facility]-TOBACCO FORMER USER [facility] Tobacco Use History This section includes a history of the smoking, or tobacco-related health factors, that were collected on or before the date of the Encounter. The data comes from the [place] facility where the Encounter took place. Date/Time Smoking Status/Tobacco Use Comment F acility May 15, 2024 08:30 AM VA-TOBACCO QUIT 15 YRS OR MORE [facility] May 06, 2023 11:30 AM VA-TOBACCO FORMER USER [facility] May 06, 2023 11:30 AM VA-TOBACCO QUIT 15 YRS OR MORE [facility] Jun 04, 2022 09:00 AM VA-TOBACCO FORMER USER [facility] Jun 04, 2022 09:00 AM VA-TOBACCO QUIT 15 YRS OR MORE [facility] Jul 10, 2021 08:00 AM VA-TOBACCO FORMER USER [facility] Jul 10, 2021 08:00 AM VA-TOBACCO QUIT 5 TO < 15 YRS [facility] May 23, 2020 08:30 AM VA-TOBACCO FORMER USER [facility] May 23, 2020 08:30 AM VA-TOBACCO QUIT 5 TO < 15 YRS [facility] Mar 20, 2019 04:03 PM VA-TOBACCO FORMER USER [facility] Mar 20, 2019 04:03 PM VA-TOBACCO QUIT 5 TO < 15 YRS [facility] Mar 21, 2018 08:13 AM FORMER TOBACCO USER 7Y OR GREATE R [facility] Feb 24, 2017 09:24 AM FORMER TOBACCO USER 7Y OR GREATE R [facility] January 07, 2016 08:01 AM FORMER TOBACCO USE >1Y <7Y [facility] Feb 03, 2015 07:58 AM FORMER TOBACCO USE <1Y [facility] Feb 26, 2014 08:41 AM CURRENT TOBACCO USER [facility] May 13, 2011 01:45 PM CURRENT TOBACCO USER [facility] Advance Directives: All historical and current Section Date Range: From patient's date of to the date document was created. This section includes ALL of a patient's completed or amended PA Advance and Rescinded Directives. The entries below indicate that a directive exists for the patient, but an actual copy is not included with this document. The data comes from all PA facilities. Date Advance Directives Provider Source Mar [...] VIEWS PA A ND LAT: FLACA WEAVER [id number] -[id number] M Exm Date: JUL 08, 2024@10:09 Req Phys: KATELYNN PERSON Pat Loc: 2KG/07-08-2024@11:49 Img Loc: MAIN X-RAY Service: [place] [address] (Case [id number] COMPLETE) CHEST 2 VIEWS PA AND LAT (RAD Detailed) CPT:04113 Reason for Study: Uptrending WBC, POD 5 [...] 08, 2024 Date Verified: JUL 08, 2024 Funeral Home General Manager E-Sig: Report: CHEST 2 VIEWS PA AND [...] cardiopulmonary disease. READING PHYSICIAN: Sarbjit Vaughn M.D. -[phone] 07/08/2024 12:46 EST [facility] National Teleradiology Program [phone] (For Medical Practitioner Use Only) Attention Patients / Veterans: If you have questions or concerns about these test results, please contact your ordering provider or primary care team. Primary Interpreting Staff: RADIOLOGY,OUTSIDE SERVICE, Staff Physician / RADIOLOGY,OUTSIDE SERVICE [facility] Jul 08, 2024 10:[address] (AP) ABDOMEN/PE LVIS W CONTRAST: FLACA WEAVER [id number] -1950 M Exm Date: JUL 08, 2024@10:00 Req Phys: KATELYNN PERSON Loc: 2KG/07-08-2024@12:07 Img Loc: CT IMAGING Service: [place] [address] (Case [id number] COMPLETE) CT (AP) ABDOMEN/PELVIS W CONTRAST(CT Detailed) CPT:36419 Contrast Media : Non-ionic Iodinated Reason for [...] PLASMA .CREAT EGFR(CKD-E >90 Ref: >=60 Allergies: ([place] only) TERAZOSIN (Mar 13, 2015) Report Status: Verified Date Reported: JUL 08, 2024 Date Verified: JUL 08, 2024 [facility]eral Home General Manager E-Sig: Report: CT (AP) ABDOMEN/PELVIS W CONTRAST [...] as noted above READING PHYSICIAN: Celestino Blanc -[phone] 07/08/2024 13:04 EST [facility] National Teleradiology Program [phone] (For Medical Practitioner Use Only) Attention Patients / Veterans: If you have questions or concerns about these test results, please contact your ordering provider or primary care team. Primary Interpreting Staff: RADIOLOGY,OUTSIDE SERVICE, Staff Physician / RADIOLOGY,OUTSIDE SERVICE [facility] Jun 22, 2024 11:49 AM ABSCESS DRAIN PLAC EMENT PERITONEAL (P): FLACA WEAVER [id number] -1950 M Ex Date: JUN 22, 2024@11:49 Req Phys: ANGELA HOLDEN Loc: 2KC/06-22-2024@17:14 Img Loc: INTERVENTIONAL RADIOLOGY Service: [place] [address] (Case [id number] COMPLETE) IR PERITONEAL/RETROPERITONEAL PER(ANI Detailed) CPT:04755 Reason for Study: diverticulitis with abscess (Case 3570 COMPLETE) IR MOD SEDATION 10-22 MIN (ANI Detailed) CPT:03212 Clinical History: IS NOT under investigation for COVID-19 or is COVID-19 negative 73 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 please place abscess drain. Contact number for responsible provider who can be reached for any questions or notifications of critical findings: [phone] n/a LAST CREATININE 0.9 (06/21/24) Report Status: Verified Date Reported: JUN 22, 2024 Date Verified: JUN 22, 2024 [facility]eral Home General Manager E-Sig:/ES/LISA PENDLETON MD Report: PROCEDURES: Placement of [...] anesthesia. Using real-time CT fluoroscopy, a 5 [place] Pikum[employer] catheter was advanced into the collection in the left pelvis. A wire was coiled in the collection. The tract into the collection was dilated to accommodate the 12 [place] locking pigtail drainage catheter. There was return [...] Primary Interpreting Staff: LISA PENDLETON MD, RADIOLOGIST ([facility]eral [facility] General Manager) /LISA CARDONA [facility] Jun 22, 2024 11:[address] NEEDLE PLACEMEN T (P): FLACA WEAVER [id number] -1950 M Exm Date: JUN 22, 2024@11:48 Req Phys: ADINAANGELA Mcfarlane Amanda Loc: [facility]/06-22-2024@17:14 Img Loc: CT IMAGING Service: [place] [address] (Case [id number] COMPLETE) CT SCAN FOR NEEDLE PLACEMENT (CT Detailed) CPT:35997 Reason for Study: l pelvic abscess drain Clinical History: Report Status: Verified Date Reported: JUN 22, 2024 Date Verified: JUN 22, 2024 [facility]eral Home General Manager E-Sig:/ES/LISA PENDLETON MD Report: PROCEDURES: Placement of [...] anesthesia. Using real-time CT fluoroscopy, a 5 [place] [employer] catheter was advanced into the collection in the left pelvis. A wire was coiled in the collection. The tract into the collection was dilated to accommodate the 12 [place] locking pigtail drainage catheter. There was return [...] Primary Interpreting Staff: LISA PENDLETON MD, RADIOLOGIST ([facility]eral [facility] General Manager) /JRT LISA PENDLETON [facility] Jun 21, 2024 06:[address] (AP) ABDOMEN/PE LVIS (P): FLACA WEAVER [id number] -1950 M Exm Date: JUN 21, 2024@18:09 Req Phys: DELIA MARTINEZ Loc: [facility] (Re Img Loc: CT IMAGING Service: [place] [address] (Case [id number] COMPLETE) CT (AP) ABDOMEN/PELVIS W CONTRAST(CT Detailed) CPT:58763 Contrast Media : Non-ionic Iodinated Reason for [...] PLASMA .CREAT EGFR(CKD-E >90 Ref: >=60 Allergies: ([place] only) TERAZOSIN (Mar 13, 2015) Defer to [...] 21, 2024 Date Verified: JUN 21, 2024 [facility]eral Home General Manager E-Sig:/ES/CARLOS A CUNNINGHAM DO Report: EXAMINATION: CT [...] Interpreting Staff: CARLOS A CUNNINGHAM DO, RADIOLOGIST ([facility]eral Home General Manager) /CARLOS A ROWELL [facility] Pathology Reports: +/- 30 days of [...] COSIGNER: URGENCY: STATUS: COMPLETED $APHDR Reporting Lab: [facility] [CLIA# [id number]] [place] [address] - - - - - - - [...] - PATHOLOGY REPORT Accession No. [id number] - - - - - - - [...] - PATHOLOGY REPORT Accession No. [id number] - - - - - - - [...] Second circumferential surgical margin, en face; E-F: Product Safety Consultant diverticula; G: Product Safety Consultant section of mesentery; H: Random human resources hr representative section of additional adipose tissue fragment. [...] One colonic tissue ring, bisected transversely. SS. (D[facility]: Microscopic examination performed. DIAGNOSIS: 1. Colon, sigmoid, sigmoidectomy-- - Diverticulosis with perforation and focal abscess formation 2. Colon, anastomotic rings, excision-- - Viable colonic mucosa without diagnostic abnormality /alexi/ EDUARDO PALOMARES MD STAFF PATHOLOGIST Signed Jul 06, 2024@10:40 Performing Laboratory: Surgical Pathology Report Performed By: [facility] [CLIA# [id number]] [place] [address] $FTR - - - - - - [...] - - FLACA WEAVER STANDARD FORM 515 ID:[id number] SEX:M :1950 AGE: 73 LOC:97302 ADM:Jun DX:DIVERTICULITIS PCP: Jatinder Cabrera /alexi/ EDUARDO PALOMARES MD STAFF PATHOLOGIST Signed: 07/06/2024 10:40 EDUARDO PALOMARES [facility] Jun 22, 2024 01:15 PM LR MICROBIOLOGY RE PORT: Reporting Lab: [facility] [CLIA# [id number]] [place] [address] Accession [UID]: [id number] [[id number]] Received: Jun 22, 2024@13:38 Collection sample: FLUID Collection date: Jun 22, 2024 13:15 Provider: ANGELA HOLDEN Comment on specimen: LLQ ABSCESS, RECEIVED IN ANAEROBIC TRANSPORT VIAL Test(s) ordered: GRAM STAIN.................... completed: Jun 22, 2024 15:03 CULTURE & SUSCEPTIBILITY...... completed: Jun 25, 2024 * BACTERIOLOGY FINAL REPORT => Jun 25, 2024 10:56 TECH CODE: [id number] GRAM STAIN: DIRECT SMEAR of specimen before [...] -=--=--=--=--=--=--=-- Performing Laboratory: Bacteriology Report Performed By: [facility] [CLIA# [id number]] [place] [address] [facility] Jun 22, 2024 01:15 PM LR MICROBIOLOGY RE PORT: Reporting Lab: [facility] [CLIA# [id number]] [place] [address] Accession [UID]: [id number] [[id number]] Received: Jun 22, 2024@13:38 Collection sample: FLUID Collection date: Jun 22, 2024 13:15 Provider: ANGELA HOLDEN Comment on specimen: LLQ ABSCESS, RECEIVED IN ANAEROBIC TRANSPORT VIAL Test(s) ordered: ANAEROBIC CULTURE............. completed: Jun 28, 2024 * BACTERIOLOGY FINAL REPORT => Jun 28, 2024 10:08 TECH CODE: [id number] CULTURE RESULTS: HEAVY GROWTH MIXED ANAEROBES Comment: including the followin+ Bacteroides fragilis 4+ Bacteroides vulgatus 4+ Clostridium innocuum Beta-lactamase negative 4+ Bacteroides caccae 4+ Parvimonas micra 4+ Bacteroides uniformis 4+ Gemella morbillorum 4+ anaerobic small, Gram Positive Rods 4+ Bacteroides thetaiotaomicron Standard workup is now complete. Bacteriology Remark(s): THIS REPORT IS FINAL =--=--=--=--=--=--=--=--=--= --=--=--=--=--=--=--=--=--=- -=--=--=--=--=--=--=-- Performing Laboratory: Bacteriology Report Performed By: [facility] [CLIA# [id number]] [place] [address] [facility] Jun 21, 2024 06:12 PM LR MICROBIOLOGY RE PORT: Reporting Lab: [facility] [CLIA# [id number]] [place] [address] Accession [UID]: [id number] [[id number]] Received: Jun 21, 2024@18:12 Collection sample: BLOOD [...] -=--=--=--=--=--=--=-- Performing Laboratory: Bacteriology Report Performed By: [facility] [CLIA# [id number]] [place] [address] [facility] Jun 21, 2024 06:11 PM LR MICROBIOLOGY RE PORT: Reporting Lab: [facility] [CLIA# [id number]] [place] [address] Accession [UID]: [id number] [[id number]] Received: Jun 21, 2024@18:11 Collection sample: BLOOD [...] -=--=--=--=--=--=--=-- Performing Laboratory: Bacteriology Report Performed By: [facility] [CLIA# [id number]] [place] [address] [facility] Jun 08, 2024 11:00 AM LR MICROBIOLOGY RE PORT: Reporting Lab: [facility] [CLIA# [id number]] [place] [address] Accession [UID]: [id number] [[id number]] Received: Jun 08, 2024@11:00 Collection sample: URINE Collection date: Jun 08, 2024 11:00 Provider: MARYBETH POWELL Comment on specimen: urine Test(s) ordered: CULTURE & SUSCEPTIBILITY...... completed: Jun 09, 2024 * BACTERIOLOGY FINAL REPORT => Jun 09, 2024 19:12 TECH CODE: [id number] CULTURE RESULTS: ESCHERICHIA COLI - Quantity: >100,000 [...] -=--=--=--=--=--=--=-- Performing Laboratory: Bacteriology Report Performed By: [facility] [CLIA# [id number]] [place] [address] [facility] Encounter Notes: All associated encounter notes This section contains the clinical notes associated to the Encounter. Date/Time Encounter Note(s) Provider Source Jul 13, 2024 07:15 PM ACCOUNTING OF DISCLOSURES NOTE: LOCAL TITLE: STATE PRESCRIPTION DRUG MONITORING PROGRAM STANDARD TITLE: ACCOUNTING OF DISCLOSURES NOTE DATE OF NOTE: JUL 13, 2024@19:15:29 ENTRY DATE: JUL 13, 2024@19:15:29 AUTHOR: WENCESLAO ARREDONDO EXP COSIGNER: URGENCY: STATUS: COMPLETED This PDMP query was submitted by Wenceslao Arredondo MD. The clinical justification for this PDMP query is to review controlled substances prescribed outside of the [facility], and any additional information that may become available, as an important component of standard clinical care, and in accordance with [facility] policy. Patient information was shared with the PDMP [facility] [place]. No prescription(s) for controlled substances outside the [facility] were found in the last 90 days. /alexi/ WENCESLAO ARREDONDO MD STAFF SURGEON, COLON/RECTAL Signed: 07/13/2024 19:15 WENCESLAO ARREDONDO [facility] Jul 12, 2024 10:59 AM ACCOUNTING OF DISCLOSURES NOTE: LOCAL TITLE: STATE PRESCRIPTION DRUG MONITORING PROGRAM STANDARD TITLE: ACCOUNTING OF DISCLOSURES NOTE DATE OF NOTE: JUL 12, 2024@10:59 ENTRY DATE: JUL 12, 2024@10:59:48 AUTHOR: MARYBETH POWELL EXP COSIGNER: URGENCY: STATUS: COMPLETED Documentation of contact with State Prescription Drug Monitoring Program (PDMP) The clinical justification for this PDMP query is to review controlled substances prescribed outside of the [facility], and any additional information that may become available, as an important component of standard clinical care, and in accordance with [facility] policy. Patient information was shared with [facility]. [facility] findings: No prescription(s) for controlled substances outside the [facility] were found in the last 90 days. I reviewed the [facility] Stratification Tool for Opioid Risk Mitigation. /alexi/ MARYBETH POWELL MD STAFF SURGEON, COLON/RECTAL Signed: 07/12/2024 11:[address] [facility] Jul 06, 2024 08:36 AM COLON & RECTAL SURGERY NOTE: LOCAL TITLE: COLON-RECTAL INPT PROGRESS NOTE STANDARD TITLE: COLON & RECTAL SURGERY NOTE DATE OF NOTE: JUL 06, 2024@08:36 ENTRY DATE: JUL 06, 2024@08:36:17 AUTHOR: KATELYNN PERSON COSIGNER: URGENCY: STATUS: COMPLETED COLON-RECTAL INPT PROGRESS NOTE Has ADDENDA INPATIENT PROGRESS NOTE Subjective: Pt has been working with therapies. He was walking yesterday and earlier in the morning and was comfortably resting in bed. He has been tolerating diet but reports increased nausea but no emesis. Pain is controlled under current regiment. Objective: General: A&O, NAD Resp: NLB on RA CV: RRR by peripheral pulse Abd: Abd is distended but compressible, minimally TTP, no guarding, no rigidity, no signs of peritonitis - incisions are c/d/i - ostomy: dark green liquid slightly thickened output in bag - JUAN drain with s/s output MSK: Ext wwp Neuro: CN II-XII grossly intact, no focal deficits Active Medications: Active Inpatient Medications [...] to arouse and RR<8). Call provider or F[employer]DER AND NOTCHER. May repeat every 2-3 min up to 3 total doses. Administer INTRAMUSCULARLY if no IV access. 11) NITROGLYCERIN TAB,SUBLINGUAL 0.4MG SL QDAY PRN for ACTIVE chest pain 12) ONDANSETRON TAB 8MG PO Q6H PRN FOR NAUSEA ACTIVE 13) OXYCODONE TAB 5MG - 10MG PO Q4H PRN Sliding Scale - ACTIVE 1-5/10 pain 5MG, 6-10/10 pain 10 MG 14) PIPERACILLIN/TAZOBACTAM 3.375GM 50ML INJ in ACTIVE PIPERACIL/TAZOB 3.375GM PREMIX 50 ML INFUSE OVER 30 MINUTES For 4 days (07/03-07/07) IVPB Q6H 15) PROCHLORPERAZINE INJ 5MG/1ML IV Q6H PRN If zofran ACTIVE ineffective 16) REFRIGERATED NARCOTIC INJ SEE IV ORDER IV BAGGAGE AGENT ACTIVE THIS ORDER IS FOR NURSING PYXIS ACCESS AND PHARMACY INFORMATION ONLY DOCUMENT FIREARMS ASSEMBLY SUPERVISOR/DRIP ADMINISTRATION UNDER ORDER ON IV TAB 17) SALINE FLUSH INJ 10ML IV Q8H AFTER EACH USE, MINIMUM ACTIVE OF EVERY SHIFT. 18) SPIRONOLACTONE TAB 12.5MG PO QDAY ACTIVE Labs: - INR: INR 1.2 H PLASMA (06/21/24 17:24) - Complete Blood Count White count: WBC 18.0 H (07/06/24) Hemoglobin: HGB 14.6 (07/06/24) Hematocrit: HCT 45.5 (07/06/24) Platelets: PLT 368 (07/06/24) - Complete Metabolic Panel SODIUM 138 (07/06/24) POTASSIUM 3.4 L (07/06/24) CHLORIDE 104 (07/06/24) CO2 20 L (07/06/24) UREA NITROGEN 12 (07/06/24) CREATININE 0.7 (07/06/24) GLUCOSE 108 H (07/06/24) CALCIUM 9.3 (07/06/24) MAGNESIUM 1.9 (07/06/24) EGFR (04/01) 07/10/2021@0641 74 CREATININE EGFR (CKD-EPI) 07/06/2024@0530 >90 AST/SGOT 23 (06/23/24) ALT/SGPT 12 (06/23/24) ALK PHOSPHATASE 77 (06/23/24) ALBUMIN 3.7 (06/23/24) BILIRUBIN, TOTAL 0.8 (06/23/24) Imaging No recent imaging Assessment/Plan: 74yoM with h/o CAD, HLD, HTN, CKD, HFrEF, and known diverticulitis complicated by colovesicular fistula and abscess formation requiring a drain in March 2024 s/p drain removal and subsequent abscess formation with IR drain placement on 06/22. Patient is now s/p laparoscopic converted to open sigmoid colectomy, splenic flexure mobilization, diverting loop ileostomy, flex sig with bilateral ureteral stent placement with [facility] on 07/03/24. POD#2- pt is recovering appropriately. leukocytosis is down-trending (18.3 from 20). hemoglobin is stable at 14. tolerating fulls without emesis and only minimal nausea. Adequate urine output after mathew removed (1.1 cc/kg/hr since midnight). Cr 0.7. POD#3- pt is recovering appropriately. leukocytosis is down-trending (18 from 18.3, from 20). hemoglobin is stable at 14.1. Tolerating regular diet with some nausea. Adequate urine output (1100ml/24h). Cr 0.7. Plan: - Consults: Medicine co-management, WOCN for new stoma, PT/OT. Appreciate recommendations - Pain control: tylenol, robaxin, oxycodone, prn dilaudid - Zosyn x4d post-op (stop date: 07/07) - Cont to trend WBC - Keep drain for now - Ppx: DVT- lovenox - Diet: Regular - Dispo: cont inpt. pending stoma teaching, pending improved nausea controlled, pending IV antibiotic course completion. Patient discussed with [facility] residents who discussed with staff. /alexi/ KATELYNN PERSON PLASTIC/RESIDENT Signed: 07/06/2024 09:07 Receipt Acknowledged By: 07/06/2024 14:15 /alexi/ WENCESLAO ARREDONDO MD STAFF SURGEON, COLON/RECTAL 07/06/2024 ADDENDUM STATUS: COMPLETED I agree with the note by Dr Person. I saw and evaluated Mr Mckinney on 07/06/2024 and I agree with the assessment and plan. overall he is doing well and progressing nicely. He is having appropriate amounts of antegrade function via diverting loop ileostomy and pain is overall under control with a mix of IV and po pain medication. He says he is up in his chair and has been engaged with [facility] RN visits to learn how to care for his diverting loop ileostomy. he understands this will be reversed in 12 weeks or so as long as flex sig/GGE shows patent and healthy anastomosis. He has some nausea but still was able to eat a little. He does not like the food at the [facility] but knows that his can bring him whatever he wants to eat (low fiber). /alexi/ WENCESLAO ARREDONDO MD STAFF SURGEON, COLON/RECTAL Signed: 07/06/2024 14:17 KATELYNN PERSON [facility]
--- OUTSIDE RECORDS SUMMARY | 2024-07-16 07:17 | XMS_ITS | Encounter Summary ---
Author Name [facility] [facility] [place] Address [address] [place] [address] Care Team Providers Care Flame Gouger Name Role Phone JATINDER CABRERA Primary Care [...] PART A Sep 29, 2016 PART A [id number] [phone] JUDY WEAVER PATIENT Selected Encounter This section includes the information on record at [place] for the Encounter. Date/Time Encounter Type Encounter Description Reason Pro vider Source Jul 05, 2024 01:00 AM Inpatient Visit ADMIN PAT ACTIVTIES (CreeCT) SYSTEM,CIS-ARK IHE Encounter Template Text not used [...] 13, 2024 08:15 AM AMBULATORY - NONE [facility] Active, Pending, and Scheduled Orders This section includes a listing of several types of active, pending, and scheduled orders, including clinic medications orders, diagnostic test orders, procedure orders and consult orders; where the start date of the order is 45 days before the date of the Encounter or 45 days after the date of theEncounter. The data comes from all [facility]. Test Date/Time Test Type Test Details Facility Name May 28, 2024 12:00 AM Laboratory - Blood Bank Order TYPE & SCREEN - LAB BLOOD SP [facility] Jun 08, 2024 09:57 AM Laboratory - Chemi stry Order URINALYSIS URINE WC ONCE [facility] Jun 12, 2024 12:00 AM Laboratory - Chemi stry Order BNP PLASMA SP ONCE [facility] Jun 21, 2024 05:45 PM Laboratory - Blood Bank Order TYPE & SCREEN - LAB BLOOD WC [facility] Jul 03, 2024 12:00 AM Laboratory - Blood Bank Order TYPE & SCREEN - LAB BLOOD WC [facility] Jul 16, 2024 12:00 AM Laboratory - Chemi stry Order CBC BLOOD SP ONCE [facility] Jul 17, 2024 12:00 AM Laboratory - Chemi stry Order BASIC METABOLIC PANEL+MG PLASMA SP ONCE [facility] Lab Results: +/- 30 days [...] Range Comment Jul 10, 2024 07:16 AM [facility] PHOSPHORUS Specimen Type: PLASMA No comment entered. Ordering Provider: JUANCARLOS ECHOLS S Report Released Date/Time: Jul 09, 2024 12:23 PM Reporting Lab: [facility] [address] Performing Lab: [facility] [address] PHOSPHORUS 3.0 mg/dL 2.3-4.3 Jul 10, 2024 07:16 AM [facility] BASIC METABOLIC PANEL+MG Specimen Type: PLASMA No comment entered. Ordering Provider: JUANCARLOS ECHOLS S Report Released Date/Time: Jul 09, 2024 12:23 PM Reporting Lab: [facility] [address] Performing Lab: [facility] [address] CREATININE 0.7 mg/dL 0.7-1.2 UREA NITROGEN 27 mg/dL H 8-26 GLUCOSE 104 mg/dL H 70-100 SODIUM 133 mmol/L L 136-145 POTASSIUM 4.3 mmol/L 3.5-5.1 CHLORIDE 102 mmol/L 98-107 CO2 19 mmol/L L 22-29 CALCIUM 10.1 mg/dL 8.4-10.2 MAGNESIUM 1.9 mg/dL 1.6-2.6 ANION GAP 12 mmol/L 5-15 .CREAT EGFR(CKD-EPI) >90 >60 Jul 10, 2024 07:15 AM [facility] CBC Specimen Type: BLOOD No comment entered. Ordering Provider: JUANCARLOS ECHOLS S Report Released Date/Time: Jul 09, 2024 12:23 PM Reporting Lab: [facility] [address] Performing Lab: [facility] [address] WBC 18.8 H 4.0-11.0 RBC 5.08 4.60-6.20 HGB 15.9 g/dL 13.5-17.9 HCT 46.8 41.0-54.0 MCV 92.1 fL 80.0-100.0 MCH 31.3 pg 27.0-33.0 MCHC 34.0 g/dL 32.0-37.5 PLT 479 H 150-400 MPV 10.2 fL 9.1-13.0 RDW 13.7 11.5-14.5 Jul 09, 2024 07:08 AM [facility] CBC Specimen Type: BLOOD No comment entered. Ordering Provider: QUYNH WEISS Report Released Date/Time: Jul 08, 2024 06:18 PM Reporting Lab: [facility] [address] Performing Lab: [facility] [address] WBC 15.3 H 4.0-11.0 RBC 4.91 4.60-6.20 HGB 15.1 g/dL 13.5-17.9 HCT 45.7 41.0-54.0 MCV 93.1 fL 80.0-100.0 MCH 30.8 pg 27.0-33.0 MCHC 33.0 g/dL 32.0-37.5 PLT 443 H 150-400 MPV 10.0 fL 9.1-13.0 RDW 13.5 11.5-14.5 Jul 08, 2024 10:50 AM [facility] URINALYSIS Specimen Type: URINE No comment entered. Ordering Provider: KATELYNN PERSON Report Released Date/Time: Jul 08, 2024 08:41 AM Reporting Lab: [facility] [address] Performing Lab: [facility] [address] URINE COLOR YELLOW SPECIFIC GRAVITY >1.050 H [...] NEGATIVE NEGATIVE Jul 08, 2024 09:54 AM [facility] CBC Specimen Type: BLOOD Comment: Specimen received in Lab at: 0952 Ordering Provider: JUANCARLOS ECHOLS Report Released Date/Time: Jul 07, 2024 04:49 PM Reporting Lab: [facility] [address] Performing Lab: [facility] [address] WBC 17.5 H 4.0-11.0 RBC 4.88 4.60-6.20 HGB 14.9 g/dL 13.5-17.9 HCT 45.7 41.0-54.0 MCV 93.6 fL 80.0-100.0 MCH 30.5 pg 27.0-33.0 MCHC 32.6 g/dL 32.0-37.5 PLT 472 H 150-400 MPV 10.2 fL 9.1-13.0 RDW 13.7 11.5-14.5 Jul 08, 2024 09:54 AM [facility] PHOSPHORUS Specimen Type: PLASMA Comment: Specimen received in Lab at: 0952 Ordering Provider: JUANCARLOS ECHOLS S Report Released Date/Time: Jul 07, 2024 04:49 PM Reporting Lab: [facility] [address] Performing Lab: [facility] [address] PHOSPHORUS 2.6 mg/dL 2.3-4.3 Jul 08, 2024 09:54 AM [facility] BASIC METABOLIC PANEL+MG Specimen Type: PLASMA Comment: Specimen received in Lab at: 0952 Ordering Provider: JUANCARLOS ECHOLS S Report Released Date/Time: Jul 07, 2024 04:49 PM Reporting Lab: [facility] [address] Performing Lab: [facility] [address] CREATININE 0.9 mg/dL 0.7-1.2 UREA NITROGEN 26 mg/dL 8-26 GLUCOSE 128 mg/dL H 70-100 SODIUM 134 mmol/L L 136-145 POTASSIUM 3.4 mmol/L L 3.5-5.1 CHLORIDE 100 mmol/L 98-107 CO2 24 mmol/L 22-29 CALCIUM 9.8 mg/dL 8.4-10.2 MAGNESIUM 1.8 mg/dL 1.6-2.6 ANION GAP 10 mmol/L 5-15 .CREAT EGFR(CKD-EPI) >90 >60 Jul 07, 2024 02:00 PM [facility] C DIFF PANEL Specimen Type: FECES No comment entered. Ordering Provider: JEVON ZAZUETA Report Released Date/Time: Jul 07, 2024 12:26 PM Reporting Lab: [facility] [address] Performing Lab: [facility] [address] C DIFF TOX B GENE PCR NEGATIVE Negative Jul 07, 2024 07:41 AM [facility] PHOSPHORUS Specimen Type: PLASMA No comment entered. Ordering Provider: JEVON ZAZUETA Report Released Date/Time: Jul 06, 2024 03:44 PM Reporting Lab: [facility] [address] Performing Lab: [facility] [address] PHOSPHORUS 3.1 mg/dL 2.3-4.3 Jul 07, 2024 07:41 AM [facility] BASIC METABOLIC PANEL+MG Specimen Type: PLASMA No comment entered. Ordering Provider: JEVON ZAZUETA Report Released Date/Time: Jul 06, 2024 03:44 PM Reporting Lab: [facility] [address] Performing Lab: [facility] [address] CREATININE 0.9 mg/dL 0.7-1.2 UREA NITROGEN 20 mg/dL 8-26 GLUCOSE 157 mg/dL H 70-100 SODIUM 136 mmol/L 136-145 POTASSIUM 3.7 mmol/L 3.5-5.1 CHLORIDE 102 mmol/L 98-107 CO2 21 mmol/L L 22-29 CALCIUM 9.8 mg/dL 8.4-10.2 MAGNESIUM 1.9 mg/dL 1.6-2.6 ANION GAP 13 mmol/L 5-15 .CREAT EGFR(CKD-EPI) >90 >60 Jul 07, 2024 07:40 AM [facility] CBC Specimen Type: BLOOD No comment entered. Ordering Provider: JEVON ZAUZETA Report Released Date/Time: Jul 06, 2024 03:44 PM Reporting Lab: [facility] [address] Performing Lab: [facility] [address] WBC 21.2 H 4.0-11.0 RBC 5.09 4.60-6.20 HGB 15.9 g/dL 13.5-17.9 HCT 48.3 41.0-54.0 MCV 94.9 fL 80.0-100.0 MCH 31.2 pg 27.0-33.0 MCHC 32.9 g/dL 32.0-37.5 PLT 500 H 150-400 MPV 10.3 fL 9.1-13.0 RDW 13.6 11.5-14.5 Jul 06, 2024 07:21 AM [facility] CBC Specimen Type: BLOOD No comment entered. Ordering Provider: JEVON ZAZUETA Report Released Date/Time: Jul 05, 2024 01:22 PM Reporting Lab: [facility] [address] Performing Lab: [facility] [address] WBC 18.0 H 4.0-11.0 RBC 4.83 4.60-6.20 HGB 14.6 g/dL 13.5-17.9 HCT 45.5 41.0-54.0 MCV 94.2 fL 80.0-100.0 MCH 30.2 pg 27.0-33.0 MCHC 32.1 g/dL 32.0-37.5 PLT 368 150-400 MPV 10.4 fL 9.1-13.0 RDW 13.6 11.5-14.5 Jul 06, 2024 07:21 AM [facility] PHOSPHORUS Specimen Type: PLASMA No comment entered. Ordering Provider: JEVON ZAZUETA Report Released Date/Time: Jul 05, 2024 01:22 PM Reporting Lab: [facility] [address] Performing Lab: [facility] [address] PHOSPHORUS 3.6 mg/dL 2.3-4.3 Jul 06, 2024 07:21 AM [facility] BASIC METABOLIC PANEL+MG Specimen Type: PLASMA No comment entered. Ordering Provider: JEVON ZAZUETA Report Released Date/Time: Jul 05, 2024 01:22 PM Reporting Lab: [facility] [address] Performing Lab: [facility] [address] CREATININE 0.7 mg/dL 0.7-1.2 UREA NITROGEN 12 mg/dL 8-26 GLUCOSE 108 mg/dL H 70-100 SODIUM 138 mmol/L 136-145 POTASSIUM 3.4 mmol/L L 3.5-5.1 CHLORIDE 104 mmol/L 98-107 CO2 20 mmol/L L 22-29 CALCIUM 9.3 mg/dL 8.4-10.2 MAGNESIUM 1.9 mg/dL 1.6-2.6 ANION GAP 14 mmol/L 5-15 .CREAT EGFR(CKD-EPI) >90 >60 Jul 05, 2024 07:17 AM [facility] MAGNESIUM Specimen Type: PLASMA No comment entered. Ordering Provider: JUANCARLOS ECHOLS S Report Released Date/Time: Jul 04, 2024 09:39 AM Reporting Lab: [facility] [address] Performing Lab: [facility] [address] MAGNESIUM 2.0 mg/dL 1.6-2.6 Jul 05, 2024 07:17 AM [facility] PHOSPHORUS Specimen Type: PLASMA No comment entered. Ordering Provider: JUANCARLOS ECHOLS S Report Released Date/Time: Jul 04, 2024 09:39 AM Reporting Lab: [facility] [address] Performing Lab: [facility] [address] PHOSPHORUS 2.0 mg/dL L 2.3-4.3 Jul 05, 2024 07:17 AM [facility] BASIC METABOLIC PANEL+MG Specimen Type: PLASMA No comment entered. Ordering Provider: JUANCARLOS ECHOLS S Report Released Date/Time: Jul 04, 2024 09:39 AM Reporting Lab: [facility] [address] Performing Lab: [facility] [address] CREATININE 0.7 mg/dL 0.7-1.2 UREA NITROGEN 12 mg/dL 8-26 GLUCOSE 84 mg/dL 70-100 SODIUM 135 mmol/L L 136-145 POTASSIUM 3.8 mmol/L 3.5-5.1 CHLORIDE 104 mmol/L 98-107 CO2 24 mmol/L 22-29 CALCIUM 9.3 mg/dL 8.4-10.2 MAGNESIUM 2.0 mg/dL 1.6-2.6 ANION GAP 7 mmol/L 5-15 .CREAT EGFR(CKD-EPI) >90 >60 Jul 05, 2024 07:16 AM [facility] CBC Specimen Type: BLOOD No comment entered. Ordering Provider: JUANCARLOS ECHOLS S Report Released Date/Time: Jul 04, 2024 09:39 AM Reporting Lab: [facility] [address] Performing Lab: [facility] [address] WBC 18.3 H 4.0-11.0 RBC 4.49 L 4.60-6.20 HGB 14.1 g/dL 13.5-17.9 HCT 43.4 41.0-54.0 MCV 96.7 fL 80.0-100.0 MCH 31.4 pg 27.0-33.0 MCHC 32.5 g/dL 32.0-37.5 PLT 317 150-400 MPV 10.0 fL 9.1-13.0 RDW 13.9 11.5-14.5 Jul 04, 2024 07:17 AM [facility] BASIC METABOLIC PANEL+MG Specimen Type: PLASMA No comment entered. Ordering Provider: GABINO CAMERON Report Released Date/Time: Jul 03, 2024 06:31 PM Reporting Lab: [facility] [address] Performing Lab: [facility] [address] CREATININE 0.7 mg/dL 0.7-1.2 UREA NITROGEN 16 mg/dL 8-26 GLUCOSE 129 mg/dL H 70-100 SODIUM 137 mmol/L 136-145 POTASSIUM 3.7 mmol/L 3.5-5.1 CHLORIDE 107 mmol/L 98-107 CO2 22 mmol/L 22-29 CALCIUM 9.0 mg/dL 8.4-10.2 MAGNESIUM 1.9 mg/dL 1.6-2.6 ANION GAP 8 mmol/L 5-15 .CREAT EGFR(CKD-EPI) >90 >60 Jul 04, 2024 07:17 AM [facility] PHOSPHORUS Specimen Type: PLASMA No comment entered. Ordering Provider: GABINO CAMERON Report Released Date/Time: Jul 03, 2024 06:31 PM Reporting Lab: [facility] [address] Performing Lab: [facility] [address] PHOSPHORUS 2.8 mg/dL 2.3-4.3 Jul 04, 2024 07:16 AM [facility] CBC Specimen Type: BLOOD No comment entered. Ordering Provider: GABINO CAMERON Report Released Date/Time: Jul 03, 2024 06:31 PM Reporting Lab: [facility] [address] Performing Lab: [facility] [address] WBC 20.6 H 4.0-11.0 RBC 4.63 4.60-6.20 HGB 14.2 g/dL 13.5-17.9 HCT 43.4 41.0-54.0 MCV 93.7 fL 80.0-100.0 MCH 30.7 pg 27.0-33.0 MCHC 32.7 g/dL 32.0-37.5 PLT 329 150-400 MPV 10.4 fL 9.1-13.0 RDW 13.8 11.5-14.5 Jul 04, 2024 07:16 AM [facility] CBC & DIFF Specimen Type: BLOOD Comment: Manual Differential Performed Ordering Provider: GABINO CAMERON Report Released Date/Time: Jul 03, 2024 06:31 PM Reporting Lab: [facility] [address] Performing Lab: [facility] [address] WBC 20.6 H 4.0-11.0 RBC 4.63 4.60-6.20 [...] MORPHOLOGY PRESENT Jul 04, 2024 07:15 AM [facility] BNP Specimen Type: PLASMA No comment entered. Ordering Provider: GABINO CAMERON Report Released Date/Time: Jul 03, 2024 06:31 PM Reporting Lab: [facility] [address] Performing Lab: [facility] [address] BNP 292 pg/mL H <99 Jul 03, 2024 10:32 PM [facility] FINGERSTICK GLUCOSE Specimen Type: BLOOD Comment: Save Result Nurse Notified Ordering Provider: KATELYNN PERSON Report Released Date/Time: Jul 03, 2024 10:50 PM Reporting Lab: [facility] [address] Performing Lab: [facility] [address] FINGERSTICK GLUCOSE 126 mg/dL H 70-100 Jul 03, 2024 05:33 PM [facility] FINGERSTICK GLUCOSE Specimen Type: BLOOD Comment: Save Result Nurse Notified Ordering Provider: KATELYNN PERSON Report Released Date/Time: Jul 03, 2024 05:46 PM Reporting Lab: [facility] [address] Performing Lab: [facility] [address] FINGERSTICK GLUCOSE 141 mg/dL H 70-100 Jul 03, 2024 02:31 PM [facility] POC ABG/ELECTROLYTES Specimen Type: ARTERIAL BLOOD Comment: FIO2 = 97% Patient Temp: 36.0 C Sample Type = ARTERIAL Ordering Provider: MAZIN ARREDONDO Report Released Date/Time: Jul 03, 2024 01:48 PM Reporting Lab: [facility] [address] Performing Lab: [facility] [address] POC PH 7.387 7.35-7.45 POC PCO2 34.4 [...] H 80.0-105.0 Jul 03, 2024 01:05 PM [facility] POC ABG/ELECTROLYTES Specimen Type: ARTERIAL BLOOD Comment: FIO2 = 53% Patient Temp: 36.2 C Sample Type = ARTERIAL Ordering Provider: MAZIN ARREDONDO Report Released Date/Time: Jul 03, 2024 01:48 PM Reporting Lab: [facility] [address] Performing Lab: [facility] [address] POC PH 7.280 L 7.35-7.45 POC PCO2 [...] mm[Hg] 80.0-105.0 Jul 03, 2024 06:15 AM [facility] URINALYSIS Specimen Type: URINE No comment entered. Ordering Provider: MARYBETH POWELL Report Released Date/Time: Jun 12, 2024 04:01 PM Reporting Lab: [facility] [address] Performing Lab: [facility] [address] URINE COLOR YELLOW SPECIFIC GRAVITY 1.031 1.003-1.03 [...] 250 NEGATIVE Jul 03, 2024 06:13 AM [facility] CBC Specimen Type: BLOOD No comment entered. Ordering Provider: MARYBETH POWELL Report Released Date/Time: Jun 12, 2024 03:59 PM Reporting Lab: [facility] [address] Performing Lab: [facility] [address] WBC 15.8 H 4.0-11.0 RBC 5.11 4.60-6.20 HGB 16.1 g/dL 13.5-17.9 HCT 49.1 41.0-54.0 MCV 96.1 fL 80.0-100.0 MCH 31.5 pg 27.0-33.0 MCHC 32.8 g/dL 32.0-37.5 PLT 357 150-400 MPV 9.8 fL 9.1-13.0 RDW 13.7 11.5-14.5 Jun 24, 2024 09:50 AM [facility] BASIC METABOLIC PANEL+MG Specimen Type: PLASMA Comment: Specimen received in Lab at: 0948 Ordering Provider: JEVON ZAZUETA Report Released Date/Time: Jun 23, 2024 06:07 PM Reporting Lab: [facility] [address] Performing Lab: [facility] [address] CREATININE 0.8 mg/dL 0.7-1.2 UREA NITROGEN 13 mg/dL 8-26 GLUCOSE 135 mg/dL H 70-100 SODIUM 135 mmol/L L 136-145 POTASSIUM 3.6 mmol/L 3.5-5.1 CHLORIDE 103 mmol/L 98-107 CO2 24 mmol/L 22-29 CALCIUM 9.2 mg/dL 8.4-10.2 MAGNESIUM 1.9 mg/dL 1.6-2.6 ANION GAP 8 mmol/L 5-15 .CREAT EGFR(CKD-EPI) >90 >60 Jun 24, 2024 09:50 AM [facility] CBC Specimen Type: BLOOD Comment: Specimen received in Lab at: 0948 Ordering Provider: JEVON ZAZUETA Report Released Date/Time: Jun 23, 2024 06:07 PM Reporting Lab: [facility] [address] Performing Lab: [facility] [address] WBC 15.5 H 4.0-11.0 RBC 4.93 4.60-6.20 HGB 15.2 g/dL 13.5-17.9 HCT 46.5 41.0-54.0 MCV 94.3 fL 80.0-100.0 MCH 30.8 pg 27.0-33.0 MCHC 32.7 g/dL 32.0-37.5 PLT 223 150-400 MPV 11.4 fL 9.1-13.0 RDW 13.9 11.5-14.5 Jun 23, 2024 07:52 AM [facility] COMPREHENSIVE METABOLIC PANEL+MG Specimen Type: PLASMA No comment entered. Ordering Provider: JEVON ZAZUETA Report Released Date/Time: Jun 22, 2024 05:51 PM Reporting Lab: [facility] [address] Performing Lab: [facility] [address] CREATININE 0.7 mg/dL 0.7-1.2 UREA NITROGEN 16 [...] >90 >60 Jun 23, 2024 07:52 AM [facility] CBC & DIFF Specimen Type: BLOOD Comment: Automated Differential Performed Ordering Provider: JEVON ZAZUETA Report Released Date/Time: Jun 22, 2024 05:51 PM Reporting Lab: [facility] [address] Performing Lab: [facility] [address] WBC 14.9 H 4.0-11.0 RBC 5.09 4.60-6.20 [...] 0.1 0.0-0.1 Jun 22, 2024 06:10 PM [facility] CBC Specimen Type: BLOOD No comment entered. Ordering Provider: JEVON ZAZUETA Report Released Date/Time: Jun 22, 2024 05:51 PM Reporting Lab: [facility] [address] Performing Lab: [facility] [address] WBC 16.9 H 4.0-11.0 RBC 5.28 4.60-6.20 HGB 16.9 g/dL 13.5-17.9 HCT 50.4 41.0-54.0 MCV 95.5 fL 80.0-100.0 MCH 32.0 pg 27.0-33.0 MCHC 33.5 g/dL 32.0-37.5 PLT 223 150-400 MPV 10.9 fL 9.1-13.0 RDW 14.0 11.5-14.5 Jun 22, 2024 06:10 PM [facility] COMPREHENSIVE METABOLIC PANEL+MG Specimen Type: PLASMA No comment entered. Ordering Provider: JEVON ZAZUETA Report Released Date/Time: Jun 22, 2024 05:51 PM Reporting Lab: [facility] [address] Performing Lab: [facility] [address] CREATININE 0.7 mg/dL 0.7-1.2 UREA NITROGEN 17 [...] >90 >60 Jun 21, 2024 06:48 PM [facility] URINALYSIS Specimen Type: URINE No comment entered. Ordering Provider: DELIA MARTINEZ Report Released Date/Time: Jun 21, 2024 05:45 PM Reporting Lab: [facility] [address] Performing Lab: [facility] [address] URINE COLOR YELLOW SPECIFIC GRAVITY 1.041 H [...] 500 NEGATIVE Jun 21, 2024 05:34 PM [facility] POC CREATININE Specimen Type: BLOOD No comment entered. Ordering Provider: DELIA MARTINEZ Report Released Date/Time: Jun 21, 2024 06:07 PM Reporting Lab: [facility] [address] Performing Lab: [facility] [address] POC CREATININE 1.1 mg/dL 0.6-1.3 Jun 21, 2024 05:30 PM [facility] POC ABG/LACTATE Specimen Type: VENOUS BLOOD No comment entered. Ordering Provider: DELIA MARTINEZ Report Released Date/Time: Jun 21, 2024 06:07 PM Reporting Lab: [facility] [address] Performing Lab: [facility] [address] POC PH 7.470 H 7.31-7.41 POC PCO2 31.2 mm[Hg] L 41.00-51 .0 0 POC PO2 46 mm[Hg] H 35.0-40.0 POC TCO2 24 mmol/L 24.0-29.0 POC HCO3 22.7 mmol/L L 23.0-28.0 POC BE ECT -1 mmol/L POC SO2 85 H 70-75 POC LACTATE 1.85 mmol/L 0.90-1.70 Jun 21, 2024 05:24 PM [facility] PROTHROMBIN TIME/INR Specimen Type: PLASMA No comment entered. Ordering Provider: DELIA MARTINEZ Report Released Date/Time: Jun 21, 2024 05:30 PM Reporting Lab: [facility] [address] Performing Lab: [facility] [address] .INR 1.2 H 0.8-1.1 .PT 13.9 s H 9.4-12.5 Jun 21, 2024 05:24 PM [facility] LIPASE Specimen Type: PLASMA No comment entered. Ordering Provider: DELIA MARTINEZ Report Released Date/Time: Jun 21, 2024 05:30 PM Reporting Lab: [facility] [address] Performing Lab: [facility] [address] LIPASE 32 U/L <60 Jun 21, 2024 05:24 PM [facility] EXTRA GOLD GEL TUBE Specimen Type: SERUM No comment entered. Ordering Provider: DELIA MARTINEZ Report Released Date/Time: Jun 21, 2024 05:41 PM Reporting Lab: [facility] [address] Performing Lab: [facility] [address] EXTRA GOLD GEL TUBE RECEIVED Jun 21, 2024 05:24 PM [facility] COMPREHENSIVE METABOLIC PANEL+MG Specimen Type: PLASMA No comment entered. Ordering Provider: DELIA MARTINEZ Report Released Date/Time: Jun 21, 2024 05:30 PM Reporting Lab: [facility] [address] Performing Lab: [facility] [address] CREATININE 0.9 mg/dL 0.7-1.2 UREA NITROGEN 29 [...] mg/dL <0.5 Jun 21, 2024 05:24 PM [facility] CBC & DIFF Specimen Type: BLOOD Comment: Manual Differential Performed Ordering Provider: DELIA MARTINEZ Report Released Date/Time: Jun 21, 2024 05:30 PM Reporting Lab: [facility] [address] Performing Lab: [facility] [address] WBC 21.3 H 4.0-11.0 RBC 5.48 4.60-6.20 [...] MORPHOLOGY PRESENT Jun 08, 2024 10:59 AM [facility] PROTHROMBIN TIME/INR Specimen Type: PLASMA No comment entered. Ordering Provider: MARYBETH POWELL Report Released Date/Time: May 28, 2024 09:02 AM Reporting Lab: [facility] [address] Performing Lab: [facility] [address] .INR 1.0 0.8-1.1 .PT 11.8 s 9.4-12.5 Jun 08, 2024 10:59 AM [facility] HEMOGLOBIN A1C Specimen Type: BLOOD Comment: [...] May 28, 2024 09:02 AM Reporting Lab: [facility] [address] Performing Lab: [facility] [address] HEMOGLOBIN A1C 4.9 4.0-6.0 Jun 08, 2024 10:59 AM [facility] CBC Specimen Type: BLOOD No comment entered. Ordering Provider: MARYBETH POWELL Report Released Date/Time: May 28, 2024 09:02 AM Reporting Lab: [facility] [address] Performing Lab: [facility] [address] WBC 16.1 H 4.0-11.0 RBC 5.02 4.60-6.20 HGB 16.0 g/dL 13.5-17.9 HCT 47.1 41.0-54.0 MCV 93.8 fL 80.0-100.0 MCH 31.9 pg 27.0-33.0 MCHC 34.0 g/dL 32.0-37.5 PLT 228 150-400 MPV 10.3 fL 9.1-13.0 RDW 14.6 H 11.5-14.5 Jun 08, 2024 10:59 AM [facility] BASIC METABOLIC PANEL+MG Specimen Type: PLASMA No comment entered. Ordering Provider: MARYBETH POWELL Report Released Date/Time: May 28, 2024 09:02 AM Reporting Lab: [facility] [address] Performing Lab: [facility] [address] CREATININE 0.9 mg/dL 0.7-1.2 UREA NITROGEN 15 [...] Source Jul 05, 2024 08:50 PM 7 [facility] Jul 05, 2024 05:00 PM 6 [facility] Jul 05, 2024 04:58 PM 7 [facility] Jul 05, 2024 04:51 PM 98.5 97 147/88 16 95 7 [facility] Jul 05, 2024 03:20 PM 5 [facility] Social History: Smoking Status (Most [...] 15, 2024 08:30 AM VA-[facility]BACCO FORMER USER [facility] Tobacco [...] QUIT 15 YRS OR MORE [facility] May 06, 2023 11:30 AM VA-TOBACCO FORMER USER [facility] May 06, 2023 11:30 AM VA-TOBACCO [...] this document. The data comes from all [facility]. Date Advance Directives Provider Source Mar [...] VIEWS PA A ND LAT: FLACA WEAVER [id number] -[id number] M Exm Date: JUL 08, 2024@10:09 Req Phys: KATELYNN PERSON Loc: 2KG07-08-2024@11:49 Img Loc: MAIN X-RAY Service: [facility] [place] [address] (Case 24 COMPLETE) CHEST 2 VIEWS PA AND LAT (RAD Detailed) CPT:09605 Reason for Study: Uptrending WBC, POD 5 [...] 08, 2024 Date Verified: JUL 08, 2024 Trap Operator E-Sig: Report: CHEST 2 VIEWS PA AND LAT HISTORY: Uptrending WBC, POD 5 COMPARISON: CT chest 11/12/2022 TECHNIQUE: Frontal and lateral views of the chest, submitted to the [place] [facility] ([facility]) for interpretation. FINDINGS: Lungs: Clear. No focal consolidation. No pulmonary edema. Pleura: No pleural effusion or pneumothorax. Mediastinum: Normal size and contour. Bones: Unremarkable. Impression: No acute cardiopulmonary disease. READING PHYSICIAN: Sarbjit Vaughn M.D. -[phone] 07/08/2024 12:46 EST [facility] National Teleradiology Program [phone] (For Medical Practitioner Use Only) Attention Patients / Veterans: If you have questions or concerns about these test results, please contact your ordering provider or primary care team. Primary Interpreting Staff: RADIOLOGY,OUTSIDE SERVICE, Staff Physician / RADIOLOGY,OUTSIDE SERVICE [facility] Jul 08, 2024 10:[address] (AP) ABDOMEN/PE LVIS W CONTRAST: FLACA WEAVER [id number] -1950 M Ex Date: JUL 08, 2024@10:00 Req Phys: KATELYNN PERSON Pat Loc: G07-08-2024@12:07 Img Loc: CT IMAGING Service: [facility] [place] [address] (Case [id number] COMPLETE) CT (AP) ABDOMEN/PELVIS W CONTRAST(CT Detailed) CPT:07559 Contrast Media : Non-ionic Iodinated Reason for [...] PLASMA .CREAT EGFR(CKD-E >90 Ref: >=60 Allergies: ([employer] only) TERAZOSIN (Mar 13, 2015) Report Status: Verified Date Reported: JUL 08, 2024 Date Verified: JUL 08, 2024 Trap Operator E-Sig: Report: CT (AP) ABDOMEN/PELVIS W CONTRAST HISTORY: POD 5, Uptrending WBC - Concern for Abscess/other infection COMPARISON: June 21, 2024 TECHNIQUE: CT abdomen and pelvis was performed after intravenous contrast. Axial, sagittal and coronal reformatted images. The study was performed at the local [place] facility and images were sent to the [facility] T[facility]iology [facility] ([facility]P) for interpretation. Number [...] as noted above READING PHYSICIAN: Celestino Blanc -[phone] 07/08/2024 13:04 [facility] [phone] (For Medical Practitioner Use Only) Attention Patients / Veterans: If you have questions or concerns about these test results, please contact your ordering provider or primary care team. Primary Interpreting Staff: RADIOLOGY,OUTSIDE SERVICE, Staff Physician / RADIOLOGY,OUTSIDE SERVICE [facility] Jun 22, 2024 11:49 AM ABSCESS DRAIN PLAC EMENT PERITONEAL (P): FLACA WEAVER [id number] -1950 M Exm Date: JUN 22, 2024@11:49 Req Phys: ANGELA HOLDEN Loc: [facility]06-22-2024@17:14 Img Loc: INTERVENTIONAL RADIOLOGY Service: [facility] [place] [address] (Case [id number] COMPLETE) IR PERITONEAL/RETROPERITONEAL PER(ANI Detailed) CPT:04398 Reason for Study: diverticulitis with abscess (Case 3570 COMPLETE) IR MOD SEDATION 10-22 MIN (ANI Detailed) CPT:06316 Clinical History: IS NOT under investigation for COVID-19 or is COVID-19 negative 73 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 please place abscess drain. Contact number for responsible provider who can be reached for any questions or notifications of critical findings: [phone] n/a LAST CREATININE 0.9 (06/21/24) Report Status: Verified Date Reported: JUN 22, 2024 Date Verified: JUN 22, 2024 Trap Operator E-Sig:/ES/LISA PENDLETON MD Report: PROCEDURES: Placement of [...] obtained. A pre-procedural Time-Out was performed per [facility] policy. The patient was placed in the supine position on the CT table. Preprocedural scan performed. The suprapubic region/lower abdominal wall was sterilely prepped and draped in the usual fashion.1% lidocaine without epinephrine was used for local anesthesia. Using real-time CT fluoroscopy, a 5 Czech Robotic Waresesis catheter was advanced into the collection in the left pelvis. A wire was coiled in the collection. The tract into the collection was dilated to accommodate the 12 Czech locking pigtail drainage catheter. There was return [...] Primary Interpreting Staff: LISA PENDLETON MD, RADIOLOGIST (Trap Operator) /JRLISA [facility] Jun 22, 2024 11:[address] NEEDLE PLACEMEN T (P): FLACA WEAVER [id number] -1950 M Exm Date: JUN 22, 2024@11:48 Req Phys: ANGELA HOLDEN Loc: [facility]/06-22-2024@17:14 Img Loc: CT IM[facility]ING [facility] [address] (Case [id number] COMPLETE) CT SCAN FOR NEEDLE PLACEMENT (CT Detailed) CPT:01541 Reason for Study: l pelvic abscess drain Clinical History: Report Status: Verified Date Reported: JUN 22, 2024 Date Verified: JUN 22, 2024 Trap Operator E-Sig:/ES/LISA PENDLETON MD Report: PROCEDURES: Placement of [...] obtained. A pre-procedural Time-Out was performed per [facility] policy. The patient was placed in the supine position on the CT table. Preprocedural scan performed. The suprapubic region/lower abdominal wall was sterilely prepped and draped in the usual fashion.1% lidocaine without epinephrine was used for local anesthesia. Using real-time CT fluoroscopy, a 5 Czech Robotic Waresesis catheter was advanced into the collection in the left pelvis. A wire was coiled in the collection. The tract into the collection was dilated to accommodate the 12 Czech locking pigtail drainage catheter. There was return [...] Primary Interpreting Staff: LISA PENDLETON MD, RADIOLOGIST (Trap Operator) /JRT LISA PENDLETON [facility] Jun 21, 2024 06:[address] (AP) ABDOMEN/PE LVIS (P): FLACA WEAVER [id number] -1950 M Exm Date: JUN 21, 2024@18:09 Req Phys: DELIA MARTINEZ Loc: [facility] EM[facility]PT WALK-IN (Re Img Loc: CT IMAGING Service: [place] [address] (Case [id number] COMPLETE) CT (AP) ABDOMEN/PELVIS W CONTRAST(CT Detailed) CPT:86634 Contrast Media : Non-ionic Iodinated Reason for [...] PLASMA .CREAT EGFR(CKD-E >90 Ref: >=60 Allergies: ([place]yce only) TERAZOSIN (Mar 13, 2015) Defer to [...] 21, 2024 Date Verified: JUN 21, 2024 Trap Operator E-Sig:/ALEXI/CARLOS A CUNNINGHAM DO Report: EXAMINATION: CT [...] Interpreting Staff: CARLOS A CUNNINGHAM DO, RADIOLOGIST (Trap Operator) /CARLOS A ROWELL [facility] Pathology Reports: +/- 30 days [...] COSIGNER: URGENCY: STATUS: COMPLETED $APHDR Reporting Lab: [facility] [CLIA# [id number]] [place] [address] - - - - - - - [...] - PATHOLOGY REPORT Accession No. [id number] - - - - - - - [...] - PATHOLOGY REPORT Accession No. [id number] - - - - - - - [...] Second circumferential surgical margin, en face; E-F: Humane Agent diverticula; G: Humane Agent section of mesentery; H: Random manufacturers representative section of additional adipose tissue fragment. [...] Performing Laboratory: Surgical Pathology Report Performed By: [facility] [CLIA# [id number]] [place] [address] $FTR - - - - - - [...] - - FLACA WEAVER STANDARD FORM 515 ID:[id number] SEX:M :1950 AGE: 73 LOC:[id number] ADM:Jun DX:DIVERTICULITIS PCP: Jatinder Cabrera /alexi/ EDUARDO PALOMARES MD STAFF PATHOLOGIST Signed: 07/06/2024 10:40 EUDARDO PALOMARES [facility] Jun 22, 2024 01:15 PM LR MICROBIOLOGY RE PORT: Reporting Lab: [facility] [CLIA# [id number]] [place] [address] Accession [UID]: [id number] [[id number]] Received: Jun 22, 2024@13:38 Collection sample: FLUID Collection date: Jun 22, 2024 13:15 Provider: ANGELA HOLDEN Comment on specimen: LLQ ABSCESS, RECEIVED IN ANAEROBIC TRANSPORT VIAL Test(s) ordered: GRAM STAIN.................... completed: Jun 22, 2024 15:03 CULTURE & SUSCEPTIBILITY...... completed: Jun 25, 2024 * BACTERIOLOGY FINAL REPORT => Jun 25, 2024 10:56 TECH CODE: [id number] GRAM STAIN: DIRECT SMEAR of specimen before [...] -=--=--=--=--=--=--=-- Performing Laboratory: Bacteriology Report Performed By: [facility] [CLIA# [id number]] [place] [address] [facility] Jun 22, 2024 01:15 PM LR MICROBIOLOGY RE PORT: Reporting Lab: [facility] [CLIA# [id number]] [place] [address] Accession [UID]: [id number] [[id number]] Received: Jun 22, 2024@13:38 Collection sample: FLUID Collection date: Jun 22, 2024 13:15 Provider: ANGELA HOLDEN Comment on specimen: LLQ ABSCESS, RECEIVED IN ANAEROBIC TRANSPORT VIAL Test(s) ordered: ANAEROBIC CULTURE............. completed: Jun 28, 2024 * BACTERIOLOGY FINAL REPORT => Jun 28, 2024 10:08 TECH CODE: [id number] CULTURE RESULTS: HEAVY GROWTH MIXED ANAEROBES Comment: including the followin+ Bacteroides fragilis 4+ Bacteroides vulgatus 4+ Clostridium innocuum Beta-lactamase negative 4+ Bacteroides caccae 4+ Parvimonas micra 4+ Bacteroides uniformis 4+ Gemella morbillorum 4+ anaerobic small, Gram Positive Rods 4+ Bacteroides thetaiotaomicron Standard workup is now complete. Bacteriology Remark(s): THIS REPORT IS FINAL =--=--=--=--=--=--=--=--=--= --=--=--=--=--=--=--=--=--=- -=--=--=--=--=--=--=-- Performing Laboratory: Bacteriology Report Performed By: [facility] [CLIA# [id number]] [place] [address] [facility] Jun 21, 2024 06:12 PM LR MICROBIOLOGY RE PORT: Reporting Lab: [facility] [CLIA# [id number]] [place] [address] Accession [UID]: [id number] [[id number]] Received: Jun 21, 2024@18:12 Collection sample: BLOOD [...] -=--=--=--=--=--=--=-- Performing Laboratory: Bacteriology Report Performed By: [facility] [CLIA# [id number]] [place] [address] [facility] Jun 21, 2024 06:11 PM LR MICROBIOLOGY RE PORT: Reporting Lab: [facility] [CLIA# [id number]] [place] [address] Accession [UID]: [id number] [[id number]] Received: Jun 21, 2024@18:11 Collection sample: BLOOD [...] -=--=--=--=--=--=--=-- Performing Laboratory: Bacteriology Report Performed By: [facility] [CLIA# [id number]] [place] [address] [facility] Jun 08, 2024 11:00 AM LR MICROBIOLOGY RE PORT: Reporting Lab: [facility] [CLIA# [id number]] [place] [address] Accession [UID]: [id number] [[id number]] Received: Jun 08, 2024@11:00 Collection sample: URINE Collection date: Jun 08, 2024 11:00 Provider: MARYBETH POWELL Comment on specimen: urine Test(s) ordered: CULTURE & SUSCEPTIBILITY...... completed: Jun 09, 2024 * BACTERIOLOGY FINAL REPORT => Jun 09, 2024 19:12 TECH CODE: [id number] CULTURE RESULTS: ESCHERICHIA COLI - Quantity: >100,000 [...] -=--=--=--=--=--=--=-- Performing Laboratory: Bacteriology Report Performed By: [facility] [CLIA# [id number]] [place] [address] [facility] Encounter Notes: All associated encounter notes This section contains the clinical notes associated to the Encounter. Date/Time Encounter Note(s) Provider Source Jul 05, 2024 01:00 AM CRITICAL CARE UNIT NOTE: LOCAL TITLE: [facility] INPATIENT FLOWSHEET STANDARD TITLE: CRITICAL CARE UNIT NOTE DATE OF NOTE: JUL 05, 2024@01:00 ENTRY DATE: JUL 06, 2024@14:31:53 AUTHOR: SYSTEM,[employer] EXP COSIGNER: URGENCY: STATUS: COMPLETED This is a place aranda only. Please see [employer] to view document. /es/ [employer] SYSTEM ICU DOCUMENT IMPORT Signed: 07/06/2024 14:31 [employer]Picitup [facility] Jul 05, 2024 01:00 AM CRITICAL CARE UNIT NOTE: LOCAL TITLE: [facility] RESPIRATORY THERAPY FLOWSHEET STANDARD TITLE: CRITICAL CARE UNIT NOTE DATE OF NOTE: JUL 05, 2024@01:00 ENTRY DATE: JUL 06, 2024@15:00:40 AUTHOR: SYSTEM,[employer] EXP COSIGNER: URGENCY: STATUS: COMPLETED This is a place aranda only. Please see [employer] to view document. /es/ [employer] SYSTEM ICU DOCUMENT IMPORT Signed: 07/06/2024 15:00 [employer] [facility]
[2024-07-16 07:18] LABS: Lactate Sepsis w/Reflex* 3.9 mmol/L (0.5-1.9)
--- OUTSIDE RECORDS SUMMARY | 2024-07-16 07:18 | XMS_ITS ---
[place] DAILY HOSPITALIZATION DATA [facility] Encounter Summary Created on: July 16, 2024 MEG FLACADARCI LOBO : 1950 Sex: Male Author Name [facility] [facility] [place] Address [address] [place] [address] Care Team Providers Care Clearing Hand Name Role Phone JATINDER CABRERA Primary Care [...] PART A Sep 29, 2016 PART A [id number] [phone] JUDY WEAVER PATIENT Selected Encounter This section includes the information on record at [place] for the Encounter. Date/Time Encounter Type Encounter Description Reason Pro vider Source Jul 07, 2024 02:08 AM Inpatient Visit DAILY HOSPITALIZATION DATA ANGELA [...] 2024 08:15 AM AMBULATORY - NONE [facility] Active, Pending, and Scheduled Orders This section includes a listing of several types of active, pending, and scheduled orders, including clinic medications orders, diagnostic test orders, procedure orders and consult orders; where the start date of the order is 45 days before the date of the Encounter or 45 days after the date of theEncounter. The data comes from all [place] treatment facilities. Test Date/Time Test Type Test Details Facility Name May 28, 2024 12:00 AM Laboratory - Blood Bank Order TYPE & SCREEN - LAB BLOOD SP [facility] Jun 08, 2024 09:57 AM Laboratory - Chemi stry Order URINALYSIS URINE WC ONCE [facility] Jun 12, 2024 12:00 AM Laboratory - Chemi stry Order BNP PLASMA SP ONCE [facility] Jun 21, 2024 05:45 PM Laboratory - Blood Bank Order TYPE & SCREEN - LAB BLOOD WC [facility] Jul 03, 2024 12:00 AM Laboratory - Blood Bank Order TYPE & SCREEN - LAB BLOOD [facility] Jul 16, 2024 12:00 AM Laboratory - Chemi stry Order CBC BLOOD SP ONCE [facility] Jul 17, 2024 12:00 AM Laboratory - Chemi stry Order BASIC METABOLIC PANEL+MG PLASMA SP ONCE [facility] Lab Results: +/- 30 days of the encounter This section includes the Chemistry and Hematology Lab Results on record with [place] for the patient. Radiology Reports and Pathology Reports are provided separately, in subsequent sections. Lab Results This section contains the Chemistry/Hematology Results that were resulted 30 days before or 30 daysafter the date of the Encounter. Date/Time Source Result Type Result - Unit Interpretation Reference Range Comment Jul 10, 2024 07:16 AM [facility] PHOSPHORUS Specimen Type: PLASMA No comment entered. Ordering Provider: JUANCARLOS ECHOLS S Report Released Date/Time: Jul 09, 2024 12:23 PM Reporting Lab: [facility] [address] Performing Lab: [facility] [address] PHOSPHORUS 3.0 mg/dL 2.3-4.3 Jul 10, 2024 07:16 AM [facility] BASIC METABOLIC PANEL+MG Specimen Type: PLASMA No comment entered. Ordering Provider: JUANCARLOS ECHOLS S Report Released Date/Time: Jul 09, 2024 12:23 PM Reporting Lab: [facility] [address] Performing Lab: [facility] [address] CREATININE 0.7 mg/dL 0.7-1.2 UREA NITROGEN 27 mg/dL H 8-26 GLUCOSE 104 mg/dL H 70-100 SODIUM 133 mmol/L L 136-145 POTASSIUM 4.3 mmol/L 3.5-5.1 CHLORIDE 102 mmol/L 98-107 CO2 19 mmol/L L 22-29 CALCIUM 10.1 mg/dL 8.4-10.2 MAGNESIUM 1.9 mg/dL 1.6-2.6 ANION GAP 12 mmol/L 5-15 .CREAT EGFR(CKD-EPI) >90 >60 Jul 10, 2024 07:15 AM [facility] CBC Specimen Type: BLOOD No comment entered. Ordering Provider: JUANCARLOS ECHOLS Report Released Date/Time: Jul 09, 2024 12:23 PM Reporting Lab: [facility] [address] Performing Lab: [facility] [address] WBC 18.8 H 4.0-11.0 RBC 5.08 4.60-6.20 HGB 15.9 g/dL 13.5-17.9 HCT 46.8 41.0-54.0 MCV 92.1 fL 80.0-100.0 MCH 31.3 pg 27.0-33.0 MCHC 34.0 g/dL 32.0-37.5 PLT 479 H 150-400 MPV 10.2 fL 9.1-13.0 RDW 13.7 11.5-14.5 Jul 09, 2024 07:08 AM [facility] CBC Specimen Type: BLOOD No comment entered. Ordering Provider: QUYNH WEISS AV Report Released Date/Time: Jul 08, 2024 06:18 PM Reporting Lab: [facility] [address] Performing Lab: [facility] [address] WBC 15.3 H 4.0-11.0 RBC 4.91 4.60-6.20 HGB 15.1 g/dL 13.5-17.9 HCT 45.7 41.0-54.0 MCV 93.1 fL 80.0-100.0 MCH 30.8 pg 27.0-33.0 MCHC 33.0 g/dL 32.0-37.5 PLT 443 H 150-400 MPV 10.0 fL 9.1-13.0 RDW 13.5 11.5-14.5 Jul 08, 2024 10:50 AM [facility] URINALYSIS Specimen Type: URINE No comment entered. Ordering Provider: KATELYNN PERSON Report Released Date/Time: Jul 08, 2024 08:41 AM Reporting Lab: [facility] [address] Performing Lab: [facility] [address] URINE COLOR YELLOW SPECIFIC GRAVITY >1.050 H [...] NEGATIVE NEGATIVE Jul 08, 2024 09:54 AM [facility] CBC Specimen Type: BLOOD Comment: Specimen received in Lab at: 0952 Ordering Provider: JUANCARLOS ECHOLS Report Released Date/Time: Jul 07, 2024 04:49 PM Reporting Lab: [facility] [address] Performing Lab: [facility] [address] WBC 17.5 H 4.0-11.0 RBC 4.88 4.60-6.20 HGB 14.9 g/dL 13.5-17.9 HCT 45.7 41.0-54.0 MCV 93.6 fL 80.0-100.0 MCH 30.5 pg 27.0-33.0 MCHC 32.6 g/dL 32.0-37.5 PLT 472 H 150-400 MPV 10.2 fL 9.1-13.0 RDW 13.7 11.5-14.5 Jul 08, 2024 09:54 AM [facility] PHOSPHORUS Specimen Type: PLASMA Comment: Specimen received in Lab at: 0952 Ordering Provider: BALAJADIA,MAR IA S Report Released Date/Time: Jul 07, 2024 04:49 PM Reporting Lab: [facility] [address] Performing Lab: [facility] [address] PHOSPHORUS 2.6 mg/dL 2.3-4.3 Jul 08, 2024 09:54 AM [facility] BASIC METABOLIC PANEL+MG Specimen Type: PLASMA Comment: Specimen received in Lab at: 0952 Ordering Provider: JUANCARLOS ECHOLS S Report Released Date/Time: Jul 07, 2024 04:49 PM Reporting Lab: [facility] [address] Performing Lab: [facility] [address] CREATININE 0.9 mg/dL 0.7-1.2 UREA NITROGEN 26 mg/dL 8-26 GLUCOSE 128 mg/dL H 70-100 SODIUM 134 mmol/L L 136-145 POTASSIUM 3.4 mmol/L L 3.5-5.1 CHLORIDE 100 mmol/L 98-107 CO2 24 mmol/L 22-29 CALCIUM 9.8 mg/dL 8.4-10.2 MAGNESIUM 1.8 mg/dL 1.6-2.6 ANION GAP 10 mmol/L 5-15 .CREAT EGFR(CKD-EPI) >90 >60 Jul 07, 2024 02:00 PM [facility] C DIFF PANEL Specimen Type: FECES No comment entered. Ordering Provider: JEVON ZAZUETA Report Released Date/Time: Jul 07, 2024 12:26 PM Reporting Lab: [facility] [address] Performing Lab: [facility] [address] C DIFF TOX B GENE PCR NEGATIVE Negative Jul 07, 2024 07:41 AM [facility] PHOSPHORUS Specimen Type: PLASMA No comment entered. Ordering Provider: JEVON ZAZUETA Report Released Date/Time: Jul 06, 2024 03:44 PM Reporting Lab: [facility] [address] Performing Lab: [facility] [address] PHOSPHORUS 3.1 mg/dL 2.3-4.3 Jul 07, 2024 07:41 AM [facility] BASIC METABOLIC PANEL+MG Specimen Type: PLASMA No comment entered. Ordering Provider: JEVON ZAZUETA Report Released Date/Time: Jul 06, 2024 03:44 PM Reporting Lab: [facility] [address] Performing Lab: [facility] [address] CREATININE 0.9 mg/dL 0.7-1.2 UREA NITROGEN 20 mg/dL 8-26 GLUCOSE 157 mg/dL H 70-100 SODIUM 136 mmol/L 136-145 POTASSIUM 3.7 mmol/L 3.5-5.1 CHLORIDE 102 mmol/L 98-107 CO2 21 mmol/L L 22-29 CALCIUM 9.8 mg/dL 8.4-10.2 MAGNESIUM 1.9 mg/dL 1.6-2.6 ANION GAP 13 mmol/L 5-15 .CREAT EGFR(CKD-EPI) >90 >60 Jul 07, 2024 07:40 AM [facility] CBC Specimen Type: BLOOD No comment entered. Ordering Provider: JEVON ZAZUETA Report Released Date/Time: Jul 06, 2024 03:44 PM Reporting Lab: [facility] [address] Performing Lab: [facility] [address] WBC 21.2 H 4.0-11.0 RBC 5.09 4.60-6.20 HGB 15.9 g/dL 13.5-17.9 HCT 48.3 41.0-54.0 MCV 94.9 fL 80.0-100.0 MCH 31.2 pg 27.0-33.0 MCHC 32.9 g/dL 32.0-37.5 PLT 500 H 150-400 MPV 10.3 fL 9.1-13.0 RDW 13.6 11.5-14.5 Jul 06, 2024 07:21 AM [facility] CBC Specimen Type: BLOOD No comment entered. Ordering Provider: JEVON ZAZUETA Report Released Date/Time: Jul 05, 2024 01:22 PM Reporting Lab: [facility] [address] Performing Lab: [facility] [address] WBC 18.0 H 4.0-11.0 RBC 4.83 4.60-6.20 HGB 14.6 g/dL 13.5-17.9 HCT 45.5 41.0-54.0 MCV 94.2 fL 80.0-100.0 MCH 30.2 pg 27.0-33.0 MCHC 32.1 g/dL 32.0-37.5 PLT 368 150-400 MPV 10.4 fL 9.1-13.0 RDW 13.6 11.5-14.5 Jul 06, 2024 07:21 AM [facility] PHOSPHORUS Specimen Type: PLASMA No comment entered. Ordering Provider: JEVON ZAZUETA Report Released Date/Time: Jul 05, 2024 01:22 PM Reporting Lab: [facility] [address] Performing Lab: [facility] [address] PHOSPHORUS 3.6 mg/dL 2.3-4.3 Jul 06, 2024 07:21 AM [facility] BASIC METABOLIC PANEL+MG Specimen Type: PLASMA No comment entered. Ordering Provider: JEVON ZAZUETA Report Released Date/Time: Jul 05, 2024 01:22 PM Reporting Lab: [facility] [address] Performing Lab: [facility] [address] CREATININE 0.7 mg/dL 0.7-1.2 UREA NITROGEN 12 mg/dL 8-26 GLUCOSE 108 mg/dL H 70-100 SODIUM 138 mmol/L 136-145 POTASSIUM 3.4 mmol/L L 3.5-5.1 CHLORIDE 104 mmol/L 98-107 CO2 20 mmol/L L 22-29 CALCIUM 9.3 mg/dL 8.4-10.2 MAGNESIUM 1.9 mg/dL 1.6-2.6 ANION GAP 14 mmol/L 5-15 .CREAT EGFR(CKD-EPI) >90 >60 Jul 05, 2024 07:17 AM [facility] MAGNESIUM Specimen Type: PLASMA No comment entered. Ordering Provider: JUANCARLOS ECHOLS S Report Released Date/Time: Jul 04, 2024 09:39 AM Reporting Lab: [facility] [address] Performing Lab: [facility] [address] MAGNESIUM 2.0 mg/dL 1.6-2.6 Jul 05, 2024 07:17 AM [facility] PHOSPHORUS Specimen Type: PLASMA No comment entered. Ordering Provider: JUANCARLOS ECHOLS S Report Released Date/Time: Jul 04, 2024 09:39 AM Reporting Lab: [facility] [address] Performing Lab: [facility] [address] PHOSPHORUS 2.0 mg/dL L 2.3-4.3 Jul 05, 2024 07:17 AM [facility] BASIC METABOLIC PANEL+MG Specimen Type: PLASMA No comment entered. Ordering Provider: JUANCARLOS ECHOLS S Report Released Date/Time: Jul 04, 2024 09:39 AM Reporting Lab: [facility] [address] Performing Lab: [facility] [address] CREATININE 0.7 mg/dL 0.7-1.2 UREA NITROGEN 12 mg/dL 8-26 GLUCOSE 84 mg/dL 70-100 SODIUM 135 mmol/L L 136-145 POTASSIUM 3.8 mmol/L 3.5-5.1 CHLORIDE 104 mmol/L 98-107 CO2 24 mmol/L 22-29 CALCIUM 9.3 mg/dL 8.4-10.2 MAGNESIUM 2.0 mg/dL 1.6-2.6 ANION GAP 7 mmol/L 5-15 .CREAT EGFR(CKD-EPI) >90 >60 Jul 05, 2024 07:16 AM [facility] CBC Specimen Type: BLOOD No comment entered. Ordering Provider: JUANCARLOS ECHOLS S Report Released Date/Time: Jul 04, 2024 09:39 AM Reporting Lab: [facility] [address] Performing Lab: [facility] [address] WBC 18.3 H 4.0-11.0 RBC 4.49 L 4.60-6.20 HGB 14.1 g/dL 13.5-17.9 HCT 43.4 41.0-54.0 MCV 96.7 fL 80.0-100.0 MCH 31.4 pg 27.0-33.0 MCHC 32.5 g/dL 32.0-37.5 PLT 317 150-400 MPV 10.0 fL 9.1-13.0 RDW 13.9 11.5-14.5 Jul 04, 2024 07:17 AM [facility] PHOSPHORUS Specimen Type: PLASMA No comment entered. Ordering Provider: GABINO CAMERON Report Released Date/Time: Jul 03, 2024 06:31 PM Reporting Lab: [facility] [address] Performing Lab: [facility] [address] PHOSPHORUS 2.8 mg/dL 2.3-4.3 Jul 04, 2024 07:17 AM [facility] BASIC METABOLIC PANEL+MG Specimen Type: PLASMA No comment entered. Ordering Provider: GABINO CAMERON Report Released Date/Time: Jul 03, 2024 06:31 PM Reporting Lab: [facility] [address] Performing Lab: [facility] [address] CREATININE 0.7 mg/dL 0.7-1.2 UREA NITROGEN 16 mg/dL 8-26 GLUCOSE 129 mg/dL H 70-100 SODIUM 137 mmol/L 136-145 POTASSIUM 3.7 mmol/L 3.5-5.1 CHLORIDE 107 mmol/L 98-107 CO2 22 mmol/L 22-29 CALCIUM 9.0 mg/dL 8.4-10.2 MAGNESIUM 1.9 mg/dL 1.6-2.6 ANION GAP 8 mmol/L 5-15 .CREAT EGFR(CKD-EPI) >90 >60 Jul 04, 2024 07:16 AM [facility] CBC Specimen Type: BLOOD No comment entered. Ordering Provider: GABINO CAMERON Report Released Date/Time: Jul 03, 2024 06:31 PM Reporting Lab: [facility] [address] Performing Lab: [facility] [address] WBC 20.6 H 4.0-11.0 RBC 4.63 4.60-6.20 HGB 14.2 g/dL 13.5-17.9 HCT 43.4 41.0-54.0 MCV 93.7 fL 80.0-100.0 MCH 30.7 pg 27.0-33.0 MCHC 32.7 g/dL 32.0-37.5 PLT 329 150-400 MPV 10.4 fL 9.1-13.0 RDW 13.8 11.5-14.5 Jul 04, 2024 07:16 AM [facility] CBC & DIFF Specimen Type: BLOOD Comment: Manual Differential Performed Ordering Provider: GABINO CAMERON Report Released Date/Time: Jul 03, 2024 06:31 PM Reporting Lab: [facility] [address] Performing Lab: [facility] [address] WBC 20.6 H 4.0-11.0 RBC 4.63 4.60-6.20 [...] MORPHOLOGY PRESENT Jul 04, 2024 07:15 AM [facility] BNP Specimen Type: PLASMA No comment entered. Ordering Provider: GABINO CAMERON Report Released Date/Time: Jul 03, 2024 06:31 PM Reporting Lab: [facility] [address] Performing Lab: [facility] [address] BNP 292 pg/mL H <99 Jul 03, 2024 10:32 PM [facility] FINGERSTICK GLUCOSE Specimen Type: BLOOD Comment: Save Result Nurse Notified Ordering Provider: KATELYNN PERSON Report Released Date/Time: Jul 03, 2024 10:50 PM Reporting Lab: [facility] [address] Performing Lab: [facility] [address] FINGERSTICK GLUCOSE 126 mg/dL H 70-100 Jul 03, 2024 05:33 PM [facility] FINGERSTICK GLUCOSE Specimen Type: BLOOD Comment: Save Result Nurse Notified Ordering Provider: KATELYNN PERSON Report Released Date/Time: Jul 03, 2024 05:46 PM Reporting Lab: [facility] [address] Performing Lab: [facility] [address] FINGERSTICK GLUCOSE 141 mg/dL H 70-100 Jul 03, 2024 02:31 PM [facility] POC ABG/ELECTROLYTES Specimen Type: ARTERIAL BLOOD Comment: FIO2 = 97% Patient Temp: 36.0 C Sample Type = ARTERIAL Ordering Provider: MAZIN ARREDONDO Report Released Date/Time: Jul 03, 2024 01:48 PM Reporting Lab: [facility] [address] Performing Lab: [facility] [address] POC PH 7.387 7.35-7.45 POC PCO2 34.4 [...] H 80.0-105.0 Jul 03, 2024 01:05 PM [facility] POC ABG/ELECTROLYTES Specimen Type: ARTERIAL BLOOD Comment: FIO2 = 53% Patient Temp: 36.2 C Sample Type = ARTERIAL Ordering Provider: MAZIN ARREDONDO Report Released Date/Time: Jul 03, 2024 01:48 PM Reporting Lab: [facility] [address] Performing Lab: [facility] [address] POC PH 7.280 L 7.35-7.45 POC PCO2 [...] mm[Hg] 80.0-105.0 Jul 03, 2024 06:15 AM [facility] URINALYSIS Specimen Type: URINE No comment entered. Ordering Provider: MARYBETH POWELL Report Released Date/Time: Jun 12, 2024 04:01 PM Reporting Lab: [facility] [address] Performing Lab: [facility] [address] URINE COLOR YELLOW SPECIFIC GRAVITY 1.031 1.003-1.03 [...] 250 NEGATIVE Jul 03, 2024 06:13 AM [facility] CBC Specimen Type: BLOOD No comment entered. Ordering Provider: MARYBETH POWELL Report Released Date/Time: Jun 12, 2024 03:59 PM Reporting Lab: [facility] [address] Performing Lab: [facility] [address] WBC 15.8 H 4.0-11.0 RBC 5.11 4.60-6.20 HGB 16.1 g/dL 13.5-17.9 HCT 49.1 41.0-54.0 MCV 96.1 fL 80.0-100.0 MCH 31.5 pg 27.0-33.0 MCHC 32.8 g/dL 32.0-37.5 PLT 357 150-400 MPV 9.8 fL 9.1-13.0 RDW 13.7 11.5-14.5 Jun 24, 2024 09:50 AM [facility] BASIC METABOLIC PANEL+MG Specimen Type: PLASMA Comment: Specimen received in Lab at: 0948 Ordering Provider: JEVON ZAZUETA Report Released Date/Time: Jun 23, 2024 06:07 PM Reporting Lab: [facility] [address] Performing Lab: [facility] [address] CREATININE 0.8 mg/dL 0.7-1.2 UREA NITROGEN 13 mg/dL 8-26 GLUCOSE 135 mg/dL H 70-100 SODIUM 135 mmol/L L 136-145 POTASSIUM 3.6 mmol/L 3.5-5.1 CHLORIDE 103 mmol/L 98-107 CO2 24 mmol/L 22-29 CALCIUM 9.2 mg/dL 8.4-10.2 MAGNESIUM 1.9 mg/dL 1.6-2.6 ANION GAP 8 mmol/L 5-15 .CREAT EGFR(CKD-EPI) >90 >60 Jun 24, 2024 09:50 AM [facility] CBC Specimen Type: BLOOD Comment: Specimen received in Lab at: 0948 Ordering Provider: JEVON ZAZUETA Report Released Date/Time: Jun 23, 2024 06:07 PM Reporting Lab: [facility] [address] Performing Lab: [facility] [address] WBC 15.5 H 4.0-11.0 RBC 4.93 4.60-6.20 HGB 15.2 g/dL 13.5-17.9 HCT 46.5 41.0-54.0 MCV 94.3 fL 80.0-100.0 MCH 30.8 pg 27.0-33.0 MCHC 32.7 g/dL 32.0-37.5 PLT 223 150-400 MPV 11.4 fL 9.1-13.0 RDW 13.9 11.5-14.5 Jun 23, 2024 07:52 AM [facility] COMPREHENSIVE METABOLIC PANEL+MG Specimen Type: PLASMA No comment entered. Ordering Provider: JEVON ZAZUETA Report Released Date/Time: Jun 22, 2024 05:51 PM Reporting Lab: [facility] [address] Performing Lab: [facility] [address] CREATININE 0.7 mg/dL 0.7-1.2 UREA NITROGEN 16 [...] >90 >60 Jun 23, 2024 07:52 AM [facility] CBC & DIFF Specimen Type: BLOOD Comment: Automated Differential Performed Ordering Provider: JEVON ZAZUETA Report Released Date/Time: Jun 22, 2024 05:51 PM Reporting Lab: [facility] [address] Performing Lab: [facility] [address] WBC 14.9 H 4.0-11.0 RBC 5.09 4.60-6.20 [...] 0.1 0.0-0.1 Jun 22, 2024 06:10 PM [facility] CBC Specimen Type: BLOOD No comment entered. Ordering Provider: JEVON ZAZUETA Report Released Date/Time: Jun 22, 2024 05:51 PM Reporting Lab: [facility] [address] Performing Lab: [facility] [address] WBC 16.9 H 4.0-11.0 RBC 5.28 4.60-6.20 HGB 16.9 g/dL 13.5-17.9 HCT 50.4 41.0-54.0 MCV 95.5 fL 80.0-100.0 MCH 32.0 pg 27.0-33.0 MCHC 33.5 g/dL 32.0-37.5 PLT 223 150-400 MPV 10.9 fL 9.1-13.0 RDW 14.0 11.5-14.5 Jun 22, 2024 06:10 PM [facility] COMPREHENSIVE METABOLIC PANEL+MG Specimen Type: PLASMA No comment entered. Ordering Provider: JEVON ZAZUETA Report Released Date/Time: Jun 22, 2024 05:51 PM Reporting Lab: [facility] [address] Performing Lab: [facility] [address] CREATININE 0.7 mg/dL 0.7-1.2 UREA NITROGEN 17 [...] >90 >60 Jun 21, 2024 06:48 PM [facility] URINALYSIS Specimen Type: URINE No comment entered. Ordering Provider: DELIA MARTINEZ Report Released Date/Time: Jun 21, 2024 05:45 PM Reporting Lab: [facility] [address] Performing Lab: [facility] [address] URINE COLOR YELLOW SPECIFIC GRAVITY 1.041 H [...] 500 NEGATIVE Jun 21, 2024 05:34 PM [facility] POC CREATININE Specimen Type: BLOOD No comment entered. Ordering Provider: DELIA MARTINEZ Report Released Date/Time: Jun 21, 2024 06:07 PM Reporting Lab: [facility] [address] Performing Lab: [facility] [address] POC CREATININE 1.1 mg/dL 0.6-1.3 Jun 21, 2024 05:30 PM [facility] POC ABG/LACTATE Specimen Type: VENOUS BLOOD No comment entered. Ordering Provider: DELIA MARTINEZ Report Released Date/Time: Jun 21, 2024 06:07 PM Reporting Lab: [facility] [address] Performing Lab: [facility] [address] POC PH 7.470 H 7.31-7.41 POC PCO2 31.2 mm[Hg] L 41.00-51 .0 0 POC PO2 46 mm[Hg] H 35.0-40.0 POC TCO2 24 mmol/L 24.0-29.0 POC HCO3 22.7 mmol/L L 23.0-28.0 POC BE ECT -1 mmol/L POC SO2 85 H 70-75 POC LACTATE 1.85 mmol/L 0.90-1.70 Jun 21, 2024 05:24 PM [facility] PROTHROMBIN TIME/INR Specimen Type: PLASMA No comment entered. Ordering Provider: DELIA MARTINEZ Report Released Date/Time: Jun 21, 2024 05:30 PM Reporting Lab: [facility] [address] Performing Lab: [facility] [address] .INR 1.2 H 0.8-1.1 .PT 13.9 s H 9.4-12.5 Jun 21, 2024 05:24 PM [facility] LIPASE Specimen Type: PLASMA No comment entered. Ordering Provider: DELIA MARTINEZ Report Released Date/Time: Jun 21, 2024 05:30 PM Reporting Lab: [facility] [address] Performing Lab: [facility] [address] LIPASE 32 U/L <60 Jun 21, 2024 05:24 PM [facility] EXTRA GOLD GEL TUBE Specimen Type: SERUM No comment entered. Ordering Provider: DELIA MARTINEZ Report Released Date/Time: Jun 21, 2024 05:41 PM Reporting Lab: [facility] [phone] Performing Lab: [facility] [phone] EXTRA GOLD GEL TUBE RECEIVED Jun 21, 2024 05:24 PM [facility] COMPREHENSIVE METABOLIC PANEL+MG Specimen Type: PLASMA No comment entered. Ordering Provider: DELIA MARTINEZ Report Released Date/Time: Jun 21, 2024 05:30 PM Reporting Lab: [facility] [phone] Performing Lab: [facility] [phone] CREATININE 0.9 mg/dL 0.7-1.2 UREA NITROGEN 29 [...] mg/dL <0.5 Jun 21, 2024 05:24 PM [facility] CBC & DIFF Specimen Type: BLOOD Comment: Manual Differential Performed Ordering Provider: DELIA MARTINEZ Report Released Date/Time: Jun 21, 2024 05:30 PM Reporting Lab: [facility] [phone] Performing Lab: [facility] [phone] WBC 21.3 H 4.0-11.0 RBC 5.48 4.60-6.20 [...] MORPHOLOGY PRESENT Jun 08, 2024 10:59 AM [facility] PROTHROMBIN TIME/INR Specimen Type: PLASMA No comment entered. Ordering Provider: MARYBETH POWELL Report Released Date/Time: May 28, 2024 09:02 AM Reporting Lab: [facility] [phone] Performing Lab: [facility] [address] .INR 1.0 0.8-1.1 .PT 11.8 s 9.4-12.5 Jun 08, 2024 10:59 AM [facility] CBC Specimen Type: BLOOD No comment entered. Ordering Provider: MARYBETH POWELL Report Released Date/Time: May 28, 2024 09:02 AM Reporting Lab: [facility] [phone] Performing Lab: [facility] [address] WBC 16.1 H 4.0-11.0 RBC 5.02 4.60-6.20 HGB 16.0 g/dL 13.5-17.9 HCT 47.1 41.0-54.0 MCV 93.8 fL 80.0-100.0 MCH 31.9 pg 27.0-33.0 MCHC 34.0 g/dL 32.0-37.5 PLT 228 150-400 MPV 10.3 fL 9.1-13.0 RDW 14.6 H 11.5-14.5 Jun 08, 2024 10:59 AM [facility] HEMOGLOBIN A1C Specimen Type: BLOOD Comment: [...] 28, 2024 09:02 AM Reporting Lab: [facility] [phone] Performing Lab: [facility] [phone] HEMOGLOBIN A1C 4.9 4.0-6.0 Jun 08, 2024 10:59 AM [facility] BASIC METABOLIC PANEL+MG Specimen Type: PLASMA No comment entered. Ordering Provider: MARYBETH POWELL Report Released Date/Time: May 28, 2024 09:02 AM Reporting Lab: [facility] [phone] Performing Lab: [facility] [phone] CREATININE 0.9 mg/dL 0.7-1.2 UREA NITROGEN 15 [...] Height Weight Body Mass Index Source Jul 07, 2024 11:44 PM 97.2 60 130/68 18 94 0 [facility] Jul 07, 2024 04:59 PM 98 86 116/64 16 96 4 [facility] Jul 07, 2024 12:24 AM 97.4 101 133/81 18 97 6 [facility] Social History: Smoking Status (Most [...] Manuel ity May 15, 2024 08:30 AM AR-TOBACCO FORMER USER [facility] [...] OR MORE DEER [facility] May 06, 2023 11:30 AM VA-TOBACCO FORMER USER [facility] May 06, 2023 11:30 AM VA-TOBACCO [...] the Encounter. The data comes from all [place] treatment facilities. Date/Time Radiology Report Provider Source Jul 08, 2024 10:09 AM CHEST 2 VIEWS LILIAM Mustafa ND LAT: MEGFLACA YAMIL [id number] -1950 M Exm Date: JUL 08, 2024@10:09 Req Phys: KATELYNN PERSON Loc: 2KG/07-08-2024@11:49 Img Loc: MAIN X-RAY Service: [place] [address] (Case 24 COMPLETE) CHEST 2 VIEWS PA AND LAT (RAD Detailed) CPT:65259 Reason for Study: Uptrending WBC, POD 5 Clinical History: [place] IS NOT under investigation for COVID-19 or is COVID-19 negative POD 5, work up for uptrending wbc Responsible provider name and phone number to notify for critical findings if other than user placing the order and pager listed below: User placing orders pager: Katelynn Person LAST CREATININE 0.9 (07/07/24) Report Status: Verified Date Reported: JUL 08, 2024 Date Verified: JUL 08, 2024 Die Trouble Shooter E-Sig: Report: CHEST 2 VIEWS PA AND LAT HISTORY: Uptrending WBC, POD 5 COMPARISON: CT chest 11/12/2022 TECHNIQUE: Frontal and lateral views of the chest, submitted to the [place] National Teleradiology Program (NTP) for interpretation. FINDINGS: Lungs: Clear. No focal consolidation. No pulmonary edema. Pleura: No pleural effusion or pneumothorax. Mediastinum: Normal size and contour. Bones: Unremarkable. Impression: No acute cardiopulmonary disease. READING PHYSICIAN: Sarbjit Vaughn M.D. -[phone] 07/08/2024 12:[address] [facility] National Teleradiology Program [phone] (For Medical Practitioner Use Only) Attention Patients / Veterans: If you have questions or concerns about these test results, please contact your ordering provider or primary care team. Primary Interpreting Staff: RADIOLOGY,OUTSIDE SERVICE, Staff Physician / RADIOLOGY,OUTSIDE SERVICE [facility] Jul 08, 2024 10:[address] (AP) ABDOMEN/PE LVIS W CONTRAST: FLACA WEAVER [id number] -1950 M Exm Date: JUL 08, 2024@10:00 Req Phys: KATELYNN PERSON Pat Loc: 2KG/07-08-2024@12:07 Img Loc: CT IMAGING [place] [address] (Case 22 COMPLETE) CT (AP) ABDOMEN/PELVIS W CONTRAST(CT Detailed) CPT:02014 Contrast Media : Non-ionic Iodinated Reason for [...] PLASMA .CREAT EGFR(CKD-E >90 Ref: >=60 Allergies: ([place] only) TERAZOSIN (Mar 13, 2015) Report Status: Verified Date Reported: JUL 08, 2024 Date Verified: JUL 08, 2024 Die Trouble Shooter E-Sig: Report: CT (AP) ABDOMEN/PELVIS W CONTRAST HISTORY: POD 5, Uptrending WBC - Concern for Abscess/other infection COMPARISON: June 21, 2024 TECHNIQUE: CT abdomen and pelvis was performed after intravenous contrast. Axial, sagittal and coronal reformatted images. The study was performed at the local [place] facility and images were sent to the [place] National Teleradiology Program (NTP) for interpretation. Number [...] as noted above READING PHYSICIAN: Celestino Blanc -[phone] 07/08/2024 13:04 [facility] [employer] [facility] [phone] (For Medical Practitioner Use Only) Attention Patients / Veterans: If you have questions or concerns about these test results, please contact your ordering provider or primary care team. Primary Interpreting Staff: RADIOLOGY,OUTSIDE SERVICE, Staff Physician / RADIOLOGY,OUTSIDE SERVICE [facility] Jun 22, 2024 11:49 AM ABSCESS DRAIN PLAC EMENT PERITONEAL (P): FLACA WEAVER [id number] -1950 M Exm Date: JUN 22, 2024@11:49 Req Phys: ANGELA HOLDEN [facility]@17:14 Img Loc: INTERVENTIONAL RADIOLOGY Service: [place] [address] (Case [id number] COMPLETE) IR PERITONEAL/RETROPERITONEAL PER(ANI Detailed) CPT:91976 Reason for Study: diverticulitis with abscess (Case 3570 COMPLETE) IR MOD SEDATION 10-22 MIN (ANI Detailed) CPT:72731 Clinical History: [place] IS NOT under investigation for COVID-19 or is COVID-19 negative 73 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 please place abscess drain. Contact number for responsible provider who can be reached for any questions or notifications of critical findings: [phone] n/a LAST CREATININE 0.9 (06/21/24) Report Status: Verified Date Reported: JUN 22, 2024 Date Verified: JUN 22, 2024 Die Trouble Shooter E-Sig:/ES/LISA PENDLETON MD Report: PROCEDURES: Placement of [...] obtained. A pre-procedural Time-Out was performed per [facility] policy. The patient was placed in the supine position on the CT table. Preprocedural scan performed. The suprapubic region/lower abdominal wall was sterilely prepped and draped in the usual fashion.1% lidocaine without epinephrine was used for local anesthesia. Using real-time CT fluoroscopy, a 5 [employer] catheter was advanced into the collection in the left pelvis. A wire was coiled in the collection. The tract into the collection was dilated to accommodate the 12 [place]ian locking pigtail drainage catheter. There was return [...] Primary Interpreting Staff: LISA PENDLETON MD, RADIOLOGIST (Die Trouble Shooter) /JRT LISA PENDLETON [facility] Jun 22, 2024 11:[address] NEEDLE PLACEMEN T (P): MEGFLACA YAMIL [id number] -1950 M Exm Date: JUN 22, 2024@11:48 Req Phys: ANGELA HOLDEN Loc: 2KC/06-22-2024@17:14 Img Loc: CT IMAGING Service: [place] [address] (Case [id number] COMPLETE) CT SCAN FOR NEEDLE PLACEMENT (CT Detailed) CPT:79951 Reason for Study: l pelvic abscess drain Clinical History: Report Status: Verified Date Reported: JUN 22, 2024 Date Verified: JUN 22, 2024 Die Trouble Shooter E-Sig:/ES/LISA PENDLETON MD Report: PROCEDURES: Placement of [...] obtained. A pre-procedural Time-Out was performed per [facility] policy. The patient was placed in the supine position on the CT table. Preprocedural scan performed. The suprapubic region/lower abdominal wall was sterilely prepped and draped in the usual fashion.1% lidocaine without epinephrine was used for local anesthesia. Using real-time CT fluoroscopy, a 5 [employer] [employer] Mediaesis catheter was advanced into the collection in the left pelvis. A wire was coiled in the collection. The tract into the collection was dilated to accommodate the 12 [place]ian locking pigtail drainage catheter. There was return [...] Primary Interpreting Staff: LISA PENDLETON MD, RADIOLOGIST (Die Trouble Shooter) /JRT LISA PENDLETON [facility] Jun 21, 2024 06:[address] (AP) ABDOMEN/PE LVIS (P): FLACA WEAVER [id number] -1950 M Exm Date: JUN 21, 2024@18:09 Req Phys: DELIA MARTINEZ Loc: [facility] (Re Img Loc: CT IMAGING Service: [place] [address] (Case [id number] COMPLETE) CT (AP) ABDOMEN/PELVIS W CONTRAST(CT Detailed) CPT:14633 Contrast Media : Non-ionic Iodinated Reason for [...] PLASMA .CREAT EGFR(CKD-E >90 Ref: >=60 Allergies: ([place] only) TERAZOSIN (Mar 13, 2015) Defer to [...] 21, 2024 Date Verified: JUN 21, 2024 Die Trouble Shooter E-Sig:/ALEXI/CARLOS A CUNNINGHAM DO Report: EXAMINATION: CT [...] Interpreting Staff: CARLOS A CUNNINGHAM DO, RADIOLOGIST (Die Trouble Shooter) /CARLOS A ROWELL [facility] Pathology Reports: [...] the Encounter. The data comes from all [place] treatment facilities. Date/Time Pathology Report Provider Source Jul 03, 2024 05:59 AM LR SURGICAL PATHOL OGY REPORT: LOCAL TITLE: LR SURGICAL PATHOLOGY REPORT STANDARD TITLE: PATHOLOGY REPORT DATE OF NOTE: JUL 06, 2024@10:40:48 ENTRY DATE: JUL 06, 2024@10:40:48 AUTHOR: EDUARDO PALOMARES EXP COSIGNER: URGENCY: STATUS: COMPLETED $APHDR Reporting Lab: [facility] [CLIA# [id number]] [place] [address] - - - - - - - [...] - PATHOLOGY REPORT Accession No. [id number] - - - - - - - [...] - PATHOLOGY REPORT Accession No. [id number] - - - - - - - [...] Second circumferential surgical margin, en face; E-F: Plant And Instrument Engineer diverticula; G: Plant And Instrument Engineer section of mesentery; H: Random mill representative section of additional adipose tissue fragment. [...] Performing Laboratory: Surgical Pathology Report Performed By: [facility] [CLIA# [id number]] [place] [address] $FTR - - - - - - [...] - - FLACA WEAVER STANDARD FORM 515 ID:[id number] SEX:M :1950 AGE: 73 LOC:23751 ADM:Jun DX:DIVERTICULITIS PCP: Jatinder Cabrera /alexi/ EDUARDO PALOMARES MD STAFF PATHOLOGIST Signed: 07/06/2024 10:40 EDUARDO PALOMARES [facility] Jun 22, 2024 01:15 PM LR MICROBIOLOGY RE PORT: Reporting Lab: [facility] [CLIA# [id number]] [place] [address] Accession [UID]: [id number] [[id number]] Received: Jun 22, 2024@13:38 Collection sample: FLUID Collection date: Jun 22, 2024 13:15 Provider: ANGELA HOLDEN Comment on specimen: LLQ ABSCESS, RECEIVED IN ANAEROBIC TRANSPORT VIAL Test(s) ordered: GRAM STAIN.................... completed: Jun 22, 2024 15:03 CULTURE & SUSCEPTIBILITY...... completed: Jun 25, 2024 * BACTERIOLOGY FINAL REPORT => Jun 25, 2024 10:56 [facility] CODE: [id number] GRAM STAIN: DIRECT SMEAR of specimen before [...] -=--=--=--=--=--=--=-- Performing Laboratory: Bacteriology Report Performed By: [facility] [CLIA# [id number]] [place] [address] [facility] Jun 22, 2024 01:15 PM LR MICROBIOLOGY RE PORT: Reporting Lab: [facility] [CLIA# [id number]] [place] [address] Accession [UID]: [id number] [[id number]] Received: Jun 22, 2024@13:38 Collection sample: FLUID Collection date: Jun 22, 2024 13:15 Provider: ANGELA HOLDEN Comment on specimen: LLQ ABSCESS, RECEIVED IN ANAEROBIC TRANSPORT VIAL Test(s) ordered: ANAEROBIC CULTURE............. completed: Jun 28, 2024 * BACTERIOLOGY FINAL REPORT => Jun 28, 2024 10:08 TECH CODE: [id number] CULTURE RESULTS: HEAVY GROWTH MIXED ANAEROBES Comment: including the followin+ Bacteroides fragilis 4+ Bacteroides vulgatus 4+ Clostridium innocuum Beta-lactamase negative 4+ Bacteroides caccae 4+ Parvimonas micra 4+ Bacteroides uniformis 4+ Gemella morbillorum 4+ anaerobic small, Gram Positive Rods 4+ Bacteroides thetaiotaomicron Standard workup is now complete. Bacteriology Remark(s): THIS REPORT IS FINAL =--=--=--=--=--=--=--=--=--= --=--=--=--=--=--=--=--=--=- -=--=--=--=--=--=--=-- Performing Laboratory: Bacteriology Report Performed By: [facility] [CLIA# [id number]] [place] [address] [facility] Jun 21, 2024 06:12 PM LR MICROBIOLOGY RE PORT: Reporting Lab: [facility] [CLIA# [id number]] [place] [address] Accession [UID]: [id number] [[id number]] Received: Jun 21, 2024@18:12 Collection sample: BLOOD [...] -=--=--=--=--=--=--=-- Performing Laboratory: Bacteriology Report Performed By: [facility] [CLIA# [id number]] [place] [address] [facility] Jun 21, 2024 06:11 PM LR MICROBIOLOGY RE PORT: Reporting Lab: [facility] [CLIA# [id number]] [place] [address] Accession [UID]: [id number] [[id number]] Received: Jun 21, 2024@18:11 Collection sample: BLOOD [...] -=--=--=--=--=--=--=-- Performing Laboratory: Bacteriology Report Performed By: [facility] [CLIA# [id number]] [place] [address] [facility] Jun 08, 2024 11:00 AM LR MICROBIOLOGY RE PORT: Reporting Lab: [facility] [CLIA# [id number]] [place] [address] Accession [UID]: [id number] [[id number]] Received: Jun 08, 2024@11:00 Collection sample: URINE Collection date: Jun 08, 2024 11:00 Provider: MARYBETH POWELL Comment on specimen: urine Test(s) ordered: CULTURE & SUSCEPTIBILITY...... completed: Jun 09, 2024 * BACTERIOLOGY FINAL REPORT => Jun 09, 2024 19:12 TECH CODE: [id number] CULTURE RESULTS: ESCHERICHIA COLI - Quantity: >100,000 [...] -=--=--=--=--=--=--=-- Performing Laboratory: Bacteriology Report Performed By: [facility] [CLIA# [id number]] [place] [address] [facility]
--- OUTSIDE RECORDS SUMMARY | 2024-07-16 07:18 | XMS_ITS ---
[place] DAILY HOSPITALIZATION DATA [facility]CS Encounter Summary Created on: July 16, 2024 MEG FLACADARCI LOBO : 1950 Sex: Male Author Name [facility] [place] [facility] [place] Address [address] [place] [address] Care Team Providers Care Hog Grader Name Role Phone JATINDER CABRERA Primary Care [...] PART A Sep 29, 2016 PART A [id number] [phone] JUDY WEAVER PATIENT Selected Encounter This section includes the information on record at [place] for the Encounter. Date/Time Encounter Type Encounter Description Reason Pro vider Source Jul 07, 2024 09:54 AM Inpatient Visit DAILY HOSPITALIZATION DATA [facility] Encounter Template Text not used by [...] 2024 08:15 AM AMBULATORY - NONE [place] [facility] Active, Pending, and Scheduled Orders This section [...] TYPE & SCREEN - LAB BLOOD WC [facility] Jul 03, 2024 12:00 AM Laboratory - Blood Bank Order TYPE & SCREEN - LAB BLOOD [facility] Jul 16, 2024 12:00 AM Laboratory - [...] Jul 09, 2024 12:23 PM Reporting Lab: [facility] [address] Performing Lab: [facility] [address] PHOSPHORUS 3.0 mg/dL 2.3-4.3 Jul 10, 2024 07:16 AM [facility] BASIC METABOLIC PANEL+MG Specimen Type: PLASMA No comment entered. Ordering Provider: JUANCARLOS ECHOLS S Report Released Date/Time: Jul 09, 2024 12:23 PM Reporting Lab: [facility] [address] Performing Lab: [facility] [address] CREATININE 0.7 mg/dL 0.7-1.2 UREA NITROGEN 27 [...] Jul 09, 2024 12:23 PM Reporting Lab: [facility] [address] Performing Lab: [facility] [address] WBC 18.8 H 4.0-11.0 RBC 5.08 4.60-6.20 [...] Jul 08, 2024 06:18 PM Reporting Lab: [facility] [address] Performing Lab: [facility] [address] WBC 15.3 H 4.0-11.0 RBC 4.91 4.60-6.20 [...] Jul 08, 2024 08:41 AM Reporting Lab: [facility] [address] Performing Lab: [facility] [address] URINE COLOR YELLOW SPECIFIC GRAVITY >1.050 H [...] Jul 07, 2024 04:49 PM Reporting Lab: [facility] [address] Performing Lab: [facility] [address] WBC 17.5 H 4.0-11.0 RBC 4.88 4.60-6.20 [...] Jul 07, 2024 04:49 PM Reporting Lab: [facility] [address] Performing Lab: [facility] [address] PHOSPHORUS 2.6 mg/dL 2.3-4.3 Jul 08, 2024 09:54 AM [facility] BASIC METABOLIC PANEL+MG Specimen Type: PLASMA Comment: Specimen received in Lab at: 0952 Ordering Provider: JUANCARLOS ECHOLS S Report Released Date/Time: Jul 07, 2024 04:49 PM Reporting Lab: [facility] [address] Performing Lab: [facility] [address] CREATININE 0.9 mg/dL 0.7-1.2 UREA NITROGEN 26 [...] Jul 07, 2024 12:26 PM Reporting Lab: [facility] [address] Performing Lab: [facility] [address] C DIFF TOX B GENE PCR NEGATIVE Negative Jul 07, 2024 07:41 AM [facility] PHOSPHORUS Specimen Type: PLASMA No comment entered. Ordering Provider: JEVON ZAZUETA Report Released Date/Time: Jul 06, 2024 03:44 PM Reporting Lab: [facility] [address] Performing Lab: [facility] [address] PHOSPHORUS 3.1 mg/dL 2.3-4.3 Jul 07, 2024 07:41 AM [facility] BASIC METABOLIC PANEL+MG Specimen Type: PLASMA No comment entered. Ordering Provider: JEVON ZAZUETA Report Released Date/Time: Jul 06, 2024 03:44 PM Reporting Lab: [facility] [address] Performing Lab: [facility] [address] CREATININE 0.9 mg/dL 0.7-1.2 UREA NITROGEN 20 [...] Jul 06, 2024 03:44 PM Reporting Lab: [facility] [address] Performing Lab: [facility] [address] WBC 21.2 H 4.0-11.0 RBC 5.09 4.60-6.20 [...] Jul 05, 2024 01:22 PM Reporting Lab: [facility] [address] Performing Lab: [facility] [address] WBC 18.0 H 4.0-11.0 RBC 4.83 4.60-6.20 [...] Jul 05, 2024 01:22 PM Reporting Lab: [facility] [address] Performing Lab: [facility] [address] PHOSPHORUS 3.6 mg/dL 2.3-4.3 Jul 06, 2024 07:21 AM [facility] BASIC METABOLIC PANEL+MG Specimen Type: PLASMA No comment entered. Ordering Provider: JEVON ZAZUETA Report Released Date/Time: Jul 05, 2024 01:22 PM Reporting Lab: [facility] [address] Performing Lab: [facility] [address] CREATININE 0.7 mg/dL 0.7-1.2 UREA NITROGEN 12 [...] Jul 04, 2024 09:39 AM Reporting Lab: [facility] [address] Performing Lab: [facility] [address] MAGNESIUM 2.0 mg/dL 1.6-2.6 Jul 05, 2024 07:17 AM [facility] PHOSPHORUS Specimen Type: PLASMA No comment entered. Ordering Provider: JUANCARLOS ECHOLS S Report Released Date/Time: Jul 04, 2024 09:39 AM Reporting Lab: [facility] [address] Performing Lab: [facility] [address] PHOSPHORUS 2.0 mg/dL L 2.3-4.3 Jul 05, 2024 07:17 AM [facility] BASIC METABOLIC PANEL+MG Specimen Type: PLASMA No comment entered. Ordering Provider: JUANCARLOS ECHOLS S Report Released Date/Time: Jul 04, 2024 09:39 AM Reporting Lab: [facility] [address] Performing Lab: [facility] [address] CREATININE 0.7 mg/dL 0.7-1.2 UREA NITROGEN 12 [...] Jul 04, 2024 09:39 AM Reporting Lab: [facility] [address] Performing Lab: [facility] [address] WBC 18.3 H 4.0-11.0 RBC 4.49 L [...] Jul 03, 2024 06:31 PM Reporting Lab: [facility] [address] Performing Lab: [facility] [address] PHOSPHORUS 2.8 mg/dL 2.3-4.3 Jul 04, 2024 07:17 AM [facility] BASIC METABOLIC PANEL+MG Specimen Type: PLASMA No comment entered. Ordering Provider: GABINO CAMERON Report Released Date/Time: Jul 03, 2024 06:31 PM Reporting Lab: [facility] [address] Performing Lab: [facility] [address] CREATININE 0.7 mg/dL 0.7-1.2 UREA NITROGEN 16 [...] Jul 03, 2024 06:31 PM Reporting Lab: [facility] [address] Performing Lab: [facility] [address] WBC 20.6 H 4.0-11.0 RBC 4.63 4.60-6.20 [...] Jul 03, 2024 06:31 PM Reporting Lab: [facility] [address] Performing Lab: [facility] [address] WBC 20.6 H 4.0-11.0 RBC 4.63 4.60-6.20 [...] Jul 03, 2024 06:31 PM Reporting Lab: [facility] [address] Performing Lab: [facility] [address] BNP 292 pg/mL H <99 Jul 03, 2024 10:32 PM [facility] FINGERSTICK GLUCOSE Specimen Type: BLOOD Comment: Save Result Nurse Notified Ordering Provider: KATELYNN PERSON Report Released Date/Time: Jul 03, 2024 10:50 PM Reporting Lab: [facility] [address] Performing Lab: [facility] [address] FINGERSTICK GLUCOSE 126 mg/dL H 70-100 Jul 03, 2024 05:33 PM [facility] FINGERSTICK GLUCOSE Specimen Type: BLOOD Comment: Save Result Nurse Notified Ordering Provider: KATELYNN PERSON Report Released Date/Time: Jul 03, 2024 05:46 PM Reporting Lab: [facility] [address] Performing Lab: [facility] [address] FINGERSTICK GLUCOSE 141 mg/dL H 70-100 Jul 03, 2024 02:31 PM [facility] POC ABG/ELECTROLYTES Specimen Type: ARTERIAL BLOOD Comment: FIO2 = 97% Patient Temp: 36.0 C Sample Type = ARTERIAL Ordering Provider: MAZIN ARREDONDO Report Released Date/Time: Jul 03, 2024 01:48 PM Reporting Lab: [facility] [address] Performing Lab: [facility] [address] POC PH 7.387 7.35-7.45 POC PCO2 34.4 [...] Jul 03, 2024 01:48 PM Reporting Lab: [facility] [address] Performing Lab: [facility] [address] POC PH 7.280 L 7.35-7.45 POC PCO2 [...] Jun 12, 2024 04:01 PM Reporting Lab: [facility] [address] Performing Lab: [facility] [address] URINE COLOR YELLOW SPECIFIC GRAVITY 1.031 1.003-1.03 [...] Jun 12, 2024 03:59 PM Reporting Lab: [facility] [address] Performing Lab: [facility] [address] WBC 15.8 H 4.0-11.0 RBC 5.11 4.60-6.20 [...] Jun 23, 2024 06:07 PM Reporting Lab: [facility] [address] Performing Lab: [facility] [address] CREATININE 0.8 mg/dL 0.7-1.2 UREA NITROGEN 13 [...] Jun 23, 2024 06:07 PM Reporting Lab: [facility] [address] Performing Lab: [facility] [address] WBC 15.5 H 4.0-11.0 RBC 4.93 4.60-6.20 [...] Jun 22, 2024 05:51 PM Reporting Lab: [facility] [address] Performing Lab: [facility] [address] CREATININE 0.7 mg/dL 0.7-1.2 UREA NITROGEN 16 [...] Jun 22, 2024 05:51 PM Reporting Lab: [facility] [address] Performing Lab: [facility] [address] WBC 14.9 H 4.0-11.0 RBC 5.09 4.60-6.20 [...] Jun 22, 2024 05:51 PM Reporting Lab: [facility] [address] Performing Lab: [facility] [address] WBC 16.9 H 4.0-11.0 RBC 5.28 4.60-6.20 [...] Jun 22, 2024 05:51 PM Reporting Lab: [facility] [address] Performing Lab: [facility] [address] CREATININE 0.7 mg/dL 0.7-1.2 UREA NITROGEN 17 [...] Jun 21, 2024 05:45 PM Reporting Lab: [facility] [address] Performing Lab: [facility] [address] URINE COLOR YELLOW SPECIFIC GRAVITY 1.041 H [...] Jun 21, 2024 06:07 PM Reporting Lab: [facility] [address] Performing Lab: [facility] [address] POC CREATININE 1.1 mg/dL 0.6-1.3 Jun 21, 2024 05:30 PM [facility] POC ABG/LACTATE Specimen Type: VENOUS BLOOD No comment entered. Ordering Provider: DELIA MARTINEZ Report Released Date/Time: Jun 21, 2024 06:07 PM Reporting Lab: [facility] [address] Performing Lab: [facility] [address] POC PH 7.470 H 7.31-7.41 POC PCO2 [...] Jun 21, 2024 05:30 PM Reporting Lab: [facility] [address] Performing Lab: [facility] [address] .INR 1.2 H 0.8-1.1 .PT 13.9 s H 9.4-12.5 Jun 21, 2024 05:24 PM [facility] LIPASE Specimen Type: PLASMA No comment entered. Ordering Provider: DELIA MARTINEZ Report Released Date/Time: Jun 21, 2024 05:30 PM Reporting Lab: [facility] [address] Performing Lab: [facility] [address] LIPASE 32 U/L <60 Jun 21, 2024 05:24 PM [facility] EXTRA GOLD GEL TUBE Specimen Type: SERUM No comment entered. Ordering Provider: DELIA MARTINEZ Report Released Date/Time: Jun 21, 2024 05:41 PM Reporting Lab: [facility] [address] Performing Lab: [facility] [address] EXTRA GOLD GEL TUBE RECEIVED Jun 21, 2024 05:24 PM [facility] COMPREHENSIVE METABOLIC PANEL+MG Specimen Type: PLASMA No comment entered. Ordering Provider: DELIA MARTINEZ Report Released Date/Time: Jun 21, 2024 05:30 PM Reporting Lab: [facility] [address] Performing Lab: [facility] [address] CREATININE 0.9 mg/dL 0.7-1.2 UREA NITROGEN 29 [...] Jun 21, 2024 05:30 PM Reporting Lab: [facility] [address] Performing Lab: [facility] [address] WBC 21.3 H 4.0-11.0 RBC 5.48 4.60-6.20 [...] May 28, 2024 09:02 AM Reporting Lab: [facility] [address] Performing Lab: [facility] [address] .INR 1.0 0.8-1.1 .PT 11.8 s 9.4-12.5 [...] May 28, 2024 09:02 AM Reporting Lab: [facility] [address] Performing Lab: [facility] [address] HEMOGLOBIN A1C 4.9 4.0-6.0 Jun 08, 2024 10:59 AM [facility] CBC Specimen Type: BLOOD No comment entered. Ordering Provider: MARYBETH POWELL Report Released Date/Time: May 28, 2024 09:02 AM Reporting Lab: [facility] [address] Performing Lab: [facility] [address] WBC 16.1 H 4.0-11.0 RBC 5.02 4.60-6.20 [...] May 28, 2024 09:02 AM Reporting Lab: [facility] [address] Performing Lab: [facility] [address] CREATININE 0.9 mg/dL 0.7-1.2 UREA NITROGEN 15 [...] PM 97.2 60 130/68 18 94 0 [facility] Jul 07, 2024 04:59 PM 98 86 116/64 16 96 4 [facility] Jul 07, 2024 12:24 AM 97.4 101 133/81 18 97 6 [facility] Social History: Smoking Status (Most current) [...] Mar 23, 2016 CLINICAL WARNING [facility] Radiology Reports: +/- 30 days of the [...] VIEWS LILIAM Mustafa ND LAT: MEGFLACA YAMIL [id number] -1950 M Exm Date: JUL 08, 2024@10:09 Req Phys: KATELYNN PERSON Loc: 2KG/07-08-2024@11:49 Img Loc: MAIN X-RAY Service: [place] [address] (Case 24 COMPLETE) CHEST 2 VIEWS PA AND LAT (RAD Detailed) CPT:67364 Reason for Study: Uptrending WBC, POD 5 Clinical History: [place] IS NOT under investigation for COVID-19 or is COVID-19 negative POD 5, work up for uptrending wbc Responsible provider name and phone number to notify for critical findings if other than user placing the order and pager listed below: User placing orders pager: Katelynn Person LAST CREATININE 0.9 (07/07/24) Report Status: Verified Date Reported: JUL 08, 2024 Date Verified: JUL 08, 2024 Job Lithographer E-Sig: Report: CHEST 2 VIEWS PA AND [...] cardiopulmonary disease. READING PHYSICIAN: Sarbjit Vaughn M.D. -[phone] 07/08/2024 12:46 EST [facility] National Teleradiology Program [phone] (For Medical Practitioner Use Only) Attention Patients / Veterans: If you have questions or concerns about these test results, please contact your ordering provider or primary care team. Primary Interpreting Staff: RADIOLOGY,OUTSIDE SERVICE, Staff Physician / RADIOLOGY,OUTSIDE SERVICE [facility] Jul 08, 2024 10:[address] (AP) ABDOMEN/PE LVIS W CONTRAST: MEGFLACADARCI LOBO [id number] -1950 M Exm Date: JUL 08, 2024@10:00 Req Phys: KATELYNN PERSON Pat Loc: 2KG/07-08-2024@12:07 Img Loc: CT IMAGING Service: [place] [address] (Case 22 COMPLETE) CT (AP) ABDOMEN/PELVIS W CONTRAST(CT Detailed) CPT:77204 Contrast Media : Non-ionic Iodinated Reason for [...] PLASMA .CREAT EGFR(CKD-E >90 Ref: >=60 Allergies: ([place] only) TERAZOSIN (Mar 13, 2015) Report Status: Verified Date Reported: JUL 08, 2024 Date Verified: JUL 08, 2024 Job Lithographer E-Sig: Report: CT (AP) ABDOMEN/PELVIS W CONTRAST [...] as noted above READING PHYSICIAN: Celestino Blanc -[phone] 07/08/2024 13:04 [facility] [phone] (For Medical Practitioner Use Only) Attention Patients / Veterans: If you have questions or concerns about these test results, please contact your ordering provider or primary care team. Primary Interpreting Staff: RADIOLOGY,OUTSIDE SERVICE, Staff Physician / RADIOLOGY,OUTSIDE SERVICE [facility] Jun 22, 2024 11:49 AM ABSCESS DRAIN PLAC EMENT PERITONEAL (P): FLACA WEAVER [id number] -1950 M Exm Date: JUN 22, 2024@11:49 Req Phys: ANGELA HOLDEN [facility]: [facility]06-22-2024@17:14 Img Loc: INTERVENTIONAL RADIOLOGY Service: [place] [address] (Case [id number] COMPLETE) IR PERITONEAL/RETROPERITONEAL PER(ANI Detailed) CPT:84830 Reason for Study: diverticulitis with abscess (Case 3570 COMPLETE) IR MOD SEDATION 10-22 MIN (ANI Detailed) CPT:84692 Clinical History: [place] IS NOT under investigation for COVID-19 or is COVID-19 negative 73 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 please place abscess drain. Contact number for responsible provider who can be reached for any questions or notifications of critical findings: [phone] n/a LAST CREATININE 0.9 (06/21/24) Report Status: Verified Date Reported: JUN 22, 2024 Date Verified: JUN 22, 2024 Job Lithographer E-Sig:/ES/LISA PENDLETON MD Report: PROCEDURES: Placement of [...] obtained. A pre-procedural Time-Out was performed per [facility] policy. The patient was placed in the supine position on the CT table. Preprocedural scan performed. The suprapubic region/lower abdominal wall was sterilely prepped and draped in the usual fashion.1% lidocaine without epinephrine was used for local anesthesia. Using real-time CT fluoroscopy, a 5 [place] [employer]hkesis catheter was advanced into the collection in the left pelvis. A wire was coiled in the collection. The tract into the collection was dilated to accommodate the 12 [place] locking pigtail drainage catheter. There was return [...] Primary Interpreting Staff: LISA PENDLETON MD, RADIOLOGIST (Job Lithographer) /JRT LISA PENDLETON [facility] Jun 22, 2024 11:[address] NEEDLE PLACEMEN T (P): MEGFLACA YAMIL [id number] -1950 M Exm Date: JUN 22, 2024@11:48 Req Phys: ANGELA HOLDEN Loc: 2KC/06-22-2024@17:14 Img Loc: CT IMAGING Service: [place] [address] (Case [id number] COMPLETE) CT SCAN FOR NEEDLE PLACEMENT (CT Detailed) CPT:36550 Reason for Study: l pelvic abscess drain Clinical History: Report Status: Verified Date Reported: JUN 22, 2024 Date Verified: JUN 22, 2024 Job Lithographer E-Sig:/ES/LISA PENDLETON MD Report: PROCEDURES: Placement of [...] obtained. A pre-procedural Time-Out was performed per [facility] policy. The patient was placed in the supine position on the CT table. Preprocedural scan performed. The suprapubic region/lower abdominal wall was sterilely prepped and draped in the usual fashion.1% lidocaine without epinephrine was used for local anesthesia. Using real-time CT fluoroscopy, a 5 [place] [employer] centesis catheter was advanced into the collection in the left pelvis. A wire was coiled in the collection. The tract into the collection was dilated to accommodate the 12 [place] locking pigtail drainage catheter. There was return [...] Primary Interpreting Staff: LISA PENDLETON MD, RADIOLOGIST (Job Lithographer) /JRT LISA PENDLETON [facility] Jun 21, 2024 06:[address] (AP) ABDOMEN/PE LVIS (P): FLACA WEAVER [id number] -1950 M Exm Date: JUN 21, 2024@18:09 Req Phys: DELIA MARTINEZ Loc: [facility] EMERGENCY DEPT WALK-IN (Re Img Loc: CT IMAGING Service: [place] [address] (Case [id number] COMPLETE) CT (AP) ABDOMEN/PELVIS W CONTRAST(CT Detailed) CPT:28679 Contrast Media : Non-ionic Iodinated Reason for [...] PLASMA .CREAT EGFR(CKD-E >90 Ref: >=60 Allergies: ([place] only) TERAZOSIN (Mar 13, 2015) Defer to [...] 21, 2024 Date Verified: JUN 21, 2024 Job Lithographer E-Sig:/ALEXI/CARLOS A CUNNINGHAM DO Report: EXAMINATION: CT [...] Interpreting Staff: CARLOS A CUNNINGHAM DO, RADIOLOGIST (Job Lithographer) /CARLOS A ROWELL [facility] [...] Reporting Lab: [facility] [CLIA# [id number]] [place] [address] - - - - - - - [...] - PATHOLOGY REPORT Accession No. [id number] - - - - - - - [...] - PATHOLOGY REPORT Accession No. [id number] - - - - - - - [...] Second circumferential surgical margin, en face; E-F: Chemical Educator diverticula; G: Chemical Educator section of mesentery; H: Random junior sales representative section of additional adipose tissue [...] Performed By: [facility] [CLIA# [id number]] [place] [address] $FTR - - - - - - [...] - - FLACA WEAVER STANDARD FORM 515 ID:[id number] SEX:M :1950 AGE: 73 LOC:70516 ADM:Jun DX:DIVERTICULITIS PCP: Jatinder Cabrera /alexi/ EDUARDO PALOMARES MD STAFF PATHOLOGIST Signed: 07/06/2024 10:40 EDUARDO PALOMARES [facility] Jun 22, 2024 01:15 PM LR MICROBIOLOGY RE PORT: Reporting Lab: [facility] [CLIA# [id number]] [place] [address] Accession [UID]: [id number] [[id number]] Received: Jun 22, 2024@13:38 Collection sample: FLUID Collection date: Jun 22, 2024 13:15 Provider: ANGELA HOLDEN Comment on specimen: LLQ ABSCESS, RECEIVED IN ANAEROBIC TRANSPORT VIAL Test(s) ordered: GRAM STAIN.................... completed: Jun 22, 2024 15:03 CULTURE & SUSCEPTIBILITY...... completed: Jun 25, 2024 * BACTERIOLOGY FINAL REPORT => Jun 25, 2024 10:56 [facility] CODE: [id number] GRAM STAIN: DIRECT SMEAR of specimen before [...] Performed By: [facility] [CLIA# [id number]] [place] [address] [facility] Jun 22, 2024 01:15 PM LR MICROBIOLOGY RE PORT: Reporting Lab: [facility] [CLIA# [id number]] [place] [address] Accession [UID]: [id number] [[id number]] Received: Jun 22, 2024@13:38 Collection sample: FLUID Collection date: Jun 22, 2024 13:15 Provider: ANGELA HOLDEN Comment on specimen: LLQ ABSCESS, RECEIVED IN ANAEROBIC TRANSPORT VIAL Test(s) ordered: ANAEROBIC CULTURE............. completed: Jun 28, 2024 * BACTERIOLOGY FINAL REPORT => Jun 28, 2024 10:08 TECH CODE: [id number] CULTURE RESULTS: HEAVY GROWTH MIXED ANAEROBES Comment: [...] Performed By: [facility] [CLIA# [id number]] [place] [address] [facility] Jun 21, 2024 06:12 PM LR MICROBIOLOGY RE PORT: Reporting Lab: [facility] [CLIA# [id number]] [place] [address] Accession [UID]: [id number] [[id number]] Received: Jun 21, 2024@18:12 Collection sample: BLOOD [...] Performed By: [facility] [CLIA# [id number]] [place] [address] [facility] Jun 21, 2024 06:11 PM LR MICROBIOLOGY RE PORT: Reporting Lab: [facility] [CLIA# [id number]] [place] [address] Accession [UID]: [id number] [[id number]] Received: Jun 21, 2024@18:11 Collection sample: BLOOD [...] Performed By: [facility] [CLIA# [id number]] [place] [address] [facility] Jun 08, 2024 11:00 AM LR MICROBIOLOGY RE PORT: Reporting Lab: [facility] [CLIA# [id number]] [place] [address] Accession [UID]: [id number] [[id number]] Received: Jun 08, 2024@11:00 Collection sample: URINE Collection date: Jun 08, 2024 11:00 Provider: MARYBETH POWELL Comment on specimen: urine Test(s) ordered: CULTURE & SUSCEPTIBILITY...... completed: Jun 09, 2024 * BACTERIOLOGY FINAL REPORT => Jun 09, 2024 19:12 TECH CODE: [id number] CULTURE RESULTS: ESCHERICHIA COLI - Quantity: >100,000 [...] Performed By: [facility] [CLIA# [id number]] [place] [address] [facility]
--- OUTSIDE RECORDS SUMMARY | 2024-07-16 07:18 | XMS_ITS ---
[place] DAILY HOSPITALIZATION DATA [facility] Encounter Summary Created on: July 16, 2024 MEG FLACADARCI LOBO : 1950 Sex: Male Author Name [facility] [place] [facility] [place] [facility] [place] Address [address] [place] [address] Care Team Providers Care Physical Therapist Aide Name Role Phone JATINDER CABRERA Primary Care [...] PART A Sep 29, 2016 PART A [phone] JUDY WEAVER PATIENT Selected Encounter This section includes the information on record at [place] for the Encounter. Date/Time Encounter Type Encounter Description Reason Pro vider Source Jul 06, 2024 04:27 PM Inpatient Visit DAILY HOSPITALIZATION DATA BERENICE BRASHER E Encounter Template Text not used by [place] Plan of Treatment: Future Appointments (+ 6 months) and Future Tests (+/- 45 days) The Plan of Treatment section includes future care activities for the patient from all [place] treatmentfacilities. This section includes future appointments and [...] 2024 08:15 AM AMBULATORY - NONE [facility] Active, Pending, and Scheduled Orders This section includes a listing of several types of active, pending, and scheduled orders, including clinic medications orders, diagnostic test orders, procedure orders and consult orders; where the start date of the order is 45 days before the date of the Encounter or 45 days after the date of theEncounter. The data comes from all [place] treatment facilities. Test Date/Time Test Type Test Details Facility Name May 28, 2024 12:00 AM Laboratory - Blood Bank Order TYPE & SCREEN - LAB BLOOD SP [facility] Jun 08, 2024 09:57 AM Laboratory - Chemi stry Order URINALYSIS URINE WC ONCE [facility] Jun 12, 2024 12:00 AM Laboratory - Chemi stry Order BNP PLASMA SP ONCE [facility] Jun 21, 2024 05:45 PM Laboratory - Blood Bank Order TYPE & SCREEN - LAB BLOOD WC [facility] Jul 03, 2024 12:00 AM Laboratory - Blood Bank Order TYPE & SCREEN - LAB BLOOD [facility] Jul 16, 2024 12:00 AM Laboratory - Chemi stry Order CBC BLOOD SP ONCE [facility] Jul 17, 2024 12:00 AM Laboratory - Chemi stry Order BASIC METABOLIC PANEL+MG PLASMA SP ONCE [facility] Lab Results: +/- 30 days of the encounter This section includes the Chemistry and Hematology Lab Results on record with [place] for the patient. Radiology Reports and Pathology Reports are provided separately, in subsequent sections. Lab Results This section contains the Chemistry/Hematology Results that were resulted 30 days before or 30 daysafter the date of the Encounter. Date/Time Source Result Type Result - Unit Interpretation Reference Range Comment Jul 10, 2024 07:16 AM [facility] PHOSPHORUS Specimen Type: PLASMA No comment entered. Ordering Provider: JUANCARLOS ECHOLS S Report Released Date/Time: Jul 09, 2024 12:23 PM Reporting Lab: [facility] [address] Performing Lab: [facility] [address] PHOSPHORUS 3.0 mg/dL 2.3-4.3 Jul 10, 2024 07:16 AM [facility] BASIC METABOLIC PANEL+MG Specimen Type: PLASMA No comment entered. Ordering Provider: JUANCARLOS ECHOLS S Report Released Date/Time: Jul 09, 2024 12:23 PM Reporting Lab: [facility] [address] Performing Lab: [facility] [address] CREATININE 0.7 mg/dL 0.7-1.2 UREA NITROGEN 27 mg/dL H 8-26 GLUCOSE 104 mg/dL H 70-100 SODIUM 133 mmol/L L 136-145 POTASSIUM 4.3 mmol/L 3.5-5.1 CHLORIDE 102 mmol/L 98-107 CO2 19 mmol/L L 22-29 CALCIUM 10.1 mg/dL 8.4-10.2 MAGNESIUM 1.9 mg/dL 1.6-2.6 ANION GAP 12 mmol/L 5-15 .CREAT EGFR(CKD-EPI) >90 >60 Jul 10, 2024 07:15 AM [facility] CBC Specimen Type: BLOOD No comment entered. Ordering Provider: JUANCARLOS ECHOLS Report Released Date/Time: Jul 09, 2024 12:23 PM Reporting Lab: [facility] [address] Performing Lab: [facility] [address] WBC 18.8 H 4.0-11.0 RBC 5.08 4.60-6.20 HGB 15.9 g/dL 13.5-17.9 HCT 46.8 41.0-54.0 MCV 92.1 fL 80.0-100.0 MCH 31.3 pg 27.0-33.0 MCHC 34.0 g/dL 32.0-37.5 PLT 479 H 150-400 MPV 10.2 fL 9.1-13.0 RDW 13.7 11.5-14.5 Jul 09, 2024 07:08 AM [facility] CBC Specimen Type: BLOOD No comment entered. Ordering Provider: QUYNH WEISS Report Released Date/Time: Jul 08, 2024 06:18 PM Reporting Lab: [facility] [address] Performing Lab: [facility] [address] WBC 15.3 H 4.0-11.0 RBC 4.91 4.60-6.20 HGB 15.1 g/dL 13.5-17.9 HCT 45.7 41.0-54.0 MCV 93.1 fL 80.0-100.0 MCH 30.8 pg 27.0-33.0 MCHC 33.0 g/dL 32.0-37.5 PLT 443 H 150-400 MPV 10.0 fL 9.1-13.0 RDW 13.5 11.5-14.5 Jul 08, 2024 10:50 AM [facility] URINALYSIS Specimen Type: URINE No comment entered. Ordering Provider: KATELYNN PERSON Report Released Date/Time: Jul 08, 2024 08:41 AM Reporting Lab: [facility] [address] Performing Lab: [facility] [address] URINE COLOR YELLOW SPECIFIC GRAVITY >1.050 H [...] NEGATIVE NEGATIVE Jul 08, 2024 09:54 AM [facility] CBC Specimen Type: BLOOD Comment: Specimen received in Lab at: 0952 Ordering Provider: JUANCARLOS ECHOLS Report Released Date/Time: Jul 07, 2024 04:49 PM Reporting Lab: [facility] [address] Performing Lab: [facility] [address] WBC 17.5 H 4.0-11.0 RBC 4.88 4.60-6.20 HGB 14.9 g/dL 13.5-17.9 HCT 45.7 41.0-54.0 MCV 93.6 fL 80.0-100.0 MCH 30.5 pg 27.0-33.0 MCHC 32.6 g/dL 32.0-37.5 PLT 472 H 150-400 MPV 10.2 fL 9.1-13.0 RDW 13.7 11.5-14.5 Jul 08, 2024 09:54 AM [facility] PHOSPHORUS Specimen Type: PLASMA Comment: Specimen received in Lab at: 0952 Ordering Provider: BALAJADIA,MAR IA S Report Released Date/Time: Jul 07, 2024 04:49 PM Reporting Lab: [facility] [address] Performing Lab: [facility] [address] PHOSPHORUS 2.6 mg/dL 2.3-4.3 Jul 08, 2024 09:54 AM [facility] BASIC METABOLIC PANEL+MG Specimen Type: PLASMA Comment: Specimen received in Lab at: 0952 Ordering Provider: JUANCARLOS ECHOLS S Report Released Date/Time: Jul 07, 2024 04:49 PM Reporting Lab: [facility] [address] Performing Lab: [facility] [address] CREATININE 0.9 mg/dL 0.7-1.2 UREA NITROGEN 26 mg/dL 8-26 GLUCOSE 128 mg/dL H 70-100 SODIUM 134 mmol/L L 136-145 POTASSIUM 3.4 mmol/L L 3.5-5.1 CHLORIDE 100 mmol/L 98-107 CO2 24 mmol/L 22-29 CALCIUM 9.8 mg/dL 8.4-10.2 MAGNESIUM 1.8 mg/dL 1.6-2.6 ANION GAP 10 mmol/L 5-15 .CREAT EGFR(CKD-EPI) >90 >60 Jul 07, 2024 02:00 PM [facility] C DIFF PANEL Specimen Type: FECES No comment entered. Ordering Provider: JEVON ZAZUETA Report Released Date/Time: Jul 07, 2024 12:26 PM Reporting Lab: [facility] [address] Performing Lab: [facility] [address] C DIFF TOX B GENE PCR NEGATIVE Negative Jul 07, 2024 07:41 AM [facility] PHOSPHORUS Specimen Type: PLASMA No comment entered. Ordering Provider: JEVON ZAZUETA Report Released Date/Time: Jul 06, 2024 03:44 PM Reporting Lab: [facility] [address] Performing Lab: [facility] [address] PHOSPHORUS 3.1 mg/dL 2.3-4.3 Jul 07, 2024 07:41 AM [facility] BASIC METABOLIC PANEL+MG Specimen Type: PLASMA No comment entered. Ordering Provider: JEVON ZAZUETA Report Released Date/Time: Jul 06, 2024 03:44 PM Reporting Lab: [facility] [address] Performing Lab: [facility] [address] CREATININE 0.9 mg/dL 0.7-1.2 UREA NITROGEN 20 mg/dL 8-26 GLUCOSE 157 mg/dL H 70-100 SODIUM 136 mmol/L 136-145 POTASSIUM 3.7 mmol/L 3.5-5.1 CHLORIDE 102 mmol/L 98-107 CO2 21 mmol/L L 22-29 CALCIUM 9.8 mg/dL 8.4-10.2 MAGNESIUM 1.9 mg/dL 1.6-2.6 ANION GAP 13 mmol/L 5-15 .CREAT EGFR(CKD-EPI) >90 >60 Jul 07, 2024 07:40 AM [facility] CBC Specimen Type: BLOOD No comment entered. Ordering Provider: JEVON ZAZUETA Report Released Date/Time: Jul 06, 2024 03:44 PM Reporting Lab: [facility] [address] Performing Lab: [facility] [address] WBC 21.2 H 4.0-11.0 RBC 5.09 4.60-6.20 HGB 15.9 g/dL 13.5-17.9 HCT 48.3 41.0-54.0 MCV 94.9 fL 80.0-100.0 MCH 31.2 pg 27.0-33.0 MCHC 32.9 g/dL 32.0-37.5 PLT 500 H 150-400 MPV 10.3 fL 9.1-13.0 RDW 13.6 11.5-14.5 Jul 06, 2024 07:21 AM [facility] CBC Specimen Type: BLOOD No comment entered. Ordering Provider: JEVON ZAZUETA Report Released Date/Time: Jul 05, 2024 01:22 PM Reporting Lab: [facility] [address] Performing Lab: [facility] [address] WBC 18.0 H 4.0-11.0 RBC 4.83 4.60-6.20 HGB 14.6 g/dL 13.5-17.9 HCT 45.5 41.0-54.0 MCV 94.2 fL 80.0-100.0 MCH 30.2 pg 27.0-33.0 MCHC 32.1 g/dL 32.0-37.5 PLT 368 150-400 MPV 10.4 fL 9.1-13.0 RDW 13.6 11.5-14.5 Jul 06, 2024 07:21 AM [facility] PHOSPHORUS Specimen Type: PLASMA No comment entered. Ordering Provider: JEVON ZAZUETA Report Released Date/Time: Jul 05, 2024 01:22 PM Reporting Lab: [facility] [address] Performing Lab: [facility] [address] PHOSPHORUS 3.6 mg/dL 2.3-4.3 Jul 06, 2024 07:21 AM [facility] BASIC METABOLIC PANEL+MG Specimen Type: PLASMA No comment entered. Ordering Provider: JEVON ZAZUETA Report Released Date/Time: Jul 05, 2024 01:22 PM Reporting Lab: [facility] [address] Performing Lab: [facility] [address] CREATININE 0.7 mg/dL 0.7-1.2 UREA NITROGEN 12 mg/dL 8-26 GLUCOSE 108 mg/dL H 70-100 SODIUM 138 mmol/L 136-145 POTASSIUM 3.4 mmol/L L 3.5-5.1 CHLORIDE 104 mmol/L 98-107 CO2 20 mmol/L L 22-29 CALCIUM 9.3 mg/dL 8.4-10.2 MAGNESIUM 1.9 mg/dL 1.6-2.6 ANION GAP 14 mmol/L 5-15 .CREAT EGFR(CKD-EPI) >90 >60 Jul 05, 2024 07:17 AM [facility] MAGNESIUM Specimen Type: PLASMA No comment entered. Ordering Provider: JUANCARLOS ECHOLS S Report Released Date/Time: Jul 04, 2024 09:39 AM Reporting Lab: [facility] [address] Performing Lab: [facility] [address] MAGNESIUM 2.0 mg/dL 1.6-2.6 Jul 05, 2024 07:17 AM [facility] PHOSPHORUS Specimen Type: PLASMA No comment entered. Ordering Provider: JUANCARLOS ECHOLS S Report Released Date/Time: Jul 04, 2024 09:39 AM Reporting Lab: [facility] [address] Performing Lab: [facility] [address] PHOSPHORUS 2.0 mg/dL L 2.3-4.3 Jul 05, 2024 07:17 AM [facility] BASIC METABOLIC PANEL+MG Specimen Type: PLASMA No comment entered. Ordering Provider: JUANCARLOS ECHOLS S Report Released Date/Time: Jul 04, 2024 09:39 AM Reporting Lab: [facility] [address] Performing Lab: [facility] [address] CREATININE 0.7 mg/dL 0.7-1.2 UREA NITROGEN 12 mg/dL 8-26 GLUCOSE 84 mg/dL 70-100 SODIUM 135 mmol/L L 136-145 POTASSIUM 3.8 mmol/L 3.5-5.1 CHLORIDE 104 mmol/L 98-107 CO2 24 mmol/L 22-29 CALCIUM 9.3 mg/dL 8.4-10.2 MAGNESIUM 2.0 mg/dL 1.6-2.6 ANION GAP 7 mmol/L 5-15 .CREAT EGFR(CKD-EPI) >90 >60 Jul 05, 2024 07:16 AM [facility] CBC Specimen Type: BLOOD No comment entered. Ordering Provider: JUANCARLOS ECHOLS S Report Released Date/Time: Jul 04, 2024 09:39 AM Reporting Lab: [facility] [address] Performing Lab: [facility] [address] WBC 18.3 H 4.0-11.0 RBC 4.49 L 4.60-6.20 HGB 14.1 g/dL 13.5-17.9 HCT 43.4 41.0-54.0 MCV 96.7 fL 80.0-100.0 MCH 31.4 pg 27.0-33.0 MCHC 32.5 g/dL 32.0-37.5 PLT 317 150-400 MPV 10.0 fL 9.1-13.0 RDW 13.9 11.5-14.5 Jul 04, 2024 07:17 AM [facility] BASIC METABOLIC PANEL+MG Specimen Type: PLASMA No comment entered. Ordering Provider: GABINO CAMERON Report Released Date/Time: Jul 03, 2024 06:31 PM Reporting Lab: [facility] [address] Performing Lab: [facility] [address] CREATININE 0.7 mg/dL 0.7-1.2 UREA NITROGEN 16 mg/dL 8-26 GLUCOSE 129 mg/dL H 70-100 SODIUM 137 mmol/L 136-145 POTASSIUM 3.7 mmol/L 3.5-5.1 CHLORIDE 107 mmol/L 98-107 CO2 22 mmol/L 22-29 CALCIUM 9.0 mg/dL 8.4-10.2 MAGNESIUM 1.9 mg/dL 1.6-2.6 ANION GAP 8 mmol/L 5-15 .CREAT EGFR(CKD-EPI) >90 >60 Jul 04, 2024 07:17 AM [facility] PHOSPHORUS Specimen Type: PLASMA No comment entered. Ordering Provider: GABINO CAMERON Report Released Date/Time: Jul 03, 2024 06:31 PM Reporting Lab: [facility] [address] Performing Lab: [facility] [address] PHOSPHORUS 2.8 mg/dL 2.3-4.3 Jul 04, 2024 07:16 AM [facility] CBC Specimen Type: BLOOD No comment entered. Ordering Provider: GABINO CAMERON Report Released Date/Time: Jul 03, 2024 06:31 PM Reporting Lab: [facility] [address] Performing Lab: [facility] [address] WBC 20.6 H 4.0-11.0 RBC 4.63 4.60-6.20 HGB 14.2 g/dL 13.5-17.9 HCT 43.4 41.0-54.0 MCV 93.7 fL 80.0-100.0 MCH 30.7 pg 27.0-33.0 MCHC 32.7 g/dL 32.0-37.5 PLT 329 150-400 MPV 10.4 fL 9.1-13.0 RDW 13.8 11.5-14.5 Jul 04, 2024 07:16 AM [facility] CBC & DIFF Specimen Type: BLOOD Comment: Manual Differential Performed Ordering Provider: GABINO CAMERON Report Released Date/Time: Jul 03, 2024 06:31 PM Reporting Lab: [facility] [address] Performing Lab: [facility] [address] WBC 20.6 H 4.0-11.0 RBC 4.63 4.60-6.20 [...] MORPHOLOGY PRESENT Jul 04, 2024 07:15 AM [facility] BNP Specimen Type: PLASMA No comment entered. Ordering Provider: GABINO CAMERON Report Released Date/Time: Jul 03, 2024 06:31 PM Reporting Lab: [facility] [address] Performing Lab: [facility] [address] BNP 292 pg/mL H <99 Jul 03, 2024 10:32 PM [facility] FINGERSTICK GLUCOSE Specimen Type: BLOOD Comment: Save Result Nurse Notified Ordering Provider: KATELYNN PERSON Report Released Date/Time: Jul 03, 2024 10:50 PM Reporting Lab: [facility] [address] Performing Lab: [facility] [address] FINGERSTICK GLUCOSE 126 mg/dL H 70-100 Jul 03, 2024 05:33 PM [facility] FINGERSTICK GLUCOSE Specimen Type: BLOOD Comment: Save Result Nurse Notified Ordering Provider: KATELYNN PERSON Report Released Date/Time: Jul 03, 2024 05:46 PM Reporting Lab: [facility] [address] Performing Lab: [facility] [address] FINGERSTICK GLUCOSE 141 mg/dL H 70-100 Jul 03, 2024 02:31 PM [facility] POC ABG/ELECTROLYTES Specimen Type: ARTERIAL BLOOD Comment: FIO2 = 97% Patient Temp: 36.0 C Sample Type = ARTERIAL Ordering Provider: MAZIN ARREDONDO Report Released Date/Time: Jul 03, 2024 01:48 PM Reporting Lab: [facility] [address] Performing Lab: [facility] [address] POC PH 7.387 7.35-7.45 POC PCO2 34.4 [...] H 80.0-105.0 Jul 03, 2024 01:05 PM [facility] POC ABG/ELECTROLYTES Specimen Type: ARTERIAL BLOOD Comment: FIO2 = 53% Patient Temp: 36.2 C Sample Type = ARTERIAL Ordering Provider: MAZIN ARREDONDO Report Released Date/Time: Jul 03, 2024 01:48 PM Reporting Lab: [facility] [address] Performing Lab: [facility] [address] POC PH 7.280 L 7.35-7.45 POC PCO2 [...] mm[Hg] 80.0-105.0 Jul 03, 2024 06:15 AM [facility] URINALYSIS Specimen Type: URINE No comment entered. Ordering Provider: MARYBETH POWELL Report Released Date/Time: Jun 12, 2024 04:01 PM Reporting Lab: [facility] [address] Performing Lab: [facility] [address] URINE COLOR YELLOW SPECIFIC GRAVITY 1.031 1.003-1.03 [...] 250 NEGATIVE Jul 03, 2024 06:13 AM [facility] CBC Specimen Type: BLOOD No comment entered. Ordering Provider: MARYBETH POWELL Report Released Date/Time: Jun 12, 2024 03:59 PM Reporting Lab: [facility] [address] Performing Lab: [facility] [address] WBC 15.8 H 4.0-11.0 RBC 5.11 4.60-6.20 HGB 16.1 g/dL 13.5-17.9 HCT 49.1 41.0-54.0 MCV 96.1 fL 80.0-100.0 MCH 31.5 pg 27.0-33.0 MCHC 32.8 g/dL 32.0-37.5 PLT 357 150-400 MPV 9.8 fL 9.1-13.0 RDW 13.7 11.5-14.5 Jun 24, 2024 09:50 AM [facility] BASIC METABOLIC PANEL+MG Specimen Type: PLASMA Comment: Specimen received in Lab at: 0948 Ordering Provider: JEVON ZAZUETA Report Released Date/Time: Jun 23, 2024 06:07 PM Reporting Lab: [facility] [address] Performing Lab: [facility] [address] CREATININE 0.8 mg/dL 0.7-1.2 UREA NITROGEN 13 mg/dL 8-26 GLUCOSE 135 mg/dL H 70-100 SODIUM 135 mmol/L L 136-145 POTASSIUM 3.6 mmol/L 3.5-5.1 CHLORIDE 103 mmol/L 98-107 CO2 24 mmol/L 22-29 CALCIUM 9.2 mg/dL 8.4-10.2 MAGNESIUM 1.9 mg/dL 1.6-2.6 ANION GAP 8 mmol/L 5-15 .CREAT EGFR(CKD-EPI) >90 >60 Jun 24, 2024 09:50 AM [facility] CBC Specimen Type: BLOOD Comment: Specimen received in Lab at: 0948 Ordering Provider: JEVON ZAZUETA Report Released Date/Time: Jun 23, 2024 06:07 PM Reporting Lab: [facility] [address] Performing Lab: [facility] [address] WBC 15.5 H 4.0-11.0 RBC 4.93 4.60-6.20 HGB 15.2 g/dL 13.5-17.9 HCT 46.5 41.0-54.0 MCV 94.3 fL 80.0-100.0 MCH 30.8 pg 27.0-33.0 MCHC 32.7 g/dL 32.0-37.5 PLT 223 150-400 MPV 11.4 fL 9.1-13.0 RDW 13.9 11.5-14.5 Jun 23, 2024 07:52 AM [facility] COMPREHENSIVE METABOLIC PANEL+MG Specimen Type: PLASMA No comment entered. Ordering Provider: JEVON ZAZUETA Report Released Date/Time: Jun 22, 2024 05:51 PM Reporting Lab: [facility] [address] Performing Lab: [facility] [address] CREATININE 0.7 mg/dL 0.7-1.2 UREA NITROGEN 16 [...] >90 >60 Jun 23, 2024 07:52 AM [facility] CBC & DIFF Specimen Type: BLOOD Comment: Automated Differential Performed Ordering Provider: JEVON ZAZUETA Report Released Date/Time: Jun 22, 2024 05:51 PM Reporting Lab: [facility] [address] Performing Lab: [facility] [address] WBC 14.9 H 4.0-11.0 RBC 5.09 4.60-6.20 [...] 0.1 0.0-0.1 Jun 22, 2024 06:10 PM [facility] CBC Specimen Type: BLOOD No comment entered. Ordering Provider: JEVON ZAZUETA Report Released Date/Time: Jun 22, 2024 05:51 PM Reporting Lab: [facility] [address] Performing Lab: [facility] [address] WBC 16.9 H 4.0-11.0 RBC 5.28 4.60-6.20 HGB 16.9 g/dL 13.5-17.9 HCT 50.4 41.0-54.0 MCV 95.5 fL 80.0-100.0 MCH 32.0 pg 27.0-33.0 MCHC 33.5 g/dL 32.0-37.5 PLT 223 150-400 MPV 10.9 fL 9.1-13.0 RDW 14.0 11.5-14.5 Jun 22, 2024 06:10 PM [facility] COMPREHENSIVE METABOLIC PANEL+MG Specimen Type: PLASMA No comment entered. Ordering Provider: JEVON ZAZUETA Report Released Date/Time: Jun 22, 2024 05:51 PM Reporting Lab: [facility] [address] Performing Lab: [facility] [address] CREATININE 0.7 mg/dL 0.7-1.2 UREA NITROGEN 17 [...] >90 >60 Jun 21, 2024 06:48 PM [facility] URINALYSIS Specimen Type: URINE No comment entered. Ordering Provider: DELIA MARTINEZ Report Released Date/Time: Jun 21, 2024 05:45 PM Reporting Lab: [facility] [address] Performing Lab: [facility] [address] URINE COLOR YELLOW SPECIFIC GRAVITY 1.041 H [...] 500 NEGATIVE Jun 21, 2024 05:34 PM [facility] POC CREATININE Specimen Type: BLOOD No comment entered. Ordering Provider: DELIA MARTINEZ Report Released Date/Time: Jun 21, 2024 06:07 PM Reporting Lab: [facility] [address] Performing Lab: [facility] [address] POC CREATININE 1.1 mg/dL 0.6-1.3 Jun 21, 2024 05:30 PM [facility] POC ABG/LACTATE Specimen Type: VENOUS BLOOD No comment entered. Ordering Provider: DELIA MARTINEZ Report Released Date/Time: Jun 21, 2024 06:07 PM Reporting Lab: [facility] [address] Performing Lab: [facility] [address] POC PH 7.470 H 7.31-7.41 POC PCO2 31.2 mm[Hg] L 41.00-51 .0 0 POC PO2 46 mm[Hg] H 35.0-40.0 POC TCO2 24 mmol/L 24.0-29.0 POC HCO3 22.7 mmol/L L 23.0-28.0 POC BE ECT -1 mmol/L POC SO2 85 H 70-75 POC LACTATE 1.85 mmol/L 0.90-1.70 Jun 21, 2024 05:24 PM [facility] PROTHROMBIN TIME/INR Specimen Type: PLASMA No comment entered. Ordering Provider: DELIA MARTINEZ Report Released Date/Time: Jun 21, 2024 05:30 PM Reporting Lab: [facility] [address] Performing Lab: [facility] [address] .INR 1.2 H 0.8-1.1 .PT 13.9 s H 9.4-12.5 Jun 21, 2024 05:24 PM [facility] LIPASE Specimen Type: PLASMA No comment entered. Ordering Provider: DELIA MARTINEZ Report Released Date/Time: Jun 21, 2024 05:30 PM Reporting Lab: [facility] [address] Performing Lab: [facility] [address] LIPASE 32 U/L <60 Jun 21, 2024 05:24 PM [facility] EXTRA GOLD GEL TUBE Specimen Type: SERUM No comment entered. Ordering Provider: DELIA MARTINEZ Report Released Date/Time: Jun 21, 2024 05:41 PM Reporting Lab: [facility] [address] Performing Lab: [facility] [address] EXTRA GOLD GEL TUBE RECEIVED Jun 21, 2024 05:24 PM [facility] COMPREHENSIVE METABOLIC PANEL+MG Specimen Type: PLASMA No comment entered. Ordering Provider: DELIA MARTINEZ Report Released Date/Time: Jun 21, 2024 05:30 PM Reporting Lab: [facility] [address] Performing Lab: [facility] [address] CREATININE 0.9 mg/dL 0.7-1.2 UREA NITROGEN 29 [...] mg/dL <0.5 Jun 21, 2024 05:24 PM [facility] CBC & DIFF Specimen Type: BLOOD Comment: Manual Differential Performed Ordering Provider: DELIA MARTINEZ Report Released Date/Time: Jun 21, 2024 05:30 PM Reporting Lab: [facility] [phone] Performing Lab: [facility] [address] WBC 21.3 H 4.0-11.0 RBC 5.48 4.60-6.20 [...] MORPHOLOGY PRESENT Jun 08, 2024 10:59 AM [facility] PROTHROMBIN TIME/INR Specimen Type: PLASMA No comment entered. Ordering Provider: MARYBETH POWELL Report Released Date/Time: May 28, 2024 09:02 AM Reporting Lab: [facility] [phone] Performing Lab: [facility] [address] .INR 1.0 0.8-1.1 .PT 11.8 s 9.4-12.5 Jun 08, 2024 10:59 AM [facility] HEMOGLOBIN A1C Specimen Type: BLOOD Comment: [...] May 28, 2024 09:02 AM Reporting Lab: [facility] [phone] Performing Lab: [facility] [address] HEMOGLOBIN A1C 4.9 4.0-6.0 Jun 08, 2024 10:59 AM [facility] CBC Specimen Type: BLOOD No comment entered. Ordering Provider: MARYBETH POWELL Report Released Date/Time: May 28, 2024 09:02 AM Reporting Lab: [facility] [address] Performing Lab: [facility] [address] WBC 16.1 H 4.0-11.0 RBC 5.02 4.60-6.20 HGB 16.0 g/dL 13.5-17.9 HCT 47.1 41.0-54.0 MCV 93.8 fL 80.0-100.0 MCH 31.9 pg 27.0-33.0 MCHC 34.0 g/dL 32.0-37.5 PLT 228 150-400 MPV 10.3 fL 9.1-13.0 RDW 14.6 H 11.5-14.5 Jun 08, 2024 10:59 AM [facility] BASIC METABOLIC PANEL+MG Specimen Type: PLASMA No comment entered. Ordering Provider: MARYBETH POWELL Report Released Date/Time: May 28, 2024 09:02 AM Reporting Lab: [facility] [address] Performing Lab: [facility] [address] CREATININE 0.9 mg/dL 0.7-1.2 UREA NITROGEN 15 [...] PM 97.5 92 132/64 18 96 4 [facility] Jul 06, 2024 01:00 PM 4 [facility] Jul 06, 2024 12:18 PM 136/88 [facility] Jul 06, 2024 12:09 PM 5 [facility] Jul 06, 2024 09:11 AM 97 93 162/80 18 96 5 [facility] Social History: Smoking Status [...] 15, 2024 08:30 AM [id number] FORMER USER [facility] Tobacco Use History This section includes a history of the smoking, or tobacco-related health factors, that were collected on or before the date of the Encounter. The data comes from the [place] facility where the Encounter took place. Date/Time Smoking Status/Tobacco Use Comment F acility May 15, 2024 08:30 AM VA-TOBACCO QUIT 15 YRS OR MORE [facility] May 06, 2023 11:30 AM VA-TOBACCO FORMER USER [facility] May 06, 2023 11:30 AM VA-TOBACCO QUIT 15 YRS OR MORE [facility] Jun 04, 2022 09:00 AM VA-TOBACCO FORMER USER [facility] Jun 04, 2022 09:00 AM VA-TOBACCO QUIT 15 YRS OR MORE [facility] Jul 10, 2021 08:00 AM VA-TOBACCO FORMER USER [facility] Jul 10, 2021 08:00 AM VA-TOBACCO QUIT 5 TO < 15 YRS [facility] May 23, 2020 08:30 AM VA-TOBACCO FORMER USER [facility] May 23, 2020 08:30 AM VA-TOBACCO QUIT 5 TO < 15 YRS [facility] Mar 20, 2019 04:03 PM VA-TOBACCO FORMER USER [facility] Mar 20, 2019 04:03 PM VA-TOBACCO QUIT 5 TO < 15 YRS [facility] Mar 21, 2018 08:13 AM FORMER TOBACCO USER 7Y OR GREATE R [facility] Feb 24, 2017 09:24 AM FORMER TOBACCO USER 7Y OR GREATE R [facility] January 07, 2016 08:01 AM FORMER TOBACCO USE >1Y <7Y [facility] Feb 03, 2015 07:58 AM FORMER TOBACCO USE <1Y [facility] Feb 26, 2014 08:41 AM CURRENT TOBACCO USER [facility] May 13, 2011 01:45 PM CURRENT TOBACCO USER [facility] Advance Directives: All historical and current [...] VIEWS PA A ND LAT: FLACA WEAVER [id number] -1950 M Exm Date: JUL 08, 2024@10:09 Req Phys: KATELYNN PERSON Loc: 2KG07-08-2024@11:49 Img Loc: MAIN X-RAY Service: [place] [address] (Case 24 COMPLETE) CHEST 2 VIEWS PA AND LAT (RAD Detailed) CPT:41718 Reason for Study: Uptrending WBC, POD 5 Clinical History: [place] IS NOT under investigation for COVID-19 or is COVID-19 negative POD 5, work up for uptrending wbc Responsible provider name and phone number to notify for critical findings if other than user placing the order and pager listed below: User placing orders pager: Katelynn Person LAST CREATININE 0.9 (07/07/24) Report Status: Verified Date Reported: JUL 08, 2024 Date Verified: JUL 08, 2024 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 FINDINGS: Lungs: Clear. No focal consolidation. No pulmonary edema. Pleura: No pleural effusion or pneumothorax. Mediastinum: Normal size and contour. Bones: Unremarkable. Impression: No acute cardiopulmonary disease. READING PHYSICIAN: Sarbjit Vaughn M.D. -[phone] 07/08/2024 12:46 EST [facility] National Teleradiology Program [phone] (For Medical Practitioner Use Only) Attention Patients / Veterans: If you have questions or concerns about these test results, please contact your ordering provider or primary care team. Primary Interpreting Staff: RADIOLOGY,OUTSIDE SERVICE, Staff Physician / RADIOLOGY,OUTSIDE SERVICE [facility] Jul 08, 2024 10:[address] (AP) ABDOMEN/PE LVIS W CONTRAST: FLACA WEAVER [id number] -1950 M Ex Date: JUL 08, 2024@10:00 Req Phys: KATELYNN PERSON Pat Loc: G07-08-2024@12:07 Img Loc: CT IMAGING Service: [place] [address] (Case 22 COMPLETE) CT (AP) ABDOMEN/PELVIS W CONTRAST(CT Detailed) CPT:51846 Contrast Media : Non-ionic Iodinated Reason for [...] PLASMA .CREAT EGFR(CKD-E >90 Ref: >=60 Allergies: ([place] only) TERAZOSIN (Mar 13, 2015) Report Status: Verified Date Reported: JUL 08, 2024 Date Verified: JUL 08, 2024 Gimp Buttonhole Machine Operator E-Sig: Report: CT (AP) ABDOMEN/PELVIS W CONTRAST HISTORY: POD 5, Uptrending WBC - Concern for Abscess/other infection COMPARISON: June 21, 2024 TECHNIQUE: CT abdomen and pelvis was performed after intravenous contrast. Axial, sagittal and coronal reformatted images. The study was performed at the local [place] facility and images were sent to the [...] as noted above READING PHYSICIAN: Celestino Blanc -[phone] 07/08/2024 13:04 [facility] [email or web address] Teleradiology Program [phone] (For Medical Practitioner Use Only) Attention Patients / Veterans: If you have questions or concerns about these test results, please contact your ordering provider or primary care team. Primary Interpreting Staff: RADIOLOGY,OUTSIDE SERVICE, Staff Physician / RADIOLOGY,OUTSIDE SERVICE [facility] Jun 22, 2024 11:49 AM ABSCESS DRAIN PLAC EMENT PERITONEAL (P): FLACA WEAVER [id number] -1950 M Exm Date: JUN 22, 2024@11:49 Req Phys: ANGELA HOLDEN Loc: [facility]06-22-2024@17:14 Img Loc: INTERVENTIONAL RADIOLOGY Service: [place] [address] (Case [id number] COMPLETE) IR PERITONEAL/RETROPERITONEAL PER(ANI Detailed) CPT:40809 Reason for Study: diverticulitis with abscess (Case 3570 COMPLETE) IR MOD SEDATION 10-22 MIN (ANI Detailed) CPT:34882 Clinical History: IS NOT under investigation for COVID-19 or is COVID-19 negative 73 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 please place abscess drain. Contact number for responsible provider who can be reached for any questions or notifications of critical findings: [phone] n/a LAST CREATININE 0.9 (06/21/24) Report Status: Verified Date Reported: JUN 22, 2024 Date Verified: JUN 22, 2024 Gimp Buttonhole Machine Operator E-Sig:/ES/LISA PENDLETON MD Report: PROCEDURES: Placement [...] obtained. A pre-procedural Time-Out was performed per [facility] policy. The patient was placed in the supine position on the CT table. Preprocedural scan performed. The suprapubic region/lower abdominal wall was sterilely prepped and draped in the usual fashion.1% lidocaine without epinephrine was used for local anesthesia. Using real-time CT fluoroscopy, a 5 [place] [employer] catheter was advanced into the collection in the left pelvis. A wire was coiled in the collection. The tract into the collection was dilated to accommodate the 12 [place] locking pigtail drainage catheter. There was return [...] Primary Interpreting Staff: LISA PENDLETON MD, RADIOLOGIST (Gimp Buttonhole Machine Operator) /JRLISA [facility] Jun 22, 2024 11:[address] NEEDLE PLACEMEN T (P): FLACA WEAVER [id number] -1950 M Exm Date: JUN 22, 2024@11:48 Req Phys: ANGELA HOLDEN Loc: [facility]/06-22-2024@17:14 Img Loc: CT IMAGING [facility] [place] [address] (Case [id number] COMPLETE) CT SCAN FOR NEEDLE PLACEMENT (CT Detailed) CPT:85126 Reason for Study: l pelvic abscess drain Clinical History: Report Status: Verified Date Reported: JUN 22, 2024 Date Verified: JUN 22, 2024 Gimp Buttonhole Machine Operator E-Sig:/ES/LISA PENDLETON MD Report: PROCEDURES: Placement [...] obtained. A pre-procedural Time-Out was performed per [facility] policy. The patient was placed in the supine position on the CT table. Preprocedural scan performed. The suprapubic region/lower abdominal wall was sterilely prepped and draped in the usual fashion.1% lidocaine without epinephrine was used for local anesthesia. Using real-time CT fluoroscopy, a 5 [place] [employer]esis catheter was advanced into the collection in the left pelvis. A wire was coiled in the collection. The tract into the collection was dilated to accommodate the 12 [place] locking pigtail drainage catheter. There was return [...] sigmoid resection on 07/03/2024. Primary Interpreting Staff: LIAS PENDLETON MD, RADIOLOGIST (Gimp Buttonhole Machine Operator) /JRT LISA PENDLETON [facility] Jun 21, 2024 06:[address] (AP) ABDOMEN/PE LVIS (P): FLACA WEAVER [id number] -1950 M Exm Date: JUN 21, 2024@18:09 Req Phys: DELIA MARTINEZ Loc: [facility] (Re Img Loc: CT IMAGING Service: [place] [address] (Case [id number] COMPLETE) CT (AP) ABDOMEN/PELVIS W CONTRAST(CT Detailed) CPT:33866 Contrast Media : Non-ionic Iodinated Reason for [...] PLASMA .CREAT EGFR(CKD-E >90 Ref: >=60 Allergies: ([place] only) TERAZOSIN (Mar 13, 2015) Defer to [...] 21, 2024 Date Verified: JUN 21, 2024 Gimp Buttonhole Machine Operator E-Sig:/ALEXI/CARLOS A CUNNINGHAM DO Report: EXAMINATION: [...] Interpreting Staff: CARLOS A CUNNINGHAM DO, RADIOLOGIST (Gimp Buttonhole Machine Operator) /CARLOS A ROWELL [facility] Pathology Reports: +/- 30 days of [...] comes from all [place] treatment facilities. Date/Time Pathology Report Provider Source Jul 03, 2024 05:59 AM LR SURGICAL PATHOL OGY REPORT: LOCAL TITLE: LR SURGICAL PATHOLOGY REPORT STANDARD TITLE: PATHOLOGY REPORT DATE OF NOTE: JUL 06, 2024@10:40:48 ENTRY DATE: JUL 06, 2024@10:40:48 AUTHOR: EDUARDO PALOMARES EXP COSIGNER: URGENCY: STATUS: COMPLETED $APHDR Reporting Lab: [facility] [CLIA# [id number]] [place] [address] - - - - - - - [...] - PATHOLOGY REPORT Accession No. [id number] - - - - - - - [...] - PATHOLOGY REPORT Accession No. [id number] - - - - - - - [...] Second circumferential surgical margin, en face; E-F: Branch Examiner diverticula; G: Branch Examiner section of mesentery; H: Random patient services representative section of additional adipose tissue fragment. [...] Performing Laboratory: Surgical Pathology Report Performed By: [facility] [CLIA# [id number]] [place] [address] $FTR - - - - - - [...] - - FLACA WEAVER STANDARD FORM 515 ID:[id number] SEX:M :1950 AGE: 73 LOC:[id number] ADM:Jun DX:DIVERTICULITIS PCP: Jatinder Cabrera /alexi/ EDUARDO PALOMARES MD STAFF PATHOLOGIST Signed: 07/06/2024 10:40 EDUARDO PALOMARES [facility] Jun 22, 2024 01:15 PM LR MICROBIOLOGY RE PORT: Reporting Lab: [facility] [CLIA# [id number]] [place] [address] Accession [UID]: [id number] [[id number]] Received: Jun 22, 2024@13:38 Collection sample: FLUID Collection date: Jun 22, 2024 13:15 Provider: ANGELA HOLDEN Comment on specimen: LLQ ABSCESS, RECEIVED IN ANAEROBIC TRANSPORT VIAL Test(s) ordered: GRAM STAIN.................... completed: Jun 22, 2024 15:03 CULTURE & SUSCEPTIBILITY...... completed: Jun 25, 2024 * BACTERIOLOGY FINAL REPORT => Jun 25, 2024 10:56 TECH CODE: [id number] GRAM STAIN: DIRECT SMEAR of specimen before [...] -=--=--=--=--=--=--=-- Performing Laboratory: Bacteriology Report Performed By: [facility] [CLIA# [id number]] [place] [address] [facility] Jun 22, 2024 01:15 PM LR MICROBIOLOGY RE PORT: Reporting Lab: [facility] [CLIA# [id number]] [place] [address] Accession [UID]: [id number] [[id number]] Received: Jun 22, 2024@13:38 Collection sample: FLUID Collection date: Jun 22, 2024 13:15 Provider: ANGELA HOLDEN Comment on specimen: LLQ ABSCESS, RECEIVED IN ANAEROBIC TRANSPORT VIAL Test(s) ordered: ANAEROBIC CULTURE............. completed: Jun 28, 2024 * BACTERIOLOGY FINAL REPORT => Jun 28, 2024 10:08 TECH CODE: [id number] CULTURE RESULTS: HEAVY GROWTH MIXED ANAEROBES Comment: including the followin+ Bacteroides fragilis 4+ Bacteroides vulgatus 4+ Clostridium innocuum Beta-lactamase negative 4+ Bacteroides caccae 4+ Parvimonas micra 4+ Bacteroides uniformis 4+ Gemella morbillorum 4+ anaerobic small, Gram Positive Rods 4+ Bacteroides thetaiotaomicron Standard workup is now complete. Bacteriology Remark(s): THIS REPORT IS FINAL =--=--=--=--=--=--=--=--=--= --=--=--=--=--=--=--=--=--=- -=--=--=--=--=--=--=-- Performing Laboratory: Bacteriology Report Performed By: [facility] [CLIA# [id number]] [place] [address] [facility] Jun 21, 2024 06:12 PM LR MICROBIOLOGY RE PORT: Reporting Lab: [facility] [CLIA# [id number]] [place] [address] Accession [UID]: [id number] [[id number]] Received: Jun 21, 2024@18:12 Collection sample: BLOOD [...] -=--=--=--=--=--=--=-- Performing Laboratory: Bacteriology Report Performed By: [facility] [CLIA# [id number]] [place] [address] [facility] Jun 21, 2024 06:11 PM LR MICROBIOLOGY RE PORT: Reporting Lab: [facility] [CLIA# [id number]] [place] [address] Accession [UID]: [id number] [[id number]] Received: Jun 21, 2024@18:11 Collection sample: BLOOD [...] -=--=--=--=--=--=--=-- Performing Laboratory: Bacteriology Report Performed By: [facility] [CLIA# [id number]] [place] [address] [facility] Jun 08, 2024 11:00 AM LR MICROBIOLOGY RE PORT: Reporting Lab: [facility] [CLIA# [id number]] [place] [address] Accession [UID]: [id number] [[id number]] Received: Jun 08, 2024@11:00 Collection sample: URINE Collection date: Jun 08, 2024 11:00 Provider: MARYBETH POWELL Comment on specimen: urine Test(s) ordered: CULTURE & SUSCEPTIBILITY...... completed: Jun 09, 2024 * BACTERIOLOGY FINAL REPORT => Jun 09, 2024 19:12 TECH CODE: [id number] CULTURE RESULTS: ESCHERICHIA COLI - Quantity: >100,000 [...] -=--=--=--=--=--=--=-- Performing Laboratory: Bacteriology Report Performed By: [facility] [CLIA# [id number]] [place] [address] [facility]
--- OUTSIDE RECORDS SUMMARY | 2024-07-16 07:19 | XMS_ITS ---
[place] DAILY HOSPITALIZATION DATA [facility] HCS Encounter Summary Created on: July 16, 2024 MEG FLACADARCI LOBO : 1950 Sex: Male Author Name [facility] [place] [facility] [place] Address [address] [place] [address] Care Team Providers Care [employer] Worker Name Role Phone JATINDER CABRERA Primary [...] PART A Sep 29, 2016 PART A [id number] [phone] JUDY WEAVER PATIENT Selected Encounter This section includes the information on record at [place] for the Encounter. Date/Time Encounter Type Encounter Description Reason Pro vider Source Jul 08, 2024 11:16 AM Inpatient Visit DAILY HOSPITALIZATION DATA KATELYNN PERSON Alex Encounter Template Text not used by [place] [...] 2024 08:15 AM AMBULATORY - NONE [facility] Active, Pending, and Scheduled Orders This [...] & SCREEN - LAB BLOOD SP [facility] Jun 08, 2024 09:57 AM Laboratory - Chemi stry Order URINALYSIS URINE WC ONCE [facility] Jun 12, 2024 12:00 AM Laboratory - Chemi stry Order BNP PLASMA SP ONCE [facility] Jun 21, 2024 05:45 PM Laboratory - Blood Bank Order TYPE & SCREEN - LAB BLOOD [facility] Jul 03, 2024 12:00 AM Laboratory - Blood Bank Order TYPE & SCREEN - LAB BLOOD [facility] Jul 16, 2024 12:00 AM Laboratory - Chemi stry Order CBC BLOOD SP ONCE [facility] Jul 17, 2024 12:00 AM Laboratory - Chemi stry Order BASIC METABOLIC PANEL+MG PLASMA SP ONCE [facility] Lab Results: +/- 30 [...] Range Comment Jul 10, 2024 07:16 AM [facility] PHOSPHORUS Specimen Type: PLASMA No comment entered. Ordering Provider: JUANCARLOS ECHOLS S Report Released Date/Time: Jul 09, 2024 12:23 PM Reporting Lab: [facility] [address] Performing Lab: [facility] [address] PHOSPHORUS 3.0 mg/dL 2.3-4.3 Jul 10, 2024 07:16 AM [facility] BASIC METABOLIC PANEL+MG Specimen Type: PLASMA No comment entered. Ordering Provider: JUANCARLOS ECHOLS S Report Released Date/Time: Jul 09, 2024 12:23 PM Reporting Lab: [facility] [address] Performing Lab: [facility] [address] CREATININE 0.7 mg/dL 0.7-1.2 UREA NITROGEN 27 mg/dL H 8-26 GLUCOSE 104 mg/dL H 70-100 SODIUM 133 mmol/L L 136-145 POTASSIUM 4.3 mmol/L 3.5-5.1 CHLORIDE 102 mmol/L 98-107 CO2 19 mmol/L L 22-29 CALCIUM 10.1 mg/dL 8.4-10.2 MAGNESIUM 1.9 mg/dL 1.6-2.6 ANION GAP 12 mmol/L 5-15 .CREAT EGFR(CKD-EPI) >90 >60 Jul 10, 2024 07:15 AM [facility] CBC Specimen Type: BLOOD No comment entered. Ordering Provider: JUANCARLOS ECHOLS Report Released Date/Time: Jul 09, 2024 12:23 PM Reporting Lab: [facility] [address] Performing Lab: [facility] [address] WBC 18.8 H 4.0-11.0 RBC 5.08 4.60-6.20 HGB 15.9 g/dL 13.5-17.9 HCT 46.8 41.0-54.0 MCV 92.1 fL 80.0-100.0 MCH 31.3 pg 27.0-33.0 MCHC 34.0 g/dL 32.0-37.5 PLT 479 H 150-400 MPV 10.2 fL 9.1-13.0 RDW 13.7 11.5-14.5 Jul 09, 2024 07:08 AM [facility] CBC Specimen Type: BLOOD No comment entered. Ordering Provider: QUYNH WEISS AV Report Released Date/Time: Jul 08, 2024 06:18 PM Reporting Lab: [facility] [address] Performing Lab: [facility] [address] WBC 15.3 H 4.0-11.0 RBC 4.91 4.60-6.20 HGB 15.1 g/dL 13.5-17.9 HCT 45.7 41.0-54.0 MCV 93.1 fL 80.0-100.0 MCH 30.8 pg 27.0-33.0 MCHC 33.0 g/dL 32.0-37.5 PLT 443 H 150-400 MPV 10.0 fL 9.1-13.0 RDW 13.5 11.5-14.5 Jul 08, 2024 10:50 AM [facility] URINALYSIS Specimen Type: URINE No comment entered. Ordering Provider: KATELYNN PERSON Report Released Date/Time: Jul 08, 2024 08:41 AM Reporting Lab: [facility] [address] Performing Lab: [facility] [address] URINE COLOR YELLOW SPECIFIC GRAVITY >1.050 H [...] NEGATIVE NEGATIVE Jul 08, 2024 09:54 AM [facility] CBC Specimen Type: BLOOD Comment: Specimen received in Lab at: [id number] Ordering Provider: JUANCARLOS ECHOLS Report Released Date/Time: Jul 07, 2024 04:49 PM Reporting Lab: [facility] [address] Performing Lab: [facility] [address] WBC 17.5 H 4.0-11.0 RBC 4.88 4.60-6.20 HGB 14.9 g/dL 13.5-17.9 HCT 45.7 41.0-54.0 MCV 93.6 fL 80.0-100.0 MCH 30.5 pg 27.0-33.0 MCHC 32.6 g/dL 32.0-37.5 PLT 472 H 150-400 MPV 10.2 fL 9.1-13.0 RDW 13.7 11.5-14.5 Jul 08, 2024 09:54 AM [facility] PHOSPHORUS Specimen Type: PLASMA Comment: Specimen received in Lab at: [id number] Ordering Provider: BALAJADIA,MAR IA S Report Released Date/Time: Jul 07, 2024 04:49 PM Reporting Lab: [facility] [address] Performing Lab: [facility] [address] PHOSPHORUS 2.6 mg/dL 2.3-4.3 Jul 08, 2024 09:54 AM [facility] BASIC METABOLIC PANEL+MG Specimen Type: PLASMA Comment: Specimen received in Lab at: 0952 Ordering Provider: JUANCARLOS ECHOLS S Report Released Date/Time: Jul 07, 2024 04:49 PM Reporting Lab: [facility] [address] Performing Lab: [facility] [address] CREATININE 0.9 mg/dL 0.7-1.2 UREA NITROGEN 26 mg/dL 8-26 GLUCOSE 128 mg/dL H 70-100 SODIUM 134 mmol/L L 136-145 POTASSIUM 3.4 mmol/L L 3.5-5.1 CHLORIDE 100 mmol/L 98-107 CO2 24 mmol/L 22-29 CALCIUM 9.8 mg/dL 8.4-10.2 MAGNESIUM 1.8 mg/dL 1.6-2.6 ANION GAP 10 mmol/L 5-15 .CREAT EGFR(CKD-EPI) >90 >60 Jul 07, 2024 02:00 PM [facility] C DIFF PANEL Specimen Type: FECES No comment entered. Ordering Provider: JEVON ZAZUETA Report Released Date/Time: Jul 07, 2024 12:26 PM Reporting Lab: [facility] [address] Performing Lab: [facility] [address] C DIFF TOX B GENE PCR NEGATIVE Negative Jul 07, 2024 07:41 AM [facility] PHOSPHORUS Specimen Type: PLASMA No comment entered. Ordering Provider: JEVON ZAZUETA Report Released Date/Time: Jul 06, 2024 03:44 PM Reporting Lab: [facility] [address] Performing Lab: [facility] [address] PHOSPHORUS 3.1 mg/dL 2.3-4.3 Jul 07, 2024 07:41 AM [facility] BASIC METABOLIC PANEL+MG Specimen Type: PLASMA No comment entered. Ordering Provider: JEVON ZAZUETA Report Released Date/Time: Jul 06, 2024 03:44 PM Reporting Lab: [facility] [address] Performing Lab: [facility] [address] CREATININE 0.9 mg/dL 0.7-1.2 UREA NITROGEN 20 mg/dL 8-26 GLUCOSE 157 mg/dL H 70-100 SODIUM 136 mmol/L 136-145 POTASSIUM 3.7 mmol/L 3.5-5.1 CHLORIDE 102 mmol/L 98-107 CO2 21 mmol/L L 22-29 CALCIUM 9.8 mg/dL 8.4-10.2 MAGNESIUM 1.9 mg/dL 1.6-2.6 ANION GAP 13 mmol/L 5-15 .CREAT EGFR(CKD-EPI) >90 >60 Jul 07, 2024 07:40 AM [facility] CBC Specimen Type: BLOOD No comment entered. Ordering Provider: JEVON ZAZUETA Report Released Date/Time: Jul 06, 2024 03:44 PM Reporting Lab: [facility] [address] Performing Lab: [facility] [address] WBC 21.2 H 4.0-11.0 RBC 5.09 4.60-6.20 HGB 15.9 g/dL 13.5-17.9 HCT 48.3 41.0-54.0 MCV 94.9 fL 80.0-100.0 MCH 31.2 pg 27.0-33.0 MCHC 32.9 g/dL 32.0-37.5 PLT 500 H 150-400 MPV 10.3 fL 9.1-13.0 RDW 13.6 11.5-14.5 Jul 06, 2024 07:21 AM [facility] CBC Specimen Type: BLOOD No comment entered. Ordering Provider: JEVON ZAZUETA Report Released Date/Time: Jul 05, 2024 01:22 PM Reporting Lab: [facility] [address] Performing Lab: [facility] [address] WBC 18.0 H 4.0-11.0 RBC 4.83 4.60-6.20 HGB 14.6 g/dL 13.5-17.9 HCT 45.5 41.0-54.0 MCV 94.2 fL 80.0-100.0 MCH 30.2 pg 27.0-33.0 MCHC 32.1 g/dL 32.0-37.5 PLT 368 150-400 MPV 10.4 fL 9.1-13.0 RDW 13.6 11.5-14.5 Jul 06, 2024 07:21 AM [facility] PHOSPHORUS Specimen Type: PLASMA No comment entered. Ordering Provider: JEVON ZAZUETA Report Released Date/Time: Jul 05, 2024 01:22 PM Reporting Lab: [facility] [address] Performing Lab: [facility] [address] PHOSPHORUS 3.6 mg/dL 2.3-4.3 Jul 06, 2024 07:21 AM [facility] BASIC METABOLIC PANEL+MG Specimen Type: PLASMA No comment entered. Ordering Provider: JEVON ZAZUETA Report Released Date/Time: Jul 05, 2024 01:22 PM Reporting Lab: [facility] [address] Performing Lab: [facility] [address] CREATININE 0.7 mg/dL 0.7-1.2 UREA NITROGEN 12 mg/dL 8-26 GLUCOSE 108 mg/dL H 70-100 SODIUM 138 mmol/L 136-145 POTASSIUM 3.4 mmol/L L 3.5-5.1 CHLORIDE 104 mmol/L 98-107 CO2 20 mmol/L L 22-29 CALCIUM 9.3 mg/dL 8.4-10.2 MAGNESIUM 1.9 mg/dL 1.6-2.6 ANION GAP 14 mmol/L 5-15 .CREAT EGFR(CKD-EPI) >90 >60 Jul 05, 2024 07:17 AM [facility] MAGNESIUM Specimen Type: PLASMA No comment entered. Ordering Provider: JUANCARLOS ECHOLS S Report Released Date/Time: Jul 04, 2024 09:39 AM Reporting Lab: [facility] [address] Performing Lab: [facility] [address] MAGNESIUM 2.0 mg/dL 1.6-2.6 Jul 05, 2024 07:17 AM [facility] PHOSPHORUS Specimen Type: PLASMA No comment entered. Ordering Provider: JUANCARLOS ECHOLS S Report Released Date/Time: Jul 04, 2024 09:39 AM Reporting Lab: [facility] [address] Performing Lab: [facility] [address] PHOSPHORUS 2.0 mg/dL L 2.3-4.3 Jul 05, 2024 07:17 AM [facility] BASIC METABOLIC PANEL+MG Specimen Type: PLASMA No comment entered. Ordering Provider: JUANCARLOS ECHOLS S Report Released Date/Time: Jul 04, 2024 09:39 AM Reporting Lab: [facility] [address] Performing Lab: [facility] [address] CREATININE 0.7 mg/dL 0.7-1.2 UREA NITROGEN 12 mg/dL 8-26 GLUCOSE 84 mg/dL 70-100 SODIUM 135 mmol/L L 136-145 POTASSIUM 3.8 mmol/L 3.5-5.1 CHLORIDE 104 mmol/L 98-107 CO2 24 mmol/L 22-29 CALCIUM 9.3 mg/dL 8.4-10.2 MAGNESIUM 2.0 mg/dL 1.6-2.6 ANION GAP 7 mmol/L 5-15 .CREAT EGFR(CKD-EPI) >90 >60 Jul 05, 2024 07:16 AM [facility] CBC Specimen Type: BLOOD No comment entered. Ordering Provider: JUANCARLOS ECHOLS S Report Released Date/Time: Jul 04, 2024 09:39 AM Reporting Lab: [facility] [address] Performing Lab: [facility] [address] WBC 18.3 H 4.0-11.0 RBC 4.49 L 4.60-6.20 HGB 14.1 g/dL 13.5-17.9 HCT 43.4 41.0-54.0 MCV 96.7 fL 80.0-100.0 MCH 31.4 pg 27.0-33.0 MCHC 32.5 g/dL 32.0-37.5 PLT 317 150-400 MPV 10.0 fL 9.1-13.0 RDW 13.9 11.5-14.5 Jul 04, 2024 07:17 AM [facility] PHOSPHORUS Specimen Type: PLASMA No comment entered. Ordering Provider: GABINO CAMERON Report Released Date/Time: Jul 03, 2024 06:31 PM Reporting Lab: [facility] [address] Performing Lab: [facility] [address] PHOSPHORUS 2.8 mg/dL 2.3-4.3 Jul 04, 2024 07:17 AM [facility] BASIC METABOLIC PANEL+MG Specimen Type: PLASMA No comment entered. Ordering Provider: GABINO CAMERON Report Released Date/Time: Jul 03, 2024 06:31 PM Reporting Lab: [facility] [address] Performing Lab: [facility] [address] CREATININE 0.7 mg/dL 0.7-1.2 UREA NITROGEN 16 mg/dL 8-26 GLUCOSE 129 mg/dL H 70-100 SODIUM 137 mmol/L 136-145 POTASSIUM 3.7 mmol/L 3.5-5.1 CHLORIDE 107 mmol/L 98-107 CO2 22 mmol/L 22-29 CALCIUM 9.0 mg/dL 8.4-10.2 MAGNESIUM 1.9 mg/dL 1.6-2.6 ANION GAP 8 mmol/L 5-15 .CREAT EGFR(CKD-EPI) >90 >60 Jul 04, 2024 07:16 AM [facility] CBC Specimen Type: BLOOD No comment entered. Ordering Provider: GABINO CAMERON Report Released Date/Time: Jul 03, 2024 06:31 PM Reporting Lab: [facility] [address] Performing Lab: [facility] [address] WBC 20.6 H 4.0-11.0 RBC 4.63 4.60-6.20 HGB 14.2 g/dL 13.5-17.9 HCT 43.4 41.0-54.0 MCV 93.7 fL 80.0-100.0 MCH 30.7 pg 27.0-33.0 MCHC 32.7 g/dL 32.0-37.5 PLT 329 150-400 MPV 10.4 fL 9.1-13.0 RDW 13.8 11.5-14.5 Jul 04, 2024 07:16 AM [facility] CBC & DIFF Specimen Type: BLOOD Comment: Manual Differential Performed Ordering Provider: GABINO CAMERON Report Released Date/Time: Jul 03, 2024 06:31 PM Reporting Lab: [facility] [address] Performing Lab: [facility] [address] WBC 20.6 H 4.0-11.0 RBC 4.63 4.60-6.20 [...] MORPHOLOGY PRESENT Jul 04, 2024 07:15 AM [facility] BNP Specimen Type: PLASMA No comment entered. Ordering Provider: GABINO CAMERON Report Released Date/Time: Jul 03, 2024 06:31 PM Reporting Lab: [facility] [address] Performing Lab: [facility] [address] BNP 292 pg/mL H <99 Jul 03, 2024 10:32 PM [facility] FINGERSTICK GLUCOSE Specimen Type: BLOOD Comment: Save Result Nurse Notified Ordering Provider: KATELYNN PERSON Report Released Date/Time: Jul 03, 2024 10:50 PM Reporting Lab: [facility] [address] Performing Lab: [facility] [address] FINGERSTICK GLUCOSE 126 mg/dL H 70-100 Jul 03, 2024 05:33 PM [facility] FINGERSTICK GLUCOSE Specimen Type: BLOOD Comment: Save Result Nurse Notified Ordering Provider: KATELYNN PERSON Report Released Date/Time: Jul 03, 2024 05:46 PM Reporting Lab: [facility] [address] Performing Lab: [facility] [address] FINGERSTICK GLUCOSE 141 mg/dL H 70-100 Jul 03, 2024 02:31 PM [facility] POC ABG/ELECTROLYTES Specimen Type: ARTERIAL BLOOD Comment: FIO2 = 97% Patient Temp: 36.0 C Sample Type = ARTERIAL Ordering Provider: MAZIN ARREDONDO Report Released Date/Time: Jul 03, 2024 01:48 PM Reporting Lab: [facility] [address] Performing Lab: [facility] [address] POC PH 7.387 7.35-7.45 POC PCO2 34.4 [...] H 80.0-105.0 Jul 03, 2024 01:05 PM [facility] POC ABG/ELECTROLYTES Specimen Type: ARTERIAL BLOOD Comment: FIO2 = 53% Patient Temp: 36.2 C Sample Type = ARTERIAL Ordering Provider: MAZIN ARREDONDO Report Released Date/Time: Jul 03, 2024 01:48 PM Reporting Lab: [facility] [address] Performing Lab: [facility] [address] POC PH 7.280 L 7.35-7.45 POC PCO2 [...] mm[Hg] 80.0-105.0 Jul 03, 2024 06:15 AM [facility] URINALYSIS Specimen Type: URINE No comment entered. Ordering Provider: MARYBETH POWELL Report Released Date/Time: Jun 12, 2024 04:01 PM Reporting Lab: [facility] [address] Performing Lab: [facility] [address] URINE COLOR YELLOW SPECIFIC GRAVITY 1.031 1.003-1.03 [...] 250 NEGATIVE Jul 03, 2024 06:13 AM [facility] CBC Specimen Type: BLOOD No comment entered. Ordering Provider: MARYBETH POWELL Report Released Date/Time: Jun 12, 2024 03:59 PM Reporting Lab: [facility] [address] Performing Lab: [facility] [address] WBC 15.8 H 4.0-11.0 RBC 5.11 4.60-6.20 HGB 16.1 g/dL 13.5-17.9 HCT 49.1 41.0-54.0 MCV 96.1 fL 80.0-100.0 MCH 31.5 pg 27.0-33.0 MCHC 32.8 g/dL 32.0-37.5 PLT 357 150-400 MPV 9.8 fL 9.1-13.0 RDW 13.7 11.5-14.5 Jun 24, 2024 09:50 AM [facility] BASIC METABOLIC PANEL+MG Specimen Type: PLASMA Comment: Specimen received in Lab at: 0948 Ordering Provider: JEVON ZAZUETA Report Released Date/Time: Jun 23, 2024 06:07 PM Reporting Lab: [facility] [address] Performing Lab: [facility] [address] CREATININE 0.8 mg/dL 0.7-1.2 UREA NITROGEN 13 mg/dL 8-26 GLUCOSE 135 mg/dL H 70-100 SODIUM 135 mmol/L L 136-145 POTASSIUM 3.6 mmol/L 3.5-5.1 CHLORIDE 103 mmol/L 98-107 CO2 24 mmol/L 22-29 CALCIUM 9.2 mg/dL 8.4-10.2 MAGNESIUM 1.9 mg/dL 1.6-2.6 ANION GAP 8 mmol/L 5-15 .CREAT EGFR(CKD-EPI) >90 >60 Jun 24, 2024 09:50 AM [facility] CBC Specimen Type: BLOOD Comment: Specimen received in Lab at: 0948 Ordering Provider: JEVON ZAZUETA Report Released Date/Time: Jun 23, 2024 06:07 PM Reporting Lab: [facility] [address] Performing Lab: [facility] [address] WBC 15.5 H 4.0-11.0 RBC 4.93 4.60-6.20 HGB 15.2 g/dL 13.5-17.9 HCT 46.5 41.0-54.0 MCV 94.3 fL 80.0-100.0 MCH 30.8 pg 27.0-33.0 MCHC 32.7 g/dL 32.0-37.5 PLT 223 150-400 MPV 11.4 fL 9.1-13.0 RDW 13.9 11.5-14.5 Jun 23, 2024 07:52 AM [facility] COMPREHENSIVE METABOLIC PANEL+MG Specimen Type: PLASMA No comment entered. Ordering Provider: JEVON ZAZUETA Report Released Date/Time: Jun 22, 2024 05:51 PM Reporting Lab: [facility] [address] Performing Lab: [facility] [address] CREATININE 0.7 mg/dL 0.7-1.2 UREA NITROGEN 16 [...] >90 >60 Jun 23, 2024 07:52 AM [facility] CBC & DIFF Specimen Type: BLOOD Comment: Automated Differential Performed Ordering Provider: JEVON ZAZUETA Report Released Date/Time: Jun 22, 2024 05:51 PM Reporting Lab: [facility] [address] Performing Lab: [facility] [address] WBC 14.9 H 4.0-11.0 RBC 5.09 4.60-6.20 [...] 0.1 0.0-0.1 Jun 22, 2024 06:10 PM [facility] CBC Specimen Type: BLOOD No comment entered. Ordering Provider: JEVON ZAZUETA Report Released Date/Time: Jun 22, 2024 05:51 PM Reporting Lab: [facility] [address] Performing Lab: [facility] [address] WBC 16.9 H 4.0-11.0 RBC 5.28 4.60-6.20 HGB 16.9 g/dL 13.5-17.9 HCT 50.4 41.0-54.0 MCV 95.5 fL 80.0-100.0 MCH 32.0 pg 27.0-33.0 MCHC 33.5 g/dL 32.0-37.5 PLT 223 150-400 MPV 10.9 fL 9.1-13.0 RDW 14.0 11.5-14.5 Jun 22, 2024 06:10 PM [facility] COMPREHENSIVE METABOLIC PANEL+MG Specimen Type: PLASMA No comment entered. Ordering Provider: JEVON ZAZUETA Report Released Date/Time: Jun 22, 2024 05:51 PM Reporting Lab: [facility] [address] Performing Lab: [facility] [address] CREATININE 0.7 mg/dL 0.7-1.2 UREA NITROGEN 17 [...] >90 >60 Jun 21, 2024 06:48 PM [facility] URINALYSIS Specimen Type: URINE No comment entered. Ordering Provider: DELIA MARTINEZ Report Released Date/Time: Jun 21, 2024 05:45 PM Reporting Lab: [facility] [address] Performing Lab: [facility] [address] URINE COLOR YELLOW SPECIFIC GRAVITY 1.041 H [...] 500 NEGATIVE Jun 21, 2024 05:34 PM [facility] POC CREATININE Specimen Type: BLOOD No comment entered. Ordering Provider: DELIA MARTINEZ Report Released Date/Time: Jun 21, 2024 06:07 PM Reporting Lab: [facility] [address] Performing Lab: [facility] [address] POC CREATININE 1.1 mg/dL 0.6-1.3 Jun 21, 2024 05:30 PM [facility] POC ABG/LACTATE Specimen Type: VENOUS BLOOD No comment entered. Ordering Provider: DELIA MARTINEZ Report Released Date/Time: Jun 21, 2024 06:07 PM Reporting Lab: [facility] [address] Performing Lab: [facility] [address] POC PH 7.470 H 7.31-7.41 POC PCO2 31.2 mm[Hg] L 41.00-51 .0 0 POC PO2 46 mm[Hg] H 35.0-40.0 POC TCO2 24 mmol/L 24.0-29.0 POC HCO3 22.7 mmol/L L 23.0-28.0 POC BE ECT -1 mmol/L POC SO2 85 H 70-75 POC LACTATE 1.85 mmol/L 0.90-1.70 Jun 21, 2024 05:24 PM [facility] PROTHROMBIN TIME/INR Specimen Type: PLASMA No comment entered. Ordering Provider: DELIA MARTINEZ Report Released Date/Time: Jun 21, 2024 05:30 PM Reporting Lab: [facility] [address] Performing Lab: [facility] [address] .INR 1.2 H 0.8-1.1 .PT 13.9 s H 9.4-12.5 Jun 21, 2024 05:24 PM [facility] LIPASE Specimen Type: PLASMA No comment entered. Ordering Provider: DELIA MARTINEZ Report Released Date/Time: Jun 21, 2024 05:30 PM Reporting Lab: [facility] [address] Performing Lab: [facility] [address] LIPASE 32 U/L <60 Jun 21, 2024 05:24 PM [facility] EXTRA GOLD GEL TUBE Specimen Type: SERUM No comment entered. Ordering Provider: DELIA MARTINEZ Report Released Date/Time: Jun 21, 2024 05:41 PM Reporting Lab: [facility] [address] Performing Lab: [facility] [address] EXTRA GOLD GEL TUBE RECEIVED Jun 21, 2024 05:24 PM [facility] COMPREHENSIVE METABOLIC PANEL+MG Specimen Type: PLASMA No comment entered. Ordering Provider: DELIA MARTINEZ Report Released Date/Time: Jun 21, 2024 05:30 PM Reporting Lab: [facility] [address] Performing Lab: [facility] [address] CREATININE 0.9 mg/dL 0.7-1.2 UREA NITROGEN 29 [...] mg/dL <0.5 Jun 21, 2024 05:24 PM [facility] CBC & DIFF Specimen Type: BLOOD Comment: Manual Differential Performed Ordering Provider: DELIA MARTINEZ Report Released Date/Time: Jun 21, 2024 05:30 PM Reporting Lab: [facility] [id number] Performing Lab: [facility] [id number] WBC 21.3 H 4.0-11.0 RBC 5.48 4.60-6.20 [...] ABS BASO 0.0 0.0-0.2 .RBC MORPHOLOGY PRESENT Vital Signs: All taken on the encounter date This section contains inpatient and outpatient Vital Signs collected on the date of the Encounter. Date/Time Temperature Pulse Blood Pressure Respiratory Rate SP02 Pain Height Weight Body Mass Index Source Jul 08, 2024 09:33 PM 97.9 91 134/69 16 92 3 [facility] Jul 08, 2024 05:29 PM 98.2 64 121/67 16 97 3 [facility] Jul 08, 2024 09:25 AM 97.6 70 127/56 18 98 0 [facility] Social History: Smoking Status (Most current) [...] 15, 2024 08:30 AM VA-TOBACCO FORMER USER [facility] Tobacco Use History This section includes a history of the smoking, or tobacco-related health factors, that were collected on or before the date of the Encounter. The data comes from the [place] facility where the Encounter took place. Date/Time Smoking Status/Tobacco Use Comment F acility May 15, 2024 08:30 AM VA-TOBACCO QUIT 15 YRS OR MORE [facility] May 06, 2023 11:30 AM VA-TOBACCO FORMER USER [facility] May 06, 2023 11:30 AM VA-TOBACCO QUIT 15 YRS OR MORE [facility] Jun 04, 2022 09:00 AM VA-TOBACCO FORMER USER [facility] Jun 04, 2022 09:00 AM VA-TOBACCO QUIT 15 YRS OR MORE [facility] Jul 10, 2021 08:00 AM VA-TOBACCO FORMER USER [facility] Jul 10, 2021 08:00 AM VA-TOBACCO QUIT 5 TO < 15 YRS [facility] May 23, 2020 08:30 AM VA-TOBACCO FORMER USER [facility] May 23, 2020 08:30 AM VA-TOBACCO QUIT 5 TO < 15 YRS [facility] Mar 20, 2019 04:03 PM VA-TOBACCO FORMER USER [facility] Mar 20, 2019 04:03 PM VA-TOBACCO QUIT 5 TO < 15 YRS [facility] Mar 21, 2018 08:13 AM FORMER TOBACCO USER 7Y OR GREATE R [facility] Feb 24, 2017 09:24 AM FORMER TOBACCO USER 7Y OR GREATE R [facility] January 07, 2016 08:01 AM FORMER TOBACCO USE >1Y <7Y [facility] Feb 03, 2015 07:58 AM FORMER TOBACCO USE <1Y [facility] Feb 26, 2014 08:41 AM CURRENT TOBACCO USER [facility] May 13, 2011 01:45 PM CURRENT TOBACCO USER [facility] Advance Directives: All historical [...] comes from all [facility]. Date Advance Directives Provider Source Mar 23, 2016 CLINICAL WARNING [facility] Radiology Reports: +/- 30 [...] VIEWS PA A ND LAT: FLACA WEAVER [id number] -[id number] M Exm Date: JUL 08, 2024@10:09 Req Phys: KATELYNN PERSON Pat Loc: [facility]/07-08-2024@11:49 Img Loc: MAIN X-RAY Service: [place] [address] (Case 24 COMPLETE) CHEST 2 VIEWS PA AND LAT (RAD Detailed) CPT:16569 Reason for Study: Uptrending WBC, POD 5 Clinical History: [place] IS NOT under investigation for COVID-19 or is COVID-19 negative POD 5, work up for uptrending wbc Responsible provider name and phone number to notify for critical findings if other than user placing the order and pager listed below: User placing orders pager: Katelynn Person LAST CREATININE 0.9 (07/07/24) Report Status: Verified Date Reported: JUL 08, 2024 Date Verified: JUL 08, 2024 Nondestructive Tester E-Sig: Report: CHEST 2 VIEWS PA AND [place] HISTORY: Uptrending WBC, POD 5 COMPARISON: CT chest 11/12/2022 TECHNIQUE: Frontal and lateral views of the chest, submitted to the [place] National Teleradiology Program (NTP) for interpretation. FINDINGS: Lungs: Clear. No focal consolidation. No pulmonary edema. Pleura: No pleural effusion or pneumothorax. Mediastinum: Normal size and contour. Bones: Unremarkable. Impression: No acute cardiopulmonary disease. READING PHYSICIAN: Sarbjit Vaughn M.D. -[phone] 07/08/2024 12:46 EST [facility] National Teleradiology Program [phone] (For Medical Practitioner Use Only) Attention Patients / Veterans: If you have questions or concerns about these test results, please contact your ordering provider or primary care team. Primary Interpreting Staff: RADIOLOGY,OUTSIDE SERVICE, Staff Physician / RADIOLOGY,OUTSIDE SERVICE [facility] Jul 08, 2024 10:[address] (AP) ABDOMEN/PE LVIS W CONTRAST: MEGFLACA YAMIL [id number] -1950 Ex Date: JUL 08, 2024@10:00 Req Phys: KATELYNN PERSON Loc: 2K/07-08-2024@12:07 Img Loc: CT IMAGING Service: [place] [address] (Case 22 COMPLETE) CT (AP) ABDOMEN/PELVIS W CONTRAST(CT Detailed) CPT:98337 Contrast Media : Non-ionic Iodinated Reason for [...] 08, 2024 Date Verified: JUL 08, 2024 Nondestructive Tester E-Sig: Report: CT (AP) ABDOMEN/PELVIS W CONTRAST HISTORY: POD 5, Uptrending WBC - Concern for Abscess/other infection COMPARISON: June 21, 2024 TECHNIQUE: CT abdomen and pelvis was performed after intravenous contrast. Axial, sagittal and coronal reformatted images. The study was performed at the local [place] facility and images were sent to the [place] National Teleradiology Program (NTP) for interpretation. Number [...] as noted above READING PHYSICIAN: Celestino Blanc -[phone] 07/08/2024 13:04 EST [facility] [employer] Teleradiology Program [phone] (For Medical Practitioner Use Only) Attention Patients / Veterans: If you have questions or concerns about these test results, please contact your ordering provider or primary care team. Primary Interpreting Staff: RADIOLOGY,OUTSIDE SERVICE, Staff Physician / RADIOLOGY,OUTSIDE SERVICE [facility] Jun 22, 2024 11:49 AM ABSCESS DRAIN PLAC EMENT PERITONEAL (P): MEGFLACADARCI LOBO [id number] -1950 M Exm Date: JUN 22, 2024@11:49 Req Phys: ANGELA HOLDEN [facility] Loc: [facility]/06-22-2024@17:14 Img Loc: INTERVENTIONAL RADIOLOGY Service: [place] [address] (Case [id number] COMPLETE) IR PERITONEAL/RETROPERITONEAL PER(ANI Detailed) CPT:89726 Reason for Study: diverticulitis with abscess (Case 3570 COMPLETE) IR MOD SEDATION 10-22 MIN (ANI Detailed) CPT:48902 Clinical History: [place] IS NOT under investigation for COVID-19 or is COVID-19 negative 73 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 please place abscess drain. Contact number for responsible provider who can be reached for any questions or notifications of critical findings: [phone] n/a LAST CREATININE 0.9 (06/21/24) Report Status: Verified Date Reported: JUN 22, 2024 Date Verified: JUN 22, 2024 Nondestructive Tester E-Sig:/ES/LISA PENDLETON MD Report: PROCEDURES: Placement of [...] obtained. A pre-procedural Time-Out was performed per [facility] policy. The patient was placed in the supine position on the CT table. Preprocedural scan performed. The suprapubic region/lower abdominal wall was sterilely prepped and draped in the usual fashion.1% lidocaine without epinephrine was used for local anesthesia. Using real-time CT fluoroscopy, a 5 Mosotho Playdomesis catheter was advanced into the collection in the left pelvis. A wire was coiled in the collection. The tract into the collection was dilated to accommodate the 12 Mosotho locking pigtail drainage catheter. There was return [...] Primary Interpreting Staff: LISA PENDLETON MD, RADIOLOGIST (Nondestructive Tester) /JRT LISA PENDLETON [facility] Jun 22, 2024 11:[address] NEEDLE PLACEMEN T (P): FLACA WEAVER [id number] -1950 M Exm Date: JUN 22, 2024@11:48 Req Phys: ANGELA HOLDEN [facility] Loc: [facility]/06-22-2024@17:14 [facility] Loc: CT IMAGING Service: [place] [address] (Case [id number] COMPLETE) CT SCAN FOR NEEDLE PLACEMENT (CT Detailed) CPT:53738 Reason for Study: l pelvic abscess drain Clinical History: Report Status: Verified Date Reported: JUN 22, 2024 Date Verified: JUN 22, 2024 Nondestructive Tester E-Sig:/ES/LISA PENDLETON MD Report: PROCEDURES: Placement of [...] obtained. A pre-procedural Time-Out was performed per [facility] policy. The patient was placed in the supine position on the CT table. Preprocedural scan performed. The suprapubic region/lower abdominal wall was sterilely prepped and draped in the usual fashion.1% lidocaine without epinephrine was used for local anesthesia. Using real-time CT fluoroscopy, a 5 Mosotho Playdomesis catheter was advanced into the collection in the left pelvis. A wire was coiled in the collection. The tract into the collection was dilated to accommodate the 12 Mosotho locking pigtail drainage catheter. There was return [...] Primary Interpreting Staff: LISA PENDLETON MD, RADIOLOGIST (Nondestructive Tester) /JRT LISA PENDLETON [facility] Jun 21, 2024 06:[address] (AP) ABDOMEN/PE LVIS (P): MEGFLACA YAMIL [id number] -1950 Ex Date: JUN 21, 2024@18:09 Req Phys: DELIA MARTINEZ Loc: [facility] EMERGENCY DEPT WALK-IN (Re Img Loc: CT IMAGING Service: [place] [address] (Case [id number] COMPLETE) CT (AP) ABDOMEN/PELVIS W CONTRAST(CT Detailed) CPT:12887 Contrast Media : Non-ionic Iodinated Reason for [...] Allergies: ([place] only) TERAZOSIN (Mar 13, 2015) Defer to [...] 21, 2024 Date Verified: JUN 21, 2024 Nondestructive Tester E-Sig:/ES/CARLOS A CUNNINGHAM DO Report: EXAMINATION: CT [...] Interpreting Staff: CARLOS A CUNNINGHAM DO, RADIOLOGIST (Nondestructive Tester) /CARLOS A ROWELL [facility] Pathology Reports: +/- 30 [...] COSIGNER: URGENCY: STATUS: COMPLETED $APHDR Reporting Lab: [facility] [CLIA# [id number]] [place] [address] - - - - - - - [...] - PATHOLOGY REPORT Accession No. [id number] - - - - - - - [...] - PATHOLOGY REPORT Accession No. [id number] - - - - - - - [...] Second circumferential surgical margin, en face; E-F: Enterprise Application Architect diverticula; G: Enterprise Application Architect section of mesentery; H: Random customer support representative section of additional adipose tissue [...] One colonic tissue ring, bisected transversely. [facility]: Microscopic examination performed. DIAGNOSIS: 1. Colon, sigmoid, sigmoidectomy-- - Diverticulosis with perforation and focal abscess formation 2. Colon, anastomotic rings, excision-- - Viable colonic mucosa without diagnostic abnormality /es/ EDUARDO PALOMARES MD STAFF PATHOLOGIST Signed Jul 06, 2024@10:40 Performing Laboratory: Surgical Pathology Report Performed By: [facility] [CLIA# [id number]] [place] [address] $FTR - - - - - - [...] - - FLACA WEAVER STANDARD FORM 515 ID:[id number] SEX:M :1950 AGE: 73 LOC:[id number] ADM:Jun DX:DIVERTICULITIS PCP: Jatinder Cabrera /alexi/ EDUARDO PALOMARES MD STAFF PATHOLOGIST Signed: 07/06/2024 10:40 EDUARDO PALOMARES [facility] Jun 22, 2024 01:15 PM LR MICROBIOLOGY RE PORT: Reporting Lab: [facility] [CLIA# [id number]] [place] [address] Accession [UID]: [id number] [[id number]] Received: Jun 22, 2024@13:38 Collection sample: FLUID Collection date: Jun 22, 2024 13:15 Provider: ANGELA HOLDEN Comment on specimen: LLQ ABSCESS, RECEIVED IN ANAEROBIC TRANSPORT VIAL Test(s) ordered: GRAM STAIN.................... completed: Jun 22, 2024 15:03 CULTURE & SUSCEPTIBILITY...... completed: Jun 25, 2024 * BACTERIOLOGY FINAL REPORT => Jun 25, 2024 10:56 TECH CODE: [id number] GRAM STAIN: DIRECT SMEAR of specimen before [...] -=--=--=--=--=--=--=-- Performing Laboratory: Bacteriology Report Performed By: [facility] [CLIA# [id number]] [place] [address] [facility] Jun 22, 2024 01:15 PM LR MICROBIOLOGY RE PORT: Reporting Lab: [facility] [CLIA# [id number]] [place] [address] Accession [UID]: [id number] [[id number]] Received: Jun 22, 2024@13:38 Collection sample: FLUID Collection date: Jun 22, 2024 13:15 Provider: ANGELA HOLDEN Comment on specimen: LLQ ABSCESS, RECEIVED IN ANAEROBIC TRANSPORT VIAL Test(s) ordered: ANAEROBIC CULTURE............. completed: Jun 28, 2024 * BACTERIOLOGY FINAL REPORT => Jun 28, 2024 10:08 TECH CODE: [id number] CULTURE RESULTS: HEAVY GROWTH MIXED ANAEROBES Comment: including the followin+ Bacteroides fragilis 4+ Bacteroides vulgatus 4+ Clostridium innocuum Beta-lactamase negative 4+ Bacteroides caccae 4+ Parvimonas micra 4+ Bacteroides uniformis 4+ Gemella morbillorum 4+ anaerobic small, Gram Positive Rods 4+ Bacteroides thetaiotaomicron Standard workup is now complete. Bacteriology Remark(s): THIS REPORT IS FINAL =--=--=--=--=--=--=--=--=--= --=--=--=--=--=--=--=--=--=- -=--=--=--=--=--=--=-- Performing Laboratory: Bacteriology Report Performed By: [facility] [CLIA# [id number]] [place] [address] [facility] Jun 21, 2024 06:12 PM LR MICROBIOLOGY RE PORT: Reporting Lab: [facility] [CLIA# [id number]] [place] [address] Accession [UID]: [id number] [[id number]] Received: Jun 21, 2024@18:12 Collection sample: BLOOD [...] -=--=--=--=--=--=--=-- Performing Laboratory: Bacteriology Report Performed By: [facility] [CLIA# [id number]] [place] [address] [facility] Jun 21, 2024 06:11 PM LR MICROBIOLOGY RE PORT: Reporting Lab: [facility] [CLIA# [id number]] [place] [address] Accession [UID]: [id number] [[id number]] Received: Jun 21, 2024@18:11 Collection sample: BLOOD [...] -=--=--=--=--=--=--=-- Performing Laboratory: Bacteriology Report Performed By: [facility] [CLIA# [id number]] [place] [address] [facility] Jun 08, 2024 11:00 AM LR MICROBIOLOGY RE PORT: Reporting Lab: [facility] [CLIA# [id number]] [place] [address] Accession [UID]: [id number] [[id number]] Received: Jun 08, 2024@11:00 Collection sample: URINE Collection date: Jun 08, 2024 11:00 Provider: MARYBETH POWELL Comment on specimen: urine Test(s) ordered: CULTURE & SUSCEPTIBILITY...... completed: Jun 09, 2024 * BACTERIOLOGY FINAL REPORT => Jun 09, 2024 19:12 TECH CODE: [id number] CULTURE RESULTS: ESCHERICHIA COLI - Quantity: >100,000 [...] -=--=--=--=--=--=--=-- Performing Laboratory: Bacteriology Report Performed By: [facility] [CLIA# [id number]] [place] [address] [facility]
--- OUTSIDE RECORDS SUMMARY | 2024-07-16 07:19 | XMS_ITS ---
[place] DAILY HOSPITALIZATION DATA [facility]CS Encounter Summary Created on: July 16, 2024 MEG FLACA YAMIL : 1950 Sex: Male Author Name [facility] [facility] [place] Address [address] [place] [address] Care Team Providers Care Lamination Spinner Name Role Phone JATINDER CABRERA Primary Care [...] PART A Sep 29, 2016 PART A [id number] [phone] JUDY WEAVER PATIENT Selected Encounter This section includes the information on record at [place] for the Encounter. Date/Time Encounter Type Encounter Description Reason Pro vider Source Jul 07, 2024 03:37 PM Inpatient Visit DAILY HOSPITALIZATION DATA LINDA ARREDONDO OT G IHE Encounter Template Text not used [...] 2024 08:15 AM AMBULATORY - NONE [facility] Active, Pending, and Scheduled Orders [...] TYPE & SCREEN - LAB BLOOD SP [facility] Jun 08, 2024 09:57 AM Laboratory - Chemi stry Order URINALYSIS URINE WC ONCE [facility] Jun 12, 2024 12:00 AM Laboratory - Chemi stry Order BNP PLASMA SP ONCE [facility] Jun 21, 2024 05:45 PM Laboratory - Blood Bank Order TYPE & SCREEN - LAB BLOOD WC [facility] Jul 03, 2024 12:00 AM Laboratory - Blood Bank Order TYPE & SCREEN - LAB BLOOD [facility] Jul 16, 2024 12:00 AM Laboratory - Chemi stry Order CBC BLOOD SP ONCE [facility] Jul 17, 2024 12:00 AM Laboratory - Chemi stry Order BASIC METABOLIC PANEL+MG PLASMA SP ONCE [facility] Lab Results: +/- 30 [...] Range Comment Jul 10, 2024 07:16 AM [facility] PHOSPHORUS Specimen Type: PLASMA No comment entered. Ordering Provider: JUANCARLOS ECHOLS S Report Released Date/Time: Jul 09, 2024 12:23 PM Reporting Lab: [facility] [address] Performing Lab: [facility] [address] PHOSPHORUS 3.0 mg/dL 2.3-4.3 Jul 10, 2024 07:16 AM [facility] BASIC METABOLIC PANEL+MG Specimen Type: PLASMA No comment entered. Ordering Provider: JUANCARLOS ECHOLS S Report Released Date/Time: Jul 09, 2024 12:23 PM Reporting Lab: [facility] [phone] Performing Lab: [facility] [address] CREATININE 0.7 mg/dL 0.7-1.2 UREA NITROGEN 27 mg/dL H 8-26 GLUCOSE 104 mg/dL H 70-100 SODIUM 133 mmol/L L 136-145 POTASSIUM 4.3 mmol/L 3.5-5.1 CHLORIDE 102 mmol/L 98-107 CO2 19 mmol/L L 22-29 CALCIUM 10.1 mg/dL 8.4-10.2 MAGNESIUM 1.9 mg/dL 1.6-2.6 ANION GAP 12 mmol/L 5-15 .CREAT EGFR(CKD-EPI) >90 >60 Jul 10, 2024 07:15 AM [facility] CBC Specimen Type: BLOOD No comment entered. Ordering Provider: JUANCARLOS ECHOLS Report Released Date/Time: Jul 09, 2024 12:23 PM Reporting Lab: [facility] [address] Performing Lab: [facility] [address] WBC 18.8 H 4.0-11.0 RBC 5.08 4.60-6.20 HGB 15.9 g/dL 13.5-17.9 HCT 46.8 41.0-54.0 MCV 92.1 fL 80.0-100.0 MCH 31.3 pg 27.0-33.0 MCHC 34.0 g/dL 32.0-37.5 PLT 479 H 150-400 MPV 10.2 fL 9.1-13.0 RDW 13.7 11.5-14.5 Jul 09, 2024 07:08 AM [facility] CBC Specimen Type: BLOOD No comment entered. Ordering Provider: QUYNH WEISS AV Report Released Date/Time: Jul 08, 2024 06:18 PM Reporting Lab: [facility] [address] Performing Lab: [facility] [address] WBC 15.3 H 4.0-11.0 RBC 4.91 4.60-6.20 HGB 15.1 g/dL 13.5-17.9 HCT 45.7 41.0-54.0 MCV 93.1 fL 80.0-100.0 MCH 30.8 pg 27.0-33.0 MCHC 33.0 g/dL 32.0-37.5 PLT 443 H 150-400 MPV 10.0 fL 9.1-13.0 RDW 13.5 11.5-14.5 Jul 08, 2024 10:50 AM [facility] URINALYSIS Specimen Type: URINE No comment entered. Ordering Provider: KATELYNN PERSON Report Released Date/Time: Jul 08, 2024 08:41 AM Reporting Lab: [facility] [address] Performing Lab: [facility] [address] URINE COLOR YELLOW SPECIFIC GRAVITY >1.050 H [...] NEGATIVE NEGATIVE Jul 08, 2024 09:54 AM [facility] CBC Specimen Type: BLOOD Comment: Specimen received in Lab at: [id number] Ordering Provider: JUANCARLOS ECHOLS Report Released Date/Time: Jul 07, 2024 04:49 PM Reporting Lab: [facility] [address] Performing Lab: [facility] [address] WBC 17.5 H 4.0-11.0 RBC 4.88 4.60-6.20 HGB 14.9 g/dL 13.5-17.9 HCT 45.7 41.0-54.0 MCV 93.6 fL 80.0-100.0 MCH 30.5 pg 27.0-33.0 MCHC 32.6 g/dL 32.0-37.5 PLT 472 H 150-400 MPV 10.2 fL 9.1-13.0 RDW 13.7 11.5-14.5 Jul 08, 2024 09:54 AM [facility] PHOSPHORUS Specimen Type: PLASMA Comment: Specimen received in Lab at: 0952 Ordering Provider: BALAJADIA,MAR IA S Report Released Date/Time: Jul 07, 2024 04:49 PM Reporting Lab: [facility] [address] Performing Lab: [facility] [address] PHOSPHORUS 2.6 mg/dL 2.3-4.3 Jul 08, 2024 09:54 AM [facility] BASIC METABOLIC PANEL+MG Specimen Type: PLASMA Comment: Specimen received in Lab at: 0952 Ordering Provider: JUANCARLOS ECHOLS S Report Released Date/Time: Jul 07, 2024 04:49 PM Reporting Lab: [facility] [address] Performing Lab: [facility] [address] CREATININE 0.9 mg/dL 0.7-1.2 UREA NITROGEN 26 mg/dL 8-26 GLUCOSE 128 mg/dL H 70-100 SODIUM 134 mmol/L L 136-145 POTASSIUM 3.4 mmol/L L 3.5-5.1 CHLORIDE 100 mmol/L 98-107 CO2 24 mmol/L 22-29 CALCIUM 9.8 mg/dL 8.4-10.2 MAGNESIUM 1.8 mg/dL 1.6-2.6 ANION GAP 10 mmol/L 5-15 .CREAT EGFR(CKD-EPI) >90 >60 Jul 07, 2024 02:00 PM [facility] C DIFF PANEL Specimen Type: FECES No comment entered. Ordering Provider: JEVON ZAZUETA Report Released Date/Time: Jul 07, 2024 12:26 PM Reporting Lab: [facility] [address] Performing Lab: [facility] [address] C DIFF TOX B GENE PCR NEGATIVE Negative Jul 07, 2024 07:41 AM [facility] PHOSPHORUS Specimen Type: PLASMA No comment entered. Ordering Provider: JEVON ZAZUETA Report Released Date/Time: Jul 06, 2024 03:44 PM Reporting Lab: [facility] [address] Performing Lab: [facility] [address] PHOSPHORUS 3.1 mg/dL 2.3-4.3 Jul 07, 2024 07:41 AM [facility] BASIC METABOLIC PANEL+MG Specimen Type: PLASMA No comment entered. Ordering Provider: JEVON ZAZUETA Report Released Date/Time: Jul 06, 2024 03:44 PM Reporting Lab: [facility] [address] Performing Lab: [facility] [address] CREATININE 0.9 mg/dL 0.7-1.2 UREA NITROGEN 20 mg/dL 8-26 GLUCOSE 157 mg/dL H 70-100 SODIUM 136 mmol/L 136-145 POTASSIUM 3.7 mmol/L 3.5-5.1 CHLORIDE 102 mmol/L 98-107 CO2 21 mmol/L L 22-29 CALCIUM 9.8 mg/dL 8.4-10.2 MAGNESIUM 1.9 mg/dL 1.6-2.6 ANION GAP 13 mmol/L 5-15 .CREAT EGFR(CKD-EPI) >90 >60 Jul 07, 2024 07:40 AM [facility] CBC Specimen Type: BLOOD No comment entered. Ordering Provider: JEVON ZAZUETA Report Released Date/Time: Jul 06, 2024 03:44 PM Reporting Lab: [facility] [address] Performing Lab: [facility] [address] WBC 21.2 H 4.0-11.0 RBC 5.09 4.60-6.20 HGB 15.9 g/dL 13.5-17.9 HCT 48.3 41.0-54.0 MCV 94.9 fL 80.0-100.0 MCH 31.2 pg 27.0-33.0 MCHC 32.9 g/dL 32.0-37.5 PLT 500 H 150-400 MPV 10.3 fL 9.1-13.0 RDW 13.6 11.5-14.5 Jul 06, 2024 07:21 AM [facility] CBC Specimen Type: BLOOD No comment entered. Ordering Provider: JEVON ZAZUETA Report Released Date/Time: Jul 05, 2024 01:22 PM Reporting Lab: [facility] [address] Performing Lab: [facility] [address] WBC 18.0 H 4.0-11.0 RBC 4.83 4.60-6.20 HGB 14.6 g/dL 13.5-17.9 HCT 45.5 41.0-54.0 MCV 94.2 fL 80.0-100.0 MCH 30.2 pg 27.0-33.0 MCHC 32.1 g/dL 32.0-37.5 PLT 368 150-400 MPV 10.4 fL 9.1-13.0 RDW 13.6 11.5-14.5 Jul 06, 2024 07:21 AM [facility] PHOSPHORUS Specimen Type: PLASMA No comment entered. Ordering Provider: JEVON ZAZUETA Report Released Date/Time: Jul 05, 2024 01:22 PM Reporting Lab: [facility] [address] Performing Lab: [facility] [address] PHOSPHORUS 3.6 mg/dL 2.3-4.3 Jul 06, 2024 07:21 AM [facility] BASIC METABOLIC PANEL+MG Specimen Type: PLASMA No comment entered. Ordering Provider: JEVON ZAZUETA Report Released Date/Time: Jul 05, 2024 01:22 PM Reporting Lab: [facility] [address] Performing Lab: [facility] [address] CREATININE 0.7 mg/dL 0.7-1.2 UREA NITROGEN 12 mg/dL 8-26 GLUCOSE 108 mg/dL H 70-100 SODIUM 138 mmol/L 136-145 POTASSIUM 3.4 mmol/L L 3.5-5.1 CHLORIDE 104 mmol/L 98-107 CO2 20 mmol/L L 22-29 CALCIUM 9.3 mg/dL 8.4-10.2 MAGNESIUM 1.9 mg/dL 1.6-2.6 ANION GAP 14 mmol/L 5-15 .CREAT EGFR(CKD-EPI) >90 >60 Jul 05, 2024 07:17 AM [facility] MAGNESIUM Specimen Type: PLASMA No comment entered. Ordering Provider: JUANCARLOS ECHOLS S Report Released Date/Time: Jul 04, 2024 09:39 AM Reporting Lab: [facility] [address] Performing Lab: [facility] [address] MAGNESIUM 2.0 mg/dL 1.6-2.6 Jul 05, 2024 07:17 AM [facility] PHOSPHORUS Specimen Type: PLASMA No comment entered. Ordering Provider: JUANCARLOS ECHOLS S Report Released Date/Time: Jul 04, 2024 09:39 AM Reporting Lab: [facility] [address] Performing Lab: [facility] [address] PHOSPHORUS 2.0 mg/dL L 2.3-4.3 Jul 05, 2024 07:17 AM [facility] BASIC METABOLIC PANEL+MG Specimen Type: PLASMA No comment entered. Ordering Provider: JUANCARLOS ECHOLS S Report Released Date/Time: Jul 04, 2024 09:39 AM Reporting Lab: [facility] [address] Performing Lab: [facility] [address] CREATININE 0.7 mg/dL 0.7-1.2 UREA NITROGEN 12 mg/dL 8-26 GLUCOSE 84 mg/dL 70-100 SODIUM 135 mmol/L L 136-145 POTASSIUM 3.8 mmol/L 3.5-5.1 CHLORIDE 104 mmol/L 98-107 CO2 24 mmol/L 22-29 CALCIUM 9.3 mg/dL 8.4-10.2 MAGNESIUM 2.0 mg/dL 1.6-2.6 ANION GAP 7 mmol/L 5-15 .CREAT EGFR(CKD-EPI) >90 >60 Jul 05, 2024 07:16 AM [facility] CBC Specimen Type: BLOOD No comment entered. Ordering Provider: JUANCARLOS ECHOLS S Report Released Date/Time: Jul 04, 2024 09:39 AM Reporting Lab: [facility] [address] Performing Lab: [facility] [address] WBC 18.3 H 4.0-11.0 RBC 4.49 L 4.60-6.20 HGB 14.1 g/dL 13.5-17.9 HCT 43.4 41.0-54.0 MCV 96.7 fL 80.0-100.0 MCH 31.4 pg 27.0-33.0 MCHC 32.5 g/dL 32.0-37.5 PLT 317 150-400 MPV 10.0 fL 9.1-13.0 RDW 13.9 11.5-14.5 Jul 04, 2024 07:17 AM [facility] PHOSPHORUS Specimen Type: PLASMA No comment entered. Ordering Provider: GABINO CAMERON Report Released Date/Time: Jul 03, 2024 06:31 PM Reporting Lab: [facility] [address] Performing Lab: [facility] [address] PHOSPHORUS 2.8 mg/dL 2.3-4.3 Jul 04, 2024 07:17 AM [facility] BASIC METABOLIC PANEL+MG Specimen Type: PLASMA No comment entered. Ordering Provider: GABINO CAMERON Report Released Date/Time: Jul 03, 2024 06:31 PM Reporting Lab: [facility] [address] Performing Lab: [facility] [address] CREATININE 0.7 mg/dL 0.7-1.2 UREA NITROGEN 16 mg/dL 8-26 GLUCOSE 129 mg/dL H 70-100 SODIUM 137 mmol/L 136-145 POTASSIUM 3.7 mmol/L 3.5-5.1 CHLORIDE 107 mmol/L 98-107 CO2 22 mmol/L 22-29 CALCIUM 9.0 mg/dL 8.4-10.2 MAGNESIUM 1.9 mg/dL 1.6-2.6 ANION GAP 8 mmol/L 5-15 .CREAT EGFR(CKD-EPI) >90 >60 Jul 04, 2024 07:16 AM [facility] CBC Specimen Type: BLOOD No comment entered. Ordering Provider: GABINO CAMERON Report Released Date/Time: Jul 03, 2024 06:31 PM Reporting Lab: [facility] [address] Performing Lab: [facility] [address] WBC 20.6 H 4.0-11.0 RBC 4.63 4.60-6.20 HGB 14.2 g/dL 13.5-17.9 HCT 43.4 41.0-54.0 MCV 93.7 fL 80.0-100.0 MCH 30.7 pg 27.0-33.0 MCHC 32.7 g/dL 32.0-37.5 PLT 329 150-400 MPV 10.4 fL 9.1-13.0 RDW 13.8 11.5-14.5 Jul 04, 2024 07:16 AM [facility] CBC & DIFF Specimen Type: BLOOD Comment: Manual Differential Performed Ordering Provider: GABINO CAMERON Report Released Date/Time: Jul 03, 2024 06:31 PM Reporting Lab: [facility] [address] Performing Lab: [facility] [address] WBC 20.6 H 4.0-11.0 RBC 4.63 4.60-6.20 [...] MORPHOLOGY PRESENT Jul 04, 2024 07:15 AM [facility] BNP Specimen Type: PLASMA No comment entered. Ordering Provider: GABINO CAMERON Report Released Date/Time: Jul 03, 2024 06:31 PM Reporting Lab: [facility] [address] Performing Lab: [facility] [address] BNP 292 pg/mL H <99 Jul 03, 2024 10:32 PM [facility] FINGERSTICK GLUCOSE Specimen Type: BLOOD Comment: Save Result Nurse Notified Ordering Provider: KATELYNN PERSON Report Released Date/Time: Jul 03, 2024 10:50 PM Reporting Lab: [facility] [address] Performing Lab: [facility] [address] FINGERSTICK GLUCOSE 126 mg/dL H 70-100 Jul 03, 2024 05:33 PM [facility] FINGERSTICK GLUCOSE Specimen Type: BLOOD Comment: Save Result Nurse Notified Ordering Provider: KATELYNN PERSON Report Released Date/Time: Jul 03, 2024 05:46 PM Reporting Lab: [facility] [address] Performing Lab: [facility] [address] FINGERSTICK GLUCOSE 141 mg/dL H 70-100 Jul 03, 2024 02:31 PM [facility] POC ABG/ELECTROLYTES Specimen Type: ARTERIAL BLOOD Comment: FIO2 = 97% Patient Temp: 36.0 C Sample Type = ARTERIAL Ordering Provider: MAZIN ARREDONDO Report Released Date/Time: Jul 03, 2024 01:48 PM Reporting Lab: [facility] [address] Performing Lab: [facility] [address] POC PH 7.387 7.35-7.45 POC PCO2 34.4 [...] H 80.0-105.0 Jul 03, 2024 01:05 PM [facility] POC ABG/ELECTROLYTES Specimen Type: ARTERIAL BLOOD Comment: FIO2 = 53% Patient Temp: 36.2 C Sample Type = ARTERIAL Ordering Provider: MAZIN ARREDONDO Report Released Date/Time: Jul 03, 2024 01:48 PM Reporting Lab: [facility] [address] Performing Lab: [facility] [address] POC PH 7.280 L 7.35-7.45 POC PCO2 [...] mm[Hg] 80.0-105.0 Jul 03, 2024 06:15 AM [facility] URINALYSIS Specimen Type: URINE No comment entered. Ordering Provider: MARYBETH POWELL Report Released Date/Time: Jun 12, 2024 04:01 PM Reporting Lab: [facility] [address] Performing Lab: [facility] [address] URINE COLOR YELLOW SPECIFIC GRAVITY 1.031 1.003-1.03 [...] 250 NEGATIVE Jul 03, 2024 06:13 AM [facility] CBC Specimen Type: BLOOD No comment entered. Ordering Provider: MARYBETH POWELL Report Released Date/Time: Jun 12, 2024 03:59 PM Reporting Lab: [facility] [address] Performing Lab: [facility] [address] WBC 15.8 H 4.0-11.0 RBC 5.11 4.60-6.20 HGB 16.1 g/dL 13.5-17.9 HCT 49.1 41.0-54.0 MCV 96.1 fL 80.0-100.0 MCH 31.5 pg 27.0-33.0 MCHC 32.8 g/dL 32.0-37.5 PLT 357 150-400 MPV 9.8 fL 9.1-13.0 RDW 13.7 11.5-14.5 Jun 24, 2024 09:50 AM [facility] BASIC METABOLIC PANEL+MG Specimen Type: PLASMA Comment: Specimen received in Lab at: 0948 Ordering Provider: JEVON ZAZUETA Report Released Date/Time: Jun 23, 2024 06:07 PM Reporting Lab: [facility] [address] Performing Lab: [facility] [address] CREATININE 0.8 mg/dL 0.7-1.2 UREA NITROGEN 13 mg/dL 8-26 GLUCOSE 135 mg/dL H 70-100 SODIUM 135 mmol/L L 136-145 POTASSIUM 3.6 mmol/L 3.5-5.1 CHLORIDE 103 mmol/L 98-107 CO2 24 mmol/L 22-29 CALCIUM 9.2 mg/dL 8.4-10.2 MAGNESIUM 1.9 mg/dL 1.6-2.6 ANION GAP 8 mmol/L 5-15 .CREAT EGFR(CKD-EPI) >90 >60 Jun 24, 2024 09:50 AM [facility] CBC Specimen Type: BLOOD Comment: Specimen received in Lab at: 0948 Ordering Provider: JEVON ZAZUETA Report Released Date/Time: Jun 23, 2024 06:07 PM Reporting Lab: [facility] [address] Performing Lab: [facility] [address] WBC 15.5 H 4.0-11.0 RBC 4.93 4.60-6.20 HGB 15.2 g/dL 13.5-17.9 HCT 46.5 41.0-54.0 MCV 94.3 fL 80.0-100.0 MCH 30.8 pg 27.0-33.0 MCHC 32.7 g/dL 32.0-37.5 PLT 223 150-400 MPV 11.4 fL 9.1-13.0 RDW 13.9 11.5-14.5 Jun 23, 2024 07:52 AM [facility] COMPREHENSIVE METABOLIC PANEL+MG Specimen Type: PLASMA No comment entered. Ordering Provider: JEVON ZAZUETA Report Released Date/Time: Jun 22, 2024 05:51 PM Reporting Lab: [facility] [address] Performing Lab: [facility] [address] CREATININE 0.7 mg/dL 0.7-1.2 UREA NITROGEN 16 [...] >90 >60 Jun 23, 2024 07:52 AM [facility] CBC & DIFF Specimen Type: BLOOD Comment: Automated Differential Performed Ordering Provider: JEVON ZAZUETA Report Released Date/Time: Jun 22, 2024 05:51 PM Reporting Lab: [facility] [address] Performing Lab: [facility] [address] WBC 14.9 H 4.0-11.0 RBC 5.09 4.60-6.20 [...] 0.1 0.0-0.1 Jun 22, 2024 06:10 PM [facility] CBC Specimen Type: BLOOD No comment entered. Ordering Provider: JEVON ZAZUETA Report Released Date/Time: Jun 22, 2024 05:51 PM Reporting Lab: [facility] [address] Performing Lab: [facility] [address] WBC 16.9 H 4.0-11.0 RBC 5.28 4.60-6.20 HGB 16.9 g/dL 13.5-17.9 HCT 50.4 41.0-54.0 MCV 95.5 fL 80.0-100.0 MCH 32.0 pg 27.0-33.0 MCHC 33.5 g/dL 32.0-37.5 PLT 223 150-400 MPV 10.9 fL 9.1-13.0 RDW 14.0 11.5-14.5 Jun 22, 2024 06:10 PM [facility] COMPREHENSIVE METABOLIC PANEL+MG Specimen Type: PLASMA No comment entered. Ordering Provider: JEVON ZAZUETA Report Released Date/Time: Jun 22, 2024 05:51 PM Reporting Lab: [facility] [address] Performing Lab: [facility] [address] CREATININE 0.7 mg/dL 0.7-1.2 UREA NITROGEN 17 [...] >90 >60 Jun 21, 2024 06:48 PM [facility] URINALYSIS Specimen Type: URINE No comment entered. Ordering Provider: DELIA MARTINEZ Report Released Date/Time: Jun 21, 2024 05:45 PM Reporting Lab: [facility] [address] Performing Lab: [facility] [address] URINE COLOR YELLOW SPECIFIC GRAVITY 1.041 H [...] 500 NEGATIVE Jun 21, 2024 05:34 PM [facility] POC CREATININE Specimen Type: BLOOD No comment entered. Ordering Provider: DELIA MARTINEZ Report Released Date/Time: Jun 21, 2024 06:07 PM Reporting Lab: [facility] [address] Performing Lab: [facility] [address] POC CREATININE 1.1 mg/dL 0.6-1.3 Jun 21, 2024 05:30 PM [facility] POC ABG/LACTATE Specimen Type: VENOUS BLOOD No comment entered. Ordering Provider: DELIA MARTINEZ Report Released Date/Time: Jun 21, 2024 06:07 PM Reporting Lab: [facility] [address] Performing Lab: [facility] [address] POC PH 7.470 H 7.31-7.41 POC PCO2 31.2 mm[Hg] L 41.00-51 .0 0 POC PO2 46 mm[Hg] H 35.0-40.0 POC TCO2 24 mmol/L 24.0-29.0 POC HCO3 22.7 mmol/L L 23.0-28.0 POC BE ECT -1 mmol/L POC SO2 85 H 70-75 POC LACTATE 1.85 mmol/L 0.90-1.70 Jun 21, 2024 05:24 PM [facility] PROTHROMBIN TIME/INR Specimen Type: PLASMA No comment entered. Ordering Provider: DELIA MARTINEZ Report Released Date/Time: Jun 21, 2024 05:30 PM Reporting Lab: [facility] [address] Performing Lab: [facility] [address] .INR 1.2 H 0.8-1.1 .PT 13.9 s H 9.4-12.5 Jun 21, 2024 05:24 PM [facility] LIPASE Specimen Type: PLASMA No comment entered. Ordering Provider: DELIA MARTINEZ Report Released Date/Time: Jun 21, 2024 05:30 PM Reporting Lab: [facility] [address] Performing Lab: [facility] [address] LIPASE 32 U/L <60 Jun 21, 2024 05:24 PM [facility] EXTRA GOLD GEL TUBE Specimen Type: SERUM No comment entered. Ordering Provider: DELIA MARTINEZ Report Released Date/Time: Jun 21, 2024 05:41 PM Reporting Lab: [facility] [address] Performing Lab: [facility] [address] EXTRA GOLD GEL TUBE RECEIVED Jun 21, 2024 05:24 PM [facility] COMPREHENSIVE METABOLIC PANEL+MG Specimen Type: PLASMA No comment entered. Ordering Provider: DELIA MARTINEZ Report Released Date/Time: Jun 21, 2024 05:30 PM Reporting Lab: [facility] [address] Performing Lab: [facility] [address] CREATININE 0.9 mg/dL 0.7-1.2 UREA NITROGEN 29 [...] mg/dL <0.5 Jun 21, 2024 05:24 PM [facility] CBC & DIFF Specimen Type: BLOOD Comment: Manual Differential Performed Ordering Provider: DELIA MARTINEZ Report Released Date/Time: Jun 21, 2024 05:30 PM Reporting Lab: [facility] [address] Performing Lab: [facility] [address] WBC 21.3 H 4.0-11.0 RBC 5.48 4.60-6.20 [...] MORPHOLOGY PRESENT Jun 08, 2024 10:59 AM [facility] PROTHROMBIN TIME/INR Specimen Type: PLASMA No comment entered. Ordering Provider: MARYBETH POWELL Report Released Date/Time: May 28, 2024 09:02 AM Reporting Lab: [facility] [address] Performing Lab: [facility] [address] .INR 1.0 0.8-1.1 .PT 11.8 s 9.4-12.5 Jun 08, 2024 10:59 AM [facility] HEMOGLOBIN A1C Specimen Type: BLOOD [...] May 28, 2024 09:02 AM Reporting Lab: [facility] [address] Performing Lab: [facility] [address] HEMOGLOBIN A1C 4.9 4.0-6.0 Jun 08, 2024 10:59 AM [facility] CBC Specimen Type: BLOOD No comment entered. Ordering Provider: MARYBETH POWELL Report Released Date/Time: May 28, 2024 09:02 AM Reporting Lab: [facility] [address] Performing Lab: [facility] [address] WBC 16.1 H 4.0-11.0 RBC 5.02 4.60-6.20 HGB 16.0 g/dL 13.5-17.9 HCT 47.1 41.0-54.0 MCV 93.8 fL 80.0-100.0 MCH 31.9 pg 27.0-33.0 MCHC 34.0 g/dL 32.0-37.5 PLT 228 150-400 MPV 10.3 fL 9.1-13.0 RDW 14.6 H 11.5-14.5 Jun 08, 2024 10:59 AM [facility] BASIC METABOLIC PANEL+MG Specimen Type: PLASMA No comment entered. Ordering Provider: MARYBETH POWELL Report Released Date/Time: May 28, 2024 09:02 AM Reporting Lab: [facility] [id number] Performing Lab: [facility] [id number] CREATININE 0.9 mg/dL 0.7-1.2 UREA NITROGEN 15 [...] PM 97.2 60 130/68 18 94 0 [facility] Jul 07, 2024 04:59 PM 98 86 116/64 16 96 4 [facility] Jul 07, 2024 12:24 AM 97.4 101 133/81 18 97 6 [facility] Social History: Smoking Status (Most current) [...] Manuel ity May 15, 2024 08:30 AM [place]AC[place] FORMER USER [facility] Tobacco Use History This section includes a history of the smoking, or tobacco-related health factors, that were collected on or before the date of the Encounter. The data comes from the [place] facility where the Encounter took place. Date/Time Smoking Status/Tobacco Use Comment F acility May 15, 2024 08:30 AM [place]-TOBACCO QUIT 15 YRS OR MORE [facility] May 06, 2023 11:30 AM VA-TOBACCO FORMER USER [facility] May 06, 2023 11:30 AM VA-TOBACCO QUIT 15 YRS OR MORE [facility] Jun 04, 2022 09:00 AM VA-TOBACCO FORMER USER [facility] Jun 04, 2022 09:00 AM VA-TOBACCO QUIT 15 YRS OR MORE [facility] Jul 10, 2021 08:00 AM VA-TOBACCO FORMER USER [facility] Jul 10, 2021 08:00 AM VA-TOBACCO QUIT 5 TO < 15 YRS [facility] May 23, 2020 08:30 AM VA-TOBACCO FORMER USER [facility] May 23, 2020 08:30 AM VA-TOBACCO QUIT 5 TO < 15 YRS [facility] Mar 20, 2019 04:03 PM VA-TOBACCO FORMER USER [facility] Mar 20, 2019 04:03 PM VA-TOBACCO QUIT 5 TO < 15 YRS [facility] Mar 21, 2018 08:13 AM FORMER TOBACCO USER 7Y OR GREATE R [facility] Feb 24, 2017 09:24 AM FORMER TOBACCO USER 7Y OR GREATE R [facility] January 07, 2016 08:01 AM FORMER TOBACCO USE >1Y <7Y [facility] Feb 03, 2015 07:58 AM FORMER TOBACCO USE <1Y [facility] Feb 26, 2014 08:41 AM CURRENT TOBACCO USER [facility] May 13, 2011 01:45 PM CURRENT TOBACCO USER [facility] Advance Directives: All historical [...] document. The data comes from all [facility]. Date Advance Directives Provider Source Mar 23, 2016 CLINICAL WARNING [facility] Radiology Reports: +/- [...] VIEWS LILIAM Mustafa ND LAT: MEGFLACA YAMIL [id number] -[id number] M Exm Date: JUL 08, 2024@10:09 Req Phys: KATELYNN PERSON Loc: 2KG/07-08-2024@11:49 Img Loc: MAIN X-RAY Service: [place] [address] (Case 24 COMPLETE) CHEST 2 VIEWS PA AND LAT (RAD Detailed) CPT:48601 Reason for Study: Uptrending WBC, POD 5 Clinical History: [place] IS NOT under investigation for COVID-19 or is COVID-19 negative POD 5, work up for uptrending wbc Responsible provider name and phone number to notify for critical findings if other than user placing the order and pager listed below: User placing orders pager: Katelynn Person LAST CREATININE 0.9 (07/07/24) Report Status: Verified Date Reported: JUL 08, 2024 Date Verified: JUL 08, 2024 Bolt Cutter E-Sig: Report: CHEST 2 VIEWS PA AND [...] cardiopulmonary disease. READING PHYSICIAN: Sarbjit Vaughn M.D. -[phone] 07/08/2024 12:46 EST [facility] National Teleradiology Program [phone] (For Medical Practitioner Use Only) Attention Patients / Veterans: If you have questions or concerns about these test results, please contact your ordering provider or primary care team. Primary Interpreting Staff: RADIOLOGY,OUTSIDE SERVICE, Staff Physician / RADIOLOGY,OUTSIDE SERVICE [facility] Jul 08, 2024 10:[address] (AP) ABDOMEN/PE LVIS W CONTRAST: FLACA WEAVER [id number] -1950 M Exm Date: JUL 08, 2024@10:00 Req Phys: KATELYNN PERSON Pat Loc: 2KG/07-08-2024@12:07 Img Loc: CT IMAGING Service: [place] [address] (Case 22 COMPLETE) CT (AP) ABDOMEN/PELVIS W CONTRAST(CT Detailed) CPT:38315 Contrast Media : Non-ionic Iodinated Reason for [...] PLASMA .CREAT EGFR(CKD-E >90 Ref: >=60 Allergies: ([place] only) TERAZOSIN (Mar 13, 2015) Report Status: Verified Date Reported: JUL 08, 2024 Date Verified: JUL 08, 2024 Bolt Cutter E-Sig: Report: CT (AP) ABDOMEN/PELVIS W CONTRAST [...] as noted above READING PHYSICIAN: Celestino Blanc -[phone] 07/08/2024 13:04 [facility]Arad[facility] [phone] (For Medical Practitioner Use Only) Attention Patients / Veterans: If you have questions or concerns about these test results, please contact your ordering provider or primary care team. Primary Interpreting Staff: RADIOLOGY,OUTSIDE SERVICE, Staff Physician / RADIOLOGY,OUTSIDE SERVICE [facility] Jun 22, 2024 11:49 AM ABSCESS DRAIN PLAC EMENT PERITONEAL (P): FLACA WEAVER [id number] -1950 M Exm Date: JUN 22, 2024@11:49 Req Phys: ANGELA HOLDEN Loc: [facility]06-22-2024@17:14 Img Loc: INTERVENTIONAL RADIOLOGY Service: [place] [address] (Case [id number] COMPLETE) IR PERITONEAL/RETROPERITONEAL PER(ANI Detailed) CPT:01863 Reason for Study: diverticulitis with abscess (Case 3570 COMPLETE) IR MOD SEDATION 10-22 MIN (ANI Detailed) CPT:85299 Clinical History: [place] IS NOT under investigation for COVID-19 or is COVID-19 negative 73 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 please place abscess drain. Contact number for responsible provider who can be reached for any questions or notifications of critical findings: [phone] n/a LAST CREATININE 0.9 (06/21/24) Report Status: Verified Date Reported: JUN 22, 2024 Date Verified: JUN 22, 2024 Bolt Cutter E-Sig:/ES/LISA PENDLETON MD Report: PROCEDURES: Placement of [...] obtained. A pre-procedural Time-Out was performed per [facility] policy. The patient was placed in the supine position on the CT table. Preprocedural scan performed. The suprapubic region/lower abdominal wall was sterilely prepped and draped in the usual fashion.1% lidocaine without epinephrine was used for local anesthesia. Using real-time CT fluoroscopy, a 5 English FitLinxxesis catheter was advanced into the collection in the left pelvis. A wire was coiled in the collection. The tract into the collection was dilated to accommodate the 12 English locking pigtail drainage catheter. There was return [...] Primary Interpreting Staff: LISA PENDLETON MD, RADIOLOGIST (Bolt Cutter) /JRT LISA PENDLETON [facility] Jun 22, 2024 11:[address] NEEDLE PLACEMEN T (P): MEGFLACA YAMIL [id number] -1950 M Exm Date: JUN 22, 2024@11:48 Req Phys: ANGELA HOLDEN Loc: 2KC/06-22-2024@17:14 Img Loc: CT IMAGING Service: [place] [address] (Case [id number] COMPLETE) CT SCAN FOR NEEDLE PLACEMENT (CT Detailed) CPT:32076 Reason for Study: l pelvic abscess drain Clinical History: Report Status: Verified Date Reported: JUN 22, 2024 Date Verified: JUN 22, 2024 Bolt Cutter E-Sig:/ES/LISA PENDLETON MD Report: PROCEDURES: Placement of [...] obtained. A pre-procedural Time-Out was performed per [facility] policy. The patient was placed in the supine position on the CT table. Preprocedural scan performed. The suprapubic region/lower abdominal wall was sterilely prepped and draped in the usual fashion.1% lidocaine without epinephrine was used for local anesthesia. Using real-time CT fluoroscopy, a 5 English FitLinxxesis catheter was advanced into the collection in the left pelvis. A wire was coiled in the collection. The tract into the collection was dilated to accommodate the 12 English locking pigtail drainage catheter. There was return [...] Primary Interpreting Staff: LISA PENDLETON MD, RADIOLOGIST (Bolt Cutter) /JRT LISA PENDLETON [facility] Jun 21, 2024 06:[address] (AP) ABDOMEN/PE LVIS (P): FLACA WEAVRE [id number] -1950 M Exm Date: JUN 21, 2024@18:09 Req Phys: DELIA MARTINEZ Loc: [facility] EMERGENCY DEPT WALK-IN (Re Img Loc: CT IMAGING Service: [place] [address] (Case [id number] COMPLETE) CT (AP) ABDOMEN/PELVIS W CONTRAST(CT Detailed) CPT:79161 Contrast Media : Non-ionic Iodinated Reason for [...] PLASMA .CREAT EGFR(CKD-E >90 Ref: >=60 Allergies: ([place] only) TERAZOSIN (Mar 13, 2015) Defer to [...] 21, 2024 Date Verified: JUN 21, 2024 Bolt Cutter E-Sig:/ALEXI/CARLOS A CUNNINGHAM DO Report: EXAMINATION: CT [...] Interpreting Staff: CARLOS A CUNNINGHAM DO, RADIOLOGIST (Bolt Cutter) /CARLOS A ROWELL [facility] Pathology Reports: +/- 30 [...] COSIGNER: URGENCY: STATUS: COMPLETED $APHDR Reporting Lab: [facility] [CLIA# [id number]] [place] [address] - - - - - - - [...] - PATHOLOGY REPORT Accession No. [id number] - - - - - - - [...] - PATHOLOGY REPORT Accession No. [id number] - - - - - - - [...] Second circumferential surgical margin, en face; E-F: District Sales Manager diverticula; G: District Sales Manager section of mesentery; H: Random title insurance sales representative section of additional adipose tissue [...] Performing Laboratory: Surgical Pathology Report Performed By: [facility] [CLIA# [id number]] [place] [address] $FTR - - - - - - [...] - - FLACA WEAVER STANDARD FORM 515 ID:[id number] SEX:M :1950 AGE: 73 LOC:17210 ADM:Jun DX:DIVERTICULITIS PCP: Jatinder Cabrera /alexi/ EDUARDO PALOMARES MD STAFF PATHOLOGIST Signed: 07/06/2024 10:40 EDUARDO PALOMARES [facility] Jun 22, 2024 01:15 PM LR MICROBIOLOGY RE PORT: Reporting Lab: [facility] [CLIA# [id number]] [place] [address] Accession [UID]: [id number] [[id number]] Received: Jun 22, 2024@13:38 Collection sample: FLUID Collection date: Jun 22, 2024 13:15 Provider: ANGELA HOLDEN Comment on specimen: LLQ ABSCESS, RECEIVED IN ANAEROBIC TRANSPORT VIAL Test(s) ordered: GRAM STAIN.................... completed: Jun 22, 2024 15:03 CULTURE & SUSCEPTIBILITY...... completed: Jun 25, 2024 * BACTERIOLOGY FINAL REPORT => Jun 25, 2024 10:56 [facility] CODE: [id number] GRAM STAIN: DIRECT SMEAR of specimen before [...] -=--=--=--=--=--=--=-- Performing Laboratory: Bacteriology Report Performed By: [facility] [CLIA# [id number]] [place] [address] [facility] Jun 22, 2024 01:15 PM LR MICROBIOLOGY RE PORT: Reporting Lab: [facility] [CLIA# [id number]] [place] [address] Accession [UID]: [id number] [[id number]] Received: Jun 22, 2024@13:38 Collection sample: FLUID Collection date: Jun 22, 2024 13:15 Provider: ANGELA HOLDEN Comment on specimen: LLQ ABSCESS, RECEIVED IN ANAEROBIC TRANSPORT VIAL Test(s) ordered: ANAEROBIC CULTURE............. completed: Jun 28, 2024 * BACTERIOLOGY FINAL REPORT => Jun 28, 2024 10:08 TECH CODE: [id number] CULTURE RESULTS: HEAVY GROWTH MIXED ANAEROBES Comment: including the followin+ Bacteroides fragilis 4+ Bacteroides vulgatus 4+ Clostridium innocuum Beta-lactamase negative 4+ Bacteroides caccae 4+ Parvimonas micra 4+ Bacteroides uniformis 4+ Gemella morbillorum 4+ anaerobic small, Gram Positive Rods 4+ Bacteroides thetaiotaomicron Standard workup is now complete. Bacteriology Remark(s): THIS REPORT IS FINAL =--=--=--=--=--=--=--=--=--= --=--=--=--=--=--=--=--=--=- -=--=--=--=--=--=--=-- Performing Laboratory: Bacteriology Report Performed By: [facility] [CLIA# [id number]] [place] [address] [facility] Jun 21, 2024 06:12 PM LR MICROBIOLOGY RE PORT: Reporting Lab: [facility] [CLIA# [id number]] [place] [address] Accession [UID]: [id number] [[id number]] Received: Jun 21, 2024@18:12 Collection sample: BLOOD [...] -=--=--=--=--=--=--=-- Performing Laboratory: Bacteriology Report Performed By: [facility] [CLIA# [id number]] [place] [address] [facility] Jun 21, 2024 06:11 PM LR MICROBIOLOGY RE PORT: Reporting Lab: [facility] [CLIA# [id number]] [place] [address] Accession [UID]: [id number] [[id number]] Received: Jun 21, 2024@18:11 Collection sample: BLOOD [...] -=--=--=--=--=--=--=-- Performing Laboratory: Bacteriology Report Performed By: [facility] [CLIA# [id number]] [place] [address] [facility] Jun 08, 2024 11:00 AM LR MICROBIOLOGY RE PORT: Reporting Lab: [facility] [CLIA# [id number]] [place] [address] Accession [UID]: [id number] [[id number]] Received: Jun 08, 2024@11:00 Collection sample: URINE Collection date: Jun 08, 2024 11:00 Provider: MARYBETH POWELL Comment on specimen: urine Test(s) ordered: CULTURE & SUSCEPTIBILITY...... completed: Jun 09, 2024 * BACTERIOLOGY FINAL REPORT => Jun 09, 2024 19:12 TECH CODE: [id number] CULTURE RESULTS: ESCHERICHIA COLI - Quantity: >100,000 [...] -=--=--=--=--=--=--=-- Performing Laboratory: Bacteriology Report Performed By: [facility] [CLIA# [id number]] [place] [address] [facility]
--- OUTSIDE RECORDS SUMMARY | 2024-07-16 07:19 | XMS_ITS ---
[place] DAILY HOSPITALIZATION DATA [facility] Encounter Summary Created on: July 16, 2024 MEG FLACADARCI LOBO : 1950 Sex: Male Author Name [facility] [place] [facility] [place] Address [address] [place] [address] Care Team Providers Care Upkeep Mechanic Name Role Phone JATINDER CABRERA Primary Care [...] PART A Sep 29, 2016 PART A [id number] JUDY WEAVER PATIENT Selected Encounter This section includes the information on record at [place] for the Encounter. Date/Time Encounter Type Encounter Description Reason Pro vider Source Jul 07, 2024 11:00 PM Inpatient Visit DAILY HOSPITALIZATION DATA [facility] E Encounter Template Text not used by [place] Plan of Treatment: Future Appointments (+ 6 months) and Future Tests (+/- 45 days) The Plan of Treatment section includes future care activities for the patient from all [place] treatmentfacilities. This section includes future appointments and [...] 2024 08:15 AM AMBULATORY - NONE [facility] Active, Pending, and Scheduled Orders This section includes a listing of several types of active, pending, and scheduled orders, including clinic medications orders, diagnostic test orders, procedure orders and consult orders; where the start date of the order is 45 days before the date of the Encounter or 45 days after the date of theEncounter. The data comes from all [place] treatment facilities. Test Date/Time Test Type Test Details Facility Name May 28, 2024 12:00 AM Laboratory - Blood Bank Order TYPE & SCREEN - LAB BLOOD SP [facility] Jun 08, 2024 09:57 AM Laboratory - Chemi stry Order URINALYSIS URINE WC ONCE [facility] Jun 12, 2024 12:00 AM Laboratory - Chemi stry Order BNP PLASMA SP ONCE [facility] Jun 21, 2024 05:45 PM Laboratory - Blood Bank Order TYPE & SCREEN - LAB BLOOD WC [facility] Jul 03, 2024 12:00 AM Laboratory - Blood Bank Order TYPE & SCREEN - LAB BLOOD [facility] Jul 16, 2024 12:00 AM Laboratory - Chemi stry Order CBC BLOOD SP ONCE [facility] Jul 17, 2024 12:00 AM Laboratory - Chemi stry Order BASIC METABOLIC PANEL+MG PLASMA SP ONCE [facility] Lab Results: +/- 30 [...] Range Comment Jul 10, 2024 07:16 AM [facility] PHOSPHORUS Specimen Type: PLASMA No comment entered. Ordering Provider: JUANCARLOS ECHOLS S Report Released Date/Time: Jul 09, 2024 12:23 PM Reporting Lab: [facility] [address] Performing Lab: [facility] [address] PHOSPHORUS 3.0 mg/dL 2.3-4.3 Jul 10, 2024 07:16 AM [facility] BASIC METABOLIC PANEL+MG Specimen Type: PLASMA No comment entered. Ordering Provider: JUANCARLOS ECHOLS S Report Released Date/Time: Jul 09, 2024 12:23 PM Reporting Lab: [facility] [address] Performing Lab: [facility] [address] CREATININE 0.7 mg/dL 0.7-1.2 UREA NITROGEN 27 mg/dL H 8-26 GLUCOSE 104 mg/dL H 70-100 SODIUM 133 mmol/L L 136-145 POTASSIUM 4.3 mmol/L 3.5-5.1 CHLORIDE 102 mmol/L 98-107 CO2 19 mmol/L L 22-29 CALCIUM 10.1 mg/dL 8.4-10.2 MAGNESIUM 1.9 mg/dL 1.6-2.6 ANION GAP 12 mmol/L 5-15 .CREAT EGFR(CKD-EPI) >90 >60 Jul 10, 2024 07:15 AM [facility] CBC Specimen Type: BLOOD No comment entered. Ordering Provider: JUANCARLOS ECHOLS Report Released Date/Time: Jul 09, 2024 12:23 PM Reporting Lab: [facility] [address] Performing Lab: [facility] [address] WBC 18.8 H 4.0-11.0 RBC 5.08 4.60-6.20 HGB 15.9 g/dL 13.5-17.9 HCT 46.8 41.0-54.0 MCV 92.1 fL 80.0-100.0 MCH 31.3 pg 27.0-33.0 MCHC 34.0 g/dL 32.0-37.5 PLT 479 H 150-400 MPV 10.2 fL 9.1-13.0 RDW 13.7 11.5-14.5 Jul 09, 2024 07:08 AM [facility] CBC Specimen Type: BLOOD No comment entered. Ordering Provider: QUYNH WEISS AV Report Released Date/Time: Jul 08, 2024 06:18 PM Reporting Lab: [facility] [address] Performing Lab: [facility] [address] WBC 15.3 H 4.0-11.0 RBC 4.91 4.60-6.20 HGB 15.1 g/dL 13.5-17.9 HCT 45.7 41.0-54.0 MCV 93.1 fL 80.0-100.0 MCH 30.8 pg 27.0-33.0 MCHC 33.0 g/dL 32.0-37.5 PLT 443 H 150-400 MPV 10.0 fL 9.1-13.0 RDW 13.5 11.5-14.5 Jul 08, 2024 10:50 AM [facility] URINALYSIS Specimen Type: URINE No comment entered. Ordering Provider: KATELYNN PERSON Report Released Date/Time: Jul 08, 2024 08:41 AM Reporting Lab: [facility] [address] Performing Lab: [facility] [address] URINE COLOR YELLOW SPECIFIC GRAVITY >1.050 H [...] NEGATIVE NEGATIVE Jul 08, 2024 09:54 AM [facility] CBC Specimen Type: BLOOD Comment: Specimen received in Lab at: [id number] Ordering Provider: JUANCARLOS ECHOLS Report Released Date/Time: Jul 07, 2024 04:49 PM Reporting Lab: [facility] [address] Performing Lab: [facility] [address] WBC 17.5 H 4.0-11.0 RBC 4.88 4.60-6.20 HGB 14.9 g/dL 13.5-17.9 HCT 45.7 41.0-54.0 MCV 93.6 fL 80.0-100.0 MCH 30.5 pg 27.0-33.0 MCHC 32.6 g/dL 32.0-37.5 PLT 472 H 150-400 MPV 10.2 fL 9.1-13.0 RDW 13.7 11.5-14.5 Jul 08, 2024 09:54 AM [facility] PHOSPHORUS Specimen Type: PLASMA Comment: Specimen received in Lab at: 0952 Ordering Provider: BALAJADIA,MAR IA S Report Released Date/Time: Jul 07, 2024 04:49 PM Reporting Lab: [facility] [address] Performing Lab: [facility] [address] PHOSPHORUS 2.6 mg/dL 2.3-4.3 Jul 08, 2024 09:54 AM [facility] BASIC METABOLIC PANEL+MG Specimen Type: PLASMA Comment: Specimen received in Lab at: 0952 Ordering Provider: JUANCARLOS ECHOLS S Report Released Date/Time: Jul 07, 2024 04:49 PM Reporting Lab: [facility] [address] Performing Lab: [facility] [address] CREATININE 0.9 mg/dL 0.7-1.2 UREA NITROGEN 26 mg/dL 8-26 GLUCOSE 128 mg/dL H 70-100 SODIUM 134 mmol/L L 136-145 POTASSIUM 3.4 mmol/L L 3.5-5.1 CHLORIDE 100 mmol/L 98-107 CO2 24 mmol/L 22-29 CALCIUM 9.8 mg/dL 8.4-10.2 MAGNESIUM 1.8 mg/dL 1.6-2.6 ANION GAP 10 mmol/L 5-15 .CREAT EGFR(CKD-EPI) >90 >60 Jul 07, 2024 02:00 PM [facility] C DIFF PANEL Specimen Type: FECES No comment entered. Ordering Provider: JEVON ZAZUETA Report Released Date/Time: Jul 07, 2024 12:26 PM Reporting Lab: [facility] [address] Performing Lab: [facility] [address] C DIFF TOX B GENE PCR NEGATIVE Negative Jul 07, 2024 07:41 AM [facility] PHOSPHORUS Specimen Type: PLASMA No comment entered. Ordering Provider: JEVON ZAZUETA Report Released Date/Time: Jul 06, 2024 03:44 PM Reporting Lab: [facility] [address] Performing Lab: [facility] [address] PHOSPHORUS 3.1 mg/dL 2.3-4.3 Jul 07, 2024 07:41 AM [facility] BASIC METABOLIC PANEL+MG Specimen Type: PLASMA No comment entered. Ordering Provider: JEVON ZAZUETA Report Released Date/Time: Jul 06, 2024 03:44 PM Reporting Lab: [facility] [address] Performing Lab: [facility] [address] CREATININE 0.9 mg/dL 0.7-1.2 UREA NITROGEN 20 mg/dL 8-26 GLUCOSE 157 mg/dL H 70-100 SODIUM 136 mmol/L 136-145 POTASSIUM 3.7 mmol/L 3.5-5.1 CHLORIDE 102 mmol/L 98-107 CO2 21 mmol/L L 22-29 CALCIUM 9.8 mg/dL 8.4-10.2 MAGNESIUM 1.9 mg/dL 1.6-2.6 ANION GAP 13 mmol/L 5-15 .CREAT EGFR(CKD-EPI) >90 >60 Jul 07, 2024 07:40 AM [facility] CBC Specimen Type: BLOOD No comment entered. Ordering Provider: JEVON ZAZUETA Report Released Date/Time: Jul 06, 2024 03:44 PM Reporting Lab: [facility] [address] Performing Lab: [facility] [address] WBC 21.2 H 4.0-11.0 RBC 5.09 4.60-6.20 HGB 15.9 g/dL 13.5-17.9 HCT 48.3 41.0-54.0 MCV 94.9 fL 80.0-100.0 MCH 31.2 pg 27.0-33.0 MCHC 32.9 g/dL 32.0-37.5 PLT 500 H 150-400 MPV 10.3 fL 9.1-13.0 RDW 13.6 11.5-14.5 Jul 06, 2024 07:21 AM [facility] CBC Specimen Type: BLOOD No comment entered. Ordering Provider: JEVON ZAZUETA Report Released Date/Time: Jul 05, 2024 01:22 PM Reporting Lab: [facility] [address] Performing Lab: [facility] [address] WBC 18.0 H 4.0-11.0 RBC 4.83 4.60-6.20 HGB 14.6 g/dL 13.5-17.9 HCT 45.5 41.0-54.0 MCV 94.2 fL 80.0-100.0 MCH 30.2 pg 27.0-33.0 MCHC 32.1 g/dL 32.0-37.5 PLT 368 150-400 MPV 10.4 fL 9.1-13.0 RDW 13.6 11.5-14.5 Jul 06, 2024 07:21 AM [facility] PHOSPHORUS Specimen Type: PLASMA No comment entered. Ordering Provider: JEVON ZAZUETA Report Released Date/Time: Jul 05, 2024 01:22 PM Reporting Lab: [facility] [address] Performing Lab: [facility] [address] PHOSPHORUS 3.6 mg/dL 2.3-4.3 Jul 06, 2024 07:21 AM [facility] BASIC METABOLIC PANEL+MG Specimen Type: PLASMA No comment entered. Ordering Provider: JEVON ZAZUETA Report Released Date/Time: Jul 05, 2024 01:22 PM Reporting Lab: [facility] [address] Performing Lab: [facility] [address] CREATININE 0.7 mg/dL 0.7-1.2 UREA NITROGEN 12 mg/dL 8-26 GLUCOSE 108 mg/dL H 70-100 SODIUM 138 mmol/L 136-145 POTASSIUM 3.4 mmol/L L 3.5-5.1 CHLORIDE 104 mmol/L 98-107 CO2 20 mmol/L L 22-29 CALCIUM 9.3 mg/dL 8.4-10.2 MAGNESIUM 1.9 mg/dL 1.6-2.6 ANION GAP 14 mmol/L 5-15 .CREAT EGFR(CKD-EPI) >90 >60 Jul 05, 2024 07:17 AM [facility] MAGNESIUM Specimen Type: PLASMA No comment entered. Ordering Provider: JUANCARLOS ECHOLS S Report Released Date/Time: Jul 04, 2024 09:39 AM Reporting Lab: [facility] [address] Performing Lab: [facility] [address] MAGNESIUM 2.0 mg/dL 1.6-2.6 Jul 05, 2024 07:17 AM [facility] PHOSPHORUS Specimen Type: PLASMA No comment entered. Ordering Provider: JUANCARLOS ECHOSL S Report Released Date/Time: Jul 04, 2024 09:39 AM Reporting Lab: [facility] [address] Performing Lab: [facility] [address] PHOSPHORUS 2.0 mg/dL L 2.3-4.3 Jul 05, 2024 07:17 AM [facility] BASIC METABOLIC PANEL+MG Specimen Type: PLASMA No comment entered. Ordering Provider: JUANCARLOS ECHOLS S Report Released Date/Time: Jul 04, 2024 09:39 AM Reporting Lab: [facility] [address] Performing Lab: [facility] [address] CREATININE 0.7 mg/dL 0.7-1.2 UREA NITROGEN 12 mg/dL 8-26 GLUCOSE 84 mg/dL 70-100 SODIUM 135 mmol/L L 136-145 POTASSIUM 3.8 mmol/L 3.5-5.1 CHLORIDE 104 mmol/L 98-107 CO2 24 mmol/L 22-29 CALCIUM 9.3 mg/dL 8.4-10.2 MAGNESIUM 2.0 mg/dL 1.6-2.6 ANION GAP 7 mmol/L 5-15 .CREAT EGFR(CKD-EPI) >90 >60 Jul 05, 2024 07:16 AM [facility] CBC Specimen Type: BLOOD No comment entered. Ordering Provider: JUANCARLOS ECHOLS S Report Released Date/Time: Jul 04, 2024 09:39 AM Reporting Lab: [facility] [address] Performing Lab: [facility] [address] WBC 18.3 H 4.0-11.0 RBC 4.49 L 4.60-6.20 HGB 14.1 g/dL 13.5-17.9 HCT 43.4 41.0-54.0 MCV 96.7 fL 80.0-100.0 MCH 31.4 pg 27.0-33.0 MCHC 32.5 g/dL 32.0-37.5 PLT 317 150-400 MPV 10.0 fL 9.1-13.0 RDW 13.9 11.5-14.5 Jul 04, 2024 07:17 AM [facility] PHOSPHORUS Specimen Type: PLASMA No comment entered. Ordering Provider: GABINO CAMERON Report Released Date/Time: Jul 03, 2024 06:31 PM Reporting Lab: [facility] [address] Performing Lab: [facility] [address] PHOSPHORUS 2.8 mg/dL 2.3-4.3 Jul 04, 2024 07:17 AM [facility] BASIC METABOLIC PANEL+MG Specimen Type: PLASMA No comment entered. Ordering Provider: GABINO CAMERON Report Released Date/Time: Jul 03, 2024 06:31 PM Reporting Lab: [facility] [address] Performing Lab: [facility] [address] CREATININE 0.7 mg/dL 0.7-1.2 UREA NITROGEN 16 mg/dL 8-26 GLUCOSE 129 mg/dL H 70-100 SODIUM 137 mmol/L 136-145 POTASSIUM 3.7 mmol/L 3.5-5.1 CHLORIDE 107 mmol/L 98-107 CO2 22 mmol/L 22-29 CALCIUM 9.0 mg/dL 8.4-10.2 MAGNESIUM 1.9 mg/dL 1.6-2.6 ANION GAP 8 mmol/L 5-15 .CREAT EGFR(CKD-EPI) >90 >60 Jul 04, 2024 07:16 AM [facility] CBC Specimen Type: BLOOD No comment entered. Ordering Provider: GABINO CAMERON Report Released Date/Time: Jul 03, 2024 06:31 PM Reporting Lab: [facility] [address] Performing Lab: [facility] [address] WBC 20.6 H 4.0-11.0 RBC 4.63 4.60-6.20 HGB 14.2 g/dL 13.5-17.9 HCT 43.4 41.0-54.0 MCV 93.7 fL 80.0-100.0 MCH 30.7 pg 27.0-33.0 MCHC 32.7 g/dL 32.0-37.5 PLT 329 150-400 MPV 10.4 fL 9.1-13.0 RDW 13.8 11.5-14.5 Jul 04, 2024 07:16 AM [facility] CBC & DIFF Specimen Type: BLOOD Comment: Manual Differential Performed Ordering Provider: GABINO CAMERON Report Released Date/Time: Jul 03, 2024 06:31 PM Reporting Lab: [facility] [address] Performing Lab: [facility] [address] WBC 20.6 H 4.0-11.0 RBC 4.63 4.60-6.20 [...] MORPHOLOGY PRESENT Jul 04, 2024 07:15 AM [facility] BNP Specimen Type: PLASMA No comment entered. Ordering Provider: GABINO CAMERON Report Released Date/Time: Jul 03, 2024 06:31 PM Reporting Lab: [facility] [address] Performing Lab: [facility] [address] BNP 292 pg/mL H <99 Jul 03, 2024 10:32 PM [facility] FINGERSTICK GLUCOSE Specimen Type: BLOOD Comment: Save Result Nurse Notified Ordering Provider: KATELYNN PERSON Report Released Date/Time: Jul 03, 2024 10:50 PM Reporting Lab: [facility] [address] Performing Lab: [facility] [address] FINGERSTICK GLUCOSE 126 mg/dL H 70-100 Jul 03, 2024 05:33 PM [facility] FINGERSTICK GLUCOSE Specimen Type: BLOOD Comment: Save Result Nurse Notified Ordering Provider: KATELYNN PERSON Report Released Date/Time: Jul 03, 2024 05:46 PM Reporting Lab: [facility] [address] Performing Lab: [facility] [address] FINGERSTICK GLUCOSE 141 mg/dL H 70-100 Jul 03, 2024 02:31 PM [facility] POC ABG/ELECTROLYTES Specimen Type: ARTERIAL BLOOD Comment: FIO2 = 97% Patient Temp: 36.0 C Sample Type = ARTERIAL Ordering Provider: MAZIN ARREDONDO Report Released Date/Time: Jul 03, 2024 01:48 PM Reporting Lab: [facility] [address] Performing Lab: [facility] [address] POC PH 7.387 7.35-7.45 POC PCO2 34.4 [...] H 80.0-105.0 Jul 03, 2024 01:05 PM [facility] POC ABG/ELECTROLYTES Specimen Type: ARTERIAL BLOOD Comment: FIO2 = 53% Patient Temp: 36.2 C Sample Type = ARTERIAL Ordering Provider: MAZIN ARREDONDO Report Released Date/Time: Jul 03, 2024 01:48 PM Reporting Lab: [facility] [address] Performing Lab: [facility] [address] POC PH 7.280 L 7.35-7.45 POC PCO2 [...] mm[Hg] 80.0-105.0 Jul 03, 2024 06:15 AM [facility] URINALYSIS Specimen Type: URINE No comment entered. Ordering Provider: MARYBETH POWELL Report Released Date/Time: Jun 12, 2024 04:01 PM Reporting Lab: [facility] [address] Performing Lab: [facility] [address] URINE COLOR YELLOW SPECIFIC GRAVITY 1.031 1.003-1.03 [...] 250 NEGATIVE Jul 03, 2024 06:13 AM [facility] CBC Specimen Type: BLOOD No comment entered. Ordering Provider: MARYBETH POWELL Report Released Date/Time: Jun 12, 2024 03:59 PM Reporting Lab: [facility] [address] Performing Lab: [facility] [address] WBC 15.8 H 4.0-11.0 RBC 5.11 4.60-6.20 HGB 16.1 g/dL 13.5-17.9 HCT 49.1 41.0-54.0 MCV 96.1 fL 80.0-100.0 MCH 31.5 pg 27.0-33.0 MCHC 32.8 g/dL 32.0-37.5 PLT 357 150-400 MPV 9.8 fL 9.1-13.0 RDW 13.7 11.5-14.5 Jun 24, 2024 09:50 AM [facility] BASIC METABOLIC PANEL+MG Specimen Type: PLASMA Comment: Specimen received in Lab at: [id number] Ordering Provider: JEVON ZAZUETA Report Released Date/Time: Jun 23, 2024 06:07 PM Reporting Lab: [facility] [address] Performing Lab: [facility] [address] CREATININE 0.8 mg/dL 0.7-1.2 UREA NITROGEN 13 mg/dL 8-26 GLUCOSE 135 mg/dL H 70-100 SODIUM 135 mmol/L L 136-145 POTASSIUM 3.6 mmol/L 3.5-5.1 CHLORIDE 103 mmol/L 98-107 CO2 24 mmol/L 22-29 CALCIUM 9.2 mg/dL 8.4-10.2 MAGNESIUM 1.9 mg/dL 1.6-2.6 ANION GAP 8 mmol/L 5-15 .CREAT EGFR(CKD-EPI) >90 >60 Jun 24, 2024 09:50 AM [facility] CBC Specimen Type: BLOOD Comment: Specimen received in Lab at: [id number] Ordering Provider: JEVON ZAZUETA Report Released Date/Time: Jun 23, 2024 06:07 PM Reporting Lab: [facility] [address] Performing Lab: [facility] [address] WBC 15.5 H 4.0-11.0 RBC 4.93 4.60-6.20 HGB 15.2 g/dL 13.5-17.9 HCT 46.5 41.0-54.0 MCV 94.3 fL 80.0-100.0 MCH 30.8 pg 27.0-33.0 MCHC 32.7 g/dL 32.0-37.5 PLT 223 150-400 MPV 11.4 fL 9.1-13.0 RDW 13.9 11.5-14.5 Jun 23, 2024 07:52 AM [facility] COMPREHENSIVE METABOLIC PANEL+MG Specimen Type: PLASMA No comment entered. Ordering Provider: JEVON ZAZUETA Report Released Date/Time: Jun 22, 2024 05:51 PM Reporting Lab: [facility] [address] Performing Lab: [facility] [address] CREATININE 0.7 mg/dL 0.7-1.2 UREA NITROGEN 16 [...] >90 >60 Jun 23, 2024 07:52 AM [facility] CBC & DIFF Specimen Type: BLOOD Comment: Automated Differential Performed Ordering Provider: JEVON ZAZUETA Report Released Date/Time: Jun 22, 2024 05:51 PM Reporting Lab: [facility] [address] Performing Lab: [facility] [address] WBC 14.9 H 4.0-11.0 RBC 5.09 4.60-6.20 [...] 0.1 0.0-0.1 Jun 22, 2024 06:10 PM [facility] CBC Specimen Type: BLOOD No comment entered. Ordering Provider: JEVON ZAZUETA Report Released Date/Time: Jun 22, 2024 05:51 PM Reporting Lab: [facility] [address] Performing Lab: [facility] [address] WBC 16.9 H 4.0-11.0 RBC 5.28 4.60-6.20 HGB 16.9 g/dL 13.5-17.9 HCT 50.4 41.0-54.0 MCV 95.5 fL 80.0-100.0 MCH 32.0 pg 27.0-33.0 MCHC 33.5 g/dL 32.0-37.5 PLT 223 150-400 MPV 10.9 fL 9.1-13.0 RDW 14.0 11.5-14.5 Jun 22, 2024 06:10 PM [facility] COMPREHENSIVE METABOLIC PANEL+MG Specimen Type: PLASMA No comment entered. Ordering Provider: JEVON ZAZUETA Report Released Date/Time: Jun 22, 2024 05:51 PM Reporting Lab: [facility] [address] Performing Lab: [facility] [address] CREATININE 0.7 mg/dL 0.7-1.2 UREA NITROGEN 17 [...] >90 >60 Jun 21, 2024 06:48 PM [facility] URINALYSIS Specimen Type: URINE No comment entered. Ordering Provider: DELIA MARTINEZ Report Released Date/Time: Jun 21, 2024 05:45 PM Reporting Lab: [facility] [address] Performing Lab: [facility] [address] URINE COLOR YELLOW SPECIFIC GRAVITY 1.041 H [...] 500 NEGATIVE Jun 21, 2024 05:34 PM [facility] POC CREATININE Specimen Type: BLOOD No comment entered. Ordering Provider: DELIA MARTINEZ Report Released Date/Time: Jun 21, 2024 06:07 PM Reporting Lab: [facility] [address] Performing Lab: [facility] [address] POC CREATININE 1.1 mg/dL 0.6-1.3 Jun 21, 2024 05:30 PM [facility] POC ABG/LACTATE Specimen Type: VENOUS BLOOD No comment entered. Ordering Provider: DELIA MARTINEZ Report Released Date/Time: Jun 21, 2024 06:07 PM Reporting Lab: [facility] [address] Performing Lab: [facility] [address] POC PH 7.470 H 7.31-7.41 POC PCO2 31.2 mm[Hg] L 41.00-51 .0 0 POC PO2 46 mm[Hg] H 35.0-40.0 POC TCO2 24 mmol/L 24.0-29.0 POC HCO3 22.7 mmol/L L 23.0-28.0 POC BE ECT -1 mmol/L POC SO2 85 H 70-75 POC LACTATE 1.85 mmol/L 0.90-1.70 Jun 21, 2024 05:24 PM [facility] PROTHROMBIN TIME/INR Specimen Type: PLASMA No comment entered. Ordering Provider: DELIA MARTINEZ Report Released Date/Time: Jun 21, 2024 05:30 PM Reporting Lab: [facility] [address] Performing Lab: [facility] [address] .INR 1.2 H 0.8-1.1 .PT 13.9 s H 9.4-12.5 Jun 21, 2024 05:24 PM [facility] LIPASE Specimen Type: PLASMA No comment entered. Ordering Provider: DELIA MARTINEZ Report Released Date/Time: Jun 21, 2024 05:30 PM Reporting Lab: [facility] [address] Performing Lab: [facility] [address] LIPASE 32 U/L <60 Jun 21, 2024 05:24 PM [facility] EXTRA GOLD GEL TUBE Specimen Type: SERUM No comment entered. Ordering Provider: DELIA MARTINEZ Report Released Date/Time: Jun 21, 2024 05:41 PM Reporting Lab: [facility] [address] Performing Lab: [facility] [address] EXTRA GOLD GEL TUBE RECEIVED Jun 21, 2024 05:24 PM [facility] COMPREHENSIVE METABOLIC PANEL+MG Specimen Type: PLASMA No comment entered. Ordering Provider: DELIA MARTINEZ Report Released Date/Time: Jun 21, 2024 05:30 PM Reporting Lab: [facility] [address] Performing Lab: [facility] [address] CREATININE 0.9 mg/dL 0.7-1.2 UREA NITROGEN 29 [...] mg/dL <0.5 Jun 21, 2024 05:24 PM [facility] CBC & DIFF Specimen Type: BLOOD Comment: Manual Differential Performed Ordering Provider: DELIA MARTINEZ Report Released Date/Time: Jun 21, 2024 05:30 PM Reporting Lab: [facility] [address] Performing Lab: [facility] [address] WBC 21.3 H 4.0-11.0 RBC 5.48 4.60-6.20 [...] MORPHOLOGY PRESENT Jun 08, 2024 10:59 AM [facility] PROTHROMBIN TIME/INR Specimen Type: PLASMA No comment entered. Ordering Provider: MARYBETH POWELL Report Released Date/Time: May 28, 2024 09:02 AM Reporting Lab: [facility] [address] Performing Lab: [facility] [address] .INR 1.0 0.8-1.1 .PT 11.8 s 9.4-12.5 Jun 08, 2024 10:59 AM [facility] HEMOGLOBIN A1C Specimen Type: BLOOD Comment: Values [...] May 28, 2024 09:02 AM Reporting Lab: [facility] [address] Performing Lab: [facility] [address] HEMOGLOBIN A1C 4.9 4.0-6.0 Jun 08, 2024 10:59 AM [facility] CBC Specimen Type: BLOOD No comment entered. Ordering Provider: MARYBETH POWELL Report Released Date/Time: May 28, 2024 09:02 AM Reporting Lab: [facility] [address] Performing Lab: [facility] [address] WBC 16.1 H 4.0-11.0 RBC 5.02 4.60-6.20 HGB 16.0 g/dL 13.5-17.9 HCT 47.1 41.0-54.0 MCV 93.8 fL 80.0-100.0 MCH 31.9 pg 27.0-33.0 MCHC 34.0 g/dL 32.0-37.5 PLT 228 150-400 MPV 10.3 fL 9.1-13.0 RDW 14.6 H 11.5-14.5 Jun 08, 2024 10:59 AM [facility] BASIC METABOLIC PANEL+MG Specimen Type: PLASMA No comment entered. Ordering Provider: MARYBETH POWELL Report Released Date/Time: May 28, 2024 09:02 AM Reporting Lab: [facility] [address] Performing Lab: [facility] [address] CREATININE 0.9 mg/dL 0.7-1.2 UREA NITROGEN 15 [...] PM 97.2 60 130/68 18 94 0 [facility] Jul 07, 2024 04:59 PM 98 86 116/64 16 96 4 [facility] Jul 07, 2024 12:24 AM 97.4 101 133/81 18 97 6 [facility] Social History: Smoking Status (Most current) and Tobacco Use (All prior to encounter date) This section includes the most current, and the historical, smoking and tobacco- related health factors from the [place] facility where the Encounter took place. Current Smoking Status This section includes the most current smoking, or tobacco-related health factor, from the [place] facility where the Encounter took place. Date/Time Current Smoking Status Comment Juan Manuel ity May 15, 2024 08:30 AM [place]-TOBACCO FORMER USER [facility] Tobacco Use History This section includes a history of the smoking, or tobacco-related health factors, that were collected on or before the date of the Encounter. The data comes from the [place] facility where the Encounter took place. Date/Time Smoking Status/Tobacco Use Comment F acility May 15, 2024 08:30 AM [place]-TOBACCO QUIT 15 YRS OR MORE [facility] May 06, 2023 11:30 AM VA-TOBACCO FORMER USER [facility] May 06, 2023 11:30 AM VA-TOBACCO QUIT [...] Mar 23, 2016 CLINICAL WARNING [facility] Radiology Reports: +/- 30 days [...] VIEWS LILIAM Mustafa ND LAT: MEGFLACA YAMIL [id number] -[id number] M Exm Date: JUL 08, 2024@10:09 Req Phys: KATELYNN PERSON Loc: 2KG/07-08-2024@11:49 Img Loc: MAIN X-RAY Service: [place] [address] (Case 24 COMPLETE) CHEST 2 VIEWS PA AND LAT (RAD Detailed) CPT:28804 Reason for Study: Uptrending WBC, POD 5 Clinical History: [place] IS NOT under investigation for COVID-19 or is COVID-19 negative POD 5, work up for uptrending wbc Responsible provider name and phone number to notify for critical findings if other than user placing the order and pager listed below: User placing orders pager: Katelynn Person LAST CREATININE 0.9 (07/07/24) Report Status: Verified Date Reported: JUL 08, 2024 Date Verified: JUL 08, 2024 Steward/Stewardess Second E-Sig: Report: CHEST 2 VIEWS PA AND LAT HISTORY: Uptrending WBC, POD 5 COMPARISON: CT chest 11/12/2022 TECHNIQUE: Frontal and lateral views of the chest, submitted to the [place] National Teleradiology Program (NTP) for interpretation. FINDINGS: Lungs: Clear. No focal consolidation. No pulmonary edema. Pleura: No pleural effusion or pneumothorax. Mediastinum: Normal size and contour. Bones: Unremarkable. Impression: No acute cardiopulmonary disease. READING PHYSICIAN: Sarbjit Vaughn M.D. -[phone] 07/08/2024 12:46 EST [facility] National Teleradiology Program [phone] (For Medical Practitioner Use Only) Attention Patients / Veterans: If you have questions or concerns about these test results, please contact your ordering provider or primary care team. Primary Interpreting Staff: RADIOLOGY,OUTSIDE SERVICE, Staff Physician / RADIOLOGY,OUTSIDE SERVICE [facility] Jul 08, 2024 10:[address] (AP) ABDOMEN/PE LVIS W CONTRAST: FLACA WEAVER [id number] -1950 M Exm Date: JUL 08, 2024@10:00 Req Phys: KATELYNN PERSON Pat Loc: 2KG/07-08-2024@12:07 Img Loc: CT IMAGING Service: [place] [address] (Case 22 COMPLETE) CT (AP) ABDOMEN/PELVIS W CONTRAST(CT Detailed) CPT:18647 Contrast Media : Non-ionic Iodinated Reason for [...] PLASMA .CREAT EGFR(CKD-E >90 Ref: >=60 Allergies: ([place] only) TERAZOSIN (Mar 13, 2015) Report Status: Verified Date Reported: JUL 08, 2024 Date Verified: JUL 08, 2024 Steward/Stewardess Second E-Sig: Report: CT (AP) ABDOMEN/PELVIS W CONTRAST HISTORY: POD 5, Uptrending WBC - Concern for Abscess/other infection COMPARISON: June 21, 2024 TECHNIQUE: CT abdomen and pelvis was performed after intravenous contrast. Axial, sagittal and coronal reformatted images. The study was performed at the local [place] facility and images were sent to the [place] National Teleradiology Program (NTP) for interpretation. Number [...] as noted above READING PHYSICIAN: Celestino Blanc -[phone] 07/08/2024 13:04 [facility] [phone] (For Medical Practitioner Use Only) Attention Patients / Veterans: If you have questions or concerns about these test results, please contact your ordering provider or primary care team. Primary Interpreting Staff: RADIOLOGY,OUTSIDE SERVICE, Staff Physician / RADIOLOGY,OUTSIDE SERVICE [facility] Jun 22, 2024 11:49 AM ABSCESS DRAIN PLAC EMENT PERITONEAL (P): FLACA WEAVER [id number] -1950 M Exm Date: JUN 22, 2024@11:49 Req Phys: ANGELA HOLDEN Loc: [facility]06-22-2024@17:14 Img Loc: INTERVENTIONAL RADIOLOGY Service: [place] [address] (Case [id number] COMPLETE) IR PERITONEAL/RETROPERITONEAL PER(ANI Detailed) CPT:64314 Reason for Study: diverticulitis with abscess (Case 3570 COMPLETE) IR MOD SEDATION 10-22 MIN (ANI Detailed) CPT:77205 Clinical History: [place] IS NOT under investigation for COVID-19 or is COVID-19 negative 73 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 please place abscess drain. Contact number for responsible provider who can be reached for any questions or notifications of critical findings: [phone] n/a LAST CREATININE 0.9 (06/21/24) Report Status: Verified Date Reported: JUN 22, 2024 Date Verified: JUN 22, 2024 Steward/Stewardess Second E-Sig:/ES/LISA PENDLETON MD Report: PROCEDURES: Placement of [...] obtained. A pre-procedural Time-Out was performed per [facility] policy. The patient was placed in the supine position on the CT table. Preprocedural scan performed. The suprapubic region/lower abdominal wall was sterilely prepped and draped in the usual fashion.1% lidocaine without epinephrine was used for local anesthesia. Using real-time CT fluoroscopy, a 5 [place] [employer] catheter was advanced into the collection in the left pelvis. A wire was coiled in the collection. The tract into the collection was dilated to accommodate the 12 [place] locking pigtail drainage catheter. There was return [...] Primary Interpreting Staff: LISA PENDLETON MD, RADIOLOGIST (Steward/Stewardess Second) /JRT LISA PENDLETON [facility] Jun 22, 2024 11:[address] NEEDLE PLACEMEN T (P): MEGFLACA YAMIL [id number] -1950 M Exm Date: JUN 22, 2024@11:48 Req Phys: ANGELA HOLDEN Loc: 2KC/06-22-2024@17:14 Img Loc: CT IMAGING Service: [place] [address] (Case [id number] COMPLETE) CT SCAN FOR NEEDLE PLACEMENT (CT Detailed) CPT:25045 Reason for Study: l pelvic abscess drain Clinical History: Report Status: Verified Date Reported: JUN 22, 2024 Date Verified: JUN 22, 2024 Steward/Stewardess Second E-Sig:/ES/LISA PENDLETON MD Report: PROCEDURES: Placement of [...] obtained. A pre-procedural Time-Out was performed per [facility] policy. The patient was placed in the supine position on the CT table. Preprocedural scan performed. The suprapubic region/lower abdominal wall was sterilely prepped and draped in the usual fashion.1% lidocaine without epinephrine was used for local anesthesia. Using real-time CT fluoroscopy, a 5 [place] [employer] catheter was advanced into the collection in the left pelvis. A wire was coiled in the collection. The tract into the collection was dilated to accommodate the 12 [place] locking pigtail drainage catheter. There was return [...] Primary Interpreting Staff: LISA PENDLETON MD, RADIOLOGIST (Steward/Stewardess Second) /JRT LISA PENDLETON [facility] Jun 21, 2024 06:[address] (AP) ABDOMEN/PE LVIS (P): FLACA WEAVER [id number] -1950 M Exm Date: JUN 21, 2024@18:09 Req Phys: DELIA MARTINEZ Loc: [facility] (Re Img Loc: CT IMAGING Service: [place] [address] (Case [id number] COMPLETE) CT (AP) ABDOMEN/PELVIS W CONTRAST(CT Detailed) CPT:45748 Contrast Media : Non-ionic Iodinated Reason for [...] PLASMA .CREAT EGFR(CKD-E >90 Ref: >=60 Allergies: ([place] only) TERAZOSIN (Mar 13, 2015) Defer to [...] 21, 2024 Date Verified: JUN 21, 2024 Steward/Stewardess Second E-Sig:/ALEXI/CARLOS A CUNNINGHAM DO Report: EXAMINATION: CT [...] Interpreting Staff: CARLOS A CUNNINGHAM DO, RADIOLOGIST (Steward/Stewardess Second) /CARLOS A ROWELL [facility] Pathology Reports: +/- 30 [...] comes from all [place] treatment facilities. Date/Time Pathology Report Provider Source Jul 03, 2024 05:59 AM LR SURGICAL PATHOL OGY REPORT: LOCAL TITLE: LR SURGICAL PATHOLOGY REPORT STANDARD TITLE: PATHOLOGY REPORT DATE OF NOTE: JUL 06, 2024@10:40:48 ENTRY DATE: JUL 06, 2024@10:40:48 AUTHOR: EDUARDO PALOMARES EXP COSIGNER: URGENCY: STATUS: COMPLETED $APHDR Reporting Lab: [facility] [CLIA# [id number]] [place] [address] - - - - - - - [...] - PATHOLOGY REPORT Accession No. [id number] - - - - - - - [...] - PATHOLOGY REPORT Accession No. [id number] - - - - - - - [...] Second circumferential surgical margin, en face; E-F: Abstract Maker diverticula; G: Abstract Maker section of mesentery; H: Random agency sales representative section of additional adipose tissue [...] Performing Laboratory: Surgical Pathology Report Performed By: [facility] [CLIA# [id number]] [place] [address] $FTR - - - - - - [...] - - FLACA WEAVER STANDARD FORM 515 ID:[id number] SEX:M :1950 AGE: 73 LOC:05675 ADM:Jun DX:DIVERTICULITIS PCP: Jatinder Cabrera /alexi/ EDUARDO PALOMARES MD STAFF PATHOLOGIST Signed: 07/06/2024 10:40 EDUARDO PALOMARES [facility] Jun 22, 2024 01:15 PM LR MICROBIOLOGY RE PORT: Reporting Lab: [facility] [CLIA# [id number]] [place] [address] Accession [UID]: [id number] [[id number]] Received: Jun 22, 2024@13:38 Collection sample: FLUID Collection date: Jun 22, 2024 13:15 Provider: ANGELA HOLDEN Comment on specimen: LLQ ABSCESS, RECEIVED IN ANAEROBIC TRANSPORT VIAL Test(s) ordered: GRAM STAIN.................... completed: Jun 22, 2024 15:03 CULTURE & SUSCEPTIBILITY...... completed: Jun 25, 2024 * BACTERIOLOGY FINAL REPORT => Jun 25, 2024 10:56 [facility] CODE: [id number] GRAM STAIN: DIRECT SMEAR of specimen before [...] -=--=--=--=--=--=--=-- Performing Laboratory: Bacteriology Report Performed By: [facility] [CLIA# [id number]] [place] [address] [facility] Jun 22, 2024 01:15 PM LR MICROBIOLOGY RE PORT: Reporting Lab: [facility] [CLIA# [id number]] [place] [address] Accession [UID]: [id number] [[id number]] Received: Jun 22, 2024@13:38 Collection sample: FLUID Collection date: Jun 22, 2024 13:15 Provider: ANGELA HOLDEN Comment on specimen: LLQ ABSCESS, RECEIVED IN ANAEROBIC TRANSPORT VIAL Test(s) ordered: ANAEROBIC CULTURE............. completed: Jun 28, 2024 * BACTERIOLOGY FINAL REPORT => Jun 28, 2024 10:08 TECH CODE: [id number] CULTURE RESULTS: HEAVY GROWTH MIXED ANAEROBES Comment: including the followin+ Bacteroides fragilis 4+ Bacteroides vulgatus 4+ Clostridium innocuum Beta-lactamase negative 4+ Bacteroides caccae 4+ Parvimonas micra 4+ Bacteroides uniformis 4+ Gemella morbillorum 4+ anaerobic small, Gram Positive Rods 4+ Bacteroides thetaiotaomicron Standard workup is now complete. Bacteriology Remark(s): THIS REPORT IS FINAL =--=--=--=--=--=--=--=--=--= --=--=--=--=--=--=--=--=--=- -=--=--=--=--=--=--=-- Performing Laboratory: Bacteriology Report Performed By: [facility] [CLIA# [id number]] [place] [address] [facility] Jun 21, 2024 06:12 PM LR MICROBIOLOGY RE PORT: Reporting Lab: [facility] [CLIA# [id number]] [place] [address] Accession [UID]: [id number] [[id number]] Received: Jun 21, 2024@18:12 Collection sample: BLOOD [...] -=--=--=--=--=--=--=-- Performing Laboratory: Bacteriology Report Performed By: [facility] [CLIA# [id number]] [place] [address] [facility] Jun 21, 2024 06:11 PM LR MICROBIOLOGY RE PORT: Reporting Lab: [facility] [CLIA# [id number]] [place] [address] Accession [UID]: [id number] [[id number]] Received: Jun 21, 2024@18:11 Collection sample: BLOOD [...] -=--=--=--=--=--=--=-- Performing Laboratory: Bacteriology Report Performed By: [facility] [CLIA# [id number]] [place] [address] [facility] Jun 08, 2024 11:00 AM LR MICROBIOLOGY RE PORT: Reporting Lab: [facility] [CLIA# [id number]] [place] [address] Accession [UID]: [id number] [[id number]] Received: Jun 08, 2024@11:00 Collection sample: URINE Collection date: Jun 08, 2024 11:00 Provider: MARYBETH POWELL Comment on specimen: urine Test(s) ordered: CULTURE & SUSCEPTIBILITY...... completed: Jun 09, 2024 * BACTERIOLOGY FINAL REPORT => Jun 09, 2024 19:12 TECH CODE: [id number] CULTURE RESULTS: ESCHERICHIA COLI - Quantity: >100,000 [...] -=--=--=--=--=--=--=-- Performing Laboratory: Bacteriology Report Performed By: [facility] [CLIA# [id number]] [place] [address] [facility]
--- OUTSIDE RECORDS SUMMARY | 2024-07-16 07:19 | XMS_ITS | Encounter Summary ---
Author Name [facility] [place] [facility] [place] Address [address] [place] [address] Care Team Providers Care Forgeman Helper Name Role Phone JATINDER CABRERA Primary Care [...] PART A Sep 29, 2016 PART A [id number] [phone] JUDY WEAVER PATIENT Selected Encounter This section includes the information on record at [place] for the Encounter. Date/Time Encounter Type Encounter Description Reason Pro vider Source Jul 06, 2024 01:00 AM Inpatient Visit ADMIN PAT ACTIVTIES ([employer]) SYSTEM,[facility] IHE Encounter Template Text not used [...] 13, 2024 08:15 AM AMBULATORY - NONE [facility] Active, Pending, and Scheduled Orders This section includes a listing of several types of active, pending, and scheduled orders, including clinic medications orders, diagnostic test orders, procedure orders and consult orders; where the start date of the order is 45 days before the date of the Encounter or 45 days after the date of theEncounter. The data comes from all [facility]. Test Date/Time Test Type Test Details Facility Name May 28, 2024 12:00 AM Laboratory - Blood Bank Order TYPE & SCREEN - LAB BLOOD SP [facility] Jun 08, 2024 09:57 AM Laboratory - Chemi stry Order URINALYSIS URINE WC ONCE [facility] Jun 12, 2024 12:00 AM Laboratory - Chemi stry Order BNP PLASMA SP ONCE [facility] Jun 21, 2024 05:45 PM Laboratory - Blood Bank Order TYPE & SCREEN - LAB BLOOD WC [facility] Jul 03, 2024 12:00 AM Laboratory - Blood Bank Order TYPE & SCREEN - LAB BLOOD WC [facility] Jul 16, 2024 12:00 AM Laboratory - Chemi stry Order CBC BLOOD SP ONCE [facility] Jul 17, 2024 12:00 AM Laboratory - Chemi stry Order BASIC METABOLIC PANEL+MG PLASMA SP ONCE [facility] Lab Results: +/- 30 days of [...] Range Comment Jul 10, 2024 07:16 AM [facility] PHOSPHORUS Specimen Type: PLASMA No comment entered. Ordering Provider: JUANCARLOS ECHOLS S Report Released Date/Time: Jul 09, 2024 12:23 PM Reporting Lab: [facility] [address] Performing Lab: [facility] [address] PHOSPHORUS 3.0 mg/dL 2.3-4.3 Jul 10, 2024 07:16 AM [facility] BASIC METABOLIC PANEL+MG Specimen Type: PLASMA No comment entered. Ordering Provider: JUANCARLOS ECHOLS S Report Released Date/Time: Jul 09, 2024 12:23 PM Reporting Lab: [facility] [address] Performing Lab: [facility] [address] CREATININE 0.7 mg/dL 0.7-1.2 UREA NITROGEN 27 mg/dL H 8-26 GLUCOSE 104 mg/dL H 70-100 SODIUM 133 mmol/L L 136-145 POTASSIUM 4.3 mmol/L 3.5-5.1 CHLORIDE 102 mmol/L 98-107 CO2 19 mmol/L L 22-29 CALCIUM 10.1 mg/dL 8.4-10.2 MAGNESIUM 1.9 mg/dL 1.6-2.6 ANION GAP 12 mmol/L 5-15 .CREAT EGFR(CKD-EPI) >90 >60 Jul 10, 2024 07:15 AM [facility] CBC Specimen Type: BLOOD No comment entered. Ordering Provider: JUANCARLOS ECHOLS S Report Released Date/Time: Jul 09, 2024 12:23 PM Reporting Lab: [facility] [address] Performing Lab: [facility] [address] WBC 18.8 H 4.0-11.0 RBC 5.08 4.60-6.20 HGB 15.9 g/dL 13.5-17.9 HCT 46.8 41.0-54.0 MCV 92.1 fL 80.0-100.0 MCH 31.3 pg 27.0-33.0 MCHC 34.0 g/dL 32.0-37.5 PLT 479 H 150-400 MPV 10.2 fL 9.1-13.0 RDW 13.7 11.5-14.5 Jul 09, 2024 07:08 AM [facility] CBC Specimen Type: BLOOD No comment entered. Ordering Provider: QUYNH WEISS Report Released Date/Time: Jul 08, 2024 06:18 PM Reporting Lab: [facility] [address] Performing Lab: [facility] [address] WBC 15.3 H 4.0-11.0 RBC 4.91 4.60-6.20 HGB 15.1 g/dL 13.5-17.9 HCT 45.7 41.0-54.0 MCV 93.1 fL 80.0-100.0 MCH 30.8 pg 27.0-33.0 MCHC 33.0 g/dL 32.0-37.5 PLT 443 H 150-400 MPV 10.0 fL 9.1-13.0 RDW 13.5 11.5-14.5 Jul 08, 2024 10:50 AM [facility] URINALYSIS Specimen Type: URINE No comment entered. Ordering Provider: KATELYNN PERSON Report Released Date/Time: Jul 08, 2024 08:41 AM Reporting Lab: [facility] [address] Performing Lab: [facility] [address] URINE COLOR YELLOW SPECIFIC GRAVITY >1.050 H [...] NEGATIVE NEGATIVE Jul 08, 2024 09:54 AM [facility] CBC Specimen Type: BLOOD Comment: Specimen received in Lab at: [id number] Ordering Provider: JUANCARLOS ECHOLS Report Released Date/Time: Jul 07, 2024 04:49 PM Reporting Lab: [facility] [address] Performing Lab: [facility] [address] WBC 17.5 H 4.0-11.0 RBC 4.88 4.60-6.20 HGB 14.9 g/dL 13.5-17.9 HCT 45.7 41.0-54.0 MCV 93.6 fL 80.0-100.0 MCH 30.5 pg 27.0-33.0 MCHC 32.6 g/dL 32.0-37.5 PLT 472 H 150-400 MPV 10.2 fL 9.1-13.0 RDW 13.7 11.5-14.5 Jul 08, 2024 09:54 AM [facility] PHOSPHORUS Specimen Type: PLASMA Comment: Specimen received in Lab at: 0952 Ordering Provider: JUANCARLOS ECHOLS S Report Released Date/Time: Jul 07, 2024 04:49 PM Reporting Lab: [facility] [address] Performing Lab: [facility] [address] PHOSPHORUS 2.6 mg/dL 2.3-4.3 Jul 08, 2024 09:54 AM [facility] BASIC METABOLIC PANEL+MG Specimen Type: PLASMA Comment: Specimen received in Lab at: 0952 Ordering Provider: JUANCARLOS ECHOLS S Report Released Date/Time: Jul 07, 2024 04:49 PM Reporting Lab: [facility] [address] Performing Lab: [facility] [address] CREATININE 0.9 mg/dL 0.7-1.2 UREA NITROGEN 26 mg/dL 8-26 GLUCOSE 128 mg/dL H 70-100 SODIUM 134 mmol/L L 136-145 POTASSIUM 3.4 mmol/L L 3.5-5.1 CHLORIDE 100 mmol/L 98-107 CO2 24 mmol/L 22-29 CALCIUM 9.8 mg/dL 8.4-10.2 MAGNESIUM 1.8 mg/dL 1.6-2.6 ANION GAP 10 mmol/L 5-15 .CREAT EGFR(CKD-EPI) >90 >60 Jul 07, 2024 02:00 PM [facility] C DIFF PANEL Specimen Type: FECES No comment entered. Ordering Provider: JEVON ZAZUETA Report Released Date/Time: Jul 07, 2024 12:26 PM Reporting Lab: [facility] [address] Performing Lab: [facility] [address] C DIFF TOX B GENE PCR NEGATIVE Negative Jul 07, 2024 07:41 AM [facility] PHOSPHORUS Specimen Type: PLASMA No comment entered. Ordering Provider: JEVON ZAZUETA Report Released Date/Time: Jul 06, 2024 03:44 PM Reporting Lab: [facility] [address] Performing Lab: [facility] [address] PHOSPHORUS 3.1 mg/dL 2.3-4.3 Jul 07, 2024 07:41 AM [facility] BASIC METABOLIC PANEL+MG Specimen Type: PLASMA No comment entered. Ordering Provider: JEVON ZAZUETA Report Released Date/Time: Jul 06, 2024 03:44 PM Reporting Lab: [facility] [address] Performing Lab: [facility] [address] CREATININE 0.9 mg/dL 0.7-1.2 UREA NITROGEN 20 mg/dL 8-26 GLUCOSE 157 mg/dL H 70-100 SODIUM 136 mmol/L 136-145 POTASSIUM 3.7 mmol/L 3.5-5.1 CHLORIDE 102 mmol/L 98-107 CO2 21 mmol/L L 22-29 CALCIUM 9.8 mg/dL 8.4-10.2 MAGNESIUM 1.9 mg/dL 1.6-2.6 ANION GAP 13 mmol/L 5-15 .CREAT EGFR(CKD-EPI) >90 >60 Jul 07, 2024 07:40 AM [facility] CBC Specimen Type: BLOOD No comment entered. Ordering Provider: JEVON ZAZUETA Report Released Date/Time: Jul 06, 2024 03:44 PM Reporting Lab: [facility] [address] Performing Lab: [facility] [address] WBC 21.2 H 4.0-11.0 RBC 5.09 4.60-6.20 HGB 15.9 g/dL 13.5-17.9 HCT 48.3 41.0-54.0 MCV 94.9 fL 80.0-100.0 MCH 31.2 pg 27.0-33.0 MCHC 32.9 g/dL 32.0-37.5 PLT 500 H 150-400 MPV 10.3 fL 9.1-13.0 RDW 13.6 11.5-14.5 Jul 06, 2024 07:21 AM [facility] CBC Specimen Type: BLOOD No comment entered. Ordering Provider: JEVON ZAZUETA Report Released Date/Time: Jul 05, 2024 01:22 PM Reporting Lab: [facility] [address] Performing Lab: [facility] [address] WBC 18.0 H 4.0-11.0 RBC 4.83 4.60-6.20 HGB 14.6 g/dL 13.5-17.9 HCT 45.5 41.0-54.0 MCV 94.2 fL 80.0-100.0 MCH 30.2 pg 27.0-33.0 MCHC 32.1 g/dL 32.0-37.5 PLT 368 150-400 MPV 10.4 fL 9.1-13.0 RDW 13.6 11.5-14.5 Jul 06, 2024 07:21 AM [facility] PHOSPHORUS Specimen Type: PLASMA No comment entered. Ordering Provider: JEVON ZAZUETA Report Released Date/Time: Jul 05, 2024 01:22 PM Reporting Lab: [facility] [address] Performing Lab: [facility] [address] PHOSPHORUS 3.6 mg/dL 2.3-4.3 Jul 06, 2024 07:21 AM [facility] BASIC METABOLIC PANEL+MG Specimen Type: PLASMA No comment entered. Ordering Provider: JEVON ZAZUETA Report Released Date/Time: Jul 05, 2024 01:22 PM Reporting Lab: [facility] [address] Performing Lab: [facility] [address] CREATININE 0.7 mg/dL 0.7-1.2 UREA NITROGEN 12 mg/dL 8-26 GLUCOSE 108 mg/dL H 70-100 SODIUM 138 mmol/L 136-145 POTASSIUM 3.4 mmol/L L 3.5-5.1 CHLORIDE 104 mmol/L 98-107 CO2 20 mmol/L L 22-29 CALCIUM 9.3 mg/dL 8.4-10.2 MAGNESIUM 1.9 mg/dL 1.6-2.6 ANION GAP 14 mmol/L 5-15 .CREAT EGFR(CKD-EPI) >90 >60 Jul 05, 2024 07:17 AM [facility] MAGNESIUM Specimen Type: PLASMA No comment entered. Ordering Provider: JUANCARLOS ECHOLS S Report Released Date/Time: Jul 04, 2024 09:39 AM Reporting Lab: [facility] [address] Performing Lab: [facility] [address] MAGNESIUM 2.0 mg/dL 1.6-2.6 Jul 05, 2024 07:17 AM [facility] PHOSPHORUS Specimen Type: PLASMA No comment entered. Ordering Provider: JUANCARLOS ECHOLS S Report Released Date/Time: Jul 04, 2024 09:39 AM Reporting Lab: [facility] [address] Performing Lab: [facility] [address] PHOSPHORUS 2.0 mg/dL L 2.3-4.3 Jul 05, 2024 07:17 AM [facility] BASIC METABOLIC PANEL+MG Specimen Type: PLASMA No comment entered. Ordering Provider: JUANCARLOS ECHOLS S Report Released Date/Time: Jul 04, 2024 09:39 AM Reporting Lab: [facility] [address] Performing Lab: [facility] [address] CREATININE 0.7 mg/dL 0.7-1.2 UREA NITROGEN 12 mg/dL 8-26 GLUCOSE 84 mg/dL 70-100 SODIUM 135 mmol/L L 136-145 POTASSIUM 3.8 mmol/L 3.5-5.1 CHLORIDE 104 mmol/L 98-107 CO2 24 mmol/L 22-29 CALCIUM 9.3 mg/dL 8.4-10.2 MAGNESIUM 2.0 mg/dL 1.6-2.6 ANION GAP 7 mmol/L 5-15 .CREAT EGFR(CKD-EPI) >90 >60 Jul 05, 2024 07:16 AM [facility] CBC Specimen Type: BLOOD No comment entered. Ordering Provider: JUANCARLOS ECHOLS S Report Released Date/Time: Jul 04, 2024 09:39 AM Reporting Lab: [facility] [address] Performing Lab: [facility] [address] WBC 18.3 H 4.0-11.0 RBC 4.49 L 4.60-6.20 HGB 14.1 g/dL 13.5-17.9 HCT 43.4 41.0-54.0 MCV 96.7 fL 80.0-100.0 MCH 31.4 pg 27.0-33.0 MCHC 32.5 g/dL 32.0-37.5 PLT 317 150-400 MPV 10.0 fL 9.1-13.0 RDW 13.9 11.5-14.5 Jul 04, 2024 07:17 AM [facility] PHOSPHORUS Specimen Type: PLASMA No comment entered. Ordering Provider: GABINO CAMERON Report Released Date/Time: Jul 03, 2024 06:31 PM Reporting Lab: [facility] [address] Performing Lab: [facility] [address] PHOSPHORUS 2.8 mg/dL 2.3-4.3 Jul 04, 2024 07:17 AM [facility] BASIC METABOLIC PANEL+MG Specimen Type: PLASMA No comment entered. Ordering Provider: GABINO CAMERON Report Released Date/Time: Jul 03, 2024 06:31 PM Reporting Lab: [facility] [address] Performing Lab: [facility] [address] CREATININE 0.7 mg/dL 0.7-1.2 UREA NITROGEN 16 mg/dL 8-26 GLUCOSE 129 mg/dL H 70-100 SODIUM 137 mmol/L 136-145 POTASSIUM 3.7 mmol/L 3.5-5.1 CHLORIDE 107 mmol/L 98-107 CO2 22 mmol/L 22-29 CALCIUM 9.0 mg/dL 8.4-10.2 MAGNESIUM 1.9 mg/dL 1.6-2.6 ANION GAP 8 mmol/L 5-15 .CREAT EGFR(CKD-EPI) >90 >60 Jul 04, 2024 07:16 AM [facility] CBC Specimen Type: BLOOD No comment entered. Ordering Provider: GABINO CAMERON Report Released Date/Time: Jul 03, 2024 06:31 PM Reporting Lab: [facility] [address] Performing Lab: [facility] [address] WBC 20.6 H 4.0-11.0 RBC 4.63 4.60-6.20 HGB 14.2 g/dL 13.5-17.9 HCT 43.4 41.0-54.0 MCV 93.7 fL 80.0-100.0 MCH 30.7 pg 27.0-33.0 MCHC 32.7 g/dL 32.0-37.5 PLT 329 150-400 MPV 10.4 fL 9.1-13.0 RDW 13.8 11.5-14.5 Jul 04, 2024 07:16 AM [facility] CBC & DIFF Specimen Type: BLOOD Comment: Manual Differential Performed Ordering Provider: GABINO CAMERON Report Released Date/Time: Jul 03, 2024 06:31 PM Reporting Lab: [facility] [address] Performing Lab: [facility] [address] WBC 20.6 H 4.0-11.0 RBC 4.63 4.60-6.20 [...] MORPHOLOGY PRESENT Jul 04, 2024 07:15 AM [facility] BNP Specimen Type: PLASMA No comment entered. Ordering Provider: GABINO CAMERON Report Released Date/Time: Jul 03, 2024 06:31 PM Reporting Lab: [facility] [address] Performing Lab: [facility] [address] BNP 292 pg/mL H <99 Jul 03, 2024 10:32 PM [facility] FINGERSTICK GLUCOSE Specimen Type: BLOOD Comment: Save Result Nurse Notified Ordering Provider: KATELYNN PERSON Report Released Date/Time: Jul 03, 2024 10:50 PM Reporting Lab: [facility] [address] Performing Lab: [facility] [address] FINGERSTICK GLUCOSE 126 mg/dL H 70-100 Jul 03, 2024 05:33 PM [facility] FINGERSTICK GLUCOSE Specimen Type: BLOOD Comment: Save Result Nurse Notified Ordering Provider: KATELYNN PERSON Report Released Date/Time: Jul 03, 2024 05:46 PM Reporting Lab: [facility] [address] Performing Lab: [facility] [address] FINGERSTICK GLUCOSE 141 mg/dL H 70-100 Jul 03, 2024 02:31 PM [facility] POC ABG/ELECTROLYTES Specimen Type: ARTERIAL BLOOD Comment: FIO2 = 97% Patient Temp: 36.0 C Sample Type = ARTERIAL Ordering Provider: MAZIN ARREDONDO Report Released Date/Time: Jul 03, 2024 01:48 PM Reporting Lab: [facility] [address] Performing Lab: [facility] [address] POC PH 7.387 7.35-7.45 POC PCO2 34.4 [...] H 80.0-105.0 Jul 03, 2024 01:05 PM [facility] POC ABG/ELECTROLYTES Specimen Type: ARTERIAL BLOOD Comment: FIO2 = 53% Patient Temp: 36.2 C Sample Type = ARTERIAL Ordering Provider: MAZIN ARREDONDO Report Released Date/Time: Jul 03, 2024 01:48 PM Reporting Lab: [facility] [address] Performing Lab: [facility] [address] POC PH 7.280 L 7.35-7.45 POC PCO2 [...] mm[Hg] 80.0-105.0 Jul 03, 2024 06:15 AM [facility] URINALYSIS Specimen Type: URINE No comment entered. Ordering Provider: MARYBETH POWELL Report Released Date/Time: Jun 12, 2024 04:01 PM Reporting Lab: [facility] [address] Performing Lab: [facility] [address] URINE COLOR YELLOW SPECIFIC GRAVITY 1.031 1.003-1.03 [...] 250 NEGATIVE Jul 03, 2024 06:13 AM [facility] CBC Specimen Type: BLOOD No comment entered. Ordering Provider: MARYBETH POWELL Report Released Date/Time: Jun 12, 2024 03:59 PM Reporting Lab: [facility] [address] Performing Lab: [facility] [address] WBC 15.8 H 4.0-11.0 RBC 5.11 4.60-6.20 HGB 16.1 g/dL 13.5-17.9 HCT 49.1 41.0-54.0 MCV 96.1 fL 80.0-100.0 MCH 31.5 pg 27.0-33.0 MCHC 32.8 g/dL 32.0-37.5 PLT 357 150-400 MPV 9.8 fL 9.1-13.0 RDW 13.7 11.5-14.5 Jun 24, 2024 09:50 AM [facility] BASIC METABOLIC PANEL+MG Specimen Type: PLASMA Comment: Specimen received in Lab at: 0948 Ordering Provider: JEVON ZAZUETA Report Released Date/Time: Jun 23, 2024 06:07 PM Reporting Lab: [facility] [address] Performing Lab: [facility] [address] CREATININE 0.8 mg/dL 0.7-1.2 UREA NITROGEN 13 mg/dL 8-26 GLUCOSE 135 mg/dL H 70-100 SODIUM 135 mmol/L L 136-145 POTASSIUM 3.6 mmol/L 3.5-5.1 CHLORIDE 103 mmol/L 98-107 CO2 24 mmol/L 22-29 CALCIUM 9.2 mg/dL 8.4-10.2 MAGNESIUM 1.9 mg/dL 1.6-2.6 ANION GAP 8 mmol/L 5-15 .CREAT EGFR(CKD-EPI) >90 >60 Jun 24, 2024 09:50 AM [facility] CBC Specimen Type: BLOOD Comment: Specimen received in Lab at: 0948 Ordering Provider: JEVON ZAZUETA Report Released Date/Time: Jun 23, 2024 06:07 PM Reporting Lab: [facility] [address] Performing Lab: [facility] [address] WBC 15.5 H 4.0-11.0 RBC 4.93 4.60-6.20 HGB 15.2 g/dL 13.5-17.9 HCT 46.5 41.0-54.0 MCV 94.3 fL 80.0-100.0 MCH 30.8 pg 27.0-33.0 MCHC 32.7 g/dL 32.0-37.5 PLT 223 150-400 MPV 11.4 fL 9.1-13.0 RDW 13.9 11.5-14.5 Jun 23, 2024 07:52 AM [facility] COMPREHENSIVE METABOLIC PANEL+MG Specimen Type: PLASMA No comment entered. Ordering Provider: JEVON ZAZUETA Report Released Date/Time: Jun 22, 2024 05:51 PM Reporting Lab: [facility] [address] Performing Lab: [facility] [address] CREATININE 0.7 mg/dL 0.7-1.2 UREA NITROGEN 16 [...] >90 >60 Jun 23, 2024 07:52 AM [facility] CBC & DIFF Specimen Type: BLOOD Comment: Automated Differential Performed Ordering Provider: JEVON ZAZUETA Report Released Date/Time: Jun 22, 2024 05:51 PM Reporting Lab: [facility] [address] Performing Lab: [facility] [address] WBC 14.9 H 4.0-11.0 RBC 5.09 4.60-6.20 [...] 0.1 0.0-0.1 Jun 22, 2024 06:10 PM [facility] CBC Specimen Type: BLOOD No comment entered. Ordering Provider: JEVON ZAZUETA Report Released Date/Time: Jun 22, 2024 05:51 PM Reporting Lab: [facility] [address] Performing Lab: [facility] [address] WBC 16.9 H 4.0-11.0 RBC 5.28 4.60-6.20 HGB 16.9 g/dL 13.5-17.9 HCT 50.4 41.0-54.0 MCV 95.5 fL 80.0-100.0 MCH 32.0 pg 27.0-33.0 MCHC 33.5 g/dL 32.0-37.5 PLT 223 150-400 MPV 10.9 fL 9.1-13.0 RDW 14.0 11.5-14.5 Jun 22, 2024 06:10 PM [facility] COMPREHENSIVE METABOLIC PANEL+MG Specimen Type: PLASMA No comment entered. Ordering Provider: JEVON ZAZUETA Report Released Date/Time: Jun 22, 2024 05:51 PM Reporting Lab: [facility] [address] Performing Lab: [facility] [address] CREATININE 0.7 mg/dL 0.7-1.2 UREA NITROGEN 17 [...] >90 >60 Jun 21, 2024 06:48 PM [facility] URINALYSIS Specimen Type: URINE No comment entered. Ordering Provider: DELIA MARTINEZ Report Released Date/Time: Jun 21, 2024 05:45 PM Reporting Lab: [facility] [address] Performing Lab: [facility] [address] URINE COLOR YELLOW SPECIFIC GRAVITY 1.041 H [...] 500 NEGATIVE Jun 21, 2024 05:34 PM [facility] POC CREATININE Specimen Type: BLOOD No comment entered. Ordering Provider: DELIA MARTINEZ Report Released Date/Time: Jun 21, 2024 06:07 PM Reporting Lab: [facility] [address] Performing Lab: [facility] [address] POC CREATININE 1.1 mg/dL 0.6-1.3 Jun 21, 2024 05:30 PM [facility] POC ABG/LACTATE Specimen Type: VENOUS BLOOD No comment entered. Ordering Provider: DELIA MARTINEZ Report Released Date/Time: Jun 21, 2024 06:07 PM Reporting Lab: [facility] [address] Performing Lab: [facility] [address] POC PH 7.470 H 7.31-7.41 POC PCO2 31.2 mm[Hg] L 41.00-51 .0 0 POC PO2 46 mm[Hg] H 35.0-40.0 POC TCO2 24 mmol/L 24.0-29.0 POC HCO3 22.7 mmol/L L 23.0-28.0 POC BE ECT -1 mmol/L POC SO2 85 H 70-75 POC LACTATE 1.85 mmol/L 0.90-1.70 Jun 21, 2024 05:24 PM [facility] PROTHROMBIN TIME/INR Specimen Type: PLASMA No comment entered. Ordering Provider: DELIA MARTINEZ Report Released Date/Time: Jun 21, 2024 05:30 PM Reporting Lab: [facility] [address] Performing Lab: [facility] [address] .INR 1.2 H 0.8-1.1 .PT 13.9 s H 9.4-12.5 Jun 21, 2024 05:24 PM [facility] LIPASE Specimen Type: PLASMA No comment entered. Ordering Provider: DELIA MARTINEZ Report Released Date/Time: Jun 21, 2024 05:30 PM Reporting Lab: [facility] [address] Performing Lab: [facility] [address] LIPASE 32 U/L <60 Jun 21, 2024 05:24 PM [facility] EXTRA GOLD GEL TUBE Specimen Type: SERUM No comment entered. Ordering Provider: DELIA MARTINEZ Report Released Date/Time: Jun 21, 2024 05:41 PM Reporting Lab: [facility] [address] Performing Lab: [facility] [address] EXTRA GOLD GEL TUBE RECEIVED Jun 21, 2024 05:24 PM [facility] COMPREHENSIVE METABOLIC PANEL+MG Specimen Type: PLASMA No comment entered. Ordering Provider: DELIA MARTINEZ Report Released Date/Time: Jun 21, 2024 05:30 PM Reporting Lab: [facility] [address] Performing Lab: [facility] [address] CREATININE 0.9 mg/dL 0.7-1.2 UREA NITROGEN 29 [...] mg/dL <0.5 Jun 21, 2024 05:24 PM [facility] CBC & DIFF Specimen Type: BLOOD Comment: Manual Differential Performed Ordering Provider: DELIA MARTINEZ Report Released Date/Time: Jun 21, 2024 05:30 PM Reporting Lab: [facility] [id number] Performing Lab: [facility] [id number] WBC 21.3 H 4.0-11.0 RBC 5.48 4.60-6.20 [...] MORPHOLOGY PRESENT Jun 08, 2024 10:59 AM [facility] PROTHROMBIN TIME/INR Specimen Type: PLASMA No comment entered. Ordering Provider: MARYBETH POWELL Report Released Date/Time: May 28, 2024 09:02 AM Reporting Lab: [facility] [id number] Performing Lab: [facility] [address] .INR 1.0 0.8-1.1 .PT 11.8 s 9.4-12.5 Jun 08, 2024 10:59 AM [facility] HEMOGLOBIN A1C Specimen Type: BLOOD Comment: [...] May 28, 2024 09:02 AM Reporting Lab: [facility] [id number] Performing Lab: [facility] [id number] HEMOGLOBIN A1C 4.9 4.0-6.0 Jun 08, 2024 10:59 AM [facility] CBC Specimen Type: BLOOD No comment entered. Ordering Provider: MARYBETH POWELL Report Released Date/Time: May 28, 2024 09:02 AM Reporting Lab: [facility] [id number] Performing Lab: [facility] [address] WBC 16.1 H 4.0-11.0 RBC 5.02 4.60-6.20 HGB 16.0 g/dL 13.5-17.9 HCT 47.1 41.0-54.0 MCV 93.8 fL 80.0-100.0 MCH 31.9 pg 27.0-33.0 MCHC 34.0 g/dL 32.0-37.5 PLT 228 150-400 MPV 10.3 fL 9.1-13.0 RDW 14.6 H 11.5-14.5 Jun 08, 2024 10:59 AM [facility] BASIC METABOLIC PANEL+MG Specimen Type: PLASMA No comment entered. Ordering Provider: MARYBETH POWELL Report Released Date/Time: May 28, 2024 09:02 AM Reporting Lab: [facility] [id number] Performing Lab: [facility] [phone] CREATININE 0.9 mg/dL 0.7-1.2 UREA NITROGEN 15 [...] PM 97.5 92 132/[address] [facility] Jul 06, 2024 01:[address] [facility] Jul 06, 2024 12:18 PM 136/88 [facility] Jul 06, 2024 12:[address] [facility] Jul 06, 2024 09:11 AM 97 93 162/[address] [facility] Social History: Smoking Status (Most current) [...] 15, 2024 08:30 AM VA-TOBACCO FORMER USER [facility] Tobacco Use History This section includes a history of the smoking, or tobacco-related health factors, that were collected on or before the date of the Encounter. The data comes from the [place] facility where the Encounter took place. Date/Time Smoking Status/Tobacco Use Comment F [facility]abas May 15, 2024 08:30 AM VA-TOBACCO QUIT 15 YRS OR MORE [facility] May 06, 2023 11:30 AM VA-TOBACCO FORMER USER [facility] May 06, 2023 11:30 AM VA-TOBACCO QUIT 15 YRS OR MORE [facility] Jun 04, 2022 09:00 AM VA-TOBACCO FORMER USER [facility] Jun 04, 2022 09:00 AM VA-TOBACCO QUIT 15 YRS OR MORE [facility] Jul 10, 2021 08:00 AM VA-TOBACCO FORMER USER [facility] Jul 10, 2021 08:00 AM VA-TOBACCO QUIT 5 TO < 15 YRS [facility] May 23, 2020 08:30 AM VA-TOBACCO FORMER USER [facility] May 23, 2020 08:30 AM VA-TOBACCO QUIT 5 TO < 15 YRS [facility] Mar 20, 2019 04:03 PM VA-TOBACCO FORMER USER [facility] Mar 20, 2019 04:03 PM VA-TOBACCO QUIT 5 TO < 15 YRS [facility] Mar 21, 2018 08:13 AM FORMER TOBACCO USER 7Y OR GREATE R [facility] Feb 24, 2017 09:24 AM FORMER TOBACCO USER 7Y OR GREATE R [facility] January 07, 2016 08:01 AM FORMER TOBACCO USE >1Y <7Y [facility] Feb 03, 2015 07:58 AM FORMER TOBACCO USE <1Y [facility] Feb 26, 2014 08:41 AM CURRENT TOBACCO USER [facility] May 13, 2011 01:45 PM CURRENT TOBACCO USER [facility] Advance Directives: All historical and current [...] Mar 23, 2016 CLINICAL [place]ING [place] [facility] Radiology Reports: +/- 30 [...] CHEST 2 VIEWS PA A ND LAT: MEGFLACA YAMIL [id number] -[id number] M Exm Date: JUL 08, 2024@10:09 Req Phys: KATELYNN PERSON Pat Loc: 07-08-2024@11:49 Img Loc: MAIN X-RAY Service: [place] [address] (Case 24 COMPLETE) CHEST 2 VIEWS PA AND LAT (RAD Detailed) CPT:82038 Reason for Study: Uptrending WBC, POD 5 Clinical History: IS NOT under investigation for COVID-19 or is COVID-19 negative POD 5, work up for uptrending wbc Responsible provider name and phone number to notify for critical findings if other than user placing the order and pager listed below: User placing orders pager: Katelynn ePrson LAST CREATININE 0.9 (07/07/24) Report Status: Verified Date Reported: JUL 08, 2024 Date Verified: JUL 08, 2024 Graphics Coordinator E-Sig: Report: CHEST 2 VIEWS PA AND [...] cardiopulmonary disease. READING PHYSICIAN: Sarbjit Vaughn M.D. -[phone] 07/08/2024 12:46 [facility] National Teleradiology Program [phone] (For Medical Practitioner Use Only) Attention Patients / Veterans: If you have questions or concerns about these test results, please contact your ordering provider or primary care team. Primary Interpreting Staff: RADIOLOGY,OUTSIDE SERVICE, Staff Physician / RADIOLOGY,OUTSIDE SERVICE [facility] Jul 08, 2024 10:[address] (AP) ABDOMEN/PE LVIS W CONTRAST: FLACA WEAVER [id number] -1950 M Exm Date: JUL 08, 2024@10:00 Req Phys: KATELYNN PERSON Pat Loc: 07-08-2024@12:07 Img Loc: CT IMAGING Service: [place] [address] (Case [id number] COMPLETE) CT (AP) ABDOMEN/PELVIS W CONTRAST(CT Detailed) CPT:53008 Contrast Media : Non-ionic Iodinated Reason for [...] PLASMA .CREAT EGFR(CKD-E >90 Ref: >=60 Allergies: ([place] only) TERAZOSIN (Mar 13, 2015) Report Status: Verified Date Reported: JUL 08, 2024 Date Verified: JUL 08, 2024 Graphics Coordinator E-Sig: Report: CT (AP) ABDOMEN/PELVIS W CONTRAST [...] as noted above READING PHYSICIAN: Celestino Blanc -[phone] 07/08/2024 13:04 [facility] [employer]radiology Program [phone] (For Medical Practitioner Use Only) Attention Patients / Veterans: If you have questions or concerns about these test results, please contact your ordering provider or primary care team. Primary Interpreting Staff: RADIOLOGY,OUTSIDE SERVICE, Staff Physician / RADIOLOGY,OUTSIDE SERVICE [facility] Jun 22, 2024 11:49 AM ABSCESS DRAIN PLAC EMENT PERITONEAL (P): FLACA WEAVER [id number] -1950 M Exm Date: JUN 22, 2024@11:49 Req Phys: ANGELA HOLDEN Loc: [facility]06-22-2024@17:14 Img Loc: INTERVENTIONAL RADIOLOGY Service: [place] [address] (Case [id number] COMPLETE) IR PERITONEAL/RETROPERITONEAL PER(ANI Detailed) CPT:93466 Reason for Study: diverticulitis with abscess (Case [id number] COMPLETE) IR MOD SEDATION 06-19 MIN (ANI Detailed) CPT:33993 Clinical History: Shushan IS NOT under investigation for COVID-19 or is COVID-19 negative 73 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 please place abscess drain. Contact number for responsible provider who can be reached for any questions or notifications of critical findings: [phone] n/a LAST CREATININE 0.9 (06/21/24) Report Status: Verified Date Reported: JUN 22, 2024 Date Verified: JUN 22, 2024 Graphics Coordinator E-Sig:/ES/LISA PENDLETON MD Report: PROCEDURES: Placement of [...] obtained. A pre-procedural Time-Out was performed per [facility] policy. The patient was placed in the supine position on the CT table. Preprocedural scan performed. The suprapubic region/lower abdominal wall was sterilely prepped and draped in the usual fashion.1% lidocaine without epinephrine was used for local anesthesia. Using real-time CT fluoroscopy, a 5 [place] Readyesis catheter was advanced into the collection in the left pelvis. A wire was coiled in the collection. The tract into the collection was dilated to accommodate the 12 [place]an locking pigtail drainage catheter. There was return [...] Primary Interpreting Staff: LISA PENDLETON MD, RADIOLOGIST (Graphics Coordinator) /JRLISA [facility] Jun 22, 2024 11:[address] NEEDLE PLACEMEN T (P): FLACA WEAVER [id number] -1950 M Exm Date: JUN 22, 2024@11:48 Req Phys: ANGELA HOLDEN Loc: 2KC06-22-2024@17:14 Img Loc: CT IMAGING Service: [place] [address] (Case [id number] COMPLETE) CT SCAN FOR NEEDLE PLACEMENT (CT Detailed) CPT:39608 Reason for Study: l pelvic abscess drain Clinical History: Report Status: Verified Date Reported: JUN 22, 2024 Date Verified: JUN 22, 2024 Graphics Coordinator E-Sig:/ES/LISA PENDLETON MD Report: PROCEDURES: Placement of [...] obtained. A pre-procedural Time-Out was performed per [facility] policy. The patient was placed in the supine position on the CT table. Preprocedural scan performed. The suprapubic region/lower abdominal wall was sterilely prepped and draped in the usual fashion.1% lidocaine without epinephrine was used for local anesthesia. Using real-time CT fluoroscopy, a 5 [place] Readyesis catheter was advanced into the collection in the left pelvis. A wire was coiled in the collection. The tract into the collection was dilated to accommodate the 12 [place] locking pigtail drainage catheter. There was return [...] Primary Interpreting Staff: LISA PENDLETON MD, RADIOLOGIST (Graphics Coordinator) /JRT LISA PENDLETON [facility] Jun 21, 2024 06:[address] (AP) ABDOMEN/PE LVIS (P): FLACA WEAVER [id number] -1950 M Exm Date: JUN 21, 2024@18:09 Req Phys: DELIA MARTINEZ Pat Loc: [facility] EMERGENCY DEPT WALK-IN (Re Img Loc: CT IMAGING Service: [place] [address] (Case [id number] COMPLETE) CT (AP) ABDOMEN/PELVIS W CONTRAST(CT Detailed) CPT:40782 Contrast Media : Non-ionic Iodinated Reason for [...] PLASMA .CREAT EGFR(CKD-E >90 Ref: >=60 Allergies: ([place] only) TERAZOSIN (Mar 13, 2015) Defer to [...] 21, 2024 Date Verified: JUN 21, 2024 Graphics Coordinator E-Sig:/ALEXI/CARLOS A CUNNINGHAM DO Report: EXAMINATION: CT [...] Interpreting Staff: CARLOS A CUNNINGHAM DO, RADIOLOGIST (Graphics Coordinator) /CARLOS A ROWELL [facility] Pathology Reports: +/- 30 days of [...] COSIGNER: URGENCY: STATUS: COMPLETED $APHDR Reporting Lab: [facility] [CLIA# [id number]] [place] [address] - - - - - - - [...] - PATHOLOGY REPORT Accession No. [id number] - - - - - - - [...] - PATHOLOGY REPORT Accession No. [id number] - - - - - - - [...] Second circumferential surgical margin, en face; E-F: Industrial Editor diverticula; G: Industrial Editor section of mesentery; H: Random public utilities sales representative section of additional adipose tissue [...] Performing Laboratory: Surgical Pathology Report Performed By: [facility] [CLIA# [id number]] [place] [address] $FTR - - - - - - [...] - - FLACA WEAVER STANDARD FORM 515 ID:[id number] SEX:M :1950 AGE: 73 LOC:35172 ADM:Jun DX:DIVERTICULITIS PCP: Jatinder Cabrera /alexi/ EDUARDO PALOMARES MD STAFF PATHOLOGIST Signed: 07/06/2024 10:40 EDUARDO PALOMARES [facility] Jun 22, 2024 01:15 PM LR MICROBIOLOGY RE PORT: Reporting Lab: [facility] [CLIA# [id number]] [place] [address] Accession [UID]: [id number] [[id number]] Received: Jun 22, 2024@13:38 Collection sample: FLUID Collection date: Jun 22, 2024 13:15 Provider: ANGELA HOLDEN Comment on specimen: LLQ ABSCESS, RECEIVED IN ANAEROBIC TRANSPORT VIAL Test(s) ordered: GRAM STAIN.................... completed: Jun 22, 2024 15:03 CULTURE & SUSCEPTIBILITY...... completed: Jun 25, 2024 * BACTERIOLOGY FINAL REPORT => Jun 25, 2024 10:56 TECH CODE: [id number] GRAM STAIN: DIRECT SMEAR of specimen before [...] -=--=--=--=--=--=--=-- Performing Laboratory: Bacteriology Report Performed By: [facility] [CLIA# [id number]] [place] [address] [facility] Jun 22, 2024 01:15 PM LR MICROBIOLOGY RE PORT: Reporting Lab: [facility] [CLIA# [id number]] [place] [address] Accession [UID]: [id number] [[id number]] Received: Jun 22, 2024@13:38 Collection sample: FLUID Collection date: Jun 22, 2024 13:15 Provider: ANGELA HOLDEN Comment on specimen: LLQ ABSCESS, RECEIVED IN ANAEROBIC TRANSPORT VIAL Test(s) ordered: ANAEROBIC CULTURE............. completed: Jun 28, 2024 * BACTERIOLOGY FINAL REPORT => Jun 28, 2024 10:08 TECH CODE: [id number] CULTURE RESULTS: HEAVY GROWTH MIXED ANAEROBES Comment: including the followin+ Bacteroides fragilis 4+ Bacteroides vulgatus 4+ Clostridium innocuum Beta-lactamase negative 4+ Bacteroides caccae 4+ Parvimonas micra 4+ Bacteroides uniformis 4+ Gemella morbillorum 4+ anaerobic small, Gram Positive Rods 4+ Bacteroides thetaiotaomicron Standard workup is now complete. Bacteriology Remark(s): THIS REPORT IS FINAL =--=--=--=--=--=--=--=--=--= --=--=--=--=--=--=--=--=--=- -=--=--=--=--=--=--=-- Performing Laboratory: Bacteriology Report Performed By: [facility] [CLIA# [id number]] [place] [address] [facility] Jun 21, 2024 06:12 PM LR MICROBIOLOGY RE PORT: Reporting Lab: [facility] [CLIA# [id number]] [place] [address] Accession [UID]: [id number] [[id number]] Received: Jun 21, 2024@18:12 Collection sample: BLOOD [...] -=--=--=--=--=--=--=-- Performing Laboratory: Bacteriology Report Performed By: [facility] [CLIA# [id number]] [place] [address] [facility] Jun 21, 2024 06:11 PM LR MICROBIOLOGY RE PORT: Reporting Lab: [facility] [CLIA# [id number]] [place] [address] Accession [UID]: [id number] [[id number]] Received: Jun 21, 2024@18:11 Collection sample: BLOOD [...] -=--=--=--=--=--=--=-- Performing Laboratory: Bacteriology Report Performed By: [facility] [CLIA# [id number]] [place] [address] [facility] Jun 08, 2024 11:00 AM LR MICROBIOLOGY RE PORT: Reporting Lab: [facility] [CLIA# [id number]] [place] [address] Accession [UID]: [id number] [[id number]] Received: Jun 08, 2024@11:00 Collection sample: URINE Collection date: Jun 08, 2024 11:00 Provider: MARYBETH POWELL Comment on specimen: urine Test(s) ordered: CULTURE & SUSCEPTIBILITY...... completed: Jun 09, 2024 * BACTERIOLOGY FINAL REPORT => Jun 09, 2024 19:12 TECH CODE: [id number] CULTURE RESULTS: ESCHERICHIA COLI - Quantity: >100,000 [...] -=--=--=--=--=--=--=-- Performing Laboratory: Bacteriology Report Performed By: [facility] [CLIA# [id number]] [place] [address] [facility] Encounter Notes: All associated encounter notes This section contains the clinical notes associated to the Encounter. Date/Time Encounter Note(s) Provider Source Jul 06, 2024 01:00 AM CRITICAL CARE UNIT NOTE: LOCAL TITLE: ICCA INPATIENT FLOWSHEET STANDARD TITLE: CRITICAL CARE UNIT NOTE DATE OF NOTE: JUL 06, 2024@01:00 ENTRY DATE: JUL 07, 2024@14:36:14 AUTHOR: SYSTEM,Kast EXP COSIGNER: URGENCY: STATUS: COMPLETED This is a place aranda only. Please see Vine to view document. /es/ [employer] SYSTEM ICU DOCUMENT IMPORT Signed: 07/07/2024 14:36 SYSTEM,Kast [facility] Jul 06, 2024 01:00 AM CRITICAL CARE UNIT NOTE: LOCAL TITLE: ICCA RESPIRATORY THERAPY FLOWSHEET STANDARD TITLE: CRITICAL CARE UNIT NOTE DATE OF NOTE: JUL 06, 2024@01:00 ENTRY DATE: JUL 07, 2024@15:05:35 AUTHOR: SYSTEM,Kast EXP COSIGNER: URGENCY: STATUS: COMPLETED This is a place aranda only. Please see Vine to view document. /es/ [employer] SYSTEM ICU DOCUMENT IMPORT Signed: 07/07/2024 15:05 SYSTEM6fusion [facility]
[2024-07-16 07:20] LABS: Troponin I* 0.03 ng/mL (0.01-0.04)
--- OUTSIDE RECORDS SUMMARY | 2024-07-16 07:20 | XMS_ITS ---
[place] DAILY HOSPITALIZATION DATA [facility] Encounter Summary Created on: July 16, 2024 MEG FLACADARCI LOBO : 1950 Sex: Male Author Name [facility] [place] [facility] [place] Address [address] [place] [address] Care Team Providers Care Records Technician Name Role Phone JATINDER CABRERA Primary Care [...] PART A Sep 29, 2016 PART A [id number] [phone] JUDY WEAVER PATIENT Selected Encounter This section includes the information on record at [place] for the Encounter. Date/Time Encounter Type Encounter Description Reason Pro vider Source Jul 08, 2024 07:18 PM Inpatient Visit DAILY HOSPITALIZATION DATA [facility] [...] 2024 08:15 AM AMBULATORY - NONE [facility] Active, Pending, and Scheduled [...] TYPE & SCREEN - LAB BLOOD SP [facility] Jun 08, 2024 09:57 AM Laboratory - Chemi stry Order URINALYSIS URINE WC ONCE [facility] Jun 12, 2024 12:00 AM Laboratory - Chemi stry Order BNP PLASMA SP ONCE [facility] Jun 21, 2024 05:45 PM Laboratory - Blood Bank Order TYPE & SCREEN - LAB BLOOD WC [facility] Jul 03, 2024 12:00 AM Laboratory - Blood Bank Order TYPE & SCREEN - LAB BLOOD [facility] Jul 16, 2024 12:00 AM Laboratory - Chemi stry Order CBC BLOOD SP ONCE [facility] Jul 17, 2024 12:00 AM Laboratory - Chemi stry Order BASIC METABOLIC PANEL+MG PLASMA SP ONCE [facility] Lab Results: +/- 30 days [...] Range Comment Jul 10, 2024 07:16 AM [facility] PHOSPHORUS Specimen Type: PLASMA No comment entered. Ordering Provider: JUANCARLOS ECHOLS S Report Released Date/Time: Jul 09, 2024 12:23 PM Reporting Lab: [facility] [address] Performing Lab: [facility] [address] PHOSPHORUS 3.0 mg/dL 2.3-4.3 Jul 10, 2024 07:16 AM [facility] BASIC METABOLIC PANEL+MG Specimen Type: PLASMA No comment entered. Ordering Provider: JUANCARLOS ECHOLS S Report Released Date/Time: Jul 09, 2024 12:23 PM Reporting Lab: [facility] [address] Performing Lab: [facility] [address] CREATININE 0.7 mg/dL 0.7-1.2 UREA NITROGEN 27 mg/dL H 8-26 GLUCOSE 104 mg/dL H 70-100 SODIUM 133 mmol/L L 136-145 POTASSIUM 4.3 mmol/L 3.5-5.1 CHLORIDE 102 mmol/L 98-107 CO2 19 mmol/L L 22-29 CALCIUM 10.1 mg/dL 8.4-10.2 MAGNESIUM 1.9 mg/dL 1.6-2.6 ANION GAP 12 mmol/L 5-15 .CREAT EGFR(CKD-EPI) >90 >60 Jul 10, 2024 07:15 AM [facility] CBC Specimen Type: BLOOD No comment entered. Ordering Provider: JUANCARLOS ECHOLS Report Released Date/Time: Jul 09, 2024 12:23 PM Reporting Lab: [facility] [address] Performing Lab: [facility] [address] WBC 18.8 H 4.0-11.0 RBC 5.08 4.60-6.20 HGB 15.9 g/dL 13.5-17.9 HCT 46.8 41.0-54.0 MCV 92.1 fL 80.0-100.0 MCH 31.3 pg 27.0-33.0 MCHC 34.0 g/dL 32.0-37.5 PLT 479 H 150-400 MPV 10.2 fL 9.1-13.0 RDW 13.7 11.5-14.5 Jul 09, 2024 07:08 AM [facility] CBC Specimen Type: BLOOD No comment entered. Ordering Provider: QUYNH WEISS Report Released Date/Time: Jul 08, 2024 06:18 PM Reporting Lab: [facility] [address] Performing Lab: [facility] [address] WBC 15.3 H 4.0-11.0 RBC 4.91 4.60-6.20 HGB 15.1 g/dL 13.5-17.9 HCT 45.7 41.0-54.0 MCV 93.1 fL 80.0-100.0 MCH 30.8 pg 27.0-33.0 MCHC 33.0 g/dL 32.0-37.5 PLT 443 H 150-400 MPV 10.0 fL 9.1-13.0 RDW 13.5 11.5-14.5 Jul 08, 2024 10:50 AM [facility] URINALYSIS Specimen Type: URINE No comment entered. Ordering Provider: KATELYNN PERSON Report Released Date/Time: Jul 08, 2024 08:41 AM Reporting Lab: [facility] [address] Performing Lab: [facility] [address] URINE COLOR YELLOW SPECIFIC GRAVITY >1.050 H [...] NEGATIVE NEGATIVE Jul 08, 2024 09:54 AM [facility] CBC Specimen Type: BLOOD Comment: Specimen received in Lab at: 0952 Ordering Provider: JUANCARLOS ECHOLS Report Released Date/Time: Jul 07, 2024 04:49 PM Reporting Lab: [facility] [address] Performing Lab: [facility] [address] WBC 17.5 H 4.0-11.0 RBC 4.88 4.60-6.20 HGB 14.9 g/dL 13.5-17.9 HCT 45.7 41.0-54.0 MCV 93.6 fL 80.0-100.0 MCH 30.5 pg 27.0-33.0 MCHC 32.6 g/dL 32.0-37.5 PLT 472 H 150-400 MPV 10.2 fL 9.1-13.0 RDW 13.7 11.5-14.5 Jul 08, 2024 09:54 AM [facility] PHOSPHORUS Specimen Type: PLASMA Comment: Specimen received in Lab at: 0952 Ordering Provider: BALAJADIA,MAR IA S Report Released Date/Time: Jul 07, 2024 04:49 PM Reporting Lab: [facility] [address] Performing Lab: [facility] [address] PHOSPHORUS 2.6 mg/dL 2.3-4.3 Jul 08, 2024 09:54 AM [facility] BASIC METABOLIC PANEL+MG Specimen Type: PLASMA Comment: Specimen received in Lab at: 0952 Ordering Provider: JUANCARLOS ECHOLS S Report Released Date/Time: Jul 07, 2024 04:49 PM Reporting Lab: [facility] [address] Performing Lab: [facility] [address] CREATININE 0.9 mg/dL 0.7-1.2 UREA NITROGEN 26 mg/dL 8-26 GLUCOSE 128 mg/dL H 70-100 SODIUM 134 mmol/L L 136-145 POTASSIUM 3.4 mmol/L L 3.5-5.1 CHLORIDE 100 mmol/L 98-107 CO2 24 mmol/L 22-29 CALCIUM 9.8 mg/dL 8.4-10.2 MAGNESIUM 1.8 mg/dL 1.6-2.6 ANION GAP 10 mmol/L 5-15 .CREAT EGFR(CKD-EPI) >90 >60 Jul 07, 2024 02:00 PM [facility] C DIFF PANEL Specimen Type: FECES No comment entered. Ordering Provider: JEVON ZAZUETA Report Released Date/Time: Jul 07, 2024 12:26 PM Reporting Lab: [facility] [address] Performing Lab: [facility] [address] C DIFF TOX B GENE PCR NEGATIVE Negative Jul 07, 2024 07:41 AM [facility] PHOSPHORUS Specimen Type: PLASMA No comment entered. Ordering Provider: JEVON ZAZUETA Report Released Date/Time: Jul 06, 2024 03:44 PM Reporting Lab: [facility] [address] Performing Lab: [facility] [address] PHOSPHORUS 3.1 mg/dL 2.3-4.3 Jul 07, 2024 07:41 AM [facility] BASIC METABOLIC PANEL+MG Specimen Type: PLASMA No comment entered. Ordering Provider: JEVON ZAZUETA Report Released Date/Time: Jul 06, 2024 03:44 PM Reporting Lab: [facility] [address] Performing Lab: [facility] [address] CREATININE 0.9 mg/dL 0.7-1.2 UREA NITROGEN 20 mg/dL 8-26 GLUCOSE 157 mg/dL H 70-100 SODIUM 136 mmol/L 136-145 POTASSIUM 3.7 mmol/L 3.5-5.1 CHLORIDE 102 mmol/L 98-107 CO2 21 mmol/L L 22-29 CALCIUM 9.8 mg/dL 8.4-10.2 MAGNESIUM 1.9 mg/dL 1.6-2.6 ANION GAP 13 mmol/L 5-15 .CREAT EGFR(CKD-EPI) >90 >60 Jul 07, 2024 07:40 AM [facility] CBC Specimen Type: BLOOD No comment entered. Ordering Provider: JEVON ZAZUETA Report Released Date/Time: Jul 06, 2024 03:44 PM Reporting Lab: [facility] [address] Performing Lab: [facility] [address] WBC 21.2 H 4.0-11.0 RBC 5.09 4.60-6.20 HGB 15.9 g/dL 13.5-17.9 HCT 48.3 41.0-54.0 MCV 94.9 fL 80.0-100.0 MCH 31.2 pg 27.0-33.0 MCHC 32.9 g/dL 32.0-37.5 PLT 500 H 150-400 MPV 10.3 fL 9.1-13.0 RDW 13.6 11.5-14.5 Jul 06, 2024 07:21 AM [facility] CBC Specimen Type: BLOOD No comment entered. Ordering Provider: JEVON ZAZUETA Report Released Date/Time: Jul 05, 2024 01:22 PM Reporting Lab: [facility] [address] Performing Lab: [facility] [address] WBC 18.0 H 4.0-11.0 RBC 4.83 4.60-6.20 HGB 14.6 g/dL 13.5-17.9 HCT 45.5 41.0-54.0 MCV 94.2 fL 80.0-100.0 MCH 30.2 pg 27.0-33.0 MCHC 32.1 g/dL 32.0-37.5 PLT 368 150-400 MPV 10.4 fL 9.1-13.0 RDW 13.6 11.5-14.5 Jul 06, 2024 07:21 AM [facility] PHOSPHORUS Specimen Type: PLASMA No comment entered. Ordering Provider: JEVON ZAZUETA Report Released Date/Time: Jul 05, 2024 01:22 PM Reporting Lab: [facility] [address] Performing Lab: [facility] [address] PHOSPHORUS 3.6 mg/dL 2.3-4.3 Jul 06, 2024 07:21 AM [facility] BASIC METABOLIC PANEL+MG Specimen Type: PLASMA No comment entered. Ordering Provider: JEVON ZAZUETA Report Released Date/Time: Jul 05, 2024 01:22 PM Reporting Lab: [facility] [address] Performing Lab: [facility] [address] CREATININE 0.7 mg/dL 0.7-1.2 UREA NITROGEN 12 mg/dL 8-26 GLUCOSE 108 mg/dL H 70-100 SODIUM 138 mmol/L 136-145 POTASSIUM 3.4 mmol/L L 3.5-5.1 CHLORIDE 104 mmol/L 98-107 CO2 20 mmol/L L 22-29 CALCIUM 9.3 mg/dL 8.4-10.2 MAGNESIUM 1.9 mg/dL 1.6-2.6 ANION GAP 14 mmol/L 5-15 .CREAT EGFR(CKD-EPI) >90 >60 Jul 05, 2024 07:17 AM [facility] MAGNESIUM Specimen Type: PLASMA No comment entered. Ordering Provider: JUANCARLOS ECHOLS S Report Released Date/Time: Jul 04, 2024 09:39 AM Reporting Lab: [facility] [address] Performing Lab: [facility] [address] MAGNESIUM 2.0 mg/dL 1.6-2.6 Jul 05, 2024 07:17 AM [facility] PHOSPHORUS Specimen Type: PLASMA No comment entered. Ordering Provider: JUANCARLOS ECHOLS S Report Released Date/Time: Jul 04, 2024 09:39 AM Reporting Lab: [facility] [address] Performing Lab: [facility] [address] PHOSPHORUS 2.0 mg/dL L 2.3-4.3 Jul 05, 2024 07:17 AM [facility] BASIC METABOLIC PANEL+MG Specimen Type: PLASMA No comment entered. Ordering Provider: JUANCARLOS ECHOLS S Report Released Date/Time: Jul 04, 2024 09:39 AM Reporting Lab: [facility] [address] Performing Lab: [facility] [address] CREATININE 0.7 mg/dL 0.7-1.2 UREA NITROGEN 12 mg/dL 8-26 GLUCOSE 84 mg/dL 70-100 SODIUM 135 mmol/L L 136-145 POTASSIUM 3.8 mmol/L 3.5-5.1 CHLORIDE 104 mmol/L 98-107 CO2 24 mmol/L 22-29 CALCIUM 9.3 mg/dL 8.4-10.2 MAGNESIUM 2.0 mg/dL 1.6-2.6 ANION GAP 7 mmol/L 5-15 .CREAT EGFR(CKD-EPI) >90 >60 Jul 05, 2024 07:16 AM [facility] CBC Specimen Type: BLOOD No comment entered. Ordering Provider: JUANCARLOS ECHOLS S Report Released Date/Time: Jul 04, 2024 09:39 AM Reporting Lab: [facility] [address] Performing Lab: [facility] [address] WBC 18.3 H 4.0-11.0 RBC 4.49 L 4.60-6.20 HGB 14.1 g/dL 13.5-17.9 HCT 43.4 41.0-54.0 MCV 96.7 fL 80.0-100.0 MCH 31.4 pg 27.0-33.0 MCHC 32.5 g/dL 32.0-37.5 PLT 317 150-400 MPV 10.0 fL 9.1-13.0 RDW 13.9 11.5-14.5 Jul 04, 2024 07:17 AM [facility] PHOSPHORUS Specimen Type: PLASMA No comment entered. Ordering Provider: GABINO CAMERON Report Released Date/Time: Jul 03, 2024 06:31 PM Reporting Lab: [facility] [address] Performing Lab: [facility] [address] PHOSPHORUS 2.8 mg/dL 2.3-4.3 Jul 04, 2024 07:17 AM [facility] BASIC METABOLIC PANEL+MG Specimen Type: PLASMA No comment entered. Ordering Provider: GABINO CAMERON Report Released Date/Time: Jul 03, 2024 06:31 PM Reporting Lab: [facility] [address] Performing Lab: [facility] [address] CREATININE 0.7 mg/dL 0.7-1.2 UREA NITROGEN 16 mg/dL 8-26 GLUCOSE 129 mg/dL H 70-100 SODIUM 137 mmol/L 136-145 POTASSIUM 3.7 mmol/L 3.5-5.1 CHLORIDE 107 mmol/L 98-107 CO2 22 mmol/L 22-29 CALCIUM 9.0 mg/dL 8.4-10.2 MAGNESIUM 1.9 mg/dL 1.6-2.6 ANION GAP 8 mmol/L 5-15 .CREAT EGFR(CKD-EPI) >90 >60 Jul 04, 2024 07:16 AM [facility] CBC Specimen Type: BLOOD No comment entered. Ordering Provider: GABINO CAMERON Report Released Date/Time: Jul 03, 2024 06:31 PM Reporting Lab: [facility] [address] Performing Lab: [facility] [address] WBC 20.6 H 4.0-11.0 RBC 4.63 4.60-6.20 HGB 14.2 g/dL 13.5-17.9 HCT 43.4 41.0-54.0 MCV 93.7 fL 80.0-100.0 MCH 30.7 pg 27.0-33.0 MCHC 32.7 g/dL 32.0-37.5 PLT 329 150-400 MPV 10.4 fL 9.1-13.0 RDW 13.8 11.5-14.5 Jul 04, 2024 07:16 AM [facility] CBC & DIFF Specimen Type: BLOOD Comment: Manual Differential Performed Ordering Provider: GABINO CAMERON Report Released Date/Time: Jul 03, 2024 06:31 PM Reporting Lab: [facility] [address] Performing Lab: [facility] [address] WBC 20.6 H 4.0-11.0 RBC 4.63 4.60-6.20 [...] MORPHOLOGY PRESENT Jul 04, 2024 07:15 AM [facility] BNP Specimen Type: PLASMA No comment entered. Ordering Provider: GABINO CAMERON Report Released Date/Time: Jul 03, 2024 06:31 PM Reporting Lab: [facility] [address] Performing Lab: [facility] [address] BNP 292 pg/mL H <99 Jul 03, 2024 10:32 PM [facility] FINGERSTICK GLUCOSE Specimen Type: BLOOD Comment: Save Result Nurse Notified Ordering Provider: KATELYNN PERSON Report Released Date/Time: Jul 03, 2024 10:50 PM Reporting Lab: [facility] [address] Performing Lab: [facility] [address] FINGERSTICK GLUCOSE 126 mg/dL H 70-100 Jul 03, 2024 05:33 PM [facility] FINGERSTICK GLUCOSE Specimen Type: BLOOD Comment: Save Result Nurse Notified Ordering Provider: KATELYNN PERSON Report Released Date/Time: Jul 03, 2024 05:46 PM Reporting Lab: [facility] [address] Performing Lab: [facility] [address] FINGERSTICK GLUCOSE 141 mg/dL H 70-100 Jul 03, 2024 02:31 PM [facility] POC ABG/ELECTROLYTES Specimen Type: ARTERIAL BLOOD Comment: FIO2 = 97% Patient Temp: 36.0 C Sample Type = ARTERIAL Ordering Provider: MAZIN ARREDONDO Report Released Date/Time: Jul 03, 2024 01:48 PM Reporting Lab: [facility] [address] Performing Lab: [facility] [address] POC PH 7.387 7.35-7.45 POC PCO2 34.4 [...] H 80.0-105.0 Jul 03, 2024 01:05 PM [facility] POC ABG/ELECTROLYTES Specimen Type: ARTERIAL BLOOD Comment: FIO2 = 53% Patient Temp: 36.2 C Sample Type = ARTERIAL Ordering Provider: MAZIN ARREDONDO Report Released Date/Time: Jul 03, 2024 01:48 PM Reporting Lab: [facility] [address] Performing Lab: [facility] [address] POC PH 7.280 L 7.35-7.45 POC PCO2 [...] mm[Hg] 80.0-105.0 Jul 03, 2024 06:15 AM [facility] URINALYSIS Specimen Type: URINE No comment entered. Ordering Provider: MARYBETH POWELL Report Released Date/Time: Jun 12, 2024 04:01 PM Reporting Lab: [facility] [address] Performing Lab: [facility] [address] URINE COLOR YELLOW SPECIFIC GRAVITY 1.031 1.003-1.03 [...] 250 NEGATIVE Jul 03, 2024 06:13 AM [facility] CBC Specimen Type: BLOOD No comment entered. Ordering Provider: MARYBETH POWELL Report Released Date/Time: Jun 12, 2024 03:59 PM Reporting Lab: [facility] [address] Performing Lab: [facility] [address] WBC 15.8 H 4.0-11.0 RBC 5.11 4.60-6.20 HGB 16.1 g/dL 13.5-17.9 HCT 49.1 41.0-54.0 MCV 96.1 fL 80.0-100.0 MCH 31.5 pg 27.0-33.0 MCHC 32.8 g/dL 32.0-37.5 PLT 357 150-400 MPV 9.8 fL 9.1-13.0 RDW 13.7 11.5-14.5 Jun 24, 2024 09:50 AM [facility] BASIC METABOLIC PANEL+MG Specimen Type: PLASMA Comment: Specimen received in Lab at: 0948 Ordering Provider: JEVON ZAZUETA Report Released Date/Time: Jun 23, 2024 06:07 PM Reporting Lab: [facility] [address] Performing Lab: [facility] [address] CREATININE 0.8 mg/dL 0.7-1.2 UREA NITROGEN 13 mg/dL 8-26 GLUCOSE 135 mg/dL H 70-100 SODIUM 135 mmol/L L 136-145 POTASSIUM 3.6 mmol/L 3.5-5.1 CHLORIDE 103 mmol/L 98-107 CO2 24 mmol/L 22-29 CALCIUM 9.2 mg/dL 8.4-10.2 MAGNESIUM 1.9 mg/dL 1.6-2.6 ANION GAP 8 mmol/L 5-15 .CREAT EGFR(CKD-EPI) >90 >60 Jun 24, 2024 09:50 AM [facility] CBC Specimen Type: BLOOD Comment: Specimen received in Lab at: 0948 Ordering Provider: JEVON ZAZUETA Report Released Date/Time: Jun 23, 2024 06:07 PM Reporting Lab: [facility] [address] Performing Lab: [facility] [address] WBC 15.5 H 4.0-11.0 RBC 4.93 4.60-6.20 HGB 15.2 g/dL 13.5-17.9 HCT 46.5 41.0-54.0 MCV 94.3 fL 80.0-100.0 MCH 30.8 pg 27.0-33.0 MCHC 32.7 g/dL 32.0-37.5 PLT 223 150-400 MPV 11.4 fL 9.1-13.0 RDW 13.9 11.5-14.5 Jun 23, 2024 07:52 AM [facility] COMPREHENSIVE METABOLIC PANEL+MG Specimen Type: PLASMA No comment entered. Ordering Provider: JEVON ZAZUETA Report Released Date/Time: Jun 22, 2024 05:51 PM Reporting Lab: [facility] [address] Performing Lab: [facility] [address] CREATININE 0.7 mg/dL 0.7-1.2 UREA NITROGEN 16 [...] >90 >60 Jun 23, 2024 07:52 AM [facility] CBC & DIFF Specimen Type: BLOOD Comment: Automated Differential Performed Ordering Provider: JEVON ZAZUETA Report Released Date/Time: Jun 22, 2024 05:51 PM Reporting Lab: [facility] [address] Performing Lab: [facility] [address] WBC 14.9 H 4.0-11.0 RBC 5.09 4.60-6.20 [...] 0.1 0.0-0.1 Jun 22, 2024 06:10 PM [facility] CBC Specimen Type: BLOOD No comment entered. Ordering Provider: JEVON ZAZUETA Report Released Date/Time: Jun 22, 2024 05:51 PM Reporting Lab: [facility] [address] Performing Lab: [facility] [address] WBC 16.9 H 4.0-11.0 RBC 5.28 4.60-6.20 HGB 16.9 g/dL 13.5-17.9 HCT 50.4 41.0-54.0 MCV 95.5 fL 80.0-100.0 MCH 32.0 pg 27.0-33.0 MCHC 33.5 g/dL 32.0-37.5 PLT 223 150-400 MPV 10.9 fL 9.1-13.0 RDW 14.0 11.5-14.5 Jun 22, 2024 06:10 PM [facility] COMPREHENSIVE METABOLIC PANEL+MG Specimen Type: PLASMA No comment entered. Ordering Provider: JEVON ZAZUETA Report Released Date/Time: Jun 22, 2024 05:51 PM Reporting Lab: [facility] [address] Performing Lab: [facility] [address] CREATININE 0.7 mg/dL 0.7-1.2 UREA NITROGEN 17 [...] >90 >60 Jun 21, 2024 06:48 PM [facility] URINALYSIS Specimen Type: URINE No comment entered. Ordering Provider: DELIA MARTINEZ Report Released Date/Time: Jun 21, 2024 05:45 PM Reporting Lab: [facility] [address] Performing Lab: [facility] [address] URINE COLOR YELLOW SPECIFIC GRAVITY 1.041 H [...] 500 NEGATIVE Jun 21, 2024 05:34 PM [facility] POC CREATININE Specimen Type: BLOOD No comment entered. Ordering Provider: DELIA MARTINEZ Report Released Date/Time: Jun 21, 2024 06:07 PM Reporting Lab: [facility] [address] Performing Lab: [facility] [address] POC CREATININE 1.1 mg/dL 0.6-1.3 Jun 21, 2024 05:30 PM [facility] POC ABG/LACTATE Specimen Type: VENOUS BLOOD No comment entered. Ordering Provider: DELIA MARTINEZ Report Released Date/Time: Jun 21, 2024 06:07 PM Reporting Lab: [facility] [address] Performing Lab: [facility] [address] POC PH 7.470 H 7.31-7.41 POC PCO2 31.2 mm[Hg] L 41.00-51 .0 0 POC PO2 46 mm[Hg] H 35.0-40.0 POC TCO2 24 mmol/L 24.0-29.0 POC HCO3 22.7 mmol/L L 23.0-28.0 POC BE ECT -1 mmol/L POC SO2 85 H 70-75 POC LACTATE 1.85 mmol/L 0.90-1.70 Jun 21, 2024 05:24 PM [facility] PROTHROMBIN TIME/INR Specimen Type: PLASMA No comment entered. Ordering Provider: DELIA MARTINEZ Report Released Date/Time: Jun 21, 2024 05:30 PM Reporting Lab: [facility] [address] Performing Lab: [facility] [address] .INR 1.2 H 0.8-1.1 .PT 13.9 s H 9.4-12.5 Jun 21, 2024 05:24 PM [facility] LIPASE Specimen Type: PLASMA No comment entered. Ordering Provider: DELIA MARTINEZ Report Released Date/Time: Jun 21, 2024 05:30 PM Reporting Lab: [facility] [address] Performing Lab: [facility] [address] LIPASE 32 U/L <60 Jun 21, 2024 05:24 PM [facility] EXTRA GOLD GEL TUBE Specimen Type: SERUM No comment entered. Ordering Provider: DELIA MARTINEZ Report Released Date/Time: Jun 21, 2024 05:41 PM Reporting Lab: [facility] [address] Performing Lab: [facility] [address] EXTRA GOLD GEL TUBE RECEIVED Jun 21, 2024 05:24 PM [facility] COMPREHENSIVE METABOLIC PANEL+MG Specimen Type: PLASMA No comment entered. Ordering Provider: DELIA MARTINEZ Report Released Date/Time: Jun 21, 2024 05:30 PM Reporting Lab: [facility] [address] Performing Lab: [facility] [address] CREATININE 0.9 mg/dL 0.7-1.2 UREA NITROGEN 29 [...] mg/dL <0.5 Jun 21, 2024 05:24 PM [facility] CBC & DIFF Specimen Type: BLOOD Comment: Manual Differential Performed Ordering Provider: DELIA MARTINEZ Report Released Date/Time: Jun 21, 2024 05:30 PM Reporting Lab: [facility] [address] Performing Lab: [facility] [address] WBC 21.3 H 4.0-11.0 RBC 5.48 4.60-6.20 [...] PM 97.9 91 134/69 16 92 3 [facility] Jul 08, 2024 05:29 PM 98.2 64 121/67 16 97 3 [facility] Jul 08, 2024 09:25 AM 97.6 70 127/56 18 98 0 [facility] Social History: Smoking Status (Most current) [...] 15, 2024 08:30 AM VA-TOBACCO FORMER USER [facility] Tobacco Use History This section includes a history of the smoking, or tobacco-related health factors, that were collected on or before the date of the Encounter. The data comes from the [place] facility where the Encounter took place. Date/Time Smoking Status/Tobacco Use Comment F acility May 15, 2024 08:30 AM VA-TOBACCO QUIT 15 YRS OR MORE [facility] May 06, 2023 11:30 AM VA-TOBACCO FORMER USER [facility] May 06, 2023 11:30 AM VA-TOBACCO QUIT 15 YRS OR MORE [facility] Jun 04, 2022 09:00 AM VA-TOBACCO FORMER USER [facility] Jun 04, 2022 09:00 AM VA-TOBACCO QUIT 15 YRS OR MORE [facility] Jul 10, 2021 08:00 AM VA-TOBACCO FORMER USER [facility] Jul 10, 2021 08:00 AM VA-TOBACCO QUIT 5 TO < 15 YRS [facility] May 23, 2020 08:30 AM VA-TOBACCO FORMER USER [facility] May 23, 2020 08:30 AM VA-TOBACCO QUIT 5 TO < 15 YRS [facility] Mar 20, 2019 04:03 PM VA-TOBACCO FORMER USER [facility] Mar 20, 2019 04:03 PM VA-TOBACCO QUIT 5 TO < 15 YRS [facility] Mar 21, 2018 08:13 AM FORMER TOBACCO USER 7Y OR GREATE R [facility] Feb 24, 2017 09:24 AM FORMER TOBACCO USER 7Y OR GREATE R [facility] January 07, 2016 08:01 AM FORMER TOBACCO USE >1Y <7Y [facility] Feb 03, 2015 07:58 AM FORMER TOBACCO USE <1Y [facility] Feb 26, 2014 08:41 AM CURRENT TOBACCO USER [facility] May 13, 2011 01:45 PM CURRENT TOBACCO USER [facility] Advance Directives: All historical and [...] 23, [address] 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 READING PHYSICIAN: Sarbjit Vaughn M.D. -[phone] 07/08/2024 12:46 EST [facility] National Teleradiology Program [phone] (For Medical Practitioner Use Only) Attention Patients / Veterans: If you have questions or concerns about these test results, please contact your ordering provider or primary care team. Primary Interpreting Staff: RADIOLOGY,OUTSIDE SERVICE, Staff Physician / RADIOLOGY,OUTSIDE SERVICE [facility] Jul 08, 2024 10:[address] (AP) ABDOMEN/PE LVIS W CONTRAST: MEGFLACADARCI LOBO [id number] -1950 Ex Date: JUL 08, 2024@10:00 Req Phys: KATELYNN PERSON [facility] Loc: 2KG/07-08-2024@12:07 Img Loc: CT IMAGING Service: [place] [address] (Case 22 COMPLETE) CT (AP) ABDOMEN/PELVIS W CONTRAST(CT Detailed) CPT:49902 Contrast Media : Non-ionic Iodinated Reason for [...] PLASMA .CREAT EGFR(CKD-E >90 Ref: >=60 Allergies: ([place] only) TERAZOSIN (Mar 13, 2015) Report Status: Verified Date Reported: JUL 08, 2024 Date Verified: JUL 08, 2024 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 [employer] [facility] Program [phone] (For Medical Practitioner Use Only) Attention Patients / Veterans: If you have questions or concerns about these test results, please contact your ordering provider or primary care team. Primary Interpreting Staff: RADIOLOGY,OUTSIDE SERVICE, Staff Physician / RADIOLOGY,OUTSIDE SERVICE [facility] Jun 22, 2024 11:49 AM ABSCESS DRAIN PLAC EMENT PERITONEAL (P): MEGFLACADARCI LOBO [id number] -1950 M Exm Date: JUN 22, 2024@11:49 Req Phys: ANGELA HOLDEN [facility]/06-22-2024@17:14 Img Loc: INTERVENTIONAL RADIOLOGY Service: [place] [address] (Case [id number] COMPLETE) IR PERITONEAL/RETROPERITONEAL PER(ANI Detailed) CPT:17473 Reason for Study: diverticulitis with abscess (Case [id number] COMPLETE) IR MOD SEDATION 10-22 MIN (ANI Detailed) CPT:49427 Clinical History: IS NOT under investigation for COVID-19 or is COVID-19 negative 73 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 please place abscess drain. Contact number for responsible provider who can be reached for any questions or notifications of critical findings: [phone] n/a LAST CREATININE 0.9 (06/21/24) Report Status: Verified Date Reported: JUN 22, 2024 Date Verified: JUN 22, 2024 Quill Picking Machine Operator E-Sig:/ES/LISA PENDLETON MD Report: PROCEDURES: [...] obtained. A pre-procedural Time-Out was performed per [facility] policy. The patient was placed in the supine position on the CT table. Preprocedural scan performed. The suprapubic region/lower abdominal wall was sterilely prepped and draped in the usual fashion.1% lidocaine without epinephrine was used for local anesthesia. Using real-time CT fluoroscopy, a 5 Afghan GeoMeesis catheter was advanced into the collection in the left pelvis. A wire was coiled in the collection. The tract into the collection was dilated to accommodate the 12 Afghan locking pigtail drainage catheter. There was return [...] Primary Interpreting Staff: LISA PENDLETON MD, RADIOLOGIST (Quill Picking Machine Operator) /JRT LISA PENDLETON [facility] Jun 22, 2024 11:[address] NEEDLE PLACEMEN T (P): FLACA WEAVER [id number] -1950 M Exm Date: JUN 22, 2024@11:48 Req Phys: ANGELA HOLDEN [facility]/06-22-2024@17:14 Im Loc: CT IMAGING Service: [place] [address] (Case [id number] COMPLETE) CT SCAN FOR NEEDLE PLACEMENT (CT Detailed) CPT:53404 Reason for Study: l pelvic abscess drain Clinical History: Report Status: Verified Date Reported: JUN 22, 2024 Date Verified: JUN 22, 2024 Quill Picking Machine Operator E-Sig:/ES/LISA PENDLETON MD Report: PROCEDURES: [...] obtained. A pre-procedural Time-Out was performed per [facility] policy. The patient was placed in the supine position on the CT table. Preprocedural scan performed. The suprapubic region/lower abdominal wall was sterilely prepped and draped in the usual fashion.1% lidocaine without epinephrine was used for local anesthesia. Using real-time CT fluoroscopy, a 5 Afghan GeoMeesis catheter was advanced into the collection in the left pelvis. A wire was coiled in the collection. The tract into the collection was dilated to accommodate the 12 Afghan locking pigtail drainage catheter. There was return [...] Primary Interpreting Staff: LISA PENDLETON MD, RADIOLOGIST (Quill Picking Machine Operator) /JRT LISA PENDLETON [facility] Jun 21, 2024 06:[address] (AP) ABDOMEN/PE LVIS (P): MEGFLACA YAMIL [id number] -1950 Ex Date: JUN 21, 2024@18:09 Req Phys: DELIA MARTINEZ Loc: [facility] EMERGENCY DEPT WALK-IN (Re Img Loc: CT IMAGING Service: [place] [address] (Case [id number] COMPLETE) CT (AP) ABDOMEN/PELVIS W CONTRAST(CT Detailed) CPT:46259 Contrast Media : Non-ionic Iodinated Reason for [...] PLASMA .CREAT EGFR(CKD-E >90 Ref: >=60 Allergies: ([place] only) TERAZOSIN (Mar 13, 2015) Defer to [...] 21, 2024 Date Verified: JUN 21, 2024 Quill Picking Machine Operator E-Sig:/ES/CARLOS A CUNNINGHAM DO Report: EXAMINATION: CT [...] Interpreting Staff: CARLOS A CUNNINGHAM DO, RADIOLOGIST (Quill Picking Machine Operator) /CARLOS A ROWELL [facility] Pathology Reports: +/- 30 days [...] COSIGNER: URGENCY: STATUS: COMPLETED $APHDR Reporting Lab: [facility] [CLIA# [id number]] [place] [address] - - - - - - - [...] - PATHOLOGY REPORT Accession No. [id number] - - - - - - - [...] - PATHOLOGY REPORT Accession No. [id number] - - - - - - - [...] Second circumferential surgical margin, en face; E-F: Digital Computer Systems Analyst diverticula; G: Digital Computer Systems Analyst section of mesentery; H: Random sales solutions representative section of additional adipose tissue fragment. [...] One colonic tissue ring, bisected transversely. [facility]: Microscopic examination performed. DIAGNOSIS: 1. Colon, sigmoid, sigmoidectomy-- - Diverticulosis with perforation and focal abscess formation 2. Colon, anastomotic rings, excision-- - Viable colonic mucosa without diagnostic abnormality /es/ EDUARDO PALOMARES MD STAFF PATHOLOGIST Signed Jul 06, 2024@10:40 Performing Laboratory: Surgical Pathology Report Performed By: [facility] [CLIA# [id number]] [place] [address] $FTR - - - - - - [...] - - FLACA WEAVER STANDARD FORM 515 ID:[id number] SEX:M :1950 AGE: 73 LOC:62454 ADM:Jun DX:DIVERTICULITIS PCP: Jatinder Cabrera /alexi/ EDUARDO PALOMARES MD STAFF PATHOLOGIST Signed: 07/06/2024 10:40 EDUARDO PALOMARES [facility] Jun 22, 2024 01:15 PM LR MICROBIOLOGY RE PORT: Reporting Lab: [facility] [CLIA# [id number]] [place] [address] Accession [UID]: [id number] [[id number]] Received: Jun 22, 2024@13:38 Collection sample: FLUID Collection date: Jun 22, 2024 13:15 Provider: ANGELA HOLDEN Comment on specimen: LLQ ABSCESS, RECEIVED IN ANAEROBIC TRANSPORT VIAL Test(s) ordered: GRAM STAIN.................... completed: Jun 22, 2024 15:03 CULTURE & SUSCEPTIBILITY...... completed: Jun 25, 2024 * BACTERIOLOGY FINAL REPORT => Jun 25, 2024 10:56 TECH CODE: [id number] GRAM STAIN: DIRECT SMEAR of specimen before [...] -=--=--=--=--=--=--=-- Performing Laboratory: Bacteriology Report Performed By: [facility] [CLIA# [id number]] [place] [address] [facility] Jun 22, 2024 01:15 PM LR MICROBIOLOGY RE PORT: Reporting Lab: [facility] [CLIA# [id number]] [place] [address] Accession [UID]: [id number] [[id number]] Received: Jun 22, 2024@13:38 Collection sample: FLUID Collection date: Jun 22, 2024 13:15 Provider: ANGELA HOLDEN Comment on specimen: LLQ ABSCESS, RECEIVED IN ANAEROBIC TRANSPORT VIAL Test(s) ordered: ANAEROBIC CULTURE............. completed: Jun 28, 2024 * BACTERIOLOGY FINAL REPORT => Jun 28, 2024 10:08 TECH CODE: [id number] CULTURE RESULTS: HEAVY GROWTH MIXED ANAEROBES Comment: including the followin+ Bacteroides fragilis 4+ Bacteroides vulgatus 4+ Clostridium innocuum Beta-lactamase negative 4+ Bacteroides caccae 4+ Parvimonas micra 4+ Bacteroides uniformis 4+ Gemella morbillorum 4+ anaerobic small, Gram Positive Rods 4+ Bacteroides thetaiotaomicron Standard workup is now complete. Bacteriology Remark(s): THIS REPORT IS FINAL =--=--=--=--=--=--=--=--=--= --=--=--=--=--=--=--=--=--=- -=--=--=--=--=--=--=-- Performing Laboratory: Bacteriology Report Performed By: [facility] [CLIA# [id number]] [place] [address] [facility] Jun 21, 2024 06:12 PM LR MICROBIOLOGY RE PORT: Reporting Lab: [facility] [CLIA# [id number]] [place] [address] Accession [UID]: [id number] [[id number]] Received: Jun 21, 2024@18:12 Collection sample: BLOOD [...] -=--=--=--=--=--=--=-- Performing Laboratory: Bacteriology Report Performed By: [facility] [CLIA# [id number]] [place] [address] [facility] Jun 21, 2024 06:11 PM LR MICROBIOLOGY RE PORT: Reporting Lab: [facility] [CLIA# [id number]] [place] [address] Accession [UID]: [id number] [[id number]] Received: Jun 21, 2024@18:11 Collection sample: BLOOD [...] -=--=--=--=--=--=--=-- Performing Laboratory: Bacteriology Report Performed By: [facility] [CLIA# [id number]] [place] [address] [facility] Jun 08, 2024 11:00 AM LR MICROBIOLOGY RE PORT: Reporting Lab: [facility] [CLIA# [id number]] [place] [address] Accession [UID]: [id number] [[id number]] Received: Jun 08, 2024@11:00 Collection sample: URINE Collection date: Jun 08, 2024 11:00 Provider: MARYBETH POWELL Comment on specimen: urine Test(s) ordered: CULTURE & SUSCEPTIBILITY...... completed: Jun 09, 2024 * BACTERIOLOGY FINAL REPORT => Jun 09, 2024 19:12 TECH CODE: [id number] CULTURE RESULTS: ESCHERICHIA COLI - Quantity: >100,000 [...] -=--=--=--=--=--=--=-- Performing Laboratory: Bacteriology Report Performed By: [facility] [CLIA# [id number]] [place] [address] [facility]
--- OUTSIDE RECORDS SUMMARY | 2024-07-16 07:20 | XMS_ITS ---
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 Date/Time Encounter Type Encounter Description Reason Pro vider Source Jul 08, 2024 10:24 PM Inpatient Visit DAILY HOSPITALIZATION DATA [facility]GELA PINTO E Encounter Template Text not used by AL [...] 2024 08:15 AM AMBULATORY - NONE [facility] Active, Pending, and Scheduled Orders [...] data comes from all [place] treatment facilities. Test Date/Time Test Type Test Details Facility Name May 28, 2024 12:00 AM Laboratory - Blood Bank Order TYPE & SCREEN - LAB BLOOD SP [facility] Jun 08, 2024 09:57 AM Laboratory - Chemi stry Order URINALYSIS URINE WC ONCE [facility] Jun 12, 2024 12:00 AM Laboratory - Chemi stry Order BNP PLASMA SP ONCE [facility] Jun 21, 2024 05:45 PM Laboratory - Blood Bank Order TYPE & SCREEN - LAB BLOOD WC [facility] Jul 03, 2024 12:00 AM Laboratory - Blood Bank Order TYPE & SCREEN - LAB BLOOD [facility] Jul 16, 2024 12:00 AM Laboratory - Chemi stry Order CBC BLOOD SP ONCE [facility] Jul 17, 2024 12:00 AM Laboratory - Chemi stry Order BASIC METABOLIC PANEL+MG PLASMA SP ONCE [facility] Lab Results: +/- 30 [...] Range Comment Jul 10, 2024 07:16 AM [facility] PHOSPHORUS Specimen Type: PLASMA No comment entered. Ordering Provider: JUANCARLOS ECHOLS S Report Released Date/Time: Jul 09, 2024 12:23 PM Reporting Lab: [facility] [address] Performing Lab: [facility] [address] PHOSPHORUS 3.0 mg/dL 2.3-4.3 Jul 10, 2024 07:16 AM [facility] BASIC METABOLIC PANEL+MG Specimen Type: PLASMA No comment entered. Ordering Provider: JUANCARLOS ECHOLS S Report Released Date/Time: Jul 09, 2024 12:23 PM Reporting Lab: [facility] [address] Performing Lab: [facility] [address] CREATININE 0.7 mg/dL 0.7-1.2 UREA NITROGEN 27 mg/dL H 8-26 GLUCOSE 104 mg/dL H 70-100 SODIUM 133 mmol/L L 136-145 POTASSIUM 4.3 mmol/L 3.5-5.1 CHLORIDE 102 mmol/L 98-107 CO2 19 mmol/L L 22-29 CALCIUM 10.1 mg/dL 8.4-10.2 MAGNESIUM 1.9 mg/dL 1.6-2.6 ANION GAP 12 mmol/L 5-15 .CREAT EGFR(CKD-EPI) >90 >60 Jul 10, 2024 07:15 AM [facility] CBC Specimen Type: BLOOD No comment entered. Ordering Provider: JUANCARLOS ECHOLS Report Released Date/Time: Jul 09, 2024 12:23 PM Reporting Lab: [facility] [address] Performing Lab: [facility] [address] WBC 18.8 H 4.0-11.0 RBC 5.08 4.60-6.20 HGB 15.9 g/dL 13.5-17.9 HCT 46.8 41.0-54.0 MCV 92.1 fL 80.0-100.0 MCH 31.3 pg 27.0-33.0 MCHC 34.0 g/dL 32.0-37.5 PLT 479 H 150-400 MPV 10.2 fL 9.1-13.0 RDW 13.7 11.5-14.5 Jul 09, 2024 07:08 AM [facility] CBC Specimen Type: BLOOD No comment entered. Ordering Provider: QUYNH WEISS AV Report Released Date/Time: Jul 08, 2024 06:18 PM Reporting Lab: [facility] [address] Performing Lab: [facility] [address] WBC 15.3 H 4.0-11.0 RBC 4.91 4.60-6.20 HGB 15.1 g/dL 13.5-17.9 HCT 45.7 41.0-54.0 MCV 93.1 fL 80.0-100.0 MCH 30.8 pg 27.0-33.0 MCHC 33.0 g/dL 32.0-37.5 PLT 443 H 150-400 MPV 10.0 fL 9.1-13.0 RDW 13.5 11.5-14.5 Jul 08, 2024 10:50 AM [facility] URINALYSIS Specimen Type: URINE No comment entered. Ordering Provider: KATELYNN PERSON Report Released Date/Time: Jul 08, 2024 08:41 AM Reporting Lab: [facility] [address] Performing Lab: [facility] [address] URINE COLOR YELLOW SPECIFIC GRAVITY >1.050 H [...] NEGATIVE NEGATIVE Jul 08, 2024 09:54 AM [facility] CBC Specimen Type: BLOOD Comment: Specimen received in Lab at: 0952 Ordering Provider: JUANCARLOS ECHOLS Report Released Date/Time: Jul 07, 2024 04:49 PM Reporting Lab: [facility] [address] Performing Lab: [facility] [address] WBC 17.5 H 4.0-11.0 RBC 4.88 4.60-6.20 HGB 14.9 g/dL 13.5-17.9 HCT 45.7 41.0-54.0 MCV 93.6 fL 80.0-100.0 MCH 30.5 pg 27.0-33.0 MCHC 32.6 g/dL 32.0-37.5 PLT 472 H 150-400 MPV 10.2 fL 9.1-13.0 RDW 13.7 11.5-14.5 Jul 08, 2024 09:54 AM [facility] PHOSPHORUS Specimen Type: PLASMA Comment: Specimen received in Lab at: 0952 Ordering Provider: BALAJADIA,MAR IA S Report Released Date/Time: Jul 07, 2024 04:49 PM Reporting Lab: [facility] [address] Performing Lab: [facility] [address] PHOSPHORUS 2.6 mg/dL 2.3-4.3 Jul 08, 2024 09:54 AM [facility] BASIC METABOLIC PANEL+MG Specimen Type: PLASMA Comment: Specimen received in Lab at: 0952 Ordering Provider: JUANCARLOS ECHOLS S Report Released Date/Time: Jul 07, 2024 04:49 PM Reporting Lab: [facility] [address] Performing Lab: [facility] [address] CREATININE 0.9 mg/dL 0.7-1.2 UREA NITROGEN 26 mg/dL 8-26 GLUCOSE 128 mg/dL H 70-100 SODIUM 134 mmol/L L 136-145 POTASSIUM 3.4 mmol/L L 3.5-5.1 CHLORIDE 100 mmol/L 98-107 CO2 24 mmol/L 22-29 CALCIUM 9.8 mg/dL 8.4-10.2 MAGNESIUM 1.8 mg/dL 1.6-2.6 ANION GAP 10 mmol/L 5-15 .CREAT EGFR(CKD-EPI) >90 >60 Jul 07, 2024 02:00 PM [facility] C DIFF PANEL Specimen Type: FECES No comment entered. Ordering Provider: JEVON ZAZUETA Report Released Date/Time: Jul 07, 2024 12:26 PM Reporting Lab: [facility] [address] Performing Lab: [facility] [address] C DIFF TOX B GENE PCR NEGATIVE Negative Jul 07, 2024 07:41 AM [facility] PHOSPHORUS Specimen Type: PLASMA No comment entered. Ordering Provider: JEVON ZAZUETA Report Released Date/Time: Jul 06, 2024 03:44 PM Reporting Lab: [facility] [address] Performing Lab: [facility] [address] PHOSPHORUS 3.1 mg/dL 2.3-4.3 Jul 07, 2024 07:41 AM [facility] BASIC METABOLIC PANEL+MG Specimen Type: PLASMA No comment entered. Ordering Provider: JEVON ZAZUETA Report Released Date/Time: Jul 06, 2024 03:44 PM Reporting Lab: [facility] [address] Performing Lab: [facility] [address] CREATININE 0.9 mg/dL 0.7-1.2 UREA NITROGEN 20 mg/dL 8-26 GLUCOSE 157 mg/dL H 70-100 SODIUM 136 mmol/L 136-145 POTASSIUM 3.7 mmol/L 3.5-5.1 CHLORIDE 102 mmol/L 98-107 CO2 21 mmol/L L 22-29 CALCIUM 9.8 mg/dL 8.4-10.2 MAGNESIUM 1.9 mg/dL 1.6-2.6 ANION GAP 13 mmol/L 5-15 .CREAT EGFR(CKD-EPI) >90 >60 Jul 07, 2024 07:40 AM [facility] CBC Specimen Type: BLOOD No comment entered. Ordering Provider: JEVON ZAZUETA Report Released Date/Time: Jul 06, 2024 03:44 PM Reporting Lab: [facility] [address] Performing Lab: [facility] [address] WBC 21.2 H 4.0-11.0 RBC 5.09 4.60-6.20 HGB 15.9 g/dL 13.5-17.9 HCT 48.3 41.0-54.0 MCV 94.9 fL 80.0-100.0 MCH 31.2 pg 27.0-33.0 MCHC 32.9 g/dL 32.0-37.5 PLT 500 H 150-400 MPV 10.3 fL 9.1-13.0 RDW 13.6 11.5-14.5 Jul 06, 2024 07:21 AM [facility] CBC Specimen Type: BLOOD No comment entered. Ordering Provider: JEVON ZAZUETA Report Released Date/Time: Jul 05, 2024 01:22 PM Reporting Lab: [facility] [address] Performing Lab: [facility] [address] WBC 18.0 H 4.0-11.0 RBC 4.83 4.60-6.20 HGB 14.6 g/dL 13.5-17.9 HCT 45.5 41.0-54.0 MCV 94.2 fL 80.0-100.0 MCH 30.2 pg 27.0-33.0 MCHC 32.1 g/dL 32.0-37.5 PLT 368 150-400 MPV 10.4 fL 9.1-13.0 RDW 13.6 11.5-14.5 Jul 06, 2024 07:21 AM [facility] PHOSPHORUS Specimen Type: PLASMA No comment entered. Ordering Provider: JEVON ZAZUETA Report Released Date/Time: Jul 05, 2024 01:22 PM Reporting Lab: [facility] [address] Performing Lab: [facility] [address] PHOSPHORUS 3.6 mg/dL 2.3-4.3 Jul 06, 2024 07:21 AM [facility] BASIC METABOLIC PANEL+MG Specimen Type: PLASMA No comment entered. Ordering Provider: JEVON ZAZUETA Report Released Date/Time: Jul 05, 2024 01:22 PM Reporting Lab: [facility] [address] Performing Lab: [facility] [address] CREATININE 0.7 mg/dL 0.7-1.2 UREA NITROGEN 12 mg/dL 8-26 GLUCOSE 108 mg/dL H 70-100 SODIUM 138 mmol/L 136-145 POTASSIUM 3.4 mmol/L L 3.5-5.1 CHLORIDE 104 mmol/L 98-107 CO2 20 mmol/L L 22-29 CALCIUM 9.3 mg/dL 8.4-10.2 MAGNESIUM 1.9 mg/dL 1.6-2.6 ANION GAP 14 mmol/L 5-15 .CREAT EGFR(CKD-EPI) >90 >60 Jul 05, 2024 07:17 AM [facility] MAGNESIUM Specimen Type: PLASMA No comment entered. Ordering Provider: JUANCARLOS ECHOLS S Report Released Date/Time: Jul 04, 2024 09:39 AM Reporting Lab: [facility] [address] Performing Lab: [facility] [address] MAGNESIUM 2.0 mg/dL 1.6-2.6 Jul 05, 2024 07:17 AM [facility] PHOSPHORUS Specimen Type: PLASMA No comment entered. Ordering Provider: JUANCARLOS ECHOLS S Report Released Date/Time: Jul 04, 2024 09:39 AM Reporting Lab: [facility] [address] Performing Lab: [facility] [address] PHOSPHORUS 2.0 mg/dL L 2.3-4.3 Jul 05, 2024 07:17 AM [facility] BASIC METABOLIC PANEL+MG Specimen Type: PLASMA No comment entered. Ordering Provider: JUANCARLOS ECHOLS S Report Released Date/Time: Jul 04, 2024 09:39 AM Reporting Lab: [facility] [address] Performing Lab: [facility] [address] CREATININE 0.7 mg/dL 0.7-1.2 UREA NITROGEN 12 mg/dL 8-26 GLUCOSE 84 mg/dL 70-100 SODIUM 135 mmol/L L 136-145 POTASSIUM 3.8 mmol/L 3.5-5.1 CHLORIDE 104 mmol/L 98-107 CO2 24 mmol/L 22-29 CALCIUM 9.3 mg/dL 8.4-10.2 MAGNESIUM 2.0 mg/dL 1.6-2.6 ANION GAP 7 mmol/L 5-15 .CREAT EGFR(CKD-EPI) >90 >60 Jul 05, 2024 07:16 AM [facility] CBC Specimen Type: BLOOD No comment entered. Ordering Provider: JUANCARLOS ECHOLS S Report Released Date/Time: Jul 04, 2024 09:39 AM Reporting Lab: [facility] [address] Performing Lab: [facility] [address] WBC 18.3 H 4.0-11.0 RBC 4.49 L 4.60-6.20 HGB 14.1 g/dL 13.5-17.9 HCT 43.4 41.0-54.0 MCV 96.7 fL 80.0-100.0 MCH 31.4 pg 27.0-33.0 MCHC 32.5 g/dL 32.0-37.5 PLT 317 150-400 MPV 10.0 fL 9.1-13.0 RDW 13.9 11.5-14.5 Jul 04, 2024 07:17 AM [facility] BASIC METABOLIC PANEL+MG Specimen Type: PLASMA No comment entered. Ordering Provider: GABINO CAMERON Report Released Date/Time: Jul 03, 2024 06:31 PM Reporting Lab: [facility] [address] Performing Lab: [facility] [address] CREATININE 0.7 mg/dL 0.7-1.2 UREA NITROGEN 16 mg/dL 8-26 GLUCOSE 129 mg/dL H 70-100 SODIUM 137 mmol/L 136-145 POTASSIUM 3.7 mmol/L 3.5-5.1 CHLORIDE 107 mmol/L 98-107 CO2 22 mmol/L 22-29 CALCIUM 9.0 mg/dL 8.4-10.2 MAGNESIUM 1.9 mg/dL 1.6-2.6 ANION GAP 8 mmol/L 5-15 .CREAT EGFR(CKD-EPI) >90 >60 Jul 04, 2024 07:17 AM [facility] PHOSPHORUS Specimen Type: PLASMA No comment entered. Ordering Provider: GABINO CAMERON Report Released Date/Time: Jul 03, 2024 06:31 PM Reporting Lab: [facility] [address] Performing Lab: [facility] [address] PHOSPHORUS 2.8 mg/dL 2.3-4.3 Jul 04, 2024 07:16 AM [facility] CBC Specimen Type: BLOOD No comment entered. Ordering Provider: GABINO CAMERON Report Released Date/Time: Jul 03, 2024 06:31 PM Reporting Lab: [facility] [address] Performing Lab: [facility] [address] WBC 20.6 H 4.0-11.0 RBC 4.63 4.60-6.20 HGB 14.2 g/dL 13.5-17.9 HCT 43.4 41.0-54.0 MCV 93.7 fL 80.0-100.0 MCH 30.7 pg 27.0-33.0 MCHC 32.7 g/dL 32.0-37.5 PLT 329 150-400 MPV 10.4 fL 9.1-13.0 RDW 13.8 11.5-14.5 Jul 04, 2024 07:16 AM [facility] CBC & DIFF Specimen Type: BLOOD Comment: Manual Differential Performed Ordering Provider: GABINO CAMERON Report Released Date/Time: Jul 03, 2024 06:31 PM Reporting Lab: [facility] [address] Performing Lab: [facility] [address] WBC 20.6 H 4.0-11.0 RBC 4.63 4.60-6.20 [...] MORPHOLOGY PRESENT Jul 04, 2024 07:15 AM [facility] BNP Specimen Type: PLASMA No comment entered. Ordering Provider: GABINO CAMERON Report Released Date/Time: Jul 03, 2024 06:31 PM Reporting Lab: [facility] [address] Performing Lab: [facility] [address] BNP 292 pg/mL H <99 Jul 03, 2024 10:32 PM [facility] FINGERSTICK GLUCOSE Specimen Type: BLOOD Comment: Save Result Nurse Notified Ordering Provider: KATELYNN PERSON Report Released Date/Time: Jul 03, 2024 10:50 PM Reporting Lab: [facility] [address] Performing Lab: [facility] [address] FINGERSTICK GLUCOSE 126 mg/dL H 70-100 Jul 03, 2024 05:33 PM [facility] FINGERSTICK GLUCOSE Specimen Type: BLOOD Comment: Save Result Nurse Notified Ordering Provider: KATELYNN PERSON Report Released Date/Time: Jul 03, 2024 05:46 PM Reporting Lab: [facility] [address] Performing Lab: [facility] [address] FINGERSTICK GLUCOSE 141 mg/dL H 70-100 Jul 03, 2024 02:31 PM [facility] POC ABG/ELECTROLYTES Specimen Type: ARTERIAL BLOOD Comment: FIO2 = 97% Patient Temp: 36.0 C Sample Type = ARTERIAL Ordering Provider: MAZIN ARREDONDO Report Released Date/Time: Jul 03, 2024 01:48 PM Reporting Lab: [facility] [address] Performing Lab: [facility] [address] POC PH 7.387 7.35-7.45 POC PCO2 34.4 [...] H 80.0-105.0 Jul 03, 2024 01:05 PM [facility] POC ABG/ELECTROLYTES Specimen Type: ARTERIAL BLOOD Comment: FIO2 = 53% Patient Temp: 36.2 C Sample Type = ARTERIAL Ordering Provider: MAZIN ARREDONDO Report Released Date/Time: Jul 03, 2024 01:48 PM Reporting Lab: [facility] [address] Performing Lab: [facility] [address] POC PH 7.280 L 7.35-7.45 POC PCO2 [...] mm[Hg] 80.0-105.0 Jul 03, 2024 06:15 AM [facility] URINALYSIS Specimen Type: URINE No comment entered. Ordering Provider: MARYBETH POWELL Report Released Date/Time: Jun 12, 2024 04:01 PM Reporting Lab: [facility] [address] Performing Lab: [facility] [address] URINE COLOR YELLOW SPECIFIC GRAVITY 1.031 1.003-1.03 [...] 250 NEGATIVE Jul 03, 2024 06:13 AM [facility] CBC Specimen Type: BLOOD No comment entered. Ordering Provider: MARYBETH POWELL Report Released Date/Time: Jun 12, 2024 03:59 PM Reporting Lab: [facility] [address] Performing Lab: [facility] [address] WBC 15.8 H 4.0-11.0 RBC 5.11 4.60-6.20 HGB 16.1 g/dL 13.5-17.9 HCT 49.1 41.0-54.0 MCV 96.1 fL 80.0-100.0 MCH 31.5 pg 27.0-33.0 MCHC 32.8 g/dL 32.0-37.5 PLT 357 150-400 MPV 9.8 fL 9.1-13.0 RDW 13.7 11.5-14.5 Jun 24, 2024 09:50 AM [facility] BASIC METABOLIC PANEL+MG Specimen Type: PLASMA Comment: Specimen received in Lab at: 0948 Ordering Provider: JEVON ZAZUETA Report Released Date/Time: Jun 23, 2024 06:07 PM Reporting Lab: [facility] [address] Performing Lab: [facility] [address] CREATININE 0.8 mg/dL 0.7-1.2 UREA NITROGEN 13 mg/dL 8-26 GLUCOSE 135 mg/dL H 70-100 SODIUM 135 mmol/L L 136-145 POTASSIUM 3.6 mmol/L 3.5-5.1 CHLORIDE 103 mmol/L 98-107 CO2 24 mmol/L 22-29 CALCIUM 9.2 mg/dL 8.4-10.2 MAGNESIUM 1.9 mg/dL 1.6-2.6 ANION GAP 8 mmol/L 5-15 .CREAT EGFR(CKD-EPI) >90 >60 Jun 24, 2024 09:50 AM [facility] CBC Specimen Type: BLOOD Comment: Specimen received in Lab at: 0948 Ordering Provider: JEVON ZAZUETA Report Released Date/Time: Jun 23, 2024 06:07 PM Reporting Lab: [facility] [address] Performing Lab: [facility] [address] WBC 15.5 H 4.0-11.0 RBC 4.93 4.60-6.20 HGB 15.2 g/dL 13.5-17.9 HCT 46.5 41.0-54.0 MCV 94.3 fL 80.0-100.0 MCH 30.8 pg 27.0-33.0 MCHC 32.7 g/dL 32.0-37.5 PLT 223 150-400 MPV 11.4 fL 9.1-13.0 RDW 13.9 11.5-14.5 Jun 23, 2024 07:52 AM [facility] COMPREHENSIVE METABOLIC PANEL+MG Specimen Type: PLASMA No comment entered. Ordering Provider: JEVON ZAZUETA Report Released Date/Time: Jun 22, 2024 05:51 PM Reporting Lab: [facility] [address] Performing Lab: [facility] [address] CREATININE 0.7 mg/dL 0.7-1.2 UREA NITROGEN 16 [...] >90 >60 Jun 23, 2024 07:52 AM [facility] CBC & DIFF Specimen Type: BLOOD Comment: Automated Differential Performed Ordering Provider: JEVON ZAZUETA Report Released Date/Time: Jun 22, 2024 05:51 PM Reporting Lab: [facility] [address] Performing Lab: [facility] [address] WBC 14.9 H 4.0-11.0 RBC 5.09 4.60-6.20 [...] 0.1 0.0-0.1 Jun 22, 2024 06:10 PM [facility] CBC Specimen Type: BLOOD No comment entered. Ordering Provider: JEVON ZAZUETA Report Released Date/Time: Jun 22, 2024 05:51 PM Reporting Lab: [facility] [address] Performing Lab: [facility] [address] WBC 16.9 H 4.0-11.0 RBC 5.28 4.60-6.20 HGB 16.9 g/dL 13.5-17.9 HCT 50.4 41.0-54.0 MCV 95.5 fL 80.0-100.0 MCH 32.0 pg 27.0-33.0 MCHC 33.5 g/dL 32.0-37.5 PLT 223 150-400 MPV 10.9 fL 9.1-13.0 RDW 14.0 11.5-14.5 Jun 22, 2024 06:10 PM [facility] COMPREHENSIVE METABOLIC PANEL+MG Specimen Type: PLASMA No comment entered. Ordering Provider: JEVON ZAZUETA Report Released Date/Time: Jun 22, 2024 05:51 PM Reporting Lab: [facility] [address] Performing Lab: [facility] [address] CREATININE 0.7 mg/dL 0.7-1.2 UREA NITROGEN 17 [...] >90 >60 Jun 21, 2024 06:48 PM [facility] URINALYSIS Specimen Type: URINE No comment entered. Ordering Provider: DELIA MARTINEZ Report Released Date/Time: Jun 21, 2024 05:45 PM Reporting Lab: [facility] [address] Performing Lab: [facility] [address] URINE COLOR YELLOW SPECIFIC GRAVITY 1.041 H [...] 500 NEGATIVE Jun 21, 2024 05:34 PM [facility] POC CREATININE Specimen Type: BLOOD No comment entered. Ordering Provider: DELIA MARTINEZ Report Released Date/Time: Jun 21, 2024 06:07 PM Reporting Lab: [facility] [address] Performing Lab: [facility] [address] POC CREATININE 1.1 mg/dL 0.6-1.3 Jun 21, 2024 05:30 PM [facility] POC ABG/LACTATE Specimen Type: VENOUS BLOOD No comment entered. Ordering Provider: DELIA MARTINEZ Report Released Date/Time: Jun 21, 2024 06:07 PM Reporting Lab: [facility] [address] Performing Lab: [facility] [address] POC PH 7.470 H 7.31-7.41 POC PCO2 31.2 mm[Hg] L 41.00-51 .0 0 POC PO2 46 mm[Hg] H 35.0-40.0 POC TCO2 24 mmol/L 24.0-29.0 POC HCO3 22.7 mmol/L L 23.0-28.0 POC BE ECT -1 mmol/L POC SO2 85 H 70-75 POC LACTATE 1.85 mmol/L 0.90-1.70 Jun 21, 2024 05:24 PM [facility] PROTHROMBIN TIME/INR Specimen Type: PLASMA No comment entered. Ordering Provider: DELIA MARTINEZ Report Released Date/Time: Jun 21, 2024 05:30 PM Reporting Lab: [facility] [address] Performing Lab: [facility] [address] .INR 1.2 H 0.8-1.1 .PT 13.9 s H 9.4-12.5 Jun 21, 2024 05:24 PM [facility] LIPASE Specimen Type: PLASMA No comment entered. Ordering Provider: DELIA MARTINEZ Report Released Date/Time: Jun 21, 2024 05:30 PM Reporting Lab: [facility] [phone] Performing Lab: [facility] [address] LIPASE 32 U/L <60 Jun 21, 2024 05:24 PM [facility] EXTRA GOLD GEL TUBE Specimen Type: SERUM No comment entered. Ordering Provider: DELIA MARTINEZ Report Released Date/Time: Jun 21, 2024 05:41 PM Reporting Lab: [facility] [address] Performing Lab: [facility] [address] EXTRA GOLD GEL TUBE RECEIVED Jun 21, 2024 05:24 PM [facility] COMPREHENSIVE METABOLIC PANEL+MG Specimen Type: PLASMA No comment entered. Ordering Provider: DELIA MARTINEZ Report Released Date/Time: Jun 21, 2024 05:30 PM Reporting Lab: [facility] [address] Performing Lab: [facility] [address] CREATININE 0.9 mg/dL 0.7-1.2 UREA NITROGEN 29 [...] mg/dL <0.5 Jun 21, 2024 05:24 PM [facility] CBC & DIFF Specimen Type: BLOOD Comment: Manual Differential Performed Ordering Provider: DELIA MARTINEZ Report Released Date/Time: Jun 21, 2024 05:30 PM Reporting Lab: [facility] [address] Performing Lab: [facility] [address] WBC 21.3 H 4.0-11.0 RBC 5.48 4.60-6.20 [...] PM 97.9 91 134/69 16 92 3 [facility] Jul 08, 2024 05:29 PM 98.2 64 121/67 16 97 3 [facility] Jul 08, 2024 09:25 AM 97.6 70 127/56 18 98 0 [facility] Social History: Smoking Status (Most [...] 15, 2024 08:30 AM [facility] 15 YRS OR MORE [facility] May 06, 2023 11:30 AM 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 The data comes from all [facility]. Date Advance Directives Provider Source Mar 23, 2016 CLINICAL WARNING [facility] Radiology Reports: +/- 30 [...] VIEWS PA A ND LAT: FLACA WEAVER [id number] -[id number] M Exm Date: JUL 08, 2024@10:09 Req Phys: KATELYNN PERSON Pat Loc: 2KG/07-08-2024@11:49 Img Loc: MAIN X-RAY Service: [place] [address] (Case 24 COMPLETE) CHEST 2 VIEWS PA AND LAT (RAD Detailed) CPT:41215 Reason for Study: Uptrending WBC, POD 5 [...] 08, 2024 Date Verified: JUL 08, 2024 Stopper Setter E-Sig: Report: CHEST 2 VIEWS PA AND LAT HISTORY: Uptrending WBC, POD 5 COMPARISON: CT chest 11/12/2022 TECHNIQUE: Frontal and lateral views of the chest, submitted to the [place] National Teleradiology Program (NTP) for interpretation. FINDINGS: Lungs: Clear. No focal consolidation. No pulmonary edema. Pleura: No pleural effusion or pneumothorax. Mediastinum: Normal size and contour. Bones: Unremarkable. Impression: No acute cardiopulmonary disease. READING PHYSICIAN: Sarbjit Vaughn M.D. -[phone] 07/08/2024 12:46 EST [facility] National Teleradiology Program [phone] (For Medical Practitioner Use Only) Attention Patients / Veterans: If you have questions or concerns about these test results, please contact your ordering provider or primary care team. Primary Interpreting Staff: RADIOLOGY,OUTSIDE SERVICE, Staff Physician / RADIOLOGY,OUTSIDE SERVICE [facility] Jul 08, 2024 10:[address] (AP) ABDOMEN/PE LVIS W CONTRAST: EMGFLACA YAMIL [id number] -1950 Ex Date: JUL 08, 2024@10:00 Req Phys: KATELYNN PERSON Pat Loc: 2K/07-08-2024@12:07 Img Loc: CT IMAGING Service: [place] [address] (Case 22 COMPLETE) CT (AP) ABDOMEN/PELVIS W CONTRAST(CT Detailed) CPT:58524 Contrast Media : Non-ionic Iodinated Reason for [...] PLASMA .CREAT EGFR(CKD-E >90 Ref: >=60 Allergies: ([place] only) TERAZOSIN (Mar 13, 2015) Report Status: Verified Date Reported: JUL 08, 2024 Date Verified: JUL 08, 2024 Stopper Setter E-Sig: Report: CT (AP) ABDOMEN/PELVIS W CONTRAST HISTORY: POD 5, Uptrending WBC - Concern for Abscess/other infection COMPARISON: June 21, 2024 TECHNIQUE: CT abdomen and pelvis was performed after intravenous contrast. Axial, sagittal and coronal reformatted images. The study was performed at the local [place] facility and images were sent to the [place] [facility] (NTP) for interpretation. Number [...] as noted above READING PHYSICIAN: Celestino Blanc -[phone] 07/08/2024 13:04 EST [facility] [employer] [facility] [phone] (For Medical Practitioner Use Only) Attention Patients / Veterans: If you have questions or concerns about these test results, please contact your ordering provider or primary care team. Primary Interpreting Staff: RADIOLOGY,OUTSIDE SERVICE, Staff Physician / RADIOLOGY,OUTSIDE SERVICE [facility] Jun 22, 2024 11:49 AM ABSCESS DRAIN PLAC EMENT PERITONEAL (P): MEGFLACADARCI LOBO [id number] -1950 M Exm Date: JUN 22, 2024@11:49 Req Phys: ANGELA HOLDEN [facility] Loc: [facility]/06-22-2024@17:14 Img Loc: INTERVENTIONAL RADIOLOGY Service: [place] [address] (Case [id number] COMPLETE) IR PERITONEAL/RETROPERITONEAL PER(ANI Detailed) CPT:49504 Reason for Study: diverticulitis with abscess (Case 3570 COMPLETE) IR MOD SEDATION 10-22 MIN (ANI Detailed) CPT:89322 Clinical History: IS NOT under investigation for COVID-19 or is COVID-19 negative 73 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 please place abscess drain. Contact number for responsible provider who can be reached for any questions or notifications of critical findings: [phone] n/a LAST CREATININE 0.9 (06/21/24) Report Status: Verified Date Reported: JUN 22, 2024 Date Verified: JUN 22, 2024 Stopper Setter E-Sig:/ES/LISA PENDLETON MD Report: PROCEDURES: Placement [...] anesthesia. Using real-time CT fluoroscopy, a 5 [place] Datadecisionesis catheter was advanced into the collection in the left pelvis. A wire was coiled in the collection. The tract into the collection was dilated to accommodate the 12 [place] locking pigtail drainage catheter. There was return [...] Primary Interpreting Staff: LISA PENDLETON MD, RADIOLOGIST (Stopper Setter) /JRT LISA PENDLETON [facility] Jun 22, 2024 11:[address] NEEDLE PLACEMEN T (P): FLACA WEAVER [id number] -1950 M Exm Date: JUN 22, 2024@11:48 Req Phys: ANGELA HOLDEN [facility] Loc: [facility]/06-22-2024@17:14 [facility] Loc: CT IMAGING Service: [place] [address] (Case [id number] COMPLETE) CT SCAN FOR NEEDLE PLACEMENT (CT Detailed) CPT:09849 Reason for Study: l pelvic abscess drain Clinical History: Report Status: Verified Date Reported: JUN 22, 2024 Date Verified: JUN 22, 2024 Stopper Setter E-Sig:/ES/LISA PENDLETON MD Report: PROCEDURES: Placement [...] anesthesia. Using real-time CT fluoroscopy, a 5 [place] Datadecisionesis catheter was advanced into the collection in the left pelvis. A wire was coiled in the collection. The tract into the collection was dilated to accommodate the 12 [place] locking pigtail drainage catheter. There was return [...] Primary Interpreting Staff: LISA PENDLETON MD, RADIOLOGIST (Stopper Setter) /JRT LISA PENDLETON [facility] Jun 21, 2024 06:[address] (AP) ABDOMEN/PE LVIS (P): MEGFLACA YAMIL [id number] -1950 Ex Date: JUN 21, 2024@18:09 Req Phys: DELIA MARTINEZ Loc: [facility] (Re Img Loc: CT IMAGING Service: [place] [address] (Case [id number] COMPLETE) CT (AP) ABDOMEN/PELVIS W CONTRAST(CT Detailed) CPT:06605 Contrast Media : Non-ionic Iodinated Reason for [...] PLASMA .CREAT EGFR(CKD-E >90 Ref: >=60 Allergies: ([place] only) TERAZOSIN (Mar 13, 2015) Defer to [...] 21, 2024 Date Verified: JUN 21, 2024 Stopper Setter E-Sig:/ES/CARLOS A CUNNINGHAM DO Report: EXAMINATION: CT [...] Interpreting Staff: CARLOS A CUNNINGHAM DO, RADIOLOGIST (Stopper Setter) /CARLOS A ROWELL [facility] Pathology Reports: +/- 30 [...] COSIGNER: URGENCY: STATUS: COMPLETED $APHDR Reporting Lab: [facility] [CLIA# [id number]] [place] [address] - - - - - - - [...] - PATHOLOGY REPORT Accession No. [id number] - - - - - - - [...] - PATHOLOGY REPORT Accession No. [id number] - - - - - - - [...] Second circumferential surgical margin, en face; E-F: Psych Np diverticula; G: Psych Np section of mesentery; H: Random hvac sales representative section of additional adipose tissue [...] One colonic tissue ring, bisected transversely. [facility]. [facility]: Microscopic examination performed. DIAGNOSIS: 1. Colon, sigmoid, sigmoidectomy-- - Diverticulosis with perforation and focal abscess formation 2. 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 FORM 515 ID:[id number] SEX:M :1950 AGE: 73 LOC:[id number] ADM:Jun DX:DIVERTICULITIS PCP: Jatinder Cabrera /alexi/ EDUARDO PALOMARES MD STAFF PATHOLOGIST Signed: 07/06/2024 10:40 EDUARDO PALOMARES [facility] Jun 22, 2024 01:15 PM LR MICROBIOLOGY RE PORT: Reporting Lab: [facility] [CLIA# [id number]] [place] [address] Accession [UID]: [id number] [[id number]] Received: Jun 22, 2024@13:38 Collection sample: FLUID Collection date: Jun 22, 2024 13:15 Provider: ANGELA HOLDEN Comment on specimen: LLQ ABSCESS, RECEIVED IN ANAEROBIC TRANSPORT VIAL Test(s) ordered: GRAM STAIN.................... completed: Jun 22, 2024 15:03 CULTURE & SUSCEPTIBILITY...... completed: Jun 25, 2024 * BACTERIOLOGY FINAL REPORT => Jun 25, 2024 10:56 TECH CODE: [id number] GRAM STAIN: DIRECT SMEAR of specimen before [...] -=--=--=--=--=--=--=-- Performing Laboratory: Bacteriology Report Performed By: [facility] [CLIA# [id number]] [place] [address] [facility] Jun 22, 2024 01:15 PM LR MICROBIOLOGY RE PORT: Reporting Lab: [facility] [CLIA# [id number]] [place] [address] Accession [UID]: [id number] [[id number]] Received: Jun 22, 2024@13:38 Collection sample: FLUID Collection date: Jun 22, 2024 13:15 Provider: ANGELA HOLDEN Comment on specimen: LLQ ABSCESS, RECEIVED IN ANAEROBIC TRANSPORT VIAL Test(s) ordered: ANAEROBIC CULTURE............. completed: Jun 28, 2024 * BACTERIOLOGY FINAL REPORT => Jun 28, 2024 10:08 TECH CODE: [id number] CULTURE RESULTS: HEAVY GROWTH MIXED ANAEROBES Comment: including the followin+ Bacteroides fragilis 4+ Bacteroides vulgatus 4+ Clostridium innocuum Beta-lactamase negative 4+ Bacteroides caccae 4+ Parvimonas micra 4+ Bacteroides uniformis 4+ Gemella morbillorum 4+ anaerobic small, Gram Positive Rods 4+ Bacteroides thetaiotaomicron Standard workup is now complete. Bacteriology Remark(s): THIS REPORT IS FINAL =--=--=--=--=--=--=--=--=--= --=--=--=--=--=--=--=--=--=- -=--=--=--=--=--=--=-- Performing Laboratory: Bacteriology Report Performed By: [facility] [CLIA# [id number]] [place] [address] [facility] Jun 21, 2024 06:12 PM LR MICROBIOLOGY RE PORT: Reporting Lab: [facility] [CLIA# [id number]] [place] [address] Accession [UID]: [id number] [[id number]] Received: Jun 21, 2024@18:12 Collection sample: BLOOD [...] -=--=--=--=--=--=--=-- Performing Laboratory: Bacteriology Report Performed By: [facility] [CLIA# [id number]] [place] [address] [facility] Jun 21, 2024 06:11 PM LR MICROBIOLOGY RE PORT: Reporting Lab: [facility] [CLIA# [id number]] [place] [address] Accession [UID]: [id number] [[id number]] Received: Jun 21, 2024@18:11 Collection sample: BLOOD [...] -=--=--=--=--=--=--=-- Performing Laboratory: Bacteriology Report Performed By: [facility] [CLIA# [id number]] [place] [address] [facility] Jun 08, 2024 11:00 AM LR MICROBIOLOGY RE PORT: Reporting Lab: [facility] [CLIA# [id number]] [place] [address] Accession [UID]: [id number] [[id number]] Received: Jun 08, 2024@11:00 Collection sample: URINE Collection date: Jun 08, 2024 11:00 Provider: MARYBETH POWELL Comment on specimen: urine Test(s) ordered: CULTURE & SUSCEPTIBILITY...... completed: Jun 09, 2024 * BACTERIOLOGY FINAL REPORT => Jun 09, 2024 19:12 TECH CODE: [id number] CULTURE RESULTS: ESCHERICHIA COLI - Quantity: >100,000 [...] -=--=--=--=--=--=--=-- Performing Laboratory: Bacteriology Report Performed By: [facility] [CLIA# [id number]] [place] [address] [facility]
--- OUTSIDE RECORDS SUMMARY | 2024-07-16 07:20 | XMS_ITS | Encounter Summary ---
Author Name [facility] [place] [facility] [place] Address [address] [place] [address] Care Team Providers Care Associate Professor Of Counseling Name Role Phone JATINDER CABRERA Primary Care [...] PART A Sep 29, 2016 PART A [id number] [phone] JUDY WEAVER PATIENT Selected Encounter This section includes the information on record at [place] for the Encounter. Date/Time Encounter Type Encounter Description Reason Pro vider Source Jul 07, 2024 01:00 AM Inpatient Visit ADMIN PAT ACTIVTIES ([employer] Mobile[employer]) SYSTEM,CIS-ARK IHE Encounter Template Text not used [...] 13, 2024 08:15 AM AMBULATORY - NONE [facility] Active, Pending, and Scheduled Orders This section includes a listing of several types of active, pending, and scheduled orders, including clinic medications orders, diagnostic test orders, procedure orders and consult orders; where the start date of the order is 45 days before the date of the Encounter or 45 days after the date of theEncounter. The data comes from all [facility]. Test Date/Time Test Type Test Details [...] BLOOD WC [facility] Jul 16, 2024 12:00 AM Laboratory - [...] 09, 2024 12:23 PM Reporting Lab: [facility] [address] Performing Lab: [facility] [address] PHOSPHORUS 3.0 mg/dL 2.3-4.3 Jul 10, 2024 07:16 AM [facility] BASIC METABOLIC PANEL+MG Specimen Type: PLASMA No comment entered. Ordering Provider: JUANCARLOS ECHOLS S Report Released Date/Time: Jul 09, 2024 12:23 PM Reporting Lab: [facility] [address] Performing Lab: [facility] [address] CREATININE 0.7 mg/dL 0.7-1.2 UREA NITROGEN 27 [...] 09, 2024 12:23 PM Reporting Lab: [facility] [address] Performing Lab: [facility] [address] WBC 18.8 H 4.0-11.0 RBC 5.08 4.60-6.20 [...] 08, 2024 06:18 PM Reporting Lab: [facility] [address] Performing Lab: [facility] [address] WBC 15.3 H 4.0-11.0 RBC 4.91 4.60-6.20 [...] 08, 2024 08:41 AM Reporting Lab: [facility] [address] Performing Lab: [facility] [address] URINE COLOR YELLOW SPECIFIC GRAVITY >1.050 H [...] 07, 2024 04:49 PM Reporting Lab: [facility] [address] Performing Lab: [facility] [address] WBC 17.5 H 4.0-11.0 RBC 4.88 4.60-6.20 [...] 07, 2024 04:49 PM Reporting Lab: [facility] [address] Performing Lab: [facility] [address] PHOSPHORUS 2.6 mg/dL 2.3-4.3 Jul 08, 2024 09:54 AM [facility] BASIC METABOLIC PANEL+MG Specimen Type: PLASMA Comment: Specimen received in Lab at: 0952 Ordering Provider: JUANCARLOS ECHOLS S Report Released Date/Time: Jul 07, 2024 04:49 PM Reporting Lab: [facility] [address] Performing Lab: [facility] [address] CREATININE 0.9 mg/dL 0.7-1.2 UREA NITROGEN 26 [...] 07, 2024 12:26 PM Reporting Lab: [facility] [address] Performing Lab: [facility] [address] C DIFF TOX B GENE PCR NEGATIVE Negative Jul 07, 2024 07:41 AM [facility] PHOSPHORUS Specimen Type: PLASMA No comment entered. Ordering Provider: JEVON ZAZUETA Report Released Date/Time: Jul 06, 2024 03:44 PM Reporting Lab: [facility] [address] Performing Lab: [facility] [address] PHOSPHORUS 3.1 mg/dL 2.3-4.3 Jul 07, 2024 07:41 AM [facility] BASIC METABOLIC PANEL+MG Specimen Type: PLASMA No comment entered. Ordering Provider: JEVON ZAZUETA Report Released Date/Time: Jul 06, 2024 03:44 PM Reporting Lab: [facility] [address] Performing Lab: [facility] [address] CREATININE 0.9 mg/dL 0.7-1.2 UREA NITROGEN 20 [...] 06, 2024 03:44 PM Reporting Lab: [facility] [address] Performing Lab: [facility] [address] WBC 21.2 H 4.0-11.0 RBC 5.09 4.60-6.20 [...] 05, 2024 01:22 PM Reporting Lab: [facility] [address] Performing Lab: [facility] [address] WBC 18.0 H 4.0-11.0 RBC 4.83 4.60-6.20 [...] 05, 2024 01:22 PM Reporting Lab: [facility] [address] Performing Lab: [facility] [address] PHOSPHORUS 3.6 mg/dL 2.3-4.3 Jul 06, 2024 07:21 AM [facility] BASIC METABOLIC PANEL+MG Specimen Type: PLASMA No comment entered. Ordering Provider: JEVON ZAZUETA Report Released Date/Time: Jul 05, 2024 01:22 PM Reporting Lab: [facility] [address] Performing Lab: [facility] [address] CREATININE 0.7 mg/dL 0.7-1.2 UREA NITROGEN 12 [...] 04, 2024 09:39 AM Reporting Lab: [facility] [address] Performing Lab: [facility] [address] MAGNESIUM 2.0 mg/dL 1.6-2.6 Jul 05, 2024 07:17 AM [facility] PHOSPHORUS Specimen Type: PLASMA No comment entered. Ordering Provider: JUANCARLOS ECHOLS S Report Released Date/Time: Jul 04, 2024 09:39 AM Reporting Lab: [facility] [address] Performing Lab: [facility] [address] PHOSPHORUS 2.0 mg/dL L 2.3-4.3 Jul 05, 2024 07:17 AM [facility] BASIC METABOLIC PANEL+MG Specimen Type: PLASMA No comment entered. Ordering Provider: JUANCARLOS ECHOLS S Report Released Date/Time: Jul 04, 2024 09:39 AM Reporting Lab: [facility] [address] Performing Lab: [facility] [address] CREATININE 0.7 mg/dL 0.7-1.2 UREA NITROGEN 12 [...] 04, 2024 09:39 AM Reporting Lab: [facility] [address] Performing Lab: [facility] [address] WBC 18.3 H 4.0-11.0 RBC 4.49 L [...] 03, 2024 06:31 PM Reporting Lab: [facility] [address] Performing Lab: [facility] [address] PHOSPHORUS 2.8 mg/dL 2.3-4.3 Jul 04, 2024 07:17 AM [facility] BASIC METABOLIC PANEL+MG Specimen Type: PLASMA No comment entered. Ordering Provider: GABINO CAMERON Report Released Date/Time: Jul 03, 2024 06:31 PM Reporting Lab: [facility] [address] Performing Lab: [facility] [address] CREATININE 0.7 mg/dL 0.7-1.2 UREA NITROGEN 16 [...] 03, 2024 06:31 PM Reporting Lab: [facility] [address] Performing Lab: [facility] [address] WBC 20.6 H 4.0-11.0 RBC 4.63 4.60-6.20 [...] 03, 2024 06:31 PM Reporting Lab: [facility] [address] Performing Lab: [facility] [address] WBC 20.6 H 4.0-11.0 RBC 4.63 4.60-6.20 [...] 03, 2024 06:31 PM Reporting Lab: [facility] [address] Performing Lab: [facility] [address] BNP 292 pg/mL H <99 Jul 03, 2024 10:32 PM [facility] FINGERSTICK GLUCOSE Specimen Type: BLOOD Comment: Save Result Nurse Notified Ordering Provider: KATELYNN PERSON Report Released Date/Time: Jul 03, 2024 10:50 PM Reporting Lab: [facility] [address] Performing Lab: [facility] [address] FINGERSTICK GLUCOSE 126 mg/dL H 70-100 Jul 03, 2024 05:33 PM [facility] FINGERSTICK GLUCOSE Specimen Type: BLOOD Comment: Save Result Nurse Notified Ordering Provider: KATELYNN PERSON Report Released Date/Time: Jul 03, 2024 05:46 PM Reporting Lab: [facility] [address] Performing Lab: [facility] [address] FINGERSTICK GLUCOSE 141 mg/dL H 70-100 Jul 03, 2024 02:31 PM [facility] POC ABG/ELECTROLYTES Specimen Type: ARTERIAL BLOOD Comment: FIO2 = 97% Patient Temp: 36.0 C Sample Type = ARTERIAL Ordering Provider: MAZIN ARREDONDO Report Released Date/Time: Jul 03, 2024 01:48 PM Reporting Lab: [facility] [address] Performing Lab: [facility] [address] POC PH 7.387 7.35-7.45 POC PCO2 34.4 [...] 03, 2024 01:48 PM Reporting Lab: [facility] [address] Performing Lab: [facility] [address] POC PH 7.280 L 7.35-7.45 POC PCO2 [...] 12, 2024 04:01 PM Reporting Lab: [facility] [address] Performing Lab: [facility] [address] URINE COLOR YELLOW SPECIFIC GRAVITY 1.031 1.003-1.03 [...] 12, 2024 03:59 PM Reporting Lab: [facility] [address] Performing Lab: [facility] [address] WBC 15.8 H 4.0-11.0 RBC 5.11 4.60-6.20 [...] 23, 2024 06:07 PM Reporting Lab: [facility] [address] Performing Lab: [facility] [address] CREATININE 0.8 mg/dL 0.7-1.2 UREA NITROGEN 13 [...] 23, 2024 06:07 PM Reporting Lab: [facility] [address] Performing Lab: [facility] [address] WBC 15.5 H 4.0-11.0 RBC 4.93 4.60-6.20 [...] 22, 2024 05:51 PM Reporting Lab: [facility] [address] Performing Lab: [facility] [address] CREATININE 0.7 mg/dL 0.7-1.2 UREA NITROGEN 16 [...] 22, 2024 05:51 PM Reporting Lab: [facility] [address] Performing Lab: [facility] [address] WBC 14.9 H 4.0-11.0 RBC 5.09 4.60-6.20 [...] 22, 2024 05:51 PM Reporting Lab: [facility] [address] Performing Lab: [facility] [address] CREATININE 0.7 mg/dL 0.7-1.2 UREA NITROGEN 17 [...] >90 >60 Jun 22, 2024 06:10 PM [facility] CBC Specimen Type: BLOOD No comment entered. Ordering Provider: JEVON ZAZUETA Report Released Date/Time: Jun 22, 2024 05:51 PM Reporting Lab: [facility] [address] Performing Lab: [facility] [address] WBC 16.9 H 4.0-11.0 RBC 5.28 4.60-6.20 HGB 16.9 g/dL 13.5-17.9 HCT 50.4 41.0-54.0 MCV 95.5 fL 80.0-100.0 MCH 32.0 pg 27.0-33.0 MCHC 33.5 g/dL 32.0-37.5 PLT 223 150-400 MPV 10.9 fL 9.1-13.0 RDW 14.0 11.5-14.5 Jun 21, 2024 06:48 PM [facility] URINALYSIS Specimen Type: URINE No comment entered. Ordering Provider: DELIA MARTINEZ Report Released Date/Time: Jun 21, 2024 05:45 PM Reporting Lab: [facility] [address] Performing Lab: [facility] [address] URINE COLOR YELLOW SPECIFIC GRAVITY 1.041 H [...] 21, 2024 06:07 PM Reporting Lab: [facility] [address] Performing Lab: [facility] [address] POC CREATININE 1.1 mg/dL 0.6-1.3 Jun 21, 2024 05:30 PM [facility] POC ABG/LACTATE Specimen Type: VENOUS BLOOD No comment entered. Ordering Provider: DELIA MARTINEZ Report Released Date/Time: Jun 21, 2024 06:07 PM Reporting Lab: [facility] [address] Performing Lab: [facility] [address] POC PH 7.470 H 7.31-7.41 POC PCO2 [...] 21, 2024 05:30 PM Reporting Lab: [facility] [address] Performing Lab: [facility] [address] .INR 1.2 H 0.8-1.1 .PT 13.9 s H 9.4-12.5 Jun 21, 2024 05:24 PM [facility] LIPASE Specimen Type: PLASMA No comment entered. Ordering Provider: DELIA MARTINEZ Report Released Date/Time: Jun 21, 2024 05:30 PM Reporting Lab: [facility] [address] Performing Lab: [facility] [address] LIPASE 32 U/L <60 Jun 21, 2024 05:24 PM [facility] EXTRA GOLD GEL TUBE Specimen Type: SERUM No comment entered. Ordering Provider: DELIA MARTINEZ Report Released Date/Time: Jun 21, 2024 05:41 PM Reporting Lab: [facility] [address] Performing Lab: [facility] [address] EXTRA GOLD GEL TUBE RECEIVED Jun 21, 2024 05:24 PM [facility] COMPREHENSIVE METABOLIC PANEL+MG Specimen Type: PLASMA No comment entered. Ordering Provider: DELIA MARTINEZ Report Released Date/Time: Jun 21, 2024 05:30 PM Reporting Lab: [facility] [address] Performing Lab: [facility] [address] CREATININE 0.9 mg/dL 0.7-1.2 UREA NITROGEN 29 [...] 21, 2024 05:30 PM Reporting Lab: [facility] [address] Performing Lab: [facility] [address] WBC 21.3 H 4.0-11.0 RBC 5.48 4.60-6.20 [...] MORPHOLOGY PRESENT Jun 08, 2024 10:59 AM [facility] PROTHROMBIN TIME/INR Specimen Type: PLASMA No comment entered. Ordering Provider: MARYBETH POWELL Report Released Date/Time: May 28, 2024 09:02 AM Reporting Lab: [facility] [address] Performing Lab: [facility] [address] .INR 1.0 0.8-1.1 .PT 11.8 s 9.4-12.5 Jun 08, 2024 10:59 AM [facility] HEMOGLOBIN A1C Specimen Type: BLOOD Comment: Values [...] 28, 2024 09:02 AM Reporting Lab: [facility] [address] Performing Lab: [facility] [address] HEMOGLOBIN A1C 4.9 4.0-6.0 Jun 08, 2024 10:59 AM [facility] CBC Specimen Type: BLOOD No comment entered. Ordering Provider: MARYBETH POWELL Report Released Date/Time: May 28, 2024 09:02 AM Reporting Lab: [facility] [address] Performing Lab: [facility] [address] WBC 16.1 H 4.0-11.0 RBC 5.02 4.60-6.20 HGB 16.0 g/dL 13.5-17.9 HCT 47.1 41.0-54.0 MCV 93.8 fL 80.0-100.0 MCH 31.9 pg 27.0-33.0 MCHC 34.0 g/dL 32.0-37.5 PLT 228 150-400 MPV 10.3 fL 9.1-13.0 RDW 14.6 H 11.5-14.5 Jun 08, 2024 10:59 AM [facility] BASIC METABOLIC PANEL+MG Specimen Type: PLASMA No comment entered. Ordering Provider: MARYBETH POWELL Report Released Date/Time: May 28, 2024 09:02 AM Reporting Lab: [facility] [address] Performing Lab: [facility] [address] CREATININE 0.9 mg/dL 0.7-1.2 UREA NITROGEN 15 [...] PM 97.2 60 130/68 18 94 0 [facility] Jul 07, 2024 04:59 PM 98 86 116/64 16 96 4 [facility] Jul 07, 2024 12:24 AM 97.4 101 133/81 18 97 6 [facility] Social History: Smoking Status [...] YRS OR MORE [facility] Tobacco Use History [...] 2016 CLINICAL WARNING TIM TERAN CARLOSEDUARDO LOZANO [facility] Radiology Reports: +/- [...] VIEWS PA A ND LAT: FLACA WEAVER [id number] -1950 M Exm Date: JUL 08, 2024@10:09 Req Phys: KATELYNN PERSNO Loc: 2KG/07-08-2024@11:49 Img Loc: MAIN X-RAY Service: [place] [address] (Case 24 COMPLETE) CHEST 2 VIEWS PA AND LAT (RAD Detailed) CPT:73441 Reason for Study: Uptrending WBC, POD 5 [...] 08, 2024 Date Verified: JUL 08, 2024 Knife Sharpener E-Sig: Report: CHEST 2 VIEWS PA AND LAT HISTORY: Uptrending WBC, POD 5 COMPARISON: CT chest 11/12/2022 TECHNIQUE: Frontal and lateral views of the chest, submitted to the [place] National Teleradiology Program (NTP) for interpretation. FINDINGS: Lungs: Clear. No focal consolidation. No pulmonary edema. Pleura: No pleural effusion or pneumothorax. Mediastinum: Normal size and contour. Bones: Unremarkable. Impression: No acute cardiopulmonary disease. READING PHYSICIAN: Sarbjit Vaughn M.D. -[id number] 07/08/2024 12:[address] [facility] National Teleradiology Program [phone] (For Medical Practitioner Use Only) Attention Patients / Veterans: If you have questions or concerns about these test results, please contact your ordering provider or primary care team. Primary Interpreting Staff: RADIOLOGY,OUTSIDE SERVICE, Staff Physician / RADIOLOGY,OUTSIDE SERVICE [facility] Jul 08, 2024 10:[address] (AP) ABDOMEN/PE LVIS W CONTRAST: MEGFLACADARCI LOBO [id number] -1950 M Exm Date: JUL 08, 2024@10:00 Req Phys: KATELYNN PERSON Pat Loc: G07-08-2024@12:07 Img Loc: CT IMAGING Service: [place] [address] (Case 22 COMPLETE) CT (AP) ABDOMEN/PELVIS W CONTRAST(CT Detailed) CPT:56881 Contrast Media : Non-ionic Iodinated Reason for [...] PLASMA .CREAT EGFR(CKD-E >90 Ref: >=60 Allergies: ([place] only) TERAZOSIN (Mar 13, 2015) Report Status: Verified Date Reported: JUL 08, 2024 Date Verified: JUL 08, 2024 Knife Sharpener E-Sig: Report: CT (AP) ABDOMEN/PELVIS W CONTRAST HISTORY: POD 5, Uptrending WBC - Concern for Abscess/other infection COMPARISON: June 21, 2024 TECHNIQUE: CT abdomen and pelvis was performed after intravenous contrast. Axial, sagittal and coronal reformatted images. The study was performed at the local [place] facility and images were sent to the [place] National Teleradiology Program (NTP) for interpretation. Number [...] as noted above READING PHYSICIAN: Celestino Blanc -[id number] 07/08/2024 13:[address] [facility] [employer] Teleradiology Program [phone] (For Medical Practitioner Use Only) Attention Patients / Veterans: If you have questions or concerns about these test results, please contact your ordering provider or primary care team. Primary Interpreting Staff: RADIOLOGY,OUTSIDE SERVICE, Staff Physician / RADIOLOGY,OUTSIDE SERVICE [facility] Jun 22, 2024 11:49 AM ABSCESS DRAIN PLAC EMENT PERITONEAL (P): FLACA WEAVER [id number] -1950 M Exm Date: JUN 22, 2024@11:49 Req Phys: ANGELA HOLDEN Pat Loc: [facility]06-22-2024@17:14 Img Loc: INTERVENTIONAL RADIOLOGY Service: [place] [address] (Case [id number] COMPLETE) IR PERITONEAL/RETROPERITONEAL PER(ANI Detailed) CPT:30906 Reason for Study: diverticulitis with abscess (Case 3570 COMPLETE) IR MOD SEDATION 10-22 MIN (ANI Detailed) CPT:51964 Clinical History: [place] IS NOT under investigation for COVID-19 or is COVID-19 negative 73 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 please place abscess drain. Contact number for responsible provider who can be reached for any questions or notifications of critical findings: [phone] n/a LAST CREATININE 0.9 (06/21/24) Report Status: Verified Date Reported: JUN 22, 2024 Date Verified: JUN 22, 2024 Knife Sharpener E-Sig:/ES/LISA PENDLETON MD Report: PROCEDURES: Placement of [...] obtained. A pre-procedural Time-Out was performed per [facility] policy. The patient was placed in the supine position on the CT table. Preprocedural scan performed. The suprapubic region/lower abdominal wall was sterilely prepped and draped in the usual fashion.1% lidocaine without epinephrine was used for local anesthesia. Using real-time CT fluoroscopy, a 5 Danish Trailerpop centesis catheter was advanced into the collection in the left pelvis. A wire was coiled in the collection. The tract into the collection was dilated to accommodate the 12 Danish locking pigtail drainage catheter. There was return [...] Primary Interpreting Staff: LISA PENDLETON MD, RADIOLOGIST (Knife Sharpener) /LISA CARDONA [facility] Jun 22, 2024 11:[address] NEEDLE PLACEMEN T (P): FLACA WEAVER [id number] -1950 M Exm Date: JUN 22, 2024@11:48 Req Phys: ANGELA HOLDEN Loc: 2K/06-22-2024@17:14 Img Loc: CT IMAGING Service: [place] [address] (Case [id number] COMPLETE) CT SCAN FOR NEEDLE PLACEMENT (CT Detailed) CPT:45584 Reason for Study: l pelvic abscess drain Clinical History: Report Status: Verified Date Reported: JUN 22, 2024 Date Verified: JUN 22, 2024 Knife Sharpener E-Sig:/ES/LISA PENDLETON MD Report: PROCEDURES: Placement of [...] obtained. A pre-procedural Time-Out was performed per [facility] policy. The patient was placed in the supine position on the CT table. Preprocedural scan performed. The suprapubic region/lower abdominal wall was sterilely prepped and draped in the usual fashion.1% lidocaine without epinephrine was used for local anesthesia. Using real-time CT fluoroscopy, a 5 Danish KRAFTWERKesis catheter was advanced into the collection in the left pelvis. A wire was coiled in the collection. The tract into the collection was dilated to accommodate the 12 Danish locking pigtail drainage catheter. There was return [...] resection on 07/03/2024. Primary Interpreting Staff: LISA PEDNLETON MD, RADIOLOGIST (Knife Sharpener) /JRLISA [facility] Jun 21, 2024 06:[address] (AP) ABDOMEN/PE LVIS (P): FLACA WEAVER [id number] -1950 M Exm Date: JUN 21, 2024@18:09 Req Phys: MANADELIAZENAIDA Patel Loc: [facility] EMERGENCY DEPT WALK-IN (Re Img Loc: CT IMAGING Service: [place] [address] (Case [id number] COMPLETE) CT (AP) ABDOMEN/PELVIS W CONTRAST(CT Detailed) CPT:65110 Contrast Media : Non-ionic Iodinated Reason for [...] PLASMA .CREAT EGFR(CKD-E >90 Ref: >=60 Allergies: ([place] only) TERAZOSIN (Mar 13, 2015) Defer to [...] 21, 2024 Date Verified: JUN 21, 2024 Knife Sharpener E-Sig:/ALEXI/CARLOS A CUNNINGHAM DO Report: EXAMINATION: CT [...] Interpreting Staff: CARLOS A CUNNINGHAM DO, RADIOLOGIST (Knife Sharpener) /CARLOS A ROWELL [facility] [...] Reporting Lab: [facility] [CLIA# [id number]] [place] [address] - - - - - - - [...] - PATHOLOGY REPORT Accession No. [id number] - - - - - - - [...] - PATHOLOGY REPORT Accession No. [id number] - - - - - - - [...] Second circumferential surgical margin, en face; E-F: [employer] diverticula; G: [employer] section of mesentery; H: Random registered representative section of additional adipose tissue fragment. [...] One colonic tissue ring, bisected transversely. SS. (D[facility]: Microscopic examination performed. DIAGNOSIS: 1. Colon, sigmoid, sigmoidectomy-- - Diverticulosis with perforation and focal abscess formation 2. Colon, anastomotic rings, excision-- - Viable colonic mucosa without diagnostic abnormality /alexi/ EDUARDO PALOMARES MD STAFF PATHOLOGIST Signed Jul 06, 2024@10:40 Performing Laboratory: Surgical Pathology Report Performed By: [facility] [CLIA# [id number]] [place] [address] $FTR - - - - - - [...] - - FLACA WEAVER STANDARD FORM 515 ID:[id number] SEX:M :1950 AGE: 73 LOC:[id number] ADM:Jun DX:DIVERTICULITIS PCP: Jatinder Cabrera /alexi/ EDUARDO PALOMARES MD STAFF PATHOLOGIST Signed: 07/06/2024 10:40 EDUARDO PALOMARES [facility] Jun 22, 2024 01:15 PM LR MICROBIOLOGY RE PORT: Reporting Lab: [facility] [CLIA# [id number]] [place] [address] Accession [UID]: [id number] [[id number]] Received: Jun 22, 2024@13:38 Collection sample: FLUID Collection date: Jun 22, 2024 13:15 Provider: ANGELA HOLDEN Comment on specimen: LLQ ABSCESS, RECEIVED IN ANAEROBIC TRANSPORT VIAL Test(s) ordered: GRAM STAIN.................... completed: Jun 22, 2024 15:03 CULTURE & SUSCEPTIBILITY...... completed: Jun 25, 2024 * BACTERIOLOGY FINAL REPORT => Jun 25, 2024 10:56 TECH CODE: [id number] GRAM STAIN: DIRECT SMEAR of specimen before [...] Performed By: [facility] [CLIA# [id number]] [place] [address] [facility] Jun 22, 2024 01:15 PM LR MICROBIOLOGY RE PORT: Reporting Lab: [facility] [CLIA# [id number]] [place] [address] Accession [UID]: [id number] [[id number]] Received: Jun 22, 2024@13:38 Collection sample: FLUID Collection date: Jun 22, 2024 13:15 Provider: ANGELA HOLDEN Comment on specimen: LLQ ABSCESS, RECEIVED IN ANAEROBIC TRANSPORT VIAL Test(s) ordered: ANAEROBIC CULTURE............. completed: Jun 28, 2024 * BACTERIOLOGY FINAL REPORT => Jun 28, 2024 10:08 TECH CODE: [id number] CULTURE RESULTS: HEAVY GROWTH MIXED ANAEROBES Comment: [...] Performed By: [facility] [CLIA# [id number]] [place] [address] [facility] Jun 21, 2024 06:12 PM LR MICROBIOLOGY RE PORT: Reporting Lab: [facility] [CLIA# [id number]] [place] [address] Accession [UID]: [id number] [[id number]] Received: Jun 21, 2024@18:12 Collection sample: BLOOD [...] Performed By: [facility] [CLIA# [id number]] [place] [address] [facility] Jun 21, 2024 06:11 PM LR MICROBIOLOGY RE PORT: Reporting Lab: [facility] [CLIA# [id number]] [place] [address] Accession [UID]: [id number]] Received: Jun 21, 2024@18:11 Collection sample: BLOOD Collection date: Jun 21, 2024 18:11 Provider: DELIA MRATINEZ Comment on specimen: RAC, RECEIVED 2 BLOOD CULTURE BOTTLES Test(s) ordered: CULTURE & SUSCEPTIBILITY...... completed: Jun 27, 2024 * BACTERIOLOGY FINAL REPORT => Jun 27, 2024 14:14 TECH CODE: [id number] CULTURE RESULTS: NO GROWTH 5 DAYS Bacteriology Remark(s): THIS REPORT IS FINAL =--=--=--=--=--=--=--=--=--= --=--=--=--=--=--=--=--=--=- -=--=--=--=--=--=--=-- Performing Laboratory: Bacteriology Report Performed By: [facility] [CLIA# [id number]] [place] [address] [facility] Jun 08, 2024 11:00 AM LR MICROBIOLOGY RE PORT: Reporting Lab: [facility] [CLIA# [id number]] [place] [address] Accession [UID]: [id number] [[id number]] Received: Jun 08, 2024@11:00 Collection sample: URINE Collection date: Jun 08, 2024 11:00 Provider: MARYBETH POWELL Comment on specimen: urine Test(s) ordered: CULTURE & SUSCEPTIBILITY...... completed: Jun 09, 2024 * BACTERIOLOGY FINAL REPORT => Jun 09, 2024 19:12 TECH CODE: [id number] CULTURE RESULTS: ESCHERICHIA COLI - Quantity: >100,000 [...] Performed By: [facility] [CLIA# [id number]] [address] [place] [address] [facility] Encounter Notes: All associated encounter notes This section contains the clinical notes associated to the Encounter. Date/Time Encounter Note(s) Provider Source Jul 07, 2024 01:00 AM CRITICAL CARE UNIT NOTE: LOCAL TITLE: ICCA INPATIENT FLOWSHEET STANDARD TITLE: CRITICAL CARE UNIT NOTE DATE OF NOTE: JUL 07, 2024@01:00 ENTRY DATE: JUL 08, 2024@14:39:50 AUTHOR: KELLY WINKLER EXP COSIGNER: URGENCY: STATUS: COMPLETED This is a place aranda only. Please see [employer] to view document. /es/ [employer] SYSTEM ICU DOCUMENT IMPORT Signed: 07/08/2024 14:39 KELLY WINKLER [facility] Jul 07, 2024 01:00 AM CRITICAL CARE UNIT NOTE: LOCAL TITLE: ICCA RESPIRATORY THERAPY FLOWSHEET STANDARD TITLE: CRITICAL CARE UNIT NOTE DATE OF NOTE: JUL 07, 2024@01:00 ENTRY DATE: JUL 08, 2024@15:07:24 AUTHOR: KELLY WINKLER EXP COSIGNER: URGENCY: STATUS: COMPLETED This is a place aranda only. Please see [employer] to view document. /es/ [employer] SYSTEM ICU DOCUMENT IMPORT Signed: 07/08/2024 15:07 PETERSONRelypsa [facility]
--- OUTSIDE RECORDS SUMMARY | 2024-07-16 07:21 | XMS_ITS ---
[place] DAILY HOSPITALIZATION DATA [facility] Encounter Summary Created on: July 16, 2024 FLACA WEAVER : 1950 Sex: Male Author Name [facility] [facility] [place] Address [address] [place] [address] Care Team Providers Care Application Helper Name Role Phone JATINDER CABRERA Primary [...] PART A Sep 29, 2016 PART A [id number] [phone] JUDY WEAVER PATIENT Selected Encounter This section includes the information on record at [place] for the Encounter. Date/Time Encounter Type Encounter Description Reason Pro vider Source Jul 09, 2024 09:20 PM Inpatient Visit DAILY HOSPITALIZATION DATA [facility]ÍREZ Alex Encounter Template Text not used by [...] 13, 2024 08:15 AM AMBULATORY - NONE [facility] Active, Pending, and Scheduled Orders This section [...] - LAB BLOOD SP [facility] Jun 08, 2024 09:57 AM Laboratory - Chemi stry Order URINALYSIS URINE WC ONCE [facility] Jun 12, 2024 12:00 AM Laboratory - Chemi stry Order BNP PLASMA SP ONCE [facility] Jun 21, 2024 05:45 PM Laboratory - Blood Bank Order TYPE & SCREEN - LAB BLOOD WC [facility] Jul 03, 2024 12:00 AM Laboratory - Blood Bank Order TYPE & SCREEN - LAB BLOOD [facility] Jul 16, 2024 12:00 AM Laboratory - Chemi stry Order CBC BLOOD SP ONCE [facility] Jul 17, 2024 12:00 AM Laboratory - Chemi stry Order BASIC METABOLIC PANEL+MG PLASMA SP ONCE [facility] Lab Results: +/- 30 [...] Range Comment Jul 10, 2024 07:16 AM [facility] PHOSPHORUS Specimen Type: PLASMA No comment entered. Ordering Provider: JUANCARLOS ECHOLS S Report Released Date/Time: Jul 09, 2024 12:23 PM Reporting Lab: [facility] [address] Performing Lab: [facility] [address] PHOSPHORUS 3.0 mg/dL 2.3-4.3 Jul 10, 2024 07:16 AM [facility] BASIC METABOLIC PANEL+MG Specimen Type: PLASMA No comment entered. Ordering Provider: JUANCARLOS ECHOLS S Report Released Date/Time: Jul 09, 2024 12:23 PM Reporting Lab: [facility] [address] Performing Lab: [facility] [address] CREATININE 0.7 mg/dL 0.7-1.2 UREA NITROGEN 27 mg/dL H 8-26 GLUCOSE 104 mg/dL H 70-100 SODIUM 133 mmol/L L 136-145 POTASSIUM 4.3 mmol/L 3.5-5.1 CHLORIDE 102 mmol/L 98-107 CO2 19 mmol/L L 22-29 CALCIUM 10.1 mg/dL 8.4-10.2 MAGNESIUM 1.9 mg/dL 1.6-2.6 ANION GAP 12 mmol/L 5-15 .CREAT EGFR(CKD-EPI) >90 >60 Jul 10, 2024 07:15 AM [facility] CBC Specimen Type: BLOOD No comment entered. Ordering Provider: JUANCARLOS ECHOLS Report Released Date/Time: Jul 09, 2024 12:23 PM Reporting Lab: [facility] [address] Performing Lab: [facility] [address] WBC 18.8 H 4.0-11.0 RBC 5.08 4.60-6.20 HGB 15.9 g/dL 13.5-17.9 HCT 46.8 41.0-54.0 MCV 92.1 fL 80.0-100.0 MCH 31.3 pg 27.0-33.0 MCHC 34.0 g/dL 32.0-37.5 PLT 479 H 150-400 MPV 10.2 fL 9.1-13.0 RDW 13.7 11.5-14.5 Jul 09, 2024 07:08 AM [facility] CBC Specimen Type: BLOOD No comment entered. Ordering Provider: QUYNH WEISS Report Released Date/Time: Jul 08, 2024 06:18 PM Reporting Lab: [facility] [address] Performing Lab: [facility] [address] WBC 15.3 H 4.0-11.0 RBC 4.91 4.60-6.20 HGB 15.1 g/dL 13.5-17.9 HCT 45.7 41.0-54.0 MCV 93.1 fL 80.0-100.0 MCH 30.8 pg 27.0-33.0 MCHC 33.0 g/dL 32.0-37.5 PLT 443 H 150-400 MPV 10.0 fL 9.1-13.0 RDW 13.5 11.5-14.5 Jul 08, 2024 10:50 AM [facility] URINALYSIS Specimen Type: URINE No comment entered. Ordering Provider: KATELYNN PERSON Report Released Date/Time: Jul 08, 2024 08:41 AM Reporting Lab: [facility] [address] Performing Lab: [facility] [address] URINE COLOR YELLOW SPECIFIC GRAVITY >1.050 H [...] NEGATIVE NEGATIVE Jul 08, 2024 09:54 AM [facility] CBC Specimen Type: BLOOD Comment: Specimen received in Lab at: 0952 Ordering Provider: JUANCARLOS ECHOLS Report Released Date/Time: Jul 07, 2024 04:49 PM Reporting Lab: [facility] [address] Performing Lab: [facility] [address] WBC 17.5 H 4.0-11.0 RBC 4.88 4.60-6.20 HGB 14.9 g/dL 13.5-17.9 HCT 45.7 41.0-54.0 MCV 93.6 fL 80.0-100.0 MCH 30.5 pg 27.0-33.0 MCHC 32.6 g/dL 32.0-37.5 PLT 472 H 150-400 MPV 10.2 fL 9.1-13.0 RDW 13.7 11.5-14.5 Jul 08, 2024 09:54 AM [facility] PHOSPHORUS Specimen Type: PLASMA Comment: Specimen received in Lab at: 0952 Ordering Provider: BALAJADIA,MAR IA S Report Released Date/Time: Jul 07, 2024 04:49 PM Reporting Lab: [facility] [address] Performing Lab: [facility] [address] PHOSPHORUS 2.6 mg/dL 2.3-4.3 Jul 08, 2024 09:54 AM [facility] BASIC METABOLIC PANEL+MG Specimen Type: PLASMA Comment: Specimen received in Lab at: 0952 Ordering Provider: JUANCARLOS ECHOLS S Report Released Date/Time: Jul 07, 2024 04:49 PM Reporting Lab: [facility] [address] Performing Lab: [facility] [address] CREATININE 0.9 mg/dL 0.7-1.2 UREA NITROGEN 26 mg/dL 8-26 GLUCOSE 128 mg/dL H 70-100 SODIUM 134 mmol/L L 136-145 POTASSIUM 3.4 mmol/L L 3.5-5.1 CHLORIDE 100 mmol/L 98-107 CO2 24 mmol/L 22-29 CALCIUM 9.8 mg/dL 8.4-10.2 MAGNESIUM 1.8 mg/dL 1.6-2.6 ANION GAP 10 mmol/L 5-15 .CREAT EGFR(CKD-EPI) >90 >60 Jul 07, 2024 02:00 PM [facility] C DIFF PANEL Specimen Type: FECES No comment entered. Ordering Provider: JEVON ZAZUETA Report Released Date/Time: Jul 07, 2024 12:26 PM Reporting Lab: [facility] [address] Performing Lab: [facility] [address] C DIFF TOX B GENE PCR NEGATIVE Negative Jul 07, 2024 07:41 AM [facility] PHOSPHORUS Specimen Type: PLASMA No comment entered. Ordering Provider: JEVON ZAZUETA Report Released Date/Time: Jul 06, 2024 03:44 PM Reporting Lab: [facility] [address] Performing Lab: [facility] [address] PHOSPHORUS 3.1 mg/dL 2.3-4.3 Jul 07, 2024 07:41 AM [facility] BASIC METABOLIC PANEL+MG Specimen Type: PLASMA No comment entered. Ordering Provider: JEVON ZAZUETA Report Released Date/Time: Jul 06, 2024 03:44 PM Reporting Lab: [facility] [address] Performing Lab: [facility] [address] CREATININE 0.9 mg/dL 0.7-1.2 UREA NITROGEN 20 mg/dL 8-26 GLUCOSE 157 mg/dL H 70-100 SODIUM 136 mmol/L 136-145 POTASSIUM 3.7 mmol/L 3.5-5.1 CHLORIDE 102 mmol/L 98-107 CO2 21 mmol/L L 22-29 CALCIUM 9.8 mg/dL 8.4-10.2 MAGNESIUM 1.9 mg/dL 1.6-2.6 ANION GAP 13 mmol/L 5-15 .CREAT EGFR(CKD-EPI) >90 >60 Jul 07, 2024 07:40 AM [facility] CBC Specimen Type: BLOOD No comment entered. Ordering Provider: JEVON ZAZUETA Report Released Date/Time: Jul 06, 2024 03:44 PM Reporting Lab: [facility] [address] Performing Lab: [facility] [address] WBC 21.2 H 4.0-11.0 RBC 5.09 4.60-6.20 HGB 15.9 g/dL 13.5-17.9 HCT 48.3 41.0-54.0 MCV 94.9 fL 80.0-100.0 MCH 31.2 pg 27.0-33.0 MCHC 32.9 g/dL 32.0-37.5 PLT 500 H 150-400 MPV 10.3 fL 9.1-13.0 RDW 13.6 11.5-14.5 Jul 06, 2024 07:21 AM [facility] CBC Specimen Type: BLOOD No comment entered. Ordering Provider: JEVON ZAZUETA Report Released Date/Time: Jul 05, 2024 01:22 PM Reporting Lab: [facility] [address] Performing Lab: [facility] [address] WBC 18.0 H 4.0-11.0 RBC 4.83 4.60-6.20 HGB 14.6 g/dL 13.5-17.9 HCT 45.5 41.0-54.0 MCV 94.2 fL 80.0-100.0 MCH 30.2 pg 27.0-33.0 MCHC 32.1 g/dL 32.0-37.5 PLT 368 150-400 MPV 10.4 fL 9.1-13.0 RDW 13.6 11.5-14.5 Jul 06, 2024 07:21 AM [facility] PHOSPHORUS Specimen Type: PLASMA No comment entered. Ordering Provider: JEVON ZAZUETA Report Released Date/Time: Jul 05, 2024 01:22 PM Reporting Lab: [facility] [address] Performing Lab: [facility] [address] PHOSPHORUS 3.6 mg/dL 2.3-4.3 Jul 06, 2024 07:21 AM [facility] BASIC METABOLIC PANEL+MG Specimen Type: PLASMA No comment entered. Ordering Provider: JEVON ZAZUETA Report Released Date/Time: Jul 05, 2024 01:22 PM Reporting Lab: [facility] [address] Performing Lab: [facility] [address] CREATININE 0.7 mg/dL 0.7-1.2 UREA NITROGEN 12 mg/dL 8-26 GLUCOSE 108 mg/dL H 70-100 SODIUM 138 mmol/L 136-145 POTASSIUM 3.4 mmol/L L 3.5-5.1 CHLORIDE 104 mmol/L 98-107 CO2 20 mmol/L L 22-29 CALCIUM 9.3 mg/dL 8.4-10.2 MAGNESIUM 1.9 mg/dL 1.6-2.6 ANION GAP 14 mmol/L 5-15 .CREAT EGFR(CKD-EPI) >90 >60 Jul 05, 2024 07:17 AM [facility] MAGNESIUM Specimen Type: PLASMA No comment entered. Ordering Provider: JUANCARLOS ECHOLS S Report Released Date/Time: Jul 04, 2024 09:39 AM Reporting Lab: [facility] [address] Performing Lab: [facility] [address] MAGNESIUM 2.0 mg/dL 1.6-2.6 Jul 05, 2024 07:17 AM [facility] PHOSPHORUS Specimen Type: PLASMA No comment entered. Ordering Provider: JUANCARLOS ECHOLS S Report Released Date/Time: Jul 04, 2024 09:39 AM Reporting Lab: [facility] [address] Performing Lab: [facility] [address] PHOSPHORUS 2.0 mg/dL L 2.3-4.3 Jul 05, 2024 07:17 AM [facility] BASIC METABOLIC PANEL+MG Specimen Type: PLASMA No comment entered. Ordering Provider: JUANCARLOS ECHOLS S Report Released Date/Time: Jul 04, 2024 09:39 AM Reporting Lab: [facility] [address] Performing Lab: [facility] [address] CREATININE 0.7 mg/dL 0.7-1.2 UREA NITROGEN 12 mg/dL 8-26 GLUCOSE 84 mg/dL 70-100 SODIUM 135 mmol/L L 136-145 POTASSIUM 3.8 mmol/L 3.5-5.1 CHLORIDE 104 mmol/L 98-107 CO2 24 mmol/L 22-29 CALCIUM 9.3 mg/dL 8.4-10.2 MAGNESIUM 2.0 mg/dL 1.6-2.6 ANION GAP 7 mmol/L 5-15 .CREAT EGFR(CKD-EPI) >90 >60 Jul 05, 2024 07:16 AM [facility] CBC Specimen Type: BLOOD No comment entered. Ordering Provider: JUANCARLOS ECHOLS S Report Released Date/Time: Jul 04, 2024 09:39 AM Reporting Lab: [facility] [address] Performing Lab: [facility] [address] WBC 18.3 H 4.0-11.0 RBC 4.49 L 4.60-6.20 HGB 14.1 g/dL 13.5-17.9 HCT 43.4 41.0-54.0 MCV 96.7 fL 80.0-100.0 MCH 31.4 pg 27.0-33.0 MCHC 32.5 g/dL 32.0-37.5 PLT 317 150-400 MPV 10.0 fL 9.1-13.0 RDW 13.9 11.5-14.5 Jul 04, 2024 07:17 AM [facility] BASIC METABOLIC PANEL+MG Specimen Type: PLASMA No comment entered. Ordering Provider: GABINO CAMERON Report Released Date/Time: Jul 03, 2024 06:31 PM Reporting Lab: [facility] [address] Performing Lab: [facility] [address] CREATININE 0.7 mg/dL 0.7-1.2 UREA NITROGEN 16 mg/dL 8-26 GLUCOSE 129 mg/dL H 70-100 SODIUM 137 mmol/L 136-145 POTASSIUM 3.7 mmol/L 3.5-5.1 CHLORIDE 107 mmol/L 98-107 CO2 22 mmol/L 22-29 CALCIUM 9.0 mg/dL 8.4-10.2 MAGNESIUM 1.9 mg/dL 1.6-2.6 ANION GAP 8 mmol/L 5-15 .CREAT EGFR(CKD-EPI) >90 >60 Jul 04, 2024 07:17 AM [facility] PHOSPHORUS Specimen Type: PLASMA No comment entered. Ordering Provider: GABINO CAMERON Report Released Date/Time: Jul 03, 2024 06:31 PM Reporting Lab: [facility] [address] Performing Lab: [facility] [address] PHOSPHORUS 2.8 mg/dL 2.3-4.3 Jul 04, 2024 07:16 AM [facility] CBC Specimen Type: BLOOD No comment entered. Ordering Provider: GABINO CAMERON Report Released Date/Time: Jul 03, 2024 06:31 PM Reporting Lab: [facility] [address] Performing Lab: [facility] [address] WBC 20.6 H 4.0-11.0 RBC 4.63 4.60-6.20 HGB 14.2 g/dL 13.5-17.9 HCT 43.4 41.0-54.0 MCV 93.7 fL 80.0-100.0 MCH 30.7 pg 27.0-33.0 MCHC 32.7 g/dL 32.0-37.5 PLT 329 150-400 MPV 10.4 fL 9.1-13.0 RDW 13.8 11.5-14.5 Jul 04, 2024 07:16 AM [facility] CBC & DIFF Specimen Type: BLOOD Comment: Manual Differential Performed Ordering Provider: GABINO CAMERON Report Released Date/Time: Jul 03, 2024 06:31 PM Reporting Lab: [facility] [address] Performing Lab: [facility] [address] WBC 20.6 H 4.0-11.0 RBC 4.63 4.60-6.20 [...] MORPHOLOGY PRESENT Jul 04, 2024 07:15 AM [facility] BNP Specimen Type: PLASMA No comment entered. Ordering Provider: GABINO CAMERON Report Released Date/Time: Jul 03, 2024 06:31 PM Reporting Lab: [facility] [address] Performing Lab: [facility] [address] BNP 292 pg/mL H <99 Jul 03, 2024 10:32 PM [facility] FINGERSTICK GLUCOSE Specimen Type: BLOOD Comment: Save Result Nurse Notified Ordering Provider: KATELYNN PERSON Report Released Date/Time: Jul 03, 2024 10:50 PM Reporting Lab: [facility] [address] Performing Lab: [facility] [address] FINGERSTICK GLUCOSE 126 mg/dL H 70-100 Jul 03, 2024 05:33 PM [facility] FINGERSTICK GLUCOSE Specimen Type: BLOOD Comment: Save Result Nurse Notified Ordering Provider: KATELYNN PERSON Report Released Date/Time: Jul 03, 2024 05:46 PM Reporting Lab: [facility] [address] Performing Lab: [facility] [address] FINGERSTICK GLUCOSE 141 mg/dL H 70-100 Jul 03, 2024 02:31 PM [facility] POC ABG/ELECTROLYTES Specimen Type: ARTERIAL BLOOD Comment: FIO2 = 97% Patient Temp: 36.0 C Sample Type = ARTERIAL Ordering Provider: MAZIN ARREDONDO Report Released Date/Time: Jul 03, 2024 01:48 PM Reporting Lab: [facility] [address] Performing Lab: [facility] [address] POC PH 7.387 7.35-7.45 POC PCO2 34.4 [...] H 80.0-105.0 Jul 03, 2024 01:05 PM [facility] POC ABG/ELECTROLYTES Specimen Type: ARTERIAL BLOOD Comment: FIO2 = 53% Patient Temp: 36.2 C Sample Type = ARTERIAL Ordering Provider: MAZIN ARREDONDO Report Released Date/Time: Jul 03, 2024 01:48 PM Reporting Lab: [facility] [address] Performing Lab: [facility] [address] POC PH 7.280 L 7.35-7.45 POC PCO2 [...] mm[Hg] 80.0-105.0 Jul 03, 2024 06:15 AM [facility] URINALYSIS Specimen Type: URINE No comment entered. Ordering Provider: MARYBETH POWELL Report Released Date/Time: Jun 12, 2024 04:01 PM Reporting Lab: [facility] [address] Performing Lab: [facility] [address] URINE COLOR YELLOW SPECIFIC GRAVITY 1.031 1.003-1.03 [...] 250 NEGATIVE Jul 03, 2024 06:13 AM [facility] CBC Specimen Type: BLOOD No comment entered. Ordering Provider: MARYBETH POWELL Report Released Date/Time: Jun 12, 2024 03:59 PM Reporting Lab: [facility] [address] Performing Lab: [facility] [address] WBC 15.8 H 4.0-11.0 RBC 5.11 4.60-6.20 HGB 16.1 g/dL 13.5-17.9 HCT 49.1 41.0-54.0 MCV 96.1 fL 80.0-100.0 MCH 31.5 pg 27.0-33.0 MCHC 32.8 g/dL 32.0-37.5 PLT 357 150-400 MPV 9.8 fL 9.1-13.0 RDW 13.7 11.5-14.5 Jun 24, 2024 09:50 AM [facility] BASIC METABOLIC PANEL+MG Specimen Type: PLASMA Comment: Specimen received in Lab at: 0948 Ordering Provider: JEVON ZAZUETA Report Released Date/Time: Jun 23, 2024 06:07 PM Reporting Lab: [facility] [address] Performing Lab: [facility] [address] CREATININE 0.8 mg/dL 0.7-1.2 UREA NITROGEN 13 mg/dL 8-26 GLUCOSE 135 mg/dL H 70-100 SODIUM 135 mmol/L L 136-145 POTASSIUM 3.6 mmol/L 3.5-5.1 CHLORIDE 103 mmol/L 98-107 CO2 24 mmol/L 22-29 CALCIUM 9.2 mg/dL 8.4-10.2 MAGNESIUM 1.9 mg/dL 1.6-2.6 ANION GAP 8 mmol/L 5-15 .CREAT EGFR(CKD-EPI) >90 >60 Jun 24, 2024 09:50 AM [facility] CBC Specimen Type: BLOOD Comment: Specimen received in Lab at: 0948 Ordering Provider: JEVON ZAZUETA Report Released Date/Time: Jun 23, 2024 06:07 PM Reporting Lab: [facility] [address] Performing Lab: [facility] [address] WBC 15.5 H 4.0-11.0 RBC 4.93 4.60-6.20 HGB 15.2 g/dL 13.5-17.9 HCT 46.5 41.0-54.0 MCV 94.3 fL 80.0-100.0 MCH 30.8 pg 27.0-33.0 MCHC 32.7 g/dL 32.0-37.5 PLT 223 150-400 MPV 11.4 fL 9.1-13.0 RDW 13.9 11.5-14.5 Jun 23, 2024 07:52 AM [facility] COMPREHENSIVE METABOLIC PANEL+MG Specimen Type: PLASMA No comment entered. Ordering Provider: JEVON ZAZUETA Report Released Date/Time: Jun 22, 2024 05:51 PM Reporting Lab: [facility] [address] Performing Lab: [facility] [address] CREATININE 0.7 mg/dL 0.7-1.2 UREA NITROGEN 16 [...] >90 >60 Jun 23, 2024 07:52 AM [facility] CBC & DIFF Specimen Type: BLOOD Comment: Automated Differential Performed Ordering Provider: JEVON ZAZUETA Report Released Date/Time: Jun 22, 2024 05:51 PM Reporting Lab: [facility] [address] Performing Lab: [facility] [address] WBC 14.9 H 4.0-11.0 RBC 5.09 4.60-6.20 [...] 0.1 0.0-0.1 Jun 22, 2024 06:10 PM [facility] CBC Specimen Type: BLOOD No comment entered. Ordering Provider: JEVON ZAZUETA Report Released Date/Time: Jun 22, 2024 05:51 PM Reporting Lab: [facility] [address] Performing Lab: [facility] [address] WBC 16.9 H 4.0-11.0 RBC 5.28 4.60-6.20 HGB 16.9 g/dL 13.5-17.9 HCT 50.4 41.0-54.0 MCV 95.5 fL 80.0-100.0 MCH 32.0 pg 27.0-33.0 MCHC 33.5 g/dL 32.0-37.5 PLT 223 150-400 MPV 10.9 fL 9.1-13.0 RDW 14.0 11.5-14.5 Jun 22, 2024 06:10 PM [facility] COMPREHENSIVE METABOLIC PANEL+MG Specimen Type: PLASMA No comment entered. Ordering Provider: JEVON ZAZUETA Report Released Date/Time: Jun 22, 2024 05:51 PM Reporting Lab: [facility] [address] Performing Lab: [facility] [address] CREATININE 0.7 mg/dL 0.7-1.2 UREA NITROGEN 17 [...] >90 >60 Jun 21, 2024 06:48 PM [facility] URINALYSIS Specimen Type: URINE No comment entered. Ordering Provider: DELIA MARTINEZ Report Released Date/Time: Jun 21, 2024 05:45 PM Reporting Lab: [facility] [address] Performing Lab: [facility] [address] URINE COLOR YELLOW SPECIFIC GRAVITY 1.041 H [...] 500 NEGATIVE Jun 21, 2024 05:34 PM [facility] POC CREATININE Specimen Type: BLOOD No comment entered. Ordering Provider: DELIA MARTINEZ Report Released Date/Time: Jun 21, 2024 06:07 PM Reporting Lab: [facility] [address] Performing Lab: [facility] [address] POC CREATININE 1.1 mg/dL 0.6-1.3 Jun 21, 2024 05:30 PM [facility] POC ABG/LACTATE Specimen Type: VENOUS BLOOD No comment entered. Ordering Provider: DELIA MARTINEZ Report Released Date/Time: Jun 21, 2024 06:07 PM Reporting Lab: [facility] [address] Performing Lab: [facility] [address] POC PH 7.470 H 7.31-7.41 POC PCO2 31.2 mm[Hg] L 41.00-51 .0 0 POC PO2 46 mm[Hg] H 35.0-40.0 POC TCO2 24 mmol/L 24.0-29.0 POC HCO3 22.7 mmol/L L 23.0-28.0 POC BE ECT -1 mmol/L POC SO2 85 H 70-75 POC LACTATE 1.85 mmol/L 0.90-1.70 Jun 21, 2024 05:24 PM [facility] PROTHROMBIN TIME/INR Specimen Type: PLASMA No comment entered. Ordering Provider: DELIA MARTINEZ Report Released Date/Time: Jun 21, 2024 05:30 PM Reporting Lab: [facility] [address] Performing Lab: [facility] [address] .INR 1.2 H 0.8-1.1 .PT 13.9 s H 9.4-12.5 Jun 21, 2024 05:24 PM [facility] LIPASE Specimen Type: PLASMA No comment entered. Ordering Provider: DELIA MARTINEZ Report Released Date/Time: Jun 21, 2024 05:30 PM Reporting Lab: [facility] [address] Performing Lab: [facility] [address] LIPASE 32 U/L <60 Jun 21, 2024 05:24 PM [facility] EXTRA GOLD GEL TUBE Specimen Type: SERUM No comment entered. Ordering Provider: DELIA MARTINEZ Report Released Date/Time: Jun 21, 2024 05:41 PM Reporting Lab: [facility] [address] Performing Lab: [facility] [address] EXTRA GOLD GEL TUBE RECEIVED Jun 21, 2024 05:24 PM [facility] COMPREHENSIVE METABOLIC PANEL+MG Specimen Type: PLASMA No comment entered. Ordering Provider: DELIA MARTINEZ Report Released Date/Time: Jun 21, 2024 05:30 PM Reporting Lab: [facility] [address] Performing Lab: [facility] [address] CREATININE 0.9 mg/dL 0.7-1.2 UREA NITROGEN 29 [...] mg/dL <0.5 Jun 21, 2024 05:24 PM [facility] CBC & DIFF Specimen Type: BLOOD Comment: Manual Differential Performed Ordering Provider: DELIA MARTINEZ Report Released Date/Time: Jun 21, 2024 05:30 PM Reporting Lab: [facility] [address] Performing Lab: [facility] [address] WBC 21.3 H 4.0-11.0 RBC 5.48 4.60-6.20 [...] Height Weight Body Mass Index Source Jul 09, 2024 11:47 PM 97.9 59 151/73 18 [facility] Jul 09, 2024 04:39 PM 97.5 55 120/65 18 97 0 [facility] Jul 09, 2024 09:36 AM 98.1 67 134/78 16 99 1 [facility] Jul 09, 2024 05:09 AM 1 [facility] Jul 09, 2024 03:28 AM 5 [facility] Social History: Smoking Status (Most [...] 15 YRS OR MORE [facility] Tobacco Use History This section includes a history of the smoking, or tobacco-related health factors, that were collected on or before the date of the Encounter. The data comes from the [place] facility where the Encounter took place. Date/Time Smoking Status/Tobacco Use Comment F acility May 15, 2024 08:30 AM VA-TOBACCO QUIT 15 YRS OR MORE [facility] May 06, 2023 11:30 AM VA-TOBACCO FORMER USER [facility] May 06, 2023 11:30 AM [...] VIEWS PA A ND LAT: MEGFLACA YAMIL [id number] -1950 M Exm Date: JUL 08, 2024@10:09 Req Phys: KATELYNN PERSON Pat Loc: [facility]/07-08-2024@11:49 Img Loc: MAIN X-RAY Service: [place] [address] (Case 24 COMPLETE) CHEST 2 VIEWS PA AND LAT (RAD Detailed) CPT:69897 Reason for Study: Uptrending WBC, POD 5 Clinical History: [place] IS NOT under investigation for COVID-19 or is COVID-19 negative POD 5, work up for uptrending wbc Responsible provider name and phone number to notify for critical findings if other than user placing the order and pager listed below: User placing orders pager: Katelynn Person LAST [employer]ATININE 0.9 (07/07/24) Report Status: Verified Date Reported: JUL 08, 2024 Date Verified: JUL 08, 2024 Clearing Inspector E-Sig: Report: CHEST 2 VIEWS PA AND LAT HISTORY: Uptrending WBC, POD 5 COMPARISON: CT chest 11/12/2022 TECHNIQUE: Frontal and lateral views of the chest, submitted to the [place] National Teleradiology Program (NTP) for interpretation. FINDINGS: Lungs: Clear. No focal consolidation. No pulmonary edema. Pleura: No pleural effusion or pneumothorax. Mediastinum: Normal size and contour. Bones: Unremarkable. Impression: No acute cardiopulmonary disease. READING PHYSICIAN: Sarbjit Vaughn M.D. -[id number] 07/08/2024 12:46 EST [facility] National Teleradiology Program [phone] (For Medical Practitioner Use Only) Attention Patients / Veterans: If you have questions or concerns about these test results, please contact your ordering provider or primary care team. Primary Interpreting Staff: RADIOLOGY,OUTSIDE SERVICE, Staff Physician / RADIOLOGY,OUTSIDE SERVICE [facility] Jul 08, 2024 10:[address] (AP) ABDOMEN/PE LVIS W CONTRAST: MEGFLACADARCI LOBO [id number] -1950 M Exm Date: JUL 08, 2024@10:00 Req Phys: KATELYNN PERSON [facility] Loc: [facility]/07-08-2024@12:07 Img Loc: CT IMAGING Service: [place] [address] (Case 22 COMPLETE) CT (AP) ABDOMEN/PELVIS W CONTRAST(CT Detailed) CPT:99149 Contrast Media : Non-ionic Iodinated Reason for [...] PLASMA .CREAT EGFR(CKD-E >90 Ref: >=60 Allergies: ([place] only) TERAZOSIN (Mar 13, 2015) Report Status: Verified Date Reported: JUL 08, 2024 Date Verified: JUL 08, 2024 Clearing Inspector E-Sig: Report: CT (AP) ABDOMEN/PELVIS W CONTRAST HISTORY: POD 5, Uptrending WBC - Concern for Abscess/other infection COMPARISON: June 21, 2024 TECHNIQUE: CT abdomen and pelvis was performed after intravenous contrast. Axial, sagittal and coronal reformatted images. The study was performed at the local [place] facility and images were sent to the [place] [employer] [facility] [facility] (NTP) for interpretation. Number [...] as noted above READING PHYSICIAN: Celestino Blanc -[id number] 07/08/2024 13:04 EST [facility] [phone] (For Medical Practitioner Use Only) Attention Patients / Veterans: If you have questions or concerns about these test results, please contact your ordering provider or primary care team. Primary Interpreting Staff: RADIOLOGY,OUTSIDE SERVICE, Staff Physician / RADIOLOGY,OUTSIDE SERVICE [facility] Jun 22, 2024 11:49 AM ABSCESS DRAIN PLAC EMENT PERITONEAL (P): MEGFLACADARCI LOBO [id number] -1950 M Exm Date: JUN 22, 2024@11:49 Req Phys: ANGELA HOLDEN Pat Loc: [facility]/06-22-2024@17:14 Img Loc: INTERVENTIONAL RADIOLOGY Service: [place] [address] (Case [id number] COMPLETE) IR PERITONEAL/RETROPERITONEAL PER(ANI Detailed) CPT:17747 Reason for Study: diverticulitis with abscess (Case 3570 COMPLETE) IR MOD SEDATION 10-22 MIN (ANI Detailed) CPT:90553 Clinical History: IS NOT under investigation for COVID-19 or is COVID-19 negative 73 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 please place abscess drain. Contact number for responsible provider who can be reached for any questions or notifications of critical findings: [phone] n/a LAST CREATININE 0.9 (06/21/24) Report Status: Verified Date Reported: JUN 22, 2024 Date Verified: JUN 22, 2024 Clearing Inspector E-Sig:/ES/LISA PENDLETON MD Report: PROCEDURES: Placement [...] A pre-procedural Time-Out was performed per [facility] policy. The patient was placed in the supine position on the CT table. Preprocedural scan performed. The suprapubic region/lower abdominal wall was sterilely prepped and draped in the usual fashion.1% lidocaine without epinephrine was used for local anesthesia. Using real-time CT fluoroscopy, a 5 Anguillan citizenmadeesis catheter was advanced into the collection in the left pelvis. A wire was coiled in the collection. The tract into the collection was dilated to accommodate the 12 [place]guillan locking pigtail drainage catheter. There was return [...] Primary Interpreting Staff: LISA PENDLETON MD, RADIOLOGIST (Clearing Inspector) /LISA CARDONA [facility] Jun 22, 2024 11:[address] NEEDLE PLACEMEN T (P): FLACA WEAVER [id number] -1950 M Exm Date: JUN 22, 2024@11:48 Req Phys: ANGELA HOLDEN Loc: 2K/06-22-2024@17:14 Img Loc: CT IMAGING Service: [place] [address] (Case [id number] COMPLETE) CT SCAN FOR NEEDLE PLACEMENT (CT Detailed) CPT:72405 Reason for Study: l pelvic abscess drain Clinical History: Report Status: Verified Date Reported: JUN 22, 2024 Date Verified: JUN 22, 2024 Clearing Inspector E-Sig:/ES/LISA PENDLETON MD Report: PROCEDURES: Placement [...] A pre-procedural Time-Out was performed per [facility] policy. The patient was placed in the supine position on the CT table. Preprocedural scan performed. The suprapubic region/lower abdominal wall was sterilely prepped and draped in the usual fashion.1% lidocaine without epinephrine was used for local anesthesia. Using real-time CT fluoroscopy, a 5 Anguillan citizenmadeesis catheter was advanced into the collection in the left pelvis. A wire was coiled in the collection. The tract into the collection was dilated to accommodate the 12 [place]ill[place] locking pigtail drainage catheter. There was return [...] Primary Interpreting Staff: LISA PENDLETON MD, RADIOLOGIST (Clearing Inspector) /JRT LISA PENDLETON [facility] Jun 21, 2024 06:[address] (AP) ABDOMEN/PE LVIS (P): FLACA WEAVER [id number] -1950 M Exm Date: JUN 21, 2024@18:09 Req Phys: DELIA MARTINEZ Loc: [facility] EMERGENCY DEPT WALK-IN (Re Img Loc: CT IMAGING Service: [place] [address] (Case [id number] COMPLETE) CT (AP) ABDOMEN/PELVIS W CONTRAST(CT Detailed) CPT:86983 Contrast Media : Non-ionic Iodinated Reason for [...] PLASMA .CREAT EGFR(CKD-E >90 Ref: >=60 Allergies: ([place] only) TERAZOSIN (Mar 13, 2015) Defer to [...] 21, 2024 Date Verified: JUN 21, 2024 Clearing Inspector E-Sig:/ALEXI/CARLOS A CUNNINGHAM DO Report: EXAMINATION: [...] Interpreting Staff: CARLOS A CUNNINGHAM DO, RADIOLOGIST (Clearing Inspector) /CARLOS A ROWELL [facility] Pathology Reports: +/- 30 [...] 03, 2024 05:59 AM LR SURGICAL PATHOL OGTg REPORT: LOCAL TITLE: LR SURGICAL PATHOLOGY REPORT STANDARD TITLE: PATHOLOGY REPORT DATE OF NOTE: JUL 06, 2024@10:40:48 ENTRY DATE: JUL 06, 2024@10:40:48 AUTHOR: EDUARDO PALOMARES EXP COSIGNER: URGENCY: STATUS: COMPLETED $APHDR Reporting Lab: [facility] [CLIA# [id number]] [place] [address] - - - - - - - [...] - PATHOLOGY REPORT Accession No. [id number] - - - - - - - [...] - PATHOLOGY REPORT Accession No. [id number] - - - - - - - [...] Second circumferential surgical margin, en face; E-F: Crop Duster Helper diverticula; G: Crop Duster Helper section of mesentery; H: Random surgical sales representative section of additional adipose tissue [...] One colonic tissue ring, bisected transversely. SS. (D)[facility] MICROSCOPIC DESCRIPTION: Microscopic examination performed. DIAGNOSIS: 1. Colon, sigmoid, sigmoidectomy-- - Diverticulosis with perforation and focal abscess formation 2. Colon, anastomotic rings, excision-- - Viable colonic mucosa without diagnostic abnormality /es/ EDUARDO PALOMARES MD STAFF PATHOLOGIST Signed Jul 06, 2024@10:40 Performing Laboratory: Surgical Pathology Report Performed By: [facility] [CLIA# [id number]] [place] [address] $FTR - - - - - - - - - - - - - - - - - - - - - - - - - - - - - - - - - - - - - - - - (End of report) EDUARDO PALOMARES MD bc Date Jul 06, 2024 - - - - - - - - - - - - - - - - - - - - - - - - - - - - - - - - - - - - - - - - FLACA WEAVER STANDARD FORM 515 ID:[id number] SEX:M :1950 AGE: 73 LOC:[id number] ADM:Jun DX:DIVERTICULITIS PCP: Jatinder Cabrera /alexi/ EDUARDO PALOMARES MD STAFF PATHOLOGIST Signed: 07/06/2024 10:40 EDUARDO PALOMARES [facility] Jun 22, 2024 01:15 PM LR MICROBIOLOGY RE PORT: Reporting Lab: [facility] [CLIA# [id number]] [place] [address] Accession [UID]: [id number] [[id number]] Received: Jun 22, 2024@13:38 Collection sample: FLUID Collection date: Jun 22, 2024 13:15 Provider: ANGELA HOLDEN Comment on specimen: LLQ ABSCESS, RECEIVED IN ANAEROBIC TRANSPORT VIAL Test(s) ordered: GRAM STAIN.................... completed: Jun 22, 2024 15:03 CULTURE & SUSCEPTIBILITY...... completed: Jun 25, 2024 * BACTERIOLOGY FINAL REPORT => Jun 25, 2024 10:56 TECH CODE: [id number] GRAM STAIN: DIRECT SMEAR of specimen before [...] -=--=--=--=--=--=--=-- Performing Laboratory: Bacteriology Report Performed By: [facility] [CLIA# [id number]] [place] [address] [facility] Jun 22, 2024 01:15 PM LR MICROBIOLOGY RE PORT: Reporting Lab: [facility] [CLIA# [id number]] [place] [address] Accession [UID]: [id number] [[id number]] Received: Jun 22, 2024@13:38 Collection sample: FLUID Collection date: Jun 22, 2024 13:15 Provider: ANGELA HOLDEN Comment on specimen: LLQ ABSCESS, RECEIVED IN ANAEROBIC TRANSPORT VIAL Test(s) ordered: ANAEROBIC CULTURE............. completed: Jun 28, 2024 * BACTERIOLOGY FINAL REPORT => Jun 28, 2024 10:08 TECH CODE: [id number] CULTURE RESULTS: HEAVY GROWTH MIXED ANAEROBES Comment: including the followin+ Bacteroides fragilis 4+ Bacteroides vulgatus 4+ Clostridium innocuum Beta-lactamase negative 4+ Bacteroides caccae 4+ Parvimonas micra 4+ Bacteroides uniformis 4+ Gemella morbillorum 4+ anaerobic small, Gram Positive Rods 4+ Bacteroides thetaiotaomicron Standard workup is now complete. Bacteriology Remark(s): THIS REPORT IS FINAL =--=--=--=--=--=--=--=--=--= --=--=--=--=--=--=--=--=--=- -=--=--=--=--=--=--=-- Performing Laboratory: Bacteriology Report Performed By: [facility] [CLIA# [id number]] [place] [address] [facility] Jun 21, 2024 06:12 PM LR MICROBIOLOGY RE PORT: Reporting Lab: [facility] [CLIA# [id number]] [place] [address] Accession [UID]: [id number] [[id number]] Received: Jun 21, 2024@18:12 Collection sample: BLOOD [...] -=--=--=--=--=--=--=-- Performing Laboratory: Bacteriology Report Performed By: [facility] [CLIA# [id number]] [place] [address] [facility] Jun 21, 2024 06:11 PM LR MICROBIOLOGY RE PORT: Reporting Lab: [facility] [CLIA# [id number]] [place] [address] Accession [UID]: [id number] [[id number]] Received: Jun 21, 2024@18:11 Collection sample: BLOOD [...] -=--=--=--=--=--=--=-- Performing Laboratory: Bacteriology Report Performed By: [facility] [CLIA# [id number]] [place] [address] [facility]
--- OUTSIDE RECORDS SUMMARY | 2024-07-16 07:21 | XMS_ITS ---
[place] DAILY HOSPITALIZATION DATA [facility] Encounter Summary Created on: July 16, 2024 MEG FLACADARCI LOBO : 1950 Sex: Male Author Name [facility] [place] [facility] [place] Address [address] [place] [address] Care Team Providers Care District Director Name Role Phone JATINDER CABRERA Primary Care [...] PART A Sep 29, 2016 PART A [id number] JUDY WEAVER PATIENT Selected Encounter This section includes the information on record at [place] for the Encounter. Date/Time Encounter Type Encounter Description Reason Pro vider Source Jul 09, 2024 01:46 PM Inpatient Visit DAILY HOSPITALIZATION DATA [facility]EREN[facility]ASHER E Encounter Template Text not used by [place] [...] 2024 08:15 AM AMBULATORY - NONE [place] [facility] Active, Pending, and Scheduled Orders This [...] & SCREEN - LAB BLOOD SP [facility] Jun 08, 2024 09:57 AM Laboratory - Chemi stry Order URINALYSIS URINE WC ONCE [facility] Jun 12, 2024 12:00 AM Laboratory - Chemi stry Order BNP PLASMA SP ONCE [facility] Jun 21, 2024 05:45 PM Laboratory - Blood Bank Order TYPE & SCREEN - LAB BLOOD WC [facility] Jul 03, 2024 12:00 AM Laboratory - Blood Bank Order TYPE & SCREEN - LAB BLOOD [facility] Jul 16, 2024 12:00 AM Laboratory - Chemi stry Order CBC BLOOD SP ONCE [facility] Jul 17, 2024 12:00 AM Laboratory - Chemi stry Order BASIC METABOLIC PANEL+MG PLASMA SP ONCE [facility] Lab Results: +/- 30 days [...] Comment Jul 10, 2024 07:16 AM [facility] PHOSPHORUS Specimen Type: PLASMA No comment entered. Ordering Provider: JUANCARLOS ECHOLS S Report Released Date/Time: Jul 09, 2024 12:23 PM Reporting Lab: [facility] [address] Performing Lab: [facility] [address] PHOSPHORUS 3.0 mg/dL 2.3-4.3 Jul 10, 2024 07:16 AM [facility] BASIC METABOLIC PANEL+MG Specimen Type: PLASMA No comment entered. Ordering Provider: JUANCARLOS ECHOLS S Report Released Date/Time: Jul 09, 2024 12:23 PM Reporting Lab: [facility] [address] Performing Lab: [facility] [address] CREATININE 0.7 mg/dL 0.7-1.2 UREA NITROGEN 27 mg/dL H 8-26 GLUCOSE 104 mg/dL H 70-100 SODIUM 133 mmol/L L 136-145 POTASSIUM 4.3 mmol/L 3.5-5.1 CHLORIDE 102 mmol/L 98-107 CO2 19 mmol/L L 22-29 CALCIUM 10.1 mg/dL 8.4-10.2 MAGNESIUM 1.9 mg/dL 1.6-2.6 ANION GAP 12 mmol/L 5-15 .CREAT EGFR(CKD-EPI) >90 >60 Jul 10, 2024 07:15 AM [facility] CBC Specimen Type: BLOOD No comment entered. Ordering Provider: JUANCARLOS ECHOLS Report Released Date/Time: Jul 09, 2024 12:23 PM Reporting Lab: [facility] [address] Performing Lab: [facility] [address] WBC 18.8 H 4.0-11.0 RBC 5.08 4.60-6.20 HGB 15.9 g/dL 13.5-17.9 HCT 46.8 41.0-54.0 MCV 92.1 fL 80.0-100.0 MCH 31.3 pg 27.0-33.0 MCHC 34.0 g/dL 32.0-37.5 PLT 479 H 150-400 MPV 10.2 fL 9.1-13.0 RDW 13.7 11.5-14.5 Jul 09, 2024 07:08 AM [facility] CBC Specimen Type: BLOOD No comment entered. Ordering Provider: QUYNH WEISS Report Released Date/Time: Jul 08, 2024 06:18 PM Reporting Lab: [facility] [address] Performing Lab: [facility] [address] WBC 15.3 H 4.0-11.0 RBC 4.91 4.60-6.20 HGB 15.1 g/dL 13.5-17.9 HCT 45.7 41.0-54.0 MCV 93.1 fL 80.0-100.0 MCH 30.8 pg 27.0-33.0 MCHC 33.0 g/dL 32.0-37.5 PLT 443 H 150-400 MPV 10.0 fL 9.1-13.0 RDW 13.5 11.5-14.5 Jul 08, 2024 10:50 AM [facility] URINALYSIS Specimen Type: URINE No comment entered. Ordering Provider: KATELYNN PERSON Report Released Date/Time: Jul 08, 2024 08:41 AM Reporting Lab: [facility] [address] Performing Lab: [facility] [address] URINE COLOR YELLOW SPECIFIC GRAVITY >1.050 H [...] NEGATIVE Jul 08, 2024 09:54 AM [facility] CBC Specimen Type: BLOOD Comment: Specimen received in Lab at: 0952 Ordering Provider: JUANCARLOS ECHOLS Report Released Date/Time: Jul 07, 2024 04:49 PM Reporting Lab: [facility] [address] Performing Lab: [facility] [address] WBC 17.5 H 4.0-11.0 RBC 4.88 4.60-6.20 HGB 14.9 g/dL 13.5-17.9 HCT 45.7 41.0-54.0 MCV 93.6 fL 80.0-100.0 MCH 30.5 pg 27.0-33.0 MCHC 32.6 g/dL 32.0-37.5 PLT 472 H 150-400 MPV 10.2 fL 9.1-13.0 RDW 13.7 11.5-14.5 Jul 08, 2024 09:54 AM [facility] PHOSPHORUS Specimen Type: PLASMA Comment: Specimen received in Lab at: 0952 Ordering Provider: BALAJADIA,MAR IA S Report Released Date/Time: Jul 07, 2024 04:49 PM Reporting Lab: [facility] [address] Performing Lab: [facility] [address] PHOSPHORUS 2.6 mg/dL 2.3-4.3 Jul 08, 2024 09:54 AM [facility] BASIC METABOLIC PANEL+MG Specimen Type: PLASMA Comment: Specimen received in Lab at: 0952 Ordering Provider: JUANCARLOS ECHOLS S Report Released Date/Time: Jul 07, 2024 04:49 PM Reporting Lab: [facility] [address] Performing Lab: [facility] [address] CREATININE 0.9 mg/dL 0.7-1.2 UREA NITROGEN 26 mg/dL 8-26 GLUCOSE 128 mg/dL H 70-100 SODIUM 134 mmol/L L 136-145 POTASSIUM 3.4 mmol/L L 3.5-5.1 CHLORIDE 100 mmol/L 98-107 CO2 24 mmol/L 22-29 CALCIUM 9.8 mg/dL 8.4-10.2 MAGNESIUM 1.8 mg/dL 1.6-2.6 ANION GAP 10 mmol/L 5-15 .CREAT EGFR(CKD-EPI) >90 >60 Jul 07, 2024 02:00 PM [facility] C DIFF PANEL Specimen Type: FECES No comment entered. Ordering Provider: JEVON ZAZUETA Report Released Date/Time: Jul 07, 2024 12:26 PM Reporting Lab: [facility] [address] Performing Lab: [facility] [address] C DIFF TOX B GENE PCR NEGATIVE Negative Jul 07, 2024 07:41 AM [facility] PHOSPHORUS Specimen Type: PLASMA No comment entered. Ordering Provider: JEVON ZAZUETA Report Released Date/Time: Jul 06, 2024 03:44 PM Reporting Lab: [facility] [address] Performing Lab: [facility] [address] PHOSPHORUS 3.1 mg/dL 2.3-4.3 Jul 07, 2024 07:41 AM [facility] BASIC METABOLIC PANEL+MG Specimen Type: PLASMA No comment entered. Ordering Provider: JEVON ZAZUETA Report Released Date/Time: Jul 06, 2024 03:44 PM Reporting Lab: [facility] [address] Performing Lab: [facility] [address] CREATININE 0.9 mg/dL 0.7-1.2 UREA NITROGEN 20 mg/dL 8-26 GLUCOSE 157 mg/dL H 70-100 SODIUM 136 mmol/L 136-145 POTASSIUM 3.7 mmol/L 3.5-5.1 CHLORIDE 102 mmol/L 98-107 CO2 21 mmol/L L 22-29 CALCIUM 9.8 mg/dL 8.4-10.2 MAGNESIUM 1.9 mg/dL 1.6-2.6 ANION GAP 13 mmol/L 5-15 .CREAT EGFR(CKD-EPI) >90 >60 Jul 07, 2024 07:40 AM [facility] CBC Specimen Type: BLOOD No comment entered. Ordering Provider: JEVON ZAZUETA Report Released Date/Time: Jul 06, 2024 03:44 PM Reporting Lab: [facility] [address] Performing Lab: [facility] [address] WBC 21.2 H 4.0-11.0 RBC 5.09 4.60-6.20 HGB 15.9 g/dL 13.5-17.9 HCT 48.3 41.0-54.0 MCV 94.9 fL 80.0-100.0 MCH 31.2 pg 27.0-33.0 MCHC 32.9 g/dL 32.0-37.5 PLT 500 H 150-400 MPV 10.3 fL 9.1-13.0 RDW 13.6 11.5-14.5 Jul 06, 2024 07:21 AM [facility] CBC Specimen Type: BLOOD No comment entered. Ordering Provider: JEVON ZAZUETA Report Released Date/Time: Jul 05, 2024 01:22 PM Reporting Lab: [facility] [address] Performing Lab: [facility] [address] WBC 18.0 H 4.0-11.0 RBC 4.83 4.60-6.20 HGB 14.6 g/dL 13.5-17.9 HCT 45.5 41.0-54.0 MCV 94.2 fL 80.0-100.0 MCH 30.2 pg 27.0-33.0 MCHC 32.1 g/dL 32.0-37.5 PLT 368 150-400 MPV 10.4 fL 9.1-13.0 RDW 13.6 11.5-14.5 Jul 06, 2024 07:21 AM [facility] PHOSPHORUS Specimen Type: PLASMA No comment entered. Ordering Provider: JEVON ZAZUETA Report Released Date/Time: Jul 05, 2024 01:22 PM Reporting Lab: [facility] [address] Performing Lab: [facility] [address] PHOSPHORUS 3.6 mg/dL 2.3-4.3 Jul 06, 2024 07:21 AM [facility] BASIC METABOLIC PANEL+MG Specimen Type: PLASMA No comment entered. Ordering Provider: JEVON ZAZUETA Report Released Date/Time: Jul 05, 2024 01:22 PM Reporting Lab: [facility] [address] Performing Lab: [facility] [address] CREATININE 0.7 mg/dL 0.7-1.2 UREA NITROGEN 12 mg/dL 8-26 GLUCOSE 108 mg/dL H 70-100 SODIUM 138 mmol/L 136-145 POTASSIUM 3.4 mmol/L L 3.5-5.1 CHLORIDE 104 mmol/L 98-107 CO2 20 mmol/L L 22-29 CALCIUM 9.3 mg/dL 8.4-10.2 MAGNESIUM 1.9 mg/dL 1.6-2.6 ANION GAP 14 mmol/L 5-15 .CREAT EGFR(CKD-EPI) >90 >60 Jul 05, 2024 07:17 AM [facility] MAGNESIUM Specimen Type: PLASMA No comment entered. Ordering Provider: JUANCARLOS ECHOLS S Report Released Date/Time: Jul 04, 2024 09:39 AM Reporting Lab: [facility] [address] Performing Lab: [facility] [address] MAGNESIUM 2.0 mg/dL 1.6-2.6 Jul 05, 2024 07:17 AM [facility] PHOSPHORUS Specimen Type: PLASMA No comment entered. Ordering Provider: JUANCARLOS ECHOLS S Report Released Date/Time: Jul 04, 2024 09:39 AM Reporting Lab: [facility] [address] Performing Lab: [facility] [address] PHOSPHORUS 2.0 mg/dL L 2.3-4.3 Jul 05, 2024 07:17 AM [facility] BASIC METABOLIC PANEL+MG Specimen Type: PLASMA No comment entered. Ordering Provider: JUANCARLOS ECHOLS S Report Released Date/Time: Jul 04, 2024 09:39 AM Reporting Lab: [facility] [address] Performing Lab: [facility] [address] CREATININE 0.7 mg/dL 0.7-1.2 UREA NITROGEN 12 mg/dL 8-26 GLUCOSE 84 mg/dL 70-100 SODIUM 135 mmol/L L 136-145 POTASSIUM 3.8 mmol/L 3.5-5.1 CHLORIDE 104 mmol/L 98-107 CO2 24 mmol/L 22-29 CALCIUM 9.3 mg/dL 8.4-10.2 MAGNESIUM 2.0 mg/dL 1.6-2.6 ANION GAP 7 mmol/L 5-15 .CREAT EGFR(CKD-EPI) >90 >60 Jul 05, 2024 07:16 AM [facility] CBC Specimen Type: BLOOD No comment entered. Ordering Provider: JUANCARLOS ECHOLS S Report Released Date/Time: Jul 04, 2024 09:39 AM Reporting Lab: [facility] [address] Performing Lab: [facility] [address] WBC 18.3 H 4.0-11.0 RBC 4.49 L 4.60-6.20 HGB 14.1 g/dL 13.5-17.9 HCT 43.4 41.0-54.0 MCV 96.7 fL 80.0-100.0 MCH 31.4 pg 27.0-33.0 MCHC 32.5 g/dL 32.0-37.5 PLT 317 150-400 MPV 10.0 fL 9.1-13.0 RDW 13.9 11.5-14.5 Jul 04, 2024 07:17 AM [facility] PHOSPHORUS Specimen Type: PLASMA No comment entered. Ordering Provider: GABINO CAMERON Report Released Date/Time: Jul 03, 2024 06:31 PM Reporting Lab: [facility] [address] Performing Lab: [facility] [address] PHOSPHORUS 2.8 mg/dL 2.3-4.3 Jul 04, 2024 07:17 AM [facility] BASIC METABOLIC PANEL+MG Specimen Type: PLASMA No comment entered. Ordering Provider: GABINO CAMERON Report Released Date/Time: Jul 03, 2024 06:31 PM Reporting Lab: [facility] [address] Performing Lab: [facility] [address] CREATININE 0.7 mg/dL 0.7-1.2 UREA NITROGEN 16 mg/dL 8-26 GLUCOSE 129 mg/dL H 70-100 SODIUM 137 mmol/L 136-145 POTASSIUM 3.7 mmol/L 3.5-5.1 CHLORIDE 107 mmol/L 98-107 CO2 22 mmol/L 22-29 CALCIUM 9.0 mg/dL 8.4-10.2 MAGNESIUM 1.9 mg/dL 1.6-2.6 ANION GAP 8 mmol/L 5-15 .CREAT EGFR(CKD-EPI) >90 >60 Jul 04, 2024 07:16 AM [facility] CBC Specimen Type: BLOOD No comment entered. Ordering Provider: GABINO CAMERON Report Released Date/Time: Jul 03, 2024 06:31 PM Reporting Lab: [facility] [address] Performing Lab: [facility] [address] WBC 20.6 H 4.0-11.0 RBC 4.63 4.60-6.20 HGB 14.2 g/dL 13.5-17.9 HCT 43.4 41.0-54.0 MCV 93.7 fL 80.0-100.0 MCH 30.7 pg 27.0-33.0 MCHC 32.7 g/dL 32.0-37.5 PLT 329 150-400 MPV 10.4 fL 9.1-13.0 RDW 13.8 11.5-14.5 Jul 04, 2024 07:16 AM [facility] CBC & DIFF Specimen Type: BLOOD Comment: Manual Differential Performed Ordering Provider: GABINO CAMERON Report Released Date/Time: Jul 03, 2024 06:31 PM Reporting Lab: [facility] [address] Performing Lab: [facility] [address] WBC 20.6 H 4.0-11.0 RBC 4.63 4.60-6.20 [...] PRESENT Jul 04, 2024 07:15 AM [facility] BNP Specimen Type: PLASMA No comment entered. Ordering Provider: GABINO CAMERON Report Released Date/Time: Jul 03, 2024 06:31 PM Reporting Lab: [facility] [address] Performing Lab: [facility] [address] BNP 292 pg/mL H <99 Jul 03, 2024 10:32 PM [facility] FINGERSTICK GLUCOSE Specimen Type: BLOOD Comment: Save Result Nurse Notified Ordering Provider: KATELYNN PERSON Report Released Date/Time: Jul 03, 2024 10:50 PM Reporting Lab: [facility] [address] Performing Lab: [facility] [address] FINGERSTICK GLUCOSE 126 mg/dL H 70-100 Jul 03, 2024 05:33 PM [facility] FINGERSTICK GLUCOSE Specimen Type: BLOOD Comment: Save Result Nurse Notified Ordering Provider: KATELYNN PERSON Report Released Date/Time: Jul 03, 2024 05:46 PM Reporting Lab: [facility] [address] Performing Lab: [facility] [address] FINGERSTICK GLUCOSE 141 mg/dL H 70-100 Jul 03, 2024 02:31 PM [facility] POC ABG/ELECTROLYTES Specimen Type: ARTERIAL BLOOD Comment: FIO2 = 97% Patient Temp: 36.0 C Sample Type = ARTERIAL Ordering Provider: MAZIN ARREDONDO Report Released Date/Time: Jul 03, 2024 01:48 PM Reporting Lab: [facility] [address] Performing Lab: [facility] [address] POC PH 7.387 7.35-7.45 POC PCO2 34.4 [...] 80.0-105.0 Jul 03, 2024 01:05 PM [facility] POC ABG/ELECTROLYTES Specimen Type: ARTERIAL BLOOD Comment: FIO2 = 53% Patient Temp: 36.2 C Sample Type = ARTERIAL Ordering Provider: MAZIN ARREDONDO Report Released Date/Time: Jul 03, 2024 01:48 PM Reporting Lab: [facility] [address] Performing Lab: [facility] [address] POC PH 7.280 L 7.35-7.45 POC PCO2 [...] 80.0-105.0 Jul 03, 2024 06:15 AM [facility] URINALYSIS Specimen Type: URINE No comment entered. Ordering Provider: MARYBETH POWELL Report Released Date/Time: Jun 12, 2024 04:01 PM Reporting Lab: [facility] [address] Performing Lab: [facility] [address] URINE COLOR YELLOW SPECIFIC GRAVITY 1.031 1.003-1.03 [...] NEGATIVE Jul 03, 2024 06:13 AM [facility] CBC Specimen Type: BLOOD No comment entered. Ordering Provider: MARYBETH POWELL Report Released Date/Time: Jun 12, 2024 03:59 PM Reporting Lab: [facility] [address] Performing Lab: [facility] [address] WBC 15.8 H 4.0-11.0 RBC 5.11 4.60-6.20 HGB 16.1 g/dL 13.5-17.9 HCT 49.1 41.0-54.0 MCV 96.1 fL 80.0-100.0 MCH 31.5 pg 27.0-33.0 MCHC 32.8 g/dL 32.0-37.5 PLT 357 150-400 MPV 9.8 fL 9.1-13.0 RDW 13.7 11.5-14.5 Jun 24, 2024 09:50 AM [facility] BASIC METABOLIC PANEL+MG Specimen Type: PLASMA Comment: Specimen received in Lab at: 0948 Ordering Provider: JEVON ZAZUETA Report Released Date/Time: Jun 23, 2024 06:07 PM Reporting Lab: [facility] [address] Performing Lab: [facility] [address] CREATININE 0.8 mg/dL 0.7-1.2 UREA NITROGEN 13 mg/dL 8-26 GLUCOSE 135 mg/dL H 70-100 SODIUM 135 mmol/L L 136-145 POTASSIUM 3.6 mmol/L 3.5-5.1 CHLORIDE 103 mmol/L 98-107 CO2 24 mmol/L 22-29 CALCIUM 9.2 mg/dL 8.4-10.2 MAGNESIUM 1.9 mg/dL 1.6-2.6 ANION GAP 8 mmol/L 5-15 .CREAT EGFR(CKD-EPI) >90 >60 Jun 24, 2024 09:50 AM [facility] CBC Specimen Type: BLOOD Comment: Specimen received in Lab at: 0948 Ordering Provider: JEVON ZAZUETA Report Released Date/Time: Jun 23, 2024 06:07 PM Reporting Lab: [facility] [address] Performing Lab: [facility] [address] WBC 15.5 H 4.0-11.0 RBC 4.93 4.60-6.20 HGB 15.2 g/dL 13.5-17.9 HCT 46.5 41.0-54.0 MCV 94.3 fL 80.0-100.0 MCH 30.8 pg 27.0-33.0 MCHC 32.7 g/dL 32.0-37.5 PLT 223 150-400 MPV 11.4 fL 9.1-13.0 RDW 13.9 11.5-14.5 Jun 23, 2024 07:52 AM [facility] COMPREHENSIVE METABOLIC PANEL+MG Specimen Type: PLASMA No comment entered. Ordering Provider: JEVON ZAZUETA Report Released Date/Time: Jun 22, 2024 05:51 PM Reporting Lab: [facility] [address] Performing Lab: [facility] [address] CREATININE 0.7 mg/dL 0.7-1.2 UREA NITROGEN 16 [...] >60 Jun 23, 2024 07:52 AM [facility] CBC & DIFF Specimen Type: BLOOD Comment: Automated Differential Performed Ordering Provider: JEVON ZAZUETA Report Released Date/Time: Jun 22, 2024 05:51 PM Reporting Lab: [facility] [address] Performing Lab: [facility] [address] WBC 14.9 H 4.0-11.0 RBC 5.09 4.60-6.20 [...] 0.0-0.1 Jun 22, 2024 06:10 PM [facility] CBC Specimen Type: BLOOD No comment entered. Ordering Provider: JEVON ZAZUETA Report Released Date/Time: Jun 22, 2024 05:51 PM Reporting Lab: [facility] [address] Performing Lab: [facility] [address] WBC 16.9 H 4.0-11.0 RBC 5.28 4.60-6.20 HGB 16.9 g/dL 13.5-17.9 HCT 50.4 41.0-54.0 MCV 95.5 fL 80.0-100.0 MCH 32.0 pg 27.0-33.0 MCHC 33.5 g/dL 32.0-37.5 PLT 223 150-400 MPV 10.9 fL 9.1-13.0 RDW 14.0 11.5-14.5 Jun 22, 2024 06:10 PM [facility] COMPREHENSIVE METABOLIC PANEL+MG Specimen Type: PLASMA No comment entered. Ordering Provider: JEVON ZAZUETA Report Released Date/Time: Jun 22, 2024 05:51 PM Reporting Lab: [facility] [address] Performing Lab: [facility] [address] CREATININE 0.7 mg/dL 0.7-1.2 UREA NITROGEN 17 [...] >60 Jun 21, 2024 06:48 PM [facility] URINALYSIS Specimen Type: URINE No comment entered. Ordering Provider: DELIA MARTINEZ Report Released Date/Time: Jun 21, 2024 05:45 PM Reporting Lab: [facility] [address] Performing Lab: [facility] [address] URINE COLOR YELLOW SPECIFIC GRAVITY 1.041 H [...] NEGATIVE Jun 21, 2024 05:34 PM [facility] POC CREATININE Specimen Type: BLOOD No comment entered. Ordering Provider: DELIA MARTINEZ Report Released Date/Time: Jun 21, 2024 06:07 PM Reporting Lab: [facility] [address] Performing Lab: [facility] [address] POC CREATININE 1.1 mg/dL 0.6-1.3 Jun 21, 2024 05:30 PM [facility] POC ABG/LACTATE Specimen Type: VENOUS BLOOD No comment entered. Ordering Provider: DELIA MARTINEZ Report Released Date/Time: Jun 21, 2024 06:07 PM Reporting Lab: [facility] [address] Performing Lab: [facility] [address] POC PH 7.470 H 7.31-7.41 POC PCO2 31.2 mm[Hg] L 41.00-51 .0 0 POC PO2 46 mm[Hg] H 35.0-40.0 POC TCO2 24 mmol/L 24.0-29.0 POC HCO3 22.7 mmol/L L 23.0-28.0 POC BE ECT -1 mmol/L POC SO2 85 H 70-75 POC LACTATE 1.85 mmol/L 0.90-1.70 Jun 21, 2024 05:24 PM [facility] PROTHROMBIN TIME/INR Specimen Type: PLASMA No comment entered. Ordering Provider: DELIA MARTINEZ Report Released Date/Time: Jun 21, 2024 05:30 PM Reporting Lab: [facility] [address] Performing Lab: [facility] [address] .INR 1.2 H 0.8-1.1 .PT 13.9 s H 9.4-12.5 Jun 21, 2024 05:24 PM [facility] LIPASE Specimen Type: PLASMA No comment entered. Ordering Provider: DELIA MARTINEZ Report Released Date/Time: Jun 21, 2024 05:30 PM Reporting Lab: [facility] [address] Performing Lab: [facility] [address] LIPASE 32 U/L <60 Jun 21, 2024 05:24 PM [facility] EXTRA GOLD GEL TUBE Specimen Type: SERUM No comment entered. Ordering Provider: DELIA MARTINEZ Report Released Date/Time: Jun 21, 2024 05:41 PM Reporting Lab: [facility] [address] Performing Lab: [facility] [address] EXTRA GOLD GEL TUBE RECEIVED Jun 21, 2024 05:24 PM [facility] COMPREHENSIVE METABOLIC PANEL+MG Specimen Type: PLASMA No comment entered. Ordering Provider: DELIA MARTINEZ Report Released Date/Time: Jun 21, 2024 05:30 PM Reporting Lab: [facility] [address] Performing Lab: [facility] [address] CREATININE 0.9 mg/dL 0.7-1.2 UREA NITROGEN 29 [...] <0.5 Jun 21, 2024 05:24 PM [facility] CBC & DIFF Specimen Type: BLOOD Comment: Manual Differential Performed Ordering Provider: DELIA MARTINEZ Report Released Date/Time: Jun 21, 2024 05:30 PM Reporting Lab: [facility] [address] Performing Lab: [facility] [address] WBC 21.3 H 4.0-11.0 RBC 5.48 4.60-6.20 [...] 11:47 PM 97.9 59 151/73 18 98 [facility] Jul 09, 2024 04:39 PM 97.5 55 120/65 18 97 0 [facility] Jul 09, 2024 09:36 AM 98.1 67 134/78 16 99 1 [facility] Jul 09, 2024 05:09 AM 1 [facility] Jul 09, 2024 03:28 AM 5 [facility] Social History: Smoking [...] 2024 08:30 AM VA-TOBACCO FORMER USER [facility] Tobacco Use History This section includes a history of the smoking, or tobacco-related health factors, that were collected on or before the date of the Encounter. The data comes from the [place] facility where the Encounter took place. Date/Time Smoking Status/Tobacco Use Comment F acility May 15, 2024 08:30 AM VA-TOBACCO QUIT 15 YRS OR MORE [facility] May 06, 2023 11:30 AM VA-TOBACCO FORMER USER [facility] May 06, 2023 11:30 AM VA-TOBACCO QUIT 15 YRS OR MORE [facility] Jun 04, 2022 09:00 AM VA-TOBACCO FORMER USER [facility] Jun 04, 2022 09:00 AM VA-TOBACCO QUIT 15 YRS OR MORE [facility] Jul 10, 2021 08:00 AM VA-TOBACCO FORMER USER [facility] Jul 10, 2021 08:00 AM VA-TOBACCO QUIT 5 TO < 15 YRS [facility] May 23, 2020 08:30 AM VA-TOBACCO FORMER USER [facility] May 23, 2020 08:30 AM VA-TOBACCO QUIT 5 TO < 15 YRS [facility] Mar 20, 2019 04:03 PM VA-TOBACCO FORMER USER [facility] Mar 20, 2019 04:03 PM VA-TOBACCO QUIT 5 TO < 15 YRS [facility] Mar 21, 2018 08:13 AM FORMER TOBACCO USER 7Y OR GREATE R [facility] Feb 24, 2017 09:24 AM FORMER TOBACCO USER 7Y OR GREATE R [facility] January 07, 2016 08:01 AM FORMER TOBACCO USE >1Y <7Y [facility] Feb 03, 2015 07:58 AM FORMER TOBACCO USE <1Y [facility] Feb 26, 2014 08:41 AM CURRENT TOBACCO USER [facility] May 13, 2011 01:45 PM CURRENT TOBACCO USER [facility] Advance Directives: All historical and [...] PA A ND LAT: FLACA WEAVER YAMIL [id number] -1950 M Exm Date: JUL 08, 2024@10:09 Req Phys: KATELYNN PERSON Pat Loc: 2KG/07-08-2024@11:49 Img Loc: MAIN X-RAY Service: [place] [address] (Case 24 COMPLETE) CHEST 2 VIEWS PA AND LAT (RAD Detailed) CPT:20667 Reason for Study: Uptrending WBC, POD 5 [...] 08, 2024 Date Verified: JUL 08, 2024 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 FINDINGS: Lungs: Clear. No focal consolidation. No pulmonary edema. Pleura: No pleural effusion or pneumothorax. Mediastinum: Normal size and contour. Bones: Unremarkable. Impression: No acute cardiopulmonary disease. READING PHYSICIAN: Sarbjit Vaughn M.D. -[id number] 07/08/2024 12:46 EST [facility] National [facility] Program [phone] (For Medical Practitioner Use Only) Attention Patients / Veterans: If you have questions or concerns about these test results, please contact your ordering provider or primary care team. Primary Interpreting Staff: RADIOLOGY,OUTSIDE SERVICE, Staff Physician / RADIOLOGY,OUTSIDE SERVICE [facility] Jul 08, 2024 10:[address] (AP) ABDOMEN/PE LVIS W CONTRAST: MEGFLACA YAMIL [id number] -1950 M Exm Date: JUL 08, 2024@10:00 Req Phys: KATELYNN PERSON [facility] Loc: [facility]/07-08-2024@12:07 Img Loc: CT IMAGING Service: [place] [address] (Case 22 COMPLETE) CT (AP) ABDOMEN/PELVIS W CONTRAST(CT Detailed) CPT:41302 Contrast Media : Non-ionic Iodinated Reason for [...] PLASMA .CREAT EGFR(CKD-E >90 Ref: >=60 Allergies: ([place] only) TERAZOSIN (Mar 13, 2015) Report Status: Verified Date Reported: JUL 08, 2024 Date Verified: JUL 08, 2024 Back Strip Machine Operator E-Sig: Report: CT (AP) ABDOMEN/PELVIS W CONTRAST HISTORY: POD 5, Uptrending WBC - Concern for Abscess/other infection COMPARISON: June 21, 2024 TECHNIQUE: CT abdomen and pelvis was performed after intravenous contrast. Axial, sagittal and coronal reformatted images. The study was performed at the local [place] facility and images were sent to the [place] [employer] Telerad[facility] Program (NTP) for interpretation. Number [...] as noted above READING PHYSICIAN: Celestino Blanc -[id number] 07/08/2024 13:04 EST [facility] Urbitaradiology Program [phone] (For Medical Practitioner Use Only) Attention Patients / Veterans: If you have questions or concerns about these test results, please contact your ordering provider or primary care team. Primary Interpreting Staff: RADIOLOGY,OUTSIDE SERVICE, Staff Physician / RADIOLOGY,OUTSIDE SERVICE [facility] Jun 22, 2024 11:49 AM ABSCESS DRAIN PLAC EMENT PERITONEAL (P): MEGFLACA YAMIL [id number] -1950 M Exm Date: JUN 22, 2024@11:49 Req Phys: ANGELA HOLDEN Pat Loc: [facility]/06-22-2024@17:14 Img Loc: INTERVENTIONAL RADIOLOGY Service: [place] [address] (Case [id number] COMPLETE) IR PERITONEAL/RETROPERITONEAL PER(ANI Detailed) CPT:66600 Reason for Study: diverticulitis with abscess (Case 3570 COMPLETE) IR MOD SEDATION 10-22 MIN (ANI Detailed) CPT:40769 Clinical History: IS NOT under investigation for COVID-19 or is COVID-19 negative 73 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 please place abscess drain. Contact number for responsible provider who can be reached for any questions or notifications of critical findings: [phone] n/a LAST CREATININE 0.9 (06/21/24) Report Status: Verified Date Reported: JUN 22, 2024 Date Verified: JUN 22, 2024 Back Strip Machine Operator E-Sig:/ES/LISA PENDLETON MD Report: PROCEDURES: [...] obtained. A pre-procedural Time-Out was performed per [facility] policy. The patient was placed in the supine position on the CT table. Preprocedural scan performed. The suprapubic region/lower abdominal wall was sterilely prepped and draped in the usual fashion.1% lidocaine without epinephrine was used for local anesthesia. Using real-time CT fluoroscopy, a 5 [employer] catheter was advanced into the collection in the left pelvis. A wire was coiled in the collection. The tract into the collection was dilated to accommodate the 12 Macanese locking pigtail drainage catheter. There was return [...] Primary Interpreting Staff: LISA PENDLETON MD, RADIOLOGIST (Back Strip Machine Operator) /LISA CARDONA [facility] Jun 22, 2024 11:[address] NEEDLE PLACEMEN T (P): FLACA WEAVER [id number] -1950 M Exm Date: JUN 22, 2024@11:48 Req Phys: ANGELA HOLDEN Loc: 2KC06-22-2024@17:14 Img Loc: CT IMAGING Service: [place] [address] (Case [id number] COMPLETE) CT SCAN FOR NEEDLE PLACEMENT (CT Detailed) CPT:99821 Reason for Study: l pelvic abscess drain Clinical History: Report Status: Verified Date Reported: JUN 22, 2024 Date Verified: JUN 22, 2024 Back Strip Machine Operator E-Sig:/ES/LISA PENDLETON MD Report: PROCEDURES: [...] obtained. A pre-procedural Time-Out was performed per [facility] policy. The patient was placed in the supine position on the CT table. Preprocedural scan performed. The suprapubic region/lower abdominal wall was sterilely prepped and draped in the usual fashion.1% lidocaine without epinephrine was used for local anesthesia. Using real-time CT fluoroscopy, a 5 [employer]anese [employer] catheter was advanced into the collection in the left pelvis. A wire was coiled in the collection. The tract into the collection was dilated to accommodate the 12 Macanese locking pigtail drainage catheter. There was return [...] Primary Interpreting Staff: LISA PENDLETON MD, RADIOLOGIST (Back Strip Machine Operator) /JRT LISA PENDLETON [facility] Jun 21, 2024 06:[address] (AP) ABDOMEN/PE LVIS (P): FLACA WEAVER [id number] -1950 M Exm Date: JUN 21, 2024@18:09 Req Phys: DELIA MARTINEZ Loc: [facility] EMERGENCY DEPT WALK-[facility] (Re Img Loc: CT IMAGING Service: [place] [address] (Case [id number] COMPLETE) CT (AP) ABDOMEN/PELVIS W CONTRAST(CT Detailed) CPT:23905 Contrast Media : Non-ionic Iodinated Reason for [...] PLASMA .CREAT EGFR(CKD-E >90 Ref: >=60 Allergies: ([place] only) TERAZOSIN (Mar 13, 2015) Defer to [...] 21, 2024 Date Verified: JUN 21, 2024 Back Strip Machine Operator E-Sig:/ALEXI/CARLOS A CUNNINGHAM DO Report: [...] Interpreting Staff: CARLOS A CUNNINGHAM DO, RADIOLOGIST (Back Strip Machine Operator) /CARLOS A ROWELL [facility] Pathology Reports: +/- 30 days [...] URGENCY: STATUS: COMPLETED $APHDR Reporting Lab: [facility] [CLIA# [id number]] [place] [address] - - - - - - - [...] - PATHOLOGY REPORT Accession No. [id number] - - - - - - - [...] - PATHOLOGY REPORT Accession No. [id number] - - - - - - - [...] Second circumferential surgical margin, en face; E-F: Woven Label Designer diverticula; G: Woven Label Designer section of mesentery; H: Random airport representative section of additional adipose tissue fragment. [...] One colonic tissue ring, bisected transversely. SS. (D[place] [place]: Microscopic examination performed. DIAGNOSIS: 1. Colon, sigmoid, sigmoidectomy-- - Diverticulosis with perforation and focal abscess formation 2. Colon, anastomotic rings, excision-- - Viable colonic mucosa without diagnostic abnormality /es/ EDUARDO PALOMARES MD STAFF PATHOLOGIST Signed Jul 06, 2024@10:40 Performing Laboratory: Surgical Pathology Report Performed By: [facility] [CLIA# [id number]] [place] [address] $FTR - - - - - - - - - - - - - - - - - - - - - - - - - - - - - - - - - - - - - - - - (End of report) EDUARDO PALOMARES MD [facility] Date Jul 06, 2024 - - - - - - - - - - - - - - - - - - - - - - - - - - - - - - - - - - - - - - - - FLACA WEAVER STANDARD FORM 515 ID:[id number] SEX:M :1950 AGE: 73 LOC:00712 ADM:Jun DX:DIVERTICULITIS PCP: Jatinder Cabrera /alexi/ EDUARDO PALOMARES MD STAFF PATHOLOGIST Signed: 07/06/2024 10:40 EDUARDO PALOMARES [facility] Jun 22, 2024 01:15 PM LR MICROBIOLOGY RE PORT: Reporting Lab: [facility] [CLIA# [id number]] [place] [address] Accession [UID]: [id number] [[id number]] Received: Jun 22, 2024@13:38 Collection sample: FLUID Collection date: Jun 22, 2024 13:15 Provider: ANGELA HOLDEN Comment on specimen: LLQ ABSCESS, RECEIVED IN ANAEROBIC TRANSPORT VIAL Test(s) ordered: GRAM STAIN.................... completed: Jun 22, 2024 15:03 CULTURE & SUSCEPTIBILITY...... completed: Jun 25, 2024 * BACTERIOLOGY FINAL REPORT => Jun 25, 2024 10:56 TECH CODE: [id number] GRAM STAIN: DIRECT SMEAR of specimen before [...] Performing Laboratory: Bacteriology Report Performed By: [facility] [CLIA# [id number]] [place] [address] [facility] Jun 22, 2024 01:15 PM LR MICROBIOLOGY RE PORT: Reporting Lab: [facility] [CLIA# [id number]] [place] [address] Accession [UID]: [id number] [[id number]] Received: Jun 22, 2024@13:38 Collection sample: FLUID Collection date: Jun 22, 2024 13:15 Provider: ANGELA HOLDEN Comment on specimen: LLQ ABSCESS, RECEIVED IN ANAEROBIC TRANSPORT VIAL Test(s) ordered: ANAEROBIC CULTURE............. completed: Jun 28, 2024 * BACTERIOLOGY FINAL REPORT => Jun 28, 2024 10:08 TECH CODE: [id number] CULTURE RESULTS: HEAVY GROWTH MIXED ANAEROBES Comment: including the followin+ Bacteroides fragilis 4+ Bacteroides vulgatus 4+ Clostridium innocuum Beta-lactamase negative 4+ Bacteroides caccae 4+ Parvimonas micra 4+ Bacteroides uniformis 4+ Gemella morbillorum 4+ anaerobic small, Gram Positive Rods 4+ Bacteroides thetaiotaomicron Standard workup is now complete. Bacteriology Remark(s): THIS REPORT IS FINAL =--=--=--=--=--=--=--=--=--= --=--=--=--=--=--=--=--=--=- -=--=--=--=--=--=--=-- Performing Laboratory: Bacteriology Report Performed By: [facility] [CLIA# [id number]] [place] [address] [facility] Jun 21, 2024 06:12 PM LR MICROBIOLOGY RE PORT: Reporting Lab: [facility] [CLIA# [id number]] [place] [address] Accession [UID]: [id number] [[id number]] Received: Jun 21, 2024@18:12 Collection sample: BLOOD [...] Performing Laboratory: Bacteriology Report Performed By: [facility] [CLIA# [id number]] [place] [address] [facility] Jun 21, 2024 06:11 PM LR MICROBIOLOGY RE PORT: Reporting Lab: [facility] [CLIA# [id number]] [place] [address] Accession [UID]: [id number] [[id number]] Received: Jun 21, 2024@18:11 Collection sample: BLOOD Collection date: Jun 21, 2024 18:11 Provider: DELIA MARTINEZ Comment on specimen: [facility], RECEIVED 2 BLOOD CULTURE BOTTLES Test(s) ordered: CULTURE & SUSCEPTIBILITY...... completed: Jun 27, 2024 * BACTERIOLOGY FINAL REPORT => Jun 27, 2024 14:14 TECH CODE: [id number] CULTURE RESULTS: NO GROWTH 5 DAYS Bacteriology Remark(s): THIS REPORT IS FINAL =--=--=--=--=--=--=--=--=--= --=--=--=--=--=--=--=--=--=- -=--=--=--=--=--=--=-- Performing Laboratory: Bacteriology Report Performed By: [facility] [CLIA# [id number]] [place] [address] [facility]
--- OUTSIDE RECORDS SUMMARY | 2024-07-16 07:21 | XMS_ITS ---
Author Name [facility] Address [address] [place] [address] Care Team Providers Care Pot Annealer Name Role Phone JATINDER CABRERA Primary Care [...] PART A Sep 29, 2016 PART A [id number] [phone] JUDY WEAVER PATIENT Selected Encounter This section includes the information on record at [facility] for the Encounter. Date/Time Encounter Type Encounter Description Reason Pro vider Source Jul 08, 2024 01:00 AM Inpatient Visit ADMIN PAT ACTIVTIES (PicmonicCT) SYSTEM,CIS-ARK IHE Encounter Template Text not used [...] 13, 2024 08:15 AM AMBULATORY - NONE [facility] Active, Pending, and Scheduled Orders This section includes a listing of several types of active, pending, and scheduled orders, including clinic medications orders, diagnostic test orders, procedure orders and consult orders; where the start date of the order is 45 days before the date of the Encounter or 45 days after the date of theEncounter. The data comes from all [facility]. Test Date/Time Test Type Test Details Facility Name May 28, 2024 12:00 AM Laboratory - Blood Bank Order TYPE & SCREEN - LAB BLOOD SP [facility] Jun 08, 2024 09:57 AM Laboratory - Chemi stry Order URINALYSIS URINE WC ONCE [facility] Jun 12, 2024 12:00 AM Laboratory - Chemi stry Order BNP PLASMA SP ONCE [facility] Jun 21, 2024 05:45 PM Laboratory - Blood Bank Order TYPE & SCREEN - LAB BLOOD WC [facility] Jul 03, 2024 12:00 AM Laboratory - Blood Bank Order TYPE & SCREEN - LAB BLOOD WC [facility] Jul 16, 2024 12:00 AM Laboratory - Chemi stry Order CBC BLOOD SP ONCE [facility] Jul 17, 2024 12:00 AM Laboratory - Chemi stry Order BASIC METABOLIC PANEL+MG PLASMA SP ONCE [facility] Lab Results: +/- 30 days of [...] Range Comment Jul 10, 2024 07:16 AM [facility] PHOSPHORUS Specimen Type: PLASMA No comment entered. Ordering Provider: JUANCARLOS ECHOLS S Report Released Date/Time: Jul 09, 2024 12:23 PM Reporting Lab: [facility] [address] Performing Lab: [facility] [address] PHOSPHORUS 3.0 mg/dL 2.3-4.3 Jul 10, 2024 07:16 AM [facility] BASIC METABOLIC PANEL+MG Specimen Type: PLASMA No comment entered. Ordering Provider: JUANCARLOS ECHOLS S Report Released Date/Time: Jul 09, 2024 12:23 PM Reporting Lab: [facility] [address] Performing Lab: [facility] [address] CREATININE 0.7 mg/dL 0.7-1.2 UREA NITROGEN 27 mg/dL H 8-26 GLUCOSE 104 mg/dL H 70-100 SODIUM 133 mmol/L L 136-145 POTASSIUM 4.3 mmol/L 3.5-5.1 CHLORIDE 102 mmol/L 98-107 CO2 19 mmol/L L 22-29 CALCIUM 10.1 mg/dL 8.4-10.2 MAGNESIUM 1.9 mg/dL 1.6-2.6 ANION GAP 12 mmol/L 5-15 .CREAT EGFR(CKD-EPI) >90 >60 Jul 10, 2024 07:15 AM [facility] CBC Specimen Type: BLOOD No comment entered. Ordering Provider: JUANCARLOS ECHOLS S Report Released Date/Time: Jul 09, 2024 12:23 PM Reporting Lab: [facility] [address] Performing Lab: [facility] [address] WBC 18.8 H 4.0-11.0 RBC 5.08 4.60-6.20 HGB 15.9 g/dL 13.5-17.9 HCT 46.8 41.0-54.0 MCV 92.1 fL 80.0-100.0 MCH 31.3 pg 27.0-33.0 MCHC 34.0 g/dL 32.0-37.5 PLT 479 H 150-400 MPV 10.2 fL 9.1-13.0 RDW 13.7 11.5-14.5 Jul 09, 2024 07:08 AM [facility] CBC Specimen Type: BLOOD No comment entered. Ordering Provider: QUYNH WEISS Report Released Date/Time: Jul 08, 2024 06:18 PM Reporting Lab: [facility] [address] Performing Lab: [facility] [address] WBC 15.3 H 4.0-11.0 RBC 4.91 4.60-6.20 HGB 15.1 g/dL 13.5-17.9 HCT 45.7 41.0-54.0 MCV 93.1 fL 80.0-100.0 MCH 30.8 pg 27.0-33.0 MCHC 33.0 g/dL 32.0-37.5 PLT 443 H 150-400 MPV 10.0 fL 9.1-13.0 RDW 13.5 11.5-14.5 Jul 08, 2024 10:50 AM [facility] URINALYSIS Specimen Type: URINE No comment entered. Ordering Provider: KATELYNN PERSON Report Released Date/Time: Jul 08, 2024 08:41 AM Reporting Lab: [facility] [address] Performing Lab: [facility] [address] URINE COLOR YELLOW SPECIFIC GRAVITY >1.050 H [...] NEGATIVE NEGATIVE Jul 08, 2024 09:54 AM [facility] CBC Specimen Type: BLOOD Comment: Specimen received in Lab at: [id number] Ordering Provider: JUANCARLOS ECHOLS Report Released Date/Time: Jul 07, 2024 04:49 PM Reporting Lab: [facility] [address] Performing Lab: [facility] [address] WBC 17.5 H 4.0-11.0 RBC 4.88 4.60-6.20 HGB 14.9 g/dL 13.5-17.9 HCT 45.7 41.0-54.0 MCV 93.6 fL 80.0-100.0 MCH 30.5 pg 27.0-33.0 MCHC 32.6 g/dL 32.0-37.5 PLT 472 H 150-400 MPV 10.2 fL 9.1-13.0 RDW 13.7 11.5-14.5 Jul 08, 2024 09:54 AM [facility] PHOSPHORUS Specimen Type: PLASMA Comment: Specimen received in Lab at: [id number] Ordering Provider: JUANCARLOS ECHOLS S Report Released Date/Time: Jul 07, 2024 04:49 PM Reporting Lab: [facility] [address] Performing Lab: [facility] [address] PHOSPHORUS 2.6 mg/dL 2.3-4.3 Jul 08, 2024 09:54 AM [facility] BASIC METABOLIC PANEL+MG Specimen Type: PLASMA Comment: Specimen received in Lab at: 0952 Ordering Provider: JUANCARLOS ECHOLS S Report Released Date/Time: Jul 07, 2024 04:49 PM Reporting Lab: [facility] [phone] Performing Lab: [facility] [address] CREATININE 0.9 mg/dL 0.7-1.2 UREA NITROGEN 26 mg/dL 8-26 GLUCOSE 128 mg/dL H 70-100 SODIUM 134 mmol/L L 136-145 POTASSIUM 3.4 mmol/L L 3.5-5.1 CHLORIDE 100 mmol/L 98-107 CO2 24 mmol/L 22-29 CALCIUM 9.8 mg/dL 8.4-10.2 MAGNESIUM 1.8 mg/dL 1.6-2.6 ANION GAP 10 mmol/L 5-15 .CREAT EGFR(CKD-EPI) >90 >60 Jul 07, 2024 02:00 PM [facility] C DIFF PANEL Specimen Type: FECES No comment entered. Ordering Provider: JEVON ZAZUETA Report Released Date/Time: Jul 07, 2024 12:26 PM Reporting Lab: [facility] [address] Performing Lab: [facility] [address] C DIFF TOX B GENE PCR NEGATIVE Negative Jul 07, 2024 07:41 AM [facility] PHOSPHORUS Specimen Type: PLASMA No comment entered. Ordering Provider: JEVON ZZAUETA Report Released Date/Time: Jul 06, 2024 03:44 PM Reporting Lab: [facility] [address] Performing Lab: [facility] [address] PHOSPHORUS 3.1 mg/dL 2.3-4.3 Jul 07, 2024 07:41 AM [facility] BASIC METABOLIC PANEL+MG Specimen Type: PLASMA No comment entered. Ordering Provider: JEVON ZAZUETA Report Released Date/Time: Jul 06, 2024 03:44 PM Reporting Lab: [facility] [address] Performing Lab: [facility] [address] CREATININE 0.9 mg/dL 0.7-1.2 UREA NITROGEN 20 mg/dL 8-26 GLUCOSE 157 mg/dL H 70-100 SODIUM 136 mmol/L 136-145 POTASSIUM 3.7 mmol/L 3.5-5.1 CHLORIDE 102 mmol/L 98-107 CO2 21 mmol/L L 22-29 CALCIUM 9.8 mg/dL 8.4-10.2 MAGNESIUM 1.9 mg/dL 1.6-2.6 ANION GAP 13 mmol/L 5-15 .CREAT EGFR(CKD-EPI) >90 >60 Jul 07, 2024 07:40 AM [facility] CBC Specimen Type: BLOOD No comment entered. Ordering Provider: JEVON ZAZUETA Report Released Date/Time: Jul 06, 2024 03:44 PM Reporting Lab: [facility] [address] Performing Lab: [facility] [address] WBC 21.2 H 4.0-11.0 RBC 5.09 4.60-6.20 HGB 15.9 g/dL 13.5-17.9 HCT 48.3 41.0-54.0 MCV 94.9 fL 80.0-100.0 MCH 31.2 pg 27.0-33.0 MCHC 32.9 g/dL 32.0-37.5 PLT 500 H 150-400 MPV 10.3 fL 9.1-13.0 RDW 13.6 11.5-14.5 Jul 06, 2024 07:21 AM [facility] CBC Specimen Type: BLOOD No comment entered. Ordering Provider: JEVON ZAZUETA Report Released Date/Time: Jul 05, 2024 01:22 PM Reporting Lab: [facility] [address] Performing Lab: [facility] [address] WBC 18.0 H 4.0-11.0 RBC 4.83 4.60-6.20 HGB 14.6 g/dL 13.5-17.9 HCT 45.5 41.0-54.0 MCV 94.2 fL 80.0-100.0 MCH 30.2 pg 27.0-33.0 MCHC 32.1 g/dL 32.0-37.5 PLT 368 150-400 MPV 10.4 fL 9.1-13.0 RDW 13.6 11.5-14.5 Jul 06, 2024 07:21 AM [facility] PHOSPHORUS Specimen Type: PLASMA No comment entered. Ordering Provider: JEVON ZAZUETA Report Released Date/Time: Jul 05, 2024 01:22 PM Reporting Lab: [facility] [address] Performing Lab: [facility] [address] PHOSPHORUS 3.6 mg/dL 2.3-4.3 Jul 06, 2024 07:21 AM [facility] BASIC METABOLIC PANEL+MG Specimen Type: PLASMA No comment entered. Ordering Provider: JEVON ZAZUETA Report Released Date/Time: Jul 05, 2024 01:22 PM Reporting Lab: [facility] [address] Performing Lab: [facility] [address] CREATININE 0.7 mg/dL 0.7-1.2 UREA NITROGEN 12 mg/dL 8-26 GLUCOSE 108 mg/dL H 70-100 SODIUM 138 mmol/L 136-145 POTASSIUM 3.4 mmol/L L 3.5-5.1 CHLORIDE 104 mmol/L 98-107 CO2 20 mmol/L L 22-29 CALCIUM 9.3 mg/dL 8.4-10.2 MAGNESIUM 1.9 mg/dL 1.6-2.6 ANION GAP 14 mmol/L 5-15 .CREAT EGFR(CKD-EPI) >90 >60 Jul 05, 2024 07:17 AM [facility] MAGNESIUM Specimen Type: PLASMA No comment entered. Ordering Provider: JUANCARLOS ECHOLS S Report Released Date/Time: Jul 04, 2024 09:39 AM Reporting Lab: [facility] [address] Performing Lab: [facility] [address] MAGNESIUM 2.0 mg/dL 1.6-2.6 Jul 05, 2024 07:17 AM [facility] PHOSPHORUS Specimen Type: PLASMA No comment entered. Ordering Provider: JUANCARLOS ECHOLS S Report Released Date/Time: Jul 04, 2024 09:39 AM Reporting Lab: [facility] [address] Performing Lab: [facility] [address] PHOSPHORUS 2.0 mg/dL L 2.3-4.3 Jul 05, 2024 07:17 AM [facility] BASIC METABOLIC PANEL+MG Specimen Type: PLASMA No comment entered. Ordering Provider: JUANCARLOS ECHOLS S Report Released Date/Time: Jul 04, 2024 09:39 AM Reporting Lab: [facility] [address] Performing Lab: [facility] [address] CREATININE 0.7 mg/dL 0.7-1.2 UREA NITROGEN 12 mg/dL 8-26 GLUCOSE 84 mg/dL 70-100 SODIUM 135 mmol/L L 136-145 POTASSIUM 3.8 mmol/L 3.5-5.1 CHLORIDE 104 mmol/L 98-107 CO2 24 mmol/L 22-29 CALCIUM 9.3 mg/dL 8.4-10.2 MAGNESIUM 2.0 mg/dL 1.6-2.6 ANION GAP 7 mmol/L 5-15 .CREAT EGFR(CKD-EPI) >90 >60 Jul 05, 2024 07:16 AM [facility] CBC Specimen Type: BLOOD No comment entered. Ordering Provider: JUANCARLOS ECHOLS S Report Released Date/Time: Jul 04, 2024 09:39 AM Reporting Lab: [facility] [address] Performing Lab: [facility] [address] WBC 18.3 H 4.0-11.0 RBC 4.49 L 4.60-6.20 HGB 14.1 g/dL 13.5-17.9 HCT 43.4 41.0-54.0 MCV 96.7 fL 80.0-100.0 MCH 31.4 pg 27.0-33.0 MCHC 32.5 g/dL 32.0-37.5 PLT 317 150-400 MPV 10.0 fL 9.1-13.0 RDW 13.9 11.5-14.5 Jul 04, 2024 07:17 AM [facility] PHOSPHORUS Specimen Type: PLASMA No comment entered. Ordering Provider: GABINO CAMERON Report Released Date/Time: Jul 03, 2024 06:31 PM Reporting Lab: [facility] [address] Performing Lab: [facility] [address] PHOSPHORUS 2.8 mg/dL 2.3-4.3 Jul 04, 2024 07:17 AM [facility] BASIC METABOLIC PANEL+MG Specimen Type: PLASMA No comment entered. Ordering Provider: GABINO CAMERON Report Released Date/Time: Jul 03, 2024 06:31 PM Reporting Lab: [facility] [address] Performing Lab: [facility] [address] CREATININE 0.7 mg/dL 0.7-1.2 UREA NITROGEN 16 mg/dL 8-26 GLUCOSE 129 mg/dL H 70-100 SODIUM 137 mmol/L 136-145 POTASSIUM 3.7 mmol/L 3.5-5.1 CHLORIDE 107 mmol/L 98-107 CO2 22 mmol/L 22-29 CALCIUM 9.0 mg/dL 8.4-10.2 MAGNESIUM 1.9 mg/dL 1.6-2.6 ANION GAP 8 mmol/L 5-15 .CREAT EGFR(CKD-EPI) >90 >60 Jul 04, 2024 07:16 AM [facility] CBC Specimen Type: BLOOD No comment entered. Ordering Provider: GABINO CAMERON Report Released Date/Time: Jul 03, 2024 06:31 PM Reporting Lab: [facility] [address] Performing Lab: [facility] [address] WBC 20.6 H 4.0-11.0 RBC 4.63 4.60-6.20 HGB 14.2 g/dL 13.5-17.9 HCT 43.4 41.0-54.0 MCV 93.7 fL 80.0-100.0 MCH 30.7 pg 27.0-33.0 MCHC 32.7 g/dL 32.0-37.5 PLT 329 150-400 MPV 10.4 fL 9.1-13.0 RDW 13.8 11.5-14.5 Jul 04, 2024 07:16 AM [facility] CBC & DIFF Specimen Type: BLOOD Comment: Manual Differential Performed Ordering Provider: GABINO CAMERON Report Released Date/Time: Jul 03, 2024 06:31 PM Reporting Lab: [facility] [address] Performing Lab: [facility] [address] WBC 20.6 H 4.0-11.0 RBC 4.63 4.60-6.20 [...] MORPHOLOGY PRESENT Jul 04, 2024 07:15 AM [facility] BNP Specimen Type: PLASMA No comment entered. Ordering Provider: GABINO CAMERON Report Released Date/Time: Jul 03, 2024 06:31 PM Reporting Lab: [facility] [address] Performing Lab: [facility] [address] BNP 292 pg/mL H <99 Jul 03, 2024 10:32 PM [facility] FINGERSTICK GLUCOSE Specimen Type: BLOOD Comment: Save Result Nurse Notified Ordering Provider: KATELYNN PERSON Report Released Date/Time: Jul 03, 2024 10:50 PM Reporting Lab: [facility] [address] Performing Lab: [facility] [address] FINGERSTICK GLUCOSE 126 mg/dL H 70-100 Jul 03, 2024 05:33 PM [facility] GLUCOSE Specimen Type: BLOOD Comment: Save Result Nurse Notified Ordering Provider: KATELYNN PERSON Report Released Date/Time: Jul 03, 2024 05:46 PM Reporting Lab: [facility] [address] Performing Lab: [facility] [address] FINGERSTICK GLUCOSE 141 mg/dL H 70-100 Jul 03, 2024 02:31 PM [facility] POC ABG/ELECTROLYTES Specimen Type: ARTERIAL BLOOD Comment: FIO2 = 97% Patient Temp: 36.0 C Sample Type = ARTERIAL Ordering Provider: MAZIN ARREDONDO Report Released Date/Time: Jul 03, 2024 01:48 PM Reporting Lab: [facility] [address] Performing Lab: [facility] [address] POC PH 7.387 7.35-7.45 POC PCO2 34.4 [...] H 80.0-105.0 Jul 03, 2024 01:05 PM [facility] POC ABG/ELECTROLYTES Specimen Type: ARTERIAL BLOOD Comment: FIO2 = 53% Patient Temp: 36.2 C Sample Type = ARTERIAL Ordering Provider: MAZIN ARREDONDO Report Released Date/Time: Jul 03, 2024 01:48 PM Reporting Lab: [facility] [address] Performing Lab: [facility] [address] POC PH 7.280 L 7.35-7.45 POC PCO2 [...] mm[Hg] 80.0-105.0 Jul 03, 2024 06:15 AM [facility] URINALYSIS Specimen Type: URINE No comment entered. Ordering Provider: MARYBETH POWELL Report Released Date/Time: Jun 12, 2024 04:01 PM Reporting Lab: [facility] [address] Performing Lab: [facility] [address] URINE COLOR YELLOW SPECIFIC GRAVITY 1.031 1.003-1.03 [...] 250 NEGATIVE Jul 03, 2024 06:13 AM [facility] CBC Specimen Type: BLOOD No comment entered. Ordering Provider: MARYBETH POWELL Report Released Date/Time: Jun 12, 2024 03:59 PM Reporting Lab: [facility] [address] Performing Lab: [facility] [address] WBC 15.8 H 4.0-11.0 RBC 5.11 4.60-6.20 HGB 16.1 g/dL 13.5-17.9 HCT 49.1 41.0-54.0 MCV 96.1 fL 80.0-100.0 MCH 31.5 pg 27.0-33.0 MCHC 32.8 g/dL 32.0-37.5 PLT 357 150-400 MPV 9.8 fL 9.1-13.0 RDW 13.7 11.5-14.5 Jun 24, 2024 09:50 AM [facility] BASIC METABOLIC PANEL+MG Specimen Type: PLASMA Comment: Specimen received in Lab at: 0948 Ordering Provider: JEVON ZAZUETA Report Released Date/Time: Jun 23, 2024 06:07 PM Reporting Lab: [facility] [address] Performing Lab: [facility] [address] CREATININE 0.8 mg/dL 0.7-1.2 UREA NITROGEN 13 mg/dL 8-26 GLUCOSE 135 mg/dL H 70-100 SODIUM 135 mmol/L L 136-145 POTASSIUM 3.6 mmol/L 3.5-5.1 CHLORIDE 103 mmol/L 98-107 CO2 24 mmol/L 22-29 CALCIUM 9.2 mg/dL 8.4-10.2 MAGNESIUM 1.9 mg/dL 1.6-2.6 ANION GAP 8 mmol/L 5-15 .CREAT EGFR(CKD-EPI) >90 >60 Jun 24, 2024 09:50 AM [facility] CBC Specimen Type: BLOOD Comment: Specimen received in Lab at: 0948 Ordering Provider: JEVON ZAZUETA Report Released Date/Time: Jun 23, 2024 06:07 PM Reporting Lab: [facility] [address] Performing Lab: [facility] [address] WBC 15.5 H 4.0-11.0 RBC 4.93 4.60-6.20 HGB 15.2 g/dL 13.5-17.9 HCT 46.5 41.0-54.0 MCV 94.3 fL 80.0-100.0 MCH 30.8 pg 27.0-33.0 MCHC 32.7 g/dL 32.0-37.5 PLT 223 150-400 MPV 11.4 fL 9.1-13.0 RDW 13.9 11.5-14.5 Jun 23, 2024 07:52 AM [facility] COMPREHENSIVE METABOLIC PANEL+MG Specimen Type: PLASMA No comment entered. Ordering Provider: JEVON ZAZUETA Report Released Date/Time: Jun 22, 2024 05:51 PM Reporting Lab: [facility] [address] Performing Lab: [facility] [address] CREATININE 0.7 mg/dL 0.7-1.2 UREA NITROGEN 16 [...] >90 >60 Jun 23, 2024 07:52 AM [facility] CBC & DIFF Specimen Type: BLOOD Comment: Automated Differential Performed Ordering Provider: JEVON ZAZUETA Report Released Date/Time: Jun 22, 2024 05:51 PM Reporting Lab: [facility] [address] Performing Lab: [facility] [address] WBC 14.9 H 4.0-11.0 RBC 5.09 4.60-6.20 [...] 0.1 0.0-0.1 Jun 22, 2024 06:10 PM [facility] CBC Specimen Type: BLOOD No comment entered. Ordering Provider: JEVON ZAZUETA Report Released Date/Time: Jun 22, 2024 05:51 PM Reporting Lab: [facility] [address] Performing Lab: [facility] [address] WBC 16.9 H 4.0-11.0 RBC 5.28 4.60-6.20 HGB 16.9 g/dL 13.5-17.9 HCT 50.4 41.0-54.0 MCV 95.5 fL 80.0-100.0 MCH 32.0 pg 27.0-33.0 MCHC 33.5 g/dL 32.0-37.5 PLT 223 150-400 MPV 10.9 fL 9.1-13.0 RDW 14.0 11.5-14.5 Jun 22, 2024 06:10 PM [facility] COMPREHENSIVE METABOLIC PANEL+MG Specimen Type: PLASMA No comment entered. Ordering Provider: JEVON ZAZUETA Report Released Date/Time: Jun 22, 2024 05:51 PM Reporting Lab: [facility] [address] Performing Lab: [facility] [address] CREATININE 0.7 mg/dL 0.7-1.2 UREA NITROGEN 17 [...] >90 >60 Jun 21, 2024 06:48 PM [facility] URINALYSIS Specimen Type: URINE No comment entered. Ordering Provider: DELIA MARTINEZ Report Released Date/Time: Jun 21, 2024 05:45 PM Reporting Lab: [facility] [address] Performing Lab: [facility] [address] URINE COLOR YELLOW SPECIFIC GRAVITY 1.041 H [...] 500 NEGATIVE Jun 21, 2024 05:34 PM [facility] POC CREATININE Specimen Type: BLOOD No comment entered. Ordering Provider: DELIA MARTINEZ Report Released Date/Time: Jun 21, 2024 06:07 PM Reporting Lab: [facility] [address] Performing Lab: [facility] [address] POC CREATININE 1.1 mg/dL 0.6-1.3 Jun 21, 2024 05:30 PM [facility] POC ABG/LACTATE Specimen Type: VENOUS BLOOD No comment entered. Ordering Provider: DELIA MARTINEZ Report Released Date/Time: Jun 21, 2024 06:07 PM Reporting Lab: [facility] [address] Performing Lab: [facility] [address] POC PH 7.470 H 7.31-7.41 POC PCO2 31.2 mm[Hg] L 41.00-51 .0 0 POC PO2 46 mm[Hg] H 35.0-40.0 POC TCO2 24 mmol/L 24.0-29.0 POC HCO3 22.7 mmol/L L 23.0-28.0 POC BE ECT -1 mmol/L POC SO2 85 H 70-75 POC LACTATE 1.85 mmol/L 0.90-1.70 Jun 21, 2024 05:24 PM [facility] PROTHROMBIN TIME/INR Specimen Type: PLASMA No comment entered. Ordering Provider: DELIA MARTINEZ Report Released Date/Time: Jun 21, 2024 05:30 PM Reporting Lab: [facility] [address] Performing Lab: [facility] [address] .INR 1.2 H 0.8-1.1 .PT 13.9 s H 9.4-12.5 Jun 21, 2024 05:24 PM [facility] LIPASE Specimen Type: PLASMA No comment entered. Ordering Provider: DELIA MARTINEZ Report Released Date/Time: Jun 21, 2024 05:30 PM Reporting Lab: [facility] [address] Performing Lab: [facility] [address] LIPASE 32 U/L <60 Jun 21, 2024 05:24 PM [facility] EXTRA GOLD GEL TUBE Specimen Type: SERUM No comment entered. Ordering Provider: DELIA MARTINEZ Report Released Date/Time: Jun 21, 2024 05:41 PM Reporting Lab: [facility] [address] Performing Lab: [facility] [address] EXTRA GOLD GEL TUBE RECEIVED Jun 21, 2024 05:24 PM [facility] COMPREHENSIVE METABOLIC PANEL+MG Specimen Type: PLASMA No comment entered. Ordering Provider: DELIA MARTINEZ Report Released Date/Time: Jun 21, 2024 05:30 PM Reporting Lab: [facility] [address] Performing Lab: [facility] [address] CREATININE 0.9 mg/dL 0.7-1.2 UREA NITROGEN 29 [...] mg/dL <0.5 Jun 21, 2024 05:24 PM [facility] CBC & DIFF Specimen Type: BLOOD Comment: Manual Differential Performed Ordering Provider: DELIA MARTINEZ Report Released Date/Time: Jun 21, 2024 05:30 PM Reporting Lab: [facility] [address] Performing Lab: [facility] [address] WBC 21.3 H 4.0-11.0 RBC 5.48 4.60-6.20 [...] PM 97.9 91 134/69 16 92 3 [facility] Jul 08, 2024 05:29 PM 98.2 64 121/67 16 97 3 [facility] Jul 08, 2024 09:25 AM 97.6 70 127/56 18 98 0 [facility] Social History: Smoking Status [...] 15, 2024 08:30 AM [facility] FORMER USER [facility] Tobacco Use History This section includes a history of the smoking, or tobacco-related health factors, that were collected on or before the date of the Encounter. The data comes from the [place] facility where the Encounter took place. Date/Time Smoking Status/Tobacco Use Comment F acility May 15, 2024 08:30 AM VA-TOBACCO QUIT 15 YRS OR MORE [facility] May 06, 2023 11:30 AM VA-TOBACCO FORMER USER [facility] May 06, 2023 11:30 AM VA-TOBACCO QUIT 15 YRS OR MORE [facility] Jun 04, 2022 09:00 AM VA-TOBACCO FORMER USER [facility] Jun 04, 2022 09:00 AM VA-TOBACCO QUIT 15 YRS OR MORE [facility] Jul 10, 2021 08:00 AM VA-TOBACCO FORMER USER [facility] Jul 10, 2021 08:00 AM VA-TOBACCO QUIT 5 TO < 15 YRS [facility] May 23, 2020 08:30 AM VA-TOBACCO FORMER USER [facility] May 23, 2020 08:30 AM VA-TOBACCO QUIT 5 TO < 15 YRS [facility] Mar 20, 2019 04:03 PM VA-TOBACCO FORMER USER [facility] Mar 20, 2019 04:03 PM VA-TOBACCO QUIT 5 TO < 15 YRS [facility] Mar 21, 2018 08:13 AM FORMER TOBACCO USER 7Y OR GREATE R [facility] Feb 24, 2017 09:24 AM FORMER TOBACCO USER 7Y OR GREATE R [facility] January 07, 2016 08:01 AM FORMER TOBACCO USE >1Y <7Y [facility] Feb 03, 2015 07:58 AM FORMER TOBACCO USE <1Y [facility] Feb 26, 2014 08:41 AM CURRENT TOBACCO USER [facility] May 13, 2011 01:45 PM CURRENT TOBACCO USER [facility] Advance Directives: All historical and current [...] VIEWS PA A ND LAT: FLACA WEAVER [id number] -1950 M Exm Date: JUL 08, 2024@10:09 Req Phys: KATELYNN PERSON Pat Loc: 2KG/07-08-2024@11:49 Img Loc: MAIN X-RAY Service: [place] [address] (Case 24 COMPLETE) CHEST 2 VIEWS PA AND LAT (RAD Detailed) CPT:53486 Reason for Study: Uptrending WBC, POD 5 [...] 08, 2024 Date Verified: JUL 08, 2024 [employer] 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 FINDINGS: Lungs: Clear. No focal consolidation. No pulmonary edema. Pleura: No pleural effusion or pneumothorax. Mediastinum: Normal size and contour. Bones: Unremarkable. Impression: No acute cardiopulmonary disease. READING PHYSICIAN: Sarbjit Vaughn M.D. -[id number] 07/08/2024 12:46 EST [facility] National Teleradiology Program [phone] (For Medical Practitioner Use Only) Attention Patients / Veterans: If you have questions or concerns about these test results, please contact your ordering provider or primary care team. Primary Interpreting Staff: RADIOLOGY,OUTSIDE SERVICE, Staff Physician / RADIOLOGY,OUTSIDE SERVICE [facility] Jul 08, 2024 10:[address] (AP) ABDOMEN/PE LVIS W CONTRAST: FLACA WEAVER [id number] -1950 M Exm Date: JUL 08, 2024@10:00 Req Phys: KATELYNN PERSON [facility] Loc: 2KG/07-08-2024@12:07 Img Loc: CT IMAGING Service: [place] [address] (Case 22 COMPLETE) CT (AP) ABDOMEN/PELVIS W CONTRAST(CT Detailed) CPT:05767 Contrast Media : Non-ionic Iodinated Reason for [...] PLASMA .CREAT EGFR(CKD-E >90 Ref: >=60 Allergies: (Mcgrew only) TERAZOSIN (Mar 13, 2015) Report Status: Verified Date Reported: JUL 08, 2024 Date Verified: JUL 08, 2024 Cement Sprayer Helper E-Sig: Report: CT (AP) ABDOMEN/PELVIS W CONTRAST HISTORY: POD 5, Uptrending WBC - Concern for Abscess/other infection COMPARISON: June 21, 2024 TECHNIQUE: CT abdomen and pelvis was performed after intravenous contrast. Axial, sagittal and coronal reformatted images. The study was performed at the local [facility] facility and images were sent to the [place] National Teleradiology Program (NTP) for interpretation. Number [...] as noted above READING PHYSICIAN: Celestino Blanc -[phone] 07/08/2024 13:04 [facility] IMT Teleradiology Program [phone] (For Medical Practitioner Use Only) Attention Patients / Veterans: If you have questions or concerns about these test results, please contact your ordering provider or primary care team. Primary Interpreting Staff: RADIOLOGY,OUTSIDE SERVICE, Staff Physician / RADIOLOGY,OUTSIDE SERVICE [facility] Jun 22, 2024 11:49 AM ABSCESS DRAIN PLAC EMENT PERITONEAL (P): FLACA WEAVER [id number] -1950 M Exm Date: JUN 22, 2024@11:49 Req Phys: ANGELA HOLDEN [facility] Loc: [facility]/06-22-2024@17:14 Img Loc: INTERVENTIONAL RADIOLOGY Service: [place] [address] (Case [id number] COMPLETE) IR PERITONEAL/RETROPERITONEAL PER(ANI Detailed) CPT:29877 Reason for Study: diverticulitis with abscess (Case 3570 COMPLETE) IR MOD SEDATION 10-22 MIN (ANI Detailed) CPT:91315 Clinical History: IS NOT under investigation for COVID-19 or is COVID-19 negative 73 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 please place abscess drain. Contact number for responsible provider who can be reached for any questions or notifications of critical findings: [phone] n/a LAST CREATININE 0.9 (06/21/24) Report Status: Verified Date Reported: JUN 22, 2024 Date Verified: JUN 22, 2024 Cement Sprayer Helper E-Sig:/ES/LISA PENDLETON MD Report: PROCEDURES: Placement of [...] anesthesia. Using real-time CT fluoroscopy, a 5 Wallisian Pacinianesis catheter was advanced into the collection in the left pelvis. A wire was coiled in the collection. The tract into the collection was dilated to accommodate the 12 Wallisian locking pigtail drainage catheter. There was return [...] Primary Interpreting Staff: LISA PENDLETON MD, RADIOLOGIST (Cement Sprayer Helper) /JRT LISA PENDLETON [facility] Jun 22, 2024 11:[address] NEEDLE PLACEMEN T (P): FLACA WEAVER [id number] -1950 M Exm Date: JUN 22, 2024@11:48 Req Phys: ANGELA HOLDEN [facility] Loc: 2K06-22-2024@17:14 [facility] [place]: CT IMAGING Service: [place] [address] (Case [id number] COMPLETE) CT SCAN FOR NEEDLE PLACEMENT (CT Detailed) CPT:44523 Reason for Study: l pelvic abscess drain Clinical History: Report Status: Verified Date Reported: JUN 22, 2024 Date Verified: JUN 22, 2024 Cement Sprayer Helper E-Sig:/ES/LISA PENDLETON MD Report: PROCEDURES: Placement of [...] anesthesia. Using real-time CT fluoroscopy, a 5 Wallisian Pacinianesis catheter was advanced into the collection in the left pelvis. A wire was coiled in the collection. The tract into the collection was dilated to accommodate the 12 Wallisian locking pigtail drainage catheter. There was return [...] Primary Interpreting Staff: LISA PENDLETON MD, RADIOLOGIST (Cement Sprayer Helper) /JRT LISA PENDLETON [facility] Jun 21, 2024 06:[address] (AP) ABDOMEN/PE LVIS (P): MEGFLACADARCI LOBO [id number] -1950 Ex Date: JUN 21, 2024@18:09 Req Phys: DELIA MARTINEZ Loc: [facility] (Re Img Loc: CT IMAGING Service: [place] [address] (Case [id number] COMPLETE) CT (AP) ABDOMEN/PELVIS W CONTRAST(CT Detailed) CPT:01908 Contrast Media : Non-ionic Iodinated Reason for [...] PLASMA .CREAT EGFR(CKD-E >90 Ref: >=60 Allergies: ([facility] only) TERAZOSIN (Mar 13, 2015) Defer to [...] 21, 2024 Date Verified: JUN 21, 2024 Cement Sprayer Helper E-Sig:/ALEXI/CARLOS A CUNNINGHAM DO Report: EXAMINATION: CT [...] Interpreting Staff: CARLOS A CUNNINGHAM DO, RADIOLOGIST (Cement Sprayer Helper) /CARLOS A ROWELL [facility] Pathology Reports: +/- 30 days of [...] COSIGNER: URGENCY: STATUS: COMPLETED $APHDR Reporting Lab: [facility] [CLIA# [id number]] [place] [address] - - - - - - - [...] - PATHOLOGY REPORT Accession No. [id number] - - - - - - - [...] - PATHOLOGY REPORT Accession No. [id number] - - - - - - - [...] Second circumferential surgical margin, en face; E-F: Certified Flex Endoscope Reprocessor diverticula; G: Certified Flex Endoscope Reprocessor section of mesentery; H: Random sales representative business courses section of additional adipose tissue fragment. SS. [...] One colonic tissue ring, bisected transversely. SS. ([facility]: Microscopic examination performed. DIAGNOSIS: 1. Colon, sigmoid, sigmoidectomy-- - Diverticulosis with perforation and focal abscess formation 2. Colon, anastomotic rings, excision-- - Viable colonic mucosa without diagnostic abnormality /es/ EDUARDO PALOMARES MD STAFF PATHOLOGIST Signed Jul 06, 2024@10:40 Performing Laboratory: Surgical Pathology Report Performed By: [facility] [CLIA# [id number]] [place] [address] $FTR - - - - - - [...] - - FLACA WEAVER STANDARD FORM 515 ID:[id number] SEX:M :1950 AGE: 73 LOC:[id number] ADM:Jun DX:DIVERTICULITIS PCP: Jatinder Cabrera /alexi/ EDUARDO PALOMARES MD STAFF PATHOLOGIST Signed: 07/06/2024 10:40 EDUARDO PALOMARES [facility] Jun 22, 2024 01:15 PM LR MICROBIOLOGY RE PORT: Reporting Lab: [facility] [CLIA# [id number]] [place] [address] Accession [UID]: [id number] [[id number]] Received: Jun 22, 2024@13:38 Collection sample: FLUID Collection date: Jun 22, 2024 13:15 Provider: ANGELA HOLDEN Comment on specimen: LLQ ABSCESS, RECEIVED IN ANAEROBIC TRANSPORT VIAL Test(s) ordered: GRAM STAIN.................... completed: Jun 22, 2024 15:03 CULTURE & SUSCEPTIBILITY...... completed: Jun 25, 2024 * BACTERIOLOGY FINAL REPORT => Jun 25, 2024 10:56 TECH CODE: [id number] GRAM STAIN: DIRECT SMEAR of specimen before [...] -=--=--=--=--=--=--=-- Performing Laboratory: Bacteriology Report Performed By: [facility] [CLIA# [id number]] [place] [address] [facility] Jun 22, 2024 01:15 PM LR MICROBIOLOGY RE PORT: Reporting Lab: [facility] [CLIA# [id number]] [place] [address] Accession [UID]: [id number] [[id number]] Received: Jun 22, 2024@13:38 Collection sample: FLUID Collection date: Jun 22, 2024 13:15 Provider: ANGELA HOLDEN Comment on specimen: LLQ ABSCESS, RECEIVED IN ANAEROBIC TRANSPORT VIAL Test(s) ordered: ANAEROBIC CULTURE............. completed: Jun 28, 2024 * BACTERIOLOGY FINAL REPORT => Jun 28, 2024 10:08 TECH CODE: [id number] CULTURE RESULTS: HEAVY GROWTH MIXED ANAEROBES Comment: including the followin+ Bacteroides fragilis 4+ Bacteroides vulgatus 4+ Clostridium innocuum Beta-lactamase negative 4+ Bacteroides caccae 4+ Parvimonas micra 4+ Bacteroides uniformis 4+ Gemella morbillorum 4+ anaerobic small, Gram Positive Rods 4+ Bacteroides thetaiotaomicron Standard workup is now complete. Bacteriology Remark(s): THIS REPORT IS FINAL =--=--=--=--=--=--=--=--=--= --=--=--=--=--=--=--=--=--=- -=--=--=--=--=--=--=-- Performing Laboratory: Bacteriology Report Performed By: [facility] [CLIA# [id number]] [place] [address] [facility] Jun 21, 2024 06:12 PM LR MICROBIOLOGY RE PORT: Reporting Lab: [facility] [CLIA# [id number]] [place] [address] Accession [UID]: [id number] [[id number]] Received: Jun 21, 2024@18:12 Collection sample: BLOOD [...] -=--=--=--=--=--=--=-- Performing Laboratory: Bacteriology Report Performed By: [facility] [CLIA# [id number]] [place] [address] [facility] Jun 21, 2024 06:11 PM LR MICROBIOLOGY RE PORT: Reporting Lab: [facility] [CLIA# [id number]] [place] [address] Accession [UID]: [id number] [[id number]] Received: Jun 21, 2024@18:11 Collection sample: BLOOD [...] -=--=--=--=--=--=--=-- Performing Laboratory: Bacteriology Report Performed By: [facility] [CLIA# [id number]] [place] [address] [place] [address] Jun 08, 2024 11:00 AM LR MICROBIOLOGY RE PORT: Reporting Lab: [facility] [CLIA# [id number]] [place] [address] Accession [UID]: [id number] [[id number]] Received: Jun 08, 2024@11:00 Collection sample: URINE Collection date: Jun 08, 2024 11:00 Provider: MARYBETH POWELL Comment on specimen: urine Test(s) ordered: CULTURE & SUSCEPTIBILITY...... completed: Jun 09, 2024 * BACTERIOLOGY FINAL REPORT => Jun 09, 2024 19:12 TECH CODE: [id number] CULTURE RESULTS: ESCHERICHIA COLI - Quantity: >100,000 [...] -=--=--=--=--=--=--=-- Performing Laboratory: Bacteriology Report Performed By: [facility] [CLIA# [id number]] [place] [address] [facility] Encounter Notes: All associated encounter notes This section contains the clinical notes associated to the Encounter. Date/Time Encounter Note(s) Provider Source Jul 08, 2024 01:00 AM CRITICAL CARE UNIT NOTE: LOCAL TITLE: [facility] INPATIENT FLOWSHEET STANDARD TITLE: CRITICAL CARE UNIT NOTE DATE OF NOTE: JUL 08, 2024@01:00 ENTRY DATE: JUL 09, 2024@14:34:16 AUTHOR: PETERSON,KELLY EXP COSIGNER: URGENCY: STATUS: COMPLETED This is a place aranda only. Please see [employer] to view document. /es/ [employer] SYSTEM ICU DOCUMENT IMPORT Signed: 07/09/2024 14:34 SYSTEM,[facility] Jul 08, 2024 01:00 AM CRITICAL CARE UNIT NOTE: LOCAL TITLE: [facility] RESPIRATORY THERAPY FLOWSHEET STANDARD TITLE: CRITICAL CARE UNIT NOTE DATE OF NOTE: JUL 08, 2024@01:00 ENTRY DATE: JUL 09, 2024@15:03:09 AUTHOR: PETERSONCIS-[employer]Shopline EXP COSIGNER: URGENCY: STATUS: COMPLETED This is a place aranda only. Please see [employer] to view document. /es/ [employer] SYSTEM ICU DOCUMENT IMPORT Signed: 07/09/2024 15:03 SYSTEM,[facility]
--- OUTSIDE RECORDS SUMMARY | 2024-07-16 07:21 | XMS_ITS ---
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 Date/Time Encounter Type Encounter Description Reason Pro vider Source Jul 09, 2024 06:47 AM Inpatient Visit DAILY HOSPITALIZATION DATA [facility] Encounter Template Text not used by [place] [...] 20 appointments. The data comes from all [place] treatment facilities. Appointment Date/Time Appointment Type Appointme nt Facility Name Jul 13, 2024 08:15 AM AMBULATORY - NONE [facility] Active, Pending, and Scheduled Orders This section includes a listing of several types of active, pending, and scheduled orders, including clinic medications orders, diagnostic test orders, procedure orders and consult orders; where the start date of the order is 45 days before the date of the Encounter or 45 days after the date of theEncounter. The data comes from all [place] treatment facilities. Test Date/Time Test Type Test Details Facility Name May 28, 2024 12:00 AM Laboratory - Blood Bank Order TYPE & SCREEN - LAB BLOOD SP [facility] Jun 08, 2024 09:57 AM Laboratory - Chemi stry Order URINALYSIS URINE WC ONCE [facility] Jun 12, 2024 12:00 AM Laboratory - Chemi stry Order BNP PLASMA SP ONCE [facility] Jun 21, 2024 05:45 PM Laboratory - Blood Bank Order TYPE & SCREEN - LAB BLOOD [facility] Jul 03, 2024 12:00 AM Laboratory - Blood Bank Order TYPE & SCREEN - LAB BLOOD [facility] Jul 16, 2024 12:00 AM Laboratory - Chemi stry Order CBC BLOOD SP ONCE [facility] Jul 17, 2024 12:00 AM Laboratory - Chemi stry Order BASIC METABOLIC PANEL+MG PLASMA SP ONCE [facility] Lab Results: +/- 30 days [...] Range Comment Jul 10, 2024 07:16 AM [facility] PHOSPHORUS Specimen Type: PLASMA No comment entered. Ordering Provider: JUANCARLOS ECHOLS S Report Released Date/Time: Jul 09, 2024 12:23 PM Reporting Lab: [facility] [address] Performing Lab: [facility] [address] PHOSPHORUS 3.0 mg/dL 2.3-4.3 Jul 10, 2024 07:16 AM [facility] BASIC METABOLIC PANEL+MG Specimen Type: PLASMA No comment entered. Ordering Provider: JUANCARLOS ECHOLS S Report Released Date/Time: Jul 09, 2024 12:23 PM Reporting Lab: [facility] [address] Performing Lab: [facility] [address] CREATININE 0.7 mg/dL 0.7-1.2 UREA NITROGEN 27 mg/dL H 8-26 GLUCOSE 104 mg/dL H 70-100 SODIUM 133 mmol/L L 136-145 POTASSIUM 4.3 mmol/L 3.5-5.1 CHLORIDE 102 mmol/L 98-107 CO2 19 mmol/L L 22-29 CALCIUM 10.1 mg/dL 8.4-10.2 MAGNESIUM 1.9 mg/dL 1.6-2.6 ANION GAP 12 mmol/L 5-15 .CREAT EGFR(CKD-EPI) >90 >60 Jul 10, 2024 07:15 AM [facility] CBC Specimen Type: BLOOD No comment entered. Ordering Provider: JUANCARLOS ECHOLS Report Released Date/Time: Jul 09, 2024 12:23 PM Reporting Lab: [facility] [address] Performing Lab: [facility] [address] WBC 18.8 H 4.0-11.0 RBC 5.08 4.60-6.20 HGB 15.9 g/dL 13.5-17.9 HCT 46.8 41.0-54.0 MCV 92.1 fL 80.0-100.0 MCH 31.3 pg 27.0-33.0 MCHC 34.0 g/dL 32.0-37.5 PLT 479 H 150-400 MPV 10.2 fL 9.1-13.0 RDW 13.7 11.5-14.5 Jul 09, 2024 07:08 AM [facility] CBC Specimen Type: BLOOD No comment entered. Ordering Provider: QUYNH WEISS AV Report Released Date/Time: Jul 08, 2024 06:18 PM Reporting Lab: [facility] [address] Performing Lab: [facility] [address] WBC 15.3 H 4.0-11.0 RBC 4.91 4.60-6.20 HGB 15.1 g/dL 13.5-17.9 HCT 45.7 41.0-54.0 MCV 93.1 fL 80.0-100.0 MCH 30.8 pg 27.0-33.0 MCHC 33.0 g/dL 32.0-37.5 PLT 443 H 150-400 MPV 10.0 fL 9.1-13.0 RDW 13.5 11.5-14.5 Jul 08, 2024 10:50 AM [facility] URINALYSIS Specimen Type: URINE No comment entered. Ordering Provider: KATELYNN PERSON Report Released Date/Time: Jul 08, 2024 08:41 AM Reporting Lab: [facility] [address] Performing Lab: [facility] [address] URINE COLOR YELLOW SPECIFIC GRAVITY >1.050 H [...] NEGATIVE NEGATIVE Jul 08, 2024 09:54 AM [facility] CBC Specimen Type: BLOOD Comment: Specimen received in Lab at: 0952 Ordering Provider: JUANCARLOS ECHOLS Report Released Date/Time: Jul 07, 2024 04:49 PM Reporting Lab: [facility] [address] Performing Lab: [facility] [address] WBC 17.5 H 4.0-11.0 RBC 4.88 4.60-6.20 HGB 14.9 g/dL 13.5-17.9 HCT 45.7 41.0-54.0 MCV 93.6 fL 80.0-100.0 MCH 30.5 pg 27.0-33.0 MCHC 32.6 g/dL 32.0-37.5 PLT 472 H 150-400 MPV 10.2 fL 9.1-13.0 RDW 13.7 11.5-14.5 Jul 08, 2024 09:54 AM [facility] PHOSPHORUS Specimen Type: PLASMA Comment: Specimen received in Lab at: 0952 Ordering Provider: BALAJADIA,MAR IA S Report Released Date/Time: Jul 07, 2024 04:49 PM Reporting Lab: [facility] [address] Performing Lab: [facility] [address] PHOSPHORUS 2.6 mg/dL 2.3-4.3 Jul 08, 2024 09:54 AM [facility] BASIC METABOLIC PANEL+MG Specimen Type: PLASMA Comment: Specimen received in Lab at: 0952 Ordering Provider: JUANCARLOS ECHOLS S Report Released Date/Time: Jul 07, 2024 04:49 PM Reporting Lab: [facility] [address] Performing Lab: [facility] [address] CREATININE 0.9 mg/dL 0.7-1.2 UREA NITROGEN 26 mg/dL 8-26 GLUCOSE 128 mg/dL H 70-100 SODIUM 134 mmol/L L 136-145 POTASSIUM 3.4 mmol/L L 3.5-5.1 CHLORIDE 100 mmol/L 98-107 CO2 24 mmol/L 22-29 CALCIUM 9.8 mg/dL 8.4-10.2 MAGNESIUM 1.8 mg/dL 1.6-2.6 ANION GAP 10 mmol/L 5-15 .CREAT EGFR(CKD-EPI) >90 >60 Jul 07, 2024 02:00 PM [facility] C DIFF PANEL Specimen Type: FECES No comment entered. Ordering Provider: JEVON ZAZUETA Report Released Date/Time: Jul 07, 2024 12:26 PM Reporting Lab: [facility] [address] Performing Lab: [facility] [address] C DIFF TOX B GENE PCR NEGATIVE Negative Jul 07, 2024 07:41 AM [facility] PHOSPHORUS Specimen Type: PLASMA No comment entered. Ordering Provider: JEVON ZAZUETA Report Released Date/Time: Jul 06, 2024 03:44 PM Reporting Lab: [facility] [address] Performing Lab: [facility] [address] PHOSPHORUS 3.1 mg/dL 2.3-4.3 Jul 07, 2024 07:41 AM [facility] BASIC METABOLIC PANEL+MG Specimen Type: PLASMA No comment entered. Ordering Provider: JEVON ZAZUETA Report Released Date/Time: Jul 06, 2024 03:44 PM Reporting Lab: [facility] [address] Performing Lab: [facility] [address] CREATININE 0.9 mg/dL 0.7-1.2 UREA NITROGEN 20 mg/dL 8-26 GLUCOSE 157 mg/dL H 70-100 SODIUM 136 mmol/L 136-145 POTASSIUM 3.7 mmol/L 3.5-5.1 CHLORIDE 102 mmol/L 98-107 CO2 21 mmol/L L 22-29 CALCIUM 9.8 mg/dL 8.4-10.2 MAGNESIUM 1.9 mg/dL 1.6-2.6 ANION GAP 13 mmol/L 5-15 .CREAT EGFR(CKD-EPI) >90 >60 Jul 07, 2024 07:40 AM [facility] CBC Specimen Type: BLOOD No comment entered. Ordering Provider: JEVON ZAZUETA Report Released Date/Time: Jul 06, 2024 03:44 PM Reporting Lab: [facility] [address] Performing Lab: [facility] [address] WBC 21.2 H 4.0-11.0 RBC 5.09 4.60-6.20 HGB 15.9 g/dL 13.5-17.9 HCT 48.3 41.0-54.0 MCV 94.9 fL 80.0-100.0 MCH 31.2 pg 27.0-33.0 MCHC 32.9 g/dL 32.0-37.5 PLT 500 H 150-400 MPV 10.3 fL 9.1-13.0 RDW 13.6 11.5-14.5 Jul 06, 2024 07:21 AM [facility] CBC Specimen Type: BLOOD No comment entered. Ordering Provider: JEVON ZAZUETA Report Released Date/Time: Jul 05, 2024 01:22 PM Reporting Lab: [facility] [address] Performing Lab: [facility] [address] WBC 18.0 H 4.0-11.0 RBC 4.83 4.60-6.20 HGB 14.6 g/dL 13.5-17.9 HCT 45.5 41.0-54.0 MCV 94.2 fL 80.0-100.0 MCH 30.2 pg 27.0-33.0 MCHC 32.1 g/dL 32.0-37.5 PLT 368 150-400 MPV 10.4 fL 9.1-13.0 RDW 13.6 11.5-14.5 Jul 06, 2024 07:21 AM [facility] PHOSPHORUS Specimen Type: PLASMA No comment entered. Ordering Provider: JEVON ZAZUETA Report Released Date/Time: Jul 05, 2024 01:22 PM Reporting Lab: [facility] [address] Performing Lab: [facility] [address] PHOSPHORUS 3.6 mg/dL 2.3-4.3 Jul 06, 2024 07:21 AM [facility] BASIC METABOLIC PANEL+MG Specimen Type: PLASMA No comment entered. Ordering Provider: JEVON ZAZUETA Report Released Date/Time: Jul 05, 2024 01:22 PM Reporting Lab: [facility] [address] Performing Lab: [facility] [address] CREATININE 0.7 mg/dL 0.7-1.2 UREA NITROGEN 12 mg/dL 8-26 GLUCOSE 108 mg/dL H 70-100 SODIUM 138 mmol/L 136-145 POTASSIUM 3.4 mmol/L L 3.5-5.1 CHLORIDE 104 mmol/L 98-107 CO2 20 mmol/L L 22-29 CALCIUM 9.3 mg/dL 8.4-10.2 MAGNESIUM 1.9 mg/dL 1.6-2.6 ANION GAP 14 mmol/L 5-15 .CREAT EGFR(CKD-EPI) >90 >60 Jul 05, 2024 07:17 AM [facility] MAGNESIUM Specimen Type: PLASMA No comment entered. Ordering Provider: JUANCARLOS ECHOLS S Report Released Date/Time: Jul 04, 2024 09:39 AM Reporting Lab: [facility] [address] Performing Lab: [facility] [address] MAGNESIUM 2.0 mg/dL 1.6-2.6 Jul 05, 2024 07:17 AM [facility] PHOSPHORUS Specimen Type: PLASMA No comment entered. Ordering Provider: JUANCARLOS ECHOLS S Report Released Date/Time: Jul 04, 2024 09:39 AM Reporting Lab: [facility] [address] Performing Lab: [facility] [address] PHOSPHORUS 2.0 mg/dL L 2.3-4.3 Jul 05, 2024 07:17 AM [facility] BASIC METABOLIC PANEL+MG Specimen Type: PLASMA No comment entered. Ordering Provider: JUANCARLOS ECHOLS S Report Released Date/Time: Jul 04, 2024 09:39 AM Reporting Lab: [facility] [address] Performing Lab: [facility] [address] CREATININE 0.7 mg/dL 0.7-1.2 UREA NITROGEN 12 mg/dL 8-26 GLUCOSE 84 mg/dL 70-100 SODIUM 135 mmol/L L 136-145 POTASSIUM 3.8 mmol/L 3.5-5.1 CHLORIDE 104 mmol/L 98-107 CO2 24 mmol/L 22-29 CALCIUM 9.3 mg/dL 8.4-10.2 MAGNESIUM 2.0 mg/dL 1.6-2.6 ANION GAP 7 mmol/L 5-15 .CREAT EGFR(CKD-EPI) >90 >60 Jul 05, 2024 07:16 AM [facility] CBC Specimen Type: BLOOD No comment entered. Ordering Provider: JUANCARLOS ECHOLS S Report Released Date/Time: Jul 04, 2024 09:39 AM Reporting Lab: [facility] [address] Performing Lab: [facility] [address] WBC 18.3 H 4.0-11.0 RBC 4.49 L 4.60-6.20 HGB 14.1 g/dL 13.5-17.9 HCT 43.4 41.0-54.0 MCV 96.7 fL 80.0-100.0 MCH 31.4 pg 27.0-33.0 MCHC 32.5 g/dL 32.0-37.5 PLT 317 150-400 MPV 10.0 fL 9.1-13.0 RDW 13.9 11.5-14.5 Jul 04, 2024 07:17 AM [facility] PHOSPHORUS Specimen Type: PLASMA No comment entered. Ordering Provider: GABINO CAMERON Report Released Date/Time: Jul 03, 2024 06:31 PM Reporting Lab: [facility] [address] Performing Lab: [facility] [address] PHOSPHORUS 2.8 mg/dL 2.3-4.3 Jul 04, 2024 07:17 AM [facility] BASIC METABOLIC PANEL+MG Specimen Type: PLASMA No comment entered. Ordering Provider: GABINO CAMERON Report Released Date/Time: Jul 03, 2024 06:31 PM Reporting Lab: [facility] [address] Performing Lab: [facility] [address] CREATININE 0.7 mg/dL 0.7-1.2 UREA NITROGEN 16 mg/dL 8-26 GLUCOSE 129 mg/dL H 70-100 SODIUM 137 mmol/L 136-145 POTASSIUM 3.7 mmol/L 3.5-5.1 CHLORIDE 107 mmol/L 98-107 CO2 22 mmol/L 22-29 CALCIUM 9.0 mg/dL 8.4-10.2 MAGNESIUM 1.9 mg/dL 1.6-2.6 ANION GAP 8 mmol/L 5-15 .CREAT EGFR(CKD-EPI) >90 >60 Jul 04, 2024 07:16 AM [facility] CBC Specimen Type: BLOOD No comment entered. Ordering Provider: GABINO CAMERON Report Released Date/Time: Jul 03, 2024 06:31 PM Reporting Lab: [facility] [address] Performing Lab: [facility] [address] WBC 20.6 H 4.0-11.0 RBC 4.63 4.60-6.20 HGB 14.2 g/dL 13.5-17.9 HCT 43.4 41.0-54.0 MCV 93.7 fL 80.0-100.0 MCH 30.7 pg 27.0-33.0 MCHC 32.7 g/dL 32.0-37.5 PLT 329 150-400 MPV 10.4 fL 9.1-13.0 RDW 13.8 11.5-14.5 Jul 04, 2024 07:16 AM [facility] CBC & DIFF Specimen Type: BLOOD Comment: Manual Differential Performed Ordering Provider: GABINO CAMERON Report Released Date/Time: Jul 03, 2024 06:31 PM Reporting Lab: [facility] [address] Performing Lab: [facility] [address] WBC 20.6 H 4.0-11.0 RBC 4.63 4.60-6.20 [...] MORPHOLOGY PRESENT Jul 04, 2024 07:15 AM [facility] BNP Specimen Type: PLASMA No comment entered. Ordering Provider: GABINO CAMERON Report Released Date/Time: Jul 03, 2024 06:31 PM Reporting Lab: [facility] [address] Performing Lab: [facility] [address] BNP 292 pg/mL H <99 Jul 03, 2024 10:32 PM [facility] FINGERSTICK GLUCOSE Specimen Type: BLOOD Comment: Save Result Nurse Notified Ordering Provider: KATELYNN PERSON Report Released Date/Time: Jul 03, 2024 10:50 PM Reporting Lab: [facility] [address] Performing Lab: [facility] [address] FINGERSTICK GLUCOSE 126 mg/dL H 70-100 Jul 03, 2024 05:33 PM [facility] FINGERSTICK GLUCOSE Specimen Type: BLOOD Comment: Save Result Nurse Notified Ordering Provider: KATELYNN PERSON Report Released Date/Time: Jul 03, 2024 05:46 PM Reporting Lab: [facility] [address] Performing Lab: [facility] [address] FINGERSTICK GLUCOSE 141 mg/dL H 70-100 Jul 03, 2024 02:31 PM [facility] POC ABG/ELECTROLYTES Specimen Type: ARTERIAL BLOOD Comment: FIO2 = 97% Patient Temp: 36.0 C Sample Type = ARTERIAL Ordering Provider: MAZIN ARREDONDO Report Released Date/Time: Jul 03, 2024 01:48 PM Reporting Lab: [facility] [address] Performing Lab: [facility] [address] POC PH 7.387 7.35-7.45 POC PCO2 34.4 [...] H 80.0-105.0 Jul 03, 2024 01:05 PM [facility] POC ABG/ELECTROLYTES Specimen Type: ARTERIAL BLOOD Comment: FIO2 = 53% Patient Temp: 36.2 C Sample Type = ARTERIAL Ordering Provider: MAZIN ARREDONDO Report Released Date/Time: Jul 03, 2024 01:48 PM Reporting Lab: [facility] [address] Performing Lab: [facility] [address] POC PH 7.280 L 7.35-7.45 POC PCO2 [...] mm[Hg] 80.0-105.0 Jul 03, 2024 06:15 AM [facility] URINALYSIS Specimen Type: URINE No comment entered. Ordering Provider: MARYBETH POWELL Report Released Date/Time: Jun 12, 2024 04:01 PM Reporting Lab: [facility] [address] Performing Lab: [facility] [address] URINE COLOR YELLOW SPECIFIC GRAVITY 1.031 1.003-1.03 [...] 250 NEGATIVE Jul 03, 2024 06:13 AM [facility] CBC Specimen Type: BLOOD No comment entered. Ordering Provider: MARYBETH POWELL Report Released Date/Time: Jun 12, 2024 03:59 PM Reporting Lab: [facility] [address] Performing Lab: [facility] [address] WBC 15.8 H 4.0-11.0 RBC 5.11 4.60-6.20 HGB 16.1 g/dL 13.5-17.9 HCT 49.1 41.0-54.0 MCV 96.1 fL 80.0-100.0 MCH 31.5 pg 27.0-33.0 MCHC 32.8 g/dL 32.0-37.5 PLT 357 150-400 MPV 9.8 fL 9.1-13.0 RDW 13.7 11.5-14.5 Jun 24, 2024 09:50 AM [facility] BASIC METABOLIC PANEL+MG Specimen Type: PLASMA Comment: Specimen received in Lab at: 0948 Ordering Provider: JEVON ZAZUETA Report Released Date/Time: Jun 23, 2024 06:07 PM Reporting Lab: [facility] [address] Performing Lab: [facility] [address] CREATININE 0.8 mg/dL 0.7-1.2 UREA NITROGEN 13 mg/dL 8-26 GLUCOSE 135 mg/dL H 70-100 SODIUM 135 mmol/L L 136-145 POTASSIUM 3.6 mmol/L 3.5-5.1 CHLORIDE 103 mmol/L 98-107 CO2 24 mmol/L 22-29 CALCIUM 9.2 mg/dL 8.4-10.2 MAGNESIUM 1.9 mg/dL 1.6-2.6 ANION GAP 8 mmol/L 5-15 .CREAT EGFR(CKD-EPI) >90 >60 Jun 24, 2024 09:50 AM [facility] CBC Specimen Type: BLOOD Comment: Specimen received in Lab at: 0948 Ordering Provider: JEVON ZAZUETA Report Released Date/Time: Jun 23, 2024 06:07 PM Reporting Lab: [facility] [address] Performing Lab: [facility] [address] WBC 15.5 H 4.0-11.0 RBC 4.93 4.60-6.20 HGB 15.2 g/dL 13.5-17.9 HCT 46.5 41.0-54.0 MCV 94.3 fL 80.0-100.0 MCH 30.8 pg 27.0-33.0 MCHC 32.7 g/dL 32.0-37.5 PLT 223 150-400 MPV 11.4 fL 9.1-13.0 RDW 13.9 11.5-14.5 Jun 23, 2024 07:52 AM [facility] COMPREHENSIVE METABOLIC PANEL+MG Specimen Type: PLASMA No comment entered. Ordering Provider: JEVON ZAZUETA Report Released Date/Time: Jun 22, 2024 05:51 PM Reporting Lab: [facility] [address] Performing Lab: [facility] [address] CREATININE 0.7 mg/dL 0.7-1.2 UREA NITROGEN 16 [...] >90 >60 Jun 23, 2024 07:52 AM [facility] CBC & DIFF Specimen Type: BLOOD Comment: Automated Differential Performed Ordering Provider: JEVON ZAZUETA Report Released Date/Time: Jun 22, 2024 05:51 PM Reporting Lab: [facility] [address] Performing Lab: [facility] [address] WBC 14.9 H 4.0-11.0 RBC 5.09 4.60-6.20 [...] 0.1 0.0-0.1 Jun 22, 2024 06:10 PM [facility] COMPREHENSIVE METABOLIC PANEL+MG Specimen Type: PLASMA No comment entered. Ordering Provider: JEVON ZAZUETA Report Released Date/Time: Jun 22, 2024 05:51 PM Reporting Lab: [facility] [address] Performing Lab: [facility] [address] CREATININE 0.7 mg/dL 0.7-1.2 UREA NITROGEN 17 [...] >90 >60 Jun 22, 2024 06:10 PM [facility] CBC Specimen Type: BLOOD No comment entered. Ordering Provider: JEVON ZAZUETA Report Released Date/Time: Jun 22, 2024 05:51 PM Reporting Lab: [facility] [address] Performing Lab: [facility] [address] WBC 16.9 H 4.0-11.0 RBC 5.28 4.60-6.20 HGB 16.9 g/dL 13.5-17.9 HCT 50.4 41.0-54.0 MCV 95.5 fL 80.0-100.0 MCH 32.0 pg 27.0-33.0 MCHC 33.5 g/dL 32.0-37.5 PLT 223 150-400 MPV 10.9 fL 9.1-13.0 RDW 14.0 11.5-14.5 Jun 21, 2024 06:48 PM [facility] URINALYSIS Specimen Type: URINE No comment entered. Ordering Provider: DELIA MARTINEZ Report Released Date/Time: Jun 21, 2024 05:45 PM Reporting Lab: [facility] [address] Performing Lab: [facility] [address] URINE COLOR YELLOW SPECIFIC GRAVITY 1.041 H [...] 500 NEGATIVE Jun 21, 2024 05:34 PM [facility] POC CREATININE Specimen Type: BLOOD No comment entered. Ordering Provider: DELIA MARTINEZ Report Released Date/Time: Jun 21, 2024 06:07 PM Reporting Lab: [facility] [address] Performing Lab: [facility] [address] POC CREATININE 1.1 mg/dL 0.6-1.3 Jun 21, 2024 05:30 PM [facility] POC ABG/LACTATE Specimen Type: VENOUS BLOOD No comment entered. Ordering Provider: DELIA MARTINEZ Report Released Date/Time: Jun 21, 2024 06:07 PM Reporting Lab: [facility] [address] Performing Lab: [facility] [address] POC PH 7.470 H 7.31-7.41 POC PCO2 31.2 mm[Hg] L 41.00-51 .0 0 POC PO2 46 mm[Hg] H 35.0-40.0 POC TCO2 24 mmol/L 24.0-29.0 POC HCO3 22.7 mmol/L L 23.0-28.0 POC BE ECT -1 mmol/L POC SO2 85 H 70-75 POC LACTATE 1.85 mmol/L 0.90-1.70 Jun 21, 2024 05:24 PM [facility] PROTHROMBIN TIME/INR Specimen Type: PLASMA No comment entered. Ordering Provider: DELIA MARTINEZ Report Released Date/Time: Jun 21, 2024 05:30 PM Reporting Lab: [facility] [address] Performing Lab: [facility] [address] .INR 1.2 H 0.8-1.1 .PT 13.9 s H 9.4-12.5 Jun 21, 2024 05:24 PM [facility] LIPASE Specimen Type: PLASMA No comment entered. Ordering Provider: DELIA MARTINEZ Report Released Date/Time: Jun 21, 2024 05:30 PM Reporting Lab: [facility] [address] Performing Lab: [facility] [address] LIPASE 32 U/L <60 Jun 21, 2024 05:24 PM [facility] EXTRA GOLD GEL TUBE Specimen Type: SERUM No comment entered. Ordering Provider: DELIA MARTINEZ Report Released Date/Time: Jun 21, 2024 05:41 PM Reporting Lab: [facility] [address] Performing Lab: [facility] [address] EXTRA GOLD GEL TUBE RECEIVED Jun 21, 2024 05:24 PM [facility] COMPREHENSIVE METABOLIC PANEL+MG Specimen Type: PLASMA No comment entered. Ordering Provider: DELIA MARTINEZ Report Released Date/Time: Jun 21, 2024 05:30 PM Reporting Lab: [facility] [id number] Performing Lab: [facility] [address] CREATININE 0.9 mg/dL 0.7-1.2 UREA NITROGEN 29 [...] mg/dL <0.5 Jun 21, 2024 05:24 PM [facility] CBC & DIFF Specimen Type: BLOOD Comment: Manual Differential Performed Ordering Provider: DELIA MARTINEZ Report Released Date/Time: Jun 21, 2024 05:30 PM Reporting Lab: [facility] [id number] Performing Lab: [facility] [id number] WBC 21.3 H 4.0-11.0 RBC 5.48 4.60-6.20 [...] 11:47 PM 97.9 59 151/73 18 [facility] Jul 09, 2024 04:39 PM 97.5 55 120/65 18 97 0 [facility] Jul 09, 2024 09:36 AM 98.1 67 134/78 16 99 1 [facility] Jul 09, 2024 05:09 AM 1 [facility] Jul 09, 2024 03:28 AM 5 [facility] Social History: Smoking Status [...] AM VA-TOBACCO QUIT 15 YRS OR MORE [facility] Tobacco Use History This section includes a history of the smoking, or tobacco-related health factors, that were collected on or before the date of the Encounter. The data comes from the [place] facility where the Encounter took place. Date/Time Smoking Status/Tobacco Use Comment F acility May 15, 2024 08:30 AM VA-TOBACCO QUIT 15 YRS OR MORE [facility] May 06, 2023 11:30 AM VA-TOBACCO FORMER USER [facility] May 06, 2023 11:30 AM VA-TOBACCO QUIT 15 YRS OR MORE [facility] Jun 04, 2022 09:00 AM VA-TOBACCO FORMER USER [facility] Jun 04, 2022 09:00 AM VA-TOBACCO QUIT 15 YRS OR MORE [facility] Jul 10, 2021 08:00 AM VA-TOBACCO FORMER USER [facility] Jul 10, 2021 08:00 AM VA-TOBACCO QUIT 5 TO < 15 YRS [facility] May 23, 2020 08:30 AM VA-TOBACCO FORMER USER [facility] May 23, 2020 08:30 AM VA-TOBACCO QUIT 5 TO < 15 YRS [facility] Mar 20, 2019 04:03 PM VA-TOBACCO FORMER USER [facility] Mar 20, 2019 04:03 PM VA-TOBACCO QUIT 5 TO < 15 YRS [facility] Mar 21, 2018 08:13 AM FORMER TOBACCO USER 7Y OR GREATE R [facility] Feb 24, 2017 09:24 AM FORMER TOBACCO USER 7Y OR GREATE R [facility] January 07, 2016 08:01 AM FORMER TOBACCO USE >1Y <7Y [facility] Feb 03, 2015 07:58 AM FORMER TOBACCO USE <1Y [facility] Feb 26, 2014 08:41 AM CURRENT TOBACCO USER [facility] May 13, 2011 01:45 PM CURRENT TOBACCO USER [facility] Advance Directives: All historical and [...] PA A ND LAT: FLACA WEAVER YAMIL [id number] -1950 M Exm Date: JUL 08, 2024@10:09 Req Phys: KATELYNN PERSON Pat Loc: 2KG/07-08-2024@11:49 Img Loc: MAIN X-RAY Service: [place] [address] (Case 24 COMPLETE) CHEST 2 VIEWS PA AND LAT (RAD Detailed) CPT:70865 Reason for Study: Uptrending WBC, POD 5 [...] 08, 2024 Date Verified: JUL 08, [address] Justice E-Sig: Report: CHEST 2 VIEWS PA AND [...] cardiopulmonary disease. READING PHYSICIAN: Sarbjit Vaughn M.D. -[phone] 07/08/2024 12:46 EST [facility] National [facility] Program [phone] (For Medical Practitioner Use Only) Attention Patients / Veterans: If you have questions or concerns about these test results, please contact your ordering provider or primary care team. Primary Interpreting Staff: RADIOLOGY,OUTSIDE SERVICE, Staff Physician / RADIOLOGY,OUTSIDE SERVICE [facility] Jul 08, 2024 10:[address] (AP) ABDOMEN/PE LVIS W CONTRAST: MEGFLACA YAMIL [id number] -1950 M Exm Date: JUL 08, 2024@10:00 Req Phys: KATELYNN PERSON [facility] Loc: [facility]/07-08-2024@12:07 Img Loc: CT IMAGING Service: [place] [address] (Case 22 COMPLETE) CT (AP) ABDOMEN/PELVIS W CONTRAST(CT Detailed) CPT:74937 Contrast Media : Non-ionic Iodinated Reason for [...] PLASMA .CREAT EGFR(CKD-E >90 Ref: >=60 Allergies: ([place] only) TERAZOSIN (Mar 13, 2015) Report Status: Verified Date Reported: JUL 08, 2024 Date Verified: JUL 08, [address] Justice E-Sig: Report: CT (AP) ABDOMEN/PELVIS W CONTRAST [...] as noted above READING PHYSICIAN: Celestino Blanc -[id number] 07/08/2024 13:04 EST [facility] [phone] (For Medical Practitioner Use Only) Attention Patients / Veterans: If you have questions or concerns about these test results, please contact your ordering provider or primary care team. Primary Interpreting Staff: RADIOLOGY,OUTSIDE SERVICE, Staff Physician / RADIOLOGY,OUTSIDE SERVICE [facility] Jun 22, 2024 11:49 AM ABSCESS DRAIN PLAC EMENT PERITONEAL (P): MEGFLACA YAMIL [id number] -1950 M Exm Date: JUN 22, 2024@11:49 Req Phys: ANGELA HOLDEN Pat Loc: [facility]/06-22-2024@17:14 Img Loc: INTERVENTIONAL RADIOLOGY Service: [place] [address] (Case [id number] COMPLETE) IR PERITONEAL/RETROPERITONEAL PER(ANI Detailed) CPT:35377 Reason for Study: diverticulitis with abscess (Case [id number] COMPLETE) IR MOD SEDATION 10-22 MIN (ANI Detailed) CPT:73824 Clinical History: [place] IS NOT under investigation for COVID-19 or is COVID-19 negative 73 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 please place abscess drain. Contact number for responsible provider who can be reached for any questions or notifications of critical findings: [phone] n/a LAST CREATININE 0.9 (06/21/24) Report Status: Verified Date Reported: JUN 22, 2024 Date Verified: JUN 22, [address] Justice E-Sig:/ES/LISA PENDLETON MD Report: PROCEDURES: Placement of [...] obtained. A pre-procedural Time-Out was performed per [facility] policy. The patient was placed in the supine position on the CT table. Preprocedural scan performed. The suprapubic region/lower abdominal wall was sterilely prepped and draped in the usual fashion.1% lidocaine without epinephrine was used for local anesthesia. Using real-time CT fluoroscopy, a 5 Nigerien eyetok catheter was advanced into the collection in the left pelvis. A wire was coiled in the collection. The tract into the collection was dilated to accommodate the 12 Nigerien locking pigtail drainage catheter. There was return [...] Primary Interpreting Staff: LISA PENDLETON MD, RADIOLOGIST (Appeals Court Associate Justice) /LISA CARDONA [facility] Jun 22, 2024 11:[address] NEEDLE PLACEMEN T (P): FLACA WEAVER [id number] -1950 M Exm Date: JUN 22, 2024@11:48 Req Phys: ANGELA HOLDEN Loc: 2KC06-22-2024@17:14 Img Loc: CT IMAGING Service: [place] [address] (Case [id number] COMPLETE) CT SCAN FOR NEEDLE PLACEMENT (CT Detailed) CPT:36188 Reason for Study: l pelvic abscess drain Clinical History: Report Status: Verified Date Reported: JUN 22, 2024 Date Verified: JUN 22, [address] Justice E-Sig:/ES/LISA PENDLETON MD Report: PROCEDURES: Placement of [...] obtained. A pre-procedural Time-Out was performed per [facility] policy. The patient was placed in the supine position on the CT table. Preprocedural scan performed. The suprapubic region/lower abdominal wall was sterilely prepped and draped in the usual fashion.1% lidocaine without epinephrine was used for local anesthesia. Using real-time CT fluoroscopy, a 5 Nigerien [employer]us Oncologyesis catheter was advanced into the collection in the left pelvis. A wire was coiled in the collection. The tract into the collection was dilated to accommodate the 12 Nigerien locking pigtail drainage catheter. There was return [...] Primary Interpreting Staff: LISA PENDLETON MD, RADIOLOGIST (Appeals Court Associate Justice) /JRT LISA PENDLETON [facility] Jun 21, 2024 06:[address] (AP) ABDOMEN/PE LVIS (P): FLACA WEAVER [id number] -1950 M Exm Date: JUN 21, 2024@18:09 Req Phys: DELIA MARTINEZ Loc: [facility] EMERGENCY DEPT WALK-IN (Re Img Loc: CT IMAGING Service: [place] [address] (Case [id number] COMPLETE) CT (AP) ABDOMEN/PELVIS W CONTRAST(CT Detailed) CPT:55528 Contrast Media : Non-ionic Iodinated Reason for [...] PLASMA .CREAT EGFR(CKD-E >90 Ref: >=60 Allergies: ([place] only) TERAZOSIN (Mar 13, 2015) Defer to [...] 21, 2024 Date Verified: JUN 21, [address] Justice E-Sig:/ALEXI/CARLOS A CUNNINGHAM DO Report: EXAMINATION: CT [...] Interpreting Staff: CARLOS A CUNNINGHAM DO, RADIOLOGIST (Appeals Court Associate Justice) /CARLOS A ROWELL [facility] Pathology Reports: +/- 30 days [...] COSIGNER: URGENCY: STATUS: COMPLETED $APHDR Reporting Lab: [facility] [CLIA# [id number]] [place] [address] - - - - - - - [...] - PATHOLOGY REPORT Accession No. [id number] - - - - - - - [...] - PATHOLOGY REPORT Accession No. [id number] - - - - - - - [...] Second circumferential surgical margin, en face; E-F: Duralumin Metalworker diverticula; G: Duralumin Metalworker section of mesentery; H: Random automobile rental representative section of additional adipose tissue fragment. [...] One colonic tissue ring, bisected transversely. SS. (D)[facility] MICROSCOPIC DESCRIPTION: Microscopic examination performed. DIAGNOSIS: 1. Colon, sigmoid, sigmoidectomy-- - Diverticulosis with perforation and focal abscess formation 2. Colon, anastomotic rings, excision-- - Viable colonic mucosa without diagnostic abnormality /es/ EDUARDO PALOMARES MD STAFF PATHOLOGIST Signed Jul 06, 2024@10:40 Performing Laboratory: Surgical Pathology Report Performed By: [facility] [CLIA# [id number]] [place] [address] $FTR - - - - - - - - - - - - - - - - - - - - - - - - - - - - - - - - - - - - - - - - (End of report) EDUARDO PALOMARES MD [facility] Date Jul 06, 2024 - - - - - - - - - - - - - - - - - - - - - - - - - - - - - - - - - - - - - - - - FLACA WEAVER STANDARD FORM 515 ID:[id number] SEX:M :1950 AGE: 73 LOC:03165 ADM:Jun DX:DIVERTICULITIS PCP: Jatinder Cabrera /alexi/ EDUARDO PALOMARES MD STAFF PATHOLOGIST Signed: 07/06/2024 10:40 EDUARDO PALOMARES [facility] Jun 22, 2024 01:15 PM LR MICROBIOLOGY RE PORT: Reporting Lab: [facility] [CLIA# [id number]] [place] [address] Accession [UID]: [id number] [[id number]] Received: Jun 22, 2024@13:38 Collection sample: FLUID Collection date: Jun 22, 2024 13:15 Provider: ANGELA HOLDEN Comment on specimen: LLQ ABSCESS, RECEIVED IN ANAEROBIC TRANSPORT VIAL Test(s) ordered: GRAM STAIN.................... completed: Jun 22, 2024 15:03 CULTURE & SUSCEPTIBILITY...... completed: Jun 25, 2024 * BACTERIOLOGY FINAL REPORT => Jun 25, 2024 10:56 TECH CODE: [id number] GRAM STAIN: DIRECT SMEAR of specimen before [...] -=--=--=--=--=--=--=-- Performing Laboratory: Bacteriology Report Performed By: [facility] [CLIA# [id number]] [place] [address] [facility] Jun 22, 2024 01:15 PM LR MICROBIOLOGY RE PORT: Reporting Lab: [facility] [CLIA# [id number]] [place] [address] Accession [UID]: [id number] [[id number]] Received: Jun 22, 2024@13:38 Collection sample: FLUID Collection date: Jun 22, 2024 13:15 Provider: ANGELA HOLDEN Comment on specimen: LLQ ABSCESS, RECEIVED IN ANAEROBIC TRANSPORT VIAL Test(s) ordered: ANAEROBIC CULTURE............. completed: Jun 28, 2024 * BACTERIOLOGY FINAL REPORT => Jun 28, 2024 10:08 TECH CODE: [id number] CULTURE RESULTS: HEAVY GROWTH MIXED ANAEROBES Comment: including the followin+ Bacteroides fragilis 4+ Bacteroides vulgatus 4+ Clostridium innocuum Beta-lactamase negative 4+ Bacteroides caccae 4+ Parvimonas micra 4+ Bacteroides uniformis 4+ Gemella morbillorum 4+ anaerobic small, Gram Positive Rods 4+ Bacteroides thetaiotaomicron Standard workup is now complete. Bacteriology Remark(s): THIS REPORT IS FINAL =--=--=--=--=--=--=--=--=--= --=--=--=--=--=--=--=--=--=- -=--=--=--=--=--=--=-- Performing Laboratory: Bacteriology Report Performed By: [facility] [CLIA# [id number]] [place] [address] [facility] Jun 21, 2024 06:12 PM LR MICROBIOLOGY RE PORT: Reporting Lab: [facility] [CLIA# [id number]] [place] [address] Accession [UID]: [id number] [[id number]] Received: Jun 21, 2024@18:12 Collection sample: BLOOD [...] -=--=--=--=--=--=--=-- Performing Laboratory: Bacteriology Report Performed By: [facility] [CLIA# [id number]] [place] [address] [facility] Jun 21, 2024 06:11 PM LR MICROBIOLOGY RE PORT: Reporting Lab: [facility] [CLIA# [id number]] [place] [address] Accession [UID]: [id number] [[id number]] Received: Jun 21, 2024@18:11 Collection sample: BLOOD Collection date: Jun 21, 2024 18:11 Provider: DELIA MARTINEZ Comment on specimen: [facility], RECEIVED 2 BLOOD CULTURE BOTTLES Test(s) ordered: CULTURE & SUSCEPTIBILITY...... completed: Jun 27, 2024 * BACTERIOLOGY FINAL REPORT => Jun 27, 2024 14:14 TECH CODE: [id number] CULTURE RESULTS: NO GROWTH 5 DAYS Bacteriology Remark(s): THIS REPORT IS FINAL =--=--=--=--=--=--=--=--=--= --=--=--=--=--=--=--=--=--=- -=--=--=--=--=--=--=-- Performing Laboratory: Bacteriology Report Performed By: [facility] [CLIA# [id number]] [place] [address] [facility]
--- OUTSIDE RECORDS SUMMARY | 2024-07-16 07:22 | XMS_ITS | Encounter Summary ---
Author Name [facility] [place] [facility] [place] [facility] [place] Address [address] [place] [address] Care Team Providers Care Promotional Representative Name Role Phone JATINDER CABRERA Primary Care [...] PART A Sep 29, 2016 PART A [id number] [phone] JUDY WEAVER PATIENT Selected Encounter This section includes the information on record at [place] for the Encounter. Date/Time Encounter Type Encounter Description Reason Pro vider Source Jul 10, 2024 09:45 AM Inpatient Visit EVENT (HISTORICAL) IHE Encounter Template [...] 2024 08:15 AM AMBULATORY - NONE [facility] Active, Pending, and Scheduled Orders [...] TYPE & SCREEN - LAB BLOOD SP [facility] Jun 08, 2024 09:57 AM Laboratory - Chemi stry Order URINALYSIS URINE WC ONCE [facility] Jun 12, 2024 12:00 AM Laboratory - Chemi stry Order BNP PLASMA SP ONCE [facility] Jun 21, 2024 05:45 PM Laboratory - Blood Bank Order TYPE & SCREEN - LAB BLOOD [facility] Jul 03, 2024 12:00 AM Laboratory - Blood Bank Order TYPE & SCREEN - LAB BLOOD [facility] Jul 16, 2024 12:00 AM Laboratory - Chemi stry Order CBC BLOOD SP ONCE [facility] Jul 17, 2024 12:00 AM Laboratory - Chemi stry Order BASIC METABOLIC PANEL+MG PLASMA SP ONCE [facility] Lab Results: +/- 30 days of [...] Range Comment Jul 10, 2024 07:16 AM [facility] PHOSPHORUS Specimen Type: PLASMA No comment entered. Ordering Provider: JUANCARLOS ECHOLS S Report Released Date/Time: Jul 09, 2024 12:23 PM Reporting Lab: [facility] [address] Performing Lab: [facility] [address] PHOSPHORUS 3.0 mg/dL 2.3-4.3 Jul 10, 2024 07:16 AM [facility] BASIC METABOLIC PANEL+MG Specimen Type: PLASMA No comment entered. Ordering Provider: JUANCARLOS ECHOLS S Report Released Date/Time: Jul 09, 2024 12:23 PM Reporting Lab: [facility] [address] Performing Lab: [facility] [address] CREATININE 0.7 mg/dL 0.7-1.2 UREA NITROGEN 27 mg/dL H 8-26 GLUCOSE 104 mg/dL H 70-100 SODIUM 133 mmol/L L 136-145 POTASSIUM 4.3 mmol/L 3.5-5.1 CHLORIDE 102 mmol/L 98-107 CO2 19 mmol/L L 22-29 CALCIUM 10.1 mg/dL 8.4-10.2 MAGNESIUM 1.9 mg/dL 1.6-2.6 ANION GAP 12 mmol/L 5-15 .CREAT EGFR(CKD-EPI) >90 >60 Jul 10, 2024 07:15 AM [facility] CBC Specimen Type: BLOOD No comment entered. Ordering Provider: JUANCARLOS ECHOLS Report Released Date/Time: Jul 09, 2024 12:23 PM Reporting Lab: [facility] [address] Performing Lab: [facility] [address] WBC 18.8 H 4.0-11.0 RBC 5.08 4.60-6.20 HGB 15.9 g/dL 13.5-17.9 HCT 46.8 41.0-54.0 MCV 92.1 fL 80.0-100.0 MCH 31.3 pg 27.0-33.0 MCHC 34.0 g/dL 32.0-37.5 PLT 479 H 150-400 MPV 10.2 fL 9.1-13.0 RDW 13.7 11.5-14.5 Jul 09, 2024 07:08 AM [facility] CBC Specimen Type: BLOOD No comment entered. Ordering Provider: QUYNH WESIS Report Released Date/Time: Jul 08, 2024 06:18 PM Reporting Lab: [facility] [address] Performing Lab: [facility] [address] WBC 15.3 H 4.0-11.0 RBC 4.91 4.60-6.20 HGB 15.1 g/dL 13.5-17.9 HCT 45.7 41.0-54.0 MCV 93.1 fL 80.0-100.0 MCH 30.8 pg 27.0-33.0 MCHC 33.0 g/dL 32.0-37.5 PLT 443 H 150-400 MPV 10.0 fL 9.1-13.0 RDW 13.5 11.5-14.5 Jul 08, 2024 10:50 AM [facility] URINALYSIS Specimen Type: URINE No comment entered. Ordering Provider: KATELYNN PERSON Report Released Date/Time: Jul 08, 2024 08:41 AM Reporting Lab: [facility] [address] Performing Lab: [facility] [address] URINE COLOR YELLOW SPECIFIC GRAVITY >1.050 H [...] NEGATIVE NEGATIVE Jul 08, 2024 09:54 AM [facility] CBC Specimen Type: BLOOD Comment: Specimen received in Lab at: 0952 Ordering Provider: JUANCARLOS ECHOLS Report Released Date/Time: Jul 07, 2024 04:49 PM Reporting Lab: [facility] [address] Performing Lab: [facility] [address] WBC 17.5 H 4.0-11.0 RBC 4.88 4.60-6.20 HGB 14.9 g/dL 13.5-17.9 HCT 45.7 41.0-54.0 MCV 93.6 fL 80.0-100.0 MCH 30.5 pg 27.0-33.0 MCHC 32.6 g/dL 32.0-37.5 PLT 472 H 150-400 MPV 10.2 fL 9.1-13.0 RDW 13.7 11.5-14.5 Jul 08, 2024 09:54 AM [facility] PHOSPHORUS Specimen Type: PLASMA Comment: Specimen received in Lab at: 0952 Ordering Provider: BALAJADIA,MAR IA S Report Released Date/Time: Jul 07, 2024 04:49 PM Reporting Lab: [facility] [address] Performing Lab: [facility] [address] PHOSPHORUS 2.6 mg/dL 2.3-4.3 Jul 08, 2024 09:54 AM [facility] BASIC METABOLIC PANEL+MG Specimen Type: PLASMA Comment: Specimen received in Lab at: 0952 Ordering Provider: JUANCARLOS ECHOLS Report Released Date/Time: Jul 07, 2024 04:49 PM Reporting Lab: [facility] [address] Performing Lab: [facility] [address] CREATININE 0.9 mg/dL 0.7-1.2 UREA NITROGEN 26 mg/dL 8-26 GLUCOSE 128 mg/dL H 70-100 SODIUM 134 mmol/L L 136-145 POTASSIUM 3.4 mmol/L L 3.5-5.1 CHLORIDE 100 mmol/L 98-107 CO2 24 mmol/L 22-29 CALCIUM 9.8 mg/dL 8.4-10.2 MAGNESIUM 1.8 mg/dL 1.6-2.6 ANION GAP 10 mmol/L 5-15 .CREAT EGFR(CKD-EPI) >90 >60 Jul 07, 2024 02:00 PM [facility] C DIFF PANEL Specimen Type: FECES No comment entered. Ordering Provider: JEVON ZAZUETA Report Released Date/Time: Jul 07, 2024 12:26 PM Reporting Lab: [facility] [address] Performing Lab: [facility] [address] C DIFF TOX B GENE PCR NEGATIVE Negative Jul 07, 2024 07:41 AM [facility] PHOSPHORUS Specimen Type: PLASMA No comment entered. Ordering Provider: JEVON ZAZUETA Report Released Date/Time: Jul 06, 2024 03:44 PM Reporting Lab: [facility] [address] Performing Lab: [facility] [address] PHOSPHORUS 3.1 mg/dL 2.3-4.3 Jul 07, 2024 07:41 AM [facility] BASIC METABOLIC PANEL+MG Specimen Type: PLASMA No comment entered. Ordering Provider: JEVON ZAZUETA Report Released Date/Time: Jul 06, 2024 03:44 PM Reporting Lab: [facility] [address] Performing Lab: [facility] [address] CREATININE 0.9 mg/dL 0.7-1.2 UREA NITROGEN 20 mg/dL 8-26 GLUCOSE 157 mg/dL H 70-100 SODIUM 136 mmol/L 136-145 POTASSIUM 3.7 mmol/L 3.5-5.1 CHLORIDE 102 mmol/L 98-107 CO2 21 mmol/L L 22-29 CALCIUM 9.8 mg/dL 8.4-10.2 MAGNESIUM 1.9 mg/dL 1.6-2.6 ANION GAP 13 mmol/L 5-15 .CREAT EGFR(CKD-EPI) >90 >60 Jul 07, 2024 07:40 AM [facility] CBC Specimen Type: BLOOD No comment entered. Ordering Provider: JEVON ZAZUETA Report Released Date/Time: Jul 06, 2024 03:44 PM Reporting Lab: [facility] [address] Performing Lab: [facility] [address] WBC 21.2 H 4.0-11.0 RBC 5.09 4.60-6.20 HGB 15.9 g/dL 13.5-17.9 HCT 48.3 41.0-54.0 MCV 94.9 fL 80.0-100.0 MCH 31.2 pg 27.0-33.0 MCHC 32.9 g/dL 32.0-37.5 PLT 500 H 150-400 MPV 10.3 fL 9.1-13.0 RDW 13.6 11.5-14.5 Jul 06, 2024 07:21 AM [facility] CBC Specimen Type: BLOOD No comment entered. Ordering Provider: JEVON ZAZUETA Report Released Date/Time: Jul 05, 2024 01:22 PM Reporting Lab: [facility] [address] Performing Lab: [facility] [address] WBC 18.0 H 4.0-11.0 RBC 4.83 4.60-6.20 HGB 14.6 g/dL 13.5-17.9 HCT 45.5 41.0-54.0 MCV 94.2 fL 80.0-100.0 MCH 30.2 pg 27.0-33.0 MCHC 32.1 g/dL 32.0-37.5 PLT 368 150-400 MPV 10.4 fL 9.1-13.0 RDW 13.6 11.5-14.5 Jul 06, 2024 07:21 AM [facility] PHOSPHORUS Specimen Type: PLASMA No comment entered. Ordering Provider: JEVON ZAZUETA Report Released Date/Time: Jul 05, 2024 01:22 PM Reporting Lab: [facility] [address] Performing Lab: [facility] [address] PHOSPHORUS 3.6 mg/dL 2.3-4.3 Jul 06, 2024 07:21 AM [facility] BASIC METABOLIC PANEL+MG Specimen Type: PLASMA No comment entered. Ordering Provider: JEVON ZAZUETA Report Released Date/Time: Jul 05, 2024 01:22 PM Reporting Lab: [facility] [address] Performing Lab: [facility] [address] CREATININE 0.7 mg/dL 0.7-1.2 UREA NITROGEN 12 mg/dL 8-26 GLUCOSE 108 mg/dL H 70-100 SODIUM 138 mmol/L 136-145 POTASSIUM 3.4 mmol/L L 3.5-5.1 CHLORIDE 104 mmol/L 98-107 CO2 20 mmol/L L 22-29 CALCIUM 9.3 mg/dL 8.4-10.2 MAGNESIUM 1.9 mg/dL 1.6-2.6 ANION GAP 14 mmol/L 5-15 .CREAT EGFR(CKD-EPI) >90 >60 Jul 05, 2024 07:17 AM [facility] MAGNESIUM Specimen Type: PLASMA No comment entered. Ordering Provider: JUANCARLOS ECHOLS S Report Released Date/Time: Jul 04, 2024 09:39 AM Reporting Lab: [facility] [address] Performing Lab: [facility] [address] MAGNESIUM 2.0 mg/dL 1.6-2.6 Jul 05, 2024 07:17 AM [facility] PHOSPHORUS Specimen Type: PLASMA No comment entered. Ordering Provider: JUANCARLOS ECHOLS S Report Released Date/Time: Jul 04, 2024 09:39 AM Reporting Lab: [facility] [address] Performing Lab: [facility] [address] PHOSPHORUS 2.0 mg/dL L 2.3-4.3 Jul 05, 2024 07:17 AM [facility] BASIC METABOLIC PANEL+MG Specimen Type: PLASMA No comment entered. Ordering Provider: JUANCARLOS ECHOLS S Report Released Date/Time: Jul 04, 2024 09:39 AM Reporting Lab: [facility] [address] Performing Lab: [facility] [address] CREATININE 0.7 mg/dL 0.7-1.2 UREA NITROGEN 12 mg/dL 8-26 GLUCOSE 84 mg/dL 70-100 SODIUM 135 mmol/L L 136-145 POTASSIUM 3.8 mmol/L 3.5-5.1 CHLORIDE 104 mmol/L 98-107 CO2 24 mmol/L 22-29 CALCIUM 9.3 mg/dL 8.4-10.2 MAGNESIUM 2.0 mg/dL 1.6-2.6 ANION GAP 7 mmol/L 5-15 .CREAT EGFR(CKD-EPI) >90 >60 Jul 05, 2024 07:16 AM [facility] CBC Specimen Type: BLOOD No comment entered. Ordering Provider: JUANCARLOS ECHOLS S Report Released Date/Time: Jul 04, 2024 09:39 AM Reporting Lab: [facility] [address] Performing Lab: [facility] [address] WBC 18.3 H 4.0-11.0 RBC 4.49 L 4.60-6.20 HGB 14.1 g/dL 13.5-17.9 HCT 43.4 41.0-54.0 MCV 96.7 fL 80.0-100.0 MCH 31.4 pg 27.0-33.0 MCHC 32.5 g/dL 32.0-37.5 PLT 317 150-400 MPV 10.0 fL 9.1-13.0 RDW 13.9 11.5-14.5 Jul 04, 2024 07:17 AM [facility] BASIC METABOLIC PANEL+MG Specimen Type: PLASMA No comment entered. Ordering Provider: GABINO CAMERON Report Released Date/Time: Jul 03, 2024 06:31 PM Reporting Lab: [facility] [address] Performing Lab: [facility] [address] CREATININE 0.7 mg/dL 0.7-1.2 UREA NITROGEN 16 mg/dL 8-26 GLUCOSE 129 mg/dL H 70-100 SODIUM 137 mmol/L 136-145 POTASSIUM 3.7 mmol/L 3.5-5.1 CHLORIDE 107 mmol/L 98-107 CO2 22 mmol/L 22-29 CALCIUM 9.0 mg/dL 8.4-10.2 MAGNESIUM 1.9 mg/dL 1.6-2.6 ANION GAP 8 mmol/L 5-15 .CREAT EGFR(CKD-EPI) >90 >60 Jul 04, 2024 07:17 AM [facility] PHOSPHORUS Specimen Type: PLASMA No comment entered. Ordering Provider: GABINO CAMERON Report Released Date/Time: Jul 03, 2024 06:31 PM Reporting Lab: [facility] [address] Performing Lab: [facility] [address] PHOSPHORUS 2.8 mg/dL 2.3-4.3 Jul 04, 2024 07:16 AM [facility] CBC Specimen Type: BLOOD No comment entered. Ordering Provider: GABINO CAMERON Report Released Date/Time: Jul 03, 2024 06:31 PM Reporting Lab: [facility] [address] Performing Lab: [facility] [address] WBC 20.6 H 4.0-11.0 RBC 4.63 4.60-6.20 HGB 14.2 g/dL 13.5-17.9 HCT 43.4 41.0-54.0 MCV 93.7 fL 80.0-100.0 MCH 30.7 pg 27.0-33.0 MCHC 32.7 g/dL 32.0-37.5 PLT 329 150-400 MPV 10.4 fL 9.1-13.0 RDW 13.8 11.5-14.5 Jul 04, 2024 07:16 AM [facility] CBC & DIFF Specimen Type: BLOOD Comment: Manual Differential Performed Ordering Provider: GABINO CAMERON Report Released Date/Time: Jul 03, 2024 06:31 PM Reporting Lab: [facility] [address] Performing Lab: [facility] [address] WBC 20.6 H 4.0-11.0 RBC 4.63 4.60-6.20 [...] MORPHOLOGY PRESENT Jul 04, 2024 07:15 AM [facility] BNP Specimen Type: PLASMA No comment entered. Ordering Provider: GABINO CAMERON Report Released Date/Time: Jul 03, 2024 06:31 PM Reporting Lab: [facility] [address] Performing Lab: [facility] [address] BNP 292 pg/mL H <99 Jul 03, 2024 10:32 PM [facility] FINGERSTICK GLUCOSE Specimen Type: BLOOD Comment: Save Result Nurse Notified Ordering Provider: KATELYNN PERSON Report Released Date/Time: Jul 03, 2024 10:50 PM Reporting Lab: [facility] [address] Performing Lab: [facility] [address] FINGERSTICK GLUCOSE 126 mg/dL H 70-100 Jul 03, 2024 05:33 PM [facility] FINGERSTICK GLUCOSE Specimen Type: BLOOD Comment: Save Result Nurse Notified Ordering Provider: KATELYNN PERSON Report Released Date/Time: Jul 03, 2024 05:46 PM Reporting Lab: [facility] [address] Performing Lab: [facility] [address] FINGERSTICK GLUCOSE 141 mg/dL H 70-100 Jul 03, 2024 02:31 PM [facility] POC ABG/ELECTROLYTES Specimen Type: ARTERIAL BLOOD Comment: FIO2 = 97% Patient Temp: 36.0 C Sample Type = ARTERIAL Ordering Provider: MAZIN ARREDONDO Report Released Date/Time: Jul 03, 2024 01:48 PM Reporting Lab: [facility] [address] Performing Lab: [facility] [address] POC PH 7.387 7.35-7.45 POC PCO2 34.4 [...] H 80.0-105.0 Jul 03, 2024 01:05 PM [facility] POC ABG/ELECTROLYTES Specimen Type: ARTERIAL BLOOD Comment: FIO2 = 53% Patient Temp: 36.2 C Sample Type = ARTERIAL Ordering Provider: MAZIN ARREDONDO Report Released Date/Time: Jul 03, 2024 01:48 PM Reporting Lab: [facility] [address] Performing Lab: [facility] [address] POC PH 7.280 L 7.35-7.45 POC PCO2 [...] mm[Hg] 80.0-105.0 Jul 03, 2024 06:15 AM [facility] URINALYSIS Specimen Type: URINE No comment entered. Ordering Provider: MARYBETH POWELL Report Released Date/Time: Jun 12, 2024 04:01 PM Reporting Lab: [facility] [address] Performing Lab: [facility] [address] URINE COLOR YELLOW SPECIFIC GRAVITY 1.031 1.003-1.03 [...] 250 NEGATIVE Jul 03, 2024 06:13 AM [facility] CBC Specimen Type: BLOOD No comment entered. Ordering Provider: MARYBETH POWELL Report Released Date/Time: Jun 12, 2024 03:59 PM Reporting Lab: [facility] [address] Performing Lab: [facility] [address] WBC 15.8 H 4.0-11.0 RBC 5.11 4.60-6.20 HGB 16.1 g/dL 13.5-17.9 HCT 49.1 41.0-54.0 MCV 96.1 fL 80.0-100.0 MCH 31.5 pg 27.0-33.0 MCHC 32.8 g/dL 32.0-37.5 PLT 357 150-400 MPV 9.8 fL 9.1-13.0 RDW 13.7 11.5-14.5 Jun 24, 2024 09:50 AM [facility] BASIC METABOLIC PANEL+MG Specimen Type: PLASMA Comment: Specimen received in Lab at: 0948 Ordering Provider: JEVON ZAZUETA Report Released Date/Time: Jun 23, 2024 06:07 PM Reporting Lab: [facility] [address] Performing Lab: [facility] [address] CREATININE 0.8 mg/dL 0.7-1.2 UREA NITROGEN 13 mg/dL 8-26 GLUCOSE 135 mg/dL H 70-100 SODIUM 135 mmol/L L 136-145 POTASSIUM 3.6 mmol/L 3.5-5.1 CHLORIDE 103 mmol/L 98-107 CO2 24 mmol/L 22-29 CALCIUM 9.2 mg/dL 8.4-10.2 MAGNESIUM 1.9 mg/dL 1.6-2.6 ANION GAP 8 mmol/L 5-15 .CREAT EGFR(CKD-EPI) >90 >60 Jun 24, 2024 09:50 AM [facility] CBC Specimen Type: BLOOD Comment: Specimen received in Lab at: 0948 Ordering Provider: JEVON ZAZUETA Report Released Date/Time: Jun 23, 2024 06:07 PM Reporting Lab: [facility] [address] Performing Lab: [facility] [address] WBC 15.5 H 4.0-11.0 RBC 4.93 4.60-6.20 HGB 15.2 g/dL 13.5-17.9 HCT 46.5 41.0-54.0 MCV 94.3 fL 80.0-100.0 MCH 30.8 pg 27.0-33.0 MCHC 32.7 g/dL 32.0-37.5 PLT 223 150-400 MPV 11.4 fL 9.1-13.0 RDW 13.9 11.5-14.5 Jun 23, 2024 07:52 AM [facility] COMPREHENSIVE METABOLIC PANEL+MG Specimen Type: PLASMA No comment entered. Ordering Provider: JEVON ZAZUETA Report Released Date/Time: Jun 22, 2024 05:51 PM Reporting Lab: [facility] [address] Performing Lab: [facility] [address] CREATININE 0.7 mg/dL 0.7-1.2 UREA NITROGEN 16 [...] >90 >60 Jun 23, 2024 07:52 AM [facility] CBC & DIFF Specimen Type: BLOOD Comment: Automated Differential Performed Ordering Provider: JEVON ZAZUETA Report Released Date/Time: Jun 22, 2024 05:51 PM Reporting Lab: [facility] [address] Performing Lab: [facility] [address] WBC 14.9 H 4.0-11.0 RBC 5.09 4.60-6.20 [...] 0.1 0.0-0.1 Jun 22, 2024 06:10 PM [facility] CBC Specimen Type: BLOOD No comment entered. Ordering Provider: JEVON ZAZUETA Report Released Date/Time: Jun 22, 2024 05:51 PM Reporting Lab: [facility] [address] Performing Lab: [facility] [address] WBC 16.9 H 4.0-11.0 RBC 5.28 4.60-6.20 HGB 16.9 g/dL 13.5-17.9 HCT 50.4 41.0-54.0 MCV 95.5 fL 80.0-100.0 MCH 32.0 pg 27.0-33.0 MCHC 33.5 g/dL 32.0-37.5 PLT 223 150-400 MPV 10.9 fL 9.1-13.0 RDW 14.0 11.5-14.5 Jun 22, 2024 06:10 PM [facility] COMPREHENSIVE METABOLIC PANEL+MG Specimen Type: PLASMA No comment entered. Ordering Provider: JEVON ZAZUETA Report Released Date/Time: Jun 22, 2024 05:51 PM Reporting Lab: [facility] [address] Performing Lab: [facility] [address] CREATININE 0.7 mg/dL 0.7-1.2 UREA NITROGEN 17 [...] >90 >60 Jun 21, 2024 06:48 PM [facility] URINALYSIS Specimen Type: URINE No comment entered. Ordering Provider: DELIA MARTINEZ Report Released Date/Time: Jun 21, 2024 05:45 PM Reporting Lab: [facility] [address] Performing Lab: [facility] [address] URINE COLOR YELLOW SPECIFIC GRAVITY 1.041 H [...] 500 NEGATIVE Jun 21, 2024 05:34 PM [facility] POC CREATININE Specimen Type: BLOOD No comment entered. Ordering Provider: DELIA MARTINEZ Report Released Date/Time: Jun 21, 2024 06:07 PM Reporting Lab: [facility] [address] Performing Lab: [facility] [address] POC CREATININE 1.1 mg/dL 0.6-1.3 Jun 21, 2024 05:30 PM [facility] POC ABG/LACTATE Specimen Type: VENOUS BLOOD No comment entered. Ordering Provider: DELIA MARTINEZ Report Released Date/Time: Jun 21, 2024 06:07 PM Reporting Lab: [facility] [address] Performing Lab: [facility] [address] POC PH 7.470 H 7.31-7.41 POC PCO2 31.2 mm[Hg] L 41.00-51 .0 0 POC PO2 46 mm[Hg] H 35.0-40.0 POC TCO2 24 mmol/L 24.0-29.0 POC HCO3 22.7 mmol/L L 23.0-28.0 POC BE ECT -1 mmol/L POC SO2 85 H 70-75 POC LACTATE 1.85 mmol/L 0.90-1.70 Jun 21, 2024 05:24 PM [facility] PROTHROMBIN TIME/INR Specimen Type: PLASMA No comment entered. Ordering Provider: DELIA MARTINEZ Report Released Date/Time: Jun 21, 2024 05:30 PM Reporting Lab: [facility] [address] Performing Lab: [facility] [address] .INR 1.2 H 0.8-1.1 .PT 13.9 s H 9.4-12.5 Jun 21, 2024 05:24 PM [facility] LIPASE Specimen Type: PLASMA No comment entered. Ordering Provider: DELIA MARTINEZ Report Released Date/Time: Jun 21, 2024 05:30 PM Reporting Lab: [facility] [id number] Performing Lab: [facility] [address] LIPASE 32 U/L <60 Jun 21, 2024 05:24 PM [facility] EXTRA GOLD GEL TUBE Specimen Type: SERUM No comment entered. Ordering Provider: DLEIA MARTINEZ Report Released Date/Time: Jun 21, 2024 05:41 PM Reporting Lab: [facility] [phone] Performing Lab: [facility] [phone] EXTRA GOLD GEL TUBE RECEIVED Jun 21, 2024 05:24 PM [facility] COMPREHENSIVE METABOLIC PANEL+MG Specimen Type: PLASMA No comment entered. Ordering Provider: DELIA MARTINEZ Report Released Date/Time: Jun 21, 2024 05:30 PM Reporting Lab: [facility] [address] Performing Lab: [facility] [id number] CREATININE 0.9 mg/dL 0.7-1.2 UREA NITROGEN 29 [...] mg/dL <0.5 Jun 21, 2024 05:24 PM [facility] CBC & DIFF Specimen Type: BLOOD Comment: Manual Differential Performed Ordering Provider: DELIA MARTINEZ Report Released Date/Time: Jun 21, 2024 05:30 PM Reporting Lab: [facility] [id number] Performing Lab: [facility] [id number] WBC 21.3 H 4.0-11.0 RBC 5.48 4.60-6.20 [...] 15, 2024 08:30 AM VA-TOBACCO FORMER USER [facility] Tobacco Use History This section includes a history of the smoking, or tobacco-related health factors, that were collected on or before the date of the Encounter. The data comes from the [place] facility where the Encounter took place. Date/Time Smoking Status/Tobacco Use Comment F acility May 15, 2024 08:30 AM VA-TOBACCO QUIT 15 YRS OR MORE [facility] May 06, 2023 11:30 AM VA-TOBACCO FORMER USER [facility] May 06, 2023 11:30 AM VA-TOBACCO QUIT 15 YRS OR MORE [facility] Jun 04, 2022 09:00 AM VA-TOBACCO FORMER USER [facility] Jun 04, 2022 09:00 AM VA-TOBACCO QUIT 15 YRS OR MORE [facility] Jul 10, 2021 08:00 AM VA-TOBACCO FORMER USER [facility] Jul 10, 2021 08:00 AM VA-TOBACCO QUIT 5 TO < 15 YRS [facility] May 23, 2020 08:30 AM VA-TOBACCO FORMER USER [facility] May 23, 2020 08:30 AM VA-TOBACCO QUIT 5 TO < 15 YRS [facility] Mar 20, 2019 04:03 PM VA-TOBACCO FORMER USER [facility] Mar 20, 2019 04:03 PM VA-TOBACCO QUIT 5 TO < 15 YRS [facility] Mar 21, 2018 08:13 AM FORMER TOBACCO USER 7Y OR GREATE R [facility] Feb 24, 2017 09:24 AM FORMER TOBACCO USER 7Y OR GREATE R [facility] January 07, 2016 08:01 AM FORMER TOBACCO USE >1Y <7Y [facility] Feb 03, 2015 07:58 AM FORMER TOBACCO USE <1Y [facility] Feb 26, 2014 08:41 AM CURRENT TOBACCO USER [facility] May 13, 2011 01:45 PM CURRENT TOBACCO USER [facility] Advance Directives: All historical and current [...] VIEWS PA A ND LAT: FLACA WEAVER [id number] -1950 M Exm Date: JUL 08, 2024@10:09 Req Phys: KATELYNN PERSON Pat Loc: [facility]/07-08-2024@11:49 Img Loc: MAIN X-RAY Service: [place] [address] (Case [id number] COMPLETE) CHEST 2 VIEWS PA AND LAT (RAD Detailed) CPT:26069 Reason for Study: Uptrending WBC, POD 5 Clinical History: [place] IS NOT under investigation for COVID-19 or is COVID-19 negative POD 5, work up for uptrending wbc Responsible provider name and phone number to notify for critical findings if other than user placing the order and pager listed below: User placing orders pager: Katelynn Person LAST CREATININE 0.9 (07/07/24) Report Status: Verified Date Reported: JUL 08, 2024 Date Verified: JUL 08, 2024 Land [employer] E-Sig: Report: CHEST 2 VIEWS PA AND LAT HISTORY: Uptrending WBC, POD 5 COMPARISON: CT chest 11/12/2022 TECHNIQUE: Frontal and lateral views of the chest, submitted to the [place] [facility] ([facility]) for interpretation. FINDINGS: Lungs: Clear. No focal consolidation. No pulmonary edema. Pleura: No pleural effusion or pneumothorax. Mediastinum: Normal size and contour. Bones: Unremarkable. Impression: No acute cardiopulmonary disease. READING PHYSICIAN: Sarbjit Vaughn M.D. -[id number] 07/08/2024 12:46 EST [facility] National Teleradiology Program [phone] (For Medical Practitioner Use Only) Attention Patients / Veterans: If you have questions or concerns about these test results, please contact your ordering provider or primary care team. Primary Interpreting Staff: RADIOLOGY,OUTSIDE SERVICE, Staff Physician / RADIOLOGY,OUTSIDE SERVICE [facility] Jul 08, 2024 10:[address] (AP) ABDOMEN/PE LVIS W CONTRAST: FLACA WEAVER [id number] -1950 M Exm Date: JUL 08, 2024@10:00 Req Phys: KATELYNN PERSON Loc: 2KG/07-08-2024@12:07 Img Loc: CT IMAGING Service: [place] [address] (Case [id number] COMPLETE) CT (AP) ABDOMEN/PELVIS W CONTRAST(CT Detailed) CPT:37564 Contrast Media : Non-ionic Iodinated Reason for [...] PLASMA .CREAT EGFR(CKD-E >90 Ref: >=60 Allergies: ([facility] only) TERAZOSIN (Mar 13, 2015) Report Status: Verified Date Reported: JUL 08, 2024 Date Verified: JUL 08, 2024 Land Inspector E-Sig: Report: CT (AP) ABDOMEN/PELVIS W CONTRAST HISTORY: POD 5, Uptrending WBC - Concern for Abscess/other infection COMPARISON: June 21, 2024 TECHNIQUE: CT abdomen and pelvis was performed after intravenous contrast. Axial, sagittal and coronal reformatted images. The study was performed at the local [place] facility and images were sent to the [place] Teleradiology Program (NTP) for interpretation. Number [...] as noted above READING PHYSICIAN: Celestino Blanc -[phone] 07/08/2024 13:04 EST [facility] National [place] Mediaradiology Program [phone] (For Medical Practitioner Use Only) Attention Patients / Veterans: If you have questions or concerns about these test results, please contact your ordering provider or primary care team. Primary Interpreting Staff: RADIOLOGY,OUTSIDE SERVICE, Staff Physician / RADIOLOGY,OUTSIDE SERVICE [facility] Jun 22, 2024 11:49 AM ABSCESS DRAIN PLAC EMENT PERITONEAL (P): FLACA WEAVER [id number] -1950 M Exm Date: JUN 22, 2024@11:49 Req Phys: ANGELA HOLDEN [facility] Loc: [facility]/06-22-2024@17:14 Img Loc: INTERVENTIONAL RADIOLOGY Service: [place] [address] (Case [id number] COMPLETE) IR PERITONEAL/RETROPERITONEAL PER(ANI Detailed) CPT:57607 Reason for Study: diverticulitis with abscess (Case 3570 COMPLETE) IR MOD SEDATION 10-22 MIN (ANI Detailed) CPT:75148 Clinical History: [place] IS NOT under investigation for COVID-19 or is COVID-19 negative 73 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 please place abscess drain. Contact number for responsible provider who can be reached for any questions or notifications of critical findings: [phone] n/a LAST CREATININE 0.9 (06/21/24) Report Status: Verified Date Reported: JUN 22, 2024 Date Verified: JUN 22, 2024 Land Inspector E-Sig:/ES/LISA PENDLETON MD Report: PROCEDURES: Placement [...] obtained. A pre-procedural Time-Out was performed per [facility] policy. The patient was placed in the supine position on the CT table. Preprocedural scan performed. The suprapubic region/lower abdominal wall was sterilely prepped and draped in the usual fashion.1% lidocaine without epinephrine was used for local anesthesia. Using real-time CT fluoroscopy, a 5 Swiss Yueh centesis catheter was advanced into the collection in the left pelvis. A wire was coiled in the collection. The tract into the collection was dilated to accommodate the 12 Swiss locking pigtail drainage catheter. There was return [...] Primary Interpreting Staff: LISA PENDLETON MD, RADIOLOGIST (Land Inspector) /JRT LISA PENDLETON [facility] Jun 22, 2024 11:[address] NEEDLE PLACEMEN T (P): FLACA WEAVER [id number] -1950 M Exm Date: JUN 22, 2024@11:48 Req Phys: ANGELA HOLDEN [facility] Loc: [facility]/06-22-2024@17:14 Img Loc: CT IMAGING Service: [place] [address] (Case [id number] COMPLETE) CT SCAN FOR NEEDLE PLACEMENT (CT Detailed) CPT:67310 Reason for Study: l pelvic abscess drain Clinical History: Report Status: Verified Date Reported: JUN 22, 2024 Date Verified: JUN 22, 2024 Land Inspector E-Sig:/ES/LISA PENDLETON MD Report: PROCEDURES: Placement [...] obtained. A pre-procedural Time-Out was performed per [facility] policy. The patient was placed in the supine position on the CT table. Preprocedural scan performed. The suprapubic region/lower abdominal wall was sterilely prepped and draped in the usual fashion.1% lidocaine without epinephrine was used for local anesthesia. Using real-time CT fluoroscopy, a 5 Swiss Bashaesis catheter was advanced into the collection in the left pelvis. A wire was coiled in the collection. The tract into the collection was dilated to accommodate the 12 Swiss locking pigtail drainage catheter. There was return [...] Primary Interpreting Staff: LISA PENDLETON MD, RADIOLOGIST (Land Inspector) /JRT LISA PENDLETON [facility] Jun 21, 2024 06:[address] (AP) ABDOMEN/PE LVIS (P): MEGFLACA YAMIL [id number] -1950 Ex Date: JUN 21, 2024@18:09 Req Phys: DELIA MARTINEZ Loc: [facility] EMERGENCY DEPT WALK-IN (Re Img Loc: CT IMAGING Service: [place] [address] (Case [id number] COMPLETE) CT (AP) ABDOMEN/PELVIS W CONTRAST(CT Detailed) CPT:78195 Contrast Media : Non-ionic Iodinated Reason for [...] PLASMA .CREAT EGFR(CKD-E >90 Ref: >=60 Allergies: ([facility] only) TERAZOSIN (Mar 13, 2015) Defer to [...] 21, 2024 Date Verified: JUN 21, 2024 Land Inspector E-Sig:/ES/CARLOS A CUNNINGHAM DO Report: EXAMINATION: CT [...] Interpreting Staff: CARLOS A CUNNINGHAM DO, RADIOLOGIST (Land Inspector) /CARLOS A ROWELL [facility] Pathology Reports: +/- 30 days of [...] COSIGNER: URGENCY: STATUS: COMPLETED $APHDR Reporting Lab: [facility] [CLIA# [id number]] [place] [address] - - - - - - - [...] - PATHOLOGY REPORT Accession No. [id number] - - - - - - - [...] - - - POSTOPERATIVE DIAGNOSIS: Diverticulitis Surgeon/physician: WENCESALO ARREDONDO MD Attending Surgeon: Wenceslao Arredondo MD =-=-=-=-=-=-=-=-=-=-=-=-=-=- =-=-=-=-=-=-=-=-=-=-=-=-=-=- =-=-=-=-=-=-=-=-=-=-=-= - - - - - - - - - - - - - - - - - - - - - - - - - - - - - - - - - - - - - - - - PATHOLOGY REPORT Accession No. [id number] - - - - - - - [...] Second circumferential surgical margin, en face; E-F: Background Investigator diverticula; G: Background Investigator section of mesentery; H: Random customer field representative section of additional adipose tissue fragment. [...] Performing Laboratory: Surgical Pathology Report Performed By: [facility] [CLIA# [id number]] [place] [address] $FTR - - - - - - [...] - - FLACA WEAVER STANDARD FORM 515 ID:[id number] SEX:M :1950 AGE: 73 LOC:97247 ADM:Jun DX:DIVERTICULITIS PCP: Jatinder Cabrera /alexi/ EDUARDO PALOMARES MD STAFF PATHOLOGIST Signed: 07/06/2024 10:40 EDUARDO PALOMARES [facility] Jun 22, 2024 01:15 PM LR MICROBIOLOGY RE PORT: Reporting Lab: [facility] [CLIA# [id number]] [address] [place] [address] Accession [UID]: [id number] [[id number]] Received: Jun 22, 2024@13:38 Collection sample: FLUID Collection date: Jun 22, 2024 13:15 Provider: ANGELA HOLDEN Comment on specimen: LLQ ABSCESS, RECEIVED IN ANAEROBIC TRANSPORT VIAL Test(s) ordered: GRAM STAIN.................... completed: Jun 22, 2024 15:03 CULTURE & SUSCEPTIBILITY...... completed: Jun 25, 2024 * BACTERIOLOGY FINAL REPORT => Jun 25, 2024 10:56 TECH CODE: [id number] GRAM STAIN: DIRECT SMEAR of specimen before [...] -=--=--=--=--=--=--=-- Performing Laboratory: Bacteriology Report Performed By: [facility] [CLIA# [id number]] [place] [address] [facility] Jun 22, 2024 01:15 PM LR MICROBIOLOGY RE PORT: Reporting Lab: [facility] [CLIA# [id number]] [place] [address] Accession [UID]: [id number] [[id number]] Received: Jun 22, 2024@13:38 Collection sample: FLUID Collection date: Jun 22, 2024 13:15 Provider: ANGELA HOLDEN Comment on specimen: LLQ ABSCESS, RECEIVED IN ANAEROBIC TRANSPORT VIAL Test(s) ordered: ANAEROBIC CULTURE............. completed: Jun 28, 2024 * BACTERIOLOGY FINAL REPORT => Jun 28, 2024 10:08 [facility] CODE: [id number] CULTURE RESULTS: HEAVY GROWTH MIXED ANAEROBES Comment: including the followin+ Bacteroides fragilis 4+ Bacteroides vulgatus 4+ Clostridium innocuum Beta-lactamase negative 4+ Bacteroides caccae 4+ Parvimonas micra 4+ Bacteroides uniformis 4+ Gemella morbillorum 4+ anaerobic small, Gram Positive Rods 4+ Bacteroides thetaiotaomicron Standard workup is now complete. Bacteriology Remark(s): THIS REPORT IS FINAL =--=--=--=--=--=--=--=--=--= --=--=--=--=--=--=--=--=--=- -=--=--=--=--=--=--=-- Performing Laboratory: Bacteriology Report Performed By: [facility] [CLIA# [id number]] [place] [address] [facility] Jun 21, 2024 06:12 PM LR MICROBIOLOGY RE PORT: Reporting Lab: [facility] [IA# [id number]] [place] [address] Accession [UID]: [id number] [[id number]] Received: Jun 21, 2024@18:12 Collection sample: BLOOD [...] -=--=--=--=--=--=--=-- Performing Laboratory: Bacteriology Report Performed By: [facility] [IA# [id number]] [place] [address] [facility] Jun 21, 2024 06:11 PM LR MICROBIOLOGY RE PORT: Reporting Lab: [facility] [IA# [id number]] [place] [address] Accession [UID]: [id number] [[id number]] Received: Jun 21, 2024@18:11 Collection sample: BLOOD [...] -=--=--=--=--=--=--=-- Performing Laboratory: Bacteriology Report Performed By: [facility] [CLIA# [id number]] [place] [address] [facility]
--- OUTSIDE RECORDS SUMMARY | 2024-07-16 07:22 | XMS_ITS | Encounter Summary ---
Author Name [facility] [place] [facility] [place] Address [address] [place] [address] Care Team Providers Care Machine Assistant Name Role Phone JATINDER CABRERA Primary [...] PART A Sep 29, 2016 PART A [id number] [phone] JUDY WEAVER PATIENT Selected Encounter This section includes the information on record at [place] for the Encounter. Date/Time Encounter Type Encounter Description Reason Pro vider Source Jul 10, 2024 11:18 AM Inpatient Visit CLINICAL PHARMACY [facility] Encounter Template Text not used by [place] Plan of Treatment: Future Appointments (+ 6 months) and Future Tests (+/- 45 days) The Plan of Treatment section includes future care activities for the patient from all [place] treatmentfacilities. This section includes future appointments and future orders which are active, pending or scheduled. Future Appointments This section includes appointments that were scheduled to occur 6 months from the date of the Encounter, up to a maximum of 20 appointments. The data comes from all [place] treatment facilities. Appointment Date/Time Appointment Type Appointme nt Facility Name Jul 13, 2024 08:15 AM [facility] Active, Pending, and Scheduled Orders This section includes a listing of several types of active, pending, and scheduled orders, including clinic medications orders, diagnostic test orders, procedure orders and consult orders; where the start date of the order is 45 days before the date of the Encounter or 45 days after the date of theEncounter. The data comes from all [place] treatment facilities. Test Date/Time Test Type Test [...] Order TYPE & SCREEN - LAB BLOOD [facility] Jul 03, 2024 12:00 AM Laboratory - Blood Bank Order TYPE & SCREEN - LAB BLOOD [facility] Jul 16, 2024 12:00 AM Laboratory - [...] Jul 09, 2024 12:23 PM Reporting Lab: [facility] [address] Performing Lab: [facility] [address] PHOSPHORUS 3.0 mg/dL 2.3-4.3 Jul 10, 2024 07:16 AM [facility] BASIC METABOLIC PANEL+MG Specimen Type: PLASMA No comment entered. Ordering Provider: JUANCARLOS ECHOLS S Report Released Date/Time: Jul 09, 2024 12:23 PM Reporting Lab: [facility] [address] Performing Lab: [facility] [address] CREATININE 0.7 mg/dL 0.7-1.2 UREA NITROGEN 27 [...] Jul 09, 2024 12:23 PM Reporting Lab: [facility] [address] Performing Lab: [facility] [address] WBC 18.8 H 4.0-11.0 RBC 5.08 4.60-6.20 [...] Jul 08, 2024 06:18 PM Reporting Lab: [facility] [address] Performing Lab: [facility] [address] WBC 15.3 H 4.0-11.0 RBC 4.91 4.60-6.20 [...] Jul 08, 2024 08:41 AM Reporting Lab: [facility] [address] Performing Lab: [facility] [address] URINE COLOR YELLOW SPECIFIC GRAVITY >1.050 H [...] Jul 07, 2024 04:49 PM Reporting Lab: [facility] [address] Performing Lab: [facility] [address] WBC 17.5 H 4.0-11.0 RBC 4.88 4.60-6.20 [...] Jul 07, 2024 04:49 PM Reporting Lab: [facility] [address] Performing Lab: [facility] [address] PHOSPHORUS 2.6 mg/dL 2.3-4.3 Jul 08, 2024 09:54 AM [facility] BASIC METABOLIC PANEL+MG Specimen Type: PLASMA Comment: Specimen received in Lab at: [id number] Ordering Provider: JUANCARLOS ECHOLS Report Released Date/Time: Jul 07, 2024 04:49 PM Reporting Lab: [facility] [address] Performing Lab: [facility] [address] CREATININE 0.9 mg/dL 0.7-1.2 UREA NITROGEN 26 [...] Jul 07, 2024 12:26 PM Reporting Lab: [facility] [address] Performing Lab: [facility] [address] C DIFF TOX B GENE PCR NEGATIVE Negative Jul 07, 2024 07:41 AM [facility] PHOSPHORUS Specimen Type: PLASMA No comment entered. Ordering Provider: JEVON ZAZUETA Report Released Date/Time: Jul 06, 2024 03:44 PM Reporting Lab: [facility] [address] Performing Lab: [facility] [address] PHOSPHORUS 3.1 mg/dL 2.3-4.3 Jul 07, 2024 07:41 AM [facility] BASIC METABOLIC PANEL+MG Specimen Type: PLASMA No comment entered. Ordering Provider: JEVON ZAZUETA Report Released Date/Time: Jul 06, 2024 03:44 PM Reporting Lab: [facility] [address] Performing Lab: [facility] [address] CREATININE 0.9 mg/dL 0.7-1.2 UREA NITROGEN 20 [...] Jul 06, 2024 03:44 PM Reporting Lab: [facility] [address] Performing Lab: [facility] [address] WBC 21.2 H 4.0-11.0 RBC 5.09 4.60-6.20 [...] Jul 05, 2024 01:22 PM Reporting Lab: [facility] [address] Performing Lab: [facility] [address] WBC 18.0 H 4.0-11.0 RBC 4.83 4.60-6.20 [...] Jul 05, 2024 01:22 PM Reporting Lab: [facility] [address] Performing Lab: [facility] [address] PHOSPHORUS 3.6 mg/dL 2.3-4.3 Jul 06, 2024 07:21 AM [facility] BASIC METABOLIC PANEL+MG Specimen Type: PLASMA No comment entered. Ordering Provider: EJVON ZAZUETA Report Released Date/Time: Jul 05, 2024 01:22 PM Reporting Lab: [facility] [address] Performing Lab: [facility] [address] CREATININE 0.7 mg/dL 0.7-1.2 UREA NITROGEN 12 [...] Jul 04, 2024 09:39 AM Reporting Lab: [facility] [address] Performing Lab: [facility] [address] MAGNESIUM 2.0 mg/dL 1.6-2.6 Jul 05, 2024 07:17 AM [facility] PHOSPHORUS Specimen Type: PLASMA No comment entered. Ordering Provider: JUANCARLOS ECHOLS S Report Released Date/Time: Jul 04, 2024 09:39 AM Reporting Lab: [facility] [address] Performing Lab: [facility] [address] PHOSPHORUS 2.0 mg/dL L 2.3-4.3 Jul 05, 2024 07:17 AM [facility] BASIC METABOLIC PANEL+MG Specimen Type: PLASMA No comment entered. Ordering Provider: JUANCARLOS ECHOLS S Report Released Date/Time: Jul 04, 2024 09:39 AM Reporting Lab: [facility] [address] Performing Lab: [facility] [address] CREATININE 0.7 mg/dL 0.7-1.2 UREA NITROGEN 12 [...] Jul 04, 2024 09:39 AM Reporting Lab: [facility] [address] Performing Lab: [facility] [address] WBC 18.3 H 4.0-11.0 RBC 4.49 L [...] Jul 03, 2024 06:31 PM Reporting Lab: [facility] [address] Performing Lab: [facility] [address] CREATININE 0.7 mg/dL 0.7-1.2 UREA NITROGEN 16 mg/dL 8-26 GLUCOSE 129 mg/dL H 70-100 SODIUM 137 mmol/L 136-145 POTASSIUM 3.7 mmol/L 3.5-5.1 CHLORIDE 107 mmol/L 98-107 CO2 22 mmol/L 22-29 CALCIUM 9.0 mg/dL 8.4-10.2 MAGNESIUM 1.9 mg/dL 1.6-2.6 ANION GAP 8 mmol/L 5-15 .CREAT EGFR(CKD-EPI) >90 >60 Jul 04, 2024 07:17 AM [facility] PHOSPHORUS Specimen Type: PLASMA No comment entered. Ordering Provider: GABINO CAMERON Report Released Date/Time: Jul 03, 2024 06:31 PM Reporting Lab: [facility] [address] Performing Lab: [facility] [address] PHOSPHORUS 2.8 mg/dL 2.3-4.3 Jul 04, 2024 07:16 AM [facility] CBC Specimen Type: BLOOD No comment entered. Ordering Provider: GABINO CAMERON Report Released Date/Time: Jul 03, 2024 06:31 PM Reporting Lab: [facility] [address] Performing Lab: [facility] [address] WBC 20.6 H 4.0-11.0 RBC 4.63 4.60-6.20 [...] Jul 03, 2024 06:31 PM Reporting Lab: [facility] [address] Performing Lab: [facility] [address] WBC 20.6 H 4.0-11.0 RBC 4.63 4.60-6.20 [...] Jul 03, 2024 06:31 PM Reporting Lab: [facility] [address] Performing Lab: [facility] [address] BNP 292 pg/mL H <99 Jul 03, 2024 10:32 PM [facility] FINGERSTICK GLUCOSE Specimen Type: BLOOD Comment: Save Result Nurse Notified Ordering Provider: KATELYNN PERSON Report Released Date/Time: Jul 03, 2024 10:50 PM Reporting Lab: [facility] [address] Performing Lab: [facility] [address] FINGERSTICK GLUCOSE 126 mg/dL H 70-100 Jul 03, 2024 05:33 PM [facility] FINGERSTICK GLUCOSE Specimen Type: BLOOD Comment: Save Result Nurse Notified Ordering Provider: KATELYNN PERSON Report Released Date/Time: Jul 03, 2024 05:46 PM Reporting Lab: [facility] [address] Performing Lab: [facility] [address] FINGERSTICK GLUCOSE 141 mg/dL H 70-100 Jul 03, 2024 02:31 PM [facility] POC ABG/ELECTROLYTES Specimen Type: ARTERIAL BLOOD Comment: FIO2 = 97% Patient Temp: 36.0 C Sample Type = ARTERIAL Ordering Provider: MAZIN ARREDONDO Report Released Date/Time: Jul 03, 2024 01:48 PM Reporting Lab: [facility] [address] Performing Lab: [facility] [address] POC PH 7.387 7.35-7.45 POC PCO2 34.4 [...] Jul 03, 2024 01:48 PM Reporting Lab: [facility] [address] Performing Lab: [facility] [address] POC PH 7.280 L 7.35-7.45 POC PCO2 [...] Jun 12, 2024 04:01 PM Reporting Lab: [facility] [address] Performing Lab: [facility] [address] URINE COLOR YELLOW SPECIFIC GRAVITY 1.031 1.003-1.03 [...] Jun 12, 2024 03:59 PM Reporting Lab: [facility] [address] Performing Lab: [facility] [address] WBC 15.8 H 4.0-11.0 RBC 5.11 4.60-6.20 [...] Jun 23, 2024 06:07 PM Reporting Lab: [facility] [address] Performing Lab: [facility] [address] CREATININE 0.8 mg/dL 0.7-1.2 UREA NITROGEN 13 [...] Jun 23, 2024 06:07 PM Reporting Lab: [facility] [address] Performing Lab: [facility] [address] WBC 15.5 H 4.0-11.0 RBC 4.93 4.60-6.20 [...] Jun 22, 2024 05:51 PM Reporting Lab: [facility] [address] Performing Lab: [facility] [address] CREATININE 0.7 mg/dL 0.7-1.2 UREA NITROGEN 16 [...] Jun 22, 2024 05:51 PM Reporting Lab: [facility] [address] Performing Lab: [facility] [address] WBC 14.9 H 4.0-11.0 RBC 5.09 4.60-6.20 [...] Jun 22, 2024 05:51 PM Reporting Lab: [facility] [address] Performing Lab: [facility] [address] WBC 16.9 H 4.0-11.0 RBC 5.28 4.60-6.20 [...] Jun 22, 2024 05:51 PM Reporting Lab: [facility] [address] Performing Lab: [facility] [address] CREATININE 0.7 mg/dL 0.7-1.2 UREA NITROGEN 17 [...] Jun 21, 2024 05:45 PM Reporting Lab: [facility] [address] Performing Lab: [facility] [address] URINE COLOR YELLOW SPECIFIC GRAVITY 1.041 H [...] Jun 21, 2024 06:07 PM Reporting Lab: [facility] [address] Performing Lab: [facility] [address] POC CREATININE 1.1 mg/dL 0.6-1.3 Jun 21, 2024 05:30 PM [facility] POC ABG/LACTATE Specimen Type: VENOUS BLOOD No comment entered. Ordering Provider: DELIA MARTINEZ Report Released Date/Time: Jun 21, 2024 06:07 PM Reporting Lab: [facility] [address] Performing Lab: [facility] [address] POC PH 7.470 H 7.31-7.41 POC PCO2 [...] Jun 21, 2024 05:30 PM Reporting Lab: [facility] [address] Performing Lab: [facility] [address] .INR 1.2 H 0.8-1.1 .PT 13.9 s H 9.4-12.5 Jun 21, 2024 05:24 PM [facility] LIPASE Specimen Type: PLASMA No comment entered. Ordering Provider: DELIA MARTINEZ Report Released Date/Time: Jun 21, 2024 05:30 PM Reporting Lab: [facility] [address] Performing Lab: [facility] [address] LIPASE 32 U/L <60 Jun 21, 2024 05:24 PM [facility] EXTRA GOLD GEL TUBE Specimen Type: SERUM No comment entered. Ordering Provider: DELIA MARTINEZ Report Released Date/Time: Jun 21, 2024 05:41 PM Reporting Lab: [facility] [address] Performing Lab: [facility] [address] EXTRA GOLD GEL TUBE RECEIVED Jun 21, 2024 05:24 PM [facility] COMPREHENSIVE METABOLIC PANEL+MG Specimen Type: PLASMA No comment entered. Ordering Provider: DELIA MARTINEZ Report Released Date/Time: Jun 21, 2024 05:30 PM Reporting Lab: [facility] [address] Performing Lab: [facility] [address] CREATININE 0.9 mg/dL 0.7-1.2 UREA NITROGEN 29 [...] Jun 21, 2024 05:30 PM Reporting Lab: [facility] [address] Performing Lab: [facility] [address] WBC 21.3 H 4.0-11.0 RBC 5.48 4.60-6.20 [...] this document. The data comes from all [place] facilities. Date Advance Directives Provider Source Mar 23, 2016 CLINICAL WARNING [facility] Radiology Reports: +/- 30 [...] VIEWS PA A ND LAT: FLACA WEAVER [id number] -1950 M Exm Date: JUL 08, 2024@10:09 Req Phys: KATELYNN PERSON Pat Loc: [facility]/07-08-2024@11:49 Img Loc: MAIN X-RAY Service: [place] [place] [address] (Case 24 COMPLETE) CHEST 2 VIEWS PA AND LAT (RAD Detailed) CPT:46347 Reason for Study: Uptrending WBC, POD 5 Clinical History: Joffre IS NOT under investigation for COVID-19 or is COVID-19 negative POD 5, work up for uptrending wbc Responsible provider name and phone number to notify for critical findings if other than user placing the order and pager listed below: User placing orders pager: Katelynn Person LAST CREATININE 0.9 (07/07/24) Report Status: Verified Date Reported: JUL 08, 2024 Date Verified: JUL 08, 2024 Bottle Carrier E-Sig: Report: CHEST 2 VIEWS PA AND LAT HISTORY: Uptrending WBC, POD 5 COMPARISON: CT chest 11/12/2022 TECHNIQUE: Frontal and lateral views of the chest, submitted to the [place] National Teleradiology Program ([place] for interpretation. FINDINGS: Lungs: Clear. No focal consolidation. No pulmonary edema. Pleura: No pleural effusion or pneumothorax. Mediastinum: Normal size and contour. Bones: Unremarkable. Impression: No acute cardiopulmonary disease. READING PHYSICIAN: Sarbjit Vaughn M.D. -[phone] 07/08/2024 12:46 EST [facility] National Teleradiology Program [phone] (For Medical Practitioner Use Only) Attention Patients / Veterans: If you have questions or concerns about these test results, please contact your ordering provider or primary care team. Primary Interpreting Staff: RADIOLOGY,OUTSIDE SERVICE, Staff Physician / RADIOLOGY,OUTSIDE SERVICE [facility] Jul 08, 2024 10:[address] (AP) ABDOMEN/PE LVIS W CONTRAST: FLACA WEAVER [id number] -1950 M Exm Date: JUL 08, 2024@10:00 Req Phys: KATELYNN PERSON Loc: 2KG/07-08-2024@12:07 Img Loc: CT IMAGING Service: [place] [address] (Case 22 COMPLETE) CT (AP) ABDOMEN/PELVIS W CONTRAST(CT Detailed) CPT:45785 Contrast Media : Non-ionic Iodinated Reason for [...] PLASMA .CREAT EGFR(CKD-E >90 Ref: >=60 Allergies: ([place] only) TERAZOSIN (Mar 13, 2015) Report Status: Verified Date Reported: JUL 08, 2024 Date Verified: JUL 08, 2024 Bottle Carrier E-Sig: Report: CT (AP) ABDOMEN/PELVIS W CONTRAST HISTORY: POD 5, Uptrending WBC - Concern for Abscess/other infection COMPARISON: June 21, 2024 TECHNIQUE: CT abdomen and pelvis was performed after intravenous contrast. Axial, sagittal and coronal reformatted images. The study was performed at the local [place] facility and images were sent to the [place] National Teleradiology Program (NTP) for interpretation. Number [...] as noted above READING PHYSICIAN: Celestino Blanc -[phone] 07/08/2024 13:04 EST [facility] National Teleradiology Program [phone] (For Medical Practitioner Use Only) Attention Patients / Veterans: If you have questions or concerns about these test results, please contact your ordering provider or primary care team. Primary Interpreting Staff: RADIOLOGY,OUTSIDE SERVICE, Staff Physician / RADIOLOGY,OUTSIDE SERVICE [facility] Jun 22, 2024 11:49 AM ABSCESS DRAIN PLAC EMENT PERITONEAL (P): FLACA WEAVER [id number] -1950 M Exm Date: JUN 22, 2024@11:49 Req Phys: ANGELA HOLDEN Loc: [facility]/06-22-2024@17:14 Img Loc: INTERVENTIONAL RADIOLOGY Service: [place] [address] (Case [id number] COMPLETE) IR PERITONEAL/RETROPERITONEAL PER(ANI Detailed) CPT:58063 Reason for Study: diverticulitis with abscess (Case 3570 COMPLETE) IR MOD SEDATION 10-22 MIN (ANI Detailed) CPT:62084 Clinical History: Joffre IS NOT under investigation for COVID-19 or is COVID-19 negative 73 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 please place abscess drain. Contact number for responsible provider who can be reached for any questions or notifications of critical findings: [phone] n/a LAST CREATININE 0.9 (06/21/24) Report Status: Verified Date Reported: JUN 22, 2024 Date Verified: JUN 22, 2024 Bottle Carrier E-Sig:/ES/LISA PENDLETON MD Report: PROCEDURES: Placement of [...] obtained. A pre-procedural Time-Out was performed per [facility] policy. The patient was placed in the supine position on the CT table. Preprocedural scan performed. The suprapubic region/lower abdominal wall was sterilely prepped and draped in the usual fashion.1% lidocaine without epinephrine was used for local anesthesia. Using real-time CT fluoroscopy, a 5 Trinidadian Be[employer] centesis catheter was advanced into the collection in the left pelvis. A wire was coiled in the collection. The tract into the collection was dilated to accommodate the 12 Trinidadian locking pigtail drainage catheter. There was return [...] Primary Interpreting Staff: LISA PENDLETON MD, RADIOLOGIST (Bottle Carrier) /JRT LISA PENDLETON [facility] Jun 22, 2024 11:[address] NEEDLE PLACEMEN T (P): FLACA WEAVER [id number] -1950 M Exm Date: JUN 22, 2024@11:48 Req Phys: ANGELA HOLDEN [facility] Loc: [facility]/06-22-2024@17:14 Img Loc: CT IMAGING Service: [place] [address] (Case [id number] COMPLETE) CT SCAN FOR NEEDLE PLACEMENT (CT Detailed) CPT:23156 Reason for Study: l pelvic abscess drain Clinical History: Report Status: Verified Date Reported: JUN 22, 2024 Date Verified: JUN 22, 2024 Bottle Carrier E-Sig:/ES/LISA PENDLETON MD Report: PROCEDURES: Placement of [...] obtained. A pre-procedural Time-Out was performed per [facility] policy. The patient was placed in the supine position on the CT table. Preprocedural scan performed. The suprapubic region/lower abdominal wall was sterilely prepped and draped in the usual fashion.1% lidocaine without epinephrine was used for local anesthesia. Using real-time CT fluoroscopy, a 5 Trinidadian [employer]City[employer]esis catheter was advanced into the collection in the left pelvis. A wire was coiled in the collection. The tract into the collection was dilated to accommodate the 12 Trin[place] locking pigtail drainage catheter. There was return [...] Primary Interpreting Staff: LISA PENDLETON MD, RADIOLOGIST (Bottle Carrier) /JRT LISA PENDLETON [facility] Jun 21, 2024 06:[address] (AP) ABDOMEN/PE LVIS (P): MEGFLACA YAMIL [id number] -1950 M Ex Date: JUN 21, 2024@18:09 Req Phys: DELIA MARTINEZ Loc: [facility]Y [facility]PT WALK-IN (Re Img Loc: CT IMAGING Service: [place] [address] (Case [id number] COMPLETE) CT (AP) ABDOMEN/PELVIS W CONTRAST(CT Detailed) CPT:61897 Contrast Media : Non-ionic Iodinated Reason for [...] PLASMA .CREAT EGFR(CKD-E >90 Ref: >=60 Allergies: ([facility]) TERAZOSIN (Mar 13, 2015) Defer to radiologist [...] 21, 2024 Date Verified: JUN 21, 2024 Bottle Carrier E-Sig:/ALEXI/CARLOS A CUNNINGHAM DO Report: EXAMINATION: CT [...] Interpreting Staff: CARLOS A CUNNINGHAM DO, RADIOLOGIST (Bottle Carrier) /CARLOS A ROWELL [facility] Pathology Reports: [...] COMPLETED $APHDR Reporting Lab: [facility] [CLIA# [id number]] [place] [address] - - - - - - - [...] - PATHOLOGY REPORT Accession No. [id number] - - - - - - - [...] - PATHOLOGY REPORT Accession No. [id number] - - - - - - - [...] Second circumferential surgical margin, en face; E-F: Assisted Living Coordinator diverticula; G: Assisted Living Coordinator section of mesentery; H: Random lead customer service representative section of additional adipose tissue fragment. [...] Pathology Report Performed By: [facility] [CLIA# [id number]] [place] [address] $FTR - - - - - - [...] - - FLACA WEAVER STANDARD FORM 515 ID:[id number] SEX:M :1950 AGE: 73 LOC:[id number] ADM:Jun DX:DIVERTICULITIS PCP: Jatinder Cabrera /alexi/ EDUARDO PALOMARES MD STAFF PATHOLOGIST Signed: 07/06/2024 10:40 EDUARDO PALOMARES [facility] Jun 22, 2024 01:15 PM LR MICROBIOLOGY RE PORT: Reporting Lab: [facility] [CLIA# [id number]] [place] [address] Accession [UID]: [id number] [[id number]] Received: Jun 22, 2024@13:38 Collection sample: FLUID Collection date: Jun 22, 2024 13:15 Provider: ANGELA HOLDEN Comment on specimen: LLQ ABSCESS, RECEIVED IN ANAEROBIC TRANSPORT VIAL Test(s) ordered: GRAM STAIN.................... completed: Jun 22, 2024 15:03 CULTURE & SUSCEPTIBILITY...... completed: Jun 25, 2024 * BACTERIOLOGY FINAL REPORT => Jun 25, 2024 10:56 TECH CODE: [id number] GRAM STAIN: DIRECT SMEAR of specimen before [...] Bacteriology Report Performed By: [facility] [CLIA# [id number]] [place] [address] [facility] Jun 22, 2024 01:15 PM LR MICROBIOLOGY RE PORT: Reporting Lab: [facility] [CLIA# [id number]] [place] [address] Accession [UID]: [id number] [[id number]] Received: Jun 22, 2024@13:38 Collection sample: FLUID Collection date: Jun 22, 2024 13:15 Provider: ANGELA HOLDEN Comment on specimen: LLQ ABSCESS, RECEIVED IN ANAEROBIC TRANSPORT VIAL Test(s) ordered: ANAEROBIC CULTURE............. completed: Jun 28, 2024 * BACTERIOLOGY FINAL REPORT => Jun 28, 2024 10:08 [facility] CODE: [id number] CULTURE RESULTS: HEAVY GROWTH MIXED ANAEROBES Comment: including the followin+ Bacteroides fragilis 4+ Bacteroides vulgatus 4+ Clostridium innocuum Beta-lactamase negative 4+ Bacteroides caccae 4+ Parvimonas micra 4+ Bacteroides uniformis 4+ Gemella morbillorum 4+ anaerobic small, Gram Positive Rods 4+ Bacteroides thetaiotaomicron Standard workup is now complete. Bacteriology Remark(s): THIS REPORT IS FINAL =--=--=--=--=--=--=--=--=--= --=--=--=--=--=--=--=--=--=- -=--=--=--=--=--=--=-- Performing Laboratory: Bacteriology Report Performed By: [facility] [IA# [id number]] [place] [address] [facility] Jun 21, 2024 06:12 PM LR MICROBIOLOGY RE PORT: Reporting Lab: [facility] [[facility]# [id number]] [place] [address] Accession [UID]: [id number] [[id number]] Received: Jun 21, 2024@18:12 Collection sample: BLOOD [...] Laboratory: Bacteriology Report Performed By: [facility] [[facility]# [id number]] [place] [address] [facility] Jun 21, 2024 06:11 PM LR MICROBIOLOGY RE PORT: Reporting Lab: [facility] [[facility]# [id number]] [place] [address] Accession [UID]: [id number] [[id number]] Received: Jun 21, 2024@18:11 Collection sample: BLOOD [...] Bacteriology Report Performed By: [facility] [CLIA# [id number]] [place] [address] [facility] Encounter Notes: All associated encounter notes This section contains the clinical notes associated to the Encounter. Date/Time Encounter Note(s) Provider Source Jul 10, 2024 11:30 AM PHARMACY EDUCATION NOTE: LOCAL TITLE: EDUCATION PHARMACY MED INSTRUCTION/RECONCILIATION STANDARD TITLE: PHARMACY EDUCATION NOTE DATE OF NOTE: JUL 10, 2024@11:30 ENTRY DATE: JUL 10, 2024@11:30:30 AUTHOR: JULIAN TO EXP COSIGNER: URGENCY: STATUS: COMPLETED MEDICATION DISCHARGE EDUCATION LEARNING NEEDS/OBJECTIVES Participant(s) indicates readiness to learn and has been instructed on indications, side effects, directions for use and given a list of medications. Participant(s) will receive medication information sheets for medications filled. Education included discussion of the following: New medications: -Aspirin -Atropine/Diphenoxylate -Lisinopril -Naloxone nasal spray -Oxycodone -Medical supplies Medication updates: -Furosemide: Hold from taking until follow up with PCP on 07/17/24 Stop taking: -HCTZ/Lisinopril: On just lisinopril now -Augmentin Storage, handling, and proper disposal of medication(s) discussed Pharmacy refill process Tobacco Cessation Discharge Plan Not Applicable Active Outpatient Medications (including Supplies): Source of Info: [facility] Drug Last Refills Rx # Qty Filled Remaining ACETAMINOPHEN 500MG TAB [id number] 100 07/10/2024 (0) TAKE TWO TABLETS BY MOUTH THREE TIMES A DAY NEEDED FOR PAIN Indication: FOR PAIN Provider: ROSALINDA RICHARDSON AMOXICILLIN 875/CLAV K 125MG TAB [id number] 20 04/26/2024 (0) TAKE 1 TABLET BY MOUTH TWICE A DAY Indication: ABSCESS, COLOVESICULAR [facility] Provider: JOSE RANDOLPH 05/26/2024 Stop taking ASPIRIN 81MG EC TAB [id number] 07/07/2024 (0) TAKE ONE TABLET BY MOUTH EVERY MORNING FOR HEART DISEASE Indication: FOR HEART DISEASE Provider: JEVON ZAZUETA ATORVASTATIN CALCIUM 40MG TAB [id number] 45 04/03/2024 (0) TAKE ONE-HALF TABLET BY MOUTH AT BEDTIME FOR CHOLESTEROL Provider: JATINDER CABRERA ATROPINE 0.025/DIPHENOXYLATE 2.5MG TAB [id number] 56 07/10/2024 (0) TAKE 1 TABLET BY MOUTH FOUR TIMES A DAY FOR DIARRHEA Indication: FOR DIARRHEA Provider: ROSALINDA RICHARDSON Returned. Pt did not want oxycodone or atropine/diphenoxylate BAG,LEG LATEX REUSABLE [facility] #[id number] 04/26/2024 (0) USE 1 BAG DIRECTED WITH CHAPPELL Indication: CHAPPELL Provider: JOSE RANDOLPH BAG,LEG LATEX REUSABLE [facility] #[id number] 04/26/2024 (0) USE 1 BAG DIRECTED WITH CHAPPELL Indication: CHAPPELL Provider: JOSE RANDOLPH BARRIER,OSTOMY,NEW IMAGE H#[id number] 10 07/06/2024 (11) USE BARRIER TOPICALLY THREE TIMES A WEEK Indication: OSTOMY CARE Provider: MARTI LAYTON DOCUSATE NA 50MG/SENNOSIDES 8.6MG TAB [id number] 07/07/2024 (0) TAKE 1 TABLET BY MOUTH AT BEDTIME NEEDED FOR CONSTIPATION Indication: FOR CONSTIPATION Provider: JEVON ZAZUETA EMPAGLIFLOZIN 25MG TAB [id number] 05/11/2024 (2) TAKE ONE-HALF TABLET BY MOUTH EVERY DAY Provider: JATINDER CABRERA FUROSEMIDE 20MG TAB [id number] 90 07/10/2024 (3) TAKE ONE TABLET BY MOUTH EVERY DAY FOR EXCESS FLUID Indication: FOR EXCESS FLUID Provider: KIN POLANCO GAUZE PAD 4IN X 4IN 12-PLY STERILE [id number] 05/15/2024 (0) USE GAUZE SPONGE TOPICALLY DIRECTED Provider: MARYBETH POWELL 06/11/2024 GAUZE PAD 4IN X 4IN 12-PLY STERILE [id number] 07/04/2024 (0) USE GAUZE SPONGE GAUZE PAD 4IN X 4IN 12-PLY STERILE TOPICALLY DIRECTED DIRECTED FOR ABSCESS DRAIN CARE Indication: ABCESS DRAIN CARE Provider: MERY NGUYEN GRADUATE URINE CUP PLASTIC 1000ML [id number] 07/04/2024 (0) USE CUP CUP - GRADUATED - 32OZ TOPICALLY DIRECTED ABCESS DRAIN CARE Indication: ABCESS DRAIN CARE Provider: MERY NGUYEN Confirmed with outpatient pharmacy that this is the graduated cylinder cup (looks a triangle-shaped tube) ISOSORBIDE MONONITRATE 30MG SA TAB [id number] 03/09/2024 (2) TAKE ONE TABLET BY MOUTH EVERY DAY FOR CHEST PAIN Indication: FOR CHEST PAIN Provider: JATINDER CABRERA LISINOPRIL 10MG TAB [id number] 07/10/2024 (0) TAKE ONE TABLET BY MOUTH EVERY MORNING FOR BLOOD PRESSURE Indication: FOR BLOOD PRESSURE Provider: KIN POLANCO This replaces hydrochlorothiazide/lisinop ril NALOXONE HCL 4MG/SPRAY SOLN NASAL SPRAY [id number] 07/10/2024 (1) SPRAY 1 DOSE IN ONE NOSTRIL DIRECTED FOR UNRESPONSIVENESS, THEN CALL 911. IF NO CHANGE IN 2-3 MINUTES, GIVE SECOND DOSE IN OPPOSITE NOSTRIL Indication: FOR UNRESPONSIVENESS THEN CALL 911 Provider: ROSALINDA RICHARDSON Returned. Pt did not want oxycodone or atropine/diphenoxylate NITROGLYCERIN 0.4MG SL TAB [id number] 100 06/12/2024 (0) DISSOLVE ONE TABLET UNDER THE TONGUE THREE TIMES A DAY NEEDED CHEST PAIN FOR CHEST PAIN * MAY REPEAT EVERY 5 MINUTES--NO MORE THAN 3 TOTAL Indication: CHEST PAIN Provider: JATINDER CABRERA ONDANSETRON HCL 8MG TAB [id number] 90 07/10/2024 (0) TAKE ONE TABLET BY MOUTH EVERY 8 HOURS NEEDED FOR NAUSEA Indication: FOR NAUSEA Provider: ROSALINDA RICHARDSON OXYCODONE 5MG TAB [id number] 07/10/2024 (0) TAKE ONE TABLET BY MOUTH EVERY 4 HOURS NEEDED FOR PAIN Indication: FOR PAIN Provider: ROSALINDA RICHARDSON Returned. Pt did not want oxycodone or atropine/diphenoxylate PHENAZOPYRIDINE HCL 100MG TAB [id number] 90 04/26/2024 (0) TAKE TWO TABLETS BY MOUTH THREE TIMES A DAY NEEDED FOR BLADDER PAIN Indication: BLADDER PAIN Provider: JOSE RANDOLPH 05/26/2024 POUCH,DRAINABLE,NEW IMAGE H#[id number] 07/06/2024 (11) USE POUCH TOPICALLY THREE TIMES A WEEK Indication: OSTOMY CARE Provider: MARTI LAYTON PSYLLIUM ORAL PWD [id number] 01/31/2024 (3) TAKE 2 TEASPOONSFUL BY MOUTH EVERY DAY FOR CONSTIPATION Indication: FOR CONSTIPATION Provider: JATINDER CABRERA SODIUM CHLORIDE 0.9% PF INJ SYR 10ML [id number] 05/15/2024 (0) INJECT 10 ML TOPICALLY DIRECTED FOR IRRIGATION FOR WOUND CLEANSING Indication: FOR IRRIGATION Provider: MARYBETH POWELL 06/11/2024 SPIRONOLACTONE 25MG TAB [id number] 45 06/11/2024 (2) TAKE ONE-HALF TABLET BY MOUTH EVERY DAY FOR BLOOD PRESSURE Indication: FOR BLOOD PRESSURE Provider: JATINDER CABRERA SPONGE,DRAIN 4IN X 4IN EXCILON DEBORAH#[id number] 05/15/2024 (11) USE SPONGE(S) TOPICALLY DIRECTED Provider: MARYBETH POWELL TAPE,MEDIPORE H SOFT 4IN X 10YD #[id number] 07/04/2024 (11) CUT AND APPLY TAPE TOPICALLY DIRECTED FOR ABSCESS DRAIN CARE Indication: ABCESS DRAIN CARE Provider: MERY NGUYEN URINARY DRAINAGE SET,ELISA-FIT C#[id number] 04/26/2024 (0) USE TUBING BARD 18'' LATEX EXT TUBE #[id number] DIRECTED Indication: CHAPPELL Provider: JOSE RANDOLPH 05/26/2024 RXNV - Non VA Meds (max 6 months) No Non-VA Meds Extracted END TEACHING STRATEGY: Face to Face, Medication information sheets and list of medications READINESS TO LEARN Other need or barriers (specify): -Patient was extremely adament in leaving; discharge medication counseling was kept very succinct and to the best of this authors' abilities PATIENT/FAMILY RESPONSE (OUTCOME): Verbalizes critical information about the topic FOLLOW-UP RECOMMENDED: As directed by discharging provider Rosalinda Armas /alexi/ JULIAN ROBERSON [facility] TO PHARMACIST Signed: 07/10/2024 11:38 JULIAN TO [facility]
--- OUTSIDE RECORDS SUMMARY | 2024-07-16 07:22 | XMS_ITS ---
MD DAILY HOSPITALIZATION DATA [facility] HCS Encounter Summary Created on: July 16, 2024 FLACA WEAVER : 1950 Sex: Male Author Name [facility] Organization [facility] Address [address] [place] [address] Care Team Providers Care Environmental Department Manager Name Role Phone JATINDER CABRERA Primary [...] PART A Sep 29, 2016 PART A [id number] JUDY WEAVER PATIENT Selected Encounter This section includes the information on record at MD for the Encounter. Date/Time Encounter Type Encounter Description Reason Pro vider Source Jul 10, 2024 12:12 AM Inpatient Visit DAILY HOSPITALIZATION DATA [facility] Alex Encounter Template Text not used by MD [...] 13, 2024 08:15 AM AMBULATORY - NONE [facility] Active, Pending, and Scheduled Orders This section [...] SCREEN - LAB BLOOD SP [facility] Jun 08, 2024 09:57 AM Laboratory - Chemi stry Order URINALYSIS URINE WC [facility]CE [facility] Jun 12, 2024 12:00 AM Laboratory - Chemi stry Order BNP PLASMA SP [facility]CE [facility] Jun 21, 2024 05:45 PM Laboratory - Blood Bank Order TYPE & SCREEN - LAB BLOOD WC [facility] Jul 03, 2024 12:00 AM Laboratory - Blood Bank Order TYPE & SCREEN - LAB BLOOD [facility] Jul 16, 2024 12:00 AM Laboratory - Chemi stry Order CBC BLOOD SP [facility]CE [facility] Jul 17, 2024 12:00 AM Laboratory - Chemi stry Order BASIC METABOLIC PANEL+MG PLASMA SP [facility]CE [facility] Lab Results: +/- 30 days of [...] Comment Jul 10, 2024 07:[address] [facility] PHOSPHORUS Specimen Type: PLASMA No comment entered. Ordering Provider: JUANCARLOS ECHOLS S Report Released Date/Time: Jul 09, 2024 12:23 PM Reporting Lab: [facility] [address] Performing Lab: [facility] [address] PHOSPHORUS 3.0 mg/dL 2.3-4.3 Jul 10, 2024 07:[address] [facility] BASIC METABOLIC PANEL+MG Specimen Type: PLASMA No comment entered. Ordering Provider: JUANCARLOS ECHOLS S Report Released Date/Time: Jul 09, 2024 12:23 PM Reporting Lab: [facility] [address] Performing Lab: [facility] [address] CREATININE 0.7 mg/dL 0.7-1.2 UREA NITROGEN 27 mg/dL H 8-26 GLUCOSE 104 mg/dL H 70-100 SODIUM 133 mmol/L L 136-145 POTASSIUM 4.3 mmol/L 3.5-5.1 CHLORIDE 102 mmol/L 98-107 CO2 19 mmol/L L 22-29 CALCIUM 10.1 mg/dL 8.4-10.2 MAGNESIUM 1.9 mg/dL 1.6-2.6 ANION GAP 12 mmol/L 5-15 .CREAT EGFR(CKD-EPI) >90 >60 Jul 10, 2024 07:[address] [facility] CBC Specimen Type: BLOOD No comment entered. Ordering Provider: JUANCARLOS ECHOLS Report Released Date/Time: Jul 09, 2024 12:23 PM Reporting Lab: [facility] [address] Performing Lab: [facility] [address] WBC 18.8 H 4.0-11.0 RBC 5.08 4.60-6.20 HGB 15.9 g/dL 13.5-17.9 HCT 46.8 41.0-54.0 MCV 92.1 fL 80.0-100.0 MCH 31.3 pg 27.0-33.0 MCHC 34.0 g/dL 32.0-37.5 PLT 479 H 150-400 MPV 10.2 fL 9.1-13.0 RDW 13.7 11.5-14.5 Jul 09, 2024 07:[address] [facility] CBC Specimen Type: BLOOD No comment entered. Ordering Provider: QUYNH WEISS Report Released Date/Time: Jul 08, 2024 06:18 PM Reporting Lab: [facility] [address] Performing Lab: [facility] [address] WBC 15.3 H 4.0-11.0 RBC 4.91 4.60-6.20 HGB 15.1 g/dL 13.5-17.9 HCT 45.7 41.0-54.0 MCV 93.1 fL 80.0-100.0 MCH 30.8 pg 27.0-33.0 MCHC 33.0 g/dL 32.0-37.5 PLT 443 H 150-400 MPV 10.0 fL 9.1-13.0 RDW 13.5 11.5-14.5 Jul 08, 2024 10:[address] [facility] URINALYSIS Specimen Type: URINE No comment entered. Ordering Provider: KATELYNN PERSON Report Released Date/Time: Jul 08, 2024 08:41 AM Reporting Lab: [facility] [address] Performing Lab: [facility] [address] URINE COLOR YELLOW SPECIFIC GRAVITY >1.050 H [...] NEGATIVE Jul 08, 2024 09:[address] [facility] CBC Specimen Type: BLOOD Comment: Specimen received in Lab at: [id number] Ordering Provider: JUANCARLOS ECHOLS Report Released Date/Time: Jul 07, 2024 04:49 PM Reporting Lab: [facility] [address] Performing Lab: [facility] [address] WBC 17.5 H 4.0-11.0 RBC 4.88 4.60-6.20 HGB 14.9 g/dL 13.5-17.9 HCT 45.7 41.0-54.0 MCV 93.6 fL 80.0-100.0 MCH 30.5 pg 27.0-33.0 MCHC 32.6 g/dL 32.0-37.5 PLT 472 H 150-400 MPV 10.2 fL 9.1-13.0 RDW 13.7 11.5-14.5 Jul 08, 2024 09:[address] [facility] PHOSPHORUS Specimen Type: PLASMA Comment: Specimen received in Lab at: [id number] Ordering Provider: BALAJADIA,MAR IA S Report Released Date/Time: Jul 07, 2024 04:49 PM Reporting Lab: [facility] [address] Performing Lab: [facility] [address] PHOSPHORUS 2.6 mg/dL 2.3-4.3 Jul 08, 2024 09:[address] [facility] BASIC METABOLIC PANEL+MG Specimen Type: PLASMA Comment: Specimen received in Lab at: 0952 Ordering Provider: JUANCARLOS ECHOLS S Report Released Date/Time: Jul 07, 2024 04:49 PM Reporting Lab: [facility] [address] Performing Lab: [facility] [address] CREATININE 0.9 mg/dL 0.7-1.2 UREA NITROGEN 26 mg/dL 8-26 GLUCOSE 128 mg/dL H 70-100 SODIUM 134 mmol/L L 136-145 POTASSIUM 3.4 mmol/L L 3.5-5.1 CHLORIDE 100 mmol/L 98-107 CO2 24 mmol/L 22-29 CALCIUM 9.8 mg/dL 8.4-10.2 MAGNESIUM 1.8 mg/dL 1.6-2.6 ANION GAP 10 mmol/L 5-15 .CREAT EGFR(CKD-EPI) >90 >60 Jul 07, 2024 02:[address] [facility] C DIFF PANEL Specimen Type: FECES No comment entered. Ordering Provider: JEVON ZAZUETA Report Released Date/Time: Jul 07, 2024 12:26 PM Reporting Lab: [facility] [address] Performing Lab: [facility] [address] C DIFF TOX B GENE PCR NEGATIVE Negative Jul 07, 2024 07:[address] [facility] PHOSPHORUS Specimen Type: PLASMA No comment entered. Ordering Provider: JEVON ZAZUETA Report Released Date/Time: Jul 06, 2024 03:44 PM Reporting Lab: [facility] [address] Performing Lab: [facility] [address] PHOSPHORUS 3.1 mg/dL 2.3-4.3 Jul 07, 2024 07:[address] [facility] BASIC METABOLIC PANEL+MG Specimen Type: PLASMA No comment entered. Ordering Provider: JEVON ZAZUETA Report Released Date/Time: Jul 06, 2024 03:44 PM Reporting Lab: [facility] [address] Performing Lab: [facility] [address] CREATININE 0.9 mg/dL 0.7-1.2 UREA NITROGEN 20 mg/dL 8-26 GLUCOSE 157 mg/dL H 70-100 SODIUM 136 mmol/L 136-145 POTASSIUM 3.7 mmol/L 3.5-5.1 CHLORIDE 102 mmol/L 98-107 CO2 21 mmol/L L 22-29 CALCIUM 9.8 mg/dL 8.4-10.2 MAGNESIUM 1.9 mg/dL 1.6-2.6 ANION GAP 13 mmol/L 5-15 .CREAT EGFR(CKD-EPI) >90 >60 Jul 07, 2024 07:[address] [facility] CBC Specimen Type: BLOOD No comment entered. Ordering Provider: JEVON ZAZUETA Report Released Date/Time: Jul 06, 2024 03:44 PM Reporting Lab: [facility] [address] Performing Lab: [facility] [address] WBC 21.2 H 4.0-11.0 RBC 5.09 4.60-6.20 HGB 15.9 g/dL 13.5-17.9 HCT 48.3 41.0-54.0 MCV 94.9 fL 80.0-100.0 MCH 31.2 pg 27.0-33.0 MCHC 32.9 g/dL 32.0-37.5 PLT 500 H 150-400 MPV 10.3 fL 9.1-13.0 RDW 13.6 11.5-14.5 Jul 06, 2024 07:[address] [facility] CBC Specimen Type: BLOOD No comment entered. Ordering Provider: JEVON ZAZUETA Report Released Date/Time: Jul 05, 2024 01:22 PM Reporting Lab: [facility] [address] Performing Lab: [facility] [address] WBC 18.0 H 4.0-11.0 RBC 4.83 4.60-6.20 HGB 14.6 g/dL 13.5-17.9 HCT 45.5 41.0-54.0 MCV 94.2 fL 80.0-100.0 MCH 30.2 pg 27.0-33.0 MCHC 32.1 g/dL 32.0-37.5 PLT 368 150-400 MPV 10.4 fL 9.1-13.0 RDW 13.6 11.5-14.5 Jul 06, 2024 07:[address] [facility] PHOSPHORUS Specimen Type: PLASMA No comment entered. Ordering Provider: JEVON ZAZUETA Report Released Date/Time: Jul 05, 2024 01:22 PM Reporting Lab: [facility] [address] Performing Lab: [facility] [address] PHOSPHORUS 3.6 mg/dL 2.3-4.3 Jul 06, 2024 07:[address] [facility] BASIC METABOLIC PANEL+MG Specimen Type: PLASMA No comment entered. Ordering Provider: JEVON ZAZUETA Report Released Date/Time: Jul 05, 2024 01:22 PM Reporting Lab: [facility] [address] Performing Lab: [facility] [address] CREATININE 0.7 mg/dL 0.7-1.2 UREA NITROGEN 12 mg/dL 8-26 GLUCOSE 108 mg/dL H 70-100 SODIUM 138 mmol/L 136-145 POTASSIUM 3.4 mmol/L L 3.5-5.1 CHLORIDE 104 mmol/L 98-107 CO2 20 mmol/L L 22-29 CALCIUM 9.3 mg/dL 8.4-10.2 MAGNESIUM 1.9 mg/dL 1.6-2.6 ANION GAP 14 mmol/L 5-15 .CREAT EGFR(CKD-EPI) >90 >60 Jul 05, 2024 07:[address] [facility] MAGNESIUM Specimen Type: PLASMA No comment entered. Ordering Provider: JUANCARLOS ECHOLS S Report Released Date/Time: Jul 04, 2024 09:39 AM Reporting Lab: [facility] [address] Performing Lab: [facility] [address] MAGNESIUM 2.0 mg/dL 1.6-2.6 Jul 05, 2024 07:[address] [facility] PHOSPHORUS Specimen Type: PLASMA No comment entered. Ordering Provider: JUANCARLOS ECHOLS S Report Released Date/Time: Jul 04, 2024 09:39 AM Reporting Lab: [facility] [address] Performing Lab: [facility] [address] PHOSPHORUS 2.0 mg/dL L 2.3-4.3 Jul 05, 2024 07:[address] [facility] BASIC METABOLIC PANEL+MG Specimen Type: PLASMA No comment entered. Ordering Provider: JUANCARLOS ECHOLS S Report Released Date/Time: Jul 04, 2024 09:39 AM Reporting Lab: [facility] [address] Performing Lab: [facility] [address] CREATININE 0.7 mg/dL 0.7-1.2 UREA NITROGEN 12 mg/dL 8-26 GLUCOSE 84 mg/dL 70-100 SODIUM 135 mmol/L L 136-145 POTASSIUM 3.8 mmol/L 3.5-5.1 CHLORIDE 104 mmol/L 98-107 CO2 24 mmol/L 22-29 CALCIUM 9.3 mg/dL 8.4-10.2 MAGNESIUM 2.0 mg/dL 1.6-2.6 ANION GAP 7 mmol/L 5-15 .CREAT EGFR(CKD-EPI) >90 >60 Jul 05, 2024 07:[address] [facility] CBC Specimen Type: BLOOD No comment entered. Ordering Provider: JUANCARLOS ECHOLS S Report Released Date/Time: Jul 04, 2024 09:39 AM Reporting Lab: [facility] [address] Performing Lab: [facility] [address] WBC 18.3 H 4.0-11.0 RBC 4.49 L 4.60-6.20 HGB 14.1 g/dL 13.5-17.9 HCT 43.4 41.0-54.0 MCV 96.7 fL 80.0-100.0 MCH 31.4 pg 27.0-33.0 MCHC 32.5 g/dL 32.0-37.5 PLT 317 150-400 MPV 10.0 fL 9.1-13.0 RDW 13.9 11.5-14.5 Jul 04, 2024 07:[address] [facility] PHOSPHORUS Specimen Type: PLASMA No comment entered. Ordering Provider: GABINO CAMERON Report Released Date/Time: Jul 03, 2024 06:31 PM Reporting Lab: [facility] [address] Performing Lab: [facility] [address] PHOSPHORUS 2.8 mg/dL 2.3-4.3 Jul 04, 2024 07:[address] [facility] BASIC METABOLIC PANEL+MG Specimen Type: PLASMA No comment entered. Ordering Provider: GABINO CAMERON Report Released Date/Time: Jul 03, 2024 06:31 PM Reporting Lab: [facility] [address] Performing Lab: [facility] [address] CREATININE 0.7 mg/dL 0.7-1.2 UREA NITROGEN 16 mg/dL 8-26 GLUCOSE 129 mg/dL H 70-100 SODIUM 137 mmol/L 136-145 POTASSIUM 3.7 mmol/L 3.5-5.1 CHLORIDE 107 mmol/L 98-107 CO2 22 mmol/L 22-29 CALCIUM 9.0 mg/dL 8.4-10.2 MAGNESIUM 1.9 mg/dL 1.6-2.6 ANION GAP 8 mmol/L 5-15 .CREAT EGFR(CKD-EPI) >90 >60 Jul 04, 2024 07:[address] [facility] CBC Specimen Type: BLOOD No comment entered. Ordering Provider: GABINO CAMERON Report Released Date/Time: Jul 03, 2024 06:31 PM Reporting Lab: [facility] [address] Performing Lab: [facility] [address] WBC 20.6 H 4.0-11.0 RBC 4.63 4.60-6.20 HGB 14.2 g/dL 13.5-17.9 HCT 43.4 41.0-54.0 MCV 93.7 fL 80.0-100.0 MCH 30.7 pg 27.0-33.0 MCHC 32.7 g/dL 32.0-37.5 PLT 329 150-400 MPV 10.4 fL 9.1-13.0 RDW 13.8 11.5-14.5 Jul 04, 2024 07:[address] [facility] CBC & DIFF Specimen Type: BLOOD Comment: Manual Differential Performed Ordering Provider: GABINO CAMERON Report Released Date/Time: Jul 03, 2024 06:31 PM Reporting Lab: [facility] [address] Performing Lab: [facility] [address] WBC 20.6 H 4.0-11.0 RBC 4.63 4.60-6.20 [...] PRESENT Jul 04, 2024 07:[address] [facility] BNP Specimen Type: PLASMA No comment entered. Ordering Provider: GABINO CAMERON Report Released Date/Time: Jul 03, 2024 06:31 PM Reporting Lab: [facility] [address] Performing Lab: [facility] [address] BNP 292 pg/mL H <99 Jul 03, 2024 10:[address] [facility] FINGERSTICK GLUCOSE Specimen Type: BLOOD Comment: Save Result Nurse Notified Ordering Provider: KATELYNN PERSON Report Released Date/Time: Jul 03, 2024 10:50 PM Reporting Lab: [facility] [address] Performing Lab: [facility] [address] FINGERSTICK GLUCOSE 126 mg/dL H 70-100 Jul 03, 2024 05:[address] [facility] FINGERSTICK GLUCOSE Specimen Type: BLOOD Comment: Save Result Nurse Notified Ordering Provider: KATELYNN PERSON Report Released Date/Time: Jul 03, 2024 05:46 PM Reporting Lab: [facility] [address] Performing Lab: [facility] [address] FINGERSTICK GLUCOSE 141 mg/dL H 70-100 Jul 03, 2024 02:[address] [facility] POC ABG/ELECTROLYTES Specimen Type: ARTERIAL BLOOD Comment: FIO2 = 97% Patient Temp: 36.0 C Sample Type = ARTERIAL Ordering Provider: MAZIN ARREDONDO Report Released Date/Time: Jul 03, 2024 01:48 PM Reporting Lab: [facility] [address] Performing Lab: [facility] [address] POC PH 7.387 7.35-7.45 POC PCO2 34.4 [...] 80.0-105.0 Jul 03, 2024 01:[address] [facility] POC ABG/ELECTROLYTES Specimen Type: ARTERIAL BLOOD Comment: FIO2 = 53% Patient Temp: 36.2 C Sample Type = ARTERIAL Ordering Provider: MAZIN ARREDONDO Report Released Date/Time: Jul 03, 2024 01:48 PM Reporting Lab: [facility] [address] Performing Lab: [facility] [address] POC PH 7.280 L 7.35-7.45 POC PCO2 [...] 80.0-105.0 Jul 03, 2024 06:[address] [facility] URINALYSIS Specimen Type: URINE No comment entered. Ordering Provider: MARYBETH POWELL Report Released Date/Time: Jun 12, 2024 04:01 PM Reporting Lab: [facility] [address] Performing Lab: [facility] [address] URINE COLOR YELLOW SPECIFIC GRAVITY 1.031 1.003-1.03 [...] NEGATIVE Jul 03, 2024 06:[address] [facility] CBC Specimen Type: BLOOD No comment entered. Ordering Provider: MARYBETH POWELL Report Released Date/Time: Jun 12, 2024 03:59 PM Reporting Lab: [facility] [address] Performing Lab: [facility] [address] WBC 15.8 H 4.0-11.0 RBC 5.11 4.60-6.20 HGB 16.1 g/dL 13.5-17.9 HCT 49.1 41.0-54.0 MCV 96.1 fL 80.0-100.0 MCH 31.5 pg 27.0-33.0 MCHC 32.8 g/dL 32.0-37.5 PLT 357 150-400 MPV 9.8 fL 9.1-13.0 RDW 13.7 11.5-14.5 Jun 24, 2024 09:[address] [facility] BASIC METABOLIC PANEL+MG Specimen Type: PLASMA Comment: Specimen received in Lab at: [id number] Ordering Provider: JEVON ZAZUETA Report Released Date/Time: Jun 23, 2024 06:07 PM Reporting Lab: [facility] [address] Performing Lab: [facility] [address] CREATININE 0.8 mg/dL 0.7-1.2 UREA NITROGEN 13 mg/dL 8-26 GLUCOSE 135 mg/dL H 70-100 SODIUM 135 mmol/L L 136-145 POTASSIUM 3.6 mmol/L 3.5-5.1 CHLORIDE 103 mmol/L 98-107 CO2 24 mmol/L 22-29 CALCIUM 9.2 mg/dL 8.4-10.2 MAGNESIUM 1.9 mg/dL 1.6-2.6 ANION GAP 8 mmol/L 5-15 .CREAT EGFR(CKD-EPI) >90 >60 Jun 24, 2024 09:[address] [facility] CBC Specimen Type: BLOOD Comment: Specimen received in Lab at: [id number] Ordering Provider: JEVON ZAZUETA Report Released Date/Time: Jun 23, 2024 06:07 PM Reporting Lab: [facility] [address] Performing Lab: [facility] [address] WBC 15.5 H 4.0-11.0 RBC 4.93 4.60-6.20 HGB 15.2 g/dL 13.5-17.9 HCT 46.5 41.0-54.0 MCV 94.3 fL 80.0-100.0 MCH 30.8 pg 27.0-33.0 MCHC 32.7 g/dL 32.0-37.5 PLT 223 150-400 MPV 11.4 fL 9.1-13.0 RDW 13.9 11.5-14.5 Jun 23, 2024 07:[address] [facility] COMPREHENSIVE METABOLIC PANEL+MG Specimen Type: PLASMA No comment entered. Ordering Provider: JEVON ZAZUETA Report Released Date/Time: Jun 22, 2024 05:51 PM Reporting Lab: [facility] [address] Performing Lab: [facility] [address] CREATININE 0.7 mg/dL 0.7-1.2 UREA NITROGEN 16 [...] >60 Jun 23, 2024 07:[address] [facility] CBC & DIFF Specimen Type: BLOOD Comment: Automated Differential Performed Ordering Provider: JEVON ZAZUETA Report Released Date/Time: Jun 22, 2024 05:51 PM Reporting Lab: [facility] [address] Performing Lab: [facility] [address] WBC 14.9 H 4.0-11.0 RBC 5.09 4.60-6.20 [...] 0.0-0.1 Jun 22, 2024 06:[address] [facility] CBC Specimen Type: BLOOD No comment entered. Ordering Provider: JEVON ZAZUETA Report Released Date/Time: Jun 22, 2024 05:51 PM Reporting Lab: [facility] [address] Performing Lab: [facility] [address] WBC 16.9 H 4.0-11.0 RBC 5.28 4.60-6.20 HGB 16.9 g/dL 13.5-17.9 HCT 50.4 41.0-54.0 MCV 95.5 fL 80.0-100.0 MCH 32.0 pg 27.0-33.0 MCHC 33.5 g/dL 32.0-37.5 PLT 223 150-400 MPV 10.9 fL 9.1-13.0 RDW 14.0 11.5-14.5 Jun 22, 2024 06:[address] [facility] COMPREHENSIVE METABOLIC PANEL+MG Specimen Type: PLASMA No comment entered. Ordering Provider: JEVON ZAZUETA Report Released Date/Time: Jun 22, 2024 05:51 PM Reporting Lab: [facility] [address] Performing Lab: [facility] [address] CREATININE 0.7 mg/dL 0.7-1.2 UREA NITROGEN 17 [...] >60 Jun 21, 2024 06:[address] [facility] URINALYSIS Specimen Type: URINE No comment entered. Ordering Provider: DELIA MARTINEZ Report Released Date/Time: Jun 21, 2024 05:45 PM Reporting Lab: [facility] [address] Performing Lab: [facility] [address] URINE COLOR YELLOW SPECIFIC GRAVITY 1.041 H [...] NEGATIVE Jun 21, 2024 05:[address] [facility] POC CREATININE Specimen Type: BLOOD No comment entered. Ordering Provider: DELIA MARTINEZ Report Released Date/Time: Jun 21, 2024 06:07 PM Reporting Lab: [facility] [address] Performing Lab: [facility] [address] POC CREATININE 1.1 mg/dL 0.6-1.3 Jun 21, 2024 05:[address] [facility] POC ABG/LACTATE Specimen Type: VENOUS BLOOD No comment entered. Ordering Provider: DELIA MARTINEZ Report Released Date/Time: Jun 21, 2024 06:07 PM Reporting Lab: [facility] [address] Performing Lab: [facility] [address] POC PH 7.470 H 7.31-7.41 POC PCO2 31.2 mm[Hg] L 41.00-51 .0 0 POC PO2 46 mm[Hg] H 35.0-40.0 POC TCO2 24 mmol/L 24.0-29.0 POC HCO3 22.7 mmol/L L 23.0-28.0 POC BE ECT -1 mmol/L POC SO2 85 H 70-75 POC LACTATE 1.85 mmol/L 0.90-1.70 Jun 21, 2024 05:[address] [facility] PROTHROMBIN TIME/INR Specimen Type: PLASMA No comment entered. Ordering Provider: DELIA MARTINEZ Report Released Date/Time: Jun 21, 2024 05:30 PM Reporting Lab: [facility] [address] Performing Lab: [facility] [address] .INR 1.2 H 0.8-1.1 .PT 13.9 s H 9.4-12.5 Jun 21, 2024 05:[address] [facility] LIPASE Specimen Type: PLASMA No comment entered. Ordering Provider: DELIA MARTINEZ Report Released Date/Time: Jun 21, 2024 05:30 PM Reporting Lab: [facility] [address] Performing Lab: [facility] [address] LIPASE 32 U/L <60 Jun 21, 2024 05:[address] [facility] EXTRA GOLD GEL TUBE Specimen Type: SERUM No comment entered. Ordering Provider: DELIA MARTINEZ Report Released Date/Time: Jun 21, 2024 05:41 PM Reporting Lab: [facility] [address] Performing Lab: [facility] [address] EXTRA GOLD GEL TUBE RECEIVED Jun 21, 2024 05:[address] [facility] COMPREHENSIVE METABOLIC PANEL+MG Specimen Type: PLASMA No comment entered. Ordering Provider: DELIA MARTINEZ Report Released Date/Time: Jun 21, 2024 05:30 PM Reporting Lab: [facility] [address] Performing Lab: [facility] [address] CREATININE 0.9 mg/dL 0.7-1.2 UREA NITROGEN 29 [...] <0.5 Jun 21, 2024 05:[address] [facility] CBC & DIFF Specimen Type: BLOOD Comment: Manual Differential Performed Ordering Provider: DELIA MARTINEZ Report Released Date/Time: Jun 21, 2024 05:30 PM Reporting Lab: [facility] [address] Performing Lab: [facility] [address] WBC 21.3 H 4.0-11.0 RBC 5.48 4.60-6.20 [...] 15, 2024 08:30 AM [facility] FORMER [facility]ER [facility] Tobacco Use History This section includes a history of the smoking, or tobacco-related health factors, that were collected on or before the date of the Encounter. The data comes from the MD facility where the Encounter took place. Date/Time Smoking Status/Tobacco Use Comment F acility May 15, 2024 08:30 AM VA-TOBACCO QUIT [address] [facility] May 06, 2023 11:30 AM VA-TOBACCO FORMER USER [facility] May 06, 2023 11:30 AM VA-TOBACCO QUIT [address] [facility] Jun 04, 2022 09:00 AM VA-TOBACCO FORMER USER [facility] Jun 04, 2022 09:00 AM VA-TOBACCO QUIT [address] [facility] Jul 10, 2021 08:00 AM VA-TOBACCO FORMER USER [facility] Jul 10, 2021 08:00 AM VA-TOBACCO QUIT 5 TO < [address] [facility] May 23, 2020 08:30 AM VA-TOBACCO FORMER USER [facility] May 23, 2020 08:30 AM VA-TOBACCO QUIT 5 TO < [address] [facility] Mar 20, 2019 04:03 PM VA-TOBACCO FORMER USER [facility] Mar 20, 2019 04:03 PM VA-TOBACCO QUIT 5 TO < [address] [facility] Mar 21, 2018 08:13 AM FORMER TOBACCO USER 7Y OR GREATE R [facility] Feb 24, 2017 09:24 AM FORMER TOBACCO USER 7Y OR GREATE R [facility] January 07, 2016 08:01 AM FORMER TOBACCO USE >1Y <7Y [facility] Feb 03, 2015 07:58 AM FORMER TOBACCO USE <1Y [facility] Feb 26, 2014 08:41 AM CURRENT TOBACCO USER [facility] May 13, 2011 01:45 [address]BACCO USER [facility] Advance Directives: All historical and current [...] VIEWS PA A ND LAT: FLACA WEAVER [id number] -1950 M Exm Date: JUL 08, 2024@10:09 Req Phys: KATELYNN PERSON Pat Loc: 2KG/07-08-2024@11:49 Img Loc: MAIN X-RAY Service: [place] [address] (Case 24 COMPLETE) CHEST 2 VIEWS PA AND LAT (RAD Detailed) CPT:88824 Reason for Study: Uptrending WBC, POD 5 [...] 08, 2024 Date Verified: JUL 08, 2024 Vacuum Tester Cans E-Sig: Report: CHEST 2 VIEWS PA AND LAT HISTORY: Uptrending WBC, POD 5 COMPARISON: CT chest 11/12/2022 TECHNIQUE: Frontal and lateral views of the chest, submitted to the [facility] (NTP) for interpretation. FINDINGS: Lungs: Clear. No focal consolidation. No pulmonary edema. Pleura: No pleural effusion or pneumothorax. Mediastinum: Normal size and contour. Bones: Unremarkable. Impression: No acute cardiopulmonary disease. READING PHYSICIAN: Sarbjit Vaughn M.D. -[id number] 07/08/2024 12:46 EST [facility] National Teleradiology Program [phone] (For Medical Practitioner Use Only) Attention Patients / Veterans: If you have questions or concerns about these test results, please contact your ordering provider or primary care team. Primary Interpreting Staff: RADIOLOGY,OUTSIDE SERVICE, Staff Physician / RADIOLOGY,OUTSIDE SERVICE [facility] Jul 08, 2024 10:[address] (AP) ABDOMEN/PE LVIS W CONTRAST: FLACA WEAVER [id number] -1950 M Exm Date: JUL 08, 2024@10:00 Req Phys: KATELYNN PERSON Loc: 2KG/07-08-2024@12:07 Img Loc: CT IMAGING Service: [place] [address] (Case 22 COMPLETE) CT (AP) ABDOMEN/PELVIS W CONTRAST(CT Detailed) CPT:73230 Contrast Media : Non-ionic Iodinated Reason for [...] PLASMA .CREAT EGFR(CKD-E >90 Ref: >=60 Allergies: ([place] only) TERAZOSIN (Mar 13, 2015) Report Status: Verified Date Reported: JUL 08, 2024 Date Verified: JUL 08, 2024 Vacuum Tester Cans E-Sig: Report: CT (AP) ABDOMEN/PELVIS W CONTRAST HISTORY: POD 5, Uptrending WBC - Concern for Abscess/other infection COMPARISON: June 21, 2024 TECHNIQUE: CT abdomen and pelvis was performed after intravenous contrast. Axial, sagittal and coronal reformatted images. The study was performed at the local [facility] facility and images were sent to the [facility] (NTP) for interpretation. Number [...] as noted above READING PHYSICIAN: Celestino Blanc -[id number] 07/08/2024 13:[address] [facility] National [employer] [facility] Program [phone] (For Medical Practitioner Use Only) Attention Patients / Veterans: If you have questions or concerns about these test results, please contact your ordering provider or primary care team. Primary Interpreting Staff: RADIOLOGY,OUTSIDE SERVICE, Staff Physician / RADIOLOGY,OUTSIDE SERVICE [facility] Jun 22, 2024 11:49 AM ABSCESS DRAIN PLAC EMENT PERITONEAL (P): FLACA WEAVER [id number] -1950 M Exm Date: JUN 22, 2024@11:49 Req Phys: ANGELA HOLDEN Pat Loc: [facility]/06-22-2024@17:14 Img Loc: INTERVENTIONAL RADIOLOGY Service: [place] [address] (Case [id number] COMPLETE) IR PERITONEAL/RETROPERITONEAL PER(ANI Detailed) CPT:83246 Reason for Study: diverticulitis with abscess (Case 3570 COMPLETE) IR MOD SEDATION 10-22 MIN (ANI Detailed) CPT:62194 Clinical History: IS NOT under investigation for COVID-19 or is COVID-19 negative 73 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 please place abscess drain. Contact number for responsible provider who can be reached for any questions or notifications of critical findings: [phone] n/a LAST CREATININE 0.9 (06/21/24) Report Status: Verified Date Reported: JUN 22, 2024 Date Verified: JUN 22, 2024 Vacuum Tester Cans E-Sig:/ES/LISA PENDLETON MD Report: PROCEDURES: Placement of [...] obtained. A pre-procedural Time-Out was performed per [facility] policy. The patient was placed in the supine position on the CT table. Preprocedural scan performed. The suprapubic region/lower abdominal wall was sterilely prepped and draped in the usual fashion.1% lidocaine without epinephrine was used for local anesthesia. Using real-time CT fluoroscopy, a 5 Romansh [employer] centesis catheter was advanced into the collection in the left pelvis. A wire was coiled in the collection. The tract into the collection was dilated to accommodate the 12 Romansh locking pigtail drainage catheter. There was return [...] Primary Interpreting Staff: LISA PENDLETON MD, RADIOLOGIST (Vacuum Tester Cans) /JRT LISA PENDLETON [facility] Jun 22, 2024 11:[address] NEEDLE PLACEMEN T (P): FLACA WEAVER [id number] -1950 M Exm Date: JUN 22, 2024@11:48 Req Phys: ANGELA HOLDEN [facility] Loc: [facility]/06-22-2024@17:14 Im Loc: CT IMAGING Service: [place] [address] (Case [id number] COMPLETE) CT SCAN FOR NEEDLE PLACEMENT (CT Detailed) CPT:39368 Reason for Study: l pelvic abscess drain Clinical History: Report Status: Verified Date Reported: JUN 22, 2024 Date Verified: JUN 22, 2024 Vacuum Tester Cans E-Sig:/ES/LISA PENDLETON MD Report: PROCEDURES: Placement of [...] obtained. A pre-procedural Time-Out was performed per [facility] policy. The patient was placed in the supine position on the CT table. Preprocedural scan performed. The suprapubic region/lower abdominal wall was sterilely prepped and draped in the usual fashion.1% lidocaine without epinephrine was used for local anesthesia. Using real-time CT fluoroscopy, a 5 Romansh [employer] catheter was advanced into the collection in the left pelvis. A wire was coiled in the collection. The tract into the collection was dilated to accommodate the 12 Romansh locking pigtail drainage catheter. There was return [...] Primary Interpreting Staff: LISA PENDLETON MD, RADIOLOGIST (Vacuum Tester Cans) /JRT LISA PENDLETON [facility] Jun 21, 2024 06:[address] (AP) ABDOMEN/PE LVIS (P): MEGFLACA YAMIL [id number] -1950 M Ex Date: JUN 21, 2024@18:09 Req Phys: DELIA MARTINEZ Loc: [facility] EMERGENCY DEPT WALK-IN (Re Img Loc: CT IMAGING Service: [place] [address] (Case [id number] COMPLETE) CT (AP) ABDOMEN/PELVIS W CONTRAST(CT Detailed) CPT:45791 Contrast Media : Non-ionic Iodinated Reason for [...] PLASMA .CREAT EGFR(CKD-E >90 Ref: >=60 Allergies: ([place] only) TERAZOSIN (Mar 13, 2015) Defer to [...] 21, 2024 Date Verified: JUN 21, 2024 Vacuum Tester Cans E-Sig:/ES/CARLOS A CUNNINGHAM DO Report: EXAMINATION: CT [...] Interpreting Staff: CARLOS A CUNNINGHAM DO, RADIOLOGIST (Vacuum Tester Cans) /CARLOS A ROWELL [facility] Pathology Reports: +/- 30 days of [...] URGENCY: STATUS: COMPLETED $APHDR Reporting Lab: [facility] [CLIA# [id number]] [place] [address] - - - - - - - [...] - PATHOLOGY REPORT Accession No. [id number] - - - - - - - [...] - PATHOLOGY REPORT Accession No. [id number] - - - - - - - [...] Second circumferential surgical margin, en face; E-F: Pilot Safety Inspector diverticula; G: Pilot Safety Inspector section of mesentery; H: Random telephone sales representative section of additional adipose tissue [...] One colonic tissue ring, bisected transversely. [facility]. [facility]: Microscopic examination performed. DIAGNOSIS: 1. Colon, sigmoid, sigmoidectomy-- - Diverticulosis with perforation and focal abscess formation 2. Colon, anastomotic rings, excision-- - Viable colonic mucosa without diagnostic abnormality /es/ EDUARDO PALOMARES MD STAFF PATHOLOGIST Signed Jul 06, 2024@10:40 Performing Laboratory: Surgical Pathology Report Performed By: 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 Jun 22, 2024 01:15 PM LR MICROBIOLOGY RE PORT: Reporting Lab: [facility] [CLIA# [id number]] [place] [address] Accession [UID]: [id number] [[id number]] Received: Jun 22, 2024@13:38 Collection sample: FLUID Collection date: Jun 22, 2024 13:15 Provider: ANGELA HOLDEN Comment on specimen: LLQ ABSCESS, RECEIVED IN ANAEROBIC TRANSPORT VIAL Test(s) ordered: GRAM STAIN.................... completed: Jun 22, 2024 15:03 CULTURE & SUSCEPTIBILITY...... completed: Jun 25, 2024 * BACTERIOLOGY FINAL REPORT => Jun 25, 2024 10:56 TECH CODE: [id number] GRAM STAIN: DIRECT SMEAR of specimen before [...] Laboratory: Bacteriology Report Performed By: [facility] [CLIA# [id number]] [place] [address] [facility] Jun 22, 2024 01:15 PM LR MICROBIOLOGY RE PORT: Reporting Lab: [facility] [CLIA# [id number]] [place] [address] Accession [UID]: [id number] [[id number]] Received: Jun 22, 2024@13:38 Collection sample: FLUID Collection date: Jun 22, 2024 13:15 Provider: ANGELA HOLDEN Comment on specimen: LLQ ABSCESS, RECEIVED IN ANAEROBIC TRANSPORT VIAL Test(s) ordered: ANAEROBIC CULTURE............. completed: Jun 28, 2024 * BACTERIOLOGY FINAL REPORT => Jun 28, 2024 10:08 [facility] CODE: [id number] CULTURE RESULTS: HEAVY GROWTH MIXED ANAEROBES Comment: including the followin+ Bacteroides fragilis 4+ Bacteroides vulgatus 4+ Clostridium innocuum Beta-lactamase negative 4+ Bacteroides caccae 4+ Parvimonas micra 4+ Bacteroides uniformis 4+ Gemella morbillorum 4+ anaerobic small, Gram Positive Rods 4+ Bacteroides thetaiotaomicron Standard workup is now complete. Bacteriology Remark(s): THIS REPORT IS FINAL =--=--=--=--=--=--=--=--=--= --=--=--=--=--=--=--=--=--=- -=--=--=--=--=--=--=-- Performing Laboratory: Bacteriology Report Performed By: [facility] [CLIA# [id number]] [place] [address] [facility] Jun 21, 2024 06:12 PM LR MICROBIOLOGY RE PORT: Reporting Lab: [facility] [IA# [id number]] [place] [address] Accession [UID]: [id number] [[id number]] Received: Jun 21, 2024@18:12 Collection sample: BLOOD [...] Laboratory: Bacteriology Report Performed By: [facility] [IA# [id number]] [place] [address] [facility] Jun 21, 2024 06:11 PM LR MICROBIOLOGY RE PORT: Reporting Lab: [facility] [IA# [id number]] [place] [address] Accession [UID]: [id number] [[id number]] Received: Jun 21, 2024@18:11 Collection sample: BLOOD [...] Laboratory: Bacteriology Report Performed By: [facility] [CLIA# [id number]] [place] [address] [facility]
--- OUTSIDE RECORDS SUMMARY | 2024-07-16 07:22 | XMS_ITS ---
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 Date/Time Encounter Type Encounter Description Reason Pro vider Source Jul 10, 2024 09:35 AM Inpatient Visit DAILY HOSPITALIZATION DATA [facility] Encounter Template Text not used by [place] [...] 2024 08:15 AM AMBULATORY - NONE [facility] Active, Pending, and Scheduled Orders This [...] TYPE & SCREEN - LAB BLOOD SP [facility] Jun 08, 2024 09:57 AM Laboratory - Chemi stry Order URINALYSIS URINE WC ONCE [facility] Jun 12, 2024 12:00 AM Laboratory - Chemi stry Order BNP PLASMA SP ONCE [facility] Jun 21, 2024 05:45 PM Laboratory - Blood Bank Order TYPE & SCREEN - LAB BLOOD WC [facility] Jul 03, 2024 12:00 AM Laboratory - Blood Bank Order TYPE & SCREEN - LAB BLOOD [facility] Jul 16, 2024 12:00 AM Laboratory - Chemi stry Order CBC BLOOD SP ONCE [facility] Jul 17, 2024 12:00 AM Laboratory - Chemi stry Order BASIC METABOLIC PANEL+MG PLASMA SP ONCE [facility] Lab Results: +/- 30 days [...] Range Comment Jul 10, 2024 07:16 AM [facility] PHOSPHORUS Specimen Type: PLASMA No comment entered. Ordering Provider: JUANCARLOS ECHOLS S Report Released Date/Time: Jul 09, 2024 12:23 PM Reporting Lab: [facility] [address] Performing Lab: [facility] [address] PHOSPHORUS 3.0 mg/dL 2.3-4.3 Jul 10, 2024 07:16 AM [facility] BASIC METABOLIC PANEL+MG Specimen Type: PLASMA No comment entered. Ordering Provider: JUANCARLOS ECHOLS S Report Released Date/Time: Jul 09, 2024 12:23 PM Reporting Lab: [facility] [address] Performing Lab: [facility] [address] CREATININE 0.7 mg/dL 0.7-1.2 UREA NITROGEN 27 mg/dL H 8-26 GLUCOSE 104 mg/dL H 70-100 SODIUM 133 mmol/L L 136-145 POTASSIUM 4.3 mmol/L 3.5-5.1 CHLORIDE 102 mmol/L 98-107 CO2 19 mmol/L L 22-29 CALCIUM 10.1 mg/dL 8.4-10.2 MAGNESIUM 1.9 mg/dL 1.6-2.6 ANION GAP 12 mmol/L 5-15 .CREAT EGFR(CKD-EPI) >90 >60 Jul 10, 2024 07:15 AM [facility] CBC Specimen Type: BLOOD No comment entered. Ordering Provider: JUANCARLOS ECHOLS Report Released Date/Time: Jul 09, 2024 12:23 PM Reporting Lab: [facility] [address] Performing Lab: [facility] [address] WBC 18.8 H 4.0-11.0 RBC 5.08 4.60-6.20 HGB 15.9 g/dL 13.5-17.9 HCT 46.8 41.0-54.0 MCV 92.1 fL 80.0-100.0 MCH 31.3 pg 27.0-33.0 MCHC 34.0 g/dL 32.0-37.5 PLT 479 H 150-400 MPV 10.2 fL 9.1-13.0 RDW 13.7 11.5-14.5 Jul 09, 2024 07:08 AM [facility] CBC Specimen Type: BLOOD No comment entered. Ordering Provider: QUYNH WEISS Report Released Date/Time: Jul 08, 2024 06:18 PM Reporting Lab: [facility] [address] Performing Lab: [facility] [address] WBC 15.3 H 4.0-11.0 RBC 4.91 4.60-6.20 HGB 15.1 g/dL 13.5-17.9 HCT 45.7 41.0-54.0 MCV 93.1 fL 80.0-100.0 MCH 30.8 pg 27.0-33.0 MCHC 33.0 g/dL 32.0-37.5 PLT 443 H 150-400 MPV 10.0 fL 9.1-13.0 RDW 13.5 11.5-14.5 Jul 08, 2024 10:50 AM [facility] URINALYSIS Specimen Type: URINE No comment entered. Ordering Provider: KATELYNN PERSON Report Released Date/Time: Jul 08, 2024 08:41 AM Reporting Lab: [facility] [address] Performing Lab: [facility] [address] URINE COLOR YELLOW SPECIFIC GRAVITY >1.050 H [...] NEGATIVE NEGATIVE Jul 08, 2024 09:54 AM [facility] CBC Specimen Type: BLOOD Comment: Specimen received in Lab at: [id number] Ordering Provider: JUANCARLOS ECHOLS Report Released Date/Time: Jul 07, 2024 04:49 PM Reporting Lab: [facility] [address] Performing Lab: [facility] [address] WBC 17.5 H 4.0-11.0 RBC 4.88 4.60-6.20 HGB 14.9 g/dL 13.5-17.9 HCT 45.7 41.0-54.0 MCV 93.6 fL 80.0-100.0 MCH 30.5 pg 27.0-33.0 MCHC 32.6 g/dL 32.0-37.5 PLT 472 H 150-400 MPV 10.2 fL 9.1-13.0 RDW 13.7 11.5-14.5 Jul 08, 2024 09:54 AM [facility] PHOSPHORUS Specimen Type: PLASMA Comment: Specimen received in Lab at: 0952 Ordering Provider: BALAJADIA,MAR IA S Report Released Date/Time: Jul 07, 2024 04:49 PM Reporting Lab: [facility] [address] Performing Lab: [facility] [address] PHOSPHORUS 2.6 mg/dL 2.3-4.3 Jul 08, 2024 09:54 AM [facility] BASIC METABOLIC PANEL+MG Specimen Type: PLASMA Comment: Specimen received in Lab at: [id number] Ordering Provider: JUANCARLOS ECHOLS S Report Released Date/Time: Jul 07, 2024 04:49 PM Reporting Lab: [facility] [address] Performing Lab: [facility] [address] CREATININE 0.9 mg/dL 0.7-1.2 UREA NITROGEN 26 mg/dL 8-26 GLUCOSE 128 mg/dL H 70-100 SODIUM 134 mmol/L L 136-145 POTASSIUM 3.4 mmol/L L 3.5-5.1 CHLORIDE 100 mmol/L 98-107 CO2 24 mmol/L 22-29 CALCIUM 9.8 mg/dL 8.4-10.2 MAGNESIUM 1.8 mg/dL 1.6-2.6 ANION GAP 10 mmol/L 5-15 .CREAT EGFR(CKD-EPI) >90 >60 Jul 07, 2024 02:00 PM [facility] C DIFF PANEL Specimen Type: FECES No comment entered. Ordering Provider: JEVON ZAZUETA Report Released Date/Time: Jul 07, 2024 12:26 PM Reporting Lab: [facility] [address] Performing Lab: [facility] [address] C DIFF TOX B GENE PCR NEGATIVE Negative Jul 07, 2024 07:41 AM [facility] PHOSPHORUS Specimen Type: PLASMA No comment entered. Ordering Provider: JEVON ZAZUETA Report Released Date/Time: Jul 06, 2024 03:44 PM Reporting Lab: [facility] [address] Performing Lab: [facility] [address] PHOSPHORUS 3.1 mg/dL 2.3-4.3 Jul 07, 2024 07:41 AM [facility] BASIC METABOLIC PANEL+MG Specimen Type: PLASMA No comment entered. Ordering Provider: JEVON ZAZUETA Report Released Date/Time: Jul 06, 2024 03:44 PM Reporting Lab: [facility] [address] Performing Lab: [facility] [address] CREATININE 0.9 mg/dL 0.7-1.2 UREA NITROGEN 20 mg/dL 8-26 GLUCOSE 157 mg/dL H 70-100 SODIUM 136 mmol/L 136-145 POTASSIUM 3.7 mmol/L 3.5-5.1 CHLORIDE 102 mmol/L 98-107 CO2 21 mmol/L L 22-29 CALCIUM 9.8 mg/dL 8.4-10.2 MAGNESIUM 1.9 mg/dL 1.6-2.6 ANION GAP 13 mmol/L 5-15 .CREAT EGFR(CKD-EPI) >90 >60 Jul 07, 2024 07:40 AM [facility] CBC Specimen Type: BLOOD No comment entered. Ordering Provider: JEVON ZAZUETA Report Released Date/Time: Jul 06, 2024 03:44 PM Reporting Lab: [facility] [address] Performing Lab: [facility] [address] WBC 21.2 H 4.0-11.0 RBC 5.09 4.60-6.20 HGB 15.9 g/dL 13.5-17.9 HCT 48.3 41.0-54.0 MCV 94.9 fL 80.0-100.0 MCH 31.2 pg 27.0-33.0 MCHC 32.9 g/dL 32.0-37.5 PLT 500 H 150-400 MPV 10.3 fL 9.1-13.0 RDW 13.6 11.5-14.5 Jul 06, 2024 07:21 AM [facility] CBC Specimen Type: BLOOD No comment entered. Ordering Provider: JEVON ZAZUETA Report Released Date/Time: Jul 05, 2024 01:22 PM Reporting Lab: [facility] [address] Performing Lab: [facility] [address] WBC 18.0 H 4.0-11.0 RBC 4.83 4.60-6.20 HGB 14.6 g/dL 13.5-17.9 HCT 45.5 41.0-54.0 MCV 94.2 fL 80.0-100.0 MCH 30.2 pg 27.0-33.0 MCHC 32.1 g/dL 32.0-37.5 PLT 368 150-400 MPV 10.4 fL 9.1-13.0 RDW 13.6 11.5-14.5 Jul 06, 2024 07:21 AM [facility] PHOSPHORUS Specimen Type: PLASMA No comment entered. Ordering Provider: JEVON ZAZUETA Report Released Date/Time: Jul 05, 2024 01:22 PM Reporting Lab: [facility] [address] Performing Lab: [facility] [address] PHOSPHORUS 3.6 mg/dL 2.3-4.3 Jul 06, 2024 07:21 AM [facility] BASIC METABOLIC PANEL+MG Specimen Type: PLASMA No comment entered. Ordering Provider: JEVON ZAZUETA Report Released Date/Time: Jul 05, 2024 01:22 PM Reporting Lab: [facility] [address] Performing Lab: [facility] [address] CREATININE 0.7 mg/dL 0.7-1.2 UREA NITROGEN 12 mg/dL 8-26 GLUCOSE 108 mg/dL H 70-100 SODIUM 138 mmol/L 136-145 POTASSIUM 3.4 mmol/L L 3.5-5.1 CHLORIDE 104 mmol/L 98-107 CO2 20 mmol/L L 22-29 CALCIUM 9.3 mg/dL 8.4-10.2 MAGNESIUM 1.9 mg/dL 1.6-2.6 ANION GAP 14 mmol/L 5-15 .CREAT EGFR(CKD-EPI) >90 >60 Jul 05, 2024 07:17 AM [facility] MAGNESIUM Specimen Type: PLASMA No comment entered. Ordering Provider: JUANCARLOS ECHOLS S Report Released Date/Time: Jul 04, 2024 09:39 AM Reporting Lab: [facility] [address] Performing Lab: [facility] [address] MAGNESIUM 2.0 mg/dL 1.6-2.6 Jul 05, 2024 07:17 AM [facility] PHOSPHORUS Specimen Type: PLASMA No comment entered. Ordering Provider: JUANCARLOS ECHOLS S Report Released Date/Time: Jul 04, 2024 09:39 AM Reporting Lab: [facility] [address] Performing Lab: [facility] [address] PHOSPHORUS 2.0 mg/dL L 2.3-4.3 Jul 05, 2024 07:17 AM [facility] BASIC METABOLIC PANEL+MG Specimen Type: PLASMA No comment entered. Ordering Provider: JUANCARLOS ECHOLS S Report Released Date/Time: Jul 04, 2024 09:39 AM Reporting Lab: [facility] [address] Performing Lab: [facility] [address] CREATININE 0.7 mg/dL 0.7-1.2 UREA NITROGEN 12 mg/dL 8-26 GLUCOSE 84 mg/dL 70-100 SODIUM 135 mmol/L L 136-145 POTASSIUM 3.8 mmol/L 3.5-5.1 CHLORIDE 104 mmol/L 98-107 CO2 24 mmol/L 22-29 CALCIUM 9.3 mg/dL 8.4-10.2 MAGNESIUM 2.0 mg/dL 1.6-2.6 ANION GAP 7 mmol/L 5-15 .CREAT EGFR(CKD-EPI) >90 >60 Jul 05, 2024 07:16 AM [facility] CBC Specimen Type: BLOOD No comment entered. Ordering Provider: JUANCARLOS ECHOLS S Report Released Date/Time: Jul 04, 2024 09:39 AM Reporting Lab: [facility] [address] Performing Lab: [facility] [address] WBC 18.3 H 4.0-11.0 RBC 4.49 L 4.60-6.20 HGB 14.1 g/dL 13.5-17.9 HCT 43.4 41.0-54.0 MCV 96.7 fL 80.0-100.0 MCH 31.4 pg 27.0-33.0 MCHC 32.5 g/dL 32.0-37.5 PLT 317 150-400 MPV 10.0 fL 9.1-13.0 RDW 13.9 11.5-14.5 Jul 04, 2024 07:17 AM [facility] BASIC METABOLIC PANEL+MG Specimen Type: PLASMA No comment entered. Ordering Provider: GABINO CAMERON Report Released Date/Time: Jul 03, 2024 06:31 PM Reporting Lab: [facility] [address] Performing Lab: [facility] [address] CREATININE 0.7 mg/dL 0.7-1.2 UREA NITROGEN 16 mg/dL 8-26 GLUCOSE 129 mg/dL H 70-100 SODIUM 137 mmol/L 136-145 POTASSIUM 3.7 mmol/L 3.5-5.1 CHLORIDE 107 mmol/L 98-107 CO2 22 mmol/L 22-29 CALCIUM 9.0 mg/dL 8.4-10.2 MAGNESIUM 1.9 mg/dL 1.6-2.6 ANION GAP 8 mmol/L 5-15 .CREAT EGFR(CKD-EPI) >90 >60 Jul 04, 2024 07:17 AM [facility] PHOSPHORUS Specimen Type: PLASMA No comment entered. Ordering Provider: GABINO CAMERON Report Released Date/Time: Jul 03, 2024 06:31 PM Reporting Lab: [facility] [address] Performing Lab: [facility] [address] PHOSPHORUS 2.8 mg/dL 2.3-4.3 Jul 04, 2024 07:16 AM [facility] CBC Specimen Type: BLOOD No comment entered. Ordering Provider: GABINO CAMERON Report Released Date/Time: Jul 03, 2024 06:31 PM Reporting Lab: [facility] [address] Performing Lab: [facility] [address] WBC 20.6 H 4.0-11.0 RBC 4.63 4.60-6.20 HGB 14.2 g/dL 13.5-17.9 HCT 43.4 41.0-54.0 MCV 93.7 fL 80.0-100.0 MCH 30.7 pg 27.0-33.0 MCHC 32.7 g/dL 32.0-37.5 PLT 329 150-400 MPV 10.4 fL 9.1-13.0 RDW 13.8 11.5-14.5 Jul 04, 2024 07:16 AM [facility] CBC & DIFF Specimen Type: BLOOD Comment: Manual Differential Performed Ordering Provider: GABINO CAMERON Report Released Date/Time: Jul 03, 2024 06:31 PM Reporting Lab: [facility] [address] Performing Lab: [facility] [address] WBC 20.6 H 4.0-11.0 RBC 4.63 4.60-6.20 [...] MORPHOLOGY PRESENT Jul 04, 2024 07:15 AM [facility] BNP Specimen Type: PLASMA No comment entered. Ordering Provider: GABINO CAMERON Report Released Date/Time: Jul 03, 2024 06:31 PM Reporting Lab: [facility] [address] Performing Lab: [facility] [address] BNP 292 pg/mL H <99 Jul 03, 2024 10:32 PM [facility] FINGERSTICK GLUCOSE Specimen Type: BLOOD Comment: Save Result Nurse Notified Ordering Provider: KATELYNN PERSON Report Released Date/Time: Jul 03, 2024 10:50 PM Reporting Lab: [facility] [address] Performing Lab: [facility] [address] FINGERSTICK GLUCOSE 126 mg/dL H 70-100 Jul 03, 2024 05:33 PM [facility] FINGERSTICK GLUCOSE Specimen Type: BLOOD Comment: Save Result Nurse Notified Ordering Provider: KATELYNN PERSON Report Released Date/Time: Jul 03, 2024 05:46 PM Reporting Lab: [facility] [address] Performing Lab: [facility] [address] FINGERSTICK GLUCOSE 141 mg/dL H 70-100 Jul 03, 2024 02:31 PM [facility] POC ABG/ELECTROLYTES Specimen Type: ARTERIAL BLOOD Comment: FIO2 = 97% Patient Temp: 36.0 C Sample Type = ARTERIAL Ordering Provider: MAZIN ARREDONDO Report Released Date/Time: Jul 03, 2024 01:48 PM Reporting Lab: [facility] [address] Performing Lab: [facility] [address] POC PH 7.387 7.35-7.45 POC PCO2 34.4 [...] H 80.0-105.0 Jul 03, 2024 01:05 PM [facility] POC ABG/ELECTROLYTES Specimen Type: ARTERIAL BLOOD Comment: FIO2 = 53% Patient Temp: 36.2 C Sample Type = ARTERIAL Ordering Provider: MAZIN ARREDONDO Report Released Date/Time: Jul 03, 2024 01:48 PM Reporting Lab: [facility] [address] Performing Lab: [facility] [address] POC PH 7.280 L 7.35-7.45 POC PCO2 [...] mm[Hg] 80.0-105.0 Jul 03, 2024 06:15 AM [facility] URINALYSIS Specimen Type: URINE No comment entered. Ordering Provider: MARYBETH POWELL Report Released Date/Time: Jun 12, 2024 04:01 PM Reporting Lab: [facility] [address] Performing Lab: [facility] [address] URINE COLOR YELLOW SPECIFIC GRAVITY 1.031 1.003-1.03 [...] 250 NEGATIVE Jul 03, 2024 06:13 AM [facility] CBC Specimen Type: BLOOD No comment entered. Ordering Provider: MARYBETH POWELL Report Released Date/Time: Jun 12, 2024 03:59 PM Reporting Lab: [facility] [address] Performing Lab: [facility] [address] WBC 15.8 H 4.0-11.0 RBC 5.11 4.60-6.20 HGB 16.1 g/dL 13.5-17.9 HCT 49.1 41.0-54.0 MCV 96.1 fL 80.0-100.0 MCH 31.5 pg 27.0-33.0 MCHC 32.8 g/dL 32.0-37.5 PLT 357 150-400 MPV 9.8 fL 9.1-13.0 RDW 13.7 11.5-14.5 Jun 24, 2024 09:50 AM [facility] BASIC METABOLIC PANEL+MG Specimen Type: PLASMA Comment: Specimen received in Lab at: [id number] Ordering Provider: JEVON ZAZUETA Report Released Date/Time: Jun 23, 2024 06:07 PM Reporting Lab: [facility] [address] Performing Lab: [facility] [address] CREATININE 0.8 mg/dL 0.7-1.2 UREA NITROGEN 13 mg/dL 8-26 GLUCOSE 135 mg/dL H 70-100 SODIUM 135 mmol/L L 136-145 POTASSIUM 3.6 mmol/L 3.5-5.1 CHLORIDE 103 mmol/L 98-107 CO2 24 mmol/L 22-29 CALCIUM 9.2 mg/dL 8.4-10.2 MAGNESIUM 1.9 mg/dL 1.6-2.6 ANION GAP 8 mmol/L 5-15 .CREAT EGFR(CKD-EPI) >90 >60 Jun 24, 2024 09:50 AM [facility] CBC Specimen Type: BLOOD Comment: Specimen received in Lab at: 0948 Ordering Provider: JEVON ZAZUETA Report Released Date/Time: Jun 23, 2024 06:07 PM Reporting Lab: [facility] [address] Performing Lab: [facility] [address] WBC 15.5 H 4.0-11.0 RBC 4.93 4.60-6.20 HGB 15.2 g/dL 13.5-17.9 HCT 46.5 41.0-54.0 MCV 94.3 fL 80.0-100.0 MCH 30.8 pg 27.0-33.0 MCHC 32.7 g/dL 32.0-37.5 PLT 223 150-400 MPV 11.4 fL 9.1-13.0 RDW 13.9 11.5-14.5 Jun 23, 2024 07:52 AM [facility] COMPREHENSIVE METABOLIC PANEL+MG Specimen Type: PLASMA No comment entered. Ordering Provider: JEVON ZAZUETA Report Released Date/Time: Jun 22, 2024 05:51 PM Reporting Lab: [facility] [address] Performing Lab: [facility] [address] CREATININE 0.7 mg/dL 0.7-1.2 UREA NITROGEN 16 [...] >90 >60 Jun 23, 2024 07:52 AM [facility] CBC & DIFF Specimen Type: BLOOD Comment: Automated Differential Performed Ordering Provider: JEVON ZAZUETA Report Released Date/Time: Jun 22, 2024 05:51 PM Reporting Lab: [facility] [address] Performing Lab: [facility] [address] WBC 14.9 H 4.0-11.0 RBC 5.09 4.60-6.20 [...] 0.1 0.0-0.1 Jun 22, 2024 06:10 PM [facility] CBC Specimen Type: BLOOD No comment entered. Ordering Provider: JEVON ZAZUETA Report Released Date/Time: Jun 22, 2024 05:51 PM Reporting Lab: [facility] [address] Performing Lab: [facility] [address] WBC 16.9 H 4.0-11.0 RBC 5.28 4.60-6.20 HGB 16.9 g/dL 13.5-17.9 HCT 50.4 41.0-54.0 MCV 95.5 fL 80.0-100.0 MCH 32.0 pg 27.0-33.0 MCHC 33.5 g/dL 32.0-37.5 PLT 223 150-400 MPV 10.9 fL 9.1-13.0 RDW 14.0 11.5-14.5 Jun 22, 2024 06:10 PM [facility] COMPREHENSIVE METABOLIC PANEL+MG Specimen Type: PLASMA No comment entered. Ordering Provider: JEVON ZAZUETA Report Released Date/Time: Jun 22, 2024 05:51 PM Reporting Lab: [facility] [address] Performing Lab: [facility] [address] CREATININE 0.7 mg/dL 0.7-1.2 UREA NITROGEN 17 [...] >90 >60 Jun 21, 2024 06:48 PM [facility] URINALYSIS Specimen Type: URINE No comment entered. Ordering Provider: DELIA MARTINEZ Report Released Date/Time: Jun 21, 2024 05:45 PM Reporting Lab: [facility] [address] Performing Lab: [facility] [address] URINE COLOR YELLOW SPECIFIC GRAVITY 1.041 H [...] 500 NEGATIVE Jun 21, 2024 05:34 PM [facility] POC CREATININE Specimen Type: BLOOD No comment entered. Ordering Provider: DELIA MARTINEZ Report Released Date/Time: Jun 21, 2024 06:07 PM Reporting Lab: [facility] [address] Performing Lab: [facility] [address] POC CREATININE 1.1 mg/dL 0.6-1.3 Jun 21, 2024 05:30 PM [facility] POC ABG/LACTATE Specimen Type: VENOUS BLOOD No comment entered. Ordering Provider: DELIA MARTINEZ Report Released Date/Time: Jun 21, 2024 06:07 PM Reporting Lab: [facility] [address] Performing Lab: [facility] [address] POC PH 7.470 H 7.31-7.41 POC PCO2 31.2 mm[Hg] L 41.00-51 .0 0 POC PO2 46 mm[Hg] H 35.0-40.0 POC TCO2 24 mmol/L 24.0-29.0 POC HCO3 22.7 mmol/L L 23.0-28.0 POC BE ECT -1 mmol/L POC SO2 85 H 70-75 POC LACTATE 1.85 mmol/L 0.90-1.70 Jun 21, 2024 05:24 PM [facility] PROTHROMBIN TIME/INR Specimen Type: PLASMA No comment entered. Ordering Provider: DELIA MARTINEZ Report Released Date/Time: Jun 21, 2024 05:30 PM Reporting Lab: [facility] [address] Performing Lab: [facility] [address] .INR 1.2 H 0.8-1.1 .PT 13.9 s H 9.4-12.5 Jun 21, 2024 05:24 PM [facility] LIPASE Specimen Type: PLASMA No comment entered. Ordering Provider: DELIA MARTINEZ Report Released Date/Time: Jun 21, 2024 05:30 PM Reporting Lab: [facility] [address] Performing Lab: [facility] [address] LIPASE 32 U/L <60 Jun 21, 2024 05:24 PM [facility] EXTRA GOLD GEL TUBE Specimen Type: SERUM No comment entered. Ordering Provider: DELIA MARTINEZ Report Released Date/Time: Jun 21, 2024 05:41 PM Reporting Lab: [facility] [address] Performing Lab: [facility] [address] EXTRA GOLD GEL TUBE RECEIVED Jun 21, 2024 05:24 PM [facility] COMPREHENSIVE METABOLIC PANEL+MG Specimen Type: PLASMA No comment entered. Ordering Provider: DELIA MARTINEZ Report Released Date/Time: Jun 21, 2024 05:30 PM Reporting Lab: [facility] [address] Performing Lab: [facility] [address] CREATININE 0.9 mg/dL 0.7-1.2 UREA NITROGEN 29 [...] mg/dL <0.5 Jun 21, 2024 05:24 PM [facility] CBC & DIFF Specimen Type: BLOOD Comment: Manual Differential Performed Ordering Provider: DELIA MARTINEZ Report Released Date/Time: Jun 21, 2024 05:30 PM Reporting Lab: [facility] [address] Performing Lab: [facility] [id number] WBC 21.3 H 4.0-11.0 RBC 5.48 4.60-6.20 [...] 15, 2024 08:30 AM VA-TOBACCO FORMER USER [facility] Tobacco Use History This section includes a history of the smoking, or tobacco-related health factors, that were collected on or before the date of the Encounter. The data comes from the [place] facility where the Encounter took place. Date/Time Smoking Status/Tobacco Use Comment F acility May 15, 2024 08:30 AM VA-TOBACCO QUIT 15 YRS OR MORE [facility] May 06, 2023 11:30 AM VA-TOBACCO FORMER USER [facility] May 06, 2023 11:30 AM VA-TOBACCO QUIT 15 YRS OR MORE [facility] Jun 04, 2022 09:00 AM VA-TOBACCO FORMER USER [facility] Jun 04, 2022 09:00 AM VA-TOBACCO QUIT 15 YRS OR MORE [facility] Jul 10, 2021 08:00 AM VA-TOBACCO FORMER USER [facility] Jul 10, 2021 08:00 AM VA-TOBACCO QUIT 5 TO < 15 YRS [facility] May 23, 2020 08:30 AM VA-TOBACCO FORMER USER [facility] May 23, 2020 08:30 AM VA-TOBACCO QUIT 5 TO < 15 YRS [facility] Mar 20, 2019 04:03 PM VA-TOBACCO FORMER USER [facility] Mar 20, 2019 04:03 PM VA-TOBACCO QUIT 5 TO < 15 YRS [facility] Mar 21, 2018 08:13 AM FORMER TOBACCO USER 7Y OR GREATE R [facility] Feb 24, 2017 09:24 AM FORMER TOBACCO USER 7Y OR GREATE R [facility] January 07, 2016 08:01 AM FORMER TOBACCO USE >1Y <7Y [facility] Feb 03, 2015 07:58 AM FORMER TOBACCO USE <1Y [facility] Feb 26, 2014 08:41 AM CURRENT TOBACCO USER [facility] May 13, 2011 01:45 PM CURRENT TOBACCO USER [facility] Advance Directives: All historical [...] VIEWS PA A ND LAT: FLACA WEAVER [id number] -1950 M Exm Date: JUL 08, 2024@10:09 Req Phys: KATELYNN PERSON Pat Loc: 2KG/07-08-2024@11:49 Img Loc: MAIN X-RAY Service: [place] [address] (Case 24 COMPLETE) CHEST 2 VIEWS PA AND LAT (RAD Detailed) CPT:96303 Reason for Study: Uptrending WBC, POD 5 [...] 08, 2024 Date Verified: JUL 08, 2024 Fine Artist E-Sig: Report: CHEST 2 VIEWS PA AND [...] cardiopulmonary disease. READING PHYSICIAN: Sarbjit Vaughn M.D. -[id number] 07/08/2024 12:46 EST [facility] National Teleradiology Program [phone] (For Medical Practitioner Use Only) Attention Patients / Veterans: If you have questions or concerns about these test results, please contact your ordering provider or primary care team. Primary Interpreting Staff: RADIOLOGY,OUTSIDE SERVICE, Staff Physician / RADIOLOGY,OUTSIDE SERVICE [facility] Jul 08, 2024 10:[address] (AP) ABDOMEN/PE LVIS W CONTRAST: FLACA WEAVER [id number] -1950 M Exm Date: JUL 08, 2024@10:00 Req Phys: KATELYNN PERSON Pat Loc: [facility]/07-08-2024@12:07 Img Loc: CT IMAGING Service: [place] [address] (Case 22 COMPLETE) CT (AP) ABDOMEN/PELVIS W CONTRAST(CT Detailed) CPT:56808 Contrast Media : Non-ionic Iodinated Reason for [...] PLASMA .CREAT EGFR(CKD-E >90 Ref: >=60 Allergies: ([place] only) TERAZOSIN (Mar 13, 2015) Report Status: Verified Date Reported: JUL 08, 2024 Date Verified: JUL 08, 2024 Fine Artist E-Sig: Report: CT (AP) ABDOMEN/PELVIS W CONTRAST [...] as noted above READING PHYSICIAN: Celestino Blanc -[id number] 07/08/2024 13:04 EST [facility] National CommonKeyradiology Program [phone] (For Medical Practitioner Use Only) Attention Patients / Veterans: If you have questions or concerns about these test results, please contact your ordering provider or primary care team. Primary Interpreting Staff: RADIOLOGY,OUTSIDE SERVICE, Staff Physician / RADIOLOGY,OUTSIDE SERVICE [facility] Jun 22, 2024 11:49 AM ABSCESS DRAIN PLAC EMENT PERITONEAL (P): FLACA WEAVER [id number] -1950 M Exm Date: JUN 22, 2024@11:49 Req Phys: ANGELA HOLDEN Pat Loc: [facility]/06-22-2024@17:14 Img Loc: INTERVENTIONAL RADIOLOGY Service: [place] [address] (Case [id number] COMPLETE) IR PERITONEAL/RETROPERITONEAL PER(ANI Detailed) CPT:65846 Reason for Study: diverticulitis with abscess (Case [id number] COMPLETE) IR MOD SEDATION 10-22 MIN (ANI Detailed) CPT:13995 Clinical History: [place] IS NOT under investigation for COVID-19 or is COVID-19 negative 73 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 please place abscess drain. Contact number for responsible provider who can be reached for any questions or notifications of critical findings: [phone] n/a LAST CREATININE 0.9 (06/21/24) Report Status: Verified Date Reported: JUN 22, 2024 Date Verified: JUN 22, 2024 Fine Artist E-Sig:/ES/LISA PENDLETON MD Report: PROCEDURES: Placement of [...] obtained. A pre-procedural Time-Out was performed per [facility] policy. The patient was placed in the supine position on the CT table. Preprocedural scan performed. The suprapubic region/lower abdominal wall was sterilely prepped and draped in the usual fashion.1% lidocaine without epinephrine was used for local anesthesia. Using real-time CT fluoroscopy, a 5 [employer] centesis catheter was advanced into the collection in the left pelvis. A wire was coiled in the collection. The tract into the collection was dilated to accommodate the 12 [place] locking pigtail drainage catheter. There was return [...] Primary Interpreting Staff: LISA PENDLETON MD, RADIOLOGIST (Fine Artist) /JRT LISA PENDLETON [facility] Jun 22, 2024 11:[address] NEEDLE PLACEMEN T (P): FLACA WEAVER [id number] -1950 M Exm Date: JUN 22, 2024@11:48 Req Phys: ANGELA HOLDEN [facility] Loc: [facility]/06-22-2024@17:14 Img Loc: CT IMAGING Service: [place] [address] (Case [id number] COMPLETE) CT SCAN FOR NEEDLE PLACEMENT (CT Detailed) CPT:87995 Reason for Study: l pelvic abscess drain Clinical History: Report Status: Verified Date Reported: JUN 22, 2024 Date Verified: JUN 22, 2024 Fine Artist E-Sig:/ES/LISA PENDLETON MD Report: PROCEDURES: Placement of [...] obtained. A pre-procedural Time-Out was performed per [facility] policy. The patient was placed in the supine position on the CT table. Preprocedural scan performed. The suprapubic region/lower abdominal wall was sterilely prepped and draped in the usual fashion.1% lidocaine without epinephrine was used for local anesthesia. Using real-time CT fluoroscopy, a 5 [employer] centesis catheter was advanced into the collection in the left pelvis. A wire was coiled in the collection. The tract into the collection was dilated to accommodate the 12 [place] locking pigtail drainage catheter. There was return [...] Primary Interpreting Staff: LISA PENDLETON MD, RADIOLOGIST (Fine Artist) /JRT LISA PENDLETON [facility] Jun 21, 2024 06:[address] (AP) ABDOMEN/PE LVIS (P): MEGFLACA YAMIL [id number] -1950 Ex Date: JUN 21, 2024@18:09 Req Phys: DELIA MARTINEZ Loc: [facility] EM[facility]GENCY [facility]PT WALK-IN (Re Img Loc: CT IMAGING Service: [place] [address] (Case [id number] COMPLETE) CT (AP) ABDOMEN/PELVIS W CONTRAST(CT Detailed) CPT:61430 Contrast Media : Non-ionic Iodinated Reason for [...] PLASMA .CREAT EGFR(CKD-E >90 Ref: >=60 Allergies: ([place] only) TERAZOSIN (Mar 13, 2015) Defer to [...] 21, 2024 Date Verified: JUN 21, 2024 Fine Artist E-Sig:/ES/CARLOS A CUNNINGHAM DO Report: EXAMINATION: CT [...] Interpreting Staff: CARLOS A CUNNINGHAM DO, RADIOLOGIST (Fine Artist) /CARLOS A ROWELL [facility] Pathology Reports: +/- 30 days [...] COSIGNER: URGENCY: STATUS: COMPLETED $APHDR Reporting Lab: [facility] [CLIA# [id number]] [place] [address] - - - - - - - [...] - - - PATHOLOGY REPORT Accession No. [id number] - - - - - - - [...] - PATHOLOGY REPORT Accession No. [id number] - - - - - - - [...] Second circumferential surgical margin, en face; E-F: Global Logistics Manager diverticula; G: Global Logistics Manager section of mesentery; H: Random sales representative aircraft section of additional adipose tissue fragment. SS. [...] Performing Laboratory: Surgical Pathology Report Performed By: [facility] [CLIA# [id number]] [place] [address] $FTR - - - - - - [...] - - FLACA WEAVER STANDARD FORM 515 ID:[id number] SEX:M :1950 AGE: 73 LOC:48829 ADM:Jun DX:DIVERTICULITIS PCP: Jatinder Cabrera /alexi/ EDUARDO PALOMARES MD STAFF PATHOLOGIST Signed: 07/06/2024 10:40 EDUARDO PALOMARES [facility] Jun 22, 2024 01:15 PM LR MICROBIOLOGY RE PORT: Reporting Lab: [facility] [CLIA# [id number]] [place] [address] Accession [UID]: [id number] [[id number]] Received: Jun 22, 2024@13:38 Collection sample: FLUID Collection date: Jun 22, 2024 13:15 Provider: ANGELA HOLDEN Comment on specimen: LLQ ABSCESS, RECEIVED IN ANAEROBIC TRANSPORT VIAL Test(s) ordered: GRAM STAIN.................... completed: Jun 22, 2024 15:03 CULTURE & SUSCEPTIBILITY...... completed: Jun 25, 2024 * BACTERIOLOGY FINAL REPORT => Jun 25, 2024 10:56 TECH CODE: [id number] GRAM STAIN: DIRECT SMEAR of specimen before [...] -=--=--=--=--=--=--=-- Performing Laboratory: Bacteriology Report Performed By: [facility] [CLIA# [id number]] [place] [address] [facility] Jun 22, 2024 01:15 PM LR MICROBIOLOGY RE PORT: Reporting Lab: [facility] [CLIA# [id number]] [place] [address] Accession [UID]: [id number] [[id number]] Received: Jun 22, 2024@13:38 Collection sample: FLUID Collection date: Jun 22, 2024 13:15 Provider: ANGELA HOLDEN Comment on specimen: LLQ ABSCESS, RECEIVED IN ANAEROBIC TRANSPORT VIAL Test(s) ordered: ANAEROBIC CULTURE............. completed: Jun 28, 2024 * BACTERIOLOGY FINAL REPORT => Jun 28, 2024 10:08 TECH CODE: [id number] CULTURE RESULTS: HEAVY GROWTH MIXED ANAEROBES Comment: including the followin+ Bacteroides fragilis 4+ Bacteroides vulgatus 4+ Clostridium innocuum Beta-lactamase negative 4+ Bacteroides caccae 4+ Parvimonas micra 4+ Bacteroides uniformis 4+ Gemella morbillorum 4+ anaerobic small, Gram Positive Rods 4+ Bacteroides thetaiotaomicron Standard workup is now complete. Bacteriology Remark(s): THIS REPORT IS FINAL =--=--=--=--=--=--=--=--=--= --=--=--=--=--=--=--=--=--=- -=--=--=--=--=--=--=-- Performing Laboratory: Bacteriology Report Performed By: [facility] [CLIA# [id number]] [place] [address] [facility] Jun 21, 2024 06:12 PM LR MICROBIOLOGY RE PORT: Reporting Lab: [facility] [IA# [id number]] [place] [address] Accession [UID]: [id number] [[id number]] Received: Jun 21, 2024@18:12 Collection sample: BLOOD [...] -=--=--=--=--=--=--=-- Performing Laboratory: Bacteriology Report Performed By: [facility] [IA# [id number]] [place] [address] [facility] Jun 21, 2024 06:11 PM LR MICROBIOLOGY RE PORT: Reporting Lab: [facility] [IA# [id number]] [place] [address] Accession [UID]: [id number] [[id number]] Received: Jun 21, 2024@18:11 Collection sample: BLOOD [...] -=--=--=--=--=--=--=-- Performing Laboratory: Bacteriology Report Performed By: [facility] [CLIA# [id number]] [place] [address] [facility]
--- OUTSIDE RECORDS SUMMARY | 2024-07-16 07:23 | XMS_ITS | Encounter Summary ---
Author Name [facility] Organization [facility] [place] Address [address] [place] [address] Care Team Providers Care Linux Architect Name Role Phone JATINDER CABRERA Primary [...] PART A Sep 29, 2016 PART A [phone] JUDY WEAVER PATIENT Selected Encounter This section includes the information on record at [place] for the Encounter. Date/Time Encounter Type Encounter Description Reason Pro vider Source Jul 10, 2024 01:46 PM Outpatient Encounter PRIMARY CARE/MEDICINE IHE Encounter Template Text not used by [place] [...] 2024 08:15 AM AMBULATORY - NONE [facility] Active, Pending, and Scheduled Orders [...] Order TYPE & SCREEN - LAB BLOOD [facility] Jul 03, 2024 12:00 AM Laboratory - Blood Bank Order TYPE & SCREEN - LAB BLOOD [facility] Jul 16, 2024 12:00 AM Laboratory - [...] PM Reporting Lab: [facility] [address] Performing Lab: [facility] [address] PHOSPHORUS 3.0 mg/dL 2.3-4.3 Jul 10, 2024 07:16 AM [facility] BASIC METABOLIC PANEL+MG Specimen Type: PLASMA No comment entered. Ordering Provider: JUANCARLOS ECHOLS S Report Released Date/Time: Jul 09, 2024 12:23 PM Reporting Lab: [facility] [address] Performing Lab: [facility] [address] CREATININE 0.7 mg/dL 0.7-1.2 UREA NITROGEN 27 [...] PM Reporting Lab: [facility] [address] Performing Lab: [facility] [address] WBC 18.8 H 4.0-11.0 RBC 5.08 4.60-6.20 [...] PM Reporting Lab: [facility] [address] Performing Lab: [facility] [address] WBC 15.3 H 4.0-11.0 RBC 4.91 4.60-6.20 [...] AM Reporting Lab: [facility] [address] Performing Lab: [facility] [address] URINE COLOR YELLOW SPECIFIC GRAVITY >1.050 H [...] PM Reporting Lab: [facility] [address] Performing Lab: [facility] [address] WBC 17.5 H 4.0-11.0 RBC 4.88 4.60-6.20 [...] PM Reporting Lab: [facility] [address] Performing Lab: [facility] [address] PHOSPHORUS 2.6 mg/dL 2.3-4.3 Jul 08, 2024 09:54 AM [facility] BASIC METABOLIC PANEL+MG Specimen Type: PLASMA Comment: Specimen received in Lab at: 0952 Ordering Provider: JUANCARLOS ECHOLS Report Released Date/Time: Jul 07, 2024 04:49 PM Reporting Lab: [facility] [address] Performing Lab: [facility] [address] CREATININE 0.9 mg/dL 0.7-1.2 UREA NITROGEN 26 [...] PM Reporting Lab: [facility] [address] Performing Lab: [facility] [address] C DIFF TOX B GENE PCR NEGATIVE Negative Jul 07, 2024 07:41 AM [facility] PHOSPHORUS Specimen Type: PLASMA No comment entered. Ordering Provider: JEVON ZAZUETA Report Released Date/Time: Jul 06, 2024 03:44 PM Reporting Lab: [facility] [address] Performing Lab: [facility] [address] PHOSPHORUS 3.1 mg/dL 2.3-4.3 Jul 07, 2024 07:41 AM [facility] BASIC METABOLIC PANEL+MG Specimen Type: PLASMA No comment entered. Ordering Provider: JEVON ZAZUETA Report Released Date/Time: Jul 06, 2024 03:44 PM Reporting Lab: [facility] [address] Performing Lab: [facility] [address] CREATININE 0.9 mg/dL 0.7-1.2 UREA NITROGEN 20 [...] PM Reporting Lab: [facility] [address] Performing Lab: [facility] [address] WBC 21.2 H 4.0-11.0 RBC 5.09 4.60-6.20 [...] PM Reporting Lab: [facility] [address] Performing Lab: [facility] [address] WBC 18.0 H 4.0-11.0 RBC 4.83 4.60-6.20 [...] PM Reporting Lab: [facility] [address] Performing Lab: [facility] [address] PHOSPHORUS 3.6 mg/dL 2.3-4.3 Jul 06, 2024 07:21 AM [facility] BASIC METABOLIC PANEL+MG Specimen Type: PLASMA No comment entered. Ordering Provider: JEVON ZAZUETA Report Released Date/Time: Jul 05, 2024 01:22 PM Reporting Lab: [facility] [address] Performing Lab: [facility] [address] CREATININE 0.7 mg/dL 0.7-1.2 UREA NITROGEN 12 [...] AM Reporting Lab: [facility] [address] Performing Lab: [facility] [address] MAGNESIUM 2.0 mg/dL 1.6-2.6 Jul 05, 2024 07:17 AM [facility] PHOSPHORUS Specimen Type: PLASMA No comment entered. Ordering Provider: JUANCARLOS ECHOLS S Report Released Date/Time: Jul 04, 2024 09:39 AM Reporting Lab: [facility] [address] Performing Lab: [facility] [address] PHOSPHORUS 2.0 mg/dL L 2.3-4.3 Jul 05, 2024 07:17 AM [facility] BASIC METABOLIC PANEL+MG Specimen Type: PLASMA No comment entered. Ordering Provider: JUANCARLOS ECHOLS S Report Released Date/Time: Jul 04, 2024 09:39 AM Reporting Lab: [facility] [address] Performing Lab: [facility] [address] CREATININE 0.7 mg/dL 0.7-1.2 UREA NITROGEN 12 [...] AM Reporting Lab: [facility] [address] Performing Lab: [facility] [address] WBC 18.3 H 4.0-11.0 RBC 4.49 L [...] PM Reporting Lab: [facility] [address] Performing Lab: [facility] [address] CREATININE 0.7 mg/dL 0.7-1.2 UREA NITROGEN 16 mg/dL 8-26 GLUCOSE 129 mg/dL H 70-100 SODIUM 137 mmol/L 136-145 POTASSIUM 3.7 mmol/L 3.5-5.1 CHLORIDE 107 mmol/L 98-107 CO2 22 mmol/L 22-29 CALCIUM 9.0 mg/dL 8.4-10.2 MAGNESIUM 1.9 mg/dL 1.6-2.6 ANION GAP 8 mmol/L 5-15 .CREAT EGFR(CKD-EPI) >90 >60 Jul 04, 2024 07:17 AM [facility] PHOSPHORUS Specimen Type: PLASMA No comment entered. Ordering Provider: GABINO CAMERON Report Released Date/Time: Jul 03, 2024 06:31 PM Reporting Lab: [facility] [address] Performing Lab: [facility] [address] PHOSPHORUS 2.8 mg/dL 2.3-4.3 Jul 04, 2024 07:16 AM [facility] CBC Specimen Type: BLOOD No comment entered. Ordering Provider: GABINO CAMERON Report Released Date/Time: Jul 03, 2024 06:31 PM Reporting Lab: [facility] [address] Performing Lab: [facility] [address] WBC 20.6 H 4.0-11.0 RBC 4.63 4.60-6.20 [...] PM Reporting Lab: [facility] [address] Performing Lab: [facility] [address] WBC 20.6 H 4.0-11.0 RBC 4.63 4.60-6.20 [...] PM Reporting Lab: [facility] [address] Performing Lab: [facility] [address] BNP 292 pg/mL H <99 Jul 03, 2024 10:32 PM [facility] FINGERSTICK GLUCOSE Specimen Type: BLOOD Comment: Save Result Nurse Notified Ordering Provider: KATELYNN PERSON Report Released Date/Time: Jul 03, 2024 10:50 PM Reporting Lab: [facility] [address] Performing Lab: [facility] [address] FINGERSTICK GLUCOSE 126 mg/dL H 70-100 Jul 03, 2024 05:33 PM [facility] FINGERSTICK GLUCOSE Specimen Type: BLOOD Comment: Save Result Nurse Notified Ordering Provider: KATELYNN PERSON Report Released Date/Time: Jul 03, 2024 05:46 PM Reporting Lab: [facility] [address] Performing Lab: [facility] [address] FINGERSTICK GLUCOSE 141 mg/dL H 70-100 Jul 03, 2024 02:31 PM [facility] POC ABG/ELECTROLYTES Specimen Type: ARTERIAL BLOOD Comment: FIO2 = 97% Patient Temp: 36.0 C Sample Type = ARTERIAL Ordering Provider: MAZIN ARREDONDO Report Released Date/Time: Jul 03, 2024 01:48 PM Reporting Lab: [facility] [address] Performing Lab: [facility] [address] POC PH 7.387 7.35-7.45 POC PCO2 34.4 [...] PM Reporting Lab: [facility] [address] Performing Lab: [facility] [address] POC PH 7.280 L 7.35-7.45 POC PCO2 [...] PM Reporting Lab: [facility] [address] Performing Lab: [facility] [address] URINE COLOR YELLOW SPECIFIC GRAVITY 1.031 1.003-1.03 [...] PM Reporting Lab: [facility] [address] Performing Lab: [facility] [address] WBC 15.8 H 4.0-11.0 RBC 5.11 4.60-6.20 [...] PM Reporting Lab: [facility] [address] Performing Lab: [facility] [address] CREATININE 0.8 mg/dL 0.7-1.2 UREA NITROGEN 13 [...] PM Reporting Lab: [facility] [address] Performing Lab: [facility] [address] WBC 15.5 H 4.0-11.0 RBC 4.93 4.60-6.20 HGB 15.2 g/dL 13.5-17.9 HCT 46.5 41.0-54.0 MCV 94.3 fL 80.0-100.0 MCH 30.8 pg 27.0-33.0 MCHC 32.7 g/dL 32.0-37.5 PLT 223 150-400 MPV 11.4 fL 9.1-13.0 RDW 13.9 11.5-14.5 Jun 23, 2024 07:52 AM [facility] COMPREHENSIVE METABOLIC PANEL+MG Specimen Type: PLASMA No comment entered. Ordering Provider: JEOVN ZAZUETA Report Released Date/Time: Jun 22, 2024 05:51 PM Reporting Lab: [facility] [address] Performing Lab: [facility] [address] CREATININE 0.7 mg/dL 0.7-1.2 UREA NITROGEN 16 [...] PM Reporting Lab: [facility] [address] Performing Lab: [facility] [address] WBC 14.9 H 4.0-11.0 RBC 5.09 4.60-6.20 [...] PM Reporting Lab: [facility] [address] Performing Lab: [facility] [address] WBC 16.9 H 4.0-11.0 RBC 5.28 4.60-6.20 [...] PM Reporting Lab: [facility] [address] Performing Lab: [facility] [address] CREATININE 0.7 mg/dL 0.7-1.2 UREA NITROGEN 17 [...] PM Reporting Lab: [facility] [address] Performing Lab: [facility] [address] URINE COLOR YELLOW SPECIFIC GRAVITY 1.041 H [...] PM Reporting Lab: [facility] [address] Performing Lab: [facility] [address] POC CREATININE 1.1 mg/dL 0.6-1.3 Jun 21, 2024 05:30 PM [facility] POC ABG/LACTATE Specimen Type: VENOUS BLOOD No comment entered. Ordering Provider: DELIA MARTINEZ Report Released Date/Time: Jun 21, 2024 06:07 PM Reporting Lab: [facility] [address] Performing Lab: [facility] [address] POC PH 7.470 H 7.31-7.41 POC PCO2 [...] PM Reporting Lab: [facility] [address] Performing Lab: [facility] [address] .INR 1.2 H 0.8-1.1 .PT 13.9 s H 9.4-12.5 Jun 21, 2024 05:24 PM [facility] EXTRA GOLD GEL TUBE Specimen Type: SERUM No comment entered. Ordering Provider: DELIA MARTINEZ Report Released Date/Time: Jun 21, 2024 05:41 PM Reporting Lab: [facility] [address] Performing Lab: [facility] [address] EXTRA GOLD GEL TUBE RECEIVED Jun 21, 2024 05:24 PM [facility] LIPASE Specimen Type: PLASMA No comment entered. Ordering Provider: DELIA MARTINEZ Report Released Date/Time: Jun 21, 2024 05:30 PM Reporting Lab: [facility] [address] Performing Lab: [facility] [address] LIPASE 32 U/L <60 Jun 21, 2024 05:24 PM [facility] COMPREHENSIVE METABOLIC PANEL+MG Specimen Type: PLASMA No comment entered. Ordering Provider: DELIA MARTINEZ Report Released Date/Time: Jun 21, 2024 05:30 PM Reporting Lab: [facility] [address] Performing Lab: [facility] [address] CREATININE 0.9 mg/dL 0.7-1.2 UREA NITROGEN 29 [...] PM Reporting Lab: [facility] [address] Performing Lab: [facility] [address] WBC 21.3 H 4.0-11.0 RBC 5.48 4.60-6.20 [...] this document. The data comes from all [place] facilities. Date Advance Directives Provider Source Mar [...] VIEWS PA A ND LAT: FLACA WEAVER [id number] -1950 M Exm Date: JUL 08, 2024@10:09 Req Phys: KATELYNN EPRSON Pat Loc: [facility]/07-08-2024@11:49 Img Loc: MAIN X-RAY Service: [place] [address] (Case 24 COMPLETE) CHEST 2 VIEWS PA AND LAT (RAD Detailed) CPT:06616 Reason for Study: Uptrending WBC, POD 5 Clinical History: [facility] IS NOT under investigation for COVID-19 or is COVID-19 negative POD 5, work up for uptrending wbc Responsible provider name and phone number to notify for critical findings if other than user placing the order and pager listed below: User placing orders pager: Katelynn Person LAST CREATININE 0.9 (07/07/24) Report Status: Verified Date Reported: JUL 08, 2024 Date Verified: JUL 08, 2024 Mobile Web Application Developer E-Sig: Report: CHEST 2 VIEWS PA AND LAT HISTORY: Uptrending WBC, POD 5 COMPARISON: CT chest 11/12/2022 TECHNIQUE: Frontal and lateral views of the chest, submitted to the [place] National Teleradiology Program (NTP) for interpretation. FINDINGS: Lungs: Clear. No focal consolidation. No pulmonary edema. Pleura: No pleural effusion or pneumothorax. Mediastinum: Normal size and contour. Bones: Unremarkable. Impression: No acute cardiopulmonary disease. READING PHYSICIAN: Sarbjit Vaughn M.D. -[phone] 07/08/2024 12:46 EST [facility] National Teleradiology Program [phone] (For Medical Practitioner Use Only) Attention Patients / Veterans: If you have questions or concerns about these test results, please contact your ordering provider or primary care team. Primary Interpreting Staff: RADIOLOGY,OUTSIDE SERVICE, Staff Physician / RADIOLOGY,OUTSIDE SERVICE [facility] Jul 08, 2024 10:[address] (AP) ABDOMEN/PE LVIS W CONTRAST: FLACA WEAVER [id number] -1950 M Exm Date: JUL 08, 2024@10:00 Req Phys: KATELYNN PERSON Loc: 2KG/07-08-2024@12:07 Img Loc: CT IMAGING Service: [place] [address] (Case 22 COMPLETE) CT (AP) ABDOMEN/PELVIS W CONTRAST(CT Detailed) CPT:88831 Contrast Media : Non-ionic Iodinated Reason for [...] PLASMA .CREAT EGFR(CKD-E >90 Ref: >=60 Allergies: ([place] only) TERAZOSIN (Mar 13, 2015) Report Status: Verified Date Reported: JUL 08, 2024 Date Verified: JUL 08, 2024 Mobile Web Application Developer E-Sig: Report: CT (AP) ABDOMEN/PELVIS W CONTRAST HISTORY: POD 5, Uptrending WBC - Concern for Abscess/other infection COMPARISON: June 21, 2024 TECHNIQUE: CT abdomen and pelvis was performed after intravenous contrast. Axial, sagittal and coronal reformatted images. The study was performed at the local [place] facility and images were sent to the [place] National Teleradiology Program (NTP) for interpretation. Number [...] as noted above READING PHYSICIAN: Celestino Blanc -[phone] 07/08/2024 13:04 EST [facility] National RAD Technologiesradiology Program [phone] (For Medical Practitioner Use Only) Attention Patients / Veterans: If you have questions or concerns about these test results, please contact your ordering provider or primary care team. Primary Interpreting Staff: RADIOLOGY,OUTSIDE SERVICE, Staff Physician / RADIOLOGY,OUTSIDE SERVICE [facility] Jun 22, 2024 11:49 AM ABSCESS DRAIN PLAC EMENT PERITONEAL (P): FLACA WEAVER [id number] -1950 M Exm Date: JUN 22, 2024@11:49 Req Phys: ANGELA HOLDEN [facility] Loc: [facility]/06-22-2024@17:14 Img Loc: INTERVENTIONAL RADIOLOGY Service: [place] [address] (Case [id number] COMPLETE) IR PERITONEAL/RETROPERITONEAL PER(ANI Detailed) CPT:29911 Reason for Study: diverticulitis with abscess (Case 3570 COMPLETE) IR MOD SEDATION 10-22 MIN (ANI Detailed) CPT:90482 Clinical History: IS NOT under investigation for COVID-19 or is COVID-19 negative 73 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 please place abscess drain. Contact number for responsible provider who can be reached for any questions or notifications of critical findings: [phone] n/a LAST CREATININE 0.9 (06/21/24) Report Status: Verified Date Reported: JUN 22, 2024 Date Verified: JUN 22, 2024 Mobile Web Application Developer E-Sig:/ES/LISA PENDLETON MD Report: PROCEDURES: Placement [...] obtained. A pre-procedural Time-Out was performed per [facility] policy. The patient was placed in the supine position on the CT table. Preprocedural scan performed. The suprapubic region/lower abdominal wall was sterilely prepped and draped in the usual fashion.1% lidocaine without epinephrine was used for local anesthesia. Using real-time CT fluoroscopy, a 5 [place] Yueh centesis catheter was advanced into the collection in the left pelvis. A wire was coiled in the collection. The tract into the collection was dilated to accommodate the 12 [place] locking pigtail drainage catheter. There was return [...] Primary Interpreting Staff: LISA PENDLETON MD, RADIOLOGIST (Mobile Web Application Developer) /JRT LISA PENDLETON [facility] Jun 22, 2024 11:[address] NEEDLE PLACEMEN T (P): FLACA WEAVER [id number] -1950 M Exm Date: JUN 22, 2024@11:48 Req Phys: ANGELA HOLDEN [facility] Loc: [facility]/06-22-2024@17:14 Img Loc: CT IMAGING Service: [place] [address] (Case [id number] COMPLETE) CT SCAN FOR NEEDLE PLACEMENT (CT Detailed) CPT:44859 Reason for Study: l pelvic abscess drain Clinical History: Report Status: Verified Date Reported: JUN 22, 2024 Date Verified: JUN 22, 2024 Mobile Web Application Developer E-Sig:/ES/LISA PENDLETON MD Report: PROCEDURES: Placement [...] obtained. A pre-procedural Time-Out was performed per [facility] policy. The patient was placed in the supine position on the CT table. Preprocedural scan performed. The suprapubic region/lower abdominal wall was sterilely prepped and draped in the usual fashion.1% lidocaine without epinephrine was used for local anesthesia. Using real-time CT fluoroscopy, a 5 [place] Basecampesis catheter was advanced into the collection in the left pelvis. A wire was coiled in the collection. The tract into the collection was dilated to accommodate the 12 [place] locking pigtail drainage catheter. There was return [...] Primary Interpreting Staff: LISA PENDLETON MD, RADIOLOGIST (Mobile Web Application Developer) /JRT LISA PENDLETON [facility] Jun 21, 2024 06:[address] (AP) ABDOMEN/PE LVIS (P): MEGFLACA YAMIL [id number] -1950 Ex Date: JUN 21, 2024@18:09 Req Phys: DELIA MARTINEZ Loc: [facility] EMERGENCY DEPT WALK-IN (Re Img Loc: CT IMAGING Service: [place] [address] (Case [id number] COMPLETE) CT (AP) ABDOMEN/PELVIS W CONTRAST(CT Detailed) CPT:83521 Contrast Media : Non-ionic Iodinated Reason for [...] PLASMA .CREAT EGFR(CKD-E >90 Ref: >=60 Allergies: ([place] only) TERAZOSIN (Mar 13, 2015) Defer to [...] 21, 2024 Date Verified: JUN 21, 2024 Mobile Web Application Developer E-Sig:/ES/CARLOS A CUNNINGHAM DO Report: EXAMINATION: [...] Interpreting Staff: CARLOS A CUNNINGHAM DO, RADIOLOGIST (Mobile Web Application Developer) /CARLOS A ROWELL [facility] Pathology Reports: [...] COMPLETED $APHDR Reporting Lab: [facility] [CLIA# [id number]] [place] [address] - - - - - - - [...] - PATHOLOGY REPORT Accession No. [id number] - - - - - - - [...] - PATHOLOGY REPORT Accession No. [id number] - - - - - - - [...] Second circumferential surgical margin, en face; E-F: Sharemilker diverticula; G: Sharemilker section of mesentery; H: Random credit resolution representative section of additional adipose tissue fragment. SS. 2. The specimen is received in formalin labeled anastomotic rings and consists of two unoriented colonic tissue rings measuring 1.0 cm in length x 2.2 cm in diameter and 1.2 cm in length x 2.0 cm in diameter. The shorter tissue ring contains numerous jeannine; the jaennine are removed and salvageable tissue is submitted. [...] Pathology Report Performed By: [facility] [CLIA# [id number]] [place] [address] $FTR - - - - - - [...] - - FLACA WEAVER STANDARD FORM 515 ID:[id number] SEX:M :1950 AGE: 73 LOC:23755 ADM:Jun DX:DIVERTICULITIS PCP: Jatinder Cabrera /alexi/ EDUARDO PALOMARES MD STAFF PATHOLOGIST Signed: 07/06/2024 10:40 EDUARDO PALOMARES [facility] Jun 22, 2024 01:15 PM LR MICROBIOLOGY RE PORT: Reporting Lab: [facility] [CLIA# [id number]] [address] [place] [address] Accession [UID]: [id number] [[id number]] Received: Jun 22, 2024@13:38 Collection sample: FLUID Collection date: Jun 22, 2024 13:15 Provider: ANGELA HOLDEN Comment on specimen: LLQ ABSCESS, RECEIVED IN ANAEROBIC TRANSPORT VIAL Test(s) ordered: GRAM STAIN.................... completed: Jun 22, 2024 15:03 CULTURE & SUSCEPTIBILITY...... completed: Jun 25, 2024 * BACTERIOLOGY FINAL REPORT => Jun 25, 2024 10:56 TECH CODE: [id number] GRAM STAIN: DIRECT SMEAR of specimen before [...] Bacteriology Report Performed By: [facility] [CLIA# [id number]] [place] [address] [facility] Jun 22, 2024 01:15 PM LR MICROBIOLOGY RE PORT: Reporting Lab: [facility] [CLIA# [id number]] [place] [address] Accession [UID]: [id number] [[id number]] Received: Jun 22, 2024@13:38 Collection sample: FLUID Collection date: Jun 22, 2024 13:15 Provider: ANGELA HOLDEN Comment on specimen: LLQ ABSCESS, RECEIVED IN ANAEROBIC TRANSPORT VIAL Test(s) ordered: ANAEROBIC CULTURE............. completed: Jun 28, 2024 * BACTERIOLOGY FINAL REPORT => Jun 28, 2024 10:08 [facility] CODE: [id number] CULTURE RESULTS: HEAVY GROWTH MIXED ANAEROBES Comment: [...] Bacteriology Report Performed By: [facility] [CLIA# [id number]] [place] [address] [facility] Jun 21, 2024 06:12 PM LR MICROBIOLOGY RE PORT: Reporting Lab: [facility] [IA# [id number]] [place] [address] Accession [UID]: [id number] [[id number]] Received: Jun 21, 2024@18:12 Collection sample: BLOOD [...] Laboratory: Bacteriology Report Performed By: [facility] [IA# [id number]] [place] [address] [facility] Jun 21, 2024 06:11 PM LR MICROBIOLOGY RE PORT: Reporting Lab: [facility] [IA# [id number]] [place] [address] Accession [UID]: [id number] [[id number]] Received: Jun 21, 2024@18:11 Collection sample: BLOOD [...] Bacteriology Report Performed By: [facility] [CLIA# [id number]] [address] [place] [address] [facility] Encounter Notes: All associated encounter notes This section contains the clinical notes associated to the Encounter. Date/Time Encounter Note(s) Provider Source Jul 10, 2024 01:46 PM REPORT OF CONTACT: LOCAL TITLE: APPOINTMENT SCHEDULING NOTE STANDARD TITLE: REPORT OF CONTACT DATE OF NOTE: JUL 10, 2024@13:46 ENTRY DATE: JUL 10, 2024@13:46:45 AUTHOR: RICKY MIRANDA EXP COSIGNER: URGENCY: STATUS: COMPLETED Attempted to schedule Return to clinic (RTC) Contact attempt made to [facility] 1st attempt Telephone 2nd attempt Letter - Sent letter by regular [place] mail to address on file: MEGFLACA Y[address]IL [address], [place] [address] declines to schedule/reschedule, due to requested different PCP and hanged up the phone on me If [facility] calls back, schedule appt for: [facility] PACT IRIS 4D - #NLT #with BMP, please try to coordinate with surgery follow up /es/ RICKY MIRANDA MSA Signed: 07/10/2024 13:50 Receipt Acknowledged By: 07/10/2024 15:50 /es/ Jatinder Cabrera MD Physician RICKY MIRANDA [facility]
--- OUTSIDE RECORDS SUMMARY | 2024-07-16 07:23 | XMS_ITS | Encounter Summary ---
Author Name [facility] [place] [facility] [place] Address [address] [place] [address] Care Team Providers Care Toddler Teacher Name Role Phone JATINDER CABRERA Primary Care [...] PART A Sep 29, 2016 PART A [id number] [phone] JUDY WEAVER PATIENT Selected Encounter This section includes the information on record at [place] for the Encounter. Date/Time Encounter Type Encounter Description Reason Pro vider Source Jul 10, 2024 12:54 PM Outpatient Encounter GENERAL SURGERY IHE Encounter Template Text not used by [...] 13, 2024 08:15 AM AMBULATORY - NONE [facility] Active, Pending, and Scheduled Orders This [...] Chemi stry Order URINALYSIS URINE WC ONCE [facility] Jun 12, 2024 12:00 AM Laboratory - Chemi stry Order BNP PLASMA SP ONCE [facility] Jun 21, 2024 05:45 PM Laboratory - Blood Bank Order TYPE & SCREEN - LAB BLOOD [facility] Jul 03, 2024 12:00 AM Laboratory - Blood Bank Order TYPE & SCREEN - LAB BLOOD [facility] Jul 16, 2024 12:00 AM Laboratory - Chemi stry Order CBC BLOOD SP ONCE [facility] Jul 17, 2024 12:00 AM Laboratory - Chemi stry Order BASIC METABOLIC PANEL+MG PLASMA SP ONCE [facility] Lab Results: [...] Range Comment Jul 10, 2024 07:16 AM [facility] PHOSPHORUS Specimen Type: PLASMA No comment entered. Ordering Provider: JUANCARLOS ECHOLS S Report Released Date/Time: Jul 09, 2024 12:23 PM Reporting Lab: [facility] [address] Performing Lab: [facility] [address] PHOSPHORUS 3.0 mg/dL 2.3-4.3 Jul 10, 2024 07:16 AM [facility] BASIC METABOLIC PANEL+MG Specimen Type: PLASMA No comment entered. Ordering Provider: JUANCARLOS ECHOLS S Report Released Date/Time: Jul 09, 2024 12:23 PM Reporting Lab: [facility] [address] Performing Lab: [facility] [address] CREATININE 0.7 mg/dL 0.7-1.2 UREA NITROGEN 27 mg/dL H 8-26 GLUCOSE 104 mg/dL H 70-100 SODIUM 133 mmol/L L 136-145 POTASSIUM 4.3 mmol/L 3.5-5.1 CHLORIDE 102 mmol/L 98-107 CO2 19 mmol/L L 22-29 CALCIUM 10.1 mg/dL 8.4-10.2 MAGNESIUM 1.9 mg/dL 1.6-2.6 ANION GAP 12 mmol/L 5-15 .CREAT EGFR(CKD-EPI) >90 >60 Jul 10, 2024 07:15 AM [facility] CBC Specimen Type: BLOOD No comment entered. Ordering Provider: JUANCARLOS ECHOLS Report Released Date/Time: Jul 09, 2024 12:23 PM Reporting Lab: [facility] [address] Performing Lab: [facility] [address] WBC 18.8 H 4.0-11.0 RBC 5.08 4.60-6.20 HGB 15.9 g/dL 13.5-17.9 HCT 46.8 41.0-54.0 MCV 92.1 fL 80.0-100.0 MCH 31.3 pg 27.0-33.0 MCHC 34.0 g/dL 32.0-37.5 PLT 479 H 150-400 MPV 10.2 fL 9.1-13.0 RDW 13.7 11.5-14.5 Jul 09, 2024 07:08 AM [facility] CBC Specimen Type: BLOOD No comment entered. Ordering Provider: QUYNH WEISS Report Released Date/Time: Jul 08, 2024 06:18 PM Reporting Lab: [facility] [address] Performing Lab: [facility] [address] WBC 15.3 H 4.0-11.0 RBC 4.91 4.60-6.20 HGB 15.1 g/dL 13.5-17.9 HCT 45.7 41.0-54.0 MCV 93.1 fL 80.0-100.0 MCH 30.8 pg 27.0-33.0 MCHC 33.0 g/dL 32.0-37.5 PLT 443 H 150-400 MPV 10.0 fL 9.1-13.0 RDW 13.5 11.5-14.5 Jul 08, 2024 10:50 AM [facility] URINALYSIS Specimen Type: URINE No comment entered. Ordering Provider: KATELYNN PERSON Report Released Date/Time: Jul 08, 2024 08:41 AM Reporting Lab: [facility] [address] Performing Lab: [facility] [address] URINE COLOR YELLOW SPECIFIC GRAVITY >1.050 H [...] NEGATIVE NEGATIVE Jul 08, 2024 09:54 AM [facility] CBC Specimen Type: BLOOD Comment: Specimen received in Lab at: 0952 Ordering Provider: JUANCARLOS ECHOLS Report Released Date/Time: Jul 07, 2024 04:49 PM Reporting Lab: [facility] [address] Performing Lab: [facility] [address] WBC 17.5 H 4.0-11.0 RBC 4.88 4.60-6.20 HGB 14.9 g/dL 13.5-17.9 HCT 45.7 41.0-54.0 MCV 93.6 fL 80.0-100.0 MCH 30.5 pg 27.0-33.0 MCHC 32.6 g/dL 32.0-37.5 PLT 472 H 150-400 MPV 10.2 fL 9.1-13.0 RDW 13.7 11.5-14.5 Jul 08, 2024 09:54 AM [facility] PHOSPHORUS Specimen Type: PLASMA Comment: Specimen received in Lab at: 0952 Ordering Provider: JUANCARLOS ECHOLS Report Released Date/Time: Jul 07, 2024 04:49 PM Reporting Lab: [facility] [address] Performing Lab: [facility] [address] PHOSPHORUS 2.6 mg/dL 2.3-4.3 Jul 08, 2024 09:54 AM [facility] BASIC METABOLIC PANEL+MG Specimen Type: PLASMA Comment: Specimen received in Lab at: 0952 Ordering Provider: JUANCARLOS ECHOLS Report Released Date/Time: Jul 07, 2024 04:49 PM Reporting Lab: [facility] [address] Performing Lab: [facility] [address] CREATININE 0.9 mg/dL 0.7-1.2 UREA NITROGEN 26 mg/dL 8-26 GLUCOSE 128 mg/dL H 70-100 SODIUM 134 mmol/L L 136-145 POTASSIUM 3.4 mmol/L L 3.5-5.1 CHLORIDE 100 mmol/L 98-107 CO2 24 mmol/L 22-29 CALCIUM 9.8 mg/dL 8.4-10.2 MAGNESIUM 1.8 mg/dL 1.6-2.6 ANION GAP 10 mmol/L 5-15 .CREAT EGFR(CKD-EPI) >90 >60 Jul 07, 2024 02:00 PM [facility] C DIFF PANEL Specimen Type: FECES No comment entered. Ordering Provider: JEVON ZAZUETA Report Released Date/Time: Jul 07, 2024 12:26 PM Reporting Lab: [facility] [address] Performing Lab: [facility] [address] C DIFF TOX B GENE PCR NEGATIVE Negative Jul 07, 2024 07:41 AM [facility] PHOSPHORUS Specimen Type: PLASMA No comment entered. Ordering Provider: JEVON ZAZUETA Report Released Date/Time: Jul 06, 2024 03:44 PM Reporting Lab: [facility] [address] Performing Lab: [facility] [address] PHOSPHORUS 3.1 mg/dL 2.3-4.3 Jul 07, 2024 07:41 AM [facility] BASIC METABOLIC PANEL+MG Specimen Type: PLASMA No comment entered. Ordering Provider: JEVON ZAZUETA Report Released Date/Time: Jul 06, 2024 03:44 PM Reporting Lab: [facility] [address] Performing Lab: [facility] [address] CREATININE 0.9 mg/dL 0.7-1.2 UREA NITROGEN 20 mg/dL 8-26 GLUCOSE 157 mg/dL H 70-100 SODIUM 136 mmol/L 136-145 POTASSIUM 3.7 mmol/L 3.5-5.1 CHLORIDE 102 mmol/L 98-107 CO2 21 mmol/L L 22-29 CALCIUM 9.8 mg/dL 8.4-10.2 MAGNESIUM 1.9 mg/dL 1.6-2.6 ANION GAP 13 mmol/L 5-15 .CREAT EGFR(CKD-EPI) >90 >60 Jul 07, 2024 07:40 AM [facility] CBC Specimen Type: BLOOD No comment entered. Ordering Provider: JEVON ZAZUETA Report Released Date/Time: Jul 06, 2024 03:44 PM Reporting Lab: [facility] [address] Performing Lab: [facility] [address] WBC 21.2 H 4.0-11.0 RBC 5.09 4.60-6.20 HGB 15.9 g/dL 13.5-17.9 HCT 48.3 41.0-54.0 MCV 94.9 fL 80.0-100.0 MCH 31.2 pg 27.0-33.0 MCHC 32.9 g/dL 32.0-37.5 PLT 500 H 150-400 MPV 10.3 fL 9.1-13.0 RDW 13.6 11.5-14.5 Jul 06, 2024 07:21 AM [facility] CBC Specimen Type: BLOOD No comment entered. Ordering Provider: JEVON ZAZUETA Report Released Date/Time: Jul 05, 2024 01:22 PM Reporting Lab: [facility] [address] Performing Lab: [facility] [address] WBC 18.0 H 4.0-11.0 RBC 4.83 4.60-6.20 HGB 14.6 g/dL 13.5-17.9 HCT 45.5 41.0-54.0 MCV 94.2 fL 80.0-100.0 MCH 30.2 pg 27.0-33.0 MCHC 32.1 g/dL 32.0-37.5 PLT 368 150-400 MPV 10.4 fL 9.1-13.0 RDW 13.6 11.5-14.5 Jul 06, 2024 07:21 AM [facility] PHOSPHORUS Specimen Type: PLASMA No comment entered. Ordering Provider: JEVON ZAZUETA Report Released Date/Time: Jul 05, 2024 01:22 PM Reporting Lab: [facility] [address] Performing Lab: [facility] [address] PHOSPHORUS 3.6 mg/dL 2.3-4.3 Jul 06, 2024 07:21 AM [facility] BASIC METABOLIC PANEL+MG Specimen Type: PLASMA No comment entered. Ordering Provider: JEVON ZAZUETA Report Released Date/Time: Jul 05, 2024 01:22 PM Reporting Lab: [facility] [address] Performing Lab: [facility] [address] CREATININE 0.7 mg/dL 0.7-1.2 UREA NITROGEN 12 mg/dL 8-26 GLUCOSE 108 mg/dL H 70-100 SODIUM 138 mmol/L 136-145 POTASSIUM 3.4 mmol/L L 3.5-5.1 CHLORIDE 104 mmol/L 98-107 CO2 20 mmol/L L 22-29 CALCIUM 9.3 mg/dL 8.4-10.2 MAGNESIUM 1.9 mg/dL 1.6-2.6 ANION GAP 14 mmol/L 5-15 .CREAT EGFR(CKD-EPI) >90 >60 Jul 05, 2024 07:17 AM [facility] MAGNESIUM Specimen Type: PLASMA No comment entered. Ordering Provider: JUANCARLOS ECHOLS S Report Released Date/Time: Jul 04, 2024 09:39 AM Reporting Lab: [facility] [address] Performing Lab: [facility] [address] MAGNESIUM 2.0 mg/dL 1.6-2.6 Jul 05, 2024 07:17 AM [facility] PHOSPHORUS Specimen Type: PLASMA No comment entered. Ordering Provider: JUANCARLOS ECHOLS S Report Released Date/Time: Jul 04, 2024 09:39 AM Reporting Lab: [facility] [address] Performing Lab: [facility] [address] PHOSPHORUS 2.0 mg/dL L 2.3-4.3 Jul 05, 2024 07:17 AM [facility] BASIC METABOLIC PANEL+MG Specimen Type: PLASMA No comment entered. Ordering Provider: JUANCARLOS ECHOLS S Report Released Date/Time: Jul 04, 2024 09:39 AM Reporting Lab: [facility] [address] Performing Lab: [facility] [address] CREATININE 0.7 mg/dL 0.7-1.2 UREA NITROGEN 12 mg/dL 8-26 GLUCOSE 84 mg/dL 70-100 SODIUM 135 mmol/L L 136-145 POTASSIUM 3.8 mmol/L 3.5-5.1 CHLORIDE 104 mmol/L 98-107 CO2 24 mmol/L 22-29 CALCIUM 9.3 mg/dL 8.4-10.2 MAGNESIUM 2.0 mg/dL 1.6-2.6 ANION GAP 7 mmol/L 5-15 .CREAT EGFR(CKD-EPI) >90 >60 Jul 05, 2024 07:16 AM [facility] CBC Specimen Type: BLOOD No comment entered. Ordering Provider: JUANCARLOS ECHOLS S Report Released Date/Time: Jul 04, 2024 09:39 AM Reporting Lab: [facility] [address] Performing Lab: [facility] [address] WBC 18.3 H 4.0-11.0 RBC 4.49 L 4.60-6.20 HGB 14.1 g/dL 13.5-17.9 HCT 43.4 41.0-54.0 MCV 96.7 fL 80.0-100.0 MCH 31.4 pg 27.0-33.0 MCHC 32.5 g/dL 32.0-37.5 PLT 317 150-400 MPV 10.0 fL 9.1-13.0 RDW 13.9 11.5-14.5 Jul 04, 2024 07:17 AM [facility] PHOSPHORUS Specimen Type: PLASMA No comment entered. Ordering Provider: GABINO CAMERON Report Released Date/Time: Jul 03, 2024 06:31 PM Reporting Lab: [facility] [address] Performing Lab: [facility] [address] PHOSPHORUS 2.8 mg/dL 2.3-4.3 Jul 04, 2024 07:17 AM [facility] BASIC METABOLIC PANEL+MG Specimen Type: PLASMA No comment entered. Ordering Provider: GABINO CAMERON Report Released Date/Time: Jul 03, 2024 06:31 PM Reporting Lab: [facility] [address] Performing Lab: [facility] [address] CREATININE 0.7 mg/dL 0.7-1.2 UREA NITROGEN 16 mg/dL 8-26 GLUCOSE 129 mg/dL H 70-100 SODIUM 137 mmol/L 136-145 POTASSIUM 3.7 mmol/L 3.5-5.1 CHLORIDE 107 mmol/L 98-107 CO2 22 mmol/L 22-29 CALCIUM 9.0 mg/dL 8.4-10.2 MAGNESIUM 1.9 mg/dL 1.6-2.6 ANION GAP 8 mmol/L 5-15 .CREAT EGFR(CKD-EPI) >90 >60 Jul 04, 2024 07:16 AM [facility] CBC Specimen Type: BLOOD No comment entered. Ordering Provider: GABINO CAMERON Report Released Date/Time: Jul 03, 2024 06:31 PM Reporting Lab: [facility] [address] Performing Lab: [facility] [address] WBC 20.6 H 4.0-11.0 RBC 4.63 4.60-6.20 HGB 14.2 g/dL 13.5-17.9 HCT 43.4 41.0-54.0 MCV 93.7 fL 80.0-100.0 MCH 30.7 pg 27.0-33.0 MCHC 32.7 g/dL 32.0-37.5 PLT 329 150-400 MPV 10.4 fL 9.1-13.0 RDW 13.8 11.5-14.5 Jul 04, 2024 07:16 AM [facility] CBC & DIFF Specimen Type: BLOOD Comment: Manual Differential Performed Ordering Provider: GABINO CAMERON Report Released Date/Time: Jul 03, 2024 06:31 PM Reporting Lab: [facility] [address] Performing Lab: [facility] [address] WBC 20.6 H 4.0-11.0 RBC 4.63 4.60-6.20 [...] MORPHOLOGY PRESENT Jul 04, 2024 07:15 AM [facility] BNP Specimen Type: PLASMA No comment entered. Ordering Provider: GABINO CAMERON Report Released Date/Time: Jul 03, 2024 06:31 PM Reporting Lab: [facility] [address] Performing Lab: [facility] [address] BNP 292 pg/mL H <99 Jul 03, 2024 10:32 PM [facility] FINGERSTICK GLUCOSE Specimen Type: BLOOD Comment: Save Result Nurse Notified Ordering Provider: KATELYNN PERSON Report Released Date/Time: Jul 03, 2024 10:50 PM Reporting Lab: [facility] [address] Performing Lab: [facility] [address] FINGERSTICK GLUCOSE 126 mg/dL H 70-100 Jul 03, 2024 05:33 PM [facility] FINGERSTICK GLUCOSE Specimen Type: BLOOD Comment: Save Result Nurse Notified Ordering Provider: KATELYNN PERSON Report Released Date/Time: Jul 03, 2024 05:46 PM Reporting Lab: [facility] [address] Performing Lab: [facility] [address] FINGERSTICK GLUCOSE 141 mg/dL H 70-100 Jul 03, 2024 02:31 PM [facility] POC ABG/ELECTROLYTES Specimen Type: ARTERIAL BLOOD Comment: FIO2 = 97% Patient Temp: 36.0 C Sample Type = ARTERIAL Ordering Provider: MAZIN ARREDONDO Report Released Date/Time: Jul 03, 2024 01:48 PM Reporting Lab: [facility] [address] Performing Lab: [facility] [address] POC PH 7.387 7.35-7.45 POC PCO2 34.4 [...] H 80.0-105.0 Jul 03, 2024 01:05 PM [facility] POC ABG/ELECTROLYTES Specimen Type: ARTERIAL BLOOD Comment: FIO2 = 53% Patient Temp: 36.2 C Sample Type = ARTERIAL Ordering Provider: MAZIN ARREDONDO Report Released Date/Time: Jul 03, 2024 01:48 PM Reporting Lab: [facility] [address] Performing Lab: [facility] [address] POC PH 7.280 L 7.35-7.45 POC PCO2 [...] mm[Hg] 80.0-105.0 Jul 03, 2024 06:15 AM [facility] URINALYSIS Specimen Type: URINE No comment entered. Ordering Provider: MARYBETH POWELL Report Released Date/Time: Jun 12, 2024 04:01 PM Reporting Lab: [facility] [address] Performing Lab: [facility] [address] URINE COLOR YELLOW SPECIFIC GRAVITY 1.031 1.003-1.03 [...] 250 NEGATIVE Jul 03, 2024 06:13 AM [facility] CBC Specimen Type: BLOOD No comment entered. Ordering Provider: MARYBETH POWELL Report Released Date/Time: Jun 12, 2024 03:59 PM Reporting Lab: [facility] [address] Performing Lab: [facility] [address] WBC 15.8 H 4.0-11.0 RBC 5.11 4.60-6.20 HGB 16.1 g/dL 13.5-17.9 HCT 49.1 41.0-54.0 MCV 96.1 fL 80.0-100.0 MCH 31.5 pg 27.0-33.0 MCHC 32.8 g/dL 32.0-37.5 PLT 357 150-400 MPV 9.8 fL 9.1-13.0 RDW 13.7 11.5-14.5 Jun 24, 2024 09:50 AM [facility] BASIC METABOLIC PANEL+MG Specimen Type: PLASMA Comment: Specimen received in Lab at: 0948 Ordering Provider: JEVON ZAZUETA Report Released Date/Time: Jun 23, 2024 06:07 PM Reporting Lab: [facility] [address] Performing Lab: [facility] [address] CREATININE 0.8 mg/dL 0.7-1.2 UREA NITROGEN 13 mg/dL 8-26 GLUCOSE 135 mg/dL H 70-100 SODIUM 135 mmol/L L 136-145 POTASSIUM 3.6 mmol/L 3.5-5.1 CHLORIDE 103 mmol/L 98-107 CO2 24 mmol/L 22-29 CALCIUM 9.2 mg/dL 8.4-10.2 MAGNESIUM 1.9 mg/dL 1.6-2.6 ANION GAP 8 mmol/L 5-15 .CREAT EGFR(CKD-EPI) >90 >60 Jun 24, 2024 09:50 AM [facility] CBC Specimen Type: BLOOD Comment: Specimen received in Lab at: 0948 Ordering Provider: JEVON ZZAUETA Report Released Date/Time: Jun 23, 2024 06:07 PM Reporting Lab: [facility] [address] Performing Lab: [facility] [address] WBC 15.5 H 4.0-11.0 RBC 4.93 4.60-6.20 HGB 15.2 g/dL 13.5-17.9 HCT 46.5 41.0-54.0 MCV 94.3 fL 80.0-100.0 MCH 30.8 pg 27.0-33.0 MCHC 32.7 g/dL 32.0-37.5 PLT 223 150-400 MPV 11.4 fL 9.1-13.0 RDW 13.9 11.5-14.5 Jun 23, 2024 07:52 AM [facility] COMPREHENSIVE METABOLIC PANEL+MG Specimen Type: PLASMA No comment entered. Ordering Provider: JEVON ZAZUETA Report Released Date/Time: Jun 22, 2024 05:51 PM Reporting Lab: [facility] [address] Performing Lab: [facility] [address] CREATININE 0.7 mg/dL 0.7-1.2 UREA NITROGEN 16 [...] >90 >60 Jun 23, 2024 07:52 AM [facility] CBC & DIFF Specimen Type: BLOOD Comment: Automated Differential Performed Ordering Provider: JEVON ZAZUETA Report Released Date/Time: Jun 22, 2024 05:51 PM Reporting Lab: [facility] [address] Performing Lab: [facility] [address] WBC 14.9 H 4.0-11.0 RBC 5.09 4.60-6.20 [...] 0.1 0.0-0.1 Jun 22, 2024 06:10 PM [facility] CBC Specimen Type: BLOOD No comment entered. Ordering Provider: JEVON ZAZUETA Report Released Date/Time: Jun 22, 2024 05:51 PM Reporting Lab: [facility] [address] Performing Lab: [facility] [address] WBC 16.9 H 4.0-11.0 RBC 5.28 4.60-6.20 HGB 16.9 g/dL 13.5-17.9 HCT 50.4 41.0-54.0 MCV 95.5 fL 80.0-100.0 MCH 32.0 pg 27.0-33.0 MCHC 33.5 g/dL 32.0-37.5 PLT 223 150-400 MPV 10.9 fL 9.1-13.0 RDW 14.0 11.5-14.5 Jun 22, 2024 06:10 PM [facility] COMPREHENSIVE METABOLIC PANEL+MG Specimen Type: PLASMA No comment entered. Ordering Provider: JEVON ZAZUETA Report Released Date/Time: Jun 22, 2024 05:51 PM Reporting Lab: [facility] [address] Performing Lab: [facility] [address] CREATININE 0.7 mg/dL 0.7-1.2 UREA NITROGEN 17 [...] >90 >60 Jun 21, 2024 06:48 PM [facility] URINALYSIS Specimen Type: URINE No comment entered. Ordering Provider: DELIA MARTINEZ Report Released Date/Time: Jun 21, 2024 05:45 PM Reporting Lab: [facility] [address] Performing Lab: [facility] [address] URINE COLOR YELLOW SPECIFIC GRAVITY 1.041 H [...] 500 NEGATIVE Jun 21, 2024 05:34 PM [facility] POC CREATININE Specimen Type: BLOOD No comment entered. Ordering Provider: DELIA MARTINEZ Report Released Date/Time: Jun 21, 2024 06:07 PM Reporting Lab: [facility] [address] Performing Lab: [facility] [address] POC CREATININE 1.1 mg/dL 0.6-1.3 Jun 21, 2024 05:30 PM [facility] POC ABG/LACTATE Specimen Type: VENOUS BLOOD No comment entered. Ordering Provider: DELIA MARTINEZ Report Released Date/Time: Jun 21, 2024 06:07 PM Reporting Lab: [facility] [address] Performing Lab: [facility] [address] POC PH 7.470 H 7.31-7.41 POC PCO2 31.2 mm[Hg] L 41.00-51 .0 0 POC PO2 46 mm[Hg] H 35.0-40.0 POC TCO2 24 mmol/L 24.0-29.0 POC HCO3 22.7 mmol/L L 23.0-28.0 POC BE ECT -1 mmol/L POC SO2 85 H 70-75 POC LACTATE 1.85 mmol/L 0.90-1.70 Jun 21, 2024 05:24 PM [facility] PROTHROMBIN TIME/INR Specimen Type: PLASMA No comment entered. Ordering Provider: DELIA MARTINEZ Report Released Date/Time: Jun 21, 2024 05:30 PM Reporting Lab: [facility] [address] Performing Lab: [facility] [address] .INR 1.2 H 0.8-1.1 .PT 13.9 s H 9.4-12.5 Jun 21, 2024 05:24 PM [facility] LIPASE Specimen Type: PLASMA No comment entered. Ordering Provider: DELIA MARTINEZ Report Released Date/Time: Jun 21, 2024 05:30 PM Reporting Lab: [facility] [address] Performing Lab: [facility] [address] LIPASE 32 U/L <60 Jun 21, 2024 05:24 PM [facility] EXTRA GOLD GEL TUBE Specimen Type: SERUM No comment entered. Ordering Provider: DELIA MARTINEZ Report Released Date/Time: Jun 21, 2024 05:41 PM Reporting Lab: [facility] [address] Performing Lab: [facility] [address] EXTRA GOLD GEL TUBE RECEIVED Jun 21, 2024 05:24 PM [facility] COMPREHENSIVE METABOLIC PANEL+MG Specimen Type: PLASMA No comment entered. Ordering Provider: DELIA MARTINEZ Report Released Date/Time: Jun 21, 2024 05:30 PM Reporting Lab: [facility] [address] Performing Lab: [facility] [address] CREATININE 0.9 mg/dL 0.7-1.2 UREA NITROGEN 29 [...] mg/dL <0.5 Jun 21, 2024 05:24 PM [facility] CBC & DIFF Specimen Type: BLOOD Comment: Manual Differential Performed Ordering Provider: DELIA MARTINEZ Report Released Date/Time: Jun 21, 2024 05:30 PM Reporting Lab: [facility] [address] Performing Lab: [facility] [address] WBC 21.3 H 4.0-11.0 RBC 5.48 4.60-6.20 [...] 15, 2024 08:30 AM [place] [facility] Y[facility] OR MORE [facility] May 06, 2023 11:30 AM [place]BACCO FORMER USER [facility] May 06, 2023 11:30 AM [...] VIEWS PA A ND LAT: FLACA WEAVER [id number] M Exm Date: JUL 08, 2024@10:09 Req Phys: KATELYNN PERSON Pat Loc: [facility]/07-08-2024@11:49 Img Loc: MAIN X-RAY Service: [place] [address] (Case 24 COMPLETE) CHEST 2 VIEWS PA AND LAT (RAD Detailed) CPT:60857 Reason for Study: Uptrending WBC, POD 5 Clinical History: [place] IS NOT under investigation for COVID-19 or is COVID-19 negative POD 5, work up for uptrending wbc Responsible provider name and phone number to notify for critical findings if other than user placing the order and pager listed below: User placing orders pager: Katelynn Person LAST CREATININE 0.9 (07/07/24) Report Status: Verified Date Reported: JUL 08, 2024 Date Verified: JUL 08, 2024 Hot Top Liner Helper E-Sig: Report: CHEST 2 VIEWS PA AND LAT HISTORY: Uptrending WBC, POD 5 COMPARISON: CT chest 11/12/2022 TECHNIQUE: Frontal and lateral views of the chest, submitted to the [place] National Teleradiology Program (NTP) for interpretation. FINDINGS: Lungs: Clear. No focal consolidation. No pulmonary edema. Pleura: No pleural effusion or pneumothorax. Mediastinum: Normal size and contour. Bones: Unremarkable. Impression: No acute cardiopulmonary disease. READING PHYSICIAN: Sarbjit Vaughn M.D. -[id number] 07/08/2024 12:46 EST [facility] National Teleradiology Program [phone] (For Medical Practitioner Use Only) Attention Patients / Veterans: If you have questions or concerns about these test results, please contact your ordering provider or primary care team. Primary Interpreting Staff: RADIOLOGY,OUTSIDE SERVICE, Staff Physician / RADIOLOGY,OUTSIDE SERVICE [facility] Jul 08, 2024 10:[address] (AP) ABDOMEN/PE LVIS W CONTRAST: FLACA WEAVER [id number] -1950 M Exm Date: JUL 08, 2024@10:00 Req Phys: KATELYNN PERSON Loc: 2KG/07-08-2024@12:07 Img Loc: CT IMAGING Service: [place] [address] (Case 22 COMPLETE) CT (AP) ABDOMEN/PELVIS W CONTRAST(CT Detailed) CPT:13810 Contrast Media : Non-ionic Iodinated Reason for [...] PLASMA .CREAT EGFR(CKD-E >90 Ref: >=60 Allergies: ([place] only) TERAZOSIN (Mar 13, 2015) Report Status: Verified Date Reported: JUL 08, 2024 Date Verified: JUL 08, 2024 Hot Top Liner Helper E-Sig: Report: CT (AP) ABDOMEN/PELVIS W CONTRAST HISTORY: POD 5, Uptrending WBC - Concern for Abscess/other infection COMPARISON: June 21, 2024 TECHNIQUE: CT abdomen and pelvis was performed after intravenous contrast. Axial, sagittal and coronal reformatted images. The study was performed at the local [place] facility and images were sent to the [place] National Teleradiology Program (NTP) for interpretation. Number [...] as noted above READING PHYSICIAN: Celestino Blanc -[id number] 07/08/2024 13:04 EST [facility] National Teleradiology Program [phone] (For Medical Practitioner Use Only) Attention Patients / Veterans: If you have questions or concerns about these test results, please contact your ordering provider or primary care team. Primary Interpreting Staff: RADIOLOGY,OUTSIDE SERVICE, Staff Physician / RADIOLOGY,OUTSIDE SERVICE [facility] Jun 22, 2024 11:49 AM ABSCESS DRAIN PLAC EMENT PERITONEAL (P): FLACA WEAVER [id number] -1950 M Exm Date: JUN 22, 2024@11:49 Req Phys: ANGELA HOLDEN Loc: [facility]/06-22-2024@17:14 Img Loc: INTERVENTIONAL RADIOLOGY Service: [place] [address] (Case [id number] COMPLETE) IR PERITONEAL/RETROPERITONEAL PER(ANI Detailed) CPT:64493 Reason for Study: diverticulitis with abscess (Case [id number] COMPLETE) IR MOD SEDATION 10-22 MIN (ANI Detailed) CPT:52921 Clinical History: [place] IS NOT under investigation for COVID-19 or is COVID-19 negative 73 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 please place abscess drain. Contact number for responsible provider who can be reached for any questions or notifications of critical findings: [phone] n/a LAST CREATININE 0.9 (06/21/24) Report Status: Verified Date Reported: JUN 22, 2024 Date Verified: JUN 22, 2024 Hot Top Liner Helper E-Sig:/ES/LISA PENDLETON MD Report: PROCEDURES: Placement [...] A pre-procedural Time-Out was performed per [facility] policy. The patient was placed in the supine position on the CT table. Preprocedural scan performed. The suprapubic region/lower abdominal wall was sterilely prepped and draped in the usual fashion.1% lidocaine without epinephrine was used for local anesthesia. Using real-time CT fluoroscopy, a 5 [employer] [employer] centesis catheter was advanced into the collection in the left pelvis. A wire was coiled in the collection. The tract into the collection was dilated to accommodate the 12 Faroese locking pigtail drainage catheter. There was return [...] Primary Interpreting Staff: LISA PENDLETON MD, RADIOLOGIST (Hot Top Liner Helper) /JRT LISA PENDLETON [facility] Jun 22, 2024 11:[address] NEEDLE PLACEMEN T (P): FLACA WEAVER [id number] -1950 M Exm Date: JUN 22, 2024@11:48 Req Phys: ANGELA HOLDEN [facility] Loc: [facility]/06-22-2024@17:14 Img Loc: CT IMAGING Service: [place] [address] (Case [id number] COMPLETE) CT SCAN FOR NEEDLE PLACEMENT (CT Detailed) CPT:47041 Reason for Study: l pelvic abscess drain Clinical History: Report Status: Verified Date Reported: JUN 22, 2024 Date Verified: JUN 22, 2024 Hot Top Liner Helper E-Sig:/ES/LISA PENDLETON MD Report: PROCEDURES: Placement [...] A pre-procedural Time-Out was performed per [facility] policy. The patient was placed in the supine position on the CT table. Preprocedural scan performed. The suprapubic region/lower abdominal wall was sterilely prepped and draped in the usual fashion.1% lidocaine without epinephrine was used for local anesthesia. Using real-time CT fluoroscopy, a 5 Faroese Mimubesis catheter was advanced into the collection in the left pelvis. A wire was coiled in the collection. The tract into the collection was dilated to accommodate the 12 Faroese locking pigtail drainage catheter. There was return [...] Primary Interpreting Staff: LISA PENDLETON MD, RADIOLOGIST (Hot Top Liner Helper) /JRT LISA PENDLETON [facility] Jun 21, 2024 06:[address] (AP) ABDOMEN/PE LVIS (P): MEGFLACA YAMIL [id number] -1950 M Ex Date: JUN 21, 2024@18:09 Req Phys: DELIA MARTINEZ Loc: [facility] EMERGENCY DEPT WALK-IN (Re Img Loc: CT IMAGING Service: [place] [address] (Case [id number] COMPLETE) CT (AP) ABDOMEN/PELVIS W CONTRAST(CT Detailed) CPT:82153 Contrast Media : Non-ionic Iodinated Reason for [...] PLASMA .CREAT EGFR(CKD-E >90 Ref: >=60 Allergies: ([facility]) TERAZOSIN (Mar 13, 2015) Defer to radiologist [...] 21, 2024 Date Verified: JUN 21, 2024 Hot Top Liner Helper E-Sig:/ALEXI/CARLOS A CUNNINGHAM DO Report: EXAMINATION: [...] Interpreting Staff: CARLOS A CUNNINGHAM DO, RADIOLOGIST (Hot Top Liner Helper) /CARLOS A ROWELL [facility] Pathology Reports: +/- [...] COSIGNER: URGENCY: STATUS: COMPLETED $APHDR Reporting Lab: [facility] [CLIA# [id number]] [place] [address] - - - - - - - [...] - PATHOLOGY REPORT Accession No. [id number] - - - - - - - [...] - PATHOLOGY REPORT Accession No. [id number] - - - - - - - [...] Second circumferential surgical margin, en face; E-F: Lightning Protection Installer diverticula; G: Lightning Protection Installer section of mesentery; H: Random insurance healthcare representative section of additional adipose tissue fragment. [...] Performing Laboratory: Surgical Pathology Report Performed By: [facility] [CLIA# [id number]] [place] [address] $FTR - - - - - - [...] - - FLACA WEAVER STANDARD FORM 515 ID:[id number] SEX:M :1950 AGE: 73 LOC:[id number] ADM:Jun DX:DIVERTICULITIS PCP: Jatinder Cabrera /alexi/ EDUARDO PALOMARES MD STAFF PATHOLOGIST Signed: 07/06/2024 10:40 EDUARDO PALOMARES [facility] Jun 22, 2024 01:15 PM LR MICROBIOLOGY RE PORT: Reporting Lab: [facility] [CLIA# [id number]] [place] [place] [address] Accession [UID]: [id number] [[id number]] Received: Jun 22, 2024@13:38 Collection sample: FLUID Collection date: Jun 22, 2024 13:15 Provider: ANGELA HOLDEN Comment on specimen: LLQ ABSCESS, RECEIVED IN ANAEROBIC TRANSPORT VIAL Test(s) ordered: GRAM STAIN.................... completed: Jun 22, 2024 15:03 CULTURE & SUSCEPTIBILITY...... completed: Jun 25, 2024 * BACTERIOLOGY FINAL REPORT => Jun 25, 2024 10:56 TECH CODE: [id number] GRAM STAIN: DIRECT SMEAR of specimen before [...] Performed By: [facility] [CLIA# [id number]] [place] [address] [facility] Jun 22, 2024 01:15 PM LR MICROBIOLOGY RE PORT: Reporting Lab: [facility] [CLIA# [id number]] [place] [address] Accession [UID]: [id number] [[id number]] Received: Jun 22, 2024@13:38 Collection sample: FLUID Collection date: Jun 22, 2024 13:15 Provider: ANGELA HOLDEN Comment on specimen: LLQ ABSCESS, RECEIVED IN ANAEROBIC TRANSPORT VIAL Test(s) ordered: ANAEROBIC CULTURE............. completed: Jun 28, 2024 * BACTERIOLOGY FINAL REPORT => Jun 28, 2024 10:08 [facility] CODE: [id number] CULTURE RESULTS: HEAVY GROWTH MIXED ANAEROBES Comment: [...] Report Performed By: [facility] [IA# [id number]] [place] [address] [facility] Jun 21, 2024 06:12 PM LR MICROBIOLOGY RE PORT: Reporting Lab: [facility] [[facility]# [id number]] [place] [address] Accession [UID]: [id number] [[id number]] Received: Jun 21, 2024@18:12 Collection sample: BLOOD [...] Report Performed By: [facility] [[facility]# [id number]] [place] [address] [facility] Jun 21, 2024 06:11 PM LR MICROBIOLOGY RE PORT: Reporting Lab: [facility] [[facility]# [id number]] [place] [address] Accession [UID]: [id number] [[id number]] Received: Jun 21, 2024@18:11 Collection sample: BLOOD [...] Performed By: [facility] [CLIA# [id number]] [place] [address] [facility] Encounter Notes: All associated encounter notes This section contains the clinical notes associated to the Encounter. Date/Time Encounter Note(s) Provider Source Jul 10, 2024 12:54 PM REPORT OF CONTACT: LOCAL TITLE: APPOINTMENT SCHEDULING NOTE STANDARD TITLE: REPORT OF CONTACT DATE OF NOTE: JUL 10, 2024@12:54 ENTRY DATE: JUL 10, 2024@12:54:27 AUTHOR: SERGEY RIOS EXP COSIGNER: URGENCY: STATUS: COMPLETED Attempted to schedule Return to clinic (RTC) Contact attempt made to 1st attempt Telephone 2nd attempt Letter - Sent letter by regular [place] mail to address on file: [address], [place] [address] Disposition order request after Jun Left message on voice mail to call back to this number [phone] If [place] calls back, schedule appt for: Return to [facility] C/R TAWNYAONIAD[facility] POST OP on or around ( Jul 16, 2024 ) for a total of 1 appointment(s) Prerequisites: Labs (NON-FASTING) need CBC at f/u. Possible staple removal OD: 07/10/2024 /alexi/ SERGEY RIOS LEAD MSA Signed: 07/10/2024 12:54 SERGEY RIOS [facility]
--- OUTSIDE RECORDS SUMMARY | 2024-07-16 07:23 | XMS_ITS | Encounter Summary ---
Author Name [facility] [place] [facility] [facility] [place] Address [address] [place] [address] Care Team Providers Care Television Script Writer Name Role Phone JATINDER CABRERA Primary Care [...] PART A Sep 29, 2016 PART A [id number] [phone] JUDY WEAVER PATIENT Selected Encounter This section includes the information on record at [place] for the Encounter. Date/Time Encounter Type Encounter Description Reason Pro vider Source Jul 09, 2024 01:00 AM Inpatient Visit ADMIN PAT ACTIVTIES ([employer]) SYSTEM,CIS-ARK IHE Encounter Template Text not used [...] 13, 2024 08:15 AM [facility] Active, Pending, and Scheduled Orders [...] from all [facility]. Test Date/Time Test Type Test Details Facility Name May 28, 2024 12:00 AM Laboratory - Blood Bank Order TYPE & SCREEN - LAB BLOOD SP [facility] Jun 08, 2024 09:57 AM Laboratory - Chemi stry Order URINALYSIS URINE WC ONCE [facility] Jun 12, 2024 12:00 AM Laboratory - Chemi stry Order BNP PLASMA SP ONCE [facility] Jun 21, 2024 05:45 PM Laboratory - Blood Bank Order TYPE & SCREEN - LAB BLOOD WC [facility] Jul 03, 2024 12:00 AM Laboratory - Blood Bank Order TYPE & SCREEN - LAB BLOOD WC [facility] Jul 16, 2024 12:00 AM Laboratory - Chemi stry Order CBC BLOOD SP ONCE [facility] Jul 17, 2024 12:00 AM Laboratory - Chemi stry Order BASIC METABOLIC PANEL+MG PLASMA SP ONCE [facility] Lab Results: +/- 30 days [...] Range Comment Jul 10, 2024 07:16 AM [facility] PHOSPHORUS Specimen Type: PLASMA No comment entered. Ordering Provider: JUANCARLOS ECHOLS S Report Released Date/Time: Jul 09, 2024 12:23 PM Reporting Lab: [facility] [address] Performing Lab: [facility] [address] PHOSPHORUS 3.0 mg/dL 2.3-4.3 Jul 10, 2024 07:16 AM [facility] BASIC METABOLIC PANEL+MG Specimen Type: PLASMA No comment entered. Ordering Provider: JUANCARLOS ECHOLS S Report Released Date/Time: Jul 09, 2024 12:23 PM Reporting Lab: [facility] [address] Performing Lab: [facility] [address] CREATININE 0.7 mg/dL 0.7-1.2 UREA NITROGEN 27 mg/dL H 8-26 GLUCOSE 104 mg/dL H 70-100 SODIUM 133 mmol/L L 136-145 POTASSIUM 4.3 mmol/L 3.5-5.1 CHLORIDE 102 mmol/L 98-107 CO2 19 mmol/L L 22-29 CALCIUM 10.1 mg/dL 8.4-10.2 MAGNESIUM 1.9 mg/dL 1.6-2.6 ANION GAP 12 mmol/L 5-15 .CREAT EGFR(CKD-EPI) >90 >60 Jul 10, 2024 07:15 AM [facility] CBC Specimen Type: BLOOD No comment entered. Ordering Provider: JUANCARLOS ECHOLS S Report Released Date/Time: Jul 09, 2024 12:23 PM Reporting Lab: [facility] [address] Performing Lab: [facility] [address] WBC 18.8 H 4.0-11.0 RBC 5.08 4.60-6.20 HGB 15.9 g/dL 13.5-17.9 HCT 46.8 41.0-54.0 MCV 92.1 fL 80.0-100.0 MCH 31.3 pg 27.0-33.0 MCHC 34.0 g/dL 32.0-37.5 PLT 479 H 150-400 MPV 10.2 fL 9.1-13.0 RDW 13.7 11.5-14.5 Jul 09, 2024 07:08 AM [facility] CBC Specimen Type: BLOOD No comment entered. Ordering Provider: QUYNH WEISS Report Released Date/Time: Jul 08, 2024 06:18 PM Reporting Lab: [facility] [address] Performing Lab: [facility] [address] WBC 15.3 H 4.0-11.0 RBC 4.91 4.60-6.20 HGB 15.1 g/dL 13.5-17.9 HCT 45.7 41.0-54.0 MCV 93.1 fL 80.0-100.0 MCH 30.8 pg 27.0-33.0 MCHC 33.0 g/dL 32.0-37.5 PLT 443 H 150-400 MPV 10.0 fL 9.1-13.0 RDW 13.5 11.5-14.5 Jul 08, 2024 10:50 AM [facility] URINALYSIS Specimen Type: URINE No comment entered. Ordering Provider: KATELYNN PERSON Report Released Date/Time: Jul 08, 2024 08:41 AM Reporting Lab: [facility] [address] Performing Lab: [facility] [address] URINE COLOR YELLOW SPECIFIC GRAVITY >1.050 H [...] NEGATIVE NEGATIVE Jul 08, 2024 09:54 AM [facility] CBC Specimen Type: BLOOD Comment: Specimen received in Lab at: 0952 Ordering Provider: JUANCARLOS ECHOLS Report Released Date/Time: Jul 07, 2024 04:49 PM Reporting Lab: [facility] [address] Performing Lab: [facility] [address] WBC 17.5 H 4.0-11.0 RBC 4.88 4.60-6.20 HGB 14.9 g/dL 13.5-17.9 HCT 45.7 41.0-54.0 MCV 93.6 fL 80.0-100.0 MCH 30.5 pg 27.0-33.0 MCHC 32.6 g/dL 32.0-37.5 PLT 472 H 150-400 MPV 10.2 fL 9.1-13.0 RDW 13.7 11.5-14.5 Jul 08, 2024 09:54 AM [facility] PHOSPHORUS Specimen Type: PLASMA Comment: Specimen received in Lab at: 0952 Ordering Provider: JUANCARLOS ECHOLS S Report Released Date/Time: Jul 07, 2024 04:49 PM Reporting Lab: [facility] [address] Performing Lab: [facility] [address] PHOSPHORUS 2.6 mg/dL 2.3-4.3 Jul 08, 2024 09:54 AM [facility] BASIC METABOLIC PANEL+MG Specimen Type: PLASMA Comment: Specimen received in Lab at: 0952 Ordering Provider: JUANCARLOS ECHOLS S Report Released Date/Time: Jul 07, 2024 04:49 PM Reporting Lab: [facility] [address] Performing Lab: [facility] [address] CREATININE 0.9 mg/dL 0.7-1.2 UREA NITROGEN 26 mg/dL 8-26 GLUCOSE 128 mg/dL H 70-100 SODIUM 134 mmol/L L 136-145 POTASSIUM 3.4 mmol/L L 3.5-5.1 CHLORIDE 100 mmol/L 98-107 CO2 24 mmol/L 22-29 CALCIUM 9.8 mg/dL 8.4-10.2 MAGNESIUM 1.8 mg/dL 1.6-2.6 ANION GAP 10 mmol/L 5-15 .CREAT EGFR(CKD-EPI) >90 >60 Jul 07, 2024 02:00 PM [facility] C DIFF PANEL Specimen Type: FECES No comment entered. Ordering Provider: JEVON ZAZUETA Report Released Date/Time: Jul 07, 2024 12:26 PM Reporting Lab: [facility] [address] Performing Lab: [facility] [address] C DIFF TOX B GENE PCR NEGATIVE Negative Jul 07, 2024 07:41 AM [facility] PHOSPHORUS Specimen Type: PLASMA No comment entered. Ordering Provider: JEVON ZAZUETA Report Released Date/Time: Jul 06, 2024 03:44 PM Reporting Lab: [facility] [address] Performing Lab: [facility] [address] PHOSPHORUS 3.1 mg/dL 2.3-4.3 Jul 07, 2024 07:41 AM [facility] BASIC METABOLIC PANEL+MG Specimen Type: PLASMA No comment entered. Ordering Provider: JEVON ZAZUETA Report Released Date/Time: Jul 06, 2024 03:44 PM Reporting Lab: [facility] [address] Performing Lab: [facility] [address] CREATININE 0.9 mg/dL 0.7-1.2 UREA NITROGEN 20 mg/dL 8-26 GLUCOSE 157 mg/dL H 70-100 SODIUM 136 mmol/L 136-145 POTASSIUM 3.7 mmol/L 3.5-5.1 CHLORIDE 102 mmol/L 98-107 CO2 21 mmol/L L 22-29 CALCIUM 9.8 mg/dL 8.4-10.2 MAGNESIUM 1.9 mg/dL 1.6-2.6 ANION GAP 13 mmol/L 5-15 .CREAT EGFR(CKD-EPI) >90 >60 Jul 07, 2024 07:40 AM [facility] CBC Specimen Type: BLOOD No comment entered. Ordering Provider: JEVON ZAZUETA Report Released Date/Time: Jul 06, 2024 03:44 PM Reporting Lab: [facility] [address] Performing Lab: [facility] [address] WBC 21.2 H 4.0-11.0 RBC 5.09 4.60-6.20 HGB 15.9 g/dL 13.5-17.9 HCT 48.3 41.0-54.0 MCV 94.9 fL 80.0-100.0 MCH 31.2 pg 27.0-33.0 MCHC 32.9 g/dL 32.0-37.5 PLT 500 H 150-400 MPV 10.3 fL 9.1-13.0 RDW 13.6 11.5-14.5 Jul 06, 2024 07:21 AM [facility] CBC Specimen Type: BLOOD No comment entered. Ordering Provider: JEVON ZAZUETA Report Released Date/Time: Jul 05, 2024 01:22 PM Reporting Lab: [facility] [address] Performing Lab: [facility] [address] WBC 18.0 H 4.0-11.0 RBC 4.83 4.60-6.20 HGB 14.6 g/dL 13.5-17.9 HCT 45.5 41.0-54.0 MCV 94.2 fL 80.0-100.0 MCH 30.2 pg 27.0-33.0 MCHC 32.1 g/dL 32.0-37.5 PLT 368 150-400 MPV 10.4 fL 9.1-13.0 RDW 13.6 11.5-14.5 Jul 06, 2024 07:21 AM [facility] PHOSPHORUS Specimen Type: PLASMA No comment entered. Ordering Provider: JEVON ZAZUETA Report Released Date/Time: Jul 05, 2024 01:22 PM Reporting Lab: [facility] [address] Performing Lab: [facility] [address] PHOSPHORUS 3.6 mg/dL 2.3-4.3 Jul 06, 2024 07:21 AM [facility] BASIC METABOLIC PANEL+MG Specimen Type: PLASMA No comment entered. Ordering Provider: JEVON ZAZUETA Report Released Date/Time: Jul 05, 2024 01:22 PM Reporting Lab: [facility] [address] Performing Lab: [facility] [address] CREATININE 0.7 mg/dL 0.7-1.2 UREA NITROGEN 12 mg/dL 8-26 GLUCOSE 108 mg/dL H 70-100 SODIUM 138 mmol/L 136-145 POTASSIUM 3.4 mmol/L L 3.5-5.1 CHLORIDE 104 mmol/L 98-107 CO2 20 mmol/L L 22-29 CALCIUM 9.3 mg/dL 8.4-10.2 MAGNESIUM 1.9 mg/dL 1.6-2.6 ANION GAP 14 mmol/L 5-15 .CREAT EGFR(CKD-EPI) >90 >60 Jul 05, 2024 07:17 AM [facility] MAGNESIUM Specimen Type: PLASMA No comment entered. Ordering Provider: JUANCARLOS ECHOLS S Report Released Date/Time: Jul 04, 2024 09:39 AM Reporting Lab: [facility] [address] Performing Lab: [facility] [address] MAGNESIUM 2.0 mg/dL 1.6-2.6 Jul 05, 2024 07:17 AM [facility] PHOSPHORUS Specimen Type: PLASMA No comment entered. Ordering Provider: JUANCARLOS ECHOLS S Report Released Date/Time: Jul 04, 2024 09:39 AM Reporting Lab: [facility] [address] Performing Lab: [facility] [address] PHOSPHORUS 2.0 mg/dL L 2.3-4.3 Jul 05, 2024 07:17 AM [facility] BASIC METABOLIC PANEL+MG Specimen Type: PLASMA No comment entered. Ordering Provider: JUANCARLOS ECHOLS S Report Released Date/Time: Jul 04, 2024 09:39 AM Reporting Lab: [facility] [address] Performing Lab: [facility] [address] CREATININE 0.7 mg/dL 0.7-1.2 UREA NITROGEN 12 mg/dL 8-26 GLUCOSE 84 mg/dL 70-100 SODIUM 135 mmol/L L 136-145 POTASSIUM 3.8 mmol/L 3.5-5.1 CHLORIDE 104 mmol/L 98-107 CO2 24 mmol/L 22-29 CALCIUM 9.3 mg/dL 8.4-10.2 MAGNESIUM 2.0 mg/dL 1.6-2.6 ANION GAP 7 mmol/L 5-15 .CREAT EGFR(CKD-EPI) >90 >60 Jul 05, 2024 07:16 AM [facility] CBC Specimen Type: BLOOD No comment entered. Ordering Provider: JUANCARLOS ECHOLS S Report Released Date/Time: Jul 04, 2024 09:39 AM Reporting Lab: [facility] [address] Performing Lab: [facility] [address] WBC 18.3 H 4.0-11.0 RBC 4.49 L 4.60-6.20 HGB 14.1 g/dL 13.5-17.9 HCT 43.4 41.0-54.0 MCV 96.7 fL 80.0-100.0 MCH 31.4 pg 27.0-33.0 MCHC 32.5 g/dL 32.0-37.5 PLT 317 150-400 MPV 10.0 fL 9.1-13.0 RDW 13.9 11.5-14.5 Jul 04, 2024 07:17 AM [facility] BASIC METABOLIC PANEL+MG Specimen Type: PLASMA No comment entered. Ordering Provider: GABINO CAMERON Report Released Date/Time: Jul 03, 2024 06:31 PM Reporting Lab: [facility] [address] Performing Lab: [facility] [address] CREATININE 0.7 mg/dL 0.7-1.2 UREA NITROGEN 16 mg/dL 8-26 GLUCOSE 129 mg/dL H 70-100 SODIUM 137 mmol/L 136-145 POTASSIUM 3.7 mmol/L 3.5-5.1 CHLORIDE 107 mmol/L 98-107 CO2 22 mmol/L 22-29 CALCIUM 9.0 mg/dL 8.4-10.2 MAGNESIUM 1.9 mg/dL 1.6-2.6 ANION GAP 8 mmol/L 5-15 .CREAT EGFR(CKD-EPI) >90 >60 Jul 04, 2024 07:17 AM [facility] PHOSPHORUS Specimen Type: PLASMA No comment entered. Ordering Provider: GABINO CAMERON Report Released Date/Time: Jul 03, 2024 06:31 PM Reporting Lab: [facility] [address] Performing Lab: [facility] [address] PHOSPHORUS 2.8 mg/dL 2.3-4.3 Jul 04, 2024 07:16 AM [facility] CBC Specimen Type: BLOOD No comment entered. Ordering Provider: GABINO CAMERON Report Released Date/Time: Jul 03, 2024 06:31 PM Reporting Lab: [facility] [address] Performing Lab: [facility] [address] WBC 20.6 H 4.0-11.0 RBC 4.63 4.60-6.20 HGB 14.2 g/dL 13.5-17.9 HCT 43.4 41.0-54.0 MCV 93.7 fL 80.0-100.0 MCH 30.7 pg 27.0-33.0 MCHC 32.7 g/dL 32.0-37.5 PLT 329 150-400 MPV 10.4 fL 9.1-13.0 RDW 13.8 11.5-14.5 Jul 04, 2024 07:16 AM [facility] CBC & DIFF Specimen Type: BLOOD Comment: Manual Differential Performed Ordering Provider: GABINO CAMERON Report Released Date/Time: Jul 03, 2024 06:31 PM Reporting Lab: [facility] [address] Performing Lab: [facility] [address] WBC 20.6 H 4.0-11.0 RBC 4.63 4.60-6.20 [...] MORPHOLOGY PRESENT Jul 04, 2024 07:15 AM [facility] BNP Specimen Type: PLASMA No comment entered. Ordering Provider: GABINO CAMERON Report Released Date/Time: Jul 03, 2024 06:31 PM Reporting Lab: [facility] [address] Performing Lab: [facility] [address] BNP 292 pg/mL H <99 Jul 03, 2024 10:32 PM [facility] FINGERSTICK GLUCOSE Specimen Type: BLOOD Comment: Save Result Nurse Notified Ordering Provider: KATELYNN PERSON Report Released Date/Time: Jul 03, 2024 10:50 PM Reporting Lab: [facility] [address] Performing Lab: [facility] [address] FINGERSTICK GLUCOSE 126 mg/dL H 70-100 Jul 03, 2024 05:33 PM [facility] FINGERSTICK GLUCOSE Specimen Type: BLOOD Comment: Save Result Nurse Notified Ordering Provider: KATELYNN PERSON Report Released Date/Time: Jul 03, 2024 05:46 PM Reporting Lab: [facility] [address] Performing Lab: [facility] [address] FINGERSTICK GLUCOSE 141 mg/dL H 70-100 Jul 03, 2024 02:31 PM [facility] POC ABG/ELECTROLYTES Specimen Type: ARTERIAL BLOOD Comment: FIO2 = 97% Patient Temp: 36.0 C Sample Type = ARTERIAL Ordering Provider: MAZIN ARREDONDO Report Released Date/Time: Jul 03, 2024 01:48 PM Reporting Lab: [facility] [address] Performing Lab: [facility] [address] POC PH 7.387 7.35-7.45 POC PCO2 34.4 [...] H 80.0-105.0 Jul 03, 2024 01:05 PM [facility] POC ABG/ELECTROLYTES Specimen Type: ARTERIAL BLOOD Comment: FIO2 = 53% Patient Temp: 36.2 C Sample Type = ARTERIAL Ordering Provider: MAZIN ARREDONDO Report Released Date/Time: Jul 03, 2024 01:48 PM Reporting Lab: [facility] [address] Performing Lab: [facility] [address] POC PH 7.280 L 7.35-7.45 POC PCO2 [...] mm[Hg] 80.0-105.0 Jul 03, 2024 06:15 AM [facility] URINALYSIS Specimen Type: URINE No comment entered. Ordering Provider: MARYBETH POWELL Report Released Date/Time: Jun 12, 2024 04:01 PM Reporting Lab: [facility] [address] Performing Lab: [facility] [address] URINE COLOR YELLOW SPECIFIC GRAVITY 1.031 1.003-1.03 [...] 250 NEGATIVE Jul 03, 2024 06:13 AM [facility] CBC Specimen Type: BLOOD No comment entered. Ordering Provider: MARYBETH POWELL Report Released Date/Time: Jun 12, 2024 03:59 PM Reporting Lab: [facility] [address] Performing Lab: [facility] [address] WBC 15.8 H 4.0-11.0 RBC 5.11 4.60-6.20 HGB 16.1 g/dL 13.5-17.9 HCT 49.1 41.0-54.0 MCV 96.1 fL 80.0-100.0 MCH 31.5 pg 27.0-33.0 MCHC 32.8 g/dL 32.0-37.5 PLT 357 150-400 MPV 9.8 fL 9.1-13.0 RDW 13.7 11.5-14.5 Jun 24, 2024 09:50 AM [facility] BASIC METABOLIC PANEL+MG Specimen Type: PLASMA Comment: Specimen received in Lab at: 0948 Ordering Provider: JEVON ZAZUETA Report Released Date/Time: Jun 23, 2024 06:07 PM Reporting Lab: [facility] [address] Performing Lab: [facility] [address] CREATININE 0.8 mg/dL 0.7-1.2 UREA NITROGEN 13 mg/dL 8-26 GLUCOSE 135 mg/dL H 70-100 SODIUM 135 mmol/L L 136-145 POTASSIUM 3.6 mmol/L 3.5-5.1 CHLORIDE 103 mmol/L 98-107 CO2 24 mmol/L 22-29 CALCIUM 9.2 mg/dL 8.4-10.2 MAGNESIUM 1.9 mg/dL 1.6-2.6 ANION GAP 8 mmol/L 5-15 .CREAT EGFR(CKD-EPI) >90 >60 Jun 24, 2024 09:50 AM [facility] CBC Specimen Type: BLOOD Comment: Specimen received in Lab at: 0948 Ordering Provider: JEVON ZAZUETA Report Released Date/Time: Jun 23, 2024 06:07 PM Reporting Lab: [facility] [address] Performing Lab: [facility] [address] WBC 15.5 H 4.0-11.0 RBC 4.93 4.60-6.20 HGB 15.2 g/dL 13.5-17.9 HCT 46.5 41.0-54.0 MCV 94.3 fL 80.0-100.0 MCH 30.8 pg 27.0-33.0 MCHC 32.7 g/dL 32.0-37.5 PLT 223 150-400 MPV 11.4 fL 9.1-13.0 RDW 13.9 11.5-14.5 Jun 23, 2024 07:52 AM [facility] COMPREHENSIVE METABOLIC PANEL+MG Specimen Type: PLASMA No comment entered. Ordering Provider: JEVON ZAZUETA Report Released Date/Time: Jun 22, 2024 05:51 PM Reporting Lab: [facility] [address] Performing Lab: [facility] [address] CREATININE 0.7 mg/dL 0.7-1.2 UREA NITROGEN 16 [...] >90 >60 Jun 23, 2024 07:52 AM [facility] CBC & DIFF Specimen Type: BLOOD Comment: Automated Differential Performed Ordering Provider: JEVON ZAZUETA Report Released Date/Time: Jun 22, 2024 05:51 PM Reporting Lab: [facility] [address] Performing Lab: [facility] [address] WBC 14.9 H 4.0-11.0 RBC 5.09 4.60-6.20 [...] 0.1 0.0-0.1 Jun 22, 2024 06:10 PM [facility] CBC Specimen Type: BLOOD No comment entered. Ordering Provider: JEVON ZAZUETA Report Released Date/Time: Jun 22, 2024 05:51 PM Reporting Lab: [facility] [address] Performing Lab: [facility] [address] WBC 16.9 H 4.0-11.0 RBC 5.28 4.60-6.20 HGB 16.9 g/dL 13.5-17.9 HCT 50.4 41.0-54.0 MCV 95.5 fL 80.0-100.0 MCH 32.0 pg 27.0-33.0 MCHC 33.5 g/dL 32.0-37.5 PLT 223 150-400 MPV 10.9 fL 9.1-13.0 RDW 14.0 11.5-14.5 Jun 22, 2024 06:10 PM [facility] COMPREHENSIVE METABOLIC PANEL+MG Specimen Type: PLASMA No comment entered. Ordering Provider: JEVON ZAZUETA Report Released Date/Time: Jun 22, 2024 05:51 PM Reporting Lab: [facility] [address] Performing Lab: [facility] [address] CREATININE 0.7 mg/dL 0.7-1.2 UREA NITROGEN 17 [...] >90 >60 Jun 21, 2024 06:48 PM [facility] URINALYSIS Specimen Type: URINE No comment entered. Ordering Provider: DELIA MARTINEZ Report Released Date/Time: Jun 21, 2024 05:45 PM Reporting Lab: [facility] [address] Performing Lab: [facility] [address] URINE COLOR YELLOW SPECIFIC GRAVITY 1.041 H [...] 500 NEGATIVE Jun 21, 2024 05:34 PM [facility] POC CREATININE Specimen Type: BLOOD No comment entered. Ordering Provider: DELIA MARTINEZ Report Released Date/Time: Jun 21, 2024 06:07 PM Reporting Lab: [facility] [address] Performing Lab: [facility] [address] POC CREATININE 1.1 mg/dL 0.6-1.3 Jun 21, 2024 05:30 PM [facility] POC ABG/LACTATE Specimen Type: VENOUS BLOOD No comment entered. Ordering Provider: DELIA MARTINEZ Report Released Date/Time: Jun 21, 2024 06:07 PM Reporting Lab: [facility] [address] Performing Lab: [facility] [address] POC PH 7.470 H 7.31-7.41 POC PCO2 31.2 mm[Hg] L 41.00-51 .0 0 POC PO2 46 mm[Hg] H 35.0-40.0 POC TCO2 24 mmol/L 24.0-29.0 POC HCO3 22.7 mmol/L L 23.0-28.0 POC BE ECT -1 mmol/L POC SO2 85 H 70-75 POC LACTATE 1.85 mmol/L 0.90-1.70 Jun 21, 2024 05:24 PM [facility] PROTHROMBIN TIME/INR Specimen Type: PLASMA No comment entered. Ordering Provider: DELIA MARTINEZ Report Released Date/Time: Jun 21, 2024 05:30 PM Reporting Lab: [facility] [address] Performing Lab: [facility] [address] .INR 1.2 H 0.8-1.1 .PT 13.9 s H 9.4-12.5 Jun 21, 2024 05:24 PM [facility] LIPASE Specimen Type: PLASMA No comment entered. Ordering Provider: DELIA MARTINEZ Report Released Date/Time: Jun 21, 2024 05:30 PM Reporting Lab: [facility] [address] Performing Lab: [facility] [address] LIPASE 32 U/L <60 Jun 21, 2024 05:24 PM [facility] EXTRA GOLD GEL TUBE Specimen Type: SERUM No comment entered. Ordering Provider: DELIA MARTINEZ Report Released Date/Time: Jun 21, 2024 05:41 PM Reporting Lab: [facility] [address] Performing Lab: [facility] [address] EXTRA GOLD GEL TUBE RECEIVED Jun 21, 2024 05:24 PM [facility] COMPREHENSIVE METABOLIC PANEL+MG Specimen Type: PLASMA No comment entered. Ordering Provider: DELIA MARTINEZ Report Released Date/Time: Jun 21, 2024 05:30 PM Reporting Lab: [facility] [address] Performing Lab: [facility] [address] CREATININE 0.9 mg/dL 0.7-1.2 UREA NITROGEN 29 [...] mg/dL <0.5 Jun 21, 2024 05:24 PM [facility] CBC & DIFF Specimen Type: BLOOD Comment: Manual Differential Performed Ordering Provider: DELIA MARTINEZ Report Released Date/Time: Jun 21, 2024 05:30 PM Reporting Lab: [facility] [address] Performing Lab: [facility] [address] WBC 21.3 H 4.0-11.0 RBC 5.48 4.60-6.20 [...] 11:47 PM 97.9 59 151/73 18 98 [facility] Jul 09, 2024 04:39 PM 97.5 55 120/65 18 97 0 [facility] Jul 09, 2024 09:36 AM 98.1 67 134/78 16 99 1 [facility] Jul 09, 2024 05:09 AM 1 [facility] Jul 09, 2024 03:28 AM 5 [facility] Social History: Smoking Status (Most [...] 15, 2024 08:30 AM VA-TOBACCO FORMER USER [facility] Tobacco Use History This section includes a history of the smoking, or tobacco-related health factors, that were collected on or before the date of the Encounter. The data comes from the [place] facility where the Encounter took place. Date/Time Smoking Status/Tobacco Use Comment F acility May 15, 2024 08:30 AM VA-TOBACCO QUIT 15 YRS OR MORE [facility] May 06, 2023 11:30 AM VA-TOBACCO FORMER USER [facility] May 06, 2023 11:30 AM VA-TOBACCO QUIT 15 YRS OR MORE [facility] Jun 04, 2022 09:00 AM VA-TOBACCO FORMER USER [facility] Jun 04, 2022 09:00 AM VA-TOBACCO QUIT 15 YRS OR MORE [facility] Jul 10, 2021 08:00 AM VA-TOBACCO FORMER USER [facility] Jul 10, 2021 08:00 AM VA-TOBACCO QUIT 5 TO < 15 YRS [facility] May 23, 2020 08:30 AM VA-TOBACCO FORMER USER [facility] May 23, 2020 08:30 AM VA-TOBACCO QUIT 5 TO < 15 YRS [facility] Mar 20, 2019 04:03 PM VA-TOBACCO FORMER USER [facility] Mar 20, 2019 04:03 PM VA-TOBACCO QUIT 5 TO < 15 YRS [facility] Mar 21, 2018 08:13 AM FORMER TOBACCO USER 7Y OR GREATE R [facility] Feb 24, 2017 09:24 AM FORMER TOBACCO USER 7Y OR GREATE R [facility] January 07, 2016 08:01 AM FORMER TOBACCO USE >1Y <7Y [facility] Feb 03, 2015 07:58 AM FORMER TOBACCO USE <1Y [facility] Feb 26, 2014 08:41 AM CURRENT TOBACCO USER [facility] May 13, 2011 01:45 PM CURRENT TOBACCO USER [facility] Advance Directives: All historical and [...] CLINICAL WARNING [facility] Radiology Reports: +/- 30 days [...] VIEWS PA A ND LAT: FLACA WEAVER [id number] -[id number] M Exm Date: JUL 08, 2024@10:09 Req Phys: KATELYNN PERSON Pat Loc: 2KG/07-08-2024@11:49 Img Loc: MAIN X-RAY Service: [place] [address] (Case 24 COMPLETE) CHEST 2 VIEWS PA AND LAT (RAD Detailed) CPT:19734 Reason for Study: Uptrending WBC, POD 5 Clinical History: [place] IS NOT under investigation for COVID-19 or is COVID-19 negative POD 5, work up for uptrending wbc Responsible provider name and phone number to notify for critical findings if other than user placing the order and pager listed below: User placing orders pager: Katelynn Person LAST CREATININE 0.9 (07/07/24) Report Status: Verified Date Reported: JUL 08, 2024 Date Verified: JUL 08, 2024 Photogrammetric Stereo Compiler E-Sig: Report: CHEST 2 VIEWS PA AND [...] cardiopulmonary disease. READING PHYSICIAN: Sarbjit Vaughn M.D. -[id number] 07/08/2024 12:46 EST [facility] National Teleradiology Program [phone] (For Medical Practitioner Use Only) Attention Patients / Veterans: If you have questions or concerns about these test results, please contact your ordering provider or primary care team. Primary Interpreting Staff: RADIOLOGY,OUTSIDE SERVICE, Staff Physician / RADIOLOGY,OUTSIDE SERVICE [facility] Jul 08, 2024 10:[address] (AP) ABDOMEN/PE LVIS W CONTRAST: FLACA WEAVER YAMIL [id number] -1950 M Exm Date: JUL 08, 2024@10:00 Req Phys: KATELYNN PERSON [facility] Loc: 2KG/07-08-2024@12:07 Img Loc: CT IMAGING Service: [place] [address] (Case 22 COMPLETE) CT (AP) ABDOMEN/PELVIS W CONTRAST(CT Detailed) CPT:72695 Contrast Media : Non-ionic Iodinated Reason for [...] PLASMA .CREAT EGFR(CKD-E >90 Ref: >=60 Allergies: ([facility] only) TERAZOSIN (Mar 13, 2015) Report Status: Verified Date Reported: JUL 08, 2024 Date Verified: JUL 08, 2024 Photogrammetric Stereo Compiler E-Sig: Report: CT (AP) ABDOMEN/PELVIS W CONTRAST [...] as noted above READING PHYSICIAN: Celestino Blanc -[phone] 07/08/2024 13:04 EST [facility] [phone] (For Medical Practitioner Use Only) Attention Patients / Veterans: If you have questions or concerns about these test results, please contact your ordering provider or primary care team. Primary Interpreting Staff: RADIOLOGY,OUTSIDE SERVICE, Staff Physician / RADIOLOGY,OUTSIDE SERVICE [facility] Jun 22, 2024 11:49 AM ABSCESS DRAIN PLAC EMENT PERITONEAL (P): FLACA WEAVER [id number] -1950 M Exm Date: JUN 22, 2024@11:49 Req Phys: ANGELA HOLDEN Pat Loc: [facility]/06-22-2024@17:14 Img Loc: INTERVENTIONAL RADIOLOGY Service: [place] [address] (Case [id number] COMPLETE) IR PERITONEAL/RETROPERITONEAL PER(ANI Detailed) CPT:36449 Reason for Study: diverticulitis with abscess (Case 3570 COMPLETE) IR MOD SEDATION 10-22 MIN (ANI Detailed) CPT:75814 Clinical History: IS NOT under investigation for COVID-19 or is COVID-19 negative 73 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 please place abscess drain. Contact number for responsible provider who can be reached for any questions or notifications of critical findings: [phone] n/a LAST CREATININE 0.9 (06/21/24) Report Status: Verified Date Reported: JUN 22, 2024 Date Verified: JUN 22, 2024 Photogrammetric Stereo Compiler E-Sig:/ES/LISA PENDLETON MD Report: PROCEDURES: Placement of [...] obtained. A pre-procedural Time-Out was performed per [facility] policy. The patient was placed in the supine position on the CT table. Preprocedural scan performed. The suprapubic region/lower abdominal wall was sterilely prepped and draped in the usual fashion.1% lidocaine without epinephrine was used for local anesthesia. Using real-time CT fluoroscopy, a 5 Cymro TRUECaresis catheter was advanced into the collection in the left pelvis. A wire was coiled in the collection. The tract into the collection was dilated to accommodate the 12 Cymro locking pigtail drainage catheter. There was return [...] Primary Interpreting Staff: LISA PENDLETON MD, RADIOLOGIST (Photogrammetric Stereo Compiler) /JRLISA [facility] Jun 22, 2024 11:[address] NEEDLE PLACEMEN T (P): FLACA WEAVER [id number] -1950 M Exm Date: JUN 22, 2024@11:48 Req Phys: ANGELA HOLDEN Loc: [facility]06-22-2024@17:14 Img Loc: CT IMAGING Service: [place] [address] (Case [id number] COMPLETE) CT SCAN FOR NEEDLE PLACEMENT (CT Detailed) CPT:19019 Reason for Study: l pelvic abscess drain Clinical History: Report Status: Verified Date Reported: JUN 22, 2024 Date Verified: JUN 22, 2024 Photogrammetric Stereo Compiler E-Sig:/ES/LISA PENDLETON MD Report: PROCEDURES: Placement of [...] obtained. A pre-procedural Time-Out was performed per [facility] policy. The patient was placed in the supine position on the CT table. Preprocedural scan performed. The suprapubic region/lower abdominal wall was sterilely prepped and draped in the usual fashion.1% lidocaine without epinephrine was used for local anesthesia. Using real-time CT fluoroscopy, a 5 Cymro TRUECaresis catheter was advanced into the collection in the left pelvis. A wire was coiled in the collection. The tract into the collection was dilated to accommodate the 12 Cymro locking pigtail drainage catheter. There was return [...] Primary Interpreting Staff: LISA PENDLETON MD, RADIOLOGIST (Photogrammetric Stereo Compiler) /JRT LISA PENDLETON [facility] Jun 21, 2024 06:[address] (AP) ABDOMEN/PE LVIS (P): FLACA WEAVER [id number] -1950 M Exm Date: JUN 21, 2024@18:09 Req Phys: DELIA MARTINEZ Loc: [facility]ALK-[facility] (Re Img Loc: CT IMAGING Service: [place] [address] (Case [id number] COMPLETE) CT (AP) ABDOMEN/PELVIS W CONTRAST(CT Detailed) CPT:76063 Contrast Media : Non-ionic Iodinated Reason for [...] PLASMA .CREAT EGFR(CKD-E >90 Ref: >=60 Allergies: ([facility] only) TERAZOSIN (Mar 13, 2015) Defer to [...] 21, 2024 Date Verified: JUN 21, 2024 Photogrammetric Stereo Compiler E-Sig:/ALEXI/CARLOS A CUNNINGHAM DO Report: EXAMINATION: CT [...] Interpreting Staff: CARLOS A CUNNINGHAM DO, RADIOLOGIST (Photogrammetric Stereo Compiler) /CARLOS A ROWELL [facility] Pathology Reports: +/- 30 days [...] COSIGNER: URGENCY: STATUS: COMPLETED $APHDR Reporting Lab: [facility] [CLIA# [id number]] [place] [address] - - - - - - - [...] - PATHOLOGY REPORT Accession No. [id number] - - - - - - - [...] - PATHOLOGY REPORT Accession No. [id number] - - - - - - - [...] Second circumferential surgical margin, en face; E-F: Auditor Supervisor diverticula; G: Auditor Supervisor section of mesentery; H: Random dental sales representative section of additional adipose tissue [...] One colonic tissue ring, bisected transversely. [facility] MICROSCOPIC DESCRIPTION: Microscopic examination performed. DIAGNOSIS: 1. Colon, sigmoid, sigmoidectomy-- - Diverticulosis with perforation and focal abscess formation 2. Colon, anastomotic rings, excision-- - Viable colonic mucosa without diagnostic abnormality /es/ EDUARDO PALOMARES MD STAFF PATHOLOGIST Signed Jul 06, 2024@10:40 Performing Laboratory: Surgical Pathology Report Performed By: [facility] [CLIA# [id number]] [place] [address] $FTR - - - - - - [...] - - FLACA WEAVER STANDARD FORM 515 ID:[id number] SEX:M :1950 AGE: 73 LOC:03072 ADM:Jun DX:DIVERTICULITIS PCP: Jatinder Cabrera /alexi/ EDUARDO PALOMARES MD STAFF PATHOLOGIST Signed: 07/06/2024 10:40 EDUARDO PALOMARES [facility] Jun 22, 2024 01:15 PM LR MICROBIOLOGY RE PORT: Reporting Lab: [facility] [CLIA# [id number]] [place] [address] Accession [UID]: [id number] [[id number]] Received: Jun 22, 2024@13:38 Collection sample: FLUID Collection date: Jun 22, 2024 13:15 Provider: ANEGLA HOLDEN Comment on specimen: LLQ ABSCESS, RECEIVED IN ANAEROBIC TRANSPORT VIAL Test(s) ordered: GRAM STAIN.................... completed: Jun 22, 2024 15:03 CULTURE & SUSCEPTIBILITY...... completed: Jun 25, 2024 * BACTERIOLOGY FINAL REPORT => Jun 25, 2024 10:56 TECH CODE: [id number] GRAM STAIN: DIRECT SMEAR of specimen before [...] -=--=--=--=--=--=--=-- Performing Laboratory: Bacteriology Report Performed By: [facility] [CLIA# [id number]] [place] [address] [facility] Jun 22, 2024 01:15 PM LR MICROBIOLOGY RE PORT: Reporting Lab: [facility] [CLIA# [id number]] [place] [address] Accession [UID]: [id number] [[id number]] Received: Jun 22, 2024@13:38 Collection sample: FLUID Collection date: Jun 22, 2024 13:15 Provider: ANGELA HOLDEN Comment on specimen: LLQ ABSCESS, RECEIVED IN ANAEROBIC TRANSPORT VIAL Test(s) ordered: ANAEROBIC CULTURE............. completed: Jun 28, 2024 * BACTERIOLOGY FINAL REPORT => Jun 28, 2024 10:08 TECH CODE: [id number] CULTURE RESULTS: HEAVY GROWTH MIXED ANAEROBES Comment: including the followin+ Bacteroides fragilis 4+ Bacteroides vulgatus 4+ Clostridium innocuum Beta-lactamase negative 4+ Bacteroides caccae 4+ Parvimonas micra 4+ Bacteroides uniformis 4+ Gemella morbillorum 4+ anaerobic small, Gram Positive Rods 4+ Bacteroides thetaiotaomicron Standard workup is now complete. Bacteriology Remark(s): THIS REPORT IS FINAL =--=--=--=--=--=--=--=--=--= --=--=--=--=--=--=--=--=--=- -=--=--=--=--=--=--=-- Performing Laboratory: Bacteriology Report Performed By: [facility] [CLIA# [id number]] [place] [address] [facility] Jun 21, 2024 06:12 PM LR MICROBIOLOGY RE PORT: Reporting Lab: [facility] [CLIA# [id number]] [place] [address] Accession [UID]: [id number] [[id number]] Received: Jun 21, 2024@18:12 Collection sample: BLOOD [...] -=--=--=--=--=--=--=-- Performing Laboratory: Bacteriology Report Performed By: [facility] [CLIA# [id number]] [place] [address] [facility] Jun 21, 2024 06:11 PM LR MICROBIOLOGY RE PORT: Reporting Lab: [facility] [CLIA# [id number]] [place] [address] Accession [UID]: [id number] [[id number]] Received: Jun 21, 2024@18:11 Collection sample: BLOOD [...] -=--=--=--=--=--=--=-- Performing Laboratory: Bacteriology Report Performed By: [facility] [CLIA# [id number]] [place] [address] [facility] Encounter Notes: All associated encounter notes This section contains the clinical notes associated to the Encounter. Date/Time Encounter Note(s) Provider Source Jul 09, 2024 01:00 AM CRITICAL CARE UNIT NOTE: LOCAL TITLE: [facility] INPATIENT FLOWSHEET STANDARD TITLE: CRITICAL CARE UNIT NOTE DATE OF NOTE: JUL 09, 2024@01:00 ENTRY DATE: JUL 10, 2024@14:33:20 AUTHOR: KELLY WINKLER EXP COSIGNER: URGENCY: STATUS: COMPLETED This is a place aranda only. Please see Platial to view document. /es/ [facility]ers SYSTEM ICU DOCUMENT IMPORT Signed: 07/10/2024 14:33 KELLY WINKLER [facility] Jul 09, 2024 01:00 AM CRITICAL CARE UNIT NOTE: LOCAL TITLE: [facility] RESPIRATORY THERAPY FLOWSHEET STANDARD TITLE: CRITICAL CARE UNIT NOTE DATE OF NOTE: JUL 09, 2024@01:00 ENTRY DATE: JUL 10, 2024@15:05:37 AUTHOR: KELLY WINKLER EXP COSIGNER: URGENCY: STATUS: COMPLETED This is a place aranda only. Please see Platial to view document. /es/ [facility]UDLEY-CHRISTOPHER SYSTEM ICU DOCUMENT IMPORT Signed: 07/10/2024 15:05 KELLY WINKLER [facility]
--- OUTSIDE RECORDS SUMMARY | 2024-07-16 07:24 | XMS_ITS | Encounter Summary ---
Author Name [facility] Organization [facility] Address [address] [place] [address] Care Team Providers Care Mechanical Designer Name Role Phone JATINDER CABRERA Primary Care [...] PART A Sep 29, 2016 PART A [phone] JUDY WEAVER PATIENT Selected Encounter This section includes the information on record at [place] for the Encounter. Date/Time Encounter Type Encounter Description Reason Pro vider Source May 04, 2024 08:18 AM Outpatient Encounter CLINICAL PHARMACY I[facility] Encounter Template Text not used by [place] [...] Appointment Type Appointme nt Facility Name May 07, 2024 08:45 AM [place]IC[place] [facility] May 08, 2024 02:00 PM AM[place]ORY - NONE [place] [facility] May 09, 2024 07:30 AM [place] [facility] May 11, 2024 01:00 PM [place]ONE [place] [facility] May 11, 2024 03:30 PM AM[place]ORY [place]ONE [place] [facility] May 15, 2024 08:30 AM [place] [facility] May 16, 2024 07:45 AM [place] [facility] May 22, 2024 07:30 AM [place]ORY [place]ONE [place] [facility] May 22, 2024 05:30 PM [place]ORY - NONE [place] [facility] May 25, 2024 08:22 AM AM[place]ORY - NONE [place] [facility] May 25, 2024 09:00 AM [place]ORY - [place]ONE [place] [facility] May 28, 2024 08:15 AM [place] [facility] Jun 04, 2024 11:30 AM [place]ORY [place]ONE [place] [facility] Jun 08, 2024 11:00 AM [place] [facility] Jun 08, 2024 12:45 PM [place]ORY - NONE [place] [facility] Jun 08, 2024 01:15 PM [place]IC[place] [facility] Jun 08, 2024 01:45 PM [place] [facility] Jun 21, 2024 04:48 PM [place]IC[place] [facility] Jun 21, 2024 05:45 PM [place]ORY - [place]ONE [place] [facility] Jun 27, 2024 07:00 AM [place] [facility] Active, Pending, and Scheduled Orders This [...] WC ONCE [facility] Jun 12, 2024 12:00 AM Laboratory - Chemistry Order BNP PLASMA SP ONCE [facility] Lab [...] May 15, 2024 08:34 AM Reporting Lab: [facility] [address] Performing Lab: [facility] [id number] CREATININE 0.9 mg/dL 0.7-1.2 UREA NITROGEN 18 [...] May 03, 2024 12:52 PM Reporting Lab: [facility] [address] Performing Lab: [facility] [address] CREATININE 0.7 mg/dL 0.7-1.2 UREA NITROGEN 13 [...] Apr 25, 2024 02:50 PM Reporting Lab: [facility] [address] Performing Lab: [facility] [address] CREATININE 0.7 mg/dL 0.7-1.2 UREA NITROGEN 15 [...] Apr 25, 2024 05:04 PM Reporting Lab: [facility] [address] Performing Lab: [facility] [address] CREATININE 0.7 mg/dL 0.7-1.2 UREA NITROGEN 15 [...] Apr 24, 2024 12:37 PM Reporting Lab: [facility] [address] Performing Lab: [facility] [address] CREATININE 0.7 mg/dL 0.7-1.2 UREA NITROGEN 14 [...] Apr 24, 2024 12:37 PM Reporting Lab: [facility] [address] Performing Lab: [facility] [address] CREATININE 0.7 mg/dL 0.7-1.2 UREA NITROGEN 16 [...] Value Reported To: Cait Zamorano RN 04-24-24@[address] [place] [address]. Critical value report confirmed. Ordering Provider: AARON VICTOR Report Released Date/Time: Apr 23, 2024 05:30 PM Reporting Lab: [facility] [address] Performing Lab: [facility] [address] CREATININE 0.7 mg/dL 0.7-1.2 UREA NITROGEN 16 [...] Comment: Automated Differential Performed Ordering Provider: AARON VITCOR Report Released Date/Time: Apr 23, 2024 05:30 PM Reporting Lab: [facility] [address] Performing Lab: [facility] [address] WBC 10.49 10*3/uL 4.0-11.0 RBC 3.83 10*6/uL [...] Apr 23, 2024 12:05 PM Reporting Lab: [facility] [address] Performing Lab: [facility] [address] LACTIC ACID 1.5 mmol/L 0.5-2.2 Apr 23, 2024 01:20 PM [facility] PROTHROMBIN TIME/INR Specimen Type: PLASMA No comment entered. Ordering Provider: AARON VICTOR Report Released Date/Time: Apr 23, 2024 12:05 PM Reporting Lab: [facility] [address] Performing Lab: [facility] [address] .INR 1.2 H 0.8-1.1 .PT 14.5 s H 9.4-12.5 Apr 23, 2024 01:20 PM [facility] ACT PART THROMBO TIME Specimen Type: PLASMA No comment entered. Ordering Provider: AARON VICTOR Report Released Date/Time: Apr 23, 2024 12:05 PM Reporting Lab: [facility] [address] Performing Lab: [facility] [address] APTT 29.3 s 25.1-36.5 Apr 23, 2024 01:20 PM [facility] COMPREHENSIVE METABOLIC PANEL+MG Specimen Type: PLASMA No comment entered. Ordering Provider: AARON VICTOR Report Released Date/Time: Apr 23, 2024 12:05 PM Reporting Lab: [facility] [address] Performing Lab: [facility] [address] CREATININE 0.7 mg/dL 0.7-1.2 UREA NITROGEN 19 [...] Apr 23, 2024 12:05 PM Reporting Lab: [facility] [address] Performing Lab: [facility] [address] WBC 12.50 10*3/uL H 4.0-11.0 RBC 4.07 [...] Apr 21, 2024 07:37 AM Reporting Lab: [facility] [address] Performing Lab: [facility] [address] URINE COLOR COLORLESS SPECIFIC GRAVITY 1.009 1.003-1.03 [...] Mar 23, 2016 CLINICAL WARNING [facility] Radiology Reports: +/- [...] IR FISTULOGRAM OR SINOGRAM : FLACA WEAVER [id number] -1950 M Exm Date: MAY 25, 2024@09:00 Req Phys: AMINAT ESCALONA Pat Loc: [facility] XRAY INTERVENTIONAL RADIO Img Loc: INTERVENTIONAL RADIOLOGY Service: [place] [address] (Case [id number] COMPLETE) IR FISTULOGRAM OR SINOGRAM (ANI Detailed) CPT:53925 Contrast Media : unspecified contrast media Reason for Study: s/p drain placement for diverticular abscess- assess for drain Clinical History: [place] IS NOT under investigation for COVID-19 or is COVID-19 negative 2 week follow up per Dr Escalona Contact number for responsible provider who can be reached for any questions or notifications of critical findings: [phone] Sonal LAST 3: Collection DT Specimen Test [...] 25, 2024 Date Verified: MAY 25, 2024 Incubator Operator E-Sig:/ES/DAVID BURNS MD Report: PROCEDURES 05/25/2024 [...] Primary Interpreting Staff: DAVID BURNS MD, RADIOLOGIST (Incubator Operator) /[facility] DAVID BURNS [facility] May 25, 2024 08:[address] (AP) ABDOMEN/PELVIS (P): MEGFLACA [id number] -1950 M Exm Date: MAY 25, 2024@08:23 Req Phys: DAVID BURNS Loc: [facility] X[facility] INTERVENTIONAL RADIO Img Loc: CT IMAGING Service: [place] [address] (Case [id number] COMPLETE) CT (AP) ABDOMEN/PELVIS W/O CONTRA(CT Detailed) CPT:93908 Reason for Study: assess abscess and possible drain removal Clinical History: no contrast per stampmirna Per Joint Commission Standards, by signing this diagnostic imaging request the ordering provider confirms they have considered patients age and recent imaging history. Defer to radiologist for final CT protocol. Contact number for responsible provider who can be reached for any questions or notifications of critical findings: [phone] kanikamirna LAST 3: Collection DT Specimen Test [...] PLASMA .CREAT EGFR(CKD-E >90 Ref: >=60 Allergies: ([place] only) TERAZOSIN (Mar 13, 2015) Report Status: Verified Date Reported: MAY 25, 2024 Date Verified: MAY 25, 2024 Incubator Operator E-Sig:/ES/JESSENIA GOODMAN MD Report: EXAM: CT [...] pelvis 04/23/2024.; CT abdomen pelvis 05/05/2020 FINDINGS: KEY CARRIER: Pigtail catheter projecting over the left hemipelvis [...] Primary Interpreting Staff: JESSENIA GOODMAN MD, RADIOLOGIST (Incubator Operator) Primary Interpreting Resident: YOHANNES MELO DO, CITY PLANNER /JESSENIA LOUIE [facility] May 11, 2024 12:39 PM IR FISTULOGRAM / SINOGRAM (P): MEGFLACA YAMIL [id number] -1950 M Exm Date: MAY 11, 2024@12:39 Req Phys: PALMIRA POWELL Loc: [facility] C/R FOLLOW-UP CLINIC (Req' Img Loc: INTERVENTIONAL RADIOLOGY Service: [place] [address] (Case [id number] COMPLETE) IR INJECTION FOR SINOGRAM DIAGNOS(ANI Detailed) CPT:26908 Contrast Media : Non-ionic Iodinated Reason for Study: s/p drain placement for diverticular abscess- assess for drain (Case [id number] COMPLETE) IR FISTULOGRAM OR SINOGRAM (ANI Detailed) CPT:35417 Contrast Media : unspecified contrast media (Case [id number] COMPLETE) IR DRAINAGE CATHETER SUPPLY (ANI Detailed) CPT:C1729 Clinical History: [place] IS NOT under investigation for COVID-19 or is COVID-19 negative s/p drain placement for diverticular abscess- assess for drain removal Contact number for responsible provider who can be reached for any questions or notifications of critical findings: [phone] Palmira Powell MD LAST CREATININE 0.7 (05/04/24) Report Status: Verified Date Reported: MAY 11, 2024 Date Verified: MAY 11, 2024 Incubator Operator E-Sig:/ES/AMINTA ESCALONA MD Report: PROCEDURES Abdominal [...] Interpreting Staff: AMINTA ESCALONA MD, INTERVENTIONAL RADIOLOGIST (Incubator Operator) /AMINTA VELAZCO [facility] May 11, 2024 11:[address] (AP) ABDOMEN/PELVIS (P): FLACA WEAVER [id number] -1950 M Exm Date: MAY 11, 2024@11:40 Req Phys: PALMIRA POWELL Loc: [facility] C/R FOLLOW-UP CLINIC (Req' Img Loc: CT IMAGING Service: [place] [address] (Case [id number] COMPLETE) CT (AP) ABDOMEN/PELVIS W CONTRAST(CT Detailed) CPT:32870 Contrast Media : Non-ionic Iodinated Reason for [...] any questions or notifications of critical findings: [phone] Palmira Powell MD LAST 3: Collection DT [...] PLASMA .CREAT EGFR(CKD-E >90 Ref: >=60 Allergies: ([place] only) TERAZOSIN (Mar 13, 2015) Report Status: Verified Date Reported: MAY 11, 2024 Date Verified: MAY 11, 2024 Incubator Operator E-Sig:/ES/LISA PENDLETON MD Report: CT abdomen [...] Primary Interpreting Staff: LISA PENDLETON MD, RADIOLOGIST (Incubator Operator) /LISA CARDONA [facility] Apr 24, 2024 02:13 PM ABSCESS DRAIN PLACEMENT PERITONEAL (P): FLACA WEAVER [id number] -1950 M Exm Date: APR 24, 2024@14:13 Req Phys: TAURUS WOOD Loc: 3KS/04-24-2024@16:07 Img Loc: INTERVENTIONAL RADIOLOGY Service: [place] [address] (Case [id number] COMPLETE) IR PERITONEAL/RETROPERITONEAL PER(ANI Detailed) CPT:48826 Reason for Study: diverticular abscess Clinical History: [place] IS NOT under investigation for COVID-19 or is COVID-19 negative 73yo M with hx of recurrent diverticulitis, transferred from [facility] 04/[address] 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 Palmira Powell MD LAST CREATININE 0.7 (04/23/24) Report Status: Verified Date Reported: APR 24, 2024 Date Verified: APR 24, 2024 Incubator Operator E-Sig:/ES/SADIA DEE MD Report: PROCEDURES: Placement [...] anesthesia. Using real-time CT fluoroscopy, a 5 Peruvian Yueh catheter was advanced into the collection in the left lower quadrant. A wire was coiled in the collection. The tract into the collection was dilated to accommodate the 12 Peruvian locking pigtail drainage catheter. The catheter was secured to the skin with monofilament suture and connected to JUAN bulb suction. Impression: Successful placement of a 12 Peruvian locking pigtail drainage catheter in the left lower quadrant abscess. This catheter is connected to JUAN bulb suction with flushes, as ordered. I, SADIA DEE, have reviewed the images and report. Primary Interpreting Staff: SADIA DEE MD, RADIOLOGIST (Incubator Operator) Primary Interpreting Resident: JEFFREY FLOWER MD, CITY PLANNER /PJB SADIA DEE [facility] Apr 24, 2024 02:[address] NEEDLE PLACEMENT (P): MEGFLACA YAMIL [id number] -1950 M Exm Date: APR 24, 2024@14:11 Req Phys: TAURUS WOOD Loc: 3K04-24-2024@16:07 Img Loc: CT IMAGING Service: [place] [address] (Case [id number] COMPLETE) CT SCAN FOR NEEDLE PLACEMENT (CT Detailed) CPT:37685 Reason for Study: diverticular abscess Clinical History: Report Status: Verified Date Reported: APR 24, 2024 Date Verified: APR 24, 2024 Incubator Operator E-Sig:/ES/SADIA DEE MD Report: PROCEDURES: Placement [...] anesthesia. Using real-time CT fluoroscopy, a 5 Peruvian Yueh catheter was advanced into the collection in the left lower quadrant. A wire was coiled in the collection. The tract into the collection was dilated to accommodate the 12 Peruvian locking pigtail drainage catheter. The catheter was secured to the skin with monofilament suture and connected to JUAN bulb suction. Impression: Successful placement of a 12 Peruvian locking pigtail drainage catheter in the left lower quadrant abscess. This catheter is connected to JUAN bulb suction with flushes, as ordered. I, SADIA DEE, have reviewed the images and report. Primary Interpreting Staff: SADIA DEE MD, RADIOLOGIST (Incubator Operator) Primary Interpreting Resident: JEFFREY FLOWER MD, CITY PLANNER /SADIA LEWIS [facility] Apr 23, 2024 06:[address] [facility] CT ABDOMEN/PELVIS: FLACA WEAVER [id number] -1950 Ex Date: APR 23, 2024@06:36 Req Phys: MCKAY VICTOR Loc: 04-24-2024@10:25 Im Loc: OUTSOURCE CT Service: Unknown (Case [id number] COMPLETE) NON [place] CT ABDOMEN/PELVIS (CT Detailed) CPT:17441 Reason for Study: OUTSIDE STUDY Clinical History: [...] Lab: [facility] [CLIA# [id number]] [place] [address] Accession [UID]: [id number] [[id number]] Received: Apr 21, 2024@08:16 Collection sample: URINE Collection date: Apr 21, 2024 07:28 Provider: ANANDA HUGGINS Comment on specimen: RECEIVED IN STERILE CUP Test(s) ordered: CULTURE & SUSCEPTIBILITY...... completed: Apr 22, 2024 * BACTERIOLOGY FINAL REPORT => Apr 22, 2024 08:38 TECH CODE: [id number] CULTURE RESULTS: NO GROWTH 24 HOURS Bacteriology Remark(s): THIS REPORT IS FINAL =--=--=--=--=--=--=--=--=--=--=--=- -=--=--=--=--=--=--=--=--=--=--=--= --=--=-- Performing Laboratory: Bacteriology Report Performed By: [facility] [CLIA# [id number]] [place] [address] [facility] Encounter Notes: All associated encounter notes This section contains the clinical notes associated to the Encounter. Date/Time Encounter Note(s) Provider Source May 04, 2024 08:18 AM PHARMACY NOTE: LOCAL TITLE: PHARMACY PROGRESS NOTE STANDARD TITLE: PHARMACY NOTE DATE OF NOTE: MAY 04, 2024@08:18 ENTRY DATE: MAY 04, 2024@08:18:17 AUTHOR: [facility] EXP COSIGNER: URGENCY: STATUS: COMPLETED PHARMACY PROGRESS NOTE Has ADDENDA Patient stopping by pharmacy today looking for a restart prescription on lisinopril. Patient had stopped by yesterday 05/03 as well. Pharmacist contact provider and looks like there is no pending order as of today. Patient is unsure of who is supposed to restart the lisinopril for him so deferring to PCP. Looks like PCP is out of clinic on Tuesday per Teams notification. Patient is upset that there is no orders. Maintenance Service Dispatcher offered to reach out to PCP and career development manager to follow. Please reach out to patient and enter order as appropriate. Thank you /es/ CHRIS FOUNTAIN Pharmacist Signed: 05/04/2024 08:20 Receipt Acknowledged By: 05/07/2024 08:32 /es/ Jatinder Cabrera MD Physician 05/04/2024 08:36 /es/ GUERITA AGUILA RN REGISTERED NURSE 05/04/2024 ADDENDUM STATUS: COMPLETED Spoke with pt who is wondering if he should restart his lisinopril. He said they stopped it when he was in the hospital and never discussed restarting it when he went home. Pt said he had been to the pharm twice to discuss but did not get resolution. Pt said he would come by clinic on Tuesday with the bottle and then became very aggitated and stated What the fuck is wrong with you people. I don't understand why you fuckers at the [place] cannot find my prescription. I'm going to hang up. Pt hung up the phone. /alexi/ GUERITA AGUILA RN REGISTERED NURSE Signed: 05/04/2024 08:44 05/07/2024 ADDENDUM STATUS: COMPLETED HCTZ, lisinopril, and lasix were stopped at discharge due to hypokalemia. Repeat BMP last week w/ normal K FU w/ patient difficult per PACT RN due to yelling and swearing on his part. He showed for his PACT RN appt today and is hypertensive, asymptomatic -Will restart HCTZ and lisinopril today () -hold lasix -FU w/ PACT pharmacy team ordered in one week /es/ Jatinder Cabrera MD Physician Signed: 05/07/2024 08:37 [facility]
--- OUTSIDE RECORDS SUMMARY | 2024-07-16 07:24 | XMS_ITS | Encounter Summary ---
Author Name [facility] [facility] [place] Address [address] [place] [address] Care Team Providers Care Probation Supervisor Name Role Phone JATINDER CABRERA Primary [...] PART A Sep 29, 2016 PART A [id number] [phone] JUDY WEAVER PATIENT Selected Encounter This section includes the information on record at [place] for the Encounter. Date/Time Encounter Type Encounter Description Reason Pro vider Source Jul 10, 2024 01:00 AM Inpatient Visit ADMIN PAT ACTIVTIES ([employer]) SYSTEM,CIS-ARK IHE Encounter Template Text not used [...] 13, 2024 08:15 AM AMB[facility]ATORY - NONE [facility] Active, Pending, and Scheduled Orders This section includes a listing of several types of active, pending, and scheduled orders, including clinic medications orders, diagnostic test orders, procedure orders and consult orders; where the start date of the order is 45 days before the date of the Encounter or 45 days after the date of theEncounter. The data comes from all [facility]. Test Date/Time Test Type Test Details Facility Name May 28, 2024 12:00 AM Laboratory - Blood Bank Order TYPE & SCREEN - LAB BLOOD SP [facility] Jun 08, 2024 09:57 AM Laboratory - Chemi stry Order URINALYSIS URINE WC ONCE [facility] Jun 12, 2024 12:00 AM Laboratory - Chemi stry Order BNP PLASMA SP ONCE [facility] Jun 21, 2024 05:45 PM Laboratory - Blood Bank Order TYPE & SCREEN - LAB BLOOD WC [facility] Jul 03, 2024 12:00 AM Laboratory - Blood Bank Order TYPE & SCREEN - LAB BLOOD WC [facility] Jul 16, 2024 12:00 AM Laboratory - Chemi stry Order CBC BLOOD SP ONCE [facility] Jul 17, 2024 12:00 AM Laboratory - Chemi stry Order BASIC METABOLIC PANEL+MG PLASMA SP ONCE [facility] Lab Results: +/- 30 [...] Range Comment Jul 10, 2024 07:16 AM [facility] PHOSPHORUS Specimen Type: PLASMA No comment entered. Ordering Provider: JUANCARLOS ECHOLS S Report Released Date/Time: Jul 09, 2024 12:23 PM Reporting Lab: [facility] [address] Performing Lab: [facility] [address] PHOSPHORUS 3.0 mg/dL 2.3-4.3 Jul 10, 2024 07:16 AM [facility] BASIC METABOLIC PANEL+MG Specimen Type: PLASMA No comment entered. Ordering Provider: JUANCARLOS ECHOLS S Report Released Date/Time: Jul 09, 2024 12:23 PM Reporting Lab: [facility] [address] Performing Lab: [facility] [address] CREATININE 0.7 mg/dL 0.7-1.2 UREA NITROGEN 27 mg/dL H 8-26 GLUCOSE 104 mg/dL H 70-100 SODIUM 133 mmol/L L 136-145 POTASSIUM 4.3 mmol/L 3.5-5.1 CHLORIDE 102 mmol/L 98-107 CO2 19 mmol/L L 22-29 CALCIUM 10.1 mg/dL 8.4-10.2 MAGNESIUM 1.9 mg/dL 1.6-2.6 ANION GAP 12 mmol/L 5-15 .CREAT EGFR(CKD-EPI) >90 >60 Jul 10, 2024 07:15 AM [facility] CBC Specimen Type: BLOOD No comment entered. Ordering Provider: JUANCARLOS ECHOLS S Report Released Date/Time: Jul 09, 2024 12:23 PM Reporting Lab: [facility] [phone] Performing Lab: [facility] [address] WBC 18.8 H 4.0-11.0 RBC 5.08 4.60-6.20 HGB 15.9 g/dL 13.5-17.9 HCT 46.8 41.0-54.0 MCV 92.1 fL 80.0-100.0 MCH 31.3 pg 27.0-33.0 MCHC 34.0 g/dL 32.0-37.5 PLT 479 H 150-400 MPV 10.2 fL 9.1-13.0 RDW 13.7 11.5-14.5 Jul 09, 2024 07:08 AM [facility] CBC Specimen Type: BLOOD No comment entered. Ordering Provider: QUYNH WEISS Report Released Date/Time: Jul 08, 2024 06:18 PM Reporting Lab: [facility] [address] Performing Lab: [facility] [address] WBC 15.3 H 4.0-11.0 RBC 4.91 4.60-6.20 HGB 15.1 g/dL 13.5-17.9 HCT 45.7 41.0-54.0 MCV 93.1 fL 80.0-100.0 MCH 30.8 pg 27.0-33.0 MCHC 33.0 g/dL 32.0-37.5 PLT 443 H 150-400 MPV 10.0 fL 9.1-13.0 RDW 13.5 11.5-14.5 Jul 08, 2024 10:50 AM [facility] URINALYSIS Specimen Type: URINE No comment entered. Ordering Provider: KATELYNN PERSON Report Released Date/Time: Jul 08, 2024 08:41 AM Reporting Lab: [facility] [address] Performing Lab: [facility] [address] URINE COLOR YELLOW SPECIFIC GRAVITY >1.050 H [...] NEGATIVE NEGATIVE Jul 08, 2024 09:54 AM [facility] CBC Specimen Type: BLOOD Comment: Specimen received in Lab at: 0952 Ordering Provider: JUANCARLOS ECHOLS Report Released Date/Time: Jul 07, 2024 04:49 PM Reporting Lab: [facility] [address] Performing Lab: [facility] [address] WBC 17.5 H 4.0-11.0 RBC 4.88 4.60-6.20 HGB 14.9 g/dL 13.5-17.9 HCT 45.7 41.0-54.0 MCV 93.6 fL 80.0-100.0 MCH 30.5 pg 27.0-33.0 MCHC 32.6 g/dL 32.0-37.5 PLT 472 H 150-400 MPV 10.2 fL 9.1-13.0 RDW 13.7 11.5-14.5 Jul 08, 2024 09:54 AM [facility] PHOSPHORUS Specimen Type: PLASMA Comment: Specimen received in Lab at: 0952 Ordering Provider: JUANCARLOS ECHOLS S Report Released Date/Time: Jul 07, 2024 04:49 PM Reporting Lab: [facility] [address] Performing Lab: [facility] [address] PHOSPHORUS 2.6 mg/dL 2.3-4.3 Jul 08, 2024 09:54 AM [facility] BASIC METABOLIC PANEL+MG Specimen Type: PLASMA Comment: Specimen received in Lab at: 0952 Ordering Provider: JUANCARLOS ECHOLS S Report Released Date/Time: Jul 07, 2024 04:49 PM Reporting Lab: [facility] [phone] Performing Lab: [facility] [address] CREATININE 0.9 mg/dL 0.7-1.2 UREA NITROGEN 26 mg/dL 8-26 GLUCOSE 128 mg/dL H 70-100 SODIUM 134 mmol/L L 136-145 POTASSIUM 3.4 mmol/L L 3.5-5.1 CHLORIDE 100 mmol/L 98-107 CO2 24 mmol/L 22-29 CALCIUM 9.8 mg/dL 8.4-10.2 MAGNESIUM 1.8 mg/dL 1.6-2.6 ANION GAP 10 mmol/L 5-15 .CREAT EGFR(CKD-EPI) >90 >60 Jul 07, 2024 02:00 PM [facility] C DIFF PANEL Specimen Type: FECES No comment entered. Ordering Provider: JEVON ZAZUETA Report Released Date/Time: Jul 07, 2024 12:26 PM Reporting Lab: [facility] [address] Performing Lab: [facility] [phone] C DIFF TOX B GENE PCR NEGATIVE Negative Jul 07, 2024 07:41 AM [facility] PHOSPHORUS Specimen Type: PLASMA No comment entered. Ordering Provider: JEVON ZAZUETA Report Released Date/Time: Jul 06, 2024 03:44 PM Reporting Lab: [facility] [phone] Performing Lab: [facility] [address] PHOSPHORUS 3.1 mg/dL 2.3-4.3 Jul 07, 2024 07:41 AM [facility] BASIC METABOLIC PANEL+MG Specimen Type: PLASMA No comment entered. Ordering Provider: JEVON ZAZUETA Report Released Date/Time: Jul 06, 2024 03:44 PM Reporting Lab: [facility] [address] Performing Lab: [facility] [address] CREATININE 0.9 mg/dL 0.7-1.2 UREA NITROGEN 20 mg/dL 8-26 GLUCOSE 157 mg/dL H 70-100 SODIUM 136 mmol/L 136-145 POTASSIUM 3.7 mmol/L 3.5-5.1 CHLORIDE 102 mmol/L 98-107 CO2 21 mmol/L L 22-29 CALCIUM 9.8 mg/dL 8.4-10.2 MAGNESIUM 1.9 mg/dL 1.6-2.6 ANION GAP 13 mmol/L 5-15 .CREAT EGFR(CKD-EPI) >90 >60 Jul 07, 2024 07:40 AM [facility] CBC Specimen Type: BLOOD No comment entered. Ordering Provider: EJVON ZAZUETA Report Released Date/Time: Jul 06, 2024 03:44 PM Reporting Lab: [facility] [address] Performing Lab: [facility] [address] WBC 21.2 H 4.0-11.0 RBC 5.09 4.60-6.20 HGB 15.9 g/dL 13.5-17.9 HCT 48.3 41.0-54.0 MCV 94.9 fL 80.0-100.0 MCH 31.2 pg 27.0-33.0 MCHC 32.9 g/dL 32.0-37.5 PLT 500 H 150-400 MPV 10.3 fL 9.1-13.0 RDW 13.6 11.5-14.5 Jul 06, 2024 07:21 AM [facility] CBC Specimen Type: BLOOD No comment entered. Ordering Provider: JEVON ZAZUETA Report Released Date/Time: Jul 05, 2024 01:22 PM Reporting Lab: [facility] [address] Performing Lab: [facility] [address] WBC 18.0 H 4.0-11.0 RBC 4.83 4.60-6.20 HGB 14.6 g/dL 13.5-17.9 HCT 45.5 41.0-54.0 MCV 94.2 fL 80.0-100.0 MCH 30.2 pg 27.0-33.0 MCHC 32.1 g/dL 32.0-37.5 PLT 368 150-400 MPV 10.4 fL 9.1-13.0 RDW 13.6 11.5-14.5 Jul 06, 2024 07:21 AM [facility] PHOSPHORUS Specimen Type: PLASMA No comment entered. Ordering Provider: JEVON ZAZUETA Report Released Date/Time: Jul 05, 2024 01:22 PM Reporting Lab: [facility] [address] Performing Lab: [facility] [address] PHOSPHORUS 3.6 mg/dL 2.3-4.3 Jul 06, 2024 07:21 AM [facility] BASIC METABOLIC PANEL+MG Specimen Type: PLASMA No comment entered. Ordering Provider: JEVON ZAZUETA Report Released Date/Time: Jul 05, 2024 01:22 PM Reporting Lab: [facility] [phone] Performing Lab: [facility] [address] CREATININE 0.7 mg/dL 0.7-1.2 UREA NITROGEN 12 mg/dL 8-26 GLUCOSE 108 mg/dL H 70-100 SODIUM 138 mmol/L 136-145 POTASSIUM 3.4 mmol/L L 3.5-5.1 CHLORIDE 104 mmol/L 98-107 CO2 20 mmol/L L 22-29 CALCIUM 9.3 mg/dL 8.4-10.2 MAGNESIUM 1.9 mg/dL 1.6-2.6 ANION GAP 14 mmol/L 5-15 .CREAT EGFR(CKD-EPI) >90 >60 Jul 05, 2024 07:17 AM [facility] MAGNESIUM Specimen Type: PLASMA No comment entered. Ordering Provider: JUANCARLOS ECHOLS S Report Released Date/Time: Jul 04, 2024 09:39 AM Reporting Lab: [facility] [address] Performing Lab: [facility] [address] MAGNESIUM 2.0 mg/dL 1.6-2.6 Jul 05, 2024 07:17 AM [facility] PHOSPHORUS Specimen Type: PLASMA No comment entered. Ordering Provider: JUANCARLOS ECHOLS S Report Released Date/Time: Jul 04, 2024 09:39 AM Reporting Lab: [facility] [address] Performing Lab: [facility] [address] PHOSPHORUS 2.0 mg/dL L 2.3-4.3 Jul 05, 2024 07:17 AM [facility] BASIC METABOLIC PANEL+MG Specimen Type: PLASMA No comment entered. Ordering Provider: JUANCARLOS ECHOLS S Report Released Date/Time: Jul 04, 2024 09:39 AM Reporting Lab: [facility] [address] Performing Lab: [facility] [address] CREATININE 0.7 mg/dL 0.7-1.2 UREA NITROGEN 12 mg/dL 8-26 GLUCOSE 84 mg/dL 70-100 SODIUM 135 mmol/L L 136-145 POTASSIUM 3.8 mmol/L 3.5-5.1 CHLORIDE 104 mmol/L 98-107 CO2 24 mmol/L 22-29 CALCIUM 9.3 mg/dL 8.4-10.2 MAGNESIUM 2.0 mg/dL 1.6-2.6 ANION GAP 7 mmol/L 5-15 .CREAT EGFR(CKD-EPI) >90 >60 Jul 05, 2024 07:16 AM [facility] CBC Specimen Type: BLOOD No comment entered. Ordering Provider: JUANCARLOS ECHOLS S Report Released Date/Time: Jul 04, 2024 09:39 AM Reporting Lab: [facility] [address] Performing Lab: [facility] [address] WBC 18.3 H 4.0-11.0 RBC 4.49 L 4.60-6.20 HGB 14.1 g/dL 13.5-17.9 HCT 43.4 41.0-54.0 MCV 96.7 fL 80.0-100.0 MCH 31.4 pg 27.0-33.0 MCHC 32.5 g/dL 32.0-37.5 PLT 317 150-400 MPV 10.0 fL 9.1-13.0 RDW 13.9 11.5-14.5 Jul 04, 2024 07:17 AM [facility] BASIC METABOLIC PANEL+MG Specimen Type: PLASMA No comment entered. Ordering Provider: GABINO CAMERON Report Released Date/Time: Jul 03, 2024 06:31 PM Reporting Lab: [facility] [address] Performing Lab: [facility] [address] CREATININE 0.7 mg/dL 0.7-1.2 UREA NITROGEN 16 mg/dL 8-26 GLUCOSE 129 mg/dL H 70-100 SODIUM 137 mmol/L 136-145 POTASSIUM 3.7 mmol/L 3.5-5.1 CHLORIDE 107 mmol/L 98-107 CO2 22 mmol/L 22-29 CALCIUM 9.0 mg/dL 8.4-10.2 MAGNESIUM 1.9 mg/dL 1.6-2.6 ANION GAP 8 mmol/L 5-15 .CREAT EGFR(CKD-EPI) >90 >60 Jul 04, 2024 07:17 AM [facility] PHOSPHORUS Specimen Type: PLASMA No comment entered. Ordering Provider: GABINO CAMERON Report Released Date/Time: Jul 03, 2024 06:31 PM Reporting Lab: [facility] [address] Performing Lab: [facility] [address] PHOSPHORUS 2.8 mg/dL 2.3-4.3 Jul 04, 2024 07:16 AM [facility] CBC Specimen Type: BLOOD No comment entered. Ordering Provider: GABINO CAMERON Report Released Date/Time: Jul 03, 2024 06:31 PM Reporting Lab: [facility] [address] Performing Lab: [facility] [address] WBC 20.6 H 4.0-11.0 RBC 4.63 4.60-6.20 HGB 14.2 g/dL 13.5-17.9 HCT 43.4 41.0-54.0 MCV 93.7 fL 80.0-100.0 MCH 30.7 pg 27.0-33.0 MCHC 32.7 g/dL 32.0-37.5 PLT 329 150-400 MPV 10.4 fL 9.1-13.0 RDW 13.8 11.5-14.5 Jul 04, 2024 07:16 AM [facility] CBC & DIFF Specimen Type: BLOOD Comment: Manual Differential Performed Ordering Provider: GABINO CAMERON Report Released Date/Time: Jul 03, 2024 06:31 PM Reporting Lab: [facility] [address] Performing Lab: [facility] [address] WBC 20.6 H 4.0-11.0 RBC 4.63 4.60-6.20 [...] MORPHOLOGY PRESENT Jul 04, 2024 07:15 AM [facility] BNP Specimen Type: PLASMA No comment entered. Ordering Provider: GABINO CAMERON Report Released Date/Time: Jul 03, 2024 06:31 PM Reporting Lab: [facility] [address] Performing Lab: [facility] [address] BNP 292 pg/mL H <99 Jul 03, 2024 10:32 PM [facility] FINGERSTICK GLUCOSE Specimen Type: BLOOD Comment: Save Result Nurse Notified Ordering Provider: KATELYNN PERSON Report Released Date/Time: Jul 03, 2024 10:50 PM Reporting Lab: [facility] [address] Performing Lab: [facility] [address] FINGERSTICK GLUCOSE 126 mg/dL H 70-100 Jul 03, 2024 05:33 PM [facility] FINGERSTICK GLUCOSE Specimen Type: BLOOD Comment: Save Result Nurse Notified Ordering Provider: KATELYNN PERSON Report Released Date/Time: Jul 03, 2024 05:46 PM Reporting Lab: [facility] [address] Performing Lab: [facility] [address] FINGERSTICK GLUCOSE 141 mg/dL H 70-100 Jul 03, 2024 02:31 PM [facility] POC ABG/ELECTROLYTES Specimen Type: ARTERIAL BLOOD Comment: FIO2 = 97% Patient Temp: 36.0 C Sample Type = ARTERIAL Ordering Provider: MAZIN ARREDONDO Report Released Date/Time: Jul 03, 2024 01:48 PM Reporting Lab: [facility] [address] Performing Lab: [facility] [address] POC PH 7.387 7.35-7.45 POC PCO2 34.4 [...] H 80.0-105.0 Jul 03, 2024 01:05 PM [facility] POC ABG/ELECTROLYTES Specimen Type: ARTERIAL BLOOD Comment: FIO2 = 53% Patient Temp: 36.2 C Sample Type = ARTERIAL Ordering Provider: MAZIN ARREDONDO Report Released Date/Time: Jul 03, 2024 01:48 PM Reporting Lab: [facility] [address] Performing Lab: [facility] [address] POC PH 7.280 L 7.35-7.45 POC PCO2 [...] mm[Hg] 80.0-105.0 Jul 03, 2024 06:15 AM [facility] URINALYSIS Specimen Type: URINE No comment entered. Ordering Provider: MARYBETH POWELL Report Released Date/Time: Jun 12, 2024 04:01 PM Reporting Lab: [facility] [address] Performing Lab: [facility] [address] URINE COLOR YELLOW SPECIFIC GRAVITY 1.031 1.003-1.03 [...] 250 NEGATIVE Jul 03, 2024 06:13 AM [facility] CBC Specimen Type: BLOOD No comment entered. Ordering Provider: MARYBETH POWELL Report Released Date/Time: Jun 12, 2024 03:59 PM Reporting Lab: [facility] [address] Performing Lab: [facility] [address] WBC 15.8 H 4.0-11.0 RBC 5.11 4.60-6.20 HGB 16.1 g/dL 13.5-17.9 HCT 49.1 41.0-54.0 MCV 96.1 fL 80.0-100.0 MCH 31.5 pg 27.0-33.0 MCHC 32.8 g/dL 32.0-37.5 PLT 357 150-400 MPV 9.8 fL 9.1-13.0 RDW 13.7 11.5-14.5 Jun 24, 2024 09:50 AM [facility] BASIC METABOLIC PANEL+MG Specimen Type: PLASMA Comment: Specimen received in Lab at: 0948 Ordering Provider: JEVON ZAZUETA Report Released Date/Time: Jun 23, 2024 06:07 PM Reporting Lab: [facility] [address] Performing Lab: [facility] [address] CREATININE 0.8 mg/dL 0.7-1.2 UREA NITROGEN 13 mg/dL 8-26 GLUCOSE 135 mg/dL H 70-100 SODIUM 135 mmol/L L 136-145 POTASSIUM 3.6 mmol/L 3.5-5.1 CHLORIDE 103 mmol/L 98-107 CO2 24 mmol/L 22-29 CALCIUM 9.2 mg/dL 8.4-10.2 MAGNESIUM 1.9 mg/dL 1.6-2.6 ANION GAP 8 mmol/L 5-15 .CREAT EGFR(CKD-EPI) >90 >60 Jun 24, 2024 09:50 AM [facility] CBC Specimen Type: BLOOD Comment: Specimen received in Lab at: 0948 Ordering Provider: JEVON ZAZUETA Report Released Date/Time: Jun 23, 2024 06:07 PM Reporting Lab: [facility] [address] Performing Lab: [facility] [address] WBC 15.5 H 4.0-11.0 RBC 4.93 4.60-6.20 HGB 15.2 g/dL 13.5-17.9 HCT 46.5 41.0-54.0 MCV 94.3 fL 80.0-100.0 MCH 30.8 pg 27.0-33.0 MCHC 32.7 g/dL 32.0-37.5 PLT 223 150-400 MPV 11.4 fL 9.1-13.0 RDW 13.9 11.5-14.5 Jun 23, 2024 07:52 AM [facility] COMPREHENSIVE METABOLIC PANEL+MG Specimen Type: PLASMA No comment entered. Ordering Provider: JEVON ZAZUETA Report Released Date/Time: Jun 22, 2024 05:51 PM Reporting Lab: [facility] [address] Performing Lab: [facility] [address] CREATININE 0.7 mg/dL 0.7-1.2 UREA NITROGEN 16 [...] >90 >60 Jun 23, 2024 07:52 AM [facility] CBC & DIFF Specimen Type: BLOOD Comment: Automated Differential Performed Ordering Provider: JEVON ZAZUETA Report Released Date/Time: Jun 22, 2024 05:51 PM Reporting Lab: [facility] [address] Performing Lab: [facility] [address] WBC 14.9 H 4.0-11.0 RBC 5.09 4.60-6.20 [...] 0.1 0.0-0.1 Jun 22, 2024 06:10 PM [facility] CBC Specimen Type: BLOOD No comment entered. Ordering Provider: JEVON ZAZUETA Report Released Date/Time: Jun 22, 2024 05:51 PM Reporting Lab: [facility] [address] Performing Lab: [facility] [address] WBC 16.9 H 4.0-11.0 RBC 5.28 4.60-6.20 HGB 16.9 g/dL 13.5-17.9 HCT 50.4 41.0-54.0 MCV 95.5 fL 80.0-100.0 MCH 32.0 pg 27.0-33.0 MCHC 33.5 g/dL 32.0-37.5 PLT 223 150-400 MPV 10.9 fL 9.1-13.0 RDW 14.0 11.5-14.5 Jun 22, 2024 06:10 PM [facility] COMPREHENSIVE METABOLIC PANEL+MG Specimen Type: PLASMA No comment entered. Ordering Provider: JEVON ZAZUETA Report Released Date/Time: Jun 22, 2024 05:51 PM Reporting Lab: [facility] [address] Performing Lab: [facility] [address] CREATININE 0.7 mg/dL 0.7-1.2 UREA NITROGEN 17 [...] >90 >60 Jun 21, 2024 06:48 PM [facility] URINALYSIS Specimen Type: URINE No comment entered. Ordering Provider: DELIA MARTINEZ Report Released Date/Time: Jun 21, 2024 05:45 PM Reporting Lab: [facility] [address] Performing Lab: [facility] [address] URINE COLOR YELLOW SPECIFIC GRAVITY 1.041 H [...] 500 NEGATIVE Jun 21, 2024 05:34 PM [facility] POC CREATININE Specimen Type: BLOOD No comment entered. Ordering Provider: DELIA MARTINEZ Report Released Date/Time: Jun 21, 2024 06:07 PM Reporting Lab: [facility] [address] Performing Lab: [facility] [address] POC CREATININE 1.1 mg/dL 0.6-1.3 Jun 21, 2024 05:30 PM [facility] POC ABG/LACTATE Specimen Type: VENOUS BLOOD No comment entered. Ordering Provider: DELIA MARTINEZ Report Released Date/Time: Jun 21, 2024 06:07 PM Reporting Lab: [facility] [address] Performing Lab: [facility] [address] POC PH 7.470 H 7.31-7.41 POC PCO2 31.2 mm[Hg] L 41.00-51 .0 0 POC PO2 46 mm[Hg] H 35.0-40.0 POC TCO2 24 mmol/L 24.0-29.0 POC HCO3 22.7 mmol/L L 23.0-28.0 POC BE ECT -1 mmol/L POC SO2 85 H 70-75 POC LACTATE 1.85 mmol/L 0.90-1.70 Jun 21, 2024 05:24 PM [facility] PROTHROMBIN TIME/INR Specimen Type: PLASMA No comment entered. Ordering Provider: DELIA MARTINEZ Report Released Date/Time: Jun 21, 2024 05:30 PM Reporting Lab: [facility] [address] Performing Lab: [facility] [address] .INR 1.2 H 0.8-1.1 .PT 13.9 s H 9.4-12.5 Jun 21, 2024 05:24 PM [facility] LIPASE Specimen Type: PLASMA No comment entered. Ordering Provider: DELIA MARTINEZ Report Released Date/Time: Jun 21, 2024 05:30 PM Reporting Lab: [facility] [address] Performing Lab: [facility] [address] LIPASE 32 U/L <60 Jun 21, 2024 05:24 PM [facility] EXTRA GOLD GEL TUBE Specimen Type: SERUM No comment entered. Ordering Provider: DELIA MARTINEZ Report Released Date/Time: Jun 21, 2024 05:41 PM Reporting Lab: [facility] [address] Performing Lab: [facility] [address] EXTRA GOLD GEL TUBE RECEIVED Jun 21, 2024 05:24 PM [facility] COMPREHENSIVE METABOLIC PANEL+MG Specimen Type: PLASMA No comment entered. Ordering Provider: DELIA MARTINEZ Report Released Date/Time: Jun 21, 2024 05:30 PM Reporting Lab: [facility] [address] Performing Lab: [facility] [address] CREATININE 0.9 mg/dL 0.7-1.2 UREA NITROGEN 29 [...] mg/dL <0.5 Jun 21, 2024 05:24 PM [facility] CBC & DIFF Specimen Type: BLOOD Comment: Manual Differential Performed Ordering Provider: DELIA MARTINEZ Report Released Date/Time: Jun 21, 2024 05:30 PM Reporting Lab: [facility] [address] Performing Lab: [facility] [address] WBC 21.3 H 4.0-11.0 RBC 5.48 4.60-6.20 [...] 15, 2024 08:30 AM [facility] Y[facility] OR MORE [facility] May 06, 2023 11:30 AM VA-[facility]BACCO FORMER USER [facility] May 06, 2023 11:30 AM VA-TOBACCO [...] VIEWS PA A ND LAT: FLACA WEAVER [id number] -[id number] M Exm Date: JUL 08, 2024@10:09 Req Phys: KATELYNN PERSON Pat Loc: 2KG/07-08-2024@11:49 Img Loc: MAIN X-RAY Service: [place] [address] (Case 24 COMPLETE) CHEST 2 VIEWS PA AND LAT (RAD Detailed) CPT:07640 Reason for Study: Uptrending WBC, POD 5 Clinical History: [place] IS NOT under investigation for COVID-19 or is COVID-19 negative POD 5, work up for uptrending wbc Responsible provider name and phone number to notify for critical findings if other than user placing the order and pager listed below: User placing orders pager: Katelynn Person LAST CREATININE 0.9 (07/07/24) Report Status: Verified Date Reported: JUL 08, 2024 Date Verified: JUL 08, 2024 Addiction Nurse E-Sig: Report: CHEST 2 VIEWS PA AND LAT HISTORY: Uptrending WBC, POD 5 COMPARISON: CT chest 11/12/2022 TECHNIQUE: Frontal and lateral views of the chest, submitted to the [place] National Teleradiology Program (NTP) for interpretation. FINDINGS: Lungs: Clear. No focal consolidation. No pulmonary edema. Pleura: No pleural effusion or pneumothorax. Mediastinum: Normal size and contour. Bones: Unremarkable. Impression: No acute cardiopulmonary disease. READING PHYSICIAN: Sarbjit Vaughn M.D. -[id number] 07/08/2024 12:46 EST [facility] National Teleradiology Program [phone] (For Medical Practitioner Use Only) Attention Patients / Veterans: If you have questions or concerns about these test results, please contact your ordering provider or primary care team. Primary Interpreting Staff: RADIOLOGY,OUTSIDE SERVICE, Staff Physician / RADIOLOGY,OUTSIDE SERVICE [facility] Jul 08, 2024 10:[address] (AP) ABDOMEN/PE LVIS W CONTRAST: FLACA WEAVER [id number] -1950 M Exm Date: JUL 08, 2024@10:00 Req Phys: KATELYNN PERSON Pat Loc: [facility]/07-08-2024@12:07 Img Loc: CT IMAGING Service: [place] [place] [address] (Case 22 COMPLETE) CT (AP) ABDOMEN/PELVIS W CONTRAST(CT Detailed) CPT:77849 Contrast Media : Non-ionic Iodinated Reason for [...] PLASMA .CREAT EGFR(CKD-E >90 Ref: >=60 Allergies: ([place] only) TERAZOSIN (Mar 13, 2015) Report Status: Verified Date Reported: JUL 08, 2024 Date Verified: JUL 08, 2024 Addiction Nurse E-Sig: Report: CT (AP) ABDOMEN/PELVIS W CONTRAST HISTORY: POD 5, Uptrending WBC - Concern for Abscess/other infection COMPARISON: June 21, 2024 TECHNIQUE: CT abdomen and pelvis was performed after intravenous contrast. Axial, sagittal and coronal reformatted images. The study was performed at the local [place] facility and images were sent to the [place] [facility] Teleradiology [facility] (NTP) for interpretation. Number [...] as noted above READING PHYSICIAN: Celestino Blanc -[phone] 07/08/2024 13:04 EST [facility] National Teleradiology Program [phone] (For Medical Practitioner Use Only) Attention Patients / Veterans: If you have questions or concerns about these test results, please contact your ordering provider or primary care team. Primary Interpreting Staff: RADIOLOGY,OUTSIDE SERVICE, Staff Physician / RADIOLOGY,OUTSIDE SERVICE [facility] Jun 22, 2024 11:49 AM ABSCESS DRAIN PLAC EMENT PERITONEAL (P): FLACA WEAVER [id number] -1950 M Exm Date: JUN 22, 2024@11:49 Req Phys: ANGELA HOLDEN Loc: [facility]/06-22-2024@17:14 Img Loc: INTERVENTIONAL RADIOLOGY Service: [place] [address] (Case [id number] COMPLETE) IR PERITONEAL/RETROPERITONEAL PER(ANI Detailed) CPT:25670 Reason for Study: diverticulitis with abscess (Case 3570 COMPLETE) IR MOD SEDATION 10-22 MIN (ANI Detailed) CPT:32598 Clinical History: Spencer IS NOT under investigation for COVID-19 or is COVID-19 negative 73 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 please place abscess drain. Contact number for responsible provider who can be reached for any questions or notifications of critical findings: [phone] n/a LAST CREATININE 0.9 (06/21/24) Report Status: Verified Date Reported: JUN 22, 2024 Date Verified: JUN 22, 2024 Addiction Nurse E-Sig:/ES/LISA PENDLETON MD Report: PROCEDURES: Placement of [...] anesthesia. Using real-time CT fluoroscopy, a 5 Ivorian Webstepesis catheter was advanced into the collection in the left pelvis. A wire was coiled in the collection. The tract into the collection was dilated to accommodate the 12 Ivorian locking pigtail drainage catheter. There was return [...] Primary Interpreting Staff: LISA PENDLETON MD, RADIOLOGIST (Addiction Nurse) /JRT LISA PENDLETON [facility] Jun 22, 2024 11:[address] NEEDLE PLACEMEN T (P): FLACA WEAVER [id number] -1950 M Exm Date: JUN 22, 2024@11:48 Req Phys: ANGELA HOLDEN [facility] Loc: [facility]/06-22-2024@17:14 Img Loc: CT IMAGING Service: [place] [address] (Case [id number] COMPLETE) CT SCAN FOR NEEDLE PLACEMENT (CT Detailed) CPT:54213 Reason for Study: l pelvic abscess drain Clinical History: Report Status: Verified Date Reported: JUN 22, 2024 Date Verified: JUN 22, 2024 Addiction Nurse E-Sig:/ES/LISA PENDLETON MD Report: PROCEDURES: Placement of [...] obtained. A pre-procedural Time-Out was performed per [facility] policy. The patient was placed in the supine position on the CT table. Preprocedural scan performed. The suprapubic region/lower abdominal wall was sterilely prepped and draped in the usual fashion.1% lidocaine without epinephrine was used for local anesthesia. Using real-time CT fluoroscopy, a 5 Ivorian Webstepesis catheter was advanced into the collection in the left pelvis. A wire was coiled in the collection. The tract into the collection was dilated to accommodate the 12 Ivorian locking pigtail drainage catheter. There was return [...] Primary Interpreting Staff: LISA PENDLETON MD, RADIOLOGIST (Addiction Nurse) /JRT LISA PENDLETON [facility] Jun 21, 2024 06:[address] (AP) ABDOMEN/PE LVIS (P): FLACA WEAVER [id number] -1950 M Exm Date: JUN 21, 2024@18:09 Req Phys: DELIA MARTINEZ Loc: [facility] (Re Img Loc: CT IMAGING Service: [place] [address] (Case [id number] COMPLETE) CT (AP) ABDOMEN/PELVIS W CONTRAST(CT Detailed) CPT:45322 Contrast Media : Non-ionic Iodinated Reason for [...] PLASMA .CREAT EGFR(CKD-E >90 Ref: >=60 Allergies: ([place] only) TERAZOSIN (Mar 13, 2015) Defer to [...] 21, 2024 Date Verified: JUN 21, 2024 Addiction Nurse E-Sig:/ES/CARLOS A CUNNINGHAM DO Report: EXAMINATION: CT [...] Interpreting Staff: CARLOS A CUNNINGHAM DO, RADIOLOGIST (Addiction Nurse) /CARLOS A ROWELL [facility] Pathology Reports: +/- 30 [...] $APHDR Reporting Lab: [facility] [CLIA# [id number]] [place] [address] - - - - - - - [...] - - - PATHOLOGY REPORT Accession No. [id number] - - - - - - - [...] - PATHOLOGY REPORT Accession No. [id number] - - - - - - - [...] Second circumferential surgical margin, en face; E-F: Educational Administrator diverticula; G: Educational Administrator section of mesentery; H: Random direct sales representative section of additional adipose tissue [...] colonic tissue ring, bisected transversely. [facility]. [facility]: Microscopic examination performed. DIAGNOSIS: 1. Colon, sigmoid, sigmoidectomy-- - Diverticulosis with perforation and focal abscess formation 2. Colon, anastomotic rings, excision-- - Viable colonic mucosa without diagnostic abnormality /es/ EDUARDO PALOMARES MD STAFF PATHOLOGIST Signed Jul 06, 2024@10:40 Performing Laboratory: Surgical Pathology Report Performed By: [facility] [CLIA# [id number]] [place] [address] $FTR - - - - - - - - - - - - - - - - - - - - - - - - - - - - - - - - - - - - - - - - (End of report) EDUARDO PALOMARES [facility] Date Jul 06, 2024 - - - - - - - - - - - - - - - - - - - - - - - - - - - - - - - - - - - - - - - - FLACA WEAVER STANDARD FORM 515 ID:[id number] SEX:M :1950 AGE: 73 LOC:13349 ADM:Jun DX:DIVERTICULITIS PCP: Jatinder Cabrera /alexi/ EDUARDO PALOMARES MD STAFF PATHOLOGIST Signed: 07/06/2024 10:40 EDUARDO PALOMARES [facility] Jun 22, 2024 01:15 PM LR MICROBIOLOGY RE PORT: Reporting Lab: [facility] [CLIA# [id number]] [place] [address] Accession [UID]: [id number] [[id number]] Received: Jun 22, 2024@13:38 Collection sample: FLUID Collection date: Jun 22, 2024 13:15 Provider: ANGELA HOLDEN Comment on specimen: LLQ ABSCESS, RECEIVED IN ANAEROBIC TRANSPORT VIAL Test(s) ordered: GRAM STAIN.................... completed: Jun 22, 2024 15:03 CULTURE & SUSCEPTIBILITY...... completed: Jun 25, 2024 * BACTERIOLOGY FINAL REPORT => Jun 25, 2024 10:56 TECH CODE: [id number] GRAM STAIN: DIRECT SMEAR of specimen before [...] -=--=--=--=--=--=--=-- Performing Laboratory: Bacteriology Report Performed By: [facility] [CLIA# [id number]] [place] [address] [facility] Jun 22, 2024 01:15 PM LR MICROBIOLOGY RE PORT: Reporting Lab: [facility] [CLIA# [id number]] [id number] Accession [UID]: [id number] [[id number]] Received: Jun 22, 2024@13:38 Collection sample: FLUID Collection date: Jun 22, 2024 13:15 Provider: ANGELA HOLDEN Comment on specimen: LLQ ABSCESS, RECEIVED IN ANAEROBIC TRANSPORT VIAL Test(s) ordered: ANAEROBIC CULTURE............. completed: Jun 28, 2024 * BACTERIOLOGY FINAL REPORT => Jun 28, 2024 10:08 [facility] CODE: [id number] CULTURE RESULTS: HEAVY GROWTH MIXED ANAEROBES Comment: including the followin+ Bacteroides fragilis 4+ Bacteroides vulgatus 4+ Clostridium innocuum Beta-lactamase negative 4+ Bacteroides caccae 4+ Parvimonas micra 4+ Bacteroides uniformis 4+ Gemella morbillorum 4+ anaerobic small, Gram Positive Rods 4+ Bacteroides thetaiotaomicron Standard workup is now complete. Bacteriology Remark(s): THIS REPORT IS FINAL =--=--=--=--=--=--=--=--=--= --=--=--=--=--=--=--=--=--=- -=--=--=--=--=--=--=-- Performing Laboratory: Bacteriology Report Performed By: [facility] [CLIA# [id number]] [place] [address] [facility] Jun 21, 2024 06:12 PM LR MICROBIOLOGY RE PORT: Reporting Lab: [facility] [IA# [id number]] [place] [address] Accession [UID]: [id number] [[id number]] Received: Jun 21, 2024@18:12 Collection sample: BLOOD [...] -=--=--=--=--=--=--=-- Performing Laboratory: Bacteriology Report Performed By: [facility] [IA# [id number]] [place] [address] [facility] Jun 21, 2024 06:11 PM LR MICROBIOLOGY RE PORT: Reporting Lab: [facility] [IA# [id number]] [place] [address] Accession [UID]: [id number] [[id number]] Received: Jun 21, 2024@18:11 Collection sample: BLOOD [...] -=--=--=--=--=--=--=-- Performing Laboratory: Bacteriology Report Performed By: [facility] [CLIA# [id number]] [address] [place] [address] [facility] Encounter Notes: All associated encounter notes This section contains the clinical notes associated to the Encounter. Date/Time Encounter Note(s) Provider Source Jul 10, 2024 01:00 AM CRITICAL CARE UNIT NOTE: LOCAL TITLE: [facility] RESPIRATORY THERAPY FLOWSHEET STANDARD TITLE: CRITICAL CARE UNIT NOTE DATE OF NOTE: JUL 10, 2024@01:00 ENTRY DATE: JUL 11, 2024@15:14:11 AUTHOR: SYSTEM,SMB Suite[employer] EXP COSIGNER: URGENCY: STATUS: COMPLETED This is a place aranda only. Please see [employer] to view document. /es/ SMB [employer] SYSTEM ICU DOCUMENT IMPORT Signed: 07/11/2024 15:14 SYSTEM,SMB Suite-[employer] [facility]K [facility] Jul 10, 2024 01:00 AM CRITICAL CARE UNIT NOTE: LOCAL TITLE: [facility] INPATIENT FLOWSHEET STANDARD TITLE: CRITICAL CARE UNIT NOTE DATE OF NOTE: JUL 10, 2024@01:00 ENTRY DATE: JUL 11, 2024@14:42:09 AUTHOR: SYSTEM,SMB Suite-ARK EXP COSIGNER: URGENCY: STATUS: COMPLETED This is a place aranda only. Please see [employer] to view document. /es/ [employer] SYSTEM ICU DOCUMENT IMPORT Signed: 07/11/2024 14:42 SYSTEM,SMB Suite[employer] [facility]
--- OUTSIDE RECORDS SUMMARY | 2024-07-16 07:24 | XMS_ITS | Encounter Summary ---
Author Name [facility] [facility] [place] Address [address] [place] [address] Care Team Providers Care Sample Card Maker Name Role Phone JATINDER CABRERA Primary Care [...] PART A Sep 29, 2016 PART A [id number] [phone] JUDY WEAVER PATIENT Selected Encounter This section includes the information on record at [place] for the Encounter. Date/Time Encounter Type Encounter Description Reason Pro vider Source Jun 25, 2024 07:45 AM Inpatient Visit ADMIN PAT ACTIVTIES (MASNONCT) MCKAY TOBIN Encounter Template Text not used by [place] [...] Date/Time Appointment Type Appointme nt Facility Name Jun 27, 2024 07:00 AM AMBULATORY - NONE [facility] Jun 27, 2024 07:30 AM AMBULATORY - MEDICINE [facility] Jun 27, 2024 08:00 AM AMBULATORY - MEDICINE [facility] Jul 03, 2024 05:55 AM AMBULATORY - NONE [facility] Jul 13, 2024 08:15 AM AMBULATORY NONE [facility] Active, Pending, and Scheduled Orders This section includes a listing of several types of active, pending, and scheduled orders, including clinic medications orders, diagnostic test orders, procedure orders and consult orders; where the start date of the order is 45 days before the date of the Encounter or 45 days after the date of theEncounter. The data comes from all [facility]. Test Date/Time Test Type Test Details Facility Name May 28, 2024 12:00 AM Laboratory - Blood Bank Order TYPE & SCREEN - LAB BLOOD SP [facility] Jun 08, 2024 09:57 AM Laboratory - Chemi stry Order URINALYSIS URINE WC ONCE [facility] Jun 12, 2024 12:00 AM Laboratory - Chemi stry Order BNP PLASMA SP ONCE [facility] Jun 21, 2024 05:45 PM Laboratory - Blood Bank Order TYPE & SCREEN - LAB BLOOD [facility] Jul 03, 2024 12:00 AM Laboratory - Blood Bank Order TYPE & SCREEN - LAB BLOOD [facility] Jul 16, 2024 12:00 AM Laboratory - Chemi stry Order CBC BLOOD SP ONCE [facility] Jul 17, 2024 12:00 AM Laboratory - Chemi stry Order BASIC METABOLIC PANEL+MG PLASMA SP ONCE [facility] Lab Results: +/- [...] Range Comment Jul 10, 2024 07:16 AM [facility] PHOSPHORUS Specimen Type: PLASMA No comment entered. Ordering Provider: JUANCARLOS ECHOLS Report Released Date/Time: Jul 09, 2024 12:23 PM Reporting Lab: [facility] [address] Performing Lab: [facility] [address] PHOSPHORUS 3.0 mg/dL 2.3-4.3 Jul 10, 2024 07:16 AM [facility] BASIC METABOLIC PANEL+MG Specimen Type: PLASMA No comment entered. Ordering Provider: JUANCARLOS ECHOLS S Report Released Date/Time: Jul 09, 2024 12:23 PM Reporting Lab: [facility] [address] Performing Lab: [facility] [address] CREATININE 0.7 mg/dL 0.7-1.2 UREA NITROGEN 27 mg/dL H 8-26 GLUCOSE 104 mg/dL H 70-100 SODIUM 133 mmol/L L 136-145 POTASSIUM 4.3 mmol/L 3.5-5.1 CHLORIDE 102 mmol/L 98-107 CO2 19 mmol/L L 22-29 CALCIUM 10.1 mg/dL 8.4-10.2 MAGNESIUM 1.9 mg/dL 1.6-2.6 ANION GAP 12 mmol/L 5-15 .CREAT EGFR(CKD-EPI) >90 >60 Jul 10, 2024 07:15 AM [facility] CBC Specimen Type: BLOOD No comment entered. Ordering Provider: JUANCARLOS ECHOLS S Report Released Date/Time: Jul 09, 2024 12:23 PM Reporting Lab: [facility] [address] Performing Lab: [facility] [address] WBC 18.8 H 4.0-11.0 RBC 5.08 4.60-6.20 HGB 15.9 g/dL 13.5-17.9 HCT 46.8 41.0-54.0 MCV 92.1 fL 80.0-100.0 MCH 31.3 pg 27.0-33.0 MCHC 34.0 g/dL 32.0-37.5 PLT 479 H 150-400 MPV 10.2 fL 9.1-13.0 RDW 13.7 11.5-14.5 Jul 09, 2024 07:08 AM [facility] CBC Specimen Type: BLOOD No comment entered. Ordering Provider: QUYNH WEISS AV Report Released Date/Time: Jul 08, 2024 06:18 PM Reporting Lab: [facility] [address] Performing Lab: [facility] [address] WBC 15.3 H 4.0-11.0 RBC 4.91 4.60-6.20 HGB 15.1 g/dL 13.5-17.9 HCT 45.7 41.0-54.0 MCV 93.1 fL 80.0-100.0 MCH 30.8 pg 27.0-33.0 MCHC 33.0 g/dL 32.0-37.5 PLT 443 H 150-400 MPV 10.0 fL 9.1-13.0 RDW 13.5 11.5-14.5 Jul 08, 2024 10:50 AM [facility] URINALYSIS Specimen Type: URINE No comment entered. Ordering Provider: KATELYNN PERSON Report Released Date/Time: Jul 08, 2024 08:41 AM Reporting Lab: [facility] [address] Performing Lab: [facility] [address] URINE COLOR YELLOW SPECIFIC GRAVITY >1.050 H [...] NEGATIVE NEGATIVE Jul 08, 2024 09:54 AM [facility] CBC Specimen Type: BLOOD Comment: Specimen received in Lab at: 0952 Ordering Provider: JUANCARLOS ECHOLS Report Released Date/Time: Jul 07, 2024 04:49 PM Reporting Lab: [facility] [address] Performing Lab: [facility] [address] WBC 17.5 H 4.0-11.0 RBC 4.88 4.60-6.20 HGB 14.9 g/dL 13.5-17.9 HCT 45.7 41.0-54.0 MCV 93.6 fL 80.0-100.0 MCH 30.5 pg 27.0-33.0 MCHC 32.6 g/dL 32.0-37.5 PLT 472 H 150-400 MPV 10.2 fL 9.1-13.0 RDW 13.7 11.5-14.5 Jul 08, 2024 09:54 AM [facility] PHOSPHORUS Specimen Type: PLASMA Comment: Specimen received in Lab at: 0952 Ordering Provider: JUANCARLOS ECHOLS Report Released Date/Time: Jul 07, 2024 04:49 PM Reporting Lab: [facility] [address] Performing Lab: [facility] [address] PHOSPHORUS 2.6 mg/dL 2.3-4.3 Jul 08, 2024 09:54 AM [facility] BASIC METABOLIC PANEL+MG Specimen Type: PLASMA Comment: Specimen received in Lab at: 0952 Ordering Provider: JUANCARLOS ECHOLS Report Released Date/Time: Jul 07, 2024 04:49 PM Reporting Lab: [facility] [address] Performing Lab: [facility] [address] CREATININE 0.9 mg/dL 0.7-1.2 UREA NITROGEN 26 mg/dL 8-26 GLUCOSE 128 mg/dL H 70-100 SODIUM 134 mmol/L L 136-145 POTASSIUM 3.4 mmol/L L 3.5-5.1 CHLORIDE 100 mmol/L 98-107 CO2 24 mmol/L 22-29 CALCIUM 9.8 mg/dL 8.4-10.2 MAGNESIUM 1.8 mg/dL 1.6-2.6 ANION GAP 10 mmol/L 5-15 .CREAT EGFR(CKD-EPI) >90 >60 Jul 07, 2024 02:00 PM [facility] C DIFF PANEL Specimen Type: FECES No comment entered. Ordering Provider: JEVON ZAZUETA Report Released Date/Time: Jul 07, 2024 12:26 PM Reporting Lab: [facility] [address] Performing Lab: [facility] [address] C DIFF TOX B GENE PCR NEGATIVE Negative Jul 07, 2024 07:41 AM [facility] PHOSPHORUS Specimen Type: PLASMA No comment entered. Ordering Provider: JEVON ZAZUETA Report Released Date/Time: Jul 06, 2024 03:44 PM Reporting Lab: [facility] [address] Performing Lab: [facility] [address] PHOSPHORUS 3.1 mg/dL 2.3-4.3 Jul 07, 2024 07:41 AM [facility] BASIC METABOLIC PANEL+MG Specimen Type: PLASMA No comment entered. Ordering Provider: JEVON ZAZUETA Report Released Date/Time: Jul 06, 2024 03:44 PM Reporting Lab: [facility] [address] Performing Lab: [facility] [address] CREATININE 0.9 mg/dL 0.7-1.2 UREA NITROGEN 20 mg/dL 8-26 GLUCOSE 157 mg/dL H 70-100 SODIUM 136 mmol/L 136-145 POTASSIUM 3.7 mmol/L 3.5-5.1 CHLORIDE 102 mmol/L 98-107 CO2 21 mmol/L L 22-29 CALCIUM 9.8 mg/dL 8.4-10.2 MAGNESIUM 1.9 mg/dL 1.6-2.6 ANION GAP 13 mmol/L 5-15 .CREAT EGFR(CKD-EPI) >90 >60 Jul 07, 2024 07:40 AM [facility] CBC Specimen Type: BLOOD No comment entered. Ordering Provider: JEVON ZAZUETA Report Released Date/Time: Jul 06, 2024 03:44 PM Reporting Lab: [facility] [address] Performing Lab: [facility] [address] WBC 21.2 H 4.0-11.0 RBC 5.09 4.60-6.20 HGB 15.9 g/dL 13.5-17.9 HCT 48.3 41.0-54.0 MCV 94.9 fL 80.0-100.0 MCH 31.2 pg 27.0-33.0 MCHC 32.9 g/dL 32.0-37.5 PLT 500 H 150-400 MPV 10.3 fL 9.1-13.0 RDW 13.6 11.5-14.5 Jul 06, 2024 07:21 AM [facility] CBC Specimen Type: BLOOD No comment entered. Ordering Provider: JEVON ZAZUETA Report Released Date/Time: Jul 05, 2024 01:22 PM Reporting Lab: [facility] [address] Performing Lab: [facility] [address] WBC 18.0 H 4.0-11.0 RBC 4.83 4.60-6.20 HGB 14.6 g/dL 13.5-17.9 HCT 45.5 41.0-54.0 MCV 94.2 fL 80.0-100.0 MCH 30.2 pg 27.0-33.0 MCHC 32.1 g/dL 32.0-37.5 PLT 368 150-400 MPV 10.4 fL 9.1-13.0 RDW 13.6 11.5-14.5 Jul 06, 2024 07:21 AM [facility] PHOSPHORUS Specimen Type: PLASMA No comment entered. Ordering Provider: JEVON ZAZUETA Report Released Date/Time: Jul 05, 2024 01:22 PM Reporting Lab: [facility] [address] Performing Lab: [facility] [address] PHOSPHORUS 3.6 mg/dL 2.3-4.3 Jul 06, 2024 07:21 AM [facility] BASIC METABOLIC PANEL+MG Specimen Type: PLASMA No comment entered. Ordering Provider: JEVON ZAZUETA Report Released Date/Time: Jul 05, 2024 01:22 PM Reporting Lab: [facility] [address] Performing Lab: [facility] [address] CREATININE 0.7 mg/dL 0.7-1.2 UREA NITROGEN 12 mg/dL 8-26 GLUCOSE 108 mg/dL H 70-100 SODIUM 138 mmol/L 136-145 POTASSIUM 3.4 mmol/L L 3.5-5.1 CHLORIDE 104 mmol/L 98-107 CO2 20 mmol/L L 22-29 CALCIUM 9.3 mg/dL 8.4-10.2 MAGNESIUM 1.9 mg/dL 1.6-2.6 ANION GAP 14 mmol/L 5-15 .CREAT EGFR(CKD-EPI) >90 >60 Jul 05, 2024 07:17 AM [facility] MAGNESIUM Specimen Type: PLASMA No comment entered. Ordering Provider: JUANCARLOS ECHOLS Report Released Date/Time: Jul 04, 2024 09:39 AM Reporting Lab: [facility] [address] Performing Lab: [facility] [address] MAGNESIUM 2.0 mg/dL 1.6-2.6 Jul 05, 2024 07:17 AM [facility] PHOSPHORUS Specimen Type: PLASMA No comment entered. Ordering Provider: JUANCARLOS ECHOLS S Report Released Date/Time: Jul 04, 2024 09:39 AM Reporting Lab: [facility] [address] Performing Lab: [facility] [address] PHOSPHORUS 2.0 mg/dL L 2.3-4.3 Jul 05, 2024 07:17 AM [facility] BASIC METABOLIC PANEL+MG Specimen Type: PLASMA No comment entered. Ordering Provider: JUANCARLOS ECHOLS S Report Released Date/Time: Jul 04, 2024 09:39 AM Reporting Lab: [facility] [address] Performing Lab: [facility] [address] CREATININE 0.7 mg/dL 0.7-1.2 UREA NITROGEN 12 mg/dL 8-26 GLUCOSE 84 mg/dL 70-100 SODIUM 135 mmol/L L 136-145 POTASSIUM 3.8 mmol/L 3.5-5.1 CHLORIDE 104 mmol/L 98-107 CO2 24 mmol/L 22-29 CALCIUM 9.3 mg/dL 8.4-10.2 MAGNESIUM 2.0 mg/dL 1.6-2.6 ANION GAP 7 mmol/L 5-15 .CREAT EGFR(CKD-EPI) >90 >60 Jul 05, 2024 07:16 AM [facility] CBC Specimen Type: BLOOD No comment entered. Ordering Provider: JUANCARLOS ECHOLS S Report Released Date/Time: Jul 04, 2024 09:39 AM Reporting Lab: [facility] [address] Performing Lab: [facility] [address] WBC 18.3 H 4.0-11.0 RBC 4.49 L 4.60-6.20 HGB 14.1 g/dL 13.5-17.9 HCT 43.4 41.0-54.0 MCV 96.7 fL 80.0-100.0 MCH 31.4 pg 27.0-33.0 MCHC 32.5 g/dL 32.0-37.5 PLT 317 150-400 MPV 10.0 fL 9.1-13.0 RDW 13.9 11.5-14.5 Jul 04, 2024 07:17 AM [facility] BASIC METABOLIC PANEL+MG Specimen Type: PLASMA No comment entered. Ordering Provider: GABINO CAMERON Report Released Date/Time: Jul 03, 2024 06:31 PM Reporting Lab: [facility] [address] Performing Lab: [facility] [address] CREATININE 0.7 mg/dL 0.7-1.2 UREA NITROGEN 16 mg/dL 8-26 GLUCOSE 129 mg/dL H 70-100 SODIUM 137 mmol/L 136-145 POTASSIUM 3.7 mmol/L 3.5-5.1 CHLORIDE 107 mmol/L 98-107 CO2 22 mmol/L 22-29 CALCIUM 9.0 mg/dL 8.4-10.2 MAGNESIUM 1.9 mg/dL 1.6-2.6 ANION GAP 8 mmol/L 5-15 .CREAT EGFR(CKD-EPI) >90 >60 Jul 04, 2024 07:17 AM [facility] PHOSPHORUS Specimen Type: PLASMA No comment entered. Ordering Provider: GABINO CAMERON Report Released Date/Time: Jul 03, 2024 06:31 PM Reporting Lab: [facility] [address] Performing Lab: [facility] [address] PHOSPHORUS 2.8 mg/dL 2.3-4.3 Jul 04, 2024 07:16 AM [facility] CBC Specimen Type: BLOOD No comment entered. Ordering Provider: GABINO CAMERON Report Released Date/Time: Jul 03, 2024 06:31 PM Reporting Lab: [facility] [address] Performing Lab: [facility] [address] WBC 20.6 H 4.0-11.0 RBC 4.63 4.60-6.20 HGB 14.2 g/dL 13.5-17.9 HCT 43.4 41.0-54.0 MCV 93.7 fL 80.0-100.0 MCH 30.7 pg 27.0-33.0 MCHC 32.7 g/dL 32.0-37.5 PLT 329 150-400 MPV 10.4 fL 9.1-13.0 RDW 13.8 11.5-14.5 Jul 04, 2024 07:16 AM [facility] CBC & DIFF Specimen Type: BLOOD Comment: Manual Differential Performed Ordering Provider: GABINO CAMERON Report Released Date/Time: Jul 03, 2024 06:31 PM Reporting Lab: [facility] [address] Performing Lab: [facility] [address] WBC 20.6 H 4.0-11.0 RBC 4.63 4.60-6.20 [...] MORPHOLOGY PRESENT Jul 04, 2024 07:15 AM [facility] BNP Specimen Type: PLASMA No comment entered. Ordering Provider: GABINO CAMERON Report Released Date/Time: Jul 03, 2024 06:31 PM Reporting Lab: [facility] [address] Performing Lab: [facility] [address] BNP 292 pg/mL H <99 Jul 03, 2024 10:32 PM [facility] FINGERSTICK GLUCOSE Specimen Type: BLOOD Comment: Save Result Nurse Notified Ordering Provider: KATELYNN PERSON Report Released Date/Time: Jul 03, 2024 10:50 PM Reporting Lab: [facility] [address] Performing Lab: [facility] [address] FINGERSTICK GLUCOSE 126 mg/dL H 70-100 Jul 03, 2024 05:33 PM [facility] FINGERSTICK GLUCOSE Specimen Type: BLOOD Comment: Save Result Nurse Notified Ordering Provider: KATELYNN PERSON Report Released Date/Time: Jul 03, 2024 05:46 PM Reporting Lab: [facility] [address] Performing Lab: [facility] [address] FINGERSTICK GLUCOSE 141 mg/dL H 70-100 Jul 03, 2024 02:31 PM [facility] POC ABG/ELECTROLYTES Specimen Type: ARTERIAL BLOOD Comment: FIO2 = 97% Patient Temp: 36.0 C Sample Type = ARTERIAL Ordering Provider: MAZIN ARREDONDO Report Released Date/Time: Jul 03, 2024 01:48 PM Reporting Lab: [facility] [address] Performing Lab: [facility] [address] POC PH 7.387 7.35-7.45 POC PCO2 34.4 [...] H 80.0-105.0 Jul 03, 2024 01:05 PM [facility] POC ABG/ELECTROLYTES Specimen Type: ARTERIAL BLOOD Comment: FIO2 = 53% Patient Temp: 36.2 C Sample Type = ARTERIAL Ordering Provider: MAZIN ARREDONDO Report Released Date/Time: Jul 03, 2024 01:48 PM Reporting Lab: [facility] [address] Performing Lab: [facility] [address] POC PH 7.280 L 7.35-7.45 POC PCO2 [...] mm[Hg] 80.0-105.0 Jul 03, 2024 06:15 AM [facility] URINALYSIS Specimen Type: URINE No comment entered. Ordering Provider: MARYBETH POWELL Report Released Date/Time: Jun 12, 2024 04:01 PM Reporting Lab: [facility] [address] Performing Lab: [facility] [address] URINE COLOR YELLOW SPECIFIC GRAVITY 1.031 1.003-1.03 [...] 250 NEGATIVE Jul 03, 2024 06:13 AM [facility] CBC Specimen Type: BLOOD No comment entered. Ordering Provider: MARYBETH POWELL Report Released Date/Time: Jun 12, 2024 03:59 PM Reporting Lab: [facility] [address] Performing Lab: [facility] [address] WBC 15.8 H 4.0-11.0 RBC 5.11 4.60-6.20 HGB 16.1 g/dL 13.5-17.9 HCT 49.1 41.0-54.0 MCV 96.1 fL 80.0-100.0 MCH 31.5 pg 27.0-33.0 MCHC 32.8 g/dL 32.0-37.5 PLT 357 150-400 MPV 9.8 fL 9.1-13.0 RDW 13.7 11.5-14.5 Jun 24, 2024 09:50 AM [facility] BASIC METABOLIC PANEL+MG Specimen Type: PLASMA Comment: Specimen received in Lab at: 0948 Ordering Provider: JEVON ZAZUETA Report Released Date/Time: Jun 23, 2024 06:07 PM Reporting Lab: [facility] [address] Performing Lab: [facility] [address] CREATININE 0.8 mg/dL 0.7-1.2 UREA NITROGEN 13 mg/dL 8-26 GLUCOSE 135 mg/dL H 70-100 SODIUM 135 mmol/L L 136-145 POTASSIUM 3.6 mmol/L 3.5-5.1 CHLORIDE 103 mmol/L 98-107 CO2 24 mmol/L 22-29 CALCIUM 9.2 mg/dL 8.4-10.2 MAGNESIUM 1.9 mg/dL 1.6-2.6 ANION GAP 8 mmol/L 5-15 .CREAT EGFR(CKD-EPI) >90 >60 Jun 24, 2024 09:50 AM [facility] CBC Specimen Type: BLOOD Comment: Specimen received in Lab at: 0948 Ordering Provider: JEVON ZAZUETA Report Released Date/Time: Jun 23, 2024 06:07 PM Reporting Lab: [facility] [address] Performing Lab: [facility] [address] WBC 15.5 H 4.0-11.0 RBC 4.93 4.60-6.20 HGB 15.2 g/dL 13.5-17.9 HCT 46.5 41.0-54.0 MCV 94.3 fL 80.0-100.0 MCH 30.8 pg 27.0-33.0 MCHC 32.7 g/dL 32.0-37.5 PLT 223 150-400 MPV 11.4 fL 9.1-13.0 RDW 13.9 11.5-14.5 Jun 23, 2024 07:52 AM [facility] COMPREHENSIVE METABOLIC PANEL+MG Specimen Type: PLASMA No comment entered. Ordering Provider: JEVON ZAZUETA Report Released Date/Time: Jun 22, 2024 05:51 PM Reporting Lab: [facility] [address] Performing Lab: [facility] [address] CREATININE 0.7 mg/dL 0.7-1.2 UREA NITROGEN 16 [...] >90 >60 Jun 23, 2024 07:52 AM [facility] CBC & DIFF Specimen Type: BLOOD Comment: Automated Differential Performed Ordering Provider: JEVON ZAZUETA Report Released Date/Time: Jun 22, 2024 05:51 PM Reporting Lab: [facility] [address] Performing Lab: [facility] [address] WBC 14.9 H 4.0-11.0 RBC 5.09 4.60-6.20 [...] 0.1 0.0-0.1 Jun 22, 2024 06:10 PM [facility] CBC Specimen Type: BLOOD No comment entered. Ordering Provider: JEVON ZAZUETA Report Released Date/Time: Jun 22, 2024 05:51 PM Reporting Lab: [facility] [address] Performing Lab: [facility] [address] WBC 16.9 H 4.0-11.0 RBC 5.28 4.60-6.20 HGB 16.9 g/dL 13.5-17.9 HCT 50.4 41.0-54.0 MCV 95.5 fL 80.0-100.0 MCH 32.0 pg 27.0-33.0 MCHC 33.5 g/dL 32.0-37.5 PLT 223 150-400 MPV 10.9 fL 9.1-13.0 RDW 14.0 11.5-14.5 Jun 22, 2024 06:10 PM [facility] COMPREHENSIVE METABOLIC PANEL+MG Specimen Type: PLASMA No comment entered. Ordering Provider: JEVON ZAZUETA Report Released Date/Time: Jun 22, 2024 05:51 PM Reporting Lab: [facility] [address] Performing Lab: [facility] [address] CREATININE 0.7 mg/dL 0.7-1.2 UREA NITROGEN 17 [...] >90 >60 Jun 21, 2024 06:48 PM [facility] URINALYSIS Specimen Type: URINE No comment entered. Ordering Provider: DELIA MARTINEZ Report Released Date/Time: Jun 21, 2024 05:45 PM Reporting Lab: [facility] [address] Performing Lab: [facility] [address] URINE COLOR YELLOW SPECIFIC GRAVITY 1.041 H [...] 500 NEGATIVE Jun 21, 2024 05:34 PM [facility] POC CREATININE Specimen Type: BLOOD No comment entered. Ordering Provider: DELIA MARTINEZ Report Released Date/Time: Jun 21, 2024 06:07 PM Reporting Lab: [facility] [address] Performing Lab: [facility] [address] POC CREATININE 1.1 mg/dL 0.6-1.3 Jun 21, 2024 05:30 PM [facility] POC ABG/LACTATE Specimen Type: VENOUS BLOOD No comment entered. Ordering Provider: DELIA MARTINEZ Report Released Date/Time: Jun 21, 2024 06:07 PM Reporting Lab: [facility] [address] Performing Lab: [facility] [address] POC PH 7.470 H 7.31-7.41 POC PCO2 31.2 mm[Hg] L 41.00-51 .0 0 POC PO2 46 mm[Hg] H 35.0-40.0 POC TCO2 24 mmol/L 24.0-29.0 POC HCO3 22.7 mmol/L L 23.0-28.0 POC BE ECT -1 mmol/L POC SO2 85 H 70-75 POC LACTATE 1.85 mmol/L 0.90-1.70 Jun 21, 2024 05:24 PM [facility] PROTHROMBIN TIME/INR Specimen Type: PLASMA No comment entered. Ordering Provider: DELIA MARTINEZ Report Released Date/Time: Jun 21, 2024 05:30 PM Reporting Lab: [facility] [address] Performing Lab: [facility] [address] .INR 1.2 H 0.8-1.1 .PT 13.9 s H 9.4-12.5 Jun 21, 2024 05:24 PM [facility] LIPASE Specimen Type: PLASMA No comment entered. Ordering Provider: DELIA MARTINEZ Report Released Date/Time: Jun 21, 2024 05:30 PM Reporting Lab: [facility] [address] Performing Lab: [facility] [address] LIPASE 32 U/L <60 Jun 21, 2024 05:24 PM [facility] EXTRA GOLD GEL TUBE Specimen Type: SERUM No comment entered. Ordering Provider: DELIA MARTINEZ Report Released Date/Time: Jun 21, 2024 05:41 PM Reporting Lab: [facility] [address] Performing Lab: [facility] [address] EXTRA GOLD GEL TUBE RECEIVED Jun 21, 2024 05:24 PM [facility] COMPREHENSIVE METABOLIC PANEL+MG Specimen Type: PLASMA No comment entered. Ordering Provider: DELIA MARTINEZ Report Released Date/Time: Jun 21, 2024 05:30 PM Reporting Lab: [facility] [address] Performing Lab: [facility] [address] CREATININE 0.9 mg/dL 0.7-1.2 UREA NITROGEN 29 [...] mg/dL <0.5 Jun 21, 2024 05:24 PM [facility] CBC & DIFF Specimen Type: BLOOD Comment: Manual Differential Performed Ordering Provider: DELIA MARTINEZ Report Released Date/Time: Jun 21, 2024 05:30 PM Reporting Lab: [facility] [address] Performing Lab: [facility] [address] WBC 21.3 H 4.0-11.0 RBC 5.48 4.60-6.20 [...] MORPHOLOGY PRESENT Jun 08, 2024 10:59 AM [facility] PROTHROMBIN TIME/INR Specimen Type: PLASMA No comment entered. Ordering Provider: MARYBETH POWELL Report Released Date/Time: May 28, 2024 09:02 AM Reporting Lab: [facility] [address] Performing Lab: [facility] [address] .INR 1.0 0.8-1.1 .PT 11.8 s 9.4-12.5 Jun 08, 2024 10:59 AM [facility] CBC Specimen Type: BLOOD No comment entered. Ordering Provider: MARYBETH POWELL Report Released Date/Time: May 28, 2024 09:02 AM Reporting Lab: [facility] [phone] Performing Lab: [facility] [phone] WBC 16.1 H 4.0-11.0 RBC 5.02 4.60-6.20 HGB 16.0 g/dL 13.5-17.9 HCT 47.1 41.0-54.0 MCV 93.8 fL 80.0-100.0 MCH 31.9 pg 27.0-33.0 MCHC 34.0 g/dL 32.0-37.5 PLT 228 150-400 MPV 10.3 fL 9.1-13.0 RDW 14.6 H 11.5-14.5 Jun 08, 2024 10:59 AM [facility] HEMOGLOBIN A1C Specimen Type: BLOOD Comment: [...] May 28, 2024 09:02 AM Reporting Lab: [facility] [phone] Performing Lab: [facility] [phone] HEMOGLOBIN A1C 4.9 4.0-6.0 Jun 08, 2024 10:59 AM [facility] BASIC METABOLIC PANEL+MG Specimen Type: PLASMA No comment entered. Ordering Provider: MARYBETH POWELL Report Released Date/Time: May 28, 2024 09:02 AM Reporting Lab: [facility] [phone] Performing Lab: [facility] [phone] CREATININE 0.9 mg/dL 0.7-1.2 UREA NITROGEN 15 [...] Pain Height Weight Body Mass Index Source Jun 25, 2024 01:51 AM 3 [facility] Social History: Smoking [...] 15, 2024 08:30 AM [place]-TOBACCO FORMER USER [facility] Tobacco Use History This section includes a history of the smoking, or tobacco-related health factors, that were collected on or before the date of the Encounter. The data comes from the [place] facility where the Encounter took place. Date/Time Smoking Status/Tobacco Use Comment F acility May 15, 2024 08:30 AM [place]-TOBACCO QUIT 15 YRS OR MORE [facility] May 06, 2023 11:30 AM [place]-TOBACCO FORMER USER [facility] May 06, 2023 11:30 AM [place]-TO[place] QUIT [facility] YRS OR MORE [facility] [...] VIEWS PA A ND LAT: FLACA WEAVER [id number] -1950 M Exm Date: JUL 08, 2024@10:09 Req Phys: KATELYNN PERSON Loc: G07-08-2024@11:49 Img Loc: MAIN X-RAY Service: [place] [address] (Case 24 COMPLETE) CHEST 2 VIEWS PA AND LAT (RAD Detailed) CPT:29033 Reason for Study: Uptrending WBC, POD 5 Clinical History: [place] IS NOT under investigation for COVID-19 or is COVID-19 negative POD 5, work up for uptrending wbc Responsible provider name and phone number to notify for critical findings if other than user placing the order and pager listed below: User placing orders pager: Katelynn Person LAST CREATININE 0.9 (07/07/24) Report Status: Verified Date Reported: JUL 08, 2024 Date Verified: JUL 08, 2024 Chief Information Security Officer E-Sig: Report: CHEST 2 VIEWS PA AND [...] cardiopulmonary disease. READING PHYSICIAN: Sarbjit Vaughn M.D. -[phone] 07/08/2024 12:46 EST [facility] [phone] (For Medical Practitioner Use Only) Attention Patients / Veterans: If you have questions or concerns about these test results, please contact your ordering provider or primary care team. Primary Interpreting Staff: RADIOLOGY,OUTSIDE SERVICE, Staff Physician / RADIOLOGY,OUTSIDE SERVICE [facility] Jul 08, 2024 10:[address] (AP) ABDOMEN/PE LVIS W CONTRAST: FLACA WEAVER [id number] -1950 M Ex Date: JUL 08, 2024@10:00 Req Phys: KATELYNN PERSON Pat Loc: 07-08-2024@12:07 Img Loc: CT IMAGING Service: [place] [address] (Case 22 COMPLETE) CT (AP) ABDOMEN/PELVIS W CONTRAST(CT Detailed) CPT:00045 Contrast Media : Non-ionic Iodinated Reason for [...] PLASMA .CREAT EGFR(CKD-E >90 Ref: >=60 Allergies: ([place] only) TERAZOSIN (Mar 13, 2015) Report Status: Verified Date Reported: JUL 08, 2024 Date Verified: JUL 08, 2024 Chief Information Security Officer E-Sig: Report: CT (AP) ABDOMEN/PELVIS W CONTRAST [...] as noted above READING PHYSICIAN: Celestino Blanc -[id number] 07/08/2024 13:04 [email or web address] [phone] (For Medical Practitioner Use Only) Attention Patients / Veterans: If you have questions or concerns about these test results, please contact your ordering provider or primary care team. Primary Interpreting Staff: RADIOLOGY,OUTSIDE SERVICE, Staff Physician / RADIOLOGY,OUTSIDE SERVICE [facility] Jun 22, 2024 11:49 AM ABSCESS DRAIN PLAC EMENT PERITONEAL (P): FLACA WEAVER [id number] -1950 M Exm Date: JUN 22, 2024@11:49 Req Phys: ANGELA HOLDEN Loc: [facility]06-22-2024@17:14 Img Loc: INTERVENTIONAL RADIOLOGY Service: [place] [address] (Case [id number] COMPLETE) IR PERITONEAL/RETROPERITONEAL PER(ANI Detailed) CPT:22368 Reason for Study: diverticulitis with abscess (Case [id number] COMPLETE) IR MOD SEDATION 10-22 MIN (ANI Detailed) CPT:98703 Clinical History: Carney IS NOT under investigation for COVID-19 or is COVID-19 negative 73 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 please place abscess drain. Contact number for responsible provider who can be reached for any questions or notifications of critical findings: [phone] n/a LAST CREATININE 0.9 (06/21/24) Report Status: Verified Date Reported: JUN 22, 2024 Date Verified: JUN 22, 2024 Chief Information Security Officer E-Sig:/ES/LISA PENDLETON MD Report: PROCEDURES: Placement of [...] Using real-time CT fluoroscopy, a 5 Guatemalan 8eighty Wearesis catheter was advanced into the collection in the left pelvis. A wire was coiled in the collection. The tract into the collection was dilated to accommodate the 12 Guatemalan locking pigtail drainage catheter. There was return [...] Interpreting Staff: LISA PENDLETON MD, RADIOLOGIST (Chief Information Security Officer) /JRLISA [facility] Jun 22, 2024 11:[address] NEEDLE PLACEMEN T (P): FLACA WEAVER [id number] -1950 M Exm Date: JUN 22, 2024@11:48 Req Phys: ANGELA HOLDEN Loc: [facility]/06-22-2024@17:14 Img Loc: CT IMAGING Service: [place] [address] (Case [id number] COMPLETE) CT SCAN FOR NEEDLE PLACEMENT (CT Detailed) CPT:63730 Reason for Study: l pelvic abscess drain Clinical History: Report Status: Verified Date Reported: JUN 22, 2024 Date Verified: JUN 22, 2024 Chief Information Security Officer E-Sig:/ES/LISA PENDLETON MD Report: PROCEDURES: Placement of [...] Using real-time CT fluoroscopy, a 5 Guatemalan 8eighty Wearesis catheter was advanced into the collection in the left pelvis. A wire was coiled in the collection. The tract into the collection was dilated to accommodate the 12 [place] locking pigtail drainage catheter. There was return [...] Interpreting Staff: LISA PENDLETON MD, RADIOLOGIST (Chief Information Security Officer) /JRT LISA PENDLETON [facility] Jun 21, 2024 06:[address] (AP) ABDOMEN/PE LVIS (P): FLACA WEAVER [id number] -1950 M Exm Date: JUN 21, 2024@18:09 Req Phys: DELIA MARTINEZ Pat Loc: [facility] EMERGENCY DEPT WALK-IN (Re Img Loc: CT IMAGING Service: [place] [address] (Case [id number] COMPLETE) CT (AP) ABDOMEN/PELVIS W CONTRAST(CT Detailed) CPT:85664 Contrast Media : Non-ionic Iodinated Reason for [...] PLASMA .CREAT EGFR(CKD-E >90 Ref: >=60 Allergies: ([place] only) TERAZOSIN (Mar 13, 2015) Defer to [...] 21, 2024 Date Verified: JUN 21, 2024 Chief Information Security Officer E-Sig:/ALEXI/CARLOS A CUNNINGHAM DO Report: EXAMINATION: CT [...] Interpreting Staff: CARLOS A CUNNINGHAM DO, RADIOLOGIST (Chief Information Security Officer) /CARLOS A ROWELL [facility] Pathology Reports: +/- [...] COSIGNER: URGENCY: STATUS: COMPLETED $APHDR Reporting Lab: [facility] [CLIA# [id number]] [place] [address] - - - - - - - [...] - PATHOLOGY REPORT Accession No. [id number] - - - - - - - [...] - PATHOLOGY REPORT Accession No. [id number] - - - - - - - [...] Second circumferential surgical margin, en face; E-F: [facility] diverticula; G: [facility] section of mesentery; H: Random territory representative section of additional adipose tissue fragment. [...] Performing Laboratory: Surgical Pathology Report Performed By: [facility] [CLIA# [id number]] [place] [address] $FTR - - - - - - [...] - - FLACA WEAVER STANDARD FORM 515 ID:[id number] SEX:M :1950 AGE: 73 LOC:58327 ADM:Jun DX:DIVERTICULITIS PCP: Jatinder Cabrera /alexi/ EDUARDO PALOMARES MD STAFF PATHOLOGIST Signed: 07/06/2024 10:40 EDUARDO PALOMARES [facility] Jun 22, 2024 01:15 PM LR MICROBIOLOGY RE PORT: Reporting Lab: [facility] [CLIA# [id number]] [place] [address] Accession [UID]: [id number] [[id number]] Received: Jun 22, 2024@13:38 Collection sample: FLUID Collection date: Jun 22, 2024 13:15 Provider: ANGELA HOLDEN Comment on specimen: LLQ ABSCESS, RECEIVED IN ANAEROBIC TRANSPORT VIAL Test(s) ordered: GRAM STAIN.................... completed: Jun 22, 2024 15:03 CULTURE & SUSCEPTIBILITY...... completed: Jun 25, 2024 * BACTERIOLOGY FINAL REPORT => Jun 25, 2024 10:56 TECH CODE: [id number] GRAM STAIN: DIRECT SMEAR of specimen before [...] -=--=--=--=--=--=--=-- Performing Laboratory: Bacteriology Report Performed By: [facility] [CLIA# [id number]] [place] [address] [facility] Jun 22, 2024 01:15 PM LR MICROBIOLOGY RE PORT: Reporting Lab: [facility] [CLIA# [id number]] [place] [address] Accession [UID]: [id number] [[id number]] Received: Jun 22, 2024@13:38 Collection sample: FLUID Collection date: Jun 22, 2024 13:15 Provider: ANGELA HOLDEN Comment on specimen: LLQ ABSCESS, RECEIVED IN ANAEROBIC TRANSPORT VIAL Test(s) ordered: ANAEROBIC CULTURE............. completed: Jun 28, 2024 * BACTERIOLOGY FINAL REPORT => Jun 28, 2024 10:08 TECH CODE: [id number] CULTURE RESULTS: HEAVY GROWTH MIXED ANAEROBES Comment: including the followin+ Bacteroides fragilis 4+ Bacteroides vulgatus 4+ Clostridium innocuum Beta-lactamase negative 4+ Bacteroides caccae 4+ Parvimonas micra 4+ Bacteroides uniformis 4+ Gemella morbillorum 4+ anaerobic small, Gram Positive Rods 4+ Bacteroides thetaiotaomicron Standard workup is now complete. Bacteriology Remark(s): THIS REPORT IS FINAL =--=--=--=--=--=--=--=--=--= --=--=--=--=--=--=--=--=--=- -=--=--=--=--=--=--=-- Performing Laboratory: Bacteriology Report Performed By: [facility] [CLIA# [id number]] [place] [address] [facility] Jun 21, 2024 06:12 PM LR MICROBIOLOGY RE PORT: Reporting Lab: [facility] [CLIA# [id number]] [place] [address] Accession [UID]: [id number] [[id number]] Received: Jun 21, 2024@18:12 Collection sample: BLOOD [...] -=--=--=--=--=--=--=-- Performing Laboratory: Bacteriology Report Performed By: [facility] [CLIA# [id number]] [place] [address] [facility] Jun 21, 2024 06:11 PM LR MICROBIOLOGY RE PORT: Reporting Lab: [facility] [CLIA# [id number]] [place] [address] Accession [UID]: [id number] [[id number]] Received: Jun 21, 2024@18:11 Collection sample: BLOOD [...] -=--=--=--=--=--=--=-- Performing Laboratory: Bacteriology Report Performed By: [facility] [CLIA# [id number]] [place] [address] [facility] Jun 08, 2024 11:00 AM LR MICROBIOLOGY RE PORT: Reporting Lab: [facility] [CLIA# [id number]] [place] [address] Accession [UID]: [id number] [[id number]] Received: Jun 08, 2024@11:00 Collection sample: URINE Collection date: Jun 08, 2024 11:00 Provider: MARYBETH POWELL Comment on specimen: urine Test(s) ordered: CULTURE & SUSCEPTIBILITY...... completed: Jun 09, 2024 * BACTERIOLOGY FINAL REPORT => Jun 09, 2024 19:12 TECH CODE: [id number] CULTURE RESULTS: ESCHERICHIA COLI - Quantity: >100,000 [...] -=--=--=--=--=--=--=-- Performing Laboratory: Bacteriology Report Performed By: [facility] [CLIA# [id number]] [place] [address] [facility]
--- OUTSIDE RECORDS SUMMARY | 2024-07-16 07:24 | XMS_ITS | Encounter Summary ---
Author Name [facility] [facility] [place] Address [address] [place] [address] Care Team Providers Care Supply Chain Director Name Role Phone JATINDER CABRERA Primary [...] PART A Sep 29, 2016 PART A [id number] [phone] JUDY WEAVER PATIENT Selected Encounter This section includes the information on record at [place] for the Encounter. Date/Time Encounter Type Encounter Description Reason Pro vider Source Jul 11, 2024 03:48 PM Outpatient Encounter ADMIN PAT ACTIVTIES (MASNONCT) [...] 13, 2024 08:15 AM AMBULATORY - NONE [facility] Active, Pending, and Scheduled Orders This section includes a listing of several types of active, pending, and scheduled orders, including clinic medications orders, diagnostic test orders, procedure orders and consult orders; where the start date of the order is 45 days before the date of the Encounter or 45 days after the date of theEncounter. The data comes from all [place] treatment facilities. Test Date/Time Test Type Test Details Facility Name May 28, 2024 12:00 AM Laboratory - Blood Bank Order TYPE & SCREEN - LAB BLOOD SP [facility] Jun 08, 2024 09:57 AM Laboratory - Chemi stry Order URINALYSIS URINE WC ONCE [facility] Jun 12, 2024 12:00 AM Laboratory - Chemi stry Order BNP PLASMA SP ONCE [facility] Jun 21, 2024 05:45 PM Laboratory - Blood Bank Order TYPE & SCREEN - LAB BLOOD WC [facility] Jul 03, 2024 12:00 AM Laboratory - Blood Bank Order TYPE & SCREEN - LAB BLOOD WC [facility] Jul 16, 2024 12:00 AM Laboratory - Chemi stry Order CBC BLOOD SP ONCE [facility] Jul 17, 2024 12:00 AM Laboratory - Chemi stry Order BASIC METABOLIC PANEL+MG PLASMA SP ONCE [facility] Lab Results: +/- 30 days of the encounter This section includes the Chemistry and Hematology Lab Results on record with [place] for the patient. Radiology Reports and Pathology Reports are provided separately, in subsequent sections. Lab Results This section contains the Chemistry/Hematology Results that were resulted 30 days before or 30 daysafter the date of the Encounter. Date/Time Source Result Type Result - Unit Interpretation Reference Range Comment Jul 10, 2024 07:16 AM [facility] PHOSPHORUS Specimen Type: PLASMA No comment entered. Ordering Provider: JUANCARLOS ECHOLS S Report Released Date/Time: Jul 09, 2024 12:23 PM Reporting Lab: [facility] [address] Performing Lab: [facility] [address] PHOSPHORUS 3.0 mg/dL 2.3-4.3 Jul 10, 2024 07:16 AM [facility] BASIC METABOLIC PANEL+MG Specimen Type: PLASMA No comment entered. Ordering Provider: JUANCARLOS ECHOLS S Report Released Date/Time: Jul 09, 2024 12:23 PM Reporting Lab: [facility] [address] Performing Lab: [facility] [address] CREATININE 0.7 mg/dL 0.7-1.2 UREA NITROGEN 27 mg/dL H 8-26 GLUCOSE 104 mg/dL H 70-100 SODIUM 133 mmol/L L 136-145 POTASSIUM 4.3 mmol/L 3.5-5.1 CHLORIDE 102 mmol/L 98-107 CO2 19 mmol/L L 22-29 CALCIUM 10.1 mg/dL 8.4-10.2 MAGNESIUM 1.9 mg/dL 1.6-2.6 ANION GAP 12 mmol/L 5-15 .CREAT EGFR(CKD-EPI) >90 >60 Jul 10, 2024 07:15 AM [facility] CBC Specimen Type: BLOOD No comment entered. Ordering Provider: JUANCARLOS ECHOLS S Report Released Date/Time: Jul 09, 2024 12:23 PM Reporting Lab: [facility] [address] Performing Lab: [facility] [address] WBC 18.8 H 4.0-11.0 RBC 5.08 4.60-6.20 HGB 15.9 g/dL 13.5-17.9 HCT 46.8 41.0-54.0 MCV 92.1 fL 80.0-100.0 MCH 31.3 pg 27.0-33.0 MCHC 34.0 g/dL 32.0-37.5 PLT 479 H 150-400 MPV 10.2 fL 9.1-13.0 RDW 13.7 11.5-14.5 Jul 09, 2024 07:08 AM [facility] CBC Specimen Type: BLOOD No comment entered. Ordering Provider: QUYNH WEISS AV Report Released Date/Time: Jul 08, 2024 06:18 PM Reporting Lab: [facility] [address] Performing Lab: [facility] [address] WBC 15.3 H 4.0-11.0 RBC 4.91 4.60-6.20 HGB 15.1 g/dL 13.5-17.9 HCT 45.7 41.0-54.0 MCV 93.1 fL 80.0-100.0 MCH 30.8 pg 27.0-33.0 MCHC 33.0 g/dL 32.0-37.5 PLT 443 H 150-400 MPV 10.0 fL 9.1-13.0 RDW 13.5 11.5-14.5 Jul 08, 2024 10:50 AM [facility] URINALYSIS Specimen Type: URINE No comment entered. Ordering Provider: KATELYNN PERSON Report Released Date/Time: Jul 08, 2024 08:41 AM Reporting Lab: [facility] [address] Performing Lab: [facility] [address] URINE COLOR YELLOW SPECIFIC GRAVITY >1.050 H [...] NEGATIVE NEGATIVE Jul 08, 2024 09:54 AM [facility] CBC Specimen Type: BLOOD Comment: Specimen received in Lab at: [id number] Ordering Provider: JUANCARLOS ECHOLS Report Released Date/Time: Jul 07, 2024 04:49 PM Reporting Lab: [facility] [address] Performing Lab: [facility] [address] WBC 17.5 H 4.0-11.0 RBC 4.88 4.60-6.20 HGB 14.9 g/dL 13.5-17.9 HCT 45.7 41.0-54.0 MCV 93.6 fL 80.0-100.0 MCH 30.5 pg 27.0-33.0 MCHC 32.6 g/dL 32.0-37.5 PLT 472 H 150-400 MPV 10.2 fL 9.1-13.0 RDW 13.7 11.5-14.5 Jul 08, 2024 09:54 AM [facility] PHOSPHORUS Specimen Type: PLASMA Comment: Specimen received in Lab at: 0952 Ordering Provider: JUANCARLOS ECHOLS S Report Released Date/Time: Jul 07, 2024 04:49 PM Reporting Lab: [facility] [address] Performing Lab: [facility] [address] PHOSPHORUS 2.6 mg/dL 2.3-4.3 Jul 08, 2024 09:54 AM [facility] BASIC METABOLIC PANEL+MG Specimen Type: PLASMA Comment: Specimen received in Lab at: 0952 Ordering Provider: JUANCARLOS ECHOLS S Report Released Date/Time: Jul 07, 2024 04:49 PM Reporting Lab: [facility] [address] Performing Lab: [facility] [address] CREATININE 0.9 mg/dL 0.7-1.2 UREA NITROGEN 26 mg/dL 8-26 GLUCOSE 128 mg/dL H 70-100 SODIUM 134 mmol/L L 136-145 POTASSIUM 3.4 mmol/L L 3.5-5.1 CHLORIDE 100 mmol/L 98-107 CO2 24 mmol/L 22-29 CALCIUM 9.8 mg/dL 8.4-10.2 MAGNESIUM 1.8 mg/dL 1.6-2.6 ANION GAP 10 mmol/L 5-15 .CREAT EGFR(CKD-EPI) >90 >60 Jul 07, 2024 02:00 PM [facility] C DIFF PANEL Specimen Type: FECES No comment entered. Ordering Provider: JEVON ZAZUETA Report Released Date/Time: Jul 07, 2024 12:26 PM Reporting Lab: [facility] [address] Performing Lab: [facility] [address] C DIFF TOX B GENE PCR NEGATIVE Negative Jul 07, 2024 07:41 AM [facility] PHOSPHORUS Specimen Type: PLASMA No comment entered. Ordering Provider: JEVON ZAZUETA Report Released Date/Time: Jul 06, 2024 03:44 PM Reporting Lab: [facility] [address] Performing Lab: [facility] [address] PHOSPHORUS 3.1 mg/dL 2.3-4.3 Jul 07, 2024 07:41 AM [facility] BASIC METABOLIC PANEL+MG Specimen Type: PLASMA No comment entered. Ordering Provider: JEVON ZAZUETA Report Released Date/Time: Jul 06, 2024 03:44 PM Reporting Lab: [facility] [address] Performing Lab: [facility] [address] CREATININE 0.9 mg/dL 0.7-1.2 UREA NITROGEN 20 mg/dL 8-26 GLUCOSE 157 mg/dL H 70-100 SODIUM 136 mmol/L 136-145 POTASSIUM 3.7 mmol/L 3.5-5.1 CHLORIDE 102 mmol/L 98-107 CO2 21 mmol/L L 22-29 CALCIUM 9.8 mg/dL 8.4-10.2 MAGNESIUM 1.9 mg/dL 1.6-2.6 ANION GAP 13 mmol/L 5-15 .CREAT EGFR(CKD-EPI) >90 >60 Jul 07, 2024 07:40 AM [facility] CBC Specimen Type: BLOOD No comment entered. Ordering Provider: JEVON ZAZUETA Report Released Date/Time: Jul 06, 2024 03:44 PM Reporting Lab: [facility] [address] Performing Lab: [facility] [address] WBC 21.2 H 4.0-11.0 RBC 5.09 4.60-6.20 HGB 15.9 g/dL 13.5-17.9 HCT 48.3 41.0-54.0 MCV 94.9 fL 80.0-100.0 MCH 31.2 pg 27.0-33.0 MCHC 32.9 g/dL 32.0-37.5 PLT 500 H 150-400 MPV 10.3 fL 9.1-13.0 RDW 13.6 11.5-14.5 Jul 06, 2024 07:21 AM [facility] CBC Specimen Type: BLOOD No comment entered. Ordering Provider: JEVON ZAZUETA Report Released Date/Time: Jul 05, 2024 01:22 PM Reporting Lab: [facility] [address] Performing Lab: [facility] [address] WBC 18.0 H 4.0-11.0 RBC 4.83 4.60-6.20 HGB 14.6 g/dL 13.5-17.9 HCT 45.5 41.0-54.0 MCV 94.2 fL 80.0-100.0 MCH 30.2 pg 27.0-33.0 MCHC 32.1 g/dL 32.0-37.5 PLT 368 150-400 MPV 10.4 fL 9.1-13.0 RDW 13.6 11.5-14.5 Jul 06, 2024 07:21 AM [facility] PHOSPHORUS Specimen Type: PLASMA No comment entered. Ordering Provider: JEVON ZAZUETA Report Released Date/Time: Jul 05, 2024 01:22 PM Reporting Lab: [facility] [address] Performing Lab: [facility] [phone] PHOSPHORUS 3.6 mg/dL 2.3-4.3 Jul 06, 2024 07:21 AM [facility] BASIC METABOLIC PANEL+MG Specimen Type: PLASMA No comment entered. Ordering Provider: JEVON ZAZUETA Report Released Date/Time: Jul 05, 2024 01:22 PM Reporting Lab: [facility] [address] Performing Lab: [facility] [address] CREATININE 0.7 mg/dL 0.7-1.2 UREA NITROGEN 12 mg/dL 8-26 GLUCOSE 108 mg/dL H 70-100 SODIUM 138 mmol/L 136-145 POTASSIUM 3.4 mmol/L L 3.5-5.1 CHLORIDE 104 mmol/L 98-107 CO2 20 mmol/L L 22-29 CALCIUM 9.3 mg/dL 8.4-10.2 MAGNESIUM 1.9 mg/dL 1.6-2.6 ANION GAP 14 mmol/L 5-15 .CREAT EGFR(CKD-EPI) >90 >60 Jul 05, 2024 07:17 AM [facility] MAGNESIUM Specimen Type: PLASMA No comment entered. Ordering Provider: JUANCARLOS ECHOLS S Report Released Date/Time: Jul 04, 2024 09:39 AM Reporting Lab: [facility] [address] Performing Lab: [facility] [address] MAGNESIUM 2.0 mg/dL 1.6-2.6 Jul 05, 2024 07:17 AM [facility] PHOSPHORUS Specimen Type: PLASMA No comment entered. Ordering Provider: JUANCARLOS ECHOLS S Report Released Date/Time: Jul 04, 2024 09:39 AM Reporting Lab: [facility] [address] Performing Lab: [facility] [address] PHOSPHORUS 2.0 mg/dL L 2.3-4.3 Jul 05, 2024 07:17 AM [facility] BASIC METABOLIC PANEL+MG Specimen Type: PLASMA No comment entered. Ordering Provider: JUANCARLOS ECHOLS S Report Released Date/Time: Jul 04, 2024 09:39 AM Reporting Lab: [facility] [address] Performing Lab: [facility] [address] CREATININE 0.7 mg/dL 0.7-1.2 UREA NITROGEN 12 mg/dL 8-26 GLUCOSE 84 mg/dL 70-100 SODIUM 135 mmol/L L 136-145 POTASSIUM 3.8 mmol/L 3.5-5.1 CHLORIDE 104 mmol/L 98-107 CO2 24 mmol/L 22-29 CALCIUM 9.3 mg/dL 8.4-10.2 MAGNESIUM 2.0 mg/dL 1.6-2.6 ANION GAP 7 mmol/L 5-15 .CREAT EGFR(CKD-EPI) >90 >60 Jul 05, 2024 07:16 AM [facility] CBC Specimen Type: BLOOD No comment entered. Ordering Provider: JUANCARLOS ECHOLS S Report Released Date/Time: Jul 04, 2024 09:39 AM Reporting Lab: [facility] [address] Performing Lab: [facility] [address] WBC 18.3 H 4.0-11.0 RBC 4.49 L 4.60-6.20 HGB 14.1 g/dL 13.5-17.9 HCT 43.4 41.0-54.0 MCV 96.7 fL 80.0-100.0 MCH 31.4 pg 27.0-33.0 MCHC 32.5 g/dL 32.0-37.5 PLT 317 150-400 MPV 10.0 fL 9.1-13.0 RDW 13.9 11.5-14.5 Jul 04, 2024 07:17 AM [facility] BASIC METABOLIC PANEL+MG Specimen Type: PLASMA No comment entered. Ordering Provider: GABINO CAMERON Report Released Date/Time: Jul 03, 2024 06:31 PM Reporting Lab: [facility] [address] Performing Lab: [facility] [address] CREATININE 0.7 mg/dL 0.7-1.2 UREA NITROGEN 16 mg/dL 8-26 GLUCOSE 129 mg/dL H 70-100 SODIUM 137 mmol/L 136-145 POTASSIUM 3.7 mmol/L 3.5-5.1 CHLORIDE 107 mmol/L 98-107 CO2 22 mmol/L 22-29 CALCIUM 9.0 mg/dL 8.4-10.2 MAGNESIUM 1.9 mg/dL 1.6-2.6 ANION GAP 8 mmol/L 5-15 .CREAT EGFR(CKD-EPI) >90 >60 Jul 04, 2024 07:17 AM [facility] PHOSPHORUS Specimen Type: PLASMA No comment entered. Ordering Provider: GABINO CAMERON Report Released Date/Time: Jul 03, 2024 06:31 PM Reporting Lab: [facility] [address] Performing Lab: [facility] [address] PHOSPHORUS 2.8 mg/dL 2.3-4.3 Jul 04, 2024 07:16 AM [facility] CBC Specimen Type: BLOOD No comment entered. Ordering Provider: GABINO CAMERON Report Released Date/Time: Jul 03, 2024 06:31 PM Reporting Lab: [facility] [address] Performing Lab: [facility] [address] WBC 20.6 H 4.0-11.0 RBC 4.63 4.60-6.20 HGB 14.2 g/dL 13.5-17.9 HCT 43.4 41.0-54.0 MCV 93.7 fL 80.0-100.0 MCH 30.7 pg 27.0-33.0 MCHC 32.7 g/dL 32.0-37.5 PLT 329 150-400 MPV 10.4 fL 9.1-13.0 RDW 13.8 11.5-14.5 Jul 04, 2024 07:16 AM [facility] CBC & DIFF Specimen Type: BLOOD Comment: Manual Differential Performed Ordering Provider: GABINO CAMERON Report Released Date/Time: Jul 03, 2024 06:31 PM Reporting Lab: [facility] [address] Performing Lab: [facility] [address] WBC 20.6 H 4.0-11.0 RBC 4.63 4.60-6.20 [...] MORPHOLOGY PRESENT Jul 04, 2024 07:15 AM [facility] BNP Specimen Type: PLASMA No comment entered. Ordering Provider: GABINO CAMERON Report Released Date/Time: Jul 03, 2024 06:31 PM Reporting Lab: [facility] [address] Performing Lab: [facility] [address] BNP 292 pg/mL H <99 Jul 03, 2024 10:32 PM [facility] FINGERSTICK GLUCOSE Specimen Type: BLOOD Comment: Save Result Nurse Notified Ordering Provider: KATELYNN PERSON Report Released Date/Time: Jul 03, 2024 10:50 PM Reporting Lab: [facility] [address] Performing Lab: [facility] [address] FINGERSTICK GLUCOSE 126 mg/dL H 70-100 Jul 03, 2024 05:33 PM [facility] FINGERSTICK GLUCOSE Specimen Type: BLOOD Comment: Save Result Nurse Notified Ordering Provider: KATELYNN PERSON Report Released Date/Time: Jul 03, 2024 05:46 PM Reporting Lab: [facility] [address] Performing Lab: [facility] [address] FINGERSTICK GLUCOSE 141 mg/dL H 70-100 Jul 03, 2024 02:31 PM [facility] POC ABG/ELECTROLYTES Specimen Type: ARTERIAL BLOOD Comment: FIO2 = 97% Patient Temp: 36.0 C Sample Type = ARTERIAL Ordering Provider: MAZIN ARREDONDO Report Released Date/Time: Jul 03, 2024 01:48 PM Reporting Lab: [facility] [address] Performing Lab: [facility] [address] POC PH 7.387 7.35-7.45 POC PCO2 34.4 [...] H 80.0-105.0 Jul 03, 2024 01:05 PM [facility] POC ABG/ELECTROLYTES Specimen Type: ARTERIAL BLOOD Comment: FIO2 = 53% Patient Temp: 36.2 C Sample Type = ARTERIAL Ordering Provider: MAZIN ARREDONDO Report Released Date/Time: Jul 03, 2024 01:48 PM Reporting Lab: [facility] [address] Performing Lab: [facility] [address] POC PH 7.280 L 7.35-7.45 POC PCO2 [...] mm[Hg] 80.0-105.0 Jul 03, 2024 06:15 AM [facility] URINALYSIS Specimen Type: URINE No comment entered. Ordering Provider: MARYBETH POWELL Report Released Date/Time: Jun 12, 2024 04:01 PM Reporting Lab: [facility] [address] Performing Lab: [facility] [address] URINE COLOR YELLOW SPECIFIC GRAVITY 1.031 1.003-1.03 [...] 250 NEGATIVE Jul 03, 2024 06:13 AM [facility] CBC Specimen Type: BLOOD No comment entered. Ordering Provider: MARYBETH POWELL Report Released Date/Time: Jun 12, 2024 03:59 PM Reporting Lab: [facility] [address] Performing Lab: [facility] [address] WBC 15.8 H 4.0-11.0 RBC 5.11 4.60-6.20 HGB 16.1 g/dL 13.5-17.9 HCT 49.1 41.0-54.0 MCV 96.1 fL 80.0-100.0 MCH 31.5 pg 27.0-33.0 MCHC 32.8 g/dL 32.0-37.5 PLT 357 150-400 MPV 9.8 fL 9.1-13.0 RDW 13.7 11.5-14.5 Jun 24, 2024 09:50 AM [facility] BASIC METABOLIC PANEL+MG Specimen Type: PLASMA Comment: Specimen received in Lab at: 0948 Ordering Provider: JEVON ZAZUETA Report Released Date/Time: Jun 23, 2024 06:07 PM Reporting Lab: [facility] [address] Performing Lab: [facility] [address] CREATININE 0.8 mg/dL 0.7-1.2 UREA NITROGEN 13 mg/dL 8-26 GLUCOSE 135 mg/dL H 70-100 SODIUM 135 mmol/L L 136-145 POTASSIUM 3.6 mmol/L 3.5-5.1 CHLORIDE 103 mmol/L 98-107 CO2 24 mmol/L 22-29 CALCIUM 9.2 mg/dL 8.4-10.2 MAGNESIUM 1.9 mg/dL 1.6-2.6 ANION GAP 8 mmol/L 5-15 .CREAT EGFR(CKD-EPI) >90 >60 Jun 24, 2024 09:50 AM [facility] CBC Specimen Type: BLOOD Comment: Specimen received in Lab at: 0948 Ordering Provider: JEVON ZAZUETA Report Released Date/Time: Jun 23, 2024 06:07 PM Reporting Lab: [facility] [address] Performing Lab: [facility] [address] WBC 15.5 H 4.0-11.0 RBC 4.93 4.60-6.20 HGB 15.2 g/dL 13.5-17.9 HCT 46.5 41.0-54.0 MCV 94.3 fL 80.0-100.0 MCH 30.8 pg 27.0-33.0 MCHC 32.7 g/dL 32.0-37.5 PLT 223 150-400 MPV 11.4 fL 9.1-13.0 RDW 13.9 11.5-14.5 Jun 23, 2024 07:52 AM [facility] COMPREHENSIVE METABOLIC PANEL+MG Specimen Type: PLASMA No comment entered. Ordering Provider: JEVON ZAZUETA Report Released Date/Time: Jun 22, 2024 05:51 PM Reporting Lab: [facility] [address] Performing Lab: [facility] [address] CREATININE 0.7 mg/dL 0.7-1.2 UREA NITROGEN 16 [...] >90 >60 Jun 23, 2024 07:52 AM [facility] CBC & DIFF Specimen Type: BLOOD Comment: Automated Differential Performed Ordering Provider: JEVON ZAZUETA Report Released Date/Time: Jun 22, 2024 05:51 PM Reporting Lab: [facility] [address] Performing Lab: [facility] [address] WBC 14.9 H 4.0-11.0 RBC 5.09 4.60-6.20 [...] 0.1 0.0-0.1 Jun 22, 2024 06:10 PM [facility] CBC Specimen Type: BLOOD No comment entered. Ordering Provider: JEVON ZAZUETA Report Released Date/Time: Jun 22, 2024 05:51 PM Reporting Lab: [facility] [address] Performing Lab: [facility] [address] WBC 16.9 H 4.0-11.0 RBC 5.28 4.60-6.20 HGB 16.9 g/dL 13.5-17.9 HCT 50.4 41.0-54.0 MCV 95.5 fL 80.0-100.0 MCH 32.0 pg 27.0-33.0 MCHC 33.5 g/dL 32.0-37.5 PLT 223 150-400 MPV 10.9 fL 9.1-13.0 RDW 14.0 11.5-14.5 Jun 22, 2024 06:10 PM [facility] COMPREHENSIVE METABOLIC PANEL+MG Specimen Type: PLASMA No comment entered. Ordering Provider: JEVON ZAZUETA Report Released Date/Time: Jun 22, 2024 05:51 PM Reporting Lab: [facility] [address] Performing Lab: [facility] [address] CREATININE 0.7 mg/dL 0.7-1.2 UREA NITROGEN 17 [...] >90 >60 Jun 21, 2024 06:48 PM [facility] URINALYSIS Specimen Type: URINE No comment entered. Ordering Provider: DELIA MARTINEZ Report Released Date/Time: Jun 21, 2024 05:45 PM Reporting Lab: [facility] [address] Performing Lab: [facility] [address] URINE COLOR YELLOW SPECIFIC GRAVITY 1.041 H [...] 500 NEGATIVE Jun 21, 2024 05:34 PM [facility] POC CREATININE Specimen Type: BLOOD No comment entered. Ordering Provider: DELIA MARTINEZ Report Released Date/Time: Jun 21, 2024 06:07 PM Reporting Lab: [facility] [address] Performing Lab: [facility] [address] POC CREATININE 1.1 mg/dL 0.6-1.3 Jun 21, 2024 05:30 PM [facility] POC ABG/LACTATE Specimen Type: VENOUS BLOOD No comment entered. Ordering Provider: DELIA MARTINEZ Report Released Date/Time: Jun 21, 2024 06:07 PM Reporting Lab: [facility] [address] Performing Lab: [facility] [address] POC PH 7.470 H 7.31-7.41 POC PCO2 31.2 mm[Hg] L 41.00-51 .0 0 POC PO2 46 mm[Hg] H 35.0-40.0 POC TCO2 24 mmol/L 24.0-29.0 POC HCO3 22.7 mmol/L L 23.0-28.0 POC BE ECT -1 mmol/L POC SO2 85 H 70-75 POC LACTATE 1.85 mmol/L 0.90-1.70 Jun 21, 2024 05:24 PM [facility] PROTHROMBIN TIME/INR Specimen Type: PLASMA No comment entered. Ordering Provider: DELIA MARTINEZ Report Released Date/Time: Jun 21, 2024 05:30 PM Reporting Lab: [facility] [address] Performing Lab: [facility] [address] .INR 1.2 H 0.8-1.1 .PT 13.9 s H 9.4-12.5 Jun 21, 2024 05:24 PM [facility] LIPASE Specimen Type: PLASMA No comment entered. Ordering Provider: DELIA MARTINEZ Report Released Date/Time: Jun 21, 2024 05:30 PM Reporting Lab: [facility] [address] Performing Lab: [facility] [address] LIPASE 32 U/L <60 Jun 21, 2024 05:24 PM [facility] EXTRA GOLD GEL TUBE Specimen Type: SERUM No comment entered. Ordering Provider: DELIA MARTINEZ Report Released Date/Time: Jun 21, 2024 05:41 PM Reporting Lab: [facility] [address] Performing Lab: [facility] [address] EXTRA GOLD GEL TUBE RECEIVED Jun 21, 2024 05:24 PM [facility] CBC & DIFF Specimen Type: BLOOD Comment: Manual Differential Performed Ordering Provider: DELIA MARTINEZ Report Released Date/Time: Jun 21, 2024 05:30 PM Reporting Lab: [facility] [id number] Performing Lab: [facility] [id number] WBC 21.3 H 4.0-11.0 RBC 5.48 4.60-6.20 [...] BASO 0.0 0.0-0.2 .RBC MORPHOLOGY PRESENT Jun 21, 2024 05:24 PM [facility] COMPREHENSIVE METABOLIC PANEL+MG Specimen Type: PLASMA No comment entered. Ordering Provider: DELIA MARTINEZ Report Released Date/Time: Jun 21, 2024 05:30 PM Reporting Lab: [facility] [id number] Performing Lab: [facility] [id number] CREATININE 0.9 mg/dL 0.7-1.2 UREA NITROGEN 29 [...] >90 >60 DIR. BILIRUBIN 0.5 mg/dL <0.5 Social History: Smoking Status (Most current) and [...] 15, 2024 08:30 AM VA-TOBACCO FORMER USER [facility] Tobacco Use History This section includes a history of the smoking, or tobacco-related health factors, that were collected on or before the date of the Encounter. The data comes from the [place] facility where the Encounter took place. Date/Time Smoking Status/Tobacco Use Comment F acility May 15, 2024 08:30 AM VA-TOBACCO QUIT 15 YRS OR MORE [facility] May 06, 2023 11:30 AM VA-TOBACCO FORMER USER [facility] May 06, 2023 11:30 AM VA-TOBACCO QUIT 15 YRS OR MORE [facility] Jun 04, 2022 09:00 AM VA-TOBACCO FORMER USER [facility] Jun 04, 2022 09:00 AM VA-TOBACCO QUIT 15 YRS OR MORE [facility] Jul 10, 2021 08:00 AM VA-TOBACCO FORMER USER [facility] Jul 10, 2021 08:00 AM VA-TOBACCO QUIT 5 TO < 15 YRS [facility] May 23, 2020 08:30 AM VA-TOBACCO FORMER USER [facility] May 23, 2020 08:30 AM VA-TOBACCO QUIT 5 TO < 15 YRS [facility] Mar 20, 2019 04:03 PM VA-TOBACCO FORMER USER [facility] Mar 20, 2019 04:03 PM VA-TOBACCO QUIT 5 TO < 15 YRS [facility] Mar 21, 2018 08:13 AM FORMER TOBACCO USER 7Y OR GREATE R [facility] Feb 24, 2017 09:24 AM FORMER TOBACCO USER 7Y OR GREATE R [facility] January 07, 2016 08:01 AM FORMER TOBACCO USE >1Y <7Y [facility] Feb 03, 2015 07:58 AM FORMER TOBACCO USE <1Y [facility] Feb 26, 2014 08:41 AM CURRENT TOBACCO USER [facility] May 13, 2011 01:45 PM CURRENT TOBACCO USER [facility] Advance Directives: All historical and current Section [...] CHEST 2 VIEWS PA A ND LAT: FLYNN WEAVER [id number] -[phone] M Exm Date: JUL 08, 2024@10:09 Req Phys: KATELYNN PERSON Pat Loc: 2KG/07-08-2024@11:49 Img Loc: MAIN X-RAY Service: [place] [address] (Case 24 COMPLETE) CHEST 2 VIEWS PA AND LAT (RAD Detailed) CPT:94615 Reason for Study: Uptrending WBC, POD 5 [...] 08, 2024 Date Verified: JUL 08, 2024 Reporter E-Sig: Report: CHEST 2 VIEWS PA AND LAT HISTORY: Uptrending WBC, POD 5 COMPARISON: CT chest 11/12/2022 TECHNIQUE: Frontal and lateral views of the chest, submitted to the [place] National Teleradiology Program (NTP) for interpretation. FINDINGS: Lungs: Clear. No focal consolidation. No pulmonary edema. Pleura: No pleural effusion or pneumothorax. Mediastinum: Normal size and contour. Bones: Unremarkable. Impression: No acute cardiopulmonary disease. READING PHYSICIAN: Sarbjit Vaughn M.D. -[phone] 07/08/2024 12:46 EST [facility] National Teleradiology Program [phone] (For Medical Practitioner Use Only) Attention Patients / Veterans: If you have questions or concerns about these test results, please contact your ordering provider or primary care team. Primary Interpreting Staff: RADIOLOGY,OUTSIDE SERVICE, Staff Physician / RADIOLOGY,OUTSIDE SERVICE [facility] Jul 08, 2024 10:[address] (AP) ABDOMEN/PE LVIS W CONTRAST: FLYNN WEAVER [id number] -1950 M Exm Date: JUL 08, 2024@10:00 Req Phys: KATELYNN PERSON Pat Loc: [facility]/07-08-2024@12:07 Img Loc: CT IMAGING Service: [place] [address] (Case 22 COMPLETE) CT (AP) ABDOMEN/PELVIS W CONTRAST(CT Detailed) CPT:91362 Contrast Media : Non-ionic Iodinated Reason for [...] PLASMA .CREAT EGFR(CKD-E >90 Ref: >=60 Allergies: ([place] only) TERAZOSIN (Mar 13, 2015) Report Status: Verified Date Reported: JUL 08, 2024 Date Verified: JUL 08, 2024 Reporter E-Sig: Report: CT (AP) ABDOMEN/PELVIS W CONTRAST HISTORY: POD 5, Uptrending WBC - Concern for Abscess/other infection COMPARISON: June 21, 2024 TECHNIQUE: CT abdomen and pelvis was performed after intravenous contrast. Axial, sagittal and coronal reformatted images. The study was performed at the local [place] facility and images were sent to the [place] National Teleradiology Program (NTP) for interpretation. Number [...] as noted above READING PHYSICIAN: Celestino Blanc -[phone] 07/08/2024 13:04 EST [facility] National VisitorsCaferadiology Program [phone] (For Medical Practitioner Use Only) Attention Patients / Veterans: If you have questions or concerns about these test results, please contact your ordering provider or primary care team. Primary Interpreting Staff: RADIOLOGY,OUTSIDE SERVICE, Staff Physician / RADIOLOGY,OUTSIDE SERVICE [facility] Jun 22, 2024 11:49 AM ABSCESS DRAIN PLAC EMENT PERITONEAL (P): FLYNN WEAVER [id number] -1950 M Exm Date: JUN 22, 2024@11:49 Req Phys: ANGELA HOLDEN Pat Loc: [facility]/06-22-2024@17:14 Img Loc: INTERVENTIONAL RADIOLOGY Service: [place] [address] (Case [id number] COMPLETE) IR PERITONEAL/RETROPERITONEAL PER(ANI Detailed) CPT:74456 Reason for Study: diverticulitis with abscess (Case 3570 COMPLETE) IR MOD SEDATION 10-22 MIN (ANI Detailed) CPT:41247 Clinical History: IS NOT under investigation for COVID-19 or is COVID-19 negative 73 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 please place abscess drain. Contact number for responsible provider who can be reached for any questions or notifications of critical findings: [phone] n/a LAST CREATININE 0.9 (06/21/24) Report Status: Verified Date Reported: JUN 22, 2024 Date Verified: JUN 22, 2024 Reporter E-Sig:/ES/LISA PENDLETON MD Report: PROCEDURES: Placement of [...] anesthesia. Using real-time CT fluoroscopy, a 5 Israeli Remoov centesis catheter was advanced into the collection in the left pelvis. A wire was coiled in the collection. The tract into the collection was dilated to accommodate the 12 Israeli locking pigtail drainage catheter. There was return [...] Primary Interpreting Staff: LISA PENDLETON MD, RADIOLOGIST (Reporter) /JRT LISA PENDLETON [facility] Jun 22, 2024 11:[address] NEEDLE PLACEMEN T (P): FLYNN WEAVER [id number] -1950 M Exm Date: JUN 22, 2024@11:48 Req Phys: ANGELA HOLDEN [facility] Loc: [facility]/06-22-2024@17:14 Img Loc: CT IMAGING Service: [place] [address] (Case [id number] COMPLETE) CT SCAN FOR NEEDLE PLACEMENT (CT Detailed) CPT:52352 Reason for Study: l pelvic abscess drain Clinical History: Report Status: Verified Date Reported: JUN 22, 2024 Date Verified: JUN 22, 2024 Reporter E-Sig:/ES/LISA PENDLETON MD Report: PROCEDURES: Placement of [...] anesthesia. Using real-time CT fluoroscopy, a 5 Israeli [employer]esis catheter was advanced into the collection in the left pelvis. A wire was coiled in the collection. The tract into the collection was dilated to accommodate the 12 Israeli locking pigtail drainage catheter. There was return [...] Primary Interpreting Staff: LISA PENDLETON MD, RADIOLOGIST (Reporter) /JRT LISA PENDLETON [facility] Jun 21, 2024 06:[address] (AP) ABDOMEN/PE LVIS (P): MEGFLYNN YAMIL [id number] -1950 M Exm Date: JUN 21, 2024@18:09 Req Phys: DELIA MARTINEZ Loc: [facility] (Re Img Loc: CT IMAGING Service: [place] [address] (Case [id number] COMPLETE) CT (AP) ABDOMEN/PELVIS W CONTRAST(CT Detailed) CPT:64409 Contrast Media : Non-ionic Iodinated Reason for [...] PLASMA .CREAT EGFR(CKD-E >90 Ref: >=60 Allergies: ([place] only) TERAZOSIN (Mar 13, 2015) Defer to [...] 21, 2024 Date Verified: JUN 21, 2024 Reporter E-Sig:/ES/CARLOS A CUNNINGHAM DO Report: EXAMINATION: CT [...] Interpreting Staff: CARLOS A CUNNINGHAM DO, RADIOLOGIST (Reporter) /CARLOS A ROWELL [facility] Pathology Reports: +/- 30 days of the [...] comes from all [place] treatment facilities. Date/Time Pathology Report Provider Source Jul 03, 2024 05:59 AM LR SURGICAL PATHOL OGY REPORT: LOCAL TITLE: LR SURGICAL PATHOLOGY REPORT STANDARD TITLE: PATHOLOGY REPORT DATE OF NOTE: JUL 06, 2024@10:40:48 ENTRY DATE: JUL 06, 2024@10:40:48 AUTHOR: EDUARDO PALOMARES EXP COSIGNER: URGENCY: STATUS: COMPLETED $APHDR Reporting Lab: [facility] [CLIA# [id number]] [place] [address] - - - - - - - [...] - PATHOLOGY REPORT Accession No. [id number] - - - - - - - [...] - PATHOLOGY REPORT Accession No. [id number] - - - - - - - [...] Second circumferential surgical margin, en face; E-F: Manager Mechanical diverticula; G: Manager Mechanical section of mesentery; H: Random software sales representative section of additional adipose tissue [...] One colonic tissue ring, bisected transversely. [facility]. [facility]: Microscopic examination performed. DIAGNOSIS: 1. Colon, sigmoid, sigmoidectomy-- - Diverticulosis with perforation and focal abscess formation 2. Colon, anastomotic rings, excision-- - Viable colonic mucosa without diagnostic abnormality /es/ EDUARDO PALOMARES MD STAFF PATHOLOGIST Signed Jul 06, 2024@10:40 Performing Laboratory: Surgical Pathology Report Performed By: [facility] [CLIA# [id number]] [place] [address] $FTR - - - - - - [...] - - - - - - - FLYNN WEAVER STANDARD FORM 515 ID:[id number] SEX:M :1950 AGE: 73 LOC:03956 ADM:Jun DX:DIVERTICULITIS PCP: Jatinder Cabrera /alexi/ EDUARDO PALOMARES MD STAFF PATHOLOGIST Signed: 07/06/2024 10:40 EDUARDO PALOMARES [facility] Jun 22, 2024 01:15 PM LR MICROBIOLOGY RE PORT: Reporting Lab: [facility] [CLIA# [id number]] [place] [address] Accession [UID]: [id number]] Received: Jun 22, 2024@13:38 Collection sample: FLUID Collection date: Jun 22, 2024 13:15 Provider: ANGELA HOLDEN Comment on specimen: LLQ ABSCESS, RECEIVED IN ANAEROBIC TRANSPORT VIAL Test(s) ordered: GRAM STAIN.................... completed: Jun 22, 2024 15:03 CULTURE & SUSCEPTIBILITY...... completed: Jun 25, 2024 * BACTERIOLOGY FINAL REPORT => Jun 25, 2024 10:56 TECH CODE: [id number] GRAM STAIN: DIRECT SMEAR of specimen before [...] -=--=--=--=--=--=--=-- Performing Laboratory: Bacteriology Report Performed By: [facility] [CLIA# [id number]] [place] [address] [facility] Jun 22, 2024 01:15 PM LR MICROBIOLOGY RE PORT: Reporting Lab: [facility] [CLIA# [id number]] [place] [address] Accession [UID]: [id number] [[id number]] Received: Jun 22, 2024@13:38 Collection sample: FLUID Collection date: Jun 22, 2024 13:15 Provider: ANGELA HOLDEN Comment on specimen: LLQ ABSCESS, RECEIVED IN ANAEROBIC TRANSPORT VIAL Test(s) ordered: ANAEROBIC CULTURE............. completed: Jun 28, 2024 * BACTERIOLOGY FINAL REPORT => Jun 28, 2024 10:08 TECH CODE: [id number] CULTURE RESULTS: HEAVY GROWTH MIXED ANAEROBES Comment: including the followin+ Bacteroides fragilis 4+ Bacteroides vulgatus 4+ Clostridium innocuum Beta-lactamase negative 4+ Bacteroides caccae 4+ Parvimonas micra 4+ Bacteroides uniformis 4+ Gemella morbillorum 4+ anaerobic small, Gram Positive Rods 4+ Bacteroides thetaiotaomicron Standard workup is now complete. Bacteriology Remark(s): THIS REPORT IS FINAL =--=--=--=--=--=--=--=--=--= --=--=--=--=--=--=--=--=--=- -=--=--=--=--=--=--=-- Performing Laboratory: Bacteriology Report Performed By: [facility] [CLIA# [id number]] [place] [address] [facility] Jun 21, 2024 06:12 PM LR MICROBIOLOGY RE PORT: Reporting Lab: [facility] [IA# [id number]] [place] [address] Accession [UID]: [id number] [[id number]] Received: Jun 21, 2024@18:12 Collection sample: BLOOD [...] -=--=--=--=--=--=--=-- Performing Laboratory: Bacteriology Report Performed By: [facility] [IA# [id number]] [place] [address] [facility] Jun 21, 2024 06:11 PM LR MICROBIOLOGY RE PORT: Reporting Lab: [facility] [IA# [id number]] [place] [address] Accession [UID]: [id number] [[id number]] Received: Jun 21, 2024@18:11 Collection sample: BLOOD [...] -=--=--=--=--=--=--=-- Performing Laboratory: Bacteriology Report Performed By: [facility] [CLIA# [id number]] [place] [address] [facility] Encounter Notes: All associated encounter notes This section contains the clinical notes associated to the Encounter. Date/Time Encounter Note(s) Provider Source Jul 11, 2024 03:48 PM PATIENT RECORD FLA G: LOCAL TITLE: PATIENT RECORD FLAG CATEGORY I STANDARD TITLE: PATIENT RECORD FLAG DATE OF NOTE: JUL 11, 2024@15:48 ENTRY DATE: JUL 12, 2024@10:48:59 AUTHOR: MCKAY TOBIN COSIGNER: URGENCY: STATUS: COMPLETED THIS PROGRESS NOTE MAY ONLY BE ENTERED BY APPROVED MEMBERS OF THE DISRUPTIVE BEHAVIOR COMMITTEE. GENERAL USE IS PROHIBITED. CONTACT DISRUPTIVE BEHAVIOR COMMITTEE CO-CHAIRPERSONS FOR FURTHER INFORMATION/CLARIFICATION. An event on 06/25/2024 was reported to the Disruptive Behavior Reporting System (DBRS). For information contact your Disruptive Behavior Committee and provide DBRS reference number [id number] ([phone] (04/25/24), [phone] (09/08/22), [phone] (08/02/17), [phone] (04/22/17), [phone] (03/23/16), [phone] (01/13/16)). The DBRS electronic report was reviewed by the Disruptive Behavior Committee on Jun. The committee decided that the behavior reported warrants both a Behavior Flag and a letter that will be sent to the expressing our concern and reinforcing [facility] expectations of appropriate behavior. [facility] Tracking Number: [id number] The flag reads as follows: Behavior: History of verbally abusive behavior toward staff both in person and on phone calls. Response: Set firm, clear limits on any hostile or abusive comments or behaviors. Have a low threshold for ending calls or appointments if behaviors continue. REPORT ANY ADDITIONAL DISRUPTIVE BEHAVIOR EVENTS IN DBRS The letter reads as follows: July 12, 2024 [facility] Flynn Weaver [address] [place] [address] Dear Mr. Weaver, It has been reported to the Disruptive Behavior Committee (DBC) of the [facility] ([facility]) that on June 25, 2024 you were belligerent and verbally abusive towards staff during your recent hospitalization. Specifically, it was reported that you were yelling, swearing, and making homophobic slurs. We have received multiple previous reports of similar behavior by you in the past. The DBC, after reviewing the incident mentioned above, has decided to send you this letter to reinforce our policies that prohibit violent, threatening or aggressive behavior toward staff or fellow veterans. The DBC has also decided to place a national Behavior Flag in your record to warn staff of your past behavior. Your flag reads as follows: Behavior: History of verbally abusive behavior toward staff both in person and on phone calls. Response: Set firm, clear limits on any hostile or abusive comments or behaviors. Have a low threshold for ending calls or appointments if behaviors continue. The DBC was established with the approval of the [facility] dyed yarn operator to address issues regarding the safety of veterans receiving care here and the staff who provide that care. The DBC reviews reports from staff and patients and recommends corrective action to prevent reoccurrences of inappropriate behavior. The DBC is comprised of [facility] staff from a variety of health care disciplines as well as the [place] Police and a Patient Manager Mechanical. This letter serves as a reminder that you may not continue with these behaviors. Future behavior such as that mentioned above will result in additional actions by the DBC. Additional DBC actions can include one or more of the following: restricting your care to the main [facility] campus; requiring you to register with the [place] [facility] upon entering the medical center to obtain a Zero Tolerance card; requiring a [place] Police escort during your visits to this facility; or making recommendations to Medical Center leadership for other restrictions to your care. We hope your future visits to this medical center are pleasant and your medical needs are met with courtesy and professionalism. If you become frustrated with the care you receive or have any questions or need more information regarding this letter, please address your concerns in a more constructive way by contacting a Patient Manager Mechanical at [phone]. Respectfully, The Disruptive Behavior Committee Thank you for taking the time to complete the report and for supporting our efforts to improve safety of the [facility]. /alexi/ MCKAY TOBIN, Ph.D., L.P. [facility] Assistant Plant Control Operator Signed: 07/12/2024 10:50 Receipt Acknowledged By: * AWAITING SIGNATURE * JATINDER CABRERA 07/12/2024 10:58 /alexi/ MARYBETH POWELL MD STAFF SURGEON, COLON/RECTAL MCKAY TOBIN [facility]
--- OUTSIDE RECORDS SUMMARY | 2024-07-16 07:25 | XMS_ITS | Encounter Summary ---
Author Name [facility] [place] [facility] [facility] [place] Address [address] [place] [address] Care Team Providers Care Supervisor Pairing And Inspecting Name Role Phone JATINDER CABRERA Primary Care [...] PART A Sep 29, 2016 PART A [id number] [phone] JUDY WEAVER PATIENT Selected Encounter This section includes the information on record at [place] for the Encounter. Date/Time Encounter Type Encounter Description Reason Provider Source May 07, 2024 08:45 AM OFF/OP EST DECEMBER X REQ PHY/QHP PRIMARY CARE/MEDICINE ICD-10-CM R03.0 Elevated blood-pressure reading, w/o diagnosis of htn GUERITA AGUILA Alex Encounter Template Text not used by [place] Assessments - Encounter Diagnoses This section includes the primary and secondary diagnoses documented for the Encounter. Date/Time Primary/Secondary Diagnosis Diagnosis Name Provider Source May 07, 2024 09:11 AM PRIMARY Elevated blood-pressure reading, w/o diagnosis of htn GUERITA AGUILA [facility] Plan of Treatment: Future Appointments (+ 6 months) and Future Tests (+/- 45 days) The Plan of Treatment section includes future care activities for the patient from all [place] [facility]. This section includes future appointments and future orders which are active, pending or scheduled. Future Appointments This section includes appointments that were scheduled to occur 6 months from the date of the Encounter, up to a maximum of 20 appointments. The data comes from all [facility]. Appointment Date/Time Appointment Type Appointme nt Facility Name May 08, 2024 02:00 PM [place] [place] [facility] May 09, 2024 07:30 AM [facility] [place] [facility] May 11, 2024 01:00 PM [facility]ORY [place] [facility] May 11, 2024 03:30 PM [facility]ORY [place] [facility] May 15, 2024 08:30 AM [place] [facility] May 16, 2024 07:45 AM [place] [place] [facility] May 22, 2024 07:30 AM [facility]ORY [facility] [place] [facility] May 22, 2024 05:30 PM [facility]ORY [facility] [place] [facility] May 25, 2024 08:22 AM [facility]ORY [facility] [place] [facility] May 25, 2024 09:00 AM [facility]ORY [facility] [place] [facility] May 28, 2024 08:15 AM [place] [place] [facility] Jun 04, 2024 11:30 AM [facility]ORY [facility] [place] [facility] Jun 08, 2024 11:00 AM [place] [place] [facility] Jun 08, 2024 12:45 PM [facility]ATORY [facility] [place] [facility] Jun 08, 2024 01:15 PM [place] [facility] Jun 08, 2024 01:45 PM [place] [place] [facility] Jun 21, 2024 04:48 PM [place] [place] [facility] Jun 21, 2024 05:45 PM [facility]ORY [facility] [place] [facility] Jun 27, 2024 07:00 AM [facility]ORY [facility] [facility] Jun 27, 2024 07:30 AM [facility] Active, Pending, and Scheduled Orders This [...] JUAN drain output [facility] Apr 26, 2024 10:10 AM Laboratory - Microbiology Order GRAM STAIN WOUND OTHER WC ONCE ~For Test: GRAM STAIN ~JUAN drain culture/gram stain [facility] May 28, 2024 12:00 AM Laboratory - Blood Bank Order TYPE & SCREEN - LAB BLOOD SP [facility] Jun 08, 2024 09:57 AM Laboratory - Chemistry Order URINALYSIS URINE WC ONCE [facility] Jun 12, 2024 12:00 AM Laboratory - Chemistry Order BNP PLASMA SP ONCE [facility] Jun 21, 2024 05:45 PM Laboratory - Blood Bank Order TYPE & SCREEN - LAB BLOOD WC [facility] Lab Results: +/- 30 [...] Range Comment May 21, 2024 06:59 AM [facility] BASIC METABOLIC PANEL+MG Specimen Type: PLASMA No comment entered. Ordering Provider: GOLDIE CABRERA Report Released Date/Time: May 15, 2024 08:34 AM Reporting Lab: [facility] [phone] Performing Lab: [facility] [address] CREATININE 0.9 mg/dL 0.7-1.2 UREA NITROGEN 18 mg/dL 8-26 GLUCOSE 126 mg/dL H 70-100 SODIUM 138 mmol/L 136-145 POTASSIUM 4.0 mmol/L 3.5-5.1 CHLORIDE 105 mmol/L 98-107 CO2 24 mmol/L 22-29 CALCIUM 9.8 mg/dL 8.4-10.2 MAGNESIUM 2.0 mg/dL 1.6-2.6 ANION GAP 9 mmol/L 5-15 .CREAT EGFR(CKD-EPI) >90 >60 May 04, 2024 08:36 AM [facility] BASIC METABOLIC PANEL+MG Specimen Type: PLASMA No comment entered. Ordering Provider: GOLDIE CABRERA Report Released Date/Time: May 03, 2024 12:52 PM Reporting Lab: [facility] [address] Performing Lab: [facility] [address] CREATININE 0.7 mg/dL 0.7-1.2 UREA NITROGEN 13 mg/dL 8-26 GLUCOSE 91 mg/dL 70-100 SODIUM 141 mmol/L 136-145 POTASSIUM 3.6 mmol/L 3.5-5.1 CHLORIDE 109 mmol/L H 98-107 CO2 25 mmol/L 22-29 CALCIUM 8.9 mg/dL 8.4-10.2 MAGNESIUM 2.0 mg/dL 1.6-2.6 ANION GAP 7 mmol/L 5-15 .CREAT EGFR(CKD-EPI) >90 >60 Apr 26, 2024 07:16 AM [facility] BASIC METABOLIC PANEL+MG Specimen Type: PLASMA No comment entered. Ordering Provider: JONO RANDOLPH Report Released Date/Time: Apr 25, 2024 02:50 PM Reporting Lab: [facility] [address] Performing Lab: [facility] [address] CREATININE 0.7 mg/dL 0.7-1.2 UREA NITROGEN 15 [...] 05:04 PM Reporting Lab: [facility] [address] Performing Lab: [facility] [address] CREATININE 0.7 mg/dL 0.7-1.2 UREA NITROGEN 15 [...] 12:37 PM Reporting Lab: [facility] [address] Performing Lab: [facility] [address] CREATININE 0.7 mg/dL 0.7-1.2 UREA NITROGEN 14 [...] 12:37 PM Reporting Lab: [facility] [address] Performing Lab: [facility] [address] CREATININE 0.7 mg/dL 0.7-1.2 UREA NITROGEN 16 [...] Critical Value Reported To: Cait Zamorano RN 04-24-24@[address] [place] [address]. Critical value report confirmed. Ordering Provider: AARON VICTOR Report Released Date/Time: Apr 23, 2024 05:30 PM Reporting Lab: [facility] [address] Performing Lab: [facility] [address] CREATININE 0.7 mg/dL 0.7-1.2 UREA NITROGEN 16 [...] 05:30 PM Reporting Lab: [facility] [address] Performing Lab: [facility] [address] WBC 10.49 10*3/uL 4.0-11.0 RBC 3.83 10*6/uL [...] 12:05 PM Reporting Lab: [facility] [address] Performing Lab: [facility] [address] LACTIC ACID 1.5 mmol/L 0.5-2.2 Apr 23, 2024 01:20 PM [facility] PROTHROMBIN TIME/INR Specimen Type: PLASMA No comment entered. Ordering Provider: AARON VICTOR Report Released Date/Time: Apr 23, 2024 12:05 PM Reporting Lab: [facility] [address] Performing Lab: [facility] [address] .INR 1.2 H 0.8-1.1 .PT 14.5 s H 9.4-12.5 Apr 23, 2024 01:20 PM [facility] ACT PART THROMBO TIME Specimen Type: PLASMA No comment entered. Ordering Provider: AARON VICTOR Report Released Date/Time: Apr 23, 2024 12:05 PM Reporting Lab: [facility] [address] Performing Lab: [facility] [address] APTT 29.3 s 25.1-36.5 Apr 23, 2024 01:20 PM [facility] COMPREHENSIVE METABOLIC PANEL+MG Specimen Type: PLASMA No comment entered. Ordering Provider: AARON VICTOR Report Released Date/Time: Apr 23, 2024 12:05 PM Reporting Lab: [facility] [address] Performing Lab: [facility] [address] CREATININE 0.7 mg/dL 0.7-1.2 UREA NITROGEN 19 [...] 12:05 PM Reporting Lab: [facility] [address] Performing Lab: [facility] [address] WBC 12.50 10*3/uL H 4.0-11.0 RBC 4.07 [...] 07:37 AM Reporting Lab: [facility] [address] Performing Lab: [facility] [address] URINE COLOR COLORLESS SPECIFIC GRAVITY 1.009 1.003-1.03 [...] Height Weight Body Mass Index Source May 07, 2024 09:12 AM 142/77 [facility] May 07, 2024 09:12 AM 57 197/72 18 0 [facility] Social History: Smoking Status (Most [...] IR FISTULOGRAM OR SINOGRAM : FLACA WEAVER [id number] -1950 M Exm Date: MAY 25, 2024@09:00 Req Phys: AMINTA ESCALONA Loc: [facility] INTERVENTIONAL RADIO Img Loc: INTERVENTIONAL RADIOLOGY Service: [place] [address] (Case [id number] COMPLETE) IR FISTULOGRAM OR SINOGRAM (ANI Detailed) CPT:30166 Contrast Media : unspecified contrast media Reason [...] 25, 2024 Date Verified: MAY 25, 2024 Obgyn Hospitalist Physician E-Sig:/ES/DAVID BURNS MD Report: PROCEDURES 05/25/2024 9:48 [...] Primary Interpreting Staff: DAVID BURNS MD, RADIOLOGIST (Obgyn Hospitalist Physician) /CSS DAVID BURNS [facility] May 25, 2024 08:[address] (AP) ABDOMEN/PELVIS (P): FLACA WEAVER [id number] -1950 M Exm Date: MAY 25, 2024@08:23 Req Phys: DAVID BURNS Pat Loc: [facility] INTERVENTIONAL RADIO Img Loc: CT IMAGING Service: [place] [address] (Case [id number] COMPLETE) CT (AP) ABDOMEN/PELVIS W/O CONTRA(CT Detailed) CPT:30071 Reason for Study: assess abscess and possible [...] PLASMA .CREAT EGFR(CKD-E >90 Ref: >=60 Allergies: ([place] only) TERAZOSIN (Mar 13, 2015) Report Status: Verified Date Reported: MAY 25, 2024 Date Verified: MAY 25, 2024 Obgyn Hospitalist Physician E-Sig:/ES/JESSENIA GOODMAN MD Report: EXAM: CT abdomen and pelvis without intravenous contrast. 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 TECHNIQUE: Helical acquisition of image data was performed for the abdomen and pelvis without intravenous contrast. 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 Portions of the colon extend anterior to [...] Primary Interpreting Staff: JESSENIA GOODMAN MD, RADIOLOGIST (Obgyn Hospitalist Physician) Primary Interpreting Resident: YOHANNES MELO DO, FASHION MODEL /JESSENIA LOUIE [facility] May 11, 2024 12:39 PM IR FISTULOGRAM / SINOGRAM (P): FLACA WEAVER [id number] -1950 M Exm Date: MAY 11, 2024@12:39 Req Phys: PALMIRA POWELL Loc: [facility] C/R FOLLOW-UP CLINIC (Req' Img Loc: INTERVENTIONAL RADIOLOGY Service: [place] [address] (Case [id number] COMPLETE) IR INJECTION FOR SINOGRAM DIAGNOS(ANI Detailed) CPT:06407 Contrast Media : Non-ionic Iodinated Reason for Study: s/p drain placement for diverticular abscess- assess for drain (Case [id number] COMPLETE) IR FISTULOGRAM OR SINOGRAM (ANI Detailed) CPT:48729 Contrast Media : unspecified contrast media (Case [id number] COMPLETE) IR DRAINAGE CATHETER SUPPLY (ANI Detailed) CPT:C1729 Clinical History: IS NOT under investigation for COVID-19 or is COVID-19 negative s/p drain placement for diverticular abscess- assess for drain removal Contact number for responsible provider who can be reached for any questions or notifications of critical findings: [phone] Palmira Powell MD LAST CREATININE 0.7 (05/04/24) Report Status: Verified Date Reported: MAY 11, 2024 Date Verified: MAY 11, 2024 Obgyn Hospitalist Physician E-Sig:/ES/AMINTA ESCALONA MD Report: PROCEDURES Abdominal drain [...] Interpreting Staff: AMINTA ESCALONA MD, INTERVENTIONAL RADIOLOGIST (Obgyn Hospitalist Physician) /AMINTA VELAZCO [facility] May 11, 2024 11:[address] (AP) ABDOMEN/PELVIS (P): FLACA WEAVER [id number] -1950 M Exm Date: MAY 11, 2024@11:40 Req Phys: PALMIRA POWELL Loc: [facility] C/R FOLLOW-UP CLINIC (Req' Img Loc: CT IMAGING Service: [place] [address] (Case [id number] COMPLETE) CT (AP) ABDOMEN/PELVIS W CONTRAST(CT Detailed) CPT:99750 Contrast Media : Non-ionic Iodinated Reason for [...] any questions or notifications of critical findings: [phone] Palmira Powell MD LAST 3: Collection DT [...] PLASMA .CREAT EGFR(CKD-E >90 Ref: >=60 Allergies: ([place] only) TERAZOSIN (Mar 13, 2015) Report Status: Verified Date Reported: MAY 11, 2024 Date Verified: MAY 11, 2024 Obgyn Hospitalist Physician E-Sig:/ES/LISA PENDLETON MD Report: CT abdomen and [...] Primary Interpreting Staff: LISA PENDLETON MD, RADIOLOGIST (Obgyn Hospitalist Physician) /JRT LISA PENDLETON [facility] Apr 24, 2024 02:13 PM ABSCESS DRAIN PLACEMENT PERITONEAL (P): FLACA WEAVER [id number] -1950 M Exm Date: APR 24, 2024@14:13 Req Phys: TAURUS WOOD Loc: 3K04-24-2024@16:07 Img Loc: INTERVENTIONAL RADIOLOGY Service: PRIMARY [place] [address] (Case [id number] COMPLETE) IR PERITONEAL/RETROPERITONEAL PER(ANI Detailed) CPT:14629 Reason for Study: diverticular abscess Clinical History: [...] any questions or notifications of critical findings: [phone] If ordering provider is a trainee, enter the name and contact information of the responsible staff physician. Palmira Powell MD LAST CREATININE 0.7 (04/23/24) Report Status: Verified Date Reported: APR 24, 2024 Date Verified: APR 24, 2024 Obgyn Hospitalist Physician E-Sig:/ES/SADIA DEE MD Report: PROCEDURES: Placement [...] Primary Interpreting Staff: SADIA DEE MD, RADIOLOGIST (Obgyn Hospitalist Physician) Primary Interpreting Resident: JEFFREY FLOWER MD, FASHION MODEL /SADIA SNYDER [facility] Apr 24, 2024 02:[address] NEEDLE PLACEMENT (P): FLACA WEAVER [id number] -1950 M Exm Date: APR 24, 2024@14:11 Req Phys: TAURUS WOOD Loc: 04-24-2024@16:07 Img Loc: CT IMAGING Service: PRIMARY [place]ARE [place] [address] (Case [id number] COMPLETE) CT SCAN FOR NEEDLE PLACEMENT (CT Detailed) CPT:64993 Reason for Study: diverticular abscess Clinical History: Report Status: Verified Date Reported: APR 24, 2024 Date Verified: APR 24, 2024 Obgyn Hospitalist Physician E-Sig:/ES/SADIA DEE MD Report: PROCEDURES: Placement [...] Using real-time CT fluoroscopy, a 5 [place] catheter was advanced into the collection in [...] JUAN bulb suction with flushes, as ordered. SADIA Rubin, have reviewed the images and report. Primary Interpreting Staff: SADIA DEE MD, RADIOLOGIST (Obgyn Hospitalist Physician) Primary Interpreting Resident: JEFFREY FLOWER MD, FASHION MODEL /SADIA SNYDER [facility] Apr 23, 2024 06:[address] [place] [address] ABDOMEN/PELVIS: FLACA WEAVER [id number] -1950 M Exm Date: APR 23, 2024@06:36 Req Phys: MCKAY VICTOR Pat Loc: 04-24-2024@10:25 Img Loc: OUTSOURCE CT Service: Unknown (Case [id number] COMPLETE) [place] ABDOMEN/PELVIS (CT Detailed) CPT:79767 Reason for Study: OUTSIDE STUDY Clinical History: OUTSIDE STUDY Report Status: Electronically Filed Date Reported: APR 24, 2024 Report: This is an outside Imaging study and/or report imported for continuity of patient care. This Imaging study and/or report was not reviewed or verified by a [place] Radiologist. Impression: This is an outside Imaging study and/or report imported for continuity of patient care. This Imaging study and/or report was not reviewed or verified by a [place] Radiologist. Primary Diagnostic Code: VERIFIED BY: / [...] PORT: Reporting Lab: [facility] [CLIA# [id number]] [place] [address] Accession [UID]: [id number] [[id number]] Received: Apr 21, 2024@08:16 Collection sample: URINE Collection date: Apr 21, 2024 07:28 Provider: ANANDA HUGGINS Comment on specimen: RECEIVED IN STERILE CUP Test(s) ordered: CULTURE & SUSCEPTIBILITY...... completed: Apr 22, 2024 * BACTERIOLOGY FINAL REPORT => Apr 22, 2024 08:38 TECH CODE: [id number] CULTURE RESULTS: NO GROWTH 24 HOURS Bacteriology Remark(s): THIS REPORT IS FINAL =--=--=--=--=--=--=--=--=--=--=--=- -=--=--=--=--=--=--=--=--=--=--=--= --=--=-- Performing Laboratory: Bacteriology Report Performed By: [facility] [CLIA# [id number]] [address] [place] [address] [facility] Encounter Notes: All associated encounter notes This section contains the clinical notes associated to the Encounter. Date/Time Encounter Note(s) Provider Source May 07, 2024 08:54 AM NURSING OUTPATIENT NOTE: LOCAL TITLE: MEDICINE CLINIC NURSING RN NOTE STANDARD TITLE: NURSING OUTPATIENT NOTE DATE OF NOTE: MAY 07, 2024@08:54 ENTRY DATE: MAY 07, 2024@08:54:57 AUTHOR: GUERITA AGUILA COSIGNER: URGENCY: STATUS: COMPLETED TYPE OF VISIT: Nurse Clinic REASON FOR VISIT: Hospital f/u BP check and pt requesting refill of medication HCTZ/Lisinopril. When pt taken back to room for his appt, he was aggitated and sw[facility] about [facility]. Pt kept saying he wants his prescription for lisinopril refilled. Explained to pt there is not a prescription for lisinopril but there is a combination med which is HCTZ / lisinopril. Pt's vital signs were completed and his bp was 197/72. Pt asymptomatic. Explained to pt his pressure is too high and recommended he try to calm down and we would retake his pressure in about 10 minutes. Explained to pt while he sat quietly to calm down this casualty underwriter would see if Dr. Cabrera is available to look at his chart and order the med. Pt agreed. Discussed with Dr. 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 After discussing with Dr. Cabrera retook pt BP and reading was 142/77 and he was much calmer than when he came to clinic. Explained to pt the medication he was requesting had been put on hold when he was discharged from the hospital until he sees his primary care. Also reviewed pt lab with him. Pt verbalized understanding. ALLERGIES: FACILITY ALLERGY/ADR -------- No Remote Allergy/ADR Data available for this patient [facility] TERAZOSIN PLAN: Pt scheduled for f/u appt with Dr. Cabrera 05/15. /alexi/ GUERITA AGUILA RN REGISTERED NURSE Signed: 05/07/2024 09:12 GUERITA AGUILA [facility]
--- OUTSIDE RECORDS SUMMARY | 2024-07-16 07:25 | XMS_ITS | Encounter Summary ---
Author Name [facility] [place] [facility] [place] [facility] [place] Address [address] [place] [address] Care Team Providers Care Charge Attendant Name Role Phone JATINDER BENITEZ Primary Care [...] PART A Sep 29, 2016 PART A [id number] JUDY WEAVER PATIENT Selected Encounter This section includes the information on record at [place] for the Encounter. 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 This section includes future appointments and future orders which are active, pending or scheduled. Future Appointments This section includes appointments that were scheduled to occur 6 months from the date of the Encounter, up to a maximum of 20 appointments. The data comes from all [facility]. Appointment Date/Time Appointment Type Appointme nt Facility Name May 22, 2024 07:30 AM AMBULATORY - [...] 07:00 AM AMBULATORY - NONE [place] [facility] Jun 27, 2024 07:30 AM AMBULATORY - [place]ICINE [place] [facility] Jun 27, 2024 08:00 AM AMBULATORY - MEDICINE [place] [facility] Jul 03, 2024 05:55 AM AMBULATORY - NONE [place] [facility] Jul 13, 2024 08:15 AM AMBULATORY - NONE [place] [facility] Active, Pending, and Scheduled Orders This section includes a listing of several types of active, pending, and scheduled orders, including clinic medications orders, diagnostic test orders, procedure orders and consult orders; where the start date of the order is 45 days before the date of the Encounter or 45 days after the date of theEncounter. The data comes from all [facility]. Test Date/Time Test Type Test Details Facility Name Apr 26, 2024 10:10 AM Laboratory - Microbiology Order CULTURE & SUSCEPTIBILITY WOUND OTHER WC ONCE ~For Test: CULTURE & SUSCEPTIBILITY ~Culture sample from JUAN drain output [facility] Apr 26, 2024 10:10 AM Laboratory - Microbiology Order GRAM STAIN WOUND OTHER WC ONCE ~For Test: GRAM STAIN ~JUAN drain culture/gram stain [facility] May 28, 2024 12:00 AM Laboratory - Blood Bank Order TYPE & SCREEN - LAB BLOOD SP [facility] Jun 08, 2024 09:57 AM Laboratory - Chemistry Order URINALYSIS URINE WC ONCE [facility] Jun 12, 2024 12:00 AM Laboratory - Chemistry Order BNP PLASMA SP ONCE [facility] Jun 21, 2024 05:45 PM Laboratory - Blood Bank Order TYPE & SCREEN - LAB BLOOD WC [facility] Lab Results: +/- 30 days of the encounter This section includes the Chemistry and Hematology Lab Results on record with [place] for the patient. Radiology Reports and Pathology Reports are provided separately, in subsequent sections. Lab Results This section contains the Chemistry/Hematology Results that were resulted 30 days before or 30 daysafter the date of the Encounter. Date/Time Source Result Type Result - Unit Interpretation Reference Range Comment Jun 08, 2024 10:59 AM [facility] PROTHROMBIN TIME/INR Specimen Type: PLASMA No comment entered. Ordering Provider: PALMIRA POWELL Report Released Date/Time: May 28, 2024 09:02 AM Reporting Lab: [facility] [phone] Performing Lab: [facility] [address] .INR 1.0 0.8-1.1 .PT 11.8 s 9.4-12.5 Jun 08, 2024 10:59 AM [facility] CBC Specimen Type: BLOOD No comment entered. Ordering Provider: PALMIRA POWELL Report Released Date/Time: May 28, 2024 09:02 AM Reporting Lab: [facility] [address] Performing Lab: [facility] [address] WBC 16.1 H 4.0-11.0 RBC 5.02 4.60-6.20 HGB 16.0 g/dL 13.5-17.9 HCT 47.1 41.0-54.0 MCV 93.8 fL 80.0-100.0 MCH 31.9 pg 27.0-33.0 MCHC 34.0 g/dL 32.0-37.5 PLT 228 150-400 MPV 10.3 fL 9.1-13.0 RDW 14.6 H 11.5-14.5 Jun 08, 2024 10:59 AM [facility] HEMOGLOBIN A1C Specimen Type: BLOOD Comment: Values obtained from A1C measurements can vary. For typical A1C assays, a reported value of 7.0 could actually be between 6.7 and 7.3 if measured by a reference method. A reported value of 9.0 could actually be between 8.7 and 9.3. Ref: http://www.ng sp.org/CAPdat a.asp Ordering Provider: PALMIRA POWELL Report Released Date/Time: May 28, 2024 09:02 AM Reporting Lab: [facility] [address] Performing Lab: [facility] [address] HEMOGLOBIN A1C 4.9 4.0-6.0 Jun 08, 2024 10:59 AM [facility] BASIC METABOLIC PANEL+MG Specimen Type: PLASMA No comment entered. Ordering Provider: PALMIRA POWELL Report Released Date/Time: May 28, 2024 09:02 AM Reporting Lab: [facility] [address] Performing Lab: [facility] [address] CREATININE 0.9 mg/dL 0.7-1.2 UREA NITROGEN 15 mg/dL 8-26 GLUCOSE 93 mg/dL 70-100 SODIUM 139 mmol/L 136-145 POTASSIUM 3.7 mmol/L 3.5-5.1 CHLORIDE 106 mmol/L 98-107 CO2 25 mmol/L 22-29 CALCIUM 9.8 mg/dL 8.4-10.2 MAGNESIUM 2.1 mg/dL 1.6-2.6 ANION GAP 8 mmol/L 5-15 .CREAT EGFR(CKD-EPI) >90 >60 May 21, 2024 06:59 AM [facility] BASIC METABOLIC PANEL+MG Specimen Type: PLASMA No comment entered. Ordering Provider: GOLDIE BENITEZ Report Released Date/Time: May 15, 2024 08:34 AM Reporting Lab: [facility] [phone] Performing Lab: [facility] [address] CREATININE 0.9 mg/dL 0.7-1.2 UREA NITROGEN 18 mg/dL 8-26 GLUCOSE 126 mg/dL H 70-100 SODIUM 138 mmol/L 136-145 POTASSIUM 4.0 mmol/L 3.5-5.1 CHLORIDE 105 mmol/L 98-107 CO2 24 mmol/L 22-29 CALCIUM 9.8 mg/dL 8.4-10.2 MAGNESIUM 2.0 mg/dL 1.6-2.6 ANION GAP 9 mmol/L 5-15 .CREAT EGFR(CKD-EPI) >90 >60 May 04, 2024 08:36 AM [facility] BASIC METABOLIC PANEL+MG Specimen Type: PLASMA No comment entered. Ordering Provider: GOLDIE BENITEZ Report Released Date/Time: May 03, 2024 12:52 PM Reporting Lab: [facility] [address] Performing Lab: [facility] [address] CREATININE 0.7 mg/dL 0.7-1.2 UREA NITROGEN 13 mg/dL 8-26 GLUCOSE 91 mg/dL 70-100 SODIUM 141 mmol/L 136-145 POTASSIUM 3.6 mmol/L 3.5-5.1 CHLORIDE 109 mmol/L H 98-107 CO2 25 mmol/L 22-29 CALCIUM 8.9 mg/dL 8.4-10.2 MAGNESIUM 2.0 mg/dL 1.6-2.6 ANION GAP 7 mmol/L 5-15 .CREAT EGFR(CKD-EPI) >90 >60 Apr 26, 2024 07:16 AM [facility] BASIC METABOLIC PANEL+MG Specimen Type: PLASMA No comment entered. Ordering Provider: JONO RANDOLPH Report Released Date/Time: Apr 25, 2024 02:50 PM Reporting Lab: [facility] [address] Performing Lab: [facility] [address] CREATININE 0.7 mg/dL 0.7-1.2 UREA NITROGEN 15 mg/dL 8-26 GLUCOSE 106 mg/dL H 70-100 SODIUM 139 mmol/L 136-145 POTASSIUM 3.4 mmol/L L 3.5-5.1 CHLORIDE 105 mmol/L 98-107 CO2 25 mmol/L 22-29 CALCIUM 8.5 mg/dL 8.4-10.2 MAGNESIUM 2.2 mg/dL 1.6-2.6 ANION GAP 9 mmol/L 5-15 .CREAT EGFR(CKD-EPI) >90 >60 Apr 25, 2024 05:10 PM [facility] BASIC METABOLIC PANEL+MG Specimen Type: PLASMA No comment entered. Ordering Provider: GIOVANNI ADLER Report Released Date/Time: Apr 25, 2024 05:04 PM Reporting Lab: [facility] [address] Performing Lab: [facility] [address] CREATININE 0.7 mg/dL 0.7-1.2 UREA NITROGEN 15 mg/dL 8-26 GLUCOSE 104 mg/dL H 70-100 SODIUM 139 mmol/L 136-145 POTASSIUM 3.2 mmol/L L 3.5-5.1 CHLORIDE 103 mmol/L 98-107 CO2 28 mmol/L 22-29 CALCIUM 8.5 mg/dL 8.4-10.2 MAGNESIUM 2.2 mg/dL 1.6-2.6 ANION GAP 8 mmol/L 5-15 .CREAT EGFR(CKD-EPI) >90 >60 Apr 25, 2024 07:46 AM [facility] BASIC METABOLIC PANEL+MG Specimen Type: PLASMA No comment entered. Ordering Provider: GIOVANNI ADLER Report Released Date/Time: Apr 24, 2024 12:37 PM Reporting Lab: [facility] [address] Performing Lab: [facility] [address] CREATININE 0.7 mg/dL 0.7-1.2 UREA NITROGEN 14 mg/dL 8-26 GLUCOSE 127 mg/dL H 70-100 SODIUM 139 mmol/L 136-145 POTASSIUM 2.9 mmol/L L 3.5-5.1 CHLORIDE 101 mmol/L 98-107 CO2 29 mmol/L 22-29 CALCIUM 8.7 mg/dL 8.4-10.2 MAGNESIUM 2.3 mg/dL 1.6-2.6 ANION GAP 9 mmol/L 5-15 .CREAT EGFR(CKD-EPI) >90 >60 Apr 24, 2024 04:42 PM [facility] BASIC METABOLIC PANEL+MG Specimen Type: PLASMA No comment entered. Ordering Provider: GIOVANNI ADLER Report Released Date/Time: Apr 24, 2024 12:37 PM Reporting Lab: [facility] [address] Performing Lab: [facility] [address] CREATININE 0.7 mg/dL 0.7-1.2 UREA NITROGEN 16 mg/dL 8-26 GLUCOSE 97 mg/dL 70-100 SODIUM 138 mmol/L 136-145 POTASSIUM 2.7 mmol/L L 3.5-5.1 CHLORIDE 99 mmol/L 98-107 CO2 30 mmol/L H 22-29 CALCIUM 8.4 mg/dL 8.4-10.2 MAGNESIUM 2.1 mg/dL 1.6-2.6 ANION GAP 9 mmol/L 5-15 .CREAT EGFR(CKD-EPI) >90 >60 Apr 24, 2024 07:36 AM [facility] BASIC METABOLIC PANEL+MG Specimen Type: PLASMA Comment: Critical Value Reported To: Cait Zamorano RN 04-24-24@[address] [place] [address]. Critical value report confirmed. Ordering Provider: AARON VICTOR Report Released Date/Time: Apr 23, 2024 05:30 PM Reporting Lab: [facility] [address] Performing Lab: [facility] [address] CREATININE 0.7 mg/dL 0.7-1.2 UREA NITROGEN 16 mg/dL 8-26 GLUCOSE 105 mg/dL H 70-100 SODIUM 138 mmol/L 136-145 POTASSIUM 2.3 mmol/L LL 3.5-5.1 CHLORIDE 98 mmol/L 98-107 CO2 29 mmol/L 22-29 CALCIUM 8.3 mg/dL L 8.4-10.2 MAGNESIUM 2.2 mg/dL 1.6-2.6 ANION GAP 11 mmol/L 5-15 .CREAT EGFR(CKD-EPI) >90 >60 Apr 24, 2024 07:35 AM [facility] CBC & DIFF Specimen Type: BLOOD Comment: Automated Differential Performed Ordering Provider: AARON VICTOR Report Released Date/Time: Apr 23, 2024 05:30 PM Reporting Lab: [facility] [address] Performing Lab: [facility] [address] WBC 10.49 10*3/uL 4.0-11.0 RBC 3.83 10*6/uL [...] 0-0.1 Apr 23, 2024 01:20 PM [facility] LACTIC ACID Specimen Type: PLASMA No comment entered. Ordering Provider: AARON VICTOR Report Released Date/Time: Apr 23, 2024 12:05 PM Reporting Lab: [facility] [address] Performing Lab: [facility] [address] LACTIC ACID 1.5 mmol/L 0.5-2.2 Apr 23, 2024 01:20 PM [facility] PROTHROMBIN TIME/INR Specimen Type: PLASMA No comment entered. Ordering Provider: AARON VICTOR Report Released Date/Time: Apr 23, 2024 12:05 PM Reporting Lab: [facility] [address] Performing Lab: [facility] [address] .INR 1.2 H 0.8-1.1 .PT 14.5 s H 9.4-12.5 Apr 23, 2024 01:20 PM [facility] ACT PART THROMBO TIME Specimen Type: PLASMA No comment entered. Ordering Provider: AARON VICTOR Report Released Date/Time: Apr 23, 2024 12:05 PM Reporting Lab: [facility] [address] Performing Lab: [facility] [address] APTT 29.3 s 25.1-36.5 Apr 23, 2024 01:20 PM [facility] COMPREHENSIVE METABOLIC PANEL+MG Specimen Type: PLASMA No comment entered. Ordering Provider: AARON VICTOR Report Released Date/Time: Apr 23, 2024 12:05 PM Reporting Lab: [facility] [address] Performing Lab: [facility] [address] CREATININE 0.7 mg/dL 0.7-1.2 UREA NITROGEN 19 [...] >60 Apr 23, 2024 01:20 PM [facility] CBC & DIFF Specimen Type: BLOOD Comment: Automated Differential Performed Ordering Provider: AARON VICTOR Report Released Date/Time: Apr 23, 2024 12:05 PM Reporting Lab: [facility] [address] Performing Lab: [facility] [address] WBC 12.50 10*3/uL H 4.0-11.0 RBC 4.07 [...] 0-0.1 Apr 21, 2024 07:28 AM [facility] URINALYSIS Specimen Type: URINE No comment entered. Ordering Provider: ANANDA HUGGINS Report Released Date/Time: Apr 21, 2024 07:37 AM Reporting Lab: [facility] [address] Performing Lab: [facility] [address] URINE COLOR COLORLESS SPECIFIC GRAVITY 1.009 1.003-1.03 [...] Height Weight Body Mass Index Source May 16, 2024 07:56 AM 96.5 48 136/73 97 [place] [facility] Social History: Smoking Status (Most [...] Mar 23, 2016 CLINICAL WARNING TIM TERAN [place] [facility] [facility] Radiology Reports: +/- [...] 09:00 AM IR FISTULOGRAM OR SINOGRAM : MEGFLACADARCI LOBO [id number] -1950 M Exm Date: MAY 25, 2024@09:00 Req Phys: AMINTA ESCALONA Loc: [facility] XRAY INTERVENTIONAL RADIO Img Loc: INTERVENTIONAL RADIOLOGY Service: [place] [address] (Case [id number] COMPLETE) IR FISTULOGRAM OR SINOGRAM (ANI Detailed) CPT:98771 Contrast Media : unspecified contrast media Reason [...] 25, 2024 Date Verified: MAY 25, 2024 Lockstitch Front Maker E-Sig:/ES/DAVID BURNS MD Report: PROCEDURES 05/25/2024 [...] Primary Interpreting Staff: DAVID BURNS MD, RADIOLOGIST (Lockstitch Front Maker) /CSS DAVID BURNS [facility] May 25, 2024 08:[address] (AP) ABDOMEN/PELVIS (P): FLACA WEAVER [id number] -1950 M Exm Date: MAY 25, 2024@08:23 Req Phys: DAVID BURNS Pat Loc: [facility] XRAY INTERVENTIONAL RADIO Img Loc: CT IMAGING Service: [place] [address] (Case [id number] COMPLETE) CT (AP) ABDOMEN/PELVIS W/O CONTRA(CT Detailed) CPT:01583 Reason for Study: assess abscess and possible [...] PLASMA .CREAT EGFR(CKD-E >90 Ref: >=60 Allergies: ([facility]) TERAZOSIN (Mar 13, 2015) Report Status: Verified Date Reported: MAY 25, 2024 Date Verified: MAY 25, 2024 Lockstitch Front Maker E-Sig:/ES/JESSENIA GOODMAN MD Report: EXAM: CT [...] pelvis 04/23/2024.; CT abdomen pelvis 05/05/2020 FINDINGS: PAVING STONE INSTALLER: Pigtail catheter projecting over the left hemipelvis [...] Primary Interpreting Staff: JESSENIA GOODMAN MD, RADIOLOGIST (Lockstitch Front Maker) Primary Interpreting Resident: YOHANNES MELO DO, OPTICAL ELEMENT COATER /CMJESSENIA SOSA [facility] May 11, 2024 12:39 PM IR FISTULOGRAM / SINOGRAM (P): FLACA WEAVER [id number] -1950 M Exm Date: MAY 11, 2024@12:39 Req Phys: PALMIRA POWELL Loc: [facility] C/R FOLLOW-UP CLINIC (Req' Img Loc: INTERVENTIONAL RADIOLOGY Service: [place] [address] (Case [id number] COMPLETE) IR INJECTION FOR SINOGRAM DIAGNOS(ANI Detailed) CPT:53972 Contrast Media : Non-ionic Iodinated Reason for Study: s/p drain placement for diverticular abscess- assess for drain (Case [id number] COMPLETE) IR FISTULOGRAM OR SINOGRAM (ANI Detailed) CPT:50288 Contrast Media : unspecified contrast media (Case [id number] COMPLETE) IR DRAINAGE CATHETER SUPPLY (ANI Detailed) CPT:C1729 Clinical History: [place] IS NOT under investigation for COVID-19 or is COVID-19 negative s/p drain placement for diverticular abscess- assess for drain removal Contact number for responsible provider who can be reached for any questions or notifications of critical findings: [phone] Palmira Powell MD LAST CREATININE 0.7 (05/04/24) Report Status: Verified Date Reported: MAY 11, 2024 Date Verified: MAY 11, 2024 Lockstitch Front Maker E-Sig:/ES/AMINTA ESCALONA MD Report: PROCEDURES Abdominal [...] Interpreting Staff: AMINTA ESCALONA MD, INTERVENTIONAL RADIOLOGIST ([place]) /AMINTA VELAZCO [facility] May 11, 2024 11:[address] (AP) ABDOMEN/PELVIS (P): FLACA WEAVER [id number] -1950 M Exm Date: MAY 11, 2024@11:40 Req Phys: PALMIRA POWELL Loc: [facility] C/R FOLLOW-UP CLINIC (Req' Img Loc: CT IMAGING Service: [place] [address] (Case [id number] COMPLETE) CT (AP) ABDOMEN/PELVIS W CONTRAST(CT Detailed) CPT:85083 Contrast Media : Non-ionic Iodinated Reason for [...] any questions or notifications of critical findings: [phone] Palmira Powell MD LAST 3: Collection DT [...] PLASMA .CREAT EGFR(CKD-E >90 Ref: >=60 Allergies: ([place] only) TERAZOSIN (Mar 13, 2015) Report Status: Verified Date Reported: MAY 11, 2024 Date Verified: MAY 11, 2024 Lockstitch Front Maker E-Sig:/ES/LISA PENDLETON MD Report: CT abdomen [...] Primary Interpreting Staff: LISA PENDLETON MD, RADIOLOGIST (Lockstitch Front Maker) /JRT HELDERWALTAlex Hammond [facility] Apr 24, 2024 02:13 PM ABSCESS DRAIN PLACEMENT PERITONEAL (P): FLACA WEAVER [id number] -1950 M Exm Date: APR 24, 2024@14:13 Req Phys: TAURUS WOOD Loc: 3KS/04-24-2024@16:07 Img Loc: INTERVENTIONAL RADIOLOGY Service: PRIMARY [place] [address] (Case [id number] COMPLETE) IR PERITONEAL/RETROPERITONEAL PER(ANI Detailed) CPT:06185 Reason for Study: diverticular abscess Clinical History: [...] any questions or notifications of critical findings: [phone] If ordering provider is a trainee, enter the name and contact information of the responsible staff physician. Palmira Powell MD LAST CREATININE 0.7 (04/23/24) Report Status: Verified Date Reported: APR 24, 2024 Date Verified: APR 24, 2024 Lockstitch Front Maker E-Sig:/ES/SADIA DEE MD Report: PROCEDURES: Placement [...] Primary Interpreting Staff: SADIA DEE MD, RADIOLOGIST (Lockstitch Front Maker) Primary Interpreting Resident: JEFFREY FLOWER MD, OPTICAL ELEMENT COATER /SADIA SNYDER [facility] Apr 24, 2024 02:[address] NEEDLE PLACEMENT (P): FLACA WEAVER [id number] -1950 M Exm Date: APR 24, 2024@14:11 Req Phys: TAURUS WOOD Loc: 3K04-24-2024@16:07 Img Loc: CT IMAGING Service: PRIMARY [place] [address] (Case [id number] COMPLETE) CT SCAN FOR NEEDLE PLACEMENT (CT Detailed) CPT:01228 Reason for Study: diverticular abscess Clinical History: Report Status: Verified Date Reported: APR 24, 2024 Date Verified: APR 24, 2024 Lockstitch Front Maker E-Sig:/ES/SADIA DEE MD Report: PROCEDURES: Placement [...] Primary Interpreting Staff: SADIA DEE MD, RADIOLOGIST (Lockstitch Front Maker) Primary Interpreting Resident: JEFFREY FLOWER MD, OPTICAL ELEMENT COATER /SADIA SNYDER [facility] Apr 23, 2024 06:[address] [place] [address] ABDOMEN/PELVIS: FLACA WEAVER [id number] -1950 M Exm Date: APR 23, 2024@06:36 Req Phys: MCKAY VICTOR [facility] Loc: 3K04-24-2024@10:25 Img Loc: OUTSOURCE CT Service: Unknown (Case [id number] COMPLETE) NON [place] CT ABDOMEN/PELVIS (CT Detailed) CPT:99090 Reason for Study: OUTSIDE STUDY Clinical History: OUTSIDE STUDY Report Status: Electronically Filed Date Reported: APR 24, 2024 Report: This is an outside Imaging study and/or report imported for continuity of patient care. This Imaging study and/or report was not reviewed or verified by a [place] Radiologist. Impression: This is an outside Imaging study and/or report imported for continuity of patient care. This Imaging study and/or report was not reviewed or verified by a [place] Radiologist. Primary Diagnostic Code: VERIFIED BY: / *ELECTRONICALLY FILED* [facility] Pathology Reports: [...] comes from all [place] treatment facilities. Date/Time Pathology Report Provider Source Jun 08, 2024 11:00 AM LR MICROBIOLOGY RE PORT: Reporting Lab: [facility] [CLIA# [id number]] [place] [address] Accession [UID]: [id number] [[id number]] Received: Jun 08, 2024@11:00 Collection sample: URINE Collection date: Jun 08, 2024 11:00 Provider: PALMIRA POWELL Comment on specimen: urine Test(s) ordered: CULTURE & SUSCEPTIBILITY...... completed: Jun 09, 2024 * BACTERIOLOGY FINAL REPORT => Jun 09, 2024 19:12 TECH CODE: [id number] CULTURE RESULTS: ESCHERICHIA COLI - Quantity: >100,000 Comment: Cefazolin result can be used to infer susceptibility for cephalexin. Cefazolin interpretation applies only to uncomplicated cystitis. ANTIBIOTIC SUSCEPTIBILITY TEST RESULTS: ESCHERICHIA COLI : AMP/SULBACT................... R PIP-TAZO...................... S CEFAZOLIN..................... S CEFTAZIDIME................... S CEFTRIAXONE................... S IMIPENEM...................... S ERTAPENEM..................... S GENTAMICIN.................... S CIPROFLOXACIN................. S TRIMETH/SULFA................. S NITROFURANTOIN................ S Bacteriology Remark(s): THIS REPORT IS FINAL =--=--=--=--=--=--=--=--=--=--=--=- -=--=--=--=--=--=--=--=--=--=--=--= --=--=-- Performing Laboratory: Bacteriology Report Performed By: [facility] [CLIA# [id number]] [place] [address] [facility] Apr 21, 2024 07:28 AM LR MICROBIOLOGY RE PORT: Reporting Lab: [facility] [CLIA# [id number]] [place] [address] Accession [UID]: [id number] [[id number]] Received: Apr 21, 2024@08:16 Collection sample: URINE Collection date: Apr 21, 2024 07:28 Provider: ANANDA HUGGINS Comment on specimen: RECEIVED IN STERILE CUP Test(s) ordered: CULTURE & SUSCEPTIBILITY...... completed: Apr 22, 2024 * BACTERIOLOGY FINAL REPORT => Apr 22, 2024 08:38 TECH CODE: [id number] CULTURE RESULTS: NO GROWTH 24 HOURS Bacteriology Remark(s): THIS REPORT IS FINAL =--=--=--=--=--=--=--=--=--=--=--=- -=--=--=--=--=--=--=--=--=--=--=--= --=--=-- Performing Laboratory: Bacteriology Report Performed By: [facility] [CLIA# [id number]] [place] [address] [facility] Encounter Notes: All associated encounter notes This section contains the clinical notes associated to the Encounter. Date/Time Encounter Note(s) Provider Source May 16, 2024 07:57 AM COLON & RECTAL ELISA BRAEDEN NURSING NOTE: LOCAL TITLE: COLON-RECTAL CLINIC NURSING NOTE STANDARD TITLE: COLON & RECTAL SURGERY NURSING NOTE DATE OF NOTE: MAY 16, 2024@07:57 ENTRY DATE: MAY 16, 2024@07:57:33 AUTHOR: DAMION MALDONADO EXP COSIGNER: URGENCY: STATUS: COMPLETED COLON-RECTAL CLINIC NURSING NOTE Has ADDENDA Vital Signs: Temperature: 96.5 F [35.8 C] (05/16/2024 07:56) Blood Pressure: 136/73 (05/16/2024 07:56) Heart Rate: 48 (05/16/2024 07:56) Respiratory Rate: 17 (05/15/2024 08:20) Pain: 0 (05/15/2024 08:20) Type of Visit: Follow up /alexi/ DAMION MALDONADO LPN LPN Signed: 05/16/2024 08:00 05/16/2024 ADDENDUM STATUS: COMPLETED EDUCATION: PARTICIPANT(s): Patient Home Blood Pressure Monitoring Prosthetics consult ordered for home blood pressure monitor. /alexi/ DAMION MALDONADO LPN LPN Signed: 05/16/2024 08:29 DAMION MALDONADO [facility] May 16, 2024 07:45 AM COLON & RECTAL ELISA BRAEDEN ATTENDING NOTE: LOCAL TITLE: COLON-RECTAL CLINIC NOTE STANDARD TITLE: COLON & RECTAL SURGERY ATTENDING NOTE DATE OF NOTE: MAY 16, 2024@07:45 ENTRY DATE: MAY 21, 2024@07:54:37 AUTHOR: PALMIRA POWELL EXP COSIGNER: URGENCY: STATUS: COMPLETED This is a delayed entry for patient that was seen on Tuesday05/16/2024 at 7:45am. 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 Had a CT/fistulogram that is suspicious for fistula from the colon to the drain. Patient doing well. no abdominal pain. No F/C. PE: Temperature: 96.5 F [35.8 C] (05/16/2024 07:56) Blood Pressure: 136/73 (05/16/2024 07:56) Pulse: 48 (05/16/2024 07:56) Respiration: 17 (05/15/2024 08:20) Pain: 0 (05/15/2024 08:20) Pulse Oximetry: 97% (05/16/2024 07:56) AAOx3, NAD Drain in place A/P: This is 73-year-old gentleman with complicated diverticulitis - patient will need surgery; likely will need to keep the drain in until surgery - will tentatively plan on Tuesday 07/03 - Fistulogram in 2 weeks - rtc in 2 weeks - Total time spent reviewing chart, patient care and consultation on day of clinic visit: 20min /es/ PALMIRA POWELL MD STAFF SURGEON, COLON/RECTAL Signed: 05/21/2024 08:05 PALMIRA POWELL [facility]
--- OUTSIDE RECORDS SUMMARY | 2024-07-16 07:25 | XMS_ITS | Encounter Summary ---
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 Date/Time Encounter Type Encounter Description Reason Provider Source May 15, 2024 08:30 AM OFFICE O/P EST MOD 30 MIN PRIMARY CARE/MEDICINE ICD-10-CM I10 Essential (primary) hypertension GOLDIE CABRERA Alex Encounter Template Text not used by [place] Assessments - Encounter Diagnoses This section includes the primary and secondary diagnoses documented for the Encounter. Date/Time Primary/Secondary Diagnosis Diagnosis Name Provider Source May 15, 2024 11:08 AM PRIMARY Essential (primary) hypertension GOLDIE CABRERA [facility] May 15, 2024 11:08 AM SECONDARY Encounter for immunization RUKHSANA BOUCHER [facility] Plan of Treatment: Future Appointments (+ 6 months) and Future Tests (+/- 45 days) The Plan of Treatment section includes future care activities for the patient [facility] [place] [facility] This section includes future appointments and future orders which are active, pending or scheduled. Future Appointments This section includes appointments that were scheduled to occur 6 months from the date of the Encounter, up to a maximum of 20 appointments. The data comes from all [facility]. Appointment Date/Time Appointment Type Appointme nt Facility Name May 16, 2024 07:45 AM AMBULATORY - SURGERY [facility] May 22, 2024 07:30 AM AMBULATORY - NONE [facility] May 22, 2024 05:30 PM AMBULATORY - NONE [facility] May 25, 2024 08:22 AM AMBULATORY - NONE [facility] May 25, 2024 09:00 AM AMBULATORY - NONE [facility] May 28, 2024 08:15 AM AMBULATORY - SURGERY [facility] Jun 04, 2024 11:30 AM AMBULATORY - NONE [facility] Jun 08, 2024 11:00 AM AMBULATORY - SURGERY [facility] Jun 08, 2024 12:45 PM AMBULATORY - NONE [facility] Jun 08, 2024 01:15 PM AMBULATORY - MEDICINE [facility] Jun 08, 2024 01:45 PM AMBULATORY - SURGERY [facility] Jun 21, 2024 04:48 PM AMBULATORY - MEDICINE [facility] Jun 21, 2024 05:45 PM AMBULATORY - NONE [facility] Jun 27, 2024 07:00 AM AMBULATORY - NONE [facility] Jun 27, 2024 07:30 AM AMBULATORY - MEDICINE [facility] Jun 27, 2024 08:00 AM AMBULATORY - MEDICINE [facility] Jul 03, 2024 05:55 AM AMBULATORY - NONE [facility] Jul 13, 2024 08:15 AM AMBULATORY - NONE [facility] Active, Pending, and Scheduled Orders This [...] ~JUAN drain culture/gram stain [facility] May 28, 2024 12:00 AM Laboratory - Blood Bank Order TYPE & SCREEN - LAB BLOOD SP [facility] Jun 08, 2024 09:57 AM Laboratory - Chemistry Order URINALYSIS URINE WC ONCE [facility] Jun 12, 2024 12:00 AM Laboratory - Chemistry Order BNP PLASMA SP ONCE [facility] Jun 21, 2024 05:45 PM Laboratory - Blood Bank Order TYPE & SCREEN - LAB BLOOD WC [facility] Lab Results: +/- 30 [...] Range Comment Jun 08, 2024 10:59 AM [facility] PROTHROMBIN TIME/INR Specimen Type: PLASMA No comment entered. Ordering Provider: PALMIRA POWELL Report Released Date/Time: May 28, 2024 09:02 AM Reporting Lab: [facility] [phone] Performing Lab: [facility] [address] .INR 1.0 0.8-1.1 .PT 11.8 s 9.4-12.5 Jun 08, 2024 10:59 AM [facility] CBC Specimen Type: BLOOD No comment entered. Ordering Provider: PALMIRA POWELL Report Released Date/Time: May 28, 2024 09:02 AM Reporting Lab: [facility] [address] Performing Lab: [facility] [address] WBC 16.1 H 4.0-11.0 RBC 5.02 4.60-6.20 HGB 16.0 g/dL 13.5-17.9 HCT 47.1 41.0-54.0 MCV 93.8 fL 80.0-100.0 MCH 31.9 pg 27.0-33.0 MCHC 34.0 g/dL 32.0-37.5 PLT 228 150-400 MPV 10.3 fL 9.1-13.0 RDW 14.6 H 11.5-14.5 Jun 08, 2024 10:59 AM [facility] HEMOGLOBIN A1C Specimen Type: BLOOD Comment: [...] May 28, 2024 09:02 AM Reporting Lab: [facility] [phone] Performing Lab: [facility] [phone] HEMOGLOBIN A1C 4.9 4.0-6.0 Jun 08, 2024 10:59 AM [facility] BASIC METABOLIC PANEL+MG Specimen Type: PLASMA No comment entered. Ordering Provider: APLMIRA POWELL Report Released Date/Time: May 28, 2024 09:02 AM Reporting Lab: [facility] [phone] Performing Lab: [facility] [address] CREATININE 0.9 mg/dL 0.7-1.2 UREA NITROGEN 15 mg/dL 8-26 GLUCOSE 93 mg/dL 70-100 SODIUM 139 mmol/L 136-145 POTASSIUM 3.7 mmol/L 3.5-5.1 CHLORIDE 106 mmol/L 98-107 CO2 25 mmol/L 22-29 CALCIUM 9.8 mg/dL 8.4-10.2 MAGNESIUM 2.1 mg/dL 1.6-2.6 ANION GAP 8 mmol/L 5-15 .CREAT EGFR(CKD-EPI) >90 >60 May 21, 2024 06:59 AM [facility] BASIC METABOLIC PANEL+MG Specimen Type: PLASMA No comment entered. Ordering Provider: GOLDIE CABRERA Report Released Date/Time: May 15, 2024 08:34 AM Reporting Lab: [facility] [phone] Performing Lab: [facility] [address] CREATININE 0.9 mg/dL 0.7-1.2 UREA NITROGEN 18 mg/dL 8-26 GLUCOSE 126 mg/dL H 70-100 SODIUM 138 mmol/L 136-145 POTASSIUM 4.0 mmol/L 3.5-5.1 CHLORIDE 105 mmol/L 98-107 CO2 24 mmol/L 22-29 CALCIUM 9.8 mg/dL 8.4-10.2 MAGNESIUM 2.0 mg/dL 1.6-2.6 ANION GAP 9 mmol/L 5-15 .CREAT EGFR(CKD-EPI) >90 >60 May 04, 2024 08:36 AM [facility] BASIC METABOLIC PANEL+MG Specimen Type: PLASMA No comment entered. Ordering Provider: GOLDIE CABRERA Report Released Date/Time: May 03, 2024 12:52 PM Reporting Lab: [facility] [phone] Performing Lab: [facility] [address] CREATININE 0.7 mg/dL 0.7-1.2 UREA NITROGEN 13 mg/dL 8-26 GLUCOSE 91 mg/dL 70-100 SODIUM 141 mmol/L 136-145 POTASSIUM 3.6 mmol/L 3.5-5.1 CHLORIDE 109 mmol/L H 98-107 CO2 25 mmol/L 22-29 CALCIUM 8.9 mg/dL 8.4-10.2 MAGNESIUM 2.0 mg/dL 1.6-2.6 ANION GAP 7 mmol/L 5-15 .CREAT EGFR(CKD-EPI) >90 >60 Apr 26, 2024 07:16 AM [facility] BASIC METABOLIC PANEL+MG Specimen Type: PLASMA No comment entered. Ordering Provider: JONO RANDOLPH Report Released Date/Time: Apr 25, 2024 02:50 PM Reporting Lab: [facility] [address] Performing Lab: [facility] [address] CREATININE 0.7 mg/dL 0.7-1.2 UREA NITROGEN 15 [...] Apr 25, 2024 05:04 PM Reporting Lab: [facility] [phone] Performing Lab: [facility] [address] CREATININE 0.7 mg/dL 0.7-1.2 UREA NITROGEN 15 [...] Apr 24, 2024 12:37 PM Reporting Lab: [facility] [address] Performing Lab: [facility] [address] CREATININE 0.7 mg/dL 0.7-1.2 UREA NITROGEN 14 [...] Apr 24, 2024 12:37 PM Reporting Lab: [facility] [address] Performing Lab: [facility] [address] CREATININE 0.7 mg/dL 0.7-1.2 UREA NITROGEN 16 [...] Critical Value Reported To: Cait Zamorano RN 04-24-24@[address] [place] [address]. Critical value report confirmed. Ordering Provider: AARON VICTOR Report Released Date/Time: Apr 23, 2024 05:30 PM Reporting Lab: [facility] [address] Performing Lab: [facility] [address] CREATININE 0.7 mg/dL 0.7-1.2 UREA NITROGEN 16 [...] Apr 23, 2024 05:30 PM Reporting Lab: [facility] [address] Performing Lab: [facility] [address] WBC 10.49 10*3/uL 4.0-11.0 RBC 3.83 10*6/uL [...] Apr 23, 2024 12:05 PM Reporting Lab: [facility] [address] Performing Lab: [facility] [address] LACTIC ACID 1.5 mmol/L 0.5-2.2 Apr 23, 2024 01:20 PM [facility] ACT PART THROMBO TIME Specimen Type: PLASMA No comment entered. Ordering Provider: AARON VICTOR Report Released Date/Time: Apr 23, 2024 12:05 PM Reporting Lab: [facility] [address] Performing Lab: [facility] [address] APTT 29.3 s 25.1-36.5 Apr 23, 2024 01:20 PM [facility] PROTHROMBIN TIME/INR Specimen Type: PLASMA No comment entered. Ordering Provider: AARON VICTOR Report Released Date/Time: Apr 23, 2024 12:05 PM Reporting Lab: [facility] [address] Performing Lab: [facility] [address] .INR 1.2 H 0.8-1.1 .PT 14.5 s H 9.4-12.5 Apr 23, 2024 01:20 PM [facility] COMPREHENSIVE METABOLIC PANEL+MG Specimen Type: PLASMA No comment entered. Ordering Provider: AARON VICTOR Report Released Date/Time: Apr 23, 2024 12:05 PM Reporting Lab: [facility] [address] Performing Lab: [facility] [address] CREATININE 0.7 mg/dL 0.7-1.2 UREA NITROGEN 19 [...] Apr 23, 2024 12:05 PM Reporting Lab: [facility] [address] Performing Lab: [facility] [address] WBC 12.50 10*3/uL H 4.0-11.0 RBC 4.07 [...] Apr 21, 2024 07:37 AM Reporting Lab: [facility] [address] Performing Lab: [facility] [address] URINE COLOR COLORLESS SPECIFIC GRAVITY 1.009 1.003-1.03 [...] Height Weight Body Mass Index Source May 15, 2024 08:20 AM 98.6 62 139/81 17 98 0 71 210 29 [facility] Immunizations: All administered on the encounter date This section contains immunizations associated to the Encounter. Immunization Series Date Issued Reaction Comments INFLUENZA, HIGH-DOSE, TRIVALENT, PF May 15 Social History: Smoking Status (Most current) and [...] 15, 2024 08:30 AM VA[facility]TO[facility]ACCO [facility] 15 YRS OR MORE [facility] May 06, 2023 11:30 AM VA-TOBACCO FORMER USER [facility] May 06, 2023 11:30 AM [...] 2016 CLINICAL WARNING [facility] Radiology Reports: +/- 30 days [...] IR FISTULOGRAM OR SINOGRAM : MEGFLACADARCI LOBO [id number] -1950 M Exm Date: MAY 25, 2024@09:00 Req Phys: AMINTA ESCALONA Loc: [facility] XRAY INTERVENTIONAL RADIO Img Loc: INTERVENTIONAL RADIOLOGY Service: [place] [address] (Case [id number] COMPLETE) IR FISTULOGRAM OR SINOGRAM (ANI Detailed) CPT:12071 Contrast Media : unspecified contrast media Reason for Study: s/p drain placement for diverticular abscess- assess for drain Clinical History: Arion IS NOT under investigation for COVID-19 or [...] 25, 2024 Date Verified: MAY 25, 2024 Manufacturing Support Engineer E-Sig:/ES/DAVID BURNS MD Report: PROCEDURES 05/25/2024 9:48 [...] Primary Interpreting Staff: DAVID BURNS MD, RADIOLOGIST (Manufacturing Support Engineer) /[facility] DAVID BURNS [facility] May 25, 2024 08:[address] (AP) ABDOMEN/PELVIS (P): FLACA WEAVER [id number] -1950 M Exm Date: MAY 25, 2024@08:23 Req Phys: DAVID BURNS Pat Loc: [facility] XRAY INTERVENTIONAL RADIO Img Loc: CT IMAGING Service: [place] [address] (Case [id number] COMPLETE) CT (AP) ABDOMEN/PELVIS W/O CONTRA(CT Detailed) CPT:28650 Reason for Study: assess abscess and possible drain removal Clinical History: no contrast per stampe Per Joint Commission Standards, by signing this diagnostic imaging request the ordering provider confirms they have considered patients age and recent imaging history. Defer to radiologist for final CT protocol. Contact number for responsible provider who can be reached for any questions or notifications of critical findings: 1961 stampe LAST 3: Collection DT Specimen Test Name Result Units Ref Range 05/21/2024 06:59 PLASMA CREATININE 0.9 mg/dL 0.7 - 1.2 05/04/2024 08:36 PLASMA CREATININE 0.7 mg/dL 0.7 - 1.2 04/26/2024 05:30 PLASMA CREATININE 0.7 mg/dL 0.7 - 1.2 05/21/2024 06:59 PLASMA .CREAT EGFR(CKD-E >90 Ref: >=60 05/04/2024 08:36 PLASMA .CREAT EGFR(CKD-E >90 Ref: >=60 04/26/2024 05:30 PLASMA .CREAT EGFR(CKD-E >90 Ref: >=60 Allergies: ([facility]) TERAZOSIN (Mar 13, 2015) Report Status: Verified Date Reported: MAY 25, 2024 Date Verified: MAY 25, 2024 Manufacturing Support Engineer E-Sig:/ES/JESSENIA GOODMAN MD Report: EXAM: CT abdomen and pelvis without intravenous contrast. 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 TECHNIQUE: Helical acquisition of image data was performed for the abdomen and pelvis without intravenous contrast. Dose: 512.57 mGy*cm COMPARISON: CT abdomen pelvis with contrast 05/11/[address] abdomen pelvis 04/23/2024.; CT abdomen pelvis 05/05/2020 FINDINGS: LINOLEUM INSTALLER: Pigtail catheter projecting over the left [...] Primary Interpreting Staff: JESSENIA GOODMAN MD, RADIOLOGIST (Manufacturing Support Engineer) Primary Interpreting Resident: YOHANNES MELO DO, OPERATION SUPERVISOR /JESSENIA LOUIE [facility] May 11, 2024 12:39 PM IR FISTULOGRAM / SINOGRAM (P): FLACA WEAVER YAMIL [id number] -1950 M Exm Date: MAY 11, 2024@12:39 Req Phys: PALMIRA POWELL Loc: [facility] (Req' Img Loc: INTERVENTIONAL RADIOLOGY Service: [place] [address] (Case [id number] COMPLETE) IR INJECTION FOR SINOGRAM DIAGNOS(ANI Detailed) CPT:01448 Contrast Media : Non-ionic Iodinated Reason for Study: s/p drain placement for diverticular abscess- assess for drain (Case [id number] COMPLETE) IR FISTULOGRAM OR SINOGRAM (ANI Detailed) CPT:56607 Contrast Media : unspecified contrast media (Case [id number] COMPLETE) IR DRAINAGE CATHETER SUPPLY (ANI Detailed) CPT:C1729 Clinical History: IS NOT under investigation for COVID-19 or is COVID-19 negative s/p drain placement for diverticular abscess- assess for drain removal Contact number for responsible provider who can be reached for any questions or notifications of critical findings: [phone] Palmira Powell MD LAST CREATININE 0.7 (05/04/24) Report Status: Verified Date Reported: MAY 11, 2024 Date Verified: MAY 11, 2024 Manufacturing Support Engineer E-Sig:/ES/AMINTA ESCALONA MD Report: PROCEDURES Abdominal [...] Interpreting Staff: AMINTA ESCALONA MD, INTERVENTIONAL RADIOLOGIST (Manufacturing Support Engineer) /AMINTA VELAZCO [facility] May 11, 2024 11:[address] (AP) ABDOMEN/PELVIS (P): FLACA WEAVER [id number] -1950 M Exm Date: MAY 11, 2024@11:40 Req Phys: PALMIRA POWELL Loc: [facility] (Req' Img Loc: CT IMAGING Service: [place] [address] (Case [id number] COMPLETE) CT (AP) ABDOMEN/PELVIS W CONTRAST(CT Detailed) CPT:27075 Contrast Media : Non-ionic Iodinated Reason for [...] any questions or notifications of critical findings: [phone] Palmira Powell MD LAST 3: Collection DT [...] PLASMA .CREAT EGFR(CKD-E >90 Ref: >=60 Allergies: ([facility]) TERAZOSIN (Mar 13, 2015) Report Status: Verified Date Reported: MAY 11, 2024 Date Verified: MAY 11, 2024 Manufacturing Support Engineer E-Sig:/ES/LISA PENDLETON MD Report: CT abdomen [...] Primary Interpreting Staff: LISA PENDLETON MD, RADIOLOGIST (Manufacturing Support Engineer) /JRT LISA PENDLETON [facility] Apr 24, 2024 02:13 PM ABSCESS DRAIN PLACEMENT PERITONEAL (P): FLACA WEAVER [id number] -1950 M Exm Date: APR 24, 2024@14:13 Req Phys: ISRAELGRACIELAVITA HILLMAN Amanda Loc: 3K04-24-2024@16:07 Img Loc: INTERVENTIONAL RADIOLOGY Service: [place] [address] (Case [id number] COMPLETE) IR PERITONEAL/RETROPERITONEAL PER(ANI Detailed) CPT:16342 Reason for Study: diverticular abscess Clinical History: Arion IS NOT under investigation for COVID-19 or is COVID-19 negative 73yo M with hx of recurrent diverticulitis, transferred from OSH 04/[address] 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 Found to have 2nd degree heart block, planning pacemaker placement Contact number for responsible provider who can be reached for any questions or notifications of critical findings: [phone] If ordering provider is a trainee, enter the name and contact information of the responsible staff physician. Palmira Powell MD LAST CREATININE 0.7 (04/23/24) Report Status: Verified Date Reported: APR 24, 2024 Date Verified: APR 24, 2024 Manufacturing Support Engineer E-Sig:/ES/SADIA DEE MD Report: PROCEDURES: Placement [...] anesthesia. Using real-time CT fluoroscopy, a 5 [place] Island[place] Yueh catheter was advanced into the collection in the left lower quadrant. A wire was coiled in the collection. The tract into the collection was dilated to accommodate the 12 [place] locking pigtail drainage catheter. The catheter was secured to the skin with monofilament suture and connected to JUAN bulb suction. Impression: Successful placement of a 12 [place] Island[place] locking pigtail drainage catheter in the left lower quadrant abscess. This catheter is connected to JUAN bulb suction with flushes, as ordered. I, SADIA DEE, have reviewed the images and report. Primary Interpreting Staff: SADIA DEE MD, RADIOLOGIST (Manufacturing Support Engineer) Primary Interpreting Resident: JEFFREY FLOWER MD, OPERATION SUPERVISOR /SADIA SNYDER [facility] Apr 24, 2024 02:[address] NEEDLE PLACEMENT (P): FLACA WEAVER [id number] -1950 M Exm Date: APR 24, 2024@14:11 Req Phys: ISRAELTAURUS KADY Amanda Loc: 3K04-24-2024@16:07 Im Loc: CT IMAGING Service: [place] [address] (Case [id number] COMPLETE) CT SCAN FOR NEEDLE PLACEMENT (CT Detailed) CPT:56806 Reason for Study: diverticular abscess Clinical History: Report Status: Verified Date Reported: APR 24, 2024 Date Verified: APR 24, 2024 Manufacturing Support Engineer E-Sig:/ES/SADIA DEE MD Report: PROCEDURES: Placement [...] anesthesia. Using real-time CT fluoroscopy, a 5 [place] Island[place] Yueh catheter was advanced into the collection in the left lower quadrant. A wire was coiled in the collection. The tract into the collection was dilated to accommodate the 12 [place] Island[place] locking pigtail drainage catheter. The catheter was secured to the skin with monofilament suture and connected to JUAN bulb suction. Impression: Successful placement of a 12 [place] Island[place] locking pigtail drainage catheter in the left lower quadrant abscess. This catheter is connected to JUAN bulb suction with flushes, as ordered. I, SADIA DEE, have reviewed the images and report. Primary Interpreting Staff: SADIA DEE MD, RADIOLOGIST (Manufacturing Support Engineer) Primary Interpreting Resident: JEFFREY FLOWER MD, OPERATION SUPERVISOR /PETERB SADIA DEE [facility] Apr 23, 2024 06:36 [address] [facility] CT ABDOMEN/PELVIS: FLACA WEAVER [id number] -1950 M Ex Date: APR 23, 2024@06:36 Req Phys: MCKAY VICTOR [facility] Loc: 3K04-24-2024@10:25 Img Loc: OUTSOURCE CT Service: Unknown (Case [id number] COMPLETE) NON CA CT ABDOMEN/PELVIS (CT Detailed) CPT:20412 Reason for Study: OUTSIDE STUDY Clinical History: [...] PORT: Reporting Lab: [facility] [CLIA# [id number]] [place] [address] Accession [UID]: [id number] [[id number]] Received: Jun 08, 2024@11:00 Collection sample: URINE Collection date: Jun 08, 2024 11:00 Provider: PALMIRA POWELL Comment on specimen: urine Test(s) ordered: CULTURE & SUSCEPTIBILITY...... completed: Jun 09, 2024 * BACTERIOLOGY FINAL REPORT => Jun 09, 2024 19:12 TECH CODE: [id number] CULTURE RESULTS: ESCHERICHIA COLI - Quantity: >100,000 [...] Report Performed By: [facility] [CLIA# [id number]] [place] [address] [facility] Apr 21, 2024 07:28 AM LR MICROBIOLOGY RE PORT: Reporting Lab: [facility] [CLIA# [id number]] [place] [address] Accession [UID]: [id number] [[id number]] Received: Apr 21, 2024@08:16 Collection sample: URINE Collection date: Apr 21, 2024 07:28 Provider: ANANDA HUGGINS Comment on specimen: RECEIVED IN STERILE CUP Test(s) ordered: CULTURE & SUSCEPTIBILITY...... completed: Apr 22, 2024 * BACTERIOLOGY FINAL REPORT => Apr 22, 2024 08:38 TECH CODE: [id number] CULTURE RESULTS: NO GROWTH 24 HOURS Bacteriology Remark(s): THIS REPORT IS FINAL =--=--=--=--=--=--=--=--=--=--=--=- -=--=--=--=--=--=--=--=--=--=--=--= --=--=-- Performing Laboratory: Bacteriology Report Performed By: [facility] [CLIA# [id number]] [place] [address] [facility] Encounter Notes: All associated encounter notes This section contains the clinical notes associated to the Encounter. Date/Time Encounter Note(s) Provider Source May 15, 2024 09:16 AM INTERNAL MEDICINE NOTE: LOCAL TITLE: MEDICINE CLINIC NOTE STANDARD TITLE: INTERNAL MEDICINE NOTE DATE OF NOTE: MAY 15, 2024@09:16 ENTRY DATE: MAY 15, 2024@09:16:18 AUTHOR: JATINDER CABRERA EXP COSIGNER: URGENCY: STATUS: COMPLETED MEDICINE CLINIC NOTE Has ADDENDA Assessment and plan: --> CC PCP Dr Steven Sheth CAD s/p stenting RCA 2015 HFpEF HTN/Lipids -current regimen asa 81 mg qday (adherance is hit and miss) ntg sl prn Atorvastatin 40 mg QDay Empagliflozin 12.5 mg QDay Lasix 20 mg po QDay ---> RESTART TODAY Isosorbide mono ER 30 mg QDay Lis/HCTZ 5/6.25 mg QDay Spironolactone 12.5 mg QDay -restarting lasix today given resurgence of BLE pedal edema. BMP in one week Recurrent diverticulitis, complicated (admission 04/21 abscess + colovesical fistula) Chronic constipation -CLP 2019 reassuring (mild diverticulosis noted) -in ER Aug 2022 w/ LLQ pain and referred to GI given CT findings (see imaging). Treated w/ augmentin for presumed diverticulitis. -saw GI Aug 2022: CLP recommended to rule out malignancy, stopped dicyclomine d/t constipation. -CLP Aug 2023: diverticulosis, adenoma. 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 No additional CRC surveillance recommended by advertising consultant. 9. Decreased vitamin D - 02.24.2017 [...] - By 02.13.[address] 03.14.2020 OSH(ED [place], [place]): Pt. Declined Admission. 03.14.2020 CT with Mild Sigmoid diverticulitis. 04.23.2020 ED(OSH): Declined admission. 17. 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 18. Ex-tobacco user 19. Impaired Fasting Glucose (SCT [id number]) - 02.26.2014 A1c 5.8%. 20. Adrenal mass [...] 24. Hiatal hernia 25. Shoulder Pain (SCT [id number]) 26. Trigger finger 27. [facility] - [facility] Primary: Dr. Cathi Simeon, [facility], [place] [address]. Allergies: TERAZOSIN (Mar 13, 2015) EXAM: VS: Temp: 98.6 F [37.0 C] (05/15/2024 08:20) BP: 139/81 (05/15/2024 08:20) Pulse:62 (05/15/2024 08:20) Resp: 17 (05/15/2024 08:20) Pain: 0 (05/15/2024 08:20) Weight: WEIGHTS IN LAST 6 MONTHS: 210 (MAY 15, 2024@08:20:52) 211.1 (APR 23, 2024@13:59:25) General: NAD, Alert Lungs:speaking in full sentences w/ no inc WOB CTAB Heart: RRR Ext: calves soft and nontender, 2+ symmetric pedal and ankle edema DANICA Gait: stable and independant Medication Reconciliation: Education Evaluations *Was medication education provided for NEW medications or CHANGES to medications? (including medication name, dose, route, reason for use, and potential side effects). Yes. Education on what medications? Medication changes Education provided to the following: Patient Type of education provided: Verbal Written materials Assessment of patient understanding of education content. Verbalized understanding TERATOGENIC MED & CONTRACEPTION REVIEW (Optional)... ======= MEDICATION RECONCILIATION ======= List Given: An updated medication list was provided to the patient/caregiver. Active and Recently Outpatient Medications (including Supplies): Issue Date Status Last Fill Active Outpatient Medications Refills Expiration 1) ACETAMINOPHEN 325MG TAB Qty: 300 for 38 ACTIVE Issu:04-26-24 days Sig: TAKE TWO TABLETS BY MOUTH Refills: 2 Last:04-26-24 EVERY 6 HOURS NEEDED FOR PAIN Expr:04-27-25 2) AMOXICILLIN 875/CLAV K 125MG TAB Qty: ACTIVE Issu:04-26-24 20 for 10 days Sig: TAKE 1 TABLET BY Refills: 0 Last:04-26-24 MOUTH TWICE A DAY Expr:05-26-24 3) ATORVASTATIN CALCIUM 40MG TAB Qty: 45 ACTIVE Issu:07-15-23 for 90 days Sig: TAKE ONE-HALF TABLET Refills: 0 Last:04-03-24 BY MOUTH AT BEDTIME FOR CHOLESTEROL Expr:07-15-24 4) BAG,LEG LATEX REUSABLE UROCARE #[id number] ACTIVE Issu:04-26-24 Qty: 10 for 90 days Sig: USE 1 BAG Refills: 0 Last:04-26-24 DIRECTED WITH CHAPPELL Expr:07-25-24 5) BAG,LEG LATEX REUSABLE UROCARE #9532 HOLD Issu:04-26-24 Qty: 10 for 90 days Sig: USE 1 BAG Refills: 0 DIRECTED WITH CHAPPELL Expr:07-25-24 6) EMPAGLIFLOZIN 25MG TAB Qty: 45 for 90 ACTIVE Issu:01-16-24 days Sig: TAKE ONE-HALF TABLET BY Refills: 2 Last:05-11-24 MOUTH EVERY DAY Expr:01-16-25 7) FUROSEMIDE 20MG TAB Qty: 90 for 90 days ACTIVE (S) Issu:05-15-24 Sig: TAKE ONE TABLET BY MOUTH EVERY Refills: 3 Last:06-24-24 DAY FOR EXCESS FLUID Expr:05-16-25 8) GAUZE PAD 4IN X 4IN 12-PLY STERILE Qty: ACTIVE Issu:05-12-24 50 for 30 days Sig: USE GAUZE SPONGE Refills: 0 Last:05-15-24 TOPICALLY DIRECTED Expr:06-11-24 9) HCTZ 12.5/LISINOPRIL 10MG TAB Qty: 45 ACTIVE Issu:05-07-24 for 90 days Sig: TAKE ONE HALF TABLET Refills: 3 Last:05-07-24 BY MOUTH EVERY DAY FOR BLOOD PRESSURE Expr:05-08-25 10) ISOSORBIDE MONONITRATE 30MG SA TAB Qty: ACTIVE Issu:12-19-23 90 for 90 days Sig: TAKE ONE TABLET Refills: 2 Last:03-09-24 BY MOUTH EVERY DAY FOR CHEST PAIN Expr:12-19-24 11) NITROGLYCERIN 0.4MG SL TAB Qty: 100 for ACTIVE Issu:11-21-23 30 days Sig: DISSOLVE ONE TABLET Refills: 1 Last:11-21-23 UNDER THE TONGUE THREE TIMES A DAY Expr:11-21-24 NEEDED CHEST PAIN FOR CHEST PAIN * MAY REPEAT EVERY 5 MINUTES--NO MORE THAN 3 TOTAL 12) PHENAZOPYRIDINE HCL 100MG TAB Qty: 90 ACTIVE Issu:04-26-24 for 15 days Sig: TAKE TWO TABLETS BY Refills: 0 Last:04-26-24 MOUTH THREE TIMES A DAY NEEDED FOR Expr:05-26-24 BLADDER PAIN 13) PSYLLIUM ORAL PWD Qty: 1170 for 90 days ACTIVE Issu:01-30-24 Sig: TAKE 2 TEASPOONSFUL BY MOUTH Refills: 3 Last:01-31-24 EVERY DAY FOR CONSTIPATION Expr:01-30-25 14) SODIUM CHLORIDE 0.9% PF INJ SYR 10ML ACTIVE Issu:05-12-24 Qty: 60 for 30 days Sig: INJECT 10 ML Refills: 0 Last:05-15-24 TOPICALLY DIRECTED FOR IRRIGATION Expr:06-11-24 FOR WOUND CLEANSING 15) SPIRONOLACTONE 25MG TAB Qty: 45 for 90 ACTIVE Issu:01-30-24 days Sig: TAKE ONE-HALF TABLET BY Refills: 3 Last:02-08-24 MOUTH EVERY DAY FOR BLOOD PRESSURE Expr:01-30-25 16) SPONGE,DRAIN 4IN X 4IN EXCILON DEBORAH#7086 ACTIVE Issu:05-12-24 Qty: 50 for 30 days Sig: USE Refills: 11 Last:05-15-24 SPONGE(S) TOPICALLY DIRECTED Expr:05-13-25 17) TAPE,MEDIPORE H SOFT 4IN X 10YD #2864 ACTIVE Issu:05-12-24 Qty: 1 for 30 days Sig: CUT AND APPLY Refills: 11 Last:05-15-24 TAPE TOPICALLY DIRECTED Expr:05-13-25 18) URINARY DRAINAGE SET,ELISA-FIT C#0270-60 ACTIVE Issu:04-26-24 Qty: 2 for 30 days Sig: USE TUBING Refills: 0 Last:04-26-24 BARD 18'' LATEX EXT TUBE #[id number] Expr:05-26-24 DIRECTED Issue Date Status Last Fill Inactive Outpatient Medications Refills Expiration 1) FUROSEMIDE 20MG TAB Qty: 90 for 90 days DISCONTINUED Issu:01-16-24 Sig: TAKE ONE TABLET BY MOUTH EVERY Refills: 2 Last:04-06-24 DAY NEEDED FOR EXCESS FLUID TAKE Expr:01-16-25 ONE TABLET FOR WEIGHT GAIN OF 3 POUNDS OVERNIGHT OR MORE THAN 5 POUNDS IN 1 WEEK OR LEG SWELLING 2) HCTZ 12.5/LISINOPRIL 10MG TAB Qty: 45 DISCONTINUED Issu:11-21-23 for 90 days Sig: TAKE ONE HALF TABLET Refills: 2 Last:01-13-24 BY MOUTH EVERY DAY FOR BLOOD PRESSURE Expr:11-21-24 3) NITROGLYCERIN 0.4MG SL TAB Qty: 100 for DISCONTINUED Issu:05-13-23 30 days Sig: DISSOLVE ONE TABLET Refills: 1 Last:05-13-23 UNDER THE TONGUE THREE TIMES A DAY Expr:05-13-24 NEEDED FOR CHEST PAIN * MAY REPEAT EVERY 5 MINUTES--NO MORE THAN 3 TOTAL 4) PSYLLIUM ORAL PWD Qty: 390 for 30 days DISCONTINUED Issu:10-05-23 Sig: TAKE 2 TEASPOONSFUL BY MOUTH (EDIT) Last:01-27-24 EVERY DAY FOR CONSTIPATION Refills: 8 Expr:10-05-24 5) SPIRONOLACTONE 25MG TAB Qty: 15 for 30 DISCONTINUED Issu:01-13-24 days Sig: TAKE ONE-HALF TABLET BY (EDIT) Last:01-16-24 MOUTH EVERY DAY Refills: 2 Expr:01-13-25 6) SPIRONOLACTONE 25MG TAB Qty: 15 for 30 DISCONTINUED Issu:08-18-23 days Sig: TAKE ONE-HALF TABLET BY Refills: 0 Last:11-03-23 MOUTH EVERY DAY Expr:08-18-24 24 Total Medications Time spent with patient, chart review, documentation, and coordination of care: 30 minutes /alexi/ Jatinder Cabrera MD Physician Signed: 05/15/2024 11:08 05/22/2024 ADDENDUM STATUS: COMPLETED repeat BMP ok no change to POC from appt /alexi/ Jatinder Cabrera MD Physician Signed: 05/22/2024 09:29 JATINDER CABRERA [facility] May 15, 2024 08:22 AM INTERNAL MEDICINE OUTPATIENT NOTE: LOCAL TITLE: MEDICINE CLINIC NURSING NOTE STANDARD TITLE: INTERNAL MEDICINE OUTPATIENT NOTE DATE OF NOTE: MAY 15, 2024@08:22 ENTRY DATE: MAY 15, 2024@08:22:51 AUTHOR: TATA ELDER COSIGNER: DALILA ASCENCIO URGENCY: STATUS: COMPLETED MEDICINE CLINIC NURSING NOTE Has ADDENDA TYPE OF VISIT: Appointment Check In Type of appointment: In-person appointment REASON FOR VISIT: Annual ALLERGIES: TERAZOSIN (Mar 13, 2015) VITAL SIGNS: Blood Pressure: 139/81 (05/15/2024 08:20) Pulse: 62 (05/15/2024 08:20) Respiration: 17 (05/15/2024 08:20) Temperature: 98.6 F [37.0 C] (05/15/2024 08:20) Weight: 210 lb [95.25 kg] (05/15/2024 08:20) Height: 71 in [180.3 cm] (05/15/2024 08:20) BMI: 29.4 O2 Sat: 98% (05/15/2024 08:20) Pain: 0 (05/15/2024 08:20) PAIN SCREEN: Patient is not having significant pain that they wish to discuss with their provider today. MEDICATION Active Outpatient Medications (including Supplies): ACETAMINOPHEN 325MG TAB TAKE TWO TABLETS BY MOUTH EVERY 6 ACTIVE HOURS NEEDED FOR PAIN AMOXICILLIN 875/CLAV K 125MG TAB TAKE 1 TABLET BY MOUTH ACTIVE TWICE A DAY ATORVASTATIN CALCIUM 40MG TAB TAKE ONE-HALF TABLET BY ACTIVE MOUTH AT BEDTIME FOR CHOLESTEROL BAG,LEG LATEX REUSABLE UROCARE #4303 USE 1 BAG DIRECTED ACTIVE WITH CHAPPELL BAG,LEG LATEX REUSABLE UROCARE #2332 USE 1 BAG DIRECTED HOLD WITH CHAPPELL EMPAGLIFLOZIN 25MG TAB TAKE ONE-HALF TABLET BY MOUTH EVERY ACTIVE DAY GAUZE PAD GAUZE USE GAUZE SPONGE GAUZE PAD 4IN X 4IN PENDING 12-PLY STERILE TOPICALLY DIRECTED HCTZ 12.5/LISINOPRIL 10MG TAB TAKE ONE HALF TABLET BY ACTIVE MOUTH EVERY DAY FOR BLOOD PRESSURE ISOSORBIDE MONONITRATE 30MG SA TAB TAKE ONE TABLET BY ACTIVE MOUTH EVERY DAY FOR CHEST PAIN NITROGLYCERIN 0.4MG SL TAB DISSOLVE ONE TABLET UNDER THE ACTIVE TONGUE THREE TIMES A DAY NEEDED CHEST PAIN FOR CHEST PAIN * MAY REPEAT EVERY 5 MINUTES--NO MORE THAN 3 TOTAL PHENAZOPYRIDINE HCL 100MG TAB TAKE TWO TABLETS BY MOUTH ACTIVE THREE TIMES A DAY NEEDED FOR BLADDER PAIN PSYLLIUM ORAL PWD TAKE 2 TEASPOONSFUL BY MOUTH EVERY DAY ACTIVE FOR CONSTIPATION SODIUM CHLORIDE 0.9% PF INJ SYR 10ML INJECT 10 ML PENDING TOPICALLY DIRECTED SPIRONOLACTONE 25MG TAB TAKE ONE-HALF TABLET BY MOUTH ACTIVE EVERY DAY FOR BLOOD PRESSURE SPONGE,DRAIN 4IN X 4IN EXCILON DEBORAH#7086 USE SPONGE(S) PENDING TOPICALLY DIRECTED TAPE,MEDIPORE H SOFT 4IN X 10YD 3M#0797 CUT AND APPLY TAPE PENDING TOPICALLY DIRECTED URINARY DRAINAGE SET,ELISA-FIT C#0270-60 USE TUBING BARD ACTIVE 18'' LATEX EXT TUBE #[id number] DIRECTED Over the Counter/Herbal Medications: The patient states that they take some outside medications and/or herbals. Tobacco Use Screening: The patient is a former tobacco user. The patient quit fifteen or more years ago. Nursing Annual Screening: Whole Health Screen is due OR due soon (within 90 days). Whole Health Screening Why is addressing your overall health important to you? Would like to improve energy What do you want your health for (why do you want to be healthy)? Has concerns about feel swelling and feeling Fall History Screen During the past 12 months, have you had any falls? Patient does not report any falls in the past 12 months. MEDICATIONS: Patient is on one of the following medication classes: Antihypertensives, Antidepressants, Antipsychotics, Diuretics, or Controlled substance medication used for pain. Script Talk Screen Are you able to read your prescription bottles with your glasses, magnifiers or other aids? Yes or patient not taking any prescriptions. 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 Yes MOVE! Program Screen Body Mass Index (BMI)= 29.4 [place]: Collection DT Specimen Test Name Result Units Ref Range 06/04/2022 07:24 BLOOD !! HEMOGLOBIN A1C 5.8 % 4.0 - 6.0 !! Indicates COMMENTS AVAILABLE...Refer to Interim Lab Report. [facility] Hgb A1C: No data available [place] Hgb A1C: No data available Point of Care Hgb A1C: POC HGB A1C____ Outpatient Nutrition Screen Body Mass Index (BMI)= 29.4 [place]: Collection DT Specimen Test Name Result Units Ref Range 06/04/2022 07:24 BLOOD !! HEMOGLOBIN A1C 5.8 % 4.0 - 6.0 !! Indicates COMMENTS AVAILABLE...Refer to Interim Lab Report. [facility] Hgb A1C: No data available [place] Hgb A1C: No data available Point of Care Hgb A1C: POC HGB A1C____ Is patient's BMI less than 18.5? No Does patient have swallowing, coughing, or chewing problems affecting oral intake? No Has patient experienced unplanned weight loss or gain greater than 10 pounds over the last 2 months? No Is patient's Hgb A1C (Glycosylated Hemoglobin) greater than 9.5? Information not available Is patient receiving Total Parenteral Nutrition (TPN) or Tube Feedings? No Patient Health Education Screen BARRIERS/SPECIAL NEEDS: Physical limitations PREFERRED STYLE OF LEARNING: No preference stated Client Assistive Service (JOSÉ) Screen Does the patient require assistance with outpatient visit? No /alexi/ TATA ELDER SNT Signed: 05/15/2024 08:26 /alexi/ DALILA ASCENCIO MA, RN, CCCTM REGISTERED NURSE Cosigned: 05/15/2024 08:28 05/15/2024 ADDENDUM STATUS: COMPLETED Influenza Immunization: Influenza, High-Dose, Trivalent, Preservative Free (Fluzone-Syringe) Administered: INFLUENZA, HIGH-DOSE, TRIVALENT, PF Date Administered: May 15, 2024 08:30 Health Record Technician: [employer] Lot: [id number] Exp Date: Feb 25, 2025 [facility]: [phone] Admin Route/Site: INTRAMUSCULAR/LEFT DELTOID Dosage: 0.5mL Vaccine Information Statement(s): INFLUENZA(FLU) VACC(INACTIVATED OR RECOMBINANT)VIS Apr 03, 2021 ([place]) Order By: Policy Administered By: Cari Boucher The Influenza Vaccine Information Statement (VIS) was reviewed with the patient/caregiver which lists the benefits and risks of the vaccine and the risks of not receiving the Influenza vaccine. The patient/caregiver denied any prior severe reaction to this vaccine or its components or a severe allergic reaction, such as anaphylaxis, to any vaccine or any injectable therapy. The patient/caregiver gave verbal consent to receive the vaccine. /alexi/ CARI BOUCHER LPN, LPN Signed: 05/15/2024 08:38 TATA ELDER [facility]
--- OUTSIDE RECORDS SUMMARY | 2024-07-16 07:25 | XMS_ITS | Encounter Summary ---
Author Name [facility] [place] Organization [facility] [place] Address [address] [place] [address] Care Team Providers Care Insole And Heel Stiffener Name Role Phone JATINDER BENITEZ Primary Care [...] PART A Sep 29, 2016 PART A [id number] JUDY WEAVER PATIENT Selected Encounter This section includes the information on record at [place] for the Encounter. Date/Time Encounter Type Encounter Description Reason Pro vider Source May 21, 2024 09:00 AM Outpatient Encounter TELEPHONE PRIMARY CARE IHE Encounter Template Text not used by [...] 01:45 PM AMBULATORY - [place]GERY [place] [facility] Jun 21, 2024 04:48 PM AMBULATORY [place]ICINE [place] [facility] Jun 21, 2024 05:45 PM AMBULATORY - NONE [place] [facility] Jun 27, 2024 07:00 AM AMBULATORY - NONE [place] [facility] Jun 27, 2024 07:30 AM AMBUL[place]ORY - [place]ICINE [place] [facility] Jun 27, 2024 08:00 AM AMBUL[place]ORY - [place]ICINE [place] [facility] Jul 03, 2024 05:55 AM AMBULATORY - NONE [place] [facility] Jul 13, 2024 08:15 AM AMBULATORY - NONE [place] [facility] Active, Pending, and Scheduled [...] SUSCEPTIBILITY ~Culture sample from JUAN drain output [facility] Apr 26, 2024 10:10 AM Laboratory - Microbiology Order GRAM STAIN WOUND OTHER WC ONCE ~For Test: GRAM STAIN ~JUAN drain culture/gram stain [facility] May 28, 2024 12:00 AM Laboratory - Blood Bank Order TYPE & SCREEN - LAB BLOOD SP [facility] Jun 08, 2024 09:57 AM Laboratory - Chemistry Order URINALYSIS URINE WC ONCE [facility] Jun 12, 2024 12:00 AM Laboratory - Chemistry Order BNP PLASMA SP ONCE [facility] Jun 21, 2024 05:45 PM Laboratory - Blood Bank Order TYPE & SCREEN - LAB BLOOD WC [facility] Jul 03, 2024 12:00 AM Laboratory - Blood Bank Order TYPE & SCREEN - LAB BLOOD WC [facility] Lab Results: +/- [...] Range Comment Jun 08, 2024 10:59 AM [facility] PROTHROMBIN TIME/INR Specimen Type: PLASMA No comment entered. Ordering Provider: PALMIRA POWELL Report Released Date/Time: May 28, 2024 09:02 AM Reporting Lab: [facility] [address] Performing Lab: [facility] [address] .INR 1.0 0.8-1.1 .PT 11.8 s 9.4-12.5 Jun 08, 2024 10:59 AM [facility] HEMOGLOBIN A1C Specimen Type: BLOOD Comment: Values [...] 2024 09:02 AM Reporting Lab: [facility] [address] Performing Lab: [facility] [address] HEMOGLOBIN A1C 4.9 4.0-6.0 Jun 08, 2024 10:59 AM [facility] CBC Specimen Type: BLOOD No comment entered. Ordering Provider: PALMIRA POWELL Report Released Date/Time: May 28, 2024 09:02 AM Reporting Lab: [facility] [address] Performing Lab: [facility] [address] WBC 16.1 H 4.0-11.0 RBC 5.02 4.60-6.20 HGB 16.0 g/dL 13.5-17.9 HCT 47.1 41.0-54.0 MCV 93.8 fL 80.0-100.0 MCH 31.9 pg 27.0-33.0 MCHC 34.0 g/dL 32.0-37.5 PLT 228 150-400 MPV 10.3 fL 9.1-13.0 RDW 14.6 H 11.5-14.5 Jun 08, 2024 10:59 AM [facility] BASIC METABOLIC PANEL+MG Specimen Type: PLASMA No comment entered. Ordering Provider: PALMIRA POWELL Report Released Date/Time: May 28, 2024 09:02 AM Reporting Lab: [facility] [address] Performing Lab: [facility] [address] CREATININE 0.9 mg/dL 0.7-1.2 UREA NITROGEN 15 mg/dL 8-26 GLUCOSE 93 mg/dL 70-100 SODIUM 139 mmol/L 136-145 POTASSIUM 3.7 mmol/L 3.5-5.1 CHLORIDE 106 mmol/L 98-107 CO2 25 mmol/L 22-29 CALCIUM 9.8 mg/dL 8.4-10.2 MAGNESIUM 2.1 mg/dL 1.6-2.6 ANION GAP 8 mmol/L 5-15 .CREAT EGFR(CKD-EPI) >90 >60 May 21, 2024 06:59 AM [facility] BASIC METABOLIC PANEL+MG Specimen Type: PLASMA No comment entered. Ordering Provider: GOLDIE BENITEZ Report Released Date/Time: May 15, 2024 08:34 AM Reporting Lab: [facility] [address] Performing Lab: [facility] [address] CREATININE 0.9 mg/dL 0.7-1.2 UREA NITROGEN 18 mg/dL 8-26 GLUCOSE 126 mg/dL H 70-100 SODIUM 138 mmol/L 136-145 POTASSIUM 4.0 mmol/L 3.5-5.1 CHLORIDE 105 mmol/L 98-107 CO2 24 mmol/L 22-29 CALCIUM 9.8 mg/dL 8.4-10.2 MAGNESIUM 2.0 mg/dL 1.6-2.6 ANION GAP 9 mmol/L 5-15 .CREAT EGFR(CKD-EPI) >90 >60 May 04, 2024 08:36 AM [facility] BASIC METABOLIC PANEL+MG Specimen Type: PLASMA No comment entered. Ordering Provider: GOLDIE BENITEZ Report Released Date/Time: May 03, 2024 12:52 PM Reporting Lab: [facility] [address] Performing Lab: [facility] [address] CREATININE 0.7 mg/dL 0.7-1.2 UREA NITROGEN 13 mg/dL 8-26 GLUCOSE 91 mg/dL 70-100 SODIUM 141 mmol/L 136-145 POTASSIUM 3.6 mmol/L 3.5-5.1 CHLORIDE 109 mmol/L H 98-107 CO2 25 mmol/L 22-29 CALCIUM 8.9 mg/dL 8.4-10.2 MAGNESIUM 2.0 mg/dL 1.6-2.6 ANION GAP 7 mmol/L 5-15 .CREAT EGFR(CKD-EPI) >90 >60 Apr 26, 2024 07:16 AM [facility] BASIC METABOLIC PANEL+MG Specimen Type: PLASMA No comment entered. Ordering Provider: JONO RANDOLPH Report Released Date/Time: Apr 25, 2024 02:50 PM Reporting Lab: [facility] [address] Performing Lab: [facility] [address] CREATININE 0.7 mg/dL 0.7-1.2 UREA NITROGEN 15 mg/dL 8-26 GLUCOSE 106 mg/dL H 70-100 SODIUM 139 mmol/L 136-145 POTASSIUM 3.4 mmol/L L 3.5-5.1 CHLORIDE 105 mmol/L 98-107 CO2 25 mmol/L 22-29 CALCIUM 8.5 mg/dL 8.4-10.2 MAGNESIUM 2.2 mg/dL 1.6-2.6 ANION GAP 9 mmol/L 5-15 .CREAT EGFR(CKD-EPI) >90 >60 Apr 25, 2024 05:10 PM [facility] BASIC METABOLIC PANEL+MG Specimen Type: PLASMA No comment entered. Ordering Provider: GIOVANNI ADLER Report Released Date/Time: Apr 25, 2024 05:04 PM Reporting Lab: [facility] [address] Performing Lab: [facility] [address] CREATININE 0.7 mg/dL 0.7-1.2 UREA NITROGEN 15 mg/dL 8-26 GLUCOSE 104 mg/dL H 70-100 SODIUM 139 mmol/L 136-145 POTASSIUM 3.2 mmol/L L 3.5-5.1 CHLORIDE 103 mmol/L 98-107 CO2 28 mmol/L 22-29 CALCIUM 8.5 mg/dL 8.4-10.2 MAGNESIUM 2.2 mg/dL 1.6-2.6 ANION GAP 8 mmol/L 5-15 .CREAT EGFR(CKD-EPI) >90 >60 Apr 25, 2024 07:46 AM [facility] BASIC METABOLIC PANEL+MG Specimen Type: PLASMA No comment entered. Ordering Provider: GIOVANNI ADLER Report Released Date/Time: Apr 24, 2024 12:37 PM Reporting Lab: [facility] [address] Performing Lab: [facility] [address] CREATININE 0.7 mg/dL 0.7-1.2 UREA NITROGEN 14 mg/dL 8-26 GLUCOSE 127 mg/dL H 70-100 SODIUM 139 mmol/L 136-145 POTASSIUM 2.9 mmol/L L 3.5-5.1 CHLORIDE 101 mmol/L 98-107 CO2 29 mmol/L 22-29 CALCIUM 8.7 mg/dL 8.4-10.2 MAGNESIUM 2.3 mg/dL 1.6-2.6 ANION GAP 9 mmol/L 5-15 .CREAT EGFR(CKD-EPI) >90 >60 Apr 24, 2024 04:42 PM [facility] BASIC METABOLIC PANEL+MG Specimen Type: PLASMA No comment entered. Ordering Provider: GIOVANNI ADLER Report Released Date/Time: Apr 24, 2024 12:37 PM Reporting Lab: [facility] [address] Performing Lab: [facility] [address] CREATININE 0.7 mg/dL 0.7-1.2 UREA NITROGEN 16 mg/dL 8-26 GLUCOSE 97 mg/dL 70-100 SODIUM 138 mmol/L 136-145 POTASSIUM 2.7 mmol/L L 3.5-5.1 CHLORIDE 99 mmol/L 98-107 CO2 30 mmol/L H 22-29 CALCIUM 8.4 mg/dL 8.4-10.2 MAGNESIUM 2.1 mg/dL 1.6-2.6 ANION GAP 9 mmol/L 5-15 .CREAT EGFR(CKD-EPI) >90 >60 Apr 24, 2024 07:36 AM [facility] BASIC METABOLIC PANEL+MG Specimen Type: PLASMA Comment: Critical Value Reported To: Cait Zamorano RN 04-24-24@[address] [place] [address]. Critical value report confirmed. Ordering Provider: AARON VICTOR Report Released Date/Time: Apr 23, 2024 05:30 PM Reporting Lab: [facility] [address] Performing Lab: [facility] [address] CREATININE 0.7 mg/dL 0.7-1.2 UREA NITROGEN 16 mg/dL 8-26 GLUCOSE 105 mg/dL H 70-100 SODIUM 138 mmol/L 136-145 POTASSIUM 2.3 mmol/L LL 3.5-5.1 CHLORIDE 98 mmol/L 98-107 CO2 29 mmol/L 22-29 CALCIUM 8.3 mg/dL L 8.4-10.2 MAGNESIUM 2.2 mg/dL 1.6-2.6 ANION GAP 11 mmol/L 5-15 .CREAT EGFR(CKD-EPI) >90 >60 Apr 24, 2024 07:35 AM [facility] CBC & DIFF Specimen Type: BLOOD Comment: Automated Differential Performed Ordering Provider: AARON VICTOR Report Released Date/Time: Apr 23, 2024 05:30 PM Reporting Lab: [facility] [address] Performing Lab: [facility] [address] WBC 10.49 10*3/uL 4.0-11.0 RBC 3.83 10*6/uL [...] 10*3/uL 0-0.1 Apr 23, 2024 01:20 PM [facility] LACTIC ACID Specimen Type: PLASMA No comment entered. Ordering Provider: AARON VICTOR Report Released Date/Time: Apr 23, 2024 12:05 PM Reporting Lab: [facility] [address] Performing Lab: [facility] [address] LACTIC ACID 1.5 mmol/L 0.5-2.2 Apr 23, 2024 01:20 PM [facility] ACT PART THROMBO TIME Specimen Type: PLASMA No comment entered. Ordering Provider: AARON VICTOR Report Released Date/Time: Apr 23, 2024 12:05 PM Reporting Lab: [facility] [address] Performing Lab: [facility] [address] APTT 29.3 s 25.1-36.5 Apr 23, 2024 01:20 PM [facility] PROTHROMBIN TIME/INR Specimen Type: PLASMA No comment entered. Ordering Provider: AARON VICTOR Report Released Date/Time: Apr 23, 2024 12:05 PM Reporting Lab: [facility] [address] Performing Lab: [facility] [address] .INR 1.2 H 0.8-1.1 .PT 14.5 s H 9.4-12.5 Apr 23, 2024 01:20 PM [facility] COMPREHENSIVE METABOLIC PANEL+MG Specimen Type: PLASMA No comment entered. Ordering Provider: AARON VICTOR Report Released Date/Time: Apr 23, 2024 12:05 PM Reporting Lab: [facility] [address] Performing Lab: [facility] [address] CREATININE 0.7 mg/dL 0.7-1.2 UREA NITROGEN 19 [...] >90 >60 Apr 23, 2024 01:20 PM [facility] CBC & DIFF Specimen Type: BLOOD Comment: Automated Differential Performed Ordering Provider: AARON VICTOR Report Released Date/Time: Apr 23, 2024 12:05 PM Reporting Lab: [facility] [address] Performing Lab: [facility] [address] WBC 12.50 10*3/uL H 4.0-11.0 RBC 4.07 [...] 0.7 ABS IMMATURE GRAN 0.09 10*3/uL 0-0.1 Social History: Smoking Status (Most current) and [...] IR FISTULOGRAM OR SINOGRAM : FLACA WEAVER [id number] -1950 M Exm Date: MAY 25, 2024@09:00 Req Phys: AMINTA ESCALONA Loc: [facility] INTERVENTIONAL RADIO Img Loc: INTERVENTIONAL RADIOLOGY Service: [place] [address] (Case [id number] COMPLETE) IR FISTULOGRAM OR SINOGRAM (ANI Detailed) CPT:48068 Contrast Media : unspecified contrast media Reason for Study: s/p drain placement for diverticular abscess- assess for drain Clinical History: IS NOT under investigation for COVID-19 or is COVID-19 negative 2 week follow up per Dr Sonal Contact number for responsible provider who can [...] 25, 2024 Date Verified: MAY 25, 2024 Pilates Coordinator E-Sig:/ES/DAVID BURNS MD Report: PROCEDURES 05/25/2024 [...] Primary Interpreting Staff: DAVID BURNS MD, RADIOLOGIST (Pilates Coordinator) /[facility] DAVID BURNS [facility] May 25, 2024 08:[address] (AP) ABDOMEN/PELVIS (P): FLACA WEAVER [id number] -1950 M Exm Date: MAY 25, 2024@08:23 Req Phys: DAVID BURNS Loc: [facility] INTERVENTIONAL RADIO Img Loc: CT IMAGING Service: [place] [address] (Case [id number] COMPLETE) CT (AP) ABDOMEN/PELVIS W/O CONTRA(CT Detailed) CPT:64213 Reason for Study: assess abscess and possible drain removal Clinical History: no contrast per venancio Per Joint Commission Standards, by signing this diagnostic imaging request the ordering provider confirms they have considered patients age and recent imaging history. Defer to radiologist for final CT protocol. Contact number for responsible provider who can be reached for any questions or notifications of critical findings: [phone] kanikaalex LAST 3: Collection DT Specimen Test Name Result Units Ref Range 05/21/2024 06:59 PLASMA CREATININE 0.9 mg/dL 0.7 - 1.2 05/04/2024 08:36 PLASMA CREATININE 0.7 mg/dL 0.7 - 1.2 04/26/2024 05:30 PLASMA CREATININE 0.7 mg/dL 0.7 - 1.2 05/21/2024 06:59 PLASMA .CREAT EGFR(CKD-E >90 Ref: >=60 05/04/2024 08:36 PLASMA .CREAT EGFR(CKD-E >90 Ref: >=60 04/26/2024 05:30 PLASMA .CREAT EGFR(CKD-E >90 Ref: >=60 Allergies: ([place] only) TERAZOSIN (Mar 13, 2015) Report Status: Verified Date Reported: MAY 25, 2024 Date Verified: MAY 25, 2024 Pilates Coordinator E-Sig:/ES/JESSENIA GOODMAN MD Report: EXAM: CT [...] pelvis 04/23/2024.; CT abdomen pelvis 05/05/2020 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: Pigtail catheter projecting over the left hemipelvis [...] Primary Interpreting Staff: JESSENIA GOODMAN MD, RADIOLOGIST (Pilates Coordinator) Primary Interpreting Resident: YOHANNES MELO DO, CONTROL CLERK FOOD AND BEVERAGE /JESSENIA SOSA [facility] May 11, 2024 12:39 PM IR FISTULOGRAM / SINOGRAM (P): FLACA WEAVER [id number] -1950 M Exm Date: MAY 11, 2024@12:39 Req Phys: PALMIRA POWELL Loc: [facility] C/R FOLLOW-UP CLINIC (Req' Img Loc: INTERVENTIONAL RADIOLOGY Service: [place] [address] (Case [id number] COMPLETE) IR INJECTION FOR SINOGRAM DIAGNOS(ANI Detailed) CPT:56370 Contrast Media : Non-ionic Iodinated Reason for Study: s/p drain placement for diverticular abscess- assess for drain (Case [id number] COMPLETE) IR FISTULOGRAM OR SINOGRAM (ANI Detailed) CPT:85967 Contrast Media : unspecified contrast media (Case [id number] COMPLETE) IR DRAINAGE CATHETER SUPPLY (ANI Detailed) CPT:C1729 Clinical History: IS NOT under investigation for COVID-19 or is COVID-19 negative s/p drain placement for diverticular abscess- assess for drain removal Contact number for responsible provider who can be reached for any questions or notifications of critical findings: [phone] Palmira Powell MD LAST CREATININE 0.7 (05/04/24) Report Status: Verified Date Reported: MAY 11, 2024 Date Verified: MAY 11, 2024 Pilates Coordinator E-Sig:/ES/AMINTA ESCALONA MD Report: PROCEDURES Abdominal [...] Interpreting Staff: AMINTA ESCALONA MD, INTERVENTIONAL RADIOLOGIST (Pilates Coordinator) /AMINTA VELAZCO [facility] May 11, 2024 11:[address] (AP) ABDOMEN/PELVIS (P): MARSHA WEAVERDARCI LOBO [id number] -1950 M Exm Date: MAY 11, 2024@11:40 Req Phys: PALMIRA POWELL Loc: [facility] C/R FOLLOW-UP CLINIC (Req' Img Loc: CT IMAGING Service: [place] [address] (Case [id number] COMPLETE) CT (AP) ABDOMEN/PELVIS W CONTRAST(CT Detailed) CPT:64589 Contrast Media : Non-ionic Iodinated Reason for [...] any questions or notifications of critical findings: [phone] Palmira Powell MD LAST 3: Collection DT [...] PLASMA .CREAT EGFR(CKD-E >90 Ref: >=60 Allergies: ([place] only) TERAZOSIN (Mar 13, 2015) Report Status: Verified Date Reported: MAY 11, 2024 Date Verified: MAY 11, 2024 Pilates Coordinator E-Sig:/ES/LISA PENDLETON MD Report: CT abdomen [...] Primary Interpreting Staff: LISA PENDLETON MD, RADIOLOGIST (Pilates Coordinator) /JRT LISA PENDLETON [facility] Apr 24, 2024 02:13 PM ABSCESS DRAIN PLACEMENT PERITONEAL (P): MEGFLACA YAMIL [id number] -1950 M Exm Date: APR 24, 2024@14:13 Req Phys: TAURUS WOOD Loc: 3KS/04-24-2024@16:07 Img Loc: INTERVENTIONAL RADIOLOGY Service: [place] [address] (Case [id number] COMPLETE) IR PERITONEAL/RETROPERITONEAL PER(ANI Detailed) CPT:44775 Reason for Study: diverticular abscess Clinical History: [...] any questions or notifications of critical findings: [phone] If ordering provider is a trainee, enter the name and contact information of the responsible staff physician. Palmira Powell MD LAST CREATININE 0.7 (04/23/24) Report Status: Verified Date Reported: APR 24, 2024 Date Verified: APR 24, 2024 Pilates Coordinator E-Sig:/ES/SADIA DEE MD Report: PROCEDURES: Placement [...] Using real-time CT fluoroscopy, a 5 Armenian Minubeeh catheter was advanced into the collection in [...] Primary Interpreting Staff: SADIA DEE MD, RADIOLOGIST (Pilates Coordinator) Primary Interpreting Resident: JEFFREY FLOWER MD, CONTROL CLERK FOOD AND BEVERAGE /SADIA SNYDER [facility] Apr 24, 2024 02:[address] NEEDLE PLACEMENT (P): FLACA WEAVER [id number] -1950 M Exm Date: APR 24, 2024@14:11 Req Phys: TAURUS WOOD Loc: 04-24-2024@16:07 Im Loc: CT IMAGING Service: [place] [address] (Case [id number] COMPLETE) CT SCAN FOR NEEDLE PLACEMENT (CT Detailed) CPT:67522 Reason for Study: diverticular abscess Clinical History: Report Status: Verified Date Reported: APR 24, 2024 Date Verified: APR 24, 2024 Pilates Coordinator E-Sig:/ES/SADIA DEE MD Report: PROCEDURES: Placement [...] Primary Interpreting Staff: SADIA DEE MD, RADIOLOGIST (Pilates Coordinator) Primary Interpreting Resident: JEFFREY FLOWER MD, CONTROL CLERK FOOD AND BEVERAGE /B SADIA DEE [facility] Apr 23, 2024 06:[address] [place] [address] ABDOMEN/PELVIS: FLACA WEAVER [id number] -1950 M Exm Date: APR 23, 2024@06:36 Req Phys: MCKAY VICTOR Loc: 04-24-2024@10:25 Im Loc: OUTSOURCE CT Service: Unknown (Case [id number] COMPLETE) NON [place] CT ABDOMEN/PELVIS (CT Detailed) CPT:76337 Reason for Study: OUTSIDE STUDY Clinical History: OUTSIDE STUDY Report Status: Electronically Filed Date Reported: APR 24, 2024 Report: This is an outside Imaging study and/or report imported for continuity of patient care. This Imaging study and/or report was not reviewed or verified by a [place] Radiologist. Impression: This is an outside Imaging study and/or report imported for continuity of patient care. This Imaging study and/or report was not reviewed or verified by a [place] Radiologist. Primary Diagnostic Code: VERIFIED BY: / *ELECTRONICALLY FILED* [facility] Pathology Reports: +/- [...] AM LR MICROBIOLOGY RE PORT: Reporting Lab: [facility] [CLIA# [id number]] [place] [address] Accession [UID]: [id number] [[id number]] Received: Jun 08, 2024@11:00 Collection sample: URINE Collection date: Jun 08, 2024 11:00 Provider: PALMIRA POWELL Comment on specimen: urine Test(s) ordered: CULTURE & SUSCEPTIBILITY...... completed: Jun 09, 2024 * BACTERIOLOGY FINAL REPORT => Jun 09, 2024 19:12 TECH CODE: [id number] CULTURE RESULTS: ESCHERICHIA COLI - Quantity: >100,000 [...] --=--=-- Performing Laboratory: Bacteriology Report Performed By: [facility] [CLIA# [id number]] [place] [address] [facility] Apr 21, 2024 07:28 AM LR MICROBIOLOGY RE PORT: Reporting Lab: [facility] [CLIA# [id number]] [place] [address] Accession [UID]: [id number] [[id number]] Received: Apr 21, 2024@08:16 Collection sample: URINE Collection date: Apr 21, 2024 07:28 Provider: ANANDA HUGGINS Comment on specimen: RECEIVED IN STERILE CUP Test(s) ordered: CULTURE & SUSCEPTIBILITY...... completed: Apr 22, 2024 * BACTERIOLOGY FINAL REPORT => Apr 22, 2024 08:38 TECH CODE: [id number] CULTURE RESULTS: NO GROWTH 24 HOURS Bacteriology Remark(s): THIS REPORT IS FINAL =--=--=--=--=--=--=--=--=--=--=--=- -=--=--=--=--=--=--=--=--=--=--=--= --=--=-- Performing Laboratory: Bacteriology Report Performed By: [facility] [CLIA# [id number]] [place] [address] [facility] Encounter Notes: All associated encounter notes This section contains the clinical notes associated to the Encounter. Date/Time Encounter Note(s) Provider Source May 21, 2024 09:14 AM NO SHOW NOTE: LOCAL TITLE: NO SHOW/CANCELLATION CLINIC NOTE STANDARD TITLE: NO SHOW NOTE DATE OF NOTE: MAY 21, 2024@09:14 ENTRY DATE: MAY 21, 2024@09:14:30 AUTHOR: MARTINE NG EXP COSIGNER: URGENCY: STATUS: COMPLETED not seen for scheduled appointment due to: [place] cancelled- called patient. He doesn't have BP readings, asks to start checking at home and then have a phone call later. Appointment Rescheduled: Yes- 06/04 MSA: Please cancel pharmD visit today per patient and see RTC for rescheduling. /alexi/ MARTINE NG PHARMD, BCACP CLINICAL SOFTWARE SUPPORT SPECIALIST Signed: 05/21/2024 09:15 Receipt Acknowledged By: 05/21/2024 09:16 /alexi/ LAUREEN Onofre HEAD STRETCH BOX TENDER MARTINE NG [facility]
--- OUTSIDE RECORDS SUMMARY | 2024-07-16 07:25 | XMS_ITS | Encounter Summary ---
Author Name [facility] [facility] [place] [facility] [place] Address [address] [place] [address] Care Team Providers Care Microsoft Application Developer Name Role Phone JATINDER BENITEZ Primary Care [...] PART A Sep 29, 2016 PART A [phone] JUDY WEAVER PATIENT Selected Encounter This section includes the information on record at [place] for the Encounter. Date/Time Encounter Type Encounter Description Reason Pro vider Source IHE Encounter Template Text not used by [facility] Advance Directives: All historical and current Section Date Range: From patient's date of to the date document was created. This section includes ALL of a patient's completed or amended [place] Advance and Rescinded Directives. The entries below indicate that a directive exists for the patient, but an actual copy is not included with this document. The data comes from all [place] facilities. Date Advance Directives Provider Source Mar 23, 2016 CLINICAL WARNING TIM TERAN IN [facility]
--- OUTSIDE RECORDS SUMMARY | 2024-07-16 07:25 | XMS_ITS | Encounter Summary ---
Author Name [facility] [place] [facility] [place] [facility] [place] Address [address] [place] [address] Care Team Providers Care [facility] Emergency Services Dispatcher Name Role Phone JATINDER BENITEZ Primary Care [...] PART A Sep 29, 2016 PART A [id number] [phone] JUDY WEAVER PATIENT Selected Encounter This section includes the information on record at [place] for the Encounter. Date/Time Encounter Type Encounter Description Reason Provider Source May 09, 2024 07:30 AM OFFICE O/P EST LOW 20 MIN GENERAL SURGERY ICD-10-CM K57.20 Dvtrcli of lg int w perforation and abscess w/o bleeding PALMIRA POWELL Encounter Template Text not used by [place] Assessments - Encounter Diagnoses This section includes the primary and secondary diagnoses documented for the Encounter. Date/Time Primary/Secondary Diagnosis Diagnosis Name Provider Source May 09, 2024 08:00 AM PRIMARY Dvtrcli of lg int w perforation and abscess w/o bleeding PALMIRA POWELL [facility] Plan of Treatment: Future Appointments (+ 6 months) and Future Tests (+/- 45 days) The Plan of Treatment section includes future care activities for the patient [facility] [place] [facility] This section includes future appointments and future orders which are active, pending or scheduled. Future Appointments This section includes appointments that were scheduled to occur 6 months from the date of the Encounter, up to a maximum of 20 appointments. The data comes from all [facility]. Appointment Date/Time Appointment Type Appointme nt Facility Name May 11, 2024 01:00 PM AMBULATORY - [...] SUSCEPTIBILITY ~Culture sample from JUAN drain output [facility] Apr 26, 2024 10:10 AM Laboratory - Microbiology Order GRAM STAIN WOUND OTHER WC ONCE ~For Test: GRAM STAIN ~JUAN drain culture/gram stain [facility] May 28, 2024 12:00 AM Laboratory - Blood Bank Order TYPE & SCREEN - LAB BLOOD SP [facility] Jun 08, 2024 09:57 AM Laboratory - Chemistry Order URINALYSIS URINE WC ONCE [facility] Jun 12, 2024 12:00 AM Laboratory - Chemistry Order BNP PLASMA SP ONCE [facility] Jun 21, 2024 05:45 PM Laboratory - Blood Bank Order TYPE & SCREEN - LAB BLOOD WC [facility] Lab Results: +/- 30 days of [...] Range Comment Jun 08, 2024 10:59 AM [facility] PROTHROMBIN TIME/INR Specimen Type: PLASMA No comment entered. Ordering Provider: PALMIRA POWELL Report Released Date/Time: May 28, 2024 09:02 AM Reporting Lab: [facility] [phone] Performing Lab: [facility] [address] .INR 1.0 0.8-1.1 .PT 11.8 s 9.4-12.5 Jun 08, 2024 10:59 AM [facility] CBC Specimen Type: BLOOD No comment entered. Ordering Provider: PALMIRA POWELL Report Released Date/Time: May 28, 2024 09:02 AM Reporting Lab: [facility] [phone] Performing Lab: [facility] [address] WBC 16.1 H 4.0-11.0 RBC 5.02 4.60-6.20 HGB 16.0 g/dL 13.5-17.9 HCT 47.1 41.0-54.0 MCV 93.8 fL 80.0-100.0 MCH 31.9 pg 27.0-33.0 MCHC 34.0 g/dL 32.0-37.5 PLT 228 150-400 MPV 10.3 fL 9.1-13.0 RDW 14.6 H 11.5-14.5 Jun 08, 2024 10:59 AM [facility] HEMOGLOBIN A1C Specimen Type: BLOOD Comment: [...] 2024 09:02 AM Reporting Lab: [facility] [phone] Performing Lab: [facility] [phone] HEMOGLOBIN A1C 4.9 4.0-6.0 Jun 08, 2024 10:59 AM [facility] BASIC METABOLIC PANEL+MG Specimen Type: PLASMA No comment entered. Ordering Provider: PALMIRA POWELL Report Released Date/Time: May 28, 2024 09:02 AM Reporting Lab: [facility] [phone] Performing Lab: [facility] [address] CREATININE 0.9 mg/dL 0.7-1.2 UREA NITROGEN 15 mg/dL 8-26 GLUCOSE 93 mg/dL 70-100 SODIUM 139 mmol/L 136-145 POTASSIUM 3.7 mmol/L 3.5-5.1 CHLORIDE 106 mmol/L 98-107 CO2 25 mmol/L 22-29 CALCIUM 9.8 mg/dL 8.4-10.2 MAGNESIUM 2.1 mg/dL 1.6-2.6 ANION GAP 8 mmol/L 5-15 .CREAT EGFR(CKD-EPI) >90 >60 May 21, 2024 06:59 AM [facility] BASIC METABOLIC PANEL+MG Specimen Type: PLASMA No comment entered. Ordering Provider: GOLDIE BENITEZ Report Released Date/Time: May 15, 2024 08:34 AM Reporting Lab: [facility] [phone] Performing Lab: [facility] [phone] CREATININE 0.9 mg/dL 0.7-1.2 UREA NITROGEN 18 mg/dL 8-26 GLUCOSE 126 mg/dL H 70-100 SODIUM 138 mmol/L 136-145 POTASSIUM 4.0 mmol/L 3.5-5.1 CHLORIDE 105 mmol/L 98-107 CO2 24 mmol/L 22-29 CALCIUM 9.8 mg/dL 8.4-10.2 MAGNESIUM 2.0 mg/dL 1.6-2.6 ANION GAP 9 mmol/L 5-15 .CREAT EGFR(CKD-EPI) >90 >60 May 04, 2024 08:36 AM [facility] BASIC METABOLIC PANEL+MG Specimen Type: PLASMA No comment entered. Ordering Provider: GOLDIE BENITEZ Report Released Date/Time: May 03, 2024 12:52 PM Reporting Lab: [facility] [phone] Performing Lab: [facility] [address] CREATININE 0.7 mg/dL 0.7-1.2 UREA NITROGEN 13 mg/dL 8-26 GLUCOSE 91 mg/dL 70-100 SODIUM 141 mmol/L 136-145 POTASSIUM 3.6 mmol/L 3.5-5.1 CHLORIDE 109 mmol/L H 98-107 CO2 25 mmol/L 22-29 CALCIUM 8.9 mg/dL 8.4-10.2 MAGNESIUM 2.0 mg/dL 1.6-2.6 ANION GAP 7 mmol/L 5-15 .CREAT EGFR(CKD-EPI) >90 >60 Apr 26, 2024 07:16 AM [facility] BASIC METABOLIC PANEL+MG Specimen Type: PLASMA No comment entered. Ordering Provider: JONO RANDOLPH Report Released Date/Time: Apr 25, 2024 02:50 PM Reporting Lab: [facility] [phone] Performing Lab: [facility] [phone] CREATININE 0.7 mg/dL 0.7-1.2 UREA NITROGEN 15 mg/dL 8-26 GLUCOSE 106 mg/dL H 70-100 SODIUM 139 mmol/L 136-145 POTASSIUM 3.4 mmol/L L 3.5-5.1 CHLORIDE 105 mmol/L 98-107 CO2 25 mmol/L 22-29 CALCIUM 8.5 mg/dL 8.4-10.2 MAGNESIUM 2.2 mg/dL 1.6-2.6 ANION GAP 9 mmol/L 5-15 .CREAT EGFR(CKD-EPI) >90 >60 Apr 25, 2024 05:10 PM [facility] BASIC METABOLIC PANEL+MG Specimen Type: PLASMA No comment entered. Ordering Provider: GIOVANNI ADLER Report Released Date/Time: Apr 25, 2024 05:04 PM Reporting Lab: [facility] [phone] Performing Lab: [facility] [address] CREATININE 0.7 mg/dL 0.7-1.2 UREA NITROGEN 15 mg/dL 8-26 GLUCOSE 104 mg/dL H 70-100 SODIUM 139 mmol/L 136-145 POTASSIUM 3.2 mmol/L L 3.5-5.1 CHLORIDE 103 mmol/L 98-107 CO2 28 mmol/L 22-29 CALCIUM 8.5 mg/dL 8.4-10.2 MAGNESIUM 2.2 mg/dL 1.6-2.6 ANION GAP 8 mmol/L 5-15 .CREAT EGFR(CKD-EPI) >90 >60 Apr 25, 2024 07:46 AM [facility] BASIC METABOLIC PANEL+MG Specimen Type: PLASMA No comment entered. Ordering Provider: GIOVANNI ADLER Report Released Date/Time: Apr 24, 2024 12:37 PM Reporting Lab: [facility] [phone] Performing Lab: [facility] [phone] CREATININE 0.7 mg/dL 0.7-1.2 UREA NITROGEN 14 mg/dL 8-26 GLUCOSE 127 mg/dL H 70-100 SODIUM 139 mmol/L 136-145 POTASSIUM 2.9 mmol/L L 3.5-5.1 CHLORIDE 101 mmol/L 98-107 CO2 29 mmol/L 22-29 CALCIUM 8.7 mg/dL 8.4-10.2 MAGNESIUM 2.3 mg/dL 1.6-2.6 ANION GAP 9 mmol/L 5-15 .CREAT EGFR(CKD-EPI) >90 >60 Apr 24, 2024 04:42 PM [facility] BASIC METABOLIC PANEL+MG Specimen Type: PLASMA No comment entered. Ordering Provider: GIOVANNI ADLER Report Released Date/Time: Apr 24, 2024 12:37 PM Reporting Lab: [facility] [phone] Performing Lab: [facility] [address] CREATININE 0.7 mg/dL 0.7-1.2 UREA NITROGEN 16 mg/dL 8-26 GLUCOSE 97 mg/dL 70-100 SODIUM 138 mmol/L 136-145 POTASSIUM 2.7 mmol/L L 3.5-5.1 CHLORIDE 99 mmol/L 98-107 CO2 30 mmol/L H 22-29 CALCIUM 8.4 mg/dL 8.4-10.2 MAGNESIUM 2.1 mg/dL 1.6-2.6 ANION GAP 9 mmol/L 5-15 .CREAT EGFR(CKD-EPI) >90 >60 Apr 24, 2024 07:36 AM [facility] BASIC METABOLIC PANEL+MG Specimen Type: PLASMA Comment: Critical Value Reported To: Cait Zamorano RN 04-24-24@[address] [place] [address]. Critical value report confirmed. Ordering Provider: AARON VICTOR Report Released Date/Time: Apr 23, 2024 05:30 PM Reporting Lab: [facility] [phone] Performing Lab: [facility] [address] CREATININE 0.7 mg/dL 0.7-1.2 UREA NITROGEN 16 mg/dL 8-26 GLUCOSE 105 mg/dL H 70-100 SODIUM 138 mmol/L 136-145 POTASSIUM 2.3 mmol/L LL 3.5-5.1 CHLORIDE 98 mmol/L 98-107 CO2 29 mmol/L 22-29 CALCIUM 8.3 mg/dL L 8.4-10.2 MAGNESIUM 2.2 mg/dL 1.6-2.6 ANION GAP 11 mmol/L 5-15 .CREAT EGFR(CKD-EPI) >90 >60 Apr 24, 2024 07:35 AM [facility] CBC & DIFF Specimen Type: BLOOD Comment: Automated Differential Performed Ordering Provider: AARON VICTOR Report Released Date/Time: Apr 23, 2024 05:30 PM Reporting Lab: [facility] [address] Performing Lab: [place] [phone] WBC 10.49 10*3/uL 4.0-11.0 RBC 3.83 10*6/uL [...] 10*3/uL 0-0.1 Apr 23, 2024 01:20 PM [facility] LACTIC ACID Specimen Type: PLASMA No comment entered. Ordering Provider: AARON VICTOR Report Released Date/Time: Apr 23, 2024 12:05 PM Reporting Lab: [facility] [address] Performing Lab: [facility] [address] LACTIC ACID 1.5 mmol/L 0.5-2.2 Apr 23, 2024 01:20 PM [facility] PROTHROMBIN TIME/INR Specimen Type: PLASMA No comment entered. Ordering Provider: AARON VICTOR Report Released Date/Time: Apr 23, 2024 12:05 PM Reporting Lab: [facility] [address] Performing Lab: [facility] [address] .INR 1.2 H 0.8-1.1 .PT 14.5 s H 9.4-12.5 Apr 23, 2024 01:20 PM [facility] ACT PART THROMBO TIME Specimen Type: PLASMA No comment entered. Ordering Provider: AARON VICTOR Report Released Date/Time: Apr 23, 2024 12:05 PM Reporting Lab: [facility] [address] Performing Lab: [facility] [address] APTT 29.3 s 25.1-36.5 Apr 23, 2024 01:20 PM [facility] COMPREHENSIVE METABOLIC PANEL+MG Specimen Type: PLASMA No comment entered. Ordering Provider: AARON VICTOR Report Released Date/Time: Apr 23, 2024 12:05 PM Reporting Lab: [facility] [address] Performing Lab: [facility] [address] CREATININE 0.7 mg/dL 0.7-1.2 UREA NITROGEN 19 [...] >90 >60 Apr 23, 2024 01:20 PM [facility] CBC & DIFF Specimen Type: BLOOD Comment: Automated Differential Performed Ordering Provider: AARON VICTOR Report Released Date/Time: Apr 23, 2024 12:05 PM Reporting Lab: [facility] [address] Performing Lab: [facility] [address] WBC 12.50 10*3/uL H 4.0-11.0 RBC 4.07 [...] 10*3/uL 0-0.1 Apr 21, 2024 07:28 AM [facility] URINALYSIS Specimen Type: URINE No comment entered. Ordering Provider: ANANDA HUGGINS Report Released Date/Time: Apr 21, 2024 07:37 AM Reporting Lab: [facility] [address] Performing Lab: [facility] [address] URINE COLOR COLORLESS SPECIFIC GRAVITY 1.009 1.003-1.03 [...] Height Weight Body Mass Index Source May 09, 2024 07:30 AM 132/67 JAIME LOZANO [facility] May 09, 2024 07:25 AM 98.2 62 141/70 96 0 [facility] Social History: Smoking Status (Most current) [...] 06, 2023 11:30 AM VA-TOBACCO FORMER USER [facility] Tobacco Use History This section includes a history of the smoking, or tobacco-related health factors, that were collected on or before the date of the Encounter. The data comes from the [place] facility where the Encounter took place. Date/Time Smoking Status/Tobacco Use Comment F acility May 06, 2023 11:30 AM VA-TOBACCO QUIT 15 YRS OR MORE [facility] Jun 04, 2022 09:00 AM VA-TOBACCO FORMER USER [facility] Jun 04, 2022 09:00 AM VA-TOBACCO QUIT 15 YRS OR MORE [facility] Jul 10, 2021 08:00 AM VA-TOBACCO FORMER USER [facility] Jul 10, 2021 08:00 AM VA-TOBACCO QUIT 5 TO < 15 YRS [facility] May 23, 2020 08:30 AM VA-TOBACCO FORMER USER [facility] May 23, 2020 08:30 AM VA-TOBACCO QUIT 5 TO < 15 YRS [facility] Mar 20, 2019 04:03 PM VA-TOBACCO FORMER USER [facility] Mar 20, 2019 04:03 PM VA-TOBACCO QUIT 5 TO < 15 YRS [facility] Mar 21, 2018 08:13 AM FORMER TOBACCO USER 7Y OR GREATE R [facility] Feb 24, 2017 09:24 AM FORMER TOBACCO USER 7Y OR GREATE R [facility] January 07, 2016 08:01 AM FORMER TOBACCO USE >1Y <7Y [facility] Feb 03, 2015 07:58 AM FORMER TOBACCO USE <1Y [facility] Feb 26, 2014 08:41 AM CURRENT TOBACCO USER [facility] May 13, 2011 01:45 PM CURRENT TOBACCO USER [facility] Advance Directives: All historical and current Section Date Range: From patient's date of to the date document was created. This section includes ALL of a patient's completed or amended [place] Advance and Rescinded Directives. The entries below indicate that a directive exists for the patient, but an actual copy is not included with this document. The data comes from all [place] facilities. Date Advance Directives Provider Source Mar [...] IR FISTULOGRAM OR SINOGRAM : FLACA WEAVER [id number] -1950 M Exm Date: MAY 25, 2024@09:00 Req Phys: AMINTA ESCALONA Loc: [facility] INTERVENTIONAL RADIO Img Loc: INTERVENTIONAL RADIOLOGY Service: [place] [address] (Case [id number] COMPLETE) IR FISTULOGRAM OR SINOGRAM (ANI Detailed) CPT:02509 Contrast Media : unspecified contrast media Reason [...] 25, 2024 Date Verified: MAY 25, 2024 Merchandise Examiner E-Sig:/ES/DAVID BURNS MD Report: PROCEDURES 05/25/2024 9:48 [...] Primary Interpreting Staff: DAVID BURNS MD, RADIOLOGIST (Merchandise Examiner) /CSS DAVID BURNS [facility] May 25, 2024 08:[address] (AP) ABDOMEN/PELVIS (P): FLACA WEAVER [id number] -1950 M Exm Date: MAY 25, 2024@08:23 Req Phys: DAVID BURNS Pat Loc: [facility] INTERVENTIONAL RADIO Img Loc: CT IMAGING Service: [place] [address] (Case [id number] COMPLETE) CT (AP) ABDOMEN/PELVIS W/O CONTRA(CT Detailed) CPT:33639 Reason for Study: assess abscess and possible drain removal Clinical History: no contrast per venancio Per Joint Commission Standards, by signing this diagnostic imaging request the ordering provider confirms they have considered patients age and recent imaging history. Defer to radiologist for final CT protocol. Contact number for responsible provider who can be reached for any questions or notifications of critical findings: 0102 venancio LAST 3: Collection DT Specimen Test [...] PLASMA .CREAT EGFR(CKD-E >90 Ref: >=60 Allergies: ([place] only) TERAZOSIN (Mar 13, 2015) Report Status: Verified Date Reported: MAY 25, 2024 Date Verified: MAY 25, 2024 Merchandise Examiner E-Sig:/ES/JESSENIA GOODMAN MD Report: EXAM: CT abdomen and pelvis without intravenous contrast. 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 TECHNIQUE: Helical acquisition of image data was performed for the abdomen and pelvis without intravenous contrast. 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 Portions of the colon extend anterior to [...] Primary Interpreting Staff: JESSENIA GOODMAN MD, RADIOLOGIST (Merchandise Examiner) Primary Interpreting Resident: YOHANNES MELO DO, COMMERCIAL FISHERMAN /JESSENIA LOUIE [facility] May 11, 2024 12:39 PM IR FISTULOGRAM / SINOGRAM (P): MEGFLACA YAMIL [id number] -1950 M Exm Date: MAY 11, 2024@12:39 Req Phys: PALMIRA POWELL Loc: [facility] C/R FOLLOW-UP CLINIC (Req' Img Loc: INTERVENTIONAL RADIOLOGY Service: [place] [address] (Case [id number] COMPLETE) IR INJECTION FOR SINOGRAM DIAGNOS(ANI Detailed) CPT:14369 Contrast Media : Non-ionic Iodinated Reason for Study: s/p drain placement for diverticular abscess- assess for drain (Case [id number] COMPLETE) IR FISTULOGRAM OR SINOGRAM (ANI Detailed) CPT:53141 Contrast Media : unspecified contrast media (Case [id number] COMPLETE) IR DRAINAGE CATHETER SUPPLY (ANI Detailed) CPT:C1729 Clinical History: IS NOT under investigation for COVID-19 or is COVID-19 negative s/p drain placement for diverticular abscess- assess for drain removal Contact number for responsible provider who can be reached for any questions or notifications of critical findings: [phone] Palmira Powell MD LAST CREATININE 0.7 (05/04/24) Report Status: Verified Date Reported: MAY 11, 2024 Date Verified: MAY 11, 2024 Merchandise Examiner E-Sig:/ES/AMINTA ESCALONA MD Report: PROCEDURES Abdominal drain [...] Interpreting Staff: AMINTA ESCALONA MD, INTERVENTIONAL RADIOLOGIST (Merchandise Examiner) /AMINTA VELAZCO [facility] May 11, 2024 11:[address] (AP) ABDOMEN/PELVIS (P): MEGFLACADARCI LOBO [id number] -1950 M Exm Date: MAY 11, 2024@11:40 Req Phys: PALMIRA POWELL Loc: [facility] C/R FOLLOW-UP CLINIC (Req' Img Loc: CT IMAGING Service: [place] [address] (Case [id number] COMPLETE) CT (AP) ABDOMEN/PELVIS W CONTRAST(CT Detailed) CPT:66010 Contrast Media : Non-ionic Iodinated Reason for [...] any questions or notifications of critical findings: [phone] Palmira Powell MD LAST 3: Collection DT [...] PLASMA .CREAT EGFR(CKD-E >90 Ref: >=60 Allergies: ([place] only) TERAZOSIN (Mar 13, 2015) Report Status: Verified Date Reported: MAY 11, 2024 Date Verified: MAY 11, 2024 Merchandise Examiner E-Sig:/ES/LISA PENDLETON MD Report: CT abdomen and [...] Primary Interpreting Staff: LISA PENDLETON MD, RADIOLOGIST (Merchandise Examiner) /JRT LISA PENDLETON [facility] Apr 24, 2024 02:13 PM ABSCESS DRAIN PLACEMENT PERITONEAL (P): FLACA WEAVER [id number] -1950 M Exm Date: APR 24, 2024@14:13 Req Phys: TAURUS WOOD Amanda Loc: 3KS/04-24-2024@16:07 Img Loc: INTERVENTIONAL RADIOLOGY Service: PRIMARY [place] [address] (Case [id number] COMPLETE) IR PERITONEAL/RETROPERITONEAL PER(ANI Detailed) CPT:21505 Reason for Study: diverticular abscess Clinical History: [...] any questions or notifications of critical findings: [phone] If ordering provider is a trainee, enter the name and contact information of the responsible staff physician. Palmira Powell MD LAST CREATININE 0.7 (04/23/24) Report Status: Verified Date Reported: APR 24, 2024 Date Verified: APR 24, 2024 Merchandise Examiner E-Sig:/ES/SADIA DEE MD Report: PROCEDURES: Placement of [...] anesthesia. Using real-time CT fluoroscopy, a 5 Cuban Yueh catheter was advanced into the collection in the left lower quadrant. A wire was coiled in the collection. The tract into the collection was dilated to accommodate the 12 Cuban locking pigtail drainage catheter. The catheter was secured to the skin with monofilament suture and connected to JUAN bulb suction. Impression: Successful placement of a 12 Cuban locking pigtail drainage catheter in the left lower quadrant abscess. This catheter is connected to JUAN bulb suction with flushes, as ordered. I, SADIA DEE, have reviewed the images and report. Primary Interpreting Staff: SADIA DEE MD, RADIOLOGIST (Merchandise Examiner) Primary Interpreting Resident: JEFFREY FLOWER MD, COMMERCIAL FISHERMAN /SADIA SNYDER [facility] Apr 24, 2024 02:[address] NEEDLE PLACEMENT (P): FLACA WEAVER [id number] -1950 M Exm Date: APR 24, 2024@14:11 Req Phys: TAURUS WOOD Amanda Loc: 3KS/04-24-2024@16:07 Img Loc: CT IMAGING Service: PRIMARY [place] [address] (Case [id number] COMPLETE) CT SCAN FOR NEEDLE PLACEMENT (CT Detailed) CPT:88733 Reason for Study: diverticular abscess Clinical History: Report Status: Verified Date Reported: APR 24, 2024 Date Verified: APR 24, 2024 Merchandise Examiner E-Sig:/ES/SADIA DEE MD Report: PROCEDURES: Placement of [...] anesthesia. Using real-time CT fluoroscopy, a 5 Cuban Yueh catheter was advanced into the collection in the left lower quadrant. A wire was coiled in the collection. The tract into the collection was dilated to accommodate the 12 Cuban locking pigtail drainage catheter. The catheter was secured to the skin with monofilament suture and connected to JUAN bulb suction. Impression: Successful placement of a 12 Cuban locking pigtail drainage catheter in the left lower quadrant abscess. This catheter is connected to JUAN bulb suction with flushes, as ordered. I, SADIA DEE, have reviewed the images and report. Primary Interpreting Staff: SADIA DEE MD, RADIOLOGIST (Merchandise Examiner) Primary Interpreting Resident: JEFFREY FLOWER MD, COMMERCIAL FISHERMAN /SADIA SNYDER [facility] Apr 23, 2024 06:[address] [facility] [address] ABDOMEN/PELVIS: FLACA WEAVER [id number] -1950 M Exm Date: APR 23, 2024@06:36 Req Phys: MCKAY VICTOR [facility] Loc: 04-24-2024@10:25 Im Loc: OUTSOURCE CT Service: Unknown (Case [id number] COMPLETE) NON [place] ABDOMEN/PELVIS (CT Detailed) CPT:15668 Reason for Study: OUTSIDE STUDY Clinical History: OUTSIDE STUDY Report Status: Electronically Filed Date Reported: APR 24, 2024 Report: This is an outside Imaging study and/or report imported for continuity of patient care. This Imaging study and/or report was not reviewed or verified by a [place] Radiologist. Impression: This is an outside Imaging study and/or report imported for continuity of patient care. This Imaging study and/or report was not reviewed or verified by a [place] Radiologist. Primary Diagnostic Code: VERIFIED BY: / *ELECTRONICALLY FILED* [facility] Pathology Reports: +/- 30 days of [...] AM LR MICROBIOLOGY RE PORT: Reporting Lab: [facility] [CLIA# [id number]] [place] [address] Accession [UID]: [id number] [[id number]] Received: Jun 08, 2024@11:00 Collection sample: URINE Collection date: Jun 08, 2024 11:00 Provider: PALMIRA POWELL Comment on specimen: urine Test(s) ordered: CULTURE & SUSCEPTIBILITY...... completed: Jun 09, 2024 * BACTERIOLOGY FINAL REPORT => Jun 09, 2024 19:12 TECH CODE: [id number] CULTURE RESULTS: ESCHERICHIA COLI - Quantity: >100,000 [...] --=--=-- Performing Laboratory: Bacteriology Report Performed By: [facility] [CLIA# [id number]] [place] [address] [facility] Apr 21, 2024 07:28 AM LR MICROBIOLOGY RE PORT: Reporting Lab: [facility] [CLIA# [id number]] [place] [address] Accession [UID]: [id number] [[id number]] Received: Apr 21, 2024@08:16 Collection sample: URINE Collection date: Apr 21, 2024 07:28 Provider: ANANDA HUGGINS Comment on specimen: RECEIVED IN STERILE CUP Test(s) ordered: CULTURE & SUSCEPTIBILITY...... completed: Apr 22, 2024 * BACTERIOLOGY FINAL REPORT => Apr 22, 2024 08:38 TECH CODE: [id number] CULTURE RESULTS: NO GROWTH 24 HOURS Bacteriology Remark(s): THIS REPORT IS FINAL =--=--=--=--=--=--=--=--=--=--=--=- -=--=--=--=--=--=--=--=--=--=--=--= --=--=-- Performing Laboratory: Bacteriology Report Performed By: [facility] [CLIA# [id number]] [place] [address] [facility] Encounter Notes: All associated encounter notes This section contains the clinical notes associated to the Encounter. Date/Time Encounter Note(s) Provider Source May 09, 2024 07:58 AM COLON & RECTAL ELISA DERAS ATTENDING NOTE: LOCAL TITLE: COLON-RECTAL CLINIC NOTE STANDARD TITLE: COLON & RECTAL SURGERY ATTENDING NOTE DATE OF NOTE: MAY 09, 2024@07:58 ENTRY DATE: MAY 09, 2024@07:58:55 AUTHOR: PALMIRA POWELL EXP COSIGNER: URGENCY: STATUS: COMPLETED 73-year-old gentleman with diverticulitis complicated by absces s/p drain placement. Missed CT yesterday because he fell asleep. Denies abdominal pain. Not much coming out from drain. No F/C. PE: Temperature: 98.2 F [36.8 C] (05/09/2024 07:25) Blood Pressure: 132/67 (05/09/2024 07:30) Pulse: 62 (05/09/2024 07:25) Respiration: 18 (05/07/2024 09:12) Pain: 0 (05/09/2024 07:25) Pulse Oximetry: 96% (05/09/2024 07:25) AAOx3,NAD Abd soft, NT/ND A/P: This is a 73-year-old gentleman with diverticulitis c/b abscess s/p drain placement - reorderd CT scan and IR to assess if drain can be removed - rtc in 1 week - Total time spent reviewing chart, patient care and consultation on day of clinic visit: 20min /alexi/ PALMIRA POWELL MD STAFF SURGEON, COLON/RECTAL Signed: 05/09/2024 08:01 PALMIRA POWELL [facility] May 09, 2024 07:46 AM COLON & RECTAL ELISA BRAEDEN NURSING NOTE: LOCAL TITLE: COLON-RECTAL CLINIC NURSING NOTE STANDARD TITLE: COLON & RECTAL SURGERY NURSING NOTE DATE OF NOTE: MAY 09, 2024@07:46 ENTRY DATE: MAY 09, 2024@07:46:18 AUTHOR: DAMION MALDONADO EXP COSIGNER: URGENCY: STATUS: COMPLETED Vital Signs: Temperature: 98.2 F [36.8 C] (05/09/2024 07:25) Blood Pressure: 132/67 (05/09/2024 07:30) Heart Rate: 62 (05/09/2024 07:25) Respiratory Rate: 18 (05/07/2024 09:12) Pain: 0 (05/09/2024 07:25) Type of Visit: Follow up /alexi/ DAMION MALDONADO LPN LPN Signed: 05/09/2024 07:46 DAMION MALDONADO [facility]
--- OUTSIDE RECORDS SUMMARY | 2024-07-16 07:25 | XMS_ITS | Encounter Summary ---
Author Name [facility] [place] Organization [facility] Address [address] [place] [address] Care Team Providers Care Music Artist Name Role Phone JATINDER BENITEZ Primary Care [...] PART A Sep 29, 2016 PART A [id number] JUDY WEAVER PATIENT Selected Encounter This section includes the information on record at [place] for the Encounter. Date/Time Encounter Type Encounter Description Reason Pro vider Source May 07, 2024 08:45 AM Outpatient Encounter PRIMARY CARE/MEDICINE IHE Encounter Template Text not used by [place] Plan of Treatment: Future Appointments (+ 6 [...] 02:00 PM AMBULATORY - NONE [place] [facility] May 09, 2024 07:30 AM [facility] [place] [facility] May 11, 2024 01:00 PM AMBULATORY - NONE [facility] May 11, 2024 03:30 PM AMBULATORY - NONE [facility] May 15, 2024 08:30 AM [facility] [place]IC[place] [facility] [facility] May 16, 2024 07:45 AM AMBULATORY - SURGERY [facility] May 22, 2024 07:30 AM AMBULATORY - NONE [facility] May 22, 2024 05:30 PM AMBULATORY - NONE [facility] May 25, 2024 08:22 AM AMBULATORY - NONE [facility] May 25, 2024 09:00 AM AMBULATORY - NONE [facility] May 28, 2024 08:15 AM AMBULATORY - SURGERY [facility] Jun 04, 2024 11:30 AM [facility] [place] [place] [facility] Jun 08, 2024 11:00 AM [facility] Jun 08, 2024 12:45 PM [facility] [place] [place] [facility] Jun 08, 2024 01:15 PM [facility] Jun 08, 2024 01:45 PM AMBULATORY - SURGERY [facility] Jun 21, 2024 04:48 PM AMBULATORY - MEDICINE [facility] Jun 21, 2024 05:45 PM AM[facility]ORY [place]ONE [place] [facility] Jun 27, 2024 07:00 AM [facility] Jun 27, 2024 07:30 AM AMBULATORY - MEDICINE [facility] Active, Pending, [...] JUAN drain output [facility] Apr 26, 2024 10:10 AM Laboratory - Microbiology Order GRAM STAIN WOUND OTHER WC ONCE ~For Test: GRAM STAIN ~JUAN drain culture/gram stain [facility] May 28, 2024 12:00 AM Laboratory - Blood Bank Order TYPE & SCREEN - LAB BLOOD SP [facility] Jun 08, 2024 09:57 AM Laboratory - Chemistry Order URINALYSIS URINE WC ONCE [facility] Jun 12, 2024 12:00 AM Laboratory - Chemistry Order BNP PLASMA SP ONCE [facility] Jun 21, 2024 05:45 PM Laboratory - Blood Bank Order TYPE & SCREEN - LAB BLOOD WC [facility] Lab Results: +/- [...] May 15, 2024 08:34 AM Reporting Lab: [facility] [phone] Performing Lab: [facility] [address] CREATININE 0.9 mg/dL 0.7-1.2 UREA NITROGEN 18 [...] May 03, 2024 12:52 PM Reporting Lab: [facility] [phone] Performing Lab: [facility] [address] CREATININE 0.7 mg/dL 0.7-1.2 UREA NITROGEN 13 [...] Apr 25, 2024 02:50 PM Reporting Lab: [facility] [address] Performing Lab: [facility] [address] CREATININE 0.7 mg/dL 0.7-1.2 UREA NITROGEN 15 [...] Apr 25, 2024 05:04 PM Reporting Lab: [facility] [address] Performing Lab: [facility] [address] CREATININE 0.7 mg/dL 0.7-1.2 UREA NITROGEN 15 [...] Apr 24, 2024 12:37 PM Reporting Lab: [facility] [address] Performing Lab: [facility] [address] CREATININE 0.7 mg/dL 0.7-1.2 UREA NITROGEN 14 [...] Apr 24, 2024 12:37 PM Reporting Lab: [facility] [address] Performing Lab: [facility] [address] CREATININE 0.7 mg/dL 0.7-1.2 UREA NITROGEN 16 [...] Critical Value Reported To: Cait Zamorano RN 8-27-24@[address] [place] [address]. Critical value report confirmed. Ordering Provider: AAORN VICTOR Report Released Date/Time: Apr 23, 2024 05:30 PM Reporting Lab: [facility] [address] Performing Lab: [facility] [address] CREATININE 0.7 mg/dL 0.7-1.2 UREA NITROGEN 16 [...] Apr 23, 2024 05:30 PM Reporting Lab: [facility] [address] Performing Lab: [facility] [address] WBC 10.49 10*3/uL 4.0-11.0 RBC 3.83 10*6/uL [...] Apr 23, 2024 12:05 PM Reporting Lab: [facility] [address] Performing Lab: [facility] [address] LACTIC ACID 1.5 mmol/L 0.5-2.2 Apr 23, 2024 01:20 PM [facility] ACT PART THROMBO TIME Specimen Type: PLASMA No comment entered. Ordering Provider: AARON VICTOR Report Released Date/Time: Apr 23, 2024 12:05 PM Reporting Lab: [facility] [address] Performing Lab: [facility] [address] APTT 29.3 s 25.1-36.5 Apr 23, 2024 01:20 PM [facility] PROTHROMBIN TIME/INR Specimen Type: PLASMA No comment entered. Ordering Provider: AARON VICTOR Report Released Date/Time: Apr 23, 2024 12:05 PM Reporting Lab: [facility] [address] Performing Lab: [facility] [address] .INR 1.2 H 0.8-1.1 .PT 14.5 s H 9.4-12.5 Apr 23, 2024 01:20 PM [facility] COMPREHENSIVE METABOLIC PANEL+MG Specimen Type: PLASMA No comment entered. Ordering Provider: AARON VICTOR Report Released Date/Time: Apr 23, 2024 12:05 PM Reporting Lab: [facility] [address] Performing Lab: [facility] [address] CREATININE 0.7 mg/dL 0.7-1.2 UREA NITROGEN 19 [...] Apr 23, 2024 12:05 PM Reporting Lab: [facility] [address] Performing Lab: [facility] [address] WBC 12.50 10*3/uL H 4.0-11.0 RBC 4.07 [...] Apr 21, 2024 07:37 AM Reporting Lab: [facility] [address] Performing Lab: [facility] [address] URINE COLOR COLORLESS SPECIFIC GRAVITY 1.009 1.003-1.03 [...] Source May 07, 2024 09:12 AM 142/77 [facility] May 07, 2024 09:12 AM 57 197/72 18 0 [facility] Social History: Smoking Status (Most current) and Tobacco Use (All prior to encounter date) This section includes the most current, and the historical, smoking and tobacco- related health factors from the [facility] where the Encounter took place. [...] IR FISTULOGRAM OR SINOGRAM : FLACA WEAVER [id number] -1950 M Exm Date: MAY 25, 2024@09:00 Req Phys: AMINTA ESCALONA Pat Loc: [facility] XRAY INTERVENTIONAL RADIO Img Loc: INTERVENTIONAL RADIOLOGY Service: [place] [address] (Case [id number] COMPLETE) IR FISTULOGRAM OR SINOGRAM (ANI Detailed) CPT:64190 Contrast Media : unspecified contrast media Reason for Study: s/p drain placement for diverticular abscess- assess for drain Clinical History: IS NOT under investigation for COVID-19 or is COVID-19 negative 2 week follow up per Dr Escalona Contact number for responsible provider who can be reached for any questions or notifications of critical findings: [phone] Sonal LAST 3: Collection DT Specimen Test [...] 25, 2024 Date Verified: MAY 25, 2024 Coding Validator E-Sig:/ES/DAVID BURNS MD Report: PROCEDURES 05/25/2024 9:48 [...] Primary Interpreting Staff: DAVID BURNS MD, RADIOLOGIST (Coding Validator) /CSS DAVID BURNS [facility] May 25, 2024 08:[address] (AP) ABDOMEN/PELVIS (P): FLACA WEAVER [id number] -1950 M Exm Date: MAY 25, 2024@08:23 Req Phys: DAVID BURNS Pat Loc: [facility] XRAY INTERVENTIONAL RADIO Img Loc: CT IMAGING Service: [place] [address] (Case [id number] COMPLETE) CT (AP) ABDOMEN/PELVIS W/O CONTRA(CT Detailed) CPT:85109 Reason for Study: assess abscess and possible drain removal Clinical History: no contrast per veanncio Per Joint Commission Standards, by signing this [...] .CREAT EGFR(CKD-E >90 Ref: >=60 Allergies: ([place] only) TERAZOSIN (Mar 13, 2015) Report Status: Verified Date Reported: MAY 25, 2024 Date Verified: MAY 25, 2024 Coding Validator E-Sig:/ES/JESSENIA GOODMAN MD Report: EXAM: CT abdomen and pelvis without intravenous contrast. 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 TECHNIQUE: Helical acquisition of image data was performed for the abdomen and pelvis without intravenous contrast. Dose: 512.57 mGy*cm COMPARISON: CT abdomen pelvis with contrast 05/11/[address] abdomen pelvis 04/23/2024.; CT abdomen pelvis 05/05/2020 FINDINGS: SAP DATA ANALYST: Pigtail catheter projecting over the left hemipelvis LOWER CHEST: Small pericardial effusion. Minimal bibasilar atelectasis. No consolidation. No pleural effusion. No pneumothorax. Distal esophageal wall thickening and a small esophageal hiatal hernia. Hepatobiliary: Stable presumed hepatic cyst at the hepatic dome (/28) and subcentimeter hypoattenuating focus within hepatic segment , which is too small to characterize although also likely a cyst (/158). No intra or extrahepatic biliary dilation. No [...] Primary Interpreting Staff: JESSENIA GOODMAN MD, RADIOLOGIST (Coding Validator) Primary Interpreting Resident: YOHANNES MELO DO, SERVICE DIRECTOR /JESSENIA LOUIE [facility] May 11, 2024 12:39 PM IR FISTULOGRAM / SINOGRAM (P): FLACA WEAVER [id number] -1950 M Exm Date: MAY 11, 2024@12:39 Req Phys: PALMIRA POWELL Loc: [facility] C/R FOLLOW-UP CLINIC (Req' Img Loc: INTERVENTIONAL RADIOLOGY Service: [place] [address] (Case [id number] COMPLETE) IR INJECTION FOR SINOGRAM DIAGNOS(ANI Detailed) CPT:16280 Contrast Media : Non-ionic Iodinated Reason for Study: s/p drain placement for diverticular abscess- assess for drain (Case [id number] COMPLETE) IR FISTULOGRAM OR SINOGRAM (ANI Detailed) CPT:26848 Contrast Media : unspecified contrast media (Case [id number] COMPLETE) IR DRAINAGE CATHETER SUPPLY (ANI Detailed) CPT:C1729 Clinical History: IS NOT under investigation for COVID-19 or is COVID-19 negative s/p drain placement for diverticular abscess- assess for drain removal Contact number for responsible provider who can be reached for any questions or notifications of critical findings: [phone] Palmira Powell MD LAST CREATININE 0.7 (05/04/24) Report Status: Verified Date Reported: MAY 11, 2024 Date Verified: MAY 11, 2024 Coding Validator E-Sig:/ES/AMINTA ESCALONA MD Report: PROCEDURES Abdominal drain [...] Interpreting Staff: AMINTA ESCALONA MD, INTERVENTIONAL RADIOLOGIST (Coding Validator) /AMINTA VELAZCO [facility] May 11, 2024 11:[address] (AP) ABDOMEN/PELVIS (P): FLACA WEAVER [id number] -1950 M Exm Date: MAY 11, 2024@11:40 Req Phys: PALMIRA POWELL Loc: [facility] C/R FOLLOW-UP CL[facility] (Req' Img Loc: CT IMAGING Service: [place] [address] (Case [id number] COMPLETE) CT (AP) ABDOMEN/PELVIS W CONTRAST(CT Detailed) CPT:37214 Contrast Media : Non-ionic Iodinated Reason for [...] any questions or notifications of critical findings: [phone] Palmira Powell MD LAST 3: Collection DT [...] .CREAT EGFR(CKD-E >90 Ref: >=60 Allergies: ([place] only) TERAZOSIN (Mar 13, 2015) Report Status: Verified Date Reported: MAY 11, 2024 Date Verified: MAY 11, 2024 Coding Validator E-Sig:/ES/LIAS PENDLETON MD Report: CT abdomen and pelvis [...] Primary Interpreting Staff: LISA PENDLETON MD, RADIOLOGIST (Coding Validator) /JRT LISA PENDLETON [facility] Apr 24, 2024 02:13 PM ABSCESS DRAIN PLACEMENT PERITONEAL (P): FLACA WEAVER [id number] -1950 M Exm Date: APR 24, 2024@14:13 Req Phys: TAURUS WOOD Loc: 04-24-2024@16:07 Img Loc: INTERVENTIONAL RADIOLOGY Service: PRIMARY [place] [address] (Case [id number] COMPLETE) IR PERITONEAL/RETROPERITONEAL PER(ANI Detailed) CPT:84971 Reason for Study: diverticular abscess Clinical History: [place] IS NOT under investigation for COVID-19 or is COVID-19 negative 73yo M with hx of recurrent diverticulitis, transferred from [facility] 04/[address] 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 Palmira Powell MD LAST CREATININE 0.7 (04/23/24) Report Status: Verified Date Reported: APR 24, 2024 Date Verified: APR 24, 2024 Coding Validator E-Sig:/ES/SADIA DEE MD Report: PROCEDURES: Placement of [...] Primary Interpreting Staff: SADIA DEE MD, RADIOLOGIST (Coding Validator) Primary Interpreting Resident: JEFFREY FLOWER MD, SERVICE DIRECTOR /SADIA SNYDER [facility] Apr 24, 2024 02:[address] NEEDLE PLACEMENT (P): FLACA WEAVER [id number] -1950 M Exm Date: APR 24, 2024@14:11 Req Phys: TAURUS WOOD Loc: 3KS04-24-2024@16:07 [facility] Loc: CT IMAGING Service: PRIMARY [place] [address] (Case [id number] COMPLETE) CT SCAN FOR NEEDLE PLACEMENT (CT Detailed) CPT:72685 Reason for Study: diverticular abscess Clinical History: Report Status: Verified Date Reported: APR 24, 2024 Date Verified: APR 24, 2024 Coding Validator E-Sig:/ES/SADIA DEE MD Report: PROCEDURES: Placement of [...] Primary Interpreting Staff: SADIA DEE MD, RADIOLOGIST (Coding Validator) Primary Interpreting Resident: JEFFREY FLOWER MD, SERVICE DIRECTOR /SADIA SNYDER [facility] Apr 23, 2024 06:[address] ABDOMEN/PELVIS: FLACA WEAVER [id number] -1950 M Exm Date: APR 23, 2024@06:36 Req Phys: MCKAY VICTOR Pat Loc: 3KS04-24-2024@10:25 [facility] Loc: OUTSOURCE CT Service: Unknown (Case [id number] COMPLETE) NON [place] CT ABDOMEN/PELVIS (CT Detailed) CPT:54249 Reason for Study: OUTSIDE STUDY Clinical History: [...] Reporting Lab: [facility] [CLIA# [id number]] [place] [address] Accession [UID]: [id number] [[id number]] Received: Apr 21, 2024@08:16 Collection sample: URINE Collection date: Apr 21, 2024 07:28 Provider: ANANDA HUGGINS Comment on specimen: RECEIVED IN STERILE CUP Test(s) ordered: CULTURE & SUSCEPTIBILITY...... completed: Apr 22, 2024 * BACTERIOLOGY FINAL REPORT => Apr 22, 2024 08:38 TECH CODE: [id number] CULTURE RESULTS: NO GROWTH 24 HOURS Bacteriology Remark(s): THIS REPORT IS FINAL =--=--=--=--=--=--=--=--=--=--=--=- -=--=--=--=--=--=--=--=--=--=--=--= --=--=-- Performing Laboratory: Bacteriology Report Performed By: [facility] [CLIA# [id number]] [address] [place] [address] [facility] Encounter Notes: All associated encounter notes This section contains the clinical notes associated to the Encounter. Date/Time Encounter Note(s) Provider Source May 07, 2024 06:04 AM ADMINISTRATIVE NOT E: LOCAL TITLE: PRE VISIT SUMMARY NOTE STANDARD TITLE: ADMINISTRATIVE NOTE DICT DATE: MAY 07, 2024@06:04:19 ENTRY DATE: MAY 07, 2024@06:04:19 DICTATED BY: BRITTNEY HARRISON COSIGNER: URGENCY: STATUS: COMPLETED INCLUDED IN THIS LIST: Alphabetical list of active outpatient prescriptions dispensed from this [place] (local) and dispensed from another [place] or [facility] facility (remote) as well as inpatient orders (local pending and active), local clinic medications, locally documented non-VA medications, and local prescriptions that have or been discontinued in the past 90 days. NOTE The display of VA prescriptions dispensed from another [place] or [facility] facility (remote) is limited to active outpatient prescription entries matched to National Drug File at the originating site and may not include some items such as investigational drugs, compounds, etc. MEDICATIONS Acetaminophen 325mg Tab TAKE TWO TABLETS BY MOUTH EVERY 6 HOURS NEEDED FOR PAIN Indication: PAIN Rx #: [id number] Pharmacy: [facility] Ordering Provider: JOSE RANDOLPH Status: ACTIVE Quantity: 300 for 38 days Refills Remainin Expires: Apr 27, 2025 Last Filled: Apr 26, 2024 Amoxicillin 875/Clav K 125mg Tab TAKE 1 TABLET BY MOUTH TWICE A DAY Indication: ABSCESS, COLOVESICULAR FISTULA Rx #: [id number] Pharmacy: [facility] Ordering Provider: JOSE RANDOLPH Status: ACTIVE Quantity: 20 for 10 days Refills Remainin Expires: May 26, 2024 Last Filled: Apr 26, 2024 Atorvastatin Calcium 40mg Tab TAKE ONE-HALF TABLET BY MOUTH AT BEDTIME FOR CHOLESTEROL Rx #: [id number] Pharmacy: [facility] Ordering Provider: JATINDER BENITEZ Status: ACTIVE Quantity: 45 for 90 days Refills Remainin Expires: Jul 15, 2024 Last Filled: Apr 03, 2024 Empagliflozin 25mg Tab TAKE ONE-HALF TABLET BY MOUTH EVERY DAY Rx #: [id number] Pharmacy: [facility] Ordering Provider: JATINDER BENITEZ Status: ACTIVE Quantity: 45 for 90 days Refills Remainin Expires: January 16, 2025 Last Filled: January 17, 2024 Furosemide 20mg Tab TAKE ONE TABLET BY MOUTH EVERY DAY NEEDED FOR EXCESS FLUID TAKE ONE TABLET FOR WEIGHT GAIN OF 3 POUNDS OVERNIGHT OR MORE THAN 5 POUNDS IN 1 WEEK OR LEG SWELLING Indication: FOR EXCESS FLUID Rx #: [id number] Pharmacy: [facility] Ordering Provider: JATINDER BENITEZ Status: DISCONTINUED Quantity: 90 for 90 days Refills Remainin Expires: January 16, 2025 Discontinued: Apr 26, 2024 Last Filled: Apr 06, 2024 Hctz 12.5/Lisinopril 10mg Tab TAKE ONE HALF TABLET BY MOUTH EVERY DAY FOR BLOOD PRESSURE Indication: FOR BLOOD PRESSURE Rx #: [id number] Pharmacy: [facility] Ordering Provider: JATINDER BENITEZ Status: DISCONTINUED Quantity: 45 for 90 days Refills Remainin Expires: Nov 21, 2024 Discontinued: Apr 26, 2024 Last Filled: January 13, 2024 Isosorbide Mononitrate 30mg Sa Tab TAKE ONE TABLET BY MOUTH EVERY DAY FOR CHEST PAIN Indication: FOR CHEST PAIN Rx #: [id number] Pharmacy: [facility] Ordering Provider: JATINDER BENITEZ Status: ACTIVE Quantity: 90 for 90 days Refills Remainin Expires: Dec 19, 2024 Last Filled: Mar 09, 2024 Nitroglycerin 0.4mg Sl Tab DISSOLVE ONE TABLET UNDER THE TONGUE THREE TIMES A DAY NEEDED CHEST PAIN FOR CHEST PAIN * MAY REPEAT EVERY 5 MINUTES--NO MORE THAN 3 TOTAL Indication: CHEST PAIN Rx #: [id number] Pharmacy: [facility] Ordering Provider: JATINDER BENITEZ Status: ACTIVE Quantity: 100 for 30 days Refills Remainin Expires: Nov 21, 2024 Last Filled: Nov 21, 2023 Perflutren Lipid 1.5ml/Ns 9ml Inj,Susp IVP ONCE INFUSE OVER 1 Minutes \Instructions too long. See order details for full text. Indication: LV OPACIFICATION Status: Quantity: 0 for 0 days Refills Remainin Discontinued: INFUSE OVER 1 Minutes Phenazopyridine Hcl 100mg Tab TAKE TWO TABLETS BY MOUTH THREE TIMES A DAY NEEDED FOR BLADDER PAIN Indication: BLADDER PAIN Rx #: [id number] Pharmacy: [facility] Ordering Provider: JOSE RANDOLPH Status: ACTIVE Quantity: 90 for 15 days Refills Remainin Expires: May 26, 2024 Last Filled: Apr 26, 2024 Psyllium Oral Pwd TAKE 2 TEASPOONSFUL BY MOUTH EVERY DAY FOR CONSTIPATION Indication: FOR CONSTIPATION Rx #: [id number] Pharmacy: [facility] Ordering Provider: JATINDER BENITEZ Status: ACTIVE Quantity: 1170 for 90 days Refills Remainin Expires: Jan 30, 2025 Last Filled: Jan 31, 2024 Spironolactone 25mg Tab TAKE ONE-HALF TABLET BY MOUTH EVERY DAY FOR BLOOD PRESSURE Indication: FOR BLOOD PRESSURE Rx #: [id number] Pharmacy: [facility] Ordering Provider: JATINDER BENITEZ Status: ACTIVE Quantity: 45 for 90 days Refills Remainin Expires: Jan 30, 2025 Last Filled: Feb 08, 2024 Non-VA Meds Last Documented On: FOR NURSING USE ONLY: [] NEWSPAPER EDITOR MANAGING review of medications completed completed: printed list is correct: PUT THIS SHEET IN RED DOG. [] NEWSPAPER EDITOR MANAGING review of medications completed: corrections made below: PUT THIS SHEET IN RED DOG [] NEWSPAPER EDITOR MANAGING review of medications not completed: GIVE THIS SHEET TO PATIENT TO REVIEW END OF NURSING USE SECTION SCANNED DOCUMENT SIGNATURE NOT REQUIRED Electronically Filed: 05/07/2024 by: BRITTNEY HARRISON [employer]ED [employer] ASSEMBLER BRITTNEY HARRISON [facility]
--- OUTSIDE RECORDS SUMMARY | 2024-07-16 07:26 | XMS_ITS | Encounter Summary ---
Author Name [facility] [place] Organization [facility] [place] Address [address] [place] [address] Care Team Providers Care Director Chemistry Name Role Phone JATINDER BENITEZ Primary Care [...] PART A Sep 29, 2016 PART A [id number] JUDY WEAVER PATIENT Selected Encounter This section includes the information on record at [place] for the Encounter. Date/Time Encounter Type Encounter Description Reason Pro vider Source May 28, 2024 08:37 AM Outpatient Encounter EVENT (HISTORICAL) IHE Encounter [...] Appointment Type Appointme nt Facility Name Jun 04, 2024 11:30 AM AM[place]ORY - NONE [place] [facility] Jun 08, 2024 11:00 AM AM[place] [facility] Jun 08, 2024 12:45 PM AMBULATORY - NONE [place] [facility] Jun 08, 2024 01:15 PM [place]IC[place] [facility] Jun 08, 2024 01:45 PM [place] [facility] Jun 21, 2024 04:48 PM [place]IC[place] [facility] Jun 21, 2024 05:45 PM AMBUL[place]ORY - NONE [place] [facility] Jun 27, 2024 07:00 AM AM[place]UL[place]ORY - NONE [place] [facility] Jun 27, 2024 07:30 AM [place] [facility] Jun 27, 2024 08:00 AM [place]IC[place] [facility] Jul 03, 2024 05:55 AM AMBUL[facility]ORY - NONE [place] [facility] [facility] Jul 13, 2024 08:15 AM [facility] Active, Pending, and Scheduled Orders This section includes a listing of several types of active, pending, and scheduled orders, including clinic medications orders, diagnostic test orders, procedure orders and consult orders; where the start date of the order is 45 days before the date of the Encounter or 45 days after the date of theEncounter. The data comes from all [facility] facilities. Test Date/Time Test Type [...] BLOOD SP [facility] Jun 08, 2024 09:57 AM Laboratory - Chemistry Order URINALYSIS URINE WC ONCE [facility] Jun 12, 2024 12:00 AM Laboratory - Chemistry Order BNP PLASMA SP ONCE [facility] Jun 21, 2024 05:45 PM Laboratory - Blood Bank Order TYPE & SCREEN - LAB BLOOD [facility] Jul 03, 2024 12:00 AM Laboratory - Blood Bank Order TYPE & SCREEN - LAB BLOOD [facility] Lab Results: +/- 30 days [...] - Unit Interpretation Reference Range Comment Jun 24, 2024 09:50 AM [facility] BASIC METABOLIC PANEL+MG Specimen Type: PLASMA Comment: Specimen received in Lab at: 0948 Ordering Provider: JEVON ZAZUETA Report Released Date/Time: Jun 23, 2024 06:07 PM Reporting Lab: [facility] [address] Performing Lab: [facility] [address] CREATININE 0.8 mg/dL 0.7-1.2 UREA NITROGEN 13 mg/dL 8-26 GLUCOSE 135 mg/dL H 70-100 SODIUM 135 mmol/L L 136-145 POTASSIUM 3.6 mmol/L 3.5-5.1 CHLORIDE 103 mmol/L 98-107 CO2 24 mmol/L 22-29 CALCIUM 9.2 mg/dL 8.4-10.2 MAGNESIUM 1.9 mg/dL 1.6-2.6 ANION GAP 8 mmol/L 5-15 .CREAT EGFR(CKD-EPI) >90 >60 Jun 24, 2024 09:50 AM [facility] CBC Specimen Type: BLOOD Comment: Specimen received in Lab at: 0948 Ordering Provider: JEVON ZAZUETA Report Released Date/Time: Jun 23, 2024 06:07 PM Reporting Lab: [facility] [address] Performing Lab: [facility] [address] WBC 15.5 H 4.0-11.0 RBC 4.93 4.60-6.20 HGB 15.2 g/dL 13.5-17.9 HCT 46.5 41.0-54.0 MCV 94.3 fL 80.0-100.0 MCH 30.8 pg 27.0-33.0 MCHC 32.7 g/dL 32.0-37.5 PLT 223 150-400 MPV 11.4 fL 9.1-13.0 RDW 13.9 11.5-14.5 Jun 23, 2024 07:52 AM [facility] COMPREHENSIVE METABOLIC PANEL+MG Specimen Type: PLASMA No comment entered. Ordering Provider: JEVON ZAZUETA Report Released Date/Time: Jun 22, 2024 05:51 PM Reporting Lab: [facility] [address] Performing Lab: [facility] [address] CREATININE 0.7 mg/dL 0.7-1.2 UREA NITROGEN 16 [...] >90 >60 Jun 23, 2024 07:52 AM [facility] CBC & DIFF Specimen Type: BLOOD Comment: Automated Differential Performed Ordering Provider: JEVON ZAZUETA Report Released Date/Time: Jun 22, 2024 05:51 PM Reporting Lab: [facility] [address] Performing Lab: [facility] [address] WBC 14.9 H 4.0-11.0 RBC 5.09 4.60-6.20 [...] 0.1 0.0-0.1 Jun 22, 2024 06:10 PM [facility] CBC Specimen Type: BLOOD No comment entered. Ordering Provider: JEVON ZAZUETA Report Released Date/Time: Jun 22, 2024 05:51 PM Reporting Lab: [facility] [address] Performing Lab: [facility] [address] WBC 16.9 H 4.0-11.0 RBC 5.28 4.60-6.20 HGB 16.9 g/dL 13.5-17.9 HCT 50.4 41.0-54.0 MCV 95.5 fL 80.0-100.0 MCH 32.0 pg 27.0-33.0 MCHC 33.5 g/dL 32.0-37.5 PLT 223 150-400 MPV 10.9 fL 9.1-13.0 RDW 14.0 11.5-14.5 Jun 22, 2024 06:10 PM [facility] COMPREHENSIVE METABOLIC PANEL+MG Specimen Type: PLASMA No comment entered. Ordering Provider: JEVON ZAZUETA Report Released Date/Time: Jun 22, 2024 05:51 PM Reporting Lab: [facility] [address] Performing Lab: [facility] [address] CREATININE 0.7 mg/dL 0.7-1.2 UREA NITROGEN 17 [...] >90 >60 Jun 21, 2024 06:48 PM [facility] URINALYSIS Specimen Type: URINE No comment entered. Ordering Provider: DELIA MARTINEZ Report Released Date/Time: Jun 21, 2024 05:45 PM Reporting Lab: [facility] [address] Performing Lab: [facility] [address] URINE COLOR YELLOW SPECIFIC GRAVITY 1.041 H [...] 500 NEGATIVE Jun 21, 2024 05:34 PM [facility] POC CREATININE Specimen Type: BLOOD No comment entered. Ordering Provider: DELIA MARTINEZ Report Released Date/Time: Jun 21, 2024 06:07 PM Reporting Lab: [facility] [address] Performing Lab: [facility] [address] POC CREATININE 1.1 mg/dL 0.6-1.3 Jun 21, 2024 05:30 PM [facility] POC ABG/LACTATE Specimen Type: VENOUS BLOOD No comment entered. Ordering Provider: DELIA MARTINEZ Report Released Date/Time: Jun 21, 2024 06:07 PM Reporting Lab: [facility] [address] Performing Lab: [facility] [address] POC PH 7.470 H 7.31-7.41 POC PCO2 31.2 mm[Hg] L 41.00-51 .0 0 POC PO2 46 mm[Hg] H 35.0-40.0 POC TCO2 24 mmol/L 24.0-29.0 POC HCO3 22.7 mmol/L L 23.0-28.0 POC BE ECT -1 mmol/L POC SO2 85 H 70-75 POC LACTATE 1.85 mmol/L 0.90-1.70 Jun 21, 2024 05:24 PM [facility] PROTHROMBIN TIME/INR Specimen Type: PLASMA No comment entered. Ordering Provider: DELIA MARTINEZ Report Released Date/Time: Jun 21, 2024 05:30 PM Reporting Lab: [facility] [address] Performing Lab: [facility] [address] .INR 1.2 H 0.8-1.1 .PT 13.9 s H 9.4-12.5 Jun 21, 2024 05:24 PM [facility] EXTRA GOLD GEL TUBE Specimen Type: SERUM No comment entered. Ordering Provider: DELIA MARTINEZ Report Released Date/Time: Jun 21, 2024 05:41 PM Reporting Lab: [facility] [address] Performing Lab: [facility] [address] EXTRA GOLD GEL TUBE RECEIVED Jun 21, 2024 05:24 PM [facility] LIPASE Specimen Type: PLASMA No comment entered. Ordering Provider: DELIA MARTINEZ Report Released Date/Time: Jun 21, 2024 05:30 PM Reporting Lab: [facility] [address] Performing Lab: [facility] [address] LIPASE 32 U/L <60 Jun 21, 2024 05:24 PM [facility] COMPREHENSIVE METABOLIC PANEL+MG Specimen Type: PLASMA No comment entered. Ordering Provider: DELIA MARTINEZ Report Released Date/Time: Jun 21, 2024 05:30 PM Reporting Lab: [facility] [address] Performing Lab: [facility] [address] CREATININE 0.9 mg/dL 0.7-1.2 UREA NITROGEN 29 [...] mg/dL <0.5 Jun 21, 2024 05:24 PM [facility] CBC & DIFF Specimen Type: BLOOD Comment: Manual Differential Performed Ordering Provider: DELIA MARTINEZ Report Released Date/Time: Jun 21, 2024 05:30 PM Reporting Lab: [facility] [address] Performing Lab: [facility] [address] WBC 21.3 H 4.0-11.0 RBC 5.48 4.60-6.20 [...] MORPHOLOGY PRESENT Jun 08, 2024 10:59 AM [facility] PROTHROMBIN TIME/INR Specimen Type: PLASMA No comment entered. Ordering Provider: PALMIRA POWELL Report Released Date/Time: May 28, 2024 09:02 AM Reporting Lab: [facility] [address] Performing Lab: [facility] [address] .INR 1.0 0.8-1.1 .PT 11.8 s 9.4-12.5 Jun 08, 2024 10:59 AM [facility] HEMOGLOBIN A1C Specimen Type: BLOOD Comment: Values [...] May 28, 2024 09:02 AM Reporting Lab: [facility] [address] Performing Lab: [facility] [address] HEMOGLOBIN A1C 4.9 4.0-6.0 Jun 08, 2024 10:59 AM [facility] CBC Specimen Type: BLOOD No comment entered. Ordering Provider: PALMIRA POWELL Report Released Date/Time: May 28, 2024 09:02 AM Reporting Lab: [facility] [address] Performing Lab: [facility] [address] WBC 16.1 H 4.0-11.0 RBC 5.02 4.60-6.20 HGB 16.0 g/dL 13.5-17.9 HCT 47.1 41.0-54.0 MCV 93.8 fL 80.0-100.0 MCH 31.9 pg 27.0-33.0 MCHC 34.0 g/dL 32.0-37.5 PLT 228 150-400 MPV 10.3 fL 9.1-13.0 RDW 14.6 H 11.5-14.5 Jun 08, 2024 10:59 AM [facility] BASIC METABOLIC PANEL+MG Specimen Type: PLASMA No comment entered. Ordering Provider: PALMIRA POWELL Report Released Date/Time: May 28, 2024 09:02 AM Reporting Lab: [facility] [address] Performing Lab: [facility] [address] CREATININE 0.9 mg/dL 0.7-1.2 UREA NITROGEN 15 mg/dL 8-26 GLUCOSE 93 mg/dL 70-100 SODIUM 139 mmol/L 136-145 POTASSIUM 3.7 mmol/L 3.5-5.1 CHLORIDE 106 mmol/L 98-107 CO2 25 mmol/L 22-29 CALCIUM 9.8 mg/dL 8.4-10.2 MAGNESIUM 2.1 mg/dL 1.6-2.6 ANION GAP 8 mmol/L 5-15 .CREAT EGFR(CKD-EPI) >90 >60 May 21, 2024 06:59 AM [facility] BASIC METABOLIC PANEL+MG Specimen Type: PLASMA No comment entered. Ordering Provider: GOLDIE BENITEZ Report Released Date/Time: May 15, 2024 08:34 AM Reporting Lab: [facility] [address] Performing Lab: [facility] [address] CREATININE 0.9 mg/dL 0.7-1.2 UREA NITROGEN 18 [...] PM Reporting Lab: [facility] [address] Performing Lab: [facility] [address] CREATININE 0.7 mg/dL 0.7-1.2 UREA NITROGEN 13 mg/dL 8-26 GLUCOSE 91 mg/dL 70-100 SODIUM 141 mmol/L 136-145 POTASSIUM 3.6 mmol/L 3.5-5.1 CHLORIDE 109 mmol/L H 98-107 CO2 25 mmol/L 22-29 CALCIUM 8.9 mg/dL 8.4-10.2 MAGNESIUM 2.0 mg/dL 1.6-2.6 ANION GAP 7 mmol/L 5-15 .CREAT EGFR(CKD-EPI) >90 >60 Vital Signs: All taken on the encounter date This section contains inpatient and outpatient Vital Signs collected on the date of the Encounter. Date/Time Temperature Pulse Blood Pressure Respiratory Rate SP02 Pain Height Weight Body Mass Index Source May 28, 2024 08:09 AM 97.4 42 119/58 98 0 [place] [facility] Social History: Smoking Status (Most [...] 15, 2024 08:30 AM VA[facility]ACCO [facility] OR MORE [facility] May 06, 2023 11:30 AM VA-TOBACCO FORMER USER [facility] May 06, 2023 11:30 AM VA-TOBACCO QUIT [...] this document. The data comes from all [facility]. Date Advance Directives Provider Source Mar 23, 2016 CLINICAL WARNING [facility] Radiology Reports: +/- 30 days [...] treatment facilities. Date/Time Radiology Report Provider Source Jun 22, 2024 11:49 AM ABSCESS DRAIN PLACEMENT PERITONEAL (P): FLACA WEAVER [id number] -1950 M Exm Date: JUN 22, 2024@11:49 Req Phys: ANGELA HOLDEN [facility] Loc: [facility]06-22-2024@17:14 Img Loc: INTERVENTIONAL RADIOLOGY Service: [facility] [place] [address] (Case [id number] COMPLETE) IR PERITONEAL/RETROPERITONEAL PER(ANI Detailed) CPT:59766 Reason for Study: diverticulitis with abscess (Case [id number] COMPLETE) IR MOD SEDATION 10-22 MIN (ANI Detailed) CPT:06608 Clinical History: [place] IS NOT under investigation for COVID-19 or is COVID-19 negative 73 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 please place abscess drain. Contact number for responsible provider who can be reached for any questions or notifications of critical findings: [phone] n/a LAST CREATININE 0.9 (06/21/24) Report Status: Verified Date Reported: JUN 22, 2024 Date Verified: JUN 22, 2024 Stoner Out E-Sig:/ES/LISA PENDLETON MD Report: PROCEDURES: Placement of [...] obtained. A pre-procedural Time-Out was performed per [facility] policy. The patient was placed in the supine position on the CT table. Preprocedural scan performed. The suprapubic region/lower abdominal wall was sterilely prepped and draped in the usual fashion.1% lidocaine without epinephrine was used for local anesthesia. Using real-time CT fluoroscopy, a 5 Cuban eelusionesis catheter was advanced into the collection in the left pelvis. A wire was coiled in the collection. The tract into the collection was dilated to accommodate the 12 Cuban locking pigtail drainage catheter. There was return of 20 cc of grossly purulent. . A sample was sent to the Lab for culture. The catheter was secured to the skin with monofilament suture and connected to JAUN bulb suction. Limited postprocedural scan demonstrated no immediate complication. Impression: CT-guided left pelvic abscess drain placement. This drain should remain in place until surgical sigmoid resection on 07/03/2024. Primary Interpreting Staff: LISA PENDLETON MD, RADIOLOGIST ([place]) /JRT LISA PENDLETON [facility] Jun 22, 2024 11:[address] NEEDLE PLACEMENT (P): FLACA WEAVER [id number] -1950 M Exm Date: JUN 22, 2024@11:48 Req Phys: ANGELA HOLDEN [facility] Loc: [facility]/06-22-2024@17:14 Img Loc: CT IMAGING Service: [facility] [place] [address] (Case [id number] COMPLETE) CT SCAN FOR NEEDLE PLACEMENT (CT Detailed) CPT:41250 Reason for Study: l pelvic abscess drain Clinical History: Report Status: Verified Date Reported: JUN 22, 2024 Date Verified: JUN 22, 2024 Stoner Out E-Sig:/ES/LISA PENDLETON MD Report: PROCEDURES: Placement of [...] obtained. A pre-procedural Time-Out was performed per [facility] policy. The patient was placed in the supine position on the CT table. Preprocedural scan performed. The suprapubic region/lower abdominal wall was sterilely prepped and draped in the usual fashion.1% lidocaine without epinephrine was used for local anesthesia. Using real-time CT fluoroscopy, a 5 Cuban eelusionesis catheter was advanced into the collection in the left pelvis. A wire was coiled in the collection. The tract into the collection was dilated to accommodate the 12 Cuban locking pigtail drainage catheter. There was return [...] Primary Interpreting Staff: LISA PENDLETON MD, RADIOLOGIST (Stoner Out) /JRT LISA PENDLETON [facility] Jun 21, 2024 06:[address] (AP) ABDOMEN/PELVIS (P): FLACA WEAVER [id number] -1950 M Exm Date: JUN 21, 2024@18:09 Req Phys: DELIA MARTINEZ Loc: [facility] [[email or web address] EMERGENCY DEPT WALK-IN (Re Img Loc: CT IMAGING Service: [place] [address] (Case [id number] COMPLETE) CT (AP) ABDOMEN/PELVIS W CONTRAST(CT Detailed) CPT:29156 Contrast Media : Non-ionic Iodinated Reason for [...] Allergies: ([place] only) TERAZOSIN (Mar 13, 2015) Defer to [...] 21, 2024 Date Verified: JUN 21, 2024 Stoner Out E-Sig:/WYATT/CARLOS A CUNNINGHAM DO Report: EXAMINATION: CT (AP) [...] Interpreting Staff: CARLOS A CUNNINGHAM DO, RADIOLOGIST (Stoner Out) /CARLOS A ROWELL [facility] May 25, 2024 09:00 AM IR FISTULOGRAM OR SINOGRAM : FLACA WEAVER [id number] -1950 M Ex Date: MAY 25, 2024@09:00 Req Phys: AMINTA ESCALONA Loc: [facility] INTERVENTIONAL RADIO Img Loc: INTERVENTIONAL RADIOLOGY Service: [place] [address] (Case [id number] COMPLETE) IR FISTULOGRAM OR SINOGRAM (ANI Detailed) CPT:03003 Contrast Media : unspecified contrast media Reason [...] 25, 2024 Date Verified: MAY 25, 2024 Stoner Out E-Sig:/ES/DAVID BURNS MD Report: PROCEDURES 05/25/2024 9:48 [...] Primary Interpreting Staff: DAVID BURNS MD, RADIOLOGIST (Stoner Out) /CSS DAVID BURNS [facility] May 25, 2024 08:[address] (AP) ABDOMEN/PELVIS (P): FLACA WEAVER [id number] -1950 M Exm Date: MAY 25, 2024@08:23 Req Phys: DAVID BURNS Pat Loc: [facility]IO Img Loc: CT IMAGING Service: [place] [address] (Case [id number] COMPLETE) CT (AP) ABDOMEN/PELVIS W/O CONTRA(CT Detailed) CPT:43907 Reason for Study: assess abscess and possible [...] 25, 2024 Date Verified: MAY 25, 2024 Stoner Out E-Sig:/ES/JESSENIA GOODMAN MD Report: EXAM: CT abdomen and pelvis without intravenous contrast. 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 TECHNIQUE: Helical acquisition of image data was performed for the abdomen and pelvis without intravenous contrast. Dose: 512.57 mGy*cm COMPARISON: CT abdomen pelvis with contrast 05/11/[address] abdomen pelvis 04/23/2024.; CT abdomen pelvis 05/05/2020 FINDINGS: FURNITURE MANAGER: Pigtail catheter projecting over the left hemipelvis [...] Primary Interpreting Staff: JESSENIA GOODMAN MD, RADIOLOGIST (Stoner Out) Primary Interpreting Resident: YOHANNES MELO DO, ADVERTISING SOLICITOR /CMN JESSENIA GOODMAN [facility] May 11, 2024 12:39 PM IR FISTULOGRAM / SINOGRAM (P): FLACA WEAVER [id number] -1950 M Exm Date: MAY 11, 2024@12:39 Req Phys: PALMIRA POWELL Loc: [facility] [[email or web address]] C/R FOLLOW-UP CLINIC (Req' Img Loc: INTERVENTIONAL RADIOLOGY Service: [place] [address] (Case [id number] COMPLETE) IR INJECTION FOR SINOGRAM DIAGNOS(ANI Detailed) CPT:18749 Contrast Media : Non-ionic Iodinated Reason for Study: s/p drain placement for diverticular abscess- assess for drain (Case 3772 COMPLETE) IR FISTULOGRAM OR SINOGRAM (ANI Detailed) CPT:44512 Contrast Media : unspecified contrast media (Case 3773 COMPLETE) IR DRAINAGE CATHETER SUPPLY (ANI Detailed) CPT:C1729 Clinical History: [place] IS NOT under investigation for COVID-19 or is COVID-19 negative s/p drain placement for diverticular abscess- assess for drain removal Contact number for responsible provider who can be reached for any questions or notifications of critical findings: [phone] Palmira Powell MD LAST CREATININE 0.7 (05/04/24) Report Status: Verified Date Reported: MAY 11, 2024 Date Verified: MAY 11, 2024 Stoner Out E-Sig:/ES/AMINTA ESCALONA MD Report: PROCEDURES Abdominal drain [...] Interpreting Staff: AMINTA ESCALONA MD, INTERVENTIONAL RADIOLOGIST (Stoner Out) /AMITNA VELAZCO [facility] May 11, 2024 11:[address] (AP) ABDOMEN/PELVIS (P): FLACA WEAVER [id number] -1950 M Exm Date: MAY 11, 2024@11:40 Req Phys: PALMIRA POWELL Loc: [facility] [[email or web address]] C/R FOLLOW-UP CLINIC (Req' Img Loc: CT IMAGING Service: [place] [address] (Case [id number] COMPLETE) CT (AP) ABDOMEN/PELVIS W CONTRAST(CT Detailed) CPT:67195 Contrast Media : Non-ionic Iodinated Reason for [...] any questions or notifications of critical findings: [phone] Palmira Powell MD LAST 3: Collection DT [...] 11, 2024 Date Verified: MAY 11, 2024 Stoner Out E-Sig:/ES/LISA PENDLETON MD Report: CT abdomen and [...] Primary Interpreting Staff: LISA PENDLETON MD, RADIOLOGIST (Stoner Out) /LISA CARDONA [facility] Pathology Reports: [...] facilities. Date/Time Pathology Report Provider Source Jun 22, 2024 01:15 PM LR MICROBIOLOGY RE PORT: Reporting Lab: [facility] [CLIA# [id number]] [place] [address] Accession [UID]: [id number] [[id number]] Received: Jun 22, 2024@13:38 Collection sample: FLUID Collection date: Jun 22, 2024 13:15 Provider: ANGELA HOLDEN Comment on specimen: LLQ ABSCESS, RECEIVED IN ANAEROBIC TRANSPORT VIAL Test(s) ordered: GRAM STAIN.................... completed: Jun 22, 2024 15:03 CULTURE & SUSCEPTIBILITY...... completed: Jun 25, 2024 * BACTERIOLOGY FINAL REPORT => Jun 25, 2024 10:56 TECH CODE: [id number] GRAM STAIN: DIRECT SMEAR of specimen before [...] COLI : 3. ENTEROCOCCUS FAECALIS : : AMPICILLIN.................... S AMP/SULBACT................... I PIP-TAZO...................... S CEFTAZIDIME................... S CEFTRIAXONE................... S IMIPENEM...................... S ERTAPENEM..................... S GENTAMICIN.................... S CIPROFLOXACIN................. S TRIMETH/SULFA................. S VANCOMYCIN.................... S Bacteriology Remark(s): THIS REPORT IS FINAL =--=--=--=--=--=--=--=--=--=--=--=- -=--=--=--=--=--=--=--=--=--=--=--= --=--=-- Performing Laboratory: Bacteriology Report Performed By: [facility] [CLIA# [id number]] [place] [address] [facility] Jun 22, 2024 01:15 PM LR MICROBIOLOGY RE PORT: Reporting Lab: [facility] [CLIA# [id number]] [place] [address] Accession [UID]: [id number] [[id number]] Received: Jun 22, 2024@13:38 Collection sample: FLUID Collection date: Jun 22, 2024 13:15 Provider: ANGELA HOLDEN Comment on specimen: LLQ ABSCESS, RECEIVED IN ANAEROBIC TRANSPORT VIAL Test(s) ordered: ANAEROBIC CULTURE............. completed: Jun 28, 2024 * BACTERIOLOGY FINAL REPORT => Jun 28, 2024 10:08 TECH CODE: [id number] CULTURE RESULTS: HEAVY GROWTH MIXED ANAEROBES Comment: including the followin+ Bacteroides fragilis 4+ Bacteroides vulgatus 4+ Clostridium innocuum Beta-lactamase negative 4+ Bacteroides caccae 4+ Parvimonas micra 4+ Bacteroides uniformis 4+ Gemella morbillorum 4+ anaerobic small, Gram Positive Rods 4+ Bacteroides thetaiotaomicron Standard workup is now complete. Bacteriology Remark(s): THIS REPORT IS FINAL =--=--=--=--=--=--=--=--=--=--=--=- -=--=--=--=--=--=--=--=--=--=--=--= --=--=-- Performing Laboratory: Bacteriology Report Performed By: [facility] [CLIA# [id number]] [place] [address] [facility] Jun 21, 2024 06:12 PM LR MICROBIOLOGY RE PORT: Reporting Lab: [facility] [CLIA# [id number]] [place] [address] Accession [UID]: [id number] [[id number]] Received: Jun 21, 2024@18:12 Collection sample: BLOOD Collection date: Jun 21, 2024 18:12 Provider: DELIA MARTINEZ Comment on specimen: LAC, RECEIVED 2 BLOOD CULTURE BOTTLES Test(s) ordered: CULTURE & SUSCEPTIBILITY...... completed: Jun 27, 2024 * BACTERIOLOGY FINAL REPORT => Jun 27, 2024 14:14 TECH CODE: 2196 CULTURE RESULTS: NO GROWTH 5 DAYS Bacteriology Remark(s): THIS REPORT IS FINAL =--=--=--=--=--=--=--=--=--=--=--=- -=--=--=--=--=--=--=--=--=--=--=--= --=--=-- Performing Laboratory: Bacteriology Report Performed By: [facility] [CLIA# [id number]] [place] [address] [facility] Jun 21, 2024 06:11 PM LR MICROBIOLOGY RE PORT: Reporting Lab: [facility] [IA# [id number]] [place] [address] Accession [UID]: [id number] [[id number]] Received: Jun 21, 2024@18:11 Collection sample: BLOOD Collection date: Jun 21, 2024 18:11 Provider: DELIA MARTINEZ Comment on specimen: RAC, RECEIVED 2 BLOOD CULTURE BOTTLES Test(s) ordered: CULTURE & SUSCEPTIBILITY...... completed: Jun 27, 2024 * BACTERIOLOGY FINAL REPORT => Jun 27, 2024 14:14 TECH CODE: 2196 CULTURE RESULTS: NO GROWTH 5 DAYS Bacteriology Remark(s): THIS REPORT IS FINAL =--=--=--=--=--=--=--=--=--=--=--=- -=--=--=--=--=--=--=--=--=--=--=--= --=--=-- Performing Laboratory: Bacteriology Report Performed By: [facility] [CLIA# [id number]] [place] [address] [facility] Jun 08, 2024 11:00 AM LR MICROBIOLOGY RE PORT: Reporting Lab: [facility] [CLIA# [id number]] [place] [address] Accession [UID]: [id number] [[id number]] Received: Jun 08, 2024@11:00 Collection sample: URINE Collection date: Jun 08, 2024 11:00 Provider: PALMIRA POWELL Comment on specimen: urine Test(s) ordered: CULTURE & SUSCEPTIBILITY...... completed: Jun 09, 2024 * BACTERIOLOGY FINAL REPORT => Jun 09, 2024 19:12 TECH CODE: [id number] CULTURE RESULTS: ESCHERICHIA COLI - Quantity: >100,000 [...] By: [facility] [CLIA# [id number]] [place] [address] [facility]
--- OUTSIDE RECORDS SUMMARY | 2024-07-16 07:26 | XMS_ITS | Encounter Summary ---
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 Date/Time Encounter Type Encounter Description Reason Provider Source May 28, 2024 08:15 AM OFFICE O/P EST LOW 20 MIN GENERAL SURGERY ICD-10-CM K57.20 Dvtrcli of lg int w perforation and abscess w/o bleeding PALMIRA POWELL Encounter Template Text not used by [place] Assessments - Encounter Diagnoses This section includes the primary and secondary diagnoses documented for the Encounter. Date/Time Primary/Secondary Diagnosis Diagnosis Name Provider Source May 28, 2024 08:43 AM PRIMARY Dvtrcli of lg int w perforation and abscess w/o bleeding PALMIRA POWELL [facility] Plan of Treatment: Future Appointments (+ 6 months) and Future Tests (+/- 45 days) The Plan of Treatment section includes future care activities for the patient [facility] [place] [facility] This section includes future appointments and future orders which are active, pending or scheduled. Future Appointments This section includes appointments that were scheduled to occur 6 months from the date of the Encounter, up to a maximum of 20 appointments. The data comes from all [facility]. Appointment Date/Time Appointment Type Appointme nt Facility Name Jun 04, 2024 11:30 AM [facility] Jun 08, 2024 11:00 AM AMBULATORY - SURGERY [facility] Jun 08, 2024 12:45 PM [facility] Jun 08, 2024 01:15 PM [facility] - [facility]ICINE [facility] Jun 08, 2024 01:45 PM AMBULATORY - SURGERY [facility] Jun 21, 2024 04:48 PM [facility] Jun 21, 2024 05:45 PM AMBULATORY - NONE [facility] Jun 27, 2024 07:00 AM [facility] Jun 27, 2024 07:30 AM [facility] Jun 27, 2024 08:00 AM [facility] Jul 03, 2024 05:55 AM [facility] Jul 13, 2024 08:15 AM AMBULATORY - NONE [facility] Active, Pending, [...] of theEncounter. The data comes from all [facility]. Test Date/Time Test Type Test Details Facility Name Apr 26, 2024 10:10 AM Laboratory - Microbiology Order CULTURE & SUSCEPTIBILITY WOUND OTHER WC ONCE ~For Test: CULTURE & SUSCEPTIBILITY ~Culture sample from JUAN drain output [facility] Apr 26, 2024 10:10 AM Laboratory - Microbiology Order GRAM STAIN WOUND OTHER WC ONCE ~For Test: GRAM STAIN ~JUAN drain culture/gram stain [facility] May 28, 2024 12:00 AM Laboratory - Blood Bank Order TYPE & SCREEN - LAB BLOOD SP [facility] Jun 08, 2024 09:57 AM Laboratory - Chemistry Order URINALYSIS URINE WC ONCE [facility] Jun 12, 2024 12:00 AM Laboratory - Chemistry Order BNP PLASMA SP ONCE [facility] Jun 21, 2024 05:45 PM Laboratory - Blood Bank Order TYPE & SCREEN - LAB BLOOD WC [facility] Jul 03, 2024 12:00 AM Laboratory - Blood Bank Order TYPE & SCREEN - LAB BLOOD WC [facility] Lab Results: +/- 30 days [...] Range Comment Jun 24, 2024 09:50 AM [facility] BASIC METABOLIC PANEL+MG Specimen Type: PLASMA Comment: Specimen received in Lab at: [id number] Ordering Provider: JEVON ZAZUETA Report Released Date/Time: Jun 23, 2024 06:07 PM Reporting Lab: [facility] [address] Performing Lab: [facility] [address] CREATININE 0.8 mg/dL 0.7-1.2 UREA NITROGEN 13 [...] Jun 23, 2024 06:07 PM Reporting Lab: [facility] [address] Performing Lab: [facility] [address] WBC 15.5 H 4.0-11.0 RBC 4.93 4.60-6.20 [...] Jun 22, 2024 05:51 PM Reporting Lab: [facility] [address] Performing Lab: [facility] [address] CREATININE 0.7 mg/dL 0.7-1.2 UREA NITROGEN 16 [...] Jun 22, 2024 05:51 PM Reporting Lab: [facility] [address] Performing Lab: [facility] [address] WBC 14.9 H 4.0-11.0 RBC 5.09 4.60-6.20 [...] Jun 22, 2024 05:51 PM Reporting Lab: [facility] [address] Performing Lab: [facility] [address] CREATININE 0.7 mg/dL 0.7-1.2 UREA NITROGEN 17 [...] >90 >60 Jun 22, 2024 06:10 PM [facility] CBC Specimen Type: BLOOD No comment entered. Ordering Provider: JEVON ZAZUETA Report Released Date/Time: Jun 22, 2024 05:51 PM Reporting Lab: [facility] [address] Performing Lab: [facility] [address] WBC 16.9 H 4.0-11.0 RBC 5.28 4.60-6.20 HGB 16.9 g/dL 13.5-17.9 HCT 50.4 41.0-54.0 MCV 95.5 fL 80.0-100.0 MCH 32.0 pg 27.0-33.0 MCHC 33.5 g/dL 32.0-37.5 PLT 223 150-400 MPV 10.9 fL 9.1-13.0 RDW 14.0 11.5-14.5 Jun 21, 2024 06:48 PM [facility] URINALYSIS Specimen Type: URINE No comment entered. Ordering Provider: DELIA MARTINEZ Report Released Date/Time: Jun 21, 2024 05:45 PM Reporting Lab: [facility] [address] Performing Lab: [facility] [address] URINE COLOR YELLOW SPECIFIC GRAVITY 1.041 H [...] Jun 21, 2024 06:07 PM Reporting Lab: [facility] [address] Performing Lab: [facility] [address] POC CREATININE 1.1 mg/dL 0.6-1.3 Jun 21, 2024 05:30 PM [facility] POC ABG/LACTATE Specimen Type: VENOUS BLOOD No comment entered. Ordering Provider: DELIA MARTINEZ Report Released Date/Time: Jun 21, 2024 06:07 PM Reporting Lab: [facility] [address] Performing Lab: [facility] [address] POC PH 7.470 H 7.31-7.41 POC PCO2 [...] Jun 21, 2024 05:30 PM Reporting Lab: [facility] [address] Performing Lab: [facility] [address] .INR 1.2 H 0.8-1.1 .PT 13.9 s H 9.4-12.5 Jun 21, 2024 05:24 PM [facility] LIPASE Specimen Type: PLASMA No comment entered. Ordering Provider: DELIA MARTINEZ Report Released Date/Time: Jun 21, 2024 05:30 PM Reporting Lab: [facility] [address] Performing Lab: [facility] [address] LIPASE 32 U/L <60 Jun 21, 2024 05:24 PM [facility] EXTRA GOLD GEL TUBE Specimen Type: SERUM No comment entered. Ordering Provider: DELIA MARTINEZ Report Released Date/Time: Jun 21, 2024 05:41 PM Reporting Lab: [facility] [address] Performing Lab: [facility] [address] EXTRA GOLD GEL TUBE RECEIVED Jun 21, 2024 05:24 PM [facility] CBC & DIFF Specimen Type: BLOOD Comment: Manual Differential Performed Ordering Provider: DELIA MARTINEZ Report Released Date/Time: Jun 21, 2024 05:30 PM Reporting Lab: [facility] [address] Performing Lab: [facility] [address] WBC 21.3 H 4.0-11.0 RBC 5.48 4.60-6.20 [...] MORPHOLOGY PRESENT Jun 21, 2024 05:24 PM [facility] COMPREHENSIVE METABOLIC PANEL+MG Specimen Type: PLASMA No comment entered. Ordering Provider: DELIA MARTINEZ Report Released Date/Time: Jun 21, 2024 05:30 PM Reporting Lab: [facility] [address] Performing Lab: [facility] [address] CREATININE 0.9 mg/dL 0.7-1.2 UREA NITROGEN 29 [...] >60 DIR. BILIRUBIN 0.5 mg/dL <0.5 Jun 08, 2024 10:59 AM [facility] PROTHROMBIN TIME/INR Specimen Type: PLASMA No comment entered. Ordering Provider: PALMIRA POWELL Report Released Date/Time: May 28, 2024 09:02 AM Reporting Lab: [facility] [address] Performing Lab: [facility] [address] .INR 1.0 0.8-1.1 .PT 11.8 s 9.4-12.5 Jun 08, 2024 10:59 AM [facility] CBC Specimen Type: BLOOD No comment entered. Ordering Provider: PALMIRA POWELL Report Released Date/Time: May 28, 2024 09:02 AM Reporting Lab: [facility] [address] Performing Lab: [facility] [address] WBC 16.1 H 4.0-11.0 RBC 5.02 4.60-6.20 [...] May 28, 2024 09:02 AM Reporting Lab: [facility] [address] Performing Lab: [facility] [address] HEMOGLOBIN A1C 4.9 4.0-6.0 Jun 08, 2024 10:59 AM [facility] BASIC METABOLIC PANEL+MG Specimen Type: PLASMA No comment entered. Ordering Provider: PALMIRA POWELL Report Released Date/Time: May 28, 2024 09:02 AM Reporting Lab: [facility] [address] Performing Lab: [facility] [address] CREATININE 0.9 mg/dL 0.7-1.2 UREA NITROGEN 15 mg/dL 8-26 GLUCOSE 93 mg/dL 70-100 SODIUM 139 mmol/L 136-145 POTASSIUM 3.7 mmol/L 3.5-5.1 CHLORIDE 106 mmol/L 98-107 CO2 25 mmol/L 22-29 CALCIUM 9.8 mg/dL 8.4-10.2 MAGNESIUM 2.1 mg/dL 1.6-2.6 ANION GAP 8 mmol/L 5-15 .CREAT EGFR(CKD-EPI) >90 >60 May 21, 2024 06:59 AM [facility] BASIC METABOLIC PANEL+MG Specimen Type: PLASMA No comment entered. Ordering Provider: GOLDIE BENITEZ Report Released Date/Time: May 15, 2024 08:34 AM Reporting Lab: [facility] [address] Performing Lab: [facility] [address] CREATININE 0.9 mg/dL 0.7-1.2 UREA NITROGEN 18 [...] 12:52 PM Reporting Lab: [facility] [address] Performing Lab: [facility] [address] CREATININE 0.7 mg/dL 0.7-1.2 UREA NITROGEN 13 [...] AM 97.4 42 119/58 98 0 [place] [facility] Social History: Smoking Status (Most current) [...] [facility] Mar 20, 2019 04:03 PM [place]-TOBACCO QUIT 5 TO < 15 YRS [facility] [...] 11:49 AM ABSCESS DRAIN PLACEMENT PERITONEAL (P): MEGFLACA YAMIL [id number] -1950 M Exm Date: JUN 22, 2024@11:49 Req Phys: ANGELA HOLDEN Loc: [facility]06-22-2024@17:14 Img Loc: INTERVENTIONAL RADIOLOGY Service: [place] [address] (Case [id number] COMPLETE) IR PERITONEAL/RETROPERITONEAL PER(ANI Detailed) CPT:11967 Reason for Study: diverticulitis with abscess (Case [id number] COMPLETE) IR MOD SEDATION 10-22 MIN (ANI Detailed) CPT:47441 Clinical History: [place] IS NOT under investigation for COVID-19 or is COVID-19 negative 73 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 please place abscess drain. Contact number for responsible provider who can be reached for any questions or notifications of critical findings: [phone] n/a LAST CREATININE 0.9 (06/21/24) Report Status: Verified Date Reported: JUN 22, 2024 Date Verified: JUN 22, 2024 Stove Bottom Worker E-Sig:/ES/LISA PENDLETON MD Report: PROCEDURES: Placement of [...] Using real-time CT fluoroscopy, a 5 Jordanian RedDrummeresis catheter was advanced into the collection in the left pelvis. A wire was coiled in the collection. The tract into the collection was dilated to accommodate the 12 Jordanian locking pigtail drainage catheter. There was return [...] Primary Interpreting Staff: LISA PENDLETON MD, RADIOLOGIST (Stove Bottom Worker) /JRT LISA PENDLETON [facility] Jun 22, 2024 11:[address] NEEDLE PLACEMENT (P): FLACA WEAVER [id number] -1950 M Exm Date: JUN 22, 2024@11:48 Req Phys: ANGELA HOLDEN Loc: 2K/06-22-2024@17:14 Img Loc: CT IMAGING Service: [place] [address] (Case [id number] COMPLETE) CT SCAN FOR NEEDLE PLACEMENT (CT Detailed) CPT:72955 Reason for Study: l pelvic abscess drain Clinical History: Report Status: Verified Date Reported: JUN 22, 2024 Date Verified: JUN 22, 2024 Stove Bottom Worker E-Sig:/ES/LISA PENDLETON MD Report: PROCEDURES: Placement of [...] Using real-time CT fluoroscopy, a 5 Jordanian RedDrummeresis catheter was advanced into the collection in the left pelvis. A wire was coiled in the collection. The tract into the collection was dilated to accommodate the 12 Jordanian locking pigtail drainage catheter. There was return [...] Primary Interpreting Staff: LISA PENDLETON MD, RADIOLOGIST (Stove Bottom Worker) /JRT LISA PENDLETON [facility] Jun 21, 2024 06:[address] (AP) ABDOMEN/PELVIS (P): FLACA WEAVER [id number] -1950 M Exm Date: JUN 21, 2024@18:09 Req Phys: DELIA MARTINEZ Loc: [facility] EMERGENCY DEPT WALK-IN (Re Img Loc: CT IMAGING Service: [place] [address] (Case [id number] COMPLETE) CT (AP) ABDOMEN/PELVIS W CONTRAST(CT Detailed) CPT:16716 Contrast Media : Non-ionic Iodinated Reason for [...] PLASMA .CREAT EGFR(CKD-E >90 Ref: >=60 Allergies: ([place] only) TERAZOSIN (Mar 13, 2015) Defer to [...] 21, 2024 Date Verified: JUN 21, 2024 Stove Bottom Worker E-Sig:/ES/CARLOS A CUNNINGHAM DO Report: EXAMINATION: CT [...] Interpreting Staff: CARLOS A CUNNINGHAM DO, RADIOLOGIST (Stove Bottom Worker) /CARLOS A ROWELL [facility] May 25, 2024 09:00 AM IR FISTULOGRAM OR SINOGRAM : FLACA WEAVER [id number] -1950 M Exm Date: MAY 25, 2024@09:00 Req Phys: AMINTA ESCALONA Loc: [facility] INTERVENTIONAL RADIO Img Loc: INTERVENTIONAL RADIOLOGY Service: [place] [address] (Case [id number] COMPLETE) IR FISTULOGRAM OR SINOGRAM (ANI Detailed) CPT:21726 Contrast Media : unspecified contrast media Reason [...] 25, 2024 Date Verified: MAY 25, 2024 Stove Bottom Worker E-Sig:/ES/DAVID BURNS MD Report: PROCEDURES 05/25/2024 9:48 [...] Primary Interpreting Staff: DAVID BURNS MD, RADIOLOGIST (Stove Bottom Worker) /CSS DAVID BURNS [facility] May 25, 2024 08:[address] (AP) ABDOMEN/PELVIS (P): FLACA WEAVER [id number] -1950 M Exm Date: MAY 25, 2024@08:23 Req Phys: DAVID BURNS Pat Loc: [facility] INTERVENTIONAL RADIO Img Loc: CT IMAGING Service: [place] [address] (Case [id number] COMPLETE) CT (AP) ABDOMEN/PELVIS W/O CONTRA(CT Detailed) CPT:30319 Reason for Study: assess abscess and possible [...] PLASMA .CREAT EGFR(CKD-E >90 Ref: >=60 Allergies: ([place] only) TERAZOSIN (Mar 13, 2015) Report Status: Verified Date Reported: MAY 25, 2024 Date Verified: MAY 25, 2024 Stove Bottom Worker E-Sig:/ES/JESSENIA GOODMAN MD Report: EXAM: CT abdomen and pelvis without intravenous contrast. 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 TECHNIQUE: Helical acquisition of image data was performed for the abdomen and pelvis without intravenous contrast. Dose: 512.57 mGy*cm COMPARISON: CT abdomen pelvis with contrast 05/11/[address] abdomen pelvis 04/23/2024.; CT abdomen pelvis 05/05/2020 FINDINGS: HEAD WELL PULLER: Pigtail catheter projecting over the left hemipelvis [...] Primary Interpreting Staff: JESSENIA GOODMAN MD, RADIOLOGIST (Stove Bottom Worker) Primary Interpreting Resident: YOHANNES MELO DO, FENCE INSTALLER FOREMAN /CMN JESSENIA GOODMAN [facility] May 11, 2024 12:39 PM IR FISTULOGRAM / SINOGRAM (P): FLACA WEAVER [id number] -1950 M Exm Date: MAY 11, 2024@12:39 Req Phys: PALMIRA POWELL Loc: [facility] C/R FOLLOW-UP CLINIC (Req' Img Loc: INTERVENTIONAL RADIOLOGY Service: [place] [address] (Case [id number] COMPLETE) IR INJECTION FOR SINOGRAM DIAGNOS(ANI Detailed) CPT:56649 Contrast Media : Non-ionic Iodinated Reason for Study: s/p drain placement for diverticular abscess- assess for drain (Case [id number] COMPLETE) IR FISTULOGRAM OR SINOGRAM (ANI Detailed) CPT:79645 Contrast Media : unspecified contrast media (Case 3773 COMPLETE) IR DRAINAGE CATHETER SUPPLY (ANI Detailed) CPT:C1729 Clinical History: [place] IS NOT under investigation for COVID-19 or is COVID-19 negative s/p drain placement for diverticular abscess- assess for drain removal Contact number for responsible provider who can be reached for any questions or notifications of critical findings: [phone] Palmira Powell MD LAST CREATININE 0.7 (05/04/24) Report Status: Verified Date Reported: MAY 11, 2024 Date Verified: MAY 11, 2024 Stove Bottom Worker E-Sig:/ES/AMINTA ESCALONA MD Report: PROCEDURES Abdominal drain [...] Interpreting Staff: AMINTA ESCALONA MD, INTERVENTIONAL RADIOLOGIST (Stove Bottom Worker) /AMINTA VELAZCO [facility] May 11, 2024 11:[address] (AP) ABDOMEN/PELVIS (P): FLACA WEAVER [id number] -1950 M Exm Date: MAY 11, 2024@11:40 Req Phys: PALMIRA POWELL Loc: [facility] C/R FOLLOW-UP CLINIC (Req' Img Loc: CT IMAGING Service: [place] [address] (Case [id number] COMPLETE) CT (AP) ABDOMEN/PELVIS W CONTRAST(CT Detailed) CPT:48142 Contrast Media : Non-ionic Iodinated Reason for [...] any questions or notifications of critical findings: [phone] Palmira Powell MD LAST 3: Collection DT [...] PLASMA .CREAT EGFR(CKD-E >90 Ref: >=60 Allergies: ([place] only) TERAZOSIN (Mar 13, 2015) Report Status: Verified Date Reported: MAY 11, 2024 Date Verified: MAY 11, 2024 Stove Bottom Worker E-Sig:/ES/LISA PENDLETON MD Report: CT abdomen and [...] Primary Interpreting Staff: LISA PENDLETON MD, RADIOLOGIST (Stove Bottom Worker) /LISA CARDONA [facility] Pathology Reports: +/- 30 days [...] RE PORT: Reporting Lab: [facility] [CLIA# [id number]] [place] [address] Accession [UID]: [id number] [[id number]] Received: Jun 22, 2024@13:38 Collection sample: FLUID Collection date: Jun 22, 2024 13:15 Provider: ANGELA HOLDEN Comment on specimen: LLQ ABSCESS, RECEIVED IN ANAEROBIC TRANSPORT VIAL Test(s) ordered: GRAM STAIN.................... completed: Jun 22, 2024 15:03 CULTURE & SUSCEPTIBILITY...... completed: Jun 25, 2024 * BACTERIOLOGY FINAL REPORT => Jun 25, 2024 10:56 TECH CODE: [id number] GRAM STAIN: DIRECT SMEAR of specimen before [...] Bacteriology Report Performed By: [facility] [CLIA# [id number]] [place] [address] [facility] Jun 22, 2024 01:15 PM LR MICROBIOLOGY RE PORT: Reporting Lab: [facility] [CLIA# [id number]] [place] [address] Accession [UID]: [id number] [[id number]] Received: Jun 22, 2024@13:38 Collection sample: FLUID Collection date: Jun 22, 2024 13:15 Provider: ANGELA HOLDEN Comment on specimen: LLQ ABSCESS, RECEIVED IN ANAEROBIC TRANSPORT VIAL Test(s) ordered: ANAEROBIC CULTURE............. completed: Jun 28, 2024 * BACTERIOLOGY FINAL REPORT => Jun 28, 2024 10:08 TECH CODE: [id number] CULTURE RESULTS: HEAVY GROWTH MIXED ANAEROBES Comment: [...] Bacteriology Report Performed By: [facility] [CLIA# [id number]] [place] [address] [facility] Jun 21, 2024 06:12 PM LR MICROBIOLOGY RE PORT: Reporting Lab: [facility] [CLIA# [id number]] [place] [address] Accession [UID]: [id number] [[id number]] Received: Jun 21, 2024@18:12 Collection sample: BLOOD [...] Bacteriology Report Performed By: [facility] [CLIA# [id number]] [place] [address] [facility] Jun 21, 2024 06:11 PM LR MICROBIOLOGY RE PORT: Reporting Lab: [facility] [CLIA# [id number]] [place] [address] Accession [UID]: [id number] [[id number]] Received: Jun 21, 2024@18:11 Collection sample: BLOOD [...] Bacteriology Report Performed By: [facility] [CLIA# [id number]] [place] [address] [facility] Jun 08, 2024 11:00 AM LR MICROBIOLOGY RE PORT: Reporting Lab: [facility] [CLIA# [id number]] [place] [address] Accession [UID]: [id number] [[id number]] Received: Jun 08, 2024@11:00 Collection sample: URINE Collection date: Jun 08, 2024 11:00 Provider: PAMLIRA POWELL Comment on specimen: urine Test(s) ordered: CULTURE & SUSCEPTIBILITY...... completed: Jun 09, 2024 * BACTERIOLOGY FINAL REPORT => Jun 09, 2024 19:12 TECH CODE: [id number] CULTURE RESULTS: ESCHERICHIA COLI - Quantity: >100,000 [...] Bacteriology Report Performed By: [facility] [CLIA# [id number]] [place] [address] [facility] Encounter Notes: All associated encounter notes This section contains the clinical notes associated to the Encounter. Date/Time Encounter Note(s) Provider Source May 28, 2024 09:36 AM COLON & RECTAL ELISA BRAEDEN ATTENDING NOTE: LOCAL TITLE: COLON-RECTAL CLINIC NOTE STANDARD TITLE: COLON & RECTAL SURGERY ATTENDING NOTE DATE OF NOTE: MAY 28, 2024@09:36 ENTRY DATE: MAY 28, 2024@09:36:58 AUTHOR: PALMIRA POWELL COSIGNER: URGENCY: STATUS: COMPLETED 73-year-old gentleman here for follow-up after removal of drain. Doing well. Now passing air through his urine and urine is a little cloudy, but no pain. Denies any abdominal pain. No fevers at home. PE: Temperature: 97.4 F [36.3 C] (05/28/2024 08:09) Blood Pressure: 119/58 (05/28/2024 08:09) Pulse: 42 (05/28/2024 08:09) Respiration: 17 (05/15/2024 08:20) Pain: 0 (05/28/2024 08:09) Pulse Oximetry: 98% (05/28/2024 08:09) AAOx3, NAD Abd - soft, NT/ND A/P: This is a 73-year-old gentleman with diverticulitis c/b abscess and CVF - plan for lap sigmoidectomy with ICG scope and bilateral ureteral stent placement - risks including but not limited to bleeding, wound infection, anastomotic dehiscence, intraabdominal abscess requiring IR drain placement, emergent return to OR with stoma, poss ICU stay, inadvertant injury to other organs and were d/w patient and he agrees to proceed - PREET for surgery is 07/03/2024 - Total time spent reviewing chart, patient care and consultation on day of clinic visit: 25min /alexi/ PALMIRA POWELL MD STAFF SURGEON, COLON/RECTAL Signed: 05/28/2024 09:40 PALMIRA POWELL [facility] May 28, 2024 08:43 AM SURGERY OPERATIVE NOTE: LOCAL TITLE: GENERAL SURGERY PRE-OP SCHEDULING NOTE STANDARD TITLE: SURGERY OPERATIVE NOTE DATE OF NOTE: MAY 28, 2024@08:43 ENTRY DATE: MAY 28, 2024@08:43:50 AUTHOR: PALMIRA POWELL EXP COSIGNER: URGENCY: STATUS: COMPLETED General Surgery Pre-Op Scheduling Worksheet Clearance: Anesthesia Pre-Operative Clearance (needs [facility] ANES RTC order) Pre-operative diagnosis: Diverticulitis Operation: Laparoscopic Sigmoidectomy with ICG and bilateral ureteral stents Surgeon: Co-Surgeon: None Estimated operating time: 180 minutes Wound class: Clean-contaminated (2) Helen-operative antibiotics: Ordered Laterality: Not applicable Position in OR: Lithotomy Anesthesia Type: General Post-op plans: Inpatient everett Surgery Consent: Completed today Desired Pre-op labs, EKG, and radiographs (if any) have been ordered by me and are: CBC, BMP, Hemoglobin Alc, EKG Is the case palliative? No Blood needed in OR: No Type and Screen Special Equipment/Scopes/Mesh/Reps needed: ICG scope OR Priority Level: Elective We discussed the code status. The patient is a full code The mutually agreed upon clinically indicated date for the operation is Jun /jerome POWELL MD STAFF SURGEON, COLON/RECTAL Signed: 05/28/2024 08:45 Receipt Acknowledged By: 05/28/2024 09:23 /alexi/ RAMIRO HENAON, RN, PHN General Surgery/Colorectal Coordinator PALMIRA POWELL [facility] May 28, 2024 08:41 AM SURGERY NOTE: LOCAL TITLE: HAILE FRAILTY TOOL STANDARD TITLE: SURGERY NOTE DATE OF NOTE: MAY 28, 2024@08:41 ENTRY DATE: MAY 28, 2024@08:41:41 AUTHOR: PALMIRA POWELL EXP COSIGNER: URGENCY: STATUS: COMPLETED FRAILTY CALCULATION: Risk Analysis Index (HAILE) score is: Score: 25 Surgical Pause Risk Analysis Index (HAILE) Active User: Palmira Powell CALCULATED SCORE Variable Score Sex: 3 Cancer Status: No Weight Loss: 0 Poor Appetite: 0 Renal Insufficiency: 0 Chronic/Congestive Heart Failure: 0 Shortness of Breath: 0 Dependent Livin Cognitive Decline: No ADL*Cognitive Decline: 0 Mobility: Can get around without any help Eating: Can plan and prepare his/her own meals Toileting: Can use the toilet without help Personal Hygiene: Can shower or bathe without prompting or help HAILE Score: 25 /alexi/ PALMIRA POWELL MD STAFF SURGEON, COLON/RECTAL Signed: 05/28/2024 08:43 PALMIRA POWELL [facility] May 28, 2024 08:11 AM COLON & RECTAL ELISA BRAEDEN NURSING NOTE: LOCAL TITLE: COLON-RECTAL CLINIC NURSING NOTE STANDARD TITLE: COLON & RECTAL SURGERY NURSING NOTE DATE OF NOTE: MAY 28, 2024@08:11 ENTRY DATE: MAY 28, 2024@08:11:29 AUTHOR: DAMION MALDONADO EXP COSIGNER: URGENCY: STATUS: COMPLETED Vital Signs: Temperature: 97.4 F [36.3 C] (05/28/2024 08:09) Blood Pressure: 119/58 (05/28/2024 08:09) Heart Rate: 42 (05/28/2024 08:09) Respiratory Rate: 17 (05/15/2024 08:20) Pain: 0 (05/28/2024 08:09) Type of Visit: Follow up /jerome MALDONADO LPN LPN Signed: 05/28/2024 08:11 DAMION MALDONADO [facility]
--- OUTSIDE RECORDS SUMMARY | 2024-07-16 07:26 | XMS_ITS | Encounter Summary ---
Author Name [facility] [facility] [place] Address [address] [place] [address] Care Team Providers Care Litigation Manager Name Role Phone JATINDER BENITEZ Primary [...] PART A Sep 29, 2016 PART A [id number] JUDY WEAVER PATIENT Selected Encounter This section includes the information on record at [place] for the Encounter. Date/Time Encounter Type Encounter Description Reason Provider Source May 28, 2024 09:14 AM HC PRO PHONE CALL 5-10 MIN TELEPHONE/SURGERY ICD-10-CM Z71.89 Other specified counseling RAMIRO FABIAN Encounter Template Text not used by [place] Assessments - Encounter Diagnoses This section includes the primary and secondary diagnoses documented for the Encounter. Date/Time Primary/Secondary Diagnosis Diagnosis Name Provider Source May 28, 2024 09:14 AM PRIMARY Other specified counseling RAMIRO FABIAN [facility] Plan of Treatment: Future Appointments (+ 6 months) and Future Tests (+/- 45 days) The Plan of Treatment section includes future care activities for the patient from [facility] [place] [facility]. This section includes future appointments and future orders which are active, pending or scheduled. Future Appointments This section includes appointments that were scheduled to occur 6 months from the date of the Encounter, up to a maximum of 20 appointments. The data comes from all [facility]. Appointment Date/Time Appointment Type Appointme nt Facility Name Jun 04, 2024 11:30 AM AMBULATORY - NONE [facility] Jun 08, 2024 11:00 AM AMBULATORY - SURGERY [facility] Jun 08, 2024 12:45 PM AMBULATORY - NONE [facility] Jun 08, 2024 01:15 PM [facility] Jun 08, 2024 01:45 PM AMBULATORY - SURGERY [facility] Jun 21, 2024 04:48 PM [facility] Jun 21, 2024 05:45 PM [facility] Jun 27, 2024 07:00 AM [facility] Jun 27, 2024 07:30 AM [facility] Jun 27, 2024 08:00 AM [facility] Jul 03, 2024 05:55 AM [facility] Jul 13, 2024 08:15 AM [facility] Active, Pending, and Scheduled Orders This section includes a listing of several types of active, pending, and scheduled orders, including clinic medications orders, diagnostic test orders, procedure orders and consult orders; where the start date of the order is 45 days before the date of the Encounter or 45 days after the date of theEncounter. The data comes from all [facility]. Test Date/Time Test Type Test Details Facility Name Apr 26, 2024 10:10 AM Laboratory - Microbiology Order CULTURE & SUSCEPTIBILITY WOUND OTHER WC ONCE ~For Test: CULTURE & SUSCEPTIBILITY ~Culture sample from JUAN drain output [facility] Apr 26, 2024 10:10 AM Laboratory - Microbiology Order GRAM STAIN WOUND OTHER WC ONCE ~For Test: GRAM STAIN ~JUAN drain culture/gram stain [facility] May 28, 2024 12:00 AM Laboratory - Blood Bank Order TYPE & SCREEN - LAB BLOOD SP [facility] Jun 08, 2024 09:57 AM Laboratory - Chemistry Order URINALYSIS URINE WC ONCE [facility] Jun 12, 2024 12:00 AM Laboratory - Chemistry Order BNP PLASMA SP ONCE [facility] Jun 21, 2024 05:45 PM Laboratory - Blood Bank Order TYPE & SCREEN - LAB BLOOD WC [facility] Jul 03, 2024 12:00 AM Laboratory - Blood Bank Order TYPE & SCREEN - LAB BLOOD WC [facility] Lab Results: +/- 30 days [...] Range Comment Jun 24, 2024 09:50 AM [facility] BASIC METABOLIC PANEL+MG Specimen Type: PLASMA Comment: Specimen received in Lab at: 0948 Ordering Provider: JEVON ZAZUETA Report Released Date/Time: Jun 23, 2024 06:07 PM Reporting Lab: [facility] [address] Performing Lab: [facility] [address] CREATININE 0.8 mg/dL 0.7-1.2 UREA NITROGEN 13 mg/dL 8-26 GLUCOSE 135 mg/dL H 70-100 SODIUM 135 mmol/L L 136-145 POTASSIUM 3.6 mmol/L 3.5-5.1 CHLORIDE 103 mmol/L 98-107 CO2 24 mmol/L 22-29 CALCIUM 9.2 mg/dL 8.4-10.2 MAGNESIUM 1.9 mg/dL 1.6-2.6 ANION GAP 8 mmol/L 5-15 .CREAT EGFR(CKD-EPI) >90 >60 Jun 24, 2024 09:50 AM [facility] CBC Specimen Type: BLOOD Comment: Specimen received in Lab at: 0948 Ordering Provider: JEVON ZAZUETA Report Released Date/Time: Jun 23, 2024 06:07 PM Reporting Lab: [facility] [address] Performing Lab: [facility] [address] WBC 15.5 H 4.0-11.0 RBC 4.93 4.60-6.20 HGB 15.2 g/dL 13.5-17.9 HCT 46.5 41.0-54.0 MCV 94.3 fL 80.0-100.0 MCH 30.8 pg 27.0-33.0 MCHC 32.7 g/dL 32.0-37.5 PLT 223 150-400 MPV 11.4 fL 9.1-13.0 RDW 13.9 11.5-14.5 Jun 23, 2024 07:52 AM [facility] COMPREHENSIVE METABOLIC PANEL+MG Specimen Type: PLASMA No comment entered. Ordering Provider: JEVON ZAZUETA Report Released Date/Time: Jun 22, 2024 05:51 PM Reporting Lab: [facility] [address] Performing Lab: [facility] [address] CREATININE 0.7 mg/dL 0.7-1.2 UREA NITROGEN 16 [...] >90 >60 Jun 23, 2024 07:52 AM [facility] CBC & DIFF Specimen Type: BLOOD Comment: Automated Differential Performed Ordering Provider: JEVON ZAZUETA Report Released Date/Time: Jun 22, 2024 05:51 PM Reporting Lab: [facility] [address] Performing Lab: [facility] [address] WBC 14.9 H 4.0-11.0 RBC 5.09 4.60-6.20 [...] 0.1 0.0-0.1 Jun 22, 2024 06:10 PM [facility] CBC Specimen Type: BLOOD No comment entered. Ordering Provider: JEVON ZAZUETA Report Released Date/Time: Jun 22, 2024 05:51 PM Reporting Lab: [facility] [address] Performing Lab: [facility] [address] WBC 16.9 H 4.0-11.0 RBC 5.28 4.60-6.20 HGB 16.9 g/dL 13.5-17.9 HCT 50.4 41.0-54.0 MCV 95.5 fL 80.0-100.0 MCH 32.0 pg 27.0-33.0 MCHC 33.5 g/dL 32.0-37.5 PLT 223 150-400 MPV 10.9 fL 9.1-13.0 RDW 14.0 11.5-14.5 Jun 22, 2024 06:10 PM [facility] COMPREHENSIVE METABOLIC PANEL+MG Specimen Type: PLASMA No comment entered. Ordering Provider: JEVON ZAZUETA Report Released Date/Time: Jun 22, 2024 05:51 PM Reporting Lab: [facility] [address] Performing Lab: [facility] [address] CREATININE 0.7 mg/dL 0.7-1.2 UREA NITROGEN 17 [...] >90 >60 Jun 21, 2024 06:48 PM [facility] URINALYSIS Specimen Type: URINE No comment entered. Ordering Provider: DELIA MARTINEZ Report Released Date/Time: Jun 21, 2024 05:45 PM Reporting Lab: [facility] [address] Performing Lab: [facility] [address] URINE COLOR YELLOW SPECIFIC GRAVITY 1.041 H [...] 500 NEGATIVE Jun 21, 2024 05:34 PM [facility] POC CREATININE Specimen Type: BLOOD No comment entered. Ordering Provider: DELIA MARTINEZ Report Released Date/Time: Jun 21, 2024 06:07 PM Reporting Lab: [facility] [address] Performing Lab: [facility] [address] POC CREATININE 1.1 mg/dL 0.6-1.3 Jun 21, 2024 05:30 PM [facility] POC ABG/LACTATE Specimen Type: VENOUS BLOOD No comment entered. Ordering Provider: DELIA MARTINEZ Report Released Date/Time: Jun 21, 2024 06:07 PM Reporting Lab: [facility] [address] Performing Lab: [facility] [address] POC PH 7.470 H 7.31-7.41 POC PCO2 31.2 mm[Hg] L 41.00-51 .0 0 POC PO2 46 mm[Hg] H 35.0-40.0 POC TCO2 24 mmol/L 24.0-29.0 POC HCO3 22.7 mmol/L L 23.0-28.0 POC BE ECT -1 mmol/L POC SO2 85 H 70-75 POC LACTATE 1.85 mmol/L 0.90-1.70 Jun 21, 2024 05:24 PM [facility] PROTHROMBIN TIME/INR Specimen Type: PLASMA No comment entered. Ordering Provider: DELIA MARTINEZ Report Released Date/Time: Jun 21, 2024 05:30 PM Reporting Lab: [facility] [address] Performing Lab: [facility] [address] .INR 1.2 H 0.8-1.1 .PT 13.9 s H 9.4-12.5 Jun 21, 2024 05:24 PM [facility] LIPASE Specimen Type: PLASMA No comment entered. Ordering Provider: DELIA MARTINEZ Report Released Date/Time: Jun 21, 2024 05:30 PM Reporting Lab: [facility] [address] Performing Lab: [facility] [address] LIPASE 32 U/L <60 Jun 21, 2024 05:24 PM [facility] EXTRA GOLD GEL TUBE Specimen Type: SERUM No comment entered. Ordering Provider: DELIA MARTINEZ Report Released Date/Time: Jun 21, 2024 05:41 PM Reporting Lab: [facility] [address] Performing Lab: [facility] [address] EXTRA GOLD GEL TUBE RECEIVED Jun 21, 2024 05:24 PM [facility] COMPREHENSIVE METABOLIC PANEL+MG Specimen Type: PLASMA No comment entered. Ordering Provider: DELIA MARTIENZ Report Released Date/Time: Jun 21, 2024 05:30 PM Reporting Lab: [facility] [address] Performing Lab: [facility] [address] CREATININE 0.9 mg/dL 0.7-1.2 UREA NITROGEN 29 [...] mg/dL <0.5 Jun 21, 2024 05:24 PM [facility] CBC & DIFF Specimen Type: BLOOD Comment: Manual Differential Performed Ordering Provider: DELIA MARTINEZ Report Released Date/Time: Jun 21, 2024 05:30 PM Reporting Lab: [facility] [address] Performing Lab: [facility] [address] WBC 21.3 H 4.0-11.0 RBC 5.48 4.60-6.20 [...] MORPHOLOGY PRESENT Jun 08, 2024 10:59 AM [facility] PROTHROMBIN TIME/INR Specimen Type: PLASMA No comment entered. Ordering Provider: PALMIRA POWELL Report Released Date/Time: May 28, 2024 09:02 AM Reporting Lab: [facility] [address] Performing Lab: [facility] [address] .INR 1.0 0.8-1.1 .PT 11.8 s 9.4-12.5 Jun 08, 2024 10:59 AM [facility] CBC Specimen Type: BLOOD No comment entered. Ordering Provider: PALMIRA POWELL Report Released Date/Time: May 28, 2024 09:02 AM Reporting Lab: [facility] [address] Performing Lab: [facility] [address] WBC 16.1 H 4.0-11.0 RBC 5.02 4.60-6.20 HGB 16.0 g/dL 13.5-17.9 HCT 47.1 41.0-54.0 MCV 93.8 fL 80.0-100.0 MCH 31.9 pg 27.0-33.0 MCHC 34.0 g/dL 32.0-37.5 PLT 228 150-400 MPV 10.3 fL 9.1-13.0 RDW 14.6 H 11.5-14.5 Jun 08, 2024 10:59 AM [facility] HEMOGLOBIN A1C Specimen Type: BLOOD [...] May 28, 2024 09:02 AM Reporting Lab: [facility] [address] Performing Lab: [facility] [address] HEMOGLOBIN A1C 4.9 4.0-6.0 Jun 08, 2024 10:59 AM [facility] BASIC METABOLIC PANEL+MG Specimen Type: PLASMA No comment entered. Ordering Provider: PALMIRA POWELL Report Released Date/Time: May 28, 2024 09:02 AM Reporting Lab: [facility] [address] Performing Lab: [facility] [address] CREATININE 0.9 mg/dL 0.7-1.2 UREA NITROGEN 15 mg/dL 8-26 GLUCOSE 93 mg/dL 70-100 SODIUM 139 mmol/L 136-145 POTASSIUM 3.7 mmol/L 3.5-5.1 CHLORIDE 106 mmol/L 98-107 CO2 25 mmol/L 22-29 CALCIUM 9.8 mg/dL 8.4-10.2 MAGNESIUM 2.1 mg/dL 1.6-2.6 ANION GAP 8 mmol/L 5-15 .CREAT EGFR(CKD-EPI) >90 >60 May 21, 2024 06:59 AM [facility] BASIC METABOLIC PANEL+MG Specimen Type: PLASMA No comment entered. Ordering Provider: GOLDIE BENITEZ Report Released Date/Time: May 15, 2024 08:34 AM Reporting Lab: [facility] [address] Performing Lab: [facility] [address] CREATININE 0.9 mg/dL 0.7-1.2 UREA NITROGEN 18 mg/dL 8-26 GLUCOSE 126 mg/dL H 70-100 SODIUM 138 mmol/L 136-145 POTASSIUM 4.0 mmol/L 3.5-5.1 CHLORIDE 105 mmol/L 98-107 CO2 24 mmol/L 22-29 CALCIUM 9.8 mg/dL 8.4-10.2 MAGNESIUM 2.0 mg/dL 1.6-2.6 ANION GAP 9 mmol/L 5-15 .CREAT EGFR(CKD-EPI) >90 >60 May 04, 2024 08:36 AM [facility] BASIC METABOLIC PANEL+MG Specimen Type: PLASMA No comment entered. Ordering Provider: GOLDIE BENITEZ Report Released Date/Time: May 03, 2024 12:52 PM Reporting Lab: [facility] [address] Performing Lab: [facility] [address] CREATININE 0.7 mg/dL 0.7-1.2 UREA NITROGEN 13 [...] AM 97.4 42 119/58 98 0 [place] [facility] Social History: Smoking Status (Most [...] Facil ity May 15, 2024 08:30 AM [place]-TOBACCO FORMER USER [facility] Tobacco Use History This section includes a history of the smoking, or tobacco-related health factors, that were collected on or before the date of the Encounter. The data comes from the [place] facility where the Encounter took place. Date/Time Smoking Status/Tobacco Use Comment F acility May 15, 2024 08:30 AM [place]-TOBACCO QUIT 15 YRS OR MORE [facility] May 06, 2023 11:30 AM VA-TOBACCO FORMER USER [facility] May 06, 2023 11:30 AM VA-TOBACCO QUIT 15 YRS OR MORE [facility] Jun 04, 2022 09:00 AM VA-TOBACCO FORMER USER [facility] Jun 04, 2022 09:00 AM VA-TOBACCO QUIT 15 YRS OR MORE [facility] Jul 10, 2021 08:00 AM VA-TOBACCO FORMER USER [facility] Jul 10, 2021 08:00 AM VA-TOBACCO QUIT 5 TO < 15 YRS [facility] May 23, 2020 08:30 AM VA-TOBACCO FORMER USER [facility] May 23, 2020 08:30 AM VA-TOBACCO QUIT 5 TO < 15 YRS [facility] Mar 20, 2019 04:03 PM VA-TOBACCO FORMER USER [facility] Mar 20, 2019 04:03 PM VA-TOBACCO QUIT 5 TO < 15 YRS [facility] Mar 21, 2018 08:13 AM FORMER TOBACCO USER 7Y OR GREATE R [facility] Feb 24, 2017 09:24 AM FORMER TOBACCO USER 7Y OR GREATE R [facility] January 07, 2016 08:01 AM FORMER TOBACCO USE >1Y <7Y [facility] Feb 03, 2015 07:58 AM FORMER TOBACCO USE <1Y [facility] Feb 26, 2014 08:41 AM CURRENT TOBACCO USER [facility] May 13, 2011 01:45 PM CURRENT TOBACCO USER [facility] Advance Directives: All historical and [...] ABSCESS DRAIN PLACEMENT PERITONEAL (P): MEGFLACA YAMIL [id number] -1950 M Exm Date: JUN 22, 2024@11:49 Req Phys: ANGELA HOLDEN Loc: [facility]06-22-2024@17:14 Img Loc: INTERVENTIONAL RADIOLOGY Service: [place] [address] (Case [id number] COMPLETE) IR PERITONEAL/RETROPERITONEAL PER(ANI Detailed) CPT:04137 Reason for Study: diverticulitis with abscess (Case [id number] COMPLETE) IR MOD SEDATION 10-22 MIN (ANI Detailed) CPT:25424 Clinical History: IS NOT under investigation for COVID-19 or is COVID-19 negative 73 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 please place abscess drain. Contact number for responsible provider who can be reached for any questions or notifications of critical findings: [phone] n/a LAST CREATININE 0.9 (06/21/24) Report Status: Verified Date Reported: JUN 22, 2024 Date Verified: JUN 22, 2024 Electric Train Driver E-Sig:/ES/LISA PENDLETON MD Report: PROCEDURES: Placement of [...] obtained. A pre-procedural Time-Out was performed per [facility] policy. The patient was placed in the supine position on the CT table. Preprocedural scan performed. The suprapubic region/lower abdominal wall was sterilely prepped and draped in the usual fashion.1% lidocaine without epinephrine was used for local anesthesia. Using real-time CT fluoroscopy, a 5 Gu[employer] [employer] catheter was advanced into the collection in the left pelvis. A wire was coiled in the collection. The tract into the collection was dilated to accommodate the 12 Guinean locking pigtail drainage catheter. There was return [...] Interpreting Staff: LISA PENDLETON MD, RADIOLOGIST (Electric Train Driver) /JRLISA [facility] Jun 22, 2024 11:[address] NEEDLE PLACEMENT (P): FLACA WEAVER [id number] -1950 M Exm Date: JUN 22, 2024@11:48 Req Phys: ANGELA HOLDEN Amanda Loc: 2[facility]06-22-2024@17:14 Img Loc: CT [facility] [place] [address] (Case [id number] COMPLETE) CT SCAN FOR NEEDLE PLACEMENT (CT Detailed) CPT:27010 Reason for Study: l pelvic abscess drain Clinical History: Report Status: Verified Date Reported: JUN 22, 2024 Date Verified: JUN 22, 2024 Electric Train Driver E-Sig:/ES/LISA PENDLETON MD Report: PROCEDURES: Placement of [...] obtained. A pre-procedural Time-Out was performed per [facility] policy. The patient was placed in the supine position on the CT table. Preprocedural scan performed. The suprapubic region/lower abdominal wall was sterilely prepped and draped in the usual fashion.1% lidocaine without epinephrine was used for local anesthesia. Using real-time CT fluoroscopy, a 5 Guinean [employer] catheter was advanced into the collection in the left pelvis. A wire was coiled in the collection. The tract into the collection was dilated to accommodate the 12 Guinean locking pigtail drainage catheter. There was return [...] Interpreting Staff: LISA PENDLETON MD, RADIOLOGIST (Electric Train Driver) /JRT LISA PENDLETON [facility] Jun 21, 2024 06:[address] (AP) ABDOMEN/PELVIS (P): FLACA WEAVER [id number] -1950 M Exm Date: JUN 21, 2024@18:09 Req Phys: DELIA MARTINEZ Loc: [facility] EMERGENCY DEPT WALK-IN (Re Img Loc: CT IMAGING Service: [place] [address] (Case [id number] COMPLETE) CT (AP) ABDOMEN/PELVIS W CONTRAST(CT Detailed) CPT:22821 Contrast Media : Non-ionic Iodinated Reason for [...] PLASMA .CREAT EGFR(CKD-E >90 Ref: >=60 Allergies: ([place] only) TERAZOSIN (Mar 13, 2015) Defer to [...] 21, 2024 Date Verified: JUN 21, 2024 Electric Train Driver E-Sig:/ALEXI/CARLOS A CUNNINGHAM DO Report: EXAMINATION: CT [...] Interpreting Staff: CARLOS A CUNNINGHAM DO, RADIOLOGIST (Electric Train Driver) /CARLOS A ROWELL [facility] May 25, 2024 09:00 AM IR FISTULOGRAM OR SINOGRAM : MEGFLACADARCI LOBO [id number] -1950 M Exm Date: MAY 25, 2024@09:00 Req Phys: IQRAAMINTA FRANCISCO Pat Loc: [facility] XRAY INTERVENTIONAL RADIO Img Loc: INTERVENTIONAL RADIOLOGY Service: [place] [address] (Case [id number] COMPLETE) IR FISTULOGRAM OR SINOGRAM (ANI Detailed) CPT:69881 Contrast Media : unspecified contrast media Reason for Study: s/p drain placement for diverticular abscess- assess for drain Clinical History: IS NOT under investigation for COVID-19 or is COVID-19 negative 2 week follow up per Dr Pruitt Contact number for responsible provider who can be reached for any questions or notifications of critical findings: [phone] Iqra LAST 3: Collection DT Specimen Test Name [...] 25, 2024 Date Verified: MAY 25, 2024 Electric Train Driver E-Sig:/ES/DAVID BURNS MD Report: PROCEDURES 05/25/2024 9:48 [...] Primary Interpreting Staff: DAVID BURNS MD, RADIOLOGIST (Electric Train Driver) /CSS DAVID BURNS [facility] May 25, 2024 08:[address] (AP) ABDOMEN/PELVIS (P): FLACA WEAVER [id number] -1950 M Exm Date: MAY 25, 2024@08:23 Req Phys: DAVID BURNS [facility] Loc: MSP XRAY INTERVENTIONAL RADIO Img Loc: CT IMAGING Service: [place] [address] (Case [id number] COMPLETE) CT (AP) ABDOMEN/PELVIS W/O CONTRA(CT Detailed) CPT:00509 Reason for Study: assess abscess and possible [...] PLASMA .CREAT EGFR(CKD-E >90 Ref: >=60 Allergies: ([place] only) TERAZOSIN (Mar 13, 2015) Report Status: Verified Date Reported: MAY 25, 2024 Date Verified: MAY 25, 2024 Electric Train Driver E-Sig:/ES/JESSENIA GOODMAN MD Report: EXAM: CT abdomen and pelvis without intravenous contrast. 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 TECHNIQUE: Helical acquisition of image data was performed for the abdomen and pelvis without intravenous contrast. Dose: 512.57 mGy*cm COMPARISON: CT abdomen pelvis with contrast 05/11/[address] abdomen pelvis 04/23/2024.; CT abdomen pelvis 05/05/2020 FINDINGS: CRACKER AND COOKIE MACHINE OPERATOR: Pigtail catheter projecting over the [...] Primary Interpreting Staff: JESSENIA GOODMAN MD, RADIOLOGIST (Electric Train Driver) Primary Interpreting Resident: YOHANNES MELO DO, PLUMBING ENGINEER /CMN JESSENIA GOODMAN [facility] May 11, 2024 12:39 PM IR FISTULOGRAM / SINOGRAM (P): FLACA WEAVER [id number] -1950 M Exm Date: MAY 11, 2024@12:39 Req Phys: PALMIRA POWELL Loc: [facility] C/R FOLLOW-UP CLINIC (Req' Img Loc: INTERVENTIONAL RADIOLOGY Service: [place] [address] (Case [id number] COMPLETE) IR INJECTION FOR SINOGRAM DIAGNOS(ANI Detailed) CPT:55543 Contrast Media : Non-ionic Iodinated Reason for Study: s/p drain placement for diverticular abscess- assess for drain (Case [id number] COMPLETE) IR FISTULOGRAM OR SINOGRAM (ANI Detailed) CPT:89997 Contrast Media : unspecified contrast media (Case [id number] COMPLETE) IR DRAINAGE CATHETER SUPPLY (ANI Detailed) CPT:C1729 Clinical History: IS NOT under investigation for COVID-19 or is COVID-19 negative s/p drain placement for diverticular abscess- assess for drain removal Contact number for responsible provider who can be reached for any questions or notifications of critical findings: [phone] Palmira Powell MD LAST CREATININE 0.7 (05/04/24) Report Status: Verified Date Reported: MAY 11, 2024 Date Verified: MAY 11, 2024 Electric Train Driver E-Sig:/ES/AMINTA PRUITT MD Report: PROCEDURES Abdominal drain check CLINICAL HISTORY: Diverticular abscess COMPARISONS: 04/23/2024, 04/24/2024, 05/11/2024 STAFF RADIOLOGIST: Aminta Pruitt MD Dose (Air Kerma): 9.2 mGy Fluoroscopy [...] sinogram in IR. Primary Interpreting Staff: AMINTA PRUITT MD, INTERVENTIONAL RADIOLOGIST (Electric Train Driver) /AMINTA VELAZCO [facility] May 11, 2024 11:[address] (AP) ABDOMEN/PELVIS (P): FLACA WEAVER [id number] -1950 M Exm Date: MAY 11, 2024@11:40 Req Phys: PALMIRA POWELL Loc: [facility] C/R FOLLOW-UP CLINIC (Req' Img Loc: CT IMAGING Service: [place] [address] (Case [id number] COMPLETE) CT (AP) ABDOMEN/PELVIS W CONTRAST(CT Detailed) CPT:39377 Contrast Media : Non-ionic Iodinated Reason for [...] any questions or notifications of critical findings: [phone] Palmira Powell MD LAST 3: Collection DT [...] PLASMA .CREAT EGFR(CKD-E >90 Ref: >=60 Allergies: ([place] only) TERAZOSIN (Mar 13, 2015) Report Status: Verified Date Reported: MAY 11, 2024 Date Verified: MAY 11, 2024 Electric Train Driver E-Sig:/ES/LISA PENDLETON MD Report: CT abdomen and [...] Interpreting Staff: LISA PENDLETON MD, RADIOLOGIST (Electric Train Driver) /LISA CARDONA [facility] Pathology Reports: +/- 30 days [...] PM LR MICROBIOLOGY RE PORT: Reporting Lab: [facility] [CLIA# [id number]] [place] [address] Accession [UID]: [id number] [[id number]] Received: Jun 22, 2024@13:38 Collection sample: FLUID Collection date: Jun 22, 2024 13:15 Provider: ANGELA HOLDEN Comment on specimen: LLQ ABSCESS, RECEIVED IN ANAEROBIC TRANSPORT VIAL Test(s) ordered: GRAM STAIN.................... completed: Jun 22, 2024 15:03 CULTURE & SUSCEPTIBILITY...... completed: Jun 25, 2024 * BACTERIOLOGY FINAL REPORT => Jun 25, 2024 10:56 TECH CODE: [id number] GRAM STAIN: DIRECT SMEAR of specimen before [...] --=--=-- Performing Laboratory: Bacteriology Report Performed By: [facility] [CLIA# [id number]] [place] [address] [facility] Jun 22, 2024 01:15 PM LR MICROBIOLOGY RE PORT: Reporting Lab: [facility] [CLIA# [id number]] [place] [address] Accession [UID]: [id number] [[id number]] Received: Jun 22, 2024@13:38 Collection sample: FLUID Collection date: Jun 22, 2024 13:15 Provider: ANGELA HOLDEN Comment on specimen: LLQ ABSCESS, RECEIVED IN ANAEROBIC TRANSPORT VIAL Test(s) ordered: ANAEROBIC CULTURE............. completed: Jun 28, 2024 * BACTERIOLOGY FINAL REPORT => Jun 28, 2024 10:08 TECH CODE: [id number] CULTURE RESULTS: HEAVY GROWTH MIXED ANAEROBES Comment: including the followin+ Bacteroides fragilis 4+ Bacteroides vulgatus 4+ Clostridium innocuum Beta-lactamase negative 4+ Bacteroides caccae 4+ Parvimonas micra 4+ Bacteroides uniformis 4+ Gemella morbillorum 4+ anaerobic small, Gram Positive Rods 4+ Bacteroides thetaiotaomicron Standard workup is now complete. Bacteriology Remark(s): THIS REPORT IS FINAL =--=--=--=--=--=--=--=--=--=--=--=- -=--=--=--=--=--=--=--=--=--=--=--= --=--=-- Performing Laboratory: Bacteriology Report Performed By: [facility] [CLIA# [id number]] [place] [address] [facility] Jun 21, 2024 06:12 PM LR MICROBIOLOGY RE PORT: Reporting Lab: [facility] [CLIA# [id number]] [place] [address] Accession [UID]: [id number] [[id number]] Received: Jun 21, 2024@18:12 Collection sample: BLOOD [...] --=--=-- Performing Laboratory: Bacteriology Report Performed By: [facility] [CLIA# [id number]] [place] [address] [facility] Jun 21, 2024 06:11 PM LR MICROBIOLOGY RE PORT: Reporting Lab: [facility] [CLIA# [id number]] [place] [address] Accession [UID]: [id number]] Received: Jun 21, 2024@18:11 Collection sample: BLOOD [...] --=--=-- Performing Laboratory: Bacteriology Report Performed By: [facility] [CLIA# [id number]] [place] [address] [facility] Jun 08, 2024 11:00 AM LR MICROBIOLOGY RE PORT: Reporting Lab: [facility] [CLIA# [id number]] [place] [address] Accession [UID]: [id number] [[id number]] Received: Jun 08, 2024@11:00 Collection sample: URINE Collection date: Jun 08, 2024 11:00 Provider: PALMIRA POWELL Comment on specimen: urine Test(s) ordered: CULTURE & SUSCEPTIBILITY...... completed: Jun 09, 2024 * BACTERIOLOGY FINAL REPORT => Jun 09, 2024 19:12 TECH CODE: [id number] CULTURE RESULTS: ESCHERICHIA COLI - Quantity: >100,000 [...] --=--=-- Performing Laboratory: Bacteriology Report Performed By: [facility] [CLIA# [id number]] [place] [address] [facility] Encounter Notes: All associated encounter notes This section contains the clinical notes associated to the Encounter. Date/Time Encounter Note(s) Provider Source May 28, 2024 09:14 AM SURGERY CASE MANAG ER NOTE: LOCAL TITLE: SURGERY COORDINATOR NOTE STANDARD TITLE: SURGERY MORTAR WORKER NOTE DATE OF NOTE: MAY 28, 2024@09:14 ENTRY DATE: MAY 28, 2024@09:14:14 AUTHOR: RAMIRO FABIAN COSIGNER: URGENCY: STATUS: COMPLETED Surgery Information: Surgery Date: July 03, 2024 Surgical Procedure: Laparoscopic sigmoidectomy with ICG and bilateral ureteral stents Surgeon: Dr. Powell Resident: TBD Antibiotic order addressed: Yes DVT Prophylaxis order addressed: Yes Consent: Consent completed: Yes Date signed: Location: [facility] To be completed day of surgery: No Preoperative Assessment: H&P: June 08, 2024 Site: [facility] Lab work completed: June 08, 2024 Blood Bank: Not applicable Does the patient have yarsani objections to blood: No EKG completed: June 08, 2024 Chest X-ray completed: No HCG for females <55 year old: No Order entered for pre-op RN to obtain day of surgery. Urine specimen cup provided and requested patient collect first urine of the morning at home and bring to [place]. Will be collected on 06/08/2024. Smoking cessation prior to surgery discussed: Yes Medical devices: None Consult for device completed and sent: No Life sustaining treatment status: Full Code Anticoagulation consults and plan: Not applicable Physical Assessment: Level of consciousness/mental status intact: Yes Ambulatory status: Independent Non-ambulatory or requires ceiling lift: No Hard of hearing/hearing aids: No Visual: No issues reported Medication management: Patient reports they are independent. Diabetes: Patient reports that they do not have diabetes Obstructive airway: No Social Assessment: Care Transition/Plan of Care: Admission surgery: Arrival date/time: 07/03/2024 Customer Care Team Coach: Ross my friend or my daughter Xavi [phone] Discharge Plan: Patient plan for discharge: Home Medication Instructions: Reviewed recommendations from med preop: Take these medications the day of surgery: Per med preop. Hold these medications on the day of surgery: Per med preop. Diabetic instructions: N/A Anticoagulant: N/A Additional medication instructions: Hold all multivitamins, herbal supplements, NSAIDS x 7 days prior to surgery PREOP INSTRUCTIONS: Patient was instructed to bring medications/CPAP as appropriate to hospital: Not applicable NPO after midnight prior to surgery for food, may consume clear liquids up until 2 hours prior to arrival time. No food, gum, candy, orange juice or dairy after midnight. Antibacterial scrubs surgical site to be completed the evening prior to surgery: Yes Surgical site location: Chest nipples to groin area Instructions: On the day of surger scrub surgical area x 2 with scrub packets at 4pm and 8pm for 10 min each time. Rinse, pat area dry and put on clean clothes. Wash hair after second scrub. No jewelry, piercings, money or valuables Incentive spirometry demonstrated and discussed. Smoking cessation prior to surgery if applicable. DISCHARGE INSTRUCTIONS: C/R surgery post op discharge instructions Post op follow-up: Admit / TBD READINESS TO LEARN Barriers: No barriers Participants: Patient Teaching strategy: 1:1, Written. Learning needs: Preoperative pathway discussed with patient for scheduled procedure. Objectives: Patient/significant other correctly states surgery date, time, and location, Patient/significant other states understanding of medication instructions, Patient/significant other states understanding of surgical preps and medication Medication: Patient/Significant other correctly states surgery date, time and location. Patient/Significant other states understanding of surgical preps and medication. Patient states understanding of plan for short stay. Patient state understanding of Admission process. PRINTED MATERIALS The following perioperative materials were discussed, printed materials and written preoperative instructions given to patient. All forms to be completed by the surgeon must go to the Release of Information (JEANNIE) desk in the main atrium. , [address], [address]. /alexi/ RAMIRO CHRISTIANSON, RN, PHN General Surgery/Colorectal Coordinator Signed: 05/28/2024 10:12 RAMIRO FABIAN [facility]
--- OUTSIDE RECORDS SUMMARY | 2024-07-16 07:27 | XMS_ITS | Encounter Summary ---
Author Name [facility] [place] [facility] [place] [facility] [place] [facility] [place] Address [address] [place] [address] Care Team Providers Care Manufacturing Planner Name Role Phone JATINDER CABRERA Primary Care [...] PART A Sep 29, 2016 PART A [id number] [phone] JUDY WEAVER PATIENT Selected Encounter This section includes the information on record at CT for the Encounter. Date/Time Encounter Type Encounter Description Reason Provider Source Jun 08, 2024 01:15 PM ELECTROCARDIOGRAM REPORT EKG ICD-10-CM Z13.6 Encounter for screening for cardiovascular disorders JULIETTE COOLEY MA IHE Encounter Template Text not used by CT Assessments - Encounter Diagnoses This section includes the primary and secondary diagnoses documented for the Encounter. Date/Time Primary/Secondary Diagnosis Diagnosis Name Provider Source Jun 08, 2024 11:27 AM PRIMARY Encounter for screening for cardiovascular disorders RIKKI GHOSH [facility] Plan of Treatment: Future Appointments (+ [...] 20 appointments. The data comes from all [facility]. Appointment Date/Time Appointment Type Appointme nt Facility Name Jun 21, 2024 04:48 PM [facility] Jun 21, 2024 05:45 PM AMBULATORY - NONE [facility] Jun 27, 2024 07:00 AM [facility] Jun 27, 2024 07:30 AM AMBULATORY - MEDICINE [facility] Jun 27, 2024 08:00 AM AMBULATORY - MEDICINE [facility] Jul 03, 2024 05:55 AM AMBULATORY - NONE [facility] Jul 13, 2024 08:15 AM AMBULATORY - NONE [facility] Active, Pending, and Scheduled Orders This section includes a listing of several types of active, pending, and scheduled orders, including clinic medications orders, diagnostic test orders, procedure orders and consult orders; where the start date of the order is 45 days before the date of the Encounter or 45 days after the date of theEncounter. The data comes from all [facility]. Test Date/Time Test Type Test Details Facility Name Apr 26, 2024 10:10 AM Laboratory - Microbiology Order CULTURE & SUSCEPTIBILITY WOUND OTHER WC ONCE ~For Test: CULTURE & SUSCEPTIBILITY ~Culture sample from JUAN drain output [facility] Apr 26, 2024 10:10 AM Laboratory - Microbiology Order GRAM STAIN WOUND OTHER WC ONCE ~For Test: GRAM STAIN ~JUAN drain culture/gram stain [facility] May 28, 2024 12:00 AM Laboratory - Blood Bank Order TYPE & SCREEN - LAB BLOOD SP [facility] Jun 08, 2024 09:57 AM Laboratory - Chemistry Order URINALYSIS URINE WC ONCE [facility] Jun 12, 2024 12:00 AM Laboratory - Chemistry Order BNP PLASMA SP ONCE [facility] Jun 21, 2024 05:45 PM Laboratory - Blood Bank Order TYPE & SCREEN - LAB BLOOD WC [facility] Jul 03, 2024 12:00 AM Laboratory - Blood Bank Order TYPE & SCREEN - LAB BLOOD WC [facility] Jul 16, 2024 12:00 AM Laboratory - Chemistry Order CBC BLOOD SP ONCE [facility] Jul 17, 2024 12:00 AM Laboratory - Chemistry Order [...] - Unit Interpretation Reference Range Comment Jul 08, 2024 10:50 AM [facility] URINALYSIS Specimen Type: URINE No comment entered. Ordering Provider: KATELYNN PERSON Report Released Date/Time: Jul 08, 2024 08:41 AM Reporting Lab: [facility] [address] Performing Lab: [facility] [address] URINE COLOR YELLOW SPECIFIC GRAVITY >1.050 H [...] Jul 07, 2024 04:49 PM Reporting Lab: [facility] [address] Performing Lab: [facility] [address] WBC 17.5 H 4.0-11.0 RBC 4.88 4.60-6.20 [...] Jul 07, 2024 04:49 PM Reporting Lab: [facility] [address] Performing Lab: [facility] [address] PHOSPHORUS 2.6 mg/dL 2.3-4.3 Jul 08, 2024 09:54 AM [facility] BASIC METABOLIC PANEL+MG Specimen Type: PLASMA Comment: Specimen received in Lab at: [id number] Ordering Provider: JUANCARLOS ECHOLS S Report Released Date/Time: Jul 07, 2024 04:49 PM Reporting Lab: [facility] [address] Performing Lab: [facility] [address] CREATININE 0.9 mg/dL 0.7-1.2 UREA NITROGEN 26 [...] Jul 07, 2024 12:26 PM Reporting Lab: [facility] [address] Performing Lab: [facility] [address] C DIFF TOX B GENE PCR NEGATIVE Negative Jul 07, 2024 07:41 AM [facility] PHOSPHORUS Specimen Type: PLASMA No comment entered. Ordering Provider: JEVON ZAZUETA Report Released Date/Time: Jul 06, 2024 03:44 PM Reporting Lab: [facility] [address] Performing Lab: [facility] [address] PHOSPHORUS 3.1 mg/dL 2.3-4.3 Jul 07, 2024 07:41 AM [facility] BASIC METABOLIC PANEL+MG Specimen Type: PLASMA No comment entered. Ordering Provider: JEVON ZAZUETA Report Released Date/Time: Jul 06, 2024 03:44 PM Reporting Lab: [facility] [address] Performing Lab: [facility] [address] CREATININE 0.9 mg/dL 0.7-1.2 UREA NITROGEN 20 [...] Jul 06, 2024 03:44 PM Reporting Lab: [facility] [address] Performing Lab: [facility] [address] WBC 21.2 H 4.0-11.0 RBC 5.09 4.60-6.20 [...] Jul 05, 2024 01:22 PM Reporting Lab: [facility] [address] Performing Lab: [facility] [address] WBC 18.0 H 4.0-11.0 RBC 4.83 4.60-6.20 [...] Jul 05, 2024 01:22 PM Reporting Lab: [facility] [address] Performing Lab: [facility] [address] PHOSPHORUS 3.6 mg/dL 2.3-4.3 Jul 06, 2024 07:21 AM [facility] BASIC METABOLIC PANEL+MG Specimen Type: PLASMA No comment entered. Ordering Provider: JEVON ZAZUETA Report Released Date/Time: Jul 05, 2024 01:22 PM Reporting Lab: [facility] [address] Performing Lab: [facility] [address] CREATININE 0.7 mg/dL 0.7-1.2 UREA NITROGEN 12 [...] Jul 04, 2024 09:39 AM Reporting Lab: [facility] [address] Performing Lab: [facility] [address] MAGNESIUM 2.0 mg/dL 1.6-2.6 Jul 05, 2024 07:17 AM [facility] PHOSPHORUS Specimen Type: PLASMA No comment entered. Ordering Provider: JUANCARLOS ECHOLS S Report Released Date/Time: Jul 04, 2024 09:39 AM Reporting Lab: [facility] [address] Performing Lab: [facility] [address] PHOSPHORUS 2.0 mg/dL L 2.3-4.3 Jul 05, 2024 07:17 AM [facility] BASIC METABOLIC PANEL+MG Specimen Type: PLASMA No comment entered. Ordering Provider: JUANCARLOS ECHOLS S Report Released Date/Time: Jul 04, 2024 09:39 AM Reporting Lab: [facility] [address] Performing Lab: [facility] [address] CREATININE 0.7 mg/dL 0.7-1.2 UREA NITROGEN 12 [...] Jul 04, 2024 09:39 AM Reporting Lab: [facility] [address] Performing Lab: [facility] [address] WBC 18.3 H 4.0-11.0 RBC 4.49 L [...] Jul 03, 2024 06:31 PM Reporting Lab: [facility] [address] Performing Lab: [facility] [address] CREATININE 0.7 mg/dL 0.7-1.2 UREA NITROGEN 16 [...] Jul 03, 2024 06:31 PM Reporting Lab: [facility] [address] Performing Lab: [facility] [address] PHOSPHORUS 2.8 mg/dL 2.3-4.3 Jul 04, 2024 07:16 AM [facility] CBC Specimen Type: BLOOD No comment entered. Ordering Provider: GABINO CAMERON Report Released Date/Time: Jul 03, 2024 06:31 PM Reporting Lab: [facility] [address] Performing Lab: [facility] [address] WBC 20.6 H 4.0-11.0 RBC 4.63 4.60-6.20 [...] Jul 03, 2024 06:31 PM Reporting Lab: [facility] [address] Performing Lab: [facility] [address] WBC 20.6 H 4.0-11.0 RBC 4.63 4.60-6.20 [...] Jul 03, 2024 06:31 PM Reporting Lab: [facility] [address] Performing Lab: [facility] [address] BNP 292 pg/mL H <99 Jul 03, 2024 10:32 PM [facility] FINGERSTICK GLUCOSE Specimen Type: BLOOD Comment: Save Result Nurse Notified Ordering Provider: KATELYNN PERSON Report Released Date/Time: Jul 03, 2024 10:50 PM Reporting Lab: [facility] [address] Performing Lab: [facility] [address] FINGERSTICK GLUCOSE 126 mg/dL H 70-100 Jul 03, 2024 05:33 PM [facility] FINGERSTICK GLUCOSE Specimen Type: BLOOD Comment: Save Result Nurse Notified Ordering Provider: KATELYNN PERSON Report Released Date/Time: Jul 03, 2024 05:46 PM Reporting Lab: [facility] [address] Performing Lab: [facility] [address] FINGERSTICK GLUCOSE 141 mg/dL H 70-100 Jul 03, 2024 02:31 PM [facility] POC ABG/ELECTROLYTES Specimen Type: ARTERIAL BLOOD Comment: FIO2 = 97% Patient Temp: 36.0 C Sample Type = ARTERIAL Ordering Provider: MAZIN ARREDONDO Report Released Date/Time: Jul 03, 2024 01:48 PM Reporting Lab: [facility] [address] Performing Lab: [facility] [address] POC PH 7.387 7.35-7.45 POC PCO2 34.4 [...] Jul 03, 2024 01:48 PM Reporting Lab: [facility] [address] Performing Lab: [facility] [address] POC PH 7.280 L 7.35-7.45 POC PCO2 [...] Type: URINE No comment entered. Ordering Provider: PALMIRA POWELL Report Released Date/Time: Jun 12, 2024 04:01 PM Reporting Lab: [facility] [address] Performing Lab: [facility] [address] URINE COLOR YELLOW SPECIFIC GRAVITY 1.031 1.003-1.03 [...] Ordering Provider: PALMIRA POWELL Report Released Date/Time: Jun 12, 2024 03:59 PM Reporting Lab: [facility] [address] Performing Lab: [facility] [address] WBC 15.8 H 4.0-11.0 RBC 5.11 4.60-6.20 [...] PM Reporting Lab: [facility] [address] Performing Lab: [facility] [address] CREATININE 0.8 mg/dL 0.7-1.2 UREA NITROGEN 13 [...] PM Reporting Lab: [facility] [address] Performing Lab: [facility] [address] WBC 15.5 H 4.0-11.0 RBC 4.93 4.60-6.20 [...] PM Reporting Lab: [facility] [address] Performing Lab: [facility] [address] CREATININE 0.7 mg/dL 0.7-1.2 UREA NITROGEN 16 [...] PM Reporting Lab: [facility] [address] Performing Lab: [facility] [address] WBC 14.9 H 4.0-11.0 RBC 5.09 4.60-6.20 [...] PM Reporting Lab: [facility] [address] Performing Lab: [facility] [address] WBC 16.9 H 4.0-11.0 RBC 5.28 4.60-6.20 [...] PM Reporting Lab: [facility] [address] Performing Lab: [facility] [address] CREATININE 0.7 mg/dL 0.7-1.2 UREA NITROGEN 17 [...] PM Reporting Lab: [facility] [address] Performing Lab: [facility] [address] URINE COLOR YELLOW SPECIFIC GRAVITY 1.041 H [...] PM Reporting Lab: [facility] [address] Performing Lab: [facility] [address] POC CREATININE 1.1 mg/dL 0.6-1.3 Jun 21, 2024 05:30 PM [facility] POC ABG/LACTATE Specimen Type: VENOUS BLOOD No comment entered. Ordering Provider: DELIA MARTINEZ Report Released Date/Time: Jun 21, 2024 06:07 PM Reporting Lab: [facility] [address] Performing Lab: [facility] [address] POC PH 7.470 H 7.31-7.41 POC PCO2 [...] PM Reporting Lab: [facility] [address] Performing Lab: [facility] [address] .INR 1.2 H 0.8-1.1 .PT 13.9 s H 9.4-12.5 Jun 21, 2024 05:24 PM [facility] LIPASE Specimen Type: PLASMA No comment entered. Ordering Provider: DELIA MARTINEZ Report Released Date/Time: Jun 21, 2024 05:30 PM Reporting Lab: [facility] [address] Performing Lab: [facility] [address] LIPASE 32 U/L <60 Jun 21, 2024 05:24 PM [facility] EXTRA GOLD GEL TUBE Specimen Type: SERUM No comment entered. Ordering Provider: DELIA MARTINEZ Report Released Date/Time: Jun 21, 2024 05:41 PM Reporting Lab: [facility] [address] Performing Lab: [facility] [address] EXTRA GOLD GEL TUBE RECEIVED Jun 21, 2024 05:24 PM [facility] COMPREHENSIVE METABOLIC PANEL+MG Specimen Type: PLASMA No comment entered. Ordering Provider: DELIA MARTINEZ Report Released Date/Time: Jun 21, 2024 05:30 PM Reporting Lab: [facility] [address] Performing Lab: [facility] [address] CREATININE 0.9 mg/dL 0.7-1.2 UREA NITROGEN 29 [...] PM Reporting Lab: [facility] [address] Performing Lab: [facility] [address] WBC 21.3 H 4.0-11.0 RBC 5.48 4.60-6.20 [...] MORPHOLOGY PRESENT Jun 08, 2024 10:59 AM [facility] PROTHROMBIN TIME/INR Specimen Type: PLASMA No comment entered. Ordering Provider: PALMIRA POWELL Report Released Date/Time: May 28, 2024 09:02 AM Reporting Lab: [facility] [address] Performing Lab: [facility] [address] .INR 1.0 0.8-1.1 .PT 11.8 s 9.4-12.5 Jun 08, 2024 10:59 AM [facility] HEMOGLOBIN A1C Specimen Type: BLOOD Comment: [...] AM Reporting Lab: [facility] [address] Performing Lab: [facility] [address] HEMOGLOBIN A1C 4.9 4.0-6.0 Jun 08, 2024 10:59 AM [facility] CBC Specimen Type: BLOOD No comment entered. Ordering Provider: PALMIRA POWELL Report Released Date/Time: May 28, 2024 09:02 AM Reporting Lab: [facility] [address] Performing Lab: [facility] [address] WBC 16.1 H 4.0-11.0 RBC 5.02 4.60-6.20 HGB 16.0 g/dL 13.5-17.9 HCT 47.1 41.0-54.0 MCV 93.8 fL 80.0-100.0 MCH 31.9 pg 27.0-33.0 MCHC 34.0 g/dL 32.0-37.5 PLT 228 150-400 MPV 10.3 fL 9.1-13.0 RDW 14.6 H 11.5-14.5 Jun 08, 2024 10:59 AM [facility] BASIC METABOLIC PANEL+MG Specimen Type: PLASMA No comment entered. Ordering Provider: PALMIRA POWELL Report Released Date/Time: May 28, 2024 09:02 AM Reporting Lab: [facility] [address] Performing Lab: [facility] [address] CREATININE 0.9 mg/dL 0.7-1.2 UREA NITROGEN 15 mg/dL 8-26 GLUCOSE 93 mg/dL 70-100 SODIUM 139 mmol/L 136-145 POTASSIUM 3.7 mmol/L 3.5-5.1 CHLORIDE 106 mmol/L 98-107 CO2 25 mmol/L 22-29 CALCIUM 9.8 mg/dL 8.4-10.2 MAGNESIUM 2.1 mg/dL 1.6-2.6 ANION GAP 8 mmol/L 5-15 .CREAT EGFR(CKD-EPI) >90 >60 May 21, 2024 06:59 AM [facility] BASIC METABOLIC PANEL+MG Specimen Type: PLASMA No comment entered. Ordering Provider: GOLDIE CABRERA Report Released Date/Time: May 15, 2024 08:34 AM Reporting Lab: [facility] [address] Performing Lab: [facility] [address] CREATININE 0.9 mg/dL 0.7-1.2 UREA NITROGEN 18 mg/dL 8-26 GLUCOSE 126 mg/dL H 70-100 SODIUM 138 mmol/L 136-145 POTASSIUM 4.0 mmol/L 3.5-5.1 CHLORIDE 105 mmol/L 98-107 CO2 24 mmol/L 22-29 CALCIUM 9.8 mg/dL 8.4-10.2 MAGNESIUM 2.0 mg/dL 1.6-2.6 ANION GAP 9 mmol/L 5-15 .CREAT EGFR(CKD-EPI) >90 >60 Vital Signs: All taken on the encounter date This section contains inpatient and outpatient Vital Signs collected on the date of the Encounter. Date/Time Temperature Pulse Blood Pressure Respiratory Rate SP02 Pain Height Weight Body Mass Index Source Jun 08, 2024 11:43 AM 147/73 [facility] Jun 08, 2024 11:43 AM 97.5 58 143/64 18 97 0 70 206.4 30 [facility] Social History: Smoking Status (Most [...] from all [facility]. Date Advance Directives Provider Source Mar [...] 2024 10:09 AM CHEST 2 VIEWS PA AND LAT: FLACA WEAVER [id number] -1950 M Exm Date: JUL 08, 2024@10:09 Req Phys: KATELYNN PERSON Pat Loc: [facility]/07-08-2024@11:49 Img Loc: MAIN X-RAY Service: [place] [address] (Case 24 COMPLETE) CHEST 2 VIEWS PA AND LAT (RAD Detailed) CPT:40390 Reason for Study: Uptrending WBC, POD 5 [...] 08, 2024 Date Verified: JUL 08, 2024 Short Filler Bunch Machine Operator E-Sig: Report: CHEST 2 VIEWS PA AND LAT HISTORY: Uptrending WBC, POD 5 COMPARISON: CT chest 11/12/2022 TECHNIQUE: Frontal and lateral views of the chest, submitted to the CT National Teleradiology Program (NTP) for interpretation. FINDINGS: Lungs: Clear. No focal consolidation. No pulmonary edema. Pleura: No pleural effusion or pneumothorax. Mediastinum: Normal size and contour. Bones: Unremarkable. Impression: No acute cardiopulmonary disease. READING PHYSICIAN: Sarbjit Vaughn M.D. -[phone] 07/08/2024 12:46 EST [facility] National Teleradiology Program [phone] (For Medical Practitioner Use Only) Attention Patients / Veterans: If you have questions or concerns about these test results, please contact your ordering provider or primary care team. Primary Interpreting Staff: RADIOLOGY,OUTSIDE SERVICE, Staff Physician / RADIOLOGY,OUTSIDE SERVICE [facility] Jul 08, 2024 10:[address] (AP) ABDOMEN/PELVIS W CONTRAST: FLACA WEAVER [id number] -1950 M Exm Date: JUL 08, 2024@10:00 Req Phys: KATELYNN PERSON Loc: 2KG/07-08-2024@12:07 Img Loc: CT IMAGING Service: [place] [address] (Case 22 COMPLETE) CT (AP) ABDOMEN/PELVIS W CONTRAST(CT Detailed) CPT:95115 Contrast Media : Non-ionic Iodinated Reason for [...] PLASMA .CREAT EGFR(CKD-E >90 Ref: >=60 Allergies: ([place] only) TERAZOSIN (Mar 13, 2015) Report Status: Verified Date Reported: JUL 08, 2024 Date Verified: JUL 08, 2024 Short Filler Bunch Machine Operator E-Sig: Report: CT (AP) ABDOMEN/PELVIS W CONTRAST HISTORY: POD 5, Uptrending WBC - Concern for Abscess/other infection COMPARISON: June 21, 2024 TECHNIQUE: CT abdomen and pelvis was performed after intravenous contrast. Axial, sagittal and coronal reformatted images. The study was performed at the local CT facility and images were sent to the CT National Teleradiology Program (NTP) for interpretation. Number [...] as noted above READING PHYSICIAN: Celestino Blanc -[phone] 07/08/2024 13:04 EST [facility] National Teleradiology Program [phone] (For Medical Practitioner Use Only) Attention Patients / Veterans: If you have questions or concerns about these test results, please contact your ordering provider or primary care team. Primary Interpreting Staff: RADIOLOGY,OUTSIDE SERVICE, Staff Physician / RADIOLOGY,OUTSIDE SERVICE [facility] Jun 22, 2024 11:49 AM ABSCESS DRAIN PLACEMENT PERITONEAL (P): FLACA WEAVER [id number] -1950 M Exm Date: JUN 22, 2024@11:49 Req Phys: ANGELA HOLDEN Loc: [facility]/06-22-2024@17:14 Img Loc: INTERVENTIONAL RADIOLOGY Service: [place] [address] (Case [id number] COMPLETE) IR PERITONEAL/RETROPERITONEAL PER(ANI Detailed) CPT:07059 Reason for Study: diverticulitis with abscess (Case 3570 COMPLETE) IR MOD SEDATION 10-22 MIN (ANI Detailed) CPT:52544 Clinical History: [place] IS NOT under investigation for COVID-19 or is COVID-19 negative 73 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 please place abscess drain. Contact number for responsible provider who can be reached for any questions or notifications of critical findings: [phone] n/a LAST CREATININE 0.9 (06/21/24) Report Status: Verified Date Reported: JUN 22, 2024 Date Verified: JUN 22, 2024 Short Filler Bunch Machine Operator E-Sig:/ES/LISA PENDLETON MD Report: PROCEDURES: [...] obtained. A pre-procedural Time-Out was performed per [facility] policy. The patient was placed in the supine position on the CT table. Preprocedural scan performed. The suprapubic region/lower abdominal wall was sterilely prepped and draped in the usual fashion.1% lidocaine without epinephrine was used for local anesthesia. Using real-time CT fluoroscopy, a 5 [place] [employer] centesis catheter was advanced into the collection [...] Primary Interpreting Staff: LISA PENDLETON MD, RADIOLOGIST (Short Filler Bunch Machine Operator) /JRT LISA PENDLETON [facility] Jun 22, 2024 11:[address] NEEDLE PLACEMENT (P): FLACA WEAVER [id number] -1950 M Exm Date: JUN 22, 2024@11:48 Req Phys: ANGELA HOLDEN [facility] Loc: [facility]/06-22-2024@17:14 Img Loc: CT IMAGING Service: [place] [address] (Case [id number] COMPLETE) CT SCAN FOR NEEDLE PLACEMENT (CT Detailed) CPT:69533 Reason for Study: l pelvic abscess drain Clinical History: Report Status: Verified Date Reported: JUN 22, 2024 Date Verified: JUN 22, 2024 Short Filler Bunch Machine Operator E-Sig:/ES/LISA PENDLETON MD Report: PROCEDURES: [...] obtained. A pre-procedural Time-Out was performed per [facility] policy. The patient was placed in the supine position on the CT table. Preprocedural scan performed. The suprapubic region/lower abdominal wall was sterilely prepped and draped in the usual fashion.1% lidocaine without epinephrine was used for local anesthesia. Using real-time CT fluoroscopy, a 5 Guine[place] Risk[employer]esis catheter was advanced into the collection in [...] Primary Interpreting Staff: LISA PENDLETON MD, RADIOLOGIST (Short Filler Bunch Machine Operator) /JRT LISA PENDLETON [facility] Jun 21, 2024 06:[address] (AP) ABDOMEN/PELVIS (P): FLACA WEAVER [id number] -1950 M Exm Date: JUN 21, 2024@18:09 Req Phys: DELIA MARTINEZ Loc: [email or web address] EMERGENCY DEPT WALK-IN (Re Img Loc: CT IMAGING Service: [place] [address] (Case [id number] COMPLETE) CT (AP) ABDOMEN/PELVIS W CONTRAST(CT Detailed) CPT:49885 Contrast Media : Non-ionic Iodinated Reason for [...] PLASMA .CREAT EGFR(CKD-E >90 Ref: >=60 Allergies: ([place] only) TERAZOSIN (Mar 13, 2015) Defer to [...] 21, 2024 Date Verified: JUN 21, 2024 Short Filler Bunch Machine Operator E-Sig:/ALEXI/CARLOS A CUNNINGHAM DO Report: [...] Interpreting Staff: CARLOS A CUNNINGHAM DO, RADIOLOGIST (Short Filler Bunch Machine Operator) /KMB CARLOS A CUNNINGHAM [facility] May 25, 2024 09:00 AM IR FISTULOGRAM OR SINOGRAM : FLACA WEAVER [id number] -1950 M Exm Date: MAY 25, 2024@09:00 Req Phys: AMINTA PRUITT Loc: [facility] INTERVENTIONAL RADIO Img Loc: INTERVENTIONAL RADIOLOGY Service: [place] [address] (Case [id number] COMPLETE) IR FISTULOGRAM OR SINOGRAM (ANI Detailed) CPT:09271 Contrast Media : unspecified contrast media Reason [...] 25, 2024 Date Verified: MAY 25, 2024 Short Filler Bunch Machine Operator E-Sig:/ES/DAVID BURNS MD Report: PROCEDURES 05/25/2024 [...] Primary Interpreting Staff: DAVID BURNS MD, RADIOLOGIST (Short Filler Bunch Machine Operator) /CSS DAVID BURNS [facility] May 25, 2024 08:[address] (AP) ABDOMEN/PELVIS (P): FLACA WEAVER [id number] -1950 M Exm Date: MAY 25, 2024@08:23 Req Phys: DAVID BURNS Pat Loc: [facility] [[email or web address]] XRAY INTERVENTIONAL RADIO Img Loc: CT IMAGING Service: [place] [address] (Case [id number] COMPLETE) CT (AP) ABDOMEN/PELVIS W/O CONTRA(CT Detailed) CPT:47487 Reason for Study: assess abscess and possible [...] PLASMA .CREAT EGFR(CKD-E >90 Ref: >=60 Allergies: ([place] only) TERAZOSIN (Mar 13, 2015) Report Status: Verified Date Reported: MAY 25, 2024 Date Verified: MAY 25, 2024 Short Filler Bunch Machine Operator E-Sig:/ES/JESSENIA GOODMAN MD Report: EXAM: CT [...] pelvis 04/23/2024.; CT abdomen pelvis 05/05/2020 FINDINGS: TYING MACHINE OPERATOR: Pigtail catheter projecting over the [...] Primary Interpreting Staff: JESSENIA GOODMAN MD, RADIOLOGIST (Short Filler Bunch Machine Operator) Primary Interpreting Resident: YOHANNES MELO DO, ER MEDICAL TECHNICIAN /JESSENIA LOUIE [facility] May 11, 2024 12:39 PM IR FISTULOGRAM / SINOGRAM (P): FLACA WEAVER [id number] -1950 M Exm Date: MAY 11, 2024@12:39 Req Phys: PALMIRA POWELL Loc: [facility] [[email or web address]] C/R FOLLOW-UP CLINIC (Req' Img Loc: INTERVENTIONAL RADIOLOGY Service: [place] [address] (Case [id number] COMPLETE) IR INJECTION FOR SINOGRAM DIAGNOS(ANI Detailed) CPT:45570 Contrast Media : Non-ionic Iodinated Reason for Study: s/p drain placement for diverticular abscess- assess for drain (Case 3772 COMPLETE) IR FISTULOGRAM OR SINOGRAM (ANI Detailed) CPT:79178 Contrast Media : unspecified contrast media (Case 3773 COMPLETE) IR DRAINAGE CATHETER SUPPLY (ANI Detailed) CPT:C1729 Clinical History: [place] IS NOT under investigation for COVID-19 or is COVID-19 negative s/p drain placement for diverticular abscess- assess for drain removal Contact number for responsible provider who can be reached for any questions or notifications of critical findings: [phone] Palmira Powell MD LAST CREATININE 0.7 (05/04/24) Report Status: Verified Date Reported: MAY 11, 2024 Date Verified: MAY 11, 2024 Short Filler Bunch Machine Operator E-Sig:/ES/AMINTA PRUITT MD Report: PROCEDURES Abdominal drain [...] Interpreting Staff: AMINTA PRUITT MD, INTERVENTIONAL RADIOLOGIST ([place]) /AMINTA [facility]CO [facility] May 11, 2024 11:[address] (AP) ABDOMEN/PELVIS (P): FLACA WEAVER [id number] -1950 M Exm Date: MAY 11, 2024@11:40 Req Phys: PALMIRA POWELL Loc: [facility] [[email or web address] C/R FOLLOW-UP CLINIC (Req' Img Loc: CT IMAGING Service: [place] [address] (Case 3722 COMPLETE) CT (AP) ABDOMEN/PELVIS W CONTRAST(CT Detailed) CPT:14582 Contrast Media : Non-ionic Iodinated Reason for [...] any questions or notifications of critical findings: [phone] Palmira Powell MD LAST 3: Collection DT [...] PLASMA .CREAT EGFR(CKD-E >90 Ref: >=60 Allergies: ([place] only) TERAZOSIN (Mar 13, 2015) Report Status: Verified Date Reported: MAY 11, 2024 Date Verified: MAY 11, 2024 Short Filler Bunch Machine Operator E-Sig:/ES/LISA PENDLETON MD Report: CT abdomen [...] Primary Interpreting Staff: LISA PENDLETON MD, RADIOLOGIST (Short Filler Bunch Machine Operator) /JRLISA [facility] Pathology Reports: +/- 30 days [...] COMPLETED $APHDR Reporting Lab: [facility] [CLIA# [id number]] [place] [address] - - - - - - - [...] - PATHOLOGY REPORT Accession No. [id number] - - - - - - - [...] - PATHOLOGY REPORT Accession No. [id number] - - - - - - - [...] Second circumferential surgical margin, en face; E-F: Lacing Cutter diverticula; G: Lacing Cutter section of mesentery; H: Random b2b sales representative section of additional adipose tissue [...] One colonic tissue ring, bisected transversely. [facility]: Microscopic examination performed. DIAGNOSIS: 1. Colon, sigmoid, sigmoidectomy-- - Diverticulosis with perforation and focal abscess formation 2. 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.... completed: Jun 22, 2024 15:03 CULTURE & SUSCEPTIBILITY...... completed: Jun 25, 2024 * BACTERIOLOGY FINAL REPORT => Jun 25, 2024 10:56 TECH CODE: [id number] GRAM STAIN: DIRECT SMEAR of specimen before [...] Bacteriology Report Performed By: [facility] [CLIA# [id number]] [place] [address] [facility] Jun 22, 2024 01:15 PM LR MICROBIOLOGY RE PORT: Reporting Lab: [facility] [CLIA# [id number]] [place] [address] Accession [UID]: [id number] [[id number]] Received: Jun 22, 2024@13:38 Collection sample: FLUID Collection date: Jun 22, 2024 13:15 Provider: ANGELA HOLDEN Comment on specimen: LLQ ABSCESS, RECEIVED IN ANAEROBIC TRANSPORT VIAL Test(s) ordered: ANAEROBIC CULTURE............. completed: Jun 28, 2024 * BACTERIOLOGY FINAL REPORT => Jun 28, 2024 10:08 TECH CODE: [id number] CULTURE RESULTS: HEAVY GROWTH MIXED ANAEROBES Comment: [...] Bacteriology Report Performed By: [facility] [CLIA# [id number]] [place] [address] [facility] Jun 21, 2024 06:12 PM LR MICROBIOLOGY RE PORT: Reporting Lab: [facility] [CLIA# [id number]] [place] [address] Accession [UID]: [id number] [[id number]] Received: Jun 21, 2024@18:12 Collection sample: BLOOD [...] Bacteriology Report Performed By: [facility] [CLIA# [id number]] [place] [address] [facility] Jun 21, 2024 06:11 PM LR MICROBIOLOGY RE PORT: Reporting Lab: [facility] [CLIA# [id number]] [place] [address] Accession [UID]: [id number] [[id number]] Received: Jun 21, 2024@18:11 Collection sample: BLOOD [...] By: [facility] [place] [CLIA# [id number]] [place] [address] [facility] Jun 08, 2024 11:00 AM LR MICROBIOLOGY RE PORT: Reporting Lab: [facility] [CLIA# [id number]] [place] [address] Accession [UID]: [id number] [[id number]] Received: Jun 08, 2024@11:00 Collection sample: URINE Collection date: Jun 08, 2024 11:00 Provider: PALMIRA POWELL Comment on specimen: urine Test(s) ordered: CULTURE & SUSCEPTIBILITY...... completed: Jun 09, 2024 * BACTERIOLOGY FINAL REPORT => Jun 09, 2024 19:12 TECH CODE: [id number] CULTURE RESULTS: ESCHERICHIA COLI - Quantity: >100,000 [...] Bacteriology Report Performed By: [facility] [CLIA# [id number]] [address] [place] [place] [address] [facility]
--- OUTSIDE RECORDS SUMMARY | 2024-07-16 07:27 | XMS_ITS | Encounter Summary ---
Author Name [facility] [place] [facility] [place] Address [address] [place] [address] Care Team Providers Care Fly Finisher Name Role Phone JATINDER BENITEZ Primary [...] PART A Sep 29, 2016 PART A [id number] JUDY WEAVER PATIENT Selected Encounter This section includes the information on record at [place] for the Encounter. Date/Time Encounter Type Encounter Description Reason Provider Source Jun 04, 2024 11:30 AM MTMS BY PHARM EST 15 MIN TELEPHONE PRIMARY CARE ICD-10-CM I10 Essential (primary) hypertension HERNANDEZMATT Y [place] IHE Encounter Template Text not used by [place] Assessments - Encounter Diagnoses This section includes the primary and secondary diagnoses documented for the Encounter. Date/Time Primary/Secondary Diagnosis Diagnosis Name Provider Source Jun 04, 2024 11:30 AM PRIMARY Essential (primary) hypertension HERNANDEZMATT Y D [facility] Plan of Treatment: Future Appointments (+ 6 months) and Future Tests (+/- 45 days) The Plan of Treatment section includes future care activities for the patient from all [place] [facility] This section includes future appointments and future orders which are active, pending or scheduled. Future Appointments This section includes appointments that were scheduled to occur 6 months from the date of the Encounter, up to a maximum of 20 appointments. The data comes from all [facility]. Appointment Date/Time Appointment Type Appointme nt Facility Name Jun 08, 2024 11:00 AM AMBULATORY - SURGERY [facility] Jun 08, 2024 12:45 PM [facility] Jun 08, 2024 01:15 PM [facility] Jun 08, 2024 01:45 PM AMBULATORY - SURGERY [facility] Jun 21, 2024 04:48 PM AMBULATORY - MEDICINE [facility] Jun 21, 2024 05:45 PM [facility] Jun 27, 2024 07:00 AM [facility] Jun 27, 2024 07:30 AM AM[facility]ATORY - MEDICINE [facility] Jun 27, 2024 08:00 AM [facility] Jul 03, 2024 05:55 AM [facility] NONE [facility] Jul 13, 2024 08:15 AM AMBULATORY - NONE [facility] Active, Pending, and Scheduled Orders This section includes a listing of several types of active, pending, and scheduled orders, including clinic medications orders, diagnostic test orders, procedure orders and consult orders; where the start date of the order is 45 days before the date of the Encounter or 45 days after the date of theEncounter. The data comes from all [facility]. Test Date/Time Test Type Test Details [...] drain culture/gram stain [facility] May 28, 2024 12:00 AM Laboratory - Blood Bank Order TYPE & SCREEN - LAB BLOOD SP [facility] Jun 08, 2024 09:57 AM Laboratory - Chemistry Order URINALYSIS URINE WC ONCE [facility] Jun 12, 2024 12:00 AM Laboratory - Chemistry Order BNP PLASMA SP ONCE [facility] Jun 21, 2024 05:45 PM Laboratory - Blood Bank Order TYPE & SCREEN - LAB BLOOD WC [facility] Jul 03, 2024 12:00 AM Laboratory - Blood Bank Order TYPE & SCREEN - LAB BLOOD WC [facility] Jul 16, 2024 12:00 AM Laboratory - Chemistry Order CBC BLOOD SP ONCE [facility] Jul 17, 2024 12:00 AM Laboratory - Chemistry Order BASIC METABOLIC PANEL+MG PLASMA SP ONCE [facility] Lab Results: +/- [...] - Unit Interpretation Reference Range Comment Jul 04, 2024 07:17 AM [facility] BASIC METABOLIC PANEL+MG Specimen Type: PLASMA No comment entered. Ordering Provider: GABINO CAMERON Report Released Date/Time: Jul 03, 2024 06:31 PM Reporting Lab: [facility] [address] Performing Lab: [facility] [address] CREATININE 0.7 mg/dL 0.7-1.2 UREA NITROGEN 16 mg/dL 8-26 GLUCOSE 129 mg/dL H 70-100 SODIUM 137 mmol/L 136-145 POTASSIUM 3.7 mmol/L 3.5-5.1 CHLORIDE 107 mmol/L 98-107 CO2 22 mmol/L 22-29 CALCIUM 9.0 mg/dL 8.4-10.2 MAGNESIUM 1.9 mg/dL 1.6-2.6 ANION GAP 8 mmol/L 5-15 .CREAT EGFR(CKD-EPI) >90 >60 Jul 04, 2024 07:17 AM [facility] PHOSPHORUS Specimen Type: PLASMA No comment entered. Ordering Provider: GABINO CAMERON Report Released Date/Time: Jul 03, 2024 06:31 PM Reporting Lab: [facility] [phone] Performing Lab: [facility] [address] PHOSPHORUS 2.8 mg/dL 2.3-4.3 Jul 04, 2024 07:16 AM [facility] CBC Specimen Type: BLOOD No comment entered. Ordering Provider: GABINO CAMERON Report Released Date/Time: Jul 03, 2024 06:31 PM Reporting Lab: [facility] [address] Performing Lab: [facility] [address] WBC 20.6 H 4.0-11.0 RBC 4.63 4.60-6.20 HGB 14.2 g/dL 13.5-17.9 HCT 43.4 41.0-54.0 MCV 93.7 fL 80.0-100.0 MCH 30.7 pg 27.0-33.0 MCHC 32.7 g/dL 32.0-37.5 PLT 329 150-400 MPV 10.4 fL 9.1-13.0 RDW 13.8 11.5-14.5 Jul 04, 2024 07:16 AM [facility] CBC & DIFF Specimen Type: BLOOD Comment: Manual Differential Performed Ordering Provider: GABINO CAMERON Report Released Date/Time: Jul 03, 2024 06:31 PM Reporting Lab: [facility] [address] Performing Lab: [facility] [address] WBC 20.6 H 4.0-11.0 RBC 4.63 4.60-6.20 [...] MORPHOLOGY PRESENT Jul 04, 2024 07:15 AM [facility] BNP Specimen Type: PLASMA No comment entered. Ordering Provider: GABINO CAMERON Report Released Date/Time: Jul 03, 2024 06:31 PM Reporting Lab: [facility] [address] Performing Lab: [facility] [address] BNP 292 pg/mL H <99 Jul 03, 2024 10:32 PM [facility] FINGERSTICK GLUCOSE Specimen Type: BLOOD Comment: Save Result Nurse Notified Ordering Provider: KATELYNN PERSON Report Released Date/Time: Jul 03, 2024 10:50 PM Reporting Lab: [facility] [address] Performing Lab: [facility] [address] FINGERSTICK GLUCOSE 126 mg/dL H 70-100 Jul 03, 2024 05:33 PM [facility] FINGERSTICK GLUCOSE Specimen Type: BLOOD Comment: Save Result Nurse Notified Ordering Provider: KATELYNN PERSON Report Released Date/Time: Jul 03, 2024 05:46 PM Reporting Lab: [facility] [address] Performing Lab: [facility] [address] FINGERSTICK GLUCOSE 141 mg/dL H 70-100 Jul 03, 2024 02:31 PM [facility] POC ABG/ELECTROLYTES Specimen Type: ARTERIAL BLOOD Comment: FIO2 = 97% Patient Temp: 36.0 C Sample Type = ARTERIAL Ordering Provider: MAZIN ARREDONDO Report Released Date/Time: Jul 03, 2024 01:48 PM Reporting Lab: [facility] [address] Performing Lab: [facility] [address] POC PH 7.387 7.35-7.45 POC PCO2 34.4 [...] H 80.0-105.0 Jul 03, 2024 01:05 PM [facility] POC ABG/ELECTROLYTES Specimen Type: ARTERIAL BLOOD Comment: FIO2 = 53% Patient Temp: 36.2 C Sample Type = ARTERIAL Ordering Provider: MAZIN ARREDONDO Report Released Date/Time: Jul 03, 2024 01:48 PM Reporting Lab: [facility] [address] Performing Lab: [facility] [address] POC PH 7.280 L 7.35-7.45 POC PCO2 [...] mm[Hg] 80.0-105.0 Jul 03, 2024 06:15 AM [facility] URINALYSIS Specimen Type: URINE No comment entered. Ordering Provider: PALMIRA POWELL Report Released Date/Time: Jun 12, 2024 04:01 PM Reporting Lab: [facility] [address] Performing Lab: [facility] [address] URINE COLOR YELLOW SPECIFIC GRAVITY 1.031 1.003-1.03 [...] 250 NEGATIVE Jul 03, 2024 06:13 AM [facility] CBC Specimen Type: BLOOD No comment entered. Ordering Provider: PALMIRA POWELL Report Released Date/Time: Jun 12, 2024 03:59 PM Reporting Lab: [facility] [address] Performing Lab: [facility] [address] WBC 15.8 H 4.0-11.0 RBC 5.11 4.60-6.20 HGB 16.1 g/dL 13.5-17.9 HCT 49.1 41.0-54.0 MCV 96.1 fL 80.0-100.0 MCH 31.5 pg 27.0-33.0 MCHC 32.8 g/dL 32.0-37.5 PLT 357 150-400 MPV 9.8 fL 9.1-13.0 RDW 13.7 11.5-14.5 Jun 24, 2024 09:50 AM [facility] BASIC METABOLIC PANEL+MG Specimen Type: PLASMA Comment: Specimen received in Lab at: 0948 Ordering Provider: JEVON ZAZUETA Report Released Date/Time: Jun 23, 2024 06:07 PM Reporting Lab: [facility] [address] Performing Lab: [facility] [address] CREATININE 0.8 mg/dL 0.7-1.2 UREA NITROGEN 13 mg/dL 8-26 GLUCOSE 135 mg/dL H 70-100 SODIUM 135 mmol/L L 136-145 POTASSIUM 3.6 mmol/L 3.5-5.1 CHLORIDE 103 mmol/L 98-107 CO2 24 mmol/L 22-29 CALCIUM 9.2 mg/dL 8.4-10.2 MAGNESIUM 1.9 mg/dL 1.6-2.6 ANION GAP 8 mmol/L 5-15 .CREAT EGFR(CKD-EPI) >90 >60 Jun 24, 2024 09:50 AM [facility] CBC Specimen Type: BLOOD Comment: Specimen received in Lab at: 0948 Ordering Provider: JEVON ZAZUETA Report Released Date/Time: Jun 23, 2024 06:07 PM Reporting Lab: [facility] [address] Performing Lab: [facility] [address] WBC 15.5 H 4.0-11.0 RBC 4.93 4.60-6.20 HGB 15.2 g/dL 13.5-17.9 HCT 46.5 41.0-54.0 MCV 94.3 fL 80.0-100.0 MCH 30.8 pg 27.0-33.0 MCHC 32.7 g/dL 32.0-37.5 PLT 223 150-400 MPV 11.4 fL 9.1-13.0 RDW 13.9 11.5-14.5 Jun 23, 2024 07:52 AM [facility] COMPREHENSIVE METABOLIC PANEL+MG Specimen Type: PLASMA No comment entered. Ordering Provider: JEVON ZAZUETA Report Released Date/Time: Jun 22, 2024 05:51 PM Reporting Lab: [facility] [address] Performing Lab: [facility] [address] CREATININE 0.7 mg/dL 0.7-1.2 UREA NITROGEN 16 [...] >90 >60 Jun 23, 2024 07:52 AM [facility] CBC & DIFF Specimen Type: BLOOD Comment: Automated Differential Performed Ordering Provider: JEVON ZAZUETA Report Released Date/Time: Jun 22, 2024 05:51 PM Reporting Lab: [facility] [address] Performing Lab: [facility] [address] WBC 14.9 H 4.0-11.0 RBC 5.09 4.60-6.20 [...] 0.1 0.0-0.1 Jun 22, 2024 06:10 PM [facility] CBC Specimen Type: BLOOD No comment entered. Ordering Provider: JEVON ZAUZETA Report Released Date/Time: Jun 22, 2024 05:51 PM Reporting Lab: [facility] [address] Performing Lab: [facility] [address] WBC 16.9 H 4.0-11.0 RBC 5.28 4.60-6.20 HGB 16.9 g/dL 13.5-17.9 HCT 50.4 41.0-54.0 MCV 95.5 fL 80.0-100.0 MCH 32.0 pg 27.0-33.0 MCHC 33.5 g/dL 32.0-37.5 PLT 223 150-400 MPV 10.9 fL 9.1-13.0 RDW 14.0 11.5-14.5 Jun 22, 2024 06:10 PM [facility] COMPREHENSIVE METABOLIC PANEL+MG Specimen Type: PLASMA No comment entered. Ordering Provider: JEVON ZAZUETA Report Released Date/Time: Jun 22, 2024 05:51 PM Reporting Lab: [facility] [address] Performing Lab: [facility] [address] CREATININE 0.7 mg/dL 0.7-1.2 UREA NITROGEN 17 [...] >90 >60 Jun 21, 2024 06:48 PM [facility] URINALYSIS Specimen Type: URINE No comment entered. Ordering Provider: DELIA MARTINEZ Report Released Date/Time: Jun 21, 2024 05:45 PM Reporting Lab: [facility] [address] Performing Lab: [facility] [address] URINE COLOR YELLOW SPECIFIC GRAVITY 1.041 H [...] 500 NEGATIVE Jun 21, 2024 05:34 PM [facility] POC CREATININE Specimen Type: BLOOD No comment entered. Ordering Provider: DELIA MARTINEZ Report Released Date/Time: Jun 21, 2024 06:07 PM Reporting Lab: [facility] [address] Performing Lab: [facility] [address] POC CREATININE 1.1 mg/dL 0.6-1.3 Jun 21, 2024 05:30 PM [facility] POC ABG/LACTATE Specimen Type: VENOUS BLOOD No comment entered. Ordering Provider: DELIA MARTINEZ Report Released Date/Time: Jun 21, 2024 06:07 PM Reporting Lab: [facility] [address] Performing Lab: [facility] [address] POC PH 7.470 H 7.31-7.41 POC PCO2 31.2 mm[Hg] L 41.00-51 .0 0 POC PO2 46 mm[Hg] H 35.0-40.0 POC TCO2 24 mmol/L 24.0-29.0 POC HCO3 22.7 mmol/L L 23.0-28.0 POC BE ECT -1 mmol/L POC SO2 85 H 70-75 POC LACTATE 1.85 mmol/L 0.90-1.70 Jun 21, 2024 05:24 PM [facility] PROTHROMBIN TIME/INR Specimen Type: PLASMA No comment entered. Ordering Provider: DELIA MARTINEZ Report Released Date/Time: Jun 21, 2024 05:30 PM Reporting Lab: [facility] [address] Performing Lab: [facility] [address] .INR 1.2 H 0.8-1.1 .PT 13.9 s H 9.4-12.5 Jun 21, 2024 05:24 PM [facility] LIPASE Specimen Type: PLASMA No comment entered. Ordering Provider: DELIA MARTINEZ Report Released Date/Time: Jun 21, 2024 05:30 PM Reporting Lab: [facility] [address] Performing Lab: [facility] [address] LIPASE 32 U/L <60 Jun 21, 2024 05:24 PM [facility] EXTRA GOLD GEL TUBE Specimen Type: SERUM No comment entered. Ordering Provider: DELIA MARTINEZ Report Released Date/Time: Jun 21, 2024 05:41 PM Reporting Lab: [facility] [address] Performing Lab: [facility] [address] EXTRA GOLD GEL TUBE RECEIVED Jun 21, 2024 05:24 PM [facility] COMPREHENSIVE METABOLIC PANEL+MG Specimen Type: PLASMA No comment entered. Ordering Provider: DELIA MARTINEZ Report Released Date/Time: Jun 21, 2024 05:30 PM Reporting Lab: [facility] [address] Performing Lab: [facility] [address] CREATININE 0.9 mg/dL 0.7-1.2 UREA NITROGEN 29 [...] mg/dL <0.5 Jun 21, 2024 05:24 PM [facility] CBC & DIFF Specimen Type: BLOOD Comment: Manual Differential Performed Ordering Provider: DELIA MARTINEZ Report Released Date/Time: Jun 21, 2024 05:30 PM Reporting Lab: [facility] [address] Performing Lab: [facility] [address] WBC 21.3 H 4.0-11.0 RBC 5.48 4.60-6.20 [...] MORPHOLOGY PRESENT Jun 08, 2024 10:59 AM [facility] PROTHROMBIN TIME/INR Specimen Type: PLASMA No comment entered. Ordering Provider: PALMIRA POWELL Report Released Date/Time: May 28, 2024 09:02 AM Reporting Lab: [facility] [address] Performing Lab: [facility] [address] .INR 1.0 0.8-1.1 .PT 11.8 s 9.4-12.5 Jun 08, 2024 10:59 AM [facility] CBC Specimen Type: BLOOD No comment entered. Ordering Provider: PALMIRA POWELL Report Released Date/Time: May 28, 2024 09:02 AM Reporting Lab: [facility] [address] Performing Lab: [facility] [address] WBC 16.1 H 4.0-11.0 RBC 5.02 4.60-6.20 HGB 16.0 g/dL 13.5-17.9 HCT 47.1 41.0-54.0 MCV 93.8 fL 80.0-100.0 MCH 31.9 pg 27.0-33.0 MCHC 34.0 g/dL 32.0-37.5 PLT 228 150-400 MPV 10.3 fL 9.1-13.0 RDW 14.6 H 11.5-14.5 Jun 08, 2024 10:59 AM [facility] HEMOGLOBIN A1C Specimen Type: BLOOD Comment: Values [...] May 28, 2024 09:02 AM Reporting Lab: [facility] [address] Performing Lab: [facility] [address] HEMOGLOBIN A1C 4.9 4.0-6.0 Jun 08, 2024 10:59 AM [facility] BASIC METABOLIC PANEL+MG Specimen Type: PLASMA No comment entered. Ordering Provider: PALMIRA POWELL Report Released Date/Time: May 28, 2024 09:02 AM Reporting Lab: [facility] [address] Performing Lab: [facility] [address] CREATININE 0.9 mg/dL 0.7-1.2 UREA NITROGEN 15 mg/dL 8-26 GLUCOSE 93 mg/dL 70-100 SODIUM 139 mmol/L 136-145 POTASSIUM 3.7 mmol/L 3.5-5.1 CHLORIDE 106 mmol/L 98-107 CO2 25 mmol/L 22-29 CALCIUM 9.8 mg/dL 8.4-10.2 MAGNESIUM 2.1 mg/dL 1.6-2.6 ANION GAP 8 mmol/L 5-15 .CREAT EGFR(CKD-EPI) >90 >60 May 21, 2024 06:59 AM [facility] BASIC METABOLIC PANEL+MG Specimen Type: PLASMA No comment entered. Ordering Provider: GOLDIE BENITEZ Report Released Date/Time: May 15, 2024 08:34 AM Reporting Lab: [facility] [address] Performing Lab: [facility] [address] CREATININE 0.9 mg/dL 0.7-1.2 UREA NITROGEN 18 mg/dL 8-26 GLUCOSE 126 mg/dL H 70-100 SODIUM 138 mmol/L 136-145 POTASSIUM 4.0 mmol/L 3.5-5.1 CHLORIDE 105 mmol/L 98-107 CO2 24 mmol/L 22-29 CALCIUM 9.8 mg/dL 8.4-10.2 MAGNESIUM 2.0 mg/dL 1.6-2.6 ANION GAP 9 mmol/L 5-15 .CREAT EGFR(CKD-EPI) >90 >60 Social History: Smoking Status (Most current) and [...] 15, 2024 08:30 AM [facility]BACCO [facility] YRS OR MORE [facility] May 06, 2023 11:30 AM VA-TOBACCO FORMER USER [facility] May 06, 2023 11:30 AM VA-TOBACCO QUIT [...] this document. The data comes from all [place] facilities. Date Advance Directives Provider Source Mar 23, 2016 CLINICAL WARNING [facility] Radiology Reports: [...] ABSCESS DRAIN PLACEMENT PERITONEAL (P): FLACA WEAVER [id number] -1950 M Exm Date: JUN 22, 2024@11:49 Req Phys: ANGELA HOLDEN [facility] Loc: [facility]/06-22-2024@17:14 Img Loc: INTERVENTIONAL RADIOLOGY Service: [place] [place] [address] (Case [id number] COMPLETE) IR PERITONEAL/RETROPERITONEAL PER(ANI Detailed) CPT:04732 Reason for Study: diverticulitis with abscess (Case [id number] COMPLETE) IR MOD SEDATION 10-22 MIN (ANI Detailed) CPT:06679 Clinical History: IS NOT under investigation for COVID-19 or is COVID-19 negative 73 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 please place abscess drain. Contact number for responsible provider who can be reached for any questions or notifications of critical findings: [phone] n/a LAST CREATININE 0.9 (06/21/24) Report Status: Verified Date Reported: JUN 22, 2024 Date Verified: JUN 22, 2024 Fermenter E-Sig:/ES/LISA PENDLETON MD Report: PROCEDURES: Placement of [...] obtained. A pre-procedural Time-Out was performed per [facility] policy. The patient was placed in the supine position on the CT table. Preprocedural scan performed. The suprapubic region/lower abdominal wall was sterilely prepped and draped in the usual fashion.1% lidocaine without epinephrine was used for local anesthesia. Using real-time CT fluoroscopy, a 5 Hungarian [place] SPARKesis catheter was advanced into the collection in the left pelvis. A wire was coiled in the collection. The tract into the collection was dilated to accommodate the 12 Hungarian locking pigtail drainage catheter. There was return [...] Primary Interpreting Staff: LISA PENDLETON MD, RADIOLOGIST (Fermenter) /JRT LISA PENDLETON [facility] Jun 22, 2024 11:[address] NEEDLE PLACEMENT (P): MEGFLACA YAMIL [id number] -1950 M Exm Date: JUN 22, 2024@11:48 Req Phys: ANGELA HOLDEN Loc: [facility]06-22-2024@17:14 Img Loc: CT IMAGING Service: [place] [address] (Case [id number] COMPLETE) CT SCAN FOR NEEDLE PLACEMENT (CT Detailed) CPT:23279 Reason for Study: l pelvic abscess drain Clinical History: Report Status: Verified Date Reported: JUN 22, 2024 Date Verified: JUN 22, 2024 Fermenter E-Sig:/ES/LISA PENDLETON MD Report: PROCEDURES: Placement of [...] obtained. A pre-procedural Time-Out was performed per [facility] policy. The patient was placed in the supine position on the CT table. Preprocedural scan performed. The suprapubic region/lower abdominal wall was sterilely prepped and draped in the usual fashion.1% lidocaine without epinephrine was used for local anesthesia. Using real-time CT fluoroscopy, a 5 Hungarian [place] SPARKesis catheter was advanced into the collection in the left pelvis. A wire was coiled in the collection. The tract into the collection was dilated to accommodate the 12 Hungarian locking pigtail drainage catheter. There was return [...] Primary Interpreting Staff: LISA PENDLETON MD, RADIOLOGIST (Fermenter) /JRT LISA PENDLETON [facility] Jun 21, 2024 06:[address] (AP) ABDOMEN/PELVIS (P): FLACA WEAVER [id number] -1950 M Ex Date: JUN 21, 2024@18:09 Req Phys: DELIA MARTINEZ Loc: [facility] EMERGENCY DEPT WALK-IN (Re Im Loc: CT IMAGING Service: [place] [address] (Case [id number] COMPLETE) CT (AP) ABDOMEN/PELVIS W CONTRAST(CT Detailed) CPT:34375 Contrast Media : Non-ionic Iodinated Reason for [...] PLASMA .CREAT EGFR(CKD-E >90 Ref: >=60 Allergies: ([place] only) TERAZOSIN (Mar 13, 2015) Defer to [...] 21, 2024 Date Verified: JUN 21, 2024 Fermenter E-Sig:/ALEXI/CARLOS A CUNNINGHAM DO Report: EXAMINATION: CT [...] Interpreting Staff: CARLOS A CUNNINGHAM DO, RADIOLOGIST (Fermenter) /KMCARLOS A DONALD [facility] May 25, 2024 09:00 AM IR FISTULOGRAM OR SINOGRAM : FLACA WEAVER [id number] -1950 Ex Date: MAY 25, 2024@09:00 Req Phys: AMINTA ESCALONA Loc: [facility] XRAY INTERVENTIONAL RADIO Img Loc: INTERVENTIONAL RADIOLOGY Service: [place] [address] (Case [id number] COMPLETE) IR FISTULOGRAM OR SINOGRAM (ANI Detailed) CPT:57928 Contrast Media : unspecified contrast media Reason for Study: s/p drain placement for diverticular abscess- assess for drain Clinical History: [place] IS NOT under investigation for COVID-19 or [...] 25, 2024 Date Verified: MAY 25, 2024 Fermenter E-Sig:/ES/DAVID BURNS MD Report: PROCEDURES 05/25/2024 9:48 [...] Primary Interpreting Staff: DAVID BURNS MD, RADIOLOGIST (Fermenter) /[facility] DAVID BURNS [facility] May 25, 2024 08:[address] (AP) ABDOMEN/PELVIS (P): FLACA WEAVER [id number] -1950 M Exm Date: MAY 25, 2024@08:23 Req Phys: DAVID BURNS Loc: [facility] X[facility] INTERVENTIONAL RADIO Img Loc: CT IMAGING Service: [place] [address] (Case [id number] COMPLETE) CT (AP) ABDOMEN/PELVIS W/O CONTRA(CT Detailed) CPT:92368 Reason for Study: assess abscess and possible [...] PLASMA .CREAT EGFR(CKD-E >90 Ref: >=60 Allergies: ([place] only) TERAZOSIN (Mar 13, 2015) Report Status: Verified Date Reported: MAY 25, 2024 Date Verified: MAY 25, 2024 Fermenter E-Sig:/ES/JESSENIA GOODMAN MD Report: EXAM: CT abdomen and pelvis without intravenous contrast. 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 TECHNIQUE: Helical acquisition of image data was performed for the abdomen and pelvis without intravenous contrast. Dose: 512.57 mGy*cm COMPARISON: CT abdomen pelvis with contrast 05/11/[address] abdomen pelvis 04/23/2024.; CT abdomen pelvis 05/05/2020 FINDINGS: PLASTIC BUBBLE PACKER: Pigtail catheter projecting over the left hemipelvis [...] Primary Interpreting Staff: JESSENIA GOODMAN MD, RADIOLOGIST (Fermenter) Primary Interpreting Resident: YOHANNES MELO DO, BUYER INTERN /JESSENIA LOUIE [facility] May 11, 2024 12:39 PM IR FISTULOGRAM / SINOGRAM (P): FLACA WEAVER YAMIL [id number] -1950 M Exm Date: MAY 11, 2024@12:39 Req Phys: PALMIRA POWELL Loc: [facility] C/R FOLLOW-UP CLINIC (Req' Img Loc: INTERVENTIONAL RADIOLOGY Service: [place] [address] (Case [id number] COMPLETE) IR INJECTION FOR SINOGRAM DIAGNOS(ANI Detailed) CPT:21133 Contrast Media : Non-ionic Iodinated Reason for Study: s/p drain placement for diverticular abscess- assess for drain (Case [id number] COMPLETE) IR FISTULOGRAM OR SINOGRAM (ANI Detailed) CPT:93422 Contrast Media : unspecified contrast media (Case [id number] COMPLETE) IR DRAINAGE CATHETER SUPPLY (ANI Detailed) CPT:C1729 Clinical History: [place] IS NOT under investigation for COVID-19 or is COVID-19 negative s/p drain placement for diverticular abscess- assess for drain removal Contact number for responsible provider who can be reached for any questions or notifications of critical findings: [phone] Palmira Powell MD LAST CREATININE 0.7 (05/04/24) Report Status: Verified Date Reported: MAY 11, 2024 Date Verified: MAY 11, 2024 Fermenter E-Sig:/ES/AMINTA ESCALONA MD Report: PROCEDURES Abdominal drain [...] Interpreting Staff: AMINTA ESCALONA MD, INTERVENTIONAL RADIOLOGIST (Fermenter) /AMINTA VELAZCO [facility] May 11, 2024 11:[address] (AP) ABDOMEN/PELVIS (P): MEGFLACA [id number] -1950 M Exm Date: MAY 11, 2024@11:40 Req Phys: PALMIRA POWELL Loc: [facility] C/R FOLLOW-UP CLINIC (Req' Img Loc: CT IMAGING Service: [place] [address] (Case [id number] COMPLETE) CT (AP) ABDOMEN/PELVIS W CONTRAST(CT Detailed) CPT:73896 Contrast Media : Non-ionic Iodinated Reason for [...] any questions or notifications of critical findings: [phone] Palmira Powell MD LAST 3: Collection DT [...] PLASMA .CREAT EGFR(CKD-E >90 Ref: >=60 Allergies: ([place] only) TERAZOSIN (Mar 13, 2015) Report Status: Verified Date Reported: MAY 11, 2024 Date Verified: MAY 11, 2024 Fermenter E-Sig:/ES/LISA PENDLETON MD Report: CT abdomen and [...] Primary Interpreting Staff: LISA PENDLETON MD, RADIOLOGIST (Fermenter) /LISA CARDONA [facility] Pathology Reports: +/- [...] PM LR MICROBIOLOGY RE PORT: Reporting Lab: [facility] [CLIA# [id number]] [place] [address] Accession [UID]: [id number] [[id number]] Received: Jun 22, 2024@13:38 Collection sample: FLUID Collection date: Jun 22, 2024 13:15 Provider: ANGELA HOLDEN Comment on specimen: LLQ ABSCESS, RECEIVED IN ANAEROBIC TRANSPORT VIAL Test(s) ordered: GRAM STAIN.................... completed: Jun 22, 2024 15:03 CULTURE & SUSCEPTIBILITY...... completed: Jun 25, 2024 * BACTERIOLOGY FINAL REPORT => Jun 25, 2024 10:56 TECH CODE: [id number] GRAM STAIN: DIRECT SMEAR of specimen before [...] Performed By: [facility] [CLIA# [id number]] [place] [address] [facility] Jun 22, 2024 01:15 PM LR MICROBIOLOGY RE PORT: Reporting Lab: [facility] [CLIA# [id number]] [place] [address] Accession [UID]: [id number] [[id number]] Received: Jun 22, 2024@13:38 Collection sample: FLUID Collection date: Jun 22, 2024 13:15 Provider: ANGELA HOLDEN Comment on specimen: LLQ ABSCESS, RECEIVED IN ANAEROBIC TRANSPORT VIAL Test(s) ordered: ANAEROBIC CULTURE............. completed: Jun 28, 2024 * BACTERIOLOGY FINAL REPORT => Jun 28, 2024 10:08 TECH CODE: [id number] CULTURE RESULTS: HEAVY GROWTH MIXED ANAEROBES Comment: [...] Performed By: [facility] [CLIA# [id number]] [place] [address] [facility] Jun 21, 2024 06:12 PM LR MICROBIOLOGY RE PORT: Reporting Lab: [facility] [CLIA# [id number]] [place] [address] Accession [UID]: [id number] [[id number]] Received: Jun 21, 2024@18:12 Collection sample: BLOOD [...] Report Performed By: [facility] [IA# [id number]] [place] [address] [facility] Jun 21, 2024 06:11 PM LR MICROBIOLOGY RE PORT: Reporting Lab: [facility] [IA# [id number]] [place] [address] Accession [UID]: [id number] [[id number]] Received: Jun 21, 2024@18:11 Collection sample: BLOOD [...] Performed By: [facility] [CLIA# [id number]] [place] [address] [facility] Jun 08, 2024 11:00 AM LR MICROBIOLOGY RE PORT: Reporting Lab: [facility] [IA# [id number]] [place] [address] Accession [UID]: [id number] [[id number]] Received: Jun 08, 2024@11:00 Collection sample: URINE Collection date: Jun 08, 2024 11:00 Provider: PALMIRA POWELL Comment on specimen: urine Test(s) ordered: CULTURE & SUSCEPTIBILITY...... completed: Jun 09, 2024 * BACTERIOLOGY FINAL REPORT => Jun 09, 2024 19:12 TECH CODE: [id number] CULTURE RESULTS: ESCHERICHIA COLI - Quantity: >100,000 [...] Performed By: [facility] [CLIA# [id number]] [place] [address] [facility] Encounter Notes: All associated encounter notes This section contains the clinical notes associated to the Encounter. Date/Time Encounter Note(s) Provider Source Jun 04, 2024 09:32 AM PHARMACY NOTE: LOCAL TITLE: PHARMACOTHERAPY-CLINICAL PHARMACY NOTE STANDARD TITLE: PHARMACY NOTE DATE OF NOTE: JUN 04, 2024@09:32 ENTRY DATE: JUN 04, 2024@09:32:16 AUTHOR: MARTINE NG COSIGNER: URGENCY: STATUS: COMPLETED Visit Type: Phone MEGFLACA is a 73 YO MALE followed by [facility] for medication management. SUBJECTIVE: - Patient contacted for initial visit for HTN - Last clinic reading BP was at goal - Doesn't have BP readings today, but reports they've been good and he thinks under 130/80 - Did an abbreviated visit as he didn't have much time to talk and this was a reschedule from 05/21 when he also didn't have readings or much time to talk - Doesn't have any concerns/questions at this time ROS: (-) chest pain (-) muscle pain/cramps (-) hypotension symptoms (-) HTN symptoms Adherence to medications: unknown Active problems - Computerized Problem List is [...] . No additional CRC surveillance recommended by warehouse consultant. 9. Decreased vitamin D - 02.24.2017 [...] - By 02.13.[address] 03.14.2020 OSH(ED [place], [place]): Pt. Declined Admission. 03.14.2020 CT with Mild Sigmoid diverticulitis. 04.23.2020 ED([facility]): Declined admission. 17. 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 18. Ex-tobacco user 19. Impaired Fasting Glucose (SCT [id number]) - 02.26.2014 A1c 5.8%. 20. 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 05.05.[address]: 1.5cm L Adrenal Nodule. 07.24.2021 CT completed. 21. Abdominal aortic aneurysm - 05.05.[address]: O.9cm thrombosed saccular aneurysm to distal abdominal aorta. 22. Pancreatic cyst - 05.05.[address]: 0.7cm low-attenuation lesion tail of pancreas. Annual surveillance x 5 yr suggested for lesions < 1.5cm. 07.24.2021 CT completed. 23. Multiple nodules of lung - 11.11.2020 Initial LDCT. 11.24.2021 LDCT completed. 12 month surveillance recommended. 24. Hiatal hernia 25. Shoulder Pain (SCT [id number]) 26. Trigger finger 27. [facility] Primary Care - Community Care Primary: Dr. Cathi Simeon, [facility], [place] [address]. OBJECTIVE: ALLERGIES/ADR: TERAZOSIN (Mar 13, 2015) MEDICATION RECONCILIATION: Active and Recently Outpatient Medications (excluding Supplies): Active Outpatient Medications Status 1) ACETAMINOPHEN 325MG TAB TAKE TWO TABLETS BY MOUTH ACTIVE EVERY 6 HOURS NEEDED FOR PAIN 2) ATORVASTATIN CALCIUM 40MG TAB TAKE ONE-HALF TABLET BY ACTIVE MOUTH AT BEDTIME FOR CHOLESTEROL 3) COLON ELECTROLYTE LAVAGE PWD FOR SOLN TAKE 1 ACTIVE CONTAINER (4 LITERS) BY MOUTH ONCE PRE-OP FOR COLO-RECTAL SURGERY - INSTRUCTION SHEET MAILED FROM CLINIC 4) EMPAGLIFLOZIN 25MG TAB TAKE ONE-HALF TABLET BY MOUTH ACTIVE EVERY DAY 5) FUROSEMIDE 20MG TAB TAKE ONE TABLET BY MOUTH EVERY ACTIVE (S) DAY FOR EXCESS FLUID 6) HCTZ 12.5/LISINOPRIL 10MG TAB TAKE ONE HALF TABLET BY Confirmed MOUTH EVERY DAY FOR BLOOD PRESSURE 7) ISOSORBIDE MONONITRATE 30MG SA TAB TAKE ONE TABLET BY ACTIVE MOUTH EVERY DAY FOR CHEST PAIN 8) METRONIDAZOLE 500MG TAB TAKE ONE TABLET BY MOUTH ACTIVE THREE TIMES A DAY - TAKE AT 1PM, 2PM, AND 11PM THE DAY BEFORE PROCEDURE ALONG WITH NEOMYCIN 9) NEOMYCIN SULFATE 500MG TAB TAKE TWO TABLETS BY MOUTH ACTIVE THREE TIMES A DAY PREOP AT 1PM, 2PM AND 11PM ON THE DAY BEFORE COLORECTAL SURGERY (TAKE ALONG WITH METRONIDAZOLE) 10) NITROGLYCERIN 0.4MG SL TAB DISSOLVE ONE TABLET UNDER ACTIVE THE TONGUE THREE TIMES A DAY NEEDED CHEST PAIN FOR CHEST PAIN * MAY REPEAT EVERY 5 MINUTES--NO MORE THAN 3 TOTAL 11) PSYLLIUM ORAL PWD TAKE 2 TEASPOONSFUL BY MOUTH EVERY ACTIVE DAY FOR CONSTIPATION 12) SODIUM CHLORIDE 0.9% PF INJ SYR 10ML INJECT 10 ML ACTIVE TOPICALLY DIRECTED FOR IRRIGATION FOR WOUND CLEANSING 13) SPIRONOLACTONE 25MG TAB TAKE ONE-HALF TABLET BY MOUTH Confirmed EVERY DAY FOR BLOOD PRESSURE Inactive Outpatient Medications Status 1) AMOXICILLIN 875/CLAV K 125MG TAB TAKE 1 TABLET BY MOUTH TWICE A DAY 2) PHENAZOPYRIDINE HCL 100MG TAB TAKE TWO TABLETS BY MOUTH THREE TIMES A DAY NEEDED FOR BLADDER PAIN 15 Total Medications Vitals: Temperature: 97.4 F [36.3 C] (05/28/2024 08:09) Blood Pressure: 119/58 (05/28/2024 08:09) Pulse: 42 (05/28/2024 08:09) Respiration: 17 (05/15/2024 08:20) Pain: 0 (05/28/2024 08:09) Height: 71 in [180.3 cm] (05/15/2024 08:20) Weight: 210 lb [95.25 kg] (05/15/2024 08:20) BMI: 29.4 LABS: Basic Metabolic Panel SODIUM 138 (05/21/24) POTASSIUM 4.0 (05/21/24) CREATININE 0.9 (05/21/24) UREA NITROGEN 18 (05/21/24) GLUCOSE 126 H (05/21/24) CO2 24 (05/21/24) CHLORIDE 105 (05/21/24) EGFR (04/01) 07/10/2021@0641 74 CREATININE EGFR (CKD-EPI) 05/21/2024@0659 >90 MAGNESIUM 2.0 (05/21/24) Collection DT Specimen Test Name Result Units Ref Range 05/21/2024 06:59 PLASMA CREATININE 0.9 mg/dL 0.7 - 1.2 05/04/2024 08:36 PLASMA CREATININE 0.7 mg/dL 0.7 - 1.2 04/26/2024 05:30 PLASMA CREATININE 0.7 mg/dL 0.7 - 1.2 05/21/2024 06:59 PLASMA .CREAT EGFR(CKD-E >90 Ref: >=60 05/04/2024 08:36 PLASMA .CREAT EGFR(CKD-E >90 Ref: >=60 04/26/2024 05:30 PLASMA .CREAT EGFR(CKD-E >90 Ref: >=60 ASSESSMENT/PLAN: #HTN - Goal <140/90 mmHg per JNC8 guidelines; <130/80mmHg per 2017 ACC/AHA guidelines if can tolerate without hypotension. Last clinic reading at goal. Home readings reported to be at goal. No changes today and no additional f/u planned. PharmD is available in the future if patient desires case management and agreeable to having readings available at f/u. As on small doses of 3 anti- HTN could consider maximizing the hctz/lisinopril and stopping spironolactone in the future if patient desires less medications. - Continue hctz 12.5mg/lisinopril 10mg tab one-half tablet daily - Continue spironolactone 25mg tab one-half tablet daily #Disease-Specific Med Rec: Completed today #Labs: up to date - Educated vet on indication/risks/benefits of new/changed medication. - Education provided on therapeutic nonpharmacologic management to achieve goals. - Vet advised of recent labs. - verbalized understanding to all plans discussed today. Questions were answered to vet's satisfaction. Time spent: 7 minutes RTC: None with PharmGwyn /alexi/ MARTINE NG PHARMD, BCACP CLINICAL BRAKE PRESS OPERATOR Signed: 06/04/2024 11:49 MARTINE NG [facility]
--- OUTSIDE RECORDS SUMMARY | 2024-07-16 07:27 | XMS_ITS | Encounter Summary ---
Author Name [facility] [facility] [place] Address [address] [place] [address] Care Team Providers Care Sewing Department Supervisor Name Role Phone JATINDER CABRERA Primary [...] PART A Sep 29, 2016 PART A [id number] JUDY WEAVER PATIENT Selected Encounter This section includes the information on record at [place] for the Encounter. Date/Time Encounter Type Encounter Description Reason Pro vider Source Jun 08, 2024 10:43 AM Outpatient Encounter EVENT (HISTORICAL) IHE Encounter [...] 2024 04:48 PM AMBULATORY - MEDICINE [facility] Jun 21, 2024 05:45 PM AMBULATORY - NONE [facility] Jun 27, 2024 07:00 AM [facility] Jun 27, 2024 07:30 AM AMBULATORY - MEDICINE [facility] Jun 27, 2024 08:00 AM AMBULATORY - MEDICINE [facility] Jul 03, 2024 05:55 AM AMBULATORY - NONE [facility] Jul 13, 2024 08:15 AM AMBULATORY - NONE [facility] Active, Pending, and Scheduled [...] SUSCEPTIBILITY ~Culture sample from JUAN drain output [facility] Apr 26, 2024 10:10 AM Laboratory - Microbiology Order GRAM STAIN WOUND OTHER WC ONCE ~For Test: GRAM STAIN ~JUAN drain culture/gram stain [facility] May 28, 2024 12:00 AM Laboratory - Blood Bank Order TYPE & SCREEN - LAB BLOOD SP [facility] Jun 08, 2024 09:57 AM Laboratory - Chemistry Order URINALYSIS URINE WC ONCE [facility] Jun 12, 2024 12:00 AM Laboratory - Chemistry Order BNP PLASMA SP ONCE [facility] Jun 21, 2024 05:45 PM Laboratory - Blood Bank Order TYPE & SCREEN - LAB BLOOD WC [facility] Jul 03, 2024 12:00 AM Laboratory - Blood Bank Order TYPE & SCREEN - LAB BLOOD WC [facility] Jul 16, 2024 12:00 AM Laboratory - Chemistry Order CBC BLOOD SP ONCE [facility] Jul 17, 2024 12:00 AM Laboratory - Chemistry Order BASIC METABOLIC PANEL+MG PLASMA SP ONCE [facility] Lab Results: +/- 30 days [...] Range Comment Jul 08, 2024 10:50 AM [facility] URINALYSIS Specimen Type: URINE No comment entered. Ordering Provider: KATELYNN PERSON Report Released Date/Time: Jul 08, 2024 08:41 AM Reporting Lab: [facility] [address] Performing Lab: [facility] [address] URINE COLOR YELLOW SPECIFIC GRAVITY >1.050 H [...] NEGATIVE NEGATIVE Jul 08, 2024 09:54 AM [facility] CBC Specimen Type: BLOOD Comment: Specimen received in Lab at: 0952 Ordering Provider: JUANCARLOS ECHOLS Report Released Date/Time: Jul 07, 2024 04:49 PM Reporting Lab: [facility] [address] Performing Lab: [facility] [address] WBC 17.5 H 4.0-11.0 RBC 4.88 4.60-6.20 HGB 14.9 g/dL 13.5-17.9 HCT 45.7 41.0-54.0 MCV 93.6 fL 80.0-100.0 MCH 30.5 pg 27.0-33.0 MCHC 32.6 g/dL 32.0-37.5 PLT 472 H 150-400 MPV 10.2 fL 9.1-13.0 RDW 13.7 11.5-14.5 Jul 08, 2024 09:54 AM [facility] PHOSPHORUS Specimen Type: PLASMA Comment: Specimen received in Lab at: 0952 Ordering Provider: JUANCARLOS ECHOLS Report Released Date/Time: Jul 07, 2024 04:49 PM Reporting Lab: [facility] [address] Performing Lab: [facility] [address] PHOSPHORUS 2.6 mg/dL 2.3-4.3 Jul 08, 2024 09:54 AM [facility] BASIC METABOLIC PANEL+MG Specimen Type: PLASMA Comment: Specimen received in Lab at: 0952 Ordering Provider: JUANCARLOS ECHOLS Report Released Date/Time: Jul 07, 2024 04:49 PM Reporting Lab: [facility] [address] Performing Lab: [facility] [address] CREATININE 0.9 mg/dL 0.7-1.2 UREA NITROGEN 26 mg/dL 8-26 GLUCOSE 128 mg/dL H 70-100 SODIUM 134 mmol/L L 136-145 POTASSIUM 3.4 mmol/L L 3.5-5.1 CHLORIDE 100 mmol/L 98-107 CO2 24 mmol/L 22-29 CALCIUM 9.8 mg/dL 8.4-10.2 MAGNESIUM 1.8 mg/dL 1.6-2.6 ANION GAP 10 mmol/L 5-15 .CREAT EGFR(CKD-EPI) >90 >60 Jul 07, 2024 02:00 PM [facility] C DIFF PANEL Specimen Type: FECES No comment entered. Ordering Provider: JEVON ZAZUETA Report Released Date/Time: Jul 07, 2024 12:26 PM Reporting Lab: [facility] [address] Performing Lab: [facility] [address] C DIFF TOX B GENE PCR NEGATIVE Negative Jul 07, 2024 07:41 AM [facility] PHOSPHORUS Specimen Type: PLASMA No comment entered. Ordering Provider: JEVON ZAZUETA Report Released Date/Time: Jul 06, 2024 03:44 PM Reporting Lab: [facility] [address] Performing Lab: [facility] [address] PHOSPHORUS 3.1 mg/dL 2.3-4.3 Jul 07, 2024 07:41 AM [facility] BASIC METABOLIC PANEL+MG Specimen Type: PLASMA No comment entered. Ordering Provider: JEVON ZAZUETA Report Released Date/Time: Jul 06, 2024 03:44 PM Reporting Lab: [facility] [address] Performing Lab: [facility] [address] CREATININE 0.9 mg/dL 0.7-1.2 UREA NITROGEN 20 mg/dL 8-26 GLUCOSE 157 mg/dL H 70-100 SODIUM 136 mmol/L 136-145 POTASSIUM 3.7 mmol/L 3.5-5.1 CHLORIDE 102 mmol/L 98-107 CO2 21 mmol/L L 22-29 CALCIUM 9.8 mg/dL 8.4-10.2 MAGNESIUM 1.9 mg/dL 1.6-2.6 ANION GAP 13 mmol/L 5-15 .CREAT EGFR(CKD-EPI) >90 >60 Jul 07, 2024 07:40 AM [facility] CBC Specimen Type: BLOOD No comment entered. Ordering Provider: JEVON ZAZUETA Report Released Date/Time: Jul 06, 2024 03:44 PM Reporting Lab: [facility] [address] Performing Lab: [facility] [address] WBC 21.2 H 4.0-11.0 RBC 5.09 4.60-6.20 HGB 15.9 g/dL 13.5-17.9 HCT 48.3 41.0-54.0 MCV 94.9 fL 80.0-100.0 MCH 31.2 pg 27.0-33.0 MCHC 32.9 g/dL 32.0-37.5 PLT 500 H 150-400 MPV 10.3 fL 9.1-13.0 RDW 13.6 11.5-14.5 Jul 06, 2024 07:21 AM [facility] CBC Specimen Type: BLOOD No comment entered. Ordering Provider: JEVON ZAZUETA Report Released Date/Time: Jul 05, 2024 01:22 PM Reporting Lab: [facility] [address] Performing Lab: [facility] [address] WBC 18.0 H 4.0-11.0 RBC 4.83 4.60-6.20 HGB 14.6 g/dL 13.5-17.9 HCT 45.5 41.0-54.0 MCV 94.2 fL 80.0-100.0 MCH 30.2 pg 27.0-33.0 MCHC 32.1 g/dL 32.0-37.5 PLT 368 150-400 MPV 10.4 fL 9.1-13.0 RDW 13.6 11.5-14.5 Jul 06, 2024 07:21 AM [facility] PHOSPHORUS Specimen Type: PLASMA No comment entered. Ordering Provider: JEVON ZAZUETA Report Released Date/Time: Jul 05, 2024 01:22 PM Reporting Lab: [facility] [address] Performing Lab: [facility] [address] PHOSPHORUS 3.6 mg/dL 2.3-4.3 Jul 06, 2024 07:21 AM [facility] BASIC METABOLIC PANEL+MG Specimen Type: PLASMA No comment entered. Ordering Provider: JEVON ZAZUETA Report Released Date/Time: Jul 05, 2024 01:22 PM Reporting Lab: [facility] [address] Performing Lab: [facility] [address] CREATININE 0.7 mg/dL 0.7-1.2 UREA NITROGEN 12 mg/dL 8-26 GLUCOSE 108 mg/dL H 70-100 SODIUM 138 mmol/L 136-145 POTASSIUM 3.4 mmol/L L 3.5-5.1 CHLORIDE 104 mmol/L 98-107 CO2 20 mmol/L L 22-29 CALCIUM 9.3 mg/dL 8.4-10.2 MAGNESIUM 1.9 mg/dL 1.6-2.6 ANION GAP 14 mmol/L 5-15 .CREAT EGFR(CKD-EPI) >90 >60 Jul 05, 2024 07:17 AM [facility] MAGNESIUM Specimen Type: PLASMA No comment entered. Ordering Provider: JUANCARLOS ECHOLS Report Released Date/Time: Jul 04, 2024 09:39 AM Reporting Lab: [facility] [address] Performing Lab: [facility] [address] MAGNESIUM 2.0 mg/dL 1.6-2.6 Jul 05, 2024 07:17 AM [facility] PHOSPHORUS Specimen Type: PLASMA No comment entered. Ordering Provider: JUANCARLOS ECHOLS S Report Released Date/Time: Jul 04, 2024 09:39 AM Reporting Lab: [facility] [address] Performing Lab: [facility] [address] PHOSPHORUS 2.0 mg/dL L 2.3-4.3 Jul 05, 2024 07:17 AM [facility] BASIC METABOLIC PANEL+MG Specimen Type: PLASMA No comment entered. Ordering Provider: JUANCARLOS ECHOLS S Report Released Date/Time: Jul 04, 2024 09:39 AM Reporting Lab: [facility] [address] Performing Lab: [facility] [address] CREATININE 0.7 mg/dL 0.7-1.2 UREA NITROGEN 12 mg/dL 8-26 GLUCOSE 84 mg/dL 70-100 SODIUM 135 mmol/L L 136-145 POTASSIUM 3.8 mmol/L 3.5-5.1 CHLORIDE 104 mmol/L 98-107 CO2 24 mmol/L 22-29 CALCIUM 9.3 mg/dL 8.4-10.2 MAGNESIUM 2.0 mg/dL 1.6-2.6 ANION GAP 7 mmol/L 5-15 .CREAT EGFR(CKD-EPI) >90 >60 Jul 05, 2024 07:16 AM [facility] CBC Specimen Type: BLOOD No comment entered. Ordering Provider: JUANCARLOS ECHOLS S Report Released Date/Time: Jul 04, 2024 09:39 AM Reporting Lab: [facility] [address] Performing Lab: [facility] [address] WBC 18.3 H 4.0-11.0 RBC 4.49 L 4.60-6.20 HGB 14.1 g/dL 13.5-17.9 HCT 43.4 41.0-54.0 MCV 96.7 fL 80.0-100.0 MCH 31.4 pg 27.0-33.0 MCHC 32.5 g/dL 32.0-37.5 PLT 317 150-400 MPV 10.0 fL 9.1-13.0 RDW 13.9 11.5-14.5 Jul 04, 2024 07:17 AM [facility] BASIC METABOLIC PANEL+MG Specimen Type: PLASMA No comment entered. Ordering Provider: GABINO CAMERON Report Released Date/Time: Jul 03, 2024 06:31 PM Reporting Lab: [facility] [address] Performing Lab: [facility] [address] CREATININE 0.7 mg/dL 0.7-1.2 UREA NITROGEN 16 mg/dL 8-26 GLUCOSE 129 mg/dL H 70-100 SODIUM 137 mmol/L 136-145 POTASSIUM 3.7 mmol/L 3.5-5.1 CHLORIDE 107 mmol/L 98-107 CO2 22 mmol/L 22-29 CALCIUM 9.0 mg/dL 8.4-10.2 MAGNESIUM 1.9 mg/dL 1.6-2.6 ANION GAP 8 mmol/L 5-15 .CREAT EGFR(CKD-EPI) >90 >60 Jul 04, 2024 07:17 AM [facility] PHOSPHORUS Specimen Type: PLASMA No comment entered. Ordering Provider: GABINO CAMERON Report Released Date/Time: Jul 03, 2024 06:31 PM Reporting Lab: [facility] [address] Performing Lab: [facility] [address] PHOSPHORUS 2.8 mg/dL 2.3-4.3 Jul 04, 2024 07:16 AM [facility] CBC Specimen Type: BLOOD No comment entered. Ordering Provider: GABINO CAMERON Report Released Date/Time: Jul 03, 2024 06:31 PM Reporting Lab: [facility] [address] Performing Lab: [facility] [address] WBC 20.6 H 4.0-11.0 RBC 4.63 4.60-6.20 HGB 14.2 g/dL 13.5-17.9 HCT 43.4 41.0-54.0 MCV 93.7 fL 80.0-100.0 MCH 30.7 pg 27.0-33.0 MCHC 32.7 g/dL 32.0-37.5 PLT 329 150-400 MPV 10.4 fL 9.1-13.0 RDW 13.8 11.5-14.5 Jul 04, 2024 07:16 AM [facility] CBC & DIFF Specimen Type: BLOOD Comment: Manual Differential Performed Ordering Provider: GABINO CAMERON Report Released Date/Time: Jul 03, 2024 06:31 PM Reporting Lab: [facility] [address] Performing Lab: [facility] [address] WBC 20.6 H 4.0-11.0 RBC 4.63 4.60-6.20 [...] MORPHOLOGY PRESENT Jul 04, 2024 07:15 AM [facility] BNP Specimen Type: PLASMA No comment entered. Ordering Provider: GABINO CAMERON Report Released Date/Time: Jul 03, 2024 06:31 PM Reporting Lab: [facility] [address] Performing Lab: [facility] [address] BNP 292 pg/mL H <99 Jul 03, 2024 10:32 PM [facility] FINGERSTICK GLUCOSE Specimen Type: BLOOD Comment: Save Result Nurse Notified Ordering Provider: KATELYNN PERSON Report Released Date/Time: Jul 03, 2024 10:50 PM Reporting Lab: [facility] [address] Performing Lab: [facility] [address] FINGERSTICK GLUCOSE 126 mg/dL H 70-100 Jul 03, 2024 05:33 PM [facility] FINGERSTICK GLUCOSE Specimen Type: BLOOD Comment: Save Result Nurse Notified Ordering Provider: KATELYNN PERSNO Report Released Date/Time: Jul 03, 2024 05:46 PM Reporting Lab: [facility] [address] Performing Lab: [facility] [address] FINGERSTICK GLUCOSE 141 mg/dL H 70-100 Jul 03, 2024 02:31 PM [facility] POC ABG/ELECTROLYTES Specimen Type: ARTERIAL BLOOD Comment: FIO2 = 97% Patient Temp: 36.0 C Sample Type = ARTERIAL Ordering Provider: MAZIN ARREDONDO Report Released Date/Time: Jul 03, 2024 01:48 PM Reporting Lab: [facility] [address] Performing Lab: [facility] [address] POC PH 7.387 7.35-7.45 POC PCO2 34.4 [...] H 80.0-105.0 Jul 03, 2024 01:05 PM [facility] POC ABG/ELECTROLYTES Specimen Type: ARTERIAL BLOOD Comment: FIO2 = 53% Patient Temp: 36.2 C Sample Type = ARTERIAL Ordering Provider: MAZIN ARREDONDO Report Released Date/Time: Jul 03, 2024 01:48 PM Reporting Lab: [facility] [address] Performing Lab: [facility] [address] POC PH 7.280 L 7.35-7.45 POC PCO2 [...] mm[Hg] 80.0-105.0 Jul 03, 2024 06:15 AM [facility] URINALYSIS Specimen Type: URINE No comment entered. Ordering Provider: PALMIRA POWELL Report Released Date/Time: Jun 12, 2024 04:01 PM Reporting Lab: [facility] [address] Performing Lab: [facility] [address] URINE COLOR YELLOW SPECIFIC GRAVITY 1.031 1.003-1.03 [...] 250 NEGATIVE Jul 03, 2024 06:13 AM [facility] CBC Specimen Type: BLOOD No comment entered. Ordering Provider: PALMIRA POWELL Report Released Date/Time: Jun 12, 2024 03:59 PM Reporting Lab: [facility] [address] Performing Lab: [facility] [address] WBC 15.8 H 4.0-11.0 RBC 5.11 4.60-6.20 HGB 16.1 g/dL 13.5-17.9 HCT 49.1 41.0-54.0 MCV 96.1 fL 80.0-100.0 MCH 31.5 pg 27.0-33.0 MCHC 32.8 g/dL 32.0-37.5 PLT 357 150-400 MPV 9.8 fL 9.1-13.0 RDW 13.7 11.5-14.5 Jun 24, 2024 09:50 AM [facility] BASIC METABOLIC PANEL+MG Specimen Type: PLASMA Comment: Specimen received in Lab at: 0948 Ordering Provider: JEVON ZAZUETA Report Released Date/Time: Jun 23, 2024 06:07 PM Reporting Lab: [facility] [address] Performing Lab: [facility] [address] CREATININE 0.8 mg/dL 0.7-1.2 UREA NITROGEN 13 mg/dL 8-26 GLUCOSE 135 mg/dL H 70-100 SODIUM 135 mmol/L L 136-145 POTASSIUM 3.6 mmol/L 3.5-5.1 CHLORIDE 103 mmol/L 98-107 CO2 24 mmol/L 22-29 CALCIUM 9.2 mg/dL 8.4-10.2 MAGNESIUM 1.9 mg/dL 1.6-2.6 ANION GAP 8 mmol/L 5-15 .CREAT EGFR(CKD-EPI) >90 >60 Jun 24, 2024 09:50 AM [facility] CBC Specimen Type: BLOOD Comment: Specimen received in Lab at: 0948 Ordering Provider: JEVON ZAZUETA Report Released Date/Time: Jun 23, 2024 06:07 PM Reporting Lab: [facility] [address] Performing Lab: [facility] [address] WBC 15.5 H 4.0-11.0 RBC 4.93 4.60-6.20 HGB 15.2 g/dL 13.5-17.9 HCT 46.5 41.0-54.0 MCV 94.3 fL 80.0-100.0 MCH 30.8 pg 27.0-33.0 MCHC 32.7 g/dL 32.0-37.5 PLT 223 150-400 MPV 11.4 fL 9.1-13.0 RDW 13.9 11.5-14.5 Jun 23, 2024 07:52 AM [facility] COMPREHENSIVE METABOLIC PANEL+MG Specimen Type: PLASMA No comment entered. Ordering Provider: JEVON ZAZUETA Report Released Date/Time: Jun 22, 2024 05:51 PM Reporting Lab: [facility] [address] Performing Lab: [facility] [address] CREATININE 0.7 mg/dL 0.7-1.2 UREA NITROGEN 16 [...] >90 >60 Jun 23, 2024 07:52 AM [facility] CBC & DIFF Specimen Type: BLOOD Comment: Automated Differential Performed Ordering Provider: JEVON ZAZUETA Report Released Date/Time: Jun 22, 2024 05:51 PM Reporting Lab: [facility] [address] Performing Lab: [facility] [address] WBC 14.9 H 4.0-11.0 RBC 5.09 4.60-6.20 [...] 0.1 0.0-0.1 Jun 22, 2024 06:10 PM [facility] CBC Specimen Type: BLOOD No comment entered. Ordering Provider: JEOVN ZAZUETA Report Released Date/Time: Jun 22, 2024 05:51 PM Reporting Lab: [facility] [address] Performing Lab: [facility] [address] WBC 16.9 H 4.0-11.0 RBC 5.28 4.60-6.20 HGB 16.9 g/dL 13.5-17.9 HCT 50.4 41.0-54.0 MCV 95.5 fL 80.0-100.0 MCH 32.0 pg 27.0-33.0 MCHC 33.5 g/dL 32.0-37.5 PLT 223 150-400 MPV 10.9 fL 9.1-13.0 RDW 14.0 11.5-14.5 Jun 22, 2024 06:10 PM [facility] COMPREHENSIVE METABOLIC PANEL+MG Specimen Type: PLASMA No comment entered. Ordering Provider: JEVON ZAZUETA Report Released Date/Time: Jun 22, 2024 05:51 PM Reporting Lab: [facility] [address] Performing Lab: [facility] [address] CREATININE 0.7 mg/dL 0.7-1.2 UREA NITROGEN 17 [...] >90 >60 Jun 21, 2024 06:48 PM [facility] URINALYSIS Specimen Type: URINE No comment entered. Ordering Provider: DELIA MARTINEZ Report Released Date/Time: Jun 21, 2024 05:45 PM Reporting Lab: [facility] [address] Performing Lab: [facility] [address] URINE COLOR YELLOW SPECIFIC GRAVITY 1.041 H [...] 500 NEGATIVE Jun 21, 2024 05:34 PM [facility] POC CREATININE Specimen Type: BLOOD No comment entered. Ordering Provider: DELIA MARTINEZ Report Released Date/Time: Jun 21, 2024 06:07 PM Reporting Lab: [facility] [address] Performing Lab: [facility] [address] POC CREATININE 1.1 mg/dL 0.6-1.3 Jun 21, 2024 05:30 PM [facility] POC ABG/LACTATE Specimen Type: VENOUS BLOOD No comment entered. Ordering Provider: DELIA MARTINEZ Report Released Date/Time: Jun 21, 2024 06:07 PM Reporting Lab: [facility] [address] Performing Lab: [facility] [address] POC PH 7.470 H 7.31-7.41 POC PCO2 31.2 mm[Hg] L 41.00-51 .0 0 POC PO2 46 mm[Hg] H 35.0-40.0 POC TCO2 24 mmol/L 24.0-29.0 POC HCO3 22.7 mmol/L L 23.0-28.0 POC BE ECT -1 mmol/L POC SO2 85 H 70-75 POC LACTATE 1.85 mmol/L 0.90-1.70 Jun 21, 2024 05:24 PM [facility] PROTHROMBIN TIME/INR Specimen Type: PLASMA No comment entered. Ordering Provider: DELIA MARTINEZ Report Released Date/Time: Jun 21, 2024 05:30 PM Reporting Lab: [facility] [address] Performing Lab: [facility] [address] .INR 1.2 H 0.8-1.1 .PT 13.9 s H 9.4-12.5 Jun 21, 2024 05:24 PM [facility] LIPASE Specimen Type: PLASMA No comment entered. Ordering Provider: DELIA MARTINEZ Report Released Date/Time: Jun 21, 2024 05:30 PM Reporting Lab: [facility] [address] Performing Lab: [facility] [address] LIPASE 32 U/L <60 Jun 21, 2024 05:24 PM [facility] EXTRA GOLD GEL TUBE Specimen Type: SERUM No comment entered. Ordering Provider: DELIA MARTINEZ Report Released Date/Time: Jun 21, 2024 05:41 PM Reporting Lab: [facility] [address] Performing Lab: [facility] [address] EXTRA GOLD GEL TUBE RECEIVED Jun 21, 2024 05:24 PM [facility] COMPREHENSIVE METABOLIC PANEL+MG Specimen Type: PLASMA No comment entered. Ordering Provider: DELIA MARTINEZ Report Released Date/Time: Jun 21, 2024 05:30 PM Reporting Lab: [facility] [address] Performing Lab: [facility] [address] CREATININE 0.9 mg/dL 0.7-1.2 UREA NITROGEN 29 [...] mg/dL <0.5 Jun 21, 2024 05:24 PM [facility] CBC & DIFF Specimen Type: BLOOD Comment: Manual Differential Performed Ordering Provider: DELIA MARTINEZ Report Released Date/Time: Jun 21, 2024 05:30 PM Reporting Lab: [facility] [address] Performing Lab: [facility] [address] WBC 21.3 H 4.0-11.0 RBC 5.48 4.60-6.20 [...] MORPHOLOGY PRESENT Jun 08, 2024 10:59 AM [facility] PROTHROMBIN TIME/INR Specimen Type: PLASMA No comment entered. Ordering Provider: PALMIRA POWELL Report Released Date/Time: May 28, 2024 09:02 AM Reporting Lab: [facility] [address] Performing Lab: [facility] [address] .INR 1.0 0.8-1.1 .PT 11.8 s 9.4-12.5 Jun 08, 2024 10:59 AM [facility] HEMOGLOBIN A1C Specimen Type: BLOOD [...] May 28, 2024 09:02 AM Reporting Lab: [facility] [address] Performing Lab: [facility] [address] HEMOGLOBIN A1C 4.9 4.0-6.0 Jun 08, 2024 10:59 AM [facility] CBC Specimen Type: BLOOD No comment entered. Ordering Provider: PALMIRA POWELL Report Released Date/Time: May 28, 2024 09:02 AM Reporting Lab: [facility] [address] Performing Lab: [facility] [address] WBC 16.1 H 4.0-11.0 RBC 5.02 4.60-6.20 HGB 16.0 g/dL 13.5-17.9 HCT 47.1 41.0-54.0 MCV 93.8 fL 80.0-100.0 MCH 31.9 pg 27.0-33.0 MCHC 34.0 g/dL 32.0-37.5 PLT 228 150-400 MPV 10.3 fL 9.1-13.0 RDW 14.6 H 11.5-14.5 Jun 08, 2024 10:59 AM [facility] BASIC METABOLIC PANEL+MG Specimen Type: PLASMA No comment entered. Ordering Provider: PALMIRA POWELL Report Released Date/Time: May 28, 2024 09:02 AM Reporting Lab: [facility] [address] Performing Lab: [facility] [address] CREATININE 0.9 mg/dL 0.7-1.2 UREA NITROGEN 15 mg/dL 8-26 GLUCOSE 93 mg/dL 70-100 SODIUM 139 mmol/L 136-145 POTASSIUM 3.7 mmol/L 3.5-5.1 CHLORIDE 106 mmol/L 98-107 CO2 25 mmol/L 22-29 CALCIUM 9.8 mg/dL 8.4-10.2 MAGNESIUM 2.1 mg/dL 1.6-2.6 ANION GAP 8 mmol/L 5-15 .CREAT EGFR(CKD-EPI) >90 >60 May 21, 2024 06:59 AM [facility] BASIC METABOLIC PANEL+MG Specimen Type: PLASMA No comment entered. Ordering Provider: GOLDIE CABRERA Report Released Date/Time: May 15, 2024 08:34 AM Reporting Lab: [facility] [address] Performing Lab: [facility] [address] CREATININE 0.9 mg/dL 0.7-1.2 UREA NITROGEN 18 [...] Source Jun 08, 2024 11:43 AM 147/73 [facility] Jun 08, 2024 11:43 AM 97.5 58 143/64 18 97 0 70 206.4 30 [facility] Social History: Smoking [...] Date/Time Current Smoking Status Patty putnam May 15, 2024 08:30 AM VA-TOBACCO FORMER USER [facility] Tobacco Use History This section includes a history of the smoking, or tobacco-related health factors, that were collected on or before the date of the Encounter. The data comes from the [place] facility where the Encounter took place. Date/Time Smoking Status/Tobacco Use Comment F acility May 15, 2024 08:30 AM VA-TOBACCO QUIT 15 YRS OR MORE [facility] May 06, 2023 11:30 AM VA-TOBACCO FORMER USER [facility] May 06, 2023 11:30 AM VA-TOBACCO QUIT 15 YRS OR MORE [facility] Jun 04, 2022 09:00 AM VA-TOBACCO FORMER USER [facility] Jun 04, 2022 09:00 AM VA-TOBACCO QUIT 15 YRS OR MORE [facility] Jul 10, 2021 08:00 AM VA-TOBACCO FORMER USER [facility] Jul 10, 2021 08:00 AM VA-TOBACCO QUIT 5 TO < 15 YRS [facility] May 23, 2020 08:30 AM VA-TOBACCO FORMER USER [facility] May 23, 2020 08:30 AM VA-TOBACCO QUIT 5 TO < 15 YRS [facility] Mar 20, 2019 04:03 PM VA-TOBACCO FORMER USER [facility] Mar 20, 2019 04:03 PM VA-TOBACCO QUIT 5 TO < 15 YRS [facility] Mar 21, 2018 08:13 AM FORMER TOBACCO USER 7Y OR GREATE R [facility] Feb 24, 2017 09:24 AM FORMER TOBACCO USER 7Y OR GREATE R [facility] January 07, 2016 08:01 AM FORMER TOBACCO USE >1Y <7Y [facility] Feb 03, 2015 07:58 AM FORMER TOBACCO USE <1Y [facility] Feb 26, 2014 08:41 AM CURRENT TOBACCO USER [facility] May 13, 2011 01:45 PM CURRENT TOBACCO USER [facility] Advance Directives: All historical and [...] 2 VIEWS PA AND LAT: FLACA WEAVER [id number] -1950 M Exm Date: JUL 08, 2024@10:09 Req Phys: KATELYNN PERSON Pat Loc: 2KG/07-08-2024@11:49 Img Loc: MAIN X-RAY Service: [place] [address] (Case 24 COMPLETE) CHEST 2 VIEWS PA AND LAT (RAD Detailed) CPT:32458 Reason for Study: Uptrending WBC, POD 5 Clinical History: [place] IS NOT under investigation for COVID-19 or is COVID-19 negative POD 5, work up for uptrending wbc Responsible provider name and phone number to notify for critical findings if other than user placing the order and pager listed below: User placing orders pager: Katelynn Person LAST CREATININE [phone] (07/07/24) Report Status: Verified Date Reported: JUL 08, 2024 Date Verified: JUL 08, 2024 Derrick Boat [place] E-Sig: Report: CHEST 2 VIEWS PA AND [...] cardiopulmonary disease. READING PHYSICIAN: Sarbjit Vaughn M.D. -[id number] 07/08/2024 12:46 EST [facility] National Teleradiology Program [phone] (For Medical Practitioner Use Only) Attention Patients / Veterans: If you have questions or concerns about these test results, please contact your ordering provider or primary care team. Primary Interpreting Staff: RADIOLOGY,OUTSIDE SERVICE, Staff Physician / RADIOLOGY,OUTSIDE SERVICE [facility] Jul 08, 2024 10:[address] (AP) ABDOMEN/PELVIS W CONTRAST: FLACA WEAVER [id number] -1950 M Exm Date: JUL 08, 2024@10:00 Req Phys: KATELYNN PERSON Loc: 2KG/07-08-2024@12:07 Im Loc: [facility] [place] [address] (Case 22 COMPLETE) CT (AP) ABDOMEN/PELVIS W CONTRAST(CT Detailed) CPT:55134 Contrast Media : Non-ionic Iodinated Reason for [...] PLASMA .CREAT EGFR(CKD-E >90 Ref: >=60 Allergies: ([place] only) TERAZOSIN (Mar 13, 2015) Report Status: Verified Date Reported: JUL 08, 2024 Date Verified: JUL 08, 2024 Derrick Boat Leverman E-Sig: Report: CT (AP) ABDOMEN/PELVIS W CONTRAST [...] as noted above READING PHYSICIAN: Celestino Blanc -[id number] 07/08/2024 13:04 EST [facility] National Teleradiology Program [phone] (For Medical Practitioner Use Only) Attention Patients / Veterans: If you have questions or concerns about these test results, please contact your ordering provider or primary care team. Primary Interpreting Staff: RADIOLOGY,OUTSIDE SERVICE, Staff Physician / RADIOLOGY,OUTSIDE SERVICE [facility] Jun 22, 2024 11:49 AM ABSCESS DRAIN PLACEMENT PERITONEAL (P): FLACA WEAVER [id number] -1950 M Ex Date: JUN 22, 2024@11:49 Req Phys: ANGELA HOLDEN Loc: 2K/06-22-2024@17:14 Img Loc: INTERVENTIONAL RADIOLOGY Service: [place] [address] (Case [id number] COMPLETE) IR PERITONEAL/RETROPERITONEAL PER(ANI Detailed) CPT:11171 Reason for Study: diverticulitis with abscess (Case 3570 COMPLETE) IR MOD SEDATION 10-22 MIN (ANI Detailed) CPT:89106 Clinical History: [place] IS NOT under investigation for COVID-19 or is COVID-19 negative 73 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 please place abscess drain. Contact number for responsible provider who can be reached for any questions or notifications of critical findings: [phone] n/a LAST CREATININE 0.9 (06/21/24) Report Status: Verified Date Reported: JUN 22, 2024 Date Verified: JUN 22, 2024 Derrick Boat Leverman E-Sig:/ES/LISA PENDLETON MD Report: PROCEDURES: Placement of [...] a 5 Citizen Of The [place] Verengo Solaresis catheter was advanced into the collection in [...] Primary Interpreting Staff: LISA PENDLETON MD, RADIOLOGIST (Derrick Boat Leverman) /LISA CARDONA [facility] Jun 22, 2024 11:[address] NEEDLE PLACEMENT (P): FLACA WEAVER [id number] -1950 M Exm Date: JUN 22, 2024@11:48 Req Phys: ADINAANGELA Mcfarlane Amanda Loc: [facility]/06-22-2024@17:14 Img Loc: CT IMAGING Service: [place] [address] (Case [id number] COMPLETE) CT SCAN FOR NEEDLE PLACEMENT (CT Detailed) CPT:88773 Reason for Study: l pelvic abscess drain Clinical History: Report Status: Verified Date Reported: JUN 22, 2024 Date Verified: JUN 22, 2024 Derrick Boat Leverman E-Sig:/ES/LISA PENDLETON MD Report: PROCEDURES: Placement of [...] a 5 Citizen Of [place] QBuy catheter was advanced into the collection in [...] Primary Interpreting Staff: LISA PENDLETON MD, RADIOLOGIST (Derrick Boat Leverman) /JRT LISA PENDLETON [facility] Jun 21, 2024 06:[address] (AP) ABDOMEN/PELVIS (P): FLACA WEAVER [id number] -1950 M Exm Date: JUN 21, 2024@18:09 Req Phys: DELIA MARTINEZ Loc: [facility] EMERGENCY DEPT WALK-IN (Re Img Loc: CT IMAGING Service: [place] [address] (Case [id number] COMPLETE) CT (AP) ABDOMEN/PELVIS W CONTRAST(CT Detailed) CPT:87513 Contrast Media : Non-ionic Iodinated Reason for [...] PLASMA .CREAT EGFR(CKD-E >90 Ref: >=60 Allergies: ([place] only) TERAZOSIN (Mar 13, 2015) Defer to [...] 21, 2024 Date Verified: JUN 21, 2024 Derrick Boat Leverman E-Sig:/ES/CARLOS A CUNNINGHAM DO Report: EXAMINATION: CT [...] Interpreting Staff: CARLOS A CUNNINGHAM DO, RADIOLOGIST (Derrick Boat Leverman) /CARLOS A ROWELL [facility] May 25, 2024 09:00 AM IR FISTULOGRAM OR SINOGRAM : FLACA WEAVER [id number] -1950 M Exm Date: MAY 25, 2024@09:00 Req Phys: AMINTA PRUITT Loc: [facility] XRAY INTERVENTIONAL RADIO Img Loc: INTERVENTIONAL RADIOLOGY Service: [place] [address] (Case [id number] COMPLETE) IR FISTULOGRAM OR SINOGRAM (ANI Detailed) CPT:22444 Contrast Media : unspecified contrast media Reason for Study: s/p drain placement for diverticular abscess- assess for drain Clinical History: [place] IS NOT under investigation for COVID-19 or [...] 25, 2024 Date Verified: MAY 25, 2024 Derrick Boat Leverman E-Sig:/ES/DAVID BURNS MD Report: PROCEDURES 05/25/2024 9:48 [...] Primary Interpreting Staff: DAVID BURNS MD, RADIOLOGIST (Derrick Boat Leverman) /CSS DAVID BURNS [facility] May 25, 2024 08:[address] (AP) ABDOMEN/PELVIS (P): MEGFLACA YAMIL [id number] -1950 M Exm Date: MAY 25, 2024@08:23 Req Phys: DAVID BURNS Pat Loc: [facility] XRAY INTERVENTIONAL RADIO Img Loc: CT IMAGING Service: [place] [address] (Case [id number] COMPLETE) CT (AP) ABDOMEN/PELVIS W/O CONTRA(CT Detailed) CPT:35976 Reason for Study: assess abscess and possible [...] PLASMA .CREAT EGFR(CKD-E >90 Ref: >=60 Allergies: ([place] only) TERAZOSIN (Mar 13, 2015) Report Status: Verified Date Reported: MAY 25, 2024 Date Verified: MAY 25, 2024 Derrick Boat Leverman E-Sig:/ES/JESSENIA GOODMAN MD Report: EXAM: CT abdomen and pelvis without intravenous contrast. 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 TECHNIQUE: Helical acquisition of image data was performed for the abdomen and pelvis without intravenous contrast. Dose: 512.57 mGy*cm COMPARISON: CT abdomen pelvis with contrast 05/11/[address] abdomen pelvis 04/23/2024.; CT abdomen pelvis 05/05/2020 FINDINGS: SATELLITE SPECIALIST: Pigtail catheter projecting over the left hemipelvis [...] extend anterior to the right hepatic lobe (73). Colonic diverticulosis. Stable mild inflammatory changes and [...] Primary Interpreting Staff: JESSENIA GOODMAN MD, RADIOLOGIST (Derrick Boat Leverman) Primary Interpreting Resident: YOHANNES MELO DO, FLOUR BLENDER /JESSENIA LOUIE [facility] May 11, 2024 12:39 PM IR FISTULOGRAM / SINOGRAM (P): FLACA WEAVER [id number] -1950 M Exm Date: MAY 11, 2024@12:39 Req Phys: PALMIRA POWELL Loc: [facility] C/R FOLLOW-UP CLINIC (Req' Img Loc: INTERVENTIONAL RADIOLOGY Service: [place] [address] (Case [id number] COMPLETE) IR INJECTION FOR SINOGRAM DIAGNOS(ANI Detailed) CPT:31715 Contrast Media : Non-ionic Iodinated Reason for Study: s/p drain placement for diverticular abscess- assess for drain (Case [id number] COMPLETE) IR FISTULOGRAM OR SINOGRAM (ANI Detailed) CPT:52219 Contrast Media : unspecified contrast media (Case 3773 COMPLETE) IR DRAINAGE CATHETER SUPPLY (ANI Detailed) CPT:C1729 Clinical History: IS NOT under investigation for COVID-19 or is COVID-19 negative s/p drain placement for diverticular abscess- assess for drain removal Contact number for responsible provider who can be reached for any questions or notifications of critical findings: [phone] Palmira Powell MD LAST CREATININE 0.7 (05/04/24) Report Status: Verified Date Reported: MAY 11, 2024 Date Verified: MAY 11, 2024 Derrick Boat Leverman E-Sig:/ES/AMINTA PRUITT MD Report: PROCEDURES Abdominal drain [...] Interpreting Staff: AMINTA PRUITT MD, INTERVENTIONAL RADIOLOGIST (Derrick Boat Leverman) /AMINTA VELAZCO [facility] May 11, 2024 11:[address] (AP) ABDOMEN/PELVIS (P): FLACA WEAVER [id number] -1950 M Exm Date: MAY 11, 2024@11:40 Req Phys: PALMIRA POWELL Loc: [facility] C/R FOLLOW-UP CLINIC (Req' Img Loc: CT IMAGING Service: [place] [address] (Case [id number] COMPLETE) CT (AP) ABDOMEN/PELVIS W CONTRAST(CT Detailed) CPT:78064 Contrast Media : Non-ionic Iodinated Reason for [...] any questions or notifications of critical findings: [phone] Palmira Powell MD LAST 3: Collection DT [...] PLASMA .CREAT EGFR(CKD-E >90 Ref: >=60 Allergies: ([place] only) TERAZOSIN (Mar 13, 2015) Report Status: Verified Date Reported: MAY 11, 2024 Date Verified: MAY 11, 2024 Derrick Boat Leverman E-Sig:/ES/LISA PENDLETON MD Report: CT abdomen and [...] Primary Interpreting Staff: LISA PENDLETON MD, RADIOLOGIST (Derrick Boat Leverman) /LISA CARDONA [facility] Pathology Reports: +/- 30 days [...] COSIGNER: URGENCY: STATUS: COMPLETED $APHDR Reporting Lab: [facility] [CLIA# [id number]] [place] [address] - - - - - - - [...] - PATHOLOGY REPORT Accession No. [id number] - - - - - - - [...] - PATHOLOGY REPORT Accession No. [id number] - - - - - - - [...] Second circumferential surgical margin, en face; E-F: Diesel Engine Operator diverticula; G: Diesel Engine Operator section of mesentery; H: Random agricultural sales representative section of additional adipose tissue [...] Performing Laboratory: Surgical Pathology Report Performed By: [facility] [CLIA# [id number]] [place] [address] $FTR - - - - - - [...] - - FLACA WEAVER STANDARD FORM 515 ID:[id number] SEX:M :1950 AGE: 73 LOC:84255 ADM:Jun DX:DIVERTICULITIS PCP: Jatinder Cabrera /alexi/ EDUARDO PALOMARES MD STAFF PATHOLOGIST Signed: 07/06/2024 10:40 EDUARDO PALOMARES [facility] Jun 22, 2024 01:15 PM LR MICROBIOLOGY RE PORT: Reporting Lab: [facility] [CLIA# [id number]] [place] [address] Accession [UID]: [id number] [[id number]] Received: Jun 22, 2024@13:38 Collection sample: FLUID Collection date: Jun 22, 2024 13:15 Provider: ANGELA HOLDEN Comment on specimen: LLQ ABSCESS, RECEIVED IN ANAEROBIC TRANSPORT VIAL Test(s) ordered: GRAM STAIN.................... completed: Jun 22, 2024 15:03 CULTURE & SUSCEPTIBILITY...... completed: Jun 25, 2024 * BACTERIOLOGY FINAL REPORT => Jun 25, 2024 10:56 [facility] CODE: [id number] GRAM STAIN: DIRECT SMEAR of specimen before [...] -=--=--=--=--=--=--=-- Performing Laboratory: Bacteriology Report Performed By: [facility] [CLIA# [id number]] [place] [address] [facility] Jun 22, 2024 01:15 PM LR MICROBIOLOGY RE PORT: Reporting Lab: [facility] [CLIA# [id number]] [place] [address] Accession [UID]: [id number] [[id number]] Received: Jun 22, 2024@13:38 Collection sample: FLUID Collection date: Jun 22, 2024 13:15 Provider: ANGELA OHLDEN Comment on specimen: LLQ ABSCESS, RECEIVED IN ANAEROBIC TRANSPORT VIAL Test(s) ordered: ANAEROBIC CULTURE............. completed: Jun 28, 2024 * BACTERIOLOGY FINAL REPORT => Jun 28, 2024 10:08 TECH CODE: [id number] CULTURE RESULTS: HEAVY GROWTH MIXED ANAEROBES Comment: including the followin+ Bacteroides fragilis 4+ Bacteroides vulgatus 4+ Clostridium innocuum Beta-lactamase negative 4+ Bacteroides caccae 4+ Parvimonas micra 4+ Bacteroides uniformis 4+ Gemella morbillorum 4+ anaerobic small, Gram Positive Rods 4+ Bacteroides thetaiotaomicron Standard workup is now complete. Bacteriology Remark(s): THIS REPORT IS FINAL =--=--=--=--=--=--=--=--=--= --=--=--=--=--=--=--=--=--=- -=--=--=--=--=--=--=-- Performing Laboratory: Bacteriology Report Performed By: [facility] [CLIA# [id number]] [place] [address] [facility] Jun 21, 2024 06:12 PM LR MICROBIOLOGY RE PORT: Reporting Lab: [facility] [CLIA# [id number]] [place] [address] Accession [UID]: [id number] [[id number]] Received: Jun 21, 2024@18:12 Collection sample: BLOOD [...] -=--=--=--=--=--=--=-- Performing Laboratory: Bacteriology Report Performed By: [facility] [CLIA# [id number]] [place] [address] [facility] Jun 21, 2024 06:11 PM LR MICROBIOLOGY RE PORT: Reporting Lab: [facility] [IA# [id number]] [place] [address] Accession [UID]: [id number] [[id number]] Received: Jun 21, 2024@18:11 Collection sample: BLOOD [...] -=--=--=--=--=--=--=-- Performing Laboratory: Bacteriology Report Performed By: [facility] [CLIA# [id number]] [place] [address] [facility] Jun 08, 2024 11:00 AM LR MICROBIOLOGY RE PORT: Reporting Lab: [facility] [CLIA# [id number]] [place] [address] Accession [UID]: [id number] [[id number]] Received: Jun 08, 2024@11:00 Collection sample: URINE Collection date: Jun 08, 2024 11:00 Provider: PALMIRA POWELL Comment on specimen: urine Test(s) ordered: CULTURE & SUSCEPTIBILITY...... completed: Jun 09, 2024 * BACTERIOLOGY FINAL REPORT => Jun 09, 2024 19:12 TECH CODE: [id number] CULTURE RESULTS: ESCHERICHIA COLI - Quantity: >100,000 [...] -=--=--=--=--=--=--=-- Performing Laboratory: Bacteriology Report Performed By: [facility] [CLIA# [id number]] [place] [address] [facility]
--- OUTSIDE RECORDS SUMMARY | 2024-07-16 07:28 | XMS_ITS | Encounter Summary ---
Author Name [facility] Organization [facility] Address [address] [place] [address] Care Team Providers Care Core Feeder Name Role Phone JATINDER CABRERA Primary Care [...] PART A Sep 29, 2016 PART A [id number] JUDY WEAVER PATIENT Selected Encounter This section includes the information on record at [place] for the Encounter. Date/Time Encounter Type Encounter Description Reason Pro vider Source Jun 19, 2024 07:30 AM Outpatient Encounter [facility] Encounter Template Text not used by [...] 21, 2024 04:48 PM AMBULATORY - MEDICINE [facility] Jun 21, 2024 05:45 PM AMBULATORY - NONE [facility] Jun 27, 2024 07:00 AM AMBULATORY - NONE [facility] Jun 27, 2024 07:30 AM AMBULATORY - MEDICINE [facility] Jun 27, 2024 08:00 AM AMBULATORY - MEDICINE [facility] Jul 03, 2024 05:55 AM AMBULATORY - NONE [facility] Jul 13, 2024 08:15 AM AMBULATORY - NONE [facility] Active, Pending, and Scheduled [...] theEncounter. The data comes from all [facility] facilities. Test Date/Time Test Type Test Details Facility Name May 28, 2024 12:00 AM Laboratory - Blood Bank Order TYPE & SCREEN - LAB BLOOD SP [facility] Jun 08, 2024 09:57 AM Laboratory - Chemi stry Order URINALYSIS URINE WC ONCE [facility] Jun 12, 2024 12:00 AM Laboratory - Chemi stry Order BNP PLASMA SP ONCE [facility] Jun 21, 2024 05:45 PM Laboratory - Blood Bank Order TYPE & SCREEN - LAB BLOOD [facility] Jul 03, 2024 12:00 AM Laboratory - Blood Bank Order TYPE & SCREEN - LAB BLOOD [facility] Jul 16, 2024 12:00 AM Laboratory - Chemi stry Order CBC BLOOD SP ONCE [facility] Jul 17, 2024 12:00 AM Laboratory - Chemi stry Order BASIC METABOLIC PANEL+MG PLASMA SP ONCE [facility] Lab Results: +/- 30 [...] Range Comment Jul 10, 2024 07:16 AM [facility] PHOSPHORUS Specimen Type: PLASMA No comment entered. Ordering Provider: JUANCARLOS ECHOLS S Report Released Date/Time: Jul 09, 2024 12:23 PM Reporting Lab: [facility] [phone] Performing Lab: [facility] [address] PHOSPHORUS 3.0 mg/dL 2.3-4.3 Jul 10, 2024 07:16 AM [facility] BASIC METABOLIC PANEL+MG Specimen Type: PLASMA No comment entered. Ordering Provider: JUANCARLOS ECHOLS S Report Released Date/Time: Jul 09, 2024 12:23 PM Reporting Lab: [facility] [address] Performing Lab: [facility] [address] CREATININE 0.7 mg/dL 0.7-1.2 UREA NITROGEN 27 mg/dL H 8-26 GLUCOSE 104 mg/dL H 70-100 SODIUM 133 mmol/L L 136-145 POTASSIUM 4.3 mmol/L 3.5-5.1 CHLORIDE 102 mmol/L 98-107 CO2 19 mmol/L L 22-29 CALCIUM 10.1 mg/dL 8.4-10.2 MAGNESIUM 1.9 mg/dL 1.6-2.6 ANION GAP 12 mmol/L 5-15 .CREAT EGFR(CKD-EPI) >90 >60 Jul 10, 2024 07:15 AM [facility] CBC Specimen Type: BLOOD No comment entered. Ordering Provider: JUANCARLOS ECHOLS S Report Released Date/Time: Jul 09, 2024 12:23 PM Reporting Lab: [facility] [address] Performing Lab: [facility] [address] WBC 18.8 H 4.0-11.0 RBC 5.08 4.60-6.20 HGB 15.9 g/dL 13.5-17.9 HCT 46.8 41.0-54.0 MCV 92.1 fL 80.0-100.0 MCH 31.3 pg 27.0-33.0 MCHC 34.0 g/dL 32.0-37.5 PLT 479 H 150-400 MPV 10.2 fL 9.1-13.0 RDW 13.7 11.5-14.5 Jul 09, 2024 07:08 AM [facility] CBC Specimen Type: BLOOD No comment entered. Ordering Provider: ABHISHEK,RISH AV Report Released Date/Time: Jul 08, 2024 06:18 PM Reporting Lab: [facility] [phone] Performing Lab: [facility] [address] WBC 15.3 H 4.0-11.0 RBC 4.91 4.60-6.20 HGB 15.1 g/dL 13.5-17.9 HCT 45.7 41.0-54.0 MCV 93.1 fL 80.0-100.0 MCH 30.8 pg 27.0-33.0 MCHC 33.0 g/dL 32.0-37.5 PLT 443 H 150-400 MPV 10.0 fL 9.1-13.0 RDW 13.5 11.5-14.5 Jul 08, 2024 10:50 AM [facility] URINALYSIS Specimen Type: URINE No comment entered. Ordering Provider: KATELYNN PERSON Report Released Date/Time: Jul 08, 2024 08:41 AM Reporting Lab: [facility] [phone] Performing Lab: [facility] [address] URINE COLOR YELLOW SPECIFIC GRAVITY >1.050 H [...] NEGATIVE NEGATIVE Jul 08, 2024 09:54 AM [facility] CBC Specimen Type: BLOOD Comment: Specimen received in Lab at: 0952 Ordering Provider: JUANCARLOS ECHOLS Report Released Date/Time: Jul 07, 2024 04:49 PM Reporting Lab: [facility] [phone] Performing Lab: [facility] [address] WBC 17.5 H 4.0-11.0 RBC 4.88 4.60-6.20 HGB 14.9 g/dL 13.5-17.9 HCT 45.7 41.0-54.0 MCV 93.6 fL 80.0-100.0 MCH 30.5 pg 27.0-33.0 MCHC 32.6 g/dL 32.0-37.5 PLT 472 H 150-400 MPV 10.2 fL 9.1-13.0 RDW 13.7 11.5-14.5 Jul 08, 2024 09:54 AM [facility] PHOSPHORUS Specimen Type: PLASMA Comment: Specimen received in Lab at: 0952 Ordering Provider: JUANCARLOS ECHOLS Report Released Date/Time: Jul 07, 2024 04:49 PM Reporting Lab: [facility] [address] Performing Lab: [facility] [address] PHOSPHORUS 2.6 mg/dL 2.3-4.3 Jul 08, 2024 09:54 AM [facility] BASIC METABOLIC PANEL+MG Specimen Type: PLASMA Comment: Specimen received in Lab at: 0952 Ordering Provider: JUANCARLOS ECHOLS Report Released Date/Time: Jul 07, 2024 04:49 PM Reporting Lab: [facility] [phone] Performing Lab: [facility] [address] CREATININE 0.9 mg/dL 0.7-1.2 UREA NITROGEN 26 mg/dL 8-26 GLUCOSE 128 mg/dL H 70-100 SODIUM 134 mmol/L L 136-145 POTASSIUM 3.4 mmol/L L 3.5-5.1 CHLORIDE 100 mmol/L 98-107 CO2 24 mmol/L 22-29 CALCIUM 9.8 mg/dL 8.4-10.2 MAGNESIUM 1.8 mg/dL 1.6-2.6 ANION GAP 10 mmol/L 5-15 .CREAT EGFR(CKD-EPI) >90 >60 Jul 07, 2024 02:00 PM [facility] C DIFF PANEL Specimen Type: FECES No comment entered. Ordering Provider: JEVON ZAZUETA Report Released Date/Time: Jul 07, 2024 12:26 PM Reporting Lab: [facility] [phone] Performing Lab: [facility] [address] C DIFF TOX B GENE PCR NEGATIVE Negative Jul 07, 2024 07:41 AM [facility] PHOSPHORUS Specimen Type: PLASMA No comment entered. Ordering Provider: JEVON ZAZUETA Report Released Date/Time: Jul 06, 2024 03:44 PM Reporting Lab: [facility] [address] Performing Lab: [facility] [address] PHOSPHORUS 3.1 mg/dL 2.3-4.3 Jul 07, 2024 07:41 AM [facility] BASIC METABOLIC PANEL+MG Specimen Type: PLASMA No comment entered. Ordering Provider: JEVON ZAZUETA Report Released Date/Time: Jul 06, 2024 03:44 PM Reporting Lab: [facility] [address] Performing Lab: [facility] [phone] CREATININE 0.9 mg/dL 0.7-1.2 UREA NITROGEN 20 mg/dL 8-26 GLUCOSE 157 mg/dL H 70-100 SODIUM 136 mmol/L 136-145 POTASSIUM 3.7 mmol/L 3.5-5.1 CHLORIDE 102 mmol/L 98-107 CO2 21 mmol/L L 22-29 CALCIUM 9.8 mg/dL 8.4-10.2 MAGNESIUM 1.9 mg/dL 1.6-2.6 ANION GAP 13 mmol/L 5-15 .CREAT EGFR(CKD-EPI) >90 >60 Jul 07, 2024 07:40 AM [facility] CBC Specimen Type: BLOOD No comment entered. Ordering Provider: JEVON ZAZUETA Report Released Date/Time: Jul 06, 2024 03:44 PM Reporting Lab: [facility] [address] Performing Lab: [facility] [address] WBC 21.2 H 4.0-11.0 RBC 5.09 4.60-6.20 HGB 15.9 g/dL 13.5-17.9 HCT 48.3 41.0-54.0 MCV 94.9 fL 80.0-100.0 MCH 31.2 pg 27.0-33.0 MCHC 32.9 g/dL 32.0-37.5 PLT 500 H 150-400 MPV 10.3 fL 9.1-13.0 RDW 13.6 11.5-14.5 Jul 06, 2024 07:21 AM [facility] CBC Specimen Type: BLOOD No comment entered. Ordering Provider: JEVON ZAZUETA Report Released Date/Time: Jul 05, 2024 01:22 PM Reporting Lab: [facility] [address] Performing Lab: [facility] [address] WBC 18.0 H 4.0-11.0 RBC 4.83 4.60-6.20 HGB 14.6 g/dL 13.5-17.9 HCT 45.5 41.0-54.0 MCV 94.2 fL 80.0-100.0 MCH 30.2 pg 27.0-33.0 MCHC 32.1 g/dL 32.0-37.5 PLT 368 150-400 MPV 10.4 fL 9.1-13.0 RDW 13.6 11.5-14.5 Jul 06, 2024 07:21 AM [facility] PHOSPHORUS Specimen Type: PLASMA No comment entered. Ordering Provider: JEVON ZAZUETA Report Released Date/Time: Jul 05, 2024 01:22 PM Reporting Lab: [facility] [address] Performing Lab: [facility] [address] PHOSPHORUS 3.6 mg/dL 2.3-4.3 Jul 06, 2024 07:21 AM [facility] BASIC METABOLIC PANEL+MG Specimen Type: PLASMA No comment entered. Ordering Provider: JEVON ZAZUETA Report Released Date/Time: Jul 05, 2024 01:22 PM Reporting Lab: [facility] [address] Performing Lab: [facility] [address] CREATININE 0.7 mg/dL 0.7-1.2 UREA NITROGEN 12 mg/dL 8-26 GLUCOSE 108 mg/dL H 70-100 SODIUM 138 mmol/L 136-145 POTASSIUM 3.4 mmol/L L 3.5-5.1 CHLORIDE 104 mmol/L 98-107 CO2 20 mmol/L L 22-29 CALCIUM 9.3 mg/dL 8.4-10.2 MAGNESIUM 1.9 mg/dL 1.6-2.6 ANION GAP 14 mmol/L 5-15 .CREAT EGFR(CKD-EPI) >90 >60 Jul 05, 2024 07:17 AM [facility] MAGNESIUM Specimen Type: PLASMA No comment entered. Ordering Provider: JUANCARLOS ECHOLS Report Released Date/Time: Jul 04, 2024 09:39 AM Reporting Lab: [facility] [phone] Performing Lab: [facility] [address] MAGNESIUM 2.0 mg/dL 1.6-2.6 Jul 05, 2024 07:17 AM [facility] PHOSPHORUS Specimen Type: PLASMA No comment entered. Ordering Provider: JUANCARLOS ECHOLS Report Released Date/Time: Jul 04, 2024 09:39 AM Reporting Lab: [facility] [phone] Performing Lab: [facility] [address] PHOSPHORUS 2.0 mg/dL L 2.3-4.3 Jul 05, 2024 07:17 AM [facility] BASIC METABOLIC PANEL+MG Specimen Type: PLASMA No comment entered. Ordering Provider: JUANCARLOS ECHOLS Report Released Date/Time: Jul 04, 2024 09:39 AM Reporting Lab: [facility] [address] Performing Lab: [facility] [address] CREATININE 0.7 mg/dL 0.7-1.2 UREA NITROGEN 12 mg/dL 8-26 GLUCOSE 84 mg/dL 70-100 SODIUM 135 mmol/L L 136-145 POTASSIUM 3.8 mmol/L 3.5-5.1 CHLORIDE 104 mmol/L 98-107 CO2 24 mmol/L 22-29 CALCIUM 9.3 mg/dL 8.4-10.2 MAGNESIUM 2.0 mg/dL 1.6-2.6 ANION GAP 7 mmol/L 5-15 .CREAT EGFR(CKD-EPI) >90 >60 Jul 05, 2024 07:16 AM [facility] CBC Specimen Type: BLOOD No comment entered. Ordering Provider: JUANCARLOS ECHOLS S Report Released Date/Time: Jul 04, 2024 09:39 AM Reporting Lab: [facility] [phone] Performing Lab: [facility] [address] WBC 18.3 H 4.0-11.0 RBC 4.49 L 4.60-6.20 HGB 14.1 g/dL 13.5-17.9 HCT 43.4 41.0-54.0 MCV 96.7 fL 80.0-100.0 MCH 31.4 pg 27.0-33.0 MCHC 32.5 g/dL 32.0-37.5 PLT 317 150-400 MPV 10.0 fL 9.1-13.0 RDW 13.9 11.5-14.5 Jul 04, 2024 07:17 AM [facility] BASIC METABOLIC PANEL+MG Specimen Type: PLASMA No comment entered. Ordering Provider: GABINO CAMERON Report Released Date/Time: Jul 03, 2024 06:31 PM Reporting Lab: [facility] [address] Performing Lab: [facility] [address] CREATININE 0.7 mg/dL 0.7-1.2 UREA NITROGEN 16 mg/dL 8-26 GLUCOSE 129 mg/dL H 70-100 SODIUM 137 mmol/L 136-145 POTASSIUM 3.7 mmol/L 3.5-5.1 CHLORIDE 107 mmol/L 98-107 CO2 22 mmol/L 22-29 CALCIUM 9.0 mg/dL 8.4-10.2 MAGNESIUM 1.9 mg/dL 1.6-2.6 ANION GAP 8 mmol/L 5-15 .CREAT EGFR(CKD-EPI) >90 >60 Jul 04, 2024 07:17 AM [facility] PHOSPHORUS Specimen Type: PLASMA No comment entered. Ordering Provider: GABINO CAMERON Report Released Date/Time: Jul 03, 2024 06:31 PM Reporting Lab: [facility] [address] Performing Lab: [facility] [address] PHOSPHORUS 2.8 mg/dL 2.3-4.3 Jul 04, 2024 07:16 AM [facility] CBC Specimen Type: BLOOD No comment entered. Ordering Provider: GABINO CAMERON Report Released Date/Time: Jul 03, 2024 06:31 PM Reporting Lab: [facility] [address] Performing Lab: [facility] [address] WBC 20.6 H 4.0-11.0 RBC 4.63 4.60-6.20 HGB 14.2 g/dL 13.5-17.9 HCT 43.4 41.0-54.0 MCV 93.7 fL 80.0-100.0 MCH 30.7 pg 27.0-33.0 MCHC 32.7 g/dL 32.0-37.5 PLT 329 150-400 MPV 10.4 fL 9.1-13.0 RDW 13.8 11.5-14.5 Jul 04, 2024 07:16 AM [facility] CBC & DIFF Specimen Type: BLOOD Comment: Manual Differential Performed Ordering Provider: GABINO CAMERON Report Released Date/Time: Jul 03, 2024 06:31 PM Reporting Lab: [facility] [address] Performing Lab: [facility] [address] WBC 20.6 H 4.0-11.0 RBC 4.63 4.60-6.20 [...] MORPHOLOGY PRESENT Jul 04, 2024 07:15 AM [facility] BNP Specimen Type: PLASMA No comment entered. Ordering Provider: GABINO CAMERON Report Released Date/Time: Jul 03, 2024 06:31 PM Reporting Lab: [facility] [address] Performing Lab: [facility] [address] BNP 292 pg/mL H <99 Jul 03, 2024 10:32 PM [facility] FINGERSTICK GLUCOSE Specimen Type: BLOOD Comment: Save Result Nurse Notified Ordering Provider: KATELYNN PERSON Report Released Date/Time: Jul 03, 2024 10:50 PM Reporting Lab: [facility] [address] Performing Lab: [facility] [address] FINGERSTICK GLUCOSE 126 mg/dL H 70-100 Jul 03, 2024 05:33 PM [facility] FINGERSTICK GLUCOSE Specimen Type: BLOOD Comment: Save Result Nurse Notified Ordering Provider: KATELYNN PERSON Report Released Date/Time: Jul 03, 2024 05:46 PM Reporting Lab: [facility] [address] Performing Lab: [facility] [address] FINGERSTICK GLUCOSE 141 mg/dL H 100 Jul 03, 2024 02:31 PM [facility] POC ABG/ELECTROLYTES Specimen Type: ARTERIAL BLOOD Comment: FIO2 = 97% Patient Temp: 36.0 C Sample Type = ARTERIAL Ordering Provider: MAZIN ARREDONDO Report Released Date/Time: Jul 03, 2024 01:48 PM Reporting Lab: [facility] [address] Performing Lab: [facility] [address] POC PH 7.387 7.35-7.45 POC PCO2 34.4 [...] H 80.0-105.0 Jul 03, 2024 01:05 PM [facility] POC ABG/ELECTROLYTES Specimen Type: ARTERIAL BLOOD Comment: FIO2 = 53% Patient Temp: 36.2 C Sample Type = ARTERIAL Ordering Provider: MAZIN ARREDONDO Report Released Date/Time: Jul 03, 2024 01:48 PM Reporting Lab: [facility] [address] Performing Lab: [facility] [address] POC PH 7.280 L 7.35-7.45 POC PCO2 [...] mm[Hg] 80.0-105.0 Jul 03, 2024 06:15 AM [facility] URINALYSIS Specimen Type: URINE No comment entered. Ordering Provider: MARYBETH POWELL Report Released Date/Time: Jun 12, 2024 04:01 PM Reporting Lab: [facility] [address] Performing Lab: [facility] [address] URINE COLOR YELLOW SPECIFIC GRAVITY 1.031 1.003-1.03 [...] 250 NEGATIVE Jul 03, 2024 06:13 AM [facility] CBC Specimen Type: BLOOD No comment entered. Ordering Provider: MARYBETH POWELL Report Released Date/Time: Jun 12, 2024 03:59 PM Reporting Lab: [facility] [address] Performing Lab: [facility] [address] WBC 15.8 H 4.0-11.0 RBC 5.11 4.60-6.20 HGB 16.1 g/dL 13.5-17.9 HCT 49.1 41.0-54.0 MCV 96.1 fL 80.0-100.0 MCH 31.5 pg 27.0-33.0 MCHC 32.8 g/dL 32.0-37.5 PLT 357 150-400 MPV 9.8 fL 9.1-13.0 RDW 13.7 11.5-14.5 Jun 24, 2024 09:50 AM [facility] BASIC METABOLIC PANEL+MG Specimen Type: PLASMA Comment: Specimen received in Lab at: 0948 Ordering Provider: JEVON ZAZUETA Report Released Date/Time: Jun 23, 2024 06:07 PM Reporting Lab: [facility] [address] Performing Lab: [facility] [address] CREATININE 0.8 mg/dL 0.7-1.2 UREA NITROGEN 13 mg/dL 8-26 GLUCOSE 135 mg/dL H 70-100 SODIUM 135 mmol/L L 136-145 POTASSIUM 3.6 mmol/L 3.5-5.1 CHLORIDE 103 mmol/L 98-107 CO2 24 mmol/L 22-29 CALCIUM 9.2 mg/dL 8.4-10.2 MAGNESIUM 1.9 mg/dL 1.6-2.6 ANION GAP 8 mmol/L 5-15 .CREAT EGFR(CKD-EPI) >90 >60 Jun 24, 2024 09:50 AM [facility] CBC Specimen Type: BLOOD Comment: Specimen received in Lab at: 0948 Ordering Provider: JEVON ZAZUETA Report Released Date/Time: Jun 23, 2024 06:07 PM Reporting Lab: [facility] [address] Performing Lab: [facility] [address] WBC 15.5 H 4.0-11.0 RBC 4.93 4.60-6.20 HGB 15.2 g/dL 13.5-17.9 HCT 46.5 41.0-54.0 MCV 94.3 fL 80.0-100.0 MCH 30.8 pg 27.0-33.0 MCHC 32.7 g/dL 32.0-37.5 PLT 223 150-400 MPV 11.4 fL 9.1-13.0 RDW 13.9 11.5-14.5 Jun 23, 2024 07:52 AM [facility] COMPREHENSIVE METABOLIC PANEL+MG Specimen Type: PLASMA No comment entered. Ordering Provider: JEVON ZAZUETA Report Released Date/Time: Jun 22, 2024 05:51 PM Reporting Lab: [facility] [address] Performing Lab: [facility] [address] CREATININE 0.7 mg/dL 0.7-1.2 UREA NITROGEN 16 [...] >90 >60 Jun 23, 2024 07:52 AM [facility] CBC & DIFF Specimen Type: BLOOD Comment: Automated Differential Performed Ordering Provider: JEVON ZAZUETA Report Released Date/Time: Jun 22, 2024 05:51 PM Reporting Lab: [facility] [phone] Performing Lab: [facility] [address] WBC 14.9 H 4.0-11.0 RBC 5.09 4.60-6.20 [...] 0.1 0.0-0.1 Jun 22, 2024 06:10 PM [facility] CBC Specimen Type: BLOOD No comment entered. Ordering Provider: JEVON ZAZUETA Report Released Date/Time: Jun 22, 2024 05:51 PM Reporting Lab: [facility] [address] Performing Lab: [facility] [address] WBC 16.9 H 4.0-11.0 RBC 5.28 4.60-6.20 HGB 16.9 g/dL 13.5-17.9 HCT 50.4 41.0-54.0 MCV 95.5 fL 80.0-100.0 MCH 32.0 pg 27.0-33.0 MCHC 33.5 g/dL 32.0-37.5 PLT 223 150-400 MPV 10.9 fL 9.1-13.0 RDW 14.0 11.5-14.5 Jun 22, 2024 06:10 PM [facility] COMPREHENSIVE METABOLIC PANEL+MG Specimen Type: PLASMA No comment entered. Ordering Provider: JEVON ZAZUETA Report Released Date/Time: Jun 22, 2024 05:51 PM Reporting Lab: [facility] [address] Performing Lab: [facility] [address] CREATININE 0.7 mg/dL 0.7-1.2 UREA NITROGEN 17 [...] >90 >60 Jun 21, 2024 06:48 PM [facility] URINALYSIS Specimen Type: URINE No comment entered. Ordering Provider: DELIA MARTINEZ Report Released Date/Time: Jun 21, 2024 05:45 PM Reporting Lab: [facility] [address] Performing Lab: [facility] [address] URINE COLOR YELLOW SPECIFIC GRAVITY 1.041 H [...] 500 NEGATIVE Jun 21, 2024 05:34 PM [facility] POC CREATININE Specimen Type: BLOOD No comment entered. Ordering Provider: DELIA MARTINEZ Report Released Date/Time: Jun 21, 2024 06:07 PM Reporting Lab: [facility] [address] Performing Lab: [facility] [address] POC CREATININE 1.1 mg/dL 0.6-1.3 Jun 21, 2024 05:30 PM [facility] POC ABG/LACTATE Specimen Type: VENOUS BLOOD No comment entered. Ordering Provider: DELIA MARTINEZ Report Released Date/Time: Jun 21, 2024 06:07 PM Reporting Lab: [facility] [address] Performing Lab: [facility] [address] POC PH 7.470 H 7.31-7.41 POC PCO2 31.2 mm[Hg] L 41.00-51 .0 0 POC PO2 46 mm[Hg] H 35.0-40.0 POC TCO2 24 mmol/L 24.0-29.0 POC HCO3 22.7 mmol/L L 23.0-28.0 POC BE ECT -1 mmol/L POC SO2 85 H 70-75 POC LACTATE 1.85 mmol/L 0.90-1.70 Jun 21, 2024 05:24 PM [facility] PROTHROMBIN TIME/INR Specimen Type: PLASMA No comment entered. Ordering Provider: DELIA MARTINEZ Report Released Date/Time: Jun 21, 2024 05:30 PM Reporting Lab: [facility] [address] Performing Lab: [facility] [address] .INR 1.2 H 0.8-1.1 .PT 13.9 s H 9.4-12.5 Jun 21, 2024 05:24 PM [facility] LIPASE Specimen Type: PLASMA No comment entered. Ordering Provider: DELIA MARTINEZ Report Released Date/Time: Jun 21, 2024 05:30 PM Reporting Lab: [facility] [address] Performing Lab: [facility] [address] LIPASE 32 U/L <60 Jun 21, 2024 05:24 PM [facility] EXTRA GOLD GEL TUBE Specimen Type: SERUM No comment entered. Ordering Provider: DELIA MARTINEZ Report Released Date/Time: Jun 21, 2024 05:41 PM Reporting Lab: [facility] [phone] Performing Lab: [facility] [address] EXTRA GOLD GEL TUBE RECEIVED Jun 21, 2024 05:24 PM [facility] COMPREHENSIVE METABOLIC PANEL+MG Specimen Type: PLASMA No comment entered. Ordering Provider: DELIA MARTINEZ Report Released Date/Time: Jun 21, 2024 05:30 PM Reporting Lab: [facility] [address] Performing Lab: [facility] [address] CREATININE 0.9 mg/dL 0.7-1.2 UREA NITROGEN 29 [...] mg/dL <0.5 Jun 21, 2024 05:24 PM [facility] CBC & DIFF Specimen Type: BLOOD Comment: Manual Differential Performed Ordering Provider: DELIA MARTINEZ Report Released Date/Time: Jun 21, 2024 05:30 PM Reporting Lab: [facility] [address] Performing Lab: [facility] [address] WBC 21.3 H 4.0-11.0 RBC 5.48 4.60-6.20 [...] MORPHOLOGY PRESENT Jun 08, 2024 10:59 AM [facility] PROTHROMBIN TIME/INR Specimen Type: PLASMA No comment entered. Ordering Provider: MARYBETH POWELL Report Released Date/Time: May 28, 2024 09:02 AM Reporting Lab: [facility] [address] Performing Lab: [facility] [address] .INR 1.0 0.8-1.1 .PT 11.8 s 9.4-12.5 Jun 08, 2024 10:59 AM [facility] CBC Specimen Type: BLOOD No comment entered. Ordering Provider: MARYBETH POWELL Report Released Date/Time: May 28, 2024 09:02 AM Reporting Lab: [facility] [address] Performing Lab: [facility] [address] WBC 16.1 H 4.0-11.0 RBC 5.02 4.60-6.20 HGB 16.0 g/dL 13.5-17.9 HCT 47.1 41.0-54.0 MCV 93.8 fL 80.0-100.0 MCH 31.9 pg 27.0-33.0 MCHC 34.0 g/dL 32.0-37.5 PLT 228 150-400 MPV 10.3 fL 9.1-13.0 RDW 14.6 H 11.5-14.5 Jun 08, 2024 10:59 AM [facility] HEMOGLOBIN A1C Specimen Type: BLOOD Comment: Values [...] 2024 09:02 AM Reporting Lab: [facility] [address] Performing Lab: [place] [id number] HEMOGLOBIN A1C 4.9 4.0-6.0 Jun 08, 2024 10:59 AM [facility] BASIC METABOLIC PANEL+MG Specimen Type: PLASMA No comment entered. Ordering Provider: MARYBETH POWELL Report Released Date/Time: May 28, 2024 09:02 AM Reporting Lab: [facility] [phone] Performing Lab: [facility] [phone] CREATININE 0.9 mg/dL 0.7-1.2 UREA NITROGEN 15 mg/dL 8-26 GLUCOSE 93 mg/dL 70-100 SODIUM 139 mmol/L 136-145 POTASSIUM 3.7 mmol/L 3.5-5.1 CHLORIDE 106 mmol/L 98-107 CO2 25 mmol/L 22-29 CALCIUM 9.8 mg/dL 8.4-10.2 MAGNESIUM 2.1 mg/dL 1.6-2.6 ANION GAP 8 mmol/L 5-15 .CREAT EGFR(CKD-EPI) >90 >60 May 21, 2024 06:59 AM [facility] BASIC METABOLIC PANEL+MG Specimen Type: PLASMA No comment entered. Ordering Provider: GOLDIE CABRERA Report Released Date/Time: May 15, 2024 08:34 AM Reporting Lab: [facility] [phone] Performing Lab: [facility] [phone] CREATININE 0.9 mg/dL 0.7-1.2 UREA NITROGEN 18 [...] and tobacco- related health factors from the [facility] where the Encounter took place. Current Smoking Status This section includes the most current smoking, or tobacco-related health factor, from the [place] facility where the Encounter took place. Date/Time Current Smoking Status Comment Facil ity May 15, 2024 08:30 AM VA-TOBACCO FORMER USER [facility] Tobacco Use History This section includes a history of the smoking, or tobacco-related health factors, that were collected on or before the date of the Encounter. The data comes from the [facility] where the Encounter took place. 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 [facility] May 06, 2023 11:30 AM VA-TOBACCO [...] 2 VIEWS PA AND LAT: FLACA WEAVER [id number] -1950 M Exm Date: JUL 08, 2024@10:09 Req Phys: KATELYNN PERSON Pat Loc: 2KG/07-08-2024@11:49 Img Loc: MAIN X-RAY Service: [facility] [place] [address] (Case 24 COMPLETE) CHEST 2 VIEWS PA AND LAT (RAD Detailed) CPT:86859 Reason for Study: Uptrending WBC, POD 5 [...] 08, 2024 Date Verified: JUL 08, 2024 Senior Architectural Designer E-Sig: Report: CHEST 2 VIEWS PA AND LAT HISTORY: Uptrending WBC, POD 5 COMPARISON: CT chest 11/12/2022 TECHNIQUE: Frontal and lateral views of the chest, submitted to the [place] National [facility] (NTP) for interpretation. FINDINGS: Lungs: Clear. No focal consolidation. No pulmonary edema. Pleura: No pleural effusion or pneumothorax. Mediastinum: Normal size and contour. Bones: Unremarkable. Impression: No acute cardiopulmonary disease. READING PHYSICIAN: Sarbjit Vaughn M.D. -[phone] 07/08/2024 12:46 EST [facility] National Teleradiology Program [phone] (For Medical Practitioner Use Only) Attention Patients / Veterans: If you have questions or concerns about these test results, please contact your ordering provider or primary care team. Primary Interpreting Staff: RADIOLOGY,OUTSIDE SERVICE, Staff Physician / RADIOLOGY,OUTSIDE SERVICE [facility] Jul 08, 2024 10:[address] (AP) ABDOMEN/PELVIS W CONTRAST: FLACA WEAVER [id number] -1950 M Exm Date: JUL 08, 2024@10:00 Req Phys: KATELYNN PERSON Pat Loc: 2KG/07-08-2024@12:07 Img Loc: CT IMAGING Service: [facility] [place] [address] (Case 22 COMPLETE) CT (AP) ABDOMEN/PELVIS W CONTRAST(CT Detailed) CPT:43656 Contrast Media : Non-ionic Iodinated Reason for [...] PLASMA .CREAT EGFR(CKD-E >90 Ref: >=60 Allergies: ([place] only) TERAZOSIN (Mar 13, 2015) Report Status: Verified Date Reported: JUL 08, 2024 Date Verified: JUL 08, 2024 Senior Architectural Designer E-Sig: Report: CT (AP) ABDOMEN/PELVIS W CONTRAST HISTORY: POD 5, Uptrending WBC - Concern for Abscess/other infection COMPARISON: June 21, 2024 TECHNIQUE: CT abdomen and pelvis was performed after intravenous contrast. Axial, sagittal and coronal reformatted images. The study was performed at the local [place] facility and images were sent to the [place] National Teleradiology Program (NTP) for interpretation. Number [...] as noted above READING PHYSICIAN: Celestino Blanc -[phone] 07/08/2024 13:04 [facility] National Teleradiology Program [phone] (For Medical Practitioner Use Only) Attention Patients / Veterans: If you have questions or concerns about these test results, please contact your ordering provider or primary care team. Primary Interpreting Staff: RADIOLOGY,OUTSIDE SERVICE, Staff Physician / RADIOLOGY,OUTSIDE SERVICE [facility] Jun 22, 2024 11:49 AM ABSCESS DRAIN PLACEMENT PERITONEAL (P): FLACA WEAVER [id number] -1950 M Exm Date: JUN 22, 2024@11:49 Req Phys: ANGELA HOLDEN Loc: [facility]/06-22-2024@17:14 Img Loc: INTERVENTIONAL RADIOLOGY Service: [facility] [place] [address] (Case [id number] COMPLETE) IR PERITONEAL/RETROPERITONEAL PER(ANI Detailed) CPT:86067 Reason for Study: diverticulitis with abscess (Case 3570 COMPLETE) IR MOD SEDATION 10-22 MIN (ANI Detailed) CPT:37974 Clinical History: IS NOT under investigation for COVID-19 or is COVID-19 negative 73 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 please place abscess drain. Contact number for responsible provider who can be reached for any questions or notifications of critical findings: [phone] n/a LAST CREATININE 0.9 (06/21/24) Report Status: Verified Date Reported: JUN 22, 2024 Date Verified: JUN 22, 2024 Senior Architectural Designer E-Sig:/ES/LISA PENDLETON MD Report: PROCEDURES: Placement of [...] A pre-procedural Time-Out was performed per [facility] policy. The patient was placed in the supine position on the CT table. Preprocedural scan performed. The suprapubic region/lower abdominal wall was sterilely prepped and draped in the usual fashion.1% lidocaine without epinephrine was used for local anesthesia. Using real-time CT fluoroscopy, a 5 Egyptian ParaShoot catheter was advanced into the collection in the left pelvis. A wire was coiled in the collection. The tract into the collection was dilated to accommodate the 12 Egyptian locking pigtail drainage catheter. There was return [...] Interpreting Staff: LISA PENDLETON MD, RADIOLOGIST (Senior Architectural Designer) /JRT LISA PENDLETON [facility] Jun 22, 2024 11:[address] NEEDLE PLACEMENT (P): FLACA WEAVER [id number] -1950 M Exm Date: JUN 22, 2024@11:48 Req Phys: ANGELA HOLDEN Loc: [facility]/06-22-2024@17:14 Img Loc: CT IMAGING Service: [facility] [place] [address] (Case [id number] COMPLETE) CT SCAN FOR NEEDLE PLACEMENT (CT Detailed) CPT:40968 Reason for Study: l pelvic abscess drain Clinical History: Report Status: Verified Date Reported: JUN 22, 2024 Date Verified: JUN 22, 2024 Senior Architectural Designer E-Sig:/ES/LISA PENDLETON MD Report: PROCEDURES: Placement of [...] A pre-procedural Time-Out was performed per [facility] policy. The patient was placed in the supine position on the CT table. Preprocedural scan performed. The suprapubic region/lower abdominal wall was sterilely prepped and draped in the usual fashion.1% lidocaine without epinephrine was used for local anesthesia. Using real-time CT fluoroscopy, a 5 Egyptian PetMDesis catheter was advanced into the collection in the left pelvis. A wire was coiled in the collection. The tract into the collection was dilated to accommodate the 12 Egyptian locking pigtail drainage catheter. There was return [...] Interpreting Staff: LISA PENDLETON MD, RADIOLOGIST (Senior Architectural Designer) /JRT LISA PENDLETON [facility] Jun 21, 2024 06:[address] (AP) ABDOMEN/PELVIS (P): FLACA WEAVER [id number] -1950 M Exm Date: JUN 21, 2024@18:09 Req Phys: DELIA MARTINEZ Loc: [facility] EMERGENCY DEPT WALK-IN (Re Img Loc: CT IMAGING Service: [place] [address] (Case [id number] COMPLETE) CT (AP) ABDOMEN/PELVIS W CONTRAST(CT Detailed) CPT:37943 Contrast Media : Non-ionic Iodinated Reason for [...] PLASMA .CREAT EGFR(CKD-E >90 Ref: >=60 Allergies: ([place] only) TERAZOSIN (Mar 13, 2015) Defer to [...] 21, 2024 Date Verified: JUN 21, 2024 Senior Architectural Designer E-Sig:/ES/CARLOS A CUNNINGHAM DO Report: EXAMINATION: CT [...] Interpreting Staff: CARLOS A CUNNINGHAM DO, RADIOLOGIST (Senior Architectural Designer) /KMB CARLOS A CUNNINGHAM [facility] May 25, 2024 09:00 AM IR FISTULOGRAM OR SINOGRAM : FLACA WEAVER [id number] -1950 M Exm Date: MAY 25, 2024@09:00 Req Phys: AMINTA PRUITT Loc: [facility] INTERVENTIONAL RADIO Img Loc: INTERVENTIONAL RADIOLOGY Service: [place] [address] (Case [id number] COMPLETE) IR FISTULOGRAM OR SINOGRAM (ANI Detailed) CPT:38238 Contrast Media : unspecified contrast media Reason [...] 2024 Date Verified: MAY 25, 2024 Senior Architectural Designer E-Sig:/ES/DAVID BURNS MD Report: PROCEDURES 05/25/2024 9:48 [...] Interpreting Staff: DAVID BURNS MD, RADIOLOGIST (Senior Architectural Designer) /CSS DAVID BURNS [facility] May 25, 2024 08:[address] (AP) ABDOMEN/PELVIS (P): FLACA WEAVER [id number] -1950 M Exm Date: MAY 25, 2024@08:23 Req Phys: DAVID BURNS Pat Loc: [facility] INTERVENTIONAL RADIO Img Loc: CT IMAGING Service: [place] [address] (Case [id number] COMPLETE) CT (AP) ABDOMEN/PELVIS W/O CONTRA(CT Detailed) CPT:48960 Reason for Study: assess abscess and possible [...] PLASMA .CREAT EGFR(CKD-E >90 Ref: >=60 Allergies: ([place] only) TERAZOSIN (Mar 13, 2015) Report Status: Verified Date Reported: MAY 25, 2024 Date Verified: MAY 25, 2024 Senior Architectural Designer E-Sig:/ES/JESSENIA GOODMAN MD Report: EXAM: CT abdomen and pelvis without intravenous contrast. 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 TECHNIQUE: Helical acquisition of image data was performed for the abdomen and pelvis without intravenous contrast. Dose: 512.57 mGy*cm COMPARISON: CT abdomen pelvis with contrast 05/11/[address] abdomen pelvis 04/23/2024.; CT abdomen pelvis 05/05/2020 FINDINGS: CUFF SETTER: Pigtail catheter projecting over the left hemipelvis [...] Interpreting Staff: JESSENIA GOODMAN MD, RADIOLOGIST (Senior Architectural Designer) Primary Interpreting Resident: YOHANNES MELO DO, MARKETING OPERATIONS CONSULTANT /JESSENIA LOUIE [facility] Pathology Reports: +/- 30 days [...] COMPLETED $APHDR Reporting Lab: [facility] [CLIA# [id number]] [place] [address] - - - - - - - [...] - PATHOLOGY REPORT Accession No. [id number] - - - - - - - [...] - PATHOLOGY REPORT Accession No. [id number] - - - - - - - [...] Second circumferential surgical margin, en face; E-F: Senior Teller diverticula; G: Senior Teller section of mesentery; H: Random mortician supplies sales representative section of additional adipose tissue [...] One colonic tissue ring, bisected transversely. [facility]: Microscopic examination performed. DIAGNOSIS: 1. Colon, sigmoid, sigmoidectomy-- - Diverticulosis with perforation and focal abscess formation 2. Colon, anastomotic rings, excision-- - Viable colonic mucosa without diagnostic abnormality /es/ EDUARDO PALOMARES MD STAFF PATHOLOGIST Signed Jul 06, 2024@10:40 Performing Laboratory: Surgical Pathology Report Performed By: [facility] [CLIA# [id number]] [place] [address] $FTR - - - - - - [...] - - - - - - - LFACA WEAVER STANDARD FORM 515 ID:[id number] SEX:M :1950 AGE: 73 LOC:[id number] ADM:Jun DX:DIVERTICULITIS PCP: Jatinder Cabrera /alexi/ DEUARDO PALOMARES MD STAFF PATHOLOGIST Signed: 07/06/2024 10:40 EDUARDO PALOMARES [facility] Jun 22, 2024 01:15 PM LR MICROBIOLOGY RE PORT: Reporting Lab: [facility] [CLIA# [id number]] [place] [address] Accession [UID]: [id number] [[id number]] Received: Jun 22, 2024@13:38 Collection sample: FLUID Collection date: Jun 22, 2024 13:15 Provider: ANGELA HOLDEN Comment on specimen: LLQ ABSCESS, RECEIVED IN ANAEROBIC TRANSPORT VIAL Test(s) ordered: GRAM STAIN.................... completed: Jun 22, 2024 15:03 CULTURE & SUSCEPTIBILITY...... completed: Jun 25, 2024 * BACTERIOLOGY FINAL REPORT => Jun 25, 2024 10:56 TECH CODE: [id number] GRAM STAIN: DIRECT SMEAR of specimen before [...] -=--=--=--=--=--=--=-- Performing Laboratory: Bacteriology Report Performed By: [facility] [CLIA# [id number]] [place] [address] [facility] Jun 22, 2024 01:15 PM LR MICROBIOLOGY RE PORT: Reporting Lab: [facility] [CLIA# [id number]] [place] [address] Accession [UID]: [id number] [[id number]] Received: Jun 22, 2024@13:38 Collection sample: FLUID Collection date: Jun 22, 2024 13:15 Provider: ANGELA HOLDEN Comment on specimen: LLQ ABSCESS, RECEIVED IN ANAEROBIC TRANSPORT VIAL Test(s) ordered: ANAEROBIC CULTURE............. completed: Jun 28, 2024 * BACTERIOLOGY FINAL REPORT => Jun 28, 2024 10:08 TECH CODE: [id number] CULTURE RESULTS: HEAVY GROWTH MIXED ANAEROBES Comment: including the followin+ Bacteroides fragilis 4+ Bacteroides vulgatus 4+ Clostridium innocuum Beta-lactamase negative 4+ Bacteroides caccae 4+ Parvimonas micra 4+ Bacteroides uniformis 4+ Gemella morbillorum 4+ anaerobic small, Gram Positive Rods 4+ Bacteroides thetaiotaomicron Standard workup is now complete. Bacteriology Remark(s): THIS REPORT IS FINAL =--=--=--=--=--=--=--=--=--= --=--=--=--=--=--=--=--=--=- -=--=--=--=--=--=--=-- Performing Laboratory: Bacteriology Report Performed By: [facility] [CLIA# [id number]] [place] [address] [facility] Jun 21, 2024 06:12 PM LR MICROBIOLOGY RE PORT: Reporting Lab: [facility] [CLIA# [id number]] [place] [address] Accession [UID]: [id number] [[id number]] Received: Jun 21, 2024@18:12 Collection sample: BLOOD [...] -=--=--=--=--=--=--=-- Performing Laboratory: Bacteriology Report Performed By: [facility] [CLIA# [id number]] [place] [address] [facility] Jun 21, 2024 06:11 PM LR MICROBIOLOGY RE PORT: Reporting Lab: [facility] [CLIA# [id number]] [place] [address] Accession [UID]: [id number] [[id number]] Received: Jun 21, 2024@18:11 Collection sample: BLOOD [...] -=--=--=--=--=--=--=-- Performing Laboratory: Bacteriology Report Performed By: [facility] [CLIA# [id number]] [place] [address] [facility] Jun 08, 2024 11:00 AM LR MICROBIOLOGY RE PORT: Reporting Lab: [facility] [CLIA# [id number]] [place] [address] Accession [UID]: [id number] [[id number]] Received: Jun 08, 2024@11:00 Collection sample: URINE Collection date: Jun 08, 2024 11:00 Provider: MARYBETH POWELL Comment on specimen: urine Test(s) ordered: CULTURE & SUSCEPTIBILITY...... completed: Jun 09, 2024 * BACTERIOLOGY FINAL REPORT => Jun 09, 2024 19:12 TECH CODE: [id number] CULTURE RESULTS: ESCHERICHIA COLI - Quantity: >100,000 [...] -=--=--=--=--=--=--=-- Performing Laboratory: Bacteriology Report Performed By: [facility] [CLIA# [id number]] [place] [address] [facility] Encounter Notes: All associated encounter notes This section contains the clinical notes associated to the Encounter. Date/Time Encounter Note(s) Provider Source Jun 19, 2024 07:30 AM UROLOGY NOTE: LOCAL TITLE: UROLOGY PRE OPERATIVE CONFERENCE STANDARD TITLE: UROLOGY NOTE DATE OF NOTE: JUN 19, 2024@07:30 ENTRY DATE: JUN 19, 2024@07:30:52 AUTHOR: GILLIAN WOO EXP COSIGNER: URGENCY: STATUS: COMPLETED This case was presented at our weekly intradepartmental pre-operative conference. The patient's pertinent history, physical exam, imaging, laboratory values and pathology reports were reviewed. We agreed that the best management for this pt consists of: Ureteral Stents for C/R Present Drs: Martina Lopez Haggart, Mp Cross Fisher /alexi/ Gillian Woo MD Resident, Urology Signed: 06/19/2024 07:31 GILLIAN WOO [facility]
--- OUTSIDE RECORDS SUMMARY | 2024-07-16 07:28 | XMS_ITS | Encounter Summary ---
Author Name [facility] [place] Address [address] [place] [address] Care Team Providers Care Catalyst Recovery Operator Name Role Phone JATINDER CABRERA Primary [...] PART A Sep 29, 2016 PART A [id number] [phone] JUDY WEAVER PATIENT Selected Encounter This section includes the information on record at [place] for the Encounter. Date/Time Encounter Type Encounter Description Reason Provider Source Jun 13, 2024 08:18 AM HC PRO PHONE CALL 5-10 MIN TELEPHONE/SURGERY ICD-10-CM Z71.89 Other specified counseling RAMIRO FABIAN Encounter Template Text not used by [place] Assessments - Encounter Diagnoses This section includes the primary and secondary diagnoses documented for the Encounter. Date/Time Primary/Secondary Diagnosis Diagnosis Name Provider Source Jun 13, 2024 08:18 AM PRIMARY Other specified counseling RAMIRO FABIAN [facility] Plan of Treatment: Future Appointments (+ 6 months) and Future Tests (+/- 45 days) The Plan of Treatment section includes future care activities for the [facility] [place] [facility]. This section includes future appointments [...] 21, 2024 04:48 PM AMBULATORY - MEDICINE [facility] Jun 21, 2024 05:45 PM AMBULATORY - NONE [facility] Jun 27, 2024 07:00 AM AMBULATORY - NONE [facility] Jun 27, 2024 07:30 AM AMBULATORY - MEDICINE [facility] Jun 27, 2024 08:00 AM AMBULATORY MEDICINE [facility] Jul 03, 2024 05:55 AM AMBULATORY - NONE [facility] Jul 13, 2024 08:15 AM AMBULATORY NONE [facility] Active, Pending, and Scheduled Orders This [...] & SCREEN - LAB BLOOD SP [facility] Jun 08, 2024 09:57 AM Laboratory - Chemi stry Order URINALYSIS URINE WC ONCE [facility] Jun 12, 2024 12:00 AM Laboratory - Chemi stry Order BNP PLASMA SP ONCE [facility] Jun 21, 2024 05:45 PM Laboratory - Blood Bank Order TYPE & SCREEN - LAB BLOOD [facility] Jul 03, 2024 12:00 AM Laboratory - Blood Bank Order TYPE & SCREEN - LAB BLOOD [facility] Jul 16, 2024 12:00 AM Laboratory - Chemi stry Order CBC BLOOD SP ONCE [facility] Jul 17, 2024 12:00 AM Laboratory - Chemi stry Order BASIC METABOLIC PANEL+MG PLASMA SP ONCE [facility] Lab Results: +/- 30 days [...] Comment Jul 10, 2024 07:16 AM [facility] PHOSPHORUS Specimen Type: PLASMA No comment entered. Ordering Provider: JUANCARLOS ECHOLS S Report Released Date/Time: Jul 09, 2024 12:23 PM Reporting Lab: [facility] [address] Performing Lab: [facility] [address] PHOSPHORUS 3.0 mg/dL 2.3-4.3 Jul 10, 2024 07:16 AM [facility] BASIC METABOLIC PANEL+MG Specimen Type: PLASMA No comment entered. Ordering Provider: JUANCARLOS ECHOLS S Report Released Date/Time: Jul 09, 2024 12:23 PM Reporting Lab: [facility] [address] Performing Lab: [facility] [address] CREATININE 0.7 mg/dL 0.7-1.2 UREA NITROGEN 27 mg/dL H 8-26 GLUCOSE 104 mg/dL H 70-100 SODIUM 133 mmol/L L 136-145 POTASSIUM 4.3 mmol/L 3.5-5.1 CHLORIDE 102 mmol/L 98-107 CO2 19 mmol/L L 22-29 CALCIUM 10.1 mg/dL 8.4-10.2 MAGNESIUM 1.9 mg/dL 1.6-2.6 ANION GAP 12 mmol/L 5-15 .CREAT EGFR(CKD-EPI) >90 >60 Jul 10, 2024 07:15 AM [facility] CBC Specimen Type: BLOOD No comment entered. Ordering Provider: JUANCARLOS ECHOLS S Report Released Date/Time: Jul 09, 2024 12:23 PM Reporting Lab: [facility] [address] Performing Lab: [facility] [address] WBC 18.8 H 4.0-11.0 RBC 5.08 4.60-6.20 HGB 15.9 g/dL 13.5-17.9 HCT 46.8 41.0-54.0 MCV 92.1 fL 80.0-100.0 MCH 31.3 pg 27.0-33.0 MCHC 34.0 g/dL 32.0-37.5 PLT 479 H 150-400 MPV 10.2 fL 9.1-13.0 RDW 13.7 11.5-14.5 Jul 09, 2024 07:08 AM [facility] CBC Specimen Type: BLOOD No comment entered. Ordering Provider: QUYNH WEISS Report Released Date/Time: Jul 08, 2024 06:18 PM Reporting Lab: [facility] [address] Performing Lab: [facility] [address] WBC 15.3 H 4.0-11.0 RBC 4.91 4.60-6.20 HGB 15.1 g/dL 13.5-17.9 HCT 45.7 41.0-54.0 MCV 93.1 fL 80.0-100.0 MCH 30.8 pg 27.0-33.0 MCHC 33.0 g/dL 32.0-37.5 PLT 443 H 150-400 MPV 10.0 fL 9.1-13.0 RDW 13.5 11.5-14.5 Jul 08, 2024 10:50 AM [facility] URINALYSIS Specimen Type: URINE No comment entered. Ordering Provider: KATELYNN PERSON Report Released Date/Time: Jul 08, 2024 08:41 AM Reporting Lab: [facility] [address] Performing Lab: [facility] [address] URINE COLOR YELLOW SPECIFIC GRAVITY >1.050 H [...] NEGATIVE Jul 08, 2024 09:54 AM [facility] CBC Specimen Type: BLOOD Comment: Specimen received in Lab at: 0952 Ordering Provider: JUANCARLOS ECHOLS Report Released Date/Time: Jul 07, 2024 04:49 PM Reporting Lab: [facility] [address] Performing Lab: [facility] [address] WBC 17.5 H 4.0-11.0 RBC 4.88 4.60-6.20 HGB 14.9 g/dL 13.5-17.9 HCT 45.7 41.0-54.0 MCV 93.6 fL 80.0-100.0 MCH 30.5 pg 27.0-33.0 MCHC 32.6 g/dL 32.0-37.5 PLT 472 H 150-400 MPV 10.2 fL 9.1-13.0 RDW 13.7 11.5-14.5 Jul 08, 2024 09:54 AM [facility] PHOSPHORUS Specimen Type: PLASMA Comment: Specimen received in Lab at: 0952 Ordering Provider: JUANCARLOS ECHOLS Report Released Date/Time: Jul 07, 2024 04:49 PM Reporting Lab: [facility] [address] Performing Lab: [facility] [address] PHOSPHORUS 2.6 mg/dL 2.3-4.3 Jul 08, 2024 09:54 AM [facility] BASIC METABOLIC PANEL+MG Specimen Type: PLASMA Comment: Specimen received in Lab at: 0952 Ordering Provider: JUANCARLOS ECHOLS Report Released Date/Time: Jul 07, 2024 04:49 PM Reporting Lab: [facility] [address] Performing Lab: [facility] [address] CREATININE 0.9 mg/dL 0.7-1.2 UREA NITROGEN 26 mg/dL 8-26 GLUCOSE 128 mg/dL H 70-100 SODIUM 134 mmol/L L 136-145 POTASSIUM 3.4 mmol/L L 3.5-5.1 CHLORIDE 100 mmol/L 98-107 CO2 24 mmol/L 22-29 CALCIUM 9.8 mg/dL 8.4-10.2 MAGNESIUM 1.8 mg/dL 1.6-2.6 ANION GAP 10 mmol/L 5-15 .CREAT EGFR(CKD-EPI) >90 >60 Jul 07, 2024 02:00 PM [facility] C DIFF PANEL Specimen Type: FECES No comment entered. Ordering Provider: JEVON ZAZUETA Report Released Date/Time: Jul 07, 2024 12:26 PM Reporting Lab: [facility] [address] Performing Lab: [facility] [address] C DIFF TOX B GENE PCR NEGATIVE Negative Jul 07, 2024 07:41 AM [facility] PHOSPHORUS Specimen Type: PLASMA No comment entered. Ordering Provider: JEVON ZAZUETA Report Released Date/Time: Jul 06, 2024 03:44 PM Reporting Lab: [facility] [address] Performing Lab: [facility] [address] PHOSPHORUS 3.1 mg/dL 2.3-4.3 Jul 07, 2024 07:41 AM [facility] BASIC METABOLIC PANEL+MG Specimen Type: PLASMA No comment entered. Ordering Provider: JEVON ZAZUETA Report Released Date/Time: Jul 06, 2024 03:44 PM Reporting Lab: [facility] [address] Performing Lab: [facility] [address] CREATININE 0.9 mg/dL 0.7-1.2 UREA NITROGEN 20 mg/dL 8-26 GLUCOSE 157 mg/dL H 70-100 SODIUM 136 mmol/L 136-145 POTASSIUM 3.7 mmol/L 3.5-5.1 CHLORIDE 102 mmol/L 98-107 CO2 21 mmol/L L 22-29 CALCIUM 9.8 mg/dL 8.4-10.2 MAGNESIUM 1.9 mg/dL 1.6-2.6 ANION GAP 13 mmol/L 5-15 .CREAT EGFR(CKD-EPI) >90 >60 Jul 07, 2024 07:40 AM [facility] CBC Specimen Type: BLOOD No comment entered. Ordering Provider: JEVON ZAZUETA Report Released Date/Time: Jul 06, 2024 03:44 PM Reporting Lab: [facility] [address] Performing Lab: [facility] [address] WBC 21.2 H 4.0-11.0 RBC 5.09 4.60-6.20 HGB 15.9 g/dL 13.5-17.9 HCT 48.3 41.0-54.0 MCV 94.9 fL 80.0-100.0 MCH 31.2 pg 27.0-33.0 MCHC 32.9 g/dL 32.0-37.5 PLT 500 H 150-400 MPV 10.3 fL 9.1-13.0 RDW 13.6 11.5-14.5 Jul 06, 2024 07:21 AM [facility] CBC Specimen Type: BLOOD No comment entered. Ordering Provider: JEVON ZAZUETA Report Released Date/Time: Jul 05, 2024 01:22 PM Reporting Lab: [facility] [address] Performing Lab: [facility] [address] WBC 18.0 H 4.0-11.0 RBC 4.83 4.60-6.20 HGB 14.6 g/dL 13.5-17.9 HCT 45.5 41.0-54.0 MCV 94.2 fL 80.0-100.0 MCH 30.2 pg 27.0-33.0 MCHC 32.1 g/dL 32.0-37.5 PLT 368 150-400 MPV 10.4 fL 9.1-13.0 RDW 13.6 11.5-14.5 Jul 06, 2024 07:21 AM [facility] PHOSPHORUS Specimen Type: PLASMA No comment entered. Ordering Provider: JEVON ZAZUETA Report Released Date/Time: Jul 05, 2024 01:22 PM Reporting Lab: [facility] [address] Performing Lab: [facility] [address] PHOSPHORUS 3.6 mg/dL 2.3-4.3 Jul 06, 2024 07:21 AM [facility] BASIC METABOLIC PANEL+MG Specimen Type: PLASMA No comment entered. Ordering Provider: JEVON ZAZUETA Report Released Date/Time: Jul 05, 2024 01:22 PM Reporting Lab: [facility] [address] Performing Lab: [facility] [address] CREATININE 0.7 mg/dL 0.7-1.2 UREA NITROGEN 12 mg/dL 8-26 GLUCOSE 108 mg/dL H 70-100 SODIUM 138 mmol/L 136-145 POTASSIUM 3.4 mmol/L L 3.5-5.1 CHLORIDE 104 mmol/L 98-107 CO2 20 mmol/L L 22-29 CALCIUM 9.3 mg/dL 8.4-10.2 MAGNESIUM 1.9 mg/dL 1.6-2.6 ANION GAP 14 mmol/L 5-15 .CREAT EGFR(CKD-EPI) >90 >60 Jul 05, 2024 07:17 AM [facility] MAGNESIUM Specimen Type: PLASMA No comment entered. Ordering Provider: JUANCARLOS ECHOLS S Report Released Date/Time: Jul 04, 2024 09:39 AM Reporting Lab: [facility] [address] Performing Lab: [facility] [address] MAGNESIUM 2.0 mg/dL 1.6-2.6 Jul 05, 2024 07:17 AM [facility] PHOSPHORUS Specimen Type: PLASMA No comment entered. Ordering Provider: JUANCARLOS ECHOLS S Report Released Date/Time: Jul 04, 2024 09:39 AM Reporting Lab: [facility] [address] Performing Lab: [facility] [address] PHOSPHORUS 2.0 mg/dL L 2.3-4.3 Jul 05, 2024 07:17 AM [facility] BASIC METABOLIC PANEL+MG Specimen Type: PLASMA No comment entered. Ordering Provider: JUANCARLOS ECHOLS S Report Released Date/Time: Jul 04, 2024 09:39 AM Reporting Lab: [facility] [address] Performing Lab: [facility] [address] CREATININE 0.7 mg/dL 0.7-1.2 UREA NITROGEN 12 mg/dL 8-26 GLUCOSE 84 mg/dL 70-100 SODIUM 135 mmol/L L 136-145 POTASSIUM 3.8 mmol/L 3.5-5.1 CHLORIDE 104 mmol/L 98-107 CO2 24 mmol/L 22-29 CALCIUM 9.3 mg/dL 8.4-10.2 MAGNESIUM 2.0 mg/dL 1.6-2.6 ANION GAP 7 mmol/L 5-15 .CREAT EGFR(CKD-EPI) >90 >60 Jul 05, 2024 07:16 AM [facility] CBC Specimen Type: BLOOD No comment entered. Ordering Provider: JUANCARLOS ECHOLS S Report Released Date/Time: Jul 04, 2024 09:39 AM Reporting Lab: [facility] [address] Performing Lab: [facility] [address] WBC 18.3 H 4.0-11.0 RBC 4.49 L 4.60-6.20 HGB 14.1 g/dL 13.5-17.9 HCT 43.4 41.0-54.0 MCV 96.7 fL 80.0-100.0 MCH 31.4 pg 27.0-33.0 MCHC 32.5 g/dL 32.0-37.5 PLT 317 150-400 MPV 10.0 fL 9.1-13.0 RDW 13.9 11.5-14.5 Jul 04, 2024 07:17 AM [facility] BASIC METABOLIC PANEL+MG Specimen Type: PLASMA No comment entered. Ordering Provider: GABINO CAMERON Report Released Date/Time: Jul 03, 2024 06:31 PM Reporting Lab: [facility] [address] Performing Lab: [facility] [address] CREATININE 0.7 mg/dL 0.7-1.2 UREA NITROGEN 16 mg/dL 8-26 GLUCOSE 129 mg/dL H 70-100 SODIUM 137 mmol/L 136-145 POTASSIUM 3.7 mmol/L 3.5-5.1 CHLORIDE 107 mmol/L 98-107 CO2 22 mmol/L 22-29 CALCIUM 9.0 mg/dL 8.4-10.2 MAGNESIUM 1.9 mg/dL 1.6-2.6 ANION GAP 8 mmol/L 5-15 .CREAT EGFR(CKD-EPI) >90 >60 Jul 04, 2024 07:17 AM [facility] PHOSPHORUS Specimen Type: PLASMA No comment entered. Ordering Provider: GABINO CAMERON Report Released Date/Time: Jul 03, 2024 06:31 PM Reporting Lab: [facility] [address] Performing Lab: [facility] [address] PHOSPHORUS 2.8 mg/dL 2.3-4.3 Jul 04, 2024 07:16 AM [facility] CBC Specimen Type: BLOOD No comment entered. Ordering Provider: GABINO CAMERON Report Released Date/Time: Jul 03, 2024 06:31 PM Reporting Lab: [facility] [address] Performing Lab: [facility] [address] WBC 20.6 H 4.0-11.0 RBC 4.63 4.60-6.20 HGB 14.2 g/dL 13.5-17.9 HCT 43.4 41.0-54.0 MCV 93.7 fL 80.0-100.0 MCH 30.7 pg 27.0-33.0 MCHC 32.7 g/dL 32.0-37.5 PLT 329 150-400 MPV 10.4 fL 9.1-13.0 RDW 13.8 11.5-14.5 Jul 04, 2024 07:16 AM [facility] CBC & DIFF Specimen Type: BLOOD Comment: Manual Differential Performed Ordering Provider: GABINO CAMERON Report Released Date/Time: Jul 03, 2024 06:31 PM Reporting Lab: [facility] [address] Performing Lab: [facility] [address] WBC 20.6 H 4.0-11.0 RBC 4.63 4.60-6.20 [...] PRESENT Jul 04, 2024 07:15 AM [facility] BNP Specimen Type: PLASMA No comment entered. Ordering Provider: GABINO CAMERON Report Released Date/Time: Jul 03, 2024 06:31 PM Reporting Lab: [facility] [address] Performing Lab: [facility] [address] BNP 292 pg/mL H <99 Jul 03, 2024 10:32 PM [facility] FINGERSTICK GLUCOSE Specimen Type: BLOOD Comment: Save Result Nurse Notified Ordering Provider: KATELYNN PERSON Report Released Date/Time: Jul 03, 2024 10:50 PM Reporting Lab: [facility] [address] Performing Lab: [facility] [address] FINGERSTICK GLUCOSE 126 mg/dL H 70-100 Jul 03, 2024 05:33 PM [facility] FINGERSTICK GLUCOSE Specimen Type: BLOOD Comment: Save Result Nurse Notified Ordering Provider: KATELYNN PERSON Report Released Date/Time: Jul 03, 2024 05:46 PM Reporting Lab: [facility] [address] Performing Lab: [facility] [address] FINGERSTICK GLUCOSE 141 mg/dL H 70-100 Jul 03, 2024 02:31 PM [facility] POC ABG/ELECTROLYTES Specimen Type: ARTERIAL BLOOD Comment: FIO2 = 97% Patient Temp: 36.0 C Sample Type = ARTERIAL Ordering Provider: MAZIN ARREDONDO Report Released Date/Time: Jul 03, 2024 01:48 PM Reporting Lab: [facility] [address] Performing Lab: [facility] [address] POC PH 7.387 7.35-7.45 POC PCO2 34.4 [...] 80.0-105.0 Jul 03, 2024 01:05 PM [facility] POC ABG/ELECTROLYTES Specimen Type: ARTERIAL BLOOD Comment: FIO2 = 53% Patient Temp: 36.2 C Sample Type = ARTERIAL Ordering Provider: MAZIN ARREDONDO Report Released Date/Time: Jul 03, 2024 01:48 PM Reporting Lab: [facility] [address] Performing Lab: [facility] [address] POC PH 7.280 L 7.35-7.45 POC PCO2 [...] 80.0-105.0 Jul 03, 2024 06:15 AM [facility] URINALYSIS Specimen Type: URINE No comment entered. Ordering Provider: MARYBETH POWELL Report Released Date/Time: Jun 12, 2024 04:01 PM Reporting Lab: [facility] [address] Performing Lab: [facility] [address] URINE COLOR YELLOW SPECIFIC GRAVITY 1.031 1.003-1.03 [...] NEGATIVE Jul 03, 2024 06:13 AM [facility] CBC Specimen Type: BLOOD No comment entered. Ordering Provider: MARYBETH POWELL Report Released Date/Time: Jun 12, 2024 03:59 PM Reporting Lab: [facility] [address] Performing Lab: [facility] [address] WBC 15.8 H 4.0-11.0 RBC 5.11 4.60-6.20 HGB 16.1 g/dL 13.5-17.9 HCT 49.1 41.0-54.0 MCV 96.1 fL 80.0-100.0 MCH 31.5 pg 27.0-33.0 MCHC 32.8 g/dL 32.0-37.5 PLT 357 150-400 MPV 9.8 fL 9.1-13.0 RDW 13.7 11.5-14.5 Jun 24, 2024 09:50 AM [facility] BASIC METABOLIC PANEL+MG Specimen Type: PLASMA Comment: Specimen received in Lab at: 0948 Ordering Provider: JEVON ZAZUETA Report Released Date/Time: Jun 23, 2024 06:07 PM Reporting Lab: [facility] [address] Performing Lab: [facility] [address] CREATININE 0.8 mg/dL 0.7-1.2 UREA NITROGEN 13 mg/dL 8-26 GLUCOSE 135 mg/dL H 70-100 SODIUM 135 mmol/L L 136-145 POTASSIUM 3.6 mmol/L 3.5-5.1 CHLORIDE 103 mmol/L 98-107 CO2 24 mmol/L 22-29 CALCIUM 9.2 mg/dL 8.4-10.2 MAGNESIUM 1.9 mg/dL 1.6-2.6 ANION GAP 8 mmol/L 5-15 .CREAT EGFR(CKD-EPI) >90 >60 Jun 24, 2024 09:50 AM [facility] CBC Specimen Type: BLOOD Comment: Specimen received in Lab at: 0948 Ordering Provider: JEVON ZAZUETA Report Released Date/Time: Jun 23, 2024 06:07 PM Reporting Lab: [facility] [address] Performing Lab: [facility] [address] WBC 15.5 H 4.0-11.0 RBC 4.93 4.60-6.20 HGB 15.2 g/dL 13.5-17.9 HCT 46.5 41.0-54.0 MCV 94.3 fL 80.0-100.0 MCH 30.8 pg 27.0-33.0 MCHC 32.7 g/dL 32.0-37.5 PLT 223 150-400 MPV 11.4 fL 9.1-13.0 RDW 13.9 11.5-14.5 Jun 23, 2024 07:52 AM [facility] COMPREHENSIVE METABOLIC PANEL+MG Specimen Type: PLASMA No comment entered. Ordering Provider: JEVON ZAZUETA Report Released Date/Time: Jun 22, 2024 05:51 PM Reporting Lab: [facility] [address] Performing Lab: [facility] [address] CREATININE 0.7 mg/dL 0.7-1.2 UREA NITROGEN 16 [...] >60 Jun 23, 2024 07:52 AM [facility] CBC & DIFF Specimen Type: BLOOD Comment: Automated Differential Performed Ordering Provider: JEVON ZAZUETA Report Released Date/Time: Jun 22, 2024 05:51 PM Reporting Lab: [facility] [address] Performing Lab: [facility] [address] WBC 14.9 H 4.0-11.0 RBC 5.09 4.60-6.20 [...] 0.0-0.1 Jun 22, 2024 06:10 PM [facility] CBC Specimen Type: BLOOD No comment entered. Ordering Provider: JEVON ZAZUETA Report Released Date/Time: Jun 22, 2024 05:51 PM Reporting Lab: [facility] [address] Performing Lab: [facility] [address] WBC 16.9 H 4.0-11.0 RBC 5.28 4.60-6.20 HGB 16.9 g/dL 13.5-17.9 HCT 50.4 41.0-54.0 MCV 95.5 fL 80.0-100.0 MCH 32.0 pg 27.0-33.0 MCHC 33.5 g/dL 32.0-37.5 PLT 223 150-400 MPV 10.9 fL 9.1-13.0 RDW 14.0 11.5-14.5 Jun 22, 2024 06:10 PM [facility] COMPREHENSIVE METABOLIC PANEL+MG Specimen Type: PLASMA No comment entered. Ordering Provider: JEVON ZAZUETA Report Released Date/Time: Jun 22, 2024 05:51 PM Reporting Lab: [facility] [address] Performing Lab: [facility] [address] CREATININE 0.7 mg/dL 0.7-1.2 UREA NITROGEN 17 [...] >60 Jun 21, 2024 06:48 PM [facility] URINALYSIS Specimen Type: URINE No comment entered. Ordering Provider: DELIA MARTINEZ Report Released Date/Time: Jun 21, 2024 05:45 PM Reporting Lab: [facility] [address] Performing Lab: [facility] [address] URINE COLOR YELLOW SPECIFIC GRAVITY 1.041 H [...] NEGATIVE Jun 21, 2024 05:34 PM [facility] POC CREATININE Specimen Type: BLOOD No comment entered. Ordering Provider: DELIA MARTINEZ Report Released Date/Time: Jun 21, 2024 06:07 PM Reporting Lab: [facility] [address] Performing Lab: [facility] [address] POC CREATININE 1.1 mg/dL 0.6-1.3 Jun 21, 2024 05:30 PM [facility] POC ABG/LACTATE Specimen Type: VENOUS BLOOD No comment entered. Ordering Provider: DELIA MARTINEZ Report Released Date/Time: Jun 21, 2024 06:07 PM Reporting Lab: [facility] [address] Performing Lab: [facility] [address] POC PH 7.470 H 7.31-7.41 POC PCO2 31.2 mm[Hg] L 41.00-51 .0 0 POC PO2 46 mm[Hg] H 35.0-40.0 POC TCO2 24 mmol/L 24.0-29.0 POC HCO3 22.7 mmol/L L 23.0-28.0 POC BE ECT -1 mmol/L POC SO2 85 H 70-75 POC LACTATE 1.85 mmol/L 0.90-1.70 Jun 21, 2024 05:24 PM [facility] PROTHROMBIN TIME/INR Specimen Type: PLASMA No comment entered. Ordering Provider: DELIA MARTINEZ Report Released Date/Time: Jun 21, 2024 05:30 PM Reporting Lab: [facility] [address] Performing Lab: [facility] [address] .INR 1.2 H 0.8-1.1 .PT 13.9 s H 9.4-12.5 Jun 21, 2024 05:24 PM [facility] LIPASE Specimen Type: PLASMA No comment entered. Ordering Provider: DELIA MARTINEZ Report Released Date/Time: Jun 21, 2024 05:30 PM Reporting Lab: [facility] [address] Performing Lab: [facility] [address] LIPASE 32 U/L <60 Jun 21, 2024 05:24 PM [facility] EXTRA GOLD GEL TUBE Specimen Type: SERUM No comment entered. Ordering Provider: DELIA MARTINEZ Report Released Date/Time: Jun 21, 2024 05:41 PM Reporting Lab: [facility] [address] Performing Lab: [facility] [address] EXTRA GOLD GEL TUBE RECEIVED Jun 21, 2024 05:24 PM [facility] COMPREHENSIVE METABOLIC PANEL+MG Specimen Type: PLASMA No comment entered. Ordering Provider: DELIA MARTINEZ Report Released Date/Time: Jun 21, 2024 05:30 PM Reporting Lab: [facility] [address] Performing Lab: [facility] [address] CREATININE 0.9 mg/dL 0.7-1.2 UREA NITROGEN 29 [...] <0.5 Jun 21, 2024 05:24 PM [facility] CBC & DIFF Specimen Type: BLOOD Comment: Manual Differential Performed Ordering Provider: DELIA MARTINEZ Report Released Date/Time: Jun 21, 2024 05:30 PM Reporting Lab: [facility] [address] Performing Lab: [facility] [address] WBC 21.3 H 4.0-11.0 RBC 5.48 4.60-6.20 [...] PRESENT Jun 08, 2024 10:59 AM [facility] PROTHROMBIN TIME/INR Specimen Type: PLASMA No comment entered. Ordering Provider: MARYBETH POWELL Report Released Date/Time: May 28, 2024 09:02 AM Reporting Lab: [facility] [phone] Performing Lab: [facility] [phone] .INR 1.0 0.8-1.1 .PT 11.8 s 9.4-12.5 Jun 08, 2024 10:59 AM [facility] CBC Specimen Type: BLOOD No comment entered. Ordering Provider: MARYBETH POWELL Report Released Date/Time: May 28, 2024 09:02 AM Reporting Lab: [facility] [phone] Performing Lab: [facility] [phone] WBC 16.1 H 4.0-11.0 RBC 5.02 4.60-6.20 HGB 16.0 g/dL 13.5-17.9 HCT 47.1 41.0-54.0 MCV 93.8 fL 80.0-100.0 MCH 31.9 pg 27.0-33.0 MCHC 34.0 g/dL 32.0-37.5 PLT 228 150-400 MPV 10.3 fL 9.1-13.0 RDW 14.6 H 11.5-14.5 Jun 08, 2024 10:59 AM [facility] HEMOGLOBIN A1C Specimen Type: BLOOD Comment: [...] 09:02 AM Reporting Lab: [facility] [phone] Performing Lab: [facility] [address] HEMOGLOBIN A1C 4.9 4.0-6.0 Jun 08, 2024 10:59 AM [facility] BASIC METABOLIC PANEL+MG Specimen Type: PLASMA No comment entered. Ordering Provider: MARYBETH POWELL Report Released Date/Time: May 28, 2024 09:02 AM Reporting Lab: [facility] [phone] Performing Lab: [facility] [address] CREATININE 0.9 mg/dL 0.7-1.2 UREA NITROGEN 15 mg/dL 8-26 GLUCOSE 93 mg/dL 70-100 SODIUM 139 mmol/L 136-145 POTASSIUM 3.7 mmol/L 3.5-5.1 CHLORIDE 106 mmol/L 98-107 CO2 25 mmol/L 22-29 CALCIUM 9.8 mg/dL 8.4-10.2 MAGNESIUM 2.1 mg/dL 1.6-2.6 ANION GAP 8 mmol/L 5-15 .CREAT EGFR(CKD-EPI) >90 >60 May 21, 2024 06:59 AM [facility] BASIC METABOLIC PANEL+MG Specimen Type: PLASMA No comment entered. Ordering Provider: GOLDIE CABRERA Report Released Date/Time: May 15, 2024 08:34 AM Reporting Lab: [facility] [phone] Performing Lab: [facility] [phone] CREATININE 0.9 mg/dL 0.7-1.2 UREA NITROGEN 18 [...] 2024 08:30 AM VA-TOBACCO FORMER USER [facility] Tobacco [...] QUIT 15 YRS OR MORE [facility] May 06, 2023 11:30 AM VA-TOBACCO FORMER USER [facility] May 06, 2023 11:30 AM VA-TOBACCO [...] 2 VIEWS PA AND LAT: FLACA WEAVER [id number] -[id number] M Exm Date: JUL 08, 2024@10:09 Req Phys: KATELYNN PERSON Pat Loc: 2KG/07-08-2024@11:49 Img Loc: MAIN X-RAY Service: [place] [address] (Case 24 COMPLETE) CHEST 2 VIEWS PA AND LAT (RAD Detailed) CPT:37157 Reason for Study: Uptrending WBC, POD 5 Clinical History: [facility] IS NOT under investigation for COVID-19 or is COVID-19 negative POD 5, work up for uptrending wbc Responsible provider name and phone number to notify for critical findings if other than user placing the order and pager listed below: User placing orders pager: Katelynn Person LAST CREATININE 0.9 (07/07/24) Report Status: Verified Date Reported: JUL 08, 2024 Date Verified: JUL 08, 2024 [employer] Developer E-Sig: Report: CHEST 2 VIEWS PA AND LAT HISTORY: Uptrending WBC, POD 5 COMPARISON: CT chest 11/12/2022 TECHNIQUE: Frontal and lateral views of the chest, submitted to the [place] National Telerad[facility] Program (NTP) for interpretation. FINDINGS: Lungs: Clear. No focal consolidation. No pulmonary edema. Pleura: No pleural effusion or pneumothorax. Mediastinum: Normal size and contour. Bones: Unremarkable. Impression: No acute cardiopulmonary disease. READING PHYSICIAN: Sarbjit Vaughn M.D. -[id number] 07/08/2024 12:46 EST [facility] National Teleradiology Program [phone] (For Medical Practitioner Use Only) Attention Patients / Veterans: If you have questions or concerns about these test results, please contact your ordering provider or primary care team. Primary Interpreting Staff: RADIOLOGY,OUTSIDE SERVICE, Staff Physician / RADIOLOGY,OUTSIDE SERVICE [facility] Jul 08, 2024 10:[address] (AP) ABDOMEN/PELVIS W CONTRAST: FLACA WEAVER [id number] -1950 M Exm Date: JUL 08, 2024@10:00 Req Phys: KATELYNN PERSON Loc: 2K/07-08-2024@12:07 Img Loc: CT IMAGING Service: [place] [address] (Case 22 COMPLETE) CT (AP) ABDOMEN/PELVIS W CONTRAST(CT Detailed) CPT:73191 Contrast Media : Non-ionic Iodinated Reason for [...] PLASMA .CREAT EGFR(CKD-E >90 Ref: >=60 Allergies: ([place] only) TERAZOSIN (Mar 13, 2015) Report Status: Verified Date Reported: JUL 08, 2024 Date Verified: JUL 08, 2024 Sharepoint Developer E-Sig: Report: CT (AP) ABDOMEN/PELVIS W CONTRAST HISTORY: POD 5, Uptrending WBC - Concern for Abscess/other infection COMPARISON: June 21, 2024 TECHNIQUE: CT abdomen and pelvis was performed after intravenous contrast. Axial, sagittal and coronal reformatted images. The study was performed at the local [place] facility and images were sent to the [place] National Teleradiology Program (NTP) for interpretation. Number [...] as noted above READING PHYSICIAN: Celestino Blanc -[id number] 07/08/2024 13:04 EST [facility] National Teleradiology Program [phone] (For Medical Practitioner Use Only) Attention Patients / Veterans: If you have questions or concerns about these test results, please contact your ordering provider or primary care team. Primary Interpreting Staff: RADIOLOGY,OUTSIDE SERVICE, Staff Physician / RADIOLOGY,OUTSIDE SERVICE [facility] Jun 22, 2024 11:49 AM ABSCESS DRAIN PLACEMENT PERITONEAL (P): FLACA WEAVER [id number] -1950 M Exm Date: JUN 22, 2024@11:49 Req Phys: ADINAANGELA Mcfarlane Pat Loc: [facility]/06-22-2024@17:14 Img Loc: INTERVENTIONAL RADIOLOGY Service: [place] [address] (Case [id number] COMPLETE) IR PERITONEAL/RETROPERITONEAL PER(ANI Detailed) CPT:87434 Reason for Study: diverticulitis with abscess (Case 3570 COMPLETE) IR MOD SEDATION 10-22 MIN (ANI Detailed) CPT:72837 Clinical History: Bard IS NOT under investigation for COVID-19 or is COVID-19 negative 73 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 please place abscess drain. Contact number for responsible provider who can be reached for any questions or notifications of critical findings: [phone] n/a LAST CREATININE 0.9 (06/21/24) Report Status: Verified Date Reported: JUN 22, 2024 Date Verified: JUN 22, 2024 Sharepoint Developer E-Sig:/ES/LISA PENDLETON MD Report: PROCEDURES: Placement [...] anesthesia. Using real-time CT fluoroscopy, a 5 Iranian Xconomy centesis catheter was advanced into the collection in the left pelvis. A wire was coiled in the collection. The tract into the collection was dilated to accommodate the 12 Iranian locking pigtail drainage catheter. There was return [...] Primary Interpreting Staff: LISA PENDLETON MD, RADIOLOGIST (Sharepoint Developer) /JRT LISA PENDLETON [facility] Jun 22, 2024 11:[address] NEEDLE PLACEMENT (P): FLACA WEAVER [id number] -1950 M Exm Date: JUN 22, 2024@11:48 Req Phys: ANGELA HOLDEN [facility] Loc: [facility]06-22-2024@17:14 Img Loc: CT IMAGING Service: [place] [address] (Case [id number] COMPLETE) CT SCAN FOR NEEDLE PLACEMENT (CT Detailed) CPT:69958 Reason for Study: l pelvic abscess drain Clinical History: Report Status: Verified Date Reported: JUN 22, 2024 Date Verified: JUN 22, 2024 Sharepoint Developer E-Sig:/ES/LISA PENDLETON MD Report: PROCEDURES: Placement [...] anesthesia. Using real-time CT fluoroscopy, a 5 Iranian CyberDefenderesis catheter was advanced into the collection in the left pelvis. A wire was coiled in the collection. The tract into the collection was dilated to accommodate the 12 Iranian locking pigtail drainage catheter. There was return [...] Primary Interpreting Staff: LISA PENDLETON MD, RADIOLOGIST (Sharepoint Developer) /JRT LISA PENDLETON [facility] Jun 21, 2024 06:[address] (AP) ABDOMEN/PELVIS (P): FLACA WEAVER [id number] -1950 M Exm Date: JUN 21, 2024@18:09 Req Phys: DELIA MARTINEZ Loc: [facility] WALK-IN (Re Im Loc: CT IMAGING Service: [place] [address] (Case [id number] COMPLETE) CT (AP) ABDOMEN/PELVIS W CONTRAST(CT Detailed) CPT:16000 Contrast Media : Non-ionic Iodinated Reason for [...] PLASMA .CREAT EGFR(CKD-E >90 Ref: >=60 Allergies: ([place] only) TERAZOSIN (Mar 13, 2015) Defer to [...] 21, 2024 Date Verified: JUN 21, 2024 Sharepoint Developer E-Sig:/ALEXI/CARLOS A CUNNINGHAM DO Report: EXAMINATION: CT [...] Interpreting Staff: CARLOS A CUNNINGHAM DO, RADIOLOGIST (Sharepoint Developer) /CARLOS A ROWELL [facility] May 25, 2024 09:00 AM IR FISTULOGRAM OR SINOGRAM : MEGFLACA YAMIL [id number] -1950 Exm Date: MAY 25, 2024@09:00 Req Phys: AMINTA PRUITT Loc: [facility] INTERVENTIONAL RADIO Img Loc: INTERVENTIONAL RADIOLOGY Service: [place] [address] (Case [id number] COMPLETE) IR FISTULOGRAM OR SINOGRAM (ANI Detailed) CPT:23448 Contrast Media : unspecified contrast media Reason [...] 25, 2024 Date Verified: MAY 25, 2024 Sharepoint Developer E-Sig:/ES/DAVID BURNS MD Report: PROCEDURES 05/25/2024 9:48 [...] Primary Interpreting Staff: DAVID BURNS MD, RADIOLOGIST (Sharepoint Developer) /CSS DAVID BURNS [facility] May 25, 2024 08:[address] (AP) ABDOMEN/PELVIS (P): FLACA WEAVER [id number] -1950 M Exm Date: MAY 25, 2024@08:23 Req Phys: DAVID BURNS Pat Loc: [facility] INTERVENTIONAL RADIO Img Loc: CT IMAGING Service: [place] [address] (Case [id number] COMPLETE) CT (AP) ABDOMEN/PELVIS W/O CONTRA(CT Detailed) CPT:07527 Reason for Study: assess abscess and possible drain removal Clinical History: no contrast per venancio Per Joint Commission Standards, by signing this diagnostic imaging request the ordering provider confirms they have considered patients age and recent imaging history. Defer to radiologist for final CT protocol. Contact number for responsible provider who can be reached for any questions or notifications of critical findings: 0402 venancio LAST 3: Collection DT Specimen Test [...] PLASMA .CREAT EGFR(CKD-E >90 Ref: >=60 Allergies: ([place] only) TERAZOSIN (Mar 13, 2015) Report Status: Verified Date Reported: MAY 25, 2024 Date Verified: MAY 25, 2024 Sharepoint Developer E-Sig:/ES/JESSENIA GOODMAN MD Report: EXAM: CT abdomen and pelvis without intravenous contrast. 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 TECHNIQUE: Helical acquisition of image data was performed for the abdomen and pelvis without intravenous contrast. Dose: 512.57 mGy*cm COMPARISON: CT abdomen pelvis with contrast 05/11/[address] abdomen pelvis 04/23/2024.; CT abdomen pelvis 05/05/2020 FINDINGS: CUSTOM STOCK MAKER: Pigtail catheter projecting over the left hemipelvis [...] Primary Interpreting Staff: JESSENIA GOODMAN MD, RADIOLOGIST (Sharepoint Developer) Primary Interpreting Resident: YOHANNES MELO DO, COLOR CHECKER /JESSENIA LOUIE [facility] Pathology Reports: +/- 30 days [...] Provider Source Jul 03, 2024 05:59 AM [facility] REPORT: LOCAL TITLE: LR SURGICAL PATHOLOGY REPORT STANDARD TITLE: PATHOLOGY REPORT DATE OF NOTE: JUL 06, 2024@10:40:48 ENTRY DATE: JUL 06, 2024@10:40:48 AUTHOR: EDUARDO PALOMARES EXP COSIGNER: URGENCY: STATUS: COMPLETED $APHDR Reporting Lab: [facility] [CLIA# [id number]] [place] [address] - - - - - - - [...] - - - PATHOLOGY REPORT Accession No. [id number] - - - - - - - [...] - PATHOLOGY REPORT Accession No. [id number] - - - - - - - [...] Second circumferential surgical margin, en face; E-F: Catalyst Recovery Operator diverticula; G: Catalyst Recovery Operator section of mesentery; H: Random construction sales representative section of additional adipose tissue [...] One colonic tissue ring, bisected transversely. [place]. [place] [place]: Microscopic examination performed. DIAGNOSIS: 1. Colon, sigmoid, sigmoidectomy-- - Diverticulosis with perforation and focal abscess formation 2. Colon, anastomotic rings, excision-- - Viable colonic mucosa without diagnostic abnormality /alexi/ EDUARDO PALOMARES MD STAFF PATHOLOGIST Signed Jul 06, 2024@10:40 Performing Laboratory: Surgical Pathology Report Performed By: [facility] [CLIA# [id number]] [place] [address] $FTR - - - - - - [...] - - FLACA WEAVER STANDARD FORM 515 ID:[id number] SEX:M :1950 AGE: 73 LOC:34844 ADM:Jun DX:DIVERTICULITIS PCP: Jatinder Cabrera /alexi/ EDUARDO PALOMARES MD STAFF PATHOLOGIST Signed: 07/06/2024 10:40 EDUARDO PALOMARES [facility] Jun 22, 2024 01:15 PM LR MICROBIOLOGY RE PORT: Reporting Lab: [facility] [CLIA# [id number]] [place] [address] Accession [UID]: [id number] [[id number]] Received: Jun 22, 2024@13:38 Collection sample: FLUID Collection date: Jun 22, 2024 13:15 Provider: ANGELA HOLDEN Comment on specimen: LLQ ABSCESS, RECEIVED IN ANAEROBIC TRANSPORT VIAL Test(s) ordered: GRAM STAIN.................... completed: Jun 22, 2024 15:03 CULTURE & SUSCEPTIBILITY...... completed: Jun 25, 2024 * BACTERIOLOGY FINAL REPORT => Jun 25, 2024 10:56 TECH CODE: [id number] GRAM STAIN: DIRECT SMEAR of specimen before [...] Bacteriology Report Performed By: [facility] [CLIA# [id number]] [place] [address] [facility] Jun 22, 2024 01:15 PM LR MICROBIOLOGY RE PORT: Reporting Lab: [facility] [CLIA# [id number]] [place] [address] Accession [UID]: [id number] [[id number]] Received: Jun 22, 2024@13:38 Collection sample: FLUID Collection date: Jun 22, 2024 13:15 Provider: ANGELA HOLDEN Comment on specimen: LLQ ABSCESS, RECEIVED IN ANAEROBIC TRANSPORT VIAL Test(s) ordered: ANAEROBIC CULTURE............. completed: Jun 28, 2024 * BACTERIOLOGY FINAL REPORT => Jun 28, 2024 10:08 TECH CODE: [id number] CULTURE RESULTS: HEAVY GROWTH MIXED ANAEROBES Comment: [...] Bacteriology Report Performed By: [facility] [CLIA# [id number]] [place] [address] [facility] Jun 21, 2024 06:12 PM LR MICROBIOLOGY RE PORT: Reporting Lab: [facility] [CLIA# [id number]] [place] [address] Accession [UID]: [id number] [[id number]] Received: Jun 21, 2024@18:12 Collection sample: BLOOD [...] Laboratory: Bacteriology Report Performed By: [facility] [IA# [id number]] [place] [address] [facility] Jun 21, 2024 06:11 PM LR MICROBIOLOGY RE PORT: Reporting Lab: [facility] [[facility]# [id number]] [place] [address] Accession [UID]: [id number] [[id number]] Received: Jun 21, 2024@18:11 Collection sample: BLOOD [...] Laboratory: Bacteriology Report Performed By: [facility] [[facility]# [id number]] [place] [address] [facility] Jun 08, 2024 11:00 AM LR MICROBIOLOGY RE PORT: Reporting Lab: [facility] [IA# [id number]] [place] [address] Accession [UID]: [id number] [[id number]] Received: Jun 08, 2024@11:00 Collection sample: URINE Collection date: Jun 08, 2024 11:00 Provider: MARYBETH POWELL Comment on specimen: urine Test(s) ordered: CULTURE & SUSCEPTIBILITY...... completed: Jun 09, 2024 * BACTERIOLOGY FINAL REPORT => Jun 09, 2024 19:12 TECH CODE: [id number] CULTURE RESULTS: ESCHERICHIA COLI - Quantity: >100,000 [...] Bacteriology Report Performed By: [facility] [CLIA# [id number]] [place] [address] [facility]
--- OUTSIDE RECORDS SUMMARY | 2024-07-16 07:28 | XMS_ITS | Encounter Summary ---
Author Name [facility] [facility] [place] [facility] [place] [facility] [place] Address [address] [place] [address] Care Team Providers Care Farm General Manager Name Role Phone JATINDER CABRERA Primary [...] PART A Sep 29, 2016 PART A [id number] [phone] UJDY WEAVER PATIENT Selected Encounter This section includes the information on record at [place] for the Encounter. Date/Time Encounter Type Encounter Description Reason Provider Source Jun 08, 2024 01:45 PM OFFICE O/P EST HI 40 MIN ANESTHESIA PRE/POST-OP CONSULT ICD-10-CM Z01.818 Encounter for other preprocedural examination LILIAM POWELL Alex Encounter Template Text not used by [place] Assessments - Encounter Diagnoses This section includes the primary and secondary diagnoses documented for the Encounter. Date/Time Primary/Secondary Diagnosis Diagnosis Name Provider Source Jun 08, 2024 01:19 PM PRIMARY Encounter for other preprocedural examination LILIAM POWELL [facility] Jun 08, 2024 01:19 PM SECONDARY Aneurysm of iliac artery [place] [facility] Jun 08, 2024 01:19 PM SECONDARY Athscl heart disease of [place] coronary artery w/o ang pctrs LILIAM POWELL [facility] Jun 08, 2024 01:19 PM SECONDARY Cannabis dependence, uncomplicated LILIAM POWELL [facility] Jun 08, 2024 01:19 PM SECONDARY Diaphragmatic hernia without obstruction or gangrene LILIAM POWELL [facility] Jun 08, 2024 01:19 PM SECONDARY Dvrtclos of intest, part unsp, w/o perf or abscess w/o bleed LILIAM POWELL [facility] Jun 08, 2024 01:19 PM SECONDARY Essential (primary) hypertension LILIAM POWELL [facility] Plan of Treatment: Future Appointments (+ 6 months) and Future Tests (+/- 45 days) The Plan of Treatment section includes future care activities for the patient from [facility] [place] [facility] This section includes future appointments and future orders which are active, pending or scheduled. Future Appointments This section includes appointments that were scheduled to occur 6 months from the date of the Encounter, up to a maximum of 20 appointments. The data comes from all [facility]. Appointment Date/Time Appointment Type Appointme nt Facility Name Jun 21, 2024 04:48 PM AMBULATORY - MEDICINE [facility] Jun 21, 2024 05:45 PM AMBULATORY - NONE [facility] Jun 27, 2024 07:00 AM AMBULATORY - NONE [facility] Jun 27, 2024 07:30 AM AMBULATORY - MEDICINE [facility] Jun 27, 2024 08:00 AM AMBULATORY - MEDICINE [facility] Jul 03, 2024 05:55 AM AMBULATORY - NONE [facility] Jul 13, 2024 08:15 AM AMBULATORY - NONE [facility] Active, Pending, and Scheduled Orders This [...] ~Culture sample from JUAN drain output [facility] Apr 26, 2024 10:10 AM Laboratory - Microbiology Order GRAM STAIN WOUND OTHER WC ONCE ~For Test: GRAM STAIN ~JUAN drain culture/gram stain [facility] May 28, 2024 12:00 AM Laboratory - Blood Bank Order TYPE & SCREEN - LAB BLOOD SP [facility] Jun 08, 2024 09:57 AM Laboratory - Chemistry Order URINALYSIS URINE WC ONCE [facility] Jun 12, 2024 12:00 AM Laboratory - Chemistry Order BNP PLASMA SP ONCE [facility] Jun 21, 2024 05:45 PM Laboratory - Blood Bank Order TYPE & SCREEN - LAB BLOOD WC [facility] Jul 03, 2024 12:00 AM Laboratory - Blood Bank Order TYPE & SCREEN - LAB BLOOD WC [facility] Jul 16, 2024 12:00 AM Laboratory - Chemistry Order CBC BLOOD SP ONCE [facility] Jul 17, 2024 12:00 AM Laboratory - Chemistry Order BASIC METABOLIC PANEL+MG PLASMA SP ONCE [facility] Lab Results: +/- 30 days of [...] Range Comment Jul 08, 2024 10:[address] [facility] URINALYSIS Specimen Type: URINE No comment entered. Ordering Provider: KATELYNN PERSON Report Released Date/Time: Jul 08, 2024 08:41 AM Reporting Lab: [facility] [address] Performing Lab: [facility] [address] URINE COLOR YELLOW SPECIFIC GRAVITY >1.050 H [...] NEGATIVE Jul 08, 2024 09:[address] [facility] CBC Specimen Type: BLOOD Comment: Specimen received in Lab at: 0952 Ordering Provider: JUANCARLOS ECHOLS S Report Released Date/Time: Jul 07, 2024 04:49 PM Reporting Lab: [facility] [address] Performing Lab: [facility] [address] WBC 17.5 H 4.0-11.0 RBC 4.88 4.60-6.20 HGB 14.9 g/dL 13.5-17.9 HCT 45.7 41.0-54.0 MCV 93.6 fL 80.0-100.0 MCH 30.5 pg 27.0-33.0 MCHC 32.6 g/dL 32.0-37.5 PLT 472 H 150-400 MPV 10.2 fL 9.1-13.0 RDW 13.7 11.5-14.5 Jul 08, 2024 09:[address] [facility] PHOSPHORUS Specimen Type: PLASMA Comment: Specimen received in Lab at: 0952 Ordering Provider: JUANCALROS ECHOLS S Report Released Date/Time: Jul 07, 2024 04:49 PM Reporting Lab: [facility] [address] Performing Lab: [facility] [address] PHOSPHORUS 2.6 mg/dL 2.3-4.3 Jul 08, 2024 09:[address] [facility] BASIC METABOLIC PANEL+MG Specimen Type: PLASMA Comment: Specimen received in Lab at: 0952 Ordering Provider: JUANCARLOS ECHOLS S Report Released Date/Time: Jul 07, 2024 04:49 PM Reporting Lab: [facility] [address] Performing Lab: [facility] [address] CREATININE 0.9 mg/dL 0.7-1.2 UREA NITROGEN 26 mg/dL 8-26 GLUCOSE 128 mg/dL H 70-100 SODIUM 134 mmol/L L 136-145 POTASSIUM 3.4 mmol/L L 3.5-5.1 CHLORIDE 100 mmol/L 98-107 CO2 24 mmol/L 22-29 CALCIUM 9.8 mg/dL 8.4-10.2 MAGNESIUM 1.8 mg/dL 1.6-2.6 ANION GAP 10 mmol/L 5-15 .CREAT EGFR(CKD-EPI) >90 >60 Jul 07, 2024 02:[address] [facility] C DIFF PANEL Specimen Type: FECES No comment entered. Ordering Provider: JEVON ZAZUETA Report Released Date/Time: Jul 07, 2024 12:26 PM Reporting Lab: [facility] [address] Performing Lab: [facility] [address] C DIFF TOX B GENE PCR NEGATIVE Negative Jul 07, 2024 07:[address] [facility] PHOSPHORUS Specimen Type: PLASMA No comment entered. Ordering Provider: JEVON ZAZUETA Report Released Date/Time: Jul 06, 2024 03:44 PM Reporting Lab: [facility] [address] Performing Lab: [facility] [address] PHOSPHORUS 3.1 mg/dL 2.3-4.3 Jul 07, 2024 07:[address] [facility] BASIC METABOLIC PANEL+MG Specimen Type: PLASMA No comment entered. Ordering Provider: JEVON ZAZUETA Report Released Date/Time: Jul 06, 2024 03:44 PM Reporting Lab: [facility] [address] Performing Lab: [facility] [address] CREATININE 0.9 mg/dL 0.7-1.2 UREA NITROGEN 20 mg/dL 8-26 GLUCOSE 157 mg/dL H 70-100 SODIUM 136 mmol/L 136-145 POTASSIUM 3.7 mmol/L 3.5-5.1 CHLORIDE 102 mmol/L 98-107 CO2 21 mmol/L L 22-29 CALCIUM 9.8 mg/dL 8.4-10.2 MAGNESIUM 1.9 mg/dL 1.6-2.6 ANION GAP 13 mmol/L 5-15 .CREAT EGFR(CKD-EPI) >90 >60 Jul 07, 2024 07:[address] [facility] CBC Specimen Type: BLOOD No comment entered. Ordering Provider: JEVON ZAZUETA Report Released Date/Time: Jul 06, 2024 03:44 PM Reporting Lab: [facility] [address] Performing Lab: [facility] [address] WBC 21.2 H 4.0-11.0 RBC 5.09 4.60-6.20 HGB 15.9 g/dL 13.5-17.9 HCT 48.3 41.0-54.0 MCV 94.9 fL 80.0-100.0 MCH 31.2 pg 27.0-33.0 MCHC 32.9 g/dL 32.0-37.5 PLT 500 H 150-400 MPV 10.3 fL 9.1-13.0 RDW 13.6 11.5-14.5 Jul 06, 2024 07:[address] [facility] CBC Specimen Type: BLOOD No comment entered. Ordering Provider: JEVON ZAZUETA Report Released Date/Time: Jul 05, 2024 01:22 PM Reporting Lab: [facility] [address] Performing Lab: [facility] [address] WBC 18.0 H 4.0-11.0 RBC 4.83 4.60-6.20 HGB 14.6 g/dL 13.5-17.9 HCT 45.5 41.0-54.0 MCV 94.2 fL 80.0-100.0 MCH 30.2 pg 27.0-33.0 MCHC 32.1 g/dL 32.0-37.5 PLT 368 150-400 MPV 10.4 fL 9.1-13.0 RDW 13.6 11.5-14.5 Jul 06, 2024 07:[address] [facility] PHOSPHORUS Specimen Type: PLASMA No comment entered. Ordering Provider: JEVON ZAZUETA Report Released Date/Time: Jul 05, 2024 01:22 PM Reporting Lab: [facility] [address] Performing Lab: [facility] [address] PHOSPHORUS 3.6 mg/dL 2.3-4.3 Jul 06, 2024 07:[address] [facility] BASIC METABOLIC PANEL+MG Specimen Type: PLASMA No comment entered. Ordering Provider: JEVON ZAZUETA Report Released Date/Time: Jul 05, 2024 01:22 PM Reporting Lab: [facility] [address] Performing Lab: [facility] [address] CREATININE 0.7 mg/dL 0.7-1.2 UREA NITROGEN 12 mg/dL 8-26 GLUCOSE 108 mg/dL H 70-100 SODIUM 138 mmol/L 136-145 POTASSIUM 3.4 mmol/L L 3.5-5.1 CHLORIDE 104 mmol/L 98-107 CO2 20 mmol/L L 22-29 CALCIUM 9.3 mg/dL 8.4-10.2 MAGNESIUM 1.9 mg/dL 1.6-2.6 ANION GAP 14 mmol/L 5-15 .CREAT EGFR(CKD-EPI) >90 >60 Jul 05, 2024 07:[address] [facility] MAGNESIUM Specimen Type: PLASMA No comment entered. Ordering Provider: JUANCARLOS ECHOLS S Report Released Date/Time: Jul 04, 2024 09:39 AM Reporting Lab: [facility] [address] Performing Lab: [facility] [address] MAGNESIUM 2.0 mg/dL 1.6-2.6 Jul 05, 2024 07:[address] [facility] PHOSPHORUS Specimen Type: PLASMA No comment entered. Ordering Provider: JUANCARLOS ECHOLS S Report Released Date/Time: Jul 04, 2024 09:39 AM Reporting Lab: [facility] [address] Performing Lab: [facility] [address] PHOSPHORUS 2.0 mg/dL L 2.3-4.3 Jul 05, 2024 07:[address] [facility] BASIC METABOLIC PANEL+MG Specimen Type: PLASMA No comment entered. Ordering Provider: JUANCARLOS ECHOLS S Report Released Date/Time: Jul 04, 2024 09:39 AM Reporting Lab: [facility] [address] Performing Lab: [facility] [address] CREATININE 0.7 mg/dL 0.7-1.2 UREA NITROGEN 12 mg/dL 8-26 GLUCOSE 84 mg/dL 70-100 SODIUM 135 mmol/L L 136-145 POTASSIUM 3.8 mmol/L 3.5-5.1 CHLORIDE 104 mmol/L 98-107 CO2 24 mmol/L 22-29 CALCIUM 9.3 mg/dL 8.4-10.2 MAGNESIUM 2.0 mg/dL 1.6-2.6 ANION GAP 7 mmol/L 5-15 .CREAT EGFR(CKD-EPI) >90 >60 Jul 05, 2024 07:[address] [facility] CBC Specimen Type: BLOOD No comment entered. Ordering Provider: JUANCARLOS ECHOLS S Report Released Date/Time: Jul 04, 2024 09:39 AM Reporting Lab: [facility] [address] Performing Lab: [facility] [address] WBC 18.3 H 4.0-11.0 RBC 4.49 L 4.60-6.20 HGB 14.1 g/dL 13.5-17.9 HCT 43.4 41.0-54.0 MCV 96.7 fL 80.0-100.0 MCH 31.4 pg 27.0-33.0 MCHC 32.5 g/dL 32.0-37.5 PLT 317 150-400 MPV 10.0 fL 9.1-13.0 RDW 13.9 11.5-14.5 Jul 04, 2024 07:[address] [facility] BASIC METABOLIC PANEL+MG Specimen Type: PLASMA No comment entered. Ordering Provider: GABINO CAMERON Report Released Date/Time: Jul 03, 2024 06:31 PM Reporting Lab: [facility] [address] Performing Lab: [facility] [address] CREATININE 0.7 mg/dL 0.7-1.2 UREA NITROGEN 16 mg/dL 8-26 GLUCOSE 129 mg/dL H 70-100 SODIUM 137 mmol/L 136-145 POTASSIUM 3.7 mmol/L 3.5-5.1 CHLORIDE 107 mmol/L 98-107 CO2 22 mmol/L 22-29 CALCIUM 9.0 mg/dL 8.4-10.2 MAGNESIUM 1.9 mg/dL 1.6-2.6 ANION GAP 8 mmol/L 5-15 .CREAT EGFR(CKD-EPI) >90 >60 Jul 04, 2024 07:[address] [facility] PHOSPHORUS Specimen Type: PLASMA No comment entered. Ordering Provider: GABINO CAMERON Report Released Date/Time: Jul 03, 2024 06:31 PM Reporting Lab: [facility] [address] Performing Lab: [facility] [address] PHOSPHORUS 2.8 mg/dL 2.3-4.3 Jul 04, 2024 07:[address] [facility] CBC Specimen Type: BLOOD No comment entered. Ordering Provider: GABINO CAMERON Report Released Date/Time: Jul 03, 2024 06:31 PM Reporting Lab: [facility] [address] Performing Lab: [facility] [address] WBC 20.6 H 4.0-11.0 RBC 4.63 4.60-6.20 HGB 14.2 g/dL 13.5-17.9 HCT 43.4 41.0-54.0 MCV 93.7 fL 80.0-100.0 MCH 30.7 pg 27.0-33.0 MCHC 32.7 g/dL 32.0-37.5 PLT 329 150-400 MPV 10.4 fL 9.1-13.0 RDW 13.8 11.5-14.5 Jul 04, 2024 07:[address] [facility] CBC & DIFF Specimen Type: BLOOD Comment: Manual Differential Performed Ordering Provider: GABINO CAMERON Report Released Date/Time: Jul 03, 2024 06:31 PM Reporting Lab: [facility] [address] Performing Lab: [facility] [address] WBC 20.6 H 4.0-11.0 RBC 4.63 4.60-6.20 [...] PRESENT Jul 04, 2024 07:[address] [facility] BNP Specimen Type: PLASMA No comment entered. Ordering Provider: GABINO CAMERON Report Released Date/Time: Jul 03, 2024 06:31 PM Reporting Lab: [facility] [address] Performing Lab: [facility] [address] BNP 292 pg/mL H <99 Jul 03, 2024 10:[address] [facility] FINGERSTICK GLUCOSE Specimen Type: BLOOD Comment: Save Result Nurse Notified Ordering Provider: KATELYNN PERSON Report Released Date/Time: Jul 03, 2024 10:50 PM Reporting Lab: [facility] [address] Performing Lab: [facility] [address] FINGERSTICK GLUCOSE 126 mg/dL H 70-100 Jul 03, 2024 05:[address] [facility] FINGERSTICK GLUCOSE Specimen Type: BLOOD Comment: Save Result Nurse Notified Ordering Provider: KATELYNN PERSON Report Released Date/Time: Jul 03, 2024 05:46 PM Reporting Lab: [facility] [address] Performing Lab: [facility] [address] FINGERSTICK GLUCOSE 141 mg/dL H 70-100 Jul 03, 2024 02:[address] [facility] POC ABG/ELECTROLYTES Specimen Type: ARTERIAL BLOOD Comment: FIO2 = 97% Patient Temp: 36.0 C Sample Type = ARTERIAL Ordering Provider: MAZIN ARREDONDO Report Released Date/Time: Jul 03, 2024 01:48 PM Reporting Lab: [facility] [address] Performing Lab: [facility] [address] POC PH 7.387 7.35-7.45 POC PCO2 34.4 [...] 80.0-105.0 Jul 03, 2024 01:[address] [facility] POC ABG/ELECTROLYTES Specimen Type: ARTERIAL BLOOD Comment: FIO2 = 53% Patient Temp: 36.2 C Sample Type = ARTERIAL Ordering Provider: MAZIN ARREDONDO Report Released Date/Time: Jul 03, 2024 01:48 PM Reporting Lab: [facility] [address] Performing Lab: [facility] [address] POC PH 7.280 L 7.35-7.45 POC PCO2 [...] 80.0-105.0 Jul 03, 2024 06:[address] [facility] URINALYSIS Specimen Type: URINE No comment entered. Ordering Provider: PALMIRA POWELL Report Released Date/Time: Jun 12, 2024 04:01 PM Reporting Lab: [facility] [address] Performing Lab: [facility] [address] URINE COLOR YELLOW SPECIFIC GRAVITY 1.031 1.003-1.03 [...] NEGATIVE Jul 03, 2024 06:[address] [facility] CBC Specimen Type: BLOOD No comment entered. Ordering Provider: PALMIRA POWELL Report Released Date/Time: Jun 12, 2024 03:59 PM Reporting Lab: [facility] [address] Performing Lab: [facility] [address] WBC 15.8 H 4.0-11.0 RBC 5.11 4.60-6.20 HGB 16.1 g/dL 13.5-17.9 HCT 49.1 41.0-54.0 MCV 96.1 fL 80.0-100.0 MCH 31.5 pg 27.0-33.0 MCHC 32.8 g/dL 32.0-37.5 PLT 357 150-400 MPV 9.8 fL 9.1-13.0 RDW 13.7 11.5-14.5 Jun 24, 2024 09:[address] [facility] BASIC METABOLIC PANEL+MG Specimen Type: PLASMA Comment: Specimen received in Lab at: 0948 Ordering Provider: JEVON ZAZUETA Report Released Date/Time: Jun 23, 2024 06:07 PM Reporting Lab: [facility] [address] Performing Lab: [facility] [address] CREATININE 0.8 mg/dL 0.7-1.2 UREA NITROGEN 13 mg/dL 8-26 GLUCOSE 135 mg/dL H 70-100 SODIUM 135 mmol/L L 136-145 POTASSIUM 3.6 mmol/L 3.5-5.1 CHLORIDE 103 mmol/L 98-107 CO2 24 mmol/L 22-29 CALCIUM 9.2 mg/dL 8.4-10.2 MAGNESIUM 1.9 mg/dL 1.6-2.6 ANION GAP 8 mmol/L 5-15 .CREAT EGFR(CKD-EPI) >90 >60 Jun 24, 2024 09:[address] [facility] CBC Specimen Type: BLOOD Comment: Specimen received in Lab at: 0948 Ordering Provider: JEVON ZAZUETA Report Released Date/Time: Jun 23, 2024 06:07 PM Reporting Lab: [facility] [address] Performing Lab: [facility] [address] WBC 15.5 H 4.0-11.0 RBC 4.93 4.60-6.20 HGB 15.2 g/dL 13.5-17.9 HCT 46.5 41.0-54.0 MCV 94.3 fL 80.0-100.0 MCH 30.8 pg 27.0-33.0 MCHC 32.7 g/dL 32.0-37.5 PLT 223 150-400 MPV 11.4 fL 9.1-13.0 RDW 13.9 11.5-14.5 Jun 23, 2024 07:[address] [facility] COMPREHENSIVE METABOLIC PANEL+MG Specimen Type: PLASMA No comment entered. Ordering Provider: JEVON ZAZUETA Report Released Date/Time: Jun 22, 2024 05:51 PM Reporting Lab: [facility] [address] Performing Lab: [facility] [address] CREATININE 0.7 mg/dL 0.7-1.2 UREA NITROGEN 16 [...] >60 Jun 23, 2024 07:[address] [facility] CBC & DIFF Specimen Type: BLOOD Comment: Automated Differential Performed Ordering Provider: JEVON ZAZUETA Report Released Date/Time: Jun 22, 2024 05:51 PM Reporting Lab: [facility] [address] Performing Lab: [facility] [address] WBC 14.9 H 4.0-11.0 RBC 5.09 4.60-6.20 [...] 0.0-0.1 Jun 22, 2024 06:[address] [facility] CBC Specimen Type: BLOOD No comment entered. Ordering Provider: JEVON ZAZUETA Report Released Date/Time: Jun 22, 2024 05:51 PM Reporting Lab: [facility] [address] Performing Lab: [facility] [address] WBC 16.9 H 4.0-11.0 RBC 5.28 4.60-6.20 HGB 16.9 g/dL 13.5-17.9 HCT 50.4 41.0-54.0 MCV 95.5 fL 80.0-100.0 MCH 32.0 pg 27.0-33.0 MCHC 33.5 g/dL 32.0-37.5 PLT 223 150-400 MPV 10.9 fL 9.1-13.0 RDW 14.0 11.5-14.5 Jun 22, 2024 06:[address] [facility] COMPREHENSIVE METABOLIC PANEL+MG Specimen Type: PLASMA No comment entered. Ordering Provider: JEVON ZAZUETA Report Released Date/Time: Jun 22, 2024 05:51 PM Reporting Lab: [facility] [address] Performing Lab: [facility] [address] CREATININE 0.7 mg/dL 0.7-1.2 UREA NITROGEN 17 [...] >60 Jun 21, 2024 06:[address] [facility] URINALYSIS Specimen Type: URINE No comment entered. Ordering Provider: DELIA MARTINEZ Report Released Date/Time: Jun 21, 2024 05:45 PM Reporting Lab: [facility] [address] Performing Lab: [facility] [address] URINE COLOR YELLOW SPECIFIC GRAVITY 1.041 H [...] NEGATIVE Jun 21, 2024 05:[address] [facility] POC CREATININE Specimen Type: BLOOD No comment entered. Ordering Provider: DELIA MARTINEZ Report Released Date/Time: Jun 21, 2024 06:07 PM Reporting Lab: [facility] [address] Performing Lab: [facility] [address] POC CREATININE 1.1 mg/dL 0.6-1.3 Jun 21, 2024 05:[address] [facility] POC ABG/LACTATE Specimen Type: VENOUS BLOOD No comment entered. Ordering Provider: DELIA MARTINEZ Report Released Date/Time: Jun 21, 2024 06:07 PM Reporting Lab: [facility] [address] Performing Lab: [facility] [address] POC PH 7.470 H 7.31-7.41 POC PCO2 31.2 mm[Hg] L 41.00-51 .0 0 POC PO2 46 mm[Hg] H 35.0-40.0 POC TCO2 24 mmol/L 24.0-29.0 POC HCO3 22.7 mmol/L L 23.0-28.0 POC BE ECT -1 mmol/L POC SO2 85 H 70-75 POC LACTATE 1.85 mmol/L 0.90-1.70 Jun 21, 2024 05:[address] [facility] PROTHROMBIN TIME/INR Specimen Type: PLASMA No comment entered. Ordering Provider: DELIA MARTINEZ Report Released Date/Time: Jun 21, 2024 05:30 PM Reporting Lab: [facility] [address] Performing Lab: [facility] [address] .INR 1.2 H 0.8-1.1 .PT 13.9 s H 9.4-12.5 Jun 21, 2024 05:[address] [facility] LIPASE Specimen Type: PLASMA No comment entered. Ordering Provider: DELIA MARTINEZ Report Released Date/Time: Jun 21, 2024 05:30 PM Reporting Lab: [facility] [address] Performing Lab: [facility] [address] LIPASE 32 U/L <60 Jun 21, 2024 05:[address] [facility] EXTRA GOLD GEL TUBE Specimen Type: SERUM No comment entered. Ordering Provider: DELIA MARTINEZ Report Released Date/Time: Jun 21, 2024 05:41 PM Reporting Lab: [facility] [address] Performing Lab: [facility] [address] EXTRA GOLD GEL TUBE RECEIVED Jun 21, 2024 05:[address] [facility] COMPREHENSIVE METABOLIC PANEL+MG Specimen Type: PLASMA No comment entered. Ordering Provider: DELIA MARTINEZ Report Released Date/Time: Jun 21, 2024 05:30 PM Reporting Lab: [facility] [address] Performing Lab: [facility] [address] CREATININE 0.9 mg/dL 0.7-1.2 UREA NITROGEN 29 [...] <0.5 Jun 21, 2024 05:[address] [facility] CBC & DIFF Specimen Type: BLOOD Comment: Manual Differential Performed Ordering Provider: DELIA MARTINEZ Report Released Date/Time: Jun 21, 2024 05:30 PM Reporting Lab: [facility] [address] Performing Lab: [facility] [address] WBC 21.3 H 4.0-11.0 RBC 5.48 4.60-6.20 [...] PRESENT Jun 08, 2024 10:[address] [facility] PROTHROMBIN TIME/INR Specimen Type: PLASMA No comment entered. Ordering Provider: PALMIRA POWELL Report Released Date/Time: May 28, 2024 09:02 AM Reporting Lab: [facility] [address] Performing Lab: [facility] [address] .INR 1.0 0.8-1.1 .PT 11.8 s 9.4-12.5 Jun 08, 2024 10:[address] [facility] CBC Specimen Type: BLOOD No comment entered. Ordering Provider: PALMIRA POWELL Report Released Date/Time: May 28, 2024 09:02 AM Reporting Lab: [facility] [address] Performing Lab: [facility] [address] WBC 16.1 H 4.0-11.0 RBC 5.02 4.60-6.20 HGB 16.0 g/dL 13.5-17.9 HCT 47.1 41.0-54.0 MCV 93.8 fL 80.0-100.0 MCH 31.9 pg 27.0-33.0 MCHC 34.0 g/dL 32.0-37.5 PLT 228 150-400 MPV 10.3 fL 9.1-13.0 RDW 14.6 H 11.5-14.5 Jun 08, 2024 10:[address] [facility] HEMOGLOBIN A1C Specimen Type: BLOOD Comment: [...] 09:02 AM Reporting Lab: [facility] [address] Performing Lab: [facility] [address] HEMOGLOBIN A1C 4.9 4.0-6.0 Jun 08, 2024 10:[address] [facility] BASIC METABOLIC PANEL+MG Specimen Type: PLASMA No comment entered. Ordering Provider: PALMIRA POWELL Report Released Date/Time: May 28, 2024 09:02 AM Reporting Lab: [facility] [address] Performing Lab: [facility] [address] CREATININE 0.9 mg/dL 0.7-1.2 UREA NITROGEN 15 mg/dL 8-26 GLUCOSE 93 mg/dL 70-100 SODIUM 139 mmol/L 136-145 POTASSIUM 3.7 mmol/L 3.5-5.1 CHLORIDE 106 mmol/L 98-107 CO2 25 mmol/L 22-29 CALCIUM 9.8 mg/dL 8.4-10.2 MAGNESIUM 2.1 mg/dL 1.6-2.6 ANION GAP 8 mmol/L 5-15 .CREAT EGFR(CKD-EPI) >90 >60 May 21, 2024 06:[address] [facility] BASIC METABOLIC PANEL+MG Specimen Type: PLASMA No comment entered. Ordering Provider: GOLDIE CABRERA Report Released Date/Time: May 15, 2024 08:34 AM Reporting Lab: [facility] [address] Performing Lab: [facility] [address] CREATININE 0.9 mg/dL 0.7-1.2 UREA NITROGEN 18 [...] Source Jun 08, 2024 11:43 AM 147/73 [facility] Jun 08, 2024 11:43 AM 97.5 58 143/64 18 97 0 70 206.4 30 [facility] Social History: Smoking [...] 2024 08:30 AM VA-TOBACCO FORMER USER [facility] Tobacco Use History This section includes a history of the smoking, or tobacco-related health factors, that were collected on or before the date of the Encounter. The data comes from the [place] facility where the Encounter took place. Date/Time Smoking Status/Tobacco Use Comment F acility May 15, 2024 08:30 AM VA-TOBACCO QUIT [address] [facility] May 06, 2023 11:30 AM VA-TOBACCO FORMER USER [facility] May 06, 2023 11:30 AM VA-TOBACCO QUIT [address] [facility] Jun 04, 2022 09:00 AM VA-TOBACCO FORMER USER [facility] Jun 04, 2022 09:00 AM VA-TOBACCO QUIT [address] [facility] Jul 10, 2021 08:00 AM VA-TOBACCO FORMER USER [facility] Jul 10, 2021 08:00 AM VA-TOBACCO QUIT 5 TO < [address] [facility] May 23, 2020 08:30 AM VA-TOBACCO FORMER USER [facility] May 23, 2020 08:30 AM VA-TOBACCO QUIT 5 TO < [address] [facility] Mar 20, 2019 04:03 PM VA-TOBACCO FORMER USER [facility] Mar 20, 2019 04:03 PM VA-TOBACCO QUIT 5 TO < [address] [facility] Mar 21, 2018 08:13 AM FORMER TOBACCO USER 7Y OR GREATE R [facility] Feb 24, 2017 09:24 AM FORMER TOBACCO USER 7Y OR GREATE R [facility] January 07, 2016 08:01 AM FORMER TOBACCO USE >1Y <7Y [facility] Feb 03, 2015 07:58 AM FORMER TOBACCO USE <1Y [facility] Feb 26, 2014 08:41 AM CURRENT TOBACCO USER [facility] May 13, 2011 01:45 PM CURRENT TOBACCO USER [facility] Advance Directives: All historical and current [...] 2 VIEWS PA AND LAT: FLACA WEAVER [id number] -1950 M Exm Date: JUL 08, 2024@10:09 Req Phys: KATELYNN PERSON Loc: 2KG/07-08-2024@11:49 Img Loc: MAIN X-RAY Service: [place] [address] (Case [id number] COMPLETE) CHEST 2 VIEWS PA AND LAT (RAD Detailed) CPT:05445 Reason for Study: Uptrending WBC, POD 5 [...] 08, 2024 Date Verified: JUL 08, 2024 Oxygen Equipment Preparer E-Sig: Report: CHEST 2 VIEWS PA AND LAT HISTORY: Uptrending WBC, POD 5 COMPARISON: CT chest 11/12/2022 TECHNIQUE: Frontal and lateral views of the chest, submitted to the [place] National Teleradiology Program (NTP) for interpretation. FINDINGS: Lungs: Clear. No focal consolidation. No pulmonary edema. Pleura: No pleural effusion or pneumothorax. Mediastinum: Normal size and contour. Bones: Unremarkable. Impression: No acute cardiopulmonary disease. READING PHYSICIAN: Sarbjit Vaughn M.D. -[phone] 07/08/2024 12:46 EST [facility] National Teleradiology Program [phone] (For Medical Practitioner Use Only) Attention Patients / Veterans: If you have questions or concerns about these test results, please contact your ordering provider or primary care team. Primary Interpreting Staff: RADIOLOGY,OUTSIDE SERVICE, Staff Physician / RADIOLOGY,OUTSIDE SERVICE [facility] Jul 08, 2024 10:[address] (AP) ABDOMEN/PELVIS W CONTRAST: MEGFLACADARCI LOBO [id number] -1950 M Ex Date: JUL 08, 2024@10:00 Req Phys: KATELYNN PERSON [facility] Loc: 2KG/07-08-2024@12:07 Img Loc: CT IMAGING Service: [place] [address] (Case 22 COMPLETE) CT (AP) ABDOMEN/PELVIS W CONTRAST(CT Detailed) CPT:96759 Contrast Media : Non-ionic Iodinated Reason for [...] PLASMA .CREAT EGFR(CKD-E >90 Ref: >=60 Allergies: (Wren only) TERAZOSIN (Mar 13, 2015) Report Status: Verified Date Reported: JUL 08, 2024 Date Verified: JUL 08, 2024 Oxygen Equipment Preparer E-Sig: Report: CT (AP) ABDOMEN/PELVIS W CONTRAST HISTORY: POD 5, Uptrending WBC - Concern for Abscess/other infection COMPARISON: June 21, 2024 TECHNIQUE: CT abdomen and pelvis was performed after intravenous contrast. Axial, sagittal and coronal reformatted images. The study was performed at the local [place] facility and images were sent to the [place] National Teleradiology Program (NTP) for interpretation. Number [...] as noted above READING PHYSICIAN: Celestino Blanc -[phone] 07/08/2024 13:[address] [facility] Lozoradiology Program [phone] (For Medical Practitioner Use Only) Attention Patients / Veterans: If you have questions or concerns about these test results, please contact your ordering provider or primary care team. Primary Interpreting Staff: RADIOLOGY,OUTSIDE SERVICE, Staff Physician / RADIOLOGY,OUTSIDE SERVICE [facility] Jun 22, 2024 11:49 AM ABSCESS DRAIN PLACEMENT PERITONEAL (P): FLACA WEAVER [id number] -1950 M Exm Date: JUN 22, 2024@11:49 Req Phys: ANGELA HOLDEN Pat Loc: [facility]/06-22-2024@17:14 Img Loc: INTERVENTIONAL RADIOLOGY Service: [place] [address] (Case [id number] COMPLETE) IR PERITONEAL/RETROPERITONEAL PER(ANI Detailed) CPT:92975 Reason for Study: diverticulitis with abscess (Case [id number] COMPLETE) IR MOD SEDATION 10-22 MIN (ANI Detailed) CPT:89099 Clinical History: IS NOT under investigation for COVID-19 or is COVID-19 negative 73 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 please place abscess drain. Contact number for responsible provider who can be reached for any questions or notifications of critical findings: [phone] n/a LAST CREATININE 0.9 (06/21/24) Report Status: Verified Date Reported: JUN 22, 2024 Date Verified: JUN 22, 2024 Oxygen Equipment Preparer E-Sig:/ES/LISA PENDLETON MD Report: PROCEDURES: Placement of [...] anesthesia. Using real-time CT fluoroscopy, a 5 Croatian Oppexesis catheter was advanced into the collection in the left pelvis. A wire was coiled in the collection. The tract into the collection was dilated to accommodate the 12 Croatian locking pigtail drainage catheter. There was return [...] Primary Interpreting Staff: LISA PENDLETON MD, RADIOLOGIST (Oxygen Equipment Preparer) /LISA CARDONA [facility] Jun 22, 2024 11:[address] NEEDLE PLACEMENT (P): FLACA WEAVER [id number] -1950 M Exm Date: JUN 22, 2024@11:48 Req Phys: ANGELA HOLDEN Loc: 2K06-22-2024@17:14 Img Loc: CT IMAGING Service: [place] [address] (Case [id number] COMPLETE) CT SCAN FOR NEEDLE PLACEMENT (CT Detailed) CPT:92589 Reason for Study: l pelvic abscess drain Clinical History: Report Status: Verified Date Reported: JUN 22, 2024 Date Verified: JUN 22, 2024 Oxygen Equipment Preparer E-Sig:/ES/LISA PENDLETON MD Report: PROCEDURES: Placement of [...] anesthesia. Using real-time CT fluoroscopy, a 5 Croatian Oppexesis catheter was advanced into the collection in the left pelvis. A wire was coiled in the collection. The tract into the collection was dilated to accommodate the 12 Croatian locking pigtail drainage catheter. There was return of 20 cc of grossly purulent. . A sample was sent to the Lab for culture. The catheter was secured to the skin with monofilament suture and connected to JUNA bulb suction. Limited postprocedural scan demonstrated no immediate complication. Impression: CT-guided left pelvic abscess drain placement. This drain should remain in place until surgical sigmoid resection on 07/03/2024. Primary Interpreting Staff: LISA PENDLETON MD, RADIOLOGIST (Oxygen Equipment Preparer) /JRT LISA PENDLETON [facility] Jun 21, 2024 06:[address] (AP) ABDOMEN/PELVIS (P): FLACA WEAVER [id number] -1950 M Ex Date: JUN 21, 2024@18:09 Req Phys: DELIA MARTINEZ Loc: [facility] EMERGENCY DEPT WALK-IN (Re Img Loc: CT IMAGING Service: [place] [address] (Case [id number] COMPLETE) CT (AP) ABDOMEN/PELVIS W CONTRAST(CT Detailed) CPT:45236 Contrast Media : Non-ionic Iodinated Reason for [...] PLASMA .CREAT EGFR(CKD-E >90 Ref: >=60 Allergies: (Wren only) TERAZOSIN (Mar 13, 2015) Defer to [...] 21, 2024 Date Verified: JUN 21, 2024 Oxygen Equipment Preparer E-Sig:/ALEXI/CARLOS A CUNNINGHAM DO Report: EXAMINATION: CT [...] Interpreting Staff: CARLOS A CUNNINGHAM DO, RADIOLOGIST (Oxygen Equipment Preparer) /CARLOS A ROWELL [facility] May 25, 2024 09:00 AM IR FISTULOGRAM OR SINOGRAM : FLACA WEAVER [id number] -1950 Ex Date: MAY 25, 2024@09:00 Req Phys: AMINTA PRUITT Pat Loc: [facility] INTERVENTIONAL RADIO Img Loc: INTERVENTIONAL RADIOLOGY Service: [place] [address] (Case [id number] COMPLETE) IR FISTULOGRAM OR SINOGRAM (ANI Detailed) CPT:25962 Contrast Media : unspecified contrast media Reason for Study: s/p drain placement for diverticular abscess- assess for drain Clinical History: IS NOT under investigation for COVID-19 or is COVID-19 negative 2 week follow up per Dr Pruitt Contact number for responsible provider who can be reached for any questions or notifications of critical findings: [phone] Sonal LAST 3: Collection DT Specimen Test [...] 25, 2024 Date Verified: MAY 25, 2024 Oxygen Equipment Preparer E-Sig:/ES/DAVID BURNS MD Report: PROCEDURES 05/25/2024 9:48 [...] Primary Interpreting Staff: DAVID BURNS MD, RADIOLOGIST (Oxygen Equipment Preparer) /DAVID PAK [facility] May 25, 2024 08:[address] (AP) ABDOMEN/PELVIS (P): FLACA WEAVER [id number] -1950 M Exm Date: MAY 25, 2024@08:23 Req Phys: DAVID BURNS Loc: [facility] INTERVENTIONAL RADIO Img Loc: CT IMAGING Service: [place] [address] (Case [id number] COMPLETE) CT (AP) ABDOMEN/PELVIS W/O CONTRA(CT Detailed) CPT:80287 Reason for Study: assess abscess and possible drain removal Clinical History: no contrast per venancio Per Joint Commission Standards, by signing this diagnostic imaging request the ordering provider confirms they have considered patients age and recent imaging history. Defer to radiologist for final CT protocol. Contact number for responsible provider who can be reached for any questions or notifications of critical findings: [phone] kanikaalex LAST 3: Collection DT Specimen Test [...] PLASMA .CREAT EGFR(CKD-E >90 Ref: >=60 Allergies: (Wren only) TERAZOSIN (Mar 13, 2015) Report Status: Verified Date Reported: MAY 25, 2024 Date Verified: MAY 25, 2024 Oxygen Equipment Preparer E-Sig:/ES/JESSENIA GOODMAN MD Report: EXAM: CT abdomen and pelvis without intravenous contrast. 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 TECHNIQUE: Helical acquisition of image data was performed for the abdomen and pelvis without intravenous contrast. Dose: 512.57 mGy*cm COMPARISON: CT abdomen pelvis with contrast 05/11/[address] abdomen pelvis 04/23/2024.; CT abdomen pelvis 05/05/2020 FINDINGS: BARREL STAVE INSPECTOR: Pigtail catheter projecting over the left hemipelvis [...] Primary Interpreting Staff: JESSENIA GOODMAN MD, RADIOLOGIST (Oxygen Equipment Preparer) Primary Interpreting Resident: YOHANNES MELO DO, INDUSTRIAL ENG /JESSENIA LOUIE [facility] May 11, 2024 12:39 PM IR FISTULOGRAM / SINOGRAM (P): FLACA WEAVER [id number] -1950 M Exm Date: MAY 11, 2024@12:39 Req Phys: PALMIRA POWELL Loc: [facility] C/R FOLLOW-UP CLINIC (Req' Img Loc: INTERVENTIONAL RADIOLOGY Service: [place] [address] (Case [id number] COMPLETE) IR INJECTION FOR SINOGRAM DIAGNOS(ANI Detailed) CPT:25787 Contrast Media : Non-ionic Iodinated Reason for Study: s/p drain placement for diverticular abscess- assess for drain (Case [id number] COMPLETE) IR FISTULOGRAM OR SINOGRAM (ANI Detailed) CPT:69420 Contrast Media : unspecified contrast media (Case [id number] COMPLETE) IR DRAINAGE CATHETER SUPPLY (ANI Detailed) CPT:C1729 Clinical History: [place] IS NOT under investigation for COVID-19 or is COVID-19 negative s/p drain placement for diverticular abscess- assess for drain removal Contact number for responsible provider who can be reached for any questions or notifications of critical findings: [phone] Palmira Powell MD LAST CREATININE 0.7 (05/04/24) Report Status: Verified Date Reported: MAY 11, 2024 Date Verified: MAY 11, 2024 Oxygen Equipment Preparer E-Sig:/ES/AMINTA PRUITT MD Report: PROCEDURES Abdominal drain [...] Interpreting Staff: AMINTA PRUITT MD, INTERVENTIONAL RADIOLOGIST (Oxygen Equipment Preparer) /AMINTA VELAZCO [facility] May 11, 2024 11:[address] (AP) ABDOMEN/PELVIS (P): FLACA WEAVER [id number] -1950 M Exm Date: MAY 11, 2024@11:40 Req Phys: PALMIRA POWELL Loc: [facility] C/R FOLLOW-UP CLINIC (Req' Img Loc: CT IMAGING Service: [place] [address] (Case [id number] COMPLETE) CT (AP) ABDOMEN/PELVIS W CONTRAST(CT Detailed) CPT:39283 Contrast Media : Non-ionic Iodinated Reason for [...] any questions or notifications of critical findings: [phone] Palmira Powell MD LAST 3: Collection DT [...] PLASMA .CREAT EGFR(CKD-E >90 Ref: >=60 Allergies: (Wren only) TERAZOSIN (Mar 13, 2015) Report Status: Verified Date Reported: MAY 11, 2024 Date Verified: MAY 11, 2024 Oxygen Equipment Preparer E-Sig:/ES/LISA PENDLETON MD Report: CT abdomen and [...] Primary Interpreting Staff: LISA PENDLETON MD, RADIOLOGIST (Oxygen Equipment Preparer) /LISA CARDONA [facility] Pathology Reports: +/- 30 days of [...] URGENCY: STATUS: COMPLETED $APHDR Reporting Lab: [facility] [CLIA# [id number]] [place] [address] - - - - - - - [...] - PATHOLOGY REPORT Accession No. [id number] - - - - - - - [...] - PATHOLOGY REPORT Accession No. [id number] - - - - - - - [...] Second circumferential surgical margin, en face; E-F: Medical Lab Tech Instructor diverticula; G: Medical Lab Tech Instructor section of mesentery; H: Random office machines sales representative section of additional adipose tissue [...] One colonic tissue ring, bisected transversely. [facility]. [facility]: Microscopic examination performed. DIAGNOSIS: 1. Colon, sigmoid, sigmoidectomy-- - Diverticulosis with perforation and focal abscess formation 2. Colon, anastomotic rings, excision-- - Viable colonic mucosa without diagnostic abnormality /es/ EDUARDO PALOMARES MD STAFF PATHOLOGIST Signed Jul 06, 2024@10:40 Performing Laboratory: Surgical Pathology Report Performed By: [facility] [CLIA# [id number]] [place] [address] $FTR - - - - - - - - - - - - - - - - - - - - - - - - - - - - - - - - - - - - - - - - (End of report) EDUARDO PALOMARES MD [facility] Date Jul 06, 2024 - - - - - - - - - - - - - - - - - - - - - - - - - - - - - - - - - - - - - - - - FLACA WEAVER STANDARD FORM 515 ID:[id number] SEX:M :1950 AGE: 73 LOC:81467 ADM:Jun DX:DIVERTICULITIS PCP: Jatinder Cabrera /alexi/ EDUARDO PALOMARES MD STAFF PATHOLOGIST Signed: 07/06/2024 10:[address] [facility] Jun 22, 2024 01:15 PM LR MICROBIOLOGY RE PORT: Reporting Lab: [facility] [CLIA# [id number]] [place] [address] Accession [UID]: [id number] [[id number]] Received: Jun 22, 2024@13:38 Collection sample: FLUID Collection date: Jun 22, 2024 13:15 Provider: ANGELA HOLDEN Comment on specimen: LLQ ABSCESS, RECEIVED IN ANAEROBIC TRANSPORT VIAL Test(s) ordered: GRAM STAIN.................... completed: Jun 22, 2024 15:03 CULTURE & SUSCEPTIBILITY...... completed: Jun 25, 2024 * BACTERIOLOGY FINAL REPORT => Jun 25, 2024 10:56 TECH CODE: [id number] GRAM STAIN: DIRECT SMEAR of specimen before [...] Performing Laboratory: Bacteriology Report Performed By: [facility] [CLIA# [id number]] [place] [address] [facility] Jun 22, 2024 01:15 PM LR MICROBIOLOGY RE PORT: Reporting Lab: [facility] [CLIA# [id number]] [id number] Accession [UID]: [id number] [[id number]] Received: Jun 22, 2024@13:38 Collection sample: FLUID Collection date: Jun 22, 2024 13:15 Provider: ANGELA HOLDEN Comment on specimen: LLQ ABSCESS, RECEIVED IN ANAEROBIC TRANSPORT VIAL Test(s) ordered: ANAEROBIC CULTURE............. completed: Jun 28, 2024 * BACTERIOLOGY FINAL REPORT => Jun 28, 2024 10:08 TECH CODE: [id number] CULTURE RESULTS: HEAVY GROWTH MIXED ANAEROBES Comment: including the followin+ Bacteroides fragilis 4+ Bacteroides vulgatus 4+ Clostridium innocuum Beta-lactamase negative 4+ Bacteroides caccae 4+ Parvimonas micra 4+ Bacteroides uniformis 4+ Gemella morbillorum 4+ anaerobic small, Gram Positive Rods 4+ Bacteroides thetaiotaomicron Standard workup is now complete. Bacteriology Remark(s): THIS REPORT IS FINAL =--=--=--=--=--=--=--=--=--= --=--=--=--=--=--=--=--=--=- -=--=--=--=--=--=--=-- Performing Laboratory: Bacteriology Report Performed By: [facility] [CLIA# [id number]] [place] [address] [facility] Jun 21, 2024 06:12 PM LR MICROBIOLOGY RE PORT: Reporting Lab: [facility] [IA# [id number]] [place] [address] Accession [UID]: [id number] [[id number]] Received: Jun 21, 2024@18:12 Collection sample: BLOOD [...] Performing Laboratory: Bacteriology Report Performed By: [facility] [CLIA# [id number]] [place] [address] [facility] Jun 21, 2024 06:11 PM LR MICROBIOLOGY RE PORT: Reporting Lab: [facility] [CLIA# [id number]] [place] [address] Accession [UID]: [id number] [[id number]] Received: Jun 21, 2024@18:11 Collection sample: BLOOD [...] Performing Laboratory: Bacteriology Report Performed By: [facility] [CLIA# [id number]] [place] [address] [facility] Jun 08, 2024 11:00 AM LR MICROBIOLOGY RE PORT: Reporting Lab: [facility] [CLIA# [id number]] [place] [address] Accession [UID]: [id number] [[id number]] Received: Jun 08, 2024@11:00 Collection sample: URINE Collection date: Jun 08, 2024 11:00 Provider: PALMIRA POWELL Comment on specimen: urine Test(s) ordered: CULTURE & SUSCEPTIBILITY...... completed: Jun 09, 2024 * BACTERIOLOGY FINAL REPORT => Jun 09, 2024 19:12 TECH CODE: [id number] CULTURE RESULTS: ESCHERICHIA COLI - Quantity: >100,000 [...] Performing Laboratory: Bacteriology Report Performed By: [facility] [CLIA# [id number]] [place] [address] [facility] Encounter Notes: All associated encounter notes This section contains the clinical notes associated to the Encounter. Date/Time Encounter Note(s) Provider Source Jul 02, 2024 08:39 AM ADDENDUM: LOCAL TITLE: Addendum STANDARD TITLE: ADDENDUM DATE OF NOTE: JUL 02, 2024@08:39:49 ENTRY DATE: JUL 02, 2024@08:39:50 AUTHOR: LILIAM POWELL EXP COSIGNER: URGENCY: STATUS: COMPLETED Pt. was scheduled for preop risk stratification w/Cardiology Consult on 06/27/24 but no-showed his appts. Discussed w/Dr. Arredondo and Dr. Rodriges in regards to pt's single episode of chest tightness at rest >1 month ago, in relation to his prior cardiac hx and missed preop Cardiac consult. Pt. 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 At that time, he had an ECHO done during his initial hospitalization for diverticulitis that was WNL and no further w/up was recommended. Despite not completing the cardiac visit as would be ideal, the pt has since had a recurrence of diverticulitis w/increased risk for sepsis and complications, and there is an increased urgency of going forward w/surgical intervention. Pt has fair METS and can walk 2 blocks and go up 2 FOS w/o CV sx, he will be treated perioperatively as a known CAD pt and consensus was made to proceed w/surgery tomorrow as scheduled. /es/ LILIAM POWELL, HAYLIE, AGNP-C ADULT BONIFACIO NURSE PRACTITIONER Signed: 07/02/2024 08:54 Receipt Acknowledged By: * AWAITING SIGNATURE * WENCESLAO ARREDONDO Jeronimo 07/02/2024 09:47 /es/ EDUARDO RODRIGES MD ANESTHESIOLOGIST --- Original Document --- 06/08/24 H&P HISTORY & PHYSICAL: Preoperative Anesthesia Assessment Chief Complaint: 73 year old with BMI 29.7 for preoperative evaluation. This is a face to face visit. ----History of present illness Mr. Weaver is a pleasant 73 y/o male w/diverticulitis & colovesicular fistula w/intra-abdominal abscess requiring a drain. He is being evaluated preoperatively for lap sigmoidectomy w/ICG and bilateral urteral stents scheduled on 07/03/24. 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 Denies COVID + hx in the last 3 months Pt. denies recent cold/cough/flu/fever/COVID sx Pt. instructed to notify surgical team for development of any URI sx prior to surgery ----Allergies TERAZOSIN (Mar 13, 2015) - nausea ----VITAL SIGNS ------- HR: 58 (06/08/2024 11:43) BP: 147/73 (06/08/2024 11:43) RR: 18 (06/08/2024 11:43) O2: 97% (06/08/2024 11:43) Temp: 97.5 F [36.4 C] (06/08/2024 11:43) HT: 70 in [177.8 cm] (06/08/2024 11:43) WT: 206.4 lb [93.62 kg] (06/08/2024 11:43) BMI: 29.7 ----Past Surgical History No personal or family history of anesthesia complications 07/03/2024 Laparoscopic Sigmoidectomy with REQUESTED ICG and bilateral ureteral stents 09/03/2015 EUA, Hemorrhoidectomy (COMPLETED) Anesthesia MAC converted to GETA, pt was not tolerating procedure despite heavy multimodal sedation and LA so we returned supine, induced GA and successfully placed ETT and began GA, DL x1 by KATHY, ETT 8.0, straight-2 blade, grade I view 09/02/2014 left median nerve decompression (COMPLETED) Other: remote lumbar surgeries '80s - partial fusion ----SOCIAL HISTORY ------ Tobacco: No quit 10 yrs ago, 1.5-2 PPD, started as a teen Alcohol: Yes 2-3 drinks a few times/week, advised to abstain per preop guidelines Substance use: Yes smokes cannabis daily, advised to abstain per preop guidelines ----FAMILY HISTORY ------ No sig family medical hx ----PAST MEDICAL HISTORY - 1. Hypertension 2. Cannabis misuse 3. Impulse [...] . No additional CRC surveillance recommended by is consultant. 9. Decreased vitamin D - 02.24.2017 [...] - By 02.13.[address] 03.14.2020 OSH(ED [place], [place]): Pt. Declined Admission. 03.14.2020 CT with Mild Sigmoid diverticulitis. 04.23.2020 ED(OSH): Declined admission. 17. 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 18. Ex-tobacco user 19. Impaired Fasting Glucose (SCT [id number]) - 02.26.2014 A1c 5.8%. 20. Adrenal mass [...] 24. Hiatal hernia 25. Shoulder Pain (SCT [id number]) 26. Trigger finger 27. [facility] Primary: Dr. Cathi Simeon, [facility], [place] [address]. ----FUNCTIONAL CAPACITY IN MEASURE OF EXERCISE TOLERANCE BEFORE SURGERY (METS) METS: ~4 can walk 2 blocks and go up 2 FOS w/o CV sx ----MEDICATIONS Medication list reviewed with patient and/or patient's family Active/Pending/ Outpatient Medications 1) ACETAMINOPHEN 325MG TAB TAKE TWO TABLETS [...] ACTIVE MOUTH EVERY DAY FOR BLOOD PRESSURE 7) [...] EVERY 5 MINUTES--NO MORE THAN 3 TOTAL - last use 1 month ago 11) PSYLLIUM ORAL PWD TAKE 2 TEASPOONSFUL BY MOUTH EVERY ACTIVE DAY FOR CONSTIPATION 12) SODIUM CHLORIDE 0.9% PF INJ SYR 10ML INJECT 10 ML ACTIVE TOPICALLY DIRECTED FOR IRRIGATION FOR WOUND CLEANSING 13) SPIRONOLACTONE 25MG TAB TAKE ONE-HALF TABLET BY MOUTH ACTIVE EVERY DAY FOR BLOOD PRESSURE 1) AMOXICILLIN 875/CLAV K 125MG TAB TAKE 1 TABLET BY MOUTH TWICE A DAY - completed wknd Naltrexone: No Buprenorphine: No ---LABORATORY STUDIES -- HGB- HGB 16.0 (06/08/24) HCT- HCT 47.1 (06/08/24) WBC- WBC 16.1 H (06/08/24) PLT- PLT 228 (06/08/24) INR- INR 1.0 PLASMA (06/08/24 10:59) APTT- APTT 29.3 (04/23/24) GLUCOSE- GLUCOSE 93 (06/08/24) NA- SODIUM 139 (06/08/24) K- POTASSIUM 3.7 (06/08/24) CL- CHLORIDE 106 (06/08/24) CREATINE- CREATININE 0.9 (06/08/24) BILIRUBIN- BILIRUBIN, TOTAL 0.7 (04/23/24) AST- 04/23/2024 13:20 PLASMA AST/SGOT 28 U/L 11 - 34 ALT- 04/23/2024 13:20 PLASMA ALT/SGPT 19 U/L Ref: <=44 GFR- EGFR (04/01) 07/10/2021@0641 74 CREATININE EGFR (CKD-EPI) 06/08/2024@1059 >90 A1C- HEMOGLOBIN A1C 4.9 (06/08/24) Troponin- TROPONIN - NONE FOUND Blood Type- SLT - Lab Tests Selected No selection items chosen for this component. ----DIAGNOSTIC STUDIES -- EK06/08/24 SB w/1st degree AVB w/occasional PVCs, RBBB, L-anterior hemiblock, bifasicular block, minimal voltage criteria for LVH, anteroseptal infarct, ag eundet, 55 bpm 04/23/24 SB w/2nd degree AVB (mobitz I), RBBB, L-anterior hemiblock, bifasicular block, cannot r/o anteroseptal infarct, age undet, 48 bpm ECHO: 04/24/24 Reason For Study: Wenkeback Summary: 1. The left ventricular systolic function is normal. The visually estimated ejection fraction is 60-65%. 2. No regional left ventricular wall motion abnormality. 3. The right ventricular systolic function is normal. 4. No hemodynamically significant valvular abnormalities. 5. The IVC is mildly dilated with an abnormal respiratory collapse, suggestive of increased right atrial pressure. 6. No prior studies available for direct comparison. Stress Test: 02/12/16 Impression: 1. Findings are suggestive of moderate inferior ischemia 2. Left ventricular ejection fraction is 61 %. No focal wall motion abnormality. PFTs: 06/30/23 Spirometry Ref LLN Pre ZScore% Ref FVC L 3.87 2.90 4.28 0.70 110.7 FEV 1 L 2.95 2.10 2.98 0.07 101.1 FEV1/FVC% 77 64 70 -0.93 PEF L/s 8.03 6.04 8.73 0.58 108.8 Z-Score Pre-Bronchodilator FVC L 0.70 FEV 1 L 0.07 FEV1/FVC % -1 Parameter FVC FEV1 FEV1/FVC TLC RV DLCO_SB 06/30/2023 4.28 2.98 70 Interpretation: Spirometry is Normal. LDCT: 01/24/24 INDEX NODULE: Location: Left Lower Lobe Series: [...] benign appearance and is unchanged from prior. Abd CT: 05/25/24 Impression: 1. Overall, no significant change since [...] right and 2.1 cm on the left. ----Risk Stratification -------- Revised Cardiac Risk Index (RCRI): 2 risk factors or class III CAPRINI score: 8 or high risk ---Physical Exam ------ HR: 58 (06/08/2024 11:43) BP: 147/73 (06/08/2024 11:43) RR: 18 (06/08/2024 11:43) O2: 97% (06/08/2024 11:43) Temp: 97.5 F [36.4 C] (06/08/2024 11:43) Airway Exam: Mallampati Class: II Mouth opening: full Neck: full range of motion Thyromental distance: >6cm Dentition: normal Cardiac System: Cardiovascular exam normal: regular rhythm and rate, no murmur Respiratory: Clear to auscultation, normal respiratory rate and effort Mental/Neuro exam: Alert, oriented, calm, cooperative ----ASSESSMENT/PLAN-------- This is a 73Y.O. undergoing evaluation for lap sigmoidectomy w/ICG and bilateral urteral stents. The final anesthesia plan will be determined by the providers on the day of surgery. 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 Denies palpitations/presyncope/syn cope/orthopnea/SOB/PND. +Pt reports an episode of L-sided chest tightness that lasted a while but unable to quantify time and occured at rest, which improved w/1 nitro ~1 month ago. Denies associated sx. Episodes otherwise occur ~1x/month basis, compared to in when he was evaluated and having daily CP complaints. At that time, pt was referred for stress test but appears to not have been done - sx seem to have improved w/cardiac med adjustments. Discussed w/PAC Attending Dr. Levy, in pt w/METS ~4 undergoing high risk surgery, will place Cardiology consult for preop cardiac risk stratification. 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 He was otherwise notified and agreeable, will add on surgical team as FYI. Heme: Leukocytosis w/elevated WBC 16k, was 10.5-12.5k while hospitalized for diverticulitis in Mar. He currently denies infectious sx - no change to bowel/bladder, abdominal pain, or cold/flu sx. Indeterminate etiology, alerting surgical team for f/up. Pulmonary: JUANJOSE not on CPAP. Small hiatal hernia and GERD sx controlled on occasional tums. +Daily cannabis smoker, advised to abstain x1 day preop. : Constipation otherwise denies diarrhea. Dermatologic: Denies rash/open wounds. Anesthesia Plan: Amenable to blood transfusions as required. Final plan TBD by anesthesia and surgical teams on DOS. ----Patient Education ----- Discussed NPO, Med Mgmt, Transportation, Financial Reporting Director Guidelines, Regional (as deemed appropriate), [place], CVC, anesthesia team, IV Access, monitoring, pre/post op expectations & GETA vs MAC Preoperative Medication Management: Hold all multivitamins, herbal supplements, NSAIDS x 7 days prior to surgery Hold HCTZ/lisinopril on DOS Hold fiber on DOS /alexi/ LILIAM POWELL, DNP, AGNP-C ADULT BONIFACIO NURSE PRACTITIONER Signed: 06/10/2024 18:24 Receipt Acknowledged By: 06/12/2024 15:58 /jerome POWELL MD STAFF SURGEON, COLON/RECTAL 06/11/2024 08:45 /jerome CHRISTIANSON, RN, N General Surgery/Colorectal Coordinator 06/12/2024 ADDENDUM STATUS: COMPLETED Please call patient - sending antibiotics for positive UTI. Also ordered repeat CBC and UA for 06/27/2024. 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 /jerome POWELL MD STAFF SURGEON, COLON/RECTAL Signed: 06/12/2024 16:00 Receipt Acknowledged By: 06/13/2024 08:05 /jerome CHRISTIANSON, RN, N General Surgery/Colorectal Coordinator 06/13/2024 ADDENDUM STATUS: COMPLETED [employer] Supervisor spoke with the regarding the outpatient pharmacy will mail out your antibiotics for positive UTI today. Also, Dr. Powell ordered a repeat CBC and UA for 06/27/2024. Per Dr. 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 Please go to your scheduled blood draw appointment on 06/27/2024@1015. The verbalized and understood. All questions answered and no other concerns. /jerome CHRISTIANSON, RN, N General Surgery/Colorectal Coordinator Signed: 06/13/2024 08:17 Receipt Acknowledged By: 06/13/2024 08:20 /jerome POWELL MD STAFF SURGEON, COLON/RECTAL LILIAM POWELL [facility] Jun 13, 2024 08:06 AM ADDENDUM: LOCAL TITLE: Addendum STANDARD TITLE: ADDENDUM DATE OF NOTE: JUN 13, 2024@08:06:10 ENTRY DATE: JUN 13, 2024@08:06:11 AUTHOR: RAMIRO FABIAN EXP COSIGNER: URGENCY: STATUS: COMPLETED [employer] Supervisor spoke with the regarding the outpatient pharmacy will mail out your antibiotics for positive UTI today. Also, Dr. Powell ordered a repeat CBC and UA for 06/27/2024. Per Dr. 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 Please go to your scheduled blood draw appointment on 06/27/2024@1015. The verbalized and understood. All questions answered and no other concerns. /es/ RAMIRO HENAON, RN, PHN General Surgery/Colorectal Coordinator Signed: 06/13/2024 08:17 Receipt Acknowledged By: 06/13/2024 08:20 /es/ PALMIRA POWELL MD STAFF SURGEON, COLON/RECTAL --- Original Document --- 06/08/24 H&P HISTORY & PHYSICAL: Preoperative Anesthesia Assessment Chief Complaint: 73 year old with BMI 29.7 for preoperative evaluation. This is a face to face visit. ----History of present illness Mr. Weaver is a pleasant 73 y/o male w/diverticulitis & colovesicular fistula w/intra-abdominal abscess requiring a drain. He is being evaluated preoperatively for lap sigmoidectomy w/ICG and bilateral urteral stents scheduled on 07/03/24. 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 Denies COVID + hx in the last 3 months Pt. denies recent cold/cough/flu/fever/COVID sx Pt. instructed to notify surgical team for development of any URI sx prior to surgery ----Allergies TERAZOSIN (Mar 13, 2015) - nausea ----VITAL SIGNS ------- HR: 58 (06/08/2024 11:43) BP: 147/73 (06/08/2024 11:43) RR: 18 (06/08/2024 11:43) O2: 97% (06/08/2024 11:43) Temp: 97.5 F [36.4 C] (06/08/2024 11:43) HT: 70 in [177.8 cm] (06/08/2024 11:43) WT: 206.4 lb [93.62 kg] (06/08/2024 11:43) BMI: 29.7 ----Past Surgical History No personal or family history of anesthesia complications 07/03/2024 Laparoscopic Sigmoidectomy with REQUESTED ICG and bilateral ureteral stents 09/03/2015 EUA, Hemorrhoidectomy (COMPLETED) Anesthesia MAC converted to GETA, pt was not tolerating procedure despite heavy multimodal sedation and LA so we returned supine, induced GA and successfully placed ETT and began GA, DL x1 by KATHY, ETT 8.0, straight-2 blade, grade I view 09/02/2014 left median nerve decompression (COMPLETED) Other: remote lumbar surgeries '80s - partial fusion ----SOCIAL HISTORY ------ Tobacco: No quit 10 yrs ago, 1.5-2 PPD, started as a teen Alcohol: Yes 2-3 drinks a few times/week, advised to abstain per preop guidelines Substance use: Yes smokes cannabis daily, advised to abstain per preop guidelines ----FAMILY HISTORY ------ No sig family medical hx ----PAST MEDICAL HISTORY - 1. Hypertension 2. Cannabis misuse 3. Impulse [...] . No additional CRC surveillance recommended by is consultant. 9. Decreased vitamin D - 02.24.2017 [...] - By 02.13.[address] 03.14.2020 OSH(ED [place], [place]): Pt. Declined Admission. 03.14.2020 CT with Mild Sigmoid diverticulitis. 04.23.2020 ED(OS[facility]): Declined admission. 17. 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 18. Ex-tobacco user 19. Impaired Fasting Glucose ([facility] [id number]) - 02.26.2014 A1c 5.8%. 20. Adrenal mass [...] 24. Hiatal hernia 25. Shoulder Pain ([facility] [id number]) 26. Trigger finger 27. [facility] Primary Care - Community Care Primary: Dr. Cathi Simeon, [facility], [place] [address]. ----FUNCTIONAL CAPACITY IN MEASURE OF EXERCISE TOLERANCE BEFORE SURGERY (METS) METS: ~4 can walk 2 blocks and go up 2 FOS w/o CV sx ----MEDICATIONS Medication list reviewed with patient and/or patient's family Active/Pending/ Outpatient Medications 1) ACETAMINOPHEN 325MG TAB TAKE TWO TABLETS [...] ACTIVE MOUTH EVERY DAY FOR BLOOD PRESSURE 7) [...] EVERY 5 MINUTES--NO MORE THAN 3 TOTAL - last use 1 month ago 11) PSYLLIUM ORAL PWD TAKE 2 TEASPOONSFUL BY MOUTH EVERY ACTIVE DAY FOR CONSTIPATION 12) SODIUM CHLORIDE 0.9% PF INJ SYR 10ML INJECT 10 ML ACTIVE TOPICALLY DIRECTED FOR IRRIGATION FOR WOUND CLEANSING 13) SPIRONOLACTONE 25MG TAB TAKE ONE-HALF TABLET BY MOUTH ACTIVE EVERY DAY FOR BLOOD PRESSURE 1) AMOXICILLIN 875/CLAV K 125MG TAB TAKE 1 TABLET BY MOUTH TWICE A DAY - completed wknd Naltrexone: No Buprenorphine: No ---LABORATORY STUDIES -- HGB- HGB 16.0 (06/08/24) HCT- HCT 47.1 (06/08/24) WBC- WBC 16.1 H (06/08/24) PLT- PLT 228 (06/08/24) INR- INR 1.0 PLASMA (06/08/24 10:59) APTT- APTT 29.3 (04/23/24) GLUCOSE- GLUCOSE 93 (06/08/24) NA- SODIUM 139 (06/08/24) K- POTASSIUM 3.7 (06/08/24) CL- CHLORIDE 106 (06/08/24) CREATINE- CREATININE 0.9 (06/08/24) BILIRUBIN- BILIRUBIN, TOTAL 0.7 (04/23/24) AST- 04/23/2024 13:20 PLASMA AST/SGOT 28 U/L 11 - 34 ALT- 04/23/2024 13:20 PLASMA ALT/SGPT 19 U/L Ref: <=44 GFR- EGFR (04/01) 07/10/2021@0641 74 CREATININE EGFR (CKD-EPI) 06/08/2024@1059 >90 A1C- HEMOGLOBIN A1C 4.9 (06/08/24) Troponin- TROPONIN - NONE FOUND Blood Type- SLT - Lab Tests Selected No selection items chosen for this component. ----DIAGNOSTIC STUDIES -- EK06/08/24 SB w/1st degree AVB w/occasional PVCs, RBBB, L-anterior hemiblock, bifasicular block, minimal voltage criteria for LVH, anteroseptal infarct, ag eundet, 55 bpm 04/23/24 SB w/2nd degree AVB (mobitz I), RBBB, L-anterior hemiblock, bifasicular block, cannot r/o anteroseptal infarct, age undet, 48 bpm ECHO: 04/24/24 Reason For Study: Wenkeback Summary: 1. The left ventricular systolic function is normal. The visually estimated ejection fraction is 60-65%. 2. No regional left ventricular wall motion abnormality. 3. The right ventricular systolic function is normal. 4. No hemodynamically significant valvular abnormalities. 5. The IVC is mildly dilated with an abnormal respiratory collapse, suggestive of increased right atrial pressure. 6. No prior studies available for direct comparison. Stress Test: 02/12/16 Impression: 1. Findings are suggestive of moderate inferior ischemia 2. Left ventricular ejection fraction is 61 %. No focal wall motion abnormality. PFTs: 06/30/23 Spirometry Ref LLN Pre ZScore% Ref FVC L 3.87 2.90 4.28 0.70 110.7 FEV 1 L 2.95 2.10 2.98 0.07 101.1 FEV1/FVC% 77 64 70 -0.93 PEF L/s 8.03 6.04 8.73 0.58 108.8 Z-Score Pre-Bronchodilator FVC L 0.70 FEV 1 L 0.07 FEV1/FVC % -1 Parameter FVC FEV1 FEV1/FVC TLC RV DLCO_SB 06/30/2023 4.28 2.98 70 Interpretation: Spirometry is Normal. LDCT: 01/24/24 INDEX NODULE: Location: Left Lower Lobe Series: [...] benign appearance and is unchanged from prior. Abd CT: 05/25/24 Impression: 1. Overall, no significant change since [...] right and 2.1 cm on the left. ----Risk Stratification -------- Revised Cardiac Risk Index (RCRI): 2 risk factors or class III CAPRINI score: 8 or high risk ---Physical Exam ------ HR: 58 (06/08/2024 11:43) BP: 147/73 (06/08/2024 11:43) RR: 18 (06/08/2024 11:43) O2: 97% (06/08/2024 11:43) Temp: 97.5 F [36.4 C] (06/08/2024 11:43) Airway Exam: Mallampati Class: II Mouth opening: full Neck: full range of motion Thyromental distance: >6cm Dentition: normal Cardiac System: Cardiovascular exam normal: regular rhythm and rate, no murmur Respiratory: Clear to auscultation, normal respiratory rate and effort Mental/Neuro exam: Alert, oriented, calm, cooperative ----ASSESSMENT/PLAN-------- This is a 73Y.O. undergoing evaluation for lap sigmoidectomy w/ICG and bilateral urteral stents. The final anesthesia plan will be determined by the providers on the day of surgery. 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 Denies palpitations/presyncope/syn cope/orthopnea/SOB/PND. +Pt reports an episode of L-sided chest tightness that lasted a while but unable to quantify time and occured at rest, which improved w/1 nitro ~1 month ago. Denies associated sx. Episodes otherwise occur ~1x/month basis, compared to in when he was evaluated and having daily CP complaints. At that time, pt was referred for stress test but appears to not have been done - sx seem to have improved w/cardiac med adjustments. Discussed w/PAC Attending Dr. Levy, in pt w/METS ~4 undergoing high risk surgery, will place Cardiology consult for preop cardiac risk stratification. 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 He was otherwise notified and agreeable, will add on surgical team as FYI. Heme: Leukocytosis w/elevated WBC 16k, was 10.5-12.5k while hospitalized for diverticulitis in Mar. He currently denies infectious sx - no change to bowel/bladder, abdominal pain, or cold/flu sx. Indeterminate etiology, alerting surgical team for f/up. Pulmonary: JUANJOSE not on CPAP. Small hiatal hernia and GERD sx controlled on occasional tums. +Daily cannabis smoker, advised to abstain x1 day preop. : Constipation otherwise denies diarrhea. Dermatologic: Denies rash/open wounds. Anesthesia Plan: Amenable to blood transfusions as required. Final plan TBD by anesthesia and surgical teams on DOS. ----Patient Education ----- Discussed NPO, Med Mgmt, Transportation, Financial Reporting Director Guidelines, Regional (as deemed appropriate), [place], CVC, anesthesia team, IV Access, monitoring, pre/post op expectations & GETA vs MAC Preoperative Medication Management: Hold all multivitamins, herbal supplements, NSAIDS x 7 days prior to surgery Hold HCTZ/lisinopril on DOS Hold fiber on DOS /alexi/ LILIAM POWELL, HAYLIE, AGNP-C ADULT BONIFACIO NURSE PRACTITIONER Signed: 06/10/2024 18:24 Receipt Acknowledged By: 06/12/2024 15:58 /jerome POWELL MD STAFF SURGEON, COLON/RECTAL 06/11/2024 08:45 /jerome CHRISTIANSON, RN, N General Surgery/Colorectal Coordinator 06/12/2024 ADDENDUM STATUS: COMPLETED Please call patient - sending antibiotics for positive UTI. Also ordered repeat CBC and UA for 06/27/2024. 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 /jerome POWELL MD STAFF SURGEON, COLON/RECTAL Signed: 06/12/2024 16:00 Receipt Acknowledged By: 06/13/2024 08:05 /jerome CHRISTIANSON, RN, N General Surgery/Colorectal Coordinator RAMIRO FABIAN [facility] Jun 12, 2024 03:59 PM ADDENDUM: LOCAL TITLE: Addendum STANDARD TITLE: ADDENDUM DATE OF NOTE: JUN 12, 2024@15:59:30 ENTRY DATE: JUN 12, 2024@15:59:31 AUTHOR: PALMIRA POWELL COSIGNER: URGENCY: STATUS: COMPLETED Please call patient - sending antibiotics for positive UTI. Also ordered repeat CBC and UA for 06/27/2024. 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 /jerome POWELL MD STAFF SURGEON, COLON/RECTAL Signed: 06/12/2024 16:00 Receipt Acknowledged By: 06/13/2024 08:05 /jerome CHRISTIANSON, RN, N General Surgery/Colorectal Coordinator --- Original Document --- 06/08/24 H&P HISTORY & PHYSICAL: Preoperative Anesthesia Assessment Chief Complaint: 73 year old with BMI 29.7 for preoperative evaluation. This is a face to face visit. ----History of present illness Mr. Weaver is a pleasant 73 y/o male w/diverticulitis & colovesicular fistula w/intra-abdominal abscess requiring a drain. He is being evaluated preoperatively for lap sigmoidectomy w/ICG and bilateral urteral stents scheduled on 07/03/24. 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 Denies COVID + hx in the last 3 months Pt. denies recent cold/cough/flu/fever/COVID sx Pt. instructed to notify surgical team for development of any URI sx prior to surgery ----Allergies TERAZOSIN (Mar 13, 2015) - nausea ----VITAL SIGNS ------- HR: 58 (06/08/2024 11:43) BP: 147/73 (06/08/2024 11:43) RR: 18 (06/08/2024 11:43) O2: 97% (06/08/2024 11:43) Temp: 97.5 F [36.4 C] (06/08/2024 11:43) HT: 70 in [177.8 cm] (06/08/2024 11:43) WT: 206.4 lb [93.62 kg] (06/08/2024 11:43) BMI: 29.7 ----Past Surgical History No personal or family history of anesthesia complications 07/03/2024 Laparoscopic Sigmoidectomy with REQUESTED ICG and bilateral ureteral stents 09/03/2015 EUA, Hemorrhoidectomy (COMPLETED) Anesthesia MAC converted to GETA, pt was not tolerating procedure despite heavy multimodal sedation and LA so we returned supine, induced GA and successfully placed ETT and began GA, DL x1 by GALLERY MANAGER, ETT 8.0, straight-2 blade, grade I view 09/02/2014 left median nerve decompression (COMPLETED) Other: remote lumbar surgeries 's - partial fusion ----SOCIAL HISTORY ------ Tobacco: No quit 10 yrs ago, 1.5-2 PPD, started as a teen Alcohol: Yes 2-3 drinks a few times/week, advised to abstain per preop guidelines Substance use: Yes smokes cannabis daily, advised to abstain per preop guidelines ----FAMILY HISTORY ------ No sig family medical hx ----PAST MEDICAL HISTORY - 1. Hypertension 2. Cannabis misuse 3. Impulse [...] . No additional CRC surveillance recommended by is consultant. 9. Decreased vitamin D - 02.24.2017 [...] - By 02.13.[address] 03.14.2020 OSH(ED [place], [place]): Pt. Declined Admission. 03.14.2020 CT with Mild Sigmoid diverticulitis. 04.23.2020 ED([facility]): Declined admission. 17. 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 18. Ex-tobacco user 19. Impaired Fasting Glucose ([facility] [id number]) - 02.26.2014 A1c 5.8%. 20. Adrenal mass [...] 25. Shoulder Pain ([facility] [id number]) 26. Trigger finger 27. [facility] Primary Care - Community Care Primary: Dr. Cathi Simeon, [facility], [place] [address]. ----FUNCTIONAL CAPACITY IN MEASURE OF EXERCISE TOLERANCE BEFORE SURGERY (METS) METS: ~4 can walk 2 blocks and go up 2 FOS w/o CV sx ----MEDICATIONS Medication list reviewed with patient and/or patient's family Active/Pending/ Outpatient Medications 1) ACETAMINOPHEN 325MG TAB TAKE TWO TABLETS [...] ACTIVE MOUTH EVERY DAY FOR BLOOD PRESSURE 7) [...] EVERY 5 MINUTES--NO MORE THAN 3 TOTAL - last use 1 month ago 11) PSYLLIUM ORAL PWD TAKE 2 TEASPOONSFUL BY MOUTH EVERY ACTIVE DAY FOR CONSTIPATION 12) SODIUM CHLORIDE 0.9% PF INJ SYR 10ML INJECT 10 ML ACTIVE TOPICALLY DIRECTED FOR IRRIGATION FOR WOUND CLEANSING 13) SPIRONOLACTONE 25MG TAB TAKE ONE-HALF TABLET BY MOUTH ACTIVE EVERY DAY FOR BLOOD PRESSURE 1) AMOXICILLIN 875/CLAV K 125MG TAB TAKE 1 TABLET BY MOUTH TWICE A DAY - completed Naltrexone: No Buprenorphine: No ---LABORATORY STUDIES -- HGB- HGB 16.0 (06/08/24) HCT- HCT 47.1 (06/08/24) WBC- WBC 16.1 H (06/08/24) PLT- PLT 228 (06/08/24) INR- INR 1.0 PLASMA (06/08/24 10:59) APTT- APTT 29.3 (04/23/24) GLUCOSE- GLUCOSE 93 (06/08/24) NA- SODIUM 139 (06/08/24) K- POTASSIUM 3.7 (06/08/24) CL- CHLORIDE 106 (06/08/24) CREATINE- CREATININE 0.9 (06/08/24) BILIRUBIN- BILIRUBIN, TOTAL 0.7 (04/23/24) AST- 04/23/2024 13:20 PLASMA AST/SGOT 28 U/L ALT- 04/23/2024 13:20 PLASMA ALT/SGPT 19 U/L Ref: <=44 GFR- EGFR (04/01) 07/10/2021@0641 74 CREATININE EGFR (CKD-EPI) 06/08/2024@1059 >90 A1C- HEMOGLOBIN A1C 4.9 (06/08/24) Troponin- TROPONIN - NONE FOUND Blood Type- SLT - Lab Tests Selected No selection items chosen for this component. ----DIAGNOSTIC STUDIES -- EK06/08/24 SB w/1st degree AVB w/occasional PVCs, RBBB, L-anterior hemiblock, bifasicular block, minimal voltage criteria for LVH, anteroseptal infarct, ag eundet, 55 bpm 04/23/24 SB w/2nd degree AVB (mobitz I), RBBB, L-anterior hemiblock, bifasicular block, cannot r/o anteroseptal infarct, age undet, 48 bpm ECHO: 04/24/24 Reason For Study: Wenkeback Summary: 1. The left ventricular systolic function is normal. The visually estimated ejection fraction is 60-65%. 2. No regional left ventricular wall motion abnormality. 3. The right ventricular systolic function is normal. 4. No hemodynamically significant valvular abnormalities. 5. The IVC is mildly dilated with an abnormal respiratory collapse, suggestive of increased right atrial pressure. 6. No prior studies available for direct comparison. Stress Test: 02/12/16 Impression: 1. Findings are suggestive of moderate inferior ischemia 2. Left ventricular ejection fraction is 61 %. No focal wall motion abnormality. PFTs: 06/30/23 Spirometry Ref LLN Pre ZScore% Ref FVC L 3.87 2.90 4.28 0.70 110.7 FEV 1 L 2.95 2.10 2.98 0.07 101.1 FEV1/FVC% 77 64 70 -0.93 PEF L/s 8.03 6.04 8.73 0.58 108.8 Z-Score Pre-Bronchodilator FVC L 0.70 FEV 1 L 0.07 FEV1/FVC % -1 Parameter FVC FEV1 FEV1/FVC TLC RV DLCO_SB 06/30/2023 4.28 2.98 70 Interpretation: Spirometry is Normal. LDCT: 01/24/24 INDEX NODULE: Location: Left Lower Lobe Series: [...] benign appearance and is unchanged from prior. Abd CT: 05/25/24 Impression: 1. Overall, no significant change since [...] right and 2.1 cm on the left. ----Risk Stratification -------- Revised Cardiac Risk Index (RCRI): 2 risk factors or class III CAPRINI score: 8 or high risk ---Physical Exam ------ HR: 58 (06/08/2024 11:43) BP: 147/73 (06/08/2024 11:43) RR: 18 (06/08/2024 11:43) O2: 97% (06/08/2024 11:43) Temp: 97.5 F [36.4 C] (06/08/2024 11:43) Airway Exam: Mallampati Class: II Mouth opening: full Neck: full range of motion Thyromental distance: >6cm Dentition: normal Cardiac System: Cardiovascular exam normal: regular rhythm and rate, no murmur Respiratory: Clear to auscultation, normal respiratory rate and effort Mental/Neuro exam: Alert, oriented, calm, cooperative ----ASSESSMENT/PLAN-------- This is a 73Y.O. undergoing evaluation for lap sigmoidectomy w/ICG and bilateral urteral stents. The final anesthesia plan will be determined by the providers on the day of surgery. 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 Denies palpitations/presyncope/syn cope/orthopnea/SOB/PND. +Pt reports an episode of L-sided chest tightness that lasted a while but unable to quantify time and occured at rest, which improved w/1 nitro ~1 month ago. Denies associated sx. Episodes otherwise occur ~1x/month basis, compared to in ' when he was evaluated and having daily CP complaints. At that time, pt was referred for stress test but appears to not have been done - sx seem to have improved w/cardiac med adjustments. Discussed w/PAC Attending Dr. Levy, in pt w/METS ~4 undergoing high risk surgery, will place Cardiology consult for preop cardiac risk stratification. 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 He was otherwise notified and agreeable, will add on surgical team as FYI. Heme: Leukocytosis w/elevated WBC 16k, was 10.5-12.5k while hospitalized for diverticulitis in Mar. He currently denies infectious sx - no change to bowel/bladder, abdominal pain, or cold/flu sx. Indeterminate etiology, alerting surgical team for f/up. Pulmonary: JUANJOSE not on CPAP. Small hiatal hernia and GERD sx controlled on occasional tums. +Daily cannabis smoker, advised to abstain x1 day preop. : Constipation otherwise denies diarrhea. Dermatologic: Denies rash/open wounds. Anesthesia Plan: Amenable to blood transfusions as required. Final plan TBD by anesthesia and surgical teams on DOS. ----Patient Education ----- Discussed NPO, Med Mgmt, Transportation, Financial Reporting Director Guidelines, Regional (as deemed appropriate), Sidney, CVC, anesthesia team, IV Access, monitoring, pre/post op expectations & GETA vs MAC Preoperative Medication Management: Hold all multivitamins, herbal supplements, NSAIDS x 7 days prior to surgery Hold HCTZ/lisinopril on DOS Hold fiber on DOS /es/ LILIAM POWELL, DNP, AGNP-C ADULT BONIFACIO NURSE PRACTITIONER Signed: 06/10/2024 18:24 Receipt Acknowledged By: 06/12/2024 15:58 /alexi/ PALMIRA POWELL MD STAFF SURGEON, COLON/RECTAL 06/11/2024 08:45 /alexi/ RAMIRO HENAON, RN, PHN General Surgery/Colorectal Coordinator PALMIRA POWELL [facility] Jun 08, 2024 12:31 PM H & P NOTE: LOCAL TITLE: H&P HISTORY & PHYSICAL STANDARD TITLE: H & P NOTE DATE OF NOTE: JUN 08, 2024@12:31 ENTRY DATE: JUN 08, 2024@12:32 AUTHOR: LILIAM POWELL EXP COSIGNER: URGENCY: STATUS: COMPLETED H&P HISTORY & PHYSICAL Has ADDENDA Preoperative Anesthesia Assessment Chief Complaint: 73 year old with BMI 29.7 for preoperative evaluation. This is a face to face visit. ----History of present illness Mr. Weaver is a pleasant 73 y/o male w/diverticulitis & colovesicular fistula w/intra-abdominal abscess requiring a drain. He is being evaluated preoperatively for lap sigmoidectomy w/ICG and bilateral urteral stents scheduled on 07/03/24. 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 Denies COVID + hx in the last 3 months Pt. denies recent cold/cough/flu/fever/COVID sx Pt. instructed to notify surgical team for development of any URI sx prior to surgery ----Allergies TERAZOSIN (Mar 13, 2015) - nausea ----VITAL SIGNS ------- HR: 58 (06/08/2024 11:43) BP: 147/73 (06/08/2024 11:43) RR: 18 (06/08/2024 11:43) O2: 97% (06/08/2024 11:43) Temp: 97.5 F [36.4 C] (06/08/2024 11:43) HT: 70 in [177.8 cm] (06/08/2024 11:43) WT: 206.4 lb [93.62 kg] (06/08/2024 11:43) BMI: 29.7 ----Past Surgical History No personal or family history of anesthesia complications 07/03/2024 Laparoscopic Sigmoidectomy with REQUESTED ICG and bilateral ureteral stents 09/03/2015 EUA, Hemorrhoidectomy (COMPLETED) Anesthesia MAC converted to GETA, pt was not tolerating procedure despite heavy multimodal sedation and LA so we returned supine, induced GA and successfully placed ETT and began GA, DL x1 by KATHY, ETT 8.0, straight-2 blade, grade I view 09/02/2014 left median nerve decompression (COMPLETED) Other: remote lumbar surgeries '80s - partial fusion ----SOCIAL HISTORY ------ Tobacco: No quit 10 yrs ago, 1.5-2 PPD, started as a teen Alcohol: Yes 2-3 drinks a few times/week, advised to abstain per preop guidelines Substance use: Yes smokes cannabis daily, advised to abstain per preop guidelines ----FAMILY HISTORY ------ No sig family medical hx ----PAST MEDICAL HISTORY - 1. Hypertension 2. Cannabis misuse 3. Impulse [...] . No additional CRC surveillance recommended by is consultant. 9. Decreased vitamin D - 02.24.2017 [...] - By 02.13.[address] 03.14.2020 OSH(ED [place], [place]): Pt. Declined Admission. 03.14.2020 CT with Mild Sigmoid diverticulitis. 04.23.2020 ED([facility]): Declined admission. 17. 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 18. Ex-tobacco user 19. Impaired Fasting Glucose (SCT [id number]) - 02.26.2014 A1c 5.8%. 20. Adrenal mass [...] 25. Shoulder Pain ([facility] [id number]) 26. Trigger finger 27. [facility] Primary Care - [facility] Primary: Dr. Cathi Simeon, [facility], [place] [address]. ----FUNCTIONAL CAPACITY IN MEASURE OF EXERCISE TOLERANCE BEFORE SURGERY (METS) METS: ~4 can walk 2 blocks and go up 2 FOS w/o CV sx ----MEDICATIONS Medication list reviewed with patient and/or patient's family Active/Pending/ Outpatient Medications 1) ACETAMINOPHEN 325MG TAB TAKE TWO TABLETS [...] ACTIVE MOUTH EVERY DAY FOR BLOOD PRESSURE 7) [...] EVERY 5 MINUTES--NO MORE THAN 3 TOTAL - last use 1 month ago 11) PSYLLIUM ORAL PWD TAKE 2 TEASPOONSFUL BY MOUTH EVERY ACTIVE DAY FOR CONSTIPATION 12) SODIUM CHLORIDE 0.9% PF INJ SYR 10ML INJECT 10 ML ACTIVE TOPICALLY DIRECTED FOR IRRIGATION FOR WOUND CLEANSING 13) SPIRONOLACTONE 25MG TAB TAKE ONE-HALF TABLET BY MOUTH ACTIVE EVERY DAY FOR BLOOD PRESSURE 1) AMOXICILLIN 875/CLAV K 125MG TAB TAKE 1 TABLET BY MOUTH TWICE A DAY - completed Naltrexone: No Buprenorphine: No ---LABORATORY STUDIES -- HGB- HGB 16.0 (06/08/24) HCT- HCT 47.1 (06/08/24) WBC- WBC 16.1 H (06/08/24) PLT- PLT 228 (06/08/24) INR- INR 1.0 PLASMA (06/08/24 10:59) APTT- APTT 29.3 (04/23/24) GLUCOSE- GLUCOSE 93 (06/08/24) NA- SODIUM 139 (06/08/24) K- POTASSIUM 3.7 (06/08/24) CL- CHLORIDE 106 (06/08/24) CREATINE- CREATININE 0.9 (06/08/24) BILIRUBIN- BILIRUBIN, TOTAL 0.7 (04/23/24) AST- 04/23/2024 13:20 PLASMA AST/SGOT 28 U/L - 34 ALT- 04/23/2024 13:20 PLASMA ALT/SGPT 19 U/L Ref: <=44 GFR- EGFR (04/01) 07/10/2021@0641 74 CREATININE EGFR (CKD-EPI) 06/08/2024@1059 >90 A1C- HEMOGLOBIN A1C 4.9 (06/08/24) Troponin- TROPONIN - NONE FOUND Blood Type- SLT - Lab Tests Selected No selection items chosen for this component. ----DIAGNOSTIC STUDIES -- EK06/08/24 SB w/1st degree AVB w/occasional PVCs, RBBB, L-anterior hemiblock, bifasicular block, minimal voltage criteria for LVH, anteroseptal infarct, ag eundet, 55 bpm 04/23/24 SB w/2nd degree AVB (mobitz I), RBBB, L-anterior hemiblock, bifasicular block, cannot r/o anteroseptal infarct, age undet, 48 bpm ECHO: 04/24/24 Reason For Study: [place] Summary: 1. The left ventricular systolic function is normal. The visually estimated ejection fraction is 60-65%. 2. No regional left ventricular wall motion abnormality. 3. The right ventricular systolic function is normal. 4. No hemodynamically significant valvular abnormalities. 5. The IVC is mildly dilated with an abnormal respiratory collapse, suggestive of increased right atrial pressure. 6. No prior studies available for direct comparison. Stress Test: 02/12/16 Impression: 1. Findings are suggestive of moderate inferior ischemia 2. Left ventricular ejection fraction is 61 %. No focal wall motion abnormality. PFTs: 06/30/23 Spirometry Ref LLN Pre ZScore% Ref FVC L 3.87 2.90 4.28 0.70 110.7 FEV 1 L 2.95 2.10 2.98 0.07 101.1 FEV1/FVC% 77 64 70 -0.93 PEF L/s 8.03 6.04 8.73 0.58 108.8 Z-Score Pre-Bronchodilator FVC L 0.70 FEV 1 L 0.07 FEV1/FVC % -1 Parameter FVC FEV1 FEV1/FVC TLC RV DLCO_SB 06/30/2023 4.28 2.98 70 Interpretation: Spirometry is Normal. LDCT: 01/24/24 INDEX NODULE: Location: Left Lower Lobe Series: [...] benign appearance and is unchanged from prior. Abd CT: 05/25/24 Impression: 1. Overall, no significant change since [...] right and 2.1 cm on the left. ----Risk Stratification -------- Revised Cardiac Risk Index (RCRI): 2 risk factors or class III CAPRINI score: 8 or high risk ---Physical Exam ------ HR: 58 (06/08/2024 11:43) BP: 147/73 (06/08/2024 11:43) RR: 18 (06/08/2024 11:43) O2: 97% (06/08/2024 11:43) Temp: 97.5 F [36.4 C] (06/08/2024 11:43) Airway Exam: Mallampati Class: II Mouth opening: full Neck: full range of motion Thyromental distance: >6cm Dentition: normal Cardiac System: Cardiovascular exam normal: regular rhythm and rate, no murmur Respiratory: Clear to auscultation, normal respiratory rate and effort Mental/Neuro exam: Alert, oriented, calm, cooperative ----ASSESSMENT/PLAN-------- This is a 73Y.O. undergoing evaluation for lap sigmoidectomy w/ICG and bilateral urteral stents. The final anesthesia plan will be determined by the providers on the day of surgery. 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 Denies palpitations/presyncope/syn cope/orthopnea/SOB/PND. +Pt reports an episode of L-sided chest tightness that lasted a while but unable to quantify time and occured at rest, which improved w/1 nitro ~1 month ago. Denies associated sx. Episodes otherwise occur ~1x/month basis, compared to in ' when he was evaluated and having daily CP complaints. At that time, pt was referred for stress test but appears to not have been done - sx seem to have improved w/cardiac med adjustments. Discussed w/PAC Attending Dr. Levy, in pt w/METS ~4 undergoing high risk surgery, will place Cardiology consult for preop cardiac risk stratification. 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 He was otherwise notified and agreeable, will add on surgical team as FYCaryn. Heme: Leukocytosis w/elevated WBC 16k, was 10.5-12.5k while hospitalized for diverticulitis in Mar. He currently denies infectious sx - no change to bowel/bladder, abdominal pain, or cold/flu sx. Indeterminate etiology, alerting surgical team for f/up. Pulmonary: JUANJOSE not on CPAP. Small hiatal hernia and GERD sx controlled on occasional tums. +Daily cannabis smoker, advised to abstain x1 day preop. : Constipation otherwise denies diarrhea. Dermatologic: Denies rash/open wounds. Anesthesia Plan: Amenable to blood transfusions as required. Final plan TBD by anesthesia and surgical teams on DOS. ----Patient Education ----- Discussed NPO, Med Mgmt, Transportation, Financial Reporting Director Guidelines, Regional (as deemed appropriate), [place], CVC, anesthesia team, IV Access, monitoring, pre/post op expectations & GETA vs MAC Preoperative Medication Management: Hold all multivitamins, herbal supplements, NSAIDS x 7 days prior to surgery Hold HCTZ/lisinopril on DOS Hold fiber on DOS /alexi/ LILIAM POWELL DNP, AGNP-C ADULT BONIFACIO NURSE PRACTITIONER Signed: 06/10/2024 18:24 Receipt Acknowledged By: 06/12/2024 15:58 /jerome POWELL MD STAFF SURGEON, COLON/RECTAL 06/11/2024 08:45 /jerome CHRISTIANSON, RN, PHN General Surgery/Colorectal Coordinator 06/12/2024 ADDENDUM STATUS: COMPLETED Please call patient - sending antibiotics for positive UTI. Also ordered repeat CBC and UA for 06/27/2024. 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 /jerome POWELL MD STAFF SURGEON, COLON/RECTAL Signed: 06/12/2024 16:00 Receipt Acknowledged By: 06/13/2024 08:05 /jerome CHRISTIANSON, RN, PHN General Surgery/Colorectal Coordinator 06/13/2024 ADDENDUM STATUS: COMPLETED [employer] Supervisor spoke with the regarding the outpatient pharmacy will mail out your antibiotics for positive UTI today. Also, Dr. Powell ordered a repeat CBC and UA for 06/27/2024. Per Dr. 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 Please go to your scheduled blood draw appointment on 06/27/2024@1015. The verbalized and understood. All questions answered and no other concerns. /alexi/ RAMIRO CHRISTIANSON, RN, PHN General Surgery/Colorectal Coordinator Signed: 06/13/2024 08:17 Receipt Acknowledged By: 06/13/2024 08:20 /alexi/ PALMIRA POWELL MD STAFF SURGEON, COLON/RECTAL 07/02/2024 ADDENDUM STATUS: COMPLETED Pt. was scheduled for preop risk stratification w/Cardiology Consult on 06/27/24 but no-showed his appts. Discussed w/Dr. Arredondo and Dr. Rodriges in regards to pt's single episode of chest tightness at rest >1 month ago, in relation to his prior cardiac hx and missed preop Cardiac consult. Pt. 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 At that time, he had an ECHO done during his initial hospitalization for diverticulitis that was WNL and no further w/up was recommended. Despite not completing the cardiac visit as would be ideal, the pt has since had a recurrence of diverticulitis w/increased risk for sepsis and complications, and there is an increased urgency of going forward w/surgical intervention. Pt has fair METS and can walk 2 blocks and go up 2 FOS w/o CV sx, he will be treated perioperatively as a known CAD pt and consensus was made to proceed w/surgery tomorrow as scheduled. /alexi/ LILIAM POWELL, HAYLIE, AGNP-C ADULT BONIFACIO NURSE PRACTITIONER Signed: 07/02/2024 08:54 Receipt Acknowledged By: * AWAITING SIGNATURE * WENCESLAO ARREDONDO * AWAITING SIGNATURE * EDUARDO RODRIGES PA YENG [facility] Jun 08, 2024 11:44 AM REPORT OF CONTACT: LOCAL TITLE: PATIENT CONTACT NOTE STANDARD TITLE: REPORT OF CONTACT DATE OF NOTE: JUN 08, 2024@11:44 ENTRY DATE: JUN 08, 2024@11:44:33 AUTHOR: LINA ROTH EXP COSIGNER: URGENCY: STATUS: COMPLETED Patient contact Name of : FLACA WEAVER Name/Relationship of Contact if other than [place]: Date & Time of Contact: May@11:44 Type of Contact: In person Reason for Contact: 2F Clinic Nurse Note Reason for visit: ANES Temperature: 97.5 F [36.4 C] (06/08/2024 11:43) Pulse: 58 (06/08/2024 11:43) Respirations: 18 (06/08/2024 11:43) Blood pressure: 147/73 (06/08/2024 11:43) Blood pressure re-check: 147/73 (06/08/2024 11:43) Pain: 0 (06/08/2024 11:43) Pulse oximetry: 97% (06/08/2024 11:43) Weight: 206.4 lb [93.62 kg] (06/08/2024 11:43) Pt.'s BP 143/64 upon arrival w/ re-check 146/73. Pt. states they are taking BP meds as usual. They are asymptomatic at this time. [employer] Supervisor instructed pt. to monitor BP at home & to notify PCP if elevated x 3 days, to which they are agreeable - provider notified & PCP &/or nurse healthcare manager RN tagged in note per protocol. /alexi/ ILNA ROTH METALLURGICAL ENGINEERING TECHNICIAN Signed: 06/08/2024 11:45 Receipt Acknowledged By: 06/13/2024 12:10 /es/ Jatinder Cabrera MD Physician 06/08/2024 13:00 /es/ GUERITA AGUILA, ROSALIND REGISTERED NURSE LINA ROTH [facility]
--- OUTSIDE RECORDS SUMMARY | 2024-07-16 07:29 | XMS_ITS | Encounter Summary ---
Author Name [facility] Organization [facility] Address [address] [place] [address] Care Team Providers Care Support Staff Name Role Phone JATINDER CABRERA Primary Care [...] PART A Sep 29, 2016 PART A [id number] [phone] JUDY WEAVER PATIENT Selected Encounter This section includes the information on record at [place] for the Encounter. Date/Time Encounter Type Encounter Description Reason Provider Source Jun 21, 2024 03:48 PM Outpatient Encounter TELEPHONE TRIAGE AL CANELA Encounter Template Text not used by [place] [...] 2024 07:00 AM AMBULATORY - NONE [place] [facility] Jun 27, 2024 07:30 AM [place] [place] [facility] Jun 27, 2024 08:00 AM [place] [facility] Jul 03, 2024 05:55 [facility] Jul 13, 2024 08:15 AM [...] of theEncounter. The data comes from all [facility] facilities. Test Date/Time Test Type Test Details Facility Name May 28, 2024 12:00 AM Laboratory - Blood Bank Order TYPE & SCREEN - LAB BLOOD SP [facility] Jun 08, 2024 09:57 AM Laboratory - Chemi stry Order URINALYSIS URINE WC ONCE [facility] Jun 12, 2024 12:00 AM Laboratory - Chemi stry Order BNP PLASMA SP ONCE [facility] Jun 21, 2024 05:45 PM Laboratory - Blood Bank Order TYPE & SCREEN - LAB BLOOD [facility] Jul 03, 2024 12:00 AM Laboratory - Blood Bank Order TYPE & SCREEN - LAB BLOOD [facility] Jul 16, 2024 12:00 AM Laboratory - Chemi stry Order CBC BLOOD SP ONCE [facility] Jul 17, 2024 12:00 AM Laboratory - Chemi stry Order BASIC METABOLIC PANEL+MG PLASMA SP ONCE [facility] Lab Results: +/- [...] Range Comment Jul 10, 2024 07:16 AM [facility] PHOSPHORUS Specimen Type: PLASMA No comment entered. Ordering Provider: JUANCARLOS ECHOLS Report Released Date/Time: Jul 09, 2024 12:23 PM Reporting Lab: [facility] [address] Performing Lab: [facility] [address] PHOSPHORUS 3.0 mg/dL 2.3-4.3 Jul 10, 2024 07:16 AM [facility] BASIC METABOLIC PANEL+MG Specimen Type: PLASMA No comment entered. Ordering Provider: JUANCARLOS ECOHLS S Report Released Date/Time: Jul 09, 2024 12:23 PM Reporting Lab: [facility] [address] Performing Lab: [facility] [address] CREATININE 0.7 mg/dL 0.7-1.2 UREA NITROGEN 27 mg/dL H 8-26 GLUCOSE 104 mg/dL H 70-100 SODIUM 133 mmol/L L 136-145 POTASSIUM 4.3 mmol/L 3.5-5.1 CHLORIDE 102 mmol/L 98-107 CO2 19 mmol/L L 22-29 CALCIUM 10.1 mg/dL 8.4-10.2 MAGNESIUM 1.9 mg/dL 1.6-2.6 ANION GAP 12 mmol/L 5-15 .CREAT EGFR(CKD-EPI) >90 >60 Jul 10, 2024 07:15 AM [facility] CBC Specimen Type: BLOOD No comment entered. Ordering Provider: JUANCARLOS ECHOLS S Report Released Date/Time: Jul 09, 2024 12:23 PM Reporting Lab: [facility] [address] Performing Lab: [facility] [address] WBC 18.8 H 4.0-11.0 RBC 5.08 4.60-6.20 HGB 15.9 g/dL 13.5-17.9 HCT 46.8 41.0-54.0 MCV 92.1 fL 80.0-100.0 MCH 31.3 pg 27.0-33.0 MCHC 34.0 g/dL 32.0-37.5 PLT 479 H 150-400 MPV 10.2 fL 9.1-13.0 RDW 13.7 11.5-14.5 Jul 09, 2024 07:08 AM [facility] CBC Specimen Type: BLOOD No comment entered. Ordering Provider: QUYNH WEISS AV Report Released Date/Time: Jul 08, 2024 06:18 PM Reporting Lab: [facility] [address] Performing Lab: [facility] [address] WBC 15.3 H 4.0-11.0 RBC 4.91 4.60-6.20 HGB 15.1 g/dL 13.5-17.9 HCT 45.7 41.0-54.0 MCV 93.1 fL 80.0-100.0 MCH 30.8 pg 27.0-33.0 MCHC 33.0 g/dL 32.0-37.5 PLT 443 H 150-400 MPV 10.0 fL 9.1-13.0 RDW 13.5 11.5-14.5 Jul 08, 2024 10:50 AM [facility] URINALYSIS Specimen Type: URINE No comment entered. Ordering Provider: KATELYNN PERSON Report Released Date/Time: Jul 08, 2024 08:41 AM Reporting Lab: [facility] [address] Performing Lab: [facility] [address] URINE COLOR YELLOW SPECIFIC GRAVITY >1.050 H [...] NEGATIVE NEGATIVE Jul 08, 2024 09:54 AM [facility] CBC Specimen Type: BLOOD Comment: Specimen received in Lab at: 0952 Ordering Provider: JUANCARLOS ECHOLS Report Released Date/Time: Jul 07, 2024 04:49 PM Reporting Lab: [facility] [address] Performing Lab: [facility] [address] WBC 17.5 H 4.0-11.0 RBC 4.88 4.60-6.20 HGB 14.9 g/dL 13.5-17.9 HCT 45.7 41.0-54.0 MCV 93.6 fL 80.0-100.0 MCH 30.5 pg 27.0-33.0 MCHC 32.6 g/dL 32.0-37.5 PLT 472 H 150-400 MPV 10.2 fL 9.1-13.0 RDW 13.7 11.5-14.5 Jul 08, 2024 09:54 AM [facility] PHOSPHORUS Specimen Type: PLASMA Comment: Specimen received in Lab at: 0952 Ordering Provider: JUANCARLOS ECHOLS Report Released Date/Time: Jul 07, 2024 04:49 PM Reporting Lab: [facility] [address] Performing Lab: [facility] [address] PHOSPHORUS 2.6 mg/dL 2.3-4.3 Jul 08, 2024 09:54 AM [facility] BASIC METABOLIC PANEL+MG Specimen Type: PLASMA Comment: Specimen received in Lab at: 0952 Ordering Provider: JUANCARLOS ECHOLS Report Released Date/Time: Jul 07, 2024 04:49 PM Reporting Lab: [facility] [address] Performing Lab: [facility] [address] CREATININE 0.9 mg/dL 0.7-1.2 UREA NITROGEN 26 mg/dL 8-26 GLUCOSE 128 mg/dL H 70-100 SODIUM 134 mmol/L L 136-145 POTASSIUM 3.4 mmol/L L 3.5-5.1 CHLORIDE 100 mmol/L 98-107 CO2 24 mmol/L 22-29 CALCIUM 9.8 mg/dL 8.4-10.2 MAGNESIUM 1.8 mg/dL 1.6-2.6 ANION GAP 10 mmol/L 5-15 .CREAT EGFR(CKD-EPI) >90 >60 Jul 07, 2024 02:00 PM [facility] C DIFF PANEL Specimen Type: FECES No comment entered. Ordering Provider: JEVON ZAZUETA Report Released Date/Time: Jul 07, 2024 12:26 PM Reporting Lab: [facility] [address] Performing Lab: [facility] [address] C DIFF TOX B GENE PCR NEGATIVE Negative Jul 07, 2024 07:41 AM [facility] PHOSPHORUS Specimen Type: PLASMA No comment entered. Ordering Provider: JEVON ZAZUETA Report Released Date/Time: Jul 06, 2024 03:44 PM Reporting Lab: [facility] [address] Performing Lab: [facility] [address] PHOSPHORUS 3.1 mg/dL 2.3-4.3 Jul 07, 2024 07:41 AM [facility] BASIC METABOLIC PANEL+MG Specimen Type: PLASMA No comment entered. Ordering Provider: JEVON ZAZUETA Report Released Date/Time: Jul 06, 2024 03:44 PM Reporting Lab: [facility] [address] Performing Lab: [facility] [address] CREATININE 0.9 mg/dL 0.7-1.2 UREA NITROGEN 20 mg/dL 8-26 GLUCOSE 157 mg/dL H 70-100 SODIUM 136 mmol/L 136-145 POTASSIUM 3.7 mmol/L 3.5-5.1 CHLORIDE 102 mmol/L 98-107 CO2 21 mmol/L L 22-29 CALCIUM 9.8 mg/dL 8.4-10.2 MAGNESIUM 1.9 mg/dL 1.6-2.6 ANION GAP 13 mmol/L 5-15 .CREAT EGFR(CKD-EPI) >90 >60 Jul 07, 2024 07:40 AM [facility] CBC Specimen Type: BLOOD No comment entered. Ordering Provider: JEVON ZAZUETA Report Released Date/Time: Jul 06, 2024 03:44 PM Reporting Lab: [facility] [address] Performing Lab: [facility] [address] WBC 21.2 H 4.0-11.0 RBC 5.09 4.60-6.20 HGB 15.9 g/dL 13.5-17.9 HCT 48.3 41.0-54.0 MCV 94.9 fL 80.0-100.0 MCH 31.2 pg 27.0-33.0 MCHC 32.9 g/dL 32.0-37.5 PLT 500 H 150-400 MPV 10.3 fL 9.1-13.0 RDW 13.6 11.5-14.5 Jul 06, 2024 07:21 AM [facility] CBC Specimen Type: BLOOD No comment entered. Ordering Provider: JEVON ZAZUETA Report Released Date/Time: Jul 05, 2024 01:22 PM Reporting Lab: [facility] [address] Performing Lab: [facility] [address] WBC 18.0 H 4.0-11.0 RBC 4.83 4.60-6.20 HGB 14.6 g/dL 13.5-17.9 HCT 45.5 41.0-54.0 MCV 94.2 fL 80.0-100.0 MCH 30.2 pg 27.0-33.0 MCHC 32.1 g/dL 32.0-37.5 PLT 368 150-400 MPV 10.4 fL 9.1-13.0 RDW 13.6 11.5-14.5 Jul 06, 2024 07:21 AM [facility] PHOSPHORUS Specimen Type: PLASMA No comment entered. Ordering Provider: JEVON ZAZUETA Report Released Date/Time: Jul 05, 2024 01:22 PM Reporting Lab: [facility] [address] Performing Lab: [facility] [address] PHOSPHORUS 3.6 mg/dL 2.3-4.3 Jul 06, 2024 07:21 AM [facility] BASIC METABOLIC PANEL+MG Specimen Type: PLASMA No comment entered. Ordering Provider: JEVON ZAZUETA Report Released Date/Time: Jul 05, 2024 01:22 PM Reporting Lab: [facility] [address] Performing Lab: [facility] [address] CREATININE 0.7 mg/dL 0.7-1.2 UREA NITROGEN 12 mg/dL 8-26 GLUCOSE 108 mg/dL H 70-100 SODIUM 138 mmol/L 136-145 POTASSIUM 3.4 mmol/L L 3.5-5.1 CHLORIDE 104 mmol/L 98-107 CO2 20 mmol/L L 22-29 CALCIUM 9.3 mg/dL 8.4-10.2 MAGNESIUM 1.9 mg/dL 1.6-2.6 ANION GAP 14 mmol/L 5-15 .CREAT EGFR(CKD-EPI) >90 >60 Jul 05, 2024 07:17 AM [facility] MAGNESIUM Specimen Type: PLASMA No comment entered. Ordering Provider: JUANCARLOS ECHOLS Report Released Date/Time: Jul 04, 2024 09:39 AM Reporting Lab: [facility] [address] Performing Lab: [facility] [address] MAGNESIUM 2.0 mg/dL 1.6-2.6 Jul 05, 2024 07:17 AM [facility] PHOSPHORUS Specimen Type: PLASMA No comment entered. Ordering Provider: JUANCARLOS ECHOLS S Report Released Date/Time: Jul 04, 2024 09:39 AM Reporting Lab: [facility] [address] Performing Lab: [facility] [address] PHOSPHORUS 2.0 mg/dL L 2.3-4.3 Jul 05, 2024 07:17 AM [facility] BASIC METABOLIC PANEL+MG Specimen Type: PLASMA No comment entered. Ordering Provider: JUANCARLOS ECHOLS S Report Released Date/Time: Jul 04, 2024 09:39 AM Reporting Lab: [facility] [address] Performing Lab: [facility] [address] CREATININE 0.7 mg/dL 0.7-1.2 UREA NITROGEN 12 mg/dL 8-26 GLUCOSE 84 mg/dL 70-100 SODIUM 135 mmol/L L 136-145 POTASSIUM 3.8 mmol/L 3.5-5.1 CHLORIDE 104 mmol/L 98-107 CO2 24 mmol/L 22-29 CALCIUM 9.3 mg/dL 8.4-10.2 MAGNESIUM 2.0 mg/dL 1.6-2.6 ANION GAP 7 mmol/L 5-15 .CREAT EGFR(CKD-EPI) >90 >60 Jul 05, 2024 07:16 AM [facility] CBC Specimen Type: BLOOD No comment entered. Ordering Provider: JUANCARLOS ECHOLS S Report Released Date/Time: Jul 04, 2024 09:39 AM Reporting Lab: [facility] [address] Performing Lab: [facility] [address] WBC 18.3 H 4.0-11.0 RBC 4.49 L 4.60-6.20 HGB 14.1 g/dL 13.5-17.9 HCT 43.4 41.0-54.0 MCV 96.7 fL 80.0-100.0 MCH 31.4 pg 27.0-33.0 MCHC 32.5 g/dL 32.0-37.5 PLT 317 150-400 MPV 10.0 fL 9.1-13.0 RDW 13.9 11.5-14.5 Jul 04, 2024 07:17 AM [facility] BASIC METABOLIC PANEL+MG Specimen Type: PLASMA No comment entered. Ordering Provider: GABINO CAMERON Report Released Date/Time: Jul 03, 2024 06:31 PM Reporting Lab: [facility] [address] Performing Lab: [facility] [address] CREATININE 0.7 mg/dL 0.7-1.2 UREA NITROGEN 16 mg/dL 8-26 GLUCOSE 129 mg/dL H 70-100 SODIUM 137 mmol/L 136-145 POTASSIUM 3.7 mmol/L 3.5-5.1 CHLORIDE 107 mmol/L 98-107 CO2 22 mmol/L 22-29 CALCIUM 9.0 mg/dL 8.4-10.2 MAGNESIUM 1.9 mg/dL 1.6-2.6 ANION GAP 8 mmol/L 5-15 .CREAT EGFR(CKD-EPI) >90 >60 Jul 04, 2024 07:17 AM [facility] PHOSPHORUS Specimen Type: PLASMA No comment entered. Ordering Provider: GABINO CAMERON Report Released Date/Time: Jul 03, 2024 06:31 PM Reporting Lab: [facility] [address] Performing Lab: [facility] [address] PHOSPHORUS 2.8 mg/dL 2.3-4.3 Jul 04, 2024 07:16 AM [facility] CBC Specimen Type: BLOOD No comment entered. Ordering Provider: GABINO CAMERON Report Released Date/Time: Jul 03, 2024 06:31 PM Reporting Lab: [facility] [address] Performing Lab: [facility] [address] WBC 20.6 H 4.0-11.0 RBC 4.63 4.60-6.20 HGB 14.2 g/dL 13.5-17.9 HCT 43.4 41.0-54.0 MCV 93.7 fL 80.0-100.0 MCH 30.7 pg 27.0-33.0 MCHC 32.7 g/dL 32.0-37.5 PLT 329 150-400 MPV 10.4 fL 9.1-13.0 RDW 13.8 11.5-14.5 Jul 04, 2024 07:16 AM [facility] CBC & DIFF Specimen Type: BLOOD Comment: Manual Differential Performed Ordering Provider: GABINO CAMERON Report Released Date/Time: Jul 03, 2024 06:31 PM Reporting Lab: [facility] [address] Performing Lab: [facility] [address] WBC 20.6 H 4.0-11.0 RBC 4.63 4.60-6.20 [...] MORPHOLOGY PRESENT Jul 04, 2024 07:15 AM [facility] BNP Specimen Type: PLASMA No comment entered. Ordering Provider: GABINO CAMERON Report Released Date/Time: Jul 03, 2024 06:31 PM Reporting Lab: [facility] [address] Performing Lab: [facility] [address] BNP 292 pg/mL H <99 Jul 03, 2024 10:32 PM [facility] FINGERSTICK GLUCOSE Specimen Type: BLOOD Comment: Save Result Nurse Notified Ordering Provider: KATELYNN PERSON Report Released Date/Time: Jul 03, 2024 10:50 PM Reporting Lab: [facility] [address] Performing Lab: [facility] [address] FINGERSTICK GLUCOSE 126 mg/dL H 70-100 Jul 03, 2024 05:33 PM [facility] FINGERSTICK GLUCOSE Specimen Type: BLOOD Comment: Save Result Nurse Notified Ordering Provider: KATELYNN PERSON Report Released Date/Time: Jul 03, 2024 05:46 PM Reporting Lab: [facility] [address] Performing Lab: [facility] [address] FINGERSTICK GLUCOSE 141 mg/dL H 70-100 Jul 03, 2024 02:31 PM [facility] POC ABG/ELECTROLYTES Specimen Type: ARTERIAL BLOOD Comment: FIO2 = 97% Patient Temp: 36.0 C Sample Type = ARTERIAL Ordering Provider: MAZIN ARREDONDO Report Released Date/Time: Jul 03, 2024 01:48 PM Reporting Lab: [facility] [address] Performing Lab: [facility] [address] POC PH 7.387 7.35-7.45 POC PCO2 34.4 [...] H 80.0-105.0 Jul 03, 2024 01:05 PM [facility] POC ABG/ELECTROLYTES Specimen Type: ARTERIAL BLOOD Comment: FIO2 = 53% Patient Temp: 36.2 C Sample Type = ARTERIAL Ordering Provider: MAZIN ARREDONDO Report Released Date/Time: Jul 03, 2024 01:48 PM Reporting Lab: [facility] [address] Performing Lab: [facility] [address] POC PH 7.280 L 7.35-7.45 POC PCO2 [...] mm[Hg] 80.0-105.0 Jul 03, 2024 06:15 AM [facility] URINALYSIS Specimen Type: URINE No comment entered. Ordering Provider: MARYBETH POWELL Report Released Date/Time: Jun 12, 2024 04:01 PM Reporting Lab: [facility] [address] Performing Lab: [facility] [address] URINE COLOR YELLOW SPECIFIC GRAVITY 1.031 1.003-1.03 [...] 250 NEGATIVE Jul 03, 2024 06:13 AM [facility] CBC Specimen Type: BLOOD No comment entered. Ordering Provider: MARYBETH POWELL Report Released Date/Time: Jun 12, 2024 03:59 PM Reporting Lab: [facility] [address] Performing Lab: [facility] [address] WBC 15.8 H 4.0-11.0 RBC 5.11 4.60-6.20 HGB 16.1 g/dL 13.5-17.9 HCT 49.1 41.0-54.0 MCV 96.1 fL 80.0-100.0 MCH 31.5 pg 27.0-33.0 MCHC 32.8 g/dL 32.0-37.5 PLT 357 150-400 MPV 9.8 fL 9.1-13.0 RDW 13.7 11.5-14.5 Jun 24, 2024 09:50 AM [facility] BASIC METABOLIC PANEL+MG Specimen Type: PLASMA Comment: Specimen received in Lab at: 48 Ordering Provider: JEVON ZAZUETA Report Released Date/Time: Jun 23, 2024 06:07 PM Reporting Lab: [facility] [address] Performing Lab: [facility] [address] CREATININE 0.8 mg/dL 0.7-1.2 UREA NITROGEN 13 mg/dL 8-26 GLUCOSE 135 mg/dL H 70-100 SODIUM 135 mmol/L L 136-145 POTASSIUM 3.6 mmol/L 3.5-5.1 CHLORIDE 103 mmol/L 98-107 CO2 24 mmol/L 22-29 CALCIUM 9.2 mg/dL 8.4-10.2 MAGNESIUM 1.9 mg/dL 1.6-2.6 ANION GAP 8 mmol/L 5-15 .CREAT EGFR(CKD-EPI) >90 >60 Jun 24, 2024 09:50 AM [facility] CBC Specimen Type: BLOOD Comment: Specimen received in Lab at: 48 Ordering Provider: JEVON ZAZUETA Report Released Date/Time: Jun 23, 2024 06:07 PM Reporting Lab: [facility] [address] Performing Lab: [facility] [address] WBC 15.5 H 4.0-11.0 RBC 4.93 4.60-6.20 HGB 15.2 g/dL 13.5-17.9 HCT 46.5 41.0-54.0 MCV 94.3 fL 80.0-100.0 MCH 30.8 pg 27.0-33.0 MCHC 32.7 g/dL 32.0-37.5 PLT 223 150-400 MPV 11.4 fL 9.1-13.0 RDW 13.9 11.5-14.5 Jun 23, 2024 07:52 AM [facility] COMPREHENSIVE METABOLIC PANEL+MG Specimen Type: PLASMA No comment entered. Ordering Provider: JEVON ZAZUETA Report Released Date/Time: Jun 22, 2024 05:51 PM Reporting Lab: [facility] [address] Performing Lab: [facility] [address] CREATININE 0.7 mg/dL 0.7-1.2 UREA NITROGEN 16 [...] >90 >60 Jun 23, 2024 07:52 AM [facility] CBC & DIFF Specimen Type: BLOOD Comment: Automated Differential Performed Ordering Provider: JEVON ZAZUETA Report Released Date/Time: Jun 22, 2024 05:51 PM Reporting Lab: [facility] [address] Performing Lab: [facility] [address] WBC 14.9 H 4.0-11.0 RBC 5.09 4.60-6.20 [...] 0.1 0.0-0.1 Jun 22, 2024 06:10 PM [facility] CBC Specimen Type: BLOOD No comment entered. Ordering Provider: JEVON ZAZUETA Report Released Date/Time: Jun 22, 2024 05:51 PM Reporting Lab: [facility] [address] Performing Lab: [facility] [address] WBC 16.9 H 4.0-11.0 RBC 5.28 4.60-6.20 HGB 16.9 g/dL 13.5-17.9 HCT 50.4 41.0-54.0 MCV 95.5 fL 80.0-100.0 MCH 32.0 pg 27.0-33.0 MCHC 33.5 g/dL 32.0-37.5 PLT 223 150-400 MPV 10.9 fL 9.1-13.0 RDW 14.0 11.5-14.5 Jun 22, 2024 06:10 PM [facility] COMPREHENSIVE METABOLIC PANEL+MG Specimen Type: PLASMA No comment entered. Ordering Provider: JEVON ZAZUETA Report Released Date/Time: Jun 22, 2024 05:51 PM Reporting Lab: [facility] [address] Performing Lab: [facility] [address] CREATININE 0.7 mg/dL 0.7-1.2 UREA NITROGEN 17 [...] >90 >60 Jun 21, 2024 06:48 PM [facility] URINALYSIS Specimen Type: URINE No comment entered. Ordering Provider: DELIA MARTINEZ Report Released Date/Time: Jun 21, 2024 05:45 PM Reporting Lab: [facility] [address] Performing Lab: [facility] [address] URINE COLOR YELLOW SPECIFIC GRAVITY 1.041 H [...] 500 NEGATIVE Jun 21, 2024 05:34 PM [facility] POC CREATININE Specimen Type: BLOOD No comment entered. Ordering Provider: DELIA MARTINEZ Report Released Date/Time: Jun 21, 2024 06:07 PM Reporting Lab: [facility] [address] Performing Lab: [facility] [address] POC CREATININE 1.1 mg/dL 0.6-1.3 Jun 21, 2024 05:30 PM [facility] POC ABG/LACTATE Specimen Type: VENOUS BLOOD No comment entered. Ordering Provider: DELIA MARTINEZ Report Released Date/Time: Jun 21, 2024 06:07 PM Reporting Lab: [facility] [address] Performing Lab: [facility] [address] POC PH 7.470 H 7.31-7.41 POC PCO2 31.2 mm[Hg] L 41.00-51 .0 0 POC PO2 46 mm[Hg] H 35.0-40.0 POC TCO2 24 mmol/L 24.0-29.0 POC HCO3 22.7 mmol/L L 23.0-28.0 POC BE ECT -1 mmol/L POC SO2 85 H 70-75 POC LACTATE 1.85 mmol/L 0.90-1.70 Jun 21, 2024 05:24 PM [facility] PROTHROMBIN TIME/INR Specimen Type: PLASMA No comment entered. Ordering Provider: DELIA MARTINEZ Report Released Date/Time: Jun 21, 2024 05:30 PM Reporting Lab: [facility] [address] Performing Lab: [facility] [address] .INR 1.2 H 0.8-1.1 .PT 13.9 s H 9.4-12.5 Jun 21, 2024 05:24 PM [facility] LIPASE Specimen Type: PLASMA No comment entered. Ordering Provider: DELIA MARTINEZ Report Released Date/Time: Jun 21, 2024 05:30 PM Reporting Lab: [facility] [address] Performing Lab: [facility] [address] LIPASE 32 U/L <60 Jun 21, 2024 05:24 PM [facility] EXTRA GOLD GEL TUBE Specimen Type: SERUM No comment entered. Ordering Provider: DELIA MARTINEZ Report Released Date/Time: Jun 21, 2024 05:41 PM Reporting Lab: [facility] [phone] Performing Lab: [facility] [address] EXTRA GOLD GEL TUBE RECEIVED Jun 21, 2024 05:24 PM [facility] COMPREHENSIVE METABOLIC PANEL+MG Specimen Type: PLASMA No comment entered. Ordering Provider: DELIA MARTINEZ Report Released Date/Time: Jun 21, 2024 05:30 PM Reporting Lab: [facility] [address] Performing Lab: [facility] [address] CREATININE 0.9 mg/dL 0.7-1.2 UREA NITROGEN 29 [...] mg/dL <0.5 Jun 21, 2024 05:24 PM [facility] CBC & DIFF Specimen Type: BLOOD Comment: Manual Differential Performed Ordering Provider: DELIA MARTINEZ Report Released Date/Time: Jun 21, 2024 05:30 PM Reporting Lab: [facility] [phone] Performing Lab: [facility] [address] WBC 21.3 H 4.0-11.0 RBC 5.48 4.60-6.20 [...] MORPHOLOGY PRESENT Jun 08, 2024 10:59 AM [facility] PROTHROMBIN TIME/INR Specimen Type: PLASMA No comment entered. Ordering Provider: MARYBETH POWELL Report Released Date/Time: May 28, 2024 09:02 AM Reporting Lab: [facility] [address] Performing Lab: [facility] [address] .INR 1.0 0.8-1.1 .PT 11.8 s 9.4-12.5 Jun 08, 2024 10:59 AM [facility] CBC Specimen Type: BLOOD No comment entered. Ordering Provider: MARYBETH POWELL Report Released Date/Time: May 28, 2024 09:02 AM Reporting Lab: [facility] [address] Performing Lab: [facility] [address] WBC 16.1 H 4.0-11.0 RBC 5.02 4.60-6.20 HGB 16.0 g/dL 13.5-17.9 HCT 47.1 41.0-54.0 MCV 93.8 fL 80.0-100.0 MCH 31.9 pg 27.0-33.0 MCHC 34.0 g/dL 32.0-37.5 PLT 228 150-400 MPV 10.3 fL 9.1-13.0 RDW 14.6 H 11.5-14.5 Jun 08, 2024 10:59 AM [facility] HEMOGLOBIN A1C Specimen Type: BLOOD [...] 09:02 AM Reporting Lab: [facility] [phone] Performing Lab: [facility] [address] HEMOGLOBIN A1C 4.9 4.0-6.0 Jun 08, 2024 10:59 AM [facility] BASIC METABOLIC PANEL+MG Specimen Type: PLASMA No comment entered. Ordering Provider: MARYBETH POWELL Report Released Date/Time: May 28, 2024 09:02 AM Reporting Lab: [facility] [address] Performing Lab: [facility] [address] CREATININE 0.9 mg/dL 0.7-1.2 UREA NITROGEN 15 [...] Height Weight Body Mass Index Source Jun 21, 2024 11:54 PM 7 [facility] Jun 21, 2024 11:29 PM 7 [facility] Jun 21, 2024 11:02 PM 97.9 75 130/75 17 95 7 [facility] Jun 21, 2024 04:51 PM 98.2 100 162/97 16 97 10 [facility] Social History: Smoking [...] 15, 2024 08:30 AM [place]-[facility] FORMER USER [facility] Tobacco Use History This section includes a history of the smoking, or tobacco-related health factors, that were collected on or before the date of the Encounter. The data comes from the [place] facility where the Encounter took place. Date/Time Smoking Status/Tobacco Use Comment F acility May 15, 2024 08:30 AM [place]-[facility] QUIT 15 YRS OR MORE [facility] May 06, 2023 11:30 AM [place]-TOBACCO FORMER USER [facility] May 06, 2023 11:30 AM [...] 2 VIEWS PA AND LAT: FLACA WEAVER [id number] -[id number] M Exm Date: JUL 08, 2024@10:09 Req Phys: KATELYNN PERSON Pat Loc: 07-08-2024@11:49 Img Loc: MAIN X-RAY Service: [facility] [address] (Case 24 COMPLETE) CHEST 2 VIEWS PA AND LAT (RAD Detailed) CPT:08754 Reason for Study: Uptrending WBC, POD 5 [...] 08, 2024 Date Verified: JUL 08, 2024 [employer] E-Sig: Report: CHEST 2 VIEWS PA AND LAT HISTORY: Uptrending WBC, POD 5 COMPARISON: CT chest 11/12/2022 TECHNIQUE: Frontal and lateral views of the chest, submitted to the [facility] National Teleradiology Program (NTP) for interpretation. FINDINGS: Lungs: Clear. No focal consolidation. No pulmonary edema. Pleura: No pleural effusion or pneumothorax. Mediastinum: Normal size and contour. Bones: Unremarkable. Impression: No acute cardiopulmonary disease. READING PHYSICIAN: Sarbjit Vaughn M.D. -[phone] 07/08/2024 12:46 EST [facility] National Teleradiology Program [phone] (For Medical Practitioner Use Only) Attention Patients / Veterans: If you have questions or concerns about these test results, please contact your ordering provider or primary care team. Primary Interpreting Staff: RADIOLOGY,OUTSIDE SERVICE, Staff Physician / RADIOLOGY,OUTSIDE SERVICE [facility] Jul 08, 2024 10:[address] (AP) ABDOMEN/PELVIS W CONTRAST: FLACA WEAVER [id number] -1950 M Exm Date: JUL 08, 2024@10:00 Req Phys: KATELYNN PERSON Pat Loc: 2KG/07-08-2024@12:07 [facility]: [place]ING Service: [place] [address] (Case [id number] COMPLETE) CT (AP) ABDOMEN/PELVIS W CONTRAST(CT Detailed) CPT:47874 Contrast Media : Non-ionic Iodinated Reason for [...] PLASMA .CREAT EGFR(CKD-E >90 Ref: >=60 Allergies: ([place] only) TERAZOSIN (Mar 13, 2015) Report Status: Verified Date Reported: JUL 08, 2024 Date Verified: JUL 08, 2024 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 Axial, sagittal and coronal reformatted images. The study was performed at the local [facility] facility and images were sent to the [facility] National Teleradiology [facility] (NTP) for interpretation. Number [...] as noted above READING PHYSICIAN: Celestino Blanc -[phone] 07/08/2024 13:04 [facility] National Teleradiology Program [phone] (For Medical Practitioner Use Only) Attention Patients / Veterans: If you have questions or concerns about these test results, please contact your ordering provider or primary care team. Primary Interpreting Staff: RADIOLOGY,OUTSIDE SERVICE, Staff Physician / RADIOLOGY,OUTSIDE SERVICE [facility] Jun 22, 2024 11:49 AM ABSCESS DRAIN PLACEMENT PERITONEAL (P): FLACA WEAVER [id number] -1950 M Exm Date: JUN 22, 2024@11:49 Req Phys: ANGELA HOLDEN Loc: 2K06-22-2024@17:14 Img Loc: INTERVENTIONAL RADIOLOGY Service: [place] [address] (Case [id number] COMPLETE) IR PERITONEAL/RETROPERITONEAL PER(ANI Detailed) CPT:04292 Reason for Study: diverticulitis with abscess (Case 3570 COMPLETE) IR MOD SEDATION 10-22 MIN (ANI Detailed) CPT:88163 Clinical History: IS NOT under investigation for COVID-19 or is COVID-19 negative 73 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 please place abscess drain. Contact number for responsible provider who can be reached for any questions or notifications of critical findings: [phone] n/a LAST CREATININE 0.9 (06/21/24) Report Status: Verified Date Reported: JUN 22, 2024 Date Verified: JUN 22, 2024 Carton Packaging Machine Operator E-Sig:/ES/LISA PENDLETON MD Report: PROCEDURES: [...] A pre-procedural Time-Out was performed per [facility] policy. The patient was placed in the supine position on the CT table. Preprocedural scan performed. The suprapubic region/lower abdominal wall was sterilely prepped and draped in the usual fashion.1% lidocaine without epinephrine was used for local anesthesia. Using real-time CT fluoroscopy, a 5 [place] Paperless Worldesis catheter was advanced into the collection in the left pelvis. A wire was coiled in the collection. The tract into the collection was dilated to accommodate the 12 [place]ian locking pigtail drainage catheter. There was return [...] Primary Interpreting Staff: LISA PENDLETON MD, RADIOLOGIST ([employer]on Packaging Machine Operator) /JRT LISA PENDLETON [facility] Jun 22, 2024 11:[address] NEEDLE PLACEMENT (P): FLACA WEAVER [id number] -1950 M Exm Date: JUN 22, 2024@11:48 Req Phys: ANGELA HOLDEN Loc: [facility]/06-22-2024@17:14 Img Loc: CT IMAGING Service: [place] [address] (Case [id number] COMPLETE) CT SCAN FOR NEEDLE PLACEMENT (CT Detailed) CPT:40490 Reason for Study: l pelvic abscess drain Clinical History: Report Status: Verified Date Reported: JUN 22, 2024 Date Verified: JUN 22, 2024 [employer]on Packaging Machine Operator E-Sig:/ES/LISA PENDLETON MD Report: PROCEDURES: [...] A pre-procedural Time-Out was performed per [facility] policy. The patient was placed in the supine position on the CT table. Preprocedural scan performed. The suprapubic region/lower abdominal wall was sterilely prepped and draped in the usual fashion.1% lidocaine without epinephrine was used for local anesthesia. Using real-time CT fluoroscopy, a 5 [place] Paperless Worldesis catheter was advanced into the collection in the left pelvis. A wire was coiled in the collection. The tract into the collection was dilated to accommodate the 12 [place]ian locking pigtail drainage catheter. There was return [...] Primary Interpreting Staff: LISA PENDLETON MD, RADIOLOGIST (Carton Packaging Machine Operator) /JRT LISA PENDLETON [facility] Jun 21, 2024 06:[address] (AP) ABDOMEN/PELVIS (P): FLACA WEAVER [id number] -1950 M Exm Date: JUN 21, 2024@18:09 Req Phys: DELIA MARTINEZ Loc: [facility] EM[facility]Y DEPT WALK-IN (Re Img Loc: CT IMAGING Service: [place] [address] (Case [id number] COMPLETE) CT (AP) ABDOMEN/PELVIS W CONTRAST(CT Detailed) CPT:82393 Contrast Media : Non-ionic Iodinated Reason for [...] PLASMA .CREAT EGFR(CKD-E >90 Ref: >=60 Allergies: ([place] only) TERAZOSIN (Mar 13, 2015) Defer to [...] 21, 2024 Date Verified: JUN 21, 2024 [employer] Packaging Machine Operator E-Sig:/ALEXI/CARLOS A CUNNINGHAM DO Report: [...] Interpreting Staff: CARLOS A CUNNINGHAM DO, RADIOLOGIST (Carton Packaging Machine Operator) /CARLOS A ROWELL [facility] May 25, 2024 09:00 AM IR FISTULOGRAM OR SINOGRAM : FLACA WEAVER [id number] -1950 M Exm Date: MAY 25, 2024@09:00 Req Phys: AMINTA PRUITT Loc: [facility] XRAY INTERVENTIONAL RADIO Img Loc: INTERVENTIONAL RADIOLOGY Service: [place] [address] (Case [id number] COMPLETE) IR FISTULOGRAM OR SINOGRAM (ANI Detailed) CPT:94596 Contrast Media : unspecified contrast media Reason [...] 25, 2024 Date Verified: MAY 25, 2024 [employer]on Packaging Machine Operator E-Sig:/ES/DAVID BURNS MD Report: PROCEDURES [...] Primary Interpreting Staff: DAVID BURNS MD, RADIOLOGIST (Carton Packaging Machine Operator) /CSS DAVID BURNS [facility] May 25, 2024 08:[address] (AP) ABDOMEN/PELVIS (P): FLACA WEAVER [id number] -1950 M Exm Date: MAY 25, 2024@08:23 Req Phys: DAVID BURNS Pat Loc: MSP XRAY INTERVENTIONAL RADIO Img Loc: CT IMAGING Service: [place] [address] (Case [id number] COMPLETE) CT (AP) ABDOMEN/PELVIS W/O CONTRA(CT Detailed) CPT:07221 Reason for Study: assess abscess and possible [...] PLASMA .CREAT EGFR(CKD-E >90 Ref: >=60 Allergies: ([place] only) TERAZOSIN (Mar 13, 2015) Report Status: Verified Date Reported: MAY 25, 2024 Date Verified: MAY 25, 2024 [employer]on Packaging Machine Operator E-Sig:/ES/JESSENIA GOODMAN MD Report: EXAM: [...] pelvis 04/23/2024.; CT abdomen pelvis 05/05/2020 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 [id number] - - - - - - - [...] - PATHOLOGY REPORT Accession No. [id number] - - - - - - - [...] Second circumferential surgical margin, en face; E-F: Banjo Repair Person diverticula; G: Banjo Repair Person section of mesentery; H: Random outbound sales representative section of additional adipose tissue [...] One colonic tissue ring, bisected transversely. [facility]. [facility]: Microscopic examination performed. DIAGNOSIS: 1. Colon, sigmoid, sigmoidectomy-- - Diverticulosis with perforation and focal abscess formation 2. Colon, anastomotic rings, excision-- - Viable colonic mucosa without diagnostic abnormality /es/ EDUARDO PALOMARES MD STAFF PATHOLOGIST Signed Jul 06, 2024@10:40 Performing Laboratory: Surgical Pathology Report Performed By: [facility] [CLIA# [id number]] [place] [address] $FTR - - - - - - - - - - - - - - - - - - - - - - - - - - - - - - - - - - - - - - - - (End of report) EDUARDO PALOMARES MD [facility] Date Jul 06, 2024 - - - - - - - - - - - - - - - - - - - - - - - - - - - - - - - - - - - - - - - - FLACA WEAVER STANDARD FORM 515 ID:[id number] SEX:M :1950 AGE: 73 LOC:55869 ADM:Jun DX:DIVERTICULITIS PCP: Jatinder Cabrera /alexi/ EDUARDO PALOMARES MD STAFF PATHOLOGIST Signed: 07/06/2024 10:40 EDUARDO PALOMARES [facility] Jun 22, 2024 01:15 PM LR MICROBIOLOGY RE PORT: Reporting Lab: [facility] [CLIA# [id number]] [place] [address] Accession [UID]: [id number] [[id number]] Received: Jun 22, 2024@13:38 Collection sample: FLUID Collection date: Jun 22, 2024 13:15 Provider: ANGELA HOLDEN Comment on specimen: LLQ ABSCESS, RECEIVED IN ANAEROBIC TRANSPORT VIAL Test(s) ordered: GRAM STAIN.................... completed: Jun 22, 2024 15:03 CULTURE & SUSCEPTIBILITY...... completed: Jun 25, 2024 * BACTERIOLOGY FINAL REPORT => Jun 25, 2024 10:56 TECH CODE: [id number] GRAM STAIN: DIRECT SMEAR of specimen before [...] -=--=--=--=--=--=--=-- Performing Laboratory: Bacteriology Report Performed By: [facility] [CLIA# [id number]] [place] [address] [facility] Jun 22, 2024 01:15 PM LR MICROBIOLOGY RE PORT: Reporting Lab: [facility] [CLIA# [id number]] [place] [address] Accession [UID]: [id number] [[id number]] Received: Jun 22, 2024@13:38 Collection sample: FLUID Collection date: Jun 22, 2024 13:15 Provider: ANGELA HOLDEN Comment on specimen: LLQ ABSCESS, RECEIVED IN ANAEROBIC TRANSPORT VIAL Test(s) ordered: ANAEROBIC CULTURE............. completed: Jun 28, 2024 * BACTERIOLOGY FINAL REPORT => Jun 28, 2024 10:08 [facility] CODE: [id number] CULTURE RESULTS: HEAVY GROWTH MIXED ANAEROBES Comment: including the followin+ Bacteroides fragilis 4+ Bacteroides vulgatus 4+ Clostridium innocuum Beta-lactamase negative 4+ Bacteroides caccae 4+ Parvimonas micra 4+ Bacteroides uniformis 4+ Gemella morbillorum 4+ anaerobic small, Gram Positive Rods 4+ Bacteroides thetaiotaomicron Standard workup is now complete. Bacteriology Remark(s): THIS REPORT IS FINAL =--=--=--=--=--=--=--=--=--= --=--=--=--=--=--=--=--=--=- -=--=--=--=--=--=--=-- Performing Laboratory: Bacteriology Report Performed By: [facility] [CLIA# [id number]] [place] [address] [facility] Jun 21, 2024 06:12 PM LR MICROBIOLOGY RE PORT: Reporting Lab: [facility] [IA# [id number]] [place] [address] Accession [UID]: [id number] [[id number]] Received: Jun 21, 2024@18:12 Collection sample: BLOOD [...] -=--=--=--=--=--=--=-- Performing Laboratory: Bacteriology Report Performed By: [facility] [IA# [id number]] [place] [address] [facility] Jun 21, 2024 06:11 PM LR MICROBIOLOGY RE PORT: Reporting Lab: [facility] [IA# [id number]] [place] [address] Accession [UID]: [id number] [[id number]] Received: Jun 21, 2024@18:11 Collection sample: BLOOD [...] -=--=--=--=--=--=--=-- Performing Laboratory: Bacteriology Report Performed By: [facility] [CLIA# [id number]] [place] [address] [facility] Jun 08, 2024 11:00 AM LR MICROBIOLOGY RE PORT: Reporting Lab: [facility] [CLIA# [id number]] [place] [address] Accession [UID]: [id number] [[id number]] Received: Jun 08, 2024@11:00 Collection sample: URINE Collection date: Jun 08, 2024 11:00 Provider: MARYBETH POWELL Comment on specimen: urine Test(s) ordered: CULTURE & SUSCEPTIBILITY...... completed: Jun 09, 2024 * BACTERIOLOGY FINAL REPORT => Jun 09, 2024 19:12 TECH CODE: [id number] CULTURE RESULTS: ESCHERICHIA COLI - Quantity: >100,000 [...] -=--=--=--=--=--=--=-- Performing Laboratory: Bacteriology Report Performed By: [facility] [CLIA# [id number]] [place] [address] [facility] Encounter Notes: All associated encounter notes This section contains the clinical notes associated to the Encounter. Date/Time Encounter Note(s) Provider Source Jun 21, 2024 03:48 PM RN PROGRESS NOTE: LOCAL TITLE: CCC: CLINICAL TRIAGE STANDARD TITLE: RN PROGRESS NOTE DATE OF NOTE: JUN 21, 2024@15:48:59 ENTRY DATE: JUN 21, 2024@15:48:59 AUTHOR: AL CANELA COSIGNER: URGENCY: STATUS: COMPLETED Patient Demographics Patient Name: FLACA WEAVER Patient Primary [address]: [address] [place] [address] Patient Primary Phone: [phone] Patient : 1950 Patient Age: 73 Caller/Recipient Relation to Patient: Self Emergency Contact: NIMO PIÑA Triage Summary Conducted triage/discussed symptoms Pain Score: 10 (Severe Pain) Utilized the Triage Tool: Yes Chief Complaint: Abdominal Pain System WHEN: Now, 911 Nurse's Recommendation / WHEN: Now System WHERE: Emergency department Nurse's Recommendation [facility] Patient Disposition Patient/Caregiver agrees to plan of care: Yes Patient WHERE[facility] Patient WHEN: Now Nursing Plan and Disposition Referred patient to higher level of care Instructed to go to Emergency Room (ER) Nurse Summary Nurse Summary: PATIENT CONCERN/DURATION/ONSET: [place] c/o 10/10 abdominal pain for the past 3 days. States he is unable to pass gas or stools and is having hot and cold flashes. States he is unable to touch his abdomen due to pain. Denies vomiting or chest pain. WHAT HAS PATIENT TRIED TO TREAT THE SYMPTOMS: Sit in bath tub, symptom. HISTORY/PREVIOUS TREATMENT: Pending surgery for diverticulitis. WHAT IS PATIENT GOAL FOR THE CALL: Inform ER of his arrival Was Virtual Care Visit considered (TELE or VVC)? No. POND WORKER DISPOSITION: Triage nurse recommendation is evaluation in ER now due to severity of symptoms. [place] agrees to report to [facility] ED for evaluation. [place] frustrated with triage process, he would like to inform of his intent to go to [facility] ER to avoid waiting in pain. Advised that he would need to be triaged upon arrival, he said 'okay kid' and ended call. Unable to provide 911 warning signs prior to call termination. This note was created by a 3 [facility] RN. Please do not alert this nurse by adding as a signer for future communications. Alerts are not monitored by this user, please reach out to [facility] Leadership instead if indicated. Clinical Contact Center Codes Clinic/Location: [address] PHONE [facility] RN Decision Support System Output: Triage Complete Triage Date: 06/21/2024, 03:45 PM Triage Note: Decision Support Tool Used: [employer] Phone Triage Li, 21 Jun 2024 20:36:16 +0000 [facility] Demographics 73 y/o Male Results CC: Abdominal Pain Software suggested: Now, 911 Software suggested follow-up location: Emergency department Values and Measures Duration of CC: 3 Days Positive Responses HPI: abdominal pain, severe HPI: weakness, with diaphoresis Negative Responses Denies: HPI: chest pain Denies: PMH: abdominal aortic aneurysm IMPORTANT: This note was created by [facility] Clinical Contact Center staff. Please do not alert the staff member by adding them as a signer for future communications. Alerts are not monitored by this user. /alexi/ AL CANELA RN VISN 23 [facility] Signed: 06/21/2024 15:49 AL CANELA [facility]
--- OUTSIDE RECORDS SUMMARY | 2024-07-16 07:29 | XMS_ITS | Encounter Summary ---
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 Date/Time Primary/Secondary Diagnosis Diagnosis Name Provider Source Jun 21, 2024 10:42 PM PRIMARY Dvtrcli of lg int w perforation and abscess w/o bleeding DELIA MARTINEZ [facility] Plan of Treatment: Future Appointments (+ 6 months) and Future Tests (+/- 45 days) The Plan of Treatment section includes future care activities for the patient from [facility] [place] [facility] This section includes future appointments [...] 27, 2024 07:00 AM AMBULATORY - NONE [facility] Jun 27, 2024 07:30 AM AMBULATORY - MEDICINE [facility] Jun 27, 2024 08:00 AM AMBULATORY - MEDICINE [facility] Jul 03, 2024 05:55 AM AMBULATORY - NONE [facility] Jul 13, 2024 08:15 AM AMBULATORY NONE [facility] Active, Pending, and Scheduled Orders [...] & SCREEN - LAB BLOOD SP [facility] Jun 08, 2024 09:57 AM Laboratory - Chemi stry Order URINALYSIS URINE ONCE [facility] Jun 12, 2024 12:00 AM Laboratory - Chemi stry Order BNP PLASMA SP ONCE [facility] Jun 21, 2024 05:45 PM Laboratory - Blood Bank Order TYPE & SCREEN - LAB BLOOD [facility] Jul 03, 2024 12:00 AM Laboratory - Blood Bank Order TYPE & SCREEN - LAB BLOOD [facility] Jul 16, 2024 12:00 AM Laboratory - Chemi stry Order CBC BLOOD SP ONCE [facility] Jul 17, 2024 12:00 AM Laboratory - Chemi stry Order BASIC METABOLIC PANEL+MG PLASMA SP ONCE [facility] Lab Results: +/- [...] Comment Jul 10, 2024 07:16 AM [facility] PHOSPHORUS Specimen Type: PLASMA No comment entered. Ordering Provider: JUANCARLOS ECHOLS S Report Released Date/Time: Jul 09, 2024 12:23 PM Reporting Lab: [facility] [address] Performing Lab: [facility] [address] PHOSPHORUS 3.0 mg/dL 2.3-4.3 Jul 10, 2024 07:16 AM [facility] BASIC METABOLIC PANEL+MG Specimen Type: PLASMA No comment entered. Ordering Provider: JUANCARLOS ECHOLS S Report Released Date/Time: Jul 09, 2024 12:23 PM Reporting Lab: [facility] [address] Performing Lab: [facility] [address] CREATININE 0.7 mg/dL 0.7-1.2 UREA NITROGEN 27 mg/dL H 8-26 GLUCOSE 104 mg/dL H 70-100 SODIUM 133 mmol/L L 136-145 POTASSIUM 4.3 mmol/L 3.5-5.1 CHLORIDE 102 mmol/L 98-107 CO2 19 mmol/L L 22-29 CALCIUM 10.1 mg/dL 8.4-10.2 MAGNESIUM 1.9 mg/dL 1.6-2.6 ANION GAP 12 mmol/L 5-15 .CREAT EGFR(CKD-EPI) >90 >60 Jul 10, 2024 07:15 AM [facility] CBC Specimen Type: BLOOD No comment entered. Ordering Provider: JUANCARLOS ECHOLS S Report Released Date/Time: Jul 09, 2024 12:23 PM Reporting Lab: [facility] [address] Performing Lab: [facility] [address] WBC 18.8 H 4.0-11.0 RBC 5.08 4.60-6.20 HGB 15.9 g/dL 13.5-17.9 HCT 46.8 41.0-54.0 MCV 92.1 fL 80.0-100.0 MCH 31.3 pg 27.0-33.0 MCHC 34.0 g/dL 32.0-37.5 PLT 479 H 150-400 MPV 10.2 fL 9.1-13.0 RDW 13.7 11.5-14.5 Jul 09, 2024 07:08 AM [facility] CBC Specimen Type: BLOOD No comment entered. Ordering Provider: QUYNH WEISS Report Released Date/Time: Jul 08, 2024 06:18 PM Reporting Lab: [facility] [address] Performing Lab: [facility] [address] WBC 15.3 H 4.0-11.0 RBC 4.91 4.60-6.20 HGB 15.1 g/dL 13.5-17.9 HCT 45.7 41.0-54.0 MCV 93.1 fL 80.0-100.0 MCH 30.8 pg 27.0-33.0 MCHC 33.0 g/dL 32.0-37.5 PLT 443 H 150-400 MPV 10.0 fL 9.1-13.0 RDW 13.5 11.5-14.5 Jul 08, 2024 10:50 AM [facility] URINALYSIS Specimen Type: URINE No comment entered. Ordering Provider: KATELYNN PERSON Report Released Date/Time: Jul 08, 2024 08:41 AM Reporting Lab: [facility] [address] Performing Lab: [facility] [address] URINE COLOR YELLOW SPECIFIC GRAVITY >1.050 H [...] NEGATIVE Jul 08, 2024 09:54 AM [facility] CBC Specimen Type: BLOOD Comment: Specimen received in Lab at: [id number] Ordering Provider: JUANCARLOS ECHOLS Report Released Date/Time: Jul 07, 2024 04:49 PM Reporting Lab: [facility] [address] Performing Lab: [facility] [address] WBC 17.5 H 4.0-11.0 RBC 4.88 4.60-6.20 HGB 14.9 g/dL 13.5-17.9 HCT 45.7 41.0-54.0 MCV 93.6 fL 80.0-100.0 MCH 30.5 pg 27.0-33.0 MCHC 32.6 g/dL 32.0-37.5 PLT 472 H 150-400 MPV 10.2 fL 9.1-13.0 RDW 13.7 11.5-14.5 Jul 08, 2024 09:54 AM [facility] PHOSPHORUS Specimen Type: PLASMA Comment: Specimen received in Lab at: 0952 Ordering Provider: JUANCARLOS ECHOLS Report Released Date/Time: Jul 07, 2024 04:49 PM Reporting Lab: [facility] [address] Performing Lab: [facility] [address] PHOSPHORUS 2.6 mg/dL 2.3-4.3 Jul 08, 2024 09:54 AM [facility] BASIC METABOLIC PANEL+MG Specimen Type: PLASMA Comment: Specimen received in Lab at: 0952 Ordering Provider: JUANCARLOS ECHOLS S Report Released Date/Time: Jul 07, 2024 04:49 PM Reporting Lab: [facility] [address] Performing Lab: [facility] [address] CREATININE 0.9 mg/dL 0.7-1.2 UREA NITROGEN 26 mg/dL 8-26 GLUCOSE 128 mg/dL H 70-100 SODIUM 134 mmol/L L 136-145 POTASSIUM 3.4 mmol/L L 3.5-5.1 CHLORIDE 100 mmol/L 98-107 CO2 24 mmol/L 22-29 CALCIUM 9.8 mg/dL 8.4-10.2 MAGNESIUM 1.8 mg/dL 1.6-2.6 ANION GAP 10 mmol/L 5-15 .CREAT EGFR(CKD-EPI) >90 >60 Jul 07, 2024 02:00 PM [facility] C DIFF PANEL Specimen Type: FECES No comment entered. Ordering Provider: JEVON ZAZUETA Report Released Date/Time: Jul 07, 2024 12:26 PM Reporting Lab: [facility] [address] Performing Lab: [facility] [address] C DIFF TOX B GENE PCR NEGATIVE Negative Jul 07, 2024 07:41 AM [facility] PHOSPHORUS Specimen Type: PLASMA No comment entered. Ordering Provider: JEVON ZAZUETA Report Released Date/Time: Jul 06, 2024 03:44 PM Reporting Lab: [facility] [address] Performing Lab: [facility] [address] PHOSPHORUS 3.1 mg/dL 2.3-4.3 Jul 07, 2024 07:41 AM [facility] BASIC METABOLIC PANEL+MG Specimen Type: PLASMA No comment entered. Ordering Provider: JEVON ZAZUETA Report Released Date/Time: Jul 06, 2024 03:44 PM Reporting Lab: [facility] [address] Performing Lab: [facility] [address] CREATININE 0.9 mg/dL 0.7-1.2 UREA NITROGEN 20 mg/dL 8-26 GLUCOSE 157 mg/dL H 70-100 SODIUM 136 mmol/L 136-145 POTASSIUM 3.7 mmol/L 3.5-5.1 CHLORIDE 102 mmol/L 98-107 CO2 21 mmol/L L 22-29 CALCIUM 9.8 mg/dL 8.4-10.2 MAGNESIUM 1.9 mg/dL 1.6-2.6 ANION GAP 13 mmol/L 5-15 .CREAT EGFR(CKD-EPI) >90 >60 Jul 07, 2024 07:40 AM [facility] CBC Specimen Type: BLOOD No comment entered. Ordering Provider: JEVON ZAZUETA Report Released Date/Time: Jul 06, 2024 03:44 PM Reporting Lab: [facility] [address] Performing Lab: [facility] [address] WBC 21.2 H 4.0-11.0 RBC 5.09 4.60-6.20 HGB 15.9 g/dL 13.5-17.9 HCT 48.3 41.0-54.0 MCV 94.9 fL 80.0-100.0 MCH 31.2 pg 27.0-33.0 MCHC 32.9 g/dL 32.0-37.5 PLT 500 H 150-400 MPV 10.3 fL 9.1-13.0 RDW 13.6 11.5-14.5 Jul 06, 2024 07:21 AM [facility] CBC Specimen Type: BLOOD No comment entered. Ordering Provider: JEVON ZAZUETA Report Released Date/Time: Jul 05, 2024 01:22 PM Reporting Lab: [facility] [address] Performing Lab: [facility] [address] WBC 18.0 H 4.0-11.0 RBC 4.83 4.60-6.20 HGB 14.6 g/dL 13.5-17.9 HCT 45.5 41.0-54.0 MCV 94.2 fL 80.0-100.0 MCH 30.2 pg 27.0-33.0 MCHC 32.1 g/dL 32.0-37.5 PLT 368 150-400 MPV 10.4 fL 9.1-13.0 RDW 13.6 11.5-14.5 Jul 06, 2024 07:21 AM [facility] PHOSPHORUS Specimen Type: PLASMA No comment entered. Ordering Provider: JEVON ZAZUETA Report Released Date/Time: Jul 05, 2024 01:22 PM Reporting Lab: [facility] [address] Performing Lab: [facility] [address] PHOSPHORUS 3.6 mg/dL 2.3-4.3 Jul 06, 2024 07:21 AM [facility] BASIC METABOLIC PANEL+MG Specimen Type: PLASMA No comment entered. Ordering Provider: JEVON ZAZUETA Report Released Date/Time: Jul 05, 2024 01:22 PM Reporting Lab: [facility] [address] Performing Lab: [facility] [address] CREATININE 0.7 mg/dL 0.7-1.2 UREA NITROGEN 12 mg/dL 8-26 GLUCOSE 108 mg/dL H 70-100 SODIUM 138 mmol/L 136-145 POTASSIUM 3.4 mmol/L L 3.5-5.1 CHLORIDE 104 mmol/L 98-107 CO2 20 mmol/L L 22-29 CALCIUM 9.3 mg/dL 8.4-10.2 MAGNESIUM 1.9 mg/dL 1.6-2.6 ANION GAP 14 mmol/L 5-15 .CREAT EGFR(CKD-EPI) >90 >60 Jul 05, 2024 07:17 AM [facility] MAGNESIUM Specimen Type: PLASMA No comment entered. Ordering Provider: JUANCARLOS ECHOLS S Report Released Date/Time: Jul 04, 2024 09:39 AM Reporting Lab: [facility] [address] Performing Lab: [facility] [address] MAGNESIUM 2.0 mg/dL 1.6-2.6 Jul 05, 2024 07:17 AM [facility] PHOSPHORUS Specimen Type: PLASMA No comment entered. Ordering Provider: JUANCARLOS ECHOLS S Report Released Date/Time: Jul 04, 2024 09:39 AM Reporting Lab: [facility] [address] Performing Lab: [facility] [address] PHOSPHORUS 2.0 mg/dL L 2.3-4.3 Jul 05, 2024 07:17 AM [facility] BASIC METABOLIC PANEL+MG Specimen Type: PLASMA No comment entered. Ordering Provider: JUANCARLOS ECHOLS S Report Released Date/Time: Jul 04, 2024 09:39 AM Reporting Lab: [facility] [address] Performing Lab: [facility] [address] CREATININE 0.7 mg/dL 0.7-1.2 UREA NITROGEN 12 mg/dL 8-26 GLUCOSE 84 mg/dL 70-100 SODIUM 135 mmol/L L 136-145 POTASSIUM 3.8 mmol/L 3.5-5.1 CHLORIDE 104 mmol/L 98-107 CO2 24 mmol/L 22-29 CALCIUM 9.3 mg/dL 8.4-10.2 MAGNESIUM 2.0 mg/dL 1.6-2.6 ANION GAP 7 mmol/L 5-15 .CREAT EGFR(CKD-EPI) >90 >60 Jul 05, 2024 07:16 AM [facility] CBC Specimen Type: BLOOD No comment entered. Ordering Provider: JUANCARLOS ECHOLS S Report Released Date/Time: Jul 04, 2024 09:39 AM Reporting Lab: [facility] [address] Performing Lab: [facility] [address] WBC 18.3 H 4.0-11.0 RBC 4.49 L 4.60-6.20 HGB 14.1 g/dL 13.5-17.9 HCT 43.4 41.0-54.0 MCV 96.7 fL 80.0-100.0 MCH 31.4 pg 27.0-33.0 MCHC 32.5 g/dL 32.0-37.5 PLT 317 150-400 MPV 10.0 fL 9.1-13.0 RDW 13.9 11.5-14.5 Jul 04, 2024 07:17 AM [facility] BASIC METABOLIC PANEL+MG Specimen Type: PLASMA No comment entered. Ordering Provider: GABINO CAMERON Report Released Date/Time: Jul 03, 2024 06:31 PM Reporting Lab: [facility] [address] Performing Lab: [facility] [address] CREATININE 0.7 mg/dL 0.7-1.2 UREA NITROGEN 16 mg/dL 8-26 GLUCOSE 129 mg/dL H 70-100 SODIUM 137 mmol/L 136-145 POTASSIUM 3.7 mmol/L 3.5-5.1 CHLORIDE 107 mmol/L 98-107 CO2 22 mmol/L 22-29 CALCIUM 9.0 mg/dL 8.4-10.2 MAGNESIUM 1.9 mg/dL 1.6-2.6 ANION GAP 8 mmol/L 5-15 .CREAT EGFR(CKD-EPI) >90 >60 Jul 04, 2024 07:17 AM [facility] PHOSPHORUS Specimen Type: PLASMA No comment entered. Ordering Provider: GABINO CAMERON Report Released Date/Time: Jul 03, 2024 06:31 PM Reporting Lab: [facility] [address] Performing Lab: [facility] [address] PHOSPHORUS 2.8 mg/dL 2.3-4.3 Jul 04, 2024 07:16 AM [facility] CBC Specimen Type: BLOOD No comment entered. Ordering Provider: GABINO CAMERON Report Released Date/Time: Jul 03, 2024 06:31 PM Reporting Lab: [facility] [address] Performing Lab: [facility] [address] WBC 20.6 H 4.0-11.0 RBC 4.63 4.60-6.20 HGB 14.2 g/dL 13.5-17.9 HCT 43.4 41.0-54.0 MCV 93.7 fL 80.0-100.0 MCH 30.7 pg 27.0-33.0 MCHC 32.7 g/dL 32.0-37.5 PLT 329 150-400 MPV 10.4 fL 9.1-13.0 RDW 13.8 11.5-14.5 Jul 04, 2024 07:16 AM [facility] CBC & DIFF Specimen Type: BLOOD Comment: Manual Differential Performed Ordering Provider: GABINO CAMERON Report Released Date/Time: Jul 03, 2024 06:31 PM Reporting Lab: [facility] [address] Performing Lab: [facility] [address] WBC 20.6 H 4.0-11.0 RBC 4.63 4.60-6.20 [...] PRESENT Jul 04, 2024 07:15 AM [facility] BNP Specimen Type: PLASMA No comment entered. Ordering Provider: GABINO CAMERON Report Released Date/Time: Jul 03, 2024 06:31 PM Reporting Lab: [facility] [address] Performing Lab: [facility] [address] BNP 292 pg/mL H <99 Jul 03, 2024 10:32 PM [facility] FINGERSTICK GLUCOSE Specimen Type: BLOOD Comment: Save Result Nurse Notified Ordering Provider: KATELYNN PERSON Report Released Date/Time: Jul 03, 2024 10:50 PM Reporting Lab: [facility] [address] Performing Lab: [facility] [address] FINGERSTICK GLUCOSE 126 mg/dL H 70-100 Jul 03, 2024 05:33 PM [facility] FINGERSTICK GLUCOSE Specimen Type: BLOOD Comment: Save Result Nurse Notified Ordering Provider: KATELYNN PERSON Report Released Date/Time: Jul 03, 2024 05:46 PM Reporting Lab: [facility] [address] Performing Lab: [facility] [address] FINGERSTICK GLUCOSE 141 mg/dL H [address] Jul 03, 2024 02:31 PM [facility] POC ABG/ELECTROLYTES Specimen Type: ARTERIAL BLOOD Comment: FIO2 = 97% Patient Temp: 36.0 C Sample Type = ARTERIAL Ordering Provider: MAZIN ARREDONDO Report Released Date/Time: Jul 03, 2024 01:48 PM Reporting Lab: [facility] [address] Performing Lab: [facility] [address] POC PH 7.387 7.35-7.45 POC PCO2 34.4 [...] 80.0-105.0 Jul 03, 2024 01:05 PM [facility] POC ABG/ELECTROLYTES Specimen Type: ARTERIAL BLOOD Comment: FIO2 = 53% Patient Temp: 36.2 C Sample Type = ARTERIAL Ordering Provider: MAZIN ARREDONDO Report Released Date/Time: Jul 03, 2024 01:48 PM Reporting Lab: [facility] [address] Performing Lab: [facility] [address] POC PH 7.280 L 7.35-7.45 POC PCO2 [...] 80.0-105.0 Jul 03, 2024 06:15 AM [facility] URINALYSIS Specimen Type: URINE No comment entered. Ordering Provider: MARYBETH POWELL Report Released Date/Time: Jun 12, 2024 04:01 PM Reporting Lab: [facility] [address] Performing Lab: [facility] [address] URINE COLOR YELLOW SPECIFIC GRAVITY 1.031 1.003-1.03 [...] NEGATIVE Jul 03, 2024 06:13 AM [facility] CBC Specimen Type: BLOOD No comment entered. Ordering Provider: MARYBETH POWELL Report Released Date/Time: Jun 12, 2024 03:59 PM Reporting Lab: [facility] [address] Performing Lab: [facility] [address] WBC 15.8 H 4.0-11.0 RBC 5.11 4.60-6.20 HGB 16.1 g/dL 13.5-17.9 HCT 49.1 41.0-54.0 MCV 96.1 fL 80.0-100.0 MCH 31.5 pg 27.0-33.0 MCHC 32.8 g/dL 32.0-37.5 PLT 357 150-400 MPV 9.8 fL 9.1-13.0 RDW 13.7 11.5-14.5 Jun 24, 2024 09:50 AM [facility] BASIC METABOLIC PANEL+MG Specimen Type: PLASMA Comment: Specimen received in Lab at: [id number] Ordering Provider: JEVON ZAZUETA Report Released Date/Time: Jun 23, 2024 06:07 PM Reporting Lab: [facility] [address] Performing Lab: [facility] [address] CREATININE 0.8 mg/dL 0.7-1.2 UREA NITROGEN 13 mg/dL 8-26 GLUCOSE 135 mg/dL H 70-100 SODIUM 135 mmol/L L 136-145 POTASSIUM 3.6 mmol/L 3.5-5.1 CHLORIDE 103 mmol/L 98-107 CO2 24 mmol/L 22-29 CALCIUM 9.2 mg/dL 8.4-10.2 MAGNESIUM 1.9 mg/dL 1.6-2.6 ANION GAP 8 mmol/L 5-15 .CREAT EGFR(CKD-EPI) >90 >60 Jun 24, 2024 09:50 AM [facility] CBC Specimen Type: BLOOD Comment: Specimen received in Lab at: 0948 Ordering Provider: JEVON ZAZUETA Report Released Date/Time: Jun 23, 2024 06:07 PM Reporting Lab: [facility] [address] Performing Lab: [facility] [address] WBC 15.5 H 4.0-11.0 RBC 4.93 4.60-6.20 HGB 15.2 g/dL 13.5-17.9 HCT 46.5 41.0-54.0 MCV 94.3 fL 80.0-100.0 MCH 30.8 pg 27.0-33.0 MCHC 32.7 g/dL 32.0-37.5 PLT 223 150-400 MPV 11.4 fL 9.1-13.0 RDW 13.9 11.5-14.5 Jun 23, 2024 07:52 AM [facility] COMPREHENSIVE METABOLIC PANEL+MG Specimen Type: PLASMA No comment entered. Ordering Provider: JEVON ZAZUETA Report Released Date/Time: Jun 22, 2024 05:51 PM Reporting Lab: [facility] [address] Performing Lab: [facility] [address] CREATININE 0.7 mg/dL 0.7-1.2 UREA NITROGEN 16 [...] >60 Jun 23, 2024 07:52 AM [facility] CBC & DIFF Specimen Type: BLOOD Comment: Automated Differential Performed Ordering Provider: JEVON ZAZUETA Report Released Date/Time: Jun 22, 2024 05:51 PM Reporting Lab: [facility] [address] Performing Lab: [facility] [address] WBC 14.9 H 4.0-11.0 RBC 5.09 4.60-6.20 [...] 0.0-0.1 Jun 22, 2024 06:10 PM [facility] COMPREHENSIVE METABOLIC PANEL+MG Specimen Type: PLASMA No comment entered. Ordering Provider: JEVON ZAZUETA Report Released Date/Time: Jun 22, 2024 05:51 PM Reporting Lab: [facility] [address] Performing Lab: [facility] [address] CREATININE 0.7 mg/dL 0.7-1.2 UREA NITROGEN 17 [...] >90 >60 Jun 22, 2024 06:10 PM [facility] CBC Specimen Type: BLOOD No comment entered. Ordering Provider: JEVON ZAZUETA Report Released Date/Time: Jun 22, 2024 05:51 PM Reporting Lab: [facility] [address] Performing Lab: [facility] [address] WBC 16.9 H 4.0-11.0 RBC 5.28 4.60-6.20 HGB 16.9 g/dL 13.5-17.9 HCT 50.4 41.0-54.0 MCV 95.5 fL 80.0-100.0 MCH 32.0 pg 27.0-33.0 MCHC 33.5 g/dL 32.0-37.5 PLT 223 150-400 MPV 10.9 fL 9.1-13.0 RDW 14.0 11.5-14.5 Jun 21, 2024 06:48 PM [facility] URINALYSIS Specimen Type: URINE No comment entered. Ordering Provider: DELIA MARTINEZ Report Released Date/Time: Jun 21, 2024 05:45 PM Reporting Lab: [facility] [address] Performing Lab: [facility] [address] URINE COLOR YELLOW SPECIFIC GRAVITY 1.041 H [...] NEGATIVE Jun 21, 2024 05:34 PM [facility] POC CREATININE Specimen Type: BLOOD No comment entered. Ordering Provider: DELIA MARTINEZ Report Released Date/Time: Jun 21, 2024 06:07 PM Reporting Lab: [facility] [address] Performing Lab: [facility] [address] POC CREATININE 1.1 mg/dL 0.6-1.3 Jun 21, 2024 05:30 PM [facility] POC ABG/LACTATE Specimen Type: VENOUS BLOOD No comment entered. Ordering Provider: DELIA MARTINEZ Report Released Date/Time: Jun 21, 2024 06:07 PM Reporting Lab: [facility] [address] Performing Lab: [facility] [address] POC PH 7.470 H 7.31-7.41 POC PCO2 31.2 mm[Hg] L 41.00-51 .0 0 POC PO2 46 mm[Hg] H 35.0-40.0 POC TCO2 24 mmol/L 24.0-29.0 POC HCO3 22.7 mmol/L L 23.0-28.0 POC BE ECT -1 mmol/L POC SO2 85 H 70-75 POC LACTATE 1.85 mmol/L 0.90-1.70 Jun 21, 2024 05:24 PM [facility] PROTHROMBIN TIME/INR Specimen Type: PLASMA No comment entered. Ordering Provider: DELIA MARTINEZ Report Released Date/Time: Jun 21, 2024 05:30 PM Reporting Lab: [facility] [address] Performing Lab: [facility] [address] .INR 1.2 H 0.8-1.1 .PT 13.9 s H 9.4-12.5 Jun 21, 2024 05:24 PM [facility] LIPASE Specimen Type: PLASMA No comment entered. Ordering Provider: DELIA MARTINEZ Report Released Date/Time: Jun 21, 2024 05:30 PM Reporting Lab: [facility] [address] Performing Lab: [facility] [address] LIPASE 32 U/L <60 Jun 21, 2024 05:24 PM [facility] EXTRA GOLD GEL TUBE Specimen Type: SERUM No comment entered. Ordering Provider: DELIA MARTINEZ Report Released Date/Time: Jun 21, 2024 05:41 PM Reporting Lab: [facility] [address] Performing Lab: [facility] [address] EXTRA GOLD GEL TUBE RECEIVED Jun 21, 2024 05:24 PM [facility] CBC & DIFF Specimen Type: BLOOD Comment: Manual Differential Performed Ordering Provider: DELIA MARTINEZ Report Released Date/Time: Jun 21, 2024 05:30 PM Reporting Lab: [facility] [address] Performing Lab: [facility] [address] WBC 21.3 H 4.0-11.0 RBC 5.48 4.60-6.20 [...] MORPHOLOGY PRESENT Jun 21, 2024 05:24 PM [facility] COMPREHENSIVE METABOLIC PANEL+MG Specimen Type: PLASMA No comment entered. Ordering Provider: DELIA MARTINEZ Report Released Date/Time: Jun 21, 2024 05:30 PM Reporting Lab: [facility] [address] Performing Lab: [facility] [address] CREATININE 0.9 mg/dL 0.7-1.2 UREA NITROGEN 29 [...] mg/dL <0.5 Jun 08, 2024 10:59 AM [facility] PROTHROMBIN TIME/INR Specimen Type: PLASMA No comment entered. Ordering Provider: MARYBETH POWELL Report Released Date/Time: May 28, 2024 09:02 AM Reporting Lab: [facility] [phone] Performing Lab: [facility] [phone] .INR 1.0 0.8-1.1 .PT 11.8 s 9.4-12.5 Jun 08, 2024 10:59 AM [facility] CBC Specimen Type: BLOOD No comment entered. Ordering Provider: MARYBETH POWELL Report Released Date/Time: May 28, 2024 09:02 AM Reporting Lab: [facility] [phone] Performing Lab: [facility] [phone] WBC 16.1 H 4.0-11.0 RBC 5.02 4.60-6.20 HGB 16.0 g/dL 13.5-17.9 HCT 47.1 41.0-54.0 MCV 93.8 fL 80.0-100.0 MCH 31.9 pg 27.0-33.0 MCHC 34.0 g/dL 32.0-37.5 PLT 228 150-400 MPV 10.3 fL 9.1-13.0 RDW 14.6 H 11.5-14.5 Jun 08, 2024 10:59 AM [facility] HEMOGLOBIN A1C Specimen Type: BLOOD [...] May 28, 2024 09:02 AM Reporting Lab: [facility] [phone] Performing Lab: [facility] [phone] HEMOGLOBIN A1C 4.9 4.0-6.0 Jun 08, 2024 10:59 AM [facility] BASIC METABOLIC PANEL+MG Specimen Type: PLASMA No comment entered. Ordering Provider: MARYBETH POWELL Report Released Date/Time: May 28, 2024 09:02 AM Reporting Lab: [facility] [phone] Performing Lab: [facility] [phone] CREATININE 0.9 mg/dL 0.7-1.2 UREA NITROGEN 15 [...] Source Jun 21, 2024 11:54 PM 7 [facility] Jun 21, 2024 11:29 PM 7 [facility] Jun 21, 2024 11:02 PM 97.9 75 130/75 17 95 7 [facility] Jun 21, 2024 04:51 PM 98.2 100 162/97 16 97 10 [facility] Social History: Smoking Status (Most current) and Tobacco Use (All prior to encounter date) This section includes the most current, and the historical, smoking and tobacco- related health factors from the [facility] where the Encounter took place. Current Smoking Status This section includes the most current smoking, or tobacco-related health factor, from the [place] facility where the Encounter took place. 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 [facility] May 06, 2023 11:30 AM [...] 2 VIEWS PA AND LAT: FLACA WEAVER [id number] -1950 M Exm Date: JUL 08, 2024@10:09 Req Phys: KATELYNN PERSON Pat Loc: G/07-08-2024@11:49 Img Loc: MAIN X-RAY Service: [place] [address] (Case 24 COMPLETE) CHEST 2 VIEWS PA AND LAT (RAD Detailed) CPT:81615 Reason for Study: Uptrending WBC, POD 5 [...] 08, 2024 Date Verified: JUL 08, 2024 Dispatch Associate E-Sig: Report: CHEST 2 VIEWS PA AND LAT HISTORY: Uptrending WBC, POD 5 COMPARISON: CT chest 11/12/2022 TECHNIQUE: Frontal and lateral views of the chest, submitted to the [place] National Teleradiology Program (NTP) for interpretation. FINDINGS: Lungs: Clear. No focal consolidation. No pulmonary edema. Pleura: No pleural effusion or pneumothorax. Mediastinum: Normal size and contour. Bones: Unremarkable. Impression: No acute cardiopulmonary disease. READING PHYSICIAN: Jessica Vaughn M.D. -[phone] 07/08/2024 12:46 EST [facility] National Teleradiology Program [phone] (For Medical Practitioner Use Only) Attention Patients / Veterans: If you have questions or concerns about these test results, please contact your ordering provider or primary care team. Primary Interpreting Staff: RADIOLOGY,OUTSIDE SERVICE, Staff Physician / RADIOLOGY,OUTSIDE SERVICE [facility] Jul 08, 2024 10:[address] (AP) ABDOMEN/PELVIS W CONTRAST: FLACA WEAVER [id number] -1950 M Exm Date: JUL 08, 2024@10:00 Req Phys: KATELYNN PERSON [facility] Loc: [facility]/07-08-2024@12:07 Img Loc: CT IMAGING Service: [place] [address] (Case [id number] COMPLETE) CT (AP) ABDOMEN/PELVIS W CONTRAST(CT Detailed) CPT:27717 Contrast Media : Non-ionic Iodinated Reason for [...] PLASMA .CREAT EGFR(CKD-E >90 Ref: >=60 Allergies: ([place] only) TERAZOSIN (Mar 13, 2015) Report Status: Verified Date Reported: JUL 08, 2024 Date Verified: JUL 08, 2024 Dispatch Associate E-Sig: Report: CT (AP) ABDOMEN/PELVIS W CONTRAST HISTORY: POD 5, Uptrending WBC - Concern for Abscess/other infection COMPARISON: June 21, 2024 TECHNIQUE: CT abdomen and pelvis was performed after intravenous contrast. Axial, sagittal and coronal reformatted images. The study was performed at the local [place] facility and images were sent to the [place] Teleradiology Program (NTP) for interpretation. Number [...] as noted above READING PHYSICIAN: Celestino Blanc -[phone] 07/08/2024 13:04 EST [facility] National Teleradiology Program [phone] (For Medical Practitioner Use Only) Attention Patients / Veterans: If you have questions or concerns about these test results, please contact your ordering provider or primary care team. Primary Interpreting Staff: RADIOLOGY,OUTSIDE SERVICE, Staff Physician / RADIOLOGY,OUTSIDE SERVICE [facility] Jun 22, 2024 11:49 AM ABSCESS DRAIN PLACEMENT PERITONEAL (P): FLACA WEAVER [id number] -1950 M Exm Date: JUN 22, 2024@11:49 Req Phys: ANGELA HOLDEN Amanda Loc: [facility]/06-22-2024@17:14 Img Loc: INTERVENTIONAL RADIOLOGY Service: [place] [address] (Case [id number] COMPLETE) IR PERITONEAL/RETROPERITONEAL PER(ANI Detailed) CPT:60927 Reason for Study: diverticulitis with abscess (Case [id number] COMPLETE) IR MOD SEDATION 10-22 MIN (ANI Detailed) CPT:59225 Clinical History: [place]ott IS NOT under investigation for COVID-19 or is COVID-19 negative 73 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 please place abscess drain. Contact number for responsible provider who can be reached for any questions or notifications of critical findings: [phone] n/a LAST CREATININE 0.9 (06/21/24) Report Status: Verified Date Reported: JUN 22, 2024 Date Verified: JUN 22, 2024 Dispatch Associate E-Sig:/ES/LISA PENDLETON MD Report: PROCEDURES: Placement of [...] pre-procedural Time-Out was performed per [facility] policy. The patient was placed in the supine position on the CT table. Preprocedural scan performed. The suprapubic region/lower abdominal wall was sterilely prepped and draped in the usual fashion.1% lidocaine without epinephrine was used for local anesthesia. Using real-time CT fluoroscopy, a 5 [place] Schooesis catheter was advanced into the collection in the left pelvis. A wire was coiled in the collection. The tract into the collection was dilated to accommodate the 12 [place]an locking pigtail drainage catheter. There was return [...] Primary Interpreting Staff: LISA PENDLETON MD, RADIOLOGIST (Dispatch Associate) /JRT LISA PENDLETON [facility] Jun 22, 2024 11:[address] NEEDLE PLACEMENT (P): FLACA WEAVER [id number] -1950 M Exm Date: JUN 22, 2024@11:48 Req Phys: ANGELA HOLDEN Loc: [facility]/06-22-2024@17:14 Img Loc: CT IMAGING Service: [place] [address] (Case [id number] COMPLETE) CT SCAN FOR NEEDLE PLACEMENT (CT Detailed) CPT:13782 Reason for Study: l pelvic abscess drain Clinical History: Report Status: Verified Date Reported: JUN 22, 2024 Date Verified: JUN 22, 2024 Dispatch Associate E-Sig:/ES/LISA PENDLETON MD Report: PROCEDURES: Placement of [...] pre-procedural Time-Out was performed per [facility] policy. The patient was placed in the supine position on the CT table. Preprocedural scan performed. The suprapubic region/lower abdominal wall was sterilely prepped and draped in the usual fashion.1% lidocaine without epinephrine was used for local anesthesia. Using real-time CT fluoroscopy, a 5 Comoran Yueh centesis catheter was advanced into the collection in the left pelvis. A wire was coiled in the collection. The tract into the collection was dilated to accommodate the 12 [place] locking pigtail drainage catheter. There was return [...] Primary Interpreting Staff: LISA PENDLETON MD, RADIOLOGIST (Dispatch Associate) /JRT LISA PENDLETON [facility] Jun 21, 2024 06:[address] (AP) ABDOMEN/PELVIS (P): FLACA WEAVER [id number] -1950 M Exm Date: JUN 21, 2024@18:09 Req Phys: DELIA MARTINEZ Loc: [facility] EMERGENCY DEPT WALK-IN (Re Img Loc: CT IMAGING Service: [place] [address] (Case [id number] COMPLETE) CT (AP) ABDOMEN/PELVIS W CONTRAST(CT Detailed) CPT:29393 Contrast Media : Non-ionic Iodinated Reason for [...] PLASMA .CREAT EGFR(CKD-E >90 Ref: >=60 Allergies: ([place] only) TERAZOSIN (Mar 13, 2015) Defer to radiologist for final CT protocol. Contact number for responsible provider who can be reached for any questions or notifications of critical findings: Jurao Per Joint Commission Standards, by signing this diagnostic imaging request the ordering provider confirms they have considered patients age and recent imaging history. Report Status: Verified Date Reported: JUN 21, 2024 Date Verified: JUN 21, 2024 Dispatch Associate E-Sig:/ALEXI/CARLOS A CUNNINGHAM DO Report: EXAMINATION: CT [...] Interpreting Staff: CARLOS A CUNNINGHAM DO, RADIOLOGIST (Dispatch Associate) /CARLOS A ROWELL [facility] May 25, 2024 09:00 AM IR FISTULOGRAM OR SINOGRAM : FALCA WEAVER [id number] -1950 Exm Date: MAY 25, 2024@09:00 Req Phys: AMINTA PRUITT Loc: [facility] INTERVENTIONAL RADIO Img Loc: INTERVENTIONAL RADIOLOGY Service: [place] [address] (Case [id number] COMPLETE) IR FISTULOGRAM OR SINOGRAM (ANI Detailed) CPT:03861 Contrast Media : unspecified contrast media Reason [...] 25, 2024 Date Verified: MAY 25, 2024 Dispatch Associate E-Sig:/ES/DAVID BURNS MD Report: PROCEDURES 05/25/2024 9:48 [...] Primary Interpreting Staff: DAVID BURNS MD, RADIOLOGIST (Dispatch Associate) /CSS DAVID BURNS [facility] May 25, 2024 08:[address] (AP) ABDOMEN/PELVIS (P): FLACA WEAVER [id number] -1950 M Exm Date: MAY 25, 2024@08:23 Req Phys: DAVID BURNS [facility] Loc: [facility] INTERVENTIONAL RADIO Img Loc: CT IMAGING Service: [place] [address] (Case [id number] COMPLETE) CT (AP) ABDOMEN/PELVIS W/O CONTRA(CT Detailed) CPT:60579 Reason for Study: assess abscess and possible [...] PLASMA .CREAT EGFR(CKD-E >90 Ref: >=60 Allergies: ([place] only) TERAZOSIN (Mar 13, 2015) Report Status: Verified Date Reported: MAY 25, 2024 Date Verified: MAY 25, 2024 Dispatch Associate E-Sig:/ES/JESSENIA GOODMAN MD Report: EXAM: CT abdomen and pelvis without intravenous contrast. 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 TECHNIQUE: Helical acquisition of image data was performed for the abdomen and pelvis without intravenous contrast. Dose: 512.57 mGy*cm COMPARISON: CT abdomen pelvis with contrast 05/11/[address] abdomen pelvis 04/23/2024.; CT abdomen pelvis 05/05/2020 FINDINGS: FAMILY THERAPIST: Pigtail catheter projecting over the left hemipelvis [...] Primary Interpreting Staff: JESSENIA GOODMAN MD, RADIOLOGIST (Dispatch Associate) Primary Interpreting Resident: YOHANNES MELO DO, CREDIT INVESTIGATOR /JESSENIA LOUIE [facility] Pathology Reports: +/- [...] 03, 2024 05:59 AM LR SURGICAL PATHOL [place] REPORT: LOCAL TITLE: LR SURGICAL PATHOLOGY REPORT STANDARD TITLE: PATHOLOGY REPORT DATE OF NOTE: JUL 06, 2024@10:40:48 ENTRY DATE: JUL 06, 2024@10:40:48 AUTHOR: EDUARDO PALOMARES EXP COSIGNER: URGENCY: STATUS: COMPLETED $APHDR Reporting Lab: [facility] [CLIA# [id number]] [place] [address] - - - - - - - [...] - PATHOLOGY REPORT Accession No. [id number] - - - - - - - [...] - PATHOLOGY REPORT Accession No. [id number] - - - - - - - [...] Second circumferential surgical margin, en face; E-F: Survey Technologist diverticula; G: Survey Technologist section of mesentery; H: Random commercial representative section of additional adipose tissue fragment. [...] One colonic tissue ring, bisected transversely. SS. (D[facility] [place]OS[place]IC DES[place]: Microscopic examination performed. DIAGNOSIS: 1. Colon, sigmoid, sigmoidectomy-- - Diverticulosis with perforation and focal abscess formation 2. Colon, anastomotic rings, excision-- - Viable colonic mucosa without diagnostic abnormality /es/ EDUARDO PALOMARES MD STAFF PATHOLOGIST Signed Jul 06, 2024@10:40 Performing Laboratory: Surgical Pathology Report Performed By: [facility] [CLIA# [id number]] [place] [address] $FTR - - - - - - [...] - - - - - - - MEGFLACA STANDARD FORM 515 ID:[id number] SEX:M :1950 AGE: 73 LOC:15652 ADM:Jun DX:DIVERTICULITIS PCP: Jatinder Cabrera /alexi/ EDUARDO PALOMARES MD STAFF PATHOLOGIST Signed: 07/06/2024 10:40 EDUARDO PALOMARES [facility] Jun 22, 2024 01:15 PM LR MICROBIOLOGY RE PORT: Reporting Lab: [facility] [CLIA# [id number]] [place] [address] Accession [UID]: [id number] [[id number]] Received: Jun 22, 2024@13:38 Collection sample: FLUID Collection date: Jun 22, 2024 13:15 Provider: ANGELA HOLDEN Comment on specimen: LLQ ABSCESS, RECEIVED IN ANAEROBIC TRANSPORT VIAL Test(s) ordered: GRAM STAIN.................... completed: Jun 22, 2024 15:03 CULTURE & SUSCEPTIBILITY...... completed: Jun 25, 2024 * BACTERIOLOGY FINAL REPORT => Jun 25, 2024 10:56 TECH CODE: [id number] GRAM STAIN: DIRECT SMEAR of specimen before [...] Performed By: [facility] [CLIA# [id number]] [place] [address] [facility] Jun 22, 2024 01:15 PM LR MICROBIOLOGY RE PORT: Reporting Lab: [facility] [CLIA# [id number]] [place] [address] Accession [UID]: [id number] [[id number]] Received: Jun 22, 2024@13:38 Collection sample: FLUID Collection date: Jun 22, 2024 13:15 Provider: ANGELA HOLDEN Comment on specimen: LLQ ABSCESS, RECEIVED IN ANAEROBIC TRANSPORT VIAL Test(s) ordered: ANAEROBIC CULTURE............. completed: Jun 28, 2024 * BACTERIOLOGY FINAL REPORT => Jun 28, 2024 10:08 TECH CODE: [id number] CULTURE RESULTS: HEAVY GROWTH MIXED ANAEROBES Comment: [...] Performed By: [facility] [CLIA# [id number]] [place] [address] [facility] Jun 21, 2024 06:12 PM LR MICROBIOLOGY RE PORT: Reporting Lab: [facility] [CLIA# [id number]] [place] [address] Accession [UID]: [id number] [[id number]] Received: Jun 21, 2024@18:12 Collection sample: BLOOD [...] Performed By: [facility] [CLIA# [id number]] [place] [address] [facility] Jun 21, 2024 06:11 PM LR MICROBIOLOGY RE PORT: Reporting Lab: [facility] [CLIA# [id number]] [place] [address] Accession [UID]: [id number] [[id number]] Received: Jun 21, 2024@18:11 Collection sample: BLOOD [...] Performed By: [facility] [CLIA# [id number]] [place] [address] [facility] Jun 08, 2024 11:00 AM LR MICROBIOLOGY RE PORT: Reporting Lab: [facility] [CLIA# [id number]] [place] [address] Accession [UID]: [id number] [[id number]] Received: Jun 08, 2024@11:00 Collection sample: URINE Collection date: Jun 08, 2024 11:00 Provider: MARYBETH POWELL Comment on specimen: urine Test(s) ordered: CULTURE & SUSCEPTIBILITY...... completed: Jun 09, 2024 * BACTERIOLOGY FINAL REPORT => Jun 09, 2024 19:12 TECH CODE: [id number] CULTURE RESULTS: ESCHERICHIA COLI - Quantity: >100,000 [...] Performed By: [facility] [CLIA# [id number]] [place] [address] [facility] Encounter Notes: All associated encounter notes This section contains the clinical notes associated to the Encounter. Date/Time Encounter Note(s) Provider Source Jun 21, 2024 10:41 PM NURSING EMERGENCY DEPT NOTE: LOCAL TITLE: EMERGENCY DEPT NURSING NOTE STANDARD TITLE: NURSING EMERGENCY DEPT NOTE DATE OF NOTE: JUN 21, 2024@22:41 ENTRY DATE: JUN 21, 2024@22:41:46 AUTHOR: JESSICA SUN EXP COSIGNER: URGENCY: STATUS: COMPLETED Admission to Inpatient from the Emergency Department Personal Protective Equipment (PPE): Patient was in mask on arrival Admission to Inpatient from the Emergency Department Date/Time: May@22:42 Chief complaint: Abd pain Code status: Allergies: TERAZOSIN (Mar 13, 2015) /alexi/ JESSICA SUN RN EMERGENCY DEPARTMENT Signed: 06/21/2024 22:42 JESSICA SUN [facility] Jun 21, 2024 07:01 PM COLON & RECTAL ELISA BRAEDEN CONSULT: LOCAL TITLE: PROCTO/COLORECTAL CONSULT STANDARD TITLE: COLON & RECTAL SURGERY CONSULT DATE OF NOTE: JUN 21, 2024@19:01 ENTRY DATE: JUN 21, 2024@19:01:27 AUTHOR: MERY NGUYEN COSIGNER: URGENCY: STATUS: COMPLETED PROCTO/COLORECTAL CONSULT Has ADDENDA General Surgery Consult Note History: 73 year old male with a history of HTN, HLD, CAD, CKD, diverticulitis complicated by colovesicular fistula and abscess managed by drain known to the colorectal service, most recently seen with plan for lap sigmoid colectomy on 07/03 who returns to the ED due to worsening pain. Pt states that the pain has been getting worse over the past 3 days. Did have some diarrhea. Now having nausea and dry heaves. No fever or chills. No chest pain or shortness of breath. Abdomainal pain is mainly in the lower abdomen but is to a lesser degree diffuse PMH: HTN, HLD, CAD, CKD, diverticulitis PSH: none Meds: Active Outpatient Medications (including Supplies): Active Outpatient Medications Status 1) ACETAMINOPHEN 325MG TAB TAKE TWO TABLETS BY MOUTH ACTIVE EVERY 6 HOURS NEEDED FOR PAIN 2) ATORVASTATIN CALCIUM 40MG TAB TAKE ONE-HALF TABLET BY ACTIVE MOUTH AT BEDTIME FOR CHOLESTEROL 3) BAG,LEG LATEX REUSABLE UROCARE #6910 USE 1 BAG ACTIVE DIRECTED WITH CHAPPELL 4) BAG,LEG LATEX REUSABLE UROCARE #9590 USE 1 BAG HOLD DIRECTED WITH CHAPPELL 5) COLON ELECTROLYTE LAVAGE PWD FOR SOLN TAKE 1 ACTIVE CONTAINER (4 LITERS) BY MOUTH ONCE PRE-OP FOR COLO-RECTAL SURGERY - INSTRUCTION SHEET MAILED FROM CLINIC 6) EMPAGLIFLOZIN 25MG TAB TAKE ONE-HALF TABLET BY MOUTH ACTIVE EVERY DAY 7) FUROSEMIDE 20MG TAB TAKE ONE TABLET BY MOUTH EVERY ACTIVE DAY FOR EXCESS FLUID 8) HCTZ 12.5/LISINOPRIL 10MG TAB TAKE ONE HALF TABLET BY ACTIVE MOUTH EVERY DAY FOR BLOOD PRESSURE 9) ISOSORBIDE MONONITRATE 30MG SA TAB TAKE ONE TABLET BY ACTIVE MOUTH EVERY DAY FOR CHEST PAIN 10) METRONIDAZOLE 500MG TAB TAKE ONE TABLET BY MOUTH ACTIVE THREE TIMES A DAY - TAKE AT 1PM, 2PM, AND 11PM THE DAY BEFORE PROCEDURE ALONG WITH NEOMYCIN 11) NEOMYCIN SULFATE 500MG TAB TAKE TWO TABLETS BY MOUTH ACTIVE THREE TIMES A DAY PREOP AT 1PM, 2PM AND 11PM ON THE DAY BEFORE COLORECTAL SURGERY (TAKE ALONG WITH METRONIDAZOLE) 12) NITROFURANTOIN MONO/MACRO 100MG SA CAP TAKE ONE ACTIVE CAPSULE BY MOUTH TWICE A DAY FOR UTI 13) NITROGLYCERIN 0.4MG SL TAB DISSOLVE ONE TABLET UNDER ACTIVE THE TONGUE THREE TIMES A DAY NEEDED CHEST PAIN FOR CHEST PAIN * MAY REPEAT EVERY 5 MINUTES--NO MORE THAN 3 TOTAL 14) PSYLLIUM ORAL PWD TAKE 2 TEASPOONSFUL BY MOUTH EVERY ACTIVE DAY FOR CONSTIPATION 15) SPIRONOLACTONE 25MG TAB TAKE ONE-HALF TABLET BY MOUTH ACTIVE EVERY DAY FOR BLOOD PRESSURE 16) SPONGE,DRAIN 4IN X 4IN EXCILON DEBORAH#7086 USE SPONGE(S) ACTIVE TOPICALLY DIRECTED 17) TAPE,MEDIPORE H SOFT 4IN X 10YD 3M#2862 CUT AND APPLY ACTIVE TAPE TOPICALLY DIRECTED Allergies: None FH: Non-contributory Social history: 2-3 drinks a week; no tobacco ROS: Constitutional: Denies fevers, chills, weight loss, weight gain, appetite change HEENT: Denies visual changes, double vision, nosebleeds, ringing in ears, sore throat CV: Denies chest pain, SOB, pain in calves when you walk GI: Abd pain, no constipation, diarrhea, blood in your bowel movement : Denies pain during urination, frequent urination MSK: Denies trouble using hands or feet, joint pain/stiffness Integument: Denies skin rashes Neurological: Denies problems with balance, numbness of arms or legs, weakness of arms or legs Psychiatric: Denies depression, denies anxiety. Endocrine: Denies tremor of hands, heart palpitations, feeling too hot or too cold Hematologic: Denies easy bleeding, easy bruising VITALS: Temperature: 98.2 F [36.8 C] (06/21/2024 16:51) Pulse: 100 (06/21/2024 16:51) Respirations: 16 (06/21/2024 16:51) Blood Pressure: 162/97 (06/21/2024 16:51) PE: General: Patient appears uncomfortable. Not in acute distress. Neuro: AAOx3. No obvious neurologic deficits Cardiac: not tachycardic Lungs: no respiratory distress Abdomen: soft, mildly distended, tender to palpation diffusly, worse in the lower abdomen, lesser degree in the upper abdomen. Pt withg localized peritonitis- not diffuse. No rebound, Some voluntary guarding, no rigidity Extremities: Moving all extremities Labs Reviewed: Laboratory: SODIUM 137 (06/21/24) POTASSIUM 3.0 L (06/21/24) CHLORIDE 98 (06/21/24) CO2 23 (06/21/24) UREA NITROGEN 29 H (06/21/24) GLUCOSE 137 H (06/21/24) CALCIUM 10.0 (06/21/24) MAGNESIUM 2.1 (06/21/24) PO4____ CREATININE 0.9 (06/21/24) HGB 17.8 (06/21/24) WBC 21.3 H (06/21/24) PLT 274 (06/21/24) INR 1.2 H PLASMA (06/21/24 17:24) Imaging Reviewed: CT scan FINDINGS: Left lower quadrant drain is no [...] complicated by peridiverticular abscess and colovesical fistula. Assessment and plan: 74 year old male with known diverticulitis complicated by colovesicular fistula seen by colorectal surgery with plan for lap sigmoid colectomy on 07/03 who returns for worsening pain. Pt has a leukocytosis of 21. CT ap reveals 2.7 x 4.9 x 2.4 gas and fluid collection at site of prior drain, likely an abscess; air in the bladder. Pt is diffusly tender to palpation worse in the lower abdomen but some pain in the upper abdomen. Leukocytosis of 21, afebrile, vitals stable Admit pt to colorectal Ceftriaxone, flagyl NPO IVF pain meds Ongoing discussion regarding optimal timing for operative intervention Pt was discussed with surgery Fellow Dr. Moncada who agrees with the above plan MD JAMILAH Alonso /alexi/ MERY NGUYEN MD SOD Signed: 06/21/2024 21:11 06/22/2024 ADDENDUM STATUS: COMPLETED Patient has failed management without a drain. Keep drain in - can d/c patient with drain in. Keep on antibtiotics. Will still plan on surgery on Tuesday 07/03 (no earlier time in OR). /alexi/ MARYBETH POWELL MD STAFF SURGEON, COLON/RECTAL Signed: 06/22/2024 19:03 MERY NGUYEN [facility] Jun 21, 2024 05:59 PM PHYSICIAN EMERGENC Y DEPT NOTE: LOCAL TITLE: EMERGENCY DEPT NOTE STANDARD TITLE: PHYSICIAN EMERGENCY DEPT NOTE DATE OF NOTE: JUN 21, 2024@17:59 ENTRY DATE: JUN 21, 2024@17:59:24 AUTHOR: DELIA MARTINEZ COSIGNER: URGENCY: STATUS: COMPLETED Personal Protective Equipment (PPE): Nurse's note reviewed. Chief Complaint: The patient is a 73 y/o MALE complaining of: LLQ pain TDAP/TD Immunizations ADMINISTERED Immunization Series Date Facility Reaction Info TDAP 11/17/2021 [place]* CONTRAINDICATED No data available REFUSED ======= No data available * Value is truncated; see the Detailed Immunizations Health Summary Component[DIM] for complete text Covid-19 Immunizations ADMINISTERED Immunization Series Date Facility Reaction Info COVID-19 (PFIZER), MRNA, LNP-S, * 1 11/01/2020 [place] <C> COVID-19 (PFIZER), MRNA, LNP-S, * 2 11/22/2020 [place] <C> COVID-19 (PFIZER), MRNA, LNP-S, * 3 07/10/2021 [place] <C> COVID-19 (PFIZER), MRNA, LNP-S, * 01/21/2022 [facility] [facility] COVID-19 (PFIZER), MRNA, LNP-S, * 4 01/21/2022 [place] <C> COVID-19 (PFIZER), MRNA, LNP-S, * 1 10/25/2022 [place] COVID-19 (PFIZER), MRNA, LNP-S, * 01/30/2024 [place] CONTRAINDICATED No data available REFUSED ======= No data available <C> See the Detailed Immunizations Health Summary Component[DIM] for Comments * Value is truncated; see the Detailed Immunizations Health Summary Component[DIM] for complete text History of present illness: Patient has a known history of diverticulitis C/B colovesicular fistula W/intra-abdominal abscess requiring a drain. Currently in preop for a lap sigmoidectomy and bilateral ureteral stent placement scheduled for 07/03/2024.and inability to eat due to nausea. Presenting today for 3 days of left lower quadrant abdominal pain, constipation, chills, and nausea. Is able to tolerate oral intake, last [place] at 11 AM today with some nausea without vomiting. Has been placed on antibiotics for diverticulitis/UTI from the fistula, has been unable to take the last few days. Main concern today is extreme pain to the left lower quadrant Allergies: TERAZOSIN (Mar 13, 2015) Review of Systems: 10 point ROS reviewed and otherwise negative unless stated in HPI. Past Medical History: Active problems - Computerized [...] . No additional CRC surveillance recommended by hr shared services consultant. 9. Decreased vitamin D - [...] - By 02.13.[address] 03.14.2020 OSH(ED [place], [place]): Pt. Declined Admission. 03.14.2020 CT with Mild Sigmoid diverticulitis. 04.23.2020 ED([facility]): Declined admission. 17. 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 18. Ex-tobacco user 19. Impaired Fasting Glucose (SCT [id number]) - 02.26.2014 A1c 5.8%. 20. Adrenal mass [...] recommended. 24. Hiatal hernia 25. Shoulder Pain ([facility] [id number]) 26. Trigger finger 27. [facility] - [facility] Primary: Dr. Cathi Simeon, [facility] [place] [address]. Medications: Active Outpatient Medications (excluding Supplies): Outpatient Medications Status 1) ACETAMINOPHEN 325MG TAB [...] ONE TABLET BY MOUTH EVERY ACTIVE DAY FOR EXCESS FLUID 6) HCTZ 12.5/LISINOPRIL [...] COLORECTAL SURGERY (TAKE ALONG WITH METRONIDAZOLE) 10) NITROFURANTOIN MONO/MACRO 100MG SA CAP TAKE ONE ACTIVE CAPSULE BY MOUTH TWICE A DAY FOR UTI 11) NITROGLYCERIN 0.4MG SL TAB DISSOLVE ONE TABLET UNDER ACTIVE THE TONGUE THREE TIMES A DAY NEEDED CHEST PAIN FOR CHEST PAIN * MAY REPEAT EVERY 5 MINUTES--NO MORE THAN 3 TOTAL 12) PSYLLIUM ORAL PWD TAKE 2 TEASPOONSFUL BY MOUTH EVERY ACTIVE DAY FOR CONSTIPATION 13) SPIRONOLACTONE 25MG TAB TAKE ONE-HALF TABLET BY MOUTH ACTIVE EVERY DAY FOR BLOOD PRESSURE Physical Exam: BP: 162/97 (06/21/2024 16:51) P: 100 (06/21/2024 16:51) R: 16 (06/21/2024 16:51) T: 98.2 F [36.8 C] (06/21/2024 16:51) O2 Sats: 97% (06/21/2024 16:51) General: well developed, well nourished Supine in bed, clutching left lower quadrant, in distress Skin: no rash, no lesions Neck: supple Eye: PERRLA, EOMI ENT: oropharynx clear Cardiovascular: RRR, no murmur appreciated, radial pulses bilateral and symmetric Respiratory: Lungs - clear to auscultation bilaterally, resonant throughout Abdominal: normal bowel sounds Exquisitely tender to all abdominal beck to light palpation. Neuro: alert and oriented, grossly non-focal Extremities: Not remarkable Labs: PT/INR Done: Yes WBC: 21.3 H RBC: 5.48 HGB: 17.8 HCT: 50.6 MCV: 92.3 MCH: 32.5 MCHC: 35.2 RDW: 14.1 PLT: 274 MPV: 11.2 SEGS: pending LYMPHS: pending INR 1999: 1.2 H PROTHROMBIN TIME (05/02): 13.9 H Imaging: CTAP Impression Recurrence of sigmoid diverticulitis complicated by peridiverticular abscess and colovesical fistula. ED Course/Medical Decision Making/Assessment: CPRS Notes/Labs Reviewed for Patient Encounter: Emergency department triage, emergency department nursing note, Diagnosis and Plan: Patient has a known history of complex diverticulitis complicated by colovesicular fistula and abscesses, scheduled for surgery with both colorectal and urology in about a week and a half, presenting with significant abdominal pain, nausea, constipation, and inability to eat. Vital signs reviewed, afebrile by oral temperature, tachycardic, hypertensive, all consistent with a pain response VS. Infection. Physical exam notable for patient who appears to be in pain, diffusely tender to light touch to all quadrants of the abdomen. Highly concerned for worsening of the patient's known diverticulitis, recurrence of abscess, abdominal perforation. Plan for labs, cultures, UA, CT abdomen pelvis, and consultation to the colorectal team. Symptom control with Zofran, Dilaudid, IV fluids, and Zosyn ordered empirically for presumed significant infection. Patient's labs notable for leukocytosis to 21.3, lactic acid only at 1.5, chemistry and INR within normal limits. CT abdomen pelvis notable for recurrent peridiverticular abscess and diverticulitis. Patient still in pain, more Dilaudid ordered. SOD consulted. Will admit under surgery team pending surgical planning and antibiotics. Disposition: Condition on discharge: Improved /es/ DELIA MARTINEZ EMERGENCY PHYSICIAN Signed: 06/21/2024 21:11 DELIA MARTINEZ [facility] Jun 21, 2024 04:52 PM NURSING EMERGENCY DEPT TRIAGE NOTE: LOCAL TITLE: EMERGENCY DEPARTMENT NURSING TRIAGE NOTE STANDARD TITLE: NURSING EMERGENCY DEPT TRIAGE NOTE DATE OF NOTE: JUN 21, 2024@16:52 ENTRY DATE: JUN 21, 2024@16:52:09 AUTHOR: NORI ZARAGOZA COSIGNER: URGENCY: STATUS: COMPLETED Emergency Department/Urgent Care Center Triage Patient age:73 Sex: MALE On arrival patient was: AMBULATORY Patient phone number: Allergies: TERAZOSIN (Mar 13, 2015) Subjective/Chief Complaint: Pt with LLQ pain x3 days.Nausea, no vomiting. Objective: Moaning, holding abdoman. The patient is not a fall risk. Vital Signs * Blood Pressure: 162/97 (06/21/2024 16:51) Heart Rate: 100 (06/21/2024 16:51) Respirations: 16 (06/21/2024 16:51) Temperature: 98.2 F [36.8 C] (06/21/2024 16:51) Pain: 10 (06/21/2024 16:51) Weight: 206.4 lb [93.62 kg] (06/08/2024 11:43) O2 Sats: 97% (06/21/2024 16:51) Emergency Severity Index (AILYN) level Level 3 Current Medications: Active Outpatient Medications (including Supplies): Active Outpatient Medications Status 1) ACETAMINOPHEN 325MG TAB TAKE TWO TABLETS BY MOUTH ACTIVE EVERY 6 HOURS NEEDED FOR PAIN 2) ATORVASTATIN CALCIUM 40MG TAB TAKE ONE-HALF TABLET BY ACTIVE MOUTH AT BEDTIME FOR CHOLESTEROL 3) BAG,LEG LATEX REUSABLE UROCARE #4434 USE 1 BAG ACTIVE DIRECTED WITH CHAPPELL 4) BAG,LEG LATEX REUSABLE UROCARE #1632 USE 1 BAG HOLD DIRECTED WITH CHAPPELL 5) COLON ELECTROLYTE LAVAGE PWD FOR SOLN TAKE 1 ACTIVE CONTAINER (4 LITERS) BY MOUTH ONCE PRE-OP FOR COLO-RECTAL SURGERY - INSTRUCTION SHEET MAILED FROM CLINIC 6) EMPAGLIFLOZIN 25MG TAB TAKE ONE-HALF TABLET BY MOUTH ACTIVE EVERY DAY 7) FUROSEMIDE 20MG TAB TAKE ONE TABLET BY MOUTH EVERY ACTIVE DAY FOR EXCESS FLUID 8) HCTZ 12.5/LISINOPRIL 10MG TAB TAKE ONE HALF TABLET BY ACTIVE MOUTH EVERY DAY FOR BLOOD PRESSURE 9) ISOSORBIDE MONONITRATE 30MG SA TAB TAKE ONE TABLET BY ACTIVE MOUTH EVERY DAY FOR CHEST PAIN 10) METRONIDAZOLE 500MG TAB TAKE ONE TABLET BY MOUTH ACTIVE THREE TIMES A DAY - TAKE AT 1PM, 2PM, AND 11PM THE DAY BEFORE PROCEDURE ALONG WITH NEOMYCIN 11) NEOMYCIN SULFATE 500MG TAB TAKE TWO TABLETS BY MOUTH ACTIVE THREE TIMES A DAY PREOP AT 1PM, 2PM AND 11PM ON THE DAY BEFORE COLORECTAL SURGERY (TAKE ALONG WITH METRONIDAZOLE) 12) NITROFURANTOIN MONO/MACRO 100MG SA CAP TAKE ONE ACTIVE CAPSULE BY MOUTH TWICE A DAY FOR UTI 13) NITROGLYCERIN 0.4MG SL TAB DISSOLVE ONE TABLET UNDER ACTIVE THE TONGUE THREE TIMES A DAY NEEDED CHEST PAIN FOR CHEST PAIN * MAY REPEAT EVERY 5 MINUTES--NO MORE THAN 3 TOTAL 14) PSYLLIUM ORAL PWD TAKE 2 TEASPOONSFUL BY MOUTH EVERY ACTIVE DAY FOR CONSTIPATION 15) SPIRONOLACTONE 25MG TAB TAKE ONE-HALF TABLET BY MOUTH ACTIVE EVERY DAY FOR BLOOD PRESSURE 16) SPONGE,DRAIN 4IN X 4IN EXCILON DEBORAH#1547 USE SPONGE(S) ACTIVE TOPICALLY DIRECTED 17) TAPE,MEDIPORE H SOFT 4IN X 10YD 3M#0504 CUT AND APPLY ACTIVE TAPE TOPICALLY DIRECTED Current Problems: Hypertension ([facility] [id number]) 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[facility] [id number]) Impulse control disorder ([facility] [id number]) Cervicalgia ([facility] [id number]) Sleep apnea ([facility] [id number]) Coronary artery disease ([facility] [id number]) Hyperlipidemia ([facility] [id number]) Colonoscopy normal ([facility] [id number]) Decreased vitamin D ([facility] [id number]) Aneurysm of common iliac artery ([facility] [id number]) Pain of both knees ([facility] [id number])History of surgery ([facility] [id number]) Wrist pain ([facility] [id number]) Carpal tunnel syndrome ([facility] [id number]) Steatosis of liver ([facility] [id number]) Diverticular disease ([facility] [id number]) Infarction of kidney ([facility] [id number]) Ex-tobacco user ([facility] [id number]) Impaired Fasting Glucose ([facility] [id number])Adrenal mass ([facility] [id number]) Abdominal aortic aneurysm ([facility] [id number] cyst ([facility] [id number]) Multiple nodules of lung ([facility] [id number])Hiatal hernia ([facility] [id number]) Shoulder Pain ([facility] [id number]) Trigger finger ([facility] [id number]) [facility] Primary Care (ICD-10-CM R69.) Identification of Seniors at Risk (ISAR):* Defer screen <75 Suicide Screen: [place] Suicide Severity Rating Scale (C-SSRS) screener 1. [...] due to responses to other questions. /alexi/ NORI ZARAGOZA BALLET MASTER/MISTRESS NURSE Signed: 06/21/2024 16:54 NORI ZARAGOZA [facility]
--- OUTSIDE RECORDS SUMMARY | 2024-07-16 07:29 | XMS_ITS | Encounter Summary ---
Author Name [facility] [place] [facility] [facility] [place] Address [address] [place] [address] Care Team Providers Care Ammunition Supervisor Name Role Phone JATINDER CABRERA Primary [...] PART A Sep 29, 2016 PART A [id number] JUDY WEAVER PATIENT Selected Encounter This section includes the information on record at [place] for the Encounter. Date/Time Encounter Type Encounter Description Reason Provider Source Jun 20, 2024 07:48 AM HC PRO PHONE CALL 5-10 MIN TELEPHONE/SURGERY ICD-10-CM Z71.89 Other specified counseling RAMIRO FABIAN Encounter Template Text not used by [place] Assessments - Encounter Diagnoses This section includes the primary and secondary diagnoses documented for the Encounter. Date/Time Primary/Secondary Diagnosis Diagnosis Name Provider Source Jun 20, 2024 07:48 AM PRIMARY Other specified counseling RAMIRO FABIAN [facility] Plan of Treatment: Future Appointments (+ 6 months) and Future Tests (+/- 45 days) The Plan of Treatment section includes future care activities for the patient from all [place] [facility] This section includes future appointments and future orders which are active, pending or scheduled. Future Appointments This section includes appointments that were scheduled to occur 6 months from the date of the Encounter, up to a maximum of 20 appointments. The data comes from all [facility]. Appointment Date/Time Appointment Type Appointme nt Facility Name Jun 21, 2024 04:48 PM AMBULATORY - MEDICINE [facility] Jun 21, 2024 05:45 PM AMBULATORY - NONE [facility] Jun 27, 2024 07:00 AM AMBULATORY - NONE [facility] Jun 27, 2024 07:30 AM AMBULATORY - MEDICINE [facility] Jun 27, 2024 08:00 AM AMBULATORY MEDICINE [facility] Jul 03, 2024 05:55 AM AMBULATORY - NONE [facility] Jul 13, 2024 08:15 AM AMBULATORY NONE [facility] Active, Pending, and Scheduled Orders This [...] from all [facility]. Test Date/Time Test Type Test Details Facility Name May 28, 2024 12:00 AM Laboratory - Blood Bank Order TYPE & SCREEN - LAB BLOOD SP [facility] Jun 08, 2024 09:57 AM Laboratory - Chemi stry Order URINALYSIS URINE WC ONCE [facility] Jun 12, 2024 12:00 AM Laboratory - Chemi stry Order BNP PLASMA SP ONCE [facility] Jun 21, 2024 05:45 PM Laboratory - Blood Bank Order TYPE & SCREEN - LAB BLOOD [facility] Jul 03, 2024 12:00 AM Laboratory - Blood Bank Order TYPE & SCREEN - LAB BLOOD [facility] Jul 16, 2024 12:00 AM Laboratory - Chemi stry Order CBC BLOOD SP ONCE [facility] Jul 17, 2024 12:00 AM Laboratory - Chemi stry Order BASIC METABOLIC PANEL+MG PLASMA SP ONCE [facility] Lab [...] Range Comment Jul 10, 2024 07:16 AM [facility] PHOSPHORUS Specimen Type: PLASMA No comment entered. Ordering Provider: JUANCARLOS ECHOLS S Report Released Date/Time: Jul 09, 2024 12:23 PM Reporting Lab: [facility] [address] Performing Lab: [facility] [address] PHOSPHORUS 3.0 mg/dL 2.3-4.3 Jul 10, 2024 07:16 AM [facility] BASIC METABOLIC PANEL+MG Specimen Type: PLASMA No comment entered. Ordering Provider: JUANCARLOS ECHOLS S Report Released Date/Time: Jul 09, 2024 12:23 PM Reporting Lab: [facility] [address] Performing Lab: [facility] [address] CREATININE 0.7 mg/dL 0.7-1.2 UREA NITROGEN 27 mg/dL H 8-26 GLUCOSE 104 mg/dL H 70-100 SODIUM 133 mmol/L L 136-145 POTASSIUM 4.3 mmol/L 3.5-5.1 CHLORIDE 102 mmol/L 98-107 CO2 19 mmol/L L 22-29 CALCIUM 10.1 mg/dL 8.4-10.2 MAGNESIUM 1.9 mg/dL 1.6-2.6 ANION GAP 12 mmol/L 5-15 .CREAT EGFR(CKD-EPI) >90 >60 Jul 10, 2024 07:15 AM [facility] CBC Specimen Type: BLOOD No comment entered. Ordering Provider: JUANCARLOS ECHOLS S Report Released Date/Time: Jul 09, 2024 12:23 PM Reporting Lab: [facility] [address] Performing Lab: [facility] [address] WBC 18.8 H 4.0-11.0 RBC 5.08 4.60-6.20 HGB 15.9 g/dL 13.5-17.9 HCT 46.8 41.0-54.0 MCV 92.1 fL 80.0-100.0 MCH 31.3 pg 27.0-33.0 MCHC 34.0 g/dL 32.0-37.5 PLT 479 H 150-400 MPV 10.2 fL 9.1-13.0 RDW 13.7 11.5-14.5 Jul 09, 2024 07:08 AM [facility] CBC Specimen Type: BLOOD No comment entered. Ordering Provider: QUYNH WEISS Report Released Date/Time: Jul 08, 2024 06:18 PM Reporting Lab: [facility] [address] Performing Lab: [facility] [address] WBC 15.3 H 4.0-11.0 RBC 4.91 4.60-6.20 HGB 15.1 g/dL 13.5-17.9 HCT 45.7 41.0-54.0 MCV 93.1 fL 80.0-100.0 MCH 30.8 pg 27.0-33.0 MCHC 33.0 g/dL 32.0-37.5 PLT 443 H 150-400 MPV 10.0 fL 9.1-13.0 RDW 13.5 11.5-14.5 Jul 08, 2024 10:50 AM [facility] URINALYSIS Specimen Type: URINE No comment entered. Ordering Provider: KATELYNN PERSON Report Released Date/Time: Jul 08, 2024 08:41 AM Reporting Lab: [facility] [address] Performing Lab: [facility] [address] URINE COLOR YELLOW SPECIFIC GRAVITY >1.050 H [...] NEGATIVE NEGATIVE Jul 08, 2024 09:54 AM [facility] CBC Specimen Type: BLOOD Comment: Specimen received in Lab at: 0952 Ordering Provider: JUANCARLOS ECHOLS Report Released Date/Time: Jul 07, 2024 04:49 PM Reporting Lab: [facility] [address] Performing Lab: [facility] [address] WBC 17.5 H 4.0-11.0 RBC 4.88 4.60-6.20 HGB 14.9 g/dL 13.5-17.9 HCT 45.7 41.0-54.0 MCV 93.6 fL 80.0-100.0 MCH 30.5 pg 27.0-33.0 MCHC 32.6 g/dL 32.0-37.5 PLT 472 H 150-400 MPV 10.2 fL 9.1-13.0 RDW 13.7 11.5-14.5 Jul 08, 2024 09:54 AM [facility] PHOSPHORUS Specimen Type: PLASMA Comment: Specimen received in Lab at: 0952 Ordering Provider: JUANCARLOS ECHOLS Report Released Date/Time: Jul 07, 2024 04:49 PM Reporting Lab: [facility] [address] Performing Lab: [facility] [address] PHOSPHORUS 2.6 mg/dL 2.3-4.3 Jul 08, 2024 09:54 AM [facility] BASIC METABOLIC PANEL+MG Specimen Type: PLASMA Comment: Specimen received in Lab at: 0952 Ordering Provider: JUANCARLOS ECHOLS Report Released Date/Time: Jul 07, 2024 04:49 PM Reporting Lab: [facility] [address] Performing Lab: [facility] [address] CREATININE 0.9 mg/dL 0.7-1.2 UREA NITROGEN 26 mg/dL 8-26 GLUCOSE 128 mg/dL H 70-100 SODIUM 134 mmol/L L 136-145 POTASSIUM 3.4 mmol/L L 3.5-5.1 CHLORIDE 100 mmol/L 98-107 CO2 24 mmol/L 22-29 CALCIUM 9.8 mg/dL 8.4-10.2 MAGNESIUM 1.8 mg/dL 1.6-2.6 ANION GAP 10 mmol/L 5-15 .CREAT EGFR(CKD-EPI) >90 >60 Jul 07, 2024 02:00 PM [facility] C DIFF PANEL Specimen Type: FECES No comment entered. Ordering Provider: JEVON ZAZUEAT Report Released Date/Time: Jul 07, 2024 12:26 PM Reporting Lab: [facility] [address] Performing Lab: [facility] [address] C DIFF TOX B GENE PCR NEGATIVE Negative Jul 07, 2024 07:41 AM [facility] PHOSPHORUS Specimen Type: PLASMA No comment entered. Ordering Provider: JEVON ZAZUETA Report Released Date/Time: Jul 06, 2024 03:44 PM Reporting Lab: [facility] [address] Performing Lab: [facility] [address] PHOSPHORUS 3.1 mg/dL 2.3-4.3 Jul 07, 2024 07:41 AM [facility] BASIC METABOLIC PANEL+MG Specimen Type: PLASMA No comment entered. Ordering Provider: JEVON ZAZUETA Report Released Date/Time: Jul 06, 2024 03:44 PM Reporting Lab: [facility] [address] Performing Lab: [facility] [address] CREATININE 0.9 mg/dL 0.7-1.2 UREA NITROGEN 20 mg/dL 8-26 GLUCOSE 157 mg/dL H 70-100 SODIUM 136 mmol/L 136-145 POTASSIUM 3.7 mmol/L 3.5-5.1 CHLORIDE 102 mmol/L 98-107 CO2 21 mmol/L L 22-29 CALCIUM 9.8 mg/dL 8.4-10.2 MAGNESIUM 1.9 mg/dL 1.6-2.6 ANION GAP 13 mmol/L 5-15 .CREAT EGFR(CKD-EPI) >90 >60 Jul 07, 2024 07:40 AM [facility] CBC Specimen Type: BLOOD No comment entered. Ordering Provider: JEVON ZAZUETA Report Released Date/Time: Jul 06, 2024 03:44 PM Reporting Lab: [facility] [address] Performing Lab: [facility] [address] WBC 21.2 H 4.0-11.0 RBC 5.09 4.60-6.20 HGB 15.9 g/dL 13.5-17.9 HCT 48.3 41.0-54.0 MCV 94.9 fL 80.0-100.0 MCH 31.2 pg 27.0-33.0 MCHC 32.9 g/dL 32.0-37.5 PLT 500 H 150-400 MPV 10.3 fL 9.1-13.0 RDW 13.6 11.5-14.5 Jul 06, 2024 07:21 AM [facility] CBC Specimen Type: BLOOD No comment entered. Ordering Provider: JEVON ZAZUETA Report Released Date/Time: Jul 05, 2024 01:22 PM Reporting Lab: [facility] [address] Performing Lab: [facility] [address] WBC 18.0 H 4.0-11.0 RBC 4.83 4.60-6.20 HGB 14.6 g/dL 13.5-17.9 HCT 45.5 41.0-54.0 MCV 94.2 fL 80.0-100.0 MCH 30.2 pg 27.0-33.0 MCHC 32.1 g/dL 32.0-37.5 PLT 368 150-400 MPV 10.4 fL 9.1-13.0 RDW 13.6 11.5-14.5 Jul 06, 2024 07:21 AM [facility] PHOSPHORUS Specimen Type: PLASMA No comment entered. Ordering Provider: JEVON ZAZUETA Report Released Date/Time: Jul 05, 2024 01:22 PM Reporting Lab: [facility] [address] Performing Lab: [facility] [address] PHOSPHORUS 3.6 mg/dL 2.3-4.3 Jul 06, 2024 07:21 AM [facility] BASIC METABOLIC PANEL+MG Specimen Type: PLASMA No comment entered. Ordering Provider: JEVON ZAZUETA Report Released Date/Time: Jul 05, 2024 01:22 PM Reporting Lab: [facility] [address] Performing Lab: [facility] [address] CREATININE 0.7 mg/dL 0.7-1.2 UREA NITROGEN 12 mg/dL 8-26 GLUCOSE 108 mg/dL H 70-100 SODIUM 138 mmol/L 136-145 POTASSIUM 3.4 mmol/L L 3.5-5.1 CHLORIDE 104 mmol/L 98-107 CO2 20 mmol/L L 22-29 CALCIUM 9.3 mg/dL 8.4-10.2 MAGNESIUM 1.9 mg/dL 1.6-2.6 ANION GAP 14 mmol/L 5-15 .CREAT EGFR(CKD-EPI) >90 >60 Jul 05, 2024 07:17 AM [facility] MAGNESIUM Specimen Type: PLASMA No comment entered. Ordering Provider: JUANCARLOS ECHOLS S Report Released Date/Time: Jul 04, 2024 09:39 AM Reporting Lab: [facility] [address] Performing Lab: [facility] [address] MAGNESIUM 2.0 mg/dL 1.6-2.6 Jul 05, 2024 07:17 AM [facility] PHOSPHORUS Specimen Type: PLASMA No comment entered. Ordering Provider: JUANCARLOS ECHOLS S Report Released Date/Time: Jul 04, 2024 09:39 AM Reporting Lab: [facility] [address] Performing Lab: [facility] [address] PHOSPHORUS 2.0 mg/dL L 2.3-4.3 Jul 05, 2024 07:17 AM [facility] BASIC METABOLIC PANEL+MG Specimen Type: PLASMA No comment entered. Ordering Provider: JUANCARLOS ECHOLS S Report Released Date/Time: Jul 04, 2024 09:39 AM Reporting Lab: [facility] [address] Performing Lab: [facility] [address] CREATININE 0.7 mg/dL 0.7-1.2 UREA NITROGEN 12 mg/dL 8-26 GLUCOSE 84 mg/dL 70-100 SODIUM 135 mmol/L L 136-145 POTASSIUM 3.8 mmol/L 3.5-5.1 CHLORIDE 104 mmol/L 98-107 CO2 24 mmol/L 22-29 CALCIUM 9.3 mg/dL 8.4-10.2 MAGNESIUM 2.0 mg/dL 1.6-2.6 ANION GAP 7 mmol/L 5-15 .CREAT EGFR(CKD-EPI) >90 >60 Jul 05, 2024 07:16 AM [facility] CBC Specimen Type: BLOOD No comment entered. Ordering Provider: JUANCARLOS ECHOLS S Report Released Date/Time: Jul 04, 2024 09:39 AM Reporting Lab: [facility] [address] Performing Lab: [facility] [address] WBC 18.3 H 4.0-11.0 RBC 4.49 L 4.60-6.20 HGB 14.1 g/dL 13.5-17.9 HCT 43.4 41.0-54.0 MCV 96.7 fL 80.0-100.0 MCH 31.4 pg 27.0-33.0 MCHC 32.5 g/dL 32.0-37.5 PLT 317 150-400 MPV 10.0 fL 9.1-13.0 RDW 13.9 11.5-14.5 Jul 04, 2024 07:17 AM [facility] BASIC METABOLIC PANEL+MG Specimen Type: PLASMA No comment entered. Ordering Provider: GABINO CAMERON Report Released Date/Time: Jul 03, 2024 06:31 PM Reporting Lab: [facility] [address] Performing Lab: [facility] [address] CREATININE 0.7 mg/dL 0.7-1.2 UREA NITROGEN 16 mg/dL 8-26 GLUCOSE 129 mg/dL H 70-100 SODIUM 137 mmol/L 136-145 POTASSIUM 3.7 mmol/L 3.5-5.1 CHLORIDE 107 mmol/L 98-107 CO2 22 mmol/L 22-29 CALCIUM 9.0 mg/dL 8.4-10.2 MAGNESIUM 1.9 mg/dL 1.6-2.6 ANION GAP 8 mmol/L 5-15 .CREAT EGFR(CKD-EPI) >90 >60 Jul 04, 2024 07:17 AM [facility] PHOSPHORUS Specimen Type: PLASMA No comment entered. Ordering Provider: GABINO CAMERON Report Released Date/Time: Jul 03, 2024 06:31 PM Reporting Lab: [facility] [address] Performing Lab: [facility] [address] PHOSPHORUS 2.8 mg/dL 2.3-4.3 Jul 04, 2024 07:16 AM [facility] CBC Specimen Type: BLOOD No comment entered. Ordering Provider: GABINO CAMERON Report Released Date/Time: Jul 03, 2024 06:31 PM Reporting Lab: [facility] [address] Performing Lab: [facility] [address] WBC 20.6 H 4.0-11.0 RBC 4.63 4.60-6.20 HGB 14.2 g/dL 13.5-17.9 HCT 43.4 41.0-54.0 MCV 93.7 fL 80.0-100.0 MCH 30.7 pg 27.0-33.0 MCHC 32.7 g/dL 32.0-37.5 PLT 329 150-400 MPV 10.4 fL 9.1-13.0 RDW 13.8 11.5-14.5 Jul 04, 2024 07:16 AM [facility] CBC & DIFF Specimen Type: BLOOD Comment: Manual Differential Performed Ordering Provider: GABINO CAMERON Report Released Date/Time: Jul 03, 2024 06:31 PM Reporting Lab: [facility] [address] Performing Lab: [facility] [address] WBC 20.6 H 4.0-11.0 RBC 4.63 4.60-6.20 [...] MORPHOLOGY PRESENT Jul 04, 2024 07:15 AM [facility] BNP Specimen Type: PLASMA No comment entered. Ordering Provider: GABINO CAMERON Report Released Date/Time: Jul 03, 2024 06:31 PM Reporting Lab: [facility] [address] Performing Lab: [facility] [address] BNP 292 pg/mL H <99 Jul 03, 2024 10:32 PM [facility] FINGERSTICK GLUCOSE Specimen Type: BLOOD Comment: Save Result Nurse Notified Ordering Provider: KATELYNN PERSON Report Released Date/Time: Jul 03, 2024 10:50 PM Reporting Lab: [facility] [address] Performing Lab: [facility] [address] FINGERSTICK GLUCOSE 126 mg/dL H 70-100 Jul 03, 2024 05:33 PM [facility] FINGERSTICK GLUCOSE Specimen Type: BLOOD Comment: Save Result Nurse Notified Ordering Provider: KATELYNN PERSON Report Released Date/Time: Jul 03, 2024 05:46 PM Reporting Lab: [facility] [address] Performing Lab: [facility] [address] FINGERSTICK GLUCOSE 141 mg/dL H 70-100 Jul 03, 2024 02:31 PM [facility] POC ABG/ELECTROLYTES Specimen Type: ARTERIAL BLOOD Comment: FIO2 = 97% Patient Temp: 36.0 C Sample Type = ARTERIAL Ordering Provider: MAZIN ARREDONDO Report Released Date/Time: Jul 03, 2024 01:48 PM Reporting Lab: [facility] [address] Performing Lab: [facility] [address] POC PH 7.387 7.35-7.45 POC PCO2 34.4 [...] H 80.0-105.0 Jul 03, 2024 01:05 PM [facility] POC ABG/ELECTROLYTES Specimen Type: ARTERIAL BLOOD Comment: FIO2 = 53% Patient Temp: 36.2 C Sample Type = ARTERIAL Ordering Provider: MAZIN ARREDONDO Report Released Date/Time: Jul 03, 2024 01:48 PM Reporting Lab: [facility] [address] Performing Lab: [facility] [address] POC PH 7.280 L 7.35-7.45 POC PCO2 [...] mm[Hg] 80.0-105.0 Jul 03, 2024 06:15 AM [facility] URINALYSIS Specimen Type: URINE No comment entered. Ordering Provider: MARYBETH POWELL Report Released Date/Time: Jun 12, 2024 04:01 PM Reporting Lab: [facility] [address] Performing Lab: [facility] [address] URINE COLOR YELLOW SPECIFIC GRAVITY 1.031 1.003-1.03 [...] 250 NEGATIVE Jul 03, 2024 06:13 AM [facility] CBC Specimen Type: BLOOD No comment entered. Ordering Provider: MARYBETH POWELL Report Released Date/Time: Jun 12, 2024 03:59 PM Reporting Lab: [facility] [address] Performing Lab: [facility] [address] WBC 15.8 H 4.0-11.0 RBC 5.11 4.60-6.20 HGB 16.1 g/dL 13.5-17.9 HCT 49.1 41.0-54.0 MCV 96.1 fL 80.0-100.0 MCH 31.5 pg 27.0-33.0 MCHC 32.8 g/dL 32.0-37.5 PLT 357 150-400 MPV 9.8 fL 9.1-13.0 RDW 13.7 11.5-14.5 Jun 24, 2024 09:50 AM [facility] BASIC METABOLIC PANEL+MG Specimen Type: PLASMA Comment: Specimen received in Lab at: [id number] Ordering Provider: JEVON ZAZUETA Report Released Date/Time: Jun 23, 2024 06:07 PM Reporting Lab: [facility] [address] Performing Lab: [facility] [address] CREATININE 0.8 mg/dL 0.7-1.2 UREA NITROGEN 13 mg/dL 8-26 GLUCOSE 135 mg/dL H 70-100 SODIUM 135 mmol/L L 136-145 POTASSIUM 3.6 mmol/L 3.5-5.1 CHLORIDE 103 mmol/L 98-107 CO2 24 mmol/L 22-29 CALCIUM 9.2 mg/dL 8.4-10.2 MAGNESIUM 1.9 mg/dL 1.6-2.6 ANION GAP 8 mmol/L 5-15 .CREAT EGFR(CKD-EPI) >90 >60 Jun 24, 2024 09:50 AM [facility] CBC Specimen Type: BLOOD Comment: Specimen received in Lab at: 0948 Ordering Provider: JEVON ZAZUETA Report Released Date/Time: Jun 23, 2024 06:07 PM Reporting Lab: [facility] [address] Performing Lab: [facility] [address] WBC 15.5 H 4.0-11.0 RBC 4.93 4.60-6.20 HGB 15.2 g/dL 13.5-17.9 HCT 46.5 41.0-54.0 MCV 94.3 fL 80.0-100.0 MCH 30.8 pg 27.0-33.0 MCHC 32.7 g/dL 32.0-37.5 PLT 223 150-400 MPV 11.4 fL 9.1-13.0 RDW 13.9 11.5-14.5 Jun 23, 2024 07:52 AM [facility] COMPREHENSIVE METABOLIC PANEL+MG Specimen Type: PLASMA No comment entered. Ordering Provider: JEVON ZAZUETA Report Released Date/Time: Jun 22, 2024 05:51 PM Reporting Lab: [facility] [address] Performing Lab: [facility] [address] CREATININE 0.7 mg/dL 0.7-1.2 UREA NITROGEN 16 [...] >90 >60 Jun 23, 2024 07:52 AM [facility] CBC & DIFF Specimen Type: BLOOD Comment: Automated Differential Performed Ordering Provider: JEVON ZAZUETA Report Released Date/Time: Jun 22, 2024 05:51 PM Reporting Lab: [facility] [address] Performing Lab: [facility] [address] WBC 14.9 H 4.0-11.0 RBC 5.09 4.60-6.20 [...] 0.1 0.0-0.1 Jun 22, 2024 06:10 PM [facility] CBC Specimen Type: BLOOD No comment entered. Ordering Provider: JEVON ZAZUETA Report Released Date/Time: Jun 22, 2024 05:51 PM Reporting Lab: [facility] [address] Performing Lab: [facility] [address] WBC 16.9 H 4.0-11.0 RBC 5.28 4.60-6.20 HGB 16.9 g/dL 13.5-17.9 HCT 50.4 41.0-54.0 MCV 95.5 fL 80.0-100.0 MCH 32.0 pg 27.0-33.0 MCHC 33.5 g/dL 32.0-37.5 PLT 223 150-400 MPV 10.9 fL 9.1-13.0 RDW 14.0 11.5-14.5 Jun 22, 2024 06:10 PM [facility] COMPREHENSIVE METABOLIC PANEL+MG Specimen Type: PLASMA No comment entered. Ordering Provider: JEVON ZAZUETA Report Released Date/Time: Jun 22, 2024 05:51 PM Reporting Lab: [facility] [address] Performing Lab: [facility] [address] CREATININE 0.7 mg/dL 0.7-1.2 UREA NITROGEN 17 [...] >90 >60 Jun 21, 2024 06:48 PM [facility] URINALYSIS Specimen Type: URINE No comment entered. Ordering Provider: DELIA MARTINEZ Report Released Date/Time: Jun 21, 2024 05:45 PM Reporting Lab: [facility] [address] Performing Lab: [facility] [address] URINE COLOR YELLOW SPECIFIC GRAVITY 1.041 H [...] 500 NEGATIVE Jun 21, 2024 05:34 PM [facility] POC CREATININE Specimen Type: BLOOD No comment entered. Ordering Provider: DELIA MARTINEZ Report Released Date/Time: Jun 21, 2024 06:07 PM Reporting Lab: [facility] [address] Performing Lab: [facility] [address] POC CREATININE 1.1 mg/dL 0.6-1.3 Jun 21, 2024 05:30 PM [facility] POC ABG/LACTATE Specimen Type: VENOUS BLOOD No comment entered. Ordering Provider: DELIA MARTINEZ Report Released Date/Time: Jun 21, 2024 06:07 PM Reporting Lab: [facility] [address] Performing Lab: [facility] [address] POC PH 7.470 H 7.31-7.41 POC PCO2 31.2 mm[Hg] L 41.00-51 .0 0 POC PO2 46 mm[Hg] H 35.0-40.0 POC TCO2 24 mmol/L 24.0-29.0 POC HCO3 22.7 mmol/L L 23.0-28.0 POC BE ECT -1 mmol/L POC SO2 85 H 70-75 POC LACTATE 1.85 mmol/L 0.90-1.70 Jun 21, 2024 05:24 PM [facility] PROTHROMBIN TIME/INR Specimen Type: PLASMA No comment entered. Ordering Provider: DELIA MARTINEZ Report Released Date/Time: Jun 21, 2024 05:30 PM Reporting Lab: [facility] [address] Performing Lab: [facility] [address] .INR 1.2 H 0.8-1.1 .PT 13.9 s H 9.4-12.5 Jun 21, 2024 05:24 PM [facility] EXTRA GOLD GEL TUBE Specimen Type: SERUM No comment entered. Ordering Provider: DELIA MARTINEZ Report Released Date/Time: Jun 21, 2024 05:41 PM Reporting Lab: [facility] [address] Performing Lab: [facility] [address] EXTRA GOLD GEL TUBE RECEIVED Jun 21, 2024 05:24 PM [facility] LIPASE Specimen Type: PLASMA No comment entered. Ordering Provider: DELIA MARTINEZ Report Released Date/Time: Jun 21, 2024 05:30 PM Reporting Lab: [facility] [address] Performing Lab: [facility] [address] LIPASE 32 U/L <60 Jun 21, 2024 05:24 PM [facility] COMPREHENSIVE METABOLIC PANEL+MG Specimen Type: PLASMA No comment entered. Ordering Provider: DELIA MARTINEZ Report Released Date/Time: Jun 21, 2024 05:30 PM Reporting Lab: [facility] [address] Performing Lab: [facility] [address] CREATININE 0.9 mg/dL 0.7-1.2 UREA NITROGEN 29 [...] mg/dL <0.5 Jun 21, 2024 05:24 PM [facility] CBC & DIFF Specimen Type: BLOOD Comment: Manual Differential Performed Ordering Provider: DELIA MARTINEZ Report Released Date/Time: Jun 21, 2024 05:30 PM Reporting Lab: [facility] [address] Performing Lab: [facility] [address] WBC 21.3 H 4.0-11.0 RBC 5.48 4.60-6.20 [...] MORPHOLOGY PRESENT Jun 08, 2024 10:59 AM [facility] PROTHROMBIN TIME/INR Specimen Type: PLASMA No comment entered. Ordering Provider: MARYBETH POWELL Report Released Date/Time: May 28, 2024 09:02 AM Reporting Lab: [facility] [address] Performing Lab: [facility] [address] .INR 1.0 0.8-1.1 .PT 11.8 s 9.4-12.5 Jun 08, 2024 10:59 AM [facility] HEMOGLOBIN A1C Specimen Type: BLOOD [...] May 28, 2024 09:02 AM Reporting Lab: [facility] [id number] Performing Lab: [facility] [address] HEMOGLOBIN A1C 4.9 4.0-6.0 Jun 08, 2024 10:59 AM [facility] CBC Specimen Type: BLOOD No comment entered. Ordering Provider: MARYBETH POWELL Report Released Date/Time: May 28, 2024 09:02 AM Reporting Lab: [facility] [address] Performing Lab: [facility] [address] WBC 16.1 H 4.0-11.0 RBC 5.02 4.60-6.20 HGB 16.0 g/dL 13.5-17.9 HCT 47.1 41.0-54.0 MCV 93.8 fL 80.0-100.0 MCH 31.9 pg 27.0-33.0 MCHC 34.0 g/dL 32.0-37.5 PLT 228 150-400 MPV 10.3 fL 9.1-13.0 RDW 14.6 H 11.5-14.5 Jun 08, 2024 10:59 AM [facility] BASIC METABOLIC PANEL+MG Specimen Type: PLASMA No comment entered. Ordering Provider: MARYBETH POWELL Report Released Date/Time: May 28, 2024 09:02 AM Reporting Lab: [facility] [address] Performing Lab: [facility] [address] CREATININE 0.9 mg/dL 0.7-1.2 UREA NITROGEN 15 mg/dL 8-26 GLUCOSE 93 mg/dL 70-100 SODIUM 139 mmol/L 136-145 POTASSIUM 3.7 mmol/L 3.5-5.1 CHLORIDE 106 mmol/L 98-107 CO2 25 mmol/L 22-29 CALCIUM 9.8 mg/dL 8.4-10.2 MAGNESIUM 2.1 mg/dL 1.6-2.6 ANION GAP 8 mmol/L 5-15 .CREAT EGFR(CKD-EPI) >90 >60 Social [...] 15, 2024 08:30 AM [facility] 15 YRS OR MORE [facility] May 06, 2023 11:30 AM 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 [facility] May 06, 2023 11:30 AM [...] Mar 23, 2016 CLINICAL WARNING [facility] Radiology Reports: +/- 30 [...] 2 VIEWS PA AND LAT: FLACA WEAVER [id number] -1950 M Exm Date: JUL 08, 2024@10:09 Req Phys: KATELYNN PERSON Loc: G07-08-2024@11:49 Img Loc: MAIN X-RAY Service: [place] [address] (Case 24 COMPLETE) CHEST 2 VIEWS PA AND LAT (RAD Detailed) CPT:89738 Reason for Study: Uptrending WBC, POD 5 Clinical History: [place] IS NOT under investigation for COVID-19 or is COVID-19 negative POD 5, work up for uptrending wbc Responsible provider name and phone number to notify for critical findings if other than user placing the order and pager listed below: User placing orders pager: Katelynn Person LAST CREATININE 0.9 (07/07/24) Report Status: Verified Date Reported: JUL 08, 2024 Date Verified: JUL 08, 2024 Grommet Worker E-Sig: Report: CHEST 2 VIEWS PA AND [...] cardiopulmonary disease. READING PHYSICIAN: Sarbjit Vaughn M.D. -[id number] 07/08/2024 12:46 [facility] National Teleradiology Program [phone] (For Medical Practitioner Use Only) Attention Patients / Veterans: If you have questions or concerns about these test results, please contact your ordering provider or primary care team. Primary Interpreting Staff: RADIOLOGY,OUTSIDE SERVICE, Staff Physician / RADIOLOGY,OUTSIDE SERVICE [facility] Jul 08, 2024 10:[address] (AP) ABDOMEN/PELVIS W CONTRAST: FLACA WEAVER [id number] -1950 M Exm Date: JUL 08, 2024@10:00 Req Phys: KATELYNN PERSON Loc: 2KG07-08-2024@12:07 Img Loc: CT IMAGING Service: [place] [address] (Case 22 COMPLETE) CT (AP) ABDOMEN/PELVIS W CONTRAST(CT Detailed) CPT:71910 Contrast Media : Non-ionic Iodinated Reason for [...] PLASMA .CREAT EGFR(CKD-E >90 Ref: >=60 Allergies: (Amber only) TERAZOSIN (Mar 13, 2015) Report Status: Verified Date Reported: JUL 08, 2024 Date Verified: JUL 08, 2024 Grommet Worker E-Sig: Report: CT (AP) ABDOMEN/PELVIS W CONTRAST [...] as noted above READING PHYSICIAN: Celestino Blanc -[phone] 07/08/2024 13:04 [facility] National Teleradiology Program [phone] (For Medical Practitioner Use Only) Attention Patients / Veterans: If you have questions or concerns about these test results, please contact your ordering provider or primary care team. Primary Interpreting Staff: RADIOLOGY,OUTSIDE SERVICE, Staff Physician / RADIOLOGY,OUTSIDE SERVICE [facility] Jun 22, 2024 11:49 AM ABSCESS DRAIN PLACEMENT PERITONEAL (P): FLACA WEAVER [id number] -1950 M Exm Date: JUN 22, 2024@11:49 Req Phys: ANGELA HOLDEN Loc: [facility]06-22-2024@17:14 Img Loc: INTERVENTIONAL RADIOLOGY Service: [place] [address] (Case [id number] COMPLETE) IR PERITONEAL/RETROPERITONEAL PER(ANI Detailed) CPT:88459 Reason for Study: diverticulitis with abscess (Case 3570 COMPLETE) IR MOD SEDATION 10-22 MIN (ANI Detailed) CPT:96366 Clinical History: IS NOT under investigation for COVID-19 or is COVID-19 negative 73 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 please place abscess drain. Contact number for responsible provider who can be reached for any questions or notifications of critical findings: [phone] n/a LAST CREATININE 0.9 (06/21/24) Report Status: Verified Date Reported: JUN 22, 2024 Date Verified: JUN 22, 2024 Grommet Worker E-Sig:/ES/LISA PENDLETON MD Report: PROCEDURES: Placement [...] obtained. A pre-procedural Time-Out was performed per [facility] policy. The patient was placed in the supine position on the CT table. Preprocedural scan performed. The suprapubic region/lower abdominal wall was sterilely prepped and draped in the usual fashion.1% lidocaine without epinephrine was used for local anesthesia. Using real-time CT fluoroscopy, a 5 [place] AeroFSesis catheter was advanced into the collection in [...] Primary Interpreting Staff: LISA PENDLETON MD, RADIOLOGIST (Grommet Worker) /JRT LISA PENDLETON [facility] Jun 22, 2024 11:[address] NEEDLE PLACEMENT (P): FLACA WEAVER [id number] -1950 M Exm Date: JUN 22, 2024@11:48 Req Phys: ANGELA HOLDEN Loc: [facility]/06-22-2024@17:14 Img Loc: CT IMAGING Service: [place] [address] (Case [id number] COMPLETE) CT SCAN FOR NEEDLE PLACEMENT (CT Detailed) CPT:06006 Reason for Study: l pelvic abscess drain Clinical History: Report Status: Verified Date Reported: JUN 22, 2024 Date Verified: JUN 22, 2024 Grommet Worker E-Sig:/ES/LISA PENDLETON MD Report: PROCEDURES: Placement [...] obtained. A pre-procedural Time-Out was performed per [facility] policy. The patient was placed in the supine position on the CT table. Preprocedural scan performed. The suprapubic region/lower abdominal wall was sterilely prepped and draped in the usual fashion.1% lidocaine without epinephrine was used for local anesthesia. Using real-time CT fluoroscopy, a 5 [place] AeroFSesis catheter was advanced into the collection in [...] Primary Interpreting Staff: LISA PENDLETON MD, RADIOLOGIST (Grommet Worker) /JRT LISA PENDLETON [facility] Jun 21, 2024 06:[address] (AP) ABDOMEN/PELVIS (P): FLACA WEAVER [id number] -1950 M Exm Date: JUN 21, 2024@18:09 Req Phys: DELIA MARTINEZ Loc: [facility] EMERGENCY DEPT WALK-IN (Re Img Loc: CT IMAGING Service: [place] [address] (Case [id number] COMPLETE) CT (AP) ABDOMEN/PELVIS W CONTRAST(CT Detailed) CPT:03993 Contrast Media : Non-ionic Iodinated Reason for [...] PLASMA .CREAT EGFR(CKD-E >90 Ref: >=60 Allergies: (Amber only) TERAZOSIN (Mar 13, 2015) Defer to [...] 21, 2024 Date Verified: JUN 21, 2024 Grommet Worker E-Sig:/ES/CARLOS A CUNNINGHAM DO Report: EXAMINATION: [...] Interpreting Staff: CARLOS A CUNNINGHAM DO, RADIOLOGIST (Grommet Worker) /CARLOS A ROWELL [facility] May 25, 2024 09:00 AM IR FISTULOGRAM OR SINOGRAM : FLACA WEAVER [id number] -1950 M Exm Date: MAY 25, 2024@09:00 Req Phys: AMINTA PRUITT Loc: [facility] XRAY INTERVENTIONAL RADIO Img Loc: INTERVENTIONAL RADIOLOGY Service: [place] [address] (Case [id number] COMPLETE) IR FISTULOGRAM OR SINOGRAM (ANI Detailed) CPT:05710 Contrast Media : unspecified contrast media Reason for Study: s/p drain placement for diverticular abscess- assess for drain Clinical History: [place] IS NOT under investigation for COVID-19 or [...] 25, 2024 Date Verified: MAY 25, 2024 Grommet Worker E-Sig:/ES/DAVID BUNRS MD Report: PROCEDURES 05/25/2024 9:48 AM: 1. [...] Primary Interpreting Staff: DAVID BURNS MD, RADIOLOGIST (Grommet Worker) /CSS DAVID BURNS [facility] May 25, 2024 08:[address] (AP) ABDOMEN/PELVIS (P): FLACA WEAVER [id number] -1950 M Exm Date: MAY 25, 2024@08:23 Req Phys: DAVID BURNS Pat Loc: [facility] XRAY INTERVENTIONAL RADIO Img Loc: CT IMAGING Service: [place] [address] (Case [id number] COMPLETE) CT (AP) ABDOMEN/PELVIS W/O CONTRA(CT Detailed) CPT:64990 Reason for Study: assess abscess and possible drain removal Clinical History: no contrast per venancio Per Joint Commission Standards, by signing this diagnostic imaging request the ordering provider confirms they have considered patients age and recent imaging history. Defer to radiologist for final CT protocol. Contact number for responsible provider who can be reached for any questions or notifications of critical findings: [id number] venancio LAST 3: Collection DT Specimen Test [...] PLASMA .CREAT EGFR(CKD-E >90 Ref: >=60 Allergies: (Amber only) TERAZOSIN (Mar 13, 2015) Report Status: Verified Date Reported: MAY 25, 2024 Date Verified: MAY 25, 2024 Grommet Worker E-Sig:/ES/JESSENIA GOODMAN MD Report: EXAM: CT [...] 04/23/2024.; CT abdomen pelvis 05/05/2020 FINDINGS: HOT BOX CHECKER: Pigtail catheter projecting over the left [...] Primary Interpreting Staff: JESSENIA GOODMAN MD, RADIOLOGIST (Grommet Worker) Primary Interpreting Resident: YOHANNES MELO DO, PIPE FOREMAN /CMN JESSENIA GOODMAN [facility] Pathology Reports: +/- 30 [...] COSIGNER: URGENCY: STATUS: COMPLETED $APHDR Reporting Lab: [facility] [CLIA# [id number]] [place] [address] - - - - - - - [...] - PATHOLOGY REPORT Accession No. [id number] - - - - - - - [...] - PATHOLOGY REPORT Accession No. [id number] - - - - - - - [...] Second circumferential surgical margin, en face; E-F: Board Certified Family Physician diverticula; G: Board Certified Family Physician section of mesentery; H: Random compliance representative section of additional adipose tissue fragment. [...] One colonic tissue ring, bisected transversely. SS. (D[facility] MICROSCOPIC DESCRIPTION: Microscopic examination performed. DIAGNOSIS: 1. Colon, sigmoid, sigmoidectomy-- - Diverticulosis with perforation and focal abscess formation 2. Colon, anastomotic rings, excision-- - Viable colonic mucosa without diagnostic abnormality /es/ EDUARDO PALOMARES MD STAFF PATHOLOGIST Signed Jul 06, 2024@10:40 Performing Laboratory: Surgical Pathology Report Performed By: [facility] [IA# [id number]] [place] [address] $FTR - - - - - - [...] - - FLACA WEAVER STANDARD FORM 515 ID:[id number] SEX:M :1950 AGE: 73 LOC:15380 ADM:Jun DX:DIVERTICULITIS PCP: Jatinder Cabrera /alexi/ EDUARDO PALOMARES MD STAFF PATHOLOGIST Signed: 07/06/2024 10:40 EDUARDO PALOMARES [facility] Jun 22, 2024 01:15 PM LR MICROBIOLOGY RE PORT: Reporting Lab: [facility] [CLIA# [id number]] [place] [address] Accession [UID]: [id number] [[id number]] Received: Jun 22, 2024@13:38 Collection sample: FLUID Collection date: Jun 22, 2024 13:15 Provider: ANGELA HOLDEN Comment on specimen: LLQ ABSCESS, RECEIVED IN ANAEROBIC TRANSPORT VIAL Test(s) ordered: GRAM STAIN.................... completed: Jun 22, 2024 15:03 CULTURE & SUSCEPTIBILITY...... completed: Jun 25, 2024 * BACTERIOLOGY FINAL REPORT => Jun 25, 2024 10:56 TECH CODE: [id number] GRAM STAIN: DIRECT SMEAR of specimen before [...] -=--=--=--=--=--=--=-- Performing Laboratory: Bacteriology Report Performed By: [facility] [CLIA# [id number]] [place] [address] [facility] Jun 22, 2024 01:15 PM LR MICROBIOLOGY RE PORT: Reporting Lab: [facility] [CLIA# [id number]] [place] [address] Accession [UID]: [id number] [[id number]] Received: Jun 22, 2024@13:38 Collection sample: FLUID Collection date: Jun 22, 2024 13:15 Provider: ANGELA HOLDEN Comment on specimen: LLQ ABSCESS, RECEIVED IN ANAEROBIC TRANSPORT VIAL Test(s) ordered: ANAEROBIC CULTURE............. completed: Jun 28, 2024 * BACTERIOLOGY FINAL REPORT => Jun 28, 2024 10:08 [facility] CODE: [id number] CULTURE RESULTS: HEAVY GROWTH MIXED ANAEROBES Comment: including the followin+ Bacteroides fragilis 4+ Bacteroides vulgatus 4+ Clostridium innocuum Beta-lactamase negative 4+ Bacteroides caccae 4+ Parvimonas micra 4+ Bacteroides uniformis 4+ Gemella morbillorum 4+ anaerobic small, Gram Positive Rods 4+ Bacteroides thetaiotaomicron Standard workup is now complete. Bacteriology Remark(s): THIS REPORT IS FINAL =--=--=--=--=--=--=--=--=--= --=--=--=--=--=--=--=--=--=- -=--=--=--=--=--=--=-- Performing Laboratory: Bacteriology Report Performed By: [facility] [CLIA# [id number]] [place] [address] [facility] Jun 21, 2024 06:12 PM LR MICROBIOLOGY RE PORT: Reporting Lab: [facility] [IA# [id number]] [place] [address] Accession [UID]: [id number] [[id number]] Received: Jun 21, 2024@18:12 Collection sample: BLOOD [...] -=--=--=--=--=--=--=-- Performing Laboratory: Bacteriology Report Performed By: [facility] [IA# [id number]] [place] [address] [facility] Jun 21, 2024 06:11 PM LR MICROBIOLOGY RE PORT: Reporting Lab: [facility] [IA# [id number]] [place] [address] Accession [UID]: [id number] [[id number]] Received: Jun 21, 2024@18:11 Collection sample: BLOOD [...] -=--=--=--=--=--=--=-- Performing Laboratory: Bacteriology Report Performed By: [facility] [CLIA# [id number]] [place] [address] [facility] Jun 08, 2024 11:00 AM LR MICROBIOLOGY RE PORT: Reporting Lab: [facility] [CLIA# [id number]] [place] [address] Accession [UID]: [id number] [[id number]] Received: Jun 08, 2024@11:00 Collection sample: URINE Collection date: Jun 08, 2024 11:00 Provider: MARYBETH POWELL Comment on specimen: urine Test(s) ordered: CULTURE & SUSCEPTIBILITY...... completed: Jun 09, 2024 * BACTERIOLOGY FINAL REPORT => Jun 09, 2024 19:12 TECH CODE: [id number] CULTURE RESULTS: ESCHERICHIA COLI - Quantity: >100,000 [...] -=--=--=--=--=--=--=-- Performing Laboratory: Bacteriology Report Performed By: [facility] [CLIA# [id number]] [place] [address] [facility] Encounter Notes: All associated encounter notes This section contains the clinical notes associated to the Encounter. Date/Time Encounter Note(s) Provider Source Jun 20, 2024 07:49 AM SURGERY CASE MANAG ER NOTE: LOCAL TITLE: SURGERY COORDINATOR NOTE STANDARD TITLE: SURGERY CORPORATE SECURITY OFFICER NOTE DATE OF NOTE: JUN 20, 2024@07:49 ENTRY DATE: JUN 20, 2024@07:49:40 AUTHOR: RAMIRO FABIAN EXP COSIGNER: URGENCY: STATUS: COMPLETED Colorectal - Pre-Procedure Call Questions Procedure: Combine case C/R: Laparoscopic sigmoidectomy with ICG Urology: Bilateral ureteral stens Surgery on July 03, 2024 Preoperative Medication Management: Hold all multivitamins, herbal supplements, NSAIDS x 7 days prior to surgery Hold HCTZ/lisinopril on DOS Hold fiber on DOS Discussed cancellation of surgery without transportation and 24 hour post op supervision. Admit Claims Adjuster: Daughter Xavi [phone] Additional Comments: Picture Copyist contacted the by phone regarding surgery on 07/03/2024. Please arrive at 2T at 0600 and to continue to practice social distancing. Picture Copyist educated the of the importance to have clear liquids the day before surgery and of diet being NPO at midnight the day before your surgery. Please take you Golytely the evening prior to surgery: start at 5 PM or take as instructed. Clear liquids until (2 hours before check in time). Examples of clear liquids: Water, sports drink (Gatorade), juice (only clear juices) and carbonated beverages - 7 up or sprite. Please take any ordered oral antibiotics the day before surgery at 1 PM, 2 PM, & 11 PM. Please use the sponge side of the scrubs you were given to gently clean the surgical area twice the evening before surgery. Rinse the area thoroughly after each 10 minute cleaning. Do these scrubs 2-4 hours apart. Do not shave the surgical area. The patient verbalized and understands. If you have any questions or concerns please call [phone]. All forms to be completed by the surgeon must go to the Release of Information (JEANNIE) desk in the main atrium. , option 5, location [facility]. informed of current visitor policy: 2 visitors allowed per day, hours 11am until 8pm, must be over 18 years of age. Time spent 5-10 minute phone call /alexi/ RAMIRO CHRISTIANSON, RN, PHN General Surgery/Colorectal Coordinator Signed: 06/20/2024 08:11 RAMIRO FABIAN [facility]
--- OUTSIDE RECORDS SUMMARY | 2024-07-16 07:29 | XMS_ITS ---
Author Name [facility] Organization [facility] [place] Address [address] [place] [address] Care Team Providers Care Animal Ecologist Name Role Phone PREMA CABERRA Primary Care Provider Unavail able Insurance Providers: [...] PART A Sep 29, 2016 PART A [id number] [phone] JUDY WEAVER PATIENT Selected Encounter This section includes the information on record at [place] for the Encounter. Date/Time Encounter Type Encounter Description Reason Provider Source Jun 21, 2024 10:50 PM Drainage of Peritoneal Cavity with Drain Dev, Perc Approach HOSPITALIZATION ICD-10-CM Z95.5 Presence of coronary angioplasty implant and graft DIEGO NGUYEN Encounter Template Text not used by [place] Assessments - Encounter Diagnoses This section includes the primary and secondary diagnoses documented for the Encounter. 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 [facility] Jun 25, 2024 09:20 AM SECONDARY Athscl heart disease of [place] coronary artery w/o ang pctrs [facility] Jun 25, 2024 09:20 AM SECONDARY Chronic diastolic (congestive) heart failure [facility] Jun 25, 2024 09:20 AM SECONDARY Hyperlipidemia, unspecified [facility] Jun 25, 2024 09:20 AM SECONDARY Hypertensive heart disease with heart failure [facility] Jun 25, 2024 09:20 AM SECONDARY Presence of coronary angioplasty implant and graft [facility] Jun 25, 2024 09:20 AM SECONDARY Vesicointestinal fistula [facility] Plan of Treatment: Future Appointments (+ 6 months) and Future Tests (+/- 45 days) The Plan of Treatment section includes future care activities for the patient from all [facility]. This section includes future appointments and future orders which are active, pending or scheduled. Future Appointments This section includes appointments that were scheduled to occur 6 months from the date of the Encounter, up to a maximum of 20 appointments. The data comes from all [facility]. Appointment Date/Time Appointment Type Appointme nt Facility Name Jun 27, 2024 07:00 AM AMBULATORY - NONE [facility] Jun 27, 2024 07:30 AM AMBULATORY - MEDICINE [facility] Jun 27, 2024 08:00 AM AMBULATORY - MEDICINE [facility] Jul 03, 2024 05:55 AM AMBULATORY - NONE [facility] Jul 13, 2024 08:15 AM AMBULATORY [facility] Active, Pending, and Scheduled Orders This section includes a listing of several types of active, pending, and scheduled orders, including clinic medications orders, diagnostic test orders, procedure orders and consult orders; where the start date of the order is 45 days before the date of the Encounter or 45 days after the date of theEncounter. The data comes from all [facility]. Test Date/Time Test Type Test Details Facility Name May 28, 2024 12:00 AM Laboratory - Blood Bank Order TYPE & SCREEN - LAB BLOOD SP [facility] Jun 08, 2024 09:57 AM Laboratory - Chemi stry Order URINALYSIS URINE WC ONCE [facility] Jun 12, 2024 12:00 AM Laboratory - Chemi stry Order BNP PLASMA SP ONCE [facility] Jun 21, 2024 05:45 PM Laboratory - Blood Bank Order TYPE & SCREEN - LAB BLOOD WC [facility] Jul 03, 2024 12:00 AM Laboratory - Blood Bank Order TYPE & SCREEN - LAB BLOOD WC [facility] Jul 16, 2024 12:00 AM Laboratory - Chemi stry Order CBC BLOOD SP ONCE [facility] Jul 17, 2024 12:00 AM Laboratory - Chemi stry Order BASIC METABOLIC PANEL+MG PLASMA SP ONCE [facility] Lab Results: +/- 30 [...] Range Comment Jul 10, 2024 07:16 AM [facility] PHOSPHORUS Specimen Type: PLASMA No comment entered. Ordering Provider: JUANCARLOS MAYEN Report Released Date/Time: Jul 09, 2024 12:23 PM Reporting Lab: [facility] [address] Performing Lab: [facility] [address] PHOSPHORUS 3.0 mg/dL 2.3-4.3 Jul 10, 2024 07:16 AM [facility] BASIC METABOLIC PANEL+MG Specimen Type: PLASMA No comment entered. Ordering Provider: JUANCARLOS MAYEN Report Released Date/Time: Jul 09, 2024 12:23 PM Reporting Lab: [facility] [address] Performing Lab: [facility] [address] CREATININE 0.7 mg/dL 0.7-1.2 UREA NITROGEN 27 mg/dL H 8-26 GLUCOSE 104 mg/dL H 70-100 SODIUM 133 mmol/L L 136-145 POTASSIUM 4.3 mmol/L 3.5-5.1 CHLORIDE 102 mmol/L 98-107 CO2 19 mmol/L L 22-29 CALCIUM 10.1 mg/dL 8.4-10.2 MAGNESIUM 1.9 mg/dL 1.6-2.6 ANION GAP 12 mmol/L 5-15 .CREAT EGFR(CKD-EPI) >90 >60 Jul 10, 2024 07:15 AM [facility] CBC Specimen Type: BLOOD No comment entered. Ordering Provider: JUANCARLOS MAYEN Report Released Date/Time: Jul 09, 2024 12:23 PM Reporting Lab: [facility] [address] Performing Lab: [facility] [address] WBC 18.8 H 4.0-11.0 RBC 5.08 4.60-6.20 HGB 15.9 g/dL 13.5-17.9 HCT 46.8 41.0-54.0 MCV 92.1 fL 80.0-100.0 MCH 31.3 pg 27.0-33.0 MCHC 34.0 g/dL 32.0-37.5 PLT 479 H 150-400 MPV 10.2 fL 9.1-13.0 RDW 13.7 11.5-14.5 Jul 09, 2024 07:08 AM [facility] CBC Specimen Type: BLOOD No comment entered. Ordering Provider: QUYNH WEISS Report Released Date/Time: Jul 08, 2024 06:18 PM Reporting Lab: [facility] [address] Performing Lab: [facility] [address] WBC 15.3 H 4.0-11.0 RBC 4.91 4.60-6.20 HGB 15.1 g/dL 13.5-17.9 HCT 45.7 41.0-54.0 MCV 93.1 fL 80.0-100.0 MCH 30.8 pg 27.0-33.0 MCHC 33.0 g/dL 32.0-37.5 PLT 443 H 150-400 MPV 10.0 fL 9.1-13.0 RDW 13.5 11.5-14.5 Jul 08, 2024 10:50 AM [facility] URINALYSIS Specimen Type: URINE No comment entered. Ordering Provider: KATELYNN PERSON Report Released Date/Time: Jul 08, 2024 08:41 AM Reporting Lab: [facility] [address] Performing Lab: [facility] [address] URINE COLOR YELLOW SPECIFIC GRAVITY >1.050 H [...] NEGATIVE NEGATIVE Jul 08, 2024 09:54 AM [facility] CBC Specimen Type: BLOOD Comment: Specimen received in Lab at: 0952 Ordering Provider: JUANCARLOS MAYEN Report Released Date/Time: Jul 07, 2024 04:49 PM Reporting Lab: [facility] [address] Performing Lab: [facility] [address] WBC 17.5 H 4.0-11.0 RBC 4.88 4.60-6.20 HGB 14.9 g/dL 13.5-17.9 HCT 45.7 41.0-54.0 MCV 93.6 fL 80.0-100.0 MCH 30.5 pg 27.0-33.0 MCHC 32.6 g/dL 32.0-37.5 PLT 472 H 150-400 MPV 10.2 fL 9.1-13.0 RDW 13.7 11.5-14.5 Jul 08, 2024 09:54 AM [facility] PHOSPHORUS Specimen Type: PLASMA Comment: Specimen received in Lab at: 0952 Ordering Provider: JUANCARLOS MAYEN Report Released Date/Time: Jul 07, 2024 04:49 PM Reporting Lab: [facility] [address] Performing Lab: [facility] [address] PHOSPHORUS 2.6 mg/dL 2.3-4.3 Jul 08, 2024 09:54 AM [facility] BASIC METABOLIC PANEL+MG Specimen Type: PLASMA Comment: Specimen received in Lab at: 0952 Ordering Provider: JUANCARLOS MAYEN Report Released Date/Time: Jul 07, 2024 04:49 PM Reporting Lab: [facility] [phone] Performing Lab: [facility] [address] CREATININE 0.9 mg/dL 0.7-1.2 UREA NITROGEN 26 mg/dL 8-26 GLUCOSE 128 mg/dL H 70-100 SODIUM 134 mmol/L L 136-145 POTASSIUM 3.4 mmol/L L 3.5-5.1 CHLORIDE 100 mmol/L 98-107 CO2 24 mmol/L 22-29 CALCIUM 9.8 mg/dL 8.4-10.2 MAGNESIUM 1.8 mg/dL 1.6-2.6 ANION GAP 10 mmol/L 5-15 .CREAT EGFR(CKD-EPI) >90 >60 Jul 07, 2024 02:00 PM [facility] C DIFF PANEL Specimen Type: FECES No comment entered. Ordering Provider: JEVON ZAZUETA Report Released Date/Time: Jul 07, 2024 12:26 PM Reporting Lab: [facility] [address] Performing Lab: [facility] [address] C DIFF TOX B GENE PCR NEGATIVE Negative Jul 07, 2024 07:41 AM [facility] PHOSPHORUS Specimen Type: PLASMA No comment entered. Ordering Provider: JEVON ZAZUETA Report Released Date/Time: Jul 06, 2024 03:44 PM Reporting Lab: [facility] [address] Performing Lab: [facility] [address] PHOSPHORUS 3.1 mg/dL 2.3-4.3 Jul 07, 2024 07:41 AM [facility] BASIC METABOLIC PANEL+MG Specimen Type: PLASMA No comment entered. Ordering Provider: JEVON ZAZUETA Report Released Date/Time: Jul 06, 2024 03:44 PM Reporting Lab: [facility] [address] Performing Lab: [facility] [address] CREATININE 0.9 mg/dL 0.7-1.2 UREA NITROGEN 20 mg/dL 8-26 GLUCOSE 157 mg/dL H 70-100 SODIUM 136 mmol/L 136-145 POTASSIUM 3.7 mmol/L 3.5-5.1 CHLORIDE 102 mmol/L 98-107 CO2 21 mmol/L L 22-29 CALCIUM 9.8 mg/dL 8.4-10.2 MAGNESIUM 1.9 mg/dL 1.6-2.6 ANION GAP 13 mmol/L 5-15 .CREAT EGFR(CKD-EPI) >90 >60 Jul 07, 2024 07:40 AM [facility] CBC Specimen Type: BLOOD No comment entered. Ordering Provider: JEVON ZAZUETA Report Released Date/Time: Jul 06, 2024 03:44 PM Reporting Lab: [facility] [address] Performing Lab: [facility] [address] WBC 21.2 H 4.0-11.0 RBC 5.09 4.60-6.20 HGB 15.9 g/dL 13.5-17.9 HCT 48.3 41.0-54.0 MCV 94.9 fL 80.0-100.0 MCH 31.2 pg 27.0-33.0 MCHC 32.9 g/dL 32.0-37.5 PLT 500 H 150-400 MPV 10.3 fL 9.1-13.0 RDW 13.6 11.5-14.5 Jul 06, 2024 07:21 AM [facility] CBC Specimen Type: BLOOD No comment entered. Ordering Provider: JEVON ZAZUETA Report Released Date/Time: Jul 05, 2024 01:22 PM Reporting Lab: [facility] [address] Performing Lab: [facility] [address] WBC 18.0 H 4.0-11.0 RBC 4.83 4.60-6.20 HGB 14.6 g/dL 13.5-17.9 HCT 45.5 41.0-54.0 MCV 94.2 fL 80.0-100.0 MCH 30.2 pg 27.0-33.0 MCHC 32.1 g/dL 32.0-37.5 PLT 368 150-400 MPV 10.4 fL 9.1-13.0 RDW 13.6 11.5-14.5 Jul 06, 2024 07:21 AM [facility] PHOSPHORUS Specimen Type: PLASMA No comment entered. Ordering Provider: JEVON ZAZUETA Report Released Date/Time: Jul 05, 2024 01:22 PM Reporting Lab: [facility] [address] Performing Lab: [facility] [address] PHOSPHORUS 3.6 mg/dL 2.3-4.3 Jul 06, 2024 07:21 AM [facility] BASIC METABOLIC PANEL+MG Specimen Type: PLASMA No comment entered. Ordering Provider: JEVON ZAZUETA Report Released Date/Time: Jul 05, 2024 01:22 PM Reporting Lab: [facility] [address] Performing Lab: [facility] [address] CREATININE 0.7 mg/dL 0.7-1.2 UREA NITROGEN 12 mg/dL 8-26 GLUCOSE 108 mg/dL H 70-100 SODIUM 138 mmol/L 136-145 POTASSIUM 3.4 mmol/L L 3.5-5.1 CHLORIDE 104 mmol/L 98-107 CO2 20 mmol/L L 22-29 CALCIUM 9.3 mg/dL 8.4-10.2 MAGNESIUM 1.9 mg/dL 1.6-2.6 ANION GAP 14 mmol/L 5-15 .CREAT EGFR(CKD-EPI) >90 >60 Jul 05, 2024 07:17 AM [facility] MAGNESIUM Specimen Type: PLASMA No comment entered. Ordering Provider: JUANCARLOS MAYEN Report Released Date/Time: Jul 04, 2024 09:39 AM Reporting Lab: [facility] [address] Performing Lab: [facility] [address] MAGNESIUM 2.0 mg/dL 1.6-2.6 Jul 05, 2024 07:17 AM [facility] PHOSPHORUS Specimen Type: PLASMA No comment entered. Ordering Provider: JUANCARLOS MAYEN S Report Released Date/Time: Jul 04, 2024 09:39 AM Reporting Lab: [facility] [address] Performing Lab: [facility] [address] PHOSPHORUS 2.0 mg/dL L 2.3-4.3 Jul 05, 2024 07:17 AM [facility] BASIC METABOLIC PANEL+MG Specimen Type: PLASMA No comment entered. Ordering Provider: JUANCARLOS MAYEN S Report Released Date/Time: Jul 04, 2024 09:39 AM Reporting Lab: [facility] [address] Performing Lab: [facility] [address] CREATININE 0.7 mg/dL 0.7-1.2 UREA NITROGEN 12 mg/dL 8-26 GLUCOSE 84 mg/dL 70-100 SODIUM 135 mmol/L L 136-145 POTASSIUM 3.8 mmol/L 3.5-5.1 CHLORIDE 104 mmol/L 98-107 CO2 24 mmol/L 22-29 CALCIUM 9.3 mg/dL 8.4-10.2 MAGNESIUM 2.0 mg/dL 1.6-2.6 ANION GAP 7 mmol/L 5-15 .CREAT EGFR(CKD-EPI) >90 >60 Jul 05, 2024 07:16 AM [facility] CBC Specimen Type: BLOOD No comment entered. Ordering Provider: JUANCARLOS MAYEN S Report Released Date/Time: Jul 04, 2024 09:39 AM Reporting Lab: [facility] [address] Performing Lab: [facility] [address] WBC 18.3 H 4.0-11.0 RBC 4.49 L 4.60-6.20 HGB 14.1 g/dL 13.5-17.9 HCT 43.4 41.0-54.0 MCV 96.7 fL 80.0-100.0 MCH 31.4 pg 27.0-33.0 MCHC 32.5 g/dL 32.0-37.5 PLT 317 150-400 MPV 10.0 fL 9.1-13.0 RDW 13.9 11.5-14.5 Jul 04, 2024 07:17 AM [facility] BASIC METABOLIC PANEL+MG Specimen Type: PLASMA No comment entered. Ordering Provider: GABINO CAMERON Report Released Date/Time: Jul 03, 2024 06:31 PM Reporting Lab: [facility] [address] Performing Lab: [facility] [address] CREATININE 0.7 mg/dL 0.7-1.2 UREA NITROGEN 16 mg/dL 8-26 GLUCOSE 129 mg/dL H 70-100 SODIUM 137 mmol/L 136-145 POTASSIUM 3.7 mmol/L 3.5-5.1 CHLORIDE 107 mmol/L 98-107 CO2 22 mmol/L 22-29 CALCIUM 9.0 mg/dL 8.4-10.2 MAGNESIUM 1.9 mg/dL 1.6-2.6 ANION GAP 8 mmol/L 5-15 .CREAT EGFR(CKD-EPI) >90 >60 Jul 04, 2024 07:17 AM [facility] PHOSPHORUS Specimen Type: PLASMA No comment entered. Ordering Provider: GABINO CAMERON Report Released Date/Time: Jul 03, 2024 06:31 PM Reporting Lab: [facility] [address] Performing Lab: [facility] [address] PHOSPHORUS 2.8 mg/dL 2.3-4.3 Jul 04, 2024 07:16 AM [facility] CBC Specimen Type: BLOOD No comment entered. Ordering Provider: GABINO CAMERON Report Released Date/Time: Jul 03, 2024 06:31 PM Reporting Lab: [facility] [address] Performing Lab: [facility] [address] WBC 20.6 H 4.0-11.0 RBC 4.63 4.60-6.20 HGB 14.2 g/dL 13.5-17.9 HCT 43.4 41.0-54.0 MCV 93.7 fL 80.0-100.0 MCH 30.7 pg 27.0-33.0 MCHC 32.7 g/dL 32.0-37.5 PLT 329 150-400 MPV 10.4 fL 9.1-13.0 RDW 13.8 11.5-14.5 Jul 04, 2024 07:16 AM [facility] CBC & DIFF Specimen Type: BLOOD Comment: Manual Differential Performed Ordering Provider: GABINO CAMERON Report Released Date/Time: Jul 03, 2024 06:31 PM Reporting Lab: [facility] [address] Performing Lab: [facility] [address] WBC 20.6 H 4.0-11.0 RBC 4.63 4.60-6.20 [...] MORPHOLOGY PRESENT Jul 04, 2024 07:15 AM [facility] BNP Specimen Type: PLASMA No comment entered. Ordering Provider: GABINO CAMERON Report Released Date/Time: Jul 03, 2024 06:31 PM Reporting Lab: [facility] [address] Performing Lab: [facility] [address] BNP 292 pg/mL H <99 Jul 03, 2024 10:32 PM [facility] FINGERSTICK GLUCOSE Specimen Type: BLOOD Comment: Save Result Nurse Notified Ordering Provider: KATELYNN PERSON Report Released Date/Time: Jul 03, 2024 10:50 PM Reporting Lab: [facility] [address] Performing Lab: [facility] [address] FINGERSTICK GLUCOSE 126 mg/dL H 70-100 Jul 03, 2024 05:33 PM [facility] FINGERSTICK GLUCOSE Specimen Type: BLOOD Comment: Save Result Nurse Notified Ordering Provider: KATELYNN PERSON Report Released Date/Time: Jul 03, 2024 05:46 PM Reporting Lab: [facility] [address] Performing Lab: [facility] [address] FINGERSTICK GLUCOSE 141 mg/dL H 70-100 Jul 03, 2024 02:31 PM [facility] POC ABG/ELECTROLYTES Specimen Type: ARTERIAL BLOOD Comment: FIO2 = 97% Patient Temp: 36.0 C Sample Type = ARTERIAL Ordering Provider: MAZIN ARREDONDO Report Released Date/Time: Jul 03, 2024 01:48 PM Reporting Lab: [facility] [address] Performing Lab: [facility] [address] POC PH 7.387 7.35-7.45 POC PCO2 34.4 [...] H 80.0-105.0 Jul 03, 2024 01:05 PM [facility] POC ABG/ELECTROLYTES Specimen Type: ARTERIAL BLOOD Comment: FIO2 = 53% Patient Temp: 36.2 C Sample Type = ARTERIAL Ordering Provider: MAZIN ARREDONDO Report Released Date/Time: Jul 03, 2024 01:48 PM Reporting Lab: [facility] [address] Performing Lab: [facility] [address] POC PH 7.280 L 7.35-7.45 POC PCO2 [...] mm[Hg] 80.0-105.0 Jul 03, 2024 06:15 AM [facility] URINALYSIS Specimen Type: URINE No comment entered. Ordering Provider: MARYBETH POWELL Report Released Date/Time: Jun 12, 2024 04:01 PM Reporting Lab: [facility] [address] Performing Lab: [facility] [address] URINE COLOR YELLOW SPECIFIC GRAVITY 1.031 1.003-1.03 [...] 250 NEGATIVE Jul 03, 2024 06:13 AM [facility] CBC Specimen Type: BLOOD No comment entered. Ordering Provider: MARYBETH POWELL Report Released Date/Time: Jun 12, 2024 03:59 PM Reporting Lab: [facility] [address] Performing Lab: [facility] [address] WBC 15.8 H 4.0-11.0 RBC 5.11 4.60-6.20 HGB 16.1 g/dL 13.5-17.9 HCT 49.1 41.0-54.0 MCV 96.1 fL 80.0-100.0 MCH 31.5 pg 27.0-33.0 MCHC 32.8 g/dL 32.0-37.5 PLT 357 150-400 MPV 9.8 fL 9.1-13.0 RDW 13.7 11.5-14.5 Jun 24, 2024 09:50 AM [facility] BASIC METABOLIC PANEL+MG Specimen Type: PLASMA Comment: Specimen received in Lab at: 0948 Ordering Provider: JEVON ZAZUETA Report Released Date/Time: Jun 23, 2024 06:07 PM Reporting Lab: [facility] [address] Performing Lab: [facility] [address] CREATININE 0.8 mg/dL 0.7-1.2 UREA NITROGEN 13 mg/dL 8-26 GLUCOSE 135 mg/dL H 70-100 SODIUM 135 mmol/L L 136-145 POTASSIUM 3.6 mmol/L 3.5-5.1 CHLORIDE 103 mmol/L 98-107 CO2 24 mmol/L 22-29 CALCIUM 9.2 mg/dL 8.4-10.2 MAGNESIUM 1.9 mg/dL 1.6-2.6 ANION GAP 8 mmol/L 5-15 .CREAT EGFR(CKD-EPI) >90 >60 Jun 24, 2024 09:50 AM [facility] CBC Specimen Type: BLOOD Comment: Specimen received in Lab at: 0948 Ordering Provider: JEVON ZAZUETA Report Released Date/Time: Jun 23, 2024 06:07 PM Reporting Lab: [facility] [address] Performing Lab: [facility] [address] WBC 15.5 H 4.0-11.0 RBC 4.93 4.60-6.20 HGB 15.2 g/dL 13.5-17.9 HCT 46.5 41.0-54.0 MCV 94.3 fL 80.0-100.0 MCH 30.8 pg 27.0-33.0 MCHC 32.7 g/dL 32.0-37.5 PLT 223 150-400 MPV 11.4 fL 9.1-13.0 RDW 13.9 11.5-14.5 Jun 23, 2024 07:52 AM [facility] COMPREHENSIVE METABOLIC PANEL+MG Specimen Type: PLASMA No comment entered. Ordering Provider: JEVON ZAZUETA Report Released Date/Time: Jun 22, 2024 05:51 PM Reporting Lab: [facility] [address] Performing Lab: [facility] [address] CREATININE 0.7 mg/dL 0.7-1.2 UREA NITROGEN 16 [...] >90 >60 Jun 23, 2024 07:52 AM [facility] CBC & DIFF Specimen Type: BLOOD Comment: Automated Differential Performed Ordering Provider: JEVON ZAZUETA Report Released Date/Time: Jun 22, 2024 05:51 PM Reporting Lab: [facility] [address] Performing Lab: [facility] [address] WBC 14.9 H 4.0-11.0 RBC 5.09 4.60-6.20 [...] 0.1 0.0-0.1 Jun 22, 2024 06:10 PM [facility] CBC Specimen Type: BLOOD No comment entered. Ordering Provider: JEVON ZAZUETA Report Released Date/Time: Jun 22, 2024 05:51 PM Reporting Lab: [facility] [address] Performing Lab: [facility] [address] WBC 16.9 H 4.0-11.0 RBC 5.28 4.60-6.20 HGB 16.9 g/dL 13.5-17.9 HCT 50.4 41.0-54.0 MCV 95.5 fL 80.0-100.0 MCH 32.0 pg 27.0-33.0 MCHC 33.5 g/dL 32.0-37.5 PLT 223 150-400 MPV 10.9 fL 9.1-13.0 RDW 14.0 11.5-14.5 Jun 22, 2024 06:10 PM [facility] COMPREHENSIVE METABOLIC PANEL+MG Specimen Type: PLASMA No comment entered. Ordering Provider: JEVON ZAZUETA Report Released Date/Time: Jun 22, 2024 05:51 PM Reporting Lab: [facility] [address] Performing Lab: [facility] [address] CREATININE 0.7 mg/dL 0.7-1.2 UREA NITROGEN 17 [...] >90 >60 Jun 21, 2024 06:48 PM [facility] URINALYSIS Specimen Type: URINE No comment entered. Ordering Provider: DELIA MARTINEZ Report Released Date/Time: Jun 21, 2024 05:45 PM Reporting Lab: [facility] [address] Performing Lab: [facility] [address] URINE COLOR YELLOW SPECIFIC GRAVITY 1.041 H [...] 500 NEGATIVE Jun 21, 2024 05:34 PM [facility] POC CREATININE Specimen Type: BLOOD No comment entered. Ordering Provider: DELIA MARTINEZ Report Released Date/Time: Jun 21, 2024 06:07 PM Reporting Lab: [facility] [address] Performing Lab: [facility] [address] POC CREATININE 1.1 mg/dL 0.6-1.3 Jun 21, 2024 05:30 PM [facility] POC ABG/LACTATE Specimen Type: VENOUS BLOOD No comment entered. Ordering Provider: DELIA MARTINEZ Report Released Date/Time: Jun 21, 2024 06:07 PM Reporting Lab: [facility] [address] Performing Lab: [facility] [address] POC PH 7.470 H 7.31-7.41 POC PCO2 31.2 mm[Hg] L 41.00-51 .0 0 POC PO2 46 mm[Hg] H 35.0-40.0 POC TCO2 24 mmol/L 24.0-29.0 POC HCO3 22.7 mmol/L L 23.0-28.0 POC BE ECT -1 mmol/L POC SO2 85 H 70-75 POC LACTATE 1.85 mmol/L 0.90-1.70 Jun 21, 2024 05:24 PM [facility] PROTHROMBIN TIME/INR Specimen Type: PLASMA No comment entered. Ordering Provider: DELIA MARTINEZ Report Released Date/Time: Jun 21, 2024 05:30 PM Reporting Lab: [facility] [address] Performing Lab: [facility] [address] .INR 1.2 H 0.8-1.1 .PT 13.9 s H 9.4-12.5 Jun 21, 2024 05:24 PM [facility] LIPASE Specimen Type: PLASMA No comment entered. Ordering Provider: DELIA MARTINEZ Report Released Date/Time: Jun 21, 2024 05:30 PM Reporting Lab: [facility] [address] Performing Lab: [facility] [address] LIPASE 32 U/L <60 Jun 21, 2024 05:24 PM [facility] EXTRA GOLD GEL TUBE Specimen Type: SERUM No comment entered. Ordering Provider: DELIA MARTINEZ Report Released Date/Time: Jun 21, 2024 05:41 PM Reporting Lab: [facility] [phone] Performing Lab: [facility] [phone] EXTRA GOLD GEL TUBE RECEIVED Jun 21, 2024 05:24 PM [facility] COMPREHENSIVE METABOLIC PANEL+MG Specimen Type: PLASMA No comment entered. Ordering Provider: DELIA MARTINEZ Report Released Date/Time: Jun 21, 2024 05:30 PM Reporting Lab: [facility] [phone] Performing Lab: [facility] [phone] CREATININE 0.9 mg/dL 0.7-1.2 UREA NITROGEN 29 [...] mg/dL <0.5 Jun 21, 2024 05:24 PM [facility] CBC & DIFF Specimen Type: BLOOD Comment: Manual Differential Performed Ordering Provider: DELIA MARTINEZ Report Released Date/Time: Jun 21, 2024 05:30 PM Reporting Lab: [facility] [id number] Performing Lab: [facility] [phone] WBC 21.3 H 4.0-11.0 RBC 5.48 4.60-6.20 [...] MORPHOLOGY PRESENT Jun 08, 2024 10:59 AM [facility] PROTHROMBIN TIME/INR Specimen Type: PLASMA No comment entered. Ordering Provider: MARYBETH POWELL Report Released Date/Time: May 28, 2024 09:02 AM Reporting Lab: [facility] [phone] Performing Lab: [facility] [phone] .INR 1.0 0.8-1.1 .PT 11.8 s 9.4-12.5 Jun 08, 2024 10:59 AM [facility] HEMOGLOBIN A1C Specimen Type: BLOOD [...] 09:02 AM Reporting Lab: [facility] [phone] Performing Lab: [facility] [phone] HEMOGLOBIN A1C 4.9 4.0-6.0 Jun 08, 2024 10:59 AM [facility] CBC Specimen Type: BLOOD No comment entered. Ordering Provider: MARYBETH POWELL Report Released Date/Time: May 28, 2024 09:02 AM Reporting Lab: [facility] [phone] Performing Lab: [facility] [phone] WBC 16.1 H 4.0-11.0 RBC 5.02 4.60-6.20 HGB 16.0 g/dL 13.5-17.9 HCT 47.1 41.0-54.0 MCV 93.8 fL 80.0-100.0 MCH 31.9 pg 27.0-33.0 MCHC 34.0 g/dL 32.0-37.5 PLT 228 150-400 MPV 10.3 fL 9.1-13.0 RDW 14.6 H 11.5-14.5 Jun 08, 2024 10:59 AM [facility] BASIC METABOLIC PANEL+MG Specimen Type: PLASMA No comment entered. Ordering Provider: MARYBETH POWELL Report Released Date/Time: May 28, 2024 09:02 AM Reporting Lab: [facility] [phone] Performing Lab: [facility] [phone] CREATININE 0.9 mg/dL 0.7-1.2 UREA NITROGEN 15 [...] Source Jun 21, 2024 11:54 PM 7 [facility] Jun 21, 2024 11:29 PM [facility] [facility] Jun 21, 2024 11:02 PM 97.9 75 130/75 17 95 7 [facility] Jun 21, 2024 04:51 PM 98.2 100 162/97 16 97 10 JAIME [facility] Social History: Smoking Status (Most [...] 15, 2024 08:30 AM [facility] Y[facility] OR MORE [facility] May 06, 2023 11:30 AM 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 [facility] May 06, 2023 11:30 [...] Provider Source Mar 23, 2016 CLINICAL WARNING AYLA TERAN [facility] Radiology Reports: +/- [...] AM CHEST 2 VIEWS PA AND LAT: MEGFLACA YAMIL [id number] -1950 M Exm Date: JUL 08, 2024@10:09 Req Phys: KATELYNN PERSON [facility] Loc: [facility]/07-08-2024@11:49 Img Loc: MAIN X-RAY Service: [place] [address] (Case 24 COMPLETE) CHEST 2 VIEWS PA AND LAT (RAD Detailed) CPT:42383 Reason for Study: Uptrending WBC, POD 5 [...] 08, 2024 Date Verified: JUL 08, 2024 Contracts Representative E-Sig: Report: CHEST 2 VIEWS PA AND [...] cardiopulmonary disease. READING PHYSICIAN: Sarbjit Vaughn M.D. -[id number] 07/08/2024 12:[address] [facility] National Teleradiology Program [phone] (For Medical Practitioner Use Only) Attention Patients / Veterans: If you have questions or concerns about these test results, please contact your ordering provider or primary care team. Primary Interpreting Staff: RADIOLOGY,OUTSIDE SERVICE, Staff Physician / RADIOLOGY,OUTSIDE SERVICE [facility] Jul 08, 2024 10:[address] (AP) ABDOMEN/PELVIS W CONTRAST: FLACA WEAVER YAMIL [id number] -1950 M Exm Date: JUL 08, 2024@10:00 Req Phys: KATELYNN PERSON [facility] Loc: [facility]/07-08-2024@12:07 Img Loc: CT IMAGING Service: [place] [address] (Case 22 COMPLETE) CT (AP) ABDOMEN/PELVIS W CONTRAST(CT Detailed) CPT:82297 Contrast Media : Non-ionic Iodinated Reason for [...] PLASMA .CREAT EGFR(CKD-E >90 Ref: >=60 Allergies: ([place] only) TERAZOSIN (Mar 13, 2015) Report Status: Verified Date Reported: JUL 08, 2024 Date Verified: JUL 08, 2024 Contracts Representative E-Sig: Report: CT (AP) ABDOMEN/PELVIS W CONTRAST [...] as noted above READING PHYSICIAN: Celestino Blanc -[phone] 07/08/2024 13:[address] [facility] ReliOn Teleradiology Program [phone] (For Medical Practitioner Use Only) Attention Patients / Veterans: If you have questions or concerns about these test results, please contact your ordering provider or primary care team. Primary Interpreting Staff: RADIOLOGY,OUTSIDE SERVICE, Staff Physician / RADIOLOGY,OUTSIDE SERVICE [facility] Jun 22, 2024 11:49 AM ABSCESS DRAIN PLACEMENT PERITONEAL (P): FLACA WEAVER [id number] -1950 M Exm Date: JUN 22, 2024@11:49 Req Phys: FAIZA SIMENTAL Loc: [facility]/06-22-2024@17:14 Img Loc: INTERVENTIONAL RADIOLOGY Service: [place] [address] (Case [id number] COMPLETE) IR PERITONEAL/RETROPERITONEAL PER(ANI Detailed) CPT:21027 Reason for Study: diverticulitis with abscess (Case [id number] COMPLETE) IR MOD SEDATION 10-22 MIN (ANI Detailed) CPT:70226 Clinical History: [place] IS NOT under investigation for COVID-19 or is COVID-19 negative 73 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 please place abscess drain. Contact number for responsible provider who can be reached for any questions or notifications of critical findings: [phone] n/a LAST CREATININE 0.9 (06/21/24) Report Status: Verified Date Reported: JUN 22, 2024 Date Verified: JUN 22, 2024 Contracts Representative E-Sig:/ES/LISA PENDLETON MD Report: PROCEDURES: Placement of [...] obtained. A pre-procedural Time-Out was performed per [facility] policy. The patient was placed in the supine position on the CT table. Preprocedural scan performed. The suprapubic region/lower abdominal wall was sterilely prepped and draped in the usual fashion.1% lidocaine without epinephrine was used for local anesthesia. Using real-time CT fluoroscopy, a 5 Swazi WebTuneresis catheter was advanced into the collection in the left pelvis. A wire was coiled in the collection. The tract into the collection was dilated to accommodate the 12 Swazi locking pigtail drainage catheter. There was return [...] Primary Interpreting Staff: LISA PENDLETON MD, RADIOLOGIST (Contracts Representative) /JRT LISA PENDLETON [facility] Jun 22, 2024 11:[address] NEEDLE PLACEMENT (P): FLACA WEAVER YAMIL [id number] -1950 M Exm Date: JUN 22, 2024@11:48 Req Phys: FAIZA SIMENTAL [facility] Loc: [facility]06-22-2024@17:14 Im Loc: CT IMAGING Service: [place] [address] (Case [id number] COMPLETE) CT SCAN FOR NEEDLE PLACEMENT (CT Detailed) CPT:97948 Reason for Study: l pelvic abscess drain Clinical History: Report Status: Verified Date Reported: JUN 22, 2024 Date Verified: JUN 22, 2024 Contracts Representative E-Sig:/ES/LISA PENDLETON MD Report: PROCEDURES: Placement of [...] obtained. A pre-procedural Time-Out was performed per [facility] policy. The patient was placed in the supine position on the CT table. Preprocedural scan performed. The suprapubic region/lower abdominal wall was sterilely prepped and draped in the usual fashion.1% lidocaine without epinephrine was used for local anesthesia. Using real-time CT fluoroscopy, a 5 Swazi WebTuneresis catheter was advanced into the collection in the left pelvis. A wire was coiled in the collection. The tract into the collection was dilated to accommodate the 12 Swazi locking pigtail drainage catheter. There was return [...] Primary Interpreting Staff: LISA PENDLETON MD, RADIOLOGIST (Contracts Representative) /JRT LISA PENDLETON [facility] Jun 21, 2024 06:[address] (AP) ABDOMEN/PELVIS (P): FLACA WEAVER [id number] -1950 Exm Date: JUN 21, 2024@18:09 Req Phys: DELIA MARTINEZ Loc: [facility] EMERGENCY DEPT WALK-IN (Re [facility] Loc: CT IMAGING Service: [place] [address] (Case [id number] COMPLETE) CT (AP) ABDOMEN/PELVIS W CONTRAST(CT Detailed) CPT:47775 Contrast Media : Non-ionic Iodinated Reason for [...] PLASMA .CREAT EGFR(CKD-E >90 Ref: >=60 Allergies: ([place] only) TERAZOSIN (Mar 13, 2015) Defer to [...] 21, 2024 Date Verified: JUN 21, 2024 Contracts Representative E-Sig:/ES/CARLOS A CUNNINGHAM DO Report: EXAMINATION: CT [...] Interpreting Staff: CARLOS A CUNNINGHAM DO, RADIOLOGIST (Contracts Representative) /CARLOS A ROWELL [facility] May 25, 2024 09:00 AM IR FISTULOGRAM OR SINOGRAM : MEGFLACADARCI LOBO [id number] -1950 Ex Date: MAY 25, 2024@09:00 Req Phys: AMINTA PRUITT Loc: [facility] INTERVENTIONAL RADIO Img Loc: INTERVENTIONAL RADIOLOGY Service: [place] [address] (Case [id number] COMPLETE) IR FISTULOGRAM OR SINOGRAM (ANI Detailed) CPT:54608 Contrast Media : unspecified contrast media Reason for Study: s/p drain placement for diverticular abscess- assess for drain Clinical History: [place] IS NOT under investigation for COVID-19 or [...] 25, 2024 Date Verified: MAY 25, 2024 Contracts Representative E-Sig:/ES/DAVID BURNS MD Report: PROCEDURES 05/25/2024 9:48 [...] Primary Interpreting Staff: DAVID BURNS MD, RADIOLOGIST (Contracts Representative) /[facility] DAVID BURNS [facility] May 25, 2024 08:[address] (AP) ABDOMEN/PELVIS (P): FLACA WEAVER [id number] -1950 M Exm Date: MAY 25, 2024@08:23 Req Phys: DAVID BURNS Pat Loc: [facility] X[facility] INTERVENTIONAL RADIO Img Loc: CT IMAGING Service: [place] [address] (Case [id number] COMPLETE) CT (AP) ABDOMEN/PELVIS W/O CONTRA(CT Detailed) CPT:41483 Reason for Study: assess abscess and possible drain removal Clinical History: no contrast per stampe Per Joint Commission Standards, by signing this diagnostic imaging request the ordering provider confirms they have considered patients age and recent imaging history. Defer to radiologist for final CT protocol. Contact number for responsible provider who can be reached for any questions or notifications of critical findings: 2935 stampe LAST 3: Collection DT Specimen Test [...] PLASMA .CREAT EGFR(CKD-E >90 Ref: >=60 Allergies: ([facility]) TERAZOSIN (Mar 13, 2015) Report Status: Verified Date Reported: MAY 25, 2024 Date Verified: MAY 25, 2024 Contracts Representative E-Sig:/ES/JOEY GOODMAN MD Report: EXAM: CT abdomen and pelvis without intravenous contrast. 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 TECHNIQUE: Helical acquisition of image data was performed for the abdomen and pelvis without intravenous contrast. Dose: 512.57 mGy*cm COMPARISON: CT abdomen pelvis with contrast 05/11/[address] abdomen pelvis 04/23/2024.; CT abdomen pelvis 05/05/2020 FINDINGS: TECHNOLOGY APPLICATIONS TEACHER: Pigtail catheter projecting over the left hemipelvis [...] right and 2.1 cm on the left. IJoey, have reviewed the images and report. Primary Interpreting Staff: JOEY GOODMAN MD, RADIOLOGIST (Contracts Representative) Primary Interpreting Resident: YOHANNES MELO DO, AUTOMATION CLERK /JOEY OLUIE [facility] Pathology Reports: +/- 30 [...] JUL 06, 2024@10:40:48 AUTHOR: EDUARDO PALOMARES EXP JULIANAIGNER: URGENCY: STATUS: COMPLETED $APHDR Reporting Lab: [facility] [CLIA# [id number]] [facility] [place] [address] - - - - - - - [...] - PATHOLOGY REPORT Accession No. [id number] - - - - - - - [...] - PATHOLOGY REPORT Accession No. [id number] - - - - - - - [...] Second circumferential surgical margin, en face; E-F: Gasoline Tester diverticula; G: Gasoline Tester section of mesentery; H: Random patient relations representative section of additional adipose tissue fragment. [...] colonic tissue ring, bisected transversely. SS. (D[place] [place] DES[place]: Microscopic examination performed. DIAGNOSIS: 1. Colon, sigmoid, sigmoidectomy-- - Diverticulosis with perforation and focal abscess formation 2. Colon, anastomotic rings, excision-- - Viable colonic mucosa without diagnostic abnormality /alexi/ EDUARDO PALOMARES MD STAFF PATHOLOGIST Signed Jul 06, 2024@10:40 Performing Laboratory: Surgical Pathology Report Performed By: [facility] [CLIA# [id number]] [place] [address] $FTR - - - - - - [...] - - FLACA WEAVER STANDARD FORM 515 ID:[id number] SEX:M :1950 AGE: 73 LOC:06023 ADM:Jun DX:DIVERTICULITIS PCP: Prema Cabrera /alexi/ EDUARDO PALOMARES MD STAFF PATHOLOGIST Signed: 07/06/2024 10:40 EDUARDO PALOMARES [facility] Jun 22, 2024 01:15 PM LR MICROBIOLOGY RE PORT: Reporting Lab: [facility] [CLIA# [id number]] [place] [address] Accession [UID]: [id number] [[id number]] Received: Jun 22, 2024@13:38 Collection sample: FLUID Collection date: Jun 22, 2024 13:15 Provider: FAIZA SIMENTAL Comment on specimen: LLQ ABSCESS, RECEIVED IN ANAEROBIC TRANSPORT VIAL Test(s) ordered: GRAM STAIN.................... completed: Jun 22, 2024 15:03 CULTURE & SUSCEPTIBILITY...... completed: Jun 25, 2024 * BACTERIOLOGY FINAL REPORT => Jun 25, 2024 10:56 TECH CODE: [id number] GRAM STAIN: DIRECT SMEAR of specimen before [...] -=--=--=--=--=--=--=-- Performing Laboratory: Bacteriology Report Performed By: [facility] [CLIA# [id number]] [place] [address] [facility] Jun 22, 2024 01:15 PM LR MICROBIOLOGY RE PORT: Reporting Lab: [facility] [CLIA# [id number]] [place] [address] Accession [UID]: [id number] [[id number]] Received: Jun 22, 2024@13:38 Collection sample: FLUID Collection date: Jun 22, 2024 13:15 Provider: FAIAZ SIMENTAL Comment on specimen: LLQ ABSCESS, RECEIVED IN ANAEROBIC TRANSPORT VIAL Test(s) ordered: ANAEROBIC CULTURE............. completed: Jun 28, 2024 * BACTERIOLOGY FINAL REPORT => Jun 28, 2024 10:08 TECH CODE: [id number] CULTURE RESULTS: HEAVY GROWTH MIXED ANAEROBES Comment: including the followin+ Bacteroides fragilis 4+ Bacteroides vulgatus 4+ Clostridium innocuum Beta-lactamase negative 4+ Bacteroides caccae 4+ Parvimonas micra 4+ Bacteroides uniformis 4+ Gemella morbillorum 4+ anaerobic small, Gram Positive Rods 4+ Bacteroides thetaiotaomicron Standard workup is now complete. Bacteriology Remark(s): THIS REPORT IS FINAL =--=--=--=--=--=--=--=--=--= --=--=--=--=--=--=--=--=--=- -=--=--=--=--=--=--=-- Performing Laboratory: Bacteriology Report Performed By: [facility] [CLIA# [id number]] [place] [address] [facility] Jun 21, 2024 06:12 PM LR MICROBIOLOGY RE PORT: Reporting Lab: [facility] [CLIA# [id number]] [place] [address] Accession [UID]: [id number] [[id number]] Received: Jun 21, 2024@18:12 Collection sample: BLOOD [...] -=--=--=--=--=--=--=-- Performing Laboratory: Bacteriology Report Performed By: [facility] [IA# [id number]] [place] [address] [facility] Jun 21, 2024 06:11 PM LR MICROBIOLOGY RE PORT: Reporting Lab: [facility] [IA# [id number]] [place] [address] Accession [UID]: [id number] [[id number]] Received: Jun 21, 2024@18:11 Collection sample: BLOOD [...] -=--=--=--=--=--=--=-- Performing Laboratory: Bacteriology Report Performed By: [facility] [IA# [id number]] [place] [address] [facility] Jun 08, 2024 11:00 AM LR MICROBIOLOGY RE PORT: Reporting Lab: [facility] [IA# [id number]] [place] [address] Accession [UID]: [id number] [[id number]] Received: Jun 08, 2024@11:00 Collection sample: URINE Collection date: Jun 08, 2024 11:00 Provider: MARYBETH POWELL Comment on specimen: urine Test(s) ordered: CULTURE & SUSCEPTIBILITY...... completed: Jun 09, 2024 * BACTERIOLOGY FINAL REPORT => Jun 09, 2024 19:12 TECH CODE: [id number] CULTURE RESULTS: ESCHERICHIA COLI - Quantity: >100,000 [...] -=--=--=--=--=--=--=-- Performing Laboratory: Bacteriology Report Performed By: [facility] [CLIA# [id number]] [place] [address] [facility] Encounter Notes: All associated encounter notes This section contains the clinical notes associated to the Encounter. Date/Time Encounter Note(s) Provider Source Jun 25, 2024 09:24 AM NURSING DISCHARGE NOTE: LOCAL TITLE: [facility] NURSING DISCHARGE SUMMARY STANDARD TITLE: NURSING DISCHARGE NOTE DATE OF NOTE: JUN 25, 2024@09:24 ENTRY DATE: JUN 25, 2024@09:24:29 AUTHOR: NADEEM TRUJILLO EXP COSIGNER: URGENCY: STATUS: COMPLETED Nursing Discharge Summary Home Discharge date and time: May@09:00 Accompanied by: Self, Family Ambulatory Transportation: Other (specify): Brother Verify that the Contact Name and Phone Number are correct: FLACA WEAVER Condition: Alert Skin Condition: Intact Incision: Yes, describe: JUAN drain, leaking Education/Teach Back Patient and/or Caregiver was given dubon information in discharge instruction and able to teach back verbally or by return demonstration. Yes, demonstrated understanding Does patient have vascular access? Yes Peripheral IV Removed Does patient require assistance with outpatient visits due to cognitive limitations, mobility limitations, or has need for nursing assistance throughout the clinic day? Patient DOES NOT have an active JOSÉ flag assigned. No Wristband Removal:Patient refuses to have wristband removed at discharge. Patient was educated on the risk of improper disposal and patient wristband containing PII and PHI. When VA wristband is removed destroy the wristband by using a shredding machine, marking, or cutting the sensitive information that renders the band not readable or re-constructible to any degree. /alexi/ NADEEM TRUJILLO RN Signed: 06/25/2024 09:26 NADEEM TRUJILLO [facility] Jun 25, 2024 09:20 AM DISCHARGE SUMMARY: LOCAL TITLE: Discharge Summary STANDARD TITLE: DISCHARGE SUMMARY DICT DATE: JUN 25, 2024@09:40 ENTRY DATE: JUN 25, 2024@09:40:25 DICTATED BY: KATELYNN PERSON ATTENDING: WENCESLAO ARREDONDO URGENCY: routine STATUS: COMPLETED Discharge Summary DRAFT UNTIL SIGNED BY ATTENDING Admission Date: May Discharge Date: May Discharge Destination: Home PRIMARY DIAGNOSIS: Diverticulitis OPERATIVE/INVASIVE PROCEDURES: 06/22 - CT guided abscess drain placement CONSULTS: Interventional Radiology Infectious Disease BRIEF SUMMARY OF H&P: 74 y/o M with h/o CAD, HLD, HTN, CKD, HFrEF, and known diverticulitis complicated by colovesicular fistula and abscess formation requiring a drain in March 2024 who was admitted for recurrent diverticulitis with fluid collection measuring up to 4.9 cm now s/p drain placement by IR on 06/22. EXAM AT THE TIME OF DISCHARGE: Temp: 98.3 F [36.8 C] (06/23/2024 00:06) Pulse: 56 (06/23/2024 00:06) BP: 116/59 (06/22/2024 13:40) Resp: 16 (06/23/2024 00:06) O2 sat: 99% (06/23/2024 00:06) DISCHARGE INFORMATION: Disposition on discharge, diet, physical activity, and follow-up care orders are included in the discharge orders. Diet: Regular Physical Activity: No restriction MEDICATION CHANGES: See the [facility] Med Instruction/Reconciliation note for a complete medication list. FOLLOW UP: Surgery - 07.03.2024 More than 30 minutes was spent on discharge management services and coordination of care for this . /alexi/ KATELYNN PERSON PLASTIC/RESIDENT Signed: 06/25/2024 09:47 /alexi/ WENCESLAO ARREDONDO MD STAFF SURGEON, COLON/RECTAL Cosigned: 06/25/2024 10:35 KATELYNN PERSON [facility] Jun 25, 2024 09:10 AM EDUCATION DISCHARGE NOTE: LOCAL TITLE: EDUCATION NURSING DISCHARGE INSTRUCTIONS STANDARD TITLE: EDUCATION DISCHARGE NOTE DATE OF NOTE: JUN 25, 2024@09:10 ENTRY DATE: JUN 25, 2024@09:10:27 AUTHOR: NADEEM TRUJILLO EXP COSIGNER: URGENCY: STATUS: COMPLETED IMPORTANT PHONE NUMBERS: Discharge Order : Discharge Date: Jun 25, 2024 Discharge To Home . Discharge Type: Hospital Discharge . DC Summary Dictated: YES Dictating Provider: KATELYNN PERSON Attending Physician: WENCESLAO ARREDONDO Discharge Diagnosis: Diverticulitis Discharge Condition: Good Discharge Order : Restrictions/Instructions Lifting: No Restriction . Working: No Restriction . Bathing: No Restriction . Stairs: No Restriction . Driving: Restriction . Sexual Activity: No Restriction Dietary: No Restriction . NSAID or Aspirin: No Restriction . Wound Condition: N/A Discharge Order Schedule Follow up Appt in Clinic (name & timeframe) : Meg Pruett, Follow up in 1 week IF YOU HAVE A LIFE THRE[facility]ING EMERGENCY CALL 911 If you have questions about anything related to your inpatient care at the [facility] or your future care in the [facility], call the Call Center or After Hour numbers listed below. If you receive care at another [place] facility or with a community provider, you will need to call them for questions about your future care. -Call Center Tuesday-Tuesday, 7:30-4:30 at [phone] or Toll Free -After Hours- toll-free -Outpatient Pharmacy - -Verification of Appointments for the following month - Other diagnosis/instructions: DC instructions Patient and/or other caregiver has had an opportunity to participate in the development of the discharge plan. The patient had an opportunity to ask questions. While in the hospital you were treated for: Hemorrhoidectomy Attending Physician: WENCESLAO ARREDONDO You are being discharged to: Home Phone number you can be contacted at for the next 2 weeks: Your diet is Reg Continuing care needs: If you receive care at [facility] you will need to call the Primary Care Call Center number at [phone]. If you receive care at another [facility] or community provider, you will need to call them to arrange your follow up care. Future appointments: 06/27/2024 07:00 [facility] LAB BLOOD DRAWING TAL INPATIENT APPOINTMENT 06/27/2024 07:30 [facility] EKG LAB 3M INPATIENT APPOINTMENT 06/27/2024 08:00 [facility] CARDIAC AEU CONSULT # INPATIENT APPOINTMENT 07/03/2024 05:55 [facility] ADMISSIONS SURGERY INPATIENT APPOINTMENT 07/03/2024 06:00 [facility] 2T PRE-ADMISSION INPATIENT APPOINTMENT A copy of these instructions has been given to: Patient IM - Immunizations ADMINISTERED Immunization Series Date Facility Reaction Info COVID-19 (PFIZER), MRNA, LNP-S, * 1 10/25/2022 [place] COVID-19 (PFIZ[place]), MRNA, LNP-S, * 01/21/2022 [facility] [facility] COVID-19 (PFIZER), MRNA, LNP-S, * 3 07/10/2021 [place] COVID-19 (PFIZER), MRNA, LNP-S, * 2 11/22/2020 [place] COVID-19 (PFIZER), MRNA, LNP-S, * 1 11/01/2020 [place] COVI-19 (PFIZER), MRNA, LNP-S, * 4 01/21/2022 [place] COVID-19 (PFIZER), MRNA, LNP-S, * 01/30/2024 [place] INFLUENZA, ADJUVANTED, QUADRIVAL* 06/04/2022 [place] INFLUENZA, HIGH-DOSE, TRIVALENT,* 05/15/2024 [place] INFLUENZA, HIGH-DOSE, TRIVALENT,* 06/02/2017 [place] INFLUENZA, SPLIT VIRUS, QUADRIVA* 07/10/2021 [place] INFLUENZA, SPLIT VIRUS, QUADRIVA* 05/23/2020 [place] INFLUENZA, SPLIT VIRUS, TRIVALEN* 06/14/2019 [place] INFLUENZA, SPLIT VIRUS, TRIVALEN* 06/06/2018 [place] INFLUENZA, SPLIT VIRUS, TRIVALEN* 06/24/2015 [place] INFLUENZA, UNSPECIFIED FORMULATI* 06/04/2022 [facility] [facility] INFLUENZA, UNSPECIFIED FORMULATI* 06/14/2019 [facility] INFLUENZA, UNSPECIFIED FORMULATI* 05/13/2011 [place] PNEUMOCOCCAL CONJUGATE PCV 13 02/25/2017 [place] PNEUMOCOCCAL POLYSACCHARIDE PPV23 03/22/2019 [place] PNEUMOCOCCAL POLYSACCHARIDE PPV23 02/26/2014 [place] PNEUMOCOCCAL, UNSPECIFIED FORMUL* 02/26/2014 [place] TDAP 11/17/2021 [place] TDAP 05/13/2011 [place] ZOSTER LIVE 02/26/2014 [place] ZOSTER RECOMBINANT 2 01/21/2022 [place] ZOSTER RECOMBINANT 1 11/17/2021 [place] ZOSTER, UNSPECIFIED FORMULATION 01/21/2022 [facility] [facility] ZOSTER, UNSPECIFIED FORMULATION 11/17/2021 [facility] CONTRAINDICATED No data available REFUSED ======= No data available See the Detailed Immunizations Health Summary Component[DIM] for Comments * Value is truncated; see the Detailed Immunizations Health Summary Component[DIM] for complete text Copy of PROVIDERS DISCHARGE ORDERS Nursing: Screen patient within 24 hours prior to discharge for suiciderisk, using the Cottle-Suicide Severity Rating Scale (C-SSRS). If theC-SSRS results in a positive screen, provide warm hand off to responsibleprovider to complete the Suicide Risk Evaluation-Comprehensive (CSRE)prior to discharge. Stroke/CVA/TIA this admit or h/o? No *'S CRISIS LINE NUMBER IS (TALK)* Discharge from ICU, Acute Care, Acute Rehab, or CLC C-SSRS Screening Cottle Suicide Severity Rating Scale (C-SSRS) screener 1.?Over the past month, have you wished you were or wished you could go to sleep and not wake up? No 2.?Over the past month, have you had any actual thoughts of killing yourself? No 3.?Over the past month, have you been thinking about how you might do this? Response not required due to responses to other questions. 4.?Over the past month, have you had these thoughts and had some intention of acting on them? Response not required due to responses to other questions. 5.?Over the past month, have you started to work out or worked out the details of how to kill yourself? Response not required due to responses to other questions. 6.?If yes, at any time in the past month did you intend to carry out this plan? Response not required due to responses to other questions. 7.?In your lifetime, have you ever done anything, started to do anything, or prepared to do anything to end your life (for example, collected pills, obtained a gun, gave away valuables, went to the roof but didn't jump)? No 8.?If YES, was this within the past 3 months? Response not required due to responses to other questions. Written education reviewed and given on: /alexi/ NADEEM TRUJILLO RN Signed: 06/25/2024 09:15 NADEEM TRUJILLO [facility] Jun 25, 2024 09:04 AM CONSENT: LOCAL TITLE: CONSENT CLINICAL IMED STANDARD TITLE: CONSENT DATE OF NOTE: JUN 25, 2024@09:04:52 ENTRY DATE: JUN 25, 2024@09:05:14 AUTHOR: CHANEL HEREDIA EXP COSIGNER: URGENCY: STATUS: COMPLETED VistA Imaging - Scanned Document Signature Informed Consent for Colon - Colectomy Segmental (Noncancerous) (Laparoscopic) (Segmental Colectomy Noncancerous (Laparoscopic)) 1. Anatomical Location: Abdomen 2. Informed consent was obtained at 9:02 AM on 06/25/24. The full consent document can be accessed through [employer]. 3. Patient name: FLACA WEAVER 4. The patient HAS decision-making capacity. 5. Surrogate (if applicable): 6. Reason for the treatment (diagnosis, condition, or indication): Disease, infection, blockage, or injury to the colon. 7. Treatment/procedure: This procedure involves removing the diseased or damaged part of the colon. This procedure involves removing parts or the majority of the colon. The procedure is performed through small incisions with the use of a laparoscope. Laparoscopic surgery is done using a scope and several very small cuts called ports. A scope is a thin, lighted instrument with a camera attached. It lets the surgeon see inside the abdomen. The surgeon can pass tools through the ports, or see tools inserted through other ports. Carbon dioxide gas is pumped into the abdomen. This helps the surgeon see inside the abdomen. It also gives more room to work. Your doctor may not be able to complete the procedure using a scope or robotics. If the surgery is not done with a scope, it may be done through a larger cut. Once the diseased or damaged part of the colon is removed, the remaining healthy intestine on either side is joined together with surgical jeannine or stitches. Alternatively, your surgeon may create an ostomy by making an opening in the abdominal wall (stoma) which allows your bowel movements to drain to a separate pouch outside of the body. The inside of your abdomen will be washed with a sterile solution. Your surgeon will close the incisions with stitches and/or jeannine. In some situations, a drain may be inserted to keep fluid from building up in the treatment area. Your surgeon will remove the drain some time after the surgery. 8. Anesthesia will be administered. A member of the anesthesia care team will visit you before your treatment to discuss the type(s) of anesthesia you may need and to give you more information about anesthesia. It may become necessary to alter your anesthesia care plan after this discussion. Devices may be applied to your body and placed in your veins and arteries to monitor you during your anesthesia. All forms of anesthesia involve some risk. Minor (not life-threatening) risks include: nausea, vomiting, and pain where an injection is given. Although rare, severe complications include: injury to blood vessels, drug reactions, bleeding, blood clots, loss of sensation or limb function, infection, paralysis, stroke, brain damage, heart attack, and . Here is a basic description of the major types of anesthesia including their risks in addition to those described above: General anesthesia involves drugs that are injected into the bloodstream or breathed into the lungs. A tube or other device may be inserted into your airway to help you breathe. The expected benefit is that you will be totally unconscious and you will not feel pain during the procedure. Additional risks include: injury to the teeth, throat, eyes, or lung. In less than one case in a thousand, patients may be aware of activities during their surgery. Spinal or epidural analgesia/anesthesia involves a drug being injected through a needle or catheter placed into the spinal canal. The expected benefit is a temporary decreased feeling in the area of surgical incision, allowing surgery to proceed without pain. Additional risks include: headache, backache, convulsions, persistent weakness and or numbness, abnormal heart rhythms, and incomplete pain relief during the operation that may require general anesthesia. Major/minor nerve block involves a drug being injected near nerves providing loss or reduction of sensation and movement to the area. The expected benefit is a temporary loss of feeling and/or movement of a specific limb or area of your body. Additional risks include: convulsions, persistent weakness and or numbness, and incomplete pain relief during the operation that may require general anesthesia. Monitored anesthesia care involves monitoring of the heart and lungs to make sure that they are functioning adequately during your procedure. A local anesthetic will be injected to prevent pain, and the anesthesia care provider may use drugs to help you relax, and lessen any pain. You may remain conscious throughout your procedure, or you may be given medications that will make you unconscious. The expected benefit is that you will be comfortable during your operation with a minimum amount of anesthesia. This may result in a shorter stay in the hospital. Additional risks include: incomplete pain relief during the operation that may require additional anesthesia. Convulsions from the injected drug are a rare but serious complication. 9. Consent to Blood Products (if applicable): I CONSENT to the use of blood products during this treatment/procedure if they are needed. I understand that the benefit of blood products is that they may improve my overall condition or save my life. I understand that my consent for use of blood products is valid while I recover from the treatment/procedure. My provider will determine when this recovery period ends. If this consent form expires, my treatment plan changes, or if blood products are needed for a reason that is unrelated to this treatment/procedure, I will be asked again for my consent for use of blood products. I understand that common risks of using blood products include (but are not limited to) infection or irritation where the needle is placed, fever, chills, and skin rashes. Other rare but more serious complications may occur such as allergic reactions, heart failure due to fluid overload, acute pulmonary edema (fluid leaking into the lungs), shock, or . I also understand that transfusions of blood or blood products involve a small risk of transmission of diseases such as Hepatitis B (1 in 137,000), Hepatitis C (1 in 1,000,000), and HIV/AIDS (1 in 1,900,000). There is also a small risk of bacterial infection when blood platelets are transfused. Alternatives to blood or blood products may be available if my health, time, and procedure permit. These alternatives may include auto-donation (using my own previously donated blood) and intra-operative salvage (my own blood collected during surgery). In addition, medications may be used to reduce the need for blood products. 10. Practitioner obtaining consent: Katelynn Person 11. Supervising practitioner: Wenceslao Arredondo MD 12. Practitioner(s) performing or supervising treatment/procedure (if not listed above): 13. Witness Name(s): 14. Comments: SCANNED DOCUMENT SIGNATURE NOT REQUIRED Electronically Filed: 06/25/2024 by: CHANEL HEREDIA,CHANEL [facility] Jun 25, 2024 08:40 AM NURSING INPATIENT NOTE: LOCAL TITLE: [facility] NURSING PROGRESS NOTE STANDARD TITLE: NURSING INPATIENT NOTE DATE OF NOTE: JUN 25, 2024@08:40 ENTRY DATE: JUN 25, 2024@08:40:27 AUTHOR: AL WEST COSIGNER: URGENCY: STATUS: COMPLETED Nursing Shift Note Nursing care provided from [id number] Highlights from shift: [place] alert and orientated X4 and able to make his own decisions. Lungs sounds clear. Heart sounds regular. Bowel sounds active; reports loose bowel movement yesterday 06/24/24. Abdomen tender to touch. Declined full assessment. JUAN to LLQ- has been draining via self. Voiding via bathroom. [place] reports this [place] hospital is terrible. My day nurse was a drunk. It was obvious he came to work and was out drinking the night before. This place is full of people just like this and no one around here seems to care. Then Dr. Powell. She is a horrible excuse of a surgeon or doctor. I never want to see that c*nt again. She needs to stay away from me. It's like all you guys do here is cover for each other and make excuses. Just like you guys do with Dr. Powell and your lazy coworkers. Dr. Powell can't even get my diet right. I have diverticulitis and she orders a diet that has corn and strawberries in it. What a stupid b*tch. It's clearly obvious if I want good care I need to get to [facility] as soon as I get out of this place. Reno did allow this news writer to check his vitals around 0200 and his BP was elevated at 181/83. Reno became upset over this and immediately said Paulette. These [place] doctors here have no clue what they are doing. I need my home blood pressure medications. I don't give a crap what they say, I am taking them now. Gregoria did not want to listen to any education about how home medications should not be taken in hospital without prescription and providers being aware. He stated he is taking it regardless as he knows his body and asked this news writer to come back in 1 hour to check his BP. BP check in 1 hour was 136/59. Patient adamant his is discharging at 0900. Providers updated of night and patient request of discharge. See ICCA for detailed assessment, Education provided on medication/cares this shift as needed Assessment Type: SKIN REINSPECTION/REASSESSMENT SKIN INSPECTION: Skin Color: Usual for ethnicity Skin Temperature: Warm Skin Moisture: Normal Skin Turgor: Elastic (normal/immediate) INTERVENTIONS: No change in previous interventions as listed below Vaaes Pressure Injury Interventions 06/24/2024 Vaaes Pressure Injury Int Not Needed RISK FACTORS THAT INCREASE RISK FOR DEVELOPING PRESSURE INJURIES: The patient/resident has the following: Device(s): (nasogastric tubes, oxygen tubing, urinary catheters, cell phone etc.) Comment: JUAN drain LLQ Incision and Flaps: Incision 1: Location: JUAN site LLQ- intact Wound drainage none. Skin Interventions performed this shift: Patient turned [id number] or as appropriate while in bed. Head of Bed kept below 30 degrees unless otherwise ordered. /alexi/ SAMMY Castillo, RN Registered Nurse, Signed: 06/25/2024 09:01 AL WEST [facility] Jun 25, 2024 07:50 AM COLON & RECTAL SURGERY ATTENDING NOTE: LOCAL TITLE: COLON-RECTAL INPT STAFF NOTE STANDARD TITLE: COLON & RECTAL SURGERY ATTENDING NOTE DATE OF NOTE: JUN 25, 2024@07:50 ENTRY DATE: JUN 25, 2024@07:50:34 AUTHOR: MARYBETH POWELL EXP COSIGNER: URGENCY: STATUS: COMPLETED COLON-RECTAL INPT STAFF NOTE Has ADDENDA As soon as I walkted into the room the patient yelled at me to get out and called me a c*nt. He blames me for getting corn and strawberries last night for dinner. He in no uncertain terms stated that he does not want to see me or talk to me. He also insists that he is leaving at 9am this morning. I was able to ask the patient if he would like to continue to see my partner Dr. Arredondo and he said yes. I also informed him that I will try to keep his surgery on the day that it is scheduled, but will have Dr. Arredondo do his surgery. /alexi/ MARYBETH POWELL MD STAFF SURGEON, COLON/RECTAL Signed: 06/25/2024 07:53 Receipt Acknowledged By: 06/27/2024 12:56 /alexi/ Prema Cabrera MD Physician 06/27/2024 14:29 /alexi/ WENCESLAO ARREDONDO MD STAFF SURGEON, COLON/RECTAL 06/29/2024 13:05 /es/ EDUARDO QUEEN, ROSALIND REGISTERED NURSE for RAMIRO FABIAN 06/27/2024 ADDENDUM STATUS: COMPLETED DBR report filed on Dr Powell's behalf /alexi/ Prema Cabrera MD Physician Signed: 06/27/2024 13:01 MARYBETH POWELL [facility] Jun 24, 2024 09:59 PM NURSING INPATIENT NOTE: LOCAL TITLE: [facility] NURSING PROGRESS NOTE STANDARD TITLE: NURSING INPATIENT NOTE DATE OF NOTE: JUN 24, 2024@21:59 ENTRY DATE: JUN 24, 2024@21:59:58 AUTHOR: STEFFANIE GRAVES COSIGNER: URGENCY: STATUS: COMPLETED Nursing Shift Note Nursing care provided from [phone] Highlights from shift: Alert and oriented x4. Irritable, beligerant. Uses profanity towards staff. VSS. Pain well-controlled with Tylenol. JUAN with minimal output. Patient states he is leaving in the AM no matter what, I don't care if my medications are ready or not. Very upset with dinner meal, which included corn, rice, taco. Don't you fucking people know I have diverticulitis?. Able to get alternative tray for dinner meal, which included seedless fruit, mashed potatoes and gravy, soup. Uses call light to make needs known. See ICCA for detailed assessment Assessment Type: SKIN REINSPECTION/REASSESSMENT SKIN INSPECTION: Skin Color: Usual for ethnicity Skin Temperature: Warm Skin Moisture: Normal Skin Turgor: Elastic (normal/immediate) INTERVENTIONS: No change in previous interventions as listed below 06/24/2024 Vaaes Pressure Injury Int Not Needed RISK FACTORS THAT INCREASE RISK FOR DEVELOPING PRESSURE INJURIES The patient/resident does not have any additional risk factors. Wound - other than pressure ulcer/injury (includes open surgical wounds/incisions): Location: LLQ JUAN site, CDI. No Edema Wound drainage none. UNABLE TO INSPECT/ASSESS SKIN/WOUND/INCISION WITHIN 24 HOURS OF ADMISSION, DAILY, OR REQUIRED: Patient/Resident Declined due to personal preference Patient/Family/Surrogate Educated on the following risks: Increased risk of pressure related injury Increased risk of amputation Increased risk of infection Increased risk of worsening wound Skin Interventions performed this shift: Patient turned [id number] or as appropriate while in bed. Head of Bed kept below 30 degrees unless otherwise ordered. Patient refused: heel elevation, skin inspection Education given: risk of wounds /es/ STEFFANIE GRAVES RN, CMSRN REGISTERED NURSE Signed: 06/24/2024 23:04 STEFFANIE GRAVES [facility] Jun 24, 2024 04:32 PM NURSING INPATIENT NOTE: LOCAL TITLE: [facility] NURSING PROGRESS NOTE STANDARD TITLE: NURSING INPATIENT NOTE DATE OF NOTE: JUN 24, 2024@16:32 ENTRY DATE: JUN 24, 2024@16:33:05 AUTHOR: NATHEN PORTER COSIGNER: URGENCY: STATUS: COMPLETED Nursing Shift Note Nursing care provided from [phone] Highlights from shift: Patient belligerent this AM over diet, more agreeable after [place] [facility] arrived. Patient allowed for minimal assessment and medication administration. JUAN drain intact and patent, patient reports emptying it x2 this tour into toilet, this news writer emptied it x1 for 5ml, flushed per orders this tour. Patient making off hand remarks about never wanting to see certain members of [place], and about how close he was to deciding to leave AMA on previous tours. No mention of plans to leave AMA today, currently plan is for patient to discharge 06/25, patient initially unhappy with this but is currently agreeable to staying inpatient. See [facility] for detailed assessment Assessment Type: SKIN REINSPECTION/REASSESSMENT SKIN INSPECTION: Skin Color: Usual for ethnicity Skin Temperature: Warm Skin Moisture: Normal Skin Turgor: Elastic (normal/immediate) Neel Skin Assessment: The patient's Neel Scale Score is 19. The patient is considered not at risk for development of pressure ulcers/injuries. Sensory perception -- ability to respond meaningfully to pressure-related discomfort No impairment. Moisture -- degree to which skin is exposed to moisture Occasionally moist. Activity -- ability to change and control body position Walks occasionally. Mobility -- ability to change and control body position Slightly limited. Nutrition -- usual food intake patterns Adequate. Friction and shear No apparent problem. INTERVENTIONS: The pressure injury interventions were not needed - patient/resident is not at risk. RISK FACTORS THAT INCREASE RISK FOR DEVELOPING PRESSURE INJURIES: The patient/resident has the following: Device(s): (nasogastric tubes, oxygen tubing, urinary catheters, cell phone etc.) Comment: JUAN drain Wound - other than pressure ulcer/injury (includes open surgical wounds/incisions): Location: low abdominal JUAN site - cdi No Edema Wound drainage none. Skin Interventions performed this shift: Patient kept clean and dry with barrier cream applied as ordered. Head of Bed kept below 30 degrees unless otherwise ordered. /alexi/ NATHEN PORTER RN Field Service Rep Nurse Consulting Application Engineer Signed: 06/24/2024 16:38 NATHEN PORTER [facility] Jun 24, 2024 11:13 AM INFECTIOUS DISEASE ATTENDING NOTE: LOCAL TITLE: INFECTIOUS DISEASE INPT PROGRESS NOTE STANDARD TITLE: INFECTIOUS DISEASE ATTENDING NOTE DATE OF NOTE: JUN 24, 2024@11:13 ENTRY DATE: JUN 24, 2024@11:13:44 AUTHOR: SHELLY HOLLEY EXP COSIGNER: URGENCY: STATUS: COMPLETED Subjective: Feeling better than yesterday. Sitting up in chair. Just ate a bagel. Wants to leave the hospital as soon as possible. Shares opinion that this is a clear view behavioral health, that he would have already had surgery if he were at [facility], that he does not want to see his previous colorectal surgeon here, and various complaints about [place] staff here, none of which seem grounded in reality. Did note stool and gas in urine this morning. He is asking about oral antibiotics-discussed possible regimens, including amoxicillin/clavulanic acid and ciprofloxacin/metronidazole. He now tells me that he did not like amoxicillin/clavulanic acid but that I know I can get it down and wants to stay with that. Objective: Afebrile, vital stable Heart and lungs are unremarkable Abdomen is less tender today, brown fluid in suction bulb Labs reviewed-white count to 15.5 from 14.9, not significant change Assessment/plan: Patient with diverticular abscess and colovesicular fistula. Also complicated by patient distrust of this facility/specific providers. I reinforced that we have quite capable and outstanding surgeons who will provide outstanding care, and that ultimately his issue requires surgery to fix. Encouraged him to continue to work with colorectal surgery. Patient adamant that he wants to leave today. I think this would be safe to do with oral antibiotics, despite the lack of a drop in his white count. Recommend: Okay to discharge on amoxicillin/clavulanic acid, 875/125 mg p.o. twice daily. 10-day course recommended. ID will sign off-call [phone] with questions /es/ SHELLY HOLLEY MD CHIEF, INFECTIOUS DISEASE Signed: 06/24/2024 11:19 SHELLY HOLLEY [facility] Jun 24, 2024 09:35 AM COLON & RECTAL SURGERY NOTE: LOCAL TITLE: COLON-RECTAL INPT PROGRESS NOTE STANDARD TITLE: COLON & RECTAL SURGERY NOTE DATE OF NOTE: JUN 24, 2024@09:35 ENTRY DATE: JUN 24, 2024@09:35:50 AUTHOR: KATELYNN PERSON COSIGNER: URGENCY: STATUS: COMPLETED INPATIENT PROGRESS NOTE Subjective: Pt denies nausea/vomiting. Pt denies chest pain/sob/abdominal pain. He reports feeling better today but is still very upset. Objective: General: Awake, Alert, Oriented X3, No apparent distress HEENT: Pupils equally reactive to light, extra ocular movement intact, no scleral icterus, moist mucus membranes, neck supple, no jugular venous distention Cardio: S1, S2, regular rate, regular rhythm, no murmur/rubs/gallops Lungs: Clear to auscultation bilaterally, no crackles, no wheezing Abd: soft, ND, TTP in LLQ without guarding or rigidity Extrem: No clubbing/cyanosis/edema, 2+ bilateral pulses Neuro: CN II-XII grossly itnact Active Medications: Active Inpatient Medications (including Supplies): Active Inpatient Medications Status 1) ACETAMINOPHEN (INPT) TAB 650MG PO Q4H ACTIVE 2) HEPARIN INJ,SOLN 5000UNIT/1ML SQ Q8H ACTIVE 3) HYDROMORPHONE INJ,SOLN 0.2-0.4 MG IV Q4H PRN Give ACTIVE for pain if oral meds are not effective pain scale 3-6 give 0.2 mg pain scale 7-10 give 0.4 mg 4) HYDROXYZINE (INPT) TAB 10MG PO Q4H PRN 2nd line for ACTIVE pain 5) IBUPROFEN TAB 400MG PO Q6H PRN first line for pain ACTIVE 6) MAGNESIUM HYDROXIDE (INPT) SUSP,ORAL 30ML PO QDAY ACTIVE PRN Use as 2nd line. 7) ONDANSETRON INJ,SOLN 4-8 MG IVPB Q6H PRN for nausea; ACTIVE give over 2 to 5 minutes give 4 mg at first. ok to give additional 4 mg for total of 8 mg if first dose is not effective 8) OXYCODONE TAB 5MG PO Q4H PRN for pain ACTIVE 9) PIPERACILLIN/TAZOBACTAM 3.375GM 50ML INJ in ACTIVE PIPERACIL/TAZOB 3.375GM PREMIX 50 ML OVER 30 MINUTES for diverticulitis/abscess IVPB Q6H 10) POLYETHYLENE GLYCOL 3350 POWDER,ORAL 17 GM PKT PO ACTIVE QDAY PRN 3RD line for CONSTIPATION 11) POLYETHYLENE GLYCOL 3350 POWDER,ORAL 17 GM PKT PO ACTIVE DQAM 12) SENNOSIDES 8.6MG TAB 17.2MG PO BID PRN FIRST LINE ACTIVE FOR CONSTIPATION Labs: - INR: INR 1.2 H PLASMA (06/21/24 17:24) - Complete Blood Count White count: WBC 14.9 H (06/23/24) Hemoglobin: HGB 15.7 (06/23/24) Hematocrit: HCT 47.6 (06/23/24) Platelets: PLT 197 (06/23/24) - Complete Metabolic Panel SODIUM 135 L (06/23/24) POTASSIUM 3.4 L (06/23/24) CHLORIDE 100 (06/23/24) CO2 26 (06/23/24) UREA NITROGEN 16 (06/23/24) CREATININE 0.7 (06/23/24) GLUCOSE 110 H (06/23/24) CALCIUM 9.1 (06/23/24) MAGNESIUM 2.0 (06/23/24) EGFR (04/01) 07/10/2021@0641 74 CREATININE EGFR (CKD-EPI) 06/23/2024@0530 >90 AST/SGOT 23 (06/23/24) ALT/SGPT 12 (06/23/24) ALK PHOSPHATASE 77 (06/23/24) ALBUMIN 3.7 (06/23/24) BILIRUBIN, TOTAL 0.8 (06/23/24) Imaging IR drain placement 06/22/24 Impression: CT-guided left pelvic abscess drain placement. This drain should remain in place until surgical sigmoid resection on 07/03/2024. Assessment/Plan: 74yoM with h/o CAD, HLD, HTN, CKD, HFrEF, and known diverticulitis complicated by colovesicular fistula and abscess formation requiring a drain in March 2024 who was admitted for recurrent diverticulitis with fluid collection measuring up to 4.9 cm now s/p drain placement by IR on 06/22. Afebrile, VSS. WBC has been downtrending. WBC still pending today. Mild abdominal tenderness. - Regular diet - Pending progress with diet and labs for antibiotic: -Zosyn IV vs Cipro/Flagyl PO - Cont plan for elective surgery on 07/03/24 - Appreciate medicine co-management recommendations - Appreciate ID recommendations - CLD - Drain cares, monitor I/Os - PRN bowel regimen - Dispo: cont inpatient for iv abx for now NOTE: Pt was very agressive in the room with profuse foul language toward care providers. Pt re-iterated the desire to undergo surgery but vociferously stated not wanting [place] staff surgeon to come near them. Pt was seen with fellow who will discuss the plan with staff /alexi/ KATELYNN PERSON PLASTIC/RESIDENT Signed: 06/24/2024 09:54 Receipt Acknowledged By: 06/27/2024 14:30 /alexi/ WENCESLAO ARREDONDO MD STAFF SURGEON, COLON/RECTAL KATELYNN PERSON [facility] Jun 24, 2024 12:13 AM NURSING INPATIENT NOTE: LOCAL TITLE: [facility] NURSING PROGRESS NOTE STANDARD TITLE: NURSING INPATIENT NOTE DATE OF NOTE: JUN 24, 2024@00:13 ENTRY DATE: JUN 24, 2024@00:13:29 AUTHOR: CEDRIC JONES EXP COSIGNER: URGENCY: STATUS: COMPLETED Nursing Shift Note Nursing care provided from [phone] Highlights from shift: Patient alert and oriented and can make needs known. Allows some cares and assessments to be made; more cooperative this tour than previous tour. Acetaminophen adequate for pain control overnight. JUAN drain with 20 mls christ[place]on outputs, JUAN flushed per orders. Patient empties his own JUAN drain into cup for this news writer to measure. IV ABX infused without incident. Patient has one request overnight, he states, I DO NOT WANT TO SEE THAT MARYBETH POWELL EVER AGAIN! This news writer told patient that his request will be passed on to the next staff. Some explatives used to describe how he is feeling, none directed at this news writer. Continue plan of care. JUAN= 20 mls christianson output Admitting Diagnosis: COMPLICATED DIVERTICULITIS Blood Pressure: 116/59 (06/22/2024 13:40) Pulse: 56 (06/23/2024 00:06) Temperature: 98.3 F [36.8 C] (06/23/2024 00:06) Respiratory Rate: 16 (06/23/2024 00:06) Oxygen Saturation: 99% (06/23/2024 00:06) Delivery of Oxygen: Room Air Lung Sounds: Bilaterally clear Cough: None Secretions: Other: none Labs: TROPONIN - NONE FOUND POTASSIUM 3.4 L (06/23/24) WBC 14.9 H (06/23/24) HGB 15.7 (06/23/24) Rhythm: Other: no telemetry See ICCA for detailed assessment, Education provided on medication/cares this shift as needed Assessment Type: SKIN REINSPECTION/REASSESSMENT SKIN INSPECTION: Skin Color: Usual for ethnicity Skin Temperature: Warm Skin Moisture: Dry Skin Turgor: Non-Elastic INTERVENTIONS: No change in previous interventions as listed below 06/23/2024 Vaaes Pressure Injury Int Not Needed Localized abnormality: Other: Location(s): LLQ drain site Skin Interventions performed this shift: Patient refused: refused complete assessments Education given: on skin breakdown /es/ CEDRIC JONES BSN, RN REGISTERED NURSE Signed: 06/24/2024 07:32 CEDRIC JONES [facility] Jun 23, 2024 11:38 PM NURSING INPATIENT NOTE: LOCAL TITLE: [facility] NURSING PROGRESS NOTE STANDARD TITLE: NURSING INPATIENT NOTE DATE OF NOTE: JUN 23, 2024@23:38 ENTRY DATE: JUN 23, 2024@23:38:32 AUTHOR: GIANNA PEMBERTON EXP COSIGNER: URGENCY: STATUS: COMPLETED Nursing Shift Note Nursing care provided from [phone] Highlights from shift: Pt is alert x4, VSS, on RA, denies CP/SOB. Pt very upset at the beginning of the tour, yelling at staff and frusturated with his cares. Gage Maker trying to given scheduled meds at 2100 and pt yelling fuck you, I will just take my own med news writer explained that she was just following MD orders. Pt continued to yell at news writer, henrik you, don't act like you care about me, if I want something done I will just do it myself! Gage Maker asked pt to stop speaking to her in this manner and that she was here to help and pt continued to yell fuck you, I am just going to leave this place, if i was at [place] they would have fixed this by now!. Pt upset and slamming his water cup and continuing to yell and swear at multiple staff members. Police were call and spoke with pt. Pt did calm down after police were on the [place]. Gage Maker was able to give meds and do an assessment. Later pt was not feeling well and asked will you even check on me if I call you? I'm not sure why you work in this hospital anyways, you must not be able to get a job in a real hospital. SOD paged when pt was upset earlier in evening. Pt aware he can go AMA and explained his risks if he decided to leave. Pt c/o nausea and uspet stomach, IV zofran given. JUAN drain flushed with 10mls. Brown, milky drainage. Tubing securement device changed. JUAN drain; 10mls milky brown drainage. See ICCA for detailed assessment Assessment Type: SKIN REINSPECTION/REASSESSMENT SKIN INSPECTION: Skin Color: Usual for ethnicity Skin Temperature: Warm Skin Moisture: Normal Skin Turgor: Elastic (normal/immediate) INTERVENTIONS: No change in previous interventions as listed below 06/23/2024 Vaaes Pressure Injury Int Not Needed Wound - other than pressure ulcer/injury (includes open surgical wounds/incisions): Location: -LLQ: JUAN drain; stay fix dressing is CDI, tubing securment device applied. No Edema Wound drainage none. Skin Interventions performed this shift: Patient turned [id number] or as appropriate while in bed. Patient's heels elevated with pressure relief boots or pillows under calves. Head of Bed kept below 30 degrees unless otherwise ordered. /alexi/ GIANNA PEMBERTON RN RN, 2L Signed: 06/23/2024 23:49 GIANNA PEMBERTON [facility] Jun 23, 2024 05:34 PM COLON & RECTAL SURGERY NOTE: LOCAL TITLE: COLON-RECTAL INPT PROGRESS NOTE STANDARD TITLE: COLON & RECTAL SURGERY NOTE DATE OF NOTE: JUN 23, 2024@17:34 ENTRY DATE: JUN 23, 2024@17:34:26 AUTHOR: AYLA MAYEN COSIGNER: URGENCY: STATUS: COMPLETED Brief Colorectal Surgery Progress Note I was notified by RN that patient to threatening to leave AMA Talked to pt at bedside. An officer was also present. Patient is frustrated about pain management and would just like to take pain meds whenever he wants it. Doesn't want the hard stuff but would just like aspirin. He currently denies that the pain is worse and that it's improved with a pain medication that he just took. He is tolerating clears but does not appreciate the clear liquid diet. He also used a lot of expletives and suggested that I stop acting like I care about him and talk to another doctor. Nevertheless, he agreed to my plan of switching around his pain meds to better suit his needs. - Increased tylenol frequency to 650 mg q4h - Added ibuprofen 400 mg q8h, Cr wnl - Added hydroxyzine 10 mg q4h - cont PRN oxy & dilaudid Ayla Mayen DO General Surgery PGY-2 /es/ Ayla Mayen DO RESIDENT, GEN SURG Signed: 06/23/2024 17:57 AYLA MAYEN [facility] Jun 23, 2024 05:19 PM PRIMARY CARE NOTE: LOCAL TITLE: MEDICINE INPT CO-MANAGEMENT NOTE STANDARD TITLE: PRIMARY CARE NOTE DATE OF NOTE: JUN 23, 2024@17:19 ENTRY DATE: JUN 23, 2024@17:19:14 AUTHOR: JEVON ZAZUETA EXP COSIGNER: URGENCY: STATUS: COMPLETED DAILY MEDICAL PROGRESS NOTE Nursing Notes reviewed. I did NOT meet FLACA WEAVER today due to being relatively stable. I did review nursing notes, VS's, Lab's, Images and did a chart check. I attempted to meet with Mr. Weaver a couple times today but he was sleeping, I elected not to wake him up. RN reports he has been sleeping most of the day, reports he has been OK for her and she had no concerns. Reports he has not threatened to leave AMA today. OBJECTIVE VITALS: Blood pressure: Measurement DT BP 06/23/2024 09:00 120/92 06/22/2024 13:40 116/59 06/21/2024 23:02 130/75 06/21/2024 16:51 162/97 Pulse: Measurement DT PULSE 06/23/2024 09:00 74 06/23/2024 00:06 56 06/22/2024 13:40 86 06/21/2024 23:02 75 RR: 16 Temp: 98.0 F SaO2: 98% on RA PERTINENT MEDICATIONS: Active Inpatient Medications (including Supplies): Active Inpatient Medications Status 1) ACETAMINOPHEN (INPT) TAB 1000MG PO Q8H ACTIVE 2) HEPARIN INJ,SOLN 5000UNIT/1ML SQ Q8H ACTIVE 3) HYDROMORPHONE INJ,SOLN 0.2-0.4 MG IV Q4H PRN Give ACTIVE for pain if oral meds are not effective pain scale 3-6 give 0.2 mg pain scale 7-10 give 0.4 mg 4) ONDANSETRON INJ,SOLN 4-8 MG IVPB Q6H PRN for nausea; ACTIVE give over 2 to 5 minutes give 4 mg at first. ok to give additional 4 mg for total of 8 mg if first dose is not effective 5) OXYCODONE TAB 5MG PO Q4H PRN for pain ACTIVE 6) PIPERACILLIN/TAZOBACTAM 3.375GM 50ML INJ in ACTIVE PIPERACIL/TAZOB 3.375GM PREMIX 50 ML OVER 30 MINUTES for diverticulitis/abscess IVPB Q6H 7) POLYETHYLENE GLYCOL 3350 POWDER,ORAL 17 GM PKT PO ACTIVE DQAM 8) POTASSIUM CHLORIDE LIQUID (20MEQ/15ML) 40MEQ/30ML PO ACTIVE ONCE Dilute each cup in at least 4 ounces of cold water or other beverage. Pending Inpatient Medications Status 1) MAGNESIUM HYDROXIDE (INPT) SUSP,ORAL 30ML PO QDAY PENDING PRN 2) POLYETHYLENE GLYCOL 3350 POWDER,ORAL 17 GM PKT PO PENDING QDAY PRN 3) SENNOSIDES 8.6MG TAB 17.2MG PO BID PRN PENDING 11 Total Medications LABS: I have reviewed the past 48 hours of labs in the CPR[facility] system. IMAGING: I have reviewed the past 48 hours of images in the CPR[facility] system. 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 I also note a h/o impulsive control disorder and prior disruptive behavior complaints. Also has known diverticulitis over the past 8 years and now a colovesicular fistula and intra- abdominal abscess. He's had LLQ drains before and has been noted to have fecal material in his mathew at times. # Known diverticulitis and a colovesicular fistula and intra-abdominal abscess, CT May # s/p LLQ JUAN drain placement via IR, May # Probable Peritonitis, positive grams stain with bacteria and yeast # Probable UTI # Leukocytosis -Per Gen Surg: Wound care, pain control, antibiotics, DVT prophylaxis, PT/OT/activity, diet resumed. -I note ID consulted, did not recommend the yeast from the GS be empirically covered. -Blood cultures from 06/21 still NGTD. -Wound cultures still in process. # Impulsive behavior dyscontrol, h/o # Cantankerous/agitated AOx3 but quickly becomes angry, yells, swears and asked me to leave x2. I can do a better job myself, when tried to redirect and explain why the plan is what the plan is. Cl-liq diet ordered, he is eating peanut butter and jelly sandwich. Asked him not to take his own med's, he reports he plans to do what he thinks is best. (06/22) -Did update the waste minimization technician and the Gen Surg team. --Low threshold to file disruptive behavior reports and have reviewed. # HTN # HLD # CAD h/o EVIE # HFpEF ECHO Mar did not show CHF, but he is on a number of diuretics. He reports no recent swelling, but I was not able to do an exam. Due to his above infections and high risk of sepsis, I would recommend against any of his diuretics at this time until we can make sure he does not become hypotensive. Also worried we may double up on med's if he is taking his own. -Continue BUDGET TECHNICIAN Atorvastatin. -Continue BUDGET TECHNICIAN Isosorbide. -Continue BUDGET TECHNICIAN PRN Nitroglycerine. --Would hold home Empagliflozin, Furosemide, HCTZ/Lisinopril, Spironolactone for now. # JUANJOSE Do not know if he uses CPAP or not at this time. -Ok for 2L NC oxygen to keep SaO2 >90% if need. # h/o Renal infarct 2019 Currently no CKD, baseline creatine 0.9-1.0. -Continue to clinically monitor. # IFG A1c 4.9. No need to monitor glucoses at this time. May need to consider if he progresses to surgery. # MEDICINE CONSIDERATIONS -Medicine continues to follow. Prophylaxis: Heparin sq q8h. Diet: Cl liq diet. IVF's: None. /alexi/ Jevon Zazueta, PATTI, TOOL HARDENER Nurse Practitioner, Specialty Care-Surgery Signed: 06/23/2024 17:26 JEVON ZAZUETA [facility] Jun 23, 2024 12:26 PM INFECTIOUS DISEASE CONSULT: LOCAL TITLE: INFECTIOUS DISEASE CONSULT STANDARD TITLE: INFECTIOUS DISEASE CONSULT DATE OF NOTE: JUN 23, 2024@12:26 ENTRY DATE: JUN 23, 2024@12:26:34 AUTHOR: SHELLY HOLLEY EXP COSIGNER: URGENCY: STATUS: COMPLETED Assessment/plan: 73-year-old man with diverticular abscess, and known colovesicular fistula. Status post drain placement, with polymicrobial organisms on Gram stain, culture pending. Clinically improved after drainage and initiation of piperacillin/tazobactam. Yeast is expected ninfa of a perforated viscus-not clear needs treatment, in the absence of significant immune suppression and with adequate source control. Typically patients improve with antibacterials and source control alone, as he is doing. Patient also endorses significant intolerances of antibiotics-says he feels they make him nauseated, constipated, and generally does not enjoy taking them. Given all of this, would avoid antifungals for now, maintain piperacillin tazobactam, and plan to transition to an oral regimen soon. Definitely agree with colectomy in the near future, to hopefully mitigate future episodes. Recommendations: -Agree with piperacillin/tazobactam for now -Would not add an antifungal -Likely transition to an oral regimen in a few days; recently was prescribed amoxicillin/clavulanic acid which he tells me he thought was terrible to take. May try ciprofloxacin/metronidazole to see if he tolerates better. ID will continue to follow-call with questions. [phone] Asked to see patient with known diverticulitis and colovesicular fistula, presented with repeat diverticular abscess, status post drain placement History of present illness patient reports onset of abdominal pain, nausea, and malaise about 3 days ago. Very similar to her prior episodes of diverticulitis. Presented to the emergency department where a CT scan showed new fluid collection consistent with diverticular abscess adjacent to the bladder. Patient states that he fairly routinely has air/gas/feculent material in his bladder, but has not had it in the last 3 days. Denies fevers, chills, does have some night sweats. Underwent percutaneous drain placement which drained 20 cc purulence. Feels better after drainage and with initiation of antibiotics. Review of systems otherwise unremarkable Past medical history reviewed. Notable for coronary disease status post stents. CHF. Hypertension. Diverticulitis with colovesicular fistula. 1 prior drain placement in past. Social history. Lives in [place]. Retired due to disability. Multiple grandkids in the area. Has no other hobbies of note. Smokes marijuana, occasional alcohol Medications reviewed. Allergies to terazosin noted, patient states that he does not like penicillins (nausea, vomiting, gastric issues) Objective: Temperature 98.3, pulse 56, respirations 16, blood pressure 116/59 Alert man, awakens to voice, pleasant to speak with Neck is supple Cardiac exam unremarkable Lungs are clear Abdomen with drain in the low left lower quadrant, tenderness around there, less tenderness in other quadrants but still present. Bowel sounds noted. No Mathew in place Extremities are warm and well-perfused Labs are reviewed. White count is decreased from 16-14. Urinalysis with white cells as expected given colovesicular fistula. Culture from aspirate pending, Gram stain shows GPC's, GNR's, GPR's, and yeast CT prior to drain placement reviewed Assessment/plan: See above /alexi/ SHELLY HOLLEY MD CHIEF, INFECTIOUS DISEASE Signed: 06/23/2024 12:26 SHELLY HOLLEY [facility] Jun 23, 2024 10:43 AM COLON & RECTAL SURGERY NOTE: LOCAL TITLE: COLON-RECTAL INPT PROGRESS NOTE STANDARD TITLE: COLON & RECTAL SURGERY NOTE DATE OF NOTE: JUN 23, 2024@10:43 ENTRY DATE: JUN 23, 2024@10:43:36 AUTHOR: AYLA MAYEN COSIGNER: URGENCY: STATUS: COMPLETED COLON-RECTAL INPT PROGRESS NOTE Has ADDENDA INPATIENT PROGRESS NOTE Subjective: Feeling nauseous today. Agreed to stick with CLD today. Took miralax and is having bowel function. asking for IV pain meds as PO is not effective. Objective: Alert, oriented, NAD NLB on RA Abd is soft, ND, TTP in LLQ without guarding or rigidity Ext wwp CN II-XII grossly intact Drain- no output, only recorded as 5 cc as pt is emptying it himself Active Medications: Active Inpatient Medications (including Supplies): Active Inpatient Medications Status 1) ACETAMINOPHEN (INPT) TAB 1000MG PO Q8H ACTIVE 2) HEPARIN INJ,SOLN 5000UNIT/1ML SQ Q8H ACTIVE 3) HYDROMORPHONE INJ,SOLN 0.2-0.4 MG IV Q4H PRN Give ACTIVE for pain if oral meds are not effective pain scale 3-6 give 0.2 mg pain scale 7-10 give 0.4 mg 4) ONDANSETRON INJ,SOLN 4-8 MG IVPB Q6H PRN for nausea; ACTIVE give over 2 to 5 minutes give 4 mg at first. ok to give additional 4 mg for total of 8 mg if first dose is not effective 5) OXYCODONE TAB 5MG PO Q4H PRN for pain ACTIVE 6) PIPERACILLIN/TAZOBACTAM 3.375GM 50ML INJ in ACTIVE PIPERACIL/TAZOB 3.375GM PREMIX 50 ML OVER 30 MINUTES for diverticulitis/abscess IVPB Q6H 7) POLYETHYLENE GLYCOL 3350 POWDER,ORAL 17 GM PKT PO ACTIVE DQAM Labs: - INR: INR 1.2 H PLASMA (06/21/24 17:24) - Complete Blood Count White count: WBC 14.9 H (06/23/24) Hemoglobin: HGB 15.7 (06/23/24) Hematocrit: HCT 47.6 (06/23/24) Platelets: PLT 197 (06/23/24) - Complete Metabolic Panel SODIUM 135 L (06/23/24) POTASSIUM 3.4 L (06/23/24) CHLORIDE 100 (06/23/24) CO2 26 (06/23/24) UREA NITROGEN 16 (06/23/24) CREATININE 0.7 (06/23/24) GLUCOSE 110 H (06/23/24) CALCIUM 9.1 (06/23/24) MAGNESIUM 2.0 (06/23/24) EGFR (04/01) 07/10/2021@0641 74 CREATININE EGFR (CKD-EPI) 06/23/2024@0530 >90 AST/SGOT 23 (06/23/24) ALT/SGPT 12 (06/23/24) ALK PHOSPHATASE 77 (06/23/24) ALBUMIN 3.7 (06/23/24) BILIRUBIN, TOTAL 0.8 (06/23/24) Imaging IR drain placement 06/22/24 Impression: CT-guided left pelvic abscess drain placement. This drain should remain in place until surgical sigmoid resection on 07/03/2024. Assessment/Plan: 74yoM with h/o CAD, HLD, HTN, CKD, HFrEF, and known diverticulitis complicated by colovesicular fistula and abscess formation requiring a drain in March 2024 who was admitted for recurrent diverticulitis with fluid collection measuring up to 4.9 cm now s/p drain placement by IR on 06/22. Afebrile, VSS. WBC is downtrending but still nauseous today with abdominal tenderness. - Cont plan for elective surgery on 07/03/[address] Powell - Cont IV Zosyn - Appreciate medicine co-management recommendations - ID consulted today, appreciate recommendations - CLD - Drain cares, monitor I/Os - PRN bowel regimen - Increased zofran range - Added dilaudid to MMPC - Dispo: cont inpatient for iv abx for now Patient was seen and d/w staff Dr. Arredondo. Ayla Mayen DO Colorectal Surgery Resident PGY-2 /es/ Ayla Mayen DO RESIDENT, GEN SURG Signed: 06/23/2024 11:02 Receipt Acknowledged By: 06/27/2024 14:30 /alexi/ WENCESLAO ARREDONDO MD STAFF SURGEON, COLON/RECTAL 06/27/2024 ADDENDUM STATUS: COMPLETED I agree with the note by Dr Mayen. I saw and evaluated Mr Weaver on 06/23/2024 and I agree with the findings, assessment, and plan. 30 minutes spent in the care of this patient on 06/23/2024. /alexi/ WENCESLAO ARREDONDO MD STAFF SURGEON, COLON/RECTAL Signed: 06/27/2024 14:31 AYLA MAYEN [facility] Jun 23, 2024 09:56 AM NURSING INPATIENT NOTE: LOCAL TITLE: [facility] NURSING PROGRESS NOTE STANDARD TITLE: NURSING INPATIENT NOTE DATE OF NOTE: JUN 23, 2024@09:56 ENTRY DATE: JUN 23, 2024@09:56:28 AUTHOR: ZACKARY JOSE EXP COSIGNER: URGENCY: STATUS: COMPLETED Nursing Shift Note Nursing care provided from [phone] Highlights from shift: Alert and oriented, able to make needs known. Up IND in room. IV antibiotics infused without issues. PRN Zofran given x1 with relief. Pt upset that he is on clear liquid diet stating he will go get his own food. Pts behavior labile throughout shift. Self emptied JUAN drain stating it was full so it was emptied. Educated that we would like to have a measurement of future outputs. See ICCA for detailed assessment, Education provided on medication/cares this shift as needed Assessment Type: SKIN REINSPECTION/REASSESSMENT SKIN INSPECTION: Skin Color: Usual for ethnicity Skin Temperature: Warm Skin Moisture: Normal Skin Turgor: Elastic (normal/immediate) Neel Skin Assessment: The patient's Neel Scale Score is 22. The patient is considered not at risk [...] food intake patterns Adequate. Friction and shear No apparent problem. INTERVENTIONS: The pressure injury interventions were not needed - patient/resident is not at risk. RISK FACTORS THAT INCREASE RISK FOR DEVELOPING PRESSURE INJURIES: The patient/resident has the following: Device(s): (nasogastric tubes, oxygen tubing, urinary catheters, cell phone etc.) Comment: JUAN SKIN INTEGRITY: Intact Skin Interventions performed this shift: Head of Bed kept below 30 degrees unless otherwise ordered. Other: IND with repositioning and ADLs /es/ ZACKARY JOSE RN Registered Nurse Signed: 06/23/2024 15:11 ZACKARY JOSE [facility] Jun 22, 2024 10:59 PM NURSING INPATIENT NOTE: LOCAL TITLE: [facility] NURSING PROGRESS NOTE STANDARD TITLE: NURSING INPATIENT NOTE DATE OF NOTE: JUN 22, 2024@22:59 ENTRY DATE: JUN 22, 2024@22:59:34 AUTHOR: YARY MURRELL COSIGNER: URGENCY: STATUS: COMPLETED Nursing Shift Note Nursing care provided from: [phone] Highlights from shift: Admitting Diagnosis: COMPLICATED DIVERTICULITIS POD: 0-1 for JUAN drain placement. Surgery currently scheduled for 07/02 VITALS: see ICCA. refused midnight vitals. NEURO: AOx4, able to make needs known, uses call light appropriately. Frequent refusals of cares. Non compliant with dietary intake per hand off report. CARDIO: Denies C/P, no edema noted, WATER TAXI DRIVER < 3 seconds, PPP TELE: not ordered RESP: Denies SOB, remains on RA GI: Continent,BS active, round abdomen denies vomitting, endourced nausea over NOC. continued nausea w dry heaving after IV ondansetron. Oncall med co-manage doc notified. One time order for IV lorazepam recieved and given to vet. Requested laxative. On-call medicine comanagement contacted. Ordered miralax. Given to vet when felt able after a zofran admin. DIET: Clear liquid diet ordered. : Continent, voids without issues, medium dark yellow, clear urine. Voids per toilet. PAIN: endources abdominal discomfort and off and on pain. Managed with scheduled tylenol and PRN oxycodone. ACTIVITY: up adlib independantly. IV ACCESS: PIV to L AC and R FA intact, patent, saline locked, and dressing CDI. TUBES/DRAINS/OTHER: JUAN to LLQ intact and covered with dressing. Draining red colored liquid. 5ml flush performed. unable to measure output due to vet self draining JUAN prior to news writer being able to empty and measure. SKIN: unable to assess. Skin Interventions performed this shift as needed: Patient turned [id number] or as appropriate while in bed. Patient's heels elevated with pressure relief boots or pillows under calves. Patient kept clean and dry with barrier cream applied as ordered. Device(s) removed and skin underneath was inspected. Head of Bed kept below 30 degrees unless otherwise ordered. Slept off and on most of NOC. Education provided on medication/cares this shift as needed. No acute events this tour. Remains safe, in room, with call light within reach. /alexi/ YARY MURRELL RN Signed: 06/23/2024 08:07 YARY MURRELL [facility] Jun 22, 2024 08:10 PM NURSING INPATIENT NOTE: LOCAL TITLE: [facility] NURSING PROGRESS NOTE STANDARD TITLE: NURSING INPATIENT NOTE DATE OF NOTE: JUN 22, 2024@20:10 ENTRY DATE: JUN 22, 2024@20:10:32 AUTHOR: JANET CHOWDHURY COSIGNER: URGENCY: STATUS: COMPLETED Nursing Shift Note Nursing care provided from Highlights from shift: Pt A&Ox4, afebrile, VSS on RA. BS active, voiding without problems. Went to IR today for drain placement. dressing is CDI. Drain is putting out serosanguineous output. Pt denies pain. Up independently in room. Pt can be pleasant but can quickly become irritable, yelling and swearing--not redirectable. Ifeanyiiler today, prior to going to IR when pt was still NPO, upset that none of his home cardiac medications were ordered so he had a friend bring in his medications from home. Around 1130 when this news writer went into the room to inform him about the time IR has him down for, he told this news writer that he took his home medications. Asked to see what he took and reported it to general surgery and pharmacy. refer to pharmacy's note. See ICCA for detailed assessment, Education provided on medication/cares this shift as needed Skin Interventions performed this shift: Patient's heels elevated with pressure relief boots or pillows under calves. Patient kept clean and dry with barrier cream applied as ordered. Device(s) removed and skin underneath was inspected. /es/ Nou , pipe caulker nurse, SICU Signed: 06/22/2024 20:18 JANET CHOWDHURY [facility] Jun 22, 2024 06:45 PM NURSING NOTE: LOCAL TITLE: [facility] NSG IV INSERTION AND MAINTENANCE STANDARD TITLE: NURSING NOTE DATE OF NOTE: JUN 22, 2024@18:45 ENTRY DATE: JUN 22, 2024@18:45:29 AUTHOR: MARRY BADILLO EXP COSIGNER: URGENCY: STATUS: COMPLETED Version 2.2 Charting in accordance with [place] APPROVED [place] STANDARD ([facility]) ACUTE INPATIENT/REHABILITATION NURSING ADMISSION SCREENING, ASSESSMENT, AND STANDARDS OF CARE ======== IV Line Insertion and Maintenance ======== ======== Peripheral IV ======== Line #2: Insertion: Date/Time: May@18:30 Inserted by (name): news writer Insertion Aid: Ultrasound guided Location: Right, Forearm Gauge: 20 Assessment: Dressing Condition: Clean, dry, intact Site Condition: No redness, swelling, pain Line Status: Capped Flushed Positive blood return /alexi/ MARRY BADILLO LPN LICENSED PRACTICAL NURSE Signed: 06/22/2024 18:46 MARRY BADILLO [facility] Jun 22, 2024 01:40 PM PROCEDURE NOTE: LOCAL TITLE: MODERATE SEDATION POST-SEDATION NOTE STANDARD TITLE: PROCEDURE NOTE DATE OF NOTE: JUN 22, 2024@13:40 ENTRY DATE: JUN 22, 2024@13:40:15 AUTHOR: HERMAN QUINTERO EXP COSIGNER: URGENCY: STATUS: COMPLETED MODERATE SEDATION MEDICATIONS given during procedure: Fentanyl: 150 mcg Midazolam: 3 mg POST SEDATION ASSESSMENT AND RELEASE CRITERIA: VA-PAS criteria for release met at Time: 15:20 VA-PAS Phase 1 Score: 14 VITAL SIGNS: Time Vitals were taken: 15:20 Pulse: 86 Respirations: 18 Blood Pressure: 116/59 Pain Score: 0 O2 Sat: 96% RA All personnel present during procedure including vendors: RT Ryan Green RELEASED TO: [place] Verbal RN to RN report given including delirium risk: Yes IV Access: Continued Patient and/or family given opportunity to ask questions and have questions answered. Patient and/or family stated understanding of post procedure instructions. Events Reporting: No adverse events were noted during the procedure. /alexi/ HERMAN QUINTERO REGISTERED NURSE Signed: 06/22/2024 13:41 HERMAN QUINTERO [facility] Jun 22, 2024 12:34 PM CONSENT: LOCAL TITLE: CONSENT CLINICAL IMED STANDARD TITLE: CONSENT DATE OF NOTE: JUN 22, 2024@12:34:12 ENTRY DATE: JUN 22, 2024@12:34:33 AUTHOR: CHANEL HEREDIA EXP COSIGNER: URGENCY: STATUS: COMPLETED VistA Imaging - Scanned Document Signature Informed Consent for Abscess-Unspecified Exchange and/or Drainage Tube Placement (Unspecified Exchange and/or Drainage Tube Placement) Aspiration - Fine Needle Biopsy 1. Anatomical Location: abdomen; pelvis 2. Informed consent was obtained at 12:21 PM on 06/22/24. The full consent document can be accessed through [employer]. 3. Patient name: FLACA WEAVER 4. The patient HAS decision-making capacity. 5. Surrogate (if applicable): 6. Reason for the treatment (diagnosis, condition, or indication): UNSPECIFIED EXCHANGE AND/OR DRAINAGE TUBE PLACEMENT Abscess or collection of pus. ASPIRATION - FINE NEEDLE BIOPSY asp diagnosis 7. Treatment/procedure: UNSPECIFIED EXCHANGE AND/OR DRAINAGE TUBE PLACEMENT This procedure involves the insertion of a needle through the skin into the abscess cavity followed by insertion of a tube to allow drainage. This procedure is done with CT (an imaging technique), x-rays or ultrasound guidance. X-rays of the abscess are taken and specimens from the abscess may be sent to the laboratory for examination. (Unspecified Exchange and/or Drainage Tube Placement) ASPIRATION - FINE NEEDLE BIOPSY Aspiration or removal of fluid with an aspiration needle to allow microscopic inspection of the fluid removed. The needles are guided using an x-ray or ultrasound or both. 8. Moderate sedation will be used. Medications [...] 9. Consent to Blood Products (if applicable): I CONSENT to the use of blood products during this treatment/procedure if they are needed. I understand that the benefit of blood products is that they may improve my overall condition or save my life. I understand that my consent for use of blood products is valid while I recover from the treatment/procedure. My provider will determine when this recovery period ends. If this consent form expires, my treatment plan changes, or if blood products are needed for a reason that is unrelated to this treatment/procedure, I will be asked again for my consent for use of blood products. I understand that common risks of using blood products include (but are not limited to) infection or irritation where the needle is placed, fever, chills, and skin rashes. Other rare but more serious complications may occur such as allergic reactions, heart failure due to fluid overload, acute pulmonary edema (fluid leaking into the lungs), shock, or . I also understand that transfusions of blood or blood products involve a small risk of transmission of diseases such as Hepatitis B (1 in 137,000), Hepatitis C (1 in 1,000,000), and HIV/AIDS (1 in 1,900,000). There is also a small risk of bacterial infection when blood platelets are transfused. Alternatives to blood or blood products may be available if my health, time, and procedure permit. These alternatives may include auto-donation (using my own previously donated blood) and intra-operative salvage (my own blood collected during surgery). In addition, medications may be used to reduce the need for blood products. 10. Practitioner obtaining consent: Lisa Pendleton MD 11. Supervising practitioner: 12. Practitioner(s) performing or supervising treatment/procedure (if not listed above): 13. Witness Name(s): 14. Comments: SCANNED DOCUMENT SIGNATURE NOT REQUIRED Electronically Filed: 06/22/2024 by: CHANEL HEREDIA [facility],CHANEL [facility] Jun 22, 2024 12:19 PM INTERVENTIONAL RADIOLOGY NURSING NOTE: LOCAL TITLE: INTERVENTIONAL RADIOLOGY NURSING PROCEDURE NOTE STANDARD TITLE: INTERVENTIONAL RADIOLOGY NURSING NOTE DATE OF NOTE: JUN 22, 2024@12:19 ENTRY DATE: JUN 22, 2024@12:19:20 AUTHOR: HERMAN QUINTERO COSIGNER: URGENCY: STATUS: COMPLETED Procedure: LLQ ABCESS DRAIN PLACEMENT Patient was identified by using full name [...] site. Physician present during time out: Dr. Lisa Pendleton Additional staff that participated in procedure: RT Davis Written informed consent obtained from the patient or surrogate, using the [place] approved form and process. Informed Consent Progress Note containing risks, benefits and alternatives documented. If applicable, imaging data were verified and confirmed. Patient positioning was verified prior to procedure if relevant. (supine, lateral) All necessary special equipment including implants were verified prior to procedure. Procedure Date and Start Time: May@12:55 Time Procedure completed: May@13:15 Medications: Sedation Start time: 12:55 Sedation End time: 13:15 Code status/LST: FULL Patient arrived to IR holding room alert, oriented and aware of procedure to be performed. Written informed consent obtained by MD Pendleton for abscess/drain placement. Risk vs Benefits discussed; all questions answered. Patient states they understand and wish to proceed today. Site was marked by MD. Patient transferred to CT room 15 and connected to monitor. Patient positioned supine per MD. Left lower quadrant prepped and draped using sterile technique. MD arrival, Timeout performed. MD injected 1% lidocaine to LLQ. Drain placed to LLQ under CT guidance, 20ml christianson purulent fluid removed and sent to lab. 12Fr Locking skater attached to JUAN drain. Site dressed with split gauze, gauze, and mediport tape; remains clean, dry, and intact upon leaving IR. Patient tolerated the procedure, vital signs stable throughout, no immediate complications noted. Labs sent: lb: Anerob Medications given: Medication: Midazolam Dose: 1mg/1mL Route: IVP Time: 12:55, 13:10 Site: Left AC 20G Medication: Midazolam Dose: 0.5mg/0.5mL Route: IVP Time: 13:00, 13:05 Site: Left AC 20G Medication: Fentanyl Dose: 50mcg/1mL Route: IVP Time: 12:55, 13:10 Site: Left AC 20G Medication: Fentanyl Dose: 25mcg/0.5mL Route: IVP Time: 13:00, 13:05 Site: Left AC 20G Post-procedure Vital Signs BP: 102/59 HR: 82 02: 98% 2L NC SBAR report given to Nou RN, please see MD orders. Please reference Interventional MD imaging report/procedure note for further details and findings. /alexi/ HERMAN QUINTERO REGISTERED NURSE Signed: 06/22/2024 13:40 HERMAN QUINTERO [facility] Jun 22, 2024 12:15 PM PROCEDURE NOTE: LOCAL TITLE: MODERATE SEDATION PRE-SEDATION NOTE STANDARD TITLE: PROCEDURE NOTE DATE OF NOTE: JUN 22, 2024@12:15 ENTRY DATE: JUN 22, 2024@12:15:26 AUTHOR: HERMAN QUINTERO EXP COSIGNER: URGENCY: STATUS: COMPLETED MODERATE SEDATION RN Pre-Sedation Assessment or Dental Resident: Patient identification verified. Indicate time and nature of last oral intake (should be NPO for at least 2 hours except in an emergency) Liquids: 12+ hours ago, not clear (2-4 hours) Solids: 12+ hours ago, heavy fat.protein meal (8 hours) Care plan - monitor for procedural or sedation related events. Active Inpatient Medications (including Supplies): Active Inpatient Medications Status 1) ACETAMINOPHEN (INPT) TAB 1000MG PO Q8H ACTIVE 2) CEFTRIAXONE INJ,SOLN CEFTRIAXONE 2 GM in 0.9% ACTIVE NACL 100 ML OVER 30 MINUTES INCOMPAT WITH CALCIUM-FLUSH BEFORE/AFTER IV CALCIUM GIVEN IVPB Q24H 3) LACTATED RINGERS INJ,SOLN in LACTATED RINGERS 1000 ACTIVE ML 125 ml/hr iv limit = 3000ml (24 hours) IV 4) METRONIDAZOLE INJ METRONIDAZOLE 500 MG in ISOTONIC ACTIVE SOLUTION PREMIX 100 ML INFUSE OVER 60 MINUTES IVPB Q8H 5) ONDANSETRON INJ,SOLN 4MG/2ML IVPB Q6H PRN for ACTIVE nausea; give over 2 to 5 minutes 6) OXYCODONE TAB 5MG PO Q4H PRN for pain ACTIVE Medications reviewed with the patient: no changes LAB results reviewed as applicable. PT 13.9 H (06/21/24) INR 1.2 H PLASMA (06/21/24 17:24) HGB 17.8 (06/21/24) PLT 274 (06/21/24) SODIUM 137 (06/21/24) POTASSIUM 3.0 L (06/21/24) CREATININE 0.9 (06/21/24) UREA NITROGEN 29 H (06/21/24) ALLERGIES/ADR: TERAZOSIN (Mar 13, 2015) Mode of transport: Litter Pre-procedure education reviewed. Written instructions given to patient. Patient and/or family given opportunity to ask questions and state understanding of procedure. PRE-SEDATION VITAL SIGNS: Temperature: 97.9 F [36.6 C] (06/21/2024 23:02) Pulse: 75 (06/21/2024 23:02) Respirations: 17 (06/21/2024 23:02) Blood Pressure: 130/75 (06/21/2024 23:02) O2 Sat: PULSE OXIMETRY (MOST RECENT IN LAST YEAR): 95 (JUN 21, 2024@23:02:17) Pain: 7 (06/22/2024 04:22) Pain location: 3/10 LLQ abdomen LEVEL OF CONSCIOUSNESS (LOC): 2-Fully awake. /alexi/ HERMAN QUINTERO REGISTERED NURSE Signed: 06/22/2024 12:16 HERMAN QUINTERO [facility] Jun 22, 2024 10:14 AM SURGERY ATTENDING INPATIENT NOTE: LOCAL TITLE: GENERAL SURGERY INPT PROGRESS NOTE STANDARD TITLE: SURGERY ATTENDING INPATIENT NOTE DATE OF NOTE: JUN 22, 2024@10:14 ENTRY DATE: JUN 22, 2024@10:14:48 AUTHOR: FAIZA SIMENTAL EXP COSIGNER: URGENCY: STATUS: COMPLETED Surgery team brief update: Was contacted by bedside RN that patient is threatening to leave AMA if he doesn't get plans fast. I discussed with our colorectal surgery resident team. Plan is for IR abscess drain placement. LISANDRO order placed. Patient updated with plans. He remains quite upset. I encouraged him not to leave AMA as he does have a fairly significant infection that continues to need treatment with this IR drain as well as antibiotics. - Continue NPO. - IR Drain placement LISANDRO. - Consider diet after drain placement (per patient request). - Further recs as per colorectal surgery team. Faiza Simental CORPORATE SECURITY MANAGER /alexi/ FAIZA SIMENTAL NURSE PRACTITIONER Signed: 06/22/2024 10:17 FAIZA SIMENTAL [facility] Jun 22, 2024 01:36 AM TREATMENT PLAN INTERDISCIPLINARY NOTE: LOCAL TITLE: ITP INTERDISCIPLINARY TREATMENT PLAN STANDARD TITLE: TREATMENT PLAN INTERDISCIPLINARY NOTE DATE OF NOTE: JUN 22, 2024@01:36 ENTRY DATE: JUN 22, 2024@01:36:40 AUTHOR: ALMA CHACKO EXP COSIGNER: URGENCY: STATUS: COMPLETED ITP INTERDISCIPLINARY TREATMENT PLAN Has ADDENDA Interdisciplinary Treatment Plan (ITP) Date of current Admission: May Medical problems to be addressed, including reason for admission as well as all active medical problems: 1.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 2.Patient will verbalize a decreased level /and/or absence of pain. 3.Patient will remain absent of S/S of infection/UTI 4.Patient incision will remain intact. Treatment plan/Interventions: 1.Teach pt. pain scale rating, importance of adequate pain relief tolerable pain level for the patient. Assess pain level with VS, offer pain meds PRN. Educate pt. about pain medications being administered, monitor and document effectiveness of pain medications, follow-up with MDs if pain management is ineffective. 2.Staff will use proper hand washing technique, administer ordered ABX, use sterile technique for dressing changes, teach and encourage use of IS, monitor for adequate nutrition, monitor and report changes in lab results, monitor and chart description of incisional area. Measurable Outcomes: 1.Patient's VS are stable and WNL. Patient will verbalize pain level using 0-10 rating scale. Patient verbalized understanding the importance of adequate pain relief. Patient is able to verbalize decreased level or absence of pain, verbalizes effective method of pain management, tolerable pain level for the patient. 2.Patient is free of s/s of infection - afebrile, no yellowish or greenish foul- smelling drainage from wound, wound margins are pink and non-tender, pain level not increasing. Patient is able to verbalize s/s of infection for home care, verbalizes understanding of administration of antibiotics if needed. Expected length of stay: 2-4 days Discharge Plan: Patient will return home and/or necessary discharge plan arrangement to be implemented. Discharge plan depends upon patients progress during hospitalization. Anticipated educational needs: Tests/treatment's/procedures : risks and benefits, disease process, medication. Discharge educational materials and instructions Participants: Multidisciplinary team available: Patient, nurses, doctors, PT/OT therapists, dietitian, pharmacist, social media director, life manager (per patient's request), Lab technicians, IV team, etc. Transportation needed: None at this time. If needed transportation to be arranged. Plan of care shared with patient/family. Patient/family verbalized understanding. /jerome CHACKO DEAN OF ADMISSIONS NURSE 2K Signed: 06/22/2024 01:46 06/25/2024 ADDENDUM STATUS: COMPLETED All goals met. /alexi/ NADEEM TRUJILLO RN Signed: 06/25/2024 09:27 ALMA CHACKO [facility] Jun 22, 2024 01:31 AM NURSING INPATIENT NOTE: LOCAL TITLE: [facility] NURSING PROGRESS NOTE STANDARD TITLE: NURSING INPATIENT NOTE DATE OF NOTE: JUN 22, 2024@01:31 ENTRY DATE: JUN 22, 2024@01:32:03 AUTHOR: ALMA CHACKO EXP COSIGNER: URGENCY: STATUS: COMPLETED Nursing Shift Note Nursing care provided from [phone] Highlights from shift: A&Ox4, VSS, LSCA, O2 stat is 95%-96% on RA. Pt denied chest pain and SOB. Pt reported 7/10 pain level during tour (PRN pain meds given- effective). PIV is on the R lower forearm and has LR running @125 mL/hr. Antibiotics were given @0000. Bowel sounds are active ( no BM during tour and pt reported passing gas). Pt denied n/v. Pt uses the urinal/ bathroom to urinate. Pt is independent. Pt is NPO from @0100 06/12 Patient is able to make needs known. Call light within reach. See ICCA for detailed assessment, Education provided on medication/cares this shift as needed Assessment Type: SKIN REINSPECTION/REASSESSMENT SKIN INSPECTION: Skin Color: Usual for ethnicity Skin Temperature: Warm Skin Moisture: Normal Skin Turgor: Elastic (normal/immediate) Neel Skin Assessment: The patient's Neel Scale Score is 19. The patient is considered not at risk [...] intake patterns Probably inadequate. Friction and shear Potential problem. INTERVENTIONS: The pressure injury interventions were not needed - patient/resident is not at risk. RISK FACTORS THAT INCREASE RISK FOR DEVELOPING PRESSURE INJURIES: The patient/resident has the following: Device(s): (nasogastric tubes, oxygen tubing, urinary catheters, cell phone etc.) Comment: PIV SKIN INTEGRITY: Intact Skin Interventions performed this shift: Device(s) removed and skin underneath was inspected. Head of Bed kept below 30 degrees unless otherwise ordered. /alexi/ ALMA CHACKO DEAN OF ADMISSIONS NURSE 2K Signed: 06/22/2024 07:31 ALMA CHACKO [facility] Jun 21, 2024 11:15 PM NURSING ADMISSION EVALUATION NOTE: LOCAL TITLE: VAAES ACUTE INPATIENT NSG ADMISSION SCREEN STANDARD TITLE: NURSING ADMISSION EVALUATION NOTE DATE OF NOTE: JUN 21, 2024@23:15 ENTRY DATE: JUN 21, 2024@23:15:22 AUTHOR: INDIAROSENDAALMA BARTHOLOMEW EXP COSIGNER: URGENCY: STATUS: COMPLETED ===== ALLERGY/ADVERSE DRUG REACTION (ADR) REVIEW (MRT5) ===== FACILITY ALLERGY/ADR -------- WARNING: Connection to Remote Data Currently Down [facility] TERAZOSIN Allergy/Adverse Drug Reaction Review to be conducted by: Provider ==== MEDICATION REVIEW (MRR1) ==== Did patient bring medication(s) from home? No Medication Review to be conducted by Provider ==== GENERAL INFORMATION ==== Admission information given by: Patient Is there a legal guardian/conservator? No Preferred language for discussing healthcare: Georgian Preferred mode of communication: Verbal Items at Bedside: Mobility device: Mobile Other: Personal clothes and shoes ===== INFECTIOUS DISEASE RISK SCREEN ===== Travel Screen: Have you traveled within the [place] within the last 21 days? No Have you traveled outside the [place] within the last 21 days? No Within the last 14 days, have you had: No known exposure Other Exposure to Infectious Disease: No known exposure Patient reported the following symptoms: No Symptoms Present History of Multiple Drug Resistant Organism (MDRO): No ===== NUTRITION SCREENING ===== Malnutrition Screening Weight (Previous 6 months): Measurement DT WEIGHT LB(KG)[BMI] 06/08/2024 11:43 206.4(93.62)[30*] 05/15/2024 08:20 210(95.25)[29*] 04/23/2024 13:59 211.1(95.75)[30*] 01/30/2024 08:59 220.2(99.88)[31*] Lost weight recently without trying: No (0 points) Have you been eating poorly because of decreased appetite? No (0 points) Total Score: 0 Other Nutrition Screening Questions: The patient does not report any concerns with their teeth that would make it difficult to eat. The patient does not report overeating to the point of feeling sick or making themselves vomit. The patient denies gaining 10 lbs.(4.5 kgs) or more in the past 3 months without trying. The patient denies having any food allergies, intolerance, special dietary needs, or ethnic, cultural or yarsanism preferences that would affect their dietary needs. Food Insecurity Screening Within the past 12 months, you worried whether your food would run out before you got money to buy more. Never true Within the past 12 months, the food you bought just did not last you and you did not have the money to get more. Never true Food Insecurity Disposition: Patient declined additional assistance/consults ==== RISK SCREENINGS ==== Alcohol Screen: Screen to be completed by: [...] of liquor (like scotch, gin, or vodka). Two to four times a month 2. How many drinks containing alcohol did you have on a typical day when you were drinking in the past year? One or two drinks 3. How often did you have six or more drinks on one occasion in the past year? Never *Does the patient consume alcohol? Yes: Alcohol Use History: Amount used/Frequency: 1-2 drinks once every 3 weeks or month Date/Time of last use: May Do you have a history of alcohol withdrawal symptoms? No Do you have a history of Delirium Tremens (DTs)? No Do you have a history of seizures related to withdrawal? No Tobacco Use: Current everyday tobacco user: Cigars/Pipes Patient offered FDA-Approved cessation medication (alternative nicotine products): Patient declines cessation medication. Complete tobacco cessation education: To be completed by provider Do you currently or have you ever used alternative nicotine products? No Substance Use Assessment: *Do you use any recreational drugs or narcotics (prescription or non-prescription)? No ===== RISK OF WANDERING ===== The patient does not have a history of wandering. The patient does not have a history of elopement. The patient is not expressing a desire to leave. === SUICIDE SCREEN === Result of C-SSRS screener done was NEGATIVE. C-SSRS Screen is Negative ==== EXPOSURE TO VIOLENCE AND ABUSE PRE-SCREEN ==== Are you worried for your safety, that you will be hurt or harmed? No Has anyone tried to force you to sign papers or use your money against your will? No ==== POST TRAUMATIC STRESS DISORDER CARE CONSIDERATIONS ==== To minimize a startle response, what is your preference on how best to awaken you? No preference ===== REPRODUCTIVE & SEXUAL HEALTH ===== Do you have any sexual or reproductive concerns you would like your healthcare team to be aware of? No ==== ADVANCE DIRECTIVE ==== Notification of Rights Related to Advance Directives: Written notification not provided. Explain: Pt was not interseted *The patient wishes to receive information about or assistance with Advance Care Planning and/or Advance Directive: No === SPIRITUALITY === Are there yarsanism practices or spiritual concerns you want the welding technician, your provider, and other health care team members to know? No ==== ANTICIPATED DISCHARGE NEEDS ==== Where do you live? Housing owned/rented by : Method of transportation upon discharge: Private Vehicle: Came with friend Are there any anticipated barriers to discharge? No === EDUCATIONAL NEEDS/LEARNING STYLE === Barriers to learning: None evident Patient learning style preferences: Demonstration Printed materials Verbal explanation ==== VISITOR INFORMATION ==== Will you have a primary support person while in the hospital? yes, his friend Patient's Visitor Restriction preferences: No Privacy Review: No passcode provided due to opt out ====== GARCIA FALL SCALE & TIPS PROGRAM ====== Garcia Fall Scale: The Garcia Fall scale [...] Fall TIPS initiated with patient: Yes Interventions: Communicate recent fall or risk of harm IV assistance when walking ====== PAIN ASSESSMENT ====== Patient's acceptable pain goal: 2 Notice pain, does not interfere with activities Are you currently experiencing pain? Yes - DVPRS scale used to assess Location: Abdomen Defense and Veterans Pain Rating Scale (DVPRS): 7 Focus of attention, prevents doing daily activities Pain Score: 7 Primary Pain Assessment: Pain Type: Acute Describe Pain (Quality): Musculoskeletal: Aching, Cramping Pain Alleviating Interventions: Medication, see JUANCARLOS whelan/ ALMA CHACKO DEAN OF ADMISSIONS NURSE 2K Signed: 06/22/2024 01:30 ALMA CHACKO [facility]
[2024-07-16 07:30] LABS: Sodium* 123 mmol/L (135-149)
--- OUTSIDE RECORDS SUMMARY | 2024-07-16 07:30 | XMS_ITS ---
[place] DAILY HOSPITALIZATION DATA [facility] Encounter Summary Created on: July 16, 2024 MEG FLACADARCI LOBO : 1950 Sex: Male Author Name [facility] [place] [facility] [place] Address [address] [place] [address] Care Team Providers Care City Solicitor Name Role Phone JATINDER CABRERA Primary Care [...] PART A Sep 29, 2016 PART A [id number] [phone] JUDY WEAVER PATIENT Selected Encounter This section includes the information on record at [place] for the Encounter. Date/Time Encounter Type Encounter Description Reason Pro vider Source Jun 21, 2024 11:15 PM Inpatient Visit DAILY HOSPITALIZATION DATA [facility] Encounter Template Text not used by [place] [...] 27, 2024 07:00 AM AMBULATORY - NONE [facility] Jun 27, 2024 07:30 AM AMBULATORY - MEDICINE [facility] Jun 27, 2024 08:00 AM AMBULATORY - MEDICINE [facility] Jul 03, 2024 05:55 AM AMBULATORY - NONE [facility] Jul 13, 2024 08:15 AM AMBULATORY - NONE [facility] Active, Pending, and Scheduled Orders This section includes a listing of several types of active, pending, and scheduled orders, including clinic medications orders, diagnostic test orders, procedure orders and consult orders; where the start date of the order is 45 days before the date of the Encounter or 45 days after the date of theEncounter. The data comes from all [facility] facilities. Test Date/Time Test Type Test Details Facility Name May 28, 2024 12:00 AM Laboratory - Blood Bank Order TYPE & SCREEN - LAB BLOOD SP [facility] Jun 08, 2024 09:57 AM Laboratory - Chemi stry Order URINALYSIS URINE WC ONCE [facility] Jun 12, 2024 12:00 AM Laboratory - Chemi stry Order BNP PLASMA SP ONCE [facility] Jun 21, 2024 05:45 PM Laboratory - Blood Bank Order TYPE & SCREEN - LAB BLOOD [facility] Jul 03, 2024 12:00 AM Laboratory - Blood Bank Order TYPE & SCREEN - LAB BLOOD [facility] Jul 16, 2024 12:00 AM Laboratory - Chemi stry Order CBC BLOOD SP ONCE [facility] Jul 17, 2024 12:00 AM Laboratory - Chemi stry Order BASIC METABOLIC PANEL+MG PLASMA SP ONCE [facility] Lab Results: +/- 30 [...] Range Comment Jul 10, 2024 07:16 AM [facility] PHOSPHORUS Specimen Type: PLASMA No comment entered. Ordering Provider: JUANCARLOS ECHOLS Report Released Date/Time: Jul 09, 2024 12:23 PM Reporting Lab: [facility] [address] Performing Lab: [facility] [address] PHOSPHORUS 3.0 mg/dL 2.3-4.3 Jul 10, 2024 07:16 AM [facility] BASIC METABOLIC PANEL+MG Specimen Type: PLASMA No comment entered. Ordering Provider: JUANCARLOS ECHOLS Report Released Date/Time: Jul 09, 2024 12:23 PM Reporting Lab: [facility] [address] Performing Lab: [facility] [address] CREATININE 0.7 mg/dL 0.7-1.2 UREA NITROGEN 27 mg/dL H 8-26 GLUCOSE 104 mg/dL H 70-100 SODIUM 133 mmol/L L 136-145 POTASSIUM 4.3 mmol/L 3.5-5.1 CHLORIDE 102 mmol/L 98-107 CO2 19 mmol/L L 22-29 CALCIUM 10.1 mg/dL 8.4-10.2 MAGNESIUM 1.9 mg/dL 1.6-2.6 ANION GAP 12 mmol/L 5-15 .CREAT EGFR(CKD-EPI) >90 >60 Jul 10, 2024 07:15 AM [facility] CBC Specimen Type: BLOOD No comment entered. Ordering Provider: JUANCARLOS ECHOLS S Report Released Date/Time: Jul 09, 2024 12:23 PM Reporting Lab: [facility] [phone] Performing Lab: [facility] [address] WBC 18.8 H 4.0-11.0 RBC 5.08 4.60-6.20 HGB 15.9 g/dL 13.5-17.9 HCT 46.8 41.0-54.0 MCV 92.1 fL 80.0-100.0 MCH 31.3 pg 27.0-33.0 MCHC 34.0 g/dL 32.0-37.5 PLT 479 H 150-400 MPV 10.2 fL 9.1-13.0 RDW 13.7 11.5-14.5 Jul 09, 2024 07:08 AM [facility] CBC Specimen Type: BLOOD No comment entered. Ordering Provider: QUYNH WEISS AV Report Released Date/Time: Jul 08, 2024 06:18 PM Reporting Lab: [facility] [address] Performing Lab: [facility] [address] WBC 15.3 H 4.0-11.0 RBC 4.91 4.60-6.20 HGB 15.1 g/dL 13.5-17.9 HCT 45.7 41.0-54.0 MCV 93.1 fL 80.0-100.0 MCH 30.8 pg 27.0-33.0 MCHC 33.0 g/dL 32.0-37.5 PLT 443 H 150-400 MPV 10.0 fL 9.1-13.0 RDW 13.5 11.5-14.5 Jul 08, 2024 10:50 AM [facility] URINALYSIS Specimen Type: URINE No comment entered. Ordering Provider: KATELYNN PERSON Report Released Date/Time: Jul 08, 2024 08:41 AM Reporting Lab: [facility] [address] Performing Lab: [facility] [address] URINE COLOR YELLOW SPECIFIC GRAVITY >1.050 H [...] NEGATIVE NEGATIVE Jul 08, 2024 09:54 AM [facility] CBC Specimen Type: BLOOD Comment: Specimen received in Lab at: [id number] Ordering Provider: JUANCARLOS ECHOLS Report Released Date/Time: Jul 07, 2024 04:49 PM Reporting Lab: [facility] [address] Performing Lab: [facility] [address] WBC 17.5 H 4.0-11.0 RBC 4.88 4.60-6.20 HGB 14.9 g/dL 13.5-17.9 HCT 45.7 41.0-54.0 MCV 93.6 fL 80.0-100.0 MCH 30.5 pg 27.0-33.0 MCHC 32.6 g/dL 32.0-37.5 PLT 472 H 150-400 MPV 10.2 fL 9.1-13.0 RDW 13.7 11.5-14.5 Jul 08, 2024 09:54 AM [facility] PHOSPHORUS Specimen Type: PLASMA Comment: Specimen received in Lab at: [id number] Ordering Provider: JUANCARLOS ECHOLS Report Released Date/Time: Jul 07, 2024 04:49 PM Reporting Lab: [facility] [address] Performing Lab: [facility] [address] PHOSPHORUS 2.6 mg/dL 2.3-4.3 Jul 08, 2024 09:54 AM [facility] BASIC METABOLIC PANEL+MG Specimen Type: PLASMA Comment: Specimen received in Lab at: [id number] Ordering Provider: JUANCARLOS ECHOLS Report Released Date/Time: Jul 07, 2024 04:49 PM Reporting Lab: [facility] [address] Performing Lab: [facility] [address] CREATININE 0.9 mg/dL 0.7-1.2 UREA NITROGEN 26 mg/dL 8-26 GLUCOSE 128 mg/dL H 70-100 SODIUM 134 mmol/L L 136-145 POTASSIUM 3.4 mmol/L L 3.5-5.1 CHLORIDE 100 mmol/L 98-107 CO2 24 mmol/L 22-29 CALCIUM 9.8 mg/dL 8.4-10.2 MAGNESIUM 1.8 mg/dL 1.6-2.6 ANION GAP 10 mmol/L 5-15 .CREAT EGFR(CKD-EPI) >90 >60 Jul 07, 2024 02:00 PM [facility] C DIFF PANEL Specimen Type: FECES No comment entered. Ordering Provider: JEVON ZAZUETA Report Released Date/Time: Jul 07, 2024 12:26 PM Reporting Lab: [facility] [address] Performing Lab: [facility] [address] C DIFF TOX B GENE PCR NEGATIVE Negative Jul 07, 2024 07:41 AM [facility] PHOSPHORUS Specimen Type: PLASMA No comment entered. Ordering Provider: JEVON ZAZUETA Report Released Date/Time: Jul 06, 2024 03:44 PM Reporting Lab: [facility] [address] Performing Lab: [facility] [address] PHOSPHORUS 3.1 mg/dL 2.3-4.3 Jul 07, 2024 07:41 AM [facility] BASIC METABOLIC PANEL+MG Specimen Type: PLASMA No comment entered. Ordering Provider: JEVON ZAZUETA Report Released Date/Time: Jul 06, 2024 03:44 PM Reporting Lab: [facility] [phone] Performing Lab: [facility] [address] CREATININE 0.9 mg/dL 0.7-1.2 UREA NITROGEN 20 mg/dL 8-26 GLUCOSE 157 mg/dL H 70-100 SODIUM 136 mmol/L 136-145 POTASSIUM 3.7 mmol/L 3.5-5.1 CHLORIDE 102 mmol/L 98-107 CO2 21 mmol/L L 22-29 CALCIUM 9.8 mg/dL 8.4-10.2 MAGNESIUM 1.9 mg/dL 1.6-2.6 ANION GAP 13 mmol/L 5-15 .CREAT EGFR(CKD-EPI) >90 >60 Jul 07, 2024 07:40 AM [facility] CBC Specimen Type: BLOOD No comment entered. Ordering Provider: JEVON ZAZUETA Report Released Date/Time: Jul 06, 2024 03:44 PM Reporting Lab: [facility] [address] Performing Lab: [facility] [address] WBC 21.2 H 4.0-11.0 RBC 5.09 4.60-6.20 HGB 15.9 g/dL 13.5-17.9 HCT 48.3 41.0-54.0 MCV 94.9 fL 80.0-100.0 MCH 31.2 pg 27.0-33.0 MCHC 32.9 g/dL 32.0-37.5 PLT 500 H 150-400 MPV 10.3 fL 9.1-13.0 RDW 13.6 11.5-14.5 Jul 06, 2024 07:21 AM [facility] CBC Specimen Type: BLOOD No comment entered. Ordering Provider: JEVON ZAZUETA Report Released Date/Time: Jul 05, 2024 01:22 PM Reporting Lab: [facility] [address] Performing Lab: [facility] [address] WBC 18.0 H 4.0-11.0 RBC 4.83 4.60-6.20 HGB 14.6 g/dL 13.5-17.9 HCT 45.5 41.0-54.0 MCV 94.2 fL 80.0-100.0 MCH 30.2 pg 27.0-33.0 MCHC 32.1 g/dL 32.0-37.5 PLT 368 150-400 MPV 10.4 fL 9.1-13.0 RDW 13.6 11.5-14.5 Jul 06, 2024 07:21 AM [facility] PHOSPHORUS Specimen Type: PLASMA No comment entered. Ordering Provider: JEVON ZAZUETA Report Released Date/Time: Jul 05, 2024 01:22 PM Reporting Lab: [facility] [address] Performing Lab: [facility] [address] PHOSPHORUS 3.6 mg/dL 2.3-4.3 Jul 06, 2024 07:21 AM [facility] BASIC METABOLIC PANEL+MG Specimen Type: PLASMA No comment entered. Ordering Provider: JEVON ZAZUETA Report Released Date/Time: Jul 05, 2024 01:22 PM Reporting Lab: [facility] [address] Performing Lab: [facility] [address] CREATININE 0.7 mg/dL 0.7-1.2 UREA NITROGEN 12 mg/dL 8-26 GLUCOSE 108 mg/dL H 70-100 SODIUM 138 mmol/L 136-145 POTASSIUM 3.4 mmol/L L 3.5-5.1 CHLORIDE 104 mmol/L 98-107 CO2 20 mmol/L L 22-29 CALCIUM 9.3 mg/dL 8.4-10.2 MAGNESIUM 1.9 mg/dL 1.6-2.6 ANION GAP 14 mmol/L 5-15 .CREAT EGFR(CKD-EPI) >90 >60 Jul 05, 2024 07:17 AM [facility] MAGNESIUM Specimen Type: PLASMA No comment entered. Ordering Provider: JUANCARLOS ECHOLS Report Released Date/Time: Jul 04, 2024 09:39 AM Reporting Lab: [facility] [address] Performing Lab: [facility] [address] MAGNESIUM 2.0 mg/dL 1.6-2.6 Jul 05, 2024 07:17 AM [facility] PHOSPHORUS Specimen Type: PLASMA No comment entered. Ordering Provider: JUANCARLOS ECHOLS S Report Released Date/Time: Jul 04, 2024 09:39 AM Reporting Lab: [facility] [address] Performing Lab: [facility] [address] PHOSPHORUS 2.0 mg/dL L 2.3-4.3 Jul 05, 2024 07:17 AM [facility] BASIC METABOLIC PANEL+MG Specimen Type: PLASMA No comment entered. Ordering Provider: JUANCARLOS ECHOLS S Report Released Date/Time: Jul 04, 2024 09:39 AM Reporting Lab: [facility] [address] Performing Lab: [facility] [address] CREATININE 0.7 mg/dL 0.7-1.2 UREA NITROGEN 12 mg/dL 8-26 GLUCOSE 84 mg/dL 70-100 SODIUM 135 mmol/L L 136-145 POTASSIUM 3.8 mmol/L 3.5-5.1 CHLORIDE 104 mmol/L 98-107 CO2 24 mmol/L 22-29 CALCIUM 9.3 mg/dL 8.4-10.2 MAGNESIUM 2.0 mg/dL 1.6-2.6 ANION GAP 7 mmol/L 5-15 .CREAT EGFR(CKD-EPI) >90 >60 Jul 05, 2024 07:16 AM [facility] CBC Specimen Type: BLOOD No comment entered. Ordering Provider: JUANCARLOS ECHOLS S Report Released Date/Time: Jul 04, 2024 09:39 AM Reporting Lab: [facility] [address] Performing Lab: [facility] [address] WBC 18.3 H 4.0-11.0 RBC 4.49 L 4.60-6.20 HGB 14.1 g/dL 13.5-17.9 HCT 43.4 41.0-54.0 MCV 96.7 fL 80.0-100.0 MCH 31.4 pg 27.0-33.0 MCHC 32.5 g/dL 32.0-37.5 PLT 317 150-400 MPV 10.0 fL 9.1-13.0 RDW 13.9 11.5-14.5 Jul 04, 2024 07:17 AM [facility] BASIC METABOLIC PANEL+MG Specimen Type: PLASMA No comment entered. Ordering Provider: GABINO CAMERON Report Released Date/Time: Jul 03, 2024 06:31 PM Reporting Lab: [facility] [address] Performing Lab: [facility] [address] CREATININE 0.7 mg/dL 0.7-1.2 UREA NITROGEN 16 mg/dL 8-26 GLUCOSE 129 mg/dL H 70-100 SODIUM 137 mmol/L 136-145 POTASSIUM 3.7 mmol/L 3.5-5.1 CHLORIDE 107 mmol/L 98-107 CO2 22 mmol/L 22-29 CALCIUM 9.0 mg/dL 8.4-10.2 MAGNESIUM 1.9 mg/dL 1.6-2.6 ANION GAP 8 mmol/L 5-15 .CREAT EGFR(CKD-EPI) >90 >60 Jul 04, 2024 07:17 AM [facility] PHOSPHORUS Specimen Type: PLASMA No comment entered. Ordering Provider: GABINO CAMERON Report Released Date/Time: Jul 03, 2024 06:31 PM Reporting Lab: [facility] [address] Performing Lab: [facility] [address] PHOSPHORUS 2.8 mg/dL 2.3-4.3 Jul 04, 2024 07:16 AM [facility] CBC Specimen Type: BLOOD No comment entered. Ordering Provider: GABINO CAMERON Report Released Date/Time: Jul 03, 2024 06:31 PM Reporting Lab: [facility] [address] Performing Lab: [facility] [address] WBC 20.6 H 4.0-11.0 RBC 4.63 4.60-6.20 HGB 14.2 g/dL 13.5-17.9 HCT 43.4 41.0-54.0 MCV 93.7 fL 80.0-100.0 MCH 30.7 pg 27.0-33.0 MCHC 32.7 g/dL 32.0-37.5 PLT 329 150-400 MPV 10.4 fL 9.1-13.0 RDW 13.8 11.5-14.5 Jul 04, 2024 07:16 AM [facility] CBC & DIFF Specimen Type: BLOOD Comment: Manual Differential Performed Ordering Provider: GABINO CAMERON Report Released Date/Time: Jul 03, 2024 06:31 PM Reporting Lab: [facility] [address] Performing Lab: [facility] [address] WBC 20.6 H 4.0-11.0 RBC 4.63 4.60-6.20 [...] MORPHOLOGY PRESENT Jul 04, 2024 07:15 AM [facility] BNP Specimen Type: PLASMA No comment entered. Ordering Provider: GABINO CAMERON Report Released Date/Time: Jul 03, 2024 06:31 PM Reporting Lab: [facility] [address] Performing Lab: [facility] [address] BNP 292 pg/mL H <99 Jul 03, 2024 10:32 PM [facility] FINGERSTICK GLUCOSE Specimen Type: BLOOD Comment: Save Result Nurse Notified Ordering Provider: KATELYNN PERSON Report Released Date/Time: Jul 03, 2024 10:50 PM Reporting Lab: [facility] [address] Performing Lab: [facility] [address] FINGERSTICK GLUCOSE 126 mg/dL H 70-100 Jul 03, 2024 05:33 PM [facility] FINGERSTICK GLUCOSE Specimen Type: BLOOD Comment: Save Result Nurse Notified Ordering Provider: KATELYNN PERSON Report Released Date/Time: Jul 03, 2024 05:46 PM Reporting Lab: [facility] [address] Performing Lab: [facility] [address] FINGERSTICK GLUCOSE 141 mg/dL H 70-100 Jul 03, 2024 02:31 PM [facility] POC ABG/ELECTROLYTES Specimen Type: ARTERIAL BLOOD Comment: FIO2 = 97% Patient Temp: 36.0 C Sample Type = ARTERIAL Ordering Provider: MAZIN ARREDONDO Report Released Date/Time: Jul 03, 2024 01:48 PM Reporting Lab: [facility] [address] Performing Lab: [facility] [address] POC PH 7.387 7.35-7.45 POC PCO2 34.4 [...] H 80.0-105.0 Jul 03, 2024 01:05 PM [facility] POC ABG/ELECTROLYTES Specimen Type: ARTERIAL BLOOD Comment: FIO2 = 53% Patient Temp: 36.2 C Sample Type = ARTERIAL Ordering Provider: MAZIN ARREDONDO Report Released Date/Time: Jul 03, 2024 01:48 PM Reporting Lab: [facility] [address] Performing Lab: [facility] [address] POC PH 7.280 L 7.35-7.45 POC PCO2 [...] mm[Hg] 80.0-105.0 Jul 03, 2024 06:15 AM [facility] URINALYSIS Specimen Type: URINE No comment entered. Ordering Provider: MARYBETH POWELL Report Released Date/Time: Jun 12, 2024 04:01 PM Reporting Lab: [facility] [address] Performing Lab: [facility] [address] URINE COLOR YELLOW SPECIFIC GRAVITY 1.031 1.003-1.03 [...] 250 NEGATIVE Jul 03, 2024 06:13 AM [facility] CBC Specimen Type: BLOOD No comment entered. Ordering Provider: MARYBETH POWELL Report Released Date/Time: Jun 12, 2024 03:59 PM Reporting Lab: [facility] [address] Performing Lab: [facility] [address] WBC 15.8 H 4.0-11.0 RBC 5.11 4.60-6.20 HGB 16.1 g/dL 13.5-17.9 HCT 49.1 41.0-54.0 MCV 96.1 fL 80.0-100.0 MCH 31.5 pg 27.0-33.0 MCHC 32.8 g/dL 32.0-37.5 PLT 357 150-400 MPV 9.8 fL 9.1-13.0 RDW 13.7 11.5-14.5 Jun 24, 2024 09:50 AM [facility] BASIC METABOLIC PANEL+MG Specimen Type: PLASMA Comment: Specimen received in Lab at: [id number] Ordering Provider: JEVON ZAZUETA Report Released Date/Time: Jun 23, 2024 06:07 PM Reporting Lab: [facility] [address] Performing Lab: [facility] [address] CREATININE 0.8 mg/dL 0.7-1.2 UREA NITROGEN 13 mg/dL 8-26 GLUCOSE 135 mg/dL H 70-100 SODIUM 135 mmol/L L 136-145 POTASSIUM 3.6 mmol/L 3.5-5.1 CHLORIDE 103 mmol/L 98-107 CO2 24 mmol/L 22-29 CALCIUM 9.2 mg/dL 8.4-10.2 MAGNESIUM 1.9 mg/dL 1.6-2.6 ANION GAP 8 mmol/L 5-15 .CREAT EGFR(CKD-EPI) >90 >60 Jun 24, 2024 09:50 AM [facility] CBC Specimen Type: BLOOD Comment: Specimen received in Lab at: 0948 Ordering Provider: JEVON ZAZUETA Report Released Date/Time: Jun 23, 2024 06:07 PM Reporting Lab: [facility] [address] Performing Lab: [facility] [address] WBC 15.5 H 4.0-11.0 RBC 4.93 4.60-6.20 HGB 15.2 g/dL 13.5-17.9 HCT 46.5 41.0-54.0 MCV 94.3 fL 80.0-100.0 MCH 30.8 pg 27.0-33.0 MCHC 32.7 g/dL 32.0-37.5 PLT 223 150-400 MPV 11.4 fL 9.1-13.0 RDW 13.9 11.5-14.5 Jun 23, 2024 07:52 AM [facility] COMPREHENSIVE METABOLIC PANEL+MG Specimen Type: PLASMA No comment entered. Ordering Provider: JEVON ZAZUETA Report Released Date/Time: Jun 22, 2024 05:51 PM Reporting Lab: [facility] [address] Performing Lab: [facility] [address] CREATININE 0.7 mg/dL 0.7-1.2 UREA NITROGEN 16 [...] >90 >60 Jun 23, 2024 07:52 AM [facility] CBC & DIFF Specimen Type: BLOOD Comment: Automated Differential Performed Ordering Provider: JEVON ZAZUETA Report Released Date/Time: Jun 22, 2024 05:51 PM Reporting Lab: [facility] [address] Performing Lab: [facility] [address] WBC 14.9 H 4.0-11.0 RBC 5.09 4.60-6.20 [...] 0.1 0.0-0.1 Jun 22, 2024 06:10 PM [facility] CBC Specimen Type: BLOOD No comment entered. Ordering Provider: JEVON ZAZUETA Report Released Date/Time: Jun 22, 2024 05:51 PM Reporting Lab: [facility] [address] Performing Lab: [facility] [address] WBC 16.9 H 4.0-11.0 RBC 5.28 4.60-6.20 HGB 16.9 g/dL 13.5-17.9 HCT 50.4 41.0-54.0 MCV 95.5 fL 80.0-100.0 MCH 32.0 pg 27.0-33.0 MCHC 33.5 g/dL 32.0-37.5 PLT 223 150-400 MPV 10.9 fL 9.1-13.0 RDW 14.0 11.5-14.5 Jun 22, 2024 06:10 PM [facility] COMPREHENSIVE METABOLIC PANEL+MG Specimen Type: PLASMA No comment entered. Ordering Provider: JEVON ZAZUETA Report Released Date/Time: Jun 22, 2024 05:51 PM Reporting Lab: [facility] [address] Performing Lab: [facility] [address] CREATININE 0.7 mg/dL 0.7-1.2 UREA NITROGEN 17 [...] >90 >60 Jun 21, 2024 06:48 PM [facility] URINALYSIS Specimen Type: URINE No comment entered. Ordering Provider: DELIA MARTINEZ Report Released Date/Time: Jun 21, 2024 05:45 PM Reporting Lab: [facility] [address] Performing Lab: [facility] [address] URINE COLOR YELLOW SPECIFIC GRAVITY 1.041 H [...] 500 NEGATIVE Jun 21, 2024 05:34 PM [facility] POC CREATININE Specimen Type: BLOOD No comment entered. Ordering Provider: DELIA MARTINEZ Report Released Date/Time: Jun 21, 2024 06:07 PM Reporting Lab: [facility] [address] Performing Lab: [facility] [address] POC CREATININE 1.1 mg/dL 0.6-1.3 Jun 21, 2024 05:30 PM [facility] POC ABG/LACTATE Specimen Type: VENOUS BLOOD No comment entered. Ordering Provider: DELIA MARTINEZ Report Released Date/Time: Jun 21, 2024 06:07 PM Reporting Lab: [facility] [address] Performing Lab: [facility] [address] POC PH 7.470 H 7.31-7.41 POC PCO2 31.2 mm[Hg] L 41.00-51 .0 0 POC PO2 46 mm[Hg] H 35.0-40.0 POC TCO2 24 mmol/L 24.0-29.0 POC HCO3 22.7 mmol/L L 23.0-28.0 POC BE ECT -1 mmol/L POC SO2 85 H 70-75 POC LACTATE 1.85 mmol/L 0.90-1.70 Jun 21, 2024 05:24 PM [facility] PROTHROMBIN TIME/INR Specimen Type: PLASMA No comment entered. Ordering Provider: DELIA MARTINEZ Report Released Date/Time: Jun 21, 2024 05:30 PM Reporting Lab: [facility] [address] Performing Lab: [facility] [address] .INR 1.2 H 0.8-1.1 .PT 13.9 s H 9.4-12.5 Jun 21, 2024 05:24 PM [facility] LIPASE Specimen Type: PLASMA No comment entered. Ordering Provider: DELIA MARTINEZ Report Released Date/Time: Jun 21, 2024 05:30 PM Reporting Lab: [facility] [address] Performing Lab: [facility] [address] LIPASE 32 U/L <60 Jun 21, 2024 05:24 PM [facility] EXTRA GOLD GEL TUBE Specimen Type: SERUM No comment entered. Ordering Provider: DELIA MARTINEZ Report Released Date/Time: Jun 21, 2024 05:41 PM Reporting Lab: [facility] [address] Performing Lab: [facility] [address] EXTRA GOLD GEL TUBE RECEIVED Jun 21, 2024 05:24 PM [facility] COMPREHENSIVE METABOLIC PANEL+MG Specimen Type: PLASMA No comment entered. Ordering Provider: DELIA MARTINEZ Report Released Date/Time: Jun 21, 2024 05:30 PM Reporting Lab: [facility] [address] Performing Lab: [facility] [address] CREATININE 0.9 mg/dL 0.7-1.2 UREA NITROGEN 29 [...] mg/dL <0.5 Jun 21, 2024 05:24 PM [facility] CBC & DIFF Specimen Type: BLOOD Comment: Manual Differential Performed Ordering Provider: DELIA MARTINEZ Report Released Date/Time: Jun 21, 2024 05:30 PM Reporting Lab: [facility] [address] Performing Lab: [facility] [address] WBC 21.3 H 4.0-11.0 RBC 5.48 4.60-6.20 [...] MORPHOLOGY PRESENT Jun 08, 2024 10:59 AM [facility] PROTHROMBIN TIME/INR Specimen Type: PLASMA No comment entered. Ordering Provider: MARYBETH POWELL Report Released Date/Time: May 28, 2024 09:02 AM Reporting Lab: [facility] [address] Performing Lab: [facility] [address] .INR 1.0 0.8-1.1 .PT 11.8 s 9.4-12.5 Jun 08, 2024 10:59 AM [facility] HEMOGLOBIN A1C Specimen Type: BLOOD [...] May 28, 2024 09:02 AM Reporting Lab: [facility] [address] Performing Lab: [facility] [address] HEMOGLOBIN A1C 4.9 4.0-6.0 Jun 08, 2024 10:59 AM [facility] CBC Specimen Type: BLOOD No comment entered. Ordering Provider: MARYBETH POWELL Report Released Date/Time: May 28, 2024 09:02 AM Reporting Lab: [facility] [address] Performing Lab: [facility] [id number] WBC 16.1 H 4.0-11.0 RBC 5.02 4.60-6.20 HGB 16.0 g/dL 13.5-17.9 HCT 47.1 41.0-54.0 MCV 93.8 fL 80.0-100.0 MCH 31.9 pg 27.0-33.0 MCHC 34.0 g/dL 32.0-37.5 PLT 228 150-400 MPV 10.3 fL 9.1-13.0 RDW 14.6 H 11.5-14.5 Jun 08, 2024 10:59 AM [facility] BASIC METABOLIC PANEL+MG Specimen Type: PLASMA No comment entered. Ordering Provider: MARYBETH POWELL Report Released Date/Time: May 28, 2024 09:02 AM Reporting Lab: [facility] [phone] Performing Lab: [facility] [phone] CREATININE 0.9 mg/dL 0.7-1.2 UREA NITROGEN 15 [...] Source Jun 21, 2024 11:54 PM 7 [facility] Jun 21, 2024 11:29 PM 7 [facility] Jun 21, 2024 11:02 PM 97.9 75 130/75 17 95 7 [facility] Jun 21, 2024 04:51 PM 98.2 100 162/97 16 97 10 [facility] Social History: Smoking Status (Most current) [...] 15, 2024 08:30 AM [facility] 15 YRS OR MORE [facility] May 06, 2023 11:30 AM 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 The data comes from all [facility] facilities. Date/Time Radiology Report Provider Source Jul 08, 2024 10:09 AM CHEST 2 VIEWS PA AND LAT: FLACA WEAVER [id number] -1950 M Exm Date: JUL 08, 2024@10:09 Req Phys: KATELYNN PERSON Loc: 2KG/07-08-2024@11:49 Img Loc: MAIN X-RAY Service: [place] [address] (Case 24 COMPLETE) CHEST 2 VIEWS PA AND LAT (RAD Detailed) CPT:27418 Reason for Study: Uptrending WBC, POD 5 [...] 08, 2024 Date Verified: JUL 08, 2024 [employer] E-Sig: Report: CHEST 2 VIEWS PA AND LAT HISTORY: Uptrending WBC, POD 5 COMPARISON: CT chest 11/12/2022 TECHNIQUE: Frontal and lateral views of the chest, submitted to the [place] National Telerad[facility] Program (NTP) for interpretation. FINDINGS: Lungs: Clear. No focal consolidation. No pulmonary edema. Pleura: No pleural effusion or pneumothorax. Mediastinum: Normal size and contour. Bones: Unremarkable. Impression: No acute cardiopulmonary disease. READING PHYSICIAN: Sarbjit Vaughn M.D. -[id number] 07/08/2024 12:46 EST [facility] National Teleradiology Program [phone] (For Medical Practitioner Use Only) Attention Patients / Veterans: If you have questions or concerns about these test results, please contact your ordering provider or primary care team. Primary Interpreting Staff: RADIOLOGY,OUTSIDE SERVICE, Staff Physician / RADIOLOGY,OUTSIDE SERVICE [facility] Jul 08, 2024 10:[address] (AP) ABDOMEN/PELVIS W CONTRAST: FLACA WEAVER [id number] -1950 M Exm Date: JUL 08, 2024@10:00 Req Phys: KATELYNN PERSON Loc: 2KG/07-08-2024@12:07 [facility] Loc: CT IMAGING Service: [place] [address] (Case 22 COMPLETE) CT (AP) ABDOMEN/PELVIS W CONTRAST(CT Detailed) CPT:08730 Contrast Media : Non-ionic Iodinated Reason for [...] PLASMA .CREAT EGFR(CKD-E >90 Ref: >=60 Allergies: ([place] only) TERAZOSIN (Mar 13, 2015) Report Status: Verified Date Reported: JUL 08, 2024 Date Verified: JUL 08, 2024 [employer] E-Sig: Report: CT (AP) ABDOMEN/PELVIS W CONTRAST HISTORY: POD 5, Uptrending WBC - Concern for Abscess/other infection COMPARISON: June 21, 2024 TECHNIQUE: CT abdomen and pelvis was performed after intravenous contrast. Axial, sagittal and coronal reformatted images. The study was performed at the local [place] facility and images were sent to the [place] [facility] ([facility]) for interpretation. Number [...] as noted above READING PHYSICIAN: Celestino Blanc -[phone] 07/08/2024 13:04 [facility] [phone] (For Medical Practitioner Use Only) Attention Patients / Veterans: If you have questions or concerns about these test results, please contact your ordering provider or primary care team. Primary Interpreting Staff: RADIOLOGY,OUTSIDE SERVICE, Staff Physician / RADIOLOGY,OUTSIDE SERVICE [facility] Jun 22, 2024 11:49 AM ABSCESS DRAIN PLACEMENT PERITONEAL (P): FLACA WEAVER [id number] -1950 M Exm Date: JUN 22, 2024@11:49 Req Phys: ANGELA HOLDEN Loc: [facility]06-22-2024@17:14 Img Loc: INTERVENTIONAL RADIOLOGY Service: [place] [address] (Case [id number] COMPLETE) IR PERITONEAL/RETROPERITONEAL PER(ANI Detailed) CPT:09864 Reason for Study: diverticulitis with abscess (Case [id number] COMPLETE) IR MOD SEDATION 10-22 MIN (ANI Detailed) CPT:86042 Clinical History: [place] IS NOT under investigation for COVID-19 or is COVID-19 negative 73 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 please place abscess drain. Contact number for responsible provider who can be reached for any questions or notifications of critical findings: [phone] n/a LAST CREATININE 0.9 (06/21/24) Report Status: Verified Date Reported: JUN 22, 2024 Date Verified: JUN 22, 2024 Elevator Repairer Apprentice E-Sig:/ES/LISA PENDLETON MD Report: PROCEDURES: Placement of [...] anesthesia. Using real-time CT fluoroscopy, a 5 [place] Vector[employer]esis catheter was advanced into the collection in the left pelvis. A wire was coiled in the collection. The tract into the collection was dilated to accommodate the 12 [place] locking pigtail drainage catheter. There was return [...] Primary Interpreting Staff: LISA PENDLETON MD, RADIOLOGIST (Elevator Repairer Apprentice) /JRT LISA PENDLETON [facility] Jun 22, 2024 11:[address] NEEDLE PLACEMENT (P): FLACA WEAVER [id number] -1950 M Exm Date: JUN 22, 2024@11:48 Req Phys: ANGELA HOLDEN [facility] Loc: [facility]/06-22-2024@17:14 Img Loc: CT IMAGING Service: [place] [address] (Case [id number] COMPLETE) CT SCAN FOR NEEDLE PLACEMENT (CT Detailed) CPT:76955 Reason for Study: l pelvic abscess drain Clinical History: Report Status: Verified Date Reported: JUN 22, 2024 Date Verified: JUN 22, 2024 Elevator Repairer Apprentice E-Sig:/ES/LISA PENDLETON MD Report: PROCEDURES: Placement of [...] anesthesia. Using real-time CT fluoroscopy, a 5 [place] Vector[employer]esis catheter was advanced into the collection in the left pelvis. A wire was coiled in the collection. The tract into the collection was dilated to accommodate the 12 [place] locking pigtail drainage catheter. There was return [...] Primary Interpreting Staff: LISA PENDLETON MD, RADIOLOGIST (Elevator Repairer Apprentice) /JRT LISA PENDLETON [facility] Jun 21, 2024 06:[address] (AP) ABDOMEN/PELVIS (P): FLACA WEAVER [id number] -1950 M Exm Date: JUN 21, 2024@18:09 Req Phys: DELIA MARTINEZ Loc: [facility] (Re Img Loc: CT IMAGING Service: [place] [address] (Case [id number] COMPLETE) CT (AP) ABDOMEN/PELVIS W CONTRAST(CT Detailed) CPT:59208 Contrast Media : Non-ionic Iodinated Reason for [...] PLASMA .CREAT EGFR(CKD-E >90 Ref: >=60 Allergies: ([place] only) TERAZOSIN (Mar 13, 2015) Defer to [...] 21, 2024 Date Verified: JUN 21, 2024 Elevator Repairer Apprentice E-Sig:/ES/CARLOS A CUNNINGHAM DO Report: EXAMINATION: CT [...] Interpreting Staff: CARLOS A CUNNINGHAM DO, RADIOLOGIST (Elevator Repairer Apprentice) /CARLOS A ROWELL [facility] May 25, 2024 09:00 AM IR FISTULOGRAM OR SINOGRAM : FLACA WEAVER [id number] -1950 M Exm Date: MAY 25, 2024@09:00 Req Phys: AMINTA PRUITT Loc: [facility]RAY INTERVENTIONAL RADIO Img Loc: INTERVENTIONAL RADIOLOGY Service: [place] [address] (Case [id number] COMPLETE) IR FISTULOGRAM OR SINOGRAM (ANI Detailed) CPT:88233 Contrast Media : unspecified contrast media Reason [...] 25, 2024 Date Verified: MAY 25, 2024 Elevator Repairer Apprentice E-Sig:/ES/DAVID BURNS MD Report: PROCEDURES 05/25/2024 9:48 [...] Primary Interpreting Staff: DAVID BURNS MD, RADIOLOGIST (Elevator Repairer Apprentice) /CSS DAVID BURNS [facility] May 25, 2024 08:[address] (AP) ABDOMEN/PELVIS (P): FLACA WEAVER [id number] -1950 M Exm Date: MAY 25, 2024@08:23 Req Phys: DAVID BURNS Pat Loc: [facility] XRAY INTERVENTIONAL RADIO Img Loc: CT IMAGING Service: [place] [address] (Case [id number] COMPLETE) CT (AP) ABDOMEN/PELVIS W/O CONTRA(CT Detailed) CPT:71975 Reason for Study: assess abscess and possible [...] PLASMA .CREAT EGFR(CKD-E >90 Ref: >=60 Allergies: ([place] only) TERAZOSIN (Mar 13, 2015) Report Status: Verified Date Reported: MAY 25, 2024 Date Verified: MAY 25, 2024 Elevator Repairer Apprentice E-Sig:/ES/JESSENIA GOODMAN MD Report: EXAM: CT abdomen and pelvis without intravenous contrast. 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 TECHNIQUE: Helical acquisition of image data was performed for the abdomen and pelvis without intravenous contrast. Dose: 512.57 mGy*cm COMPARISON: CT abdomen pelvis with contrast 05/11/[address] abdomen pelvis 04/23/2024.; CT abdomen pelvis 05/05/2020 FINDINGS: CLOTH BOLT BANDER: Pigtail catheter projecting over the left hemipelvis [...] Primary Interpreting Staff: JESSENIA GOODMAN MD, RADIOLOGIST (Elevator Repairer Apprentice) Primary Interpreting Resident: YOHANNES MELO DO, VELVET WEAVER /CMJESSENIA SOSA [facility] Pathology Reports: +/- 30 [...] COSIGNER: URGENCY: STATUS: COMPLETED $APHDR Reporting Lab: [facility] [CLIA# [id number]] [place] [address] - - - - - - - [...] - - - PATHOLOGY REPORT Accession No. [id number] - - - - - - - [...] - PATHOLOGY REPORT Accession No. [id number] - - - - - - - [...] Second circumferential surgical margin, en face; E-F: Floor Coverings Installer diverticula; G: Floor Coverings Installer section of mesentery; H: Random hospital sales [...] One colonic tissue ring, bisected transversely. SS. (D[facility]: Microscopic examination performed. DIAGNOSIS: 1. Colon, sigmoid, sigmoidectomy-- - Diverticulosis with perforation and focal abscess formation 2. Colon, anastomotic rings, excision-- - Viable colonic mucosa without diagnostic abnormality /es/ EDUARDO PALOMARES MD STAFF PATHOLOGIST Signed Jul 06, 2024@10:40 Performing Laboratory: Surgical Pathology Report Performed By: [facility] [CLIA# [id number]] [place] [address] $FTR - - - - - - - - - - - - - - - - - - - - - - - - - - - - - - - - - - - - - - - - (End of report) EDUARDO PALOMARES MD [facility] Date Jul 06, 2024 - - - - - - - - - - - - - - - - - - - - - - - - - - - - - - - - - - - - - - - - FLACA WEAVER STANDARD FORM 515 ID:[id number] SEX:M :1950 AGE: 73 LOC:33204 ADM:Jun DX:DIVERTICULITIS PCP: Jatinder Cabrera /alexi/ EDUARDO PALOMARES MD STAFF PATHOLOGIST Signed: 07/06/2024 10:40 EDUARDO PALOMARES [facility] Jun 22, 2024 01:15 PM LR MICROBIOLOGY RE PORT: Reporting Lab: [facility] [CLIA# [id number]] [place] [address] Accession [UID]: [id number] [[id number]] Received: Jun 22, 2024@13:38 Collection sample: FLUID Collection date: Jun 22, 2024 13:15 Provider: ANGELA HOLDEN Comment on specimen: LLQ ABSCESS, RECEIVED IN ANAEROBIC TRANSPORT VIAL Test(s) ordered: GRAM STAIN.................... completed: Jun 22, 2024 15:03 CULTURE & SUSCEPTIBILITY...... completed: Jun 25, 2024 * BACTERIOLOGY FINAL REPORT => Jun 25, 2024 10:56 [facility] CODE: [id number] GRAM STAIN: DIRECT SMEAR of specimen before [...] -=--=--=--=--=--=--=-- Performing Laboratory: Bacteriology Report Performed By: [facility] [CLIA# [id number]] [place] [address] [facility] Jun 22, 2024 01:15 PM LR MICROBIOLOGY RE PORT: Reporting Lab: [facility] [CLIA# [id number]] [place] [address] Accession [UID]: [id number] [[id number]] Received: Jun 22, 2024@13:38 Collection sample: FLUID Collection date: Jun 22, 2024 13:15 Provider: ANGELA HOLDEN Comment on specimen: LLQ ABSCESS, RECEIVED IN ANAEROBIC TRANSPORT VIAL Test(s) ordered: ANAEROBIC CULTURE............. completed: Jun 28, 2024 * BACTERIOLOGY FINAL REPORT => Jun 28, 2024 10:08 TECH CODE: [id number] CULTURE RESULTS: HEAVY GROWTH MIXED ANAEROBES Comment: including the followin+ Bacteroides fragilis 4+ Bacteroides vulgatus 4+ Clostridium innocuum Beta-lactamase negative 4+ Bacteroides caccae 4+ Parvimonas micra 4+ Bacteroides uniformis 4+ Gemella morbillorum 4+ anaerobic small, Gram Positive Rods 4+ Bacteroides thetaiotaomicron Standard workup is now complete. Bacteriology Remark(s): THIS REPORT IS FINAL =--=--=--=--=--=--=--=--=--= --=--=--=--=--=--=--=--=--=- -=--=--=--=--=--=--=-- Performing Laboratory: Bacteriology Report Performed By: [facility] [IA# [id number]] [place] [address] [facility] Jun 21, 2024 06:12 PM LR MICROBIOLOGY RE PORT: Reporting Lab: [facility] [IA# [id number]] [place] [address] Accession [UID]: [id number] [[id number]] Received: Jun 21, 2024@18:12 Collection sample: BLOOD [...] -=--=--=--=--=--=--=-- Performing Laboratory: Bacteriology Report Performed By: [facility] [IA# [id number]] [place] [address] [facility] Jun 21, 2024 06:11 PM LR MICROBIOLOGY RE PORT: Reporting Lab: [facility] [IA# [id number]] [place] [address] Accession [UID]: [id number] [[id number]] Received: Jun 21, 2024@18:11 Collection sample: BLOOD [...] -=--=--=--=--=--=--=-- Performing Laboratory: Bacteriology Report Performed By: [facility] [CLIA# [id number]] [place] [address] [facility] Jun 08, 2024 11:00 AM LR MICROBIOLOGY RE PORT: Reporting Lab: [facility] [CLIA# [id number]] [place] [address] Accession [UID]: [id number] [[id number]] Received: Jun 08, 2024@11:00 Collection sample: URINE Collection date: Jun 08, 2024 11:00 Provider: MARYBETH POWELL Comment on specimen: urine Test(s) ordered: CULTURE & SUSCEPTIBILITY...... completed: Jun 09, 2024 * BACTERIOLOGY FINAL REPORT => Jun 09, 2024 19:12 TECH CODE: [id number] CULTURE RESULTS: ESCHERICHIA COLI - Quantity: >100,000 [...] -=--=--=--=--=--=--=-- Performing Laboratory: Bacteriology Report Performed By: [facility] [CLIA# [id number]] [place] [address] [facility]
--- OUTSIDE RECORDS SUMMARY | 2024-07-16 07:30 | XMS_ITS ---
[place] DAILY HOSPITALIZATION DATA [facility] Encounter Summary Created on: July 16, 2024 MEG FLACADARCI LOBO : 1950 Sex: Male Author Name [facility] [place] [facility] [place] Address [address] [place] [address] Care Team Providers Care Support Teacher Name Role Phone JATINDER CABRERA Primary [...] PART A Sep 29, 2016 PART A [phone] JUDY WEAVER PATIENT Selected Encounter This section includes the information on record at [place] for the Encounter. Date/Time Encounter Type Encounter Description Reason Pro vider Source Jun 22, 2024 01:32 AM Inpatient Visit DAILY HOSPITALIZATION DATA [facility] Encounter Template Text not used by [place] [...] 27, 2024 07:00 AM AMBULATORY - NONE [facility] Jun 27, 2024 07:30 AM AMBULATORY - MEDICINE [facility] Jun 27, 2024 08:00 AM AMBULATORY - MEDICINE [facility] Jul 03, 2024 05:55 AM AMBULATORY - NONE [facility] Jul 13, 2024 08:15 AM AMBULATORY - NONE [facility] Active, Pending, and Scheduled Orders This section includes a listing of several types of active, pending, and scheduled orders, including clinic medications orders, diagnostic test orders, procedure orders and consult orders; where the start date of the order is 45 days before the date of the Encounter or 45 days after the date of theEncounter. The data comes from all [facility] facilities. Test Date/Time Test [...] Order TYPE & SCREEN - LAB BLOOD [facility] Jul 03, 2024 12:00 AM Laboratory - Blood Bank Order TYPE & SCREEN - LAB BLOOD [facility] Jul 16, 2024 12:00 AM Laboratory - [...] Jul 09, 2024 12:23 PM Reporting Lab: [facility] [address] Performing Lab: [facility] [address] PHOSPHORUS 3.0 mg/dL 2.3-4.3 Jul 10, 2024 07:16 AM [facility] BASIC METABOLIC PANEL+MG Specimen Type: PLASMA No comment entered. Ordering Provider: JUANCARLOS ECHOLS Report Released Date/Time: Jul 09, 2024 12:23 PM Reporting Lab: [facility] [address] Performing Lab: [facility] [address] CREATININE 0.7 mg/dL 0.7-1.2 UREA NITROGEN 27 [...] 12:23 PM Reporting Lab: [facility] [address] Performing Lab: [facility] [address] WBC 18.8 H 4.0-11.0 RBC 5.08 4.60-6.20 [...] 06:18 PM Reporting Lab: [facility] [address] Performing Lab: [facility] [address] WBC 15.3 H 4.0-11.0 RBC 4.91 4.60-6.20 [...] 08:41 AM Reporting Lab: [facility] [address] Performing Lab: [facility] [address] URINE COLOR YELLOW SPECIFIC GRAVITY >1.050 H [...] 04:49 PM Reporting Lab: [facility] [address] Performing Lab: [facility] [address] WBC 17.5 H 4.0-11.0 RBC 4.88 4.60-6.20 [...] 04:49 PM Reporting Lab: [facility] [address] Performing Lab: [facility] [address] PHOSPHORUS 2.6 mg/dL 2.3-4.3 Jul 08, 2024 09:54 AM [facility] BASIC METABOLIC PANEL+MG Specimen Type: PLASMA Comment: Specimen received in Lab at: 0952 Ordering Provider: JUANCARLOS ECHOLS Report Released Date/Time: Jul 07, 2024 04:49 PM Reporting Lab: [facility] [address] Performing Lab: [facility] [address] CREATININE 0.9 mg/dL 0.7-1.2 UREA NITROGEN 26 [...] 12:26 PM Reporting Lab: [facility] [address] Performing Lab: [facility] [address] C DIFF TOX B GENE PCR NEGATIVE Negative Jul 07, 2024 07:41 AM [facility] PHOSPHORUS Specimen Type: PLASMA No comment entered. Ordering Provider: JEVON ZAZUETA Report Released Date/Time: Jul 06, 2024 03:44 PM Reporting Lab: [facility] [address] Performing Lab: [facility] [address] PHOSPHORUS 3.1 mg/dL 2.3-4.3 Jul 07, 2024 07:41 AM [facility] BASIC METABOLIC PANEL+MG Specimen Type: PLASMA No comment entered. Ordering Provider: JEVON ZAZUETA Report Released Date/Time: Jul 06, 2024 03:44 PM Reporting Lab: [facility] [address] Performing Lab: [facility] [address] CREATININE 0.9 mg/dL 0.7-1.2 UREA NITROGEN 20 [...] 03:44 PM Reporting Lab: [facility] [address] Performing Lab: [facility] [address] WBC 21.2 H 4.0-11.0 RBC 5.09 4.60-6.20 [...] 01:22 PM Reporting Lab: [facility] [address] Performing Lab: [facility] [address] WBC 18.0 H 4.0-11.0 RBC 4.83 4.60-6.20 [...] 01:22 PM Reporting Lab: [facility] [address] Performing Lab: [facility] [address] PHOSPHORUS 3.6 mg/dL 2.3-4.3 Jul 06, 2024 07:21 AM [facility] BASIC METABOLIC PANEL+MG Specimen Type: PLASMA No comment entered. Ordering Provider: JEVON ZAZUETA Report Released Date/Time: Jul 05, 2024 01:22 PM Reporting Lab: [facility] [address] Performing Lab: [facility] [address] CREATININE 0.7 mg/dL 0.7-1.2 UREA NITROGEN 12 [...] 09:39 AM Reporting Lab: [facility] [address] Performing Lab: [facility] [address] MAGNESIUM 2.0 mg/dL 1.6-2.6 Jul 05, 2024 07:17 AM [facility] PHOSPHORUS Specimen Type: PLASMA No comment entered. Ordering Provider: JUANCARLOS ECHOLS S Report Released Date/Time: Jul 04, 2024 09:39 AM Reporting Lab: [facility] [address] Performing Lab: [facility] [address] PHOSPHORUS 2.0 mg/dL L 2.3-4.3 Jul 05, 2024 07:17 AM [facility] BASIC METABOLIC PANEL+MG Specimen Type: PLASMA No comment entered. Ordering Provider: JUANCARLOS ECHOLS S Report Released Date/Time: Jul 04, 2024 09:39 AM Reporting Lab: [facility] [address] Performing Lab: [facility] [address] CREATININE 0.7 mg/dL 0.7-1.2 UREA NITROGEN 12 [...] 09:39 AM Reporting Lab: [facility] [address] Performing Lab: [facility] [address] WBC 18.3 H 4.0-11.0 RBC 4.49 L [...] 06:31 PM Reporting Lab: [facility] [address] Performing Lab: [facility] [address] CREATININE 0.7 mg/dL 0.7-1.2 UREA NITROGEN 16 mg/dL 8-26 GLUCOSE 129 mg/dL H 70-100 SODIUM 137 mmol/L 136-145 POTASSIUM 3.7 mmol/L 3.5-5.1 CHLORIDE 107 mmol/L 98-107 CO2 22 mmol/L 22-29 CALCIUM 9.0 mg/dL 8.4-10.2 MAGNESIUM 1.9 mg/dL 1.6-2.6 ANION GAP 8 mmol/L 5-15 .CREAT EGFR(CKD-EPI) >90 >60 Jul 04, 2024 07:17 AM [facility] PHOSPHORUS Specimen Type: PLASMA No comment entered. Ordering Provider: GABINO CAMERON Report Released Date/Time: Jul 03, 2024 06:31 PM Reporting Lab: [facility] [address] Performing Lab: [facility] [address] PHOSPHORUS 2.8 mg/dL 2.3-4.3 Jul 04, 2024 07:16 AM [facility] CBC Specimen Type: BLOOD No comment entered. Ordering Provider: GABINO CAMERON Report Released Date/Time: Jul 03, 2024 06:31 PM Reporting Lab: [facility] [address] Performing Lab: [facility] [address] WBC 20.6 H 4.0-11.0 RBC 4.63 4.60-6.20 [...] 06:31 PM Reporting Lab: [facility] [address] Performing Lab: [facility] [address] WBC 20.6 H 4.0-11.0 RBC 4.63 4.60-6.20 [...] 06:31 PM Reporting Lab: [facility] [address] Performing Lab: [facility] [address] BNP 292 pg/mL H <99 Jul 03, 2024 10:32 PM [facility] FINGERSTICK GLUCOSE Specimen Type: BLOOD Comment: Save Result Nurse Notified Ordering Provider: KATELYNN PERSON Report Released Date/Time: Jul 03, 2024 10:50 PM Reporting Lab: [facility] [address] Performing Lab: [facility] [address] FINGERSTICK GLUCOSE 126 mg/dL H 70-100 Jul 03, 2024 05:33 PM [facility] FINGERSTICK GLUCOSE Specimen Type: BLOOD Comment: Save Result Nurse Notified Ordering Provider: KATELYNN PERSON Report Released Date/Time: Jul 03, 2024 05:46 PM Reporting Lab: [facility] [address] Performing Lab: [facility] [address] FINGERSTICK GLUCOSE 141 mg/dL H 70-100 Jul 03, 2024 02:31 PM [facility] POC ABG/ELECTROLYTES Specimen Type: ARTERIAL BLOOD Comment: FIO2 = 97% Patient Temp: 36.0 C Sample Type = ARTERIAL Ordering Provider: MAZIN ARREDONDO Report Released Date/Time: Jul 03, 2024 01:48 PM Reporting Lab: [facility] [address] Performing Lab: [facility] [address] POC PH 7.387 7.35-7.45 POC PCO2 34.4 [...] 01:48 PM Reporting Lab: [facility] [address] Performing Lab: [facility] [address] POC PH 7.280 L 7.35-7.45 POC PCO2 [...] 04:01 PM Reporting Lab: [facility] [address] Performing Lab: [facility] [address] URINE COLOR YELLOW SPECIFIC GRAVITY 1.031 1.003-1.03 [...] 03:59 PM Reporting Lab: [facility] [address] Performing Lab: [facility] [address] WBC 15.8 H 4.0-11.0 RBC 5.11 4.60-6.20 [...] 06:07 PM Reporting Lab: [facility] [address] Performing Lab: [facility] [address] CREATININE 0.8 mg/dL 0.7-1.2 UREA NITROGEN 13 [...] 06:07 PM Reporting Lab: [facility] [address] Performing Lab: [facility] [address] WBC 15.5 H 4.0-11.0 RBC 4.93 4.60-6.20 [...] 05:51 PM Reporting Lab: [facility] [address] Performing Lab: [facility] [address] CREATININE 0.7 mg/dL 0.7-1.2 UREA NITROGEN 16 [...] 05:51 PM Reporting Lab: [facility] [address] Performing Lab: [facility] [address] WBC 14.9 H 4.0-11.0 RBC 5.09 4.60-6.20 [...] 05:51 PM Reporting Lab: [facility] [address] Performing Lab: [facility] [address] WBC 16.9 H 4.0-11.0 RBC 5.28 4.60-6.20 [...] 05:51 PM Reporting Lab: [facility] [address] Performing Lab: [facility] [address] CREATININE 0.7 mg/dL 0.7-1.2 UREA NITROGEN 17 [...] 05:45 PM Reporting Lab: [facility] [address] Performing Lab: [facility] [address] URINE COLOR YELLOW SPECIFIC GRAVITY 1.041 H [...] 06:07 PM Reporting Lab: [facility] [address] Performing Lab: [facility] [address] POC CREATININE 1.1 mg/dL 0.6-1.3 Jun 21, 2024 05:30 PM [facility] POC ABG/LACTATE Specimen Type: VENOUS BLOOD No comment entered. Ordering Provider: DELIA MARTINEZ Report Released Date/Time: Jun 21, 2024 06:07 PM Reporting Lab: [facility] [address] Performing Lab: [facility] [address] POC PH 7.470 H 7.31-7.41 POC PCO2 [...] 05:30 PM Reporting Lab: [facility] [address] Performing Lab: [facility] [address] .INR 1.2 H 0.8-1.1 .PT 13.9 s H 9.4-12.5 Jun 21, 2024 05:24 PM [facility] LIPASE Specimen Type: PLASMA No comment entered. Ordering Provider: DELIA MARTINEZ Report Released Date/Time: Jun 21, 2024 05:30 PM Reporting Lab: [facility] [address] Performing Lab: [facility] [address] LIPASE 32 U/L <60 Jun 21, 2024 05:24 PM [facility] EXTRA GOLD GEL TUBE Specimen Type: SERUM No comment entered. Ordering Provider: DELIA MARTINEZ Report Released Date/Time: Jun 21, 2024 05:41 PM Reporting Lab: [facility] [address] Performing Lab: [facility] [address] EXTRA GOLD GEL TUBE RECEIVED Jun 21, 2024 05:24 PM [facility] COMPREHENSIVE METABOLIC PANEL+MG Specimen Type: PLASMA No comment entered. Ordering Provider: DELIA MARTINEZ Report Released Date/Time: Jun 21, 2024 05:30 PM Reporting Lab: [facility] [address] Performing Lab: [facility] [address] CREATININE 0.9 mg/dL 0.7-1.2 UREA NITROGEN 29 [...] 05:30 PM Reporting Lab: [facility] [address] Performing Lab: [facility] [address] WBC 21.3 H 4.0-11.0 RBC 5.48 4.60-6.20 [...] 09:02 AM Reporting Lab: [facility] [address] Performing Lab: [facility] [address] .INR 1.0 0.8-1.1 .PT 11.8 s 9.4-12.5 Jun 08, 2024 10:59 AM [facility] CBC Specimen Type: BLOOD No comment entered. Ordering Provider: MARYBETH POWELL Report Released Date/Time: May 28, 2024 09:02 AM Reporting Lab: [facility] [address] Performing Lab: [facility] [address] WBC 16.1 H 4.0-11.0 RBC 5.02 4.60-6.20 [...] 09:02 AM Reporting Lab: [facility] [address] Performing Lab: [facility] [address] HEMOGLOBIN A1C 4.9 4.0-6.0 Jun 08, 2024 10:59 AM [facility] BASIC METABOLIC PANEL+MG Specimen Type: PLASMA No comment entered. Ordering Provider: MARYBETH POWELL Report Released Date/Time: May 28, 2024 09:02 AM Reporting Lab: [facility] [address] Performing Lab: [facility] [address] CREATININE 0.9 mg/dL 0.7-1.2 UREA NITROGEN 15 [...] Height Weight Body Mass Index Source Jun 22, 2024 01:40 PM 86 116/59 18 0 [facility] Jun 22, 2024 04:22 AM 7 [facility] Jun 22, 2024 12:22 AM 5 [facility] Social History: Smoking Status (Most [...] 15, 2024 08:30 AM [place]-TOBAC[place] FORMER USER [facility] Tobacco Use History This section includes a history of the smoking, or tobacco-related health factors, that were collected on or before the date of the Encounter. The data comes from the [place] facility where the Encounter took place. Date/Time Smoking Status/Tobacco Use Comment Angelo mott May 15, 2024 08:30 AM VA-TOBACCO QUIT 15 YRS OR MORE [facility] May 06, 2023 11:30 AM [place]-TOBAC[place] FORMER USER [facility] May 06, 2023 11:30 AM [place]-TO[place] 15 YRS [place] MORE [facility] [...] CHEST 2 VIEWS PA AND LAT: FLACA WEAVRE [id number] -1950 M Exm Date: JUL 08, 2024@10:09 Req Phys: KATELYNN PERSON Pat Loc: 07-08-2024@11:49 Img Loc: MAIN X-RAY Service: [place] [address] (Case 24 COMPLETE) CHEST 2 VIEWS PA AND LAT (RAD Detailed) CPT:67928 Reason for Study: Uptrending WBC, POD 5 Clinical History: [place] IS NOT under investigation for COVID-19 or is COVID-19 negative POD 5, work up for uptrending wbc Responsible provider name and phone number to notify for critical findings if other than user placing the order and pager listed below: User placing orders pager: Katelynn Person LAST CREATININE 0.9 (07/07/24) Report Status: Verified Date Reported: JUL 08, 2024 Date Verified: JUL 08, 2024 Ingredient Specialist E-Sig: Report: CHEST 2 VIEWS PA [...] cardiopulmonary disease. READING PHYSICIAN: Sarbjit Vaughn M.D. -[id number] 07/08/2024 12:46 [facility] National Teleradiology Program [phone] (For Medical Practitioner Use Only) Attention Patients / Veterans: If you have questions or concerns about these test results, please contact your ordering provider or primary care team. Primary Interpreting Staff: RADIOLOGY,OUTSIDE SERVICE, Staff Physician / RADIOLOGY,OUTSIDE SERVICE [facility] Jul 08, 2024 10:[address] (AP) ABDOMEN/PELVIS W CONTRAST: FLACA WEAVER [id number] -1950 M Exm Date: JUL 08, 2024@10:00 Req Phys: KATELYNN PERSON Pat Loc: G07-08-2024@12:07 Img Loc: CT IMAGING Service: [place] [address] (Case 22 COMPLETE) CT (AP) ABDOMEN/PELVIS W CONTRAST(CT Detailed) CPT:76224 Contrast Media : Non-ionic Iodinated Reason for [...] PLASMA .CREAT EGFR(CKD-E >90 Ref: >=60 Allergies: ([place] only) TERAZOSIN (Mar 13, 2015) Report Status: Verified Date Reported: JUL 08, 2024 Date Verified: JUL 08, 2024 Ingredient Specialist E-Sig: Report: CT (AP) ABDOMEN/PELVIS W [...] as noted above READING PHYSICIAN: Celestino Blanc -[phone] 07/08/2024 13:04 [facility] National Teleradiology Program [phone] (For Medical Practitioner Use Only) Attention Patients / Veterans: If you have questions or concerns about these test results, please contact your ordering provider or primary care team. Primary Interpreting Staff: RADIOLOGY,OUTSIDE SERVICE, Staff Physician / RADIOLOGY,OUTSIDE SERVICE [facility] Jun 22, 2024 11:49 AM ABSCESS DRAIN PLACEMENT PERITONEAL (P): FLACA WEAVER [id number] -1950 M Exm Date: JUN 22, 2024@11:49 Req Phys: ANGELA HOLDEN Loc: 06-22-2024@17:14 Img Loc: INTERVENTIONAL RADIOLOGY Service: [place] [address] (Case [id number] COMPLETE) IR PERITONEAL/RETROPERITONEAL PER(ANI Detailed) CPT:55349 Reason for Study: diverticulitis with abscess (Case 3570 COMPLETE) IR MOD SEDATION 10-22 MIN (ANI Detailed) CPT:81641 Clinical History: [place] IS NOT under investigation for COVID-19 or is COVID-19 negative 73 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 please place abscess drain. Contact number for responsible provider who can be reached for any questions or notifications of critical findings: [phone] n/a LAST CREATININE 0.9 (06/21/24) Report Status: Verified Date Reported: JUN 22, 2024 Date Verified: JUN 22, 2024 Ingredient Specialist E-Sig:/ES/LISA PENDLETON MD Report: PROCEDURES: Placement [...] Using real-time CT fluoroscopy, a 5 Cymro Angelantoniesis catheter was advanced into the collection in [...] Primary Interpreting Staff: LISA PENDLETON MD, RADIOLOGIST (Ingredient Specialist) /JRLISA [facility] Jun 22, 2024 11:[address] NEEDLE PLACEMENT (P): FLACA WEAVER [id number] -1950 M Exm Date: JUN 22, 2024@11:48 Req Phys: ANGELA HOLDEN Loc: [facility]/06-22-2024@17:14 Img Loc: CT IMAGING Service: [place] [address] (Case [id number] COMPLETE) CT SCAN FOR NEEDLE PLACEMENT (CT Detailed) CPT:08341 Reason for Study: l pelvic abscess drain Clinical History: Report Status: Verified Date Reported: JUN 22, 2024 Date Verified: JUN 22, 2024 Ingredient Specialist E-Sig:/ES/LISA PENDLETON MD Report: PROCEDURES: Placement [...] Using real-time CT fluoroscopy, a 5 Cymro Angelantoniesis catheter was advanced into the collection in [...] Primary Interpreting Staff: LISA PENDLETON MD, RADIOLOGIST (Ingredient Specialist) /JRT LISA PENDLETON [facility] Jun 21, 2024 06:[address] (AP) ABDOMEN/PELVIS (P): FLACA WEAVER [id number] -1950 M Exm Date: JUN 21, 2024@18:09 Req Phys: DELIA MARTINEZ Loc: [facility] EMERGENCY DEPT WALK-IN (Re Img Loc: CT IMAGING Service: [place] [address] (Case [id number] COMPLETE) CT (AP) ABDOMEN/PELVIS W CONTRAST(CT Detailed) CPT:99198 Contrast Media : Non-ionic Iodinated Reason for [...] PLASMA .CREAT EGFR(CKD-E >90 Ref: >=60 Allergies: ([place] only) TERAZOSIN (Mar 13, 2015) Defer to [...] 21, 2024 Date Verified: JUN 21, 2024 Ingredient Specialist E-Sig:/ALEXI/CARLOS A CUNNINGHAM DO Report: EXAMINATION: [...] Interpreting Staff: CARLOS A CUNNINGHAM DO, RADIOLOGIST (Ingredient Specialist) /CARLOS A ROWELL [facility] May 25, 2024 09:00 AM IR FISTULOGRAM OR SINOGRAM : FLACA WEAVER [id number] -1950 M Exm Date: MAY 25, 2024@09:00 Req Phys: AMINTA PRUITT Pat Loc: [facility] XRAY INTERVENTIONAL RADIO Img Loc: INTERVENTIONAL RADIOLOGY Service: [place] [address] (Case [id number] COMPLETE) IR FISTULOGRAM OR SINOGRAM (ANI Detailed) CPT:93749 Contrast Media : unspecified contrast media Reason [...] 25, 2024 Date Verified: MAY 25, 2024 Ingredient Specialist E-Sig:/ES/DAVID BURNS MD Report: PROCEDURES 05/25/2024 9:48 [...] Primary Interpreting Staff: DAVID BURNS MD, RADIOLOGIST (Ingredient Specialist) /CSS DAVID BURNS [facility] May 25, 2024 08:[address] (AP) ABDOMEN/PELVIS (P): FLACA WEAVER [id number] -1950 M Exm Date: MAY 25, 2024@08:23 Req Phys: DAVID BURNS Pat Loc: [facility] XRAY INTERVENTIONAL RADIO Img Loc: CT IMAGING Service: [place] [address] (Case [id number] COMPLETE) CT (AP) ABDOMEN/PELVIS W/O CONTRA(CT Detailed) CPT:92671 Reason for Study: assess abscess and possible [...] PLASMA .CREAT EGFR(CKD-E >90 Ref: >=60 Allergies: ([place] only) TERAZOSIN (Mar 13, 2015) Report Status: Verified Date Reported: MAY 25, 2024 Date Verified: MAY 25, 2024 Ingredient Specialist E-Sig:/ES/JESSENIA GOODMAN MD Report: EXAM: CT abdomen and pelvis without intravenous contrast. 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 TECHNIQUE: Helical acquisition of image data was performed for the abdomen and pelvis without intravenous contrast. Dose: 512.57 mGy*cm COMPARISON: CT abdomen pelvis with contrast 05/11/[address] abdomen pelvis 04/23/2024.; CT abdomen pelvis 05/05/2020 FINDINGS: CLERK SUPERVISOR: Pigtail catheter projecting over the left hemipelvis [...] Primary Interpreting Staff: JESSENIA GOODMAN MD, RADIOLOGIST (Ingredient Specialist) Primary Interpreting Resident: YOHANNES MELO DO, NIGHT SHIFT /CMJESSENIA SOSA [facility] Pathology Reports: [...] Lab: [facility] [CLIA# [id number]] [place] [address] - - - - - - - [...] - PATHOLOGY REPORT Accession No. [id number] - - - - - - - [...] - PATHOLOGY REPORT Accession No. [id number] - - - - - - - [...] Second circumferential surgical margin, en face; E-F: Skirt Trimmer diverticula; G: Skirt Trimmer section of mesentery; H: Random inbound customer service representative section of additional adipose [...] By: [facility] [CLIA# [id number]] [place] [address] $FTR - - - - - - [...] - - FLACA WEAVER STANDARD FORM 515 ID:[id number] SEX:M :1950 AGE: 73 LOC:88757 ADM:Jun DX:DIVERTICULITIS PCP: Jatinder Cabrera /alexi/ EDUARDO PALOMARES MD STAFF PATHOLOGIST Signed: 07/06/2024 10:40 EDUARDO PALOMARES [facility] Jun 22, 2024 01:15 PM LR MICROBIOLOGY RE PORT: Reporting Lab: [facility] [CLIA# [id number]] [place] [address] Accession [UID]: [id number] [[id number]] Received: Jun 22, 2024@13:38 Collection sample: FLUID Collection date: Jun 22, 2024 13:15 Provider: ANGELA HOLDEN Comment on specimen: LLQ ABSCESS, RECEIVED IN ANAEROBIC TRANSPORT VIAL Test(s) ordered: GRAM STAIN.................... completed: Jun 22, 2024 15:03 CULTURE & SUSCEPTIBILITY...... completed: Jun 25, 2024 * BACTERIOLOGY FINAL REPORT => Jun 25, 2024 10:56 TECH CODE: [id number] GRAM STAIN: DIRECT SMEAR of specimen before [...] By: [facility] [CLIA# [id number]] [place] [address] [facility] Jun 22, 2024 01:15 PM LR MICROBIOLOGY RE PORT: Reporting Lab: [facility] [CLIA# [id number]] [place] [address] Accession [UID]: [id number] [[id number]] Received: Jun 22, 2024@13:38 Collection sample: FLUID Collection date: Jun 22, 2024 13:15 Provider: ANGELA HOLDEN Comment on specimen: LLQ ABSCESS, RECEIVED IN ANAEROBIC TRANSPORT VIAL Test(s) ordered: ANAEROBIC CULTURE............. completed: Jun 28, 2024 * BACTERIOLOGY FINAL REPORT => Jun 28, 2024 10:08 [facility] CODE: [id number] CULTURE RESULTS: HEAVY GROWTH MIXED ANAEROBES Comment: [...] Performed By: [facility] [IA# [id number]] [place] [address] [facility] Jun 21, 2024 06:12 PM LR MICROBIOLOGY RE PORT: Reporting Lab: [facility] [[facility]# [id number]] [place] [address] Accession [UID]: [id number] [[id number]] Received: Jun 21, 2024@18:12 Collection sample: BLOOD [...] Performed By: [facility] [[facility]# [id number]] [place] [address] [facility] Jun 21, 2024 06:11 PM LR MICROBIOLOGY RE PORT: Reporting Lab: [facility] [IA# [id number]] [place] [address] Accession [UID]: [id number] [[id number]] Received: Jun 21, 2024@18:11 Collection sample: BLOOD [...] By: [facility] [CLIA# [id number]] [place] [address] [facility] Jun 08, 2024 11:00 AM LR MICROBIOLOGY RE PORT: Reporting Lab: [facility] [CLIA# [id number]] [place] [address] Accession [UID]: [id number] [[id number]] Received: Jun 08, 2024@11:00 Collection sample: URINE Collection date: Jun 08, 2024 11:00 Provider: MARYBETH POWELL Comment on specimen: urine Test(s) ordered: CULTURE & SUSCEPTIBILITY...... completed: Jun 09, 2024 * BACTERIOLOGY FINAL REPORT => Jun 09, 2024 19:12 TECH CODE: [id number] CULTURE RESULTS: ESCHERICHIA COLI - Quantity: >100,000 [...] By: [facility] [CLIA# [id number]] [employer] [place], [place] [id number] [facility]
--- OUTSIDE RECORDS SUMMARY | 2024-07-16 07:30 | XMS_ITS | Encounter Summary ---
Author Name [facility] [place] [facility] [facility] [place] Address [address] [place] [address] Care Team Providers Care Meat Supervisor Name Role Phone JATINDER CABRERA Primary [...] PART A Sep 29, 2016 PART A [id number] [phone] JUDY WEAVER PATIENT Selected Encounter This section includes the information on record at [place] for the Encounter. Date/Time Encounter Type Encounter Description Reason Provider Source Jun 21, 2024 01:00 AM Outpatient Encounter ADMIN PAT ACTIVTIES ([employer]) SYSTEM,[facility] Encounter Template Text not used [...] 27, 2024 08:00 AM AMBULATORY - MEDICINE [facility] Jul 03, [...] of theEncounter. The data comes from all [facility]. Test Date/Time Test Type Test Details Facility [...] TYPE & SCREEN - LAB BLOOD [facility] Jul 03, 2024 12:00 AM Laboratory - Blood Bank Order TYPE & SCREEN - LAB BLOOD [facility] Jul 16, 2024 [...] 09, 2024 12:23 PM Reporting Lab: [facility] [address] Performing Lab: [facility] [address] PHOSPHORUS 3.0 mg/dL 2.3-4.3 Jul 10, 2024 07:16 AM [facility] BASIC METABOLIC PANEL+MG Specimen Type: PLASMA No comment entered. Ordering Provider: JUANCARLOS ECHOLS Report Released Date/Time: Jul 09, 2024 12:23 PM Reporting Lab: [facility] [address] Performing Lab: [facility] [address] CREATININE 0.7 mg/dL 0.7-1.2 UREA NITROGEN 27 [...] Jul 09, 2024 12:23 PM Reporting Lab: [facility] [address] Performing Lab: [facility] [address] WBC 18.8 H 4.0-11.0 RBC 5.08 4.60-6.20 [...] Jul 08, 2024 06:18 PM Reporting Lab: [facility] [address] Performing Lab: [facility] [address] WBC 15.3 H 4.0-11.0 RBC 4.91 4.60-6.20 [...] Jul 08, 2024 08:41 AM Reporting Lab: [facility] [address] Performing Lab: [facility] [address] URINE COLOR YELLOW SPECIFIC GRAVITY >1.050 H [...] Jul 07, 2024 04:49 PM Reporting Lab: [facility] [address] Performing Lab: [facility] [address] WBC 17.5 H 4.0-11.0 RBC 4.88 4.60-6.20 [...] Jul 07, 2024 04:49 PM Reporting Lab: [facility] [address] Performing Lab: [facility] [address] PHOSPHORUS 2.6 mg/dL 2.3-4.3 Jul 08, 2024 09:54 AM [facility] BASIC METABOLIC PANEL+MG Specimen Type: PLASMA Comment: Specimen received in Lab at: [id number] Ordering Provider: JUANCARLOS ECHOLS Report Released Date/Time: Jul 07, 2024 04:49 PM Reporting Lab: [facility] [address] Performing Lab: [facility] [address] CREATININE 0.9 mg/dL 0.7-1.2 UREA NITROGEN 26 [...] Jul 07, 2024 12:26 PM Reporting Lab: [facility] [address] Performing Lab: [facility] [address] C DIFF TOX B GENE PCR NEGATIVE Negative Jul 07, 2024 07:41 AM [facility] PHOSPHORUS Specimen Type: PLASMA No comment entered. Ordering Provider: JEVON ZAZUETA Report Released Date/Time: Jul 06, 2024 03:44 PM Reporting Lab: [facility] [address] Performing Lab: [facility] [address] PHOSPHORUS 3.1 mg/dL 2.3-4.3 Jul 07, 2024 07:41 AM [facility] BASIC METABOLIC PANEL+MG Specimen Type: PLASMA No comment entered. Ordering Provider: JEVON ZAZUETA Report Released Date/Time: Jul 06, 2024 03:44 PM Reporting Lab: [facility] [address] Performing Lab: [facility] [address] CREATININE 0.9 mg/dL 0.7-1.2 UREA NITROGEN 20 [...] Jul 06, 2024 03:44 PM Reporting Lab: [facility] [address] Performing Lab: [facility] [address] WBC 21.2 H 4.0-11.0 RBC 5.09 4.60-6.20 [...] Jul 05, 2024 01:22 PM Reporting Lab: [facility] [address] Performing Lab: [facility] [address] WBC 18.0 H 4.0-11.0 RBC 4.83 4.60-6.20 [...] Jul 05, 2024 01:22 PM Reporting Lab: [facility] [address] Performing Lab: [facility] [address] PHOSPHORUS 3.6 mg/dL 2.3-4.3 Jul 06, 2024 07:21 AM [facility] BASIC METABOLIC PANEL+MG Specimen Type: PLASMA No comment entered. Ordering Provider: JEVON ZAZUETA Report Released Date/Time: Jul 05, 2024 01:22 PM Reporting Lab: [facility] [address] Performing Lab: [facility] [address] CREATININE 0.7 mg/dL 0.7-1.2 UREA NITROGEN 12 [...] Jul 04, 2024 09:39 AM Reporting Lab: [facility] [address] Performing Lab: [facility] [address] MAGNESIUM 2.0 mg/dL 1.6-2.6 Jul 05, 2024 07:17 AM [facility] PHOSPHORUS Specimen Type: PLASMA No comment entered. Ordering Provider: JUANCARLOS ECHOLS S Report Released Date/Time: Jul 04, 2024 09:39 AM Reporting Lab: [facility] [address] Performing Lab: [facility] [address] PHOSPHORUS 2.0 mg/dL L 2.3-4.3 Jul 05, 2024 07:17 AM [facility] BASIC METABOLIC PANEL+MG Specimen Type: PLASMA No comment entered. Ordering Provider: JUANCARLOS ECHOLS S Report Released Date/Time: Jul 04, 2024 09:39 AM Reporting Lab: [facility] [address] Performing Lab: [facility] [address] CREATININE 0.7 mg/dL 0.7-1.2 UREA NITROGEN 12 [...] Jul 04, 2024 09:39 AM Reporting Lab: [facility] [address] Performing Lab: [facility] [address] WBC 18.3 H 4.0-11.0 RBC 4.49 L [...] Jul 03, 2024 06:31 PM Reporting Lab: [facility] [address] Performing Lab: [facility] [address] CREATININE 0.7 mg/dL 0.7-1.2 UREA NITROGEN 16 [...] Jul 03, 2024 06:31 PM Reporting Lab: [facility] [address] Performing Lab: [facility] [address] PHOSPHORUS 2.8 mg/dL 2.3-4.3 Jul 04, 2024 07:16 AM [facility] CBC Specimen Type: BLOOD No comment entered. Ordering Provider: GABINO CAMERON Report Released Date/Time: Jul 03, 2024 06:31 PM Reporting Lab: [facility] [address] Performing Lab: [facility] [address] WBC 20.6 H 4.0-11.0 RBC 4.63 4.60-6.20 [...] Jul 03, 2024 06:31 PM Reporting Lab: [facility] [address] Performing Lab: [facility] [address] WBC 20.6 H 4.0-11.0 RBC 4.63 4.60-6.20 [...] Jul 03, 2024 06:31 PM Reporting Lab: [facility] [address] Performing Lab: [facility] [address] BNP 292 pg/mL H <99 Jul 03, 2024 10:32 PM [facility] FINGERSTICK GLUCOSE Specimen Type: BLOOD Comment: Save Result Nurse Notified Ordering Provider: KATELYNN PERSON Report Released Date/Time: Jul 03, 2024 10:50 PM Reporting Lab: [facility] [address] Performing Lab: [facility] [address] FINGERSTICK GLUCOSE 126 mg/dL H 70-100 Jul 03, 2024 05:33 PM [facility] FINGERSTICK GLUCOSE Specimen Type: BLOOD Comment: Save Result Nurse Notified Ordering Provider: KATELYNN PERSON Report Released Date/Time: Jul 03, 2024 05:46 PM Reporting Lab: [facility] [address] Performing Lab: [facility] [address] FINGERSTICK GLUCOSE 141 mg/dL H 70-100 Jul 03, 2024 02:31 PM [facility] POC ABG/ELECTROLYTES Specimen Type: ARTERIAL BLOOD Comment: FIO2 = 97% Patient Temp: 36.0 C Sample Type = ARTERIAL Ordering Provider: MAZIN ARREDONDO Report Released Date/Time: Jul 03, 2024 01:48 PM Reporting Lab: [facility] [address] Performing Lab: [facility] [address] POC PH 7.387 7.35-7.45 POC PCO2 34.4 [...] Jul 03, 2024 01:48 PM Reporting Lab: [facility] [address] Performing Lab: [facility] [address] POC PH 7.280 L 7.35-7.45 POC PCO2 [...] Jun 12, 2024 04:01 PM Reporting Lab: [facility] [address] Performing Lab: [facility] [address] URINE COLOR YELLOW SPECIFIC GRAVITY 1.031 1.003-1.03 [...] Jun 12, 2024 03:59 PM Reporting Lab: [facility] [address] Performing Lab: [facility] [address] WBC 15.8 H 4.0-11.0 RBC 5.11 4.60-6.20 [...] Jun 23, 2024 06:07 PM Reporting Lab: [facility] [address] Performing Lab: [facility] [address] CREATININE 0.8 mg/dL 0.7-1.2 UREA NITROGEN 13 [...] Jun 23, 2024 06:07 PM Reporting Lab: [facility] [address] Performing Lab: [facility] [address] WBC 15.5 H 4.0-11.0 RBC 4.93 4.60-6.20 [...] Jun 22, 2024 05:51 PM Reporting Lab: [facility] [address] Performing Lab: [facility] [address] CREATININE 0.7 mg/dL 0.7-1.2 UREA NITROGEN 16 [...] Jun 22, 2024 05:51 PM Reporting Lab: [facility] [address] Performing Lab: [facility] [address] WBC 14.9 H 4.0-11.0 RBC 5.09 4.60-6.20 [...] Jun 22, 2024 05:51 PM Reporting Lab: [facility] [address] Performing Lab: [facility] [address] WBC 16.9 H 4.0-11.0 RBC 5.28 4.60-6.20 [...] Jun 22, 2024 05:51 PM Reporting Lab: [facility] [address] Performing Lab: [facility] [address] CREATININE 0.7 mg/dL 0.7-1.2 UREA NITROGEN 17 [...] Jun 21, 2024 05:45 PM Reporting Lab: [facility] [address] Performing Lab: [facility] [address] URINE COLOR YELLOW SPECIFIC GRAVITY 1.041 H [...] Jun 21, 2024 06:07 PM Reporting Lab: [facility] [address] Performing Lab: [facility] [address] POC CREATININE 1.1 mg/dL 0.6-1.3 Jun 21, 2024 05:30 PM [facility] POC ABG/LACTATE Specimen Type: VENOUS BLOOD No comment entered. Ordering Provider: DELIA MARTINEZ Report Released Date/Time: Jun 21, 2024 06:07 PM Reporting Lab: [facility] [address] Performing Lab: [facility] [address] POC PH 7.470 H 7.31-7.41 POC PCO2 [...] Jun 21, 2024 05:30 PM Reporting Lab: [facility] [address] Performing Lab: [facility] [address] .INR 1.2 H 0.8-1.1 .PT 13.9 s H 9.4-12.5 Jun 21, 2024 05:24 PM [facility] LIPASE Specimen Type: PLASMA No comment entered. Ordering Provider: DELIA MARTINEZ Report Released Date/Time: Jun 21, 2024 05:30 PM Reporting Lab: [facility] [address] Performing Lab: [facility] [address] LIPASE 32 U/L <60 Jun 21, 2024 05:24 PM [facility] EXTRA GOLD GEL TUBE Specimen Type: SERUM No comment entered. Ordering Provider: DELIA MARTINEZ Report Released Date/Time: Jun 21, 2024 05:41 PM Reporting Lab: [facility] [address] Performing Lab: [facility] [address] EXTRA GOLD GEL TUBE RECEIVED Jun 21, 2024 05:24 PM [facility] COMPREHENSIVE METABOLIC PANEL+MG Specimen Type: PLASMA No comment entered. Ordering Provider: DELIA MARTINEZ Report Released Date/Time: Jun 21, 2024 05:30 PM Reporting Lab: [facility] [address] Performing Lab: [facility] [address] CREATININE 0.9 mg/dL 0.7-1.2 UREA NITROGEN 29 [...] Jun 21, 2024 05:30 PM Reporting Lab: [facility] [address] Performing Lab: [facility] [address] WBC 21.3 H 4.0-11.0 RBC 5.48 4.60-6.20 [...] May 28, 2024 09:02 AM Reporting Lab: [facility] [address] Performing Lab: [facility] [address] .INR 1.0 0.8-1.1 .PT 11.8 s 9.4-12.5 [...] May 28, 2024 09:02 AM Reporting Lab: [facility] [address] Performing Lab: [facility] [address] HEMOGLOBIN A1C 4.9 4.0-6.0 Jun 08, 2024 10:59 AM [facility] CBC Specimen Type: BLOOD No comment entered. Ordering Provider: MARYBETH POWELL Report Released Date/Time: May 28, 2024 09:02 AM Reporting Lab: [facility] [address] Performing Lab: [facility] [address] WBC 16.1 H 4.0-11.0 RBC 5.02 4.60-6.20 [...] May 28, 2024 09:02 AM Reporting Lab: [facility] [address] Performing Lab: [facility] [address] CREATININE 0.9 mg/dL 0.7-1.2 UREA NITROGEN 15 [...] Source Jun 21, 2024 11:54 PM 7 [facility] Jun 21, 2024 11:29 PM 7 [facility] Jun 21, 2024 11:02 PM 97.9 75 130/75 17 95 7 [facility] Jun 21, 2024 04:51 PM 98.2 100 162/97 16 97 10 [facility] Social History: Smoking Status [...] comes from all [facility]. Date Advance Directives Provider Source Mar 23, [...] 2 VIEWS PA AND LAT: FLACA WEAVER [id number] -1950 M Exm Date: JUL 08, 2024@10:09 Req Phys: KATELYNN PERSON Pat Loc: 2KG/07-08-2024@11:49 Img Loc: MAIN X-RAY Service: [place] [address] (Case [id number] COMPLETE) CHEST 2 VIEWS PA AND LAT (RAD Detailed) CPT:29969 Reason for Study: Uptrending WBC, POD 5 Clinical History: [place] IS NOT under investigation for COVID-19 [...] 2024 Date Verified: JUL 08, 2024 Digital Publishing Specialist E-Sig: Report: CHEST 2 VIEWS PA [...] cardiopulmonary disease. READING PHYSICIAN: Sarbjit Vaughn M.D. -[phone] 07/08/2024 12:46 EST [facility] National Teleradiology Program [phone] (For Medical Practitioner Use Only) Attention Patients / Veterans: If you have questions or concerns about these test results, please contact your ordering provider or primary care team. Primary Interpreting Staff: RADIOLOGY,OUTSIDE SERVICE, Staff Physician / RADIOLOGY,OUTSIDE SERVICE [facility] Jul 08, 2024 10:[address] (AP) ABDOMEN/PELVIS W CONTRAST: FLACA WEAVER [id number] -1950 M Exm Date: JUL 08, 2024@10:00 Req Phys: KATELYNN PERSON [facility] Loc: 2KG/07-08-2024@12:07 [facility] Loc: CT IMAGING Service: [place] [address] (Case 22 COMPLETE) CT (AP) ABDOMEN/PELVIS W CONTRAST(CT Detailed) CPT:06166 Contrast Media : Non-ionic Iodinated Reason for [...] PLASMA .CREAT EGFR(CKD-E >90 Ref: >=60 Allergies: ([place] only) TERAZOSIN (Mar 13, 2015) Report Status: Verified Date Reported: JUL 08, 2024 Date Verified: JUL 08, 2024 Digital Publishing Specialist E-Sig: Report: CT (AP) ABDOMEN/PELVIS W [...] as noted above READING PHYSICIAN: Celestino Blanc -[phone] 07/08/2024 13:04 [facility] National Teleradiology Program [phone] (For Medical Practitioner Use Only) Attention Patients / Veterans: If you have questions or concerns about these test results, please contact your ordering provider or primary care team. Primary Interpreting Staff: RADIOLOGY,OUTSIDE SERVICE, Staff Physician / RADIOLOGY,OUTSIDE SERVICE [facility] Jun 22, 2024 11:49 AM ABSCESS DRAIN PLACEMENT PERITONEAL (P): FLACA WEAVER [id number] -1950 M Exm Date: JUN 22, 2024@11:49 Req Phys: ANGELA HOLDEN Loc: [facility]06-22-2024@17:14 Img Loc: INTERVENTIONAL RADIOLOGY Service: [place] [address] (Case [id number] COMPLETE) IR PERITONEAL/RETROPERITONEAL PER(ANI Detailed) CPT:88292 Reason for Study: diverticulitis with abscess (Case [id number] COMPLETE) IR MOD SEDATION 10-22 MIN (ANI Detailed) CPT:47849 Clinical History: [place] IS NOT under investigation for COVID-19 or is COVID-19 negative 73 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 please place abscess drain. Contact number for responsible provider who can be reached for any questions or notifications of critical findings: [phone] n/a LAST CREATININE 0.9 (06/21/24) Report Status: Verified Date Reported: JUN 22, 2024 Date Verified: JUN 22, 2024 Digital Publishing Specialist E-Sig:/ES/LISA PENDLETON MD Report: PROCEDURES: Placement [...] obtained. A pre-procedural Time-Out was performed per [facility] policy. The patient was placed in the supine position on the CT table. Preprocedural scan performed. The suprapubic region/lower abdominal wall was sterilely prepped and draped in the usual fashion.1% lidocaine without epinephrine was used for local anesthesia. Using real-time CT fluoroscopy, a 5 Palestinian Servoy[employer] catheter was advanced into the collection in the left pelvis. A wire was coiled in the collection. The tract into the collection was dilated to accommodate the 12 Palestinian locking pigtail drainage catheter. There was return [...] Interpreting Staff: LISA PENDLETON MD, RADIOLOGIST (Digital Publishing Specialist) /JRT LISA PENDLETON [facility] Jun 22, 2024 11:[address] NEEDLE PLACEMENT (P): FLACA WEAVER [id number] -1950 M Exm Date: JUN 22, 2024@11:48 Req Phys: ANGELA HOLDEN [facility] Loc: [facility]/06-22-2024@17:14 Img Loc: CT IMAGING Service: [place] [address] (Case [id number] COMPLETE) CT SCAN FOR NEEDLE PLACEMENT (CT Detailed) CPT:73153 Reason for Study: l pelvic abscess drain Clinical History: Report Status: Verified Date Reported: JUN 22, 2024 Date Verified: JUN 22, 2024 Digital Publishing Specialist E-Sig:/ES/LISA PENDLETON MD Report: PROCEDURES: Placement [...] obtained. A pre-procedural Time-Out was performed per [facility] policy. The patient was placed in the supine position on the CT table. Preprocedural scan performed. The suprapubic region/lower abdominal wall was sterilely prepped and draped in the usual fashion.1% lidocaine without epinephrine was used for local anesthesia. Using real-time CT fluoroscopy, a 5 [employer] catheter was advanced into the collection in the left pelvis. A wire was coiled in the collection. The tract into the collection was dilated to accommodate the 12 Palestinian locking pigtail drainage catheter. There was return [...] Interpreting Staff: LISA PENDLETON MD, RADIOLOGIST (Digital Publishing Specialist) /JRT LISA PENDLETON [facility] Jun 21, 2024 06:[address] (AP) ABDOMEN/PELVIS (P): FLACA WEAVER [id number] -1950 M Exm Date: JUN 21, 2024@18:09 Req Phys: DELIA MARTINEZ Loc: [facility] EMERGENCY DEPT WALK-IN (Re Img Loc: CT IMAGING Service: [place] [address] (Case [id number] COMPLETE) CT (AP) ABDOMEN/PELVIS W CONTRAST(CT Detailed) CPT:39927 Contrast Media : Non-ionic Iodinated Reason for [...] PLASMA .CREAT EGFR(CKD-E >90 Ref: >=60 Allergies: ([place] only) TERAZOSIN (Mar 13, 2015) Defer to [...] 2024 Date Verified: JUN 21, 2024 Digital Publishing Specialist E-Sig:/ES/CARLOS A CUNNINGHAM DO Report: EXAMINATION: CT [...] Staff: CARLOS A CUNNINGHAM DO, RADIOLOGIST (Digital Publishing Specialist) /CARLOS A ROWELL [facility] May 25, 2024 09:00 AM IR FISTULOGRAM OR SINOGRAM : FLACA WEAVER [id number] -1950 M Exm Date: MAY 25, 2024@09:00 Req Phys: AMINTA PRUITT Loc: [facility] XRAY INTERVENTIONAL RADIO Img Loc: INTERVENTIONAL RADIOLOGY Service: [place] [address] (Case [id number] COMPLETE) IR FISTULOGRAM OR SINOGRAM (ANI Detailed) CPT:76115 Contrast Media : unspecified contrast media Reason for Study: s/p drain placement for diverticular abscess- assess for drain Clinical History: [place] IS NOT under investigation for COVID-19 [...] 25, 2024 Date Verified: MAY 25, 2024 Digital Publishing Specialist E-Sig:/ES/DAVID BURNS MD Report: PROCEDURES 05/25/2024 [...] Primary Interpreting Staff: DAVID BURNS MD, RADIOLOGIST (Digital Publishing Specialist) /CSS DAVID BURNS [facility] May 25, 2024 08:[address] (AP) ABDOMEN/PELVIS (P): FLACA WEAVER [id number] -1950 M Exm Date: MAY 25, 2024@08:23 Req Phys: DAVID BURNS Pat Loc: [facility] XRAY INTERVENTIONAL RADIO Img Loc: CT IMAGING Service: [place] [address] (Case [id number] COMPLETE) CT (AP) ABDOMEN/PELVIS W/O CONTRA(CT Detailed) CPT:85883 Reason for Study: assess abscess and possible [...] PLASMA .CREAT EGFR(CKD-E >90 Ref: >=60 Allergies: ([place] only) TERAZOSIN (Mar 13, 2015) Report Status: Verified Date Reported: MAY 25, 2024 Date Verified: MAY 25, 2024 Digital Publishing Specialist E-Sig:/ES/JESSENIA GOODMAN MD Report: EXAM: CT [...] pelvis 04/23/2024.; CT abdomen pelvis 05/05/2020 FINDINGS: GAME AGENT: Pigtail catheter projecting over the left hemipelvis [...] Primary Interpreting Staff: JESSENIA GOODMAN MD, RADIOLOGIST (Digital Publishing Specialist) Primary Interpreting Resident: YOHANNES MELO DO, SECOND WORKER /JESSENIA LOUIE [facility] Pathology Reports: +/- 30 days [...] COMPLETED $APHDR Reporting Lab: [facility] [CLIA# [id number]] [place] [address] - - - - - - - [...] - - - PATHOLOGY REPORT Accession No. [id number] - - - - - - - [...] - PATHOLOGY REPORT Accession No. [id number] - - - - - - - [...] Second circumferential surgical margin, en face; E-F: Metal Coater diverticula; G: Metal Coater section of mesentery; H: Random sales representative printing paper section of additional adipose tissue fragment. SS. [...] One colonic tissue ring, bisected transversely. SS. ([place] [place]: Microscopic examination performed. DIAGNOSIS: 1. Colon, sigmoid, sigmoidectomy-- - Diverticulosis with perforation and focal abscess formation 2. Colon, anastomotic rings, excision-- - Viable colonic mucosa without diagnostic abnormality /es/ EDUARDO PALOMARES MD STAFF PATHOLOGIST Signed Jul 06, 2024@10:40 Performing Laboratory: Surgical Pathology Report Performed By: [facility] [CLIA# [id number]] [place] [address] $FTR - - - - - - - - - - - - - - - - - - - - - - - - - - - - - - - - - - - - - - - - (End of report) EDUARDO PALOMARES MD [facility] [place] Date Jul 06, 2024 - - - - - - - - - - - - - - - - - - - - - - - - - - - - - - - - - - - - - - - - FLACA WEAVER STANDARD FORM 515 ID:[id number] SEX:M :1950 AGE: 73 LOC:34760 ADM:Jun DX:DIVERTICULITIS PCP: Jatinder Cabrera /alexi/ EDUARDO PALOMARES MD STAFF PATHOLOGIST Signed: 07/06/2024 10:40 EDUARDO PALOMARES [facility] Jun 22, 2024 01:15 PM LR MICROBIOLOGY RE PORT: Reporting Lab: [facility] [CLIA# [id number]] [place] [address] Accession [UID]: [id number] [[id number]] Received: Jun 22, 2024@13:38 Collection sample: FLUID Collection date: Jun 22, 2024 13:15 Provider: ANGELA HOLDEN Comment on specimen: LLQ ABSCESS, RECEIVED IN ANAEROBIC TRANSPORT VIAL Test(s) ordered: GRAM STAIN.................... completed: Jun 22, 2024 15:03 CULTURE & SUSCEPTIBILITY...... completed: Jun 25, 2024 * BACTERIOLOGY FINAL REPORT => Jun 25, 2024 10:56 TECH CODE: [id number] GRAM STAIN: DIRECT SMEAR of specimen before [...] Bacteriology Report Performed By: [facility] [CLIA# [id number]] [place] [address] [facility] Jun 22, 2024 01:15 PM LR MICROBIOLOGY RE PORT: Reporting Lab: [facility] [CLIA# [id number]] [place] [address] Accession [UID]: [id number] [[id number]] Received: Jun 22, 2024@13:38 Collection sample: FLUID Collection date: Jun 22, 2024 13:15 Provider: ANGELA HOLDEN Comment on specimen: LLQ ABSCESS, RECEIVED IN ANAEROBIC TRANSPORT VIAL Test(s) ordered: ANAEROBIC CULTURE............. completed: Jun 28, 2024 * BACTERIOLOGY FINAL REPORT => Jun 28, 2024 10:08 TECH CODE: [id number] CULTURE RESULTS: HEAVY GROWTH MIXED ANAEROBES Comment: [...] Bacteriology Report Performed By: [facility] [CLIA# [id number]] [place] [address] [facility] Jun 21, 2024 06:12 PM LR MICROBIOLOGY RE PORT: Reporting Lab: [facility] [CLIA# [id number]] [place] [address] Accession [UID]: [id number] [[id number]] Received: Jun 21, 2024@18:12 Collection sample: BLOOD [...] Bacteriology Report Performed By: [facility] [CLIA# [id number]] [place] [address] [facility] Jun 21, 2024 06:11 PM LR MICROBIOLOGY RE PORT: Reporting Lab: [facility] [CLIA# [id number]] [place] [address] Accession [UID]: [id number] [[id number]] Received: Jun 21, 2024@18:11 Collection sample: BLOOD [...] Bacteriology Report Performed By: [facility] [CLIA# [id number]] [place] [address] [facility] Jun 08, 2024 11:00 AM LR MICROBIOLOGY RE PORT: Reporting Lab: [facility] [CLIA# [id number]] [place] [address] Accession [UID]: [id number] [[id number]] Received: Jun 08, 2024@11:00 Collection sample: URINE Collection date: Jun 08, 2024 11:00 Provider: MARYBETH POWELL Comment on specimen: urine Test(s) ordered: CULTURE & SUSCEPTIBILITY...... completed: Jun 09, 2024 * BACTERIOLOGY FINAL REPORT => Jun 09, 2024 19:12 TECH CODE: [id number] CULTURE RESULTS: ESCHERICHIA COLI - Quantity: >100,000 [...] Bacteriology Report Performed By: [facility] [CLIA# [id number]] [place] [address] [facility] Encounter Notes: All associated encounter notes This section contains the clinical notes associated to the Encounter. Date/Time Encounter Note(s) Provider Source Jun 21, 2024 01:00 AM CRITICAL CARE UNIT NOTE: [facility] FLOWSHEET STANDARD TITLE: CRITICAL CARE UNIT NOTE DATE OF NOTE: JUN 21, 2024@01:00 ENTRY DATE: JUN 22, 2024@01:31:29 AUTHOR: DUDLEY WINKLERUnderstoryCHRISTOPHER EXP COSIGNER: URGENCY: STATUS: COMPLETED This is a place aranda only. Please see [facility] to view document. /es/ [employer] SYSTEM ICU DOCUMENT IMPORT Signed: 06/22/2024 01:31 [employer] [facility] Jun 21, 2024 01:00 AM CRITICAL CARE UNIT NOTE: LOCAL TITLE: [facility] RESPIRATORY THERAPY FLOWSHEET STANDARD TITLE: CRITICAL CARE UNIT NOTE DATE OF NOTE: JUN 21, 2024@01:00 ENTRY DATE: JUN 22, 2024@15:07:34 AUTHOR: PETERSONGoojetMaeve EXP COSIGNER: URGENCY: STATUS: COMPLETED This is a place aranda only. Please see [facility] to view document. /es/ [employer] SYSTEM ICU DOCUMENT IMPORT Signed: 06/22/2024 15:07 SYSTEM,[employer] [facility]
--- OUTSIDE RECORDS SUMMARY | 2024-07-16 07:31 | XMS_ITS ---
[place] DAILY HOSPITALIZATION DATA [facility] Encounter Summary Created on: July 16, 2024 MEG FLACADARCI LOBO : 1950 Sex: Male Author Name [facility] [facility] [place] Address [address] [place] [address] Care Team Providers Care Director Credit Risk Name Role Phone JATINDER CABRERA Primary Care [...] PART A Sep 29, 2016 PART A [id number] [phone] JUDY WEAVER PATIENT Selected Encounter This section includes the information on record at [place] for the Encounter. Date/Time Encounter Type Encounter Description Reason Pro vider Source Jun 22, 2024 01:40 PM Inpatient Visit DAILY HOSPITALIZATION DATA [facility] QUINTERO Encounter Template Text not used by [place] Plan of Treatment: Future Appointments (+ 6 months) and Future Tests (+/- 45 days) The Plan of Treatment section includes future care activities for the patient from all [place] treatmentfacilities. This section includes future appointments and [...] 27, 2024 07:00 AM [facility] Jun 27, 2024 07:30 AM [facility] Jun 27, 2024 08:00 AM AMBULATORY - MEDICINE [facility] Jul 03, 2024 05:55 AM AMBULATORY - NONE [facility] Jul 13, 2024 08:15 AM AMBULATORY - NONE [facility] Active, Pending, and Scheduled Orders This section includes a listing of several types of active, pending, and scheduled orders, including clinic medications orders, diagnostic test orders, procedure orders and consult orders; where the start date of the order is 45 days before the date of the Encounter or 45 days after the date of theEncounter. The data comes from all [facility] facilities. Test Date/Time Test Type Test Details [...] Order TYPE & SCREEN - LAB BLOOD [facility] Jul 03, 2024 12:00 AM Laboratory - Blood Bank Order TYPE & SCREEN - LAB BLOOD [facility] Jul 16, 2024 12:00 AM Laboratory - Chemi stry Order CBC BLOOD SP ONCE [facility] Jul 17, 2024 12:00 AM Laboratory - Chemi stry Order BASIC METABOLIC PANEL+MG PLASMA SP ONCE [facility] Lab Results: +/- 30 days of the encounter This section includes the Chemistry and Hematology Lab Results on record with [place] for the patient. Radiology Reports and Pathology [...] Reporting Lab: [facility] [address] Performing Lab: [facility] [address] PHOSPHORUS 3.0 mg/dL 2.3-4.3 Jul 10, 2024 07:16 AM [facility] BASIC METABOLIC PANEL+MG Specimen Type: PLASMA No comment entered. Ordering Provider: JUANCARLOS ECHOLS Report Released Date/Time: Jul 09, 2024 12:23 PM Reporting Lab: [facility] [address] Performing Lab: [facility] [address] CREATININE 0.7 mg/dL 0.7-1.2 UREA NITROGEN 27 [...] Jul 09, 2024 12:23 PM Reporting Lab: [facility] [address] Performing Lab: [facility] [address] WBC 18.8 H 4.0-11.0 RBC 5.08 4.60-6.20 [...] Jul 08, 2024 06:18 PM Reporting Lab: [facility] [address] Performing Lab: [facility] [address] WBC 15.3 H 4.0-11.0 RBC 4.91 4.60-6.20 [...] Jul 08, 2024 08:41 AM Reporting Lab: [facility] [address] Performing Lab: [facility] [address] URINE COLOR YELLOW SPECIFIC GRAVITY >1.050 H [...] Jul 07, 2024 04:49 PM Reporting Lab: [facility] [address] Performing Lab: [facility] [address] WBC 17.5 H 4.0-11.0 RBC 4.88 4.60-6.20 [...] Jul 07, 2024 04:49 PM Reporting Lab: [facility] [address] Performing Lab: [facility] [address] PHOSPHORUS 2.6 mg/dL 2.3-4.3 Jul 08, 2024 09:54 AM [facility] BASIC METABOLIC PANEL+MG Specimen Type: PLASMA Comment: Specimen received in Lab at: 0952 Ordering Provider: JUANCARLOS ECHOLS Report Released Date/Time: Jul 07, 2024 04:49 PM Reporting Lab: [facility] [address] Performing Lab: [facility] [address] CREATININE 0.9 mg/dL 0.7-1.2 UREA NITROGEN 26 [...] Jul 07, 2024 12:26 PM Reporting Lab: [facility] [address] Performing Lab: [facility] [address] C DIFF TOX B GENE PCR NEGATIVE Negative Jul 07, 2024 07:41 AM [facility] PHOSPHORUS Specimen Type: PLASMA No comment entered. Ordering Provider: JEVON ZAZUETA Report Released Date/Time: Jul 06, 2024 03:44 PM Reporting Lab: [facility] [address] Performing Lab: [facility] [address] PHOSPHORUS 3.1 mg/dL 2.3-4.3 Jul 07, 2024 07:41 AM [facility] BASIC METABOLIC PANEL+MG Specimen Type: PLASMA No comment entered. Ordering Provider: JEVON ZAZUETA Report Released Date/Time: Jul 06, 2024 03:44 PM Reporting Lab: [facility] [address] Performing Lab: [facility] [address] CREATININE 0.9 mg/dL 0.7-1.2 UREA NITROGEN 20 [...] Jul 06, 2024 03:44 PM Reporting Lab: [facility] [address] Performing Lab: [facility] [address] WBC 21.2 H 4.0-11.0 RBC 5.09 4.60-6.20 [...] Jul 05, 2024 01:22 PM Reporting Lab: [facility] [address] Performing Lab: [facility] [address] WBC 18.0 H 4.0-11.0 RBC 4.83 4.60-6.20 [...] Jul 05, 2024 01:22 PM Reporting Lab: [facility] [address] Performing Lab: [facility] [address] PHOSPHORUS 3.6 mg/dL 2.3-4.3 Jul 06, 2024 07:21 AM [facility] BASIC METABOLIC PANEL+MG Specimen Type: PLASMA No comment entered. Ordering Provider: JEVON ZAZUETA Report Released Date/Time: Jul 05, 2024 01:22 PM Reporting Lab: [facility] [address] Performing Lab: [facility] [address] CREATININE 0.7 mg/dL 0.7-1.2 UREA NITROGEN 12 [...] Jul 04, 2024 09:39 AM Reporting Lab: [facility] [address] Performing Lab: [facility] [address] MAGNESIUM 2.0 mg/dL 1.6-2.6 Jul 05, 2024 07:17 AM [facility] PHOSPHORUS Specimen Type: PLASMA No comment entered. Ordering Provider: JUANCARLOS ECHOLS S Report Released Date/Time: Jul 04, 2024 09:39 AM Reporting Lab: [facility] [address] Performing Lab: [facility] [address] PHOSPHORUS 2.0 mg/dL L 2.3-4.3 Jul 05, 2024 07:17 AM [facility] BASIC METABOLIC PANEL+MG Specimen Type: PLASMA No comment entered. Ordering Provider: JUANCARLOS ECHOLS S Report Released Date/Time: Jul 04, 2024 09:39 AM Reporting Lab: [facility] [address] Performing Lab: [facility] [address] CREATININE 0.7 mg/dL 0.7-1.2 UREA NITROGEN 12 [...] Jul 04, 2024 09:39 AM Reporting Lab: [facility] [address] Performing Lab: [facility] [address] WBC 18.3 H 4.0-11.0 RBC 4.49 L [...] Jul 03, 2024 06:31 PM Reporting Lab: [facility] [address] Performing Lab: [facility] [address] CREATININE 0.7 mg/dL 0.7-1.2 UREA NITROGEN 16 mg/dL 8-26 GLUCOSE 129 mg/dL H 70-100 SODIUM 137 mmol/L 136-145 POTASSIUM 3.7 mmol/L 3.5-5.1 CHLORIDE 107 mmol/L 98-107 CO2 22 mmol/L 22-29 CALCIUM 9.0 mg/dL 8.4-10.2 MAGNESIUM 1.9 mg/dL 1.6-2.6 ANION GAP 8 mmol/L 5-15 .CREAT EGFR(CKD-EPI) >90 >60 Jul 04, 2024 07:17 AM [facility] PHOSPHORUS Specimen Type: PLASMA No comment entered. Ordering Provider: GABINO CAMERON Report Released Date/Time: Jul 03, 2024 06:31 PM Reporting Lab: [facility] [address] Performing Lab: [facility] [address] PHOSPHORUS 2.8 mg/dL 2.3-4.3 Jul 04, 2024 07:16 AM [facility] CBC Specimen Type: BLOOD No comment entered. Ordering Provider: GABINO CAMERON Report Released Date/Time: Jul 03, 2024 06:31 PM Reporting Lab: [facility] [address] Performing Lab: [facility] [address] WBC 20.6 H 4.0-11.0 RBC 4.63 4.60-6.20 [...] Jul 03, 2024 06:31 PM Reporting Lab: [facility] [address] Performing Lab: [facility] [address] WBC 20.6 H 4.0-11.0 RBC 4.63 4.60-6.20 [...] Jul 03, 2024 06:31 PM Reporting Lab: [facility] [address] Performing Lab: [facility] [address] BNP 292 pg/mL H <99 Jul 03, 2024 10:32 PM [facility] FINGERSTICK GLUCOSE Specimen Type: BLOOD Comment: Save Result Nurse Notified Ordering Provider: KATELYNN PERSON Report Released Date/Time: Jul 03, 2024 10:50 PM Reporting Lab: [facility] [address] Performing Lab: [facility] [address] FINGERSTICK GLUCOSE 126 mg/dL H 70-100 Jul 03, 2024 05:33 PM [facility] FINGERSTICK GLUCOSE Specimen Type: BLOOD Comment: Save Result Nurse Notified Ordering Provider: KATELYNN PERSON Report Released Date/Time: Jul 03, 2024 05:46 PM Reporting Lab: [facility] [address] Performing Lab: [facility] [address] FINGERSTICK GLUCOSE 141 mg/dL H 70-100 Jul 03, 2024 02:31 PM [facility] POC ABG/ELECTROLYTES Specimen Type: ARTERIAL BLOOD Comment: FIO2 = 97% Patient Temp: 36.0 C Sample Type = ARTERIAL Ordering Provider: MAZIN ARREDONDO Report Released Date/Time: Jul 03, 2024 01:48 PM Reporting Lab: [facility] [address] Performing Lab: [facility] [address] POC PH 7.387 7.35-7.45 POC PCO2 34.4 [...] Jul 03, 2024 01:48 PM Reporting Lab: [facility] [address] Performing Lab: [facility] [address] POC PH 7.280 L 7.35-7.45 POC PCO2 [...] Jun 12, 2024 04:01 PM Reporting Lab: [facility] [address] Performing Lab: [facility] [address] URINE COLOR YELLOW SPECIFIC GRAVITY 1.031 1.003-1.03 [...] Jun 12, 2024 03:59 PM Reporting Lab: [facility] [address] Performing Lab: [facility] [address] WBC 15.8 H 4.0-11.0 RBC 5.11 4.60-6.20 [...] Jun 23, 2024 06:07 PM Reporting Lab: [facility] [address] Performing Lab: [facility] [address] CREATININE 0.8 mg/dL 0.7-1.2 UREA NITROGEN 13 [...] Jun 23, 2024 06:07 PM Reporting Lab: [facility] [address] Performing Lab: [facility] [address] WBC 15.5 H 4.0-11.0 RBC 4.93 4.60-6.20 [...] Jun 22, 2024 05:51 PM Reporting Lab: [facility] [address] Performing Lab: [facility] [address] CREATININE 0.7 mg/dL 0.7-1.2 UREA NITROGEN 16 [...] Jun 22, 2024 05:51 PM Reporting Lab: [facility] [address] Performing Lab: [facility] [address] WBC 14.9 H 4.0-11.0 RBC 5.09 4.60-6.20 [...] Jun 22, 2024 05:51 PM Reporting Lab: [facility] [address] Performing Lab: [facility] [address] WBC 16.9 H 4.0-11.0 RBC 5.28 4.60-6.20 [...] Jun 22, 2024 05:51 PM Reporting Lab: [facility] [address] Performing Lab: [facility] [address] CREATININE 0.7 mg/dL 0.7-1.2 UREA NITROGEN 17 [...] Jun 21, 2024 05:45 PM Reporting Lab: [facility] [address] Performing Lab: [facility] [address] URINE COLOR YELLOW SPECIFIC GRAVITY 1.041 H [...] Jun 21, 2024 06:07 PM Reporting Lab: [facility] [address] Performing Lab: [facility] [address] POC CREATININE 1.1 mg/dL 0.6-1.3 Jun 21, 2024 05:30 PM [facility] POC ABG/LACTATE Specimen Type: VENOUS BLOOD No comment entered. Ordering Provider: DELIA MARTINEZ Report Released Date/Time: Jun 21, 2024 06:07 PM Reporting Lab: [facility] [address] Performing Lab: [facility] [address] POC PH 7.470 H 7.31-7.41 POC PCO2 [...] Jun 21, 2024 05:30 PM Reporting Lab: [facility] [address] Performing Lab: [facility] [address] .INR 1.2 H 0.8-1.1 .PT 13.9 s H 9.4-12.5 Jun 21, 2024 05:24 PM [facility] LIPASE Specimen Type: PLASMA No comment entered. Ordering Provider: DELIA MARTINEZ Report Released Date/Time: Jun 21, 2024 05:30 PM Reporting Lab: [facility] [address] Performing Lab: [facility] [address] LIPASE 32 U/L <60 Jun 21, 2024 05:24 PM [facility] EXTRA GOLD GEL TUBE Specimen Type: SERUM No comment entered. Ordering Provider: DELIA MARTINEZ Report Released Date/Time: Jun 21, 2024 05:41 PM Reporting Lab: [facility] [address] Performing Lab: [facility] [address] EXTRA GOLD GEL TUBE RECEIVED Jun 21, 2024 05:24 PM [facility] COMPREHENSIVE METABOLIC PANEL+MG Specimen Type: PLASMA No comment entered. Ordering Provider: DELIA MARTINEZ Report Released Date/Time: Jun 21, 2024 05:30 PM Reporting Lab: [facility] [address] Performing Lab: [facility] [address] CREATININE 0.9 mg/dL 0.7-1.2 UREA NITROGEN 29 [...] Jun 21, 2024 05:30 PM Reporting Lab: [facility] [address] Performing Lab: [facility] [address] WBC 21.3 H 4.0-11.0 RBC 5.48 4.60-6.20 [...] MORPHOLOGY PRESENT Jun 08, 2024 10:59 AM [facility] PROTHROMBIN TIME/INR Specimen Type: PLASMA No comment entered. Ordering Provider: MARYBETH POWELL Report Released Date/Time: May 28, 2024 09:02 AM Reporting Lab: [facility] [address] Performing Lab: [facility] [address] .INR 1.0 0.8-1.1 .PT 11.8 s 9.4-12.5 Jun 08, 2024 10:59 AM [facility] HEMOGLOBIN A1C Specimen Type: BLOOD Comment: [...] May 28, 2024 09:02 AM Reporting Lab: [facility] [address] Performing Lab: [facility] [address] HEMOGLOBIN A1C 4.9 4.0-6.0 Jun 08, 2024 10:59 AM [facility] CBC Specimen Type: BLOOD No comment entered. Ordering Provider: MARYBETH POWELL Report Released Date/Time: May 28, 2024 09:02 AM Reporting Lab: [facility] [address] Performing Lab: [facility] [address] WBC 16.1 H 4.0-11.0 RBC 5.02 4.60-6.20 HGB 16.0 g/dL 13.5-17.9 HCT 47.1 41.0-54.0 MCV 93.8 fL 80.0-100.0 MCH 31.9 pg 27.0-33.0 MCHC 34.0 g/dL 32.0-37.5 PLT 228 150-400 MPV 10.3 fL 9.1-13.0 RDW 14.6 H 11.5-14.5 Jun 08, 2024 10:59 AM [facility] BASIC METABOLIC PANEL+MG Specimen Type: PLASMA No comment entered. Ordering Provider: MARYBETH POWELL Report Released Date/Time: May 28, 2024 09:02 AM Reporting Lab: [facility] [address] Performing Lab: [facility] [address] CREATININE 0.9 mg/dL 0.7-1.2 UREA NITROGEN 15 [...] 2024 01:40 PM 86 116/59 18 0 [facility] Jun 22, 2024 04:22 AM 7 [facility] Jun 22, 2024 12:22 AM 5 [facility] Social History: Smoking [...] Smoking Status/Tobacco Use Comment F tiera May 15, 2024 08:30 AM VA-TOBACCO QUIT 15 YRS OR MORE [facility] May 06, 2023 11:30 AM VA-TOBACCO FORMER USER [facility] May 06, 2023 11:30 AM [place]-TOBACCO QUIT 15 YRS OR MORE [facility] [...] comes from all [place] treatment facilities. Date/Time Radiology Report Provider Source Jul 08, 2024 10:09 AM CHEST 2 VIEWS PA AND LAT: FLACA WEAVER [id number] -1950 M Exm Date: JUL 08, 2024@10:09 Req Phys: KATELYNN PERSON Pat Loc: 07-08-2024@11:49 Img Loc: MAIN X-RAY Service: [place] [address] (Case [id number] COMPLETE) CHEST 2 VIEWS PA AND LAT (RAD Detailed) CPT:81571 Reason for Study: Uptrending WBC, POD 5 Clinical History: [place] IS NOT under investigation for COVID-19 or is COVID-19 negative POD 5, work up for uptrending wbc Responsible provider name and phone number to notify for critical findings if other than user placing the order and pager listed below: User placing orders pager: Katelynn Person LAST CREATININE 0.9 (07/07/24) Report Status: Verified Date Reported: JUL 08, 2024 Date Verified: JUL 08, 2024 Survey Research Teacher E-Sig: Report: CHEST 2 VIEWS PA AND LAT HISTORY: Uptrending WBC, POD 5 COMPARISON: CT chest 11/12/2022 TECHNIQUE: Frontal and lateral views of the chest, submitted to the [place] National Teleradiology Program (NTP) for interpretation. FINDINGS: Lungs: Clear. No focal consolidation. No pulmonary edema. Pleura: No pleural effusion or pneumothorax. Mediastinum: Normal size and contour. Bones: Unremarkable. Impression: No acute cardiopulmonary disease. READING PHYSICIAN: Sarbjit Vaughn M.D. -[id number] 07/08/2024 12:46 [facility] National Teleradiology Program [phone] (For Medical Practitioner Use Only) Attention Patients / Veterans: If you have questions or concerns about these test results, please contact your ordering provider or primary care team. Primary Interpreting Staff: RADIOLOGY,OUTSIDE SERVICE, Staff Physician / RADIOLOGY,OUTSIDE SERVICE [facility] Jul 08, 2024 10:[address] (AP) ABDOMEN/PELVIS W CONTRAST: FLACA WEAVER [id number] -1950 M Exm Date: JUL 08, 2024@10:00 Req Phys: KATELYNN PERSON Loc: G07-08-2024@12:07 Img Loc: CT IMAGING Service: [place] [address] (Case 22 COMPLETE) CT (AP) ABDOMEN/PELVIS W CONTRAST(CT Detailed) CPT:62772 Contrast Media : Non-ionic Iodinated Reason for [...] PLASMA .CREAT EGFR(CKD-E >90 Ref: >=60 Allergies: (Shubert only) TERAZOSIN (Mar 13, 2015) Report Status: Verified Date Reported: JUL 08, 2024 Date Verified: JUL 08, 2024 Survey Research Teacher E-Sig: Report: CT (AP) ABDOMEN/PELVIS W CONTRAST HISTORY: POD 5, Uptrending WBC - Concern for Abscess/other infection COMPARISON: June 21, 2024 TECHNIQUE: CT abdomen and pelvis was performed after intravenous contrast. Axial, sagittal and coronal reformatted images. The study was performed at the local [place] facility and images were sent to the [place] National Teleradiology Program (NTP) for interpretation. Number [...] as noted above READING PHYSICIAN: Celestino Blanc -[phone] 07/08/2024 13:04 [facility] National Teleradiology Program [phone] (For Medical Practitioner Use Only) Attention Patients / Veterans: If you have questions or concerns about these test results, please contact your ordering provider or primary care team. Primary Interpreting Staff: RADIOLOGY,OUTSIDE SERVICE, Staff Physician / RADIOLOGY,OUTSIDE SERVICE [facility] Jun 22, 2024 11:49 AM ABSCESS DRAIN PLACEMENT PERITONEAL (P): FLACA WEAVER [id number] -1950 M Exm Date: JUN 22, 2024@11:49 Req Phys: ANGELA HOLDEN Loc: 06-22-2024@17:14 Img Loc: INTERVENTIONAL RADIOLOGY Service: [place] [address] (Case [id number] COMPLETE) IR PERITONEAL/RETROPERITONEAL PER(ANI Detailed) CPT:79615 Reason for Study: diverticulitis with abscess (Case [id number] COMPLETE) IR MOD SEDATION 10-22 MIN (ANI Detailed) CPT:32135 Clinical History: [place] IS NOT under investigation for COVID-19 or is COVID-19 negative 73 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 please place abscess drain. Contact number for responsible provider who can be reached for any questions or notifications of critical findings: [phone] n/a LAST CREATININE 0.9 (06/21/24) Report Status: Verified Date Reported: JUN 22, 2024 Date Verified: JUN 22, 2024 Survey Research Teacher E-Sig:/ES/LISA PENDLETON MD Report: PROCEDURES: Placement of [...] obtained. A pre-procedural Time-Out was performed per [facility] policy. The patient was placed in the supine position on the CT table. Preprocedural scan performed. The suprapubic region/lower abdominal wall was sterilely prepped and draped in the usual fashion.1% lidocaine without epinephrine was used for local anesthesia. Using real-time CT fluoroscopy, a 5 Austrian Mango Gamesesis catheter was advanced into the collection in the left pelvis. A wire was coiled in the collection. The tract into the collection was dilated to accommodate the 12 Austrian locking pigtail drainage catheter. There was return [...] Primary Interpreting Staff: LISA PENDLETON MD, RADIOLOGIST (Survey Research Teacher) /JRLISA [facility] Jun 22, 2024 11:[address] NEEDLE PLACEMENT (P): FLACA WEAVER [id number] -1950 M Exm Date: JUN 22, 2024@11:48 Req Phys: ANGELA HOLDEN Loc: [facility]/06-22-2024@17:14 Img Loc: CT IMAGING Service: [place] [address] (Case [id number] COMPLETE) CT SCAN FOR NEEDLE PLACEMENT (CT Detailed) CPT:35854 Reason for Study: l pelvic abscess drain Clinical History: Report Status: Verified Date Reported: JUN 22, 2024 Date Verified: JUN 22, 2024 Survey Research Teacher E-Sig:/ES/LISA PENDLETON MD Report: PROCEDURES: Placement of [...] obtained. A pre-procedural Time-Out was performed per [facility] policy. The patient was placed in the supine position on the CT table. Preprocedural scan performed. The suprapubic region/lower abdominal wall was sterilely prepped and draped in the usual fashion.1% lidocaine without epinephrine was used for local anesthesia. Using real-time CT fluoroscopy, a 5 Austrian Mango Gamesesis catheter was advanced into the collection in the left pelvis. A wire was coiled in the collection. The tract into the collection was dilated to accommodate the 12 Austrian locking pigtail drainage catheter. There was return [...] Primary Interpreting Staff: LISA PENDLETON MD, RADIOLOGIST (Survey Research Teacher) /JRT LISA PENDLETON [facility] Jun 21, 2024 06:[address] (AP) ABDOMEN/PELVIS (P): FLACA WEAVER [id number] -1950 M Exm Date: JUN 21, 2024@18:09 Req Phys: DELIA MARTINEZ Pat Loc: [facility] EMERGENCY [facility]PT WALK-IN (Re Img Loc: CT IMAGING Service: [place] [address] (Case [id number] COMPLETE) CT (AP) ABDOMEN/PELVIS W CONTRAST(CT Detailed) CPT:59059 Contrast Media : Non-ionic Iodinated Reason for [...] PLASMA .CREAT EGFR(CKD-E >90 Ref: >=60 Allergies: (Shubert only) TERAZOSIN (Mar 13, 2015) Defer to [...] 21, 2024 Date Verified: JUN 21, 2024 Survey Research Teacher E-Sig:/ALEXI/CARLOS A CUNNINGHAM DO Report: EXAMINATION: CT [...] Interpreting Staff: CARLOS A CUNNINGHAM DO, RADIOLOGIST (Survey Research Teacher) /CARLOS A ROWELL [facility] May 25, 2024 09:00 AM IR FISTULOGRAM OR SINOGRAM : FLACA WEAVER [id number] -1950 M Exm Date: MAY 25, 2024@09:00 Req Phys: AMINTA PRUITT Pat Loc: [facility] X[facility] INTERVENTIONAL RADIO Img Loc: INTERVENTIONAL RADIOLOGY Service: [place] [address] (Case [id number] COMPLETE) IR FISTULOGRAM OR SINOGRAM (ANI Detailed) CPT:02293 Contrast Media : unspecified contrast media Reason [...] 25, 2024 Date Verified: MAY 25, 2024 Survey Research Teacher E-Sig:/ES/DAVID BURNS MD Report: PROCEDURES 05/25/2024 9:48 [...] Primary Interpreting Staff: DAVID BURNS MD, RADIOLOGIST (Survey Research Teacher) /CSS DAVID BURNS [facility] May 25, 2024 08:[address] (AP) ABDOMEN/PELVIS (P): FLACA WEAVER [id number] -1950 M Exm Date: MAY 25, 2024@08:23 Req Phys: DAVID BURNS Pat Loc: [facility] X[facility] INTERVENTIONAL RADIO Img Loc: CT IMAGING Service: [place] [address] (Case [id number] COMPLETE) CT (AP) ABDOMEN/PELVIS W/O CONTRA(CT Detailed) CPT:92268 Reason for Study: assess abscess and possible [...] PLASMA .CREAT EGFR(CKD-E >90 Ref: >=60 Allergies: (Shubert only) TERAZOSIN (Mar 13, 2015) Report Status: Verified Date Reported: MAY 25, 2024 Date Verified: MAY 25, 2024 Survey Research Teacher E-Sig:/ES/JESSENIA GOODMAN MD Report: EXAM: CT abdomen and pelvis without intravenous contrast. 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 TECHNIQUE: Helical acquisition of image data was performed for the abdomen and pelvis without intravenous contrast. Dose: 512.57 mGy*cm COMPARISON: CT abdomen pelvis with contrast 05/11/[address] abdomen pelvis 04/23/2024.; CT abdomen pelvis 05/05/2020 FINDINGS: BRIDGE PAINTER: Pigtail catheter projecting over the left [...] Primary Interpreting Staff: JESSENIA GOODMAN MD, RADIOLOGIST (Survey Research Teacher) Primary Interpreting Resident: YOHANNES MELO DO, CONSTRUCTION REP /JESSENIA LOUIE [facility] Pathology Reports: [...] Lab: [facility] [CLIA# [id number]] [place] [address] - - - - - - - [...] - PATHOLOGY REPORT Accession No. [id number] - - - - - - - [...] - PATHOLOGY REPORT Accession No. [id number] - - - - - - - [...] Second circumferential surgical margin, en face; E-F: Russet Repairer diverticula; G: Russet Repairer section of mesentery; H: Random textile designs sales representative section of additional adipose tissue [...] By: [facility] [CLIA# [id number]] [place] [address] $FTR - - - - - - [...] - - - - - - - FLCAA WEAVER STANDARD FORM 515 ID:[id number] SEX:M :1950 AGE: 73 LOC:[id number] ADM:Jun DX:DIVERTICULITIS PCP: Jatinder Cabrera /alexi/ EDUARDO PALOMARES MD STAFF PATHOLOGIST Signed: 07/06/2024 10:40 EDUARDO PALOMARES [facility] Jun 22, 2024 01:15 PM LR MICROBIOLOGY RE PORT: Reporting Lab: [facility] [CLIA# [id number]] [place] [address] Accession [UID]: [id number] [[id number]] Received: Jun 22, 2024@13:38 Collection sample: FLUID Collection date: Jun 22, 2024 13:15 Provider: ANGELA HOLDEN Comment on specimen: LLQ ABSCESS, RECEIVED IN ANAEROBIC TRANSPORT VIAL Test(s) ordered: GRAM STAIN.................... completed: Jun 22, 2024 15:03 CULTURE & SUSCEPTIBILITY...... completed: Jun 25, 2024 * BACTERIOLOGY FINAL REPORT => Jun 25, 2024 10:56 TECH CODE: [id number] GRAM STAIN: DIRECT SMEAR of specimen before [...] By: [facility] [CLIA# [id number]] [place] [address] [facility] Jun 22, 2024 01:15 PM LR MICROBIOLOGY RE PORT: Reporting Lab: [facility] [CLIA# [id number]] [place] [address] Accession [UID]: [id number] [[id number]] Received: Jun 22, 2024@13:38 Collection sample: FLUID Collection date: Jun 22, 2024 13:15 Provider: ANGELA HOLDEN Comment on specimen: LLQ ABSCESS, RECEIVED IN ANAEROBIC TRANSPORT VIAL Test(s) ordered: ANAEROBIC CULTURE............. completed: Jun 28, 2024 * BACTERIOLOGY FINAL REPORT => Jun 28, 2024 10:08 [facility] CODE: [id number] CULTURE RESULTS: HEAVY GROWTH MIXED ANAEROBES Comment: [...] Performed By: [facility] [IA# [id number]] [place] [address] [facility] Jun 21, 2024 06:12 PM LR MICROBIOLOGY RE PORT: Reporting Lab: [facility] [IA# [id number]] [place] [address] Accession [UID]: [id number] [[id number]] Received: Jun 21, 2024@18:12 Collection sample: BLOOD [...] Performed By: [facility] [[facility]# [id number]] [place] [address] [facility] Jun 21, 2024 06:11 PM LR MICROBIOLOGY RE PORT: Reporting Lab: [facility] [IA# [id number]] [place] [address] Accession [UID]: [id number] [[id number]] Received: Jun 21, 2024@18:11 Collection sample: BLOOD [...] By: [facility] [CLIA# [id number]] [place] [address] [facility] Jun 08, 2024 11:00 AM LR MICROBIOLOGY RE PORT: Reporting Lab: [facility] [CLIA# [id number]] [place] [address] Accession [UID]: [id number] [[id number]] Received: Jun 08, 2024@11:00 Collection sample: URINE Collection date: Jun 08, 2024 11:00 Provider: MARYBETH POWELL Comment on specimen: urine Test(s) ordered: CULTURE & SUSCEPTIBILITY...... completed: Jun 09, 2024 * BACTERIOLOGY FINAL REPORT => Jun 09, 2024 19:12 TECH CODE: [id number] CULTURE RESULTS: ESCHERICHIA COLI - Quantity: >100,000 [...] By: [facility] [CLIA# [id number]] [place] [address] [facility]
--- OUTSIDE RECORDS SUMMARY | 2024-07-16 07:31 | XMS_ITS | Encounter Summary ---
Author Name [facility] [place] Organization [facility] [place] [facility] [place] Address [address] [place] [address] Care Team Providers Care Roads Superintendent Name Role Phone JATINDER CABRERA Primary Care [...] PART A Sep 29, 2016 PART A [id number] JUDY WEAVER PATIENT Selected Encounter This section includes the information on record at [place] for the Encounter. Date/Time Encounter Type Encounter Description Reason Pro vider Source Jun 22, 2024 11:24 AM Inpatient Visit CLINICAL PHARMACY [facility] Encounter [...] 07:00 AM AM[place]ULATORY - NONE [place] [facility] Jun 27, 2024 07:30 AM [facility] Jun 27, 2024 08:00 AM [place] [facility] Jul 03, 2024 05:55 [facility] Jul 13, 2024 08:15 AM AMBULATORY - NONE [facility] Active, Pending, [...] - LAB BLOOD [facility] Jul 03, 2024 12:00 AM [...] PM Reporting Lab: [facility] [address] Performing Lab: [facility] [address] PHOSPHORUS 3.0 mg/dL 2.3-4.3 Jul 10, 2024 07:16 AM [facility] BASIC METABOLIC PANEL+MG Specimen Type: PLASMA No comment entered. Ordering Provider: JUANCARLOS ECHOLS S Report Released Date/Time: Jul 09, 2024 12:23 PM Reporting Lab: [facility] [address] Performing Lab: [facility] [address] CREATININE 0.7 mg/dL 0.7-1.2 UREA NITROGEN 27 [...] PM Reporting Lab: [facility] [address] Performing Lab: [facility] [address] WBC 18.8 H 4.0-11.0 RBC 5.08 4.60-6.20 [...] PM Reporting Lab: [facility] [address] Performing Lab: [facility] [address] WBC 15.3 H 4.0-11.0 RBC 4.91 4.60-6.20 [...] AM Reporting Lab: [facility] [address] Performing Lab: [facility] [address] URINE COLOR YELLOW SPECIFIC GRAVITY >1.050 H [...] PM Reporting Lab: [facility] [address] Performing Lab: [facility] [address] WBC 17.5 H 4.0-11.0 RBC 4.88 4.60-6.20 [...] PM Reporting Lab: [facility] [address] Performing Lab: [facility] [address] PHOSPHORUS 2.6 mg/dL 2.3-4.3 Jul 08, 2024 09:54 AM [facility] BASIC METABOLIC PANEL+MG Specimen Type: PLASMA Comment: Specimen received in Lab at: 0952 Ordering Provider: JUANCARLOS ECHOLS Report Released Date/Time: Jul 07, 2024 04:49 PM Reporting Lab: [facility] [address] Performing Lab: [facility] [address] CREATININE 0.9 mg/dL 0.7-1.2 UREA NITROGEN 26 [...] PM Reporting Lab: [facility] [address] Performing Lab: [facility] [address] C DIFF TOX B GENE PCR NEGATIVE Negative Jul 07, 2024 07:41 AM [facility] PHOSPHORUS Specimen Type: PLASMA No comment entered. Ordering Provider: JEVON ZAZUETA Report Released Date/Time: Jul 06, 2024 03:44 PM Reporting Lab: [facility] [address] Performing Lab: [facility] [address] PHOSPHORUS 3.1 mg/dL 2.3-4.3 Jul 07, 2024 07:41 AM [facility] BASIC METABOLIC PANEL+MG Specimen Type: PLASMA No comment entered. Ordering Provider: JEVON ZAZUETA Report Released Date/Time: Jul 06, 2024 03:44 PM Reporting Lab: [facility] [address] Performing Lab: [facility] [address] CREATININE 0.9 mg/dL 0.7-1.2 UREA NITROGEN 20 [...] PM Reporting Lab: [facility] [address] Performing Lab: [facility] [address] WBC 21.2 H 4.0-11.0 RBC 5.09 4.60-6.20 [...] PM Reporting Lab: [facility] [address] Performing Lab: [facility] [address] WBC 18.0 H 4.0-11.0 RBC 4.83 4.60-6.20 [...] PM Reporting Lab: [facility] [address] Performing Lab: [facility] [address] PHOSPHORUS 3.6 mg/dL 2.3-4.3 Jul 06, 2024 07:21 AM [facility] BASIC METABOLIC PANEL+MG Specimen Type: PLASMA No comment entered. Ordering Provider: JEVON ZAZUETA Report Released Date/Time: Jul 05, 2024 01:22 PM Reporting Lab: [facility] [address] Performing Lab: [facility] [address] CREATININE 0.7 mg/dL 0.7-1.2 UREA NITROGEN 12 [...] AM Reporting Lab: [facility] [address] Performing Lab: [facility] [address] MAGNESIUM 2.0 mg/dL 1.6-2.6 Jul 05, 2024 07:17 AM [facility] PHOSPHORUS Specimen Type: PLASMA No comment entered. Ordering Provider: JUANCARLOS ECHOLS S Report Released Date/Time: Jul 04, 2024 09:39 AM Reporting Lab: [facility] [address] Performing Lab: [facility] [address] PHOSPHORUS 2.0 mg/dL L 2.3-4.3 Jul 05, 2024 07:17 AM [facility] BASIC METABOLIC PANEL+MG Specimen Type: PLASMA No comment entered. Ordering Provider: JUANCARLOS ECHOLS S Report Released Date/Time: Jul 04, 2024 09:39 AM Reporting Lab: [facility] [address] Performing Lab: [facility] [address] CREATININE 0.7 mg/dL 0.7-1.2 UREA NITROGEN 12 [...] AM Reporting Lab: [facility] [address] Performing Lab: [facility] [address] WBC 18.3 H 4.0-11.0 RBC 4.49 L [...] PM Reporting Lab: [facility] [address] Performing Lab: [facility] [address] CREATININE 0.7 mg/dL 0.7-1.2 UREA NITROGEN 16 [...] PM Reporting Lab: [facility] [address] Performing Lab: [facility] [address] PHOSPHORUS 2.8 mg/dL 2.3-4.3 Jul 04, 2024 07:16 AM [facility] CBC Specimen Type: BLOOD No comment entered. Ordering Provider: GABINO CAMERON Report Released Date/Time: Jul 03, 2024 06:31 PM Reporting Lab: [facility] [address] Performing Lab: [facility] [address] WBC 20.6 H 4.0-11.0 RBC 4.63 4.60-6.20 [...] PM Reporting Lab: [facility] [address] Performing Lab: [facility] [address] WBC 20.6 H 4.0-11.0 RBC 4.63 4.60-6.20 [...] PM Reporting Lab: [facility] [address] Performing Lab: [facility] [address] BNP 292 pg/mL H <99 Jul 03, 2024 10:32 PM [facility] FINGERSTICK GLUCOSE Specimen Type: BLOOD Comment: Save Result Nurse Notified Ordering Provider: KATELYNN PERSON Report Released Date/Time: Jul 03, 2024 10:50 PM Reporting Lab: [facility] [address] Performing Lab: [facility] [address] FINGERSTICK GLUCOSE 126 mg/dL H 70-100 Jul 03, 2024 05:33 PM [facility] FINGERSTICK GLUCOSE Specimen Type: BLOOD Comment: Save Result Nurse Notified Ordering Provider: KATELYNN PERSON Report Released Date/Time: Jul 03, 2024 05:46 PM Reporting Lab: [facility] [address] Performing Lab: [facility] [address] FINGERSTICK GLUCOSE 141 mg/dL H 70-100 Jul 03, 2024 02:31 PM [facility] POC ABG/ELECTROLYTES Specimen Type: ARTERIAL BLOOD Comment: FIO2 = 97% Patient Temp: 36.0 C Sample Type = ARTERIAL Ordering Provider: MAZIN ARREDONDO Report Released Date/Time: Jul 03, 2024 01:48 PM Reporting Lab: [facility] [address] Performing Lab: [facility] [address] POC PH 7.387 7.35-7.45 POC PCO2 34.4 [...] PM Reporting Lab: [facility] [address] Performing Lab: [facility] [address] POC PH 7.280 L 7.35-7.45 POC PCO2 [...] PM Reporting Lab: [facility] [address] Performing Lab: [facility] [address] URINE COLOR YELLOW SPECIFIC GRAVITY 1.031 1.003-1.03 [...] PM Reporting Lab: [facility] [address] Performing Lab: [facility] [address] WBC 15.8 H 4.0-11.0 RBC 5.11 4.60-6.20 [...] PM Reporting Lab: [facility] [address] Performing Lab: [facility] [address] CREATININE 0.8 mg/dL 0.7-1.2 UREA NITROGEN 13 [...] PM Reporting Lab: [facility] [address] Performing Lab: [facility] [address] WBC 15.5 H 4.0-11.0 RBC 4.93 4.60-6.20 [...] PM Reporting Lab: [facility] [address] Performing Lab: [facility] [address] CREATININE 0.7 mg/dL 0.7-1.2 UREA NITROGEN 16 [...] PM Reporting Lab: [facility] [address] Performing Lab: [facility] [address] WBC 14.9 H 4.0-11.0 RBC 5.09 4.60-6.20 [...] PM Reporting Lab: [facility] [address] Performing Lab: [facility] [address] WBC 16.9 H 4.0-11.0 RBC 5.28 4.60-6.20 [...] PM Reporting Lab: [facility] [address] Performing Lab: [facility] [address] CREATININE 0.7 mg/dL 0.7-1.2 UREA NITROGEN 17 [...] PM Reporting Lab: [facility] [address] Performing Lab: [facility] [address] URINE COLOR YELLOW SPECIFIC GRAVITY 1.041 H [...] PM Reporting Lab: [facility] [address] Performing Lab: [facility] [address] POC CREATININE 1.1 mg/dL 0.6-1.3 Jun 21, 2024 05:30 PM [facility] POC ABG/LACTATE Specimen Type: VENOUS BLOOD No comment entered. Ordering Provider: DELIA MARTINEZ Report Released Date/Time: Jun 21, 2024 06:07 PM Reporting Lab: [facility] [address] Performing Lab: [facility] [address] POC PH 7.470 H 7.31-7.41 POC PCO2 [...] PM Reporting Lab: [facility] [address] Performing Lab: [facility] [address] .INR 1.2 H 0.8-1.1 .PT 13.9 s H 9.4-12.5 Jun 21, 2024 05:24 PM [facility] LIPASE Specimen Type: PLASMA No comment entered. Ordering Provider: DELIA MARTINEZ Report Released Date/Time: Jun 21, 2024 05:30 PM Reporting Lab: [facility] [address] Performing Lab: [facility] [address] LIPASE 32 U/L <60 Jun 21, 2024 05:24 PM [facility] EXTRA GOLD GEL TUBE Specimen Type: SERUM No comment entered. Ordering Provider: DELIA MARTINEZ Report Released Date/Time: Jun 21, 2024 05:41 PM Reporting Lab: [facility] [address] Performing Lab: [facility] [address] EXTRA GOLD GEL TUBE RECEIVED Jun 21, 2024 05:24 PM [facility] COMPREHENSIVE METABOLIC PANEL+MG Specimen Type: PLASMA No comment entered. Ordering Provider: DELIA MARTINEZ Report Released Date/Time: Jun 21, 2024 05:30 PM Reporting Lab: [facility] [address] Performing Lab: [facility] [address] CREATININE 0.9 mg/dL 0.7-1.2 UREA NITROGEN 29 [...] PM Reporting Lab: [facility] [address] Performing Lab: [facility] [address] WBC 21.3 H 4.0-11.0 RBC 5.48 4.60-6.20 [...] May 28, 2024 09:02 AM Reporting Lab: [facility] [address] Performing Lab: [facility] [address] .INR 1.0 0.8-1.1 .PT 11.8 s 9.4-12.5 Jun 08, 2024 10:59 AM [facility] CBC Specimen Type: BLOOD No comment entered. Ordering Provider: MARYBETH POWELL Report Released Date/Time: May 28, 2024 09:02 AM Reporting Lab: [facility] [address] Performing Lab: [facility] [address] WBC 16.1 H 4.0-11.0 RBC 5.02 4.60-6.20 [...] May 28, 2024 09:02 AM Reporting Lab: [facility] [address] Performing Lab: [facility] [address] HEMOGLOBIN A1C 4.9 4.0-6.0 Jun 08, 2024 10:59 AM [facility] BASIC METABOLIC PANEL+MG Specimen Type: PLASMA No comment entered. Ordering Provider: MARYBETH POWELL Report Released Date/Time: May 28, 2024 09:02 AM Reporting Lab: [facility] [address] Performing Lab: [facility] [address] CREATININE 0.9 mg/dL 0.7-1.2 UREA NITROGEN 15 [...] 2024 01:40 PM 86 116/59 18 0 [facility] Jun 22, 2024 04:22 AM 7 [facility] Jun 22, 2024 12:22 AM 5 [facility] Social History: Smoking Status (Most [...] 2 VIEWS PA AND LAT: FLACA WEAVER [id number] -1950 M Exm Date: JUL 08, 2024@10:09 Req Phys: KATELYNN PERSON Pat Loc: 07-08-2024@11:49 Img Loc: MAIN X-RAY Service: [place] [address] (Case 24 COMPLETE) CHEST 2 VIEWS PA AND LAT (RAD Detailed) CPT:71117 Reason for Study: Uptrending WBC, POD 5 [...] 08, 2024 Date Verified: JUL 08, 2024 Machine Filler Servicer E-Sig: Report: CHEST 2 VIEWS PA AND [...] cardiopulmonary disease. READING PHYSICIAN: Sarbjit Vaughn M.D. -[phone] 07/08/2024 12:46 [facility] National Teleradiology Program [phone] (For Medical Practitioner Use Only) Attention Patients / Veterans: If you have questions or concerns about these test results, please contact your ordering provider or primary care team. Primary Interpreting Staff: RADIOLOGY,OUTSIDE SERVICE, Staff Physician / RADIOLOGY,OUTSIDE SERVICE [facility] Jul 08, 2024 10:[address] (AP) ABDOMEN/PELVIS W CONTRAST: FLACA WEAVER [id number] -1950 M Exm Date: JUL 08, 2024@10:00 Req Phys: KATELYNN PERSON Pat Loc: 07-08-2024@12:07 Img Loc: CT IMAGING Service: [place] [address] (Case 22 COMPLETE) CT (AP) ABDOMEN/PELVIS W CONTRAST(CT Detailed) CPT:06090 Contrast Media : Non-ionic Iodinated Reason for [...] PLASMA .CREAT EGFR(CKD-E >90 Ref: >=60 Allergies: ([place] only) TERAZOSIN (Mar 13, 2015) Report Status: Verified Date Reported: JUL 08, 2024 Date Verified: JUL 08, 2024 Machine Filler Servicer E-Sig: Report: CT (AP) ABDOMEN/PELVIS W CONTRAST [...] as noted above READING PHYSICIAN: Celestino Blanc -[id number] 07/08/2024 13:04 [facility] National Teleradiology Program [phone] (For Medical Practitioner Use Only) Attention Patients / Veterans: If you have questions or concerns about these test results, please contact your ordering provider or primary care team. Primary Interpreting Staff: RADIOLOGY,OUTSIDE SERVICE, Staff Physician / RADIOLOGY,OUTSIDE SERVICE [facility] Jun 22, 2024 11:49 AM ABSCESS DRAIN PLACEMENT PERITONEAL (P): FLACA WEAVER [id number] -1950 M Exm Date: JUN 22, 2024@11:49 Req Phys: ANGELA HOLDEN Loc: [facility]06-22-2024@17:14 Img Loc: INTERVENTIONAL RADIOLOGY Service: [place] [address] (Case [id number] COMPLETE) IR PERITONEAL/RETROPERITONEAL PER(ANI Detailed) CPT:28962 Reason for Study: diverticulitis with abscess (Case [id number] COMPLETE) IR MOD SEDATION 10-22 MIN (ANI Detailed) CPT:12195 Clinical History: [place] IS NOT under investigation for COVID-19 or is COVID-19 negative 73 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 please place abscess drain. Contact number for responsible provider who can be reached for any questions or notifications of critical findings: [phone] n/a LAST CREATININE 0.9 (06/21/24) Report Status: Verified Date Reported: JUN 22, 2024 Date Verified: JUN 22, 2024 Machine Filler Servicer E-Sig:/ES/LISA PENDLETON MD Report: PROCEDURES: Placement of [...] Using real-time CT fluoroscopy, a 5 [place] [employer] catheter was advanced into the collection in the left pelvis. A wire was coiled in the collection. The tract into the collection was dilated to accommodate the 12 [place] locking pigtail drainage catheter. There was return [...] Primary Interpreting Staff: LISA PENDLETON MD, RADIOLOGIST (Machine Filler Servicer) /LISA CARDONA [facility] Jun 22, 2024 11:[address] NEEDLE PLACEMENT (P): FLACA WEAVER [id number] -1950 M Exm Date: JUN 22, 2024@11:48 Req Phys: ANGELA HOLDEN Amanda Loc: 2KC06-22-2024@17:14 Img Loc: CT IMAGING [facility] [place] [place] [address] (Case [id number] COMPLETE) CT SCAN FOR NEEDLE PLACEMENT (CT Detailed) CPT:62073 Reason for Study: l pelvic abscess drain Clinical History: Report Status: Verified Date Reported: JUN 22, 2024 Date Verified: JUN 22, 2024 Machine Filler Servicer E-Sig:/ES/LISA PENDLETON MD Report: PROCEDURES: Placement of [...] Using real-time CT fluoroscopy, a 5 [place] [employer] catheter was advanced into the collection in the left pelvis. A wire was coiled in the collection. The tract into the collection was dilated to accommodate the 12 [place] locking pigtail drainage catheter. There was return [...] Primary Interpreting Staff: LISA PENDLETON MD, RADIOLOGIST (Machine Filler Servicer) /JRT LISA PENDLETON [facility] Jun 21, 2024 06:[address] (AP) ABDOMEN/PELVIS (P): FLACA WEAVER [id number] -1950 M Exm Date: JUN 21, 2024@18:09 Req Phys: DELIA MARTINEZ Pat Loc: [facility] (Re Img Loc: CT IMAGING Service: [place] [address] (Case [id number] COMPLETE) CT (AP) ABDOMEN/PELVIS W CONTRAST(CT Detailed) CPT:97680 Contrast Media : Non-ionic Iodinated Reason for [...] PLASMA .CREAT EGFR(CKD-E >90 Ref: >=60 Allergies: ([place] only) TERAZOSIN (Mar 13, 2015) Defer [...] 21, 2024 Date Verified: JUN 21, 2024 Machine Filler Servicer E-Sig:/ALEXI/CARLOS A CUNNINGHAM DO Report: EXAMINATION: CT [...] Interpreting Staff: CARLOS A CUNNINGHAM DO, RADIOLOGIST (Machine Filler Servicer) /CARLOS A ROWELL [facility] May 25, 2024 09:00 AM IR FISTULOGRAM OR SINOGRAM : FLACA WEAVER [id number] -1950 M Exm Date: MAY 25, 2024@09:00 Req Phys: IQRAAMINTA FRANCISCO Pat Loc: [facility] XRAY INTERVENTIONAL RADIO Img Loc: INTERVENTIONAL RADIOLOGY Service: [place] [address] (Case [id number] COMPLETE) IR FISTULOGRAM OR SINOGRAM (ANI Detailed) CPT:64238 Contrast Media : unspecified contrast media Reason [...] 25, 2024 Date Verified: MAY 25, 2024 Machine Filler Servicer E-Sig:/ES/DAVID BURNS MD Report: PROCEDURES 05/25/2024 9:48 [...] Primary Interpreting Staff: DAVID BURNS MD, RADIOLOGIST (Machine Filler Servicer) /CSS DAVID BURNS [facility] May 25, 2024 08:[address] (AP) ABDOMEN/PELVIS (P): FLACA WEAVER [id number] -1950 M Exm Date: MAY 25, 2024@08:23 Req Phys: DAVID BURNS [facility] Loc: MSP XRAY INTERVENTIONAL RADIO Img Loc: CT IMAGING Service: [place] [address] (Case [id number] COMPLETE) CT (AP) ABDOMEN/PELVIS W/O CONTRA(CT Detailed) CPT:19258 Reason for Study: assess abscess and possible [...] PLASMA .CREAT EGFR(CKD-E >90 Ref: >=60 Allergies: ([place] only) TERAZOSIN (Mar 13, 2015) Report Status: Verified Date Reported: MAY 25, 2024 Date Verified: MAY 25, 2024 Machine Filler Servicer E-Sig:/ES/JESSENIA GOODMAN MD Report: EXAM: CT abdomen and pelvis without intravenous contrast. 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 TECHNIQUE: Helical acquisition of image data was performed for the abdomen and pelvis without intravenous contrast. Dose: 512.57 mGy*cm COMPARISON: CT abdomen pelvis with contrast 05/11/[address] abdomen pelvis 04/23/2024.; CT abdomen pelvis 05/05/2020 FINDINGS: CLUB ROOM ATTENDANT: Pigtail catheter projecting over the left [...] Primary Interpreting Staff: JESSENIA GOODMAN MD, RADIOLOGIST (Machine Filler Servicer) Primary Interpreting Resident: YOHANNES MELO DO, WASH RACK OPERATOR /CMN JESSENIA GOODMAN [facility] Pathology Reports: +/- [...] Reporting Lab: [facility] [CLIA# [id number]] [place] [address] - - - - - - - [...] - PATHOLOGY REPORT Accession No. [id number] - - - - - - - [...] - PATHOLOGY REPORT Accession No. [id number] - - - - - - - [...] Second circumferential surgical margin, en face; E-F: Electromagnet Crane Operator diverticula; G: Electromagnet Crane Operator section of mesentery; H: Random sales representative [...] One colonic tissue ring, bisected transversely. [facility]: Microscopic examination performed. DIAGNOSIS: 1. Colon, sigmoid, sigmoidectomy-- - Diverticulosis with perforation and focal abscess formation 2. Colon, anastomotic rings, excision-- - Viable colonic mucosa without diagnostic abnormality /es/ EDUARDO PALOMARES MD STAFF PATHOLOGIST Signed Jul 06, 2024@10:40 Performing Laboratory: Surgical Pathology Report Performed By: [facility] [CLIA# [id number]] [place] [address] $FTR - - - - - - [...] - - FLACA WEAVER STANDARD FORM 515 ID:[id number] SEX:M :1950 AGE: 73 LOC:54954 ADM:Jun DX:DIVERTICULITIS PCP: Jatinder Cabrera /alexi/ EDUARDO PALOMARES MD STAFF PATHOLOGIST Signed: 07/06/2024 10:40 EDUARDO PALOMARES [facility] Jun 22, 2024 01:15 PM LR MICROBIOLOGY RE PORT: Reporting Lab: [facility] [CLIA# [id number]] [place] [address] Accession [UID]: [id number] [[id number]] Received: Jun 22, 2024@13:38 Collection sample: FLUID Collection date: Jun 22, 2024 13:15 Provider: ANGELA HOLDEN Comment on specimen: LLQ ABSCESS, RECEIVED IN ANAEROBIC TRANSPORT VIAL Test(s) ordered: GRAM STAIN.................... completed: Jun 22, 2024 15:03 CULTURE & SUSCEPTIBILITY...... completed: Jun 25, 2024 * BACTERIOLOGY FINAL REPORT => Jun 25, 2024 10:56 TECH CODE: [id number] GRAM STAIN: DIRECT SMEAR of specimen before [...] Performed By: [facility] [CLIA# [id number]] [place] [address] [facility] Jun 22, 2024 01:15 PM LR MICROBIOLOGY RE PORT: Reporting Lab: [facility] [CLIA# [id number]] [place] [address] Accession [UID]: [id number] [[id number]] Received: Jun 22, 2024@13:38 Collection sample: FLUID Collection date: Jun 22, 2024 13:15 Provider: ANGELA HOLDEN Comment on specimen: LLQ ABSCESS, RECEIVED IN ANAEROBIC TRANSPORT VIAL Test(s) ordered: ANAEROBIC CULTURE............. completed: Jun 28, 2024 * BACTERIOLOGY FINAL REPORT => Jun 28, 2024 10:08 [facility] CODE: [id number] CULTURE RESULTS: HEAVY GROWTH MIXED ANAEROBES Comment: [...] Performed By: [facility] [CLIA# [id number]] [place] [address] [facility] Jun 21, 2024 06:12 PM LR MICROBIOLOGY RE PORT: Reporting Lab: [facility] [IA# [id number]] [place] [address] Accession [UID]: [id number] [[id number]] Received: Jun 21, 2024@18:12 Collection sample: BLOOD [...] Report Performed By: [facility] [IA# [id number]] [place] [address] [facility] Jun 21, 2024 06:11 PM LR MICROBIOLOGY RE PORT: Reporting Lab: [facility] [IA# [id number]] [place] [address] Accession [UID]: [id number] [[id number]] Received: Jun 21, 2024@18:11 Collection sample: BLOOD [...] Performed By: [facility] [CLIA# [id number]] [place] [address] [facility] Jun 08, 2024 11:00 AM LR MICROBIOLOGY RE PORT: Reporting Lab: [facility] [CLIA# [id number]] [place] [address] Accession [UID]: [id number] [[id number]] Received: Jun 08, 2024@11:00 Collection sample: URINE Collection date: Jun 08, 2024 11:00 Provider: MARYBETH POWELL Comment on specimen: urine Test(s) ordered: CULTURE & SUSCEPTIBILITY...... completed: Jun 09, 2024 * BACTERIOLOGY FINAL REPORT => Jun 09, 2024 19:12 TECH CODE: [id number] CULTURE RESULTS: ESCHERICHIA COLI - Quantity: >100,000 [...] Performed By: [facility] [CLIA# [id number]] [place] [address] [facility] Encounter Notes: All associated encounter notes This section contains the clinical notes associated to the Encounter. Date/Time Encounter Note(s) Provider Source Jun 22, 2024 11:34 AM ADDENDUM: LOCAL TITLE: Addendum STANDARD TITLE: ADDENDUM DATE OF NOTE: JUN 22, 2024@11:34:19 ENTRY DATE: JUN 22, 2024@11:34:20 AUTHOR: YULIA CORRAL EXP COSIGNER: URGENCY: STATUS: COMPLETED Patient reported to his nurse that the medications that he just took from his home supply were: Atorvastatin, Furosemide, HCTZ/Lisinopril, Spironolactone, Empagliflozin, Isosorbide /es/ YULIA CORRAL [facility] CLINICAL PHARMACIST Signed: 06/22/2024 11:36 Receipt Acknowledged By: * AWAITING SIGNATURE * MERY NGUYEN 06/22/2024 11:57 /es/ CRUZ CASE PharmD --- Original Document --- 06/22/24 DRUG RECONCILIATION ON ADMIT: PHARMACY MEDICATION HISTORY NOTE ====== Medication & [...] were no relevant meds for the patient. See [facility] Emergency Department documentation for medications given during emergency department visit. Seasonal Influenza Immunization: 05/15/2024 [place]* NON-INTERVIEW Patient has NOT BEEN INTERVIEWED by pharmacy regarding outpatient medication use prior to admit. Reason for Non-Interview: I attempted to interview but pt was very upset, using profanity, and stated that he just took his own medications that he brought in from home and nobody here knows what they are doing. He refused to discuss with me which medications he took and was unwilling to continue the conversation. Allergies: FACILITY ALLERGY/ADR -------- No Remote Allergy/ADR Data available for this patient [facility] Recently discontinued prescriptions: Not applicable [facility] [phone] Source of Info: [facility] Drug Last Refills Qty Filled Remaining ---- --- ------ --------- ACETAMINOPHEN 325MG TAB 300 04/26/2024 (2) TWO Q6H PRN FOR PAIN ATORVASTATIN CALCIUM 40MG TAB 45 04/03/2024 (0) ONE-HALF QHS FOR CHOLESTEROL COLON ELECTROLYTE LAVAGE PWD FOR SOLN 1 05/28/2024 (0) 1 CONTAINER (4 LITERS) ONCE PRE-OP FOR COLO-RECTAL SURGERY EMPAGLIFLOZIN 25MG TAB 45 05/11/2024 (2) ONE-HALF QDAY FUROSEMIDE 20MG TAB 90 06/24/2024 (3) ONE QDAY FOR EXCESS FLUID HCTZ 12.5/LISINOPRIL 10MG TAB 45 05/07/2024 (3) ONE HALF QDAY FOR BLOOD PRESSURE ISOSORBIDE MONONITRATE 30MG SA TAB 90 03/09/2024 (2) ONE QDAY FOR CHEST PAIN METRONIDAZOLE 500MG TAB 3 05/28/2024 (0) ONE TID - AT 1PM, 2PM, AND 11PM THE DAY BEFORE PROCEDURE ALONG WITH NEOMYCIN NEOMYCIN SULFATE 500MG TAB 6 05/28/2024 (0) TWO TID PREOP AT 1PM, 2PM AND 11PM ON THE DAY BEFORE COLORECTAL SURGERY (ALONG WITH METRONIDAZOLE) NITROFURANTOIN MONO/MACRO 100MG SA CAP 14 06/12/2024 (0) ONE BID FOR UTI NITROGLYCERIN 0.4MG SL TAB 100 06/12/2024 (0) DISSOLVE ONE UNDER THE TONGUE TID NEEDED CHEST PAIN FOR CHEST PAIN * MAY REPEAT EVERY 5 MINUTES--NO MORE THAN 3 TOTAL PSYLLIUM ORAL PWD 1170 01/31/2024 (3) 2 TEASPOONSFUL QDAY FOR CONSTIPATION SPIRONOLACTONE 25MG TAB 45 06/11/2024 (2) ONE-HALF QDAY FOR BLOOD PRESSURE The following prescriptions have AMOXICILLIN 875/CLAV K 125MG TAB 20 04/26/2024 (0) 1 BID Indication: ABSCESS, COLOVESICULAR FISTULA : 05/26/2024 PHENAZOPYRIDINE HCL 100MG TAB 90 04/26/2024 (0) TWO TID PRN FOR BLADDER PAIN : 05/26/2024 Consider the following inpatient medications when reviewing [...] 5MG PO Q4H PRN for pain ACTIVE /es/ YULIA CORRAL [facility] CLINICAL PHARMACIST Signed: 06/22/2024 11:28 Receipt Acknowledged By: * AWAITING SIGNATURE * MERY NGUYEN 06/22/2024 11:51 /es/ CRUZ CASE PharmD YULIA CORRAL [facility] Jun 22, 2024 11:24 AM PHARMACY MEDICATIO N MGT NOTE: LOCAL TITLE: DRUG RECONCILIATION ON ADMIT STANDARD TITLE: PHARMACY MEDICATION MGT NOTE DATE OF NOTE: JUN 22, 2024@11:24 ENTRY DATE: JUN 22, 2024@11:24:46 AUTHOR: YULIA CORRAL EXP COSIGNER: URGENCY: STATUS: COMPLETED DRUG RECONCILIATION ON ADMIT Has ADDENDA PHARMACY MEDICATION HISTORY NOTE ====== Medication & [...] were no relevant meds for the patient. See [facility] Emergency Department documentation for medications given during emergency department visit. Seasonal Influenza Immunization: 05/15/2024 [place]* NON-INTERVIEW Patient has NOT BEEN INTERVIEWED by pharmacy regarding outpatient medication use prior to admit. Reason for Non-Interview: I attempted to interview but pt was very upset, using profanity, and stated that he just took his own medications that he brought in from home and nobody here knows what they are doing. He refused to discuss with me which medications he took and was unwilling to continue the conversation. Allergies: FACILITY ALLERGY/ADR -------- No Remote Allergy/ADR Data available for this patient [facility] [place] Recently discontinued prescriptions: Not applicable [facility] [phone] Source of Info: [facility] Drug Last Refills Qty Filled Remaining ---- --- ------ --------- ACETAMINOPHEN 325MG TAB 300 04/26/2024 (2) TWO Q6H PRN FOR PAIN ATORVASTATIN CALCIUM 40MG TAB 45 04/03/2024 (0) ONE-HALF QHS FOR CHOLESTEROL COLON ELECTROLYTE LAVAGE PWD FOR SOLN 1 05/28/2024 (0) 1 CONTAINER (4 LITERS) ONCE PRE-OP FOR COLO-RECTAL SURGERY EMPAGLIFLOZIN 25MG TAB 45 05/11/2024 (2) ONE-HALF QDAY FUROSEMIDE 20MG TAB 90 06/24/2024 (3) ONE QDAY FOR EXCESS FLUID HCTZ 12.5/LISINOPRIL 10MG TAB 45 05/07/2024 (3) ONE HALF QDAY FOR BLOOD PRESSURE ISOSORBIDE MONONITRATE 30MG SA TAB 90 03/09/2024 (2) ONE QDAY FOR CHEST PAIN METRONIDAZOLE 500MG TAB 3 05/28/2024 (0) ONE TID - AT 1PM, 2PM, AND 11PM THE DAY BEFORE PROCEDURE ALONG WITH NEOMYCIN NEOMYCIN SULFATE 500MG TAB 6 05/28/2024 (0) TWO TID PREOP AT 1PM, 2PM AND 11PM ON THE DAY BEFORE COLORECTAL SURGERY (ALONG WITH METRONIDAZOLE) NITROFURANTOIN MONO/MACRO 100MG SA CAP 14 06/12/2024 (0) ONE BID FOR UTI NITROGLYCERIN 0.4MG SL TAB 100 06/12/2024 (0) DISSOLVE ONE UNDER THE TONGUE TID NEEDED CHEST PAIN FOR CHEST PAIN * MAY REPEAT EVERY 5 MINUTES--NO MORE THAN 3 TOTAL PSYLLIUM ORAL PWD 1170 01/31/2024 (3) 2 TEASPOONSFUL QDAY FOR CONSTIPATION SPIRONOLACTONE 25MG TAB 45 06/11/2024 (2) ONE-HALF QDAY FOR BLOOD PRESSURE The following prescriptions have AMOXICILLIN 875/CLAV K 125MG TAB 20 04/26/2024 (0) 1 BID Indication: ABSCESS, COLOVESICULAR FISTULA : 05/26/2024 PHENAZOPYRIDINE HCL 100MG TAB 90 04/26/2024 (0) TWO TID PRN FOR BLADDER PAIN : 05/26/2024 Consider the following inpatient medications when reviewing [...] 5MG PO Q4H PRN for pain ACTIVE /alexi/ YULIA CORRAL [facility] CLINICAL PHARMACIST Signed: 06/22/2024 11:28 Receipt Acknowledged By: 07/04/2024 02:39 /es/ MD JAMILAH MESSINA 06/22/2024 11:51 /es/ CRUZ CASE PharmD 06/22/2024 ADDENDUM STATUS: COMPLETED Patient reported to his nurse that the medications that he just took from his home supply were: Atorvastatin, Furosemide, HCTZ/Lisinopril, Spironolactone, Empagliflozin, Isosorbide /alexi/ YULIA CORRAL [facility] CLINICAL PHARMACIST Signed: 06/22/2024 11:36 Receipt Acknowledged By: * AWAITING SIGNATURE * MERY NGUYEN 06/22/2024 11:57 /alexi/ YULIA CUNNINGHAM PharmD [facility]
--- OUTSIDE RECORDS SUMMARY | 2024-07-16 07:31 | XMS_ITS | Encounter Summary ---
Author Name [facility] [place] [facility] [place] Address [address] [place] [address] Care Team Providers Care Joint Finisher Name Role Phone JATINDER CABRERA Primary Care [...] PART A Sep 29, 2016 PART A [id number] JUDY WEAVER PATIENT Selected Encounter This section includes the information on record at OR for the Encounter. Date/Time Encounter Type Encounter Description Reason Pro vider Source Jun 21, 2024 10:52 PM Inpatient Visit ADMIN PAT ACTIVTIES ([employer]) SYSTEM,CIS-ARK IHE Encounter Template Text not used [...] 27, 2024 07:00 AM AMBULATORY - NONE [facility] Jun 27, 2024 07:30 AM AMBULATORY - MEDICINE [facility] Jun 27, 2024 08:00 AM AMBULATORY - MEDICINE [facility] Jul 03, 2024 05:55 AM AMBULATORY - NONE [facility] Jul 13, 2024 08:15 AM AMBULATORY NONE [facility] Active, Pending, and Scheduled Orders This section includes a listing of several types of active, pending, and scheduled orders, including clinic medications orders, diagnostic test orders, procedure orders and consult orders; where the start date of the order is 45 days before the date of the Encounter or 45 days after the date of theEncounter. The data comes from all [facility]. Test Date/Time Test Type Test Details Facility Name May 28, 2024 12:00 AM Laboratory - Blood Bank Order TYPE & SCREEN - LAB BLOOD SP [facility] Jun 08, 2024 09:57 AM Laboratory - Chemi stry Order URINALYSIS URINE WC ONCE [facility] Jun 12, 2024 12:00 AM Laboratory - Chemi stry Order BNP PLASMA SP ONCE [facility] Jun 21, 2024 05:45 PM Laboratory - Blood Bank Order TYPE & SCREEN - LAB BLOOD [facility] Jul 03, 2024 12:00 AM Laboratory - Blood Bank Order TYPE & SCREEN - LAB BLOOD [facility] Jul 16, 2024 12:00 AM Laboratory - Chemi stry Order CBC BLOOD SP ONCE [facility] Jul 17, 2024 12:00 AM Laboratory - Chemi stry Order BASIC METABOLIC PANEL+MG PLASMA SP ONCE [facility] Lab Results: +/- 30 days [...] Range Comment Jul 10, 2024 07:16 AM [facility] PHOSPHORUS Specimen Type: PLASMA No comment entered. Ordering Provider: JUANCARLOS ECHOLS Report Released Date/Time: Jul 09, 2024 12:23 PM Reporting Lab: [facility] [address] Performing Lab: [facility] [address] PHOSPHORUS 3.0 mg/dL 2.3-4.3 Jul 10, 2024 07:16 AM [facility] BASIC METABOLIC PANEL+MG Specimen Type: PLASMA No comment entered. Ordering Provider: JUANCARLOS ECHOLS S Report Released Date/Time: Jul 09, 2024 12:23 PM Reporting Lab: [facility] [address] Performing Lab: [facility] [address] CREATININE 0.7 mg/dL 0.7-1.2 UREA NITROGEN 27 mg/dL H 8-26 GLUCOSE 104 mg/dL H 70-100 SODIUM 133 mmol/L L 136-145 POTASSIUM 4.3 mmol/L 3.5-5.1 CHLORIDE 102 mmol/L 98-107 CO2 19 mmol/L L 22-29 CALCIUM 10.1 mg/dL 8.4-10.2 MAGNESIUM 1.9 mg/dL 1.6-2.6 ANION GAP 12 mmol/L 5-15 .CREAT EGFR(CKD-EPI) >90 >60 Jul 10, 2024 07:15 AM [facility] CBC Specimen Type: BLOOD No comment entered. Ordering Provider: JUANCARLOS ECHOLS S Report Released Date/Time: Jul 09, 2024 12:23 PM Reporting Lab: [facility] [address] Performing Lab: [facility] [address] WBC 18.8 H 4.0-11.0 RBC 5.08 4.60-6.20 HGB 15.9 g/dL 13.5-17.9 HCT 46.8 41.0-54.0 MCV 92.1 fL 80.0-100.0 MCH 31.3 pg 27.0-33.0 MCHC 34.0 g/dL 32.0-37.5 PLT 479 H 150-400 MPV 10.2 fL 9.1-13.0 RDW 13.7 11.5-14.5 Jul 09, 2024 07:08 AM [facility] CBC Specimen Type: BLOOD No comment entered. Ordering Provider: QUYNH WEISS AV Report Released Date/Time: Jul 08, 2024 06:18 PM Reporting Lab: [facility] [address] Performing Lab: [facility] [address] WBC 15.3 H 4.0-11.0 RBC 4.91 4.60-6.20 HGB 15.1 g/dL 13.5-17.9 HCT 45.7 41.0-54.0 MCV 93.1 fL 80.0-100.0 MCH 30.8 pg 27.0-33.0 MCHC 33.0 g/dL 32.0-37.5 PLT 443 H 150-400 MPV 10.0 fL 9.1-13.0 RDW 13.5 11.5-14.5 Jul 08, 2024 10:50 AM [facility] URINALYSIS Specimen Type: URINE No comment entered. Ordering Provider: KATELYNN PERSON Report Released Date/Time: Jul 08, 2024 08:41 AM Reporting Lab: [facility] [address] Performing Lab: [facility] [address] URINE COLOR YELLOW SPECIFIC GRAVITY >1.050 H [...] NEGATIVE NEGATIVE Jul 08, 2024 09:54 AM [facility] CBC Specimen Type: BLOOD Comment: Specimen received in Lab at: 0952 Ordering Provider: JUANCARLOS ECHOLS Report Released Date/Time: Jul 07, 2024 04:49 PM Reporting Lab: [facility] [address] Performing Lab: [facility] [address] WBC 17.5 H 4.0-11.0 RBC 4.88 4.60-6.20 HGB 14.9 g/dL 13.5-17.9 HCT 45.7 41.0-54.0 MCV 93.6 fL 80.0-100.0 MCH 30.5 pg 27.0-33.0 MCHC 32.6 g/dL 32.0-37.5 PLT 472 H 150-400 MPV 10.2 fL 9.1-13.0 RDW 13.7 11.5-14.5 Jul 08, 2024 09:54 AM [facility] PHOSPHORUS Specimen Type: PLASMA Comment: Specimen received in Lab at: 0952 Ordering Provider: JUANCARLOS ECHOLS Report Released Date/Time: Jul 07, 2024 04:49 PM Reporting Lab: [facility] [address] Performing Lab: [facility] [address] PHOSPHORUS 2.6 mg/dL 2.3-4.3 Jul 08, 2024 09:54 AM [facility] BASIC METABOLIC PANEL+MG Specimen Type: PLASMA Comment: Specimen received in Lab at: 0952 Ordering Provider: JUANCARLOS ECHOLS Report Released Date/Time: Jul 07, 2024 04:49 PM Reporting Lab: [facility] [address] Performing Lab: [facility] [address] CREATININE 0.9 mg/dL 0.7-1.2 UREA NITROGEN 26 mg/dL 8-26 GLUCOSE 128 mg/dL H 70-100 SODIUM 134 mmol/L L 136-145 POTASSIUM 3.4 mmol/L L 3.5-5.1 CHLORIDE 100 mmol/L 98-107 CO2 24 mmol/L 22-29 CALCIUM 9.8 mg/dL 8.4-10.2 MAGNESIUM 1.8 mg/dL 1.6-2.6 ANION GAP 10 mmol/L 5-15 .CREAT EGFR(CKD-EPI) >90 >60 Jul 07, 2024 02:00 PM [facility] C DIFF PANEL Specimen Type: FECES No comment entered. Ordering Provider: JEVON ZAZUETA Report Released Date/Time: Jul 07, 2024 12:26 PM Reporting Lab: [facility] [address] Performing Lab: [facility] [address] C DIFF TOX B GENE PCR NEGATIVE Negative Jul 07, 2024 07:41 AM [facility] PHOSPHORUS Specimen Type: PLASMA No comment entered. Ordering Provider: JEVON ZAZUETA Report Released Date/Time: Jul 06, 2024 03:44 PM Reporting Lab: [facility] [address] Performing Lab: [facility] [address] PHOSPHORUS 3.1 mg/dL 2.3-4.3 Jul 07, 2024 07:41 AM [facility] BASIC METABOLIC PANEL+MG Specimen Type: PLASMA No comment entered. Ordering Provider: JEVON ZAZUETA Report Released Date/Time: Jul 06, 2024 03:44 PM Reporting Lab: [facility] [address] Performing Lab: [facility] [address] CREATININE 0.9 mg/dL 0.7-1.2 UREA NITROGEN 20 mg/dL 8-26 GLUCOSE 157 mg/dL H 70-100 SODIUM 136 mmol/L 136-145 POTASSIUM 3.7 mmol/L 3.5-5.1 CHLORIDE 102 mmol/L 98-107 CO2 21 mmol/L L 22-29 CALCIUM 9.8 mg/dL 8.4-10.2 MAGNESIUM 1.9 mg/dL 1.6-2.6 ANION GAP 13 mmol/L 5-15 .CREAT EGFR(CKD-EPI) >90 >60 Jul 07, 2024 07:40 AM [facility] CBC Specimen Type: BLOOD No comment entered. Ordering Provider: JEVON ZAZUETA Report Released Date/Time: Jul 06, 2024 03:44 PM Reporting Lab: [facility] [address] Performing Lab: [facility] [address] WBC 21.2 H 4.0-11.0 RBC 5.09 4.60-6.20 HGB 15.9 g/dL 13.5-17.9 HCT 48.3 41.0-54.0 MCV 94.9 fL 80.0-100.0 MCH 31.2 pg 27.0-33.0 MCHC 32.9 g/dL 32.0-37.5 PLT 500 H 150-400 MPV 10.3 fL 9.1-13.0 RDW 13.6 11.5-14.5 Jul 06, 2024 07:21 AM [facility] CBC Specimen Type: BLOOD No comment entered. Ordering Provider: JEVON ZAZUETA Report Released Date/Time: Jul 05, 2024 01:22 PM Reporting Lab: [facility] [address] Performing Lab: [facility] [address] WBC 18.0 H 4.0-11.0 RBC 4.83 4.60-6.20 HGB 14.6 g/dL 13.5-17.9 HCT 45.5 41.0-54.0 MCV 94.2 fL 80.0-100.0 MCH 30.2 pg 27.0-33.0 MCHC 32.1 g/dL 32.0-37.5 PLT 368 150-400 MPV 10.4 fL 9.1-13.0 RDW 13.6 11.5-14.5 Jul 06, 2024 07:21 AM [facility] PHOSPHORUS Specimen Type: PLASMA No comment entered. Ordering Provider: JEVON ZAZUETA Report Released Date/Time: Jul 05, 2024 01:22 PM Reporting Lab: [facility] [address] Performing Lab: [facility] [address] PHOSPHORUS 3.6 mg/dL 2.3-4.3 Jul 06, 2024 07:21 AM [facility] BASIC METABOLIC PANEL+MG Specimen Type: PLASMA No comment entered. Ordering Provider: JEVON ZAZUETA Report Released Date/Time: Jul 05, 2024 01:22 PM Reporting Lab: [facility] [address] Performing Lab: [facility] [address] CREATININE 0.7 mg/dL 0.7-1.2 UREA NITROGEN 12 mg/dL 8-26 GLUCOSE 108 mg/dL H 70-100 SODIUM 138 mmol/L 136-145 POTASSIUM 3.4 mmol/L L 3.5-5.1 CHLORIDE 104 mmol/L 98-107 CO2 20 mmol/L L 22-29 CALCIUM 9.3 mg/dL 8.4-10.2 MAGNESIUM 1.9 mg/dL 1.6-2.6 ANION GAP 14 mmol/L 5-15 .CREAT EGFR(CKD-EPI) >90 >60 Jul 05, 2024 07:17 AM [facility] MAGNESIUM Specimen Type: PLASMA No comment entered. Ordering Provider: JUANCARLOS ECHOLS Report Released Date/Time: Jul 04, 2024 09:39 AM Reporting Lab: [facility] [address] Performing Lab: [facility] [address] MAGNESIUM 2.0 mg/dL 1.6-2.6 Jul 05, 2024 07:17 AM [facility] PHOSPHORUS Specimen Type: PLASMA No comment entered. Ordering Provider: JUANCARLOS ECHOLS S Report Released Date/Time: Jul 04, 2024 09:39 AM Reporting Lab: [facility] [address] Performing Lab: [facility] [address] PHOSPHORUS 2.0 mg/dL L 2.3-4.3 Jul 05, 2024 07:17 AM [facility] BASIC METABOLIC PANEL+MG Specimen Type: PLASMA No comment entered. Ordering Provider: JUANCARLOS ECHOLS S Report Released Date/Time: Jul 04, 2024 09:39 AM Reporting Lab: [facility] [address] Performing Lab: [facility] [address] CREATININE 0.7 mg/dL 0.7-1.2 UREA NITROGEN 12 mg/dL 8-26 GLUCOSE 84 mg/dL 70-100 SODIUM 135 mmol/L L 136-145 POTASSIUM 3.8 mmol/L 3.5-5.1 CHLORIDE 104 mmol/L 98-107 CO2 24 mmol/L 22-29 CALCIUM 9.3 mg/dL 8.4-10.2 MAGNESIUM 2.0 mg/dL 1.6-2.6 ANION GAP 7 mmol/L 5-15 .CREAT EGFR(CKD-EPI) >90 >60 Jul 05, 2024 07:16 AM [facility] CBC Specimen Type: BLOOD No comment entered. Ordering Provider: JUANCARLOS ECHOLS S Report Released Date/Time: Jul 04, 2024 09:39 AM Reporting Lab: [facility] [address] Performing Lab: [facility] [address] WBC 18.3 H 4.0-11.0 RBC 4.49 L 4.60-6.20 HGB 14.1 g/dL 13.5-17.9 HCT 43.4 41.0-54.0 MCV 96.7 fL 80.0-100.0 MCH 31.4 pg 27.0-33.0 MCHC 32.5 g/dL 32.0-37.5 PLT 317 150-400 MPV 10.0 fL 9.1-13.0 RDW 13.9 11.5-14.5 Jul 04, 2024 07:17 AM [facility] BASIC METABOLIC PANEL+MG Specimen Type: PLASMA No comment entered. Ordering Provider: GABINO CAMERON Report Released Date/Time: Jul 03, 2024 06:31 PM Reporting Lab: [facility] [address] Performing Lab: [facility] [address] CREATININE 0.7 mg/dL 0.7-1.2 UREA NITROGEN 16 mg/dL 8-26 GLUCOSE 129 mg/dL H 70-100 SODIUM 137 mmol/L 136-145 POTASSIUM 3.7 mmol/L 3.5-5.1 CHLORIDE 107 mmol/L 98-107 CO2 22 mmol/L 22-29 CALCIUM 9.0 mg/dL 8.4-10.2 MAGNESIUM 1.9 mg/dL 1.6-2.6 ANION GAP 8 mmol/L 5-15 .CREAT EGFR(CKD-EPI) >90 >60 Jul 04, 2024 07:17 AM [facility] PHOSPHORUS Specimen Type: PLASMA No comment entered. Ordering Provider: GABINO CAMERON Report Released Date/Time: Jul 03, 2024 06:31 PM Reporting Lab: [facility] [address] Performing Lab: [facility] [address] PHOSPHORUS 2.8 mg/dL 2.3-4.3 Jul 04, 2024 07:16 AM [facility] CBC Specimen Type: BLOOD No comment entered. Ordering Provider: GABINO CAMERON Report Released Date/Time: Jul 03, 2024 06:31 PM Reporting Lab: [facility] [address] Performing Lab: [facility] [address] WBC 20.6 H 4.0-11.0 RBC 4.63 4.60-6.20 HGB 14.2 g/dL 13.5-17.9 HCT 43.4 41.0-54.0 MCV 93.7 fL 80.0-100.0 MCH 30.7 pg 27.0-33.0 MCHC 32.7 g/dL 32.0-37.5 PLT 329 150-400 MPV 10.4 fL 9.1-13.0 RDW 13.8 11.5-14.5 Jul 04, 2024 07:16 AM [facility] CBC & DIFF Specimen Type: BLOOD Comment: Manual Differential Performed Ordering Provider: GABINO CAMERON Report Released Date/Time: Jul 03, 2024 06:31 PM Reporting Lab: [facility] [address] Performing Lab: [facility] [address] WBC 20.6 H 4.0-11.0 RBC 4.63 4.60-6.20 [...] MORPHOLOGY PRESENT Jul 04, 2024 07:15 AM [facility] BNP Specimen Type: PLASMA No comment entered. Ordering Provider: GABINO CAMERON Report Released Date/Time: Jul 03, 2024 06:31 PM Reporting Lab: [facility] [address] Performing Lab: [facility] [address] BNP 292 pg/mL H <99 Jul 03, 2024 10:32 PM [facility] FINGERSTICK GLUCOSE Specimen Type: BLOOD Comment: Save Result Nurse Notified Ordering Provider: KATELYNN PERSON Report Released Date/Time: Jul 03, 2024 10:50 PM Reporting Lab: [facility] [address] Performing Lab: [facility] [address] FINGERSTICK GLUCOSE 126 mg/dL H 70-100 Jul 03, 2024 05:33 PM [facility] FINGERSTICK GLUCOSE Specimen Type: BLOOD Comment: Save Result Nurse Notified Ordering Provider: KATELYNN PERSON Report Released Date/Time: Jul 03, 2024 05:46 PM Reporting Lab: [facility] [address] Performing Lab: [facility] [address] FINGERSTICK GLUCOSE 141 mg/dL H 70-100 Jul 03, 2024 02:31 PM [facility] POC ABG/ELECTROLYTES Specimen Type: ARTERIAL BLOOD Comment: FIO2 = 97% Patient Temp: 36.0 C Sample Type = ARTERIAL Ordering Provider: MAZIN ARREDONDO Report Released Date/Time: Jul 03, 2024 01:48 PM Reporting Lab: [facility] [address] Performing Lab: [facility] [address] POC PH 7.387 7.35-7.45 POC PCO2 34.4 [...] H 80.0-105.0 Jul 03, 2024 01:05 PM [facility] POC ABG/ELECTROLYTES Specimen Type: ARTERIAL BLOOD Comment: FIO2 = 53% Patient Temp: 36.2 C Sample Type = ARTERIAL Ordering Provider: MAZIN ARREDONDO Report Released Date/Time: Jul 03, 2024 01:48 PM Reporting Lab: [facility] [address] Performing Lab: [facility] [address] POC PH 7.280 L 7.35-7.45 POC PCO2 [...] mm[Hg] 80.0-105.0 Jul 03, 2024 06:15 AM [facility] URINALYSIS Specimen Type: URINE No comment entered. Ordering Provider: MARYBETH POWELL Report Released Date/Time: Jun 12, 2024 04:01 PM Reporting Lab: [facility] [address] Performing Lab: [facility] [address] URINE COLOR YELLOW SPECIFIC GRAVITY 1.031 1.003-1.03 [...] 250 NEGATIVE Jul 03, 2024 06:13 AM [facility] CBC Specimen Type: BLOOD No comment entered. Ordering Provider: MARYBETH POWELL Report Released Date/Time: Jun 12, 2024 03:59 PM Reporting Lab: [facility] [address] Performing Lab: [facility] [address] WBC 15.8 H 4.0-11.0 RBC 5.11 4.60-6.20 HGB 16.1 g/dL 13.5-17.9 HCT 49.1 41.0-54.0 MCV 96.1 fL 80.0-100.0 MCH 31.5 pg 27.0-33.0 MCHC 32.8 g/dL 32.0-37.5 PLT 357 150-400 MPV 9.8 fL 9.1-13.0 RDW 13.7 11.5-14.5 Jun 24, 2024 09:50 AM [facility] BASIC METABOLIC PANEL+MG Specimen Type: PLASMA Comment: Specimen received in Lab at: 0948 Ordering Provider: JEVON ZAZUETA Report Released Date/Time: Jun 23, 2024 06:07 PM Reporting Lab: [facility] [address] Performing Lab: [facility] [address] CREATININE 0.8 mg/dL 0.7-1.2 UREA NITROGEN 13 mg/dL 8-26 GLUCOSE 135 mg/dL H 70-100 SODIUM 135 mmol/L L 136-145 POTASSIUM 3.6 mmol/L 3.5-5.1 CHLORIDE 103 mmol/L 98-107 CO2 24 mmol/L 22-29 CALCIUM 9.2 mg/dL 8.4-10.2 MAGNESIUM 1.9 mg/dL 1.6-2.6 ANION GAP 8 mmol/L 5-15 .CREAT EGFR(CKD-EPI) >90 >60 Jun 24, 2024 09:50 AM [facility] CBC Specimen Type: BLOOD Comment: Specimen received in Lab at: 0948 Ordering Provider: JEVON ZAZUETA Report Released Date/Time: Jun 23, 2024 06:07 PM Reporting Lab: [facility] [address] Performing Lab: [facility] [address] WBC 15.5 H 4.0-11.0 RBC 4.93 4.60-6.20 HGB 15.2 g/dL 13.5-17.9 HCT 46.5 41.0-54.0 MCV 94.3 fL 80.0-100.0 MCH 30.8 pg 27.0-33.0 MCHC 32.7 g/dL 32.0-37.5 PLT 223 150-400 MPV 11.4 fL 9.1-13.0 RDW 13.9 11.5-14.5 Jun 23, 2024 07:52 AM [facility] COMPREHENSIVE METABOLIC PANEL+MG Specimen Type: PLASMA No comment entered. Ordering Provider: JEVON ZAZUETA Report Released Date/Time: Jun 22, 2024 05:51 PM Reporting Lab: [facility] [address] Performing Lab: [facility] [address] CREATININE 0.7 mg/dL 0.7-1.2 UREA NITROGEN 16 [...] >90 >60 Jun 23, 2024 07:52 AM [facility] CBC & DIFF Specimen Type: BLOOD Comment: Automated Differential Performed Ordering Provider: JEVON ZAZUETA Report Released Date/Time: Jun 22, 2024 05:51 PM Reporting Lab: [facility] [address] Performing Lab: [facility] [address] WBC 14.9 H 4.0-11.0 RBC 5.09 4.60-6.20 [...] 0.1 0.0-0.1 Jun 22, 2024 06:10 PM [facility] CBC Specimen Type: BLOOD No comment entered. Ordering Provider: JEVON ZAZUETA Report Released Date/Time: Jun 22, 2024 05:51 PM Reporting Lab: [facility] [address] Performing Lab: [facility] [address] WBC 16.9 H 4.0-11.0 RBC 5.28 4.60-6.20 HGB 16.9 g/dL 13.5-17.9 HCT 50.4 41.0-54.0 MCV 95.5 fL 80.0-100.0 MCH 32.0 pg 27.0-33.0 MCHC 33.5 g/dL 32.0-37.5 PLT 223 150-400 MPV 10.9 fL 9.1-13.0 RDW 14.0 11.5-14.5 Jun 22, 2024 06:10 PM [facility] COMPREHENSIVE METABOLIC PANEL+MG Specimen Type: PLASMA No comment entered. Ordering Provider: JEVON ZAZUETA Report Released Date/Time: Jun 22, 2024 05:51 PM Reporting Lab: [facility] [address] Performing Lab: [facility] [address] CREATININE 0.7 mg/dL 0.7-1.2 UREA NITROGEN 17 [...] >90 >60 Jun 21, 2024 06:48 PM [facility] URINALYSIS Specimen Type: URINE No comment entered. Ordering Provider: DELIA MARTINEZ Report Released Date/Time: Jun 21, 2024 05:45 PM Reporting Lab: [facility] [address] Performing Lab: [facility] [address] URINE COLOR YELLOW SPECIFIC GRAVITY 1.041 H [...] 500 NEGATIVE Jun 21, 2024 05:34 PM [facility] POC CREATININE Specimen Type: BLOOD No comment entered. Ordering Provider: DELIA MARTINEZ Report Released Date/Time: Jun 21, 2024 06:07 PM Reporting Lab: [facility] [address] Performing Lab: [facility] [address] POC CREATININE 1.1 mg/dL 0.6-1.3 Jun 21, 2024 05:30 PM [facility] POC ABG/LACTATE Specimen Type: VENOUS BLOOD No comment entered. Ordering Provider: DELIA MARTINEZ Report Released Date/Time: Jun 21, 2024 06:07 PM Reporting Lab: [facility] [address] Performing Lab: [facility] [address] POC PH 7.470 H 7.31-7.41 POC PCO2 31.2 mm[Hg] L 41.00-51 .0 0 POC PO2 46 mm[Hg] H 35.0-40.0 POC TCO2 24 mmol/L 24.0-29.0 POC HCO3 22.7 mmol/L L 23.0-28.0 POC BE ECT -1 mmol/L POC SO2 85 H 70-75 POC LACTATE 1.85 mmol/L 0.90-1.70 Jun 21, 2024 05:24 PM [facility] PROTHROMBIN TIME/INR Specimen Type: PLASMA No comment entered. Ordering Provider: DELIA MARTINEZ Report Released Date/Time: Jun 21, 2024 05:30 PM Reporting Lab: [facility] [address] Performing Lab: [facility] [address] .INR 1.2 H 0.8-1.1 .PT 13.9 s H 9.4-12.5 Jun 21, 2024 05:24 PM [facility] LIPASE Specimen Type: PLASMA No comment entered. Ordering Provider: DELIA MARTINEZ Report Released Date/Time: Jun 21, 2024 05:30 PM Reporting Lab: [facility] [address] Performing Lab: [facility] [address] LIPASE 32 U/L <60 Jun 21, 2024 05:24 PM [facility] EXTRA GOLD GEL TUBE Specimen Type: SERUM No comment entered. Ordering Provider: DELIA MARTINEZ Report Released Date/Time: Jun 21, 2024 05:41 PM Reporting Lab: [facility] [address] Performing Lab: [facility] [address] EXTRA GOLD GEL TUBE RECEIVED Jun 21, 2024 05:24 PM [facility] COMPREHENSIVE METABOLIC PANEL+MG Specimen Type: PLASMA No comment entered. Ordering Provider: DELIA MARTINEZ Report Released Date/Time: Jun 21, 2024 05:30 PM Reporting Lab: [facility] [address] Performing Lab: [facility] [address] CREATININE 0.9 mg/dL 0.7-1.2 UREA NITROGEN 29 [...] mg/dL <0.5 Jun 21, 2024 05:24 PM [facility] CBC & DIFF Specimen Type: BLOOD Comment: Manual Differential Performed Ordering Provider: DELIA MARTINEZ Report Released Date/Time: Jun 21, 2024 05:30 PM Reporting Lab: [facility] [address] Performing Lab: [facility] [address] WBC 21.3 H 4.0-11.0 RBC 5.48 4.60-6.20 [...] MORPHOLOGY PRESENT Jun 08, 2024 10:59 AM [facility] PROTHROMBIN TIME/INR Specimen Type: PLASMA No comment entered. Ordering Provider: MARYBETH POWELL Report Released Date/Time: May 28, 2024 09:02 AM Reporting Lab: [facility] [id number] Performing Lab: [facility] [address] .INR 1.0 0.8-1.1 .PT 11.8 s 9.4-12.5 Jun 08, 2024 10:59 AM [facility] CBC Specimen Type: BLOOD No comment entered. Ordering Provider: MARYBETH POWELL Report Released Date/Time: May 28, 2024 09:02 AM Reporting Lab: [facility] [id number] Performing Lab: [facility] [address] WBC 16.1 H 4.0-11.0 RBC 5.02 4.60-6.20 HGB 16.0 g/dL 13.5-17.9 HCT 47.1 41.0-54.0 MCV 93.8 fL 80.0-100.0 MCH 31.9 pg 27.0-33.0 MCHC 34.0 g/dL 32.0-37.5 PLT 228 150-400 MPV 10.3 fL 9.1-13.0 RDW 14.6 H 11.5-14.5 Jun 08, 2024 10:59 AM [facility] HEMOGLOBIN A1C Specimen Type: BLOOD [...] AM Reporting Lab: [facility] [id number] Performing Lab: [facility] [id number] HEMOGLOBIN A1C 4.9 4.0-6.0 Jun 08, 2024 10:59 AM [facility] BASIC METABOLIC PANEL+MG Specimen Type: PLASMA No comment entered. Ordering Provider: MARYBETH POWELL Report Released Date/Time: May 28, 2024 09:02 AM Reporting Lab: [facility] [phone] Performing Lab: [facility] [phone] CREATININE 0.9 mg/dL 0.7-1.2 UREA NITROGEN 15 [...] Source Jun 21, 2024 11:54 PM 7 [facility] Jun 21, 2024 11:29 PM 7 [facility] Jun 21, 2024 11:02 PM 97.9 75 130/75 17 95 7 [facility] Jun 21, 2024 04:51 PM 98.2 100 162/97 16 97 10 [facility] Social History: Smoking Status (Most current) [...] 15, 2024 08:30 AM VA-TOBACCO FORMER USER [facility] Tobacco Use History This section includes a history of the smoking, or tobacco-related health factors, that were collected on or before the date of the Encounter. The data comes from the [place] facility where the Encounter took place. Date/Time Smoking Status/Tobacco Use Comment F [facility] May 15, 2024 08:30 AM VA-TOBACCO QUIT 15 YRS OR MORE [facility] May 06, 2023 11:30 AM VA-TOBACCO FORMER USER [facility] May 06, 2023 11:30 AM VA-TOBACCO QUIT 15 YRS OR MORE [facility] Jun 04, 2022 09:00 AM VA-TOBACCO FORMER USER [facility] Jun 04, 2022 09:00 AM VA-TOBACCO QUIT 15 YRS OR MORE [facility] Jul 10, 2021 08:00 AM VA-TOBACCO FORMER USER [facility] Jul 10, 2021 08:00 AM VA-TOBACCO QUIT 5 TO < 15 YRS [facility] May 23, 2020 08:30 AM VA-TOBACCO FORMER USER [facility] May 23, 2020 08:30 AM VA-TOBACCO QUIT 5 TO < 15 YRS [facility] Mar 20, 2019 04:03 PM VA-TOBACCO FORMER USER [facility] Mar 20, 2019 04:03 PM VA-TOBACCO QUIT 5 TO < 15 YRS [facility] Mar 21, 2018 08:13 AM FORMER TOBACCO USER 7Y OR GREATE R [facility] Feb 24, 2017 09:24 AM FORMER TOBACCO USER 7Y OR GREATE R [facility] January 07, 2016 08:01 AM FORMER TOBACCO USE >1Y <7Y [facility] Feb 03, 2015 07:58 AM FORMER TOBACCO USE <1Y [facility] Feb 26, 2014 08:41 AM CURRENT TOBACCO USER [facility] May 13, 2011 01:45 PM CURRENT TOBACCO USER [facility] Advance Directives: All historical and [...] WARNING [facility] Radiology Reports: +/- 30 days of [...] 2 VIEWS PA AND LAT: FLACA WEAVER [id number] -1950 M Exm Date: JUL 08, 2024@10:09 Req Phys: KATELYNN PERSON Pat Loc: 2KG/07-08-2024@11:49 Img Loc: MAIN X-RAY Service: [place] [address] (Case [id number] COMPLETE) CHEST 2 VIEWS PA AND LAT (RAD Detailed) CPT:00726 Reason for Study: Uptrending WBC, POD 5 Clinical History: Richards IS NOT under investigation for COVID-19 or is COVID-19 negative POD 5, work up for uptrending wbc Responsible provider name and phone number to notify for critical findings if other than user placing the order and pager listed below: User placing orders pager: Katelynn Person LAST CREATININE 0.9 (07/07/24) Report Status: Verified Date Reported: JUL 08, 2024 Date Verified: JUL 08, 2024 Creative Technologist E-Sig: Report: CHEST 2 VIEWS PA AND LAT HISTORY: Uptrending WBC, POD 5 COMPARISON: CT chest 11/12/2022 TECHNIQUE: Frontal and lateral views of the chest, submitted to the [place] National Teleradiology Program (NTP) for interpretation. FINDINGS: Lungs: Clear. No focal consolidation. No pulmonary edema. Pleura: No pleural effusion or pneumothorax. Mediastinum: Normal size and contour. Bones: Unremarkable. Impression: No acute cardiopulmonary disease. READING PHYSICIAN: Sarbjit Vaughn M.D. -[phone] 07/08/2024 12:46 EST [facility] National Teleradiology Program [phone] (For Medical Practitioner Use Only) Attention Patients / Veterans: If you have questions or concerns about these test results, please contact your ordering provider or primary care team. Primary Interpreting Staff: RADIOLOGY,OUTSIDE SERVICE, Staff Physician / RADIOLOGY,OUTSIDE SERVICE [facility] Jul 08, 2024 10:[address] (AP) ABDOMEN/PELVIS W CONTRAST: FLACA WEAVER [id number] -1950 M Exm Date: JUL 08, 2024@10:00 Req Phys: KATELYNN PERSON Pat Loc: 2KG/07-08-2024@12:07 Img Loc: CT IMAGING Service: [place] [address] (Case 22 COMPLETE) CT (AP) ABDOMEN/PELVIS W CONTRAST(CT Detailed) CPT:94770 Contrast Media : Non-ionic Iodinated Reason for [...] PLASMA .CREAT EGFR(CKD-E >90 Ref: >=60 Allergies: (Allred only) TERAZOSIN (Mar 13, 2015) Report Status: Verified Date Reported: JUL 08, 2024 Date Verified: JUL 08, 2024 Creative Technologist E-Sig: Report: CT (AP) ABDOMEN/PELVIS W CONTRAST HISTORY: POD 5, Uptrending WBC - Concern for Abscess/other infection COMPARISON: June 21, 2024 TECHNIQUE: CT abdomen and pelvis was performed after intravenous contrast. Axial, sagittal and coronal reformatted images. The study was performed at the local OR facility and images were sent to the [place] National Teleradiology Program (NTP) for interpretation. Number [...] as noted above READING PHYSICIAN: Celestino Blanc -[phone] 07/08/2024 13:04 [facility] National Teleradiology Program [phone] (For Medical Practitioner Use Only) Attention Patients / Veterans: If you have questions or concerns about these test results, please contact your ordering provider or primary care team. Primary Interpreting Staff: RADIOLOGY,OUTSIDE SERVICE, Staff Physician / RADIOLOGY,OUTSIDE SERVICE [facility] Jun 22, 2024 11:49 AM ABSCESS DRAIN PLACEMENT PERITONEAL (P): FLACA WEAVER [id number] -1950 M Exm Date: JUN 22, 2024@11:49 Req Phys: ANGELA HOLDEN Loc: [facility]06-22-2024@17:14 Img Loc: INTERVENTIONAL RADIOLOGY Service: [place] [address] (Case [id number] COMPLETE) IR PERITONEAL/RETROPERITONEAL PER(ANI Detailed) CPT:63349 Reason for Study: diverticulitis with abscess (Case 3570 COMPLETE) IR MOD SEDATION 10-22 MIN (ANI Detailed) CPT:00305 Clinical History: Richards IS NOT under investigation for COVID-19 or is COVID-19 negative 73 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 please place abscess drain. Contact number for responsible provider who can be reached for any questions or notifications of critical findings: [phone] n/a LAST CREATININE 0.9 (06/21/24) Report Status: Verified Date Reported: JUN 22, 2024 Date Verified: JUN 22, 2024 Creative Technologist E-Sig:/ES/LISA PENDLETON MD Report: PROCEDURES: Placement of [...] obtained. A pre-procedural Time-Out was performed per [facility] policy. The patient was placed in the supine position on the CT table. Preprocedural scan performed. The suprapubic region/lower abdominal wall was sterilely prepped and draped in the usual fashion.1% lidocaine without epinephrine was used for local anesthesia. Using real-time CT fluoroscopy, a 5 Jordanian ByteLightesis catheter was advanced into the collection in [...] Primary Interpreting Staff: LISA PENDLETON MD, RADIOLOGIST (Creative Technologist) /JRT LISA PENDLETON [facility] Jun 22, 2024 11:[address] NEEDLE PLACEMENT (P): FLACA WEAVER [id number] -1950 M Exm Date: JUN 22, 2024@11:48 Req Phys: ANGELA HOLDEN [facility] Loc: [facility]/06-22-2024@17:14 Img Loc: CT IMAGING Service: [place] [address] (Case [id number] COMPLETE) CT SCAN FOR NEEDLE PLACEMENT (CT Detailed) CPT:13382 Reason for Study: l pelvic abscess drain Clinical History: Report Status: Verified Date Reported: JUN 22, 2024 Date Verified: JUN 22, 2024 Creative Technologist E-Sig:/ES/LISA PENDLETON MD Report: PROCEDURES: Placement of [...] obtained. A pre-procedural Time-Out was performed per [facility] policy. The patient was placed in the supine position on the CT table. Preprocedural scan performed. The suprapubic region/lower abdominal wall was sterilely prepped and draped in the usual fashion.1% lidocaine without epinephrine was used for local anesthesia. Using real-time CT fluoroscopy, a 5 Jordanian CrowdScannerr catheter was advanced into the collection in [...] Primary Interpreting Staff: LISA PENDLETON MD, RADIOLOGIST (Creative Technologist) /JRT LISA PENDLETON [facility] Jun 21, 2024 06:[address] (AP) ABDOMEN/PELVIS (P): FLACA WEAVER [id number] -1950 M Exm Date: JUN 21, 2024@18:09 Req Phys: DELIA MARTINEZ Loc: [facility] EMERGENCY DEPT WALK-IN (Re Img Loc: CT IMAGING Service: [place] [address] (Case [id number] COMPLETE) CT (AP) ABDOMEN/PELVIS W CONTRAST(CT Detailed) CPT:78439 Contrast Media : Non-ionic Iodinated Reason for [...] PLASMA .CREAT EGFR(CKD-E >90 Ref: >=60 Allergies: (Allred only) TERAZOSIN (Mar 13, 2015) Defer to [...] 21, 2024 Date Verified: JUN 21, 2024 Creative Technologist E-Sig:/ALEXI/CARLOS A CUNNINGHAM DO Report: EXAMINATION: CT [...] readback verification. Primary Interpreting Staff: CARLOS A UCNNINGHAM DO, RADIOLOGIST (Creative Technologist) /CARLOS A ROWELL [facility] May 25, 2024 09:00 AM IR FISTULOGRAM OR SINOGRAM : FLAAC WEAVER [id number] -1950 M Exm Date: MAY 25, 2024@09:00 Req Phys: AMINTA PRUITT Loc: [facility] XRAY INTERVENTIONAL RADIO Img Loc: INTERVENTIONAL RADIOLOGY Service: [place] [address] (Case [id number] COMPLETE) IR FISTULOGRAM OR SINOGRAM (ANI Detailed) CPT:93256 Contrast Media : unspecified contrast media Reason for Study: s/p drain placement for diverticular abscess- assess for drain Clinical History: Richards IS NOT under investigation for COVID-19 or [...] 25, 2024 Date Verified: MAY 25, 2024 Creative Technologist E-Sig:/ES/DAVID BURNS MD Report: PROCEDURES 05/25/2024 9:48 [...] Primary Interpreting Staff: DAVID BURNS MD, RADIOLOGIST (Creative Technologist) /CSS DAVID BURNS [facility] May 25, 2024 08:[address] (AP) ABDOMEN/PELVIS (P): FLACA WEAVER [id number] -1950 M Exm Date: MAY 25, 2024@08:23 Req Phys: DAVID BURNS Pat Loc: [facility] XRAY INTERVENTIONAL RADIO Img Loc: CT IMAGING Service: [place] [address] (Case [id number] COMPLETE) CT (AP) ABDOMEN/PELVIS W/O CONTRA(CT Detailed) CPT:80671 Reason for Study: assess abscess and possible [...] PLASMA .CREAT EGFR(CKD-E >90 Ref: >=60 Allergies: (Allred only) TERAZOSIN (Mar 13, 2015) Report Status: Verified Date Reported: MAY 25, 2024 Date Verified: MAY 25, 2024 Creative Technologist E-Sig:/ES/JESSENIA GOODMAN MD Report: EXAM: CT abdomen and pelvis without intravenous contrast. 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 TECHNIQUE: Helical acquisition of image data was performed for the abdomen and pelvis without intravenous contrast. Dose: 512.57 mGy*cm COMPARISON: CT abdomen pelvis with contrast 05/11/[address] abdomen pelvis 04/23/2024.; CT abdomen pelvis 05/05/2020 FINDINGS: AUDIO/VIDEO ENGINEER: Pigtail catheter projecting over the left [...] Primary Interpreting Staff: JESSENIA GOODMAN MD, RADIOLOGIST (Creative Technologist) Primary Interpreting Resident: YOHANNES MELO DO, LAW FIRM PARTNER /JESSENIA LOUIE [facility] Pathology Reports: +/- 30 days [...] COSIGNER: URGENCY: STATUS: COMPLETED $APHDR Reporting Lab: [facility] [CLIA# [id number]] [place] [address] - - - - - - - [...] - - - PATHOLOGY REPORT Accession No. [id number] - - - - - - - [...] - PATHOLOGY REPORT Accession No. [id number] - - - - - - - [...] Second circumferential surgical margin, en face; E-F: Weigher Operator diverticula; G: Weigher Operator section of mesentery; H: Random public service representative section of additional adipose tissue [...] colonic tissue ring, bisected transversely. [facility]: Microscopic examination performed. DIAGNOSIS: 1. Colon, sigmoid, sigmoidectomy-- - Diverticulosis with perforation and focal abscess formation 2. Colon, anastomotic rings, excision-- - Viable colonic mucosa without diagnostic abnormality /es/ EDUARDO PALOMARES MD STAFF PATHOLOGIST Signed Jul 06, 2024@10:40 Performing Laboratory: Surgical Pathology Report Performed By: [facility] [CLIA# [id number]] [place] [address] $FTR - - - - - - - - - - - - - - - - - - - - - - - - - - - - - - - - - - - - - - - - (End of report) EDUARDO PALOMARES MD [facility] Date Jul 06, 2024 - - - - - - - - - - - - - - - - - - - - - - - - - - - - - - - - - - - - - - - - FLACA WEAVER STANDARD FORM 515 ID:[id number] SEX:M :1950 AGE: 73 LOC:14302 ADM:Jun DX:DIVERTICULITIS PCP: Jatinder Cabrera /alexi/ EDUARDO PALOMARES MD STAFF PATHOLOGIST Signed: 07/06/2024 10:40 EDUARDO PALOMARES [facility] Jun 22, 2024 01:15 PM LR MICROBIOLOGY RE PORT: Reporting Lab: [facility] [CLIA# [id number]] [place] [address] Accession [UID]: [id number] [[id number]] Received: Jun 22, 2024@13:38 Collection sample: FLUID Collection date: Jun 22, 2024 13:15 Provider: ANGELA HOLDEN Comment on specimen: LLQ ABSCESS, RECEIVED IN ANAEROBIC TRANSPORT VIAL Test(s) ordered: GRAM STAIN.................... completed: Jun 22, 2024 15:03 CULTURE & SUSCEPTIBILITY...... completed: Jun 25, 2024 * BACTERIOLOGY FINAL REPORT => Jun 25, 2024 10:56 TECH CODE: [id number] GRAM STAIN: DIRECT SMEAR of specimen before [...] -=--=--=--=--=--=--=-- Performing Laboratory: Bacteriology Report Performed By: [facility] [CLIA# [id number]] [place] [address] [facility] Jun 22, 2024 01:15 PM LR MICROBIOLOGY RE PORT: Reporting Lab: [facility] [CLIA# [id number]] [place] [address] Accession [UID]: [id number] [[id number]] Received: Jun 22, 2024@13:38 Collection sample: FLUID Collection date: Jun 22, 2024 13:15 Provider: ANGELA HOLDEN Comment on specimen: LLQ ABSCESS, RECEIVED IN ANAEROBIC TRANSPORT VIAL Test(s) ordered: ANAEROBIC CULTURE............. completed: Jun 28, 2024 * BACTERIOLOGY FINAL REPORT => Jun 28, 2024 10:08 TECH CODE: [id number] CULTURE RESULTS: HEAVY GROWTH MIXED ANAEROBES Comment: including the followin+ Bacteroides fragilis 4+ Bacteroides vulgatus 4+ Clostridium innocuum Beta-lactamase negative 4+ Bacteroides caccae 4+ Parvimonas micra 4+ Bacteroides uniformis 4+ Gemella morbillorum 4+ anaerobic small, Gram Positive Rods 4+ Bacteroides thetaiotaomicron Standard workup is now complete. Bacteriology Remark(s): THIS REPORT IS FINAL =--=--=--=--=--=--=--=--=--= --=--=--=--=--=--=--=--=--=- -=--=--=--=--=--=--=-- Performing Laboratory: Bacteriology Report Performed By: [facility] [CLIA# [id number]] [place] [address] [facility] Jun 21, 2024 06:12 PM LR MICROBIOLOGY RE PORT: Reporting Lab: [facility] [CLIA# [id number]] [place] [address] Accession [UID]: [id number] [[id number]] Received: Jun 21, 2024@18:12 Collection sample: BLOOD [...] -=--=--=--=--=--=--=-- Performing Laboratory: Bacteriology Report Performed By: [facility] [CLIA# [id number]] [place] [address] [facility] Jun 21, 2024 06:11 PM LR MICROBIOLOGY RE PORT: Reporting Lab: [facility] [CLIA# [id number]] [place] [address] Accession [UID]: [id number] [[id number]] Received: Jun 21, 2024@18:11 Collection sample: BLOOD [...] -=--=--=--=--=--=--=-- Performing Laboratory: Bacteriology Report Performed By: [facility] [CLIA# [id number]] [place] [address] [facility] Jun 08, 2024 11:00 AM LR MICROBIOLOGY RE PORT: Reporting Lab: [facility] [CLIA# [id number]] [place] [address] Accession [UID]: [id number] [[id number]] Received: Jun 08, 2024@11:00 Collection sample: URINE Collection date: Jun 08, 2024 11:00 Provider: MARYBETH POWELL Comment on specimen: urine Test(s) ordered: CULTURE & SUSCEPTIBILITY...... completed: Jun 09, 2024 * BACTERIOLOGY FINAL REPORT => Jun 09, 2024 19:12 TECH CODE: [id number] CULTURE RESULTS: ESCHERICHIA COLI - Quantity: >100,000 [...] -=--=--=--=--=--=--=-- Performing Laboratory: Bacteriology Report Performed By: [facility] [CLIA# [id number]] [place] [address] [facility] Encounter Notes: All associated encounter notes This section contains the clinical notes associated to the Encounter. Date/Time Encounter Note(s) Provider Source Jun 21, 2024 10:52 PM CRITICAL CARE UNIT NOTE: LOCAL TITLE: ICCA INPATIENT FLOWSHEET STANDARD TITLE: CRITICAL CARE UNIT NOTE DATE OF NOTE: JUN 21, 2024@22:52 ENTRY DATE: JUN 22, 2024@14:39:42 AUTHOR: PETERSONYogiPlay EXP COSIGNER: URGENCY: STATUS: COMPLETED This is a place aranda only. Please see [employer] to view document. /es/ [employer] SYSTEM ICU DOCUMENT IMPORT Signed: 06/22/2024 14:39 SYSTEMYogiPlay [facility] Jun 21, 2024 10:52 PM CRITICAL CARE UNIT NOTE: LOCAL TITLE: ICCA RESPIRATORY THERAPY FLOWSHEET STANDARD TITLE: CRITICAL CARE UNIT NOTE DATE OF NOTE: JUN 21, 2024@22:52 ENTRY DATE: JUN 22, 2024@15:09:15 AUTHOR: PETERSONYogiPlay EXP COSIGNER: URGENCY: STATUS: COMPLETED This is a place aranda only. Please see [employer] to view document. /es/ [employer] SYSTEM ICU DOCUMENT IMPORT Signed: 06/22/2024 15:09 SYSTEM,[facility]
--- OUTSIDE RECORDS SUMMARY | 2024-07-16 07:32 | XMS_ITS | Encounter Summary ---
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 Date/Time Encounter Type Encounter Description Reason Provider Source Jun 22, 2024 05:53 PM IP/OBS CNSLTJ NEW/EST MOD 60 GENERAL INTERNAL MEDICINE ICD-10-CM I50.22 Chronic systolic (congestive) heart failure JEVON ZAZUETA [facility] Encounter Template Text not used by [place] Assessments - Encounter Diagnoses This section includes the primary and secondary diagnoses documented for the Encounter. 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 JEVON ZAZUETA [facility] Jun 22, 2024 06:36 PM SECONDARY Elevated white blood cell count, unspecified JEVON ZAZUETA [facility] Jun 22, 2024 06:36 PM SECONDARY Essential (primary) hypertension JEVON ZAZUETA [facility] Jun 22, 2024 06:36 PM SECONDARY Impaired fasting glucose JEVON ZAZUETA [facility] Jun 22, 2024 06:36 PM SECONDARY Other impulse disorders JEVON ZAZUETA [facility] Plan of Treatment: Future Appointments (+ 6 months) and Future Tests (+/- 45 days) The Plan of Treatment section includes future care activities for the patient from [facility] [place] [facility] This section includes future appointments and future orders which are active, pending or scheduled. Future Appointments This section includes appointments that were scheduled to occur 6 months from the date of the Encounter, up to a maximum of 20 appointments. The data comes from all [facility]. Appointment Date/Time Appointment Type Appointme nt Facility Name Jun 27, 2024 07:00 AM AMBULATORY - NONE [facility] Jun 27, 2024 07:30 AM AMBULATORY - MEDICINE [facility] Jun 27, 2024 08:00 AM AMBULATORY - MEDICINE [facility] Jul 03, 2024 05:55 AM AMBULATORY - NONE [facility] Jul 13, 2024 08:15 AM AMBULATORY [facility] Active, Pending, and Scheduled Orders This section includes a listing of several types of active, pending, and scheduled orders, including clinic medications orders, diagnostic test orders, procedure orders and consult orders; where the start date of the order is 45 days before the date of the Encounter or 45 days after the date of theEncounter. The data comes from all [facility]. Test Date/Time Test Type Test Details Facility Name May 28, 2024 12:00 AM Laboratory - Blood Bank Order TYPE & SCREEN - LAB BLOOD SP [facility] Jun 08, 2024 09:57 AM Laboratory - Chemi stry Order URINALYSIS URINE ONCE [facility] Jun 12, 2024 12:00 AM Laboratory - Chemi stry Order BNP PLASMA SP [facility] Jun 21, 2024 05:45 PM Laboratory - Blood Bank Order TYPE & SCREEN - LAB BLOOD [facility] Jul 03, 2024 12:00 AM Laboratory - Blood Bank Order TYPE & SCREEN - LAB BLOOD WC [facility] Jul 16, 2024 12:00 AM Laboratory - Chemi stry Order CBC BLOOD SP ONCE [facility] Jul 17, 2024 12:00 AM Laboratory - Chemi stry Order BASIC METABOLIC PANEL+MG PLASMA SP ONCE [facility] Lab Results: +/- [...] Range Comment Jul 10, 2024 07:16 AM [facility] PHOSPHORUS Specimen Type: PLASMA No comment entered. Ordering Provider: JUANCARLOS ECHOLS Report Released Date/Time: Jul 09, 2024 12:23 PM Reporting Lab: [facility] [phone] Performing Lab: [facility] [address] PHOSPHORUS 3.0 mg/dL 2.3-4.3 Jul 10, 2024 07:16 AM [facility] BASIC METABOLIC PANEL+MG Specimen Type: PLASMA No comment entered. Ordering Provider: JUANCARLOS ECHOLS Report Released Date/Time: Jul 09, 2024 12:23 PM Reporting Lab: [facility] [address] Performing Lab: [facility] [address] CREATININE 0.7 mg/dL 0.7-1.2 UREA NITROGEN 27 mg/dL H 8-26 GLUCOSE 104 mg/dL H 70-100 SODIUM 133 mmol/L L 136-145 POTASSIUM 4.3 mmol/L 3.5-5.1 CHLORIDE 102 mmol/L 98-107 CO2 19 mmol/L L 22-29 CALCIUM 10.1 mg/dL 8.4-10.2 MAGNESIUM 1.9 mg/dL 1.6-2.6 ANION GAP 12 mmol/L 5-15 .CREAT EGFR(CKD-EPI) >90 >60 Jul 10, 2024 07:15 AM [facility] CBC Specimen Type: BLOOD No comment entered. Ordering Provider: JUANCARLOS ECHOLS Report Released Date/Time: Jul 09, 2024 12:23 PM Reporting Lab: [facility] [address] Performing Lab: [facility] [address] WBC 18.8 H 4.0-11.0 RBC 5.08 4.60-6.20 HGB 15.9 g/dL 13.5-17.9 HCT 46.8 41.0-54.0 MCV 92.1 fL 80.0-100.0 MCH 31.3 pg 27.0-33.0 MCHC 34.0 g/dL 32.0-37.5 PLT 479 H 150-400 MPV 10.2 fL 9.1-13.0 RDW 13.7 11.5-14.5 Jul 09, 2024 07:08 AM [facility] CBC Specimen Type: BLOOD No comment entered. Ordering Provider: QUYNH WEISS Report Released Date/Time: Jul 08, 2024 06:18 PM Reporting Lab: [facility] [address] Performing Lab: [facility] [address] WBC 15.3 H 4.0-11.0 RBC 4.91 4.60-6.20 HGB 15.1 g/dL 13.5-17.9 HCT 45.7 41.0-54.0 MCV 93.1 fL 80.0-100.0 MCH 30.8 pg 27.0-33.0 MCHC 33.0 g/dL 32.0-37.5 PLT 443 H 150-400 MPV 10.0 fL 9.1-13.0 RDW 13.5 11.5-14.5 Jul 08, 2024 10:50 AM [facility] URINALYSIS Specimen Type: URINE No comment entered. Ordering Provider: KATELYNN PERSON Report Released Date/Time: Jul 08, 2024 08:41 AM Reporting Lab: [facility] [address] Performing Lab: [facility] [address] URINE COLOR YELLOW SPECIFIC GRAVITY >1.050 H [...] NEGATIVE NEGATIVE Jul 08, 2024 09:54 AM [facility] CBC Specimen Type: BLOOD Comment: Specimen received in Lab at: 0952 Ordering Provider: JUANCARLOS ECHOLS S Report Released Date/Time: Jul 07, 2024 04:49 PM Reporting Lab: [facility] [address] Performing Lab: [facility] [address] WBC 17.5 H 4.0-11.0 RBC 4.88 4.60-6.20 HGB 14.9 g/dL 13.5-17.9 HCT 45.7 41.0-54.0 MCV 93.6 fL 80.0-100.0 MCH 30.5 pg 27.0-33.0 MCHC 32.6 g/dL 32.0-37.5 PLT 472 H 150-400 MPV 10.2 fL 9.1-13.0 RDW 13.7 11.5-14.5 Jul 08, 2024 09:54 AM [facility] PHOSPHORUS Specimen Type: PLASMA Comment: Specimen received in Lab at: 09 Ordering Provider: JUANCARLOS ECHOLS Report Released Date/Time: Jul 07, 2024 04:49 PM Reporting Lab: [facility] [address] Performing Lab: [facility] [address] PHOSPHORUS 2.6 mg/dL 2.3-4.3 Jul 08, 2024 09:54 AM [facility] BASIC METABOLIC PANEL+MG Specimen Type: PLASMA Comment: Specimen received in Lab at: 0952 Ordering Provider: JUANCARLOS ECHOLS S Report Released Date/Time: Jul 07, 2024 04:49 PM Reporting Lab: [facility] [address] Performing Lab: [facility] [address] CREATININE 0.9 mg/dL 0.7-1.2 UREA NITROGEN 26 mg/dL 8-26 GLUCOSE 128 mg/dL H 70-100 SODIUM 134 mmol/L L 136-145 POTASSIUM 3.4 mmol/L L 3.5-5.1 CHLORIDE 100 mmol/L 98-107 CO2 24 mmol/L 22-29 CALCIUM 9.8 mg/dL 8.4-10.2 MAGNESIUM 1.8 mg/dL 1.6-2.6 ANION GAP 10 mmol/L 5-15 .CREAT EGFR(CKD-EPI) >90 >60 Jul 07, 2024 02:00 PM [facility] C DIFF PANEL Specimen Type: FECES No comment entered. Ordering Provider: JEVON ZAZUETA Report Released Date/Time: Jul 07, 2024 12:26 PM Reporting Lab: [facility] [address] Performing Lab: [facility] [address] C DIFF TOX B GENE PCR NEGATIVE Negative Jul 07, 2024 07:41 AM [facility] PHOSPHORUS Specimen Type: PLASMA No comment entered. Ordering Provider: JEVON ZAZUETA Report Released Date/Time: Jul 06, 2024 03:44 PM Reporting Lab: [facility] [address] Performing Lab: [facility] [address] PHOSPHORUS 3.1 mg/dL 2.3-4.3 Jul 07, 2024 07:41 AM [facility] BASIC METABOLIC PANEL+MG Specimen Type: PLASMA No comment entered. Ordering Provider: JEVON ZAZUETA Report Released Date/Time: Jul 06, 2024 03:44 PM Reporting Lab: [facility] [address] Performing Lab: [facility] [address] CREATININE 0.9 mg/dL 0.7-1.2 UREA NITROGEN 20 mg/dL 8-26 GLUCOSE 157 mg/dL H 70-100 SODIUM 136 mmol/L 136-145 POTASSIUM 3.7 mmol/L 3.5-5.1 CHLORIDE 102 mmol/L 98-107 CO2 21 mmol/L L 22-29 CALCIUM 9.8 mg/dL 8.4-10.2 MAGNESIUM 1.9 mg/dL 1.6-2.6 ANION GAP 13 mmol/L 5-15 .CREAT EGFR(CKD-EPI) >90 >60 Jul 07, 2024 07:40 AM [facility] CBC Specimen Type: BLOOD No comment entered. Ordering Provider: JEVON ZAZUETA Report Released Date/Time: Jul 06, 2024 03:44 PM Reporting Lab: [facility] [address] Performing Lab: [facility] [address] WBC 21.2 H 4.0-11.0 RBC 5.09 4.60-6.20 HGB 15.9 g/dL 13.5-17.9 HCT 48.3 41.0-54.0 MCV 94.9 fL 80.0-100.0 MCH 31.2 pg 27.0-33.0 MCHC 32.9 g/dL 32.0-37.5 PLT 500 H 150-400 MPV 10.3 fL 9.1-13.0 RDW 13.6 11.5-14.5 Jul 06, 2024 07:21 AM [facility] CBC Specimen Type: BLOOD No comment entered. Ordering Provider: JEVON ZAZUETA Report Released Date/Time: Jul 05, 2024 01:22 PM Reporting Lab: [facility] [address] Performing Lab: [facility] [address] WBC 18.0 H 4.0-11.0 RBC 4.83 4.60-6.20 HGB 14.6 g/dL 13.5-17.9 HCT 45.5 41.0-54.0 MCV 94.2 fL 80.0-100.0 MCH 30.2 pg 27.0-33.0 MCHC 32.1 g/dL 32.0-37.5 PLT 368 150-400 MPV 10.4 fL 9.1-13.0 RDW 13.6 11.5-14.5 Jul 06, 2024 07:21 AM [facility] PHOSPHORUS Specimen Type: PLASMA No comment entered. Ordering Provider: JEVON ZAZUETA Report Released Date/Time: Jul 05, 2024 01:22 PM Reporting Lab: [facility] [address] Performing Lab: [facility] [address] PHOSPHORUS 3.6 mg/dL 2.3-4.3 Jul 06, 2024 07:21 AM [facility] BASIC METABOLIC PANEL+MG Specimen Type: PLASMA No comment entered. Ordering Provider: JEVON ZAZUETA Report Released Date/Time: Jul 05, 2024 01:22 PM Reporting Lab: [facility] [address] Performing Lab: [facility] [address] CREATININE 0.7 mg/dL 0.7-1.2 UREA NITROGEN 12 mg/dL 8-26 GLUCOSE 108 mg/dL H 70-100 SODIUM 138 mmol/L 136-145 POTASSIUM 3.4 mmol/L L 3.5-5.1 CHLORIDE 104 mmol/L 98-107 CO2 20 mmol/L L 22-29 CALCIUM 9.3 mg/dL 8.4-10.2 MAGNESIUM 1.9 mg/dL 1.6-2.6 ANION GAP 14 mmol/L 5-15 .CREAT EGFR(CKD-EPI) >90 >60 Jul 05, 2024 07:17 AM [facility] MAGNESIUM Specimen Type: PLASMA No comment entered. Ordering Provider: JUANCARLOS ECHOLS Report Released Date/Time: Jul 04, 2024 09:39 AM Reporting Lab: [facility] [address] Performing Lab: [facility] [address] MAGNESIUM 2.0 mg/dL 1.6-2.6 Jul 05, 2024 07:17 AM [facility] PHOSPHORUS Specimen Type: PLASMA No comment entered. Ordering Provider: JUANCARLOS ECHOLS Report Released Date/Time: Jul 04, 2024 09:39 AM Reporting Lab: [facility] [address] Performing Lab: [facility] [address] PHOSPHORUS 2.0 mg/dL L 2.3-4.3 Jul 05, 2024 07:17 AM [facility] BASIC METABOLIC PANEL+MG Specimen Type: PLASMA No comment entered. Ordering Provider: JUANCARLOS ECHOLS Report Released Date/Time: Jul 04, 2024 09:39 AM Reporting Lab: [facility] [address] Performing Lab: [facility] [address] CREATININE 0.7 mg/dL 0.7-1.2 UREA NITROGEN 12 mg/dL 8-26 GLUCOSE 84 mg/dL 70-100 SODIUM 135 mmol/L L 136-145 POTASSIUM 3.8 mmol/L 3.5-5.1 CHLORIDE 104 mmol/L 98-107 CO2 24 mmol/L 22-29 CALCIUM 9.3 mg/dL 8.4-10.2 MAGNESIUM 2.0 mg/dL 1.6-2.6 ANION GAP 7 mmol/L 5-15 .CREAT EGFR(CKD-EPI) >90 >60 Jul 05, 2024 07:16 AM [facility] CBC Specimen Type: BLOOD No comment entered. Ordering Provider: JUANCARLOS ECHOLS S Report Released Date/Time: Jul 04, 2024 09:39 AM Reporting Lab: [facility] [address] Performing Lab: [facility] [address] WBC 18.3 H 4.0-11.0 RBC 4.49 L 4.60-6.20 HGB 14.1 g/dL 13.5-17.9 HCT 43.4 41.0-54.0 MCV 96.7 fL 80.0-100.0 MCH 31.4 pg 27.0-33.0 MCHC 32.5 g/dL 32.0-37.5 PLT 317 150-400 MPV 10.0 fL 9.1-13.0 RDW 13.9 11.5-14.5 Jul 04, 2024 07:17 AM [facility] BASIC METABOLIC PANEL+MG Specimen Type: PLASMA No comment entered. Ordering Provider: GABINO CAMERON Report Released Date/Time: Jul 03, 2024 06:31 PM Reporting Lab: [facility] [address] Performing Lab: [facility] [address] CREATININE 0.7 mg/dL 0.7-1.2 UREA NITROGEN 16 mg/dL 8-26 GLUCOSE 129 mg/dL H 70-100 SODIUM 137 mmol/L 136-145 POTASSIUM 3.7 mmol/L 3.5-5.1 CHLORIDE 107 mmol/L 98-107 CO2 22 mmol/L 22-29 CALCIUM 9.0 mg/dL 8.4-10.2 MAGNESIUM 1.9 mg/dL 1.6-2.6 ANION GAP 8 mmol/L 5-15 .CREAT EGFR(CKD-EPI) >90 >60 Jul 04, 2024 07:17 AM [facility] PHOSPHORUS Specimen Type: PLASMA No comment entered. Ordering Provider: GABINO CAMERON Report Released Date/Time: Jul 03, 2024 06:31 PM Reporting Lab: [facility] [address] Performing Lab: [facility] [address] PHOSPHORUS 2.8 mg/dL 2.3-4.3 Jul 04, 2024 07:16 AM [facility] CBC Specimen Type: BLOOD No comment entered. Ordering Provider: GABINO CAMERON Report Released Date/Time: Jul 03, 2024 06:31 PM Reporting Lab: [facility] [address] Performing Lab: [facility] [address] WBC 20.6 H 4.0-11.0 RBC 4.63 4.60-6.20 HGB 14.2 g/dL 13.5-17.9 HCT 43.4 41.0-54.0 MCV 93.7 fL 80.0-100.0 MCH 30.7 pg 27.0-33.0 MCHC 32.7 g/dL 32.0-37.5 PLT 329 150-400 MPV 10.4 fL 9.1-13.0 RDW 13.8 11.5-14.5 Jul 04, 2024 07:16 AM [facility] CBC & DIFF Specimen Type: BLOOD Comment: Manual Differential Performed Ordering Provider: GABINO CAMERON Report Released Date/Time: Jul 03, 2024 06:31 PM Reporting Lab: [facility] [address] Performing Lab: [facility] [address] WBC 20.6 H 4.0-11.0 RBC 4.63 4.60-6.20 [...] MORPHOLOGY PRESENT Jul 04, 2024 07:15 AM [facility] BNP Specimen Type: PLASMA No comment entered. Ordering Provider: GABINO CAMERON Report Released Date/Time: Jul 03, 2024 06:31 PM Reporting Lab: [facility] [address] Performing Lab: [facility] [address] BNP 292 pg/mL H <99 Jul 03, 2024 10:32 PM [facility] FINGERSTICK GLUCOSE Specimen Type: BLOOD Comment: Save Result Nurse Notified Ordering Provider: KATELYNN PERSON Report Released Date/Time: Jul 03, 2024 10:50 PM Reporting Lab: [facility] [address] Performing Lab: [facility] [address] FINGERSTICK GLUCOSE 126 mg/dL H 70-100 Jul 03, 2024 05:33 PM [facility] FINGERSTICK GLUCOSE Specimen Type: BLOOD Comment: Save Result Nurse Notified Ordering Provider: KATELYNN PERSON Report Released Date/Time: Jul 03, 2024 05:46 PM Reporting Lab: [facility] [address] Performing Lab: [facility] [address] FINGERSTICK GLUCOSE 141 mg/dL H 70-100 Jul 03, 2024 02:31 PM [facility] POC ABG/ELECTROLYTES Specimen Type: ARTERIAL BLOOD Comment: FIO2 = 97% Patient Temp: 36.0 C Sample Type = ARTERIAL Ordering Provider: MAZIN ARREDONDO Report Released Date/Time: Jul 03, 2024 01:48 PM Reporting Lab: [facility] [address] Performing Lab: [facility] [address] POC PH 7.387 7.35-7.45 POC PCO2 34.4 [...] H 80.0-105.0 Jul 03, 2024 01:05 PM [facility] POC ABG/ELECTROLYTES Specimen Type: ARTERIAL BLOOD Comment: FIO2 = 53% Patient Temp: 36.2 C Sample Type = ARTERIAL Ordering Provider: MAZIN ARREDONDO Report Released Date/Time: Jul 03, 2024 01:48 PM Reporting Lab: [facility] [address] Performing Lab: [facility] [address] POC PH 7.280 L 7.35-7.45 POC PCO2 [...] mm[Hg] 80.0-105.0 Jul 03, 2024 06:15 AM [facility] URINALYSIS Specimen Type: URINE No comment entered. Ordering Provider: MARYBETH POWELL Report Released Date/Time: Jun 12, 2024 04:01 PM Reporting Lab: [facility] [address] Performing Lab: [facility] [address] URINE COLOR YELLOW SPECIFIC GRAVITY 1.031 1.003-1.03 [...] 250 NEGATIVE Jul 03, 2024 06:13 AM [facility] CBC Specimen Type: BLOOD No comment entered. Ordering Provider: MARYBETH POWELL Report Released Date/Time: Jun 12, 2024 03:59 PM Reporting Lab: [facility] [address] Performing Lab: [facility] [address] WBC 15.8 H 4.0-11.0 RBC 5.11 4.60-6.20 HGB 16.1 g/dL 13.5-17.9 HCT 49.1 41.0-54.0 MCV 96.1 fL 80.0-100.0 MCH 31.5 pg 27.0-33.0 MCHC 32.8 g/dL 32.0-37.5 PLT 357 150-400 MPV 9.8 fL 9.1-13.0 RDW 13.7 11.5-14.5 Jun 24, 2024 09:50 AM [facility] BASIC METABOLIC PANEL+MG Specimen Type: PLASMA Comment: Specimen received in Lab at: 0948 Ordering Provider: JEVON ZAZUETA Report Released Date/Time: Jun 23, 2024 06:07 PM Reporting Lab: [facility] [address] Performing Lab: [facility] [address] CREATININE 0.8 mg/dL 0.7-1.2 UREA NITROGEN 13 mg/dL 8-26 GLUCOSE 135 mg/dL H 70-100 SODIUM 135 mmol/L L 136-145 POTASSIUM 3.6 mmol/L 3.5-5.1 CHLORIDE 103 mmol/L 98-107 CO2 24 mmol/L 22-29 CALCIUM 9.2 mg/dL 8.4-10.2 MAGNESIUM 1.9 mg/dL 1.6-2.6 ANION GAP 8 mmol/L 5-15 .CREAT EGFR(CKD-EPI) >90 >60 Jun 24, 2024 09:50 AM [facility] CBC Specimen Type: BLOOD Comment: Specimen received in Lab at: 0948 Ordering Provider: JEVON ZAZUETA Report Released Date/Time: Jun 23, 2024 06:07 PM Reporting Lab: [facility] [address] Performing Lab: [facility] [address] WBC 15.5 H 4.0-11.0 RBC 4.93 4.60-6.20 HGB 15.2 g/dL 13.5-17.9 HCT 46.5 41.0-54.0 MCV 94.3 fL 80.0-100.0 MCH 30.8 pg 27.0-33.0 MCHC 32.7 g/dL 32.0-37.5 PLT 223 150-400 MPV 11.4 fL 9.1-13.0 RDW 13.9 11.5-14.5 Jun 23, 2024 07:52 AM [facility] COMPREHENSIVE METABOLIC PANEL+MG Specimen Type: PLASMA No comment entered. Ordering Provider: JEVON ZAZUETA Report Released Date/Time: Jun 22, 2024 05:51 PM Reporting Lab: [facility] [address] Performing Lab: [facility] [address] CREATININE 0.7 mg/dL 0.7-1.2 UREA NITROGEN 16 [...] >90 >60 Jun 23, 2024 07:52 AM [facility] CBC & DIFF Specimen Type: BLOOD Comment: Automated Differential Performed Ordering Provider: JEVON ZAZUETA Report Released Date/Time: Jun 22, 2024 05:51 PM Reporting Lab: [facility] [address] Performing Lab: [facility] [address] WBC 14.9 H 4.0-11.0 RBC 5.09 4.60-6.20 [...] 0.1 0.0-0.1 Jun 22, 2024 06:10 PM [facility] CBC Specimen Type: BLOOD No comment entered. Ordering Provider: JEVON ZAZUETA Report Released Date/Time: Jun 22, 2024 05:51 PM Reporting Lab: [facility] [address] Performing Lab: [facility] [address] WBC 16.9 H 4.0-11.0 RBC 5.28 4.60-6.20 HGB 16.9 g/dL 13.5-17.9 HCT 50.4 41.0-54.0 MCV 95.5 fL 80.0-100.0 MCH 32.0 pg 27.0-33.0 MCHC 33.5 g/dL 32.0-37.5 PLT 223 150-400 MPV 10.9 fL 9.1-13.0 RDW 14.0 11.5-14.5 Jun 22, 2024 06:10 PM [facility] COMPREHENSIVE METABOLIC PANEL+MG Specimen Type: PLASMA No comment entered. Ordering Provider: JEVON ZAZUETA Report Released Date/Time: Jun 22, 2024 05:51 PM Reporting Lab: [facility] [address] Performing Lab: [facility] [address] CREATININE 0.7 mg/dL 0.7-1.2 UREA NITROGEN 17 [...] >90 >60 Jun 21, 2024 06:48 PM [facility] URINALYSIS Specimen Type: URINE No comment entered. Ordering Provider: DELIA MARTINEZ Report Released Date/Time: Jun 21, 2024 05:45 PM Reporting Lab: [facility] [address] Performing Lab: [facility] [address] URINE COLOR YELLOW SPECIFIC GRAVITY 1.041 H [...] 500 NEGATIVE Jun 21, 2024 05:34 PM [facility] POC CREATININE Specimen Type: BLOOD No comment entered. Ordering Provider: DELIA MARTINEZ Report Released Date/Time: Jun 21, 2024 06:07 PM Reporting Lab: [facility] [address] Performing Lab: [facility] [address] POC CREATININE 1.1 mg/dL 0.6-1.3 Jun 21, 2024 05:30 PM [facility] POC ABG/LACTATE Specimen Type: VENOUS BLOOD No comment entered. Ordering Provider: DELIA MARTINEZ Report Released Date/Time: Jun 21, 2024 06:07 PM Reporting Lab: [facility] [address] Performing Lab: [facility] [address] POC PH 7.470 H 7.31-7.41 POC PCO2 31.2 mm[Hg] L 41.00-51 .0 0 POC PO2 46 mm[Hg] H 35.0-40.0 POC TCO2 24 mmol/L 24.0-29.0 POC HCO3 22.7 mmol/L L 23.0-28.0 POC BE ECT -1 mmol/L POC SO2 85 H 70-75 POC LACTATE 1.85 mmol/L 0.90-1.70 Jun 21, 2024 05:24 PM [facility] PROTHROMBIN TIME/INR Specimen Type: PLASMA No comment entered. Ordering Provider: DELIA MARTINEZ Report Released Date/Time: Jun 21, 2024 05:30 PM Reporting Lab: [facility] [address] Performing Lab: [facility] [address] .INR 1.2 H 0.8-1.1 .PT 13.9 s H 9.4-12.5 Jun 21, 2024 05:24 PM [facility] LIPASE Specimen Type: PLASMA No comment entered. Ordering Provider: DELIA MARTINEZ Report Released Date/Time: Jun 21, 2024 05:30 PM Reporting Lab: [facility] [address] Performing Lab: [facility] [address] LIPASE 32 U/L <60 Jun 21, 2024 05:24 PM [facility] EXTRA GOLD GEL TUBE Specimen Type: SERUM No comment entered. Ordering Provider: DELIA MARTINEZ Report Released Date/Time: Jun 21, 2024 05:41 PM Reporting Lab: [facility] [address] Performing Lab: [facility] [address] EXTRA GOLD GEL TUBE RECEIVED Jun 21, 2024 05:24 PM [facility] COMPREHENSIVE METABOLIC PANEL+MG Specimen Type: PLASMA No comment entered. Ordering Provider: DELIA MARTINEZ Report Released Date/Time: Jun 21, 2024 05:30 PM Reporting Lab: [facility] [address] Performing Lab: [facility] [address] CREATININE 0.9 mg/dL 0.7-1.2 UREA NITROGEN 29 [...] mg/dL <0.5 Jun 21, 2024 05:24 PM [facility] CBC & DIFF Specimen Type: BLOOD Comment: Manual Differential Performed Ordering Provider: DELIA MARTINEZ Report Released Date/Time: Jun 21, 2024 05:30 PM Reporting Lab: [facility] [address] Performing Lab: [facility] [address] WBC 21.3 H 4.0-11.0 RBC 5.48 4.60-6.20 [...] MORPHOLOGY PRESENT Jun 08, 2024 10:59 AM [facility] PROTHROMBIN TIME/INR Specimen Type: PLASMA No comment entered. Ordering Provider: MARYBETH POWELL Report Released Date/Time: May 28, 2024 09:02 AM Reporting Lab: [facility] [address] Performing Lab: [facility] [address] .INR 1.0 0.8-1.1 .PT 11.8 s 9.4-12.5 Jun 08, 2024 10:59 AM [facility] HEMOGLOBIN A1C Specimen Type: BLOOD [...] May 28, 2024 09:02 AM Reporting Lab: [facility] [address] Performing Lab: [facility] [address] HEMOGLOBIN A1C 4.9 4.0-6.0 Jun 08, 2024 10:59 AM [facility] CBC Specimen Type: BLOOD No comment entered. Ordering Provider: MARYBETH POWELL Report Released Date/Time: May 28, 2024 09:02 AM Reporting Lab: [facility] [address] Performing Lab: [place] [facility] [facility] [id number] WBC 16.1 H 4.0-11.0 RBC 5.02 4.60-6.20 HGB 16.0 g/dL 13.5-17.9 HCT 47.1 41.0-54.0 MCV 93.8 fL 80.0-100.0 MCH 31.9 pg 27.0-33.0 MCHC 34.0 g/dL 32.0-37.5 PLT 228 150-400 MPV 10.3 fL 9.1-13.0 RDW 14.6 H 11.5-14.5 Jun 08, 2024 10:59 AM [facility] BASIC METABOLIC PANEL+MG Specimen Type: PLASMA No comment entered. Ordering Provider: MARYBETH POWELL Report Released Date/Time: May 28, 2024 09:02 AM Reporting Lab: [facility] [address] Performing Lab: [facility] [address] CREATININE 0.9 mg/dL 0.7-1.2 UREA NITROGEN 15 [...] 2024 01:40 PM 86 116/59 18 0 [facility] Jun 22, 2024 04:22 AM 7 [facility] Jun 22, 2024 12:22 AM 5 JAIME LOZANO [facility] Social History: Smoking Status (Most [...] 15, 2024 08:30 AM VA-TOBACCO [facility] 15 YRS OR MORE [facility] May 06, 2023 11:30 AM VA-TOBACCO FORMER USER [facility] May 06, 2023 11:30 AM [...] this document. The data comes from all [place] facilities. Date Advance Directives Provider Source Mar [...] 2 VIEWS PA AND LAT: FLACA WEAVER [id number] -1950 M Exm Date: JUL 08, 2024@10:09 Req Phys: KATELYNN PERSON Pat Loc: 2KG/07-08-2024@11:49 Img Loc: MAIN X-RAY Service: [place] [address] (Case 24 COMPLETE) CHEST 2 VIEWS PA AND LAT (RAD Detailed) CPT:13308 Reason for Study: Uptrending WBC, POD 5 [...] 08, 2024 Date Verified: JUL 08, 2024 Biological Technician E-Sig: Report: CHEST 2 VIEWS PA AND LAT HISTORY: Uptrending WBC, POD 5 COMPARISON: CT chest 11/12/2022 TECHNIQUE: Frontal and lateral views of the chest, submitted to the [place] National Teleradiology Program (NTP) for interpretation. FINDINGS: Lungs: Clear. No focal consolidation. No pulmonary edema. Pleura: No pleural effusion or pneumothorax. Mediastinum: Normal size and contour. Bones: Unremarkable. Impression: No acute cardiopulmonary disease. READING PHYSICIAN: Sarbjit Vaughn M.D. -[phone] 07/08/2024 12:46 [facility] National Teleradiology Program [phone] (For Medical Practitioner Use Only) Attention Patients / Veterans: If you have questions or concerns about these test results, please contact your ordering provider or primary care team. Primary Interpreting Staff: RADIOLOGY,OUTSIDE SERVICE, Staff Physician / RADIOLOGY,OUTSIDE SERVICE [facility] Jul 08, 2024 10:[address] (AP) ABDOMEN/PELVIS W CONTRAST: FLACA WEAVER [id number] -1950 M Exm Date: JUL 08, 2024@10:00 Req Phys: KATELYNN PERSON Loc: 2KG/07-08-2024@12:07 Img Loc: CT IMAGING Service: [place] [address] (Case 22 COMPLETE) CT (AP) ABDOMEN/PELVIS W CONTRAST(CT Detailed) CPT:80407 Contrast Media : Non-ionic Iodinated Reason for [...] PLASMA .CREAT EGFR(CKD-E >90 Ref: >=60 Allergies: ([place] only) TERAZOSIN (Mar 13, 2015) Report Status: Verified Date Reported: JUL 08, 2024 Date Verified: JUL 08, 2024 Biological Technician E-Sig: Report: CT (AP) ABDOMEN/PELVIS W CONTRAST HISTORY: POD 5, Uptrending WBC - Concern for Abscess/other infection COMPARISON: June 21, 2024 TECHNIQUE: CT abdomen and pelvis was performed after intravenous contrast. Axial, sagittal and coronal reformatted images. The study was performed at the local [place] facility and images were sent to the [place] National Teleradiology Program (NTP) for interpretation. Number [...] as noted above READING PHYSICIAN: Celestino Blanc -[phone] 07/08/2024 13:04 [facility] National Teleradiology Program [phone] (For Medical Practitioner Use Only) Attention Patients / Veterans: If you have questions or concerns about these test results, please contact your ordering provider or primary care team. Primary Interpreting Staff: RADIOLOGY,OUTSIDE SERVICE, Staff Physician / RADIOLOGY,OUTSIDE SERVICE [facility] Jun 22, 2024 11:49 AM ABSCESS DRAIN PLACEMENT PERITONEAL (P): FLACA WEAVER [id number] -1950 M Exm Date: JUN 22, 2024@11:49 Req Phys: ADINAANGELA Maeve Pat Loc: [facility]/06-22-2024@17:14 Img Loc: INTERVENTIONAL RADIOLOGY Service: [place] [address] (Case [id number] COMPLETE) IR PERITONEAL/RETROPERITONEAL PER(ANI Detailed) CPT:09904 Reason for Study: diverticulitis with abscess (Case 3570 COMPLETE) IR MOD SEDATION 10-22 MIN (ANI Detailed) CPT:89171 Clinical History: [place] IS NOT under investigation for COVID-19 or is COVID-19 negative 73 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 please place abscess drain. Contact number for responsible provider who can be reached for any questions or notifications of critical findings: [phone] n/a LAST CREATININE 0.9 (06/21/24) Report Status: Verified Date Reported: JUN 22, 2024 Date Verified: JUN 22, 2024 Biological Technician E-Sig:/ES/LISA PENDLETON MD Report: PROCEDURES: Placement [...] anesthesia. Using real-time CT fluoroscopy, a 5 Kuwaiti I'mOKesis catheter was advanced into the collection in the left pelvis. A wire was coiled in the collection. The tract into the collection was dilated to accommodate the 12 Kuwaiti locking pigtail drainage catheter. There was return [...] Primary Interpreting Staff: LISA PENDLETON MD, RADIOLOGIST (Biological Technician) /JRT LISA PENDLETON [facility] Jun 22, 2024 11:[address] NEEDLE PLACEMENT (P): FLACA WEAVER [id number] -1950 M Exm Date: JUN 22, 2024@11:48 Req Phys: ANGELA HOLDEN [facility] Loc: [facility]/06-22-2024@17:14 Img Loc: CT IMAGING Service: [place] [address] (Case [id number] COMPLETE) CT SCAN FOR NEEDLE PLACEMENT (CT Detailed) CPT:74494 Reason for Study: l pelvic abscess drain Clinical History: Report Status: Verified Date Reported: JUN 22, 2024 Date Verified: JUN 22, 2024 Biological Technician E-Sig:/ES/LISA PENDLETON MD Report: PROCEDURES: Placement [...] anesthesia. Using real-time CT fluoroscopy, a 5 Kuwaiti I'mOKesis catheter was advanced into the collection in the left pelvis. A wire was coiled in the collection. The tract into the collection was dilated to accommodate the 12 Kuwaiti locking pigtail drainage catheter. There was return [...] Primary Interpreting Staff: LISA PENDLETON MD, RADIOLOGIST (Biological Technician) /JRT LISA PENDLETON [facility] Jun 21, 2024 06:[address] (AP) ABDOMEN/PELVIS (P): FLACA WEAVER [id number] -1950 M Ex Date: JUN 21, 2024@18:09 Req Phys: DELIA MARTINEZ Loc: [facility] EMERGENCY DEPT WALK-IN (Re Img Loc: CT IMAGING Service: [place] [address] (Case [id number] COMPLETE) CT (AP) ABDOMEN/PELVIS W CONTRAST(CT Detailed) CPT:43856 Contrast Media : Non-ionic Iodinated Reason for [...] PLASMA .CREAT EGFR(CKD-E >90 Ref: >=60 Allergies: ([place] only) TERAZOSIN (Mar 13, 2015) Defer to [...] 21, 2024 Date Verified: JUN 21, 2024 Biological Technician E-Sig:/ES/CARLOS A CUNNINGHAM DO Report: EXAMINATION: CT [...] Interpreting Staff: CARLOS A CUNNINGHAM DO, RADIOLOGIST (Biological Technician) /KMCARLOS A DONALD [facility] May 25, 2024 09:00 AM IR FISTULOGRAM OR SINOGRAM : FLACA WEAVER [id number] -1950 M Exm Date: MAY 25, 2024@09:00 Req Phys: AMINTA PRUITT Pat Loc: [facility] INTERVENTIONAL RADIO Img Loc: INTERVENTIONAL RADIOLOGY Service: [place] [address] (Case [id number] COMPLETE) IR FISTULOGRAM OR SINOGRAM (ANI Detailed) CPT:19876 Contrast Media : unspecified contrast media Reason [...] 25, 2024 Date Verified: MAY 25, 2024 Biological Technician E-Sig:/ES/DAVID BURNS MD Report: PROCEDURES 05/25/2024 [...] Primary Interpreting Staff: DAVID BURNS MD, RADIOLOGIST (Biological Technician) /CSS DAVID BURNS [facility] May 25, 2024 08:[address] (AP) ABDOMEN/PELVIS (P): FLACA WEAVER [id number] -1950 M Exm Date: MAY 25, 2024@08:23 Req Phys: DAVID BURNS Pat Loc: [facility] X[facility] INTERVENTIONAL RADIO Img Loc: CT IMAGING Service: [place] [address] (Case [id number] COMPLETE) CT (AP) ABDOMEN/PELVIS W/O CONTRA(CT Detailed) CPT:42458 Reason for Study: assess abscess and possible drain removal Clinical History: no contrast per venancio Per Joint Commission Standards, by signing this diagnostic imaging request the ordering provider confirms they have considered patients age and recent imaging history. Defer to radiologist for final CT protocol. Contact number for responsible provider who can be reached for any questions or notifications of critical findings: [phone] venancio LAST 3: Collection DT Specimen Test [...] PLASMA .CREAT EGFR(CKD-E >90 Ref: >=60 Allergies: ([place] only) TERAZOSIN (Mar 13, 2015) Report Status: Verified Date Reported: MAY 25, 2024 Date Verified: MAY 25, 2024 Biological Technician E-Sig:/ES/JESSENIA GOODMAN MD Report: EXAM: CT [...] pelvis 04/23/2024.; CT abdomen pelvis 05/05/2020 FINDINGS: PACKAGING TECH: Pigtail catheter projecting over the left hemipelvis [...] Primary Interpreting Staff: JESSENIA GOODMAN MD, RADIOLOGIST (Biological Technician) Primary Interpreting Resident: YOHANNES MELO DO, RENTAL COUNTER CLERK /JESSENIA LOUIE [facility] Pathology Reports: +/- 30 [...] JULIANAIGNER: URGENCY: STATUS: COMPLETED $APHDR Reporting Lab: [facility] [CLIA# [id number]] [place] [address] - - - - - - - [...] - PATHOLOGY REPORT Accession No. [id number] - - - - - - - [...] - PATHOLOGY REPORT Accession No. [id number] - - - - - - - [...] circumferential surgical margin, en face; E-F: Manager Heavy Duty diverticula; G: Manager Heavy Duty section of mesentery; H: Random manufacturer's service representative section of additional adipose tissue [...] One colonic tissue ring, bisected transversely. [facility] MICROSCOPIC DESCRIPTION: Microscopic examination performed. DIAGNOSIS: 1. Colon, sigmoid, sigmoidectomy-- - Diverticulosis with perforation and focal abscess formation 2. Colon, anastomotic rings, excision-- - Viable colonic mucosa without diagnostic abnormality /alexi/ EDUARDO PALOMARES MD STAFF PATHOLOGIST Signed Jul 06, 2024@10:40 Performing Laboratory: Surgical Pathology Report Performed By: [facility] [CLIA# [id number]] [place] [address] $FTR - - - - - - [...] - - FLACA WEAVER STANDARD FORM 515 ID:[id number] SEX:M :1950 AGE: 73 LOC:24995 ADM:Jun DX:DIVERTICULITIS PCP: Jatinder Cabrera /alexi/ EDUARDO PALOMARES MD STAFF PATHOLOGIST Signed: 07/06/2024 10:40 EDUARDO PALOMARES [facility] Jun 22, 2024 01:15 PM LR MICROBIOLOGY RE PORT: Reporting Lab: [facility] [CLIA# [id number]] [place] [address] Accession [UID]: [id number] [[id number]] Received: Jun 22, 2024@13:38 Collection sample: FLUID Collection date: Jun 22, 2024 13:15 Provider: ANGELA HOLDEN Comment on specimen: LLQ ABSCESS, RECEIVED IN ANAEROBIC TRANSPORT VIAL Test(s) ordered: GRAM STAIN.................... completed: Jun 22, 2024 15:03 CULTURE & SUSCEPTIBILITY...... completed: Jun 25, 2024 * BACTERIOLOGY FINAL REPORT => Jun 25, 2024 10:56 TECH CODE: [id number] GRAM STAIN: DIRECT SMEAR of specimen before [...] -=--=--=--=--=--=--=-- Performing Laboratory: Bacteriology Report Performed By: [facility] [CLIA# [id number]] [place] [address] [facility] Jun 22, 2024 01:15 PM LR MICROBIOLOGY RE PORT: Reporting Lab: [facility] [CLIA# [id number]] [place] [address] Accession [UID]: [id number] [[id number]] Received: Jun 22, 2024@13:38 Collection sample: FLUID Collection date: Jun 22, 2024 13:15 Provider: ANGELA HOLDEN Comment on specimen: LLQ ABSCESS, RECEIVED IN ANAEROBIC TRANSPORT VIAL Test(s) ordered: ANAEROBIC CULTURE............. completed: Jun 28, 2024 * BACTERIOLOGY FINAL REPORT => Jun 28, 2024 10:08 TECH CODE: [id number] CULTURE RESULTS: HEAVY GROWTH MIXED ANAEROBES Comment: including the followin+ Bacteroides fragilis 4+ Bacteroides vulgatus 4+ Clostridium innocuum Beta-lactamase negative 4+ Bacteroides caccae 4+ Parvimonas micra 4+ Bacteroides uniformis 4+ Gemella morbillorum 4+ anaerobic small, Gram Positive Rods 4+ Bacteroides thetaiotaomicron Standard workup is now complete. Bacteriology Remark(s): THIS REPORT IS FINAL =--=--=--=--=--=--=--=--=--= --=--=--=--=--=--=--=--=--=- -=--=--=--=--=--=--=-- Performing Laboratory: Bacteriology Report Performed By: [facility] [CLIA# [id number]] [place] [address] [facility] Jun 21, 2024 06:12 PM LR MICROBIOLOGY RE PORT: Reporting Lab: [facility] [CLIA# [id number]] [place] [address] Accession [UID]: [id number] [[id number]] Received: Jun 21, 2024@18:12 Collection sample: BLOOD [...] -=--=--=--=--=--=--=-- Performing Laboratory: Bacteriology Report Performed By: [facility] [IA# [id number]] [place] [address] [facility] Jun 21, 2024 06:11 PM LR MICROBIOLOGY RE PORT: Reporting Lab: [facility] [[facility]# [id number]] [place] [address] Accession [UID]: [id number] [[id number]] Received: Jun 21, 2024@18:11 Collection sample: BLOOD [...] -=--=--=--=--=--=--=-- Performing Laboratory: Bacteriology Report Performed By: [facility] [IA# [id number]] [place] [address] [facility] Jun 08, 2024 11:00 AM LR MICROBIOLOGY RE PORT: Reporting Lab: [facility] [IA# [id number]] [place] [address] Accession [UID]: [id number] [[id number]] Received: Jun 08, 2024@11:00 Collection sample: URINE Collection date: Jun 08, 2024 11:00 Provider: MARYBETH POWELL Comment on specimen: urine Test(s) ordered: CULTURE & SUSCEPTIBILITY...... completed: Jun 09, 2024 * BACTERIOLOGY FINAL REPORT => Jun 09, 2024 19:12 TECH CODE: [id number] CULTURE RESULTS: ESCHERICHIA COLI - Quantity: >100,000 [...] -=--=--=--=--=--=--=-- Performing Laboratory: Bacteriology Report Performed By: [facility] [CLIA# [id number]] [place] [address] [facility] Encounter Notes: All associated encounter notes This section contains the clinical notes associated to the Encounter. Date/Time Encounter Note(s) Provider Source Jun 22, 2024 05:54 PM INTERNAL MEDICINE CONSULT: LOCAL TITLE: MEDICINE CO-MANAGEMENT CONSULT STANDARD TITLE: INTERNAL MEDICINE CONSULT DATE OF NOTE: JUN 22, 2024@17:54 ENTRY DATE: JUN 22, 2024@17:54:36 AUTHOR: JEVON ZAZUETA EXP COSIGNER: URGENCY: STATUS: COMPLETED PRIMARY SERVICE: General Surgery REASON FOR CONSULT: Full co-management HISTORY OF PRESENT ILLNESS: FLACA Lobo is a 73 y/o MALE with a history of: [...] control disorder and prior disruptive behavior complaints. Mr. 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 He's had LLQ drains before and has been noted to have fecal material in his mahtew at times. Per EMR he is scheduled for a lap sigmoidectomy w/ICG and bilateral ureteral stents scheduled on 07/03/24. He presented to the ER due to 3 days of LLQ pain, constipation, chills, N/V and not tolerating PO intake. CT was done noting recurrence of sigmoid diverticulitis complicated by peridiverticular abscess and colovesical fistula. WBC is up to 21k. Blood cultures are pending NGTD, urine was positive for nitrates/pyuria but don't see a culture done. He went to IR today and had a JUAN placed, fluid sent for culture. Gram stain noted: 4+ GRAM POSITIVE COCCI IN PAIRS, 4+ GRAM NEGATIVE RODS, 4+ SMALL GRAM POSITIVE RODS, 2+ LARGE GRAM POSITIVE RODS, 2+ BUDDING YEAST. We were consulted mostly due to he is on a number of cardiac/CHF med's and Gen Surg wanted assistance; but also for full co-management. In meeting Mr. Weaver initially he was pleasant but he quickly became cantankerous, started swearing, stating how bad This place is and How bad of job we are doing; lots of swearing. At first tried to redirect to current admission and current needs but hard to redirect. He was eating a peanut butter and jelly sandwich and swearing about having to be NPO and only liquids last night. We attempted to discuss our recommends on his medications, but this lead to more swearing. He reports he wants to AMA now but no ride, reports he has a friend on the way tomorrow morning to come get him. He also plans on taking his own med's I can do a better job myself, he asked me to leave twice thus I did. -I did update the transmitter engineer in charge and Gen Surg about him having food, his own med's, his plans to AMA, and non-compliance. PAST MEDICAL HISTORY: Active problems - Computerized Problem List is [...] 05.28.2014 Procedure: No biopsies. 07.07.2020 Procedure: No Biopsies . No additional CRC surveillance recommended by outbound sales consultant. 9. Decreased vitamin D - [...] - By 02.13.[address] 03.14.2020 OSH(ED [place], [place]): Pt. Declined Admission. 03.14.2020 CT with Mild Sigmoid diverticulitis. 04.23.2020 ED([facility]): Declined admission. 17. 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 18. Ex-tobacco user 19. Impaired Fasting Glucose (SCT 144743322) - 02.26.2014 A1c 5.8%. 20. Adrenal mass [...] 24. Hiatal hernia 25. Shoulder Pain (SCT [id number]) 26. Trigger finger 27. [facility] Primary Care - Community Care Primary: Dr. Cathi Simeon, [facility], [place] [address]. ALLERGIES: FACILITY ALLERGY/ADR -------- No Remote Allergy/ADR Data available for this patient [facility] TERAZOSIN MEDICATIONS: Active Outpatient Medications (excluding Supplies): Outpatient Medications [...] MOUTH ACTIVE EVERY DAY FOR BLOOD PRESSURE REVIEW OF SYSTEMS Limited due to cantankerous and agitated behavior. Appeared comfortable and non-toxic. PATIENT EXAMINATION: VITALS: Blood pressure: Measurement DT BP 06/22/2024 13:40 116/59 06/21/2024 23:02 130/75 06/21/2024 16:51 162/97 Pulse: Measurement DT PULSE 06/22/2024 13:40 86 06/21/2024 23:02 75 06/21/2024 16:51 100 RR: 18 Temp: 97.9 F [36.6 C] SaO2: 95% on RA PHYSICAL EXAM: Exam limited due to non-compliance. GENERAL: Elderly male resting in bed, appears comfortable, NAD. ENT: Oral membranes not assessed. CV: Not assessed. RESPIRATORY: Regular/relaxed work of breathing, no cough. ABDOMEN: Not assessed. EXTREMITIES: Not-assessed. SKIN: No rash seen on visible skin. MOOD: Alert, cantankerous, swearing and yelling. NEURO: AOx3, CN II-XII grossly intact. LABS: I have reviewed the past 48 [...] use, small hiatal hernia, renal infarct '19. I also note a h/o impulsive control [...] control, antibiotics, DVT prophylaxis, PT/OT/activity, diet resumed. Antibiotics per Gen Surg, but I did recommend Zosyn due to his non-compliance and behaviors, it would be less IV time and interaction. I also suggested Gen Surg call ID and determine if the yeast seen on gram stain should be empirically covered. Antibiotics for now should cover UTI. # Impulsive behavior dyscontrol, h/o # Cantankerous/agitated [...] to do what he thinks is best. Voiced wanting to AMA tonight, plans on leaving in the AM. -Not able to re-direct, left per his request. -Did update the auto body repair technician and the Gen Surg team. --Low [...] diuretics at this time until we can assess his current lab's (K+ was low yesterday), and make sure he does not become hypotensive. Also worried we may double up on med's if he is taking his own. -Continue JOB RECRUITER Atorvastatin. -Continue JOB RECRUITER Isosorbide. -Continue JOB RECRUITER PRN Nitroglycerine. --Would hold home Empagliflozin, Furosemide, HCTZ/Lisinopril, Spironolactone for now. --Will attempt to repeat lab's this evening and in the AM. # JUANJOSE Do not know if he uses CPAP or not at this time. -Will try to ask tomorrow. -Ok for 2L NC oxygen to keep [...] diet. IVF's: None. /alexi/ Jevon Zazueta, PATTI, TEST DESK TROUBLE LOCATOR Nurse Practitioner, Specialty Care-Surgery Signed: 06/22/2024 18:36 JEVON ZAZUETA [facility]
--- OUTSIDE RECORDS SUMMARY | 2024-07-16 07:32 | XMS_ITS ---
[place] DAILY HOSPITALIZATION DATA [facility] Encounter Summary Created on: July 16, 2024 MEG FLACADARCI LOBO : 1950 Sex: Male Author Name [facility] [facility] [place] Address [address] [place] [address] Care Team Providers Care Entertainment Musician Name Role Phone JATINDER CABRERA Primary Care [...] PART A Sep 29, 2016 PART A [id number] [phone] JUDY WEAVER PATIENT Selected Encounter This section includes the information on record at [place] for the Encounter. Date/Time Encounter Type Encounter Description Reason Pro vider Source Jun 23, 2024 09:56 AM Inpatient Visit DAILY HOSPITALIZATION DATA [facility] Encounter Template Text not used by [place] Plan of Treatment: Future Appointments (+ 6 months) and Future Tests (+/- 45 days) The Plan of Treatment section includes future care activities for the patient from all [place] treatmentfacilities. This section includes future appointments and future orders which are active, pending or scheduled. Future Appointments This section includes appointments that were scheduled to occur 6 months from the date of the Encounter, up to a maximum of 20 appointments. The data comes from all [place] treatment facilities. Appointment Date/Time Appointment Type Appointme nt Facility Name Jun 27, 2024 07:00 AM AMBULATORY - NONE [facility] Jun 27, 2024 07:30 AM AMBULATORY - MEDICINE [facility] Jun 27, 2024 08:00 AM AMBULATORY - MEDICINE [facility] Jul 03, 2024 05:55 AM AMBULATORY - NONE [facility] Jul 13, 2024 08:15 AM AMBULATORY - NONE [facility] Active, Pending, and [...] theEncounter. The data comes from all [facility] facilities. Test Date/Time Test Type Test Details Facility Name May 28, 2024 12:00 AM Laboratory - Blood Bank Order TYPE & SCREEN - LAB BLOOD SP [facility] Jun 08, 2024 09:57 AM Laboratory - Chemi stry Order URINALYSIS URINE WC ONCE [facility] Jun 12, 2024 12:00 AM Laboratory - Chemi stry Order BNP PLASMA SP ONCE [facility] Jun 21, 2024 05:45 PM Laboratory - Blood Bank Order TYPE & SCREEN - LAB BLOOD [facility] Jul 03, 2024 12:00 AM Laboratory - Blood Bank Order TYPE & SCREEN - LAB BLOOD [facility] Jul 16, 2024 12:00 AM Laboratory - Chemi stry Order CBC BLOOD SP ONCE [facility] Jul 17, 2024 12:00 AM Laboratory - Chemi stry Order BASIC METABOLIC PANEL+MG PLASMA SP ONCE [facility] Lab Results: +/- 30 days of the encounter This section includes the Chemistry and Hematology Lab Results on record with [place] for the patient. Radiology Reports and Pathology Reports are provided separately, in subsequent sections. Lab Results This section contains the Chemistry/Hematology Results that were resulted 30 days before or 30 daysafter the date of the Encounter. Date/Time Source Result Type Result - Unit Interpretation Reference Range Comment Jul 10, 2024 07:16 AM [facility] PHOSPHORUS Specimen Type: PLASMA No comment entered. Ordering Provider: JUANCARLOS ECHOLS Report Released Date/Time: Jul 09, 2024 12:23 PM Reporting Lab: [facility] [address] Performing Lab: [facility] [address] PHOSPHORUS 3.0 mg/dL 2.3-4.3 Jul 10, 2024 07:16 AM [facility] BASIC METABOLIC PANEL+MG Specimen Type: PLASMA No comment entered. Ordering Provider: JUANCARLOS ECHOLS Report Released Date/Time: Jul 09, 2024 12:23 PM Reporting Lab: [facility] [address] Performing Lab: [facility] [address] CREATININE 0.7 mg/dL 0.7-1.2 UREA NITROGEN 27 mg/dL H 8-26 GLUCOSE 104 mg/dL H 70-100 SODIUM 133 mmol/L L 136-145 POTASSIUM 4.3 mmol/L 3.5-5.1 CHLORIDE 102 mmol/L 98-107 CO2 19 mmol/L L 22-29 CALCIUM 10.1 mg/dL 8.4-10.2 MAGNESIUM 1.9 mg/dL 1.6-2.6 ANION GAP 12 mmol/L 5-15 .CREAT EGFR(CKD-EPI) >90 >60 Jul 10, 2024 07:15 AM [facility] CBC Specimen Type: BLOOD No comment entered. Ordering Provider: JUANCARLOS ECHOLS S Report Released Date/Time: Jul 09, 2024 12:23 PM Reporting Lab: [facility] [address] Performing Lab: [facility] [address] WBC 18.8 H 4.0-11.0 RBC 5.08 4.60-6.20 HGB 15.9 g/dL 13.5-17.9 HCT 46.8 41.0-54.0 MCV 92.1 fL 80.0-100.0 MCH 31.3 pg 27.0-33.0 MCHC 34.0 g/dL 32.0-37.5 PLT 479 H 150-400 MPV 10.2 fL 9.1-13.0 RDW 13.7 11.5-14.5 Jul 09, 2024 07:08 AM [facility] CBC Specimen Type: BLOOD No comment entered. Ordering Provider: QUYNH WEISS AV Report Released Date/Time: Jul 08, 2024 06:18 PM Reporting Lab: [facility] [address] Performing Lab: [facility] [address] WBC 15.3 H 4.0-11.0 RBC 4.91 4.60-6.20 HGB 15.1 g/dL 13.5-17.9 HCT 45.7 41.0-54.0 MCV 93.1 fL 80.0-100.0 MCH 30.8 pg 27.0-33.0 MCHC 33.0 g/dL 32.0-37.5 PLT 443 H 150-400 MPV 10.0 fL 9.1-13.0 RDW 13.5 11.5-14.5 Jul 08, 2024 10:50 AM [facility] URINALYSIS Specimen Type: URINE No comment entered. Ordering Provider: KATELYNN PERSON Report Released Date/Time: Jul 08, 2024 08:41 AM Reporting Lab: [facility] [address] Performing Lab: [facility] [address] URINE COLOR YELLOW SPECIFIC GRAVITY >1.050 H [...] NEGATIVE NEGATIVE Jul 08, 2024 09:54 AM [facility] CBC Specimen Type: BLOOD Comment: Specimen received in Lab at: 0952 Ordering Provider: JUANCARLOS ECHOLS Report Released Date/Time: Jul 07, 2024 04:49 PM Reporting Lab: [facility] [address] Performing Lab: [facility] [address] WBC 17.5 H 4.0-11.0 RBC 4.88 4.60-6.20 HGB 14.9 g/dL 13.5-17.9 HCT 45.7 41.0-54.0 MCV 93.6 fL 80.0-100.0 MCH 30.5 pg 27.0-33.0 MCHC 32.6 g/dL 32.0-37.5 PLT 472 H 150-400 MPV 10.2 fL 9.1-13.0 RDW 13.7 11.5-14.5 Jul 08, 2024 09:54 AM [facility] PHOSPHORUS Specimen Type: PLASMA Comment: Specimen received in Lab at: 0952 Ordering Provider: JUANCARLOS ECHOLS Report Released Date/Time: Jul 07, 2024 04:49 PM Reporting Lab: [facility] [address] Performing Lab: [facility] [address] PHOSPHORUS 2.6 mg/dL 2.3-4.3 Jul 08, 2024 09:54 AM [facility] BASIC METABOLIC PANEL+MG Specimen Type: PLASMA Comment: Specimen received in Lab at: 0952 Ordering Provider: JUANCARLOS ECHOLS Report Released Date/Time: Jul 07, 2024 04:49 PM Reporting Lab: [facility] [address] Performing Lab: [facility] [address] CREATININE 0.9 mg/dL 0.7-1.2 UREA NITROGEN 26 mg/dL 8-26 GLUCOSE 128 mg/dL H 70-100 SODIUM 134 mmol/L L 136-145 POTASSIUM 3.4 mmol/L L 3.5-5.1 CHLORIDE 100 mmol/L 98-107 CO2 24 mmol/L 22-29 CALCIUM 9.8 mg/dL 8.4-10.2 MAGNESIUM 1.8 mg/dL 1.6-2.6 ANION GAP 10 mmol/L 5-15 .CREAT EGFR(CKD-EPI) >90 >60 Jul 07, 2024 02:00 PM [facility] C DIFF PANEL Specimen Type: FECES No comment entered. Ordering Provider: JEVON ZAZUETA Report Released Date/Time: Jul 07, 2024 12:26 PM Reporting Lab: [facility] [address] Performing Lab: [facility] [address] C DIFF TOX B GENE PCR NEGATIVE Negative Jul 07, 2024 07:41 AM [facility] PHOSPHORUS Specimen Type: PLASMA No comment entered. Ordering Provider: JEVON ZAZUETA Report Released Date/Time: Jul 06, 2024 03:44 PM Reporting Lab: [facility] [address] Performing Lab: [facility] [address] PHOSPHORUS 3.1 mg/dL 2.3-4.3 Jul 07, 2024 07:41 AM [facility] BASIC METABOLIC PANEL+MG Specimen Type: PLASMA No comment entered. Ordering Provider: JEVON ZAZUETA Report Released Date/Time: Jul 06, 2024 03:44 PM Reporting Lab: [facility] [address] Performing Lab: [facility] [address] CREATININE 0.9 mg/dL 0.7-1.2 UREA NITROGEN 20 mg/dL 8-26 GLUCOSE 157 mg/dL H 70-100 SODIUM 136 mmol/L 136-145 POTASSIUM 3.7 mmol/L 3.5-5.1 CHLORIDE 102 mmol/L 98-107 CO2 21 mmol/L L 22-29 CALCIUM 9.8 mg/dL 8.4-10.2 MAGNESIUM 1.9 mg/dL 1.6-2.6 ANION GAP 13 mmol/L 5-15 .CREAT EGFR(CKD-EPI) >90 >60 Jul 07, 2024 07:40 AM [facility] CBC Specimen Type: BLOOD No comment entered. Ordering Provider: JEVON ZAZUETA Report Released Date/Time: Jul 06, 2024 03:44 PM Reporting Lab: [facility] [address] Performing Lab: [facility] [address] WBC 21.2 H 4.0-11.0 RBC 5.09 4.60-6.20 HGB 15.9 g/dL 13.5-17.9 HCT 48.3 41.0-54.0 MCV 94.9 fL 80.0-100.0 MCH 31.2 pg 27.0-33.0 MCHC 32.9 g/dL 32.0-37.5 PLT 500 H 150-400 MPV 10.3 fL 9.1-13.0 RDW 13.6 11.5-14.5 Jul 06, 2024 07:21 AM [facility] CBC Specimen Type: BLOOD No comment entered. Ordering Provider: JEVON ZAZUETA Report Released Date/Time: Jul 05, 2024 01:22 PM Reporting Lab: [facility] [address] Performing Lab: [facility] [address] WBC 18.0 H 4.0-11.0 RBC 4.83 4.60-6.20 HGB 14.6 g/dL 13.5-17.9 HCT 45.5 41.0-54.0 MCV 94.2 fL 80.0-100.0 MCH 30.2 pg 27.0-33.0 MCHC 32.1 g/dL 32.0-37.5 PLT 368 150-400 MPV 10.4 fL 9.1-13.0 RDW 13.6 11.5-14.5 Jul 06, 2024 07:21 AM [facility] PHOSPHORUS Specimen Type: PLASMA No comment entered. Ordering Provider: JEVON ZAZUETA Report Released Date/Time: Jul 05, 2024 01:22 PM Reporting Lab: [facility] [address] Performing Lab: [facility] [address] PHOSPHORUS 3.6 mg/dL 2.3-4.3 Jul 06, 2024 07:21 AM [facility] BASIC METABOLIC PANEL+MG Specimen Type: PLASMA No comment entered. Ordering Provider: JEVON ZAZUETA Report Released Date/Time: Jul 05, 2024 01:22 PM Reporting Lab: [facility] [address] Performing Lab: [facility] [address] CREATININE 0.7 mg/dL 0.7-1.2 UREA NITROGEN 12 mg/dL 8-26 GLUCOSE 108 mg/dL H 70-100 SODIUM 138 mmol/L 136-145 POTASSIUM 3.4 mmol/L L 3.5-5.1 CHLORIDE 104 mmol/L 98-107 CO2 20 mmol/L L 22-29 CALCIUM 9.3 mg/dL 8.4-10.2 MAGNESIUM 1.9 mg/dL 1.6-2.6 ANION GAP 14 mmol/L 5-15 .CREAT EGFR(CKD-EPI) >90 >60 Jul 05, 2024 07:17 AM [facility] MAGNESIUM Specimen Type: PLASMA No comment entered. Ordering Provider: JUANCARLOS ECHOLS Report Released Date/Time: Jul 04, 2024 09:39 AM Reporting Lab: [facility] [address] Performing Lab: [facility] [address] MAGNESIUM 2.0 mg/dL 1.6-2.6 Jul 05, 2024 07:17 AM [facility] PHOSPHORUS Specimen Type: PLASMA No comment entered. Ordering Provider: JUANCARLOS ECHOLS S Report Released Date/Time: Jul 04, 2024 09:39 AM Reporting Lab: [facility] [address] Performing Lab: [facility] [address] PHOSPHORUS 2.0 mg/dL L 2.3-4.3 Jul 05, 2024 07:17 AM [facility] BASIC METABOLIC PANEL+MG Specimen Type: PLASMA No comment entered. Ordering Provider: JUANCARLOS ECHOLS S Report Released Date/Time: Jul 04, 2024 09:39 AM Reporting Lab: [facility] [address] Performing Lab: [facility] [address] CREATININE 0.7 mg/dL 0.7-1.2 UREA NITROGEN 12 mg/dL 8-26 GLUCOSE 84 mg/dL 70-100 SODIUM 135 mmol/L L 136-145 POTASSIUM 3.8 mmol/L 3.5-5.1 CHLORIDE 104 mmol/L 98-107 CO2 24 mmol/L 22-29 CALCIUM 9.3 mg/dL 8.4-10.2 MAGNESIUM 2.0 mg/dL 1.6-2.6 ANION GAP 7 mmol/L 5-15 .CREAT EGFR(CKD-EPI) >90 >60 Jul 05, 2024 07:16 AM [facility] CBC Specimen Type: BLOOD No comment entered. Ordering Provider: JUANCARLOS ECHOLS S Report Released Date/Time: Jul 04, 2024 09:39 AM Reporting Lab: [facility] [address] Performing Lab: [facility] [address] WBC 18.3 H 4.0-11.0 RBC 4.49 L 4.60-6.20 HGB 14.1 g/dL 13.5-17.9 HCT 43.4 41.0-54.0 MCV 96.7 fL 80.0-100.0 MCH 31.4 pg 27.0-33.0 MCHC 32.5 g/dL 32.0-37.5 PLT 317 150-400 MPV 10.0 fL 9.1-13.0 RDW 13.9 11.5-14.5 Jul 04, 2024 07:17 AM [facility] BASIC METABOLIC PANEL+MG Specimen Type: PLASMA No comment entered. Ordering Provider: GABINO CAMERON Report Released Date/Time: Jul 03, 2024 06:31 PM Reporting Lab: [facility] [address] Performing Lab: [facility] [address] CREATININE 0.7 mg/dL 0.7-1.2 UREA NITROGEN 16 mg/dL 8-26 GLUCOSE 129 mg/dL H 70-100 SODIUM 137 mmol/L 136-145 POTASSIUM 3.7 mmol/L 3.5-5.1 CHLORIDE 107 mmol/L 98-107 CO2 22 mmol/L 22-29 CALCIUM 9.0 mg/dL 8.4-10.2 MAGNESIUM 1.9 mg/dL 1.6-2.6 ANION GAP 8 mmol/L 5-15 .CREAT EGFR(CKD-EPI) >90 >60 Jul 04, 2024 07:17 AM [facility] PHOSPHORUS Specimen Type: PLASMA No comment entered. Ordering Provider: GABINO CAMERON Report Released Date/Time: Jul 03, 2024 06:31 PM Reporting Lab: [facility] [address] Performing Lab: [facility] [address] PHOSPHORUS 2.8 mg/dL 2.3-4.3 Jul 04, 2024 07:16 AM [facility] CBC Specimen Type: BLOOD No comment entered. Ordering Provider: GABINO CAMERON Report Released Date/Time: Jul 03, 2024 06:31 PM Reporting Lab: [facility] [address] Performing Lab: [facility] [address] WBC 20.6 H 4.0-11.0 RBC 4.63 4.60-6.20 HGB 14.2 g/dL 13.5-17.9 HCT 43.4 41.0-54.0 MCV 93.7 fL 80.0-100.0 MCH 30.7 pg 27.0-33.0 MCHC 32.7 g/dL 32.0-37.5 PLT 329 150-400 MPV 10.4 fL 9.1-13.0 RDW 13.8 11.5-14.5 Jul 04, 2024 07:16 AM [facility] CBC & DIFF Specimen Type: BLOOD Comment: Manual Differential Performed Ordering Provider: GABINO CAMERON Report Released Date/Time: Jul 03, 2024 06:31 PM Reporting Lab: [facility] [address] Performing Lab: [facility] [address] WBC 20.6 H 4.0-11.0 RBC 4.63 4.60-6.20 [...] MORPHOLOGY PRESENT Jul 04, 2024 07:15 AM [facility] BNP Specimen Type: PLASMA No comment entered. Ordering Provider: GABINO CAMERON Report Released Date/Time: Jul 03, 2024 06:31 PM Reporting Lab: [facility] [address] Performing Lab: [facility] [address] BNP 292 pg/mL H <99 Jul 03, 2024 10:32 PM [facility] FINGERSTICK GLUCOSE Specimen Type: BLOOD Comment: Save Result Nurse Notified Ordering Provider: KATELYNN PERSON Report Released Date/Time: Jul 03, 2024 10:50 PM Reporting Lab: [facility] [address] Performing Lab: [facility] [address] FINGERSTICK GLUCOSE 126 mg/dL H 70-100 Jul 03, 2024 05:33 PM [facility] FINGERSTICK GLUCOSE Specimen Type: BLOOD Comment: Save Result Nurse Notified Ordering Provider: KATELYNN PERSON Report Released Date/Time: Jul 03, 2024 05:46 PM Reporting Lab: [facility] [address] Performing Lab: [facility] [address] FINGERSTICK GLUCOSE 141 mg/dL H 70-100 Jul 03, 2024 02:31 PM [facility] POC ABG/ELECTROLYTES Specimen Type: ARTERIAL BLOOD Comment: FIO2 = 97% Patient Temp: 36.0 C Sample Type = ARTERIAL Ordering Provider: MAZIN ARREDONDO Report Released Date/Time: Jul 03, 2024 01:48 PM Reporting Lab: [facility] [address] Performing Lab: [facility] [address] POC PH 7.387 7.35-7.45 POC PCO2 34.4 [...] H 80.0-105.0 Jul 03, 2024 01:05 PM [facility] POC ABG/ELECTROLYTES Specimen Type: ARTERIAL BLOOD Comment: FIO2 = 53% Patient Temp: 36.2 C Sample Type = ARTERIAL Ordering Provider: MAZIN ARREDONDO Report Released Date/Time: Jul 03, 2024 01:48 PM Reporting Lab: [facility] [address] Performing Lab: [facility] [address] POC PH 7.280 L 7.35-7.45 POC PCO2 [...] mm[Hg] 80.0-105.0 Jul 03, 2024 06:15 AM [facility] URINALYSIS Specimen Type: URINE No comment entered. Ordering Provider: MARYBETH POWELL Report Released Date/Time: Jun 12, 2024 04:01 PM Reporting Lab: [facility] [address] Performing Lab: [facility] [address] URINE COLOR YELLOW SPECIFIC GRAVITY 1.031 1.003-1.03 [...] 250 NEGATIVE Jul 03, 2024 06:13 AM [facility] CBC Specimen Type: BLOOD No comment entered. Ordering Provider: MARYBETH POWELL Report Released Date/Time: Jun 12, 2024 03:59 PM Reporting Lab: [facility] [address] Performing Lab: [facility] [address] WBC 15.8 H 4.0-11.0 RBC 5.11 4.60-6.20 HGB 16.1 g/dL 13.5-17.9 HCT 49.1 41.0-54.0 MCV 96.1 fL 80.0-100.0 MCH 31.5 pg 27.0-33.0 MCHC 32.8 g/dL 32.0-37.5 PLT 357 150-400 MPV 9.8 fL 9.1-13.0 RDW 13.7 11.5-14.5 Jun 24, 2024 09:50 AM [facility] BASIC METABOLIC PANEL+MG Specimen Type: PLASMA Comment: Specimen received in Lab at: 0948 Ordering Provider: JEVON ZAZUETA Report Released Date/Time: Jun 23, 2024 06:07 PM Reporting Lab: [facility] [address] Performing Lab: [facility] [address] CREATININE 0.8 mg/dL 0.7-1.2 UREA NITROGEN 13 mg/dL 8-26 GLUCOSE 135 mg/dL H 70-100 SODIUM 135 mmol/L L 136-145 POTASSIUM 3.6 mmol/L 3.5-5.1 CHLORIDE 103 mmol/L 98-107 CO2 24 mmol/L 22-29 CALCIUM 9.2 mg/dL 8.4-10.2 MAGNESIUM 1.9 mg/dL 1.6-2.6 ANION GAP 8 mmol/L 5-15 .CREAT EGFR(CKD-EPI) >90 >60 Jun 24, 2024 09:50 AM [facility] CBC Specimen Type: BLOOD Comment: Specimen received in Lab at: 0948 Ordering Provider: JEVON ZAZUETA Report Released Date/Time: Jun 23, 2024 06:07 PM Reporting Lab: [facility] [address] Performing Lab: [facility] [address] WBC 15.5 H 4.0-11.0 RBC 4.93 4.60-6.20 HGB 15.2 g/dL 13.5-17.9 HCT 46.5 41.0-54.0 MCV 94.3 fL 80.0-100.0 MCH 30.8 pg 27.0-33.0 MCHC 32.7 g/dL 32.0-37.5 PLT 223 150-400 MPV 11.4 fL 9.1-13.0 RDW 13.9 11.5-14.5 Jun 23, 2024 07:52 AM [facility] COMPREHENSIVE METABOLIC PANEL+MG Specimen Type: PLASMA No comment entered. Ordering Provider: JEVON ZAZUETA Report Released Date/Time: Jun 22, 2024 05:51 PM Reporting Lab: [facility] [address] Performing Lab: [facility] [address] CREATININE 0.7 mg/dL 0.7-1.2 UREA NITROGEN 16 [...] >90 >60 Jun 23, 2024 07:52 AM [facility] CBC & DIFF Specimen Type: BLOOD Comment: Automated Differential Performed Ordering Provider: JEVON ZAZUETA Report Released Date/Time: Jun 22, 2024 05:51 PM Reporting Lab: [facility] [address] Performing Lab: [facility] [address] WBC 14.9 H 4.0-11.0 RBC 5.09 4.60-6.20 [...] 0.1 0.0-0.1 Jun 22, 2024 06:10 PM [facility] CBC Specimen Type: BLOOD No comment entered. Ordering Provider: JEVON ZAZUTEA Report Released Date/Time: Jun 22, 2024 05:51 PM Reporting Lab: [facility] [address] Performing Lab: [facility] [address] WBC 16.9 H 4.0-11.0 RBC 5.28 4.60-6.20 HGB 16.9 g/dL 13.5-17.9 HCT 50.4 41.0-54.0 MCV 95.5 fL 80.0-100.0 MCH 32.0 pg 27.0-33.0 MCHC 33.5 g/dL 32.0-37.5 PLT 223 150-400 MPV 10.9 fL 9.1-13.0 RDW 14.0 11.5-14.5 Jun 22, 2024 06:10 PM [facility] COMPREHENSIVE METABOLIC PANEL+MG Specimen Type: PLASMA No comment entered. Ordering Provider: JEVON ZAZUETA Report Released Date/Time: Jun 22, 2024 05:51 PM Reporting Lab: [facility] [address] Performing Lab: [facility] [address] CREATININE 0.7 mg/dL 0.7-1.2 UREA NITROGEN 17 [...] >90 >60 Jun 21, 2024 06:48 PM [facility] URINALYSIS Specimen Type: URINE No comment entered. Ordering Provider: DELIA MARTINEZ Report Released Date/Time: Jun 21, 2024 05:45 PM Reporting Lab: [facility] [address] Performing Lab: [facility] [address] URINE COLOR YELLOW SPECIFIC GRAVITY 1.041 H [...] 500 NEGATIVE Jun 21, 2024 05:34 PM [facility] POC CREATININE Specimen Type: BLOOD No comment entered. Ordering Provider: DELIA MARTINEZ Report Released Date/Time: Jun 21, 2024 06:07 PM Reporting Lab: [facility] [address] Performing Lab: [facility] [address] POC CREATININE 1.1 mg/dL 0.6-1.3 Jun 21, 2024 05:30 PM [facility] POC ABG/LACTATE Specimen Type: VENOUS BLOOD No comment entered. Ordering Provider: DELIA MARTINEZ Report Released Date/Time: Jun 21, 2024 06:07 PM Reporting Lab: [facility] [address] Performing Lab: [facility] [address] POC PH 7.470 H 7.31-7.41 POC PCO2 31.2 mm[Hg] L 41.00-51 .0 0 POC PO2 46 mm[Hg] H 35.0-40.0 POC TCO2 24 mmol/L 24.0-29.0 POC HCO3 22.7 mmol/L L 23.0-28.0 POC BE ECT -1 mmol/L POC SO2 85 H 70-75 POC LACTATE 1.85 mmol/L 0.90-1.70 Jun 21, 2024 05:24 PM [facility] PROTHROMBIN TIME/INR Specimen Type: PLASMA No comment entered. Ordering Provider: DELIA MARTINEZ Report Released Date/Time: Jun 21, 2024 05:30 PM Reporting Lab: [facility] [id number] Performing Lab: [facility] [phone] .INR 1.2 H 0.8-1.1 .PT 13.9 s H 9.4-12.5 Jun 21, 2024 05:24 PM [facility] LIPASE Specimen Type: PLASMA No comment entered. Ordering Provider: DELIA MARTINEZ Report Released Date/Time: Jun 21, 2024 05:30 PM Reporting Lab: [facility] [phone] Performing Lab: [facility] [phone] LIPASE 32 U/L <60 Jun 21, 2024 05:24 PM [facility] EXTRA GOLD GEL TUBE Specimen Type: SERUM No comment entered. Ordering Provider: DELIA MARTINEZ Report Released Date/Time: Jun 21, 2024 05:41 PM Reporting Lab: [facility] [phone] Performing Lab: [facility] [phone] EXTRA GOLD GEL TUBE RECEIVED Jun 21, 2024 05:24 PM [facility] COMPREHENSIVE METABOLIC PANEL+MG Specimen Type: PLASMA No comment entered. Ordering Provider: DELIA MARTINEZ Report Released Date/Time: Jun 21, 2024 05:30 PM Reporting Lab: [facility] [phone] Performing Lab: [facility] [phone] CREATININE 0.9 mg/dL 0.7-1.2 UREA NITROGEN 29 [...] mg/dL <0.5 Jun 21, 2024 05:24 PM [facility] CBC & DIFF Specimen Type: BLOOD Comment: Manual Differential Performed Ordering Provider: DELIA MARTINEZ Report Released Date/Time: Jun 21, 2024 05:30 PM Reporting Lab: [facility] [phone] Performing Lab: [facility] [phone] WBC 21.3 H 4.0-11.0 RBC 5.48 4.60-6.20 [...] MORPHOLOGY PRESENT Jun 08, 2024 10:59 AM [facility] PROTHROMBIN TIME/INR Specimen Type: PLASMA No comment entered. Ordering Provider: MARYBETH POWELL Report Released Date/Time: May 28, 2024 09:02 AM Reporting Lab: [facility] [phone] Performing Lab: [facility] [phone] .INR 1.0 0.8-1.1 .PT 11.8 s 9.4-12.5 Jun 08, 2024 10:59 AM [facility] HEMOGLOBIN A1C Specimen Type: BLOOD Comment: Values [...] May 28, 2024 09:02 AM Reporting Lab: [facility] [phone] Performing Lab: [facility] [phone] HEMOGLOBIN A1C 4.9 4.0-6.0 Jun 08, 2024 10:59 AM [facility] CBC Specimen Type: BLOOD No comment entered. Ordering Provider: MARYBETH POWELL Report Released Date/Time: May 28, 2024 09:02 AM Reporting Lab: [facility] [phone] Performing Lab: [facility] [phone] WBC 16.1 H 4.0-11.0 RBC 5.02 4.60-6.20 HGB 16.0 g/dL 13.5-17.9 HCT 47.1 41.0-54.0 MCV 93.8 fL 80.0-100.0 MCH 31.9 pg 27.0-33.0 MCHC 34.0 g/dL 32.0-37.5 PLT 228 150-400 MPV 10.3 fL 9.1-13.0 RDW 14.6 H 11.5-14.5 Jun 08, 2024 10:59 AM [facility] BASIC METABOLIC PANEL+MG Specimen Type: PLASMA No comment entered. Ordering Provider: MARYBETH POWELL Report Released Date/Time: May 28, 2024 09:02 AM Reporting Lab: [facility] [phone] Performing Lab: [facility] [phone] CREATININE 0.9 mg/dL 0.7-1.2 UREA NITROGEN 15 [...] Height Weight Body Mass Index Source Jun 23, 2024 10:28 PM 3 [facility] Jun 23, 2024 09:28 PM 4 [facility] Jun 23, 2024 06:07 PM 6 [facility] Jun 23, 2024 05:21 PM 7 [facility] Jun 23, 2024 05:36 AM 6 [facility] Social History: Smoking Status (Most current) and Tobacco Use (All prior to encounter date) This section includes the most current, and the historical, smoking and tobacco- related health factors from the [place] facility where the Encounter took place. Current Smoking Status This section includes the most current smoking, or tobacco-related health factor, from the [place] facility where the Encounter took place. Date/Time Current Smoking Status Comment Juan Manuel putnam May 15, 2024 08:30 AM VA-TOBACCO FORMER USER [facility] Tobacco Use History This section includes a history of the smoking, or tobacco-related health factors, that were collected on or before the date of the Encounter. The data comes from the [place] facility where the Encounter took place. Date/Time Smoking Status/Tobacco Use Comment F acility May 15, 2024 08:30 AM VA-TOBACCO QUIT 15 YRS OR MORE [facility] May 06, 2023 11:30 AM VA-TOBACCO FORMER USER [facility] May 06, 2023 11:30 AM VA-TOBACCO QUIT [...] ALL of a patient's completed or amended [place] Advance and Rescinded Directives. The entries below [...] the Encounter. The data comes from all [place] treatment facilities. Date/Time Radiology Report Provider Source Jul 08, 2024 10:09 AM CHEST 2 VIEWS PA AND LAT: FLACA WEAVER [id number] -1950 M Exm Date: JUL 08, 2024@10:09 Req Phys: KATELYNN PERSON Pat Loc: 2KG/07-08-2024@11:49 Img Loc: MAIN X-RAY Service: [place] [address] (Case [id number] COMPLETE) CHEST 2 VIEWS PA AND LAT (RAD Detailed) CPT:19535 Reason for Study: Uptrending WBC, POD 5 [...] 08, 2024 Date Verified: JUL 08, 2024 Marine Underwriter E-Sig: Report: CHEST 2 VIEWS PA AND LAT HISTORY: Uptrending WBC, POD 5 COMPARISON: CT chest 11/12/2022 TECHNIQUE: Frontal and lateral views of the chest, submitted to the [place] National Teleradiology Program (NTP) for interpretation. FINDINGS: Lungs: Clear. No focal consolidation. No pulmonary edema. Pleura: No pleural effusion or pneumothorax. Mediastinum: Normal size and contour. Bones: Unremarkable. Impression: No acute cardiopulmonary disease. READING PHYSICIAN: Sarbjit Vaughn M.D. -[phone] 07/08/2024 12:46 EST [facility] National Teleradiology Program [phone] (For Medical Practitioner Use Only) Attention Patients / Veterans: If you have questions or concerns about these test results, please contact your ordering provider or primary care team. Primary Interpreting Staff: RADIOLOGY,OUTSIDE SERVICE, Staff Physician / RADIOLOGY,OUTSIDE SERVICE [facility] Jul 08, 2024 10:[address] (AP) ABDOMEN/PELVIS W CONTRAST: FLACA WEAVER [id number] -1950 M Exm Date: JUL 08, 2024@10:00 Req Phys: KATELYNN PERSON Loc: 2KG/07-08-2024@12:07 [facility] Loc: CT IMAGING Service: [place] [address] (Case 22 COMPLETE) CT (AP) ABDOMEN/PELVIS W CONTRAST(CT Detailed) CPT:40223 Contrast Media : Non-ionic Iodinated Reason for [...] PLASMA .CREAT EGFR(CKD-E >90 Ref: >=60 Allergies: ([place] only) TERAZOSIN (Mar 13, 2015) Report Status: Verified Date Reported: JUL 08, 2024 Date Verified: JUL 08, 2024 Marine Underwriter E-Sig: Report: CT (AP) ABDOMEN/PELVIS W CONTRAST HISTORY: POD 5, Uptrending WBC - Concern for Abscess/other infection COMPARISON: June 21, 2024 TECHNIQUE: CT abdomen and pelvis was performed after intravenous contrast. Axial, sagittal and coronal reformatted images. The study was performed at the local [place] facility and images were sent to the [place] National Teleradiology Program (NTP) for interpretation. Number [...] as noted above READING PHYSICIAN: Celestino Blanc -[phone] 07/08/2024 13:04 [facility] Rapid Mobile Teleradiology Program [phone] (For Medical Practitioner Use Only) Attention Patients / Veterans: If you have questions or concerns about these test results, please contact your ordering provider or primary care team. Primary Interpreting Staff: RADIOLOGY,OUTSIDE SERVICE, Staff Physician / RADIOLOGY,OUTSIDE SERVICE [facility] Jun 22, 2024 11:49 AM ABSCESS DRAIN PLACEMENT PERITONEAL (P): FLACA WEAVER [id number] -1950 M Exm Date: JUN 22, 2024@11:49 Req Phys: ANGELA HOLDEN Loc: 2K06-22-2024@17:14 Img Loc: INTERVENTIONAL RADIOLOGY Service: [place] [address] (Case [id number] COMPLETE) IR PERITONEAL/RETROPERITONEAL PER(ANI Detailed) CPT:35627 Reason for Study: diverticulitis with abscess (Case 3570 COMPLETE) IR MOD SEDATION 10-22 MIN (ANI Detailed) CPT:78404 Clinical History: Wedron IS NOT under investigation for COVID-19 or is COVID-19 negative 73 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 please place abscess drain. Contact number for responsible provider who can be reached for any questions or notifications of critical findings: [phone] n/a LAST CREATININE 0.9 (06/21/24) Report Status: Verified Date Reported: JUN 22, 2024 Date Verified: JUN 22, 2024 Marine Underwriter E-Sig:/ES/LISA PENDLETON MD Report: PROCEDURES: Placement of [...] anesthesia. Using real-time CT fluoroscopy, a 5 Lebanese Arigo catheter was advanced into the collection in the left pelvis. A wire was coiled in the collection. The tract into the collection was dilated to accommodate the 12 Lebanese locking pigtail drainage catheter. There was return [...] Primary Interpreting Staff: LISA PENDLETON MD, RADIOLOGIST (Marine Underwriter) /JRT LISA PENDLETON [facility] Jun 22, 2024 11:[address] NEEDLE PLACEMENT (P): FLACA WEAVER [id number] -1950 M Exm Date: JUN 22, 2024@11:48 Req Phys: ANGELA HOLDEN Loc: [facility]/06-22-2024@17:14 Img Loc: CT IMAGING Service: [place] [address] (Case [id number] COMPLETE) CT SCAN FOR NEEDLE PLACEMENT (CT Detailed) CPT:22053 Reason for Study: l pelvic abscess drain Clinical History: Report Status: Verified Date Reported: JUN 22, 2024 Date Verified: JUN 22, 2024 Marine Underwriter E-Sig:/ES/LISA PENDLETON MD Report: PROCEDURES: Placement of [...] anesthesia. Using real-time CT fluoroscopy, a 5 Lebanese gifted2youesis catheter was advanced into the collection in the left pelvis. A wire was coiled in the collection. The tract into the collection was dilated to accommodate the 12 Lebanese locking pigtail drainage catheter. There was return [...] Primary Interpreting Staff: LISA PENDLETON MD, RADIOLOGIST (Marine Underwriter) /JRT LISA PENDLETON [facility] Jun 21, 2024 06:[address] (AP) ABDOMEN/PELVIS (P): FLACA WEAVER [id number] -1950 M Exm Date: JUN 21, 2024@18:09 Req Phys: DELIA MARTINEZ Loc: [facility] EM[facility]Y [facility]PT WALK-IN (Re Img Loc: CT IMAGING Service: [place] [address] (Case [id number] COMPLETE) CT (AP) ABDOMEN/PELVIS W CONTRAST(CT Detailed) CPT:84114 Contrast Media : Non-ionic Iodinated Reason for [...] PLASMA .CREAT EGFR(CKD-E >90 Ref: >=60 Allergies: ([place] only) TERAZOSIN (Mar 13, 2015) Defer to [...] 21, 2024 Date Verified: JUN 21, 2024 Marine Underwriter E-Sig:/ES/CARLOS A CUNNINGHAM DO Report: EXAMINATION: CT [...] Interpreting Staff: CARLOS A CUNNINGHAM DO, RADIOLOGIST (Marine Underwriter) /CARLOS A ROWELL [facility] May 25, 2024 09:00 AM IR FISTULOGRAM OR SINOGRAM : FLACA WEAVER [id number] -1950 M Exm Date: MAY 25, 2024@09:00 Req Phys: AMINTA PRUITT Loc: [facility] XRAY INTERVENTIONAL RADIO Img Loc: INTERVENTIONAL RADIOLOGY Service: [place] [address] (Case [id number] COMPLETE) IR FISTULOGRAM OR SINOGRAM (ANI Detailed) CPT:21728 Contrast Media : unspecified contrast media Reason [...] 25, 2024 Date Verified: MAY 25, 2024 Marine Underwriter E-Sig:/ES/DAVID BURNS MD Report: PROCEDURES 05/25/2024 9:48 [...] Primary Interpreting Staff: DAVID BURNS MD, RADIOLOGIST (Marine Underwriter) /CSS DAVID BURNS [facility] May 25, 2024 08:[address] (AP) ABDOMEN/PELVIS (P): FLACA WEAVER [id number] -1950 M Exm Date: MAY 25, 2024@08:23 Req Phys: DAVID BURNS Pat Loc: [facility] XRAY INTERVENTIONAL RADIO Img Loc: CT IMAGING Service: [place] [address] (Case [id number] COMPLETE) CT (AP) ABDOMEN/PELVIS W/O CONTRA(CT Detailed) CPT:11012 Reason for Study: assess abscess and possible [...] PLASMA .CREAT EGFR(CKD-E >90 Ref: >=60 Allergies: ([place] only) TERAZOSIN (Mar 13, 2015) Report Status: Verified Date Reported: MAY 25, 2024 Date Verified: MAY 25, 2024 Marine Underwriter E-Sig:/ES/JESSENIA GOODMAN MD Report: EXAM: CT abdomen and pelvis without intravenous contrast. 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 TECHNIQUE: Helical acquisition of image data was performed for the abdomen and pelvis without intravenous contrast. Dose: 512.57 mGy*cm COMPARISON: CT abdomen pelvis with contrast 05/11/[address] abdomen pelvis 04/23/2024.; CT abdomen pelvis 05/05/2020 FINDINGS: DISPATCHER MAINTENANCE SERVICE: Pigtail catheter projecting over the left hemipelvis [...] Primary Interpreting Staff: JESSENIA GOODMAN MD, RADIOLOGIST (Marine Underwriter) Primary Interpreting Resident: YOHANNES MELO DO, MILL DRESSER /CMJESSENIA SOSA [facility] Pathology Reports: +/- [...] the Encounter. The data comes from all [place] treatment facilities. Date/Time Pathology Report Provider Source Jul 03, 2024 05:59 AM LR SURGICAL PATHOL OGY REPORT: LOCAL TITLE: LR SURGICAL PATHOLOGY REPORT STANDARD TITLE: PATHOLOGY REPORT DATE OF NOTE: JUL 06, 2024@10:40:48 ENTRY DATE: JUL 06, 2024@10:40:48 AUTHOR: EDUARDO PALOMARES EXP COSIGNER: URGENCY: STATUS: COMPLETED $APHDR Reporting Lab: [facility] [CLIA# [id number]] [place] [address] - - - - - - - [...] - PATHOLOGY REPORT Accession No. [id number] - - - - - - - [...] - PATHOLOGY REPORT Accession No. [id number] - - - - - - - [...] Second circumferential surgical margin, en face; E-F: Dried Fruit Washer diverticula; G: Dried Fruit Washer section of mesentery; H: Random financial service representative section of additional adipose tissue [...] One colonic tissue ring, bisected transversely. [facility]: Microscopic examination performed. DIAGNOSIS: 1. Colon, sigmoid, sigmoidectomy-- - Diverticulosis with perforation and focal abscess formation 2. Colon, anastomotic rings, excision-- - Viable colonic mucosa without diagnostic abnormality /es/ EDUARDO PALOMARES MD STAFF PATHOLOGIST Signed Jul 06, 2024@10:40 Performing Laboratory: Surgical Pathology Report Performed By: [facility] [CLIA# [id number]] [place] [address] $FTR - - - - - - - - - - - - - - - - - - - - - - - - - - - - - - - - - - - - - - - - (End of report) EDUARDO PALOMARES MD [facility] Date Jul 06, 2024 - - - - - - - - - - - - - - - - - - - - - - - - - - - - - - - - - - - - - - - - FLACA WEAVER STANDARD FORM 515 ID:[id number] SEX:M :1950 AGE: 73 LOC:97586 ADM:Jun DX:DIVERTICULITIS PCP: Jatinder Cabrera /alexi/ EDUARDO PALOMARES MD STAFF PATHOLOGIST Signed: 07/06/2024 10:40 EDUARDO PALOMARES [facility] Jun 22, 2024 01:15 PM LR MICROBIOLOGY RE PORT: Reporting Lab: [facility] [CLIA# [id number]] [place] [address] Accession [UID]: [id number] [[id number]] Received: Jun 22, 2024@13:38 Collection sample: FLUID Collection date: Jun 22, 2024 13:15 Provider: ANGELA HOLDEN Comment on specimen: LLQ ABSCESS, RECEIVED IN ANAEROBIC TRANSPORT VIAL Test(s) ordered: GRAM STAIN.................... completed: Jun 22, 2024 15:03 CULTURE & SUSCEPTIBILITY...... completed: Jun 25, 2024 * BACTERIOLOGY FINAL REPORT => Jun 25, 2024 10:56 TECH CODE: [id number] GRAM STAIN: DIRECT SMEAR of specimen before [...] -=--=--=--=--=--=--=-- Performing Laboratory: Bacteriology Report Performed By: [facility] [CLIA# [id number]] [place] [address] [facility] Jun 22, 2024 01:15 PM LR MICROBIOLOGY RE PORT: Reporting Lab: [facility] [CLIA# [id number]] [place] [address] Accession [UID]: [id number] [[id number]] Received: Jun 22, 2024@13:38 Collection sample: FLUID Collection date: Jun 22, 2024 13:15 Provider: ANGELA HOLDEN Comment on specimen: LLQ ABSCESS, RECEIVED IN ANAEROBIC TRANSPORT VIAL Test(s) ordered: ANAEROBIC CULTURE............. completed: Jun 28, 2024 * BACTERIOLOGY FINAL REPORT => Jun 28, 2024 10:08 TECH CODE: [id number] CULTURE RESULTS: HEAVY GROWTH MIXED ANAEROBES Comment: including the followin+ Bacteroides fragilis 4+ Bacteroides vulgatus 4+ Clostridium innocuum Beta-lactamase negative 4+ Bacteroides caccae 4+ Parvimonas micra 4+ Bacteroides uniformis 4+ Gemella morbillorum 4+ anaerobic small, Gram Positive Rods 4+ Bacteroides thetaiotaomicron Standard workup is now complete. Bacteriology Remark(s): THIS REPORT IS FINAL =--=--=--=--=--=--=--=--=--= --=--=--=--=--=--=--=--=--=- -=--=--=--=--=--=--=-- Performing Laboratory: Bacteriology Report Performed By: [facility] [CLIA# [id number]] [place] [address] [facility] Jun 21, 2024 06:12 PM LR MICROBIOLOGY RE PORT: Reporting Lab: [facility] [CLIA# [id number]] [place] [address] Accession [UID]: [id number] [[id number]] Received: Jun 21, 2024@18:12 Collection sample: BLOOD [...] -=--=--=--=--=--=--=-- Performing Laboratory: Bacteriology Report Performed By: [facility] [CLIA# [id number]] [place] [address] [facility] Jun 21, 2024 06:11 PM LR MICROBIOLOGY RE PORT: Reporting Lab: [facility] [IA# [id number]] [place] [address] Accession [UID]: [id number] [[id number]] Received: Jun 21, 2024@18:11 Collection sample: BLOOD [...] -=--=--=--=--=--=--=-- Performing Laboratory: Bacteriology Report Performed By: [facility] [CLIA# [id number]] [place] [address] [facility] Jun 08, 2024 11:00 AM LR MICROBIOLOGY RE PORT: Reporting Lab: [facility] [CLIA# [id number]] [place] [address] Accession [UID]: [id number] [[id number]] Received: Jun 08, 2024@11:00 Collection sample: URINE Collection date: Jun 08, 2024 11:00 Provider: MARYBETH POWELL Comment on specimen: urine Test(s) ordered: CULTURE & SUSCEPTIBILITY...... completed: Jun 09, 2024 * BACTERIOLOGY FINAL REPORT => Jun 09, 2024 19:12 TECH CODE: [id number] CULTURE RESULTS: ESCHERICHIA COLI - Quantity: >100,000 [...] -=--=--=--=--=--=--=-- Performing Laboratory: Bacteriology Report Performed By: [facility] [CLIA# [id number]] [facility] [place] [address] [facility]
--- OUTSIDE RECORDS SUMMARY | 2024-07-16 07:32 | XMS_ITS ---
[place] DAILY HOSPITALIZATION DATA [facility] HCS Encounter Summary Created on: July 16, 2024 MEG FLACA YAMIL : 1950 Sex: Male Author Name [facility] [place] [facility] [facility] [place] Address [address] [place] [address] Care Team Providers Care Pan Puller Name Role Phone JATINDER CABREAR Primary Care Provider Unavail able Insurance Providers: [...] PART A Sep 29, 2016 PART A [id number] [phone] JUDY WEAVER PATIENT Selected Encounter This section includes the information on record at [place] for the Encounter. Date/Time Encounter Type Encounter Description Reason Pro vider Source Jun 22, 2024 08:10 PM Inpatient Visit DAILY HOSPITALIZATION DATA HER,N[facility] IHE Encounter Template Text not used by [...] 27, 2024 07:00 [facility] Jun 27, 2024 07:30 AM [facility] Jun 27, 2024 08:00 [facility] Jul 03, 2024 05:55 AM [facility] Jul 13, 2024 08:15 AM AMBULATORY - NONE [facility] Active, Pending, and Scheduled Orders This section includes a listing of several types of active, pending, and scheduled orders, including clinic medications orders, diagnostic test orders, procedure orders and consult orders; where the start date of the order is 45 days before the date of the Encounter or 45 days after the date of theEncounter. The data comes from all [facility] facilities. Test Date/Time Test Type Test Details Facility Name May 28, 2024 12:00 AM Laboratory - Blood Bank Order TYPE & SCREEN - LAB BLOOD SP [facility] Jun 08, 2024 09:57 AM Laboratory - Chemi stry Order URINALYSIS URINE WC ONCE [facility] Jun 12, 2024 12:00 AM Laboratory - Chemi stry Order BNP PLASMA SP ONCE [facility] Jun 21, 2024 05:45 PM Laboratory - Blood Bank Order TYPE & SCREEN - LAB BLOOD [facility] Jul 03, 2024 12:00 AM Laboratory - Blood Bank Order TYPE & SCREEN - LAB BLOOD [facility] Jul 16, 2024 12:00 AM Laboratory - Chemi stry Order CBC BLOOD SP ONCE [facility] Jul 17, 2024 12:00 AM Laboratory - Chemi stry Order BASIC METABOLIC PANEL+MG PLASMA SP ONCE [facility] Lab Results: +/- 30 days of [...] Range Comment Jul 10, 2024 07:16 AM [facility] PHOSPHORUS Specimen Type: PLASMA No comment entered. Ordering Provider: JUANCARLOS ECHOLS Report Released Date/Time: Jul 09, 2024 12:23 PM Reporting Lab: [facility] [address] Performing Lab: [facility] [address] PHOSPHORUS 3.0 mg/dL 2.3-4.3 Jul 10, 2024 07:16 AM [facility] BASIC METABOLIC PANEL+MG Specimen Type: PLASMA No comment entered. Ordering Provider: JUANCARLOS ECHOLS S Report Released Date/Time: Jul 09, 2024 12:23 PM Reporting Lab: [facility] [address] Performing Lab: [facility] [address] CREATININE 0.7 mg/dL 0.7-1.2 UREA NITROGEN 27 mg/dL H 8-26 GLUCOSE 104 mg/dL H 70-100 SODIUM 133 mmol/L L 136-145 POTASSIUM 4.3 mmol/L 3.5-5.1 CHLORIDE 102 mmol/L 98-107 CO2 19 mmol/L L 22-29 CALCIUM 10.1 mg/dL 8.4-10.2 MAGNESIUM 1.9 mg/dL 1.6-2.6 ANION GAP 12 mmol/L 5-15 .CREAT EGFR(CKD-EPI) >90 >60 Jul 10, 2024 07:15 AM [facility] CBC Specimen Type: BLOOD No comment entered. Ordering Provider: JUANCARLOS ECHOLS S Report Released Date/Time: Jul 09, 2024 12:23 PM Reporting Lab: [facility] [address] Performing Lab: [facility] [address] WBC 18.8 H 4.0-11.0 RBC 5.08 4.60-6.20 HGB 15.9 g/dL 13.5-17.9 HCT 46.8 41.0-54.0 MCV 92.1 fL 80.0-100.0 MCH 31.3 pg 27.0-33.0 MCHC 34.0 g/dL 32.0-37.5 PLT 479 H 150-400 MPV 10.2 fL 9.1-13.0 RDW 13.7 11.5-14.5 Jul 09, 2024 07:08 AM [facility] CBC Specimen Type: BLOOD No comment entered. Ordering Provider: QUYNH WEISS AV Report Released Date/Time: Jul 08, 2024 06:18 PM Reporting Lab: [facility] [address] Performing Lab: [facility] [address] WBC 15.3 H 4.0-11.0 RBC 4.91 4.60-6.20 HGB 15.1 g/dL 13.5-17.9 HCT 45.7 41.0-54.0 MCV 93.1 fL 80.0-100.0 MCH 30.8 pg 27.0-33.0 MCHC 33.0 g/dL 32.0-37.5 PLT 443 H 150-400 MPV 10.0 fL 9.1-13.0 RDW 13.5 11.5-14.5 Jul 08, 2024 10:50 AM [facility] URINALYSIS Specimen Type: URINE No comment entered. Ordering Provider: KATELYNN PERSON Report Released Date/Time: Jul 08, 2024 08:41 AM Reporting Lab: [facility] [address] Performing Lab: [facility] [address] URINE COLOR YELLOW SPECIFIC GRAVITY >1.050 H [...] NEGATIVE NEGATIVE Jul 08, 2024 09:54 AM [facility] CBC Specimen Type: BLOOD Comment: Specimen received in Lab at: 0952 Ordering Provider: JUANCARLOS ECHOLS Report Released Date/Time: Jul 07, 2024 04:49 PM Reporting Lab: [facility] [address] Performing Lab: [facility] [address] WBC 17.5 H 4.0-11.0 RBC 4.88 4.60-6.20 HGB 14.9 g/dL 13.5-17.9 HCT 45.7 41.0-54.0 MCV 93.6 fL 80.0-100.0 MCH 30.5 pg 27.0-33.0 MCHC 32.6 g/dL 32.0-37.5 PLT 472 H 150-400 MPV 10.2 fL 9.1-13.0 RDW 13.7 11.5-14.5 Jul 08, 2024 09:54 AM [facility] PHOSPHORUS Specimen Type: PLASMA Comment: Specimen received in Lab at: 0952 Ordering Provider: JUANCARLOS ECHOLS Report Released Date/Time: Jul 07, 2024 04:49 PM Reporting Lab: [facility] [address] Performing Lab: [facility] [address] PHOSPHORUS 2.6 mg/dL 2.3-4.3 Jul 08, 2024 09:54 AM [facility] BASIC METABOLIC PANEL+MG Specimen Type: PLASMA Comment: Specimen received in Lab at: 0952 Ordering Provider: JUANCARLOS ECHOLS Report Released Date/Time: Jul 07, 2024 04:49 PM Reporting Lab: [facility] [address] Performing Lab: [facility] [address] CREATININE 0.9 mg/dL 0.7-1.2 UREA NITROGEN 26 mg/dL 8-26 GLUCOSE 128 mg/dL H 70-100 SODIUM 134 mmol/L L 136-145 POTASSIUM 3.4 mmol/L L 3.5-5.1 CHLORIDE 100 mmol/L 98-107 CO2 24 mmol/L 22-29 CALCIUM 9.8 mg/dL 8.4-10.2 MAGNESIUM 1.8 mg/dL 1.6-2.6 ANION GAP 10 mmol/L 5-15 .CREAT EGFR(CKD-EPI) >90 >60 Jul 07, 2024 02:00 PM [facility] C DIFF PANEL Specimen Type: FECES No comment entered. Ordering Provider: JEVON ZAZUETA Report Released Date/Time: Jul 07, 2024 12:26 PM Reporting Lab: [facility] [address] Performing Lab: [facility] [address] C DIFF TOX B GENE PCR NEGATIVE Negative Jul 07, 2024 07:41 AM [facility] PHOSPHORUS Specimen Type: PLASMA No comment entered. Ordering Provider: JEVON ZAZUETA Report Released Date/Time: Jul 06, 2024 03:44 PM Reporting Lab: [facility] [address] Performing Lab: [facility] [address] PHOSPHORUS 3.1 mg/dL 2.3-4.3 Jul 07, 2024 07:41 AM [facility] BASIC METABOLIC PANEL+MG Specimen Type: PLASMA No comment entered. Ordering Provider: JEVON ZAZUETA Report Released Date/Time: Jul 06, 2024 03:44 PM Reporting Lab: [facility] [address] Performing Lab: [facility] [address] CREATININE 0.9 mg/dL 0.7-1.2 UREA NITROGEN 20 mg/dL 8-26 GLUCOSE 157 mg/dL H 70-100 SODIUM 136 mmol/L 136-145 POTASSIUM 3.7 mmol/L 3.5-5.1 CHLORIDE 102 mmol/L 98-107 CO2 21 mmol/L L 22-29 CALCIUM 9.8 mg/dL 8.4-10.2 MAGNESIUM 1.9 mg/dL 1.6-2.6 ANION GAP 13 mmol/L 5-15 .CREAT EGFR(CKD-EPI) >90 >60 Jul 07, 2024 07:40 AM [facility] CBC Specimen Type: BLOOD No comment entered. Ordering Provider: JEVON ZAZUETA Report Released Date/Time: Jul 06, 2024 03:44 PM Reporting Lab: [facility] [address] Performing Lab: [facility] [address] WBC 21.2 H 4.0-11.0 RBC 5.09 4.60-6.20 HGB 15.9 g/dL 13.5-17.9 HCT 48.3 41.0-54.0 MCV 94.9 fL 80.0-100.0 MCH 31.2 pg 27.0-33.0 MCHC 32.9 g/dL 32.0-37.5 PLT 500 H 150-400 MPV 10.3 fL 9.1-13.0 RDW 13.6 11.5-14.5 Jul 06, 2024 07:21 AM [facility] CBC Specimen Type: BLOOD No comment entered. Ordering Provider: JEVON ZAZUETA Report Released Date/Time: Jul 05, 2024 01:22 PM Reporting Lab: [facility] [address] Performing Lab: [facility] [address] WBC 18.0 H 4.0-11.0 RBC 4.83 4.60-6.20 HGB 14.6 g/dL 13.5-17.9 HCT 45.5 41.0-54.0 MCV 94.2 fL 80.0-100.0 MCH 30.2 pg 27.0-33.0 MCHC 32.1 g/dL 32.0-37.5 PLT 368 150-400 MPV 10.4 fL 9.1-13.0 RDW 13.6 11.5-14.5 Jul 06, 2024 07:21 AM [facility] PHOSPHORUS Specimen Type: PLASMA No comment entered. Ordering Provider: JEVON ZAZUETA Report Released Date/Time: Jul 05, 2024 01:22 PM Reporting Lab: [facility] [address] Performing Lab: [facility] [address] PHOSPHORUS 3.6 mg/dL 2.3-4.3 Jul 06, 2024 07:21 AM [facility] BASIC METABOLIC PANEL+MG Specimen Type: PLASMA No comment entered. Ordering Provider: JEVON ZAZUETA Report Released Date/Time: Jul 05, 2024 01:22 PM Reporting Lab: [facility] [address] Performing Lab: [facility] [address] CREATININE 0.7 mg/dL 0.7-1.2 UREA NITROGEN 12 mg/dL 8-26 GLUCOSE 108 mg/dL H 70-100 SODIUM 138 mmol/L 136-145 POTASSIUM 3.4 mmol/L L 3.5-5.1 CHLORIDE 104 mmol/L 98-107 CO2 20 mmol/L L 22-29 CALCIUM 9.3 mg/dL 8.4-10.2 MAGNESIUM 1.9 mg/dL 1.6-2.6 ANION GAP 14 mmol/L 5-15 .CREAT EGFR(CKD-EPI) >90 >60 Jul 05, 2024 07:17 AM [facility] MAGNESIUM Specimen Type: PLASMA No comment entered. Ordering Provider: JUANCARLOS ECHOLS Report Released Date/Time: Jul 04, 2024 09:39 AM Reporting Lab: [facility] [address] Performing Lab: [facility] [address] MAGNESIUM 2.0 mg/dL 1.6-2.6 Jul 05, 2024 07:17 AM [facility] PHOSPHORUS Specimen Type: PLASMA No comment entered. Ordering Provider: JUANCARLOS ECHOLS S Report Released Date/Time: Jul 04, 2024 09:39 AM Reporting Lab: [facility] [address] Performing Lab: [facility] [address] PHOSPHORUS 2.0 mg/dL L 2.3-4.3 Jul 05, 2024 07:17 AM [facility] BASIC METABOLIC PANEL+MG Specimen Type: PLASMA No comment entered. Ordering Provider: JUANCARLOS ECHOLS S Report Released Date/Time: Jul 04, 2024 09:39 AM Reporting Lab: [facility] [address] Performing Lab: [facility] [address] CREATININE 0.7 mg/dL 0.7-1.2 UREA NITROGEN 12 mg/dL 8-26 GLUCOSE 84 mg/dL 70-100 SODIUM 135 mmol/L L 136-145 POTASSIUM 3.8 mmol/L 3.5-5.1 CHLORIDE 104 mmol/L 98-107 CO2 24 mmol/L 22-29 CALCIUM 9.3 mg/dL 8.4-10.2 MAGNESIUM 2.0 mg/dL 1.6-2.6 ANION GAP 7 mmol/L 5-15 .CREAT EGFR(CKD-EPI) >90 >60 Jul 05, 2024 07:16 AM [facility] CBC Specimen Type: BLOOD No comment entered. Ordering Provider: JUANCARLOS ECHOLS S Report Released Date/Time: Jul 04, 2024 09:39 AM Reporting Lab: [facility] [address] Performing Lab: [facility] [address] WBC 18.3 H 4.0-11.0 RBC 4.49 L 4.60-6.20 HGB 14.1 g/dL 13.5-17.9 HCT 43.4 41.0-54.0 MCV 96.7 fL 80.0-100.0 MCH 31.4 pg 27.0-33.0 MCHC 32.5 g/dL 32.0-37.5 PLT 317 150-400 MPV 10.0 fL 9.1-13.0 RDW 13.9 11.5-14.5 Jul 04, 2024 07:17 AM [facility] BASIC METABOLIC PANEL+MG Specimen Type: PLASMA No comment entered. Ordering Provider: GABINO CAMERON Report Released Date/Time: Jul 03, 2024 06:31 PM Reporting Lab: [facility] [address] Performing Lab: [facility] [address] CREATININE 0.7 mg/dL 0.7-1.2 UREA NITROGEN 16 mg/dL 8-26 GLUCOSE 129 mg/dL H 70-100 SODIUM 137 mmol/L 136-145 POTASSIUM 3.7 mmol/L 3.5-5.1 CHLORIDE 107 mmol/L 98-107 CO2 22 mmol/L 22-29 CALCIUM 9.0 mg/dL 8.4-10.2 MAGNESIUM 1.9 mg/dL 1.6-2.6 ANION GAP 8 mmol/L 5-15 .CREAT EGFR(CKD-EPI) >90 >60 Jul 04, 2024 07:17 AM [facility] PHOSPHORUS Specimen Type: PLASMA No comment entered. Ordering Provider: GABNIO CAMERON Report Released Date/Time: Jul 03, 2024 06:31 PM Reporting Lab: [facility] [address] Performing Lab: [facility] [address] PHOSPHORUS 2.8 mg/dL 2.3-4.3 Jul 04, 2024 07:16 AM [facility] CBC Specimen Type: BLOOD No comment entered. Ordering Provider: GABINO CAMERON Report Released Date/Time: Jul 03, 2024 06:31 PM Reporting Lab: [facility] [address] Performing Lab: [facility] [address] WBC 20.6 H 4.0-11.0 RBC 4.63 4.60-6.20 HGB 14.2 g/dL 13.5-17.9 HCT 43.4 41.0-54.0 MCV 93.7 fL 80.0-100.0 MCH 30.7 pg 27.0-33.0 MCHC 32.7 g/dL 32.0-37.5 PLT 329 150-400 MPV 10.4 fL 9.1-13.0 RDW 13.8 11.5-14.5 Jul 04, 2024 07:16 AM [facility] CBC & DIFF Specimen Type: BLOOD Comment: Manual Differential Performed Ordering Provider: GABINO CAMERON Report Released Date/Time: Jul 03, 2024 06:31 PM Reporting Lab: [facility] [address] Performing Lab: [facility] [address] WBC 20.6 H 4.0-11.0 RBC 4.63 4.60-6.20 [...] MORPHOLOGY PRESENT Jul 04, 2024 07:15 AM [facility] BNP Specimen Type: PLASMA No comment entered. Ordering Provider: GABINO CAMERON Report Released Date/Time: Jul 03, 2024 06:31 PM Reporting Lab: [facility] [address] Performing Lab: [facility] [address] BNP 292 pg/mL H <99 Jul 03, 2024 10:32 PM [facility] FINGERSTICK GLUCOSE Specimen Type: BLOOD Comment: Save Result Nurse Notified Ordering Provider: KATELYNN PERSON Report Released Date/Time: Jul 03, 2024 10:50 PM Reporting Lab: [facility] [address] Performing Lab: [facility] [address] FINGERSTICK GLUCOSE 126 mg/dL H 70-100 Jul 03, 2024 05:33 PM [facility] FINGERSTICK GLUCOSE Specimen Type: BLOOD Comment: Save Result Nurse Notified Ordering Provider: KATELYNN PERSON Report Released Date/Time: Jul 03, 2024 05:46 PM Reporting Lab: [facility] [address] Performing Lab: [facility] [address] FINGERSTICK GLUCOSE 141 mg/dL H 70-100 Jul 03, 2024 02:31 PM [facility] POC ABG/ELECTROLYTES Specimen Type: ARTERIAL BLOOD Comment: FIO2 = 97% Patient Temp: 36.0 C Sample Type = ARTERIAL Ordering Provider: MAZIN ARREDONDO Report Released Date/Time: Jul 03, 2024 01:48 PM Reporting Lab: [facility] [address] Performing Lab: [facility] [address] POC PH 7.387 7.35-7.45 POC PCO2 34.4 [...] H 80.0-105.0 Jul 03, 2024 01:05 PM [facility] POC ABG/ELECTROLYTES Specimen Type: ARTERIAL BLOOD Comment: FIO2 = 53% Patient Temp: 36.2 C Sample Type = ARTERIAL Ordering Provider: MAZIN ARREDONDO Report Released Date/Time: Jul 03, 2024 01:48 PM Reporting Lab: [facility] [address] Performing Lab: [facility] [address] POC PH 7.280 L 7.35-7.45 POC PCO2 [...] mm[Hg] 80.0-105.0 Jul 03, 2024 06:15 AM [facility] URINALYSIS Specimen Type: URINE No comment entered. Ordering Provider: MARYBETH POWELL Report Released Date/Time: Jun 12, 2024 04:01 PM Reporting Lab: [facility] [address] Performing Lab: [facility] [address] URINE COLOR YELLOW SPECIFIC GRAVITY 1.031 1.003-1.03 [...] 250 NEGATIVE Jul 03, 2024 06:13 AM [facility] CBC Specimen Type: BLOOD No comment entered. Ordering Provider: MARYBETH POWELL Report Released Date/Time: Jun 12, 2024 03:59 PM Reporting Lab: [facility] [address] Performing Lab: [facility] [address] WBC 15.8 H 4.0-11.0 RBC 5.11 4.60-6.20 HGB 16.1 g/dL 13.5-17.9 HCT 49.1 41.0-54.0 MCV 96.1 fL 80.0-100.0 MCH 31.5 pg 27.0-33.0 MCHC 32.8 g/dL 32.0-37.5 PLT 357 150-400 MPV 9.8 fL 9.1-13.0 RDW 13.7 11.5-14.5 Jun 24, 2024 09:50 AM [facility] BASIC METABOLIC PANEL+MG Specimen Type: PLASMA Comment: Specimen received in Lab at: 0948 Ordering Provider: JEVON ZAZUETA Report Released Date/Time: Jun 23, 2024 06:07 PM Reporting Lab: [facility] [address] Performing Lab: [facility] [address] CREATININE 0.8 mg/dL 0.7-1.2 UREA NITROGEN 13 mg/dL 8-26 GLUCOSE 135 mg/dL H 70-100 SODIUM 135 mmol/L L 136-145 POTASSIUM 3.6 mmol/L 3.5-5.1 CHLORIDE 103 mmol/L 98-107 CO2 24 mmol/L 22-29 CALCIUM 9.2 mg/dL 8.4-10.2 MAGNESIUM 1.9 mg/dL 1.6-2.6 ANION GAP 8 mmol/L 5-15 .CREAT EGFR(CKD-EPI) >90 >60 Jun 24, 2024 09:50 AM [facility] CBC Specimen Type: BLOOD Comment: Specimen received in Lab at: 0948 Ordering Provider: JEVON ZAZUETA Report Released Date/Time: Jun 23, 2024 06:07 PM Reporting Lab: [facility] [address] Performing Lab: [facility] [address] WBC 15.5 H 4.0-11.0 RBC 4.93 4.60-6.20 HGB 15.2 g/dL 13.5-17.9 HCT 46.5 41.0-54.0 MCV 94.3 fL 80.0-100.0 MCH 30.8 pg 27.0-33.0 MCHC 32.7 g/dL 32.0-37.5 PLT 223 150-400 MPV 11.4 fL 9.1-13.0 RDW 13.9 11.5-14.5 Jun 23, 2024 07:52 AM [facility] COMPREHENSIVE METABOLIC PANEL+MG Specimen Type: PLASMA No comment entered. Ordering Provider: JEVON ZAZUETA Report Released Date/Time: Jun 22, 2024 05:51 PM Reporting Lab: [facility] [address] Performing Lab: [facility] [address] CREATININE 0.7 mg/dL 0.7-1.2 UREA NITROGEN 16 [...] >90 >60 Jun 23, 2024 07:52 AM [facility] CBC & DIFF Specimen Type: BLOOD Comment: Automated Differential Performed Ordering Provider: JEVON ZAZUETA Report Released Date/Time: Jun 22, 2024 05:51 PM Reporting Lab: [facility] [address] Performing Lab: [facility] [address] WBC 14.9 H 4.0-11.0 RBC 5.09 4.60-6.20 [...] 0.1 0.0-0.1 Jun 22, 2024 06:10 PM [facility] CBC Specimen Type: BLOOD No comment entered. Ordering Provider: JEVON ZAZUETA Report Released Date/Time: Jun 22, 2024 05:51 PM Reporting Lab: [facility] [address] Performing Lab: [facility] [address] WBC 16.9 H 4.0-11.0 RBC 5.28 4.60-6.20 HGB 16.9 g/dL 13.5-17.9 HCT 50.4 41.0-54.0 MCV 95.5 fL 80.0-100.0 MCH 32.0 pg 27.0-33.0 MCHC 33.5 g/dL 32.0-37.5 PLT 223 150-400 MPV 10.9 fL 9.1-13.0 RDW 14.0 11.5-14.5 Jun 22, 2024 06:10 PM [facility] COMPREHENSIVE METABOLIC PANEL+MG Specimen Type: PLASMA No comment entered. Ordering Provider: JEVON ZAZUETA Report Released Date/Time: Jun 22, 2024 05:51 PM Reporting Lab: [facility] [address] Performing Lab: [facility] [address] CREATININE 0.7 mg/dL 0.7-1.2 UREA NITROGEN 17 [...] >90 >60 Jun 21, 2024 06:48 PM [facility] URINALYSIS Specimen Type: URINE No comment entered. Ordering Provider: DELIA MARTINEZ Report Released Date/Time: Jun 21, 2024 05:45 PM Reporting Lab: [facility] [address] Performing Lab: [facility] [address] URINE COLOR YELLOW SPECIFIC GRAVITY 1.041 H [...] 500 NEGATIVE Jun 21, 2024 05:34 PM [facility] POC CREATININE Specimen Type: BLOOD No comment entered. Ordering Provider: DELIA MARTINEZ Report Released Date/Time: Jun 21, 2024 06:07 PM Reporting Lab: [facility] [address] Performing Lab: [facility] [address] POC CREATININE 1.1 mg/dL 0.6-1.3 Jun 21, 2024 05:30 PM [facility] POC ABG/LACTATE Specimen Type: VENOUS BLOOD No comment entered. Ordering Provider: DELIA MARTINEZ Report Released Date/Time: Jun 21, 2024 06:07 PM Reporting Lab: [facility] [address] Performing Lab: [facility] [address] POC PH 7.470 H 7.31-7.41 POC PCO2 31.2 mm[Hg] L 41.00-51 .0 0 POC PO2 46 mm[Hg] H 35.0-40.0 POC TCO2 24 mmol/L 24.0-29.0 POC HCO3 22.7 mmol/L L 23.0-28.0 POC BE ECT -1 mmol/L POC SO2 85 H 70-75 POC LACTATE 1.85 mmol/L 0.90-1.70 Jun 21, 2024 05:24 PM [facility] PROTHROMBIN TIME/INR Specimen Type: PLASMA No comment entered. Ordering Provider: DELIA MARTINEZ Report Released Date/Time: Jun 21, 2024 05:30 PM Reporting Lab: [facility] [address] Performing Lab: [facility] [address] .INR 1.2 H 0.8-1.1 .PT 13.9 s H 9.4-12.5 Jun 21, 2024 05:24 PM [facility] LIPASE Specimen Type: PLASMA No comment entered. Ordering Provider: DELIA MARTINEZ Report Released Date/Time: Jun 21, 2024 05:30 PM Reporting Lab: [facility] [address] Performing Lab: [facility] [address] LIPASE 32 U/L <60 Jun 21, 2024 05:24 PM [facility] EXTRA GOLD GEL TUBE Specimen Type: SERUM No comment entered. Ordering Provider: DELIA MARTINEZ Report Released Date/Time: Jun 21, 2024 05:41 PM Reporting Lab: [facility] [address] Performing Lab: [facility] [address] EXTRA GOLD GEL TUBE RECEIVED Jun 21, 2024 05:24 PM [facility] COMPREHENSIVE METABOLIC PANEL+MG Specimen Type: PLASMA No comment entered. Ordering Provider: DELIA MARTINEZ Report Released Date/Time: Jun 21, 2024 05:30 PM Reporting Lab: [facility] [address] Performing Lab: [facility] [phone] CREATININE 0.9 mg/dL 0.7-1.2 UREA NITROGEN 29 [...] mg/dL <0.5 Jun 21, 2024 05:24 PM [facility] CBC & DIFF Specimen Type: BLOOD Comment: Manual Differential Performed Ordering Provider: DELIA MARTINEZ Report Released Date/Time: Jun 21, 2024 05:30 PM Reporting Lab: [facility] [phone] Performing Lab: [facility] [phone] WBC 21.3 H 4.0-11.0 RBC 5.48 4.60-6.20 [...] MORPHOLOGY PRESENT Jun 08, 2024 10:59 AM [facility] PROTHROMBIN TIME/INR Specimen Type: PLASMA No comment entered. Ordering Provider: MARYBETH POWELL Report Released Date/Time: May 28, 2024 09:02 AM Reporting Lab: [facility] [phone] Performing Lab: [facility] [phone] .INR 1.0 0.8-1.1 .PT 11.8 s 9.4-12.5 Jun 08, 2024 10:59 AM [facility] CBC Specimen Type: BLOOD No comment entered. Ordering Provider: MARYBETH POWELL Report Released Date/Time: May 28, 2024 09:02 AM Reporting Lab: [facility] [phone] Performing Lab: [facility] [address] WBC 16.1 H 4.0-11.0 RBC 5.02 4.60-6.20 HGB 16.0 g/dL 13.5-17.9 HCT 47.1 41.0-54.0 MCV 93.8 fL 80.0-100.0 MCH 31.9 pg 27.0-33.0 MCHC 34.0 g/dL 32.0-37.5 PLT 228 150-400 MPV 10.3 fL 9.1-13.0 RDW 14.6 H 11.5-14.5 Jun 08, 2024 10:59 AM [facility] HEMOGLOBIN A1C Specimen Type: BLOOD Comment: [...] AM Reporting Lab: [facility] [phone] Performing Lab: [facility] [phone] HEMOGLOBIN A1C 4.9 4.0-6.0 Jun 08, 2024 10:59 AM [facility] BASIC METABOLIC PANEL+MG Specimen Type: PLASMA No comment entered. Ordering Provider: MARYBETH POWELL Report Released Date/Time: May 28, 2024 09:02 AM Reporting Lab: [facility] [phone] Performing Lab: [facility] [phone] CREATININE 0.9 mg/dL 0.7-1.2 UREA NITROGEN 15 [...] 2024 01:40 PM 86 116/59 18 0 [facility] Jun 22, 2024 04:22 AM 7 [facility] Jun 22, 2024 12:22 AM 5 [facility] Social History: Smoking Status (Most [...] 15, 2024 08:30 AM VA-TOBACCO FORMER USER [facility] Tobacco Use History This section includes a history of the smoking, or tobacco-related health factors, that were collected on or before the date of the Encounter. The data comes from the [place] facility where the Encounter took place. Date/Time Smoking Status/Tobacco Use Comment F tiera May 15, 2024 08:30 AM VA-TOBACCO QUIT 15 YRS OR MORE [facility] May 06, 2023 11:30 AM VA-TOBACCO FORMER USER [facility] May 06, 2023 11:30 AM VA-TOBACCO QUIT 15 YRS OR MORE [facility] Jun 04, 2022 09:00 AM VA-TOBACCO FORMER USER [facility] Jun 04, 2022 09:00 AM VA-TOBACCO QUIT 15 YRS OR MORE [facility] Jul 10, 2021 08:00 AM VA-TOBACCO FORMER USER [facility] Jul 10, 2021 08:00 AM VA-TOBACCO QUIT 5 TO < 15 YRS [facility] May 23, 2020 08:30 AM VA-TOBACCO FORMER USER [facility] May 23, 2020 08:30 AM VA-TOBACCO QUIT 5 TO < 15 YRS [facility] Mar 20, 2019 04:03 PM VA-TOBACCO FORMER USER [facility] Mar 20, 2019 04:03 PM VA-TOBACCO QUIT 5 TO < 15 YRS [facility] Mar 21, 2018 08:13 AM FORMER TOBACCO USER 7Y OR GREATE R [facility] Feb 24, 2017 09:24 AM FORMER TOBACCO USER 7Y OR GREATE R [facility] January 07, 2016 08:01 AM FORMER TOBACCO USE >1Y <7Y [facility] Feb 03, 2015 07:58 AM FORMER TOBACCO USE <1Y [facility] Feb 26, 2014 08:41 AM CURRENT TOBACCO USER [facility] May 13, 2011 01:45 PM CURRENT TOBACCO USER [facility] Advance Directives: All historical and current [...] 2 VIEWS PA AND LAT: FLACA WEAVER [id number] -1950 M Exm Date: JUL 08, 2024@10:09 Req Phys: KATELYNN PERSON Pat Loc: G/07-08-2024@11:49 Img Loc: MAIN X-RAY Service: [place] [address] (Case 24 COMPLETE) CHEST 2 VIEWS PA AND LAT (RAD Detailed) CPT:38764 Reason for Study: Uptrending WBC, POD 5 [...] 08, 2024 Date Verified: JUL 08, 2024 Nurse Assistant E-Sig: Report: CHEST 2 VIEWS PA AND [...] cardiopulmonary disease. READING PHYSICIAN: Sarbjit Vaughn M.D. -[id number] 07/08/2024 12:46 [facility] National Teleradiology Program [phone] (For Medical Practitioner Use Only) Attention Patients / Veterans: If you have questions or concerns about these test results, please contact your ordering provider or primary care team. Primary Interpreting Staff: RADIOLOGY,OUTSIDE SERVICE, Staff Physician / RADIOLOGY,OUTSIDE SERVICE [facility] Jul 08, 2024 10:[address] (AP) ABDOMEN/PELVIS W CONTRAST: FLACA WEAVER [id number] -1950 M Exm Date: JUL 08, 2024@10:00 Req Phys: KATELYNN PERSON Pat Loc: 2KG07-08-2024@12:07 Img Loc: CT IMAGING Service: [place] [address] (Case 22 COMPLETE) CT (AP) ABDOMEN/PELVIS W CONTRAST(CT Detailed) CPT:62172 Contrast Media : Non-ionic Iodinated Reason for [...] PLASMA .CREAT EGFR(CKD-E >90 Ref: >=60 Allergies: ([place] only) TERAZOSIN (Mar 13, 2015) Report Status: Verified Date Reported: JUL 08, 2024 Date Verified: JUL 08, 2024 Nurse Assistant E-Sig: Report: CT (AP) ABDOMEN/PELVIS W CONTRAST [...] as noted above READING PHYSICIAN: Celestino Blanc -[phone] 07/08/2024 13:04 [facility] National Teleradiology Program [phone] (For Medical Practitioner Use Only) Attention Patients / Veterans: If you have questions or concerns about these test results, please contact your ordering provider or primary care team. Primary Interpreting Staff: RADIOLOGY,OUTSIDE SERVICE, Staff Physician / RADIOLOGY,OUTSIDE SERVICE [facility] Jun 22, 2024 11:49 AM ABSCESS DRAIN PLACEMENT PERITONEAL (P): FLACA WEAVER [id number] -1950 M Exm Date: JUN 22, 2024@11:49 Req Phys: ANGELA HOLDEN Loc: 06-22-2024@17:14 Img Loc: INTERVENTIONAL RADIOLOGY Service: [place] [address] (Case [id number] COMPLETE) IR PERITONEAL/RETROPERITONEAL PER(ANI Detailed) CPT:07246 Reason for Study: diverticulitis with abscess (Case 3570 COMPLETE) IR MOD SEDATION 10-22 MIN (ANI Detailed) CPT:91050 Clinical History: IS NOT under investigation for COVID-19 or is COVID-19 negative 73 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 please place abscess drain. Contact number for responsible provider who can be reached for any questions or notifications of critical findings: [phone] n/a LAST CREATININE 0.9 (06/21/24) Report Status: Verified Date Reported: JUN 22, 2024 Date Verified: JUN 22, 2024 Nurse Assistant E-Sig:/ES/LISA PENDLETON MD Report: PROCEDURES: Placement of [...] Using real-time CT fluoroscopy, a 5 Norwegian Fast Orientationesis catheter was advanced into the collection in the left pelvis. A wire was coiled in the collection. The tract into the collection was dilated to accommodate the 12 Norwegian locking pigtail drainage catheter. There was return [...] Primary Interpreting Staff: LISA PENDLETON MD, RADIOLOGIST (Nurse Assistant) /JRLISA [facility] Jun 22, 2024 11:[address] NEEDLE PLACEMENT (P): FLACA WEAVER [id number] -1950 M Exm Date: JUN 22, 2024@11:48 Req Phys: ADINAANGELA Mcfarlane Amanda Loc: [facility]06-22-2024@17:14 Img Loc: CT IMAGING Service: [place] [address] (Case [id number] COMPLETE) CT SCAN FOR NEEDLE PLACEMENT (CT Detailed) CPT:88565 Reason for Study: l pelvic abscess drain Clinical History: Report Status: Verified Date Reported: JUN 22, 2024 Date Verified: JUN 22, 2024 Nurse Assistant E-Sig:/ES/LISA PENDLETON MD Report: PROCEDURES: Placement of [...] Using real-time CT fluoroscopy, a 5 Norwegian Fast Orientationesis catheter was advanced into the collection in the left pelvis. A wire was coiled in the collection. The tract into the collection was dilated to accommodate the 12 Norwegian locking pigtail drainage catheter. There was return [...] Primary Interpreting Staff: LISA PENDLETON MD, RADIOLOGIST (Nurse Assistant) /JRT LISA PENDLETON [facility] Jun 21, 2024 06:[address] (AP) ABDOMEN/PELVIS (P): FLACA WEAVER [id number] -1950 M Exm Date: JUN 21, 2024@18:09 Req Phys: DELIA MARTINEZ Loc: [facility] EMERGENCY DEPT WALK-IN (Re Img Loc: CT IMAGING Service: [place] [address] (Case [id number] COMPLETE) CT (AP) ABDOMEN/PELVIS W CONTRAST(CT Detailed) CPT:24356 Contrast Media : Non-ionic Iodinated Reason for [...] PLASMA .CREAT EGFR(CKD-E >90 Ref: >=60 Allergies: ([place] only) TERAZOSIN (Mar 13, 2015) Defer to [...] 21, 2024 Date Verified: JUN 21, 2024 Nurse Assistant E-Sig:/ES/CARLOS A CUNNINGHAM DO Report: EXAMINATION: CT [...] Interpreting Staff: CARLOS A CUNNINGHAM DO, RADIOLOGIST (Nurse Assistant) /CARLOS A ROWELL [facility] May 25, 2024 09:00 AM IR FISTULOGRAM OR SINOGRAM : FLACA WEAVER [id number] -1950 M Exm Date: MAY 25, 2024@09:00 Req Phys: AMINTA PRUITT Pat Loc: [facility] XRAY INTERVENTIONAL RADIO Img Loc: INTERVENTIONAL RADIOLOGY Service: [place] [address] (Case [id number] COMPLETE) IR FISTULOGRAM OR SINOGRAM (ANI Detailed) CPT:23172 Contrast Media : unspecified contrast media Reason for Study: s/p drain placement for diverticular abscess- assess for drain Clinical History: [facility] IS NOT under investigation for COVID-19 or [...] 25, 2024 Date Verified: MAY 25, 2024 Nurse Assistant E-Sig:/ES/DAVID BURNS MD Report: PROCEDURES 05/25/2024 9:48 [...] Primary Interpreting Staff: DAVID BURNS MD, RADIOLOGIST (Nurse Assistant) /CSS DAVID BURNS [facility] May 25, 2024 08:[address] (AP) ABDOMEN/PELVIS (P): FLACA WEAVER [id number] -1950 M Exm Date: MAY 25, 2024@08:23 Req Phys: DAVID BURNS Pat Loc: [facility]SP XRAY INTERVENTIONAL RADIO Img Loc: CT IMAGING Service: [place] [address] (Case [id number] COMPLETE) CT (AP) ABDOMEN/PELVIS W/O CONTRA(CT Detailed) CPT:19762 Reason for Study: assess abscess and possible [...] PLASMA .CREAT EGFR(CKD-E >90 Ref: >=60 Allergies: ([place] only) TERAZOSIN (Mar 13, 2015) Report Status: Verified Date Reported: MAY 25, 2024 Date Verified: MAY 25, 2024 Nurse Assistant E-Sig:/ES/JESSENIA GOODMAN MD Report: EXAM: CT abdomen and pelvis without intravenous contrast. 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 TECHNIQUE: Helical acquisition of image data was performed for the abdomen and pelvis without intravenous contrast. Dose: 512.57 mGy*cm COMPARISON: CT abdomen pelvis with contrast 05/11/[address] abdomen pelvis 04/23/2024.; CT abdomen pelvis 05/05/2020 FINDINGS: ADMINISTRATIVE ASSISTANT RECEPTIONIST: Pigtail catheter projecting over the left hemipelvis [...] Primary Interpreting Staff: JESSENIA GOODMAN MD, RADIOLOGIST (Nurse Assistant) Primary Interpreting Resident: YOHANNES MELO DO, LOOM DOFFER /CMN JESSENIA GOODMAN [facility] Pathology Reports: +/- 30 days of [...] COSIGNER: URGENCY: STATUS: COMPLETED $APHDR Reporting Lab: [facility] [CLIA# [id number]] [place] [address] - - - - - - - [...] - PATHOLOGY REPORT Accession No. [id number] - - - - - - - [...] - PATHOLOGY REPORT Accession No. [id number] - - - - - - - [...] Second circumferential surgical margin, en face; E-F: Caretaker diverticula; G: Caretaker section of mesentery; H: Random insurance healthcare [...] One colonic tissue ring, bisected transversely. [facility]. [facility]: Microscopic examination performed. DIAGNOSIS: 1. Colon, sigmoid, sigmoidectomy-- - Diverticulosis with perforation and focal abscess formation 2. Colon, anastomotic rings, excision-- - Viable colonic mucosa without diagnostic abnormality /es/ EDUARDO PALOMARES MD STAFF PATHOLOGIST Signed Jul 06, 2024@10:40 Performing Laboratory: Surgical Pathology Report Performed By: [facility] [CLIA# [id number]] [place] [address] $FTR - - - - - - [...] - - FLACA WEAVER STANDARD FORM 515 ID:[id number] SEX:M :1950 AGE: 73 LOC:59169 ADM:Jun DX:DIVERTICULITIS PCP: Jatinder Cabrera /alexi/ EDUARDO PALOMARES MD STAFF PATHOLOGIST Signed: 07/06/2024 10:40 EDUARDO PALOMARES [facility] Jun 22, 2024 01:15 PM LR MICROBIOLOGY RE PORT: Reporting Lab: [facility] [CLIA# [id number]] [place] [address] Accession [UID]: [id number] [[id number]] Received: Jun 22, 2024@13:38 Collection sample: FLUID Collection date: Jun 22, 2024 13:15 Provider: ANGELA HOLDEN Comment on specimen: LLQ ABSCESS, RECEIVED IN ANAEROBIC TRANSPORT VIAL Test(s) ordered: GRAM STAIN.................... completed: Jun 22, 2024 15:03 CULTURE & SUSCEPTIBILITY...... completed: Jun 25, 2024 * BACTERIOLOGY FINAL REPORT => Jun 25, 2024 10:56 TECH CODE: [id number] GRAM STAIN: DIRECT SMEAR of specimen before [...] -=--=--=--=--=--=--=-- Performing Laboratory: Bacteriology Report Performed By: [facility] [CLIA# [id number]] [place] [address] [facility] Jun 22, 2024 01:15 PM LR MICROBIOLOGY RE PORT: Reporting Lab: [facility] [CLIA# [id number]] [address] Accession [UID]: [id number] [[id number]] Received: Jun 22, 2024@13:38 Collection sample: FLUID Collection date: Jun 22, 2024 13:15 Provider: ANGELA HOLDEN Comment on specimen: LLQ ABSCESS, RECEIVED IN ANAEROBIC TRANSPORT VIAL Test(s) ordered: ANAEROBIC CULTURE............. completed: Jun 28, 2024 * BACTERIOLOGY FINAL REPORT => Jun 28, 2024 10:08 [facility] CODE: [id number] CULTURE RESULTS: HEAVY GROWTH MIXED ANAEROBES Comment: including the followin+ Bacteroides fragilis 4+ Bacteroides vulgatus 4+ Clostridium innocuum Beta-lactamase negative 4+ Bacteroides caccae 4+ Parvimonas micra 4+ Bacteroides uniformis 4+ Gemella morbillorum 4+ anaerobic small, Gram Positive Rods 4+ Bacteroides thetaiotaomicron Standard workup is now complete. Bacteriology Remark(s): THIS REPORT IS FINAL =--=--=--=--=--=--=--=--=--= --=--=--=--=--=--=--=--=--=- -=--=--=--=--=--=--=-- Performing Laboratory: Bacteriology Report Performed By: [facility] [IA# [id number]] [place] [address] [facility] Jun 21, 2024 06:12 PM LR MICROBIOLOGY RE PORT: Reporting Lab: [facility] [IA# [id number]] [place] [address] Accession [UID]: [id number] [[id number]] Received: Jun 21, 2024@18:12 Collection sample: BLOOD [...] -=--=--=--=--=--=--=-- Performing Laboratory: Bacteriology Report Performed By: [facility] [IA# [id number]] [place] [address] [facility] Jun 21, 2024 06:11 PM LR MICROBIOLOGY RE PORT: Reporting Lab: [facility] [IA# [id number]] [place] [address] Accession [UID]: [id number] [[id number]] Received: Jun 21, 2024@18:11 Collection sample: BLOOD [...] -=--=--=--=--=--=--=-- Performing Laboratory: Bacteriology Report Performed By: [facility] [CLIA# [id number]] [place] [address] [facility] Jun 08, 2024 11:00 AM LR MICROBIOLOGY RE PORT: Reporting Lab: [facility] [CLIA# [id number]] [place] [address] Accession [UID]: [id number] [[id number]] Received: Jun 08, 2024@11:00 Collection sample: URINE Collection date: Jun 08, 2024 11:00 Provider: MARYBETH POWELL Comment on specimen: urine Test(s) ordered: CULTURE & SUSCEPTIBILITY...... completed: Jun 09, 2024 * BACTERIOLOGY FINAL REPORT => Jun 09, 2024 19:12 TECH CODE: [id number] CULTURE RESULTS: ESCHERICHIA COLI - Quantity: >100,000 [...] -=--=--=--=--=--=--=-- Performing Laboratory: Bacteriology Report Performed By: [facility] [CLIA# [id number]] [place] [address] [facility]
--- OUTSIDE RECORDS SUMMARY | 2024-07-16 07:32 | XMS_ITS ---
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 Date/Time Encounter Type Encounter Description Reason Pro vider Source Jun 22, 2024 06:45 PM Inpatient Visit DAILY HOSPITALIZATION DATA [facility] Encounter Template Text not used by [place] [...] 07:00 AM [facility] Jun 27, 2024 07:30 AM [facility] Jun 27, 2024 08:00 AM AMBULATORY - MEDICINE [facility] Jul 03, 2024 05:55 AM AMBULATORY - NONE [facility] Jul 13, 2024 08:15 AM AMBULATORY - NONE [facility] Active, Pending, and Scheduled Orders This section includes a listing of several types of active, pending, and scheduled orders, including clinic medications orders, diagnostic test orders, procedure orders and consult orders; where the start date of the order is 45 days before the date of the Encounter or 45 days after the date of theEncounter. The data comes from all [facility] facilities. Test Date/Time Test Type Test Details Facility Name May 28, 2024 12:00 AM Laboratory - Blood Bank Order TYPE & SCREEN - LAB BLOOD SP [facility] Jun 08, 2024 09:57 AM Laboratory - Chemi stry Order URINALYSIS URINE WC ONCE [facility] Jun 12, 2024 12:00 AM Laboratory - Chemi stry Order BNP PLASMA SP ONCE [facility] Jun 21, 2024 05:45 PM Laboratory - Blood Bank Order TYPE & SCREEN - LAB BLOOD [facility] Jul 03, 2024 12:00 AM Laboratory - Blood Bank Order TYPE & SCREEN - LAB BLOOD [facility] Jul 16, 2024 12:00 AM Laboratory - Chemi stry Order CBC BLOOD SP ONCE [facility] Jul 17, 2024 12:00 AM Laboratory - Chemi stry Order BASIC METABOLIC PANEL+MG PLASMA SP ONCE [facility] Lab Results: +/- 30 days of [...] Range Comment Jul 10, 2024 07:16 AM [facility] PHOSPHORUS Specimen Type: PLASMA No comment entered. Ordering Provider: JUANCARLOS ECHOLS Report Released Date/Time: Jul 09, 2024 12:23 PM Reporting Lab: [facility] [address] Performing Lab: [facility] [address] PHOSPHORUS 3.0 mg/dL 2.3-4.3 Jul 10, 2024 07:16 AM [facility] BASIC METABOLIC PANEL+MG Specimen Type: PLASMA No comment entered. Ordering Provider: JUANCARLOS ECHOLS Report Released Date/Time: Jul 09, 2024 12:23 PM Reporting Lab: [facility] [address] Performing Lab: [facility] [address] CREATININE 0.7 mg/dL 0.7-1.2 UREA NITROGEN 27 mg/dL H 8-26 GLUCOSE 104 mg/dL H 70-100 SODIUM 133 mmol/L L 136-145 POTASSIUM 4.3 mmol/L 3.5-5.1 CHLORIDE 102 mmol/L 98-107 CO2 19 mmol/L L 22-29 CALCIUM 10.1 mg/dL 8.4-10.2 MAGNESIUM 1.9 mg/dL 1.6-2.6 ANION GAP 12 mmol/L 5-15 .CREAT EGFR(CKD-EPI) >90 >60 Jul 10, 2024 07:15 AM [facility] CBC Specimen Type: BLOOD No comment entered. Ordering Provider: JUANCARLOS ECHOLS S Report Released Date/Time: Jul 09, 2024 12:23 PM Reporting Lab: [facility] [address] Performing Lab: [facility] [address] WBC 18.8 H 4.0-11.0 RBC 5.08 4.60-6.20 HGB 15.9 g/dL 13.5-17.9 HCT 46.8 41.0-54.0 MCV 92.1 fL 80.0-100.0 MCH 31.3 pg 27.0-33.0 MCHC 34.0 g/dL 32.0-37.5 PLT 479 H 150-400 MPV 10.2 fL 9.1-13.0 RDW 13.7 11.5-14.5 Jul 09, 2024 07:08 AM [facility] CBC Specimen Type: BLOOD No comment entered. Ordering Provider: QUYNH WEISS AV Report Released Date/Time: Jul 08, 2024 06:18 PM Reporting Lab: [facility] [address] Performing Lab: [facility] [address] WBC 15.3 H 4.0-11.0 RBC 4.91 4.60-6.20 HGB 15.1 g/dL 13.5-17.9 HCT 45.7 41.0-54.0 MCV 93.1 fL 80.0-100.0 MCH 30.8 pg 27.0-33.0 MCHC 33.0 g/dL 32.0-37.5 PLT 443 H 150-400 MPV 10.0 fL 9.1-13.0 RDW 13.5 11.5-14.5 Jul 08, 2024 10:50 AM [facility] URINALYSIS Specimen Type: URINE No comment entered. Ordering Provider: KATELYNN PERSON Report Released Date/Time: Jul 08, 2024 08:41 AM Reporting Lab: [facility] [address] Performing Lab: [facility] [address] URINE COLOR YELLOW SPECIFIC GRAVITY >1.050 H [...] NEGATIVE NEGATIVE Jul 08, 2024 09:54 AM [facility] CBC Specimen Type: BLOOD Comment: Specimen received in Lab at: 0952 Ordering Provider: JUANCARLOS ECHOLS Report Released Date/Time: Jul 07, 2024 04:49 PM Reporting Lab: [facility] [address] Performing Lab: [facility] [address] WBC 17.5 H 4.0-11.0 RBC 4.88 4.60-6.20 HGB 14.9 g/dL 13.5-17.9 HCT 45.7 41.0-54.0 MCV 93.6 fL 80.0-100.0 MCH 30.5 pg 27.0-33.0 MCHC 32.6 g/dL 32.0-37.5 PLT 472 H 150-400 MPV 10.2 fL 9.1-13.0 RDW 13.7 11.5-14.5 Jul 08, 2024 09:54 AM [facility] PHOSPHORUS Specimen Type: PLASMA Comment: Specimen received in Lab at: 0952 Ordering Provider: JUANCARLOS ECHOLS Report Released Date/Time: Jul 07, 2024 04:49 PM Reporting Lab: [facility] [address] Performing Lab: [facility] [address] PHOSPHORUS 2.6 mg/dL 2.3-4.3 Jul 08, 2024 09:54 AM [facility] BASIC METABOLIC PANEL+MG Specimen Type: PLASMA Comment: Specimen received in Lab at: 0952 Ordering Provider: JUANCARLOS ECHOLS Report Released Date/Time: Jul 07, 2024 04:49 PM Reporting Lab: [facility] [address] Performing Lab: [facility] [address] CREATININE 0.9 mg/dL 0.7-1.2 UREA NITROGEN 26 mg/dL 8-26 GLUCOSE 128 mg/dL H 70-100 SODIUM 134 mmol/L L 136-145 POTASSIUM 3.4 mmol/L L 3.5-5.1 CHLORIDE 100 mmol/L 98-107 CO2 24 mmol/L 22-29 CALCIUM 9.8 mg/dL 8.4-10.2 MAGNESIUM 1.8 mg/dL 1.6-2.6 ANION GAP 10 mmol/L 5-15 .CREAT EGFR(CKD-EPI) >90 >60 Jul 07, 2024 02:00 PM [facility] C DIFF PANEL Specimen Type: FECES No comment entered. Ordering Provider: JEVON ZAZUETA Report Released Date/Time: Jul 07, 2024 12:26 PM Reporting Lab: [facility] [address] Performing Lab: [facility] [address] C DIFF TOX B GENE PCR NEGATIVE Negative Jul 07, 2024 07:41 AM [facility] PHOSPHORUS Specimen Type: PLASMA No comment entered. Ordering Provider: JEVON ZAZUETA Report Released Date/Time: Jul 06, 2024 03:44 PM Reporting Lab: [facility] [address] Performing Lab: [facility] [address] PHOSPHORUS 3.1 mg/dL 2.3-4.3 Jul 07, 2024 07:41 AM [facility] BASIC METABOLIC PANEL+MG Specimen Type: PLASMA No comment entered. Ordering Provider: JEVON ZAZUETA Report Released Date/Time: Jul 06, 2024 03:44 PM Reporting Lab: [facility] [address] Performing Lab: [facility] [address] CREATININE 0.9 mg/dL 0.7-1.2 UREA NITROGEN 20 mg/dL 8-26 GLUCOSE 157 mg/dL H 70-100 SODIUM 136 mmol/L 136-145 POTASSIUM 3.7 mmol/L 3.5-5.1 CHLORIDE 102 mmol/L 98-107 CO2 21 mmol/L L 22-29 CALCIUM 9.8 mg/dL 8.4-10.2 MAGNESIUM 1.9 mg/dL 1.6-2.6 ANION GAP 13 mmol/L 5-15 .CREAT EGFR(CKD-EPI) >90 >60 Jul 07, 2024 07:40 AM [facility] CBC Specimen Type: BLOOD No comment entered. Ordering Provider: JEVON ZAZUETA Report Released Date/Time: Jul 06, 2024 03:44 PM Reporting Lab: [facility] [address] Performing Lab: [facility] [address] WBC 21.2 H 4.0-11.0 RBC 5.09 4.60-6.20 HGB 15.9 g/dL 13.5-17.9 HCT 48.3 41.0-54.0 MCV 94.9 fL 80.0-100.0 MCH 31.2 pg 27.0-33.0 MCHC 32.9 g/dL 32.0-37.5 PLT 500 H 150-400 MPV 10.3 fL 9.1-13.0 RDW 13.6 11.5-14.5 Jul 06, 2024 07:21 AM [facility] CBC Specimen Type: BLOOD No comment entered. Ordering Provider: JEVON ZAZUETA Report Released Date/Time: Jul 05, 2024 01:22 PM Reporting Lab: [facility] [address] Performing Lab: [facility] [address] WBC 18.0 H 4.0-11.0 RBC 4.83 4.60-6.20 HGB 14.6 g/dL 13.5-17.9 HCT 45.5 41.0-54.0 MCV 94.2 fL 80.0-100.0 MCH 30.2 pg 27.0-33.0 MCHC 32.1 g/dL 32.0-37.5 PLT 368 150-400 MPV 10.4 fL 9.1-13.0 RDW 13.6 11.5-14.5 Jul 06, 2024 07:21 AM [facility] PHOSPHORUS Specimen Type: PLASMA No comment entered. Ordering Provider: JEVON ZAZUETA Report Released Date/Time: Jul 05, 2024 01:22 PM Reporting Lab: [facility] [address] Performing Lab: [facility] [address] PHOSPHORUS 3.6 mg/dL 2.3-4.3 Jul 06, 2024 07:21 AM [facility] BASIC METABOLIC PANEL+MG Specimen Type: PLASMA No comment entered. Ordering Provider: JEVON ZAZUETA Report Released Date/Time: Jul 05, 2024 01:22 PM Reporting Lab: [facility] [address] Performing Lab: [facility] [address] CREATININE 0.7 mg/dL 0.7-1.2 UREA NITROGEN 12 mg/dL 8-26 GLUCOSE 108 mg/dL H 70-100 SODIUM 138 mmol/L 136-145 POTASSIUM 3.4 mmol/L L 3.5-5.1 CHLORIDE 104 mmol/L 98-107 CO2 20 mmol/L L 22-29 CALCIUM 9.3 mg/dL 8.4-10.2 MAGNESIUM 1.9 mg/dL 1.6-2.6 ANION GAP 14 mmol/L 5-15 .CREAT EGFR(CKD-EPI) >90 >60 Jul 05, 2024 07:17 AM [facility] MAGNESIUM Specimen Type: PLASMA No comment entered. Ordering Provider: JUANCARLOS ECHOLS Report Released Date/Time: Jul 04, 2024 09:39 AM Reporting Lab: [facility] [address] Performing Lab: [facility] [address] MAGNESIUM 2.0 mg/dL 1.6-2.6 Jul 05, 2024 07:17 AM [facility] PHOSPHORUS Specimen Type: PLASMA No comment entered. Ordering Provider: JUANCARLOS ECHOLS S Report Released Date/Time: Jul 04, 2024 09:39 AM Reporting Lab: [facility] [address] Performing Lab: [facility] [address] PHOSPHORUS 2.0 mg/dL L 2.3-4.3 Jul 05, 2024 07:17 AM [facility] BASIC METABOLIC PANEL+MG Specimen Type: PLASMA No comment entered. Ordering Provider: JUANCARLOS ECHOLS S Report Released Date/Time: Jul 04, 2024 09:39 AM Reporting Lab: [facility] [address] Performing Lab: [facility] [address] CREATININE 0.7 mg/dL 0.7-1.2 UREA NITROGEN 12 mg/dL 8-26 GLUCOSE 84 mg/dL 70-100 SODIUM 135 mmol/L L 136-145 POTASSIUM 3.8 mmol/L 3.5-5.1 CHLORIDE 104 mmol/L 98-107 CO2 24 mmol/L 22-29 CALCIUM 9.3 mg/dL 8.4-10.2 MAGNESIUM 2.0 mg/dL 1.6-2.6 ANION GAP 7 mmol/L 5-15 .CREAT EGFR(CKD-EPI) >90 >60 Jul 05, 2024 07:16 AM [facility] CBC Specimen Type: BLOOD No comment entered. Ordering Provider: JUANCARLOS ECHOLS S Report Released Date/Time: Jul 04, 2024 09:39 AM Reporting Lab: [facility] [address] Performing Lab: [facility] [address] WBC 18.3 H 4.0-11.0 RBC 4.49 L 4.60-6.20 HGB 14.1 g/dL 13.5-17.9 HCT 43.4 41.0-54.0 MCV 96.7 fL 80.0-100.0 MCH 31.4 pg 27.0-33.0 MCHC 32.5 g/dL 32.0-37.5 PLT 317 150-400 MPV 10.0 fL 9.1-13.0 RDW 13.9 11.5-14.5 Jul 04, 2024 07:17 AM [facility] BASIC METABOLIC PANEL+MG Specimen Type: PLASMA No comment entered. Ordering Provider: GABINO CAMERON Report Released Date/Time: Jul 03, 2024 06:31 PM Reporting Lab: [facility] [address] Performing Lab: [facility] [address] CREATININE 0.7 mg/dL 0.7-1.2 UREA NITROGEN 16 mg/dL 8-26 GLUCOSE 129 mg/dL H 70-100 SODIUM 137 mmol/L 136-145 POTASSIUM 3.7 mmol/L 3.5-5.1 CHLORIDE 107 mmol/L 98-107 CO2 22 mmol/L 22-29 CALCIUM 9.0 mg/dL 8.4-10.2 MAGNESIUM 1.9 mg/dL 1.6-2.6 ANION GAP 8 mmol/L 5-15 .CREAT EGFR(CKD-EPI) >90 >60 Jul 04, 2024 07:17 AM [facility] PHOSPHORUS Specimen Type: PLASMA No comment entered. Ordering Provider: GABINO CAMERON Report Released Date/Time: Jul 03, 2024 06:31 PM Reporting Lab: [facility] [address] Performing Lab: [facility] [address] PHOSPHORUS 2.8 mg/dL 2.3-4.3 Jul 04, 2024 07:16 AM [facility] CBC Specimen Type: BLOOD No comment entered. Ordering Provider: GABINO CAMERON Report Released Date/Time: Jul 03, 2024 06:31 PM Reporting Lab: [facility] [address] Performing Lab: [facility] [address] WBC 20.6 H 4.0-11.0 RBC 4.63 4.60-6.20 HGB 14.2 g/dL 13.5-17.9 HCT 43.4 41.0-54.0 MCV 93.7 fL 80.0-100.0 MCH 30.7 pg 27.0-33.0 MCHC 32.7 g/dL 32.0-37.5 PLT 329 150-400 MPV 10.4 fL 9.1-13.0 RDW 13.8 11.5-14.5 Jul 04, 2024 07:16 AM [facility] CBC & DIFF Specimen Type: BLOOD Comment: Manual Differential Performed Ordering Provider: GABINO CAMERON Report Released Date/Time: Jul 03, 2024 06:31 PM Reporting Lab: [facility] [address] Performing Lab: [facility] [address] WBC 20.6 H 4.0-11.0 RBC 4.63 4.60-6.20 [...] MORPHOLOGY PRESENT Jul 04, 2024 07:15 AM [facility] BNP Specimen Type: PLASMA No comment entered. Ordering Provider: GABINO CAMERON Report Released Date/Time: Jul 03, 2024 06:31 PM Reporting Lab: [facility] [address] Performing Lab: [facility] [address] BNP 292 pg/mL H <99 Jul 03, 2024 10:32 PM [facility] FINGERSTICK GLUCOSE Specimen Type: BLOOD Comment: Save Result Nurse Notified Ordering Provider: KATELYNN PERSON Report Released Date/Time: Jul 03, 2024 10:50 PM Reporting Lab: [facility] [address] Performing Lab: [facility] [address] FINGERSTICK GLUCOSE 126 mg/dL H 70-100 Jul 03, 2024 05:33 PM [facility] FINGERSTICK GLUCOSE Specimen Type: BLOOD Comment: Save Result Nurse Notified Ordering Provider: KATELYNN PERSON Report Released Date/Time: Jul 03, 2024 05:46 PM Reporting Lab: [facility] [address] Performing Lab: [facility] [address] FINGERSTICK GLUCOSE 141 mg/dL H 70-100 Jul 03, 2024 02:31 PM [facility] POC ABG/ELECTROLYTES Specimen Type: ARTERIAL BLOOD Comment: FIO2 = 97% Patient Temp: 36.0 C Sample Type = ARTERIAL Ordering Provider: MAZIN ARREDONDO Report Released Date/Time: Jul 03, 2024 01:48 PM Reporting Lab: [facility] [address] Performing Lab: [facility] [address] POC PH 7.387 7.35-7.45 POC PCO2 34.4 [...] H 80.0-105.0 Jul 03, 2024 01:05 PM [facility] POC ABG/ELECTROLYTES Specimen Type: ARTERIAL BLOOD Comment: FIO2 = 53% Patient Temp: 36.2 C Sample Type = ARTERIAL Ordering Provider: MAZIN ARREDONDO Report Released Date/Time: Jul 03, 2024 01:48 PM Reporting Lab: [facility] [address] Performing Lab: [facility] [address] POC PH 7.280 L 7.35-7.45 POC PCO2 [...] mm[Hg] 80.0-105.0 Jul 03, 2024 06:15 AM [facility] URINALYSIS Specimen Type: URINE No comment entered. Ordering Provider: MARYBETH POWELL Report Released Date/Time: Jun 12, 2024 04:01 PM Reporting Lab: [facility] [address] Performing Lab: [facility] [address] URINE COLOR YELLOW SPECIFIC GRAVITY 1.031 1.003-1.03 [...] 250 NEGATIVE Jul 03, 2024 06:13 AM [facility] CBC Specimen Type: BLOOD No comment entered. Ordering Provider: MARYBETH POWELL Report Released Date/Time: Jun 12, 2024 03:59 PM Reporting Lab: [facility] [address] Performing Lab: [facility] [address] WBC 15.8 H 4.0-11.0 RBC 5.11 4.60-6.20 HGB 16.1 g/dL 13.5-17.9 HCT 49.1 41.0-54.0 MCV 96.1 fL 80.0-100.0 MCH 31.5 pg 27.0-33.0 MCHC 32.8 g/dL 32.0-37.5 PLT 357 150-400 MPV 9.8 fL 9.1-13.0 RDW 13.7 11.5-14.5 Jun 24, 2024 09:50 AM [facility] BASIC METABOLIC PANEL+MG Specimen Type: PLASMA Comment: Specimen received in Lab at: 0948 Ordering Provider: JEVON ZAZUETA Report Released Date/Time: Jun 23, 2024 06:07 PM Reporting Lab: [facility] [address] Performing Lab: [facility] [address] CREATININE 0.8 mg/dL 0.7-1.2 UREA NITROGEN 13 mg/dL 8-26 GLUCOSE 135 mg/dL H 70-100 SODIUM 135 mmol/L L 136-145 POTASSIUM 3.6 mmol/L 3.5-5.1 CHLORIDE 103 mmol/L 98-107 CO2 24 mmol/L 22-29 CALCIUM 9.2 mg/dL 8.4-10.2 MAGNESIUM 1.9 mg/dL 1.6-2.6 ANION GAP 8 mmol/L 5-15 .CREAT EGFR(CKD-EPI) >90 >60 Jun 24, 2024 09:50 AM [facility] CBC Specimen Type: BLOOD Comment: Specimen received in Lab at: 0948 Ordering Provider: JEVON ZAZUETA Report Released Date/Time: Jun 23, 2024 06:07 PM Reporting Lab: [facility] [address] Performing Lab: [facility] [address] WBC 15.5 H 4.0-11.0 RBC 4.93 4.60-6.20 HGB 15.2 g/dL 13.5-17.9 HCT 46.5 41.0-54.0 MCV 94.3 fL 80.0-100.0 MCH 30.8 pg 27.0-33.0 MCHC 32.7 g/dL 32.0-37.5 PLT 223 150-400 MPV 11.4 fL 9.1-13.0 RDW 13.9 11.5-14.5 Jun 23, 2024 07:52 AM [facility] COMPREHENSIVE METABOLIC PANEL+MG Specimen Type: PLASMA No comment entered. Ordering Provider: JEVON ZAZUETA Report Released Date/Time: Jun 22, 2024 05:51 PM Reporting Lab: [facility] [address] Performing Lab: [facility] [address] CREATININE 0.7 mg/dL 0.7-1.2 UREA NITROGEN 16 [...] >90 >60 Jun 23, 2024 07:52 AM [facility] CBC & DIFF Specimen Type: BLOOD Comment: Automated Differential Performed Ordering Provider: JEVON ZAZUETA Report Released Date/Time: Jun 22, 2024 05:51 PM Reporting Lab: [facility] [address] Performing Lab: [facility] [address] WBC 14.9 H 4.0-11.0 RBC 5.09 4.60-6.20 [...] 0.1 0.0-0.1 Jun 22, 2024 06:10 PM [facility] CBC Specimen Type: BLOOD No comment entered. Ordering Provider: JEVON ZAZUETA Report Released Date/Time: Jun 22, 2024 05:51 PM Reporting Lab: [facility] [address] Performing Lab: [facility] [address] WBC 16.9 H 4.0-11.0 RBC 5.28 4.60-6.20 HGB 16.9 g/dL 13.5-17.9 HCT 50.4 41.0-54.0 MCV 95.5 fL 80.0-100.0 MCH 32.0 pg 27.0-33.0 MCHC 33.5 g/dL 32.0-37.5 PLT 223 150-400 MPV 10.9 fL 9.1-13.0 RDW 14.0 11.5-14.5 Jun 22, 2024 06:10 PM [facility] COMPREHENSIVE METABOLIC PANEL+MG Specimen Type: PLASMA No comment entered. Ordering Provider: JEVON ZAZUETA Report Released Date/Time: Jun 22, 2024 05:51 PM Reporting Lab: [facility] [address] Performing Lab: [facility] [address] CREATININE 0.7 mg/dL 0.7-1.2 UREA NITROGEN 17 [...] >90 >60 Jun 21, 2024 06:48 PM [facility] URINALYSIS Specimen Type: URINE No comment entered. Ordering Provider: DELIA MARTINEZ Report Released Date/Time: Jun 21, 2024 05:45 PM Reporting Lab: [facility] [address] Performing Lab: [facility] [address] URINE COLOR YELLOW SPECIFIC GRAVITY 1.041 H [...] 500 NEGATIVE Jun 21, 2024 05:34 PM [facility] POC CREATININE Specimen Type: BLOOD No comment entered. Ordering Provider: DELIA MARTINEZ Report Released Date/Time: Jun 21, 2024 06:07 PM Reporting Lab: [facility] [address] Performing Lab: [facility] [address] POC CREATININE 1.1 mg/dL 0.6-1.3 Jun 21, 2024 05:30 PM [facility] POC ABG/LACTATE Specimen Type: VENOUS BLOOD No comment entered. Ordering Provider: DELIA MARTINEZ Report Released Date/Time: Jun 21, 2024 06:07 PM Reporting Lab: [facility] [address] Performing Lab: [facility] [address] POC PH 7.470 H 7.31-7.41 POC PCO2 31.2 mm[Hg] L 41.00-51 .0 0 POC PO2 46 mm[Hg] H 35.0-40.0 POC TCO2 24 mmol/L 24.0-29.0 POC HCO3 22.7 mmol/L L 23.0-28.0 POC BE ECT -1 mmol/L POC SO2 85 H 70-75 POC LACTATE 1.85 mmol/L 0.90-1.70 Jun 21, 2024 05:24 PM [facility] PROTHROMBIN TIME/INR Specimen Type: PLASMA No comment entered. Ordering Provider: DELIA MARTINEZ Report Released Date/Time: Jun 21, 2024 05:30 PM Reporting Lab: [facility] [address] Performing Lab: [facility] [address] .INR 1.2 H 0.8-1.1 .PT 13.9 s H 9.4-12.5 Jun 21, 2024 05:24 PM [facility] LIPASE Specimen Type: PLASMA No comment entered. Ordering Provider: DELIA MARTINEZ Report Released Date/Time: Jun 21, 2024 05:30 PM Reporting Lab: [facility] [address] Performing Lab: [facility] [address] LIPASE 32 U/L <60 Jun 21, 2024 05:24 PM [facility] EXTRA GOLD GEL TUBE Specimen Type: SERUM No comment entered. Ordering Provider: DELIA MARTINEZ Report Released Date/Time: Jun 21, 2024 05:41 PM Reporting Lab: [facility] [phone] Performing Lab: [facility] [phone] EXTRA GOLD GEL TUBE RECEIVED Jun 21, 2024 05:24 PM [facility] COMPREHENSIVE METABOLIC PANEL+MG Specimen Type: PLASMA No comment entered. Ordering Provider: DELIA MARTINEZ Report Released Date/Time: Jun 21, 2024 05:30 PM Reporting Lab: [facility] [phone] Performing Lab: [facility] [phone] CREATININE 0.9 mg/dL 0.7-1.2 UREA NITROGEN 29 [...] mg/dL <0.5 Jun 21, 2024 05:24 PM [facility] CBC & DIFF Specimen Type: BLOOD Comment: Manual Differential Performed Ordering Provider: DELIA MARTINEZ Report Released Date/Time: Jun 21, 2024 05:30 PM Reporting Lab: [facility] [phone] Performing Lab: [facility] [address] WBC 21.3 H 4.0-11.0 RBC 5.48 4.60-6.20 [...] MORPHOLOGY PRESENT Jun 08, 2024 10:59 AM [facility] PROTHROMBIN TIME/INR Specimen Type: PLASMA No comment entered. Ordering Provider: MARYBETH POWELL Report Released Date/Time: May 28, 2024 09:02 AM Reporting Lab: [facility] [address] Performing Lab: [facility] [address] .INR 1.0 0.8-1.1 .PT 11.8 s 9.4-12.5 Jun 08, 2024 10:59 AM [facility] HEMOGLOBIN A1C Specimen Type: BLOOD Comment: [...] May 28, 2024 09:02 AM Reporting Lab: [facility] [phone] Performing Lab: [facility] [address] HEMOGLOBIN A1C 4.9 4.0-6.0 Jun 08, 2024 10:59 AM [facility] CBC Specimen Type: BLOOD No comment entered. Ordering Provider: MARYBETH POWELL Report Released Date/Time: May 28, 2024 09:02 AM Reporting Lab: [facility] [phone] Performing Lab: [facility] [phone] WBC 16.1 H 4.0-11.0 RBC 5.02 4.60-6.20 HGB 16.0 g/dL 13.5-17.9 HCT 47.1 41.0-54.0 MCV 93.8 fL 80.0-100.0 MCH 31.9 pg 27.0-33.0 MCHC 34.0 g/dL 32.0-37.5 PLT 228 150-400 MPV 10.3 fL 9.1-13.0 RDW 14.6 H 11.5-14.5 Jun 08, 2024 10:59 AM [facility] BASIC METABOLIC PANEL+MG Specimen Type: PLASMA No comment entered. Ordering Provider: MARYBETH POWELL Report Released Date/Time: May 28, 2024 09:02 AM Reporting Lab: [facility] [phone] Performing Lab: [facility] [phone] CREATININE 0.9 mg/dL 0.7-1.2 UREA NITROGEN 15 [...] 2024 01:40 PM 86 116/59 18 0 [facility] Jun 22, 2024 04:22 AM 7 [facility] Jun 22, 2024 12:22 AM 5 [facility] Social History: Smoking Status [...] 15, 2024 08:30 AM [place]-[facility]BACCO FORMER USER [facility] Tobacco Use History This section includes a history of the smoking, or tobacco-related health factors, that were collected on or before the date of the Encounter. The data comes from the [place] facility where the Encounter took place. Date/Time Smoking Status/Tobacco Use Comment F tiera May 15, 2024 08:30 AM VA-TOBACCO QUIT 15 YRS OR MORE [facility] May 06, 2023 11:30 AM VA-TOBACCO FORMER USER [facility] May 06, 2023 11:30 AM [place] QU[place] 15 YRS OR MORE [facility] Jun 04, 2022 09:00 AM VA-TOBACCO FORMER USER [facility] Jun 04, 2022 09:00 AM VA-TOBACCO QUIT 15 YRS OR MORE [facility] Jul 10, 2021 08:00 AM VA-TOBACCO FORMER USER [facility] Jul 10, 2021 08:00 AM VA-TOBACCO QUIT 5 TO < 15 YRS [facility] May 23, 2020 08:30 AM VA-TOBACCO FORMER USER [facility] May 23, 2020 08:30 AM VA-TOBACCO QUIT 5 TO < 15 YRS [facility] Mar 20, 2019 04:03 PM VA-TOBACCO FORMER USER [facility] Mar 20, 2019 04:03 PM VA-TOBACCO QUIT 5 TO < 15 YRS [facility] Mar 21, 2018 08:13 AM FORMER TOBACCO USER 7Y OR GREATE R [facility] Feb 24, 2017 09:24 AM FORMER TOBACCO USER 7Y OR GREATE R [facility] January 07, 2016 08:01 AM FORMER TOBACCO USE >1Y <7Y [facility] Feb 03, 2015 07:58 AM FORMER TOBACCO USE <1Y [facility] Feb 26, 2014 08:41 AM CURRENT TOBACCO USER [facility] May 13, 2011 01:45 PM CURRENT TOBACCO USER [facility] Advance Directives: All historical and current [...] 2 VIEWS PA AND LAT: FLACA WEAVER [id number] -1950 M Exm Date: JUL 08, 2024@10:09 Req Phys: KATELYNN PERSON Pat Loc: 07-08-2024@11:49 Img Loc: MAIN X-RAY Service: [place] [address] (Case 24 COMPLETE) CHEST 2 VIEWS PA AND LAT (RAD Detailed) CPT:86171 Reason for Study: Uptrending WBC, POD 5 Clinical History: [place] IS NOT under investigation for COVID-19 or is COVID-19 negative POD 5, work up for uptrending wbc Responsible provider name and phone number to notify for critical findings if other than user placing the order and pager listed below: User placing orders pager: Katelynn Person LAST CREATININE 0.9 (07/07/24) Report Status: Verified Date Reported: JUL 08, 2024 Date Verified: JUL 08, 2024 Wound Nurse E-Sig: Report: CHEST 2 VIEWS PA [...] cardiopulmonary disease. READING PHYSICIAN: Sarbjit Vaughn M.D. -[id number] 07/08/2024 12:46 [facility] National Teleradiology Program [phone] (For Medical Practitioner Use Only) Attention Patients / Veterans: If you have questions or concerns about these test results, please contact your ordering provider or primary care team. Primary Interpreting Staff: RADIOLOGY,OUTSIDE SERVICE, Staff Physician / RADIOLOGY,OUTSIDE SERVICE [facility] Jul 08, 2024 10:[address] (AP) ABDOMEN/PELVIS W CONTRAST: FLACA WEAVER [id number] -1950 M Exm Date: JUL 08, 2024@10:00 Req Phys: KATELYNN PERSON Loc: G07-08-2024@12:07 Img Loc: CT IMAGING Service: [facility] [place] [address] (Case 22 COMPLETE) CT (AP) ABDOMEN/PELVIS W CONTRAST(CT Detailed) CPT:98195 Contrast Media : Non-ionic Iodinated Reason for [...] PLASMA .CREAT EGFR(CKD-E >90 Ref: >=60 Allergies: (Park only) TERAZOSIN (Mar 13, 2015) Report Status: Verified Date Reported: JUL 08, 2024 Date Verified: JUL 08, 2024 Wound Nurse E-Sig: Report: CT (AP) ABDOMEN/PELVIS W [...] as noted above READING PHYSICIAN: Celestino Blanc -[id number] 07/08/2024 13:04 [facility] National Teleradiology Program [phone] (For Medical Practitioner Use Only) Attention Patients / Veterans: If you have questions or concerns about these test results, please contact your ordering provider or primary care team. Primary Interpreting Staff: RADIOLOGY,OUTSIDE SERVICE, Staff Physician / RADIOLOGY,OUTSIDE SERVICE [facility] Jun 22, 2024 11:49 AM ABSCESS DRAIN PLACEMENT PERITONEAL (P): FLACA WEAVER [id number] -1950 M Exm Date: JUN 22, 2024@11:49 Req Phys: ANGELA HOLDEN Loc: 06-22-2024@17:14 Img Loc: INTERVENTIONAL RADIOLOGY Service: [facility] [place] [address] (Case [id number] COMPLETE) IR PERITONEAL/RETROPERITONEAL PER(ANI Detailed) CPT:99251 Reason for Study: diverticulitis with abscess (Case 3570 COMPLETE) IR MOD SEDATION 10-22 MIN (ANI Detailed) CPT:01713 Clinical History: IS NOT under investigation for COVID-19 or is COVID-19 negative 73 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 please place abscess drain. Contact number for responsible provider who can be reached for any questions or notifications of critical findings: [phone] n/a LAST CREATININE 0.9 (06/21/24) Report Status: Verified Date Reported: JUN 22, 2024 Date Verified: JUN 22, 2024 Wound Nurse E-Sig:/ES/LISA PENDLETON MD Report: PROCEDURES: Placement [...] anesthesia. Using real-time CT fluoroscopy, a 5 Gabonese [employer] catheter was advanced into the collection in the left pelvis. A wire was coiled in the collection. The tract into the collection was dilated to accommodate the 12 Gabonese locking pigtail drainage catheter. There was return [...] Primary Interpreting Staff: LISA PENDLETON MD, RADIOLOGIST (Wound Nurse) /JRLISA [facility] Jun 22, 2024 11:[address] NEEDLE PLACEMENT (P): FLACA WEAVER [id number] -1950 M Exm Date: JUN 22, 2024@11:48 Req Phys: ANGELA HOLDEN Loc: [facility]/06-22-2024@17:14 Img Loc: CT IMAGING Service: [facility] [place] [address] (Case [id number] COMPLETE) CT SCAN FOR NEEDLE PLACEMENT (CT Detailed) CPT:14929 Reason for Study: l pelvic abscess drain Clinical History: Report Status: Verified Date Reported: JUN 22, 2024 Date Verified: JUN 22, 2024 Wound Nurse E-Sig:/ES/LISA PENDLETON MD Report: PROCEDURES: Placement [...] anesthesia. Using real-time CT fluoroscopy, a 5 Gabonese [employer] catheter was advanced into the collection in the left pelvis. A wire was coiled in the collection. The tract into the collection was dilated to accommodate the 12 Gabonese locking pigtail drainage catheter. There was return [...] Primary Interpreting Staff: LISA PENDLETON MD, RADIOLOGIST (Wound Nurse) /JRT LISA PENDLETON [facility] Jun 21, 2024 06:[address] (AP) ABDOMEN/PELVIS (P): FLACA WEAVER [id number] -1950 M Exm Date: JUN 21, 2024@18:09 Req Phys: DELIA MARTINEZ Pat Loc: [facility] EMERGENCY DEPT WALK-IN (Re Img Loc: CT IMAGING Service: [place] [address] (Case [id number] COMPLETE) CT (AP) ABDOMEN/PELVIS W CONTRAST(CT Detailed) CPT:62574 Contrast Media : Non-ionic Iodinated Reason for [...] PLASMA .CREAT EGFR(CKD-E >90 Ref: >=60 Allergies: (Park only) TERAZOSIN (Mar 13, 2015) Defer to [...] 21, 2024 Date Verified: JUN 21, 2024 Wound Nurse E-Sig:/ALEXI/CARLOS A CUNNINGHAM DO Report: EXAMINATION: CT [...] Interpreting Staff: CARLOS A CUNNINGHAM DO, RADIOLOGIST (Wound Nurse) /CARLOS A ROWELL [facility] May 25, 2024 09:00 AM IR FISTULOGRAM OR SINOGRAM : FLACA WEAVER [id number] -1950 M Exm Date: MAY 25, 2024@09:00 Req Phys: AMINTA PRUITT Pat Loc: [facility] XRAY INTERVENTIONAL RADIO Img Loc: INTERVENTIONAL RADIOLOGY Service: [place] [address] (Case [id number] COMPLETE) IR FISTULOGRAM OR SINOGRAM (ANI Detailed) CPT:07509 Contrast Media : unspecified contrast media Reason [...] 25, 2024 Date Verified: MAY 25, 2024 Wound Nurse E-Sig:/ES/DAVID BURNS MD Report: PROCEDURES 05/25/2024 9:48 [...] Primary Interpreting Staff: DAVID BURNS MD, RADIOLOGIST (Wound Nurse) /CSS DAVID BURNS [facility] May 25, 2024 08:[address] (AP) ABDOMEN/PELVIS (P): FLACA WEAVER [id number] -1950 M Exm Date: MAY 25, 2024@08:23 Req Phys: DAVID BURNS Pat Loc: [facility] XRAY INTERVENTIONAL RADIO Img Loc: CT IMAGING Service: [place] [address] (Case [id number] COMPLETE) CT (AP) ABDOMEN/PELVIS W/O CONTRA(CT Detailed) CPT:78027 Reason for Study: assess abscess and possible [...] PLASMA .CREAT EGFR(CKD-E >90 Ref: >=60 Allergies: (Park only) TERAZOSIN (Mar 13, 2015) Report Status: Verified Date Reported: MAY 25, 2024 Date Verified: MAY 25, 2024 Wound Nurse E-Sig:/ES/JESSENIA GOODMAN MD Report: EXAM: CT abdomen and pelvis without intravenous contrast. 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 TECHNIQUE: Helical acquisition of image data was performed for the abdomen and pelvis without intravenous contrast. Dose: 512.57 mGy*cm COMPARISON: CT abdomen pelvis with contrast 05/11/[address] abdomen pelvis 04/23/2024.; CT abdomen pelvis 05/05/2020 FINDINGS: MEDICAID BILLING SPECIALIST: Pigtail catheter projecting over the left [...] Primary Interpreting Staff: JESSENIA GOODMAN MD, RADIOLOGIST (Wound Nurse) Primary Interpreting Resident: YOHANNES MELO DO, DRAFTING INSTRUCTOR /JESSENIA LOUIE [facility] Pathology Reports: +/- 30 days of [...] COSIGNER: URGENCY: STATUS: COMPLETED $APHDR Reporting Lab: [facility] [CLIA# [id number]] [place] [address] - - - - - - - [...] - PATHOLOGY REPORT Accession No. [id number] - - - - - - - [...] - PATHOLOGY REPORT Accession No. [id number] - - - - - - - [...] Second circumferential surgical margin, en face; E-F: [employer] diverticula; G: [employer] section of mesentery; H: Random veterans contact representative section of additional adipose tissue fragment. [...] One colonic tissue ring, bisected transversely. [facility]: Microscopic examination performed. DIAGNOSIS: 1. Colon, sigmoid, sigmoidectomy-- - Diverticulosis with perforation and focal abscess formation 2. Colon, anastomotic rings, excision-- - Viable colonic mucosa without diagnostic abnormality /es/ EDUARDO PALOMARES MD STAFF PATHOLOGIST Signed Jul 06, 2024@10:40 Performing Laboratory: Surgical Pathology Report Performed By: [facility] [CLIA# [id number]] [place] [address] $FTR - - - - - - [...] - - FLACA WEAVER STANDARD FORM 515 ID:[id number] SEX:M :1950 AGE: 73 LOC:67475 ADM:Jun DX:DIVERTICULITIS PCP: Jatinder Cabrera /alexi/ EDUARDO PALOMARES MD STAFF PATHOLOGIST Signed: 07/06/2024 10:40 EDUARDO PALOMARES [facility] Jun 22, 2024 01:15 PM LR MICROBIOLOGY RE PORT: Reporting Lab: [facility] [CLIA# [id number]] [place] [address] Accession [UID]: [id number] [[id number]] Received: Jun 22, 2024@13:38 Collection sample: FLUID Collection date: Jun 22, 2024 13:15 Provider: ANGELA HOLDEN Comment on specimen: LLQ ABSCESS, RECEIVED IN ANAEROBIC TRANSPORT VIAL Test(s) ordered: GRAM STAIN.................... completed: Jun 22, 2024 15:03 CULTURE & SUSCEPTIBILITY...... completed: Jun 25, 2024 * BACTERIOLOGY FINAL REPORT => Jun 25, 2024 10:56 TECH CODE: [id number] GRAM STAIN: DIRECT SMEAR of specimen before [...] -=--=--=--=--=--=--=-- Performing Laboratory: Bacteriology Report Performed By: [facility] [CLIA# [id number]] [place] [address] [facility] Jun 22, 2024 01:15 PM LR MICROBIOLOGY RE PORT: Reporting Lab: [facility] [CLIA# [id number]] [place] [address] Accession [UID]: [id number] [[id number]] Received: Jun 22, 2024@13:38 Collection sample: FLUID Collection date: Jun 22, 2024 13:15 Provider: ANGELA HOLDEN Comment on specimen: LLQ ABSCESS, RECEIVED IN ANAEROBIC TRANSPORT VIAL Test(s) ordered: ANAEROBIC CULTURE............. completed: Jun 28, 2024 * BACTERIOLOGY FINAL REPORT => Jun 28, 2024 10:08 [facility] CODE: [id number] CULTURE RESULTS: HEAVY GROWTH MIXED ANAEROBES Comment: including the followin+ Bacteroides fragilis 4+ Bacteroides vulgatus 4+ Clostridium innocuum Beta-lactamase negative 4+ Bacteroides caccae 4+ Parvimonas micra 4+ Bacteroides uniformis 4+ Gemella morbillorum 4+ anaerobic small, Gram Positive Rods 4+ Bacteroides thetaiotaomicron Standard workup is now complete. Bacteriology Remark(s): THIS REPORT IS FINAL =--=--=--=--=--=--=--=--=--= --=--=--=--=--=--=--=--=--=- -=--=--=--=--=--=--=-- Performing Laboratory: Bacteriology Report Performed By: [facility] [IA# [id number]] [place] [address] [facility] Jun 21, 2024 06:12 PM LR MICROBIOLOGY RE PORT: Reporting Lab: [facility] [IA# [id number]] [place] [address] Accession [UID]: [id number] [[id number]] Received: Jun 21, 2024@18:12 Collection sample: BLOOD [...] -=--=--=--=--=--=--=-- Performing Laboratory: Bacteriology Report Performed By: [facility] [[facility]# [id number]] [place] [address] [facility] Jun 21, 2024 06:11 PM LR MICROBIOLOGY RE PORT: Reporting Lab: [facility] [IA# [id number]] [place] [address] Accession [UID]: [id number] [[id number]] Received: Jun 21, 2024@18:11 Collection sample: BLOOD [...] -=--=--=--=--=--=--=-- Performing Laboratory: Bacteriology Report Performed By: [facility] [CLIA# [id number]] [place] [address] [facility] Jun 08, 2024 11:00 AM LR MICROBIOLOGY RE PORT: Reporting Lab: [facility] [CLIA# [id number]] [place] [address] Accession [UID]: [id number] [[id number]] Received: Jun 08, 2024@11:00 Collection sample: URINE Collection date: Jun 08, 2024 11:00 Provider: MARYBETH POWELL Comment on specimen: urine Test(s) ordered: CULTURE & SUSCEPTIBILITY...... completed: Jun 09, 2024 * BACTERIOLOGY FINAL REPORT => Jun 09, 2024 19:12 TECH CODE: [id number] CULTURE RESULTS: ESCHERICHIA COLI - Quantity: >100,000 [...] -=--=--=--=--=--=--=-- Performing Laboratory: Bacteriology Report Performed By: [facility] [CLIA# [id number]] [place] [address] [facility]
--- OUTSIDE RECORDS SUMMARY | 2024-07-16 07:33 | XMS_ITS | Encounter Summary ---
Author Name [facility] [place] [facility] [place] [facility] [facility] [place] Address [address] [place] [address] Care Team Providers Care Personal Carer Name Role Phone JATINDER CABRERA Primary Care [...] PART A Sep 29, 2016 PART A [id number] [phone] JUDY WEAVER PATIENT Selected Encounter This section includes the information on record at [place] for the Encounter. Date/Time Encounter Type Encounter Description Reason Pro vider Source Jun 22, 2024 01:00 AM Inpatient Visit ADMIN PAT ACTIVTIES (ProfitablyCT) SYSTEM,CIS-ARK IHE Encounter Template Text not used by [place] [...] 27, 2024 07:00 AM AMBULATORY - NONE [facility] Jun 27, 2024 07:30 AM AMBULATORY - MEDICINE [facility] Jun 27, 2024 08:00 AM AMBULATORY - MEDICINE [facility] Jul 03, 2024 05:55 AM AMBULATORY - NONE [facility] Jul 13, 2024 08:15 AM AMBULATORY NONE [facility] Active, Pending, and Scheduled Orders [...] comes from all [facility]. Test Date/Time Test Type Test Details Facility [...] Order TYPE & SCREEN - LAB BLOOD [facility] Jul 03, 2024 12:00 AM Laboratory - Blood Bank Order TYPE & SCREEN - LAB BLOOD [facility] Jul 16, 2024 [...] Jul 09, 2024 12:23 PM Reporting Lab: [facility] [address] Performing Lab: [facility] [address] PHOSPHORUS 3.0 mg/dL 2.3-4.3 Jul 10, 2024 07:16 AM [facility] BASIC METABOLIC PANEL+MG Specimen Type: PLASMA No comment entered. Ordering Provider: JUANCARLOS ECHOLS S Report Released Date/Time: Jul 09, 2024 12:23 PM Reporting Lab: [facility] [address] Performing Lab: [facility] [address] CREATININE 0.7 mg/dL 0.7-1.2 UREA NITROGEN 27 [...] Jul 09, 2024 12:23 PM Reporting Lab: [facility] [address] Performing Lab: [facility] [address] WBC 18.8 H 4.0-11.0 RBC 5.08 4.60-6.20 [...] Jul 08, 2024 06:18 PM Reporting Lab: [facility] [address] Performing Lab: [facility] [address] WBC 15.3 H 4.0-11.0 RBC 4.91 4.60-6.20 [...] Jul 08, 2024 08:41 AM Reporting Lab: [facility] [address] Performing Lab: [facility] [address] URINE COLOR YELLOW SPECIFIC GRAVITY >1.050 H [...] Jul 07, 2024 04:49 PM Reporting Lab: [facility] [address] Performing Lab: [facility] [address] WBC 17.5 H 4.0-11.0 RBC 4.88 4.60-6.20 [...] Jul 07, 2024 04:49 PM Reporting Lab: [facility] [address] Performing Lab: [facility] [address] PHOSPHORUS 2.6 mg/dL 2.3-4.3 Jul 08, 2024 09:54 AM [facility] BASIC METABOLIC PANEL+MG Specimen Type: PLASMA Comment: Specimen received in Lab at: 0952 Ordering Provider: JUANCARLOS ECHOLS Report Released Date/Time: Jul 07, 2024 04:49 PM Reporting Lab: [facility] [address] Performing Lab: [facility] [address] CREATININE 0.9 mg/dL 0.7-1.2 UREA NITROGEN 26 [...] Jul 07, 2024 12:26 PM Reporting Lab: [facility] [address] Performing Lab: [facility] [address] C DIFF TOX B GENE PCR NEGATIVE Negative Jul 07, 2024 07:41 AM [facility] PHOSPHORUS Specimen Type: PLASMA No comment entered. Ordering Provider: JEVON ZAZUETA Report Released Date/Time: Jul 06, 2024 03:44 PM Reporting Lab: [facility] [address] Performing Lab: [facility] [address] PHOSPHORUS 3.1 mg/dL 2.3-4.3 Jul 07, 2024 07:41 AM [facility] BASIC METABOLIC PANEL+MG Specimen Type: PLASMA No comment entered. Ordering Provider: JEVON ZAZUETA Report Released Date/Time: Jul 06, 2024 03:44 PM Reporting Lab: [facility] [address] Performing Lab: [facility] [address] CREATININE 0.9 mg/dL 0.7-1.2 UREA NITROGEN 20 [...] Jul 06, 2024 03:44 PM Reporting Lab: [facility] [address] Performing Lab: [facility] [address] WBC 21.2 H 4.0-11.0 RBC 5.09 4.60-6.20 [...] Jul 05, 2024 01:22 PM Reporting Lab: [facility] [address] Performing Lab: [facility] [address] WBC 18.0 H 4.0-11.0 RBC 4.83 4.60-6.20 [...] Jul 05, 2024 01:22 PM Reporting Lab: [facility] [address] Performing Lab: [facility] [address] PHOSPHORUS 3.6 mg/dL 2.3-4.3 Jul 06, 2024 07:21 AM [facility] BASIC METABOLIC PANEL+MG Specimen Type: PLASMA No comment entered. Ordering Provider: JEVON ZAZUETA Report Released Date/Time: Jul 05, 2024 01:22 PM Reporting Lab: [facility] [address] Performing Lab: [facility] [address] CREATININE 0.7 mg/dL 0.7-1.2 UREA NITROGEN 12 [...] Jul 04, 2024 09:39 AM Reporting Lab: [facility] [address] Performing Lab: [facility] [address] MAGNESIUM 2.0 mg/dL 1.6-2.6 Jul 05, 2024 07:17 AM [facility] PHOSPHORUS Specimen Type: PLASMA No comment entered. Ordering Provider: JUANCARLOS ECHOLS S Report Released Date/Time: Jul 04, 2024 09:39 AM Reporting Lab: [facility] [address] Performing Lab: [facility] [address] PHOSPHORUS 2.0 mg/dL L 2.3-4.3 Jul 05, 2024 07:17 AM [facility] BASIC METABOLIC PANEL+MG Specimen Type: PLASMA No comment entered. Ordering Provider: JUANCARLOS ECHOLS S Report Released Date/Time: Jul 04, 2024 09:39 AM Reporting Lab: [facility] [address] Performing Lab: [facility] [address] CREATININE 0.7 mg/dL 0.7-1.2 UREA NITROGEN 12 [...] Jul 04, 2024 09:39 AM Reporting Lab: [facility] [address] Performing Lab: [facility] [address] WBC 18.3 H 4.0-11.0 RBC 4.49 L [...] Jul 03, 2024 06:31 PM Reporting Lab: [facility] [address] Performing Lab: [facility] [address] CREATININE 0.7 mg/dL 0.7-1.2 UREA NITROGEN 16 mg/dL 8-26 GLUCOSE 129 mg/dL H 70-100 SODIUM 137 mmol/L 136-145 POTASSIUM 3.7 mmol/L 3.5-5.1 CHLORIDE 107 mmol/L 98-107 CO2 22 mmol/L 22-29 CALCIUM 9.0 mg/dL 8.4-10.2 MAGNESIUM 1.9 mg/dL 1.6-2.6 ANION GAP 8 mmol/L 5-15 .CREAT EGFR(CKD-EPI) >90 >60 Jul 04, 2024 07:17 AM [facility] PHOSPHORUS Specimen Type: PLASMA No comment entered. Ordering Provider: GABINO CAMERON Report Released Date/Time: Jul 03, 2024 06:31 PM Reporting Lab: [facility] [address] Performing Lab: [facility] [address] PHOSPHORUS 2.8 mg/dL 2.3-4.3 Jul 04, 2024 07:16 AM [facility] CBC Specimen Type: BLOOD No comment entered. Ordering Provider: GABINO CAMERON Report Released Date/Time: Jul 03, 2024 06:31 PM Reporting Lab: [facility] [address] Performing Lab: [facility] [address] WBC 20.6 H 4.0-11.0 RBC 4.63 4.60-6.20 [...] Jul 03, 2024 06:31 PM Reporting Lab: [facility] [address] Performing Lab: [facility] [address] WBC 20.6 H 4.0-11.0 RBC 4.63 4.60-6.20 [...] Jul 03, 2024 06:31 PM Reporting Lab: [facility] [address] Performing Lab: [facility] [address] BNP 292 pg/mL H <99 Jul 03, 2024 10:32 PM [facility] FINGERSTICK GLUCOSE Specimen Type: BLOOD Comment: Save Result Nurse Notified Ordering Provider: KATELYNN PERSON Report Released Date/Time: Jul 03, 2024 10:50 PM Reporting Lab: [facility] [address] Performing Lab: [facility] [address] FINGERSTICK GLUCOSE 126 mg/dL H 70-100 Jul 03, 2024 05:33 PM [facility] FINGERSTICK GLUCOSE Specimen Type: BLOOD Comment: Save Result Nurse Notified Ordering Provider: KATELYNN PERSON Report Released Date/Time: Jul 03, 2024 05:46 PM Reporting Lab: [facility] [address] Performing Lab: [facility] [address] FINGERSTICK GLUCOSE 141 mg/dL H 70-100 Jul 03, 2024 02:31 PM [facility] POC ABG/ELECTROLYTES Specimen Type: ARTERIAL BLOOD Comment: FIO2 = 97% Patient Temp: 36.0 C Sample Type = ARTERIAL Ordering Provider: MAZIN ARREDONDO Report Released Date/Time: Jul 03, 2024 01:48 PM Reporting Lab: [facility] [address] Performing Lab: [facility] [address] POC PH 7.387 7.35-7.45 POC PCO2 34.4 [...] Jul 03, 2024 01:48 PM Reporting Lab: [facility] [address] Performing Lab: [facility] [address] POC PH 7.280 L 7.35-7.45 POC PCO2 [...] Jun 12, 2024 04:01 PM Reporting Lab: [facility] [address] Performing Lab: [facility] [address] URINE COLOR YELLOW SPECIFIC GRAVITY 1.031 1.003-1.03 [...] Jun 12, 2024 03:59 PM Reporting Lab: [facility] [address] Performing Lab: [facility] [address] WBC 15.8 H 4.0-11.0 RBC 5.11 4.60-6.20 [...] Jun 23, 2024 06:07 PM Reporting Lab: [facility] [address] Performing Lab: [facility] [address] CREATININE 0.8 mg/dL 0.7-1.2 UREA NITROGEN 13 [...] Jun 23, 2024 06:07 PM Reporting Lab: [facility] [address] Performing Lab: [facility] [address] WBC 15.5 H 4.0-11.0 RBC 4.93 4.60-6.20 [...] Jun 22, 2024 05:51 PM Reporting Lab: [facility] [address] Performing Lab: [facility] [address] CREATININE 0.7 mg/dL 0.7-1.2 UREA NITROGEN 16 [...] Jun 22, 2024 05:51 PM Reporting Lab: [facility] [address] Performing Lab: [facility] [address] WBC 14.9 H 4.0-11.0 RBC 5.09 4.60-6.20 [...] Jun 22, 2024 05:51 PM Reporting Lab: [facility] [address] Performing Lab: [facility] [address] CREATININE 0.7 mg/dL 0.7-1.2 UREA NITROGEN 17 [...] Jun 22, 2024 05:51 PM Reporting Lab: [facility] [address] Performing Lab: [facility] [address] WBC 16.9 H 4.0-11.0 RBC 5.28 4.60-6.20 [...] Jun 21, 2024 05:45 PM Reporting Lab: [facility] [address] Performing Lab: [facility] [address] URINE COLOR YELLOW SPECIFIC GRAVITY 1.041 H [...] Jun 21, 2024 06:07 PM Reporting Lab: [facility] [address] Performing Lab: [facility] [address] POC CREATININE 1.1 mg/dL 0.6-1.3 Jun 21, 2024 05:30 PM [facility] POC ABG/LACTATE Specimen Type: VENOUS BLOOD No comment entered. Ordering Provider: DELIA MARTINEZ Report Released Date/Time: Jun 21, 2024 06:07 PM Reporting Lab: [facility] [address] Performing Lab: [facility] [address] POC PH 7.470 H 7.31-7.41 POC PCO2 [...] Jun 21, 2024 05:30 PM Reporting Lab: [facility] [address] Performing Lab: [facility] [address] .INR 1.2 H 0.8-1.1 .PT 13.9 s H 9.4-12.5 Jun 21, 2024 05:24 PM [facility] LIPASE Specimen Type: PLASMA No comment entered. Ordering Provider: DELIA MARTINEZ Report Released Date/Time: Jun 21, 2024 05:30 PM Reporting Lab: [facility] [address] Performing Lab: [facility] [address] LIPASE 32 U/L <60 Jun 21, 2024 05:24 PM [facility] EXTRA GOLD GEL TUBE Specimen Type: SERUM No comment entered. Ordering Provider: DELIA MARTINEZ Report Released Date/Time: Jun 21, 2024 05:41 PM Reporting Lab: [facility] [address] Performing Lab: [facility] [address] EXTRA GOLD GEL TUBE RECEIVED Jun 21, 2024 05:24 PM [facility] COMPREHENSIVE METABOLIC PANEL+MG Specimen Type: PLASMA No comment entered. Ordering Provider: DELIA MARTINEZ Report Released Date/Time: Jun 21, 2024 05:30 PM Reporting Lab: [facility] [address] Performing Lab: [facility] [address] CREATININE 0.9 mg/dL 0.7-1.2 UREA NITROGEN 29 [...] Jun 21, 2024 05:30 PM Reporting Lab: [facility] [address] Performing Lab: [facility] [address] WBC 21.3 H 4.0-11.0 RBC 5.48 4.60-6.20 [...] MORPHOLOGY PRESENT Jun 08, 2024 10:59 AM [facility] PROTHROMBIN TIME/INR Specimen Type: PLASMA No comment entered. Ordering Provider: MARYBETH POWELL Report Released Date/Time: May 28, 2024 09:02 AM Reporting Lab: [facility] [address] Performing Lab: [facility] [address] .INR 1.0 0.8-1.1 .PT 11.8 s 9.4-12.5 Jun 08, 2024 10:59 AM [facility] HEMOGLOBIN A1C Specimen Type: BLOOD [...] May 28, 2024 09:02 AM Reporting Lab: [facility] [address] Performing Lab: [facility] [address] HEMOGLOBIN A1C 4.9 4.0-6.0 Jun 08, 2024 10:59 AM [facility] CBC Specimen Type: BLOOD No comment entered. Ordering Provider: MARYBETH POWELL Report Released Date/Time: May 28, 2024 09:02 AM Reporting Lab: [facility] [address] Performing Lab: [facility] [address] WBC 16.1 H 4.0-11.0 RBC 5.02 4.60-6.20 HGB 16.0 g/dL 13.5-17.9 HCT 47.1 41.0-54.0 MCV 93.8 fL 80.0-100.0 MCH 31.9 pg 27.0-33.0 MCHC 34.0 g/dL 32.0-37.5 PLT 228 150-400 MPV 10.3 fL 9.1-13.0 RDW 14.6 H 11.5-14.5 Jun 08, 2024 10:59 AM [facility] BASIC METABOLIC PANEL+MG Specimen Type: PLASMA No comment entered. Ordering Provider: MARYBETH POWELL Report Released Date/Time: May 28, 2024 09:02 AM Reporting Lab: [facility] [address] Performing Lab: [facility] [address] CREATININE 0.9 mg/dL 0.7-1.2 UREA NITROGEN 15 [...] 2024 01:40 PM 86 116/59 18 0 [facility] Jun 22, 2024 04:22 AM 7 [facility] Jun 22, 2024 12:22 AM 5 [facility] Social History: [...] 15, 2024 08:30 AM [place]-TOBACCO FORMER USER [facility] Tobacco Use History This section includes a history of the smoking, or tobacco-related health factors, that were collected on or before the date of the Encounter. The data comes from the [place] facility where the Encounter took place. Date/Time Smoking Status/Tobacco Use Comment F acility May 15, 2024 08:30 AM [place]-TO[place] QUIT 15 YRS OR MORE [facility] May 06, 2023 11:30 AM [place]-TOBAC[place] FORMER USER [facility] May [...] comes from all [place] treatment facilities. Date/Time Radiology Report Provider Source Jul 08, 2024 10:09 AM CHEST 2 VIEWS PA AND LAT: FLACA WEAVER [id number] -1950 M Exm Date: JUL 08, 2024@10:09 Req Phys: KATELYNN PERSON Loc: 07-08-2024@11:49 Img Loc: MAIN X-RAY Service: [place] [address] (Case 24 COMPLETE) CHEST 2 VIEWS PA AND LAT (RAD Detailed) CPT:58449 Reason for Study: Uptrending WBC, POD 5 Clinical History: [place] IS NOT under investigation for COVID-19 or is COVID-19 negative POD 5, work up for uptrending wbc Responsible provider name and phone number to notify for critical findings if other than user placing the order and pager listed below: User placing orders pager: Katelynn Person LAST CREATININE 0.9 (07/07/24) Report Status: Verified Date Reported: JUL 08, 2024 Date Verified: JUL 08, 2024 Electrical Design Engineer E-Sig: Report: CHEST 2 VIEWS PA AND LAT HISTORY: Uptrending WBC, POD 5 COMPARISON: CT chest 11/12/2022 TECHNIQUE: Frontal and lateral views of the chest, submitted to the [place] National Teleradiology Program (NTP) for interpretation. FINDINGS: Lungs: Clear. No focal consolidation. No pulmonary edema. Pleura: No pleural effusion or pneumothorax. Mediastinum: Normal size and contour. Bones: Unremarkable. Impression: No acute cardiopulmonary disease. READING PHYSICIAN: Sarbjit Vaughn M.D. -[id number] 07/08/2024 12:[address] [facility] National Teleradiology Program [phone] (For Medical Practitioner Use Only) Attention Patients / Veterans: If you have questions or concerns about these test results, please contact your ordering provider or primary care team. Primary Interpreting Staff: RADIOLOGY,OUTSIDE SERVICE, Staff Physician / RADIOLOGY,OUTSIDE SERVICE [facility] Jul 08, 2024 10:[address] (AP) ABDOMEN/PELVIS W CONTRAST: FLACA WEAVER [id number] -1950 M Exm Date: JUL 08, 2024@10:00 Req Phys: KATELYNN PERSON Loc: 2K07-08-2024@12:07 Img Loc: CT IMAGING Service: [place] [address] (Case 22 COMPLETE) CT (AP) ABDOMEN/PELVIS W CONTRAST(CT Detailed) CPT:23117 Contrast Media : Non-ionic Iodinated Reason for [...] PLASMA .CREAT EGFR(CKD-E >90 Ref: >=60 Allergies: ([facility] only) TERAZOSIN (Mar 13, 2015) Report Status: Verified Date Reported: JUL 08, 2024 Date Verified: JUL 08, 2024 Electrical Design Engineer E-Sig: Report: CT (AP) ABDOMEN/PELVIS W CONTRAST HISTORY: POD 5, Uptrending WBC - Concern for Abscess/other infection COMPARISON: June 21, 2024 TECHNIQUE: CT abdomen and pelvis was performed after intravenous contrast. Axial, sagittal and coronal reformatted images. The study was performed at the local [place] facility and images were sent to the [place] National Teleradiology Program (NTP) for interpretation. Number [...] as noted above READING PHYSICIAN: Celestino Blanc -[id number] 07/08/2024 13:[address] [facility] SkillSurveyradiology Program [phone] (For Medical Practitioner Use Only) Attention Patients / Veterans: If you have questions or concerns about these test results, please contact your ordering provider or primary care team. Primary Interpreting Staff: RADIOLOGY,OUTSIDE SERVICE, Staff Physician / RADIOLOGY,OUTSIDE SERVICE [facility] Jun 22, 2024 11:49 AM ABSCESS DRAIN PLACEMENT PERITONEAL (P): FLACA WEAVER [id number] -1950 M Exm Date: JUN 22, 2024@11:49 Req Phys: ANGELA HOLDEN Loc: [facility]06-22-2024@17:14 Img Loc: INTERVENTIONAL RADIOLOGY Service: [place] [address] (Case [id number] COMPLETE) IR PERITONEAL/RETROPERITONEAL PER(ANI Detailed) CPT:78909 Reason for Study: diverticulitis with abscess (Case [id number] COMPLETE) IR MOD SEDATION 10-22 MIN (ANI Detailed) CPT:03260 Clinical History: IS NOT under investigation for COVID-19 or is COVID-19 negative 73 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 please place abscess drain. Contact number for responsible provider who can be reached for any questions or notifications of critical findings: [phone] n/a LAST CREATININE 0.9 (06/21/24) Report Status: Verified Date Reported: JUN 22, 2024 Date Verified: JUN 22, 2024 Electrical Design Engineer E-Sig:/ES/LISA PENDLETON MD Report: PROCEDURES: Placement of [...] anesthesia. Using real-time CT fluoroscopy, a 5 Mauritian RMIesis catheter was advanced into the collection in the left pelvis. A wire was coiled in the collection. The tract into the collection was dilated to accommodate the 12 Mauritian locking pigtail drainage catheter. There was return [...] Primary Interpreting Staff: LISA PENDLETON MD, RADIOLOGIST (Electrical Design Engineer) /JRT LISA PENDLETON [facility] Jun 22, 2024 11:[address] NEEDLE PLACEMENT (P): FLACA WEAVER [id number] -1950 M Exm Date: JUN 22, 2024@11:48 Req Phys: ANGELA HOLDEN Loc: 2K/06-22-2024@17:14 Img Loc: CT IMAGING Service: [place] [address] (Case [id number] COMPLETE) CT SCAN FOR NEEDLE PLACEMENT (CT Detailed) CPT:21660 Reason for Study: l pelvic abscess drain Clinical History: Report Status: Verified Date Reported: JUN 22, 2024 Date Verified: JUN 22, 2024 Electrical Design Engineer E-Sig:/ES/LISA PENDLETON MD Report: PROCEDURES: Placement of [...] anesthesia. Using real-time CT fluoroscopy, a 5 Mauritian RMIesis catheter was advanced into the collection in the left pelvis. A wire was coiled in the collection. The tract into the collection was dilated to accommodate the 12 Mauritian locking pigtail drainage catheter. There was return [...] Primary Interpreting Staff: LISA PENDLETON MD, RADIOLOGIST (Electrical Design Engineer) /JRT LISA PENDLETON [facility] Jun 21, 2024 06:[address] (AP) ABDOMEN/PELVIS (P): FLACA WEAVER [id number] -1950 M Exm Date: JUN 21, 2024@18:09 Req Phys: DELIA MARTINEZ Loc: [facility] EMERGENCY DEPT WALK-IN (Re Img Loc: CT IMAGING Service: [place] [address] (Case [id number] COMPLETE) CT (AP) ABDOMEN/PELVIS W CONTRAST(CT Detailed) CPT:23299 Contrast Media : Non-ionic Iodinated Reason for [...] PLASMA .CREAT EGFR(CKD-E >90 Ref: >=60 Allergies: ([facility] only) TERAZOSIN (Mar 13, 2015) Defer to [...] 21, 2024 Date Verified: JUN 21, 2024 Electrical Design Engineer E-Sig:/ES/CARLOS A CUNNINGHAM DO Report: EXAMINATION: CT [...] Interpreting Staff: CARLOS A CUNNINGHAM DO, RADIOLOGIST (Electrical Design Engineer) /CARLOS A ROWELL [facility] May 25, 2024 09:00 AM IR FISTULOGRAM OR SINOGRAM : FLACA WEAVER [id number] -1950 M Exm Date: MAY 25, 2024@09:00 Req Phys: AMINTA PRUITT Loc: [facility] X[facility] INTERVENTIONAL RADIO Img Loc: INTERVENTIONAL RADIOLOGY Service: [place] [address] (Case [id number] COMPLETE) IR FISTULOGRAM OR SINOGRAM (ANI Detailed) CPT:47338 Contrast Media : unspecified contrast media Reason for Study: s/p drain placement for diverticular abscess- assess for drain Clinical History: [place] IS NOT under investigation for COVID-19 or [...] 25, 2024 Date Verified: MAY 25, 2024 Electrical Design Engineer E-Sig:/ES/DAVID BURNS MD Report: PROCEDURES 05/25/2024 [...] Primary Interpreting Staff: DAVID BURNS MD, RADIOLOGIST (Electrical Design Engineer) /CSS DAVID BURNS [facility] May 25, 2024 08:[address] (AP) ABDOMEN/PELVIS (P): FLACA WEAVER [id number] -1950 M Exm Date: MAY 25, 2024@08:23 Req Phys: DAVID BURNS Pat Loc: [facility] X[facility] INTERVENTIONAL RADIO Img Loc: CT IMAGING Service: [place] [address] (Case [id number] COMPLETE) CT (AP) ABDOMEN/PELVIS W/O CONTRA(CT Detailed) CPT:32120 Reason for Study: assess abscess and possible drain removal Clinical History: no contrast per venancio Per Joint Commission Standards, by signing this diagnostic imaging request the ordering provider confirms they have considered patients age and recent imaging history. Defer to radiologist for final CT protocol. Contact number for responsible provider who can be reached for any questions or notifications of critical findings: [phone] venancio LAST 3: Collection DT Specimen Test [...] PLASMA .CREAT EGFR(CKD-E >90 Ref: >=60 Allergies: ([facility]) TERAZOSIN (Mar 13, 2015) Report Status: Verified Date Reported: MAY 25, 2024 Date Verified: MAY 25, 2024 Electrical Design Engineer E-Sig:/ES/JESSENIA GOODMAN MD Report: EXAM: CT [...] pelvis 04/23/2024.; CT abdomen pelvis 05/05/2020 FINDINGS: MOLD CLOSER: Pigtail catheter projecting over the left hemipelvis [...] Primary Interpreting Staff: JESSENIA GOODMAN MD, RADIOLOGIST (Electrical Design Engineer) Primary Interpreting Resident: YOHANNES MELO DO, SUSTAINABILITY COORDINATOR /CMN JESSENIA GOODMAN [facility] Pathology Reports: +/- [...] Reporting Lab: [facility] [CLIA# [id number]] [place] [address] - - - - - - - [...] - PATHOLOGY REPORT Accession No. [id number] - - - - - - - [...] - PATHOLOGY REPORT Accession No. [id number] - - - - - - - [...] Second circumferential surgical margin, en face; E-F: Switchman Supervisor diverticula; G: Switchman Supervisor section of mesentery; H: Random abrasives sales representative section of additional adipose tissue [...] One colonic tissue ring, bisected transversely. [facility]: Microscopic examination performed. DIAGNOSIS: 1. Colon, sigmoid, sigmoidectomy-- - Diverticulosis with perforation and focal abscess formation 2. Colon, anastomotic rings, excision-- - Viable colonic mucosa without diagnostic abnormality /es/ EDUARDO PALOMARES MD STAFF PATHOLOGIST Signed Jul 06, 2024@10:40 Performing Laboratory: Surgical Pathology Report Performed By: [facility] [CLIA# [id number]] [place] [address] $FTR - - - - - - [...] - - FLACA WEAVER STANDARD FORM 515 ID:[id number] SEX:M :1950 AGE: 73 LOC:[id number] ADM:Jun DX:DIVERTICULITIS PCP: Jatinder Cabrera /alexi/ EDUARDO PALOMARES MD STAFF PATHOLOGIST Signed: 07/06/2024 10:40 EDUARDO PALOMARES [facility] Jun 22, 2024 01:15 PM LR MICROBIOLOGY RE PORT: Reporting Lab: [facility] [CLIA# [id number]] [place] [address] Accession [UID]: [id number] [[id number]] Received: Jun 22, 2024@13:38 Collection sample: FLUID Collection date: Jun 22, 2024 13:15 Provider: ANGELA HOLDEN Comment on specimen: LLQ ABSCESS, RECEIVED IN ANAEROBIC TRANSPORT VIAL Test(s) ordered: GRAM STAIN.................... completed: Jun 22, 2024 15:03 CULTURE & SUSCEPTIBILITY...... completed: Jun 25, 2024 * BACTERIOLOGY FINAL REPORT => Jun 25, 2024 10:56 TECH CODE: [id number] GRAM STAIN: DIRECT SMEAR of specimen before [...] Performed By: [facility] [CLIA# [id number]] [place] [address] [facility] Jun 22, 2024 01:15 PM LR MICROBIOLOGY RE PORT: Reporting Lab: [facility] [CLIA# [id number]] [place] [address] Accession [UID]: [id number] [[id number]] Received: Jun 22, 2024@13:38 Collection sample: FLUID Collection date: Jun 22, 2024 13:15 Provider: ANGELA HOLDEN Comment on specimen: LLQ ABSCESS, RECEIVED IN ANAEROBIC TRANSPORT VIAL Test(s) ordered: ANAEROBIC CULTURE............. completed: Jun 28, 2024 * BACTERIOLOGY FINAL REPORT => Jun 28, 2024 10:08 [facility] CODE: [id number] CULTURE RESULTS: HEAVY GROWTH MIXED ANAEROBES Comment: [...] Performed By: [facility] [CLIA# [id number]] [place] [address] [facility] Jun 21, 2024 06:12 PM LR MICROBIOLOGY RE PORT: Reporting Lab: [facility] [IA# [id number]] [place] [address] Accession [UID]: [id number] [[id number]] Received: Jun 21, 2024@18:12 Collection sample: BLOOD [...] Report Performed By: [facility] [IA# [id number]] [place] [address] [facility] Jun 21, 2024 06:11 PM LR MICROBIOLOGY RE PORT: Reporting Lab: [facility] [IA# [id number]] [place] [address] Accession [UID]: [id number] [[id number]] Received: Jun 21, 2024@18:11 Collection sample: BLOOD [...] Performed By: [facility] [CLIA# [id number]] [place] [address] [facility] Jun 08, 2024 11:00 AM LR MICROBIOLOGY RE PORT: Reporting Lab: [facility] [CLIA# [id number]] [place] [address] Accession [UID]: [id number] [[id number]] Received: Jun 08, 2024@11:00 Collection sample: URINE Collection date: Jun 08, 2024 11:00 Provider: MARYBETH POWELL Comment on specimen: urine Test(s) ordered: CULTURE & SUSCEPTIBILITY...... completed: Jun 09, 2024 * BACTERIOLOGY FINAL REPORT => Jun 09, 2024 19:12 TECH CODE: [id number] CULTURE RESULTS: ESCHERICHIA COLI - Quantity: >100,000 [...] Performed By: [facility] [CLIA# [id number]] [place] [address] [facility] Encounter Notes: All associated encounter notes This section contains the clinical notes associated to the Encounter. Date/Time Encounter Note(s) Provider Source Jun 22, 2024 01:00 AM CRITICAL CARE UNIT NOTE: LOCAL TITLE: ICCA INPATIENT FLOWSHEET STANDARD TITLE: CRITICAL CARE UNIT NOTE DATE OF NOTE: JUN 22, 2024@01:00 ENTRY DATE: JUN 23, 2024@14:37:17 AUTHOR: SYSTEM,[employer] EXP COSIGNER: URGENCY: STATUS: COMPLETED This is a place aranda only. Please see [employer] to view document. /es/ [employer] SYSTEM ICU DOCUMENT IMPORT Signed: 06/23/2024 14:37 SYSTEM,[employer] [facility] Jun 22, 2024 01:00 AM CRITICAL CARE UNIT NOTE: LOCAL TITLE: [facility] RESPIRATORY THERAPY FLOWSHEET STANDARD TITLE: CRITICAL CARE UNIT NOTE DATE OF NOTE: JUN 22, 2024@01:00 ENTRY DATE: JUN 23, 2024@15:09:09 AUTHOR: SYSTEM,[employer] EXP COSIGNER: URGENCY: STATUS: COMPLETED This is a place aranda only. Please see [employer] to view document. /es/ [employer] SYSTEM ICU DOCUMENT IMPORT Signed: 06/23/2024 15:09 SYSTEM,[facility]
--- OUTSIDE RECORDS SUMMARY | 2024-07-16 07:33 | XMS_ITS ---
[place] DAILY HOSPITALIZATION DATA [facility] Encounter Summary Created on: July 16, 2024 MEG FLACA YAMIL : 1950 Sex: Male Author Name [facility] [place] [facility] [place] Address [address] [place] [address] Care Team Providers Care Dimensional Inspector Name Role Phone JATINDER CABRERA Primary Care [...] PART A Sep 29, 2016 PART A [id number] JUDY WEAVER PATIENT Selected Encounter This section includes the information on record at [place] for the Encounter. Date/Time Encounter Type Encounter Description Reason Pro vider Source Jun 23, 2024 10:43 AM Inpatient Visit DAILY HOSPITALIZATION DATA LINDA ARREDONDO [...] 27, 2024 07:00 AM AMBULATORY - NONE [facility] Jun 27, 2024 07:30 AM AMBULATORY - MEDICINE [facility] Jun 27, 2024 08:00 AM AMBULATORY - MEDICINE [facility] Jul 03, 2024 05:55 AM AMBULATORY - NONE [facility] Jul 13, 2024 08:15 AM AMBULATORY - NONE [facility] Active, Pending, and Scheduled Orders This section includes a listing of several types of active, pending, and scheduled orders, including clinic medications orders, diagnostic test orders, procedure orders and consult orders; where the start date of the order is 45 days before the date of the Encounter or 45 days after the date of theEncounter. The data comes from all [facility] facilities. Test Date/Time Test Type Test Details Facility Name May 28, 2024 12:00 AM Laboratory - Blood Bank Order TYPE & SCREEN - LAB BLOOD SP [facility] Jun 08, 2024 09:57 AM Laboratory - Chemi stry Order URINALYSIS URINE WC ONCE [facility] Jun 12, 2024 12:00 AM Laboratory - Chemi stry Order BNP PLASMA SP ONCE [facility] Jun 21, 2024 05:45 PM Laboratory - Blood Bank Order TYPE & SCREEN - LAB BLOOD [facility] Jul 03, 2024 12:00 AM Laboratory - Blood Bank Order TYPE & SCREEN - LAB BLOOD [facility] Jul 16, 2024 12:00 AM Laboratory - Chemi stry Order CBC BLOOD SP ONCE [facility] Jul 17, 2024 12:00 AM Laboratory - Chemi stry Order BASIC METABOLIC PANEL+MG PLASMA SP ONCE [facility] Lab Results: +/- 30 days of [...] Range Comment Jul 10, 2024 07:16 AM [facility] PHOSPHORUS Specimen Type: PLASMA No comment entered. Ordering Provider: JUANCARLOS ECHOLS Report Released Date/Time: Jul 09, 2024 12:23 PM Reporting Lab: [facility] [address] Performing Lab: [facility] [address] PHOSPHORUS 3.0 mg/dL 2.3-4.3 Jul 10, 2024 07:16 AM [facility] BASIC METABOLIC PANEL+MG Specimen Type: PLASMA No comment entered. Ordering Provider: JUANCARLOS ECHOLS Report Released Date/Time: Jul 09, 2024 12:23 PM Reporting Lab: [facility] [address] Performing Lab: [facility] [address] CREATININE 0.7 mg/dL 0.7-1.2 UREA NITROGEN 27 mg/dL H 8-26 GLUCOSE 104 mg/dL H 70-100 SODIUM 133 mmol/L L 136-145 POTASSIUM 4.3 mmol/L 3.5-5.1 CHLORIDE 102 mmol/L 98-107 CO2 19 mmol/L L 22-29 CALCIUM 10.1 mg/dL 8.4-10.2 MAGNESIUM 1.9 mg/dL 1.6-2.6 ANION GAP 12 mmol/L 5-15 .CREAT EGFR(CKD-EPI) >90 >60 Jul 10, 2024 07:15 AM [facility] CBC Specimen Type: BLOOD No comment entered. Ordering Provider: JUANCARLOS ECHOLS S Report Released Date/Time: Jul 09, 2024 12:23 PM Reporting Lab: [facility] [address] Performing Lab: [facility] [address] WBC 18.8 H 4.0-11.0 RBC 5.08 4.60-6.20 HGB 15.9 g/dL 13.5-17.9 HCT 46.8 41.0-54.0 MCV 92.1 fL 80.0-100.0 MCH 31.3 pg 27.0-33.0 MCHC 34.0 g/dL 32.0-37.5 PLT 479 H 150-400 MPV 10.2 fL 9.1-13.0 RDW 13.7 11.5-14.5 Jul 09, 2024 07:08 AM [facility] CBC Specimen Type: BLOOD No comment entered. Ordering Provider: QUYNH WEISS AV Report Released Date/Time: Jul 08, 2024 06:18 PM Reporting Lab: [facility] [address] Performing Lab: [facility] [address] WBC 15.3 H 4.0-11.0 RBC 4.91 4.60-6.20 HGB 15.1 g/dL 13.5-17.9 HCT 45.7 41.0-54.0 MCV 93.1 fL 80.0-100.0 MCH 30.8 pg 27.0-33.0 MCHC 33.0 g/dL 32.0-37.5 PLT 443 H 150-400 MPV 10.0 fL 9.1-13.0 RDW 13.5 11.5-14.5 Jul 08, 2024 10:50 AM [facility] URINALYSIS Specimen Type: URINE No comment entered. Ordering Provider: KATELYNN PERSON Report Released Date/Time: Jul 08, 2024 08:41 AM Reporting Lab: [facility] [address] Performing Lab: [facility] [address] URINE COLOR YELLOW SPECIFIC GRAVITY >1.050 H [...] NEGATIVE NEGATIVE Jul 08, 2024 09:54 AM [facility] CBC Specimen Type: BLOOD Comment: Specimen received in Lab at: [id number] Ordering Provider: JUANCARLOS ECHOLS Report Released Date/Time: Jul 07, 2024 04:49 PM Reporting Lab: [facility] [address] Performing Lab: [facility] [address] WBC 17.5 H 4.0-11.0 RBC 4.88 4.60-6.20 HGB 14.9 g/dL 13.5-17.9 HCT 45.7 41.0-54.0 MCV 93.6 fL 80.0-100.0 MCH 30.5 pg 27.0-33.0 MCHC 32.6 g/dL 32.0-37.5 PLT 472 H 150-400 MPV 10.2 fL 9.1-13.0 RDW 13.7 11.5-14.5 Jul 08, 2024 09:54 AM [facility] PHOSPHORUS Specimen Type: PLASMA Comment: Specimen received in Lab at: 0952 Ordering Provider: JUANCARLOS ECHOLS Report Released Date/Time: Jul 07, 2024 04:49 PM Reporting Lab: [facility] [address] Performing Lab: [facility] [address] PHOSPHORUS 2.6 mg/dL 2.3-4.3 Jul 08, 2024 09:54 AM [facility] BASIC METABOLIC PANEL+MG Specimen Type: PLASMA Comment: Specimen received in Lab at: 0952 Ordering Provider: JUANCARLOS ECHOLS Report Released Date/Time: Jul 07, 2024 04:49 PM Reporting Lab: [facility] [address] Performing Lab: [facility] [address] CREATININE 0.9 mg/dL 0.7-1.2 UREA NITROGEN 26 mg/dL 8-26 GLUCOSE 128 mg/dL H 70-100 SODIUM 134 mmol/L L 136-145 POTASSIUM 3.4 mmol/L L 3.5-5.1 CHLORIDE 100 mmol/L 98-107 CO2 24 mmol/L 22-29 CALCIUM 9.8 mg/dL 8.4-10.2 MAGNESIUM 1.8 mg/dL 1.6-2.6 ANION GAP 10 mmol/L 5-15 .CREAT EGFR(CKD-EPI) >90 >60 Jul 07, 2024 02:00 PM [facility] C DIFF PANEL Specimen Type: FECES No comment entered. Ordering Provider: JEVON ZAZUEAT Report Released Date/Time: Jul 07, 2024 12:26 PM Reporting Lab: [facility] [address] Performing Lab: [facility] [address] C DIFF TOX B GENE PCR NEGATIVE Negative Jul 07, 2024 07:41 AM [facility] PHOSPHORUS Specimen Type: PLASMA No comment entered. Ordering Provider: JEVON ZAZUETA Report Released Date/Time: Jul 06, 2024 03:44 PM Reporting Lab: [facility] [address] Performing Lab: [facility] [address] PHOSPHORUS 3.1 mg/dL 2.3-4.3 Jul 07, 2024 07:41 AM [facility] BASIC METABOLIC PANEL+MG Specimen Type: PLASMA No comment entered. Ordering Provider: JEVON ZAZUETA Report Released Date/Time: Jul 06, 2024 03:44 PM Reporting Lab: [facility] [address] Performing Lab: [facility] [address] CREATININE 0.9 mg/dL 0.7-1.2 UREA NITROGEN 20 mg/dL 8-26 GLUCOSE 157 mg/dL H 70-100 SODIUM 136 mmol/L 136-145 POTASSIUM 3.7 mmol/L 3.5-5.1 CHLORIDE 102 mmol/L 98-107 CO2 21 mmol/L L 22-29 CALCIUM 9.8 mg/dL 8.4-10.2 MAGNESIUM 1.9 mg/dL 1.6-2.6 ANION GAP 13 mmol/L 5-15 .CREAT EGFR(CKD-EPI) >90 >60 Jul 07, 2024 07:40 AM [facility] CBC Specimen Type: BLOOD No comment entered. Ordering Provider: JEVON ZAZUETA Report Released Date/Time: Jul 06, 2024 03:44 PM Reporting Lab: [facility] [address] Performing Lab: [facility] [address] WBC 21.2 H 4.0-11.0 RBC 5.09 4.60-6.20 HGB 15.9 g/dL 13.5-17.9 HCT 48.3 41.0-54.0 MCV 94.9 fL 80.0-100.0 MCH 31.2 pg 27.0-33.0 MCHC 32.9 g/dL 32.0-37.5 PLT 500 H 150-400 MPV 10.3 fL 9.1-13.0 RDW 13.6 11.5-14.5 Jul 06, 2024 07:21 AM [facility] CBC Specimen Type: BLOOD No comment entered. Ordering Provider: JEVON ZAZUETA Report Released Date/Time: Jul 05, 2024 01:22 PM Reporting Lab: [facility] [address] Performing Lab: [facility] [address] WBC 18.0 H 4.0-11.0 RBC 4.83 4.60-6.20 HGB 14.6 g/dL 13.5-17.9 HCT 45.5 41.0-54.0 MCV 94.2 fL 80.0-100.0 MCH 30.2 pg 27.0-33.0 MCHC 32.1 g/dL 32.0-37.5 PLT 368 150-400 MPV 10.4 fL 9.1-13.0 RDW 13.6 11.5-14.5 Jul 06, 2024 07:21 AM [facility] PHOSPHORUS Specimen Type: PLASMA No comment entered. Ordering Provider: JEVON ZAZUETA Report Released Date/Time: Jul 05, 2024 01:22 PM Reporting Lab: [facility] [address] Performing Lab: [facility] [address] PHOSPHORUS 3.6 mg/dL 2.3-4.3 Jul 06, 2024 07:21 AM [facility] BASIC METABOLIC PANEL+MG Specimen Type: PLASMA No comment entered. Ordering Provider: JEVON ZAZUETA Report Released Date/Time: Jul 05, 2024 01:22 PM Reporting Lab: [facility] [address] Performing Lab: [facility] [address] CREATININE 0.7 mg/dL 0.7-1.2 UREA NITROGEN 12 mg/dL 8-26 GLUCOSE 108 mg/dL H 70-100 SODIUM 138 mmol/L 136-145 POTASSIUM 3.4 mmol/L L 3.5-5.1 CHLORIDE 104 mmol/L 98-107 CO2 20 mmol/L L 22-29 CALCIUM 9.3 mg/dL 8.4-10.2 MAGNESIUM 1.9 mg/dL 1.6-2.6 ANION GAP 14 mmol/L 5-15 .CREAT EGFR(CKD-EPI) >90 >60 Jul 05, 2024 07:17 AM [facility] MAGNESIUM Specimen Type: PLASMA No comment entered. Ordering Provider: JUANCARLOS ECHOLS Report Released Date/Time: Jul 04, 2024 09:39 AM Reporting Lab: [facility] [address] Performing Lab: [facility] [address] MAGNESIUM 2.0 mg/dL 1.6-2.6 Jul 05, 2024 07:17 AM [facility] PHOSPHORUS Specimen Type: PLASMA No comment entered. Ordering Provider: JUANCARLOS ECHOLS S Report Released Date/Time: Jul 04, 2024 09:39 AM Reporting Lab: [facility] [address] Performing Lab: [facility] [address] PHOSPHORUS 2.0 mg/dL L 2.3-4.3 Jul 05, 2024 07:17 AM [facility] BASIC METABOLIC PANEL+MG Specimen Type: PLASMA No comment entered. Ordering Provider: UJANCARLOS ECHOLS S Report Released Date/Time: Jul 04, 2024 09:39 AM Reporting Lab: [facility] [address] Performing Lab: [facility] [address] CREATININE 0.7 mg/dL 0.7-1.2 UREA NITROGEN 12 mg/dL 8-26 GLUCOSE 84 mg/dL 70-100 SODIUM 135 mmol/L L 136-145 POTASSIUM 3.8 mmol/L 3.5-5.1 CHLORIDE 104 mmol/L 98-107 CO2 24 mmol/L 22-29 CALCIUM 9.3 mg/dL 8.4-10.2 MAGNESIUM 2.0 mg/dL 1.6-2.6 ANION GAP 7 mmol/L 5-15 .CREAT EGFR(CKD-EPI) >90 >60 Jul 05, 2024 07:16 AM [facility] CBC Specimen Type: BLOOD No comment entered. Ordering Provider: JUANCARLOS ECHOLS S Report Released Date/Time: Jul 04, 2024 09:39 AM Reporting Lab: [facility] [address] Performing Lab: [facility] [address] WBC 18.3 H 4.0-11.0 RBC 4.49 L 4.60-6.20 HGB 14.1 g/dL 13.5-17.9 HCT 43.4 41.0-54.0 MCV 96.7 fL 80.0-100.0 MCH 31.4 pg 27.0-33.0 MCHC 32.5 g/dL 32.0-37.5 PLT 317 150-400 MPV 10.0 fL 9.1-13.0 RDW 13.9 11.5-14.5 Jul 04, 2024 07:17 AM [facility] BASIC METABOLIC PANEL+MG Specimen Type: PLASMA No comment entered. Ordering Provider: GABINO CAMERON Report Released Date/Time: Jul 03, 2024 06:31 PM Reporting Lab: [facility] [address] Performing Lab: [facility] [address] CREATININE 0.7 mg/dL 0.7-1.2 UREA NITROGEN 16 mg/dL 8-26 GLUCOSE 129 mg/dL H 70-100 SODIUM 137 mmol/L 136-145 POTASSIUM 3.7 mmol/L 3.5-5.1 CHLORIDE 107 mmol/L 98-107 CO2 22 mmol/L 22-29 CALCIUM 9.0 mg/dL 8.4-10.2 MAGNESIUM 1.9 mg/dL 1.6-2.6 ANION GAP 8 mmol/L 5-15 .CREAT EGFR(CKD-EPI) >90 >60 Jul 04, 2024 07:17 AM [facility] PHOSPHORUS Specimen Type: PLASMA No comment entered. Ordering Provider: GABINO CAMERON Report Released Date/Time: Jul 03, 2024 06:31 PM Reporting Lab: [facility] [phone] Performing Lab: [facility] [address] PHOSPHORUS 2.8 mg/dL 2.3-4.3 Jul 04, 2024 07:16 AM [facility] CBC Specimen Type: BLOOD No comment entered. Ordering Provider: GABINO CAMERON Report Released Date/Time: Jul 03, 2024 06:31 PM Reporting Lab: [facility] [address] Performing Lab: [facility] [address] WBC 20.6 H 4.0-11.0 RBC 4.63 4.60-6.20 HGB 14.2 g/dL 13.5-17.9 HCT 43.4 41.0-54.0 MCV 93.7 fL 80.0-100.0 MCH 30.7 pg 27.0-33.0 MCHC 32.7 g/dL 32.0-37.5 PLT 329 150-400 MPV 10.4 fL 9.1-13.0 RDW 13.8 11.5-14.5 Jul 04, 2024 07:16 AM [facility] CBC & DIFF Specimen Type: BLOOD Comment: Manual Differential Performed Ordering Provider: GABINO CAMERON Report Released Date/Time: Jul 03, 2024 06:31 PM Reporting Lab: [facility] [address] Performing Lab: [facility] [address] WBC 20.6 H 4.0-11.0 RBC 4.63 4.60-6.20 [...] MORPHOLOGY PRESENT Jul 04, 2024 07:15 AM [facility] BNP Specimen Type: PLASMA No comment entered. Ordering Provider: GABINO CAMERON Report Released Date/Time: Jul 03, 2024 06:31 PM Reporting Lab: [facility] [address] Performing Lab: [facility] [address] BNP 292 pg/mL H <99 Jul 03, 2024 10:32 PM [facility] FINGERSTICK GLUCOSE Specimen Type: BLOOD Comment: Save Result Nurse Notified Ordering Provider: KATELYNN PERSON Report Released Date/Time: Jul 03, 2024 10:50 PM Reporting Lab: [facility] [address] Performing Lab: [facility] [address] FINGERSTICK GLUCOSE 126 mg/dL H 70-100 Jul 03, 2024 05:33 PM [facility] F[place]ER[place]ICK GLUCOSE Specimen Type: BLOOD Comment: Save Result Nurse Notified Ordering Provider: KATELYNN PERSON Report Released Date/Time: Jul 03, 2024 05:46 PM Reporting Lab: [facility] [address] Performing Lab: [facility] [address] FINGERSTICK GLUCOSE 141 mg/dL H 70-100 Jul 03, 2024 02:31 PM [facility] POC ABG/ELECTROLYTES Specimen Type: ARTERIAL BLOOD Comment: FIO2 = 97% Patient Temp: 36.0 C Sample Type = ARTERIAL Ordering Provider: MAZIN ARREDONDO Report Released Date/Time: Jul 03, 2024 01:48 PM Reporting Lab: [facility] [address] Performing Lab: [facility] [address] POC PH 7.387 7.35-7.45 POC PCO2 34.4 [...] H 80.0-105.0 Jul 03, 2024 01:05 PM [facility] POC ABG/ELECTROLYTES Specimen Type: ARTERIAL BLOOD Comment: FIO2 = 53% Patient Temp: 36.2 C Sample Type = ARTERIAL Ordering Provider: MAZIN ARREDONDO Report Released Date/Time: Jul 03, 2024 01:48 PM Reporting Lab: [facility] [address] Performing Lab: [facility] [address] POC PH 7.280 L 7.35-7.45 POC PCO2 [...] mm[Hg] 80.0-105.0 Jul 03, 2024 06:15 AM [facility] URINALYSIS Specimen Type: URINE No comment entered. Ordering Provider: MARYBETH POWELL Report Released Date/Time: Jun 12, 2024 04:01 PM Reporting Lab: [facility] [address] Performing Lab: [facility] [address] URINE COLOR YELLOW SPECIFIC GRAVITY 1.031 1.003-1.03 [...] 250 NEGATIVE Jul 03, 2024 06:13 AM [facility] CBC Specimen Type: BLOOD No comment entered. Ordering Provider: MARYBETH POWELL Report Released Date/Time: Jun 12, 2024 03:59 PM Reporting Lab: [facility] [address] Performing Lab: [facility] [address] WBC 15.8 H 4.0-11.0 RBC 5.11 4.60-6.20 HGB 16.1 g/dL 13.5-17.9 HCT 49.1 41.0-54.0 MCV 96.1 fL 80.0-100.0 MCH 31.5 pg 27.0-33.0 MCHC 32.8 g/dL 32.0-37.5 PLT 357 150-400 MPV 9.8 fL 9.1-13.0 RDW 13.7 11.5-14.5 Jun 24, 2024 09:50 AM [facility] BASIC METABOLIC PANEL+MG Specimen Type: PLASMA Comment: Specimen received in Lab at: [id number] Ordering Provider: JEVON ZAZUETA Report Released Date/Time: Jun 23, 2024 06:07 PM Reporting Lab: [facility] [address] Performing Lab: [facility] [address] CREATININE 0.8 mg/dL 0.7-1.2 UREA NITROGEN 13 mg/dL 8-26 GLUCOSE 135 mg/dL H 70-100 SODIUM 135 mmol/L L 136-145 POTASSIUM 3.6 mmol/L 3.5-5.1 CHLORIDE 103 mmol/L 98-107 CO2 24 mmol/L 22-29 CALCIUM 9.2 mg/dL 8.4-10.2 MAGNESIUM 1.9 mg/dL 1.6-2.6 ANION GAP 8 mmol/L 5-15 .CREAT EGFR(CKD-EPI) >90 >60 Jun 24, 2024 09:50 AM [facility] CBC Specimen Type: BLOOD Comment: Specimen received in Lab at: [id number] Ordering Provider: JEVON ZAZUETA Report Released Date/Time: Jun 23, 2024 06:07 PM Reporting Lab: [facility] [address] Performing Lab: [facility] [address] WBC 15.5 H 4.0-11.0 RBC 4.93 4.60-6.20 HGB 15.2 g/dL 13.5-17.9 HCT 46.5 41.0-54.0 MCV 94.3 fL 80.0-100.0 MCH 30.8 pg 27.0-33.0 MCHC 32.7 g/dL 32.0-37.5 PLT 223 150-400 MPV 11.4 fL 9.1-13.0 RDW 13.9 11.5-14.5 Jun 23, 2024 07:52 AM [facility] COMPREHENSIVE METABOLIC PANEL+MG Specimen Type: PLASMA No comment entered. Ordering Provider: JEVON ZAZUETA Report Released Date/Time: Jun 22, 2024 05:51 PM Reporting Lab: [facility] [address] Performing Lab: [facility] [address] CREATININE 0.7 mg/dL 0.7-1.2 UREA NITROGEN 16 [...] >90 >60 Jun 23, 2024 07:52 AM [facility] CBC & DIFF Specimen Type: BLOOD Comment: Automated Differential Performed Ordering Provider: JEVON ZAZUETA Report Released Date/Time: Jun 22, 2024 05:51 PM Reporting Lab: [facility] [address] Performing Lab: [facility] [address] WBC 14.9 H 4.0-11.0 RBC 5.09 4.60-6.20 [...] 0.1 0.0-0.1 Jun 22, 2024 06:10 PM [facility] CBC Specimen Type: BLOOD No comment entered. Ordering Provider: JEVON ZAZUETA Report Released Date/Time: Jun 22, 2024 05:51 PM Reporting Lab: [facility] [address] Performing Lab: [facility] [address] WBC 16.9 H 4.0-11.0 RBC 5.28 4.60-6.20 HGB 16.9 g/dL 13.5-17.9 HCT 50.4 41.0-54.0 MCV 95.5 fL 80.0-100.0 MCH 32.0 pg 27.0-33.0 MCHC 33.5 g/dL 32.0-37.5 PLT 223 150-400 MPV 10.9 fL 9.1-13.0 RDW 14.0 11.5-14.5 Jun 22, 2024 06:10 PM [facility] COMPREHENSIVE METABOLIC PANEL+MG Specimen Type: PLASMA No comment entered. Ordering Provider: JEVON ZAZUETA Report Released Date/Time: Jun 22, 2024 05:51 PM Reporting Lab: [facility] [address] Performing Lab: [facility] [address] CREATININE 0.7 mg/dL 0.7-1.2 UREA NITROGEN 17 [...] >90 >60 Jun 21, 2024 06:48 PM [facility] URINALYSIS Specimen Type: URINE No comment entered. Ordering Provider: DELIA MARTINEZ Report Released Date/Time: Jun 21, 2024 05:45 PM Reporting Lab: [facility] [address] Performing Lab: [facility] [address] URINE COLOR YELLOW SPECIFIC GRAVITY 1.041 H [...] 500 NEGATIVE Jun 21, 2024 05:34 PM [facility] POC CREATININE Specimen Type: BLOOD No comment entered. Ordering Provider: DELIA MARTINEZ Report Released Date/Time: Jun 21, 2024 06:07 PM Reporting Lab: [facility] [address] Performing Lab: [facility] [address] POC CREATININE 1.1 mg/dL 0.6-1.3 Jun 21, 2024 05:30 PM [facility] POC ABG/LACTATE Specimen Type: VENOUS BLOOD No comment entered. Ordering Provider: DELIA MARTINEZ Report Released Date/Time: Jun 21, 2024 06:07 PM Reporting Lab: [facility] [address] Performing Lab: [facility] [address] POC PH 7.470 H 7.31-7.41 POC PCO2 31.2 mm[Hg] L 41.00-51 .0 0 POC PO2 46 mm[Hg] H 35.0-40.0 POC TCO2 24 mmol/L 24.0-29.0 POC HCO3 22.7 mmol/L L 23.0-28.0 POC BE ECT -1 mmol/L POC SO2 85 H 70-75 POC LACTATE 1.85 mmol/L 0.90-1.70 Jun 21, 2024 05:24 PM [facility] PROTHROMBIN TIME/INR Specimen Type: PLASMA No comment entered. Ordering Provider: DELIA MARTINEZ Report Released Date/Time: Jun 21, 2024 05:30 PM Reporting Lab: [facility] [address] Performing Lab: [facility] [phone] .INR 1.2 H 0.8-1.1 .PT 13.9 s H 9.4-12.5 Jun 21, 2024 05:24 PM [facility] LIPASE Specimen Type: PLASMA No comment entered. Ordering Provider: DELIA MARTINEZ Report Released Date/Time: Jun 21, 2024 05:30 PM Reporting Lab: [facility] [address] Performing Lab: [facility] [address] LIPASE 32 U/L <60 Jun 21, 2024 05:24 PM [facility] EXTRA GOLD GEL TUBE Specimen Type: SERUM No comment entered. Ordering Provider: DELIA MARTINEZ Report Released Date/Time: Jun 21, 2024 05:41 PM Reporting Lab: [facility] [address] Performing Lab: [facility] [address] EXTRA GOLD GEL TUBE RECEIVED Jun 21, 2024 05:24 PM [facility] COMPREHENSIVE METABOLIC PANEL+MG Specimen Type: PLASMA No comment entered. Ordering Provider: DELIA MARTINEZ Report Released Date/Time: Jun 21, 2024 05:30 PM Reporting Lab: [facility] [address] Performing Lab: [facility] [address] CREATININE 0.9 mg/dL 0.7-1.2 UREA NITROGEN 29 [...] mg/dL <0.5 Jun 21, 2024 05:24 PM [facility] CBC & DIFF Specimen Type: BLOOD Comment: Manual Differential Performed Ordering Provider: DELIA MARTINEZ Report Released Date/Time: Jun 21, 2024 05:30 PM Reporting Lab: [facility] [id number] Performing Lab: [facility] [phone] WBC 21.3 H 4.0-11.0 RBC 5.48 4.60-6.20 [...] MORPHOLOGY PRESENT Jun 08, 2024 10:59 AM [facility] PROTHROMBIN TIME/INR Specimen Type: PLASMA No comment entered. Ordering Provider: MARYBETH POWELL Report Released Date/Time: May 28, 2024 09:02 AM Reporting Lab: [facility] [id number] Performing Lab: [facility] [phone] .INR 1.0 0.8-1.1 .PT 11.8 s 9.4-12.5 Jun 08, 2024 10:59 AM [facility] HEMOGLOBIN A1C Specimen Type: BLOOD Comment: [...] 28, 2024 09:02 AM Reporting Lab: [facility] [phone] Performing Lab: [facility] [phone] HEMOGLOBIN A1C 4.9 4.0-6.0 Jun 08, 2024 10:59 AM [facility] CBC Specimen Type: BLOOD No comment entered. Ordering Provider: MARYBETH POWELL Report Released Date/Time: May 28, 2024 09:02 AM Reporting Lab: [facility] [phone] Performing Lab: [facility] [phone] WBC 16.1 H 4.0-11.0 RBC 5.02 4.60-6.20 HGB 16.0 g/dL 13.5-17.9 HCT 47.1 41.0-54.0 MCV 93.8 fL 80.0-100.0 MCH 31.9 pg 27.0-33.0 MCHC 34.0 g/dL 32.0-37.5 PLT 228 150-400 MPV 10.3 fL 9.1-13.0 RDW 14.6 H 11.5-14.5 Jun 08, 2024 10:59 AM [facility] BASIC METABOLIC PANEL+MG Specimen Type: PLASMA No comment entered. Ordering Provider: MARYBETH POWELL Report Released Date/Time: May 28, 2024 09:02 AM Reporting Lab: [facility] [phone] Performing Lab: [facility] [phone] CREATININE 0.9 mg/dL 0.7-1.2 UREA NITROGEN 15 [...] Source Jun 23, 2024 10:28 PM 3 [facility] Jun 23, 2024 09:28 PM 4 [facility] Jun 23, 2024 06:07 PM 6 [facility] Jun 23, 2024 05:21 PM 7 [facility] Jun 23, 2024 05:36 AM 6 [facility] Social History: Smoking Status [...] 15, 2024 08:30 AM [employer]CO FORMER USER [facility] Tobacco Use History This section includes a history of the smoking, or tobacco-related health factors, that were collected on or before the date of the Encounter. The data comes from the [place] facility where the Encounter took place. Date/Time Smoking Status/Tobacco Use Comment F acility May 15, 2024 08:30 AM VA-TOBACCO QUIT 15 YRS OR MORE [facility] May 06, 2023 11:30 AM VA-TOBACCO FORMER USER [facility] May 06, 2023 11:30 AM VA-TOBACCO QUIT 15 YRS OR MORE [facility] Jun 04, 2022 09:00 AM VA-TOBACCO FORMER USER [facility] Jun 04, 2022 09:00 AM VA-TOBACCO QUIT 15 YRS OR MORE [facility] Jul 10, 2021 08:00 AM VA-TOBACCO FORMER USER [facility] Jul 10, 2021 08:00 AM VA-TOBACCO QUIT 5 TO < 15 YRS [facility] May 23, 2020 08:30 AM VA-TOBACCO FORMER USER [facility] May 23, 2020 08:30 AM VA-TOBACCO QUIT 5 TO < 15 YRS [facility] Mar 20, 2019 04:03 PM VA-TOBACCO FORMER USER [facility] Mar 20, 2019 04:03 PM VA-TOBACCO QUIT 5 TO < 15 YRS [facility] Mar 21, 2018 08:13 AM FORMER TOBACCO USER 7Y OR GREATE R [facility] Feb 24, 2017 09:24 AM FORMER TOBACCO USER 7Y OR GREATE R [facility] January 07, 2016 08:01 AM FORMER TOBACCO USE >1Y <7Y [facility] Feb 03, 2015 07:58 AM FORMER TOBACCO USE <1Y [facility] Feb 26, 2014 08:41 AM CURRENT TOBACCO USER [facility] May 13, 2011 01:45 PM CURRENT TOBACCO USER [facility] Advance Directives: All historical and current [...] 2 VIEWS PA AND LAT: FLACA WEAVER [id number] -1950 M Exm Date: JUL 08, 2024@10:09 Req Phys: KATELYNN PERSON Loc: 2KG/07-08-2024@11:49 Img Loc: MAIN X-RAY Service: [place] [address] (Case 24 COMPLETE) CHEST 2 VIEWS PA AND LAT (RAD Detailed) CPT:96986 Reason for Study: Uptrending WBC, POD 5 [...] 08, 2024 Date Verified: JUL 08, 2024 Pottery Decoration Designer E-Sig: Report: CHEST 2 VIEWS PA [...] cardiopulmonary disease. READING PHYSICIAN: Sarbjit Vaughn M.D. -[phone] 07/08/2024 12:46 EST [facility] National Teleradiology Program [phone] (For Medical Practitioner Use Only) Attention Patients / Veterans: If you have questions or concerns about these test results, please contact your ordering provider or primary care team. Primary Interpreting Staff: RADIOLOGY,OUTSIDE SERVICE, Staff Physician / RADIOLOGY,OUTSIDE SERVICE [facility] Jul 08, 2024 10:[address] (AP) ABDOMEN/PELVIS W CONTRAST: FLACA WEAVER [id number] -1950 M Exm Date: JUL 08, 2024@10:00 Req Phys: KATELYNN PERSON Loc: 2KG/07-08-2024@12:07 [facility] [place]: [place]AGING Service: [place] [address] (Case 22 COMPLETE) CT (AP) ABDOMEN/PELVIS W CONTRAST(CT Detailed) CPT:34734 Contrast Media : Non-ionic Iodinated Reason for [...] PLASMA .CREAT EGFR(CKD-E >90 Ref: >=60 Allergies: (Sidney only) TERAZOSIN (Mar 13, 2015) Report Status: Verified Date Reported: JUL 08, 2024 Date Verified: JUL 08, 2024 Pottery Decoration Designer E-Sig: Report: CT (AP) ABDOMEN/PELVIS W [...] as noted above READING PHYSICIAN: Celestino Blanc -[phone] 07/08/2024 13:04 [facility] [employer] Teleradiology Program [phone] (For Medical Practitioner Use Only) Attention Patients / Veterans: If you have questions or concerns about these test results, please contact your ordering provider or primary care team. Primary Interpreting Staff: RADIOLOGY,OUTSIDE SERVICE, Staff Physician / RADIOLOGY,OUTSIDE SERVICE [facility] Jun 22, 2024 11:49 AM ABSCESS DRAIN PLACEMENT PERITONEAL (P): FLACA WEAVER [id number] -1950 M Exm Date: JUN 22, 2024@11:49 Req Phys: ANGELA HOLDEN Loc: [facility]06-22-2024@17:14 Img Loc: INTERVENTIONAL RADIOLOGY Service: [place] [address] (Case [id number] COMPLETE) IR PERITONEAL/RETROPERITONEAL PER(ANI Detailed) CPT:82039 Reason for Study: diverticulitis with abscess (Case [id number] COMPLETE) IR MOD SEDATION 10-22 MIN (ANI Detailed) CPT:10243 Clinical History: [place] IS NOT under investigation for COVID-19 or is COVID-19 negative 73 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 please place abscess drain. Contact number for responsible provider who can be reached for any questions or notifications of critical findings: [phone] n/a LAST CREATININE 0.9 (06/21/24) Report Status: Verified Date Reported: JUN 22, 2024 Date Verified: JUN 22, 2024 Pottery Decoration Designer E-Sig:/ES/LISA PENDLETON MD Report: PROCEDURES: Placement [...] Using real-time CT fluoroscopy, a 5 Micronesian ChoreMonsteresis catheter was advanced into the collection in the left pelvis. A wire was coiled in the collection. The tract into the collection was dilated to accommodate the 12 Micronesian locking pigtail drainage catheter. There was return [...] Primary Interpreting Staff: LISA PENDLETON MD, RADIOLOGIST (Pottery Decoration Designer) /JRT LISA PENDLETON [facility] Jun 22, 2024 11:[address] NEEDLE PLACEMENT (P): FLACA WEAVER [id number] -1950 M Exm Date: JUN 22, 2024@11:48 Req Phys: ANGELA HOLDEN Loc: [facility]/06-22-2024@17:14 Img Loc: CT IMAGING Service: [place] [address] (Case [id number] COMPLETE) CT SCAN FOR NEEDLE PLACEMENT (CT Detailed) CPT:73034 Reason for Study: l pelvic abscess drain Clinical History: Report Status: Verified Date Reported: JUN 22, 2024 Date Verified: JUN 22, 2024 Pottery Decoration Designer E-Sig:/ES/LISA PENDLETON MD Report: PROCEDURES: Placement [...] Using real-time CT fluoroscopy, a 5 Micronesian ChoreMonsteresis catheter was advanced into the collection in the left pelvis. A wire was coiled in the collection. The tract into the collection was dilated to accommodate the 12 Micronesian locking pigtail drainage catheter. There was return [...] Primary Interpreting Staff: LISA PENDLETON MD, RADIOLOGIST (Pottery Decoration Designer) /JRT LISA PENDLETON [facility] Jun 21, 2024 06:[address] (AP) ABDOMEN/PELVIS (P): FLACA WEAVER [id number] -1950 M Exm Date: JUN 21, 2024@18:09 Req Phys: DELIA MARTINEZ Loc: [facility] EMERGENCY DEPT WALK-IN (Re Img Loc: CT IMAGING Service: [place] [address] (Case [id number] COMPLETE) CT (AP) ABDOMEN/PELVIS W CONTRAST(CT Detailed) CPT:41021 Contrast Media : Non-ionic Iodinated Reason for [...] PLASMA .CREAT EGFR(CKD-E >90 Ref: >=60 Allergies: ([place]ney only) TERAZOSIN (Mar 13, 2015) Defer to [...] 21, 2024 Date Verified: JUN 21, 2024 Pottery Decoration Designer E-Sig:/ES/CARLOS A CUNNINGHAM DO Report: EXAMINATION: [...] Interpreting Staff: CARLOS A CUNNINGHAM DO, RADIOLOGIST (Pottery Decoration Designer) /CARLOS A ROWELL [facility] May 25, 2024 09:00 AM IR FISTULOGRAM OR SINOGRAM : FLACA WEAVER [id number] -1950 M Exm Date: MAY 25, 2024@09:00 Req Phys: AMINTA PRUITT Loc: [facility] INTERVENTIONAL RADIO Img Loc: INTERVENTIONAL RADIOLOGY Service: [place] [address] (Case [id number] COMPLETE) IR FISTULOGRAM OR SINOGRAM (ANI Detailed) CPT:44685 Contrast Media : unspecified contrast media Reason [...] 25, 2024 Date Verified: MAY 25, 2024 Pottery Decoration Designer E-Sig:/ES/DAVID BURNS MD Report: PROCEDURES 05/25/2024 [...] Primary Interpreting Staff: DAVID BURNS MD, RADIOLOGIST (Pottery Decoration Designer) /CSS DAVID BURNS [facility] May 25, 2024 08:[address] (AP) ABDOMEN/PELVIS (P): FLACA WEAVER [id number] -1950 M Exm Date: MAY 25, 2024@08:23 Req Phys: DAVID BURNS Pat Loc: [facility] X[facility] INTERVENTIONAL RADIO Img Loc: CT IMAGING Service: [place] [address] (Case [id number] COMPLETE) CT (AP) ABDOMEN/PELVIS W/O CONTRA(CT Detailed) CPT:65564 Reason for Study: assess abscess and possible [...] PLASMA .CREAT EGFR(CKD-E >90 Ref: >=60 Allergies: (Sidney only) TERAZOSIN (Mar 13, 2015) Report Status: Verified Date Reported: MAY 25, 2024 Date Verified: MAY 25, 2024 Pottery Decoration Designer E-Sig:/ES/JESSENIA GOODMAN MD Report: EXAM: CT [...] pelvis 04/23/2024.; CT abdomen pelvis 05/05/2020 FINDINGS: ADVISORY APPLICATION DEVELOPER: Pigtail catheter projecting over the left [...] Primary Interpreting Staff: JESSENIA GOODMAN MD, RADIOLOGIST (Pottery Decoration Designer) Primary Interpreting Resident: YOHANNES MELO DO, MECHANICAL MAINTENANCE SUPERVISOR /CMJESSENIA SOSA [facility] Pathology Reports: +/- 30 days of [...] COSIGNER: URGENCY: STATUS: COMPLETED $APHDR Reporting Lab: [facility] [CLIA# [id number]] [place] [address] - - - - - - - [...] - PATHOLOGY REPORT Accession No. [id number] - - - - - - - [...] - PATHOLOGY REPORT Accession No. [id number] - - - - - - - [...] Second circumferential surgical margin, en face; E-F: [employer] diverticula; G: [employer] section of mesentery; H: Random delivery representative section of additional adipose tissue fragment. [...] One colonic tissue ring, bisected transversely. [facility]. (D[facility]: Microscopic examination performed. DIAGNOSIS: 1. Colon, sigmoid, sigmoidectomy-- - Diverticulosis with perforation and focal abscess formation 2. Colon, anastomotic rings, excision-- - Viable colonic mucosa without diagnostic abnormality /es/ EDUARDO PALOMARES MD STAFF PATHOLOGIST Signed Jul 06, 2024@10:40 Performing Laboratory: Surgical Pathology Report Performed By: [facility] [CLIA# [id number]] [place] [address] $FTR - - - - - - - - - - - - - - - - - - - - - - - - - - - - - - - - - - - - - - - - (End of report) EDUARDO PALOMARES MD [facility] Date Jul 06, 2024 - - - - - - - - - - - - - - - - - - - - - - - - - - - - - - - - - - - - - - - - FLACA WEAVER STANDARD FORM 515 ID:[id number] SEX:M :1950 AGE: 73 LOC:10868 ADM:Jun DX:DIVERTICULITIS PCP: Jatinder Cabrera /alexi/ EDUARDO PALOMARES MD STAFF PATHOLOGIST Signed: 07/06/2024 10:40 EDUARDO PALOMARES [facility] Jun 22, 2024 01:15 PM LR MICROBIOLOGY RE PORT: Reporting Lab: [facility] [CLIA# [id number]] [place] [address] Accession [UID]: [id number] [[id number]] Received: Jun 22, 2024@13:38 Collection sample: FLUID Collection date: Jun 22, 2024 13:15 Provider: ANGELA HOLDEN Comment on specimen: LLQ ABSCESS, RECEIVED IN ANAEROBIC TRANSPORT VIAL Test(s) ordered: GRAM STAIN.................... completed: Jun 22, 2024 15:03 CULTURE & SUSCEPTIBILITY...... completed: Jun 25, 2024 * BACTERIOLOGY FINAL REPORT => Jun 25, 2024 10:56 [facility] CODE: [id number] GRAM STAIN: DIRECT SMEAR of specimen before [...] -=--=--=--=--=--=--=-- Performing Laboratory: Bacteriology Report Performed By: [facility] [CLIA# [id number]] [place] [address] [facility] Jun 22, 2024 01:15 PM LR MICROBIOLOGY RE PORT: Reporting Lab: [facility] [CLIA# [id number]] [place] [address] Accession [UID]: [id number] [[id number]] Received: Jun 22, 2024@13:38 Collection sample: FLUID Collection date: Jun 22, 2024 13:15 Provider: ANGELA HOLDEN Comment on specimen: LLQ ABSCESS, RECEIVED IN ANAEROBIC TRANSPORT VIAL Test(s) ordered: ANAEROBIC CULTURE............. completed: Jun 28, 2024 * BACTERIOLOGY FINAL REPORT => Jun 28, 2024 10:08 TECH CODE: [id number] CULTURE RESULTS: HEAVY GROWTH MIXED ANAEROBES Comment: including the followin+ Bacteroides fragilis 4+ Bacteroides vulgatus 4+ Clostridium innocuum Beta-lactamase negative 4+ Bacteroides caccae 4+ Parvimonas micra 4+ Bacteroides uniformis 4+ Gemella morbillorum 4+ anaerobic small, Gram Positive Rods 4+ Bacteroides thetaiotaomicron Standard workup is now complete. Bacteriology Remark(s): THIS REPORT IS FINAL =--=--=--=--=--=--=--=--=--= --=--=--=--=--=--=--=--=--=- -=--=--=--=--=--=--=-- Performing Laboratory: Bacteriology Report Performed By: [facility] [CLIA# [id number]] [place] [address] [facility] Jun 21, 2024 06:12 PM LR MICROBIOLOGY RE PORT: Reporting Lab: [facility] [CLIA# [id number]] [place] [address] Accession [UID]: [id number] [[id number]] Received: Jun 21, 2024@18:12 Collection sample: BLOOD [...] -=--=--=--=--=--=--=-- Performing Laboratory: Bacteriology Report Performed By: [facility] [CLIA# [id number]] [place] [address] [facility] Jun 21, 2024 06:11 PM LR MICROBIOLOGY RE PORT: Reporting Lab: [facility] [IA# [id number]] [place] [address] Accession [UID]: [id number] [[id number]] Received: Jun 21, 2024@18:11 Collection sample: BLOOD [...] -=--=--=--=--=--=--=-- Performing Laboratory: Bacteriology Report Performed By: [facility] [CLIA# [id number]] [place] [address] [facility] Jun 08, 2024 11:00 AM LR MICROBIOLOGY RE PORT: Reporting Lab: [facility] [CLIA# [id number]] [place] [address] Accession [UID]: [id number] [[id number]] Received: Jun 08, 2024@11:00 Collection sample: URINE Collection date: Jun 08, 2024 11:00 Provider: MARYBETH POWELL Comment on specimen: urine Test(s) ordered: CULTURE & SUSCEPTIBILITY...... completed: Jun 09, 2024 * BACTERIOLOGY FINAL REPORT => Jun 09, 2024 19:12 TECH CODE: [id number] CULTURE RESULTS: ESCHERICHIA COLI - Quantity: >100,000 [...] -=--=--=--=--=--=--=-- Performing Laboratory: Bacteriology Report Performed By: [facility] [CLIA# [id number]] [employer] [place] [address] [facility]
--- OUTSIDE RECORDS SUMMARY | 2024-07-16 07:33 | XMS_ITS ---
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 Date/Time Encounter Type Encounter Description Reason Pro vider Source Jun 23, 2024 11:38 PM Inpatient Visit DAILY HOSPITALIZATION DATA [facility] Encounter Template Text not used by [place] [...] 07:00 AM [facility] Jun 27, 2024 07:30 AM [facility] Jun 27, 2024 08:00 AM AMBULATORY - MEDICINE [facility] Jul 03, 2024 05:55 AM AMBULATORY - NONE [facility] Jul 13, 2024 08:15 AM AMBULATORY - NONE [facility] Active, Pending, and Scheduled Orders This section includes a listing of several types of active, pending, and scheduled orders, including clinic medications orders, diagnostic test orders, procedure orders and consult orders; where the start date of the order is 45 days before the date of the Encounter or 45 days after the date of theEncounter. The data comes from all [facility] facilities. Test Date/Time Test Type Test Details Facility Name May 28, 2024 12:00 AM Laboratory - Blood Bank Order TYPE & SCREEN - LAB BLOOD SP [facility] Jun 08, 2024 09:57 AM Laboratory - Chemi stry Order URINALYSIS URINE WC ONCE [facility] Jun 12, 2024 12:00 AM Laboratory - Chemi stry Order BNP PLASMA SP ONCE [facility] Jun 21, 2024 05:45 PM Laboratory - Blood Bank Order TYPE & SCREEN - LAB BLOOD [facility] Jul 03, 2024 12:00 AM Laboratory - Blood Bank Order TYPE & SCREEN - LAB BLOOD [facility] Jul 16, 2024 12:00 AM Laboratory - Chemi stry Order CBC BLOOD SP ONCE [facility] Jul 17, 2024 12:00 AM Laboratory - Chemi stry Order BASIC METABOLIC PANEL+MG PLASMA SP ONCE [facility] Lab Results: +/- 30 [...] Range Comment Jul 10, 2024 07:16 AM [facility] PHOSPHORUS Specimen Type: PLASMA No comment entered. Ordering Provider: JUANCARLOS ECHOLS Report Released Date/Time: Jul 09, 2024 12:23 PM Reporting Lab: [facility] [address] Performing Lab: [facility] [address] PHOSPHORUS 3.0 mg/dL 2.3-4.3 Jul 10, 2024 07:16 AM [facility] BASIC METABOLIC PANEL+MG Specimen Type: PLASMA No comment entered. Ordering Provider: JUANCARLOS ECHOLS Report Released Date/Time: Jul 09, 2024 12:23 PM Reporting Lab: [facility] [address] Performing Lab: [facility] [address] CREATININE 0.7 mg/dL 0.7-1.2 UREA NITROGEN 27 mg/dL H 8-26 GLUCOSE 104 mg/dL H 70-100 SODIUM 133 mmol/L L 136-145 POTASSIUM 4.3 mmol/L 3.5-5.1 CHLORIDE 102 mmol/L 98-107 CO2 19 mmol/L L 22-29 CALCIUM 10.1 mg/dL 8.4-10.2 MAGNESIUM 1.9 mg/dL 1.6-2.6 ANION GAP 12 mmol/L 5-15 .CREAT EGFR(CKD-EPI) >90 >60 Jul 10, 2024 07:15 AM [facility] CBC Specimen Type: BLOOD No comment entered. Ordering Provider: JUANCARLOS ECHOLS S Report Released Date/Time: Jul 09, 2024 12:23 PM Reporting Lab: [facility] [address] Performing Lab: [facility] [address] WBC 18.8 H 4.0-11.0 RBC 5.08 4.60-6.20 HGB 15.9 g/dL 13.5-17.9 HCT 46.8 41.0-54.0 MCV 92.1 fL 80.0-100.0 MCH 31.3 pg 27.0-33.0 MCHC 34.0 g/dL 32.0-37.5 PLT 479 H 150-400 MPV 10.2 fL 9.1-13.0 RDW 13.7 11.5-14.5 Jul 09, 2024 07:08 AM [facility] CBC Specimen Type: BLOOD No comment entered. Ordering Provider: QUYNH WEISS AV Report Released Date/Time: Jul 08, 2024 06:18 PM Reporting Lab: [facility] [address] Performing Lab: [facility] [address] WBC 15.3 H 4.0-11.0 RBC 4.91 4.60-6.20 HGB 15.1 g/dL 13.5-17.9 HCT 45.7 41.0-54.0 MCV 93.1 fL 80.0-100.0 MCH 30.8 pg 27.0-33.0 MCHC 33.0 g/dL 32.0-37.5 PLT 443 H 150-400 MPV 10.0 fL 9.1-13.0 RDW 13.5 11.5-14.5 Jul 08, 2024 10:50 AM [facility] URINALYSIS Specimen Type: URINE No comment entered. Ordering Provider: KATELYNN PERSON Report Released Date/Time: Jul 08, 2024 08:41 AM Reporting Lab: [facility] [address] Performing Lab: [facility] [address] URINE COLOR YELLOW SPECIFIC GRAVITY >1.050 H [...] NEGATIVE NEGATIVE Jul 08, 2024 09:54 AM [facility] CBC Specimen Type: BLOOD Comment: Specimen received in Lab at: 0952 Ordering Provider: JUANCARLOS ECHOLS Report Released Date/Time: Jul 07, 2024 04:49 PM Reporting Lab: [facility] [address] Performing Lab: [facility] [address] WBC 17.5 H 4.0-11.0 RBC 4.88 4.60-6.20 HGB 14.9 g/dL 13.5-17.9 HCT 45.7 41.0-54.0 MCV 93.6 fL 80.0-100.0 MCH 30.5 pg 27.0-33.0 MCHC 32.6 g/dL 32.0-37.5 PLT 472 H 150-400 MPV 10.2 fL 9.1-13.0 RDW 13.7 11.5-14.5 Jul 08, 2024 09:54 AM [facility] PHOSPHORUS Specimen Type: PLASMA Comment: Specimen received in Lab at: 0952 Ordering Provider: JUANCARLOS ECHOLS Report Released Date/Time: Jul 07, 2024 04:49 PM Reporting Lab: [facility] [address] Performing Lab: [facility] [address] PHOSPHORUS 2.6 mg/dL 2.3-4.3 Jul 08, 2024 09:54 AM [facility] BASIC METABOLIC PANEL+MG Specimen Type: PLASMA Comment: Specimen received in Lab at: 0952 Ordering Provider: JUANCARLOS ECHOLS Report Released Date/Time: Jul 07, 2024 04:49 PM Reporting Lab: [facility] [address] Performing Lab: [facility] [address] CREATININE 0.9 mg/dL 0.7-1.2 UREA NITROGEN 26 mg/dL 8-26 GLUCOSE 128 mg/dL H 70-100 SODIUM 134 mmol/L L 136-145 POTASSIUM 3.4 mmol/L L 3.5-5.1 CHLORIDE 100 mmol/L 98-107 CO2 24 mmol/L 22-29 CALCIUM 9.8 mg/dL 8.4-10.2 MAGNESIUM 1.8 mg/dL 1.6-2.6 ANION GAP 10 mmol/L 5-15 .CREAT EGFR(CKD-EPI) >90 >60 Jul 07, 2024 02:00 PM [facility] C DIFF PANEL Specimen Type: FECES No comment entered. Ordering Provider: JEVON ZAZUETA Report Released Date/Time: Jul 07, 2024 12:26 PM Reporting Lab: [facility] [address] Performing Lab: [facility] [address] C DIFF TOX B GENE PCR NEGATIVE Negative Jul 07, 2024 07:41 AM [facility] PHOSPHORUS Specimen Type: PLASMA No comment entered. Ordering Provider: JEVON ZAZUETA Report Released Date/Time: Jul 06, 2024 03:44 PM Reporting Lab: [facility] [address] Performing Lab: [facility] [address] PHOSPHORUS 3.1 mg/dL 2.3-4.3 Jul 07, 2024 07:41 AM [facility] BASIC METABOLIC PANEL+MG Specimen Type: PLASMA No comment entered. Ordering Provider: JEVON ZAZUETA Report Released Date/Time: Jul 06, 2024 03:44 PM Reporting Lab: [facility] [address] Performing Lab: [facility] [address] CREATININE 0.9 mg/dL 0.7-1.2 UREA NITROGEN 20 mg/dL 8-26 GLUCOSE 157 mg/dL H 70-100 SODIUM 136 mmol/L 136-145 POTASSIUM 3.7 mmol/L 3.5-5.1 CHLORIDE 102 mmol/L 98-107 CO2 21 mmol/L L 22-29 CALCIUM 9.8 mg/dL 8.4-10.2 MAGNESIUM 1.9 mg/dL 1.6-2.6 ANION GAP 13 mmol/L 5-15 .CREAT EGFR(CKD-EPI) >90 >60 Jul 07, 2024 07:40 AM [facility] CBC Specimen Type: BLOOD No comment entered. Ordering Provider: JEVON ZAZUETA Report Released Date/Time: Jul 06, 2024 03:44 PM Reporting Lab: [facility] [address] Performing Lab: [facility] [address] WBC 21.2 H 4.0-11.0 RBC 5.09 4.60-6.20 HGB 15.9 g/dL 13.5-17.9 HCT 48.3 41.0-54.0 MCV 94.9 fL 80.0-100.0 MCH 31.2 pg 27.0-33.0 MCHC 32.9 g/dL 32.0-37.5 PLT 500 H 150-400 MPV 10.3 fL 9.1-13.0 RDW 13.6 11.5-14.5 Jul 06, 2024 07:21 AM [facility] CBC Specimen Type: BLOOD No comment entered. Ordering Provider: JEVON ZAZUETA Report Released Date/Time: Jul 05, 2024 01:22 PM Reporting Lab: [facility] [address] Performing Lab: [facility] [address] WBC 18.0 H 4.0-11.0 RBC 4.83 4.60-6.20 HGB 14.6 g/dL 13.5-17.9 HCT 45.5 41.0-54.0 MCV 94.2 fL 80.0-100.0 MCH 30.2 pg 27.0-33.0 MCHC 32.1 g/dL 32.0-37.5 PLT 368 150-400 MPV 10.4 fL 9.1-13.0 RDW 13.6 11.5-14.5 Jul 06, 2024 07:21 AM [facility] PHOSPHORUS Specimen Type: PLASMA No comment entered. Ordering Provider: JEVON ZAZUETA Report Released Date/Time: Jul 05, 2024 01:22 PM Reporting Lab: [facility] [address] Performing Lab: [facility] [address] PHOSPHORUS 3.6 mg/dL 2.3-4.3 Jul 06, 2024 07:21 AM [facility] BASIC METABOLIC PANEL+MG Specimen Type: PLASMA No comment entered. Ordering Provider: JEVON ZAZUETA Report Released Date/Time: Jul 05, 2024 01:22 PM Reporting Lab: [facility] [address] Performing Lab: [facility] [address] CREATININE 0.7 mg/dL 0.7-1.2 UREA NITROGEN 12 mg/dL 8-26 GLUCOSE 108 mg/dL H 70-100 SODIUM 138 mmol/L 136-145 POTASSIUM 3.4 mmol/L L 3.5-5.1 CHLORIDE 104 mmol/L 98-107 CO2 20 mmol/L L 22-29 CALCIUM 9.3 mg/dL 8.4-10.2 MAGNESIUM 1.9 mg/dL 1.6-2.6 ANION GAP 14 mmol/L 5-15 .CREAT EGFR(CKD-EPI) >90 >60 Jul 05, 2024 07:17 AM [facility] MAGNESIUM Specimen Type: PLASMA No comment entered. Ordering Provider: JUANCARLOS ECHOLS Report Released Date/Time: Jul 04, 2024 09:39 AM Reporting Lab: [facility] [address] Performing Lab: [facility] [address] MAGNESIUM 2.0 mg/dL 1.6-2.6 Jul 05, 2024 07:17 AM [facility] PHOSPHORUS Specimen Type: PLASMA No comment entered. Ordering Provider: JUANCARLOS ECHOLS S Report Released Date/Time: Jul 04, 2024 09:39 AM Reporting Lab: [facility] [address] Performing Lab: [facility] [address] PHOSPHORUS 2.0 mg/dL L 2.3-4.3 Jul 05, 2024 07:17 AM [facility] BASIC METABOLIC PANEL+MG Specimen Type: PLASMA No comment entered. Ordering Provider: JUANCARLOS ECHOLS S Report Released Date/Time: Jul 04, 2024 09:39 AM Reporting Lab: [facility] [address] Performing Lab: [facility] [address] CREATININE 0.7 mg/dL 0.7-1.2 UREA NITROGEN 12 mg/dL 8-26 GLUCOSE 84 mg/dL 70-100 SODIUM 135 mmol/L L 136-145 POTASSIUM 3.8 mmol/L 3.5-5.1 CHLORIDE 104 mmol/L 98-107 CO2 24 mmol/L 22-29 CALCIUM 9.3 mg/dL 8.4-10.2 MAGNESIUM 2.0 mg/dL 1.6-2.6 ANION GAP 7 mmol/L 5-15 .CREAT EGFR(CKD-EPI) >90 >60 Jul 05, 2024 07:16 AM [facility] CBC Specimen Type: BLOOD No comment entered. Ordering Provider: JUANCARLOS ECHOLS S Report Released Date/Time: Jul 04, 2024 09:39 AM Reporting Lab: [facility] [address] Performing Lab: [facility] [address] WBC 18.3 H 4.0-11.0 RBC 4.49 L 4.60-6.20 HGB 14.1 g/dL 13.5-17.9 HCT 43.4 41.0-54.0 MCV 96.7 fL 80.0-100.0 MCH 31.4 pg 27.0-33.0 MCHC 32.5 g/dL 32.0-37.5 PLT 317 150-400 MPV 10.0 fL 9.1-13.0 RDW 13.9 11.5-14.5 Jul 04, 2024 07:17 AM [facility] PHOSPHORUS Specimen Type: PLASMA No comment entered. Ordering Provider: GABINO CAMERON Report Released Date/Time: Jul 03, 2024 06:31 PM Reporting Lab: [facility] [address] Performing Lab: [facility] [address] PHOSPHORUS 2.8 mg/dL 2.3-4.3 Jul 04, 2024 07:17 AM [facility] BASIC METABOLIC PANEL+MG Specimen Type: PLASMA No comment entered. Ordering Provider: GABINO CAMERON Report Released Date/Time: Jul 03, 2024 06:31 PM Reporting Lab: [facility] [address] Performing Lab: [facility] [address] CREATININE 0.7 mg/dL 0.7-1.2 UREA NITROGEN 16 mg/dL 8-26 GLUCOSE 129 mg/dL H 70-100 SODIUM 137 mmol/L 136-145 POTASSIUM 3.7 mmol/L 3.5-5.1 CHLORIDE 107 mmol/L 98-107 CO2 22 mmol/L 22-29 CALCIUM 9.0 mg/dL 8.4-10.2 MAGNESIUM 1.9 mg/dL 1.6-2.6 ANION GAP 8 mmol/L 5-15 .CREAT EGFR(CKD-EPI) >90 >60 Jul 04, 2024 07:16 AM [facility] CBC Specimen Type: BLOOD No comment entered. Ordering Provider: GABINO CAMERON Report Released Date/Time: Jul 03, 2024 06:31 PM Reporting Lab: [facility] [address] Performing Lab: [facility] [address] WBC 20.6 H 4.0-11.0 RBC 4.63 4.60-6.20 HGB 14.2 g/dL 13.5-17.9 HCT 43.4 41.0-54.0 MCV 93.7 fL 80.0-100.0 MCH 30.7 pg 27.0-33.0 MCHC 32.7 g/dL 32.0-37.5 PLT 329 150-400 MPV 10.4 fL 9.1-13.0 RDW 13.8 11.5-14.5 Jul 04, 2024 07:16 AM [facility] CBC & DIFF Specimen Type: BLOOD Comment: Manual Differential Performed Ordering Provider: GABINO CAMERON Report Released Date/Time: Jul 03, 2024 06:31 PM Reporting Lab: [facility] [address] Performing Lab: [facility] [address] WBC 20.6 H 4.0-11.0 RBC 4.63 4.60-6.20 [...] MORPHOLOGY PRESENT Jul 04, 2024 07:15 AM [facility] BNP Specimen Type: PLASMA No comment entered. Ordering Provider: GABINO CAMERON Report Released Date/Time: Jul 03, 2024 06:31 PM Reporting Lab: [facility] [address] Performing Lab: [facility] [address] BNP 292 pg/mL H <99 Jul 03, 2024 10:32 PM [facility] FINGERSTICK GLUCOSE Specimen Type: BLOOD Comment: Save Result Nurse Notified Ordering Provider: KATELYNN PERSON Report Released Date/Time: Jul 03, 2024 10:50 PM Reporting Lab: [facility] [address] Performing Lab: [facility] [address] FINGERSTICK GLUCOSE 126 mg/dL H 70-100 Jul 03, 2024 05:33 PM [facility] FINGERSTICK GLUCOSE Specimen Type: BLOOD Comment: Save Result Nurse Notified Ordering Provider: KATELYNN PERSON Report Released Date/Time: Jul 03, 2024 05:46 PM Reporting Lab: [facility] [address] Performing Lab: [facility] [address] FINGERSTICK GLUCOSE 141 mg/dL H 70-100 Jul 03, 2024 02:31 PM [facility] POC ABG/ELECTROLYTES Specimen Type: ARTERIAL BLOOD Comment: FIO2 = 97% Patient Temp: 36.0 C Sample Type = ARTERIAL Ordering Provider: MAZIN ARREDONDO Report Released Date/Time: Jul 03, 2024 01:48 PM Reporting Lab: [facility] [address] Performing Lab: [facility] [address] POC PH 7.387 7.35-7.45 POC PCO2 34.4 [...] H 80.0-105.0 Jul 03, 2024 01:05 PM [facility] POC ABG/ELECTROLYTES Specimen Type: ARTERIAL BLOOD Comment: FIO2 = 53% Patient Temp: 36.2 C Sample Type = ARTERIAL Ordering Provider: MAZIN ARREDONDO Report Released Date/Time: Jul 03, 2024 01:48 PM Reporting Lab: [facility] [address] Performing Lab: [facility] [address] POC PH 7.280 L 7.35-7.45 POC PCO2 [...] mm[Hg] 80.0-105.0 Jul 03, 2024 06:15 AM [facility] URINALYSIS Specimen Type: URINE No comment entered. Ordering Provider: MARYBETH POWELL Report Released Date/Time: Jun 12, 2024 04:01 PM Reporting Lab: [facility] [address] Performing Lab: [facility] [address] URINE COLOR YELLOW SPECIFIC GRAVITY 1.031 1.003-1.03 [...] 250 NEGATIVE Jul 03, 2024 06:13 AM [facility] CBC Specimen Type: BLOOD No comment entered. Ordering Provider: MARYBETH POWELL Report Released Date/Time: Jun 12, 2024 03:59 PM Reporting Lab: [facility] [address] Performing Lab: [facility] [address] WBC 15.8 H 4.0-11.0 RBC 5.11 4.60-6.20 HGB 16.1 g/dL 13.5-17.9 HCT 49.1 41.0-54.0 MCV 96.1 fL 80.0-100.0 MCH 31.5 pg 27.0-33.0 MCHC 32.8 g/dL 32.0-37.5 PLT 357 150-400 MPV 9.8 fL 9.1-13.0 RDW 13.7 11.5-14.5 Jun 24, 2024 09:50 AM [facility] BASIC METABOLIC PANEL+MG Specimen Type: PLASMA Comment: Specimen received in Lab at: 0948 Ordering Provider: JEVON ZAZUETA Report Released Date/Time: Jun 23, 2024 06:07 PM Reporting Lab: [facility] [address] Performing Lab: [facility] [address] CREATININE 0.8 mg/dL 0.7-1.2 UREA NITROGEN 13 mg/dL 8-26 GLUCOSE 135 mg/dL H 70-100 SODIUM 135 mmol/L L 136-145 POTASSIUM 3.6 mmol/L 3.5-5.1 CHLORIDE 103 mmol/L 98-107 CO2 24 mmol/L 22-29 CALCIUM 9.2 mg/dL 8.4-10.2 MAGNESIUM 1.9 mg/dL 1.6-2.6 ANION GAP 8 mmol/L 5-15 .CREAT EGFR(CKD-EPI) >90 >60 Jun 24, 2024 09:50 AM [facility] CBC Specimen Type: BLOOD Comment: Specimen received in Lab at: 0948 Ordering Provider: JEVON ZAZUETA Report Released Date/Time: Jun 23, 2024 06:07 PM Reporting Lab: [facility] [address] Performing Lab: [facility] [address] WBC 15.5 H 4.0-11.0 RBC 4.93 4.60-6.20 HGB 15.2 g/dL 13.5-17.9 HCT 46.5 41.0-54.0 MCV 94.3 fL 80.0-100.0 MCH 30.8 pg 27.0-33.0 MCHC 32.7 g/dL 32.0-37.5 PLT 223 150-400 MPV 11.4 fL 9.1-13.0 RDW 13.9 11.5-14.5 Jun 23, 2024 07:52 AM [facility] COMPREHENSIVE METABOLIC PANEL+MG Specimen Type: PLASMA No comment entered. Ordering Provider: JEVON ZAZUETA Report Released Date/Time: Jun 22, 2024 05:51 PM Reporting Lab: [facility] [address] Performing Lab: [facility] [address] CREATININE 0.7 mg/dL 0.7-1.2 UREA NITROGEN 16 [...] >90 >60 Jun 23, 2024 07:52 AM [facility] CBC & DIFF Specimen Type: BLOOD Comment: Automated Differential Performed Ordering Provider: JEVON ZAZUETA Report Released Date/Time: Jun 22, 2024 05:51 PM Reporting Lab: [facility] [address] Performing Lab: [facility] [address] WBC 14.9 H 4.0-11.0 RBC 5.09 4.60-6.20 [...] 0.1 0.0-0.1 Jun 22, 2024 06:10 PM [facility] CBC Specimen Type: BLOOD No comment entered. Ordering Provider: JEVON ZAZUETA Report Released Date/Time: Jun 22, 2024 05:51 PM Reporting Lab: [facility] [address] Performing Lab: [facility] [address] WBC 16.9 H 4.0-11.0 RBC 5.28 4.60-6.20 HGB 16.9 g/dL 13.5-17.9 HCT 50.4 41.0-54.0 MCV 95.5 fL 80.0-100.0 MCH 32.0 pg 27.0-33.0 MCHC 33.5 g/dL 32.0-37.5 PLT 223 150-400 MPV 10.9 fL 9.1-13.0 RDW 14.0 11.5-14.5 Jun 22, 2024 06:10 PM [facility] COMPREHENSIVE METABOLIC PANEL+MG Specimen Type: PLASMA No comment entered. Ordering Provider: JEVON ZAZUETA Report Released Date/Time: Jun 22, 2024 05:51 PM Reporting Lab: [facility] [address] Performing Lab: [facility] [address] CREATININE 0.7 mg/dL 0.7-1.2 UREA NITROGEN 17 [...] >90 >60 Jun 21, 2024 06:48 PM [facility] URINALYSIS Specimen Type: URINE No comment entered. Ordering Provider: DELIA MARTINEZ Report Released Date/Time: Jun 21, 2024 05:45 PM Reporting Lab: [facility] [address] Performing Lab: [facility] [address] URINE COLOR YELLOW SPECIFIC GRAVITY 1.041 H [...] 500 NEGATIVE Jun 21, 2024 05:34 PM [facility] POC CREATININE Specimen Type: BLOOD No comment entered. Ordering Provider: DELIA MARTINEZ Report Released Date/Time: Jun 21, 2024 06:07 PM Reporting Lab: [facility] [address] Performing Lab: [facility] [address] POC CREATININE 1.1 mg/dL 0.6-1.3 Jun 21, 2024 05:30 PM [facility] POC ABG/LACTATE Specimen Type: VENOUS BLOOD No comment entered. Ordering Provider: DELIA MARTINEZ Report Released Date/Time: Jun 21, 2024 06:07 PM Reporting Lab: [facility] [address] Performing Lab: [facility] [address] POC PH 7.470 H 7.31-7.41 POC PCO2 31.2 mm[Hg] L 41.00-51 .0 0 POC PO2 46 mm[Hg] H 35.0-40.0 POC TCO2 24 mmol/L 24.0-29.0 POC HCO3 22.7 mmol/L L 23.0-28.0 POC BE ECT -1 mmol/L POC SO2 85 H 70-75 POC LACTATE 1.85 mmol/L 0.90-1.70 Jun 21, 2024 05:24 PM [facility] PROTHROMBIN TIME/INR Specimen Type: PLASMA No comment entered. Ordering Provider: DELIA MARTINEZ Report Released Date/Time: Jun 21, 2024 05:30 PM Reporting Lab: [facility] [address] Performing Lab: [facility] [address] .INR 1.2 H 0.8-1.1 .PT 13.9 s H 9.4-12.5 Jun 21, 2024 05:24 PM [facility] LIPASE Specimen Type: PLASMA No comment entered. Ordering Provider: DELIA MARTINEZ Report Released Date/Time: Jun 21, 2024 05:30 PM Reporting Lab: [facility] [address] Performing Lab: [facility] [address] LIPASE 32 U/L <60 Jun 21, 2024 05:24 PM [facility] EXTRA GOLD GEL TUBE Specimen Type: SERUM No comment entered. Ordering Provider: DELIA MARTINEZ Report Released Date/Time: Jun 21, 2024 05:41 PM Reporting Lab: [facility] [address] Performing Lab: [facility] [address] EXTRA GOLD GEL TUBE RECEIVED Jun 21, 2024 05:24 PM [facility] COMPREHENSIVE METABOLIC PANEL+MG Specimen Type: PLASMA No comment entered. Ordering Provider: DELIA MARTINEZ Report Released Date/Time: Jun 21, 2024 05:30 PM Reporting Lab: [facility] [id number] Performing Lab: [facility] [address] CREATININE 0.9 mg/dL 0.7-1.2 UREA NITROGEN 29 [...] mg/dL <0.5 Jun 21, 2024 05:24 PM [facility] CBC & DIFF Specimen Type: BLOOD Comment: Manual Differential Performed Ordering Provider: DELIA MARTINEZ Report Released Date/Time: Jun 21, 2024 05:30 PM Reporting Lab: [facility] [phone] Performing Lab: [facility] [id number] WBC 21.3 H 4.0-11.0 RBC 5.48 4.60-6.20 [...] MORPHOLOGY PRESENT Jun 08, 2024 10:59 AM [facility] PROTHROMBIN TIME/INR Specimen Type: PLASMA No comment entered. Ordering Provider: MARYBETH POWELL Report Released Date/Time: May 28, 2024 09:02 AM Reporting Lab: [facility] [phone] Performing Lab: [facility] [address] .INR 1.0 0.8-1.1 .PT 11.8 s 9.4-12.5 Jun 08, 2024 10:59 AM [facility] HEMOGLOBIN A1C Specimen Type: [...] May 28, 2024 09:02 AM Reporting Lab: [facility] [phone] Performing Lab: [facility] [phone] HEMOGLOBIN A1C 4.9 4.0-6.0 Jun 08, 2024 10:59 AM [facility] CBC Specimen Type: BLOOD No comment entered. Ordering Provider: MARYBETH POWELL Report Released Date/Time: May 28, 2024 09:02 AM Reporting Lab: [facility] [phone] Performing Lab: [facility] [phone] WBC 16.1 H 4.0-11.0 RBC 5.02 4.60-6.20 HGB 16.0 g/dL 13.5-17.9 HCT 47.1 41.0-54.0 MCV 93.8 fL 80.0-100.0 MCH 31.9 pg 27.0-33.0 MCHC 34.0 g/dL 32.0-37.5 PLT 228 150-400 MPV 10.3 fL 9.1-13.0 RDW 14.6 H 11.5-14.5 Jun 08, 2024 10:59 AM [facility] BASIC METABOLIC PANEL+MG Specimen Type: PLASMA No comment entered. Ordering Provider: MARYBETH POWELL Report Released Date/Time: May 28, 2024 09:02 AM Reporting Lab: [facility] [phone] Performing Lab: [facility] [phone] CREATININE 0.9 mg/dL 0.7-1.2 UREA NITROGEN 15 [...] Source Jun 23, 2024 10:28 PM 3 [facility] Jun 23, 2024 09:28 PM 4 [facility] Jun 23, 2024 06:07 PM 6 [facility] Jun 23, 2024 05:21 PM 7 [facility] Jun 23, 2024 05:36 AM 6 [facility] Social History: Smoking Status (Most current) and [...] 15, 2024 08:30 AM VA-TOBACCO FORMER USER [facility] Tobacco Use History This section includes a history of the smoking, or tobacco-related health factors, that were collected on or before the date of the Encounter. The data comes from the [place] facility where the Encounter took place. Date/Time Smoking Status/Tobacco Use Comment F acility May 15, 2024 08:30 AM CA-TOBACCO QUIT 15 YRS OR MORE [facility] May 06, 2023 11:30 AM VA-TOBACCO FORMER USER [facility] May 06, 2023 11:30 AM VA-TOBACCO QUIT 15 YRS OR MORE [facility] Jun 04, 2022 09:00 AM VA-TOBACCO FORMER USER [facility] Jun 04, 2022 09:00 AM VA-TOBACCO QUIT 15 YRS OR MORE [facility] Jul 10, 2021 08:00 AM VA-TOBACCO FORMER USER [facility] Jul 10, 2021 08:00 AM VA-TOBACCO QUIT 5 TO < 15 YRS [facility] May 23, 2020 08:30 AM VA-TOBACCO FORMER USER [facility] May 23, 2020 08:30 AM VA-TOBACCO QUIT 5 TO < 15 YRS [facility] Mar 20, 2019 04:03 PM VA-TOBACCO FORMER USER [facility] Mar 20, 2019 04:03 PM VA-TOBACCO QUIT 5 TO < 15 YRS [facility] Mar 21, 2018 08:13 AM FORMER TOBACCO USER 7Y OR GREATE R [facility] Feb 24, 2017 09:24 AM FORMER TOBACCO USER 7Y OR GREATE R [facility] January 07, 2016 08:01 AM FORMER TOBACCO USE >1Y <7Y [facility] Feb 03, 2015 07:58 AM FORMER TOBACCO USE <1Y [facility] Feb 26, 2014 08:41 AM CURRENT TOBACCO USER [facility] May 13, 2011 01:45 PM CURRENT TOBACCO USER [facility] Advance Directives: All historical [...] 2 VIEWS PA AND LAT: FLACA WEAVER [id number] -1950 M Exm Date: JUL 08, 2024@10:09 Req Phys: KATELYNN PERSON Loc: 07-08-2024@11:49 Img Loc: MAIN X-RAY Service: [facility] [place] [address] (Case 24 COMPLETE) CHEST 2 VIEWS PA AND LAT (RAD Detailed) CPT:74269 Reason for Study: Uptrending WBC, POD 5 [...] 08, 2024 Date Verified: JUL 08, 2024 Copy Operator E-Sig: Report: CHEST 2 VIEWS PA [...] cardiopulmonary disease. READING PHYSICIAN: Sarbjit Vaughn M.D. -[id number] 07/08/2024 12:[address] [facility] National Teleradiology Program [phone] (For Medical Practitioner Use Only) Attention Patients / Veterans: If you have questions or concerns about these test results, please contact your ordering provider or primary care team. Primary Interpreting Staff: RADIOLOGY,OUTSIDE SERVICE, Staff Physician / RADIOLOGY,OUTSIDE SERVICE [facility] Jul 08, 2024 10:[address] (AP) ABDOMEN/PELVIS W CONTRAST: FLACA WEAVER [id number] -1950 M Exm Date: JUL 08, 2024@10:00 Req Phys: KATELYNN PERSON Loc: 2KG/07-08-2024@12:07 [facility] [place] Loc: CT IMAGING Service: [place] [address] (Case 22 COMPLETE) CT (AP) ABDOMEN/PELVIS W CONTRAST(CT Detailed) CPT:47310 Contrast Media : Non-ionic Iodinated Reason for [...] PLASMA .CREAT EGFR(CKD-E >90 Ref: >=60 Allergies: ([place] only) TERAZOSIN (Mar 13, 2015) Report Status: Verified Date Reported: JUL 08, 2024 Date Verified: JUL 08, 2024 Copy Operator E-Sig: Report: CT (AP) ABDOMEN/PELVIS W [...] as noted above READING PHYSICIAN: Celestino Blanc -[phone] 07/08/2024 13:04 [facility] [employer] Teleradiology Program [phone] (For Medical Practitioner Use Only) Attention Patients / Veterans: If you have questions or concerns about these test results, please contact your ordering provider or primary care team. Primary Interpreting Staff: RADIOLOGY,OUTSIDE SERVICE, Staff Physician / RADIOLOGY,OUTSIDE SERVICE [facility] Jun 22, 2024 11:49 AM ABSCESS DRAIN PLACEMENT PERITONEAL (P): FLACA WEAVER [id number] -1950 M Exm Date: JUN 22, 2024@11:49 Req Phys: ANGELA HOLDEN Loc: [facility]06-22-2024@17:14 Img Loc: INTERVENTIONAL RADIOLOGY Service: [facility] [place] [address] (Case [id number] COMPLETE) IR PERITONEAL/RETROPERITONEAL PER(ANI Detailed) CPT:50296 Reason for Study: diverticulitis with abscess (Case 3570 COMPLETE) IR MOD SEDATION 10-22 MIN (ANI Detailed) CPT:28417 Clinical History: IS NOT under investigation for COVID-19 or is COVID-19 negative 73 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 please place abscess drain. Contact number for responsible provider who can be reached for any questions or notifications of critical findings: [phone] n/a LAST CREATININE 0.9 (06/21/24) Report Status: Verified Date Reported: JUN 22, 2024 Date Verified: JUN 22, 2024 Copy Operator E-Sig:/ES/LISA PENDLETON MD Report: PROCEDURES: Placement [...] anesthesia. Using real-time CT fluoroscopy, a 5 [place] [employer] All Starsesis catheter was advanced into the collection in the left pelvis. A wire was coiled in the collection. The tract into the collection was dilated to accommodate the 12 Mexican locking pigtail drainage catheter. There was return [...] Primary Interpreting Staff: LISA PENDLETON MD, RADIOLOGIST (Copy Operator) /JRLISA [facility] Jun 22, 2024 11:[address] NEEDLE PLACEMENT (P): FLACA WEAVER [id number] -1950 M Exm Date: JUN 22, 2024@11:48 Req Phys: ANGELA HOLDEN Loc: [facility]/06-22-2024@17:14 Img Loc: CT IMAGING Service: [facility] [place] [address] (Case [id number] COMPLETE) CT SCAN FOR NEEDLE PLACEMENT (CT Detailed) CPT:04335 Reason for Study: l pelvic abscess drain Clinical History: Report Status: Verified Date Reported: JUN 22, 2024 Date Verified: JUN 22, 2024 Copy Operator E-Sig:/ES/LISA PENDLETON MD Report: PROCEDURES: Placement [...] anesthesia. Using real-time CT fluoroscopy, a 5 [place] All Starsesis catheter was advanced into the collection in the left pelvis. A wire was coiled in the collection. The tract into the collection was dilated to accommodate the 12 Mexican locking pigtail drainage catheter. There was return [...] Primary Interpreting Staff: LISA PENDLETON MD, RADIOLOGIST (Copy Operator) /JRT LISA PENDLETON [facility] Jun 21, 2024 06:[address] (AP) ABDOMEN/PELVIS (P): FLACA WEAVER [id number] -1950 M Exm Date: JUN 21, 2024@18:09 Req Phys: DELIA MARTINEZ Loc: [facility] EMERGENCY DEPT WALK-IN (Re Img Loc: CT IMAGING Service: [place] [address] (Case [id number] COMPLETE) CT (AP) ABDOMEN/PELVIS W CONTRAST(CT Detailed) CPT:75357 Contrast Media : Non-ionic Iodinated Reason for [...] PLASMA .CREAT EGFR(CKD-E >90 Ref: >=60 Allergies: ([place] only) TERAZOSIN (Mar 13, 2015) Defer to [...] 21, 2024 Date Verified: JUN 21, 2024 Copy Operator E-Sig:/ES/CARLOS A CUNNINGHAM DO Report: EXAMINATION: [...] Interpreting Staff: CARLOS A CUNNINGHAM DO, RADIOLOGIST (Copy Operator) /CARLOS A ROWELL [facility] May 25, 2024 09:00 AM IR FISTULOGRAM OR SINOGRAM : FLACA WEAVER [id number] -1950 M Exm Date: MAY 25, 2024@09:00 Req Phys: AMINTA PRUITT Loc: [facility] X[facility] INTERVENTIONAL RADIO Img Loc: INTERVENTIONAL RADIOLOGY Service: [place] [address] (Case [id number] COMPLETE) IR FISTULOGRAM OR SINOGRAM (ANI Detailed) CPT:78086 Contrast Media : unspecified contrast media Reason for Study: s/p drain placement for diverticular abscess- assess for drain Clinical History: [place] IS NOT under investigation for COVID-19 or [...] 25, 2024 Date Verified: MAY 25, 2024 Copy Operator E-Sig:/ES/DAVID BURNS MD Report: PROCEDURES 05/25/2024 [...] Primary Interpreting Staff: DAVID BURNS MD, RADIOLOGIST (Copy Operator) /CSS DAVDI BURNS [facility] May 25, 2024 08:[address] (AP) ABDOMEN/PELVIS (P): FLACA WEAVER [id number] -1950 M Exm Date: MAY 25, 2024@08:23 Req Phys: DAVID BURNS Pat Loc: [facility] XRAY INTERVENTIONAL RADIO Img Loc: CT IMAGING Service: [place] [address] (Case [id number] COMPLETE) CT (AP) ABDOMEN/PELVIS W/O CONTRA(CT Detailed) CPT:13913 Reason for Study: assess abscess and possible [...] PLASMA .CREAT EGFR(CKD-E >90 Ref: >=60 Allergies: ([place] only) TERAZOSIN (Mar 13, 2015) Report Status: Verified Date Reported: MAY 25, 2024 Date Verified: MAY 25, 2024 Copy Operator E-Sig:/ES/JESSENIA GOODMAN MD Report: EXAM: CT [...] pelvis 04/23/2024.; CT abdomen pelvis 05/05/2020 FINDINGS: ANIMAL BEHAVIOURIST: Pigtail catheter projecting over the left hemipelvis [...] Primary Interpreting Staff: JESSENIA GOODMAN MD, RADIOLOGIST (Copy Operator) Primary Interpreting Resident: YOHANNES MELO DO, ADVANCED NURSING PROFESSOR /JESSENIA LOUIE [facility] Pathology Reports: +/- 30 [...] COSIGNER: URGENCY: STATUS: COMPLETED $APHDR Reporting Lab: [facility] [CLIA# [id number]] [place] [address] - - - - - - - [...] - PATHOLOGY REPORT Accession No. [id number] - - - - - - - [...] - PATHOLOGY REPORT Accession No. [id number] - - - - - - - [...] Second circumferential surgical margin, en face; E-F: Battery Recharger diverticula; G: Battery Recharger section of mesentery; H: Random inside sales representative section of additional adipose tissue [...] One colonic tissue ring, bisected transversely. [facility]. (D[facility]: Microscopic examination performed. DIAGNOSIS: 1. Colon, sigmoid, sigmoidectomy-- - Diverticulosis with perforation and focal abscess formation 2. Colon, anastomotic rings, excision-- - Viable colonic mucosa without diagnostic abnormality /es/ EDUARDO PALOMARES MD STAFF PATHOLOGIST Signed Jul 06, 2024@10:40 Performing Laboratory: Surgical Pathology Report Performed By: [facility] [CLIA# [id number]] [place] [address] $FTR - - - - - - - - - - - - - - - - - - - - - - - - - - - - - - - - - - - - - - - - (End of report) EDUARDO PALOMARES MD [facility] Date Jul 06, 2024 - - - - - - - - - - - - - - - - - - - - - - - - - - - - - - - - - - - - - - - - FLACA WEAVER STANDARD FORM 515 ID:[id number] SEX:M :1950 AGE: 73 LOC:40552 ADM:Jun DX:DIVERTICULITIS PCP: Jatinder Cabrera /alexi/ EDUARDO PALOMARES MD STAFF PATHOLOGIST Signed: 07/06/2024 10:40 EDUARDO PALOMARES [facility] Jun 22, 2024 01:15 PM LR MICROBIOLOGY RE PORT: Reporting Lab: [facility] [CLIA# [id number]] [place] [address] Accession [UID]: [id number] [[id number]] Received: Jun 22, 2024@13:38 Collection sample: FLUID Collection date: Jun 22, 2024 13:15 Provider: ANGELA HOLDEN Comment on specimen: LLQ ABSCESS, RECEIVED IN ANAEROBIC TRANSPORT VIAL Test(s) ordered: GRAM STAIN.................... completed: Jun 22, 2024 15:03 CULTURE & SUSCEPTIBILITY...... completed: Jun 25, 2024 * BACTERIOLOGY FINAL REPORT => Jun 25, 2024 10:56 [facility] CODE: [id number] GRAM STAIN: DIRECT SMEAR of specimen before [...] -=--=--=--=--=--=--=-- Performing Laboratory: Bacteriology Report Performed By: [facility] [CLIA# [id number]] [place] [address] [facility] Jun 22, 2024 01:15 PM LR MICROBIOLOGY RE PORT: Reporting Lab: [facility] [CLIA# [id number]] [place] [address] Accession [UID]: [id number] [[id number]] Received: Jun 22, 2024@13:38 Collection sample: FLUID Collection date: Jun 22, 2024 13:15 Provider: ANGELA HOLDEN Comment on specimen: LLQ ABSCESS, RECEIVED IN ANAEROBIC TRANSPORT VIAL Test(s) ordered: ANAEROBIC CULTURE............. completed: Jun 28, 2024 * BACTERIOLOGY FINAL REPORT => Jun 28, 2024 10:08 TECH CODE: [id number] CULTURE RESULTS: HEAVY GROWTH MIXED ANAEROBES Comment: including the followin+ Bacteroides fragilis 4+ Bacteroides vulgatus 4+ Clostridium innocuum Beta-lactamase negative 4+ Bacteroides caccae 4+ Parvimonas micra 4+ Bacteroides uniformis 4+ Gemella morbillorum 4+ anaerobic small, Gram Positive Rods 4+ Bacteroides thetaiotaomicron Standard workup is now complete. Bacteriology Remark(s): THIS REPORT IS FINAL =--=--=--=--=--=--=--=--=--= --=--=--=--=--=--=--=--=--=- -=--=--=--=--=--=--=-- Performing Laboratory: Bacteriology Report Performed By: [facility] [CLIA# [id number]] [place] [address] [facility] Jun 21, 2024 06:12 PM LR MICROBIOLOGY RE PORT: Reporting Lab: [facility] [CLIA# [id number]] [place] [address] Accession [UID]: [id number] [[id number]] Received: Jun 21, 2024@18:12 Collection sample: BLOOD [...] -=--=--=--=--=--=--=-- Performing Laboratory: Bacteriology Report Performed By: [facility] [IA# [id number]] [place] [address] [facility] Jun 21, 2024 06:11 PM LR MICROBIOLOGY RE PORT: Reporting Lab: [facility] [IA# [id number]] [place] [address] Accession [UID]: [id number] [[id number]] Received: Jun 21, 2024@18:11 Collection sample: BLOOD [...] -=--=--=--=--=--=--=-- Performing Laboratory: Bacteriology Report Performed By: [facility] [CLIA# [id number]] [place] [address] [facility] Jun 08, 2024 11:00 AM LR MICROBIOLOGY RE PORT: Reporting Lab: [facility] [CLIA# [id number]] [place] [address] Accession [UID]: [id number] [[id number]] Received: Jun 08, 2024@11:00 Collection sample: URINE Collection date: Jun 08, 2024 11:00 Provider: MARYBETH POWELL Comment on specimen: urine Test(s) ordered: CULTURE & SUSCEPTIBILITY...... completed: Jun 09, 2024 * BACTERIOLOGY FINAL REPORT => Jun 09, 2024 19:12 TECH CODE: [id number] CULTURE RESULTS: ESCHERICHIA COLI - Quantity: >100,000 [...] -=--=--=--=--=--=--=-- Performing Laboratory: Bacteriology Report Performed By: [facility] [CLIA# [id number]] [place] [address] [facility]
--- OUTSIDE RECORDS SUMMARY | 2024-07-16 07:34 | XMS_ITS ---
[place] DAILY HOSPITALIZATION DATA [facility] HCS Encounter Summary Created on: July 16, 2024 FLACA WEAVER : 1950 Sex: Male Author Name [facility] [place] Organization [facility] [place] [place] Address [address] [place] [address] Care Team Providers Care Multimedia Instructional Designer Name Role Phone JATINDER CABRERA Primary [...] PART A Sep 29, 2016 PART A [id number] [phone] JUDY WEAVER PATIENT Selected Encounter This section includes the information on record at [place] for the Encounter. Date/Time Encounter Type Encounter Description Reason Pro vider Source Jun 24, 2024 12:13 AM Inpatient Visit DAILY HOSPITALIZATION DATA [facility] Alex Encounter Template Text not used by [place] [...] 27, 2024 07:00 AM AMBULATORY - NONE [facility] Jun 27, 2024 07:30 AM AMBULATORY - MEDICINE [facility] Jun 27, 2024 08:00 AM AMBULATORY - MEDICINE [facility] Jul 03, 2024 05:55 AM [facility] Jul 13, 2024 08:15 AM [...] of theEncounter. The data comes from all [facility] facilities. Test Date/Time Test Type Test Details [...] SCREEN - LAB BLOOD [facility] Jul 03, 2024 12:00 AM Laboratory [...] Jul 09, 2024 12:23 PM Reporting Lab: [facility] [address] Performing Lab: [facility] [address] PHOSPHORUS 3.0 mg/dL 2.3-4.3 Jul 10, 2024 07:16 AM [facility] BASIC METABOLIC PANEL+MG Specimen Type: PLASMA No comment entered. Ordering Provider: JUANCARLOS ECHOLS S Report Released Date/Time: Jul 09, 2024 12:23 PM Reporting Lab: [facility] [address] Performing Lab: [facility] [address] CREATININE 0.7 mg/dL 0.7-1.2 UREA NITROGEN 27 [...] Jul 09, 2024 12:23 PM Reporting Lab: [facility] [address] Performing Lab: [facility] [address] WBC 18.8 H 4.0-11.0 RBC 5.08 4.60-6.20 [...] Jul 08, 2024 06:18 PM Reporting Lab: [facility] [address] Performing Lab: [facility] [address] WBC 15.3 H 4.0-11.0 RBC 4.91 4.60-6.20 [...] Jul 08, 2024 08:41 AM Reporting Lab: [facility] [address] Performing Lab: [facility] [address] URINE COLOR YELLOW SPECIFIC GRAVITY >1.050 H [...] Jul 07, 2024 04:49 PM Reporting Lab: [facility] [address] Performing Lab: [facility] [address] WBC 17.5 H 4.0-11.0 RBC 4.88 4.60-6.20 [...] Jul 07, 2024 04:49 PM Reporting Lab: [facility] [address] Performing Lab: [facility] [address] PHOSPHORUS 2.6 mg/dL 2.3-4.3 Jul 08, 2024 09:54 AM [facility] BASIC METABOLIC PANEL+MG Specimen Type: PLASMA Comment: Specimen received in Lab at: [id number] Ordering Provider: JUANCARLOS ECHOLS Report Released Date/Time: Jul 07, 2024 04:49 PM Reporting Lab: [facility] [address] Performing Lab: [facility] [address] CREATININE 0.9 mg/dL 0.7-1.2 UREA NITROGEN 26 [...] Jul 07, 2024 12:26 PM Reporting Lab: [facility] [address] Performing Lab: [facility] [address] C DIFF TOX B GENE PCR NEGATIVE Negative Jul 07, 2024 07:41 AM [facility] PHOSPHORUS Specimen Type: PLASMA No comment entered. Ordering Provider: JEVON ZAZUETA Report Released Date/Time: Jul 06, 2024 03:44 PM Reporting Lab: [facility] [address] Performing Lab: [facility] [address] PHOSPHORUS 3.1 mg/dL 2.3-4.3 Jul 07, 2024 07:41 AM [facility] BASIC METABOLIC PANEL+MG Specimen Type: PLASMA No comment entered. Ordering Provider: JEVON ZAZUETA Report Released Date/Time: Jul 06, 2024 03:44 PM Reporting Lab: [facility] [address] Performing Lab: [facility] [address] CREATININE 0.9 mg/dL 0.7-1.2 UREA NITROGEN 20 [...] Jul 06, 2024 03:44 PM Reporting Lab: [facility] [address] Performing Lab: [facility] [address] WBC 21.2 H 4.0-11.0 RBC 5.09 4.60-6.20 [...] Jul 05, 2024 01:22 PM Reporting Lab: [facility] [address] Performing Lab: [facility] [address] WBC 18.0 H 4.0-11.0 RBC 4.83 4.60-6.20 [...] Jul 05, 2024 01:22 PM Reporting Lab: [facility] [address] Performing Lab: [facility] [address] PHOSPHORUS 3.6 mg/dL 2.3-4.3 Jul 06, 2024 07:21 AM [facility] BASIC METABOLIC PANEL+MG Specimen Type: PLASMA No comment entered. Ordering Provider: JEVON ZAZUETA Report Released Date/Time: Jul 05, 2024 01:22 PM Reporting Lab: [facility] [address] Performing Lab: [facility] [address] CREATININE 0.7 mg/dL 0.7-1.2 UREA NITROGEN 12 [...] Jul 04, 2024 09:39 AM Reporting Lab: [facility] [address] Performing Lab: [facility] [address] MAGNESIUM 2.0 mg/dL 1.6-2.6 Jul 05, 2024 07:17 AM [facility] PHOSPHORUS Specimen Type: PLASMA No comment entered. Ordering Provider: JUANCARLOS ECHOLS S Report Released Date/Time: Jul 04, 2024 09:39 AM Reporting Lab: [facility] [address] Performing Lab: [facility] [address] PHOSPHORUS 2.0 mg/dL L 2.3-4.3 Jul 05, 2024 07:17 AM [facility] BASIC METABOLIC PANEL+MG Specimen Type: PLASMA No comment entered. Ordering Provider: JUANCARLOS ECHOLS S Report Released Date/Time: Jul 04, 2024 09:39 AM Reporting Lab: [facility] [address] Performing Lab: [facility] [address] CREATININE 0.7 mg/dL 0.7-1.2 UREA NITROGEN 12 [...] Jul 04, 2024 09:39 AM Reporting Lab: [facility] [address] Performing Lab: [facility] [address] WBC 18.3 H 4.0-11.0 RBC 4.49 L [...] Jul 03, 2024 06:31 PM Reporting Lab: [facility] [address] Performing Lab: [facility] [address] CREATININE 0.7 mg/dL 0.7-1.2 UREA NITROGEN 16 [...] Jul 03, 2024 06:31 PM Reporting Lab: [facility] [address] Performing Lab: [facility] [address] PHOSPHORUS 2.8 mg/dL 2.3-4.3 Jul 04, 2024 07:16 AM [facility] CBC Specimen Type: BLOOD No comment entered. Ordering Provider: GABINO CAMERON Report Released Date/Time: Jul 03, 2024 06:31 PM Reporting Lab: [facility] [address] Performing Lab: [facility] [address] WBC 20.6 H 4.0-11.0 RBC 4.63 4.60-6.20 [...] Jul 03, 2024 06:31 PM Reporting Lab: [facility] [address] Performing Lab: [facility] [address] WBC 20.6 H 4.0-11.0 RBC 4.63 4.60-6.20 [...] Jul 03, 2024 06:31 PM Reporting Lab: [facility] [address] Performing Lab: [facility] [address] BNP 292 pg/mL H <99 Jul 03, 2024 10:32 PM [facility] FINGERSTICK GLUCOSE Specimen Type: BLOOD Comment: Save Result Nurse Notified Ordering Provider: KATELYNN PERSON Report Released Date/Time: Jul 03, 2024 10:50 PM Reporting Lab: [facility] [address] Performing Lab: [facility] [address] FINGERSTICK GLUCOSE 126 mg/dL H 70-100 Jul 03, 2024 05:33 PM [facility] FINGERSTICK GLUCOSE Specimen Type: BLOOD Comment: Save Result Nurse Notified Ordering Provider: KATELYNN PERSON Report Released Date/Time: Jul 03, 2024 05:46 PM Reporting Lab: [facility] [address] Performing Lab: [facility] [address] FINGERSTICK GLUCOSE 141 mg/dL H 70-100 Jul 03, 2024 02:31 PM [facility] POC ABG/ELECTROLYTES Specimen Type: ARTERIAL BLOOD Comment: FIO2 = 97% Patient Temp: 36.0 C Sample Type = ARTERIAL Ordering Provider: MAZIN ARREDONDO Report Released Date/Time: Jul 03, 2024 01:48 PM Reporting Lab: [facility] [address] Performing Lab: [facility] [address] POC PH 7.387 7.35-7.45 POC PCO2 34.4 [...] Jul 03, 2024 01:48 PM Reporting Lab: [facility] [address] Performing Lab: [facility] [address] POC PH 7.280 L 7.35-7.45 POC PCO2 [...] Jun 12, 2024 04:01 PM Reporting Lab: [facility] [address] Performing Lab: [facility] [address] URINE COLOR YELLOW SPECIFIC GRAVITY 1.031 1.003-1.03 [...] Jun 12, 2024 03:59 PM Reporting Lab: [facility] [address] Performing Lab: [facility] [address] WBC 15.8 H 4.0-11.0 RBC 5.11 4.60-6.20 [...] Jun 23, 2024 06:07 PM Reporting Lab: [facility] [address] Performing Lab: [facility] [address] CREATININE 0.8 mg/dL 0.7-1.2 UREA NITROGEN 13 [...] Jun 23, 2024 06:07 PM Reporting Lab: [facility] [address] Performing Lab: [facility] [address] WBC 15.5 H 4.0-11.0 RBC 4.93 4.60-6.20 [...] Jun 22, 2024 05:51 PM Reporting Lab: [facility] [address] Performing Lab: [facility] [address] CREATININE 0.7 mg/dL 0.7-1.2 UREA NITROGEN 16 [...] Jun 22, 2024 05:51 PM Reporting Lab: [facility] [address] Performing Lab: [facility] [address] WBC 14.9 H 4.0-11.0 RBC 5.09 4.60-6.20 [...] Jun 22, 2024 05:51 PM Reporting Lab: [facility] [address] Performing Lab: [facility] [address] CREATININE 0.7 mg/dL 0.7-1.2 UREA NITROGEN 17 [...] >90 >60 Jun 22, 2024 06:10 PM [facility] CBC Specimen Type: BLOOD No comment entered. Ordering Provider: JEVON ZAZUETA Report Released Date/Time: Jun 22, 2024 05:51 PM Reporting Lab: [facility] [address] Performing Lab: [facility] [address] WBC 16.9 H 4.0-11.0 RBC 5.28 4.60-6.20 HGB 16.9 g/dL 13.5-17.9 HCT 50.4 41.0-54.0 MCV 95.5 fL 80.0-100.0 MCH 32.0 pg 27.0-33.0 MCHC 33.5 g/dL 32.0-37.5 PLT 223 150-400 MPV 10.9 fL 9.1-13.0 RDW 14.0 11.5-14.5 Jun 21, 2024 06:48 PM [facility] URINALYSIS Specimen Type: URINE No comment entered. Ordering Provider: DELIA MARTINEZ Report Released Date/Time: Jun 21, 2024 05:45 PM Reporting Lab: [facility] [address] Performing Lab: [facility] [address] URINE COLOR YELLOW SPECIFIC GRAVITY 1.041 H [...] Jun 21, 2024 06:07 PM Reporting Lab: [facility] [address] Performing Lab: [facility] [address] POC CREATININE 1.1 mg/dL 0.6-1.3 Jun 21, 2024 05:30 PM [facility] POC ABG/LACTATE Specimen Type: VENOUS BLOOD No comment entered. Ordering Provider: DELIA MARTINEZ Report Released Date/Time: Jun 21, 2024 06:07 PM Reporting Lab: [facility] [address] Performing Lab: [facility] [address] POC PH 7.470 H 7.31-7.41 POC PCO2 [...] Jun 21, 2024 05:30 PM Reporting Lab: [facility] [address] Performing Lab: [facility] [address] .INR 1.2 H 0.8-1.1 .PT 13.9 s H 9.4-12.5 Jun 21, 2024 05:24 PM [facility] LIPASE Specimen Type: PLASMA No comment entered. Ordering Provider: DELIA MARTINEZ Report Released Date/Time: Jun 21, 2024 05:30 PM Reporting Lab: [facility] [address] Performing Lab: [facility] [address] LIPASE 32 U/L <60 Jun 21, 2024 05:24 PM [facility] EXTRA GOLD GEL TUBE Specimen Type: SERUM No comment entered. Ordering Provider: DELIA MARTINEZ Report Released Date/Time: Jun 21, 2024 05:41 PM Reporting Lab: [facility] [address] Performing Lab: [facility] [address] EXTRA GOLD GEL TUBE RECEIVED Jun 21, 2024 05:24 PM [facility] COMPREHENSIVE METABOLIC PANEL+MG Specimen Type: PLASMA No comment entered. Ordering Provider: DELIA MARTINEZ Report Released Date/Time: Jun 21, 2024 05:30 PM Reporting Lab: [facility] [address] Performing Lab: [facility] [address] CREATININE 0.9 mg/dL 0.7-1.2 UREA NITROGEN 29 [...] Jun 21, 2024 05:30 PM Reporting Lab: [facility] [address] Performing Lab: [facility] [address] WBC 21.3 H 4.0-11.0 RBC 5.48 4.60-6.20 [...] MORPHOLOGY PRESENT Jun 08, 2024 10:59 AM [facility] PROTHROMBIN TIME/INR Specimen Type: PLASMA No comment entered. Ordering Provider: MARYBETH POWELL Report Released Date/Time: May 28, 2024 09:02 AM Reporting Lab: [facility] [address] Performing Lab: [facility] [address] .INR 1.0 0.8-1.1 .PT 11.8 s 9.4-12.5 Jun 08, 2024 10:59 AM [facility] HEMOGLOBIN A1C Specimen Type: [...] May 28, 2024 09:02 AM Reporting Lab: [facility] [address] Performing Lab: [facility] [address] HEMOGLOBIN A1C 4.9 4.0-6.0 Jun 08, 2024 10:59 AM [facility] CBC Specimen Type: BLOOD No comment entered. Ordering Provider: MARYBETH POWELL Report Released Date/Time: May 28, 2024 09:02 AM Reporting Lab: [facility] [address] Performing Lab: [facility] [address] WBC 16.1 H 4.0-11.0 RBC 5.02 4.60-6.20 HGB 16.0 g/dL 13.5-17.9 HCT 47.1 41.0-54.0 MCV 93.8 fL 80.0-100.0 MCH 31.9 pg 27.0-33.0 MCHC 34.0 g/dL 32.0-37.5 PLT 228 150-400 MPV 10.3 fL 9.1-13.0 RDW 14.6 H 11.5-14.5 Jun 08, 2024 10:59 AM [facility] BASIC METABOLIC PANEL+MG Specimen Type: PLASMA No comment entered. Ordering Provider: MARYBETH POWELL Report Released Date/Time: May 28, 2024 09:02 AM Reporting Lab: [facility] [address] Performing Lab: [facility] [address] CREATININE 0.9 mg/dL 0.7-1.2 UREA NITROGEN 15 [...] [facility] Mar 20, 2019 04:03 PM [place]-TOBACCO QUIT 5 TO < 15 YRS [facility] [...] Mar 23, 2016 [facility] Rad[facility] Reports: +/- 30 days of [...] 2 VIEWS PA AND LAT: MEGFLACA YAMIL [id number] -1950 M Exm Date: JUL 08, 2024@10:09 Req Phys: KATELYNN PERSON Loc: 2KG07-08-2024@11:49 Img Loc: MAIN X-RAY Service: [place] [address] (Case [id number] COMPLETE) CHEST 2 VIEWS PA AND LAT (RAD Detailed) CPT:45162 Reason for Study: Uptrending WBC, POD 5 [...] 08, 2024 Date Verified: JUL 08, 2024 Golf Course Manager E-Sig: Report: CHEST 2 VIEWS PA AND LAT HISTORY: Uptrending WBC, POD 5 COMPARISON: CT chest 11/12/2022 TECHNIQUE: Frontal and lateral views of the chest, submitted to the [place] National Teleradiology Program (NTP) for interpretation. FINDINGS: Lungs: Clear. No focal consolidation. No pulmonary edema. Pleura: No pleural effusion or pneumothorax. Mediastinum: Normal size and contour. Bones: Unremarkable. Impression: No acute cardiopulmonary disease. READING PHYSICIAN: Sarbjit Vaughn M.D. -[id number] 07/08/2024 12:46 [facility] National Teleradiology Program [phone] (For Medical Practitioner Use Only) Attention Patients / Veterans: If you have questions or concerns about these test results, please contact your ordering provider or primary care team. Primary Interpreting Staff: RADIOLOGY,OUTSIDE SERVICE, Staff Physician / RADIOLOGY,OUTSIDE SERVICE [facility] Jul 08, 2024 10:[address] (AP) ABDOMEN/PELVIS W CONTRAST: FLACA WEAVER [id number] -1950 Ex Date: JUL 08, 2024@10:00 Req Phys: KATELYNN PERSON Pat Loc: 2KG/07-08-2024@12:07 Img Loc: CT IMAGING Service: [place] [address] (Case 22 COMPLETE) CT (AP) ABDOMEN/PELVIS W CONTRAST(CT Detailed) CPT:22373 Contrast Media : Non-ionic Iodinated Reason for [...] PLASMA .CREAT EGFR(CKD-E >90 Ref: >=60 Allergies: ([place] only) TERAZOSIN (Mar 13, 2015) Report Status: Verified Date Reported: JUL 08, 2024 Date Verified: JUL 08, 2024 Golf Course Manager E-Sig: Report: CT (AP) ABDOMEN/PELVIS W CONTRAST HISTORY: POD 5, Uptrending WBC - Concern for Abscess/other infection COMPARISON: June 21, 2024 TECHNIQUE: CT abdomen and pelvis was performed after intravenous contrast. Axial, sagittal and coronal reformatted images. The study was performed at the local [place] facility and images were sent to the [place] National Teleradiology Program (NTP) for interpretation. Number [...] as noted above READING PHYSICIAN: Celestino Blanc -[id number] 07/08/2024 13:04 [facility] Onfidoradiology Program [phone] (For Medical Practitioner Use Only) Attention Patients / Veterans: If you have questions or concerns about these test results, please contact your ordering provider or primary care team. Primary Interpreting Staff: RADIOLOGY,OUTSIDE SERVICE, Staff Physician / RADIOLOGY,OUTSIDE SERVICE [facility] Jun 22, 2024 11:49 AM ABSCESS DRAIN PLACEMENT PERITONEAL (P): FLACA WEAVER [id number] -1950 M Exm Date: JUN 22, 2024@11:49 Req Phys: ANGELA HOLDEN [facility] Loc: [facility]06-22-2024@17:14 Img Loc: INTERVENTIONAL RADIOLOGY Service: [place] [address] (Case [id number] COMPLETE) IR PERITONEAL/RETROPERITONEAL PER(ANI Detailed) CPT:41806 Reason for Study: diverticulitis with abscess (Case [id number] COMPLETE) IR MOD SEDATION 10-22 MIN (ANI Detailed) CPT:41875 Clinical History: [place] IS NOT under investigation for COVID-19 or is COVID-19 negative 73 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 please place abscess drain. Contact number for responsible provider who can be reached for any questions or notifications of critical findings: [phone] n/a LAST CREATININE 0.9 (10/24/24) Report Status: Verified Date Reported: JUN 22, 2024 Date Verified: JUN 22, 2024 Golf Course Manager E-Sig:/ES/LISA PENDLETON MD Report: PROCEDURES: Placement [...] Using real-time CT fluoroscopy, a 5 Bulgarian [employer] catheter was advanced into the collection in the left pelvis. A wire was coiled in the collection. The tract into the collection was dilated to accommodate the 12 Bulgarian locking pigtail drainage catheter. There was return [...] Primary Interpreting Staff: LISA PENDLETON MD, RADIOLOGIST (Golf Course Manager) /JRT LISA PENDLETON [facility] Jun 22, 2024 11:[address] NEEDLE PLACEMENT (P): FLACA WEAVER [id number] -1950 M Exm Date: JUN 22, 2024@11:48 Req Phys: ANGELA HOLDEN Loc: [facility]06-22-2024@17:14 Img Loc: CT IMAGING Service: [place] [address] (Case [id number] COMPLETE) CT SCAN FOR NEEDLE PLACEMENT (CT Detailed) CPT:15505 Reason for Study: l pelvic abscess drain Clinical History: Report Status: Verified Date Reported: JUN 22, 2024 Date Verified: JUN 22, 2024 Golf Course Manager E-Sig:/ES/LISA PENDLETON MD Report: PROCEDURES: Placement [...] Using real-time CT fluoroscopy, a 5 Bulgarian [employer] catheter was advanced into the collection in the left pelvis. A wire was coiled in the collection. The tract into the collection was dilated to accommodate the 12 Bulgarian locking pigtail drainage catheter. There was return [...] Primary Interpreting Staff: LISA PENDLETON MD, RADIOLOGIST (Golf Course Manager) /JRT LISA PENDLETON [facility] Jun 21, 2024 06:[address] (AP) ABDOMEN/PELVIS (P): FLACA WEAVER [id number] -1950 M Exm Date: JUN 21, 2024@18:09 Req Phys: DELIA MARTINEZ Loc: [facility] EMERGENCY DEPT WALK-IN (Re Img Loc: CT IMAGING Service: [place] [address] (Case [id number] COMPLETE) CT (AP) ABDOMEN/PELVIS W CONTRAST(CT Detailed) CPT:89134 Contrast Media : Non-ionic Iodinated Reason for [...] PLASMA .CREAT EGFR(CKD-E >90 Ref: >=60 Allergies: ([place] only) TERAZOSIN (Mar 13, 2015) Defer to [...] 21, 2024 Date Verified: JUN 21, 2024 Golf Course Manager E-Sig:/ALEXI/CARLOS A CUNNINGHAM DO Report: EXAMINATION: CT [...] Interpreting Staff: CARLOS A CUNNINGHAM DO, RADIOLOGIST (Golf Course Manager) /KMB CARLOS A CUNNINGHAM [facility] May 25, 2024 09:00 AM IR FISTULOGRAM OR SINOGRAM : FLACA WEAVER [id number] -1950 M Ex Date: MAY 25, 2024@09:00 Req Phys: AMINTA PRUITT Loc: [facility] XRAY INTERVENTIONAL RADIO Img Loc: INTERVENTIONAL RADIOLOGY Service: [place] [address] (Case [id number] COMPLETE) IR FISTULOGRAM OR SINOGRAM (ANI Detailed) CPT:23236 Contrast Media : unspecified contrast media Reason [...] 25, 2024 Date Verified: MAY 25, 2024 Golf Course Manager E-Sig:/ES/DAVID BURNS MD Report: PROCEDURES 05/25/2024 [...] Primary Interpreting Staff: DAVID BURNS MD, RADIOLOGIST (Golf Course Manager) /CSS DAVID BURNS [facility] May 25, 2024 08:[address] (AP) ABDOMEN/PELVIS (P): FLACA WEAVER [id number] -1950 M Exm Date: MAY 25, 2024@08:23 Req Phys: DAVID BURNS Pat Loc: [facility] XRAY INTERVENTIONAL RADIO Img Loc: CT IMAGING Service: [place] [address] (Case [id number] COMPLETE) CT (AP) ABDOMEN/PELVIS W/O CONTRA(CT Detailed) CPT:39973 Reason for Study: assess abscess and possible [...] PLASMA .CREAT EGFR(CKD-E >90 Ref: >=60 Allergies: ([place] only) TERAZOSIN (Mar 13, 2015) Report Status: Verified Date Reported: MAY 25, 2024 Date Verified: MAY 25, 2024 Golf Course Manager E-Sig:/ES/JESSENIA GOODMAN MD Report: EXAM: CT [...] pelvis 04/23/2024.; CT abdomen pelvis 05/05/2020 FINDINGS: BRANCH CONTROLLER: Pigtail catheter projecting over the left hemipelvis [...] Primary Interpreting Staff: JESSENIA GOODMAN MD, RADIOLOGIST (Golf Course Manager) Primary Interpreting Resident: YOHANNES MELO DO, FINANCIAL ADVISOR /JESSENIA LOUIE [facility] Pathology Reports: +/- [...] Reporting Lab: [facility] [CLIA# [id number]] [place] [address] - - - - - - - [...] - PATHOLOGY REPORT Accession No. [id number] - - - - - - - [...] - PATHOLOGY REPORT Accession No. [id number] - - - - - - - [...] Second circumferential surgical margin, en face; E-F: Corporate Development Analyst diverticula; G: Corporate Development Analyst section of mesentery; H: Random c s s representative section of additional adipose tissue fragment. [...] One colonic tissue ring, bisected transversely. SS. (D)[facility] MICROSCOPIC DESCRIPTION: Microscopic examination performed. DIAGNOSIS: 1. Colon, sigmoid, sigmoidectomy-- - Diverticulosis with perforation and focal abscess formation 2. Colon, anastomotic rings, excision-- - Viable colonic mucosa without diagnostic abnormality /alexi/ EDUARDO PALOMARES MD STAFF PATHOLOGIST Signed Jul 06, 2024@10:40 Performing Laboratory: Surgical Pathology Report Performed By: [facility] [CLIA# [id number]] [place] [address] $FTR - - - - - - - - - - - - - - - - - - - - - - - - - - - - - - - - - - - - - - - - (End of report) EDUARDO PALOMARES MD [facility] Date Jul 06, 2024 - - - - - - - - - - - - - - - - - - - - - - - - - - - - - - - - - - - - - - - - [employer] STANDARD FORM 515 ID:[id number] SEX:M :1950 AGE: 73 LOC:[id number] ADM:Jun DX:DIVERTICULITIS PCP: Jatinder Cabrera /alexi/ EDUARDO PALOMARES MD STAFF PATHOLOGIST Signed: 07/06/2024 10:40 EDUARDO PALOMARES [facility] Jun 22, 2024 01:15 PM LR MICROBIOLOGY RE PORT: Reporting Lab: [facility] [CLIA# [id number]] [place] [address] Accession [UID]: [id number] [[id number]] Received: Jun 22, 2024@13:38 Collection sample: FLUID Collection date: Jun 22, 2024 13:15 Provider: ANGELA HOLDEN Comment on specimen: LLQ ABSCESS, RECEIVED IN ANAEROBIC TRANSPORT VIAL Test(s) ordered: GRAM STAIN.................... completed: Jun 22, 2024 15:03 CULTURE & SUSCEPTIBILITY...... completed: Jun 25, 2024 * BACTERIOLOGY FINAL REPORT => Jun 25, 2024 10:56 TECH CODE: [id number] GRAM STAIN: DIRECT SMEAR of specimen before [...] Performed By: [facility] [CLIA# [id number]] [place] [address] [facility] Jun 22, 2024 01:15 PM LR MICROBIOLOGY RE PORT: Reporting Lab: [facility] [CLIA# [id number]] [place] [address] Accession [UID]: [id number] [[id number]] Received: Jun 22, 2024@13:38 Collection sample: FLUID Collection date: Jun 22, 2024 13:15 Provider: ANGELA HOLDEN Comment on specimen: LLQ ABSCESS, RECEIVED IN ANAEROBIC TRANSPORT VIAL Test(s) ordered: ANAEROBIC CULTURE............. completed: Jun 28, 2024 * BACTERIOLOGY FINAL REPORT => Jun 28, 2024 10:08 TECH CODE: [id number] CULTURE RESULTS: HEAVY GROWTH MIXED ANAEROBES Comment: [...] Performed By: [facility] [CLIA# [id number]] [place] [address] [facility] Jun 21, 2024 06:12 PM LR MICROBIOLOGY RE PORT: Reporting Lab: [facility] [CLIA# [id number]] [place] [address] Accession [UID]: [id number] [[id number]] Received: Jun 21, 2024@18:12 Collection sample: BLOOD [...] Performed By: [facility] [CLIA# [id number]] [place] [address] [facility] Jun 21, 2024 06:11 PM LR MICROBIOLOGY RE PORT: Reporting Lab: [facility] [CLIA# [id number]] [place] [address] Accession [UID]: [id number] [[id number]] Received: Jun 21, 2024@18:11 Collection sample: BLOOD [...] Performed By: [facility] [CLIA# [id number]] [place] [address] [facility] Jun 08, 2024 11:00 AM LR MICROBIOLOGY RE PORT: Reporting Lab: [facility] [CLIA# [id number]] [place] [address] Accession [UID]: [id number] [[id number]] Received: Jun 08, 2024@11:00 Collection sample: URINE Collection date: Jun 08, 2024 11:00 Provider: MARYBETH POWELL Comment on specimen: urine Test(s) ordered: CULTURE & SUSCEPTIBILITY...... completed: Jun 09, 2024 * BACTERIOLOGY FINAL REPORT => Jun 09, 2024 19:12 TECH CODE: [id number] CULTURE RESULTS: ESCHERICHIA COLI - Quantity: >100,000 [...] Performed By: [facility] [CLIA# [id number]] [place] [address] [facility]
--- OUTSIDE RECORDS SUMMARY | 2024-07-16 07:34 | XMS_ITS ---
Author Name [facility] [place] [facility] [place] Address [address] [place] [address] Care Team Providers Care Helmet Hat Sweatband Puncher Name Role Phone JATINDER CABRERA Primary Care [...] PART A Sep 29, 2016 PART A [id number] [phone] JUDY WEAVER PATIENT Selected Encounter This section includes the information on record at [place] for the Encounter. Date/Time Encounter Type Encounter Description Reason Pro vider Source Jun 23, 2024 01:00 AM Inpatient Visit ADMIN PAT ACTIVTIES ([employer]) SYSTEM,CIS-ARK IHE Encounter Template Text not used by [place] [...] 27, 2024 07:00 AM AMBULATORY - NONE [facility] Jun 27, 2024 07:30 AM AMBULATORY - MEDICINE [facility] Jun 27, 2024 08:00 AM AMBULATORY - MEDICINE [facility] Jul 03, 2024 05:55 AM AMBULATORY - NONE [facility] Jul 13, 2024 08:15 AM AMBULATORY NONE [facility] Active, Pending, and Scheduled Orders This [...] stry Order URINALYSIS URINE WC ONCE [facility] Jun 12, 2024 12:00 AM Laboratory - Chemi stry Order BNP PLASMA SP ONCE [facility] Jun 21, 2024 05:45 PM Laboratory - Blood Bank Order TYPE & SCREEN - LAB BLOOD [facility] Jul 03, 2024 12:00 AM Laboratory - Blood Bank Order TYPE & SCREEN - LAB BLOOD [facility] Jul 16, 2024 12:00 AM Laboratory - Chemi stry Order CBC BLOOD SP ONCE [facility] Jul 17, 2024 12:00 AM Laboratory - Chemi stry Order BASIC METABOLIC PANEL+MG PLASMA SP ONCE [facility] Lab [...] Comment Jul 10, 2024 07:[address] [facility] PHOSPHORUS Specimen Type: PLASMA No comment entered. Ordering Provider: JUANCARLOS ECHOLS Report Released Date/Time: Jul 09, 2024 12:23 PM Reporting Lab: [facility] [address] Performing Lab: [facility] [address] PHOSPHORUS 3.0 mg/dL 2.3-4.3 Jul 10, 2024 07:[address] [facility] BASIC METABOLIC PANEL+MG Specimen Type: PLASMA No comment entered. Ordering Provider: JUANCARLOS ECHOLS S Report Released Date/Time: Jul 09, 2024 12:23 PM Reporting Lab: [facility] [address] Performing Lab: [facility] [address] CREATININE 0.7 mg/dL 0.7-1.2 UREA NITROGEN 27 mg/dL H 8-26 GLUCOSE 104 mg/dL H 70-100 SODIUM 133 mmol/L L 136-145 POTASSIUM 4.3 mmol/L 3.5-5.1 CHLORIDE 102 mmol/L 98-107 CO2 19 mmol/L L 22-29 CALCIUM 10.1 mg/dL 8.4-10.2 MAGNESIUM 1.9 mg/dL 1.6-2.6 ANION GAP 12 mmol/L 5-15 .CREAT EGFR(CKD-EPI) >90 >60 Jul 10, 2024 07:[address] [facility] CBC Specimen Type: BLOOD No comment entered. Ordering Provider: JUANCARLOS ECHOLS S Report Released Date/Time: Jul 09, 2024 12:23 PM Reporting Lab: [facility] [address] Performing Lab: [facility] [address] WBC 18.8 H 4.0-11.0 RBC 5.08 4.60-6.20 HGB 15.9 g/dL 13.5-17.9 HCT 46.8 41.0-54.0 MCV 92.1 fL 80.0-100.0 MCH 31.3 pg 27.0-33.0 MCHC 34.0 g/dL 32.0-37.5 PLT 479 H 150-400 MPV 10.2 fL 9.1-13.0 RDW 13.7 11.5-14.5 Jul 09, 2024 07:[address] [facility] CBC Specimen Type: BLOOD No comment entered. Ordering Provider: QUYNH WEISS AV Report Released Date/Time: Jul 08, 2024 06:18 PM Reporting Lab: [facility] [address] Performing Lab: [facility] [address] WBC 15.3 H 4.0-11.0 RBC 4.91 4.60-6.20 HGB 15.1 g/dL 13.5-17.9 HCT 45.7 41.0-54.0 MCV 93.1 fL 80.0-100.0 MCH 30.8 pg 27.0-33.0 MCHC 33.0 g/dL 32.0-37.5 PLT 443 H 150-400 MPV 10.0 fL 9.1-13.0 RDW 13.5 11.5-14.5 Jul 08, 2024 10:[address] [facility] URINALYSIS Specimen Type: URINE No comment entered. Ordering Provider: KATELYNN PERSON Report Released Date/Time: Jul 08, 2024 08:41 AM Reporting Lab: [facility] [address] Performing Lab: [facility] [address] URINE COLOR YELLOW SPECIFIC GRAVITY >1.050 H [...] NEGATIVE Jul 08, 2024 09:[address] [facility] CBC Specimen Type: BLOOD Comment: Specimen received in Lab at: 0952 Ordering Provider: JUANCARLOS ECHOLS Report Released Date/Time: Jul 07, 2024 04:49 PM Reporting Lab: [facility] [address] Performing Lab: [facility] [address] WBC 17.5 H 4.0-11.0 RBC 4.88 4.60-6.20 HGB 14.9 g/dL 13.5-17.9 HCT 45.7 41.0-54.0 MCV 93.6 fL 80.0-100.0 MCH 30.5 pg 27.0-33.0 MCHC 32.6 g/dL 32.0-37.5 PLT 472 H 150-400 MPV 10.2 fL 9.1-13.0 RDW 13.7 11.5-14.5 Jul 08, 2024 09:[address] [facility] PHOSPHORUS Specimen Type: PLASMA Comment: Specimen received in Lab at: 0952 Ordering Provider: JUANCARLOS ECHOLS Report Released Date/Time: Jul 07, 2024 04:49 PM Reporting Lab: [facility] [address] Performing Lab: [facility] [address] PHOSPHORUS 2.6 mg/dL 2.3-4.3 Jul 08, 2024 09:[address] [facility] BASIC METABOLIC PANEL+MG Specimen Type: PLASMA Comment: Specimen received in Lab at: 0952 Ordering Provider: JUANCARLOS ECHOLS Report Released Date/Time: Jul 07, 2024 04:49 PM Reporting Lab: [facility] [address] Performing Lab: [facility] [address] CREATININE 0.9 mg/dL 0.7-1.2 UREA NITROGEN 26 mg/dL 8-26 GLUCOSE 128 mg/dL H 70-100 SODIUM 134 mmol/L L 136-145 POTASSIUM 3.4 mmol/L L 3.5-5.1 CHLORIDE 100 mmol/L 98-107 CO2 24 mmol/L 22-29 CALCIUM 9.8 mg/dL 8.4-10.2 MAGNESIUM 1.8 mg/dL 1.6-2.6 ANION GAP 10 mmol/L 5-15 .CREAT EGFR(CKD-EPI) >90 >60 Jul 07, 2024 02:[address] [facility] C DIFF PANEL Specimen Type: FECES No comment entered. Ordering Provider: JEVON ZAZUETA Report Released Date/Time: Jul 07, 2024 12:26 PM Reporting Lab: [facility] [address] Performing Lab: [facility] [address] C DIFF TOX B GENE PCR NEGATIVE Negative Jul 07, 2024 07:[address] [facility] PHOSPHORUS Specimen Type: PLASMA No comment entered. Ordering Provider: JEVON ZAZUETA Report Released Date/Time: Jul 06, 2024 03:44 PM Reporting Lab: [facility] [address] Performing Lab: [facility] [address] PHOSPHORUS 3.1 mg/dL 2.3-4.3 Jul 07, 2024 07:[address] [facility] BASIC METABOLIC PANEL+MG Specimen Type: PLASMA No comment entered. Ordering Provider: JEVON ZAZUETA Report Released Date/Time: Jul 06, 2024 03:44 PM Reporting Lab: [facility] [address] Performing Lab: [facility] [address] CREATININE 0.9 mg/dL 0.7-1.2 UREA NITROGEN 20 mg/dL 8-26 GLUCOSE 157 mg/dL H 70-100 SODIUM 136 mmol/L 136-145 POTASSIUM 3.7 mmol/L 3.5-5.1 CHLORIDE 102 mmol/L 98-107 CO2 21 mmol/L L 22-29 CALCIUM 9.8 mg/dL 8.4-10.2 MAGNESIUM 1.9 mg/dL 1.6-2.6 ANION GAP 13 mmol/L 5-15 .CREAT EGFR(CKD-EPI) >90 >60 Jul 07, 2024 07:[address] [facility] CBC Specimen Type: BLOOD No comment entered. Ordering Provider: JEVON ZAZUETA Report Released Date/Time: Jul 06, 2024 03:44 PM Reporting Lab: [facility] [address] Performing Lab: [facility] [address] WBC 21.2 H 4.0-11.0 RBC 5.09 4.60-6.20 HGB 15.9 g/dL 13.5-17.9 HCT 48.3 41.0-54.0 MCV 94.9 fL 80.0-100.0 MCH 31.2 pg 27.0-33.0 MCHC 32.9 g/dL 32.0-37.5 PLT 500 H 150-400 MPV 10.3 fL 9.1-13.0 RDW 13.6 11.5-14.5 Jul 06, 2024 07:[address] [facility] CBC Specimen Type: BLOOD No comment entered. Ordering Provider: JEVON ZAZUETA Report Released Date/Time: Jul 05, 2024 01:22 PM Reporting Lab: [facility] [address] Performing Lab: [facility] [address] WBC 18.0 H 4.0-11.0 RBC 4.83 4.60-6.20 HGB 14.6 g/dL 13.5-17.9 HCT 45.5 41.0-54.0 MCV 94.2 fL 80.0-100.0 MCH 30.2 pg 27.0-33.0 MCHC 32.1 g/dL 32.0-37.5 PLT 368 150-400 MPV 10.4 fL 9.1-13.0 RDW 13.6 11.5-14.5 Jul 06, 2024 07:[address] [facility] PHOSPHORUS Specimen Type: PLASMA No comment entered. Ordering Provider: JEVON ZAZUETA Report Released Date/Time: Jul 05, 2024 01:22 PM Reporting Lab: [facility] [address] Performing Lab: [facility] [address] PHOSPHORUS 3.6 mg/dL 2.3-4.3 Jul 06, 2024 07:[address] [facility] BASIC METABOLIC PANEL+MG Specimen Type: PLASMA No comment entered. Ordering Provider: JEVON ZAZUETA Report Released Date/Time: Jul 05, 2024 01:22 PM Reporting Lab: [facility] [address] Performing Lab: [facility] [address] CREATININE 0.7 mg/dL 0.7-1.2 UREA NITROGEN 12 mg/dL 8-26 GLUCOSE 108 mg/dL H 70-100 SODIUM 138 mmol/L 136-145 POTASSIUM 3.4 mmol/L L 3.5-5.1 CHLORIDE 104 mmol/L 98-107 CO2 20 mmol/L L 22-29 CALCIUM 9.3 mg/dL 8.4-10.2 MAGNESIUM 1.9 mg/dL 1.6-2.6 ANION GAP 14 mmol/L 5-15 .CREAT EGFR(CKD-EPI) >90 >60 Jul 05, 2024 07:[address] [facility] MAGNESIUM Specimen Type: PLASMA No comment entered. Ordering Provider: JUANCARLOS ECHOLS Report Released Date/Time: Jul 04, 2024 09:39 AM Reporting Lab: [facility] [address] Performing Lab: [facility] [address] MAGNESIUM 2.0 mg/dL 1.6-2.6 Jul 05, 2024 07:[address] [facility] PHOSPHORUS Specimen Type: PLASMA No comment entered. Ordering Provider: JUANCARLOS ECHOLS S Report Released Date/Time: Jul 04, 2024 09:39 AM Reporting Lab: [facility] [address] Performing Lab: [facility] [address] PHOSPHORUS 2.0 mg/dL L 2.3-4.3 Jul 05, 2024 07:[address] [facility] BASIC METABOLIC PANEL+MG Specimen Type: PLASMA No comment entered. Ordering Provider: JUANCARLOS ECHOLS S Report Released Date/Time: Jul 04, 2024 09:39 AM Reporting Lab: [facility] [address] Performing Lab: [facility] [address] CREATININE 0.7 mg/dL 0.7-1.2 UREA NITROGEN 12 mg/dL 8-26 GLUCOSE 84 mg/dL 70-100 SODIUM 135 mmol/L L 136-145 POTASSIUM 3.8 mmol/L 3.5-5.1 CHLORIDE 104 mmol/L 98-107 CO2 24 mmol/L 22-29 CALCIUM 9.3 mg/dL 8.4-10.2 MAGNESIUM 2.0 mg/dL 1.6-2.6 ANION GAP 7 mmol/L 5-15 .CREAT EGFR(CKD-EPI) >90 >60 Jul 05, 2024 07:[address] [facility] CBC Specimen Type: BLOOD No comment entered. Ordering Provider: JUANCARLOS ECHOLS S Report Released Date/Time: Jul 04, 2024 09:39 AM Reporting Lab: [facility] [address] Performing Lab: [facility] [address] WBC 18.3 H 4.0-11.0 RBC 4.49 L 4.60-6.20 HGB 14.1 g/dL 13.5-17.9 HCT 43.4 41.0-54.0 MCV 96.7 fL 80.0-100.0 MCH 31.4 pg 27.0-33.0 MCHC 32.5 g/dL 32.0-37.5 PLT 317 150-400 MPV 10.0 fL 9.1-13.0 RDW 13.9 11.5-14.5 Jul 04, 2024 07:[address] [facility] BASIC METABOLIC PANEL+MG Specimen Type: PLASMA No comment entered. Ordering Provider: GABINO CAMERON Report Released Date/Time: Jul 03, 2024 06:31 PM Reporting Lab: [facility] [address] Performing Lab: [facility] [address] CREATININE 0.7 mg/dL 0.7-1.2 UREA NITROGEN 16 mg/dL 8-26 GLUCOSE 129 mg/dL H 70-100 SODIUM 137 mmol/L 136-145 POTASSIUM 3.7 mmol/L 3.5-5.1 CHLORIDE 107 mmol/L 98-107 CO2 22 mmol/L 22-29 CALCIUM 9.0 mg/dL 8.4-10.2 MAGNESIUM 1.9 mg/dL 1.6-2.6 ANION GAP 8 mmol/L 5-15 .CREAT EGFR(CKD-EPI) >90 >60 Jul 04, 2024 07:[address] [facility] PHOSPHORUS Specimen Type: PLASMA No comment entered. Ordering Provider: GABINO CAMERON Report Released Date/Time: Jul 03, 2024 06:31 PM Reporting Lab: [facility] [address] Performing Lab: [facility] [address] PHOSPHORUS 2.8 mg/dL 2.3-4.3 Jul 04, 2024 07:[address] [facility] CBC Specimen Type: BLOOD No comment entered. Ordering Provider: GABINO CAMERON Report Released Date/Time: Jul 03, 2024 06:31 PM Reporting Lab: [facility] [address] Performing Lab: [facility] [address] WBC 20.6 H 4.0-11.0 RBC 4.63 4.60-6.20 HGB 14.2 g/dL 13.5-17.9 HCT 43.4 41.0-54.0 MCV 93.7 fL 80.0-100.0 MCH 30.7 pg 27.0-33.0 MCHC 32.7 g/dL 32.0-37.5 PLT 329 150-400 MPV 10.4 fL 9.1-13.0 RDW 13.8 11.5-14.5 Jul 04, 2024 07:[address] [facility] CBC & DIFF Specimen Type: BLOOD Comment: Manual Differential Performed Ordering Provider: GABINO CAMERON Report Released Date/Time: Jul 03, 2024 06:31 PM Reporting Lab: [facility] [address] Performing Lab: [facility] [address] WBC 20.6 H 4.0-11.0 RBC 4.63 4.60-6.20 [...] PRESENT Jul 04, 2024 07:[address] [facility] BNP Specimen Type: PLASMA No comment entered. Ordering Provider: GABINO CAMERON Report Released Date/Time: Jul 03, 2024 06:31 PM Reporting Lab: [facility] [address] Performing Lab: [facility] [address] BNP 292 pg/mL H <99 Jul 03, 2024 10:[address] [facility] FINGERSTICK GLUCOSE Specimen Type: BLOOD Comment: Save Result Nurse Notified Ordering Provider: KATELYNN PERSON Report Released Date/Time: Jul 03, 2024 10:50 PM Reporting Lab: [facility] [address] Performing Lab: [facility] [address] FINGERSTICK GLUCOSE 126 mg/dL H 70-100 Jul 03, 2024 05:[address] [facility] FINGERSTICK GLUCOSE Specimen Type: BLOOD Comment: Save Result Nurse Notified Ordering Provider: KATELYNN PERSON Report Released Date/Time: Jul 03, 2024 05:46 PM Reporting Lab: [facility] [address] Performing Lab: [facility] [address] FINGERSTICK GLUCOSE 141 mg/dL H 70-100 Jul 03, 2024 02:[address] [facility] POC ABG/ELECTROLYTES Specimen Type: ARTERIAL BLOOD Comment: FIO2 = 97% Patient Temp: 36.0 C Sample Type = ARTERIAL Ordering Provider: MAZIN ARREDONDO Report Released Date/Time: Jul 03, 2024 01:48 PM Reporting Lab: [facility] [address] Performing Lab: [facility] [address] POC PH 7.387 7.35-7.45 POC PCO2 34.4 [...] 80.0-105.0 Jul 03, 2024 01:[address] [facility] POC ABG/ELECTROLYTES Specimen Type: ARTERIAL BLOOD Comment: FIO2 = 53% Patient Temp: 36.2 C Sample Type = ARTERIAL Ordering Provider: MAZIN ARREDONDO Report Released Date/Time: Jul 03, 2024 01:48 PM Reporting Lab: [facility] [address] Performing Lab: [facility] [address] POC PH 7.280 L 7.35-7.45 POC PCO2 [...] 80.0-105.0 Jul 03, 2024 06:[address] [facility] URINALYSIS Specimen Type: URINE No comment entered. Ordering Provider: MARYBETH POWELL Report Released Date/Time: Jun 12, 2024 04:01 PM Reporting Lab: [facility] [address] Performing Lab: [facility] [address] URINE COLOR YELLOW SPECIFIC GRAVITY 1.031 1.003-1.03 [...] NEGATIVE Jul 03, 2024 06:[address] [facility] CBC Specimen Type: BLOOD No comment entered. Ordering Provider: MARYBETH POWELL Report Released Date/Time: Jun 12, 2024 03:59 PM Reporting Lab: [facility] [address] Performing Lab: [facility] [address] WBC 15.8 H 4.0-11.0 RBC 5.11 4.60-6.20 HGB 16.1 g/dL 13.5-17.9 HCT 49.1 41.0-54.0 MCV 96.1 fL 80.0-100.0 MCH 31.5 pg 27.0-33.0 MCHC 32.8 g/dL 32.0-37.5 PLT 357 150-400 MPV 9.8 fL 9.1-13.0 RDW 13.7 11.5-14.5 Jun 24, 2024 09:[address] [facility] BASIC METABOLIC PANEL+MG Specimen Type: PLASMA Comment: Specimen received in Lab at: 0948 Ordering Provider: JEVON ZAZUETA Report Released Date/Time: Jun 23, 2024 06:07 PM Reporting Lab: [facility] [address] Performing Lab: [facility] [address] CREATININE 0.8 mg/dL 0.7-1.2 UREA NITROGEN 13 mg/dL 8-26 GLUCOSE 135 mg/dL H 70-100 SODIUM 135 mmol/L L 136-145 POTASSIUM 3.6 mmol/L 3.5-5.1 CHLORIDE 103 mmol/L 98-107 CO2 24 mmol/L 22-29 CALCIUM 9.2 mg/dL 8.4-10.2 MAGNESIUM 1.9 mg/dL 1.6-2.6 ANION GAP 8 mmol/L 5-15 .CREAT EGFR(CKD-EPI) >90 >60 Jun 24, 2024 09:[address] [facility] CBC Specimen Type: BLOOD Comment: Specimen received in Lab at: 0948 Ordering Provider: JEVON ZAZUETA Report Released Date/Time: Jun 23, 2024 06:07 PM Reporting Lab: [facility] [address] Performing Lab: [facility] [address] WBC 15.5 H 4.0-11.0 RBC 4.93 4.60-6.20 HGB 15.2 g/dL 13.5-17.9 HCT 46.5 41.0-54.0 MCV 94.3 fL 80.0-100.0 MCH 30.8 pg 27.0-33.0 MCHC 32.7 g/dL 32.0-37.5 PLT 223 150-400 MPV 11.4 fL 9.1-13.0 RDW 13.9 11.5-14.5 Jun 23, 2024 07:[address] [facility] COMPREHENSIVE METABOLIC PANEL+MG Specimen Type: PLASMA No comment entered. Ordering Provider: JEVON ZAZUETA Report Released Date/Time: Jun 22, 2024 05:51 PM Reporting Lab: [facility] [address] Performing Lab: [facility] [address] CREATININE 0.7 mg/dL 0.7-1.2 UREA NITROGEN 16 [...] >60 Jun 23, 2024 07:[address] [facility] CBC & DIFF Specimen Type: BLOOD Comment: Automated Differential Performed Ordering Provider: JEVON ZAZUETA Report Released Date/Time: Jun 22, 2024 05:51 PM Reporting Lab: [facility] [address] Performing Lab: [facility] [address] WBC 14.9 H 4.0-11.0 RBC 5.09 4.60-6.20 [...] 0.0-0.1 Jun 22, 2024 06:[address] [facility] COMPREHENSIVE METABOLIC PANEL+MG Specimen Type: PLASMA No comment entered. Ordering Provider: JEVON ZAZUETA Report Released Date/Time: Jun 22, 2024 05:51 PM Reporting Lab: [facility] [address] Performing Lab: [facility] [address] CREATININE 0.7 mg/dL 0.7-1.2 UREA NITROGEN 17 [...] >90 >60 Jun 22, 2024 06:[address] [facility] CBC Specimen Type: BLOOD No comment entered. Ordering Provider: JEVON ZAZUETA Report Released Date/Time: Jun 22, 2024 05:51 PM Reporting Lab: [facility] [address] Performing Lab: [facility] [address] WBC 16.9 H 4.0-11.0 RBC 5.28 4.60-6.20 HGB 16.9 g/dL 13.5-17.9 HCT 50.4 41.0-54.0 MCV 95.5 fL 80.0-100.0 MCH 32.0 pg 27.0-33.0 MCHC 33.5 g/dL 32.0-37.5 PLT 223 150-400 MPV 10.9 fL 9.1-13.0 RDW 14.0 11.5-14.5 Jun 21, 2024 06:[address] [facility] URINALYSIS Specimen Type: URINE No comment entered. Ordering Provider: DELIA MARTINEZ Report Released Date/Time: Jun 21, 2024 05:45 PM Reporting Lab: [facility] [address] Performing Lab: [facility] [address] URINE COLOR YELLOW SPECIFIC GRAVITY 1.041 H [...] NEGATIVE Jun 21, 2024 05:[address] [facility] POC CREATININE Specimen Type: BLOOD No comment entered. Ordering Provider: DELIA MARTINEZ Report Released Date/Time: Jun 21, 2024 06:07 PM Reporting Lab: [facility] [address] Performing Lab: [facility] [address] POC CREATININE 1.1 mg/dL 0.6-1.3 Jun 21, 2024 05:[address] [facility] POC ABG/LACTATE Specimen Type: VENOUS BLOOD No comment entered. Ordering Provider: DELIA MARTINEZ Report Released Date/Time: Jun 21, 2024 06:07 PM Reporting Lab: [facility] [address] Performing Lab: [facility] [address] POC PH 7.470 H 7.31-7.41 POC PCO2 31.2 mm[Hg] L 41.00-51 .0 0 POC PO2 46 mm[Hg] H 35.0-40.0 POC TCO2 24 mmol/L 24.0-29.0 POC HCO3 22.7 mmol/L L 23.0-28.0 POC BE ECT -1 mmol/L POC SO2 85 H 70-75 POC LACTATE 1.85 mmol/L 0.90-1.70 Jun 21, 2024 05:[address] [facility] PROTHROMBIN TIME/INR Specimen Type: PLASMA No comment entered. Ordering Provider: DELIA MARTINEZ Report Released Date/Time: Jun 21, 2024 05:30 PM Reporting Lab: [facility] [address] Performing Lab: [facility] [address] .INR 1.2 H 0.8-1.1 .PT 13.9 s H 9.4-12.5 Jun 21, 2024 05:[address] [facility] LIPASE Specimen Type: PLASMA No comment entered. Ordering Provider: DELIA MARTINEZ Report Released Date/Time: Jun 21, 2024 05:30 PM Reporting Lab: [facility] [address] Performing Lab: [facility] [address] LIPASE 32 U/L <60 Jun 21, 2024 05:[address] [facility] EXTRA GOLD GEL TUBE Specimen Type: SERUM No comment entered. Ordering Provider: DELIA MARTINEZ Report Released Date/Time: Jun 21, 2024 05:41 PM Reporting Lab: [facility] [address] Performing Lab: [facility] [address] EXTRA GOLD GEL TUBE RECEIVED Jun 21, 2024 05:[address] [facility] COMPREHENSIVE METABOLIC PANEL+MG Specimen Type: PLASMA No comment entered. Ordering Provider: DELIA MARTINEZ Report Released Date/Time: Jun 21, 2024 05:30 PM Reporting Lab: [facility] [address] Performing Lab: [facility] [address] CREATININE 0.9 mg/dL 0.7-1.2 UREA NITROGEN 29 [...] <0.5 Jun 21, 2024 05:[address] [facility] CBC & DIFF Specimen Type: BLOOD Comment: Manual Differential Performed Ordering Provider: DELIA MARTINEZ Report Released Date/Time: Jun 21, 2024 05:30 PM Reporting Lab: [facility] [id number] Performing Lab: [facility] [address] WBC 21.3 H 4.0-11.0 RBC 5.48 4.60-6.20 [...] PRESENT Jun 08, 2024 10:[address] [facility] PROTHROMBIN TIME/INR Specimen Type: PLASMA No comment entered. Ordering Provider: MARYBETH POWELL Report Released Date/Time: May 28, 2024 09:02 AM Reporting Lab: [facility] [address] Performing Lab: [facility] [address] .INR 1.0 0.8-1.1 .PT 11.8 s 9.4-12.5 Jun 08, 2024 10:[address] [facility] HEMOGLOBIN A1C Specimen Type: BLOOD [...] May 28, 2024 09:02 AM Reporting Lab: [facility] [address] Performing Lab: [facility] [address] HEMOGLOBIN A1C 4.9 4.0-6.0 Jun 08, 2024 10:[address] [facility] CBC Specimen Type: BLOOD No comment entered. Ordering Provider: MARYBETH POWELL Report Released Date/Time: May 28, 2024 09:02 AM Reporting Lab: [facility] [address] Performing Lab: [facility] [address] WBC 16.1 H 4.0-11.0 RBC 5.02 4.60-6.20 HGB 16.0 g/dL 13.5-17.9 HCT 47.1 41.0-54.0 MCV 93.8 fL 80.0-100.0 MCH 31.9 pg 27.0-33.0 MCHC 34.0 g/dL 32.0-37.5 PLT 228 150-400 MPV 10.3 fL 9.1-13.0 RDW 14.6 H 11.5-14.5 Jun 08, 2024 10:[address] [facility] BASIC METABOLIC PANEL+MG Specimen Type: PLASMA No comment entered. Ordering Provider: MARYBETH POWELL Report Released Date/Time: May 28, 2024 09:02 AM Reporting Lab: [facility] [address] Performing Lab: [facility] [address] CREATININE 0.9 mg/dL 0.7-1.2 UREA NITROGEN 15 [...] Source Jun 23, 2024 10:28 PM 3 [facility] Jun 23, 2024 09:28 PM 4 [facility] Jun 23, 2024 06:07 PM 6 [facility] Jun 23, 2024 05:21 PM 7 [facility] Jun 23, 2024 05:36 AM 6 [facility] Social History: Smoking [...] 2024 08:30 AM [facility] OR MORE [facility] May 06, 2023 11:30 AM [employer] FORMER US[facility] May 06, 2023 11:30 AM [...] 2 VIEWS PA AND LAT: FLACA WEAVER [id number] -1950 M Exm Date: JUL 08, 2024@10:09 Req Phys: KATELYNN PERSON Pat Loc: 2KG/07-08-2024@11:49 Img Loc: MAIN X-RAY Service: [place] [address] (Case 24 COMPLETE) CHEST 2 VIEWS PA AND LAT (RAD Detailed) CPT:71336 Reason for Study: Uptrending WBC, POD 5 Clinical History: [place] IS NOT under investigation for COVID-19 or is COVID-19 negative POD 5, work up for uptrending wbc Responsible provider name and phone number to notify for critical findings if other than user placing the order and pager listed below: User placing orders pager: Katelynn Person LAST CREATININE 0.9 (07/07/24) Report Status: Verified Date Reported: JUL 08, 2024 Date Verified: JUL 08, 2024 Program Architect E-Sig: Report: CHEST 2 VIEWS PA AND [...] cardiopulmonary disease. READING PHYSICIAN: Sarbjit Vaughn M.D. -[phone] 07/08/2024 12:46 EST [facility] National Teleradiology Program [phone] (For Medical Practitioner Use Only) Attention Patients / Veterans: If you have questions or concerns about these test results, please contact your ordering provider or primary care team. Primary Interpreting Staff: RADIOLOGY,OUTSIDE SERVICE, Staff Physician / RADIOLOGY,OUTSIDE SERVICE [facility] Jul 08, 2024 10:[address] (AP) ABDOMEN/PELVIS W CONTRAST: FLACA WEAVER [id number] -1950 M Exm Date: JUL 08, 2024@10:00 Req Phys: KATELYNN PERSON [facility] Loc: 2KG/07-08-2024@12:07 [facility] Loc: CT IMAGING Service: [place] [address] (Case [id number] COMPLETE) CT (AP) ABDOMEN/PELVIS W CONTRAST(CT Detailed) CPT:75912 Contrast Media : Non-ionic Iodinated Reason for [...] PLASMA .CREAT EGFR(CKD-E >90 Ref: >=60 Allergies: ([place] only) TERAZOSIN (Mar 13, 2015) Report Status: Verified Date Reported: JUL 08, 2024 Date Verified: JUL 08, 2024 Program Architect E-Sig: Report: CT (AP) ABDOMEN/PELVIS W CONTRAST HISTORY: POD 5, Uptrending WBC - Concern for Abscess/other infection COMPARISON: June 21, 2024 TECHNIQUE: CT abdomen and pelvis was performed after intravenous contrast. Axial, sagittal and coronal reformatted images. The study was performed at the local [place] facility and images were sent to the [place] [facility] (NTP) for interpretation. Number [...] as noted above READING PHYSICIAN: Celestino Blanc -[phone] 07/08/2024 13:04 [facility] [phone] (For Medical Practitioner Use Only) Attention Patients / Veterans: If you have questions or concerns about these test results, please contact your ordering provider or primary care team. Primary Interpreting Staff: RADIOLOGY,OUTSIDE SERVICE, Staff Physician / RADIOLOGY,OUTSIDE SERVICE [facility] Jun 22, 2024 11:49 AM ABSCESS DRAIN PLACEMENT PERITONEAL (P): FLACA WEAVER [id number] -1950 M Exm Date: JUN 22, 2024@11:49 Req Phys: ANGELA HOLDEN Loc: [facility]06-22-2024@17:14 Img Loc: INTERVENTIONAL RADIOLOGY Service: [place] [address] (Case [id number] COMPLETE) IR PERITONEAL/RETROPERITONEAL PER(ANI Detailed) CPT:42824 Reason for Study: diverticulitis with abscess (Case 3570 COMPLETE) IR MOD SEDATION 10-22 MIN (ANI Detailed) CPT:86506 Clinical History: [place] IS NOT under investigation for COVID-19 or is COVID-19 negative 73 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 please place abscess drain. Contact number for responsible provider who can be reached for any questions or notifications of critical findings: [phone] n/a LAST CREATININE 0.9 (06/21/24) Report Status: Verified Date Reported: JUN 22, 2024 Date Verified: JUN 22, 2024 Program Architect E-Sig:/ES/LISA PENDLETON MD Report: PROCEDURES: Placement of [...] anesthesia. Using real-time CT fluoroscopy, a 5 Australian [employer] catheter was advanced into the collection in the left pelvis. A wire was coiled in the collection. The tract into the collection was dilated to accommodate the 12 Australian locking pigtail drainage catheter. There was return [...] resection on 07/03/2024. Primary Interpreting Staff: LISA PENDLEOTN MD, RADIOLOGIST (Program Architect) /JRT LISA PENDLETON [facility] Jun 22, 2024 11:[address] NEEDLE PLACEMENT (P): FLACA WEAVER [id number] -1950 M Exm Date: JUN 22, 2024@11:48 Req Phys: ANGELA HOLDEN [facility] Loc: [facility]/06-22-2024@17:14 Img Loc: CT IMAGING Service: [place] [address] (Case [id number] COMPLETE) CT SCAN FOR NEEDLE PLACEMENT (CT Detailed) CPT:90075 Reason for Study: l pelvic abscess drain Clinical History: Report Status: Verified Date Reported: JUN 22, 2024 Date Verified: JUN 22, 2024 Program Architect E-Sig:/ES/LISA PENDLETON MD Report: PROCEDURES: Placement of [...] anesthesia. Using real-time CT fluoroscopy, a 5 Australian [employer] catheter was advanced into the collection in the left pelvis. A wire was coiled in the collection. The tract into the collection was dilated to accommodate the 12 Australian locking pigtail drainage catheter. There was return [...] Primary Interpreting Staff: LISA PENDLETON MD, RADIOLOGIST (Program Architect) /JRT LISA PENDLETON [facility] Jun 21, 2024 06:[address] (AP) ABDOMEN/PELVIS (P): FLACA WEAVER [id number] -1950 M Exm Date: JUN 21, 2024@18:09 Req Phys: DELIA MARTINEZ Loc: [facility] (Re Img Loc: CT IMAGING Service: [place] [address] (Case [id number] COMPLETE) CT (AP) ABDOMEN/PELVIS W CONTRAST(CT Detailed) CPT:96908 Contrast Media : Non-ionic Iodinated Reason for [...] PLASMA .CREAT EGFR(CKD-E >90 Ref: >=60 Allergies: ([place] only) TERAZOSIN (Mar 13, 2015) Defer to [...] 21, 2024 Date Verified: JUN 21, 2024 Program Architect E-Sig:/ES/CARLOS A CUNNINGHAM DO Report: EXAMINATION: CT [...] Interpreting Staff: CARLOS A CUNNINGHAM DO, RADIOLOGIST (Program Architect) /CARLOS A ROWELL [facility] May 25, 2024 09:00 AM IR FISTULOGRAM OR SINOGRAM : FLACA WEAVER [id number] -1950 M Exm Date: MAY 25, 2024@09:00 Req Phys: AMINTA PRUITT Loc: [facility] X[facility] INTERVENTIONAL RADIO Img Loc: INTERVENTIONAL RADIOLOGY Service: [place] [address] (Case [id number] COMPLETE) IR FISTULOGRAM OR SINOGRAM (ANI Detailed) CPT:90227 Contrast Media : unspecified contrast media Reason for Study: s/p drain placement for diverticular abscess- assess for drain Clinical History: [place] IS NOT under investigation for COVID-19 [...] 25, 2024 Date Verified: MAY 25, 2024 Program Architect E-Sig:/ES/DAVID BURNS MD Report: PROCEDURES 05/25/2024 9:48 [...] Primary Interpreting Staff: DAVID BURNS MD, RADIOLOGIST (Program Architect) /CSS DAVID BURNS [facility] May 25, 2024 08:[address] (AP) ABDOMEN/PELVIS (P): FLACA WEAVER [id number] -1950 M Exm Date: MAY 25, 2024@08:23 Req Phys: DAVID BURNS Pat Loc: [facility] XRAY INTERVENTIONAL RADIO Img Loc: CT IMAGING Service: [place] [address] (Case [id number] COMPLETE) CT (AP) ABDOMEN/PELVIS W/O CONTRA(CT Detailed) CPT:09239 Reason for Study: assess abscess and possible [...] PLASMA .CREAT EGFR(CKD-E >90 Ref: >=60 Allergies: ([place] only) TERAZOSIN (Mar 13, 2015) Report Status: Verified Date Reported: MAY 25, 2024 Date Verified: MAY 25, 2024 Program Architect E-Sig:/ES/JESSENIA GOODMAN MD Report: EXAM: CT abdomen and pelvis without intravenous contrast. 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 TECHNIQUE: Helical acquisition of image data was performed for the abdomen and pelvis without intravenous contrast. 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 Pathology Reports: [...] URGENCY: STATUS: COMPLETED $APHDR Reporting Lab: [facility] [CLIA# [id number]] [place] [address] - - - - - - - [...] - - - PATHOLOGY REPORT Accession No. [id number] - - - - - - - [...] - PATHOLOGY REPORT Accession No. [id number] - - - - - - - [...] Second circumferential surgical margin, en face; E-F: Hosiery Pairer diverticula; G: Hosiery Pairer section of mesentery; H: Random textile designs [...] One colonic tissue ring, bisected transversely. SS. (D)[facility] MICROSCOPIC DESCRIPTION: Microscopic examination performed. DIAGNOSIS: 1. Colon, sigmoid, sigmoidectomy-- - Diverticulosis with perforation and focal abscess formation 2. Colon, anastomotic rings, excision-- - Viable colonic mucosa without diagnostic abnormality /es/ EDUARDO PALOMARES MD STAFF PATHOLOGIST Signed Jul 06, 2024@10:40 Performing Laboratory: Surgical Pathology Report Performed By: [facility] [CLIA# [id number]] [place] [address] $FTR - - - - - - - - - - - - - - - - - - - - - - - - - - - - - - - - - - - - - - - - (End of report) EDUARDO PALOMARES MD [facility] Date Jul 06, 2024 - - - - - - - - - - - - - - - - - - - - - - - - - - - - - - - - - - - - - - - - FLACA WEAVER STANDARD FORM 515 ID:[id number] SEX:M :1950 AGE: 73 LOC:71686 ADM:Jun DX:DIVERTICULITIS PCP: Jatinder Cabrera /alexi/ EDUARDO PALOMARES MD STAFF PATHOLOGIST Signed: 07/06/2024 10:[address] [facility] Jun 22, 2024 01:15 PM LR MICROBIOLOGY RE PORT: Reporting Lab: [facility] [CLIA# [id number]] [place] [address] Accession [UID]: [id number] [[id number]] Received: Jun 22, 2024@13:38 Collection sample: FLUID Collection date: Jun 22, 2024 13:15 Provider: ANGELA HOLDEN Comment on specimen: LLQ ABSCESS, RECEIVED IN ANAEROBIC TRANSPORT VIAL Test(s) ordered: GRAM STAIN.................... completed: Jun 22, 2024 15:03 CULTURE & SUSCEPTIBILITY...... completed: Jun 25, 2024 * BACTERIOLOGY FINAL REPORT => Jun 25, 2024 10:56 TECH CODE: [id number] GRAM STAIN: DIRECT SMEAR of specimen before [...] By: [facility] [CLIA# [id number]] [place] [address] [facility] Jun 22, 2024 01:15 PM LR MICROBIOLOGY RE PORT: Reporting Lab: [facility] [CLIA# [id number]] [place] [address] Accession [UID]: [id number] [[id number]] Received: Jun 22, 2024@13:38 Collection sample: FLUID Collection date: Jun 22, 2024 13:15 Provider: ANGELA HOLDEN Comment on specimen: LLQ ABSCESS, RECEIVED IN ANAEROBIC TRANSPORT VIAL Test(s) ordered: ANAEROBIC CULTURE............. completed: Jun 28, 2024 * BACTERIOLOGY FINAL REPORT => Jun 28, 2024 10:08 TECH CODE: [id number] CULTURE RESULTS: HEAVY GROWTH MIXED ANAEROBES Comment: [...] By: [facility] [CLIA# [id number]] [place] [address] [facility] Jun 21, 2024 06:12 PM LR MICROBIOLOGY RE PORT: Reporting Lab: [facility] [CLIA# [id number]] [place] [address] Accession [UID]: [id number] [[id number]] Received: Jun 21, 2024@18:12 Collection sample: BLOOD [...] By: [facility] [CLIA# [id number]] [place] [address] [facility] Jun 21, 2024 06:11 PM LR MICROBIOLOGY RE PORT: Reporting Lab: [facility] [CLIA# [id number]] [place] [address] Accession [UID]: [id number] [[id number]] Received: Jun 21, 2024@18:11 Collection sample: BLOOD [...] By: [facility] [CLIA# [id number]] [place] [address] [facility] Jun 08, 2024 11:00 AM LR MICROBIOLOGY RE PORT: Reporting Lab: [facility] [CLIA# [id number]] [place] [address] Accession [UID]: [id number] [[id number]] Received: Jun 08, 2024@11:00 Collection sample: URINE Collection date: Jun 08, 2024 11:00 Provider: MARYBETH POWELL Comment on specimen: urine Test(s) ordered: CULTURE & SUSCEPTIBILITY...... completed: Jun 09, 2024 * BACTERIOLOGY FINAL REPORT => Jun 09, 2024 19:12 TECH CODE: [id number] CULTURE RESULTS: ESCHERICHIA COLI - Quantity: >100,000 [...] By: [facility] [CLIA# [id number]] [place] [address] [facility] Encounter Notes: All associated encounter notes This section contains the clinical notes associated to the Encounter. Date/Time Encounter Note(s) Provider Source Jun 23, 2024 01:00 AM CRITICAL CARE UNIT NOTE: LOCAL TITLE: [facility] RESPIRATORY THERAPY FLOWSHEET STANDARD TITLE: CRITICAL CARE UNIT NOTE DATE OF NOTE: JUN 23, 2024@01:00 ENTRY DATE: JUN 24, 2024@15:07:35 AUTHOR: PETERSONPixelFish EXP COSIGNER: URGENCY: STATUS: COMPLETED This is a place aranda only. Please see [employer] to view document. /es/ [employer] SYSTEM ICU DOCUMENT IMPORT Signed: 06/24/2024 15:[address] [facility] Jun 23, 2024 01:00 AM CRITICAL CARE UNIT NOTE: LOCAL TITLE: [facility] INPATIENT FLOWSHEET STANDARD TITLE: CRITICAL CARE UNIT NOTE DATE OF NOTE: JUN 23, 2024@01:00 ENTRY DATE: JUN 24, 2024@14:38:15 AUTHOR: PETERSONPixelFish EXP COSIGNER: URGENCY: STATUS: COMPLETED This is a place aranda only. Please see [facility] [employer] to view document. /es/ [employer] SYSTEM ICU DOCUMENT IMPORT Signed: 06/24/2024 14:38 SYSTEM,[facility]
--- OUTSIDE RECORDS SUMMARY | 2024-07-16 07:34 | XMS_ITS ---
[place] DAILY HOSPITALIZATION DATA [facility] Encounter Summary Created on: July 16, 2024 MEG FLACADARCI LOBO : 1950 Sex: Male Author Name [facility] [place] [facility] [place] [facility] [place] Address [address] [place] [address] Care Team Providers Care Mail Examiner Name Role Phone JATINDER CABRERA Primary Care [...] PART A Sep 29, 2016 PART A [phone] JUDY WEAVER PATIENT Selected Encounter This section includes the information on record at [place] for the Encounter. Date/Time Encounter Type Encounter Description Reason Pro vider Source Jun 24, 2024 09:35 AM Inpatient Visit DAILY HOSPITALIZATION DATA KATELYNN [...] 27, 2024 07:00 AM [facility] Jun 27, 2024 07:30 AM AM[facility] MED[facility]INE [facility] Jun 27, 2024 08:00 AM AMBULATORY - MEDICINE [facility] Jul 03, 2024 05:55 AM AMBULATORY - NONE [facility] Jul 13, 2024 08:15 AM AMBULATORY - NONE [facility] Active, Pending, and Scheduled Orders This section includes a listing of several types of active, pending, and scheduled orders, including clinic medications orders, diagnostic test orders, procedure orders and consult orders; where the start date of the order is 45 days before the date of the Encounter or 45 days after the date of theEncounter. The data comes from all [facility] facilities. Test Date/Time Test Type Test Details [...] Order TYPE & SCREEN - LAB BLOOD [facility] Jul 03, 2024 12:00 AM Laboratory - Blood Bank Order TYPE & SCREEN - LAB BLOOD [facility] Jul 16, 2024 12:00 AM Laboratory [...] Jul 09, 2024 12:23 PM Reporting Lab: [facility] [address] Performing Lab: [facility] [address] PHOSPHORUS 3.0 mg/dL 2.3-4.3 Jul 10, 2024 07:16 AM [facility] BASIC METABOLIC PANEL+MG Specimen Type: PLASMA No comment entered. Ordering Provider: JUANCARLOS ECHOLS Report Released Date/Time: Jul 09, 2024 12:23 PM Reporting Lab: [facility] [address] Performing Lab: [facility] [address] CREATININE 0.7 mg/dL 0.7-1.2 UREA NITROGEN 27 [...] Jul 09, 2024 12:23 PM Reporting Lab: [facility] [address] Performing Lab: [facility] [address] WBC 18.8 H 4.0-11.0 RBC 5.08 4.60-6.20 [...] Jul 08, 2024 06:18 PM Reporting Lab: [facility] [address] Performing Lab: [facility] [address] WBC 15.3 H 4.0-11.0 RBC 4.91 4.60-6.20 [...] Jul 08, 2024 08:41 AM Reporting Lab: [facility] [address] Performing Lab: [facility] [address] URINE COLOR YELLOW SPECIFIC GRAVITY >1.050 H [...] Jul 07, 2024 04:49 PM Reporting Lab: [facility] [address] Performing Lab: [facility] [address] WBC 17.5 H 4.0-11.0 RBC 4.88 4.60-6.20 [...] Jul 07, 2024 04:49 PM Reporting Lab: [facility] [address] Performing Lab: [facility] [address] PHOSPHORUS 2.6 mg/dL 2.3-4.3 Jul 08, 2024 09:54 AM [facility] BASIC METABOLIC PANEL+MG Specimen Type: PLASMA Comment: Specimen received in Lab at: 0952 Ordering Provider: JUANCARLOS ECHOLS Report Released Date/Time: Jul 07, 2024 04:49 PM Reporting Lab: [facility] [address] Performing Lab: [facility] [address] CREATININE 0.9 mg/dL 0.7-1.2 UREA NITROGEN 26 [...] Jul 07, 2024 12:26 PM Reporting Lab: [facility] [address] Performing Lab: [facility] [address] C DIFF TOX B GENE PCR NEGATIVE Negative Jul 07, 2024 07:41 AM [facility] PHOSPHORUS Specimen Type: PLASMA No comment entered. Ordering Provider: JEVON ZAZUETA Report Released Date/Time: Jul 06, 2024 03:44 PM Reporting Lab: [facility] [address] Performing Lab: [facility] [address] PHOSPHORUS 3.1 mg/dL 2.3-4.3 Jul 07, 2024 07:41 AM [facility] BASIC METABOLIC PANEL+MG Specimen Type: PLASMA No comment entered. Ordering Provider: JEVON ZAZUETA Report Released Date/Time: Jul 06, 2024 03:44 PM Reporting Lab: [facility] [address] Performing Lab: [facility] [address] CREATININE 0.9 mg/dL 0.7-1.2 UREA NITROGEN 20 [...] Jul 06, 2024 03:44 PM Reporting Lab: [facility] [address] Performing Lab: [facility] [address] WBC 21.2 H 4.0-11.0 RBC 5.09 4.60-6.20 [...] Jul 05, 2024 01:22 PM Reporting Lab: [facility] [address] Performing Lab: [facility] [address] WBC 18.0 H 4.0-11.0 RBC 4.83 4.60-6.20 [...] Jul 05, 2024 01:22 PM Reporting Lab: [facility] [address] Performing Lab: [facility] [address] PHOSPHORUS 3.6 mg/dL 2.3-4.3 Jul 06, 2024 07:21 AM [facility] BASIC METABOLIC PANEL+MG Specimen Type: PLASMA No comment entered. Ordering Provider: JEVON ZAZUETA Report Released Date/Time: Jul 05, 2024 01:22 PM Reporting Lab: [facility] [address] Performing Lab: [facility] [address] CREATININE 0.7 mg/dL 0.7-1.2 UREA NITROGEN 12 [...] Jul 04, 2024 09:39 AM Reporting Lab: [facility] [address] Performing Lab: [facility] [address] MAGNESIUM 2.0 mg/dL 1.6-2.6 Jul 05, 2024 07:17 AM [facility] PHOSPHORUS Specimen Type: PLASMA No comment entered. Ordering Provider: JUANCARLOS ECHOLS S Report Released Date/Time: Jul 04, 2024 09:39 AM Reporting Lab: [facility] [address] Performing Lab: [facility] [address] PHOSPHORUS 2.0 mg/dL L 2.3-4.3 Jul 05, 2024 07:17 AM [facility] BASIC METABOLIC PANEL+MG Specimen Type: PLASMA No comment entered. Ordering Provider: JUANCARLOS ECHOLS S Report Released Date/Time: Jul 04, 2024 09:39 AM Reporting Lab: [facility] [address] Performing Lab: [facility] [address] CREATININE 0.7 mg/dL 0.7-1.2 UREA NITROGEN 12 [...] Jul 04, 2024 09:39 AM Reporting Lab: [facility] [address] Performing Lab: [facility] [address] WBC 18.3 H 4.0-11.0 RBC 4.49 L [...] 06:31 PM Reporting Lab: [facility] [address] Performing Lab: [facility] [address] CREATININE 0.7 mg/dL 0.7-1.2 UREA NITROGEN 16 [...] 06:31 PM Reporting Lab: [facility] [address] Performing Lab: [facility] [address] PHOSPHORUS 2.8 mg/dL 2.3-4.3 Jul 04, 2024 07:16 AM [facility] CBC Specimen Type: BLOOD No comment entered. Ordering Provider: GABINO CAMERON Report Released Date/Time: Jul 03, 2024 06:31 PM Reporting Lab: [facility] [address] Performing Lab: [facility] [address] WBC 20.6 H 4.0-11.0 RBC 4.63 4.60-6.20 [...] 06:31 PM Reporting Lab: [facility] [address] Performing Lab: [facility] [address] WBC 20.6 H 4.0-11.0 RBC 4.63 4.60-6.20 [...] 06:31 PM Reporting Lab: [facility] [address] Performing Lab: [facility] [address] BNP 292 pg/mL H <99 Jul 03, 2024 10:32 PM [facility] FINGERSTICK GLUCOSE Specimen Type: BLOOD Comment: Save Result Nurse Notified Ordering Provider: KATELYNN PERSON Report Released Date/Time: Jul 03, 2024 10:50 PM Reporting Lab: [facility] [address] Performing Lab: [facility] [address] FINGERSTICK GLUCOSE 126 mg/dL H 70-100 Jul 03, 2024 05:33 PM [facility] FINGERSTICK GLUCOSE Specimen Type: BLOOD Comment: Save Result Nurse Notified Ordering Provider: KATELYNN PERSON Report Released Date/Time: Jul 03, 2024 05:46 PM Reporting Lab: [facility] [address] Performing Lab: [facility] [address] FINGERSTICK GLUCOSE 141 mg/dL H 70-100 Jul 03, 2024 02:31 PM [facility] POC ABG/ELECTROLYTES Specimen Type: ARTERIAL BLOOD Comment: FIO2 = 97% Patient Temp: 36.0 C Sample Type = ARTERIAL Ordering Provider: MAZIN ARREDONDO Report Released Date/Time: Jul 03, 2024 01:48 PM Reporting Lab: [facility] [address] Performing Lab: [facility] [address] POC PH 7.387 7.35-7.45 POC PCO2 34.4 [...] 01:48 PM Reporting Lab: [facility] [address] Performing Lab: [facility] [address] POC PH 7.280 L 7.35-7.45 POC PCO2 [...] 04:01 PM Reporting Lab: [facility] [address] Performing Lab: [facility] [address] URINE COLOR YELLOW SPECIFIC GRAVITY 1.031 1.003-1.03 [...] 03:59 PM Reporting Lab: [facility] [address] Performing Lab: [facility] [address] WBC 15.8 H 4.0-11.0 RBC 5.11 4.60-6.20 [...] 06:07 PM Reporting Lab: [facility] [address] Performing Lab: [facility] [address] CREATININE 0.8 mg/dL 0.7-1.2 UREA NITROGEN 13 [...] 06:07 PM Reporting Lab: [facility] [address] Performing Lab: [facility] [address] WBC 15.5 H 4.0-11.0 RBC 4.93 4.60-6.20 HGB 15.2 g/dL 13.5-17.9 HCT 46.5 41.0-54.0 MCV 94.3 fL 80.0-100.0 MCH 30.8 pg 27.0-33.0 MCHC 32.7 g/dL 32.0-37.5 PLT 223 150-400 MPV 11.4 fL 9.1-13.0 RDW 13.9 11.5-14.5 Jun 23, 2024 07:52 AM [facility] COMPREHENSIVE METABOLIC PANEL+MG Specimen Type: PLASMA No comment entered. Ordering Provider: JVEON ZAZUETA Report Released Date/Time: Jun 22, 2024 05:51 PM Reporting Lab: [facility] [address] Performing Lab: [facility] [address] CREATININE 0.7 mg/dL 0.7-1.2 UREA NITROGEN 16 [...] 05:51 PM Reporting Lab: [facility] [address] Performing Lab: [facility] [address] WBC 14.9 H 4.0-11.0 RBC 5.09 4.60-6.20 [...] 05:51 PM Reporting Lab: [facility] [address] Performing Lab: [facility] [address] CREATININE 0.7 mg/dL 0.7-1.2 UREA NITROGEN 17 [...] >90 >60 Jun 22, 2024 06:10 PM [facility] CBC Specimen Type: BLOOD No comment entered. Ordering Provider: JEVON ZAZUETA Report Released Date/Time: Jun 22, 2024 05:51 PM Reporting Lab: [facility] [address] Performing Lab: [facility] [address] WBC 16.9 H 4.0-11.0 RBC 5.28 4.60-6.20 HGB 16.9 g/dL 13.5-17.9 HCT 50.4 41.0-54.0 MCV 95.5 fL 80.0-100.0 MCH 32.0 pg 27.0-33.0 MCHC 33.5 g/dL 32.0-37.5 PLT 223 150-400 MPV 10.9 fL 9.1-13.0 RDW 14.0 11.5-14.5 Jun 21, 2024 06:48 PM [facility] URINALYSIS Specimen Type: URINE No comment entered. Ordering Provider: DELIA MARTINEZ Report Released Date/Time: Jun 21, 2024 05:45 PM Reporting Lab: [facility] [address] Performing Lab: [facility] [address] URINE COLOR YELLOW SPECIFIC GRAVITY 1.041 H [...] 06:07 PM Reporting Lab: [facility] [address] Performing Lab: [facility] [address] POC CREATININE 1.1 mg/dL 0.6-1.3 Jun 21, 2024 05:30 PM [facility] POC ABG/LACTATE Specimen Type: VENOUS BLOOD No comment entered. Ordering Provider: DELIA MARTINEZ Report Released Date/Time: Jun 21, 2024 06:07 PM Reporting Lab: [facility] [address] Performing Lab: [facility] [address] POC PH 7.470 H 7.31-7.41 POC PCO2 [...] 05:30 PM Reporting Lab: [facility] [address] Performing Lab: [facility] [address] .INR 1.2 H 0.8-1.1 .PT 13.9 s H 9.4-12.5 Jun 21, 2024 05:24 PM [facility] LIPASE Specimen Type: PLASMA No comment entered. Ordering Provider: DELIA MARTINEZ Report Released Date/Time: Jun 21, 2024 05:30 PM Reporting Lab: [facility] [address] Performing Lab: [facility] [address] LIPASE 32 U/L <60 Jun 21, 2024 05:24 PM [facility] EXTRA GOLD GEL TUBE Specimen Type: SERUM No comment entered. Ordering Provider: DELIA MARTINEZ Report Released Date/Time: Jun 21, 2024 05:41 PM Reporting Lab: [facility] [address] Performing Lab: [facility] [address] EXTRA GOLD GEL TUBE RECEIVED Jun 21, 2024 05:24 PM [facility] COMPREHENSIVE METABOLIC PANEL+MG Specimen Type: PLASMA No comment entered. Ordering Provider: DELIA MARTINEZ Report Released Date/Time: Jun 21, 2024 05:30 PM Reporting Lab: [facility] [address] Performing Lab: [facility] [address] CREATININE 0.9 mg/dL 0.7-1.2 UREA NITROGEN 29 [...] 05:30 PM Reporting Lab: [facility] [address] Performing Lab: [facility] [address] WBC 21.3 H 4.0-11.0 RBC 5.48 4.60-6.20 [...] 09:02 AM Reporting Lab: [facility] [address] Performing Lab: [facility] [address] .INR 1.0 0.8-1.1 .PT 11.8 s 9.4-12.5 [...] 09:02 AM Reporting Lab: [facility] [address] Performing Lab: [facility] [address] HEMOGLOBIN A1C 4.9 4.0-6.0 Jun 08, 2024 10:59 AM [facility] CBC Specimen Type: BLOOD No comment entered. Ordering Provider: MARYBETH POWELL Report Released Date/Time: May 28, 2024 09:02 AM Reporting Lab: [facility] [address] Performing Lab: [facility] [address] WBC 16.1 H 4.0-11.0 RBC 5.02 4.60-6.20 [...] 09:02 AM Reporting Lab: [facility] [address] Performing Lab: [facility] [address] CREATININE 0.9 mg/dL 0.7-1.2 UREA NITROGEN 15 [...] QUIT 15 YRS OR MORE [facility] Tobacco Use History This section [...] [facility] Mar 20, 2019 04:03 PM [place]-TOBACCO QUIT 5 TO < 15 YRS [facility] [...] 2016 CLINICAL WARNING TIM TERAN [facility] Radiology Reports: +/- 30 [...] 2 VIEWS PA AND LAT: MEGFLACA YAMIL [id number] -1950 M Exm Date: JUL 08, 2024@10:09 Req Phys: KATELYNN PERSON Loc: 2KG07-08-2024@11:49 Img Loc: MAIN X-RAY Service: [place] [address] (Case 24 COMPLETE) CHEST 2 VIEWS PA AND LAT (RAD Detailed) CPT:73543 Reason for Study: Uptrending WBC, POD 5 Clinical History: [place] IS NOT under investigation for COVID-19 or is COVID-19 negative POD 5, work up for uptrending wbc Responsible provider name and phone number to notify for critical findings if other than user placing the order and pager listed below: User placing orders pager: Katelynn Person LAST CREATININE 0.9 (07/07/24) Report Status: Verified Date Reported: JUL 08, 2024 Date Verified: JUL 08, 2024 Commercial Relief Driver E-Sig: Report: CHEST 2 VIEWS PA AND [...] cardiopulmonary disease. READING PHYSICIAN: Sarbjit Vaughn M.D. -[phone] 07/08/2024 12:46 EST [facility] National Teleradiology Program [phone] (For Medical Practitioner Use Only) Attention Patients / Veterans: If you have questions or concerns about these test results, please contact your ordering provider or primary care team. Primary Interpreting Staff: RADIOLOGY,OUTSIDE SERVICE, Staff Physician / RADIOLOGY,OUTSIDE SERVICE [facility] Jul 08, 2024 10:[address] (AP) ABDOMEN/PELVIS W CONTRAST: FLACA WEAVER [id number] -1950 Ex Date: JUL 08, 2024@10:00 Req Phys: KATELYNN PERSON Pat Loc: 2KG/07-08-2024@12:07 Img Loc: CT IMAGING Service: [place] [address] (Case 22 COMPLETE) CT (AP) ABDOMEN/PELVIS W CONTRAST(CT Detailed) CPT:85767 Contrast Media : Non-ionic Iodinated Reason for [...] PLASMA .CREAT EGFR(CKD-E >90 Ref: >=60 Allergies: ([place] only) TERAZOSIN (Mar 13, 2015) Report Status: Verified Date Reported: JUL 08, 2024 Date Verified: JUL 08, 2024 Commercial Relief Driver E-Sig: Report: CT (AP) ABDOMEN/PELVIS W CONTRAST [...] as noted above READING PHYSICIAN: Celestino Blanc -[phone] 07/08/2024 13:04 [facility] Intentradiology Program [phone] (For Medical Practitioner Use Only) Attention Patients / Veterans: If you have questions or concerns about these test results, please contact your ordering provider or primary care team. Primary Interpreting Staff: RADIOLOGY,OUTSIDE SERVICE, Staff Physician / RADIOLOGY,OUTSIDE SERVICE [facility] Jun 22, 2024 11:49 AM ABSCESS DRAIN PLACEMENT PERITONEAL (P): FLACA WEAVER [id number] -1950 M Exm Date: JUN 22, 2024@11:49 Req Phys: ANGELA HOLDEN [facility] Loc: [facility]06-22-2024@17:14 Img Loc: INTERVENTIONAL RADIOLOGY Service: [place] [address] (Case [id number] COMPLETE) IR PERITONEAL/RETROPERITONEAL PER(ANI Detailed) CPT:24662 Reason for Study: diverticulitis with abscess (Case [id number] COMPLETE) IR MOD SEDATION 10-22 MIN (ANI Detailed) CPT:49955 Clinical History: [place] IS NOT under investigation for COVID-19 or is COVID-19 negative 73 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 please place abscess drain. Contact number for responsible provider who can be reached for any questions or notifications of critical findings: [phone] n/a LAST CREATININE 0.9 (06/21/24) Report Status: Verified Date Reported: JUN 22, 2024 Date Verified: JUN 22, 2024 Commercial Relief Driver E-Sig:/ES/LISA PENDLETON MD Report: PROCEDURES: Placement [...] anesthesia. Using real-time CT fluoroscopy, a 5 Thai Clever Goats Mediaesis catheter was advanced into the collection in the left pelvis. A wire was coiled in the collection. The tract into the collection was dilated to accommodate the 12 Thai locking pigtail drainage catheter. There was return [...] Primary Interpreting Staff: LISA PENDLETON MD, RADIOLOGIST (Commercial Relief Driver) /JRT LISA PENDLETON [facility] Jun 22, 2024 11:[address] NEEDLE PLACEMENT (P): FLACA WEAVER [id number] -1950 M Exm Date: JUN 22, 2024@11:48 Req Phys: ANGELA HOLDEN Loc: [facility]06-22-2024@17:14 Img Loc: CT IMAGING Service: [place] [address] (Case [id number] COMPLETE) CT SCAN FOR NEEDLE PLACEMENT (CT Detailed) CPT:14192 Reason for Study: l pelvic abscess drain Clinical History: Report Status: Verified Date Reported: JUN 22, 2024 Date Verified: JUN 22, 2024 Commercial Relief Driver E-Sig:/ES/LISA PENDLETON MD Report: PROCEDURES: Placement [...] anesthesia. Using real-time CT fluoroscopy, a 5 Thai Clever Goats Mediaesis catheter was advanced into the collection in the left pelvis. A wire was coiled in the collection. The tract into the collection was dilated to accommodate the 12 Thai locking pigtail drainage catheter. There was return [...] Primary Interpreting Staff: LISA PENDLETON MD, RADIOLOGIST (Commercial Relief Driver) /JRT LISA PENDLETON [facility] Jun 21, 2024 06:[address] (AP) ABDOMEN/PELVIS (P): FLACA WEAVER [id number] -1950 M Exm Date: JUN 21, 2024@18:09 Req Phys: DELIA MARTINEZ Loc: [facility] EMERGENCY DEPT WALK-IN (Re Img Loc: CT IMAGING Service: [place] [address] (Case [id number] COMPLETE) CT (AP) ABDOMEN/PELVIS W CONTRAST(CT Detailed) CPT:36113 Contrast Media : Non-ionic Iodinated Reason for [...] PLASMA .CREAT EGFR(CKD-E >90 Ref: >=60 Allergies: ([place] only) TERAZOSIN (Mar 13, 2015) Defer to [...] 21, 2024 Date Verified: JUN 21, 2024 Commercial Relief Driver E-Sig:/ALEXI/CARLOS A CUNNINGHAM DO Report: EXAMINATION: [...] Interpreting Staff: CARLOS A CUNNINGHAM DO, RADIOLOGIST (Commercial Relief Driver) /CARLOS A ROWELL [facility] May 25, 2024 09:00 AM IR FISTULOGRAM OR SINOGRAM : FLACA WEAVER [id number] -1950 M Ex Date: MAY 25, 2024@09:00 Req Phys: AMINTA PRUITT Loc: [facility] X[facility] INTERVENTIONAL RADIO Img Loc: INTERVENTIONAL RADIOLOGY Service: [place] [address] (Case [id number] COMPLETE) IR FISTULOGRAM OR SINOGRAM (ANI Detailed) CPT:44752 Contrast Media : unspecified contrast media Reason for Study: s/p drain placement for diverticular abscess- assess for drain Clinical History: [place] IS NOT under investigation for COVID-19 or [...] 25, 2024 Date Verified: MAY 25, 2024 Commercial Relief Driver E-Sig:/ES/DAVID BURNS MD Report: PROCEDURES 05/25/2024 [...] Primary Interpreting Staff: DAVID BURNS MD, RADIOLOGIST (Commercial Relief Driver) /CSS DAVID BURNS [facility] May 25, 2024 08:[address] (AP) ABDOMEN/PELVIS (P): FLACA WEAVER [id number] -1950 M Exm Date: MAY 25, 2024@08:23 Req Phys: DAVID BURNS Pat Loc: [facility] XRAY INTERVENTIONAL RADIO Img Loc: CT IMAGING Service: [place] [address] (Case [id number] COMPLETE) CT (AP) ABDOMEN/PELVIS W/O CONTRA(CT Detailed) CPT:34711 Reason for Study: assess abscess and possible [...] PLASMA .CREAT EGFR(CKD-E >90 Ref: >=60 Allergies: ([place] only) TERAZOSIN (Mar 13, 2015) Report Status: Verified Date Reported: MAY 25, 2024 Date Verified: MAY 25, 2024 Commercial Relief Driver E-Sig:/ES/JESSENIA GOODMAN MD Report: EXAM: CT [...] pelvis 04/23/2024.; CT abdomen pelvis 05/05/2020 FINDINGS: PRODUCT DEVELOPMENT DIRECTOR: Pigtail catheter projecting over the left hemipelvis [...] Primary Interpreting Staff: JESSENIA GOODMAN MD, RADIOLOGIST (Commercial Relief Driver) Primary Interpreting Resident: YOHANNES MELO DO, DEPARTMENTAL SHIPPING CLERK /JESSENIA LOUIE [facility] Pathology Reports: +/- [...] COMPLETED $APHDR Reporting Lab: [facility] [CLIA# [id number]] [place] [address] - - - - - - - [...] - PATHOLOGY REPORT Accession No. [id number] - - - - - - - [...] - PATHOLOGY REPORT Accession No. [id number] - - - - - - - [...] Second circumferential surgical margin, en face; E-F: Human Resources Benefits Assistant diverticula; G: Human Resources Benefits Assistant section of mesentery; H: Random manufacturing sales representative section of additional adipose tissue [...] One colonic tissue ring, bisected transversely. SS. (D)[facility] [place] MICROSCOPIC DESCRIPTION: Microscopic examination performed. DIAGNOSIS: 1. Colon, sigmoid, sigmoidectomy-- - Diverticulosis with perforation and focal abscess formation 2. Colon, anastomotic rings, excision-- - Viable colonic mucosa without diagnostic abnormality /alexi/ EDUARDO PALOMARES MD STAFF PATHOLOGIST Signed Jul 06, 2024@10:40 Performing Laboratory: Surgical Pathology Report Performed By: [facility] [CLIA# [id number]] [place] [address] $FTR - - - - - - - - - - - - - - - - - - - - - - - - - - - - - - - - - - - - - - - - (End of report) EDUARDO PALOMARES MD [facility] Date Jul 06, 2024 - - - - - - - - - - - - - - - - - - - - - - - - - - - - - - - - - - - - - - - - FLACA WEAVER STANDARD FORM 515 ID:[id number] SEX:M :1950 AGE: 73 LOC:[id number] ADM:Jun DX:DIVERTICULITIS PCP: Jatinder Cabrera /alexi/ EDUARDO PALOMARES MD STAFF PATHOLOGIST Signed: 07/06/2024 10:40 EDUARDO PALOMRAES [facility] Jun 22, 2024 01:15 PM LR MICROBIOLOGY RE PORT: Reporting Lab: [facility] [CLIA# [id number]] [place] [address] Accession [UID]: [id number] [[id number]] Received: Jun 22, 2024@13:38 Collection sample: FLUID Collection date: Jun 22, 2024 13:15 Provider: ANGELA HOLDEN Comment on specimen: LLQ ABSCESS, RECEIVED IN ANAEROBIC TRANSPORT VIAL Test(s) ordered: GRAM STAIN.................... completed: Jun 22, 2024 15:03 CULTURE & SUSCEPTIBILITY...... completed: Jun 25, 2024 * BACTERIOLOGY FINAL REPORT => Jun 25, 2024 10:56 TECH CODE: [id number] GRAM STAIN: DIRECT SMEAR of specimen before [...] Bacteriology Report Performed By: [facility] [CLIA# [id number]] [place] [address] [facility] Jun 22, 2024 01:15 PM LR MICROBIOLOGY RE PORT: Reporting Lab: [facility] [CLIA# [id number]] [place] [address] Accession [UID]: [id number] [[id number]] Received: Jun 22, 2024@13:38 Collection sample: FLUID Collection date: Jun 22, 2024 13:15 Provider: ANGELA HOLDEN Comment on specimen: LLQ ABSCESS, RECEIVED IN ANAEROBIC TRANSPORT VIAL Test(s) ordered: ANAEROBIC CULTURE............. completed: Jun 28, 2024 * BACTERIOLOGY FINAL REPORT => Jun 28, 2024 10:08 TECH CODE: 61952 CULTURE RESULTS: HEAVY GROWTH MIXED ANAEROBES Comment: [...] Bacteriology Report Performed By: [facility] [CLIA# [id number]] [place] [address] [facility] Jun 21, 2024 06:12 PM LR MICROBIOLOGY RE PORT: Reporting Lab: [facility] [CLIA# [id number]] [place] [address] Accession [UID]: [id number]] Received: Jun 21, 2024@18:12 Collection sample: BLOOD [...] Bacteriology Report Performed By: [facility] [CLIA# [id number]] [place] [address] [facility] Jun 21, 2024 06:11 PM LR MICROBIOLOGY RE PORT: Reporting Lab: [facility] [CLIA# [id number]] [place] [address] Accession [UID]: [id number] [[id number]] Received: Jun 21, 2024@18:11 Collection sample: BLOOD [...] Bacteriology Report Performed By: [facility] [CLIA# [id number]] [place] [address] [facility] Jun 08, 2024 11:00 AM LR MICROBIOLOGY RE PORT: Reporting Lab: [facility] [CLIA# [id number]] [place] [address] Accession [UID]: [id number] [[id number]] Received: Jun 08, 2024@11:00 Collection sample: URINE Collection date: Jun 08, 2024 11:00 Provider: MARYBETH POWELL Comment on specimen: urine Test(s) ordered: CULTURE & SUSCEPTIBILITY...... completed: Jun 09, 2024 * BACTERIOLOGY FINAL REPORT => Jun 09, 2024 19:12 TECH CODE: [id number] CULTURE RESULTS: ESCHERICHIA COLI - Quantity: >100,000 [...] Bacteriology Report Performed By: [facility] [CLIA# [id number]] [place] [address] [facility]
--- OUTSIDE RECORDS SUMMARY | 2024-07-16 07:35 | XMS_ITS ---
[place] DAILY HOSPITALIZATION DATA [facility] Encounter Summary Created on: July 16, 2024 FLACA WEAVER : 1950 Sex: Male Author Name [facility] [place] Organization [facility] [place] Address [address] [place] [address] Care Team Providers Care Lead Instructor/Flight Attendant Name Role Phone JATINDER CABRERA Primary [...] PART A Sep 29, 2016 PART A [id number] [phone] JUDY WEAVER PATIENT Selected Encounter This section includes the information on record at [place] for the Encounter. Date/Time Encounter Type Encounter Description Reason Pro vider Source Jun 24, 2024 09:59 PM Inpatient Visit DAILY HOSPITALIZATION DATA STEFFANIE GRAVES Alex Encounter Template Text not used by [place] [...] 27, 2024 07:00 AM AMBULATORY - NONE [facility] Jun 27, 2024 07:30 AM [facility] Jun 27, 2024 08:00 AM AM[facility]ULATORY - MEDICINE [facility] Jul 03, 2024 05:55 AM AMBULATORY - NONE [facility] Jul 13, 2024 08:15 AM AMBULATORY - NONE [facility] Active, Pending, and Scheduled Orders This section includes a listing of several types of active, pending, and scheduled orders, including clinic medications orders, diagnostic test orders, procedure orders and consult orders; where the start date of the order is 45 days before the date of the Encounter or 45 days after the date of theEncounter. The data comes from all [facility] facilities. Test Date/Time Test Type Test Details [...] Order TYPE & SCREEN - LAB BLOOD [facility] Jul 03, 2024 12:00 AM Laboratory - Blood Bank Order TYPE & SCREEN - LAB BLOOD [facility] Jul 16, 2024 12:00 AM Laboratory - [...] 12:23 PM Reporting Lab: [facility] [address] Performing Lab: [facility] [address] PHOSPHORUS 3.0 mg/dL 2.3-4.3 Jul 10, 2024 07:16 AM [facility] BASIC METABOLIC PANEL+MG Specimen Type: PLASMA No comment entered. Ordering Provider: JUANCARLOS ECHOLS Report Released Date/Time: Jul 09, 2024 12:23 PM Reporting Lab: [facility] [address] Performing Lab: [facility] [address] CREATININE 0.7 mg/dL 0.7-1.2 UREA NITROGEN 27 [...] PM Reporting Lab: [facility] [address] Performing Lab: [facility] [address] WBC 18.8 H 4.0-11.0 RBC 5.08 4.60-6.20 [...] PM Reporting Lab: [facility] [address] Performing Lab: [facility] [address] WBC 15.3 H 4.0-11.0 RBC 4.91 4.60-6.20 [...] AM Reporting Lab: [facility] [address] Performing Lab: [facility] [address] URINE COLOR YELLOW SPECIFIC GRAVITY >1.050 H [...] PM Reporting Lab: [facility] [address] Performing Lab: [facility] [address] WBC 17.5 H 4.0-11.0 RBC 4.88 4.60-6.20 [...] PM Reporting Lab: [facility] [address] Performing Lab: [facility] [address] PHOSPHORUS 2.6 mg/dL 2.3-4.3 Jul 08, 2024 09:54 AM [facility] BASIC METABOLIC PANEL+MG Specimen Type: PLASMA Comment: Specimen received in Lab at: [id number] Ordering Provider: JUANCARLOS ECHOLS Report Released Date/Time: Jul 07, 2024 04:49 PM Reporting Lab: [facility] [address] Performing Lab: [facility] [address] CREATININE 0.9 mg/dL 0.7-1.2 UREA NITROGEN 26 [...] PM Reporting Lab: [facility] [address] Performing Lab: [facility] [address] C DIFF TOX B GENE PCR NEGATIVE Negative Jul 07, 2024 07:41 AM [facility] PHOSPHORUS Specimen Type: PLASMA No comment entered. Ordering Provider: JEVON ZAZUETA Report Released Date/Time: Jul 06, 2024 03:44 PM Reporting Lab: [facility] [address] Performing Lab: [facility] [address] PHOSPHORUS 3.1 mg/dL 2.3-4.3 Jul 07, 2024 07:41 AM [facility] BASIC METABOLIC PANEL+MG Specimen Type: PLASMA No comment entered. Ordering Provider: JEVON ZAZUETA Report Released Date/Time: Jul 06, 2024 03:44 PM Reporting Lab: [facility] [address] Performing Lab: [facility] [address] CREATININE 0.9 mg/dL 0.7-1.2 UREA NITROGEN 20 [...] PM Reporting Lab: [facility] [address] Performing Lab: [facility] [address] WBC 21.2 H 4.0-11.0 RBC 5.09 4.60-6.20 [...] PM Reporting Lab: [facility] [address] Performing Lab: [facility] [address] WBC 18.0 H 4.0-11.0 RBC 4.83 4.60-6.20 [...] PM Reporting Lab: [facility] [address] Performing Lab: [facility] [address] PHOSPHORUS 3.6 mg/dL 2.3-4.3 Jul 06, 2024 07:21 AM [facility] BASIC METABOLIC PANEL+MG Specimen Type: PLASMA No comment entered. Ordering Provider: JEVON ZAZUETA Report Released Date/Time: Jul 05, 2024 01:22 PM Reporting Lab: [facility] [address] Performing Lab: [facility] [address] CREATININE 0.7 mg/dL 0.7-1.2 UREA NITROGEN 12 [...] AM Reporting Lab: [facility] [address] Performing Lab: [facility] [address] MAGNESIUM 2.0 mg/dL 1.6-2.6 Jul 05, 2024 07:17 AM [facility] PHOSPHORUS Specimen Type: PLASMA No comment entered. Ordering Provider: JUANCARLOS ECHOLS S Report Released Date/Time: Jul 04, 2024 09:39 AM Reporting Lab: [facility] [address] Performing Lab: [facility] [address] PHOSPHORUS 2.0 mg/dL L 2.3-4.3 Jul 05, 2024 07:17 AM [facility] BASIC METABOLIC PANEL+MG Specimen Type: PLASMA No comment entered. Ordering Provider: JUANCARLOS ECHOLS S Report Released Date/Time: Jul 04, 2024 09:39 AM Reporting Lab: [facility] [address] Performing Lab: [facility] [address] CREATININE 0.7 mg/dL 0.7-1.2 UREA NITROGEN 12 [...] AM Reporting Lab: [facility] [address] Performing Lab: [facility] [address] WBC 18.3 H 4.0-11.0 RBC 4.49 L [...] PM Reporting Lab: [facility] [address] Performing Lab: [facility] [address] CREATININE 0.7 mg/dL 0.7-1.2 UREA NITROGEN 16 [...] PM Reporting Lab: [facility] [address] Performing Lab: [facility] [address] PHOSPHORUS 2.8 mg/dL 2.3-4.3 Jul 04, 2024 07:16 AM [facility] CBC Specimen Type: BLOOD No comment entered. Ordering Provider: GABINO CAMERON Report Released Date/Time: Jul 03, 2024 06:31 PM Reporting Lab: [facility] [address] Performing Lab: [facility] [address] WBC 20.6 H 4.0-11.0 RBC 4.63 4.60-6.20 [...] PM Reporting Lab: [facility] [address] Performing Lab: [facility] [address] WBC 20.6 H 4.0-11.0 RBC 4.63 4.60-6.20 [...] PM Reporting Lab: [facility] [address] Performing Lab: [facility] [address] BNP 292 pg/mL H <99 Jul 03, 2024 10:32 PM [facility] FINGERSTICK GLUCOSE Specimen Type: BLOOD Comment: Save Result Nurse Notified Ordering Provider: KATELYNN PERSON Report Released Date/Time: Jul 03, 2024 10:50 PM Reporting Lab: [facility] [address] Performing Lab: [facility] [address] FINGERSTICK GLUCOSE 126 mg/dL H 70-100 Jul 03, 2024 05:33 PM [facility] FINGERSTICK GLUCOSE Specimen Type: BLOOD Comment: Save Result Nurse Notified Ordering Provider: KATELYNN PERSON Report Released Date/Time: Jul 03, 2024 05:46 PM Reporting Lab: [facility] [address] Performing Lab: [facility] [address] FINGERSTICK GLUCOSE 141 mg/dL H 70-100 Jul 03, 2024 02:31 PM [facility] POC ABG/ELECTROLYTES Specimen Type: ARTERIAL BLOOD Comment: FIO2 = 97% Patient Temp: 36.0 C Sample Type = ARTERIAL Ordering Provider: MAZIN ARREDONDO Report Released Date/Time: Jul 03, 2024 01:48 PM Reporting Lab: [facility] [address] Performing Lab: [facility] [address] POC PH 7.387 7.35-7.45 POC PCO2 34.4 [...] PM Reporting Lab: [facility] [address] Performing Lab: [facility] [address] POC PH 7.280 L 7.35-7.45 POC PCO2 [...] PM Reporting Lab: [facility] [address] Performing Lab: [facility] [address] URINE COLOR YELLOW SPECIFIC GRAVITY 1.031 1.003-1.03 [...] PM Reporting Lab: [facility] [address] Performing Lab: [facility] [address] WBC 15.8 H 4.0-11.0 RBC 5.11 4.60-6.20 [...] PM Reporting Lab: [facility] [address] Performing Lab: [facility] [address] CREATININE 0.8 mg/dL 0.7-1.2 UREA NITROGEN 13 [...] PM Reporting Lab: [facility] [address] Performing Lab: [facility] [address] WBC 15.5 H 4.0-11.0 RBC 4.93 4.60-6.20 [...] PM Reporting Lab: [facility] [address] Performing Lab: [facility] [address] CREATININE 0.7 mg/dL 0.7-1.2 UREA NITROGEN 16 [...] PM Reporting Lab: [facility] [address] Performing Lab: [facility] [address] WBC 14.9 H 4.0-11.0 RBC 5.09 4.60-6.20 [...] PM Reporting Lab: [facility] [address] Performing Lab: [facility] [address] CREATININE 0.7 mg/dL 0.7-1.2 UREA NITROGEN 17 [...] PM Reporting Lab: [facility] [address] Performing Lab: [facility] [address] WBC 16.9 H 4.0-11.0 RBC 5.28 4.60-6.20 [...] PM Reporting Lab: [facility] [address] Performing Lab: [facility] [address] URINE COLOR YELLOW SPECIFIC GRAVITY 1.041 H [...] PM Reporting Lab: [facility] [address] Performing Lab: [facility] [address] POC CREATININE 1.1 mg/dL 0.6-1.3 Jun 21, 2024 05:30 PM [facility] POC ABG/LACTATE Specimen Type: VENOUS BLOOD No comment entered. Ordering Provider: DELIA MARTINEZ Report Released Date/Time: Jun 21, 2024 06:07 PM Reporting Lab: [facility] [address] Performing Lab: [facility] [address] POC PH 7.470 H 7.31-7.41 POC PCO2 [...] PM Reporting Lab: [facility] [address] Performing Lab: [facility] [address] .INR 1.2 H 0.8-1.1 .PT 13.9 s H 9.4-12.5 Jun 21, 2024 05:24 PM [facility] LIPASE Specimen Type: PLASMA No comment entered. Ordering Provider: DELIA MARTINEZ Report Released Date/Time: Jun 21, 2024 05:30 PM Reporting Lab: [facility] [address] Performing Lab: [facility] [address] LIPASE 32 U/L <60 Jun 21, 2024 05:24 PM [facility] EXTRA GOLD GEL TUBE Specimen Type: SERUM No comment entered. Ordering Provider: DELIA MARTINEZ Report Released Date/Time: Jun 21, 2024 05:41 PM Reporting Lab: [facility] [address] Performing Lab: [facility] [address] EXTRA GOLD GEL TUBE RECEIVED Jun 21, 2024 05:24 PM [facility] COMPREHENSIVE METABOLIC PANEL+MG Specimen Type: PLASMA No comment entered. Ordering Provider: DELIA MARTINEZ Report Released Date/Time: Jun 21, 2024 05:30 PM Reporting Lab: [facility] [address] Performing Lab: [facility] [address] CREATININE 0.9 mg/dL 0.7-1.2 UREA NITROGEN 29 [...] PM Reporting Lab: [facility] [address] Performing Lab: [facility] [address] WBC 21.3 H 4.0-11.0 RBC 5.48 4.60-6.20 [...] May 28, 2024 09:02 AM Reporting Lab: [facility] [address] Performing Lab: [facility] [address] .INR 1.0 0.8-1.1 .PT 11.8 s 9.4-12.5 [...] May 28, 2024 09:02 AM Reporting Lab: [facility] [address] Performing Lab: [facility] [address] HEMOGLOBIN A1C 4.9 4.0-6.0 Jun 08, 2024 10:59 AM [facility] CBC Specimen Type: BLOOD No comment entered. Ordering Provider: MARYBETH POWELL Report Released Date/Time: May 28, 2024 09:02 AM Reporting Lab: [facility] [address] Performing Lab: [facility] [address] WBC 16.1 H 4.0-11.0 RBC 5.02 4.60-6.20 [...] May 28, 2024 09:02 AM Reporting Lab: [facility] [address] Performing Lab: [facility] [address] CREATININE 0.9 mg/dL 0.7-1.2 UREA NITROGEN 15 [...] [facility] Mar 20, 2019 04:03 PM DE-TOBACCO QUIT 5 TO < 15 YRS [facility] [...] TERAN CARLOSEDUARDO LOZANO [facility] [...] 2 VIEWS PA AND LAT: MEGFLACA YAMIL [id number] -1950 M Exm Date: JUL 08, 2024@10:09 Req Phys: KATELYNN PERSON Loc: 2KG07-08-2024@11:49 Img Loc: MAIN X-RAY Service: [place] [address] (Case 24 COMPLETE) CHEST 2 VIEWS PA AND LAT (RAD Detailed) CPT:14065 Reason for Study: Uptrending WBC, POD 5 Clinical History: [place] IS NOT under investigation for COVID-19 or is COVID-19 negative POD 5, work up for uptrending wbc Responsible provider name and phone number to notify for critical findings if other than user placing the order and pager listed below: User placing orders pager: Katelynn Person LAST CREATININE 0.9 (07/07/24) Report Status: Verified Date Reported: JUL 08, 2024 Date Verified: JUL 08, 2024 Riding Coach E-Sig: Report: CHEST 2 VIEWS PA AND [...] cardiopulmonary disease. READING PHYSICIAN: Sarbjit Vaughn M.D. -[phone] 07/08/2024 12:46 EST [facility] National Teleradiology Program [phone] (For Medical Practitioner Use Only) Attention Patients / Veterans: If you have questions or concerns about these test results, please contact your ordering provider or primary care team. Primary Interpreting Staff: RADIOLOGY,OUTSIDE SERVICE, Staff Physician / RADIOLOGY,OUTSIDE SERVICE [facility] Jul 08, 2024 10:[address] (AP) ABDOMEN/PELVIS W CONTRAST: FLACA WEAVER [id number] -1950 Ex Date: JUL 08, 2024@10:00 Req Phys: KATELYNN PERSON Pat Loc: 2KG/07-08-2024@12:07 Img Loc: CT IMAGING Service: [place] [address] (Case 22 COMPLETE) CT (AP) ABDOMEN/PELVIS W CONTRAST(CT Detailed) CPT:72964 Contrast Media : Non-ionic Iodinated Reason for [...] 08, 2024 Date Verified: JUL 08, 2024 Riding Coach E-Sig: Report: CT (AP) ABDOMEN/PELVIS W CONTRAST [...] as noted above READING PHYSICIAN: Celestino Blanc -[phone] 07/08/2024 13:04 [facility] LegitTraderradiology Program [phone] (For Medical Practitioner Use Only) Attention Patients / Veterans: If you have questions or concerns about these test results, please contact your ordering provider or primary care team. Primary Interpreting Staff: RADIOLOGY,OUTSIDE SERVICE, Staff Physician / RADIOLOGY,OUTSIDE SERVICE [facility] Jun 22, 2024 11:49 AM ABSCESS DRAIN PLACEMENT PERITONEAL (P): FLACA WEAVER [id number] -1950 M Exm Date: JUN 22, 2024@11:49 Req Phys: ANGELA HOLDEN [facility] Loc: [facility]06-22-2024@17:14 Img Loc: INTERVENTIONAL RADIOLOGY Service: [place] [address] (Case [id number] COMPLETE) IR PERITONEAL/RETROPERITONEAL PER(ANI Detailed) CPT:66900 Reason for Study: diverticulitis with abscess (Case [id number] COMPLETE) IR MOD SEDATION 10-22 MIN (ANI Detailed) CPT:63033 Clinical History: [place] IS NOT under investigation for COVID-19 or is COVID-19 negative 73 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 please place abscess drain. Contact number for responsible provider who can be reached for any questions or notifications of critical findings: [phone] n/a LAST CREATININE 0.9 (06/21/24) Report Status: Verified Date Reported: JUN 22, 2024 Date Verified: JUN 22, 2024 Riding Coach E-Sig:/ES/LISA PENDLETON MD Report: PROCEDURES: Placement of [...] obtained. A pre-procedural Time-Out was performed per [facility] policy. The patient was placed in the supine position on the CT table. Preprocedural scan performed. The suprapubic region/lower abdominal wall was sterilely prepped and draped in the usual fashion.1% lidocaine without epinephrine was used for local anesthesia. Using real-time CT fluoroscopy, a 5 Gabonese [employer] catheter was advanced into the collection in [...] Primary Interpreting Staff: LISA PENDLETON MD, RADIOLOGIST (Riding Coach) /JRT LISA PENDLETON [facility] Jun 22, 2024 11:[address] NEEDLE PLACEMENT (P): FLACA WEAVER [id number] -1950 M Exm Date: JUN 22, 2024@11:48 Req Phys: ANGELA HOLDEN Loc: [facility]06-22-2024@17:14 Img Loc: CT IMAGING Service: [place] [address] (Case [id number] COMPLETE) CT SCAN FOR NEEDLE PLACEMENT (CT Detailed) CPT:67901 Reason for Study: l pelvic abscess drain Clinical History: Report Status: Verified Date Reported: JUN 22, 2024 Date Verified: JUN 22, 2024 Riding Coach E-Sig:/ES/LISA PENDLETON MD Report: PROCEDURES: Placement of [...] obtained. A pre-procedural Time-Out was performed per [facility] policy. The patient was placed in the supine position on the CT table. Preprocedural scan performed. The suprapubic region/lower abdominal wall was sterilely prepped and draped in the usual fashion.1% lidocaine without epinephrine was used for local anesthesia. Using real-time CT fluoroscopy, a 5 Gabonese [employer] catheter was advanced into the collection in [...] Primary Interpreting Staff: LISA PENDLETON MD, RADIOLOGIST (Riding Coach) /JRT LISA PENDLETON [facility] Jun 21, 2024 06:[address] (AP) ABDOMEN/PELVIS (P): FLACA WEAVER [id number] -1950 M Exm Date: JUN 21, 2024@18:09 Req Phys: DELIA MARTINEZ Loc: [facility] EMERGENCY DEPT WALK-IN (Re Img Loc: CT IMAGING Service: [place] [address] (Case [id number] COMPLETE) CT (AP) ABDOMEN/PELVIS W CONTRAST(CT Detailed) CPT:76575 Contrast Media : Non-ionic Iodinated Reason for [...] Allergies: ([place] only) TERAZOSIN (Mar 13, 2015) Defer to [...] 21, 2024 Date Verified: JUN 21, 2024 Riding Coach E-Sig:/ALEXI/CARLOS A CUNNINGHAM DO Report: EXAMINATION: CT [...] Interpreting Staff: CARLOS A CUNNINGHAM DO, RADIOLOGIST (Riding Coach) /CARLOS A ROWELL [facility] May 25, 2024 09:00 AM IR FISTULOGRAM OR SINOGRAM : FLACA WEAVER [id number] -1950 M Ex Date: MAY 25, 2024@09:00 Req Phys: AMINTA PRUITT Loc: [facility]SP XRAY INTERVENTIONAL RADIO Img Loc: INTERVENTIONAL RADIOLOGY Service: [place] [address] (Case [id number] COMPLETE) IR FISTULOGRAM OR SINOGRAM (ANI Detailed) CPT:01921 Contrast Media : unspecified contrast media Reason for Study: s/p drain placement for diverticular abscess- assess for drain Clinical History: [place] IS NOT under investigation for COVID-19 or [...] 25, 2024 Date Verified: MAY 25, 2024 Riding Coach E-Sig:/ES/DAVID BURNS MD Report: PROCEDURES 05/25/2024 9:48 [...] Primary Interpreting Staff: DAVID BURNS MD, RADIOLOGIST (Riding Coach) /CSS DAVID BURNS [facility] May 25, 2024 08:[address] (AP) ABDOMEN/PELVIS (P): FLACA WEAVER [id number] -1950 M Exm Date: MAY 25, 2024@08:23 Req Phys: DAVID BURNS Pat Loc: MSP XRAY INTERVENTIONAL RADIO Img Loc: CT IMAGING Service: [place] [address] (Case [id number] COMPLETE) CT (AP) ABDOMEN/PELVIS W/O CONTRA(CT Detailed) CPT:26322 Reason for Study: assess abscess and possible [...] 25, 2024 Date Verified: MAY 25, 2024 Riding Coach E-Sig:/ES/JESSENIA GOODMAN MD Report: EXAM: CT abdomen and pelvis without intravenous contrast. 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 TECHNIQUE: Helical acquisition of image data was performed for the abdomen and pelvis without intravenous contrast. Dose: 512.57 mGy*cm COMPARISON: CT abdomen pelvis with contrast 05/11/[address] abdomen pelvis 04/23/2024.; CT abdomen pelvis 05/05/2020 FINDINGS: CURBSTONE SETTER: Pigtail catheter projecting over the left [...] Primary Interpreting Staff: JESSENIA GOODMAN MD, RADIOLOGIST (Riding Coach) Primary Interpreting Resident: YOHANNES MELO DO, ADMITTING SUPERVISOR /JESSENIA LOUIE [facility] Pathology Reports: +/- [...] COMPLETED $APHDR Reporting Lab: [facility] [CLIA# [id number]] [place] [address] - - - - - - - [...] - PATHOLOGY REPORT Accession No. [id number] - - - - - - - [...] - PATHOLOGY REPORT Accession No. [id number] - - - - - - - [...] Second circumferential surgical margin, en face; E-F: Employee Benefits Administrator diverticula; G: Employee Benefits Administrator section of mesentery; H: Random financial services representative section of additional adipose tissue [...] Pathology Report Performed By: [facility] [CLIA# [id number]] [place] [address] $FTR - - - - - - - - - - - - - - - - - - - - - - - - - - - - - - - - - - - - - - - - (End of report) EDUARDO PALOMARES MD [facility] Date Jul 06, 2024 - - - - - - - - - - - - - - - - - - - - - - - - - - - - - - - - - - - - - - - - FLACA WEAVER STANDARD FORM 515 ID:[id number] SEX:M :1950 AGE: 73 LOC:[id number] ADM:Jun DX:DIVERTICULITIS PCP: Jatinder Cabrera /alexi/ EDUARDO PALOMARES MD STAFF PATHOLOGIST Signed: 07/06/2024 10:40 EDUARDO PALOMARES [facility] Jun 22, 2024 01:15 PM LR MICROBIOLOGY RE PORT: Reporting Lab: [facility] [CLIA# [id number]] [place] [address] Accession [UID]: [id number] [[id number]] Received: Jun 22, 2024@13:38 Collection sample: FLUID Collection date: Jun 22, 2024 13:15 Provider: ANGELA HOLDEN Comment on specimen: LLQ ABSCESS, RECEIVED IN ANAEROBIC TRANSPORT VIAL Test(s) ordered: GRAM STAIN.................... completed: Jun 22, 2024 15:03 CULTURE & SUSCEPTIBILITY...... completed: Jun 25, 2024 * BACTERIOLOGY FINAL REPORT => Jun 25, 2024 10:56 TECH CODE: [id number] GRAM STAIN: DIRECT SMEAR of specimen before [...] Bacteriology Report Performed By: [facility] [CLIA# [id number]] [place] [address] [facility] Jun 22, 2024 01:15 PM LR MICROBIOLOGY RE PORT: Reporting Lab: [facility] [CLIA# [id number]] [place] [address] Accession [UID]: [id number] [[id number]] Received: Jun 22, 2024@13:38 Collection sample: FLUID Collection date: Jun 22, 2024 13:15 Provider: ANGELA HOLDEN Comment on specimen: LLQ ABSCESS, RECEIVED IN ANAEROBIC TRANSPORT VIAL Test(s) ordered: ANAEROBIC CULTURE............. completed: Jun 28, 2024 * BACTERIOLOGY FINAL REPORT => Jun 28, 2024 10:08 TECH CODE: [id number] CULTURE RESULTS: HEAVY GROWTH MIXED ANAEROBES Comment: [...] Bacteriology Report Performed By: [facility] [CLIA# [id number]] [place] [address] [facility] Jun 21, 2024 06:12 PM LR MICROBIOLOGY RE PORT: Reporting Lab: [facility] [CLIA# [id number]] [place] [address] Accession [UID]: [id number] [[id number]] Received: Jun 21, 2024@18:12 Collection sample: BLOOD [...] Bacteriology Report Performed By: [facility] [CLIA# [id number]] [place] [address] [facility] Jun 21, 2024 06:11 PM LR MICROBIOLOGY RE PORT: Reporting Lab: [facility] [CLIA# [id number]] [place] [address] Accession [UID]: [id number] [[id number]] Received: Jun 21, 2024@18:11 Collection sample: BLOOD [...] Bacteriology Report Performed By: [facility] [CLIA# [id number]] [place] [address] [facility] Jun 08, 2024 11:00 AM LR MICROBIOLOGY RE PORT: Reporting Lab: [facility] [CLIA# [id number]] [place] [address] Accession [UID]: [id number] [[id number]] Received: Jun 08, 2024@11:00 Collection sample: URINE Collection date: Jun 08, 2024 11:00 Provider: MARYBETH POWELL Comment on specimen: urine Test(s) ordered: CULTURE & SUSCEPTIBILITY...... completed: Jun 09, 2024 * BACTERIOLOGY FINAL REPORT => Jun 09, 2024 19:12 TECH CODE: [id number] CULTURE RESULTS: ESCHERICHIA COLI - Quantity: >100,000 [...] Bacteriology Report Performed By: [facility] [CLIA# [id number]] [place] [address] [facility]
--- OUTSIDE RECORDS SUMMARY | 2024-07-16 07:35 | XMS_ITS ---
[place] DAILY HOSPITALIZATION DATA [facility] Encounter Summary Created on: July 16, 2024 MEG FLACADARCI LOBO : 1950 Sex: Male Author Name [facility] [place] [facility] [place] Address [address] [place] [address] Care Team Providers Care Senior Infrastructure Engineer Name Role Phone JATINDER CABRERA Primary Care [...] PART A Sep 29, 2016 PART A [id number] [phone] JUDY WEAVER PATIENT Selected Encounter This section includes the information on record at [place] for the Encounter. Date/Time Encounter Type Encounter Description Reason Pro vider Source Jun 25, 2024 08:40 AM Inpatient Visit DAILY HOSPITALIZATION DATA [facility] Encounter Template Text not used by [place] [...] 27, 2024 07:00 AM AMBULATORY - NONE [facility] Jun 27, 2024 07:30 AM AMBULATORY - MEDICINE [facility] Jun 27, 2024 08:00 AM AMBULATORY - MEDICINE [facility] Jul 03, 2024 05:55 AM AMBULATORY - NONE [facility] Jul 13, 2024 08:15 AM AMBULATORY - NONE [facility] Active, Pending, and Scheduled Orders This section includes a listing of several types of active, pending, and scheduled orders, including clinic medications orders, diagnostic test orders, procedure orders and consult orders; where the start date of the order is 45 days before the date of the Encounter or 45 days after the date of theEncounter. The data comes from all [facility] facilities. Test Date/Time Test Type Test Details Facility Name May 28, 2024 12:00 AM Laboratory - Blood Bank Order TYPE & SCREEN - LAB BLOOD SP [facility] Jun 08, 2024 09:57 AM Laboratory - Chemi stry Order URINALYSIS URINE WC ONCE [facility] Jun 12, 2024 12:00 AM Laboratory - Chemi stry Order BNP PLASMA SP ONCE [facility] Jun 21, 2024 05:45 PM Laboratory - Blood Bank Order TYPE & SCREEN - LAB BLOOD [facility] Jul 03, 2024 12:00 AM Laboratory - Blood Bank Order TYPE & SCREEN - LAB BLOOD [facility] Jul 16, 2024 12:00 AM Laboratory - Chemi stry Order CBC BLOOD SP ONCE [facility] Jul 17, 2024 12:00 AM Laboratory - Chemi stry Order BASIC METABOLIC PANEL+MG PLASMA SP ONCE [facility] Lab Results: +/- 30 days of [...] Range Comment Jul 10, 2024 07:16 AM [facility] PHOSPHORUS Specimen Type: PLASMA No comment entered. Ordering Provider: JUANCARLOS ECHOLS Report Released Date/Time: Jul 09, 2024 12:23 PM Reporting Lab: [facility] [address] Performing Lab: [facility] [address] PHOSPHORUS 3.0 mg/dL 2.3-4.3 Jul 10, 2024 07:16 AM [facility] BASIC METABOLIC PANEL+MG Specimen Type: PLASMA No comment entered. Ordering Provider: JUANCARLOS ECHOLS Report Released Date/Time: Jul 09, 2024 12:23 PM Reporting Lab: [facility] [address] Performing Lab: [facility] [address] CREATININE 0.7 mg/dL 0.7-1.2 UREA NITROGEN 27 mg/dL H 8-26 GLUCOSE 104 mg/dL H 70-100 SODIUM 133 mmol/L L 136-145 POTASSIUM 4.3 mmol/L 3.5-5.1 CHLORIDE 102 mmol/L 98-107 CO2 19 mmol/L L 22-29 CALCIUM 10.1 mg/dL 8.4-10.2 MAGNESIUM 1.9 mg/dL 1.6-2.6 ANION GAP 12 mmol/L 5-15 .CREAT EGFR(CKD-EPI) >90 >60 Jul 10, 2024 07:15 AM [facility] CBC Specimen Type: BLOOD No comment entered. Ordering Provider: JUANCARLOS ECHOLS S Report Released Date/Time: Jul 09, 2024 12:23 PM Reporting Lab: [facility] [address] Performing Lab: [facility] [address] WBC 18.8 H 4.0-11.0 RBC 5.08 4.60-6.20 HGB 15.9 g/dL 13.5-17.9 HCT 46.8 41.0-54.0 MCV 92.1 fL 80.0-100.0 MCH 31.3 pg 27.0-33.0 MCHC 34.0 g/dL 32.0-37.5 PLT 479 H 150-400 MPV 10.2 fL 9.1-13.0 RDW 13.7 11.5-14.5 Jul 09, 2024 07:08 AM [facility] CBC Specimen Type: BLOOD No comment entered. Ordering Provider: QUYNH WEISS AV Report Released Date/Time: Jul 08, 2024 06:18 PM Reporting Lab: [facility] [address] Performing Lab: [facility] [address] WBC 15.3 H 4.0-11.0 RBC 4.91 4.60-6.20 HGB 15.1 g/dL 13.5-17.9 HCT 45.7 41.0-54.0 MCV 93.1 fL 80.0-100.0 MCH 30.8 pg 27.0-33.0 MCHC 33.0 g/dL 32.0-37.5 PLT 443 H 150-400 MPV 10.0 fL 9.1-13.0 RDW 13.5 11.5-14.5 Jul 08, 2024 10:50 AM [facility] URINALYSIS Specimen Type: URINE No comment entered. Ordering Provider: KATELYNN PERSON Report Released Date/Time: Jul 08, 2024 08:41 AM Reporting Lab: [facility] [address] Performing Lab: [facility] [address] URINE COLOR YELLOW SPECIFIC GRAVITY >1.050 H [...] NEGATIVE NEGATIVE Jul 08, 2024 09:54 AM [facility] CBC Specimen Type: BLOOD Comment: Specimen received in Lab at: 0952 Ordering Provider: JUANCARLOS ECHOLS Report Released Date/Time: Jul 07, 2024 04:49 PM Reporting Lab: [facility] [address] Performing Lab: [facility] [address] WBC 17.5 H 4.0-11.0 RBC 4.88 4.60-6.20 HGB 14.9 g/dL 13.5-17.9 HCT 45.7 41.0-54.0 MCV 93.6 fL 80.0-100.0 MCH 30.5 pg 27.0-33.0 MCHC 32.6 g/dL 32.0-37.5 PLT 472 H 150-400 MPV 10.2 fL 9.1-13.0 RDW 13.7 11.5-14.5 Jul 08, 2024 09:54 AM [facility] PHOSPHORUS Specimen Type: PLASMA Comment: Specimen received in Lab at: 0952 Ordering Provider: JUANCARLOS ECHOLS Report Released Date/Time: Jul 07, 2024 04:49 PM Reporting Lab: [facility] [address] Performing Lab: [facility] [address] PHOSPHORUS 2.6 mg/dL 2.3-4.3 Jul 08, 2024 09:54 AM [facility] BASIC METABOLIC PANEL+MG Specimen Type: PLASMA Comment: Specimen received in Lab at: 0952 Ordering Provider: JUANCARLOS ECHOLS Report Released Date/Time: Jul 07, 2024 04:49 PM Reporting Lab: [facility] [address] Performing Lab: [facility] [address] CREATININE 0.9 mg/dL 0.7-1.2 UREA NITROGEN 26 mg/dL 8-26 GLUCOSE 128 mg/dL H 70-100 SODIUM 134 mmol/L L 136-145 POTASSIUM 3.4 mmol/L L 3.5-5.1 CHLORIDE 100 mmol/L 98-107 CO2 24 mmol/L 22-29 CALCIUM 9.8 mg/dL 8.4-10.2 MAGNESIUM 1.8 mg/dL 1.6-2.6 ANION GAP 10 mmol/L 5-15 .CREAT EGFR(CKD-EPI) >90 >60 Jul 07, 2024 02:00 PM [facility] C DIFF PANEL Specimen Type: FECES No comment entered. Ordering Provider: JEVON ZAZUETA Report Released Date/Time: Jul 07, 2024 12:26 PM Reporting Lab: [facility] [address] Performing Lab: [facility] [address] C DIFF TOX B GENE PCR NEGATIVE Negative Jul 07, 2024 07:41 AM [facility] PHOSPHORUS Specimen Type: PLASMA No comment entered. Ordering Provider: JEVON ZAZUETA Report Released Date/Time: Jul 06, 2024 03:44 PM Reporting Lab: [facility] [address] Performing Lab: [facility] [address] PHOSPHORUS 3.1 mg/dL 2.3-4.3 Jul 07, 2024 07:41 AM [facility] BASIC METABOLIC PANEL+MG Specimen Type: PLASMA No comment entered. Ordering Provider: JEVON ZAZUETA Report Released Date/Time: Jul 06, 2024 03:44 PM Reporting Lab: [facility] [address] Performing Lab: [facility] [address] CREATININE 0.9 mg/dL 0.7-1.2 UREA NITROGEN 20 mg/dL 8-26 GLUCOSE 157 mg/dL H 70-100 SODIUM 136 mmol/L 136-145 POTASSIUM 3.7 mmol/L 3.5-5.1 CHLORIDE 102 mmol/L 98-107 CO2 21 mmol/L L 22-29 CALCIUM 9.8 mg/dL 8.4-10.2 MAGNESIUM 1.9 mg/dL 1.6-2.6 ANION GAP 13 mmol/L 5-15 .CREAT EGFR(CKD-EPI) >90 >60 Jul 07, 2024 07:40 AM [facility] CBC Specimen Type: BLOOD No comment entered. Ordering Provider: JEVON ZAZUETA Report Released Date/Time: Jul 06, 2024 03:44 PM Reporting Lab: [facility] [address] Performing Lab: [facility] [address] WBC 21.2 H 4.0-11.0 RBC 5.09 4.60-6.20 HGB 15.9 g/dL 13.5-17.9 HCT 48.3 41.0-54.0 MCV 94.9 fL 80.0-100.0 MCH 31.2 pg 27.0-33.0 MCHC 32.9 g/dL 32.0-37.5 PLT 500 H 150-400 MPV 10.3 fL 9.1-13.0 RDW 13.6 11.5-14.5 Jul 06, 2024 07:21 AM [facility] CBC Specimen Type: BLOOD No comment entered. Ordering Provider: JEVON ZAZUETA Report Released Date/Time: Jul 05, 2024 01:22 PM Reporting Lab: [facility] [address] Performing Lab: [facility] [address] WBC 18.0 H 4.0-11.0 RBC 4.83 4.60-6.20 HGB 14.6 g/dL 13.5-17.9 HCT 45.5 41.0-54.0 MCV 94.2 fL 80.0-100.0 MCH 30.2 pg 27.0-33.0 MCHC 32.1 g/dL 32.0-37.5 PLT 368 150-400 MPV 10.4 fL 9.1-13.0 RDW 13.6 11.5-14.5 Jul 06, 2024 07:21 AM [facility] PHOSPHORUS Specimen Type: PLASMA No comment entered. Ordering Provider: JEVON ZAZUETA Report Released Date/Time: Jul 05, 2024 01:22 PM Reporting Lab: [facility] [address] Performing Lab: [facility] [address] PHOSPHORUS 3.6 mg/dL 2.3-4.3 Jul 06, 2024 07:21 AM [facility] BASIC METABOLIC PANEL+MG Specimen Type: PLASMA No comment entered. Ordering Provider: JEVON ZAZUETA Report Released Date/Time: Jul 05, 2024 01:22 PM Reporting Lab: [facility] [address] Performing Lab: [facility] [address] CREATININE 0.7 mg/dL 0.7-1.2 UREA NITROGEN 12 mg/dL 8-26 GLUCOSE 108 mg/dL H 70-100 SODIUM 138 mmol/L 136-145 POTASSIUM 3.4 mmol/L L 3.5-5.1 CHLORIDE 104 mmol/L 98-107 CO2 20 mmol/L L 22-29 CALCIUM 9.3 mg/dL 8.4-10.2 MAGNESIUM 1.9 mg/dL 1.6-2.6 ANION GAP 14 mmol/L 5-15 .CREAT EGFR(CKD-EPI) >90 >60 Jul 05, 2024 07:17 AM [facility] MAGNESIUM Specimen Type: PLASMA No comment entered. Ordering Provider: JUANCARLSO ECHOLS Report Released Date/Time: Jul 04, 2024 09:39 AM Reporting Lab: [facility] [address] Performing Lab: [facility] [address] MAGNESIUM 2.0 mg/dL 1.6-2.6 Jul 05, 2024 07:17 AM [facility] PHOSPHORUS Specimen Type: PLASMA No comment entered. Ordering Provider: JUANCARLOS ECHOLS S Report Released Date/Time: Jul 04, 2024 09:39 AM Reporting Lab: [facility] [address] Performing Lab: [facility] [address] PHOSPHORUS 2.0 mg/dL L 2.3-4.3 Jul 05, 2024 07:17 AM [facility] BASIC METABOLIC PANEL+MG Specimen Type: PLASMA No comment entered. Ordering Provider: JUANCARLOS ECHOLS S Report Released Date/Time: Jul 04, 2024 09:39 AM Reporting Lab: [facility] [address] Performing Lab: [facility] [address] CREATININE 0.7 mg/dL 0.7-1.2 UREA NITROGEN 12 mg/dL 8-26 GLUCOSE 84 mg/dL 70-100 SODIUM 135 mmol/L L 136-145 POTASSIUM 3.8 mmol/L 3.5-5.1 CHLORIDE 104 mmol/L 98-107 CO2 24 mmol/L 22-29 CALCIUM 9.3 mg/dL 8.4-10.2 MAGNESIUM 2.0 mg/dL 1.6-2.6 ANION GAP 7 mmol/L 5-15 .CREAT EGFR(CKD-EPI) >90 >60 Jul 05, 2024 07:16 AM [facility] CBC Specimen Type: BLOOD No comment entered. Ordering Provider: JUANCARLOS ECHOLS S Report Released Date/Time: Jul 04, 2024 09:39 AM Reporting Lab: [facility] [address] Performing Lab: [facility] [address] WBC 18.3 H 4.0-11.0 RBC 4.49 L 4.60-6.20 HGB 14.1 g/dL 13.5-17.9 HCT 43.4 41.0-54.0 MCV 96.7 fL 80.0-100.0 MCH 31.4 pg 27.0-33.0 MCHC 32.5 g/dL 32.0-37.5 PLT 317 150-400 MPV 10.0 fL 9.1-13.0 RDW 13.9 11.5-14.5 Jul 04, 2024 07:17 AM [facility] BASIC METABOLIC PANEL+MG Specimen Type: PLASMA No comment entered. Ordering Provider: GABINO CAMERON Report Released Date/Time: Jul 03, 2024 06:31 PM Reporting Lab: [facility] [address] Performing Lab: [facility] [address] CREATININE 0.7 mg/dL 0.7-1.2 UREA NITROGEN 16 mg/dL 8-26 GLUCOSE 129 mg/dL H 70-100 SODIUM 137 mmol/L 136-145 POTASSIUM 3.7 mmol/L 3.5-5.1 CHLORIDE 107 mmol/L 98-107 CO2 22 mmol/L 22-29 CALCIUM 9.0 mg/dL 8.4-10.2 MAGNESIUM 1.9 mg/dL 1.6-2.6 ANION GAP 8 mmol/L 5-15 .CREAT EGFR(CKD-EPI) >90 >60 Jul 04, 2024 07:17 AM [facility] PHOSPHORUS Specimen Type: PLASMA No comment entered. Ordering Provider: GABINO CAMERON Report Released Date/Time: Jul 03, 2024 06:31 PM Reporting Lab: [facility] [address] Performing Lab: [facility] [address] PHOSPHORUS 2.8 mg/dL 2.3-4.3 Jul 04, 2024 07:16 AM [facility] CBC Specimen Type: BLOOD No comment entered. Ordering Provider: GABINO CAMERON Report Released Date/Time: Jul 03, 2024 06:31 PM Reporting Lab: [facility] [address] Performing Lab: [facility] [address] WBC 20.6 H 4.0-11.0 RBC 4.63 4.60-6.20 HGB 14.2 g/dL 13.5-17.9 HCT 43.4 41.0-54.0 MCV 93.7 fL 80.0-100.0 MCH 30.7 pg 27.0-33.0 MCHC 32.7 g/dL 32.0-37.5 PLT 329 150-400 MPV 10.4 fL 9.1-13.0 RDW 13.8 11.5-14.5 Jul 04, 2024 07:16 AM [facility] CBC & DIFF Specimen Type: BLOOD Comment: Manual Differential Performed Ordering Provider: GABINO CAMERON Report Released Date/Time: Jul 03, 2024 06:31 PM Reporting Lab: [facility] [address] Performing Lab: [facility] [address] WBC 20.6 H 4.0-11.0 RBC 4.63 4.60-6.20 [...] MORPHOLOGY PRESENT Jul 04, 2024 07:15 AM [facility] BNP Specimen Type: PLASMA No comment entered. Ordering Provider: GABINO CAMERON Report Released Date/Time: Jul 03, 2024 06:31 PM Reporting Lab: [facility] [address] Performing Lab: [facility] [address] BNP 292 pg/mL H <99 Jul 03, 2024 10:32 PM [facility] FINGERSTICK GLUCOSE Specimen Type: BLOOD Comment: Save Result Nurse Notified Ordering Provider: KATELYNN PERSON Report Released Date/Time: Jul 03, 2024 10:50 PM Reporting Lab: [facility] [address] Performing Lab: [facility] [address] FINGERSTICK GLUCOSE 126 mg/dL H 70-100 Jul 03, 2024 05:33 PM [facility] FINGERSTICK GLUCOSE Specimen Type: BLOOD Comment: Save Result Nurse Notified Ordering Provider: KATELYNN PERSON Report Released Date/Time: Jul 03, 2024 05:46 PM Reporting Lab: [facility] [address] Performing Lab: [facility] [address] FINGERSTICK GLUCOSE 141 mg/dL H 70-100 Jul 03, 2024 02:31 PM [facility] POC ABG/ELECTROLYTES Specimen Type: ARTERIAL BLOOD Comment: FIO2 = 97% Patient Temp: 36.0 C Sample Type = ARTERIAL Ordering Provider: MAZIN ARREDONDO Report Released Date/Time: Jul 03, 2024 01:48 PM Reporting Lab: [facility] [address] Performing Lab: [facility] [address] POC PH 7.387 7.35-7.45 POC PCO2 34.4 [...] H 80.0-105.0 Jul 03, 2024 01:05 PM [facility] POC ABG/ELECTROLYTES Specimen Type: ARTERIAL BLOOD Comment: FIO2 = 53% Patient Temp: 36.2 C Sample Type = ARTERIAL Ordering Provider: MAZIN ARREDONDO Report Released Date/Time: Jul 03, 2024 01:48 PM Reporting Lab: [facility] [address] Performing Lab: [facility] [address] POC PH 7.280 L 7.35-7.45 POC PCO2 [...] mm[Hg] 80.0-105.0 Jul 03, 2024 06:15 AM [facility] URINALYSIS Specimen Type: URINE No comment entered. Ordering Provider: MARYBETH POWELL Report Released Date/Time: Jun 12, 2024 04:01 PM Reporting Lab: [facility] [address] Performing Lab: [facility] [address] URINE COLOR YELLOW SPECIFIC GRAVITY 1.031 1.003-1.03 [...] 250 NEGATIVE Jul 03, 2024 06:13 AM [facility] CBC Specimen Type: BLOOD No comment entered. Ordering Provider: MARYBETH POWELL Report Released Date/Time: Jun 12, 2024 03:59 PM Reporting Lab: [facility] [address] Performing Lab: [facility] [address] WBC 15.8 H 4.0-11.0 RBC 5.11 4.60-6.20 HGB 16.1 g/dL 13.5-17.9 HCT 49.1 41.0-54.0 MCV 96.1 fL 80.0-100.0 MCH 31.5 pg 27.0-33.0 MCHC 32.8 g/dL 32.0-37.5 PLT 357 150-400 MPV 9.8 fL 9.1-13.0 RDW 13.7 11.5-14.5 Jun 24, 2024 09:50 AM [facility] BASIC METABOLIC PANEL+MG Specimen Type: PLASMA Comment: Specimen received in Lab at: 0948 Ordering Provider: JEVON ZAZUETA Report Released Date/Time: Jun 23, 2024 06:07 PM Reporting Lab: [facility] [address] Performing Lab: [facility] [address] CREATININE 0.8 mg/dL 0.7-1.2 UREA NITROGEN 13 mg/dL 8-26 GLUCOSE 135 mg/dL H 70-100 SODIUM 135 mmol/L L 136-145 POTASSIUM 3.6 mmol/L 3.5-5.1 CHLORIDE 103 mmol/L 98-107 CO2 24 mmol/L 22-29 CALCIUM 9.2 mg/dL 8.4-10.2 MAGNESIUM 1.9 mg/dL 1.6-2.6 ANION GAP 8 mmol/L 5-15 .CREAT EGFR(CKD-EPI) >90 >60 Jun 24, 2024 09:50 AM [facility] CBC Specimen Type: BLOOD Comment: Specimen received in Lab at: 0948 Ordering Provider: JEVON ZAZUETA Report Released Date/Time: Jun 23, 2024 06:07 PM Reporting Lab: [facility] [address] Performing Lab: [facility] [address] WBC 15.5 H 4.0-11.0 RBC 4.93 4.60-6.20 HGB 15.2 g/dL 13.5-17.9 HCT 46.5 41.0-54.0 MCV 94.3 fL 80.0-100.0 MCH 30.8 pg 27.0-33.0 MCHC 32.7 g/dL 32.0-37.5 PLT 223 150-400 MPV 11.4 fL 9.1-13.0 RDW 13.9 11.5-14.5 Jun 23, 2024 07:52 AM [facility] COMPREHENSIVE METABOLIC PANEL+MG Specimen Type: PLASMA No comment entered. Ordering Provider: JEVON ZAZUETA Report Released Date/Time: Jun 22, 2024 05:51 PM Reporting Lab: [facility] [address] Performing Lab: [facility] [address] CREATININE 0.7 mg/dL 0.7-1.2 UREA NITROGEN 16 [...] >90 >60 Jun 23, 2024 07:52 AM [facility] CBC & DIFF Specimen Type: BLOOD Comment: Automated Differential Performed Ordering Provider: JEVON ZAZUETA Report Released Date/Time: Jun 22, 2024 05:51 PM Reporting Lab: [facility] [address] Performing Lab: [facility] [address] WBC 14.9 H 4.0-11.0 RBC 5.09 4.60-6.20 [...] 0.1 0.0-0.1 Jun 22, 2024 06:10 PM [facility] COMPREHENSIVE METABOLIC PANEL+MG Specimen Type: PLASMA No comment entered. Ordering Provider: JEVON ZAZUETA Report Released Date/Time: Jun 22, 2024 05:51 PM Reporting Lab: [facility] [address] Performing Lab: [facility] [address] CREATININE 0.7 mg/dL 0.7-1.2 UREA NITROGEN 17 [...] >90 >60 Jun 22, 2024 06:10 PM [facility] CBC Specimen Type: BLOOD No comment entered. Ordering Provider: JEVON ZAZUETA Report Released Date/Time: Jun 22, 2024 05:51 PM Reporting Lab: [facility] [address] Performing Lab: [facility] [address] WBC 16.9 H 4.0-11.0 RBC 5.28 4.60-6.20 HGB 16.9 g/dL 13.5-17.9 HCT 50.4 41.0-54.0 MCV 95.5 fL 80.0-100.0 MCH 32.0 pg 27.0-33.0 MCHC 33.5 g/dL 32.0-37.5 PLT 223 150-400 MPV 10.9 fL 9.1-13.0 RDW 14.0 11.5-14.5 Jun 21, 2024 06:48 PM [facility] URINALYSIS Specimen Type: URINE No comment entered. Ordering Provider: DELIA MARTINEZ Report Released Date/Time: Jun 21, 2024 05:45 PM Reporting Lab: [facility] [address] Performing Lab: [facility] [address] URINE COLOR YELLOW SPECIFIC GRAVITY 1.041 H [...] 500 NEGATIVE Jun 21, 2024 05:34 PM [facility] POC CREATININE Specimen Type: BLOOD No comment entered. Ordering Provider: DELIA MARTINEZ Report Released Date/Time: Jun 21, 2024 06:07 PM Reporting Lab: [facility] [address] Performing Lab: [facility] [address] POC CREATININE 1.1 mg/dL 0.6-1.3 Jun 21, 2024 05:30 PM [facility] POC ABG/LACTATE Specimen Type: VENOUS BLOOD No comment entered. Ordering Provider: DELIA MARTINEZ Report Released Date/Time: Jun 21, 2024 06:07 PM Reporting Lab: [facility] [address] Performing Lab: [facility] [address] POC PH 7.470 H 7.31-7.41 POC PCO2 31.2 mm[Hg] L 41.00-51 .0 0 POC PO2 46 mm[Hg] H 35.0-40.0 POC TCO2 24 mmol/L 24.0-29.0 POC HCO3 22.7 mmol/L L 23.0-28.0 POC BE ECT -1 mmol/L POC SO2 85 H 70-75 POC LACTATE 1.85 mmol/L 0.90-1.70 Jun 21, 2024 05:24 PM [facility] PROTHROMBIN TIME/INR Specimen Type: PLASMA No comment entered. Ordering Provider: DELIA MARTINEZ Report Released Date/Time: Jun 21, 2024 05:30 PM Reporting Lab: [facility] [address] Performing Lab: [facility] [address] .INR 1.2 H 0.8-1.1 .PT 13.9 s H 9.4-12.5 Jun 21, 2024 05:24 PM [facility] LIPASE Specimen Type: PLASMA No comment entered. Ordering Provider: DELIA MARTINEZ Report Released Date/Time: Jun 21, 2024 05:30 PM Reporting Lab: [facility] [address] Performing Lab: [facility] [address] LIPASE 32 U/L <60 Jun 21, 2024 05:24 PM [facility] EXTRA GOLD GEL TUBE Specimen Type: SERUM No comment entered. Ordering Provider: DELIA MARTINEZ Report Released Date/Time: Jun 21, 2024 05:41 PM Reporting Lab: [facility] [phone] Performing Lab: [facility] [address] EXTRA GOLD GEL TUBE RECEIVED Jun 21, 2024 05:24 PM [facility] COMPREHENSIVE METABOLIC PANEL+MG Specimen Type: PLASMA No comment entered. Ordering Provider: DELIA MARTINEZ Report Released Date/Time: Jun 21, 2024 05:30 PM Reporting Lab: [facility] [address] Performing Lab: [facility] [address] CREATININE 0.9 mg/dL 0.7-1.2 UREA NITROGEN 29 [...] mg/dL <0.5 Jun 21, 2024 05:24 PM [facility] CBC & DIFF Specimen Type: BLOOD Comment: Manual Differential Performed Ordering Provider: DELIA MARTINEZ Report Released Date/Time: Jun 21, 2024 05:30 PM Reporting Lab: [facility] [address] Performing Lab: [facility] [address] WBC 21.3 H 4.0-11.0 RBC 5.48 4.60-6.20 [...] MORPHOLOGY PRESENT Jun 08, 2024 10:59 AM [facility] PROTHROMBIN TIME/INR Specimen Type: PLASMA No comment entered. Ordering Provider: MARYBETH POWELL Report Released Date/Time: May 28, 2024 09:02 AM Reporting Lab: [facility] [address] Performing Lab: [facility] [address] .INR 1.0 0.8-1.1 .PT 11.8 s 9.4-12.5 Jun 08, 2024 10:59 AM [facility] HEMOGLOBIN A1C Specimen Type: BLOOD Comment: [...] AM Reporting Lab: [facility] [address] Performing Lab: [facility] [address] HEMOGLOBIN A1C 4.9 4.0-6.0 Jun 08, 2024 10:59 AM [facility] CBC Specimen Type: BLOOD No comment entered. Ordering Provider: MARYBETH POWELL Report Released Date/Time: May 28, 2024 09:02 AM Reporting Lab: [facility] [address] Performing Lab: [facility] [address] WBC 16.1 H 4.0-11.0 RBC 5.02 4.60-6.20 HGB 16.0 g/dL 13.5-17.9 HCT 47.1 41.0-54.0 MCV 93.8 fL 80.0-100.0 MCH 31.9 pg 27.0-33.0 MCHC 34.0 g/dL 32.0-37.5 PLT 228 150-400 MPV 10.3 fL 9.1-13.0 RDW 14.6 H 11.5-14.5 Jun 08, 2024 10:59 AM [facility] BASIC METABOLIC PANEL+MG Specimen Type: PLASMA No comment entered. Ordering Provider: MARYBETH POWELL Report Released Date/Time: May 28, 2024 09:02 AM Reporting Lab: [facility] [phone] Performing Lab: [facility] [address] CREATININE 0.9 mg/dL 0.7-1.2 UREA NITROGEN 15 [...] Source Jun 25, 2024 01:51 AM [facility] Social History: Smoking Status (Most current) and [...] ity May 15, 2024 08:30 AM AR-TOBACCO QUIT 15 YRS OR MORE [facility] 15 YRS OR MORE [facility] May 06, 2023 11:30 AM VA-TOBACCO FORMER USER [facility] May 06, 2023 11:30 AM VA-TOBACCO [...] VIEWS PA A ND LAT: FLACA WEAVER [id number] -1950 M Exm Date: JUL 08, 2024@10:09 Req Phys: KATELYNN PERSON Pat Loc: 2K07-08-2024@11:49 Img Loc: MAIN X-RAY Service: [place] [address] (Case 24 COMPLETE) CHEST 2 VIEWS PA AND LAT (RAD Detailed) CPT:92908 Reason for Study: Uptrending WBC, POD 5 Clinical History: [place] IS NOT under investigation for COVID-19 or is COVID-19 negative POD 5, work up for uptrending wbc Responsible provider name and phone number to notify for critical findings if other than user placing the order and pager listed below: User placing orders pager: Katelynn Person LAST CREATININE 0.9 (07/07/24) Report Status: Verified Date Reported: JUL 08, 2024 Date Verified: JUL 08, 2024 [employer] E-Sig: Report: CHEST 2 VIEWS PA AND [...] cardiopulmonary disease. READING PHYSICIAN: Sarbjit Vaughn M.D. -[phone] 07/08/2024 12:46 [facility] National Teleradiology Program [phone] (For Medical Practitioner Use Only) Attention Patients / Veterans: If you have questions or concerns about these test results, please contact your ordering provider or primary care team. Primary Interpreting Staff: RADIOLOGY,OUTSIDE SERVICE, Staff Physician / RADIOLOGY,OUTSIDE SERVICE [facility] Jul 08, 2024 10:[address] (AP) ABDOMEN/PE LVIS W CONTRAST: FLACA WEAVER [id number] -1950 M Exm Date: JUL 08, 2024@10:00 Req Phys: KATELYNN PERSON Loc: 2K07-08-2024@12:07 Img Loc: CT IMAGING Service: [place] [address] (Case 22 COMPLETE) CT (AP) ABDOMEN/PELVIS W CONTRAST(CT Detailed) CPT:07723 Contrast Media : Non-ionic Iodinated Reason for [...] PLASMA .CREAT EGFR(CKD-E >90 Ref: >=60 Allergies: ([place] only) TERAZOSIN (Mar 13, 2015) Report Status: Verified Date Reported: JUL 08, 2024 Date Verified: JUL 08, 2024 [employer] E-Sig: Report: CT (AP) ABDOMEN/PELVIS W CONTRAST [...] as noted above READING PHYSICIAN: Celestino Blanc -[phone] 07/08/2024 13:04 [facility] [employer] Teleradiology Program [phone] (For Medical Practitioner Use Only) Attention Patients / Veterans: If you have questions or concerns about these test results, please contact your ordering provider or primary care team. Primary Interpreting Staff: RADIOLOGY,OUTSIDE SERVICE, Staff Physician / RADIOLOGY,OUTSIDE SERVICE [facility] Jun 22, 2024 11:49 AM ABSCESS DRAIN PLAC EMENT PERITONEAL (P): FLACA WEAVER [id number] -1950 M Exm Date: JUN 22, 2024@11:49 Req Phys: ANGELA HOLDEN Loc: [facility]06-22-2024@17:14 Img Loc: INTERVENTIONAL RADIOLOGY Service: [place] [address] (Case [id number] COMPLETE) IR PERITONEAL/RETROPERITONEAL PER(ANI Detailed) CPT:67089 Reason for Study: diverticulitis with abscess (Case 3570 COMPLETE) IR MOD SEDATION 10-22 MIN (ANI Detailed) CPT:68220 Clinical History: [place] IS NOT under investigation for COVID-19 or is COVID-19 negative 73 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 please place abscess drain. Contact number for responsible provider who can be reached for any questions or notifications of critical findings: [phone] n/a LAST CREATININE 0.9 (06/21/24) Report Status: Verified Date Reported: JUN 22, 2024 Date Verified: JUN 22, 2024 [employer] E-Sig:/ES/LISA PENDLETON MD Report: PROCEDURES: Placement of [...] Using real-time CT fluoroscopy, a 5 Turkmen 7-bites centesis catheter was advanced into the collection in the left pelvis. A wire was coiled in the collection. The tract into the collection was dilated to accommodate the 12 Turkmen locking pigtail drainage catheter. There was return [...] Primary Interpreting Staff: LISA PENDLETON MD, RADIOLOGIST ([employer]) /LISA CARDONA [facility] Jun 22, 2024 11:[address] NEEDLE PLACEMEN T (P): FLACA WEAVER [id number] -1950 M Exm Date: JUN 22, 2024@11:48 Req Phys: ANGELA HOLDEN Loc: [facility]/06-22-2024@17:14 Im Loc: CT IMAGING Service: [place] [address] (Case [id number] COMPLETE) CT SCAN FOR NEEDLE PLACEMENT (CT Detailed) CPT:39226 Reason for Study: l pelvic abscess drain Clinical History: Report Status: Verified Date Reported: JUN 22, 2024 Date Verified: JUN 22, 2024 [employer] E-Sig:/ES/LISA PENDLETON MD Report: PROCEDURES: Placement of [...] Using real-time CT fluoroscopy, a 5 Turkmen Amigo da Culturaesis catheter was advanced into the collection in the left pelvis. A wire was coiled in the collection. The tract into the collection was dilated to accommodate the 12 Turkmen locking pigtail drainage catheter. There was return [...] Primary Interpreting Staff: LISA PENDLETON MD, RADIOLOGIST ([employer] Reseller) /JRT LISA PENDLETON [facility] Jun 21, 2024 06:[address] (AP) ABDOMEN/PE LVIS (P): FLACA WEAVER [id number] -1950 M Exm Date: JUN 21, 2024@18:09 Req Phys: DELIA MARTINEZ Loc: [facility] EMERGENCY DEPT WALK-IN (Re Img Loc: CT IMAGING Service: [place] [address] (Case [id number] COMPLETE) CT (AP) ABDOMEN/PELVIS W CONTRAST(CT Detailed) CPT:48315 Contrast Media : Non-ionic Iodinated Reason for [...] PLASMA .CREAT EGFR(CKD-E >90 Ref: >=60 Allergies: ([place] only) TERAZOSIN (Mar 13, 2015) Defer to [...] 21, 2024 Date Verified: JUN 21, 2024 [employer] E-Sig:/ALEXI/CARLOS A CUNNINGHAM DO Report: EXAMINATION: CT [...] Interpreting Staff: CARLOS A CUNNINGHAM DO, RADIOLOGIST ([employer] Reseller) /CARLOS A ROWELL [facility] Pathology Reports: +/- 30 days of [...] COSIGNER: URGENCY: STATUS: COMPLETED $APHDR Reporting Lab: [facility] [CLIA# [id number]] [place] [address] - - - - - - - [...] - PATHOLOGY REPORT Accession No. [id number] - - - - - - - [...] - PATHOLOGY REPORT Accession No. [id number] - - - - - - - [...] Second circumferential surgical margin, en face; E-F: Dinkey Mechanic diverticula; G: Dinkey Mechanic section of mesentery; H: Random bilingual inside sales representative section of additional adipose [...] Performing Laboratory: Surgical Pathology Report Performed By: [facility] [CLIA# [id number]] [place] [address] $FTR - - - - - - [...] - - FLACA WEAVER STANDARD FORM 515 ID:[id number] SEX:M :1950 AGE: 73 LOC:38159 ADM:Jun DX:DIVERTICULITIS PCP: Jatinder Cabrera /alexi/ EDUARDO PALOMARES MD STAFF PATHOLOGIST Signed: 07/06/2024 10:40 EDUARDO PALOMARES [facility] Jun 22, 2024 01:15 PM LR MICROBIOLOGY RE PORT: Reporting Lab: [facility] [CLIA# [id number]] [place] [address] Accession [UID]: [id number] [[id number]] Received: Jun 22, 2024@13:38 Collection sample: FLUID Collection date: Jun 22, 2024 13:15 Provider: ANGELA HOLDEN Comment on specimen: LLQ ABSCESS, RECEIVED IN ANAEROBIC TRANSPORT VIAL Test(s) ordered: GRAM STAIN.................... completed: Jun 22, 2024 15:03 CULTURE & SUSCEPTIBILITY...... completed: Jun 25, 2024 * BACTERIOLOGY FINAL REPORT => Jun 25, 2024 10:56 TECH CODE: [id number] GRAM STAIN: DIRECT SMEAR of specimen before [...] -=--=--=--=--=--=--=-- Performing Laboratory: Bacteriology Report Performed By: [facility] [CLIA# [id number]] [place] [address] [facility] Jun 22, 2024 01:15 PM LR MICROBIOLOGY RE PORT: Reporting Lab: [facility] [CLIA# [id number]] [place] [address] Accession [UID]: [id number] [[id number]] Received: Jun 22, 2024@13:38 Collection sample: FLUID Collection date: Jun 22, 2024 13:15 Provider: ANGELA HOLDEN Comment on specimen: LLQ ABSCESS, RECEIVED IN ANAEROBIC TRANSPORT VIAL Test(s) ordered: ANAEROBIC CULTURE............. completed: Jun 28, 2024 * BACTERIOLOGY FINAL REPORT => Jun 28, 2024 10:08 TECH CODE: [id number] CULTURE RESULTS: HEAVY GROWTH MIXED ANAEROBES Comment: including the followin+ Bacteroides fragilis 4+ Bacteroides vulgatus 4+ Clostridium innocuum Beta-lactamase negative 4+ Bacteroides caccae 4+ Parvimonas micra 4+ Bacteroides uniformis 4+ Gemella morbillorum 4+ anaerobic small, Gram Positive Rods 4+ Bacteroides thetaiotaomicron Standard workup is now complete. Bacteriology Remark(s): THIS REPORT IS FINAL =--=--=--=--=--=--=--=--=--= --=--=--=--=--=--=--=--=--=- -=--=--=--=--=--=--=-- Performing Laboratory: Bacteriology Report Performed By: [facility] [CLIA# [id number]] [place] [address] [facility] Jun 21, 2024 06:12 PM LR MICROBIOLOGY RE PORT: Reporting Lab: [facility] [CLIA# [id number]] [place] [address] Accession [UID]: [id number] [[id number]] Received: Jun 21, 2024@18:12 Collection sample: BLOOD [...] -=--=--=--=--=--=--=-- Performing Laboratory: Bacteriology Report Performed By: [facility] [CLIA# [id number]] [place] [address] [facility] Jun 21, 2024 06:11 PM LR MICROBIOLOGY RE PORT: Reporting Lab: [facility] [CLIA# [id number]] [place] [address] Accession [UID]: [id number] [[id number]] Received: Jun 21, 2024@18:11 Collection sample: BLOOD [...] -=--=--=--=--=--=--=-- Performing Laboratory: Bacteriology Report Performed By: [facility] [CLIA# [id number]] [place] [address] [facility] Jun 08, 2024 11:00 AM LR MICROBIOLOGY RE PORT: Reporting Lab: [facility] [CLIA# [id number]] [place] [address] Accession [UID]: [id number] [[id number]] Received: Jun 08, 2024@11:00 Collection sample: URINE Collection date: Jun 08, 2024 11:00 Provider: MARYBETH POWELL Comment on specimen: urine Test(s) ordered: CULTURE & SUSCEPTIBILITY...... completed: Jun 09, 2024 * BACTERIOLOGY FINAL REPORT => Jun 09, 2024 19:12 TECH CODE: [id number] CULTURE RESULTS: ESCHERICHIA COLI - Quantity: >100,000 [...] -=--=--=--=--=--=--=-- Performing Laboratory: Bacteriology Report Performed By: [facility] [CLIA# [id number]] [place] [address] [facility]
--- OUTSIDE RECORDS SUMMARY | 2024-07-16 07:35 | XMS_ITS ---
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 Date/Time Encounter Type Encounter Description Reason Pro vider Source Jun 24, 2024 04:33 PM Inpatient Visit DAILY HOSPITALIZATION DATA [facility] Encounter Template Text not used by [place] [...] 2024 07:00 AM AMBULATORY - NONE [facility] Jun 27, 2024 07:30 AM [facility] Jun 27, 2024 08:00 AM AMBULATORY - MEDICINE [facility] Jul 03, 2024 05:55 AM AMBULATORY - NONE [facility] Jul 13, 2024 08:15 AM AMBULATORY - NONE [facility] Active, Pending, and Scheduled Orders This section includes a listing of several types of active, pending, and scheduled orders, including clinic medications orders, diagnostic test orders, procedure orders and consult orders; where the start date of the order is 45 days before the date of the Encounter or 45 days after the date of theEncounter. The data comes from all [facility] facilities. Test Date/Time Test Type Test Details Facility Name May 28, 2024 12:00 AM Laboratory - Blood Bank Order TYPE & SCREEN - LAB BLOOD SP [facility] Jun 08, 2024 09:57 AM Laboratory - Chemi stry Order URINALYSIS URINE WC ONCE [facility] Jun 12, 2024 12:00 AM Laboratory - Chemi stry Order BNP PLASMA SP ONCE [facility] Jun 21, 2024 05:45 PM Laboratory - Blood Bank Order TYPE & SCREEN - LAB BLOOD [facility] Jul 03, 2024 12:00 AM Laboratory - Blood Bank Order TYPE & SCREEN - LAB BLOOD [facility] Jul 16, 2024 12:00 AM Laboratory - Chemi stry Order CBC BLOOD SP ONCE [facility] Jul 17, 2024 12:00 AM Laboratory - Chemi stry Order BASIC METABOLIC PANEL+MG PLASMA SP ONCE [facility] Lab Results: +/- 30 days [...] Range Comment Jul 10, 2024 07:16 AM [facility] PHOSPHORUS Specimen Type: PLASMA No comment entered. Ordering Provider: JUANCARLOS ECHOLS Report Released Date/Time: Jul 09, 2024 12:23 PM Reporting Lab: [facility] [address] Performing Lab: [facility] [address] PHOSPHORUS 3.0 mg/dL 2.3-4.3 Jul 10, 2024 07:16 AM [facility] BASIC METABOLIC PANEL+MG Specimen Type: PLASMA No comment entered. Ordering Provider: JUANCARLOS ECHOLS Report Released Date/Time: Jul 09, 2024 12:23 PM Reporting Lab: [facility] [address] Performing Lab: [facility] [address] CREATININE 0.7 mg/dL 0.7-1.2 UREA NITROGEN 27 mg/dL H 8-26 GLUCOSE 104 mg/dL H 70-100 SODIUM 133 mmol/L L 136-145 POTASSIUM 4.3 mmol/L 3.5-5.1 CHLORIDE 102 mmol/L 98-107 CO2 19 mmol/L L 22-29 CALCIUM 10.1 mg/dL 8.4-10.2 MAGNESIUM 1.9 mg/dL 1.6-2.6 ANION GAP 12 mmol/L 5-15 .CREAT EGFR(CKD-EPI) >90 >60 Jul 10, 2024 07:15 AM [facility] CBC Specimen Type: BLOOD No comment entered. Ordering Provider: JUANCARLOS ECHOLS S Report Released Date/Time: Jul 09, 2024 12:23 PM Reporting Lab: [facility] [phone] Performing Lab: [facility] [address] WBC 18.8 H 4.0-11.0 RBC 5.08 4.60-6.20 HGB 15.9 g/dL 13.5-17.9 HCT 46.8 41.0-54.0 MCV 92.1 fL 80.0-100.0 MCH 31.3 pg 27.0-33.0 MCHC 34.0 g/dL 32.0-37.5 PLT 479 H 150-400 MPV 10.2 fL 9.1-13.0 RDW 13.7 11.5-14.5 Jul 09, 2024 07:08 AM [facility] CBC Specimen Type: BLOOD No comment entered. Ordering Provider: QUYNH WEISS AV Report Released Date/Time: Jul 08, 2024 06:18 PM Reporting Lab: [facility] [address] Performing Lab: [facility] [address] WBC 15.3 H 4.0-11.0 RBC 4.91 4.60-6.20 HGB 15.1 g/dL 13.5-17.9 HCT 45.7 41.0-54.0 MCV 93.1 fL 80.0-100.0 MCH 30.8 pg 27.0-33.0 MCHC 33.0 g/dL 32.0-37.5 PLT 443 H 150-400 MPV 10.0 fL 9.1-13.0 RDW 13.5 11.5-14.5 Jul 08, 2024 10:50 AM [facility] URINALYSIS Specimen Type: URINE No comment entered. Ordering Provider: KATELYNN PERSON Report Released Date/Time: Jul 08, 2024 08:41 AM Reporting Lab: [facility] [address] Performing Lab: [facility] [address] URINE COLOR YELLOW SPECIFIC GRAVITY >1.050 H [...] NEGATIVE NEGATIVE Jul 08, 2024 09:54 AM [facility] CBC Specimen Type: BLOOD Comment: Specimen received in Lab at: 0952 Ordering Provider: JUANCARLOS ECHOLS Report Released Date/Time: Jul 07, 2024 04:49 PM Reporting Lab: [facility] [address] Performing Lab: [facility] [address] WBC 17.5 H 4.0-11.0 RBC 4.88 4.60-6.20 HGB 14.9 g/dL 13.5-17.9 HCT 45.7 41.0-54.0 MCV 93.6 fL 80.0-100.0 MCH 30.5 pg 27.0-33.0 MCHC 32.6 g/dL 32.0-37.5 PLT 472 H 150-400 MPV 10.2 fL 9.1-13.0 RDW 13.7 11.5-14.5 Jul 08, 2024 09:54 AM [facility] PHOSPHORUS Specimen Type: PLASMA Comment: Specimen received in Lab at: 0952 Ordering Provider: JUANCARLOS ECHOLS Report Released Date/Time: Jul 07, 2024 04:49 PM Reporting Lab: [facility] [address] Performing Lab: [facility] [address] PHOSPHORUS 2.6 mg/dL 2.3-4.3 Jul 08, 2024 09:54 AM [facility] BASIC METABOLIC PANEL+MG Specimen Type: PLASMA Comment: Specimen received in Lab at: 0952 Ordering Provider: JUANCARLOS ECHOLS Report Released Date/Time: Jul 07, 2024 04:49 PM Reporting Lab: [facility] [address] Performing Lab: [facility] [address] CREATININE 0.9 mg/dL 0.7-1.2 UREA NITROGEN 26 mg/dL 8-26 GLUCOSE 128 mg/dL H 70-100 SODIUM 134 mmol/L L 136-145 POTASSIUM 3.4 mmol/L L 3.5-5.1 CHLORIDE 100 mmol/L 98-107 CO2 24 mmol/L 22-29 CALCIUM 9.8 mg/dL 8.4-10.2 MAGNESIUM 1.8 mg/dL 1.6-2.6 ANION GAP 10 mmol/L 5-15 .CREAT EGFR(CKD-EPI) >90 >60 Jul 07, 2024 02:00 PM [facility] C DIFF PANEL Specimen Type: FECES No comment entered. Ordering Provider: JEVON ZAZUETA Report Released Date/Time: Jul 07, 2024 12:26 PM Reporting Lab: [facility] [address] Performing Lab: [facility] [address] C DIFF TOX B GENE PCR NEGATIVE Negative Jul 07, 2024 07:41 AM [facility] PHOSPHORUS Specimen Type: PLASMA No comment entered. Ordering Provider: JEVON ZAZUETA Report Released Date/Time: Jul 06, 2024 03:44 PM Reporting Lab: [facility] [address] Performing Lab: [facility] [address] PHOSPHORUS 3.1 mg/dL 2.3-4.3 Jul 07, 2024 07:41 AM [facility] BASIC METABOLIC PANEL+MG Specimen Type: PLASMA No comment entered. Ordering Provider: JEVON ZAZUETA Report Released Date/Time: Jul 06, 2024 03:44 PM Reporting Lab: [facility] [address] Performing Lab: [facility] [address] CREATININE 0.9 mg/dL 0.7-1.2 UREA NITROGEN 20 mg/dL 8-26 GLUCOSE 157 mg/dL H 70-100 SODIUM 136 mmol/L 136-145 POTASSIUM 3.7 mmol/L 3.5-5.1 CHLORIDE 102 mmol/L 98-107 CO2 21 mmol/L L 22-29 CALCIUM 9.8 mg/dL 8.4-10.2 MAGNESIUM 1.9 mg/dL 1.6-2.6 ANION GAP 13 mmol/L 5-15 .CREAT EGFR(CKD-EPI) >90 >60 Jul 07, 2024 07:40 AM [facility] CBC Specimen Type: BLOOD No comment entered. Ordering Provider: JEVON ZAZUETA Report Released Date/Time: Jul 06, 2024 03:44 PM Reporting Lab: [facility] [phone] Performing Lab: [facility] [address] WBC 21.2 H 4.0-11.0 RBC 5.09 4.60-6.20 HGB 15.9 g/dL 13.5-17.9 HCT 48.3 41.0-54.0 MCV 94.9 fL 80.0-100.0 MCH 31.2 pg 27.0-33.0 MCHC 32.9 g/dL 32.0-37.5 PLT 500 H 150-400 MPV 10.3 fL 9.1-13.0 RDW 13.6 11.5-14.5 Jul 06, 2024 07:21 AM [facility] CBC Specimen Type: BLOOD No comment entered. Ordering Provider: JEVON ZAZUETA Report Released Date/Time: Jul 05, 2024 01:22 PM Reporting Lab: [facility] [address] Performing Lab: [facility] [address] WBC 18.0 H 4.0-11.0 RBC 4.83 4.60-6.20 HGB 14.6 g/dL 13.5-17.9 HCT 45.5 41.0-54.0 MCV 94.2 fL 80.0-100.0 MCH 30.2 pg 27.0-33.0 MCHC 32.1 g/dL 32.0-37.5 PLT 368 150-400 MPV 10.4 fL 9.1-13.0 RDW 13.6 11.5-14.5 Jul 06, 2024 07:21 AM [facility] PHOSPHORUS Specimen Type: PLASMA No comment entered. Ordering Provider: JEVON ZAZUETA Report Released Date/Time: Jul 05, 2024 01:22 PM Reporting Lab: [facility] [address] Performing Lab: [facility] [address] PHOSPHORUS 3.6 mg/dL 2.3-4.3 Jul 06, 2024 07:21 AM [facility] BASIC METABOLIC PANEL+MG Specimen Type: PLASMA No comment entered. Ordering Provider: JEVON ZAZUETA Report Released Date/Time: Jul 05, 2024 01:22 PM Reporting Lab: [facility] [address] Performing Lab: [facility] [address] CREATININE 0.7 mg/dL 0.7-1.2 UREA NITROGEN 12 mg/dL 8-26 GLUCOSE 108 mg/dL H 70-100 SODIUM 138 mmol/L 136-145 POTASSIUM 3.4 mmol/L L 3.5-5.1 CHLORIDE 104 mmol/L 98-107 CO2 20 mmol/L L 22-29 CALCIUM 9.3 mg/dL 8.4-10.2 MAGNESIUM 1.9 mg/dL 1.6-2.6 ANION GAP 14 mmol/L 5-15 .CREAT EGFR(CKD-EPI) >90 >60 Jul 05, 2024 07:17 AM [facility] MAGNESIUM Specimen Type: PLASMA No comment entered. Ordering Provider: JUANCARLOS ECHOLS Report Released Date/Time: Jul 04, 2024 09:39 AM Reporting Lab: [facility] [address] Performing Lab: [facility] [address] MAGNESIUM 2.0 mg/dL 1.6-2.6 Jul 05, 2024 07:17 AM [facility] PHOSPHORUS Specimen Type: PLASMA No comment entered. Ordering Provider: JUANCARLOS ECHOLS S Report Released Date/Time: Jul 04, 2024 09:39 AM Reporting Lab: [facility] [address] Performing Lab: [facility] [address] PHOSPHORUS 2.0 mg/dL L 2.3-4.3 Jul 05, 2024 07:17 AM [facility] BASIC METABOLIC PANEL+MG Specimen Type: PLASMA No comment entered. Ordering Provider: JUANCARLOS ECHOLS S Report Released Date/Time: Jul 04, 2024 09:39 AM Reporting Lab: [facility] [address] Performing Lab: [facility] [address] CREATININE 0.7 mg/dL 0.7-1.2 UREA NITROGEN 12 mg/dL 8-26 GLUCOSE 84 mg/dL 70-100 SODIUM 135 mmol/L L 136-145 POTASSIUM 3.8 mmol/L 3.5-5.1 CHLORIDE 104 mmol/L 98-107 CO2 24 mmol/L 22-29 CALCIUM 9.3 mg/dL 8.4-10.2 MAGNESIUM 2.0 mg/dL 1.6-2.6 ANION GAP 7 mmol/L 5-15 .CREAT EGFR(CKD-EPI) >90 >60 Jul 05, 2024 07:16 AM [facility] CBC Specimen Type: BLOOD No comment entered. Ordering Provider: JUANCARLOS ECHOLS S Report Released Date/Time: Jul 04, 2024 09:39 AM Reporting Lab: [facility] [address] Performing Lab: [facility] [address] WBC 18.3 H 4.0-11.0 RBC 4.49 L 4.60-6.20 HGB 14.1 g/dL 13.5-17.9 HCT 43.4 41.0-54.0 MCV 96.7 fL 80.0-100.0 MCH 31.4 pg 27.0-33.0 MCHC 32.5 g/dL 32.0-37.5 PLT 317 150-400 MPV 10.0 fL 9.1-13.0 RDW 13.9 11.5-14.5 Jul 04, 2024 07:17 AM [facility] BASIC METABOLIC PANEL+MG Specimen Type: PLASMA No comment entered. Ordering Provider: GABINO CAMERON Report Released Date/Time: Jul 03, 2024 06:31 PM Reporting Lab: [facility] [address] Performing Lab: [facility] [address] CREATININE 0.7 mg/dL 0.7-1.2 UREA NITROGEN 16 mg/dL 8-26 GLUCOSE 129 mg/dL H 70-100 SODIUM 137 mmol/L 136-145 POTASSIUM 3.7 mmol/L 3.5-5.1 CHLORIDE 107 mmol/L 98-107 CO2 22 mmol/L 22-29 CALCIUM 9.0 mg/dL 8.4-10.2 MAGNESIUM 1.9 mg/dL 1.6-2.6 ANION GAP 8 mmol/L 5-15 .CREAT EGFR(CKD-EPI) >90 >60 Jul 04, 2024 07:17 AM [facility] PHOSPHORUS Specimen Type: PLASMA No comment entered. Ordering Provider: GABINO CAMERON Report Released Date/Time: Jul 03, 2024 06:31 PM Reporting Lab: [facility] [phone] Performing Lab: [facility] [address] PHOSPHORUS 2.8 mg/dL 2.3-4.3 Jul 04, 2024 07:16 AM [facility] CBC Specimen Type: BLOOD No comment entered. Ordering Provider: GABINO CAMERON Report Released Date/Time: Jul 03, 2024 06:31 PM Reporting Lab: [facility] [address] Performing Lab: [facility] [address] WBC 20.6 H 4.0-11.0 RBC 4.63 4.60-6.20 HGB 14.2 g/dL 13.5-17.9 HCT 43.4 41.0-54.0 MCV 93.7 fL 80.0-100.0 MCH 30.7 pg 27.0-33.0 MCHC 32.7 g/dL 32.0-37.5 PLT 329 150-400 MPV 10.4 fL 9.1-13.0 RDW 13.8 11.5-14.5 Jul 04, 2024 07:16 AM [facility] CBC & DIFF Specimen Type: BLOOD Comment: Manual Differential Performed Ordering Provider: GABINO CAMERON Report Released Date/Time: Jul 03, 2024 06:31 PM Reporting Lab: [facility] [address] Performing Lab: [facility] [address] WBC 20.6 H 4.0-11.0 RBC 4.63 4.60-6.20 [...] MORPHOLOGY PRESENT Jul 04, 2024 07:15 AM [facility] BNP Specimen Type: PLASMA No comment entered. Ordering Provider: GABINO CAMERON Report Released Date/Time: Jul 03, 2024 06:31 PM Reporting Lab: [facility] [address] Performing Lab: [facility] [address] BNP 292 pg/mL H <99 Jul 03, 2024 10:32 PM [facility] FINGERSTICK GLUCOSE Specimen Type: BLOOD Comment: Save Result Nurse Notified Ordering Provider: KATELYNN PERSON Report Released Date/Time: Jul 03, 2024 10:50 PM Reporting Lab: [facility] [address] Performing Lab: [facility] [address] FINGERSTICK GLUCOSE 126 mg/dL H 70-100 Jul 03, 2024 05:33 PM [facility] FINGERSTICK GLUCOSE Specimen Type: BLOOD Comment: Save Result Nurse Notified Ordering Provider: KATELYNN PERSON Report Released Date/Time: Jul 03, 2024 05:46 PM Reporting Lab: [facility] [address] Performing Lab: [facility] [address] FINGERSTICK GLUCOSE 141 mg/dL H 70-100 Jul 03, 2024 02:31 PM [facility] POC ABG/ELECTROLYTES Specimen Type: ARTERIAL BLOOD Comment: FIO2 = 97% Patient Temp: 36.0 C Sample Type = ARTERIAL Ordering Provider: MAZIN ARREDONDO Report Released Date/Time: Jul 03, 2024 01:48 PM Reporting Lab: [facility] [address] Performing Lab: [facility] [address] POC PH 7.387 7.35-7.45 POC PCO2 34.4 [...] H 80.0-105.0 Jul 03, 2024 01:05 PM [facility] POC ABG/ELECTROLYTES Specimen Type: ARTERIAL BLOOD Comment: FIO2 = 53% Patient Temp: 36.2 C Sample Type = ARTERIAL Ordering Provider: MAZIN ARREDONDO Report Released Date/Time: Jul 03, 2024 01:48 PM Reporting Lab: [facility] [address] Performing Lab: [facility] [address] POC PH 7.280 L 7.35-7.45 POC PCO2 [...] mm[Hg] 80.0-105.0 Jul 03, 2024 06:15 AM [facility] URINALYSIS Specimen Type: URINE No comment entered. Ordering Provider: MARYBETH POWELL Report Released Date/Time: Jun 12, 2024 04:01 PM Reporting Lab: [facility] [address] Performing Lab: [facility] [address] URINE COLOR YELLOW SPECIFIC GRAVITY 1.031 1.003-1.03 [...] 250 NEGATIVE Jul 03, 2024 06:13 AM [facility] CBC Specimen Type: BLOOD No comment entered. Ordering Provider: MARYBETH POWELL Report Released Date/Time: Jun 12, 2024 03:59 PM Reporting Lab: [facility] [address] Performing Lab: [facility] [address] WBC 15.8 H 4.0-11.0 RBC 5.11 4.60-6.20 HGB 16.1 g/dL 13.5-17.9 HCT 49.1 41.0-54.0 MCV 96.1 fL 80.0-100.0 MCH 31.5 pg 27.0-33.0 MCHC 32.8 g/dL 32.0-37.5 PLT 357 150-400 MPV 9.8 fL 9.1-13.0 RDW 13.7 11.5-14.5 Jun 24, 2024 09:50 AM [facility] BASIC METABOLIC PANEL+MG Specimen Type: PLASMA Comment: Specimen received in Lab at: 0948 Ordering Provider: JEVON ZZAUETA Report Released Date/Time: Jun 23, 2024 06:07 PM Reporting Lab: [facility] [address] Performing Lab: [facility] [address] CREATININE 0.8 mg/dL 0.7-1.2 UREA NITROGEN 13 mg/dL 8-26 GLUCOSE 135 mg/dL H 70-100 SODIUM 135 mmol/L L 136-145 POTASSIUM 3.6 mmol/L 3.5-5.1 CHLORIDE 103 mmol/L 98-107 CO2 24 mmol/L 22-29 CALCIUM 9.2 mg/dL 8.4-10.2 MAGNESIUM 1.9 mg/dL 1.6-2.6 ANION GAP 8 mmol/L 5-15 .CREAT EGFR(CKD-EPI) >90 >60 Jun 24, 2024 09:50 AM [facility] CBC Specimen Type: BLOOD Comment: Specimen received in Lab at: 0948 Ordering Provider: JEVON ZAZUETA Report Released Date/Time: Jun 23, 2024 06:07 PM Reporting Lab: [facility] [address] Performing Lab: [facility] [address] WBC 15.5 H 4.0-11.0 RBC 4.93 4.60-6.20 HGB 15.2 g/dL 13.5-17.9 HCT 46.5 41.0-54.0 MCV 94.3 fL 80.0-100.0 MCH 30.8 pg 27.0-33.0 MCHC 32.7 g/dL 32.0-37.5 PLT 223 150-400 MPV 11.4 fL 9.1-13.0 RDW 13.9 11.5-14.5 Jun 23, 2024 07:52 AM [facility] COMPREHENSIVE METABOLIC PANEL+MG Specimen Type: PLASMA No comment entered. Ordering Provider: JEVON ZAZUETA Report Released Date/Time: Jun 22, 2024 05:51 PM Reporting Lab: [facility] [address] Performing Lab: [facility] [address] CREATININE 0.7 mg/dL 0.7-1.2 UREA NITROGEN 16 [...] >90 >60 Jun 23, 2024 07:52 AM [facility] CBC & DIFF Specimen Type: BLOOD Comment: Automated Differential Performed Ordering Provider: JEVON ZAZUETA Report Released Date/Time: Jun 22, 2024 05:51 PM Reporting Lab: [facility] [address] Performing Lab: [facility] [address] WBC 14.9 H 4.0-11.0 RBC 5.09 4.60-6.20 [...] 0.1 0.0-0.1 Jun 22, 2024 06:10 PM [facility] CBC Specimen Type: BLOOD No comment entered. Ordering Provider: JEVON ZAZUETA Report Released Date/Time: Jun 22, 2024 05:51 PM Reporting Lab: [facility] [address] Performing Lab: [facility] [address] WBC 16.9 H 4.0-11.0 RBC 5.28 4.60-6.20 HGB 16.9 g/dL 13.5-17.9 HCT 50.4 41.0-54.0 MCV 95.5 fL 80.0-100.0 MCH 32.0 pg 27.0-33.0 MCHC 33.5 g/dL 32.0-37.5 PLT 223 150-400 MPV 10.9 fL 9.1-13.0 RDW 14.0 11.5-14.5 Jun 22, 2024 06:10 PM [facility] COMPREHENSIVE METABOLIC PANEL+MG Specimen Type: PLASMA No comment entered. Ordering Provider: JEVON ZAZUETA Report Released Date/Time: Jun 22, 2024 05:51 PM Reporting Lab: [facility] [address] Performing Lab: [facility] [address] CREATININE 0.7 mg/dL 0.7-1.2 UREA NITROGEN 17 [...] >90 >60 Jun 21, 2024 06:48 PM [facility] URINALYSIS Specimen Type: URINE No comment entered. Ordering Provider: DELIA MARTINEZ Report Released Date/Time: Jun 21, 2024 05:45 PM Reporting Lab: [facility] [address] Performing Lab: [facility] [address] URINE COLOR YELLOW SPECIFIC GRAVITY 1.041 H [...] 500 NEGATIVE Jun 21, 2024 05:34 PM [facility] POC CREATININE Specimen Type: BLOOD No comment entered. Ordering Provider: DELIA MARTINEZ Report Released Date/Time: Jun 21, 2024 06:07 PM Reporting Lab: [facility] [address] Performing Lab: [facility] [address] POC CREATININE 1.1 mg/dL 0.6-1.3 Jun 21, 2024 05:30 PM [facility] POC ABG/LACTATE Specimen Type: VENOUS BLOOD No comment entered. Ordering Provider: DELIA MARTINEZ Report Released Date/Time: Jun 21, 2024 06:07 PM Reporting Lab: [facility] [address] Performing Lab: [facility] [address] POC PH 7.470 H 7.31-7.41 POC PCO2 31.2 mm[Hg] L 41.00-51 .0 0 POC PO2 46 mm[Hg] H 35.0-40.0 POC TCO2 24 mmol/L 24.0-29.0 POC HCO3 22.7 mmol/L L 23.0-28.0 POC BE ECT -1 mmol/L POC SO2 85 H 70-75 POC LACTATE 1.85 mmol/L 0.90-1.70 Jun 21, 2024 05:24 PM [facility] PROTHROMBIN TIME/INR Specimen Type: PLASMA No comment entered. Ordering Provider: DELIA MARTINEZ Report Released Date/Time: Jun 21, 2024 05:30 PM Reporting Lab: [facility] [address] Performing Lab: [facility] [address] .INR 1.2 H 0.8-1.1 .PT 13.9 s H 9.4-12.5 Jun 21, 2024 05:24 PM [facility] LIPASE Specimen Type: PLASMA No comment entered. Ordering Provider: DELIA MARTINEZ Report Released Date/Time: Jun 21, 2024 05:30 PM Reporting Lab: [facility] [address] Performing Lab: [facility] [address] LIPASE 32 U/L <60 Jun 21, 2024 05:24 PM [facility] EXTRA GOLD GEL TUBE Specimen Type: SERUM No comment entered. Ordering Provider: DELIA MARTINEZ Report Released Date/Time: Jun 21, 2024 05:41 PM Reporting Lab: [facility] [address] Performing Lab: [facility] [address] EXTRA GOLD GEL TUBE RECEIVED Jun 21, 2024 05:24 PM [facility] COMPREHENSIVE METABOLIC PANEL+MG Specimen Type: PLASMA No comment entered. Ordering Provider: DELIA MARTINEZ Report Released Date/Time: Jun 21, 2024 05:30 PM Reporting Lab: [facility] [address] Performing Lab: [facility] [address] CREATININE 0.9 mg/dL 0.7-1.2 UREA NITROGEN 29 [...] mg/dL <0.5 Jun 21, 2024 05:24 PM [facility] CBC & DIFF Specimen Type: BLOOD Comment: Manual Differential Performed Ordering Provider: DELIA MARTINEZ Report Released Date/Time: Jun 21, 2024 05:30 PM Reporting Lab: [facility] [address] Performing Lab: [facility] [address] WBC 21.3 H 4.0-11.0 RBC 5.48 4.60-6.20 [...] MORPHOLOGY PRESENT Jun 08, 2024 10:59 AM [facility] PROTHROMBIN TIME/INR Specimen Type: PLASMA No comment entered. Ordering Provider: MARYBETH POWELL Report Released Date/Time: May 28, 2024 09:02 AM Reporting Lab: [facility] [id number] Performing Lab: [facility] [phone] .INR 1.0 0.8-1.1 .PT 11.8 s 9.4-12.5 Jun 08, 2024 10:59 AM [facility] HEMOGLOBIN A1C Specimen Type: BLOOD Comment: [...] 2024 09:02 AM Reporting Lab: [facility] [phone] Performing Lab: [facility] [phone] HEMOGLOBIN A1C 4.9 4.0-6.0 Jun 08, 2024 10:59 AM [facility] CBC Specimen Type: BLOOD No comment entered. Ordering Provider: MARYBETH POWELL Report Released Date/Time: May 28, 2024 09:02 AM Reporting Lab: [facility] [id number] Performing Lab: [facility] [phone] WBC 16.1 H 4.0-11.0 RBC 5.02 4.60-6.20 HGB 16.0 g/dL 13.5-17.9 HCT 47.1 41.0-54.0 MCV 93.8 fL 80.0-100.0 MCH 31.9 pg 27.0-33.0 MCHC 34.0 g/dL 32.0-37.5 PLT 228 150-400 MPV 10.3 fL 9.1-13.0 RDW 14.6 H 11.5-14.5 Jun 08, 2024 10:59 AM [facility] BASIC METABOLIC PANEL+MG Specimen Type: PLASMA No comment entered. Ordering Provider: MARYBETH POWELL Report Released Date/Time: May 28, 2024 09:02 AM Reporting Lab: [facility] [phone] Performing Lab: [facility] [phone] CREATININE 0.9 mg/dL 0.7-1.2 UREA NITROGEN 15 [...] 15, 2024 08:30 AM VA-TOBACCO FORMER USER [facility] Tobacco Use History This section includes a history of the smoking, or tobacco-related health factors, that were collected on or before the date of the Encounter. The data comes from the [place] facility where the Encounter took place. Date/Time Smoking Status/Tobacco Use Comment F acility May 15, 2024 08:30 AM VA-TOBACCO QUIT 15 YRS OR MORE [facility] May 06, 2023 11:30 AM VA-TOBACCO FORMER USER [facility] May 06, 2023 11:30 AM VA-TOBACCO QUIT 15 YRS OR MORE [facility] Jun 04, 2022 09:00 AM VA-TOBACCO FORMER USER [facility] Jun 04, 2022 09:00 AM VA-TOBACCO QUIT 15 YRS OR MORE [facility] Jul 10, 2021 08:00 AM VA-TOBACCO FORMER USER [facility] Jul 10, 2021 08:00 AM VA-TOBACCO QUIT 5 TO < 15 YRS [facility] May 23, 2020 08:30 AM VA-TOBACCO FORMER USER [facility] May 23, 2020 08:30 AM VA-TOBACCO QUIT 5 TO < 15 YRS [facility] Mar 20, 2019 04:03 PM VA-TOBACCO FORMER USER [facility] Mar 20, 2019 04:03 PM DE-TOBACCO QUIT 5 TO < 15 YRS [facility] Mar 21, 2018 08:13 AM FORMER TOBACCO USER 7Y OR GREATE R [facility] Feb 24, 2017 09:24 AM FORMER TOBACCO USER 7Y OR GREATE R [facility] January 07, 2016 08:01 AM FORMER TOBACCO USE >1Y <7Y [facility] Feb 03, 2015 07:58 AM FORMER TOBACCO USE <1Y [facility] Feb 26, 2014 08:41 AM CURRENT TOBACCO USER [facility] May 13, 2011 01:45 PM CURRENT TOBACCO USER [facility] Advance Directives: All historical and current [...] Mar 23, 2016 CLINICAL WARNING PARULTIM Onofre [facility] Radiology Reports: +/- [...] 2 VIEWS PA AND LAT: MEGFLACA YAMIL [id number] -[id number] M Exm Date: JUL 08, 2024@10:09 Req Phys: KATELYNN PERSON Loc: 2KG07-08-2024@11:49 Img Loc: MAIN X-RAY Service: [place] [address] (Case 24 COMPLETE) CHEST 2 VIEWS PA AND LAT (RAD Detailed) CPT:88323 Reason for Study: Uptrending WBC, POD 5 Clinical History: [place] IS NOT under investigation for COVID-19 or is COVID-19 negative POD 5, work up for uptrending wbc Responsible provider name and phone number to notify for critical findings if other than user placing the order and pager listed below: User placing orders pager: Katelynn Person LAST CREATININE 0.9 (07/07/24) Report Status: Verified Date Reported: JUL 08, 2024 Date Verified: JUL 08, 2024 Train Director E-Sig: Report: CHEST 2 VIEWS PA AND [...] cardiopulmonary disease. READING PHYSICIAN: Sarbjit Vaughn M.D. -[id number] 07/08/2024 12:46 [facility] Program [phone] (For Medical Practitioner Use Only) Attention Patients / Veterans: If you have questions or concerns about these test results, please contact your ordering provider or primary care team. Primary Interpreting Staff: RADIOLOGY,OUTSIDE SERVICE, Staff Physician / RADIOLOGY,OUTSIDE SERVICE [facility] Jul 08, 2024 10:[address] (AP) ABDOMEN/PELVIS W CONTRAST: FLACA WEAVER [id number] -1950 Ex Date: JUL 08, 2024@10:00 Req Phys: KATELYNN PERSON Pat Loc: G/07-08-2024@12:07 Img Loc: CT IMAGING Service: [place] [address] (Case 22 COMPLETE) CT (AP) ABDOMEN/PELVIS W CONTRAST(CT Detailed) CPT:71009 Contrast Media : Non-ionic Iodinated Reason for [...] PLASMA .CREAT EGFR(CKD-E >90 Ref: >=60 Allergies: ([place] only) TERAZOSIN (Mar 13, 2015) Report Status: Verified Date Reported: JUL 08, 2024 Date Verified: JUL 08, 2024 Train Director E-Sig: Report: CT (AP) ABDOMEN/PELVIS W CONTRAST [...] as noted above READING PHYSICIAN: Celestino Blanc -[id number] 07/08/2024 13:04 [facility] [phone] (For Medical Practitioner Use Only) Attention Patients / Veterans: If you have questions or concerns about these test results, please contact your ordering provider or primary care team. Primary Interpreting Staff: RADIOLOGY,OUTSIDE SERVICE, Staff Physician / RADIOLOGY,OUTSIDE SERVICE [facility] Jun 22, 2024 11:49 AM ABSCESS DRAIN PLACEMENT PERITONEAL (P): FLACA WEAVER [id number] -1950 M Exm Date: JUN 22, 2024@11:49 Req Phys: ANGELA HOLDEN [facility] Loc: [facility]06-22-2024@17:14 Img Loc: INTERVENTIONAL RADIOLOGY Service: [place] [address] (Case [id number] COMPLETE) IR PERITONEAL/RETROPERITONEAL PER(ANI Detailed) CPT:54484 Reason for Study: diverticulitis with abscess (Case 3570 COMPLETE) IR MOD SEDATION 10-22 MIN (ANI Detailed) CPT:19712 Clinical History: IS NOT under investigation for COVID-19 or is COVID-19 negative 73 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 please place abscess drain. Contact number for responsible provider who can be reached for any questions or notifications of critical findings: [phone] n/a LAST CREATININE 0.9 (06/21/24) Report Status: Verified Date Reported: JUN 22, 2024 Date Verified: JUN 22, 2024 Train Director E-Sig:/ES/LISA PENDLETON MD Report: PROCEDURES: Placement of [...] obtained. A pre-procedural Time-Out was performed per [facility] policy. The patient was placed in the supine position on the CT table. Preprocedural scan performed. The suprapubic region/lower abdominal wall was sterilely prepped and draped in the usual fashion.1% lidocaine without epinephrine was used for local anesthesia. Using real-time CT fluoroscopy, a 5 [place] Codenomiconesis catheter was advanced into the collection in the left pelvis. A wire was coiled in the collection. The tract into the collection was dilated to accommodate the 12 [place] locking pigtail drainage catheter. There was return [...] PENDLETON MD, RADIOLOGIST (Carolin) /JRT LISA PENDLETON [facility] Jun 22, 2024 11:[address] NEEDLE PLACEMENT (P): FLACA WEAVER [id number] -1950 M Exm Date: JUN 22, 2024@11:48 Req Phys: ANGELA HOLDEN Loc: [facility]06-22-2024@17:14 Img Loc: CT IMAGING Service: [place] [address] (Case [id number] COMPLETE) CT SCAN FOR NEEDLE PLACEMENT (CT Detailed) CPT:50945 Reason for Study: l pelvic abscess drain Clinical History: Report Status: Verified Date Reported: JUN 22, 2024 Date Verified: JUN 22, 2024 Train Director E-Sig:/ES/LISA PENDLETON MD Report: PROCEDURES: Placement of [...] obtained. A pre-procedural Time-Out was performed per [facility] policy. The patient was placed in the supine position on the CT table. Preprocedural scan performed. The suprapubic region/lower abdominal wall was sterilely prepped and draped in the usual fashion.1% lidocaine without epinephrine was used for local anesthesia. Using real-time CT fluoroscopy, a 5 [place] Codenomiconesis catheter was advanced into the collection in the left pelvis. A wire was coiled in the collection. The tract into the collection was dilated to accommodate the 12 [place] locking pigtail drainage catheter. There was return [...] Primary Interpreting Staff: LISA PENDLETON MD, RADIOLOGIST (Train Director) /JRT LISA PENDLETON [facility] Jun 21, 2024 06:[address] (AP) ABDOMEN/PELVIS (P): FLACA WEAVER [id number] -1950 M Exm Date: JUN 21, 2024@18:09 Req Phys: DELIA MARTINEZ Loc: [facility] EMERGENCY DEPT WALK-IN (Re Img Loc: CT IMAGING Service: [place] [address] (Case [id number] COMPLETE) CT (AP) ABDOMEN/PELVIS W CONTRAST(CT Detailed) CPT:08619 Contrast Media : Non-ionic Iodinated Reason for [...] PLASMA .CREAT EGFR(CKD-E >90 Ref: >=60 Allergies: ([place] only) TERAZOSIN (Mar 13, 2015) Defer to [...] 21, 2024 Date Verified: JUN 21, 2024 Train Director E-Sig:/ALEXI/CARLOS A CUNNINGHAM DO Report: EXAMINATION: CT [...] Interpreting Staff: CARLOS A CUNNINGHAM DO, RADIOLOGIST (Train Director) /CARLOS A ROWELL [facility] May 25, 2024 09:00 AM IR FISTULOGRAM OR SINOGRAM : FLACA WEAVER [id number] -1950 M Ex Date: MAY 25, 2024@09:00 Req Phys: AMINTA PRUITT Loc: [facility] INTERVENT[facility]AL [facility] Img Loc: INTERVENTIONAL RADIOLOGY Service: [place] [address] (Case [id number] COMPLETE) IR FISTULOGRAM OR SINOGRAM (ANI Detailed) CPT:69624 Contrast Media : unspecified contrast media Reason for Study: s/p drain placement for diverticular abscess- assess for drain Clinical History: [place] IS NOT under investigation for COVID-19 or [...] 25, 2024 Date Verified: MAY 25, 2024 Train Director E-Sig:/ES/DAVID BURNS MD Report: PROCEDURES 05/25/2024 9:48 [...] Primary Interpreting Staff: DAVID BURNS MD, RADIOLOGIST (Train Director) /CSS DAVID BURNS [facility] May 25, 2024 08:[address] (AP) ABDOMEN/PELVIS (P): FLACA WEAVER [id number] -1950 M Exm Date: MAY 25, 2024@08:23 Req Phys: DAVID BURNS Pat Loc: [facility] X[facility] INTERVENTIONAL [facility]IO Img Loc: CT IMAGING Service: [place] [address] (Case [id number] COMPLETE) CT (AP) ABDOMEN/PELVIS W/O CONTRA(CT Detailed) CPT:28304 Reason for Study: assess abscess and possible [...] PLASMA .CREAT EGFR(CKD-E >90 Ref: >=60 Allergies: ([place] only) TERAZOSIN (Mar 13, 2015) Report Status: Verified Date Reported: MAY 25, 2024 Date Verified: MAY 25, 2024 Train Director E-Sig:/ES/JESSENIA GOODMAN MD Report: EXAM: CT abdomen and pelvis without intravenous contrast. 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 TECHNIQUE: Helical acquisition of image data was performed for the abdomen and pelvis without intravenous contrast. Dose: 512.57 mGy*cm COMPARISON: CT abdomen pelvis with contrast 05/11/[address] abdomen pelvis 04/23/2024.; CT abdomen pelvis 05/05/2020 FINDINGS: CERTIFIED DENTAL ASSISTANT: Pigtail catheter projecting over the left [...] Primary Interpreting Staff: JESSENIA GOODMAN MD, RADIOLOGIST (Train Director) Primary Interpreting Resident: YOHANNES MELO DO, STILL PUMP OPERATOR /JESSENIA LOUIE [facility] Pathology Reports: +/- 30 days of [...] COSIGNER: URGENCY: STATUS: COMPLETED $APHDR Reporting Lab: [facility] [CLIA# [id number]] [place] [address] - - - - - - - [...] - PATHOLOGY REPORT Accession No. [id number] - - - - - - - [...] - PATHOLOGY REPORT Accession No. [id number] - - - - - - - [...] Second circumferential surgical margin, en face; E-F: Estate Planning Counselor diverticula; G: Estate Planning Counselor section of mesentery; H: Random new accounts banking representative section of additional adipose tissue fragment. [...] One colonic tissue ring, bisected transversely. [facility]. ([facility] MICROSCOPIC DESCRIPTION: Microscopic examination performed. DIAGNOSIS: 1. Colon, sigmoid, sigmoidectomy-- - Diverticulosis with perforation and focal abscess formation 2. Colon, anastomotic rings, excision-- - Viable colonic mucosa without diagnostic abnormality /alexi/ EDUARDO PALOMARES MD STAFF PATHOLOGIST Signed Jul 06, 2024@10:40 Performing Laboratory: Surgical Pathology Report Performed By: [facility] [CLIA# [id number]] [place] [address] $FTR - - - - - - - - - - - - - - - - - - - - - - - - - - - - - - - - - - - - - - - - (End of report) EDUARDO PALOMARES MD [facility] Date Jul 06, 2024 - - - - - - - - - - - - - - - - - - - - - - - - - - - - - - - - - - - - - - - - FLACA WEAVER STANDARD FORM 515 ID:[id number] SEX:M :1950 AGE: 73 LOC:26722 ADM:Jun DX:DIVERTICULITIS PCP: Jatinder Cabrera /alexi/ EDUARDO PALOMARES MD STAFF PATHOLOGIST Signed: 07/06/2024 10:40 EDUARDO PALOMARES [facility] Jun 22, 2024 01:15 PM LR MICROBIOLOGY RE PORT: Reporting Lab: [facility] [CLIA# [id number]] [place] [address] Accession [UID]: [id number]] Received: Jun 22, 2024@13:38 Collection sample: FLUID Collection date: Jun 22, 2024 13:15 Provider: ANGELA HOLDEN Comment on specimen: LLQ ABSCESS, RECEIVED IN ANAEROBIC TRANSPORT VIAL Test(s) ordered: GRAM STAIN.................... completed: Jun 22, 2024 15:03 CULTURE & SUSCEPTIBILITY...... completed: Jun 25, 2024 * BACTERIOLOGY FINAL REPORT => Jun 25, 2024 10:56 TECH CODE: [id number] GRAM STAIN: DIRECT SMEAR of specimen before [...] -=--=--=--=--=--=--=-- Performing Laboratory: Bacteriology Report Performed By: [facility] [CLIA# [id number]] [place] [address] [facility] Jun 22, 2024 01:15 PM LR MICROBIOLOGY RE PORT: Reporting Lab: [facility] [CLIA# [id number]] [place] [address] Accession [UID]: [id number] [[id number]] Received: Jun 22, 2024@13:38 Collection sample: FLUID Collection date: Jun 22, 2024 13:15 Provider: ANGELA HOLDEN Comment on specimen: LLQ ABSCESS, RECEIVED IN ANAEROBIC TRANSPORT VIAL Test(s) ordered: ANAEROBIC CULTURE............. completed: Jun 28, 2024 * BACTERIOLOGY FINAL REPORT => Jun 28, 2024 10:08 TECH CODE: [id number] CULTURE RESULTS: HEAVY GROWTH MIXED ANAEROBES Comment: including the followin+ Bacteroides fragilis 4+ Bacteroides vulgatus 4+ Clostridium innocuum Beta-lactamase negative 4+ Bacteroides caccae 4+ Parvimonas micra 4+ Bacteroides uniformis 4+ Gemella morbillorum 4+ anaerobic small, Gram Positive Rods 4+ Bacteroides thetaiotaomicron Standard workup is now complete. Bacteriology Remark(s): THIS REPORT IS FINAL =--=--=--=--=--=--=--=--=--= --=--=--=--=--=--=--=--=--=- -=--=--=--=--=--=--=-- Performing Laboratory: Bacteriology Report Performed By: [facility] [CLIA# [id number]] [place] [address] [facility] Jun 21, 2024 06:12 PM LR MICROBIOLOGY RE PORT: Reporting Lab: [facility] [CLIA# [id number]] [place] [address] Accession [UID]: [id number] [[id number]] Received: Jun 21, 2024@18:12 Collection sample: BLOOD [...] -=--=--=--=--=--=--=-- Performing Laboratory: Bacteriology Report Performed By: [facility] [CLIA# [id number]] [place] [address] [facility] Jun 21, 2024 06:11 PM LR MICROBIOLOGY RE PORT: Reporting Lab: [facility] [CLIA# [id number]] [place] [address] Accession [UID]: [id number] [[id number]] Received: Jun 21, 2024@18:11 Collection sample: BLOOD [...] -=--=--=--=--=--=--=-- Performing Laboratory: Bacteriology Report Performed By: [facility] [CLIA# [id number]] [place] [address] [facility] Jun 08, 2024 11:00 AM LR MICROBIOLOGY RE PORT: Reporting Lab: [facility] [CLIA# [id number]] [place] [address] Accession [UID]: [id number] [[id number]] Received: Jun 08, 2024@11:00 Collection sample: URINE Collection date: Jun 08, 2024 11:00 Provider: MARYBETH POWELL Comment on specimen: urine Test(s) ordered: CULTURE & SUSCEPTIBILITY...... completed: Jun 09, 2024 * BACTERIOLOGY FINAL REPORT => Jun 09, 2024 19:12 TECH CODE: [id number] CULTURE RESULTS: ESCHERICHIA COLI - Quantity: >100,000 [...] -=--=--=--=--=--=--=-- Performing Laboratory: Bacteriology Report Performed By: [facility] [CLIA# [id number]] [place] [address] [facility]
--- OUTSIDE RECORDS SUMMARY | 2024-07-16 07:36 | XMS_ITS | Encounter Summary ---
Author Name [facility] [place] [facility] [place] Address [address] [place] [address] Care Team Providers Care Drafter Apprentice Name Role Phone JATINDER CABRERA Primary Care [...] PART A Sep 29, 2016 PART A [id number] JUDY WEAVER PATIENT Selected Encounter This section includes the information on record at [place] for the Encounter. Date/Time Encounter Type Encounter Description Reason Pro vider Source Jun 25, 2024 09:54 AM Outpatient Encounter CLINICAL PHARMACY I[facility] Encounter [...] 07:00 AM AM[place]ULATORY - NONE [place] [facility] Jun 27, 2024 07:30 [facility] Jun 27, 2024 08:00 AM [place] [facility] Jul 03, 2024 05:55 [facility] Jul 13, 2024 08:15 AM AMBULATORY - NONE [facility] Active, Pending, and Scheduled Orders [...] Chemi stry Order URINALYSIS URINE WC ONCE [facility] Jun 12, 2024 12:00 AM Laboratory - Chemi stry Order BNP PLASMA SP ONCE [facility] Jun 21, 2024 05:45 PM Laboratory - Blood Bank Order TYPE & SCREEN - LAB BLOOD [facility] Jul 03, 2024 12:00 AM Laboratory - Blood Bank Order TYPE & SCREEN - LAB BLOOD [facility] Jul 16, 2024 12:00 AM Laboratory - [...] Reporting Lab: [facility] [address] Performing Lab: [facility] [address] PHOSPHORUS 3.0 mg/dL 2.3-4.3 Jul 10, 2024 07:16 AM [facility] BASIC METABOLIC PANEL+MG Specimen Type: PLASMA No comment entered. Ordering Provider: JUANCARLOS ECHOLS S Report Released Date/Time: Jul 09, 2024 12:23 PM Reporting Lab: [facility] [address] Performing Lab: [facility] [address] CREATININE 0.7 mg/dL 0.7-1.2 UREA NITROGEN 27 [...] Reporting Lab: [facility] [address] Performing Lab: [facility] [address] WBC 18.8 H 4.0-11.0 RBC 5.08 4.60-6.20 [...] Reporting Lab: [facility] [address] Performing Lab: [facility] [address] WBC 15.3 H 4.0-11.0 RBC 4.91 4.60-6.20 [...] Reporting Lab: [facility] [address] Performing Lab: [facility] [address] URINE COLOR YELLOW SPECIFIC GRAVITY >1.050 H [...] Reporting Lab: [facility] [address] Performing Lab: [facility] [address] WBC 17.5 H 4.0-11.0 RBC 4.88 4.60-6.20 [...] Reporting Lab: [facility] [address] Performing Lab: [facility] [address] PHOSPHORUS 2.6 mg/dL 2.3-4.3 Jul 08, 2024 09:54 AM [facility] BASIC METABOLIC PANEL+MG Specimen Type: PLASMA Comment: Specimen received in Lab at: 0952 Ordering Provider: JUANCARLOS ECHOLS Report Released Date/Time: Jul 07, 2024 04:49 PM Reporting Lab: [facility] [address] Performing Lab: [facility] [address] CREATININE 0.9 mg/dL 0.7-1.2 UREA NITROGEN 26 [...] Reporting Lab: [facility] [address] Performing Lab: [facility] [address] C DIFF TOX B GENE PCR NEGATIVE Negative Jul 07, 2024 07:41 AM [facility] PHOSPHORUS Specimen Type: PLASMA No comment entered. Ordering Provider: JEVON ZAZUETA Report Released Date/Time: Jul 06, 2024 03:44 PM Reporting Lab: [facility] [address] Performing Lab: [facility] [address] PHOSPHORUS 3.1 mg/dL 2.3-4.3 Jul 07, 2024 07:41 AM [facility] BASIC METABOLIC PANEL+MG Specimen Type: PLASMA No comment entered. Ordering Provider: JEVON ZAZUETA Report Released Date/Time: Jul 06, 2024 03:44 PM Reporting Lab: [facility] [address] Performing Lab: [facility] [address] CREATININE 0.9 mg/dL 0.7-1.2 UREA NITROGEN 20 [...] Reporting Lab: [facility] [address] Performing Lab: [facility] [address] WBC 21.2 H 4.0-11.0 RBC 5.09 4.60-6.20 [...] Reporting Lab: [facility] [address] Performing Lab: [facility] [address] WBC 18.0 H 4.0-11.0 RBC 4.83 4.60-6.20 [...] Reporting Lab: [facility] [address] Performing Lab: [facility] [address] PHOSPHORUS 3.6 mg/dL 2.3-4.3 Jul 06, 2024 07:21 AM [facility] BASIC METABOLIC PANEL+MG Specimen Type: PLASMA No comment entered. Ordering Provider: JEVON ZAZUETA Report Released Date/Time: Jul 05, 2024 01:22 PM Reporting Lab: [facility] [address] Performing Lab: [facility] [address] CREATININE 0.7 mg/dL 0.7-1.2 UREA NITROGEN 12 [...] Reporting Lab: [facility] [address] Performing Lab: [facility] [address] MAGNESIUM 2.0 mg/dL 1.6-2.6 Jul 05, 2024 07:17 AM [facility] PHOSPHORUS Specimen Type: PLASMA No comment entered. Ordering Provider: JUANCARLOS ECHOLS S Report Released Date/Time: Jul 04, 2024 09:39 AM Reporting Lab: [facility] [address] Performing Lab: [facility] [address] PHOSPHORUS 2.0 mg/dL L 2.3-4.3 Jul 05, 2024 07:17 AM [facility] BASIC METABOLIC PANEL+MG Specimen Type: PLASMA No comment entered. Ordering Provider: JUANCARLOS ECHOLS S Report Released Date/Time: Jul 04, 2024 09:39 AM Reporting Lab: [facility] [address] Performing Lab: [facility] [address] CREATININE 0.7 mg/dL 0.7-1.2 UREA NITROGEN 12 [...] Reporting Lab: [facility] [address] Performing Lab: [facility] [address] WBC 18.3 H 4.0-11.0 RBC 4.49 L [...] Reporting Lab: [facility] [address] Performing Lab: [facility] [address] CREATININE 0.7 mg/dL 0.7-1.2 UREA NITROGEN 16 [...] Reporting Lab: [facility] [address] Performing Lab: [facility] [address] PHOSPHORUS 2.8 mg/dL 2.3-4.3 Jul 04, 2024 07:16 AM [facility] CBC Specimen Type: BLOOD No comment entered. Ordering Provider: GABINO CAMERON Report Released Date/Time: Jul 03, 2024 06:31 PM Reporting Lab: [facility] [address] Performing Lab: [facility] [address] WBC 20.6 H 4.0-11.0 RBC 4.63 4.60-6.20 [...] Reporting Lab: [facility] [address] Performing Lab: [facility] [address] WBC 20.6 H 4.0-11.0 RBC 4.63 4.60-6.20 [...] Reporting Lab: [facility] [address] Performing Lab: [facility] [address] BNP 292 pg/mL H <99 Jul 03, 2024 10:32 PM [facility] FINGERSTICK GLUCOSE Specimen Type: BLOOD Comment: Save Result Nurse Notified Ordering Provider: KATELYNN PERSON Report Released Date/Time: Jul 03, 2024 10:50 PM Reporting Lab: [facility] [address] Performing Lab: [facility] [address] FINGERSTICK GLUCOSE 126 mg/dL H 70-100 Jul 03, 2024 05:33 PM [facility] FINGERSTICK GLUCOSE Specimen Type: BLOOD Comment: Save Result Nurse Notified Ordering Provider: KATELYNN PERSON Report Released Date/Time: Jul 03, 2024 05:46 PM Reporting Lab: [facility] [address] Performing Lab: [facility] [address] FINGERSTICK GLUCOSE 141 mg/dL H 70-100 Jul 03, 2024 02:31 PM [facility] POC ABG/ELECTROLYTES Specimen Type: ARTERIAL BLOOD Comment: FIO2 = 97% Patient Temp: 36.0 C Sample Type = ARTERIAL Ordering Provider: MAZIN ARREDONDO Report Released Date/Time: Jul 03, 2024 01:48 PM Reporting Lab: [facility] [address] Performing Lab: [facility] [address] POC PH 7.387 7.35-7.45 POC PCO2 34.4 [...] Reporting Lab: [facility] [address] Performing Lab: [facility] [address] POC PH 7.280 L 7.35-7.45 POC PCO2 [...] Reporting Lab: [facility] [address] Performing Lab: [facility] [address] URINE COLOR YELLOW SPECIFIC GRAVITY 1.031 1.003-1.03 [...] Reporting Lab: [facility] [address] Performing Lab: [facility] [address] WBC 15.8 H 4.0-11.0 RBC 5.11 4.60-6.20 [...] Reporting Lab: [facility] [address] Performing Lab: [facility] [address] CREATININE 0.8 mg/dL 0.7-1.2 UREA NITROGEN 13 [...] Reporting Lab: [facility] [address] Performing Lab: [facility] [address] WBC 15.5 H 4.0-11.0 RBC 4.93 4.60-6.20 [...] Reporting Lab: [facility] [address] Performing Lab: [facility] [address] CREATININE 0.7 mg/dL 0.7-1.2 UREA NITROGEN 16 [...] Reporting Lab: [facility] [address] Performing Lab: [facility] [address] WBC 14.9 H 4.0-11.0 RBC 5.09 4.60-6.20 [...] Reporting Lab: [facility] [address] Performing Lab: [facility] [address] WBC 16.9 H 4.0-11.0 RBC 5.28 4.60-6.20 [...] Reporting Lab: [facility] [address] Performing Lab: [facility] [address] CREATININE 0.7 mg/dL 0.7-1.2 UREA NITROGEN 17 [...] Reporting Lab: [facility] [address] Performing Lab: [facility] [address] URINE COLOR YELLOW SPECIFIC GRAVITY 1.041 H [...] Reporting Lab: [facility] [address] Performing Lab: [facility] [address] POC CREATININE 1.1 mg/dL 0.6-1.3 Jun 21, 2024 05:30 PM [facility] POC ABG/LACTATE Specimen Type: VENOUS BLOOD No comment entered. Ordering Provider: DELIA MARTINEZ Report Released Date/Time: Jun 21, 2024 06:07 PM Reporting Lab: [facility] [address] Performing Lab: [facility] [address] POC PH 7.470 H 7.31-7.41 POC PCO2 [...] Reporting Lab: [facility] [address] Performing Lab: [facility] [address] .INR 1.2 H 0.8-1.1 .PT 13.9 s H 9.4-12.5 Jun 21, 2024 05:24 PM [facility] LIPASE Specimen Type: PLASMA No comment entered. Ordering Provider: DELIA MARTINEZ Report Released Date/Time: Jun 21, 2024 05:30 PM Reporting Lab: [facility] [address] Performing Lab: [facility] [address] LIPASE 32 U/L <60 Jun 21, 2024 05:24 PM [facility] EXTRA GOLD GEL TUBE Specimen Type: SERUM No comment entered. Ordering Provider: DELIA MARTINEZ Report Released Date/Time: Jun 21, 2024 05:41 PM Reporting Lab: [facility] [address] Performing Lab: [facility] [address] EXTRA GOLD GEL TUBE RECEIVED Jun 21, 2024 05:24 PM [facility] COMPREHENSIVE METABOLIC PANEL+MG Specimen Type: PLASMA No comment entered. Ordering Provider: DELIA MARTINEZ Report Released Date/Time: Jun 21, 2024 05:30 PM Reporting Lab: [facility] [address] Performing Lab: [facility] [address] CREATININE 0.9 mg/dL 0.7-1.2 UREA NITROGEN 29 [...] Reporting Lab: [facility] [address] Performing Lab: [facility] [address] WBC 21.3 H 4.0-11.0 RBC 5.48 4.60-6.20 [...] 28, 2024 09:02 AM Reporting Lab: [facility] [address] Performing Lab: [facility] [address] .INR 1.0 0.8-1.1 .PT 11.8 s 9.4-12.5 [...] 28, 2024 09:02 AM Reporting Lab: [facility] [address] Performing Lab: [facility] [address] HEMOGLOBIN A1C 4.9 4.0-6.0 Jun 08, 2024 10:59 AM [facility] CBC Specimen Type: BLOOD No comment entered. Ordering Provider: MARYBETH POWELL Report Released Date/Time: May 28, 2024 09:02 AM Reporting Lab: [facility] [address] Performing Lab: [facility] [address] WBC 16.1 H 4.0-11.0 RBC 5.02 4.60-6.20 [...] 28, 2024 09:02 AM Reporting Lab: [facility] [address] Performing Lab: [facility] [address] CREATININE 0.9 mg/dL 0.7-1.2 UREA NITROGEN 15 [...] Source Jun 25, 2024 01:51 AM 3 [facility] Social History: Smoking Status (Most current) [...] Mar 23, 2016 CLINICAL WARNING ITM [facility] Radiology Reports: [...] CHEST 2 VIEWS LILIAM Mustafa ND LAT: FLACA WEAVER [id number] -1950 M Exm Date: JUL 08, 2024@10:09 Req Phys: KATELYNN PERSON Loc: [facility]/07-08-2024@11:49 Img Loc: MAIN X-RAY Service: [place] [address] (Case 24 COMPLETE) CHEST 2 VIEWS PA AND LAT (RAD Detailed) CPT:77457 Reason for Study: Uptrending WBC, POD 5 Clinical History: Neptune IS NOT under investigation for COVID-19 or is COVID-19 negative POD 5, work up for uptrending wbc Responsible provider name and phone number to notify for critical findings if other than user placing the order and pager listed below: User placing orders pager: Katelynn Person LAST CREATININE 0.9 (07/07/24) Report Status: Verified Date Reported: JUL 08, 2024 Date Verified: JUL 08, 2024 Safety Scientist E-Sig: Report: CHEST 2 VIEWS PA AND LAT HISTORY: Uptrending WBC, POD 5 COMPARISON: CT chest 11/12/2022 TECHNIQUE: Frontal and lateral views of the chest, submitted to the [place] National Teleradiology Program (NTP) for interpretation. FINDINGS: Lungs: Clear. No focal consolidation. No pulmonary edema. Pleura: No pleural effusion or pneumothorax. Mediastinum: Normal size and contour. Bones: Unremarkable. Impression: No acute cardiopulmonary disease. READING PHYSICIAN: Sarbjit Vaughn M.D. -[phone] 07/08/2024 12:46 [facility] National Teleradiology Program [phone] (For Medical Practitioner Use Only) Attention Patients / Veterans: If you have questions or concerns about these test results, please contact your ordering provider or primary care team. Primary Interpreting Staff: RADIOLOGY,OUTSIDE SERVICE, Staff Physician / RADIOLOGY,OUTSIDE SERVICE [facility] Jul 08, 2024 10:[address] (AP) ABDOMEN/PE LVIS W CONTRAST: FLACA WEAVER [id number] -1950 M Exm Date: JUL 08, 2024@10:00 Req Phys: KATELYNN PERSON Pat Loc: 2KG/07-08-2024@12:07 Img Loc: CT IMAGING Service: [place] [address] (Case 22 COMPLETE) CT (AP) ABDOMEN/PELVIS W CONTRAST(CT Detailed) CPT:22526 Contrast Media : Non-ionic Iodinated Reason for [...] PLASMA .CREAT EGFR(CKD-E >90 Ref: >=60 Allergies: ([place] only) TERAZOSIN (Mar 13, 2015) Report Status: Verified Date Reported: JUL 08, 2024 Date Verified: JUL 08, 2024 Safety Scientist E-Sig: Report: CT (AP) ABDOMEN/PELVIS W CONTRAST HISTORY: POD 5, Uptrending WBC - Concern for Abscess/other infection COMPARISON: June 21, 2024 TECHNIQUE: CT abdomen and pelvis was performed after intravenous contrast. Axial, sagittal and coronal reformatted images. The study was performed at the local [place] facility and images were sent to the [place] National Teleradiology Program (NTP) for interpretation. Number [...] changes as noted above READING PHYSICIAN: Celestino Blnac -[phone] 07/08/2024 13:04 [facility] National Teleradiology Program [phone] (For Medical Practitioner Use Only) Attention Patients / Veterans: If you have questions or concerns about these test results, please contact your ordering provider or primary care team. Primary Interpreting Staff: RADIOLOGY,OUTSIDE SERVICE, Staff Physician / RADIOLOGY,OUTSIDE SERVICE [facility] Jun 22, 2024 11:49 AM ABSCESS DRAIN PLAC EMENT PERITONEAL (P): FLACA WEAVER [id number] -1950 M Exm Date: JUN 22, 2024@11:49 Req Phys: ANGELA HOLDEN Loc: [facility]06-22-2024@17:14 Img Loc: INTERVENTIONAL RADIOLOGY Service: [place] [address] (Case [id number] COMPLETE) IR PERITONEAL/RETROPERITONEAL PER(ANI Detailed) CPT:01351 Reason for Study: diverticulitis with abscess (Case 3570 COMPLETE) IR MOD SEDATION 10-22 MIN (ANI Detailed) CPT:82753 Clinical History: IS NOT under investigation for COVID-19 or is COVID-19 negative 73 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 please place abscess drain. Contact number for responsible provider who can be reached for any questions or notifications of critical findings: [phone] n/a LAST CREATININE 0.9 (06/21/24) Report Status: Verified Date Reported: JUN 22, 2024 Date Verified: JUN 22, 2024 Safety Scientist E-Sig:/ES/LISA PENDLETON MD Report: PROCEDURES: Placement of [...] anesthesia. Using real-time CT fluoroscopy, a 5 Dominican GadgetATMesis catheter was advanced into the collection in the left pelvis. A wire was coiled in the collection. The tract into the collection was dilated to accommodate the 12 Dominican locking pigtail drainage catheter. There was return [...] Primary Interpreting Staff: LISA PENDLETON MD, RADIOLOGIST (Safety Scientist) /JRT LISA PENDLETON [facility] Jun 22, 2024 11:[address] NEEDLE PLACEMEN T (P): MEGFLACADARCI LOBO [id number] -1950 M Exm Date: JUN 22, 2024@11:48 Req Phys: ANGELA HOLDEN Loc: [facility]/06-22-2024@17:14 Img Loc: CT IMAGING Service: [place] [address] (Case [id number] COMPLETE) CT SCAN FOR NEEDLE PLACEMENT (CT Detailed) CPT:73402 Reason for Study: l pelvic abscess drain Clinical History: Report Status: Verified Date Reported: JUN 22, 2024 Date Verified: JUN 22, 2024 Safety Scientist E-Sig:/ES/LISA PENDLETON MD Report: PROCEDURES: Placement of [...] anesthesia. Using real-time CT fluoroscopy, a 5 Dominican GadgetATMesis catheter was advanced into the collection in the left pelvis. A wire was coiled in the collection. The tract into the collection was dilated to accommodate the 12 Dominican locking pigtail drainage catheter. There was return [...] Primary Interpreting Staff: LISA PENDLETON MD, RADIOLOGIST (Safety Scientist) /JRLISA [facility] Jun 21, 2024 06:[address] (AP) ABDOMEN/PE LVIS (P): FLACA WEAVER [id number] -1950 M Exm Date: JUN 21, 2024@18:09 Req Phys: DELIA MARTINEZ Loc: [facility] (Re Img Loc: CT IMAGING Service: [place] [address] (Case [id number] COMPLETE) CT (AP) ABDOMEN/PELVIS W CONTRAST(CT Detailed) CPT:83313 Contrast Media : Non-ionic Iodinated Reason for [...] PLASMA .CREAT EGFR(CKD-E >90 Ref: >=60 Allergies: ([place] only) TERAZOSIN (Mar 13, 2015) Defer to [...] 21, 2024 Date Verified: JUN 21, 2024 Safety Scientist E-Sig:/ES/CARLOS A CUNNINGHAM DO Report: EXAMINATION: CT [...] Interpreting Staff: CARLOS A CUNNINGHAM DO, RADIOLOGIST (Safety Scientist) /CARLOS A ROWELL [facility] Pathology Reports: +/- 30 [...] COSIGNER: URGENCY: STATUS: COMPLETED $APHDR Reporting Lab: [facility] [CLIA# [id number]] [place] [address] - - - - - - - [...] - PATHOLOGY REPORT Accession No. [id number] - - - - - - - [...] - PATHOLOGY REPORT Accession No. [id number] - - - - - - - [...] Second circumferential surgical margin, en face; E-F: Dry Cleaner Hand diverticula; G: Dry Cleaner Hand section of mesentery; H: Random entry level marketing representative section of additional adipose tissue [...] Report Performed By: [facility] [CLIA# [id number]] [place] [address] $FTR - - - - - - [...] - - FLACA WEAVER STANDARD FORM 515 ID:[id number] SEX:M :1950 AGE: 73 LOC:10179 ADM:Jun DX:DIVERTICULITIS PCP: Jatinder Cabrera /alexi/ EDUARDO PALOMARES MD STAFF PATHOLOGIST Signed: 07/06/2024 10:40 EDUARDO PALOMARES [facility] Jun 22, 2024 01:15 PM LR MICROBIOLOGY RE PORT: Reporting Lab: [facility] [CLIA# [id number]] [place] [address] Accession [UID]: [id number] [[id number]] Received: Jun 22, 2024@13:38 Collection sample: FLUID Collection date: Jun 22, 2024 13:15 Provider: ANGELA HOLDEN Comment on specimen: LLQ ABSCESS, RECEIVED IN ANAEROBIC TRANSPORT VIAL Test(s) ordered: GRAM STAIN.................... completed: Jun 22, 2024 15:03 CULTURE & SUSCEPTIBILITY...... completed: Jun 25, 2024 * BACTERIOLOGY FINAL REPORT => Jun 25, 2024 10:56 TECH CODE: [id number] GRAM STAIN: DIRECT SMEAR of specimen before [...] Report Performed By: [facility] [CLIA# [id number]] [place] [address] [facility] Jun 22, 2024 01:15 PM LR MICROBIOLOGY RE PORT: Reporting Lab: [facility] [CLIA# [id number]] [place] [address] Accession [UID]: [id number] [[id number]] Received: Jun 22, 2024@13:38 Collection sample: FLUID Collection date: Jun 22, 2024 13:15 Provider: ANGELA HOLDEN Comment on specimen: LLQ ABSCESS, RECEIVED IN ANAEROBIC TRANSPORT VIAL Test(s) ordered: ANAEROBIC CULTURE............. completed: Jun 28, 2024 * BACTERIOLOGY FINAL REPORT => Jun 28, 2024 10:08 TECH CODE: [id number] CULTURE RESULTS: HEAVY GROWTH MIXED ANAEROBES Comment: [...] Report Performed By: [facility] [CLIA# [id number]] [place] [address] [facility] Jun 21, 2024 06:12 PM LR MICROBIOLOGY RE PORT: Reporting Lab: [facility] [CLIA# [id number]] [place] [address] Accession [UID]: [id number] [[id number]] Received: Jun 21, 2024@18:12 Collection sample: BLOOD [...] Report Performed By: [facility] [CLIA# [id number]] [place] [address] [facility] Jun 21, 2024 06:11 PM LR MICROBIOLOGY RE PORT: Reporting Lab: [facility] [CLIA# [id number]] [place] [address] Accession [UID]: [id number] [[id number]] Received: Jun 21, 2024@18:11 Collection sample: BLOOD [...] Report Performed By: [facility] [CLIA# [id number]] [place] [address] [facility] Jun 08, 2024 11:00 AM LR MICROBIOLOGY RE PORT: Reporting Lab: [facility] [CLIA# [id number]] [place] [address] Accession [UID]: [id number] [[id number]] Received: Jun 08, 2024@11:00 Collection sample: URINE Collection date: Jun 08, 2024 11:00 Provider: MARYBETH POWELL Comment on specimen: urine Test(s) ordered: CULTURE & SUSCEPTIBILITY...... completed: Jun 09, 2024 * BACTERIOLOGY FINAL REPORT => Jun 09, 2024 19:12 TECH CODE: [id number] CULTURE RESULTS: ESCHERICHIA COLI - Quantity: >100,000 [...] Report Performed By: [facility] [CLIA# [id number]] [address] [place] [address] [facility] Encounter Notes: All associated encounter notes This section contains the clinical notes associated to the Encounter. Date/Time Encounter Note(s) Provider Source Jun 25, 2024 09:55 AM PHARMACY EDUCATION NOTE: LOCAL TITLE: EDUCATION PHARMACY MED INSTRUCTION/RECONCILIATION STANDARD TITLE: PHARMACY EDUCATION NOTE DATE OF NOTE: JUN 25, 2024@09:55 ENTRY DATE: JUN 25, 2024@09:55:33 AUTHOR: DANISH BARRERA EXP COSIGNER: URGENCY: STATUS: COMPLETED MEDICATION DISCHARGE EDUCATION LEARNING NEEDS/OBJECTIVES Patient with multiple behavior warnings from staff, left [place] prior to receiving pharmacy education. Computer System Technician was told by pt's RN, that pt knew to go sit and wait at pharmacy and receive his new medications. New meds including, Acetaminophen, Augment (recommended by ID, despite intermediate coverage/microbiology results), doc/senna and ibuprofen. Discharging provider was okay with patient resuming travel pta HFpEF medications. Tobacco Cessation Discharge Plan: Not Applicable Active Outpatient Medications (including Supplies): Outpatient Medications Status 1) ACETAMINOPHEN 500MG TAB TAKE TWO TABLETS BY MOUTH ACTIVE THREE TIMES A DAY NEEDED FOR PAIN FOR PAIN 2) AMOXICILLIN 875/CLAV K 125MG TAB TAKE 1 TABLET BY ACTIVE MOUTH TWICE A DAY INFECTION 3) ATORVASTATIN CALCIUM 40MG TAB TAKE ONE-HALF TABLET BY ACTIVE MOUTH AT BEDTIME FOR CHOLESTEROL 4) BAG,LEG LATEX REUSABLE UROCARE #5931 USE 1 BAG ACTIVE DIRECTED WITH [facility] 5) BAG,LEG LATEX REUSABLE UROCARE #7581 USE 1 BAG HOLD DIRECTED WITH [place] 6) COLON ELECTROLYTE LAVAGE PWD FOR SOLN TAKE 1 ACTIVE CONTAINER (4 LITERS) BY MOUTH ONCE PRE-OP FOR COLO-RECTAL SURGERY - INSTRUCTION SHEET MAILED FROM CLINIC 7) DOCUSATE NA 50MG/SENNOSIDES 8.6MG TAB TAKE 1 TABLET ACTIVE BY MOUTH AT BEDTIME FOR CONSTIPATION 8) EMPAGLIFLOZIN 25MG TAB TAKE ONE-HALF TABLET BY MOUTH ACTIVE EVERY DAY 9) FUROSEMIDE 20MG TAB TAKE ONE TABLET BY MOUTH EVERY ACTIVE DAY FOR EXCESS FLUID 10) HCTZ 12.5/LISINOPRIL 10MG TAB TAKE ONE HALF TABLET BY ACTIVE MOUTH EVERY DAY FOR BLOOD PRESSURE 11) IBUPROFEN 600MG TAB TAKE ONE TABLET BY MOUTH THREE ACTIVE TIMES A DAY NEEDED FOR PAIN 12) ISOSORBIDE MONONITRATE 30MG SA TAB TAKE ONE TABLET BY ACTIVE MOUTH EVERY DAY FOR CHEST PAIN 13) NEOMYCIN SULFATE 500MG TAB TAKE TWO TABLETS BY MOUTH ACTIVE THREE TIMES A DAY PREOP AT 1PM, 2PM AND 11PM ON THE DAY BEFORE COLORECTAL SURGERY (TAKE ALONG WITH METRONIDAZOLE) 14) NITROFURANTOIN MONO/MACRO 100MG SA CAP TAKE ONE ACTIVE CAPSULE BY MOUTH TWICE A DAY FOR UTI 15) NITROGLYCERIN 0.4MG SL TAB DISSOLVE ONE TABLET UNDER ACTIVE THE TONGUE THREE TIMES A DAY NEEDED CHEST PAIN FOR CHEST PAIN * MAY REPEAT EVERY 5 MINUTES--NO MORE THAN 3 TOTAL 16) PSYLLIUM ORAL PWD TAKE 2 TEASPOONSFUL BY MOUTH EVERY ACTIVE DAY FOR CONSTIPATION 17) SPIRONOLACTONE 25MG TAB TAKE ONE-HALF TABLET BY MOUTH ACTIVE EVERY DAY FOR BLOOD PRESSURE 18) SPONGE,DRAIN 4IN X 4IN EXCILON DEBORAH#7020 USE SPONGE(S) ACTIVE TOPICALLY DIRECTED 19) TAPE,MEDIPORE H SOFT 4IN X 10YD 3M#3514 CUT AND APPLY ACTIVE TAPE TOPICALLY DIRECTED PARTICIPANTS: Other caregiver (specify): Not present TEACHING STRATEGY: Other: Patient not present, as he left [place] prior to receiving education. Please see other notes related to patients admission and discharge. READINESS TO LEARN: Patient lacked readiness and wanted to discharge [facility], please see other admit notes for details. PATIENT/FAMILY RESPONSE (OUTCOME): No evidence of learning FOLLOW-UP RECOMMENDED: As directed by discharging provider /alexi/ DANISH BARRERA PHARMACIST Signed: 06/25/2024 10:02 Receipt Acknowledged By: * AWAITING SIGNATURE * KATELYNN PERSON [facility]
--- OUTSIDE RECORDS SUMMARY | 2024-07-16 07:36 | XMS_ITS ---
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 Date/Time Encounter Type Encounter Description Reason Pro vider Source Jun 25, 2024 09:10 AM Inpatient Visit DAILY HOSPITALIZATION DATA [facility] TRUJILLO IHAlex Encounter Template Text not used by [place] [...] 27, 2024 07:00 AM [facility] Jun 27, 2024 07:30 AM [facility] Jun 27, 2024 08:00 AM [facility] Jul 03, 2024 05:55 AM [facility] Jul 13, 2024 08:15 AM AMBULATORY - NONE [facility] Active, Pending, and Scheduled Orders This [...] Chemi stry Order URINALYSIS URINE WC ONCE [facility] Jun 12, 2024 12:00 AM Laboratory - Chemi stry Order BNP PLASMA SP ONCE [facility] Jun 21, 2024 05:45 PM Laboratory - Blood Bank Order TYPE & SCREEN - LAB BLOOD [facility] Jul 03, 2024 12:00 AM Laboratory - Blood Bank Order TYPE & SCREEN - LAB BLOOD [facility] Jul 16, 2024 12:00 AM Laboratory - Chemi stry Order CBC BLOOD SP ONCE [facility] Jul 17, 2024 12:00 AM Laboratory - Chemi stry Order BASIC METABOLIC PANEL+MG PLASMA SP ONCE [facility] Lab Results: +/- [...] Range Comment Jul 10, 2024 07:16 AM [facility] PHOSPHORUS Specimen Type: PLASMA No comment entered. Ordering Provider: JUANCARLOS ECHOLS Report Released Date/Time: Jul 09, 2024 12:23 PM Reporting Lab: [facility] [address] Performing Lab: [facility] [address] PHOSPHORUS 3.0 mg/dL 2.3-4.3 Jul 10, 2024 07:16 AM [facility] BASIC METABOLIC PANEL+MG Specimen Type: PLASMA No comment entered. Ordering Provider: JUANCARLOS ECHOLS S Report Released Date/Time: Jul 09, 2024 12:23 PM Reporting Lab: [facility] [address] Performing Lab: [facility] [address] CREATININE 0.7 mg/dL 0.7-1.2 UREA NITROGEN 27 mg/dL H 8-26 GLUCOSE 104 mg/dL H 70-100 SODIUM 133 mmol/L L 136-145 POTASSIUM 4.3 mmol/L 3.5-5.1 CHLORIDE 102 mmol/L 98-107 CO2 19 mmol/L L 22-29 CALCIUM 10.1 mg/dL 8.4-10.2 MAGNESIUM 1.9 mg/dL 1.6-2.6 ANION GAP 12 mmol/L 5-15 .CREAT EGFR(CKD-EPI) >90 >60 Jul 10, 2024 07:15 AM [facility] CBC Specimen Type: BLOOD No comment entered. Ordering Provider: JUANCARLOS ECHOLS S Report Released Date/Time: Jul 09, 2024 12:23 PM Reporting Lab: [facility] [address] Performing Lab: [facility] [address] WBC 18.8 H 4.0-11.0 RBC 5.08 4.60-6.20 HGB 15.9 g/dL 13.5-17.9 HCT 46.8 41.0-54.0 MCV 92.1 fL 80.0-100.0 MCH 31.3 pg 27.0-33.0 MCHC 34.0 g/dL 32.0-37.5 PLT 479 H 150-400 MPV 10.2 fL 9.1-13.0 RDW 13.7 11.5-14.5 Jul 09, 2024 07:08 AM [facility] CBC Specimen Type: BLOOD No comment entered. Ordering Provider: QUYNH WEISS AV Report Released Date/Time: Jul 08, 2024 06:18 PM Reporting Lab: [facility] [address] Performing Lab: [facility] [address] WBC 15.3 H 4.0-11.0 RBC 4.91 4.60-6.20 HGB 15.1 g/dL 13.5-17.9 HCT 45.7 41.0-54.0 MCV 93.1 fL 80.0-100.0 MCH 30.8 pg 27.0-33.0 MCHC 33.0 g/dL 32.0-37.5 PLT 443 H 150-400 MPV 10.0 fL 9.1-13.0 RDW 13.5 11.5-14.5 Jul 08, 2024 10:50 AM [facility] URINALYSIS Specimen Type: URINE No comment entered. Ordering Provider: KATELYNN PERSON Report Released Date/Time: Jul 08, 2024 08:41 AM Reporting Lab: [facility] [address] Performing Lab: [facility] [address] URINE COLOR YELLOW SPECIFIC GRAVITY >1.050 H [...] NEGATIVE NEGATIVE Jul 08, 2024 09:54 AM [facility] CBC Specimen Type: BLOOD Comment: Specimen received in Lab at: [id number] Ordering Provider: JUANCARLOS ECHOLS Report Released Date/Time: Jul 07, 2024 04:49 PM Reporting Lab: [facility] [address] Performing Lab: [facility] [address] WBC 17.5 H 4.0-11.0 RBC 4.88 4.60-6.20 HGB 14.9 g/dL 13.5-17.9 HCT 45.7 41.0-54.0 MCV 93.6 fL 80.0-100.0 MCH 30.5 pg 27.0-33.0 MCHC 32.6 g/dL 32.0-37.5 PLT 472 H 150-400 MPV 10.2 fL 9.1-13.0 RDW 13.7 11.5-14.5 Jul 08, 2024 09:54 AM [facility] PHOSPHORUS Specimen Type: PLASMA Comment: Specimen received in Lab at: [id number] Ordering Provider: JUANCARLOS ECHOLS Report Released Date/Time: Jul 07, 2024 04:49 PM Reporting Lab: [facility] [address] Performing Lab: [facility] [address] PHOSPHORUS 2.6 mg/dL 2.3-4.3 Jul 08, 2024 09:54 AM [facility] BASIC METABOLIC PANEL+MG Specimen Type: PLASMA Comment: Specimen received in Lab at: 0952 Ordering Provider: JUANCARLOS ECHOLS Report Released Date/Time: Jul 07, 2024 04:49 PM Reporting Lab: [facility] [address] Performing Lab: [facility] [address] CREATININE 0.9 mg/dL 0.7-1.2 UREA NITROGEN 26 mg/dL 8-26 GLUCOSE 128 mg/dL H 70-100 SODIUM 134 mmol/L L 136-145 POTASSIUM 3.4 mmol/L L 3.5-5.1 CHLORIDE 100 mmol/L 98-107 CO2 24 mmol/L 22-29 CALCIUM 9.8 mg/dL 8.4-10.2 MAGNESIUM 1.8 mg/dL 1.6-2.6 ANION GAP 10 mmol/L 5-15 .CREAT EGFR(CKD-EPI) >90 >60 Jul 07, 2024 02:00 PM [facility] C DIFF PANEL Specimen Type: FECES No comment entered. Ordering Provider: JEVON ZAZUETA Report Released Date/Time: Jul 07, 2024 12:26 PM Reporting Lab: [facility] [address] Performing Lab: [facility] [address] C DIFF TOX B GENE PCR NEGATIVE Negative Jul 07, 2024 07:41 AM [facility] PHOSPHORUS Specimen Type: PLASMA No comment entered. Ordering Provider: JEVON ZAZUETA Report Released Date/Time: Jul 06, 2024 03:44 PM Reporting Lab: [facility] [address] Performing Lab: [facility] [address] PHOSPHORUS 3.1 mg/dL 2.3-4.3 Jul 07, 2024 07:41 AM [facility] BASIC METABOLIC PANEL+MG Specimen Type: PLASMA No comment entered. Ordering Provider: JEVON ZAZUETA Report Released Date/Time: Jul 06, 2024 03:44 PM Reporting Lab: [facility] [address] Performing Lab: [facility] [address] CREATININE 0.9 mg/dL 0.7-1.2 UREA NITROGEN 20 mg/dL 8-26 GLUCOSE 157 mg/dL H 70-100 SODIUM 136 mmol/L 136-145 POTASSIUM 3.7 mmol/L 3.5-5.1 CHLORIDE 102 mmol/L 98-107 CO2 21 mmol/L L 22-29 CALCIUM 9.8 mg/dL 8.4-10.2 MAGNESIUM 1.9 mg/dL 1.6-2.6 ANION GAP 13 mmol/L 5-15 .CREAT EGFR(CKD-EPI) >90 >60 Jul 07, 2024 07:40 AM [facility] CBC Specimen Type: BLOOD No comment entered. Ordering Provider: JEVON ZAZUETA Report Released Date/Time: Jul 06, 2024 03:44 PM Reporting Lab: [facility] [address] Performing Lab: [facility] [address] WBC 21.2 H 4.0-11.0 RBC 5.09 4.60-6.20 HGB 15.9 g/dL 13.5-17.9 HCT 48.3 41.0-54.0 MCV 94.9 fL 80.0-100.0 MCH 31.2 pg 27.0-33.0 MCHC 32.9 g/dL 32.0-37.5 PLT 500 H 150-400 MPV 10.3 fL 9.1-13.0 RDW 13.6 11.5-14.5 Jul 06, 2024 07:21 AM [facility] CBC Specimen Type: BLOOD No comment entered. Ordering Provider: JEVON ZAZUETA Report Released Date/Time: Jul 05, 2024 01:22 PM Reporting Lab: [facility] [address] Performing Lab: [facility] [address] WBC 18.0 H 4.0-11.0 RBC 4.83 4.60-6.20 HGB 14.6 g/dL 13.5-17.9 HCT 45.5 41.0-54.0 MCV 94.2 fL 80.0-100.0 MCH 30.2 pg 27.0-33.0 MCHC 32.1 g/dL 32.0-37.5 PLT 368 150-400 MPV 10.4 fL 9.1-13.0 RDW 13.6 11.5-14.5 Jul 06, 2024 07:21 AM [facility] PHOSPHORUS Specimen Type: PLASMA No comment entered. Ordering Provider: JEVON ZAZUETA Report Released Date/Time: Jul 05, 2024 01:22 PM Reporting Lab: [facility] [address] Performing Lab: [facility] [address] PHOSPHORUS 3.6 mg/dL 2.3-4.3 Jul 06, 2024 07:21 AM [facility] BASIC METABOLIC PANEL+MG Specimen Type: PLASMA No comment entered. Ordering Provider: JEVON ZAZUETA Report Released Date/Time: Jul 05, 2024 01:22 PM Reporting Lab: [facility] [address] Performing Lab: [facility] [address] CREATININE 0.7 mg/dL 0.7-1.2 UREA NITROGEN 12 mg/dL 8-26 GLUCOSE 108 mg/dL H 70-100 SODIUM 138 mmol/L 136-145 POTASSIUM 3.4 mmol/L L 3.5-5.1 CHLORIDE 104 mmol/L 98-107 CO2 20 mmol/L L 22-29 CALCIUM 9.3 mg/dL 8.4-10.2 MAGNESIUM 1.9 mg/dL 1.6-2.6 ANION GAP 14 mmol/L 5-15 .CREAT EGFR(CKD-EPI) >90 >60 Jul 05, 2024 07:17 AM [facility] MAGNESIUM Specimen Type: PLASMA No comment entered. Ordering Provider: JUANCARLOS ECHOLS Report Released Date/Time: Jul 04, 2024 09:39 AM Reporting Lab: [facility] [address] Performing Lab: [facility] [address] MAGNESIUM 2.0 mg/dL 1.6-2.6 Jul 05, 2024 07:17 AM [facility] PHOSPHORUS Specimen Type: PLASMA No comment entered. Ordering Provider: JUANCARLOS ECHOLS S Report Released Date/Time: Jul 04, 2024 09:39 AM Reporting Lab: [facility] [address] Performing Lab: [facility] [address] PHOSPHORUS 2.0 mg/dL L 2.3-4.3 Jul 05, 2024 07:17 AM [facility] BASIC METABOLIC PANEL+MG Specimen Type: PLASMA No comment entered. Ordering Provider: JUANCARLOS ECHOLS S Report Released Date/Time: Jul 04, 2024 09:39 AM Reporting Lab: [facility] [address] Performing Lab: [facility] [address] CREATININE 0.7 mg/dL 0.7-1.2 UREA NITROGEN 12 mg/dL 8-26 GLUCOSE 84 mg/dL 70-100 SODIUM 135 mmol/L L 136-145 POTASSIUM 3.8 mmol/L 3.5-5.1 CHLORIDE 104 mmol/L 98-107 CO2 24 mmol/L 22-29 CALCIUM 9.3 mg/dL 8.4-10.2 MAGNESIUM 2.0 mg/dL 1.6-2.6 ANION GAP 7 mmol/L 5-15 .CREAT EGFR(CKD-EPI) >90 >60 Jul 05, 2024 07:16 AM [facility] CBC Specimen Type: BLOOD No comment entered. Ordering Provider: JUANCARLOS ECHOLS S Report Released Date/Time: Jul 04, 2024 09:39 AM Reporting Lab: [facility] [address] Performing Lab: [facility] [address] WBC 18.3 H 4.0-11.0 RBC 4.49 L 4.60-6.20 HGB 14.1 g/dL 13.5-17.9 HCT 43.4 41.0-54.0 MCV 96.7 fL 80.0-100.0 MCH 31.4 pg 27.0-33.0 MCHC 32.5 g/dL 32.0-37.5 PLT 317 150-400 MPV 10.0 fL 9.1-13.0 RDW 13.9 11.5-14.5 Jul 04, 2024 07:17 AM [facility] BASIC METABOLIC PANEL+MG Specimen Type: PLASMA No comment entered. Ordering Provider: GABINO CAMERON Report Released Date/Time: Jul 03, 2024 06:31 PM Reporting Lab: [facility] [address] Performing Lab: [facility] [address] CREATININE 0.7 mg/dL 0.7-1.2 UREA NITROGEN 16 mg/dL 8-26 GLUCOSE 129 mg/dL H 70-100 SODIUM 137 mmol/L 136-145 POTASSIUM 3.7 mmol/L 3.5-5.1 CHLORIDE 107 mmol/L 98-107 CO2 22 mmol/L 22-29 CALCIUM 9.0 mg/dL 8.4-10.2 MAGNESIUM 1.9 mg/dL 1.6-2.6 ANION GAP 8 mmol/L 5-15 .CREAT EGFR(CKD-EPI) >90 >60 Jul 04, 2024 07:17 AM [facility] PHOSPHORUS Specimen Type: PLASMA No comment entered. Ordering Provider: GABINO CAMERON Report Released Date/Time: Jul 03, 2024 06:31 PM Reporting Lab: [facility] [address] Performing Lab: [facility] [address] PHOSPHORUS 2.8 mg/dL 2.3-4.3 Jul 04, 2024 07:16 AM [facility] CBC Specimen Type: BLOOD No comment entered. Ordering Provider: GABINO CAMERON Report Released Date/Time: Jul 03, 2024 06:31 PM Reporting Lab: [facility] [address] Performing Lab: [facility] [address] WBC 20.6 H 4.0-11.0 RBC 4.63 4.60-6.20 HGB 14.2 g/dL 13.5-17.9 HCT 43.4 41.0-54.0 MCV 93.7 fL 80.0-100.0 MCH 30.7 pg 27.0-33.0 MCHC 32.7 g/dL 32.0-37.5 PLT 329 150-400 MPV 10.4 fL 9.1-13.0 RDW 13.8 11.5-14.5 Jul 04, 2024 07:16 AM [facility] CBC & DIFF Specimen Type: BLOOD Comment: Manual Differential Performed Ordering Provider: GABINO CAMERON Report Released Date/Time: Jul 03, 2024 06:31 PM Reporting Lab: [facility] [address] Performing Lab: [facility] [address] WBC 20.6 H 4.0-11.0 RBC 4.63 4.60-6.20 [...] MORPHOLOGY PRESENT Jul 04, 2024 07:15 AM [facility] BNP Specimen Type: PLASMA No comment entered. Ordering Provider: GABINO CAMERON Report Released Date/Time: Jul 03, 2024 06:31 PM Reporting Lab: [facility] [address] Performing Lab: [facility] [address] BNP 292 pg/mL H <99 Jul 03, 2024 10:32 PM [facility] FINGERSTICK GLUCOSE Specimen Type: BLOOD Comment: Save Result Nurse Notified Ordering Provider: KATELYNN PERSON Report Released Date/Time: Jul 03, 2024 10:50 PM Reporting Lab: [facility] [address] Performing Lab: [facility] [address] FINGERSTICK GLUCOSE 126 mg/dL H 70-100 Jul 03, 2024 05:33 PM [facility] FINGERSTICK GLUCOSE Specimen Type: BLOOD Comment: Save Result Nurse Notified Ordering Provider: KATELYNN PERSON Report Released Date/Time: Jul 03, 2024 05:46 PM Reporting Lab: [facility] [address] Performing Lab: [facility] [address] FINGERSTICK GLUCOSE 141 mg/dL H 70-100 Jul 03, 2024 02:31 PM [facility] POC ABG/ELECTROLYTES Specimen Type: ARTERIAL BLOOD Comment: FIO2 = 97% Patient Temp: 36.0 C Sample Type = ARTERIAL Ordering Provider: MAZIN ARREDONDO Report Released Date/Time: Jul 03, 2024 01:48 PM Reporting Lab: [facility] [address] Performing Lab: [facility] [address] POC PH 7.387 7.35-7.45 POC PCO2 34.4 [...] H 80.0-105.0 Jul 03, 2024 01:05 PM [facility] POC ABG/ELECTROLYTES Specimen Type: ARTERIAL BLOOD Comment: FIO2 = 53% Patient Temp: 36.2 C Sample Type = ARTERIAL Ordering Provider: MAZIN ARREDONDO Report Released Date/Time: Jul 03, 2024 01:48 PM Reporting Lab: [facility] [address] Performing Lab: [facility] [address] POC PH 7.280 L 7.35-7.45 POC PCO2 [...] mm[Hg] 80.0-105.0 Jul 03, 2024 06:15 AM [facility] URINALYSIS Specimen Type: URINE No comment entered. Ordering Provider: MARYBETH POWELL Report Released Date/Time: Jun 12, 2024 04:01 PM Reporting Lab: [facility] [address] Performing Lab: [facility] [address] URINE COLOR YELLOW SPECIFIC GRAVITY 1.031 1.003-1.03 [...] 250 NEGATIVE Jul 03, 2024 06:13 AM [facility] CBC Specimen Type: BLOOD No comment entered. Ordering Provider: MARYBETH POWELL Report Released Date/Time: Jun 12, 2024 03:59 PM Reporting Lab: [facility] [address] Performing Lab: [facility] [address] WBC 15.8 H 4.0-11.0 RBC 5.11 4.60-6.20 HGB 16.1 g/dL 13.5-17.9 HCT 49.1 41.0-54.0 MCV 96.1 fL 80.0-100.0 MCH 31.5 pg 27.0-33.0 MCHC 32.8 g/dL 32.0-37.5 PLT 357 150-400 MPV 9.8 fL 9.1-13.0 RDW 13.7 11.5-14.5 Jun 24, 2024 09:50 AM [facility] BASIC METABOLIC PANEL+MG Specimen Type: PLASMA Comment: Specimen received in Lab at: [id number] Ordering Provider: JEVON ZAZUETA Report Released Date/Time: Jun 23, 2024 06:07 PM Reporting Lab: [facility] [address] Performing Lab: [facility] [address] CREATININE 0.8 mg/dL 0.7-1.2 UREA NITROGEN 13 mg/dL 8-26 GLUCOSE 135 mg/dL H 70-100 SODIUM 135 mmol/L L 136-145 POTASSIUM 3.6 mmol/L 3.5-5.1 CHLORIDE 103 mmol/L 98-107 CO2 24 mmol/L 22-29 CALCIUM 9.2 mg/dL 8.4-10.2 MAGNESIUM 1.9 mg/dL 1.6-2.6 ANION GAP 8 mmol/L 5-15 .CREAT EGFR(CKD-EPI) >90 >60 Jun 24, 2024 09:50 AM [facility] CBC Specimen Type: BLOOD Comment: Specimen received in Lab at: 0948 Ordering Provider: JEVON ZAZUETA Report Released Date/Time: Jun 23, 2024 06:07 PM Reporting Lab: [facility] [address] Performing Lab: [facility] [address] WBC 15.5 H 4.0-11.0 RBC 4.93 4.60-6.20 HGB 15.2 g/dL 13.5-17.9 HCT 46.5 41.0-54.0 MCV 94.3 fL 80.0-100.0 MCH 30.8 pg 27.0-33.0 MCHC 32.7 g/dL 32.0-37.5 PLT 223 150-400 MPV 11.4 fL 9.1-13.0 RDW 13.9 11.5-14.5 Jun 23, 2024 07:52 AM [facility] COMPREHENSIVE METABOLIC PANEL+MG Specimen Type: PLASMA No comment entered. Ordering Provider: JEVON ZAZUETA Report Released Date/Time: Jun 22, 2024 05:51 PM Reporting Lab: [facility] [address] Performing Lab: [facility] [address] CREATININE 0.7 mg/dL 0.7-1.2 UREA NITROGEN 16 [...] >90 >60 Jun 23, 2024 07:52 AM [facility] CBC & DIFF Specimen Type: BLOOD Comment: Automated Differential Performed Ordering Provider: JEVON ZAZUETA Report Released Date/Time: Jun 22, 2024 05:51 PM Reporting Lab: [facility] [address] Performing Lab: [facility] [address] WBC 14.9 H 4.0-11.0 RBC 5.09 4.60-6.20 [...] 0.1 0.0-0.1 Jun 22, 2024 06:10 PM [facility] CBC Specimen Type: BLOOD No comment entered. Ordering Provider: JEVON ZAZUETA Report Released Date/Time: Jun 22, 2024 05:51 PM Reporting Lab: [facility] [address] Performing Lab: [facility] [address] WBC 16.9 H 4.0-11.0 RBC 5.28 4.60-6.20 HGB 16.9 g/dL 13.5-17.9 HCT 50.4 41.0-54.0 MCV 95.5 fL 80.0-100.0 MCH 32.0 pg 27.0-33.0 MCHC 33.5 g/dL 32.0-37.5 PLT 223 150-400 MPV 10.9 fL 9.1-13.0 RDW 14.0 11.5-14.5 Jun 22, 2024 06:10 PM [facility] COMPREHENSIVE METABOLIC PANEL+MG Specimen Type: PLASMA No comment entered. Ordering Provider: JEVON ZAZUETA Report Released Date/Time: Jun 22, 2024 05:51 PM Reporting Lab: [facility] [address] Performing Lab: [facility] [address] CREATININE 0.7 mg/dL 0.7-1.2 UREA NITROGEN 17 [...] >90 >60 Jun 21, 2024 06:48 PM [facility] URINALYSIS Specimen Type: URINE No comment entered. Ordering Provider: DELIA MARTINEZ Report Released Date/Time: Jun 21, 2024 05:45 PM Reporting Lab: [facility] [address] Performing Lab: [facility] [address] URINE COLOR YELLOW SPECIFIC GRAVITY 1.041 H [...] 500 NEGATIVE Jun 21, 2024 05:34 PM [facility] POC CREATININE Specimen Type: BLOOD No comment entered. Ordering Provider: DELIA MARTINEZ Report Released Date/Time: Jun 21, 2024 06:07 PM Reporting Lab: [facility] [address] Performing Lab: [facility] [address] POC CREATININE 1.1 mg/dL 0.6-1.3 Jun 21, 2024 05:30 PM [facility] POC ABG/LACTATE Specimen Type: VENOUS BLOOD No comment entered. Ordering Provider: DELIA MARTINEZ Report Released Date/Time: Jun 21, 2024 06:07 PM Reporting Lab: [facility] [address] Performing Lab: [facility] [address] POC PH 7.470 H 7.31-7.41 POC PCO2 31.2 mm[Hg] L 41.00-51 .0 0 POC PO2 46 mm[Hg] H 35.0-40.0 POC TCO2 24 mmol/L 24.0-29.0 POC HCO3 22.7 mmol/L L 23.0-28.0 POC BE ECT -1 mmol/L POC SO2 85 H 70-75 POC LACTATE 1.85 mmol/L 0.90-1.70 Jun 21, 2024 05:24 PM [facility] PROTHROMBIN TIME/INR Specimen Type: PLASMA No comment entered. Ordering Provider: DELIA MARTINEZ Report Released Date/Time: Jun 21, 2024 05:30 PM Reporting Lab: [facility] [address] Performing Lab: [facility] [address] .INR 1.2 H 0.8-1.1 .PT 13.9 s H 9.4-12.5 Jun 21, 2024 05:24 PM [facility] LIPASE Specimen Type: PLASMA No comment entered. Ordering Provider: DELIA MARTINEZ Report Released Date/Time: Jun 21, 2024 05:30 PM Reporting Lab: [facility] [address] Performing Lab: [facility] [address] LIPASE 32 U/L <60 Jun 21, 2024 05:24 PM [facility] EXTRA GOLD GEL TUBE Specimen Type: SERUM No comment entered. Ordering Provider: DELIA MARTINEZ Report Released Date/Time: Jun 21, 2024 05:41 PM Reporting Lab: [facility] [address] Performing Lab: [facility] [address] EXTRA GOLD GEL TUBE RECEIVED Jun 21, 2024 05:24 PM [facility] COMPREHENSIVE METABOLIC PANEL+MG Specimen Type: PLASMA No comment entered. Ordering Provider: DELIA MARTINEZ Report Released Date/Time: Jun 21, 2024 05:30 PM Reporting Lab: [facility] [address] Performing Lab: [facility] [address] CREATININE 0.9 mg/dL 0.7-1.2 UREA NITROGEN 29 [...] mg/dL <0.5 Jun 21, 2024 05:24 PM [facility] CBC & DIFF Specimen Type: BLOOD Comment: Manual Differential Performed Ordering Provider: DELIA MARTINEZ Report Released Date/Time: Jun 21, 2024 05:30 PM Reporting Lab: [facility] [address] Performing Lab: [facility] [address] WBC 21.3 H 4.0-11.0 RBC 5.48 4.60-6.20 [...] MORPHOLOGY PRESENT Jun 08, 2024 10:59 AM [facility] PROTHROMBIN TIME/INR Specimen Type: PLASMA No comment entered. Ordering Provider: MARYBETH POWELL Report Released Date/Time: May 28, 2024 09:02 AM Reporting Lab: [facility] [address] Performing Lab: [facility] [address] .INR 1.0 0.8-1.1 .PT 11.8 s 9.4-12.5 Jun 08, 2024 10:59 AM [facility] HEMOGLOBIN A1C Specimen Type: BLOOD [...] 09:02 AM Reporting Lab: [facility] [address] Performing Lab: [facility] [address] HEMOGLOBIN A1C 4.9 4.0-6.0 Jun 08, 2024 10:59 AM [facility] CBC Specimen Type: BLOOD No comment entered. Ordering Provider: MARYBETH POWELL Report Released Date/Time: May 28, 2024 09:02 AM Reporting Lab: [facility] [id number] Performing Lab: [facility] [phone] WBC 16.1 H 4.0-11.0 RBC 5.02 4.60-6.20 HGB 16.0 g/dL 13.5-17.9 HCT 47.1 41.0-54.0 MCV 93.8 fL 80.0-100.0 MCH 31.9 pg 27.0-33.0 MCHC 34.0 g/dL 32.0-37.5 PLT 228 150-400 MPV 10.3 fL 9.1-13.0 RDW 14.6 H 11.5-14.5 Jun 08, 2024 10:59 AM [facility] BASIC METABOLIC PANEL+MG Specimen Type: PLASMA No comment entered. 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 Radiology Reports: +/- 30 [...] VIEWS PA A ND LAT: FLACA WEAVER [id number] -1950 M Exm Date: JUL 08, 2024@10:09 Req Phys: KATELYNN PERSON Loc: 2KG/07-08-2024@11:49 Img Loc: MAIN X-RAY Service: [place] [address] (Case 24 COMPLETE) CHEST 2 VIEWS PA AND LAT (RAD Detailed) CPT:18117 Reason for Study: Uptrending WBC, POD 5 Clinical History: [place] IS NOT under investigation for COVID-19 or is COVID-19 negative POD 5, work up for uptrending wbc Responsible provider name and phone number to notify for critical findings if other than user placing the order and pager listed below: User placing orders pager: Katelynn Person LAST CREATININE 0.9 (07/07/24) Report Status: Verified Date Reported: JUL 08, 2024 Date Verified: JUL 08, 2024 Hat Band Attacher E-Sig: Report: CHEST 2 VIEWS PA AND [...] cardiopulmonary disease. READING PHYSICIAN: Sarbjit Vaughn M.D. -[phone] 07/08/2024 12:46 [facility] National Teleradiology Program [phone] (For Medical Practitioner Use Only) Attention Patients / Veterans: If you have questions or concerns about these test results, please contact your ordering provider or primary care team. Primary Interpreting Staff: RADIOLOGY,OUTSIDE SERVICE, Staff Physician / RADIOLOGY,OUTSIDE SERVICE [facility] Jul 08, 2024 10:[address] (AP) ABDOMEN/PE LVIS W CONTRAST: MEGFLACADARCI LOBO [id number] -1950 M Exm Date: JUL 08, 2024@10:00 Req Phys: KATELYNN PERSON Pat Loc: G07-08-2024@12:07 Img Loc: CT IMAGING Service: [place] [address] (Case 22 COMPLETE) CT (AP) ABDOMEN/PELVIS W CONTRAST(CT Detailed) CPT:17063 Contrast Media : Non-ionic Iodinated Reason for [...] PLASMA .CREAT EGFR(CKD-E >90 Ref: >=60 Allergies: ([place] only) TERAZOSIN (Mar 13, 2015) Report Status: Verified Date Reported: JUL 08, 2024 Date Verified: JUL 08, 2024 Hat Band Attacher E-Sig: Report: CT (AP) ABDOMEN/PELVIS W CONTRAST [...] as noted above READING PHYSICIAN: Celestino Blanc -[id number] 07/08/2024 13:04 [facility] Teleradiology [facility] [phone] (For Medical Practitioner Use Only) Attention Patients / Veterans: If you have questions or concerns about these test results, please contact your ordering provider or primary care team. Primary Interpreting Staff: RADIOLOGY,OUTSIDE SERVICE, Staff Physician / RADIOLOGY,OUTSIDE SERVICE [facility] Jun 22, 2024 11:49 AM ABSCESS DRAIN PLAC EMENT PERITONEAL (P): FLACA WEAVER [id number] -1950 M Exm Date: JUN 22, 2024@11:49 Req Phys: ANGELA HOLDEN Pat Loc: [facility]06-22-2024@17:14 Img Loc: INTERVENTIONAL RADIOLOGY Service: [place] [address] (Case [id number] COMPLETE) IR PERITONEAL/RETROPERITONEAL PER(ANI Detailed) CPT:33788 Reason for Study: diverticulitis with abscess (Case 3570 COMPLETE) IR MOD SEDATION 10-22 MIN (ANI Detailed) CPT:01917 Clinical History: [facility] IS NOT under investigation for COVID-19 or is COVID-19 negative 73 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 please place abscess drain. Contact number for responsible provider who can be reached for any questions or notifications of critical findings: [phone] n/a LAST CREATININE 0.9 (06/21/24) Report Status: Verified Date Reported: JUN 22, 2024 Date Verified: JUN 22, 2024 Hat Band Attacher E-Sig:/ES/LISA PENDLETON MD Report: PROCEDURES: Placement of [...] Using real-time CT fluoroscopy, a 5 Dutch [employer] centesis catheter was advanced into the collection in the left pelvis. A wire was coiled in the collection. The tract into the collection was dilated to accommodate the 12 Dutch locking pigtail drainage catheter. There was return [...] Primary Interpreting Staff: LISA PENDLETON MD, RADIOLOGIST (Hat Band Attacher) /LISA CARDONA [facility] Jun 22, 2024 11:[address] NEEDLE PLACEMEN T (P): FLACA WEAVER [id number] -1950 M Exm Date: JUN 22, 2024@11:48 Req Phys: ANGELA HOLDEN Loc: 2K/06-22-2024@17:14 Img Loc: CT IMAGING Service: [place] [address] (Case [id number] COMPLETE) CT SCAN FOR NEEDLE PLACEMENT (CT Detailed) CPT:90275 Reason for Study: l pelvic abscess drain Clinical History: Report Status: Verified Date Reported: JUN 22, 2024 Date Verified: JUN 22, 2024 Hat Band Attacher E-Sig:/ES/LISA PENDLETON MD Report: PROCEDURES: Placement of [...] Using real-time CT fluoroscopy, a 5 Dutch Pure [employer]esis catheter was advanced into the collection in the left pelvis. A wire was coiled in the collection. The tract into the collection was dilated to accommodate the 12 Dutch locking pigtail drainage catheter. There was return [...] Primary Interpreting Staff: LISA PENDLETON MD, RADIOLOGIST (Hat Band Attacher) /JRLISA [facility] Jun 21, 2024 06:[address] (AP) ABDOMEN/PE LVIS (P): FLACA WEAVER [id number] -1950 M Exm Date: JUN 21, 2024@18:09 Req Phys: MANADELIAZENAIDA Patel Loc: [facility] (Re Img Loc: CT IMAGING Service: [place] [address] (Case [id number] COMPLETE) CT (AP) ABDOMEN/PELVIS W CONTRAST(CT Detailed) CPT:69852 Contrast Media : Non-ionic Iodinated Reason for [...] PLASMA .CREAT EGFR(CKD-E >90 Ref: >=60 Allergies: ([place] only) TERAZOSIN (Mar 13, 2015) Defer to [...] 21, 2024 Date Verified: JUN 21, 2024 Hat Band Attacher E-Sig:/ALEXI/CARLOS A CUNNINGHAM DO Report: EXAMINATION: CT [...] Interpreting Staff: CARLOS A CUNNINGHAM DO, RADIOLOGIST (Hat Band Attacher) /CARLOS A ROWELL [facility] Pathology Reports: +/- 30 [...] COSIGNER: URGENCY: STATUS: COMPLETED $APHDR Reporting Lab: [facility] [CLIA# [id number]] [place] [address] - - - - - - - [...] - PATHOLOGY REPORT Accession No. [id number] - - - - - - - [...] - PATHOLOGY REPORT Accession No. [id number] - - - - - - - [...] Second circumferential surgical margin, en face; E-F: Harvesting Supervisor diverticula; G: Harvesting Supervisor section of mesentery; H: Random field sales representative section of additional adipose tissue [...] colonic tissue ring, bisected transversely. SS. (D[facility] DES[facility]: Microscopic examination performed. DIAGNOSIS: 1. Colon, sigmoid, sigmoidectomy-- - Diverticulosis with perforation and focal abscess formation 2. Colon, anastomotic rings, excision-- - Viable colonic mucosa without diagnostic abnormality /alexi/ EDUARDO PALOMARES MD STAFF PATHOLOGIST Signed Jul 06, 2024@10:40 Performing Laboratory: Surgical Pathology Report Performed By: [facility] [CLIA# [id number]] [place] [address] $FTR - - - - - - [...] - - FLACA WEAVER STANDARD FORM 515 ID:[id number] SEX:M :1950 AGE: 73 LOC:93797 ADM:Jun DX:DIVERTICULITIS PCP: Jatinder Cabrera /alexi/ EDUARDO PALOMARES MD STAFF PATHOLOGIST Signed: 07/06/2024 10:40 EDUARDO PALOMARES [facility] Jun 22, 2024 01:15 PM LR MICROBIOLOGY RE PORT: Reporting Lab: [facility] [CLIA# [id number]] [place] [address] Accession [UID]: [id number] [[id number]] Received: Jun 22, 2024@13:38 Collection sample: FLUID Collection date: Jun 22, 2024 13:15 Provider: ANGELA HOLDEN Comment on specimen: LLQ ABSCESS, RECEIVED IN ANAEROBIC TRANSPORT VIAL Test(s) ordered: GRAM STAIN.................... completed: Jun 22, 2024 15:03 CULTURE & SUSCEPTIBILITY...... completed: Jun 25, 2024 * BACTERIOLOGY FINAL REPORT => Jun 25, 2024 10:56 TECH CODE: [id number] GRAM STAIN: DIRECT SMEAR of specimen before [...] -=--=--=--=--=--=--=-- Performing Laboratory: Bacteriology Report Performed By: [facility] [CLIA# [id number]] [place] [address] [facility] Jun 22, 2024 01:15 PM LR MICROBIOLOGY RE PORT: Reporting Lab: [facility] [CLIA# [id number]] [place] [address] Accession [UID]: [id number] [[id number]] Received: Jun 22, 2024@13:38 Collection sample: FLUID Collection date: Jun 22, 2024 13:15 Provider: ANGELA HOLDEN Comment on specimen: LLQ ABSCESS, RECEIVED IN ANAEROBIC TRANSPORT VIAL Test(s) ordered: ANAEROBIC CULTURE............. completed: Jun 28, 2024 * BACTERIOLOGY FINAL REPORT => Jun 28, 2024 10:08 TECH CODE: [id number] CULTURE RESULTS: HEAVY GROWTH MIXED ANAEROBES Comment: including the followin+ Bacteroides fragilis 4+ Bacteroides vulgatus 4+ Clostridium innocuum Beta-lactamase negative 4+ Bacteroides caccae 4+ Parvimonas micra 4+ Bacteroides uniformis 4+ Gemella morbillorum 4+ anaerobic small, Gram Positive Rods 4+ Bacteroides thetaiotaomicron Standard workup is now complete. Bacteriology Remark(s): THIS REPORT IS FINAL =--=--=--=--=--=--=--=--=--= --=--=--=--=--=--=--=--=--=- -=--=--=--=--=--=--=-- Performing Laboratory: Bacteriology Report Performed By: [facility] [CLIA# [id number]] [place] [address] [facility] Jun 21, 2024 06:12 PM LR MICROBIOLOGY RE PORT: Reporting Lab: [facility] [CLIA# [id number]] [place] [address] Accession [UID]: [id number] [[id number]] Received: Jun 21, 2024@18:12 Collection sample: BLOOD [...] -=--=--=--=--=--=--=-- Performing Laboratory: Bacteriology Report Performed By: [facility] [CLIA# [id number]] [place] [address] [facility] Jun 21, 2024 06:11 PM LR MICROBIOLOGY RE PORT: Reporting Lab: [facility] [CLIA# [id number]] [place] [address] Accession [UID]: [id number] [[id number]] Received: Jun 21, 2024@18:11 Collection sample: BLOOD [...] -=--=--=--=--=--=--=-- Performing Laboratory: Bacteriology Report Performed By: [facility] [CLIA# [id number]] [place] [address] [facility] Jun 08, 2024 11:00 AM LR MICROBIOLOGY RE PORT: Reporting Lab: [facility] [CLIA# [id number]] [place] [address] Accession [UID]: [id number] [[id number]] Received: Jun 08, 2024@11:00 Collection sample: URINE Collection date: Jun 08, 2024 11:00 Provider: MARYBETH POWELL Comment on specimen: urine Test(s) ordered: CULTURE & SUSCEPTIBILITY...... completed: Jun 09, 2024 * BACTERIOLOGY FINAL REPORT => Jun 09, 2024 19:12 TECH CODE: [id number] CULTURE RESULTS: ESCHERICHIA COLI - Quantity: >100,000 [...] -=--=--=--=--=--=--=-- Performing Laboratory: Bacteriology Report Performed By: [facility] [CLIA# [id number]] [place] [address] [facility]
--- OUTSIDE RECORDS SUMMARY | 2024-07-16 07:36 | XMS_ITS | Encounter Summary ---
Author Name [facility] [place] [facility] [place] [facility] [place] Address [address] [place] [address] Care Team Providers Care Mainspring Former Name Role Phone JATINDER CABRERA Primary Care [...] PART A Sep 29, 2016 PART A [phone] JUDY WEAVER PATIENT Selected Encounter This section includes the information on record at [place] for the Encounter. Date/Time Encounter Type Encounter Description Reason Pro vider Source Jun 25, 2024 09:24 AM Outpatient Encounter EVENT (HISTORICAL) IHE Encounter [...] 2024 07:00 AM AMBULATORY - NONE [place] [facility] Jun 27, 2024 07:30 AM [facility] Jun 27, 2024 08:00 AM [facility] Jul 03, 2024 05:55 AM [facility] Jul 13, 2024 08:15 AM AMBULATORY - NONE [facility] Active, Pending, and Scheduled Orders This section includes a listing of several types of active, pending, and scheduled orders, including clinic medications orders, diagnostic test orders, procedure orders and consult orders; where the start date of the order is 45 days before the date of the Encounter or 45 days after the date of theEncounter. The data comes from all [facility] facilities. Test Date/Time Test Type Test Details [...] Order TYPE & SCREEN - LAB BLOOD [facility] Jul 03, 2024 12:00 AM Laboratory - Blood Bank Order TYPE & SCREEN - LAB BLOOD [facility] Jul 16, 2024 [...] 12:23 PM Reporting Lab: [facility] [address] Performing Lab: [facility] [address] PHOSPHORUS 3.0 mg/dL 2.3-4.3 Jul 10, 2024 07:16 AM [facility] BASIC METABOLIC PANEL+MG Specimen Type: PLASMA No comment entered. Ordering Provider: JUANCARLOS ECHOLS S Report Released Date/Time: Jul 09, 2024 12:23 PM Reporting Lab: [facility] [address] Performing Lab: [facility] [address] CREATININE 0.7 mg/dL 0.7-1.2 UREA NITROGEN 27 [...] 12:23 PM Reporting Lab: [facility] [address] Performing Lab: [facility] [address] WBC 18.8 H 4.0-11.0 RBC 5.08 4.60-6.20 [...] 06:18 PM Reporting Lab: [facility] [address] Performing Lab: [facility] [address] WBC 15.3 H 4.0-11.0 RBC 4.91 4.60-6.20 [...] 08:41 AM Reporting Lab: [facility] [address] Performing Lab: [facility] [address] URINE COLOR YELLOW SPECIFIC GRAVITY >1.050 H [...] 04:49 PM Reporting Lab: [facility] [address] Performing Lab: [facility] [address] WBC 17.5 H 4.0-11.0 RBC 4.88 4.60-6.20 [...] 04:49 PM Reporting Lab: [facility] [address] Performing Lab: [facility] [address] PHOSPHORUS 2.6 mg/dL 2.3-4.3 Jul 08, 2024 09:54 AM [facility] BASIC METABOLIC PANEL+MG Specimen Type: PLASMA Comment: Specimen received in Lab at: [id number] Ordering Provider: JUANCARLOS ECHOLS Report Released Date/Time: Jul 07, 2024 04:49 PM Reporting Lab: [facility] [address] Performing Lab: [facility] [address] CREATININE 0.9 mg/dL 0.7-1.2 UREA NITROGEN 26 [...] 12:26 PM Reporting Lab: [facility] [address] Performing Lab: [facility] [address] C DIFF TOX B GENE PCR NEGATIVE Negative Jul 07, 2024 07:41 AM [facility] PHOSPHORUS Specimen Type: PLASMA No comment entered. Ordering Provider: JEVON ZAZUETA Report Released Date/Time: Jul 06, 2024 03:44 PM Reporting Lab: [facility] [address] Performing Lab: [facility] [address] PHOSPHORUS 3.1 mg/dL 2.3-4.3 Jul 07, 2024 07:41 AM [facility] BASIC METABOLIC PANEL+MG Specimen Type: PLASMA No comment entered. Ordering Provider: JEVON ZAZUETA Report Released Date/Time: Jul 06, 2024 03:44 PM Reporting Lab: [facility] [address] Performing Lab: [facility] [address] CREATININE 0.9 mg/dL 0.7-1.2 UREA NITROGEN 20 [...] 03:44 PM Reporting Lab: [facility] [address] Performing Lab: [facility] [address] WBC 21.2 H 4.0-11.0 RBC 5.09 4.60-6.20 [...] 01:22 PM Reporting Lab: [facility] [address] Performing Lab: [facility] [address] WBC 18.0 H 4.0-11.0 RBC 4.83 4.60-6.20 [...] 01:22 PM Reporting Lab: [facility] [address] Performing Lab: [facility] [address] PHOSPHORUS 3.6 mg/dL 2.3-4.3 Jul 06, 2024 07:21 AM [facility] BASIC METABOLIC PANEL+MG Specimen Type: PLASMA No comment entered. Ordering Provider: JEVON ZAZUETA Report Released Date/Time: Jul 05, 2024 01:22 PM Reporting Lab: [facility] [address] Performing Lab: [facility] [address] CREATININE 0.7 mg/dL 0.7-1.2 UREA NITROGEN 12 [...] 09:39 AM Reporting Lab: [facility] [address] Performing Lab: [facility] [address] MAGNESIUM 2.0 mg/dL 1.6-2.6 Jul 05, 2024 07:17 AM [facility] PHOSPHORUS Specimen Type: PLASMA No comment entered. Ordering Provider: JUANCARLOS ECHOLS S Report Released Date/Time: Jul 04, 2024 09:39 AM Reporting Lab: [facility] [address] Performing Lab: [facility] [address] PHOSPHORUS 2.0 mg/dL L 2.3-4.3 Jul 05, 2024 07:17 AM [facility] BASIC METABOLIC PANEL+MG Specimen Type: PLASMA No comment entered. Ordering Provider: JUANCARLOS ECHOLS S Report Released Date/Time: Jul 04, 2024 09:39 AM Reporting Lab: [facility] [address] Performing Lab: [facility] [address] CREATININE 0.7 mg/dL 0.7-1.2 UREA NITROGEN 12 [...] 09:39 AM Reporting Lab: [facility] [address] Performing Lab: [facility] [address] WBC 18.3 H 4.0-11.0 RBC 4.49 L [...] 06:31 PM Reporting Lab: [facility] [address] Performing Lab: [facility] [address] PHOSPHORUS 2.8 mg/dL 2.3-4.3 Jul 04, 2024 07:17 AM [facility] BASIC METABOLIC PANEL+MG Specimen Type: PLASMA No comment entered. Ordering Provider: GABINO CAMERON Report Released Date/Time: Jul 03, 2024 06:31 PM Reporting Lab: [facility] [address] Performing Lab: [facility] [address] CREATININE 0.7 mg/dL 0.7-1.2 UREA NITROGEN 16 [...] 06:31 PM Reporting Lab: [facility] [address] Performing Lab: [facility] [address] WBC 20.6 H 4.0-11.0 RBC 4.63 4.60-6.20 [...] 06:31 PM Reporting Lab: [facility] [address] Performing Lab: [facility] [address] WBC 20.6 H 4.0-11.0 RBC 4.63 4.60-6.20 [...] 06:31 PM Reporting Lab: [facility] [address] Performing Lab: [facility] [address] BNP 292 pg/mL H <99 Jul 03, 2024 10:32 PM [facility] FINGERSTICK GLUCOSE Specimen Type: BLOOD Comment: Save Result Nurse Notified Ordering Provider: KATELYNN PERSON Report Released Date/Time: Jul 03, 2024 10:50 PM Reporting Lab: [facility] [address] Performing Lab: [facility] [address] FINGERSTICK GLUCOSE 126 mg/dL H 70-100 Jul 03, 2024 05:33 PM [facility] FINGERSTICK GLUCOSE Specimen Type: BLOOD Comment: Save Result Nurse Notified Ordering Provider: KATELYNN PERSON Report Released Date/Time: Jul 03, 2024 05:46 PM Reporting Lab: [facility] [address] Performing Lab: [facility] [address] FINGERSTICK GLUCOSE 141 mg/dL H 70-100 Jul 03, 2024 02:31 PM [facility] POC ABG/ELECTROLYTES Specimen Type: ARTERIAL BLOOD Comment: FIO2 = 97% Patient Temp: 36.0 C Sample Type = ARTERIAL Ordering Provider: MAZIN ARREDONDO Report Released Date/Time: Jul 03, 2024 01:48 PM Reporting Lab: [facility] [address] Performing Lab: [facility] [address] POC PH 7.387 7.35-7.45 POC PCO2 34.4 [...] 01:48 PM Reporting Lab: [facility] [address] Performing Lab: [facility] [address] POC PH 7.280 L 7.35-7.45 POC PCO2 [...] 04:01 PM Reporting Lab: [facility] [address] Performing Lab: [facility] [address] URINE COLOR YELLOW SPECIFIC GRAVITY 1.031 1.003-1.03 [...] 03:59 PM Reporting Lab: [facility] [address] Performing Lab: [facility] [address] WBC 15.8 H 4.0-11.0 RBC 5.11 4.60-6.20 [...] 06:07 PM Reporting Lab: [facility] [address] Performing Lab: [facility] [address] CREATININE 0.8 mg/dL 0.7-1.2 UREA NITROGEN 13 [...] 06:07 PM Reporting Lab: [facility] [address] Performing Lab: [facility] [address] WBC 15.5 H 4.0-11.0 RBC 4.93 4.60-6.20 [...] 05:51 PM Reporting Lab: [facility] [address] Performing Lab: [facility] [address] CREATININE 0.7 mg/dL 0.7-1.2 UREA NITROGEN 16 [...] 05:51 PM Reporting Lab: [facility] [address] Performing Lab: [facility] [address] WBC 14.9 H 4.0-11.0 RBC 5.09 4.60-6.20 [...] 05:51 PM Reporting Lab: [facility] [address] Performing Lab: [facility] [address] WBC 16.9 H 4.0-11.0 RBC 5.28 4.60-6.20 [...] 05:51 PM Reporting Lab: [facility] [address] Performing Lab: [facility] [address] CREATININE 0.7 mg/dL 0.7-1.2 UREA NITROGEN 17 [...] 05:45 PM Reporting Lab: [facility] [address] Performing Lab: [facility] [address] URINE COLOR YELLOW SPECIFIC GRAVITY 1.041 H [...] 06:07 PM Reporting Lab: [facility] [address] Performing Lab: [facility] [address] POC CREATININE 1.1 mg/dL 0.6-1.3 Jun 21, 2024 05:30 PM [facility] POC ABG/LACTATE Specimen Type: VENOUS BLOOD No comment entered. Ordering Provider: DELIA MARTINEZ Report Released Date/Time: Jun 21, 2024 06:07 PM Reporting Lab: [facility] [address] Performing Lab: [facility] [address] POC PH 7.470 H 7.31-7.41 POC PCO2 [...] 05:30 PM Reporting Lab: [facility] [address] Performing Lab: [facility] [address] .INR 1.2 H 0.8-1.1 .PT 13.9 s H 9.4-12.5 Jun 21, 2024 05:24 PM [facility] LIPASE Specimen Type: PLASMA No comment entered. Ordering Provider: DELIA MARTINEZ Report Released Date/Time: Jun 21, 2024 05:30 PM Reporting Lab: [facility] [address] Performing Lab: [facility] [address] LIPASE 32 U/L <60 Jun 21, 2024 05:24 PM [facility] EXTRA GOLD GEL TUBE Specimen Type: SERUM No comment entered. Ordering Provider: DELIA MARTINEZ Report Released Date/Time: Jun 21, 2024 05:41 PM Reporting Lab: [facility] [address] Performing Lab: [facility] [address] EXTRA GOLD GEL TUBE RECEIVED Jun 21, 2024 05:24 PM [facility] COMPREHENSIVE METABOLIC PANEL+MG Specimen Type: PLASMA No comment entered. Ordering Provider: DELIA MARTINEZ Report Released Date/Time: Jun 21, 2024 05:30 PM Reporting Lab: [facility] [address] Performing Lab: [facility] [address] CREATININE 0.9 mg/dL 0.7-1.2 UREA NITROGEN 29 [...] 05:30 PM Reporting Lab: [facility] [address] Performing Lab: [facility] [address] WBC 21.3 H 4.0-11.0 RBC 5.48 4.60-6.20 [...] 09:02 AM Reporting Lab: [facility] [address] Performing Lab: [facility] [address] .INR 1.0 0.8-1.1 .PT 11.8 s 9.4-12.5 [...] 09:02 AM Reporting Lab: [facility] [address] Performing Lab: [facility] [address] HEMOGLOBIN A1C 4.9 4.0-6.0 Jun 08, 2024 10:59 AM [facility] CBC Specimen Type: BLOOD No comment entered. Ordering Provider: MARYBETH POWELL Report Released Date/Time: May 28, 2024 09:02 AM Reporting Lab: [facility] [address] Performing Lab: [facility] [address] WBC 16.1 H 4.0-11.0 RBC 5.02 4.60-6.20 [...] 09:02 AM Reporting Lab: [facility] [address] Performing Lab: [facility] [address] CREATININE 0.9 mg/dL 0.7-1.2 UREA NITROGEN 15 [...] Source Jun 25, 2024 01:51 AM [facility] Social History: Smoking Status [...] F acility May 15, 2024 08:30 AM [place] 15 YRS OR MORE [facility] [...] 2016 CLINICAL WARNING TIM TERAN CARLOSEDUARDO LOZANO [facility] Radiology Reports: +/- 30 [...] VIEWS PA A ND LAT: FLACA WEAVER [id number] -1950 M Exm Date: JUL 08, 2024@10:09 Req Phys: KATELYNN PERSON Loc: 2KG/07-08-2024@11:49 Img Loc: MAIN X-RAY Service: [place] [address] (Case 24 COMPLETE) CHEST 2 VIEWS PA AND LAT (RAD Detailed) CPT:51215 Reason for Study: Uptrending WBC, POD 5 [...] 08, 2024 Date Verified: JUL 08, 2024 Nozzle Worker E-Sig: Report: CHEST 2 VIEWS PA [...] cardiopulmonary disease. READING PHYSICIAN: Sarbjit Vaughn M.D. -[phone] 07/08/2024 12:46 [facility] National Teleradiology Program [phone] (For Medical Practitioner Use Only) Attention Patients / Veterans: If you have questions or concerns about these test results, please contact your ordering provider or primary care team. Primary Interpreting Staff: RADIOLOGY,OUTSIDE SERVICE, Staff Physician / RADIOLOGY,OUTSIDE SERVICE [facility] Jul 08, 2024 10:[address] (AP) ABDOMEN/PE LVIS W CONTRAST: MEGFLACA YAMIL [id number] -1950 M Exm Date: JUL 08, 2024@10:00 Req Phys: KATELYNN PERSON Pat Loc: 2KG/07-08-2024@12:07 Img Loc: CT IMAGING Service: [place] [address] (Case 22 COMPLETE) CT (AP) ABDOMEN/PELVIS W CONTRAST(CT Detailed) CPT:11439 Contrast Media : Non-ionic Iodinated Reason for [...] PLASMA .CREAT EGFR(CKD-E >90 Ref: >=60 Allergies: ([place] only) TERAZOSIN (Mar 13, 2015) Report Status: Verified Date Reported: JUL 08, 2024 Date Verified: JUL 08, 2024 Nozzle Worker E-Sig: Report: CT (AP) ABDOMEN/PELVIS W [...] as noted above READING PHYSICIAN: Celestino Blanc -[phone] 07/08/2024 13:04 [facility] [phone] (For Medical Practitioner Use Only) Attention Patients / Veterans: If you have questions or concerns about these test results, please contact your ordering provider or primary care team. Primary Interpreting Staff: RADIOLOGY,OUTSIDE SERVICE, Staff Physician / RADIOLOGY,OUTSIDE SERVICE [facility] Jun 22, 2024 11:49 AM ABSCESS DRAIN PLAC EMENT PERITONEAL (P): FLACA WEAVER [id number] -1950 M Exm Date: JUN 22, 2024@11:49 Req Phys: ANGELA HOLDEN Loc: [facility]06-22-2024@17:14 Img Loc: INTERVENTIONAL RADIOLOGY Service: [place] [address] (Case [id number] COMPLETE) IR PERITONEAL/RETROPERITONEAL PER(ANI Detailed) CPT:68634 Reason for Study: diverticulitis with abscess (Case 3570 COMPLETE) IR MOD SEDATION 10-22 MIN (ANI Detailed) CPT:63248 Clinical History: IS NOT under investigation for COVID-19 or is COVID-19 negative 73 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 please place abscess drain. Contact number for responsible provider who can be reached for any questions or notifications of critical findings: [phone] n/a LAST CREATININE 0.9 (06/21/24) Report Status: Verified Date Reported: JUN 22, 2024 Date Verified: JUN 22, 2024 Nozzle Worker E-Sig:/ES/LISA PENDLETON MD Report: PROCEDURES: Placement [...] anesthesia. Using real-time CT fluoroscopy, a 5 Cook Islander BomTrip.comesis catheter was advanced into the collection in the left pelvis. A wire was coiled in the collection. The tract into the collection was dilated to accommodate the 12 [place]er locking pigtail drainage catheter. There was [...] Primary Interpreting Staff: LISA PENDLETON MD, RADIOLOGIST (Nozzle Worker) /JRLISA [facility] Jun 22, 2024 11:[address] NEEDLE PLACEMEN T (P): FLACA WEAVER [id number] -1950 M Exm Date: JUN 22, 2024@11:48 Req Phys: ANGELA HOLDEN Loc: 2K/06-22-2024@17:14 Im Loc: CT IMAGING Service: [place] [address] (Case [id number] COMPLETE) CT SCAN FOR NEEDLE PLACEMENT (CT Detailed) CPT:78714 Reason for Study: l pelvic abscess drain Clinical History: Report Status: Verified Date Reported: JUN 22, 2024 Date Verified: JUN 22, 2024 Nozzle Worker E-Sig:/ES/LISA PENDLETON MD Report: PROCEDURES: Placement [...] anesthesia. Using real-time CT fluoroscopy, a 5 [place] Islander BomTrip.comesis catheter was advanced into the collection in the left pelvis. A wire was coiled in the collection. The tract into the collection was dilated to accommodate the 12 [place]er locking pigtail drainage catheter. There was [...] Primary Interpreting Staff: LISA PENDLETON MD, RADIOLOGIST (Nozzle Worker) /JRT LISA PENDLETON [facility] Jun 21, 2024 06:[address] (AP) ABDOMEN/PE LVIS (P): FLACA WEAVER [id number] -1950 M Exm Date: JUN 21, 2024@18:09 Req Phys: DELIA MARTINEZ Loc: [facility] EM[facility]Y [facility]PT WALK-IN (Re Img Loc: CT IMAGING Service: [place] [address] (Case [id number] COMPLETE) CT (AP) ABDOMEN/PELVIS W CONTRAST(CT Detailed) CPT:58032 Contrast Media : Non-ionic Iodinated Reason for [...] PLASMA .CREAT EGFR(CKD-E >90 Ref: >=60 Allergies: ([place] only) TERAZOSIN (Mar 13, 2015) Defer to [...] 21, 2024 Date Verified: JUN 21, 2024 Nozzle Worker E-Sig:/ALEXI/CARLOS A CUNNINGHAM DO Report: EXAMINATION: CT [...] Interpreting Staff: CARLOS A CUNNINGHAM DO, RADIOLOGIST (Nozzle Worker) /CARLOS A ROWELL [facility] Pathology Reports: [...] COMPLETED $APHDR Reporting Lab: [facility] [CLIA# [id number]] [place] [address] - - - - - - - [...] - PATHOLOGY REPORT Accession No. [id number] - - - - - - - [...] - PATHOLOGY REPORT Accession No. [id number] - - - - - - - [...] Second circumferential surgical margin, en face; E-F: Service Person diverticula; G: Service Person section of mesentery; H: Random sales representative meats section of additional adipose tissue fragment. SS. [...] One colonic tissue ring, bisected transversely. [facility]. ([facility]: Microscopic examination performed. DIAGNOSIS: 1. Colon, sigmoid, sigmoidectomy-- - Diverticulosis with perforation and focal abscess formation 2. Colon, anastomotic rings, excision-- - Viable colonic mucosa without diagnostic abnormality /alexi/ EDUARDO PALOMARES MD STAFF PATHOLOGIST Signed Jul 06, 2024@10:40 Performing Laboratory: Surgical Pathology Report Performed By: [facility] [CLIA# [id number]] [place] [address] $FTR - - - - - - [...] - - FLACA WEAVER STANDARD FORM 515 ID:[id number] SEX:M :1950 AGE: 73 LOC:33315 ADM:Jun DX:DIVERTICULITIS PCP: Jatinder Cabrera /alexi/ EDUARDO PALOMARES MD STAFF PATHOLOGIST Signed: 07/06/2024 10:40 EDUARDO PALOMARES [facility] Jun 22, 2024 01:15 PM LR MICROBIOLOGY RE PORT: Reporting Lab: [facility] [CLIA# [id number]] [place] [address] Accession [UID]: [id number] [[id number]] Received: Jun 22, 2024@13:38 Collection sample: FLUID Collection date: Jun 22, 2024 13:15 Provider: ANGELA HOLDEN Comment on specimen: LLQ ABSCESS, RECEIVED IN ANAEROBIC TRANSPORT VIAL Test(s) ordered: GRAM STAIN.................... completed: Jun 22, 2024 15:03 CULTURE & SUSCEPTIBILITY...... completed: Jun 25, 2024 * BACTERIOLOGY FINAL REPORT => Jun 25, 2024 10:56 TECH CODE: [id number] GRAM STAIN: DIRECT SMEAR of specimen before [...] Bacteriology Report Performed By: [facility] [CLIA# [id number]] [place] [address] [facility] Jun 22, 2024 01:15 PM LR MICROBIOLOGY RE PORT: Reporting Lab: [facility] [CLIA# [id number]] [place] [address] Accession [UID]: [id number] [[id number]] Received: Jun 22, 2024@13:38 Collection sample: FLUID Collection date: Jun 22, 2024 13:15 Provider: ANGELA HOLDEN Comment on specimen: LLQ ABSCESS, RECEIVED IN ANAEROBIC TRANSPORT VIAL Test(s) ordered: ANAEROBIC CULTURE............. completed: Jun 28, 2024 * BACTERIOLOGY FINAL REPORT => Jun 28, 2024 10:08 TECH CODE: [id number] CULTURE RESULTS: HEAVY GROWTH MIXED ANAEROBES Comment: [...] Bacteriology Report Performed By: [facility] [CLIA# [id number]] [place] [address] [facility] Jun 21, 2024 06:12 PM LR MICROBIOLOGY RE PORT: Reporting Lab: [facility] [CLIA# [id number]] [place] [address] Accession [UID]: [id number] [[id number]] Received: Jun 21, 2024@18:12 Collection sample: BLOOD [...] Bacteriology Report Performed By: [facility] [CLIA# [id number]] [place] [address] [facility] Jun 21, 2024 06:11 PM LR MICROBIOLOGY RE PORT: Reporting Lab: [facility] [CLIA# [id number]] [place] [address] Accession [UID]: [id number] [[id number]] Received: Jun 21, 2024@18:11 Collection sample: BLOOD [...] Bacteriology Report Performed By: [facility] [CLIA# [id number]] [place] [address] [facility] Jun 08, 2024 11:00 AM LR MICROBIOLOGY RE PORT: Reporting Lab: [facility] [CLIA# [id number]] [place] [address] Accession [UID]: [id number] [[id number]] Received: Jun 08, 2024@11:00 Collection sample: URINE Collection date: Jun 08, 2024 11:00 Provider: MARYBETH POWELL Comment on specimen: urine Test(s) ordered: CULTURE & SUSCEPTIBILITY...... completed: Jun 09, 2024 * BACTERIOLOGY FINAL REPORT => Jun 09, 2024 19:12 TECH CODE: [id number] CULTURE RESULTS: ESCHERICHIA COLI - Quantity: >100,000 [...] Bacteriology Report Performed By: [facility] [CLIA# [id number]] [place] [address] [facility]
--- OUTSIDE RECORDS SUMMARY | 2024-07-16 07:36 | XMS_ITS | Encounter Summary ---
Author Name [facility] [place] [facility] [facility] [place] Address [address] [place] [address] Care Team Providers Care Testing Analyst Name Role Phone JATINDER CABRERA Primary [...] PART A Sep 29, 2016 PART A [phone] JUDY WEAVER PATIENT Selected Encounter This section includes the information on record at [place] for the Encounter. Date/Time Encounter Type Encounter Description Reason Pro vider Source Jun 24, 2024 01:00 AM Inpatient Visit ADMIN PAT ACTIVTIES (eCertCT) SYSTEM,CIS-ARK IHE Encounter Template Text not used [...] 27, 2024 07:00 AM AMBULATORY - NONE [facility] Jun 27, 2024 07:30 AM AMBULATORY - MEDICINE [facility] Jun 27, 2024 08:00 AM AMBULATORY - MEDICINE [facility] Jul 03, 2024 05:55 AM AMBULATORY - NONE [facility] Jul 13, 2024 08:15 AM AMBULATORY NONE [facility] Active, Pending, and Scheduled Orders This section includes a listing of several types of active, pending, and scheduled orders, including clinic medications orders, diagnostic test orders, procedure orders and consult orders; where the start date of the order is 45 days before the date of the Encounter or 45 days after the date of theEncounter. The data comes from all [facility]. Test Date/Time Test Type Test Details Facility Name May 28, 2024 12:00 AM Laboratory - Blood Bank Order TYPE & SCREEN - LAB BLOOD SP [facility] Jun 08, 2024 09:57 AM Laboratory - Chemi stry Order URINALYSIS URINE WC ONCE [facility] Jun 12, 2024 12:00 AM Laboratory - Chemi stry Order BNP PLASMA SP ONCE [facility] Jun 21, 2024 05:45 PM Laboratory - Blood Bank Order TYPE & SCREEN - LAB BLOOD [facility] Jul 03, 2024 12:00 AM Laboratory - Blood Bank Order TYPE & SCREEN - LAB BLOOD [facility] Jul 16, 2024 12:00 AM Laboratory - Chemi stry Order CBC BLOOD SP ONCE [facility] Jul 17, 2024 12:00 AM Laboratory - Chemi stry Order BASIC METABOLIC PANEL+MG PLASMA SP ONCE [facility] Lab Results: +/- 30 [...] Comment Jul 10, 2024 07:[address] [facility] PHOSPHORUS Specimen Type: PLASMA No comment entered. Ordering Provider: JUANCARLOS ECHOLS Report Released Date/Time: Jul 09, 2024 12:23 PM Reporting Lab: [facility] [address] Performing Lab: [facility] [address] PHOSPHORUS 3.0 mg/dL 2.3-4.3 Jul 10, 2024 07:[address] [facility] BASIC METABOLIC PANEL+MG Specimen Type: PLASMA No comment entered. Ordering Provider: JUANCARLOS ECHOLS S Report Released Date/Time: Jul 09, 2024 12:23 PM Reporting Lab: [facility] [address] Performing Lab: [facility] [address] CREATININE 0.7 mg/dL 0.7-1.2 UREA NITROGEN 27 mg/dL H 8-26 GLUCOSE 104 mg/dL H 70-100 SODIUM 133 mmol/L L 136-145 POTASSIUM 4.3 mmol/L 3.5-5.1 CHLORIDE 102 mmol/L 98-107 CO2 19 mmol/L L 22-29 CALCIUM 10.1 mg/dL 8.4-10.2 MAGNESIUM 1.9 mg/dL 1.6-2.6 ANION GAP 12 mmol/L 5-15 .CREAT EGFR(CKD-EPI) >90 >60 Jul 10, 2024 07:[address] [facility] CBC Specimen Type: BLOOD No comment entered. Ordering Provider: JUANCARLOS ECHOLS S Report Released Date/Time: Jul 09, 2024 12:23 PM Reporting Lab: [facility] [phone] Performing Lab: [facility] [address] WBC 18.8 H 4.0-11.0 RBC 5.08 4.60-6.20 HGB 15.9 g/dL 13.5-17.9 HCT 46.8 41.0-54.0 MCV 92.1 fL 80.0-100.0 MCH 31.3 pg 27.0-33.0 MCHC 34.0 g/dL 32.0-37.5 PLT 479 H 150-400 MPV 10.2 fL 9.1-13.0 RDW 13.7 11.5-14.5 Jul 09, 2024 07:[address] [facility] CBC Specimen Type: BLOOD No comment entered. Ordering Provider: QUYNH WEISS AV Report Released Date/Time: Jul 08, 2024 06:18 PM Reporting Lab: [facility] [address] Performing Lab: [facility] [address] WBC 15.3 H 4.0-11.0 RBC 4.91 4.60-6.20 HGB 15.1 g/dL 13.5-17.9 HCT 45.7 41.0-54.0 MCV 93.1 fL 80.0-100.0 MCH 30.8 pg 27.0-33.0 MCHC 33.0 g/dL 32.0-37.5 PLT 443 H 150-400 MPV 10.0 fL 9.1-13.0 RDW 13.5 11.5-14.5 Jul 08, 2024 10:[address] [facility] URINALYSIS Specimen Type: URINE No comment entered. Ordering Provider: KATELYNN PERSON Report Released Date/Time: Jul 08, 2024 08:41 AM Reporting Lab: [facility] [address] Performing Lab: [facility] [address] URINE COLOR YELLOW SPECIFIC GRAVITY >1.050 H [...] NEGATIVE Jul 08, 2024 09:[address] [facility] CBC Specimen Type: BLOOD Comment: Specimen received in Lab at: 0952 Ordering Provider: JUANCARLOS ECHOLS Report Released Date/Time: Jul 07, 2024 04:49 PM Reporting Lab: [facility] [address] Performing Lab: [facility] [address] WBC 17.5 H 4.0-11.0 RBC 4.88 4.60-6.20 HGB 14.9 g/dL 13.5-17.9 HCT 45.7 41.0-54.0 MCV 93.6 fL 80.0-100.0 MCH 30.5 pg 27.0-33.0 MCHC 32.6 g/dL 32.0-37.5 PLT 472 H 150-400 MPV 10.2 fL 9.1-13.0 RDW 13.7 11.5-14.5 Jul 08, 2024 09:[address] [facility] PHOSPHORUS Specimen Type: PLASMA Comment: Specimen received in Lab at: 0952 Ordering Provider: JUANCARLOS ECHOLS Report Released Date/Time: Jul 07, 2024 04:49 PM Reporting Lab: [facility] [address] Performing Lab: [facility] [address] PHOSPHORUS 2.6 mg/dL 2.3-4.3 Jul 08, 2024 09:[address] [facility] BASIC METABOLIC PANEL+MG Specimen Type: PLASMA Comment: Specimen received in Lab at: 0952 Ordering Provider: JUANCARLOS ECHOLS Report Released Date/Time: Jul 07, 2024 04:49 PM Reporting Lab: [facility] [address] Performing Lab: [facility] [address] CREATININE 0.9 mg/dL 0.7-1.2 UREA NITROGEN 26 mg/dL 8-26 GLUCOSE 128 mg/dL H 70-100 SODIUM 134 mmol/L L 136-145 POTASSIUM 3.4 mmol/L L 3.5-5.1 CHLORIDE 100 mmol/L 98-107 CO2 24 mmol/L 22-29 CALCIUM 9.8 mg/dL 8.4-10.2 MAGNESIUM 1.8 mg/dL 1.6-2.6 ANION GAP 10 mmol/L 5-15 .CREAT EGFR(CKD-EPI) >90 >60 Jul 07, 2024 02:[address] [facility] C DIFF PANEL Specimen Type: FECES No comment entered. Ordering Provider: JEVON ZAZUETA Report Released Date/Time: Jul 07, 2024 12:26 PM Reporting Lab: [facility] [address] Performing Lab: [facility] [phone] C DIFF TOX B GENE PCR NEGATIVE Negative Jul 07, 2024 07:[address] [facility] PHOSPHORUS Specimen Type: PLASMA No comment entered. Ordering Provider: JEVON ZAZUETA Report Released Date/Time: Jul 06, 2024 03:44 PM Reporting Lab: [facility] [phone] Performing Lab: [facility] [address] PHOSPHORUS 3.1 mg/dL 2.3-4.3 Jul 07, 2024 07:[address] [facility] BASIC METABOLIC PANEL+MG Specimen Type: PLASMA No comment entered. Ordering Provider: JEVON ZAZUETA Report Released Date/Time: Jul 06, 2024 03:44 PM Reporting Lab: [facility] [address] Performing Lab: [facility] [address] CREATININE 0.9 mg/dL 0.7-1.2 UREA NITROGEN 20 mg/dL 8-26 GLUCOSE 157 mg/dL H 70-100 SODIUM 136 mmol/L 136-145 POTASSIUM 3.7 mmol/L 3.5-5.1 CHLORIDE 102 mmol/L 98-107 CO2 21 mmol/L L 22-29 CALCIUM 9.8 mg/dL 8.4-10.2 MAGNESIUM 1.9 mg/dL 1.6-2.6 ANION GAP 13 mmol/L 5-15 .CREAT EGFR(CKD-EPI) >90 >60 Jul 07, 2024 07:[address] [facility] CBC Specimen Type: BLOOD No comment entered. Ordering Provider: JEVON ZAZUETA Report Released Date/Time: Jul 06, 2024 03:44 PM Reporting Lab: [facility] [address] Performing Lab: [facility] [address] WBC 21.2 H 4.0-11.0 RBC 5.09 4.60-6.20 HGB 15.9 g/dL 13.5-17.9 HCT 48.3 41.0-54.0 MCV 94.9 fL 80.0-100.0 MCH 31.2 pg 27.0-33.0 MCHC 32.9 g/dL 32.0-37.5 PLT 500 H 150-400 MPV 10.3 fL 9.1-13.0 RDW 13.6 11.5-14.5 Jul 06, 2024 07:[address] [facility] CBC Specimen Type: BLOOD No comment entered. Ordering Provider: JEVON ZAZUETA Report Released Date/Time: Jul 05, 2024 01:22 PM Reporting Lab: [facility] [address] Performing Lab: [facility] [address] WBC 18.0 H 4.0-11.0 RBC 4.83 4.60-6.20 HGB 14.6 g/dL 13.5-17.9 HCT 45.5 41.0-54.0 MCV 94.2 fL 80.0-100.0 MCH 30.2 pg 27.0-33.0 MCHC 32.1 g/dL 32.0-37.5 PLT 368 150-400 MPV 10.4 fL 9.1-13.0 RDW 13.6 11.5-14.5 Jul 06, 2024 07:[address] [facility] PHOSPHORUS Specimen Type: PLASMA No comment entered. Ordering Provider: JEVON ZAZUETA Report Released Date/Time: Jul 05, 2024 01:22 PM Reporting Lab: [facility] [address] Performing Lab: [facility] [address] PHOSPHORUS 3.6 mg/dL 2.3-4.3 Jul 06, 2024 07:[address] [facility] BASIC METABOLIC PANEL+MG Specimen Type: PLASMA No comment entered. Ordering Provider: JEVON ZAZUETA Report Released Date/Time: Jul 05, 2024 01:22 PM Reporting Lab: [facility] [address] Performing Lab: [facility] [address] CREATININE 0.7 mg/dL 0.7-1.2 UREA NITROGEN 12 mg/dL 8-26 GLUCOSE 108 mg/dL H 70-100 SODIUM 138 mmol/L 136-145 POTASSIUM 3.4 mmol/L L 3.5-5.1 CHLORIDE 104 mmol/L 98-107 CO2 20 mmol/L L 22-29 CALCIUM 9.3 mg/dL 8.4-10.2 MAGNESIUM 1.9 mg/dL 1.6-2.6 ANION GAP 14 mmol/L 5-15 .CREAT EGFR(CKD-EPI) >90 >60 Jul 05, 2024 07:[address] [facility] MAGNESIUM Specimen Type: PLASMA No comment entered. Ordering Provider: JUANCARLOS ECHOLS Report Released Date/Time: Jul 04, 2024 09:39 AM Reporting Lab: [facility] [address] Performing Lab: [facility] [address] MAGNESIUM 2.0 mg/dL 1.6-2.6 Jul 05, 2024 07:[address] [facility] PHOSPHORUS Specimen Type: PLASMA No comment entered. Ordering Provider: JUANCARLOS ECHOLS S Report Released Date/Time: Jul 04, 2024 09:39 AM Reporting Lab: [facility] [address] Performing Lab: [facility] [address] PHOSPHORUS 2.0 mg/dL L 2.3-4.3 Jul 05, 2024 07:[address] [facility] BASIC METABOLIC PANEL+MG Specimen Type: PLASMA No comment entered. Ordering Provider: JUANCARLOS ECHOLS S Report Released Date/Time: Jul 04, 2024 09:39 AM Reporting Lab: [facility] [address] Performing Lab: [facility] [address] CREATININE 0.7 mg/dL 0.7-1.2 UREA NITROGEN 12 mg/dL 8-26 GLUCOSE 84 mg/dL 70-100 SODIUM 135 mmol/L L 136-145 POTASSIUM 3.8 mmol/L 3.5-5.1 CHLORIDE 104 mmol/L 98-107 CO2 24 mmol/L 22-29 CALCIUM 9.3 mg/dL 8.4-10.2 MAGNESIUM 2.0 mg/dL 1.6-2.6 ANION GAP 7 mmol/L 5-15 .CREAT EGFR(CKD-EPI) >90 >60 Jul 05, 2024 07:[address] [facility] CBC Specimen Type: BLOOD No comment entered. Ordering Provider: JUANCARLOS ECHOLS S Report Released Date/Time: Jul 04, 2024 09:39 AM Reporting Lab: [facility] [address] Performing Lab: [facility] [address] WBC 18.3 H 4.0-11.0 RBC 4.49 L 4.60-6.20 HGB 14.1 g/dL 13.5-17.9 HCT 43.4 41.0-54.0 MCV 96.7 fL 80.0-100.0 MCH 31.4 pg 27.0-33.0 MCHC 32.5 g/dL 32.0-37.5 PLT 317 150-400 MPV 10.0 fL 9.1-13.0 RDW 13.9 11.5-14.5 Jul 04, 2024 07:[address] [facility] BASIC METABOLIC PANEL+MG Specimen Type: PLASMA No comment entered. Ordering Provider: GABINO CAMERON Report Released Date/Time: Jul 03, 2024 06:31 PM Reporting Lab: [facility] [address] Performing Lab: [facility] [address] CREATININE 0.7 mg/dL 0.7-1.2 UREA NITROGEN 16 mg/dL 8-26 GLUCOSE 129 mg/dL H 70-100 SODIUM 137 mmol/L 136-145 POTASSIUM 3.7 mmol/L 3.5-5.1 CHLORIDE 107 mmol/L 98-107 CO2 22 mmol/L 22-29 CALCIUM 9.0 mg/dL 8.4-10.2 MAGNESIUM 1.9 mg/dL 1.6-2.6 ANION GAP 8 mmol/L 5-15 .CREAT EGFR(CKD-EPI) >90 >60 Jul 04, 2024 07:[address] [facility] PHOSPHORUS Specimen Type: PLASMA No comment entered. Ordering Provider: GABINO CAMERON Report Released Date/Time: Jul 03, 2024 06:31 PM Reporting Lab: [facility] [address] Performing Lab: [facility] [address] PHOSPHORUS 2.8 mg/dL 2.3-4.3 Jul 04, 2024 07:[address] [facility] CBC Specimen Type: BLOOD No comment entered. Ordering Provider: GABINO CAMERON Report Released Date/Time: Jul 03, 2024 06:31 PM Reporting Lab: [facility] [address] Performing Lab: [facility] [address] WBC 20.6 H 4.0-11.0 RBC 4.63 4.60-6.20 HGB 14.2 g/dL 13.5-17.9 HCT 43.4 41.0-54.0 MCV 93.7 fL 80.0-100.0 MCH 30.7 pg 27.0-33.0 MCHC 32.7 g/dL 32.0-37.5 PLT 329 150-400 MPV 10.4 fL 9.1-13.0 RDW 13.8 11.5-14.5 Jul 04, 2024 07:[address] [facility] CBC & DIFF Specimen Type: BLOOD Comment: Manual Differential Performed Ordering Provider: GABINO CAMERON Report Released Date/Time: Jul 03, 2024 06:31 PM Reporting Lab: [facility] [address] Performing Lab: [facility] [address] WBC 20.6 H 4.0-11.0 RBC 4.63 4.60-6.20 [...] PRESENT Jul 04, 2024 07:[address] [facility] BNP Specimen Type: PLASMA No comment entered. Ordering Provider: GABINO CAMERON Report Released Date/Time: Jul 03, 2024 06:31 PM Reporting Lab: [facility] [address] Performing Lab: [facility] [address] BNP 292 pg/mL H <99 Jul 03, 2024 10:[address] [facility] FINGERSTICK GLUCOSE Specimen Type: BLOOD Comment: Save Result Nurse Notified Ordering Provider: KATELYNN PERSON Report Released Date/Time: Jul 03, 2024 10:50 PM Reporting Lab: [facility] [address] Performing Lab: [facility] [address] FINGERSTICK GLUCOSE 126 mg/dL H 70-100 Jul 03, 2024 05:[address] [facility] FINGERSTICK GLUCOSE Specimen Type: BLOOD Comment: Save Result Nurse Notified Ordering Provider: KATELYNN PERSON Report Released Date/Time: Jul 03, 2024 05:46 PM Reporting Lab: [facility] [address] Performing Lab: [facility] [address] FINGERSTICK GLUCOSE 141 mg/dL H 70-100 Jul 03, 2024 02:[address] [facility] POC ABG/ELECTROLYTES Specimen Type: ARTERIAL BLOOD Comment: FIO2 = 97% Patient Temp: 36.0 C Sample Type = ARTERIAL Ordering Provider: MAZIN ARREDONDO Report Released Date/Time: Jul 03, 2024 01:48 PM Reporting Lab: [facility] [address] Performing Lab: [facility] [address] POC PH 7.387 7.35-7.45 POC PCO2 34.4 [...] 80.0-105.0 Jul 03, 2024 01:[address] [facility] POC ABG/ELECTROLYTES Specimen Type: ARTERIAL BLOOD Comment: FIO2 = 53% Patient Temp: 36.2 C Sample Type = ARTERIAL Ordering Provider: MAZIN ARREDONDO Report Released Date/Time: Jul 03, 2024 01:48 PM Reporting Lab: [facility] [address] Performing Lab: [facility] [address] POC PH 7.280 L 7.35-7.45 POC PCO2 [...] 80.0-105.0 Jul 03, 2024 06:[address] [facility] URINALYSIS Specimen Type: URINE No comment entered. Ordering Provider: MARYBETH PWOELL Report Released Date/Time: Jun 12, 2024 04:01 PM Reporting Lab: [facility] [address] Performing Lab: [facility] [address] URINE COLOR YELLOW SPECIFIC GRAVITY 1.031 1.003-1.03 [...] NEGATIVE Jul 03, 2024 06:[address] [facility] CBC Specimen Type: BLOOD No comment entered. Ordering Provider: MARYBETH POWELL Report Released Date/Time: Jun 12, 2024 03:59 PM Reporting Lab: [facility] [address] Performing Lab: [facility] [address] WBC 15.8 H 4.0-11.0 RBC 5.11 4.60-6.20 HGB 16.1 g/dL 13.5-17.9 HCT 49.1 41.0-54.0 MCV 96.1 fL 80.0-100.0 MCH 31.5 pg 27.0-33.0 MCHC 32.8 g/dL 32.0-37.5 PLT 357 150-400 MPV 9.8 fL 9.1-13.0 RDW 13.7 11.5-14.5 Jun 24, 2024 09:[address] [facility] BASIC METABOLIC PANEL+MG Specimen Type: PLASMA Comment: Specimen received in Lab at: 0948 Ordering Provider: JEVON ZAZUETA Report Released Date/Time: Jun 23, 2024 06:07 PM Reporting Lab: [facility] [address] Performing Lab: [facility] [address] CREATININE 0.8 mg/dL 0.7-1.2 UREA NITROGEN 13 mg/dL 8-26 GLUCOSE 135 mg/dL H 70-100 SODIUM 135 mmol/L L 136-145 POTASSIUM 3.6 mmol/L 3.5-5.1 CHLORIDE 103 mmol/L 98-107 CO2 24 mmol/L 22-29 CALCIUM 9.2 mg/dL 8.4-10.2 MAGNESIUM 1.9 mg/dL 1.6-2.6 ANION GAP 8 mmol/L 5-15 .CREAT EGFR(CKD-EPI) >90 >60 Jun 24, 2024 09:[address] [facility] CBC Specimen Type: BLOOD Comment: Specimen received in Lab at: 0948 Ordering Provider: JEVON ZAZUETA Report Released Date/Time: Jun 23, 2024 06:07 PM Reporting Lab: [facility] [address] Performing Lab: [facility] [address] WBC 15.5 H 4.0-11.0 RBC 4.93 4.60-6.20 HGB 15.2 g/dL 13.5-17.9 HCT 46.5 41.0-54.0 MCV 94.3 fL 80.0-100.0 MCH 30.8 pg 27.0-33.0 MCHC 32.7 g/dL 32.0-37.5 PLT 223 150-400 MPV 11.4 fL 9.1-13.0 RDW 13.9 11.5-14.5 Jun 23, 2024 07:[address] [facility] COMPREHENSIVE METABOLIC PANEL+MG Specimen Type: PLASMA No comment entered. Ordering Provider: JEVON ZAZUETA Report Released Date/Time: Jun 22, 2024 05:51 PM Reporting Lab: [facility] [address] Performing Lab: [facility] [address] CREATININE 0.7 mg/dL 0.7-1.2 UREA NITROGEN 16 [...] >60 Jun 23, 2024 07:[address] [facility] CBC & DIFF Specimen Type: BLOOD Comment: Automated Differential Performed Ordering Provider: JEVON ZAZUETA Report Released Date/Time: Jun 22, 2024 05:51 PM Reporting Lab: [facility] [address] Performing Lab: [facility] [address] WBC 14.9 H 4.0-11.0 RBC 5.09 4.60-6.20 [...] 0.0-0.1 Jun 22, 2024 06:[address] [facility] COMPREHENSIVE METABOLIC PANEL+MG Specimen Type: PLASMA No comment entered. Ordering Provider: JEVON ZAZUETA Report Released Date/Time: Jun 22, 2024 05:51 PM Reporting Lab: [facility] [address] Performing Lab: [facility] [address] CREATININE 0.7 mg/dL 0.7-1.2 UREA NITROGEN 17 [...] >60 Jun 22, 2024 06:[address] [facility] CBC Specimen Type: BLOOD No comment entered. Ordering Provider: JEVON ZAZUETA Report Released Date/Time: Jun 22, 2024 05:51 PM Reporting Lab: [facility] [address] Performing Lab: [facility] [address] WBC 16.9 H 4.0-11.0 RBC 5.28 4.60-6.20 HGB 16.9 g/dL 13.5-17.9 HCT 50.4 41.0-54.0 MCV 95.5 fL 80.0-100.0 MCH 32.0 pg 27.0-33.0 MCHC 33.5 g/dL 32.0-37.5 PLT 223 150-400 MPV 10.9 fL 9.1-13.0 RDW 14.0 11.5-14.5 Jun 21, 2024 06:[address] [facility] URINALYSIS Specimen Type: URINE No comment entered. Ordering Provider: DELIA MARTINEZ Report Released Date/Time: Jun 21, 2024 05:45 PM Reporting Lab: [facility] [address] Performing Lab: [facility] [address] URINE COLOR YELLOW SPECIFIC GRAVITY 1.041 H [...] NEGATIVE Jun 21, 2024 05:[address] [facility] POC CREATININE Specimen Type: BLOOD No comment entered. Ordering Provider: DELIA MARTINEZ Report Released Date/Time: Jun 21, 2024 06:07 PM Reporting Lab: [facility] [address] Performing Lab: [facility] [address] POC CREATININE 1.1 mg/dL 0.6-1.3 Jun 21, 2024 05:[address] [facility] POC ABG/LACTATE Specimen Type: VENOUS BLOOD No comment entered. Ordering Provider: DELIA MARTINEZ Report Released Date/Time: Jun 21, 2024 06:07 PM Reporting Lab: [facility] [address] Performing Lab: [facility] [address] POC PH 7.470 H 7.31-7.41 POC PCO2 31.2 mm[Hg] L 41.00-51 .0 0 POC PO2 46 mm[Hg] H 35.0-40.0 POC TCO2 24 mmol/L 24.0-29.0 POC HCO3 22.7 mmol/L L 23.0-28.0 POC BE ECT -1 mmol/L POC SO2 85 H 70-75 POC LACTATE 1.85 mmol/L 0.90-1.70 Jun 21, 2024 05:[address] [facility] PROTHROMBIN TIME/INR Specimen Type: PLASMA No comment entered. Ordering Provider: DELIA MARTINEZ Report Released Date/Time: Jun 21, 2024 05:30 PM Reporting Lab: [facility] [address] Performing Lab: [facility] [address] .INR 1.2 H 0.8-1.1 .PT 13.9 s H 9.4-12.5 Jun 21, 2024 05:[address] [facility] LIPASE Specimen Type: PLASMA No comment entered. Ordering Provider: DELIA MARTINEZ Report Released Date/Time: Jun 21, 2024 05:30 PM Reporting Lab: [facility] [address] Performing Lab: [facility] [address] LIPASE 32 U/L <60 Jun 21, 2024 05:[address] [facility] EXTRA GOLD GEL TUBE Specimen Type: SERUM No comment entered. Ordering Provider: DELIA MARTINEZ Report Released Date/Time: Jun 21, 2024 05:41 PM Reporting Lab: [facility] [address] Performing Lab: [facility] [address] EXTRA GOLD GEL TUBE RECEIVED Jun 21, 2024 05:[address] [facility] COMPREHENSIVE METABOLIC PANEL+MG Specimen Type: PLASMA No comment entered. Ordering Provider: DELIA MARTINEZ Report Released Date/Time: Jun 21, 2024 05:30 PM Reporting Lab: [facility] [phone] Performing Lab: [facility] [phone] CREATININE 0.9 mg/dL 0.7-1.2 UREA NITROGEN 29 [...] <0.5 Jun 21, 2024 05:[address] [facility] CBC & DIFF Specimen Type: BLOOD Comment: Manual Differential Performed Ordering Provider: DELIA MARTINEZ Report Released Date/Time: Jun 21, 2024 05:30 PM Reporting Lab: [facility] [phone] Performing Lab: [facility] [phone] WBC 21.3 H 4.0-11.0 RBC 5.48 4.60-6.20 [...] PRESENT Jun 08, 2024 10:[address] [facility] PROTHROMBIN TIME/INR Specimen Type: PLASMA No comment entered. Ordering Provider: MARYBETH POWELL Report Released Date/Time: May 28, 2024 09:02 AM Reporting Lab: [facility] [phone] Performing Lab: [facility] [phone] .INR 1.0 0.8-1.1 .PT 11.8 s 9.4-12.5 Jun 08, 2024 10:[address] [facility] HEMOGLOBIN A1C Specimen Type: [...] May 28, 2024 09:02 AM Reporting Lab: [facility] [phone] Performing Lab: [facility] [phone] HEMOGLOBIN A1C 4.9 4.0-6.0 Jun 08, 2024 10:[address] [facility] CBC Specimen Type: BLOOD No comment entered. Ordering Provider: MARYBETH POWELL Report Released Date/Time: May 28, 2024 09:02 AM Reporting Lab: [facility] [phone] Performing Lab: [facility] [phone] WBC 16.1 H 4.0-11.0 RBC 5.02 4.60-6.20 HGB 16.0 g/dL 13.5-17.9 HCT 47.1 41.0-54.0 MCV 93.8 fL 80.0-100.0 MCH 31.9 pg 27.0-33.0 MCHC 34.0 g/dL 32.0-37.5 PLT 228 150-400 MPV 10.3 fL 9.1-13.0 RDW 14.6 H 11.5-14.5 Jun 08, 2024 10:[address] [facility] BASIC METABOLIC PANEL+MG Specimen Type: PLASMA No comment entered. Ordering Provider: MARYBETH POWELL Report Released Date/Time: May 28, 2024 09:02 AM Reporting Lab: [facility] [phone] Performing Lab: [facility] [phone] CREATININE 0.9 mg/dL 0.7-1.2 UREA NITROGEN 15 [...] 2024 08:30 AM VA-[employer]BACCO FORMER USER [facility] Tobacco Use History This section includes a history of the smoking, or tobacco-related health factors, that were collected on or before the date of the Encounter. The data comes from the [place] facility where the Encounter took place. Date/Time Smoking Status/Tobacco Use Comment F acility May 15, 2024 08:30 AM VA-TOBACCO QUIT [address] [facility] May 06, 2023 11:30 AM VA-TOBACCO FORMER USER [facility] May 06, 2023 11:30 AM VA-TOBACCO QUIT [address] [facility] Jun 04, 2022 09:00 AM VA-TOBACCO FORMER USER [facility] Jun 04, 2022 09:00 AM VA-TOBACCO QUIT [address] [facility] Jul 10, 2021 08:00 AM VA-TOBACCO FORMER USER [facility] Jul 10, 2021 08:00 AM VA-TOBACCO QUIT 5 TO < [address] [facility] May 23, 2020 08:30 AM VA-TOBACCO FORMER USER [facility] May 23, 2020 08:30 AM VA-TOBACCO QUIT 5 TO < [address] [facility] Mar 20, 2019 04:03 PM VA-TOBACCO FORMER USER [facility] Mar 20, 2019 04:03 PM VA-TOBACCO QUIT 5 TO < [address] [facility] Mar 21, 2018 08:13 AM FORMER TOBACCO USER 7Y OR [facility] Feb 24, 2017 09:24 AM FORMER TOBACCO USER 7Y OR [facility] January 07, 2016 08:01 AM FORMER TOBACCO USE >1Y <7Y [facility] Feb 03, 2015 07:58 AM FORMER TOBACCO USE <1Y [facility] Feb 26, 2014 08:41 AM CURRENT TOBACCO USER [facility] May 13, 2011 01:45 PM CURRENT TOBACCO USER [facility] Advance Directives: All historical [...] Provider Source Mar 23, 2016 CLINICAL WARNING PARULBRENDON MINNEEDUARDO LOZANO [facility] Radiology Reports: +/- 30 [...] 2 VIEWS PA AND LAT: FLACA WEAVER [id number] -1950 M Exm Date: JUL 08, 2024@10:09 Req Phys: KATELYNN PERSON Loc: 2KG/07-08-2024@11:49 Img Loc: MAIN X-RAY Service: [place] [address] (Case 24 COMPLETE) CHEST 2 VIEWS PA AND LAT (RAD Detailed) CPT:02573 Reason for Study: Uptrending WBC, POD 5 Clinical History: Tyrone IS NOT under investigation for COVID-19 or is COVID-19 negative POD 5, work up for uptrending wbc Responsible provider name and phone number to notify for critical findings if other than user placing the order and pager listed below: User placing orders pager: Katelynn Person LAST CREATININE 0.9 (07/07/24) Report Status: Verified Date Reported: JUL 08, 2024 Date Verified: JUL 08, 2024 Manager [employer] E-Sig: Report: CHEST 2 VIEWS PA AND [...] cardiopulmonary disease. READING PHYSICIAN: Sarbjit Vaughn M.D. -[phone] 07/08/2024 12:46 EST [facility] National Teleradiology Program [phone] (For Medical Practitioner Use Only) Attention Patients / Veterans: If you have questions or concerns about these test results, please contact your ordering provider or primary care team. Primary Interpreting Staff: RADIOLOGY,OUTSIDE SERVICE, Staff Physician / RADIOLOGY,OUTSIDE SERVICE [facility] Jul 08, 2024 10:[address] (AP) ABDOMEN/PELVIS W CONTRAST: FLACA WEAVER [id number] -1950 [facility] Date: JUL 08, 2024@10:00 Req Phys: KATELYNN PERSON Pat Loc: 2KG/07-08-2024@12:07 Img Loc: CT IMAGING Service: [place] [address] (Case 22 COMPLETE) CT (AP) ABDOMEN/PELVIS W CONTRAST(CT Detailed) CPT:83165 Contrast Media : Non-ionic Iodinated Reason for [...] PLASMA .CREAT EGFR(CKD-E >90 Ref: >=60 Allergies: (Bogard only) TERAZOSIN (Mar 13, 2015) Report Status: Verified Date Reported: JUL 08, 2024 Date Verified: JUL 08, 2024 Manager [employer] E-Sig: Report: CT (AP) ABDOMEN/PELVIS W CONTRAST [...] as noted above READING PHYSICIAN: Celestino Blanc -[phone] 07/08/2024 13:04 [facility] [employer] Program [phone] (For Medical Practitioner Use Only) Attention Patients / Veterans: If you have questions or concerns about these test results, please contact your ordering provider or primary care team. Primary Interpreting Staff: RADIOLOGY,OUTSIDE SERVICE, Staff Physician / RADIOLOGY,OUTSIDE SERVICE [facility] Jun 22, 2024 11:49 AM ABSCESS DRAIN PLACEMENT PERITONEAL (P): FLACA WEAVER [id number] -1950 M Exm Date: JUN 22, 2024@11:49 Req Phys: ANGELA HOLDEN [facility] Loc: [facility]06-22-2024@17:14 Img Loc: INTERVENTIONAL RADIOLOGY Service: [place] [address] (Case [id number] COMPLETE) IR PERITONEAL/RETROPERITONEAL PER(ANI Detailed) CPT:41808 Reason for Study: diverticulitis with abscess (Case [id number] COMPLETE) IR MOD SEDATION 10-22 MIN (ANI Detailed) CPT:16453 Clinical History: IS NOT under investigation for COVID-19 or is COVID-19 negative 73 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 please place abscess drain. Contact number for responsible provider who can be reached for any questions or notifications of critical findings: [phone] n/a LAST CREATININE 0.9 (06/21/24) Report Status: Verified Date Reported: JUN 22, 2024 Date Verified: JUN 22, 2024 [employer] E-Sig:/ES/LISA PENDLETON MD Report: PROCEDURES: Placement of [...] obtained. A pre-procedural Time-Out was performed per [facility] policy. The patient was placed in the supine position on the CT table. Preprocedural scan performed. The suprapubic region/lower abdominal wall was sterilely prepped and draped in the usual fashion.1% lidocaine without epinephrine was used for local anesthesia. Using real-time CT fluoroscopy, a 5 [employer] catheter was advanced into the collection in the left pelvis. A wire was coiled in the collection. The tract into the collection was dilated to accommodate the 12 Russian locking pigtail drainage catheter. There was return [...] PENDLETON MD, RADIOLOGIST (Carolin) /JRT LISA PENDLETON [facility] Jun 22, 2024 11:[address] NEEDLE PLACEMENT (P): FLACA WEAVER [id number] -1950 M Exm Date: JUN 22, 2024@11:48 Req Phys: ANGELA HOLDEN [facility] Loc: [facility]06-22-2024@17:14 Img Loc: CT IMAGING Service: [place] [address] (Case [id number] COMPLETE) CT SCAN FOR NEEDLE PLACEMENT (CT Detailed) CPT:00910 Reason for Study: l pelvic abscess drain Clinical History: Report Status: Verified Date Reported: JUN 22, 2024 Date Verified: JUN 22, 2024 Manager [employer] E-Sig:/ES/LISA PENDLETON MD Report: PROCEDURES: Placement of [...] obtained. A pre-procedural Time-Out was performed per [facility] policy. The patient was placed in the supine position on the CT table. Preprocedural scan performed. The suprapubic region/lower abdominal wall was sterilely prepped and draped in the usual fashion.1% lidocaine without epinephrine was used for local anesthesia. Using real-time CT fluoroscopy, a 5 [employer] catheter was advanced into the collection in the left pelvis. A wire was coiled in the collection. The tract into the collection was dilated to accommodate the 12 Russian locking pigtail drainage catheter. There was return [...] Primary Interpreting Staff: LISA PENDLETON MD, RADIOLOGIST (Manager Solar) /JRT LISA PENDLETON [facility] Jun 21, 2024 06:[address] (AP) ABDOMEN/PELVIS (P): FLACA WEAVER [id number] -1950 M Exm Date: JUN 21, 2024@18:09 Req Phys: DELIA MARTINEZ Loc: [facility] EMERGENCY DEPT WALK-IN (Re Img Loc: CT IMAGING Service: [place] [address] (Case [id number] COMPLETE) CT (AP) ABDOMEN/PELVIS W CONTRAST(CT Detailed) CPT:24938 Contrast Media : Non-ionic Iodinated Reason for [...] PLASMA .CREAT EGFR(CKD-E >90 Ref: >=60 Allergies: ([facility] only) TERAZOSIN (Mar 13, 2015) Defer to [...] 21, 2024 Date Verified: JUN 21, 2024 Manager [employer] E-Sig:/ES/CARLOS A CUNNINGHAM DO Report: EXAMINATION: CT [...] Interpreting Staff: CARLOS A CUNNINGHAM DO, RADIOLOGIST (Manager Solar) /KMB CARLOS A CUNNINGHAM [facility] May 25, 2024 09:00 AM IR FISTULOGRAM OR SINOGRAM : FLACA WEAVER [id number] -1950 M Ex Date: MAY 25, 2024@09:00 Req Phys: AMINTA PRUITT Loc: MSP XRAY INTERVENTIONAL RADIO Img Loc: INTERVENTIONAL RADIOLOGY Service: [place] [address] (Case [id number] COMPLETE) IR FISTULOGRAM OR SINOGRAM (ANI Detailed) CPT:16735 Contrast Media : unspecified contrast media Reason [...] 25, 2024 Date Verified: MAY 25, 2024 Manager [employer] E-Sig:/ES/DAVID BURNS MD Report: PROCEDURES 05/25/2024 9:48 [...] Primary Interpreting Staff: DAVID BURNS MD, RADIOLOGIST (Manager Solar) /CSS DAVID BURNS [facility] May 25, 2024 08:[address] (AP) ABDOMEN/PELVIS (P): FLACA WEAVER [id number] -1950 M Exm Date: MAY 25, 2024@08:23 Req Phys: DAVID BURNS Pat Loc: MSP XRAY INTERVENTIONAL RADIO Img Loc: CT IMAGING Service: [place] [address] (Case [id number] COMPLETE) CT (AP) ABDOMEN/PELVIS W/O CONTRA(CT Detailed) CPT:90318 Reason for Study: assess abscess and possible [...] PLASMA .CREAT EGFR(CKD-E >90 Ref: >=60 Allergies: ([facility]ard only) TERAZOSIN (Mar 13, 2015) Report Status: Verified Date Reported: MAY 25, 2024 Date Verified: MAY 25, 2024 Manager [employer] E-Sig:/ES/JESSENIA GOODMAN MD Report: EXAM: CT abdomen and pelvis without intravenous contrast. 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 TECHNIQUE: Helical acquisition of image data was performed for the abdomen and pelvis without intravenous contrast. Dose: 512.57 mGy*cm COMPARISON: CT abdomen pelvis with contrast 05/11/[address] abdomen pelvis 04/23/2024.; CT abdomen pelvis 05/05/2020 FINDINGS: ORTHOPHOTOGRAPHY TECHNICIAN: Pigtail catheter projecting over the left [...] Primary Interpreting Staff: JESSENIA GOODMAN MD, RADIOLOGIST (Manager Solar) Primary Interpreting Resident: YOHANNES MELO DO, PHYSICIST CRYOGENICS /JESSENIA LOUIE [facility] Pathology Reports: +/- 30 [...] URGENCY: STATUS: COMPLETED $APHDR Reporting Lab: [facility] [CLIA# [id number]] [place] [address] - - - - - - - [...] - PATHOLOGY REPORT Accession No. [id number] - - - - - - - [...] - PATHOLOGY REPORT Accession No. [id number] - - - - - - - [...] Second circumferential surgical margin, en face; E-F: Carton Wrapper diverticula; G: Carton Wrapper section of mesentery; H: Random customer care representative section of additional adipose tissue fragment. [...] One colonic tissue ring, bisected transversely. SS. (D)[facility] MICROSCOPIC DESCRIPTION: Microscopic examination performed. DIAGNOSIS: 1. Colon, sigmoid, sigmoidectomy-- - Diverticulosis with perforation and focal abscess formation 2. Colon, anastomotic rings, excision-- - Viable colonic mucosa without diagnostic abnormality /alexi/ EDUARDO PALOMARES MD STAFF PATHOLOGIST Signed Jul 06, 2024@10:40 Performing Laboratory: Surgical Pathology Report Performed By: [facility] [CLIA# [id number]] [place] [address] $FTR - - - - - - - - - - - - - - - - - - - - - - - - - - - - - - - - - - - - - - - - (End of report) EDUARDO PALOMARES MD [facility] Date Jul 06, 2024 - - - - - - - - - - - - - - - - - - - - - - - - - - - - - - - - - - - - - - - - FLACA WEAVER STANDARD FORM 515 ID:[id number] SEX:M :1950 AGE: 73 LOC:44831 ADM:Jun DX:DIVERTICULITIS PCP: Jatinder Cabrera /alexi/ EDUARDO PALOMARES MD STAFF PATHOLOGIST Signed: 07/06/2024 10:[address] [facility] Jun 22, 2024 01:15 PM LR MICROBIOLOGY RE PORT: Reporting Lab: [facility] [CLIA# [id number]] [place] [address] Accession [UID]: [id number] [[id number]] Received: Jun 22, 2024@13:38 Collection sample: FLUID Collection date: Jun 22, 2024 13:15 Provider: ANGELA HOLDEN Comment on specimen: LLQ ABSCESS, RECEIVED IN ANAEROBIC TRANSPORT VIAL Test(s) ordered: GRAM STAIN.................... completed: Jun 22, 2024 15:03 CULTURE & SUSCEPTIBILITY...... completed: Jun 25, 2024 * BACTERIOLOGY FINAL REPORT => Jun 25, 2024 10:56 TECH CODE: [id number] GRAM STAIN: DIRECT SMEAR of specimen before [...] Performing Laboratory: Bacteriology Report Performed By: [facility] [CLIA# [id number]] [place] [address] [facility] Jun 22, 2024 01:15 PM LR MICROBIOLOGY RE PORT: Reporting Lab: [facility] [CLIA# [id number]] [place] [address] Accession [UID]: [id number] [[id number]] Received: Jun 22, 2024@13:38 Collection sample: FLUID Collection date: Jun 22, 2024 13:15 Provider: ANGELA HOLDEN Comment on specimen: LLQ ABSCESS, RECEIVED IN ANAEROBIC TRANSPORT VIAL Test(s) ordered: ANAEROBIC CULTURE............. completed: Jun 28, 2024 * BACTERIOLOGY FINAL REPORT => Jun 28, 2024 10:08 TECH CODE: [id number] CULTURE RESULTS: HEAVY GROWTH MIXED ANAEROBES Comment: including the followin+ Bacteroides fragilis 4+ Bacteroides vulgatus 4+ Clostridium innocuum Beta-lactamase negative 4+ Bacteroides caccae 4+ Parvimonas micra 4+ Bacteroides uniformis 4+ Gemella morbillorum 4+ anaerobic small, Gram Positive Rods 4+ Bacteroides thetaiotaomicron Standard workup is now complete. Bacteriology Remark(s): THIS REPORT IS FINAL =--=--=--=--=--=--=--=--=--= --=--=--=--=--=--=--=--=--=- -=--=--=--=--=--=--=-- Performing Laboratory: Bacteriology Report Performed By: [facility] [CLIA# [id number]] [place] [address] [facility] Jun 21, 2024 06:12 PM LR MICROBIOLOGY RE PORT: Reporting Lab: [facility] [CLIA# [id number]] [place] [address] Accession [UID]: [id number] [[id number]] Received: Jun 21, 2024@18:12 Collection sample: BLOOD [...] Performing Laboratory: Bacteriology Report Performed By: [facility] [CLIA# [id number]] [place] [address] [facility] Jun 21, 2024 06:11 PM LR MICROBIOLOGY RE PORT: Reporting Lab: [facility] [CLIA# [id number]] [place] [address] Accession [UID]: [id number] [[id number]] Received: Jun 21, 2024@18:11 Collection sample: BLOOD [...] Performing Laboratory: Bacteriology Report Performed By: [facility] [CLIA# [id number]] [place] [address] [facility] Jun 08, 2024 11:00 AM LR MICROBIOLOGY RE PORT: Reporting Lab: [facility] [CLIA# [id number]] [place] [address] Accession [UID]: [id number] [[id number]] Received: Jun 08, 2024@11:00 Collection sample: URINE Collection date: Jun 08, 2024 11:00 Provider: MARYBETH POWELL Comment on specimen: urine Test(s) ordered: CULTURE & SUSCEPTIBILITY...... completed: Jun 09, 2024 * BACTERIOLOGY FINAL REPORT => Jun 09, 2024 19:12 TECH CODE: [id number] CULTURE RESULTS: ESCHERICHIA COLI - Quantity: >100,000 [...] Performing Laboratory: Bacteriology Report Performed By: [facility] [CLIA# [id number]] [place] [address] [facility] Encounter Notes: All associated encounter notes This section contains the clinical notes associated to the Encounter. Date/Time Encounter Note(s) Provider Source Jun 24, 2024 01:00 AM CRITICAL CARE UNIT NOTE: LOCAL TITLE: ICCA INPATIENT FLOWSHEET STANDARD TITLE: CRITICAL CARE UNIT NOTE DATE OF NOTE: JUN 24, 2024@01:00 ENTRY DATE: JUN 25, 2024@14:39:14 AUTHOR: PETERSONMahalo EXP COSIGNER: URGENCY: STATUS: COMPLETED This is a place aranda only. Please see Jobbr to view document. /es/ [employer]IS[employer] SYSTEM ICU DOCUMENT IMPORT Signed: 06/25/2024 14:39 SYSTEM,[employer]-ARK [facility] Jun 24, 2024 01:00 AM CRITICAL CARE UNIT NOTE: LOCAL TITLE: [facility]A RESPIRATORY THERAPY FLOWSHEET STANDARD TITLE: CRITICAL CARE UNIT NOTE DATE OF NOTE: JUN 24, 2024@01:00 ENTRY DATE: JUN 25, 2024@15:09:51 AUTHOR: [employer]ARK EXP COSIGNER: URGENCY: STATUS: COMPLETED This is a place aranda only. Please see Jobbr to view document. /es/ [employer] SYSTEM ICU DOCUMENT IMPORT Signed: 06/25/2024 15:09 SYSTEM,[employer] [facility]
--- OUTSIDE RECORDS SUMMARY | 2024-07-16 07:36 | XMS_ITS | Encounter Summary ---
Author Name [facility] [place] [facility] [place] Address [address] [place] [address] Care Team Providers Care Signalman Name Role Phone JATINDER BENITEZ Primary Care [...] PART A Sep 29, 2016 PART A [phone] JUDY WEAVER PATIENT Selected Encounter This section [...] Mar 23, 2016 CLINICAL WARNING [facility] [place] [facility]
--- OUTSIDE RECORDS SUMMARY | 2024-07-16 07:37 | XMS_ITS | Encounter Summary ---
Author Name [facility] Address [address] [place] [address] Care Team Providers Care Barge Hand Name Role Phone JATINDER CABRERA Primary [...] PART A Sep 29, 2016 PART A [phone] JUDY WEAVER PATIENT Selected Encounter This section includes the information on record at [place] for the Encounter. Date/Time Encounter Type Encounter Description Reason Pro vider Source Jun 28, 2024 10:27 AM Outpatient Encounter ADMIN PAT ACTIVTIES (MASNONCT) IHE [...] Appointment Type Appointme nt Facility Name Jul 03, 2024 05:55 AM AMBULATORY - NONE [facility] Jul 13, 2024 08:15 AM AMBULATORY - NONE [facility] Active, Pending, and Scheduled [...] TYPE & SCREEN - LAB BLOOD SP [facility] Jun 08, 2024 09:57 AM Laboratory - Chemi stry Order URINALYSIS URINE WC ONCE [facility] Jun 12, 2024 12:00 AM Laboratory - Chemi stry Order BNP PLASMA SP ONCE [facility] Jun 21, 2024 05:45 PM Laboratory - Blood Bank Order TYPE & SCREEN - LAB BLOOD WC [facility] Jul 03, 2024 12:00 AM Laboratory - Blood Bank Order TYPE & SCREEN - LAB BLOOD WC [facility] Jul 16, 2024 12:00 AM Laboratory - Chemi stry Order CBC BLOOD SP ONCE [facility] Jul 17, 2024 12:00 AM Laboratory - Chemi stry Order BASIC METABOLIC PANEL+MG PLASMA SP ONCE [facility] Lab Results: +/- 30 days of the [...] Range Comment Jul 10, 2024 07:16 AM [facility] PHOSPHORUS Specimen Type: PLASMA No comment entered. Ordering Provider: JUANCARLOS ECHOLS Report Released Date/Time: Jul 09, 2024 12:23 PM Reporting Lab: [facility] [address] Performing Lab: [facility] [address] PHOSPHORUS 3.0 mg/dL 2.3-4.3 Jul 10, 2024 07:16 AM [facility] BASIC METABOLIC PANEL+MG Specimen Type: PLASMA No comment entered. Ordering Provider: JUANCARLOS ECHOLS S Report Released Date/Time: Jul 09, 2024 12:23 PM Reporting Lab: [facility] [address] Performing Lab: [facility] [address] CREATININE 0.7 mg/dL 0.7-1.2 UREA NITROGEN 27 mg/dL H 8-26 GLUCOSE 104 mg/dL H 70-100 SODIUM 133 mmol/L L 136-145 POTASSIUM 4.3 mmol/L 3.5-5.1 CHLORIDE 102 mmol/L 98-107 CO2 19 mmol/L L 22-29 CALCIUM 10.1 mg/dL 8.4-10.2 MAGNESIUM 1.9 mg/dL 1.6-2.6 ANION GAP 12 mmol/L 5-15 .CREAT EGFR(CKD-EPI) >90 >60 Jul 10, 2024 07:15 AM [facility] CBC Specimen Type: BLOOD No comment entered. Ordering Provider: JUANCARLOS ECHOLS S Report Released Date/Time: Jul 09, 2024 12:23 PM Reporting Lab: [facility] [address] Performing Lab: [facility] [address] WBC 18.8 H 4.0-11.0 RBC 5.08 4.60-6.20 HGB 15.9 g/dL 13.5-17.9 HCT 46.8 41.0-54.0 MCV 92.1 fL 80.0-100.0 MCH 31.3 pg 27.0-33.0 MCHC 34.0 g/dL 32.0-37.5 PLT 479 H 150-400 MPV 10.2 fL 9.1-13.0 RDW 13.7 11.5-14.5 Jul 09, 2024 07:08 AM [facility] CBC Specimen Type: BLOOD No comment entered. Ordering Provider: QUYNH WEISS Report Released Date/Time: Jul 08, 2024 06:18 PM Reporting Lab: [facility] [address] Performing Lab: [facility] [address] WBC 15.3 H 4.0-11.0 RBC 4.91 4.60-6.20 HGB 15.1 g/dL 13.5-17.9 HCT 45.7 41.0-54.0 MCV 93.1 fL 80.0-100.0 MCH 30.8 pg 27.0-33.0 MCHC 33.0 g/dL 32.0-37.5 PLT 443 H 150-400 MPV 10.0 fL 9.1-13.0 RDW 13.5 11.5-14.5 Jul 08, 2024 10:50 AM [facility] URINALYSIS Specimen Type: URINE No comment entered. Ordering Provider: KATELYNN PERSON Report Released Date/Time: Jul 08, 2024 08:41 AM Reporting Lab: [facility] [address] Performing Lab: [facility] [address] URINE COLOR YELLOW SPECIFIC GRAVITY >1.050 H [...] NEGATIVE NEGATIVE Jul 08, 2024 09:54 AM [facility] CBC Specimen Type: BLOOD Comment: Specimen received in Lab at: 0952 Ordering Provider: JUANCARLOS ECHOLS Report Released Date/Time: Jul 07, 2024 04:49 PM Reporting Lab: [facility] [address] Performing Lab: [facility] [address] WBC 17.5 H 4.0-11.0 RBC 4.88 4.60-6.20 HGB 14.9 g/dL 13.5-17.9 HCT 45.7 41.0-54.0 MCV 93.6 fL 80.0-100.0 MCH 30.5 pg 27.0-33.0 MCHC 32.6 g/dL 32.0-37.5 PLT 472 H 150-400 MPV 10.2 fL 9.1-13.0 RDW 13.7 11.5-14.5 Jul 08, 2024 09:54 AM [facility] PHOSPHORUS Specimen Type: PLASMA Comment: Specimen received in Lab at: 0952 Ordering Provider: JUANCARLOS ECHOLS Report Released Date/Time: Jul 07, 2024 04:49 PM Reporting Lab: [facility] [address] Performing Lab: [facility] [address] PHOSPHORUS 2.6 mg/dL 2.3-4.3 Jul 08, 2024 09:54 AM [facility] BASIC METABOLIC PANEL+MG Specimen Type: PLASMA Comment: Specimen received in Lab at: 0952 Ordering Provider: JUANCARLOS ECHOLS S Report Released Date/Time: Jul 07, 2024 04:49 PM Reporting Lab: [facility] [address] Performing Lab: [facility] [address] CREATININE 0.9 mg/dL 0.7-1.2 UREA NITROGEN 26 mg/dL 8-26 GLUCOSE 128 mg/dL H 70-100 SODIUM 134 mmol/L L 136-145 POTASSIUM 3.4 mmol/L L 3.5-5.1 CHLORIDE 100 mmol/L 98-107 CO2 24 mmol/L 22-29 CALCIUM 9.8 mg/dL 8.4-10.2 MAGNESIUM 1.8 mg/dL 1.6-2.6 ANION GAP 10 mmol/L 5-15 .CREAT EGFR(CKD-EPI) >90 >60 Jul 07, 2024 02:00 PM [facility] C DIFF PANEL Specimen Type: FECES No comment entered. Ordering Provider: JEVON ZAZUETA Report Released Date/Time: Jul 07, 2024 12:26 PM Reporting Lab: [facility] [address] Performing Lab: [facility] [address] C DIFF TOX B GENE PCR NEGATIVE Negative Jul 07, 2024 07:41 AM [facility] PHOSPHORUS Specimen Type: PLASMA No comment entered. Ordering Provider: JEVON ZAZUETA Report Released Date/Time: Jul 06, 2024 03:44 PM Reporting Lab: [facility] [address] Performing Lab: [facility] [address] PHOSPHORUS 3.1 mg/dL 2.3-4.3 Jul 07, 2024 07:41 AM [facility] BASIC METABOLIC PANEL+MG Specimen Type: PLASMA No comment entered. Ordering Provider: JEVON ZAZUETA Report Released Date/Time: Jul 06, 2024 03:44 PM Reporting Lab: [facility] [address] Performing Lab: [facility] [address] CREATININE 0.9 mg/dL 0.7-1.2 UREA NITROGEN 20 mg/dL 8-26 GLUCOSE 157 mg/dL H 70-100 SODIUM 136 mmol/L 136-145 POTASSIUM 3.7 mmol/L 3.5-5.1 CHLORIDE 102 mmol/L 98-107 CO2 21 mmol/L L 22-29 CALCIUM 9.8 mg/dL 8.4-10.2 MAGNESIUM 1.9 mg/dL 1.6-2.6 ANION GAP 13 mmol/L 5-15 .CREAT EGFR(CKD-EPI) >90 >60 Jul 07, 2024 07:40 AM [facility] CBC Specimen Type: BLOOD No comment entered. Ordering Provider: JEVON ZAZUETA Report Released Date/Time: Jul 06, 2024 03:44 PM Reporting Lab: [facility] [address] Performing Lab: [facility] [address] WBC 21.2 H 4.0-11.0 RBC 5.09 4.60-6.20 HGB 15.9 g/dL 13.5-17.9 HCT 48.3 41.0-54.0 MCV 94.9 fL 80.0-100.0 MCH 31.2 pg 27.0-33.0 MCHC 32.9 g/dL 32.0-37.5 PLT 500 H 150-400 MPV 10.3 fL 9.1-13.0 RDW 13.6 11.5-14.5 Jul 06, 2024 07:21 AM [facility] CBC Specimen Type: BLOOD No comment entered. Ordering Provider: JEVON ZAZUETA Report Released Date/Time: Jul 05, 2024 01:22 PM Reporting Lab: [facility] [address] Performing Lab: [facility] [address] WBC 18.0 H 4.0-11.0 RBC 4.83 4.60-6.20 HGB 14.6 g/dL 13.5-17.9 HCT 45.5 41.0-54.0 MCV 94.2 fL 80.0-100.0 MCH 30.2 pg 27.0-33.0 MCHC 32.1 g/dL 32.0-37.5 PLT 368 150-400 MPV 10.4 fL 9.1-13.0 RDW 13.6 11.5-14.5 Jul 06, 2024 07:21 AM [facility] PHOSPHORUS Specimen Type: PLASMA No comment entered. Ordering Provider: JEVON ZAZUETA Report Released Date/Time: Jul 05, 2024 01:22 PM Reporting Lab: [facility] [address] Performing Lab: [facility] [address] PHOSPHORUS 3.6 mg/dL 2.3-4.3 Jul 06, 2024 07:21 AM [facility] BASIC METABOLIC PANEL+MG Specimen Type: PLASMA No comment entered. Ordering Provider: JEVON ZAZUETA Report Released Date/Time: Jul 05, 2024 01:22 PM Reporting Lab: [facility] [address] Performing Lab: [facility] [address] CREATININE 0.7 mg/dL 0.7-1.2 UREA NITROGEN 12 mg/dL 8-26 GLUCOSE 108 mg/dL H 70-100 SODIUM 138 mmol/L 136-145 POTASSIUM 3.4 mmol/L L 3.5-5.1 CHLORIDE 104 mmol/L 98-107 CO2 20 mmol/L L 22-29 CALCIUM 9.3 mg/dL 8.4-10.2 MAGNESIUM 1.9 mg/dL 1.6-2.6 ANION GAP 14 mmol/L 5-15 .CREAT EGFR(CKD-EPI) >90 >60 Jul 05, 2024 07:17 AM [facility] MAGNESIUM Specimen Type: PLASMA No comment entered. Ordering Provider: JUANCARLOS ECHOLS Report Released Date/Time: Jul 04, 2024 09:39 AM Reporting Lab: [facility] [address] Performing Lab: [facility] [address] MAGNESIUM 2.0 mg/dL 1.6-2.6 Jul 05, 2024 07:17 AM [facility] PHOSPHORUS Specimen Type: PLASMA No comment entered. Ordering Provider: JUANCARLOS ECHOLS S Report Released Date/Time: Jul 04, 2024 09:39 AM Reporting Lab: [facility] [address] Performing Lab: [facility] [address] PHOSPHORUS 2.0 mg/dL L 2.3-4.3 Jul 05, 2024 07:17 AM [facility] BASIC METABOLIC PANEL+MG Specimen Type: PLASMA No comment entered. Ordering Provider: JUANCARLOS ECHOLS S Report Released Date/Time: Jul 04, 2024 09:39 AM Reporting Lab: [facility] [address] Performing Lab: [facility] [address] CREATININE 0.7 mg/dL 0.7-1.2 UREA NITROGEN 12 mg/dL 8-26 GLUCOSE 84 mg/dL 70-100 SODIUM 135 mmol/L L 136-145 POTASSIUM 3.8 mmol/L 3.5-5.1 CHLORIDE 104 mmol/L 98-107 CO2 24 mmol/L 22-29 CALCIUM 9.3 mg/dL 8.4-10.2 MAGNESIUM 2.0 mg/dL 1.6-2.6 ANION GAP 7 mmol/L 5-15 .CREAT EGFR(CKD-EPI) >90 >60 Jul 05, 2024 07:16 AM [facility] CBC Specimen Type: BLOOD No comment entered. Ordering Provider: JUANCARLOS ECHOLS S Report Released Date/Time: Jul 04, 2024 09:39 AM Reporting Lab: [facility] [address] Performing Lab: [facility] [address] WBC 18.3 H 4.0-11.0 RBC 4.49 L 4.60-6.20 HGB 14.1 g/dL 13.5-17.9 HCT 43.4 41.0-54.0 MCV 96.7 fL 80.0-100.0 MCH 31.4 pg 27.0-33.0 MCHC 32.5 g/dL 32.0-37.5 PLT 317 150-400 MPV 10.0 fL 9.1-13.0 RDW 13.9 11.5-14.5 Jul 04, 2024 07:17 AM [facility] BASIC METABOLIC PANEL+MG Specimen Type: PLASMA No comment entered. Ordering Provider: GABINO CAMERON Report Released Date/Time: Jul 03, 2024 06:31 PM Reporting Lab: [facility] [address] Performing Lab: [facility] [address] CREATININE 0.7 mg/dL 0.7-1.2 UREA NITROGEN 16 mg/dL 8-26 GLUCOSE 129 mg/dL H 70-100 SODIUM 137 mmol/L 136-145 POTASSIUM 3.7 mmol/L 3.5-5.1 CHLORIDE 107 mmol/L 98-107 CO2 22 mmol/L 22-29 CALCIUM 9.0 mg/dL 8.4-10.2 MAGNESIUM 1.9 mg/dL 1.6-2.6 ANION GAP 8 mmol/L 5-15 .CREAT EGFR(CKD-EPI) >90 >60 Jul 04, 2024 07:17 AM [facility] PHOSPHORUS Specimen Type: PLASMA No comment entered. Ordering Provider: GABINO CAMERON Report Released Date/Time: Jul 03, 2024 06:31 PM Reporting Lab: [facility] [address] Performing Lab: [facility] [address] PHOSPHORUS 2.8 mg/dL 2.3-4.3 Jul 04, 2024 07:16 AM [facility] CBC Specimen Type: BLOOD No comment entered. Ordering Provider: GABINO CAMERON Report Released Date/Time: Jul 03, 2024 06:31 PM Reporting Lab: [facility] [address] Performing Lab: [facility] [address] WBC 20.6 H 4.0-11.0 RBC 4.63 4.60-6.20 HGB 14.2 g/dL 13.5-17.9 HCT 43.4 41.0-54.0 MCV 93.7 fL 80.0-100.0 MCH 30.7 pg 27.0-33.0 MCHC 32.7 g/dL 32.0-37.5 PLT 329 150-400 MPV 10.4 fL 9.1-13.0 RDW 13.8 11.5-14.5 Jul 04, 2024 07:16 AM [facility] CBC & DIFF Specimen Type: BLOOD Comment: Manual Differential Performed Ordering Provider: GABINO CAMERON Report Released Date/Time: Jul 03, 2024 06:31 PM Reporting Lab: [facility] [address] Performing Lab: [facility] [address] WBC 20.6 H 4.0-11.0 RBC 4.63 4.60-6.20 [...] MORPHOLOGY PRESENT Jul 04, 2024 07:15 AM [facility] BNP Specimen Type: PLASMA No comment entered. Ordering Provider: GABINO CAMERON Report Released Date/Time: Jul 03, 2024 06:31 PM Reporting Lab: [facility] [address] Performing Lab: [facility] [address] BNP 292 pg/mL H <99 Jul 03, 2024 10:32 PM [facility] FINGERSTICK GLUCOSE Specimen Type: BLOOD Comment: Save Result Nurse Notified Ordering Provider: KATELYNN PERSON Report Released Date/Time: Jul 03, 2024 10:50 PM Reporting Lab: [facility] [address] Performing Lab: [facility] [address] FINGERSTICK GLUCOSE 126 mg/dL H 70-100 Jul 03, 2024 05:33 PM [facility] FINGERSTICK GLUCOSE Specimen Type: BLOOD Comment: Save Result Nurse Notified Ordering Provider: KATELYNN PERSON Report Released Date/Time: Jul 03, 2024 05:46 PM Reporting Lab: [facility] [address] Performing Lab: [facility] [address] FINGERSTICK GLUCOSE 141 mg/dL H 70-100 Jul 03, 2024 02:31 PM [facility] POC ABG/ELECTROLYTES Specimen Type: ARTERIAL BLOOD Comment: FIO2 = 97% Patient Temp: 36.0 C Sample Type = ARTERIAL Ordering Provider: MAZIN ARREDONDO Report Released Date/Time: Jul 03, 2024 01:48 PM Reporting Lab: [facility] [address] Performing Lab: [facility] [address] POC PH 7.387 7.35-7.45 POC PCO2 34.4 [...] H 80.0-105.0 Jul 03, 2024 01:05 PM [facility] POC ABG/ELECTROLYTES Specimen Type: ARTERIAL BLOOD Comment: FIO2 = 53% Patient Temp: 36.2 C Sample Type = ARTERIAL Ordering Provider: MAZIN ARREDONDO Report Released Date/Time: Jul 03, 2024 01:48 PM Reporting Lab: [facility] [address] Performing Lab: [facility] [address] POC PH 7.280 L 7.35-7.45 POC PCO2 [...] mm[Hg] 80.0-105.0 Jul 03, 2024 06:15 AM [facility] URINALYSIS Specimen Type: URINE No comment entered. Ordering Provider: MARYBETH POWELL Report Released Date/Time: Jun 12, 2024 04:01 PM Reporting Lab: [facility] [address] Performing Lab: [facility] [address] URINE COLOR YELLOW SPECIFIC GRAVITY 1.031 1.003-1.03 [...] 250 NEGATIVE Jul 03, 2024 06:13 AM [facility] CBC Specimen Type: BLOOD No comment entered. Ordering Provider: MARYBETH POWELL Report Released Date/Time: Jun 12, 2024 03:59 PM Reporting Lab: [facility] [address] Performing Lab: [facility] [address] WBC 15.8 H 4.0-11.0 RBC 5.11 4.60-6.20 HGB 16.1 g/dL 13.5-17.9 HCT 49.1 41.0-54.0 MCV 96.1 fL 80.0-100.0 MCH 31.5 pg 27.0-33.0 MCHC 32.8 g/dL 32.0-37.5 PLT 357 150-400 MPV 9.8 fL 9.1-13.0 RDW 13.7 11.5-14.5 Jun 24, 2024 09:50 AM [facility] BASIC METABOLIC PANEL+MG Specimen Type: PLASMA Comment: Specimen received in Lab at: 0948 Ordering Provider: JEVON ZAZUETA Report Released Date/Time: Jun 23, 2024 06:07 PM Reporting Lab: [facility] [address] Performing Lab: [facility] [address] CREATININE 0.8 mg/dL 0.7-1.2 UREA NITROGEN 13 mg/dL 8-26 GLUCOSE 135 mg/dL H 70-100 SODIUM 135 mmol/L L 136-145 POTASSIUM 3.6 mmol/L 3.5-5.1 CHLORIDE 103 mmol/L 98-107 CO2 24 mmol/L 22-29 CALCIUM 9.2 mg/dL 8.4-10.2 MAGNESIUM 1.9 mg/dL 1.6-2.6 ANION GAP 8 mmol/L 5-15 .CREAT EGFR(CKD-EPI) >90 >60 Jun 24, 2024 09:50 AM [facility] CBC Specimen Type: BLOOD Comment: Specimen received in Lab at: 0948 Ordering Provider: JEVON ZAZEUTA Report Released Date/Time: Jun 23, 2024 06:07 PM Reporting Lab: [facility] [address] Performing Lab: [facility] [address] WBC 15.5 H 4.0-11.0 RBC 4.93 4.60-6.20 HGB 15.2 g/dL 13.5-17.9 HCT 46.5 41.0-54.0 MCV 94.3 fL 80.0-100.0 MCH 30.8 pg 27.0-33.0 MCHC 32.7 g/dL 32.0-37.5 PLT 223 150-400 MPV 11.4 fL 9.1-13.0 RDW 13.9 11.5-14.5 Jun 23, 2024 07:52 AM [facility] COMPREHENSIVE METABOLIC PANEL+MG Specimen Type: PLASMA No comment entered. Ordering Provider: JEVON ZAZUETA Report Released Date/Time: Jun 22, 2024 05:51 PM Reporting Lab: [facility] [address] Performing Lab: [facility] [address] CREATININE 0.7 mg/dL 0.7-1.2 UREA NITROGEN 16 [...] >90 >60 Jun 23, 2024 07:52 AM [facility] CBC & DIFF Specimen Type: BLOOD Comment: Automated Differential Performed Ordering Provider: JEVON ZAZUETA Report Released Date/Time: Jun 22, 2024 05:51 PM Reporting Lab: [facility] [address] Performing Lab: [facility] [address] WBC 14.9 H 4.0-11.0 RBC 5.09 4.60-6.20 [...] 0.1 0.0-0.1 Jun 22, 2024 06:10 PM [facility] CBC Specimen Type: BLOOD No comment entered. Ordering Provider: JEVON ZAZUETA Report Released Date/Time: Jun 22, 2024 05:51 PM Reporting Lab: [facility] [address] Performing Lab: [facility] [address] WBC 16.9 H 4.0-11.0 RBC 5.28 4.60-6.20 HGB 16.9 g/dL 13.5-17.9 HCT 50.4 41.0-54.0 MCV 95.5 fL 80.0-100.0 MCH 32.0 pg 27.0-33.0 MCHC 33.5 g/dL 32.0-37.5 PLT 223 150-400 MPV 10.9 fL 9.1-13.0 RDW 14.0 11.5-14.5 Jun 22, 2024 06:10 PM [facility] COMPREHENSIVE METABOLIC PANEL+MG Specimen Type: PLASMA No comment entered. Ordering Provider: JEVON ZAZUETA Report Released Date/Time: Jun 22, 2024 05:51 PM Reporting Lab: [facility] [address] Performing Lab: [facility] [address] CREATININE 0.7 mg/dL 0.7-1.2 UREA NITROGEN 17 [...] >90 >60 Jun 21, 2024 06:48 PM [facility] URINALYSIS Specimen Type: URINE No comment entered. Ordering Provider: DELIA MARTINEZ Report Released Date/Time: Jun 21, 2024 05:45 PM Reporting Lab: [facility] [address] Performing Lab: [facility] [address] URINE COLOR YELLOW SPECIFIC GRAVITY 1.041 H [...] 500 NEGATIVE Jun 21, 2024 05:34 PM [facility] POC CREATININE Specimen Type: BLOOD No comment entered. Ordering Provider: DELIA MARTINEZ Report Released Date/Time: Jun 21, 2024 06:07 PM Reporting Lab: [facility] [address] Performing Lab: [facility] [address] POC CREATININE 1.1 mg/dL 0.6-1.3 Jun 21, 2024 05:30 PM [facility] POC ABG/LACTATE Specimen Type: VENOUS BLOOD No comment entered. Ordering Provider: DELIA MARTINEZ Report Released Date/Time: Jun 21, 2024 06:07 PM Reporting Lab: [facility] [address] Performing Lab: [facility] [address] POC PH 7.470 H 7.31-7.41 POC PCO2 31.2 mm[Hg] L 41.00-51 .0 0 POC PO2 46 mm[Hg] H 35.0-40.0 POC TCO2 24 mmol/L 24.0-29.0 POC HCO3 22.7 mmol/L L 23.0-28.0 POC BE ECT -1 mmol/L POC SO2 85 H 70-75 POC LACTATE 1.85 mmol/L 0.90-1.70 Jun 21, 2024 05:24 PM [facility] PROTHROMBIN TIME/INR Specimen Type: PLASMA No comment entered. Ordering Provider: DELIA MRATINEZ Report Released Date/Time: Jun 21, 2024 05:30 PM Reporting Lab: [facility] [address] Performing Lab: [facility] [address] .INR 1.2 H 0.8-1.1 .PT 13.9 s H 9.4-12.5 Jun 21, 2024 05:24 PM [facility] LIPASE Specimen Type: PLASMA No comment entered. Ordering Provider: DELIA MARTINEZ Report Released Date/Time: Jun 21, 2024 05:30 PM Reporting Lab: [facility] [address] Performing Lab: [facility] [address] LIPASE 32 U/L <60 Jun 21, 2024 05:24 PM [facility] EXTRA GOLD GEL TUBE Specimen Type: SERUM No comment entered. Ordering Provider: DELIA MARTINEZ Report Released Date/Time: Jun 21, 2024 05:41 PM Reporting Lab: [facility] [address] Performing Lab: [facility] [address] EXTRA GOLD GEL TUBE RECEIVED Jun 21, 2024 05:24 PM [facility] COMPREHENSIVE METABOLIC PANEL+MG Specimen Type: PLASMA No comment entered. Ordering Provider: DELIA MARTINEZ Report Released Date/Time: Jun 21, 2024 05:30 PM Reporting Lab: [facility] [address] Performing Lab: [facility] [address] CREATININE 0.9 mg/dL 0.7-1.2 UREA NITROGEN 29 [...] mg/dL <0.5 Jun 21, 2024 05:24 PM [facility] CBC & DIFF Specimen Type: BLOOD Comment: Manual Differential Performed Ordering Provider: DELIA MARTINEZ Report Released Date/Time: Jun 21, 2024 05:30 PM Reporting Lab: [facility] [address] Performing Lab: [facility] [address] WBC 21.3 H 4.0-11.0 RBC 5.48 4.60-6.20 [...] MORPHOLOGY PRESENT Jun 08, 2024 10:59 AM [facility] PROTHROMBIN TIME/INR Specimen Type: PLASMA No comment entered. Ordering Provider: MARYBETH POWELL Report Released Date/Time: May 28, 2024 09:02 AM Reporting Lab: [facility] [address] Performing Lab: [facility] [address] .INR 1.0 0.8-1.1 .PT 11.8 s 9.4-12.5 Jun 08, 2024 10:59 AM [facility] HEMOGLOBIN A1C Specimen Type: BLOOD Comment: Values [...] May 28, 2024 09:02 AM Reporting Lab: [facility] [address] Performing Lab: [facility] [address] HEMOGLOBIN A1C 4.9 4.0-6.0 Jun 08, 2024 10:59 AM [facility] CBC Specimen Type: BLOOD No comment entered. Ordering Provider: MARYBETH POWELL Report Released Date/Time: May 28, 2024 09:02 AM Reporting Lab: [facility] [address] Performing Lab: [facility] [address] WBC 16.1 H 4.0-11.0 RBC 5.02 4.60-6.20 HGB 16.0 g/dL 13.5-17.9 HCT 47.1 41.0-54.0 MCV 93.8 fL 80.0-100.0 MCH 31.9 pg 27.0-33.0 MCHC 34.0 g/dL 32.0-37.5 PLT 228 150-400 MPV 10.3 fL 9.1-13.0 RDW 14.6 H 11.5-14.5 Jun 08, 2024 10:59 AM [facility] BASIC METABOLIC PANEL+MG Specimen Type: PLASMA No comment entered. Ordering Provider: MARYBETH POWELL Report Released Date/Time: May 28, 2024 09:02 AM Reporting Lab: [facility] [address] Performing Lab: [facility] [address] CREATININE 0.9 mg/dL 0.7-1.2 UREA NITROGEN 15 [...] 15, 2024 08:30 AM VA-TOBACCO FORMER USER [facility] Tobacco Use History This section includes a history of the smoking, or tobacco-related health factors, that were collected on or before the date of the Encounter. The data comes from the [place] facility where the Encounter took place. Date/Time Smoking Status/Tobacco Use Comment F acsabas May 15, 2024 08:30 AM VA-TOBACCO QUIT 15 YRS OR MORE [facility] May 06, 2023 11:30 AM VA-TOBACCO FORMER USER [facility] May 06, 2023 11:30 AM VA-TOBACCO QUIT 15 YRS OR MORE [facility] Jun 04, 2022 09:00 AM VA-TOBACCO FORMER USER [facility] Jun 04, 2022 09:00 AM VA-TOBACCO QUIT 15 YRS OR MORE [facility] Jul 10, 2021 08:00 AM VA-TOBACCO FORMER USER [facility] Jul 10, 2021 08:00 AM VA-TOBACCO QUIT 5 TO < 15 YRS [facility] May 23, 2020 08:30 AM VA-TOBACCO FORMER USER [facility] May 23, 2020 08:30 AM VA-TOBACCO QUIT 5 TO < 15 YRS [facility] Mar 20, 2019 04:03 PM VA-TOBACCO FORMER USER [facility] Mar 20, 2019 04:03 PM VA-TOBACCO QUIT 5 TO < 15 YRS [facility] Mar 21, 2018 08:13 AM FORMER TOBACCO USER 7Y OR GREATE R [facility] Feb 24, 2017 09:24 AM FORMER TOBACCO USER 7Y OR GREATE R [facility] January 07, 2016 08:01 AM FORMER TOBACCO USE >1Y <7Y [facility] Feb 03, 2015 07:58 AM FORMER TOBACCO USE <1Y [facility] Feb 26, 2014 08:41 AM CURRENT TOBACCO USER [facility] May 13, 2011 01:45 PM CURRENT TOBACCO USER [facility] Advance Directives: All historical and current Section [...] Mar 23, 2016 CLINICAL WARNING TOÑITOTIM GONZALEZ [facility] Radiology Reports: +/- [...] VIEWS PA A ND LAT: FLACA WEAVER [id number] -1950 Ex Date: JUL 08, 2024@10:09 Req Phys: KATELYNN PERSON Loc: 2KG/07-08-2024@11:49 Img Loc: MAIN X-RAY Service: [facility] [address] (Case 24 COMPLETE) CHEST 2 VIEWS PA AND LAT (RAD Detailed) CPT:94214 Reason for Study: Uptrending WBC, POD 5 Clinical History: [facility] IS NOT under investigation for COVID-19 or is COVID-19 negative POD 5, work up for uptrending wbc Responsible provider name and phone number to notify for critical findings if other than user placing the order and pager listed below: User placing orders pager: Katelynn Person LAST CREATININE 0.9 (07/07/24) Report Status: Verified Date Reported: JUL 08, 2024 Date Verified: JUL 08, 2024 Sewer And Drain Technician E-Sig: Report: CHEST 2 VIEWS PA [...] cardiopulmonary disease. READING PHYSICIAN: Sarbjit Vaughn M.D. -[id number] 07/08/2024 12:46 EST [facility] National Teleradiology Program [phone] (For Medical Practitioner Use Only) Attention Patients / Veterans: If you have questions or concerns about these test results, please contact your ordering provider or primary care team. Primary Interpreting Staff: RADIOLOGY,OUTSIDE SERVICE, Staff Physician / RADIOLOGY,OUTSIDE SERVICE [facility] Jul 08, 2024 10:[address] (AP) ABDOMEN/PE LVIS W CONTRAST: FLACA WEAVER [id number] -[id number] Ex Date: JUL 08, 2024@10:00 Req Phys: KATELYNN PERSON [facility] Loc: 2KG/07-08-2024@12:07 Img Loc: CT IMAGING Service: [place] [address] (Case 22 COMPLETE) CT (AP) ABDOMEN/PELVIS W CONTRAST(CT Detailed) CPT:55838 Contrast Media : Non-ionic Iodinated Reason for [...] PLASMA .CREAT EGFR(CKD-E >90 Ref: >=60 Allergies: ([place] only) TERAZOSIN (Mar 13, 2015) Report Status: Verified Date Reported: JUL 08, 2024 Date Verified: JUL 08, 2024 Sewer And Drain Technician E-Sig: Report: CT (AP) ABDOMEN/PELVIS W [...] as noted above READING PHYSICIAN: Celestino Blanc -[id number] 07/08/2024 13:04 [facility] [phone] (For Medical Practitioner Use Only) Attention Patients / Veterans: If you have questions or concerns about these test results, please contact your ordering provider or primary care team. Primary Interpreting Staff: RADIOLOGY,OUTSIDE SERVICE, Staff Physician / RADIOLOGY,OUTSIDE SERVICE [facility] Jun 22, 2024 11:49 AM ABSCESS DRAIN PLAC EMENT PERITONEAL (P): FLACA WEAVER [id number] -1950 M Exm Date: JUN 22, 2024@11:49 Req Phys: ANGELA HOLDEN [facility] Loc: [facility]/06-22-2024@17:14 Img Loc: INTERVENTIONAL RADIOLOGY Service: [place] [address] (Case [id number] COMPLETE) IR PERITONEAL/RETROPERITONEAL PER(ANI Detailed) CPT:94128 Reason for Study: diverticulitis with abscess (Case [id number] COMPLETE) IR MOD SEDATION 10-22 MIN (ANI Detailed) CPT:42640 Clinical History: IS NOT under investigation for COVID-19 or is COVID-19 negative 73 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 please place abscess drain. Contact number for responsible provider who can be reached for any questions or notifications of critical findings: [phone] n/a LAST CREATININE 0.9 (06/21/24) Report Status: Verified Date Reported: JUN 22, 2024 Date Verified: JUN 22, 2024 Sewer And Drain Technician E-Sig:/ES/LISA PENDLETON MD Report: PROCEDURES: Placement of abscess drainage catheter with CT guidance CLINICAL HISTORY: Recurrent pericolonic abscess/colovesicular fistula. Abscess drain placement requested prior to planned surgery. COMPARISONS: 06/21/2024 CT examination ATTENDING RADIOLOGIST: Lisa Pednleton M.D. Medications: The patient was placed on [...] anesthesia. Using real-time CT fluoroscopy, a 5 Polish Altacoresis catheter was advanced into the collection in the left pelvis. A wire was coiled in the collection. The tract into the collection was dilated to accommodate the 12 Polish locking pigtail drainage catheter. There was return [...] Primary Interpreting Staff: LISA PENDLETON MD, RADIOLOGIST (Sewer And Drain Technician) /JRT LISA PENDLETON [facility] Jun 22, 2024 11:[address] NEEDLE PLACEMEN T (P): MEGFLACA YAMIL [id number] -1950 M Exm Date: JUN 22, 2024@11:48 Req Phys: ANGELA HOLDEN Loc: [facility]06-22-2024@17:14 Img Loc: CT IMAGING Service: [place] [address] (Case [id number] COMPLETE) CT SCAN FOR NEEDLE PLACEMENT (CT Detailed) CPT:35719 Reason for Study: l pelvic abscess drain Clinical History: Report Status: Verified Date Reported: JUN 22, 2024 Date Verified: JUN 22, 2024 Sewer And Drain Technician E-Sig:/ES/LISA PENDLETON MD Report: PROCEDURES: Placement [...] anesthesia. Using real-time CT fluoroscopy, a 5 Polish Altacoresis catheter was advanced into the collection in the left pelvis. A wire was coiled in the collection. The tract into the collection was dilated to accommodate the 12 Polish locking pigtail drainage catheter. There was return [...] Primary Interpreting Staff: LISA PENDLETON MD, RADIOLOGIST (Sewer And Drain Technician) /JRT LISA PENDLETON [facility] Jun 21, 2024 06:[address] (AP) ABDOMEN/PE LVIS (P): MEGFLACA YAMIL [id number] -1950 M Exm Date: JUN 21, 2024@18:09 Req Phys: DELIA MARTINEZ Loc: [facility] EMERGENCY DEPT WALK-IN (Re Img Loc: CT IMAGING Service: [place] [address] (Case [id number] COMPLETE) CT (AP) ABDOMEN/PELVIS W CONTRAST(CT Detailed) CPT:09711 Contrast Media : Non-ionic Iodinated Reason for [...] PLASMA .CREAT EGFR(CKD-E >90 Ref: >=60 Allergies: ([place] only) TERAZOSIN (Mar 13, 2015) Defer to [...] 21, 2024 Date Verified: JUN 21, 2024 Sewer And Drain Technician E-Sig:/ALEXI/CARLOS A CUNNINGHAM DO Report: EXAMINATION: [...] Interpreting Staff: CARLOS A CUNNINGHAM DO, RADIOLOGIST (Sewer And Drain Technician) /CARLOS A ROWELL [facility] Pathology Reports: +/- 30 days of the [...] COSIGNER: URGENCY: STATUS: COMPLETED $APHDR Reporting Lab: [facility] [CLIA# [id number]] [place] [address] - - - - - - - [...] - - - PATHOLOGY REPORT Accession No. [id number] - - - - - - - [...] - PATHOLOGY REPORT Accession No. [id number] - - - - - - - [...] Second circumferential surgical margin, en face; E-F: Preparation Room Manager diverticula; G: Preparation Room Manager section of mesentery; H: Random medical office representative section of additional adipose tissue fragment. [...] One colonic tissue ring, bisected transversely. SS. (D[facility] MICROSCOPIC DESCRIPTION: Microscopic examination performed. DIAGNOSIS: 1. Colon, sigmoid, sigmoidectomy-- - Diverticulosis with perforation and focal abscess formation 2. Colon, anastomotic rings, excision-- - Viable colonic mucosa without diagnostic abnormality /alexi/ EDUARDO PALOMARES MD STAFF PATHOLOGIST Signed Jul 06, 2024@10:40 Performing Laboratory: Surgical Pathology Report Performed By: [facility] [CLIA# [id number]] [place] [address] $FTR - - - - - - [...] - - FLACA WEAVER STANDARD FORM 515 ID:[id number] SEX:M :1950 AGE: 73 LOC:51695 ADM:Jun DX:DIVERTICULITIS PCP: Jatinder Cabrera /alexi/ EDUARDO PALOMARES MD STAFF PATHOLOGIST Signed: 07/06/2024 10:40 EDUARDO PALOMARES [facility] Jun 22, 2024 01:15 PM LR MICROBIOLOGY RE PORT: Reporting Lab: [facility] [CLIA# [id number]] [place] [address] Accession [UID]: [id number] [[id number]] Received: Jun 22, 2024@13:38 Collection sample: FLUID Collection date: Jun 22, 2024 13:15 Provider: ANGELA HOLDEN Comment on specimen: LLQ ABSCESS, RECEIVED IN ANAEROBIC TRANSPORT VIAL Test(s) ordered: GRAM STAIN.................... completed: Jun 22, 2024 15:03 CULTURE & SUSCEPTIBILITY...... completed: Jun 25, 2024 * BACTERIOLOGY FINAL REPORT => Jun 25, 2024 10:56 TECH CODE: [id number] GRAM STAIN: DIRECT SMEAR of specimen before [...] -=--=--=--=--=--=--=-- Performing Laboratory: Bacteriology Report Performed By: [facility] [CLIA# [id number]] [place] [address] [facility] Jun 22, 2024 01:15 PM LR MICROBIOLOGY RE PORT: Reporting Lab: [facility] [CLIA# [id number]] [place] [address] Accession [UID]: [id number] [[id number]] Received: Jun 22, 2024@13:38 Collection sample: FLUID Collection date: Jun 22, 2024 13:15 Provider: ANGELA HOLDEN Comment on specimen: LLQ ABSCESS, RECEIVED IN ANAEROBIC TRANSPORT VIAL Test(s) ordered: ANAEROBIC CULTURE............. completed: Jun 28, 2024 * BACTERIOLOGY FINAL REPORT => Jun 28, 2024 10:08 TECH CODE: [id number] CULTURE RESULTS: HEAVY GROWTH MIXED ANAEROBES Comment: including the followin+ Bacteroides fragilis 4+ Bacteroides vulgatus 4+ Clostridium innocuum Beta-lactamase negative 4+ Bacteroides caccae 4+ Parvimonas micra 4+ Bacteroides uniformis 4+ Gemella morbillorum 4+ anaerobic small, Gram Positive Rods 4+ Bacteroides thetaiotaomicron Standard workup is now complete. Bacteriology Remark(s): THIS REPORT IS FINAL =--=--=--=--=--=--=--=--=--= --=--=--=--=--=--=--=--=--=- -=--=--=--=--=--=--=-- Performing Laboratory: Bacteriology Report Performed By: [facility] [CLIA# [id number]] [place] [address] [facility] Jun 21, 2024 06:12 PM LR MICROBIOLOGY RE PORT: Reporting Lab: [facility] [CLIA# [id number]] [place] [address] Accession [UID]: [id number] [[id number]] Received: Jun 21, 2024@18:12 Collection sample: BLOOD [...] -=--=--=--=--=--=--=-- Performing Laboratory: Bacteriology Report Performed By: [facility] [CLIA# [id number]] [place] [address] [facility] Jun 21, 2024 06:11 PM LR MICROBIOLOGY RE PORT: Reporting Lab: [facility] [IA# [id number]] [place] [address] Accession [UID]: [id number] [[id number]] Received: Jun 21, 2024@18:11 Collection sample: BLOOD [...] -=--=--=--=--=--=--=-- Performing Laboratory: Bacteriology Report Performed By: [facility] [IA# [id number]] [place] [address] [facility] Jun 08, 2024 11:00 AM LR MICROBIOLOGY RE PORT: Reporting Lab: [facility] [IA# [id number]] [place] [address] Accession [UID]: [id number] [[id number]] Received: Jun 08, 2024@11:00 Collection sample: URINE Collection date: Jun 08, 2024 11:00 Provider: MARYBETH POWELL Comment on specimen: urine Test(s) ordered: CULTURE & SUSCEPTIBILITY...... completed: Jun 09, 2024 * BACTERIOLOGY FINAL REPORT => Jun 09, 2024 19:12 TECH CODE: [id number] CULTURE RESULTS: ESCHERICHIA COLI - Quantity: >100,000 [...] -=--=--=--=--=--=--=-- Performing Laboratory: Bacteriology Report Performed By: [facility] [CLIA# [id number]] [place] [address] [facility] Encounter Notes: All associated encounter notes This section contains the clinical notes associated to the Encounter. Date/Time Encounter Note(s) Provider Source Jul 03, 2024 10:06 AM ADDENDUM: LOCAL TITLE: Addendum STANDARD TITLE: ADDENDUM DATE OF NOTE: JUL 03, 2024@10:06:42 ENTRY DATE: JUL 03, 2024@10:06:44 AUTHOR: YULIA CORRAL EXP COSIGNER: URGENCY: STATUS: COMPLETED No new, pending or discontinued medication orders since the time of this note, per chart review. Medication list provided to assist with inpatient orders. /es/ YULIA CORRAL [facility] CLINICAL PHARMACIST Signed: 07/03/2024 10:07 Receipt Acknowledged By: 07/03/2024 14:21 /es/ LEONARD CAMACHO PHARMACIST * AWAITING SIGNATURE * WENCESLAO ARREDONDO 07/04/2024 02:39 /es/ MERY NGUYEN MD SOD --- Original Document --- 06/28/24 DRUG RECONCILIATION ON ADMIT: PHARMACY MEDICATION HISTORY [...] were no relevant meds for the patient. Seasonal Influenza Immunization: INFLUENZA, HIGH-DOSE, TRIVALENT,* 05/15/2024 [place]* NON-INTERVIEW Patient has NOT BEEN INTERVIEWED by pharmacy regarding outpatient medication use prior to admit. Patient refused Interview Patient states he takes 6 tables a day, takes all in the AM. Patient was using inappropriate language and hang up the phone. 06/27/2024 11:38 ========= FLACA WEAVER [id number] Source of Info: [facility] Drug Last Refills Qty Filled Remaining ---- --- ------ --------- ACETAMINOPHEN 500MG TAB 21 06/25/2024 (0) TWO TID PRN FOR PAIN FOR PAIN pt states has been taking a few tabs daily AMOXICILLIN 875/CLAV K 125MG TAB 20 06/25/2024 (0) 1 BID INFECTION Indication: INFECTION pt states started after he was discharge from the [facility] think 1-st dose was on Tuesday in the PM ATORVASTATIN CALCIUM 40MG TAB 45 04/03/2024 (0) ONE-HALF QHS FOR CHOLESTEROL COLON ELECTROLYTE LAVAGE PWD FOR SOLN 1 05/28/2024 (0) 1 CONTAINER (4 LITERS) ONCE PRE-OP FOR COLO-RECTAL SURGERY INSTRUCTION SHEET MAILED FROM CLINIC Indication: PRE-OP FOR COLO-RECTAL SURGERY DOCUSATE NA 50MG/SENNOSIDES 8.6MG TAB 14 06/25/2024 (0) 1 QHS FOR CONSTIPATION EMPAGLIFLOZIN 25MG TAB 45 05/11/2024 (2) ONE-HALF QDAY (am) FUROSEMIDE 20MG TAB 90 06/24/2024 (3) ONE QDAY (am) FOR EXCESS FLUID HCTZ 12.5/LISINOPRIL 10MG TAB 45 05/07/2024 (3) ONE HALF QDAY FOR BLOOD PRESSURE IBUPROFEN 600MG TAB 21 06/25/2024 (0) ONE TID PRN FOR PAIN per pt not often ISOSORBIDE MONONITRATE 30MG SA TAB 90 03/09/2024 (2) ONE QDAY FOR CHEST PAIN NEOMYCIN SULFATE 500MG TAB 6 05/28/2024 (0) TWO TID PREOP AT 1PM, 2PM AND 11PM ON THE DAY BEFORE COLORECTAL SURGERY (ALONG WITH METRONIDAZOLE) Indication: PREOP NITROFURANTOIN MONO/MACRO 100MG SA CAP 14 06/12/2024 (0) ONE BID FOR UTI Indication: FOR UTI NITROGLYCERIN 0.4MG SL TAB 100 06/12/2024 (0) DISSOLVE ONE UNDER THE TONGUE TID NEEDED CHEST PAIN FOR CHEST PAIN * MAY REPEAT EVERY 5 MINUTES--NO MORE THAN 3 TOTAL Indication: CHEST PAIN PSYLLIUM ORAL PWD 1170 01/31/2024 (3) 2 TEASPOONSFUL QDAY FOR CONSTIPATION SPIRONOLACTONE 25MG TAB 45 06/11/2024 (2) ONE-HALF QDAY FOR BLOOD PRESSURE The following prescriptions have AMOXICILLIN 875/CLAV K 125MG TAB 20 04/26/2024 (0) 1 BID Indication: ABSCESS, COLOVESICULAR FISTULA : 05/26/2024 PHENAZOPYRIDINE HCL 100MG TAB 90 04/26/2024 (0) TWO TID PRN FOR BLADDER PAIN : 05/26/2024 SODIUM CHLORIDE 0.9% PF INJ SYR 10ML 60 05/15/2024 (0) INJECT 10 ML TOPICALLY DIRECTED FOR IRRIGATION FOR WOUND CLEANSING Indication: FOR IRRIGATION : 06/11/2024 No pending orders for this patient! The following are Non-VA medications No Non-VA Meds Extracted END Medications given in clinic: Not applicable Recently discontinued prescriptions: Dcd 06/25/24 METRONIDAZOLE 500MG TAB Issue Date 05/28/2024 SIG TAKE ONE TABLET BY MOUTH THREE TIMES A DAY - TAKE AT 1PM, 2PM, AND 11PM THE DAY BEFORE PROCEDURE ALONG WITH NEOMYCIN Facility: [facility] /alexi/ ASHKAN LÓPEZ CIRCUS SUPERVISOR Signed: 06/28/2024 10:45 YULIA CORRAL [facility] Jun 28, 2024 10:27 AM PHARMACY MEDICATIO N MGT NOTE: LOCAL TITLE: DRUG RECONCILIATION ON ADMIT STANDARD TITLE: PHARMACY MEDICATION MGT NOTE DATE OF NOTE: JUN 28, 2024@10:27 ENTRY DATE: JUN 28, 2024@10:27:59 AUTHOR: ASHKAN LÓPEZ COSIGNER: URGENCY: STATUS: COMPLETED DRUG RECONCILIATION ON [...] were no relevant meds for the patient. Seasonal Influenza Immunization: INFLUENZA, HIGH-DOSE, TRIVALENT,* 05/15/2024 [place]* NON-INTERVIEW Patient has NOT BEEN INTERVIEWED by pharmacy regarding outpatient medication use prior to admit. Patient refused Interview Patient states he takes 6 tables a day, takes all in the AM. Patient was using inappropriate language and hang up the phone. 06/27/2024 11:38 ========= MEGFLACADARCI LOBO [id number] Source of Info: [facility] Drug Last Refills Qty Filled Remaining ---- --- ------ --------- ACETAMINOPHEN 500MG TAB 21 06/25/2024 (0) TWO TID PRN FOR PAIN FOR PAIN pt states has been taking a few tabs daily AMOXICILLIN 875/CLAV K 125MG TAB 20 06/25/2024 (0) 1 BID INFECTION Indication: INFECTION pt states started after he was discharge from the [place] think 1-st dose was on Tuesday in the PM ATORVASTATIN CALCIUM 40MG TAB 45 04/03/2024 (0) ONE-HALF QHS FOR CHOLESTEROL COLON ELECTROLYTE LAVAGE PWD FOR SOLN 1 05/28/2024 (0) 1 CONTAINER (4 LITERS) ONCE PRE-OP FOR COLO-RECTAL SURGERY INSTRUCTION SHEET MAILED FROM CLINIC Indication: PRE-OP FOR COLO-RECTAL SURGERY DOCUSATE NA 50MG/SENNOSIDES 8.6MG TAB 14 06/25/2024 (0) 1 QHS FOR CONSTIPATION EMPAGLIFLOZIN 25MG TAB 45 05/11/2024 (2) ONE-HALF QDAY (am) FUROSEMIDE 20MG TAB 90 06/24/2024 (3) ONE QDAY (am) FOR EXCESS FLUID HCTZ 12.5/LISINOPRIL 10MG TAB 45 05/07/2024 (3) ONE HALF QDAY FOR BLOOD PRESSURE IBUPROFEN 600MG TAB 21 06/25/2024 (0) ONE TID PRN FOR PAIN per pt not often ISOSORBIDE MONONITRATE 30MG SA TAB 90 03/09/2024 (2) ONE QDAY FOR CHEST PAIN NEOMYCIN SULFATE 500MG TAB 6 05/28/2024 (0) TWO TID PREOP AT 1PM, 2PM AND 11PM ON THE DAY BEFORE COLORECTAL SURGERY (ALONG WITH METRONIDAZOLE) Indication: PREOP NITROFURANTOIN MONO/MACRO 100MG SA CAP 14 06/12/2024 (0) ONE BID FOR UTI Indication: FOR UTI NITROGLYCERIN 0.4MG SL TAB 100 06/12/2024 (0) DISSOLVE ONE UNDER THE TONGUE TID NEEDED CHEST PAIN FOR CHEST PAIN * MAY REPEAT EVERY 5 MINUTES--NO MORE THAN 3 TOTAL Indication: CHEST PAIN PSYLLIUM ORAL PWD 1170 01/31/2024 (3) 2 TEASPOONSFUL QDAY FOR CONSTIPATION SPIRONOLACTONE 25MG TAB 45 06/11/2024 (2) ONE-HALF QDAY FOR BLOOD PRESSURE The following prescriptions have AMOXICILLIN 875/CLAV K 125MG TAB 20 04/26/2024 (0) 1 BID Indication: ABSCESS, COLOVESICULAR FISTULA : 05/26/2024 PHENAZOPYRIDINE HCL 100MG TAB 90 04/26/2024 (0) TWO TID PRN FOR BLADDER PAIN : 05/26/2024 SODIUM CHLORIDE 0.9% PF INJ SYR 10ML 60 05/15/2024 (0) INJECT 10 ML TOPICALLY DIRECTED FOR IRRIGATION FOR WOUND CLEANSING Indication: FOR IRRIGATION : 06/11/2024 No pending orders for this patient! The following are Non-VA medications No Non-VA Meds Extracted END Medications given in clinic: Not applicable Recently discontinued prescriptions: Dcd 06/25/24 METRONIDAZOLE 500MG TAB Issue Date 05/28/2024 SIG TAKE ONE TABLET BY MOUTH THREE TIMES A DAY - TAKE AT 1PM, 2PM, AND 11PM THE DAY BEFORE PROCEDURE ALONG WITH NEOMYCIN Facility: [facility] /alexi/ ASHKAN LÓPEZ CIRCUS SUPERVISOR Signed: 06/28/2024 10:45 07/03/2024 ADDENDUM STATUS: COMPLETED No new, pending or discontinued medication orders since the time of this note, per chart review. Medication list provided to assist with inpatient orders. /alexi/ YULIA CORRAL [facility] CLINICAL PHARMACIST Signed: 07/03/2024 10:07 Receipt Acknowledged By: * AWAITING SIGNATURE * LEONARD CAMACHO * AWAITING SIGNATURE * WENCESLAO ARREDONDO * AWAITING SIGNATURE * MERY NGUYEN [place] [facility]
--- OUTSIDE RECORDS SUMMARY | 2024-07-16 07:37 | XMS_ITS | Encounter Summary ---
Author Name [facility] [place] [facility] [facility] [place] Address [address] [place] [address] Care Team Providers Care Track Laminating Machine Tender Name Role Phone JATINDER CABRERA Primary Care [...] PART A Sep 29, 2016 PART A [id number] [phone] JUDY WEAVER PATIENT Selected Encounter This section includes the information on record at [place] for the Encounter. Date/Time Encounter Type Encounter Description Reason Provider Source Jun 23, 2024 07:00 AM [facility] HOSP IP/OBS SF/LOW 25 GENERAL SURGERY ICD-10-CM K57.90 Dvrtclos of intest, part unsp, w/o perf or abscess w/o bleed SOCORRO ARREDONDO IHAlex Encounter Template Text not used by [facility] Assessments - Encounter Diagnoses This section includes the primary and secondary diagnoses documented for the Encounter. Date/Time Primary/Secondary Diagnosis Diagnosis Name Provider Source Jun 27, 2024 02:32 PM PRIMARY Dvrtclos of intest, part unsp, w/o perf or abscess w/o bleed ARSONIADIS,ELL IOT [facility] Plan of Treatment: Future Appointments (+ 6 months) and Future Tests (+/- 45 days) The Plan of Treatment section includes future care activities for the patient from [facility] [place] [facility] This section includes future appointments and future orders which are active, pending or scheduled. Future Appointments This section includes appointments that were scheduled to occur 6 months from the date of the Encounter, up to a maximum of 20 appointments. The data comes from all [facility]. Appointment Date/Time Appointment Type Appointme nt Facility Name Jun 27, 2024 07:00 AM AMBULATORY - NONE [facility] Jun 27, 2024 07:30 AM AMBULATORY - MEDICINE [facility] Jun 27, 2024 08:00 AM AMBULATORY - MEDICINE [facility] Jul 03, 2024 05:55 AM AMBULATORY - NONE [facility] Jul 13, 2024 08:15 AM AMBULATORY NONE [facility] Active, Pending, and Scheduled [...] TYPE & SCREEN - LAB BLOOD [facility] Jul 03, 2024 12:00 AM Laboratory - Blood Bank Order TYPE & SCREEN - LAB BLOOD [facility] Jul 16, 2024 12:00 AM [...] 09, 2024 12:23 PM Reporting Lab: [facility] [address] Performing Lab: [facility] [address] PHOSPHORUS 3.0 mg/dL 2.3-4.3 Jul 10, 2024 07:16 AM [facility] BASIC METABOLIC PANEL+MG Specimen Type: PLASMA No comment entered. Ordering Provider: JUANCARLOS ECHOLS S Report Released Date/Time: Jul 09, 2024 12:23 PM Reporting Lab: [facility] [address] Performing Lab: [facility] [address] CREATININE 0.7 mg/dL 0.7-1.2 UREA NITROGEN 27 [...] 09, 2024 12:23 PM Reporting Lab: [facility] [address] Performing Lab: [facility] [address] WBC 18.8 H 4.0-11.0 RBC 5.08 4.60-6.20 [...] 08, 2024 06:18 PM Reporting Lab: [facility] [address] Performing Lab: [facility] [address] WBC 15.3 H 4.0-11.0 RBC 4.91 4.60-6.20 [...] 08, 2024 08:41 AM Reporting Lab: [facility] [address] Performing Lab: [facility] [address] URINE COLOR YELLOW SPECIFIC GRAVITY >1.050 H [...] 07, 2024 04:49 PM Reporting Lab: [facility] [address] Performing Lab: [facility] [address] WBC 17.5 H 4.0-11.0 RBC 4.88 4.60-6.20 [...] 07, 2024 04:49 PM Reporting Lab: [facility] [address] Performing Lab: [facility] [address] PHOSPHORUS 2.6 mg/dL 2.3-4.3 Jul 08, 2024 09:54 AM [facility] BASIC METABOLIC PANEL+MG Specimen Type: PLASMA Comment: Specimen received in Lab at: 0952 Ordering Provider: JUANCARLOS ECHOLS Report Released Date/Time: Jul 07, 2024 04:49 PM Reporting Lab: [facility] [address] Performing Lab: [facility] [address] CREATININE 0.9 mg/dL 0.7-1.2 UREA NITROGEN 26 [...] 07, 2024 12:26 PM Reporting Lab: [facility] [address] Performing Lab: [facility] [address] C DIFF TOX B GENE PCR NEGATIVE Negative Jul 07, 2024 07:41 AM [facility] PHOSPHORUS Specimen Type: PLASMA No comment entered. Ordering Provider: JEVON ZAZUETA Report Released Date/Time: Jul 06, 2024 03:44 PM Reporting Lab: [facility] [address] Performing Lab: [facility] [address] PHOSPHORUS 3.1 mg/dL 2.3-4.3 Jul 07, 2024 07:41 AM [facility] BASIC METABOLIC PANEL+MG Specimen Type: PLASMA No comment entered. Ordering Provider: JEVON ZAZUETA Report Released Date/Time: Jul 06, 2024 03:44 PM Reporting Lab: [facility] [address] Performing Lab: [facility] [address] CREATININE 0.9 mg/dL 0.7-1.2 UREA NITROGEN 20 [...] 06, 2024 03:44 PM Reporting Lab: [facility] [address] Performing Lab: [facility] [address] WBC 21.2 H 4.0-11.0 RBC 5.09 4.60-6.20 [...] 05, 2024 01:22 PM Reporting Lab: [facility] [address] Performing Lab: [facility] [address] WBC 18.0 H 4.0-11.0 RBC 4.83 4.60-6.20 [...] 05, 2024 01:22 PM Reporting Lab: [facility] [address] Performing Lab: [facility] [address] PHOSPHORUS 3.6 mg/dL 2.3-4.3 Jul 06, 2024 07:21 AM [facility] BASIC METABOLIC PANEL+MG Specimen Type: PLASMA No comment entered. Ordering Provider: JEVON ZAZUETA Report Released Date/Time: Jul 05, 2024 01:22 PM Reporting Lab: [facility] [address] Performing Lab: [facility] [address] CREATININE 0.7 mg/dL 0.7-1.2 UREA NITROGEN 12 [...] 04, 2024 09:39 AM Reporting Lab: [facility] [address] Performing Lab: [facility] [address] MAGNESIUM 2.0 mg/dL 1.6-2.6 Jul 05, 2024 07:17 AM [facility] PHOSPHORUS Specimen Type: PLASMA No comment entered. Ordering Provider: JUANCARLOS ECHOLS Report Released Date/Time: Jul 04, 2024 09:39 AM Reporting Lab: [facility] [address] Performing Lab: [facility] [address] PHOSPHORUS 2.0 mg/dL L 2.3-4.3 Jul 05, 2024 07:17 AM [facility] BASIC METABOLIC PANEL+MG Specimen Type: PLASMA No comment entered. Ordering Provider: JUANCARLOS ECHOLS S Report Released Date/Time: Jul 04, 2024 09:39 AM Reporting Lab: [facility] [address] Performing Lab: [facility] [address] CREATININE 0.7 mg/dL 0.7-1.2 UREA NITROGEN 12 [...] 04, 2024 09:39 AM Reporting Lab: [facility] [address] Performing Lab: [facility] [address] WBC 18.3 H 4.0-11.0 RBC 4.49 L [...] 03, 2024 06:31 PM Reporting Lab: [facility] [address] Performing Lab: [facility] [address] PHOSPHORUS 2.8 mg/dL 2.3-4.3 Jul 04, 2024 07:17 AM [facility] BASIC METABOLIC PANEL+MG Specimen Type: PLASMA No comment entered. Ordering Provider: GABINO CAMERON Report Released Date/Time: Jul 03, 2024 06:31 PM Reporting Lab: [facility] [address] Performing Lab: [facility] [address] CREATININE 0.7 mg/dL 0.7-1.2 UREA NITROGEN 16 mg/dL 8-26 GLUCOSE 129 mg/dL H 70-100 SODIUM 137 mmol/L 136-145 POTASSIUM 3.7 mmol/L 3.5-5.1 CHLORIDE 107 mmol/L 98-107 CO2 22 mmol/L 22-29 CALCIUM 9.0 mg/dL 8.4-10.2 MAGNESIUM 1.9 mg/dL 1.6-2.6 ANION GAP 8 mmol/L 5-15 .CREAT EGFR(CKD-EPI) >90 >60 Jul 04, 2024 07:16 AM [facility] CBC Specimen Type: BLOOD No comment entered. Ordering Provider: GABINO CAMERON Report Released Date/Time: Jul 03, 2024 06:31 PM Reporting Lab: [facility] [address] Performing Lab: [facility] [address] WBC 20.6 H 4.0-11.0 RBC 4.63 4.60-6.20 [...] 03, 2024 06:31 PM Reporting Lab: [facility] [address] Performing Lab: [facility] [address] WBC 20.6 H 4.0-11.0 RBC 4.63 4.60-6.20 [...] 03, 2024 06:31 PM Reporting Lab: [facility] [address] Performing Lab: [facility] [address] BNP 292 pg/mL H <99 Jul 03, 2024 10:32 PM [facility] FINGERSTICK GLUCOSE Specimen Type: BLOOD Comment: Save Result Nurse Notified Ordering Provider: KATELYNN PERSON Report Released Date/Time: Jul 03, 2024 10:50 PM Reporting Lab: [facility] [address] Performing Lab: [facility] [address] FINGERSTICK GLUCOSE 126 mg/dL H 70-100 Jul 03, 2024 05:33 PM [facility] FINGERSTICK GLUCOSE Specimen Type: BLOOD Comment: Save Result Nurse Notified Ordering Provider: KATELYNN PERSON Report Released Date/Time: Jul 03, 2024 05:46 PM Reporting Lab: [facility] [address] Performing Lab: [facility] [address] FINGERSTICK GLUCOSE 141 mg/dL H 70-100 Jul 03, 2024 02:31 PM [facility] POC ABG/ELECTROLYTES Specimen Type: ARTERIAL BLOOD Comment: FIO2 = 97% Patient Temp: 36.0 C Sample Type = ARTERIAL Ordering Provider: MAZIN ARREDONDO Report Released Date/Time: Jul 03, 2024 01:48 PM Reporting Lab: [facility] [address] Performing Lab: [facility] [address] POC PH 7.387 7.35-7.45 POC PCO2 34.4 [...] 03, 2024 01:48 PM Reporting Lab: [facility] [address] Performing Lab: [facility] [address] POC PH 7.280 L 7.35-7.45 POC PCO2 [...] 12, 2024 04:01 PM Reporting Lab: [facility] [address] Performing Lab: [facility] [address] URINE COLOR YELLOW SPECIFIC GRAVITY 1.031 1.003-1.03 [...] 12, 2024 03:59 PM Reporting Lab: [facility] [address] Performing Lab: [facility] [address] WBC 15.8 H 4.0-11.0 RBC 5.11 4.60-6.20 [...] 23, 2024 06:07 PM Reporting Lab: [facility] [address] Performing Lab: [facility] [address] CREATININE 0.8 mg/dL 0.7-1.2 UREA NITROGEN 13 [...] 23, 2024 06:07 PM Reporting Lab: [facility] [address] Performing Lab: [facility] [address] WBC 15.5 H 4.0-11.0 RBC 4.93 4.60-6.20 [...] 22, 2024 05:51 PM Reporting Lab: [facility] [address] Performing Lab: [facility] [address] CREATININE 0.7 mg/dL 0.7-1.2 UREA NITROGEN 16 [...] 22, 2024 05:51 PM Reporting Lab: [facility] [address] Performing Lab: [facility] [address] WBC 14.9 H 4.0-11.0 RBC 5.09 4.60-6.20 [...] 22, 2024 05:51 PM Reporting Lab: [facility] [address] Performing Lab: [facility] [address] WBC 16.9 H 4.0-11.0 RBC 5.28 4.60-6.20 [...] 22, 2024 05:51 PM Reporting Lab: [facility] [address] Performing Lab: [facility] [address] CREATININE 0.7 mg/dL 0.7-1.2 UREA NITROGEN 17 [...] 21, 2024 05:45 PM Reporting Lab: [facility] [address] Performing Lab: [facility] [address] URINE COLOR YELLOW SPECIFIC GRAVITY 1.041 H [...] 21, 2024 06:07 PM Reporting Lab: [facility] [address] Performing Lab: [facility] [address] POC CREATININE 1.1 mg/dL 0.6-1.3 Jun 21, 2024 05:30 PM [facility] POC ABG/LACTATE Specimen Type: VENOUS BLOOD No comment entered. Ordering Provider: DELIA MARTINEZ Report Released Date/Time: Jun 21, 2024 06:07 PM Reporting Lab: [facility] [address] Performing Lab: [facility] [address] POC PH 7.470 H 7.31-7.41 POC PCO2 [...] 21, 2024 05:30 PM Reporting Lab: [facility] [address] Performing Lab: [facility] [address] .INR 1.2 H 0.8-1.1 .PT 13.9 s H 9.4-12.5 Jun 21, 2024 05:24 PM [facility] LIPASE Specimen Type: PLASMA No comment entered. Ordering Provider: DELIA MARTINEZ Report Released Date/Time: Jun 21, 2024 05:30 PM Reporting Lab: [facility] [address] Performing Lab: [facility] [address] LIPASE 32 U/L <60 Jun 21, 2024 05:24 PM [facility] EXTRA GOLD GEL TUBE Specimen Type: SERUM No comment entered. Ordering Provider: DELIA MARTINEZ Report Released Date/Time: Jun 21, 2024 05:41 PM Reporting Lab: [facility] [address] Performing Lab: [facility] [address] EXTRA GOLD GEL TUBE RECEIVED Jun 21, 2024 05:24 PM [facility] COMPREHENSIVE METABOLIC PANEL+MG Specimen Type: PLASMA No comment entered. Ordering Provider: DELIA MARTINEZ Report Released Date/Time: Jun 21, 2024 05:30 PM Reporting Lab: [facility] [address] Performing Lab: [facility] [address] CREATININE 0.9 mg/dL 0.7-1.2 UREA NITROGEN 29 [...] 21, 2024 05:30 PM Reporting Lab: [facility] [address] Performing Lab: [facility] [address] WBC 21.3 H 4.0-11.0 RBC 5.48 4.60-6.20 [...] 28, 2024 09:02 AM Reporting Lab: [facility] [address] Performing Lab: [facility] [address] .INR 1.0 0.8-1.1 .PT 11.8 s 9.4-12.5 [...] 28, 2024 09:02 AM Reporting Lab: [facility] [address] Performing Lab: [facility] [address] HEMOGLOBIN A1C 4.9 4.0-6.0 Jun 08, 2024 10:59 AM [facility] CBC Specimen Type: BLOOD No comment entered. Ordering Provider: MARYBETH POWELL Report Released Date/Time: May 28, 2024 09:02 AM Reporting Lab: [facility] [address] Performing Lab: [facility] [address] WBC 16.1 H 4.0-11.0 RBC 5.02 4.60-6.20 [...] 28, 2024 09:02 AM Reporting Lab: [facility] [address] Performing Lab: [facility] [address] CREATININE 0.9 mg/dL 0.7-1.2 UREA NITROGEN 15 [...] Source Jun 23, 2024 10:28 PM 3 [employer] Jun 23, 2024 09:28 PM 4 [employer] Jun 23, 2024 06:07 PM 6 [employer] Jun 23, 2024 05:21 PM 7 [employer] Jun 23, 2024 05:36 AM 6 [employer] Social History: Smoking Status (Most current) and Tobacco Use (All prior to encounter date) This section includes the most current, and the historical, smoking and tobacco- related health factors from the [facility] where the Encounter took place. [...] the Encounter. The data comes from the [facility] where the Encounter took place. [...] 2 VIEWS PA AND LAT: FLACA WEAVER [id number] -1950 M Exm Date: JUL 08, 2024@10:09 Req Phys: KATELYNN PERSON Pat Loc: 2KG/07-08-2024@11:49 Img Loc: MAIN X-RAY Service: [place] [address] (Case 24 COMPLETE) CHEST 2 VIEWS PA AND LAT (RAD Detailed) CPT:07677 Reason for Study: Uptrending WBC, POD 5 Clinical History: Allen IS NOT under investigation for COVID-19 or is COVID-19 negative POD 5, work up for uptrending wbc Responsible provider name and phone number to notify for critical findings if other than user placing the order and pager listed below: User placing orders pager: Katelynn Person LAST CREATININE 0.9 (07/07/24) Report Status: Verified Date Reported: JUL 08, 2024 Date Verified: JUL 08, 2024 Respiratory Care Specialist E-Sig: Report: CHEST 2 VIEWS PA [...] cardiopulmonary disease. READING PHYSICIAN: Sarbjit Vaughn M.D. -[phone] 07/08/2024 12:46 EST [facility] National Teleradiology Program [phone] (For Medical Practitioner Use Only) Attention Patients / Veterans: If you have questions or concerns about these test results, please contact your ordering provider or primary care team. Primary Interpreting Staff: RADIOLOGY,OUTSIDE SERVICE, Staff Physician / RADIOLOGY,OUTSIDE SERVICE [facility] Jul 08, 2024 10:[address] (AP) ABDOMEN/PELVIS W CONTRAST: FLACA WEAVER [id number] -1950 M Exm Date: JUL 08, 2024@10:00 Req Phys: KATELYNN PERSON Pat Loc: 2KG/07-08-2024@12:07 Img Loc: CT IMAGING Service: [place] [address] (Case 22 COMPLETE) CT (AP) ABDOMEN/PELVIS W CONTRAST(CT Detailed) CPT:43526 Contrast Media : Non-ionic Iodinated Reason for [...] PLASMA .CREAT EGFR(CKD-E >90 Ref: >=60 Allergies: ([place] only) TERAZOSIN (Mar 13, 2015) Report Status: Verified Date Reported: JUL 08, 2024 Date Verified: JUL 08, 2024 Respiratory Care Specialist E-Sig: Report: CT (AP) ABDOMEN/PELVIS W [...] as noted above READING PHYSICIAN: Celestino Blanc -[phone] 07/08/2024 13:04 EST [facility] National [employer] Enterprises[employer] Program [phone] (For Medical Practitioner Use Only) Attention Patients / Veterans: If you have questions or concerns about these test results, please contact your ordering provider or primary care team. Primary Interpreting Staff: RADIOLOGY,OUTSIDE SERVICE, Staff Physician / RADIOLOGY,OUTSIDE SERVICE [facility] Jun 22, 2024 11:49 AM ABSCESS DRAIN PLACEMENT PERITONEAL (P): FLACA WEAVER [id number] -1950 M Exm Date: JUN 22, 2024@11:49 Req Phys: ANGELA HOLDEN Loc: [facility]/06-22-2024@17:14 Img Loc: INTERVENTIONAL RADIOLOGY Service: [place] [address] (Case [id number] COMPLETE) IR PERITONEAL/RETROPERITONEAL PER(ANI Detailed) CPT:11870 Reason for Study: diverticulitis with abscess (Case 3570 COMPLETE) IR MOD SEDATION 10-22 MIN (ANI Detailed) CPT:83558 Clinical History: IS NOT under investigation for COVID-19 or is COVID-19 negative 73 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 please place abscess drain. Contact number for responsible provider who can be reached for any questions or notifications of critical findings: [phone] n/a LAST CREATININE 0.9 (06/21/24) Report Status: Verified Date Reported: JUN 22, 2024 Date Verified: JUN 22, 2024 Respiratory Care Specialist E-Sig:/ES/LISA PENDLETON MD Report: PROCEDURES: Placement [...] anesthesia. Using real-time CT fluoroscopy, a 5 Tunisian Yueh centesis catheter was advanced into the collection in the left pelvis. A wire was coiled in the collection. The tract into the collection was dilated to accommodate the 12 Tunisian locking pigtail drainage catheter. There was return [...] Primary Interpreting Staff: LISA PENDLETON MD, RADIOLOGIST (Respiratory Care Specialist) /JRT LISA PENDLETON [facility] Jun 22, 2024 11:[address] NEEDLE PLACEMENT (P): FLACA WEAVER [id number] -1950 M Exm Date: JUN 22, 2024@11:48 Req Phys: ANGELA HOLDEN Loc: [facility]/06-22-2024@17:14 Img Loc: CT IMAGING Service: [place] [address] (Case [id number] COMPLETE) CT SCAN FOR NEEDLE PLACEMENT (CT Detailed) CPT:92080 Reason for Study: l pelvic abscess drain Clinical History: Report Status: Verified Date Reported: JUN 22, 2024 Date Verified: JUN 22, 2024 Respiratory Care Specialist E-Sig:/ES/LISA PENDLETON MD Report: PROCEDURES: Placement [...] anesthesia. Using real-time CT fluoroscopy, a 5 Tunisian Smartzeresis catheter was advanced into the collection in the left pelvis. A wire was coiled in the collection. The tract into the collection was dilated to accommodate the 12 Tunisian locking pigtail drainage catheter. There was return [...] Primary Interpreting Staff: LISA PENDLETON MD, RADIOLOGIST (Respiratory Care Specialist) /JRT LISA PENDLETON [facility] Jun 21, 2024 06:[address] (AP) ABDOMEN/PELVIS (P): FLACA WEAVER [id number] -1950 M Exm Date: JUN 21, 2024@18:09 Req Phys: DELIA MARTINEZ Loc: [facility] EMERGENCY DEPT WALK-IN (Re Img Loc: CT IMAGING Service: [place] [address] (Case [id number] COMPLETE) CT (AP) ABDOMEN/PELVIS W CONTRAST(CT Detailed) CPT:15508 Contrast Media : Non-ionic Iodinated Reason for [...] PLASMA .CREAT EGFR(CKD-E >90 Ref: >=60 Allergies: ([place] only) TERAZOSIN (Mar 13, 2015) Defer to [...] 21, 2024 Date Verified: JUN 21, 2024 Respiratory Care Specialist E-Sig:/ES/CARLOS A CUNNINGHAM DO Report: EXAMINATION: [...] Interpreting Staff: CARLOS A CUNNINGHAM DO, RADIOLOGIST (Respiratory Care Specialist) /KMB CARLOS A CUNNINGHAM [facility] May 25, 2024 09:00 AM IR FISTULOGRAM OR SINOGRAM : FLACA WEAVER [id number] -1950 M Exm Date: MAY 25, 2024@09:00 Req Phys: AMINTA PRUITT Loc: [facility] XRAY INTERVENTIONAL RADIO Img Loc: INTERVENTIONAL RADIOLOGY Service: [place] [address] (Case [id number] COMPLETE) IR FISTULOGRAM OR SINOGRAM (ANI Detailed) CPT:68249 Contrast Media : unspecified contrast media Reason for Study: s/p drain placement for diverticular abscess- assess for drain Clinical History: [place] IS NOT under investigation for COVID-19 or [...] 25, 2024 Date Verified: MAY 25, 2024 Respiratory Care Specialist E-Sig:/ES/DAVID BURNS MD Report: PROCEDURES 05/25/2024 [...] Primary Interpreting Staff: DAVID BURNS MD, RADIOLOGIST (Respiratory Care Specialist) /CSS DAVID BURNS [facility] May 25, 2024 08:[address] (AP) ABDOMEN/PELVIS (P): FLACA WEAVER [id number] -1950 M Exm Date: MAY 25, 2024@08:23 Req Phys: DAVID BURNS Pat Loc: MSP XRAY INTERVENTIONAL RADIO Img Loc: CT IMAGING Service: [place] [address] (Case [id number] COMPLETE) CT (AP) ABDOMEN/PELVIS W/O CONTRA(CT Detailed) CPT:07772 Reason for Study: assess abscess and possible [...] PLASMA .CREAT EGFR(CKD-E >90 Ref: >=60 Allergies: ([place] only) TERAZOSIN (Mar 13, 2015) Report Status: Verified Date Reported: MAY 25, 2024 Date Verified: MAY 25, 2024 Respiratory Care Specialist E-Sig:/ES/JESSENIA GOODMAN MD Report: EXAM: CT [...] pelvis 04/23/2024.; CT abdomen pelvis 05/05/2020 FINDINGS: SWING DRIVER: Pigtail catheter projecting over the left [...] Primary Interpreting Staff: JESSENIA GOODMAN MD, RADIOLOGIST (Respiratory Care Specialist) Primary Interpreting Resident: YOHANNES MELO DO, FIELD ARTILLERY OPERATIONS SPECIALIST /JESSENIA LOUIE [facility] Pathology Reports: [...] $APHDR Reporting Lab: [facility] [CLIA# [id number]] [place] [address] - - - - - - - [...] - PATHOLOGY REPORT Accession No. [id number] - - - - - - [...] - PATHOLOGY REPORT Accession No. [id number] - - - - - - - [...] Second circumferential surgical margin, en face; E-F: Spearer diverticula; G: Spearer section of mesentery; H: Random passenger service representative section of additional adipose tissue [...] colonic tissue ring, bisected transversely. [facility]: Microscopic examination performed. DIAGNOSIS: 1. Colon, sigmoid, sigmoidectomy-- - Diverticulosis with perforation and focal abscess formation 2. Colon, anastomotic rings, excision-- - Viable colonic mucosa without diagnostic abnormality /es/ EDUARDO PALOMARES MD STAFF PATHOLOGIST Signed Jul 06, 2024@10:40 Performing Laboratory: Surgical Pathology Report Performed By: [facility] [CLIA# [id number]] [place] [address] $FTR - - - - - - [...] - - FLACA WEAVER STANDARD FORM 515 ID:[id number] SEX:M :1950 AGE: 73 LOC:57292 ADM:Jun DX:DIVERTICULITIS PCP: Jatinder Cabrera /alexi/ EDUARDO PALOMARES MD STAFF PATHOLOGIST Signed: 07/06/2024 10:40 EDUARDO PALOMARES [facility] Jun 22, 2024 01:15 PM LR MICROBIOLOGY RE PORT: Reporting Lab: [facility] [CLIA# [id number]] [place] [address] Accession [UID]: [id number] [[id number]] Received: Jun 22, 2024@13:38 Collection sample: FLUID Collection date: Jun 22, 2024 13:15 Provider: ANGELA HOLDEN Comment on specimen: LLQ ABSCESS, RECEIVED IN ANAEROBIC TRANSPORT VIAL Test(s) ordered: GRAM STAIN.................... completed: Jun 22, 2024 15:03 CULTURE & SUSCEPTIBILITY...... completed: Jun 25, 2024 * BACTERIOLOGY FINAL REPORT => Jun 25, 2024 10:56 TECH CODE: [id number] GRAM STAIN: DIRECT SMEAR of specimen before [...] Report Performed By: [facility] [CLIA# [id number]] [place] [address] [facility] Jun 22, 2024 01:15 PM LR MICROBIOLOGY RE PORT: Reporting Lab: [facility] [CLIA# [id number]] [place] [address] Accession [UID]: [id number] [[id number]] Received: Jun 22, 2024@13:38 Collection sample: FLUID Collection date: Jun 22, 2024 13:15 Provider: ANGELA HOLDEN Comment on specimen: LLQ ABSCESS, RECEIVED IN ANAEROBIC TRANSPORT VIAL Test(s) ordered: ANAEROBIC CULTURE............. completed: Jun 28, 2024 * BACTERIOLOGY FINAL REPORT => Jun 28, 2024 10:08 TECH CODE: [id number] CULTURE RESULTS: HEAVY GROWTH MIXED ANAEROBES Comment: [...] Report Performed By: [facility] [CLIA# [id number]] [place] [address] [facility] Jun 21, 2024 06:12 PM LR MICROBIOLOGY RE PORT: Reporting Lab: [facility] [CLIA# [id number]] [place] [address] Accession [UID]: [id number] [[id number]] Received: Jun 21, 2024@18:12 Collection sample: BLOOD [...] Report Performed By: [facility] [CLIA# [id number]] [place] [address] [facility] Jun 21, 2024 06:11 PM LR MICROBIOLOGY RE PORT: Reporting Lab: [facility] [CLIA# [id number]] [place] [address] Accession [UID]: [id number] [[id number]] Received: Jun 21, 2024@18:11 Collection sample: BLOOD [...] Report Performed By: [facility] [CLIA# [id number]] [place] [id number] [place] [address] Jun 08, 2024 11:00 AM LR MICROBIOLOGY RE PORT: Reporting Lab: [facility] [CLIA# [id number]] [place] [address] Accession [UID]: [id number] [[id number]] Received: Jun 08, 2024@11:00 Collection sample: URINE Collection date: Jun 08, 2024 11:00 Provider: MARYBETH POWELL Comment on specimen: urine Test(s) ordered: CULTURE & SUSCEPTIBILITY...... completed: Jun 09, 2024 * BACTERIOLOGY FINAL REPORT => Jun 09, 2024 19:12 TECH CODE: [id number] CULTURE RESULTS: ESCHERICHIA COLI - Quantity: >100,000 [...] Report Performed By: [facility] [CLIA# [id number]] [address] [employer] [address] [facility]
--- OUTSIDE RECORDS SUMMARY | 2024-07-16 07:37 | XMS_ITS | Encounter Summary ---
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 Date/Time Encounter Type Encounter Description Reason Pro vider Source Jun 25, 2024 01:00 AM Inpatient Visit ADMIN PAT ACTIVTIES ([facility]) SYSTEM,[facility] Encounter Template Text not used [...] 27, 2024 07:00 AM AMBULATORY - NONE [facility] Jun 27, 2024 07:30 AM AMBULATORY - MEDICINE [facility] Jun 27, 2024 08:00 AM AMBULATORY - MEDICINE [facility] Jul 03, 2024 05:55 AM AMBULATORY - NONE [facility] Jul 13, 2024 08:15 AM AMBULATORY NONE [facility] Active, Pending, and Scheduled Orders This section includes a listing of several types of active, pending, and scheduled orders, including clinic medications orders, diagnostic test orders, procedure orders and consult orders; where the start date of the order is 45 days before the date of the Encounter or 45 days after the date of theEncounter. The data comes from all [facility]. Test Date/Time Test Type Test Details Facility Name May 28, 2024 12:00 AM Laboratory - Blood Bank Order TYPE & SCREEN - LAB BLOOD SP [facility] Jun 08, 2024 09:57 AM Laboratory - Chemi stry Order URINALYSIS URINE WC ONCE [facility] Jun 12, 2024 12:00 AM Laboratory - Chemi stry Order BNP PLASMA SP ONCE [facility] Jun 21, 2024 05:45 PM Laboratory - Blood Bank Order TYPE & SCREEN - LAB BLOOD [facility] Jul 03, 2024 12:00 AM Laboratory - Blood Bank Order TYPE & SCREEN - LAB BLOOD [facility] Jul 16, 2024 12:00 AM Laboratory - Chemi stry Order CBC BLOOD SP ONCE [facility] Jul 17, 2024 12:00 AM Laboratory - Chemi stry Order BASIC METABOLIC PANEL+MG PLASMA SP ONCE [facility] Lab Results: +/- 30 [...] Range Comment Jul 10, 2024 07:16 AM [facility] PHOSPHORUS Specimen Type: PLASMA No comment entered. Ordering Provider: JUANCARLOS ECHOLS Report Released Date/Time: Jul 09, 2024 12:23 PM Reporting Lab: [facility] [address] Performing Lab: [facility] [address] PHOSPHORUS 3.0 mg/dL 2.3-4.3 Jul 10, 2024 07:16 AM [facility] BASIC METABOLIC PANEL+MG Specimen Type: PLASMA No comment entered. Ordering Provider: JUANCARLOS ECHOLS S Report Released Date/Time: Jul 09, 2024 12:23 PM Reporting Lab: [facility] [address] Performing Lab: [facility] [address] CREATININE 0.7 mg/dL 0.7-1.2 UREA NITROGEN 27 mg/dL H 8-26 GLUCOSE 104 mg/dL H 70-100 SODIUM 133 mmol/L L 136-145 POTASSIUM 4.3 mmol/L 3.5-5.1 CHLORIDE 102 mmol/L 98-107 CO2 19 mmol/L L 22-29 CALCIUM 10.1 mg/dL 8.4-10.2 MAGNESIUM 1.9 mg/dL 1.6-2.6 ANION GAP 12 mmol/L 5-15 .CREAT EGFR(CKD-EPI) >90 >60 Jul 10, 2024 07:15 AM [facility] CBC Specimen Type: BLOOD No comment entered. Ordering Provider: JUANCARLOS ECHOLS S Report Released Date/Time: Jul 09, 2024 12:23 PM Reporting Lab: [facility] [address] Performing Lab: [facility] [address] WBC 18.8 H 4.0-11.0 RBC 5.08 4.60-6.20 HGB 15.9 g/dL 13.5-17.9 HCT 46.8 41.0-54.0 MCV 92.1 fL 80.0-100.0 MCH 31.3 pg 27.0-33.0 MCHC 34.0 g/dL 32.0-37.5 PLT 479 H 150-400 MPV 10.2 fL 9.1-13.0 RDW 13.7 11.5-14.5 Jul 09, 2024 07:08 AM [facility] CBC Specimen Type: BLOOD No comment entered. Ordering Provider: QUYNH WEISS AV Report Released Date/Time: Jul 08, 2024 06:18 PM Reporting Lab: [facility] [address] Performing Lab: [facility] [address] WBC 15.3 H 4.0-11.0 RBC 4.91 4.60-6.20 HGB 15.1 g/dL 13.5-17.9 HCT 45.7 41.0-54.0 MCV 93.1 fL 80.0-100.0 MCH 30.8 pg 27.0-33.0 MCHC 33.0 g/dL 32.0-37.5 PLT 443 H 150-400 MPV 10.0 fL 9.1-13.0 RDW 13.5 11.5-14.5 Jul 08, 2024 10:50 AM [facility] URINALYSIS Specimen Type: URINE No comment entered. Ordering Provider: KATELYNN PERSON Report Released Date/Time: Jul 08, 2024 08:41 AM Reporting Lab: [facility] [address] Performing Lab: [facility] [address] URINE COLOR YELLOW SPECIFIC GRAVITY >1.050 H [...] NEGATIVE NEGATIVE Jul 08, 2024 09:54 AM [facility] CBC Specimen Type: BLOOD Comment: Specimen received in Lab at: 0952 Ordering Provider: JUANCARLOS ECHOLS Report Released Date/Time: Jul 07, 2024 04:49 PM Reporting Lab: [facility] [address] Performing Lab: [facility] [address] WBC 17.5 H 4.0-11.0 RBC 4.88 4.60-6.20 HGB 14.9 g/dL 13.5-17.9 HCT 45.7 41.0-54.0 MCV 93.6 fL 80.0-100.0 MCH 30.5 pg 27.0-33.0 MCHC 32.6 g/dL 32.0-37.5 PLT 472 H 150-400 MPV 10.2 fL 9.1-13.0 RDW 13.7 11.5-14.5 Jul 08, 2024 09:54 AM [facility] PHOSPHORUS Specimen Type: PLASMA Comment: Specimen received in Lab at: 0952 Ordering Provider: JUANCARLOS ECHOLS Report Released Date/Time: Jul 07, 2024 04:49 PM Reporting Lab: [facility] [address] Performing Lab: [facility] [address] PHOSPHORUS 2.6 mg/dL 2.3-4.3 Jul 08, 2024 09:54 AM [facility] BASIC METABOLIC PANEL+MG Specimen Type: PLASMA Comment: Specimen received in Lab at: 0952 Ordering Provider: JUANCARLOS ECHOLS Report Released Date/Time: Jul 07, 2024 04:49 PM Reporting Lab: [facility] [address] Performing Lab: [facility] [address] CREATININE 0.9 mg/dL 0.7-1.2 UREA NITROGEN 26 mg/dL 8-26 GLUCOSE 128 mg/dL H 70-100 SODIUM 134 mmol/L L 136-145 POTASSIUM 3.4 mmol/L L 3.5-5.1 CHLORIDE 100 mmol/L 98-107 CO2 24 mmol/L 22-29 CALCIUM 9.8 mg/dL 8.4-10.2 MAGNESIUM 1.8 mg/dL 1.6-2.6 ANION GAP 10 mmol/L 5-15 .CREAT EGFR(CKD-EPI) >90 >60 Jul 07, 2024 02:00 PM [facility] C DIFF PANEL Specimen Type: FECES No comment entered. Ordering Provider: JEVON ZAZUETA Report Released Date/Time: Jul 07, 2024 12:26 PM Reporting Lab: [facility] [address] Performing Lab: [facility] [address] C DIFF TOX B GENE PCR NEGATIVE Negative Jul 07, 2024 07:41 AM [facility] PHOSPHORUS Specimen Type: PLASMA No comment entered. Ordering Provider: JEVON ZAZUETA Report Released Date/Time: Jul 06, 2024 03:44 PM Reporting Lab: [facility] [address] Performing Lab: [facility] [address] PHOSPHORUS 3.1 mg/dL 2.3-4.3 Jul 07, 2024 07:41 AM [facility] BASIC METABOLIC PANEL+MG Specimen Type: PLASMA No comment entered. Ordering Provider: JEVON ZAZUETA Report Released Date/Time: Jul 06, 2024 03:44 PM Reporting Lab: [facility] [address] Performing Lab: [facility] [address] CREATININE 0.9 mg/dL 0.7-1.2 UREA NITROGEN 20 mg/dL 8-26 GLUCOSE 157 mg/dL H 70-100 SODIUM 136 mmol/L 136-145 POTASSIUM 3.7 mmol/L 3.5-5.1 CHLORIDE 102 mmol/L 98-107 CO2 21 mmol/L L 22-29 CALCIUM 9.8 mg/dL 8.4-10.2 MAGNESIUM 1.9 mg/dL 1.6-2.6 ANION GAP 13 mmol/L 5-15 .CREAT EGFR(CKD-EPI) >90 >60 Jul 07, 2024 07:40 AM [facility] CBC Specimen Type: BLOOD No comment entered. Ordering Provider: JEVON ZAZUETA Report Released Date/Time: Jul 06, 2024 03:44 PM Reporting Lab: [facility] [address] Performing Lab: [facility] [address] WBC 21.2 H 4.0-11.0 RBC 5.09 4.60-6.20 HGB 15.9 g/dL 13.5-17.9 HCT 48.3 41.0-54.0 MCV 94.9 fL 80.0-100.0 MCH 31.2 pg 27.0-33.0 MCHC 32.9 g/dL 32.0-37.5 PLT 500 H 150-400 MPV 10.3 fL 9.1-13.0 RDW 13.6 11.5-14.5 Jul 06, 2024 07:21 AM [facility] CBC Specimen Type: BLOOD No comment entered. Ordering Provider: JEVON ZAZUETA Report Released Date/Time: Jul 05, 2024 01:22 PM Reporting Lab: [facility] [address] Performing Lab: [facility] [address] WBC 18.0 H 4.0-11.0 RBC 4.83 4.60-6.20 HGB 14.6 g/dL 13.5-17.9 HCT 45.5 41.0-54.0 MCV 94.2 fL 80.0-100.0 MCH 30.2 pg 27.0-33.0 MCHC 32.1 g/dL 32.0-37.5 PLT 368 150-400 MPV 10.4 fL 9.1-13.0 RDW 13.6 11.5-14.5 Jul 06, 2024 07:21 AM [facility] PHOSPHORUS Specimen Type: PLASMA No comment entered. Ordering Provider: JEVON ZAZUETA Report Released Date/Time: Jul 05, 2024 01:22 PM Reporting Lab: [facility] [address] Performing Lab: [facility] [address] PHOSPHORUS 3.6 mg/dL 2.3-4.3 Jul 06, 2024 07:21 AM [facility] BASIC METABOLIC PANEL+MG Specimen Type: PLASMA No comment entered. Ordering Provider: JEVON ZAZUETA Report Released Date/Time: Jul 05, 2024 01:22 PM Reporting Lab: [facility] [address] Performing Lab: [facility] [address] CREATININE 0.7 mg/dL 0.7-1.2 UREA NITROGEN 12 mg/dL 8-26 GLUCOSE 108 mg/dL H 70-100 SODIUM 138 mmol/L 136-145 POTASSIUM 3.4 mmol/L L 3.5-5.1 CHLORIDE 104 mmol/L 98-107 CO2 20 mmol/L L 22-29 CALCIUM 9.3 mg/dL 8.4-10.2 MAGNESIUM 1.9 mg/dL 1.6-2.6 ANION GAP 14 mmol/L 5-15 .CREAT EGFR(CKD-EPI) >90 >60 Jul 05, 2024 07:17 AM [facility] MAGNESIUM Specimen Type: PLASMA No comment entered. Ordering Provider: JUANCARLOS ECHOLS Report Released Date/Time: Jul 04, 2024 09:39 AM Reporting Lab: [facility] [address] Performing Lab: [facility] [address] MAGNESIUM 2.0 mg/dL 1.6-2.6 Jul 05, 2024 07:17 AM [facility] PHOSPHORUS Specimen Type: PLASMA No comment entered. Ordering Provider: JUANCARLOS ECHOLS S Report Released Date/Time: Jul 04, 2024 09:39 AM Reporting Lab: [facility] [address] Performing Lab: [facility] [address] PHOSPHORUS 2.0 mg/dL L 2.3-4.3 Jul 05, 2024 07:17 AM [facility] BASIC METABOLIC PANEL+MG Specimen Type: PLASMA No comment entered. Ordering Provider: JUANCARLOS ECHOLS S Report Released Date/Time: Jul 04, 2024 09:39 AM Reporting Lab: [facility] [address] Performing Lab: [facility] [address] CREATININE 0.7 mg/dL 0.7-1.2 UREA NITROGEN 12 mg/dL 8-26 GLUCOSE 84 mg/dL 70-100 SODIUM 135 mmol/L L 136-145 POTASSIUM 3.8 mmol/L 3.5-5.1 CHLORIDE 104 mmol/L 98-107 CO2 24 mmol/L 22-29 CALCIUM 9.3 mg/dL 8.4-10.2 MAGNESIUM 2.0 mg/dL 1.6-2.6 ANION GAP 7 mmol/L 5-15 .CREAT EGFR(CKD-EPI) >90 >60 Jul 05, 2024 07:16 AM [facility] CBC Specimen Type: BLOOD No comment entered. Ordering Provider: JUANCARLOS ECHOLS S Report Released Date/Time: Jul 04, 2024 09:39 AM Reporting Lab: [facility] [address] Performing Lab: [facility] [address] WBC 18.3 H 4.0-11.0 RBC 4.49 L 4.60-6.20 HGB 14.1 g/dL 13.5-17.9 HCT 43.4 41.0-54.0 MCV 96.7 fL 80.0-100.0 MCH 31.4 pg 27.0-33.0 MCHC 32.5 g/dL 32.0-37.5 PLT 317 150-400 MPV 10.0 fL 9.1-13.0 RDW 13.9 11.5-14.5 Jul 04, 2024 07:17 AM [facility] PHOSPHORUS Specimen Type: PLASMA No comment entered. Ordering Provider: GABINO CAMERON Report Released Date/Time: Jul 03, 2024 06:31 PM Reporting Lab: [facility] [address] Performing Lab: [facility] [address] PHOSPHORUS 2.8 mg/dL 2.3-4.3 Jul 04, 2024 07:17 AM [facility] BASIC METABOLIC PANEL+MG Specimen Type: PLASMA No comment entered. Ordering Provider: GABINO CAMERON Report Released Date/Time: Jul 03, 2024 06:31 PM Reporting Lab: [facility] [address] Performing Lab: [facility] [address] CREATININE 0.7 mg/dL 0.7-1.2 UREA NITROGEN 16 mg/dL 8-26 GLUCOSE 129 mg/dL H 70-100 SODIUM 137 mmol/L 136-145 POTASSIUM 3.7 mmol/L 3.5-5.1 CHLORIDE 107 mmol/L 98-107 CO2 22 mmol/L 22-29 CALCIUM 9.0 mg/dL 8.4-10.2 MAGNESIUM 1.9 mg/dL 1.6-2.6 ANION GAP 8 mmol/L 5-15 .CREAT EGFR(CKD-EPI) >90 >60 Jul 04, 2024 07:16 AM [facility] CBC Specimen Type: BLOOD No comment entered. Ordering Provider: GABINO CAMERON Report Released Date/Time: Jul 03, 2024 06:31 PM Reporting Lab: [facility] [address] Performing Lab: [facility] [address] WBC 20.6 H 4.0-11.0 RBC 4.63 4.60-6.20 HGB 14.2 g/dL 13.5-17.9 HCT 43.4 41.0-54.0 MCV 93.7 fL 80.0-100.0 MCH 30.7 pg 27.0-33.0 MCHC 32.7 g/dL 32.0-37.5 PLT 329 150-400 MPV 10.4 fL 9.1-13.0 RDW 13.8 11.5-14.5 Jul 04, 2024 07:16 AM [facility] CBC & DIFF Specimen Type: BLOOD Comment: Manual Differential Performed Ordering Provider: GABINO CAMERON Report Released Date/Time: Jul 03, 2024 06:31 PM Reporting Lab: [facility] [address] Performing Lab: [facility] [address] WBC 20.6 H 4.0-11.0 RBC 4.63 4.60-6.20 [...] MORPHOLOGY PRESENT Jul 04, 2024 07:15 AM [facility] BNP Specimen Type: PLASMA No comment entered. Ordering Provider: GABINO CAMERON Report Released Date/Time: Jul 03, 2024 06:31 PM Reporting Lab: [facility] [address] Performing Lab: [facility] [address] BNP 292 pg/mL H <99 Jul 03, 2024 10:32 PM [facility] FINGERSTICK GLUCOSE Specimen Type: BLOOD Comment: Save Result Nurse Notified Ordering Provider: KATELYNN PERSON Report Released Date/Time: Jul 03, 2024 10:50 PM Reporting Lab: [facility] [address] Performing Lab: [facility] [address] FINGERSTICK GLUCOSE 126 mg/dL H 70-100 Jul 03, 2024 05:33 PM [facility] FINGERSTICK GLUCOSE Specimen Type: BLOOD Comment: Save Result Nurse Notified Ordering Provider: KATELYNN PERSON Report Released Date/Time: Jul 03, 2024 05:46 PM Reporting Lab: [facility] [address] Performing Lab: [facility] [address] FINGERSTICK GLUCOSE 141 mg/dL H 70-100 Jul 03, 2024 02:31 PM [facility] POC ABG/ELECTROLYTES Specimen Type: ARTERIAL BLOOD Comment: FIO2 = 97% Patient Temp: 36.0 C Sample Type = ARTERIAL Ordering Provider: MAZIN ARREDONDO Report Released Date/Time: Jul 03, 2024 01:48 PM Reporting Lab: [facility] [address] Performing Lab: [facility] [address] POC PH 7.387 7.35-7.45 POC PCO2 34.4 [...] H 80.0-105.0 Jul 03, 2024 01:05 PM [facility] POC ABG/ELECTROLYTES Specimen Type: ARTERIAL BLOOD Comment: FIO2 = 53% Patient Temp: 36.2 C Sample Type = ARTERIAL Ordering Provider: MAZIN ARREDONDO Report Released Date/Time: Jul 03, 2024 01:48 PM Reporting Lab: [facility] [address] Performing Lab: [facility] [address] POC PH 7.280 L 7.35-7.45 POC PCO2 [...] mm[Hg] 80.0-105.0 Jul 03, 2024 06:15 AM [facility] URINALYSIS Specimen Type: URINE No comment entered. Ordering Provider: MARYBETH POWELL Report Released Date/Time: Jun 12, 2024 04:01 PM Reporting Lab: [facility] [address] Performing Lab: [facility] [address] URINE COLOR YELLOW SPECIFIC GRAVITY 1.031 1.003-1.03 [...] 250 NEGATIVE Jul 03, 2024 06:13 AM [facility] CBC Specimen Type: BLOOD No comment entered. Ordering Provider: MARYBETH POWELL Report Released Date/Time: Jun 12, 2024 03:59 PM Reporting Lab: [facility] [address] Performing Lab: [facility] [address] WBC 15.8 H 4.0-11.0 RBC 5.11 4.60-6.20 HGB 16.1 g/dL 13.5-17.9 HCT 49.1 41.0-54.0 MCV 96.1 fL 80.0-100.0 MCH 31.5 pg 27.0-33.0 MCHC 32.8 g/dL 32.0-37.5 PLT 357 150-400 MPV 9.8 fL 9.1-13.0 RDW 13.7 11.5-14.5 Jun 24, 2024 09:50 AM [facility] BASIC METABOLIC PANEL+MG Specimen Type: PLASMA Comment: Specimen received in Lab at: 0948 Ordering Provider: JEVON ZAZUETA Report Released Date/Time: Jun 23, 2024 06:07 PM Reporting Lab: [facility] [address] Performing Lab: [facility] [address] CREATININE 0.8 mg/dL 0.7-1.2 UREA NITROGEN 13 mg/dL 8-26 GLUCOSE 135 mg/dL H 70-100 SODIUM 135 mmol/L L 136-145 POTASSIUM 3.6 mmol/L 3.5-5.1 CHLORIDE 103 mmol/L 98-107 CO2 24 mmol/L 22-29 CALCIUM 9.2 mg/dL 8.4-10.2 MAGNESIUM 1.9 mg/dL 1.6-2.6 ANION GAP 8 mmol/L 5-15 .CREAT EGFR(CKD-EPI) >90 >60 Jun 24, 2024 09:50 AM [facility] CBC Specimen Type: BLOOD Comment: Specimen received in Lab at: 0948 Ordering Provider: JEVON ZAZUETA Report Released Date/Time: Jun 23, 2024 06:07 PM Reporting Lab: [facility] [address] Performing Lab: [facility] [address] WBC 15.5 H 4.0-11.0 RBC 4.93 4.60-6.20 HGB 15.2 g/dL 13.5-17.9 HCT 46.5 41.0-54.0 MCV 94.3 fL 80.0-100.0 MCH 30.8 pg 27.0-33.0 MCHC 32.7 g/dL 32.0-37.5 PLT 223 150-400 MPV 11.4 fL 9.1-13.0 RDW 13.9 11.5-14.5 Jun 23, 2024 07:52 AM [facility] COMPREHENSIVE METABOLIC PANEL+MG Specimen Type: PLASMA No comment entered. Ordering Provider: JEVON ZAZUETA Report Released Date/Time: Jun 22, 2024 05:51 PM Reporting Lab: [facility] [address] Performing Lab: [facility] [address] CREATININE 0.7 mg/dL 0.7-1.2 UREA NITROGEN 16 [...] >90 >60 Jun 23, 2024 07:52 AM [facility] CBC & DIFF Specimen Type: BLOOD Comment: Automated Differential Performed Ordering Provider: JEVON ZAZUETA Report Released Date/Time: Jun 22, 2024 05:51 PM Reporting Lab: [facility] [address] Performing Lab: [facility] [address] WBC 14.9 H 4.0-11.0 RBC 5.09 4.60-6.20 [...] 0.1 0.0-0.1 Jun 22, 2024 06:10 PM [facility] CBC Specimen Type: BLOOD No comment entered. Ordering Provider: JEVON ZAZUETA Report Released Date/Time: Jun 22, 2024 05:51 PM Reporting Lab: [facility] [address] Performing Lab: [facility] [address] WBC 16.9 H 4.0-11.0 RBC 5.28 4.60-6.20 HGB 16.9 g/dL 13.5-17.9 HCT 50.4 41.0-54.0 MCV 95.5 fL 80.0-100.0 MCH 32.0 pg 27.0-33.0 MCHC 33.5 g/dL 32.0-37.5 PLT 223 150-400 MPV 10.9 fL 9.1-13.0 RDW 14.0 11.5-14.5 Jun 22, 2024 06:10 PM [facility] COMPREHENSIVE METABOLIC PANEL+MG Specimen Type: PLASMA No comment entered. Ordering Provider: JEVON ZAZUETA Report Released Date/Time: Jun 22, 2024 05:51 PM Reporting Lab: [facility] [address] Performing Lab: [facility] [address] CREATININE 0.7 mg/dL 0.7-1.2 UREA NITROGEN 17 [...] >90 >60 Jun 21, 2024 06:48 PM [facility] URINALYSIS Specimen Type: URINE No comment entered. Ordering Provider: DELIA MARTINEZ Report Released Date/Time: Jun 21, 2024 05:45 PM Reporting Lab: [facility] [address] Performing Lab: [facility] [address] URINE COLOR YELLOW SPECIFIC GRAVITY 1.041 H [...] 500 NEGATIVE Jun 21, 2024 05:34 PM [facility] POC CREATININE Specimen Type: BLOOD No comment entered. Ordering Provider: DELIA MARTINEZ Report Released Date/Time: Jun 21, 2024 06:07 PM Reporting Lab: [facility] [address] Performing Lab: [facility] [address] POC CREATININE 1.1 mg/dL 0.6-1.3 Jun 21, 2024 05:30 PM [facility] POC ABG/LACTATE Specimen Type: VENOUS BLOOD No comment entered. Ordering Provider: DELIA MARTINEZ Report Released Date/Time: Jun 21, 2024 06:07 PM Reporting Lab: [facility] [address] Performing Lab: [facility] [address] POC PH 7.470 H 7.31-7.41 POC PCO2 31.2 mm[Hg] L 41.00-51 .0 0 POC PO2 46 mm[Hg] H 35.0-40.0 POC TCO2 24 mmol/L 24.0-29.0 POC HCO3 22.7 mmol/L L 23.0-28.0 POC BE ECT -1 mmol/L POC SO2 85 H 70-75 POC LACTATE 1.85 mmol/L 0.90-1.70 Jun 21, 2024 05:24 PM [facility] PROTHROMBIN TIME/INR Specimen Type: PLASMA No comment entered. Ordering Provider: DELIA MARTINEZ Report Released Date/Time: Jun 21, 2024 05:30 PM Reporting Lab: [facility] [address] Performing Lab: [facility] [address] .INR 1.2 H 0.8-1.1 .PT 13.9 s H 9.4-12.5 Jun 21, 2024 05:24 PM [facility] LIPASE Specimen Type: PLASMA No comment entered. Ordering Provider: DELIA MARTINEZ Report Released Date/Time: Jun 21, 2024 05:30 PM Reporting Lab: [facility] [address] Performing Lab: [facility] [address] LIPASE 32 U/L <60 Jun 21, 2024 05:24 PM [facility] EXTRA GOLD GEL TUBE Specimen Type: SERUM No comment entered. Ordering Provider: DELIA MARTINEZ Report Released Date/Time: Jun 21, 2024 05:41 PM Reporting Lab: [facility] [address] Performing Lab: [facility] [address] EXTRA GOLD GEL TUBE RECEIVED Jun 21, 2024 05:24 PM [facility] COMPREHENSIVE METABOLIC PANEL+MG Specimen Type: PLASMA No comment entered. Ordering Provider: DELIA MARTINEZ Report Released Date/Time: Jun 21, 2024 05:30 PM Reporting Lab: [facility] [address] Performing Lab: [facility] [address] CREATININE 0.9 mg/dL 0.7-1.2 UREA NITROGEN 29 [...] mg/dL <0.5 Jun 21, 2024 05:24 PM [facility] CBC & DIFF Specimen Type: BLOOD Comment: Manual Differential Performed Ordering Provider: DELIA MARTINEZ Report Released Date/Time: Jun 21, 2024 05:30 PM Reporting Lab: [facility] [address] Performing Lab: [facility] [address] WBC 21.3 H 4.0-11.0 RBC 5.48 4.60-6.20 [...] MORPHOLOGY PRESENT Jun 08, 2024 10:59 AM [facility] PROTHROMBIN TIME/INR Specimen Type: PLASMA No comment entered. Ordering Provider: MARYBETH POWELL Report Released Date/Time: May 28, 2024 09:02 AM Reporting Lab: [facility] [address] Performing Lab: [facility] [address] .INR 1.0 0.8-1.1 .PT 11.8 s 9.4-12.5 Jun 08, 2024 10:59 AM [facility] HEMOGLOBIN A1C Specimen Type: [...] 2024 09:02 AM Reporting Lab: [facility] [address] Performing Lab: [facility] [address] HEMOGLOBIN A1C 4.9 4.0-6.0 Jun 08, 2024 10:59 AM [facility] CBC Specimen Type: BLOOD No comment entered. Ordering Provider: MARYBETH POWELL Report Released Date/Time: May 28, 2024 09:02 AM Reporting Lab: [facility] [address] Performing Lab: [facility] [id number] WBC 16.1 H 4.0-11.0 RBC 5.02 4.60-6.20 HGB 16.0 g/dL 13.5-17.9 HCT 47.1 41.0-54.0 MCV 93.8 fL 80.0-100.0 MCH 31.9 pg 27.0-33.0 MCHC 34.0 g/dL 32.0-37.5 PLT 228 150-400 MPV 10.3 fL 9.1-13.0 RDW 14.6 H 11.5-14.5 Jun 08, 2024 10:59 AM [facility] BASIC METABOLIC PANEL+MG Specimen Type: PLASMA No comment entered. Ordering Provider: MARYBETH POWELL Report Released Date/Time: May 28, 2024 09:02 AM Reporting Lab: [facility] [id number] Performing Lab: [facility] [phone] CREATININE 0.9 mg/dL 0.7-1.2 UREA NITROGEN 15 [...] Source Jun 25, 2024 01:51 AM 3 [facility] Social History: Smoking Status [...] 15, 2024 08:30 AM VA-TOBACCO FORMER USER [facility] Tobacco Use History This section includes a history of the smoking, or tobacco-related health factors, that were collected on or before the date of the Encounter. The data comes from the [place] facility where the Encounter took place. Date/Time Smoking Status/Tobacco Use Comment F acility May 15, 2024 08:30 AM [place]-TOBACCO QUIT 15 YRS OR MORE [facility] May 06, 2023 11:30 AM VA-TOBACCO FORMER USER [facility] May 06, 2023 11:30 AM [place]-TOBACCO QUIT 15 YRS OR MORE [facility] Jun 04, 2022 09:00 AM VA-TOBACCO FORMER USER [facility] Jun 04, 2022 09:00 AM VA-TOBACCO QUIT 15 YRS OR MORE [facility] Jul 10, 2021 08:00 AM VA-TOBACCO FORMER USER [facility] Jul 10, 2021 08:00 AM VA-TOBACCO QUIT 5 TO < 15 YRS [facility] May 23, 2020 08:30 AM VA-TOBACCO FORMER USER [facility] May 23, 2020 08:30 AM VA-TOBACCO QUIT 5 TO < 15 YRS [facility] Mar 20, 2019 04:03 PM VA-TOBACCO FORMER USER [facility] Mar 20, 2019 04:03 PM VA-TOBACCO QUIT 5 TO < 15 YRS [facility] Mar 21, 2018 08:13 AM FORMER TOBACCO USER 7Y OR GREATE R [facility] Feb 24, 2017 09:24 AM FORMER TOBACCO USER 7Y OR GREATE R [facility] January 07, 2016 08:01 AM FORMER TOBACCO USE >1Y <7Y [facility] Feb 03, 2015 07:58 AM FORMER TOBACCO USE <1Y [facility] Feb 26, 2014 08:41 AM CURRENT TOBACCO USER [facility] May 13, 2011 01:45 PM CURRENT TOBACCO USER [facility] Advance Directives: All historical [...] VIEWS PA A ND LAT: FLACA WEAVER [id number] -[id number] M Exm Date: JUL 08, 2024@10:09 Req Phys: KATELYNN PERSON Loc: G07-08-2024@11:49 Img Loc: MAIN X-RAY Service: [place] [address] (Case 24 COMPLETE) CHEST 2 VIEWS PA AND LAT (RAD Detailed) CPT:70408 Reason for Study: Uptrending WBC, POD 5 Clinical History: [place] IS NOT under investigation for COVID-19 or is COVID-19 negative POD 5, work up for uptrending wbc Responsible provider name and phone number to notify for critical findings if other than user placing the order and pager listed below: User placing orders pager: Katelynn Person LAST CREATININE 0.9 (07/07/24) Report Status: Verified Date Reported: JUL 08, 2024 Date Verified: JUL 08, 2024 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 FINDINGS: Lungs: Clear. No focal consolidation. No pulmonary edema. Pleura: No pleural effusion or pneumothorax. Mediastinum: Normal size and contour. Bones: Unremarkable. Impression: No acute cardiopulmonary disease. READING PHYSICIAN: Sarbjit Vaughn M.D. -[phone] 07/08/2024 12:46 EST [facility] National Teleradiology Program [phone] (For Medical Practitioner Use Only) Attention Patients / Veterans: If you have questions or concerns about these test results, please contact your ordering provider or primary care team. Primary Interpreting Staff: RADIOLOGY,OUTSIDE SERVICE, Staff Physician / RADIOLOGY,OUTSIDE SERVICE [facility] Jul 08, 2024 10:[address] (AP) ABDOMEN/PE LVIS W CONTRAST: FLACA WEAVER [id number] -1950 M Ex Date: JUL 08, 2024@10:00 Req Phys: KATELYNN PERSON Pat Loc: 07-08-2024@12:07 Img Loc: CT IMAGING Service: [place] [address] (Case [id number] COMPLETE) CT (AP) ABDOMEN/PELVIS W CONTRAST(CT Detailed) CPT:25426 Contrast Media : Non-ionic Iodinated Reason for [...] PLASMA .CREAT EGFR(CKD-E >90 Ref: >=60 Allergies: ([facility] only) TERAZOSIN (Mar 13, 2015) Report Status: Verified Date Reported: JUL 08, 2024 Date Verified: JUL 08, 2024 Drilling Machine Operator E-Sig: Report: CT (AP) ABDOMEN/PELVIS W CONTRAST HISTORY: POD 5, Uptrending WBC - Concern for Abscess/other infection COMPARISON: June 21, 2024 TECHNIQUE: CT abdomen and pelvis was performed after intravenous contrast. Axial, sagittal and coronal reformatted images. The study was performed at the local [place] facility and images were sent to the [...] as noted above READING PHYSICIAN: Celestino Blanc -[phone] 07/08/2024 13:[address] [facility] [employer] Teleradiology Program [phone] (For Medical Practitioner Use Only) Attention Patients / Veterans: If you have questions or concerns about these test results, please contact your ordering provider or primary care team. Primary Interpreting Staff: RADIOLOGY,OUTSIDE SERVICE, Staff Physician / RADIOLOGY,OUTSIDE SERVICE [facility] Jun 22, 2024 11:49 AM ABSCESS DRAIN PLAC EMENT PERITONEAL (P): FLACA WEAVER [id number] -1950 M Exm Date: JUN 22, 2024@11:49 Req Phys: ANGELA HOLDEN Loc: [facility]06-22-2024@17:14 Img Loc: INTERVENTIONAL RADIOLOGY Service: [place] [address] (Case [id number] COMPLETE) IR PERITONEAL/RETROPERITONEAL PER(ANI Detailed) CPT:37975 Reason for Study: diverticulitis with abscess (Case 3570 COMPLETE) IR MOD SEDATION 10-22 MIN (ANI Detailed) CPT:73737 Clinical History: IS NOT under investigation for COVID-19 or is COVID-19 negative 73 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 please place abscess drain. Contact number for responsible provider who can be reached for any questions or notifications of critical findings: [phone] n/a LAST CREATININE 0.9 (06/21/24) Report Status: Verified Date Reported: JUN 22, 2024 Date Verified: JUN 22, 2024 Drilling Machine Operator E-Sig:/ES/LISA PENDLETON MD Report: PROCEDURES: [...] Using real-time CT fluoroscopy, a 5 [employer]esis catheter was advanced into the collection in [...] Primary Interpreting Staff: LISA PENDLETON MD, RADIOLOGIST (Drilling Machine Operator) /JRLISA [facility] Jun 22, 2024 11:[address] NEEDLE PLACEMEN T (P): FLACA WEAVER [id number] -1950 M Exm Date: JUN 22, 2024@11:48 Req Phys: ANGELA HOLDEN Loc: [facility]/06-22-2024@17:14 Img Loc: CT [facility] [place] [address] (Case [id number] COMPLETE) CT SCAN FOR NEEDLE PLACEMENT (CT Detailed) CPT:53847 Reason for Study: l pelvic abscess drain Clinical History: Report Status: Verified Date Reported: JUN 22, 2024 Date Verified: JUN 22, 2024 Drilling Machine Operator E-Sig:/ES/LISA PENDLETON MD Report: PROCEDURES: [...] Using real-time CT fluoroscopy, a 5 [employer]esis catheter was advanced into the collection in [...] Primary Interpreting Staff: LISA PENDLETON MD, RADIOLOGIST (Drilling Machine Operator) /JRT LISA PENDLETON [facility] Jun 21, 2024 06:[address] (AP) ABDOMEN/PE LVIS (P): FLACA WEAVER [id number] -1950 M Exm Date: JUN 21, 2024@18:09 Req Phys: DELIA MARTINEZ Pat Loc: [facility] EM[facility]PT WALK-[facility] (Re Img Loc: CT IMAGING Service: [place] [address] (Case [id number] COMPLETE) CT (AP) ABDOMEN/PELVIS W CONTRAST(CT Detailed) CPT:85902 Contrast Media : Non-ionic Iodinated Reason for [...] PLASMA .CREAT EGFR(CKD-E >90 Ref: >=60 Allergies: ([facility] only) TERAZOSIN (Mar 13, 2015) Defer to [...] 21, 2024 Date Verified: JUN 21, 2024 Drilling Machine Operator E-Sig:/ALEXI/CARLOS A CUNNINGHAM DO Report: [...] Interpreting Staff: CARLOS A CUNNINGHAM DO, RADIOLOGIST (Drilling Machine Operator) /CARLOS A ROWELL [facility] Pathology Reports: +/- 30 [...] COSIGNER: URGENCY: STATUS: COMPLETED $APHDR Reporting Lab: [facility] [CLIA# [id number]] [place] [address] - - - - - - - [...] - PATHOLOGY REPORT Accession No. [id number] - - - - - - - [...] - PATHOLOGY REPORT Accession No. [id number] - - - - - - - [...] Second circumferential surgical margin, en face; E-F: Soldering Machine Tender diverticula; G: Soldering Machine Tender section of mesentery; H: Random outside medical sales representative section of additional adipose tissue [...] Performing Laboratory: Surgical Pathology Report Performed By: [facility] [CLIA# [id number]] [place] [address] $FTR - - - - - - [...] - - FLACA WEAVER STANDARD FORM 515 ID:[id number] SEX:M :1950 AGE: 73 LOC:25355 ADM:Jun DX:DIVERTICULITIS PCP: Jatinder Cabrera /alexi/ EDUARDO PALOMARES MD STAFF PATHOLOGIST Signed: 07/06/2024 10:40 EDUARDO PALOMARES [facility] Jun 22, 2024 01:15 PM LR MICROBIOLOGY RE PORT: Reporting Lab: [facility] [CLIA# [id number]] [place] [address] Accession [UID]: [id number] [[id number]] Received: Jun 22, 2024@13:38 Collection sample: FLUID Collection date: Jun 22, 2024 13:15 Provider: ANGELA HOLDEN Comment on specimen: LLQ ABSCESS, RECEIVED IN ANAEROBIC TRANSPORT VIAL Test(s) ordered: GRAM STAIN.................... completed: Jun 22, 2024 15:03 CULTURE & SUSCEPTIBILITY...... completed: Jun 25, 2024 * BACTERIOLOGY FINAL REPORT => Jun 25, 2024 10:56 TECH CODE: [id number] GRAM STAIN: DIRECT SMEAR of specimen before [...] -=--=--=--=--=--=--=-- Performing Laboratory: Bacteriology Report Performed By: [facility] [CLIA# [id number]] [place] [address] [facility] Jun 22, 2024 01:15 PM LR MICROBIOLOGY RE PORT: Reporting Lab: [facility] [CLIA# [id number]] [place] [address] Accession [UID]: [id number] [[id number]] Received: Jun 22, 2024@13:38 Collection sample: FLUID Collection date: Jun 22, 2024 13:15 Provider: ANGELA HOLDEN Comment on specimen: LLQ ABSCESS, RECEIVED IN ANAEROBIC TRANSPORT VIAL Test(s) ordered: ANAEROBIC CULTURE............. completed: Jun 28, 2024 * BACTERIOLOGY FINAL REPORT => Jun 28, 2024 10:08 TECH CODE: [id number] CULTURE RESULTS: HEAVY GROWTH MIXED ANAEROBES Comment: including the followin+ Bacteroides fragilis 4+ Bacteroides vulgatus 4+ Clostridium innocuum Beta-lactamase negative 4+ Bacteroides caccae 4+ Parvimonas micra 4+ Bacteroides uniformis 4+ Gemella morbillorum 4+ anaerobic small, Gram Positive Rods 4+ Bacteroides thetaiotaomicron Standard workup is now complete. Bacteriology Remark(s): THIS REPORT IS FINAL =--=--=--=--=--=--=--=--=--= --=--=--=--=--=--=--=--=--=- -=--=--=--=--=--=--=-- Performing Laboratory: Bacteriology Report Performed By: [facility] [CLIA# [id number]] [place] [address] [facility] Jun 21, 2024 06:12 PM LR MICROBIOLOGY RE PORT: Reporting Lab: [facility] [CLIA# [id number]] [place] [address] Accession [UID]: [id number] [[id number]] Received: Jun 21, 2024@18:12 Collection sample: BLOOD [...] -=--=--=--=--=--=--=-- Performing Laboratory: Bacteriology Report Performed By: [facility] [CLIA# [id number]] [place] [address] [facility] Jun 21, 2024 06:11 PM LR MICROBIOLOGY RE PORT: Reporting Lab: [facility] [CLIA# [id number]] [place] [address] Accession [UID]: [id number] [[id number]] Received: Jun 21, 2024@18:11 Collection sample: BLOOD [...] -=--=--=--=--=--=--=-- Performing Laboratory: Bacteriology Report Performed By: [facility] [CLIA# [id number]] [place] [address] [facility] Jun 08, 2024 11:00 AM LR MICROBIOLOGY RE PORT: Reporting Lab: [facility] [CLIA# [id number]] [place] [address] Accession [UID]: [id number] [[id number]] Received: Jun 08, 2024@11:00 Collection sample: URINE Collection date: Jun 08, 2024 11:00 Provider: MARYBETH POWELL Comment on specimen: urine Test(s) ordered: CULTURE & SUSCEPTIBILITY...... completed: Jun 09, 2024 * BACTERIOLOGY FINAL REPORT => Jun 09, 2024 19:12 TECH CODE: [id number] CULTURE RESULTS: ESCHERICHIA COLI - Quantity: >100,000 [...] -=--=--=--=--=--=--=-- Performing Laboratory: Bacteriology Report Performed By: [facility] [CLIA# [id number]] [address] [place] [address] [facility] Encounter Notes: All associated encounter notes This section contains the clinical notes associated to the Encounter. Date/Time Encounter Note(s) Provider Source Jun 25, 2024 01:00 AM CRITICAL CARE UNIT NOTE: LOCAL TITLE: ICCA INPATIENT FLOWSHEET STANDARD TITLE: CRITICAL CARE UNIT NOTE DATE OF NOTE: JUN 25, 2024@01:00 ENTRY DATE: JUN 26, 2024@14:43:45 AUTHOR: SYSTEM[email or web address] EXP COSIGNER: URGENCY: STATUS: COMPLETED This is a place aranda only. Please see [facility] to view document. /es/ [email or web address] SYSTEM ICU DOCUMENT IMPORT Signed: 06/26/2024 14:43 [email or web address] [facility] Jun 25, 2024 01:00 AM CRITICAL CARE UNIT NOTE: LOCAL TITLE: ICCA RESPIRATORY THERAPY FLOWSHEET STANDARD TITLE: CRITICAL CARE UNIT NOTE DATE OF NOTE: JUN 25, 2024@01:00 ENTRY DATE: JUN 26, 2024@15:14:13 AUTHOR: SYSTEM[email or web address] EXP COSIGNER: URGENCY: STATUS: COMPLETED This is a place aranda only. Please see [facility] to view document. /es/ [email or web address] SYSTEM ICU DOCUMENT IMPORT Signed: 06/26/2024 15:14 [employer] [facility]
--- OUTSIDE RECORDS SUMMARY | 2024-07-16 07:38 | XMS_ITS | Encounter Summary ---
Author Name [facility] [place] [facility] [place] [facility] [place] Address [address] [place] [address] Care Team Providers Care Fabric Stretcher Name Role Phone JATINDER CABRERA Primary Care [...] PART A Sep 29, 2016 PART A [id number] [phone] JUDY WEAVER PATIENT Selected Encounter This section includes the information on record at [place] for the Encounter. Date/Time Encounter Type Encounter Description Reason Pro vider Source Jul 02, 2024 08:37 AM Outpatient Encounter TELEPHONE TRIAGE IHE Encounter [...] 03, 2024 05:55 AM [facility] Jul 13, 2024 08:15 AM AMBULATORY - NONE [facility] Active, Pending, and [...] of theEncounter. The data comes from all [place] treatment facilities. Test Date/Time Test Type Test [...] SCREEN - LAB BLOOD WC [facility] Jul 03, 2024 12:00 AM Laboratory - Blood Bank Order TYPE & SCREEN - LAB BLOOD WC [facility] Jul 16, 2024 12:00 [...] Reporting Lab: [facility] [address] Performing Lab: [facility] [address] PHOSPHORUS 3.0 mg/dL 2.3-4.3 Jul 10, 2024 07:16 AM [facility] BASIC METABOLIC PANEL+MG Specimen Type: PLASMA No comment entered. Ordering Provider: JUANCARLOS ECHOLS S Report Released Date/Time: Jul 09, 2024 12:23 PM Reporting Lab: [facility] [address] Performing Lab: [facility] [address] CREATININE 0.7 mg/dL 0.7-1.2 UREA NITROGEN 27 [...] Reporting Lab: [facility] [address] Performing Lab: [facility] [address] WBC 18.8 H 4.0-11.0 RBC 5.08 4.60-6.20 [...] Reporting Lab: [facility] [address] Performing Lab: [facility] [address] WBC 15.3 H 4.0-11.0 RBC 4.91 4.60-6.20 [...] Reporting Lab: [facility] [address] Performing Lab: [facility] [address] URINE COLOR YELLOW SPECIFIC GRAVITY >1.050 H [...] Reporting Lab: [facility] [address] Performing Lab: [facility] [address] WBC 17.5 H 4.0-11.0 RBC 4.88 4.60-6.20 [...] Reporting Lab: [facility] [address] Performing Lab: [facility] [address] PHOSPHORUS 2.6 mg/dL 2.3-4.3 Jul 08, 2024 09:54 AM [facility] BASIC METABOLIC PANEL+MG Specimen Type: PLASMA Comment: Specimen received in Lab at: 0952 Ordering Provider: JUANCARLOS ECHOLS S Report Released Date/Time: Jul 07, 2024 04:49 PM Reporting Lab: [facility] [address] Performing Lab: [facility] [address] CREATININE 0.9 mg/dL 0.7-1.2 UREA NITROGEN 26 [...] Reporting Lab: [facility] [address] Performing Lab: [facility] [address] C DIFF TOX B GENE PCR NEGATIVE Negative Jul 07, 2024 07:41 AM [facility] PHOSPHORUS Specimen Type: PLASMA No comment entered. Ordering Provider: JEVON ZAZUETA Report Released Date/Time: Jul 06, 2024 03:44 PM Reporting Lab: [facility] [address] Performing Lab: [facility] [address] PHOSPHORUS 3.1 mg/dL 2.3-4.3 Jul 07, 2024 07:41 AM [facility] BASIC METABOLIC PANEL+MG Specimen Type: PLASMA No comment entered. Ordering Provider: JEVON ZAZUETA Report Released Date/Time: Jul 06, 2024 03:44 PM Reporting Lab: [facility] [address] Performing Lab: [facility] [address] CREATININE 0.9 mg/dL 0.7-1.2 UREA NITROGEN 20 [...] Reporting Lab: [facility] [address] Performing Lab: [facility] [address] WBC 21.2 H 4.0-11.0 RBC 5.09 4.60-6.20 [...] Reporting Lab: [facility] [address] Performing Lab: [facility] [address] WBC 18.0 H 4.0-11.0 RBC 4.83 4.60-6.20 [...] Reporting Lab: [facility] [address] Performing Lab: [facility] [address] PHOSPHORUS 3.6 mg/dL 2.3-4.3 Jul 06, 2024 07:21 AM [facility] BASIC METABOLIC PANEL+MG Specimen Type: PLASMA No comment entered. Ordering Provider: JEVON ZAZUETA Report Released Date/Time: Jul 05, 2024 01:22 PM Reporting Lab: [facility] [address] Performing Lab: [facility] [address] CREATININE 0.7 mg/dL 0.7-1.2 UREA NITROGEN 12 [...] Reporting Lab: [facility] [address] Performing Lab: [facility] [address] MAGNESIUM 2.0 mg/dL 1.6-2.6 Jul 05, 2024 07:17 AM [facility] PHOSPHORUS Specimen Type: PLASMA No comment entered. Ordering Provider: JUANCARLOS ECHOLS S Report Released Date/Time: Jul 04, 2024 09:39 AM Reporting Lab: [facility] [address] Performing Lab: [facility] [address] PHOSPHORUS 2.0 mg/dL L 2.3-4.3 Jul 05, 2024 07:17 AM [facility] BASIC METABOLIC PANEL+MG Specimen Type: PLASMA No comment entered. Ordering Provider: JUANCARLOS ECHOLS S Report Released Date/Time: Jul 04, 2024 09:39 AM Reporting Lab: [facility] [address] Performing Lab: [facility] [address] CREATININE 0.7 mg/dL 0.7-1.2 UREA NITROGEN 12 [...] Reporting Lab: [facility] [address] Performing Lab: [facility] [address] WBC 18.3 H 4.0-11.0 RBC 4.49 L [...] Reporting Lab: [facility] [address] Performing Lab: [facility] [address] CREATININE 0.7 mg/dL 0.7-1.2 UREA NITROGEN 16 [...] Reporting Lab: [facility] [address] Performing Lab: [facility] [address] PHOSPHORUS 2.8 mg/dL 2.3-4.3 Jul 04, 2024 07:16 AM [facility] CBC Specimen Type: BLOOD No comment entered. Ordering Provider: GABINO CAMERON Report Released Date/Time: Jul 03, 2024 06:31 PM Reporting Lab: [facility] [address] Performing Lab: [facility] [address] WBC 20.6 H 4.0-11.0 RBC 4.63 4.60-6.20 [...] Reporting Lab: [facility] [address] Performing Lab: [facility] [address] WBC 20.6 H 4.0-11.0 RBC 4.63 4.60-6.20 [...] Reporting Lab: [facility] [address] Performing Lab: [facility] [address] BNP 292 pg/mL H <99 Jul 03, 2024 10:32 PM [facility] FINGERSTICK GLUCOSE Specimen Type: BLOOD Comment: Save Result Nurse Notified Ordering Provider: KATELYNN PERSON Report Released Date/Time: Jul 03, 2024 10:50 PM Reporting Lab: [facility] [address] Performing Lab: [facility] [address] FINGERSTICK GLUCOSE 126 mg/dL H 70-100 Jul 03, 2024 05:33 PM [facility] FINGERSTICK GLUCOSE Specimen Type: BLOOD Comment: Save Result Nurse Notified Ordering Provider: KATELYNN PERSON Report Released Date/Time: Jul 03, 2024 05:46 PM Reporting Lab: [facility] [address] Performing Lab: [facility] [address] FINGERSTICK GLUCOSE 141 mg/dL H 70-100 Jul 03, 2024 02:31 PM [facility] POC ABG/ELECTROLYTES Specimen Type: ARTERIAL BLOOD Comment: FIO2 = 97% Patient Temp: 36.0 C Sample Type = ARTERIAL Ordering Provider: MAZIN ARREDONDO Report Released Date/Time: Jul 03, 2024 01:48 PM Reporting Lab: [facility] [address] Performing Lab: [facility] [address] POC PH 7.387 7.35-7.45 POC PCO2 34.4 [...] Reporting Lab: [facility] [address] Performing Lab: [facility] [address] POC PH 7.280 L 7.35-7.45 POC PCO2 [...] Reporting Lab: [facility] [address] Performing Lab: [facility] [address] URINE COLOR YELLOW SPECIFIC GRAVITY 1.031 1.003-1.03 [...] Reporting Lab: [facility] [address] Performing Lab: [facility] [address] WBC 15.8 H 4.0-11.0 RBC 5.11 4.60-6.20 [...] Reporting Lab: [facility] [address] Performing Lab: [facility] [address] CREATININE 0.8 mg/dL 0.7-1.2 UREA NITROGEN 13 [...] Reporting Lab: [facility] [address] Performing Lab: [facility] [address] WBC 15.5 H 4.0-11.0 RBC 4.93 4.60-6.20 [...] Reporting Lab: [facility] [address] Performing Lab: [facility] [address] CREATININE 0.7 mg/dL 0.7-1.2 UREA NITROGEN 16 [...] Reporting Lab: [facility] [address] Performing Lab: [facility] [address] WBC 14.9 H 4.0-11.0 RBC 5.09 4.60-6.20 [...] Reporting Lab: [facility] [address] Performing Lab: [facility] [address] WBC 16.9 H 4.0-11.0 RBC 5.28 4.60-6.20 [...] Reporting Lab: [facility] [address] Performing Lab: [facility] [address] CREATININE 0.7 mg/dL 0.7-1.2 UREA NITROGEN 17 [...] Reporting Lab: [facility] [address] Performing Lab: [facility] [address] URINE COLOR YELLOW SPECIFIC GRAVITY 1.041 H [...] Reporting Lab: [facility] [address] Performing Lab: [facility] [address] POC CREATININE 1.1 mg/dL 0.6-1.3 Jun 21, 2024 05:30 PM [facility] POC ABG/LACTATE Specimen Type: VENOUS BLOOD No comment entered. Ordering Provider: DELIA MARTINEZ Report Released Date/Time: Jun 21, 2024 06:07 PM Reporting Lab: [facility] [address] Performing Lab: [facility] [address] POC PH 7.470 H 7.31-7.41 POC PCO2 [...] Reporting Lab: [facility] [address] Performing Lab: [facility] [address] .INR 1.2 H 0.8-1.1 .PT 13.9 s H 9.4-12.5 Jun 21, 2024 05:24 PM [facility] LIPASE Specimen Type: PLASMA No comment entered. Ordering Provider: DELIA MARTINEZ Report Released Date/Time: Jun 21, 2024 05:30 PM Reporting Lab: [facility] [address] Performing Lab: [facility] [address] LIPASE 32 U/L <60 Jun 21, 2024 05:24 PM [facility] EXTRA GOLD GEL TUBE Specimen Type: SERUM No comment entered. Ordering Provider: DELIA MARTINEZ Report Released Date/Time: Jun 21, 2024 05:41 PM Reporting Lab: [facility] [address] Performing Lab: [facility] [address] EXTRA GOLD GEL TUBE RECEIVED Jun 21, 2024 05:24 PM [facility] COMPREHENSIVE METABOLIC PANEL+MG Specimen Type: PLASMA No comment entered. Ordering Provider: DELIA MARTINEZ Report Released Date/Time: Jun 21, 2024 05:30 PM Reporting Lab: [facility] [address] Performing Lab: [facility] [address] CREATININE 0.9 mg/dL 0.7-1.2 UREA NITROGEN 29 [...] Reporting Lab: [facility] [address] Performing Lab: [facility] [address] WBC 21.3 H 4.0-11.0 RBC 5.48 4.60-6.20 [...] Reporting Lab: [facility] [address] Performing Lab: [facility] [address] .INR 1.0 0.8-1.1 .PT 11.8 s 9.4-12.5 [...] Reporting Lab: [facility] [address] Performing Lab: [facility] [address] HEMOGLOBIN A1C 4.9 4.0-6.0 Jun 08, 2024 10:59 AM [facility] CBC Specimen Type: BLOOD No comment entered. Ordering Provider: MARYBETH POWELL Report Released Date/Time: May 28, 2024 09:02 AM Reporting Lab: [facility] [address] Performing Lab: [facility] [address] WBC 16.1 H 4.0-11.0 RBC 5.02 4.60-6.20 [...] Reporting Lab: [facility] [address] Performing Lab: [facility] [address] CREATININE 0.9 mg/dL 0.7-1.2 UREA NITROGEN 15 [...] VIEWS PA A ND LAT: MEGFLACA YAMIL [id number] -1950 M Exm Date: JUL 08, 2024@10:09 Req Phys: KATELYNN PERSON Pat Loc: 2KG/07-08-2024@11:49 Img Loc: MAIN X-RAY Service: [place] [address] (Case [id number] COMPLETE) CHEST 2 VIEWS PA AND LAT (RAD Detailed) CPT:61699 Reason for Study: Uptrending WBC, POD 5 Clinical History: [place] IS NOT under investigation for COVID-19 or is COVID-19 negative POD 5, work up for uptrending wbc Responsible provider name and phone number to notify for critical findings if other than user placing the order and pager listed below: User placing orders pager: Katelynn Person LAST CREATININE 0.9 (07/07/24) Report Status: Verified Date Reported: JUL 08, 2024 Date Verified: JUL 08, 2024 City Councilman E-Sig: Report: CHEST 2 VIEWS PA AND LAT HISTORY: Uptrending WBC, POD 5 COMPARISON: CT chest 11/12/2022 TECHNIQUE: Frontal and lateral views of the chest, submitted to the [place] National Teleradiology Program (NTP) for interpretation. FINDINGS: Lungs: Clear. No focal consolidation. No pulmonary edema. Pleura: No pleural effusion or pneumothorax. Mediastinum: Normal size and contour. Bones: Unremarkable. Impression: No acute cardiopulmonary disease. READING PHYSICIAN: Sarbjit Vaughn M.D. -[phone] 07/08/2024 12:46 EST [facility] National Teleradiology Program [phone] (For Medical Practitioner Use Only) Attention Patients / Veterans: If you have questions or concerns about these test results, please contact your ordering provider or primary care team. Primary Interpreting Staff: RADIOLOGY,OUTSIDE SERVICE, Staff Physician / RADIOLOGY,OUTSIDE SERVICE [facility] Jul 08, 2024 10:[address] (AP) ABDOMEN/PE LVIS W CONTRAST: MEGFLACA YAMIL [id number] -1950 M Ex Date: JUL 08, 2024@10:00 Req Phys: KATELYNN PERSON [facility] Loc: 2KG/07-08-2024@12:07 Img Loc: CT IMAGING Service: [place] [address] (Case 22 COMPLETE) CT (AP) ABDOMEN/PELVIS W CONTRAST(CT Detailed) CPT:03108 Contrast Media : Non-ionic Iodinated Reason for [...] PLASMA .CREAT EGFR(CKD-E >90 Ref: >=60 Allergies: ([place] only) TERAZOSIN (Mar 13, 2015) Report Status: Verified Date Reported: JUL 08, 2024 Date Verified: JUL 08, 2024 City Councilman E-Sig: Report: CT (AP) ABDOMEN/PELVIS W CONTRAST HISTORY: POD 5, Uptrending WBC - Concern for Abscess/other infection COMPARISON: June 21, 2024 TECHNIQUE: CT abdomen and pelvis was performed after intravenous contrast. Axial, sagittal and coronal reformatted images. The study was performed at the local [place] facility and images were sent to the [place] National Teleradiology Program (NTP) for interpretation. Number [...] as noted above READING PHYSICIAN: Celestino Blanc -[phone] 07/08/2024 13:04 [facility] [phone] (For Medical Practitioner Use Only) Attention Patients / Veterans: If you have questions or concerns about these test results, please contact your ordering provider or primary care team. Primary Interpreting Staff: RADIOLOGY,OUTSIDE SERVICE, Staff Physician / RADIOLOGY,OUTSIDE SERVICE [facility] Jun 22, 2024 11:49 AM ABSCESS DRAIN PLAC EMENT PERITONEAL (P): FLACA WEAVER [id number] -1950 M Exm Date: JUN 22, 2024@11:49 Req Phys: ANGELA HOLDEN Pat Loc: [facility]06-22-2024@17:14 Img Loc: INTERVENTIONAL RADIOLOGY Service: [place] [address] (Case [id number] COMPLETE) IR PERITONEAL/RETROPERITONEAL PER(ANI Detailed) CPT:50863 Reason for Study: diverticulitis with abscess (Case 3570 COMPLETE) IR MOD SEDATION 10-22 MIN (ANI Detailed) CPT:65568 Clinical History: [place] IS NOT under investigation for COVID-19 or is COVID-19 negative 73 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 please place abscess drain. Contact number for responsible provider who can be reached for any questions or notifications of critical findings: [phone] n/a LAST CREATININE 0.9 (06/21/24) Report Status: Verified Date Reported: JUN 22, 2024 Date Verified: JUN 22, 2024 City Councilman E-Sig:/ES/LISA PENDLETON MD Report: PROCEDURES: Placement of [...] Using real-time CT fluoroscopy, a 5 [place] [employer]esis catheter was advanced into the collection in the left pelvis. A wire was coiled in the collection. The tract into the collection was dilated to accommodate the 12 [place] locking pigtail drainage catheter. There was return [...] Primary Interpreting Staff: LISA PENDLETON MD, RADIOLOGIST (City Councilman) /JRT LISA PENDLETON [facility] Jun 22, 2024 11:[address] NEEDLE PLACEMEN T (P): FLACA WEAVER [id number] -1950 M Exm Date: JUN 22, 2024@11:48 Req Phys: ANGELA HOLDEN Loc: [facility]06-22-2024@17:14 Im Loc: CT IMAGING Service: [place] [address] (Case [id number] COMPLETE) CT SCAN FOR NEEDLE PLACEMENT (CT Detailed) CPT:72264 Reason for Study: l pelvic abscess drain Clinical History: Report Status: Verified Date Reported: JUN 22, 2024 Date Verified: JUN 22, 2024 City Councilman E-Sig:/ES/LISA PENDLETON MD Report: PROCEDURES: Placement of [...] Using real-time CT fluoroscopy, a 5 [place] [employer]esis catheter was advanced into the collection in the left pelvis. A wire was coiled in the collection. The tract into the collection was dilated to accommodate the 12 [place] locking pigtail drainage catheter. There was return [...] Primary Interpreting Staff: LISA PENDLETON MD, RADIOLOGIST (City Councilman) /JRT LISA PENDLETON [facility] Jun 21, 2024 06:[address] (AP) ABDOMEN/PE LVIS (P): FLACA WEAVER YAMIL [id number] -1950 M Exm Date: JUN 21, 2024@18:09 Req Phys: DELIA MARTINEZ Loc: [facility] (Re Img Loc: CT IMAGING Service: [place] [address] (Case [id number] COMPLETE) CT (AP) ABDOMEN/PELVIS W CONTRAST(CT Detailed) CPT:38463 Contrast Media : Non-ionic Iodinated Reason for [...] PLASMA .CREAT EGFR(CKD-E >90 Ref: >=60 Allergies: ([place] only) TERAZOSIN (Mar 13, 2015) Defer to [...] 21, 2024 Date Verified: JUN 21, 2024 City Councilman E-Sig:/ALEXI/CARLOS A CUNNINGHAM DO Report: EXAMINATION: CT [...] Interpreting Staff: CARLOS A CUNNINGHAM DO, RADIOLOGIST (City Councilman) /CARLOS A ROWELL [facility] Pathology [...] $APHDR Reporting Lab: [facility] [CLIA# [id number]] [address] [facility] [place] [address] - - - - - - - [...] - - - PATHOLOGY REPORT Accession No. [id number] - - - - - - - [...] - PATHOLOGY REPORT Accession No. [id number] - - - - - - - [...] Second circumferential surgical margin, en face; E-F: [place] diverticula; G: [place] section of mesentery; H: Random automobile rental [...] One colonic tissue ring, bisected transversely. SS. (D)[facility] MICROSCOPIC DESCRIPTION: Microscopic examination performed. DIAGNOSIS: 1. Colon, sigmoid, sigmoidectomy-- - Diverticulosis with perforation and focal abscess formation 2. Colon, anastomotic rings, excision-- - Viable colonic mucosa without diagnostic abnormality /es/ EDUARDO PALOMARES MD STAFF PATHOLOGIST Signed Jul 06, 2024@10:40 Performing Laboratory: Surgical Pathology Report Performed By: [facility] [CLIA# [id number]] [place] [address] $FTR - - - - - - [...] - - FLACA WEAVER STANDARD FORM 515 ID:[id number] SEX:M :1950 AGE: 73 LOC:37376 ADM:Jun DX:DIVERTICULITIS PCP: Jatinder Cabrera /alexi/ EDUARDO PALOMARES MD STAFF PATHOLOGIST Signed: 07/06/2024 10:40 EDUARDO PALOMARES [facility] Jun 22, 2024 01:15 PM LR MICROBIOLOGY RE PORT: Reporting Lab: [facility] [CLIA# [id number]] [place] [address] Accession [UID]: [id number] [[id number]] Received: Jun 22, 2024@13:38 Collection sample: FLUID Collection date: Jun 22, 2024 13:15 Provider: ANGELA HOLDEN Comment on specimen: LLQ ABSCESS, RECEIVED IN ANAEROBIC TRANSPORT VIAL Test(s) ordered: GRAM STAIN.................... completed: Jun 22, 2024 15:03 CULTURE & SUSCEPTIBILITY...... completed: Jun 25, 2024 * BACTERIOLOGY FINAL REPORT => Jun 25, 2024 10:56 TECH CODE: [id number] GRAM STAIN: DIRECT SMEAR of specimen before [...] Report Performed By: [facility] [CLIA# [id number]] [place] [address] [facility] Jun 22, 2024 01:15 PM LR MICROBIOLOGY RE PORT: Reporting Lab: [facility] [CLIA# [id number]] [place] [address] Accession [UID]: [id number] [[id number]] Received: Jun 22, 2024@13:38 Collection sample: FLUID Collection date: Jun 22, 2024 13:15 Provider: ANGELA HOLDEN Comment on specimen: LLQ ABSCESS, RECEIVED IN ANAEROBIC TRANSPORT VIAL Test(s) ordered: ANAEROBIC CULTURE............. completed: Jun 28, 2024 * BACTERIOLOGY FINAL REPORT => Jun 28, 2024 10:08 TECH CODE: [id number] CULTURE RESULTS: HEAVY GROWTH MIXED ANAEROBES Comment: [...] Report Performed By: [facility] [CLIA# [id number]] [place] [address] [facility] Jun 21, 2024 06:12 PM LR MICROBIOLOGY RE PORT: Reporting Lab: [facility] [CLIA# [id number]] [address] Accession [UID]: [id number] [[id number]] Received: Jun 21, 2024@18:12 Collection sample: BLOOD [...] Report Performed By: [facility] [CLIA# [id number]] [place] [address] [facility] Jun 21, 2024 06:11 PM LR MICROBIOLOGY RE PORT: Reporting Lab: [facility] [IA# [id number]] [address] Accession [UID]: [id number] [[id number]] Received: Jun 21, 2024@18:11 Collection sample: BLOOD [...] Report Performed By: [facility] [CLIA# [id number]] [place] [address] [facility] Jun 08, 2024 11:00 AM LR MICROBIOLOGY RE PORT: Reporting Lab: [facility] [IA# [id number]] [address] Accession [UID]: [id number] [[id number]] Received: Jun 08, 2024@11:00 Collection sample: URINE Collection date: Jun 08, 2024 11:00 Provider: MARYBETH POWELL Comment on specimen: urine Test(s) ordered: CULTURE & SUSCEPTIBILITY...... completed: Jun 09, 2024 * BACTERIOLOGY FINAL REPORT => Jun 09, 2024 19:12 TECH CODE: [id number] CULTURE RESULTS: ESCHERICHIA COLI - Quantity: >100,000 [...] Report Performed By: [facility] [CLIA# [id number]] [place] [address] [facility] Encounter Notes: All associated encounter notes This section contains the clinical notes associated to the Encounter. Date/Time Encounter Note(s) Provider Source Jul 02, 2024 09:14 AM ADDENDUM: LOCAL TITLE: Addendum STANDARD TITLE: ADDENDUM DATE OF NOTE: JUL 02, 2024@09:14:44 ENTRY DATE: JUL 02, 2024@09:14:45 AUTHOR: WICKERSHEIM,JOSEPH EXP COSIGNER: URGENCY: STATUS: COMPLETED Alerting Colorectal registered nurse surgical services to this note for further assistance. /jerome ESCOBAR RN REGISTERED NURSE Signed: 07/02/2024 09:15 Receipt Acknowledged By: 07/02/2024 12:20 /jerome QUEEN RN REGISTERED NURSE for RAMIRO FABIAN 07/02/2024 12:20 /jerome QUEEN RN REGISTERED NURSE ====== --- Original Document --- 07/02/24 CCC: CLINICAL TRIAGE: Patient Demographics Patient Name: FLACA WEAVER Patient Primary Address: [address] [place] [address] Patient Primary Phone: [phone] Patient : 1950 Patient Age: 73 Caller/Recipient Relation to Patient: Self Emergency Contact: NIMO PIÑA Nursing Plan and Disposition Other course(s) of action Alternative course of action Alternative courses of action: general surgery Nurse Summary Nurse Summary: NURSING NOTES Pt calls stating he has colon surgery on 07/03/24 and has questions about taking his prep for the surgery tomorrow. Pt called for same concern on 06/30/24 (see notes in CPRS) This engineering technical writer unable to reach general surgery at this time, left a detailed message with veterans information will also place additional signers for general surgery to assist further. Pt was very upset because he did not have any directions what to do for his surgery tomorrow, when this engineering technical writer was informing that messages have been left on his behalf and someone should be calling him back he stated you're all fucking worthless and hung up the phone. Referring to general surgery to assist further. This note was created by a [address] supervisor instrument maintenance. Please do not alert this nurse by adding as a signer for future communications. Alerts are not monitored by this user, if needed please reach out to [facility] instead if indicted Clinical Contact Center Codes Clinic/Location: [address] PHONE CCC RN IMPORTANT: This note was created by [facility] Contact Center staff. Please do not alert the staff member by adding them as a signer for future communications. Alerts are not monitored by this user. /alexi/ OSORIO BEARD RN VISN 23 Daytime compound mixer Signed: 07/02/2024 08:37 Receipt Acknowledged By: 07/02/2024 10:12 /alexi/ JOSEPH ESCOBAR RN REGISTERED NURSE JOSEPH ESCOBAR [facility] Jul 02, 2024 08:37 AM RN PROGRESS NOTE: LOCAL TITLE: CCC: CLINICAL TRIAGE STANDARD TITLE: RN PROGRESS NOTE DATE OF NOTE: JUL 02, 2024@08:37:07 ENTRY DATE: JUL 02, 2024@08:37:07 AUTHOR: CHAPO BEARD EXP COSIGNER: URGENCY: STATUS: COMPLETED CCC: CLINICAL TRIAGE Has ADDENDA Patient Demographics Patient Name: FLACA WEAVER Patient Primary Address: [address] [place] [address] Patient Primary Phone: [phone] Patient : 1950 Patient Age: 73 Caller/Recipient Relation to Patient: Self Emergency Contact: NIMO PIÑA Nursing Plan and Disposition Other course(s) of action Alternative course of action Alternative courses of action: general surgery Nurse Summary Nurse Summary: NURSING NOTES Pt calls stating he has colon surgery on 07/03/24 and has questions about taking his prep for the surgery tomorrow. Pt called for same concern on 06/30/24 (see notes in CPRS) This engineering technical writer unable to reach general surgery at this time, left a detailed message with veterans information will also place additional signers for general surgery to assist further. Pt was very upset because he did not have any directions what to do for his surgery tomorrow, when this engineering technical writer was informing that messages have been left on his behalf and someone should be calling him back he stated you're all fucking worthless and hung up the phone. Referring to general surgery to assist further. This note was created by a [address] supervisor instrument maintenance. Please do not alert this nurse by adding as a signer for future communications. Alerts are not monitored by this user, if needed please reach out to [facility] instead if indicted Clinical Contact Center Codes Clinic/Location: [address] RN IMPORTANT: This note was created by [facility] Contact [facility] staff. Please do not alert the staff member by adding them as a signer for future communications. Alerts are not monitored by this user. /alexi/ OSORIO BEARD RN VISN 23 Daytime compound mixer Signed: 07/02/2024 08:37 Receipt Acknowledged By: 07/02/2024 10:12 /alexi/ JOSEPH ESCOBAR RN REGISTERED NURSE 07/02/2024 ADDENDUM STATUS: COMPLETED Alerting Colorectal registered nurse surgical services to this note for further assistance. /es/ JOSEPH WICKERSHEIM, RN REGISTERED NURSE Signed: 07/02/2024 09:15 Receipt Acknowledged By: * AWAITING SIGNATURE * RAMIRO FABIAN * AWAITING SIGNATURE * EDUARDO QUEEN KELLY J [facility]
--- OUTSIDE RECORDS SUMMARY | 2024-07-16 07:38 | XMS_ITS | Encounter Summary ---
Author Name [facility] [place] [facility] [place] Address [address] [place] [address] Care Team Providers Care Pumping Station Supervisor Name Role Phone JATINDER CABRERA Primary [...] PART A Sep 29, 2016 PART A [id number] [phone] JUDY WEAVER PATIENT Selected Encounter This section includes the information on [place] at [place] for the Encounter. Date/Time Encounter Type Encounter Description Reason Pro vider Source Jun 30, 2024 10:30 AM Outpatient Encounter TELEPHONE TRIAGE IHE Encounter [...] 03, 2024 05:55 [facility] Jul 13, 2024 08:15 AM [facility] - NONE [facility] TYPE & SCREEN - LAB BLOOD WC [facility] Jul 03, 2024 12:00 AM Laboratory - Blood Bank Order TYPE & SCREEN - LAB BLOOD WC [facility] Jul 16, 2024 12:00 AM Laboratory [...] 2024 12:23 PM Reporting Lab: [facility] [address] Performing Lab: [facility] [address] PHOSPHORUS 3.0 mg/dL 2.3-4.3 Jul 10, 2024 07:16 AM [facility] BASIC METABOLIC PANEL+MG Specimen Type: PLASMA No comment entered. Ordering Provider: JUANCARLOS ECHOLS S Report Released Date/Time: Jul 09, 2024 12:23 PM Reporting Lab: [facility] [address] Performing Lab: [facility] [address] CREATININE 0.7 mg/dL 0.7-1.2 UREA NITROGEN 27 [...] 2024 12:23 PM Reporting Lab: [facility] [address] Performing Lab: [facility] [address] WBC 18.8 H 4.0-11.0 RBC 5.08 4.60-6.20 [...] 2024 06:18 PM Reporting Lab: [facility] [address] Performing Lab: [facility] [address] WBC 15.3 H 4.0-11.0 RBC 4.91 4.60-6.20 [...] 2024 08:41 AM Reporting Lab: [facility] [address] Performing Lab: [facility] [address] URINE COLOR YELLOW SPECIFIC GRAVITY >1.050 H [...] 2024 04:49 PM Reporting Lab: [facility] [address] Performing Lab: [facility] [address] WBC 17.5 H 4.0-11.0 RBC 4.88 4.60-6.20 [...] 2024 04:49 PM Reporting Lab: [facility] [address] Performing Lab: [facility] [address] PHOSPHORUS 2.6 mg/dL 2.3-4.3 Jul 08, 2024 09:54 AM [facility] BASIC METABOLIC PANEL+MG Specimen Type: PLASMA Comment: Specimen received in Lab at: 0952 Ordering Provider: JUANCARLOS ECHOLS S Report Released Date/Time: Jul 07, 2024 04:49 PM Reporting Lab: [facility] [address] Performing Lab: [facility] [address] CREATININE 0.9 mg/dL 0.7-1.2 UREA NITROGEN 26 [...] 2024 12:26 PM Reporting Lab: [facility] [address] Performing Lab: [facility] [address] C DIFF TOX B GENE PCR NEGATIVE Negative Jul 07, 2024 07:41 AM [facility] PHOSPHORUS Specimen Type: PLASMA No comment entered. Ordering Provider: JEVON ZAZUETA Report Released Date/Time: Jul 06, 2024 03:44 PM Reporting Lab: [facility] [address] Performing Lab: [facility] [address] PHOSPHORUS 3.1 mg/dL 2.3-4.3 Jul 07, 2024 07:41 AM [facility] BASIC METABOLIC PANEL+MG Specimen Type: PLASMA No comment entered. Ordering Provider: JEVON ZAZUETA Report Released Date/Time: Jul 06, 2024 03:44 PM Reporting Lab: [facility] [address] Performing Lab: [facility] [address] CREATININE 0.9 mg/dL 0.7-1.2 UREA NITROGEN 20 [...] 2024 03:44 PM Reporting Lab: [facility] [address] Performing Lab: [facility] [address] WBC 21.2 H 4.0-11.0 RBC 5.09 4.60-6.20 [...] 2024 01:22 PM Reporting Lab: [facility] [address] Performing Lab: [facility] [address] WBC 18.0 H 4.0-11.0 RBC 4.83 4.60-6.20 [...] 2024 01:22 PM Reporting Lab: [facility] [address] Performing Lab: [facility] [address] PHOSPHORUS 3.6 mg/dL 2.3-4.3 Jul 06, 2024 07:21 AM [facility] BASIC METABOLIC PANEL+MG Specimen Type: PLASMA No comment entered. Ordering Provider: JEVON ZAZUETA Report Released Date/Time: Jul 05, 2024 01:22 PM Reporting Lab: [facility] [address] Performing Lab: [facility] [address] CREATININE 0.7 mg/dL 0.7-1.2 UREA NITROGEN 12 [...] 2024 09:39 AM Reporting Lab: [facility] [address] Performing Lab: [facility] [address] MAGNESIUM 2.0 mg/dL 1.6-2.6 Jul 05, 2024 07:17 AM [facility] PHOSPHORUS Specimen Type: PLASMA No comment entered. Ordering Provider: JUANCARLOS ECHOLS S Report Released Date/Time: Jul 04, 2024 09:39 AM Reporting Lab: [facility] [address] Performing Lab: [facility] [address] PHOSPHORUS 2.0 mg/dL L 2.3-4.3 Jul 05, 2024 07:17 AM [facility] BASIC METABOLIC PANEL+MG Specimen Type: PLASMA No comment entered. Ordering Provider: JUANCARLOS ECHOLS S Report Released Date/Time: Jul 04, 2024 09:39 AM Reporting Lab: [facility] [address] Performing Lab: [facility] [address] CREATININE 0.7 mg/dL 0.7-1.2 UREA NITROGEN 12 [...] 2024 09:39 AM Reporting Lab: [facility] [address] Performing Lab: [facility] [address] WBC 18.3 H 4.0-11.0 RBC 4.49 L [...] 2024 06:31 PM Reporting Lab: [facility] [address] Performing Lab: [facility] [address] PHOSPHORUS 2.8 mg/dL 2.3-4.3 Jul 04, 2024 07:17 AM [facility] BASIC METABOLIC PANEL+MG Specimen Type: PLASMA No comment entered. Ordering Provider: GABINO CAMERON Report Released Date/Time: Jul 03, 2024 06:31 PM Reporting Lab: [facility] [address] Performing Lab: [facility] [address] CREATININE 0.7 mg/dL 0.7-1.2 UREA NITROGEN 16 mg/dL 8-26 GLUCOSE 129 mg/dL H 70-100 SODIUM 137 mmol/L 136-145 POTASSIUM 3.7 mmol/L 3.5-5.1 CHLORIDE 107 mmol/L 98-107 CO2 22 mmol/L 22-29 CALCIUM 9.0 mg/dL 8.4-10.2 MAGNESIUM 1.9 mg/dL 1.6-2.6 ANION GAP 8 mmol/L 5-15 .CREAT EGFR(CKD-EPI) >90 >60 Jul 04, 2024 07:16 AM [facility] CBC Specimen Type: BLOOD No comment entered. Ordering Provider: GABINO CAMERON Report Released Date/Time: Jul 03, 2024 06:31 PM Reporting Lab: [facility] [address] Performing Lab: [facility] [address] WBC 20.6 H 4.0-11.0 RBC 4.63 4.60-6.20 [...] 2024 06:31 PM Reporting Lab: [facility] [address] Performing Lab: [facility] [address] WBC 20.6 H 4.0-11.0 RBC 4.63 4.60-6.20 [...] 2024 06:31 PM Reporting Lab: [facility] [address] Performing Lab: [facility] [address] BNP 292 pg/mL H <99 Jul 03, 2024 10:32 PM [facility] FINGERSTICK GLUCOSE Specimen Type: BLOOD Comment: Save Result Nurse Notified Ordering Provider: KATELYNN PERSON Report Released Date/Time: Jul 03, 2024 10:50 PM Reporting Lab: [facility] [address] Performing Lab: [facility] [address] FINGERSTICK GLUCOSE 126 mg/dL H 70-100 Jul 03, 2024 05:33 PM [facility] FINGERSTICK GLUCOSE Specimen Type: BLOOD Comment: Save Result Nurse Notified Ordering Provider: KATELYNN PERSON Report Released Date/Time: Jul 03, 2024 05:46 PM Reporting Lab: [facility] [address] Performing Lab: [facility] [address] FINGERSTICK GLUCOSE 141 mg/dL H 70-100 Jul 03, 2024 02:31 PM [facility] POC ABG/ELECTROLYTES Specimen Type: ARTERIAL BLOOD Comment: FIO2 = 97% Patient Temp: 36.0 C Sample Type = ARTERIAL Ordering Provider: MAZIN ARREDONDO Report Released Date/Time: Jul 03, 2024 01:48 PM Reporting Lab: [facility] [address] Performing Lab: [facility] [address] POC PH 7.387 7.35-7.45 POC PCO2 34.4 [...] 2024 01:48 PM Reporting Lab: [facility] [address] Performing Lab: [facility] [address] POC PH 7.280 L 7.35-7.45 POC PCO2 [...] 2024 04:01 PM Reporting Lab: [facility] [address] Performing Lab: [facility] [address] URINE COLOR YELLOW SPECIFIC GRAVITY 1.031 1.003-1.03 [...] 2024 03:59 PM Reporting Lab: [facility] [address] Performing Lab: [facility] [address] WBC 15.8 H 4.0-11.0 RBC 5.11 4.60-6.20 [...] 2024 06:07 PM Reporting Lab: [facility] [address] Performing Lab: [facility] [address] CREATININE 0.8 mg/dL 0.7-1.2 UREA NITROGEN 13 [...] 2024 06:07 PM Reporting Lab: [facility] [address] Performing Lab: [facility] [address] WBC 15.5 H 4.0-11.0 RBC 4.93 4.60-6.20 [...] 2024 05:51 PM Reporting Lab: [facility] [address] Performing Lab: [facility] [address] CREATININE 0.7 mg/dL 0.7-1.2 UREA NITROGEN 16 [...] 2024 05:51 PM Reporting Lab: [facility] [address] Performing Lab: [facility] [address] WBC 14.9 H 4.0-11.0 RBC 5.09 4.60-6.20 [...] 2024 05:51 PM Reporting Lab: [facility] [address] Performing Lab: [facility] [address] WBC 16.9 H 4.0-11.0 RBC 5.28 4.60-6.20 [...] 2024 05:51 PM Reporting Lab: [facility] [address] Performing Lab: [facility] [address] CREATININE 0.7 mg/dL 0.7-1.2 UREA NITROGEN 17 [...] 2024 05:45 PM Reporting Lab: [facility] [address] Performing Lab: [facility] [address] URINE COLOR YELLOW SPECIFIC GRAVITY 1.041 H [...] 2024 06:07 PM Reporting Lab: [facility] [address] Performing Lab: [facility] [address] POC CREATININE 1.1 mg/dL 0.6-1.3 Jun 21, 2024 05:30 PM [facility] POC ABG/LACTATE Specimen Type: VENOUS BLOOD No comment entered. Ordering Provider: DELIA MARTINEZ Report Released Date/Time: Jun 21, 2024 06:07 PM Reporting Lab: [facility] [address] Performing Lab: [facility] [address] POC PH 7.470 H 7.31-7.41 POC PCO2 [...] 2024 05:30 PM Reporting Lab: [facility] [address] Performing Lab: [facility] [address] .INR 1.2 H 0.8-1.1 .PT 13.9 s H 9.4-12.5 Jun 21, 2024 05:24 PM [facility] LIPASE Specimen Type: PLASMA No comment entered. Ordering Provider: DELIA MARTINEZ Report Released Date/Time: Jun 21, 2024 05:30 PM Reporting Lab: [facility] [address] Performing Lab: [facility] [address] LIPASE 32 U/L <60 Jun 21, 2024 05:24 PM [facility] EXTRA GOLD GEL TUBE Specimen Type: SERUM No comment entered. Ordering Provider: DELIA MARTINEZ Report Released Date/Time: Jun 21, 2024 05:41 PM Reporting Lab: [facility] [address] Performing Lab: [facility] [address] EXTRA GOLD GEL TUBE RECEIVED Jun 21, 2024 05:24 PM [facility] COMPREHENSIVE METABOLIC PANEL+MG Specimen Type: PLASMA No comment entered. Ordering Provider: DELIA MARTINEZ Report Released Date/Time: Jun 21, 2024 05:30 PM Reporting Lab: [facility] [address] Performing Lab: [facility] [address] CREATININE 0.9 mg/dL 0.7-1.2 UREA NITROGEN 29 [...] 2024 05:30 PM Reporting Lab: [facility] [address] Performing Lab: [facility] [address] WBC 21.3 H 4.0-11.0 RBC 5.48 4.60-6.20 [...] 2024 09:02 AM Reporting Lab: [facility] [address] Performing Lab: [facility] [address] .INR 1.0 0.8-1.1 .PT 11.8 s 9.4-12.5 [...] 2024 09:02 AM Reporting Lab: [facility] [address] Performing Lab: [facility] [address] HEMOGLOBIN A1C 4.9 4.0-6.0 Jun 08, 2024 10:59 AM [facility] CBC Specimen Type: BLOOD No comment entered. Ordering Provider: MARYBETH POWELL Report Released Date/Time: May 28, 2024 09:02 AM Reporting Lab: [facility] [address] Performing Lab: [facility] [address] WBC 16.1 H 4.0-11.0 RBC 5.02 4.60-6.20 [...] 2024 09:02 AM Reporting Lab: [facility] [address] Performing Lab: [facility] [address] CREATININE 0.9 mg/dL 0.7-1.2 UREA NITROGEN 15 [...] VIEWS PA A ND LAT: MEGFLACA YAMIL [id number] -1950 M Exm Date: JUL 08, 2024@10:09 Req Phys: KATELYNN PERSON Pat Loc: 2KG/07-08-2024@11:49 Img Loc: MAIN X-RAY Service: [place] [address] (Case 24 COMPLETE) CHEST 2 VIEWS PA AND LAT (RAD Detailed) CPT:16156 Reason for Study: Uptrending WBC, POD 5 Clinical History: [place] IS NOT under investigation for COVID-19 or is COVID-19 negative POD 5, work up for uptrending wbc Responsible provider name and phone number to notify for critical findings if other than user placing the order and pager listed below: User placing orders pager: Katelynn Person LAST CREATININE 0.9 (07/07/24) Report Status: Verified Date Reported: JUL 08, 2024 Date Verified: JUL 08, 2024 Clinical Informatics Specialist E-Sig: Report: CHEST 2 VIEWS PA [...] cardiopulmonary disease. READING PHYSICIAN: Sarbjit Vaughn M.D. -[id number] 07/08/2024 12:46 EST [facility] National Teleradiology Program [phone] (For Medical Practitioner Use Only) Attention Patients / Veterans: If you have questions or concerns about these test results, please contact your ordering provider or primary care team. Primary Interpreting Staff: RADIOLOGY,OUTSIDE SERVICE, Staff Physician / RADIOLOGY,OUTSIDE SERVICE [facility] Jul 08, 2024 10:[address] (AP) ABDOMEN/PE LVIS W CONTRAST: MEGFLACA YAMIL [id number] -1950 M Ex Date: JUL 08, 2024@10:00 Req Phys: KATELYNN PERSON [facility] Loc: 2KG/07-08-2024@12:07 Img Loc: CT IMAGING Service: [place] [address] (Case 22 COMPLETE) CT (AP) ABDOMEN/PELVIS W CONTRAST(CT Detailed) CPT:53353 Contrast Media : Non-ionic Iodinated Reason for [...] PLASMA .CREAT EGFR(CKD-E >90 Ref: >=60 Allergies: ([facility]ynn only) TERAZOSIN (Mar 13, 2015) Report Status: Verified Date Reported: JUL 08, 2024 Date Verified: JUL 08, 2024 Clinical Informatics Specialist E-Sig: Report: CT (AP) ABDOMEN/PELVIS W [...] as noted above READING PHYSICIAN: Celestino Blanc -[id number] 07/08/2024 13:04 [facility]iology [facility] [phone] (For Medical Practitioner Use Only) Attention Patients / Veterans: If you have questions or concerns about these test results, please contact your ordering provider or primary care team. Primary Interpreting Staff: RADIOLOGY,OUTSIDE SERVICE, Staff Physician / RADIOLOGY,OUTSIDE SERVICE [facility] Jun 22, 2024 11:49 AM ABSCESS DRAIN PLAC EMENT PERITONEAL (P): FLACA WEAVER [id number] -1950 M Exm Date: JUN 22, 2024@11:49 Req Phys: ANGELA HOLDEN Pat Loc: [facility]06-22-2024@17:14 Img Loc: INTERVENTIONAL RADIOLOGY Service: [place] [address] (Case [id number] COMPLETE) IR PERITONEAL/RETROPERITONEAL PER(ANI Detailed) CPT:13328 Reason for Study: diverticulitis with abscess (Case 3570 COMPLETE) IR MOD SEDATION 10-22 MIN (ANI Detailed) CPT:56623 Clinical History: [place] IS NOT under investigation for COVID-19 or is COVID-19 negative 73 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 please place abscess drain. Contact number for responsible provider who can be reached for any questions or notifications of critical findings: [phone] n/a LAST CREATININE 0.9 (06/21/24) Report Status: Verified Date Reported: JUN 22, 2024 Date Verified: JUN 22, 2024 Clinical Informatics Specialist E-Sig:/ES/LISA PENDLETON MD Report: PROCEDURES: Placement [...] Using real-time CT fluoroscopy, a 5 Bruneian Ember Entertainmentesis catheter was advanced into the collection in the left pelvis. A wire was coiled in the collection. The tract into the collection was dilated to accommodate the 12 Bruneian locking pigtail drainage catheter. There was return [...] Primary Interpreting Staff: LISA PENDLETON MD, RADIOLOGIST (Clinical Informatics Specialist) /JRT LISA PENDLETON [facility] Jun 22, 2024 11:[address] NEEDLE PLACEMEN T (P): FLACA WEAVER [id number] -1950 M Exm Date: JUN 22, 2024@11:48 Req Phys: ANGELA HOLDEN Loc: [facility]06-22-2024@17:14 Im Loc: CT IMAGING Service: [place] [address] (Case [id number] COMPLETE) CT SCAN FOR NEEDLE PLACEMENT (CT Detailed) CPT:60562 Reason for Study: l pelvic abscess drain Clinical History: Report Status: Verified Date Reported: JUN 22, 2024 Date Verified: JUN 22, 2024 Clinical Informatics Specialist E-Sig:/ES/LISA PENDLETON MD Report: PROCEDURES: Placement [...] Using real-time CT fluoroscopy, a 5 Bruneian [employer]esis catheter was advanced into the collection in the left pelvis. A wire was coiled in the collection. The tract into the collection was dilated to accommodate the 12 Bruneian locking pigtail drainage catheter. There was return [...] Primary Interpreting Staff: LISA PENDLETON MD, RADIOLOGIST (Clinical Informatics Specialist) /JRT LISA PENDLETON [facility] Jun 21, 2024 06:[address] (AP) ABDOMEN/PE LVIS (P): FLACA WEAVER YAMIL [id number] -1950 M Exm Date: JUN 21, 2024@18:09 Req Phys: DELIA MARTINEZ Loc: [facility] EMERGENCY DEPT WALK-IN (Re Img Loc: CT IMAGING Service: [place] [address] (Case [id number] COMPLETE) CT (AP) ABDOMEN/PELVIS W CONTRAST(CT Detailed) CPT:54401 Contrast Media : Non-ionic Iodinated Reason for [...] PLASMA .CREAT EGFR(CKD-E >90 Ref: >=60 Allergies: ([facility]ynn only) TERAZOSIN (Mar 13, 2015) Defer to [...] 21, 2024 Date Verified: JUN 21, 2024 Clinical Informatics Specialist E-Sig:/ALEXI/CARLOS A CUNNINGHAM DO Report: EXAMINATION: [...] Interpreting Staff: CARLOS A CUNNINGHAM DO, RADIOLOGIST (Clinical Informatics Specialist) /CARLOS A ROWELL [facility] Pathology Reports: +/- 30 [...] $APHDR Reporting Lab: [facility] [CLIA# [id number]] [facility] [place] [address] - - - - - - - [...] - - - PATHOLOGY REPORT Accession No. [id number] - - - - - - - [...] - PATHOLOGY REPORT Accession No. [id number] - - - - - - - [...] Second circumferential surgical margin, en face; E-F: Loan Inspector diverticula; G: Loan Inspector section of mesentery; H: Random manufacturers service representative section of additional adipose tissue [...] tissue ring, bisected transversely. [facility]. [place] [place]: Microscopic examination performed. DIAGNOSIS: 1. Colon, sigmoid, sigmoidectomy-- - Diverticulosis with perforation and focal abscess formation 2. Colon, anastomotic rings, excision-- - Viable colonic mucosa without diagnostic abnormality /es/ EDUARDO PALOMARES MD STAFF PATHOLOGIST Signed Jul 06, 2024@10:40 Performing Laboratory: Surgical Pathology Report Performed By: [facility] [CLIA# [id number]] [place] [address] $FTR - - - - - - [...] - - FLACA WEAVER STANDARD FORM 515 ID:[id number] SEX:M :1950 AGE: 73 LOC:50098 ADM:Jun DX:DIVERTICULITIS PCP: Jatinder Cabrera /alexi/ EDUARDO PALOMARES MD STAFF PATHOLOGIST Signed: 07/06/2024 10:40 EDUARDO PALOMARES [facility] Jun 22, 2024 01:15 PM LR MICROBIOLOGY RE PORT: Reporting Lab: [facility] [CLIA# [id number]] [place] [address] Accession [UID]: [id number] [[id number]] Received: Jun 22, 2024@13:38 Collection sample: FLUID Collection date: Jun 22, 2024 13:15 Provider: ANGELA HOLDEN Comment on specimen: LLQ ABSCESS, RECEIVED IN ANAEROBIC TRANSPORT VIAL Test(s) ordered: GRAM STAIN.................... completed: Jun 22, 2024 15:03 CULTURE & SUSCEPTIBILITY...... completed: Jun 25, 2024 * BACTERIOLOGY FINAL REPORT => Jun 25, 2024 10:56 TECH CODE: [id number] GRAM STAIN: DIRECT SMEAR of specimen before [...] Report Performed By: [facility] [CLIA# [id number]] [place] [address] [facility] Jun 22, 2024 01:15 PM LR MICROBIOLOGY RE PORT: Reporting Lab: [facility] [CLIA# [id number]] [place] [address] Accession [UID]: [id number] [[id number]] Received: Jun 22, 2024@13:38 Collection sample: FLUID Collection date: Jun 22, 2024 13:15 Provider: ANGELA HOLDEN Comment on specimen: LLQ ABSCESS, RECEIVED IN ANAEROBIC TRANSPORT VIAL Test(s) ordered: ANAEROBIC CULTURE............. completed: Jun 28, 2024 * BACTERIOLOGY FINAL REPORT => Jun 28, 2024 10:08 TECH CODE: [id number] CULTURE RESULTS: HEAVY GROWTH MIXED ANAEROBES Comment: [...] Report Performed By: [facility] [CLIA# [id number]] [place] [address] [facility] Jun 21, 2024 06:12 PM LR MICROBIOLOGY RE PORT: Reporting Lab: [facility] [CLIA# [id number]] [address] Accession [UID]: [id number] [[id number]] Received: Jun 21, 2024@18:12 Collection sample: BLOOD [...] Report Performed By: [facility] [CLIA# [id number]] [place] [address] [facility] Jun 21, 2024 06:11 PM LR MICROBIOLOGY RE PORT: Reporting Lab: [facility] [IA# [id number]] [address] Accession [UID]: [id number] [[id number]] Received: Jun 21, 2024@18:11 Collection sample: BLOOD [...] Report Performed By: [facility] [CLIA# [id number]] [place] [address] [facility] Jun 08, 2024 11:00 AM LR MICROBIOLOGY RE PORT: Reporting Lab: [facility] [IA# [id number]] [address] Accession [UID]: [id number] [[id number]] Received: Jun 08, 2024@11:00 Collection sample: URINE Collection date: Jun 08, 2024 11:00 Provider: MARYBETH POWELL Comment on specimen: urine Test(s) ordered: CULTURE & SUSCEPTIBILITY...... completed: Jun 09, 2024 * BACTERIOLOGY FINAL REPORT => Jun 09, 2024 19:12 TECH CODE: [id number] CULTURE RESULTS: ESCHERICHIA COLI - Quantity: >100,000 [...] Report Performed By: [facility] [CLIA# [id number]] [place] [address] [facility] Encounter Notes: All associated encounter notes This section contains the clinical notes associated to the Encounter. Date/Time Encounter Note(s) Provider Source Jul 02, 2024 06:45 AM ADDENDUM: LOCAL TITLE: Addendum STANDARD TITLE: ADDENDUM DATE OF NOTE: JUL 02, 2024@06:45:55 ENTRY DATE: JUL 02, 2024@06:45:55 AUTHOR: MARYBETH POWELL EXP COSIGNER: URGENCY: STATUS: COMPLETED Please call patient for Dr. Arredondo - he did not show up for his cardiology consult that was recommnded by anesthesia preop. Please confirm patient is still amenable to having surgery with Dr. Arredondo tomorrow morning. /es/ MARYBETH POWELL MD STAFF SURGEON, COLON/RECTAL Signed: 07/02/2024 06:47 Receipt Acknowledged By: 07/02/2024 09:21 /es/ EDUARDO QUEEN RN REGISTERED NURSE 07/02/2024 08:39 /es/ LILIAM POWELL DNP, AGNP-C ADULT [place] NURSE PRACTITIONER 07/03/2024 05:22 /es/ MATHEW VILLARREAL MDA ANESTHESIOLOGIST --- Original Document --- 06/30/24 CCC: CLINICAL TRIAGE: Patient Demographics Patient Name: FLACA WEAVER Patient Primary [address]: [address] [place] [address] Patient Primary Phone: [phone] Patient : 1950 Patient Age: 73 Caller/Recipient Relation to Patient: Self Emergency Contact: NIMO PIÑA Triage Summary Conducted triage/discussed symptoms Utilized the Triage Tool: No Chief Complaint: Questions r/t upcoming surgery Patient Disposition Patient/Caregiver agrees to plan of care: Yes Patient WHERE: Selfcare Nursing Plan and Disposition Other course(s) of action Generated msg to PACT/Provider Nurse Summary Nurse Summary: [place] called saying has colon surgery on 07/03/24 @ 0600, an asking questions r/t diet, when to stop eating or drinking & when to take bowel prep. During conversation, found written instruction verbalized understanding of directions of when to stop eating solid food, drinking clear fluids, times to take neomycin medication, but unable to locate any information r/t time to drink below bowel prep. [place] agreeable to speak with the pharmacy. denies any new or worsening symptoms for triage at this time. Denies any additional needs or questions. 's call transferred to [place] pharmacy. thank you. Rx #[id number] - COLON ELECTROLYTE LAVAGE PWD FOR PENDING SALE TO [facility] Clinical Contact Center Codes Clinic/Location: V23 MSP PHONE [facility] RN IMPORTANT: This note was created by [facility] Clinical Contact Center staff. Please do not alert the staff member by adding them as a signer for future communications. Alerts are not monitored by this user. /alexi/ ANDRE ANGLIN RN [place] [facility] NURSE Signed: 06/30/2024 09:30 Receipt Acknowledged By: 07/02/2024 14:50 /es/ Jatinder Cabrera MD Physician 07/02/2024 11:12 /es/ SAMMY Desouza, employee development specialist Nurse for GUERITA AGUILA 07/02/2024 ADDENDUM STATUS: COMPLETED called and spoke to . He will start the bowel prep at 1700 and drink the solution until gone. He has the medication that he will also take at 1300, 1400, and 2300 today also. /es/ EDUARDO QUEEN RN REGISTERED NURSE Signed: 07/02/2024 09:22 MARYBETH POWELL [facility] Jun 30, 2024 09:30 AM RN PROGRESS NOTE: LOCAL TITLE: CCC: CLINICAL TRIAGE STANDARD TITLE: RN PROGRESS NOTE DATE OF NOTE: JUN 30, 2024@09:30:05 ENTRY DATE: JUN 30, 2024@09:30:06 AUTHOR: ANDRE ANGLIN EXP COSIGNER: URGENCY: STATUS: COMPLETED CCC: CLINICAL TRIAGE Has ADDENDA Patient Demographics Patient Name: FLACA WEAVER Patient Primary [address]: [address] [place] [id number] Patient Primary Phone: [phone] Patient : [id number] Patient Age: 73 Caller/Recipient Relation to Patient: Self Emergency Contact: NIMO PIÑA Triage Summary Conducted triage/discussed symptoms Utilized the Triage Tool: No Chief Complaint: Questions r/t upcoming surgery Patient Disposition Patient/Caregiver agrees to plan of care: Yes Patient WHERE: Selfcare Nursing Plan and Disposition Other course(s) of action Generated msg to PACT/Provider Nurse Summary Nurse Summary: called saying has colon surgery on 07/03/24 @ 0600, an asking questions r/t diet, when to stop eating or drinking & when to take bowel prep. During conversation, Rossford found written instruction verbalized understanding of directions of when to stop eating solid food, drinking clear fluids, times to take neomycin medication, but unable to locate any information r/t time to drink below bowel prep. agreeable to speak with the pharmacy. Rossford denies any new or worsening symptoms for triage at this time. Denies any additional needs or questions. [place]'s call transferred to [place] pharmacy. thank you. Rx #[id number] - COLON ELECTROLYTE LAVAGE PWD FOR PENDING SALE TO [facility] Clinical Contact Center Codes Clinic/Location: [facility] PHONE CCC RN IMPORTANT: This note was created by [facility] Clinical Contact Center staff. Please do not alert the staff member by adding them as a signer for future communications. Alerts are not monitored by this user. /es/ ANDRE ANGLIN RN [facility] NURSE Signed: 06/30/2024 09:30 Receipt Acknowledged By: 07/02/2024 14:50 /es/ Jatinder Cabrera MD Physician 07/02/2024 11:12 /es/ SAMMY Desouza, employee development specialist Nurse for GUERITA AGUILA 07/02/2024 ADDENDUM STATUS: COMPLETED Please call patient for Dr. Arredondo - he did not show up for his cardiology consult that was recommnded by anesthesia preop. Please confirm patient is still amenable to having surgery with Dr. Arredondo tomorrow morning. /es/ MARYBETH POWELL MD STAFF SURGEON, COLON/RECTAL Signed: 07/02/2024 06:47 Receipt Acknowledged By: 07/02/2024 09:21 /es/ EDUARDO QUEEN, ROSALIND REGISTERED NURSE 07/02/2024 08:39 /es/ LILIAM POWELL DNP, AGNP-C ADULT [place] NURSE PRACTITIONER * AWAITING SIGNATURE * MATHEW VILLARREAL 07/02/2024 ADDENDUM STATUS: COMPLETED called and spoke to . He will start the bowel prep at 1700 and drink the solution until gone. He has the medication that he will also take at 1300, 1400, and 2300 today also. /es/ EDUARDO QUEEN, ROSALIND REGISTERED NURSE Signed: 07/02/2024 09:22 ANDRE ANGLIN [facility]
--- OUTSIDE RECORDS SUMMARY | 2024-07-16 07:38 | XMS_ITS | Encounter Summary ---
Author Name [facility] [facility] [place] Address [address] [place] [address] Care Team Providers Care Net Mvc Developer Name Role Phone PREMA BENITEZ Primary Care [...] PART A Sep 29, 2016 PART A [phone] JUDY WEAVER PATIENT Selected Encounter This section includes the information on record at [place] for the Encounter. Date/Time Encounter Type Encounter Description Reason Provider Source Jul 03, 2024 05:59 AM CYSTOSCOPY AND TREATMENT HOSPITALIZATION ICD-10-CM E86.0 Dehydration MAZIN POON IHE Encounter Template Text not used by [place] Assessments - Encounter Diagnoses This section includes the primary and secondary diagnoses documented for the Encounter. Date/Time Primary/Secondary Diagnosis Diagnosis Name Provider Source Jul 10, 2024 11:15 AM Diagnosis for Length of Stay Dvtrcli of lg int w perforation and abscess w/o bleeding [facility] Jul 10, 2024 11:15 AM SECONDARY Athscl heart disease of [place] coronary artery w/o ang pctrs [facility] Jul 10, 2024 11:15 AM SECONDARY Atrioventricular block, second degree [facility] Jul 10, 2024 11:15 AM SECONDARY Bradycardia, unspecified [facility] Jul 10, 2024 11:15 AM SECONDARY Chronic diastolic (congestive) heart failure [facility] Jul 10, 2024 11:15 AM SECONDARY Chronic kidney disease, unspecified [facility] Jul 10, 2024 11:15 AM SECONDARY Dehydration [facility] Jul 10, 2024 11:15 AM SECONDARY Elevated white blood cell count, unspecified [facility] Jul 10, 2024 11:15 AM SECONDARY 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 [facility] Jul 10, 2024 11:15 AM SECONDARY Hyperlipidemia, unspecified [facility] Jul 10, 2024 11:15 AM SECONDARY Hypokalemia [facility] Jul 10, 2024 11:15 AM SECONDARY Ileus, unspecified [facility] Jul 10, 2024 11:15 AM SECONDARY Laparoscopic surgical procedure converted to open procedure [facility] Jul 10, 2024 11:15 AM SECONDARY Obstructive sleep apnea (adult) (pediatric) [facility] Jul 10, 2024 11:15 AM SECONDARY Other disorders of intestinal carbohydrate absorption [facility] Jul 10, 2024 11:15 AM SECONDARY Presence of coronary angioplasty implant and graft [facility] Plan of Treatment: Future Appointments (+ 6 months) and Future Tests (+/- 45 days) The Plan of Treatment section includes future care activities for the patient from all [facility]. This section includes future appointments and future orders which are active, pending or scheduled. Future Appointments This section includes appointments that were scheduled to occur 6 months from the date of the Encounter, up to a maximum of 20 appointments. The data comes from all [facility]. Appointment Date/Time Appointment Type Appointme nt [...] Chemi stry Order URINALYSIS URINE WC ONCE [facility] Jun 12, 2024 12:00 AM Laboratory - Chemi stry Order BNP PLASMA SP [facility] Jun 21, 2024 05:45 PM Laboratory - Blood Bank Order TYPE & SCREEN - LAB BLOOD [facility] Jul 03, 2024 12:00 AM Laboratory - Blood Bank Order TYPE & SCREEN - LAB BLOOD [facility] Jul 16, 2024 12:00 AM Laboratory - Chemi stry Order CBC BLOOD SP ONCE [facility] Jul 17, 2024 12:00 AM Laboratory - Chemi stry Order BASIC METABOLIC PANEL+MG PLASMA SP ONCE [facility] Surgical Procedures: All associated to the encounter This section includes all Surgical Procedures and Surgical Procedure Notes associated to the Encounter. Surgical Procedures This section includes all Surgical Procedures associated to the Encounter. Surgical Procedure Date/Time Procedure Procedure Type Procedure Qualifiers Provider Source Jul 03, 2024 08:33 AM Cystoscopy, Bilateral Ureteral Stent Placement CYSTOSCOPY AND TREATMENT Other Procedure CPT Code(s): GR-SERVICE BY [place] RESIDENT, LT-LEFT SIDE CHARITO SUAREZ [facility] Surgical Notes This section includes all Surgical Notes associated to the Procedure. Date/Time Jul 03, 2024 08:33 AM OPERATIVE REPORT: LOCAL TITLE: OPERATION REPORT STANDARD TITLE: OPERATIVE REPORT DATE OF NOTE: JUL 03, 2024@08:33 ENTRY DATE: JUL 03, 2024@14:11:04 SURGEON: CHRISTINE FRIAS ATTENDING: HOWIE GRIDER URGENCY: STATUS: COMPLETED SUBJECT: Case #: [id number] PREOPERATIVE DIAGNOSIS: Diverticulitis. POSTOPERATIVE DIAGNOSIS: Same. PROCEDURES PERFORMED: 1. Cystourethroscopy. 2. Bilateral placement of 5-Fr open-ended catheters. STAFF SURGEON: Howie Grider MD RESIDENT: Christine Frias MD ANESTHESIA: General. ESTIMATED BLOOD LOSS: None. COMPLICATIONS: None. BRIEF OPERATIVE INDICATIONS: Flaca Weaver is a 73yoM undergoing laparoscopic, possible open, sigmoid colectomy for sigmoid diverticulitis. They have requested placement of bilateral ureteral stents for better ureteral identification during their dissection. DESCRIPTION OF PROCEDURE: After full informed voluntary consent was obtained, the patient was transported to the operating room, placed supine on the table. After adequate anesthesia was induced, the patient was placed in the lithotomy position and prepped and draped in the usual sterile fashion. A timeout was taken to confirm correct patient, procedure and laterality. The case was started by inserting a 22-Yemeni rigid cystoscope sheath and 30-degree angle lens. The urethra was unremarkable. The prostate was mildly enlarged, with a high bladder neck. Once in the urinary bladder, media was clear and the bladder was grossly normal. The right ureteral orifice was cannulated with a 5-Fr open-ended ureteral catheter with the aid of a guidewire. The catheter was advanced over the wire up to the renal pelvis without resistance. We repeated the same process on the contralateral side. The scope was removed. A urethral tracey catheter was placed with 10 cc inflated into the balloon. This required placement over a wire, likely because of the high bladder neck and the two open-ended catheters in place. The case was turned over to the primary surgical service. They will notify us if there is any concern about the ureters. /alexi/ CHRISTINE FRIAS MD RESIDENT Signed: 07/03/2024 14:20 /alexi/ HOWIE GRIDER MD STAFF SURGEON Cosigned: 07/05/2024 08:09 CHRISTINE FRIAS Jul 03, 2024 08:33 AM SURGERY NURSING OPERATIVE NOTE: LOCAL TITLE: NURSE INTRAOPERATIVE REPORT STANDARD TITLE: SURGERY NURSING OPERATIVE NOTE DATE OF NOTE: JUL 03, 2024@08:33 ENTRY DATE: JUL 03, 2024@13:32:36 AUTHOR: NIMO KILGORE EXP COSIGNER: URGENCY: STATUS: COMPLETED SUBJECT: Case #: [id number] Operating Room: OR5 Surgical Priority: ELECTIVE Patient in Hold: NOT ENTERED Patient in OR: JUL 03, 2024 08:33 Operation Begin: JUL 03, 2024 09:18 Operation End: JUL 03, 2024 09:32 Patient Out OR: JUL 03, 2024 13:32 Major Operations Performed: Primary: Cystoscopy, Bilateral Ureteral Stent Placement Robotic Assistance (Y/N): NO Wound Classification: CLEAN/CONTAMINATED Operation Disposition: JUNG Discharged Via: STRETCHER Primary Surgeon: CHARITO SUAREZ School Bus Driver/Teacher Assistant: CHRISTINE FRIAS Attending Surgeon: CHARITO SUAREZ Second Assist: N/A OR Support Personnel: Scrubbed Circulating Fani SOLANO () NIMO KILGORE () KENJI FOWLER () Preop Mood: ANXIOUS Preop Consc: ALERT-ORIENTED Preop Skin Integ: INTACT Preop [place]: N/A --- Time Out Checklist --- Confirm Correct Patient Identity: YES Confirm Procedure To Be Performed: YES Confirm Site of the Procedure, Including Laterality: YES Confirm Valid Consent: YES, PAPER Confirm Patient Position: YES Confirm Procedure Site has been Marked Appropriately and that the Site of the Jessica is Visible After Prep and Draping: YES Pertinent Medical Images Have Been Confirmed: N/A Correct Medical Implant(s) is Available: YES Availability of Special Equipment: YES Appropriate Antibiotic Prophylaxis: YES Appropriate Deep Vein Thrombosis Prophylaxis: YES Blood Availability: YES Checklist Comment: NO COMMENTS ENTERED Time-Out Document Completed By: NIMO KILGORE Time-Out Completed: JUL 03, 2024@09:18 Preop Surgical Site Hair Removal by: N/A Surgical Site Hair Removal Method: NO HAIR REMOVED Hair Removal Comments: NO COMMENTS ENTERED Surgery Position(s): Lithotomy Placed: N/A Electrocautery Unit: [id number] ESU Coagulation Range: N/A ESU Cutting Range: N/A Electroground Position(s): LEFT ANT THIGH Anesthesia Technique(s): GENERAL Tubes and Drains: ureteral stents x2 Irrigation Solution(s): NORMAL SALINE Time Used: JUL 03, 2024 07:15 Amount: per MD Provider: CHARITO SUAREZ Possible Item Retention: * NOT ENTERED * Sponge Final Count Correct: NOT APPLICABLE Sharps Final Count Correct: NOT APPLICABLE Instrument Final Count Correct: NOT APPLICABLE Wound Sweep: YES Wound Sweep Comment: Wound sweep performed by surgeon prior to procedure end. Opsite viewed through scope camera by surgeon. Intra-Operative X-Ray: NO Intra-Operative X-Ray Comment: Case deemed virtually impossible to retain surgical items/instruments Dressing: NA Packing: NONE Blood Loss: 0 ml Urine Output: Postoperative Mood: RELAXED Postoperative Consciousness: RESTING Postoperative Skin Integrity: SAME PREOP Sequential Compression Device: YES Immediate Use Steam Sterilization Episodes: Contamination: 0 SPS Processing/OR Management Issues: 0 Emergency Case: 0 No Better Option: 0 Loaner or Short Notice Instrument: 0 Decontamination of Instruments Contaminated During the Case: 0 Nursing Care Comments: See CPRS nursing note /alexi/ Nimo Kilgore RN Staff Nurse, OR Signed: 07/03/2024 13:43 NIMO KILGORE Surgical Procedure Date/Time Procedure Procedure Type Procedure Qualifiers Provider Source Jul 03, 2024 08:33 AM laproscopic converted to open sigmoid colectomy, splenic flexure mobilization, diverting loop ileostomy, flexable sigmoidoscopy L COLECTOMY/COL OPROCTOSTOMY GR-SERVICE BY [place] RESIDENT Alex POON [facility] Surgical Notes This section includes all Surgical Notes associated to the Procedure. Date/Time Jul 03, 2024 08:33 AM OPERATIVE REPORT: LOCAL TITLE: OPERATION REPORT STANDARD TITLE: OPERATIVE REPORT DATE OF NOTE: JUL 03, 2024@08:33 ENTRY DATE: JUL 03, 2024@13:32:35 SURGEON: CHAPITO HENAO ATTENDING: WENCESLAO POON URGENCY: STATUS: COMPLETED SUBJECT: Case #: [id number] Attending: Yovanny Poon MD Fellow: Chapito Henao MD Preoperative Diagnosis: complicated diverticulitis - perforation with abscess, no bleeding Postoperative Diagnosis: complicated diverticulitis - perforation with purluent peritonitis Procedure: Laparoscopic converted to open splenic flexure mobilizations, sigmoidectomy with colorectal anstamosis and diveriting loop ileostomy. Specimen: Sigmoid. EBL: 50 mL. Findings: - Severely inflamed sigmoid colon adhered to abdominal wall and pelvic side wall. - Walled off pockets of pus including a cavity within the small bowel mesentery. Indications: Mariano Weaver is a 73M with complex diverticulitis who presents for surgical resection. Description: Mariano was identified in the preop area and the risks, benefits and alternatives to surgery were discussed. Consent was obtained and he was taken to the OR. A time out was performed and antibiotics and heparin were given, SCDs applied. General anesthesia was induced and the patient was intubated. He was positioned in high lithotomy. Urology placed ureteral stents (please see their note for furter detail). Once they were done the abdomen was prepped and draped in the standard sterile fashion. We began by accessing the abdomen with a Jorge technique superior to the umbilicus. We insufflated the abdomen without issue. On inspection, the sigmoid was inflammed and adhered to the pelvic side wall and anterior abdominal wall. We placed an additional 3 x 5 mm port and began our splenic flexure mobilization. We entered lesser sac, came around the splenic flexure and white line of Toldt. Once we were close to the inflammed area, we made the decision to open as the tissue was hard, friable and the planes were impossible to tell. A midline incision was made and the sigmoid colon was bluntly dissected free from the anterior abdominal wall. There was pus everywhere. An irais retractor was placed and the Bookwalter was set up. We started by bluntly dissecting the sigmoid from the pelvic side wall. There was a notable loop of small bowel adhered to the colon - the mesentery of the small bowel had walled off an abscess. The small bowel was bluntly dissected free and packed in the upper abdomen. We chose our proximal transection point and transected the proximal colon. We then continued to dissect the sigmoid free from the surrounding structures, ensuring the ureter was protected. We then chose our distal transection spot on the rectum at a soft spot and transected this location with a contour stapler. The specimen was passed off the feild and hemostasis was obtained. The abdomen was throuoghly irrigated. The proximal staple line was removed and the anvil was sewn into place with a purse string. Dr. Poon went below and passed sizers through the anus to the rectal stump - they went easily. The EEA stapler was inserted and the spike was deployed at the top of the rectal stump. The anvil from the proximal bowel was inserted to the spike and the EEA was fired. We had two very healthy anastamotic donuts and a negative leak test. Again, the abdomen was irrigated and hemostasis was obtained. The small bowel was run from the LOT to the TI and found to be healthy. Again, there was some bleeding in the jejunal mesentery 2/2 inflamation as it had walled off an abscess in the pelvis - the bowel however looked healthy and intact. Roughly 30cm from the TI we brought up a loop of ileum through the abdominal wall for our diverting ostomy. A drain was placed in the pelvis and the abdomen was closed - fascia with suture and skin with jeannine. An island dressing was placed and the drain was stitched in place. We then matured our diveriting loop ileostomy in a brooked fashion. A debriefing was performed and counts were correct. The patient was extubated and taken to PACU in stable condition. /alexi/ WENCESLAO POON MD STAFF SURGEON, COLON/RECTAL Signed: 07/06/2024 14:13 for CHAPITO Henao MD. Colorectal Fellow /alexi/ WENCESLAO POON MD STAFF SURGEON, COLON/RECTAL Cosigned: 07/06/2024 14:13 WENCESLAO POON Jul 03, 2024 08:33 AM SURGERY NURSING OPERATIVE NOTE: LOCAL TITLE: NURSE INTRAOPERATIVE REPORT STANDARD TITLE: SURGERY NURSING OPERATIVE NOTE DATE OF NOTE: JUL 03, 2024@08:33 ENTRY DATE: JUL 03, 2024@13:32:35 AUTHOR: NIMO KILGORE EXP COSIGNER: URGENCY: STATUS: COMPLETED SUBJECT: Case #: [id number] Operating Room: OR5 Surgical Priority: ELECTIVE Patient in Hold: NOT ENTERED Patient in OR: JUL 03, 2024 08:33 Operation Begin: JUL 03, 2024 10:02 Operation End: JUL 03, 2024 13:12 Patient Out OR: JUL 03, 2024 13:32 Major Operations Performed: Primary: laproscopic converted to open sigmoid colectomy, splenic flexure mobilization, diverting loop ileostomy, flexable sigmoidoscopy Robotic Assistance (Y/N): NO Wound Classification: DIRTY/INFECTED Operation Disposition: JUNG Discharged Via: STRETCHER Primary Surgeon: WENCESLAO POON School Bus Driver/Teacher Assistant: CHAPITO HENAO Attending Surgeon: WENCESLAO POON Second Assist: LEI LAW Other Scrubbed Assistants: RENEE RICHARDSON MOLLY OR Support Personnel: Scrubbed Circulating Fani SOLANO () NIMO KILGORE () KENJI FOWLER () Ronnie SPEARS () MERY SANDOVAL () DAVID NUR () Preop Mood: ANXIOUS Preop Consc: INTUBATED Preop Skin Integ: INTACT Preop [place]: N/A --- Time Out Checklist --- Confirm Correct Patient Identity: YES Confirm Procedure To Be Performed: YES Confirm Site of the Procedure, Including Laterality: YES Confirm Valid Consent: YES, i-MED Confirm Patient Position: YES Confirm Procedure Site has been Marked Appropriately and that the Site of the Jessica is Visible After Prep and Draping: YES Pertinent Medical Images Have Been Confirmed: N/A Correct Medical Implant(s) is Available: YES Availability of Special Equipment: YES Appropriate Antibiotic Prophylaxis: YES Appropriate Deep Vein Thrombosis Prophylaxis: YES Blood Availability: YES Checklist Comment: NO COMMENTS ENTERED Time-Out Document Completed By: NIMO KILGORE Time-Out Completed: JUL 03, 2024@10:02 Skin Prep By: NIMO KILGORE Skin Prep Agent: CHLORAPREP Skin Prep By (2): N/A 2nd Skin Prep Agent: BETADINE Preop Surgical Site Hair Removal by: WENCESLAO POON Surgical Site Hair Removal Method: CLIPPER Hair Removal Comments: NO COMMENTS ENTERED Surgery Position(s): Lithotomy Placed: N/A Electrocautery Unit: [id number] ESU Coagulation Range: 0-30 ESU Cutting Range: 0-30 Electroground Position(s): LEFT ANT THIGH Material Sent to Laboratory for Analysis: Specimens: 1:Sigmoid Colon/PERM/LLR/Dr. Poon 2:Anastomotic Rings/PERM/MMF/Dr. Poon Cultures: N/A Anesthesia Technique(s): GENERAL Tubes and Drains: JUAN closed suction x 1, colostomy bag Irrigation Solution(s): NORMAL SALINE Time Used: JUL 03, 2024 09:30 Amount: per MD Provider: WENCESLAO POON Possible Item Retention: * NOT ENTERED * Sponge Final Count Correct: YES Sharps Final Count Correct: YES Instrument Final Count Correct: YES Wound Sweep: YES Wound Sweep Comment: performed prior to wound closure by surgeons per [place] policy Intra-Operative X-Ray: NO Intra-Operative X-Ray Comment: not indicated per [place] policy Counter: NIMO KILGORE Counts Verified By: LAURA SOLANO Dressing: silverlon Packing: NONE Blood Loss: 50 ml Urine Output: Postoperative Mood: RELAXED Postoperative Consciousness: RESTING Postoperative Skin Integrity: FRESH INCISION Sequential Compression Device: YES Immediate Use Steam Sterilization Episodes: Contamination: 0 SPS Processing/OR Management Issues: 0 Emergency Case: 0 No Better Option: 0 Loaner or Short Notice Instrument: 0 Decontamination of Instruments Contaminated During the Case: 0 Nursing Care Comments: See CPRS nursing note /alexi/ Nimo Kilgore gerontological nurse practitioner Nurse, OR Signed: 07/03/2024 13:43 NIMO KILGORE Lab Results: +/- 30 days of the [...] Range Comment Jul 10, 2024 07:16 AM [facility] PHOSPHORUS Specimen Type: PLASMA No comment entered. Ordering Provider: JUANCARLOS MAYEN Report Released Date/Time: Jul 09, 2024 12:23 PM Reporting Lab: [facility] [phone] Performing Lab: [facility] [phone] PHOSPHORUS 3.0 mg/dL 2.3-4.3 Jul 10, 2024 07:16 AM [facility] BASIC METABOLIC PANEL+MG Specimen Type: PLASMA No comment entered. Ordering Provider: JUANCARLOS MAYEN S Report Released Date/Time: Jul 09, 2024 12:23 PM Reporting Lab: [facility] [phone] Performing Lab: [facility] [phone] CREATININE 0.7 mg/dL 0.7-1.2 UREA NITROGEN 27 mg/dL H 8-26 GLUCOSE 104 mg/dL H 70-100 SODIUM 133 mmol/L L 136-145 POTASSIUM 4.3 mmol/L 3.5-5.1 CHLORIDE 102 mmol/L 98-107 CO2 19 mmol/L L 22-29 CALCIUM 10.1 mg/dL 8.4-10.2 MAGNESIUM 1.9 mg/dL 1.6-2.6 ANION GAP 12 mmol/L 5-15 .CREAT EGFR(CKD-EPI) >90 >60 Jul 10, 2024 07:15 AM [facility] CBC Specimen Type: BLOOD No comment entered. Ordering Provider: JUANCARLOS MAYEN S Report Released Date/Time: Jul 09, 2024 12:23 PM Reporting Lab: [facility] [phone] Performing Lab: [facility] [phone] WBC 18.8 H 4.0-11.0 RBC 5.08 4.60-6.20 HGB 15.9 g/dL 13.5-17.9 HCT 46.8 41.0-54.0 MCV 92.1 fL 80.0-100.0 MCH 31.3 pg 27.0-33.0 MCHC 34.0 g/dL 32.0-37.5 PLT 479 H 150-400 MPV 10.2 fL 9.1-13.0 RDW 13.7 11.5-14.5 Jul 09, 2024 07:08 AM [facility] CBC Specimen Type: BLOOD No comment entered. Ordering Provider: QUYNH WEISS Report Released Date/Time: Jul 08, 2024 06:18 PM Reporting Lab: [facility] [phone] Performing Lab: [facility] [phone] WBC 15.3 H 4.0-11.0 RBC 4.91 4.60-6.20 HGB 15.1 g/dL 13.5-17.9 HCT 45.7 41.0-54.0 MCV 93.1 fL 80.0-100.0 MCH 30.8 pg 27.0-33.0 MCHC 33.0 g/dL 32.0-37.5 PLT 443 H 150-400 MPV 10.0 fL 9.1-13.0 RDW 13.5 11.5-14.5 Jul 08, 2024 10:50 AM [facility] URINALYSIS Specimen Type: URINE No comment entered. Ordering Provider: KATELYNN PERSON Report Released Date/Time: Jul 08, 2024 08:41 AM Reporting Lab: [facility] [phone] Performing Lab: [facility] [phone] URINE COLOR YELLOW SPECIFIC GRAVITY >1.050 H [...] NEGATIVE NEGATIVE Jul 08, 2024 09:54 AM [facility] CBC Specimen Type: BLOOD Comment: Specimen received in Lab at: [id number] Ordering Provider: JUANCARLOS MAYEN Report Released Date/Time: Jul 07, 2024 04:49 PM Reporting Lab: [facility] [phone] Performing Lab: [facility] [phone] WBC 17.5 H 4.0-11.0 RBC 4.88 4.60-6.20 HGB 14.9 g/dL 13.5-17.9 HCT 45.7 41.0-54.0 MCV 93.6 fL 80.0-100.0 MCH 30.5 pg 27.0-33.0 MCHC 32.6 g/dL 32.0-37.5 PLT 472 H 150-400 MPV 10.2 fL 9.1-13.0 RDW 13.7 11.5-14.5 Jul 08, 2024 09:54 AM [facility] PHOSPHORUS Specimen Type: PLASMA Comment: Specimen received in Lab at: [id number] Ordering Provider: JUANCARLOS MAYEN Report Released Date/Time: Jul 07, 2024 04:49 PM Reporting Lab: [facility] [phone] Performing Lab: [facility] [phone] PHOSPHORUS 2.6 mg/dL 2.3-4.3 Jul 08, 2024 09:54 AM [facility] BASIC METABOLIC PANEL+MG Specimen Type: PLASMA Comment: Specimen received in Lab at: 0952 Ordering Provider: JUANCARLOS MAYEN S Report Released Date/Time: Jul 07, 2024 04:49 PM Reporting Lab: [facility] [phone] Performing Lab: [facility] [phone] CREATININE 0.9 mg/dL 0.7-1.2 UREA NITROGEN 26 mg/dL 8-26 GLUCOSE 128 mg/dL H 70-100 SODIUM 134 mmol/L L 136-145 POTASSIUM 3.4 mmol/L L 3.5-5.1 CHLORIDE 100 mmol/L 98-107 CO2 24 mmol/L 22-29 CALCIUM 9.8 mg/dL 8.4-10.2 MAGNESIUM 1.8 mg/dL 1.6-2.6 ANION GAP 10 mmol/L 5-15 .CREAT EGFR(CKD-EPI) >90 >60 Jul 07, 2024 02:00 PM [facility] C DIFF PANEL Specimen Type: FECES No comment entered. Ordering Provider: JEVON ZAZUETA Report Released Date/Time: Jul 07, 2024 12:26 PM Reporting Lab: [facility] [phone] Performing Lab: [facility] [phone] C DIFF TOX B GENE PCR NEGATIVE Negative Jul 07, 2024 07:41 AM [facility] PHOSPHORUS Specimen Type: PLASMA No comment entered. Ordering Provider: JEVON ZAZUETA Report Released Date/Time: Jul 06, 2024 03:44 PM Reporting Lab: [facility] [phone] Performing Lab: [facility] [phone] PHOSPHORUS 3.1 mg/dL 2.3-4.3 Jul 07, 2024 07:41 AM [facility] BASIC METABOLIC PANEL+MG Specimen Type: PLASMA No comment entered. Ordering Provider: JEVON ZAZUETA Report Released Date/Time: Jul 06, 2024 03:44 PM Reporting Lab: [facility] [phone] Performing Lab: [facility] [phone] CREATININE 0.9 mg/dL 0.7-1.2 UREA NITROGEN 20 mg/dL 8-26 GLUCOSE 157 mg/dL H 70-100 SODIUM 136 mmol/L 136-145 POTASSIUM 3.7 mmol/L 3.5-5.1 CHLORIDE 102 mmol/L 98-107 CO2 21 mmol/L L 22-29 CALCIUM 9.8 mg/dL 8.4-10.2 MAGNESIUM 1.9 mg/dL 1.6-2.6 ANION GAP 13 mmol/L 5-15 .CREAT EGFR(CKD-EPI) >90 >60 Jul 07, 2024 07:40 AM [facility] CBC Specimen Type: BLOOD No comment entered. Ordering Provider: JEVON ZAZUETA Report Released Date/Time: Jul 06, 2024 03:44 PM Reporting Lab: [facility] [phone] Performing Lab: [facility] [phone] WBC 21.2 H 4.0-11.0 RBC 5.09 4.60-6.20 HGB 15.9 g/dL 13.5-17.9 HCT 48.3 41.0-54.0 MCV 94.9 fL 80.0-100.0 MCH 31.2 pg 27.0-33.0 MCHC 32.9 g/dL 32.0-37.5 PLT 500 H 150-400 MPV 10.3 fL 9.1-13.0 RDW 13.6 11.5-14.5 Jul 06, 2024 07:21 AM [facility] CBC Specimen Type: BLOOD No comment entered. Ordering Provider: JEVON ZAZUETA Report Released Date/Time: Jul 05, 2024 01:22 PM Reporting Lab: [facility] [phone] Performing Lab: [facility] [phone] WBC 18.0 H 4.0-11.0 RBC 4.83 4.60-6.20 HGB 14.6 g/dL 13.5-17.9 HCT 45.5 41.0-54.0 MCV 94.2 fL 80.0-100.0 MCH 30.2 pg 27.0-33.0 MCHC 32.1 g/dL 32.0-37.5 PLT 368 150-400 MPV 10.4 fL 9.1-13.0 RDW 13.6 11.5-14.5 Jul 06, 2024 07:21 AM [facility] PHOSPHORUS Specimen Type: PLASMA No comment entered. Ordering Provider: JEVON ZAZUETA Report Released Date/Time: Jul 05, 2024 01:22 PM Reporting Lab: [facility] [phone] Performing Lab: [facility] [phone] PHOSPHORUS 3.6 mg/dL 2.3-4.3 Jul 06, 2024 07:21 AM [facility] BASIC METABOLIC PANEL+MG Specimen Type: PLASMA No comment entered. Ordering Provider: JEVON ZAZUETA Report Released Date/Time: Jul 05, 2024 01:22 PM Reporting Lab: [facility] [phone] Performing Lab: [facility] [facility] [address] CREATININE 0.7 mg/dL 0.7-1.2 UREA NITROGEN 12 mg/dL 8-26 GLUCOSE 108 mg/dL H 70-100 SODIUM 138 mmol/L 136-145 POTASSIUM 3.4 mmol/L L 3.5-5.1 CHLORIDE 104 mmol/L 98-107 CO2 20 mmol/L L 22-29 CALCIUM 9.3 mg/dL 8.4-10.2 MAGNESIUM 1.9 mg/dL 1.6-2.6 ANION GAP 14 mmol/L 5-15 .CREAT EGFR(CKD-EPI) >90 >60 Jul 05, 2024 07:17 AM [facility] MAGNESIUM Specimen Type: PLASMA No comment entered. Ordering Provider: JUANCARLOS MAYEN Report Released Date/Time: Jul 04, 2024 09:39 AM Reporting Lab: [facility] [address] Performing Lab: [place] [address] MAGNESIUM 2.0 mg/dL 1.6-2.6 Jul 05, 2024 07:17 AM [facility] PHOSPHORUS Specimen Type: PLASMA No comment entered. Ordering Provider: JUANCARLOS MAYEN S Report Released Date/Time: Jul 04, 2024 09:39 AM Reporting Lab: [facility] [address] Performing Lab: [place] [phone] PHOSPHORUS 2.0 mg/dL L 2.3-4.3 Jul 05, 2024 07:17 AM [facility] BASIC METABOLIC PANEL+MG Specimen Type: PLASMA No comment entered. Ordering Provider: JUANCARLOS MAYEN S Report Released Date/Time: Jul 04, 2024 09:39 AM Reporting Lab: [facility] [phone] Performing Lab: [facility] [address] CREATININE 0.7 mg/dL 0.7-1.2 UREA NITROGEN 12 mg/dL 8-26 GLUCOSE 84 mg/dL 70-100 SODIUM 135 mmol/L L 136-145 POTASSIUM 3.8 mmol/L 3.5-5.1 CHLORIDE 104 mmol/L 98-107 CO2 24 mmol/L 22-29 CALCIUM 9.3 mg/dL 8.4-10.2 MAGNESIUM 2.0 mg/dL 1.6-2.6 ANION GAP 7 mmol/L 5-15 .CREAT EGFR(CKD-EPI) >90 >60 Jul 05, 2024 07:16 AM [facility] CBC Specimen Type: BLOOD No comment entered. Ordering Provider: JUANCARLOS MAYEN S Report Released Date/Time: Jul 04, 2024 09:39 AM Reporting Lab: [facility] [phone] Performing Lab: [facility] [address] WBC 18.3 H 4.0-11.0 RBC 4.49 L 4.60-6.20 HGB 14.1 g/dL 13.5-17.9 HCT 43.4 41.0-54.0 MCV 96.7 fL 80.0-100.0 MCH 31.4 pg 27.0-33.0 MCHC 32.5 g/dL 32.0-37.5 PLT 317 150-400 MPV 10.0 fL 9.1-13.0 RDW 13.9 11.5-14.5 Jul 04, 2024 07:17 AM [facility] BASIC METABOLIC PANEL+MG Specimen Type: PLASMA No comment entered. Ordering Provider: GABINO CAMERON Report Released Date/Time: Jul 03, 2024 06:31 PM Reporting Lab: [facility] [phone] Performing Lab: [facility] [phone] CREATININE 0.7 mg/dL 0.7-1.2 UREA NITROGEN 16 mg/dL 8-26 GLUCOSE 129 mg/dL H 70-100 SODIUM 137 mmol/L 136-145 POTASSIUM 3.7 mmol/L 3.5-5.1 CHLORIDE 107 mmol/L 98-107 CO2 22 mmol/L 22-29 CALCIUM 9.0 mg/dL 8.4-10.2 MAGNESIUM 1.9 mg/dL 1.6-2.6 ANION GAP 8 mmol/L 5-15 .CREAT EGFR(CKD-EPI) >90 >60 Jul 04, 2024 07:17 AM [facility] PHOSPHORUS Specimen Type: PLASMA No comment entered. Ordering Provider: GABINO CAMERON Report Released Date/Time: Jul 03, 2024 06:31 PM Reporting Lab: [facility] [phone] Performing Lab: [facility] [address] PHOSPHORUS 2.8 mg/dL 2.3-4.3 Jul 04, 2024 07:16 AM [facility] CBC Specimen Type: BLOOD No comment entered. Ordering Provider: GABINO CAMERON Report Released Date/Time: Jul 03, 2024 06:31 PM Reporting Lab: [facility] [phone] Performing Lab: [facility] [phone] WBC 20.6 H 4.0-11.0 RBC 4.63 4.60-6.20 HGB 14.2 g/dL 13.5-17.9 HCT 43.4 41.0-54.0 MCV 93.7 fL 80.0-100.0 MCH 30.7 pg 27.0-33.0 MCHC 32.7 g/dL 32.0-37.5 PLT 329 150-400 MPV 10.4 fL 9.1-13.0 RDW 13.8 11.5-14.5 Jul 04, 2024 07:16 AM [facility] CBC & DIFF Specimen Type: BLOOD Comment: Manual Differential Performed Ordering Provider: GABINO CAMERON Report Released Date/Time: Jul 03, 2024 06:31 PM Reporting Lab: [facility] [address] Performing Lab: [facility] [phone] WBC 20.6 H 4.0-11.0 RBC 4.63 4.60-6.20 [...] MORPHOLOGY PRESENT Jul 04, 2024 07:15 AM [facility] BNP Specimen Type: PLASMA No comment entered. Ordering Provider: GABINO CAMERON Report Released Date/Time: Jul 03, 2024 06:31 PM Reporting Lab: [facility] [phone] Performing Lab: [facility] [phone] BNP 292 pg/mL H <99 Jul 03, 2024 10:32 PM [facility] FINGERSTICK GLUCOSE Specimen Type: BLOOD Comment: Save Result Nurse Notified Ordering Provider: KATELYNN PERSON Report Released Date/Time: Jul 03, 2024 10:50 PM Reporting Lab: [facility] [phone] Performing Lab: [facility] [address] FINGERSTICK GLUCOSE 126 mg/dL H 70-100 Jul 03, 2024 05:33 PM [facility] FINGERSTICK GLUCOSE Specimen Type: BLOOD Comment: Save Result Nurse Notified Ordering Provider: KATELYNN PERSON Report Released Date/Time: Jul 03, 2024 05:46 PM Reporting Lab: [facility] [phone] Performing Lab: [facility] [address] FINGERSTICK GLUCOSE 141 mg/dL H 70-100 Jul 03, 2024 02:31 PM [facility] POC ABG/ELECTROLYTES Specimen Type: ARTERIAL BLOOD Comment: FIO2 = 97% Patient Temp: 36.0 C Sample Type = ARTERIAL Ordering Provider: MAZIN POON Report Released Date/Time: Jul 03, 2024 01:48 PM Reporting Lab: [facility] [phone] Performing Lab: [facility] [address] POC PH 7.387 7.35-7.45 POC PCO2 34.4 [...] H 80.0-105.0 Jul 03, 2024 01:05 PM [facility] POC ABG/ELECTROLYTES Specimen Type: ARTERIAL BLOOD Comment: FIO2 = 53% Patient Temp: 36.2 C Sample Type = ARTERIAL Ordering Provider: MAZIN POON Report Released Date/Time: Jul 03, 2024 01:48 PM Reporting Lab: [facility] [address] Performing Lab: [facility] [address] POC PH 7.280 L 7.35-7.45 POC PCO2 [...] mm[Hg] 80.0-105.0 Jul 03, 2024 06:15 AM [facility] URINALYSIS Specimen Type: URINE No comment entered. Ordering Provider: MARYBETH GRAVES Report Released Date/Time: Jun 12, 2024 04:01 PM Reporting Lab: [facility] [address] Performing Lab: [facility] [address] URINE COLOR YELLOW SPECIFIC GRAVITY 1.031 1.003-1.03 [...] 250 NEGATIVE Jul 03, 2024 06:13 AM [facility] CBC Specimen Type: BLOOD No comment entered. Ordering Provider: MARYBETH GRAVES Report Released Date/Time: Jun 12, 2024 03:59 PM Reporting Lab: [facility] [address] Performing Lab: [facility] [address] WBC 15.8 H 4.0-11.0 RBC 5.11 4.60-6.20 HGB 16.1 g/dL 13.5-17.9 HCT 49.1 41.0-54.0 MCV 96.1 fL 80.0-100.0 MCH 31.5 pg 27.0-33.0 MCHC 32.8 g/dL 32.0-37.5 PLT 357 150-400 MPV 9.8 fL 9.1-13.0 RDW 13.7 11.5-14.5 Jun 24, 2024 09:50 AM [facility] BASIC METABOLIC PANEL+MG Specimen Type: PLASMA Comment: Specimen received in Lab at: 0948 Ordering Provider: JEVON ZAZUETA Report Released Date/Time: Jun 23, 2024 06:07 PM Reporting Lab: [facility] [phone] Performing Lab: [facility] [address] CREATININE 0.8 mg/dL 0.7-1.2 UREA NITROGEN 13 mg/dL 8-26 GLUCOSE 135 mg/dL H 70-100 SODIUM 135 mmol/L L 136-145 POTASSIUM 3.6 mmol/L 3.5-5.1 CHLORIDE 103 mmol/L 98-107 CO2 24 mmol/L 22-29 CALCIUM 9.2 mg/dL 8.4-10.2 MAGNESIUM 1.9 mg/dL 1.6-2.6 ANION GAP 8 mmol/L 5-15 .CREAT EGFR(CKD-EPI) >90 >60 Jun 24, 2024 09:50 AM [facility] CBC Specimen Type: BLOOD Comment: Specimen received in Lab at: 0948 Ordering Provider: JEVON ZAZUETA Report Released Date/Time: Jun 23, 2024 06:07 PM Reporting Lab: [facility] [address] Performing Lab: [facility] [address] WBC 15.5 H 4.0-11.0 RBC 4.93 4.60-6.20 HGB 15.2 g/dL 13.5-17.9 HCT 46.5 41.0-54.0 MCV 94.3 fL 80.0-100.0 MCH 30.8 pg 27.0-33.0 MCHC 32.7 g/dL 32.0-37.5 PLT 223 150-400 MPV 11.4 fL 9.1-13.0 RDW 13.9 11.5-14.5 Jun 23, 2024 07:52 AM [facility] COMPREHENSIVE METABOLIC PANEL+MG Specimen Type: PLASMA No comment entered. Ordering Provider: JEVON ZAZUETA Report Released Date/Time: Jun 22, 2024 05:51 PM Reporting Lab: [facility] [address] Performing Lab: [facility] [address] CREATININE 0.7 mg/dL 0.7-1.2 UREA NITROGEN 16 [...] >90 >60 Jun 23, 2024 07:52 AM [facility] CBC & DIFF Specimen Type: BLOOD Comment: Automated Differential Performed Ordering Provider: JEVON ZAZUETA Report Released Date/Time: Jun 22, 2024 05:51 PM Reporting Lab: [facility] [address] Performing Lab: [facility] [address] WBC 14.9 H 4.0-11.0 RBC 5.09 4.60-6.20 [...] 0.1 0.0-0.1 Jun 22, 2024 06:10 PM [facility] COMPREHENSIVE METABOLIC PANEL+MG Specimen Type: PLASMA No comment entered. Ordering Provider: JEVON ZAZUETA Report Released Date/Time: Jun 22, 2024 05:51 PM Reporting Lab: [facility] [phone] Performing Lab: [facility] [address] CREATININE 0.7 mg/dL 0.7-1.2 UREA NITROGEN 17 [...] >90 >60 Jun 22, 2024 06:10 PM [facility] CBC Specimen Type: BLOOD No comment entered. Ordering Provider: JEVON ZAZUETA Report Released Date/Time: Jun 22, 2024 05:51 PM Reporting Lab: [facility] [address] Performing Lab: [facility] [address] WBC 16.9 H 4.0-11.0 RBC 5.28 4.60-6.20 HGB 16.9 g/dL 13.5-17.9 HCT 50.4 41.0-54.0 MCV 95.5 fL 80.0-100.0 MCH 32.0 pg 27.0-33.0 MCHC 33.5 g/dL 32.0-37.5 PLT 223 150-400 MPV 10.9 fL 9.1-13.0 RDW 14.0 11.5-14.5 Jun 21, 2024 06:48 PM [facility] URINALYSIS Specimen Type: URINE No comment entered. Ordering Provider: DELIA MARTINEZ Report Released Date/Time: Jun 21, 2024 05:45 PM Reporting Lab: [facility] [address] Performing Lab: [facility] [address] URINE COLOR YELLOW SPECIFIC GRAVITY 1.041 H [...] 500 NEGATIVE Jun 21, 2024 05:34 PM [facility] POC CREATININE Specimen Type: BLOOD No comment entered. Ordering Provider: DELIA MARTINEZ Report Released Date/Time: Jun 21, 2024 06:07 PM Reporting Lab: [facility] [address] Performing Lab: [facility] [address] POC CREATININE 1.1 mg/dL 0.6-1.3 Jun 21, 2024 05:30 PM [facility] POC ABG/LACTATE Specimen Type: VENOUS BLOOD No comment entered. Ordering Provider: DELIA MARTINEZ Report Released Date/Time: Jun 21, 2024 06:07 PM Reporting Lab: [facility] [address] Performing Lab: [facility] [address] POC PH 7.470 H 7.31-7.41 POC PCO2 31.2 mm[Hg] L 41.00-51 .0 0 POC PO2 46 mm[Hg] H 35.0-40.0 POC TCO2 24 mmol/L 24.0-29.0 POC HCO3 22.7 mmol/L L 23.0-28.0 POC BE ECT -1 mmol/L POC SO2 85 H 70-75 POC LACTATE 1.85 mmol/L 0.90-1.70 Jun 21, 2024 05:24 PM [facility] PROTHROMBIN TIME/INR Specimen Type: PLASMA No comment entered. Ordering Provider: DELIA MARTINEZ Report Released Date/Time: Jun 21, 2024 05:30 PM Reporting Lab: [facility] [address] Performing Lab: [facility] [address] .INR 1.2 H 0.8-1.1 .PT 13.9 s H 9.4-12.5 Jun 21, 2024 05:24 PM [facility] LIPASE Specimen Type: PLASMA No comment entered. Ordering Provider: DELIA MARTINEZ Report Released Date/Time: Jun 21, 2024 05:30 PM Reporting Lab: [facility] [phone] Performing Lab: [facility] [address] LIPASE 32 U/L <60 Jun 21, 2024 05:24 PM [facility] COMPREHENSIVE METABOLIC PANEL+MG Specimen Type: PLASMA No comment entered. Ordering Provider: DELIA MARTINEZ Report Released Date/Time: Jun 21, 2024 05:30 PM Reporting Lab: [facility] [address] Performing Lab: [facility] [address] CREATININE 0.9 mg/dL 0.7-1.2 UREA NITROGEN 29 [...] mg/dL <0.5 Jun 21, 2024 05:24 PM [facility] EXTRA GOLD GEL TUBE Specimen Type: SERUM No comment entered. Ordering Provider: DELIA MARTINEZ Report Released Date/Time: Jun 21, 2024 05:41 PM Reporting Lab: [facility] [address] Performing Lab: [facility] [address] EXTRA GOLD GEL TUBE RECEIVED Jun 21, 2024 05:24 PM [facility] CBC & DIFF Specimen Type: BLOOD Comment: Manual Differential Performed Ordering Provider: DELIA MARTINEZ Report Released Date/Time: Jun 21, 2024 05:30 PM Reporting Lab: [facility] [address] Performing Lab: [facility] [address] WBC 21.3 H 4.0-11.0 RBC 5.48 4.60-6.20 [...] MORPHOLOGY PRESENT Jun 08, 2024 10:59 AM [facility] CBC Specimen Type: BLOOD No comment entered. Ordering Provider: MARYBETH GRAVES Report Released Date/Time: May 28, 2024 09:02 AM Reporting Lab: [facility] [address] Performing Lab: [facility] [address] WBC 16.1 H 4.0-11.0 RBC 5.02 4.60-6.20 HGB 16.0 g/dL 13.5-17.9 HCT 47.1 41.0-54.0 MCV 93.8 fL 80.0-100.0 MCH 31.9 pg 27.0-33.0 MCHC 34.0 g/dL 32.0-37.5 PLT 228 150-400 MPV 10.3 fL 9.1-13.0 RDW 14.6 H 11.5-14.5 Jun 08, 2024 10:59 AM [facility] PROTHROMBIN TIME/INR Specimen Type: PLASMA No comment entered. Ordering Provider: MARYBETH GRAVES Report Released Date/Time: May 28, 2024 09:02 AM Reporting Lab: [facility] [address] Performing Lab: [facility] [address] .INR 1.0 0.8-1.1 .PT 11.8 s 9.4-12.5 Jun 08, 2024 10:59 AM [facility] HEMOGLOBIN A1C Specimen Type: BLOOD Comment: Values obtained from A1C measurements can vary. For typical A1C assays, a reported value of 7.0 could actually be between 6.7 and 7.3 if measured by a reference method. A reported value of 9.0 could actually be between 8.7 and 9.3. Ref: http://www. sp.org/CAPdat a.asp Ordering Provider: MARYBETH GRAVES Report Released Date/Time: May 28, 2024 09:02 AM Reporting Lab: [facility] [address] Performing Lab: [facility] [address] HEMOGLOBIN A1C 4.9 4.0-6.0 Jun 08, 2024 10:59 AM [facility] BASIC METABOLIC PANEL+MG Specimen Type: PLASMA No comment entered. Ordering Provider: MARYBETH GRAVES Report Released Date/Time: May 28, 2024 09:02 AM Reporting Lab: [facility] [address] Performing Lab: [facility] [address] CREATININE 0.9 mg/dL 0.7-1.2 UREA NITROGEN 15 [...] Height Weight Body Mass Index Source Jul 03, 2024 11:26 PM 3 [facility] Jul 03, 2024 10:33 PM 5 [facility] Jul 03, 2024 08:26 PM 3 [facility] Jul 03, 2024 07:58 PM 5 [facility] Jul 03, 2024 07:25 PM 3 [facility] Social History: Smoking Status (Most current) and Tobacco Use (All prior to encounter date) This section includes the most current, and the historical, smoking and tobacco- related health factors from the [facility] where the Encounter took place. Current Smoking Status This section includes the most current smoking, or tobacco-related health factor, from the [place] facility where the Encounter took place. Date/Time Current Smoking Status Comment Juan Manuel putnam May 15, 2024 08:30 AM VA-TOBACCO FORMER USER [facility] Tobacco [...] QUIT 15 YRS OR MORE [facility] May 06, 2023 11:30 AM VA-TOBACCO FORMER USER [facility] May 06, 2023 11:30 AM VA-TOBACCO QUIT [...] Mar 23, 2016 CLINICAL WARNING [facility] Radiology Reports: [...] VIEWS PA A ND LAT: FLACA WEAVER [id number] -1950 M Exm Date: JUL 08, 2024@10:09 Req Phys: KATELYNN PERSON [facility] Loc: [facility]/07-08-2024@11:49 Img Loc: MAIN X-RAY Service: [place] [address] (Case 24 COMPLETE) CHEST 2 VIEWS PA AND LAT (RAD Detailed) CPT:25495 Reason for Study: Uptrending WBC, POD 5 [...] 08, 2024 Date Verified: JUL 08, 2024 [employer]ger E-Sig: Report: CHEST 2 VIEWS PA AND [...] cardiopulmonary disease. READING PHYSICIAN: Jessica Vaughn M.D. -[phone] 07/08/2024 12:46 EST [facility] National Teleradiology [facility] [phone] (For Medical Practitioner Use Only) Attention Patients / Veterans: If you have questions or concerns about these test results, please contact your ordering provider or primary care team. Primary Interpreting Staff: RADIOLOGY,OUTSIDE SERVICE, Staff Physician / RADIOLOGY,OUTSIDE SERVICE [facility] Jul 08, 2024 10:[address] (AP) ABDOMEN/PE LVIS W CONTRAST: FLACA WEAVER [id number] -1950 M Exm Date: JUL 08, 2024@10:00 Req Phys: KATELYNN PERSON [facility] Loc: [facility]/07-08-2024@12:07 Img Loc: CT IMAGING Service: [place] [address] (Case 22 COMPLETE) CT (AP) ABDOMEN/PELVIS W CONTRAST(CT Detailed) CPT:52496 Contrast Media : Non-ionic Iodinated Reason for [...] PLASMA .CREAT EGFR(CKD-E >90 Ref: >=60 Allergies: ([place] only) TERAZOSIN (Mar 13, 2015) Report Status: Verified Date Reported: JUL 08, 2024 Date Verified: JUL 08, 2024 [employer] E-Sig: Report: CT (AP) ABDOMEN/PELVIS W CONTRAST [...] as noted above READING PHYSICIAN: Celestino Blanc -[phone] 07/08/2024 13:04 EST [facility] National Teleradiology [facility] [phone] (For Medical Practitioner Use Only) Attention Patients / Veterans: If you have questions or concerns about these test results, please contact your ordering provider or primary care team. Primary Interpreting Staff: RADIOLOGY,OUTSIDE SERVICE, Staff Physician / RADIOLOGY,OUTSIDE SERVICE [facility] Jun 22, 2024 11:49 AM ABSCESS DRAIN PLAC EMENT PERITONEAL (P): FLACA WEAVER [id number] -1950 M Exm Date: JUN 22, 2024@11:49 Req Phys: ANGELA HOLDEN Loc: [facility]/06-22-2024@17:14 Img Loc: INTERVENTIONAL RADIOLOGY Service: [place] [address] (Case [id number] COMPLETE) IR PERITONEAL/RETROPERITONEAL PER(ANI Detailed) CPT:71218 Reason for Study: diverticulitis with abscess (Case [id number] COMPLETE) IR MOD SEDATION 10-22 MIN (ANI Detailed) CPT:77978 Clinical History: [place] IS NOT under investigation for COVID-19 or is COVID-19 negative 73 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 please place abscess drain. Contact number for responsible provider who can be reached for any questions or notifications of critical findings: [phone] n/a LAST CREATININE 0.9 (06/21/24) Report Status: Verified Date Reported: JUN 22, 2024 Date Verified: JUN 22, 2024 [employer]ger E-Sig:/ES/LISA CRUZ MD Report: PROCEDURES: Placement of abscess drainage catheter with CT guidance CLINICAL HISTORY: Recurrent pericolonic abscess/colovesicular fistula. Abscess drain placement requested prior to planned surgery. COMPARISONS: 06/21/2024 CT examination ATTENDING RADIOLOGIST: Lisa Cruz M.D. Medications: The patient was placed on [...] anesthesia. Using real-time CT fluoroscopy, a 5 [employer] catheter was advanced into the collection in the left pelvis. A wire was coiled in the collection. The tract into the collection was dilated to accommodate the 12 Yemeni locking pigtail drainage catheter. There was return [...] resection on 07/03/2024. Primary Interpreting Staff: LISA CRUZ MD, RADIOLOGIST ([employer]ger) /JRT LISA CRUZ [facility] Jun 22, 2024 11:[address] NEEDLE PLACEMEN T (P): FLACA WEAVER [id number] -1950 M Exm Date: JUN 22, 2024@11:48 Req Phys: ANGELA HOLDEN Loc: [facility]/06-22-2024@17:14 Img Loc: CT IMAGING Service: [place] [address] (Case [id number] COMPLETE) CT SCAN FOR NEEDLE PLACEMENT (CT Detailed) CPT:02153 Reason for Study: l pelvic abscess drain Clinical History: Report Status: Verified Date Reported: JUN 22, 2024 Date Verified: JUN 22, 2024 [employer]ger E-Sig:/ES/LISA CRUZ MD Report: PROCEDURES: Placement of abscess drainage catheter with CT guidance CLINICAL HISTORY: Recurrent pericolonic abscess/colovesicular fistula. Abscess drain placement requested prior to planned surgery. COMPARISONS: 06/21/2024 CT examination ATTENDING RADIOLOGIST: Lisa Cruz M.D. Medications: The patient was placed on [...] anesthesia. Using real-time CT fluoroscopy, a 5 [place]i [employer] centesis catheter was advanced into the collection in the left pelvis. A wire was coiled in the collection. The tract into the collection was dilated to accommodate the 12 Yemeni locking pigtail drainage catheter. There was return [...] resection on 07/03/2024. Primary Interpreting Staff: LISA CRUZ MD, RADIOLOGIST ([employer] Chain Pegger) /JRT LISA CRUZ [facility] Jun 21, 2024 06:[address] (AP) ABDOMEN/PE LVIS (P): FLACA WEAVER [id number] -1950 M Exm Date: JUN 21, 2024@18:09 Req Phys: DELIA MARTINEZ Loc: [facility] EMERGENCY DEPT WALK-IN (Re Img Loc: CT IMAGING Service: [place] [address] (Case [id number] COMPLETE) CT (AP) ABDOMEN/PELVIS W CONTRAST(CT Detailed) CPT:91521 Contrast Media : Non-ionic Iodinated Reason for [...] PLASMA .CREAT EGFR(CKD-E >90 Ref: >=60 Allergies: ([place] only) TERAZOSIN (Mar 13, 2015) Defer to [...] 21, 2024 Date Verified: JUN 21, 2024 [employer]ger E-Sig:/ES/CARLOS A CUNNINGHAM DO Report: EXAMINATION: CT [...] Interpreting Staff: CARLOS A CUNNINGHAM DO, RADIOLOGIST ([employer] Chain Pegger) /CARLOS A ROWELL [facility] Pathology Reports: +/- 30 days [...] COSIGNER: URGENCY: STATUS: COMPLETED $APHDR Reporting Lab: [facility] [CLIA# [id number]] [place] [address] - - - - - - - [...] - PATHOLOGY REPORT Accession No. [id number] - - - - - - - - - - - - - - - - - - - - - - - - - - - - - - - - - - - - - - - - $TEXT Submitted by: WENCESLAO POON Date obtained: Jul 03, 2024 - - [...] - - POSTOPERATIVE DIAGNOSIS: Diverticulitis Surgeon/physician: WENCESLAO POON MD Attending Surgeon: Wenceslao Poon MD =-=-=-=-=-=-=-=-=-=-=-=-=-=- =-=-=-=-=-=-=-=-=-=-=-=-=-=- =-=-=-=-=-=-=-=-=-=-=-= - - - - - - - - - - - - - - - - - - - - - - - - - - - - - - - - - - - - - - - - PATHOLOGY REPORT Accession No. [id number] - - - - - - - [...] Second circumferential surgical margin, en face; E-F: Client Solutions Director diverticula; G: Client Solutions Director section of mesentery; H: Random chain sales representative section of additional adipose tissue [...] One colonic tissue ring, bisected transversely. SS. (D)[facility] MICROSCOPIC DESCRIPTION: Microscopic examination performed. DIAGNOSIS: 1. Colon, sigmoid, sigmoidectomy-- - Diverticulosis with perforation and focal abscess formation 2. Colon, anastomotic rings, excision-- - Viable colonic mucosa without diagnostic abnormality /alexi/ EDUARDO PALOMARES MD STAFF PATHOLOGIST Signed Jul 06, 2024@10:40 Performing Laboratory: Surgical Pathology Report Performed By: [facility] [CLIA# [id number]] [place] [address] $FTR - - - - - - [...] - - FLACA WEAVER STANDARD FORM 515 ID:[id number] SEX:M :1950 AGE: 73 LOC:80194 ADM:Jun DX:DIVERTICULITIS PCP: Prema Benitez /alexi/ EDUARDO PALOMARES MD STAFF PATHOLOGIST Signed: 07/06/2024 10:40 EDUARDO PALOMARES [facility] Jun 22, 2024 01:15 PM LR MICROBIOLOGY RE PORT: Reporting Lab: [facility] [CLIA# [id number]] [place] [address] Accession [UID]: [id number] [[id number]] Received: Jun 22, 2024@13:38 Collection sample: FLUID Collection date: Jun 22, 2024 13:15 Provider: ANGELA HOLDEN Comment on specimen: LLQ ABSCESS, RECEIVED IN ANAEROBIC TRANSPORT VIAL Test(s) ordered: GRAM STAIN.................... completed: Jun 22, 2024 15:03 CULTURE & SUSCEPTIBILITY...... completed: Jun 25, 2024 * BACTERIOLOGY FINAL REPORT => Jun 25, 2024 10:56 TECH CODE: [id number] GRAM STAIN: DIRECT SMEAR of specimen before [...] -=--=--=--=--=--=--=-- Performing Laboratory: Bacteriology Report Performed By: [facility] [CLIA# [id number]] [place] [address] [facility] Jun 22, 2024 01:15 PM LR MICROBIOLOGY RE PORT: Reporting Lab: [facility] [CLIA# [id number]] [place] [address] Accession [UID]: [id number] [[id number]] Received: Jun 22, 2024@13:38 Collection sample: FLUID Collection date: Jun 22, 2024 13:15 Provider: ANGELA HOLDEN Comment on specimen: LLQ ABSCESS, RECEIVED IN ANAEROBIC TRANSPORT VIAL Test(s) ordered: ANAEROBIC CULTURE............. completed: Jun 28, 2024 * BACTERIOLOGY FINAL REPORT => Jun 28, 2024 10:08 [facility] CODE: [id number] CULTURE RESULTS: HEAVY GROWTH MIXED ANAEROBES Comment: including the followin+ Bacteroides fragilis 4+ Bacteroides vulgatus 4+ Clostridium innocuum Beta-lactamase negative 4+ Bacteroides caccae 4+ Parvimonas micra 4+ Bacteroides uniformis 4+ Gemella morbillorum 4+ anaerobic small, Gram Positive Rods 4+ Bacteroides thetaiotaomicron Standard workup is now complete. Bacteriology Remark(s): THIS REPORT IS FINAL =--=--=--=--=--=--=--=--=--= --=--=--=--=--=--=--=--=--=- -=--=--=--=--=--=--=-- Performing Laboratory: Bacteriology Report Performed By: [facility] [CLIA# [id number]] [place] [address] [facility] Jun 21, 2024 06:12 PM LR MICROBIOLOGY RE PORT: Reporting Lab: [facility] [IA# [id number]] [place] [address] Accession [UID]: [id number] [[id number]] Received: Jun 21, 2024@18:12 Collection sample: BLOOD [...] -=--=--=--=--=--=--=-- Performing Laboratory: Bacteriology Report Performed By: [facility] [IA# [id number]] [place] [address] [facility] Jun 21, 2024 06:11 PM LR MICROBIOLOGY RE PORT: Reporting Lab: [facility] [IA# [id number]] [place] [address] Accession [UID]: [id number] [[id number]] Received: Jun 21, 2024@18:11 Collection sample: BLOOD [...] -=--=--=--=--=--=--=-- Performing Laboratory: Bacteriology Report Performed By: [facility] [CLIA# [id number]] [place] [address] [facility] Jun 08, 2024 11:00 AM LR MICROBIOLOGY RE PORT: Reporting Lab: [facility] [CLIA# [id number]] [place] [address] Accession [UID]: [id number] [[id number]] Received: Jun 08, 2024@11:00 Collection sample: URINE Collection date: Jun 08, 2024 11:00 Provider: MARYBETH GRAVES Comment on specimen: urine Test(s) ordered: CULTURE & SUSCEPTIBILITY...... completed: Jun 09, 2024 * BACTERIOLOGY FINAL REPORT => Jun 09, 2024 19:12 TECH CODE: [id number] CULTURE RESULTS: ESCHERICHIA COLI - Quantity: >100,000 [...] -=--=--=--=--=--=--=-- Performing Laboratory: Bacteriology Report Performed By: [facility] [CLIA# [id number]] [address] [place] [address] [facility] Encounter Notes: All associated encounter notes This section contains the clinical notes associated to the Encounter. Date/Time Encounter Note(s) Provider Source Jul 10, 2024 11:34 AM WOUND CARE NOTE: LOCAL TITLE: WOC NURSE F/U NOTE STANDARD TITLE: WOUND CARE NOTE DATE OF NOTE: JUL 10, 2024@11:34 ENTRY DATE: JUL 10, 2024@11:34:45 AUTHOR: MARTI LAYTON EXP COSIGNER: URGENCY: STATUS: COMPLETED Airplane Captain visited [place] to continue new ostomy teaching. [place] states We tried calling you, the bag has already been changed. Airplane Captain received no alerts/calls/pages regarding pouch change. declines further teaching. Airplane Captain reinforced that [place] check out the blue folder at bedside with new stoma information with educational handouts for reference. Airplane Captain also verifed with pharmacy that pouching system (barriers and pouches, and supplies) are available for pickup at pharmacy this morning so he has pouches for home. [place] denies homecare per chart review this morning. [facility] will plan to see at colon-rectal postop appt on 07/16 to address any pouching needs as a RTC. /alexi/ EARLENE PATHAK, RN, CWOCN Certified Wound, Ostomy, Continence Nurse Signed: 07/10/2024 11:44 MARTI LAYTON [facility] Jul 10, 2024 11:15 AM PASTORAL CARE NOTE: LOCAL TITLE: WET WHEELER-VISITATION NOTE STANDARD TITLE: PASTORAL CARE NOTE DATE OF NOTE: JUL 10, 2024@11:15 ENTRY DATE: JUL 10, 2024@11:16:11 AUTHOR: LEILANI HOLLIDAY [facility] COSIGNER: URGENCY: STATUS: COMPLETED WET WHEELER VISIT DECLINE NOTE SUBJECTIVE: Routine Glass Washer And Carrier Visit OBJECTIVE: Six Color Press Operator met with [place] at his bedside for a quick visit. ASSESSMENT/SPIRITUAL DISTRESS OR COPING: - stated that he did not want a visitor at this time. - stated that he is discharging today. - relayed, I am so happy to get out of here, the care here is shitty. INTERVENTION: - Six Color Press Operator complied with declining the visit. /es/ LEILANI HOLLIADY MDIV, [facility] [place] Staff Six Color Press Operator Signed: 07/10/2024 11:21 LEILANI HOLLIDAY [facility] Jul 10, 2024 11:15 AM DISCHARGE SUMMARY: LOCAL TITLE: Discharge Summary STANDARD TITLE: DISCHARGE SUMMARY DICT DATE: JUL 10, 2024@09:26 ENTRY DATE: JUL 10, 2024@09:26:33 DICTATED BY: RENEE RICHARDSON ATTENDING: WENCESLAO POON URGENCY: routine STATUS: COMPLETED Discharge Summary Has ADDENDA Discharge Summary DRAFT UNTIL SIGNED BY ATTENDING Admission Date: Jun Discharge Date: Jun Discharge Destination: home PRIMARY DIAGNOSIS: Diverticulitis s/p sigmoid colectomy SECONDARY DIAGNOSES: High ileostomy output Acute pain Leukocytosis Hypertension OPERATIVE/INVASIVE PROCEDURES: 07/03: Sigmoid colectomy with diverting loop colostomy with Dr. Poon CONSULTS: Med Comanagement PT/OT WOCN BRIEF SUMMARY OF H&P: 74 y/o M with h/o CAD, HLD, HTN, CKD, HFrEF, and diverticulitis complicated by colovesicular fistula and abscess formation requiring a drain in March 2024 s/p drain removal and subsequent abscess formation with IR drain placement on 06/22. Patient is now s/p laparoscopic converted to open sigmoid colectomy, splenic flexure mobilization, diverting loop ileostomy, flex sig with bilateral ureteral stent placement with [facility] Urology on 07/03/24. Post op course with high ileostomy output. Did not tolerate loperamide so switched to Lomotil 4x/day. Patient had increasing leukocytosis with negative workup with UA and CT scan. On 07/10 patient was adamant about being discharged. Discusses concerns about continued leukocytosis and high ileostomy output. Patient stated his understand about teams concerns but stated he didnt care and that he only lives a few minutes away. Educated patient about strict return precautions including but not limited to fevers, abdominal pain, high ostomy output, feeling unwell, etc. Patient again expressed his understanding. Will plan on seeing patient in 1 week for close follow-up with a CBC and wound check. Possible removal of jeannine at his follow-up appointment. EXAM AT THE TIME OF DISCHARGE: Temp: 97.9 F [36.6 C] (07/09/2024 23:47) Pulse: 59 (07/09/2024 23:47) BP: 151/73 (07/09/2024 23:47) Resp: 18 (07/09/2024 23:47) O2 sat: 98% (07/09/2024 23:47) Alert, oriented Non labored on room air Abdomen soft, non tender. Midline incision intact. Drain with serosanguineous. Removed this morning. Ostomy with gas and stool in appliance. DISCHARGE INFORMATION: Disposition on discharge, diet, physical activity, and follow-up care orders are included in the discharge orders. Patient instructed to take Metamucil at home 2 packets, 3 times daily. MEDICATION CHANGES: See the [facility] Med Instruction/Reconciliation note for a complete medication list. FOLLOW UP: Follow-up in Dr. Poon clinic in 1 week More than 30 minutes was spent on discharge management services and coordination of care for this . /alexi/ RENEE RICHARDSON General Surgery Resident Signed: 07/10/2024 10:13 /alexi/ WENCESLAO POON MD STAFF SURGEON, COLON/RECTAL Cosigned: 07/13/2024 14:26 07/10/2024 ADDENDUM STATUS: COMPLETED Patient seen prior to discharge and also discouraged discharge, considering persistent high ostomy output and leukocytosis. Discussed holding furosemide until can be seen by primary care in 1 week with repeat BMP considering high ileostomy output. Patient understands and will hold furosemide on discharge. Patient's HCTZ/lisinopril was also discontinued so that patient will not be on 2 diuretics when he restarts furosemide. He will continue lisinopril. /jerome POLANCO MD PHYSICIAN Signed: 07/10/2024 14:34 Receipt Acknowledged By: 07/10/2024 15:53 /jerome Benitez MD Physician RENEE RICHARDSON [facility] Jul 10, 2024 11:15 AM ADDENDUM: LOCAL TITLE: Addendum STANDARD TITLE: ADDENDUM DICT DATE: JUL 10, 2024@14:32 ENTRY DATE: JUL 10, 2024@14:32:51 DICTATED BY: KIN POLANCO ATTENDING: KIN POLANCO URGENCY: routine STATUS: COMPLETED Patient seen prior to discharge and also discouraged discharge, considering persistent high ostomy output and leukocytosis. Discussed holding furosemide until can be seen by primary care in 1 week with repeat BMP considering high ileostomy output. Patient understands and will hold furosemide on discharge. Patient's HCTZ/lisinopril was also discontinued so that patient will not be on 2 diuretics when he restarts furosemide. He will continue lisinopril. /jerome POLANCO MD PHYSICIAN Signed: 07/10/2024 14:34 Receipt Acknowledged By: 07/10/2024 15:53 /jerome Benitez MD Physician --- Original Document --- 07/10/24 Discharge Summary: Discharge Summary DRAFT UNTIL SIGNED BY ATTENDING Admission Date: Jun Discharge Date: Jun Discharge Destination: home PRIMARY DIAGNOSIS: Diverticulitis s/p sigmoid colectomy SECONDARY DIAGNOSES: High ileostomy output Acute pain Leukocytosis Hypertension OPERATIVE/INVASIVE PROCEDURES: 07/03: Sigmoid colectomy with diverting loop colostomy with Dr. Poon CONSULTS: Med Comanagement PT/OT WOCN BRIEF SUMMARY OF H&P: 74 y/o M with h/o CAD, HLD, HTN, CKD, HFrEF, and diverticulitis complicated by colovesicular fistula and abscess formation requiring a drain in March 2024 s/p drain removal and subsequent abscess formation with IR drain placement on 06/22. Patient is now s/p laparoscopic converted to open sigmoid colectomy, splenic flexure mobilization, diverting loop ileostomy, flex sig with bilateral ureteral stent placement with [facility] Urology on 07/03/24. Post op course with high ileostomy output. Did not tolerate loperamide so switched to Lomotil 4x/day. Patient had increasing leukocytosis with negative workup with UA and CT scan. On 07/10 patient was adamant about being discharged. Discusses concerns about continued leukocytosis and high ileostomy output. Patient stated his understand about teams concerns but stated he didnt care and that he only lives a few minutes away. Educated patient about strict return precautions including but not limited to fevers, abdominal pain, high ostomy output, feeling unwell, etc. Patient again expressed his understanding. Will plan on seeing patient in 1 week for close follow-up with a CBC and wound check. Possible removal of jeannine at his follow-up appointment. EXAM AT THE TIME OF DISCHARGE: Temp: 97.9 F [36.6 C] (07/09/2024 23:47) Pulse: 59 (07/09/2024 23:47) BP: 151/73 (07/09/2024 23:47) Resp: 18 (07/09/2024 23:47) O2 sat: 98% (07/09/2024 23:47) Alert, oriented Non labored on room air Abdomen soft, non tender. Midline incision intact. Drain with serosanguineous. Removed this morning. Ostomy with gas and stool in appliance. DISCHARGE INFORMATION: Disposition on discharge, diet, physical activity, and follow-up care orders are included in the discharge orders. Patient instructed to take Metamucil at home 2 packets, 3 times daily. MEDICATION CHANGES: See the [facility] Med Instruction/Reconciliation note for a complete medication list. FOLLOW UP: Follow-up in Dr. Poon clinic in 1 week More than 30 minutes was spent on discharge management services and coordination of care for this . /alexi/ RENEE RICHARDSON General Surgery Resident Signed: 07/10/2024 10:13 [place] [facility] Jul 10, 2024 10:40 AM NONVA NOTE: LOCAL TITLE: COMMUNITY CARE-CARE COORDINATION PLAN NOTE STANDARD TITLE: NONVA NOTE DATE OF NOTE: JUL 10, 2024@10:40 ENTRY DATE: JUL 10, 2024@10:40:47 AUTHOR: HARPREET DARLING COSIGNER: URGENCY: STATUS: COMPLETED In reference to Community Care Consult #[[id number]], dated [07/06/2024], consult cancelled d/t: Spoke with who states he does not need homecare at this time. States he has a friend who is a nurse who will be able to manage his dressings, bag changes and questions if he has any. He is also able to change his bag if needed. Will cancel consult for now and if is in need of assistance later consult can be resubmitted or reentered. /alexi/ HARPREET DARLING RN COMMUNITY CARE LAW FIRM ADMINISTRATOR Signed: 07/10/2024 10:41 Receipt Acknowledged By: 07/10/2024 15:53 /es/ Prema Benitez MD Physician 07/10/2024 11:02 /alexi/ GUERITA AGUILA RN REGISTERED NURSE YOUNG DARLING [facility] Jul 10, 2024 09:45 AM NURSING DISCHARGE NOTE: LOCAL TITLE: [facility] NURSING DISCHARGE SUMMARY STANDARD TITLE: NURSING DISCHARGE NOTE DATE OF NOTE: JUL 10, 2024@09:45 ENTRY DATE: JUL 10, 2024@09:45:15 AUTHOR: NAIMA TIRADO EXP COSIGNER: URGENCY: STATUS: COMPLETED Vet encouraged to stay per MD's recommendations, vet insists on his medical stability being sufficient for discharge. Nursing Discharge Summary Home Discharge date and time: Jun @ 1115 Accompanied by: Self Wheelchair Transportation: Own car Verify that the Contact Name and Phone Number are correct: FLACA WEAVER Condition: Alert Skin Condition: Intact Incision: Yes, describe: Dry Education/Teach Back Patient and/or Caregiver was given [...] readable or re-constructible to any degree. /alexi/ Naima Tirado RN registered nurse Signed: 07/10/2024 11:30 NAIMA TIRADO [facility] Jul 10, 2024 09:35 AM EDUCATION DISCHARGE NOTE: LOCAL TITLE: EDUCATION NURSING DISCHARGE INSTRUCTIONS STANDARD TITLE: EDUCATION DISCHARGE NOTE DATE OF NOTE: JUL 10, 2024@09:35 ENTRY DATE: JUL 10, 2024@09:35:44 AUTHOR: NAIMA TIRADO EXP COSIGNER: URGENCY: STATUS: COMPLETED IMPORTANT PHONE NUMBERS: Discharge Order : Discharge Date: Jul 10, 2024 Discharge To Home . Discharge Type: Hospital Discharge . DC Summary Dictated: YES Dictating Provider: RENEE RICHARDSON Attending Physician: WENCESLAO POON Discharge Diagnosis: Diverticulitis s/p sigmoid colectomy with diverting loop ileostomy Discharge Condition: Fair IF YOU HAVE A LIFE THREATENING EMERGENCY CALL 911 If you have questions about anything related to your inpatient care at the [facility] or your future care in the [facility], call the Call Center or After Hour numbers listed below. If you receive care at another [place] facility or with a community provider, you will need to call them for questions about your future care. -Call Center Tuesday-Tuesday, 7:30-4:30 at [phone] or Toll Free -After Hours- toll-free -Outpatient Pharmacy - -Verification of Appointments for the following month - Discharge Order : Restrictions/Instructions Lifting: No lifting greater than 15 pounds for 4 weeks Working: May return to work Bathing: May take a shower but no submerging wounds for 2 weeks Stairs: No Restriction. Driving: No driving if taking oxycodone Sexual Activity: No Restriction Dietary: No Restriction. NSAID or Aspirin: No Restriction. Wound Condition: Clean/Dry/Healing Wound Care: Jeannine to be removed in 1 week. 2 weeks from surgery Special Transport Needs: None Transport Oxygen: NO Discharge Order Schedule Follow up Appt in Clinic (name & timeframe):f/u in 1 week Other Follow Up Clinic Orders: Will need to follow-up in clinic in 1 week. With a CBC f/u and for a wound check. Possible removal of jeannine at that time. Written education reviewed and given on: Other diagnosis/instructions: DC instructions Patient and/or other caregiver has had an opportunity to participate in the development of the discharge plan. The patient had an opportunity to ask questions. While in the hospital you were treated for: Laproscopic converted to open sigmoid colectomy, splenic flexture mobilization, diverting loop ileostomy, flexable sigmoidoscopy Primary Care Team: Primary Care Team: JUANITO PACT IRIS *WH* Primary Care Provider: PREMA BENITEZ No Associate Provider Assigned. Attending Physician: WENCESLAO POON You are being discharged to: Home Phone number you can be contacted at for the next 2 weeks: Continuing care needs: If you receive care at [facility] you will need to call the Primary Care Call Center number at [phone]. If you receive care at another [place] facility or community provider, you will need to call them to arrange your follow up care. For surgical patients - If you don't receive a follow up clinic appointment within a week, please call the Call Center at [phone]. Future appointments: No data available A copy of these instructions has been [...] IZG:[place] IIS CONTRAINDICATED No data available REFUSED ====== Public Nurse Follow Up?: Yes, PHN Complete reason for request: outpatient nursing follow-up for ostomy Nursing: Screen patient within 24 hours prior to discharge for suiciderisk, using the [place]-Suicide Severity Rating Scale (C-SSRS). If theC-SSRS results in a positive screen, provide warm hand off to responsibleprovider to complete the Suicide Risk Evaluation-Comprehensive (CSRE)prior to discharge. COPD exacerbation or PNA+ dx COPD? No CHF this admit, h/o CHF, or low EF? No Stroke/CVA/TIA this admit or h/o? No *'S CRISIS LINE NUMBER IS (TALK)* Discharge from ICU, Acute Care, Acute Rehab, or CLC C-SSRS Screening [place] Suicide Severity Rating Scale (C-SSRS) screener 1.?Over [...] due to responses to other questions. /alexi/ Naima Tirado RN registered nurse Signed: 07/10/2024 09:41 NAIMA TIRADO [facility] Jul 10, 2024 12:12 AM NURSING INPATIENT NOTE: LOCAL TITLE: [facility] NURSING PROGRESS NOTE STANDARD TITLE: NURSING INPATIENT NOTE DATE OF NOTE: JUL 10, 2024@00:12 ENTRY DATE: JUL 10, 2024@00:12:10 AUTHOR: CEDRIC JONES EXP COSIGNER: URGENCY: STATUS: COMPLETED Nursing Shift Note Nursing care provided from [id number] Highlights from shift: Alert and oriented x 4. CMS+. DP/PT palpable, no edema noted. Lung sounds clear with diminsined bases, remain on room air with sats mid 90's. Abdomen soft, appropriately tender, bowel sounds present x 4 quadrants, RLQ ostomy with green stool output. Ostomy output somewhat loose; pt emptying ostomy independently, stoma beefy red/healthy. JUAN present to LLQ as well with scant serosanguinous output noted (no output noted). Ondansetron PRN given x1, patient only wants to drink water and guzman. Voiding per toilet without issue. Abdominal midline incision C/D/I. LFA PIV patent. States he is going home today NO MATTER WHAT!, even if it means leaving AMA. States he has a ride coming at 1100. Continue plan of care. ileostomy= 600 mls green JUAN= 0 mls Admitting Diagnosis: DIVERTICULITIS Blood Pressure: 151/73 (07/09/2024 23:47) Pulse: 59 (07/09/2024 23:47) Temperature: 97.9 F [36.6 C] (07/09/2024 23:47) Respiratory Rate: 18 (07/09/2024 23:47) Oxygen Saturation: 98% (07/09/2024 23:47) Delivery of Oxygen: Room Air Lung Sounds: Bilaterally clear Cough: None Secretions: Other: none Labs: TROPONIN - NONE FOUND POTASSIUM 3.4 L (07/08/24) WBC 15.3 H (07/09/24) HGB 15.1 (07/09/24) Rhythm: Other: no telemetry See ICCA for detailed assessment, Education provided on medication/cares this shift as needed Assessment Type: SKIN REINSPECTION/REASSESSMENT SKIN INSPECTION: Skin Color: Usual for ethnicity Skin Temperature: Warm Skin Moisture: Dry Skin Turgor: Non-Elastic INTERVENTIONS: No change in previous interventions as listed below 07/09/2024 Vaaes Pressure Injury Int Not Needed Incision and Flaps: Incision 1: Location: abdominal incision Closure: Jeannine Stabilization: None Surrounding tissue: Intact Wound drainage none. Skin Interventions performed this shift: Patient's heels elevated with pressure relief boots or pillows under calves. Patient kept clean and dry with barrier cream applied as ordered. Head of Bed kept below 30 degrees unless otherwise ordered. /alexi/ CEDRIC JONES BSN, RN REGISTERED NURSE Signed: 07/10/2024 07:30 CEDRIC JONES [facility] Jul 09, 2024 09:20 PM NURSING INPATIENT NOTE: LOCAL TITLE: [facility] NURSING PROGRESS NOTE STANDARD TITLE: NURSING INPATIENT NOTE DATE OF NOTE: JUL 09, 2024@21:20 ENTRY DATE: JUL 09, 2024@21:20:55 AUTHOR: PAOLA RAMÍREZ COSIGNER: URGENCY: STATUS: COMPLETED Nursing Shift Note Nursing care provided from 1530 to 2400 Highlights from shift: [place] is A&OX4, able to make needs known, very irritable, VSS, RA. Pain control with current regimen. SINGER, CMS intact, palpable pedal pulses. Lungs are diminished at the bases. Active bowel sounds, ileostomy intact, 500 cc of Jello- like output, is independent with ostomy care. Refused 2100 dose of Atropine because it makes him sick. Voiding in bathroom. JUAN intact 3 cc of bloody output. See ICCA for detailed assessment, Education provided on medication/cares this shift as needed Assessment Type: SKIN REINSPECTION/REASSESSMENT SKIN INSPECTION: Skin Color: Usual for ethnicity Skin Temperature: Warm Skin Moisture: Normal Skin Turgor: Elastic (normal/immediate) INTERVENTIONS: No change in previous interventions as listed below 07/09/2024 Vaaes Pressure Injury Int Not Needed RISK FACTORS THAT INCREASE RISK FOR DEVELOPING PRESSURE INJURIES The patient/resident does not have any additional risk factors. Wound - other than pressure ulcer/injury (includes open surgical wounds/incisions): Location: Abdominal midline closed with jeannine No Edema Wound drainage none. OSTOMY: GASTROINTESTINAL: Type: Location(s): RLQ Ileostomy Stoma: Established Stoma Description: Round Surrounding tissue: Intact Ostomy Management: Independent Skin Interventions performed this shift: Patient kept clean and dry with barrier cream applied as ordered. Device(s) removed and skin underneath was inspected. Head of Bed kept below 30 degrees unless otherwise ordered. /alexi/ PAOLA RAMÍREZ RN Signed: 07/09/2024 23:59 PAOLA RAMÍREZ [facility] Jul 09, 2024 01:46 PM NURSING INPATIENT NOTE: LOCAL TITLE: [facility] NURSING PROGRESS NOTE STANDARD TITLE: NURSING INPATIENT NOTE DATE OF NOTE: JUL 09, 2024@13:46 ENTRY DATE: JUL 09, 2024@13:46:43 AUTHOR: YONATHAN BRASHER COSIGNER: URGENCY: STATUS: COMPLETED Nursing Shift Note Operative Procedure(s) laproscopic converted to open sigmoid colectomy, splenic flexure mobilization, diverting loop ileostomy, flexable sigmoidoscopy POD# 6 Admitting Diagnosis: DIVERTICULITIS Temperature: 98.1 F [36.7 C] (07/09/2024 09:36) Pulse: 67 (07/09/2024 09:36) Respiratory Rate: 16 (07/09/2024 09:36) Blood Pressure: 134/78 (07/09/2024 09:36) Oxygen Saturation: 99% (07/09/2024 09:36) Delivery of Oxygen: PAIN LEVEL: 1 (07/09/2024 09:36) HGB 15.1 (07/09/24) WBC 15.3 H (07/09/24) SODIUM 134 L (07/08/24) PT 13.9 H (06/21/24) INR 1.2 H PLASMA (06/21/24 17:24) Nursing care provided from [id number] Highlights from shift: Alert and oriented x 4. CMS+. Dp/PT palpable, no edema noted. Lung sounds clear with diminsined bases, remain on room air with sats mid 90's. Abdomen soft, appropriately tender, bowel sounds present x 4 quadrants, RLQ ostomy with green stool output. ostomy output loose, but slowing pt emptying ostomy independent, stoma beefy red/healthy. JUAN present to LLQ as well with scant serosanguinous output noted (no output noted). pt appetite improving, no PRN nausea medication given today. Voiding per toilet without issue. Abdominal midline incision C/D/i per lorelei. LFA PIV patent. See ICCA for detailed assessment Assessment Type: SKIN REINSPECTION/REASSESSMENT SKIN INSPECTION: Skin Color: Usual for ethnicity Skin Temperature: Warm Skin Moisture: Normal Skin Turgor: Elastic (normal/immediate) Clotilde Skin Assessment: The patient's Clotilde Scale Score is 20. The patient is [...] needed - patient/resident is not at risk. SKIN INTEGRITY: Intact Incision and Flaps: Incision 1: Location: Abdominal midline Closure: Jeannine Stabilization: None Wound drainage none. OSTOMY: GASTROINTESTINAL: Type: Ileostomy Stoma: New Stoma Description: Round Beefy red Surrounding tissue: Usual for ethnicity Ostomy Management: Independent Skin Interventions performed this shift: Device(s) removed and skin underneath was inspected. Head of Bed kept below 30 degrees unless otherwise ordered. /es/ NICOLIS G BAUMGARD, SYSTEM SUPPORT ADMINISTRATOR NURSE Signed: 07/09/2024 15:31 YONATHAN BRASHER [facility] Jul 09, 2024 08:44 AM PRIMARY CARE NOTE: LOCAL TITLE: MEDICINE INPT CO-MANAGEMENT NOTE STANDARD TITLE: PRIMARY CARE NOTE DATE OF NOTE: JUL 09, 2024@08:44 ENTRY DATE: JUL 09, 2024@08:44:28 AUTHOR: BERTA HOLLOWAY EXP COSIGNER: URGENCY: STATUS: COMPLETED MEDICINE INPATIENT STAFF PROGRESS NOTE SUBJECTIVE Patient is sitting upright in a recliner chair and informs that he absolutely does not like this hospital and he is going to work on his insurance and will get care at [facility]. Asked patient review of system and he denied any fever shaking chills or night sweats overnight. He denies any chest pain or abdominal pain. Yesterday he was concerned about left gynecomastia however today he just wants to go home and does not want to discuss any medical issues or concerns. RN has no acute concerns and overnight no events. EXAM Temperature: 97.4 F [36.3 C] (07/09/2024 00:12) Blood Pressure: 165/80 (07/09/2024 00:12) repeat blood pressure 134/78 Pulse: 59 (07/09/2024 00:12) Respiration: 16 (07/09/2024 00:12) Pain: 1 (07/09/2024 05:09) Pulse Oximetry: 96% (07/09/2024 00:12) on room air GENERAL: Alert and oriented x 3 pleasant obese gentleman in no distress HEENT: OP clear, MMM, no mucosal lesions RESPIRATORY: Clear to auscultation bilaterally CARDIOVASCULAR: S1-S2 regular no murmur no S3 no S4 CHEST: Left gynecomastia without any tenderness or induration GASTROINTESTINAL: Soft, appears full with ileostomy in right lower quadrant with green liquid stools, incision well-approximated without any induration or drainage, serosanguineous output noted in JUAN drain EXTREMITIES: No edema both lower extremities SKIN: No rash or breakdown NEURO: Nonfocal neurological exam LABORATORY AND IMAGING Collection DT Spec WBC HGB HCT PLT MCV NEUT LYMPHS 07/09/2024 05:30 BLOOD 15.3 H 15.1 45.7 443 H 93.1 07/08/2024 05:30 BLOOD 17.5 H 14.9 45.7 472 H 93.6 07/07/2024 05:30 BLOOD 21.2 H 15.9 48.3 500 H 94.9 UREA NITROGEN 26 (07/08/24) CREATININE 0.9 (07/08/24) GLUCOSE 128 H (07/08/24) SODIUM 134 L (07/08/24) CHLORIDE 100 (07/08/24) POTASSIUM 3.4 L (07/08/24); potassium was replaced CO2 24 (07/08/24) ASSESSMENT AND PLAN MEGFLACA LOBO is a 73 y/o with a PMHx of HFpEF, HTN, CAD with PCI 2016, obesity, left gynecomastia, JUANJOSE(not using CPAP), BL GAIL aneurysms, chronic diverticulitis with colovesicular fistula was admitted on 07/03/2024 for cystourethroscopy and bilateral placement of 5 Yemeni open-ended catheters for patient getting sigmoidectomy and open his splenic flexure mobilization with colorectal anastomosis and diverting loop ileostomy secondary to severely inflamed sigmoid colon adhered to abdominal wall and pelvic sidewall with abscess including a cavity within the small bowel mesentery. Postop day #5 Continues to have high ileostomy output Fiber preparation for colorectal fellow Will put oral rehydration therapy recommendations the patient does not get dehydrated Accurate intake and output and daily weight Leukocytosis resolving Zosyn 07/03/2024 to 07/09/2024 HFpEF/CAD/HTN Compensated heart failure Continue isosorbide empagliflozin atorvastatin and resume lisinopril HCTZ has been discontinued as well as furosemide secondary to patient being dehydrated with increased ileostomy output Will advise patient to weigh himself daily if possible Continue daily weight here and intake and output Normal saline fluid bolus if patient is not deficit BMP tomorrow morning Resume enteric-coated 81 mg aspirin at the time of discharge as per vascular Chronic Medical Conditions: 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 Patient remains asymptomatic Avoid any beta-rina or calcium channel rina Hyperlipidemia; continue atorvastatin Obstructive sleep apnea untreated Patient has no plans to comply with CPAP Left gynecomastia Likely secondary to spironolactone Patient does not have any family family history of breast cancer Will defer to PCP FEN: Improving oral intake, encourage ORT PPX: Enoxaparin CODE STATUS: Full code DISPO: Home once ileostomy output is controlled Plan of care discussed with the patient and RN taking care of patient // BERTA HOLLOWAY Hospitalist Signed: 07/09/2024 20:25 BERTA HOLLOWAY [facility] Jul 09, 2024 06:47 AM COLON & RECTAL SURGERY NOTE: LOCAL TITLE: COLON-RECTAL INPT PROGRESS NOTE STANDARD TITLE: COLON & RECTAL SURGERY NOTE DATE OF NOTE: JUL 09, 2024@06:47 ENTRY DATE: JUL 09, 2024@06:47:54 AUTHOR: HERMAN RAYGOZA COSIGNER: URGENCY: STATUS: COMPLETED INPATIENT PROGRESS NOTE Subjective: Upset at having students and trainees around. Otherwise appears comfortable. Objective: Alert, oriented Non labored on room air Abdomen soft, non tender. Midline incision intact. Drain with serosanguineous output. Ostomy with gas and stool in appliance. Active Medications: Active Inpatient Medications (including Supplies): Active Inpatient Medications Status 1) ACETAMINOPHEN (INPT) TAB 1000MG PO Q8H ACTIVE 2) ATORVASTATIN TAB 20MG PO QHS ACTIVE 3) ATROPINE 0.025MG/DIPHENOXYLATE 2.5MG TAB 1 TABLET PO ACTIVE QID For Ileostomy Output. 4) EMPAGLIFLOZIN TAB,ORAL 12.5MG PO QDAY ACTIVE 5) ENOXAPARIN INJ 40MG/0.4ML SQ QNOON Prophylactic ACTIVE protocol *give only in abdomen 6) ISOSORBIDE MONONITRATE TAB,SA 30MG PO QDAY ACTIVE 7) METHOCARBAMOL TAB 500MG PO Q4H ACTIVE 8) NALOXONE INJ,SOLN 0.4MG/1ML IV PRN For opioid ACTIVE overdose (difficult to arouse and RR<8). Call provider or HOSTLER HELPER. May repeat every 2-3 min up to 3 total doses. Administer INTRAMUSCULARLY if no IV access. 9) NITROGLYCERIN TAB,SUBLINGUAL 0.4MG SL QDAY PRN for ACTIVE chest pain 10) ONDANSETRON TAB 8MG PO Q6H PRN FOR NAUSEA ACTIVE 11) OXYCODONE TAB 5MG - 10MG PO Q4H PRN Sliding Scale - ACTIVE 1-5/10 pain 5MG, 6-10/10 pain 10 MG 12) PIPERACILLIN/TAZOBACTAM 3.375GM 50ML INJ in ACTIVE PIPERACIL/TAZOB 3.375GM PREMIX 50 ML INFUSE OVER 30 Minutes Cont zosyn until 11/11 - 10PM IVPB Q6H 13) POTASSIUM CHLORIDE LIQUID (20MEQ/15ML) 20MEQ/15ML PO ACTIVE QPM Dilute each cup in at least 4 ounces of cold water or other beverage. K3.6; PLEASE DO NOT GIVE WITH ATROPINE 14) PROCHLORPERAZINE INJ 5MG/1ML IV Q6H PRN If zofran ACTIVE ineffective 15) SALINE FLUSH INJ 10ML IV Q8H AFTER EACH USE, MINIMUM ACTIVE OF EVERY SHIFT. 16) SPIRONOLACTONE TAB 12.5MG PO QDAY ACTIVE Labs: - INR: INR 1.2 H PLASMA (06/21/24 17:24) - Complete Blood Count White count: WBC 17.5 H (07/08/24) Hemoglobin: HGB 14.9 (07/08/24) Hematocrit: HCT 45.7 (07/08/24) Platelets: PLT 472 H (07/08/24) - Complete Metabolic Panel SODIUM 134 L (07/08/24) POTASSIUM 3.4 L (07/08/24) CHLORIDE 100 (07/08/24) CO2 24 (07/08/24) UREA NITROGEN 26 (07/08/24) CREATININE 0.9 (07/08/24) GLUCOSE 128 H (07/08/24) CALCIUM 9.8 (07/08/24) MAGNESIUM 1.8 (07/08/24) EGFR (04/01) 07/10/2021@0641 74 CREATININE EGFR (CKD-EPI) 07/08/2024@0530 >90 AST/SGOT 23 (06/23/24) ALT/SGPT 12 (06/23/24) ALK PHOSPHATASE 77 (06/23/24) ALBUMIN 3.7 (06/23/24) BILIRUBIN, TOTAL 0.8 (06/23/24) Imaging Assessment/Plan: 74 y/o M with h/o CAD, HLD, HTN, CKD, HFrEF, and diverticulitis complicated by colovesicular fistula and abscess formation requiring a drain in March 2024 s/p drain removal and subsequent abscess formation with IR drain placement on 06/22. Patient is now s/p laparoscopic converted to open sigmoid colectomy, splenic flexure mobilization, diverting loop ileostomy, flex sig with bilateral ureteral stent placement with CRS & Urology on 07/03/24. Post op course with high ileostomy output. Did not tolerate loperamide so switched to Lomotil 4x/day. Leukocytosis has resolved, workup with CT and UA were unremarkable. Plan: - start fiber wafer for high ileostomy output despite Lomotil - Consults: Medicine co-management, WOCN for new stoma, PT/OT. Appreciate recommendations - Pain control: tylenol, robaxin, oxycodone, - Keep drain for now - Ppx: DVT- lovenox - Diet: Regular - GI: Lomotil - Dispo: cont inpt. pending home RN assistance, CT scan read, Xray read, UA and ileostomy output Current Level of Care: Acute Urinary Catheter/Centeral Lines: Fluids/Electrolytes/Nutrition (FEN): Deep Vein Thrombosis (DVT) Prophylaxis: Code Status: Disposition: Discussed with Dr. Maurice Additional Secondary Diagnoses /es/ HERMAN RAYGOZA COLORECTAL FELLOW Signed: 07/09/2024 07:04 HERMAN RAYGOZA [facility] Jul 08, 2024 10:24 PM NURSING INPATIENT NOTE: LOCAL TITLE: [facility] NURSING PROGRESS NOTE STANDARD TITLE: NURSING INPATIENT NOTE DATE OF NOTE: JUL 08, 2024@22:24 ENTRY DATE: JUL 08, 2024@22:24:23 AUTHOR: ALIA PINTO EXP COSIGNER: URGENCY: STATUS: COMPLETED Nursing Shift Note Nursing care provided from [id number] Highlights from shift: in bed at start of shift. Reports 3/10 pain and discomfort/nausea in abdomen- PRN zofran administered 2100 and 0330. PRN effective. Throughout tour, [place] refused scheduled tylenol and methocarbomal. Pain became more elevated, PRN oxycodone was administered 5 mg. A&Ox4. Able to make needs known. Uses call light appropriately. Lung sounds clear, diminished in bases. Bowel sounds active in all quads. LLQ ostomy, stoma healthy pink. RLQ JUAN, gauze in place at insertion site- CDI. serosangious drainage. Pulses palpable. [place] independent with tranfers and ostomy cares. Silverlon dressing covering abdominal incision CDI. receiving NS 0.9 at rate of 50 for low sodium level. 2300 and 0500 zoysn antibiotic administered. Left forearm PIV patent and infusing. See ICCA for detailed assessment, Education provided on medication/cares this shift as needed Assessment Type: SKIN REINSPECTION/REASSESSMENT SKIN INSPECTION: Skin Color: Usual for ethnicity Skin Temperature: Warm Skin Moisture: Normal Skin Turgor: Elastic (normal/immediate) Clotilde Skin Assessment: The patient's Clotilde Scale Score is 22. The patient is [...] not have any additional risk factors. SKIN ALTERATIONS: Wound Documentation from the past year: Skin Assessment 07/08/2024 Skin Integrity - Wound 07/07/2024 Skin Integrity - Wound abdominal incision with silverlon in plcae, cdi 07/07/2024 Skin Integrity - Wound lower midline incision, silverlon dressing changed due to being saturated from iliostomy leaking 07/07/2024 Skin Integrity - Wound 07/06/2024 Skin Integrity - Wound 07/05/2024 Skin Integrity - Wound 07/05/2024 Skin Integrity - Wound 07/04/2024 Skin Integrity - Wound 07/03/2024 Skin Integrity - Wound abdomen incision with silerlon dressing, shadow drainage. 06/25/2024 Skin Integrity - Wound 06/24/2024 Skin Integrity - Wound low abdominal JUAN site - cdi 06/24/2024 Skin Integrity - Wound LLQ UJAN site, CDI. 06/23/2024 Skin Integrity - Wound -LLQ: JUAN drain; stay fix dressing is CDI, tubing securment device applied. Incision and Flaps: Incision 1: Location: silverlon- abdominal incision, CDI Wound drainage none. Skin Interventions performed this shift: Patient turned [id number] or as appropriate while in bed. Device(s) removed and skin underneath was inspected. Head of Bed kept below 30 degrees unless otherwise ordered. /alexi/ ALIA CHRISTIANSON, RN Signed: 07/09/2024 07:04 ALIA PINTO [facility] Jul 08, 2024 07:18 PM NURSING INPATIENT NOTE: LOCAL TITLE: [facility] NURSING PROGRESS NOTE STANDARD TITLE: NURSING INPATIENT NOTE DATE OF NOTE: JUL 08, 2024@19:18 ENTRY DATE: JUL 08, 2024@19:18:45 AUTHOR: YONATHAN BRAHSER EXP COSIGNER: URGENCY: STATUS: COMPLETED Nursing Shift Note Nursing care provided from [id number] Operative Procedure(s) laproscopic converted to open sigmoid colectomy, splenic flexure mobilization, diverting loop ileostomy, flexable sigmoidoscopy POD# 5 Admitting Diagnosis: DIVERTICULITIS Temperature: 98.2 F [36.8 C] (07/08/2024 17:29) Pulse: 64 (07/08/2024 17:29) Respiratory Rate: 16 (07/08/2024 17:29) Blood Pressure: 121/67 (07/08/2024 17:29) Oxygen Saturation: 97% (07/08/2024 17:29) Delivery of Oxygen: Room Air PAIN LEVEL: 3 (07/08/2024 17:29) MOST RECENT LABS: POTASSIUM 3.4 L (07/08/24) MAGNESIUM 1.8 (07/08/24) CREATININE 0.9 (07/08/24) HGB 14.9 (07/08/24) WBC 17.5 H (07/08/24) SODIUM 134 L (07/08/24) Highlights from shift: Alert and oriented x 4. CMS+. Dp/PT palpable, no edema noted. Lung sounds clear with diminsined bases, remain on room air with sats mid 90's. Abdomen soft, appropriately tender, bowel sounds present x 4 quadrants, RLQ ostomy with green stool output. ostomy output loose and large amounts to start the day ~450 ml prior to 11am. Once pt give atropine significantly slowed down with only 200 ml out since 11 am. At 17oo, held Atropine as ostomy output was becoming pudding thick, SOD alerted. pt emptying ostomy independent, stoma beefy red/healthy. JUAN present to LLQ as well with serosanguinout output noted (no output noted). pt appetite significantly improved, no PRN nausea medication given today. Voiding per toilet without issue. Abdominal midline incision C/D/i per lorelei. LFA PIV patent. See ICCA for detailed assessment Assessment Type: SKIN REINSPECTION/REASSESSMENT SKIN INSPECTION: Skin Color: Usual for ethnicity Skin Temperature: Warm Skin Moisture: Normal Skin Turgor: Elastic (normal/immediate) Clotilde Skin Assessment: The patient's Clotilde Scale Score is 20. The patient is [...] tubing, urinary catheters, cell phone etc.) Comment: ostomy SKIN INTEGRITY: Intact Incision and Flaps: Incision 1: Location: Abdominal midline Closure: Jeannine Wound drainage none. OSTOMY: GASTROINTESTINAL: Type: Ileostomy Stoma: New Stoma Description: Round Beefy red Surrounding tissue: Usual for ethnicity Intact Skin Interventions performed this shift: Device(s) removed and skin underneath was inspected. Head of Bed kept below 30 degrees unless otherwise ordered. /alexi/ YONATHAN BRASHER RN STAFF NURSE Signed: 07/08/2024 19:55 YONATHAN BRASHER [facility] Jul 08, 2024 11:15 AM COLON & RECTAL SURGERY NOTE: LOCAL TITLE: COLON-RECTAL INPT PROGRESS NOTE STANDARD TITLE: COLON & RECTAL SURGERY NOTE DATE OF NOTE: JUL 08, 2024@11:15 ENTRY DATE: JUL 08, 2024@11:16:02 AUTHOR: KATELYNN PERSON COSIGNER: URGENCY: STATUS: COMPLETED INPATIENT PROGRESS NOTE Subjective: Pt reports doing better today than he was yesterday. He has been emptying his own ileostomy bag. He reports not having tolerated the imodium yesterday so he stoped taking it. He has been tolerating his diet Objective: Alert, oriented NAD NLB Abd is distended but soft, appropriately tender, liquid output from ileostomy. Juan drain with s/s output CN II-XII grossly intact, no focal deficits Active Medications: Active Inpatient Medications (including Supplies): Active Inpatient Medications Status 1) ACETAMINOPHEN (INPT) TAB 1000MG PO Q8H ACTIVE 2) ATORVASTATIN TAB 20MG PO QHS ACTIVE 3) ATROPINE 0.025MG/DIPHENOXYLATE 2.5MG TAB 1 TABLET PO ACTIVE QID For Ileostomy Output. 4) EMPAGLIFLOZIN TAB,ORAL 12.5MG PO QDAY ACTIVE 5) ENOXAPARIN INJ 40MG/0.4ML SQ QNOON Prophylactic ACTIVE protocol *give only in abdomen 6) FUROSEMIDE TAB 20MG PO QDAY ACTIVE 7) HYDROCHLOROTHIAZIDE/LISINOPRI L TAB 1 TABLET PO QDAY ACTIVE 8) ISOSORBIDE MONONITRATE TAB,SA 30MG PO QDAY ACTIVE 9) METHOCARBAMOL TAB 500MG PO Q4H ACTIVE 10) NALOXONE INJ,SOLN 0.4MG/1ML IV PRN For opioid ACTIVE overdose (difficult to arouse and RR<8). Call provider or HOSTLER HELPER. May repeat every 2-3 min up to [...] PREMIX 50 ML INFUSE OVER 30 Minutes Cont zosyn until 11 - 10PM IVPB Q6H 15) PROCHLORPERAZINE INJ 5MG/1ML IV Q6H PRN If zofran ACTIVE ineffective 16) SALINE FLUSH INJ 10ML IV Q8H AFTER EACH USE, MINIMUM ACTIVE OF EVERY SHIFT. 17) SPIRONOLACTONE TAB 12.5MG PO QDAY ACTIVE Labs: - INR: INR 1.2 H PLASMA (06/21/24 17:24) - Complete Blood Count White count: WBC 17.5 H (07/08/24) Hemoglobin: HGB 14.9 (07/08/24) Hematocrit: HCT 45.7 (07/08/24) Platelets: PLT 472 H (07/08/24) - Complete Metabolic Panel SODIUM 134 L (07/08/24) POTASSIUM 3.4 L (07/08/24) CHLORIDE 100 (07/08/24) CO2 24 (07/08/24) UREA NITROGEN 26 (07/08/24) CREATININE 0.9 (07/08/24) GLUCOSE 128 H (07/08/24) CALCIUM 9.8 (07/08/24) MAGNESIUM 1.8 (07/08/24) EGFR (04/01) 07/10/2021@0641 74 CREATININE EGFR (CKD-EPI) 07/08/2024@0530 >90 AST/SGOT 23 (06/23/24) ALT/SGPT 12 (06/23/24) ALK PHOSPHATASE 77 (06/23/24) ALBUMIN 3.7 (06/23/24) BILIRUBIN, TOTAL 0.8 (06/23/24) Imaging CT ABD/PELVIS W CONTRAST - 07/08 -Impression pending Chest X-Ray 2 views - 07/08 -Impression pending Assessment/Plan: 74 y/o M with h/o CAD, HLD, [...] placement with CRS & Urology on 07/03/24. POD#4- although ileostomy is not being accurately recorded since pt is dumping his own output, we are concerned for potential of high output given its appearance on exam. d/w patient about the importance of measuring output. worsening leukocytosis but clinically appears to be recovering appropriately POD#5 - pt has been more compliant with ileostomy output record which shows 1150/24h and 450/8H. we are concerned for potential of high output given its appearance on exam. Pt did not tolerated the imodium so we switched him to lomotil. Pt leukocytosis is now downtrending but still elevated. UA, CT, and chest x-ray ordered for work up of leukocytosis. Plan: - Consults: Medicine co-management, WOCN for new stoma, PT/OT. Appreciate recommendations - Pain control: tylenol, robaxin, oxycodone, - Cont zosyn - Cont to trend WBC - Keep drain for now - Ppx: DVT- lovenox - Diet: Regular - GI: Lomotil - Dispo: cont inpt. pending home RN assistance, CT scan read, Xray read, UA and ileostomy output Patient was seen with CRS fellow who discussed with staff /alexi/ KATELYNN PERSON PLASTIC/RESIDENT Signed: 07/08/2024 11:27 Receipt Acknowledged By: 07/13/2024 19:35 /alexi/ WENCESLAO POON MD STAFF SURGEON, COLON/RECTAL KATELYNN PERSON [facility] Jul 08, 2024 09:17 AM PRIMARY CARE NOTE: LOCAL TITLE: MEDICINE INPT CO-MANAGEMENT NOTE STANDARD TITLE: PRIMARY CARE NOTE DATE OF NOTE: JUL 08, 2024@09:17 ENTRY DATE: JUL 08, 2024@09:17:09 AUTHOR: BERTA HOLLOWAY EXP COSIGNER: URGENCY: STATUS: COMPLETED MEDICINE INPATIENT STAFF PROGRESS NOTE SUBJECTIVE Patient reports no events overnight. Actually if feels very good today as he informs the best he has felt in couple of days. Overnight absolutely no fever shaking chills night sweats, denies any nausea vomiting , Abdominal pain is well-controlled and is not an issue for him today. He was however concerned about his left subareolar tissue increasing in size and wanted to know if it is something to be concerned about for his left gynecomastia. EXAM Temperature: 97.2 F [36.2 C] (07/07/2024 23:44) Blood Pressure: 130/68 (07/07/2024 23:44) Pulse: 60 (07/07/2024 23:44) Respiration: 18 (07/07/2024 23:44) Pain: 0 (07/07/2024 23:44) Pulse Oximetry: 94% (07/07/2024 23:44) GENERAL: Alert and oriented x 3 very pleasant gentleman in no distress HEENT: Oropharynx clear, no mucosal lesions noted NECK: Supple no JVD lymphadenopathy RESPIRATORY: Clear to auscultation bilaterally without crackles or wheezes CARDIOVASCULAR: S1-S2 regular no murmur no S3 no S4 GASTROINTESTINAL: Appears full but soft, no epigastric tenderness, ileostomy with greenish liquid output, JUAN drain noted with serosanguineous output, incisions well-approximated no induration or swelling noted. EXTREMITIES: No edema both lower extremities SKIN: No skin breakdown or rash NEURO: Nonfocal neurological exam LABORATORY AND IMAGING LAB RESULTS TODAY -reviewed CT scan of abdomen and pelvis reviewed Chest x-ray reviewed ASSESSMENT AND PLAN MEGFLACA LOBO is a 73 y/o with a PMHx of CAD, HTN, HLD, HFrEF, CKD with development of colovesicular fistula and abscess formation underwent cystoscopy and bilateral ureteral stent placement as well as laparoscopic conversion of open sigmoid colectomy, splenic flexure mobilization, diverting loop ileostomy and flexible sigmoidoscopy, cystoscopy ureteroscopy and bilateral placement of 5 Yemeni open-ended catheters and ureteral Tracey catheter placement over a wire secondary to high bladder neck and to open ended catheter in place 07/03/2024. ACUTE ISSUES PERSISTENT LEUKOCYTOSIS IMPROVED FROM 21.2 K TO 17 K MILD ILEUS NOTED ON CT SCAN MILD DEHYDRATION WITH VERY HIGH URINE SPECIFIC GRAVITY HYPOKALEMIA BORDERLINE MAGNESIUM LEVEL 1.9 --> 1.8 RECOMMENDATIONS Continue Zosyn for now Discontinue atropine Will discontinue light Lasix and hydrochlorothiazide Encourage oral intake Consider giving her normal saline bolus of 500 cc Replace potassium and magnesium orally for now Continue monitoring daily CBC and CMP for next 2 days Incidental findings for follow up: Left gynecomastia Chronic Medical Conditions: REVIEWED ECHOCARDIOGRAM DONE ON 04/24/2024 LVEF 60 TO 65% RV SYSTOLIC FUNCTION NORMAL NO REGIONAL LEFT VENTRICULAR WALL MOTION ABNORMALITY FEN: Continue oral intake PPX: As per surgery team CODE STATUS: Full code FAMILY: Will ask patient about emergency contact and DPOA DISPO: Home hopefully or STR Will discuss with SOD or CRS team about recommendations /alexi/ BERTA HOLLOWAY Hospitalist Signed: 07/08/2024 17:59 BERTA HOLLOWAY [facility] Jul 07, 2024 11:00 PM NURSING INPATIENT NOTE: LOCAL TITLE: [facility] NURSING PROGRESS NOTE STANDARD TITLE: NURSING INPATIENT NOTE DATE OF NOTE: JUL 07, 2024@23:00 ENTRY DATE: JUL 07, 2024@23:00:28 AUTHOR: ALIA PINTO EXP COSIGNER: URGENCY: STATUS: COMPLETED Nursing Shift Note Nursing care provided from [phone] Highlights from shift: in bed at start of shift. reports pain 5/10 in abdominal area. Scheduled pain medication administered. VSS. Bowel sounds active. Lung sounds clear. 2100 and 0500 zosyn administered. Airplane Captain and Veterans agreed to be diligent upon checking ileostomy bag to prevent leakage and the need for a bag change, [place] tolerating fluids well. [place] describes not having much of an appetite for solid foods. PRN PO zofran administered @ 0020.PRN effective. Abdominal incision covered with silverlon dressing.CDI. Ileostomy in RLQ. Green/black liquid output. 650 mL out this tour. JUAN: 10 mL serosangious output See ICCA for detailed assessment, Education provided on medication/cares this shift as needed Assessment Type: SKIN REINSPECTION/REASSESSMENT SKIN INSPECTION: Skin Color: Usual for ethnicity Skin Temperature: Warm Skin Moisture: Normal Skin Turgor: Elastic (normal/immediate) Clotilde Skin Assessment: The patient's Clotilde Scale Score is 21. The patient is considered not at risk [...] not have any additional risk factors. SKIN ALTERATIONS: Wound Documentation from the past year: Skin Assessment 07/07/2024 Skin Integrity - Wound abdominal incision with silverlon in plcae, cdi 07/07/2024 Skin Integrity - Wound lower midline incision, silverlon dressing changed due to being saturated from iliostomy leaking 07/06/2024 Skin Integrity - Wound 07/05/2024 Skin Integrity - Wound 07/05/2024 Skin Integrity - Wound 07/04/2024 Skin Integrity - Wound 07/03/2024 Skin Integrity - Wound abdomen incision with silerlon dressing, shadow drainage. 06/25/2024 Skin Integrity - Wound 06/24/2024 Skin Integrity - Wound low abdominal JUAN site - cdi 06/24/2024 Skin Integrity - Wound LLQ JUAN site, CDI. 06/23/2024 Skin Integrity - Wound -LLQ: JUAN drain; stay fix dressing is CDI, tubing securment device applied. Incision and Flaps: Incision 1: Location: midline abdominal incision, silverlon in place, CDI Wound drainage none. Skin Interventions performed this shift: Patient turned [id number] or as appropriate while in bed. /alexi/ ALIA CHRISTIANSON, RN Signed: 07/08/2024 06:22 ALIA PINTO [facility] Jul 07, 2024 06:26 PM COLON & RECTAL SURGERY NOTE: LOCAL TITLE: COLON-RECTAL INPT PROGRESS NOTE STANDARD TITLE: COLON & RECTAL SURGERY NOTE DATE OF NOTE: JUL 07, 2024@18:26 ENTRY DATE: JUL 07, 2024@18:26:45 AUTHOR: AYLA MAYEN EXP COSIGNER: URGENCY: STATUS: COMPLETED Brief CRS Note Plan to continue Zosyn through tonight (end date now 07/08 PM) given leukocytosis. Repeat CBC tomorrow to trend WBC. Ayla Mayen DO General Surgery PGY-2 /es/ Ayla Mayen DO RESIDENT, GEN SURG Signed: 07/07/2024 18:28 AYLA MAYEN [facility] Jul 07, 2024 03:46 PM PRIMARY CARE NOTE: LOCAL TITLE: MEDICINE INPT CO-MANAGEMENT NOTE STANDARD TITLE: PRIMARY CARE NOTE DATE OF NOTE: JUL 07, 2024@15:46 ENTRY DATE: JUL 07, 2024@15:46:58 AUTHOR: JEVON ZAZUETA EXP COSIGNER: URGENCY: STATUS: COMPLETED MEDICINE INPT CO-MANAGEMENT NOTE Has ADDENDA DAILY MEDICAL PROGRESS NOTE Nursing Notes reviewed. SUBJECTIVE: Attempted to meet with FLACA WEAVER who is a 73 y/o MALE x 2, was sleeping. I elected not to wake him up. Per the RN he has been doing well. Reports his ileostomy output has been watery and has leaked/opened a couple times making a mess, he is getting upset about this. She had no other concerns. OBJECTIVE VITALS: Blood pressure: Measurement DT BP 07/07/2024 00:24 133/81 07/06/2024 17:52 132/64 07/06/2024 12:18 136/88 Pulse: Measurement DT PULSE 07/07/2024 00:24 101 07/06/2024 17:52 92 07/06/2024 09:11 93 RR: 18 Temp: 97.4 F [36.3 C] SaO2: 97% on RA REVIEW OF SYSTEMS A 10 point system review was done and found to be negative and non- contributory, unless noted in the HPI. PHYSICAL EXAM: GENERAL: Elderly male resting in bed, appears comfortable, NAD. RESPIRATORY: Regular/relaxed work of breathing, no cough. SKIN: No rash seen on visible skin. PERTINENT MEDICATIONS: Active Inpatient Medications (including Supplies): Active Inpatient Medications Status 1) ACETAMINOPHEN (INPT) TAB 1000MG PO Q8H ACTIVE 2) ATORVASTATIN TAB 20MG PO QHS ACTIVE 3) EMPAGLIFLOZIN TAB,ORAL 12.5MG PO QDAY ACTIVE 4) ENOXAPARIN INJ 40MG/0.4ML SQ QNOON Prophylactic ACTIVE protocol *give only in abdomen 5) FUROSEMIDE TAB 20MG PO QDAY ACTIVE 6) HYDROCHLOROTHIAZIDE/LISINOPRI L TAB 1 TABLET PO QDAY ACTIVE 7) HYDROMORPHONE INJ,SOLN 0.2-0.4 MG IV Q6H PRN Give ACTIVE this medication when pain is not controlled by oral medications. Give 0.2 mg for pain scale of 4-7. Give 0.4 mg for pain scale of 8-10. 8) ISOSORBIDE MONONITRATE TAB,SA 30MG PO QDAY ACTIVE 9) LOPERAMIDE CAP,ORAL 2MG PO BID maximum 16mg/24hr ACTIVE 10) METHOCARBAMOL TAB 500MG PO Q4H ACTIVE 11) NALOXONE INJ,SOLN 0.4MG/1ML IV PRN For opioid ACTIVE overdose (difficult to arouse and RR<8). Call provider or HOSTLER HELPER. May repeat every 2-3 min up to 3 total doses. Administer INTRAMUSCULARLY if no IV access. 12) NITROGLYCERIN TAB,SUBLINGUAL 0.4MG SL QDAY PRN for ACTIVE chest pain 13) ONDANSETRON TAB 8MG PO Q6H PRN FOR NAUSEA ACTIVE 14) OXYCODONE TAB 5MG - 10MG PO Q4H PRN Sliding Scale - ACTIVE 1-5/10 pain 5MG, 6-10/10 pain 10 MG 15) PIPERACILLIN/TAZOBACTAM 3.375GM 50ML INJ in ACTIVE PIPERACIL/TAZOB 3.375GM PREMIX 50 ML INFUSE OVER 30 MINUTES For 4 days (07/03-07/07) IVPB Q6H 16) PROCHLORPERAZINE INJ 5MG/1ML IV Q6H PRN If zofran ACTIVE ineffective 17) SALINE FLUSH INJ 10ML IV Q8H [...] and diverting loop ileostomy. New plans today: -Did check C-diff due to watery stools, was negative. -Loperamide started by Colorectal. # Chronic diverticulitis c/b colovesicular fistula s/p lap converted to open sigmoid colectomy, splenic flexure mobilization, and diverting loop ileostomy, 5 Nov # Acute post operative pain # Leukocytosis, in setting of surgery, Dexamethasone and known recent fistula # Thrombocytosis, unclear etiology Etiology unclear. A febrile, non-toxic. Likely multifactorial with fistula/infection, reactive due to surgery, did get Dexamethasone during surgery. -Per Colorectal: Wound care, pain control, antibiotics, DVT prophylaxis, PT/OT/activity, diet resumed. -Agree with ongoing Zosyn, CRS noted they plan for 4 days post op, currently last day planned 07/07 in the PM. # Intermittent bradycardia, appears chronic # Known 2nd degree AV block type I ([place]) At times HR's down to mid 40's, [...] Atorvastatin. -Continue home Isosorbide and PRN Nitroglycerine. --Had a discussion with Vasc Surg, they are comfortable with Mr. Weaver resuming ASA 81 mg's daily at any time. Likely resume upon discharge. # HFpEF, LVEF 60-65% # HTN Appears [...] to follow. Prophylaxis: Lovenox q daily. Diet: VA healthy. IVF: None. /alexi/ Jevon Zazueta, ROD GREASER, GENERAL TECHNICIAN Nurse Practitioner, Specialty Care-Surgery Signed: 07/07/2024 15:57 07/07/2024 ADDENDUM STATUS: COMPLETED # Chronic diverticulitis c/b colovesicular fistula s/p lap converted to open sigmoid colectomy, splenic flexure mobilization, and diverting loop ileostomy, 5 Jun # Acute post operative pain # Leukocytosis, in setting of surgery, Dexamethasone and known recent fistula # Thrombocytosis, unclear etiology Went back and saw Mr. Weaver around 1800, he was up and ambulating. He reports he has been doing well. He reports his abdominal pain is improved/minimal. He is getting ongoing greenish stool/liquid and it leaks/breaks the seal on his ostomy at times. --Per the RN the stool at times has gotten to his abdominal incision, he will finish his empiric Zosyn this evening. He is doing well on RA, no cough/sputum, lungs are diminished in the bases but clear. No dysuria. No other obvious s/s of infection. Thus etiology on ongoing leukocytosis is unclear. -Do we consider a repeat abdominal CT to assess for fluid collections/source of infection? -Do we extend/continue empiric antibiotic coverage? --Will defer to the Colorectal team. /alexi/ Jevon Zazueta, PATTI, GENERAL TECHNICIAN Nurse Practitioner, Specialty Care-Surgery Signed: 07/07/2024 18:22 JEVON ZAZUETA [facility] Jul 07, 2024 03:37 PM COLON & RECTAL SURGERY NOTE: LOCAL TITLE: COLON-RECTAL INPT PROGRESS NOTE STANDARD TITLE: COLON & RECTAL SURGERY NOTE DATE OF NOTE: JUL 07, 2024@15:37 ENTRY DATE: JUL 07, 2024@15:37:37 AUTHOR: AYLA MAYEN COSIGNER: URGENCY: STATUS: COMPLETED INPATIENT PROGRESS NOTE Subjective: Doing well. emptying his own ileostomy. unclear of how much is actually coming out. Objective: Alert, oriented NAD NLB Abd is distended but soft, appropriately tender, liquid output from ileostomy. Juan drain with s/s output CN II-XII grossly intact, no focal deficits Active Medications: Active Inpatient Medications (including Supplies): Active Inpatient Medications Status 1) ACETAMINOPHEN (INPT) TAB 1000MG PO Q8H ACTIVE 2) ATORVASTATIN TAB 20MG PO QHS ACTIVE 3) EMPAGLIFLOZIN TAB,ORAL 12.5MG PO QDAY ACTIVE 4) ENOXAPARIN INJ 40MG/0.4ML SQ QNOON Prophylactic ACTIVE protocol *give only in abdomen 5) FUROSEMIDE TAB 20MG PO QDAY ACTIVE 6) HYDROCHLOROTHIAZIDE/LISINOPRI L TAB 1 TABLET PO QDAY ACTIVE 7) HYDROMORPHONE INJ,SOLN 0.2-0.4 MG IV Q6H PRN Give ACTIVE this medication when pain is not controlled by oral medications. Give 0.2 mg for pain scale of 4-7. Give 0.4 mg for pain scale of 8-10. 8) ISOSORBIDE MONONITRATE TAB,SA 30MG PO QDAY ACTIVE 9) LOPERAMIDE CAP,ORAL 2MG PO BID maximum 16mg/24hr ACTIVE 10) METHOCARBAMOL TAB 500MG PO Q4H ACTIVE 11) NALOXONE INJ,SOLN 0.4MG/1ML IV PRN For opioid ACTIVE overdose (difficult to arouse and RR<8). Call provider or HOSTLER HELPER. May repeat every 2-3 min up to 3 total doses. Administer INTRAMUSCULARLY if no IV access. 12) NITROGLYCERIN TAB,SUBLINGUAL 0.4MG SL QDAY PRN for ACTIVE chest pain 13) ONDANSETRON TAB 8MG PO Q6H PRN FOR NAUSEA ACTIVE 14) OXYCODONE TAB 5MG - 10MG PO Q4H PRN Sliding Scale - ACTIVE 1-5/10 pain 5MG, 6-10/10 pain 10 MG 15) PIPERACILLIN/TAZOBACTAM 3.375GM 50ML INJ in ACTIVE PIPERACIL/TAZOB 3.375GM PREMIX 50 ML INFUSE OVER 30 MINUTES For 4 days (07/03-07/07) IVPB Q6H 16) PROCHLORPERAZINE INJ 5MG/1ML IV Q6H PRN If zofran ACTIVE ineffective 17) SALINE FLUSH INJ 10ML IV Q8H AFTER EACH USE, MINIMUM ACTIVE OF EVERY SHIFT. 18) SPIRONOLACTONE TAB 12.5MG PO QDAY ACTIVE Labs: WBC 21.2 (18, 18.3, 20.6) Hgb 15.9 Plt 500 Na 138 K 3.4 BUN 12 Cr 0.7 Mg 1.9 Phos 3.6 Imaging No new imaging Assessment/Plan: 74yoM with h/o CAD, HLD, [...] placement with CRS & Urology on 07/03/24. POD#4- although ileostomy is not being accurately recorded since pt is dumping his own output, we are concerned for potential of high output given its appearance on exam. d/w patient about the importance of measuring output. worsening leukocytosis but clinically appears to be recovering appropriately Changes today - strict I/Os (CRS fellow discussed with patient who was in agreement) - Imodium 2mg BID to start today - discontinue dilaudid. last dose was 07/06 at 0246 (>24 hrs ago) - c. diff per medicine- negative Plan: - Consults: Medicine co-management, WOCN for new stoma, PT/OT. Appreciate recommendations - Pain control: tylenol, robaxin, oxycodone, - Zosyn x4d post-op (stop date: 07/07) - Cont to trend WBC - Keep drain for now - Ppx: DVT- lovenox - Diet: Regular - Dispo: cont inpt. pending home RN assistance and ileostomy output Patient seen with CRS fellow, Dr. Charles, who will d/w staff. Ayla Mayen DO General Surgery PGY-2 /es/ Ayla Mayen DO RESIDENT, GEN SURG Signed: 07/07/2024 15:50 AYLA MAYEN [facility] Jul 07, 2024 09:54 AM NURSING INPATIENT NOTE: LOCAL TITLE: [facility] NURSING PROGRESS NOTE STANDARD TITLE: NURSING INPATIENT NOTE DATE OF NOTE: JUL 07, 2024@09:54 ENTRY DATE: JUL 07, 2024@09:54:16 AUTHOR: ZACKARY JOSE EXP COSIGNER: URGENCY: STATUS: COMPLETED [facility] NURSING PROGRESS NOTE Has ADDENDA Nursing Shift Note Nursing care provided from [id number] Highlights from shift: Alert and oriented, able to make needs known. Up IND with ambulation. Self managing ileostomy. High output that was liquid in AM. Towards end of shift, stool becoming more formed. Silverlon dressing changed due to saturation. Takes medications whole with water. Pain well controlled with scheduled medications. See ICCA for detailed assessment, Education provided on medication/cares this shift as needed Assessment Type: SKIN REINSPECTION/REASSESSMENT SKIN INSPECTION: Skin Color: Usual for ethnicity Skin Temperature: Warm Skin Moisture: Normal Skin Turgor: Elastic (normal/immediate) Clotilde Skin Assessment: The patient's Clotilde Scale Score is 22. The patient is [...] tubing, urinary catheters, cell phone etc.) Comment: ostomy, JUAN Wound - other than pressure ulcer/injury (includes open surgical wounds/incisions): Location: lower midline incision, silverlon dressing changed due to being saturated from iliostomy leaking No Edema Wound drainage none. Skin Interventions performed this shift: Device(s) removed and skin underneath was inspected. Head of Bed kept below 30 degrees unless otherwise ordered. Other: IND with repositioning and ADLs /es/ ZACKARY JOSE RN Registered Nurse Signed: 07/07/2024 15:28 07/07/2024 ADDENDUM STATUS: COMPLETED Cared for patient from [id number] Operative Procedure(s) laproscopic converted to open sigmoid colectomy, splenic flexure mobilization, diverting loop ileostomy, flexable sigmoidoscopy POD# 4 Temperature: 98 F [36.7 C] (07/07/2024 16:59) Pulse: 86 (07/07/2024 16:59) Respiratory Rate: 16 (07/07/2024 16:59) Blood Pressure: 116/64 (07/07/2024 16:59) Oxygen Saturation: 96% (07/07/2024 16:59) Delivery of Oxygen: PAIN LEVEL: 4 (07/07/2024 16:59) MOST RECENT LABS: POTASSIUM 3.7 (07/07/24) MAGNESIUM 1.9 (07/07/24) CREATININE 0.9 (07/07/24) HGB 15.9 (07/07/24) WBC 21.2 H (07/07/24) SODIUM 136 (07/07/24) MENTAL/NEUROLOGICAL STATUS: A&Ox4, able to make needs known sensations intact,singer, good strengths equal bilaterally, perrl. CARDIOVASCULAR: Hr 80's - no edema noted. PULMONARY: Room air. Sats mid/upper 90's Denies SOB. Lung sounds clear with diminished bases GASTROINTESTINAL: BS+x4, flatus+, Abdomen soft, appropriately tender. Denied 1700 methocarbamol. RLQ ileosotomy stoma beefy red with green liquid output noted (450ml this tour). GENITOURINARY: Voiding per toilet and urinal without issue INCISION/DRESSING: Abdominal midline incision C/d/I per silverlon - changed on day tour d/t pouch change. JUAN drain to LLQ with serosanguinous drainage, scant output (Not emptied) ACCESS: x 1 PIV to left lower FA- IV zosyn given per orders ACTIVITY: Moving around room independently without issue /es/ YONATHAN BRASHER, SYSTEM SUPPORT ADMINISTRATOR NURSE Signed: 07/07/2024 20:03 ZACKARY JOSE [facility] Jul 07, 2024 02:08 AM NURSING INPATIENT NOTE: LOCAL TITLE: [facility] NURSING PROGRESS NOTE STANDARD TITLE: NURSING INPATIENT NOTE DATE OF NOTE: JUL 07, 2024@02:08 ENTRY DATE: JUL 07, 2024@02:08:45 AUTHOR: ALIA PINTO EXP COSIGNER: URGENCY: STATUS: COMPLETED Nursing Shift Note Nursing care provided from [phone] Highlights from shift: [place] in bed at start of shift. reports pain 6/10. scheduled pain medication administered. VSS. Bowel sounds active in all quadrants. Lungs clear, diminished in bases. pulses palpable. no edema noted. JUAN to LLQ 10ml emptied, red/bloody output. Drainage coming from insertion site of JUAN. Gauze replaced 2x this shift. Independent with ileostomy cares of RLQ. Full bed change required due to leakage of ileostomy bag. expressed frustration and said, I can't be doing this at home. expresses no appetite at this time but has been tolerating ajith lang and milk well. a&ox4. able to make needs known. call light in reach. See ICCA for detailed assessment, Education provided on medication/cares this shift as needed Assessment Type: SKIN REINSPECTION/REASSESSMENT SKIN INSPECTION: Skin Color: Usual for ethnicity Skin Temperature: Warm Skin Moisture: Normal Skin Turgor: Elastic (normal/immediate) Clotilde Skin Assessment: The patient's Clotilde Scale Score is 21. The patient is considered not at risk [...] not have any additional risk factors. SKIN ALTERATIONS: Wound Documentation from the past year: Skin Assessment 07/06/2024 Skin Integrity - Wound 07/05/2024 Skin Integrity - Wound 07/05/2024 Skin Integrity - Wound 07/04/2024 Skin Integrity - Wound 07/03/2024 Skin Integrity - Wound abdomen incision with silerlon dressing, shadow drainage. 06/25/2024 Skin Integrity - Wound 06/24/2024 Skin Integrity - Wound low abdominal JUAN site - cdi 06/24/2024 Skin Integrity - Wound LLQ JUAN site, CDI. 06/23/2024 Skin Integrity - Wound -LLQ: JUAN drain; stay fix dressing is CDI, tubing securment device applied. Wound - other than pressure ulcer/injury (includes open surgical wounds/incisions): Location: abdominal incision with silverlon in plcae, cdi No Edema Wound drainage none. Skin Interventions performed this shift: Patient turned [id number] or as appropriate while in bed. /alexi/ ALIA CHRISTIANSON, RN Signed: 07/07/2024 07:21 ALIA PINTO [facility] Jul 06, 2024 04:27 PM NURSING INPATIENT NOTE: LOCAL TITLE: [facility] NURSING PROGRESS NOTE STANDARD TITLE: NURSING INPATIENT NOTE DATE OF NOTE: JUL 06, 2024@16:27 ENTRY DATE: JUL 06, 2024@16:27:59 AUTHOR: YONATHAN BRASHER COSIGNER: URGENCY: STATUS: COMPLETED Nursing Shift Note Operative Procedure(s) laproscopic converted to open sigmoid colectomy, splenic flexure mobilization, diverting loop ileostomy, flexable sigmoidoscopy POD# 3 Admitting Diagnosis: DIVERTICULITIS Temperature: 97 F [36.1 C] (07/06/2024 09:11) Pulse: 93 (07/06/2024 09:11) Respiratory Rate: 18 (07/06/2024 09:11) Blood Pressure: 136/88 (07/06/2024 12:18) Oxygen Saturation: 96% (07/06/2024 09:11) Delivery of Oxygen: Room Air PAIN LEVEL: 5 (07/06/2024 12:09) MOST RECENT LABS: POTASSIUM 3.4 L (07/06/24) MAGNESIUM 1.9 (07/06/24) CREATININE 0.7 (07/06/24) HGB 14.6 (07/06/24) WBC 18.0 H (07/06/24) SODIUM 138 (07/06/24) Nursing care provided from [phone] Highlights from shift: Alert and oriented x 4. CMS+. Dp/PT palpable, no edema noted. Lung sounds clear with diminsined bases, remain on room air with sats mid 90's. Abdomen soft, appropriately tender, bowel sounds present x 4 quadrants, RLQ ostomy with green stool output, pt emptying ostomy independent, stoma beefy red/healthy. JUAN present to LLQ as well with serosanguinout output noted (80 ml). Pt does report intermittent nausea requiring PRN zofran x2 this tour., consuming about 30-50% of breakfast (doesn't like diet options), pt did not eat dinner as he states it doesn't smell good, development writer removed tray to prevent emesis. Voiding per toilet without issue. Abdominal midline incision C/D/i per lorelei. LFA PIV patent. See ICCA for detailed assessment Assessment Type: SKIN REINSPECTION/REASSESSMENT SKIN INSPECTION: Skin Color: Usual for ethnicity Skin Temperature: Warm Skin Moisture: Normal Skin Turgor: Elastic (normal/immediate) Clotilde Skin Assessment: The patient's Clotilde Scale Score is 19. The patient is [...] any additional risk factors. SKIN INTEGRITY: Intact Incision and Flaps: Incision 1: Location: Abdominal midline incision C/D/I per silverlon Wound drainage none. OSTOMY: GASTROINTESTINAL: Type: Location(s): RLQ Ileostomy Stoma: New Stoma Description: Round Beefy red Moist Surrounding tissue: Usual for ethnicity Intact Ostomy Management: Pouch changed Independent Skin Interventions performed this shift: Device(s) removed and skin underneath was inspected. Head of Bed kept below 30 degrees unless otherwise ordered. /alexi/ YONATHAN BRASHER RN STAFF NURSE Signed: 07/06/2024 19:26 YONATHAN BRASHER [facility] Jul 06, 2024 03:20 PM WOUND CARE NOTE: LOCAL TITLE: WOC NURSE F/U NOTE STANDARD TITLE: WOUND CARE NOTE DATE OF NOTE: JUL 06, 2024@15:20 ENTRY DATE: JUL 06, 2024@15:20:44 AUTHOR: MARTI LAYTON COSIGNER: URGENCY: STATUS: COMPLETED WOUND OSTOMY CONTINENCE ([facility]) NURSING ASSESSMENT: REASON FOR CONSULT: new DLI teaching ADMISSION DATE: 07/03/24 Per CR note: 74yoM with h/o CAD, HLD, HTN, CKD, [...] recovering appropriately. leukocytosis is down-trending (18 from 20). hemoglobin is stable at 14. tolerating fulls without emesis and only minimal nausea. Adequate urine output after tracey removed (1.1 cc/kg/hr since midnight). Cr 0.7. POD#3- pt is recovering appropriately. leukocytosis is down-trending (18 from 18.3, from 20). hemoglobin is stable at 14.1. Tolerating regular diet with some nausea. Adequate urine output (1100ml/24h). Cr 0.7. VERBAL CONSENT OBTAINED FOR PHOTOS, PLEASE SEE [employer] FOR PHOTOS ASSESSMENT: Vet and present for teaching, retained much of the information from yesterday, providing teach back to . Cut his own barrier. Sat for pouch application, assisted with pulling up belly and flattening out rounded medial abdomen area for pouching bulging topography. Has been emptying his own pouch on his own. -Ileostomy booklet provided, did not want to go through it with development writer, left in room for review FOCAL SKIN INSPECTION ASSESSMENT -L side abdominal drain present, anchored with suture, small serosanguineous fluid in bulb -lap sites intact per glue, SEMICONDUCTORS WAFER BREAKER -midline incision Silvalon dressing intact Pouch education: actively listenened and verablized understanding of pouching. Performed manual skills of cutting hole for barrier and snapping pouch together, able to close with lock and roll. Discussed shaving the peristomal skin as it grows out. Potential barriers--stoma difficult to see, likely will need convexity due to peristomal topography and flush stoma. Discussed two lumens. Discussed measuring stoma each pouch change with goal time of pouch changes every 3 days. Discussed stoma maturation will likely change the size of stoma. Discussed DLI and implications regarding possibility of rectal bowel movements/mucus. [place] agrees to begin practicing emptying his pouch into toilet or graduate container, discussed cleaning off the end of the pouch with toilet paper, paper towel, or moist cloth. Demonstrated opening the pouch and closing the pouch well. Discussed that pouch can be worn in the shower, tape will need to dry. 2 spare 2 pc pouches at bedside for ileostomy. Pharmacy has the red system 2 pc pouches available, but connecting barriers are not available to be at window or mailed out until Tuesday or Tuesday next week. Use jung stock pouches if needed over the weekend, send spare ones home at [place]j. OSTOMY ASSESSMENT STOMA TYPE & LOCATION: DLI, RLQ COLOR: beefy red MOISTURE: moist EDEMA: present, particularly on medial aspect SIZE: 1-1/8 when rounded out, oval at rest LUMEN: stool lumen on superior aspect, afferent lumen inferior MUCOCUTANOUS JUNCTION: intact, post surgical POD3, soft yellow sutures, divoted area 6-12 olock PROTRUSION: 2 cm FUNCTION: green bilious stool PERISTOMAL HERNIA: none, soft rounded infraumbilical bulge ABDOMEN: soft, redundant saggy peristomal skin PERISTOMAL SKIN: intact NUTRITION: improving LOWER EXTREMITY ASSESSMENT: EDEMA: none PULSES: did not assess SKIN TEXTURE/STAINING: none PRESSURE INJURY RISK ASSESSMENT: Score 15-18 Mild Risk NUTRITION: adequate BOWEL/BLADDER STATUS: continent per urinal, DLI DEVICES: IV, JUAN LLQ MATTRESS/BED: Standard hospital mattress -- Custom Care is appropriate SITTING SURFACES: Recommend using a Curve Cushion when out of bed on bedside chair and w/c WOUND TREATMENT/INTERVENTIONS/PLAN OF CARE: -routine hygiene cares -ABD dressing and JUAN cares per surgical team -ileostomy pouch changes MWF by WOC, PRN by nursing staff (WOC not available [place]'s Day) ACTIVITY ORDERS/RECOMMENDATIONS: no restrictions related to wound care at this time ILEOSTOMY CARES: to empty with supervision into toilet or graduated cylinder. WOC to change/educate MWF on pouching. Nursing to change pouch PRN for leaking. Please use jung stock pouch measured at 1-1/8 cutout if needed. Spare cut-to-fit 2 pc at bedside. See Outpatient Med List for pouching supplies. ILEOSTOMY POUCH CHANGE - Empty pouch -Carefully remove the pouch with push-pull method, using adhesive remover if necessary -Gently wash the skin around the stoma with warm water/gauze or clean washcloth -Measure the stoma with the measuring guide -Cut the barrier to the correct size and double check -Remove the backing on pouch, dog ear the paper strips for ease of removal -Place the pouch at the angle you desire, no more than 1/8 of skin should be visible through pouch -Place hand over barrier to warm it to abdomen -Remove the two white tape borders and press in place -Ensure pouch is properly closed (lock n roll velcro or clamp) -Empty pouch when 1/3 - 1/2 full Extra Supplies: IF the skin around the stoma gets irritated then add the following steps after the skin is washed: -Sprinkle stomahesive powder on the irritated skin -Gently dust it off with a tissue -Using a Cavilon No Sting Barrier film, DAB it over the areas where the powder is (do not wipe it back and forth), this will allow the pouch adhesive to stick to the irritated skin -Repeat this one more time to make a crust layer -Pouch the stoma PRESSURE INJURY PREVENTION: ordered for 2K 1) Daily skin inspection 2) Repositioning in Bed Q2 Hours a) As appropriate to prevent pressure to bony prominences. 3) Elevate heels off a) Using pillows or boots 4) Head of Bed<30 degrees (EXCEPT VAD protector or tube feeds) 5) Sitting Precautions a) Encourage pressure relief to bony prominences and use of cushions as appropriate. b)Curve Cushion for WC 6) Mobility a) Encourage safe ambulation with appropriate assistive devices 7) Moisture management a) Keep skin clean and dry using skin barrier for protection and ultrasorb chux for absorption. Use containment devices as needed. 8) Device safety: (oxygen tubing, other respiratory devices, c-collars, TLSO braces, splints, JIMMIE wraps, etc. a) Inspect skin under ALL devices every shift 9) Patient education a) Provide patient/family education related to pressure ulcer prevention. COCCYX/SACRUM/BUTTOCKS PREVENTION ORDERS: - SACRAL MEPILEX for protection, apply and conform into crease -Change DAILY and PRN if soiled or unsalvageable - Position change q2h - CURVE CUSHION for chair when OOB, limit chair sitting to 2 hours - Pericares: BID and PRN - Remedy Prevent Barrier cream if incontinent - Remedy Protect zinc paste for liquid stool - Avoid briefs in bed, trial alt methods to contain urine or stool (condom catheter, penis pouch, Qivi system, scheduled toileting) HEEL PROTECTION: - HEEL MEPILEX for protection: date, check skin underneath every day during skin assessment. - Change Mepilex DAILY PRN if soiled or unsalvageable. GOALS: - independent pouch emptying - maintain skin integrity, incision healing NEXT STEPS: - continue 2pc system - discuss crusting, offsetting cut out hole, and use of barrier seal if needed - continue with diligent offloading of bony prominences EDUCATION: - Pressure Injury Relief - Diabetic Foot Education DISCHARGE PLANNING -recommend home care -WOC triage number provided to Vet (business hours) [phone], opt 6 SUPPLIES: - pouching system: D8A Group 2 pc, New Image, Red System convex cut to fit barrier [id number] lock and roll drainable pouch with filter [id number] - skin barrier film - Shady ring - powder - gauze - adhesive remover FOLLOW UP: WOC will continue to follow daily for teaching this week, WOC out of office on weekends and federal holidays. WOC will place RTC appt or cotreat at 6 wk f/u visit in CR clinic upon dc. /alexi/ EARLENE PATHAK, RN, CWOCN Certified Wound, Ostomy, Continence Nurse Signed: 07/06/2024 15:34 MARTI LAYTON [facility] Jul 06, 2024 11:00 AM NUTRITION CONSULT: LOCAL TITLE: NUTRITION INPT CONSULT STANDARD TITLE: NUTRITION CONSULT DATE OF NOTE: JUL 06, 2024@11:00 ENTRY DATE: JUL 06, 2024@11:01:11 AUTHOR: LINA SUBRAMANIAN EXP COSIGNER: URGENCY: STATUS: COMPLETED NUTRITION ASSESSMENT Delivery method: In person Visit type: Initial Reason for visit: Nutrition consult for 'requesting bland food/declining most food' Time of visit: ~9:45am ASSESSMENT: 73 year old with h/o CHF, HTN, CKD and known diverticulitis c/b colovesicular fistula s/p open sigmoid colectomy, splenic flexure mobilization, diverting loop ileostomy, flex sig with bilateral ureteral stent placement 07/03. Reports poor appetite 2/2 intermittent nausea (receiving anti-emetics prn). Only ate 50% of eggs at breakfast. Consumed <50% of full liquid diet yesterday. 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 Requesting bland/low fiber foods (knows what he can tolerate due to previous diverticulitis) for next 1-2 days at which point he feels his symptoms and intake will improve Estimated nutrient intake: ~500 kcals, ~15-20 grams protein Comparative standards (based on adjusted body weight of 80 kg) Calories: 4056-9465 kcals/day (based on 30-35 kcals/kg) Protein: 96-120 g/day (based on 1.2-1.5 g/kg) Fluid: 6485-1651 mls/day (1 ml/kcal) Diet order: MS HEALTHY Malnutrition assessment (per AND/ASPEN Consensus Statement, 2012): Dietitian does not suspect malnutrition at this time, therefore, physical assessment not conducted DIAGNOSIS Problem: Inadequate protein-energy intake Etiology: intermittent nausea Signs/symptoms: intake meeting 25% of kcal and protein needs INTERVENTION: Nutrition prescription: MS Healthy Manage composition of oral intake: Food preferences obtained and updated in nutrition software. Assisted with filling out select menu for 07/06. Provided list of alternative meal options Goal: Intake to improve to >50% of meals Texture modified diet: Encouraged vet to fill out select menus/self-select lower fiber/bland foods as desired Goal: Report selecting lower fiber foods by f/u MONITORING & EVALUATION: Total estimated energy and protein intake per 24 hrs (>50% of nutrient needs by f/u) Follow up: 5-7 days if still inpatient /alexi/ LINA SUBRAMANIAN REGISTERED DIETITIAN Signed: 07/06/2024 11:17 LINA SUBRAMANIAN [facility] Jul 06, 2024 10:40 AM PATHOLOGY REPORT: LOCAL TITLE: SURGICAL PATHOLOGY REPORT STANDARD TITLE: PATHOLOGY REPORT DATE OF NOTE: JUL 06, 2024@10:40:48 ENTRY DATE: JUL 06, 2024@10:40:48 AUTHOR: EDUARDO PALOMARES EXP COSIGNER: URGENCY: STATUS: COMPLETED $APHDR Reporting Lab: [facility] [CLIA# [id number]] [place] [address] - - - - - - - [...] - PATHOLOGY REPORT Accession No. [id number] - - - - - - - - - - - - - - - - - - - - - - - - - - - - - - - - - - - - - - - - $TEXT Submitted by: WENCESLAO POON Date obtained: Jul 03, 2024 - - [...] - - POSTOPERATIVE DIAGNOSIS: Diverticulitis Surgeon/physician: WENCESLAO POON MD Attending Surgeon: Wenceslao Poon MD =-=-=-=-=-=-=-=-=-=-=-=-=-=-= -=-=-=-=-=-=-=-=-=-=-=-=-=-=- =-=-=-=-=-=-=-=-=-=-= - - - - - - - - - - - - - - - - - - - - - - - - - - - - - - - - - - - - - - - - PATHOLOGY REPORT Accession No. [id number] - - - - - - - [...] Second circumferential surgical margin, en face; E-F: Client Solutions Director diverticula; G: Client Solutions Director section of mesentery; H: Random chain sales representative section of additional adipose tissue [...] colonic tissue ring, bisected transversely. [facility]. [facility]: Microscopic examination performed. DIAGNOSIS: 1. Colon, sigmoid, sigmoidectomy-- - Diverticulosis with perforation and focal abscess formation 2. Colon, anastomotic rings, excision-- - Viable colonic mucosa without diagnostic abnormality /alexi/ EDUARDO PALOMARES MD STAFF PATHOLOGIST Signed Jul 06, 2024@10:40 Performing Laboratory: Surgical Pathology Report Performed By: [facility] [CLIA# [id number]] [place] [address] $FTR - - - - - - [...] - - FLACA WEAVER STANDARD FORM 515 ID:[id number] SEX:M :1950 AGE: 73 LOC:[id number] ADM:Jun DX:DIVERTICULITIS PCP: Prema Benitez /alexi/ EDUARDO PALOMARES MD STAFF PATHOLOGIST Signed: 07/06/2024 10:40 EDUARDO PALOMARES [facility] Jul 06, 2024 01:31 AM NURSING INPATIENT NOTE: LOCAL TITLE: BULMARO NURSING PROGRESS NOTE STANDARD TITLE: NURSING INPATIENT NOTE DATE OF NOTE: JUL 06, 2024@01:31 ENTRY DATE: JUL 06, 2024@01:31:05 AUTHOR: UBALDO TAM EXP COSIGNER: URGENCY: STATUS: COMPLETED Admitting Diagnosis: DIVERTICULITIS Blood Pressure: 147/88 (07/05/2024 16:51) Pulse: 97 (07/05/2024 16:51) Temperature: 98.5 F [36.9 C] (07/05/2024 16:51) Respiratory Rate: 16 (07/05/2024 16:51) Oxygen Saturation: 95% (07/05/2024 16:51) Delivery of Oxygen: Room Air Lung Sounds: Bilaterally clear Cough: Secretions: Labs: TROPONIN - NONE FOUND POTASSIUM 3.8 (07/05/24) WBC 18.3 H (07/05/24) HGB 14.1 (07/05/24) Rhythm: Nursing Shift Note Assessment performed at: Jun Focused assessment/pertinent notes from shift: Education provided on medication/cares this shift as needed. A&O x4, and, denies CP/SOB, on RA, RR wnl, VSS, afebrile. PRN Zofran given for nausea, and IV dilaudid for pain once this tour. Passing gas and ileostomy draining large amount of green liquid drainage, pt. independently emptying it in the BR, reported x3 this tour. 80cc bloody drainage from JUAN. PIV intact, IV abx given. Able to make needs known. Please see ICCA/BCMA for more. SAFETY Safety interventions this shift: Call light within reach Side rails up x 2 Bed in lowest position SKIN Skin Interventions performed this shift: Patient turned [id number] or as appropriate while in bed. Patient's heels elevated with pressure relief boots or pillows under calves. Patient kept clean and dry with barrier cream applied as ordered. EDUCATION READINESS TO LEARN Pain IDENTIFIED LEARNING NEEDS/TOPIC Medication PARTICIPANTS: Patient TEACHING STRATEGY: 1:1 OBJECTIVES: Pt. will report nausea PATIENT/FAMILY RESPONSE (OUTCOME): Verbalizes critical information about the topic FOLLOW-UP RECOMMENDED: None needed /es/ UBALDO TAM RN REGISTERED NURSE Signed: 07/06/2024 07:36 UBALDO TAM [facility] Jul 05, 2024 11:42 PM NURSING NOTE: LOCAL TITLE: VAAES NSG IV INSERTION AND MAINTENANCE STANDARD TITLE: NURSING NOTE DATE OF NOTE: JUL 05, 2024@23:42 ENTRY DATE: JUL 05, 2024@23:42:19 AUTHOR: OSORIO FRANKEL EXP COSIGNER: URGENCY: STATUS: COMPLETED Version 2.2 Charting in accordance with MS APPROVED [place] STANDARD (MSAES) ACUTE INPATIENT/REHABILITATION NURSING ADMISSION SCREENING, ASSESSMENT, AND STANDARDS OF CARE ====== IV Line Insertion and Maintenance ====== ====== Peripheral IV ====== Line #1: Insertion: Date/Time: Jun@23:30 Inserted by (name): development writer Insertion Aid: Ultrasound guided Location: Left, Forearm Gauge: 20 x 1.75 Dressing Condition: Clean, dry, intact Transparent dressing Site Condition: No redness, swelling, pain Line Status: Capped Flushed 10 mL NS Positive blood return /es/ Osorio Frankel LPN LPN [facility] [place] Signed: 07/05/2024 23:43 OSORIO FRANKEL [facility] Jul 05, 2024 03:07 PM NURSING INPATIENT NOTE: LOCAL TITLE: BULMARO NURSING PROGRESS NOTE STANDARD TITLE: NURSING INPATIENT NOTE DATE OF NOTE: JUL 05, 2024@15:07 ENTRY DATE: JUL 05, 2024@15:07:22 AUTHOR: MARTI LEE COSIGNER: URGENCY: STATUS: COMPLETED BULMARO NURSING PROGRESS NOTE Has ADDENDA Nursing Shift Note Nursing care provided from [id number] Highlights from shift: Telemetry, continuous O2 sats, and CANE WEIGHER HELPER discontinued at 1400 per orders. Pain managed per PO pain medications this evening. Primary concern of pt is nausea with limited relief from zofran. SOD notified. [place] changed this shift due to soiled dressing. See below for details. Large episode of ileostomy leaking this morning. Changed per WOCN. Scant amount of dark green liquid output since. Pt with poor dietary intake, declined most food. Obgyn Hospitalist Physician consult ordered by development writer. JUAN draining sanguineous drainge. 20 mL out this shift. Blood Pressure: 157/71 (07/05/2024 13:00) Heart Rate: 57 (07/05/2024 13:00) Respirations: 16 (07/05/2024 13:00) Temperature: 98.7 F [37.1 C] (07/05/2024 13:00) Pain: 7 (07/05/2024 14:41) Pulse Oximetry: 95% (07/05/2024 13:00) FINGERSTICK GLUCOSE 126 H (07/03/24) Recent Labs: PT 13.9 H (06/21/24) INR 1.2 H PLASMA (06/21/24 17:24) POTASSIUM 3.8 (07/05/24) SODIUM 135 L (07/05/24) MAGNESIUM 2.0 (07/05/24) WBC 18.3 H (07/05/24) HGB 14.1 (07/05/24) HCT 43.4 (07/05/24) CREATININE 0.7 (07/05/24) See ICCA for detailed assessment, Education provided on medication/cares this shift as needed Assessment Type: SKIN REINSPECTION/REASSESSMENT SKIN INSPECTION: Skin Color: Usual for ethnicity Skin Temperature: Warm Skin Moisture: Normal Skin Turgor: Elastic (normal/immediate) Clotilde Skin Assessment: The patient's Clotilde Scale Score is 16. The patient is at mild risk for development of pressure ulcer/injury. Sensory perception -- ability to respond meaningfully to pressure-related discomfort Slightly limited. Moisture -- degree to which skin is exposed to moisture Occasionally moist. Activity -- ability to change and control body position Walks occasionally. Mobility -- ability to change and control body position Slightly limited. Nutrition -- usual food intake patterns Probably inadequate. Friction and shear Potential problem. INTERVENTIONS: No change in previous interventions as listed below Vaaes Pressure Injury Interventions 07/05/2024 Vaaes Pressure Injury Int Not Needed RISK FACTORS THAT INCREASE RISK FOR DEVELOPING PRESSURE INJURIES: The patient/resident has the following: Device(s): (nasogastric tubes, oxygen tubing, urinary catheters, cell phone etc.) Comment: ileostomy Wound - other than pressure ulcer/injury (includes open surgical wounds/incisions): Midline incision - Dressing changed this shift due to soiling with ileostomy leak. Silverlon applied after cleansing with wound cleanser and 4x4 gauze. JUAN drain - draining sanguineous fluid. Insertion site is clean, dry, and healing. No erythema noted. Sutures intact. Skin Interventions performed this shift: Patient turned [id number] or as appropriate while in bed. Patient's heels elevated with pressure relief boots or pillows under calves. Patient kept clean and dry with barrier cream applied as ordered. Device(s) removed and skin underneath was inspected. Head of Bed kept below 30 degrees unless otherwise ordered. /alexi/ MARTI LEE RN Registered Nurse Signed: 07/05/2024 20:10 07/05/2024 ADDENDUM STATUS: COMPLETED Cares from 1930-midnight Admitting Diagnosis: DIVERTICULITIS Blood Pressure: 147/88 (07/05/2024 16:51) Pulse: 97 (07/05/2024 16:51) Temperature: 98.5 F [36.9 C] (07/05/2024 16:51) Respiratory Rate: 16 (07/05/2024 16:51) Oxygen Saturation: 95% (07/05/2024 16:51) Delivery of Oxygen: Room Air Labs: TROPONIN - NONE FOUND POTASSIUM 3.8 (07/05/24) WBC 18.3 H (07/05/24) HGB 14.1 (07/05/24) Rhythm: SR JUAN output, thin serosang, with one clot, 30ml Nausea improved with prochlorperazine. Emptied ileostomy bag, full himself once this evening. Split gauze replaced. Independent to toilet. OOB to toilet independently. 1999 BP 142/99 HR 113 Temp 98.3 96% on RA pain 03/07 /alexi/ MASOOD BLACK, RN REGISTERED NURSE Signed: 07/06/2024 00:11 MARTI LEE [facility] Jul 05, 2024 12:20 PM WOUND CARE NOTE: LOCAL TITLE: WOC NURSE F/U NOTE STANDARD TITLE: WOUND CARE NOTE DATE OF NOTE: JUL 05, 2024@12:20 ENTRY DATE: JUL 05, 2024@12:20:25 AUTHOR: MARTI LAYTON EXP COSIGNER: URGENCY: STATUS: COMPLETED WOUND OSTOMY CONTINENCE (WOC) NURSING ASSESSMENT: REASON FOR CONSULT: new DLI teaching ADMISSION DATE: 07/03/24 Per CR note: 74yoM with h/o CAD, HLD, HTN, CKD, [...] recovering appropriately. leukocytosis is down-trending (18 from 20). hemoglobin is stable at 14. tolerating fulls without emesis and only minimal nausea. Adequate urine output after tracey removed (1.1 cc/kg/hr since midnight). Cr 0.7. PROBLEM LIST: Active problems - Computerized Problem List is [...] . No additional CRC surveillance recommended by financial analysis consultant. 9. Decreased vitamin D - 02.24.2017 [...] - By 02.13.[address] 03.14.2020 OSH(ED [place], [place]): Pt. Declined Admission. 03.14.2020 CT with Mild Sigmoid diverticulitis. 04.23.2020 ED([facility]): Declined admission. 17. 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 18. Ex-tobacco user 19. Impaired Fasting Glucose (SCT [id number]) - 02.26.2014 A1c 5.8%. 20. Adrenal mass [...] 24. Hiatal hernia 25. Shoulder Pain (SCT [id number]) 26. Trigger finger 27. [facility] Primary: Dr. Cathi Simeon, [facility] and [facility] [place], [place] [address]. WOUND HISTORY: initial education session this admission VERBAL CONSENT OBTAINED FOR PHOTOS, PLEASE SEE [facility]IST[facility] FOR PHOTOS ASSESSMENT: Vet reports a leaking pouch, had it replaced or emptied (he was not sure which) this AM. Upon assessment, pouch barrier is holding, though tape borders remain unsecured with paper backing in place. Vet stood in bathroom in front of mirror with development writer to learn about pouching. FOCAL SKIN INSPECTION ASSESSMENT -PIP in place to heels and sacrum -L side abdominal drain present, anchored with suture, small serosanguineous fluid in bulb -lap sites intact per glue, CHANI -midline incision intact per stapes, some scant serous drainage from umbilicus, Silvalon dressing changed Pouch education: actively listenened and verablized understanding of pouching. Performed manual skills of bag closure with lock and roll (close like a scorpion tail) and demonstrated connecting the barrier to the pouch. Visualized stoma, educated on cleaning and showering. Discussed shaving the peristomal skin as it grows out. Potential barriers--stoma difficult to see, likely will need convexity due to peristomal topography and flush stoma. Discussed two lumens. Discussed measuring stoma each pouch change with goal time of pouch changes every 3 days. Discussed stoma maturation will likely change the size of stoma. Discussed DLI and implications regarding possibility of rectal bowel movements/mucus. agrees to begin practicing emptying his pouch into toilet or graduate container, discussed cleaning off the end of the pouch with toilet paper, paper towel, or moist cloth. Demonstrated opening the pouch and closing the pouch well. Discussed that silvalon dressing is waterproof, can be showered in. Discussed that pouch can be worn in the shower, tape will need to dry. Spare 2 pc pouch at bedside. OSTOMY ASSESSMENT STOMA TYPE & LOCATION: DLI, RLQ COLOR: beefy red MOISTURE: moist EDEMA: present, particularly on medial aspect SIZE: 1-1/8 when rounded out, oval at rest LUMEN: stool lumen on superior aspect, afferent lumen inferior MUCOCUTANOUS JUNCTION: intact, post surgical POD2, soft yellow sutures, divoted area 6-12 olock PROTRUSION: 2 cm FUNCTION: green bilious stool PERISTOMAL HERNIA: none, soft rounded infraumbilical bulge ABDOMEN: soft, redundant saggy peristomal skin PERISTOMAL SKIN: intact NUTRITION: improving LOWER EXTREMITY ASSESSMENT: EDEMA: none PULSES: did not assess SKIN TEXTURE/STAINING: none LABS: ALBUMIN 3.7 (06/23/24) WBC 18.3 H (07/05/24) PRESSURE INJURY RISK ASSESSMENT: Score 15-18 Mild Risk NUTRITION: adequate BOWEL/BLADDER STATUS: continent per urinal, DLI DEVICES: IV MATTRESS/BED: Standard hospital mattress -- Custom Care is appropriate SITTING SURFACES: Recommend using a Curve Cushion when out of bed on bedside chair and w/c WOUND TREATMENT/INTERVENTIONS/PLAN OF CARE: -routine hygiene cares -ABD dressing and JUAN cares per surgical team -ileostomy pouch changes MWF by WOC, PRN by nursing staff ACTIVITY ORDERS/RECOMMENDATIONS: no restrictions related to wound care at this time ILEOSTOMY CARES: to empty with supervision into toilet or graduated cylinder. WOC to change/educate MWF on pouching. Nursing to change pouch PRN for leaking. Please use jung stock pouch measured at 1-1/8 cutout if needed. Spare cut-to-fit 2 pc at bedside. See Outpatient Med List for pouching supplies. ILEOSTOMY POUCH CHANGE - Empty pouch -Carefully remove the pouch with push-pull method, using adhesive remover if necessary -Gently wash the skin around the stoma with warm water/gauze or clean washcloth -Measure the stoma with the measuring guide -Cut the barrier to the correct size and double check -Remove the backing on pouch, dog ear the paper strips for ease of removal -Place the pouch at the angle you desire, no more than 1/8 of skin should be visible through pouch -Place hand over barrier to warm it to abdomen -Remove the two white tape borders and press in place -Ensure pouch is properly closed (lock n roll velcro or clamp) -Empty pouch when 1/3 - 1/2 full Extra Supplies: IF the skin around the stoma gets irritated then add the following steps after the skin is washed: -Sprinkle stomahesive powder on the irritated skin -Gently dust it off with a tissue -Using a [employer] No Sting Barrier film, DAB it over the areas where the powder is (do not wipe it back and forth), this will allow the pouch adhesive to stick to the irritated skin -Repeat this one more time to make a crust layer -Pouch the stoma PRESSURE INJURY PREVENTION: ordered for 2K 1) Daily skin inspection 2) Repositioning in Bed Q2 Hours a) As appropriate to prevent pressure to bony prominences. 3) Elevate heels off a) Using pillows or boots 4) Head of Bed<30 degrees (EXCEPT VAD protector or tube feeds) 5) Sitting Precautions a) Encourage pressure relief to bony prominences and use of cushions as appropriate. b)Curve Cushion for WC 6) Mobility a) Encourage safe ambulation with appropriate assistive devices 7) Moisture management a) Keep skin clean and dry using skin barrier for protection and ultrasorb chux for absorption. Use containment devices as needed. 8) Device safety: (oxygen tubing, other respiratory devices, c-collars, TLSO braces, splints, JIMMIE wraps, etc. a) Inspect skin under ALL devices every shift 9) Patient education a) Provide patient/family education related to pressure ulcer prevention. COCCYX/SACRUM/BUTTOCKS PREVENTION ORDERS: - SACRAL MEPILEX for protection, apply and conform into crease -Change DAILY and PRN if soiled or unsalvageable - Position change q2h - CURVE CUSHION for chair when OOB, limit chair sitting to 2 hours - Pericares: BID and PRN - Remedy Prevent Barrier cream if incontinent - Remedy Protect zinc paste for liquid stool - Avoid briefs in bed, trial alt methods to contain urine or stool (condom catheter, penis pouch, Qivi system, scheduled toileting) HEEL PROTECTION: - HEEL MEPILEX for protection: date, check skin underneath every day during skin assessment. - Change Mepilex DAILY PRN if soiled or unsalvageable. GOALS: - independent pouch emptying - maintain skin integrity, incision healing NEXT STEPS: - continue 2pc system: WOC will bring convex barrier to next session, precut when stoma matures - discuss crusting, offsetting cut out hole, and use of barrier seal if needed - continue with diligent offloading of bony prominences EDUCATION: - Pressure Injury Relief - Diabetic Foot Education DISCHARGE PLANNING - may require home care assistance for ongoing ostomy teaching and assistance if dc'ing over weekend or 's Day SUPPLIES: - pouching system: D8A Group 2 pc, New Image, Red System convex cut to fit barrier [id number] lock and roll drainable pouch with filter H#[id number] - skin barrier film - Shady ring - powder - gauze - adhesive remover FOLLOW UP: WOC will continue to follow daily for teaching this week, WOC out of office on weekends and federal holidays. WOC will place RTC appt or cotreat at 6 wk f/u visit in CR clinic upon dc. /es/ EARLENE PATHAK, RN, CWOCN Certified Wound, Ostomy, Continence Nurse Signed: 07/05/2024 13:09 MARTI LAYTON [facility] Jul 05, 2024 11:48 AM COLON & RECTAL SURGERY NOTE: LOCAL TITLE: COLON-RECTAL INPT PROGRESS NOTE STANDARD TITLE: COLON & RECTAL SURGERY NOTE DATE OF NOTE: JUL 05, 2024@11:48 ENTRY DATE: JUL 05, 2024@11:48:59 AUTHOR: AYLA MAYEN COSIGNER: URGENCY: STATUS: COMPLETED INPATIENT PROGRESS NOTE Subjective: Did not work with WOCN yesterday because he can google everything but willing to work with them today. Did not get out of bed yesterday but was sitting in chair this morning. tolerating diet but decreased appetite, only minimal nausea but no emesis. Pain is controlled with CANE WEIGHER HELPER. Objective: A&O, NAD NLB on RA RRR by peripheral pulse Abd is distended but compressible, minimally TTP, no guarding, no rigidity, no signs of peritonitis - incisions are c/d/i - ostomy: dark green liquid slightly thickened output in bag - JUAN drain with s/s output Ext wwp CN II-XII grossly intact, no focal deficits Active Medications: Active Inpatient Medications (including Supplies): Active Inpatient Medications Status 1) ACETAMINOPHEN (INPT) TAB 1000MG PO Q8H ACTIVE 2) ATORVASTATIN TAB 20MG PO QHS ACTIVE 3) EMPAGLIFLOZIN TAB,ORAL 12.5MG PO QDAY ACTIVE 4) ENOXAPARIN INJ 40MG/0.4ML SQ QNOON Prophylactic ACTIVE protocol *give only in abdomen 5) FUROSEMIDE TAB 20MG PO QDAY ACTIVE 6) HYDROCHLOROTHIAZIDE/LISINOPRI L TAB 1 TABLET PO QDAY ACTIVE 7) ISOSORBIDE MONONITRATE TAB,SA 30MG PO QDAY ACTIVE 8) METHOCARBAMOL TAB 500MG PO Q4H ACTIVE 9) NALOXONE INJ,SOLN 0.4MG/1ML IV PRN For opioid ACTIVE overdose (difficult to arouse and RR<8). Call provider or HOSTLER HELPER. May repeat every 2-3 min up to 3 total doses. Administer INTRAMUSCULARLY if no IV access. 10) NITROGLYCERIN TAB,SUBLINGUAL 0.4MG SL QDAY PRN for ACTIVE chest pain 11) ONDANSETRON TAB 4MG PO Q6H PRN FOR NAUSEA ACTIVE 12) PIPERACILLIN/TAZOBACTAM 3.375GM 50ML INJ in ACTIVE PIPERACIL/TAZOB 3.375GM PREMIX 50 ML INFUSE OVER 30 MINUTES For 4 days (07/03-07/07) IVPB Q6H 13) POTASSIUM PHOSPHATE/SODIUM PHOSPHATE TAB 1 TABLET PO ACTIVE QID FOR 4 DOSES ONLY (INCLUDING NOW DOSE) (1 tab KPhos Neutral = 8 mmol PHOS, 13 mEq Na, 1.1 mEq K) 14) REFRIGERATED NARCOTIC INJ SEE IV ORDER IV BORING MACHINE SET UP OPERATOR ACTIVE THIS ORDER IS FOR NURSING PYXIS ACCESS AND PHARMACY INFORMATION ONLY DOCUMENT CANE WEIGHER HELPER/DRIP ADMINISTRATION UNDER ORDER ON IV TAB 15) SALINE FLUSH INJ 10ML IV Q8H AFTER EACH USE, MINIMUM ACTIVE OF EVERY SHIFT. 16) SPIRONOLACTONE TAB 12.5MG PO QDAY ACTIVE Pending Inpatient Medications Status 1) HYDROMORPHONE INJ,SOLN 0.2-0.4 MG IV Q6H PRN PENDING 2) OXYCODONE TAB 5MG PO Q4H PRN PENDING 18 Total Medications Labs: - INR: INR 1.2 H PLASMA (06/21/24 17:24) - Complete Blood Count White count: WBC 18.3 H (07/05/24) Hemoglobin: HGB 14.1 (07/05/24) Hematocrit: HCT 43.4 (07/05/24) Platelets: PLT 317 (07/05/24) - Complete Metabolic Panel SODIUM 135 L (07/05/24) POTASSIUM 3.8 (07/05/24) CHLORIDE 104 (07/05/24) CO2 24 (07/05/24) UREA NITROGEN 12 (07/05/24) CREATININE 0.7 (07/05/24) GLUCOSE 84 (07/05/24) CALCIUM 9.3 (07/05/24) MAGNESIUM 2.0 (07/05/24) EGFR (04/01) 07/10/2021@0641 74 CREATININE EGFR (CKD-EPI) 07/05/2024@0530 >90 AST/SGOT 23 (06/23/24) ALT/SGPT 12 (06/23/24) ALK PHOSPHATASE 77 (06/23/24) ALBUMIN 3.7 (06/23/24) BILIRUBIN, TOTAL 0.8 (06/23/24) Imaging no recent imaging Assessment/Plan: 74yoM with h/o CAD, [...] recovering appropriately. leukocytosis is down-trending (18 from 20). hemoglobin is stable at 14. tolerating fulls without emesis and only minimal nausea. Adequate urine output after tracey removed (1.1 cc/kg/hr since midnight). Cr 0.7. Changes today: - PT/OT consult - Regular diet - Discontinue CANE WEIGHER HELPER, start PRN oxycodone and dilaudid Plan: - Consults: Medicine co-management, WOCN for new stoma. Appreciate recommendations - Pain control: tylenol, robaxin, oxycodone, prn dilaudid - Zosyn x4d post-op (stop date: 07/07) - Cont to trend WBC - Keep drain for now - Ppx: DVT- lovenox - Dispo: cont inpt. pending stoma teaching, diet advancement D/w CRS staff, Dr. Graves. Ayla Mayen DO General Surgery PGY-2 /es/ Ayla Mayen DO RESIDENT, GEN SURG Signed: 07/05/2024 12:01 Receipt Acknowledged By: 07/05/2024 15:12 /alexi/ MARYBETH GRAVES MD STAFF SURGEON, COLON/RECTAL AYLA MAYEN [facility] Jul 05, 2024 07:00 AM NURSING NOTE: LOCAL TITLE: TELEMETRY AND OXIMETRY CENTRALIZED NOTE STANDARD TITLE: NURSING NOTE DATE OF NOTE: JUL 05, 2024@07:00 ENTRY DATE: JUL 05, 2024@10:45:39 AUTHOR: VERONICA MINA EXP COSIGNER: URGENCY: STATUS: COMPLETED Telemetry (Cardiac) Monitor: DAY Shift Telemetry initiation date/time: Jun@17:20. Telemetry indication: CAD + CHF Cardiac History: AAA, HTN, CAD, S/P PCI, CHF Cardiac rhythm interpretation: SINUS SOCORRO W/BBB HR:54 [place] Int:0.17 QRS Int:0.129 QT Int:0.485 QTc Int:0.429 Telemetry leads monitored this shift: II and V lead Alarm parameters verified this shift Continuous Oximetry Monitor: DAY Shift Continuous oximetry initiation date/time: Jun@17:20. Oximetry indication: Post Anesthesia Respiratory history: JUANJOSE Continuous oximetry reading: PROBE OFF.....NURSE MARTI KELLER Alarm parameters verified this shift. Accuracy of oxygen reading verified by waveform and/or review. /alexi/ GEE ERICKSON Stitch Bonding Machine Drawer In Signed: 07/05/2024 10:47 VERONICA MINA [facility] Jul 05, 2024 03:07 AM NURSING INPATIENT NOTE: LOCAL TITLE: [place] [facility] STANDARD TITLE: NURSING INPATIENT NOTE DATE OF NOTE: JUL 05, 2024@03:07 ENTRY DATE: JUL 05, 2024@03:07:04 AUTHOR: ALIA PINTO EXP COSIGNER: URGENCY: STATUS: COMPLETED Nursing Shift Note Nursing care provided from [phone] Highlights from shift: [place] in bed at start of shift. Pain well controlled by CANE WEIGHER HELPER pump- 10. VSS. Lung sounds clear.Bowel sounds active. 2 L NC administered while sleeping- O2 sats 96-98. JUAN drain to left lower abdominal quad 10 mL. Ileostomy emptied 100 mL, green/black thick output. Per WOC note- bag will be changed later this AM if [place] allows. Silverlon dressing changed due to ileostomy ouput leaking onto it. Sutures intact and well-approximated. Voiding via urinal 600 mL, clear yellow. PRN zofran administered @ 0450 for nausea. reports PO zofran relieves nausea well.IV zosyn administered as scheduled by provider.. See ICCA for detailed assessment, Education provided on medication/cares this shift as needed Assessment Type: SKIN REINSPECTION/REASSESSMENT SKIN INSPECTION: Skin Color: Usual for ethnicity Skin Temperature: Warm Skin Moisture: Normal Skin Turgor: Elastic (normal/immediate) Clotilde Skin Assessment: The patient's Clotilde Scale Score is 19. The patient is [...] limited. Nutrition -- usual food intake patterns Probably inadequate. Friction and shear No apparent problem. INTERVENTIONS: The pressure injury interventions were not needed - patient/resident is not at risk. RISK FACTORS THAT INCREASE RISK FOR DEVELOPING PRESSURE INJURIES: The patient/resident has the following: Device(s): (nasogastric tubes, oxygen tubing, urinary catheters, cell phone etc.) Comment: CANE WEIGHER HELPER pump SKIN ALTERATIONS: Wound Documentation from the past year: Skin Assessment 07/04/2024 Skin Integrity - Wound 07/03/2024 Skin Integrity - Wound abdomen incision with silerlon dressing, shadow drainage. 06/25/2024 Skin Integrity - Wound 06/24/2024 Skin Integrity - Wound low abdominal JUAN site - cdi 06/24/2024 Skin Integrity - Wound LLQ JUAN site, CDI. 06/23/2024 Skin Integrity - Wound -LLQ: JUAN drain; stay fix dressing is CDI, tubing securment device applied. Incision and Flaps: Incision 1: Location: abdomen incision with silverlon dressing. shadow drainage present. JUAN drain to LLQ. Wound drainage none. Skin Interventions performed this shift: Patient turned [id number] or as appropriate while in bed. /alexi/ ALIA CHRISTIANSON, RN Signed: 07/05/2024 06:51 ALIA PINTO [facility] Jul 04, 2024 11:00 PM NURSING NOTE: LOCAL TITLE: TELEMETRY AND OXIMETRY CENTRALIZED NOTE STANDARD TITLE: NURSING NOTE DATE OF NOTE: JUL 04, 2024@23:00 ENTRY DATE: JUL 05, 2024@03:42:27 AUTHOR: DIANA LI COSIGNER: URGENCY: STATUS: COMPLETED Telemetry (Cardiac) Monitor: Brim Blocker Telemetry initiation date/time: Jun@17:20. Telemetry indication: CAD + CHF Cardiac History: AAA, HTN, CAD, S/P PCI, CHF Cardiac rhythm interpretation: Sinus Bradycardia w/1st Degree AVB, and BBB HR:48 [place] Int:.241 QRS Int:.127 QT Int:.468 QTc Int:.417 Telemetry leads monitored this shift: II and V lead Alarm parameters verified this shift Continuous Oximetry Monitor: Brim Blocker Continuous oximetry initiation date/time: Jun@17:20. Oximetry indication: Post Anesthesia Respiratory history: JUANJOSE Continuous oximetry readin% Alarm parameters verified this shift. Accuracy of oxygen reading verified by waveform and/or review. /alexi/ Марина Mcclendon tech. [employer] ([employer]). Signed: 07/05/2024 03:44 DIANA LI [facility] Jul 04, 2024 07:20 PM NURSING INPATIENT NOTE: LOCAL TITLE: [facility] NURSING PROGRESS NOTE STANDARD TITLE: NURSING INPATIENT NOTE DATE OF NOTE: JUL 04, 2024@19:20 ENTRY DATE: JUL 04, 2024@19:21:04 AUTHOR: YANDEL COREAS EXP COSIGNER: URGENCY: STATUS: COMPLETED Admitting Diagnosis: DIVERTICULITIS Admission Date: JUL 03, 2024@05:59:05 Jung: OR-PACU DX: DIVERTICULITIS JUN 21, 2024@22:50:39 Jung: 2KC DX: COMPLICATED DIVERTICULITIS APR 23, 2024@11:20:38 Jung: 3K DX: DIVERTICULITIS ABSC W/FIST ALLERGIES: TERAZOSIN (Mar 13, 2015) Code Status: Full Age: 73 *SEE ICIP/BCMA FOR FULL ASSESSMENT* CARED FOR FROM 08:00-20:00 Nursing Shift Note Focused assessment/pertinent notes from shift: Pt. is alert and oriented X4. VSS, rating pain at 4/10. Pt. said he feels like the CANE WEIGHER HELPER pump is helping. Bilateral piv's in hands. D5 1/2 NS with 20 K infusing until this evening. Tracey removed at noon and emptied at that time for 250 mls. Pt. voided 200 mls at approximately 15:00. Bladder scanned afterwards for (?) zero mls. Difficult to get bladder scan as patient has silverlon dressing right where he needs to be scanned. But no residual noted. Pt. said he felt fine/empty. Voiding another 200 mls this evening. Denies passing flatus. Bowel sounds are hypoactive. Very small amount of liquid brown in ostomy. Not emptied this tour. JUAN drain emptied for a total 55 mls serosanginous drainage this 12 hour tour. Pt. encouraged to get out of bed and ambulate but declined. Didn't drink much liquid at meals. Pt. said he's really tired today from staying up and watching the election. Pt. said he plans to do everything tomorrow after he gets a decent nights rest. RECENT VITALS: Blood Pressure: 159/73 (07/04/2024 16:27) Pulse: 55 (07/04/2024 16:27) Temperature: 97.8 F [36.6 C] (07/04/2024 16:27) Respiratory Rate: 16 (07/04/2024 16:27) Oxygen Saturation: 96% (07/04/2024 16:27) Delivery of Oxygen: Room Air Recent Labs: INR 1.2 H (06/21/24) PT 13.9 H (06/21/24) SODIUM 137 (07/04/24) CHLORIDE 107 (07/04/24) POTASSIUM 3.7 (07/04/24) MAGNESIUM 1.9 (07/04/24) WBC 20.6 H (07/04/24) HGB 14.2 (07/04/24) HCT 43.4 (07/04/24) PLT 329 (07/04/24) CREATININE 0.7 (07/04/24) Blood Glucose: FINGERSTICK GLUCOSE 126 H (07/03/24) HEMOGLOBIN A1C 4.9 (06/08/24) Assessment Type: SKIN REINSPECTION/REASSESSMENT SKIN INSPECTION: Skin Color: Usual for ethnicity Skin Temperature: Warm Skin Moisture: Normal Skin Turgor: Elastic (normal/immediate) Clotilde Skin Assessment: The patient's Clotilde Scale Score is 19. The patient is [...] limited. Nutrition -- usual food intake patterns Probably inadequate. Friction and shear No apparent problem. INTERVENTIONS: The pressure injury interventions were not needed - patient/resident is not at risk. RISK FACTORS THAT INCREASE RISK FOR DEVELOPING PRESSURE INJURIES The patient/resident does not have any additional risk factors. SKIN INTEGRITY: Silverlon dressing to lower midline abdomen. Dressing is intact with dime size shadow drainage noted on the lower dressing. Stab sites open to air and c,d,i. /es/ YANDEL COREAS RN REGISTERED NURSE Signed: 07/04/2024 19:35 YANDEL COREAS [facility] Jul 04, 2024 06:33 PM PRIMARY CARE NOTE: LOCAL TITLE: MEDICINE INPT CO-MANAGEMENT NOTE STANDARD TITLE: PRIMARY CARE NOTE DATE OF NOTE: JUL 04, 2024@18:33 ENTRY DATE: JUL 04, 2024@18:33:46 AUTHOR: LYNN CAMERON COSIGNER: URGENCY: STATUS: COMPLETED Nursing Notes reviewed. SUBJECTIVE: Patient reports abdominal pain being reasonably well controlled on CANE WEIGHER HELPER. No nausea today, but reported episode last night. Denies dyspnea or chest pain OBJECTIVE VITALS: BLOOD PRESSURE: High: 160/70 (JUL 03, 2024@06:30) Low: 132/74 (JUL 04, 2024@10:39) PULSE: High: 83 (JUL 04, 2024@00:09:34) Low: 48 (JUL 03, 2024@06:30) RESPIRATION: High: 16 (JUL 04, 2024@00:09:34) Low: 14 (JUL 03, 2024@06:30) TEMPERATURE: High: 98.5 (JUL 03, 2024@06:30) Low: 97.8 (JUL 04, 2024@16:27) WEIGHT: High: 205.6 (JUL 03, 2024@06:30) Low: 205.6 (JUL 03, 2024@06:30) PHYSICAL EXAM: GENERAL: Elderly male in NAD CV: Regular rhythm, mild bradycardia, normal S1/S2, no murmur RESPIRATORY: Decreased breath sounds at the bases, R >L, no wheeze or crackles ABDOMEN: Hypoactive bowel sounds, soft, diffusely tender, mildly distended, ostomy with small amount of stool, JUAN drain with small amount of serosanguinous output. EXTREMITIES: No LE edema NEURO: Alert and oriented, grossly non-focal LABS: WBC: 20.6 H HGB: 14.2 PLT: 329 NEUTROPHIL, ABSOLUTE: 18.6 H GLUCOSE: 129 H UREA NITROGEN: 16 CREATININE: 0.7 SODIUM: 137 POTASSIUM: 3.7 CHLORIDE: 107 CO2: 22 CALCIUM: 9.0 PO4: 2.8 MAGNESIUM: 1.9 B-TYPE NATRIURETIC PEPTIDE: 292 H FINGERSTICK GLUCOSE: 141- 126 ASSESSMENT & PLAN: 73 year old male with CAD s/p PCI with EVIE to proximal RCA & mid RCA 03/23/2016, second degree Mobitz I AV block (Wenckebach), HFpEF, HTN, HLD, glucose intolerance , JUANJOSE not on CPAP, AAA, bilateral GAIL aneurysms, tobacco use disorder in remission, cannabis use, small hiatal hernia, kidney infarct in 2019, and chronic diverticulitis with colovesicular fistula admitted for sigmoid colectomy, splenic flexure mobilization, and diverting loop ileostomy. # Chronic diverticulitis c/b colovesicular fistula s/p lap converted to open sigmoid colectomy, splenic flexure mobilization, and diverting loop ileostomy. # Worsening leukocytosis ( likely reactive) - Management per CRS - Agree with Pip/tazo for now, need to clarify planned duration of therapy Chronic medical problems: # CAD - Cont. Isosorbide and statin - Will need to clarify why Pt is not on ASA # 2d degree AV block (Wenckebach) - Avoid AV blocking meds - Cont. telemetry # HFpEF. So far appears euvolemic. BNP s mildly elevated. - Restarting MASTER MOTORCYCLE TECHNICIAN empagliflozin today , with plan to restart furosemide and spironolactone in am if no nausea/ has decent PO intake - Monitoring fluid status closely # HTN - Restarted on MASTER MOTORCYCLE TECHNICIAN HCTZ/lisinopril this am. # HLD - Cont. MASTER MOTORCYCLE TECHNICIAN atorvastatin # Glucose intolerance . No hyperglycemia noted so far - Will monitor glucose level on daily BMP # JUANJOSE - Cont. supplemental nocturnal O2 @ 2 L/min NC Prophylaxis: DVT - start sq enoxaparin as soon as okayed by primary service /alexi/ LYNN CAMERON MD STAFF PHYSICIAN Signed: 07/04/2024 18:46 LYNN CAMERON [facility] Jul 04, 2024 03:05 PM NURSING NOTE: LOCAL TITLE: TELEMETRY AND OXIMETRY CENTRALIZED NOTE STANDARD TITLE: NURSING NOTE DATE OF NOTE: JUL 04, 2024@15:05 ENTRY DATE: JUL 04, 2024@17:33:56 AUTHOR: RAMIRO RUSSELL EXP COSIGNER: URGENCY: STATUS: COMPLETED Telemetry (Cardiac) Monitor: Evening Shift Telemetry initiation date/time: Jun@17:20. Telemetry indication: CAD + CHF Cardiac History: AAA, HTN, CAD, S/P PCI, CHF Cardiac rhythm interpretation: Sinus Rhythm with 1st Degree AVB and BBB HR:50 [place] Int:.28 QRS Int:.13 QT Int:.50 QTc Int:.45 Telemetry leads monitored this shift: II and V lead Alarm parameters verified this shift Continuous Oximetry Monitor: Evening Shift Continuous oximetry initiation date/time: Jun@17:20. Oximetry indication: Post Anesthesia Respiratory history: JUANJOSE Continuous oximetry readin-97 Alarm parameters verified this shift. Accuracy of oxygen reading verified by waveform and/or review. /alexi/ RAMIRO RUSSELL teleprinter Signed: 07/04/2024 17:35 RAMIRO RUSSELL [facility] Jul 04, 2024 01:44 PM WOUND CARE CONSULT: LOCAL TITLE: WOC NURSE CONSULT STANDARD TITLE: WOUND CARE CONSULT DATE OF NOTE: JUL 04, 2024@13:44 ENTRY DATE: JUL 04, 2024@13:44:23 AUTHOR: MARTI LAYTON EXP COSIGNER: URGENCY: STATUS: COMPLETED Airplane Captain visited patient, introduced self and role. declined education and said come back tomorrow, and was focused on meal tray. Airplane Captain explained that independent care of ostomy pouch to prevent leaking and maintain healthy skin will be important for his discharge plans to get back home. Patient states I don't like the word leaking! [place] agrees to learn tomorrow, and mentions that it is difficult to see his pouch. Airplane Captain encouraged standing in front of the bathroom mirror at education session, he agrees he can do that. Will re-visit in the AM and reattempt ostomy education for new diverting loop ileostomy. Nursing to continue education on pouch emptying. Offer vent as needed for gas, and change pouch as needed with jung stock materials. /alexi/ MARTI LAYTON BS, RN, CWOCN Certified Wound, Ostomy, Continence Nurse Signed: 07/04/2024 13:48 Receipt Acknowledged By: * AWAITING SIGNATURE * WENCESLAO POON * AWAITING SIGNATURE * AYLA MAYEN * AWAITING SIGNATURE * KATELYNN PERSON ANNA E [facility] Jul 04, 2024 10:48 AM PASTORAL CARE NOTE: LOCAL TITLE: WET WHEELER-VISITATION NOTE STANDARD TITLE: PASTORAL CARE NOTE DATE OF NOTE: JUL 04, 2024@10:48 ENTRY DATE: JUL 04, 2024@10:48:29 AUTHOR: LEILANI HOLLIDAY EXP COSIGNER: URGENCY: STATUS: COMPLETED WET WHEELER VISIT DECLINE NOTE SUBJECTIVE: Routine Glass Washer And Carrier Visit OBJECTIVE: Six Color Press Operator met with at his bedside for a quick visit. ASSESSMENT/SPIRITUAL DISTRESS OR COPING: - stated that he did not want a visitor at this time. INTERVENTION: - Six Color Press Operator complied with declining the visit. PLAN: - Update 's [place] Preference [place]. - Glass Washer And Carrier will continue to assess patient for his spiritual and emotional wellness during his hospital tour. /alexi/ LEILANI HOLLIDAY MDIV, [facility] [place] Staff Six Color Press Operator Signed: 07/04/2024 10:49 LEILANI HOLLIDAY [facility] Jul 04, 2024 08:51 AM COLON & RECTAL SURGERY NOTE: LOCAL TITLE: COLON-RECTAL INPT PROGRESS NOTE STANDARD TITLE: COLON & RECTAL SURGERY NOTE DATE OF NOTE: JUL 04, 2024@08:51 ENTRY DATE: JUL 04, 2024@08:51:41 AUTHOR: AYLA MAYEN EXP COSIGNER: URGENCY: STATUS: COMPLETED INPATIENT PROGRESS NOTE Subjective: Pt feeling well, no nausea/vomiting. Wants to walk around today. Objective: A&O, NAD NLB on RA Abd is distended but compressible, appropriately TTP, drain with ss/ - ileostomy with small amount of stool Ext wwp CN II-XII grossly intact Tracey: 300 cc overnight, no output recorded since midnight JUAN drain: 160 cc since surgery Ileo: 0 cc- none recorded in I/Os Active Medications: Active Inpatient Medications (including Supplies): Active Inpatient Medications Status 1) ACETAMINOPHEN (INPT) TAB 1000MG PO Q8H ACTIVE 2) ATORVASTATIN TAB 20MG PO QHS ACTIVE 3) D5/0.45% NaCl & 20 mEq KCl INJ,SOLN in D5/0.45% NaCl ACTIVE & 20 mEq KCL 1000 ML 75 ml/hr IV 4) ISOSORBIDE MONONITRATE TAB,SA 30MG PO QDAY ACTIVE 5) METHOCARBAMOL TAB 500MG PO Q4H ACTIVE 6) NALOXONE INJ,SOLN 0.4MG/1ML IV PRN For opioid ACTIVE overdose (difficult to arouse and RR<8). Call provider or HOSTLER HELPER. May repeat every 2-3 min up to 3 total doses. Administer INTRAMUSCULARLY if no IV access. 7) NITROGLYCERIN TAB,SUBLINGUAL 0.4MG SL QDAY PRN for ACTIVE chest pain 8) ONDANSETRON TAB 4MG PO Q6H PRN FOR NAUSEA ACTIVE 9) CANE WEIGHER HELPER HYDROMORPHONE INJ,SOLN HYDROMORPHONE CANE WEIGHER HELPER 20 MG in ACTIVE 0.9% NACL 100 ML STD. Dose: Conc = 0.2mg/ml@0 Rate:0MG/HR,PCAdose:0.1MG,Loc kout:10Min, MaxPCAdoses:6 IV 10) PIPERACILLIN/TAZOBACTAM 3.375GM 50ML INJ in ACTIVE PIPERACIL/TAZOB 3.375GM PREMIX 50 ML INFUSE OVER 30 MINUTES For 4 days (07/03-07/07) IVPB Q6H 11) REFRIGERATED NARCOTIC INJ SEE IV ORDER IV BORING MACHINE SET UP OPERATOR ACTIVE THIS ORDER IS FOR NURSING PYXIS ACCESS AND PHARMACY INFORMATION ONLY DOCUMENT CANE WEIGHER HELPER/DRIP ADMINISTRATION UNDER ORDER ON IV TAB 12) SALINE FLUSH INJ 10ML IV Q8H AFTER EACH USE, MINIMUM ACTIVE OF EVERY SHIFT. Pending Inpatient Medications Status 1) EMPAGLIFLOZIN TAB,ORAL 12.5MG PO QDAY PENDING 2) HYDROCHLOROTHIAZIDE/LISINOPRI L TAB 1 TABLET PO QDAY PENDING 3) SPIRONOLACTONE TAB 12.5MG PO QDAY PENDING 15 Total Medications Labs: - INR: INR 1.2 H PLASMA (06/21/24 17:24) - Complete Blood Count White count: WBC 20.6 H (07/04/24) Hemoglobin: HGB 14.2 (07/04/24) Hematocrit: HCT 43.4 (07/04/24) Platelets: PLT 329 (07/04/24) - Complete Metabolic Panel SODIUM 137 (07/04/24) POTASSIUM 3.7 (07/04/24) CHLORIDE 107 (07/04/24) CO2 22 (07/04/24) UREA NITROGEN 16 (07/04/24) CREATININE 0.7 (07/04/24) GLUCOSE 129 H (07/04/24) CALCIUM 9.0 (07/04/24) MAGNESIUM 1.9 (07/04/24) EGFR (04/01) 07/10/2021@0641 74 CREATININE EGFR (CKD-EPI) 07/04/2024@0530 >90 AST/SGOT 23 (06/23/24) ALT/SGPT 12 (06/23/24) ALK PHOSPHATASE 77 (06/23/24) ALBUMIN 3.7 (06/23/24) BILIRUBIN, TOTAL 0.8 (06/23/24) Imaging No new imaging Assessment/Plan: 74yoM with h/o CAD, HLD, [...] placement with CRS & Urology on 07/03/24. POD#1- pt is recovering appropriately. post-op leukocyotosis. Hgb 14.2 - no concern for bleeding at this time. - Consults: Medicine co-management, WOCN for new stoma. Appreciate recommendations - Pain control: tylenol, robaxin, CANE WEIGHER HELPER pump - Advance to FLD today - Discontinue fluids - Remove tracey - Zosyn x4d post-op - Trend WBC - Ppx: DVT- lovenox - Dispo: cont inpt. pending stoma teaching, ROBF, diet advancement Patient was d/w CRS fellow who d/w staff. Ayla Mayen DO General Surgery PGY-2 /alexi/ Ayla Mayen DO RESIDENT, GEN SURG Signed: 07/04/2024 09:10 Receipt Acknowledged By: 07/06/2024 14:14 /alexi/ WENCESLAO POON MD STAFF SURGEON, COLON/RECTAL AYLA MAYEN [facility] Jul 04, 2024 07:15 AM NURSING NOTE: LOCAL TITLE: TELEMETRY AND OXIMETRY CENTRALIZED NOTE STANDARD TITLE: NURSING NOTE DATE OF NOTE: JUL 04, 2024@07:15 ENTRY DATE: JUL 04, 2024@11:08:49 AUTHOR: RAMIRO RUSSELL EXP COSIGNER: URGENCY: STATUS: COMPLETED Telemetry (Cardiac) Monitor: Day Shift Telemetry initiation date/time: Jun@17:20. Telemetry indication: CAD + CHF Cardiac History: AAA, HTN, CAD, S/P PCI, CHF Cardiac rhythm interpretation: Sinus Rhythm HR:67 [place] Int:.32 QRS Int:.11 QT Int:.45 QTc Int:.47 Telemetry leads monitored this shift: II and V lead Alarm parameters verified this shift Continuous Oximetry Monitor: Day Shift Continuous oximetry initiation date/time: Jun@17:20. Oximetry indication: Post Anesthesia Respiratory history: JUANJOSE Continuous oximetry readin-97 Alarm parameters verified this shift. Accuracy of oxygen reading verified by waveform and/or review. /alexi/ RAMIRO RUSSELL teleprinter Signed: 07/04/2024 11:11 RAMIRO RUSSELL [facility] Jul 04, 2024 01:15 AM NURSING INPATIENT NOTE: LOCAL TITLE: [facility] NURSING PROGRESS NOTE STANDARD TITLE: NURSING INPATIENT NOTE DATE OF NOTE: JUL 04, 2024@01:15 ENTRY DATE: JUL 04, 2024@01:15:43 AUTHOR: ALIA PINTO EXP COSIGNER: URGENCY: STATUS: COMPLETED Nursing Shift Note Nursing care provided from [phone] Highlights from shift: [place] in bed at start of shift. reports pain 5/10 in abdominal region. given scheduled metho. dangled at side of bed. No reports of dizziness. VSS. A&O x 4. [place] able to make needs known, call light in place. Lung sounds clear. Bowel sounds active. Ostomy on RLQ- brown/liquid output.JUAN drain left abdominal. 100mL red, bloody drainage. Mepilex to abdominal incision. scant drainage noted. tracey catheter in place. 250 mL red urine, w/ abnormal smell. CANE WEIGHER HELPER pump delivering hydromorphone in place. 2nd nurse lasting machine operator bed present. See ICCA for detailed assessment, Education provided on medication/cares this shift as needed Assessment Type: SKIN REINSPECTION/REASSESSMENT SKIN INSPECTION: Skin Color: Usual for ethnicity Skin Temperature: Warm Skin Moisture: Normal Skin Turgor: Elastic (normal/immediate) Clotilde Skin Assessment: The patient's Clotilde Scale Score is 19. The patient is [...] limited. Nutrition -- usual food intake patterns Probably inadequate. Friction and shear No apparent problem. INTERVENTIONS: The pressure injury interventions were not needed - patient/resident is not at risk. RISK FACTORS THAT INCREASE RISK FOR DEVELOPING PRESSURE INJURIES The patient/resident does not have any additional risk factors. SKIN ALTERATIONS: Wound Documentation from the past year: Skin Assessment 07/03/2024 Skin Integrity - Wound abdomen incision with silerlon dressing, shadow drainage. 06/25/2024 Skin Integrity - Wound 06/24/2024 Skin Integrity - Wound low abdominal JUAN site - cdi 06/24/2024 Skin Integrity - Wound LLQ JUAN site, CDI. 06/23/2024 Skin Integrity - Wound -LLQ: JUAN drain; stay fix dressing is CDI, tubing securment device applied. Incision and Flaps: Incision 1: Location: abdominal incision- silverlon drsg in place, small amount of drainage apparent. left abdominal JUAN site. CHANI. Wound drainage none. Skin Interventions performed this shift: Patient turned [id number] or as appropriate while in bed. /alexi/ ALIA CHRISTIANSON, RN Signed: 07/04/2024 06:41 BLAIRALIA Jeronimo [facility] Jul 03, 2024 08:24 PM SURGERY ATTENDING INPATIENT NOTE: LOCAL TITLE: GENERAL SURGERY INPT PROGRESS NOTE STANDARD TITLE: SURGERY ATTENDING INPATIENT NOTE DATE OF NOTE: JUL 03, 2024@20:24 ENTRY DATE: JUL 03, 2024@20:25:33 AUTHOR: MERY NGUYEN COSIGNER: URGENCY: STATUS: COMPLETED Post op check Subjective: Doing well. Watching TV, just received pain meds and feeling fine. No nausea or vomiting. Pt did have some ice chips. Objective: General: Awake, Alert, Oriented X3, No apparent distress Cardio: regular rate, regular rhythm Lungs: No respiratory distress Abd: Soft, minimal appropriate tenderness, non-distended, no rebound, no guarding Extremities: No pitting edema Neuro: A&Ox3, no focal neurologic concerns Assessment and plan Pt is 73 year old male post op day 0 for sigmoid colectomy with loop ileostomy. Doing well. No nausea or vomiting. MD JAMILAH Alonso /es/ MD JAMILAH ALONSO Signed: 07/03/2024 20:28 MERY NGUYEN [facility] Jul 03, 2024 07:26 PM TREATMENT PLAN INTERDISCIPLINARY NOTE: LOCAL TITLE: ITP INTERDISCIPLINARY TREATMENT PLAN STANDARD TITLE: TREATMENT PLAN INTERDISCIPLINARY NOTE DATE OF NOTE: JUL 03, 2024@19:26 ENTRY DATE: JUL 03, 2024@19:26:10 AUTHOR: OSORIO BASSETT EXP COSIGNER: URGENCY: STATUS: COMPLETED ITP INTERDISCIPLINARY TREATMENT PLAN Has ADDENDA Interdisciplinary Treatment Plan (ITP) Date of current Admission: Jun Medical problems to be addressed, including reason for admission as well as all active medical problems: 1. lap sigmoidectomy At risk indicators at time of admission: Pain noted other than 0 on 0-10 pain scale, High risk for falls noted using the Garcia tool Support services in community: Current living situation: Lives with others (indicate who in comments) Patient/Family input to care: girlfriend Patient Goals:pain control Treatment plan/Interventions: Turn and reposition every 2 hours while in bed., Educated Patient on use of Pain Scale, Use stable shoes or treaded slippers, and use glasses and hearing aids if indicated., Place fall screed person the Kardex. Measurable Outcomes: Patient will verablize understanding of the 0-10 pain scale., Patient will deny pain or report that pain is managed at an acceptable level., Patient will be afebrile and without signs or symptoms of infection. Discharge Plan: Patient will return home. Anticipated resources needed for discharge: No anticipated resources needed at this time. Anticipated educational needs: Tests/treatments/procedures: risks and benefits, disease process, medication management, and discharge instructions. Participants: patient, MD Transportation needs: no anticipated transportation needs noted. Plan of care shared with patient/family and verbalized with understanding. /alexi/ OSORIO BASSETT RN REGISTERED NURSE Signed: 07/03/2024 19:28 07/10/2024 ADDENDUM STATUS: COMPLETED Objectives met per vet's preferences /alexi/ Naima Tirado RN registered nurse Signed: 07/10/2024 09:44 OSORIO BASSETT [facility] Jul 03, 2024 07:17 PM NURSING ADMISSION EVALUATION NOTE: LOCAL TITLE: [facility] ACUTE INPAT[facility] NSG ADMISSION SCREEN STANDARD TITLE: NURSING ADMISSION EVALUATION NOTE DATE OF NOTE: JUL 03, 2024@19:17 ENTRY DATE: JUL 03, 2024@19:17:53 AUTHOR: OSORIO BASSETT EXP COSIGNER: URGENCY: STATUS: COMPLETED === ALLERGY/ADVERSE DRUG REACTION (ADR) REVIEW (MRT5) === FACILITY ALLERGY/ADR -------- No Remote Allergy/ADR Data available for this patient [facility] TER[facility]OSIN Allergy/Adverse Drug Reaction Review to be conducted by: Other: Allergy review by: pharm == MEDICATION REVIEW (MRR1) == Did patient bring medication(s) from home? No Medication Review to be conducted by pharm == GENERAL INFORMATION == Admission information given by: Patient Is there a legal guardian/conservator? No Preferred language for discussing healthcare: [place]olan Preferred mode of communication: Verbal Items at Bedside: Other: clothing. shoes === INFECTIOUS DISEASE RISK SCREEN === Travel Screen: Have you traveled within the [facility] within the last 21 days? No Have you traveled outside the [facility] within the last 21 days? No Within the last 14 days, have you had: No known exposure Other Exposure to Infectious Disease: No known exposure Patient reported the following symptoms: No Symptoms Present History of Multiple Drug Resistant Organism (MDRO): No === NUTRITION SCREENING === Malnutrition Screening Weight (Previous 6 months): Measurement DT WEIGHT LB(KG)[BMI] 07/03/2024 06:30 205.6(93.26)[30*] 06/08/2024 11:43 206.4(93.62)[30*] 05/15/2024 08:20 210(95.25)[29*] 04/23/2024 [...] special dietary needs, or ethnic, cultural or religion preferences that would affect their dietary needs. [...] Food Insecurity Disposition: Patient declined additional assistance/consults == RISK SCREENINGS == Alcohol Screen: Screen to be completed by: Nurse: SCREEN FOR ALCOHOL (AUDIT-C) An alcohol screening test (AUDIT-C) was negative (score=0). 1. How often did you have a drink containing alcohol in the past year? Consider a drink to be a 12 ounce can or bottle of regular beer, 8 ounces of malt liquor, a 5 ounce glass of table wine, or a 1.5 ounce shot of liquor (like scotch, gin, or vodka). Never 2. How many drinks containing alcohol did you have on a typical day when you were drinking in the past year? Response not required due to responses to other questions. 3. How often did you have six or more drinks on one occasion in the past year? Response not required due to responses to other questions. *Does the patient consume alcohol? No Tobacco Use: Never - tobacco user Do you currently or have you ever used alternative nicotine products? No Substance Use Assessment: *Do you use any recreational drugs or narcotics (prescription or non-prescription)? No === RISK OF WANDERING === The patient does not have a history of wandering. The patient does not have a history of elopement. The patient is not expressing a desire to leave. = SUICIDE SCREEN = [place] Suicide Severity Rating Scale (C-SSRS) 1. Over [...] to other questions. C-SSRS Screen is Negative == EXPOSURE TO VIOLENCE AND ABUSE PRE-SCREEN == Are you worried for your safety, that you will be hurt or harmed? No Has anyone tried to force you to sign papers or use your money against your will? No == POST TRAUMATIC STRESS DISORDER CARE CONSIDERATIONS == To minimize a startle response, what is your preference on how best to awaken you? No preference === REPRODUCTIVE & SEXUAL HEALTH === Do you have any sexual or reproductive concerns you would like your healthcare team to be aware of? No == ADVANCE DIRECTIVE == Notification of Rights Related to Advance Directives: Written notification provided. *The patient wishes to receive information about or assistance with Advance Care Planning and/or Advance Directive: No = SPIRITUALITY = Are there religion practices or spiritual concerns you want the line tender, your provider, and other health care team members to know? No == ANTICIPATED DISCHARGE NEEDS == Where do you live? Housing owned/rented by [place]: Method of transportation upon discharge: Private Vehicle: Are there any anticipated barriers to discharge? No = EDUCATIONAL NEEDS/LEARNING STYLE = Barriers to learning: None evident Patient learning style preferences: None == VISITOR INFORMATION == Will you have a primary support person while in the hospital? No Patient's Visitor Restriction preferences: No Privacy Review: No passcode provided due to opt out ==== GARCIA FALL SCALE & TIPS PROGRAM ==== Garcia Fall Scale: The Garcia Fall scale was performed and score was 45. This is indicative of high risk for falls. History of falling: immediate or within 3 months? No Secondary diagnosis: Yes Ambulatory aid: None/bedrest/nurse assist Intravenous therapy/Heparin lock: Yes Gait/Transferring: Weakness Mental Status: Oriented to own ability/knows own limitations Fall Tailoring Interventions for Patient Safety (TIPS) Fall TIPS initiated with patient: Yes Interventions: Assistance out of bed: Call for assistance before getting out of bed === ASPIRATION RISK ASSESSMENT AND SWALLOW SCREEN === Aspiration Risk(s): Screening complete. No aspiration risk identified. Bedside Swallow Screen not indicated. ==== PAIN ASSESSMENT ==== Patient's acceptable pain goal: 3 Sometimes distracts me Are you currently experiencing pain? Yes - DVPRS scale used to assess Location: abdomen Defense and Veterans Pain Rating Scale (DVPRS): 3 Sometimes distracts me Pain Score: 3 /es/ OSORIO BASSETT RN REGISTERED NURSE Signed: 07/03/2024 19:25 OSORIO BASSETT [facility] Jul 03, 2024 06:25 PM INTERNAL MEDICINE CONSULT: LOCAL TITLE: MEDICINE CO-MANAGEMENT CONSULT STANDARD TITLE: INTERNAL MEDICINE CONSULT DATE OF NOTE: JUL 03, 2024@18:25 ENTRY DATE: JUL 03, 2024@18:26:02 AUTHOR: LYNN CAMERON COSIGNER: URGENCY: STATUS: COMPLETED PRIMARY SERVICE: CRS REASON FOR CONSULT: Multiple comorbidities HISTORY OF PRESENT ILLNESS: Mr. Weaver is a 73 year old male with CAD s/p PCI with EVIE to proximal RCA & mid RCA 03/23/2016, second degree Mobitz I AV block (Wenckebach), HFpEF, HTN, HLD, glucose intolerance , JUANJOSE not on CPAP, AAA, bilateral GAIL aneurysms, tobacco use disorder in remission, cannabis use, small hiatal hernia, kidney infarct in 2019, and chronic diverticulitis with colovesicular fistula admitted for sigmoid colectomy, splenic flexure mobilization, and diverting loop ileostomy. Patient was seen briefly in PACU. He reports feeling alright and offers no specific complaints. PAST MEDICAL HISTORY: Active problems - Computerized [...] . No additional CRC surveillance recommended by financial analysis consultant. 9. Decreased vitamin D - 02.24.2017 [...] - By 02.13.[address] 03.14.2020 OSH(ED [place], [place]): Pt. Declined Admission. 03.14.2020 CT with Mild Sigmoid diverticulitis. 04.23.2020 ED([facility]): Declined admission. 17. 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 18. Ex-tobacco user 19. Impaired Fasting Glucose ([facility] [id number]) - 02.26.2014 A1c 5.8%. 20. Adrenal mass [...] 24. Hiatal hernia 25. Shoulder Pain ([facility] [id number]) 26. Trigger finger 27. [facility] Primary Care - Community Care Primary: Dr. Cathi Simeon, [facility] [place], [place] [address]. ALLERGIES: TERAZOSIN (Mar 13, 2015) MEDICATIONS: Active Outpatient Medications (excluding Supplies): Outpatient Medications Status 1) ACETAMINOPHEN 500MG TAB TAKE TWO TABLETS BY MOUTH ACTIVE THREE TIMES A DAY NEEDED FOR PAIN FOR PAIN 2) AMOXICILLIN 875/CLAV K 125MG TAB TAKE 1 TABLET BY ACTIVE MOUTH TWICE A DAY INFECTION 3) ATORVASTATIN CALCIUM 40MG TAB TAKE ONE-HALF TABLET BY ACTIVE MOUTH AT BEDTIME FOR CHOLESTEROL 4) DOCUSATE NA 50MG/SENNOSIDES 8.6MG TAB TAKE 1 TABLET ACTIVE BY MOUTH AT BEDTIME FOR CONSTIPATION 5) EMPAGLIFLOZIN 25MG TAB TAKE ONE-HALF TABLET BY MOUTH ACTIVE EVERY DAY 6) FUROSEMIDE 20MG TAB TAKE ONE TABLET BY MOUTH EVERY ACTIVE DAY FOR EXCESS FLUID 7) HCTZ 12.5/LISINOPRIL 10MG TAB TAKE ONE HALF TABLET BY ACTIVE MOUTH EVERY DAY FOR BLOOD PRESSURE 8) IBUPROFEN 600MG TAB TAKE ONE TABLET BY MOUTH THREE ACTIVE TIMES A DAY NEEDED FOR PAIN 9) ISOSORBIDE MONONITRATE 30MG SA TAB TAKE ONE TABLET BY ACTIVE MOUTH EVERY DAY FOR CHEST PAIN 10) NITROFURANTOIN MONO/MACRO 100MG SA CAP TAKE [...] MOUTH ACTIVE EVERY DAY FOR BLOOD PRESSURE SOCIAL HISTORY: Lives alone in [place], [place]. Habits: Tobacco- quit 10 yrs ago, 1.5-2 PPD, started as a teen Alcohol- reports 2-3 drinks a few times/week Substance use- smokes cannabis daily REVIEW OF SYSTEMS All other systems were reviewed and are found to be negative and non- contributory, unless noted in the HPI. PATIENT EXAMINATION: VITALS: Temp: 98.5 F [36.9 C] (07/03/2024 06:30) BP: 160/70 (07/03/2024 06:30) HR: 48 (07/03/2024 06:30) RR: 14 (07/03/2024 06:30) O2SAT: 95 (JUL 03, 2024@06:30) Weight:93 PHYSICAL EXAM: GENERAL: Elderly male in NAD CV: RRR, normal S1/S2, no murmur RESPIRATORY: Decreased breath sounds at the bases, no crackles or wheeze ABDOMEN: Hypoactive bowel sounds, soft, diffusely tender, nondistended. Ostomy and JUAN drain in place EXTREMITES: No LE edema NEURO: Alert and oriented, grossly non-focal LABORATORY DATA: INGERSTICK GLUCOSE: 141 H POC PH: 7.387 POC PCO2: 34.4 L POC PO2: 401 H POC TCO2: 22 L POC HCO3: 20.7 L POC BE ECT: -4 L POC SO2: 100 H POC NA: 138 POC K: 3.5 POC HGB: 16.3 POC HCT: 48 POC IONIZED CA: 4.4 L APPEARANCE: CLEAR UR COLOR: YELLOW SPECIFIC GRAVITY: 1.031 UR BLOOD: NEGATIVE UR BILIRUBIN: NEGATIVE UR KETONES: 1+ UR GLUCOSE: 1000 UR PROTEIN: 30 UR PH: 6.0 WBC/HPF: 23 H RBC/HPF: 3 BACTERIA: NONE SEEN SQUAMOUS EPITHELIAL: 5 NITRITE, URINE: NEGATIVE WBC CLUMPS: PRESENT LEUKOCYTE ESTERASE: 250 WBC: 15.8 H HGB: 16.1 PLT: 357 ASSESSMENT & PLAN: 73 year old male with CAD s/p PCI with EVIE to proximal RCA & mid RCA 03/23/2016, second degree Mobitz I AV block (Wenckebach), HFpEF, HTN, HLD, glucose intolerance , JUANJOSE not on CPAP, AAA, bilateral GAIL aneurysms, tobacco use disorder in remission, cannabis use, small hiatal hernia, kidney infarct in 2019, and chronic diverticulitis with colovesicular fistula admitted for sigmoid colectomy, splenic flexure mobilization, and diverting loop ileostomy. # Chronic diverticulitis c/b colovesicular fistula s/p lap converted to open sigmoid colectomy, splenic flexure mobilization, and diverting loop ileostomy. - Management per CRS - Agree with Pip/tazo for now, need to clarify planned duration of therapy Chronic medical problems: # CAD - Cont. Isosorbide and statin - Will need to clarify why Pt is not on ASA # 2d degree AV block (Wenckebach) - Avoid AV blocking meds - Cont. telemetry # HFpEF - Holding MASTER MOTORCYCLE TECHNICIAN empagliflozin, furosemide and spironolactone for now - Monitoring fluid status closely # HTN - Will use prn hydralazine 20 mg q6mg prn for SBP >180 ( SHOULD AVOID B-BLOCKERS or CCB) # HLD - Cont. MASTER MOTORCYCLE TECHNICIAN atorvastatin # Glucose intolerance - Will monitor for hyperglycemia and start correctional scale Aspart if noted # JUANJOSE - Will use supplemental nocturnal O2 @ 2 L/min NC Prophylaxis: DVT - per primary service // LYNN CAMERON MD STAFF PHYSICIAN Signed: 07/04/2024 18:33 LYNN CAMERON [facility] Jul 03, 2024 05:41 PM NURSING POST OPERATIVE E & M NOTE: LOCAL TITLE: NURSING POST OPERATIVE NOTE STANDARD TITLE: NURSING POST OPERATIVE E & M NOTE DATE OF NOTE: JUL 03, 2024@17:41 ENTRY DATE: JUL 03, 2024@17:41:16 AUTHOR: OSORIO BASSETT EXP COSIGNER: URGENCY: STATUS: COMPLETED Surgical Procedure: lap sigmoidectomy Returned to floor at: Jun@17:15 Most Recent Vitals: Temperature: 98.5 F [36.9 C] (07/03/2024 06:30) Pulse: 48 (07/03/2024 06:30) Respirations: 14 (07/03/2024 06:30) Blood Pressure: 160/70 (07/03/2024 06:30) Oxygen Saturation and/or Supplemental Oxygen: Cardiac Rhythm: SB with 1st AVB Pain: Words: Ache Intensity (0=no pain - 10=worst pain) At present: 3 Worst pain: 6 Best pain gets: 2 Acceptable level: 2 Location: Abdomen Duration: Hours Aggravating and Alleviating factors: Neurological Check: Alert and Oriented, No Neuro Deficits. Patient opens eyes to Disoriented to Patient able to follow 2 step commands. Drains: [place] Gant Drain(s) Location: Tracey Catheter: red urine IV's (type, location, patency, insertion date): PIV, Bilateral wrists, patent, CDI. IV Fluids: Incision/Site/Dressing(s): midline silverlon dressing with shadow drainage, intact. Two abd lap sites closed per CHANI gabriel. Falls Risk: History of falls: No (0) Multiple diagnoses: Yes (15) Ambulatory status: Uses crutch, cane, walker, push wheelchair or assistive device. (15) Receiving IV therapy or has saline lock in place: Yes (20) Gait: Weak (10) Mental status: Alert and oriented to own ability. (0) Total Score: 60 Patient with positive screen for [place] Risk. Patient at high risk for injury from falls due to the following risk factors: Any surgery on this admission Individual interventions implemented this shift: *Interventions from previous 48 hours* No data available for: Falls Interventions Linn risk Precaution: Patient has a high risk for injury risk factor Yellow slippers for high falls risk and high injury risk Increase purposeful rounding Nursing interventions tried prior to use of continuous observation: Patient was placed on nursing continuous observation at . Patient was placed on nursing continuous observation status secondary to: Nursing Continuous Observation Re-Assessment and/or Discontinuation: Other: No noted behavior concerns. SKIN CLOTILDE SKIN RISK ASSESSMENT Sensory Perception:4 = No Impairment Moisture: 3 = Occasionally Moist Activity: 3 = Walks Occasionally Mobility: 3 = Slightly Limited Nutrition: 3 = Adequate Friction: 3 = No Apparent Problem 19-23 No Risk Score: 19 CURRENT SKIN Skin Color: Usual for ethnicity Skin Temperature: Warm Skin Moisture: Normal Skin Turgor: Elastic (normal/immediate) SKIN PROBLEMS Wound - other than pressure ulcer/injury (includes open surgical wounds/incisions): Location: abdomen incision with silerlon dressing, shadow drainage. No Edema Wound drainage: Amount: Scant Color: Red Characteristics: Serosanguineous INTERVENTIONS: No change in previous interventions as listed below 06/24/2024 Vaaes Pressure Injury Int Not Needed Skin Interventions performed this shift: Patient turned [id number] or as appropriate while in bed. Patient's heels elevated with pressure relief boots or pillows under calves. Patient kept clean and dry with barrier cream applied as ordered. Device(s) removed and skin underneath was inspected. Head of Bed kept below 30 degrees unless otherwise ordered. Pneumoboots/TEDS or PlexiPulse (pnuematic compression device) on patient: Yes Mental Status: alert PO Intake Status: NPO Activity Level: Able to assist with repositioning. Other Nursing Observations and Interventions: JUAN drain with red serosang drainage. Ileostomy beginning to put out brown liquid. /alexi/ OSORIO BASSETT RN REGISTERED NURSE Signed: 07/03/2024 17:49 OSORIO BASSETT [facility] Jul 03, 2024 05:25 PM NURSING NOTE: LOCAL TITLE: TELEMETRY AND OXIMETRY CENTRALIZED NOTE STANDARD TITLE: NURSING NOTE DATE OF NOTE: JUL 03, 2024@17:25 ENTRY DATE: JUL 03, 2024@17:55:24 AUTHOR: RAMIRO RUSSELL EXP COSIGNER: URGENCY: STATUS: COMPLETED Telemetry (Cardiac) Monitor: Evening Shift Telemetry initiation date/time: Jun@17:20. Telemetry indication: CAD + CHF Cardiac History: AAA, HTN, CAD, S/P PCI, CHF Cardiac rhythm interpretation: Sinus Bradycardia HR:51 [place] Int:.20 QRS Int:.14 QT Int:.51 QTc Int:.47 Telemetry leads monitored this shift: II and V lead Alarm parameters verified this shift Continuous Oximetry Monitor: Evening Shift Continuous oximetry initiation date/time: Jun@17:20. Oximetry indication: Post Anesthesia Respiratory history: JUANJOSE Continuous oximetry readin-98 Alarm parameters verified this shift. Accuracy of oxygen reading verified by waveform and/or review. /es/ RAMIRO RUSSELL [employer] Signed: 07/03/2024 17:59 RAMIRO RUSSELL [facility] Jul 03, 2024 01:40 PM ANESTHESIOLOGY OPERATIVE NOTE: LOCAL TITLE: ARK ANESTHESIA RECORD STANDARD TITLE: ANESTHESIOLOGY OPERATIVE NOTE DATE OF NOTE: JUL 03, 2024@13:40 ENTRY DATE: JUL 04, 2024@08:20:33 AUTHOR: BRIDGER WYMAN EXP COSIGNER: URGENCY: STATUS: COMPLETED See [facility] for Full Anesthesia Record /alexi/ BRIDGER WYMAN REGISTERED NURSE Signed: 07/04/2024 08:20 BRIDGER WYMAN [facility] Jul 03, 2024 01:40 PM ANESTHESIOLOGY OPERATIVE NOTE: LOCAL TITLE: ARK ANESTHESIA RECORD STANDARD TITLE: ANESTHESIOLOGY OPERATIVE NOTE DATE OF NOTE: JUL 03, 2024@13:40 ENTRY DATE: JUL 03, 2024@14:50:24 AUTHOR: JESSICA ALVARADO EXP COSIGNER: URGENCY: STATUS: COMPLETED See [facility] for Full Anesthesia Record /alexi/ Jessica Alvarado MD Physician, Anesthesiology Signed: 07/04/2024 08:28 JESSICA ALVARADO [facility] Jul 03, 2024 01:38 PM NURSING OPERATIVE NOTE: LOCAL TITLE: INTRAOPERATIVE NURSING NOTE STANDARD TITLE: NURSING OPERATIVE NOTE DATE OF NOTE: JUL 03, 2024@13:38 ENTRY DATE: JUL 03, 2024@13:38:04 AUTHOR: NIMO KILGORE EXP COSIGNER: URGENCY: STATUS: COMPLETED Intraoperative Nursing Note Part (D) Postoperative Assessment: Post-Op Skin Assessment Inspected patients skin post procedure Yes: No new abnormalities observed [facility] Perioperative plan of care was implemented with intraoperative goals and objectives met: Yes A debriefing procedure was performed by Drs. Suarez & Brandee Verifying the following: Procedure, Wound Classification, Specimens, EBL, Cultures A local anesthetic was used intraoperatively: No, block per anesthesia /es/ Nimo Kilgore, gerontological nurse practitioner Nurse, OR Signed: 07/03/2024 13:40 NIMO KILGORE [facility] Jul 03, 2024 01:29 PM SURGERY NOTE: LOCAL TITLE: SURGERY OR NOTE STANDARD TITLE: SURGERY NOTE DATE OF NOTE: JUL 03, 2024@13:29 ENTRY DATE: JUL 03, 2024@13:29:55 AUTHOR: CHAPITO HENAO EXP COSIGNER: URGENCY: STATUS: COMPLETED COLORECTAL SURGERY NOTE Attending: Yovanny Poon Fellow: Chapito Henao Date: 07/03/24 Procedure: Laparoscopic converted to open splenic flexure mobilizations, sigmoidectomy with colorectal anstamosis and diveriting loop ileostomy Specimen: Sigmoid EBL: 50mL Findings: - Severely inflamed sigmoid colon adhered to abdominal wall and pelvic side wall - Walled off pockets of pus including a cavity within the small bowel mesentary Indications: Mariano Weaver is a 73M with complex diverticulitis who presents for surgical resection Description: Mariano was identified in the preop area and the risks, benefits and alternatives to surgery were discussed. Consent was obtained and he was taken to the OR. A time out was performed and antibioticcs and heparin were given, SCDs applied. General anesthesia was induced and the patient was intubated. He was positioned in high lithotomy. Urology placed ureteral stents (please see their note for furter detail). Once they were done the abdomen was prepped and draped in the standard sterile fashion. We began by accessing the abdomen with a Jorge technique superior to the umbilicus. We insulfated the abdomen without issue. On inspection, the sigmoid was inflammed and adhered to the pelvic side wall and anterior abdominal wall. We placed an additional 3x 5mm ports and began our splenic flexure mobilization. We entered lesser sac, came around the splenic flexure and white line of toldt. Once we were closed to the inflammed area, we made the decision to open as the tissue was hard, friable and the planes were impossible to tell. A midline incision was made and the sigmoid colon was bluntly dissected free from the anterior abdominal wall. There was pus everywhere. An irais retractor was placed and the Book Jarad was set up. We started by bluntly dissecting the sigmoid from the pelvic side wall. There was a notable loop of small bowel adhered to the colon - the mesentery of the small bowel had walled off an abscess. The small bowel was bluntly dissected free and packed in the upper abdomen. We chose our proximal transection point and transected the proximal colon. We then continued to dissect the sigmoid free from the surrounding structures, ensuring the ureter was protected. We then chose our distal transection spot on the rectum at a soft spot and transected this location with a contour stapler. The specimen was passed off the feild and hemostasis was obtained. The abdomen was throuoghly irrigated. The proximal staple line was removed and the anvil was sewn into place with a purse string. Dr. Poon went below and passed sizers through the anus to the rectal stump - they went easily. The EEA stapler was inserted and the spike was deployed at the top of the rectal stump. The anvil from the proximal bowel was inserted to the spike and the EEA was fired. We had two very healthy anastamotic donuts and a negative leak test. Again, the abdomen was irrigated and hemostasis was obtained. The small bowel was run from the LOT to the TI and found to be healthy. Again, there was some bleeding in the jejunal mesentery 2/2 inflamation as it had walled off an abscess in the pelvis - the bowel however looked healthy and intact. Roughly 30cm from the TI we brought up a loop of ileum through the abdominal wall for our diverting ostomy. A drain was placed in the pelvis and the abdomen was closed- fascia with suture and skin with jeannine. An island dressing was placed and the drain was stitched in place. We then matured our diveriting loop ileostomy in a Brooked fashion. A debriefing was performed and counts were correct. The patient was extubated and taken to PACU in stable condition. Chapito Henao MD CRS Fellow /es/ CHAPITO Henao MD. Colorectal Fellow Signed: 07/03/2024 13:48 CHAPITO HENAO [facility] Jul 03, 2024 01:27 PM NURSING TRANSFER SUMMARIZATION NOTE: LOCAL TITLE: [facility] PACU TRANSFER NOTE STANDARD TITLE: NURSING TRANSFER SUMMARIZATION NOTE DATE OF NOTE: JUL 03, 2024@13:27 ENTRY DATE: JUL 03, 2024@13:27:13 AUTHOR: NAI HURD COSIGNER: URGENCY: STATUS: COMPLETED [facility] PACU TRANSFER NOTE Has ADDENDA PACU Transfer Note Status Post: Open sigmoidectomy with colorectal anstamosis and diveriting loop ileostomy Code Status: Full Code FULL Patient's Infection Control Status: Pertinent History: 73 yo male with PMHx of HTN, HLD, CAD s/p EVIE x2 (pRCA & mRCA) in 2015, HFpEF, bilateral GAIL aneurysms (2.0 cm on right, 2.1 cm on left 05/05/24), 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 Anesthesia Type: General, Regional Block If block used estimated time to wear off: 24 Hrs. Estimated Blood Loss: 50 Crystalloid (OR/PACU): 1300 UOP: 225ml in OR Medications Given in OR: Zofran 4mg Decadron 12mg Fentanyl 200mcg Hydromorphone 1.4mg Cefazolin 4gm Metronidazole 500mg Acetaminophen 1000mg at 0820 Medications Given in PACU: Nitroglycerin 200mcg, last 100mcg at 1435 Diazepam 2.5mg for bladder spasming at 1420 Hydromorphone 0.3mg at 1415 for abdominal pain Ondansetron 4mg at 1350 Prochloperazine 5mg at 1440 Discharging Anesthesiologist: Christiano Current Vital Signs: Temperature:36 C BP: 178/85-185/61, HR: 58-->SURGEON NOTIFIED OF NEED OF HOME BP MEDS AND PRN IV MEDS FOR HYPERTENSION. Respiratory Rate: 17 Oxygen Saturation: 94% Heart Rhythm: SR w/ BBB and 1AVB Pain: Biggest complaint is bladder spasming and perception of needing to poop. Explained sensation likely from catheter. Neuro: Oriented x4, SINGER, mostly cooperative in PACU. CV: Hypertensive at baseline, preop was 160-190s, HR 50s in SR w/ 1AVB and BBB. All extremities are warm. Surgeon aware of HTN in PACU 14s-190s/60-80s that was treated w/ nitroglycerin x2; stated will order home losartan and metoprolol as well as IV PRNs. Respiratory: Nonlabored breathing on RA, 93-94%. GI: Nausea upon wake up w/ NO emesis, resolved w/ ondansetron initially, then it returned and was treated w/ prochlorperazine. Explained that nausea might persist d/t nature of surgery and anesthesia. RLQ stoma is pink w/ serosang drainage. : UOP 225ml in OR and 100ml in PACU. Dressings: Midline silverlon C/D/I, 2 lap sites CHANI glued and approximated. JUAN site CHANI, drain sutured in. Drains: JUAN w/ 120ml serosang drainage, site intact, sutures. Transfer to: [facility] Condition: Stable /jerome HURD RN STAFF NURSE Signed: 07/03/2024 15:00 07/03/2024 ADDENDUM STATUS: COMPLETED 1000mg acetaminophen + 0.4mg hydromoprphone given at 1545 for belly ache that patient is now beginning to feel; rated it as moderate. Additional 0.3mg hydromophone given at 1600 for 6/10 belly ache as well as 5mg IV hydralazine for BP of 177/84, HR 48. /jerome HURD RN STAFF NURSE Signed: 07/03/2024 15:55 07/03/2024 ADDENDUM STATUS: COMPLETED Pt slept from [id number] consistently; pain and BP did creep up to 6/10 and 210/82-->additional 5mg hydralazine given at 1645, 0.3mg hydromorphone at 1645, 5mg oxycodone + 500mg methocarbamol at 1655. BP at 1700: 162/72. /jerome HURD RN STAFF NURSE Signed: 07/03/2024 17:02 NAI HURD [facility] Jul 03, 2024 11:25 AM NURSING OPERATIVE NOTE: LOCAL TITLE: INTRAOPERATIVE NURSING NOTE STANDARD TITLE: NURSING OPERATIVE NOTE DATE OF NOTE: JUL 03, 2024@11:25 ENTRY DATE: JUL 03, 2024@11:25:30 AUTHOR: NIMO KILGORE COSIGNER: URGENCY: STATUS: COMPLETED Intraoperative Nursing Note Part (A) Pre-op Check: Code Status: Full Code Location Pre-operative interview completed [facility] See [facility] Nursing Note in CPRS Part (B) Preoperative Assessment: Patient stated full name: Yes Patient stated full social security number and/or date: Yes Patient stated procedure as: the colon and pancreas - taking out the rotten colon Correct site(s) marked with provider's initials: Yes; multiple sites marked with provider's initials specifically: Cystoscopy wristband, abdomen initialed with additional time outs taken prior to each incision. Patient was NPO since midnight: Yes Allergies: TERAZOSIN (Mar 13, 2015) Implantable electronic devices: (i.e. pacemaker, ICD, DCS, etc.) No Metal, implants, artificial joints or shrapnel in body? No Does patient have any valuables or belongings in OR? No Skin intact: Yes Tattoos identified: None present Patient's physical limitations were identified pertinent to procedural positioning or patient care demands: No physical limitation identified. Tubes/drains/vacuum dressings/appliances were present preoperatively: No Patient accompanied today: No: arriving later: Esmer Significant Other [phone] Part (C) Intraoperative Assessment: Intraoperative positioning Type of position: Lithotomy with right arm tucked Type & location of positioning equipment: Pt self-transferred to OR table with assist x3. Patient positioned on pink foam pad. Head positioned and placed on gel donut per anesthesia. Safety strap secured across chest. SCDs placed and activated prior to intubation. Legs simultaneously placed in lithotomy stirrups. Left arm wrapped, padded and secured at side with draw sheet and blue towel. Left arm out on arm board padded with gel pad, padded and secured per anesthesia personnel. Proper body anesthesia staff. Personnel & title of those who positioned the patient: See [employer] A fire risk assessment was performed utilizing the Association of perioperative Registered Nurses (AORN) Fire Risk Assessment Tool. The [facility] Operating Room Perioperative Plan of Care for fire safety was implemented. Yes: An alcohol-based skin antiseptic or other flammable solution was used intraoperatively. The actions taken were: Nonflammable packaging with unit dosed applicators utilized. Towels used to absorb excess solution to prevent pooling of skin prep solutions on or around patient. Excessive solution removed by sterile towel including any pooling that may have occurred. Solution-soaked material removed from the sterile field prior to draping and use of electrosurgery, cautery, or a laser. Solutions allowed to dry completely per iron assorter guidelines and fumes to dissipate prior to draping and use of surgical equipment. An electrosurgical unit (ESU) or high temperature cautery was used: Cord inspected prior to use; free of stress, kinks, knots, or bends. ESU active electrode kept away from open sourced oxygen and nitrous oxide. ESU activated only by the person controlling the active electrode. Power setting used was the lowest possible to achieve desired results. Safety holster used for the active electrode when not in use. Surgical drape/linen kept away from the activated ESU. Ignition source was not used to enter bowel distended with gas. Flammable agents allowed to dry completely per iron assorter guidelines and fumes to dissipate prior to use of ESU. Active electrode kept clean and used per iron assorter's recommendations. A fiber optic light was used Light cables inspected for broken light bundles before use. Light source placed in standby mode or turned off when the cable was not in use. All fiber optic light cables connected before activating the light source. The working end of the endoscope placed on a moist towel or away from drapes, sponges or flammable materials. GloShield in place with Endoscopes Patient is undergoing a cardiothoracic procedure: No: Flexible endoscope used intraoperatively: Scope Model #: Storz Cystoscope Scope Serial #: [id number] An indwelling urinary catheter was placed intraoperatively: Yes: a 16 Yemeni/10cc indwelling urinary catheter to drainage was inserted by Dr Suarez /alexi/ Nimo Kilgore gerontological nurse practitioner Nurse, OR Signed: 07/03/2024 11:45 NIMO KILGORE [facility] Jul 03, 2024 09:57 AM SURGERY NOTE: LOCAL TITLE: SURGERY OR NOTE STANDARD TITLE: SURGERY NOTE DATE OF NOTE: JUL 03, 2024@09:57 ENTRY DATE: JUL 03, 2024@09:57:40 AUTHOR: CHRISTINE FRIAS EXP COSIGNER: URGENCY: STATUS: COMPLETED PREOPERATIVE DIAGNOSIS: Diverticulitis POSTOPERATIVE DIAGNOSIS: Same PROCEDURES PERFORMED: 1. Cystourethroscopy. 2. Bilateral placement of 5Fr open-ended catheters STAFF SURGEON: Howie Grider MD RESIDENT: Christine Frias MD ANESTHESIA: General ESTIMATED BLOOD LOSS: none COMPLICATIONS: None. BRIEF OPERATIVE INDICATIONS: Flaca Weaver is a 73yoM undergoing laparoscopic, possible open, sigmoid colectomy for sigmoid diverticulitis. They have requested placement of bilateral ureteral stents for better ureteral identification during their dissection. DESCRIPTION OF PROCEDURE: After full informed voluntary consent was obtained, the patient was transported to the operating room, placed supine on the table. After adequate anesthesia was induced, the patient was placed in the lithotomy position and prepped and draped in the usual sterile fashion. A timeout was taken to confirm correct patient, procedure and laterality. The case was started by inserting a 22-Yemeni rigid cystoscope sheath and 30- degree angle lens. The urethra was unremarkable. The prostate was mildly enlarged, with a high bladder neck. Once in the urinary bladder, media was clear and the bladder was grossly normal. The right ureteral orifice was cannulated with a 5Fr open-ended ureteral catheter with the aid of a guidewire. The catheter was advanced over the wire up to the renal pelvis without resistance. We repeated the same process on the contralateral side. The scope was removed. A urethral tracey catheter was placed with 10cc inflated into the balloon. This required placement over a wire, likely because of the high bladder neck and the two open-ended catheters in place. The case was turned over to the primary surgical service. The will notify us if there is any concern about the ureters /es/ CHRISTINE FRIAS MD RESIDENT Signed: 07/03/2024 10:10 CHRISTINE FRIAS [facility] Jul 03, 2024 08:33 AM SURGERY NURSING OPERATIVE NOTE: LOCAL TITLE: NURSE INTRAOPERATIVE REPORT STANDARD TITLE: SURGERY NURSING OPERATIVE NOTE DATE OF NOTE: JUL 03, 2024@08:33 ENTRY DATE: JUL 03, 2024@13:32:36 AUTHOR: NIMO KILGORE EXP COSIGNER: URGENCY: STATUS: COMPLETED SUBJECT: Case #: [id number] Operating Room: OR5 Surgical Priority: ELECTIVE Patient in Hold: NOT ENTERED Patient in OR: JUL 03, 2024 08:33 Operation Begin: JUL 03, 2024 09:18 Operation End: JUL 03, 2024 09:32 Patient Out OR: JUL 03, 2024 13:32 Major Operations Performed: Primary: Cystoscopy, Bilateral Ureteral Stent Placement Robotic Assistance (Y/N): NO Wound Classification: CLEAN/CONTAMINATED Operation Disposition: JUNG Discharged Via: STRETCHER Primary Surgeon: CHARITO SUAREZ School Bus Driver/Teacher Assistant: CHRISTINE FRIAS Attending Surgeon: CHARITO SUAREZ Assist: N/A OR Support Personnel: Scrubbed Circulating Fani SOLANO () NIMO KILGORE () KENJI FOWLER () Preop Mood: ANXIOUS Preop Consc: ALERT-ORIENTED Preop Skin Integ: INTACT Preop [place]: N/A --- Time Out Checklist --- Confirm Correct Patient Identity: YES Confirm Procedure To Be Performed: YES Confirm Site of the Procedure, Including Laterality: YES Confirm Valid Consent: YES, PAPER Confirm Patient Position: YES Confirm Procedure Site has been Marked Appropriately and that the Site of the Jessica is Visible After Prep and Draping: YES Pertinent Medical Images Have Been Confirmed: N/A Correct Medical Implant(s) is Available: YES Availability of Special Equipment: YES Appropriate Antibiotic Prophylaxis: YES Appropriate Deep Vein Thrombosis Prophylaxis: YES Blood Availability: YES Checklist Comment: NO COMMENTS ENTERED Time-Out Document Completed By: NIMO KILGORE Time-Out Completed: JUL 03, 2024@09:18 Preop Surgical Site Hair Removal by: N/A Surgical Site Hair Removal Method: NO HAIR REMOVED Hair Removal Comments: NO COMMENTS ENTERED Surgery Position(s): Lithotomy Placed: N/A Electrocautery Unit: [id number] ESU Coagulation Range: N/A ESU Cutting Range: N/A Electroground Position(s): LEFT ANT THIGH Anesthesia Technique(s): GENERAL Tubes and Drains: ureteral stents x2 Irrigation Solution(s): NORMAL SALINE Time Used: JUL 03, 2024 07:15 Amount: per MD Provider: CHARITO SUAREZ Possible Item Retention: * NOT ENTERED * Sponge Final Count Correct: NOT APPLICABLE Sharps Final Count Correct: NOT APPLICABLE Instrument Final Count Correct: NOT APPLICABLE Wound Sweep: YES Wound Sweep Comment: Wound sweep performed by surgeon prior to procedure end. Opsite viewed through scope camera by surgeon. Intra-Operative X-Ray: NO Intra-Operative X-Ray Comment: Case deemed virtually impossible to retain surgical items/instruments Dressing: NA Packing: NONE Blood Loss: 0 ml Urine Output: Postoperative Mood: RELAXED Postoperative Consciousness: RESTING Postoperative Skin Integrity: SAME PREOP Sequential Compression Device: YES Immediate Use Steam Sterilization Episodes: Contamination: 0 SPS Processing/OR Management Issues: 0 Emergency Case: 0 No Better Option: 0 Loaner or Short Notice Instrument: 0 Decontamination of Instruments Contaminated During the Case: 0 Nursing Care Comments: See CPRS nursing note /alexi/ Nimo Kilgore RN Staff Nurse, OR Signed: 07/03/2024 13:43 NIMO KILGORE [facility] Jul 03, 2024 08:33 AM SURGERY NURSING OPERATIVE NOTE: LOCAL TITLE: NURSE INTRAOPERATIVE REPORT STANDARD TITLE: SURGERY NURSING OPERATIVE NOTE DATE OF NOTE: JUL 03, 2024@08:33 ENTRY DATE: JUL 03, 2024@13:32:35 AUTHOR: NIMO KILGORE EXP COSIGNER: URGENCY: STATUS: COMPLETED SUBJECT: Case #: [id number] Operating Room: OR5 Surgical Priority: ELECTIVE Patient in Hold: NOT ENTERED Patient in OR: JUL 03, 2024 08:33 Operation Begin: JUL 03, 2024 10:02 Operation End: JUL 03, 2024 13:12 Patient Out OR: JUL 03, 2024 13:32 Major Operations Performed: Primary: laproscopic converted to open sigmoid colectomy, splenic flexure mobilization, diverting loop ileostomy, flexable sigmoidoscopy Robotic Assistance (Y/N): NO Wound Classification: DIRTY/INFECTED Operation Disposition: JUNG Discharged Via: STRETCHER Primary Surgeon: WENCESLAO POON School Bus Driver/Teacher Assistant: CHAPITO HENAO Attending Surgeon: WENCESLAO POON Second Assist: LEI LAW Other Scrubbed Assistants: RENEE RICHARDSON MOLLY OR Support Personnel: Scrubbed Circulating Fani SOLANO () NIMO KILGORE () KENJI FOWLER () Ronnie SPEARS () MERY SANDOVAL () DAVID NUR () Preop Mood: ANXIOUS Preop Consc: INTUBATED Preop Skin Integ: INTACT Preop [place]: N/A --- Time Out Checklist --- Confirm Correct Patient Identity: YES Confirm Procedure To Be Performed: YES Confirm Site of the Procedure, Including Laterality: YES Confirm Valid Consent: YES, i-MED Confirm Patient Position: YES Confirm Procedure Site has been Marked Appropriately and that the Site of the Jessica is Visible After Prep and Draping: YES Pertinent Medical Images Have Been Confirmed: N/A Correct Medical Implant(s) is Available: YES Availability of Special Equipment: YES Appropriate Antibiotic Prophylaxis: YES Appropriate Deep Vein Thrombosis Prophylaxis: YES Blood Availability: YES Checklist Comment: NO COMMENTS ENTERED Time-Out Document Completed By: NIMO KILGORE Time-Out Completed: JUL 03, 2024@10:02 Skin Prep By: NIMO KILGORE Skin Prep Agent: CHLORAPREP Skin Prep By (2): N/A 2nd Skin Prep Agent: BETADINE Preop Surgical Site Hair Removal by: WENCESLAO POON Surgical Site Hair Removal Method: CLIPPER Hair Removal Comments: NO COMMENTS ENTERED Surgery Position(s): Lithotomy Placed: N/A Electrocautery Unit: [id number] ESU Coagulation Range: 0-30 ESU Cutting Range: 0-30 Electroground Position(s): LEFT ANT THIGH Material Sent to Laboratory for Analysis: Specimens: 1:Sigmoid Colon/PERM/LLR/Dr. Poon 2:Anastomotic Rings/PERM/MMF/Dr. Poon Cultures: N/A Anesthesia Technique(s): GENERAL Tubes and Drains: JUAN closed suction x 1, colostomy bag Irrigation Solution(s): NORMAL SALINE Time Used: JUL 03, 2024 09:30 Amount: per MD Provider: WENCESLAO POON Possible Item Retention: * NOT ENTERED * Sponge Final Count Correct: YES Sharps Final Count Correct: YES Instrument Final Count Correct: YES Wound Sweep: YES Wound Sweep Comment: performed prior to wound closure by surgeons per [place] policy Intra-Operative X-Ray: NO Intra-Operative X-Ray Comment: not indicated per [place] policy Counter: NIMO KILGORE Counts Verified By: LAURA SOLANO Dressing: silverlon Packing: NONE Blood Loss: 50 ml Urine Output: Postoperative Mood: RELAXED Postoperative Consciousness: RESTING Postoperative Skin Integrity: FRESH INCISION Sequential Compression Device: YES Immediate Use Steam Sterilization Episodes: Contamination: 0 SPS Processing/OR Management Issues: 0 Emergency Case: 0 No Better Option: 0 Loaner or Short Notice Instrument: 0 Decontamination of Instruments Contaminated During the Case: 0 Nursing Care Comments: See CPRS nursing note /es/ Nimo Kilgore gerontological nurse practitioner Nurse, OR Signed: 07/03/2024 13:43 NIMO KILGORE [facility] Jul 03, 2024 08:33 AM OPERATIVE REPORT: LOCAL TITLE: OPERATION REPORT STANDARD TITLE: OPERATIVE REPORT DATE OF NOTE: JUL 03, 2024@08:33 ENTRY DATE: JUL 03, 2024@13:32:35 SURGEON: CHAPITO HENAO ATTENDING: WENCESLAO POON URGENCY: STATUS: COMPLETED SUBJECT: Case #: [id number] Attending: Yovanny Poon MD Fellow: Chapito Henao MD Preoperative Diagnosis: complicated diverticulitis - perforation with abscess, no bleeding Postoperative Diagnosis: complicated diverticulitis - perforation with purluent peritonitis Procedure: Laparoscopic converted to open splenic flexure mobilizations, sigmoidectomy with colorectal anstamosis and diveriting loop ileostomy. Specimen: Sigmoid. EBL: 50 mL. Findings: - Severely inflamed sigmoid colon adhered to abdominal wall and pelvic side wall. - Walled off pockets of pus including a cavity within the small bowel mesentery. Indications: Mariano Weaver is a 73M with complex diverticulitis who presents for surgical resection. Description: Mariano was identified in the preop area and the risks, benefits and alternatives to surgery were discussed. Consent was obtained and he was taken to the OR. A time out was performed and antibiotics and heparin were given, SCDs applied. General anesthesia was induced and the patient was intubated. He was positioned in high lithotomy. Urology placed ureteral stents (please see their note for furter detail). Once they were done the abdomen was prepped and draped in the standard sterile fashion. We began by accessing the abdomen with a Jorge technique superior to the umbilicus. We insufflated the abdomen without issue. On inspection, the sigmoid was inflammed and adhered to the pelvic side wall and anterior abdominal wall. We placed an additional 3 x 5 mm port and began our splenic flexure mobilization. We entered lesser sac, came around the splenic flexure and white line of Toldt. Once we were close to the inflammed area, we made the decision to open as the tissue was hard, friable and the planes were impossible to tell. A midline incision was made and the sigmoid colon was bluntly dissected free from the anterior abdominal wall. There was pus everywhere. An irais retractor was placed and the Bookwalter was set up. We started by bluntly dissecting the sigmoid from the pelvic side wall. There was a notable loop of small bowel adhered to the colon - the mesentery of the small bowel had walled off an abscess. The small bowel was bluntly dissected free and packed in the upper abdomen. We chose our proximal transection point and transected the proximal colon. We then continued to dissect the sigmoid free from the surrounding structures, ensuring the ureter was protected. We then chose our distal transection spot on the rectum at a soft spot and transected this location with a contour stapler. The specimen was passed off the feild and hemostasis was obtained. The abdomen was throuoghly irrigated. The proximal staple line was removed and the anvil was sewn into place with a purse string. Dr. Poon went below and passed sizers through the anus to the rectal stump - they went easily. The EEA stapler was inserted and the spike was deployed at the top of the rectal stump. The anvil from the proximal bowel was inserted to the spike and the EEA was fired. We had two very healthy anastamotic donuts and a negative leak test. Again, the abdomen was irrigated and hemostasis was obtained. The small bowel was run from the LOT to the TI and found to be healthy. Again, there was some bleeding in the jejunal mesentery 2/2 inflamation as it had walled off an abscess in the pelvis - the bowel however looked healthy and intact. Roughly 30cm from the TI we brought up a loop of ileum through the abdominal wall for our diverting ostomy. A drain was placed in the pelvis and the abdomen was closed - fascia with suture and skin with jeannine. An island dressing was placed and the drain was stitched in place. We then matured our diveriting loop ileostomy in a brooked fashion. A debriefing was performed and counts were correct. The patient was extubated and taken to PACU in stable condition. /alexi/ WENCESLAO POON MD STAFF SURGEON, COLON/RECTAL Signed: 07/06/2024 14:13 for CHAPITO Henao MD. Colorectal Fellow /alexi/ WENCESLAO POON MD STAFF SURGEON, COLON/RECTAL Cosigned: 07/06/2024 14:13 WENCESLAO POON [facility] Jul 03, 2024 08:33 AM OPERATIVE REPORT: LOCAL TITLE: OPERATION REPORT STANDARD TITLE: OPERATIVE REPORT DATE OF NOTE: JUL 03, 2024@08:33 ENTRY DATE: JUL 03, 2024@14:11:04 SURGEON: CHRISTINE FRISA ATTENDING: HOWIE GRIDER URGENCY: STATUS: COMPLETED SUBJECT: Case #: [id number] PREOPERATIVE DIAGNOSIS: Diverticulitis. POSTOPERATIVE DIAGNOSIS: Same. PROCEDURES PERFORMED: 1. Cystourethroscopy. 2. Bilateral placement of 5-Fr open-ended catheters. STAFF SURGEON: Howie Grider MD RESIDENT: Christine Frias MD ANESTHESIA: General. ESTIMATED BLOOD LOSS: None. COMPLICATIONS: None. BRIEF OPERATIVE INDICATIONS: Flaca Weaver is a 73yoM undergoing laparoscopic, possible open, sigmoid colectomy for sigmoid diverticulitis. They have requested placement of bilateral ureteral stents for better ureteral identification during their dissection. DESCRIPTION OF PROCEDURE: After full informed voluntary consent was obtained, the patient was transported to the operating room, placed supine on the table. After adequate anesthesia was induced, the patient was placed in the lithotomy position and prepped and draped in the usual sterile fashion. A timeout was taken to confirm correct patient, procedure and laterality. The case was started by inserting a 22-Yemeni rigid cystoscope sheath and 30-degree angle lens. The urethra was unremarkable. The prostate was mildly enlarged, with a high bladder neck. Once in the urinary bladder, media was clear and the bladder was grossly normal. The right ureteral orifice was cannulated with a 5-Fr open-ended ureteral catheter with the aid of a guidewire. The catheter was advanced over the wire up to the renal pelvis without resistance. We repeated the same process on the contralateral side. The scope was removed. A urethral tracey catheter was placed with 10 cc inflated into the balloon. This required placement over a wire, likely because of the high bladder neck and the two open-ended catheters in place. The case was turned over to the primary surgical service. They will notify us if there is any concern about the ureters. /alexi/ CHRISTINE FRIAS MD RESIDENT Signed: 07/03/2024 14:20 /alexi/ HOWIE GRIDER MD STAFF SURGEON Cosigned: 07/05/2024 08:09 CHRISTINE FRIAS [facility] Jul 03, 2024 08:27 AM SURGERY NURSING NOTE: LOCAL TITLE: SURGERY CENTER NURSING NOTE STANDARD TITLE: SURGERY NURSING NOTE DATE OF NOTE: JUL 03, 2024@08:27 ENTRY DATE: JUL 03, 2024@07:23:20 AUTHOR: LIA RUSH COSIGNER: URGENCY: STATUS: COMPLETED [facility] Nursing Note Pre-Op Date/time in: Jun@06:00 Patient Identification: verbal, ID band on, Allergies verified The patient reports no COVID-19 diagnosis. The patient reports not waiting for the results of a COVID-19 lab test. The patient reports no fever. The patient reports no new or worsening cough or shortness of breath. The patient reports no cold or flu-like symptoms. The patient reports no new onset of diarrhea, nausea or vomiting. The patient reports no new onset of headache, loss of taste or loss of smell. The patient reports no exposure to someone with COVID-19 within the past 2 weeks. Result: Screen is negative. COVID-19 Immunization Status The patient has had a vaccination for COVID-19. Does patient consent to having their name included in the hospital directory? (So that hospital staff may acknowledge that the patient is in the hospital and give relatives/friends general information regarding their status) Participant(s) statement of procedure: remove part of my colon and stents with urology Responsible person with patient today: EsmerJHON, NA: Patient being admitted: Allergies: TERAZOSIN (Mar 13, 2015) Vital Signs Pain: 0 (07/03/2024 06:30) Pain location: denies Temperature: 98.5 F [36.9 C] (07/03/2024 06:30) Blood Pressure: 160/70 (07/03/2024 06:30) Pulse: 48 (07/03/2024 06:30) Respirations: 14 (07/03/2024 06:30) O2 Saturation: 95% (07/03/2024 06:30) 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, BBB, prolonged QT Patient instructed on use of pain scale: Yes Verbalizes understanding: Yes Does patient have chronic pain: No Code Status: Full Code Surgical consent signed within 60 days: Yes Correct Surgical Site Marked or ID band labeled with surgical procedure: Yes Staff Note Within 24 Hours: Yes History and Physical Within 30 Days: Yes History and Physical updated within 24hrs of surgery: Yes Participant(s) instructed on perioperative plan of care: Yes Verbalizes understanding: Yes Relevant preoperative emotional, spiritual, safety and psychological needs met: Yes Finger Stick Blood Glucose: NA: PT/INR: NA: Neuro assessment: alert, oriented Detail specific neuro deficits in comment box: Pre-procedure skin prep done by patient?: Yes SKIN PROBLEMS Other: Location(s): bruising bilateral arms, juan drain in place left lower quardant PRE-EXISTING IV: No pre-existing Maty-Cath, Carney or Picc. Obtained information below from: Patient NPO since midnight: Yes Pre-Procedure medications: Did patient take preordered oral antibiotic prior to arrival: Yes Neomycin Sulfate taken as prescribed DVT Prophylaxis Pneumatic compression Heparin (dose/route/time given) 5000 units, SQ, 0737hrs Nursing action on preordered medication prior to surgery: Pre-Op IV Antibiotic Sent with patient to OR marcel vick Does the patient have an active order for a beta rina, (e.g., metoprolol, atenolol, etc): No Is patient taking any anticoagulation, any antiplatelet agent, any thrombin inhibitor or thrombolytic agent? (This includes ASA, Heparin drip, or SQ injection): No Does the patient have on any medication patches: No Does the patient have any implantable device (e.g. pacemaker, infusion pump, nerve stimulator, etc...) No Location of patients personal items: All personal belongings locked in surgery center locker room. Medication reconciliation completed by nurse: Yes IV insertion: Site: other: deferred to anesthesia Gauge: Blood products available: Type and Screen (within 3 days) Surgery specific assessment: /alexi/ SAMMY WOLFF, RN REGISTERED NURSE Signed: 07/03/2024 08:27 LIA RUSH [facility] Jul 03, 2024 08:15 AM SURGERY H & P NOTE: LOCAL TITLE: H&P SURGICAL UPDATE STANDARD TITLE: SURGERY H & P NOTE DATE OF NOTE: JUL 03, 2024@08:15 ENTRY DATE: JUL 03, 2024@08:15:39 AUTHOR: WENCESLAO POON COSIGNER: URGENCY: STATUS: COMPLETED The patient was assessed prior to anesthesia induction on the day of surgery and no change in patient condition was noted. /jerome POON MD STAFF SURGEON, COLON/RECTAL Signed: 07/03/2024 08:15 WENCESLAO POON [facility] Jul 03, 2024 08:14 AM SURGERY ATTENDING PRE OPERATIVE E & M NOTE: LOCAL TITLE: PRE-OP SURGERY STAFF NOTE STANDARD TITLE: SURGERY ATTENDING PRE OPERATIVE E & M NOTE DATE OF NOTE: JUL 03, 2024@08:14 ENTRY DATE: JUL 03, 2024@08:14:19 AUTHOR: WENCESLAO POON EXP COSIGNER: URGENCY: STATUS: COMPLETED Pre-Operative Staff Note Diagnosis/findings: sigmoid diverticulitis Planned Procedure: laparoscopic possible open sigmoid colectomy Case discussed with resident, patient seen and examined. Pertinent history, imaging and pathology reports reviewed. Patient informed of alternatives, risks and benefits. Agree with diagnosis, findings, preoperative assessment and planned procedure or treatment plan. No data available for: LIFE-SUSTAINING TREATMENT Life Sustaining Treatment Orders /jerome POON MD STAFF SURGEON, COLON/RECTAL Signed: 07/03/2024 08:14 WENCESLAO POON [facility] Jul 03, 2024 07:45 AM ANESTHESIOLOGY NOTE: LOCAL TITLE: ANESTHESIA PRE-EVALUATION NOTE STANDARD TITLE: ANESTHESIOLOGY NOTE DATE OF NOTE: JUL 03, 2024@07:45 ENTRY DATE: JUL 03, 2024@07:45:30 AUTHOR: JESSICA ALVARADO EXP COSIGNER: URGENCY: STATUS: COMPLETED Pre-Anesthesia Evaluation FLACA WEAVER identified by name and . 73 year old MALE. Surgery Scheduled Date/Time: Jul 03, 2024 Procedure: Laparoscopic Sigmoidectomy with ICG SCOPES and bilateral ureteral stents Pre-Op Diagnosis: Diverticulitis Date/Time: Jul 03, 2024 Procedure: Cystoscopy, Bilateral Ureteral Stent Placement Pre-Op Diagnosis: Diverticulitis MEDICAL HISTORY: Active problems - Computerized Problem [...] . No additional CRC surveillance recommended by financial analysis consultant. 9. Decreased vitamin D - 02.24.2017 [...] - By 02.13.[address] 03.14.2020 OSH(ED [place], [place]): Pt. Declined Admission. 03.14.2020 CT with Mild Sigmoid diverticulitis. 04.23.2020 ED([facility]): Declined admission. 17. 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 18. Ex-tobacco user 19. Impaired Fasting Glucose (SCT [id number]) - 02.26.2014 A1c 5.8%. 20. Adrenal mass [...] 24. Hiatal hernia 25. Shoulder Pain ([facility] [id number]) 26. Trigger finger 27. [facility] - [facility] Primary: Dr. Cathi Simeon, [place] [address]. SURGICAL HISTORY (WITH ANESTHESIA DETAILS AVAILABLE): JUL 03, 2024 Proc: Cystoscopy, Bilateral Ureteral Stent Placement JUL 03, 2024 Proc: Laparoscopic Sigmoidectomy with ICG SCOPES and bilateral ureteral stents SEP 03, 2015 Proc: EUA, Hemorrhoidectomy SEP 02, 2014 Proc: left median nerve decompression ALLERGIES: TERAZOSIN (Mar 13, 2015) MEDICATIONS: Active and Recently Outpatient Medications (excluding Supplies): Active Outpatient Medications Status 1) ACETAMINOPHEN 500MG TAB TAKE TWO TABLETS BY MOUTH ACTIVE THREE TIMES A DAY NEEDED FOR PAIN FOR PAIN 2) AMOXICILLIN 875/CLAV K 125MG TAB TAKE 1 TABLET BY ACTIVE MOUTH TWICE A DAY INFECTION 3) ATORVASTATIN CALCIUM 40MG TAB TAKE ONE-HALF TABLET BY ACTIVE MOUTH AT BEDTIME FOR CHOLESTEROL 4) DOCUSATE NA 50MG/SENNOSIDES 8.6MG TAB TAKE 1 TABLET ACTIVE BY MOUTH AT BEDTIME FOR CONSTIPATION 5) EMPAGLIFLOZIN 25MG TAB TAKE ONE-HALF TABLET BY MOUTH ACTIVE EVERY DAY 6) FUROSEMIDE 20MG TAB TAKE ONE TABLET BY MOUTH EVERY ACTIVE DAY FOR EXCESS FLUID 7) HCTZ 12.5/LISINOPRIL 10MG TAB TAKE ONE HALF TABLET BY ACTIVE MOUTH EVERY DAY FOR BLOOD PRESSURE 8) IBUPROFEN 600MG TAB TAKE ONE TABLET BY MOUTH THREE ACTIVE TIMES A DAY NEEDED FOR PAIN 9) ISOSORBIDE MONONITRATE 30MG SA TAB TAKE ONE TABLET BY ACTIVE MOUTH EVERY DAY FOR CHEST PAIN 10) NITROFURANTOIN MONO/MACRO 100MG SA CAP TAKE [...] MOUTH ACTIVE EVERY DAY FOR BLOOD PRESSURE Inactive Outpatient Medications Status 1) COLON ELECTROLYTE LAVAGE PWD FOR SOLN TAKE 1 CONTAINER (4 LITERS) BY MOUTH ONCE PRE-OP FOR COLO-RECTAL SURGERY - INSTRUCTION SHEET MAILED FROM CLINIC 2) NEOMYCIN SULFATE 500MG TAB TAKE TWO TABLETS BY MOUTH THREE TIMES A DAY PREOP AT 1PM, 2PM AND 11PM ON THE DAY BEFORE COLORECTAL SURGERY (TAKE ALONG WITH METRONIDAZOLE) 3) SODIUM CHLORIDE 0.9% PF INJ SYR 10ML INJECT 10 ML TOPICALLY DIRECTED FOR IRRIGATION FOR WOUND CLEANSING 16 Total Medications Active Inpatient Medications (including Supplies): No Medications Found MEDICATIONS TAKEN TODAY: BCMA MEDS GIVEN TODAY - NONE FOUND Chronic Opioid Use: No Naltrexone Use: No Buprenorphine Use: No SOCIAL HISTORY: Tobacco Use: Yes, Alcohol Use: Yes, Substance Use: Yes, REVIEW OF SYSTEMS: METS: 4 to 6 Cardiac: CAD OR Chest Pain Respiratory: COPD JUANJOSE Neurologic: Small unchanged Cerebrovascular Anesurysms GERD: uncontrolled PTSD: No Prior History of Anesthesia Complications: No PHYSICAL EXAM: Weight: 205.6 lb [93.26 kg] (07/03/2024 06:30) Height: 70 in [177.8 cm] (06/08/2024 11:43) BMI: 29.6 Blood Pressure: 160/70 (07/03/2024 06:30) Pulse: 48 (07/03/2024 06:30) Pulse Oximetry: 95% (07/03/2024 06:30) Respiration: 14 (07/03/2024 06:30) Temperature: 98.5 F [36.9 C] (07/03/2024 06:30) Mallampati: II Mouth Opening: >3cm Thyromental: > 4cm Neck: full range of motion, limited range of motion Dentition: Lower dentures Cardiac: regular Murmur Pulmonary: Diminished Neurologic: Alert, Awake, Pleasant LABS SODIUM 135 L (10/27/24) POTASSIUM 3.6 (06/24/24) CHLORIDE 103 (06/24/24) CO2 24 (06/24/24) GLUCOSE 135 H (06/24/24) UREA NITROGEN 13 (06/24/24) CREATININE 0.8 (06/24/24) EGFR (04/01) 07/10/2021@0641 74 CREATININE EGFR (CKD-EPI) 06/24/2024@0530 >90 WBC 15.8 H (07/03/24) HGB 16.1 (07/03/24) HCT 49.1 (07/03/24) PLT 357 (07/03/24) PT 13.9 H (06/21/24) INR 1.2 H (06/21/24) SGOT 23 (06/23/24) SGPT 12 (06/23/24) No data available TODAY'S LAB RESULTS APPEARANCE: CLEAR UR COLOR: YELLOW SPECIFIC GRAVITY: 1.031 UR BLOOD: NEGATIVE UR BILIRUBIN: NEGATIVE UR KETONES: 1+ UR GLUCOSE: 1000 UR PROTEIN: 30 UR PH: 6.0 WBC/HPF: 23 H RBC/HPF: 3 BACTERIA: NONE SEEN SQUAMOUS EPITHELIAL: 5 NITRITE, URINE: NEGATIVE WBC CLUMPS: PRESENT LEUKOCYTE ESTERASE: 250 WBC: 15.8 H RBC: 5.11 HGB: 16.1 HCT: 49.1 MCV: 96.1 MCH: 31.5 MCHC: 32.8 RDW: 13.7 PLT: 357 MPV: 9.8 Stress Test SII - Lita Image Impression No data available for: CARDIOVASCULAR STRESS TEST Coronary Angiogram Selected Progress Notes 03/23/2016 15:24 Local Title: CARDIAC CATHETERIZATION CART PROCEDURE NOTE Standard Title: INTERVENTIONAL CARDIOLOGY PROCEDURE NOTE MS Cardiovascular Assessment, Reporting, and Tracking (CART) system CARDIOVASCULAR DIAGNOSTIC AND THERAPEUTIC PROCEDURE REPORT Patient: FLACA WEAVER SSN: [id number] : 1950 AGE: 65 Procedure Date: 03/23/2016 Associated Assessment: 03/23/2016 Attending: JOSH COSME Operators: JOSH COSME; TOBI MICHAEL Procedures: Coronary Angiography Status: Elective This was an outpatient procedure. NPO status greater than 4 hours verified. Type of procedure, site, and patient ID were verified with the patient. Re-assessment was performed immediately prior to conscious sedation and no change was noted. Indications: Positive Functional Study, Chest Pain Progressive limiting exertional chest pain and shortness of breath and moderate inferior ischemia. ACCESS Primary Arterial: Right Femoral, 6F sheath, Manual closure CATHETERS Right coronary artery: JR 4, 6 fr Left coronary artery: JL 4, 6 fr Aorta: 131/74, mean 99 CORONARY ANGIOGRAPHY Jena Vessels Summary: 1 vessel CAD Dominance: Right dominant Stenoses Details Segment Stenosis* Characteristics and Comments Left Main Luminal irregularities Proximal LAD 30 Mid LAD Luminal irregularities Distal LAD Luminal irregularities 1st Diagonal Luminal irregularities Proximal Circumflex Luminal irregularities Mid Circumflex Luminal irregularities Distal Circumflex Luminal irregularities 1st Obtuse Marginal Luminal irregularities 2nd Obtuse Marginal small Proximal RCA 100 possible microchannel Mid RCA 70 Distal RCA 50 Fills by [id number] and bridging collaterals Right PDA fills by [id number] and bridging collaterals Right PAV Segment Luminal irregularities Right PL Segment 1 Fills by [id number] and bridging collaterals * Highest % Stenosis Within Segment MEDICATIONS Fentanyl Midazolam, Given during visit Nitroglycerin Summary Data: Total Contrast: 140 mL Total Fluoroscopy Time: 9 min COMPLICATIONS IN LAB No Complications FINAL DIAGNOSIS 1. Progressive limiting exertional chest pain and shortness of breath. 2. Moderate inferior ischemia on nuclear stress testing. 3. Chronic occlusion of the proximal RCA (microchannel is possible) correspoding well to the angiographic findings. RECOMMENDATIONS The images were reviewed by the referring lance crewmember, Dr. Burdick, and the findings explained to the patient in detail. We have discussed medical management and an attempt at PCI with the patient and have all (the patient, Dr. Burdick and I) together decided to proceed with a PCI attempt. Signed by: /alexi/ JOSH COSME MD STAFF CABLE SWAGER 03/23/2016 15:25 Digital Pager: [phone] CT Angiogram No data available Pacemaker Note Chest Xray Impression for CHEST 2 VIEWS PA AND LAT, 07/07/22, case [id number] No acute cardiopulmonary disease. CT Chest No Reports found CT Head No data available PFT NO PULMONARY FUNCTION TESTS ON FILE Carotid Ultrasound US EXTRACRANIAL ARTERIES NON-INVAS/PHYSIOLOGIC/DANICA - NONE FOUND - 1Y ASA STATUS: 3 Patient's preoperative assessment reviewed. There are no significant changes, new conditions, or additions from the patient's anesthesia preoperative assessment. NPO STATUS: Meets ASA guidelines (>2 hrs clear liquids, >6 hrs light meal, >8 hrs heavy meal) ANESTHESIA PLAN: General Endotracheal Tube arterial line ERAS PATHWAY: No BLOOD PRODUCT CONSENT: Yes INSULIN PROTOCOL: No The anesthetic plan including the risks, benefits, side effects and alternative options of the plan were discussed with the patient/responsible chain sales representative. The patient/chain sales representative has been encouraged to ask questions and any concerns have been addressed. The patient/chain sales representative endorses understanding of the information disclosed. The patient/chain sales representative voluntarily elects to move forward with the anesthetic plan. 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 Patient is feeling well today and has had no changes from his H&P completed on 06/08. The patient was assessed prior to anesthesia induction on the day of surgery and no change in patient condition was noted. /alexi/ LEI LAW General Surgery Resident Signed: 07/03/2024 07:43 LEI LAW [facility] Jul 03, 2024 07:34 AM SURGERY ATTENDING PRE OPERATIVE E & M NOTE: LOCAL TITLE: PRE-OP SURGERY STAFF NOTE STANDARD TITLE: SURGERY ATTENDING PRE OPERATIVE E & M NOTE DATE OF NOTE: JUL 03, 2024@07:34 ENTRY DATE: JUL 03, 2024@07:34:47 AUTHOR: HOWIE GRIDER EXP COSIGNER: URGENCY: STATUS: COMPLETED Pre-Operative Staff Note Diagnosis/findings: Ureteral identification Planned Procedure: Bilateral ureteral stents and possible ICG Case discussed with resident, patient seen and examined. Pertinent history, imaging and pathology reports reviewed. Patient informed of alternatives, risks and benefits. Agree with diagnosis, findings, preoperative assessment and planned procedure or treatment plan. /alexi/ HOWIE GRIDER MD STAFF SURGEON Signed: 07/03/2024 07:35 HOWIE GRIDER [facility] Jul 03, 2024 06:54 AM CONSENT: LOCAL TITLE: CONSENT CLINICAL IMED STANDARD TITLE: CONSENT DATE OF NOTE: JUL 03, 2024@06:54:16 ENTRY DATE: JUL 03, 2024@06:54:39 AUTHOR: CHANEL HEREDIA EXP COSIGNER: URGENCY: STATUS: COMPLETED VistA Imaging - Scanned Document Signature Informed Consent for Peripheral Nerve Block 1. Anatomical Location: Bilateral quadratus lumborum blocks versus bilateral erector spinae plane blocks versus bilateral external oblique intercostal fascial plane blocks versus bilateral rectus sheath blocks +/- bilateral transversus abdominis plane blocks 2. Informed consent was obtained at 6:52 AM on 07/03/24. The full consent document can be accessed through [employer]. 3. Patient name: FLACA WEAVER 4. The patient HAS decision-making capacity. 5. Surrogate (if applicable): 6. Reason for the treatment (diagnosis, condition, or indication): Pain due to an injury or surgery. 7. Treatment/procedure: A peripheral nerve block is a procedure in which a part of the body is made numb by injecting local anesthetics (numbing medication) near one or more nerves. The local anesthetic blocks transmission of nerve impulses, which can cause both temporary loss of sensation and movement of muscles controlled by the blocked nerve. The anesthesia provider performs a peripheral nerve block in the following manner. If the doctor deems necessary, an intravenous (IV) line may be started and standard monitors may be applied. Before the injection, the skin is cleaned with an antiseptic solution to prevent infection. A local anesthetic is injected through a tiny needle to numb the skin and deeper tissues. A nerve block needle is inserted and placed near the peripheral nerve. With certain blocks, correct placement is confirmed by either seeking a paresthesia or the use of a nerve stimulator. A paresthesia is a temporary sensation, similar to the sensation that occurs when the funny bone is struck. This sensation indicates that the needle is positioned near the peripheral nerve. A nerve stimulator applies a tiny electrical impulse to the nerve block needle that makes a muscle twitch when the needle is appropriately placed. After the needle is correctly positioned, local anesthetic medications are injected. Loss of sensation and movement in the particular nerve distribution occurs gradually over a 10 to 30 minute time period. A catheter (thin tube) may be left in place and used to administer local anesthetics for as long as a few days. 8. Anesthesia will be administered. A member [...] in this treatment/procedure. 10. Practitioner obtaining consent: Zuhair Nguyen MD 11. Supervising practitioner: 12. Practitioner(s) performing or supervising treatment/procedure (if not listed above): Shilpi Frost CRNA 13. Witness Name(s): 14. Comments: SCANNED DOCUMENT SIGNATURE NOT REQUIRED Electronically Filed: 07/03/2024 by: CHANEL HEREDIA,[facility]ANEL [facility]
--- OUTSIDE RECORDS SUMMARY | 2024-07-16 07:39 | XMS_ITS ---
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 Date/Time Encounter Type Encounter Description Reason Pro vider Source Jul 03, 2024 11:25 AM Inpatient Visit DAILY HOSPITALIZATION DATA LINDA [...] of theEncounter. The data comes from all [place] treatment facilities. Test Date/Time Test Type Test Details Facility Name May 28, 2024 12:00 AM Laboratory - Blood Bank Order TYPE & SCREEN - LAB BLOOD SP [facility] Jun 08, 2024 09:57 AM Laboratory - Chemi stry Order URINALYSIS URINE WC ONCE [facility] Jun 12, 2024 12:00 AM Laboratory - Chemi stry Order BNP PLASMA SP ONCE [facility] Jun 21, 2024 05:45 PM Laboratory - Blood Bank Order TYPE & SCREEN - LAB BLOOD WC [facility] Jul 03, 2024 12:00 AM Laboratory - Blood Bank Order TYPE & SCREEN - LAB BLOOD [facility] Jul 16, 2024 12:00 AM Laboratory - Chemi stry Order CBC BLOOD SP ONCE [facility] Jul 17, 2024 12:00 AM Laboratory - Chemi stry Order BASIC METABOLIC PANEL+MG PLASMA SP ONCE [facility] Lab Results: +/- [...] Range Comment Jul 10, 2024 07:16 AM [facility] PHOSPHORUS Specimen Type: PLASMA No comment entered. Ordering Provider: JUANCARLOS ECHOLS S Report Released Date/Time: Jul 09, 2024 12:23 PM Reporting Lab: [facility] [address] Performing Lab: [facility] [address] PHOSPHORUS 3.0 mg/dL 2.3-4.3 Jul 10, 2024 07:16 AM [facility] BASIC METABOLIC PANEL+MG Specimen Type: PLASMA No comment entered. Ordering Provider: JUANCARLOS ECHOLS S Report Released Date/Time: Jul 09, 2024 12:23 PM Reporting Lab: [facility] [address] Performing Lab: [facility] [address] CREATININE 0.7 mg/dL 0.7-1.2 UREA NITROGEN 27 mg/dL H 8-26 GLUCOSE 104 mg/dL H 70-100 SODIUM 133 mmol/L L 136-145 POTASSIUM 4.3 mmol/L 3.5-5.1 CHLORIDE 102 mmol/L 98-107 CO2 19 mmol/L L 22-29 CALCIUM 10.1 mg/dL 8.4-10.2 MAGNESIUM 1.9 mg/dL 1.6-2.6 ANION GAP 12 mmol/L 5-15 .CREAT EGFR(CKD-EPI) >90 >60 Jul 10, 2024 07:15 AM [facility] CBC Specimen Type: BLOOD No comment entered. Ordering Provider: JUANCARLOS ECHOLS Report Released Date/Time: Jul 09, 2024 12:23 PM Reporting Lab: [facility] [address] Performing Lab: [facility] [address] WBC 18.8 H 4.0-11.0 RBC 5.08 4.60-6.20 HGB 15.9 g/dL 13.5-17.9 HCT 46.8 41.0-54.0 MCV 92.1 fL 80.0-100.0 MCH 31.3 pg 27.0-33.0 MCHC 34.0 g/dL 32.0-37.5 PLT 479 H 150-400 MPV 10.2 fL 9.1-13.0 RDW 13.7 11.5-14.5 Jul 09, 2024 07:08 AM [facility] CBC Specimen Type: BLOOD No comment entered. Ordering Provider: QUYNH WEISS AV Report Released Date/Time: Jul 08, 2024 06:18 PM Reporting Lab: [facility] [address] Performing Lab: [facility] [address] WBC 15.3 H 4.0-11.0 RBC 4.91 4.60-6.20 HGB 15.1 g/dL 13.5-17.9 HCT 45.7 41.0-54.0 MCV 93.1 fL 80.0-100.0 MCH 30.8 pg 27.0-33.0 MCHC 33.0 g/dL 32.0-37.5 PLT 443 H 150-400 MPV 10.0 fL 9.1-13.0 RDW 13.5 11.5-14.5 Jul 08, 2024 10:50 AM [facility] URINALYSIS Specimen Type: URINE No comment entered. Ordering Provider: KATELYNN PERSON Report Released Date/Time: Jul 08, 2024 08:41 AM Reporting Lab: [facility] [address] Performing Lab: [facility] [address] URINE COLOR YELLOW SPECIFIC GRAVITY >1.050 H [...] NEGATIVE NEGATIVE Jul 08, 2024 09:54 AM [facility] CBC Specimen Type: BLOOD Comment: Specimen received in Lab at: [id number] Ordering Provider: JUANCARLOS ECHOLS Report Released Date/Time: Jul 07, 2024 04:49 PM Reporting Lab: [facility] [address] Performing Lab: [facility] [address] WBC 17.5 H 4.0-11.0 RBC 4.88 4.60-6.20 HGB 14.9 g/dL 13.5-17.9 HCT 45.7 41.0-54.0 MCV 93.6 fL 80.0-100.0 MCH 30.5 pg 27.0-33.0 MCHC 32.6 g/dL 32.0-37.5 PLT 472 H 150-400 MPV 10.2 fL 9.1-13.0 RDW 13.7 11.5-14.5 Jul 08, 2024 09:54 AM [facility] PHOSPHORUS Specimen Type: PLASMA Comment: Specimen received in Lab at: [id number] Ordering Provider: BALAJADIA,MAR IA S Report Released Date/Time: Jul 07, 2024 04:49 PM Reporting Lab: [facility] [address] Performing Lab: [facility] [address] PHOSPHORUS 2.6 mg/dL 2.3-4.3 Jul 08, 2024 09:54 AM [facility] BASIC METABOLIC PANEL+MG Specimen Type: PLASMA Comment: Specimen received in Lab at: [id number] Ordering Provider: JUANCARLOS ECHOLS S Report Released Date/Time: Jul 07, 2024 04:49 PM Reporting Lab: [facility] [address] Performing Lab: [facility] [address] CREATININE 0.9 mg/dL 0.7-1.2 UREA NITROGEN 26 mg/dL 8-26 GLUCOSE 128 mg/dL H 70-100 SODIUM 134 mmol/L L 136-145 POTASSIUM 3.4 mmol/L L 3.5-5.1 CHLORIDE 100 mmol/L 98-107 CO2 24 mmol/L 22-29 CALCIUM 9.8 mg/dL 8.4-10.2 MAGNESIUM 1.8 mg/dL 1.6-2.6 ANION GAP 10 mmol/L 5-15 .CREAT EGFR(CKD-EPI) >90 >60 Jul 07, 2024 02:00 PM [facility] C DIFF PANEL Specimen Type: FECES No comment entered. Ordering Provider: JEVON ZAZUETA Report Released Date/Time: Jul 07, 2024 12:26 PM Reporting Lab: [facility] [address] Performing Lab: [facility] [address] C DIFF TOX B GENE PCR NEGATIVE Negative Jul 07, 2024 07:41 AM [facility] PHOSPHORUS Specimen Type: PLASMA No comment entered. Ordering Provider: JEVON ZAZUETA Report Released Date/Time: Jul 06, 2024 03:44 PM Reporting Lab: [facility] [address] Performing Lab: [facility] [address] PHOSPHORUS 3.1 mg/dL 2.3-4.3 Jul 07, 2024 07:41 AM [facility] BASIC METABOLIC PANEL+MG Specimen Type: PLASMA No comment entered. Ordering Provider: JEVON ZAZUETA Report Released Date/Time: Jul 06, 2024 03:44 PM Reporting Lab: [facility] [address] Performing Lab: [facility] [address] CREATININE 0.9 mg/dL 0.7-1.2 UREA NITROGEN 20 mg/dL 8-26 GLUCOSE 157 mg/dL H 70-100 SODIUM 136 mmol/L 136-145 POTASSIUM 3.7 mmol/L 3.5-5.1 CHLORIDE 102 mmol/L 98-107 CO2 21 mmol/L L 22-29 CALCIUM 9.8 mg/dL 8.4-10.2 MAGNESIUM 1.9 mg/dL 1.6-2.6 ANION GAP 13 mmol/L 5-15 .CREAT EGFR(CKD-EPI) >90 >60 Jul 07, 2024 07:40 AM [facility] CBC Specimen Type: BLOOD No comment entered. Ordering Provider: JEVON ZAZUETA Report Released Date/Time: Jul 06, 2024 03:44 PM Reporting Lab: [facility] [address] Performing Lab: [facility] [address] WBC 21.2 H 4.0-11.0 RBC 5.09 4.60-6.20 HGB 15.9 g/dL 13.5-17.9 HCT 48.3 41.0-54.0 MCV 94.9 fL 80.0-100.0 MCH 31.2 pg 27.0-33.0 MCHC 32.9 g/dL 32.0-37.5 PLT 500 H 150-400 MPV 10.3 fL 9.1-13.0 RDW 13.6 11.5-14.5 Jul 06, 2024 07:21 AM [facility] CBC Specimen Type: BLOOD No comment entered. Ordering Provider: JEVON ZAZUETA Report Released Date/Time: Jul 05, 2024 01:22 PM Reporting Lab: [facility] [address] Performing Lab: [facility] [address] WBC 18.0 H 4.0-11.0 RBC 4.83 4.60-6.20 HGB 14.6 g/dL 13.5-17.9 HCT 45.5 41.0-54.0 MCV 94.2 fL 80.0-100.0 MCH 30.2 pg 27.0-33.0 MCHC 32.1 g/dL 32.0-37.5 PLT 368 150-400 MPV 10.4 fL 9.1-13.0 RDW 13.6 11.5-14.5 Jul 06, 2024 07:21 AM [facility] PHOSPHORUS Specimen Type: PLASMA No comment entered. Ordering Provider: JEVON ZAZUETA Report Released Date/Time: Jul 05, 2024 01:22 PM Reporting Lab: [facility] [address] Performing Lab: [facility] [address] PHOSPHORUS 3.6 mg/dL 2.3-4.3 Jul 06, 2024 07:21 AM [facility] BASIC METABOLIC PANEL+MG Specimen Type: PLASMA No comment entered. Ordering Provider: JEVON ZAZUETA Report Released Date/Time: Jul 05, 2024 01:22 PM Reporting Lab: [facility] [address] Performing Lab: [facility] [address] CREATININE 0.7 mg/dL 0.7-1.2 UREA NITROGEN 12 mg/dL 8-26 GLUCOSE 108 mg/dL H 70-100 SODIUM 138 mmol/L 136-145 POTASSIUM 3.4 mmol/L L 3.5-5.1 CHLORIDE 104 mmol/L 98-107 CO2 20 mmol/L L 22-29 CALCIUM 9.3 mg/dL 8.4-10.2 MAGNESIUM 1.9 mg/dL 1.6-2.6 ANION GAP 14 mmol/L 5-15 .CREAT EGFR(CKD-EPI) >90 >60 Jul 05, 2024 07:17 AM [facility] MAGNESIUM Specimen Type: PLASMA No comment entered. Ordering Provider: JUANCARLOS ECHOLS S Report Released Date/Time: Jul 04, 2024 09:39 AM Reporting Lab: [facility] [address] Performing Lab: [facility] [address] MAGNESIUM 2.0 mg/dL 1.6-2.6 Jul 05, 2024 07:17 AM [facility] PHOSPHORUS Specimen Type: PLASMA No comment entered. Ordering Provider: JUANCARLOS ECHOLS S Report Released Date/Time: Jul 04, 2024 09:39 AM Reporting Lab: [facility] [address] Performing Lab: [facility] [address] PHOSPHORUS 2.0 mg/dL L 2.3-4.3 Jul 05, 2024 07:17 AM [facility] BASIC METABOLIC PANEL+MG Specimen Type: PLASMA No comment entered. Ordering Provider: JUANCARLOS ECHOLS S Report Released Date/Time: Jul 04, 2024 09:39 AM Reporting Lab: [facility] [address] Performing Lab: [facility] [address] CREATININE 0.7 mg/dL 0.7-1.2 UREA NITROGEN 12 mg/dL 8-26 GLUCOSE 84 mg/dL 70-100 SODIUM 135 mmol/L L 136-145 POTASSIUM 3.8 mmol/L 3.5-5.1 CHLORIDE 104 mmol/L 98-107 CO2 24 mmol/L 22-29 CALCIUM 9.3 mg/dL 8.4-10.2 MAGNESIUM 2.0 mg/dL 1.6-2.6 ANION GAP 7 mmol/L 5-15 .CREAT EGFR(CKD-EPI) >90 >60 Jul 05, 2024 07:16 AM [facility] CBC Specimen Type: BLOOD No comment entered. Ordering Provider: JUANCARLOS ECHOLS S Report Released Date/Time: Jul 04, 2024 09:39 AM Reporting Lab: [facility] [address] Performing Lab: [facility] [address] WBC 18.3 H 4.0-11.0 RBC 4.49 L 4.60-6.20 HGB 14.1 g/dL 13.5-17.9 HCT 43.4 41.0-54.0 MCV 96.7 fL 80.0-100.0 MCH 31.4 pg 27.0-33.0 MCHC 32.5 g/dL 32.0-37.5 PLT 317 150-400 MPV 10.0 fL 9.1-13.0 RDW 13.9 11.5-14.5 Jul 04, 2024 07:17 AM [facility] BASIC METABOLIC PANEL+MG Specimen Type: PLASMA No comment entered. Ordering Provider: GABINO CAMERON Report Released Date/Time: Jul 03, 2024 06:31 PM Reporting Lab: [facility] [address] Performing Lab: [facility] [address] CREATININE 0.7 mg/dL 0.7-1.2 UREA NITROGEN 16 mg/dL 8-26 GLUCOSE 129 mg/dL H 70-100 SODIUM 137 mmol/L 136-145 POTASSIUM 3.7 mmol/L 3.5-5.1 CHLORIDE 107 mmol/L 98-107 CO2 22 mmol/L 22-29 CALCIUM 9.0 mg/dL 8.4-10.2 MAGNESIUM 1.9 mg/dL 1.6-2.6 ANION GAP 8 mmol/L 5-15 .CREAT EGFR(CKD-EPI) >90 >60 Jul 04, 2024 07:17 AM [facility] PHOSPHORUS Specimen Type: PLASMA No comment entered. Ordering Provider: GABINO CAMERON Report Released Date/Time: Jul 03, 2024 06:31 PM Reporting Lab: [facility] [address] Performing Lab: [facility] [address] PHOSPHORUS 2.8 mg/dL 2.3-4.3 Jul 04, 2024 07:16 AM [facility] CBC Specimen Type: BLOOD No comment entered. Ordering Provider: GABINO CAMERON Report Released Date/Time: Jul 03, 2024 06:31 PM Reporting Lab: [facility] [address] Performing Lab: [facility] [address] WBC 20.6 H 4.0-11.0 RBC 4.63 4.60-6.20 HGB 14.2 g/dL 13.5-17.9 HCT 43.4 41.0-54.0 MCV 93.7 fL 80.0-100.0 MCH 30.7 pg 27.0-33.0 MCHC 32.7 g/dL 32.0-37.5 PLT 329 150-400 MPV 10.4 fL 9.1-13.0 RDW 13.8 11.5-14.5 Jul 04, 2024 07:16 AM [facility] CBC & DIFF Specimen Type: BLOOD Comment: Manual Differential Performed Ordering Provider: GABINO CAMERON Report Released Date/Time: Jul 03, 2024 06:31 PM Reporting Lab: [facility] [address] Performing Lab: [facility] [address] WBC 20.6 H 4.0-11.0 RBC 4.63 4.60-6.20 [...] MORPHOLOGY PRESENT Jul 04, 2024 07:15 AM [facility] BNP Specimen Type: PLASMA No comment entered. Ordering Provider: GABINO CAMERON Report Released Date/Time: Jul 03, 2024 06:31 PM Reporting Lab: [facility] [address] Performing Lab: [facility] [address] BNP 292 pg/mL H <99 Jul 03, 2024 10:32 PM [facility] FINGERSTICK GLUCOSE Specimen Type: BLOOD Comment: Save Result Nurse Notified Ordering Provider: KATELYNN PERSON Report Released Date/Time: Jul 03, 2024 10:50 PM Reporting Lab: [facility] [address] Performing Lab: [facility] [address] FINGERSTICK GLUCOSE 126 mg/dL H 70-100 Jul 03, 2024 05:33 PM [facility] FINGERSTICK GLUCOSE Specimen Type: BLOOD Comment: Save Result Nurse Notified Ordering Provider: KATELYNN PERSON Report Released Date/Time: Jul 03, 2024 05:46 PM Reporting Lab: [facility] [address] Performing Lab: [facility] [address] FINGERSTICK GLUCOSE 141 mg/dL H 70-100 Jul 03, 2024 02:31 PM [facility] POC ABG/ELECTROLYTES Specimen Type: ARTERIAL BLOOD Comment: FIO2 = 97% Patient Temp: 36.0 C Sample Type = ARTERIAL Ordering Provider: MAZIN ARREDONDO Report Released Date/Time: Jul 03, 2024 01:48 PM Reporting Lab: [facility] [address] Performing Lab: [facility] [address] POC PH 7.387 7.35-7.45 POC PCO2 34.4 [...] H 80.0-105.0 Jul 03, 2024 01:05 PM [facility] POC ABG/ELECTROLYTES Specimen Type: ARTERIAL BLOOD Comment: FIO2 = 53% Patient Temp: 36.2 C Sample Type = ARTERIAL Ordering Provider: MAZIN ARREDONDO Report Released Date/Time: Jul 03, 2024 01:48 PM Reporting Lab: [facility] [address] Performing Lab: [facility] [address] POC PH 7.280 L 7.35-7.45 POC PCO2 [...] mm[Hg] 80.0-105.0 Jul 03, 2024 06:15 AM [facility] URINALYSIS Specimen Type: URINE No comment entered. Ordering Provider: MARYBETH POWELL Report Released Date/Time: Jun 12, 2024 04:01 PM Reporting Lab: [facility] [address] Performing Lab: [facility] [address] URINE COLOR YELLOW SPECIFIC GRAVITY 1.031 1.003-1.03 [...] 250 NEGATIVE Jul 03, 2024 06:13 AM [facility] CBC Specimen Type: BLOOD No comment entered. Ordering Provider: MARYBETH POWELL Report Released Date/Time: Jun 12, 2024 03:59 PM Reporting Lab: [facility] [address] Performing Lab: [facility] [address] WBC 15.8 H 4.0-11.0 RBC 5.11 4.60-6.20 HGB 16.1 g/dL 13.5-17.9 HCT 49.1 41.0-54.0 MCV 96.1 fL 80.0-100.0 MCH 31.5 pg 27.0-33.0 MCHC 32.8 g/dL 32.0-37.5 PLT 357 150-400 MPV 9.8 fL 9.1-13.0 RDW 13.7 11.5-14.5 Jun 24, 2024 09:50 AM [facility] BASIC METABOLIC PANEL+MG Specimen Type: PLASMA Comment: Specimen received in Lab at: 0948 Ordering Provider: JEVON ZAZUETA Report Released Date/Time: Jun 23, 2024 06:07 PM Reporting Lab: [facility] [address] Performing Lab: [facility] [address] CREATININE 0.8 mg/dL 0.7-1.2 UREA NITROGEN 13 mg/dL 8-26 GLUCOSE 135 mg/dL H 70-100 SODIUM 135 mmol/L L 136-145 POTASSIUM 3.6 mmol/L 3.5-5.1 CHLORIDE 103 mmol/L 98-107 CO2 24 mmol/L 22-29 CALCIUM 9.2 mg/dL 8.4-10.2 MAGNESIUM 1.9 mg/dL 1.6-2.6 ANION GAP 8 mmol/L 5-15 .CREAT EGFR(CKD-EPI) >90 >60 Jun 24, 2024 09:50 AM [facility] CBC Specimen Type: BLOOD Comment: Specimen received in Lab at: 0948 Ordering Provider: JEVON ZAZUETA Report Released Date/Time: Jun 23, 2024 06:07 PM Reporting Lab: [facility] [address] Performing Lab: [facility] [address] WBC 15.5 H 4.0-11.0 RBC 4.93 4.60-6.20 HGB 15.2 g/dL 13.5-17.9 HCT 46.5 41.0-54.0 MCV 94.3 fL 80.0-100.0 MCH 30.8 pg 27.0-33.0 MCHC 32.7 g/dL 32.0-37.5 PLT 223 150-400 MPV 11.4 fL 9.1-13.0 RDW 13.9 11.5-14.5 Jun 23, 2024 07:52 AM [facility] COMPREHENSIVE METABOLIC PANEL+MG Specimen Type: PLASMA No comment entered. Ordering Provider: JEVON ZAZUETA Report Released Date/Time: Jun 22, 2024 05:51 PM Reporting Lab: [facility] [address] Performing Lab: [facility] [address] CREATININE 0.7 mg/dL 0.7-1.2 UREA NITROGEN 16 [...] >90 >60 Jun 23, 2024 07:52 AM [facility] CBC & DIFF Specimen Type: BLOOD Comment: Automated Differential Performed Ordering Provider: JEVON ZAZUETA Report Released Date/Time: Jun 22, 2024 05:51 PM Reporting Lab: [facility] [address] Performing Lab: [facility] [address] WBC 14.9 H 4.0-11.0 RBC 5.09 4.60-6.20 [...] 0.1 0.0-0.1 Jun 22, 2024 06:10 PM [facility] COMPREHENSIVE METABOLIC PANEL+MG Specimen Type: PLASMA No comment entered. Ordering Provider: JEVON ZAZUETA Report Released Date/Time: Jun 22, 2024 05:51 PM Reporting Lab: [facility] [address] Performing Lab: [facility] [address] CREATININE 0.7 mg/dL 0.7-1.2 UREA NITROGEN 17 [...] >90 >60 Jun 22, 2024 06:10 PM [facility] CBC Specimen Type: BLOOD No comment entered. Ordering Provider: JEVON ZAZUETA Report Released Date/Time: Jun 22, 2024 05:51 PM Reporting Lab: [facility] [address] Performing Lab: [facility] [address] WBC 16.9 H 4.0-11.0 RBC 5.28 4.60-6.20 HGB 16.9 g/dL 13.5-17.9 HCT 50.4 41.0-54.0 MCV 95.5 fL 80.0-100.0 MCH 32.0 pg 27.0-33.0 MCHC 33.5 g/dL 32.0-37.5 PLT 223 150-400 MPV 10.9 fL 9.1-13.0 RDW 14.0 11.5-14.5 Jun 21, 2024 06:48 PM [facility] URINALYSIS Specimen Type: URINE No comment entered. Ordering Provider: DELIA MARTINEZ Report Released Date/Time: Jun 21, 2024 05:45 PM Reporting Lab: [facility] [address] Performing Lab: [facility] [address] URINE COLOR YELLOW SPECIFIC GRAVITY 1.041 H [...] 500 NEGATIVE Jun 21, 2024 05:34 PM [facility] POC CREATININE Specimen Type: BLOOD No comment entered. Ordering Provider: DELIA MARTINEZ Report Released Date/Time: Jun 21, 2024 06:07 PM Reporting Lab: [facility] [address] Performing Lab: [facility] [address] POC CREATININE 1.1 mg/dL 0.6-1.3 Jun 21, 2024 05:30 PM [facility] POC ABG/LACTATE Specimen Type: VENOUS BLOOD No comment entered. Ordering Provider: DELIA MARTINEZ Report Released Date/Time: Jun 21, 2024 06:07 PM Reporting Lab: [facility] [address] Performing Lab: [facility] [address] POC PH 7.470 H 7.31-7.41 POC PCO2 31.2 mm[Hg] L 41.00-51 .0 0 POC PO2 46 mm[Hg] H 35.0-40.0 POC TCO2 24 mmol/L 24.0-29.0 POC HCO3 22.7 mmol/L L 23.0-28.0 POC BE ECT -1 mmol/L POC SO2 85 H 70-75 POC LACTATE 1.85 mmol/L 0.90-1.70 Jun 21, 2024 05:24 PM [facility] PROTHROMBIN TIME/INR Specimen Type: PLASMA No comment entered. Ordering Provider: DELIA MARTINEZ Report Released Date/Time: Jun 21, 2024 05:30 PM Reporting Lab: [facility] [address] Performing Lab: [facility] [address] .INR 1.2 H 0.8-1.1 .PT 13.9 s H 9.4-12.5 Jun 21, 2024 05:24 PM [facility] LIPASE Specimen Type: PLASMA No comment entered. Ordering Provider: DELIA MARTINEZ Report Released Date/Time: Jun 21, 2024 05:30 PM Reporting Lab: [facility] [address] Performing Lab: [facility] [address] LIPASE 32 U/L <60 Jun 21, 2024 05:24 PM [facility] COMPREHENSIVE METABOLIC PANEL+MG Specimen Type: PLASMA No comment entered. Ordering Provider: DELIA MARTINEZ Report Released Date/Time: Jun 21, 2024 05:30 PM Reporting Lab: [facility] [address] Performing Lab: [facility] [address] CREATININE 0.9 mg/dL 0.7-1.2 UREA NITROGEN 29 [...] mg/dL <0.5 Jun 21, 2024 05:24 PM [facility] EXTRA GOLD GEL TUBE Specimen Type: SERUM No comment entered. Ordering Provider: DELIA MARTINEZ Report Released Date/Time: Jun 21, 2024 05:41 PM Reporting Lab: [facility] [address] Performing Lab: [facility] [address] EXTRA GOLD GEL TUBE RECEIVED Jun 21, 2024 05:24 PM [facility] CBC & DIFF Specimen Type: BLOOD Comment: Manual Differential Performed Ordering Provider: DELIA MARTINEZ Report Released Date/Time: Jun 21, 2024 05:30 PM Reporting Lab: [facility] [address] Performing Lab: [facility] [address] WBC 21.3 H 4.0-11.0 RBC 5.48 4.60-6.20 [...] MORPHOLOGY PRESENT Jun 08, 2024 10:59 AM [facility] CBC Specimen Type: BLOOD No comment entered. Ordering Provider: MARYBETH POWELL Report Released Date/Time: May 28, 2024 09:02 AM Reporting Lab: [facility] [id number] Performing Lab: [facility] [address] WBC 16.1 H 4.0-11.0 RBC 5.02 4.60-6.20 HGB 16.0 g/dL 13.5-17.9 HCT 47.1 41.0-54.0 MCV 93.8 fL 80.0-100.0 MCH 31.9 pg 27.0-33.0 MCHC 34.0 g/dL 32.0-37.5 PLT 228 150-400 MPV 10.3 fL 9.1-13.0 RDW 14.6 H 11.5-14.5 Jun 08, 2024 10:59 AM [facility] PROTHROMBIN TIME/INR Specimen Type: PLASMA No comment entered. Ordering Provider: MARYBETH POWELL Report Released Date/Time: May 28, 2024 09:02 AM Reporting Lab: [facility] [address] Performing Lab: [facility] [address] .INR 1.0 0.8-1.1 .PT 11.8 s 9.4-12.5 Jun 08, 2024 10:59 AM [facility] HEMOGLOBIN A1C Specimen Type: [...] 28, 2024 09:02 AM Reporting Lab: [facility] [phone] Performing Lab: [facility] [address] HEMOGLOBIN A1C 4.9 4.0-6.0 Jun 08, 2024 10:59 AM [facility] BASIC METABOLIC PANEL+MG Specimen Type: PLASMA No comment entered. Ordering Provider: MARYBETH POWELL Report Released Date/Time: May 28, 2024 09:02 AM Reporting Lab: [facility] [address] Performing Lab: [facility] [phone] CREATININE 0.9 mg/dL 0.7-1.2 UREA NITROGEN 15 [...] Source Jul 03, 2024 11:26 PM 3 [facility] Jul 03, 2024 10:33 PM 5 [facility] Jul 03, 2024 08:26 PM 3 [facility] Jul 03, 2024 07:58 PM 5 [facility] Jul 03, 2024 07:25 PM 3 [facility] Social History: Smoking Status (Most current) and [...] 15, 2024 08:30 AM [place] [facility] [facility] [place] Y[place] OR MORE [facility] May 06, 2023 11:30 AM 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 READING PHYSICIAN: Sarbjit Vaughn M.D. -[phone] 07/08/2024 12:46 [facility] National Teleradiology Program [phone] (For Medical Practitioner Use Only) Attention Patients / Veterans: If you have questions or concerns about these test results, please contact your ordering provider or primary care team. Primary Interpreting Staff: RADIOLOGY,OUTSIDE SERVICE, Staff Physician / RADIOLOGY,OUTSIDE SERVICE [facility] Jul 08, 2024 10:[address] (AP) ABDOMEN/PE LVIS W CONTRAST: FLACA WEAVER [id number] -[id number] M Exm Date: JUL 08, 2024@10:00 Req Phys: KATELYNN PERSON Pat Loc: 2KG/07-08-2024@12:07 Img Loc: CT IMAGING Service: [place] [address] (Case 22 COMPLETE) CT (AP) ABDOMEN/PELVIS W CONTRAST(CT Detailed) CPT:49809 Contrast Media : Non-ionic Iodinated Reason for [...] PLASMA .CREAT EGFR(CKD-E >90 Ref: >=60 Allergies: ([place] only) TERAZOSIN (Mar 13, 2015) Report Status: Verified Date Reported: JUL 08, 2024 Date Verified: JUL 08, 2024 [place] [employer]ocker E-Sig: Report: CT (AP) ABDOMEN/PELVIS W CONTRAST [...] as noted above READING PHYSICIAN: Celestino Blanc -[phone] 07/08/2024 13:04 [facility] National Teleradiology Program [phone] (For Medical Practitioner Use Only) Attention Patients / Veterans: If you have questions or concerns about these test results, please contact your ordering provider or primary care team. Primary Interpreting Staff: RADIOLOGY,OUTSIDE SERVICE, Staff Physician / RADIOLOGY,OUTSIDE SERVICE [facility] Jun 22, 2024 11:49 AM ABSCESS DRAIN PLAC EMENT PERITONEAL (P): FLACA WEAVER [id number] -1950 M Exm Date: JUN 22, 2024@11:49 Req Phys: ANGELA HOLDEN Loc: [facility]06-22-2024@17:14 Img Loc: INTERVENTIONAL RADIOLOGY Service: [place] [address] (Case [id number] COMPLETE) IR PERITONEAL/RETROPERITONEAL PER(ANI Detailed) CPT:93812 Reason for Study: diverticulitis with abscess (Case 3570 COMPLETE) IR MOD SEDATION 10-22 MIN (ANI Detailed) CPT:09329 Clinical History: IS NOT under investigation for COVID-19 or is COVID-19 negative 73 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 please place abscess drain. Contact number for responsible provider who can be reached for any questions or notifications of critical findings: [phone] n/a LAST CREATININE 0.9 (06/21/24) Report Status: Verified Date Reported: JUN 22, 2024 Date Verified: JUN 22, 2024 [place] [employer] E-Sig:/ES/LISA PENDLETON MD Report: PROCEDURES: Placement of [...] Using real-time CT fluoroscopy, a 5 Kuwaiti Ruci.cnesis catheter was advanced into the collection in [...] Primary Interpreting Staff: LISA PENDLETON MD, RADIOLOGIST ([place] [employer]ocker) /JRT LISA PENDLETON [facility] Jun 22, 2024 11:[address] NEEDLE PLACEMEN T (P): MEGFLACADARCI LOBO [id number] -1950 M Exm Date: JUN 22, 2024@11:48 Req Phys: ANGELA HOLDEN Loc: [facility]/06-22-2024@17:14 Img Loc: CT IMAGING Service: [place] [address] (Case [id number] COMPLETE) CT SCAN FOR NEEDLE PLACEMENT (CT Detailed) CPT:14370 Reason for Study: l pelvic abscess drain Clinical History: Report Status: Verified Date Reported: JUN 22, 2024 Date Verified: JUN 22, 2024 [place] [employer] E-Sig:/ES/LISA PENDLETON MD Report: PROCEDURES: Placement of [...] Using real-time CT fluoroscopy, a 5 Kuwaiti Ruci.cnesis catheter was advanced into the collection in [...] Primary Interpreting Staff: LISA PENDLETON MD, RADIOLOGIST ([place] Blocker) /JRLISA [facility] Jun 21, 2024 06:[address] (AP) ABDOMEN/PE LVIS (P): FLACA WEAVER [id number] -1950 M Exm Date: JUN 21, 2024@18:09 Req Phys: DELIA MARTINEZ Loc: [facility] EMERGENCY DEPT WALK-IN (Re Img Loc: CT IMAGING Service: [place] [address] (Case [id number] COMPLETE) CT (AP) ABDOMEN/PELVIS W CONTRAST(CT Detailed) CPT:59980 Contrast Media : Non-ionic Iodinated Reason for [...] PLASMA .CREAT EGFR(CKD-E >90 Ref: >=60 Allergies: ([place] only) TERAZOSIN (Mar 13, 2015) Defer to [...] 21, 2024 Date Verified: JUN 21, 2024 [place] [employer] E-Sig:/ES/CARLOS A CUNNINGHAM DO Report: EXAMINATION: CT [...] Interpreting Staff: CARLOS A CUNNINGHAM DO, RADIOLOGIST ([place] Blocker) /CARLOS A ROWELL [facility] Pathology Reports: +/- [...] COSIGNER: URGENCY: STATUS: COMPLETED $APHDR Reporting Lab: [facility] [CLIA# [id number]] [place] [address] - - - - - - - [...] - PATHOLOGY REPORT Accession No. [id number] - - - - - - - [...] - PATHOLOGY REPORT Accession No. 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 515 ID:[id number] SEX:M :1950 AGE: 73 LOC:98186 ADM:Jun DX:DIVERTICULITIS PCP: Jatinder Cabrera /alexi/ EDUARDO PALOMARES MD STAFF PATHOLOGIST Signed: 07/06/2024 10:40 EDUARDO PALOMARES [facility] Jun 22, 2024 01:15 PM LR MICROBIOLOGY RE PORT: Reporting Lab: [facility] [CLIA# [id number]] [place] [address] Accession [UID]: [id number] [[id number]] Received: Jun 22, 2024@13:38 Collection sample: FLUID Collection date: Jun 22, 2024 13:15 Provider: ANGELA HOLDEN Comment on specimen: LLQ ABSCESS, RECEIVED IN ANAEROBIC TRANSPORT VIAL Test(s) ordered: GRAM STAIN.................... completed: Jun 22, 2024 15:03 CULTURE & SUSCEPTIBILITY...... completed: Jun 25, 2024 * BACTERIOLOGY FINAL REPORT => Jun 25, 2024 10:56 TECH CODE: [id number] GRAM STAIN: DIRECT SMEAR of specimen before [...] -=--=--=--=--=--=--=-- Performing Laboratory: Bacteriology Report Performed By: [facility] [CLIA# [id number]] [place] [address] [facility] Jun 22, 2024 01:15 PM LR MICROBIOLOGY RE PORT: Reporting Lab: [facility] [CLIA# [id number]] [place] [address] Accession [UID]: [id number] [[id number]] Received: Jun 22, 2024@13:38 Collection sample: FLUID Collection date: Jun 22, 2024 13:15 Provider: ANGELA HOLDEN Comment on specimen: LLQ ABSCESS, RECEIVED IN ANAEROBIC TRANSPORT VIAL Test(s) ordered: ANAEROBIC CULTURE............. completed: Jun 28, 2024 * BACTERIOLOGY FINAL REPORT => Jun 28, 2024 10:08 TECH CODE: [id number] CULTURE RESULTS: HEAVY GROWTH MIXED ANAEROBES Comment: including the followin+ Bacteroides fragilis 4+ Bacteroides vulgatus 4+ Clostridium innocuum Beta-lactamase negative 4+ Bacteroides caccae 4+ Parvimonas micra 4+ Bacteroides uniformis 4+ Gemella morbillorum 4+ anaerobic small, Gram Positive Rods 4+ Bacteroides thetaiotaomicron Standard workup is now complete. Bacteriology Remark(s): THIS REPORT IS FINAL =--=--=--=--=--=--=--=--=--= --=--=--=--=--=--=--=--=--=- -=--=--=--=--=--=--=-- Performing Laboratory: Bacteriology Report Performed By: [facility] [CLIA# [id number]] [place] [address] [facility] Jun 21, 2024 06:12 PM LR MICROBIOLOGY RE PORT: Reporting Lab: [facility] [CLIA# [id number]] [place] [address] Accession [UID]: [id number] [[id number]] Received: Jun 21, 2024@18:12 Collection sample: BLOOD [...] -=--=--=--=--=--=--=-- Performing Laboratory: Bacteriology Report Performed By: [facility] [CLIA# [id number]] [place] [address] [facility] Jun 21, 2024 06:11 PM LR MICROBIOLOGY RE PORT: Reporting Lab: [facility] [CLIA# [id number]] [place] [address] Accession [UID]: [id number] [[id number]] Received: Jun 21, 2024@18:11 Collection sample: BLOOD [...] -=--=--=--=--=--=--=-- Performing Laboratory: Bacteriology Report Performed By: [facility] [CLIA# [id number]] [place] [address] [facility] Jun 08, 2024 11:00 AM LR MICROBIOLOGY RE PORT: Reporting Lab: [facility] [CLIA# [id number]] [place] [address] Accession [UID]: [id number] [[id number]] Received: Jun 08, 2024@11:00 Collection sample: URINE Collection date: Jun 08, 2024 11:00 Provider: MARYBETH POWELL Comment on specimen: urine Test(s) ordered: CULTURE & SUSCEPTIBILITY...... completed: Jun 09, 2024 * BACTERIOLOGY FINAL REPORT => Jun 09, 2024 19:12 TECH CODE: [id number] CULTURE RESULTS: ESCHERICHIA COLI - Quantity: >100,000 [...] -=--=--=--=--=--=--=-- Performing Laboratory: Bacteriology Report Performed By: [facility] [CLIA# [id number]] [place] [address] [facility]
--- OUTSIDE RECORDS SUMMARY | 2024-07-16 07:39 | XMS_ITS ---
[place] DAILY HOSPITALIZATION DATA [facility] Encounter Summary Created on: July 16, 2024 MEG FLACA YAMIL : 1950 Sex: Male Author Name [facility] [place] [facility] [place] [facility] [place] Address [address] [place] [address] Care Team Providers Care [place] [place] Manager Name Role Phone JATINDER CABRERA Primary [...] PART A Sep 29, 2016 PART A [id number] [phone] JUDY WEAVER PATIENT Selected Encounter This section includes the information on record at [place] for the Encounter. Date/Time Encounter Type Encounter Description Reason Pro vider Source Jul 03, 2024 07:23 AM Inpatient Visit DAILY HOSPITALIZATION DATA LINDA [...] 2024 08:15 AM AMBULATORY - NONE [facility] Active, Pending, and Scheduled Orders [...] TYPE & SCREEN - LAB BLOOD SP [facility] Jun 08, 2024 09:57 AM Laboratory - Chemi stry Order URINALYSIS URINE WC ONCE [facility] Jun 12, 2024 12:00 AM Laboratory - Chemi stry Order BNP PLASMA SP ONCE [facility] Jun 21, 2024 05:45 PM Laboratory - Blood Bank Order TYPE & SCREEN - LAB BLOOD WC [facility] Jul 03, 2024 12:00 AM Laboratory - Blood Bank Order TYPE & SCREEN - LAB BLOOD [facility] Jul 16, 2024 12:00 AM Laboratory - Chemi stry Order CBC BLOOD SP ONCE [facility] Jul 17, 2024 12:00 AM Laboratory - Chemi stry Order BASIC METABOLIC PANEL+MG PLASMA SP ONCE [facility] Lab Results: +/- 30 days [...] Range Comment Jul 10, 2024 07:16 AM [facility] PHOSPHORUS Specimen Type: PLASMA No comment entered. Ordering Provider: JUANCARLOS ECHOLS S Report Released Date/Time: Jul 09, 2024 12:23 PM Reporting Lab: [facility] [address] Performing Lab: [facility] [address] PHOSPHORUS 3.0 mg/dL 2.3-4.3 Jul 10, 2024 07:16 AM [facility] BASIC METABOLIC PANEL+MG Specimen Type: PLASMA No comment entered. Ordering Provider: JUANCARLOS ECHOLS S Report Released Date/Time: Jul 09, 2024 12:23 PM Reporting Lab: [facility] [address] Performing Lab: [facility] [address] CREATININE 0.7 mg/dL 0.7-1.2 UREA NITROGEN 27 mg/dL H 8-26 GLUCOSE 104 mg/dL H 70-100 SODIUM 133 mmol/L L 136-145 POTASSIUM 4.3 mmol/L 3.5-5.1 CHLORIDE 102 mmol/L 98-107 CO2 19 mmol/L L 22-29 CALCIUM 10.1 mg/dL 8.4-10.2 MAGNESIUM 1.9 mg/dL 1.6-2.6 ANION GAP 12 mmol/L 5-15 .CREAT EGFR(CKD-EPI) >90 >60 Jul 10, 2024 07:15 AM [facility] CBC Specimen Type: BLOOD No comment entered. Ordering Provider: JUANCARLOS ECHOLS Report Released Date/Time: Jul 09, 2024 12:23 PM Reporting Lab: [facility] [address] Performing Lab: [facility] [address] WBC 18.8 H 4.0-11.0 RBC 5.08 4.60-6.20 HGB 15.9 g/dL 13.5-17.9 HCT 46.8 41.0-54.0 MCV 92.1 fL 80.0-100.0 MCH 31.3 pg 27.0-33.0 MCHC 34.0 g/dL 32.0-37.5 PLT 479 H 150-400 MPV 10.2 fL 9.1-13.0 RDW 13.7 11.5-14.5 Jul 09, 2024 07:08 AM [facility] CBC Specimen Type: BLOOD No comment entered. Ordering Provider: QUYNH WEISS AV Report Released Date/Time: Jul 08, 2024 06:18 PM Reporting Lab: [facility] [address] Performing Lab: [facility] [address] WBC 15.3 H 4.0-11.0 RBC 4.91 4.60-6.20 HGB 15.1 g/dL 13.5-17.9 HCT 45.7 41.0-54.0 MCV 93.1 fL 80.0-100.0 MCH 30.8 pg 27.0-33.0 MCHC 33.0 g/dL 32.0-37.5 PLT 443 H 150-400 MPV 10.0 fL 9.1-13.0 RDW 13.5 11.5-14.5 Jul 08, 2024 10:50 AM [facility] URINALYSIS Specimen Type: URINE No comment entered. Ordering Provider: KATELYNN PERSON Report Released Date/Time: Jul 08, 2024 08:41 AM Reporting Lab: [facility] [address] Performing Lab: [facility] [address] URINE COLOR YELLOW SPECIFIC GRAVITY >1.050 H [...] NEGATIVE NEGATIVE Jul 08, 2024 09:54 AM [facility] CBC Specimen Type: BLOOD Comment: Specimen received in Lab at: [id number] Ordering Provider: JUANCARLOS ECHOLS Report Released Date/Time: Jul 07, 2024 04:49 PM Reporting Lab: [facility] [address] Performing Lab: [facility] [address] WBC 17.5 H 4.0-11.0 RBC 4.88 4.60-6.20 HGB 14.9 g/dL 13.5-17.9 HCT 45.7 41.0-54.0 MCV 93.6 fL 80.0-100.0 MCH 30.5 pg 27.0-33.0 MCHC 32.6 g/dL 32.0-37.5 PLT 472 H 150-400 MPV 10.2 fL 9.1-13.0 RDW 13.7 11.5-14.5 Jul 08, 2024 09:54 AM [facility] PHOSPHORUS Specimen Type: PLASMA Comment: Specimen received in Lab at: 0952 Ordering Provider: BALAJADIA,MAR IA S Report Released Date/Time: Jul 07, 2024 04:49 PM Reporting Lab: [facility] [address] Performing Lab: [facility] [address] PHOSPHORUS 2.6 mg/dL 2.3-4.3 Jul 08, 2024 09:54 AM [facility] BASIC METABOLIC PANEL+MG Specimen Type: PLASMA Comment: Specimen received in Lab at: 0952 Ordering Provider: JUANCARLOS ECHOLS S Report Released Date/Time: Jul 07, 2024 04:49 PM Reporting Lab: [facility] [address] Performing Lab: [facility] [address] CREATININE 0.9 mg/dL 0.7-1.2 UREA NITROGEN 26 mg/dL 8-26 GLUCOSE 128 mg/dL H 70-100 SODIUM 134 mmol/L L 136-145 POTASSIUM 3.4 mmol/L L 3.5-5.1 CHLORIDE 100 mmol/L 98-107 CO2 24 mmol/L 22-29 CALCIUM 9.8 mg/dL 8.4-10.2 MAGNESIUM 1.8 mg/dL 1.6-2.6 ANION GAP 10 mmol/L 5-15 .CREAT EGFR(CKD-EPI) >90 >60 Jul 07, 2024 02:00 PM [facility] C DIFF PANEL Specimen Type: FECES No comment entered. Ordering Provider: JEVON ZAZUETA Report Released Date/Time: Jul 07, 2024 12:26 PM Reporting Lab: [facility] [address] Performing Lab: [facility] [address] C DIFF TOX B GENE PCR NEGATIVE Negative Jul 07, 2024 07:41 AM [facility] PHOSPHORUS Specimen Type: PLASMA No comment entered. Ordering Provider: JEVON ZAZUETA Report Released Date/Time: Jul 06, 2024 03:44 PM Reporting Lab: [facility] [address] Performing Lab: [facility] [address] PHOSPHORUS 3.1 mg/dL 2.3-4.3 Jul 07, 2024 07:41 AM [facility] BASIC METABOLIC PANEL+MG Specimen Type: PLASMA No comment entered. Ordering Provider: JEVON ZAZUETA Report Released Date/Time: Jul 06, 2024 03:44 PM Reporting Lab: [facility] [address] Performing Lab: [facility] [address] CREATININE 0.9 mg/dL 0.7-1.2 UREA NITROGEN 20 mg/dL 8-26 GLUCOSE 157 mg/dL H 70-100 SODIUM 136 mmol/L 136-145 POTASSIUM 3.7 mmol/L 3.5-5.1 CHLORIDE 102 mmol/L 98-107 CO2 21 mmol/L L 22-29 CALCIUM 9.8 mg/dL 8.4-10.2 MAGNESIUM 1.9 mg/dL 1.6-2.6 ANION GAP 13 mmol/L 5-15 .CREAT EGFR(CKD-EPI) >90 >60 Jul 07, 2024 07:40 AM [facility] CBC Specimen Type: BLOOD No comment entered. Ordering Provider: JEVON ZAZUETA Report Released Date/Time: Jul 06, 2024 03:44 PM Reporting Lab: [facility] [address] Performing Lab: [facility] [address] WBC 21.2 H 4.0-11.0 RBC 5.09 4.60-6.20 HGB 15.9 g/dL 13.5-17.9 HCT 48.3 41.0-54.0 MCV 94.9 fL 80.0-100.0 MCH 31.2 pg 27.0-33.0 MCHC 32.9 g/dL 32.0-37.5 PLT 500 H 150-400 MPV 10.3 fL 9.1-13.0 RDW 13.6 11.5-14.5 Jul 06, 2024 07:21 AM [facility] CBC Specimen Type: BLOOD No comment entered. Ordering Provider: JEVON ZAZUETA Report Released Date/Time: Jul 05, 2024 01:22 PM Reporting Lab: [facility] [address] Performing Lab: [facility] [address] WBC 18.0 H 4.0-11.0 RBC 4.83 4.60-6.20 HGB 14.6 g/dL 13.5-17.9 HCT 45.5 41.0-54.0 MCV 94.2 fL 80.0-100.0 MCH 30.2 pg 27.0-33.0 MCHC 32.1 g/dL 32.0-37.5 PLT 368 150-400 MPV 10.4 fL 9.1-13.0 RDW 13.6 11.5-14.5 Jul 06, 2024 07:21 AM [facility] PHOSPHORUS Specimen Type: PLASMA No comment entered. Ordering Provider: JEVON ZAZUETA Report Released Date/Time: Jul 05, 2024 01:22 PM Reporting Lab: [facility] [address] Performing Lab: [facility] [address] PHOSPHORUS 3.6 mg/dL 2.3-4.3 Jul 06, 2024 07:21 AM [facility] BASIC METABOLIC PANEL+MG Specimen Type: PLASMA No comment entered. Ordering Provider: JEVON ZAZUETA Report Released Date/Time: Jul 05, 2024 01:22 PM Reporting Lab: [facility] [address] Performing Lab: [facility] [address] CREATININE 0.7 mg/dL 0.7-1.2 UREA NITROGEN 12 mg/dL 8-26 GLUCOSE 108 mg/dL H 70-100 SODIUM 138 mmol/L 136-145 POTASSIUM 3.4 mmol/L L 3.5-5.1 CHLORIDE 104 mmol/L 98-107 CO2 20 mmol/L L 22-29 CALCIUM 9.3 mg/dL 8.4-10.2 MAGNESIUM 1.9 mg/dL 1.6-2.6 ANION GAP 14 mmol/L 5-15 .CREAT EGFR(CKD-EPI) >90 >60 Jul 05, 2024 07:17 AM [facility] MAGNESIUM Specimen Type: PLASMA No comment entered. Ordering Provider: JUANCARLOS ECHOLS S Report Released Date/Time: Jul 04, 2024 09:39 AM Reporting Lab: [facility] [address] Performing Lab: [facility] [address] MAGNESIUM 2.0 mg/dL 1.6-2.6 Jul 05, 2024 07:17 AM [facility] PHOSPHORUS Specimen Type: PLASMA No comment entered. Ordering Provider: JUANCARLOS ECHOLS S Report Released Date/Time: Jul 04, 2024 09:39 AM Reporting Lab: [facility] [address] Performing Lab: [facility] [address] PHOSPHORUS 2.0 mg/dL L 2.3-4.3 Jul 05, 2024 07:17 AM [facility] BASIC METABOLIC PANEL+MG Specimen Type: PLASMA No comment entered. Ordering Provider: JUANCARLOS ECHOLS S Report Released Date/Time: Jul 04, 2024 09:39 AM Reporting Lab: [facility] [address] Performing Lab: [facility] [address] CREATININE 0.7 mg/dL 0.7-1.2 UREA NITROGEN 12 mg/dL 8-26 GLUCOSE 84 mg/dL 70-100 SODIUM 135 mmol/L L 136-145 POTASSIUM 3.8 mmol/L 3.5-5.1 CHLORIDE 104 mmol/L 98-107 CO2 24 mmol/L 22-29 CALCIUM 9.3 mg/dL 8.4-10.2 MAGNESIUM 2.0 mg/dL 1.6-2.6 ANION GAP 7 mmol/L 5-15 .CREAT EGFR(CKD-EPI) >90 >60 Jul 05, 2024 07:16 AM [facility] CBC Specimen Type: BLOOD No comment entered. Ordering Provider: JUANCARLOS ECHOLS S Report Released Date/Time: Jul 04, 2024 09:39 AM Reporting Lab: [facility] [address] Performing Lab: [facility] [address] WBC 18.3 H 4.0-11.0 RBC 4.49 L 4.60-6.20 HGB 14.1 g/dL 13.5-17.9 HCT 43.4 41.0-54.0 MCV 96.7 fL 80.0-100.0 MCH 31.4 pg 27.0-33.0 MCHC 32.5 g/dL 32.0-37.5 PLT 317 150-400 MPV 10.0 fL 9.1-13.0 RDW 13.9 11.5-14.5 Jul 04, 2024 07:17 AM [facility] BASIC METABOLIC PANEL+MG Specimen Type: PLASMA No comment entered. Ordering Provider: GABINO CAMERON Report Released Date/Time: Jul 03, 2024 06:31 PM Reporting Lab: [facility] [address] Performing Lab: [facility] [address] CREATININE 0.7 mg/dL 0.7-1.2 UREA NITROGEN 16 mg/dL 8-26 GLUCOSE 129 mg/dL H 70-100 SODIUM 137 mmol/L 136-145 POTASSIUM 3.7 mmol/L 3.5-5.1 CHLORIDE 107 mmol/L 98-107 CO2 22 mmol/L 22-29 CALCIUM 9.0 mg/dL 8.4-10.2 MAGNESIUM 1.9 mg/dL 1.6-2.6 ANION GAP 8 mmol/L 5-15 .CREAT EGFR(CKD-EPI) >90 >60 Jul 04, 2024 07:17 AM [facility] PHOSPHORUS Specimen Type: PLASMA No comment entered. Ordering Provider: GABINO CAMERON Report Released Date/Time: Jul 03, 2024 06:31 PM Reporting Lab: [facility] [address] Performing Lab: [facility] [address] PHOSPHORUS 2.8 mg/dL 2.3-4.3 Jul 04, 2024 07:16 AM [facility] CBC Specimen Type: BLOOD No comment entered. Ordering Provider: GABINO CAMERON Report Released Date/Time: Jul 03, 2024 06:31 PM Reporting Lab: [facility] [address] Performing Lab: [facility] [address] WBC 20.6 H 4.0-11.0 RBC 4.63 4.60-6.20 HGB 14.2 g/dL 13.5-17.9 HCT 43.4 41.0-54.0 MCV 93.7 fL 80.0-100.0 MCH 30.7 pg 27.0-33.0 MCHC 32.7 g/dL 32.0-37.5 PLT 329 150-400 MPV 10.4 fL 9.1-13.0 RDW 13.8 11.5-14.5 Jul 04, 2024 07:16 AM [facility] CBC & DIFF Specimen Type: BLOOD Comment: Manual Differential Performed Ordering Provider: GABINO CAMERON Report Released Date/Time: Jul 03, 2024 06:31 PM Reporting Lab: [facility] [address] Performing Lab: [facility] [address] WBC 20.6 H 4.0-11.0 RBC 4.63 4.60-6.20 [...] MORPHOLOGY PRESENT Jul 04, 2024 07:15 AM [facility] BNP Specimen Type: PLASMA No comment entered. Ordering Provider: GABINO CAMERON Report Released Date/Time: Jul 03, 2024 06:31 PM Reporting Lab: [facility] [address] Performing Lab: [facility] [address] BNP 292 pg/mL H <99 Jul 03, 2024 10:32 PM [facility] FINGERSTICK GLUCOSE Specimen Type: BLOOD Comment: Save Result Nurse Notified Ordering Provider: KATELYNN PERSON Report Released Date/Time: Jul 03, 2024 10:50 PM Reporting Lab: [facility] [address] Performing Lab: [facility] [address] FINGERSTICK GLUCOSE 126 mg/dL H 70-100 Jul 03, 2024 05:33 PM [facility] FINGERSTICK GLUCOSE Specimen Type: BLOOD Comment: Save Result Nurse Notified Ordering Provider: KATELYNN PERSON Report Released Date/Time: Jul 03, 2024 05:46 PM Reporting Lab: [facility] [address] Performing Lab: [facility] [address] FINGERSTICK GLUCOSE 141 mg/dL H 70-100 Jul 03, 2024 02:31 PM [facility] POC ABG/ELECTROLYTES Specimen Type: ARTERIAL BLOOD Comment: FIO2 = 97% Patient Temp: 36.0 C Sample Type = ARTERIAL Ordering Provider: MAZIN ARREDONDO Report Released Date/Time: Jul 03, 2024 01:48 PM Reporting Lab: [facility] [address] Performing Lab: [facility] [address] POC PH 7.387 7.35-7.45 POC PCO2 34.4 [...] H 80.0-105.0 Jul 03, 2024 01:05 PM [facility] POC ABG/ELECTROLYTES Specimen Type: ARTERIAL BLOOD Comment: FIO2 = 53% Patient Temp: 36.2 C Sample Type = ARTERIAL Ordering Provider: MAZIN ARREDONDO Report Released Date/Time: Jul 03, 2024 01:48 PM Reporting Lab: [facility] [address] Performing Lab: [facility] [address] POC PH 7.280 L 7.35-7.45 POC PCO2 [...] mm[Hg] 80.0-105.0 Jul 03, 2024 06:15 AM [facility] URINALYSIS Specimen Type: URINE No comment entered. Ordering Provider: MARYBETH POWELL Report Released Date/Time: Jun 12, 2024 04:01 PM Reporting Lab: [facility] [address] Performing Lab: [facility] [address] URINE COLOR YELLOW SPECIFIC GRAVITY 1.031 1.003-1.03 [...] 250 NEGATIVE Jul 03, 2024 06:13 AM [facility] CBC Specimen Type: BLOOD No comment entered. Ordering Provider: MARYBETH POWELL Report Released Date/Time: Jun 12, 2024 03:59 PM Reporting Lab: [facility] [address] Performing Lab: [facility] [address] WBC 15.8 H 4.0-11.0 RBC 5.11 4.60-6.20 HGB 16.1 g/dL 13.5-17.9 HCT 49.1 41.0-54.0 MCV 96.1 fL 80.0-100.0 MCH 31.5 pg 27.0-33.0 MCHC 32.8 g/dL 32.0-37.5 PLT 357 150-400 MPV 9.8 fL 9.1-13.0 RDW 13.7 11.5-14.5 Jun 24, 2024 09:50 AM [facility] BASIC METABOLIC PANEL+MG Specimen Type: PLASMA Comment: Specimen received in Lab at: [id number] Ordering Provider: JEVON ZAZUETA Report Released Date/Time: Jun 23, 2024 06:07 PM Reporting Lab: [facility] [address] Performing Lab: [facility] [address] CREATININE 0.8 mg/dL 0.7-1.2 UREA NITROGEN 13 mg/dL 8-26 GLUCOSE 135 mg/dL H 70-100 SODIUM 135 mmol/L L 136-145 POTASSIUM 3.6 mmol/L 3.5-5.1 CHLORIDE 103 mmol/L 98-107 CO2 24 mmol/L 22-29 CALCIUM 9.2 mg/dL 8.4-10.2 MAGNESIUM 1.9 mg/dL 1.6-2.6 ANION GAP 8 mmol/L 5-15 .CREAT EGFR(CKD-EPI) >90 >60 Jun 24, 2024 09:50 AM [facility] CBC Specimen Type: BLOOD Comment: Specimen received in Lab at: 0948 Ordering Provider: JEVON ZAZUETA Report Released Date/Time: Jun 23, 2024 06:07 PM Reporting Lab: [facility] [address] Performing Lab: [facility] [address] WBC 15.5 H 4.0-11.0 RBC 4.93 4.60-6.20 HGB 15.2 g/dL 13.5-17.9 HCT 46.5 41.0-54.0 MCV 94.3 fL 80.0-100.0 MCH 30.8 pg 27.0-33.0 MCHC 32.7 g/dL 32.0-37.5 PLT 223 150-400 MPV 11.4 fL 9.1-13.0 RDW 13.9 11.5-14.5 Jun 23, 2024 07:52 AM [facility] COMPREHENSIVE METABOLIC PANEL+MG Specimen Type: PLASMA No comment entered. Ordering Provider: JEVON ZAZUETA Report Released Date/Time: Jun 22, 2024 05:51 PM Reporting Lab: [facility] [address] Performing Lab: [facility] [address] CREATININE 0.7 mg/dL 0.7-1.2 UREA NITROGEN 16 [...] >90 >60 Jun 23, 2024 07:52 AM [facility] CBC & DIFF Specimen Type: BLOOD Comment: Automated Differential Performed Ordering Provider: JEVON ZAZUETA Report Released Date/Time: Jun 22, 2024 05:51 PM Reporting Lab: [facility] [address] Performing Lab: [facility] [address] WBC 14.9 H 4.0-11.0 RBC 5.09 4.60-6.20 [...] 0.1 0.0-0.1 Jun 22, 2024 06:10 PM [facility] COMPREHENSIVE METABOLIC PANEL+MG Specimen Type: PLASMA No comment entered. Ordering Provider: JEVON ZAZUETA Report Released Date/Time: Jun 22, 2024 05:51 PM Reporting Lab: [facility] [address] Performing Lab: [facility] [address] CREATININE 0.7 mg/dL 0.7-1.2 UREA NITROGEN 17 [...] >90 >60 Jun 22, 2024 06:10 PM [facility] CBC Specimen Type: BLOOD No comment entered. Ordering Provider: JEVON ZAZUETA Report Released Date/Time: Jun 22, 2024 05:51 PM Reporting Lab: [facility] [address] Performing Lab: [facility] [address] WBC 16.9 H 4.0-11.0 RBC 5.28 4.60-6.20 HGB 16.9 g/dL 13.5-17.9 HCT 50.4 41.0-54.0 MCV 95.5 fL 80.0-100.0 MCH 32.0 pg 27.0-33.0 MCHC 33.5 g/dL 32.0-37.5 PLT 223 150-400 MPV 10.9 fL 9.1-13.0 RDW 14.0 11.5-14.5 Jun 21, 2024 06:48 PM [facility] URINALYSIS Specimen Type: URINE No comment entered. Ordering Provider: DELIA MARTINEZ Report Released Date/Time: Jun 21, 2024 05:45 PM Reporting Lab: [facility] [address] Performing Lab: [facility] [address] URINE COLOR YELLOW SPECIFIC GRAVITY 1.041 H [...] 500 NEGATIVE Jun 21, 2024 05:34 PM [facility] POC CREATININE Specimen Type: BLOOD No comment entered. Ordering Provider: DELIA MARTINEZ Report Released Date/Time: Jun 21, 2024 06:07 PM Reporting Lab: [facility] [address] Performing Lab: [facility] [address] POC CREATININE 1.1 mg/dL 0.6-1.3 Jun 21, 2024 05:30 PM [facility] POC ABG/LACTATE Specimen Type: VENOUS BLOOD No comment entered. Ordering Provider: DELIA MARTINEZ Report Released Date/Time: Jun 21, 2024 06:07 PM Reporting Lab: [facility] [address] Performing Lab: [facility] [address] POC PH 7.470 H 7.31-7.41 POC PCO2 31.2 mm[Hg] L 41.00-51 .0 0 POC PO2 46 mm[Hg] H 35.0-40.0 POC TCO2 24 mmol/L 24.0-29.0 POC HCO3 22.7 mmol/L L 23.0-28.0 POC BE ECT -1 mmol/L POC SO2 85 H 70-75 POC LACTATE 1.85 mmol/L 0.90-1.70 Jun 21, 2024 05:24 PM [facility] PROTHROMBIN TIME/INR Specimen Type: PLASMA No comment entered. Ordering Provider: DELIA MARTINEZ Report Released Date/Time: Jun 21, 2024 05:30 PM Reporting Lab: [facility] [address] Performing Lab: [facility] [address] .INR 1.2 H 0.8-1.1 .PT 13.9 s H 9.4-12.5 Jun 21, 2024 05:24 PM [facility] LIPASE Specimen Type: PLASMA No comment entered. Ordering Provider: DELIA MARTINEZ Report Released Date/Time: Jun 21, 2024 05:30 PM Reporting Lab: [facility] [address] Performing Lab: [facility] [address] LIPASE 32 U/L <60 Jun 21, 2024 05:24 PM [facility] EXTRA GOLD GEL TUBE Specimen Type: SERUM No comment entered. Ordering Provider: DELIA MARTINEZ Report Released Date/Time: Jun 21, 2024 05:41 PM Reporting Lab: [facility] [address] Performing Lab: [facility] [address] EXTRA GOLD GEL TUBE RECEIVED Jun 21, 2024 05:24 PM [facility] COMPREHENSIVE METABOLIC PANEL+MG Specimen Type: PLASMA No comment entered. Ordering Provider: DELIA MARTINEZ Report Released Date/Time: Jun 21, 2024 05:30 PM Reporting Lab: [facility] [address] Performing Lab: [facility] [address] CREATININE 0.9 mg/dL 0.7-1.2 UREA NITROGEN 29 [...] mg/dL <0.5 Jun 21, 2024 05:24 PM [facility] CBC & DIFF Specimen Type: BLOOD Comment: Manual Differential Performed Ordering Provider: DELIA MARTINEZ Report Released Date/Time: Jun 21, 2024 05:30 PM Reporting Lab: [facility] [address] Performing Lab: [facility] [address] WBC 21.3 H 4.0-11.0 RBC 5.48 4.60-6.20 [...] MORPHOLOGY PRESENT Jun 08, 2024 10:59 AM [facility] PROTHROMBIN TIME/INR Specimen Type: PLASMA No comment entered. Ordering Provider: MARYBETH POWELL Report Released Date/Time: May 28, 2024 09:02 AM Reporting Lab: [facility] [address] Performing Lab: [facility] [address] .INR 1.0 0.8-1.1 .PT 11.8 s 9.4-12.5 Jun 08, 2024 10:59 AM [facility] HEMOGLOBIN A1C Specimen Type: BLOOD Comment: [...] May 28, 2024 09:02 AM Reporting Lab: [facility] [address] Performing Lab: [facility] [address] HEMOGLOBIN A1C 4.9 4.0-6.0 Jun 08, 2024 10:59 AM [facility] CBC Specimen Type: BLOOD No comment entered. Ordering Provider: MARYBETH POWELL Report Released Date/Time: May 28, 2024 09:02 AM Reporting Lab: [facility] [id number] Performing Lab: [facility] [id number] WBC 16.1 H 4.0-11.0 RBC 5.02 4.60-6.20 HGB 16.0 g/dL 13.5-17.9 HCT 47.1 41.0-54.0 MCV 93.8 fL 80.0-100.0 MCH 31.9 pg 27.0-33.0 MCHC 34.0 g/dL 32.0-37.5 PLT 228 150-400 MPV 10.3 fL 9.1-13.0 RDW 14.6 H 11.5-14.5 Jun 08, 2024 10:59 AM [facility] BASIC METABOLIC PANEL+MG Specimen Type: PLASMA No comment entered. Ordering Provider: MARYBETH POWELL Report Released Date/Time: May 28, 2024 09:02 AM Reporting Lab: [facility] [phone] Performing Lab: [facility] [phone] CREATININE 0.9 mg/dL 0.7-1.2 UREA NITROGEN 15 [...] Source Jul 03, 2024 11:26 PM 3 [facility] Jul 03, 2024 10:33 PM 5 [facility] Jul 03, 2024 08:26 PM 3 [facility] Jul 03, 2024 07:58 PM 5 [facility] Jul 03, 2024 07:25 PM 3 [facility] Social History: Smoking Status (Most current) [...] 15, 2024 08:30 AM [facility] 15 YRS OR MORE [facility] May 06, 2023 11:30 AM 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 READING PHYSICIAN: Sarbjit Vaughn M.D. -[id number] 07/08/2024 12:[address] [facility] National Teleradiology Program [phone] (For Medical Practitioner Use Only) Attention Patients / Veterans: If you have questions or concerns about these test results, please contact your ordering provider or primary care team. Primary Interpreting Staff: RADIOLOGY,OUTSIDE SERVICE, Staff Physician / RADIOLOGY,OUTSIDE SERVICE [facility] Jul 08, 2024 10:[address] (AP) ABDOMEN/PE LVIS W CONTRAST: FLACA WEAVER [id number] -1950 M Exm Date: JUL 08, 2024@10:00 Req Phys: KATELYNN PERSON Pat Loc: 2KG/07-08-2024@12:07 Img Loc: CT IMAGING Service: [place] [address] (Case 22 COMPLETE) CT (AP) ABDOMEN/PELVIS W CONTRAST(CT Detailed) CPT:16326 Contrast Media : Non-ionic Iodinated Reason for [...] 08, 2024 Date Verified: JUL 08, 2024 Home Service Demonstrator E-Sig: Report: CT (AP) ABDOMEN/PELVIS W CONTRAST [...] as noted above READING PHYSICIAN: Celestino Blanc -[id number] 07/08/2024 13:[address] [facility] National Teleradiology Program [phone] (For Medical Practitioner Use Only) Attention Patients / Veterans: If you have questions or concerns about these test results, please contact your ordering provider or primary care team. Primary Interpreting Staff: RADIOLOGY,OUTSIDE SERVICE, Staff Physician / RADIOLOGY,OUTSIDE SERVICE [facility] Jun 22, 2024 11:49 AM ABSCESS DRAIN PLAC EMENT PERITONEAL (P): FLACA WEAVER [id number] -1950 M Exm Date: JUN 22, 2024@11:49 Req Phys: ANGELA HOLDEN Loc: [facility]06-22-2024@17:14 Img Loc: INTERVENTIONAL RADIOLOGY Service: [place] [address] (Case [id number] COMPLETE) IR PERITONEAL/RETROPERITONEAL PER(ANI Detailed) CPT:34613 Reason for Study: diverticulitis with abscess (Case [id number] COMPLETE) IR MOD SEDATION 10-22 MIN (ANI Detailed) CPT:02377 Clinical History: IS NOT under investigation for COVID-19 or is COVID-19 negative 73 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 please place abscess drain. Contact number for responsible provider who can be reached for any questions or notifications of critical findings: [phone] n/a LAST CREATININE 0.9 (06/21/24) Report Status: Verified Date Reported: JUN 22, 2024 Date Verified: JUN 22, 2024 Home Service Demonstrator E-Sig:/ES/LISA PENDLETON MD Report: PROCEDURES: Placement of [...] Using real-time CT fluoroscopy, a 5 [place] [employer] catheter was advanced into the collection in the left pelvis. A wire was coiled in the collection. The tract into the collection was dilated to accommodate the 12 [place] locking pigtail drainage catheter. There was return [...] Primary Interpreting Staff: LISA PENDLETON MD, RADIOLOGIST (Home Service Demonstrator) /JRT LISA PENDLETON [facility] Jun 22, 2024 11:[address] NEEDLE PLACEMEN T (P): MEGFLACADARCI LOBO [id number] -1950 M Exm Date: JUN 22, 2024@11:48 Req Phys: ANGELA HOLDEN Loc: [facility]/06-22-2024@17:14 Img Loc: CT IMAGING Service: [place] [address] (Case [id number] COMPLETE) CT SCAN FOR NEEDLE PLACEMENT (CT Detailed) CPT:74218 Reason for Study: l pelvic abscess drain Clinical History: Report Status: Verified Date Reported: JUN 22, 2024 Date Verified: JUN 22, 2024 Home Service Demonstrator E-Sig:/ES/LISA PENDLETON MD Report: PROCEDURES: Placement of [...] Using real-time CT fluoroscopy, a 5 [place] [employer] catheter was advanced into the collection in the left pelvis. A wire was coiled in the collection. The tract into the collection was dilated to accommodate the 12 [place] locking pigtail drainage catheter. There was return [...] Primary Interpreting Staff: LISA PENDLETON MD, RADIOLOGIST (Home Service Demonstrator) /JRLISA [facility] Jun 21, 2024 06:[address] (AP) ABDOMEN/PE LVIS (P): FLACA WEAVER [id number] -1950 M Exm Date: JUN 21, 2024@18:09 Req Phys: DELIA MARTINEZ Loc: [facility] EM[facility]ENCY DEPT WALK-IN (Re Img Loc: CT IMAGING Service: [place] [address] (Case [id number] COMPLETE) CT (AP) ABDOMEN/PELVIS W CONTRAST(CT Detailed) CPT:14684 Contrast Media : Non-ionic Iodinated Reason for [...] 21, 2024 Date Verified: JUN 21, 2024 Home Service Demonstrator E-Sig:/ES/CARLOS A CUNNINGHAM DO Report: EXAMINATION: CT [...] Interpreting Staff: CARLOS A CUNNINGHAM DO, RADIOLOGIST (Home Service Demonstrator) /CARLOS A ROWELL [facility] Pathology Reports: +/- 30 days [...] 2024@10:40:48 ENTRY DATE: JUL 06, 2024@10:40:48 AUTHOR: DEUARDO PALOMARES EXP COSIGNER: URGENCY: STATUS: COMPLETED $APHDR Reporting Lab: [facility] [CLIA# [id number]] [place] [address] - - - - - - - [...] - PATHOLOGY REPORT Accession No. [id number] - - - - - - - [...] - PATHOLOGY REPORT Accession No. [id number] - - - - - - - [...] Second circumferential surgical margin, en face; E-F: Prop Making Supervisor diverticula; G: Prop Making Supervisor section of mesentery; H: Random cash posting representative section of additional adipose tissue fragment. 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 WEAVER STANDARD FORM 515 ID:[id number] SEX:M :1950 AGE: 73 LOC:52410 ADM:Jun DX:DIVERTICULITIS PCP: Jatinder Cabrera /alexi/ EDUARDO PALOMARES MD STAFF PATHOLOGIST Signed: 07/06/2024 10:40 EDUARDO PALOMARES [facility] Jun 22, 2024 01:15 PM LR MICROBIOLOGY RE PORT: Reporting Lab: [facility] [CLIA# [id number]] [place] [address] Accession [UID]: [id number] [[id number]] Received: Jun 22, 2024@13:38 Collection sample: FLUID Collection date: Jun 22, 2024 13:15 Provider: ANGELA HOLDEN Comment on specimen: LLQ ABSCESS, RECEIVED IN ANAEROBIC TRANSPORT VIAL Test(s) ordered: GRAM STAIN.................... completed: Jun 22, 2024 15:03 CULTURE & SUSCEPTIBILITY...... completed: Jun 25, 2024 * BACTERIOLOGY FINAL REPORT => Jun 25, 2024 10:56 TECH CODE: [id number] GRAM STAIN: DIRECT SMEAR of specimen before [...] -=--=--=--=--=--=--=-- Performing Laboratory: Bacteriology Report Performed By: [facility] [CLIA# [id number]] [place] [address] [facility] Jun 22, 2024 01:15 PM LR MICROBIOLOGY RE PORT: Reporting Lab: [facility] [CLIA# [id number]] [place] [address] Accession [UID]: [id number] [[id number]] Received: Jun 22, 2024@13:38 Collection sample: FLUID Collection date: Jun 22, 2024 13:15 Provider: ANGELA HOLDEN Comment on specimen: LLQ ABSCESS, RECEIVED IN ANAEROBIC TRANSPORT VIAL Test(s) ordered: ANAEROBIC CULTURE............. completed: Jun 28, 2024 * BACTERIOLOGY FINAL REPORT => Jun 28, 2024 10:08 TECH CODE: [id number] CULTURE RESULTS: HEAVY GROWTH MIXED ANAEROBES Comment: including the followin+ Bacteroides fragilis 4+ Bacteroides vulgatus 4+ Clostridium innocuum Beta-lactamase negative 4+ Bacteroides caccae 4+ Parvimonas micra 4+ Bacteroides uniformis 4+ Gemella morbillorum 4+ anaerobic small, Gram Positive Rods 4+ Bacteroides thetaiotaomicron Standard workup is now complete. Bacteriology Remark(s): THIS REPORT IS FINAL =--=--=--=--=--=--=--=--=--= --=--=--=--=--=--=--=--=--=- -=--=--=--=--=--=--=-- Performing Laboratory: Bacteriology Report Performed By: [facility] [CLIA# [id number]] [place] [address] [facility] Jun 21, 2024 06:12 PM LR MICROBIOLOGY RE PORT: Reporting Lab: [facility] [CLIA# [id number]] [place] [address] Accession [UID]: [id number] [[id number]] Received: Jun 21, 2024@18:12 Collection sample: BLOOD [...] -=--=--=--=--=--=--=-- Performing Laboratory: Bacteriology Report Performed By: [facility] [CLIA# [id number]] [place] [address] [facility] Jun 21, 2024 06:11 PM LR MICROBIOLOGY RE PORT: Reporting Lab: [facility] [CLIA# [id number]] [place] [address] Accession [UID]: [id number] [[id number]] Received: Jun 21, 2024@18:11 Collection sample: BLOOD [...] -=--=--=--=--=--=--=-- Performing Laboratory: Bacteriology Report Performed By: [facility] [CLIA# [id number]] [place] [address] [facility] Jun 08, 2024 11:00 AM LR MICROBIOLOGY RE PORT: Reporting Lab: [facility] [CLIA# [id number]] [place] [address] Accession [UID]: [id number] [[id number]] Received: Jun 08, 2024@11:00 Collection sample: URINE Collection date: Jun 08, 2024 11:00 Provider: MARYBETH POWELL Comment on specimen: urine Test(s) ordered: CULTURE & SUSCEPTIBILITY...... completed: Jun 09, 2024 * BACTERIOLOGY FINAL REPORT => Jun 09, 2024 19:12 TECH CODE: [id number] CULTURE RESULTS: ESCHERICHIA COLI - Quantity: >100,000 [...] -=--=--=--=--=--=--=-- Performing Laboratory: Bacteriology Report Performed By: [facility] [CLIA# [id number]] [place] [address] [facility]
--- OUTSIDE RECORDS SUMMARY | 2024-07-16 07:39 | XMS_ITS | Encounter Summary ---
Author Name [facility] [place] Organization [facility] [place] [facility] [place] Address [address] [place] [address] Care Team Providers Care Websphere Message Broker Developer Name Role Phone JATINDER CABRERA Primary Care [...] PART A Sep 29, 2016 PART A [id number] [phone] JUDY WEAVER PATIENT Selected Encounter This section includes the information on record at [place] for the Encounter. Date/Time Encounter Type Encounter Description Reason Provider Source Jul 03, 2024 10:23 AM OFFICE O/P NEW MOD 45 MIN ANES SPECIAL PROCS IN OR SUITE ICD-10-CM Z01.818 Encounter for other preprocedural examination DADA CARBONE Encounter Template Text not used by [place] Assessments - Encounter Diagnoses This section includes the primary and secondary diagnoses documented for the Encounter. Date/Time Primary/Secondary Diagnosis Diagnosis Name Provider Source Jul 03, 2024 10:23 AM PRIMARY Encounter for other preprocedural examination DADA CARBONE [facility] Plan of Treatment: Future Appointments (+ 6 months) and Future Tests (+/- 45 days) The Plan of Treatment section includes future care activities for the patient from all [place] [facility] This section includes future appointments and future orders which are active, pending or scheduled. Future Appointments This section includes appointments that were scheduled to occur 6 months from the date of the Encounter, up to a maximum of 20 appointments. The data comes from all [facility] facilities. Appointment Date/Time Appointment Type Appointme nt Facility Name Jul 13, 2024 08:15 AM AMBULATORY - NONE [facility] Active, Pending, and Scheduled Orders This section includes a listing of several types of active, pending, and scheduled orders, including clinic medications orders, diagnostic test orders, procedure orders and consult orders; where the start date of the order is 45 days before the date of the Encounter or 45 days after the date of theEncounter. The data comes from all [facility]. Test Date/Time Test Type Test Details Facility Name May 28, 2024 12:00 AM Laboratory - Blood Bank Order TYPE & SCREEN - LAB BLOOD SP [facility] Jun 08, 2024 09:57 AM Laboratory - Chemi stry Order URINALYSIS URINE WC ONCE [facility] Jun 12, 2024 12:00 AM Laboratory - Chemi stry Order BNP PLASMA SP ONCE [facility] Jun 21, 2024 05:45 PM Laboratory - Blood Bank Order TYPE & SCREEN - LAB BLOOD [facility] Jul 03, 2024 12:00 AM Laboratory - Blood Bank Order TYPE & SCREEN - LAB BLOOD [facility] Jul 16, 2024 12:00 AM Laboratory - Chemi stry Order CBC BLOOD SP ONCE [facility] Jul 17, 2024 12:00 AM Laboratory - Chemi stry Order BASIC METABOLIC PANEL+MG PLASMA SP ONCE [facility] Lab Results: +/- [...] Comment Jul 10, 2024 07:[address] [facility] PHOSPHORUS Specimen Type: PLASMA No comment entered. Ordering Provider: JUANCARLOS ECHOLS Report Released Date/Time: Jul 09, 2024 12:23 PM Reporting Lab: [facility] [address] Performing Lab: [facility] [address] PHOSPHORUS 3.0 mg/dL 2.3-4.3 Jul 10, 2024 07:[address] [facility] BASIC METABOLIC PANEL+MG Specimen Type: PLASMA No comment entered. Ordering Provider: JUANCARLOS ECHOLS Report Released Date/Time: Jul 09, 2024 12:23 PM Reporting Lab: [facility] [address] Performing Lab: [facility] [address] CREATININE 0.7 mg/dL 0.7-1.2 UREA NITROGEN 27 mg/dL H 8-26 GLUCOSE 104 mg/dL H 70-100 SODIUM 133 mmol/L L 136-145 POTASSIUM 4.3 mmol/L 3.5-5.1 CHLORIDE 102 mmol/L 98-107 CO2 19 mmol/L L 22-29 CALCIUM 10.1 mg/dL 8.4-10.2 MAGNESIUM 1.9 mg/dL 1.6-2.6 ANION GAP 12 mmol/L 5-15 .CREAT EGFR(CKD-EPI) >90 >60 Jul 10, 2024 07:[address] [facility] CBC Specimen Type: BLOOD No comment entered. Ordering Provider: JUANCARLOS ECHOLS S Report Released Date/Time: Jul 09, 2024 12:23 PM Reporting Lab: [facility] [address] Performing Lab: [facility] [address] WBC 18.8 H 4.0-11.0 RBC 5.08 4.60-6.20 HGB 15.9 g/dL 13.5-17.9 HCT 46.8 41.0-54.0 MCV 92.1 fL 80.0-100.0 MCH 31.3 pg 27.0-33.0 MCHC 34.0 g/dL 32.0-37.5 PLT 479 H 150-400 MPV 10.2 fL 9.1-13.0 RDW 13.7 11.5-14.5 Jul 09, 2024 07:[address] [facility] CBC Specimen Type: BLOOD No comment entered. Ordering Provider: QUYNH WEISS AV Report Released Date/Time: Jul 08, 2024 06:18 PM Reporting Lab: [facility] [address] Performing Lab: [facility] [address] WBC 15.3 H 4.0-11.0 RBC 4.91 4.60-6.20 HGB 15.1 g/dL 13.5-17.9 HCT 45.7 41.0-54.0 MCV 93.1 fL 80.0-100.0 MCH 30.8 pg 27.0-33.0 MCHC 33.0 g/dL 32.0-37.5 PLT 443 H 150-400 MPV 10.0 fL 9.1-13.0 RDW 13.5 11.5-14.5 Jul 08, 2024 10:[address] [facility] URINALYSIS Specimen Type: URINE No comment entered. Ordering Provider: KATELYNN PERSON Report Released Date/Time: Jul 08, 2024 08:41 AM Reporting Lab: [facility] [address] Performing Lab: [facility] [address] URINE COLOR YELLOW SPECIFIC GRAVITY >1.050 H [...] NEGATIVE Jul 08, 2024 09:[address] [facility] CBC Specimen Type: BLOOD Comment: Specimen received in Lab at: 0952 Ordering Provider: JUANCARLOS ECHOLS Report Released Date/Time: Jul 07, 2024 04:49 PM Reporting Lab: [facility] [address] Performing Lab: [facility] [address] WBC 17.5 H 4.0-11.0 RBC 4.88 4.60-6.20 HGB 14.9 g/dL 13.5-17.9 HCT 45.7 41.0-54.0 MCV 93.6 fL 80.0-100.0 MCH 30.5 pg 27.0-33.0 MCHC 32.6 g/dL 32.0-37.5 PLT 472 H 150-400 MPV 10.2 fL 9.1-13.0 RDW 13.7 11.5-14.5 Jul 08, 2024 09:[address] [facility] PHOSPHORUS Specimen Type: PLASMA Comment: Specimen received in Lab at: 0952 Ordering Provider: JUACNARLOS ECHOLS Report Released Date/Time: Jul 07, 2024 04:49 PM Reporting Lab: [facility] [address] Performing Lab: [facility] [address] PHOSPHORUS 2.6 mg/dL 2.3-4.3 Jul 08, 2024 09:[address] [facility] BASIC METABOLIC PANEL+MG Specimen Type: PLASMA Comment: Specimen received in Lab at: 0952 Ordering Provider: JUANCARLOS ECHOLS Report Released Date/Time: Jul 07, 2024 04:49 PM Reporting Lab: [facility] [address] Performing Lab: [facility] [address] CREATININE 0.9 mg/dL 0.7-1.2 UREA NITROGEN 26 mg/dL 8-26 GLUCOSE 128 mg/dL H 70-100 SODIUM 134 mmol/L L 136-145 POTASSIUM 3.4 mmol/L L 3.5-5.1 CHLORIDE 100 mmol/L 98-107 CO2 24 mmol/L 22-29 CALCIUM 9.8 mg/dL 8.4-10.2 MAGNESIUM 1.8 mg/dL 1.6-2.6 ANION GAP 10 mmol/L 5-15 .CREAT EGFR(CKD-EPI) >90 >60 Jul 07, 2024 02:[address] [facility] C DIFF PANEL Specimen Type: FECES No comment entered. Ordering Provider: JEVON ZAZUETA Report Released Date/Time: Jul 07, 2024 12:26 PM Reporting Lab: [facility] [address] Performing Lab: [facility] [address] C DIFF TOX B GENE PCR NEGATIVE Negative Jul 07, 2024 07:[address] [facility] PHOSPHORUS Specimen Type: PLASMA No comment entered. Ordering Provider: JEVON ZAZUETA Report Released Date/Time: Jul 06, 2024 03:44 PM Reporting Lab: [facility] [address] Performing Lab: [facility] [address] PHOSPHORUS 3.1 mg/dL 2.3-4.3 Jul 07, 2024 07:[address] [facility] BASIC METABOLIC PANEL+MG Specimen Type: PLASMA No comment entered. Ordering Provider: JEVON ZAZUETA Report Released Date/Time: Jul 06, 2024 03:44 PM Reporting Lab: [facility] [address] Performing Lab: [facility] [address] CREATININE 0.9 mg/dL 0.7-1.2 UREA NITROGEN 20 mg/dL 8-26 GLUCOSE 157 mg/dL H 70-100 SODIUM 136 mmol/L 136-145 POTASSIUM 3.7 mmol/L 3.5-5.1 CHLORIDE 102 mmol/L 98-107 CO2 21 mmol/L L 22-29 CALCIUM 9.8 mg/dL 8.4-10.2 MAGNESIUM 1.9 mg/dL 1.6-2.6 ANION GAP 13 mmol/L 5-15 .CREAT EGFR(CKD-EPI) >90 >60 Jul 07, 2024 07:[address] [facility] CBC Specimen Type: BLOOD No comment entered. Ordering Provider: JEVON ZAZUETA Report Released Date/Time: Jul 06, 2024 03:44 PM Reporting Lab: [facility] [address] Performing Lab: [facility] [address] WBC 21.2 H 4.0-11.0 RBC 5.09 4.60-6.20 HGB 15.9 g/dL 13.5-17.9 HCT 48.3 41.0-54.0 MCV 94.9 fL 80.0-100.0 MCH 31.2 pg 27.0-33.0 MCHC 32.9 g/dL 32.0-37.5 PLT 500 H 150-400 MPV 10.3 fL 9.1-13.0 RDW 13.6 11.5-14.5 Jul 06, 2024 07:[address] [facility] CBC Specimen Type: BLOOD No comment entered. Ordering Provider: JEVON ZAZUETA Report Released Date/Time: Jul 05, 2024 01:22 PM Reporting Lab: [facility] [address] Performing Lab: [facility] [address] WBC 18.0 H 4.0-11.0 RBC 4.83 4.60-6.20 HGB 14.6 g/dL 13.5-17.9 HCT 45.5 41.0-54.0 MCV 94.2 fL 80.0-100.0 MCH 30.2 pg 27.0-33.0 MCHC 32.1 g/dL 32.0-37.5 PLT 368 150-400 MPV 10.4 fL 9.1-13.0 RDW 13.6 11.5-14.5 Jul 06, 2024 07:[address] [facility] PHOSPHORUS Specimen Type: PLASMA No comment entered. Ordering Provider: JEVON ZAZUETA Report Released Date/Time: Jul 05, 2024 01:22 PM Reporting Lab: [facility] [address] Performing Lab: [facility] [address] PHOSPHORUS 3.6 mg/dL 2.3-4.3 Jul 06, 2024 07:[address] [facility] BASIC METABOLIC PANEL+MG Specimen Type: PLASMA No comment entered. Ordering Provider: JEVON ZAZUETA Report Released Date/Time: Jul 05, 2024 01:22 PM Reporting Lab: [facility] [address] Performing Lab: [facility] [address] CREATININE 0.7 mg/dL 0.7-1.2 UREA NITROGEN 12 mg/dL 8-26 GLUCOSE 108 mg/dL H 70-100 SODIUM 138 mmol/L 136-145 POTASSIUM 3.4 mmol/L L 3.5-5.1 CHLORIDE 104 mmol/L 98-107 CO2 20 mmol/L L 22-29 CALCIUM 9.3 mg/dL 8.4-10.2 MAGNESIUM 1.9 mg/dL 1.6-2.6 ANION GAP 14 mmol/L 5-15 .CREAT EGFR(CKD-EPI) >90 >60 Jul 05, 2024 07:[address] [facility] MAGNESIUM Specimen Type: PLASMA No comment entered. Ordering Provider: JUANCARLOS ECHOLS Report Released Date/Time: Jul 04, 2024 09:39 AM Reporting Lab: [facility] [address] Performing Lab: [facility] [address] MAGNESIUM 2.0 mg/dL 1.6-2.6 Jul 05, 2024 07:[address] [facility] PHOSPHORUS Specimen Type: PLASMA No comment entered. Ordering Provider: JUANCARLOS ECHOLS S Report Released Date/Time: Jul 04, 2024 09:39 AM Reporting Lab: [facility] [address] Performing Lab: [facility] [address] PHOSPHORUS 2.0 mg/dL L 2.3-4.3 Jul 05, 2024 07:[address] [facility] BASIC METABOLIC PANEL+MG Specimen Type: PLASMA No comment entered. Ordering Provider: JUANCARLOS ECHOLS S Report Released Date/Time: Jul 04, 2024 09:39 AM Reporting Lab: [facility] [address] Performing Lab: [facility] [address] CREATININE 0.7 mg/dL 0.7-1.2 UREA NITROGEN 12 mg/dL 8-26 GLUCOSE 84 mg/dL 70-100 SODIUM 135 mmol/L L 136-145 POTASSIUM 3.8 mmol/L 3.5-5.1 CHLORIDE 104 mmol/L 98-107 CO2 24 mmol/L 22-29 CALCIUM 9.3 mg/dL 8.4-10.2 MAGNESIUM 2.0 mg/dL 1.6-2.6 ANION GAP 7 mmol/L 5-15 .CREAT EGFR(CKD-EPI) >90 >60 Jul 05, 2024 07:[address] [facility] CBC Specimen Type: BLOOD No comment entered. Ordering Provider: JUANCARLOS ECHOLS S Report Released Date/Time: Jul 04, 2024 09:39 AM Reporting Lab: [facility] [address] Performing Lab: [facility] [address] WBC 18.3 H 4.0-11.0 RBC 4.49 L 4.60-6.20 HGB 14.1 g/dL 13.5-17.9 HCT 43.4 41.0-54.0 MCV 96.7 fL 80.0-100.0 MCH 31.4 pg 27.0-33.0 MCHC 32.5 g/dL 32.0-37.5 PLT 317 150-400 MPV 10.0 fL 9.1-13.0 RDW 13.9 11.5-14.5 Jul 04, 2024 07:[address] [facility] BASIC METABOLIC PANEL+MG Specimen Type: PLASMA No comment entered. Ordering Provider: GABINO CAMERON Report Released Date/Time: Jul 03, 2024 06:31 PM Reporting Lab: [facility] [address] Performing Lab: [facility] [address] CREATININE 0.7 mg/dL 0.7-1.2 UREA NITROGEN 16 mg/dL 8-26 GLUCOSE 129 mg/dL H 70-100 SODIUM 137 mmol/L 136-145 POTASSIUM 3.7 mmol/L 3.5-5.1 CHLORIDE 107 mmol/L 98-107 CO2 22 mmol/L 22-29 CALCIUM 9.0 mg/dL 8.4-10.2 MAGNESIUM 1.9 mg/dL 1.6-2.6 ANION GAP 8 mmol/L 5-15 .CREAT EGFR(CKD-EPI) >90 >60 Jul 04, 2024 07:[address] [facility] PHOSPHORUS Specimen Type: PLASMA No comment entered. Ordering Provider: GABINO CAMERON Report Released Date/Time: Jul 03, 2024 06:31 PM Reporting Lab: [facility] [address] Performing Lab: [facility] [address] PHOSPHORUS 2.8 mg/dL 2.3-4.3 Jul 04, 2024 07:[address] [facility] CBC Specimen Type: BLOOD No comment entered. Ordering Provider: GABINO CAMERON Report Released Date/Time: Jul 03, 2024 06:31 PM Reporting Lab: [facility] [address] Performing Lab: [facility] [address] WBC 20.6 H 4.0-11.0 RBC 4.63 4.60-6.20 HGB 14.2 g/dL 13.5-17.9 HCT 43.4 41.0-54.0 MCV 93.7 fL 80.0-100.0 MCH 30.7 pg 27.0-33.0 MCHC 32.7 g/dL 32.0-37.5 PLT 329 150-400 MPV 10.4 fL 9.1-13.0 RDW 13.8 11.5-14.5 Jul 04, 2024 07:[address] [facility] CBC & DIFF Specimen Type: BLOOD Comment: Manual Differential Performed Ordering Provider: GABINO CAMERON Report Released Date/Time: Jul 03, 2024 06:31 PM Reporting Lab: [facility] [address] Performing Lab: [facility] [address] WBC 20.6 H 4.0-11.0 RBC 4.63 4.60-6.20 [...] PRESENT Jul 04, 2024 07:[address] [facility] BNP Specimen Type: PLASMA No comment entered. Ordering Provider: GABINO CAMERON Report Released Date/Time: Jul 03, 2024 06:31 PM Reporting Lab: [facility] [address] Performing Lab: [facility] [address] BNP 292 pg/mL H <99 Jul 03, 2024 10:[address] [facility] FINGERSTICK GLUCOSE Specimen Type: BLOOD Comment: Save Result Nurse Notified Ordering Provider: KATELYNN PERSON Report Released Date/Time: Jul 03, 2024 10:50 PM Reporting Lab: [facility] [address] Performing Lab: [facility] [address] FINGERSTICK GLUCOSE 126 mg/dL H 70-100 Jul 03, 2024 05:[address] [facility] FINGERSTICK GLUCOSE Specimen Type: BLOOD Comment: Save Result Nurse Notified Ordering Provider: KATELYNN PERSON Report Released Date/Time: Jul 03, 2024 05:46 PM Reporting Lab: [facility] [address] Performing Lab: [facility] [address] FINGERSTICK GLUCOSE 141 mg/dL H 70-100 Jul 03, 2024 02:[address] [facility] POC ABG/ELECTROLYTES Specimen Type: ARTERIAL BLOOD Comment: FIO2 = 97% Patient Temp: 36.0 C Sample Type = ARTERIAL Ordering Provider: MAZIN ARREDONDO Report Released Date/Time: Jul 03, 2024 01:48 PM Reporting Lab: [facility] [address] Performing Lab: [facility] [address] POC PH 7.387 7.35-7.45 POC PCO2 34.4 [...] 80.0-105.0 Jul 03, 2024 01:[address] [facility] POC ABG/ELECTROLYTES Specimen Type: ARTERIAL BLOOD Comment: FIO2 = 53% Patient Temp: 36.2 C Sample Type = ARTERIAL Ordering Provider: MAZIN ARREDONDO Report Released Date/Time: Jul 03, 2024 01:48 PM Reporting Lab: [facility] [address] Performing Lab: [facility] [address] POC PH 7.280 L 7.35-7.45 POC PCO2 [...] 80.0-105.0 Jul 03, 2024 06:[address] [facility] URINALYSIS Specimen Type: URINE No comment entered. Ordering Provider: MARYBETH POWELL Report Released Date/Time: Jun 12, 2024 04:01 PM Reporting Lab: [facility] [address] Performing Lab: [facility] [address] URINE COLOR YELLOW SPECIFIC GRAVITY 1.031 1.003-1.03 [...] NEGATIVE Jul 03, 2024 06:[address] [facility] CBC Specimen Type: BLOOD No comment entered. Ordering Provider: MARYBETH POWELL Report Released Date/Time: Jun 12, 2024 03:59 PM Reporting Lab: [facility] [address] Performing Lab: [facility] [address] WBC 15.8 H 4.0-11.0 RBC 5.11 4.60-6.20 HGB 16.1 g/dL 13.5-17.9 HCT 49.1 41.0-54.0 MCV 96.1 fL 80.0-100.0 MCH 31.5 pg 27.0-33.0 MCHC 32.8 g/dL 32.0-37.5 PLT 357 150-400 MPV 9.8 fL 9.1-13.0 RDW 13.7 11.5-14.5 Jun 24, 2024 09:[address] [facility] BASIC METABOLIC PANEL+MG Specimen Type: PLASMA Comment: Specimen received in Lab at: 0948 Ordering Provider: JEVON ZAZUETA Report Released Date/Time: Jun 23, 2024 06:07 PM Reporting Lab: [facility] [address] Performing Lab: [facility] [address] CREATININE 0.8 mg/dL 0.7-1.2 UREA NITROGEN 13 mg/dL 8-26 GLUCOSE 135 mg/dL H 70-100 SODIUM 135 mmol/L L 136-145 POTASSIUM 3.6 mmol/L 3.5-5.1 CHLORIDE 103 mmol/L 98-107 CO2 24 mmol/L 22-29 CALCIUM 9.2 mg/dL 8.4-10.2 MAGNESIUM 1.9 mg/dL 1.6-2.6 ANION GAP 8 mmol/L 5-15 .CREAT EGFR(CKD-EPI) >90 >60 Jun 24, 2024 09:[address] [facility] CBC Specimen Type: BLOOD Comment: Specimen received in Lab at: 0948 Ordering Provider: JEVON ZAZUETA Report Released Date/Time: Jun 23, 2024 06:07 PM Reporting Lab: [facility] [address] Performing Lab: [facility] [address] WBC 15.5 H 4.0-11.0 RBC 4.93 4.60-6.20 HGB 15.2 g/dL 13.5-17.9 HCT 46.5 41.0-54.0 MCV 94.3 fL 80.0-100.0 MCH 30.8 pg 27.0-33.0 MCHC 32.7 g/dL 32.0-37.5 PLT 223 150-400 MPV 11.4 fL 9.1-13.0 RDW 13.9 11.5-14.5 Jun 23, 2024 07:[address] [facility] COMPREHENSIVE METABOLIC PANEL+MG Specimen Type: PLASMA No comment entered. Ordering Provider: JEVON ZAZUETA Report Released Date/Time: Jun 22, 2024 05:51 PM Reporting Lab: [facility] [address] Performing Lab: [facility] [address] CREATININE 0.7 mg/dL 0.7-1.2 UREA NITROGEN 16 [...] >60 Jun 23, 2024 07:[address] [facility] CBC & DIFF Specimen Type: BLOOD Comment: Automated Differential Performed Ordering Provider: JEVON ZAZUETA Report Released Date/Time: Jun 22, 2024 05:51 PM Reporting Lab: [facility] [address] Performing Lab: [facility] [address] WBC 14.9 H 4.0-11.0 RBC 5.09 4.60-6.20 [...] 0.0-0.1 Jun 22, 2024 06:[address] [facility] CBC Specimen Type: BLOOD No comment entered. Ordering Provider: JEVON ZAZUETA Report Released Date/Time: Jun 22, 2024 05:51 PM Reporting Lab: [facility] [address] Performing Lab: [facility] [address] WBC 16.9 H 4.0-11.0 RBC 5.28 4.60-6.20 HGB 16.9 g/dL 13.5-17.9 HCT 50.4 41.0-54.0 MCV 95.5 fL 80.0-100.0 MCH 32.0 pg 27.0-33.0 MCHC 33.5 g/dL 32.0-37.5 PLT 223 150-400 MPV 10.9 fL 9.1-13.0 RDW 14.0 11.5-14.5 Jun 22, 2024 06:[address] [facility] COMPREHENSIVE METABOLIC PANEL+MG Specimen Type: PLASMA No comment entered. Ordering Provider: JEVON ZAZUETA Report Released Date/Time: Jun 22, 2024 05:51 PM Reporting Lab: [facility] [address] Performing Lab: [facility] [address] CREATININE 0.7 mg/dL 0.7-1.2 UREA NITROGEN 17 [...] >60 Jun 21, 2024 06:[address] [facility] URINALYSIS Specimen Type: URINE No comment entered. Ordering Provider: DELIA MARTINEZ Report Released Date/Time: Jun 21, 2024 05:45 PM Reporting Lab: [facility] [address] Performing Lab: [facility] [address] URINE COLOR YELLOW SPECIFIC GRAVITY 1.041 H [...] NEGATIVE Jun 21, 2024 05:[address] [facility] POC CREATININE Specimen Type: BLOOD No comment entered. Ordering Provider: DELIA MARTINEZ Report Released Date/Time: Jun 21, 2024 06:07 PM Reporting Lab: [facility] [address] Performing Lab: [facility] [address] POC CREATININE 1.1 mg/dL 0.6-1.3 Jun 21, 2024 05:[address] [facility] POC ABG/LACTATE Specimen Type: VENOUS BLOOD No comment entered. Ordering Provider: DELIA MARTINEZ Report Released Date/Time: Jun 21, 2024 06:07 PM Reporting Lab: [facility] [address] Performing Lab: [facility] [address] POC PH 7.470 H 7.31-7.41 POC PCO2 31.2 mm[Hg] L 41.00-51 .0 0 POC PO2 46 mm[Hg] H 35.0-40.0 POC TCO2 24 mmol/L 24.0-29.0 POC HCO3 22.7 mmol/L L 23.0-28.0 POC BE ECT -1 mmol/L POC SO2 85 H 70-75 POC LACTATE 1.85 mmol/L 0.90-1.70 Jun 21, 2024 05:[address] [facility] PROTHROMBIN TIME/INR Specimen Type: PLASMA No comment entered. Ordering Provider: DELIA MARTIENZ Report Released Date/Time: Jun 21, 2024 05:30 PM Reporting Lab: [facility] [address] Performing Lab: [facility] [address] .INR 1.2 H 0.8-1.1 .PT 13.9 s H 9.4-12.5 Jun 21, 2024 05:[address] [facility] EXTRA GOLD GEL TUBE Specimen Type: SERUM No comment entered. Ordering Provider: DELIA MARTINEZ Report Released Date/Time: Jun 21, 2024 05:41 PM Reporting Lab: [facility] [phone] Performing Lab: [facility] [address] EXTRA GOLD GEL TUBE RECEIVED Jun 21, 2024 05:[address] [facility] LIPASE Specimen Type: PLASMA No comment entered. Ordering Provider: DELIA MARTINEZ Report Released Date/Time: Jun 21, 2024 05:30 PM Reporting Lab: [facility] [phone] Performing Lab: [facility] [address] LIPASE 32 U/L <60 Jun 21, 2024 05:[address] [facility] COMPREHENSIVE METABOLIC PANEL+MG Specimen Type: PLASMA No comment entered. Ordering Provider: DELIA MARTINEZ Report Released Date/Time: Jun 21, 2024 05:30 PM Reporting Lab: [facility] [address] Performing Lab: [facility] [address] CREATININE 0.9 mg/dL 0.7-1.2 UREA NITROGEN 29 [...] <0.5 Jun 21, 2024 05:[address] [facility] CBC & DIFF Specimen Type: BLOOD Comment: Manual Differential Performed Ordering Provider: DELIA MARTINEZ Report Released Date/Time: Jun 21, 2024 05:30 PM Reporting Lab: [facility] [phone] Performing Lab: [facility] [address] WBC 21.3 H 4.0-11.0 RBC 5.48 4.60-6.20 [...] PRESENT Jun 08, 2024 10:[address] [facility] HEMOGLOBIN A1C Specimen Type: BLOOD [...] AM Reporting Lab: [facility] [phone] Performing Lab: [facility] [address] HEMOGLOBIN A1C 4.9 4.0-6.0 Jun 08, 2024 10:[address] [facility] PROTHROMBIN TIME/INR Specimen Type: PLASMA No comment entered. Ordering Provider: MARYBETH POWELL Report Released Date/Time: May 28, 2024 09:02 AM Reporting Lab: [facility] [address] Performing Lab: [facility] [address] .INR 1.0 0.8-1.1 .PT 11.8 s 9.4-12.5 Jun 08, 2024 10:[address] [facility] CBC Specimen Type: BLOOD No comment entered. Ordering Provider: MARYBETH POWELL Report Released Date/Time: May 28, 2024 09:02 AM Reporting Lab: [facility] [address] Performing Lab: [facility] [address] WBC 16.1 H 4.0-11.0 RBC 5.02 4.60-6.20 HGB 16.0 g/dL 13.5-17.9 HCT 47.1 41.0-54.0 MCV 93.8 fL 80.0-100.0 MCH 31.9 pg 27.0-33.0 MCHC 34.0 g/dL 32.0-37.5 PLT 228 150-400 MPV 10.3 fL 9.1-13.0 RDW 14.6 H 11.5-14.5 Jun 08, 2024 10:[address] [facility] BASIC METABOLIC PANEL+MG Specimen Type: PLASMA No comment entered. Ordering Provider: MARYBETH POWELL Report Released Date/Time: May 28, 2024 09:02 AM Reporting Lab: [facility] [phone] Performing Lab: [facility] [address] CREATININE 0.9 mg/dL 0.7-1.2 UREA NITROGEN 15 [...] Source Jul 03, 2024 11:26 PM 3 [facility] Jul 03, 2024 10:33 PM 5 [facility] Jul 03, 2024 08:26 PM 3 [facility] Jul 03, 2024 07:58 PM 5 [facility] Jul 03, 2024 07:25 PM 3 [facility] Social History: Smoking Status (Most current) [...] 2024 08:30 AM [facility] YRS OR MORE 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 May 06, 2023 11:30 AM [...] VIEWS PA A ND LAT: FLACA WEAVER [id number] -1950 M Exm Date: JUL 08, 2024@10:09 Req Phys: CHRISTIANFELIXCarynBRANDY Pat Loc: 2KG/07-08-2024@11:49 Img Loc: MAIN X-RAY Service: [place] [address] (Case 24 COMPLETE) CHEST 2 VIEWS PA AND LAT (RAD Detailed) CPT:15753 Reason for Study: Uptrending WBC, POD 5 Clinical History: Tumtum IS NOT under investigation for COVID-19 or is COVID-19 negative POD 5, work up for uptrending wbc Responsible provider name and phone number to notify for critical findings if other than user placing the order and pager listed below: User placing orders pager: Katelynn Person LAST CREATININE 0.9 (07/07/24) Report Status: Verified Date Reported: JUL 08, 2024 Date Verified: JUL 08, 2024 Binding Dyer E-Sig: Report: CHEST 2 VIEWS PA AND [...] cardiopulmonary disease. READING PHYSICIAN: Sarbjit Vaughn M.D. -[phone] 07/08/2024 12:46 EST [facility] National Teleradiology Program [phone] (For Medical Practitioner Use Only) Attention Patients / Veterans: If you have questions or concerns about these test results, please contact your ordering provider or primary care team. Primary Interpreting Staff: RADIOLOGY,OUTSIDE SERVICE, Staff Physician / RADIOLOGY,OUTSIDE SERVICE [facility] Jul 08, 2024 10:[address] (AP) ABDOMEN/PE LVIS W CONTRAST: FLACA WEAVER [id number] -1950 M Exm Date: JUL 08, 2024@10:00 Req Phys: KATELYNN PERSON A [facility] Loc: 2KG/07-08-2024@12:07 Img Loc: CT IMAGING Service: [place] [address] (Case 22 COMPLETE) CT (AP) ABDOMEN/PELVIS W CONTRAST(CT Detailed) CPT:84063 Contrast Media : Non-ionic Iodinated Reason for [...] PLASMA .CREAT EGFR(CKD-E >90 Ref: >=60 Allergies: ([facility] only) TERAZOSIN (Mar 13, 2015) Report Status: Verified Date Reported: JUL 08, 2024 Date Verified: JUL 08, 2024 Binding Dyer E-Sig: Report: CT (AP) ABDOMEN/PELVIS W CONTRAST [...] as noted above READING PHYSICIAN: Celestino Blanc -[phone] 07/08/2024 13:04 [facility] [employer] Teleradiology Program [phone] (For Medical Practitioner Use Only) Attention Patients / Veterans: If you have questions or concerns about these test results, please contact your ordering provider or primary care team. Primary Interpreting Staff: RADIOLOGY,OUTSIDE SERVICE, Staff Physician / RADIOLOGY,OUTSIDE SERVICE [facility] Jun 22, 2024 11:49 AM ABSCESS DRAIN PLAC EMENT PERITONEAL (P): FLACA WEAVER [id number] -1950 M Exm Date: JUN 22, 2024@11:49 Req Phys: ANGELA HOLDEN Loc: [facility]06-22-2024@17:14 Img Loc: INTERVENTIONAL RADIOLOGY Service: [place] [address] (Case [id number] COMPLETE) IR PERITONEAL/RETROPERITONEAL PER(ANI Detailed) CPT:38566 Reason for Study: diverticulitis with abscess (Case 3570 COMPLETE) IR MOD SEDATION 10-22 MIN (ANI Detailed) CPT:89036 Clinical History: Tumtum IS NOT under investigation for COVID-19 or is COVID-19 negative 73 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 please place abscess drain. Contact number for responsible provider who can be reached for any questions or notifications of critical findings: [phone] n/a LAST CREATININE 0.9 (06/21/24) Report Status: Verified Date Reported: JUN 22, 2024 Date Verified: JUN 22, 2024 Binding Dyer E-Sig:/ES/LISA PENDLETON MD Report: PROCEDURES: Placement of [...] anesthesia. Using real-time CT fluoroscopy, a 5 Haitian Advise Onlyesis catheter was advanced into the collection in the left pelvis. A wire was coiled in the collection. The tract into the collection was dilated to accommodate the 12 Haitian locking pigtail drainage catheter. There was return [...] Primary Interpreting Staff: LISA PENDLETON MD, RADIOLOGIST (Binding Dyer) /JRT LISA PENDLETON [facility] Jun 22, 2024 11:[address] NEEDLE PLACEMEN T (P): FLACA WEAVER [id number] -1950 M Exm Date: JUN 22, 2024@11:48 Req Phys: ADINAANGELA Mcfarlane [facility] Loc: [facility]/06-22-2024@17:14 Img Loc: CT IMAGING Service: [place] [address] (Case [id number] COMPLETE) CT SCAN FOR NEEDLE PLACEMENT (CT Detailed) CPT:21966 Reason for Study: l pelvic abscess drain Clinical History: Report Status: Verified Date Reported: JUN 22, 2024 Date Verified: JUN 22, 2024 Binding Dyer E-Sig:/ES/LISA PENDLETON MD Report: PROCEDURES: Placement of [...] anesthesia. Using real-time CT fluoroscopy, a 5 Haitian Advise Onlyesis catheter was advanced into the collection in the left pelvis. A wire was coiled in the collection. The tract into the collection was dilated to accommodate the 12 Haitian locking pigtail drainage catheter. There was return [...] Primary Interpreting Staff: LISA PENDLETON MD, RADIOLOGIST (Binding Dyer) /JRT LISA PENDLETON [facility] Jun 21, 2024 06:[address] (AP) ABDOMEN/PE LVIS (P): FLACA WEAVER [id number] -1950 M Exm Date: JUN 21, 2024@18:09 Req Phys: DELIA MARTINEZ Loc: [facility] EMERGENCY DEPT WALK-IN (Re Img Loc: CT IMAGING Service: [place] [address] (Case [id number] COMPLETE) CT (AP) ABDOMEN/PELVIS W CONTRAST(CT Detailed) CPT:08839 Contrast Media : Non-ionic Iodinated Reason for [...] PLASMA .CREAT EGFR(CKD-E >90 Ref: >=60 Allergies: ([facility] only) TERAZOSIN (Mar 13, 2015) Defer to [...] 21, 2024 Date Verified: JUN 21, 2024 Binding Dyer E-Sig:/ES/CARLOS A CUNNINGHAM DO Report: EXAMINATION: CT [...] Interpreting Staff: CARLOS A CUNNINGHAM DO, RADIOLOGIST (Binding Dyer) /CARLOS A ROWELL [facility] Pathology Reports: +/- [...] URGENCY: STATUS: COMPLETED $APHDR Reporting Lab: [facility] [CLIA# [id number]] [place] [address] - - - - - - - [...] - PATHOLOGY REPORT Accession No. [id number] - - - - - - - [...] - PATHOLOGY REPORT Accession No. [id number] - - - - - - - [...] Second circumferential surgical margin, en face; E-F: Net Software Engineer diverticula; G: Net Software Engineer section of mesentery; H: Random nutrition representative section of additional adipose tissue fragment. [...] One colonic tissue ring, bisected transversely. SS. (D[facility]: Microscopic examination performed. DIAGNOSIS: 1. Colon, sigmoid, sigmoidectomy-- - Diverticulosis with perforation and focal abscess formation 2. Colon, anastomotic rings, excision-- - Viable colonic mucosa without diagnostic abnormality /alexi/ EDUARDO PALOMARES MD STAFF PATHOLOGIST Signed Jul 06, 2024@10:40 Performing Laboratory: Surgical Pathology Report Performed By: [facility] [CLIA# [id number]] [place] [address] $FTR - - - - - - - - - - - - - - - - - - - - - - - - - - - - - - - - - - - - - - - - (End of report) EDUARDO PALOMARES MD [facility] Date Jul 06, 2024 - - - - - - - - - - - - - - - - - - - - - - - - - - - - - - - - - - - - - - - - FLACA WEAVER STANDARD FORM 515 ID:[id number] SEX:M :1950 AGE: 73 LOC:70840 ADM:Jun DX:DIVERTICULITIS PCP: Jatinder Carbera /alexi/ EDUARDO PALOMARES MD STAFF PATHOLOGIST Signed: 07/06/2024 10:[address] [facility] Jun 22, 2024 01:15 PM LR MICROBIOLOGY RE PORT: Reporting Lab: [facility] [CLIA# [id number]] [place] [address] Accession [UID]: [id number] [[id number]] Received: Jun 22, 2024@13:38 Collection sample: FLUID Collection date: Jun 22, 2024 13:15 Provider: ANGELA HOLDEN Comment on specimen: LLQ ABSCESS, RECEIVED IN ANAEROBIC TRANSPORT VIAL Test(s) ordered: GRAM STAIN.................... completed: Jun 22, 2024 15:03 CULTURE & SUSCEPTIBILITY...... completed: Jun 25, 2024 * BACTERIOLOGY FINAL REPORT => Jun 25, 2024 10:56 TECH CODE: [id number] GRAM STAIN: DIRECT SMEAR of specimen before [...] Performed By: [facility] [CLIA# [id number]] [place] [address] [facility] Jun 22, 2024 01:15 PM LR MICROBIOLOGY RE PORT: Reporting Lab: [facility] [CLIA# [id number]] [place] [address] Accession [UID]: [id number] [[id number]] Received: Jun 22, 2024@13:38 Collection sample: FLUID Collection date: Jun 22, 2024 13:15 Provider: ANGELA HOLDEN Comment on specimen: LLQ ABSCESS, RECEIVED IN ANAEROBIC TRANSPORT VIAL Test(s) ordered: ANAEROBIC CULTURE............. completed: Jun 28, 2024 * BACTERIOLOGY FINAL REPORT => Jun 28, 2024 10:08 TECH CODE: [id number] CULTURE RESULTS: HEAVY GROWTH MIXED ANAEROBES Comment: [...] Performed By: [facility] [CLIA# [id number]] [place] [address] [facility] Jun 21, 2024 06:12 PM LR MICROBIOLOGY RE PORT: Reporting Lab: [facility] [CLIA# [id number]] [place] [address] Accession [UID]: [id number] [[id number]] Received: Jun 21, 2024@18:12 Collection sample: BLOOD [...] Performed By: [facility] [CLIA# [id number]] [place] [address] [facility] Jun 21, 2024 06:11 PM LR MICROBIOLOGY RE PORT: Reporting Lab: [facility] [CLIA# [id number]] [place] [address] Accession [UID]: [id number] [[id number]] Received: Jun 21, 2024@18:11 Collection sample: BLOOD [...] Performed By: [facility] [CLIA# [id number]] [place] [address] [facility] Jun 08, 2024 11:00 AM LR MICROBIOLOGY RE PORT: Reporting Lab: [facility] [CLIA# [id number]] [place] [address] Accession [UID]: [id number] [[id number]] Received: Jun 08, 2024@11:00 Collection sample: URINE Collection date: Jun 08, 2024 11:00 Provider: MARYBETH POWELL Comment on specimen: urine Test(s) ordered: CULTURE & SUSCEPTIBILITY...... completed: Jun 09, 2024 * BACTERIOLOGY FINAL REPORT => Jun 09, 2024 19:12 TECH CODE: [id number] CULTURE RESULTS: ESCHERICHIA COLI - Quantity: >100,000 [...] Performed By: [facility] [CLIA# [id number]] [address] [place] [address] [facility] Encounter Notes: All associated encounter notes This section contains the clinical notes associated to the Encounter. Date/Time Encounter Note(s) Provider Source Jul 03, 2024 10:23 AM ANESTHESIOLOGY PRO CEDURE NOTE: LOCAL TITLE: ANESTHESIA PROCEDURE NOTE STANDARD TITLE: ANESTHESIOLOGY PROCEDURE NOTE DATE OF NOTE: JUL 03, 2024@10:23 ENTRY DATE: JUL 03, 2024@10:23:54 AUTHOR: DADA CARBONE COSIGNER: URGENCY: STATUS: COMPLETED ANESTHESIA REGIONAL/NEURAXIAL BLOCK PLACEMENT --------PRE-PROCEDURE TIMEOUT--------- Informed consent was obtained and placed in the patients electronic medical record. If another practitioner was substituted to participate or perform the procedure for any of those named in the informed consent, the patient was informed of the change and the patients verbal consent was obtained. ~~~~~~~~~~~~~~~~~~~~~~~~~~~~~~ ~~~~~~~~~~~~~~~~~~~~~~PRE-PROC EDURE ANESTHESIOLOGIST INITIATED TIMEOUT~~~~ Confirmation of patient identity with patient stating: Full name Date of Procedure(s) to be performed Laterality Confirmation by participants of correct patient (arm band), procedure and laterality. Visual confirmation by participants that the surgical site is marked. Visual confirmation by participants that the regional block site is marked. Validity of surgical informed consent checked by participants. Validity of regional block informed consent checked by participants. Verbal agreement by participants of patients correct position. Confirmation of emergency airway equipment and emergency medications including intralipid rescue. Allergies Time out participants: Anesthesiologist: Patrick Pineda) Certified Registered Nurse Emergency Veterinary Technician: Santosh (N) Non-Anesthesia provider for time out: Regenold, Circulating RN Time block placed: 0850 Standard monitors applied (BP, ECG, SPO2), and patent IV access verified. ~~~~~~~~~~~~~~~~~~~~~~~~~~~~~~ ~~~~~~~~~~~~~~~~~~~~~~~PREMEDI CATIONS GIVEN~~~~ Other: [place] ~~~~~~~~~~~~~~~~~~~~~~~~~~~~~~ ~~~~~~~~~~~~~~~~~~~~~~~~~~~SIT E PREPARATION~~~~ Asepsis Chlorhexidine Sterile gloves Hand washing Hat Mask Technique Single injection Needle 4 inch 21G ~~~~~~~~~~~~~~~~~~~~~~~~~~~~~~ ~~~~~~~~~~~~~~~~~~~~~~~~PLACEM ENT TECHNIQUE~~~~ [place] Ultrasound guided Local anesthetic spread visualized around nerves or fascial plane Sterile probe cover used Relevant structures identified US images saved?: No ~~~~~~~~~~~~~~~~~~~~~~~~~~~~~~ ~~~~~~~~~~~~~~~~~~~~~~~~~~~~BL OCK PERFORMED~~~~ Laterality Bilateral Block(s) performed: Transversus abdominis plane ~~~~~~~~~~~~~~~~~~~~~~~~~~~~~~ ~~~~~~~~~~~~~~~~~~~ANESTHETIC AND ADDITIVES~~~~ Bupivacaine .25% - 60 ml Additive (s) Dexamethasone 4 mg ~~~~~~~~~~~~~~~~~~~~~~~~~~~~~~ ~~~~~~~~~~~~~~~BLOCK EFFICACY AND PLACEMENT~~~~ Negative pain on injection Injection resistance minimal (<15 psi/by feel) Negative aspiration prior to injection Success Uneventful placement, vital signs monitored throughout placement Block successfully placed, full evaluation pending /alexi/ DADA CARBONE MD ANESTHESIOLOGIST Signed: 07/03/2024 11:[address] [facility]
--- NOTE | 2024-07-16 07:40 | CRLHL7_ITS ---
For Patients: As a result of the Century Cures Act, medical imaging exams and procedure reports are released immediately into your electronic medical record. You may view this report before your referring provider. If you have questions, please contact your health care provider. INDICATION: Nausea. Leukocytosis. Recent abdominal surgery. COMPARISON: July 13, 2024. TECHNIQUE: CT examination of the abdomen and pelvis was performed without intravenous contrast. Thin section axial images were obtained from the lung bases through the pubic symphysis. Oral contrast was not administered. Please note that all CT scans at this facility use dose modulation, iterative reconstruction, and/or weight-based dosing when appropriate to reduce radiation dose to as low as reasonably achievable. FINDINGS: LUNG BASES: Minimal basilar atelectasis. Heart size unchanged. Hiatal hernia with evidence of reflux. Atherosclerotic vascular calcifications associated with the heart. LIVER/BILIARY SYSTEM:Hepatic cyst. Liver otherwise unremarkable. No biliary ductal dilation. The gallbladder appears normal. ADRENALS: No significant findings. Benign low-density nodularity identified. This is usually due to lipid rich adenomas. KIDNEYS, URETERS and BLADDER:Renal cortical scarring, especially on the right. No hydronephrosis or hydroureter. Residual contrast within the bladder presumably from the July 13 examination. Prominent prostate. SPLEEN:Normal non-contrast appearance. PANCREAS: Normal non-contrast appearance. RETROPERITONEUM and MESENTERY: There is no mass, adenopathy or aortic aneurysm. Atherosclerotic vascular calcification GASTROINTESTINAL SYSTEM: There are postsurgical changes identified. There is an anastomotic site in the region of the rectosigmoid which appears to be intact. No regional collection. No significant upstream dilation of bowel. There is a right lower quadrant stoma with parastomal hernia admitting fat and bowel. This does not appear to be obstructive or incarcerated. PELVIS: Mild inflammatory change but no evidence of collection.. OSSEOUS STRUCTURES and ABDOMINAL WALL: No destructive process of bone.There is the parastomal hernia as mentioned above. There is also an incisional hernia which is new since the prior study. Small bowel loops now protruding into the hernia right behind the incision and extends to just behind the staple line. There is also mild inflammatory change in the anterior abdominal wall which is generally improved since the prior study. OTHER: No free fluid or free air. IMPRESSION: 1. Postsurgical changes related to the bowel. This includes a rectosigmoid anastomosis and a right lower quadrant stoma. No specific abnormality identified in the region of the anastomosis. At the right lower quadrant stoma, there is a hernia admitting fat and bowel but no evidence of necrosis, obstruction or incarceration. This is similar to the prior study. 2. Residual inflammatory change in the pelvis but similar to the prior study without collection. No worsening inflammatory finding identified. 3. Postsurgical changes in the anterior abdominal wall which have generally improved, specifically the amount of fluid in the anterior abdominal wall. 4. There is an incisional hernia which is new since the prior study. This admits peritoneum and small bowel which extends to just behind the skin staple line. 5. Other nonacute appearing findings as discussed in the body of the report similar to the prior exam. Pacer via the comments Please note that all CT scans at this facility use dose modulation, iterative reconstruction, and/or weight-based dosing when appropriate to reduce radiation dose to as low as reasonably achievable. Dictated by Denys Agrawal MD @ 07/16/2024 8:15:19 AM (Electronically Signed)
--- OUTSIDE RECORDS SUMMARY | 2024-07-16 07:40 | XMS_ITS ---
[facility] Encounter Summary Created on: July 16, 2024 FLACA WEAVER : 1950 Sex: Male Author Name [facility] [place] [facility] [place] Address [address] [place] [address] Care Team Providers Care Appliance Service Technician Name Role Phone JATINDER CABRERA Primary [...] PART A Sep 29, 2016 PART A [id number] [phone] JUDY WEAVER PATIENT Selected Encounter This section includes the information on record at [place] for the Encounter. Date/Time Encounter Type Encounter Description Reason Pro vider Source Jul 03, 2024 05:59 AM Inpatient Visit [facility] Encounter Template Text not used by [...] 2024 08:15 AM AMBULATORY - NONE [facility] Active, Pending, and Scheduled Orders This [...] Order TYPE & SCREEN - LAB BLOOD [facility] Jul 03, 2024 12:00 AM Laboratory - Blood Bank Order TYPE & SCREEN - LAB BLOOD [facility] Jul 16, 2024 12:00 AM [...] Jul 09, 2024 12:23 PM Reporting Lab: [facility] [address] Performing Lab: [facility] [address] PHOSPHORUS 3.0 mg/dL 2.3-4.3 Jul 10, 2024 07:16 AM [facility] BASIC METABOLIC PANEL+MG Specimen Type: PLASMA No comment entered. Ordering Provider: JUANCARLOS ECHOLS S Report Released Date/Time: Jul 09, 2024 12:23 PM Reporting Lab: [facility] [address] Performing Lab: [facility] [address] CREATININE 0.7 mg/dL 0.7-1.2 UREA NITROGEN 27 [...] Jul 09, 2024 12:23 PM Reporting Lab: [facility] [address] Performing Lab: [facility] [address] WBC 18.8 H 4.0-11.0 RBC 5.08 4.60-6.20 [...] Jul 08, 2024 06:18 PM Reporting Lab: [facility] [address] Performing Lab: [facility] [address] WBC 15.3 H 4.0-11.0 RBC 4.91 4.60-6.20 [...] Jul 08, 2024 08:41 AM Reporting Lab: [facility] [address] Performing Lab: [facility] [address] URINE COLOR YELLOW SPECIFIC GRAVITY >1.050 H [...] Jul 07, 2024 04:49 PM Reporting Lab: [facility] [address] Performing Lab: [facility] [address] WBC 17.5 H 4.0-11.0 RBC 4.88 4.60-6.20 [...] Jul 07, 2024 04:49 PM Reporting Lab: [facility] [address] Performing Lab: [facility] [address] PHOSPHORUS 2.6 mg/dL 2.3-4.3 Jul 08, 2024 09:54 AM [facility] BASIC METABOLIC PANEL+MG Specimen Type: PLASMA Comment: Specimen received in Lab at: [id number] Ordering Provider: JUANCARLOS ECHOLS S Report Released Date/Time: Jul 07, 2024 04:49 PM Reporting Lab: [facility] [address] Performing Lab: [facility] [address] CREATININE 0.9 mg/dL 0.7-1.2 UREA NITROGEN 26 [...] Jul 07, 2024 12:26 PM Reporting Lab: [facility] [address] Performing Lab: [facility] [address] C DIFF TOX B GENE PCR NEGATIVE Negative Jul 07, 2024 07:41 AM [facility] PHOSPHORUS Specimen Type: PLASMA No comment entered. Ordering Provider: JEVON ZAZUETA Report Released Date/Time: Jul 06, 2024 03:44 PM Reporting Lab: [facility] [address] Performing Lab: [facility] [address] PHOSPHORUS 3.1 mg/dL 2.3-4.3 Jul 07, 2024 07:41 AM [facility] BASIC METABOLIC PANEL+MG Specimen Type: PLASMA No comment entered. Ordering Provider: JEVON ZAZUETA Report Released Date/Time: Jul 06, 2024 03:44 PM Reporting Lab: [facility] [address] Performing Lab: [facility] [address] CREATININE 0.9 mg/dL 0.7-1.2 UREA NITROGEN 20 [...] Jul 06, 2024 03:44 PM Reporting Lab: [facility] [address] Performing Lab: [facility] [address] WBC 21.2 H 4.0-11.0 RBC 5.09 4.60-6.20 [...] Jul 05, 2024 01:22 PM Reporting Lab: [facility] [address] Performing Lab: [facility] [address] WBC 18.0 H 4.0-11.0 RBC 4.83 4.60-6.20 [...] Jul 05, 2024 01:22 PM Reporting Lab: [facility] [address] Performing Lab: [facility] [address] PHOSPHORUS 3.6 mg/dL 2.3-4.3 Jul 06, 2024 07:21 AM [facility] BASIC METABOLIC PANEL+MG Specimen Type: PLASMA No comment entered. Ordering Provider: JEVON ZAZUETA Report Released Date/Time: Jul 05, 2024 01:22 PM Reporting Lab: [facility] [address] Performing Lab: [facility] [address] CREATININE 0.7 mg/dL 0.7-1.2 UREA NITROGEN 12 [...] Jul 04, 2024 09:39 AM Reporting Lab: [facility] [address] Performing Lab: [facility] [address] MAGNESIUM 2.0 mg/dL 1.6-2.6 Jul 05, 2024 07:17 AM [facility] PHOSPHORUS Specimen Type: PLASMA No comment entered. Ordering Provider: JUANCARLOS ECHOLS S Report Released Date/Time: Jul 04, 2024 09:39 AM Reporting Lab: [facility] [address] Performing Lab: [facility] [address] PHOSPHORUS 2.0 mg/dL L 2.3-4.3 Jul 05, 2024 07:17 AM [facility] BASIC METABOLIC PANEL+MG Specimen Type: PLASMA No comment entered. Ordering Provider: JUANCARLOS ECHOLS S Report Released Date/Time: Jul 04, 2024 09:39 AM Reporting Lab: [facility] [address] Performing Lab: [facility] [address] CREATININE 0.7 mg/dL 0.7-1.2 UREA NITROGEN 12 [...] Jul 04, 2024 09:39 AM Reporting Lab: [facility] [address] Performing Lab: [facility] [address] WBC 18.3 H 4.0-11.0 RBC 4.49 L [...] Jul 03, 2024 06:31 PM Reporting Lab: [facility] [address] Performing Lab: [facility] [address] CREATININE 0.7 mg/dL 0.7-1.2 UREA NITROGEN 16 [...] Jul 03, 2024 06:31 PM Reporting Lab: [facility] [address] Performing Lab: [facility] [address] PHOSPHORUS 2.8 mg/dL 2.3-4.3 Jul 04, 2024 07:16 AM [facility] CBC Specimen Type: BLOOD No comment entered. Ordering Provider: GABINO CAMERON Report Released Date/Time: Jul 03, 2024 06:31 PM Reporting Lab: [facility] [address] Performing Lab: [facility] [address] WBC 20.6 H 4.0-11.0 RBC 4.63 4.60-6.20 [...] Jul 03, 2024 06:31 PM Reporting Lab: [facility] [address] Performing Lab: [facility] [address] WBC 20.6 H 4.0-11.0 RBC 4.63 4.60-6.20 [...] Jul 03, 2024 06:31 PM Reporting Lab: [facility] [address] Performing Lab: [facility] [address] BNP 292 pg/mL H <99 Jul 03, 2024 10:32 PM [facility] FINGERSTICK GLUCOSE Specimen Type: BLOOD Comment: Save Result Nurse Notified Ordering Provider: KATELYNN PERSON Report Released Date/Time: Jul 03, 2024 10:50 PM Reporting Lab: [facility] [address] Performing Lab: [facility] [address] FINGERSTICK GLUCOSE 126 mg/dL H 70-100 Jul 03, 2024 05:33 PM [facility] FINGERSTICK GLUCOSE Specimen Type: BLOOD Comment: Save Result Nurse Notified Ordering Provider: KATELYNN PERSON Report Released Date/Time: Jul 03, 2024 05:46 PM Reporting Lab: [facility] [address] Performing Lab: [facility] [address] FINGERSTICK GLUCOSE 141 mg/dL H 70-100 Jul 03, 2024 02:31 PM [facility] POC ABG/ELECTROLYTES Specimen Type: ARTERIAL BLOOD Comment: FIO2 = 97% Patient Temp: 36.0 C Sample Type = ARTERIAL Ordering Provider: MAZIN ARREDONDO Report Released Date/Time: Jul 03, 2024 01:48 PM Reporting Lab: [facility] [address] Performing Lab: [facility] [address] POC PH 7.387 7.35-7.45 POC PCO2 34.4 [...] Jul 03, 2024 01:48 PM Reporting Lab: [facility] [address] Performing Lab: [facility] [address] POC PH 7.280 L 7.35-7.45 POC PCO2 [...] Jun 12, 2024 04:01 PM Reporting Lab: [facility] [address] Performing Lab: [facility] [address] URINE COLOR YELLOW SPECIFIC GRAVITY 1.031 1.003-1.03 [...] Jun 12, 2024 03:59 PM Reporting Lab: [facility] [address] Performing Lab: [facility] [address] WBC 15.8 H 4.0-11.0 RBC 5.11 4.60-6.20 [...] Jun 23, 2024 06:07 PM Reporting Lab: [facility] [address] Performing Lab: [facility] [address] CREATININE 0.8 mg/dL 0.7-1.2 UREA NITROGEN 13 [...] Jun 23, 2024 06:07 PM Reporting Lab: [facility] [address] Performing Lab: [facility] [address] WBC 15.5 H 4.0-11.0 RBC 4.93 4.60-6.20 [...] Jun 22, 2024 05:51 PM Reporting Lab: [facility] [address] Performing Lab: [facility] [address] CREATININE 0.7 mg/dL 0.7-1.2 UREA NITROGEN 16 [...] Jun 22, 2024 05:51 PM Reporting Lab: [facility] [address] Performing Lab: [facility] [address] WBC 14.9 H 4.0-11.0 RBC 5.09 4.60-6.20 [...] Jun 22, 2024 05:51 PM Reporting Lab: [facility] [address] Performing Lab: [facility] [address] WBC 16.9 H 4.0-11.0 RBC 5.28 4.60-6.20 [...] Jun 22, 2024 05:51 PM Reporting Lab: [facility] [address] Performing Lab: [facility] [address] CREATININE 0.7 mg/dL 0.7-1.2 UREA NITROGEN 17 [...] Jun 21, 2024 05:45 PM Reporting Lab: [facility] [address] Performing Lab: [facility] [address] URINE COLOR YELLOW SPECIFIC GRAVITY 1.041 H [...] Jun 21, 2024 06:07 PM Reporting Lab: [facility] [address] Performing Lab: [facility] [address] POC CREATININE 1.1 mg/dL 0.6-1.3 Jun 21, 2024 05:30 PM [facility] POC ABG/LACTATE Specimen Type: VENOUS BLOOD No comment entered. Ordering Provider: DELIA MARTINEZ Report Released Date/Time: Jun 21, 2024 06:07 PM Reporting Lab: [facility] [address] Performing Lab: [facility] [address] POC PH 7.470 H 7.31-7.41 POC PCO2 [...] Jun 21, 2024 05:30 PM Reporting Lab: [facility] [address] Performing Lab: [facility] [address] .INR 1.2 H 0.8-1.1 .PT 13.9 s H 9.4-12.5 Jun 21, 2024 05:24 PM [facility] LIPASE Specimen Type: PLASMA No comment entered. Ordering Provider: DELIA MARTINEZ Report Released Date/Time: Jun 21, 2024 05:30 PM Reporting Lab: [facility] [address] Performing Lab: [facility] [address] LIPASE 32 U/L <60 Jun 21, 2024 05:24 PM [facility] EXTRA GOLD GEL TUBE Specimen Type: SERUM No comment entered. Ordering Provider: DELIA MARTINEZ Report Released Date/Time: Jun 21, 2024 05:41 PM Reporting Lab: [facility] [address] Performing Lab: [facility] [address] EXTRA GOLD GEL TUBE RECEIVED Jun 21, 2024 05:24 PM [facility] COMPREHENSIVE METABOLIC PANEL+MG Specimen Type: PLASMA No comment entered. Ordering Provider: DELIA MARTINEZ Report Released Date/Time: Jun 21, 2024 05:30 PM Reporting Lab: [facility] [address] Performing Lab: [facility] [address] CREATININE 0.9 mg/dL 0.7-1.2 UREA NITROGEN 29 [...] Jun 21, 2024 05:30 PM Reporting Lab: [facility] [address] Performing Lab: [facility] [address] WBC 21.3 H 4.0-11.0 RBC 5.48 4.60-6.20 [...] May 28, 2024 09:02 AM Reporting Lab: [facility] [address] Performing Lab: [facility] [address] .INR 1.0 0.8-1.1 .PT 11.8 s 9.4-12.5 [...] May 28, 2024 09:02 AM Reporting Lab: [facility] [address] Performing Lab: [facility] [address] HEMOGLOBIN A1C 4.9 4.0-6.0 Jun 08, 2024 10:59 AM [facility] CBC Specimen Type: BLOOD No comment entered. Ordering Provider: MARYBETH POWELL Report Released Date/Time: May 28, 2024 09:02 AM Reporting Lab: [facility] [address] Performing Lab: [facility] [address] WBC 16.1 H 4.0-11.0 RBC 5.02 4.60-6.20 [...] May 28, 2024 09:02 AM Reporting Lab: [facility] [address] Performing Lab: [facility] [address] CREATININE 0.9 mg/dL 0.7-1.2 UREA NITROGEN 15 [...] Source Jul 03, 2024 11:26 PM 3 [facility] Jul 03, 2024 10:33 PM 5 [facility] Jul 03, 2024 08:26 PM 3 [facility] Jul 03, 2024 07:58 PM 5 [facility] Jul 03, 2024 07:25 PM 3 [facility] Social History: Smoking Status (Most current) [...] Source Mar 23, 2016 CLINICAL [facility] Radiology Reports: +/- 30 [...] 2024 10:09 AM CHEST 2 VIEWS PA Ramsey STONE LAT: FLACA WEAVER [id number] -1950 M Exm Date: JUL 08, 2024@10:09 Req Phys: KATELYNN PERSON Loc: [facility]/07-08-2024@11:49 Img Loc: MAIN X-RAY Service: [place] [address] (Case 24 COMPLETE) CHEST 2 VIEWS PA AND LAT (RAD Detailed) CPT:01295 Reason for Study: Uptrending WBC, POD 5 [...] 08, 2024 Date Verified: JUL 08, 2024 Glass Etcher Helper E-Sig: Report: CHEST 2 VIEWS PA [...] cardiopulmonary disease. READING PHYSICIAN: Sarbjit Vaughn M.D. -[phone] 07/08/2024 12:[address] [facility] National Teleradiology Program [phone] (For Medical Practitioner Use Only) Attention Patients / Veterans: If you have questions or concerns about these test results, please contact your ordering provider or primary care team. Primary Interpreting Staff: RADIOLOGY,OUTSIDE SERVICE, Staff Physician / RADIOLOGY,OUTSIDE SERVICE [facility] Jul 08, 2024 10:[address] (AP) ABDOMEN/PE LVIS W CONTRAST: FLACA WEAVER [id number] -1950 M Exm Date: JUL 08, 2024@10:00 Req Phys: KATELYNN PERSON Pat Loc: 2KG/07-08-2024@12:07 Img Loc: CT IMAGING [place] [address] (Case 22 COMPLETE) CT (AP) ABDOMEN/PELVIS W CONTRAST(CT Detailed) CPT:39753 Contrast Media : Non-ionic Iodinated Reason for [...] PLASMA .CREAT EGFR(CKD-E >90 Ref: >=60 Allergies: ([place] only) TERAZOSIN (Mar 13, 2015) Report Status: Verified Date Reported: JUL 08, 2024 Date Verified: JUL 08, 2024 Glass Etcher Helper E-Sig: Report: CT (AP) ABDOMEN/PELVIS W [...] as noted above READING PHYSICIAN: Celestino Blanc -[phone] 07/08/2024 13:[address] [facility] [phone] (For Medical Practitioner Use Only) Attention Patients / Veterans: If you have questions or concerns about these test results, please contact your ordering provider or primary care team. Primary Interpreting Staff: RADIOLOGY,OUTSIDE SERVICE, Staff Physician / RADIOLOGY,OUTSIDE SERVICE [facility] Jun 22, 2024 11:49 AM ABSCESS DRAIN PLAC EMENT PERITONEAL (P): FLACA WEAVER [id number] -1950 M Exm Date: JUN 22, 2024@11:49 Req Phys: ANGELA HOLDEN Loc: [facility]06-22-2024@17:14 Img Loc: INTERVENTIONAL RADIOLOGY Service: [place] [address] (Case [id number] COMPLETE) IR PERITONEAL/RETROPERITONEAL PER(ANI Detailed) CPT:01711 Reason for Study: diverticulitis with abscess (Case 3570 COMPLETE) IR MOD SEDATION 10-22 MIN (ANI Detailed) CPT:77050 Clinical History: IS NOT under investigation for COVID-19 or is COVID-19 negative 73 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 please place abscess drain. Contact number for responsible provider who can be reached for any questions or notifications of critical findings: [phone] n/a LAST CREATININE 0.9 (06/21/24) Report Status: Verified Date Reported: JUN 22, 2024 Date Verified: JUN 22, 2024 Glass Etcher Helper E-Sig:/ES/LISA PENDLETON MD Report: PROCEDURES: Placement [...] obtained. A pre-procedural Time-Out was performed per [facility] policy. The patient was placed in the supine position on the CT table. Preprocedural scan performed. The suprapubic region/lower abdominal wall was sterilely prepped and draped in the usual fashion.1% lidocaine without epinephrine was used for local anesthesia. Using real-time CT fluoroscopy, a 5 Tajik [employer] Pharm[employer] catheter was advanced into the collection in the left pelvis. A wire was coiled in the collection. The tract into the collection was dilated to accommodate the 12 Tajik locking pigtail drainage catheter. There was return [...] Interpreting Staff: LISA PENDLETON MD, RADIOLOGIST (Glass Etcher Helper) /JRT LISA PENDLETON [facility] Jun 22, 2024 11:[address] NEEDLE PLACEMEN T (P): MEGFLACA YAMIL [id number] -1950 M Exm Date: JUN 22, 2024@11:48 Req Phys: ANGELA HOLDEN Loc: [facility]/06-22-2024@17:14 Img Loc: CT IMAGING Service: [place] [address] (Case [id number] COMPLETE) CT SCAN FOR NEEDLE PLACEMENT (CT Detailed) CPT:04331 Reason for Study: l pelvic abscess drain Clinical History: Report Status: Verified Date Reported: JUN 22, 2024 Date Verified: JUN 22, 2024 Glass Etcher Helper E-Sig:/ES/LISA PENDLETON MD Report: PROCEDURES: Placement [...] obtained. A pre-procedural Time-Out was performed per [facility] policy. The patient was placed in the supine position on the CT table. Preprocedural scan performed. The suprapubic region/lower abdominal wall was sterilely prepped and draped in the usual fashion.1% lidocaine without epinephrine was used for local anesthesia. Using real-time CT fluoroscopy, a 5 Tajik [employer] catheter was advanced into the collection in the left pelvis. A wire was coiled in the collection. The tract into the collection was dilated to accommodate the 12 Tajik locking pigtail drainage catheter. There was return [...] Interpreting Staff: LISA PENDLETON MD, RADIOLOGIST (Glass Etcher Helper) /JRLISA [facility] Jun 21, 2024 06:[address] (AP) ABDOMEN/PE LVIS (P): FLACA WEAVER [id number] -1950 M Exm Date: JUN 21, 2024@18:09 Req Phys: DELIA MARTINEZ Loc: [facility] EMERGENCY DEPT WALK-IN (Re Img Loc: CT IMAGING Service: [place] [address] (Case [id number] COMPLETE) CT (AP) ABDOMEN/PELVIS W CONTRAST(CT Detailed) CPT:21192 Contrast Media : Non-ionic Iodinated Reason for [...] PLASMA .CREAT EGFR(CKD-E >90 Ref: >=60 Allergies: ([place] only) TERAZOSIN (Mar 13, 2015) Defer to [...] 21, 2024 Date Verified: JUN 21, 2024 Glass Etcher Helper E-Sig:/ES/CARLOS A CUNNINGHAM DO Report: EXAMINATION: CT [...] Interpreting Staff: CARLOS A CUNNINGHAM DO, RADIOLOGIST (Glass Etcher Helper) /CARLOS A ROWELL [facility] Pathology Reports: [...] COMPLETED $APHDR Reporting Lab: [facility] [CLIA# [id number]] [place] [address] - - - - - - - [...] - PATHOLOGY REPORT Accession No. [id number] - - - - - - - [...] - PATHOLOGY REPORT Accession No. [id number] - - - - - - - [...] Second circumferential surgical margin, en face; E-F: Map Editor diverticula; G: Map Editor section of mesentery; H: Random auto service representative section of additional adipose tissue [...] Pathology Report Performed By: [facility] [CLIA# [id number]] [place] [address] $FTR - - - - - - [...] - - FLACA WEAVER STANDARD FORM 515 ID:[id number] SEX:M :1950 AGE: 73 LOC:93280 ADM:Jun DX:DIVERTICULITIS PCP: Jatinder Cabrera /alexi/ EDUARDO PALOMARES MD STAFF PATHOLOGIST Signed: 07/06/2024 10:40 EDUARDO PALOMARES [facility] Jun 22, 2024 01:15 PM LR MICROBIOLOGY RE PORT: Reporting Lab: [facility] [CLIA# [id number]] [place] [address] Accession [UID]: [id number] [[id number]] Received: Jun 22, 2024@13:38 Collection sample: FLUID Collection date: Jun 22, 2024 13:15 Provider: ANGELA HOLDEN Comment on specimen: LLQ ABSCESS, RECEIVED IN ANAEROBIC TRANSPORT VIAL Test(s) ordered: GRAM STAIN.................... completed: Jun 22, 2024 15:03 CULTURE & SUSCEPTIBILITY...... completed: Jun 25, 2024 * BACTERIOLOGY FINAL REPORT => Jun 25, 2024 10:56 TECH CODE: [id number] GRAM STAIN: DIRECT SMEAR of specimen before [...] Bacteriology Report Performed By: [facility] [CLIA# [id number]] [place] [address] [facility] Jun 22, 2024 01:15 PM LR MICROBIOLOGY RE PORT: Reporting Lab: [facility] [CLIA# [id number]] [place] [address] Accession [UID]: [id number] [[id number]] Received: Jun 22, 2024@13:38 Collection sample: FLUID Collection date: Jun 22, 2024 13:15 Provider: ANGELA HOLDEN Comment on specimen: LLQ ABSCESS, RECEIVED IN ANAEROBIC TRANSPORT VIAL Test(s) ordered: ANAEROBIC CULTURE............. completed: Jun 28, 2024 * BACTERIOLOGY FINAL REPORT => Jun 28, 2024 10:08 TECH CODE: [id number] CULTURE RESULTS: HEAVY GROWTH MIXED ANAEROBES Comment: [...] Bacteriology Report Performed By: [facility] [CLIA# [id number]] [place] [address] [facility] Jun 21, 2024 06:12 PM LR MICROBIOLOGY RE PORT: Reporting Lab: [facility] [CLIA# [id number]] [place] [address] Accession [UID]: [id number] [[id number]] Received: Jun 21, 2024@18:12 Collection sample: BLOOD [...] Bacteriology Report Performed By: [facility] [CLIA# [id number]] [place] [address] [facility] Jun 21, 2024 06:11 PM LR MICROBIOLOGY RE PORT: Reporting Lab: [facility] [CLIA# [id number]] [place] [address] Accession [UID]: [id number] [[id number]] Received: Jun 21, 2024@18:11 Collection sample: BLOOD [...] Bacteriology Report Performed By: [facility] [CLIA# [id number]] [place] [address] [facility] Jun 08, 2024 11:00 AM LR MICROBIOLOGY RE PORT: Reporting Lab: [facility] [CLIA# [id number]] [place] [address] Accession [UID]: [id number] [[id number]] Received: Jun 08, 2024@11:00 Collection sample: URINE Collection date: Jun 08, 2024 11:00 Provider: MARYBETH POWELL Comment on specimen: urine Test(s) ordered: CULTURE & SUSCEPTIBILITY...... completed: Jun 09, 2024 * BACTERIOLOGY FINAL REPORT => Jun 09, 2024 19:12 TECH CODE: [id number] CULTURE RESULTS: ESCHERICHIA COLI - Quantity: >100,000 [...] Bacteriology Report Performed By: [facility] [CLIA# [id number]] [place] [address] [facility]
--- OUTSIDE RECORDS SUMMARY | 2024-07-16 07:40 | XMS_ITS ---
[facility] Encounter Summary Created on: July 16, 2024 FLACA WEAVER : 1950 Sex: Male Author Name [facility] [place] [facility] [place] [facility] [place] Address [address] [place] [address] Care Team Providers Care Classifier Tender Name Role Phone JATINDER CABRERA Primary [...] PART A Sep 29, 2016 PART A [id number] [phone] JUDY WEAVER PATIENT Selected Encounter This section [...] 2024 08:15 AM AMBULATORY - NONE [facility] Active, Pending, and Scheduled Orders This [...] Reporting Lab: [facility] [address] Performing Lab: [facility] [address] PHOSPHORUS 3.0 mg/dL 2.3-4.3 Jul 10, 2024 07:16 AM [facility] BASIC METABOLIC PANEL+MG Specimen Type: PLASMA No comment entered. Ordering Provider: JUANCARLOS ECHOLS S Report Released Date/Time: Jul 09, 2024 12:23 PM Reporting Lab: [facility] [address] Performing Lab: [facility] [address] CREATININE 0.7 mg/dL 0.7-1.2 UREA NITROGEN 27 [...] Reporting Lab: [facility] [address] Performing Lab: [facility] [address] WBC 18.8 H 4.0-11.0 RBC 5.08 4.60-6.20 [...] Reporting Lab: [facility] [address] Performing Lab: [facility] [address] WBC 15.3 H 4.0-11.0 RBC 4.91 4.60-6.20 [...] Reporting Lab: [facility] [address] Performing Lab: [facility] [address] URINE COLOR YELLOW SPECIFIC GRAVITY >1.050 H [...] Reporting Lab: [facility] [address] Performing Lab: [facility] [address] WBC 17.5 H 4.0-11.0 RBC 4.88 4.60-6.20 [...] Reporting Lab: [facility] [address] Performing Lab: [facility] [address] PHOSPHORUS 2.6 mg/dL 2.3-4.3 Jul 08, 2024 09:54 AM [facility] BASIC METABOLIC PANEL+MG Specimen Type: PLASMA Comment: Specimen received in Lab at: 0952 Ordering Provider: JUANCARLOS ECHOLS S Report Released Date/Time: Jul 07, 2024 04:49 PM Reporting Lab: [facility] [address] Performing Lab: [facility] [address] CREATININE 0.9 mg/dL 0.7-1.2 UREA NITROGEN 26 [...] Reporting Lab: [facility] [address] Performing Lab: [facility] [address] C DIFF TOX B GENE PCR NEGATIVE Negative Jul 07, 2024 07:41 AM [facility] PHOSPHORUS Specimen Type: PLASMA No comment entered. Ordering Provider: JEVON ZAZUETA Report Released Date/Time: Jul 06, 2024 03:44 PM Reporting Lab: [facility] [address] Performing Lab: [facility] [address] PHOSPHORUS 3.1 mg/dL 2.3-4.3 Jul 07, 2024 07:41 AM [facility] BASIC METABOLIC PANEL+MG Specimen Type: PLASMA No comment entered. Ordering Provider: JEVON ZAZUETA Report Released Date/Time: Jul 06, 2024 03:44 PM Reporting Lab: [facility] [address] Performing Lab: [facility] [address] CREATININE 0.9 mg/dL 0.7-1.2 UREA NITROGEN 20 [...] Reporting Lab: [facility] [address] Performing Lab: [facility] [address] WBC 21.2 H 4.0-11.0 RBC 5.09 4.60-6.20 [...] Reporting Lab: [facility] [address] Performing Lab: [facility] [address] WBC 18.0 H 4.0-11.0 RBC 4.83 4.60-6.20 [...] Reporting Lab: [facility] [address] Performing Lab: [facility] [address] PHOSPHORUS 3.6 mg/dL 2.3-4.3 Jul 06, 2024 07:21 AM [facility] BASIC METABOLIC PANEL+MG Specimen Type: PLASMA No comment entered. Ordering Provider: JEVON ZAZUETA Report Released Date/Time: Jul 05, 2024 01:22 PM Reporting Lab: [facility] [address] Performing Lab: [facility] [address] CREATININE 0.7 mg/dL 0.7-1.2 UREA NITROGEN 12 [...] Reporting Lab: [facility] [address] Performing Lab: [facility] [address] MAGNESIUM 2.0 mg/dL 1.6-2.6 Jul 05, 2024 07:17 AM [facility] PHOSPHORUS Specimen Type: PLASMA No comment entered. Ordering Provider: JUANCARLOS ECHOLS S Report Released Date/Time: Jul 04, 2024 09:39 AM Reporting Lab: [facility] [address] Performing Lab: [facility] [address] PHOSPHORUS 2.0 mg/dL L 2.3-4.3 Jul 05, 2024 07:17 AM [facility] BASIC METABOLIC PANEL+MG Specimen Type: PLASMA No comment entered. Ordering Provider: JUANCARLOS ECHOLS S Report Released Date/Time: Jul 04, 2024 09:39 AM Reporting Lab: [facility] [address] Performing Lab: [facility] [address] CREATININE 0.7 mg/dL 0.7-1.2 UREA NITROGEN 12 [...] Reporting Lab: [facility] [address] Performing Lab: [facility] [address] WBC 18.3 H 4.0-11.0 RBC 4.49 L [...] Reporting Lab: [facility] [address] Performing Lab: [facility] [address] CREATININE 0.7 mg/dL 0.7-1.2 UREA NITROGEN 16 [...] Reporting Lab: [facility] [address] Performing Lab: [facility] [address] PHOSPHORUS 2.8 mg/dL 2.3-4.3 Jul 04, 2024 07:16 AM [facility] CBC Specimen Type: BLOOD No comment entered. Ordering Provider: GABINO CAMERON Report Released Date/Time: Jul 03, 2024 06:31 PM Reporting Lab: [facility] [address] Performing Lab: [facility] [address] WBC 20.6 H 4.0-11.0 RBC 4.63 4.60-6.20 [...] Reporting Lab: [facility] [address] Performing Lab: [facility] [address] WBC 20.6 H 4.0-11.0 RBC 4.63 4.60-6.20 [...] Reporting Lab: [facility] [address] Performing Lab: [facility] [address] BNP 292 pg/mL H <99 Jul 03, 2024 10:32 PM [facility] FINGERSTICK GLUCOSE Specimen Type: BLOOD Comment: Save Result Nurse Notified Ordering Provider: KATELYNN PERSON Report Released Date/Time: Jul 03, 2024 10:50 PM Reporting Lab: [facility] [address] Performing Lab: [facility] [address] FINGERSTICK GLUCOSE 126 mg/dL H 70-100 Jul 03, 2024 05:33 PM [facility] FINGERSTICK GLUCOSE Specimen Type: BLOOD Comment: Save Result Nurse Notified Ordering Provider: KATELYNN PERSON Report Released Date/Time: Jul 03, 2024 05:46 PM Reporting Lab: [facility] [address] Performing Lab: [facility] [address] FINGERSTICK GLUCOSE 141 mg/dL H 70-100 Jul 03, 2024 02:31 PM [facility] POC ABG/ELECTROLYTES Specimen Type: ARTERIAL BLOOD Comment: FIO2 = 97% Patient Temp: 36.0 C Sample Type = ARTERIAL Ordering Provider: MAZIN ARREDONDO Report Released Date/Time: Jul 03, 2024 01:48 PM Reporting Lab: [facility] [address] Performing Lab: [facility] [address] POC PH 7.387 7.35-7.45 POC PCO2 34.4 [...] Reporting Lab: [facility] [address] Performing Lab: [facility] [address] POC PH 7.280 L 7.35-7.45 POC PCO2 [...] Reporting Lab: [facility] [address] Performing Lab: [facility] [address] URINE COLOR YELLOW SPECIFIC GRAVITY 1.031 1.003-1.03 [...] Reporting Lab: [facility] [address] Performing Lab: [facility] [address] WBC 15.8 H 4.0-11.0 RBC 5.11 4.60-6.20 [...] Reporting Lab: [facility] [address] Performing Lab: [facility] [address] CREATININE 0.8 mg/dL 0.7-1.2 UREA NITROGEN 13 [...] Reporting Lab: [facility] [address] Performing Lab: [facility] [address] WBC 15.5 H 4.0-11.0 RBC 4.93 4.60-6.20 [...] Reporting Lab: [facility] [address] Performing Lab: [facility] [address] CREATININE 0.7 mg/dL 0.7-1.2 UREA NITROGEN 16 [...] Reporting Lab: [facility] [address] Performing Lab: [facility] [address] WBC 14.9 H 4.0-11.0 RBC 5.09 4.60-6.20 [...] Reporting Lab: [facility] [address] Performing Lab: [facility] [address] CREATININE 0.7 mg/dL 0.7-1.2 UREA NITROGEN 17 [...] >90 >60 Jun 22, 2024 06:10 PM [facility] CBC Specimen Type: BLOOD No comment entered. Ordering Provider: JEVON ZAZUETA Report Released Date/Time: Jun 22, 2024 05:51 PM Reporting Lab: [facility] [address] Performing Lab: [facility] [address] WBC 16.9 H 4.0-11.0 RBC 5.28 4.60-6.20 HGB 16.9 g/dL 13.5-17.9 HCT 50.4 41.0-54.0 MCV 95.5 fL 80.0-100.0 MCH 32.0 pg 27.0-33.0 MCHC 33.5 g/dL 32.0-37.5 PLT 223 150-400 MPV 10.9 fL 9.1-13.0 RDW 14.0 11.5-14.5 Jun 21, 2024 06:48 PM [facility] URINALYSIS Specimen Type: URINE No comment entered. Ordering Provider: DELIA MARTINEZ Report Released Date/Time: Jun 21, 2024 05:45 PM Reporting Lab: [facility] [address] Performing Lab: [facility] [address] URINE COLOR YELLOW SPECIFIC GRAVITY 1.041 H [...] Reporting Lab: [facility] [address] Performing Lab: [facility] [address] POC CREATININE 1.1 mg/dL 0.6-1.3 Jun 21, 2024 05:30 PM [facility] POC ABG/LACTATE Specimen Type: VENOUS BLOOD No comment entered. Ordering Provider: DELIA MARTINEZ Report Released Date/Time: Jun 21, 2024 06:07 PM Reporting Lab: [facility] [address] Performing Lab: [facility] [address] POC PH 7.470 H 7.31-7.41 POC PCO2 [...] Reporting Lab: [facility] [address] Performing Lab: [facility] [address] .INR 1.2 H 0.8-1.1 .PT 13.9 s H 9.4-12.5 Jun 21, 2024 05:24 PM [facility] LIPASE Specimen Type: PLASMA No comment entered. Ordering Provider: DELIA MARTINEZ Report Released Date/Time: Jun 21, 2024 05:30 PM Reporting Lab: [facility] [address] Performing Lab: [facility] [address] LIPASE 32 U/L <60 Jun 21, 2024 05:24 PM [facility] COMPREHENSIVE METABOLIC PANEL+MG Specimen Type: PLASMA No comment entered. Ordering Provider: DELIA MARTINEZ Report Released Date/Time: Jun 21, 2024 05:30 PM Reporting Lab: [facility] [address] Performing Lab: [facility] [address] CREATININE 0.9 mg/dL 0.7-1.2 UREA NITROGEN 29 [...] Reporting Lab: [facility] [address] Performing Lab: [facility] [address] EXTRA GOLD GEL TUBE RECEIVED Jun 21, 2024 05:24 PM [facility] CBC & DIFF Specimen Type: BLOOD Comment: Manual Differential Performed Ordering Provider: DELIA MARTINEZ Report Released Date/Time: Jun 21, 2024 05:30 PM Reporting Lab: [facility] [address] Performing Lab: [facility] [address] WBC 21.3 H 4.0-11.0 RBC 5.48 4.60-6.20 [...] Reporting Lab: [facility] [address] Performing Lab: [facility] [address] WBC 16.1 H 4.0-11.0 RBC 5.02 4.60-6.20 [...] Reporting Lab: [facility] [address] Performing Lab: [facility] [address] .INR 1.0 0.8-1.1 .PT 11.8 s 9.4-12.5 [...] Reporting Lab: [facility] [address] Performing Lab: [facility] [address] HEMOGLOBIN A1C 4.9 4.0-6.0 Jun 08, 2024 10:59 AM [facility] BASIC METABOLIC PANEL+MG Specimen Type: PLASMA No comment entered. Ordering Provider: MARYBETH POWELL Report Released Date/Time: May 28, 2024 09:02 AM Reporting Lab: [facility] [address] Performing Lab: [facility] [address] CREATININE 0.9 mg/dL 0.7-1.2 UREA NITROGEN 15 [...] Source Jul 03, 2024 11:26 PM 3 [facility] Jul 03, 2024 10:33 PM 5 [facility] Jul 03, 2024 08:26 PM 3 [facility] Jul 03, 2024 07:58 PM 5 [facility] Jul 03, 2024 07:25 PM 3 [facility] Social History: Smoking Status [...] Mar 23, 2016 [facility] Reports: +/- 30 days [...] VIEWS PA Ramsey STONE LAT: FLACA WEAVER [id number] -1950 M Exm Date: JUL 08, 2024@10:09 Req Phys: KATELYNN PERSON Loc: [facility]/07-08-2024@11:49 Img Loc: MAIN X-RAY Service: [place] [address] (Case 24 COMPLETE) CHEST 2 VIEWS PA AND LAT (RAD Detailed) CPT:53118 Reason for Study: Uptrending WBC, POD 5 [...] 08, 2024 Date Verified: JUL 08, 2024 Road Crossing Guard E-Sig: Report: CHEST 2 VIEWS PA AND [...] cardiopulmonary disease. READING PHYSICIAN: Sarbjit Vaughn M.D. -[phone] 07/08/2024 12:46 [facility] National Teleradiology Program [phone] (For Medical Practitioner Use Only) Attention Patients / Veterans: If you have questions or concerns about these test results, please contact your ordering provider or primary care team. Primary Interpreting Staff: RADIOLOGY,OUTSIDE SERVICE, Staff Physician / RADIOLOGY,OUTSIDE SERVICE [facility] Jul 08, 2024 10:[address] (AP) ABDOMEN/PE LVIS W CONTRAST: FLACA WEAVER [id number] -1950 M Exm Date: JUL 08, 2024@10:00 Req Phys: KATELYNN PERSON Pat Loc: 2KG/07-08-2024@12:07 Img Loc: CT IMAGING Service: [place] [address] (Case 22 COMPLETE) CT (AP) ABDOMEN/PELVIS W CONTRAST(CT Detailed) CPT:16059 Contrast Media : Non-ionic Iodinated Reason for [...] PLASMA .CREAT EGFR(CKD-E >90 Ref: >=60 Allergies: ([place] only) TERAZOSIN (Mar 13, 2015) Report Status: Verified Date Reported: JUL 08, 2024 Date Verified: JUL 08, 2024 Road Crossing Guard E-Sig: Report: CT (AP) ABDOMEN/PELVIS W CONTRAST [...] as noted above READING PHYSICIAN: Celestino Blanc -[phone] 07/08/2024 13:04 [facility] Qiroradiology Program [phone] (For Medical Practitioner Use Only) Attention Patients / Veterans: If you have questions or concerns about these test results, please contact your ordering provider or primary care team. Primary Interpreting Staff: RADIOLOGY,OUTSIDE SERVICE, Staff Physician / RADIOLOGY,OUTSIDE SERVICE [facility] Jun 22, 2024 11:49 AM ABSCESS DRAIN PLAC EMENT PERITONEAL (P): FLACA WEAVER [id number] -1950 M Exm Date: JUN 22, 2024@11:49 Req Phys: ANGELA HOLDEN Loc: [facility]06-22-2024@17:14 Img Loc: INTERVENTIONAL RADIOLOGY Service: [place] [address] (Case [id number] COMPLETE) IR PERITONEAL/RETROPERITONEAL PER(ANI Detailed) CPT:32601 Reason for Study: diverticulitis with abscess (Case 3570 COMPLETE) IR MOD SEDATION 10-22 MIN (ANI Detailed) CPT:16632 Clinical History: IS NOT under investigation for COVID-19 or is COVID-19 negative 73 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 please place abscess drain. Contact number for responsible provider who can be reached for any questions or notifications of critical findings: [phone] n/a LAST CREATININE 0.9 (06/21/24) Report Status: Verified Date Reported: JUN 22, 2024 Date Verified: JUN 22, 2024 Road Crossing Guard E-Sig:/ES/LISA PENDLETON MD Report: PROCEDURES: Placement of [...] real-time CT fluoroscopy, a 5 Citizen [place] Allmyappsesis catheter was advanced into the collection in the left pelvis. A wire was coiled in the collection. The tract into the collection was dilated to accommodate the 12 Citizen [place] locking pigtail drainage catheter. There was return [...] Primary Interpreting Staff: LISA PENDLETON MD, RADIOLOGIST (Road Crossing Guard) /JRT LISA PENDLETON [facility] Jun 22, 2024 11:[address] NEEDLE PLACEMEN T (P): MEGFLACA YAMIL [id number] -1950 M Exm Date: JUN 22, 2024@11:48 Req Phys: ANGELA HOLDEN Loc: [facility]/06-22-2024@17:14 Img Loc: CT IMAGING Service: [place] [address] (Case [id number] COMPLETE) CT SCAN FOR NEEDLE PLACEMENT (CT Detailed) CPT:25154 Reason for Study: l pelvic abscess drain Clinical History: Report Status: Verified Date Reported: JUN 22, 2024 Date Verified: JUN 22, 2024 [address] Crossing Guard E-Sig:/ES/LISA PENDLETON MD Report: PROCEDURES: Placement of [...] real-time CT fluoroscopy, a 5 Citizen [place] Allmyappsesis catheter was advanced into the collection in the left pelvis. A wire was coiled in the collection. The tract into the collection was dilated to accommodate the 12 Citizen [place] locking pigtail drainage catheter. There was return [...] Primary Interpreting Staff: LISA PENDLETON MD, RADIOLOGIST (Road Crossing Guard) /JRLISA [facility] Jun 21, 2024 06:[address] (AP) ABDOMEN/PE LVIS (P): FLACA WEAVER [id number] -1950 M Exm Date: JUN 21, 2024@18:09 Req Phys: DELIA MARTINEZ Loc: [facility] EMERGENCY DEPT WALK-IN (Re Img Loc: CT IMAGING Service: [place] [address] (Case [id number] COMPLETE) CT (AP) ABDOMEN/PELVIS W CONTRAST(CT Detailed) CPT:82394 Contrast Media : Non-ionic Iodinated Reason for [...] PLASMA .CREAT EGFR(CKD-E >90 Ref: >=60 Allergies: ([place] only) TERAZOSIN (Mar 13, 2015) Defer to [...] 21, 2024 Date Verified: JUN 21, 2024 Road Crossing Guard E-Sig:/ES/CARLOS A CUNNINGHAM DO Report: EXAMINATION: CT [...] Interpreting Staff: CARLOS A CUNNINGHAM DO, RADIOLOGIST (Road Crossing Guard) /CARLOS A ROWELL [facility] Pathology Reports: +/- 30 [...] $APHDR Reporting Lab: [facility] [CLIA# [id number]] [place] [address] - - - - - - - [...] - PATHOLOGY REPORT Accession No. [id number] - - - - - - - [...] - PATHOLOGY REPORT Accession No. [id number] - - - - - - - [...] Second circumferential surgical margin, en face; E-F: Kitchen Assistant diverticula; G: Kitchen Assistant section of mesentery; H: Random patient accounting representative section of additional adipose tissue fragment. [...] Report Performed By: [facility] [CLIA# [id number]] [place] [address] $FTR - - - - - - [...] - - FLACA WEAVER STANDARD FORM 515 ID:[id number] SEX:M :1950 AGE: 73 LOC:86968 ADM:Jun DX:DIVERTICULITIS PCP: Jatinder Cabrera /alexi/ EDUARDO PALOMARES MD STAFF PATHOLOGIST Signed: 07/06/2024 10:40 EDUARDO PALOMARES [facility] Jun 22, 2024 01:15 PM LR MICROBIOLOGY RE PORT: Reporting Lab: [facility] [CLIA# [id number]] [place] [address] Accession [UID]: [id number] [[id number]] Received: Jun 22, 2024@13:38 Collection sample: FLUID Collection date: Jun 22, 2024 13:15 Provider: ANGELA HOLDEN Comment on specimen: LLQ ABSCESS, RECEIVED IN ANAEROBIC TRANSPORT VIAL Test(s) ordered: GRAM STAIN.................... completed: Jun 22, 2024 15:03 CULTURE & SUSCEPTIBILITY...... completed: Jun 25, 2024 * BACTERIOLOGY FINAL REPORT => Jun 25, 2024 10:56 TECH CODE: [id number] GRAM STAIN: DIRECT SMEAR of specimen before [...] Report Performed By: [facility] [CLIA# [id number]] [place] [address] [facility] Jun 22, 2024 01:15 PM LR MICROBIOLOGY RE PORT: Reporting Lab: [facility] [CLIA# [id number]] [place] [address] Accession [UID]: [id number] [[id number]] Received: Jun 22, 2024@13:38 Collection sample: FLUID Collection date: Jun 22, 2024 13:15 Provider: ANGELA HOLDEN Comment on specimen: LLQ ABSCESS, RECEIVED IN ANAEROBIC TRANSPORT VIAL Test(s) ordered: ANAEROBIC CULTURE............. completed: Jun 28, 2024 * BACTERIOLOGY FINAL REPORT => Jun 28, 2024 10:08 TECH CODE: [id number] CULTURE RESULTS: HEAVY GROWTH MIXED ANAEROBES Comment: [...] Report Performed By: [facility] [CLIA# [id number]] [place] [address] [facility] Jun 21, 2024 06:12 PM LR MICROBIOLOGY RE PORT: Reporting Lab: [facility] [CLIA# [id number]] [place] [address] Accession [UID]: [id number] [[id number]] Received: Jun 21, 2024@18:12 Collection sample: BLOOD [...] Report Performed By: [facility] [CLIA# [id number]] [place] [address] [facility] Jun 21, 2024 06:11 PM LR MICROBIOLOGY RE PORT: Reporting Lab: [facility] [CLIA# [id number]] [place] [address] Accession [UID]: [id number] [[id number]] Received: Jun 21, 2024@18:11 Collection sample: BLOOD [...] Report Performed By: [facility] [CLIA# [id number]] [place] [address] [facility] Jun 08, 2024 11:00 AM LR MICROBIOLOGY RE PORT: Reporting Lab: [facility] [CLIA# [id number]] [place] [address] Accession [UID]: [id number] [[id number]] Received: Jun 08, 2024@11:00 Collection sample: URINE Collection date: Jun 08, 2024 11:00 Provider: MARYBETH POWELL Comment on specimen: urine Test(s) ordered: CULTURE & SUSCEPTIBILITY...... completed: Jun 09, 2024 * BACTERIOLOGY FINAL REPORT => Jun 09, 2024 19:12 TECH CODE: [id number] CULTURE RESULTS: ESCHERICHIA COLI - Quantity: >100,000 [...] Report Performed By: [facility] [CLIA# [id number]] [place] [address] [facility]
--- OUTSIDE RECORDS SUMMARY | 2024-07-16 07:40 | XMS_ITS | Encounter Summary ---
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 Date/Time Encounter Type Encounter Description Reason Pro vider Source Jul 03, 2024 09:16 AM Inpatient Visit ADMIN PAT ACTIVTIES (GametimeCT) SYSTEM,CIS-ARK IHE Encounter Template Text not used [...] 13, 2024 08:15 AM [facility] Active, Pending, and Scheduled Orders This section includes a listing of several types of active, pending, and scheduled orders, including clinic medications orders, diagnostic test orders, procedure orders and consult orders; where the start date of the order is 45 days before the date of the Encounter or 45 days after the date of theEncounter. The data comes from all [facility]. Test Date/Time Test Type Test Details [...] & SCREEN - LAB BLOOD WC [facility] Jul 03, 2024 12:00 AM Laboratory - Blood Bank Order TYPE & SCREEN - LAB BLOOD WC [facility] Jul 16, 2024 12:00 AM [...] 09, 2024 12:23 PM Reporting Lab: [facility] [address] Performing Lab: [facility] [address] PHOSPHORUS 3.0 mg/dL 2.3-4.3 Jul 10, 2024 07:[address] [facility] BASIC METABOLIC PANEL+MG Specimen Type: PLASMA No comment entered. Ordering Provider: JUANCARLOS ECHOLS S Report Released Date/Time: Jul 09, 2024 12:23 PM Reporting Lab: [facility] [address] Performing Lab: [facility] [address] CREATININE 0.7 mg/dL 0.7-1.2 UREA NITROGEN 27 [...] 09, 2024 12:23 PM Reporting Lab: [facility] [address] Performing Lab: [facility] [address] WBC 18.8 H 4.0-11.0 RBC 5.08 4.60-6.20 [...] 08, 2024 06:18 PM Reporting Lab: [facility] [address] Performing Lab: [facility] [address] WBC 15.3 H 4.0-11.0 RBC 4.91 4.60-6.20 [...] 08, 2024 08:41 AM Reporting Lab: [facility] [address] Performing Lab: [facility] [address] URINE COLOR YELLOW SPECIFIC GRAVITY >1.050 H [...] 07, 2024 04:49 PM Reporting Lab: [facility] [address] Performing Lab: [facility] [address] WBC 17.5 H 4.0-11.0 RBC 4.88 4.60-6.20 [...] 07, 2024 04:49 PM Reporting Lab: [facility] [address] Performing Lab: [facility] [address] PHOSPHORUS 2.6 mg/dL 2.3-4.3 Jul 08, 2024 09:[address] [facility] BASIC METABOLIC PANEL+MG Specimen Type: PLASMA Comment: Specimen received in Lab at: 0952 Ordering Provider: JUANCARLOS ECHOLS S Report Released Date/Time: Jul 07, 2024 04:49 PM Reporting Lab: [facility] [address] Performing Lab: [facility] [address] CREATININE 0.9 mg/dL 0.7-1.2 UREA NITROGEN 26 [...] 07, 2024 12:26 PM Reporting Lab: [facility] [address] Performing Lab: [facility] [address] C DIFF TOX B GENE PCR NEGATIVE Negative Jul 07, 2024 07:[address] [facility] PHOSPHORUS Specimen Type: PLASMA No comment entered. Ordering Provider: JEVON ZAZUETA Report Released Date/Time: Jul 06, 2024 03:44 PM Reporting Lab: [facility] [address] Performing Lab: [facility] [address] PHOSPHORUS 3.1 mg/dL 2.3-4.3 Jul 07, 2024 07:[address] [facility] BASIC METABOLIC PANEL+MG Specimen Type: PLASMA No comment entered. Ordering Provider: JEVON ZAZUETA Report Released Date/Time: Jul 06, 2024 03:44 PM Reporting Lab: [facility] [address] Performing Lab: [facility] [address] CREATININE 0.9 mg/dL 0.7-1.2 UREA NITROGEN 20 [...] 06, 2024 03:44 PM Reporting Lab: [facility] [address] Performing Lab: [facility] [address] WBC 21.2 H 4.0-11.0 RBC 5.09 4.60-6.20 [...] 05, 2024 01:22 PM Reporting Lab: [facility] [address] Performing Lab: [facility] [address] WBC 18.0 H 4.0-11.0 RBC 4.83 4.60-6.20 [...] 05, 2024 01:22 PM Reporting Lab: [facility] [address] Performing Lab: [facility] [address] PHOSPHORUS 3.6 mg/dL 2.3-4.3 Jul 06, 2024 07:[address] [facility] BASIC METABOLIC PANEL+MG Specimen Type: PLASMA No comment entered. Ordering Provider: JEVON ZAZUETA Report Released Date/Time: Jul 05, 2024 01:22 PM Reporting Lab: [facility] [address] Performing Lab: [facility] [address] CREATININE 0.7 mg/dL 0.7-1.2 UREA NITROGEN 12 [...] 04, 2024 09:39 AM Reporting Lab: [facility] [address] Performing Lab: [facility] [address] MAGNESIUM 2.0 mg/dL 1.6-2.6 Jul 05, 2024 07:[address] [facility] PHOSPHORUS Specimen Type: PLASMA No comment entered. Ordering Provider: JUANCARLOS ECHOLS S Report Released Date/Time: Jul 04, 2024 09:39 AM Reporting Lab: [facility] [address] Performing Lab: [facility] [address] PHOSPHORUS 2.0 mg/dL L 2.3-4.3 Jul 05, 2024 07:[address] [facility] BASIC METABOLIC PANEL+MG Specimen Type: PLASMA No comment entered. Ordering Provider: JUANCARLOS ECHOLS S Report Released Date/Time: Jul 04, 2024 09:39 AM Reporting Lab: [facility] [address] Performing Lab: [facility] [address] CREATININE 0.7 mg/dL 0.7-1.2 UREA NITROGEN 12 [...] 04, 2024 09:39 AM Reporting Lab: [facility] [address] Performing Lab: [facility] [address] WBC 18.3 H 4.0-11.0 RBC 4.49 L [...] 03, 2024 06:31 PM Reporting Lab: [facility] [address] Performing Lab: [facility] [address] CREATININE 0.7 mg/dL 0.7-1.2 UREA NITROGEN 16 [...] 03, 2024 06:31 PM Reporting Lab: [facility] [address] Performing Lab: [facility] [address] PHOSPHORUS 2.8 mg/dL 2.3-4.3 Jul 04, 2024 07:[address] [facility] CBC Specimen Type: BLOOD No comment entered. Ordering Provider: GABINO CAMERON Report Released Date/Time: Jul 03, 2024 06:31 PM Reporting Lab: [facility] [address] Performing Lab: [facility] [address] WBC 20.6 H 4.0-11.0 RBC 4.63 4.60-6.20 [...] 03, 2024 06:31 PM Reporting Lab: [facility] [address] Performing Lab: [facility] [address] WBC 20.6 H 4.0-11.0 RBC 4.63 4.60-6.20 [...] 03, 2024 06:31 PM Reporting Lab: [facility] [address] Performing Lab: [facility] [address] BNP 292 pg/mL H <99 Jul 03, 2024 10:[address] [facility] FINGERSTICK GLUCOSE Specimen Type: BLOOD Comment: Save Result Nurse Notified Ordering Provider: KATELYNN PERSON Report Released Date/Time: Jul 03, 2024 10:50 PM Reporting Lab: [facility] [address] Performing Lab: [facility] [address] FINGERSTICK GLUCOSE 126 mg/dL H 70-100 Jul 03, 2024 05:[address] [facility] FINGERSTICK GLUCOSE Specimen Type: BLOOD Comment: Save Result Nurse Notified Ordering Provider: KATELYNN PERSON Report Released Date/Time: Jul 03, 2024 05:46 PM Reporting Lab: [facility] [address] Performing Lab: [facility] [address] FINGERSTICK GLUCOSE 141 mg/dL H 70-100 Jul 03, 2024 02:[address] [facility] POC ABG/ELECTROLYTES Specimen Type: ARTERIAL BLOOD Comment: FIO2 = 97% Patient Temp: 36.0 C Sample Type = ARTERIAL Ordering Provider: MAZIN ARREDONDO Report Released Date/Time: Jul 03, 2024 01:48 PM Reporting Lab: [facility] [address] Performing Lab: [facility] [address] POC PH 7.387 7.35-7.45 POC PCO2 34.4 [...] 03, 2024 01:48 PM Reporting Lab: [facility] [address] Performing Lab: [facility] [address] POC PH 7.280 L 7.35-7.45 POC PCO2 [...] 12, 2024 04:01 PM Reporting Lab: [facility] [address] Performing Lab: [facility] [address] URINE COLOR YELLOW SPECIFIC GRAVITY 1.031 1.003-1.03 [...] 12, 2024 03:59 PM Reporting Lab: [facility] [address] Performing Lab: [facility] [address] WBC 15.8 H 4.0-11.0 RBC 5.11 4.60-6.20 [...] 23, 2024 06:07 PM Reporting Lab: [facility] [address] Performing Lab: [facility] [address] CREATININE 0.8 mg/dL 0.7-1.2 UREA NITROGEN 13 [...] 23, 2024 06:07 PM Reporting Lab: [facility] [address] Performing Lab: [facility] [address] WBC 15.5 H 4.0-11.0 RBC 4.93 4.60-6.20 [...] 22, 2024 05:51 PM Reporting Lab: [facility] [address] Performing Lab: [facility] [address] CREATININE 0.7 mg/dL 0.7-1.2 UREA NITROGEN 16 [...] 22, 2024 05:51 PM Reporting Lab: [facility] [address] Performing Lab: [facility] [address] WBC 14.9 H 4.0-11.0 RBC 5.09 4.60-6.20 [...] 22, 2024 05:51 PM Reporting Lab: [facility] [address] Performing Lab: [facility] [address] WBC 16.9 H 4.0-11.0 RBC 5.28 4.60-6.20 HGB 16.9 g/dL 13.5-17.9 HCT 50.4 41.0-54.0 MCV 95.5 fL 80.0-100.0 MCH 32.0 pg 27.0-33.0 MCHC 33.5 g/dL 32.0-37.5 PLT 223 150-400 MPV 10.9 fL 9.1-13.0 RDW 14.0 11.5-14.5 Jun 22, 2024 06:[address] [facility] COMPREHENSIVE METABOLIC PANEL+MG Specimen Type: PLASMA No comment entered. Ordering Provider: JEVON ZAZUETA Report Released Date/Time: Jun 22, 2024 05:51 PM Reporting Lab: [facility] [address] Performing Lab: [facility] [address] CREATININE 0.7 mg/dL 0.7-1.2 UREA NITROGEN 17 [...] >60 Jun 21, 2024 06:[address] [facility] URINALYSIS Specimen Type: URINE No comment entered. Ordering Provider: DELIA MARTINEZ Report Released Date/Time: Jun 21, 2024 05:45 PM Reporting Lab: [facility] [address] Performing Lab: [facility] [address] URINE COLOR YELLOW SPECIFIC GRAVITY 1.041 H [...] 21, 2024 06:07 PM Reporting Lab: [facility] [address] Performing Lab: [facility] [address] POC CREATININE 1.1 mg/dL 0.6-1.3 Jun 21, 2024 05:[address] [facility] POC ABG/LACTATE Specimen Type: VENOUS BLOOD No comment entered. Ordering Provider: DELIA MARTINEZ Report Released Date/Time: Jun 21, 2024 06:07 PM Reporting Lab: [facility] [address] Performing Lab: [facility] [address] POC PH 7.470 H 7.31-7.41 POC PCO2 [...] 21, 2024 05:30 PM Reporting Lab: [facility] [address] Performing Lab: [facility] [address] .INR 1.2 H 0.8-1.1 .PT 13.9 s H 9.4-12.5 Jun 21, 2024 05:[address] [facility] EXTRA GOLD GEL TUBE Specimen Type: SERUM No comment entered. Ordering Provider: DELIA MARTINEZ Report Released Date/Time: Jun 21, 2024 05:41 PM Reporting Lab: [facility] [address] Performing Lab: [facility] [address] EXTRA GOLD GEL TUBE RECEIVED Jun 21, 2024 05:[address] [facility] LIPASE Specimen Type: PLASMA No comment entered. Ordering Provider: DELIA MARTINEZ Report Released Date/Time: Jun 21, 2024 05:30 PM Reporting Lab: [facility] [address] Performing Lab: [facility] [address] LIPASE 32 U/L <60 Jun 21, 2024 05:[address] [facility] COMPREHENSIVE METABOLIC PANEL+MG Specimen Type: PLASMA No comment entered. Ordering Provider: DELIA MARTINEZ Report Released Date/Time: Jun 21, 2024 05:30 PM Reporting Lab: [facility] [address] Performing Lab: [facility] [address] CREATININE 0.9 mg/dL 0.7-1.2 UREA NITROGEN 29 [...] 21, 2024 05:30 PM Reporting Lab: [facility] [address] Performing Lab: [facility] [address] WBC 21.3 H 4.0-11.0 RBC 5.48 4.60-6.20 [...] 28, 2024 09:02 AM Reporting Lab: [facility] [address] Performing Lab: [facility] [address] HEMOGLOBIN A1C 4.9 4.0-6.0 Jun 08, 2024 10:[address] [facility] PROTHROMBIN TIME/INR Specimen Type: PLASMA No comment entered. Ordering Provider: MARYBETH POWELL Report Released Date/Time: May 28, 2024 09:02 AM Reporting Lab: [facility] [address] Performing Lab: [facility] [address] .INR 1.0 0.8-1.1 .PT 11.8 s 9.4-12.5 Jun 08, 2024 10:[address] [facility] CBC Specimen Type: BLOOD No comment entered. Ordering Provider: MARYBETH POWELL Report Released Date/Time: May 28, 2024 09:02 AM Reporting Lab: [facility] [address] Performing Lab: [facility] [address] WBC 16.1 H 4.0-11.0 RBC 5.02 4.60-6.20 [...] 28, 2024 09:02 AM Reporting Lab: [facility] [address] Performing Lab: [facility] [address] CREATININE 0.9 mg/dL 0.7-1.2 UREA NITROGEN 15 [...] Source Jul 03, 2024 11:26 PM 3 [facility] Jul 03, 2024 10:33 PM 5 [facility] Jul 03, 2024 08:26 PM 3 [facility] Jul 03, 2024 07:58 PM 5 [facility] Jul 03, 2024 07:25 PM 3 [facility] Social History: Smoking Status (Most [...] HEALTH SERVICES Jun 04, 2022 09:00 AM [place]-TOBACCO QU[place] [address] [facility] [facility] [...] 2016 CLINICAL WARNING TIM TERAN CARL[facility]EDU[facility]O [facility] Radiology Reports: +/- [...] 10:09 AM CHEST 2 VIEWS [place] LAT: FLACA WEAVER [id number] -1950 M Exm Date: JUL 08, 2024@10:09 Req Phys: KATELYNN PERSON Pat Loc: 07-08-2024@11:49 Img Loc: MAIN X-RAY Service: [place] [address] (Case 24 COMPLETE) CHEST 2 VIEWS PA AND LAT (RAD Detailed) CPT:22186 Reason for Study: Uptrending WBC, POD 5 [...] 08, 2024 Date Verified: JUL 08, 2024 Allied Health Teacher E-Sig: Report: CHEST 2 VIEWS PA [...] cardiopulmonary disease. READING PHYSICIAN: Sarbjit Vaughn M.D. -[id number] 07/08/2024 12:46 [facility] National Teleradiology Program [phone] (For Medical Practitioner Use Only) Attention Patients / Veterans: If you have questions or concerns about these test results, please contact your ordering provider or primary care team. Primary Interpreting Staff: RADIOLOGY,OUTSIDE SERVICE, Staff Physician / RADIOLOGY,OUTSIDE SERVICE [facility] Jul 08, 2024 10:[address] (AP) ABDOMEN/PE LVIS W CONTRAST: MEGFLACA YAMIL [id number] -1950 M Exm Date: JUL 08, 2024@10:00 Req Phys: KATELYNN PERSON Pat Loc: 07-08-2024@12:07 Img Loc: CT IMAGING Service: [place] [address] (Case 22 COMPLETE) CT (AP) ABDOMEN/PELVIS W CONTRAST(CT Detailed) CPT:71820 Contrast Media : Non-ionic Iodinated Reason for [...] PLASMA .CREAT EGFR(CKD-E >90 Ref: >=60 Allergies: ([place] only) TERAZOSIN (Mar 13, 2015) Report Status: Verified Date Reported: JUL 08, 2024 Date Verified: JUL 08, 2024 Allied Health Teacher E-Sig: Report: CT (AP) ABDOMEN/PELVIS W CONTRAST HISTORY: POD 5, Uptrending WBC - Concern for Abscess/other infection COMPARISON: June 21, 2024 TECHNIQUE: CT abdomen and pelvis was performed after intravenous contrast. Axial, sagittal and coronal reformatted images. The study was performed at the local [place] facility and images were sent to the [place] National Teleradiology Program (NTP) for interpretation. Number [...] as noted above READING PHYSICIAN: Celestino Blanc -[phone] 07/08/2024 13:04 [facility] [employer] Teleradiology Program [phone] (For Medical Practitioner Use Only) Attention Patients / Veterans: If you have questions or concerns about these test results, please contact your ordering provider or primary care team. Primary Interpreting Staff: RADIOLOGY,OUTSIDE SERVICE, Staff Physician / RADIOLOGY,OUTSIDE SERVICE [facility] Jun 22, 2024 11:49 AM ABSCESS DRAIN PLAC EMENT PERITONEAL (P): FLACA WEAVER [id number] -1950 M Exm Date: JUN 22, 2024@11:49 Req Phys: ANGELA HOLDEN Pat Loc: [facility]06-22-2024@17:14 Img Loc: INTERVENTIONAL RADIOLOGY Service: [place] [address] (Case [id number] COMPLETE) IR PERITONEAL/RETROPERITONEAL PER(ANI Detailed) CPT:39694 Reason for Study: diverticulitis with abscess (Case 3570 COMPLETE) IR MOD SEDATION 10-22 MIN (ANI Detailed) CPT:04593 Clinical History: IS NOT under investigation for COVID-19 or is COVID-19 negative 73 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 please place abscess drain. Contact number for responsible provider who can be reached for any questions or notifications of critical findings: [phone] n/a LAST CREATININE 0.9 (06/21/24) Report Status: Verified Date Reported: JUN 22, 2024 Date Verified: JUN 22, 2024 Allied Health Teacher E-Sig:/ES/LISA PENDLETON MD Report: PROCEDURES: Placement [...] Using real-time CT fluoroscopy, a 5 Mauritanian Nixon centesis catheter was advanced into the collection [...] Primary Interpreting Staff: LISA PENDLETON MD, RADIOLOGIST (Allied Health Teacher) /LISA CARDONA [facility] Jun 22, 2024 11:[address] NEEDLE PLACEMEN T (P): FLACA WEAVER [id number] -1950 M Exm Date: JUN 22, 2024@11:48 Req Phys: ANGELA HOLDEN Loc: 2K/06-22-2024@17:14 Img Loc: CT IMAGING Service: [place] [address] (Case [id number] COMPLETE) CT SCAN FOR NEEDLE PLACEMENT (CT Detailed) CPT:04780 Reason for Study: l pelvic abscess drain Clinical History: Report Status: Verified Date Reported: JUN 22, 2024 Date Verified: JUN 22, 2024 Allied Health Teacher E-Sig:/ES/LISA PENDLETON MD Report: PROCEDURES: Placement [...] Using real-time CT fluoroscopy, a 5 Mauritanian Toad Medicalesis catheter was advanced into the collection in [...] Primary Interpreting Staff: LISA PENDLETON MD, RADIOLOGIST (Allied Health Teacher) /JRT LISA PENDLETON [facility] Jun 21, 2024 06:[address] (AP) ABDOMEN/PE LVIS (P): FLACA WEAVER [id number] -1950 M Exm Date: JUN 21, 2024@18:09 Req Phys: DELIA MARTINEZ Loc: [facility] (Re Img Loc: CT IMAGING Service: [place] [address] (Case [id number] COMPLETE) CT (AP) ABDOMEN/PELVIS W CONTRAST(CT Detailed) CPT:62608 Contrast Media : Non-ionic Iodinated Reason for [...] PLASMA .CREAT EGFR(CKD-E >90 Ref: >=60 Allergies: ([place] only) TERAZOSIN (Mar 13, 2015) Defer to [...] 21, 2024 Date Verified: JUN 21, 2024 Allied Health Teacher E-Sig:/ALEXI/CARLOS A CUNNINGHAM DO Report: EXAMINATION: [...] Interpreting Staff: CARLOS A CUNNINGHAM DO, RADIOLOGIST (Allied Health Teacher) /CARLOS A ROWELL [facility] Pathology Reports: [...] Lab: [facility] [CLIA# [id number]] [place] [address] - - - - - - - [...] - PATHOLOGY REPORT Accession No. [id number] - - - - - - - [...] - PATHOLOGY REPORT Accession No. 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 [CLIA# [id number]] [place] [address] $FTR - - - - - - [...] - - FLACA WEAVER STANDARD FORM 515 ID:[id number] SEX:M :1950 AGE: 73 LOC:66982 ADM:Jun DX:DIVERTICULITIS PCP: Jatinder Cabrera /alexi/ EDUARDO PALOMARES MD STAFF PATHOLOGIST Signed: 07/06/2024 10:[address] [facility] Jun 22, 2024 01:15 PM LR MICROBIOLOGY RE PORT: Reporting Lab: [facility] [CLIA# [id number]] [place] [address] Accession [UID]: [id number] [[id number]] Received: Jun 22, 2024@13:38 Collection sample: FLUID Collection date: Jun 22, 2024 13:15 Provider: ANGELA HOLDEN Comment on specimen: LLQ ABSCESS, RECEIVED IN ANAEROBIC TRANSPORT VIAL Test(s) ordered: GRAM STAIN.................... completed: Jun 22, 2024 15:03 CULTURE & SUSCEPTIBILITY...... completed: Jun 25, 2024 * BACTERIOLOGY FINAL REPORT => Jun 25, 2024 10:56 TECH CODE: [id number] GRAM STAIN: DIRECT SMEAR of specimen before [...] By: [facility] [CLIA# [id number]] [place] [address] [facility] Jun 22, 2024 01:15 PM LR MICROBIOLOGY RE PORT: Reporting Lab: [facility] [CLIA# [id number]] [place] [address] Accession [UID]: [id number] [[id number]] Received: Jun 22, 2024@13:38 Collection sample: FLUID Collection date: Jun 22, 2024 13:15 Provider: ANGELA HOLDEN Comment on specimen: LLQ ABSCESS, RECEIVED IN ANAEROBIC TRANSPORT VIAL Test(s) ordered: ANAEROBIC CULTURE............. completed: Jun 28, 2024 * BACTERIOLOGY FINAL REPORT => Jun 28, 2024 10:08 TECH CODE: [id number] CULTURE RESULTS: HEAVY GROWTH MIXED ANAEROBES Comment: [...] By: [facility] [CLIA# [id number]] [place] [address] [facility] Jun 21, 2024 06:12 PM LR MICROBIOLOGY RE PORT: Reporting Lab: [facility] [CLIA# [id number]] [place] [address] Accession [UID]: [id number] [[id number]] Received: Jun 21, 2024@18:12 Collection sample: BLOOD [...] By: [facility] [CLIA# [id number]] [place] [address] [facility] Jun 21, 2024 06:11 PM LR MICROBIOLOGY RE PORT: Reporting Lab: [facility] [CLIA# [id number]] [place] [address] Accession [UID]: [id number] [[id number]] Received: Jun 21, 2024@18:11 Collection sample: BLOOD [...] By: [facility] [CLIA# [id number]] [place] [address] [facility] Jun 08, 2024 11:00 AM LR MICROBIOLOGY RE PORT: Reporting Lab: [facility] [CLIA# [id number]] [place] [address] Accession [UID]: [id number] [[id number]] Received: Jun 08, 2024@11:00 Collection sample: URINE Collection date: Jun 08, 2024 11:00 Provider: MARYBETH POWELL Comment on specimen: urine Test(s) ordered: CULTURE & SUSCEPTIBILITY...... completed: Jun 09, 2024 * BACTERIOLOGY FINAL REPORT => Jun 09, 2024 19:12 TECH CODE: [id number] CULTURE RESULTS: ESCHERICHIA COLI - Quantity: >100,000 [...] By: [facility] [CLIA# [id number]] [address] [place] [address] [facility] Encounter Notes: All associated encounter notes This section contains the clinical notes associated to the Encounter. Date/Time Encounter Note(s) Provider Source Jul 03, 2024 09:16 AM CRITICAL CARE UNIT NOTE: LOCAL TITLE: [facility] PACU FLOWSHEET STANDARD TITLE: CRITICAL CARE UNIT NOTE DATE OF NOTE: JUL 03, 2024@09:16 ENTRY DATE: JUL 03, 2024@17:21:03 AUTHOR: KELLY WINKLER EXP COSIGNER: URGENCY: STATUS: COMPLETED This is a place aranda only. Please see [employer] to view document. /es/ [employer] ICU DOCUMENT IMPORT Signed: 07/03/2024 17:[address] [facility]
--- OUTSIDE RECORDS SUMMARY | 2024-07-16 07:40 | XMS_ITS ---
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 Date/Time Encounter Type Encounter Description Reason Pro vider Source Jul 03, 2024 05:41 PM Inpatient Visit DAILY HOSPITALIZATION DATA LINDA [...] 20 appointments. The data comes from all [place] treatment facilities. Appointment Date/Time Appointment Type Appointme nt Facility Name Jul 13, 2024 08:15 AM AMBULATORY - NONE [place] [facility] Active, Pending, and Scheduled Orders This section includes a listing of several types of active, pending, and scheduled orders, including clinic medications orders, diagnostic test orders, procedure orders and consult orders; where the start date of the order is 45 days before the date of the Encounter or 45 days after the date of theEncounter. The data comes from all [place] treatment facilities. Test Date/Time Test Type Test [...] LAB BLOOD WC [facility] Jul 03, 2024 12:00 AM [...] Jul 09, 2024 12:23 PM Reporting Lab: [facility] [place] [address] Performing Lab: [facility] [place] [address] PHOSPHORUS 3.0 mg/dL 2.3-4.3 Jul 10, 2024 07:16 AM [facility] BASIC METABOLIC PANEL+MG Specimen Type: PLASMA No comment entered. Ordering Provider: JUANCARLOS ECHOLS S Report Released Date/Time: Jul 09, 2024 12:23 PM Reporting Lab: [facility] [place] [address] Performing Lab: [facility] [place] [address] CREATININE 0.7 mg/dL 0.7-1.2 UREA NITROGEN 27 [...] Jul 09, 2024 12:23 PM Reporting Lab: [facility] [place] [address] Performing Lab: [facility] [place] [address] WBC 18.8 H 4.0-11.0 RBC 5.08 4.60-6.20 [...] Jul 08, 2024 06:18 PM Reporting Lab: [facility] [place] [address] Performing Lab: [facility] [place] [address] WBC 15.3 H 4.0-11.0 RBC 4.91 4.60-6.20 [...] Jul 08, 2024 08:41 AM Reporting Lab: [facility] [place] [address] Performing Lab: [facility] [place] [address] URINE COLOR YELLOW SPECIFIC GRAVITY >1.050 H [...] Jul 07, 2024 04:49 PM Reporting Lab: [facility] [place] [address] Performing Lab: [facility] [place] [address] WBC 17.5 H 4.0-11.0 RBC 4.88 4.60-6.20 [...] Jul 07, 2024 04:49 PM Reporting Lab: [facility] [place] [address] Performing Lab: [facility] [place] [address] PHOSPHORUS 2.6 mg/dL 2.3-4.3 Jul 08, 2024 09:54 AM [facility] BASIC METABOLIC PANEL+MG Specimen Type: PLASMA Comment: Specimen received in Lab at: [id number] Ordering Provider: JUANCARLOS ECHOLS S Report Released Date/Time: Jul 07, 2024 04:49 PM Reporting Lab: [facility] [place] [address] Performing Lab: [facility] [place] [address] CREATININE 0.9 mg/dL 0.7-1.2 UREA NITROGEN 26 [...] Jul 07, 2024 12:26 PM Reporting Lab: [facility] [place] [address] Performing Lab: [facility] [place] [address] C DIFF TOX B GENE PCR NEGATIVE Negative Jul 07, 2024 07:41 AM [facility] PHOSPHORUS Specimen Type: PLASMA No comment entered. Ordering Provider: JEVON ZAZUETA Report Released Date/Time: Jul 06, 2024 03:44 PM Reporting Lab: [facility] [place] [address] Performing Lab: [facility] [place] [address] PHOSPHORUS 3.1 mg/dL 2.3-4.3 Jul 07, 2024 07:41 AM [facility] BASIC METABOLIC PANEL+MG Specimen Type: PLASMA No comment entered. Ordering Provider: JEVON ZAZUETA Report Released Date/Time: Jul 06, 2024 03:44 PM Reporting Lab: [facility] [place] [address] Performing Lab: [facility] [place] [address] CREATININE 0.9 mg/dL 0.7-1.2 UREA NITROGEN 20 [...] Jul 06, 2024 03:44 PM Reporting Lab: [facility] [place] [address] Performing Lab: [facility] [place] [address] WBC 21.2 H 4.0-11.0 RBC 5.09 4.60-6.20 [...] Jul 05, 2024 01:22 PM Reporting Lab: [facility] [place] [address] Performing Lab: [facility] [place] [address] WBC 18.0 H 4.0-11.0 RBC 4.83 4.60-6.20 [...] Jul 05, 2024 01:22 PM Reporting Lab: [facility] [place] [address] Performing Lab: [facility] [place] [address] PHOSPHORUS 3.6 mg/dL 2.3-4.3 Jul 06, 2024 07:21 AM [facility] BASIC METABOLIC PANEL+MG Specimen Type: PLASMA No comment entered. Ordering Provider: JEVON ZAZUETA Report Released Date/Time: Jul 05, 2024 01:22 PM Reporting Lab: [facility] [place] [address] Performing Lab: [facility] [place] [address] CREATININE 0.7 mg/dL 0.7-1.2 UREA NITROGEN 12 [...] Jul 04, 2024 09:39 AM Reporting Lab: [facility] [place] [address] Performing Lab: [facility] [place] [address] MAGNESIUM 2.0 mg/dL 1.6-2.6 Jul 05, 2024 07:17 AM [facility] PHOSPHORUS Specimen Type: PLASMA No comment entered. Ordering Provider: JUANCARLOS ECHOLS S Report Released Date/Time: Jul 04, 2024 09:39 AM Reporting Lab: [facility] [place] [address] Performing Lab: [facility] [place] [address] PHOSPHORUS 2.0 mg/dL L 2.3-4.3 Jul 05, 2024 07:17 AM [facility] BASIC METABOLIC PANEL+MG Specimen Type: PLASMA No comment entered. Ordering Provider: JUANCARLOS ECHOLS S Report Released Date/Time: Jul 04, 2024 09:39 AM Reporting Lab: [facility] [place] [address] Performing Lab: [facility] [place] [address] CREATININE 0.7 mg/dL 0.7-1.2 UREA NITROGEN 12 [...] Jul 04, 2024 09:39 AM Reporting Lab: [facility] [place] [address] Performing Lab: [facility] [place] [address] WBC 18.3 H 4.0-11.0 RBC 4.49 L [...] Jul 03, 2024 06:31 PM Reporting Lab: [facility] [place] [address] Performing Lab: [facility] [place] [address] CREATININE 0.7 mg/dL 0.7-1.2 UREA NITROGEN 16 mg/dL 8-26 GLUCOSE 129 mg/dL H 70-100 SODIUM 137 mmol/L 136-145 POTASSIUM 3.7 mmol/L 3.5-5.1 CHLORIDE 107 mmol/L 98-107 CO2 22 mmol/L 22-29 CALCIUM 9.0 mg/dL 8.4-10.2 MAGNESIUM 1.9 mg/dL 1.6-2.6 ANION GAP 8 mmol/L 5-15 .CREAT EGFR(CKD-EPI) >90 >60 Jul 04, 2024 07:17 AM [facility] PHOSPHORUS Specimen Type: PLASMA No comment entered. Ordering Provider: GABINO CAMERON Report Released Date/Time: Jul 03, 2024 06:31 PM Reporting Lab: [facility] [place] [address] Performing Lab: [facility] [place] [address] PHOSPHORUS 2.8 mg/dL 2.3-4.3 Jul 04, 2024 07:16 AM [facility] CBC Specimen Type: BLOOD No comment entered. Ordering Provider: GABINO CAMERON Report Released Date/Time: Jul 03, 2024 06:31 PM Reporting Lab: [facility] [place] [address] Performing Lab: [facility] [place] [address] WBC 20.6 H 4.0-11.0 RBC 4.63 4.60-6.20 [...] Jul 03, 2024 06:31 PM Reporting Lab: [facility] [place] [address] Performing Lab: [facility] [place] [address] WBC 20.6 H 4.0-11.0 RBC 4.63 4.60-6.20 [...] Jul 03, 2024 06:31 PM Reporting Lab: [facility] [place] [address] Performing Lab: [facility] [place] [address] BNP 292 pg/mL H <99 Jul 03, 2024 10:32 PM [facility] FINGERSTICK GLUCOSE Specimen Type: BLOOD Comment: Save Result Nurse Notified Ordering Provider: KATELYNN PERSON Report Released Date/Time: Jul 03, 2024 10:50 PM Reporting Lab: [facility] [place] [address] Performing Lab: [facility] [place] [address] FINGERSTICK GLUCOSE 126 mg/dL H 70-100 Jul 03, 2024 05:33 PM [facility] FINGERSTICK GLUCOSE Specimen Type: BLOOD Comment: Save Result Nurse Notified Ordering Provider: KATELYNN PERSON Report Released Date/Time: Jul 03, 2024 05:46 PM Reporting Lab: [facility] [place] [address] Performing Lab: [facility] [place] [address] FINGERSTICK GLUCOSE 141 mg/dL H 70-100 Jul 03, 2024 02:31 PM [facility] POC ABG/ELECTROLYTES Specimen Type: ARTERIAL BLOOD Comment: FIO2 = 97% Patient Temp: 36.0 C Sample Type = ARTERIAL Ordering Provider: MAZIN ARREDONDO Report Released Date/Time: Jul 03, 2024 01:48 PM Reporting Lab: [facility] [place] [address] Performing Lab: [facility] [place] [address] POC PH 7.387 7.35-7.45 POC PCO2 34.4 [...] Jul 03, 2024 01:48 PM Reporting Lab: [facility] [place] [address] Performing Lab: [facility] [place] [address] POC PH 7.280 L 7.35-7.45 POC PCO2 [...] Jun 12, 2024 04:01 PM Reporting Lab: [facility] [place] [address] Performing Lab: [facility] [place] [address] URINE COLOR YELLOW SPECIFIC GRAVITY 1.031 1.003-1.03 [...] Jun 12, 2024 03:59 PM Reporting Lab: [facility] [place] [address] Performing Lab: [facility] [place] [address] WBC 15.8 H 4.0-11.0 RBC 5.11 4.60-6.20 [...] Jun 23, 2024 06:07 PM Reporting Lab: [facility] [place] [address] Performing Lab: [facility] [place] [address] CREATININE 0.8 mg/dL 0.7-1.2 UREA NITROGEN 13 [...] Jun 23, 2024 06:07 PM Reporting Lab: [facility] [place] [address] Performing Lab: [facility] [place] [address] WBC 15.5 H 4.0-11.0 RBC 4.93 4.60-6.20 [...] Jun 22, 2024 05:51 PM Reporting Lab: [facility] [place] [address] Performing Lab: [facility] [place] [address] CREATININE 0.7 mg/dL 0.7-1.2 UREA NITROGEN 16 [...] Jun 22, 2024 05:51 PM Reporting Lab: [facility] [place] [address] Performing Lab: [facility] [place] [address] WBC 14.9 H 4.0-11.0 RBC 5.09 4.60-6.20 [...] Jun 22, 2024 05:51 PM Reporting Lab: [facility] [place] [address] Performing Lab: [facility] [place] [address] WBC 16.9 H 4.0-11.0 RBC 5.28 4.60-6.20 [...] Jun 22, 2024 05:51 PM Reporting Lab: [facility] [place] [address] Performing Lab: [facility] [place] [address] CREATININE 0.7 mg/dL 0.7-1.2 UREA NITROGEN 17 [...] Jun 21, 2024 05:45 PM Reporting Lab: [facility] [place] [address] Performing Lab: [facility] [place] [address] URINE COLOR YELLOW SPECIFIC GRAVITY 1.041 H [...] Jun 21, 2024 06:07 PM Reporting Lab: [facility] [place] [address] Performing Lab: [facility] [place] [address] POC CREATININE 1.1 mg/dL 0.6-1.3 Jun 21, 2024 05:30 PM [facility] POC ABG/LACTATE Specimen Type: VENOUS BLOOD No comment entered. Ordering Provider: DELIA MARTINEZ Report Released Date/Time: Jun 21, 2024 06:07 PM Reporting Lab: [facility] [place] [address] Performing Lab: [facility] [place] [address] POC PH 7.470 H 7.31-7.41 POC PCO2 [...] Jun 21, 2024 05:30 PM Reporting Lab: [facility] [place] [address] Performing Lab: [facility] [place] [address] .INR 1.2 H 0.8-1.1 .PT 13.9 s H 9.4-12.5 Jun 21, 2024 05:24 PM [facility] LIPASE Specimen Type: PLASMA No comment entered. Ordering Provider: DELIA MARTINEZ Report Released Date/Time: Jun 21, 2024 05:30 PM Reporting Lab: [facility] [place] [address] Performing Lab: [facility] [place] [address] LIPASE 32 U/L <60 Jun 21, 2024 05:24 PM [facility] EXTRA GOLD GEL TUBE Specimen Type: SERUM No comment entered. Ordering Provider: DELIA MARTINEZ Report Released Date/Time: Jun 21, 2024 05:41 PM Reporting Lab: [facility] [place] [address] Performing Lab: [facility] [place] [address] EXTRA GOLD GEL TUBE RECEIVED Jun 21, 2024 05:24 PM [facility] COMPREHENSIVE METABOLIC PANEL+MG Specimen Type: PLASMA No comment entered. Ordering Provider: DELIA MARTINEZ Report Released Date/Time: Jun 21, 2024 05:30 PM Reporting Lab: [facility] [place] [address] Performing Lab: [facility] [place] [address] CREATININE 0.9 mg/dL 0.7-1.2 UREA NITROGEN 29 [...] Jun 21, 2024 05:30 PM Reporting Lab: [facility] [place] [address] Performing Lab: [facility] [place] [address] WBC 21.3 H 4.0-11.0 RBC 5.48 4.60-6.20 [...] MORPHOLOGY PRESENT Jun 08, 2024 10:59 AM [facility] PROTHROMBIN TIME/INR Specimen Type: PLASMA No comment entered. Ordering Provider: MARYBETH POWELL Report Released Date/Time: May 28, 2024 09:02 AM Reporting Lab: [facility] [place] [address] Performing Lab: [facility] [place] [address] .INR 1.0 0.8-1.1 .PT 11.8 s 9.4-12.5 Jun 08, 2024 10:59 AM [facility] HEMOGLOBIN A1C Specimen Type: BLOOD [...] May 28, 2024 09:02 AM Reporting Lab: [facility] [place] [address] Performing Lab: [facility] [place] [address] HEMOGLOBIN A1C 4.9 4.0-6.0 Jun 08, 2024 10:59 AM [facility] CBC Specimen Type: BLOOD No comment entered. Ordering Provider: MARYBETH POWELL Report Released Date/Time: May 28, 2024 09:02 AM Reporting Lab: [facility] [place] [address] Performing Lab: [facility] [place] [address] WBC 16.1 H 4.0-11.0 RBC 5.02 4.60-6.20 HGB 16.0 g/dL 13.5-17.9 HCT 47.1 41.0-54.0 MCV 93.8 fL 80.0-100.0 MCH 31.9 pg 27.0-33.0 MCHC 34.0 g/dL 32.0-37.5 PLT 228 150-400 MPV 10.3 fL 9.1-13.0 RDW 14.6 H 11.5-14.5 Jun 08, 2024 10:59 AM [facility] BASIC METABOLIC PANEL+MG Specimen Type: PLASMA No comment entered. Ordering Provider: MARYBETH POWELL Report Released Date/Time: May 28, 2024 09:02 AM Reporting Lab: [facility] [place] [address] Performing Lab: [facility] [place] [address] CREATININE 0.9 mg/dL 0.7-1.2 UREA NITROGEN 15 [...] Source Jul 03, 2024 11:26 PM 3 [facility] Jul 03, 2024 10:33 PM 5 [facility] Jul 03, 2024 08:26 PM 3 [facility] Jul 03, 2024 07:58 PM 5 [facility] Jul 03, 2024 07:25 PM 3 [facility] Social History: [...] VIEWS LILIAM Mustafa [place] LAT: FLACA WEAVER [id number] -1950 M Exm Date: JUL 08, 2024@10:09 Req Phys: KATELYNN PERSON Loc: [facility]/07-08-2024@11:49 Img Loc: MAIN X-RAY Service: [place] [address] (Case 24 COMPLETE) CHEST 2 VIEWS PA AND LAT (RAD Detailed) CPT:87935 Reason for Study: Uptrending WBC, POD 5 [...] 08, 2024 Date Verified: JUL 08, 2024 [employer] E-Sig: Report: CHEST 2 VIEWS PA AND [...] cardiopulmonary disease. READING PHYSICIAN: Sarbjit Vaughn M.D. -[phone] 07/08/2024 12:46 [facility] National Teleradiology Program [phone] (For Medical Practitioner Use Only) Attention Patients / Veterans: If you have questions or concerns about these test results, please contact your ordering provider or primary care team. Primary Interpreting Staff: RADIOLOGY,OUTSIDE SERVICE, Staff Physician / RADIOLOGY,OUTSIDE SERVICE [facility] Jul 08, 2024 10:[address] (AP) ABDOMEN/PE LVIS W CONTRAST: FLACA WEAVER [id number] -1950 M Exm Date: JUL 08, 2024@10:00 Req Phys: KATELYNN PERSON Pat Loc: 2KG/07-08-2024@12:07 Img Loc: CT IMAGING Service: [place] [address] (Case 22 COMPLETE) CT (AP) ABDOMEN/PELVIS W CONTRAST(CT Detailed) CPT:14328 Contrast Media : Non-ionic Iodinated Reason for [...] PLASMA .CREAT EGFR(CKD-E >90 Ref: >=60 Allergies: ([facility] only) TERAZOSIN (Mar 13, 2015) Report Status: Verified Date Reported: JUL 08, 2024 Date Verified: JUL 08, 2024 [employer] E-Sig: Report: CT (AP) ABDOMEN/PELVIS W CONTRAST [...] as noted above READING PHYSICIAN: Celestino Blanc -[phone] 07/08/2024 13:04 [facility] National Teleradiology Program [phone] (For Medical Practitioner Use Only) Attention Patients / Veterans: If you have questions or concerns about these test results, please contact your ordering provider or primary care team. Primary Interpreting Staff: RADIOLOGY,OUTSIDE SERVICE, Staff Physician / RADIOLOGY,OUTSIDE SERVICE [facility] Jun 22, 2024 11:49 AM ABSCESS DRAIN PLAC EMENT PERITONEAL (P): FLACA WEAVER [id number] -1950 M Exm Date: JUN 22, 2024@11:49 Req Phys: ANGELA HOLDEN Loc: [facility]06-22-2024@17:14 Img Loc: INTERVENTIONAL RADIOLOGY Service: [place] [address] (Case [id number] COMPLETE) IR PERITONEAL/RETROPERITONEAL PER(ANI Detailed) CPT:28811 Reason for Study: diverticulitis with abscess (Case 3570 COMPLETE) IR MOD SEDATION 10-22 MIN (ANI Detailed) CPT:43264 Clinical History: IS NOT under investigation for COVID-19 or is COVID-19 negative 73 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 please place abscess drain. Contact number for responsible provider who can be reached for any questions or notifications of critical findings: [phone] n/a LAST CREATININE 0.9 (06/21/24) Report Status: Verified Date Reported: JUN 22, 2024 Date Verified: JUN 22, 2024 [employer] E-Sig:/ES/LISA PENDLETON MD Report: PROCEDURES: Placement of [...] anesthesia. Using real-time CT fluoroscopy, a 5 Japanese Sliced Investingesis catheter was advanced into the collection in the left pelvis. A wire was coiled in the collection. The tract into the collection was dilated to accommodate the 12 Japanese locking pigtail drainage catheter. There was return [...] Primary Interpreting Staff: LISA PENDLETON MD, RADIOLOGIST ([employer]) /JRT LISA PENDLETON [facility] Jun 22, 2024 11:[address] NEEDLE PLACEMEN T (P): MEGFLACADARCI LOBO [id number] -1950 M Exm Date: JUN 22, 2024@11:48 Req Phys: ANGELA HOLDEN Loc: [facility]/06-22-2024@17:14 Img Loc: CT IMAGING Service: [place] [address] (Case [id number] COMPLETE) CT SCAN FOR NEEDLE PLACEMENT (CT Detailed) CPT:15066 Reason for Study: l pelvic abscess drain Clinical History: Report Status: Verified Date Reported: JUN 22, 2024 Date Verified: JUN 22, 2024 [employer] E-Sig:/ES/LISA PENDLETON MD Report: PROCEDURES: Placement of [...] anesthesia. Using real-time CT fluoroscopy, a 5 Japanese Sliced Investingesis catheter was advanced into the collection in the left pelvis. A wire was coiled in the collection. The tract into the collection was dilated to accommodate the 12 Japanese locking pigtail drainage catheter. There was return [...] Primary Interpreting Staff: LISA PENDLETON MD, RADIOLOGIST ([employer]) /JRLISA [facility] Jun 21, 2024 06:[address] (AP) ABDOMEN/PE LVIS (P): FLACA WEAVER [id number] -1950 M Exm Date: JUN 21, 2024@18:09 Req Phys: DELIA MARTINEZ Loc: [facility] EMERGENCY DEPT WALK-IN (Re Img Loc: CT IMAGING Service: [place] [address] (Case [id number] COMPLETE) CT (AP) ABDOMEN/PELVIS W CONTRAST(CT Detailed) CPT:60285 Contrast Media : Non-ionic Iodinated Reason for [...] PLASMA .CREAT EGFR(CKD-E >90 Ref: >=60 Allergies: ([facility] only) TERAZOSIN (Mar 13, 2015) Defer to [...] 21, 2024 Date Verified: JUN 21, 2024 [employer] E-Sig:/ES/CARLOS A CUNNINGHAM DO Report: EXAMINATION: CT [...] Interpreting Staff: CARLOS A CUNNINGHAM DO, RADIOLOGIST ([employer]) /CARLOS A ROWELL [facility] [...] Reporting Lab: [facility] [CLIA# [id number]] [place] [address] - - - - - - - [...] - PATHOLOGY REPORT Accession No. [id number] - - - - - - - [...] - PATHOLOGY REPORT Accession No. [id number] - - - - - - - [...] Second circumferential surgical margin, en face; E-F: Hunter Guide diverticula; G: Hunter Guide section of mesentery; H: Random assistance representative section of additional adipose tissue fragment. [...] Performed By: [facility] [CLIA# [id number]] [place] [address] $FTR - - - - - - [...] - - FLACA WEAVER STANDARD FORM 515 ID:[id number] SEX:M :1950 AGE: 73 LOC:22223 ADM:Jun DX:DIVERTICULITIS PCP: Jatinder Cabrera /alexi/ EDUARDO PALOMARES MD STAFF PATHOLOGIST Signed: 07/06/2024 10:40 EDUARDO PALOMARES [facility] Jun 22, 2024 01:15 PM LR MICROBIOLOGY RE PORT: Reporting Lab: [facility] [CLIA# [id number]] [place] [address] Accession [UID]: [id number] [[id number]] Received: Jun 22, 2024@13:38 Collection sample: FLUID Collection date: Jun 22, 2024 13:15 Provider: ANGELA HOLDEN Comment on specimen: LLQ ABSCESS, RECEIVED IN ANAEROBIC TRANSPORT VIAL Test(s) ordered: GRAM STAIN.................... completed: Jun 22, 2024 15:03 CULTURE & SUSCEPTIBILITY...... completed: Jun 25, 2024 * BACTERIOLOGY FINAL REPORT => Jun 25, 2024 10:56 TECH CODE: [id number] GRAM STAIN: DIRECT SMEAR of specimen before [...] Performed By: [facility] [CLIA# [id number]] [place] [address] [facility] Jun 22, 2024 01:15 PM LR MICROBIOLOGY RE PORT: Reporting Lab: [facility] [CLIA# [id number]] [place] [address] Accession [UID]: [id number] [[id number]] Received: Jun 22, 2024@13:38 Collection sample: FLUID Collection date: Jun 22, 2024 13:15 Provider: ANGELA HOLDEN Comment on specimen: LLQ ABSCESS, RECEIVED IN ANAEROBIC TRANSPORT VIAL Test(s) ordered: ANAEROBIC CULTURE............. completed: Jun 28, 2024 * BACTERIOLOGY FINAL REPORT => Jun 28, 2024 10:08 TECH CODE: [id number] CULTURE RESULTS: HEAVY GROWTH MIXED ANAEROBES Comment: [...] Performed By: [facility] [CLIA# [id number]] [place] [address] [facility] Jun 21, 2024 06:12 PM LR MICROBIOLOGY RE PORT: Reporting Lab: [facility] [CLIA# [id number]] [place] [address] Accession [UID]: [id number] [[id number]] Received: Jun 21, 2024@18:12 Collection sample: BLOOD [...] Performed By: [facility] [CLIA# [id number]] [place] [address] [facility] Jun 21, 2024 06:11 PM LR MICROBIOLOGY RE PORT: Reporting Lab: [facility] [CLIA# [id number]] [place] [address] Accession [UID]: [id number] [[id number]] Received: Jun 21, 2024@18:11 Collection sample: BLOOD [...] Performed By: [facility] [CLIA# [id number]] [place] [address] [facility] Jun 08, 2024 11:00 AM LR MICROBIOLOGY RE PORT: Reporting Lab: [facility] [CLIA# [id number]] [place] [address] Accession [UID]: [id number] [[id number]] Received: Jun 08, 2024@11:00 Collection sample: URINE Collection date: Jun 08, 2024 11:00 Provider: MARYBETH POWELL Comment on specimen: urine Test(s) ordered: CULTURE & SUSCEPTIBILITY...... completed: Jun 09, 2024 * BACTERIOLOGY FINAL REPORT => Jun 09, 2024 19:12 TECH CODE: [id number] CULTURE RESULTS: ESCHERICHIA COLI - Quantity: >100,000 [...] Performed By: [facility] [CLIA# [id number]] [place] [address] [facility]
--- OUTSIDE RECORDS SUMMARY | 2024-07-16 07:41 | XMS_ITS | Encounter Summary ---
Author Name [facility] Organization [facility] [place] Address [address] [place] [address] Care Team Providers Care Mind Reader Name Role Phone JATINDER CABRERA Primary Care [...] PART A Sep 29, 2016 PART A [phone] JUDY WEAVER PATIENT Selected Encounter This section includes the information on record at [place] for the Encounter. Date/Time Encounter Type Encounter Description Reason Pro vider Source Jul 03, 2024 12:00 AM Outpatient Encounter EVENT (HISTORICAL) [...] 2024 08:15 AM AMBULATORY - NONE [facility] Active, Pending, and Scheduled Orders [...] TYPE & SCREEN - LAB BLOOD SP [facility] Jun 08, 2024 09:57 AM Laboratory - Chemi stry Order URINALYSIS URINE WC ONCE [facility] Jun 12, 2024 12:00 AM Laboratory - Chemi stry Order BNP PLASMA SP ONCE [facility] Jun 21, 2024 05:45 PM Laboratory - Blood Bank Order TYPE & SCREEN - LAB BLOOD [facility] Jul 03, 2024 12:00 AM Laboratory - Blood Bank Order TYPE & SCREEN - LAB BLOOD [facility] Jul 16, 2024 12:00 AM Laboratory - Chemi stry Order CBC BLOOD SP ONCE [facility] Jul 17, 2024 12:00 AM Laboratory - Chemi stry Order BASIC METABOLIC PANEL+MG PLASMA SP ONCE [facility] Lab Results: +/- [...] Range Comment Jul 10, 2024 07:16 AM [facility] PHOSPHORUS Specimen Type: PLASMA No comment entered. Ordering Provider: JUANCARLOS ECHOLS S Report Released Date/Time: Jul 09, 2024 12:23 PM Reporting Lab: [facility] [address] Performing Lab: [facility] [address] PHOSPHORUS 3.0 mg/dL 2.3-4.3 Jul 10, 2024 07:16 AM [facility] BASIC METABOLIC PANEL+MG Specimen Type: PLASMA No comment entered. Ordering Provider: JUANCARLOS ECHOLS S Report Released Date/Time: Jul 09, 2024 12:23 PM Reporting Lab: [facility] [address] Performing Lab: [facility] [address] CREATININE 0.7 mg/dL 0.7-1.2 UREA NITROGEN 27 mg/dL H 8-26 GLUCOSE 104 mg/dL H 70-100 SODIUM 133 mmol/L L 136-145 POTASSIUM 4.3 mmol/L 3.5-5.1 CHLORIDE 102 mmol/L 98-107 CO2 19 mmol/L L 22-29 CALCIUM 10.1 mg/dL 8.4-10.2 MAGNESIUM 1.9 mg/dL 1.6-2.6 ANION GAP 12 mmol/L 5-15 .CREAT EGFR(CKD-EPI) >90 >60 Jul 10, 2024 07:15 AM [facility] CBC Specimen Type: BLOOD No comment entered. Ordering Provider: JUANCARLOS ECHOLS Report Released Date/Time: Jul 09, 2024 12:23 PM Reporting Lab: [facility] [address] Performing Lab: [facility] [address] WBC 18.8 H 4.0-11.0 RBC 5.08 4.60-6.20 HGB 15.9 g/dL 13.5-17.9 HCT 46.8 41.0-54.0 MCV 92.1 fL 80.0-100.0 MCH 31.3 pg 27.0-33.0 MCHC 34.0 g/dL 32.0-37.5 PLT 479 H 150-400 MPV 10.2 fL 9.1-13.0 RDW 13.7 11.5-14.5 Jul 09, 2024 07:08 AM [facility] CBC Specimen Type: BLOOD No comment entered. Ordering Provider: QUYNH WEISS Report Released Date/Time: Jul 08, 2024 06:18 PM Reporting Lab: [facility] [address] Performing Lab: [facility] [address] WBC 15.3 H 4.0-11.0 RBC 4.91 4.60-6.20 HGB 15.1 g/dL 13.5-17.9 HCT 45.7 41.0-54.0 MCV 93.1 fL 80.0-100.0 MCH 30.8 pg 27.0-33.0 MCHC 33.0 g/dL 32.0-37.5 PLT 443 H 150-400 MPV 10.0 fL 9.1-13.0 RDW 13.5 11.5-14.5 Jul 08, 2024 10:50 AM [facility] URINALYSIS Specimen Type: URINE No comment entered. Ordering Provider: KATELYNN PERSON Report Released Date/Time: Jul 08, 2024 08:41 AM Reporting Lab: [facility] [address] Performing Lab: [facility] [address] URINE COLOR YELLOW SPECIFIC GRAVITY >1.050 H [...] NEGATIVE NEGATIVE Jul 08, 2024 09:54 AM [facility] CBC Specimen Type: BLOOD Comment: Specimen received in Lab at: [id number] Ordering Provider: JUANCARLOS ECHOLS Report Released Date/Time: Jul 07, 2024 04:49 PM Reporting Lab: [facility] [address] Performing Lab: [facility] [address] WBC 17.5 H 4.0-11.0 RBC 4.88 4.60-6.20 HGB 14.9 g/dL 13.5-17.9 HCT 45.7 41.0-54.0 MCV 93.6 fL 80.0-100.0 MCH 30.5 pg 27.0-33.0 MCHC 32.6 g/dL 32.0-37.5 PLT 472 H 150-400 MPV 10.2 fL 9.1-13.0 RDW 13.7 11.5-14.5 Jul 08, 2024 09:54 AM [facility] PHOSPHORUS Specimen Type: PLASMA Comment: Specimen received in Lab at: 0952 Ordering Provider: BALAJADIA,MAR IA S Report Released Date/Time: Jul 07, 2024 04:49 PM Reporting Lab: [facility] [address] Performing Lab: [facility] [address] PHOSPHORUS 2.6 mg/dL 2.3-4.3 Jul 08, 2024 09:54 AM [facility] BASIC METABOLIC PANEL+MG Specimen Type: PLASMA Comment: Specimen received in Lab at: 0952 Ordering Provider: JUANCARLOS ECHOLS Report Released Date/Time: Jul 07, 2024 04:49 PM Reporting Lab: [facility] [address] Performing Lab: [facility] [address] CREATININE 0.9 mg/dL 0.7-1.2 UREA NITROGEN 26 mg/dL 8-26 GLUCOSE 128 mg/dL H 70-100 SODIUM 134 mmol/L L 136-145 POTASSIUM 3.4 mmol/L L 3.5-5.1 CHLORIDE 100 mmol/L 98-107 CO2 24 mmol/L 22-29 CALCIUM 9.8 mg/dL 8.4-10.2 MAGNESIUM 1.8 mg/dL 1.6-2.6 ANION GAP 10 mmol/L 5-15 .CREAT EGFR(CKD-EPI) >90 >60 Jul 07, 2024 02:00 PM [facility] C DIFF PANEL Specimen Type: FECES No comment entered. Ordering Provider: JEVON ZAZUETA Report Released Date/Time: Jul 07, 2024 12:26 PM Reporting Lab: [facility] [address] Performing Lab: [facility] [address] C DIFF TOX B GENE PCR NEGATIVE Negative Jul 07, 2024 07:41 AM [facility] PHOSPHORUS Specimen Type: PLASMA No comment entered. Ordering Provider: JEVON ZAZUETA Report Released Date/Time: Jul 06, 2024 03:44 PM Reporting Lab: [facility] [address] Performing Lab: [facility] [address] PHOSPHORUS 3.1 mg/dL 2.3-4.3 Jul 07, 2024 07:41 AM [facility] BASIC METABOLIC PANEL+MG Specimen Type: PLASMA No comment entered. Ordering Provider: JEVON ZAZUETA Report Released Date/Time: Jul 06, 2024 03:44 PM Reporting Lab: [facility] [address] Performing Lab: [facility] [address] CREATININE 0.9 mg/dL 0.7-1.2 UREA NITROGEN 20 mg/dL 8-26 GLUCOSE 157 mg/dL H 70-100 SODIUM 136 mmol/L 136-145 POTASSIUM 3.7 mmol/L 3.5-5.1 CHLORIDE 102 mmol/L 98-107 CO2 21 mmol/L L 22-29 CALCIUM 9.8 mg/dL 8.4-10.2 MAGNESIUM 1.9 mg/dL 1.6-2.6 ANION GAP 13 mmol/L 5-15 .CREAT EGFR(CKD-EPI) >90 >60 Jul 07, 2024 07:40 AM [facility] CBC Specimen Type: BLOOD No comment entered. Ordering Provider: JEVON ZAZUETA Report Released Date/Time: Jul 06, 2024 03:44 PM Reporting Lab: [facility] [address] Performing Lab: [facility] [address] WBC 21.2 H 4.0-11.0 RBC 5.09 4.60-6.20 HGB 15.9 g/dL 13.5-17.9 HCT 48.3 41.0-54.0 MCV 94.9 fL 80.0-100.0 MCH 31.2 pg 27.0-33.0 MCHC 32.9 g/dL 32.0-37.5 PLT 500 H 150-400 MPV 10.3 fL 9.1-13.0 RDW 13.6 11.5-14.5 Jul 06, 2024 07:21 AM [facility] CBC Specimen Type: BLOOD No comment entered. Ordering Provider: JEVON ZAZUETA Report Released Date/Time: Jul 05, 2024 01:22 PM Reporting Lab: [facility] [address] Performing Lab: [facility] [address] WBC 18.0 H 4.0-11.0 RBC 4.83 4.60-6.20 HGB 14.6 g/dL 13.5-17.9 HCT 45.5 41.0-54.0 MCV 94.2 fL 80.0-100.0 MCH 30.2 pg 27.0-33.0 MCHC 32.1 g/dL 32.0-37.5 PLT 368 150-400 MPV 10.4 fL 9.1-13.0 RDW 13.6 11.5-14.5 Jul 06, 2024 07:21 AM [facility] PHOSPHORUS Specimen Type: PLASMA No comment entered. Ordering Provider: JEVON ZAZUETA Report Released Date/Time: Jul 05, 2024 01:22 PM Reporting Lab: [facility] [address] Performing Lab: [facility] [address] PHOSPHORUS 3.6 mg/dL 2.3-4.3 Jul 06, 2024 07:21 AM [facility] BASIC METABOLIC PANEL+MG Specimen Type: PLASMA No comment entered. Ordering Provider: JEVON ZAZUETA Report Released Date/Time: Jul 05, 2024 01:22 PM Reporting Lab: [facility] [address] Performing Lab: [facility] [address] CREATININE 0.7 mg/dL 0.7-1.2 UREA NITROGEN 12 mg/dL 8-26 GLUCOSE 108 mg/dL H 70-100 SODIUM 138 mmol/L 136-145 POTASSIUM 3.4 mmol/L L 3.5-5.1 CHLORIDE 104 mmol/L 98-107 CO2 20 mmol/L L 22-29 CALCIUM 9.3 mg/dL 8.4-10.2 MAGNESIUM 1.9 mg/dL 1.6-2.6 ANION GAP 14 mmol/L 5-15 .CREAT EGFR(CKD-EPI) >90 >60 Jul 05, 2024 07:17 AM [facility] MAGNESIUM Specimen Type: PLASMA No comment entered. Ordering Provider: JUANCARLOS ECHOLS S Report Released Date/Time: Jul 04, 2024 09:39 AM Reporting Lab: [facility] [address] Performing Lab: [facility] [address] MAGNESIUM 2.0 mg/dL 1.6-2.6 Jul 05, 2024 07:17 AM [facility] PHOSPHORUS Specimen Type: PLASMA No comment entered. Ordering Provider: JUANCARLOS ECHOLS S Report Released Date/Time: Jul 04, 2024 09:39 AM Reporting Lab: [facility] [address] Performing Lab: [facility] [address] PHOSPHORUS 2.0 mg/dL L 2.3-4.3 Jul 05, 2024 07:17 AM [facility] BASIC METABOLIC PANEL+MG Specimen Type: PLASMA No comment entered. Ordering Provider: JUANCARLOS ECHOLS S Report Released Date/Time: Jul 04, 2024 09:39 AM Reporting Lab: [facility] [address] Performing Lab: [facility] [address] CREATININE 0.7 mg/dL 0.7-1.2 UREA NITROGEN 12 mg/dL 8-26 GLUCOSE 84 mg/dL 70-100 SODIUM 135 mmol/L L 136-145 POTASSIUM 3.8 mmol/L 3.5-5.1 CHLORIDE 104 mmol/L 98-107 CO2 24 mmol/L 22-29 CALCIUM 9.3 mg/dL 8.4-10.2 MAGNESIUM 2.0 mg/dL 1.6-2.6 ANION GAP 7 mmol/L 5-15 .CREAT EGFR(CKD-EPI) >90 >60 Jul 05, 2024 07:16 AM [facility] CBC Specimen Type: BLOOD No comment entered. Ordering Provider: JUANCARLOS ECHOLS S Report Released Date/Time: Jul 04, 2024 09:39 AM Reporting Lab: [facility] [address] Performing Lab: [facility] [address] WBC 18.3 H 4.0-11.0 RBC 4.49 L 4.60-6.20 HGB 14.1 g/dL 13.5-17.9 HCT 43.4 41.0-54.0 MCV 96.7 fL 80.0-100.0 MCH 31.4 pg 27.0-33.0 MCHC 32.5 g/dL 32.0-37.5 PLT 317 150-400 MPV 10.0 fL 9.1-13.0 RDW 13.9 11.5-14.5 Jul 04, 2024 07:17 AM [facility] BASIC METABOLIC PANEL+MG Specimen Type: PLASMA No comment entered. Ordering Provider: GABINO CAMERON Report Released Date/Time: Jul 03, 2024 06:31 PM Reporting Lab: [facility] [address] Performing Lab: [facility] [address] CREATININE 0.7 mg/dL 0.7-1.2 UREA NITROGEN 16 mg/dL 8-26 GLUCOSE 129 mg/dL H 70-100 SODIUM 137 mmol/L 136-145 POTASSIUM 3.7 mmol/L 3.5-5.1 CHLORIDE 107 mmol/L 98-107 CO2 22 mmol/L 22-29 CALCIUM 9.0 mg/dL 8.4-10.2 MAGNESIUM 1.9 mg/dL 1.6-2.6 ANION GAP 8 mmol/L 5-15 .CREAT EGFR(CKD-EPI) >90 >60 Jul 04, 2024 07:17 AM [facility] PHOSPHORUS Specimen Type: PLASMA No comment entered. Ordering Provider: GABINO CAMERON Report Released Date/Time: Jul 03, 2024 06:31 PM Reporting Lab: [facility] [address] Performing Lab: [facility] [address] PHOSPHORUS 2.8 mg/dL 2.3-4.3 Jul 04, 2024 07:16 AM [facility] CBC Specimen Type: BLOOD No comment entered. Ordering Provider: GABINO CAMERON Report Released Date/Time: Jul 03, 2024 06:31 PM Reporting Lab: [facility] [address] Performing Lab: [facility] [address] WBC 20.6 H 4.0-11.0 RBC 4.63 4.60-6.20 HGB 14.2 g/dL 13.5-17.9 HCT 43.4 41.0-54.0 MCV 93.7 fL 80.0-100.0 MCH 30.7 pg 27.0-33.0 MCHC 32.7 g/dL 32.0-37.5 PLT 329 150-400 MPV 10.4 fL 9.1-13.0 RDW 13.8 11.5-14.5 Jul 04, 2024 07:16 AM [facility] CBC & DIFF Specimen Type: BLOOD Comment: Manual Differential Performed Ordering Provider: GABINO CAMERON Report Released Date/Time: Jul 03, 2024 06:31 PM Reporting Lab: [facility] [address] Performing Lab: [facility] [address] WBC 20.6 H 4.0-11.0 RBC 4.63 4.60-6.20 [...] MORPHOLOGY PRESENT Jul 04, 2024 07:15 AM [facility] BNP Specimen Type: PLASMA No comment entered. Ordering Provider: GABINO CAMERON Report Released Date/Time: Jul 03, 2024 06:31 PM Reporting Lab: [facility] [address] Performing Lab: [facility] [address] BNP 292 pg/mL H <99 Jul 03, 2024 10:32 PM [facility] FINGERSTICK GLUCOSE Specimen Type: BLOOD Comment: Save Result Nurse Notified Ordering Provider: KATELYNN PERSON Report Released Date/Time: Jul 03, 2024 10:50 PM Reporting Lab: [facility] [address] Performing Lab: [facility] [address] FINGERSTICK GLUCOSE 126 mg/dL H 70-100 Jul 03, 2024 05:33 PM [facility] FINGERSTICK GLUCOSE Specimen Type: BLOOD Comment: Save Result Nurse Notified Ordering Provider: KATELYNN PERSON Report Released Date/Time: Jul 03, 2024 05:46 PM Reporting Lab: [facility] [address] Performing Lab: [facility] [address] FINGERSTICK GLUCOSE 141 mg/dL H 70-100 Jul 03, 2024 02:31 PM [facility] POC ABG/ELECTROLYTES Specimen Type: ARTERIAL BLOOD Comment: FIO2 = 97% Patient Temp: 36.0 C Sample Type = ARTERIAL Ordering Provider: MAZIN ARREDONDO Report Released Date/Time: Jul 03, 2024 01:48 PM Reporting Lab: [facility] [address] Performing Lab: [facility] [address] POC PH 7.387 7.35-7.45 POC PCO2 34.4 [...] H 80.0-105.0 Jul 03, 2024 01:05 PM [facility] POC ABG/ELECTROLYTES Specimen Type: ARTERIAL BLOOD Comment: FIO2 = 53% Patient Temp: 36.2 C Sample Type = ARTERIAL Ordering Provider: MAZIN ARREDONDO Report Released Date/Time: Jul 03, 2024 01:48 PM Reporting Lab: [facility] [address] Performing Lab: [facility] [address] POC PH 7.280 L 7.35-7.45 POC PCO2 [...] mm[Hg] 80.0-105.0 Jul 03, 2024 06:15 AM [facility] URINALYSIS Specimen Type: URINE No comment entered. Ordering Provider: MARYBETH POWELL Report Released Date/Time: Jun 12, 2024 04:01 PM Reporting Lab: [facility] [address] Performing Lab: [facility] [address] URINE COLOR YELLOW SPECIFIC GRAVITY 1.031 1.003-1.03 [...] 250 NEGATIVE Jul 03, 2024 06:13 AM [facility] CBC Specimen Type: BLOOD No comment entered. Ordering Provider: MARYBETH POWELL Report Released Date/Time: Jun 12, 2024 03:59 PM Reporting Lab: [facility] [address] Performing Lab: [facility] [address] WBC 15.8 H 4.0-11.0 RBC 5.11 4.60-6.20 HGB 16.1 g/dL 13.5-17.9 HCT 49.1 41.0-54.0 MCV 96.1 fL 80.0-100.0 MCH 31.5 pg 27.0-33.0 MCHC 32.8 g/dL 32.0-37.5 PLT 357 150-400 MPV 9.8 fL 9.1-13.0 RDW 13.7 11.5-14.5 Jun 24, 2024 09:50 AM [facility] BASIC METABOLIC PANEL+MG Specimen Type: PLASMA Comment: Specimen received in Lab at: 0948 Ordering Provider: JEVON ZAZUETA Report Released Date/Time: Jun 23, 2024 06:07 PM Reporting Lab: [facility] [address] Performing Lab: [facility] [address] CREATININE 0.8 mg/dL 0.7-1.2 UREA NITROGEN 13 mg/dL 8-26 GLUCOSE 135 mg/dL H 70-100 SODIUM 135 mmol/L L 136-145 POTASSIUM 3.6 mmol/L 3.5-5.1 CHLORIDE 103 mmol/L 98-107 CO2 24 mmol/L 22-29 CALCIUM 9.2 mg/dL 8.4-10.2 MAGNESIUM 1.9 mg/dL 1.6-2.6 ANION GAP 8 mmol/L 5-15 .CREAT EGFR(CKD-EPI) >90 >60 Jun 24, 2024 09:50 AM [facility] CBC Specimen Type: BLOOD Comment: Specimen received in Lab at: 0948 Ordering Provider: JEVON ZAZUETA Report Released Date/Time: Jun 23, 2024 06:07 PM Reporting Lab: [facility] [address] Performing Lab: [facility] [address] WBC 15.5 H 4.0-11.0 RBC 4.93 4.60-6.20 HGB 15.2 g/dL 13.5-17.9 HCT 46.5 41.0-54.0 MCV 94.3 fL 80.0-100.0 MCH 30.8 pg 27.0-33.0 MCHC 32.7 g/dL 32.0-37.5 PLT 223 150-400 MPV 11.4 fL 9.1-13.0 RDW 13.9 11.5-14.5 Jun 23, 2024 07:52 AM [facility] COMPREHENSIVE METABOLIC PANEL+MG Specimen Type: PLASMA No comment entered. Ordering Provider: JEVON ZAZUETA Report Released Date/Time: Jun 22, 2024 05:51 PM Reporting Lab: [facility] [address] Performing Lab: [facility] [address] CREATININE 0.7 mg/dL 0.7-1.2 UREA NITROGEN 16 [...] >90 >60 Jun 23, 2024 07:52 AM [facility] CBC & DIFF Specimen Type: BLOOD Comment: Automated Differential Performed Ordering Provider: JEVON ZAZUETA Report Released Date/Time: Jun 22, 2024 05:51 PM Reporting Lab: [facility] [address] Performing Lab: [facility] [address] WBC 14.9 H 4.0-11.0 RBC 5.09 4.60-6.20 [...] 0.1 0.0-0.1 Jun 22, 2024 06:10 PM [facility] CBC Specimen Type: BLOOD No comment entered. Ordering Provider: JEVON ZAZUTEA Report Released Date/Time: Jun 22, 2024 05:51 PM Reporting Lab: [facility] [address] Performing Lab: [facility] [address] WBC 16.9 H 4.0-11.0 RBC 5.28 4.60-6.20 HGB 16.9 g/dL 13.5-17.9 HCT 50.4 41.0-54.0 MCV 95.5 fL 80.0-100.0 MCH 32.0 pg 27.0-33.0 MCHC 33.5 g/dL 32.0-37.5 PLT 223 150-400 MPV 10.9 fL 9.1-13.0 RDW 14.0 11.5-14.5 Jun 22, 2024 06:10 PM [facility] COMPREHENSIVE METABOLIC PANEL+MG Specimen Type: PLASMA No comment entered. Ordering Provider: JEVON ZAZUETA Report Released Date/Time: Jun 22, 2024 05:51 PM Reporting Lab: [facility] [address] Performing Lab: [facility] [address] CREATININE 0.7 mg/dL 0.7-1.2 UREA NITROGEN 17 [...] >90 >60 Jun 21, 2024 06:48 PM [facility] URINALYSIS Specimen Type: URINE No comment entered. Ordering Provider: DELIA MARTINEZ Report Released Date/Time: Jun 21, 2024 05:45 PM Reporting Lab: [facility] [address] Performing Lab: [facility] [address] URINE COLOR YELLOW SPECIFIC GRAVITY 1.041 H [...] 500 NEGATIVE Jun 21, 2024 05:34 PM [facility] POC CREATININE Specimen Type: BLOOD No comment entered. Ordering Provider: DELIA MARTINEZ Report Released Date/Time: Jun 21, 2024 06:07 PM Reporting Lab: [facility] [address] Performing Lab: [facility] [address] POC CREATININE 1.1 mg/dL 0.6-1.3 Jun 21, 2024 05:30 PM [facility] POC ABG/LACTATE Specimen Type: VENOUS BLOOD No comment entered. Ordering Provider: DELIA MARTINEZ Report Released Date/Time: Jun 21, 2024 06:07 PM Reporting Lab: [facility] [address] Performing Lab: [facility] [address] POC PH 7.470 H 7.31-7.41 POC PCO2 31.2 mm[Hg] L 41.00-51 .0 0 POC PO2 46 mm[Hg] H 35.0-40.0 POC TCO2 24 mmol/L 24.0-29.0 POC HCO3 22.7 mmol/L L 23.0-28.0 POC BE ECT -1 mmol/L POC SO2 85 H 70-75 POC LACTATE 1.85 mmol/L 0.90-1.70 Jun 21, 2024 05:24 PM [facility] PROTHROMBIN TIME/INR Specimen Type: PLASMA No comment entered. Ordering Provider: DELIA MARTINEZ Report Released Date/Time: Jun 21, 2024 05:30 PM Reporting Lab: [facility] [address] Performing Lab: [facility] [address] .INR 1.2 H 0.8-1.1 .PT 13.9 s H 9.4-12.5 Jun 21, 2024 05:24 PM [facility] LIPASE Specimen Type: PLASMA No comment entered. Ordering Provider: DELIA MARTINEZ Report Released Date/Time: Jun 21, 2024 05:30 PM Reporting Lab: [facility] [address] Performing Lab: [facility] [address] LIPASE 32 U/L <60 Jun 21, 2024 05:24 PM [facility] EXTRA GOLD GEL TUBE Specimen Type: SERUM No comment entered. Ordering Provider: DELIA MARTINEZ Report Released Date/Time: Jun 21, 2024 05:41 PM Reporting Lab: [facility] [address] Performing Lab: [facility] [address] EXTRA GOLD GEL TUBE RECEIVED Jun 21, 2024 05:24 PM [facility] COMPREHENSIVE METABOLIC PANEL+MG Specimen Type: PLASMA No comment entered. Ordering Provider: DELIA MARTINEZ Report Released Date/Time: Jun 21, 2024 05:30 PM Reporting Lab: [facility] [address] Performing Lab: [facility] [address] CREATININE 0.9 mg/dL 0.7-1.2 UREA NITROGEN 29 [...] mg/dL <0.5 Jun 21, 2024 05:24 PM [facility] CBC & DIFF Specimen Type: BLOOD Comment: Manual Differential Performed Ordering Provider: DELIA MARTINEZ Report Released Date/Time: Jun 21, 2024 05:30 PM Reporting Lab: [facility] [address] Performing Lab: [facility] [address] WBC 21.3 H 4.0-11.0 RBC 5.48 4.60-6.20 [...] MORPHOLOGY PRESENT Jun 08, 2024 10:59 AM [facility] PROTHROMBIN TIME/INR Specimen Type: PLASMA No comment entered. Ordering Provider: MARYBETH POWELL Report Released Date/Time: May 28, 2024 09:02 AM Reporting Lab: [facility] [phone] Performing Lab: [facility] [address] .INR 1.0 0.8-1.1 .PT 11.8 s 9.4-12.5 Jun 08, 2024 10:59 AM [facility] HEMOGLOBIN A1C Specimen Type: BLOOD [...] May 28, 2024 09:02 AM Reporting Lab: [facility] [id number] Performing Lab: [facility] [id number] HEMOGLOBIN A1C 4.9 4.0-6.0 Jun 08, 2024 10:59 AM [facility] CBC Specimen Type: BLOOD No comment entered. Ordering Provider: MARYBETH POWELL Report Released Date/Time: May 28, 2024 09:02 AM Reporting Lab: [facility] [address] Performing Lab: [facility] [address] WBC 16.1 H 4.0-11.0 RBC 5.02 4.60-6.20 HGB 16.0 g/dL 13.5-17.9 HCT 47.1 41.0-54.0 MCV 93.8 fL 80.0-100.0 MCH 31.9 pg 27.0-33.0 MCHC 34.0 g/dL 32.0-37.5 PLT 228 150-400 MPV 10.3 fL 9.1-13.0 RDW 14.6 H 11.5-14.5 Jun 08, 2024 10:59 AM [facility] BASIC METABOLIC PANEL+MG Specimen Type: PLASMA No comment entered. Ordering Provider: MARYBETH POWELL Report Released Date/Time: May 28, 2024 09:02 AM Reporting Lab: [facility] [address] Performing Lab: [facility] [address] CREATININE 0.9 mg/dL 0.7-1.2 UREA NITROGEN 15 [...] Source Jul 03, 2024 11:26 PM 3 [facility] Jul 03, 2024 10:33 PM 5 [facility] Jul 03, 2024 08:26 PM 3 [facility] Jul 03, 2024 07:58 PM 5 [facility] Jul 03, 2024 07:25 PM 3 [facility] Social History: Smoking Status (Most current) [...] 15, 2024 08:30 AM [facility] YRS OR MORE [facility] May 06, 2023 11:30 AM 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 The data comes from all [facility]. Date Advance Directives Provider Source Mar [...] VIEWS LILIAM Mustafa ND LAT: MEGFLACA YAMIL [id number] -1950 M Exm Date: JUL 08, 2024@10:09 Req Phys: KATELYNN PERSON Loc: 2KG/07-08-2024@11:49 Img Loc: MAIN X-RAY Service: [place] [address] (Case 24 COMPLETE) CHEST 2 VIEWS PA AND LAT (RAD Detailed) CPT:19091 Reason for Study: Uptrending WBC, POD 5 Clinical History: [place] IS NOT under investigation for COVID-19 or is COVID-19 negative POD 5, work up for uptrending wbc Responsible provider name and phone number to notify for critical findings if other than user placing the order and pager listed below: User placing orders pager: Katelynn Person LAST CREATININE 0.9 (07/07/24) Report Status: Verified Date Reported: JUL 08, 2024 Date Verified: JUL 08, 2024 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 READING PHYSICIAN: Sarbjit Vaughn M.D. -[phone] 07/08/2024 12:46 EST [facility] National Teleradiology Program [phone] (For Medical Practitioner Use Only) Attention Patients / Veterans: If you have questions or concerns about these test results, please contact your ordering provider or primary care team. Primary Interpreting Staff: RADIOLOGY,OUTSIDE SERVICE, Staff Physician / RADIOLOGY,OUTSIDE SERVICE [facility] Jul 08, 2024 10:[address] (AP) ABDOMEN/PE LVIS W CONTRAST: MEGFLACADARCI LOBO [id number] -1950 M Exm Date: JUL 08, 2024@10:00 Req Phys: KATELYNN PERSON Pat Loc: 2KG/07-08-2024@12:07 Img Loc: CT IMAGING [place]: [place] [address] (Case 22 COMPLETE) CT (AP) ABDOMEN/PELVIS W CONTRAST(CT Detailed) CPT:26539 Contrast Media : Non-ionic Iodinated Reason for [...] PLASMA .CREAT EGFR(CKD-E >90 Ref: >=60 Allergies: ([place] only) TERAZOSIN (Mar 13, 2015) Report Status: Verified Date Reported: JUL 08, 2024 Date Verified: JUL 08, 2024 Geotechnical Engineering Technician E-Sig: Report: CT (AP) ABDOMEN/PELVIS W [...] as noted above READING PHYSICIAN: Celestino Blanc -[id number] 07/08/2024 13:[address] [facility] [employer]radiology Program [phone] (For Medical Practitioner Use Only) Attention Patients / Veterans: If you have questions or concerns about these test results, please contact your ordering provider or primary care team. Primary Interpreting Staff: RADIOLOGY,OUTSIDE SERVICE, Staff Physician / RADIOLOGY,OUTSIDE SERVICE [facility] Jun 22, 2024 11:49 AM ABSCESS DRAIN PLAC EMENT PERITONEAL (P): FLACA WEAVER [id number] -1950 M Exm Date: JUN 22, 2024@11:49 Req Phys: ANGELA HOLDEN Loc: [facility]06-22-2024@17:14 Img Loc: INTERVENTIONAL RADIOLOGY Service: [facility] [address] (Case [id number] COMPLETE) IR PERITONEAL/RETROPERITONEAL PER(ANI Detailed) CPT:81434 Reason for Study: diverticulitis with abscess (Case 3570 COMPLETE) IR MOD SEDATION 10-22 MIN (ANI Detailed) CPT:71231 Clinical History: [place] IS NOT under investigation for COVID-19 or is COVID-19 negative 73 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 please place abscess drain. Contact number for responsible provider who can be reached for any questions or notifications of critical findings: [phone] n/a LAST CREATININE 0.9 (06/21/24) Report Status: Verified Date Reported: JUN 22, 2024 Date Verified: JUN 22, 2024 Geotechnical Engineering Technician E-Sig:/ES/LISA PENDLETON MD Report: PROCEDURES: Placement [...] a 5 Citizen Of [place] [employer]esis catheter was advanced into the collection [...] Primary Interpreting Staff: LISA PENDLETON MD, RADIOLOGIST (Geotechnical Engineering Technician) /JRT LISA PENDLETON [facility] Jun 22, 2024 11:[address] NEEDLE PLACEMEN T (P): MEGFLACA YAMIL [id number] -1950 M Exm Date: JUN 22, 2024@11:48 Req Phys: ANGELA HOLDEN Loc: [facility]/06-22-2024@17:14 Img Loc: CT IMAGING Service: [place] [address] (Case [id number] COMPLETE) CT SCAN FOR NEEDLE PLACEMENT (CT Detailed) CPT:98414 Reason for Study: l pelvic abscess drain Clinical History: Report Status: Verified Date Reported: JUN 22, 2024 Date Verified: JUN 22, 2024 Geotechnical Engineering Technician E-Sig:/ES/LISA PENDLETON MD Report: PROCEDURES: Placement [...] a 5 Citizen Of [place] [employer] centesis catheter was advanced into the collection [...] Primary Interpreting Staff: LISA PENDLETON MD, RADIOLOGIST (Geotechnical Engineering Technician) /JRT LISA PENDLETON [facility] Jun 21, 2024 06:[address] (AP) ABDOMEN/PE LVIS (P): FLACA WEAVER [id number] -1950 M Exm Date: JUN 21, 2024@18:09 Req Phys: DELIA MARTINEZ Loc: [facility] EMERGENCY DEPT WALK-IN (Re Img Loc: CT IMAGING Service: [place] [address] (Case [id number] COMPLETE) CT (AP) ABDOMEN/PELVIS W CONTRAST(CT Detailed) CPT:39445 Contrast Media : Non-ionic Iodinated Reason for [...] PLASMA .CREAT EGFR(CKD-E >90 Ref: >=60 Allergies: ([place] only) TERAZOSIN (Mar 13, 2015) Defer to [...] 21, 2024 Date Verified: JUN 21, 2024 Geotechnical Engineering Technician E-Sig:/ALEXI/CARLOS A CUNNINGHAM DO Report: EXAMINATION: [...] Interpreting Staff: CARLOS A CUNNINGHAM DO, RADIOLOGIST (Geotechnical Engineering Technician) /CARLOS A ROWELL [facility] Pathology Reports: +/- 30 [...] COSIGNER: URGENCY: STATUS: COMPLETED $APHDR Reporting Lab: [facility] [CLIA# [id number]] [place] [address] - - - - - - - [...] - PATHOLOGY REPORT Accession No. [id number] - - - - - - - [...] - PATHOLOGY REPORT Accession No. [id number] - - - - - - - [...] Second circumferential surgical margin, en face; E-F: Block Breaker diverticula; G: Block Breaker section of mesentery; H: Random inbound call center representative section of additional adipose tissue fragment. 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 515 ID:[id number] SEX:M :1950 AGE: 73 LOC:41176 ADM:Jun DX:DIVERTICULITIS PCP: Jatinder Cabrera /alexi/ EDUARDO PALOMARES MD STAFF PATHOLOGIST Signed: 07/06/2024 10:40 EDUARDO PALOMARES [facility] Jun 22, 2024 01:15 PM LR MICROBIOLOGY RE PORT: Reporting Lab: [facility] [CLIA# [id number]] [place] [address] Accession [UID]: [id number] [[id number]] Received: Jun 22, 2024@13:38 Collection sample: FLUID Collection date: Jun 22, 2024 13:15 Provider: ANGELA HOLDEN Comment on specimen: LLQ ABSCESS, RECEIVED IN ANAEROBIC TRANSPORT VIAL Test(s) ordered: GRAM STAIN.................... completed: Jun 22, 2024 15:03 CULTURE & SUSCEPTIBILITY...... completed: Jun 25, 2024 * BACTERIOLOGY FINAL REPORT => Jun 25, 2024 10:56 [facility] CODE: [id number] GRAM STAIN: DIRECT SMEAR of specimen before [...] -=--=--=--=--=--=--=-- Performing Laboratory: Bacteriology Report Performed By: [facility] [CLIA# [id number]] [place] [address] [facility] Jun 22, 2024 01:15 PM LR MICROBIOLOGY RE PORT: Reporting Lab: [facility] [CLIA# [id number]] [place] [address] Accession [UID]: [id number] [[id number]] Received: Jun 22, 2024@13:38 Collection sample: FLUID Collection date: Jun 22, 2024 13:15 Provider: ANGELA HOLDEN Comment on specimen: LLQ ABSCESS, RECEIVED IN ANAEROBIC TRANSPORT VIAL Test(s) ordered: ANAEROBIC CULTURE............. completed: Jun 28, 2024 * BACTERIOLOGY FINAL REPORT => Jun 28, 2024 10:08 TECH CODE: [id number] CULTURE RESULTS: HEAVY GROWTH MIXED ANAEROBES Comment: including the followin+ Bacteroides fragilis 4+ Bacteroides vulgatus 4+ Clostridium innocuum Beta-lactamase negative 4+ Bacteroides caccae 4+ Parvimonas micra 4+ Bacteroides uniformis 4+ Gemella morbillorum 4+ anaerobic small, Gram Positive Rods 4+ Bacteroides thetaiotaomicron Standard workup is now complete. Bacteriology Remark(s): THIS REPORT IS FINAL =--=--=--=--=--=--=--=--=--= --=--=--=--=--=--=--=--=--=- -=--=--=--=--=--=--=-- Performing Laboratory: Bacteriology Report Performed By: [facility] [CLIA# [id number]] [place] [address] [facility] Jun 21, 2024 06:12 PM LR MICROBIOLOGY RE PORT: Reporting Lab: [facility] [CLIA# [id number]] [place] [address] Accession [UID]: [id number] [[id number]] Received: Jun 21, 2024@18:12 Collection sample: BLOOD [...] -=--=--=--=--=--=--=-- Performing Laboratory: Bacteriology Report Performed By: [facility] [CLIA# [id number]] [place] [address] [facility] Jun 21, 2024 06:11 PM LR MICROBIOLOGY RE PORT: Reporting Lab: [facility] [CLIA# [id number]] [place] [address] Accession [UID]: [id number] [[id number]] Received: Jun 21, 2024@18:11 Collection sample: BLOOD [...] -=--=--=--=--=--=--=-- Performing Laboratory: Bacteriology Report Performed By: [facility] [CLIA# [id number]] [place] [address] [facility] Jun 08, 2024 11:00 AM LR MICROBIOLOGY RE PORT: Reporting Lab: [facility] [CLIA# [id number]] [place] [address] Accession [UID]: [id number] [[id number]] Received: Jun 08, 2024@11:00 Collection sample: URINE Collection date: Jun 08, 2024 11:00 Provider: MARYBETH POWELL Comment on specimen: urine Test(s) ordered: CULTURE & SUSCEPTIBILITY...... completed: Jun 09, 2024 * BACTERIOLOGY FINAL REPORT => Jun 09, 2024 19:12 TECH CODE: [id number] CULTURE RESULTS: ESCHERICHIA COLI - Quantity: >100,000 [...] -=--=--=--=--=--=--=-- Performing Laboratory: Bacteriology Report Performed By: [facility] [CLIA# [id number]] [place] [address] [facility]
--- OUTSIDE RECORDS SUMMARY | 2024-07-16 07:41 | XMS_ITS ---
Author Name [facility] [place] [facility] [place] Address [address] [place] [address] Care Team Providers Care Educational Technology Coordinator Name Role Phone JATINDER CABRERA Primary Care [...] PART A Sep 29, 2016 PART A [id number] [phone] JUDY WEAVER PATIENT Selected Encounter This section includes the information on record at [place] for the Encounter. 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 Date/Time Primary/Secondary Diagnosis Diagnosis Name Provider Source Jul 04, 2024 07:34 AM PRIMARY Spiritual or temple counseling PRABHJOT HELTON [facility] Plan of Treatment: Future Appointments (+ 6 months) and Future Tests (+/- 45 days) The Plan of Treatment section includes future care activities for the [facility] [place] [facility] This section includes future appointments and future orders which are active, pending or scheduled. Future Appointments This section includes appointments that were scheduled to occur 6 months from the date of the Encounter, up to a maximum of 20 appointments. The data comes from all [facility] facilities. Appointment Date/Time Appointment Type Appointme nt Facility Name Jul 13, 2024 08:15 AM AMBULATORY - NONE [facility] Active, Pending, and Scheduled Orders [...] comes from all [facility]. Test Date/Time Test Type Test Details Facility Name May 28, 2024 12:00 AM Laboratory - Blood Bank Order TYPE & SCREEN - LAB BLOOD SP [facility] Jun 08, 2024 09:57 AM Laboratory - Chemi stry Order URINALYSIS URINE WC ONCE [facility] Jun 12, 2024 12:00 AM Laboratory - Chemi stry Order BNP PLASMA SP ONCE [facility] Jun 21, 2024 05:45 PM Laboratory - Blood Bank Order TYPE & SCREEN - LAB BLOOD [facility] Jul 03, 2024 12:00 AM Laboratory - Blood Bank Order TYPE & SCREEN - LAB BLOOD [facility] Jul 16, 2024 12:00 AM Laboratory - Chemi stry Order CBC BLOOD SP ONCE [facility] Jul 17, 2024 12:00 AM Laboratory - Chemi stry Order BASIC METABOLIC PANEL+MG PLASMA SP ONCE [facility] Lab Results: +/- 30 [...] Range Comment Jul 10, 2024 07:16 AM [facility] PHOSPHORUS Specimen Type: PLASMA No comment entered. Ordering Provider: JUANCARLOS ECHOLS Report Released Date/Time: Jul 09, 2024 12:23 PM Reporting Lab: [facility] [address] Performing Lab: [facility] [address] PHOSPHORUS 3.0 mg/dL 2.3-4.3 Jul 10, 2024 07:16 AM [facility] BASIC METABOLIC PANEL+MG Specimen Type: PLASMA No comment entered. Ordering Provider: JUANCARLOS ECHOLS Report Released Date/Time: Jul 09, 2024 12:23 PM Reporting Lab: [facility] [address] Performing Lab: [facility] [address] CREATININE 0.7 mg/dL 0.7-1.2 UREA NITROGEN 27 mg/dL H 8-26 GLUCOSE 104 mg/dL H 70-100 SODIUM 133 mmol/L L 136-145 POTASSIUM 4.3 mmol/L 3.5-5.1 CHLORIDE 102 mmol/L 98-107 CO2 19 mmol/L L 22-29 CALCIUM 10.1 mg/dL 8.4-10.2 MAGNESIUM 1.9 mg/dL 1.6-2.6 ANION GAP 12 mmol/L 5-15 .CREAT EGFR(CKD-EPI) >90 >60 Jul 10, 2024 07:15 AM [facility] CBC Specimen Type: BLOOD No comment entered. Ordering Provider: JUANCARLOS ECHOLS S Report Released Date/Time: Jul 09, 2024 12:23 PM Reporting Lab: [facility] [address] Performing Lab: [facility] [address] WBC 18.8 H 4.0-11.0 RBC 5.08 4.60-6.20 HGB 15.9 g/dL 13.5-17.9 HCT 46.8 41.0-54.0 MCV 92.1 fL 80.0-100.0 MCH 31.3 pg 27.0-33.0 MCHC 34.0 g/dL 32.0-37.5 PLT 479 H 150-400 MPV 10.2 fL 9.1-13.0 RDW 13.7 11.5-14.5 Jul 09, 2024 07:08 AM [facility] CBC Specimen Type: BLOOD No comment entered. Ordering Provider: QUYNH WEISS AV Report Released Date/Time: Jul 08, 2024 06:18 PM Reporting Lab: [facility] [address] Performing Lab: [facility] [address] WBC 15.3 H 4.0-11.0 RBC 4.91 4.60-6.20 HGB 15.1 g/dL 13.5-17.9 HCT 45.7 41.0-54.0 MCV 93.1 fL 80.0-100.0 MCH 30.8 pg 27.0-33.0 MCHC 33.0 g/dL 32.0-37.5 PLT 443 H 150-400 MPV 10.0 fL 9.1-13.0 RDW 13.5 11.5-14.5 Jul 08, 2024 10:50 AM [facility] URINALYSIS Specimen Type: URINE No comment entered. Ordering Provider: KATELYNN PERSON Report Released Date/Time: Jul 08, 2024 08:41 AM Reporting Lab: [facility] [address] Performing Lab: [facility] [address] URINE COLOR YELLOW SPECIFIC GRAVITY >1.050 H [...] NEGATIVE NEGATIVE Jul 08, 2024 09:54 AM [facility] CBC Specimen Type: BLOOD Comment: Specimen received in Lab at: 0952 Ordering Provider: JUANCARLOS ECHOLS Report Released Date/Time: Jul 07, 2024 04:49 PM Reporting Lab: [facility] [address] Performing Lab: [facility] [address] WBC 17.5 H 4.0-11.0 RBC 4.88 4.60-6.20 HGB 14.9 g/dL 13.5-17.9 HCT 45.7 41.0-54.0 MCV 93.6 fL 80.0-100.0 MCH 30.5 pg 27.0-33.0 MCHC 32.6 g/dL 32.0-37.5 PLT 472 H 150-400 MPV 10.2 fL 9.1-13.0 RDW 13.7 11.5-14.5 Jul 08, 2024 09:54 AM [facility] PHOSPHORUS Specimen Type: PLASMA Comment: Specimen received in Lab at: 0952 Ordering Provider: JUANCARLOS ECHOLS Report Released Date/Time: Jul 07, 2024 04:49 PM Reporting Lab: [facility] [address] Performing Lab: [facility] [address] PHOSPHORUS 2.6 mg/dL 2.3-4.3 Jul 08, 2024 09:54 AM [facility] BASIC METABOLIC PANEL+MG Specimen Type: PLASMA Comment: Specimen received in Lab at: 0952 Ordering Provider: JUANCARLOS ECHOLS Report Released Date/Time: Jul 07, 2024 04:49 PM Reporting Lab: [facility] [address] Performing Lab: [facility] [address] CREATININE 0.9 mg/dL 0.7-1.2 UREA NITROGEN 26 mg/dL 8-26 GLUCOSE 128 mg/dL H 70-100 SODIUM 134 mmol/L L 136-145 POTASSIUM 3.4 mmol/L L 3.5-5.1 CHLORIDE 100 mmol/L 98-107 CO2 24 mmol/L 22-29 CALCIUM 9.8 mg/dL 8.4-10.2 MAGNESIUM 1.8 mg/dL 1.6-2.6 ANION GAP 10 mmol/L 5-15 .CREAT EGFR(CKD-EPI) >90 >60 Jul 07, 2024 02:00 PM [facility] C DIFF PANEL Specimen Type: FECES No comment entered. Ordering Provider: JEVON ZAZUETA Report Released Date/Time: Jul 07, 2024 12:26 PM Reporting Lab: [facility] [address] Performing Lab: [facility] [address] C DIFF TOX B GENE PCR NEGATIVE Negative Jul 07, 2024 07:41 AM [facility] PHOSPHORUS Specimen Type: PLASMA No comment entered. Ordering Provider: JEVON ZAZUETA Report Released Date/Time: Jul 06, 2024 03:44 PM Reporting Lab: [facility] [address] Performing Lab: [facility] [address] PHOSPHORUS 3.1 mg/dL 2.3-4.3 Jul 07, 2024 07:41 AM [facility] BASIC METABOLIC PANEL+MG Specimen Type: PLASMA No comment entered. Ordering Provider: JEVON ZAZUETA Report Released Date/Time: Jul 06, 2024 03:44 PM Reporting Lab: [facility] [address] Performing Lab: [facility] [address] CREATININE 0.9 mg/dL 0.7-1.2 UREA NITROGEN 20 mg/dL 8-26 GLUCOSE 157 mg/dL H 70-100 SODIUM 136 mmol/L 136-145 POTASSIUM 3.7 mmol/L 3.5-5.1 CHLORIDE 102 mmol/L 98-107 CO2 21 mmol/L L 22-29 CALCIUM 9.8 mg/dL 8.4-10.2 MAGNESIUM 1.9 mg/dL 1.6-2.6 ANION GAP 13 mmol/L 5-15 .CREAT EGFR(CKD-EPI) >90 >60 Jul 07, 2024 07:40 AM [facility] CBC Specimen Type: BLOOD No comment entered. Ordering Provider: JEVON ZAZUETA Report Released Date/Time: Jul 06, 2024 03:44 PM Reporting Lab: [facility] [address] Performing Lab: [facility] [address] WBC 21.2 H 4.0-11.0 RBC 5.09 4.60-6.20 HGB 15.9 g/dL 13.5-17.9 HCT 48.3 41.0-54.0 MCV 94.9 fL 80.0-100.0 MCH 31.2 pg 27.0-33.0 MCHC 32.9 g/dL 32.0-37.5 PLT 500 H 150-400 MPV 10.3 fL 9.1-13.0 RDW 13.6 11.5-14.5 Jul 06, 2024 07:21 AM [facility] CBC Specimen Type: BLOOD No comment entered. Ordering Provider: JEVON ZAZUETA Report Released Date/Time: Jul 05, 2024 01:22 PM Reporting Lab: [facility] [address] Performing Lab: [facility] [address] WBC 18.0 H 4.0-11.0 RBC 4.83 4.60-6.20 HGB 14.6 g/dL 13.5-17.9 HCT 45.5 41.0-54.0 MCV 94.2 fL 80.0-100.0 MCH 30.2 pg 27.0-33.0 MCHC 32.1 g/dL 32.0-37.5 PLT 368 150-400 MPV 10.4 fL 9.1-13.0 RDW 13.6 11.5-14.5 Jul 06, 2024 07:21 AM [facility] PHOSPHORUS Specimen Type: PLASMA No comment entered. Ordering Provider: JEVON ZAZUETA Report Released Date/Time: Jul 05, 2024 01:22 PM Reporting Lab: [facility] [address] Performing Lab: [facility] [address] PHOSPHORUS 3.6 mg/dL 2.3-4.3 Jul 06, 2024 07:21 AM [facility] BASIC METABOLIC PANEL+MG Specimen Type: PLASMA No comment entered. Ordering Provider: JEVON ZAZUETA Report Released Date/Time: Jul 05, 2024 01:22 PM Reporting Lab: [facility] [address] Performing Lab: [facility] [address] CREATININE 0.7 mg/dL 0.7-1.2 UREA NITROGEN 12 mg/dL 8-26 GLUCOSE 108 mg/dL H 70-100 SODIUM 138 mmol/L 136-145 POTASSIUM 3.4 mmol/L L 3.5-5.1 CHLORIDE 104 mmol/L 98-107 CO2 20 mmol/L L 22-29 CALCIUM 9.3 mg/dL 8.4-10.2 MAGNESIUM 1.9 mg/dL 1.6-2.6 ANION GAP 14 mmol/L 5-15 .CREAT EGFR(CKD-EPI) >90 >60 Jul 05, 2024 07:17 AM [facility] MAGNESIUM Specimen Type: PLASMA No comment entered. Ordering Provider: JUANCARLOS ECHOLS Report Released Date/Time: Jul 04, 2024 09:39 AM Reporting Lab: [facility] [address] Performing Lab: [facility] [address] MAGNESIUM 2.0 mg/dL 1.6-2.6 Jul 05, 2024 07:17 AM [facility] PHOSPHORUS Specimen Type: PLASMA No comment entered. Ordering Provider: JUANCARLOS ECHOLS S Report Released Date/Time: Jul 04, 2024 09:39 AM Reporting Lab: [facility] [address] Performing Lab: [facility] [address] PHOSPHORUS 2.0 mg/dL L 2.3-4.3 Jul 05, 2024 07:17 AM [facility] BASIC METABOLIC PANEL+MG Specimen Type: PLASMA No comment entered. Ordering Provider: JUANCARLOS ECHOLS S Report Released Date/Time: Jul 04, 2024 09:39 AM Reporting Lab: [facility] [address] Performing Lab: [facility] [address] CREATININE 0.7 mg/dL 0.7-1.2 UREA NITROGEN 12 mg/dL 8-26 GLUCOSE 84 mg/dL 70-100 SODIUM 135 mmol/L L 136-145 POTASSIUM 3.8 mmol/L 3.5-5.1 CHLORIDE 104 mmol/L 98-107 CO2 24 mmol/L 22-29 CALCIUM 9.3 mg/dL 8.4-10.2 MAGNESIUM 2.0 mg/dL 1.6-2.6 ANION GAP 7 mmol/L 5-15 .CREAT EGFR(CKD-EPI) >90 >60 Jul 05, 2024 07:16 AM [facility] CBC Specimen Type: BLOOD No comment entered. Ordering Provider: JUANCARLOS ECHOLS S Report Released Date/Time: Jul 04, 2024 09:39 AM Reporting Lab: [facility] [address] Performing Lab: [facility] [address] WBC 18.3 H 4.0-11.0 RBC 4.49 L 4.60-6.20 HGB 14.1 g/dL 13.5-17.9 HCT 43.4 41.0-54.0 MCV 96.7 fL 80.0-100.0 MCH 31.4 pg 27.0-33.0 MCHC 32.5 g/dL 32.0-37.5 PLT 317 150-400 MPV 10.0 fL 9.1-13.0 RDW 13.9 11.5-14.5 Jul 04, 2024 07:17 AM [facility] BASIC METABOLIC PANEL+MG Specimen Type: PLASMA No comment entered. Ordering Provider: GABINO CAMERON Report Released Date/Time: Jul 03, 2024 06:31 PM Reporting Lab: [facility] [address] Performing Lab: [facility] [address] CREATININE 0.7 mg/dL 0.7-1.2 UREA NITROGEN 16 mg/dL 8-26 GLUCOSE 129 mg/dL H 70-100 SODIUM 137 mmol/L 136-145 POTASSIUM 3.7 mmol/L 3.5-5.1 CHLORIDE 107 mmol/L 98-107 CO2 22 mmol/L 22-29 CALCIUM 9.0 mg/dL 8.4-10.2 MAGNESIUM 1.9 mg/dL 1.6-2.6 ANION GAP 8 mmol/L 5-15 .CREAT EGFR(CKD-EPI) >90 >60 Jul 04, 2024 07:17 AM [facility] PHOSPHORUS Specimen Type: PLASMA No comment entered. Ordering Provider: GABINO CAMERON Report Released Date/Time: Jul 03, 2024 06:31 PM Reporting Lab: [facility] [address] Performing Lab: [facility] [address] PHOSPHORUS 2.8 mg/dL 2.3-4.3 Jul 04, 2024 07:16 AM [facility] CBC Specimen Type: BLOOD No comment entered. Ordering Provider: GABINO CAMERON Report Released Date/Time: Jul 03, 2024 06:31 PM Reporting Lab: [facility] [address] Performing Lab: [facility] [address] WBC 20.6 H 4.0-11.0 RBC 4.63 4.60-6.20 HGB 14.2 g/dL 13.5-17.9 HCT 43.4 41.0-54.0 MCV 93.7 fL 80.0-100.0 MCH 30.7 pg 27.0-33.0 MCHC 32.7 g/dL 32.0-37.5 PLT 329 150-400 MPV 10.4 fL 9.1-13.0 RDW 13.8 11.5-14.5 Jul 04, 2024 07:16 AM [facility] CBC & DIFF Specimen Type: BLOOD Comment: Manual Differential Performed Ordering Provider: GABINO CAMERON Report Released Date/Time: Jul 03, 2024 06:31 PM Reporting Lab: [facility] [address] Performing Lab: [facility] [address] WBC 20.6 H 4.0-11.0 RBC 4.63 4.60-6.20 [...] MORPHOLOGY PRESENT Jul 04, 2024 07:15 AM [facility] BNP Specimen Type: PLASMA No comment entered. Ordering Provider: GABINO CAMERON Report Released Date/Time: Jul 03, 2024 06:31 PM Reporting Lab: [facility] [address] Performing Lab: [facility] [address] BNP 292 pg/mL H <99 Jul 03, 2024 10:32 PM [facility] FINGERSTICK GLUCOSE Specimen Type: BLOOD Comment: Save Result Nurse Notified Ordering Provider: KATELYNN PERSON Report Released Date/Time: Jul 03, 2024 10:50 PM Reporting Lab: [facility] [address] Performing Lab: [facility] [address] FINGERSTICK GLUCOSE 126 mg/dL H 70-100 Jul 03, 2024 05:33 PM [facility] FINGERSTICK GLUCOSE Specimen Type: BLOOD Comment: Save Result Nurse Notified Ordering Provider: KATELYNN PERSON Report Released Date/Time: Jul 03, 2024 05:46 PM Reporting Lab: [facility] [address] Performing Lab: [facility] [address] FINGERSTICK GLUCOSE 141 mg/dL H 70-100 Jul 03, 2024 02:31 PM [facility] POC ABG/ELECTROLYTES Specimen Type: ARTERIAL BLOOD Comment: FIO2 = 97% Patient Temp: 36.0 C Sample Type = ARTERIAL Ordering Provider: MAZIN ARREDONDO Report Released Date/Time: Jul 03, 2024 01:48 PM Reporting Lab: [facility] [address] Performing Lab: [facility] [address] POC PH 7.387 7.35-7.45 POC PCO2 34.4 [...] H 80.0-105.0 Jul 03, 2024 01:05 PM [facility] POC ABG/ELECTROLYTES Specimen Type: ARTERIAL BLOOD Comment: FIO2 = 53% Patient Temp: 36.2 C Sample Type = ARTERIAL Ordering Provider: MAZIN ARREDONDO Report Released Date/Time: Jul 03, 2024 01:48 PM Reporting Lab: [facility] [address] Performing Lab: [facility] [address] POC PH 7.280 L 7.35-7.45 POC PCO2 [...] mm[Hg] 80.0-105.0 Jul 03, 2024 06:15 AM [facility] URINALYSIS Specimen Type: URINE No comment entered. Ordering Provider: MARYBETH POWELL Report Released Date/Time: Jun 12, 2024 04:01 PM Reporting Lab: [facility] [address] Performing Lab: [facility] [address] URINE COLOR YELLOW SPECIFIC GRAVITY 1.031 1.003-1.03 [...] 250 NEGATIVE Jul 03, 2024 06:13 AM [facility] CBC Specimen Type: BLOOD No comment entered. Ordering Provider: MARYBETH POWELL Report Released Date/Time: Jun 12, 2024 03:59 PM Reporting Lab: [facility] [address] Performing Lab: [facility] [address] WBC 15.8 H 4.0-11.0 RBC 5.11 4.60-6.20 HGB 16.1 g/dL 13.5-17.9 HCT 49.1 41.0-54.0 MCV 96.1 fL 80.0-100.0 MCH 31.5 pg 27.0-33.0 MCHC 32.8 g/dL 32.0-37.5 PLT 357 150-400 MPV 9.8 fL 9.1-13.0 RDW 13.7 11.5-14.5 Jun 24, 2024 09:50 AM [facility] BASIC METABOLIC PANEL+MG Specimen Type: PLASMA Comment: Specimen received in Lab at: 0948 Ordering Provider: JEVON ZAZUETA Report Released Date/Time: Jun 23, 2024 06:07 PM Reporting Lab: [facility] [address] Performing Lab: [facility] [address] CREATININE 0.8 mg/dL 0.7-1.2 UREA NITROGEN 13 mg/dL 8-26 GLUCOSE 135 mg/dL H 70-100 SODIUM 135 mmol/L L 136-145 POTASSIUM 3.6 mmol/L 3.5-5.1 CHLORIDE 103 mmol/L 98-107 CO2 24 mmol/L 22-29 CALCIUM 9.2 mg/dL 8.4-10.2 MAGNESIUM 1.9 mg/dL 1.6-2.6 ANION GAP 8 mmol/L 5-15 .CREAT EGFR(CKD-EPI) >90 >60 Jun 24, 2024 09:50 AM [facility] CBC Specimen Type: BLOOD Comment: Specimen received in Lab at: 0948 Ordering Provider: JEVON ZAZUETA Report Released Date/Time: Jun 23, 2024 06:07 PM Reporting Lab: [facility] [address] Performing Lab: [facility] [address] WBC 15.5 H 4.0-11.0 RBC 4.93 4.60-6.20 HGB 15.2 g/dL 13.5-17.9 HCT 46.5 41.0-54.0 MCV 94.3 fL 80.0-100.0 MCH 30.8 pg 27.0-33.0 MCHC 32.7 g/dL 32.0-37.5 PLT 223 150-400 MPV 11.4 fL 9.1-13.0 RDW 13.9 11.5-14.5 Jun 23, 2024 07:52 AM [facility] COMPREHENSIVE METABOLIC PANEL+MG Specimen Type: PLASMA No comment entered. Ordering Provider: JEVON ZAZUETA Report Released Date/Time: Jun 22, 2024 05:51 PM Reporting Lab: [facility] [address] Performing Lab: [facility] [address] CREATININE 0.7 mg/dL 0.7-1.2 UREA NITROGEN 16 [...] >90 >60 Jun 23, 2024 07:52 AM [facility] CBC & DIFF Specimen Type: BLOOD Comment: Automated Differential Performed Ordering Provider: JEVON ZAZUETA Report Released Date/Time: Jun 22, 2024 05:51 PM Reporting Lab: [facility] [address] Performing Lab: [facility] [address] WBC 14.9 H 4.0-11.0 RBC 5.09 4.60-6.20 [...] 0.1 0.0-0.1 Jun 22, 2024 06:10 PM [facility] CBC Specimen Type: BLOOD No comment entered. Ordering Provider: JEVON ZAZUETA Report Released Date/Time: Jun 22, 2024 05:51 PM Reporting Lab: [facility] [address] Performing Lab: [facility] [address] WBC 16.9 H 4.0-11.0 RBC 5.28 4.60-6.20 HGB 16.9 g/dL 13.5-17.9 HCT 50.4 41.0-54.0 MCV 95.5 fL 80.0-100.0 MCH 32.0 pg 27.0-33.0 MCHC 33.5 g/dL 32.0-37.5 PLT 223 150-400 MPV 10.9 fL 9.1-13.0 RDW 14.0 11.5-14.5 Jun 22, 2024 06:10 PM [facility] COMPREHENSIVE METABOLIC PANEL+MG Specimen Type: PLASMA No comment entered. Ordering Provider: JEVON ZAZUETA Report Released Date/Time: Jun 22, 2024 05:51 PM Reporting Lab: [facility] [address] Performing Lab: [facility] [address] CREATININE 0.7 mg/dL 0.7-1.2 UREA NITROGEN 17 [...] >90 >60 Jun 21, 2024 06:48 PM [facility] URINALYSIS Specimen Type: URINE No comment entered. Ordering Provider: DELIA MARTINEZ Report Released Date/Time: Jun 21, 2024 05:45 PM Reporting Lab: [facility] [address] Performing Lab: [facility] [address] URINE COLOR YELLOW SPECIFIC GRAVITY 1.041 H [...] 500 NEGATIVE Jun 21, 2024 05:34 PM [facility] POC CREATININE Specimen Type: BLOOD No comment entered. Ordering Provider: DELIA MARTINEZ Report Released Date/Time: Jun 21, 2024 06:07 PM Reporting Lab: [facility] [address] Performing Lab: [facility] [address] POC CREATININE 1.1 mg/dL 0.6-1.3 Jun 21, 2024 05:30 PM [facility] POC ABG/LACTATE Specimen Type: VENOUS BLOOD No comment entered. Ordering Provider: DELIA MARTINEZ Report Released Date/Time: Jun 21, 2024 06:07 PM Reporting Lab: [facility] [address] Performing Lab: [facility] [address] POC PH 7.470 H 7.31-7.41 POC PCO2 31.2 mm[Hg] L 41.00-51 .0 0 POC PO2 46 mm[Hg] H 35.0-40.0 POC TCO2 24 mmol/L 24.0-29.0 POC HCO3 22.7 mmol/L L 23.0-28.0 POC BE ECT -1 mmol/L POC SO2 85 H 70-75 POC LACTATE 1.85 mmol/L 0.90-1.70 Jun 21, 2024 05:24 PM [facility] PROTHROMBIN TIME/INR Specimen Type: PLASMA No comment entered. Ordering Provider: DELIA MARTINEZ Report Released Date/Time: Jun 21, 2024 05:30 PM Reporting Lab: [facility] [address] Performing Lab: [facility] [address] .INR 1.2 H 0.8-1.1 .PT 13.9 s H 9.4-12.5 Jun 21, 2024 05:24 PM [facility] LIPASE Specimen Type: PLASMA No comment entered. Ordering Provider: DELIA MARTINEZ Report Released Date/Time: Jun 21, 2024 05:30 PM Reporting Lab: [facility] [address] Performing Lab: [facility] [address] LIPASE 32 U/L <60 Jun 21, 2024 05:24 PM [facility] EXTRA GOLD GEL TUBE Specimen Type: SERUM No comment entered. Ordering Provider: DELIA MARTINEZ Report Released Date/Time: Jun 21, 2024 05:41 PM Reporting Lab: [facility] [address] Performing Lab: [facility] [address] EXTRA GOLD GEL TUBE RECEIVED Jun 21, 2024 05:24 PM [facility] COMPREHENSIVE METABOLIC PANEL+MG Specimen Type: PLASMA No comment entered. Ordering Provider: DELIA MARTINEZ Report Released Date/Time: Jun 21, 2024 05:30 PM Reporting Lab: [facility] [address] Performing Lab: [facility] [address] CREATININE 0.9 mg/dL 0.7-1.2 UREA NITROGEN 29 [...] mg/dL <0.5 Jun 21, 2024 05:24 PM [facility] CBC & DIFF Specimen Type: BLOOD Comment: Manual Differential Performed Ordering Provider: DELIA MARTINEZ Report Released Date/Time: Jun 21, 2024 05:30 PM Reporting Lab: [facility] [address] Performing Lab: [facility] [address] WBC 21.3 H 4.0-11.0 RBC 5.48 4.60-6.20 [...] MORPHOLOGY PRESENT Jun 08, 2024 10:59 AM [facility] PROTHROMBIN TIME/INR Specimen Type: PLASMA No comment entered. Ordering Provider: MARYBETH POWELL Report Released Date/Time: May 28, 2024 09:02 AM Reporting Lab: [facility] [address] Performing Lab: [facility] [address] .INR 1.0 0.8-1.1 .PT 11.8 s 9.4-12.5 Jun 08, 2024 10:59 AM [facility] CBC Specimen Type: BLOOD No comment entered. Ordering Provider: MARYBETH POWELL Report Released Date/Time: May 28, 2024 09:02 AM Reporting Lab: [facility] [address] Performing Lab: [facility] [address] WBC 16.1 H 4.0-11.0 RBC 5.02 4.60-6.20 HGB 16.0 g/dL 13.5-17.9 HCT 47.1 41.0-54.0 MCV 93.8 fL 80.0-100.0 MCH 31.9 pg 27.0-33.0 MCHC 34.0 g/dL 32.0-37.5 PLT 228 150-400 MPV 10.3 fL 9.1-13.0 RDW 14.6 H 11.5-14.5 Jun 08, 2024 10:59 AM [facility] HEMOGLOBIN A1C Specimen Type: BLOOD Comment: [...] 09:02 AM Reporting Lab: [facility] [address] Performing Lab: [facility] [address] HEMOGLOBIN A1C 4.9 4.0-6.0 Jun 08, 2024 10:59 AM [facility] BASIC METABOLIC PANEL+MG Specimen Type: PLASMA No comment entered. Ordering Provider: MARYBETH POWELL Report Released Date/Time: May 28, 2024 09:02 AM Reporting Lab: [facility] [address] Performing Lab: [facility] [address] CREATININE 0.9 mg/dL 0.7-1.2 UREA NITROGEN 15 [...] Source Jul 03, 2024 11:26 PM 3 [facility] Jul 03, 2024 10:33 PM 5 [facility] Jul 03, 2024 08:26 PM 3 [facility] Jul 03, 2024 07:58 PM 5 [facility] Jul 03, 2024 07:25 PM 3 [facility] Social History: Smoking Status [...] 15, 2024 08:30 AM VA-TOBACCO FORMER USER [facility] Tobacco Use History This section includes a history of the smoking, or tobacco-related health factors, that were collected on or before the date of the Encounter. The data comes from the [place] facility where the En[place] took place. Date/Time Smoking Status/Tobacco Use Comment F acility May 15, 2024 08:30 AM NE-TOBACCO QUIT 15 YRS OR MORE [facility] May 06, 2023 11:30 AM VA-TOBACCO FORMER USER [facility] May 06, 2023 11:30 AM VA-TOBACCO [...] VIEWS PA A ND LAT: FLACA WEAVER [id number] -[id number] M Exm Date: JUL 08, 2024@10:09 Req Phys: KATELYNN PERSON Pat Loc: 2KG07-08-2024@11:49 Img Loc: MAIN X-RAY Service: [place] [address] (Case 24 COMPLETE) CHEST 2 VIEWS PA AND LAT (RAD Detailed) CPT:84573 Reason for Study: Uptrending WBC, POD 5 Clinical History: [place] IS NOT under investigation for COVID-19 or is COVID-19 negative POD 5, work up for uptrending wbc Responsible provider name and phone number to notify for critical findings if other than user placing the order and pager listed below: User placing orders pager: [phone] Person LAST CREATININE 0.9 (07/07/24) Report Status: Verified Date Reported: JUL 08, 2024 Date Verified: JUL 08, 2024 Play Reader E-Sig: Report: CHEST 2 VIEWS PA AND LAT HISTORY: Uptrending WBC, POD 5 COMPARISON: CT chest 11/12/2022 TECHNIQUE: Frontal and lateral views of the chest, submitted to the [place] Teleradiology Program (NTP) for interpretation. FINDINGS: Lungs: Clear. No focal consolidation. No pulmonary edema. Pleura: No pleural effusion or pneumothorax. Mediastinum: Normal size and contour. Bones: Unremarkable. Impression: No acute cardiopulmonary disease. READING PHYSICIAN: Sarbjit Vaughn M.D. -[phone] 07/08/2024 12:46 EST [facility] National Teleradiology Program [phone] (For Medical Practitioner Use Only) Attention Patients / Veterans: If you have questions or concerns about these test results, please contact your ordering provider or primary care team. Primary Interpreting Staff: RADIOLOGY,OUTSIDE SERVICE, Staff Physician / RADIOLOGY,OUTSIDE SERVICE [facility] Jul 08, 2024 10:[address] (AP) ABDOMEN/PE LVIS W CONTRAST: FLACA WEAVER [id number] -1950 M Exm Date: JUL 08, 2024@10:00 Req Phys: KATELYNN PERSON Loc: 2KG/07-08-2024@12:07 [facility] [place] Loc: CT IMAGING Service: [place] [address] (Case [id number] COMPLETE) CT (AP) ABDOMEN/PELVIS W CONTRAST(CT Detailed) CPT:81144 Contrast Media : Non-ionic Iodinated Reason for [...] PLASMA .CREAT EGFR(CKD-E >90 Ref: >=60 Allergies: ([place] only) TERAZOSIN (Mar 13, 2015) Report Status: Verified Date Reported: JUL 08, 2024 Date Verified: JUL 08, 2024 Play Reader E-Sig: Report: CT (AP) ABDOMEN/PELVIS W CONTRAST HISTORY: POD 5, Uptrending WBC - Concern for Abscess/other infection COMPARISON: June 21, 2024 TECHNIQUE: CT abdomen and pelvis was performed after intravenous contrast. Axial, sagittal and coronal reformatted images. The [place] and images were sent to the [place] Teleradiology Program (NTP) for interpretation. Number [...] as noted above READING PHYSICIAN: Celestino Blanc -[phone] 07/08/2024 13:04 [facility] Telerad[facility] [phone] (For Medical Practitioner Use Only) Attention Patients / Veterans: If you have questions or concerns about these test results, please contact your ordering provider or primary care team. Primary Interpreting Staff: RADIOLOGY,OUTSIDE SERVICE, Staff Physician / RADIOLOGY,OUTSIDE SERVICE [facility] Jun 22, 2024 11:49 AM ABSCESS DRAIN PLAC EMENT PERITONEAL (P): FLACA WEAVER [id number] -1950 M Exm Date: JUN 22, 2024@11:49 Req Phys: ANGELA HOLDEN Loc: [facility]06-22-2024@17:14 Img Loc: INTERVENTIONAL RADIOLOGY Service: [place] [address] (Case [id number] COMPLETE) IR PERITONEAL/RETROPERITONEAL PER(ANI Detailed) CPT:59736 Reason for Study: diverticulitis with abscess (Case 3570 COMPLETE) IR MOD SEDATION 10-22 MIN (ANI Detailed) CPT:82750 Clinical History: IS NOT under investigation for COVID-19 or is COVID-19 negative 73 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 please place abscess drain. Contact number for responsible provider who can be reached for any questions or notifications of critical findings: [phone] n/a LAST CREATININE 0.9 (06/21/24) Report Status: Verified Date Reported: JUN 22, 2024 Date Verified: JUN 22, 2024 Play Reader E-Sig:/ES/LISA PENDLETON MD Report: PROCEDURES: Placement of [...] obtained. A pre-procedural Time-Out was performed per [facility] policy. The patient was placed in the supine position on the CT table. Preprocedural scan performed. The suprapubic region/lower abdominal wall was sterilely prepped and draped in the usual fashion.1% lidocaine without epinephrine was used for local anesthesia. Using real-time CT fluoroscopy, a 5 Libyan MyMusicesis catheter was advanced into the collection in the left pelvis. A wire was coiled in the collection. The tract into the collection was dilated to accommodate the 12 Libyan locking pigtail drainage catheter. There was return [...] Primary Interpreting Staff: LISA PENDLETON MD, RADIOLOGIST (Play Reader) /JRT LISA PENDLETON [facility] Jun 22, 2024 11:[address] NEEDLE PLACEMEN T (P): FLACA WEAVER [id number] -1950 M Exm Date: JUN 22, 2024@11:48 Req Phys: ANGELA HOLDEN [facility] Loc: [facility]/06-22-2024@17:14 Img Loc: CT IMAGING Service: [place] [address] (Case [id number] COMPLETE) CT SCAN FOR NEEDLE PLACEMENT (CT Detailed) CPT:38462 Reason for Study: l pelvic abscess drain Clinical History: Report Status: Verified Date Reported: JUN 22, 2024 Date Verified: JUN 22, 2024 Play Reader E-Sig:/ES/LISA PENDLETON MD Report: PROCEDURES: Placement of [...] obtained. A pre-procedural Time-Out was performed per [facility] policy. The patient was placed in the supine position on the CT table. Preprocedural scan performed. The suprapubic region/lower abdominal wall was sterilely prepped and draped in the usual fashion.1% lidocaine without epinephrine was used for local anesthesia. Using real-time CT fluoroscopy, a 5 Libyan MyMusicesis catheter was advanced into the collection in the left pelvis. A wire was coiled in the collection. The tract into the collection was dilated to accommodate the 12 Libyan locking pigtail drainage catheter. There was return [...] Primary Interpreting Staff: LISA PENDLETON MD, RADIOLOGIST (Play Reader) /JRT LISA PENDLETON [facility] Jun 21, 2024 06:[address] (AP) ABDOMEN/PE LVIS (P): FLACA WEAVER [id number] -1950 M Exm Date: JUN 21, 2024@18:09 Req Phys: DELIA MARTINEZ Loc: [facility] EM[facility]Y DEPT WALK-IN (Re Img Loc: CT IMAGING Service: [place] [address] (Case [id number] COMPLETE) CT (AP) ABDOMEN/PELVIS W CONTRAST(CT Detailed) CPT:12011 Contrast Media : Non-ionic Iodinated Reason for [...] PLASMA .CREAT EGFR(CKD-E >90 Ref: >=60 Allergies: ([place] only) TERAZOSIN (Mar 13, 2015) Defer to [...] 21, 2024 Date Verified: JUN 21, 2024 Play Reader E-Sig:/ES/CARLOS A CUNNINGHAM DO Report: EXAMINATION: CT [...] readback verification. Primary Interpreting Staff: CARLOS A CUNNINHGAM DO, RADIOLOGIST (Play Reader) /CARLOS A ROWELL [facility] Pathology Reports: +/- 30 [...] COSIGNER: URGENCY: STATUS: COMPLETED $APHDR Reporting Lab: [facility] [CLIA# [id number]] [place] [address] - - - - - - - [...] - PATHOLOGY REPORT Accession No. [id number] - - - - - - - [...] - PATHOLOGY REPORT Accession No. [id number] - - - - - - - [...] Second circumferential surgical margin, en face; E-F: Office Support Associate diverticula; G: Office Support Associate section of mesentery; H: Random technical services representative section of additional adipose tissue [...] tissue ring, bisected transversely. SS. (D[facility]: Microscopic examination performed. DIAGNOSIS: 1. Colon, sigmoid, sigmoidectomy-- - Diverticulosis with perforation and focal abscess formation 2. Colon, anastomotic rings, excision-- - Viable colonic mucosa without diagnostic abnormality /alexi/ EDUARDO PALOMARES MD STAFF PATHOLOGIST Signed Jul 06, 2024@10:40 Performing Laboratory: Surgical Pathology Report Performed By: [facility] [CLIA# [id number]] [place] [address] $FTR - - - - - - [...] - - FLACA WEAVER STANDARD FORM 515 ID:[id number] SEX:M :1950 AGE: 73 LOC:11250 ADM:Jun DX:DIVERTICULITIS PCP: Jatinder Cabrera /alexi/ EDUARDO PALOMARES MD STAFF PATHOLOGIST Signed: 07/06/2024 10:40 EDUARDO PALOMARES [facility] Jun 22, 2024 01:15 PM LR MICROBIOLOGY RE PORT: Reporting Lab: [facility] [CLIA# [id number]] [place] [address] Accession [UID]: [id number] [[id number]] Received: Jun 22, 2024@13:38 Collection sample: FLUID Collection date: Jun 22, 2024 13:15 Provider: ANGELA HOLDEN Comment on specimen: LLQ ABSCESS, RECEIVED IN ANAEROBIC TRANSPORT VIAL Test(s) ordered: GRAM STAIN.................... completed: Jun 22, 2024 15:03 CULTURE & SUSCEPTIBILITY...... completed: Jun 25, 2024 * BACTERIOLOGY FINAL REPORT => Jun 25, 2024 10:56 [facility] CODE: [id number] GRAM STAIN: DIRECT SMEAR of specimen before [...] -=--=--=--=--=--=--=-- Performing Laboratory: Bacteriology Report Performed By: [facility] [CLIA# [id number]] [place] [address] [facility] Jun 22, 2024 01:15 PM LR MICROBIOLOGY RE PORT: Reporting Lab: [facility] [CLIA# [id number]] [place] [address] Accession [UID]: [id number] [[id number]] Received: Jun 22, 2024@13:38 Collection sample: FLUID Collection date: Jun 22, 2024 13:15 Provider: ANGELA HOLDEN Comment on specimen: LLQ ABSCESS, RECEIVED IN ANAEROBIC TRANSPORT VIAL Test(s) ordered: ANAEROBIC CULTURE............. completed: Jun 28, 2024 * BACTERIOLOGY FINAL REPORT => Jun 28, 2024 10:08 TECH CODE: [id number] CULTURE RESULTS: HEAVY GROWTH MIXED ANAEROBES Comment: including the followin+ Bacteroides fragilis 4+ Bacteroides vulgatus 4+ Clostridium innocuum Beta-lactamase negative 4+ Bacteroides caccae 4+ Parvimonas micra 4+ Bacteroides uniformis 4+ Gemella morbillorum 4+ anaerobic small, Gram Positive Rods 4+ Bacteroides thetaiotaomicron Standard workup is now complete. Bacteriology Remark(s): THIS REPORT IS FINAL =--=--=--=--=--=--=--=--=--= --=--=--=--=--=--=--=--=--=- -=--=--=--=--=--=--=-- Performing Laboratory: Bacteriology Report Performed By: [facility] [CLIA# [id number]] [place] [address] [facility] Jun 21, 2024 06:12 PM LR MICROBIOLOGY RE PORT: Reporting Lab: [facility] [CLIA# [id number]] [place] [address] Accession [UID]: [id number] [[id number]] Received: Jun 21, 2024@18:12 Collection sample: BLOOD [...] -=--=--=--=--=--=--=-- Performing Laboratory: Bacteriology Report Performed By: [facility] [CLIA# [id number]] [place] [address] [facility] Jun 21, 2024 06:11 PM LR MICROBIOLOGY RE PORT: Reporting Lab: [facility] [CLIA# [id number]] [place] [address] Accession [UID]: [id number] [[id number]] Received: Jun 21, 2024@18:11 Collection sample: BLOOD [...] -=--=--=--=--=--=--=-- Performing Laboratory: Bacteriology Report Performed By: [facility] [CLIA# [id number]] [place] [address] [facility] Jun 08, 2024 11:00 AM LR MICROBIOLOGY RE PORT: Reporting Lab: [facility] [CLIA# [id number]] [place] [address] Accession [UID]: [id number] [[id number]] Received: Jun 08, 2024@11:00 Collection sample: URINE Collection date: Jun 08, 2024 11:00 Provider: MARYBETH POWELL Comment on specimen: urine Test(s) ordered: CULTURE & SUSCEPTIBILITY...... completed: Jun 09, 2024 * BACTERIOLOGY FINAL REPORT => Jun 09, 2024 19:12 TECH CODE: [id number] CULTURE RESULTS: ESCHERICHIA COLI - Quantity: >100,000 [...] -=--=--=--=--=--=--=-- Performing Laboratory: Bacteriology Report Performed By: [facility] [CLIA# [id number]] [address] [place] [address] [facility] Encounter Notes: All associated encounter notes This section contains the clinical notes associated to the Encounter. Date/Time Encounter Note(s) Provider Source Jul 03, 2024 07:33 AM PASTORAL CARE NOTE : LOCAL TITLE: BRAND ADVISOR-VISITATION NOTE STANDARD TITLE: PASTORAL CARE NOTE DATE OF NOTE: JUL 03, 2024@07:33 ENTRY DATE: JUL 04, 2024@07:33:58 AUTHOR: AGUSTO HELTON EXP COSIGNER: URGENCY: STATUS: COMPLETED Pastoral Services Note: I provided pastoral care in the room of the patient during pre-operation. I provided active listening and ministry of presence. I introduced shravan to the patient and discussed our availability. The patient thanked me for visiting. I will continue to attempt to provide follow up visits on a need basis and as I am assigned to this unit. /alexi/ AGUSTO HELTON Staff Public Relations Director Signed: 07/04/2024 07:34 AGUSTO HELTON [facility]
--- OUTSIDE RECORDS SUMMARY | 2024-07-16 07:41 | XMS_ITS ---
[place] DAILY HOSPITALIZATION DATA [facility]CS Encounter Summary Created on: July 16, 2024 MEG FLACADARCI LOBO : 1950 Sex: Male Author Name [facility] Organization [facility] Address [address] [place] [address] Care Team Providers Care Patient Support Assistant Name Role Phone JATINDER CABRERA Primary [...] PART A Sep 29, 2016 PART A [id number] [phone] JUDY WEAVER PATIENT Selected Encounter This section includes the information on record at [place] for the Encounter. Date/Time Encounter Type Encounter Description Reason Pro vider Source Jul 04, 2024 01:15 AM Inpatient Visit DAILY HOSPITALIZATION DATA ANGELA PINTO E Encounter Template Text not used by [place] [...] 2024 08:15 AM AMBULATORY - NONE [facility] Active, Pending, and Scheduled Orders [...] & SCREEN - LAB BLOOD SP [facility] Jun 08, 2024 09:57 AM Laboratory - Chemi stry Order URINALYSIS URINE WC ONCE [facility] Jun 12, 2024 12:00 AM Laboratory - Chemi stry Order BNP PLASMA SP ONCE [facility] Jun 21, 2024 05:45 PM Laboratory - Blood Bank Order TYPE & SCREEN - LAB BLOOD WC [facility] Jul 03, 2024 12:00 AM Laboratory - Blood Bank Order TYPE & SCREEN - LAB BLOOD [facility] Jul 16, 2024 12:00 AM Laboratory - Chemi stry Order CBC BLOOD SP ONCE [facility] Jul 17, 2024 12:00 AM Laboratory - Chemi stry Order BASIC METABOLIC PANEL+MG PLASMA SP ONCE [facility] Lab Results: +/- 30 days of [...] Comment Jul 10, 2024 07:16 AM [facility] PHOSPHORUS Specimen Type: PLASMA No comment entered. Ordering Provider: JUANCARLOS ECHOLS S Report Released Date/Time: Jul 09, 2024 12:23 PM Reporting Lab: [facility] [phone] Performing Lab: [facility] [address] PHOSPHORUS 3.0 mg/dL 2.3-4.3 Jul 10, 2024 07:16 AM [facility] BASIC METABOLIC PANEL+MG Specimen Type: PLASMA No comment entered. Ordering Provider: JUANCARLOS ECHOLS S Report Released Date/Time: Jul 09, 2024 12:23 PM Reporting Lab: [facility] [address] Performing Lab: [facility] [address] CREATININE 0.7 mg/dL 0.7-1.2 UREA NITROGEN 27 mg/dL H 8-26 GLUCOSE 104 mg/dL H 70-100 SODIUM 133 mmol/L L 136-145 POTASSIUM 4.3 mmol/L 3.5-5.1 CHLORIDE 102 mmol/L 98-107 CO2 19 mmol/L L 22-29 CALCIUM 10.1 mg/dL 8.4-10.2 MAGNESIUM 1.9 mg/dL 1.6-2.6 ANION GAP 12 mmol/L 5-15 .CREAT EGFR(CKD-EPI) >90 >60 Jul 10, 2024 07:15 AM [facility] CBC Specimen Type: BLOOD No comment entered. Ordering Provider: JUANCARLOS ECHOLS Report Released Date/Time: Jul 09, 2024 12:23 PM Reporting Lab: [facility] [address] Performing Lab: [facility] [address] WBC 18.8 H 4.0-11.0 RBC 5.08 4.60-6.20 HGB 15.9 g/dL 13.5-17.9 HCT 46.8 41.0-54.0 MCV 92.1 fL 80.0-100.0 MCH 31.3 pg 27.0-33.0 MCHC 34.0 g/dL 32.0-37.5 PLT 479 H 150-400 MPV 10.2 fL 9.1-13.0 RDW 13.7 11.5-14.5 Jul 09, 2024 07:08 AM [facility] CBC Specimen Type: BLOOD No comment entered. Ordering Provider: QUYNH WEISS AV Report Released Date/Time: Jul 08, 2024 06:18 PM Reporting Lab: [facility] [address] Performing Lab: [facility] [address] WBC 15.3 H 4.0-11.0 RBC 4.91 4.60-6.20 HGB 15.1 g/dL 13.5-17.9 HCT 45.7 41.0-54.0 MCV 93.1 fL 80.0-100.0 MCH 30.8 pg 27.0-33.0 MCHC 33.0 g/dL 32.0-37.5 PLT 443 H 150-400 MPV 10.0 fL 9.1-13.0 RDW 13.5 11.5-14.5 Jul 08, 2024 10:50 AM [facility] URINALYSIS Specimen Type: URINE No comment entered. Ordering Provider: KATELYNN PERSON Report Released Date/Time: Jul 08, 2024 08:41 AM Reporting Lab: [facility] [address] Performing Lab: [facility] [address] URINE COLOR YELLOW SPECIFIC GRAVITY >1.050 H [...] NEGATIVE Jul 08, 2024 09:54 AM [facility] CBC Specimen Type: BLOOD Comment: Specimen received in Lab at: 0952 Ordering Provider: JUANCARLOS ECHOLS Report Released Date/Time: Jul 07, 2024 04:49 PM Reporting Lab: [facility] [address] Performing Lab: [facility] [address] WBC 17.5 H 4.0-11.0 RBC 4.88 4.60-6.20 HGB 14.9 g/dL 13.5-17.9 HCT 45.7 41.0-54.0 MCV 93.6 fL 80.0-100.0 MCH 30.5 pg 27.0-33.0 MCHC 32.6 g/dL 32.0-37.5 PLT 472 H 150-400 MPV 10.2 fL 9.1-13.0 RDW 13.7 11.5-14.5 Jul 08, 2024 09:54 AM [facility] PHOSPHORUS Specimen Type: PLASMA Comment: Specimen received in Lab at: 0952 Ordering Provider: BALAJADIA,MAR IA S Report Released Date/Time: Jul 07, 2024 04:49 PM Reporting Lab: [facility] [address] Performing Lab: [facility] [address] PHOSPHORUS 2.6 mg/dL 2.3-4.3 Jul 08, 2024 09:54 AM [facility] BASIC METABOLIC PANEL+MG Specimen Type: PLASMA Comment: Specimen received in Lab at: 0952 Ordering Provider: JUANCARLOS ECHOLS S Report Released Date/Time: Jul 07, 2024 04:49 PM Reporting Lab: [facility] [address] Performing Lab: [facility] [address] CREATININE 0.9 mg/dL 0.7-1.2 UREA NITROGEN 26 mg/dL 8-26 GLUCOSE 128 mg/dL H 70-100 SODIUM 134 mmol/L L 136-145 POTASSIUM 3.4 mmol/L L 3.5-5.1 CHLORIDE 100 mmol/L 98-107 CO2 24 mmol/L 22-29 CALCIUM 9.8 mg/dL 8.4-10.2 MAGNESIUM 1.8 mg/dL 1.6-2.6 ANION GAP 10 mmol/L 5-15 .CREAT EGFR(CKD-EPI) >90 >60 Jul 07, 2024 02:00 PM [facility] C DIFF PANEL Specimen Type: FECES No comment entered. Ordering Provider: JEVON ZAZUETA Report Released Date/Time: Jul 07, 2024 12:26 PM Reporting Lab: [facility] [address] Performing Lab: [facility] [phone] C DIFF TOX B GENE PCR NEGATIVE Negative Jul 07, 2024 07:41 AM [facility] PHOSPHORUS Specimen Type: PLASMA No comment entered. Ordering Provider: JEVON ZAZUETA Report Released Date/Time: Jul 06, 2024 03:44 PM Reporting Lab: [facility] [address] Performing Lab: [facility] [address] PHOSPHORUS 3.1 mg/dL 2.3-4.3 Jul 07, 2024 07:41 AM [facility] BASIC METABOLIC PANEL+MG Specimen Type: PLASMA No comment entered. Ordering Provider: JEVON ZAZUETA Report Released Date/Time: Jul 06, 2024 03:44 PM Reporting Lab: [facility] [address] Performing Lab: [facility] [address] CREATININE 0.9 mg/dL 0.7-1.2 UREA NITROGEN 20 mg/dL 8-26 GLUCOSE 157 mg/dL H 70-100 SODIUM 136 mmol/L 136-145 POTASSIUM 3.7 mmol/L 3.5-5.1 CHLORIDE 102 mmol/L 98-107 CO2 21 mmol/L L 22-29 CALCIUM 9.8 mg/dL 8.4-10.2 MAGNESIUM 1.9 mg/dL 1.6-2.6 ANION GAP 13 mmol/L 5-15 .CREAT EGFR(CKD-EPI) >90 >60 Jul 07, 2024 07:40 AM [facility] CBC Specimen Type: BLOOD No comment entered. Ordering Provider: JEVON ZAZUETA Report Released Date/Time: Jul 06, 2024 03:44 PM Reporting Lab: [facility] [address] Performing Lab: [facility] [address] WBC 21.2 H 4.0-11.0 RBC 5.09 4.60-6.20 HGB 15.9 g/dL 13.5-17.9 HCT 48.3 41.0-54.0 MCV 94.9 fL 80.0-100.0 MCH 31.2 pg 27.0-33.0 MCHC 32.9 g/dL 32.0-37.5 PLT 500 H 150-400 MPV 10.3 fL 9.1-13.0 RDW 13.6 11.5-14.5 Jul 06, 2024 07:21 AM [facility] CBC Specimen Type: BLOOD No comment entered. Ordering Provider: JEVON ZAZUETA Report Released Date/Time: Jul 05, 2024 01:22 PM Reporting Lab: [facility] [address] Performing Lab: [facility] [address] WBC 18.0 H 4.0-11.0 RBC 4.83 4.60-6.20 HGB 14.6 g/dL 13.5-17.9 HCT 45.5 41.0-54.0 MCV 94.2 fL 80.0-100.0 MCH 30.2 pg 27.0-33.0 MCHC 32.1 g/dL 32.0-37.5 PLT 368 150-400 MPV 10.4 fL 9.1-13.0 RDW 13.6 11.5-14.5 Jul 06, 2024 07:21 AM [facility] PHOSPHORUS Specimen Type: PLASMA No comment entered. Ordering Provider: JEVON ZAZUETA Report Released Date/Time: Jul 05, 2024 01:22 PM Reporting Lab: [facility] [address] Performing Lab: [facility] [address] PHOSPHORUS 3.6 mg/dL 2.3-4.3 Jul 06, 2024 07:21 AM [facility] BASIC METABOLIC PANEL+MG Specimen Type: PLASMA No comment entered. Ordering Provider: JEVON ZAZUETA Report Released Date/Time: Jul 05, 2024 01:22 PM Reporting Lab: [facility] [address] Performing Lab: [facility] [address] CREATININE 0.7 mg/dL 0.7-1.2 UREA NITROGEN 12 mg/dL 8-26 GLUCOSE 108 mg/dL H 70-100 SODIUM 138 mmol/L 136-145 POTASSIUM 3.4 mmol/L L 3.5-5.1 CHLORIDE 104 mmol/L 98-107 CO2 20 mmol/L L 22-29 CALCIUM 9.3 mg/dL 8.4-10.2 MAGNESIUM 1.9 mg/dL 1.6-2.6 ANION GAP 14 mmol/L 5-15 .CREAT EGFR(CKD-EPI) >90 >60 Jul 05, 2024 07:17 AM [facility] MAGNESIUM Specimen Type: PLASMA No comment entered. Ordering Provider: JUANCARLOS ECHOLS S Report Released Date/Time: Jul 04, 2024 09:39 AM Reporting Lab: [facility] [address] Performing Lab: [facility] [address] MAGNESIUM 2.0 mg/dL 1.6-2.6 Jul 05, 2024 07:17 AM [facility] PHOSPHORUS Specimen Type: PLASMA No comment entered. Ordering Provider: JUANCARLOS ECHOLS S Report Released Date/Time: Jul 04, 2024 09:39 AM Reporting Lab: [facility] [address] Performing Lab: [facility] [address] PHOSPHORUS 2.0 mg/dL L 2.3-4.3 Jul 05, 2024 07:17 AM [facility] BASIC METABOLIC PANEL+MG Specimen Type: PLASMA No comment entered. Ordering Provider: JUANCARLOS ECHOLS S Report Released Date/Time: Jul 04, 2024 09:39 AM Reporting Lab: [facility] [address] Performing Lab: [facility] [address] CREATININE 0.7 mg/dL 0.7-1.2 UREA NITROGEN 12 mg/dL 8-26 GLUCOSE 84 mg/dL 70-100 SODIUM 135 mmol/L L 136-145 POTASSIUM 3.8 mmol/L 3.5-5.1 CHLORIDE 104 mmol/L 98-107 CO2 24 mmol/L 22-29 CALCIUM 9.3 mg/dL 8.4-10.2 MAGNESIUM 2.0 mg/dL 1.6-2.6 ANION GAP 7 mmol/L 5-15 .CREAT EGFR(CKD-EPI) >90 >60 Jul 05, 2024 07:16 AM [facility] CBC Specimen Type: BLOOD No comment entered. Ordering Provider: JUANCARLOS ECHOLS S Report Released Date/Time: Jul 04, 2024 09:39 AM Reporting Lab: [facility] [address] Performing Lab: [facility] [address] WBC 18.3 H 4.0-11.0 RBC 4.49 L 4.60-6.20 HGB 14.1 g/dL 13.5-17.9 HCT 43.4 41.0-54.0 MCV 96.7 fL 80.0-100.0 MCH 31.4 pg 27.0-33.0 MCHC 32.5 g/dL 32.0-37.5 PLT 317 150-400 MPV 10.0 fL 9.1-13.0 RDW 13.9 11.5-14.5 Jul 04, 2024 07:17 AM [facility] BASIC METABOLIC PANEL+MG Specimen Type: PLASMA No comment entered. Ordering Provider: GABINO CAMERON Report Released Date/Time: Jul 03, 2024 06:31 PM Reporting Lab: [facility] [address] Performing Lab: [facility] [address] CREATININE 0.7 mg/dL 0.7-1.2 UREA NITROGEN 16 mg/dL 8-26 GLUCOSE 129 mg/dL H 70-100 SODIUM 137 mmol/L 136-145 POTASSIUM 3.7 mmol/L 3.5-5.1 CHLORIDE 107 mmol/L 98-107 CO2 22 mmol/L 22-29 CALCIUM 9.0 mg/dL 8.4-10.2 MAGNESIUM 1.9 mg/dL 1.6-2.6 ANION GAP 8 mmol/L 5-15 .CREAT EGFR(CKD-EPI) >90 >60 Jul 04, 2024 07:17 AM [facility] PHOSPHORUS Specimen Type: PLASMA No comment entered. Ordering Provider: GABINO CAMERON Report Released Date/Time: Jul 03, 2024 06:31 PM Reporting Lab: [facility] [address] Performing Lab: [facility] [address] PHOSPHORUS 2.8 mg/dL 2.3-4.3 Jul 04, 2024 07:16 AM [facility] CBC Specimen Type: BLOOD No comment entered. Ordering Provider: GABINO CAMERON Report Released Date/Time: Jul 03, 2024 06:31 PM Reporting Lab: [facility] [address] Performing Lab: [facility] [address] WBC 20.6 H 4.0-11.0 RBC 4.63 4.60-6.20 HGB 14.2 g/dL 13.5-17.9 HCT 43.4 41.0-54.0 MCV 93.7 fL 80.0-100.0 MCH 30.7 pg 27.0-33.0 MCHC 32.7 g/dL 32.0-37.5 PLT 329 150-400 MPV 10.4 fL 9.1-13.0 RDW 13.8 11.5-14.5 Jul 04, 2024 07:16 AM [facility] CBC & DIFF Specimen Type: BLOOD Comment: Manual Differential Performed Ordering Provider: GABINO CAMREON Report Released Date/Time: Jul 03, 2024 06:31 PM Reporting Lab: [facility] [address] Performing Lab: [facility] [address] WBC 20.6 H 4.0-11.0 RBC 4.63 4.60-6.20 [...] PRESENT Jul 04, 2024 07:15 AM [facility] BNP Specimen Type: PLASMA No comment entered. Ordering Provider: GABINO CAMERON Report Released Date/Time: Jul 03, 2024 06:31 PM Reporting Lab: [facility] [address] Performing Lab: [facility] [address] BNP 292 pg/mL H <99 Jul 03, 2024 10:32 PM [facility] FINGERSTICK GLUCOSE Specimen Type: BLOOD Comment: Save Result Nurse Notified Ordering Provider: KATELYNN PERSON Report Released Date/Time: Jul 03, 2024 10:50 PM Reporting Lab: [facility] [address] Performing Lab: [facility] [address] FINGERSTICK GLUCOSE 126 mg/dL H 70-100 Jul 03, 2024 05:33 PM [facility] FINGERSTICK GLUCOSE Specimen Type: BLOOD Comment: Save Result Nurse Notified Ordering Provider: KATELYNN PERSON Report Released Date/Time: Jul 03, 2024 05:46 PM Reporting Lab: [facility] [address] Performing Lab: [facility] [address] FINGERSTICK GLUCOSE 141 mg/dL H 70-100 Jul 03, 2024 02:31 PM [facility] POC ABG/ELECTROLYTES Specimen Type: ARTERIAL BLOOD Comment: FIO2 = 97% Patient Temp: 36.0 C Sample Type = ARTERIAL Ordering Provider: MAZIN ARREDONDO Report Released Date/Time: Jul 03, 2024 01:48 PM Reporting Lab: [facility] [address] Performing Lab: [facility] [address] POC PH 7.387 7.35-7.45 POC PCO2 34.4 [...] 80.0-105.0 Jul 03, 2024 01:05 PM [facility] POC ABG/ELECTROLYTES Specimen Type: ARTERIAL BLOOD Comment: FIO2 = 53% Patient Temp: 36.2 C Sample Type = ARTERIAL Ordering Provider: MAZIN ARREDONDO Report Released Date/Time: Jul 03, 2024 01:48 PM Reporting Lab: [facility] [address] Performing Lab: [facility] [address] POC PH 7.280 L 7.35-7.45 POC PCO2 [...] 80.0-105.0 Jul 03, 2024 06:15 AM [facility] URINALYSIS Specimen Type: URINE No comment entered. Ordering Provider: MARYBETH POWELL Report Released Date/Time: Jun 12, 2024 04:01 PM Reporting Lab: [facility] [address] Performing Lab: [facility] [address] URINE COLOR YELLOW SPECIFIC GRAVITY 1.031 1.003-1.03 [...] NEGATIVE Jul 03, 2024 06:13 AM [facility] CBC Specimen Type: BLOOD No comment entered. Ordering Provider: MARYBETH POWELL Report Released Date/Time: Jun 12, 2024 03:59 PM Reporting Lab: [facility] [address] Performing Lab: [facility] [address] WBC 15.8 H 4.0-11.0 RBC 5.11 4.60-6.20 HGB 16.1 g/dL 13.5-17.9 HCT 49.1 41.0-54.0 MCV 96.1 fL 80.0-100.0 MCH 31.5 pg 27.0-33.0 MCHC 32.8 g/dL 32.0-37.5 PLT 357 150-400 MPV 9.8 fL 9.1-13.0 RDW 13.7 11.5-14.5 Jun 24, 2024 09:50 AM [facility] BASIC METABOLIC PANEL+MG Specimen Type: PLASMA Comment: Specimen received in Lab at: 0948 Ordering Provider: JEVON ZAZUETA Report Released Date/Time: Jun 23, 2024 06:07 PM Reporting Lab: [facility] [address] Performing Lab: [facility] [address] CREATININE 0.8 mg/dL 0.7-1.2 UREA NITROGEN 13 mg/dL 8-26 GLUCOSE 135 mg/dL H 70-100 SODIUM 135 mmol/L L 136-145 POTASSIUM 3.6 mmol/L 3.5-5.1 CHLORIDE 103 mmol/L 98-107 CO2 24 mmol/L 22-29 CALCIUM 9.2 mg/dL 8.4-10.2 MAGNESIUM 1.9 mg/dL 1.6-2.6 ANION GAP 8 mmol/L 5-15 .CREAT EGFR(CKD-EPI) >90 >60 Jun 24, 2024 09:50 AM [facility] CBC Specimen Type: BLOOD Comment: Specimen received in Lab at: 0948 Ordering Provider: JEVON ZAZUETA Report Released Date/Time: Jun 23, 2024 06:07 PM Reporting Lab: [facility] [address] Performing Lab: [facility] [address] WBC 15.5 H 4.0-11.0 RBC 4.93 4.60-6.20 HGB 15.2 g/dL 13.5-17.9 HCT 46.5 41.0-54.0 MCV 94.3 fL 80.0-100.0 MCH 30.8 pg 27.0-33.0 MCHC 32.7 g/dL 32.0-37.5 PLT 223 150-400 MPV 11.4 fL 9.1-13.0 RDW 13.9 11.5-14.5 Jun 23, 2024 07:52 AM [facility] COMPREHENSIVE METABOLIC PANEL+MG Specimen Type: PLASMA No comment entered. Ordering Provider: JEVON ZAZUETA Report Released Date/Time: Jun 22, 2024 05:51 PM Reporting Lab: [facility] [address] Performing Lab: [facility] [address] CREATININE 0.7 mg/dL 0.7-1.2 UREA NITROGEN 16 [...] >60 Jun 23, 2024 07:52 AM [facility] CBC & DIFF Specimen Type: BLOOD Comment: Automated Differential Performed Ordering Provider: JEVON ZAZUETA Report Released Date/Time: Jun 22, 2024 05:51 PM Reporting Lab: [facility] [address] Performing Lab: [facility] [address] WBC 14.9 H 4.0-11.0 RBC 5.09 4.60-6.20 [...] 0.0-0.1 Jun 22, 2024 06:10 PM [facility] CBC Specimen Type: BLOOD No comment entered. Ordering Provider: JEVON ZAZUETA Report Released Date/Time: Jun 22, 2024 05:51 PM Reporting Lab: [facility] [address] Performing Lab: [facility] [address] WBC 16.9 H 4.0-11.0 RBC 5.28 4.60-6.20 HGB 16.9 g/dL 13.5-17.9 HCT 50.4 41.0-54.0 MCV 95.5 fL 80.0-100.0 MCH 32.0 pg 27.0-33.0 MCHC 33.5 g/dL 32.0-37.5 PLT 223 150-400 MPV 10.9 fL 9.1-13.0 RDW 14.0 11.5-14.5 Jun 22, 2024 06:10 PM [facility] COMPREHENSIVE METABOLIC PANEL+MG Specimen Type: PLASMA No comment entered. Ordering Provider: JEVON ZAZUETA Report Released Date/Time: Jun 22, 2024 05:51 PM Reporting Lab: [facility] [address] Performing Lab: [facility] [address] CREATININE 0.7 mg/dL 0.7-1.2 UREA NITROGEN 17 [...] >60 Jun 21, 2024 06:48 PM [facility] URINALYSIS Specimen Type: URINE No comment entered. Ordering Provider: DELIA MARTINEZ Report Released Date/Time: Jun 21, 2024 05:45 PM Reporting Lab: [facility] [address] Performing Lab: [facility] [address] URINE COLOR YELLOW SPECIFIC GRAVITY 1.041 H [...] NEGATIVE Jun 21, 2024 05:34 PM [facility] POC CREATININE Specimen Type: BLOOD No comment entered. Ordering Provider: DELIA MARTINEZ Report Released Date/Time: Jun 21, 2024 06:07 PM Reporting Lab: [facility] [address] Performing Lab: [facility] [address] POC CREATININE 1.1 mg/dL 0.6-1.3 Jun 21, 2024 05:30 PM [facility] POC ABG/LACTATE Specimen Type: VENOUS BLOOD No comment entered. Ordering Provider: DELIA MARTINEZ Report Released Date/Time: Jun 21, 2024 06:07 PM Reporting Lab: [facility] [address] Performing Lab: [facility] [address] POC PH 7.470 H 7.31-7.41 POC PCO2 31.2 mm[Hg] L 41.00-51 .0 0 POC PO2 46 mm[Hg] H 35.0-40.0 POC TCO2 24 mmol/L 24.0-29.0 POC HCO3 22.7 mmol/L L 23.0-28.0 POC BE ECT -1 mmol/L POC SO2 85 H 70-75 POC LACTATE 1.85 mmol/L 0.90-1.70 Jun 21, 2024 05:24 PM [facility] PROTHROMBIN TIME/INR Specimen Type: PLASMA No comment entered. Ordering Provider: DELIA MARTINEZ Report Released Date/Time: Jun 21, 2024 05:30 PM Reporting Lab: [facility] [address] Performing Lab: [facility] [address] .INR 1.2 H 0.8-1.1 .PT 13.9 s H 9.4-12.5 Jun 21, 2024 05:24 PM [facility] LIPASE Specimen Type: PLASMA No comment entered. Ordering Provider: DELIA MARTINEZ Report Released Date/Time: Jun 21, 2024 05:30 PM Reporting Lab: [facility] [address] Performing Lab: [facility] [address] LIPASE 32 U/L <60 Jun 21, 2024 05:24 PM [facility] EXTRA GOLD GEL TUBE Specimen Type: SERUM No comment entered. Ordering Provider: DELIA MARTINEZ Report Released Date/Time: Jun 21, 2024 05:41 PM Reporting Lab: [facility] [address] Performing Lab: [facility] [address] EXTRA GOLD GEL TUBE RECEIVED Jun 21, 2024 05:24 PM [facility] COMPREHENSIVE METABOLIC PANEL+MG Specimen Type: PLASMA No comment entered. Ordering Provider: DELIA MARTINEZ Report Released Date/Time: Jun 21, 2024 05:30 PM Reporting Lab: [facility] [address] Performing Lab: [facility] [address] CREATININE 0.9 mg/dL 0.7-1.2 UREA NITROGEN 29 [...] <0.5 Jun 21, 2024 05:24 PM [facility] CBC & DIFF Specimen Type: BLOOD Comment: Manual Differential Performed Ordering Provider: DELIA MARTINEZ Report Released Date/Time: Jun 21, 2024 05:30 PM Reporting Lab: [facility] [address] Performing Lab: [facility] [address] WBC 21.3 H 4.0-11.0 RBC 5.48 4.60-6.20 [...] PRESENT Jun 08, 2024 10:59 AM [facility] PROTHROMBIN TIME/INR Specimen Type: PLASMA No comment entered. Ordering Provider: MARYBETH POWELL Report Released Date/Time: May 28, 2024 09:02 AM Reporting Lab: [facility] [address] Performing Lab: [facility] [address] .INR 1.0 0.8-1.1 .PT 11.8 s 9.4-12.5 Jun 08, 2024 10:59 AM [facility] HEMOGLOBIN A1C Specimen Type: BLOOD Comment: [...] 09:02 AM Reporting Lab: [facility] [address] Performing Lab: [facility] [address] HEMOGLOBIN A1C 4.9 4.0-6.0 Jun 08, 2024 10:59 AM [facility] CBC Specimen Type: BLOOD No comment entered. Ordering Provider: MARYBETH POWELL Report Released Date/Time: May 28, 2024 09:02 AM Reporting Lab: [facility] [address] Performing Lab: [facility] [address] WBC 16.1 H 4.0-11.0 RBC 5.02 4.60-6.20 HGB 16.0 g/dL 13.5-17.9 HCT 47.1 41.0-54.0 MCV 93.8 fL 80.0-100.0 MCH 31.9 pg 27.0-33.0 MCHC 34.0 g/dL 32.0-37.5 PLT 228 150-400 MPV 10.3 fL 9.1-13.0 RDW 14.6 H 11.5-14.5 Jun 08, 2024 10:59 AM [facility] BASIC METABOLIC PANEL+MG Specimen Type: PLASMA No comment entered. Ordering Provider: MARYBETH POWELL Report Released Date/Time: May 28, 2024 09:02 AM Reporting Lab: [facility] [id number] Performing Lab: [facility] [id number] CREATININE 0.9 mg/dL 0.7-1.2 UREA NITROGEN 15 [...] PM 97.8 55 159/73 16 96 4 [facility] Jul 04, 2024 02:15 PM 56 138/64 16 97 4 [facility] Jul 04, 2024 12:40 PM 97.9 57 152/70 16 95 5 [facility] Jul 04, 2024 10:39 AM 59 132/74 16 96 4 [facility] Jul 04, 2024 08:45 AM 98 61 148/67 16 97 4 [facility] Social History: Smoking Status [...] 2024 08:30 AM VA-TOBACCO FORMER USER [facility] Tobacco Use History This section includes a history of the smoking, or tobacco-related health factors, that were collected on or before the date of the Encounter. The data comes from the [place] facility where the Encounter took place. Date/Time Smoking Status/Tobacco Use Comment F acility May 15, 2024 08:30 AM VA-TOBACCO QUIT 15 YRS OR MORE [facility] May 06, 2023 11:30 AM VA-TOBACCO FORMER USER [facility] May 06, 2023 11:30 AM VA-TOBACCO QUIT 15 YRS OR MORE [facility] Jun 04, 2022 09:00 AM VA-TOBACCO FORMER USER [facility] Jun 04, 2022 09:00 AM VA-TOBACCO QUIT 15 YRS OR MORE [facility] Jul 10, 2021 08:00 AM VA-TOBACCO FORMER USER [facility] Jul 10, 2021 08:00 AM VA-TOBACCO QUIT 5 TO < 15 YRS [facility] May 23, 2020 08:30 AM VA-TOBACCO FORMER USER [facility] May 23, 2020 08:30 AM VA-TOBACCO QUIT 5 TO < 15 YRS [facility] Mar 20, 2019 04:03 PM VA-TOBACCO FORMER USER [facility] Mar 20, 2019 04:03 PM VA-TOBACCO QUIT 5 TO < 15 YRS [facility] Mar 21, 2018 08:13 AM FORMER TOBACCO USER 7Y OR GREATE R [facility] Feb 24, 2017 09:24 AM FORMER TOBACCO USER 7Y OR GREATE R [facility] January 07, 2016 08:01 AM FORMER TOBACCO USE >1Y <7Y [facility] Feb 03, 2015 07:58 AM FORMER TOBACCO USE <1Y [facility] Feb 26, 2014 08:41 AM CURRENT TOBACCO USER [facility] May 13, 2011 01:45 PM CURRENT TOBACCO USER [facility] Advance Directives: All historical and current [...] VIEWS PA A ND LAT: FLACA WEAVER [id number] -[id number] M Exm Date: JUL 08, 2024@10:09 Req Phys: KATELYNN PERSON Pat Loc: 2K07-08-2024@11:49 Img Loc: MAIN X-RAY Service: [place] [address] (Case 24 COMPLETE) CHEST 2 VIEWS PA AND LAT (RAD Detailed) CPT:12823 Reason for Study: Uptrending WBC, POD 5 [...] 08, 2024 Date Verified: JUL 08, 2024 Surgical Endoscopist E-Sig: Report: CHEST 2 VIEWS PA AND [...] cardiopulmonary disease. READING PHYSICIAN: Sarbjit Vaughn M.D. -[id number] 07/08/2024 12:[address] [facility] National Teleradiology Program [phone] (For Medical Practitioner Use Only) Attention Patients / Veterans: If you have questions or concerns about these test results, please contact your ordering provider or primary care team. Primary Interpreting Staff: RADIOLOGY,OUTSIDE SERVICE, Staff Physician / RADIOLOGY,OUTSIDE SERVICE [facility] Jul 08, 2024 10:[address] (AP) ABDOMEN/PE LVIS W CONTRAST: FLACA WEAVER [id number] -1950 M Exm Date: JUL 08, 2024@10:00 Req Phys: KATELYNN PERSON Pat Loc: 2K07-08-2024@12:07 Img Loc: CT IMAGING Service: [place] [address] (Case 22 COMPLETE) CT (AP) ABDOMEN/PELVIS W CONTRAST(CT Detailed) CPT:36230 Contrast Media : Non-ionic Iodinated Reason for [...] PLASMA .CREAT EGFR(CKD-E >90 Ref: >=60 Allergies: ([facility] only) TERAZOSIN (Mar 13, 2015) Report Status: Verified Date Reported: JUL 08, 2024 Date Verified: JUL 08, 2024 Surgical Endoscopist E-Sig: Report: CT (AP) ABDOMEN/PELVIS W CONTRAST [...] as noted above READING PHYSICIAN: Celestino Blanc -[phone] 07/08/2024 13:[address] [facility] [employer] [facility] [phone] (For Medical Practitioner Use Only) Attention Patients / Veterans: If you have questions or concerns about these test results, please contact your ordering provider or primary care team. Primary Interpreting Staff: RADIOLOGY,OUTSIDE SERVICE, Staff Physician / RADIOLOGY,OUTSIDE SERVICE [facility] Jun 22, 2024 11:49 AM ABSCESS DRAIN PLAC EMENT PERITONEAL (P): FLACA WEAVER [id number] -1950 M Exm Date: JUN 22, 2024@11:49 Req Phys: ANGELA HOLDEN Loc: [facility]06-22-2024@17:14 Img Loc: INTERVENTIONAL RADIOLOGY Service: [place] [address] (Case [id number] COMPLETE) IR PERITONEAL/RETROPERITONEAL PER(ANI Detailed) CPT:11045 Reason for Study: diverticulitis with abscess (Case 3570 COMPLETE) IR MOD SEDATION 10-22 MIN (ANI Detailed) CPT:93989 Clinical History: IS NOT under investigation for COVID-19 or is COVID-19 negative 73 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 please place abscess drain. Contact number for responsible provider who can be reached for any questions or notifications of critical findings: [phone] n/a LAST CREATININE 0.9 (06/21/24) Report Status: Verified Date Reported: JUN 22, 2024 Date Verified: JUN 22, 2024 Surgical Endoscopist E-Sig:/ES/LISA PENDLETON MD Report: PROCEDURES: Placement of [...] anesthesia. Using real-time CT fluoroscopy, a 5 Chinese Podotreeesis catheter was advanced into the collection in the left pelvis. A wire was coiled in the collection. The tract into the collection was dilated to accommodate the 12 Chinese locking pigtail drainage catheter. There was return [...] Primary Interpreting Staff: LISA PENDLETON MD, RADIOLOGIST (Surgical Endoscopist) /JRLISA [facility] Jun 22, 2024 11:[address] NEEDLE PLACEMEN T (P): FLACA WEAVER [id number] -1950 M Exm Date: JUN 22, 2024@11:48 Req Phys: ANGELA HOLDEN Amanda Loc: [facility]/06-22-2024@17:14 Img Loc: CT IMAGING Service: [place] [address] (Case [id number] COMPLETE) CT SCAN FOR NEEDLE PLACEMENT (CT Detailed) CPT:71064 Reason for Study: l pelvic abscess drain Clinical History: Report Status: Verified Date Reported: JUN 22, 2024 Date Verified: JUN 22, 2024 Surgical Endoscopist E-Sig:/ES/LISA PENDLETON MD Report: PROCEDURES: Placement of [...] anesthesia. Using real-time CT fluoroscopy, a 5 Chinese Podotreeesis catheter was advanced into the collection in the left pelvis. A wire was coiled in the collection. The tract into the collection was dilated to accommodate the 12 Chinese locking pigtail drainage catheter. There was return [...] Primary Interpreting Staff: LISA PENDLETON MD, RADIOLOGIST (Surgical Endoscopist) /JRT LISA PENDLETON [facility] Jun 21, 2024 06:[address] (AP) ABDOMEN/PE LVIS (P): FLACA WEAVER [id number] -1950 M Exm Date: JUN 21, 2024@18:09 Req Phys: DELIA MARTINEZ Pat Loc: [facility] (Re Img Loc: CT IMAGING Service: [place] [address] (Case [id number] COMPLETE) CT (AP) ABDOMEN/PELVIS W CONTRAST(CT Detailed) CPT:56517 Contrast Media : Non-ionic Iodinated Reason for [...] PLASMA .CREAT EGFR(CKD-E >90 Ref: >=60 Allergies: ([facility] only) TERAZOSIN (Mar 13, 2015) Defer to [...] 21, 2024 Date Verified: JUN 21, 2024 Surgical Endoscopist E-Sig:/ALEXI/CARLOS A CUNNINGHAM DO Report: EXAMINATION: CT [...] Interpreting Staff: CARLOS A CUNNINGHAM DO, RADIOLOGIST (Surgical Endoscopist) /CARLOS A ROWELL [facility] Pathology Reports: +/- 30 days of [...] URGENCY: STATUS: COMPLETED $APHDR Reporting Lab: [facility] [CLIA# [id number]] [place] [address] - - - - - - - [...] - PATHOLOGY REPORT Accession No. [id number] - - - - - - - [...] - PATHOLOGY REPORT Accession No. [id number] - - - - - - - [...] Second circumferential surgical margin, en face; E-F: Tele Tech diverticula; G: Tele Tech section of mesentery; H: Random sales representative [...] One colonic tissue ring, bisected transversely. [facility] [place] MICROSCOPIC DESCRIPTION: Microscopic examination performed. DIAGNOSIS: 1. Colon, sigmoid, sigmoidectomy-- - Diverticulosis with perforation and focal abscess formation 2. Colon, anastomotic rings, excision-- - Viable colonic mucosa without diagnostic abnormality /alexi/ EDUARDO PALOMARES MD STAFF PATHOLOGIST Signed Jul 06, 2024@10:40 Performing Laboratory: Surgical Pathology Report Performed By: [facility] [CLIA# [id number]] [place] [address] $FTR - - - - - - [...] - - FLACA WEAVER STANDARD FORM 515 ID:[id number] SEX:M :1950 AGE: 73 LOC:13908 ADM:Jun DX:DIVERTICULITIS PCP: Jatinder Cabrera /alexi/ EDUARDO PALOMARES MD STAFF PATHOLOGIST Signed: 07/06/2024 10:40 EDUARDO PALOMARES [facility] Jun 22, 2024 01:15 PM LR MICROBIOLOGY RE PORT: Reporting Lab: [facility] [CLIA# [id number]] [place] [address] Accession [UID]: [id number] [[id number]] Received: Jun 22, 2024@13:38 Collection sample: FLUID Collection date: Jun 22, 2024 13:15 Provider: ANGELA HOLDEN Comment on specimen: LLQ ABSCESS, RECEIVED IN ANAEROBIC TRANSPORT VIAL Test(s) ordered: GRAM STAIN.................... completed: Jun 22, 2024 15:03 CULTURE & SUSCEPTIBILITY...... completed: Jun 25, 2024 * BACTERIOLOGY FINAL REPORT => Jun 25, 2024 10:56 [facility] CODE: [id number] GRAM STAIN: DIRECT SMEAR of specimen before [...] Performing Laboratory: Bacteriology Report Performed By: [facility] [CLIA# [id number]] [place] [address] [facility] Jun 22, 2024 01:15 PM LR MICROBIOLOGY RE PORT: Reporting Lab: [facility] [CLIA# [id number]] [place] [address] Accession [UID]: [id number] [[id number]] Received: Jun 22, 2024@13:38 Collection sample: FLUID Collection date: Jun 22, 2024 13:15 Provider: ANGELA HOLDEN Comment on specimen: LLQ ABSCESS, RECEIVED IN ANAEROBIC TRANSPORT VIAL Test(s) ordered: ANAEROBIC CULTURE............. completed: Jun 28, 2024 * BACTERIOLOGY FINAL REPORT => Jun 28, 2024 10:08 TECH CODE: [id number] CULTURE RESULTS: HEAVY GROWTH MIXED ANAEROBES Comment: including the followin+ Bacteroides fragilis 4+ Bacteroides vulgatus 4+ Clostridium innocuum Beta-lactamase negative 4+ Bacteroides caccae 4+ Parvimonas micra 4+ Bacteroides uniformis 4+ Gemella morbillorum 4+ anaerobic small, Gram Positive Rods 4+ Bacteroides thetaiotaomicron Standard workup is now complete. Bacteriology Remark(s): THIS REPORT IS FINAL =--=--=--=--=--=--=--=--=--= --=--=--=--=--=--=--=--=--=- -=--=--=--=--=--=--=-- Performing Laboratory: Bacteriology Report Performed By: [facility] [CLIA# [id number]] [place] [address] [facility] Jun 21, 2024 06:12 PM LR MICROBIOLOGY RE PORT: Reporting Lab: [facility] [CLIA# [id number]] [place] [address] Accession [UID]: [id number] [[id number]] Received: Jun 21, 2024@18:12 Collection sample: BLOOD [...] Performing Laboratory: Bacteriology Report Performed By: [facility] [CLIA# [id number]] [place] [address] [facility] Jun 21, 2024 06:11 PM LR MICROBIOLOGY RE PORT: Reporting Lab: [facility] [CLIA# [id number]] [place] [address] Accession [UID]: [id number] [[id number]] Received: Jun 21, 2024@18:11 Collection sample: BLOOD [...] Performing Laboratory: Bacteriology Report Performed By: [facility] [CLIA# [id number]] [place] [address] [facility] Jun 08, 2024 11:00 AM LR MICROBIOLOGY RE PORT: Reporting Lab: [facility] [CLIA# [id number]] [place] [address] Accession [UID]: [id number] [[id number]] Received: Jun 08, 2024@11:00 Collection sample: URINE Collection date: Jun 08, 2024 11:00 Provider: MARYBETH POWELL Comment on specimen: urine Test(s) ordered: CULTURE & SUSCEPTIBILITY...... completed: Jun 09, 2024 * BACTERIOLOGY FINAL REPORT => Jun 09, 2024 19:12 TECH CODE: [id number] CULTURE RESULTS: ESCHERICHIA COLI - Quantity: >100,000 [...] Performing Laboratory: Bacteriology Report Performed By: [facility] [CLIA# [id number]] [place] [address] [facility]
--- OUTSIDE RECORDS SUMMARY | 2024-07-16 07:41 | XMS_ITS ---
[place] DAILY HOSPITALIZATION DATA [facility] HCS Encounter Summary Created on: July 16, 2024 MEG FLACA YAMIL : 1950 Sex: Male Author Name [facility] [place] [facility] [place] Address [address] [place] [address] Care Team Providers Care Certified Wellness Program Coordinator Name Role Phone JATINDER CABRERA Primary [...] PART A Sep 29, 2016 PART A [phone] JUDY WEAVER PATIENT Selected Encounter This section includes the information on record at [place] for the Encounter. Date/Time Encounter Type Encounter Description Reason Pro vider Source Jul 03, 2024 07:17 PM Inpatient Visit DAILY HOSPITALIZATION DATA LINDA [...] 08:15 AM AMBULATORY - NONE [facility] [place] Active, Pending, and Scheduled Orders This section [...] TYPE & SCREEN - LAB BLOOD WC [facility] Jul 03, 2024 12:00 AM Laboratory - Blood Bank Order TYPE & SCREEN - LAB BLOOD [facility] Jul 16, 2024 12:00 AM Laboratory [...] Jul 09, 2024 12:23 PM Reporting Lab: [facility] [address] Performing Lab: [facility] [address] PHOSPHORUS 3.0 mg/dL 2.3-4.3 Jul 10, 2024 07:16 AM [facility] BASIC METABOLIC PANEL+MG Specimen Type: PLASMA No comment entered. Ordering Provider: JUANCARLOS ECHOLS S Report Released Date/Time: Jul 09, 2024 12:23 PM Reporting Lab: [facility] [address] Performing Lab: [facility] [address] CREATININE 0.7 mg/dL 0.7-1.2 UREA NITROGEN 27 [...] Jul 09, 2024 12:23 PM Reporting Lab: [facility] [address] Performing Lab: [facility] [address] WBC 18.8 H 4.0-11.0 RBC 5.08 4.60-6.20 [...] Jul 08, 2024 06:18 PM Reporting Lab: [facility] [address] Performing Lab: [facility] [address] WBC 15.3 H 4.0-11.0 RBC 4.91 4.60-6.20 [...] Jul 08, 2024 08:41 AM Reporting Lab: [facility] [address] Performing Lab: [facility] [address] URINE COLOR YELLOW SPECIFIC GRAVITY >1.050 H [...] Jul 07, 2024 04:49 PM Reporting Lab: [facility] [address] Performing Lab: [facility] [address] WBC 17.5 H 4.0-11.0 RBC 4.88 4.60-6.20 [...] Jul 07, 2024 04:49 PM Reporting Lab: [facility] [address] Performing Lab: [facility] [address] PHOSPHORUS 2.6 mg/dL 2.3-4.3 Jul 08, 2024 09:54 AM [facility] BASIC METABOLIC PANEL+MG Specimen Type: PLASMA Comment: Specimen received in Lab at: 0952 Ordering Provider: JUANCARLOS ECHOLS S Report Released Date/Time: Jul 07, 2024 04:49 PM Reporting Lab: [facility] [address] Performing Lab: [facility] [address] CREATININE 0.9 mg/dL 0.7-1.2 UREA NITROGEN 26 [...] Jul 07, 2024 12:26 PM Reporting Lab: [facility] [address] Performing Lab: [facility] [address] C DIFF TOX B GENE PCR NEGATIVE Negative Jul 07, 2024 07:41 AM [facility] PHOSPHORUS Specimen Type: PLASMA No comment entered. Ordering Provider: JEVON ZAZUETA Report Released Date/Time: Jul 06, 2024 03:44 PM Reporting Lab: [facility] [address] Performing Lab: [facility] [address] PHOSPHORUS 3.1 mg/dL 2.3-4.3 Jul 07, 2024 07:41 AM [facility] BASIC METABOLIC PANEL+MG Specimen Type: PLASMA No comment entered. Ordering Provider: JEVON ZAZUETA Report Released Date/Time: Jul 06, 2024 03:44 PM Reporting Lab: [facility] [address] Performing Lab: [facility] [address] CREATININE 0.9 mg/dL 0.7-1.2 UREA NITROGEN 20 [...] Jul 06, 2024 03:44 PM Reporting Lab: [facility] [address] Performing Lab: [facility] [address] WBC 21.2 H 4.0-11.0 RBC 5.09 4.60-6.20 [...] Jul 05, 2024 01:22 PM Reporting Lab: [facility] [address] Performing Lab: [facility] [address] WBC 18.0 H 4.0-11.0 RBC 4.83 4.60-6.20 [...] Jul 05, 2024 01:22 PM Reporting Lab: [facility] [address] Performing Lab: [facility] [address] PHOSPHORUS 3.6 mg/dL 2.3-4.3 Jul 06, 2024 07:21 AM [facility] BASIC METABOLIC PANEL+MG Specimen Type: PLASMA No comment entered. Ordering Provider: JEVON ZAZUETA Report Released Date/Time: Jul 05, 2024 01:22 PM Reporting Lab: [facility] [address] Performing Lab: [facility] [address] CREATININE 0.7 mg/dL 0.7-1.2 UREA NITROGEN 12 [...] Jul 04, 2024 09:39 AM Reporting Lab: [facility] [address] Performing Lab: [facility] [address] MAGNESIUM 2.0 mg/dL 1.6-2.6 Jul 05, 2024 07:17 AM [facility] PHOSPHORUS Specimen Type: PLASMA No comment entered. Ordering Provider: JUANCARLOS ECHOLS S Report Released Date/Time: Jul 04, 2024 09:39 AM Reporting Lab: [facility] [address] Performing Lab: [facility] [address] PHOSPHORUS 2.0 mg/dL L 2.3-4.3 Jul 05, 2024 07:17 AM [facility] BASIC METABOLIC PANEL+MG Specimen Type: PLASMA No comment entered. Ordering Provider: JUANCARLOS ECHOLS S Report Released Date/Time: Jul 04, 2024 09:39 AM Reporting Lab: [facility] [address] Performing Lab: [facility] [address] CREATININE 0.7 mg/dL 0.7-1.2 UREA NITROGEN 12 [...] Jul 04, 2024 09:39 AM Reporting Lab: [facility] [address] Performing Lab: [facility] [address] WBC 18.3 H 4.0-11.0 RBC 4.49 L [...] Jul 03, 2024 06:31 PM Reporting Lab: [facility] [address] Performing Lab: [facility] [address] CREATININE 0.7 mg/dL 0.7-1.2 UREA NITROGEN 16 [...] Jul 03, 2024 06:31 PM Reporting Lab: [facility] [address] Performing Lab: [facility] [address] PHOSPHORUS 2.8 mg/dL 2.3-4.3 Jul 04, 2024 07:16 AM [facility] CBC Specimen Type: BLOOD No comment entered. Ordering Provider: GABINO CAMERON Report Released Date/Time: Jul 03, 2024 06:31 PM Reporting Lab: [facility] [address] Performing Lab: [facility] [address] WBC 20.6 H 4.0-11.0 RBC 4.63 4.60-6.20 [...] Jul 03, 2024 06:31 PM Reporting Lab: [facility] [address] Performing Lab: [facility] [address] WBC 20.6 H 4.0-11.0 RBC 4.63 4.60-6.20 [...] Jul 03, 2024 06:31 PM Reporting Lab: [facility] [address] Performing Lab: [facility] [address] BNP 292 pg/mL H <99 Jul 03, 2024 10:32 PM [facility] FINGERSTICK GLUCOSE Specimen Type: BLOOD Comment: Save Result Nurse Notified Ordering Provider: KATELYNN PERSON Report Released Date/Time: Jul 03, 2024 10:50 PM Reporting Lab: [facility] [address] Performing Lab: [facility] [address] FINGERSTICK GLUCOSE 126 mg/dL H 70-100 Jul 03, 2024 05:33 PM [facility] FINGERSTICK GLUCOSE Specimen Type: BLOOD Comment: Save Result Nurse Notified Ordering Provider: KATELYNN PERSON Report Released Date/Time: Jul 03, 2024 05:46 PM Reporting Lab: [facility] [address] Performing Lab: [facility] [address] FINGERSTICK GLUCOSE 141 mg/dL H 70-100 Jul 03, 2024 02:31 PM [facility] POC ABG/ELECTROLYTES Specimen Type: ARTERIAL BLOOD Comment: FIO2 = 97% Patient Temp: 36.0 C Sample Type = ARTERIAL Ordering Provider: MAZIN ARREDONDO Report Released Date/Time: Jul 03, 2024 01:48 PM Reporting Lab: [facility] [address] Performing Lab: [facility] [address] POC PH 7.387 7.35-7.45 POC PCO2 34.4 [...] Jul 03, 2024 01:48 PM Reporting Lab: [facility] [address] Performing Lab: [facility] [address] POC PH 7.280 L 7.35-7.45 POC PCO2 [...] Jun 12, 2024 04:01 PM Reporting Lab: [facility] [address] Performing Lab: [facility] [address] URINE COLOR YELLOW SPECIFIC GRAVITY 1.031 1.003-1.03 [...] Jun 12, 2024 03:59 PM Reporting Lab: [facility] [address] Performing Lab: [facility] [address] WBC 15.8 H 4.0-11.0 RBC 5.11 4.60-6.20 [...] Jun 23, 2024 06:07 PM Reporting Lab: [facility] [address] Performing Lab: [facility] [address] CREATININE 0.8 mg/dL 0.7-1.2 UREA NITROGEN 13 [...] Jun 23, 2024 06:07 PM Reporting Lab: [facility] [address] Performing Lab: [facility] [address] WBC 15.5 H 4.0-11.0 RBC 4.93 4.60-6.20 [...] Jun 22, 2024 05:51 PM Reporting Lab: [facility] [address] Performing Lab: [facility] [address] CREATININE 0.7 mg/dL 0.7-1.2 UREA NITROGEN 16 [...] Jun 22, 2024 05:51 PM Reporting Lab: [facility] [address] Performing Lab: [facility] [address] WBC 14.9 H 4.0-11.0 RBC 5.09 4.60-6.20 [...] Jun 22, 2024 05:51 PM Reporting Lab: [facility] [address] Performing Lab: [facility] [address] CREATININE 0.7 mg/dL 0.7-1.2 UREA NITROGEN 17 [...] >90 >60 Jun 22, 2024 06:10 PM [facility] CBC Specimen Type: BLOOD No comment entered. Ordering Provider: JEVON ZAZUETA Report Released Date/Time: Jun 22, 2024 05:51 PM Reporting Lab: [facility] [address] Performing Lab: [facility] [address] WBC 16.9 H 4.0-11.0 RBC 5.28 4.60-6.20 HGB 16.9 g/dL 13.5-17.9 HCT 50.4 41.0-54.0 MCV 95.5 fL 80.0-100.0 MCH 32.0 pg 27.0-33.0 MCHC 33.5 g/dL 32.0-37.5 PLT 223 150-400 MPV 10.9 fL 9.1-13.0 RDW 14.0 11.5-14.5 Jun 21, 2024 06:48 PM [facility] URINALYSIS Specimen Type: URINE No comment entered. Ordering Provider: DELIA MARTINEZ Report Released Date/Time: Jun 21, 2024 05:45 PM Reporting Lab: [facility] [address] Performing Lab: [facility] [address] URINE COLOR YELLOW SPECIFIC GRAVITY 1.041 H [...] Jun 21, 2024 06:07 PM Reporting Lab: [facility] [address] Performing Lab: [facility] [address] POC CREATININE 1.1 mg/dL 0.6-1.3 Jun 21, 2024 05:30 PM [facility] POC ABG/LACTATE Specimen Type: VENOUS BLOOD No comment entered. Ordering Provider: DELIA MARTINEZ Report Released Date/Time: Jun 21, 2024 06:07 PM Reporting Lab: [facility] [address] Performing Lab: [facility] [address] POC PH 7.470 H 7.31-7.41 POC PCO2 [...] Jun 21, 2024 05:30 PM Reporting Lab: [facility] [address] Performing Lab: [facility] [address] .INR 1.2 H 0.8-1.1 .PT 13.9 s H 9.4-12.5 Jun 21, 2024 05:24 PM [facility] LIPASE Specimen Type: PLASMA No comment entered. Ordering Provider: DELIA MARTINEZ Report Released Date/Time: Jun 21, 2024 05:30 PM Reporting Lab: [facility] [address] Performing Lab: [facility] [address] LIPASE 32 U/L <60 Jun 21, 2024 05:24 PM [facility] COMPREHENSIVE METABOLIC PANEL+MG Specimen Type: PLASMA No comment entered. Ordering Provider: DELIA MARTINEZ Report Released Date/Time: Jun 21, 2024 05:30 PM Reporting Lab: [facility] [address] Performing Lab: [facility] [address] CREATININE 0.9 mg/dL 0.7-1.2 UREA NITROGEN 29 [...] Jun 21, 2024 05:41 PM Reporting Lab: [facility] [address] Performing Lab: [facility] [address] EXTRA GOLD GEL TUBE RECEIVED Jun 21, 2024 05:24 PM [facility] CBC & DIFF Specimen Type: BLOOD Comment: Manual Differential Performed Ordering Provider: DELIA MARTINEZ Report Released Date/Time: Jun 21, 2024 05:30 PM Reporting Lab: [facility] [address] Performing Lab: [facility] [address] WBC 21.3 H 4.0-11.0 RBC 5.48 4.60-6.20 [...] May 28, 2024 09:02 AM Reporting Lab: [facility] [address] Performing Lab: [facility] [address] WBC 16.1 H 4.0-11.0 RBC 5.02 4.60-6.20 [...] May 28, 2024 09:02 AM Reporting Lab: [facility] [address] Performing Lab: [facility] [address] .INR 1.0 0.8-1.1 .PT 11.8 s 9.4-12.5 [...] May 28, 2024 09:02 AM Reporting Lab: [facility] [address] Performing Lab: [facility] [address] HEMOGLOBIN A1C 4.9 4.0-6.0 Jun 08, 2024 10:59 AM [facility] BASIC METABOLIC PANEL+MG Specimen Type: PLASMA No comment entered. Ordering Provider: MARYBETH POWELL Report Released Date/Time: May 28, 2024 09:02 AM Reporting Lab: [facility] [address] Performing Lab: [facility] [address] CREATININE 0.9 mg/dL 0.7-1.2 UREA NITROGEN 15 [...] Source Jul 03, 2024 11:26 PM 3 [facility] Jul 03, 2024 10:33 PM 5 [facility] Jul 03, 2024 08:26 PM 3 [facility] Jul 03, 2024 07:58 PM 5 [facility] Jul 03, 2024 07:25 PM 3 [facility] Social History: Smoking Status [...] Mar 23, 2016 CLINICAL WARNING [facility] Radiology Reports: +/- [...] VIEWS LILIAM Mustafa ND LAT: FLACA WEAVER [id number] -1950 M Exm Date: JUL 08, 2024@10:09 Req Phys: KATELYNN PERSON Loc: [facility]/07-08-2024@11:49 Img Loc: MAIN X-RAY Service: [place] [address] (Case 24 COMPLETE) CHEST 2 VIEWS PA AND LAT (RAD Detailed) CPT:80582 Reason for Study: Uptrending WBC, POD 5 [...] 08, 2024 Date Verified: JUL 08, 2024 Pastry Mixer E-Sig: Report: CHEST 2 VIEWS PA AND [...] cardiopulmonary disease. READING PHYSICIAN: Sarbjit Vaughn M.D. -[id number] 07/08/2024 12:46 [facility] National Teleradiology Program [phone] (For Medical Practitioner Use Only) Attention Patients / Veterans: If you have questions or concerns about these test results, please contact your ordering provider or primary care team. Primary Interpreting Staff: RADIOLOGY,OUTSIDE SERVICE, Staff Physician / RADIOLOGY,OUTSIDE SERVICE [facility] Jul 08, 2024 10:[address] (AP) ABDOMEN/PE LVIS W CONTRAST: FLACA WEAVER [id number] -1950 M Exm Date: JUL 08, 2024@10:00 Req Phys: KATELYNN PERSON Pat Loc: 2KG/07-08-2024@12:07 Img Loc: CT IMAGING Service: [place] [address] (Case 22 COMPLETE) CT (AP) ABDOMEN/PELVIS W CONTRAST(CT Detailed) CPT:00499 Contrast Media : Non-ionic Iodinated Reason for [...] PLASMA .CREAT EGFR(CKD-E >90 Ref: >=60 Allergies: (Hepzibah only) TERAZOSIN (Mar 13, 2015) Report Status: Verified Date Reported: JUL 08, 2024 Date Verified: JUL 08, 2024 Pastry Mixer E-Sig: Report: CT (AP) ABDOMEN/PELVIS W CONTRAST [...] as noted above READING PHYSICIAN: Celestino Blanc -[id number] 07/08/2024 13:04 [facility] National Teleradiology Program [phone] (For Medical Practitioner Use Only) Attention Patients / Veterans: If you have questions or concerns about these test results, please contact your ordering provider or primary care team. Primary Interpreting Staff: RADIOLOGY,OUTSIDE SERVICE, Staff Physician / RADIOLOGY,OUTSIDE SERVICE [facility] Jun 22, 2024 11:49 AM ABSCESS DRAIN PLAC EMENT PERITONEAL (P): FLACA WEAVER [id number] -1950 M Exm Date: JUN 22, 2024@11:49 Req Phys: ANGELA HOLDEN Loc: [facility]06-22-2024@17:14 Img Loc: INTERVENTIONAL RADIOLOGY Service: [place] [address] (Case [id number] COMPLETE) IR PERITONEAL/RETROPERITONEAL PER(ANI Detailed) CPT:65655 Reason for Study: diverticulitis with abscess (Case 3570 COMPLETE) IR MOD SEDATION 10-22 MIN (ANI Detailed) CPT:03915 Clinical History: IS NOT under investigation for COVID-19 or is COVID-19 negative 73 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 please place abscess drain. Contact number for responsible provider who can be reached for any questions or notifications of critical findings: [phone] n/a LAST CREATININE 0.9 (06/21/24) Report Status: Verified Date Reported: JUN 22, 2024 Date Verified: JUN 22, 2024 Pastry Mixer E-Sig:/ES/LISA PENDLETON MD Report: PROCEDURES: Placement of [...] Using real-time CT fluoroscopy, a 5 [place] iKure Techsoftesis catheter was advanced into the collection in [...] Primary Interpreting Staff: LISA PENDLETON MD, RADIOLOGIST (Pastry Mixer) /JRT LISA PENDLETON [facility] Jun 22, 2024 11:[address] NEEDLE PLACEMEN T (P): MEGFLACADARCI LOBO [id number] -1950 M Exm Date: JUN 22, 2024@11:48 Req Phys: ANGELA HOLDEN Loc: [facility]/06-22-2024@17:14 Img Loc: CT IMAGING Service: [place] [address] (Case [id number] COMPLETE) CT SCAN FOR NEEDLE PLACEMENT (CT Detailed) CPT:32868 Reason for Study: l pelvic abscess drain Clinical History: Report Status: Verified Date Reported: JUN 22, 2024 Date Verified: JUN 22, 2024 Pastry Mixer E-Sig:/ES/LISA PENDLETON MD Report: PROCEDURES: Placement of abscess drainage catheter with CT guidance CLINICAL HISTORY: Recurrent pericolonic abscess/colovesicular fistula. Abscess drain placement requested prior to planned surgery. COMPARISONS: 06/21/2024 CT examination ATTENDING RADIOLOGIST: Lias Pendleton M.D. Medications: The patient was placed [...] Using real-time CT fluoroscopy, a 5 [place] iKure Techsoftesis catheter was advanced into the collection in [...] Primary Interpreting Staff: LISA PENDLETON MD, RADIOLOGIST (Pastry Mixer) /JRLISA [facility] Jun 21, 2024 06:[address] (AP) ABDOMEN/PE LVIS (P): FLACA WEAVER [id number] -1950 M Exm Date: JUN 21, 2024@18:09 Req Phys: DELIA MARTINEZ Loc: [facility]ALK-[facility] (Re Img Loc: CT IMAGING Service: [place] [address] (Case [id number] COMPLETE) CT (AP) ABDOMEN/PELVIS W CONTRAST(CT Detailed) CPT:84868 Contrast Media : Non-ionic Iodinated Reason for [...] PLASMA .CREAT EGFR(CKD-E >90 Ref: >=60 Allergies: (Hepzibah only) TERAZOSIN (Mar 13, 2015) Defer to [...] 21, 2024 Date Verified: JUN 21, 2024 Pastry Mixer E-Sig:/ES/CARLOS A CUNNINGHAM DO Report: EXAMINATION: CT [...] Interpreting Staff: CARLOS A CUNNINGHAM DO, RADIOLOGIST (Pastry Mixer) /CARLOS A ROWELL [facility] Pathology [...] $APHDR Reporting Lab: [facility] [CLIA# [id number]] [place] [address] - - - - - - - [...] - PATHOLOGY REPORT Accession No. [id number] - - - - - - - [...] - PATHOLOGY REPORT Accession No. [id number] - - - - - - - [...] Second circumferential surgical margin, en face; E-F: Power Plant Manager diverticula; G: Power Plant Manager section of mesentery; H: Random litigation claim representative section of additional adipose tissue fragment. [...] Report Performed By: [facility] [CLIA# [id number]] [place] [address] $FTR - - - - - - [...] - - FLACA WEAVER STANDARD FORM 515 ID:[id number] SEX:M :1950 AGE: 73 LOC:38120 ADM:Jun DX:DIVERTICULITIS PCP: Jatinder Cabrera /alexi/ EDUARDO PALOMARES MD STAFF PATHOLOGIST Signed: 07/06/2024 10:40 EDUARDO PALOMARES [facility] Jun 22, 2024 01:15 PM LR MICROBIOLOGY RE PORT: Reporting Lab: [facility] [CLIA# [id number]] [place] [address] Accession [UID]: [id number] [[id number]] Received: Jun 22, 2024@13:38 Collection sample: FLUID Collection date: Jun 22, 2024 13:15 Provider: ANGELA HOLDEN Comment on specimen: LLQ ABSCESS, RECEIVED IN ANAEROBIC TRANSPORT VIAL Test(s) ordered: GRAM STAIN.................... completed: Jun 22, 2024 15:03 CULTURE & SUSCEPTIBILITY...... completed: Jun 25, 2024 * BACTERIOLOGY FINAL REPORT => Jun 25, 2024 10:56 TECH CODE: [id number] GRAM STAIN: DIRECT SMEAR of specimen before [...] Report Performed By: [facility] [CLIA# [id number]] [place] [address] [facility] Jun 22, 2024 01:15 PM LR MICROBIOLOGY RE PORT: Reporting Lab: [facility] [CLIA# [id number]] [place] [address] Accession [UID]: [id number] [[id number]] Received: Jun 22, 2024@13:38 Collection sample: FLUID Collection date: Jun 22, 2024 13:15 Provider: ANGELA HOLDEN Comment on specimen: LLQ ABSCESS, RECEIVED IN ANAEROBIC TRANSPORT VIAL Test(s) ordered: ANAEROBIC CULTURE............. completed: Jun 28, 2024 * BACTERIOLOGY FINAL REPORT => Jun 28, 2024 10:08 TECH CODE: [id number] CULTURE RESULTS: HEAVY GROWTH MIXED ANAEROBES Comment: [...] Report Performed By: [facility] [CLIA# [id number]] [place] [address] [facility] Jun 21, 2024 06:12 PM LR MICROBIOLOGY RE PORT: Reporting Lab: [facility] [CLIA# [id number]] [place] [address] Accession [UID]: [id number] [[id number]] Received: Jun 21, 2024@18:12 Collection sample: BLOOD [...] Report Performed By: [facility] [CLIA# [id number]] [place] [address] [facility] Jun 21, 2024 06:11 PM LR MICROBIOLOGY RE PORT: Reporting Lab: [facility] [CLIA# [id number]] [place] [address] Accession [UID]: [id number] [[id number]] Received: Jun 21, 2024@18:11 Collection sample: BLOOD [...] Report Performed By: [facility] [CLIA# [id number]] [place] [address] [facility] Jun 08, 2024 11:00 AM LR MICROBIOLOGY RE PORT: Reporting Lab: [facility] [CLIA# [id number]] [place] [address] Accession [UID]: [id number] [[id number]] Received: Jun 08, 2024@11:00 Collection sample: URINE Collection date: Jun 08, 2024 11:00 Provider: MARYBETH POWELL Comment on specimen: urine Test(s) ordered: CULTURE & SUSCEPTIBILITY...... completed: Jun 09, 2024 * BACTERIOLOGY FINAL REPORT => Jun 09, 2024 19:12 TECH CODE: [id number] CULTURE RESULTS: ESCHERICHIA COLI - Quantity: >100,000 [...] Report Performed By: [facility] [CLIA# [id number]] [place] [address] [facility]
--- OUTSIDE RECORDS SUMMARY | 2024-07-16 07:42 | XMS_ITS | Encounter Summary ---
Author Name [facility] [place] [facility] [place] [facility] [place] Address [address] [place] [address] Care Team Providers Care Manager Crisis Name Role Phone JATINDER CABRERA Primary Care [...] PART A Sep 29, 2016 PART A [phone] JUDY WEAVER PATIENT Selected Encounter This section includes the information on record at [place] for the Encounter. Date/Time Encounter Type Encounter Description Reason Provider Source Jul 03, 2024 08:33 AM Inpatient Visit PATIENT CARE IN [place] MAZIN ARREDONDO [facility] Encounter Template Text not used by [place] [...] 2024 08:15 AM AMBULATORY - NONE [facility] Active, Pending, and Scheduled Orders [...] stry Order URINALYSIS URINE WC ONCE [facility] Jun 12, 2024 12:00 AM Laboratory - Chemi stry Order BNP PLASMA SP ONCE [facility] Jun 21, 2024 05:45 PM Laboratory - Blood Bank Order TYPE & SCREEN - LAB BLOOD WC [facility] Jul 03, 2024 12:00 AM [...] PM Reporting Lab: [facility] [address] Performing Lab: [facility] [address] PHOSPHORUS 3.0 mg/dL 2.3-4.3 Jul 10, 2024 07:16 AM [facility] BASIC METABOLIC PANEL+MG Specimen Type: PLASMA No comment entered. Ordering Provider: JUANCARLOS ECHOLS S Report Released Date/Time: Jul 09, 2024 12:23 PM Reporting Lab: [facility] [address] Performing Lab: [facility] [address] CREATININE 0.7 mg/dL 0.7-1.2 UREA NITROGEN 27 [...] PM Reporting Lab: [facility] [address] Performing Lab: [facility] [address] WBC 18.8 H 4.0-11.0 RBC 5.08 4.60-6.20 [...] Jul 08, 2024 06:18 PM Reporting Lab: [facility] [address] Performing Lab: [facility] [address] WBC 15.3 H 4.0-11.0 RBC 4.91 4.60-6.20 [...] Jul 08, 2024 08:41 AM Reporting Lab: [facility] [address] Performing Lab: [facility] [address] URINE COLOR YELLOW SPECIFIC GRAVITY >1.050 H [...] Jul 07, 2024 04:49 PM Reporting Lab: [facility] [address] Performing Lab: [facility] [address] WBC 17.5 H 4.0-11.0 RBC 4.88 4.60-6.20 [...] Jul 07, 2024 04:49 PM Reporting Lab: [facility] [address] Performing Lab: [facility] [address] PHOSPHORUS 2.6 mg/dL 2.3-4.3 Jul 08, 2024 09:54 AM [facility] BASIC METABOLIC PANEL+MG Specimen Type: PLASMA Comment: Specimen received in Lab at: [id number] Ordering Provider: JUANCARLOS ECHOLS S Report Released Date/Time: Jul 07, 2024 04:49 PM Reporting Lab: [facility] [address] Performing Lab: [facility] [address] CREATININE 0.9 mg/dL 0.7-1.2 UREA NITROGEN 26 [...] Jul 07, 2024 12:26 PM Reporting Lab: [facility] [address] Performing Lab: [facility] [address] C DIFF TOX B GENE PCR NEGATIVE Negative Jul 07, 2024 07:41 AM [facility] PHOSPHORUS Specimen Type: PLASMA No comment entered. Ordering Provider: JEVON ZAZUETA Report Released Date/Time: Jul 06, 2024 03:44 PM Reporting Lab: [facility] [address] Performing Lab: [facility] [address] PHOSPHORUS 3.1 mg/dL 2.3-4.3 Jul 07, 2024 07:41 AM [facility] BASIC METABOLIC PANEL+MG Specimen Type: PLASMA No comment entered. Ordering Provider: JEVON ZAZUETA Report Released Date/Time: Jul 06, 2024 03:44 PM Reporting Lab: [facility] [address] Performing Lab: [facility] [address] CREATININE 0.9 mg/dL 0.7-1.2 UREA NITROGEN 20 [...] Jul 06, 2024 03:44 PM Reporting Lab: [facility] [address] Performing Lab: [facility] [address] WBC 21.2 H 4.0-11.0 RBC 5.09 4.60-6.20 [...] Jul 05, 2024 01:22 PM Reporting Lab: [facility] [address] Performing Lab: [facility] [address] WBC 18.0 H 4.0-11.0 RBC 4.83 4.60-6.20 [...] Jul 05, 2024 01:22 PM Reporting Lab: [facility] [address] Performing Lab: [facility] [address] PHOSPHORUS 3.6 mg/dL 2.3-4.3 Jul 06, 2024 07:21 AM [facility] BASIC METABOLIC PANEL+MG Specimen Type: PLASMA No comment entered. Ordering Provider: JEVON ZAZUETA Report Released Date/Time: Jul 05, 2024 01:22 PM Reporting Lab: [facility] [address] Performing Lab: [facility] [address] CREATININE 0.7 mg/dL 0.7-1.2 UREA NITROGEN 12 [...] Jul 04, 2024 09:39 AM Reporting Lab: [facility] [address] Performing Lab: [facility] [address] MAGNESIUM 2.0 mg/dL 1.6-2.6 Jul 05, 2024 07:17 AM [facility] PHOSPHORUS Specimen Type: PLASMA No comment entered. Ordering Provider: JUANCARLOS ECHOLS S Report Released Date/Time: Jul 04, 2024 09:39 AM Reporting Lab: [facility] [address] Performing Lab: [facility] [address] PHOSPHORUS 2.0 mg/dL L 2.3-4.3 Jul 05, 2024 07:17 AM [facility] BASIC METABOLIC PANEL+MG Specimen Type: PLASMA No comment entered. Ordering Provider: JUANCARLOS ECHOLS S Report Released Date/Time: Jul 04, 2024 09:39 AM Reporting Lab: [facility] [address] Performing Lab: [facility] [address] CREATININE 0.7 mg/dL 0.7-1.2 UREA NITROGEN 12 [...] Jul 04, 2024 09:39 AM Reporting Lab: [facility] [address] Performing Lab: [facility] [address] WBC 18.3 H 4.0-11.0 RBC 4.49 L [...] Jul 03, 2024 06:31 PM Reporting Lab: [facility] [address] Performing Lab: [facility] [address] CREATININE 0.7 mg/dL 0.7-1.2 UREA NITROGEN 16 [...] Jul 03, 2024 06:31 PM Reporting Lab: [facility] [address] Performing Lab: [facility] [address] PHOSPHORUS 2.8 mg/dL 2.3-4.3 Jul 04, 2024 07:16 AM [facility] CBC Specimen Type: BLOOD No comment entered. Ordering Provider: GABINO CAMERON Report Released Date/Time: Jul 03, 2024 06:31 PM Reporting Lab: [facility] [address] Performing Lab: [facility] [address] WBC 20.6 H 4.0-11.0 RBC 4.63 4.60-6.20 [...] Jul 03, 2024 06:31 PM Reporting Lab: [facility] [address] Performing Lab: [facility] [address] WBC 20.6 H 4.0-11.0 RBC 4.63 4.60-6.20 [...] Jul 03, 2024 06:31 PM Reporting Lab: [facility] [address] Performing Lab: [facility] [address] BNP 292 pg/mL H <99 Jul 03, 2024 10:32 PM [facility] FINGERSTICK GLUCOSE Specimen Type: BLOOD Comment: Save Result Nurse Notified Ordering Provider: KATELYNN PERSON Report Released Date/Time: Jul 03, 2024 10:50 PM Reporting Lab: [facility] [address] Performing Lab: [facility] [address] FINGERSTICK GLUCOSE 126 mg/dL H 70-100 Jul 03, 2024 05:33 PM [facility] FINGERSTICK GLUCOSE Specimen Type: BLOOD Comment: Save Result Nurse Notified Ordering Provider: KATELYNN PERSON Report Released Date/Time: Jul 03, 2024 05:46 PM Reporting Lab: [facility] [address] Performing Lab: [facility] [address] FINGERSTICK GLUCOSE 141 mg/dL H 70-100 Jul 03, 2024 02:31 PM [facility] POC ABG/ELECTROLYTES Specimen Type: ARTERIAL BLOOD Comment: FIO2 = 97% Patient Temp: 36.0 C Sample Type = ARTERIAL Ordering Provider: MAZIN ARREDONDO Report Released Date/Time: Jul 03, 2024 01:48 PM Reporting Lab: [facility] [address] Performing Lab: [facility] [address] POC PH 7.387 7.35-7.45 POC PCO2 34.4 [...] Jul 03, 2024 01:48 PM Reporting Lab: [facility] [address] Performing Lab: [facility] [address] POC PH 7.280 L 7.35-7.45 POC PCO2 [...] Jun 12, 2024 04:01 PM Reporting Lab: [facility] [address] Performing Lab: [facility] [address] URINE COLOR YELLOW SPECIFIC GRAVITY 1.031 1.003-1.03 [...] Jun 12, 2024 03:59 PM Reporting Lab: [facility] [address] Performing Lab: [facility] [address] WBC 15.8 H 4.0-11.0 RBC 5.11 4.60-6.20 [...] Jun 23, 2024 06:07 PM Reporting Lab: [facility] [address] Performing Lab: [facility] [address] CREATININE 0.8 mg/dL 0.7-1.2 UREA NITROGEN 13 [...] Jun 23, 2024 06:07 PM Reporting Lab: [facility] [address] Performing Lab: [facility] [address] WBC 15.5 H 4.0-11.0 RBC 4.93 4.60-6.20 [...] Jun 22, 2024 05:51 PM Reporting Lab: [facility] [address] Performing Lab: [facility] [address] CREATININE 0.7 mg/dL 0.7-1.2 UREA NITROGEN 16 [...] Jun 22, 2024 05:51 PM Reporting Lab: [facility] [address] Performing Lab: [facility] [address] WBC 14.9 H 4.0-11.0 RBC 5.09 4.60-6.20 [...] Jun 22, 2024 05:51 PM Reporting Lab: [facility] [address] Performing Lab: [facility] [address] CREATININE 0.7 mg/dL 0.7-1.2 UREA NITROGEN 17 [...] Jun 22, 2024 05:51 PM Reporting Lab: [facility] [address] Performing Lab: [facility] [address] WBC 16.9 H 4.0-11.0 RBC 5.28 4.60-6.20 [...] Jun 21, 2024 05:45 PM Reporting Lab: [facility] [address] Performing Lab: [facility] [address] URINE COLOR YELLOW SPECIFIC GRAVITY 1.041 H [...] Jun 21, 2024 06:07 PM Reporting Lab: [facility] [address] Performing Lab: [facility] [address] POC CREATININE 1.1 mg/dL 0.6-1.3 Jun 21, 2024 05:30 PM [facility] POC ABG/LACTATE Specimen Type: VENOUS BLOOD No comment entered. Ordering Provider: DELIA MARTINEZ Report Released Date/Time: Jun 21, 2024 06:07 PM Reporting Lab: [facility] [address] Performing Lab: [facility] [address] POC PH 7.470 H 7.31-7.41 POC PCO2 [...] Jun 21, 2024 05:30 PM Reporting Lab: [facility] [address] Performing Lab: [facility] [address] .INR 1.2 H 0.8-1.1 .PT 13.9 s H 9.4-12.5 Jun 21, 2024 05:24 PM [facility] LIPASE Specimen Type: PLASMA No comment entered. Ordering Provider: DELIA MARTINEZ Report Released Date/Time: Jun 21, 2024 05:30 PM Reporting Lab: [facility] [address] Performing Lab: [facility] [address] LIPASE 32 U/L <60 Jun 21, 2024 05:24 PM [facility] EXTRA GOLD GEL TUBE Specimen Type: SERUM No comment entered. Ordering Provider: DELIA MARTINEZ Report Released Date/Time: Jun 21, 2024 05:41 PM Reporting Lab: [facility] [address] Performing Lab: [facility] [address] EXTRA GOLD GEL TUBE RECEIVED Jun 21, 2024 05:24 PM [facility] COMPREHENSIVE METABOLIC PANEL+MG Specimen Type: PLASMA No comment entered. Ordering Provider: DELIA MARTINEZ Report Released Date/Time: Jun 21, 2024 05:30 PM Reporting Lab: [facility] [address] Performing Lab: [facility] [address] CREATININE 0.9 mg/dL 0.7-1.2 UREA NITROGEN 29 [...] <0.5 Jun 21, 2024 05:24 PM [facility] CBC & DIFF Specimen Type: BLOOD Comment: Manual Differential Performed Ordering Provider: DELIA MARTINEZ Report Released Date/Time: Jun 21, 2024 05:30 PM Reporting Lab: [facility] [address] Performing Lab: [facility] [address] WBC 21.3 H 4.0-11.0 RBC 5.48 4.60-6.20 [...] MORPHOLOGY PRESENT Jun 08, 2024 10:59 AM [facility] PROTHROMBIN TIME/INR Specimen Type: PLASMA No comment entered. Ordering Provider: MARYBETH POWELL Report Released Date/Time: May 28, 2024 09:02 AM Reporting Lab: [facility] [address] Performing Lab: [facility] [address] .INR 1.0 0.8-1.1 .PT 11.8 s 9.4-12.5 Jun 08, 2024 10:59 AM [facility] CBC Specimen Type: BLOOD No comment entered. Ordering Provider: AMRYBETH POWELL Report Released Date/Time: May 28, 2024 09:02 AM Reporting Lab: [facility] [address] Performing Lab: [facility] [address] WBC 16.1 H 4.0-11.0 RBC 5.02 4.60-6.20 [...] May 28, 2024 09:02 AM Reporting Lab: [facility] [address] Performing Lab: [facility] [address] HEMOGLOBIN A1C 4.9 4.0-6.0 Jun 08, 2024 10:59 AM [facility] BASIC METABOLIC PANEL+MG Specimen Type: PLASMA No comment entered. Ordering Provider: MARYBETH POWELL Report Released Date/Time: May 28, 2024 09:02 AM Reporting Lab: [facility] [address] Performing Lab: [facility] [address] CREATININE 0.9 mg/dL 0.7-1.2 UREA NITROGEN 15 [...] Source Jul 03, 2024 11:[address] [facility] Jul 03, 2024 10:[address] [facility] Jul 03, 2024 08:[address] [facility] Jul 03, 2024 07:[address] [facility] Jul 03, 2024 07:[address] [facility] Social [...] VIEWS LILIAM Mustafa [place] LAT: FLACA WEAVER [id number] -1950 M Exm Date: JUL 08, 2024@10:09 Req Phys: KATELYNN PERSON Loc: [facility]/07-08-2024@11:49 Img Loc: MAIN X-RAY Service: [place] [address] (Case 24 COMPLETE) CHEST 2 VIEWS PA AND LAT (RAD Detailed) CPT:97402 Reason for Study: Uptrending WBC, POD 5 [...] 08, 2024 Date Verified: JUL 08, 2024 Auger Operator E-Sig: Report: CHEST 2 VIEWS PA [...] cardiopulmonary disease. READING PHYSICIAN: Sarbjit Vaughn M.D. -[id number] 07/08/2024 12:46 [facility] National Teleradiology Program [phone] (For Medical Practitioner Use Only) Attention Patients / Veterans: If you have questions or concerns about these test results, please contact your ordering provider or primary care team. Primary Interpreting Staff: RADIOLOGY,OUTSIDE SERVICE, Staff Physician / RADIOLOGY,OUTSIDE SERVICE [facility] Jul 08, 2024 10:[address] (AP) ABDOMEN/PE LVIS W CONTRAST: FLACA WEAVER [id number] -1950 M Exm Date: JUL 08, 2024@10:00 Req Phys: KATELYNN PERSON Pat Loc: 2KG/07-08-2024@12:07 Img Loc: CT IMAGING Service: [place] [address] (Case 22 COMPLETE) CT (AP) ABDOMEN/PELVIS W CONTRAST(CT Detailed) CPT:38601 Contrast Media : Non-ionic Iodinated Reason for [...] PLASMA .CREAT EGFR(CKD-E >90 Ref: >=60 Allergies: ([place] only) TERAZOSIN (Mar 13, 2015) Report Status: Verified Date Reported: JUL 08, 2024 Date Verified: JUL 08, 2024 Auger Operator E-Sig: Report: CT (AP) ABDOMEN/PELVIS W [...] as noted above READING PHYSICIAN: Celestino Blanc -[id number] 07/08/2024 13:04 [facility] National Teleradiology Program [phone] (For Medical Practitioner Use Only) Attention Patients / Veterans: If you have questions or concerns about these test results, please contact your ordering provider or primary care team. Primary Interpreting Staff: RADIOLOGY,OUTSIDE SERVICE, Staff Physician / RADIOLOGY,OUTSIDE SERVICE [facility] Jun 22, 2024 11:49 AM ABSCESS DRAIN PLAC EMENT PERITONEAL (P): FLACA WEAVER [id number] -1950 M Exm Date: JUN 22, 2024@11:49 Req Phys: ANGELA HOLDEN Loc: [facility]06-22-2024@17:14 Img Loc: INTERVENTIONAL RADIOLOGY Service: [place] [address] (Case [id number] COMPLETE) IR PERITONEAL/RETROPERITONEAL PER(ANI Detailed) CPT:12032 Reason for Study: diverticulitis with abscess (Case 3570 COMPLETE) IR MOD SEDATION 10-22 MIN (ANI Detailed) CPT:50077 Clinical History: IS NOT under investigation for COVID-19 or is COVID-19 negative 73 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 please place abscess drain. Contact number for responsible provider who can be reached for any questions or notifications of critical findings: [phone] n/a LAST CREATININE 0.9 (06/21/24) Report Status: Verified Date Reported: JUN 22, 2024 Date Verified: JUN 22, 2024 Auger Operator E-Sig:/ES/LISA PENDLETON MD Report: PROCEDURES: Placement [...] Using real-time CT fluoroscopy, a 5 Hungarian Urban Ladderesis catheter was advanced into the collection in [...] Primary Interpreting Staff: LISA PENDLETON MD, RADIOLOGIST (Auger Operator) /JRT LISA PENDLETON [facility] Jun 22, 2024 11:[address] NEEDLE PLACEMEN T (P): MEGFLACADARCI LOBO [id number] -1950 M Exm Date: JUN 22, 2024@11:48 Req Phys: ANGELA HOLDEN Loc: [facility]/06-22-2024@17:14 Img Loc: CT IMAGING Service: [place] [address] (Case [id number] COMPLETE) CT SCAN FOR NEEDLE PLACEMENT (CT Detailed) CPT:84980 Reason for Study: l pelvic abscess drain Clinical History: Report Status: Verified Date Reported: JUN 22, 2024 Date Verified: JUN 22, 2024 Auger Operator E-Sig:/ES/LISA PENDLETON MD Report: PROCEDURES: Placement [...] Using real-time CT fluoroscopy, a 5 Hungarian Urban Ladderesis catheter was advanced into the collection in [...] Primary Interpreting Staff: LISA PENDLETON MD, RADIOLOGIST (Auger Operator) /JRLISA [facility] Jun 21, 2024 06:[address] (AP) ABDOMEN/PE LVIS (P): FLACA WEAVER [id number] -1950 M Exm Date: JUN 21, 2024@18:09 Req Phys: DELIA MARTINEZ Loc: [facility] EMERGENCY DEPT WALK-IN (Re Img Loc: CT IMAGING Service: [place] [address] (Case [id number] COMPLETE) CT (AP) ABDOMEN/PELVIS W CONTRAST(CT Detailed) CPT:77236 Contrast Media : Non-ionic Iodinated Reason for [...] PLASMA .CREAT EGFR(CKD-E >90 Ref: >=60 Allergies: ([place] only) TERAZOSIN (Mar 13, 2015) Defer to [...] 21, 2024 Date Verified: JUN 21, 2024 Auger Operator E-Sig:/ES/CARLOS A CUNNINGHAM DO Report: EXAMINATION: [...] Interpreting Staff: CARLOS A CUNNINGHAM DO, RADIOLOGIST (Auger Operator) /CARLOS A ROWELL [facility] Pathology Reports: +/- [...] Reporting Lab: [facility] [CLIA# [id number]] [place] [address] - - - - - - - [...] - PATHOLOGY REPORT Accession No. [id number] - - - - - - [...] - PATHOLOGY REPORT Accession No. [id number] - - - - - - - [...] Second circumferential surgical margin, en face; E-F: Archival Records Clerk diverticula; G: Archival Records Clerk section of mesentery; H: Random sales representative gas service section of additional adipose tissue fragment. SS. [...] Performed By: [facility] [CLIA# [id number]] [place] [address] $FTR - - - - - - [...] - - FLACA WEAVER STANDARD FORM 515 ID:[id number] SEX:M :1950 AGE: 73 LOC:15710 ADM:Jun DX:DIVERTICULITIS PCP: Jatinder Cabrera /alexi/ EDUARDO PALOMARES MD STAFF PATHOLOGIST Signed: 07/06/2024 10:40 EDUARDO PALOMARES [facility] Jun 22, 2024 01:15 PM LR MICROBIOLOGY RE PORT: Reporting Lab: [facility] [CLIA# [id number]] [place] [address] Accession [UID]: [id number] [[id number]] Received: Jun 22, 2024@13:38 Collection sample: FLUID Collection date: Jun 22, 2024 13:15 Provider: ANGELA HOLDEN Comment on specimen: LLQ ABSCESS, RECEIVED IN ANAEROBIC TRANSPORT VIAL Test(s) ordered: GRAM STAIN.................... completed: Jun 22, 2024 15:03 CULTURE & SUSCEPTIBILITY...... completed: Jun 25, 2024 * BACTERIOLOGY FINAL REPORT => Jun 25, 2024 10:56 TECH CODE: [id number] GRAM STAIN: DIRECT SMEAR of specimen before [...] Performed By: [facility] [CLIA# [id number]] [place] [address] [facility] Jun 22, 2024 01:15 PM LR MICROBIOLOGY RE PORT: Reporting Lab: [facility] [CLIA# [id number]] [place] [address] Accession [UID]: [id number] [[id number]] Received: Jun 22, 2024@13:38 Collection sample: FLUID Collection date: Jun 22, 2024 13:15 Provider: ANGELA HOLDEN Comment on specimen: LLQ ABSCESS, RECEIVED IN ANAEROBIC TRANSPORT VIAL Test(s) ordered: ANAEROBIC CULTURE............. completed: Jun 28, 2024 * BACTERIOLOGY FINAL REPORT => Jun 28, 2024 10:08 TECH CODE: [id number] CULTURE RESULTS: HEAVY GROWTH MIXED ANAEROBES Comment: [...] Performed By: [facility] [CLIA# [id number]] [place] [address] [facility] Jun 21, 2024 06:12 PM LR MICROBIOLOGY RE PORT: Reporting Lab: [facility] [CLIA# [id number]] [place] [address] Accession [UID]: [id number] [[id number]] Received: Jun 21, 2024@18:12 Collection sample: BLOOD [...] Performed By: [facility] [CLIA# [id number]] [place] [address] [facility] Jun 21, 2024 06:11 PM LR MICROBIOLOGY RE PORT: Reporting Lab: [facility] [CLIA# [id number]] [place] [address] Accession [UID]: [id number] [[id number]] Received: Jun 21, 2024@18:11 Collection sample: BLOOD [...] Performed By: [facility] [CLIA# [id number]] [place] [address] [facility] Jun 08, 2024 11:00 AM LR MICROBIOLOGY RE PORT: Reporting Lab: [facility] [CLIA# [id number]] [place] [address] Accession [UID]: [id number] [[id number]] Received: Jun 08, 2024@11:00 Collection sample: URINE Collection date: Jun 08, 2024 11:00 Provider: MARYBETH POWELL Comment on specimen: urine Test(s) ordered: CULTURE & SUSCEPTIBILITY...... completed: Jun 09, 2024 * BACTERIOLOGY FINAL REPORT => Jun 09, 2024 19:12 TECH CODE: [id number] CULTURE RESULTS: ESCHERICHIA COLI - Quantity: >100,000 [...] Performed By: [facility] [CLIA# [id number]] [place] [address] [facility]
--- OUTSIDE RECORDS SUMMARY | 2024-07-16 07:42 | XMS_ITS | Encounter Summary ---
Author Name [facility] [place] [facility] [place] Address [address] [place] [address] Care Team Providers Care Case Monitor Name Role Phone JATINDER CABRERA Primary [...] PART A Sep 29, 2016 PART A [phone] JUDY WEAVER PATIENT Selected Encounter This section includes the information on record at [place] for the Encounter. Date/Time Encounter Type Encounter Description Reason Pro vider Source Jul 03, 2024 08:33 AM Inpatient Visit PATIENT CARE IN [place] Encounter Template Text not used by [place] [...] 08:15 AM AMBULATORY - NONE [facility] Active, Pending, and Scheduled Orders [...] SCREEN - LAB BLOOD SP [facility] Jun 08, 2024 09:57 AM Laboratory - Chemi stry Order URINALYSIS URINE WC ONCE [facility] Jun 12, 2024 12:00 AM Laboratory - Chemi stry Order BNP PLASMA SP ONCE [facility] Jun 21, 2024 05:45 PM Laboratory - Blood Bank Order TYPE & SCREEN - LAB BLOOD [facility] Jul 03, 2024 12:00 AM Laboratory - Blood Bank Order TYPE & SCREEN - LAB BLOOD [facility] Jul 16, 2024 12:00 AM Laboratory - Chemi stry Order CBC BLOOD SP ONCE [facility] Jul 17, 2024 12:00 AM Laboratory - Chemi stry Order BASIC METABOLIC PANEL+MG PLASMA SP ONCE [facility] Lab Results: +/- 30 days [...] Jul 10, 2024 07:16 AM [facility] PHOSPHORUS Specimen Type: PLASMA No comment entered. Ordering Provider: JUANCARLOS ECHOLS S Report Released Date/Time: Jul 09, 2024 12:23 PM Reporting Lab: [facility] [phone] Performing Lab: [facility] [address] PHOSPHORUS 3.0 mg/dL 2.3-4.3 Jul 10, 2024 07:16 AM [facility] BASIC METABOLIC PANEL+MG Specimen Type: PLASMA No comment entered. Ordering Provider: JUANCARLOS ECHOLS S Report Released Date/Time: Jul 09, 2024 12:23 PM Reporting Lab: [facility] [address] Performing Lab: [facility] [address] CREATININE 0.7 mg/dL 0.7-1.2 UREA NITROGEN 27 mg/dL H 8-26 GLUCOSE 104 mg/dL H 70-100 SODIUM 133 mmol/L L 136-145 POTASSIUM 4.3 mmol/L 3.5-5.1 CHLORIDE 102 mmol/L 98-107 CO2 19 mmol/L L 22-29 CALCIUM 10.1 mg/dL 8.4-10.2 MAGNESIUM 1.9 mg/dL 1.6-2.6 ANION GAP 12 mmol/L 5-15 .CREAT EGFR(CKD-EPI) >90 >60 Jul 10, 2024 07:15 AM [facility] CBC Specimen Type: BLOOD No comment entered. Ordering Provider: JUANCARLOS ECHOLS Report Released Date/Time: Jul 09, 2024 12:23 PM Reporting Lab: [facility] [phone] Performing Lab: [facility] [address] WBC 18.8 H 4.0-11.0 RBC 5.08 4.60-6.20 HGB 15.9 g/dL 13.5-17.9 HCT 46.8 41.0-54.0 MCV 92.1 fL 80.0-100.0 MCH 31.3 pg 27.0-33.0 MCHC 34.0 g/dL 32.0-37.5 PLT 479 H 150-400 MPV 10.2 fL 9.1-13.0 RDW 13.7 11.5-14.5 Jul 09, 2024 07:08 AM [facility] CBC Specimen Type: BLOOD No comment entered. Ordering Provider: QUYNH WEISS AV Report Released Date/Time: Jul 08, 2024 06:18 PM Reporting Lab: [facility] [address] Performing Lab: [facility] [address] WBC 15.3 H 4.0-11.0 RBC 4.91 4.60-6.20 HGB 15.1 g/dL 13.5-17.9 HCT 45.7 41.0-54.0 MCV 93.1 fL 80.0-100.0 MCH 30.8 pg 27.0-33.0 MCHC 33.0 g/dL 32.0-37.5 PLT 443 H 150-400 MPV 10.0 fL 9.1-13.0 RDW 13.5 11.5-14.5 Jul 08, 2024 10:50 AM [facility] URINALYSIS Specimen Type: URINE No comment entered. Ordering Provider: KATELYNN PERSON Report Released Date/Time: Jul 08, 2024 08:41 AM Reporting Lab: [facility] [address] Performing Lab: [facility] [address] URINE COLOR YELLOW SPECIFIC GRAVITY >1.050 H [...] Jul 08, 2024 09:54 AM [facility] CBC Specimen Type: BLOOD Comment: Specimen received in Lab at: [id number] Ordering Provider: JUANCARLOS ECHOLS Report Released Date/Time: Jul 07, 2024 04:49 PM Reporting Lab: [facility] [address] Performing Lab: [facility] [address] WBC 17.5 H 4.0-11.0 RBC 4.88 4.60-6.20 HGB 14.9 g/dL 13.5-17.9 HCT 45.7 41.0-54.0 MCV 93.6 fL 80.0-100.0 MCH 30.5 pg 27.0-33.0 MCHC 32.6 g/dL 32.0-37.5 PLT 472 H 150-400 MPV 10.2 fL 9.1-13.0 RDW 13.7 11.5-14.5 Jul 08, 2024 09:54 AM [facility] PHOSPHORUS Specimen Type: PLASMA Comment: Specimen received in Lab at: [id number] Ordering Provider: BALAJADIA,MAR IA S Report Released Date/Time: Jul 07, 2024 04:49 PM Reporting Lab: [facility] [address] Performing Lab: [facility] [address] PHOSPHORUS 2.6 mg/dL 2.3-4.3 Jul 08, 2024 09:54 AM [facility] BASIC METABOLIC PANEL+MG Specimen Type: PLASMA Comment: Specimen received in Lab at: [id number] Ordering Provider: JUANCARLOS ECHOLS S Report Released Date/Time: Jul 07, 2024 04:49 PM Reporting Lab: [facility] [phone] Performing Lab: [facility] [address] CREATININE 0.9 mg/dL 0.7-1.2 UREA NITROGEN 26 mg/dL 8-26 GLUCOSE 128 mg/dL H 70-100 SODIUM 134 mmol/L L 136-145 POTASSIUM 3.4 mmol/L L 3.5-5.1 CHLORIDE 100 mmol/L 98-107 CO2 24 mmol/L 22-29 CALCIUM 9.8 mg/dL 8.4-10.2 MAGNESIUM 1.8 mg/dL 1.6-2.6 ANION GAP 10 mmol/L 5-15 .CREAT EGFR(CKD-EPI) >90 >60 Jul 07, 2024 02:00 PM [facility] C DIFF PANEL Specimen Type: FECES No comment entered. Ordering Provider: JEVON ZAZUETA Report Released Date/Time: Jul 07, 2024 12:26 PM Reporting Lab: [facility] [address] Performing Lab: [facility] [address] C DIFF TOX B GENE PCR NEGATIVE Negative Jul 07, 2024 07:41 AM [facility] PHOSPHORUS Specimen Type: PLASMA No comment entered. Ordering Provider: JEVON ZAZUETA Report Released Date/Time: Jul 06, 2024 03:44 PM Reporting Lab: [facility] [address] Performing Lab: [facility] [address] PHOSPHORUS 3.1 mg/dL 2.3-4.3 Jul 07, 2024 07:41 AM [facility] BASIC METABOLIC PANEL+MG Specimen Type: PLASMA No comment entered. Ordering Provider: JEVON ZAZUETA Report Released Date/Time: Jul 06, 2024 03:44 PM Reporting Lab: [facility] [address] Performing Lab: [facility] [address] CREATININE 0.9 mg/dL 0.7-1.2 UREA NITROGEN 20 mg/dL 8-26 GLUCOSE 157 mg/dL H 70-100 SODIUM 136 mmol/L 136-145 POTASSIUM 3.7 mmol/L 3.5-5.1 CHLORIDE 102 mmol/L 98-107 CO2 21 mmol/L L 22-29 CALCIUM 9.8 mg/dL 8.4-10.2 MAGNESIUM 1.9 mg/dL 1.6-2.6 ANION GAP 13 mmol/L 5-15 .CREAT EGFR(CKD-EPI) >90 >60 Jul 07, 2024 07:40 AM [facility] CBC Specimen Type: BLOOD No comment entered. Ordering Provider: JEVON ZAZUETA Report Released Date/Time: Jul 06, 2024 03:44 PM Reporting Lab: [facility] [phone] Performing Lab: [facility] [address] WBC 21.2 H 4.0-11.0 RBC 5.09 4.60-6.20 HGB 15.9 g/dL 13.5-17.9 HCT 48.3 41.0-54.0 MCV 94.9 fL 80.0-100.0 MCH 31.2 pg 27.0-33.0 MCHC 32.9 g/dL 32.0-37.5 PLT 500 H 150-400 MPV 10.3 fL 9.1-13.0 RDW 13.6 11.5-14.5 Jul 06, 2024 07:21 AM [facility] CBC Specimen Type: BLOOD No comment entered. Ordering Provider: JEVON ZAZUETA Report Released Date/Time: Jul 05, 2024 01:22 PM Reporting Lab: [facility] [address] Performing Lab: [facility] [address] WBC 18.0 H 4.0-11.0 RBC 4.83 4.60-6.20 HGB 14.6 g/dL 13.5-17.9 HCT 45.5 41.0-54.0 MCV 94.2 fL 80.0-100.0 MCH 30.2 pg 27.0-33.0 MCHC 32.1 g/dL 32.0-37.5 PLT 368 150-400 MPV 10.4 fL 9.1-13.0 RDW 13.6 11.5-14.5 Jul 06, 2024 07:21 AM [facility] PHOSPHORUS Specimen Type: PLASMA No comment entered. Ordering Provider: JEVON ZAZUETA Report Released Date/Time: Jul 05, 2024 01:22 PM Reporting Lab: [facility] [address] Performing Lab: [facility] [address] PHOSPHORUS 3.6 mg/dL 2.3-4.3 Jul 06, 2024 07:21 AM [facility] BASIC METABOLIC PANEL+MG Specimen Type: PLASMA No comment entered. Ordering Provider: JEVON ZAZUETA Report Released Date/Time: Jul 05, 2024 01:22 PM Reporting Lab: [facility] [address] Performing Lab: [facility] [address] CREATININE 0.7 mg/dL 0.7-1.2 UREA NITROGEN 12 mg/dL 8-26 GLUCOSE 108 mg/dL H 70-100 SODIUM 138 mmol/L 136-145 POTASSIUM 3.4 mmol/L L 3.5-5.1 CHLORIDE 104 mmol/L 98-107 CO2 20 mmol/L L 22-29 CALCIUM 9.3 mg/dL 8.4-10.2 MAGNESIUM 1.9 mg/dL 1.6-2.6 ANION GAP 14 mmol/L 5-15 .CREAT EGFR(CKD-EPI) >90 >60 Jul 05, 2024 07:17 AM [facility] MAGNESIUM Specimen Type: PLASMA No comment entered. Ordering Provider: JUANCARLOS ECHOLS S Report Released Date/Time: Jul 04, 2024 09:39 AM Reporting Lab: [facility] [phone] Performing Lab: [facility] [address] MAGNESIUM 2.0 mg/dL 1.6-2.6 Jul 05, 2024 07:17 AM [facility] PHOSPHORUS Specimen Type: PLASMA No comment entered. Ordering Provider: JUANCARLOS ECHOLS S Report Released Date/Time: Jul 04, 2024 09:39 AM Reporting Lab: [facility] [phone] Performing Lab: [facility] [address] PHOSPHORUS 2.0 mg/dL L 2.3-4.3 Jul 05, 2024 07:17 AM [facility] BASIC METABOLIC PANEL+MG Specimen Type: PLASMA No comment entered. Ordering Provider: JUANCARLOS ECHOLS S Report Released Date/Time: Jul 04, 2024 09:39 AM Reporting Lab: [facility] [address] Performing Lab: [facility] [address] CREATININE 0.7 mg/dL 0.7-1.2 UREA NITROGEN 12 mg/dL 8-26 GLUCOSE 84 mg/dL 70-100 SODIUM 135 mmol/L L 136-145 POTASSIUM 3.8 mmol/L 3.5-5.1 CHLORIDE 104 mmol/L 98-107 CO2 24 mmol/L 22-29 CALCIUM 9.3 mg/dL 8.4-10.2 MAGNESIUM 2.0 mg/dL 1.6-2.6 ANION GAP 7 mmol/L 5-15 .CREAT EGFR(CKD-EPI) >90 >60 Jul 05, 2024 07:16 AM [facility] CBC Specimen Type: BLOOD No comment entered. Ordering Provider: JUANCARLOS ECHOLS S Report Released Date/Time: Jul 04, 2024 09:39 AM Reporting Lab: [facility] [phone] Performing Lab: [facility] [address] WBC 18.3 H 4.0-11.0 RBC 4.49 L 4.60-6.20 HGB 14.1 g/dL 13.5-17.9 HCT 43.4 41.0-54.0 MCV 96.7 fL 80.0-100.0 MCH 31.4 pg 27.0-33.0 MCHC 32.5 g/dL 32.0-37.5 PLT 317 150-400 MPV 10.0 fL 9.1-13.0 RDW 13.9 11.5-14.5 Jul 04, 2024 07:17 AM [facility] BASIC METABOLIC PANEL+MG Specimen Type: PLASMA No comment entered. Ordering Provider: GABINO CAMERON Report Released Date/Time: Jul 03, 2024 06:31 PM Reporting Lab: [facility] [address] Performing Lab: [facility] [address] CREATININE 0.7 mg/dL 0.7-1.2 UREA NITROGEN 16 mg/dL 8-26 GLUCOSE 129 mg/dL H 70-100 SODIUM 137 mmol/L 136-145 POTASSIUM 3.7 mmol/L 3.5-5.1 CHLORIDE 107 mmol/L 98-107 CO2 22 mmol/L 22-29 CALCIUM 9.0 mg/dL 8.4-10.2 MAGNESIUM 1.9 mg/dL 1.6-2.6 ANION GAP 8 mmol/L 5-15 .CREAT EGFR(CKD-EPI) >90 >60 Jul 04, 2024 07:17 AM [facility] PHOSPHORUS Specimen Type: PLASMA No comment entered. Ordering Provider: GABINO CAMERON Report Released Date/Time: Jul 03, 2024 06:31 PM Reporting Lab: [facility] [address] Performing Lab: [facility] [address] PHOSPHORUS 2.8 mg/dL 2.3-4.3 Jul 04, 2024 07:16 AM [facility] CBC Specimen Type: BLOOD No comment entered. Ordering Provider: GABINO CAMERON Report Released Date/Time: Jul 03, 2024 06:31 PM Reporting Lab: [facility] [address] Performing Lab: [facility] [address] WBC 20.6 H 4.0-11.0 RBC 4.63 4.60-6.20 HGB 14.2 g/dL 13.5-17.9 HCT 43.4 41.0-54.0 MCV 93.7 fL 80.0-100.0 MCH 30.7 pg 27.0-33.0 MCHC 32.7 g/dL 32.0-37.5 PLT 329 150-400 MPV 10.4 fL 9.1-13.0 RDW 13.8 11.5-14.5 Jul 04, 2024 07:16 AM [facility] CBC & DIFF Specimen Type: BLOOD Comment: Manual Differential Performed Ordering Provider: GABINO CAMERON Report Released Date/Time: Jul 03, 2024 06:31 PM Reporting Lab: [facility] [address] Performing Lab: [facility] [address] WBC 20.6 H 4.0-11.0 RBC 4.63 4.60-6.20 [...] Jul 04, 2024 07:15 AM [facility] BNP Specimen Type: PLASMA No comment entered. Ordering Provider: GABINO CAMERON Report Released Date/Time: Jul 03, 2024 06:31 PM Reporting Lab: [facility] [phone] Performing Lab: [facility] [address] BNP 292 pg/mL H <99 Jul 03, 2024 10:32 PM [facility] FINGERSTICK GLUCOSE Specimen Type: BLOOD Comment: Save Result Nurse Notified Ordering Provider: KATELYNN PERSON Report Released Date/Time: Jul 03, 2024 10:50 PM Reporting Lab: [facility] [address] Performing Lab: [facility] [address] FINGERSTICK GLUCOSE 126 mg/dL H 70-100 Jul 03, 2024 05:33 PM [facility] FINGERSTICK GLUCOSE Specimen Type: BLOOD Comment: Save Result Nurse Notified Ordering Provider: KATELYNN PERSON Report Released Date/Time: Jul 03, 2024 05:46 PM Reporting Lab: [facility] [address] Performing Lab: [facility] [address] FINGERSTICK GLUCOSE 141 mg/dL H 70-100 Jul 03, 2024 02:31 PM [facility] POC ABG/ELECTROLYTES Specimen Type: ARTERIAL BLOOD Comment: FIO2 = 97% Patient Temp: 36.0 C Sample Type = ARTERIAL Ordering Provider: MAZIN ARREDONDO Report Released Date/Time: Jul 03, 2024 01:48 PM Reporting Lab: [facility] [address] Performing Lab: [facility] [address] POC PH 7.387 7.35-7.45 POC PCO2 34.4 [...] Jul 03, 2024 01:05 PM [facility] POC ABG/ELECTROLYTES Specimen Type: ARTERIAL BLOOD Comment: FIO2 = 53% Patient Temp: 36.2 C Sample Type = ARTERIAL Ordering Provider: MAZIN ARREDONDO Report Released Date/Time: Jul 03, 2024 01:48 PM Reporting Lab: [facility] [address] Performing Lab: [facility] [address] POC PH 7.280 L 7.35-7.45 POC PCO2 [...] Jul 03, 2024 06:15 AM [facility] URINALYSIS Specimen Type: URINE No comment entered. Ordering Provider: MARYBETH POWELL Report Released Date/Time: Jun 12, 2024 04:01 PM Reporting Lab: [facility] [address] Performing Lab: [facility] [address] URINE COLOR YELLOW SPECIFIC GRAVITY 1.031 1.003-1.03 [...] Jul 03, 2024 06:13 AM [facility] CBC Specimen Type: BLOOD No comment entered. Ordering Provider: MARYBETH POWELL Report Released Date/Time: Jun 12, 2024 03:59 PM Reporting Lab: [facility] [address] Performing Lab: [facility] [address] WBC 15.8 H 4.0-11.0 RBC 5.11 4.60-6.20 HGB 16.1 g/dL 13.5-17.9 HCT 49.1 41.0-54.0 MCV 96.1 fL 80.0-100.0 MCH 31.5 pg 27.0-33.0 MCHC 32.8 g/dL 32.0-37.5 PLT 357 150-400 MPV 9.8 fL 9.1-13.0 RDW 13.7 11.5-14.5 Jun 24, 2024 09:50 AM [facility] BASIC METABOLIC PANEL+MG Specimen Type: PLASMA Comment: Specimen received in Lab at: [id number] Ordering Provider: JEVON ZAZUETA Report Released Date/Time: Jun 23, 2024 06:07 PM Reporting Lab: [facility] [address] Performing Lab: [facility] [address] CREATININE 0.8 mg/dL 0.7-1.2 UREA NITROGEN 13 mg/dL 8-26 GLUCOSE 135 mg/dL H 70-100 SODIUM 135 mmol/L L 136-145 POTASSIUM 3.6 mmol/L 3.5-5.1 CHLORIDE 103 mmol/L 98-107 CO2 24 mmol/L 22-29 CALCIUM 9.2 mg/dL 8.4-10.2 MAGNESIUM 1.9 mg/dL 1.6-2.6 ANION GAP 8 mmol/L 5-15 .CREAT EGFR(CKD-EPI) >90 >60 Jun 24, 2024 09:50 AM [facility] CBC Specimen Type: BLOOD Comment: Specimen received in Lab at: 0948 Ordering Provider: JEVON ZAZUETA Report Released Date/Time: Jun 23, 2024 06:07 PM Reporting Lab: [facility] [address] Performing Lab: [facility] [address] WBC 15.5 H 4.0-11.0 RBC 4.93 4.60-6.20 HGB 15.2 g/dL 13.5-17.9 HCT 46.5 41.0-54.0 MCV 94.3 fL 80.0-100.0 MCH 30.8 pg 27.0-33.0 MCHC 32.7 g/dL 32.0-37.5 PLT 223 150-400 MPV 11.4 fL 9.1-13.0 RDW 13.9 11.5-14.5 Jun 23, 2024 07:52 AM [facility] COMPREHENSIVE METABOLIC PANEL+MG Specimen Type: PLASMA No comment entered. Ordering Provider: JEVON ZAZUETA Report Released Date/Time: Jun 22, 2024 05:51 PM Reporting Lab: [facility] [address] Performing Lab: [facility] [address] CREATININE 0.7 mg/dL 0.7-1.2 UREA NITROGEN 16 [...] Jun 23, 2024 07:52 AM [facility] CBC & DIFF Specimen Type: BLOOD Comment: Automated Differential Performed Ordering Provider: JEVON ZAZUETA Report Released Date/Time: Jun 22, 2024 05:51 PM Reporting Lab: [facility] [address] Performing Lab: [facility] [address] WBC 14.9 H 4.0-11.0 RBC 5.09 4.60-6.20 [...] Jun 22, 2024 06:10 PM [facility] CBC Specimen Type: BLOOD No comment entered. Ordering Provider: JEVON ZAZUETA Report Released Date/Time: Jun 22, 2024 05:51 PM Reporting Lab: [facility] [address] Performing Lab: [facility] [address] WBC 16.9 H 4.0-11.0 RBC 5.28 4.60-6.20 HGB 16.9 g/dL 13.5-17.9 HCT 50.4 41.0-54.0 MCV 95.5 fL 80.0-100.0 MCH 32.0 pg 27.0-33.0 MCHC 33.5 g/dL 32.0-37.5 PLT 223 150-400 MPV 10.9 fL 9.1-13.0 RDW 14.0 11.5-14.5 Jun 22, 2024 06:10 PM [facility] COMPREHENSIVE METABOLIC PANEL+MG Specimen Type: PLASMA No comment entered. Ordering Provider: JEVON ZAZUETA Report Released Date/Time: Jun 22, 2024 05:51 PM Reporting Lab: [facility] [address] Performing Lab: [facility] [address] CREATININE 0.7 mg/dL 0.7-1.2 UREA NITROGEN 17 [...] Jun 21, 2024 06:48 PM [facility] URINALYSIS Specimen Type: URINE No comment entered. Ordering Provider: DELIA MARTINEZ Report Released Date/Time: Jun 21, 2024 05:45 PM Reporting Lab: [facility] [address] Performing Lab: [facility] [address] URINE COLOR YELLOW SPECIFIC GRAVITY 1.041 H [...] Jun 21, 2024 05:34 PM [facility] POC CREATININE Specimen Type: BLOOD No comment entered. Ordering Provider: DELIA MARTINEZ Report Released Date/Time: Jun 21, 2024 06:07 PM Reporting Lab: [facility] [address] Performing Lab: [facility] [address] POC CREATININE 1.1 mg/dL 0.6-1.3 Jun 21, 2024 05:30 PM [facility] POC ABG/LACTATE Specimen Type: VENOUS BLOOD No comment entered. Ordering Provider: DELIA MARTINEZ Report Released Date/Time: Jun 21, 2024 06:07 PM Reporting Lab: [facility] [address] Performing Lab: [facility] [address] POC PH 7.470 H 7.31-7.41 POC PCO2 31.2 mm[Hg] L 41.00-51 .0 0 POC PO2 46 mm[Hg] H 35.0-40.0 POC TCO2 24 mmol/L 24.0-29.0 POC HCO3 22.7 mmol/L L 23.0-28.0 POC BE ECT -1 mmol/L POC SO2 85 H 70-75 POC LACTATE 1.85 mmol/L 0.90-1.70 Jun 21, 2024 05:24 PM [facility] PROTHROMBIN TIME/INR Specimen Type: PLASMA No comment entered. Ordering Provider: DELIA MARTINEZ Report Released Date/Time: Jun 21, 2024 05:30 PM Reporting Lab: [facility] [phone] Performing Lab: [facility] [address] .INR 1.2 H 0.8-1.1 .PT 13.9 s H 9.4-12.5 Jun 21, 2024 05:24 PM [facility] LIPASE Specimen Type: PLASMA No comment entered. Ordering Provider: DELIA MARTINEZ Report Released Date/Time: Jun 21, 2024 05:30 PM Reporting Lab: [facility] [address] Performing Lab: [facility] [address] LIPASE 32 U/L <60 Jun 21, 2024 05:24 PM [facility] EXTRA GOLD GEL TUBE Specimen Type: SERUM No comment entered. Ordering Provider: DELIA MARTINEZ Report Released Date/Time: Jun 21, 2024 05:41 PM Reporting Lab: [facility] [address] Performing Lab: [facility] [address] EXTRA GOLD GEL TUBE RECEIVED Jun 21, 2024 05:24 PM [facility] COMPREHENSIVE METABOLIC PANEL+MG Specimen Type: PLASMA No comment entered. Ordering Provider: DELIA MARTINEZ Report Released Date/Time: Jun 21, 2024 05:30 PM Reporting Lab: [facility] [address] Performing Lab: [facility] [address] CREATININE 0.9 mg/dL 0.7-1.2 UREA NITROGEN 29 [...] Jun 21, 2024 05:24 PM [facility] CBC & DIFF Specimen Type: BLOOD Comment: Manual Differential Performed Ordering Provider: DELIA MARTINEZ Report Released Date/Time: Jun 21, 2024 05:30 PM Reporting Lab: [facility] [address] Performing Lab: [facility] [address] WBC 21.3 H 4.0-11.0 RBC 5.48 4.60-6.20 [...] Jun 08, 2024 10:59 AM [facility] PROTHROMBIN TIME/INR Specimen Type: PLASMA No comment entered. Ordering Provider: MARYBETH POWELL Report Released Date/Time: May 28, 2024 09:02 AM Reporting Lab: [facility] [address] Performing Lab: [facility] [address] .INR 1.0 0.8-1.1 .PT 11.8 s 9.4-12.5 Jun 08, 2024 10:59 AM [facility] HEMOGLOBIN A1C Specimen Type: BLOOD [...] 2024 09:02 AM Reporting Lab: [facility] [address] Performing Lab: [facility] [address] HEMOGLOBIN A1C 4.9 4.0-6.0 Jun 08, 2024 10:59 AM [facility] CBC Specimen Type: BLOOD No comment entered. Ordering Provider: MARYBETH POWELL Report Released Date/Time: May 28, 2024 09:02 AM Reporting Lab: [facility] [address] Performing Lab: [facility] [address] WBC 16.1 H 4.0-11.0 RBC 5.02 4.60-6.20 HGB 16.0 g/dL 13.5-17.9 HCT 47.1 41.0-54.0 MCV 93.8 fL 80.0-100.0 MCH 31.9 pg 27.0-33.0 MCHC 34.0 g/dL 32.0-37.5 PLT 228 150-400 MPV 10.3 fL 9.1-13.0 RDW 14.6 H 11.5-14.5 Jun 08, 2024 10:59 AM [facility] BASIC METABOLIC PANEL+MG Specimen Type: PLASMA No comment entered. Ordering Provider: MARYBETH POWELL Report Released Date/Time: May 28, 2024 09:02 AM Reporting Lab: [facility] [address] Performing Lab: [facility] [address] CREATININE 0.9 mg/dL 0.7-1.2 UREA NITROGEN 15 [...] Source Jul 03, 2024 11:26 PM 3 [facility] Jul 03, 2024 10:33 PM 5 [facility] Jul 03, 2024 08:26 PM 3 [facility] Jul 03, 2024 07:58 PM 5 [facility] Jul 03, 2024 07:25 PM 3 [facility] Social History: Smoking Status (Most [...] 08:30 AM VA-TOBACCO FORMER USER [facility] Tobacco Use History This section includes a history of the smoking, or tobacco-related health factors, that were collected on or before the date of the Encounter. The data comes from the [place] facility where the Encounter took place. Date/Time Smoking Status/Tobacco Use Comment F acility May 15, 2024 08:30 AM VA-TOBACCO QUIT 15 YRS OR MORE [facility] May 06, 2023 11:30 AM VA-TOBACCO FORMER USER [facility] May 06, 2023 11:30 AM VA-TOBACCO QUIT 15 YRS OR MORE [facility] Jun 04, 2022 09:00 AM VA-TOBACCO FORMER USER [facility] Jun 04, 2022 09:00 AM VA-TOBACCO QUIT 15 YRS OR MORE [facility] Jul 10, 2021 08:00 AM VA-TOBACCO FORMER USER [facility] Jul 10, 2021 08:00 AM VA-TOBACCO QUIT 5 TO < 15 YRS [facility] May 23, 2020 08:30 AM VA-TOBACCO FORMER USER [facility] May 23, 2020 08:30 AM VA-TOBACCO QUIT 5 TO < 15 YRS [facility] Mar 20, 2019 04:03 PM VA-TOBACCO FORMER USER [facility] Mar 20, 2019 04:03 PM VA-TOBACCO QUIT 5 TO < 15 YRS [facility] Mar 21, 2018 08:13 AM FORMER TOBACCO USER 7Y OR GREATE R [facility] Feb 24, 2017 09:24 AM FORMER TOBACCO USER 7Y OR GREATE R [facility] January 07, 2016 08:01 AM FORMER TOBACCO USE >1Y <7Y [facility] Feb 03, 2015 07:58 AM FORMER TOBACCO USE <1Y [facility] Feb 26, 2014 08:41 AM CURRENT TOBACCO USER [facility] May 13, 2011 01:45 PM CURRENT TOBACCO USER [facility] Advance Directives: All historical and [...] 23, 2016 CLINICAL [place]ING [place] [facility] [facility] Radiology Reports: +/- [...] VIEWS PA A ND LAT: FLACA WEAVER [id number] -1950 M Exm Date: JUL 08, 2024@10:09 Req Phys: KATELYNN PERSON Loc: 2K/07-08-2024@11:49 Img Loc: MAIN X-RAY Service: [place] [address] (Case 24 COMPLETE) CHEST 2 VIEWS PA AND LAT (RAD Detailed) CPT:88235 Reason for Study: Uptrending WBC, POD 5 Clinical History: [place] IS NOT under investigation for COVID-19 or is COVID-19 negative POD 5, work up for uptrending wbc Responsible provider name and phone number to notify for critical findings if other than user placing the order and pager listed below: User placing orders pager: Katelynn Person LAST CREATININE 0.9 (07/07/24) Report Status: Verified Date Reported: JUL 08, 2024 Date Verified: JUL 08, 2024 Credit Report Checker E-Sig: Report: CHEST 2 VIEWS PA AND [...] cardiopulmonary disease. READING PHYSICIAN: Sarbjit Vaughn M.D. -[id number] 07/08/2024 12:46 [facility] [phone] (For Medical Practitioner Use Only) Attention Patients / Veterans: If you have questions or concerns about these test results, please contact your ordering provider or primary care team. Primary Interpreting Staff: RADIOLOGY,OUTSIDE SERVICE, Staff Physician / RADIOLOGY,OUTSIDE SERVICE [facility] Jul 08, 2024 10:[address] (AP) ABDOMEN/PE LVIS W CONTRAST: FLACA WEAVER [id number] -1950 M Exm Date: JUL 08, 2024@10:00 Req Phys: KATELYNN PERSON Pat Loc: 2KG/07-08-2024@12:07 Img Loc: CT IMAGING Service: [place] [address] (Case 22 COMPLETE) CT (AP) ABDOMEN/PELVIS W CONTRAST(CT Detailed) CPT:61568 Contrast Media : Non-ionic Iodinated Reason for [...] PLASMA .CREAT EGFR(CKD-E >90 Ref: >=60 Allergies: ([place] only) TERAZOSIN (Mar 13, 2015) Report Status: Verified Date Reported: JUL 08, 2024 Date Verified: JUL 08, 2024 Credit Report Checker E-Sig: Report: CT (AP) ABDOMEN/PELVIS W CONTRAST [...] as noted above READING PHYSICIAN: Celestino Blanc -[phone] 07/08/2024 13:04 [employer] [facility] [phone] (For Medical Practitioner Use Only) Attention Patients / Veterans: If you have questions or concerns about these test results, please contact your ordering provider or primary care team. Primary Interpreting Staff: RADIOLOGY,OUTSIDE SERVICE, Staff Physician / RADIOLOGY,OUTSIDE SERVICE [facility] Jun 22, 2024 11:49 AM ABSCESS DRAIN PLAC EMENT PERITONEAL (P): FLACA WEAVER [id number] -1950 M Exm Date: JUN 22, 2024@11:49 Req Phys: ANGELA HOLDEN Loc: 2K06-22-2024@17:14 Img Loc: INTERVENTIONAL RADIOLOGY Service: [facility] [address] (Case [id number] COMPLETE) IR PERITONEAL/RETROPERITONEAL PER(ANI Detailed) CPT:10895 Reason for Study: diverticulitis with abscess (Case [id number] COMPLETE) IR MOD SEDATION 10-22 MIN (ANI Detailed) CPT:12559 Clinical History: Rhododendron IS NOT under investigation for COVID-19 or is COVID-19 negative 73 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 please place abscess drain. Contact number for responsible provider who can be reached for any questions or notifications of critical findings: [phone] n/a LAST CREATININE 0.9 (06/21/24) Report Status: Verified Date Reported: JUN 22, 2024 Date Verified: JUN 22, 2024 Credit Report Checker E-Sig:/ES/LISA PENDLETON MD Report: PROCEDURES: Placement of [...] anesthesia. Using real-time CT fluoroscopy, a 5 Bhutanese FashionAttitude.comesis catheter was advanced into the collection in the left pelvis. A wire was coiled in the collection. The tract into the collection was dilated to accommodate the 12 Bhutanese locking pigtail drainage catheter. There was return [...] Primary Interpreting Staff: LISA PENDLETON MD, RADIOLOGIST (Credit Report Checker) /JRT LISA PENDLETON [facility] Jun 22, 2024 11:[address] NEEDLE PLACEMEN T (P): MEGFLACA YAMIL [id number] -1950 M Exm Date: JUN 22, 2024@11:48 Req Phys: ANGELA HOLDEN Loc: [facility]/06-22-2024@17:14 Img Loc: CT IMAGING Service: [place] [address] (Case [id number] COMPLETE) CT SCAN FOR NEEDLE PLACEMENT (CT Detailed) CPT:64469 Reason for Study: l pelvic abscess drain Clinical History: Report Status: Verified Date Reported: JUN 22, 2024 Date Verified: JUN 22, 2024 Credit Report Checker E-Sig:/ES/LISA PENDLETON MD Report: PROCEDURES: Placement of [...] anesthesia. Using real-time CT fluoroscopy, a 5 [place] FashionAttitude.comesis catheter was advanced into the collection in the left pelvis. A wire was coiled in the collection. The tract into the collection was dilated to accommodate the 12 [place]anese locking pigtail drainage catheter. There was return [...] Primary Interpreting Staff: LISA PENDLETON MD, RADIOLOGIST (Credit Report Checker) /LISA CARDONA [facility] Jun 21, 2024 06:[address] (AP) ABDOMEN/PE LVIS (P): FLACA WEAVER [id number] -1950 M Exm Date: JUN 21, 2024@18:09 Req Phys: DELIA MARTINEZ Loc: [facility] (Re Img Loc: CT IMAGING Service: [place] [address] (Case [id number] COMPLETE) CT (AP) ABDOMEN/PELVIS W CONTRAST(CT Detailed) CPT:19049 Contrast Media : Non-ionic Iodinated Reason for [...] PLASMA .CREAT EGFR(CKD-E >90 Ref: >=60 Allergies: ([place] only) TERAZOSIN (Mar 13, 2015) Defer to [...] 21, 2024 Date Verified: JUN 21, 2024 Credit Report Checker E-Sig:/ES/CARLOS A CUNNINGHAM DO Report: EXAMINATION: CT [...] Interpreting Staff: CARLOS A CUNNINGHAM DO, RADIOLOGIST (Credit Report Checker) /CARLOS A ROWELL [facility] Pathology Reports: +/- 30 days [...] STATUS: COMPLETED $APHDR Reporting Lab: [facility] [CLIA# [id number]] [place] [address] - - - - - - - [...] - PATHOLOGY REPORT Accession No. [id number] - - - - - - - [...] - PATHOLOGY REPORT Accession No. [id number] - - - - - - - [...] Second circumferential surgical margin, en face; E-F: Concrete Block Molder diverticula; G: Concrete Block Molder section of mesentery; H: Random client service representative section of additional adipose tissue [...] Surgical Pathology Report Performed By: [facility] [CLIA# [id number]] [place] [address] $FTR - - - - - - [...] - - FLACA WEAVER STANDARD FORM 515 ID:[id number] SEX:M :1950 AGE: 73 LOC:51596 ADM:Jun DX:DIVERTICULITIS PCP: Jatinder Cabrera /alexi/ EDUARDO PALOMARES MD STAFF PATHOLOGIST Signed: 07/06/2024 10:40 EDUARDO PALOMARES [facility] Jun 22, 2024 01:15 PM LR MICROBIOLOGY RE PORT: Reporting Lab: [facility] [CLIA# [id number]] [place] [address] Accession [UID]: [id number] [[id number]] Received: Jun 22, 2024@13:38 Collection sample: FLUID Collection date: Jun 22, 2024 13:15 Provider: ANGELA HOLDEN Comment on specimen: LLQ ABSCESS, RECEIVED IN ANAEROBIC TRANSPORT VIAL Test(s) ordered: GRAM STAIN.................... completed: Jun 22, 2024 15:03 CULTURE & SUSCEPTIBILITY...... completed: Jun 25, 2024 * BACTERIOLOGY FINAL REPORT => Jun 25, 2024 10:56 TECH CODE: [id number] GRAM STAIN: DIRECT SMEAR of specimen before [...] Laboratory: Bacteriology Report Performed By: [facility] [CLIA# [id number]] [place] [address] [facility] Jun 22, 2024 01:15 PM LR MICROBIOLOGY RE PORT: Reporting Lab: [facility] [CLIA# [id number]] [place] [address] Accession [UID]: [id number] [[id number]] Received: Jun 22, 2024@13:38 Collection sample: FLUID Collection date: Jun 22, 2024 13:15 Provider: ANGELA HOLDEN Comment on specimen: LLQ ABSCESS, RECEIVED IN ANAEROBIC TRANSPORT VIAL Test(s) ordered: ANAEROBIC CULTURE............. completed: Jun 28, 2024 * BACTERIOLOGY FINAL REPORT => Jun 28, 2024 10:08 TECH CODE: [id number] CULTURE RESULTS: HEAVY GROWTH MIXED ANAEROBES Comment: including the followin+ Bacteroides fragilis 4+ Bacteroides vulgatus 4+ Clostridium innocuum Beta-lactamase negative 4+ Bacteroides caccae 4+ Parvimonas micra 4+ Bacteroides uniformis 4+ Gemella morbillorum 4+ anaerobic small, Gram Positive Rods 4+ Bacteroides thetaiotaomicron Standard workup is now complete. Bacteriology Remark(s): THIS REPORT IS FINAL =--=--=--=--=--=--=--=--=--= --=--=--=--=--=--=--=--=--=- -=--=--=--=--=--=--=-- Performing Laboratory: Bacteriology Report Performed By: [facility] [CLIA# [id number]] [place] [address] [facility] Jun 21, 2024 06:12 PM LR MICROBIOLOGY RE PORT: Reporting Lab: [facility] [CLIA# [id number]] [place] [address] Accession [UID]: [id number] [[id number]] Received: Jun 21, 2024@18:12 Collection sample: BLOOD [...] Laboratory: Bacteriology Report Performed By: [facility] [CLIA# [id number]] [place] [address] [facility] Jun 21, 2024 06:11 PM LR MICROBIOLOGY RE PORT: Reporting Lab: [facility] [CLIA# [id number]] [place] [address] Accession [UID]: [id number] [[id number]] Received: Jun 21, 2024@18:11 Collection sample: BLOOD [...] Laboratory: Bacteriology Report Performed By: [facility] [CLIA# [id number]] [place] [address] [facility] Jun 08, 2024 11:00 AM LR MICROBIOLOGY RE PORT: Reporting Lab: [facility] [CLIA# [id number]] [place] [address] Accession [UID]: [id number] [[id number]] Received: Jun 08, 2024@11:00 Collection sample: URINE Collection date: Jun 08, 2024 11:00 Provider: MARYBETH POWELL Comment on specimen: urine Test(s) ordered: CULTURE & SUSCEPTIBILITY...... completed: Jun 09, 2024 * BACTERIOLOGY FINAL REPORT => Jun 09, 2024 19:12 TECH CODE: [id number] CULTURE RESULTS: ESCHERICHIA COLI - Quantity: >100,000 [...] Laboratory: Bacteriology Report Performed By: [facility] [CLIA# [id number]] [place] [address] [facility]
--- OUTSIDE RECORDS SUMMARY | 2024-07-16 07:42 | XMS_ITS | Encounter Summary ---
Author Name [facility] [place] [facility] [place] Address [address] [place] [address] Care Team Providers Care Bid Analyst Name Role Phone JATINDER BENITEZ Primary Care [...] PART A Sep 29, 2016 PART A [id number] [phone] JUDY WEAVER PATIENT Selected Encounter This section [...] Mar 23, 2016 CLINICAL WARNING [facility] [place] [facility]
--- OUTSIDE RECORDS SUMMARY | 2024-07-16 07:42 | XMS_ITS | Encounter Summary ---
Author Name [facility] Organization [facility] [place] Address [address] [place] [address] Care Team Providers Care Youth Pastor Name Role Phone JATINDER CABRERA Primary Care [...] PART A Sep 29, 2016 PART A [id number] JUDY WEAVER PATIENT Selected Encounter This section includes the information on record at [place] for the Encounter. Date/Time Encounter Type Encounter Description Reason Pro vider Source Jul 03, 2024 08:03 AM Inpatient Visit AMBULATORY N [facility]GER [facility] Encounter Template Text not used by [place] [...] 2024 08:15 AM AMBULATORY - NONE [facility] Active, Pending, and Scheduled Orders [...] TYPE & SCREEN - LAB BLOOD SP [facility] Jun 08, 2024 09:57 AM Laboratory - Chemi stry Order URINALYSIS URINE WC ONCE [facility] Jun 12, 2024 12:00 AM Laboratory - Chemi stry Order BNP PLASMA SP ONCE [facility] Jun 21, 2024 05:45 PM Laboratory - Blood Bank Order TYPE & SCREEN - LAB BLOOD [facility] Jul 03, 2024 12:00 AM Laboratory - Blood Bank Order TYPE & SCREEN - LAB BLOOD [facility] Jul 16, 2024 12:00 AM Laboratory - Chemi stry Order CBC BLOOD SP ONCE [facility] Jul 17, 2024 12:00 AM Laboratory - Chemi stry Order BASIC METABOLIC PANEL+MG PLASMA SP ONCE [facility] Lab Results: +/- 30 days of [...] Range Comment Jul 10, 2024 07:16 AM [facility] PHOSPHORUS Specimen Type: PLASMA No comment entered. Ordering Provider: JUANCARLOS ECOHLS S Report Released Date/Time: Jul 09, 2024 12:23 PM Reporting Lab: [facility] [address] Performing Lab: [facility] [address] PHOSPHORUS 3.0 mg/dL 2.3-4.3 Jul 10, 2024 07:16 AM [facility] BASIC METABOLIC PANEL+MG Specimen Type: PLASMA No comment entered. Ordering Provider: JUANCARLOS ECHOLS S Report Released Date/Time: Jul 09, 2024 12:23 PM Reporting Lab: [facility] [address] Performing Lab: [facility] [address] CREATININE 0.7 mg/dL 0.7-1.2 UREA NITROGEN 27 mg/dL H 8-26 GLUCOSE 104 mg/dL H 70-100 SODIUM 133 mmol/L L 136-145 POTASSIUM 4.3 mmol/L 3.5-5.1 CHLORIDE 102 mmol/L 98-107 CO2 19 mmol/L L 22-29 CALCIUM 10.1 mg/dL 8.4-10.2 MAGNESIUM 1.9 mg/dL 1.6-2.6 ANION GAP 12 mmol/L 5-15 .CREAT EGFR(CKD-EPI) >90 >60 Jul 10, 2024 07:15 AM [facility] CBC Specimen Type: BLOOD No comment entered. Ordering Provider: JUANCARLOS ECHOLS Report Released Date/Time: Jul 09, 2024 12:23 PM Reporting Lab: [facility] [address] Performing Lab: [facility] [address] WBC 18.8 H 4.0-11.0 RBC 5.08 4.60-6.20 HGB 15.9 g/dL 13.5-17.9 HCT 46.8 41.0-54.0 MCV 92.1 fL 80.0-100.0 MCH 31.3 pg 27.0-33.0 MCHC 34.0 g/dL 32.0-37.5 PLT 479 H 150-400 MPV 10.2 fL 9.1-13.0 RDW 13.7 11.5-14.5 Jul 09, 2024 07:08 AM [facility] CBC Specimen Type: BLOOD No comment entered. Ordering Provider: QUYNH WEISS Report Released Date/Time: Jul 08, 2024 06:18 PM Reporting Lab: [facility] [address] Performing Lab: [facility] [address] WBC 15.3 H 4.0-11.0 RBC 4.91 4.60-6.20 HGB 15.1 g/dL 13.5-17.9 HCT 45.7 41.0-54.0 MCV 93.1 fL 80.0-100.0 MCH 30.8 pg 27.0-33.0 MCHC 33.0 g/dL 32.0-37.5 PLT 443 H 150-400 MPV 10.0 fL 9.1-13.0 RDW 13.5 11.5-14.5 Jul 08, 2024 10:50 AM [facility] URINALYSIS Specimen Type: URINE No comment entered. Ordering Provider: KATELYNN PERSON Report Released Date/Time: Jul 08, 2024 08:41 AM Reporting Lab: [facility] [address] Performing Lab: [facility] [address] URINE COLOR YELLOW SPECIFIC GRAVITY >1.050 H [...] NEGATIVE NEGATIVE Jul 08, 2024 09:54 AM [facility] CBC Specimen Type: BLOOD Comment: Specimen received in Lab at: 0952 Ordering Provider: JUANCARLOS ECHOLS Report Released Date/Time: Jul 07, 2024 04:49 PM Reporting Lab: [facility] [address] Performing Lab: [facility] [address] WBC 17.5 H 4.0-11.0 RBC 4.88 4.60-6.20 HGB 14.9 g/dL 13.5-17.9 HCT 45.7 41.0-54.0 MCV 93.6 fL 80.0-100.0 MCH 30.5 pg 27.0-33.0 MCHC 32.6 g/dL 32.0-37.5 PLT 472 H 150-400 MPV 10.2 fL 9.1-13.0 RDW 13.7 11.5-14.5 Jul 08, 2024 09:54 AM [facility] PHOSPHORUS Specimen Type: PLASMA Comment: Specimen received in Lab at: 0952 Ordering Provider: BALAJADIA,MAR IA S Report Released Date/Time: Jul 07, 2024 04:49 PM Reporting Lab: [facility] [address] Performing Lab: [facility] [address] PHOSPHORUS 2.6 mg/dL 2.3-4.3 Jul 08, 2024 09:54 AM [facility] BASIC METABOLIC PANEL+MG Specimen Type: PLASMA Comment: Specimen received in Lab at: 0952 Ordering Provider: JUANCARLOS ECHOLS S Report Released Date/Time: Jul 07, 2024 04:49 PM Reporting Lab: [facility] [address] Performing Lab: [facility] [address] CREATININE 0.9 mg/dL 0.7-1.2 UREA NITROGEN 26 mg/dL 8-26 GLUCOSE 128 mg/dL H 70-100 SODIUM 134 mmol/L L 136-145 POTASSIUM 3.4 mmol/L L 3.5-5.1 CHLORIDE 100 mmol/L 98-107 CO2 24 mmol/L 22-29 CALCIUM 9.8 mg/dL 8.4-10.2 MAGNESIUM 1.8 mg/dL 1.6-2.6 ANION GAP 10 mmol/L 5-15 .CREAT EGFR(CKD-EPI) >90 >60 Jul 07, 2024 02:00 PM [facility] C DIFF PANEL Specimen Type: FECES No comment entered. Ordering Provider: JEVON ZAZUETA Report Released Date/Time: Jul 07, 2024 12:26 PM Reporting Lab: [facility] [address] Performing Lab: [facility] [address] C DIFF TOX B GENE PCR NEGATIVE Negative Jul 07, 2024 07:41 AM [facility] PHOSPHORUS Specimen Type: PLASMA No comment entered. Ordering Provider: JEVON ZAZUETA Report Released Date/Time: Jul 06, 2024 03:44 PM Reporting Lab: [facility] [address] Performing Lab: [facility] [address] PHOSPHORUS 3.1 mg/dL 2.3-4.3 Jul 07, 2024 07:41 AM [facility] BASIC METABOLIC PANEL+MG Specimen Type: PLASMA No comment entered. Ordering Provider: JEVON ZAZUETA Report Released Date/Time: Jul 06, 2024 03:44 PM Reporting Lab: [facility] [address] Performing Lab: [facility] [address] CREATININE 0.9 mg/dL 0.7-1.2 UREA NITROGEN 20 mg/dL 8-26 GLUCOSE 157 mg/dL H 70-100 SODIUM 136 mmol/L 136-145 POTASSIUM 3.7 mmol/L 3.5-5.1 CHLORIDE 102 mmol/L 98-107 CO2 21 mmol/L L 22-29 CALCIUM 9.8 mg/dL 8.4-10.2 MAGNESIUM 1.9 mg/dL 1.6-2.6 ANION GAP 13 mmol/L 5-15 .CREAT EGFR(CKD-EPI) >90 >60 Jul 07, 2024 07:40 AM [facility] CBC Specimen Type: BLOOD No comment entered. Ordering Provider: JEVON ZAZUETA Report Released Date/Time: Jul 06, 2024 03:44 PM Reporting Lab: [facility] [address] Performing Lab: [facility] [address] WBC 21.2 H 4.0-11.0 RBC 5.09 4.60-6.20 HGB 15.9 g/dL 13.5-17.9 HCT 48.3 41.0-54.0 MCV 94.9 fL 80.0-100.0 MCH 31.2 pg 27.0-33.0 MCHC 32.9 g/dL 32.0-37.5 PLT 500 H 150-400 MPV 10.3 fL 9.1-13.0 RDW 13.6 11.5-14.5 Jul 06, 2024 07:21 AM [facility] CBC Specimen Type: BLOOD No comment entered. Ordering Provider: JEVON ZAZUETA Report Released Date/Time: Jul 05, 2024 01:22 PM Reporting Lab: [facility] [address] Performing Lab: [facility] [address] WBC 18.0 H 4.0-11.0 RBC 4.83 4.60-6.20 HGB 14.6 g/dL 13.5-17.9 HCT 45.5 41.0-54.0 MCV 94.2 fL 80.0-100.0 MCH 30.2 pg 27.0-33.0 MCHC 32.1 g/dL 32.0-37.5 PLT 368 150-400 MPV 10.4 fL 9.1-13.0 RDW 13.6 11.5-14.5 Jul 06, 2024 07:21 AM [facility] PHOSPHORUS Specimen Type: PLASMA No comment entered. Ordering Provider: JEVON ZAZUETA Report Released Date/Time: Jul 05, 2024 01:22 PM Reporting Lab: [facility] [address] Performing Lab: [facility] [address] PHOSPHORUS 3.6 mg/dL 2.3-4.3 Jul 06, 2024 07:21 AM [facility] BASIC METABOLIC PANEL+MG Specimen Type: PLASMA No comment entered. Ordering Provider: JEVON ZAZUETA Report Released Date/Time: Jul 05, 2024 01:22 PM Reporting Lab: [facility] [address] Performing Lab: [facility] [address] CREATININE 0.7 mg/dL 0.7-1.2 UREA NITROGEN 12 mg/dL 8-26 GLUCOSE 108 mg/dL H 70-100 SODIUM 138 mmol/L 136-145 POTASSIUM 3.4 mmol/L L 3.5-5.1 CHLORIDE 104 mmol/L 98-107 CO2 20 mmol/L L 22-29 CALCIUM 9.3 mg/dL 8.4-10.2 MAGNESIUM 1.9 mg/dL 1.6-2.6 ANION GAP 14 mmol/L 5-15 .CREAT EGFR(CKD-EPI) >90 >60 Jul 05, 2024 07:17 AM [facility] MAGNESIUM Specimen Type: PLASMA No comment entered. Ordering Provider: JUANCARLOS ECHOLS S Report Released Date/Time: Jul 04, 2024 09:39 AM Reporting Lab: [facility] [address] Performing Lab: [facility] [address] MAGNESIUM 2.0 mg/dL 1.6-2.6 Jul 05, 2024 07:17 AM [facility] PHOSPHORUS Specimen Type: PLASMA No comment entered. Ordering Provider: JUANCARLOS ECHOLS S Report Released Date/Time: Jul 04, 2024 09:39 AM Reporting Lab: [facility] [address] Performing Lab: [facility] [address] PHOSPHORUS 2.0 mg/dL L 2.3-4.3 Jul 05, 2024 07:17 AM [facility] BASIC METABOLIC PANEL+MG Specimen Type: PLASMA No comment entered. Ordering Provider: JUANCARLOS ECHOLS S Report Released Date/Time: Jul 04, 2024 09:39 AM Reporting Lab: [facility] [address] Performing Lab: [facility] [address] CREATININE 0.7 mg/dL 0.7-1.2 UREA NITROGEN 12 mg/dL 8-26 GLUCOSE 84 mg/dL 70-100 SODIUM 135 mmol/L L 136-145 POTASSIUM 3.8 mmol/L 3.5-5.1 CHLORIDE 104 mmol/L 98-107 CO2 24 mmol/L 22-29 CALCIUM 9.3 mg/dL 8.4-10.2 MAGNESIUM 2.0 mg/dL 1.6-2.6 ANION GAP 7 mmol/L 5-15 .CREAT EGFR(CKD-EPI) >90 >60 Jul 05, 2024 07:16 AM [facility] CBC Specimen Type: BLOOD No comment entered. Ordering Provider: JUANCARLOS ECHOLS S Report Released Date/Time: Jul 04, 2024 09:39 AM Reporting Lab: [facility] [address] Performing Lab: [facility] [address] WBC 18.3 H 4.0-11.0 RBC 4.49 L 4.60-6.20 HGB 14.1 g/dL 13.5-17.9 HCT 43.4 41.0-54.0 MCV 96.7 fL 80.0-100.0 MCH 31.4 pg 27.0-33.0 MCHC 32.5 g/dL 32.0-37.5 PLT 317 150-400 MPV 10.0 fL 9.1-13.0 RDW 13.9 11.5-14.5 Jul 04, 2024 07:17 AM [facility] BASIC METABOLIC PANEL+MG Specimen Type: PLASMA No comment entered. Ordering Provider: GABINO CAMERON Report Released Date/Time: Jul 03, 2024 06:31 PM Reporting Lab: [facility] [address] Performing Lab: [facility] [address] CREATININE 0.7 mg/dL 0.7-1.2 UREA NITROGEN 16 mg/dL 8-26 GLUCOSE 129 mg/dL H 70-100 SODIUM 137 mmol/L 136-145 POTASSIUM 3.7 mmol/L 3.5-5.1 CHLORIDE 107 mmol/L 98-107 CO2 22 mmol/L 22-29 CALCIUM 9.0 mg/dL 8.4-10.2 MAGNESIUM 1.9 mg/dL 1.6-2.6 ANION GAP 8 mmol/L 5-15 .CREAT EGFR(CKD-EPI) >90 >60 Jul 04, 2024 07:17 AM [facility] PHOSPHORUS Specimen Type: PLASMA No comment entered. Ordering Provider: GABINO CAMERON Report Released Date/Time: Jul 03, 2024 06:31 PM Reporting Lab: [facility] [address] Performing Lab: [facility] [address] PHOSPHORUS 2.8 mg/dL 2.3-4.3 Jul 04, 2024 07:16 AM [facility] CBC Specimen Type: BLOOD No comment entered. Ordering Provider: GABINO CAMERON Report Released Date/Time: Jul 03, 2024 06:31 PM Reporting Lab: [facility] [address] Performing Lab: [facility] [address] WBC 20.6 H 4.0-11.0 RBC 4.63 4.60-6.20 HGB 14.2 g/dL 13.5-17.9 HCT 43.4 41.0-54.0 MCV 93.7 fL 80.0-100.0 MCH 30.7 pg 27.0-33.0 MCHC 32.7 g/dL 32.0-37.5 PLT 329 150-400 MPV 10.4 fL 9.1-13.0 RDW 13.8 11.5-14.5 Jul 04, 2024 07:16 AM [facility] CBC & DIFF Specimen Type: BLOOD Comment: Manual Differential Performed Ordering Provider: GABINO CAMERON Report Released Date/Time: Jul 03, 2024 06:31 PM Reporting Lab: [facility] [address] Performing Lab: [facility] [address] WBC 20.6 H 4.0-11.0 RBC 4.63 4.60-6.20 [...] MORPHOLOGY PRESENT Jul 04, 2024 07:15 AM [facility] BNP Specimen Type: PLASMA No comment entered. Ordering Provider: GABINO CAMERON Report Released Date/Time: Jul 03, 2024 06:31 PM Reporting Lab: [facility] [address] Performing Lab: [facility] [address] BNP 292 pg/mL H <99 Jul 03, 2024 10:32 PM [facility] FINGERSTICK GLUCOSE Specimen Type: BLOOD Comment: Save Result Nurse Notified Ordering Provider: KATELYNN PERSON Report Released Date/Time: Jul 03, 2024 10:50 PM Reporting Lab: [facility] [address] Performing Lab: [facility] [address] FINGERSTICK GLUCOSE 126 mg/dL H 70-100 Jul 03, 2024 05:33 PM [facility] FINGERSTICK GLUCOSE Specimen Type: BLOOD Comment: Save Result Nurse Notified Ordering Provider: KATELYNN PERSON Report Released Date/Time: Jul 03, 2024 05:46 PM Reporting Lab: [facility] [address] Performing Lab: [facility] [address] FINGERSTICK GLUCOSE 141 mg/dL H 70-100 Jul 03, 2024 02:31 PM [facility] POC ABG/ELECTROLYTES Specimen Type: ARTERIAL BLOOD Comment: FIO2 = 97% Patient Temp: 36.0 C Sample Type = ARTERIAL Ordering Provider: MAZIN ARREDONDO Report Released Date/Time: Jul 03, 2024 01:48 PM Reporting Lab: [facility] [address] Performing Lab: [facility] [address] POC PH 7.387 7.35-7.45 POC PCO2 34.4 [...] H 80.0-105.0 Jul 03, 2024 01:05 PM [facility] POC ABG/ELECTROLYTES Specimen Type: ARTERIAL BLOOD Comment: FIO2 = 53% Patient Temp: 36.2 C Sample Type = ARTERIAL Ordering Provider: MAZIN ARREDONDO Report Released Date/Time: Jul 03, 2024 01:48 PM Reporting Lab: [facility] [address] Performing Lab: [facility] [address] POC PH 7.280 L 7.35-7.45 POC PCO2 [...] mm[Hg] 80.0-105.0 Jul 03, 2024 06:15 AM [facility] URINALYSIS Specimen Type: URINE No comment entered. Ordering Provider: MARYBETH POWELL Report Released Date/Time: Jun 12, 2024 04:01 PM Reporting Lab: [facility] [address] Performing Lab: [facility] [address] URINE COLOR YELLOW SPECIFIC GRAVITY 1.031 1.003-1.03 [...] 250 NEGATIVE Jul 03, 2024 06:13 AM [facility] CBC Specimen Type: BLOOD No comment entered. Ordering Provider: MARYBETH POWELL Report Released Date/Time: Jun 12, 2024 03:59 PM Reporting Lab: [facility] [address] Performing Lab: [facility] [address] WBC 15.8 H 4.0-11.0 RBC 5.11 4.60-6.20 HGB 16.1 g/dL 13.5-17.9 HCT 49.1 41.0-54.0 MCV 96.1 fL 80.0-100.0 MCH 31.5 pg 27.0-33.0 MCHC 32.8 g/dL 32.0-37.5 PLT 357 150-400 MPV 9.8 fL 9.1-13.0 RDW 13.7 11.5-14.5 Jun 24, 2024 09:50 AM [facility] BASIC METABOLIC PANEL+MG Specimen Type: PLASMA Comment: Specimen received in Lab at: 0948 Ordering Provider: JEVON ZAZUETA Report Released Date/Time: Jun 23, 2024 06:07 PM Reporting Lab: [facility] [address] Performing Lab: [facility] [address] CREATININE 0.8 mg/dL 0.7-1.2 UREA NITROGEN 13 mg/dL 8-26 GLUCOSE 135 mg/dL H 70-100 SODIUM 135 mmol/L L 136-145 POTASSIUM 3.6 mmol/L 3.5-5.1 CHLORIDE 103 mmol/L 98-107 CO2 24 mmol/L 22-29 CALCIUM 9.2 mg/dL 8.4-10.2 MAGNESIUM 1.9 mg/dL 1.6-2.6 ANION GAP 8 mmol/L 5-15 .CREAT EGFR(CKD-EPI) >90 >60 Jun 24, 2024 09:50 AM [facility] CBC Specimen Type: BLOOD Comment: Specimen received in Lab at: 0948 Ordering Provider: JEVON ZAZUETA Report Released Date/Time: Jun 23, 2024 06:07 PM Reporting Lab: [facility] [address] Performing Lab: [facility] [address] WBC 15.5 H 4.0-11.0 RBC 4.93 4.60-6.20 HGB 15.2 g/dL 13.5-17.9 HCT 46.5 41.0-54.0 MCV 94.3 fL 80.0-100.0 MCH 30.8 pg 27.0-33.0 MCHC 32.7 g/dL 32.0-37.5 PLT 223 150-400 MPV 11.4 fL 9.1-13.0 RDW 13.9 11.5-14.5 Jun 23, 2024 07:52 AM [facility] COMPREHENSIVE METABOLIC PANEL+MG Specimen Type: PLASMA No comment entered. Ordering Provider: JEVON ZAZUETA Report Released Date/Time: Jun 22, 2024 05:51 PM Reporting Lab: [facility] [address] Performing Lab: [facility] [address] CREATININE 0.7 mg/dL 0.7-1.2 UREA NITROGEN 16 [...] >90 >60 Jun 23, 2024 07:52 AM [facility] CBC & DIFF Specimen Type: BLOOD Comment: Automated Differential Performed Ordering Provider: JEVON ZAZUETA Report Released Date/Time: Jun 22, 2024 05:51 PM Reporting Lab: [facility] [address] Performing Lab: [facility] [address] WBC 14.9 H 4.0-11.0 RBC 5.09 4.60-6.20 [...] 0.1 0.0-0.1 Jun 22, 2024 06:10 PM [facility] COMPREHENSIVE METABOLIC PANEL+MG Specimen Type: PLASMA No comment entered. Ordering Provider: JEVON ZAZUETA Report Released Date/Time: Jun 22, 2024 05:51 PM Reporting Lab: [facility] [address] Performing Lab: [facility] [address] CREATININE 0.7 mg/dL 0.7-1.2 UREA NITROGEN 17 [...] >90 >60 Jun 22, 2024 06:10 PM [facility] CBC Specimen Type: BLOOD No comment entered. Ordering Provider: JEVON ZAZUETA Report Released Date/Time: Jun 22, 2024 05:51 PM Reporting Lab: [facility] [address] Performing Lab: [facility] [address] WBC 16.9 H 4.0-11.0 RBC 5.28 4.60-6.20 HGB 16.9 g/dL 13.5-17.9 HCT 50.4 41.0-54.0 MCV 95.5 fL 80.0-100.0 MCH 32.0 pg 27.0-33.0 MCHC 33.5 g/dL 32.0-37.5 PLT 223 150-400 MPV 10.9 fL 9.1-13.0 RDW 14.0 11.5-14.5 Jun 21, 2024 06:48 PM [facility] URINALYSIS Specimen Type: URINE No comment entered. Ordering Provider: DELIA MARTINEZ Report Released Date/Time: Jun 21, 2024 05:45 PM Reporting Lab: [facility] [address] Performing Lab: [facility] [address] URINE COLOR YELLOW SPECIFIC GRAVITY 1.041 H [...] 500 NEGATIVE Jun 21, 2024 05:34 PM [facility] POC CREATININE Specimen Type: BLOOD No comment entered. Ordering Provider: DELIA MARTINEZ Report Released Date/Time: Jun 21, 2024 06:07 PM Reporting Lab: [facility] [address] Performing Lab: [facility] [address] POC CREATININE 1.1 mg/dL 0.6-1.3 Jun 21, 2024 05:30 PM [facility] POC ABG/LACTATE Specimen Type: VENOUS BLOOD No comment entered. Ordering Provider: DELIA MARTINEZ Report Released Date/Time: Jun 21, 2024 06:07 PM Reporting Lab: [facility] [address] Performing Lab: [facility] [address] POC PH 7.470 H 7.31-7.41 POC PCO2 31.2 mm[Hg] L 41.00-51 .0 0 POC PO2 46 mm[Hg] H 35.0-40.0 POC TCO2 24 mmol/L 24.0-29.0 POC HCO3 22.7 mmol/L L 23.0-28.0 POC BE ECT -1 mmol/L POC SO2 85 H 70-75 POC LACTATE 1.85 mmol/L 0.90-1.70 Jun 21, 2024 05:24 PM [facility] PROTHROMBIN TIME/INR Specimen Type: PLASMA No comment entered. Ordering Provider: DELIA MARTINEZ Report Released Date/Time: Jun 21, 2024 05:30 PM Reporting Lab: [facility] [address] Performing Lab: [facility] [address] .INR 1.2 H 0.8-1.1 .PT 13.9 s H 9.4-12.5 Jun 21, 2024 05:24 PM [facility] LIPASE Specimen Type: PLASMA No comment entered. Ordering Provider: DELIA MARTINEZ Report Released Date/Time: Jun 21, 2024 05:30 PM Reporting Lab: [facility] [address] Performing Lab: [facility] [address] LIPASE 32 U/L <60 Jun 21, 2024 05:24 PM [facility] EXTRA GOLD GEL TUBE Specimen Type: SERUM No comment entered. Ordering Provider: DELIA MARTINEZ Report Released Date/Time: Jun 21, 2024 05:41 PM Reporting Lab: [facility] [address] Performing Lab: [facility] [address] EXTRA GOLD GEL TUBE RECEIVED Jun 21, 2024 05:24 PM [facility] COMPREHENSIVE METABOLIC PANEL+MG Specimen Type: PLASMA No comment entered. Ordering Provider: DELIA MARTINEZ Report Released Date/Time: Jun 21, 2024 05:30 PM Reporting Lab: [facility] [address] Performing Lab: [facility] [address] CREATININE 0.9 mg/dL 0.7-1.2 UREA NITROGEN 29 [...] mg/dL <0.5 Jun 21, 2024 05:24 PM [facility] CBC & DIFF Specimen Type: BLOOD Comment: Manual Differential Performed Ordering Provider: DELIA MARTINEZ Report Released Date/Time: Jun 21, 2024 05:30 PM Reporting Lab: [facility] [address] Performing Lab: [facility] [address] WBC 21.3 H 4.0-11.0 RBC 5.48 4.60-6.20 [...] MORPHOLOGY PRESENT Jun 08, 2024 10:59 AM [facility] PROTHROMBIN TIME/INR Specimen Type: PLASMA No comment entered. Ordering Provider: MARYBETH POWELL Report Released Date/Time: May 28, 2024 09:02 AM Reporting Lab: [facility] [address] Performing Lab: [facility] [address] .INR 1.0 0.8-1.1 .PT 11.8 s 9.4-12.5 Jun 08, 2024 10:59 AM [facility] CBC Specimen Type: BLOOD No comment entered. Ordering Provider: MARYBETH POWELL Report Released Date/Time: May 28, 2024 09:02 AM Reporting Lab: [facility] [id number] Performing Lab: [facility] [id number] WBC 16.1 H 4.0-11.0 RBC 5.02 4.60-6.20 HGB 16.0 g/dL 13.5-17.9 HCT 47.1 41.0-54.0 MCV 93.8 fL 80.0-100.0 MCH 31.9 pg 27.0-33.0 MCHC 34.0 g/dL 32.0-37.5 PLT 228 150-400 MPV 10.3 fL 9.1-13.0 RDW 14.6 H 11.5-14.5 Jun 08, 2024 10:59 AM [facility] HEMOGLOBIN A1C Specimen Type: BLOOD Comment: [...] May 28, 2024 09:02 AM Reporting Lab: [facility] [phone] Performing Lab: [facility] [phone] HEMOGLOBIN A1C 4.9 4.0-6.0 Jun 08, 2024 10:59 AM [facility] BASIC METABOLIC PANEL+MG Specimen Type: PLASMA No comment entered. Ordering Provider: MARYBETH POWELL Report Released Date/Time: May 28, 2024 09:02 AM Reporting Lab: [facility] [phone] Performing Lab: [facility] [address] CREATININE 0.9 mg/dL 0.7-1.2 UREA NITROGEN 15 [...] Source Jul 03, 2024 11:26 PM 3 [facility] Jul 03, 2024 10:33 PM 5 [facility] Jul 03, 2024 08:26 PM 3 [facility] Jul 03, 2024 07:58 PM 5 [facility] Jul 03, 2024 07:25 PM 3 [facility] Social History: Smoking Status (Most current) [...] 15, 2024 08:30 AM VA-TOBACCO FORMER USER [facility] Tobacco Use History This section includes a history of the smoking, or tobacco-related health factors, that were collected on or before the date of the Encounter. The data comes from the [place] facility where the Encounter took place. Date/Time Smoking Status/Tobacco Use Comment F acility May 15, 2024 08:30 AM VA-TOBACCO QUIT 15 YRS OR MORE [facility] May 06, 2023 11:30 AM VA-TOBACCO FORMER USER [facility] May 06, 2023 11:30 AM VA-TOBACCO QUIT 15 YRS OR MORE [facility] Jun 04, 2022 09:00 AM VA-TOBACCO FORMER USER [facility] Jun 04, 2022 09:00 AM VA-TOBACCO QUIT 15 YRS OR MORE [facility] Jul 10, 2021 08:00 AM VA-TOBACCO FORMER USER [facility] Jul 10, 2021 08:00 AM VA-TOBACCO QUIT 5 TO < 15 YRS [facility] May 23, 2020 08:30 AM VA-TOBACCO FORMER USER [facility] May 23, 2020 08:30 AM VA-TOBACCO QUIT 5 TO < 15 YRS [facility] Mar 20, 2019 04:03 PM VA-TOBACCO FORMER USER [facility] Mar 20, 2019 04:03 PM VA-TOBACCO QUIT 5 TO < 15 YRS [facility] Mar 21, 2018 08:13 AM FORMER TOBACCO USER 7Y OR GREATE R [facility] Feb 24, 2017 09:24 AM FORMER TOBACCO USER 7Y OR GREATE R [facility] January 07, 2016 08:01 AM FORMER TOBACCO USE >1Y <7Y [facility] Feb 03, 2015 07:58 AM FORMER TOBACCO USE <1Y [facility] Feb 26, 2014 08:41 AM CURRENT TOBACCO USER [facility] May 13, 2011 01:45 PM CURRENT TOBACCO USER [facility] Advance Directives: All historical and current [...] Mar 23, 2016 CLINICAL WARNING [facility] Radiology Reports: +/- 30 [...] VIEWS LILIAM Mustafa [place] LAT: FLACA WEAVER YAMIL [id number] -[id number] M Exm Date: JUL 08, 2024@10:09 Req Phys: KATELYNN PEROSN Loc: [facility]/07-08-2024@11:49 Img Loc: MAIN X-RAY Service: [place] [address] (Case 24 COMPLETE) CHEST 2 VIEWS PA AND LAT (RAD Detailed) CPT:07630 Reason for Study: Uptrending WBC, POD 5 Clinical History: [place] IS NOT under investigation for COVID-19 or is COVID-19 negative POD 5, work up for uptrending wbc Responsible provider name and phone number to notify for critical findings if other than user placing the order and pager listed below: User placing orders pager: Katelynn Person LAST CREATININE 0.9 (07/07/24) Report Status: Verified Date Reported: JUL 08, 2024 Date Verified: JUL 08, 2024 [employer] E-Sig: Report: CHEST 2 VIEWS PA AND [...] cardiopulmonary disease. READING PHYSICIAN: Sarbjit Vaughn M.D. -[phone] 07/08/2024 12:[address] [facility] National Teleradiology Program [phone] (For Medical Practitioner Use Only) Attention Patients / Veterans: If you have questions or concerns about these test results, please contact your ordering provider or primary care team. Primary Interpreting Staff: RADIOLOGY,OUTSIDE SERVICE, Staff Physician / RADIOLOGY,OUTSIDE SERVICE [facility] Jul 08, 2024 10:[address] (AP) ABDOMEN/PE LVIS W CONTRAST: MEGFLACADARCI LOBO [id number] -1950 M Exm Date: JUL 08, 2024@10:00 Req Phys: KATELYNN PERSON Pat Loc: 2KG/07-08-2024@12:07 Img Loc: CT IMAGING Service: [place] [address] (Case [id number] COMPLETE) CT (AP) ABDOMEN/PELVIS W CONTRAST(CT Detailed) CPT:15777 Contrast Media : Non-ionic Iodinated Reason for [...] PLASMA .CREAT EGFR(CKD-E >90 Ref: >=60 Allergies: ([place] only) TERAZOSIN (Mar 13, 2015) Report Status: Verified Date Reported: JUL 08, 2024 Date Verified: JUL 08, 2024 [employer] E-Sig: Report: CT (AP) ABDOMEN/PELVIS W CONTRAST [...] as noted above READING PHYSICIAN: Celestino Blanc -[phone] 07/08/2024 13:[address] [facility] ZoomCareradiology Program [phone] (For Medical Practitioner Use Only) Attention Patients / Veterans: If you have questions or concerns about these test results, please contact your ordering provider or primary care team. Primary Interpreting Staff: RADIOLOGY,OUTSIDE SERVICE, Staff Physician / RADIOLOGY,OUTSIDE SERVICE [facility] Jun 22, 2024 11:49 AM ABSCESS DRAIN PLAC EMENT PERITONEAL (P): FLACA WEAVER [id number] -1950 M Exm Date: JUN 22, 2024@11:49 Req Phys: ANGELA HOLDEN Loc: [facility]06-22-2024@17:14 Img Loc: INTERVENTIONAL RADIOLOGY Service: [place] [address] (Case [id number] COMPLETE) IR PERITONEAL/RETROPERITONEAL PER(ANI Detailed) CPT:78175 Reason for Study: diverticulitis with abscess (Case 3570 COMPLETE) IR MOD SEDATION 10-22 MIN (ANI Detailed) CPT:38433 Clinical History: IS NOT under investigation for COVID-19 or is COVID-19 negative 73 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 please place abscess drain. Contact number for responsible provider who can be reached for any questions or notifications of critical findings: [phone] n/a LAST CREATININE 0.9 (06/21/24) Report Status: Verified Date Reported: JUN 22, 2024 Date Verified: JUN 22, 2024 [employer] E-Sig:/ES/LISA PENDLETON MD Report: PROCEDURES: Placement of [...] Using real-time CT fluoroscopy, a 5 Russian Sck[employer]esis catheter was advanced into the collection in [...] Primary Interpreting Staff: LISA PENDLETON MD, RADIOLOGIST ([employer]) /JRT LISA PENDLETON [facility] Jun 22, 2024 11:[address] NEEDLE PLACEMEN T (P): MEGFLACA YAMIL [id number] -1950 M Exm Date: JUN 22, 2024@11:48 Req Phys: ANGELA HOLDEN Loc: 2KC/06-22-2024@17:14 Img Loc: CT IMAGING Service: [place] [address] (Case [id number] COMPLETE) CT SCAN FOR NEEDLE PLACEMENT (CT Detailed) CPT:55957 Reason for Study: l pelvic abscess drain Clinical History: Report Status: Verified Date Reported: JUN 22, 2024 Date Verified: JUN 22, 2024 [employer] E-Sig:/ES/LISA PENDLETON MD Report: PROCEDURES: Placement of [...] Using real-time CT fluoroscopy, a 5 Russian [employer] centesis catheter was advanced into the collection [...] Primary Interpreting Staff: LISA PENDLETON MD, RADIOLOGIST ([employer]) /JRLISA [facility] Jun 21, 2024 06:[address] (AP) ABDOMEN/PE LVIS (P): FLACA WEAVER [id number] -1950 M Exm Date: JUN 21, 2024@18:09 Req Phys: DELIA MARTINEZ Loc: [facility] EMERGENCY DEPT WALK-IN (Re Img Loc: CT IMAGING Service: [place] [address] (Case [id number] COMPLETE) CT (AP) ABDOMEN/PELVIS W CONTRAST(CT Detailed) CPT:62458 Contrast Media : Non-ionic Iodinated Reason for [...] PLASMA .CREAT EGFR(CKD-E >90 Ref: >=60 Allergies: ([place] only) TERAZOSIN (Mar 13, 2015) Defer to [...] 21, 2024 Date Verified: JUN 21, 2024 [employer] E-Sig:/ALEXI/CARLOS A CUNNINGHAM DO Report: EXAMINATION: CT [...] Interpreting Staff: CARLOS A CUNNINGHAM DO, RADIOLOGIST ([employer]) /CARLOS A ROWELL [facility] Pathology Reports: +/- 30 days of [...] COSIGNER: URGENCY: STATUS: COMPLETED $APHDR Reporting Lab: [facility] [CLIA# [id number]] [place] [address] - - - - - - - [...] - PATHOLOGY REPORT Accession No. [id number] - - - - - - - [...] - PATHOLOGY REPORT Accession No. [id number] - - - - - - - [...] Second circumferential surgical margin, en face; E-F: Biomass Plant Technician diverticula; G: Biomass Plant Technician section of mesentery; H: Random field representative/health education section of additional adipose tissue fragment. SS. [...] Performing Laboratory: Surgical Pathology Report Performed By: [facility] [CLIA# [id number]] [place] [address] $FTR - - - - - - [...] - - FLACA WEAVER STANDARD FORM 515 ID:[id number] SEX:M :1950 AGE: 73 LOC:62053 ADM:Jun DX:DIVERTICULITIS PCP: Jatinder Cabrera /alexi/ EDUARDO PALOMARES MD STAFF PATHOLOGIST Signed: 07/06/2024 10:40 EDUARDO PALOMARES [facility] Jun 22, 2024 01:15 PM LR MICROBIOLOGY RE PORT: Reporting Lab: [facility] [CLIA# [id number]] [place] [address] Accession [UID]: [id number] [[id number]] Received: Jun 22, 2024@13:38 Collection sample: FLUID Collection date: Jun 22, 2024 13:15 Provider: ANGELA HOLDEN Comment on specimen: LLQ ABSCESS, RECEIVED IN ANAEROBIC TRANSPORT VIAL Test(s) ordered: GRAM STAIN.................... completed: Jun 22, 2024 15:03 CULTURE & SUSCEPTIBILITY...... completed: Jun 25, 2024 * BACTERIOLOGY FINAL REPORT => Jun 25, 2024 10:56 TECH CODE: [id number] GRAM STAIN: DIRECT SMEAR of specimen before [...] -=--=--=--=--=--=--=-- Performing Laboratory: Bacteriology Report Performed By: [facility] [CLIA# [id number]] [place] [address] [facility] Jun 22, 2024 01:15 PM LR MICROBIOLOGY RE PORT: Reporting Lab: [facility] [CLIA# [id number]] [place] [address] Accession [UID]: [id number] [[id number]] Received: Jun 22, 2024@13:38 Collection sample: FLUID Collection date: Jun 22, 2024 13:15 Provider: ANGELA HOLDEN Comment on specimen: LLQ ABSCESS, RECEIVED IN ANAEROBIC TRANSPORT VIAL Test(s) ordered: ANAEROBIC CULTURE............. completed: Jun 28, 2024 * BACTERIOLOGY FINAL REPORT => Jun 28, 2024 10:08 TECH CODE: [id number] CULTURE RESULTS: HEAVY GROWTH MIXED ANAEROBES Comment: including the followin+ Bacteroides fragilis 4+ Bacteroides vulgatus 4+ Clostridium innocuum Beta-lactamase negative 4+ Bacteroides caccae 4+ Parvimonas micra 4+ Bacteroides uniformis 4+ Gemella morbillorum 4+ anaerobic small, Gram Positive Rods 4+ Bacteroides thetaiotaomicron Standard workup is now complete. Bacteriology Remark(s): THIS REPORT IS FINAL =--=--=--=--=--=--=--=--=--= --=--=--=--=--=--=--=--=--=- -=--=--=--=--=--=--=-- Performing Laboratory: Bacteriology Report Performed By: [facility] [CLIA# [id number]] [place] [address] [facility] Jun 21, 2024 06:12 PM LR MICROBIOLOGY RE PORT: Reporting Lab: [facility] [CLIA# [id number]] [place] [address] Accession [UID]: [id number] [[id number]] Received: Jun 21, 2024@18:12 Collection sample: BLOOD [...] -=--=--=--=--=--=--=-- Performing Laboratory: Bacteriology Report Performed By: [facility] [CLIA# [id number]] [place] [address] [facility] Jun 21, 2024 06:11 PM LR MICROBIOLOGY RE PORT: Reporting Lab: [facility] [CLIA# [id number]] [place] [address] Accession [UID]: [id number] [[id number]] Received: Jun 21, 2024@18:11 Collection sample: BLOOD [...] -=--=--=--=--=--=--=-- Performing Laboratory: Bacteriology Report Performed By: [facility] [CLIA# [id number]] [place] [address] [facility] Jun 08, 2024 11:00 AM LR MICROBIOLOGY RE PORT: Reporting Lab: [facility] [CLIA# [id number]] [place] [address] Accession [UID]: [id number] [[id number]] Received: Jun 08, 2024@11:00 Collection sample: URINE Collection date: Jun 08, 2024 11:00 Provider: MARYBETH POWELL Comment on specimen: urine Test(s) ordered: CULTURE & SUSCEPTIBILITY...... completed: Jun 09, 2024 * BACTERIOLOGY FINAL REPORT => Jun 09, 2024 19:12 TECH CODE: [id number] CULTURE RESULTS: ESCHERICHIA COLI - Quantity: >100,000 [...] -=--=--=--=--=--=--=-- Performing Laboratory: Bacteriology Report Performed By: [facility] [CLIA# [id number]] [place] [address] [facility]
--- OUTSIDE RECORDS SUMMARY | 2024-07-16 07:43 | XMS_ITS ---
[place] DAILY HOSPITALIZATION DATA [facility]CS Encounter Summary Created on: July 16, 2024 MEG FLACA YAMIL : 1950 Sex: Male Author Name [facility] [place] [facility] [place] Address [address] [place] [address] Care Team Providers Care Research Manufacturing Operator Name Role Phone JATINDER CABRERA Primary [...] PART A Sep 29, 2016 PART A [id number] [phone] JUDY WEAVER PATIENT Selected Encounter This section includes the information on record at [place] for the Encounter. Date/Time Encounter Type Encounter Description Reason Pro vider Source Jul 04, 2024 08:51 AM Inpatient Visit DAILY HOSPITALIZATION DATA LINDA [...] 2024 08:15 AM AMBULATORY - NONE [place] [facility] Active, Pending, and Scheduled Orders [...] Order TYPE & SCREEN - LAB BLOOD [facility] Jul 16, 2024 12:00 AM Laboratory [...] Jul 09, 2024 12:23 PM Reporting Lab: [facility] [address] Performing Lab: [facility] [address] PHOSPHORUS 3.0 mg/dL 2.3-4.3 Jul 10, 2024 07:16 AM [facility] BASIC METABOLIC PANEL+MG Specimen Type: PLASMA No comment entered. Ordering Provider: JUANCARLOS ECHOLS S Report Released Date/Time: Jul 09, 2024 12:23 PM Reporting Lab: [facility] [address] Performing Lab: [facility] [address] CREATININE 0.7 mg/dL 0.7-1.2 UREA NITROGEN 27 [...] Jul 09, 2024 12:23 PM Reporting Lab: [facility] [address] Performing Lab: [facility] [address] WBC 18.8 H 4.0-11.0 RBC 5.08 4.60-6.20 [...] Jul 08, 2024 06:18 PM Reporting Lab: [facility] [address] Performing Lab: [facility] [address] WBC 15.3 H 4.0-11.0 RBC 4.91 4.60-6.20 [...] Jul 08, 2024 08:41 AM Reporting Lab: [facility] [address] Performing Lab: [facility] [address] URINE COLOR YELLOW SPECIFIC GRAVITY >1.050 H [...] Jul 07, 2024 04:49 PM Reporting Lab: [facility] [address] Performing Lab: [facility] [address] WBC 17.5 H 4.0-11.0 RBC 4.88 4.60-6.20 [...] Jul 07, 2024 04:49 PM Reporting Lab: [facility] [address] Performing Lab: [facility] [address] PHOSPHORUS 2.6 mg/dL 2.3-4.3 Jul 08, 2024 09:54 AM [facility] BASIC METABOLIC PANEL+MG Specimen Type: PLASMA Comment: Specimen received in Lab at: 0952 Ordering Provider: JUANCARLOS ECHOLS S Report Released Date/Time: Jul 07, 2024 04:49 PM Reporting Lab: [facility] [address] Performing Lab: [facility] [address] CREATININE 0.9 mg/dL 0.7-1.2 UREA NITROGEN 26 [...] Jul 07, 2024 12:26 PM Reporting Lab: [facility] [address] Performing Lab: [facility] [address] C DIFF TOX B GENE PCR NEGATIVE Negative Jul 07, 2024 07:41 AM [facility] PHOSPHORUS Specimen Type: PLASMA No comment entered. Ordering Provider: JEVON ZAZUETA Report Released Date/Time: Jul 06, 2024 03:44 PM Reporting Lab: [facility] [address] Performing Lab: [facility] [address] PHOSPHORUS 3.1 mg/dL 2.3-4.3 Jul 07, 2024 07:41 AM [facility] BASIC METABOLIC PANEL+MG Specimen Type: PLASMA No comment entered. Ordering Provider: JEVON ZAZUETA Report Released Date/Time: Jul 06, 2024 03:44 PM Reporting Lab: [facility] [address] Performing Lab: [facility] [address] CREATININE 0.9 mg/dL 0.7-1.2 UREA NITROGEN 20 [...] Jul 06, 2024 03:44 PM Reporting Lab: [facility] [address] Performing Lab: [facility] [address] WBC 21.2 H 4.0-11.0 RBC 5.09 4.60-6.20 [...] Jul 05, 2024 01:22 PM Reporting Lab: [facility] [address] Performing Lab: [facility] [address] WBC 18.0 H 4.0-11.0 RBC 4.83 4.60-6.20 [...] Jul 05, 2024 01:22 PM Reporting Lab: [facility] [address] Performing Lab: [facility] [address] PHOSPHORUS 3.6 mg/dL 2.3-4.3 Jul 06, 2024 07:21 AM [facility] BASIC METABOLIC PANEL+MG Specimen Type: PLASMA No comment entered. Ordering Provider: JEVON ZAZUETA Report Released Date/Time: Jul 05, 2024 01:22 PM Reporting Lab: [facility] [address] Performing Lab: [facility] [address] CREATININE 0.7 mg/dL 0.7-1.2 UREA NITROGEN 12 [...] Jul 04, 2024 09:39 AM Reporting Lab: [facility] [address] Performing Lab: [facility] [address] MAGNESIUM 2.0 mg/dL 1.6-2.6 Jul 05, 2024 07:17 AM [facility] PHOSPHORUS Specimen Type: PLASMA No comment entered. Ordering Provider: JUANCARLOS ECHOLS S Report Released Date/Time: Jul 04, 2024 09:39 AM Reporting Lab: [facility] [address] Performing Lab: [facility] [address] PHOSPHORUS 2.0 mg/dL L 2.3-4.3 Jul 05, 2024 07:17 AM [facility] BASIC METABOLIC PANEL+MG Specimen Type: PLASMA No comment entered. Ordering Provider: JUANCARLOS ECHOLS S Report Released Date/Time: Jul 04, 2024 09:39 AM Reporting Lab: [facility] [address] Performing Lab: [facility] [address] CREATININE 0.7 mg/dL 0.7-1.2 UREA NITROGEN 12 [...] Jul 04, 2024 09:39 AM Reporting Lab: [facility] [address] Performing Lab: [facility] [address] WBC 18.3 H 4.0-11.0 RBC 4.49 L [...] Jul 03, 2024 06:31 PM Reporting Lab: [facility] [address] Performing Lab: [facility] [address] CREATININE 0.7 mg/dL 0.7-1.2 UREA NITROGEN 16 [...] Jul 03, 2024 06:31 PM Reporting Lab: [facility] [address] Performing Lab: [facility] [address] PHOSPHORUS 2.8 mg/dL 2.3-4.3 Jul 04, 2024 07:16 AM [facility] CBC Specimen Type: BLOOD No comment entered. Ordering Provider: GABINO CAMERON Report Released Date/Time: Jul 03, 2024 06:31 PM Reporting Lab: [facility] [address] Performing Lab: [facility] [address] WBC 20.6 H 4.0-11.0 RBC 4.63 4.60-6.20 [...] Jul 03, 2024 06:31 PM Reporting Lab: [facility] [address] Performing Lab: [facility] [address] WBC 20.6 H 4.0-11.0 RBC 4.63 4.60-6.20 [...] Jul 03, 2024 06:31 PM Reporting Lab: [facility] [address] Performing Lab: [facility] [address] BNP 292 pg/mL H <99 Jul 03, 2024 10:32 PM [facility] FINGERSTICK GLUCOSE Specimen Type: BLOOD Comment: Save Result Nurse Notified Ordering Provider: KATELYNN PERSON Report Released Date/Time: Jul 03, 2024 10:50 PM Reporting Lab: [facility] [address] Performing Lab: [facility] [address] FINGERSTICK GLUCOSE 126 mg/dL H 70-100 Jul 03, 2024 05:33 PM [facility] FINGERSTICK GLUCOSE Specimen Type: BLOOD Comment: Save Result Nurse Notified Ordering Provider: KATELYNN PERSON Report Released Date/Time: Jul 03, 2024 05:46 PM Reporting Lab: [facility] [address] Performing Lab: [facility] [address] FINGERSTICK GLUCOSE 141 mg/dL H 70-100 Jul 03, 2024 02:31 PM [facility] POC ABG/ELECTROLYTES Specimen Type: ARTERIAL BLOOD Comment: FIO2 = 97% Patient Temp: 36.0 C Sample Type = ARTERIAL Ordering Provider: MAZIN ARREDONDO Report Released Date/Time: Jul 03, 2024 01:48 PM Reporting Lab: [facility] [address] Performing Lab: [facility] [address] POC PH 7.387 7.35-7.45 POC PCO2 34.4 [...] Jul 03, 2024 01:48 PM Reporting Lab: [facility] [address] Performing Lab: [facility] [address] POC PH 7.280 L 7.35-7.45 POC PCO2 [...] Jun 12, 2024 04:01 PM Reporting Lab: [facility] [address] Performing Lab: [facility] [address] URINE COLOR YELLOW SPECIFIC GRAVITY 1.031 1.003-1.03 [...] Jun 12, 2024 03:59 PM Reporting Lab: [facility] [address] Performing Lab: [facility] [address] WBC 15.8 H 4.0-11.0 RBC 5.11 4.60-6.20 [...] Jun 23, 2024 06:07 PM Reporting Lab: [facility] [address] Performing Lab: [facility] [address] CREATININE 0.8 mg/dL 0.7-1.2 UREA NITROGEN 13 [...] Jun 23, 2024 06:07 PM Reporting Lab: [facility] [address] Performing Lab: [facility] [address] WBC 15.5 H 4.0-11.0 RBC 4.93 4.60-6.20 [...] Jun 22, 2024 05:51 PM Reporting Lab: [facility] [address] Performing Lab: [facility] [address] CREATININE 0.7 mg/dL 0.7-1.2 UREA NITROGEN 16 [...] Jun 22, 2024 05:51 PM Reporting Lab: [facility] [address] Performing Lab: [facility] [address] WBC 14.9 H 4.0-11.0 RBC 5.09 4.60-6.20 [...] Jun 22, 2024 05:51 PM Reporting Lab: [facility] [address] Performing Lab: [facility] [address] CREATININE 0.7 mg/dL 0.7-1.2 UREA NITROGEN 17 [...] >90 >60 Jun 22, 2024 06:10 PM [facility] CBC Specimen Type: BLOOD No comment entered. Ordering Provider: JEVON ZAZUETA Report Released Date/Time: Jun 22, 2024 05:51 PM Reporting Lab: [facility] [address] Performing Lab: [facility] [address] WBC 16.9 H 4.0-11.0 RBC 5.28 4.60-6.20 HGB 16.9 g/dL 13.5-17.9 HCT 50.4 41.0-54.0 MCV 95.5 fL 80.0-100.0 MCH 32.0 pg 27.0-33.0 MCHC 33.5 g/dL 32.0-37.5 PLT 223 150-400 MPV 10.9 fL 9.1-13.0 RDW 14.0 11.5-14.5 Jun 21, 2024 06:48 PM [facility] URINALYSIS Specimen Type: URINE No comment entered. Ordering Provider: DELIA MARTINEZ Report Released Date/Time: Jun 21, 2024 05:45 PM Reporting Lab: [facility] [address] Performing Lab: [facility] [address] URINE COLOR YELLOW SPECIFIC GRAVITY 1.041 H [...] Jun 21, 2024 06:07 PM Reporting Lab: [facility] [address] Performing Lab: [facility] [address] POC CREATININE 1.1 mg/dL 0.6-1.3 Jun 21, 2024 05:30 PM [facility] POC ABG/LACTATE Specimen Type: VENOUS BLOOD No comment entered. Ordering Provider: DELIA MARTINEZ Report Released Date/Time: Jun 21, 2024 06:07 PM Reporting Lab: [facility] [address] Performing Lab: [facility] [address] POC PH 7.470 H 7.31-7.41 POC PCO2 [...] Jun 21, 2024 05:30 PM Reporting Lab: [facility] [address] Performing Lab: [facility] [address] .INR 1.2 H 0.8-1.1 .PT 13.9 s H 9.4-12.5 Jun 21, 2024 05:24 PM [facility] LIPASE Specimen Type: PLASMA No comment entered. Ordering Provider: DELIA MARTINEZ Report Released Date/Time: Jun 21, 2024 05:30 PM Reporting Lab: [facility] [address] Performing Lab: [facility] [address] LIPASE 32 U/L <60 Jun 21, 2024 05:24 PM [facility] EXTRA GOLD GEL TUBE Specimen Type: SERUM No comment entered. Ordering Provider: DELIA MARTINEZ Report Released Date/Time: Jun 21, 2024 05:41 PM Reporting Lab: [facility] [address] Performing Lab: [facility] [address] EXTRA GOLD GEL TUBE RECEIVED Jun 21, 2024 05:24 PM [facility] COMPREHENSIVE METABOLIC PANEL+MG Specimen Type: PLASMA No comment entered. Ordering Provider: DELIA MARTINEZ Report Released Date/Time: Jun 21, 2024 05:30 PM Reporting Lab: [facility] [address] Performing Lab: [facility] [address] CREATININE 0.9 mg/dL 0.7-1.2 UREA NITROGEN 29 [...] Jun 21, 2024 05:30 PM Reporting Lab: [facility] [address] Performing Lab: [facility] [address] WBC 21.3 H 4.0-11.0 RBC 5.48 4.60-6.20 [...] May 28, 2024 09:02 AM Reporting Lab: [facility] [address] Performing Lab: [facility] [address] .INR 1.0 0.8-1.1 .PT 11.8 s 9.4-12.5 Jun 08, 2024 10:59 AM [facility] CBC Specimen Type: BLOOD No comment entered. Ordering Provider: MARYBETH POWELL Report Released Date/Time: May 28, 2024 09:02 AM Reporting Lab: [facility] [address] Performing Lab: [facility] [address] WBC 16.1 H 4.0-11.0 RBC 5.02 4.60-6.20 [...] May 28, 2024 09:02 AM Reporting Lab: [facility] [address] Performing Lab: [facility] [address] HEMOGLOBIN A1C 4.9 4.0-6.0 Jun 08, 2024 10:59 AM [facility] BASIC METABOLIC PANEL+MG Specimen Type: PLASMA No comment entered. Ordering Provider: MARYBETH POWELL Report Released Date/Time: May 28, 2024 09:02 AM Reporting Lab: [facility] [address] Performing Lab: [facility] [address] CREATININE 0.9 mg/dL 0.7-1.2 UREA NITROGEN 15 [...] PM 97.8 55 159/73 16 96 4 [facility] Jul 04, 2024 02:15 PM 56 138/64 16 97 4 [facility] Jul 04, 2024 12:40 PM 97.9 57 152/70 16 95 5 [facility] Jul 04, 2024 10:39 AM 59 132/74 16 96 4 [facility] Jul 04, 2024 08:45 AM 98 61 148/67 16 97 4 [facility] Social History: Smoking [...] place. Date/Time Current Smoking Status Comment Juan Maunel ity May 15, 2024 08:30 AM VA-TOBACCO [...] VIEWS PA A ND LAT: FLACA WEAVER [id number] -1950 M Exm Date: JUL 08, 2024@10:09 Req Phys: KATELYNN PERSON Pat Loc: 2K07-08-2024@11:49 Img Loc: MAIN X-RAY Service: [place] [address] (Case 24 COMPLETE) CHEST 2 VIEWS PA AND LAT (RAD Detailed) CPT:75164 Reason for Study: Uptrending WBC, POD 5 Clinical History: [place] IS NOT under investigation for COVID-19 or is COVID-19 negative POD 5, work up for uptrending wbc Responsible provider name and phone number to notify for critical findings if other than user placing the order and pager listed below: User placing orders pager: Katelynn Person LAST CREATININE 0.9 (07/07/24) Report Status: Verified Date Reported: JUL 08, 2024 Date Verified: JUL 08, 2024 Classifier E-Sig: Report: CHEST 2 VIEWS PA AND [...] cardiopulmonary disease. READING PHYSICIAN: Sarbjit Vaughn M.D. -[id number] 07/08/2024 12:46 [facility] National Teleradiology Program [phone] (For Medical Practitioner Use Only) Attention Patients / Veterans: If you have questions or concerns about these test results, please contact your ordering provider or primary care team. Primary Interpreting Staff: RADIOLOGY,OUTSIDE SERVICE, Staff Physician / RADIOLOGY,OUTSIDE SERVICE [facility] Jul 08, 2024 10:[address] (AP) ABDOMEN/PE LVIS W CONTRAST: FLACA WEAVER [id number] -1950 M Exm Date: JUL 08, 2024@10:00 Req Phys: KATELYNN PERSON Pat Loc: 2K07-08-2024@12:07 Img Loc: CT IMAGING Service: [place] [address] (Case 22 COMPLETE) CT (AP) ABDOMEN/PELVIS W CONTRAST(CT Detailed) CPT:72813 Contrast Media : Non-ionic Iodinated Reason for [...] PLASMA .CREAT EGFR(CKD-E >90 Ref: >=60 Allergies: ([place] only) TERAZOSIN (Mar 13, 2015) Report Status: Verified Date Reported: JUL 08, 2024 Date Verified: JUL 08, 2024 Classifier E-Sig: Report: CT (AP) ABDOMEN/PELVIS W CONTRAST [...] as noted above READING PHYSICIAN: Celestino Blanc -[phone] 07/08/2024 13:04 [facility] Teleradiology [facility] [phone] (For Medical Practitioner Use Only) Attention Patients / Veterans: If you have questions or concerns about these test results, please contact your ordering provider or primary care team. Primary Interpreting Staff: RADIOLOGY,OUTSIDE SERVICE, Staff Physician / RADIOLOGY,OUTSIDE SERVICE [facility] Jun 22, 2024 11:49 AM ABSCESS DRAIN PLAC EMENT PERITONEAL (P): FLACA WEAVER [id number] -1950 M Exm Date: JUN 22, 2024@11:49 Req Phys: ANGELA HOLDEN Loc: [facility]06-22-2024@17:14 Img Loc: INTERVENTIONAL RADIOLOGY Service: [place] [address] (Case [id number] COMPLETE) IR PERITONEAL/RETROPERITONEAL PER(ANI Detailed) CPT:70098 Reason for Study: diverticulitis with abscess (Case 3570 COMPLETE) IR MOD SEDATION 10-22 MIN (ANI Detailed) CPT:23611 Clinical History: [place] IS NOT under investigation for COVID-19 or is COVID-19 negative 73 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 please place abscess drain. Contact number for responsible provider who can be reached for any questions or notifications of critical findings: [phone] n/a LAST CREATININE 0.9 (06/21/24) Report Status: Verified Date Reported: JUN 22, 2024 Date Verified: JUN 22, 2024 Classifier E-Sig:/ES/LISA PENDLETON MD Report: PROCEDURES: Placement of [...] Using real-time CT fluoroscopy, a 5 Gabonese Green & Pleasantesis catheter was advanced into the collection in [...] Primary Interpreting Staff: LISA PENDLETON MD, RADIOLOGIST (Classifier) /JRLISA [facility] Jun 22, 2024 11:[address] NEEDLE PLACEMEN T (P): FLACA WEAVER [id number] -1950 M Exm Date: JUN 22, 2024@11:48 Req Phys: ANGELA HOLDEN Amanda Loc: [facility]/06-22-2024@17:14 Img Loc: CT IMAGING Service: [place] [address] (Case [id number] COMPLETE) CT SCAN FOR NEEDLE PLACEMENT (CT Detailed) CPT:42868 Reason for Study: l pelvic abscess drain Clinical History: Report Status: Verified Date Reported: JUN 22, 2024 Date Verified: JUN 22, 2024 Classifier E-Sig:/ES/LISA PENDLETON MD Report: PROCEDURES: Placement of [...] Using real-time CT fluoroscopy, a 5 Gabonese Green & Pleasantesis catheter was advanced into the collection in [...] Primary Interpreting Staff: LISA PENDLETON MD, RADIOLOGIST (Classifier) /JRT LISA PENDLETON [facility] Jun 21, 2024 06:[address] (AP) ABDOMEN/PE LVIS (P): FLACA WEAVER [id number] -1950 M Exm Date: JUN 21, 2024@18:09 Req Phys: DELIA MARTINEZ Pat Loc: [facility] EMERGENCY DEPT WALK-IN (Re Img Loc: CT IMAGING Service: [place] [address] (Case [id number] COMPLETE) CT (AP) ABDOMEN/PELVIS W CONTRAST(CT Detailed) CPT:62126 Contrast Media : Non-ionic Iodinated Reason for [...] PLASMA .CREAT EGFR(CKD-E >90 Ref: >=60 Allergies: ([place] only) TERAZOSIN (Mar 13, 2015) Defer to [...] 21, 2024 Date Verified: JUN 21, 2024 Classifier E-Sig:/ALEXI/CARLOS A CUNNINGHAM DO Report: EXAMINATION: CT [...] Interpreting Staff: CARLOS A CUNNINGHAM DO, RADIOLOGIST (Classifier) /CARLOS A ROWELL [facility] Pathology [...] $APHDR Reporting Lab: [facility] [CLIA# [id number]] [place] [address] - - - - - - - [...] - PATHOLOGY REPORT Accession No. [id number] - - - - - - - [...] - PATHOLOGY REPORT Accession No. [id number] - - - - - - - [...] Second circumferential surgical margin, en face; E-F: [employer] diverticula; G: As[employer] section of mesentery; H: Random outbound sales [...] One colonic tissue ring, bisected transversely. [facility] DES[facility]: Microscopic examination performed. DIAGNOSIS: 1. Colon, sigmoid, sigmoidectomy-- - Diverticulosis with perforation and focal abscess formation 2. Colon, anastomotic rings, excision-- - Viable colonic mucosa without diagnostic abnormality /alexi/ EDUARDO PALOMARES MD STAFF PATHOLOGIST Signed Jul 06, 2024@10:40 Performing Laboratory: Surgical Pathology Report Performed By: [facility] [CLIA# [id number]] [place] [address] $FTR - - - - - - [...] - - FLACA WEAVER STANDARD FORM 515 ID:[id number] SEX:M :1950 AGE: 73 LOC:62315 ADM:Jun DX:DIVERTICULITIS PCP: Jatinder Cabrera /alexi/ EDUARDO PALOMARES MD STAFF PATHOLOGIST Signed: 07/06/2024 10:40 EDUARDO PALOMARES [facility] Jun 22, 2024 01:15 PM LR MICROBIOLOGY RE PORT: Reporting Lab: [facility] [CLIA# [id number]] [place] [address] Accession [UID]: [id number] [[id number]] Received: Jun 22, 2024@13:38 Collection sample: FLUID Collection date: Jun 22, 2024 13:15 Provider: ANGELA HOLDEN Comment on specimen: LLQ ABSCESS, RECEIVED IN ANAEROBIC TRANSPORT VIAL Test(s) ordered: GRAM STAIN.................... completed: Jun 22, 2024 15:03 CULTURE & SUSCEPTIBILITY...... completed: Jun 25, 2024 * BACTERIOLOGY FINAL REPORT => Jun 25, 2024 10:56 [facility] CODE: [id number] GRAM STAIN: DIRECT SMEAR of specimen before [...] Report Performed By: [facility] [CLIA# [id number]] [place] [address] [facility] Jun 22, 2024 01:15 PM LR MICROBIOLOGY RE PORT: Reporting Lab: [facility] [CLIA# [id number]] [place] [address] Accession [UID]: [id number] [[id number]] Received: Jun 22, 2024@13:38 Collection sample: FLUID Collection date: Jun 22, 2024 13:15 Provider: ANGELA HOLDEN Comment on specimen: LLQ ABSCESS, RECEIVED IN ANAEROBIC TRANSPORT VIAL Test(s) ordered: ANAEROBIC CULTURE............. completed: Jun 28, 2024 * BACTERIOLOGY FINAL REPORT => Jun 28, 2024 10:08 TECH CODE: [id number] CULTURE RESULTS: HEAVY GROWTH MIXED ANAEROBES Comment: [...] Report Performed By: [facility] [CLIA# [id number]] [place] [address] [facility] Jun 21, 2024 06:12 PM LR MICROBIOLOGY RE PORT: Reporting Lab: [facility] [CLIA# [id number]] [place] [address] Accession [UID]: [id number] [[id number]] Received: Jun 21, 2024@18:12 Collection sample: BLOOD [...] Report Performed By: [facility] [CLIA# [id number]] [place] [address] [facility] Jun 21, 2024 06:11 PM LR MICROBIOLOGY RE PORT: Reporting Lab: [facility] [CLIA# [id number]] [place] [address] Accession [UID]: [id number] [[id number]] Received: Jun 21, 2024@18:11 Collection sample: BLOOD [...] Report Performed By: [facility] [CLIA# [id number]] [place] [address] [facility] Jun 08, 2024 11:00 AM LR MICROBIOLOGY RE PORT: Reporting Lab: [facility] [CLIA# [id number]] [place] [address] Accession [UID]: [id number] [[id number]] Received: Jun 08, 2024@11:00 Collection sample: URINE Collection date: Jun 08, 2024 11:00 Provider: MARYBETH POWELL Comment on specimen: urine Test(s) ordered: CULTURE & SUSCEPTIBILITY...... completed: Jun 09, 2024 * BACTERIOLOGY FINAL REPORT => Jun 09, 2024 19:12 TECH CODE: [id number] CULTURE RESULTS: ESCHERICHIA COLI - Quantity: >100,000 [...] Report Performed By: [facility] [CLIA# [id number]] [place] [address] [facility]
--- OUTSIDE RECORDS SUMMARY | 2024-07-16 07:43 | XMS_ITS | Encounter Summary ---
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 Date/Time Encounter Type Encounter Description Reason Pro vider Source Jul 03, 2024 05:11 PM Inpatient Visit ADMIN PAT ACTIVTIES (REM ENTERPRISECT) SYSTEM,CIS-ARK IHE Encounter Template Text not used by ME Plan of Treatment: Future Appointments (+ 6 months) and Future Tests (+/- 45 days) The Plan of Treatment section includes future care activities for the patient from all [place] treatmentfacilities. This section includes future appointments and [...] 08:15 AM [facility] Active, Pending, and Scheduled Orders This [...] TYPE & SCREEN - LAB BLOOD SP [facility] Jun 08, 2024 09:57 AM Laboratory - Chemi stry Order URINALYSIS URINE WC ONCE [facility] Jun 12, 2024 12:00 AM Laboratory - Chemi stry Order BNP PLASMA SP ONCE [facility] Jun 21, 2024 05:45 PM Laboratory - Blood Bank Order TYPE & SCREEN - LAB BLOOD WC [facility] Jul 03, 2024 12:00 AM Laboratory - Blood Bank Order TYPE & SCREEN - LAB BLOOD WC [facility] Jul 16, 2024 12:00 AM Laboratory - Chemi stry Order CBC BLOOD SP ONCE [facility] Jul 17, 2024 12:00 AM Laboratory - Chemi stry Order BASIC METABOLIC PANEL+MG PLASMA SP ONCE [facility] Lab Results: +/- 30 days of [...] Range Comment Jul 10, 2024 07:16 AM [facility] PHOSPHORUS Specimen Type: PLASMA No comment entered. Ordering Provider: JUANCARLOS ECHOLS S Report Released Date/Time: Jul 09, 2024 12:23 PM Reporting Lab: [facility] [address] Performing Lab: [facility] [address] PHOSPHORUS 3.0 mg/dL 2.3-4.3 Jul 10, 2024 07:16 AM [facility] BASIC METABOLIC PANEL+MG Specimen Type: PLASMA No comment entered. Ordering Provider: JUANCARLOS ECHOLS S Report Released Date/Time: Jul 09, 2024 12:23 PM Reporting Lab: [facility] [address] Performing Lab: [facility] [address] CREATININE 0.7 mg/dL 0.7-1.2 UREA NITROGEN 27 mg/dL H 8-26 GLUCOSE 104 mg/dL H 70-100 SODIUM 133 mmol/L L 136-145 POTASSIUM 4.3 mmol/L 3.5-5.1 CHLORIDE 102 mmol/L 98-107 CO2 19 mmol/L L 22-29 CALCIUM 10.1 mg/dL 8.4-10.2 MAGNESIUM 1.9 mg/dL 1.6-2.6 ANION GAP 12 mmol/L 5-15 .CREAT EGFR(CKD-EPI) >90 >60 Jul 10, 2024 07:15 AM [facility] CBC Specimen Type: BLOOD No comment entered. Ordering Provider: JUANCARLOS ECHOLS S Report Released Date/Time: Jul 09, 2024 12:23 PM Reporting Lab: [facility] [address] Performing Lab: [facility] [address] WBC 18.8 H 4.0-11.0 RBC 5.08 4.60-6.20 HGB 15.9 g/dL 13.5-17.9 HCT 46.8 41.0-54.0 MCV 92.1 fL 80.0-100.0 MCH 31.3 pg 27.0-33.0 MCHC 34.0 g/dL 32.0-37.5 PLT 479 H 150-400 MPV 10.2 fL 9.1-13.0 RDW 13.7 11.5-14.5 Jul 09, 2024 07:08 AM [facility] CBC Specimen Type: BLOOD No comment entered. Ordering Provider: QUYNH WEISS Report Released Date/Time: Jul 08, 2024 06:18 PM Reporting Lab: [facility] [address] Performing Lab: [facility] [address] WBC 15.3 H 4.0-11.0 RBC 4.91 4.60-6.20 HGB 15.1 g/dL 13.5-17.9 HCT 45.7 41.0-54.0 MCV 93.1 fL 80.0-100.0 MCH 30.8 pg 27.0-33.0 MCHC 33.0 g/dL 32.0-37.5 PLT 443 H 150-400 MPV 10.0 fL 9.1-13.0 RDW 13.5 11.5-14.5 Jul 08, 2024 10:50 AM [facility] URINALYSIS Specimen Type: URINE No comment entered. Ordering Provider: KATELYNN EPRSON Report Released Date/Time: Jul 08, 2024 08:41 AM Reporting Lab: [facility] [address] Performing Lab: [facility] [address] URINE COLOR YELLOW SPECIFIC GRAVITY >1.050 H [...] NEGATIVE NEGATIVE Jul 08, 2024 09:54 AM [facility] CBC Specimen Type: BLOOD Comment: Specimen received in Lab at: 0952 Ordering Provider: JUANCARLOS ECHOLS Report Released Date/Time: Jul 07, 2024 04:49 PM Reporting Lab: [facility] [address] Performing Lab: [facility] [address] WBC 17.5 H 4.0-11.0 RBC 4.88 4.60-6.20 HGB 14.9 g/dL 13.5-17.9 HCT 45.7 41.0-54.0 MCV 93.6 fL 80.0-100.0 MCH 30.5 pg 27.0-33.0 MCHC 32.6 g/dL 32.0-37.5 PLT 472 H 150-400 MPV 10.2 fL 9.1-13.0 RDW 13.7 11.5-14.5 Jul 08, 2024 09:54 AM [facility] PHOSPHORUS Specimen Type: PLASMA Comment: Specimen received in Lab at: 0952 Ordering Provider: JUANCARLOS ECHOLS S Report Released Date/Time: Jul 07, 2024 04:49 PM Reporting Lab: [facility] [address] Performing Lab: [facility] [address] PHOSPHORUS 2.6 mg/dL 2.3-4.3 Jul 08, 2024 09:54 AM [facility] BASIC METABOLIC PANEL+MG Specimen Type: PLASMA Comment: Specimen received in Lab at: 0952 Ordering Provider: JUANCARLOS ECHOLS S Report Released Date/Time: Jul 07, 2024 04:49 PM Reporting Lab: [facility] [address] Performing Lab: [facility] [address] CREATININE 0.9 mg/dL 0.7-1.2 UREA NITROGEN 26 mg/dL 8-26 GLUCOSE 128 mg/dL H 70-100 SODIUM 134 mmol/L L 136-145 POTASSIUM 3.4 mmol/L L 3.5-5.1 CHLORIDE 100 mmol/L 98-107 CO2 24 mmol/L 22-29 CALCIUM 9.8 mg/dL 8.4-10.2 MAGNESIUM 1.8 mg/dL 1.6-2.6 ANION GAP 10 mmol/L 5-15 .CREAT EGFR(CKD-EPI) >90 >60 Jul 07, 2024 02:00 PM [facility] C DIFF PANEL Specimen Type: FECES No comment entered. Ordering Provider: JEVON ZAZUETA Report Released Date/Time: Jul 07, 2024 12:26 PM Reporting Lab: [facility] [address] Performing Lab: [facility] [address] C DIFF TOX B GENE PCR NEGATIVE Negative Jul 07, 2024 07:41 AM [facility] PHOSPHORUS Specimen Type: PLASMA No comment entered. Ordering Provider: JEVON ZAZUETA Report Released Date/Time: Jul 06, 2024 03:44 PM Reporting Lab: [facility] [address] Performing Lab: [facility] [address] PHOSPHORUS 3.1 mg/dL 2.3-4.3 Jul 07, 2024 07:41 AM [facility] BASIC METABOLIC PANEL+MG Specimen Type: PLASMA No comment entered. Ordering Provider: JEVON ZAZUETA Report Released Date/Time: Jul 06, 2024 03:44 PM Reporting Lab: [facility] [address] Performing Lab: [facility] [address] CREATININE 0.9 mg/dL 0.7-1.2 UREA NITROGEN 20 mg/dL 8-26 GLUCOSE 157 mg/dL H 70-100 SODIUM 136 mmol/L 136-145 POTASSIUM 3.7 mmol/L 3.5-5.1 CHLORIDE 102 mmol/L 98-107 CO2 21 mmol/L L 22-29 CALCIUM 9.8 mg/dL 8.4-10.2 MAGNESIUM 1.9 mg/dL 1.6-2.6 ANION GAP 13 mmol/L 5-15 .CREAT EGFR(CKD-EPI) >90 >60 Jul 07, 2024 07:40 AM [facility] CBC Specimen Type: BLOOD No comment entered. Ordering Provider: JEVON ZAZUETA Report Released Date/Time: Jul 06, 2024 03:44 PM Reporting Lab: [facility] [address] Performing Lab: [facility] [address] WBC 21.2 H 4.0-11.0 RBC 5.09 4.60-6.20 HGB 15.9 g/dL 13.5-17.9 HCT 48.3 41.0-54.0 MCV 94.9 fL 80.0-100.0 MCH 31.2 pg 27.0-33.0 MCHC 32.9 g/dL 32.0-37.5 PLT 500 H 150-400 MPV 10.3 fL 9.1-13.0 RDW 13.6 11.5-14.5 Jul 06, 2024 07:21 AM [facility] CBC Specimen Type: BLOOD No comment entered. Ordering Provider: JEVON ZAZUETA Report Released Date/Time: Jul 05, 2024 01:22 PM Reporting Lab: [facility] [address] Performing Lab: [facility] [address] WBC 18.0 H 4.0-11.0 RBC 4.83 4.60-6.20 HGB 14.6 g/dL 13.5-17.9 HCT 45.5 41.0-54.0 MCV 94.2 fL 80.0-100.0 MCH 30.2 pg 27.0-33.0 MCHC 32.1 g/dL 32.0-37.5 PLT 368 150-400 MPV 10.4 fL 9.1-13.0 RDW 13.6 11.5-14.5 Jul 06, 2024 07:21 AM [facility] PHOSPHORUS Specimen Type: PLASMA No comment entered. Ordering Provider: JEVON ZAZUETA Report Released Date/Time: Jul 05, 2024 01:22 PM Reporting Lab: [facility] [address] Performing Lab: [facility] [address] PHOSPHORUS 3.6 mg/dL 2.3-4.3 Jul 06, 2024 07:21 AM [facility] BASIC METABOLIC PANEL+MG Specimen Type: PLASMA No comment entered. Ordering Provider: JEVON ZAZUETA Report Released Date/Time: Jul 05, 2024 01:22 PM Reporting Lab: [facility] [address] Performing Lab: [facility] [address] CREATININE 0.7 mg/dL 0.7-1.2 UREA NITROGEN 12 mg/dL 8-26 GLUCOSE 108 mg/dL H 70-100 SODIUM 138 mmol/L 136-145 POTASSIUM 3.4 mmol/L L 3.5-5.1 CHLORIDE 104 mmol/L 98-107 CO2 20 mmol/L L 22-29 CALCIUM 9.3 mg/dL 8.4-10.2 MAGNESIUM 1.9 mg/dL 1.6-2.6 ANION GAP 14 mmol/L 5-15 .CREAT EGFR(CKD-EPI) >90 >60 Jul 05, 2024 07:17 AM [facility] MAGNESIUM Specimen Type: PLASMA No comment entered. Ordering Provider: JUANCARLOS ECHOLS S Report Released Date/Time: Jul 04, 2024 09:39 AM Reporting Lab: [facility] [address] Performing Lab: [facility] [address] MAGNESIUM 2.0 mg/dL 1.6-2.6 Jul 05, 2024 07:17 AM [facility] PHOSPHORUS Specimen Type: PLASMA No comment entered. Ordering Provider: JUANCARLOS ECHOLS S Report Released Date/Time: Jul 04, 2024 09:39 AM Reporting Lab: [facility] [address] Performing Lab: [facility] [address] PHOSPHORUS 2.0 mg/dL L 2.3-4.3 Jul 05, 2024 07:17 AM [facility] BASIC METABOLIC PANEL+MG Specimen Type: PLASMA No comment entered. Ordering Provider: JUANCARLOS ECHOLS S Report Released Date/Time: Jul 04, 2024 09:39 AM Reporting Lab: [facility] [address] Performing Lab: [facility] [address] CREATININE 0.7 mg/dL 0.7-1.2 UREA NITROGEN 12 mg/dL 8-26 GLUCOSE 84 mg/dL 70-100 SODIUM 135 mmol/L L 136-145 POTASSIUM 3.8 mmol/L 3.5-5.1 CHLORIDE 104 mmol/L 98-107 CO2 24 mmol/L 22-29 CALCIUM 9.3 mg/dL 8.4-10.2 MAGNESIUM 2.0 mg/dL 1.6-2.6 ANION GAP 7 mmol/L 5-15 .CREAT EGFR(CKD-EPI) >90 >60 Jul 05, 2024 07:16 AM [facility] CBC Specimen Type: BLOOD No comment entered. Ordering Provider: JUANCARLOS ECHOLS S Report Released Date/Time: Jul 04, 2024 09:39 AM Reporting Lab: [facility] [address] Performing Lab: [facility] [address] WBC 18.3 H 4.0-11.0 RBC 4.49 L 4.60-6.20 HGB 14.1 g/dL 13.5-17.9 HCT 43.4 41.0-54.0 MCV 96.7 fL 80.0-100.0 MCH 31.4 pg 27.0-33.0 MCHC 32.5 g/dL 32.0-37.5 PLT 317 150-400 MPV 10.0 fL 9.1-13.0 RDW 13.9 11.5-14.5 Jul 04, 2024 07:17 AM [facility] BASIC METABOLIC PANEL+MG Specimen Type: PLASMA No comment entered. Ordering Provider: GABINO CAMERON Report Released Date/Time: Jul 03, 2024 06:31 PM Reporting Lab: [facility] [address] Performing Lab: [facility] [address] CREATININE 0.7 mg/dL 0.7-1.2 UREA NITROGEN 16 mg/dL 8-26 GLUCOSE 129 mg/dL H 70-100 SODIUM 137 mmol/L 136-145 POTASSIUM 3.7 mmol/L 3.5-5.1 CHLORIDE 107 mmol/L 98-107 CO2 22 mmol/L 22-29 CALCIUM 9.0 mg/dL 8.4-10.2 MAGNESIUM 1.9 mg/dL 1.6-2.6 ANION GAP 8 mmol/L 5-15 .CREAT EGFR(CKD-EPI) >90 >60 Jul 04, 2024 07:17 AM [facility] PHOSPHORUS Specimen Type: PLASMA No comment entered. Ordering Provider: GABINO CAMERON Report Released Date/Time: Jul 03, 2024 06:31 PM Reporting Lab: [facility] [address] Performing Lab: [facility] [address] PHOSPHORUS 2.8 mg/dL 2.3-4.3 Jul 04, 2024 07:16 AM [facility] CBC Specimen Type: BLOOD No comment entered. Ordering Provider: GABINO CAMERON Report Released Date/Time: Jul 03, 2024 06:31 PM Reporting Lab: [facility] [address] Performing Lab: [facility] [address] WBC 20.6 H 4.0-11.0 RBC 4.63 4.60-6.20 HGB 14.2 g/dL 13.5-17.9 HCT 43.4 41.0-54.0 MCV 93.7 fL 80.0-100.0 MCH 30.7 pg 27.0-33.0 MCHC 32.7 g/dL 32.0-37.5 PLT 329 150-400 MPV 10.4 fL 9.1-13.0 RDW 13.8 11.5-14.5 Jul 04, 2024 07:16 AM [facility] CBC & DIFF Specimen Type: BLOOD Comment: Manual Differential Performed Ordering Provider: GABINO CAMERON Report Released Date/Time: Jul 03, 2024 06:31 PM Reporting Lab: [facility] [address] Performing Lab: [facility] [address] WBC 20.6 H 4.0-11.0 RBC 4.63 4.60-6.20 [...] MORPHOLOGY PRESENT Jul 04, 2024 07:15 AM [facility] BNP Specimen Type: PLASMA No comment entered. Ordering Provider: GABINO CAMERON Report Released Date/Time: Jul 03, 2024 06:31 PM Reporting Lab: [facility] [address] Performing Lab: [facility] [address] BNP 292 pg/mL H <99 Jul 03, 2024 10:32 PM [facility] FINGERSTICK GLUCOSE Specimen Type: BLOOD Comment: Save Result Nurse Notified Ordering Provider: KATELYNN PERSON Report Released Date/Time: Jul 03, 2024 10:50 PM Reporting Lab: [facility] [address] Performing Lab: [facility] [address] FINGERSTICK GLUCOSE 126 mg/dL H 70-100 Jul 03, 2024 05:33 PM [facility] FINGERSTICK GLUCOSE Specimen Type: BLOOD Comment: Save Result Nurse Notified Ordering Provider: KATELYNN PERSON Report Released Date/Time: Jul 03, 2024 05:46 PM Reporting Lab: [facility] [address] Performing Lab: [facility] [address] FINGERSTICK GLUCOSE 141 mg/dL H 70-100 Jul 03, 2024 02:31 PM [facility] POC ABG/ELECTROLYTES Specimen Type: ARTERIAL BLOOD Comment: FIO2 = 97% Patient Temp: 36.0 C Sample Type = ARTERIAL Ordering Provider: MAZIN ARREDONDO Report Released Date/Time: Jul 03, 2024 01:48 PM Reporting Lab: [facility] [address] Performing Lab: [facility] [address] POC PH 7.387 7.35-7.45 POC PCO2 34.4 [...] H 80.0-105.0 Jul 03, 2024 01:05 PM [facility] POC ABG/ELECTROLYTES Specimen Type: ARTERIAL BLOOD Comment: FIO2 = 53% Patient Temp: 36.2 C Sample Type = ARTERIAL Ordering Provider: MAZIN ARREDONDO Report Released Date/Time: Jul 03, 2024 01:48 PM Reporting Lab: [facility] [address] Performing Lab: [facility] [address] POC PH 7.280 L 7.35-7.45 POC PCO2 [...] mm[Hg] 80.0-105.0 Jul 03, 2024 06:15 AM [facility] URINALYSIS Specimen Type: URINE No comment entered. Ordering Provider: MARYBETH POWELL Report Released Date/Time: Jun 12, 2024 04:01 PM Reporting Lab: [facility] [address] Performing Lab: [facility] [address] URINE COLOR YELLOW SPECIFIC GRAVITY 1.031 1.003-1.03 [...] 250 NEGATIVE Jul 03, 2024 06:13 AM [facility] CBC Specimen Type: BLOOD No comment entered. Ordering Provider: MARYBETH POWELL Report Released Date/Time: Jun 12, 2024 03:59 PM Reporting Lab: [facility] [address] Performing Lab: [facility] [address] WBC 15.8 H 4.0-11.0 RBC 5.11 4.60-6.20 HGB 16.1 g/dL 13.5-17.9 HCT 49.1 41.0-54.0 MCV 96.1 fL 80.0-100.0 MCH 31.5 pg 27.0-33.0 MCHC 32.8 g/dL 32.0-37.5 PLT 357 150-400 MPV 9.8 fL 9.1-13.0 RDW 13.7 11.5-14.5 Jun 24, 2024 09:50 AM [facility] BASIC METABOLIC PANEL+MG Specimen Type: PLASMA Comment: Specimen received in Lab at: 0948 Ordering Provider: JEVON ZAZUETA Report Released Date/Time: Jun 23, 2024 06:07 PM Reporting Lab: [facility] [address] Performing Lab: [facility] [address] CREATININE 0.8 mg/dL 0.7-1.2 UREA NITROGEN 13 mg/dL 8-26 GLUCOSE 135 mg/dL H 70-100 SODIUM 135 mmol/L L 136-145 POTASSIUM 3.6 mmol/L 3.5-5.1 CHLORIDE 103 mmol/L 98-107 CO2 24 mmol/L 22-29 CALCIUM 9.2 mg/dL 8.4-10.2 MAGNESIUM 1.9 mg/dL 1.6-2.6 ANION GAP 8 mmol/L 5-15 .CREAT EGFR(CKD-EPI) >90 >60 Jun 24, 2024 09:50 AM [facility] CBC Specimen Type: BLOOD Comment: Specimen received in Lab at: 0948 Ordering Provider: JEVON ZAZUETA Report Released Date/Time: Jun 23, 2024 06:07 PM Reporting Lab: [facility] [address] Performing Lab: [facility] [address] WBC 15.5 H 4.0-11.0 RBC 4.93 4.60-6.20 HGB 15.2 g/dL 13.5-17.9 HCT 46.5 41.0-54.0 MCV 94.3 fL 80.0-100.0 MCH 30.8 pg 27.0-33.0 MCHC 32.7 g/dL 32.0-37.5 PLT 223 150-400 MPV 11.4 fL 9.1-13.0 RDW 13.9 11.5-14.5 Jun 23, 2024 07:52 AM [facility] COMPREHENSIVE METABOLIC PANEL+MG Specimen Type: PLASMA No comment entered. Ordering Provider: JEVON ZAZUETA Report Released Date/Time: Jun 22, 2024 05:51 PM Reporting Lab: [facility] [address] Performing Lab: [facility] [address] CREATININE 0.7 mg/dL 0.7-1.2 UREA NITROGEN 16 [...] >90 >60 Jun 23, 2024 07:52 AM [facility] CBC & DIFF Specimen Type: BLOOD Comment: Automated Differential Performed Ordering Provider: JEVON ZAZUETA Report Released Date/Time: Jun 22, 2024 05:51 PM Reporting Lab: [facility] [address] Performing Lab: [facility] [address] WBC 14.9 H 4.0-11.0 RBC 5.09 4.60-6.20 [...] 0.1 0.0-0.1 Jun 22, 2024 06:10 PM [facility] CBC Specimen Type: BLOOD No comment entered. Ordering Provider: JEVON ZAZUETA Report Released Date/Time: Jun 22, 2024 05:51 PM Reporting Lab: [facility] [address] Performing Lab: [facility] [address] WBC 16.9 H 4.0-11.0 RBC 5.28 4.60-6.20 HGB 16.9 g/dL 13.5-17.9 HCT 50.4 41.0-54.0 MCV 95.5 fL 80.0-100.0 MCH 32.0 pg 27.0-33.0 MCHC 33.5 g/dL 32.0-37.5 PLT 223 150-400 MPV 10.9 fL 9.1-13.0 RDW 14.0 11.5-14.5 Jun 22, 2024 06:10 PM [facility] COMPREHENSIVE METABOLIC PANEL+MG Specimen Type: PLASMA No comment entered. Ordering Provider: JEVON ZAZUETA Report Released Date/Time: Jun 22, 2024 05:51 PM Reporting Lab: [facility] [address] Performing Lab: [facility] [address] CREATININE 0.7 mg/dL 0.7-1.2 UREA NITROGEN 17 [...] >90 >60 Jun 21, 2024 06:48 PM [facility] URINALYSIS Specimen Type: URINE No comment entered. Ordering Provider: DELIA MARTINEZ Report Released Date/Time: Jun 21, 2024 05:45 PM Reporting Lab: [facility] [address] Performing Lab: [facility] [address] URINE COLOR YELLOW SPECIFIC GRAVITY 1.041 H [...] 500 NEGATIVE Jun 21, 2024 05:34 PM [facility] POC CREATININE Specimen Type: BLOOD No comment entered. Ordering Provider: DELIA MARTINEZ Report Released Date/Time: Jun 21, 2024 06:07 PM Reporting Lab: [facility] [address] Performing Lab: [facility] [address] POC CREATININE 1.1 mg/dL 0.6-1.3 Jun 21, 2024 05:30 PM [facility] POC ABG/LACTATE Specimen Type: VENOUS BLOOD No comment entered. Ordering Provider: DELIA MARTINEZ Report Released Date/Time: Jun 21, 2024 06:07 PM Reporting Lab: [facility] [address] Performing Lab: [facility] [address] POC PH 7.470 H 7.31-7.41 POC PCO2 31.2 mm[Hg] L 41.00-51 .0 0 POC PO2 46 mm[Hg] H 35.0-40.0 POC TCO2 24 mmol/L 24.0-29.0 POC HCO3 22.7 mmol/L L 23.0-28.0 POC BE ECT -1 mmol/L POC SO2 85 H 70-75 POC LACTATE 1.85 mmol/L 0.90-1.70 Jun 21, 2024 05:24 PM [facility] PROTHROMBIN TIME/INR Specimen Type: PLASMA No comment entered. Ordering Provider: DELIA MARTINEZ Report Released Date/Time: Jun 21, 2024 05:30 PM Reporting Lab: [facility] [address] Performing Lab: [facility] [address] .INR 1.2 H 0.8-1.1 .PT 13.9 s H 9.4-12.5 Jun 21, 2024 05:24 PM [facility] LIPASE Specimen Type: PLASMA No comment entered. Ordering Provider: DELIA MARTINEZ Report Released Date/Time: Jun 21, 2024 05:30 PM Reporting Lab: [facility] [address] Performing Lab: [facility] [address] LIPASE 32 U/L <60 Jun 21, 2024 05:24 PM [facility] EXTRA GOLD GEL TUBE Specimen Type: SERUM No comment entered. Ordering Provider: DELIA MARTINEZ Report Released Date/Time: Jun 21, 2024 05:41 PM Reporting Lab: [facility] [address] Performing Lab: [facility] [address] EXTRA GOLD GEL TUBE RECEIVED Jun 21, 2024 05:24 PM [facility] COMPREHENSIVE METABOLIC PANEL+MG Specimen Type: PLASMA No comment entered. Ordering Provider: DELIA MARTINEZ Report Released Date/Time: Jun 21, 2024 05:30 PM Reporting Lab: [facility] [address] Performing Lab: [facility] [address] CREATININE 0.9 mg/dL 0.7-1.2 UREA NITROGEN 29 [...] mg/dL <0.5 Jun 21, 2024 05:24 PM [facility] CBC & DIFF Specimen Type: BLOOD Comment: Manual Differential Performed Ordering Provider: DELIA MARTINEZ Report Released Date/Time: Jun 21, 2024 05:30 PM Reporting Lab: [facility] [address] Performing Lab: [facility] [address] WBC 21.3 H 4.0-11.0 RBC 5.48 4.60-6.20 [...] MORPHOLOGY PRESENT Jun 08, 2024 10:59 AM [facility] PROTHROMBIN TIME/INR Specimen Type: PLASMA No comment entered. Ordering Provider: MARYBETH POWELL Report Released Date/Time: May 28, 2024 09:02 AM Reporting Lab: [facility] [phone] Performing Lab: [facility] [address] .INR 1.0 0.8-1.1 .PT 11.8 s 9.4-12.5 Jun 08, 2024 10:59 AM [facility] CBC Specimen Type: BLOOD No comment entered. Ordering Provider: MARYBETH POWELL Report Released Date/Time: May 28, 2024 09:02 AM Reporting Lab: [facility] [address] Performing Lab: [facility] [address] WBC 16.1 H 4.0-11.0 RBC 5.02 4.60-6.20 HGB 16.0 g/dL 13.5-17.9 HCT 47.1 41.0-54.0 MCV 93.8 fL 80.0-100.0 MCH 31.9 pg 27.0-33.0 MCHC 34.0 g/dL 32.0-37.5 PLT 228 150-400 MPV 10.3 fL 9.1-13.0 RDW 14.6 H 11.5-14.5 Jun 08, 2024 10:59 AM [facility] HEMOGLOBIN A1C Specimen Type: BLOOD Comment: [...] May 28, 2024 09:02 AM Reporting Lab: [facility] [id number] Performing Lab: [facility] [address] HEMOGLOBIN A1C 4.9 4.0-6.0 Jun 08, 2024 10:59 AM [facility] BASIC METABOLIC PANEL+MG Specimen Type: PLASMA No comment entered. Ordering Provider: MARYBETH POWELL Report Released Date/Time: May 28, 2024 09:02 AM Reporting Lab: [facility] [phone] Performing Lab: [facility] [phone] CREATININE 0.9 mg/dL 0.7-1.2 UREA NITROGEN 15 [...] Source Jul 03, 2024 11:26 PM 3 [facility] Jul 03, 2024 10:33 PM 5 [facility] Jul 03, 2024 08:26 PM 3 [facility] Jul 03, 2024 07:58 PM 5 [facility] Jul 03, 2024 07:25 PM 3 [facility] Social History: Smoking Status (Most [...] 15, 2024 08:30 AM [facility]-TOBACCO FORMER USER [facility] Tobacco Use History This section includes a history of the smoking, or tobacco-related health factors, that were collected on or before the date of the Encounter. The data comes from the [place] facility where the Encounter took place. Date/Time Smoking Status/Tobacco Use Comment F acility May 15, 2024 08:30 AM VA-TOBACCO QUIT 15 YRS OR MORE [facility] May 06, 2023 11:30 AM VA-TOBACCO FORMER USER [facility] May 06, 2023 11:30 AM VA-TOBACCO QUIT 15 YRS OR MORE [facility] Jun 04, 2022 09:00 AM VA-TOBACCO FORMER USER [facility] Jun 04, 2022 09:00 AM ME-TOBACCO QUIT 15 YRS OR MORE [facility] Jul 10, 2021 08:00 AM VA-TOBACCO FORMER USER [facility] Jul 10, 2021 08:00 AM VA-TOBACCO QUIT 5 TO < 15 YRS [facility] May 23, 2020 08:30 AM VA-TOBACCO FORMER USER [facility] May 23, 2020 08:30 AM VA-TOBACCO QUIT 5 TO < 15 YRS [facility] Mar 20, 2019 04:03 PM VA-TOBACCO FORMER USER [facility] Mar 20, 2019 04:03 PM VA-TOBACCO QUIT 5 TO < 15 YRS [facility] Mar 21, 2018 08:13 AM FORMER TOBACCO USER 7Y OR GREATE R [facility] Feb 24, 2017 09:24 AM FORMER TOBACCO USER 7Y OR GREATE R [facility] January 07, 2016 08:01 AM FORMER TOBACCO USE >1Y <7Y [facility] Feb 03, 2015 07:58 AM FORMER TOBACCO USE <1Y [facility] Feb 26, 2014 08:41 AM CURRENT TOBACCO USER [facility] May 13, 2011 01:45 PM CURRENT TOBACCO USER [facility] Advance Directives: All historical and current [...] 2016 CLINICAL WARNING TIM TERAN CARLOSEDUARDO LOZANO [facility] Radiology Reports: +/- 30 [...] VIEWS [place] LAT: FLACA WEAVER [id number] -1950 M Exm Date: JUL 08, 2024@10:09 Req Phys: KATELYNN PERSON Pat Loc: 07-08-2024@11:49 Img Loc: MAIN X-RAY Service: [place] [address] (Case 24 COMPLETE) CHEST 2 VIEWS PA AND LAT (RAD Detailed) CPT:40629 Reason for Study: Uptrending WBC, POD 5 [...] 08, 2024 Date Verified: JUL 08, 2024 Dominatrix E-Sig: Report: CHEST 2 VIEWS PA AND [...] cardiopulmonary disease. READING PHYSICIAN: Sarbjit Vaughn M.D. -[id number] 07/08/2024 12:46 [facility] National Telerad[facility] Program [phone] (For Medical Practitioner Use Only) Attention Patients / Veterans: If you have questions or concerns about these test results, please contact your ordering provider or primary care team. Primary Interpreting Staff: RADIOLOGY,OUTSIDE SERVICE, Staff Physician / RADIOLOGY,OUTSIDE SERVICE [facility] Jul 08, 2024 10:[address] (AP) ABDOMEN/PE LVIS W CONTRAST: MEGFLACA YAMIL [id number] -1950 M Exm Date: JUL 08, 2024@10:00 Req Phys: KATELYNN PERSON Pat Loc: 07-08-2024@12:07 Img Loc: CT IMAGING Service: [place] [address] (Case 22 COMPLETE) CT (AP) ABDOMEN/PELVIS W CONTRAST(CT Detailed) CPT:82827 Contrast Media : Non-ionic Iodinated Reason for [...] PLASMA .CREAT EGFR(CKD-E >90 Ref: >=60 Allergies: ([facility] only) TERAZOSIN (Mar 13, 2015) Report Status: Verified Date Reported: JUL 08, 2024 Date Verified: JUL 08, 2024 Dominatrix E-Sig: Report: CT (AP) ABDOMEN/PELVIS W CONTRAST [...] as noted above READING PHYSICIAN: Celestino Blanc -[id number] 07/08/2024 13:04 [facility] [employer] [facility] [phone] (For Medical Practitioner Use Only) Attention Patients / Veterans: If you have questions or concerns about these test results, please contact your ordering provider or primary care team. Primary Interpreting Staff: RADIOLOGY,OUTSIDE SERVICE, Staff Physician / RADIOLOGY,OUTSIDE SERVICE [facility] Jun 22, 2024 11:49 AM ABSCESS DRAIN PLAC EMENT PERITONEAL (P): FLACA WEAVER [id number] -1950 M Exm Date: JUN 22, 2024@11:49 Req Phys: ANGELA HOLDEN Pat Loc: [facility]06-22-2024@17:14 Img Loc: INTERVENTIONAL RADIOLOGY Service: [place] [address] (Case [id number] COMPLETE) IR PERITONEAL/RETROPERITONEAL PER(ANI Detailed) CPT:94012 Reason for Study: diverticulitis with abscess (Case 3570 COMPLETE) IR MOD SEDATION 10-22 MIN (ANI Detailed) CPT:42992 Clinical History: IS NOT under investigation for COVID-19 or is COVID-19 negative 73 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 please place abscess drain. Contact number for responsible provider who can be reached for any questions or notifications of critical findings: [phone] n/a LAST CREATININE 0.9 (06/21/24) Report Status: Verified Date Reported: JUN 22, 2024 Date Verified: JUN 22, 2024 Dominatrix E-Sig:/ES/LISA PENDLETON MD Report: PROCEDURES: Placement of [...] anesthesia. Using real-time CT fluoroscopy, a 5 [place] [employer] centesis catheter was advanced into the collection in the left pelvis. A wire was coiled in the collection. The tract into the collection was dilated to accommodate the 12 Emirati locking pigtail drainage catheter. There was return [...] Primary Interpreting Staff: LISA PENDLETON MD, RADIOLOGIST (Dominatrix) /LISA CARDONA [facility] Jun 22, 2024 11:[address] NEEDLE PLACEMEN T (P): FLACA WEAVER [id number] -1950 M Exm Date: JUN 22, 2024@11:48 Req Phys: ANGELA HOLDEN Loc: 2K/06-22-2024@17:14 Img Loc: CT IMAGING Service: [place] [address] (Case [id number] COMPLETE) CT SCAN FOR NEEDLE PLACEMENT (CT Detailed) CPT:80858 Reason for Study: l pelvic abscess drain Clinical History: Report Status: Verified Date Reported: JUN 22, 2024 Date Verified: JUN 22, 2024 Dominatrix E-Sig:/ES/LISA PENDLETON MD Report: PROCEDURES: Placement of [...] anesthesia. Using real-time CT fluoroscopy, a 5 Emirati [employer] catheter was advanced into the collection in the left pelvis. A wire was coiled in the collection. The tract into the collection was dilated to accommodate the 12 [place] locking pigtail drainage catheter. There was return [...] Primary Interpreting Staff: LISA PENDLETON MD, RADIOLOGIST (Dominatrix) /JRT LISA PENDLETON [facility] Jun 21, 2024 06:[address] (AP) ABDOMEN/PE LVIS (P): FLACA WEAVER [id number] -1950 M Exm Date: JUN 21, 2024@18:09 Req Phys: DELIA MARTINEZ Loc: [facility] EMERGENCY DEPT WALK-IN (Re Img Loc: CT IMAGING Service: [place] [address] (Case [id number] COMPLETE) CT (AP) ABDOMEN/PELVIS W CONTRAST(CT Detailed) CPT:51171 Contrast Media : Non-ionic Iodinated Reason for [...] PLASMA .CREAT EGFR(CKD-E >90 Ref: >=60 Allergies: ([facility] only) TERAZOSIN (Mar 13, 2015) Defer to [...] 21, 2024 Date Verified: JUN 21, 2024 Dominatrix E-Sig:/ALEXI/CARLOS A CUNNINGHAM DO Report: EXAMINATION: CT [...] Interpreting Staff: CARLOS A CUNNINGHAM DO, RADIOLOGIST (Dominatrix) /CARLOS A ROWELL [facility] Pathology Reports: +/- 30 days of [...] COSIGNER: URGENCY: STATUS: COMPLETED $APHDR Reporting Lab: [facility] [CLIA# [id number]] [place] [address] - - - - - - - [...] - PATHOLOGY REPORT Accession No. [id number] - - - - - - - [...] - PATHOLOGY REPORT Accession No. [id number] - - - - - - - [...] Second circumferential surgical margin, en face; E-F: Loader diverticula; G: Loader section of mesentery; H: Random sales solutions [...] Performing Laboratory: Surgical Pathology Report Performed By: [facility] [CLIA# [id number]] [place] [address] $FTR - - - - - - [...] - - FLACA WEAVER STANDARD FORM 515 ID:[id number] SEX:M :1950 AGE: 73 LOC:52647 ADM:Jun DX:DIVERTICULITIS PCP: Jatinder Cabrera /alexi/ EDUARDO PALOMARES MD STAFF PATHOLOGIST Signed: 07/06/2024 10:40 EDUARDO PALOMARES [facility] Jun 22, 2024 01:15 PM LR MICROBIOLOGY RE PORT: Reporting Lab: [facility] [CLIA# [id number]] [place] [address] Accession [UID]: [id number] [[id number]] Received: Jun 22, 2024@13:38 Collection sample: FLUID Collection date: Jun 22, 2024 13:15 Provider: ANGELA HOLDEN Comment on specimen: LLQ ABSCESS, RECEIVED IN ANAEROBIC TRANSPORT VIAL Test(s) ordered: GRAM STAIN.................... completed: Jun 22, 2024 15:03 CULTURE & SUSCEPTIBILITY...... completed: Jun 25, 2024 * BACTERIOLOGY FINAL REPORT => Jun 25, 2024 10:56 TECH CODE: [id number] GRAM STAIN: DIRECT SMEAR of specimen before [...] -=--=--=--=--=--=--=-- Performing Laboratory: Bacteriology Report Performed By: [facility] [CLIA# [id number]] [place] [address] [facility] Jun 22, 2024 01:15 PM LR MICROBIOLOGY RE PORT: Reporting Lab: [facility] [CLIA# [id number]] [place] [address] Accession [UID]: [id number] [[id number]] Received: Jun 22, 2024@13:38 Collection sample: FLUID Collection date: Jun 22, 2024 13:15 Provider: ANGELA HOLDEN Comment on specimen: LLQ ABSCESS, RECEIVED IN ANAEROBIC TRANSPORT VIAL Test(s) ordered: ANAEROBIC CULTURE............. completed: Jun 28, 2024 * BACTERIOLOGY FINAL REPORT => Jun 28, 2024 10:08 TECH CODE: [id number] CULTURE RESULTS: HEAVY GROWTH MIXED ANAEROBES Comment: including the followin+ Bacteroides fragilis 4+ Bacteroides vulgatus 4+ Clostridium innocuum Beta-lactamase negative 4+ Bacteroides caccae 4+ Parvimonas micra 4+ Bacteroides uniformis 4+ Gemella morbillorum 4+ anaerobic small, Gram Positive Rods 4+ Bacteroides thetaiotaomicron Standard workup is now complete. Bacteriology Remark(s): THIS REPORT IS FINAL =--=--=--=--=--=--=--=--=--= --=--=--=--=--=--=--=--=--=- -=--=--=--=--=--=--=-- Performing Laboratory: Bacteriology Report Performed By: [facility] [CLIA# [id number]] [place] [address] [facility] Jun 21, 2024 06:12 PM LR MICROBIOLOGY RE PORT: Reporting Lab: [facility] [CLIA# [id number]] [place] [address] Accession [UID]: [id number] [[id number]] Received: Jun 21, 2024@18:12 Collection sample: BLOOD [...] -=--=--=--=--=--=--=-- Performing Laboratory: Bacteriology Report Performed By: [facility] [CLIA# [id number]] [place] [address] [facility] Jun 21, 2024 06:11 PM LR MICROBIOLOGY RE PORT: Reporting Lab: [facility] [CLIA# [id number]] [place] [address] Accession [UID]: [id number] [[id number]] Received: Jun 21, 2024@18:11 Collection sample: BLOOD [...] -=--=--=--=--=--=--=-- Performing Laboratory: Bacteriology Report Performed By: [facility] [CLIA# [id number]] [place] [address] [facility] Jun 08, 2024 11:00 AM LR MICROBIOLOGY RE PORT: Reporting Lab: [facility] [CLIA# [id number]] [place] [address] Accession [UID]: [id number] [[id number]] Received: Jun 08, 2024@11:00 Collection sample: URINE Collection date: Jun 08, 2024 11:00 Provider: MARYBETH POWELL Comment on specimen: urine Test(s) ordered: CULTURE & SUSCEPTIBILITY...... completed: Jun 09, 2024 * BACTERIOLOGY FINAL REPORT => Jun 09, 2024 19:12 TECH CODE: [id number] CULTURE RESULTS: ESCHERICHIA COLI - Quantity: >100,000 [...] -=--=--=--=--=--=--=-- Performing Laboratory: Bacteriology Report Performed By: [facility] [CLIA# [id number]] [place] [address] [facility] Encounter Notes: All associated encounter notes This section contains the clinical notes associated to the Encounter. Date/Time Encounter Note(s) Provider Source Jul 03, 2024 05:11 PM CRITICAL CARE UNIT NOTE: LOCAL TITLE: [facility] INPATIENT FLOWSHEET STANDARD TITLE: CRITICAL CARE UNIT NOTE DATE OF NOTE: JUL 03, 2024@17:11 ENTRY DATE: JUL 04, 2024@14:37:18 AUTHOR: PETERSONFleep EXP COSIGNER: URGENCY: STATUS: COMPLETED This is a place aranda only. Please see [employer] to view document. /es/ [employer] SYSTEM ICU DOCUMENT IMPORT Signed: 07/04/2024 14:37 PETERSONFleep [facility] Jul 03, 2024 05:11 PM CRITICAL CARE UNIT NOTE: LOCAL TITLE: [facility] RESPIRATORY THERAPY FLOWSHEET STANDARD TITLE: CRITICAL CARE UNIT NOTE DATE OF NOTE: JUL 03, 2024@17:11 ENTRY DATE: JUL 04, 2024@15:11:01 AUTHOR: PETERSONFleep EXP COSIGNER: URGENCY: STATUS: COMPLETED This is a place aranda only. Please see [employer] to view document. /es/ [employer] SYSTEM ICU DOCUMENT IMPORT Signed: 07/04/2024 15:11 PETERSONFleep [facility]
--- OUTSIDE RECORDS SUMMARY | 2024-07-16 07:43 | XMS_ITS ---
Author Name [facility] Organization [facility] [place] Address [address] [place] [address] Care Team Providers Care Engineering Project Manager Name Role Phone JATINDER CABRERA Primary [...] PART A Sep 29, 2016 PART A [id number] JUDY WEAVER PATIENT Selected Encounter This section includes the information on record at [place] for the Encounter. Date/Time Encounter Type Encounter Description Reason Provider Source Jul 03, 2024 01:00 AM Outpatient Encounter ADMIN PAT ACTIVTIES (QuibbCT) SYSTEM,CIS-ARK IHE Encounter Template Text not used [...] 08:15 AM AMBULATORY - NONE [place] [facility] Active, Pending, and Scheduled Orders This [...] TYPE & SCREEN - LAB BLOOD WC [facility] Jul 03, 2024 12:00 AM Laboratory - Blood Bank Order TYPE & SCREEN - LAB BLOOD WC [facility] Jul 16, 2024 12:00 AM Laboratory - [...] Jul 09, 2024 12:23 PM Reporting Lab: [facility] [address] Performing Lab: [facility] [address] PHOSPHORUS 3.0 mg/dL 2.3-4.3 Jul 10, 2024 07:16 AM [facility] BASIC METABOLIC PANEL+MG Specimen Type: PLASMA No comment entered. Ordering Provider: JUANCARLOS ECHOLS S Report Released Date/Time: Jul 09, 2024 12:23 PM Reporting Lab: [facility] [address] Performing Lab: [facility] [address] CREATININE 0.7 mg/dL 0.7-1.2 UREA NITROGEN 27 [...] Jul 09, 2024 12:23 PM Reporting Lab: [facility] [address] Performing Lab: [facility] [address] WBC 18.8 H 4.0-11.0 RBC 5.08 4.60-6.20 [...] Jul 08, 2024 06:18 PM Reporting Lab: [facility] [address] Performing Lab: [facility] [address] WBC 15.3 H 4.0-11.0 RBC 4.91 4.60-6.20 [...] Jul 08, 2024 08:41 AM Reporting Lab: [facility] [address] Performing Lab: [facility] [address] URINE COLOR YELLOW SPECIFIC GRAVITY >1.050 H [...] Jul 07, 2024 04:49 PM Reporting Lab: [facility] [address] Performing Lab: [facility] [address] WBC 17.5 H 4.0-11.0 RBC 4.88 4.60-6.20 [...] Jul 07, 2024 04:49 PM Reporting Lab: [facility] [address] Performing Lab: [facility] [address] PHOSPHORUS 2.6 mg/dL 2.3-4.3 Jul 08, 2024 09:54 AM [facility] BASIC METABOLIC PANEL+MG Specimen Type: PLASMA Comment: Specimen received in Lab at: 0952 Ordering Provider: JUANCARLOS ECHOLS S Report Released Date/Time: Jul 07, 2024 04:49 PM Reporting Lab: [facility] [address] Performing Lab: [facility] [address] CREATININE 0.9 mg/dL 0.7-1.2 UREA NITROGEN 26 [...] Jul 07, 2024 12:26 PM Reporting Lab: [facility] [address] Performing Lab: [facility] [address] C DIFF TOX B GENE PCR NEGATIVE Negative Jul 07, 2024 07:41 AM [facility] PHOSPHORUS Specimen Type: PLASMA No comment entered. Ordering Provider: JEVON ZAZUETA Report Released Date/Time: Jul 06, 2024 03:44 PM Reporting Lab: [facility] [address] Performing Lab: [facility] [address] PHOSPHORUS 3.1 mg/dL 2.3-4.3 Jul 07, 2024 07:41 AM [facility] BASIC METABOLIC PANEL+MG Specimen Type: PLASMA No comment entered. Ordering Provider: JEVON ZAZUETA Report Released Date/Time: Jul 06, 2024 03:44 PM Reporting Lab: [facility] [address] Performing Lab: [facility] [address] CREATININE 0.9 mg/dL 0.7-1.2 UREA NITROGEN 20 [...] Jul 06, 2024 03:44 PM Reporting Lab: [facility] [address] Performing Lab: [facility] [address] WBC 21.2 H 4.0-11.0 RBC 5.09 4.60-6.20 [...] Jul 05, 2024 01:22 PM Reporting Lab: [facility] [address] Performing Lab: [facility] [address] WBC 18.0 H 4.0-11.0 RBC 4.83 4.60-6.20 [...] Jul 05, 2024 01:22 PM Reporting Lab: [facility] [address] Performing Lab: [facility] [address] PHOSPHORUS 3.6 mg/dL 2.3-4.3 Jul 06, 2024 07:21 AM [facility] BASIC METABOLIC PANEL+MG Specimen Type: PLASMA No comment entered. Ordering Provider: JEVON ZAZUETA Report Released Date/Time: Jul 05, 2024 01:22 PM Reporting Lab: [facility] [address] Performing Lab: [facility] [address] CREATININE 0.7 mg/dL 0.7-1.2 UREA NITROGEN 12 [...] Jul 04, 2024 09:39 AM Reporting Lab: [facility] [address] Performing Lab: [facility] [address] MAGNESIUM 2.0 mg/dL 1.6-2.6 Jul 05, 2024 07:17 AM [facility] PHOSPHORUS Specimen Type: PLASMA No comment entered. Ordering Provider: JUANCARLOS ECHOLS S Report Released Date/Time: Jul 04, 2024 09:39 AM Reporting Lab: [facility] [address] Performing Lab: [facility] [address] PHOSPHORUS 2.0 mg/dL L 2.3-4.3 Jul 05, 2024 07:17 AM [facility] BASIC METABOLIC PANEL+MG Specimen Type: PLASMA No comment entered. Ordering Provider: JUANCARLOS ECHOLS S Report Released Date/Time: Jul 04, 2024 09:39 AM Reporting Lab: [facility] [address] Performing Lab: [facility] [address] CREATININE 0.7 mg/dL 0.7-1.2 UREA NITROGEN 12 [...] Jul 04, 2024 09:39 AM Reporting Lab: [facility] [address] Performing Lab: [facility] [address] WBC 18.3 H 4.0-11.0 RBC 4.49 L [...] Jul 03, 2024 06:31 PM Reporting Lab: [facility] [address] Performing Lab: [facility] [address] CREATININE 0.7 mg/dL 0.7-1.2 UREA NITROGEN 16 [...] Jul 03, 2024 06:31 PM Reporting Lab: [facility] [address] Performing Lab: [facility] [address] PHOSPHORUS 2.8 mg/dL 2.3-4.3 Jul 04, 2024 07:16 AM [facility] CBC Specimen Type: BLOOD No comment entered. Ordering Provider: GABINO CAMERON Report Released Date/Time: Jul 03, 2024 06:31 PM Reporting Lab: [facility] [address] Performing Lab: [facility] [address] WBC 20.6 H 4.0-11.0 RBC 4.63 4.60-6.20 [...] Jul 03, 2024 06:31 PM Reporting Lab: [facility] [address] Performing Lab: [facility] [address] WBC 20.6 H 4.0-11.0 RBC 4.63 4.60-6.20 [...] Jul 03, 2024 06:31 PM Reporting Lab: [facility] [address] Performing Lab: [facility] [address] BNP 292 pg/mL H <99 Jul 03, 2024 10:32 PM [facility] FINGERSTICK GLUCOSE Specimen Type: BLOOD Comment: Save Result Nurse Notified Ordering Provider: KATELYNN PERSON Report Released Date/Time: Jul 03, 2024 10:50 PM Reporting Lab: [facility] [address] Performing Lab: [facility] [address] FINGERSTICK GLUCOSE 126 mg/dL H 70-100 Jul 03, 2024 05:33 PM [facility] FINGERSTICK GLUCOSE Specimen Type: BLOOD Comment: Save Result Nurse Notified Ordering Provider: KATELYNN PERSON Report Released Date/Time: Jul 03, 2024 05:46 PM Reporting Lab: [facility] [address] Performing Lab: [facility] [address] FINGERSTICK GLUCOSE 141 mg/dL H 70-100 Jul 03, 2024 02:31 PM [facility] POC ABG/ELECTROLYTES Specimen Type: ARTERIAL BLOOD Comment: FIO2 = 97% Patient Temp: 36.0 C Sample Type = ARTERIAL Ordering Provider: MAZIN ARREDONDO Report Released Date/Time: Jul 03, 2024 01:48 PM Reporting Lab: [facility] [address] Performing Lab: [facility] [address] POC PH 7.387 7.35-7.45 POC PCO2 34.4 [...] Jul 03, 2024 01:48 PM Reporting Lab: [facility] [address] Performing Lab: [facility] [address] POC PH 7.280 L 7.35-7.45 POC PCO2 [...] Jun 12, 2024 04:01 PM Reporting Lab: [facility] [address] Performing Lab: [facility] [address] URINE COLOR YELLOW SPECIFIC GRAVITY 1.031 1.003-1.03 [...] Jun 12, 2024 03:59 PM Reporting Lab: [facility] [address] Performing Lab: [facility] [address] WBC 15.8 H 4.0-11.0 RBC 5.11 4.60-6.20 [...] Jun 23, 2024 06:07 PM Reporting Lab: [facility] [address] Performing Lab: [facility] [address] CREATININE 0.8 mg/dL 0.7-1.2 UREA NITROGEN 13 [...] Jun 23, 2024 06:07 PM Reporting Lab: [facility] [address] Performing Lab: [facility] [address] WBC 15.5 H 4.0-11.0 RBC 4.93 4.60-6.20 [...] Jun 22, 2024 05:51 PM Reporting Lab: [facility] [address] Performing Lab: [facility] [address] CREATININE 0.7 mg/dL 0.7-1.2 UREA NITROGEN 16 [...] Jun 22, 2024 05:51 PM Reporting Lab: [facility] [address] Performing Lab: [facility] [address] WBC 14.9 H 4.0-11.0 RBC 5.09 4.60-6.20 [...] Jun 22, 2024 05:51 PM Reporting Lab: [facility] [address] Performing Lab: [facility] [address] WBC 16.9 H 4.0-11.0 RBC 5.28 4.60-6.20 HGB 16.9 g/dL 13.5-17.9 HCT 50.4 41.0-54.0 MCV 95.5 fL 80.0-100.0 MCH 32.0 pg 27.0-33.0 MCHC 33.5 g/dL 32.0-37.5 PLT 223 150-400 MPV 10.9 fL 9.1-13.0 RDW 14.0 11.5-14.5 Jun 22, 2024 06:10 PM [facility] COMPREHENSIVE METABOLIC PANEL+MG Specimen Type: PLASMA No comment entered. Ordering Provider: JEVON ZAZUETA Report Released Date/Time: Jun 22, 2024 05:51 PM Reporting Lab: [facility] [address] Performing Lab: [facility] [address] CREATININE 0.7 mg/dL 0.7-1.2 UREA NITROGEN 17 [...] >90 >60 Jun 21, 2024 06:48 PM [facility] URINALYSIS Specimen Type: URINE No comment entered. Ordering Provider: DELIA MARTINEZ Report Released Date/Time: Jun 21, 2024 05:45 PM Reporting Lab: [facility] [address] Performing Lab: [facility] [address] URINE COLOR YELLOW SPECIFIC GRAVITY 1.041 H [...] Jun 21, 2024 06:07 PM Reporting Lab: [facility] [address] Performing Lab: [facility] [address] POC CREATININE 1.1 mg/dL 0.6-1.3 Jun 21, 2024 05:30 PM [facility] POC ABG/LACTATE Specimen Type: VENOUS BLOOD No comment entered. Ordering Provider: DELIA MARTINEZ Report Released Date/Time: Jun 21, 2024 06:07 PM Reporting Lab: [facility] [address] Performing Lab: [facility] [address] POC PH 7.470 H 7.31-7.41 POC PCO2 [...] Jun 21, 2024 05:30 PM Reporting Lab: [facility] [address] Performing Lab: [facility] [address] .INR 1.2 H 0.8-1.1 .PT 13.9 s H 9.4-12.5 Jun 21, 2024 05:24 PM [facility] LIPASE Specimen Type: PLASMA No comment entered. Ordering Provider: DELIA MARTINEZ Report Released Date/Time: Jun 21, 2024 05:30 PM Reporting Lab: [facility] [address] Performing Lab: [facility] [address] LIPASE 32 U/L <60 Jun 21, 2024 05:24 PM [facility] EXTRA GOLD GEL TUBE Specimen Type: SERUM No comment entered. Ordering Provider: DELIA MARTINEZ Report Released Date/Time: Jun 21, 2024 05:41 PM Reporting Lab: [facility] [address] Performing Lab: [facility] [address] EXTRA GOLD GEL TUBE RECEIVED Jun 21, 2024 05:24 PM [facility] COMPREHENSIVE METABOLIC PANEL+MG Specimen Type: PLASMA No comment entered. Ordering Provider: DELIA MARTINEZ Report Released Date/Time: Jun 21, 2024 05:30 PM Reporting Lab: [facility] [address] Performing Lab: [facility] [address] CREATININE 0.9 mg/dL 0.7-1.2 UREA NITROGEN 29 [...] Jun 21, 2024 05:30 PM Reporting Lab: [facility] [address] Performing Lab: [facility] [address] WBC 21.3 H 4.0-11.0 RBC 5.48 4.60-6.20 [...] May 28, 2024 09:02 AM Reporting Lab: [facility] [address] Performing Lab: [facility] [address] .INR 1.0 0.8-1.1 .PT 11.8 s 9.4-12.5 [...] May 28, 2024 09:02 AM Reporting Lab: [facility] [address] Performing Lab: [facility] [address] HEMOGLOBIN A1C 4.9 4.0-6.0 Jun 08, 2024 10:59 AM [facility] CBC Specimen Type: BLOOD No comment entered. Ordering Provider: MARYBETH POWELL Report Released Date/Time: May 28, 2024 09:02 AM Reporting Lab: [facility] [address] Performing Lab: [facility] [address] WBC 16.1 H 4.0-11.0 RBC 5.02 4.60-6.20 [...] May 28, 2024 09:02 AM Reporting Lab: [facility] [address] Performing Lab: [facility] [address] CREATININE 0.9 mg/dL 0.7-1.2 UREA NITROGEN 15 [...] Jul 03, 2024 11:[address] [facility] Jul 03, 2024 10:[address] [facility] Jul 03, 2024 08:[address] [facility] Jul 03, 2024 07:[address] [facility] Jul 03, 2024 07:[address] [facility] Social History: Smoking Status [...] The data comes from all [facility]. Date Advance Directives Provider Source Mar 23, 2016 CLINICAL WARNING TIM TERAN CARLOSEDUARDO LOZANO [facility] Radiology Reports: +/- [...] VIEWS PA A ND LAT: FLACA WEAVER [id number] -1950 M Exm Date: JUL 08, 2024@10:09 Req Phys: KATELYNN PERSON Loc: 07-08-2024@11:49 Img Loc: MAIN X-RAY Service: [place] [address] (Case 24 COMPLETE) CHEST 2 VIEWS PA AND LAT (RAD Detailed) CPT:96989 Reason for Study: Uptrending WBC, POD 5 [...] 08, 2024 Date Verified: JUL 08, 2024 Pattern Gater E-Sig: Report: CHEST 2 VIEWS PA AND [...] cardiopulmonary disease. READING PHYSICIAN: Sarbjit Vaughn M.D. -[id number] 07/08/2024 12:46 [facility] National Teleradiology Program [phone] (For Medical Practitioner Use Only) Attention Patients / Veterans: If you have questions or concerns about these test results, please contact your ordering provider or primary care team. Primary Interpreting Staff: RADIOLOGY,OUTSIDE SERVICE, Staff Physician / RADIOLOGY,OUTSIDE SERVICE [facility] Jul 08, 2024 10:[address] (AP) ABDOMEN/PE LVIS W CONTRAST: MEGFLACA YAMIL [id number] -1950 M Exm Date: JUL 08, 2024@10:00 Req Phys: KATELYNN PERSON Pat Loc: 07-08-2024@12:07 Img Loc: CT IMAGING Service: [place] [address] (Case 22 COMPLETE) CT (AP) ABDOMEN/PELVIS W CONTRAST(CT Detailed) CPT:20014 Contrast Media : Non-ionic Iodinated Reason for [...] .CREAT EGFR(CKD-E >90 Ref: >=60 Allergies: ([place] only) TERAZOSIN (Mar 13, 2015) Report Status: Verified Date Reported: JUL 08, 2024 Date Verified: JUL 08, 2024 Pattern Gater E-Sig: Report: CT (AP) ABDOMEN/PELVIS W CONTRAST [...] as noted above READING PHYSICIAN: Celestino Blanc -[id number] 07/08/2024 13:04 [facility] Dynamic Social Network Analysis Teleradiology Program [phone] (For Medical Practitioner Use Only) Attention Patients / Veterans: If you have questions or concerns about these test results, please contact your ordering provider or primary care team. Primary Interpreting Staff: RADIOLOGY,OUTSIDE SERVICE, Staff Physician / RADIOLOGY,OUTSIDE SERVICE [facility] Jun 22, 2024 11:49 AM ABSCESS DRAIN PLAC EMENT PERITONEAL (P): FLACA WEAVER [id number] -1950 M Exm Date: JUN 22, 2024@11:49 Req Phys: ANGELA HOLDEN Pat Loc: [facility]-22-2024@17:14 Img Loc: INTERVENTIONAL RADIOLOGY Service: [place] [address] (Case [id number] COMPLETE) IR PERITONEAL/RETROPERITONEAL PER(ANI Detailed) CPT:13911 Reason for Study: diverticulitis with abscess (Case [id number] COMPLETE) IR MOD SEDATION 10-22 MIN (ANI Detailed) CPT:50100 Clinical History: IS NOT under investigation for COVID-19 or is COVID-19 negative 73 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 please place abscess drain. Contact number for responsible provider who can be reached for any questions or notifications of critical findings: [phone] n/a LAST CREATININE 0.9 (06/21/24) Report Status: Verified Date Reported: JUN 22, 2024 Date Verified: JUN 22, 2024 Pattern Gater E-Sig:/ES/LISA PENDLETON MD Report: PROCEDURES: Placement of [...] anesthesia. Using real-time CT fluoroscopy, a 5 Greek SWYF centesis catheter was advanced into the collection in the left pelvis. A wire was coiled in the collection. The tract into the collection was dilated to accommodate the 12 Greek locking pigtail drainage catheter. There was return [...] Primary Interpreting Staff: LISA PENDLETON MD, RADIOLOGIST (Pattern Gater) /LISA CARDONA [facility] Jun 22, 2024 11:[address] NEEDLE PLACEMEN T (P): FLACA WEAVER [id number] -1950 M Exm Date: JUN 22, 2024@11:48 Req Phys: ANGELA HOLDEN Loc: 2K/06-22-2024@17:14 Img Loc: CT IMAGING Service: [place] [address] (Case [id number] COMPLETE) CT SCAN FOR NEEDLE PLACEMENT (CT Detailed) CPT:49097 Reason for Study: l pelvic abscess drain Clinical History: Report Status: Verified Date Reported: JUN 22, 2024 Date Verified: JUN 22, 2024 Pattern Gater E-Sig:/ES/LISA PENDLETON MD Report: PROCEDURES: Placement of [...] anesthesia. Using real-time CT fluoroscopy, a 5 Greek [employer] catheter was advanced into the collection in the left pelvis. A wire was coiled in the collection. The tract into the collection was dilated to accommodate the 12 Greek locking pigtail drainage catheter. There was return [...] Primary Interpreting Staff: LISA PENDLETON MD, RADIOLOGIST (Pattern Gater) /JRT LISA PENDLETON [facility] Jun 21, 2024 06:[address] (AP) ABDOMEN/PE LVIS (P): FLACA WEAVER [id number] -1950 M Exm Date: JUN 21, 2024@18:09 Req Phys: DELIA MARTINEZ Loc: [facility] (Re Img Loc: CT IMAGING Service: [place] [address] (Case [id number] COMPLETE) CT (AP) ABDOMEN/PELVIS W CONTRAST(CT Detailed) CPT:34856 Contrast Media : Non-ionic Iodinated Reason for [...] .CREAT EGFR(CKD-E >90 Ref: >=60 Allergies: ([place] only) TERAZOSIN (Mar 13, 2015) Defer to [...] 21, 2024 Date Verified: JUN 21, 2024 Pattern Gater E-Sig:/ALEXI/CARLOS A CUNNINGHAM DO Report: EXAMINATION: CT [...] Interpreting Staff: CARLOS A CUNNINGHAM DO, RADIOLOGIST (Pattern Gater) /CARLOS A ROWELL [facility] Lab: [facility] [CLIA# [id number]] [place] [address] - - - - - - - [...] - PATHOLOGY REPORT Accession No. [id number] - - - - - - - [...] - PATHOLOGY REPORT Accession No. [id number] - - - - - - - [...] Second circumferential surgical margin, en face; E-F: Surgical Nurse Practitioner diverticula; G: Surgical Nurse Practitioner section of mesentery; H: Random door to door sales representative section of additional adipose tissue [...] By: [facility] [CLIA# [id number]] [place] [address] $FTR - - - - - - [...] - - FLACA WEAVER STANDARD FORM 515 ID:[id number] SEX:M :1950 AGE: 73 LOC:30842 ADM:Jun DX:DIVERTICULITIS PCP: Jatinder Cabrera /alexi/ EDUARDO PALMOARES MD STAFF PATHOLOGIST Signed: 07/06/2024 10:40 EDUARDO PALOMARES [facility] Jun 22, 2024 01:15 PM LR MICROBIOLOGY RE PORT: Reporting Lab: [facility] [CLIA# [id number]] [place] [address] Accession [UID]: [id number] [[id number]] Received: Jun 22, 2024@13:38 Collection sample: FLUID Collection date: Jun 22, 2024 13:15 Provider: ANGELA HOLDEN Comment on specimen: LLQ ABSCESS, RECEIVED IN ANAEROBIC TRANSPORT VIAL Test(s) ordered: GRAM STAIN.................... completed: Jun 22, 2024 15:03 CULTURE & SUSCEPTIBILITY...... completed: Jun 25, 2024 * BACTERIOLOGY FINAL REPORT => Jun 25, 2024 10:56 TECH CODE: [id number] GRAM STAIN: DIRECT SMEAR of specimen before [...] By: [facility] [CLIA# [id number]] [place] [address] [facility] Jun 22, 2024 01:15 PM LR MICROBIOLOGY RE PORT: Reporting Lab: [facility] [CLIA# [id number]] [place] [address] Accession [UID]: [id number] [[id number]] Received: Jun 22, 2024@13:38 Collection sample: FLUID Collection date: Jun 22, 2024 13:15 Provider: ANGELA HOLDEN Comment on specimen: LLQ ABSCESS, RECEIVED IN ANAEROBIC TRANSPORT VIAL Test(s) ordered: ANAEROBIC CULTURE............. completed: Jun 28, 2024 * BACTERIOLOGY FINAL REPORT => Jun 28, 2024 10:08 TECH CODE: [id number] CULTURE RESULTS: HEAVY GROWTH MIXED ANAEROBES Comment: [...] By: [facility] [CLIA# [id number]] [place] [address] [facility] Jun 21, 2024 06:12 PM LR MICROBIOLOGY RE PORT: Reporting Lab: [facility] [CLIA# [id number]] [place] [address] Accession [UID]: [id number] [[id number]] Received: Jun 21, 2024@18:12 Collection sample: BLOOD [...] By: [facility] [CLIA# [id number]] [place] [address] [facility] Jun 21, 2024 06:11 PM LR MICROBIOLOGY RE PORT: Reporting Lab: [facility] [CLIA# [id number]] [place] [address] Accession [UID]: [id number] [[id number]] Received: Jun 21, 2024@18:11 Collection sample: BLOOD [...] By: [facility] [CLIA# [id number]] [place] [address] [facility] Jun 08, 2024 11:00 AM LR MICROBIOLOGY RE PORT: Reporting Lab: [facility] [CLIA# [id number]] [place] [address] Accession [UID]: [id number] [[id number]] Received: Jun 08, 2024@11:00 Collection sample: URINE Collection date: Jun 08, 2024 11:00 Provider: MARYBETH POWELL Comment on specimen: urine Test(s) ordered: CULTURE & SUSCEPTIBILITY...... completed: Jun 09, 2024 * BACTERIOLOGY FINAL REPORT => Jun 09, 2024 19:12 TECH CODE: [id number] CULTURE RESULTS: ESCHERICHIA COLI - Quantity: >100,000 [...] By: [facility] [CLIA# [id number]] [place] [address] [facility] Encounter Notes: All associated encounter notes This section contains the clinical notes associated to the Encounter. Date/Time Encounter Note(s) Provider Source Jul 03, 2024 01:00 AM CRITICAL CARE UNIT NOTE: LOCAL TITLE: [facility] RESPIRATORY THERAPY FLOWSHEET STANDARD TITLE: CRITICAL CARE UNIT NOTE DATE OF NOTE: JUL 03, 2024@01:00 ENTRY DATE: JUL 04, 2024@15:11:19 AUTHOR: KELLY WINKLER EXP COSIGNER: URGENCY: STATUS: COMPLETED This is a place aranda only. Please see Trada to view document. /es/ DUDLEY-CHRISTOPHER SYSTEM ICU DOCUMENT IMPORT Signed: 07/04/2024 15:11 KELLY WINKLER [facility]
--- OUTSIDE RECORDS SUMMARY | 2024-07-16 07:43 | XMS_ITS | Encounter Summary ---
Author Name [facility] Organization [facility] Address [address] [place] [address] Care Team Providers Care Commodity Analyst Name Role Phone JATINDER CABRERA Primary [...] PART A Sep 29, 2016 PART A [id number] [phone] JUDY WEAVER PATIENT Selected Encounter This section includes the information on record at ID for the Encounter. Date/Time Encounter Type Encounter Description Reason Provider Source Jul 04, 2024 11:45 AM OFF/OP EST MAY X REQ PHY/QHP ANESTHESIA PRE/POST-OP CONSULT ICD-10-CM Z51.89 Encounter for other specified aftercare EDUARDO ALEJO Encounter Template Text not used by ID Assessments - Encounter Diagnoses This section includes the primary and secondary diagnoses documented for the Encounter. Date/Time Primary/Secondary Diagnosis Diagnosis Name Provider Source Jul 04, 2024 11:48 AM PRIMARY Encounter for other specified aftercare EDUARDO ALEJO [facility] Plan of Treatment: Future Appointments (+ 6 months) and Future Tests (+/- 45 days) The Plan of Treatment section includes future care activities for the patient from [facility] This section includes future appointments and future orders which are active, pending or scheduled. Future Appointments This section includes appointments that were scheduled to occur 6 months from the date of the Encounter, up to a maximum of 20 appointments. The data comes from all [facility] facilities. Appointment Date/Time Appointment Type Appointme nt Facility Name Jul 13, 2024 08:15 AM AMBULATORY - NONE [facility] Active, Pending, and Scheduled Orders This section includes a listing of several types of active, pending, and scheduled orders, including clinic medications orders, diagnostic test orders, procedure orders and consult orders; where the start date of the order is 45 days before the date of the Encounter or 45 days after the date of theEncounter. The data comes from all [facility]. Test Date/Time Test Type Test Details [...] Order TYPE & SCREEN - LAB BLOOD [facility] Jul 03, 2024 12:00 AM Laboratory - Blood Bank Order TYPE & SCREEN - LAB BLOOD [facility] Jul 16, 2024 12:00 AM Laboratory - Chemi stry Order CBC BLOOD [facility] Jul 17, 2024 12:00 AM Laboratory - Chemi stry Order BASIC METABOLIC PANEL+MG PLASMA [facility] Lab Results: +/- 30 days of the encounter This section includes the Chemistry and Hematology Lab Results on record with ID for the patient. Radiology Reports and Pathology [...] PM Reporting Lab: [facility] [address] Performing Lab: [facility] [address] PHOSPHORUS 3.0 mg/dL 2.3-4.3 Jul 10, 2024 07:16 AM [facility] BASIC METABOLIC PANEL+MG Specimen Type: PLASMA No comment entered. Ordering Provider: JUANCARLOS ECHOLS S Report Released Date/Time: Jul 09, 2024 12:23 PM Reporting Lab: [facility] [address] Performing Lab: [facility] [address] CREATININE 0.7 mg/dL 0.7-1.2 UREA NITROGEN 27 [...] PM Reporting Lab: [facility] [address] Performing Lab: [facility] [address] WBC 18.8 H 4.0-11.0 RBC 5.08 4.60-6.20 [...] PM Reporting Lab: [facility] [address] Performing Lab: [facility] [address] WBC 15.3 H 4.0-11.0 RBC 4.91 4.60-6.20 [...] AM Reporting Lab: [facility] [address] Performing Lab: [facility] [address] URINE COLOR YELLOW SPECIFIC GRAVITY >1.050 H [...] PM Reporting Lab: [facility] [address] Performing Lab: [facility] [address] WBC 17.5 H 4.0-11.0 RBC 4.88 4.60-6.20 [...] PM Reporting Lab: [facility] [address] Performing Lab: [facility] [address] PHOSPHORUS 2.6 mg/dL 2.3-4.3 Jul 08, 2024 09:54 AM [facility] BASIC METABOLIC PANEL+MG Specimen Type: PLASMA Comment: Specimen received in Lab at: [id number] Ordering Provider: JUANCARLOS ECHOLS Report Released Date/Time: Jul 07, 2024 04:49 PM Reporting Lab: [facility] [address] Performing Lab: [facility] [address] CREATININE 0.9 mg/dL 0.7-1.2 UREA NITROGEN 26 [...] PM Reporting Lab: [facility] [address] Performing Lab: [facility] [address] C DIFF TOX B GENE PCR NEGATIVE Negative Jul 07, 2024 07:41 AM [facility] PHOSPHORUS Specimen Type: PLASMA No comment entered. Ordering Provider: JEVON ZAZUETA Report Released Date/Time: Jul 06, 2024 03:44 PM Reporting Lab: [facility] [address] Performing Lab: [facility] [address] PHOSPHORUS 3.1 mg/dL 2.3-4.3 Jul 07, 2024 07:41 AM [facility] BASIC METABOLIC PANEL+MG Specimen Type: PLASMA No comment entered. Ordering Provider: JEVON ZAZUETA Report Released Date/Time: Jul 06, 2024 03:44 PM Reporting Lab: [facility] [address] Performing Lab: [facility] [address] CREATININE 0.9 mg/dL 0.7-1.2 UREA NITROGEN 20 [...] PM Reporting Lab: [facility] [address] Performing Lab: [facility] [address] WBC 21.2 H 4.0-11.0 RBC 5.09 4.60-6.20 [...] PM Reporting Lab: [facility] [address] Performing Lab: [facility] [address] WBC 18.0 H 4.0-11.0 RBC 4.83 4.60-6.20 [...] PM Reporting Lab: [facility] [address] Performing Lab: [facility] [address] PHOSPHORUS 3.6 mg/dL 2.3-4.3 Jul 06, 2024 07:21 AM [facility] BASIC METABOLIC PANEL+MG Specimen Type: PLASMA No comment entered. Ordering Provider: JEVON ZAZUETA Report Released Date/Time: Jul 05, 2024 01:22 PM Reporting Lab: [facility] [address] Performing Lab: [facility] [address] CREATININE 0.7 mg/dL 0.7-1.2 UREA NITROGEN 12 [...] AM Reporting Lab: [facility] [address] Performing Lab: [facility] [address] MAGNESIUM 2.0 mg/dL 1.6-2.6 Jul 05, 2024 07:17 AM [facility] PHOSPHORUS Specimen Type: PLASMA No comment entered. Ordering Provider: JUANCARLOS ECHOLS S Report Released Date/Time: Jul 04, 2024 09:39 AM Reporting Lab: [facility] [address] Performing Lab: [facility] [address] PHOSPHORUS 2.0 mg/dL L 2.3-4.3 Jul 05, 2024 07:17 AM [facility] BASIC METABOLIC PANEL+MG Specimen Type: PLASMA No comment entered. Ordering Provider: JUANCARLOS ECHOLS S Report Released Date/Time: Jul 04, 2024 09:39 AM Reporting Lab: [facility] [address] Performing Lab: [facility] [address] CREATININE 0.7 mg/dL 0.7-1.2 UREA NITROGEN 12 [...] AM Reporting Lab: [facility] [address] Performing Lab: [facility] [address] WBC 18.3 H 4.0-11.0 RBC 4.49 L [...] PM Reporting Lab: [facility] [address] Performing Lab: [facility] [address] CREATININE 0.7 mg/dL 0.7-1.2 UREA NITROGEN 16 [...] PM Reporting Lab: [facility] [address] Performing Lab: [facility] [address] PHOSPHORUS 2.8 mg/dL 2.3-4.3 Jul 04, 2024 07:16 AM [facility] CBC Specimen Type: BLOOD No comment entered. Ordering Provider: GABINO CAMERON Report Released Date/Time: Jul 03, 2024 06:31 PM Reporting Lab: [facility] [address] Performing Lab: [facility] [address] WBC 20.6 H 4.0-11.0 RBC 4.63 4.60-6.20 [...] PM Reporting Lab: [facility] [address] Performing Lab: [facility] [address] WBC 20.6 H 4.0-11.0 RBC 4.63 4.60-6.20 [...] PM Reporting Lab: [facility] [address] Performing Lab: [facility] [address] BNP 292 pg/mL H <99 Jul 03, 2024 10:32 PM [facility] FINGERSTICK GLUCOSE Specimen Type: BLOOD Comment: Save Result Nurse Notified Ordering Provider: KATELYNN PERSON Report Released Date/Time: Jul 03, 2024 10:50 PM Reporting Lab: [facility] [address] Performing Lab: [facility] [address] FINGERSTICK GLUCOSE 126 mg/dL H 70-100 Jul 03, 2024 05:33 PM [facility] FINGERSTICK GLUCOSE Specimen Type: BLOOD Comment: Save Result Nurse Notified Ordering Provider: KATELYNN PERSON Report Released Date/Time: Jul 03, 2024 05:46 PM Reporting Lab: [facility] [address] Performing Lab: [facility] [address] FINGERSTICK GLUCOSE 141 mg/dL H 70-100 Jul 03, 2024 02:31 PM [facility] POC ABG/ELECTROLYTES Specimen Type: ARTERIAL BLOOD Comment: FIO2 = 97% Patient Temp: 36.0 C Sample Type = ARTERIAL Ordering Provider: MAZIN ARREDONDO Report Released Date/Time: Jul 03, 2024 01:48 PM Reporting Lab: [facility] [address] Performing Lab: [facility] [address] POC PH 7.387 7.35-7.45 POC PCO2 34.4 [...] PM Reporting Lab: [facility] [address] Performing Lab: [facility] [address] POC PH 7.280 L 7.35-7.45 POC PCO2 [...] PM Reporting Lab: [facility] [address] Performing Lab: [facility] [address] URINE COLOR YELLOW SPECIFIC GRAVITY 1.031 1.003-1.03 [...] PM Reporting Lab: [facility] [address] Performing Lab: [facility] [address] WBC 15.8 H 4.0-11.0 RBC 5.11 4.60-6.20 [...] PM Reporting Lab: [facility] [address] Performing Lab: [facility] [address] CREATININE 0.8 mg/dL 0.7-1.2 UREA NITROGEN 13 [...] PM Reporting Lab: [facility] [address] Performing Lab: [facility] [address] WBC 15.5 H 4.0-11.0 RBC 4.93 4.60-6.20 [...] PM Reporting Lab: [facility] [address] Performing Lab: [facility] [address] CREATININE 0.7 mg/dL 0.7-1.2 UREA NITROGEN 16 [...] PM Reporting Lab: [facility] [address] Performing Lab: [facility] [address] WBC 14.9 H 4.0-11.0 RBC 5.09 4.60-6.20 [...] PM Reporting Lab: [facility] [address] Performing Lab: [facility] [address] WBC 16.9 H 4.0-11.0 RBC 5.28 4.60-6.20 [...] PM Reporting Lab: [facility] [address] Performing Lab: [facility] [address] CREATININE 0.7 mg/dL 0.7-1.2 UREA NITROGEN 17 [...] PM Reporting Lab: [facility] [address] Performing Lab: [facility] [address] URINE COLOR YELLOW SPECIFIC GRAVITY 1.041 H [...] PM Reporting Lab: [facility] [address] Performing Lab: [facility] [address] POC CREATININE 1.1 mg/dL 0.6-1.3 Jun 21, 2024 05:30 PM [facility] POC ABG/LACTATE Specimen Type: VENOUS BLOOD No comment entered. Ordering Provider: DELIA MARTINEZ Report Released Date/Time: Jun 21, 2024 06:07 PM Reporting Lab: [facility] [address] Performing Lab: [facility] [address] POC PH 7.470 H 7.31-7.41 POC PCO2 [...] PM Reporting Lab: [facility] [address] Performing Lab: [facility] [address] .INR 1.2 H 0.8-1.1 .PT 13.9 s H 9.4-12.5 Jun 21, 2024 05:24 PM [facility] LIPASE Specimen Type: PLASMA No comment entered. Ordering Provider: DELIA MARTINEZ Report Released Date/Time: Jun 21, 2024 05:30 PM Reporting Lab: [facility] [address] Performing Lab: [facility] [address] LIPASE 32 U/L <60 Jun 21, 2024 05:24 PM [facility] EXTRA GOLD GEL TUBE Specimen Type: SERUM No comment entered. Ordering Provider: DELIA MARTINEZ Report Released Date/Time: Jun 21, 2024 05:41 PM Reporting Lab: [facility] [address] Performing Lab: [facility] [address] EXTRA GOLD GEL TUBE RECEIVED Jun 21, 2024 05:24 PM [facility] COMPREHENSIVE METABOLIC PANEL+MG Specimen Type: PLASMA No comment entered. Ordering Provider: DELIA MARTINEZ Report Released Date/Time: Jun 21, 2024 05:30 PM Reporting Lab: [facility] [address] Performing Lab: [facility] [address] CREATININE 0.9 mg/dL 0.7-1.2 UREA NITROGEN 29 [...] PM Reporting Lab: [facility] [address] Performing Lab: [facility] [address] WBC 21.3 H 4.0-11.0 RBC 5.48 4.60-6.20 [...] AM Reporting Lab: [facility] [address] Performing Lab: [facility] [address] .INR 1.0 0.8-1.1 .PT 11.8 s 9.4-12.5 Jun 08, 2024 10:59 AM [facility] CBC Specimen Type: BLOOD No comment entered. Ordering Provider: MARYBETH POWELL Report Released Date/Time: May 28, 2024 09:02 AM Reporting Lab: [facility] [address] Performing Lab: [facility] [address] WBC 16.1 H 4.0-11.0 RBC 5.02 4.60-6.20 [...] AM Reporting Lab: [facility] [address] Performing Lab: [facility] [address] HEMOGLOBIN A1C 4.9 4.0-6.0 Jun 08, 2024 10:59 AM [facility] BASIC METABOLIC PANEL+MG Specimen Type: PLASMA No comment entered. Ordering Provider: MARYBETH POWELL Report Released Date/Time: May 28, 2024 09:02 AM Reporting Lab: [facility] [address] Performing Lab: [facility] [address] CREATININE 0.9 mg/dL 0.7-1.2 UREA NITROGEN 15 [...] PM 97.8 55 159/73 16 96 4 [facility] Jul 04, 2024 02:15 PM 56 138/64 16 97 4 [facility] Jul 04, 2024 12:40 PM 97.9 57 152/70 16 95 5 [facility] Jul 04, 2024 10:39 AM 59 132/74 16 96 4 [facility] Jul 04, 2024 08:45 AM 98 61 148/67 16 97 4 [facility] Social History: Smoking Status (Most current) and Tobacco Use (All prior to encounter date) This section includes the most current, and the historical, smoking and tobacco- related health factors from the ID facility where the Encounter took place. Current Smoking Status This section includes the most current smoking, or tobacco-related health factor, from the ID facility where the Encounter took place. Date/Time Current Smoking Status Comment Juan Manuel putnam May 15, 2024 08:30 AM [facility]BACCO FORMER USER [facility] Tobacco Use History This section includes a history of the smoking, or tobacco-related health factors, that were collected on or before the date of the Encounter. The data comes from the ID facility where the Encounter took place. Date/Time [...] ALL of a patient's completed or amended ID Advance and Rescinded Directives. The entries below indicate that a directive exists for the patient, but an actual copy is not included with this document. The data comes from all ID facilities. Date Advance Directives Provider Source Mar 23, 2016 VALARIE WARNING [facility] [...] the Encounter. The data comes from all ID treatment facilities. Date/Time Radiology Report Provider Source Jul 08, 2024 10:09 AM CHEST 2 VIEWS PA A ND LAT: FLACA WEAVER [id number] -1950 M Exm Date: JUL 08, 2024@10:09 Req Phys: KATELYNN PERSON Pat Loc: G/07-08-2024@11:49 Img Loc: MAIN X-RAY Service: [place] [address] (Case 24 COMPLETE) CHEST 2 VIEWS PA AND LAT (RAD Detailed) CPT:78449 Reason for Study: Uptrending WBC, POD 5 [...] 08, 2024 Date Verified: JUL 08, 2024 Second Operator E-Sig: Report: CHEST 2 VIEWS PA AND LAT HISTORY: Uptrending WBC, POD 5 COMPARISON: CT chest 11/12/2022 TECHNIQUE: Frontal and lateral views of the chest, submitted to the ID National Teleradiology Program (NTP) for interpretation. FINDINGS: Lungs: Clear. No focal consolidation. No pulmonary edema. Pleura: No pleural effusion or pneumothorax. Mediastinum: Normal size and contour. Bones: Unremarkable. Impression: No acute cardiopulmonary disease. READING PHYSICIAN: Sarbjit Vaughn M.D. -[phone] 07/08/2024 12:46 EST [facility] National Teleradiology Program [phone] (For Medical Practitioner Use Only) Attention Patients / Veterans: If you have questions or concerns about these test results, please contact your ordering provider or primary care team. Primary Interpreting Staff: RADIOLOGY,OUTSIDE SERVICE, Staff Physician / RADIOLOGY,OUTSIDE SERVICE [facility] Jul 08, 2024 10:[address] (AP) ABDOMEN/PE LVIS W CONTRAST: FLACA WEAVER [id number] -1950 M Exm Date: JUL 08, 2024@10:00 Req Phys: KATELYNN PERSON [facility] Loc: 2KG/07-08-2024@12:07 Img Loc: CT IMAGING Service: [place] [address] (Case 22 COMPLETE) CT (AP) ABDOMEN/PELVIS W CONTRAST(CT Detailed) CPT:81886 Contrast Media : Non-ionic Iodinated Reason for [...] PLASMA .CREAT EGFR(CKD-E >90 Ref: >=60 Allergies: ([place] only) TERAZOSIN (Mar 13, 2015) Report Status: Verified Date Reported: JUL 08, 2024 Date Verified: JUL 08, 2024 Second Operator E-Sig: Report: CT (AP) ABDOMEN/PELVIS W CONTRAST HISTORY: POD 5, Uptrending WBC - Concern for Abscess/other infection COMPARISON: June 21, 2024 TECHNIQUE: CT abdomen and pelvis was performed after intravenous contrast. Axial, sagittal and coronal reformatted images. The study was performed at the local ID facility and images were sent to the ID National Teleradiology Program (NTP) for interpretation. Number [...] as noted above READING PHYSICIAN: Celestino Blanc -[phone] 07/08/2024 13:04 [facility] National Teleradiology Program [phone] (For Medical Practitioner Use Only) Attention Patients / Veterans: If you have questions or concerns about these test results, please contact your ordering provider or primary care team. Primary Interpreting Staff: RADIOLOGY,OUTSIDE SERVICE, Staff Physician / RADIOLOGY,OUTSIDE SERVICE [facility] Jun 22, 2024 11:49 AM ABSCESS DRAIN PLAC EMENT PERITONEAL (P): FLACA WEAVER [id number] -1950 M Ex Date: JUN 22, 2024@11:49 Req Phys: ADINA,ANGELA K Pat Loc: 2K/06-22-2024@17:14 Img Loc: INTERVENTIONAL RADIOLOGY Service: [place] [address] (Case [id number] COMPLETE) IR PERITONEAL/RETROPERITONEAL PER(ANI Detailed) CPT:27945 Reason for Study: diverticulitis with abscess (Case 3570 COMPLETE) IR MOD SEDATION 10-22 MIN (ANI Detailed) CPT:64077 Clinical History: [place] IS NOT under investigation for COVID-19 or is COVID-19 negative 73 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 please place abscess drain. Contact number for responsible provider who can be reached for any questions or notifications of critical findings: [phone] n/a LAST CREATININE 0.9 (06/21/24) Report Status: Verified Date Reported: JUN 22, 2024 Date Verified: JUN 22, 2024 Second Operator E-Sig:/ES/LISA PENDLETON MD Report: PROCEDURES: Placement [...] Using real-time CT fluoroscopy, a 5 Lebanese Kiboo.comesis catheter was advanced into the collection in [...] Primary Interpreting Staff: LISA PENDLETON MD, RADIOLOGIST (Second Operator) /LISA CARDONA [facility] Jun 22, 2024 11:[address] NEEDLE PLACEMEN T (P): FLACA WEAVER [id number] -1950 M Exm Date: JUN 22, 2024@11:48 Req Phys: ANGELA HOLDEN Pat Loc: [facility]/06-22-2024@17:14 Img Loc: CT IMAGING Service: [place] [address] (Case [id number] COMPLETE) CT SCAN FOR NEEDLE PLACEMENT (CT Detailed) CPT:66822 Reason for Study: l pelvic abscess drain Clinical History: Report Status: Verified Date Reported: JUN 22, 2024 Date Verified: JUN 22, 2024 Second Operator E-Sig:/ES/LISA PENDLETON MD Report: PROCEDURES: Placement [...] Using real-time CT fluoroscopy, a 5 Lebanese Remark catheter was advanced into the collection in [...] Primary Interpreting Staff: LISA PENDLETON MD, RADIOLOGIST (Second Operator) /JRT LISA PENDLETON [facility] Jun 21, 2024 06:[address] (AP) ABDOMEN/PE LVIS (P): FLACA WEAVER [id number] -1950 M Exm Date: JUN 21, 2024@18:09 Req Phys: DELIA MARTINEZ Loc: [facility]ALK-[facility] (Re Img Loc: CT IMAGING Service: [place] [address] (Case [id number] COMPLETE) CT (AP) ABDOMEN/PELVIS W CONTRAST(CT Detailed) CPT:23511 Contrast Media : Non-ionic Iodinated Reason for [...] PLASMA .CREAT EGFR(CKD-E >90 Ref: >=60 Allergies: ([place] only) TERAZOSIN (Mar 13, 2015) Defer to [...] 21, 2024 Date Verified: JUN 21, 2024 Second Operator E-Sig:/ES/CARLOS A CUNNINGHAM DO Report: EXAMINATION: [...] Interpreting Staff: CARLOS A CUNNINGHAM DO, RADIOLOGIST (Second Operator) /CARLOS A ROWELL [facility] Pathology Reports: [...] the Encounter. The data comes from all ID treatment facilities. Date/Time Pathology Report Provider Source Jul 03, 2024 05:59 AM LR SURGICAL PATHOL OGY REPORT: LOCAL TITLE: LR SURGICAL PATHOLOGY REPORT STANDARD TITLE: PATHOLOGY REPORT DATE OF NOTE: JUL 06, 2024@10:40:48 ENTRY DATE: JUL 06, 2024@10:40:48 AUTHOR: EDUARDO PALOMARES EXP COSIGNER: URGENCY: STATUS: COMPLETED $APHDR Reporting Lab: [facility] [CLIA# [id number]] [place] [address] - - - - - - - [...] - PATHOLOGY REPORT Accession No. [id number] - - - - - - - [...] - PATHOLOGY REPORT Accession No. [id number] - - - - - - - [...] Second circumferential surgical margin, en face; E-F: Assembly Line Inspector diverticula; G: Assembly Line Inspector section of mesentery; H: Random sales solutions [...] Pathology Report Performed By: [facility] [CLIA# [id number]] [place] [address] $FTR - - - - - - - - - - - - - - - - - - - - - - - - - - - - - - - - - - - - - - - - (End of report) EDUARDO PALOMARES MD [facility] Date Jul 06, 2024 - - - - - - - - - - - - - - - - - - - - - - - - - - - - - - - - - - - - - - - - FLACA WEAVER STANDARD FORM 515 ID:[id number] SEX:M :1950 AGE: 73 LOC:[id number] ADM:Jun DX:DIVERTICULITIS PCP: Jatinder Cabrera /alexi/ EDUARDO PALOMARES MD STAFF PATHOLOGIST Signed: 07/06/2024 10:40 EDUARDO PALOMARES [facility] Jun 22, 2024 01:15 PM LR MICROBIOLOGY RE PORT: Reporting Lab: [facility] [CLIA# [id number]] [place] [address] Accession [UID]: [id number] [[id number]] Received: Jun 22, 2024@13:38 Collection sample: FLUID Collection date: Jun 22, 2024 13:15 Provider: ANGELA HOLDEN Comment on specimen: LLQ ABSCESS, RECEIVED IN ANAEROBIC TRANSPORT VIAL Test(s) ordered: GRAM STAIN.................... completed: Jun 22, 2024 15:03 CULTURE & SUSCEPTIBILITY...... completed: Jun 25, 2024 * BACTERIOLOGY FINAL REPORT => Jun 25, 2024 10:56 TECH CODE: [id number] GRAM STAIN: DIRECT SMEAR of specimen before [...] Bacteriology Report Performed By: [facility] [CLIA# [id number]] [place] [address] [facility] Jun 22, 2024 01:15 PM LR MICROBIOLOGY RE PORT: Reporting Lab: [facility] [CLIA# [id number]] [place] [address] Accession [UID]: [id number] [[id number]] Received: Jun 22, 2024@13:38 Collection sample: FLUID Collection date: Jun 22, 2024 13:15 Provider: ANGELA HOLDEN Comment on specimen: LLQ ABSCESS, RECEIVED IN ANAEROBIC TRANSPORT VIAL Test(s) ordered: ANAEROBIC CULTURE............. completed: Jun 28, 2024 * BACTERIOLOGY FINAL REPORT => Jun 28, 2024 10:08 TECH CODE: [id number] CULTURE RESULTS: HEAVY GROWTH MIXED ANAEROBES Comment: [...] Bacteriology Report Performed By: [facility] [CLIA# [id number]] [place] [address] [facility] Jun 21, 2024 06:12 PM LR MICROBIOLOGY RE PORT: Reporting Lab: [facility] [CLIA# [id number]] [place] [address] Accession [UID]: [id number] [[id number]] Received: Jun 21, 2024@18:12 Collection sample: BLOOD [...] Bacteriology Report Performed By: [facility] [CLIA# [id number]] [place] [address] [facility] Jun 21, 2024 06:11 PM LR MICROBIOLOGY RE PORT: Reporting Lab: [facility] [CLIA# [id number]] [place] [address] Accession [UID]: [id number] [[id number]] Received: Jun 21, 2024@18:11 Collection sample: BLOOD [...] Bacteriology Report Performed By: [facility] [CLIA# [id number]] [place] [address] [facility] Jun 08, 2024 11:00 AM LR MICROBIOLOGY RE PORT: Reporting Lab: [facility] [CLIA# [id number]] [place] [address] Accession [UID]: [id number] [[id number]] Received: Jun 08, 2024@11:00 Collection sample: URINE Collection date: Jun 08, 2024 11:00 Provider: MARYBETH POWELL Comment on specimen: urine Test(s) ordered: CULTURE & SUSCEPTIBILITY...... completed: Jun 09, 2024 * BACTERIOLOGY FINAL REPORT => Jun 09, 2024 19:12 TECH CODE: [id number] CULTURE RESULTS: ESCHERICHIA COLI - Quantity: >100,000 [...] Bacteriology Report Performed By: [facility] [CLIA# [id number]] [address] [place] [id number] [facility] Encounter Notes: All associated encounter notes This section contains the clinical notes associated to the Encounter. Date/Time Encounter Note(s) Provider Source Jul 04, 2024 11:45 AM ANESTHESIOLOGY NOT E: LOCAL TITLE: ANESTHESIA POSTOPERATIVE ASSESSMENT STANDARD TITLE: ANESTHESIOLOGY NOTE DATE OF NOTE: JUL 04, 2024@11:45 ENTRY DATE: JUL 04, 2024@11:45:35 AUTHOR: EDUARDO ALEJOIGNER: URGENCY: STATUS: COMPLETED POSTOPERATIVE ANESTHESIA ASSESSMENT 73 year old MALE who is POST OP DAY 1. ~~~~~~~~~~~~~~~~~~~~~~~~~~~~~~~~~ ~~~~~~~~~~~~~~~~~~~~~~~~~PATIENT LOCATION~~~ [facility] ~~~~~~~~~~~~~~~~~~~~~~~~~~~~~~~~~ ~~~~~~~~~~~~~~~~~~~~~~~~~~ANESTHE BRIAN TYPE~~~ *Regional/Neuraxial Block(s) performed: Transverses abdominis plane Yes - Site(s) are without redness, swelling, and hematoma Yes - Site(s) with intact, clean dressing *General Anesthesia/Monitored Anesthesia Care ~~~~~~~~~~~~~~~~~~~~~~~~~~~~~~~~~ ~~~~~~~~~~~~~~~~~~~~~~STATUS AND RESPONSE~~~ Yes Vital signs stable Yes Awake/alert Yes Oriented to patient baseline No Complications reported (describe below if yes) ~~~~~~~~~~~~~~~~~~~~~~~~~~~~~~~~~ ~~~~~~~~~~~~~~~~~~~~~~~~~~~~~~~IM PRESSION~~~ Does the patient require follow up? NO /alexi/ EDUARDO ALEJO CRNA CERTIFIED REGISTERED NURSE [employer] Signed: 07/04/2024 11:48 EDUARDO ALEJO [facility]
[2024-07-16] MEDS: MORPHINE 4 MG/ML INJ IVP (08:23)
[2024-07-16 08:43] LABS: C.Difficile Negative (Negative); CDIFFEPI 027 PRESUMPTIVE NEGATIVE (Negative)
[2024-07-16 09:03] LABS: Lactate Sepsis 2 Hour 1.6 mmol/L (0.5-1.9)
[2024-07-16] MEDS: PIPERACILLIN/TAZOBACTAM 3.375 GM in 0.9 % SODIUM CHLORIDE Mini-bag 100 ML IVPB (09:49)
[2024-07-16] MEDS: 0.9 % SODIUM CHLORIDE 1000 ml 1,000 ML 125 ML IV (09:50)
[2024-07-16] MEDS: VANCOMYCIN 1.75 GM/350 ML 1.75 GM/350 ML PIGGYBACK IVPB (10:33)
== END 2024-07-16 11:02 | disposition short-term general hospital (02) ==
LOC: ED 07:03
PROVIDERS: Emergency Provider Emergency Medicine
DX: N17.9 Acute kidney failure, unspecified (principal); Z93.2 Ileostomy status
CPT/HCPCS: 74176; 80048; 81001; 83605; 84484; 85025; 86140; 87040; 87493; 93005; 94761; 96365; 96366; 99285; J2270; J2543; J2765; J3372; J7030

== ENCOUNTER 2024-07-16 10:23 | Outpatient (CLI) | payer OTHER, SELFPAY | END 2024-07-16 10:24 | disposition home or self-care (01) | PROVIDERS: Visit Provider Emergency Medicine | DX: D72.829 Elevated white blood cell count, unspecified (principal); N17.9 Acute kidney failure, unspecified; R11.0 Nausea; Z93.2 Ileostomy status | CPT/HCPCS: A0425; A0434 ==

== ENCOUNTER 2024-08-01 06:46 | Emergency (ER) | payer OTHER, SELFPAY ==
[2024-08-01] VITALS (14 sets, daily range): BP systolic 115–151; BP diastolic 69–109; PULSE 50–74; RESP 20; TEMP 36.6; O2SAT 96–99; BMI 25.1
--- NOTE | 2024-08-01 07:14 | ED_ITS ---
HPI - General Adult General Chief complaint: Nausea/Vomiting <Marie Roach MD - Last Filed: 08/03/24 23:57> Stated complaint: Sick - Ostomy <Marie Roach MD - Last Filed: 08/03/24 23:57> Time Seen by Provider: 08/01/24 06:53 <Marie Roach MD - Last Filed: 08/03/24 23:57> Source: patient <Marie Roach MD - Last Filed: 08/03/24 23:57> Mode of arrival: ambulatory <Marie Roach MD - Last Filed: 08/03/24 23:57> Limitations: no limitations <Marie Roach MD - Last Filed: 08/03/24 23:57> History of Present Illness HPI narrative: 73-year-old male presents to the emergency department for evaluation of nausea for the past month. I do not have [facility] to the [facility] but he claims that he had a elective colectomy for diverticulitis. It sounds like it was a planned and scheduled procedure. He reports that since hospital discharge he has had significant nausea, it is difficult to eat and drink. He has lots of stool output. He is uncertain if he is taking any anti nausea medication. There is no vomiting. Said that he passed a little bit of small stool today from his rectum which concerned him because he did not think that that would be possible anymore. He was not aware that this is actually common. He is not running any fevers. He has no injury or trauma. As I am starting his exam, I a quickly notice that he still has jeannine in and there look like that they are growing over with dry skin attached to. I asked when these were supposed to come out, he does not know. When I ask if he is called to ask about his follow-up appointment and make all of these arrangements, he initially tells me that he has not gotten around to it but then he tells me that he would talk to someone just a few days ago, when I question what that was visit was about, he is unable to tell me. He is unable to list is medications so I look through with him in his bag. I notice that he filled a 56 count of oxycodone a little over a week ago and there only about 15 pills remaining. This seems like a lot to go through when he says that his ?old lady has been taking them?. He admits to smoking marijuana but denies any alcohol intake. When I ask if something was worse about his nausea this morning he says no that he just thought he should get it looked at since it has been going on for so long. It is clear that he is not following up with his surgical team or calling them to report progress and I find it very hard to believe that they would have intended for his jeannine to stay in this long. Past medical history is notable for coronary artery disease, hypertension, hyperlipidemia. 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 I reviewed his medications and it looks like he is taking furosemide, lisinopril, oxycodone, Lomotil which he states is for diarrhea that he has not been using as much recently. Isosorbide. List seems consistent with what he is reporting. Social history is notable for tobacco and marijuana use. ROS is notable for the abdominal symptoms only, otherwise denies times 12 systems but I would not consider him an accurate historian. <Marie Roach MD - Last Filed: 08/03/24 23:57> Related Data Home medications: Home Medications ?Medication ?Instructions ?Recorded ?Confirmed aspirin 81 mg tablet,delayed 81 mg PO DAILY 09/04/22 08/04/24 release (Adult Aspirin Regimen) nitroglycerin 0.4 mg sublingual 0.4 mg sublingual Q5M PRN 09/13/22 08/04/24 tablet Previous Rx's ?Medication ?Instructions ?Recorded atorvastatin 40 mg tablet 40 mg PO DAILY #90 tabs 09/13/22 dicyclomine 10 mg capsule 10 mg PO BID PRN abd pain #60 caps 09/13/22 empagliflozin 25 mg tablet 12.5 mg (1/2 x 25 mg) PO DAILY #45 09/13/22 tabs furosemide 20 mg tablet 20 mg PO DAILY #90 tabs 09/13/22 isosorbide mononitrate 30 mg 30 mg PO QDAY #90 tabs 09/13/22 tablet,extended release 24 hr lisinopril 10 0.5 tab PO DAILY #45 tabs 09/13/22 mg-hydrochlorothiazide 12.5 mg tablet ondansetron 4 mg disintegrating 4 mg PO Q6H PRN nausea and 09/13/22 tablet vomiting #60 tabs spironolactone 25 mg tablet 12.5 mg (1/2 x 25 mg) PO DAILY #45 09/13/22 tabs levofloxacin 250 mg tablet 250 mg PO DAILY #10 tabs 08/04/24 <Marie Roach MD - Last Filed: 08/03/24 23:57> Allergies/adverse reactions: Allergies Allergy/AdvReac Type Severity Reaction Status Date / Time terazosin Allergy Unknown Verified 08/03/24 21:42 <Marie Roach MD - Last Filed: 08/03/24 23:57> [facility] Medical History: Medical History Chronic constipation ?K59.09 - Other constipation (ICD-10) Pancreatic cyst ?K86.2 - Cyst of pancreas (ICD-10) Infarction of kidney ?N28.0 - Ischemia and infarction of kidney (ICD-10) Hiatal hernia ?K44.9 - Diaphragmatic hernia without obstruction or gangrene (ICD-10) Multiple lung nodules ?R91.8 - Other nonspecific abnormal finding of lung field (ICD-10) BPH (benign prostatic hyperplasia) ?N40.0 - Benign prostatic hyperplasia without lower urinary tract symptoms (ICD-10) Adenoma of left adrenal gland ?D35.02 - Benign neoplasm of left adrenal gland (ICD-10) History of kidney stones ?Z87.442 - Personal history of urinary calculi (ICD-10) CHF (congestive heart failure) ?I50.9 - Heart failure, unspecified (ICD-10) Edema ?R60.9 - Edema, unspecified (ICD-10) IBS (irritable bowel syndrome) ?K58.9 - Irritable bowel syndrome without diarrhea (ICD-10) CAD (coronary artery disease) ?I25.10 - Atherosclerotic heart disease of lummi coronary artery without angina pectoris (ICD-10) Obstructive sleep apnea syndrome ?G47.33 - Obstructive sleep apnea (adult) (pediatric) (ICD-10) Neck pain ?M54.2 - Cervicalgia (ICD-10) Impulse control disorder ?F63.9 - Impulse disorder, unspecified (ICD-10) Hypertension ?I10 - Essential (primary) hypertension (ICD-10) Hyperlipidemia ?E78.5 - Hyperlipidemia, unspecified (ICD-10) History of vitamin D deficiency ?Z86.39 - Personal history of other endocrine, nutritional and metabolic disease (ICD-10) History of marijuana use ?F12.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, unspecified, in remission (ICD-10) Diverticulitis of sigmoid colon ?K57.32 - Diverticulitis of large intestine without perforation or abscess without bleeding (ICD-10) Common iliac aneurysm ?I72.3 - Aneurysm of iliac artery (ICD-10) Chronic low back pain ?M54.50 - Low back pain, unspecified (ICD-10) ?G89.29 - Other chronic pain (ICD-10) Leukocytosis ?D72.829 - Elevated white blood cell count, unspecified (ICD-10) Anemia ?D64.9 - Anemia, unspecified (ICD-10) <Marie Roach MD - Last Filed: 08/03/24 23:57> Surgical History: Surgical History History of heart artery stent ?Z95.5 - Presence of coronary angioplasty implant and graft (ICD-10) History of spinal surgery ?Z98.890 - Other specified postprocedural states (ICD-10) History of hemorrhoids ?Z87.19 - Personal history of other diseases of the digestive system (ICD-10) History of carpal tunnel surgery ?Z98.890 - Other specified postprocedural states (ICD-10) <Marie Roach MD - Last Filed: 08/03/24 23:57> Social History: Social History What is your current living situation?: I presently have a place to live Problems where you live: no known problems Problems where you live details: None In the past 12 months, utilities in danger of being shut off: no In the past 12 mos, have been you worried that your food would run out before you had money to buy more?: never true In the past 12 mos, the food you bought just didn't last and you didn't have money to buy more?: never true Highest level of school completed/degree received: high school graduate Smoking Status: Current some day smoker What tobacco products do you use: cigarettes Smoking quit date/years: >15 years ago Do you use any of these nicotine containing products: None Second hand tobacco smoke exposure: No How often do you have a drink containing alcohol: monthly or less How many standard drinks containing alcohol do you have on a typical day: 1 or 2 How often do you have six or more drinks on one occasion: Never AUDIT-C Alcohol total score: 1 Non-prescribed substance use: marijuana (any form) How often does anyone, including family, friends and others, physically hurt you : never How often does anyone, including family, friends and others, insult or talk down to you: never How often does anyone, including family, friends and others, threaten you with harm: never How often does anyone, including family, friends and others, scream or curse at you: never service: Yes <Marie Roach MD - Last Filed: 08/03/24 23:57> Exam Const: Vital Signs, click to edit/add: Vital Signs - 24 hr 08/01/24 06:56 08/01/24 07:09 08/01/24 07:15 Temperature 97.8 F Pulse Rate 74 70 Pulse Rate [Right Pulse Oximeter] 71 Respiratory Rate 20 Blood Pressure Blood Pressure [Ri ght Upper Arm] 115/69 Pulse Oximetry 99 99 97 Oxygen Delivery Me thod Room Air 08/01/24 07:30 08/01/24 07:45 08/01/24 08:00 Temperature Pulse Rate 59 L 58 L 57 L Pulse Rate [Right Pulse Oximeter] Respiratory Rate Blood Pressure Blood Pressure [Ri ght Upper Arm] Pulse Oximetry 96 96 96 Oxygen Delivery Me thod 08/01/24 08:13 08/01/24 08:15 Temperature Pulse Rate 51 L 59 L Pulse Rate [Right Pulse Oximeter] Respiratory Rate Blood Pressure 121/74 Blood Pressure [Ri ght Upper Arm] Pulse Oximetry 98 98 Oxygen Delivery Me thod <Marie Roach MD - Last Filed: 08/03/24 23:57> Vital Signs, click to edit/add: Vital Signs - 24 hr 08/01/24 06:56 08/01/24 07:09 08/01/24 07:15 Temperature 97.8 F Pulse Rate 74 70 Pulse Rate [Right Pulse Oximeter] 71 Respiratory Rate 20 Blood Pressure Blood Pressure [Ri ght Upper Arm] 115/69 Pulse Oximetry 99 99 97 Oxygen Delivery Me thod Room Air 08/01/24 07:30 08/01/24 07:45 08/01/24 08:00 Temperature Pulse Rate 59 L 58 L 57 L Pulse Rate [Right Pulse Oximeter] Respiratory Rate Blood Pressure Blood Pressure [Ri ght Upper Arm] Pulse Oximetry 96 96 96 Oxygen Delivery Me thod 08/01/24 08:13 08/01/24 08:15 Temperature Pulse Rate 51 L 59 L Pulse Rate [Right Pulse Oximeter] Respiratory Rate Blood Pressure 121/74 Blood Pressure [Ri ght Upper Arm] Pulse Oximetry 98 98 Oxygen Delivery Me thod <Flynn Rahman MD - Last Filed: 08/01/24 09:39> Vital Signs, click to edit/add: Vital Signs - 24 hr 08/01/24 06:56 08/01/24 07:09 08/01/24 07:15 Temperature 97.8 F Pulse Rate 74 70 Pulse Rate [Right Pulse Oximeter] 71 Respiratory Rate 20 Blood Pressure Blood Pressure [Ri ght Upper Arm] 115/69 Pulse Oximetry 99 99 97 Oxygen Delivery Me thod Room Air 08/01/24 07:30 08/01/24 07:45 08/01/24 08:00 Temperature Pulse Rate 59 L 58 L 57 L Pulse Rate [Right Pulse Oximeter] Respiratory Rate Blood Pressure Blood Pressure [Ri ght Upper Arm] Pulse Oximetry 96 96 96 Oxygen Delivery Me thod 08/01/24 08:13 08/01/24 08:15 Temperature Pulse Rate 51 L 59 L Pulse Rate [Right Pulse Oximeter] Respiratory Rate Blood Pressure 121/74 Blood Pressure [Ri ght Upper Arm] Pulse Oximetry 98 98 Oxygen Delivery Me thod <Brian Clark DO - Last Filed: 08/13/24 08:02> Documenting provider has reviewed patient's vital signs: yes <Marie Roach MD - Last Filed: 08/03/24 23:57> Other: Smells of marijuana but no signs of distress. Does not appear pale or diaphoretic. <MD Kasi Martines Last Filed: 08/03/24 23:57> HENMT: Common normals: normocephalic, head/scalp atraumatic, moist oral mucous membranes and oropharynx normal <MD Kasi Martines Last Filed: 08/03/24 23:57> Head and scalp: normocephalic and atraumatic <Marie Roach MD - Last Filed: 08/03/24 23:57> Eye: Common normals: conjunctivae normal <MD Kasi Martines Last Filed: 08/03/24 23:57> General eye: normal appearance of both eyes <MD Kasi Martines Last Filed: 08/03/24 23:57> Conjunctiva: conjunctiva(e) normal <MD Kasi Martines Last Filed: 08/03/24 23:57> Neck & C-Spine: Common normals: no lymphadenopathy <MD Kasi Martines Last Filed: 08/03/24 23:57> General: normal visual inspection <MD Kasi Martines Last Filed: 08/03/24 23:57> Resp: Common normals: normal respiratory effort, no use of accessory muscles and clear to auscultation bilaterally <MD Kasi Martines Last Filed: 1 10/04/23 23:57> Effort & inspection: able to speak in complete sentences <MD Kasi Martines Last Filed: 08/03/24 23:57> Auscultation: clear to auscultation bilaterally <MD Kasi Martines Last Filed: 08/03/24 23:57> Cardio: Common normals: regular rate, regular rhythm, S1 normal heart sound, S2 normal heart sound and no murmurs <MD Kasi Martines Last Filed: 08/03/24 23:57> Rate: regular rate <MD Kasi Martines Last Filed: 08/03/24 23:57> Rhythm: regular rhythm <MD Kasi Martines Last Filed: 08/03/24 23:57> Heart sounds: S1 normal and S2 normal <Marie Roach MD - Last Filed: 08/03/24 23:57> GI: Other: Bowel sounds are present in all 4 quadrants. There is a large midline laparotomy scar with pink granulating skin, lots of dry skin surrounding it and the jeannine are still present which would be really unusual at over 4 weeks. Thank you surrounding but not obviously warm and no drainage of purulent material. Ostomy site with minimal surrounding pannus but no large areas of redness. Soft substance stool noted in ostomy bag with no blood. <Marie Roach MD - Last Filed: 08/03/24 23:57> Back & Pelvis: Common normals: thoracic and lumbar spine normal to inspection <Marie Roach MD - Last Filed: 08/03/24 23:57> Extremity: Common normals: normal to inspection, normal capillary refill and no pedal edema <Marie Roach MD - Last Filed: 08/03/24 23:57> Neuro: Other: Normal speech but significant tremor. Does move all 4 extremities easily and symmetrically. I did observe him walking in with normal gait. <Marie Roach MD - Last Filed: 08/03/24 23:57> Psych: Appearance: unkempt <Marie Roach MD - Last Filed: 08/03/24 23:57> Other: Slightly withdrawn, makes frequent excuses for why he has not called or followed up. It is clear that he has not prioritized managing this until today. No obvious psychosis or suicidality. <Marie Roach MD - Last Filed: 08/03/24 23:57> Skin: Common normals: no rashes or lesions noted <Marie Roach MD - Last Filed: 08/03/24 23:57> Narrative: Other than recent surgical incision, no areas of bruising, open skin or other signs of infection. <Marie Roach MD - Last Filed: 08/03/24 23:57> General skin exam: no rashes or lesions noted <Marie Roach MD - Last Filed: 08/03/24 23:57> Course Course ED Course: I attempt to look for outside records and the most recent we have are from early . 73-year-old male with nausea since colectomy and colostomy placement 4 weeks ago. Still has the jeannine and I have significant concerns that he is not managing his appointments, medications and nutrition appropriately. Will start by placing an IV, administering 4 mg of Zofran. It does not look as though he has a prescription for anti nausea medication. Will give a 500 mL bolus of normal saline, typical intra-abdominal labs while we attempt to locate records. Low threshold for performing a CT scan. He patient is going to call his ostomy Clinic to find out about suture removal and upcoming appointments for me. Nursing team is going to try to call to get surgical notes and any record [facility] for the last couple of weeks. Anticipate hand over of care to incoming day shift team. <Marie Roach MD - Last Filed: 08/03/24 23:57> Vital Signs Vital signs: Initial Vital Signs Temperature 97.8 F 08/01/24 06:56 Temperature Source Temporal Artery Scan 08/01/24 06:56 Pulse Rate 71 08/01/24 06:56 Respiratory Rate 20 08/01/24 06:56 Blood Pressure 115/69 08/01/24 06:56 Blood Pressure Mean 84 08/01/24 06:56 Blood Pressure Position Sitting 08/01/24 06:56 Pulse Oximetry 99 08/01/24 06:56 Oxygen Delivery Method Room Air 08/01/24 06:56 Vital Signs Temperature 97.8 F 08/01/24 06:56 Pulse Rate 71 08/01/24 06:56 Respiratory Rate 20 08/01/24 06:56 Blood Pressure 115/69 08/01/24 06:56 Pulse Oximetry 99 08/01/24 06:56 Oxygen Delivery Method Room Air 08/01/24 06:56 Temperature 97.8 F 08/01/24 06:56 Pulse Rate 55 L 08/01/24 09:30 Respiratory Rate 20 08/01/24 06:56 Blood Pressure 151/109 H 08/01/24 09:16 Pulse Oximetry 99 08/01/24 09:30 Oxygen Delivery Method Room Air 08/01/24 06:56 <Marie Roach MD - Last Filed: 08/03/24 23:57> Initial Vital Signs Temperature 97.8 F 08/01/24 06:56 Temperature Source Temporal Artery Scan 08/01/24 06:56 Pulse Rate 71 08/01/24 06:56 Respiratory Rate 20 08/01/24 06:56 Blood Pressure 115/69 08/01/24 06:56 Blood Pressure Mean 84 08/01/24 06:56 Blood Pressure Position Sitting 08/01/24 06:56 Pulse Oximetry 99 08/01/24 06:56 Oxygen Delivery Method Room Air 08/01/24 06:56 Vital Signs Temperature 97.8 F 08/01/24 06:56 Pulse Rate 71 08/01/24 06:56 Respiratory Rate 20 08/01/24 06:56 Blood Pressure 115/69 08/01/24 06:56 Pulse Oximetry 99 08/01/24 06:56 Oxygen Delivery Method Room Air 08/01/24 06:56 Temperature 97.8 F 08/01/24 06:56 Pulse Rate 55 L 08/01/24 09:30 Respiratory Rate 20 08/01/24 06:56 Blood Pressure 151/109 H 08/01/24 09:16 Pulse Oximetry 99 08/01/24 09:30 Oxygen Delivery Method Room Air 08/01/24 06:56 <Flynn Rahman MD - Last Filed: 08/01/24 09:39> Initial Vital Signs Temperature 97.8 F 08/01/24 06:56 Temperature Source Temporal Artery Scan 08/01/24 06:56 Pulse Rate 71 08/01/24 06:56 Respiratory Rate 20 08/01/24 06:56 Blood Pressure 115/69 08/01/24 06:56 Blood Pressure Mean 84 08/01/24 06:56 Blood Pressure Position Sitting 08/01/24 06:56 Pulse Oximetry 99 08/01/24 06:56 Oxygen Delivery Method Room Air 08/01/24 06:56 Vital Signs Temperature 97.8 F 08/01/24 06:56 Pulse Rate 71 08/01/24 06:56 Respiratory Rate 20 08/01/24 06:56 Blood Pressure 115/69 08/01/24 06:56 Pulse Oximetry 99 08/01/24 06:56 Oxygen Delivery Method Room Air 08/01/24 06:56 Temperature 97.8 F 08/01/24 06:56 Pulse Rate 55 L 08/01/24 09:30 Respiratory Rate 20 08/01/24 06:56 Blood Pressure 151/109 H 08/01/24 09:16 Pulse Oximetry 99 08/01/24 09:30 Oxygen Delivery Method Room Air 08/01/24 06:56 <Brian Clark DO - Last Filed: 08/13/24 08:02> Medications Administered Medications: Discontinued Medications Generic Name Dose Route Start Last Admin Trade Name Freq PRN Reason Stop Dose Admin Sodium Chloride 500 mls @ 500 mls/hr 08/01/24 07:12 08/01/24 08:08 0.9 % Sodium Chloride 500 Ml IV 08/01/24 08:11 Infused .Q1H ONE Infusion Sodium Chloride 500 mls @ 500 mls/hr 08/01/24 08:07 08/01/24 09:46 0.9 % Sodium Chloride 500 Ml IV 08/01/24 09:06 Infused .Q1H ONE Infusion Ondansetron HCl 4 mg 08/01/24 07:12 08/01/24 07:20 Ondansetron 2 Mg/Ml Inj IVP 08/01/24 07:13 4 mg ONCE ONE Administration Ondansetron HCl 4 mg 08/01/24 09:04 08/01/24 09:12 Ondansetron 2 Mg/Ml Inj IVP 08/01/24 09:05 4 mg ONCE ONE Administration <Marie Roach MD - Last Filed: 08/03/24 23:57> Discontinued Medications Generic Name Dose Route Start Last Admin Trade Name Freq PRN Reason Stop Dose Admin Sodium Chloride 500 mls @ 500 mls/hr 08/01/24 07:12 08/01/24 08:08 0.9 % Sodium Chloride 500 Ml IV 08/01/24 08:11 Infused .Q1H ONE Infusion Sodium Chloride 500 mls @ 500 mls/hr 08/01/24 08:07 08/01/24 09:46 0.9 % Sodium Chloride 500 Ml IV 08/01/24 09:06 Infused .Q1H ONE Infusion Ondansetron HCl 4 mg 08/01/24 07:12 08/01/24 07:20 Ondansetron 2 Mg/Ml Inj IVP 08/01/24 07:13 4 mg ONCE ONE Administration Ondansetron HCl 4 mg 08/01/24 09:04 08/01/24 09:12 Ondansetron 2 Mg/Ml Inj IVP 08/01/24 09:05 4 mg ONCE ONE Administration <Flynn Rahman MD - Last Filed: 08/01/24 09:39> Discontinued Medications Generic Name Dose Route Start Last Admin Trade Name Sunil PRN Reason Stop Dose Admin Sodium Chloride 500 mls @ 500 mls/hr 08/01/24 07:12 08/01/24 08:08 0.9 % Sodium Chloride 500 Ml IV 08/01/24 08:11 Infused .Q1H ONE Infusion Sodium Chloride 500 mls @ 500 mls/hr 08/01/24 08:07 08/01/24 09:46 0.9 % Sodium Chloride 500 Ml IV 08/01/24 09:06 Infused .Q1H ONE Infusion Ondansetron HCl 4 mg 08/01/24 07:12 08/01/24 07:20 Ondansetron 2 Mg/Ml Inj IVP 08/01/24 07:13 4 mg ONCE ONE Administration Ondansetron HCl 4 mg 08/01/24 09:04 08/01/24 09:12 Ondansetron 2 Mg/Ml Inj IVP 08/01/24 09:05 4 mg ONCE ONE Administration <Brian Clark DO - Last Filed: 08/13/24 08:02> Medical Decision Making MDM Narrative Medical decision making narrative: Care for this patient was transferred to [place] at the end of Dr. Roach's shift. Lab results were pending at that time. His sodium returns a bit low at 128. At the patient did receive a total of 1 L of normal saline intravenously. His lactate is returning at 2.8. He is not showing any signs of sepsis. He did have a bowel surgery and has an ostomy that is functioning properly. His white count returns a bit elevated at around 14,000. I did examine the patient and his surgical wound appears to be healing properly without sign of tenderness, drainage, or infection. He has jeannine in place which should be removed. I discussed options with the patient whose main complaint is nausea. He feels that he [facility] and states that he has been attempting to make such arrangements. The patient was provided a prescription for Zofran. <Flynn Rahman MD - Last Filed: 08/01/24 09:39> On 08/03/2020 for his urine culture returned showing 80,000 colony count for Pseudomonas. Nursing staff call the patient needs not having any improvement in his nausea. Based on the note I read patient does not seem to be adequately caring for his health show a will be on the safe side and treat him with Cipro. <Brian Clark DO - Last Filed: 08/13/24 08:02> Lab Data Lab results reviewed: Yes I reviewed the patient's lab results <Marie Roach MD - Last Filed: 08/03/24 23:57> Labs: Lab Results 08/01/24 08/01/24 Range/Units 07:26 08:13 WBC 14.53 H (4.50-11.00) K/uL RBC 4.57 (4.30-5.90) m/uL Hgb 14.4 (13.5-17.5) gm/dL Hct 41.0 (37.0-53.0) % MCV 90 (80-100) fL MCH 32 (26-34) pg MCHC 35 (32-36) gm/dL RDW Coeff of [place] 14.3 (11.5-15.5) % Plt Count 266 (140-440) K/uL Neut % (Auto) 83.6 H (42.0-72.0) % Lymph % (Auto) 8.9 L (20-44) % [place] % (Auto) 6.2 (0.0-11.0) % Eos % (Auto) 0.4 (0.0-7.0) % Baso % (Auto) 0.3 (0.0-3.0) % Neut # (Auto) 12.10 H (1.7-7.0) K/uL Lymph # (Auto) 1.30 (0.90-2.90) K/uL [place] # (Auto) 0.90 (0.00-0.90) K/UL Eos # (Auto) 0.10 (0.00-0.50) K/uL Baso # (Auto) 0.00 (0.00-0.30) K/uL Abs Immat Gran (auto) 0.10 (0.00-0.30) K/uL Imm/Tot Granulo (auto) 0.6 % Sodium 128 L (135-149) mmol/L Potassium 4.3 (3.6-5.1) mmol/L Chloride 101 (96-114) mmol/L Carbon Dioxide 15 L (20-32) mmol/L Anion Gap 12 (7-15) mEq/L BUN 27 (7-30) mg/dL Creatinine 0.8 (0.5-1.5) mg/dL Estimated Creat Clear 71.12 Estimated GFR 94 ml/min Glucose 118 H (60-115) mg/dL Lactate 2.8 H (0.5-1.9) mmol/L Calcium 9.7 (8.4-10.6) mg/dL Total Bilirubin 0.4 (0.1-1.5) mg/dL AST 30 (12-35) U/L ALT 38 (4-50) U/L Alkaline Phosphatase 90 (40-150) U/L C-Reactive Protein 0.9 (0.5-1.0) mg/dL Total Protein 7.2 (6.0-8.3) g/dL Albumin 4.2 (3.3-5.0) g/dL Lipase 95 (23-300) U/L Urine Color Yellow (Yellow) Urine Appearance Slightly Cloudy A (Clear) Urine pH 5.5 (5.0-8.5) Ur Specific [place] 1.015 (1.000-1.030) Urine Protein Negative (Negative) Urine Glucose (UA) 2+ A (Negative) Urine Ketones Negative (Negative) Urine Blood Negative (Negative) Urine Nitrite Negative (Negative) Urine Bilirubin Negative (Negative) Urine Urobilinogen 0.2 (0.2-1.0) Ur Leukocyte Esterase Negative (Negative) Urine RBC 0-2 (0-2) Urine WBC 0-2 (0-5) Ur Squamous Epith Cells Moderate A (None-Few) Urine Bacteria Few A (None) Hyaline Casts Few (None-Few) Fine Granular Casts Few A (None) Urine Yeast Few A (None) Urine Opiates Screen Negative (Negative) Ur Oxycodone Screen POSITIVE A (Negative) Urine Methadone Screen Negative (Negative) Ur Barbiturates Screen Negative (Negative) U Tricyclic Antidepress Negative (Negative) Ur Phencyclidine Scrn Negative (Negative) Ur Amphetamines Screen Negative (Negative) U Methamphetamines Scrn Negative (Negative) U Benzodiazepines Scrn Negative (Negative) Urine Cocaine Screen Negative (Negative) U Marijuana (THC) Screen POSITIVE A (Negative) Ur Drug Screen Comment See Note <Marie Roach MD - Last Filed: 08/03/24 23:57> Lab Results 08/01/24 08/01/24 Range/Units 07:26 08:13 WBC 14.53 H (4.50-11.00) K/uL RBC 4.57 (4.30-5.90) m/uL Hgb 14.4 (13.5-17.5) gm/dL Hct 41.0 (37.0-53.0) % MCV 90 (80-100) fL MCH 32 (26-34) pg MCHC 35 (32-36) gm/dL RDW Coeff of [place] 14.3 (11.5-15.5) % Plt Count 266 (140-440) K/uL Neut % (Auto) 83.6 H (42.0-72.0) % Lymph % (Auto) 8.9 L (20-44) % [place] % (Auto) 6.2 (0.0-11.0) % Eos % (Auto) 0.4 (0.0-7.0) % Baso % (Auto) 0.3 (0.0-3.0) % Neut # (Auto) 12.10 H (1.7-7.0) K/uL Lymph # (Auto) 1.30 (0.90-2.90) K/uL [place] # (Auto) 0.90 (0.00-0.90) K/UL Eos # (Auto) 0.10 (0.00-0.50) K/uL Baso # (Auto) 0.00 (0.00-0.30) K/uL Abs Immat Gran (auto) 0.10 (0.00-0.30) K/uL Imm/Tot Granulo (auto) 0.6 % Sodium 128 L (135-149) mmol/L Potassium 4.3 (3.6-5.1) mmol/L Chloride 101 (96-114) mmol/L Carbon Dioxide 15 L (20-32) mmol/L Anion Gap 12 (7-15) mEq/L BUN 27 (7-30) mg/dL Creatinine 0.8 (0.5-1.5) mg/dL Estimated Creat Clear 71.12 Estimated GFR 94 ml/min Glucose 118 H (60-115) mg/dL Lactate 2.8 H (0.5-1.9) mmol/L Calcium 9.7 (8.4-10.6) mg/dL Total Bilirubin 0.4 (0.1-1.5) mg/dL AST 30 (12-35) U/L ALT 38 (4-50) U/L Alkaline Phosphatase 90 (40-150) U/L C-Reactive Protein 0.9 (0.5-1.0) mg/dL Total Protein 7.2 (6.0-8.3) g/dL Albumin 4.2 (3.3-5.0) g/dL Lipase 95 (23-300) U/L Urine Color Yellow (Yellow) Urine Appearance Slightly Cloudy A (Clear) Urine pH 5.5 (5.0-8.5) Ur Specific [place] 1.015 (1.000-1.030) Urine Protein Negative (Negative) Urine Glucose (UA) 2+ A (Negative) Urine Ketones Negative (Negative) Urine Blood Negative (Negative) Urine Nitrite Negative (Negative) Urine Bilirubin Negative (Negative) Urine Urobilinogen 0.2 (0.2-1.0) Ur Leukocyte Esterase Negative (Negative) Urine RBC 0-2 (0-2) Urine WBC 0-2 (0-5) Ur Squamous Epith Cells Moderate A (None-Few) Urine Bacteria Few A (None) Hyaline Casts Few (None-Few) Fine Granular Casts Few A (None) Urine Yeast Few A (None) Urine Opiates Screen Negative (Negative) Ur Oxycodone Screen POSITIVE A (Negative) Urine Methadone Screen Negative (Negative) Ur Barbiturates Screen Negative (Negative) U Tricyclic Antidepress Negative (Negative) Ur Phencyclidine Scrn Negative (Negative) Ur Amphetamines Screen Negative (Negative) U Methamphetamines Scrn Negative (Negative) U Benzodiazepines Scrn Negative (Negative) Urine Cocaine Screen Negative (Negative) U Marijuana (THC) Screen POSITIVE A (Negative) Ur Drug Screen Comment See Note <Flynn Rahman MD - Last Filed: 08/01/24 09:39> Lab Results 08/01/24 08/01/24 Range/Units 07:26 08:13 WBC 14.53 H (4.50-11.00) K/uL RBC 4.57 (4.30-5.90) m/uL Hgb 14.4 (13.5-17.5) gm/dL Hct 41.0 (37.0-53.0) % MCV 90 (80-100) fL MCH 32 (26-34) pg MCHC 35 (32-36) gm/dL RDW Coeff of [place] 14.3 (11.5-15.5) % Plt Count 266 (140-440) K/uL Neut % (Auto) 83.6 H (42.0-72.0) % Lymph % (Auto) 8.9 L (20-44) % [place] % (Auto) 6.2 (0.0-11.0) % Eos % (Auto) 0.4 (0.0-7.0) % Baso % (Auto) 0.3 (0.0-3.0) % Neut # (Auto) 12.10 H (1.7-7.0) K/uL Lymph # (Auto) 1.30 (0.90-2.90) K/uL [place] # (Auto) 0.90 (0.00-0.90) K/UL Eos # (Auto) 0.10 (0.00-0.50) K/uL Baso # (Auto) 0.00 (0.00-0.30) K/uL Abs Immat Gran (auto) 0.10 (0.00-0.30) K/uL Imm/Tot Granulo (auto) 0.6 % Sodium 128 L (135-149) mmol/L Potassium 4.3 (3.6-5.1) mmol/L Chloride 101 (96-114) mmol/L Carbon Dioxide 15 L (20-32) mmol/L Anion Gap 12 (7-15) mEq/L BUN 27 (7-30) mg/dL Creatinine 0.8 (0.5-1.5) mg/dL Estimated Creat Clear 71.12 Estimated GFR 94 ml/min Glucose 118 H (60-115) mg/dL Lactate 2.8 H (0.5-1.9) mmol/L Calcium 9.7 (8.4-10.6) mg/dL Total Bilirubin 0.4 (0.1-1.5) mg/dL AST 30 (12-35) U/L ALT 38 (4-50) U/L Alkaline Phosphatase 90 (40-150) U/L C-Reactive Protein 0.9 (0.5-1.0) mg/dL Total Protein 7.2 (6.0-8.3) g/dL Albumin 4.2 (3.3-5.0) g/dL Lipase 95 (23-300) U/L Urine Color Yellow (Yellow) Urine Appearance Slightly Cloudy A (Clear) Urine pH 5.5 (5.0-8.5) Ur Specific [place] 1.015 (1.000-1.030) Urine Protein Negative (Negative) Urine Glucose (UA) 2+ A (Negative) Urine Ketones Negative (Negative) Urine Blood Negative (Negative) Urine Nitrite Negative (Negative) Urine Bilirubin Negative (Negative) Urine Urobilinogen 0.2 (0.2-1.0) Ur Leukocyte Esterase Negative (Negative) Urine RBC 0-2 (0-2) Urine WBC 0-2 (0-5) Ur Squamous Epith Cells Moderate A (None-Few) Urine Bacteria Few A (None) Hyaline Casts Few (None-Few) Fine Granular Casts Few A (None) Urine Yeast Few A (None) Urine Opiates Screen Negative (Negative) Ur Oxycodone Screen POSITIVE A (Negative) Urine Methadone Screen Negative (Negative) Ur Barbiturates Screen Negative (Negative) U Tricyclic Antidepress Negative (Negative) Ur Phencyclidine Scrn Negative (Negative) Ur Amphetamines Screen Negative (Negative) U Methamphetamines Scrn Negative (Negative) U Benzodiazepines Scrn Negative (Negative) Urine Cocaine Screen Negative (Negative) U Marijuana (THC) Screen POSITIVE A (Negative) Ur Drug Screen Comment See Note <Brian Clark DO - Last Filed: 08/13/24 08:02> Discharge Plan Discharge Clinical Impression: Nausea <Marie Roach MD - Last Filed: 08/03/24 23:57> Patient Disposition: Home, Self-Care <Marie Roach MD - Last Filed: 08/03/24 23:57> Condition: Stable <Marie Roach MD - Last Filed: 08/03/24 23:57> Additional Instructions: Follow-up with [facility] for ongoing management. Take medication as prescribed. Return if worsening. <Marie Roach MD - Last Filed: 08/03/24 23:57> Prescriptions: No Action nitroglycerin 0.4 mg tablet, sublingual 0.4 mg sublingual Q5M PRN isosorbide mononitrate 30 mg tablet extended release 24 hr 30 mg PO QDAY Qty: 90 3RF atorvastatin 40 mg tablet 40 mg PO DAILY Qty: 90 3RF dicyclomine 10 mg capsule 10 mg PO BID PRN (Reason: abd pain) Qty: 60 11RF empagliflozin 25 mg tablet 12.5 mg PO DAILY Qty: 45 3RF furosemide 20 mg tablet 20 mg PO DAILY Qty: 90 3RF lisinopril-hydrochlorothiazide 10-12.5 mg tablet 0.5 tab PO DAILY Qty: 45 3RF ondansetron 4 mg tablet,disintegrating 4 mg PO Q6H PRN (Reason: nausea and vomiting) Qty: 60 5RF spironolactone 25 mg tablet 12.5 mg PO DAILY Qty: 45 3RF aspirin [Adult Aspirin Regimen] 81 mg tablet,delayed release (DR/EC) 81 mg PO DAILY levofloxacin 250 mg tablet 250 mg PO DAILY Qty: 10 0RF <Marie Roach MD - Last Filed: 08/03/24 23:57> Follow Up/Referrals: Provider,Not a Local [Primary Care Provider] - <Marie Roach MD - Last Filed: 08/03/24 23:57> [facility] <Marie Roach MD - Last Filed: 08/03/24 23:57>
[2024-08-01] MEDS: ONDANSETRON 2 MG/ML inj 4 MG IVP ×2 (07:20→09:12)
--- OUTSIDE RECORDS SUMMARY | 2024-08-01 07:25 | XMS_ITS | Continuity of Care Document ---
Author Name [facility] Organization [facility] Care Team Providers Care Employment Director Name Role Phone [facility] Unavailable Unavailable Problems Combined list of problems [...] 11.24.2021 LDCT completed. [address] [facility] Abdominal aortic aneurysm Active 05/05/20 20 Condition May 08, 2020 Entered By: MICHELL WHEELER Comment: 05.05.[address]: O.9cm thrombosed saccular aneurysm to distal abdominal aorta. [facility] Pancreatic cyst Active 05/05/20 20 Condition Jul 24, 2021 Entered By: MICHELL WHEELER Comment: 05.05.[address]: 0.7cm low-attenuatio n lesion tail of pancrease. Annual surveillance x 5 yr suggested for lesions < 1.5cm. 07.24.[address] [facility] Diverticular disease Active 02/14/20 19 Condition 05/23/2020 Nov 13, 2020 Entered By: MICHELL WHEELER Comment: By 02.13.[address] 03.14.2020 [facility](ED [place], [place]): Pt. Declined Admission. 03.14.2020 CT with Mild Sigmoid diverticulitis . 04.23.2020 ED([facility]): Declined admission. [facility] Steatosis of liver Active 02/14/20 19 Condition Feb 16, 2019 Entered By: MICHELL WHEELER Comment: By 02.13.[address] [facility] Decreased vitamin D Active 02/25/20 17 Condition Jul 13, 2021 Entered By: MICHELL WHEELER Comment: 02.24.2017 Vitamin D 26ng/mL. [facility] Colonoscopy normal Active 05/28/20 14 Condition Jul 07, 2020 Entered By: MICHELL WHEELER Comment: 05.28.2014 Procedure: No biopsies. 07.07.2020 Procedure: No Biopsoes . No additional CRC surveillance recommended by product marketing consultant. [facility] Impaired Fasting Glucose (SCT [id number]) Active 02/27/20 14 Condition Jul 13, 2021 Entered By: MICHELL WHEELER Comment: 02.26.2014 A1[address]8%. [facility] Carpal tunnel syndrome Active 11/29/19 12 Condition Jul 13, 2021 Entered By: MICHELL WHEELER Comment: 11.29.2011 Abnormal LUE EMG (C-7 & Median N.). 01.15.2016 Abnormal RUE EMG(Median N.). [facility] Adrenal mass Active Condition Jul 24, 2021 Entered By: MICHELL WHEELER Comment: 03.14.[address]: Stable 1.4cm L Adrenal Nodule. 05.05.[address]: 1.5cm L Adrenal Nodule. 07.24.[address] [facility] Aneurysm of common iliac artery Active Condition Jul 16, 2021 Entered By: MICHELL WHEELER Comment: 03.21.2017 U/S: L 2.0. 02.13.2019 CT: 2.0cm(R/L). 05.05.2020 CT: 1.9cm(R/L). 07.16.2021 R GAIL 1.9cm. L GAIL 2.0cm. [facility] Cann[facility] misuse [facility] Cervicalgia Active Condition Apr 07, 2017 Entered By: MICHELL WHEELER Comment: 03.22.2017 C-S MRI: Advanced Cervical Spondylosis; Multi-level High Grade Foraminal Narrowing. [facility]ITC Primary Care Active Condition 2022 Entered By: MICHELL WHEELER Comment: Community Care Primary: Dr. Cathi Simeon, [facility], [place] [address]. [facility] Coronary artery disease Active Condition Feb 24, 2017 Entered By: MICHELL WHEELER Comment: 03.23.2016 PCI: RCA stent(s). [address] [facility] Ex-tobacco user Active [facility] Hiatal hernia Active [facility] History of surgery Active Condition D 2017 Entered By: MICHELL WHEELER Comment: 09.02.2014 Left CTR. 09.03.[address] [facility] Hyperlipidemia Active Condition [facility] Hypertension Active Condition [facility] Impulse control disorder Active Condition [facility] Infarction of kidney Active Condition Feb 16, 2019 Entered By: MICHELL WHEELER Comment: By 02.13.[address]: Large old infarction interpolar region and upper pole of R kidney. [facility] Pain of both knees Active Condition [facility] Shoulder Pain (SCT [id number]) Active Condition [facility] Sleep apnea Active Condition Feb 24, 2017 Entered By: MICHELL WHEELER Comment: CPAP has been prescribed - not routinely using device. [facility] Trigger finger Active Condition [facility] Wrist pain Active Condition [facility] Diagnosis: ICD-10-CM K57.90 Dvrtclos of intest, part unsp, w/o perf or abscess w/o bleed Active Diagnosis [facility] Diagnosis: ICD-10-CM K57.20 Dvtrcli of lg int w perforation and abscess w/o bleeding Active Diagnosis [facility] Diagnosis: ICD-10-CM Z71.81 Spiritual or samaritan counseling Active Diagnosis [facility] Diagnosis: ICD-10-CM Z79.2 dye blender (current) use of antibiotics Active Diagnosis [facility] Admit Reason: C-DIFF, HYPOTENSION Active Diagnosis [facility] Diagnosis: ICD-10-CM R00.1 Bradycardia, unspecified Active Diagnosis [facility] Diagnosis: ICD-10-CM I50.22 Chronic systolic (congestive) heart failure Active Diagnosis [facility] Diagnosis: ICD-10-CM Z74.09 Other reduced mobility Active Diagnosis [facility] Diagnosis: ICD-10-CM Z73.6 Limitation of activities due to disability Active Diagnosis [facility] Diagnosis: ICD-10-CM Z51.89 Encounter for other specified aftercare Active Diagnosis [facility] Diagnosis: ICD-10-CM Z01.818 Encounter for other preprocedural examination Active Diagnosis [facility] Admit Reason: DIVERTICULITIS Active Diagnosis [facility] Admit Reason: COMPLICATED DIVERTICULITIS Active Diagnosis [facility] Diagnosis: ICD-10-CM Z71.89 Other specified counseling Active Diagnosis [facility] Diagnosis: ICD-10-CM Z13.6 Encounter for screening for cardiovascular disorders Active Diagnosis [facility] Diagnosis: ICD-10-CM N32.81 Overactive bladder Active Diagnosis [facility] Diagnosis: ICD-10-CM I10 Essential (primary) hypertension Active Diagnosis [facility] Diagnosis: ICD-10-CM R03.0 Elevated blood-pressure reading, w/o diagnosis of htn Active Diagnosis [facility] Diagnosis: ICD-10-CM R94.31 Abnormal electrocardiogram [ECG] [EKG] Active Diagnosis [facility] Diagnosis: ICD-10-CM I44.1 Atrioventricular block, second degree Active Diagnosis [facility] Admit Reason: DIVERTICULITIS ABSC W/FIST Active Diagnosis [facility] Diagnosis: ICD-10-CM I25.10 Athscl heart disease of [place] coronary artery w/o ang pctrs Active Diagnosis [facility] Diagnosis: ICD-10-CM H90.3 Sensorineural hearing loss, bilateral Active Diagnosis [facility] Diagnosis: ICD-10-CM Z01.118 Encntr for exam of ears and hearing w oth abnormal findings Active Diagnosis [facility] Diagnosis: ICD-10-CM K59.00 Constipation, unspecified Active Diagnosis [facility] Diagnosis: ICD-10-CM K63.89 Other specified diseases of intestine Active Diagnosis [facility] Diagnosis: ICD-10-CM Z72.0 Tobacco use Active Diagnosis [facility] Medications Combined list of outpatient medications [...] NEEDED FOR PAIN ORAL DISCONT INUED 04/27/2025 [id number] 4 JOSE RANDOLPH 2023 300 [facility] ACETAMINOPH EN 500MG TAB TAKE TWO TABLETS BY MOUTH THREE TIMES A DAY NEEDED FOR PAIN ORAL ACTIVE 08/09/2024 [id number] 4 KAMILA RICHARDSON 2023 100 [facility] ACETAMINOPH EN 500MG TAB TAKE TWO TABLETS BY MOUTH THREE TIMES A DAY NEEDED FOR PAIN FOR PAIN ORAL DISCONT INUED 07/25/2024 [id number] 4 KATELYNN PERSON 2023 21 [facility] AMOXICILLIN TRIHYDRATE 875MG/CLAVU LANATE K 125MG TAB TAKE 1 TABLET BY MOUTH TWICE A DAY INFECTIO N ORAL DISCONT INUED BY PROVIDE R 07/25/2024 [id number] KATELYNN PERSON 2023 20 [facility] AMOXICILLIN TRIHYDRATE 875MG/CLAVU LANATE K 125MG TAB TAKE 1 TABLET BY MOUTH TWICE A DAY ORAL 05/26/2024 [id number] 4 JOSE RANDOLPH 2023 20 [facility] ASPIRIN 81MG TAB,EC TAKE ONE TABLET BY MOUTH EVERY MORNING FOR HEART DISEASE ORAL ACTIVE 10/05/2024 [id number] 4 MICHAEL ZAZUETA 2023 90 [facility] ATORVASTATI N CA 40MG TAB TAKE ONE-HALF TABLET BY MOUTH AT BEDTIME FOR CHOLESTE ROL ORAL 07/15/2024 [id number] 4 JATINDER BENITEZ 2022 45 [facility] ATROPINE SO4 0.025MG/DIP HENOXYLATE HCL 2.5MG TAB TAKE 1 TABLET BY MOUTH FOUR TIMES A DAY LIQUID OSTOMY OUTPUT ORAL ACTIVE 08/20/2024 [id number] 4 Ramsey FARRELL 2023 112 [facility] ATROPINE SO4 0.025MG/DIP HENOXYLATE HCL 2.5MG TAB TAKE 1 TABLET BY MOUTH FOUR TIMES A DAY FOR DIARRHEA ORAL DISCONT INUED 08/09/2024 [id number] 4 KAMILA RICHARDSON 2023 56 [facility] BISACODYL 5MG TAB,EC TAKE TWO TABLETS BY MOUTH ONCE FOR COLON PREP ORAL 09/14/2023 [id number] 3 PRAFUL RODRIGUEZ 2022 2 [facility] CEFPODOXIME PROXETIL 200MG TAB TAKE ONE TABLET BY MOUTH TWICE A DAY INTRAABD OMINAL INFECTIO N ORAL ACTIVE 08/20/2024 [id number] 4 Ramsey FARRELL 2023 3 [facility] DOCUSATE NA 50MG/SENNOS IDES 8.6MG TAB TAKE 1 TABLET BY MOUTH AT BEDTIME NEEDED FOR CONSTIPA TION ORAL ACTIVE 08/06/2024 [id number] 4 MICHAEL ZAZUETA 2023 14 [facility] DOCUSATE NA 50MG/SENNOS IDES 8.6MG TAB TAKE 1 TABLET BY MOUTH AT BEDTIME FOR CONSTIPA TION ORAL DISCONT INUED (EDIT) 07/25/2024 [id number] 4 KATELYNN PERSON 2023 14 [facility] EMPAGLIFLOZ IN 25MG TAB TAKE ONE-HALF TABLET BY MOUTH EVERY DAY ORAL DISCONT INUED BY PROVIDE R 01/16/2025 [id number] 4 JATINDER BENITEZ 2023 45 [facility] EMPAGLIFLOZ IN 25MG TAB TAKE ONE-HALF TABLET BY MOUTH EVERY DAY ORAL 10/26/2023 [id number] 4 JATINDER BENITEZ 2022 45 [facility] FUROSEMIDE 20MG TAB TAKE ONE TABLET BY MOUTH EVERY DAY FOR EXCESS FLUID ORAL DISCONT INUED BY PROVIDE R 07/11/2025 [id number] 4 KIN POLANCO 2023 90 [facility] FUROSEMIDE 20MG TAB TAKE ONE TABLET BY MOUTH EVERY DAY FOR EXCESS FLUID ORAL DISCONT INUED (EDIT) 05/16/2025 [id number] 4 JATINDER BENITEZ 2023 90 [facility] FUROSEMIDE 20MG TAB TAKE ONE TABLET BY MOUTH EVERY DAY NEEDED FOR EXCESS FLUID TAKE ONE TABLET FOR WEIGHT GAIN OF 3 POUNDS OVERNIGH T OR MORE THAN 5 POUNDS IN 1 WEEK OR LEG SWELLING ORAL DISCONT INUED 01/16/2025 [id number] 4 CELIOJATINDER PITT [place] 2023 90 [facility] FUROSEMIDE 20MG TAB TAKE ONE TABLET BY MOUTH EVERY DAY NEEDED TAKE ONE TABLET FOR WEIGHT GAIN OF 3 POUNDS OVERNIGH T OR MORE THAN 5 POUNDS IN 1 WEEK OR LEG SWELLING TAKE ONE TABLET FOR WEIGHT GAIN OF 3 POUNDS OVERNIGH T OR MORE THAN 5 POUNDS IN 1 WEEK OR LEG SWELLING ORAL 10/26/2023 [id number] 4 CELIOJATINDER PITT [place] 2022 90 [facility] HYDROCHLORO THIAZIDE 12.5MG/NANDO NOPRIL 10MG TAB TAKE ONE HALF TABLET BY MOUTH EVERY DAY FOR BLOOD PRESSURE ORAL DISCONT INUED BY PROVIDE R 05/08/2025 [id number] 4 ELI JATINDER [place] 2023 45 [facility] HYDROCHLORO THIAZIDE 12.5MG/NANDO NOPRIL 10MG TAB TAKE ONE HALF TABLET BY MOUTH EVERY DAY FOR BLOOD PRESSURE ORAL DISCONT INUED 11/21/2024 [id number] 4 ELI JATINDER [place] 2023 45 [facility] HYDROCHLORO THIAZIDE 12.5MG/NANDO NOPRIL 10MG TAB TAKE ONE HALF TABLET BY MOUTH EVERY DAY FOR BLOOD PRESSURE ORAL 10/26/2023 [id number] 3 ELI JATINDER [place] 2022 45 [facility] IBUPROFEN 600MG TAB TAKE ONE TABLET BY MOUTH THREE TIMES A DAY NEEDED FOR PAIN ORAL DISCONT INUED BY PROVIDE R 07/25/2024 [id number] 4 KATELYNN PERSON 2023 21 [facility] ISOSORBIDE MONONITRATE 30MG TAB,SA TAKE ONE TABLET BY MOUTH EVERY DAY FOR CHEST PAIN ORAL DISCONT INUED BY PROVIDE R 12/19/2024 [id number] 4 ELI JATINDER [place] 2023 90 [facility] ISOSORBIDE MONONITRATE 30MG TAB,SA TAKE ONE TABLET BY MOUTH EVERY DAY FOR CHEST PAIN ORAL 10/26/2023 [id number] 4 KEOEDGARDOGISELLJATINDER PITT [place] 2022 90 [facility] LISINOPRIL 10MG TAB TAKE ONE TABLET BY MOUTH EVERY MORNING FOR BLOOD PRESSURE ORAL DISCONT INUED BY PROVIDE R 10/08/2024 [id number] 4 KIN POLANCO 2023 90 [facility] METRONIDAZO LE 500MG TAB TAKE ONE TABLET BY MOUTH THREE TIMES A DAY - TAKE AT 1PM, 2PM, AND 11PM THE DAY BEFORE PROCEDUR E ALONG WITH NEOMYCIN ORAL DISCONT INUED 06/27/2024 [id number] 4 MARYBETH POWELL 2023 3 [facility] NALOXONE HCL 4MG/SPRAY SOLN,SPRAY, NASAL SPRAY 1 DOSE IN ONE NOSTRIL DIRECTED FOR UNRESPON SIVENESS , THEN CALL 911. IF NO CHANGE IN 2-3 MINUTES, GIVE SECOND DOSE IN OPPOSITE NOSTRIL NASAL ACTIVE 07/11/2025 [id number] 4 KAMILA RICHARDSON 2023 2 [facility] NEOMYCIN SO4 500MG TAB TAKE TWO TABLETS BY MOUTH THREE TIMES A DAY PREOP AT 1PM, 2PM AND 11PM ON THE DAY BEFORE COLORECT AL SURGERY (TAKE ALONG WITH METRONID AZOLE) ORAL DISCONT INUED BY PROVIDE R 06/27/2024 [id number] 4 MARYBETH POWELL 2023 6 [facility] NITROFURANT OIN MONOHYDRATE /MACROCRYST ALLINE 100MG CAP,SA TAKE ONE CAPSULE BY MOUTH TWICE A DAY FOR UTI ORAL DISCONT INUED BY PROVIDE R 07/12/2024 [id number] 4 MARYBETH POWELL 2023 14 [facility] NITROGLYCER IN 0.4MG TAB,SUBLING UAL DISSOLVE ONE TABLET UNDER THE TONGUE THREE TIMES A DAY NEEDED FOR CHEST PAIN * MAY REPEAT EVERY 5 MINUTES- -NO MORE THAN 3 TOTAL SUBLIN GUAL ACTIVE 07/11/2025 [id number] 4 KIN POLANCO 2023 100 [facility] NITROGLYCER IN 0.4MG TAB,SUBLING UAL DISSOLVE ONE TABLET UNDER THE TONGUE THREE TIMES A DAY NEEDED CHEST PAIN FOR CHEST PAIN * MAY REPEAT EVERY 5 MINUTES- -NO MORE THAN 3 TOTAL SUBLIN GUAL DISCONT INUED 11/21/2024 [id number] 4 JATINDER BENITEZ L 2023 100 [facility] NITROGLYCER IN 0.4MG TAB,SUBLING UAL DISSOLVE ONE TABLET UNDER THE TONGUE THREE TIMES A DAY NEEDED FOR CHEST PAIN * MAY REPEAT EVERY 5 MINUTES- -NO MORE THAN 3 TOTAL SUBLIN GUAL DISCONT INUED 05/13/2024 [id number] 3 JATINDER BENITEZ L 2022 100 [facility] ONDANSETRON HCL 8MG TAB TAKE ONE TABLET BY MOUTH EVERY 8 HOURS NEEDED FOR NAUSEA ORAL ACTIVE 08/09/2024 [id number] 4 KAMILA RICHARDSON N 2023 90 [facility] OXYCODONE HCL 5MG TAB TAKE ONE TABLET BY MOUTH EVERY 6 HOURS NEEDED FOR PAIN ORAL ACTIVE 08/20/2024 [id number] 4 Ramsey FARRELL 2023 56 [facility] OXYCODONE HCL 5MG TAB TAKE ONE TABLET BY MOUTH EVERY 4 HOURS NEEDED FOR PAIN ORAL DISCONT INUED 08/09/2024 [id number] 4 KAMILA RICHARDSON N 2023 12 [facility] PEG-3350/EL ECTROLYTES PWDR TAKE 1 CONTAINE R (4 LITERS) BY MOUTH ONCE PRE-OP FOR COLO-REC [place] SURGERY - INSTRUCT ION SHEET MAILED FROM CLINIC ORAL DISCONT INUED BY PROVIDE R 06/27/2024 [id number] 4 MARYBETH POWELL 2023 1 [facility] PEG-3350/EL ECTROLYTES PWDR TAKE ONE CONTAINE R BY MOUTH DIRECTED FOR COLON PREP ORAL 09/14/2023 [id number] 3 PRAFUL RODRIGUEZ 2022 1 [facility] PHENAZOPYRI DINE HCL 100MG TAB TAKE TWO TABLETS BY MOUTH THREE TIMES A DAY NEEDED FOR BLADDER PAIN ORAL 05/26/2024 [id number] 4 JOSE [facility]ANDOLPH 2023 90 [facility] PSYLL[facility]UM PWDR,ORAL TAKE 2 TEASPOON SFUL BY MOUTH EVERY DAY FOR CONSTIPA TION ORAL ACTIVE 01/30/2025 [id number] 4 JATINDER [facility]ENITEZ 2023 1170 [facility] PSYLLIUM PWDR,ORAL TAKE 2 TEASPOON SFUL BY MOUTH EVERY DAY FOR CONSTIPA TION ORAL DISCONT INUED (EDIT) 10/05/2024 [id number] 4 JACOB FAUSTIN 2023 390 [facility] SODIUM CHLORIDE 0.9% (PF) INJ,SYRINGE ,10ML INJECT 10 ML TOPICALL Y DIRECTED FOR IRRIGATI ON FOR WOUND CLEANSIN G TOPICA L 06/11/2024 [id number] 4 MARYBETH POWELL 2023 60 [facility] SPIRONOLACT ONE 25MG TAB TAKE ONE-HALF TABLET BY MOUTH EVERY DAY FOR BLOOD PRESSURE ORAL DISCONT INUED BY JADEN Hammond 01/30/2025 [id number] 4 JATINDER BENITEZ 2023 45 [facility] SPIRONOLACT ONE 25MG TAB TAKE ONE-HALF TABLET BY MOUTH EVERY DAY ORAL DISCONT INUED (EDIT) 01/13/2025 [id number] 4 KAYCE MONDRAGON ICA C 2023 15 [facility] SPIRONOLACT ONE 25MG TAB TAKE ONE-HALF TABLET BY MOUTH EVERY DAY ORAL DISCONT INUED 08/18/2024 [id number] 4 KAYCE MONDRAGON ICA C 2022 15 [facility] SPIRONOLACT ONE 25MG TAB TAKE ONE-HALF TABLET BY MOUTH EVERY DAY ORAL DISCONT INUED 05/06/2024 [id number] JATINDER BENITEZ 2022 15 [facility] Allergies, Adverse Reactions, Alerts Combined list of allergies from Department of Defense and Veterans Affairs facilities. It does not include entries that were removed or entered in error. Substance Category Reaction Severity Reaction type Status Date Reported Comments Source TERAZOSIN Propensity to adverse reactions to drug (finding) Nausea active 5 [facility] Immunizations Combined list of available immunizations from the Department of Defense and Veterans Affairs facilities. Immunization Series Date Given Administered By Site Reaction Lot Number CVX Code Drug Drying Frame Operator Status Comments Source INFLUENZA, HIGH-DOSE, TRIVALENT, PF 2023 RUKHSANA BOUCHER A LEFT DELTO ID [id number] A 135 complet ed [facility] COVID-19 (Iterable), MRNA, LNP-S, PF, CORINA-SUCROSE, 30 MCG/0.3 ML (AGES 12+ YEARS) 2023 GONZÁLEZ BERGERON LEFT DELTO ID [id number] 309 complet ed [facility] COVID-19 (Iterable), MRNA, LNP-S, BIVALENT BOOSTER, PF, 30 MCG/0.3 ML DOSE 1 2022 LISA WILSON LEFT DELTO ID [id number] 300 complet ed [facility] INFLUENZA VACCINE, QUADRIVALENT, ADJUVANTED 2021 205 complet ed [facility] INFLUENZA, UNSPECIFIED FORMULATION 2021 88 complet ed [facility] COVID-19 (PFIZER), MRNA, LNP-S, PF, 30 MCG/0.3 ML DOSE, CORINA-SUCROSE (AGES 12+ YEARS) 4 2021 217 complet ed PFR; [id number]; 2 [facility] ZOSTER RECOMBINANT 2 2021 187 complet ed [facility] COVID-19 (PFIZER), MRNA, LNP-S, PF, 30 MCG/0.3 ML DOSE 2021 208 complet ed [facility] ZOSTER, UNSPECIFIED FORMULATION 2021 188 complet ed [facility] TDAP 2021 115 complet ed [facility] ZOSTER RECOMBINANT 1 2021 187 complet ed [facility] ZOSTER, UNSPECIFIED FORMULATION 2021 188 complet ed [facility] COVID-19 (PFIZER), MRNA, LNP-S, PF, 30 MCG/0.3 ML DOSE 3 2020 208 complet ed PRF; [id number]; 2 [facility] INFLUENZA, INJECTABLE, QUADRIVALENT, PRESERVATIVE FREE 2020 150 complet ed [facility] COVID-19 (PFIZER), MRNA, LNP-S, PF, 30 MCG/0.3 ML DOSE 2 2020 208 complet ed PFR; [id number]; 1 [facility] COVID-19 (PFIZER), MRNA, LNP-S, PF, 30 MCG/0.3 ML DOSE 1 2020 208 complet ed PFR; [id number]; 1 [facility] INFLUENZA, INJECTABLE, QUADRIVALENT, PRESERVATIVE FREE 2019 150 complet ed [facility] INFLUENZA, SEASONAL, INJECTABLE, PRESERVATIVE FREE 2018 140 complet ed [facility] INFLUENZA, UNSPECIFIED FORMULATION 2018 88 complet ed [facility] PNEUMOCOCCAL POLYSACCHARID E PPV23 2018 33 complet ed [place] and CO,[id number] 20 [facility] INFLUENZA, SEASONAL, INJECTABLE, PRESERVATIVE FREE 2017 140 complet ed [facility] INFLUENZA, HIGH DOSE SEASONAL 2016 135 complet ed [facility] PNEUMOCOCCAL CONJUGATE PCV 13 2016 133 complet ed Edna [id number] EXP: 12/2017 [facility] INFLUENZA, SEASONAL, INJECTABLE, PRESERVATIVE FREE 2014 140 complet ed [facility] PNEUMOCOCCAL POLYSACCHARID E PPV23 2013 33 complet ed 000 [facility] PNEUMOCOCCAL, UNSPECIFIED FORMULATION 2013 109 complet ed [facility] ZOSTER LIVE 2013 121 complet ed 0000 [facility] INFLUENZA, UNSPECIFIED FORMULATION 2010 88 complet ed [facility] TDAP 2010 115 complet ed aaaa [facility] Results Combined list of recent chemistry, hematology and other laboratory results from Department of Defense and Veterans Affairs, ranging from 15 months to all on record, depending upon the facility. Order Name Results Value Reference Range Date Interpretation Specimen Comments Source BASIC METABOLIC PANEL+MG CREATININE [MASS/VOLUM E] IN SERUM OR PLASMA 0.8 mg/dL 0.7 - 1.2 07/21 Specimen Type: PLASMA No comment entered. Ordering Provider: KAYLA GOLDEN Report Released Date/Time: Jul 20, 2024 06:50 PM Reporting Lab: [facility] [id number] Performing Lab: [facility] [phone] [place] [facility] BASIC METABOLIC PANEL+MG UREA NITROGEN [MASS/VOLUM E] IN SERUM OR PLASMA 31 mg/dL 8 - 26 07/21 H Specimen Type: PLASMA No comment entered. Ordering Provider: KAYLA GOLDEN Report Released Date/Time: Jul 20, 2024 06:50 PM Reporting Lab: [facility] [phone] Performing Lab: [facility] [address] [place] [facility] BASIC METABOLIC PANEL+MG GLUCOSE [MASS/VOLUM E] IN SERUM OR PLASMA 120 mg/dL 70 - 100 07/21 H Specimen Type: PLASMA No comment entered. Ordering Provider: KAYLA GOLDEN Report Released Date/Time: Jul 20, 2024 06:50 PM Reporting Lab: [facility] [phone] Performing Lab: [facility] [phone] [place] [facility] BASIC METABOLIC PANEL+MG SODIUM [MOLES/VOLU ME] IN SERUM OR PLASMA 125 mmol/L 136 - 145 07/21 L Specimen Type: PLASMA No comment entered. Ordering Provider: KAYLA GOLDEN Report Released Date/Time: Jul 20, 2024 06:50 PM Reporting Lab: [facility] [phone] Performing Lab: [facility] [phone] [place] [facility] BASIC METABOLIC PANEL+MG POTASSIUM [MOLES/VOLU ME] IN SERUM OR PLASMA 4.4 mmol/L 3.5 - 5.1 07/21 Specimen Type: PLASMA No comment entered. Ordering Provider: KAYLA GOLDEN Report Released Date/Time: Jul 20, 2024 06:50 PM Reporting Lab: [facility] [phone] Performing Lab: [facility] [phone] [place] [facility] BASIC METABOLIC PANEL+MG CHLORIDE [MOLES/VOLU ME] IN SERUM OR PLASMA 100 mmol/L 98 - 107 07/21 Specimen Type: PLASMA No comment entered. Ordering Provider: KAYLA GOLDEN Report Released Date/Time: Jul 20, 2024 06:50 PM Reporting Lab: [facility] [phone] Performing Lab: [facility] [phone] [place] [facility] BASIC METABOLIC PANEL+MG CARBON DIOXIDE, TOTAL [MOLES/VOLU ME] IN SERUM OR PLASMA 17 mmol/L 22 - 29 07/21 L Specimen Type: PLASMA No comment entered. Ordering Provider: KAYLA GOLDEN Report Released Date/Time: Jul 20, 2024 06:50 PM Reporting Lab: [facility] [phone] Performing Lab: [facility] [phone] [place] [facility] BASIC METABOLIC PANEL+MG CALCIUM [MASS/VOLUM E] IN SERUM OR PLASMA 9.6 mg/dL 8.4 - 10.2 07/21 Specimen Type: PLASMA No comment entered. Ordering Provider: KAYLA GOLDEN Report Released Date/Time: Jul 20, 2024 06:50 PM Reporting Lab: [facility] [id number] Performing Lab: [facility] [id number] [place] [facility] BASIC METABOLIC PANEL+MG MAGNESIUM [MASS/VOLUM E] IN SERUM OR PLASMA 1.9 mg/dL 1.6 - 2.6 07/21 Specimen Type: PLASMA No comment entered. Ordering Provider: KAYLA GOLDEN Report Released Date/Time: Jul 20, 2024 06:50 PM Reporting Lab: [facility] [phone] Performing Lab: [facility] [phone] [place] [facility] BASIC METABOLIC PANEL+MG ANION GAP IN SERUM OR PLASMA 8 mmol/L 5 - 15 07/21 Specimen Type: PLASMA No comment entered. Ordering Provider: KAYLA GOLDEN Report Released Date/Time: Jul 20, 2024 06:50 PM Reporting Lab: [facility] [phone] Performing Lab: [facility] [id number] [place] [facility] BASIC METABOLIC PANEL+MG GLOMERULAR FILTRATION RATE/1.73 SQ M.PREDICTED [VOLUME RATE/AREA] IN SERUM, PLASMA OR BLOOD BY CREATININE- BASED FORMULA (CKD-EPI 2020) >90 60 07/21 Specimen Type: PLASMA No comment entered. Ordering Provider: KAYLA GOLDEN Report Released Date/Time: Jul 20, 2024 06:50 PM Reporting Lab: [facility] [address] Performing Lab: [facility] [address] [facility] CBC LEUKOCYTES [#/VOLUME] IN BLOOD BY AUTOMATED COUNT 16.0 4.0 - 11.0 07/21 H Specimen Type: BLOOD No comment entered. Ordering Provider: KAYLA GOLDEN Report Released Date/Time: Jul 20, 2024 06:50 PM Reporting Lab: [facility] [address] Performing Lab: [facility] [address] [facility] CBC ERYTHROCYTE S [#/VOLUME] IN BLOOD BY AUTOMATED COUNT 5.16 4.60 - 6.20 07/21 Specimen Type: BLOOD No comment entered. Ordering Provider: KAYLA GOLDEN Report Released Date/Time: Jul 20, 2024 06:50 PM Reporting Lab: [facility] [address] Performing Lab: [facility] [address] [facility] CBC HEMOGLOBIN [MASS/VOLUM E] IN BLOOD 15.8 g/dL 13.5 - 17.9 07/21 Specimen Type: BLOOD No comment entered. Ordering Provider: KAYLA GOLDEN Report Released Date/Time: Jul 20, 2024 06:50 PM Reporting Lab: [facility] [address] Performing Lab: [facility] [address] [facility] CBC HEMATOCRIT [VOLUME FRACTION] OF BLOOD BY AUTOMATED COUNT 45.5 41.0 - 54.0 07/21 Specimen Type: BLOOD No comment entered. Ordering Provider: KAYLA GOLDEN Report Released Date/Time: Jul 20, 2024 06:50 PM Reporting Lab: [facility] [address] Performing Lab: [facility] [address] [facility] CBC MCV [ENTITIC VOLUME] BY AUTOMATED COUNT 88.2 fL 80.0 - 100.0 07/21 Specimen Type: BLOOD No comment entered. Ordering Provider: KAYLA GOLDEN Report Released Date/Time: Jul 20, 2024 06:50 PM Reporting Lab: [facility] [address] Performing Lab: [facility] [address] [facility] CBC MCH [ENTITIC MASS] BY AUTOMATED COUNT 30.6 pg 27.0 - 33.0 07/21 Specimen Type: BLOOD No comment entered. Ordering Provider: KAYLA GOLDEN Report Released Date/Time: Jul 20, 2024 06:50 PM Reporting Lab: [facility] [address] Performing Lab: [facility] [address] [facility] CBC MCHC [MASS/VOLUM E] BY AUTOMATED COUNT 34.7 g/dL 32.0 - 37.5 07/21 Specimen Type: BLOOD No comment entered. Ordering Provider: KAYLA GOLDEN Report Released Date/Time: Jul 20, 2024 06:50 PM Reporting Lab: [facility] [address] Performing Lab: [facility] [address] [facility] CBC PLATELETS [#/VOLUME] IN BLOOD BY AUTOMATED COUNT 428 150 - 400 07/21 H Specimen Type: BLOOD No comment entered. Ordering Provider: KAYLA GOLDEN Report Released Date/Time: Jul 20, 2024 06:50 PM Reporting Lab: [facility] [address] Performing Lab: [facility] [address] [facility] CBC PLATELET MEAN VOLUME [ENTITIC VOLUME] IN BLOOD BY AUTOMATED COUNT 10.8 fL 9.1 - 13.0 07/21 Specimen Type: BLOOD No comment entered. Ordering Provider: KAYLA GOLDEN Report Released Date/Time: Jul 20, 2024 06:50 PM Reporting Lab: [facility] [address] Performing Lab: [facility] [address] [facility] CBC ERYTHROCYTE DISTRIBUTIO N WIDTH [RATIO] BY AUTOMATED COUNT 13.6 11.5 - 14.5 07/21 Specimen Type: BLOOD No comment entered. Ordering Provider: KAYLA GOLDEN Report Released Date/Time: Jul 20, 2024 06:50 PM Reporting Lab: [facility] [address] Performing Lab: [facility] [address] [facility] SODIUM,UR INE RANDOM SODIUM [MOLES/VOLU ME] IN URINE <20mmo l/L 07/20 Specimen Type: URINE No comment entered. Ordering Provider: KAYLA GOLDEN Report Released Date/Time: Jul 20, 2024 08:22 AM Reporting Lab: [facility] [address] Performing Lab: [facility] [address] [facility] OSMOLALIT Y,URINE OSMOLALITY OF URINE 648 mosm/k g 500 - 800 07/20 Specimen Type: URINE No comment entered. Ordering Provider: KAYLA GOLDEN Report Released Date/Time: Jul 20, 2024 08:22 AM Reporting Lab: [facility] [address] Performing Lab: [facility] [address] [facility] BASIC METABOLIC PANEL+MG CREATININE [MASS/VOLUM E] IN SERUM OR PLASMA 0.8 mg/dL 0.7 - 1.2 07/20 Specimen Type: PLASMA No comment entered. Ordering Provider: KAYLA GOLDEN Report Released Date/Time: Jul 19, 2024 06:13 PM Reporting Lab: [facility] [address] Performing Lab: [facility] [address] [facility] BASIC METABOLIC PANEL+MG UREA NITROGEN [MASS/VOLUM E] IN SERUM OR PLASMA 36 mg/dL 8 - 26 07/20 H Specimen Type: PLASMA No comment entered. Ordering Provider: KAYLA GOLDEN Report Released Date/Time: Jul 19, 2024 06:13 PM Reporting Lab: [facility] [address] Performing Lab: [facility] [address] [facility] BASIC METABOLIC PANEL+MG GLUCOSE [MASS/VOLUM E] IN SERUM OR PLASMA 111 mg/dL 70 - 100 07/20 H Specimen Type: PLASMA No comment entered. Ordering Provider: KAYLA GOLDEN Report Released Date/Time: Jul 19, 2024 06:13 PM Reporting Lab: [facility] [address] Performing Lab: [facility] [address] [facility] BASIC METABOLIC PANEL+MG SODIUM [MOLES/VOLU ME] IN SERUM OR PLASMA 121 mmol/L 136 - 145 07/20 L Specimen Type: PLASMA No comment entered. Ordering Provider: KAYLA GOLDEN Report Released Date/Time: Jul 19, 2024 06:13 PM Reporting Lab: [facility] [address] Performing Lab: [facility] [address] [facility] BASIC METABOLIC PANEL+MG POTASSIUM [MOLES/VOLU ME] IN SERUM OR PLASMA 4.1 mmol/L 3.5 - 5.1 07/20 Specimen Type: PLASMA No comment entered. Ordering Provider: KAYLA GOLDEN Report Released Date/Time: Jul 19, 2024 06:13 PM Reporting Lab: [facility] [address] Performing Lab: [facility] [address] [facility] BASIC METABOLIC PANEL+MG CHLORIDE [MOLES/VOLU ME] IN SERUM OR PLASMA 99 mmol/L 98 - 107 07/20 Specimen Type: PLASMA No comment entered. Ordering Provider: KAYLA GOLDEN Report Released Date/Time: Jul 19, 2024 06:13 PM Reporting Lab: [facility] [address] Performing Lab: [facility] [address] [facility] BASIC METABOLIC PANEL+MG CARBON DIOXIDE, TOTAL [MOLES/VOLU ME] IN SERUM OR PLASMA 14 mmol/L 22 - 29 07/20 L Specimen Type: PLASMA No comment entered. Ordering Provider: KAYLA GOLDEN Report Released Date/Time: Jul 19, 2024 06:13 PM Reporting Lab: [facility] [address] Performing Lab: [facility] [address] [facility] BASIC METABOLIC PANEL+MG CALCIUM [MASS/VOLUM E] IN SERUM OR PLASMA 9.5 mg/dL 8.4 - 10.2 07/20 Specimen Type: PLASMA No comment entered. Ordering Provider: KAYLA GOLDEN Report Released Date/Time: Jul 19, 2024 06:13 PM Reporting Lab: [facility] [address] Performing Lab: [facility] [address] [facility] BASIC METABOLIC PANEL+MG MAGNESIUM [MASS/VOLUM E] IN SERUM OR PLASMA 1.8 mg/dL 1.6 - 2.6 07/20 Specimen Type: PLASMA No comment entered. Ordering Provider: KAYLA GOLDEN Report Released Date/Time: Jul 19, 2024 06:13 PM Reporting Lab: [facility] [address] Performing Lab: [facility] [address] [facility] BASIC METABOLIC PANEL+MG ANION GAP IN SERUM OR PLASMA 8 mmol/L 5 - 15 07/20 Specimen Type: PLASMA No comment entered. Ordering Provider: KAYLA GOLDEN Report Released Date/Time: Jul 19, 2024 06:13 PM Reporting Lab: [facility] [address] Performing Lab: [facility] [address] [facility] BASIC METABOLIC PANEL+MG GLOMERULAR FILTRATION RATE/1.73 SQ M.PREDICTED [VOLUME RATE/AREA] IN SERUM, PLASMA OR BLOOD BY CREATININE- BASED FORMULA (CKD-EPI 2020) >90 60 07/20 Specimen Type: PLASMA No comment entered. Ordering Provider: KAYLA GOLDEN Report Released Date/Time: Jul 19, 2024 06:13 PM Reporting Lab: [facility] [address] Performing Lab: [facility] [address] [facility] CBC & DIFF LEUKOCYTES [#/VOLUME] IN BLOOD BY AUTOMATED COUNT 16.6 4.0 - 11.0 07/20 H Specimen Type: BLOOD Comment: Automated Differentia l Performed Ordering Provider: KAYLA GOLDEN Report Released Date/Time: Jul 19, 2024 06:13 PM Reporting Lab: [facility] [address] Performing Lab: [facility] [address] [facility] CBC & DIFF ERYTHROCYTE S [#/VOLUME] IN BLOOD BY AUTOMATED COUNT 4.96 4.60 - 6.20 07/20 Specimen Type: BLOOD Comment: Automated Differentia l Performed Ordering Provider: KAYLA GOLDEN Report Released Date/Time: Jul 19, 2024 06:13 PM Reporting Lab: [facility] [address] Performing Lab: [facility] [address] [facility] CBC & DIFF HEMOGLOBIN [MASS/VOLUM E] IN BLOOD 15.1 g/dL 13.5 - 17.9 07/20 Specimen Type: BLOOD Comment: Automated Differentia l Performed Ordering Provider: KAYLA GOLDEN Report Released Date/Time: Jul 19, 2024 06:13 PM Reporting Lab: [facility] [address] Performing Lab: [facility] [address] [facility] CBC & DIFF HEMATOCRIT [VOLUME FRACTION] OF BLOOD BY AUTOMATED COUNT 43.7 41.0 - 54.0 07/20 Specimen Type: BLOOD Comment: Automated Differentia l Performed Ordering Provider: KAYLA GOLDEN Report Released Date/Time: Jul 19, 2024 06:13 PM Reporting Lab: [facility] [address] Performing Lab: [facility] [address] [facility] CBC & DIFF MCV [ENTITIC VOLUME] BY AUTOMATED COUNT 88.1 fL 80.0 - 100.0 07/20 Specimen Type: BLOOD Comment: Automated Differentia l Performed Ordering Provider: KAYLA GOLDEN Report Released Date/Time: Jul 19, 2024 06:13 PM Reporting Lab: [facility] [address] Performing Lab: [facility] [address] [facility] CBC & DIFF MCH [ENTITIC MASS] BY AUTOMATED COUNT 30.4 pg 27.0 - 33.0 07/20 Specimen Type: BLOOD Comment: Automated Differentia l Performed Ordering Provider: KAYLA GOLDEN Report Released Date/Time: Jul 19, 2024 06:13 PM Reporting Lab: [facility] [address] Performing Lab: [facility] [address] [facility] CBC & DIFF MCHC [MASS/VOLUM E] BY AUTOMATED COUNT 34.6 g/dL 32.0 - 37.5 07/20 Specimen Type: BLOOD Comment: Automated Differentia l Performed Ordering Provider: KAYLA GOLDEN Report Released Date/Time: Jul 19, 2024 06:13 PM Reporting Lab: [facility] [address] Performing Lab: [facility] [address] [facility] CBC & DIFF PLATELETS [#/VOLUME] IN BLOOD BY AUTOMATED COUNT 431 150 - 400 07/20 H Specimen Type: BLOOD Comment: Automated Differentia l Performed Ordering Provider: KAYAL GOLDEN Report Released Date/Time: Jul 19, 2024 06:13 PM Reporting Lab: [facility] [address] Performing Lab: [facility] [address] [facility] CBC & DIFF PLATELET MEAN VOLUME [ENTITIC VOLUME] IN BLOOD BY AUTOMATED COUNT 10.8 fL 9.1 - 13.0 07/20 Specimen Type: BLOOD Comment: Automated Differentia l Performed Ordering Provider: KAYLA GOLDEN Report Released Date/Time: Jul 19, 2024 06:13 PM Reporting Lab: [facility] [address] Performing Lab: [facility] [address] [facility] CBC & DIFF NEUTROPHILS /100 LEUKOCYTES IN BLOOD BY MANUAL COUNT 80.5 40.0 - 80.0 07/20 H Specimen Type: BLOOD Comment: Automated Differentia l Performed Ordering Provider: KAYLA GOLDEN Report Released Date/Time: Jul 19, 2024 06:13 PM Reporting Lab: [facility] [address] Performing Lab: [facility] [address] [facility] CBC & DIFF LYMPHOCYTES /100 LEUKOCYTES IN BLOOD BY MANUAL COUNT 9.2 15.0 - 45.0 07/20 L Specimen Type: BLOOD Comment: Automated Differentia l Performed Ordering Provider: KAYLA GOLDEN Report Released Date/Time: Jul 19, 2024 06:13 PM Reporting Lab: [facility] [address] Performing Lab: [facility] [address] [facility] CBC & DIFF MONOCYTES/1 00 LEUKOCYTES IN BLOOD BY AUTOMATED COUNT 8.6 2.0 - 12.0 07/20 Specimen Type: BLOOD Comment: Automated Differentia l Performed Ordering Provider: KAYLA GOLDEN Report Released Date/Time: Jul 19, 2024 06:13 PM Reporting Lab: [facility] [address] Performing Lab: [facility] [address] [facility] CBC & DIFF EOSINOPHILS /100 LEUKOCYTES IN BLOOD BY AUTOMATED COUNT 0.6 0.0 - 6.0 07/20 Specimen Type: BLOOD Comment: Automated Differentia l Performed Ordering Provider: KAYLA GOLDEN Report Released Date/Time: Jul 19, 2024 06:13 PM Reporting Lab: [facility] [address] Performing Lab: [facility] [address] [facility] CBC & DIFF BASOPHILS/1 00 LEUKOCYTES IN BLOOD BY MANUAL COUNT 0.1 0.0 - 2.0 07/20 Specimen Type: BLOOD Comment: Automated Differentia l Performed Ordering Provider: KAYAL GOLDEN Report Released Date/Time: Jul 19, 2024 06:13 PM Reporting Lab: [facility] [address] Performing Lab: [facility] [address] [facility] CBC & DIFF ERYTHROCYTE DISTRIBUTIO N WIDTH [RATIO] BY AUTOMATED COUNT 13.8 11.5 - 14.5 07/20 Specimen Type: BLOOD Comment: Automated Differentia l Performed Ordering Provider: AKYLA GOLDEN Report Released Date/Time: Jul 19, 2024 06:13 PM Reporting Lab: [facility] [address] Performing Lab: [facility] [address] [facility] CBC & DIFF LYMPHOCYTES [#/VOLUME] IN BLOOD BY AUTOMATED COUNT 1.5 1.0 - 4.0 07/20 Specimen Type: BLOOD Comment: Automated Differentia l Performed Ordering Provider: KAYLA GOLDEN Report Released Date/Time: Jul 19, 2024 06:13 PM Reporting Lab: [facility] [address] Performing Lab: [facility] [address] [facility] CBC & DIFF MONOCYTES [#/VOLUME] IN BLOOD BY AUTOMATED COUNT 1.4 0.1 - 1.0 07/20 H Specimen Type: BLOOD Comment: Automated Differentia l Performed Ordering Provider: KAYLA GOLDEN Report Released Date/Time: Jul 19, 2024 06:13 PM Reporting Lab: [facility] [address] Performing Lab: [facility] [address] [facility] CBC & DIFF NEUTROPHILS [#/VOLUME] IN BLOOD BY AUTOMATED COUNT 13.3 2.0 - 7.7 07/20 H Specimen Type: BLOOD Comment: Automated Differentia l Performed Ordering Provider: KAYLA GOLDEN Report Released Date/Time: Jul 19, 2024 06:13 PM Reporting Lab: [facility] [address] Performing Lab: [facility] [address] [facility] CBC & DIFF EOSINOPHILS [#/VOLUME] IN BLOOD BY AUTOMATED COUNT 0.1 0.0 - 0.5 07/20 Specimen Type: BLOOD Comment: Automated Differentia l Performed Ordering Provider: KAYLA GOLDEN Report Released Date/Time: Jul 19, 2024 06:13 PM Reporting Lab: [facility] [address] Performing Lab: [facility] [address] [facility] CBC & DIFF BASOPHILS [#/VOLUME] IN BLOOD BY AUTOMATED COUNT 0.0 0.0 - 0.2 07/20 Specimen Type: BLOOD Comment: Automated Differentia l Performed Ordering Provider: KAYLA GOLDEN Report Released Date/Time: Jul 19, 2024 06:13 PM Reporting Lab: [facility] [address] Performing Lab: [facility] [address] [facility] CBC & DIFF IG(META,MYE LO,PRO) 1.0 07/20 Specimen Type: BLOOD Comment: Automated Differentia l Performed Ordering Provider: KAYLA GOLDEN Report Released Date/Time: Jul 19, 2024 06:13 PM Reporting Lab: [facility] [address] Performing Lab: [facility] [address] [facility] CBC & DIFF IMMATURE GRANULOCYTE S [PRESENCE] IN BLOOD BY AUTOMATED COUNT 0.2 0.0 - 0.1 07/20 H Specimen Type: BLOOD Comment: Automated Differentia l Performed Ordering Provider: KAYLA GOLDEN Report Released Date/Time: Jul 19, 2024 06:13 PM Reporting Lab: [facility] [address] Performing Lab: [facility] [address] [facility] OSMOLALIT Y,SERUM OSMOLALITY OF SERUM OR PLASMA 266 mosm/k g 276 - 305 07/20 L Specimen Type: SERUM No comment entered. Ordering Provider: KAYLA GOLDEN Report Released Date/Time: Jul 20, 2024 09:47 AM Reporting Lab: [facility] [address] Performing Lab: [facility] [address] [facility] BASIC METABOLIC PANEL+MG CREATININE [MASS/VOLUM E] IN SERUM OR PLASMA 1.0 mg/dL 0.7 - 1.2 07/19 Specimen Type: PLASMA No comment entered. Ordering Provider: KAYLA GOLDEN Report Released Date/Time: Jul 18, 2024 10:24 PM Reporting Lab: [facility] [address] Performing Lab: [facility] [address] [facility] BASIC METABOLIC PANEL+MG UREA NITROGEN [MASS/VOLUM E] IN SERUM OR PLASMA 40 mg/dL 8 - 26 07/19 H Specimen Type: PLASMA No comment entered. Ordering Provider: KAYLA GOLDEN Report Released Date/Time: Jul 18, 2024 10:24 PM Reporting Lab: [facility] [address] Performing Lab: [facility] [address] [facility] BASIC METABOLIC PANEL+MG GLUCOSE [MASS/VOLUM E] IN SERUM OR PLASMA 104 mg/dL 70 - 100 07/19 H Specimen Type: PLASMA No comment entered. Ordering Provider: KAYLA GOLDEN Report Released Date/Time: Jul 18, 2024 10:24 PM Reporting Lab: [facility] [address] Performing Lab: [facility] [address] [facility] BASIC METABOLIC PANEL+MG SODIUM [MOLES/VOLU ME] IN SERUM OR PLASMA 129 mmol/L 136 - 145 07/19 L Specimen Type: PLASMA No comment entered. Ordering Provider: KAYLA GOLDEN Report Released Date/Time: Jul 18, 2024 10:24 PM Reporting Lab: [facility] [address] Performing Lab: [facility] [address] [facility] BASIC METABOLIC PANEL+MG POTASSIUM [MOLES/VOLU ME] IN SERUM OR PLASMA 3.3 mmol/L 3.5 - 5.1 07/19 L Specimen Type: PLASMA No comment entered. Ordering Provider: KAYLA GOLDEN Report Released Date/Time: Jul 18, 2024 10:24 PM Reporting Lab: [facility] [address] Performing Lab: [facility] [address] [facility] BASIC METABOLIC PANEL+MG CHLORIDE [MOLES/VOLU ME] IN SERUM OR PLASMA 104 mmol/L 98 - 107 07/19 Specimen Type: PLASMA No comment entered. Ordering Provider: KAYLA GOLDEN Report Released Date/Time: Jul 18, 2024 10:24 PM Reporting Lab: [facility] [address] Performing Lab: [facility] [address] [facility] BASIC METABOLIC PANEL+MG CARBON DIOXIDE, TOTAL [MOLES/VOLU ME] IN SERUM OR PLASMA 16 mmol/L 22 - 29 07/19 L Specimen Type: PLASMA No comment entered. Ordering Provider: KAYLA GOLDEN Report Released Date/Time: Jul 18, 2024 10:24 PM Reporting Lab: [facility] [address] Performing Lab: [facility] [address] [facility] BASIC METABOLIC PANEL+MG CALCIUM [MASS/VOLUM E] IN SERUM OR PLASMA 8.0 mg/dL 8.4 - 10.2 07/19 L Specimen Type: PLASMA No comment entered. Ordering Provider: KAYLA GOLDEN Report Released Date/Time: Jul 18, 2024 10:24 PM Reporting Lab: [facility] [address] Performing Lab: [facility] [address] [facility] BASIC METABOLIC PANEL+MG MAGNESIUM [MASS/VOLUM E] IN SERUM OR PLASMA 1.7 mg/dL 1.6 - 2.6 07/19 Specimen Type: PLASMA No comment entered. Ordering Provider: KAYLA GOLDEN Report Released Date/Time: Jul 18, 2024 10:24 PM Reporting Lab: [facility] [address] Performing Lab: [facility] [address] [facility] BASIC METABOLIC PANEL+MG ANION GAP IN SERUM OR PLASMA 9 mmol/L 5 - 15 07/19 Specimen Type: PLASMA No comment entered. Ordering Provider: KAYLA GOLDEN Report Released Date/Time: Jul 18, 2024 10:24 PM Reporting Lab: [facility] [address] Performing Lab: [facility] [address] [facility] BASIC METABOLIC PANEL+MG GLOMERULAR FILTRATION RATE/1.73 SQ M.PREDICTED [VOLUME RATE/AREA] IN SERUM, PLASMA OR BLOOD BY CREATININE- BASED FORMULA (CKD-EPI 2020) 80 60 07/19 Specimen Type: PLASMA No comment entered. Ordering Provider: KAYLA GOLDEN Report Released Date/Time: Jul 18, 2024 10:24 PM Reporting Lab: [facility] [address] Performing Lab: [facility] [address] [facility] CBC LEUKOCYTES [#/VOLUME] IN BLOOD BY AUTOMATED COUNT 17.3 4.0 - 11.0 07/19 H Specimen Type: BLOOD No comment entered. Ordering Provider: KAYLA GOLDEN Report Released Date/Time: Jul 18, 2024 10:24 PM Reporting Lab: [facility] [address] Performing Lab: [facility] [address] [facility] CBC ERYTHROCYTE S [#/VOLUME] IN BLOOD BY AUTOMATED COUNT 4.83 4.60 - 6.20 07/19 Specimen Type: BLOOD No comment entered. Ordering Provider: KAYLA GOLDEN Report Released Date/Time: Jul 18, 2024 10:24 PM Reporting Lab: [facility] [address] Performing Lab: [facility] [address] [facility] CBC HEMOGLOBIN [MASS/VOLUM E] IN BLOOD 14.8 g/dL 13.5 - 17.9 07/19 Specimen Type: BLOOD No comment entered. Ordering Provider: KAYLA GOLDEN Report Released Date/Time: Jul 18, 2024 10:24 PM Reporting Lab: [facility] [address] Performing Lab: [facility] [address] [facility] CBC HEMATOCRIT [VOLUME FRACTION] OF BLOOD BY AUTOMATED COUNT 42.6 41.0 - 54.0 07/19 Specimen Type: BLOOD No comment entered. Ordering Provider: KAYLA GOLDEN Report Released Date/Time: Jul 18, 2024 10:24 PM Reporting Lab: [facility] [address] Performing Lab: [facility] [address] [facility] CBC MCV [ENTITIC VOLUME] BY AUTOMATED COUNT 88.2 fL 80.0 - 100.0 07/19 Specimen Type: BLOOD No comment entered. Ordering Provider: KAYLA GOLDEN Report Released Date/Time: Jul 18, 2024 10:24 PM Reporting Lab: [facility] [address] Performing Lab: [facility] [address] [facility] CBC MCH [ENTITIC MASS] BY AUTOMATED COUNT 30.6 pg 27.0 - 33.0 07/19 Specimen Type: BLOOD No comment entered. Ordering Provider: KAYLA GOLDEN Report Released Date/Time: Jul 18, 2024 10:24 PM Reporting Lab: [facility] [address] Performing Lab: [facility] [address] [facility] CBC MCHC [MASS/VOLUM E] BY AUTOMATED COUNT 34.7 g/dL 32.0 - 37.5 07/19 Specimen Type: BLOOD No comment entered. Ordering Provider: KAYLA GOLDEN Report Released Date/Time: Jul 18, 2024 10:24 PM Reporting Lab: [facility] [address] Performing Lab: [facility] [address] [facility] CBC PLATELETS [#/VOLUME] IN BLOOD BY AUTOMATED COUNT 456 150 - 400 07/19 H Specimen Type: BLOOD No comment entered. Ordering Provider: KAYLA GOLDEN Report Released Date/Time: Jul 18, 2024 10:24 PM Reporting Lab: [facility] [address] Performing Lab: [facility] [address] [facility] CBC PLATELET MEAN VOLUME [ENTITIC VOLUME] IN BLOOD BY AUTOMATED COUNT 10.8 fL 9.1 - 13.0 07/19 Specimen Type: BLOOD No comment entered. Ordering Provider: KAYLA GOLDEN Report Released Date/Time: Jul 18, 2024 10:24 PM Reporting Lab: [facility] [address] Performing Lab: [facility] [address] [facility] CBC ERYTHROCYTE DISTRIBUTIO N WIDTH [RATIO] BY AUTOMATED COUNT 13.7 11.5 - 14.5 07/19 Specimen Type: BLOOD No comment entered. Ordering Provider: KAYLA GOLDEN Report Released Date/Time: Jul 18, 2024 10:24 PM Reporting Lab: [facility] [address] Performing Lab: [facility] [address] [facility] PHOSPHORU S PHOSPHATE [MASS/VOLUM E] IN SERUM OR PLASMA 2.9 mg/dL 2.3 - 4.3 07/17 Specimen Type: PLASMA No comment entered. Ordering Provider: KAYLA GOLDEN Report Released Date/Time: Jul 17, 2024 01:54 PM Reporting Lab: [facility] [id number] Performing Lab: [facility] [id number] [facility] Vital Signs Combined list of inpatient and outpatient Vital Signs from Department of Defense and Veterans Affairs, ranging from 12 months to all on record, depending upon the facility. Vital Sign Value Date Comments Source PAIN 7 07/21/2024 00:10:06 [facility] PAIN 7 07/20/2024 05:31:18 [facility] PAIN 6 07/19/2024 05:18:03 [facility] PAIN 9 07/18/2024 23:21:07 [facility] PAIN 7 07/17/2024 07:09:09 [facility] Encounters Combined list of: 1) Encounters from Department of Veterans Affairs facilities going back up to thelast 18 months. 2) Encounters from the Department of Defense facilities going back up to 280 months. 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<b r/> JATINDER BENITEZ 05/06 [place] [facility] [place] [facility] Outpatient Encounter [id number] 05/14 [place] [facility] [place] [facility] Outpatient Encounter [id number] 06/30 [place] [facility] [place] [facility] BREATHING CAPACITY TEST [id number] [id number] Diagnos is: ICD-10- CM Z72.0 Tobacco use<br/ > PRANEETH FIERRO 06/30 [facility] [place] [facility] Outpatient Encounter [id number] 08/12 [place] [facility] [place] [facility] Outpatient Encounter [id number] 08/15 [place] [facility] [place] [facility] Outpatient Encounter [id number] 09/19 [place] [facility] [place] [facility] Outpatient Encounter [id number] 09/20 [facility] [place] [facility] MOD SED SAME PHYS/QHP 5/>YRS [id number] [id number] Diagnos is: ICD-10- CM K63.89 Other specifi ed disease s of intesti ne
KASEY ZAIDI 09/21 [facility] [place] [facility] Outpatient Encounter [id number] [id number] 09/21 [place] [facility] [place] [facility] Outpatient Encounter [id number] EMRE TAM 09/26 [place] [facility] [place] [facility] OFFICE O/P NEW MOD 45 MIN [id number] [id number] Diagnos is: ICD-10- CM K59.00 Constip ation, unspeci fied
TANK PUGH W 10/05 [facility] TYMPANOMET RY 00414-2.61 [id number] Diagnos is: ICD-10- CM Z01.118 Encntr for exam of ears and hearing w oth abnorma l finding s
CAROLYN NIELSON 11/28 [facility] Outpatient Encounter [id number] JATINDER BENITEZ 12/14 [facility] CONFORMITY EVALUATION [id number] Diagnos is: ICD-10- CM H90.3 Sensori neural hearing loss, bilater al
CAROLYN NIELSON 12/28 [facility] Outpatient Encounter [id number] 01/23 [facility] Outpatient Encounter [id number] JATINDER BENITEZ 01/24 [facility] Outpatient Encounter [id number] [id number] 01/29 [facility] OFFICE O/P EST MOD 30 MIN [id number] [id number] Diagnos is: ICD-10- CM I25.10 Athscl heart disease of [place] coronar y artery w/o ang pctrs<b r/> JATINDER BENITEZ 01/29 [facility] Outpatient Encounter [id number] SADE MC 04/21 [facility] EMERGENCY DEPT VISIT LOW MDM 65218-4.61 [id number] Diagnos is: ICD-10- CM N32.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
KRISTY,CAMMY AN A 04/21 [facility] Outpatient Encounter [id number] SYSTEM,CIS -ARK 04/23 [facility] Outpatient Encounter [id number] MARIS ARAMBULA RA 04/23 [facility] Outpatient Encounter [id number] EDILSON ZAZUETA 04/23 [facility] Outpatient Encounter [id number] 04/23 [facility] Drainage of Peritoneal Cavity with Drain Dev, Perc Approach [id number] Admit Reason: DIVERTI CULITIS ABSC W/FIST< br/> NURIA GO 04/23 [facility] Inpatient Encounter [id number] [id number] 04/23 [facility] Inpatient Encounter [id number] 04/23 [facility] Inpatient Encounter [id number] 04/23 [facility] IP/OBS CNSLTJ NEW/EST LOW 45 [id number] Diagnos is: ICD-10- CM K57.20 Dvtrcli of lg int w perfora tion and abscess w/o bleedin g
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, second degree< br/> YULY COOLEY RMA B 04/23 [facility] Inpatient Encounter [id number] [id number] SYSTEMCIS -ARK 04/24 [facility] Inpatient Encounter [id number] [id number] 04/24 [facility] Inpatient Encounter [id number] [id number] SIMCA LAWTON GISTU A 04/24 [facility] INJ PERFLUTREN LIP MICROS,ML [id number] [id number] Diagnos is: ICD-10- CM R94.31 Abnorma l electro cardiog brandi [ECG] [EKG]<b r/> LATIAMARYCA Lovelace GISTU A 04/24 [facility] Inpatient Encounter [id number] 04/24 [facility] IP/OBS CONSLTJ NEW/EST SF 35 [id number] [id number] Diagnos is: ICD-10- CM K57.20 Dvtrcli of lg int w perfora tion and abscess w/o bleedin g
MARYBETH POWELL 04/24 [facility] Inpatient Encounter [id number] [id number] 04/24 [facility] Inpatient Encounter [id number] [id number] 04/24 [facility] Inpatient Encounter [id number] [id number] 04/24 [facility] Inpatient Encounter [id number] [id number] SYSTEM,CIS -ARK 04/25 [place] [facility] [place] [facility] Inpatient Encounter [id number] [id number] 04/25 [place] [facility] [place] [facility] Inpatient Encounter [id number] [id number] MCKAY TOBIN 04/25 [place] [facility] [place] [facility]OS[facility] IP/OBS SF/LOW 25 [id number] [id number] Diagnos is: ICD-10- CM K57.20 Dvtrcli of lg int w perfora tion and abscess w/o bleedin g
MARYBETH POWELL 04/25 [facility] [place] [facility] Inpatient Encounter [id number] [id number] 04/25 [facility] [place] [facility] Inpatient Encounter [id number] [id number] 04/25 [place] [facility] [place] [facility] Inpatient Encounter [id number] [id number] 04/25 [facility] [place] [facility] Inpatient Encounter [id number] [id number] SYSTEM,CIS -ARK 04/26 [place] [facility] [place] [facility] Inpatient Encounter [id number] [id number] 04/26 [place] [facility] [place] [facility] Inpatient Encounter [id number] [id number] 04/26 [facility] [place] [facility] Inpatient Encounter [id number] [id number] 04/26 [place] [facility] [place] [facility] Outpatient Encounter [id number] [id number] 04/26 [facility] [place] [facility] Outpatient Encounter [id number] [id number] BRANDY GREWAL 04/29 [facility] [place] [facility] Outpatient Encounter [id number] [id number] 05/01 [facility] [place] [facility] OFFICE O/P EST LOW 20 MIN [id number] [id number] Diagnos is: ICD-10- CM K57.20 Dvtrcli of lg int w perfora tion and abscess w/o bleedin g
MARYBETH POWELL 05/02 [facility] Outpatient Encounter [id number] [id number] 05/03 [facility] Outpatient Encounter [id number] [id number] MARILEE PEPE 05/03 [facility] Outpatient Encounter [id number] [id number] 05/04 [facility] OFF/OP EST MAY X REQ PHY/QHP [id number] [id number] Diagnos is: ICD-10- CM R03.0 Elevate d blood-p ressure reading , w/o diagnos is of htn<br/ > DIONNE AGUILA 05/07 [facility] Outpatient Encounter [id number] [id number] 05/07 [facility] OFFICE O/P EST LOW 20 MIN [id number] [id number] Diagnos is: ICD-10- CM K57.20 Dvtrcli of lg int w perfora tion and abscess w/o bleedin g
MARYBETH POWELL 05/09 [facility] OFFICE O/P EST MOD 30 MIN [id number] [id number] Diagnos is: ICD-10- CM I10 Essenti al (primar y) hyperte nsion<b r/> GOLDIE BENITEZCED Onofre 05/15 [facility] OFFICE O/P EST LOW 20 MIN [id number] [id number] Diagnos is: ICD-10- CM K57.20 Dvtrcli of lg int w perfora tion and abscess w/o bleedin g
MARYBETH POWELL 05/16 [place] [facility] Outpatient Encounter [id number] [id number] 05/21 [facility] OFFICE O/P EST LOW 20 MIN [id number] [id number] Diagnos is: ICD-10- CM K57.20 Dvtrcli of lg int w perfora tion and abscess w/o bleedin g
MARYBETH POWELL 05/28 [facility] Outpatient Encounter [id number] [id number] 05/28 [facility] PRO PHONE CALL 5-10 MIN 59048-6.61 [id number] Diagnos is: ICD-10- CM Z71.89 Other specifi ed recreation counselor ing<br/ > KASEY FABIAN RAMO G 05/28 [facility] MTMS BY PHARM EST 15 MIN [id number] [id number] Diagnos is: ICD-10- CM I10 Essenti al (primar y) hyperte nsion<b r/> Alex NG 06/04 [facility] Outpatient Encounter [id number] [id number] 06/08 [facility] OFF/OP EST MAY X REQ PHY/QHP 91941-7.61 [id number] Diagnos is: ICD-10- CM N32.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
ROHIT FINK 06/08 [facility] ELECTROCAR DIOGRAM REPORT [id number] [id number] Diagnos is: ICD-10- CM Z13.6 Encount er for screeni ng for cardiov ascular disorde rs
YASIRYULY RMA B 06/08 [facility] OFFICE O/P EST HI 40 MIN [id number] [id number] Diagnos is: ICD-10- CM Z01.818 Encount er for other preproc edural examina tion
LILIAM POWELL 06/08 [facility] HC PRO PHONE CALL 5-10 MIN [id number] [id number] Diagnos is: ICD-10- CM Z71.89 Other specifi ed recreation counselor ing<br/ > FABIAN,AN RAMO G 06/13 [facility] Outpatient Encounter [id number] [id number] 06/19 [facility] HC PRO PHONE CALL 5-10 MIN [id number] [id number] Diagnos is: ICD-10- CM Z71.89 Other specifi ed recreation counselor ing<br/ > FABIAN,AN RAMO G 06/20 [facility] Outpatient Encounter [id number] [id number] SYSTEMCIS -ARK 06/21 [facility] Outpatient Encounter [id number] [id number] AL CANELA 06/21 [facility] [place] MDM 14009-5.61 [id number] Diagnos is: ICD-10- CM K57.20 Dvtrcli of lg int w perfora tion and abscess w/o bleedin g
TAQUERIA MARTINEZ UR R 06/21 [facility] Drainage of Peritoneal Cavity with Drain Dev, Perc Approach 65848-9.61 [id number] Admit Reason: COMPLIC ATED DIVERTI CULITIS
MEGALY,POLY HAMAZIN G 06/21 [place] [facility] [place] [facility] Inpatient Encounter [id number] [id number] SYSTEM,CIS -ARK 06/21 [place] [facility] [place] [facility] Inpatient Encounter [id number] [id number] Manish CHACKO 06/21 [place] [facility] [place] [facility] Inpatient Encounter [id number] [id number] SYSTEM,CIS -ARK 06/22 [place] [facility] [place] [facility] Inpatient Encounter [id number] [id number] Manish CHACKO 06/22 [facility] [place] [facility] Inpatient Encounter [id number] [id number] 06/22 [facility] [place] [facility] Inpatient Encounter [id number] [id number] BEBETO QUINTERO 06/22 [facility] IP/OBS CNSLTJ NEW/EST MOD 60 78733-7.61 [id number] Diagnos is: ICD-10- CM I50.22 Chronic systoli c (conges tive) heart failure
MARY ZAZUETA 06/22 [facility] [place] [facility] Inpatient Encounter [id number] [id number] DEJA BADILLO 06/22 [facility] [place] [facility] Inpatient Encounter [id number] [id number] JANET CHOWDHURY 06/22 [place] [facility] [place] [facility] Inpatient Encounter [id number] [id number] SYSTEM,CIS -ARK 06/23 [facility] [place] [facility] SBSQ HOSP IP/OBS SF/LOW 25 09089-3.61 [id number] Diagnos is: ICD-10- CM K57.90 Dvrtclo s of intest, part unsp, w/o perf or abscess w/o bleed<b r/> WENCESLAO ARREDONDO 06/23 [facility] [place] [facility] Inpatient Encounter [id number] [id number] ZACKARY JOSE R 06/23 [facility] [place] [facility] Inpatient Encounter [id number] [id number] WENCESLAO ARREDONDO G 06/23 [facility] [place] [facility] Inpatient Encounter [id number] [id number] Kofi PEMBERTON 06/23 [facility] [place] [facility] Inpatient Encounter 51353-6.61 [id number] RADHA JONES 06/24 [facility] [place] [facility] Inpatient Encounter [id number] [id number] SYSTEM,CIS -ARK 06/24 [facility] [place] [facility] Inpatient Encounter [id number] [id number] Rita PERSON A 06/24 [facility] [place] [facility] Inpatient Encounter [id number] [id number] TANK PORTER S 06/24 [facility] [place] [facility] Inpatient Encounter [id number] [id number] RADHA GRAVES A 06/24 [facility] [place] [facility] Inpatient Encounter [id number] [id number] SYSTEM,CIS -ARK 06/25 [facility] [place] [facility] Inpatient Encounter [id number] [id number] MCKAY TOBIN 06/25 [place] [facility] [place] [facility] Inpatient Encounter [id number] [id number] RADHA WEST E 06/25 [place] [facility] [place] [facility] Inpatient Encounter [id number] [id number] CASSANDRAGRAZYNAAlex Hammond L 06/25 [place] [facility] [place] [facility] Outpatient Encounter [id number] [id number] 06/25 [place] [facility] [place] [facility] Outpatient Encounter [id number] [id number] 06/25 [place] [facility] [place] [facility] Outpatient Encounter [id number] [id number] 06/28 [place] [facility] [place] [facility] Outpatient Encounter [id number] [id number] 06/30 [place] [facility] [place] [facility] Outpatient Encounter [id number] [id number] 07/02 [place] [facility] [place] [facility] Outpatient Encounter [id number] [id number] 07/03 [place] [facility] [place] [facility] Outpatient Encounter [id number] [id number] PETERSON,[facility] HILLCHRISTOPHER 07/03 [place] [facility] [place] [facility] Inpatient Encounter [id number] [id number] Admit Reason: DIVERTI CULITIS
WENCESLAO ARREDONDO 07/03 [facility] [place] [facility] Inpatient Encounter [id number] [id number] Admit Reason: DIVERTI CULITIS
WENCESLAO ARREDONDO 07/03 [facility] [place] [facility] CYSTOSCOPY AND TREATMENT [id number] [id number] Admit Reason: DIVERTI CULITIS
WENCESLAO ARREDONDO 07/03 [facility] [place] [facility] Inpatient Encounter [id number] [id number] WENCESLAO ARREDONDO 07/03 [facility] [place] [facility] WAREHOUSE ORDER PULLER FRIEND OF THE COURT INDIVIDU 39973-3.61 [id number] Diagnos is: ICD-10- CM Z71.81 Spiritu al or religio us recreation counselor ing<br/ > My HELTON P 07/03 [facility] [place] [facility] Inpatient Encounter [id number] [id number] BRIDGER WYMAN 07/03 [facility] [place] [facility] Inpatient Encounter [id number] [id number] WENCESLAO ARREDONDO 07/03 [facility] [place] [facility] Inpatient Encounter [id number] [id number] FIORELLA SALES PP 07/03 [facility] [place] [facility] Inpatient Encounter [id number] [id number] SYSTEM,CIS -ARK 07/03 [facility] [place] [facility] OFFICE O/P NEW MOD 45 MIN [id number] [id number] Diagnos is: ICD-10- CM Z01.818 Encount er for other preproc edural examina tion
RAYMUNDO CARBONE 07/03 [facility] [place] [facility] Inpatient Encounter [id number] [id number] WENCESLAO ARREDONDO 07/03 [facility] [place] [facility] Inpatient Encounter [id number] [id number] SYSTEM,CIS -ARK 07/03 [facility] [place] [facility] Inpatient Encounter [id number] [id number] ARNULFOWENCESLAO G 07/03 [facility] Inpatient Encounter [id number] [id number] WENCESLAO ARREDONDO 07/03 [place] [facility] Inpatient Encounter [id number] [id number] SYSTEM,CIS -ARK 07/04 [facility] Inpatient Encounter [id number] Manish PINTO 07/04 [facility] Inpatient Encounter [id number] ARNULFOWENCESLAO G 07/04 [facility] OFF/OP EST MAY X REQ PHY/QHP [id number] [id number] Diagnos is: ICD-10- CM Z51.89 Encount er for other specifi ed afterca re
EDUARDO ALEJO 07/04 [facility] POSTOP FOLLOW-UP VISIT [id number] [id number] Diagnos is: ICD-10- CM K57.90 Dvrtclo s of intest, part unsp, w/o perf or abscess w/o bleed<b r/> WENCESLAO ARREDONDO 07/04 [facility] Inpatient Encounter [id number] [id number] JULIOCESAR COREAS ECCA L 07/04 [facility] Inpatient Encounter [id number] [id number] SYSTEM,CIS -ARK 07/05 [facility] Inpatient Encounter [id number] [id number] Manish PINTO 07/05 [facility] OT EVAL LOW COMPLEX 30 MIN 03039-2.61 [id number] Diagnos is: ICD-10- CM Z73.6 Limitat ion of activit ies due to disabil ity<br/ > SEFERINO KEYES 07/05 [place] [facility] [place] [facility] Inpatient Encounter [id number] [id number] MARYBETH POWELL 07/05 [facility] PT EVAL LOW COMPLEX 20 MIN 91520-4.61 [id number] Diagnos is: ICD-10- CM Z74.09 Other reduced mobilit y
NIKOLAY BAILEY 07/05 [facility] SBSQ HOSP IP/OBS MODERATE 35 [id number] [id number] Diagnos is: ICD-10- CM I50.22 Chronic systoli c (conges tive) heart failure
MARY ZAZUETA 07/05 [facility] [place] [facility] Inpatient Encounter [id number] [id number] MARTI LEE 07/05 [facility] [place] [facility] Inpatient Encounter [id number] [id number] CHAPO VALENZUELA 07/05 [facility] [place] [facility] Inpatient Encounter [id number] DUDLEY WINKLER -CARLOSK 07/06 [facility] [place] [facility] Inpatient Encounter [id number] ROSSY TAM A 07[facility]06 [facility] POSTOP FOLLOW-UP VISIT [id number] Diagnos is: ICD-10- CM K57.90 Dvrtclo s of intest, part unsp, w/o perf or abscess w/o bleed<b r/> WENCESLAO ARREDONDO 07/06 [facility] SBSQ HOSP IP/OBS MODERATE 35 [id number] Diagnos is: ICD-10- CM R00.1 Bradyca rdia, unspeci fied
MARY ZAZUETA 07/06 [facility] Inpatient Encounter [id number] Radu BRASHER 07/06 [facility] Inpatient Encounter [id number] SYSTEM,CIS -ARK 07/07 [facility] Inpatient Encounter [id number] Manish PINTO 07/07 [facility] Inpatient Encounter [id number] ZACKARY JOSE 07/07 [facility] Inpatient Encounter [id number] WENCESLAO ARREDONDO 07/07 [facility] Inpatient Encounter [id number] Manish PINTO 07/07 [facility] Inpatient Encounter [id number] SYSTEM,CIS -ARK 07/08 [facility] Inpatient Encounter [id number] Rita PERSON 07/08 [facility] Inpatient Encounter [id number] Radu BRASHER IC[place]IS G 07/08 [place] [facility] [place] [facility] Inpatient Encounter [id number] PINTOManish 07/08 [place] [place] [facility] Inpatient Encounter [id number] SYSTEM,CIS -ARK 07/09 [place] [facility] [place] [facility] Inpatient Encounter [id number] KATLYN RAYGOZA G 07/09 [place] [facility] [place] [facility] Inpatient Encounter [id number] Radu BRASHER IC[place] G 07/09 [place] [facility] [place] [facility] Inpatient Encounter [id number] RUDDY RAMÍREZ 07/09 [place] [facility] [place] [facility] Inpatient Encounter [id number] RADHA JONES 07/10 [place] [facility] [place] [facility] Inpatient Encounter [id number] SYSTEM,CIS -[facility] 07/10 [place] [facility] [place] [facility] Inpatient Encounter [id number] NAIMA AN 07/10 [place] [facility] [place] [facility] Inpatient Encounter [id number] 07/10 [place] [facility] [place] [facility] Outpatient Encounter [id number] 07/10 [place] [facility] [place] [facility] Inpatient Encounter [id number] 07/10 [place] [facility] [place] [facility] Outpatient Encounter [id number] 07/10 [place] [facility] [place] [facility] Outpatient Encounter [id number] 07/10 [place] [facility] [place] [facility] Outpatient Encounter [id number] 07/11 [place] [facility] [place] [facility] Out[facility] Encounter [id number] 07/13 [place] [facility] [place] [facility] Outpatient Encounter [id number] [place] 07/13 [place] [facility] [place] [facility] Outpatient Encounter [id number] SYSTEM,[facility] -[facility] 07/16 [place] [facility] [place] [facility] Inpatient Encounter [id number] 07/16 [place] [facility] [place] [facility] Inpatient Encounter [id number] [place] 07/16 [place] [facility] [place] [facility] Outpatient Encounter [id number] 07/16 [place] [facility] [place] [facility] Inpatient Encounter [id number] Admit Reason: C-DIFF, HYPOTEN ALESSIA
TEAM,MED THREE [facility] [place] [facility] Inpatient Encounter [id number] 07/16 [place] [facility] [place] [facility] Inpatient Encounter [id number] 07/16 [facility] [place] [facility] QNHP OL DIG ASSMT&MGMT 11-20 [id number] Diagnos is: ICD-10- CM Z79.2 dye blender (curren t) use of antibio tics
VERONICA DAY 07/16 [facility] POSTOP FOLLOW-UP VISIT [id number] Diagnos is: ICD-10- CM K57.90 Dvrtclo s of intest, part unsp, w/o perf or abscess w/o bleed<b r/> CAMELIA WYLIE 07/16 [facility] Inpatient Encounter [id number] 07/16 [facility] Inpatient Encounter [id number] 07/16 [facility] Inpatient Encounter [id number] SYSTEM,[facility] -[facility] 07/17 [facility] Inpatient Encounter [id number] 07/17 [facility] POSTOP FOLLOW-UP VISIT [id number] Diagnos is: ICD-10- CM K57.90 Dvrtclo s of intest, part unsp, w/o perf or abscess w/o bleed<b r/> WENCESLAO ARREDONDO 07/17 [facility] Inpatient Encounter [id number] 07/17 [facility] Inpatient Encounter [id number] 07/17 [facility] Inpatient Encounter [id number] 07/17 [facility] Inpatient Encounter [id number] SYSTEM,C[facility] -[facility] 07/18 [facility] Inpatient Encounter [id number] 07/18 [facility] WAREHOUSE ORDER PULLER FRIEND OF THE COURT INDIVIDU [id number] Diagnos is: ICD-10- CM Z71.81 Spiritu al or religio us recreation counselor ing<br/ > FELIX ZAZUETA 07/18 [facility] POSTOP FOLLOW-UP VISIT [id number] Diagnos is: ICD-10- CM K57.90 Dvrtclo s of intest, part unsp, w/o perf or abscess w/o bleed<b r/> WENCESLAO ARREDONDO 07/18 [facility] Inpatient Encounter [id number] 07/18 [facility] Inpatient Encounter [id number] 07/18 [facility] Inpatient Encounter [id number] 07/18 [facility] Inpatient Encounter [id number] SYSTEM,C[facility] -[facility] 07/19 [facility] POSTOP FOLLOW-UP VISIT [id number] Diagnos is: ICD-10- CM K57.20 Dvtrcli of lg int w perfora tion and abscess w/o bleedin g
WENCESLAO ARREDONDO 07/19 [facility] Inpatient Encounter [id number] 07/19 [facility] [place] [facility] Inpatient Encounter [id number] 07/19 [place] [facility] [place] [facility] Inpatient Encounter [id number] 07/19 [place] [facility] [place] [facility] Inpatient Encounter [id number] SYSTEM,CIS -ARK 07/20 [place] [facility] [place] [facility] POSTOP FOLLOW-UP VISIT [id number] Diagnos is: ICD-10- CM K57.90 Dvrtclo s of intest, part unsp, w/o perf or abscess w/o bleed<b r/> WENCESLAO ARREDONDO 07/20 [place] [facility] [place] [facility] Inpatient Encounter [id number] 07/20 [facility] [place] [facility] Inpatient Encounter [id number] 07/20 [facility] [place] [facility] Inpatient Encounter [id number] 07/20 [facility] [place] [facility] Inpatient Encounter [id number] SYSTEM,[facility] -[facility] 07/21 [facility] [place] [facility] Inpatient Encounter [id number] 07/21 [place] [facility] [place] [facility] Inpatient Encounter [id number] 07/21 [facility] [place] [facility] Outpatient Encounter [id number] 07/21 [facility] [place] [facility] Inpatient Encounter [id number] 07/21 [place] [facility] [place] [facility] Outpatient Encounter [id number] 07/30 [place] [facility] [place] [facility] Outpatient Encounter [id number] 07/30 [place] [facility] [place] [facility] Outpatient Encounter [id number] 08/01 [place] [facility] Procedures Combined list of: 1) Procedures from [facility] of Veterans Affairs facilities going back up to thelast 18 months, not all [place] non-surgical procedures are included; 2) All procedures from the Department of Defense facilities. Procedure Procedure Type Code Date Perfomer Comments Sourc e Cystoscopy, Bilateral Ureteral Stent Placement CYSTOSCOPY AND TREATMENT [id number] 07/03/20 24 [employer] Procedure CPT Code(s): GR-SERVICE BY [place] RESIDENT, LT-LEFT SIDE [facility] laproscopic converted to open sigmoid colectomy, splenic flexure mobilization, diverting loop ileostomy, flexable sigmoidoscopy L COLECTOMY/COLO PROCTOSTOMY [id number] 07/03/20 24 Alex ARREDONDO GR[facility] [facility] Social History Combined list of available smoking, tobacco, and other social history from Department of Defense and Veterans Affairs facilities. Social History Type Response Date Comment Sourc e Tobacco smoking status NHIS [place]-TOBACCO FORMER USER 05/15/2024 [facility] History of tobacco use [place] QUIT 1 5 YRS OR MORE 05/15/2024 [facility] History of tobacco use [place] FOR[place] US[place] 05/06/2023 [facility] History of tobacco use [place] FOR[place] US[place] 06/04/2022 [facility] History of tobacco use [place] FOR[place] US[place] 07/10/2021 [facility] History of tobacco use [place] FOR[place] US[place] 05/23/2020 [facility] History of tobacco use [place] QUIT 5 TO < 15 YRS 03/20/2019 [facility] History of tobacco use FORMER TOBACCO US ER 7Y OR GREATER 03/21/2018 [facility] History of tobacco use FORMER TOBACCO US ER 7Y OR GREATER 02/24/2017 [facility] History of tobacco use FORMER TOBACCO US E >1Y <7Y 01/07/2016 [facility] History of tobacco use FORMER TOBACCO USE <1Y 02/03/2015 [facility] History of tobacco use CURRENT TOBACCO USER 02/26/2014 [facility] History of tobacco use CURRENT TOBACCO USER 05/13/2011 [facility] Plan of Care List of future care activities from [facility] facilities. Additional future care activities may be listed in the Assessment and Plan section. Date/Time Care Activity Care Activity Detail Facili ty 06/21/2024 Laboratory - Blood B ank Order TYPE and SCREEN - LAB BLOOD [facility] 07/03/2024 Laboratory - Blood B ank Order TYPE and SCREEN - LAB BLOOD [facility] 07/16/2024 Laboratory - Chemistry Order CBC BLOOD SP ONCE [facility] 07/17/2024 Laboratory - Chemistry Order BAS IC METABOLIC PANEL+MG PLASMA SP ONCE [facility] Advance Directives List of completed, amended, or rescinded Advance Directives on record at [facility] facilities. An actual copy of the Directive is not included. Date Advance Directive Provider Source 03/23/2016 CLINICAL WARNING [facility]
[2024-08-01] MEDS: 0.9 % SODIUM CHLORIDE 500 ML 500 ML IV ×2 (07:30→08:11)
--- OUTSIDE RECORDS SUMMARY | 2024-08-01 07:30 | XMS_ITS | Encounter Summary ---
Author Name [facility] [place] [facility] [facility] [place] Address [address] [place] [address] Care Team Providers Care Contact Assembler Name Role Phone JATINDER CABRERA Primary Care [...] PART A Sep 29, 2016 PART A [id number] [phone] JUDY WEAVER PATIENT Selected Encounter This section [...] Appointment Type Appointme nt Facility Name Jul 16, 2024 08:40 AM AMBULATORY - NONE [facility] Jul 16, 2024 11:30 AM AMBULATORY - NONE [facility] Active, Pending, and Scheduled [...] - Unit Interpretation Reference Range Comment Jul 21, 2024 10:38 AM [facility] BASIC METABOLIC PANEL+MG Specimen Type: PLASMA No comment entered. Ordering Provider: SARAI GOLDEN Report Released Date/Time: Jul 20, 2024 06:50 PM Reporting Lab: [facility] [address] Performing Lab: [facility] [address] CREATININE 0.8 mg/dL 0.7-1.2 UREA NITROGEN 31 mg/dL H 8-26 GLUCOSE 120 mg/dL H 70-100 SODIUM 125 mmol/L L 136-145 POTASSIUM 4.4 mmol/L 3.5-5.1 CHLORIDE 100 mmol/L 98-107 CO2 17 mmol/L L 22-29 CALCIUM 9.6 mg/dL 8.4-10.2 MAGNESIUM 1.9 mg/dL 1.6-2.6 ANION GAP 8 mmol/L 5-15 .CREAT EGFR(CKD-EPI) >90 >60 Jul 21, 2024 10:38 AM [facility] CBC Specimen Type: BLOOD No comment entered. Ordering Provider: SARAI GOLDEN Report Released Date/Time: Jul 20, 2024 06:50 PM Reporting Lab: [facility] [address] Performing Lab: [facility] [address] WBC 16.0 H 4.0-11.0 RBC 5.16 4.60-6.20 HGB 15.8 g/dL 13.5-17.9 HCT 45.5 41.0-54.0 MCV 88.2 fL 80.0-100.0 MCH 30.6 pg 27.0-33.0 MCHC 34.7 g/dL 32.0-37.5 PLT 428 H 150-400 MPV 10.8 fL 9.1-13.0 RDW 13.6 11.5-14.5 Jul 20, 2024 01:00 PM [facility] SODIUM,URINE RANDOM Specimen Type: URINE No comment entered. Ordering Provider: SARAI GOLDEN Report Released Date/Time: Jul 20, 2024 08:22 AM Reporting Lab: [facility] [phone] Performing Lab: [facility] [address] SODIUM,URINE RANDOM <20 mmol/L Jul 20, 2024 01:00 PM [facility] OSMOLALITY,URINE Specimen Type: URINE No comment entered. Ordering Provider: SARAI GOLDEN Report Released Date/Time: Jul 20, 2024 08:22 AM Reporting Lab: [facility] [address] Performing Lab: [facility] [address] OSMOLALITY,URIN E 648 mosm/kg 500-800 Jul 20, 2024 06:45 AM [facility] BASIC METABOLIC PANEL+MG Specimen Type: PLASMA No comment entered. Ordering Provider: SARAI GOLDEN Report Released Date/Time: Jul 19, 2024 06:13 PM Reporting Lab: [facility] [address] Performing Lab: [facility] [address] CREATININE 0.8 mg/dL 0.7-1.2 UREA NITROGEN 36 mg/dL H 8-26 GLUCOSE 111 mg/dL H 70-100 SODIUM 121 mmol/L L 136-145 POTASSIUM 4.1 mmol/L 3.5-5.1 CHLORIDE 99 mmol/L 98-107 CO2 14 mmol/L L 22-29 CALCIUM 9.5 mg/dL 8.4-10.2 MAGNESIUM 1.8 mg/dL 1.6-2.6 ANION GAP 8 mmol/L 5-15 .CREAT EGFR(CKD-EPI) >90 >60 Jul 20, 2024 06:43 AM [facility] CBC & DIFF Specimen Type: BLOOD Comment: Automated Differential Performed Ordering Provider: SARAI GOLDEN Report Released Date/Time: Jul 19, 2024 06:13 PM Reporting Lab: [facility] [address] Performing Lab: [facility] [address] WBC 16.6 H 4.0-11.0 RBC 4.96 4.60-6.20 HGB 15.1 g/dL 13.5-17.9 HCT 43.7 41.0-54.0 MCV 88.1 fL 80.0-100.0 MCH 30.4 pg 27.0-33.0 MCHC 34.6 g/dL 32.0-37.5 PLT 431 H 150-400 MPV 10.8 fL 9.1-13.0 NEUT 80.5 H 40.0-80.0 LYMPHS 9.2 L 15.0-45.0 MONO 8.6 2.0-12.0 EOSINO 0.6 0.0-6.0 BASO 0.1 0.0-2.0 RDW 13.8 11.5-14.5 ABS LYMPH 1.5 1.0-4.0 ABS MONO 1.4 H 0.1-1.0 ABS NEUT 13.3 H 2.0-7.7 ABS EOS 0.1 0.0-0.5 ABS BASO 0.0 0.0-0.2 IG(META,MYELO,P RO) 1.0 ABS IMMATURE GRAN 0.2 H 0.0-0.1 Jul 20, 2024 05:30 AM [facility] OSMOLALITY,SERUM Specimen Type: SERUM No comment entered. Ordering Provider: SARAI GOLDEN Report Released Date/Time: Jul 20, 2024 09:47 AM Reporting Lab: [facility] [address] Performing Lab: [facility] [address] OSMOLALITY,SERU M 266 mosm/kg L 276-305 Jul 19, 2024 08:57 AM [facility] BASIC METABOLIC PANEL+MG Specimen Type: PLASMA No comment entered. Ordering Provider: SARAI GOLDEN Report Released Date/Time: Jul 18, 2024 10:24 PM Reporting Lab: [facility] [address] Performing Lab: [facility] [address] CREATININE 1.0 mg/dL 0.7-1.2 UREA NITROGEN 40 mg/dL H 8-26 GLUCOSE 104 mg/dL H 70-100 SODIUM 129 mmol/L L 136-145 POTASSIUM 3.3 mmol/L L 3.5-5.1 CHLORIDE 104 mmol/L 98-107 CO2 16 mmol/L L 22-29 CALCIUM 8.0 mg/dL L 8.4-10.2 MAGNESIUM 1.7 mg/dL 1.6-2.6 ANION GAP 9 mmol/L 5-15 .CREAT EGFR(CKD-EPI) 80 >60 Jul 19, 2024 08:57 AM [facility] CBC Specimen Type: BLOOD No comment entered. Ordering Provider: SARAI GOLDEN Report Released Date/Time: Jul 18, 2024 10:24 PM Reporting Lab: [facility] [address] Performing Lab: [facility] [address] WBC 17.3 H 4.0-11.0 RBC 4.83 4.60-6.20 HGB 14.8 g/dL 13.5-17.9 HCT 42.6 41.0-54.0 MCV 88.2 fL 80.0-100.0 MCH 30.6 pg 27.0-33.0 MCHC 34.7 g/dL 32.0-37.5 PLT 456 H 150-400 MPV 10.8 fL 9.1-13.0 RDW 13.7 11.5-14.5 Jul 17, 2024 06:55 PM [facility] PHOSPHORUS Specimen Type: PLASMA No comment entered. Ordering Provider: SARAI GOLDEN Report Released Date/Time: Jul 17, 2024 01:54 PM Reporting Lab: [facility] [address] Performing Lab: [facility] [address] PHOSPHORUS 2.9 mg/dL 2.3-4.3 Jul 17, 2024 06:55 PM [facility] BASIC METABOLIC PANEL+MG Specimen Type: PLASMA No comment entered. Ordering Provider: SARAI GOLDEN Report Released Date/Time: Jul 17, 2024 01:54 PM Reporting Lab: [facility] [address] Performing Lab: [facility] [address] CREATININE 1.2 mg/dL 0.7-1.2 UREA NITROGEN 62 mg/dL H 8-26 GLUCOSE 116 mg/dL H 70-100 SODIUM 128 mmol/L L 136-145 POTASSIUM 3.8 mmol/L 3.5-5.1 CHLORIDE 100 mmol/L 98-107 CO2 16 mmol/L L 22-29 CALCIUM 9.3 mg/dL 8.4-10.2 MAGNESIUM 2.1 mg/dL 1.6-2.6 ANION GAP 12 mmol/L 5-15 .CREAT EGFR(CKD-EPI) 64 >60 Jul 17, 2024 07:00 AM [facility] CBC & DIFF Specimen Type: BLOOD Comment: Manual Differential Performed Ordering Provider: SARAI GOLDEN Report Released Date/Time: Jul 16, 2024 04:52 PM Reporting Lab: [facility] [address] Performing Lab: [facility] [address] WBC 18.9 H 4.0-11.0 RBC 5.55 4.60-6.20 HGB 17.0 g/dL 13.5-17.9 HCT 49.5 41.0-54.0 MCV 89.2 fL 80.0-100.0 MCH 30.6 pg 27.0-33.0 MCHC 34.3 g/dL 32.0-37.5 PLT 503 H 150-400 MPV 10.7 fL 9.1-13.0 NEUT 91.0 LYMPHS 4.0 MONO 5.0 EOSINO 0.0 BASO 0.0 NORMOCHROMIC YES POIKILOCYTOSIS SLIGHT RDW 13.8 11.5-14.5 OVALOCYTES SLIGHT ANASTASIYA CELLS SLIGHT ABS LYMPH 0.8 L 1.0-4.0 ABS MONO 0.9 0.1-1.0 ABS NEUT 17.2 H 2.0-7.7 ABS EOS 0.0 0.0-0.5 ABS BASO 0.0 0.0-0.2 .RBC MORPHOLOGY PRESENT Jul 17, 2024 07:00 AM [facility] ALBUMIN Specimen Type: PLASMA No comment entered. Ordering Provider: SARAI GOLDEN Report Released Date/Time: Jul 16, 2024 12:12 PM Reporting Lab: [facility] [address] Performing Lab: [facility] [address] ALBUMIN 4.3 g/dL 3.5-5.0 Jul 17, 2024 07:00 AM [facility] COMPREHENSIVE METABOLIC PANEL+MG Specimen Type: PLASMA No comment entered. Ordering Provider: SARAI GOLDEN Report Released Date/Time: Jul 16, 2024 04:52 PM Reporting Lab: [facility] [address] Performing Lab: [facility] [address] CREATININE 1.3 mg/dL H 0.7-1.2 UREA NITROGEN 70 mg/dL H 8-26 GLUCOSE 112 mg/dL H 70-100 SODIUM 128 mmol/L L 136-145 POTASSIUM 4.3 mmol/L 3.5-5.1 CHLORIDE 101 mmol/L 98-107 CO2 14 mmol/L L 22-29 CALCIUM 9.8 mg/dL 8.4-10.2 PROTEIN,TOTAL 7.7 g/dL 6.4-8.3 ALBUMIN 4.3 g/dL 3.5-5.0 BILIRUBIN, TOTAL 0.8 mg/dL 0.2-1.2 MAGNESIUM 2.3 mg/dL 1.6-2.6 ANION GAP 13 mmol/L 5-15 ALKALINE PHOSPHATASE 91 U/L 40-150 ALT/SGPT 31 U/L <44 AST/SGOT 22 U/L 11-34 .CREAT EGFR(CKD-EPI) 58 L >60 Jul 16, 2024 07:10 PM [facility] LACTIC ACID Specimen Type: PLASMA No comment entered. Ordering Provider: SARAI GOLDEN Report Released Date/Time: Jul 16, 2024 12:12 PM Reporting Lab: [facility] [address] Performing Lab: [facility] [address] LACTIC ACID 0.9 mmol/L 0.5-2.2 Jul 16, 2024 02:14 PM [facility] MRSA SURVL NARES DNA Specimen Type: NARES No comment entered. Ordering Provider: SARAI GOLDEN Report Released Date/Time: Jul 16, 2024 12:12 PM Reporting Lab: [facility] [address] Performing Lab: [facility] [address] MRSA SURVL NARES DNA NEGATIVE Negative Jul 16, 2024 02:10 PM [facility] LACTIC ACID Specimen Type: PLASMA No comment entered. Ordering Provider: SARAI GOLDEN Report Released Date/Time: Jul 16, 2024 12:12 PM Reporting Lab: [facility] [address] Performing Lab: [facility] [address] LACTIC ACID 0.9 mmol/L 0.5-2.2 Jul 16, 2024 02:08 PM [facility] COMPREHENSIVE METABOLIC PANEL+MG Specimen Type: PLASMA No comment entered. Ordering Provider: SARAI GOLDEN Report Released Date/Time: Jul 16, 2024 12:12 PM Reporting Lab: [facility] [address] Performing Lab: [facility] [address] CREATININE 2.0 mg/dL H 0.7-1.2 UREA NITROGEN 88 mg/dL H 8-26 GLUCOSE 97 mg/dL 70-100 SODIUM 128 mmol/L L 136-145 POTASSIUM 4.0 mmol/L 3.5-5.1 CHLORIDE 96 mmol/L L 98-107 CO2 18 mmol/L L 22-29 CALCIUM 9.7 mg/dL 8.4-10.2 PROTEIN,TOTAL 7.7 g/dL 6.4-8.3 ALBUMIN 4.3 g/dL 3.5-5.0 BILIRUBIN, TOTAL 0.7 mg/dL 0.2-1.2 MAGNESIUM 2.2 mg/dL 1.6-2.6 ANION GAP 14 mmol/L 5-15 ALKALINE PHOSPHATASE 86 U/L 40-150 ALT/SGPT 37 U/L <44 AST/SGOT 22 U/L 11-34 .CREAT EGFR(CKD-EPI) 35 L >60 Jul 16, 2024 02:08 PM [facility] CBC & DIFF Specimen Type: BLOOD Comment: Manual Differential Performed Ordering Provider: SARAI GOLDEN Report Released Date/Time: Jul 16, 2024 12:12 PM Reporting Lab: [facility] [address] Performing Lab: [facility] [address] WBC 19.7 H 4.0-11.0 RBC 5.39 4.60-6.20 HGB 16.3 g/dL 13.5-17.9 HCT 47.7 41.0-54.0 MCV 88.5 fL 80.0-100.0 MCH 30.2 pg 27.0-33.0 MCHC 34.2 g/dL 32.0-37.5 PLT 474 H 150-400 MPV 11.2 fL 9.1-13.0 NEUT 82.0 LYMPHS 7.5 MONO 10.0 EOSINO 0.5 BASO 0.0 NORMOCHROMIC YES RDW 13.9 11.5-14.5 ABS LYMPH 1.5 1.0-4.0 ABS MONO 2.0 H 0.1-1.0 ABS NEUT 16.2 H 2.0-7.7 ABS EOS 0.1 0.0-0.5 ABS BASO 0.0 0.0-0.2 .RBC MORPHOLOGY PRESENT Jul 10, 2024 07:16 AM [facility] PHOSPHORUS Specimen Type: PLASMA No comment entered. Ordering Provider: JUANCARLOS ECHOLS Report Released Date/Time: Jul 09, 2024 12:23 PM Reporting Lab: [facility] [address] Performing Lab: [facility] [address] PHOSPHORUS 3.0 mg/dL 2.3-4.3 Jul 10, 2024 07:16 AM [facility] BASIC METABOLIC PANEL+MG Specimen Type: PLASMA No comment entered. Ordering Provider: JUANCARLOS ECHOLS S Report Released Date/Time: Jul 09, 2024 12:23 PM Reporting Lab: [facility] [address] Performing Lab: [facility] [address] CREATININE 0.7 mg/dL 0.7-1.2 UREA NITROGEN 27 [...] 2024 12:23 PM Reporting Lab: [facility] [address] Performing Lab: [facility] [address] WBC 18.8 H 4.0-11.0 RBC 5.08 4.60-6.20 [...] 2024 06:18 PM Reporting Lab: [facility] [address] Performing Lab: [facility] [address] WBC 15.3 H 4.0-11.0 RBC 4.91 4.60-6.20 [...] 2024 08:41 AM Reporting Lab: [facility] [address] Performing Lab: [facility] [address] URINE COLOR YELLOW SPECIFIC GRAVITY >1.050 H [...] 2024 04:49 PM Reporting Lab: [facility] [address] Performing Lab: [facility] [address] WBC 17.5 H 4.0-11.0 RBC 4.88 4.60-6.20 [...] 2024 04:49 PM Reporting Lab: [facility] [address] Performing Lab: [facility] [address] PHOSPHORUS 2.6 mg/dL 2.3-4.3 Jul 08, 2024 09:54 AM [facility] BASIC METABOLIC PANEL+MG Specimen Type: PLASMA Comment: Specimen received in Lab at: [id number] Ordering Provider: JUANCARLOS ECHOLS S Report Released Date/Time: Jul 07, 2024 04:49 PM Reporting Lab: [facility] [address] Performing Lab: [facility] [address] CREATININE 0.9 mg/dL 0.7-1.2 UREA NITROGEN 26 [...] 2024 12:26 PM Reporting Lab: [facility] [address] Performing Lab: [facility] [address] C DIFF TOX B GENE PCR NEGATIVE Negative Jul 07, 2024 07:41 AM [facility] PHOSPHORUS Specimen Type: PLASMA No comment entered. Ordering Provider: JEVON ZAZUETA Report Released Date/Time: Jul 06, 2024 03:44 PM Reporting Lab: [facility] [address] Performing Lab: [facility] [address] PHOSPHORUS 3.1 mg/dL 2.3-4.3 Jul 07, 2024 07:41 AM [facility] BASIC METABOLIC PANEL+MG Specimen Type: PLASMA No comment entered. Ordering Provider: JEVON ZAZUETA Report Released Date/Time: Jul 06, 2024 03:44 PM Reporting Lab: [facility] [address] Performing Lab: [facility] [address] CREATININE 0.9 mg/dL 0.7-1.2 UREA NITROGEN 20 [...] 2024 03:44 PM Reporting Lab: [facility] [address] Performing Lab: [facility] [address] WBC 21.2 H 4.0-11.0 RBC 5.09 4.60-6.20 [...] 2024 01:22 PM Reporting Lab: [facility] [address] Performing Lab: [facility] [address] WBC 18.0 H 4.0-11.0 RBC 4.83 4.60-6.20 [...] 2024 01:22 PM Reporting Lab: [facility] [address] Performing Lab: [facility] [address] PHOSPHORUS 3.6 mg/dL 2.3-4.3 Jul 06, 2024 07:21 AM [facility] BASIC METABOLIC PANEL+MG Specimen Type: PLASMA No comment entered. Ordering Provider: JEVON ZAZUETA Report Released Date/Time: Jul 05, 2024 01:22 PM Reporting Lab: [facility] [address] Performing Lab: [facility] [address] CREATININE 0.7 mg/dL 0.7-1.2 UREA NITROGEN 12 [...] 2024 09:39 AM Reporting Lab: [facility] [address] Performing Lab: [facility] [address] MAGNESIUM 2.0 mg/dL 1.6-2.6 Jul 05, 2024 07:17 AM [facility] PHOSPHORUS Specimen Type: PLASMA No comment entered. Ordering Provider: JUANCARLOS ECHOLS S Report Released Date/Time: Jul 04, 2024 09:39 AM Reporting Lab: [facility] [phone] Performing Lab: [facility] [address] PHOSPHORUS 2.0 mg/dL L 2.3-4.3 Jul 05, 2024 07:17 AM [facility] BASIC METABOLIC PANEL+MG Specimen Type: PLASMA No comment entered. Ordering Provider: JUANCARLOS ECHOLS S Report Released Date/Time: Jul 04, 2024 09:39 AM Reporting Lab: [facility] [address] Performing Lab: [facility] [address] CREATININE 0.7 mg/dL 0.7-1.2 UREA NITROGEN 12 [...] 2024 09:39 AM Reporting Lab: [facility] [address] Performing Lab: [facility] [address] WBC 18.3 H 4.0-11.0 RBC 4.49 L [...] 2024 06:31 PM Reporting Lab: [facility] [address] Performing Lab: [facility] [address] CREATININE 0.7 mg/dL 0.7-1.2 UREA NITROGEN 16 [...] 2024 06:31 PM Reporting Lab: [facility] [address] Performing Lab: [facility] [address] PHOSPHORUS 2.8 mg/dL 2.3-4.3 Jul 04, 2024 07:16 AM [facility] CBC Specimen Type: BLOOD No comment entered. Ordering Provider: GABINO CAMERON Report Released Date/Time: Jul 03, 2024 06:31 PM Reporting Lab: [facility] [address] Performing Lab: [facility] [address] WBC 20.6 H 4.0-11.0 RBC 4.63 4.60-6.20 [...] 2024 06:31 PM Reporting Lab: [facility] [address] Performing Lab: [facility] [address] WBC 20.6 H 4.0-11.0 RBC 4.63 4.60-6.20 [...] 2024 06:31 PM Reporting Lab: [facility] [address] Performing Lab: [facility] [address] BNP 292 pg/mL H <99 Jul 03, 2024 10:32 PM [facility] FINGERSTICK GLUCOSE Specimen Type: BLOOD Comment: Save Result Nurse Notified Ordering Provider: KATELYNN PERSON Report Released Date/Time: Jul 03, 2024 10:50 PM Reporting Lab: [facility] [address] Performing Lab: [facility] [address] FINGERSTICK GLUCOSE 126 mg/dL H 70-100 Jul 03, 2024 05:33 PM [facility] FINGERSTICK GLUCOSE Specimen Type: BLOOD Comment: Save Result Nurse Notified Ordering Provider: KATELYNN PERSON Report Released Date/Time: Jul 03, 2024 05:46 PM Reporting Lab: [facility] [address] Performing Lab: [facility] [address] FINGERSTICK GLUCOSE 141 mg/dL H 70-100 Jul 03, 2024 02:31 PM [facility] POC ABG/ELECTROLYTES Specimen Type: ARTERIAL BLOOD Comment: FIO2 = 97% Patient Temp: 36.0 C Sample Type = ARTERIAL Ordering Provider: MAZIN ARREDONDO Report Released Date/Time: Jul 03, 2024 01:48 PM Reporting Lab: [facility] [address] Performing Lab: [facility] [address] POC PH 7.387 7.35-7.45 POC PCO2 34.4 [...] 2024 01:48 PM Reporting Lab: [facility] [address] Performing Lab: [facility] [address] POC PH 7.280 L 7.35-7.45 POC PCO2 [...] 2024 04:01 PM Reporting Lab: [facility] [address] Performing Lab: [facility] [address] URINE COLOR YELLOW SPECIFIC GRAVITY 1.031 1.003-1.03 [...] 2024 03:59 PM Reporting Lab: [facility] [address] Performing Lab: [facility] [address] WBC 15.8 H 4.0-11.0 RBC 5.11 4.60-6.20 [...] 2024 06:07 PM Reporting Lab: [facility] [address] Performing Lab: [facility] [address] CREATININE 0.8 mg/dL 0.7-1.2 UREA NITROGEN 13 [...] 2024 06:07 PM Reporting Lab: [facility] [address] Performing Lab: [facility] [address] WBC 15.5 H 4.0-11.0 RBC 4.93 4.60-6.20 [...] 2024 05:51 PM Reporting Lab: [facility] [address] Performing Lab: [facility] [address] CREATININE 0.7 mg/dL 0.7-1.2 UREA NITROGEN 16 [...] 2024 05:51 PM Reporting Lab: [facility] [address] Performing Lab: [facility] [address] WBC 14.9 H 4.0-11.0 RBC 5.09 4.60-6.20 [...] 2024 05:51 PM Reporting Lab: [facility] [address] Performing Lab: [facility] [address] CREATININE 0.7 mg/dL 0.7-1.2 UREA NITROGEN 17 [...] >60 Jun 22, 2024 06:10 PM [facility] CBC Specimen Type: BLOOD No comment entered. Ordering Provider: JEVON ZAZUETA Report Released Date/Time: Jun 22, 2024 05:51 PM Reporting Lab: [facility] [address] Performing Lab: [facility] [address] WBC 16.9 H 4.0-11.0 RBC 5.28 4.60-6.20 HGB 16.9 g/dL 13.5-17.9 HCT 50.4 41.0-54.0 MCV 95.5 fL 80.0-100.0 MCH 32.0 pg 27.0-33.0 MCHC 33.5 g/dL 32.0-37.5 PLT 223 150-400 MPV 10.9 fL 9.1-13.0 RDW 14.0 11.5-14.5 Jun 21, 2024 06:48 PM [facility] URINALYSIS Specimen Type: URINE No comment entered. Ordering Provider: DELIA MARTINEZ Report Released Date/Time: Jun 21, 2024 05:45 PM Reporting Lab: [facility] [address] Performing Lab: [facility] [address] URINE COLOR YELLOW SPECIFIC GRAVITY 1.041 H [...] 2024 06:07 PM Reporting Lab: [facility] [address] Performing Lab: [facility] [address] POC CREATININE 1.1 mg/dL 0.6-1.3 Jun 21, 2024 05:30 PM [facility] POC ABG/LACTATE Specimen Type: VENOUS BLOOD No comment entered. Ordering Provider: DELIA MARTINEZ Report Released Date/Time: Jun 21, 2024 06:07 PM Reporting Lab: [facility] [address] Performing Lab: [facility] [address] POC PH 7.470 H 7.31-7.41 POC PCO2 [...] 2024 05:30 PM Reporting Lab: [facility] [address] Performing Lab: [facility] [address] .INR 1.2 H 0.8-1.1 .PT 13.9 s H 9.4-12.5 Jun 21, 2024 05:24 PM [facility] LIPASE Specimen Type: PLASMA No comment entered. Ordering Provider: DELIA MARTINEZ Report Released Date/Time: Jun 21, 2024 05:30 PM Reporting Lab: [facility] [address] Performing Lab: [facility] [address] LIPASE 32 U/L <60 Jun 21, 2024 05:24 PM [facility] EXTRA GOLD GEL TUBE Specimen Type: SERUM No comment entered. Ordering Provider: DELIA MARTINEZ Report Released Date/Time: Jun 21, 2024 05:41 PM Reporting Lab: [facility] [address] Performing Lab: [facility] [address] EXTRA GOLD GEL TUBE RECEIVED Jun 21, 2024 05:24 PM [facility] COMPREHENSIVE METABOLIC PANEL+MG Specimen Type: PLASMA No comment entered. Ordering Provider: DELIA MARTINEZ Report Released Date/Time: Jun 21, 2024 05:30 PM Reporting Lab: [facility] [address] Performing Lab: [facility] [address] CREATININE 0.9 mg/dL 0.7-1.2 UREA NITROGEN 29 [...] 2024 05:30 PM Reporting Lab: [facility] [address] Performing Lab: [facility] [address] WBC 21.3 H 4.0-11.0 RBC 5.48 4.60-6.20 [...] this document. The data comes from all [place] facilities. Date Advance Directives Provider Source Mar [...] facilities. Date/Time Radiology Report Provider Source Jul 18, 2024 06:15 PM CHEST 1 VIEW: FLACA WEAVER YAMIL [id number] -[phone] M Exm Date: JUL 18, 2024@18:15 Req Phys: LEISA GOLDEN Pat Loc: 3E/07-18-2024@19:00 Img Loc: MAIN X-RAY Service: [facility] [place] [address] (Case [id number] COMPLETE) CHEST 1 VIEW (RAD Detailed) CPT:71778 Proc Modifiers : PORTABLE EXAM Reason for Study: SOB Clinical History: IS NOT under investigation for COVID-19 or is COVID-19 negative 73 yo with SOB Responsible provider name and phone number to notify for critical findings if other than user placing the order and pager listed below: User placing orders pager: [phone] LAST CREATININE 1.2 (07/17/24) Report Status: Verified Date Reported: JUL 18, 2024 Date Verified: JUL 18, 2024 Industrial Illuminating Engineer E-Sig:/ES/CARLOS A C[place] DO Report: EXAMINATION: CHEST 1 VIEW Reason for Study: SOB IS NOT under investigation for COVID-19 or is COVID-19 negative 73 yo with SOB Responsible provider name and phone number to notify for critical findings if other than user placing the order and pager listed below: User placing orders pager: [phone] LAST CREATININE 1.2 (07/17/24) SOB TECHNIQUE: Single portable upright AP chest radiograph. COMPARISON: 07/08/2024 FINDINGS: Symmetric hyperlucent appearance of the lungs without visible visceral pleural line or deep sulcus. Cardiomediastinal silhouette is unenlarged. Pulmonary vasculature is distinct and there is no peribronchial cuffing. No consolidation or airspace opacity. Diaphragm is well-visualized and costophrenic angles are distinct. 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 No suspicious lytic or sclerotic process or fracture. Impression: Appearance suggests obstructive lung disease. Otherwise negative chest radiograph. Primary Interpreting Staff: CARLOS A CUNNINGHAM DO, RADIOLOGIST (Industrial Illuminating Engineer) /CARLOS A ROWELL [facility] Jul 16, 2024 07:49 AM [facility] ABDOMEN/PELVIS: FLACA WEAVER [id number] -1950 M Exm Date: JUL 16, 2024@07:49 Req Phys: JATINDER CABRERA Loc: 07-17-2024@09:02 Img Loc: OUTSOURCE CT Service: Unknown (Case [id number] COMPLETE) [facility] ABDOMEN/PELVIS (CT Detailed) CPT:72410 Reason for Study: outside study Clinical History: outside study Report Status: Electronically Filed Date Reported: JUL 17, 2024 Report: This is an outside Imaging [...] BY: / *ELECTRONICALLY FILED* [facility] Jul 13, 2024 09:41 AM [facility] ABDOMEN/PELVIS: FLACA WEAVER [id number] -1950 M Exm Date: JUL 13, 2024@09:41 Req Phys: JATINDER CABRERA Loc: 07-17-2024@09:08 Img Loc: OUTSOURCE CT Service: Unknown (Case [id number] COMPLETE) [facility] ABDOMEN/PELVIS (CT Detailed) CPT:69090 Reason for Study: outside study Clinical History: outside study Report Status: Electronically Filed Date Reported: JUL 17, 2024 Report: This is an outside Imaging [...] BY: / *ELECTRONICALLY FILED* [facility] Jul 08, 2024 10:09 AM CHEST 2 VIEWS PA AND LAT: FLACA WEAVER [id number] -1950 M Exm Date: JUL 08, 2024@10:09 Req Phys: KATELYNN PERSON Pat Loc: [facility]/07-08-2024@11:49 Img Loc: MAIN X-RAY Service: [facility] [place] [address] (Case [id number] COMPLETE) CHEST 2 VIEWS PA AND LAT (RAD Detailed) CPT:64187 Reason for Study: Uptrending WBC, POD 5 Clinical History: [place] IS NOT under investigation for COVID-19 or is COVID-19 negative POD 5, work up for uptrending wbc Responsible provider name and phone number to notify for critical findings if other than user placing the order and pager listed below: User placing orders pager: Katelynn Person LAST CREATININE 0.9 (07/07/24) Report Status: Verified Date Reported: JUL 08, 2024 Date Verified: JUL 08, 2024 Industrial Illuminating Engineer E-Sig: Report: CHEST 2 VIEWS PA AND LAT HISTORY: Uptrending WBC, POD 5 COMPARISON: CT chest 11/12/2022 TECHNIQUE: Frontal and lateral views of the chest, submitted to the [place] [employer] [facility] ([facility]) for interpretation. FINDINGS: Lungs: Clear. No focal consolidation. No pulmonary edema. Pleura: No pleural effusion or pneumothorax. Mediastinum: Normal size and contour. Bones: Unremarkable. Impression: No acute cardiopulmonary disease. READING PHYSICIAN: Sarbjit Vaughn M.D. -[id number] 07/08/2024 12:[address] [facility] National Teleradiology Program [phone] (For Medical Practitioner Use Only) Attention Patients / Veterans: If you have questions or concerns about these test results, please contact your ordering provider or primary care team. Primary Interpreting Staff: RADIOLOGY,OUTSIDE SERVICE, Staff Physician / RADIOLOGY,OUTSIDE SERVICE [facility] Jul 08, 2024 10:[address] (AP) ABDOMEN/PELVIS W CONTRAST: FLACA WEAVER [id number] -1950 M Exm Date: JUL 08, 2024@10:00 Req Phys: KATELYNN PERSON [facility] Loc: [facility]/07-08-2024@12:07 Img Loc: CT IMAGING Service: [facility] [place] [address] (Case 22 COMPLETE) CT (AP) ABDOMEN/PELVIS W CONTRAST(CT Detailed) CPT:40442 Contrast Media : Non-ionic Iodinated Reason for [...] PLASMA .CREAT EGFR(CKD-E >90 Ref: >=60 Allergies: (Normangee only) TERAZOSIN (Mar 13, 2015) Report Status: Verified Date Reported: JUL 08, 2024 Date Verified: JUL 08, 2024 Industrial Illuminating Engineer E-Sig: Report: CT (AP) ABDOMEN/PELVIS W CONTRAST HISTORY: POD 5, Uptrending WBC - Concern for Abscess/other infection COMPARISON: June 21, 2024 TECHNIQUE: CT abdomen and pelvis was performed after intravenous contrast. Axial, sagittal and coronal reformatted images. The study was [place] at the local [place] facility and images were sent to the [place] [facility] (NTP) for interpretation. Number of [...] as noted above READING PHYSICIAN: Celestino Blanc -[id number] 07/08/2024 13:04 EST [facility] National Teleradiology Program [phone] (For Medical Practitioner Use Only) Attention Patients / Veterans: If you have questions or concerns about these test results, please contact your ordering provider or primary care team. Primary Interpreting Staff: RADIOLOGY,OUTSIDE SERVICE, Staff Physician / RADIOLOGY,OUTSIDE SERVICE [facility] Jun 22, 2024 11:49 AM ABSCESS DRAIN PLACEMENT PERITONEAL (P): FLACA WEAVER [id number] -1950 M Exm Date: JUN 22, 2024@11:49 Req Phys: ANGELA HOLDEN Amanda Loc: [facility]/06-22-2024@17:14 Img Loc: INTERVENTIONAL RADIOLOGY Service: [facility] [place] [address] (Case [id number] COMPLETE) IR PERITONEAL/RETROPERITONEAL PER(ANI Detailed) CPT:15782 Reason for Study: diverticulitis with abscess (Case 3570 COMPLETE) IR MOD SEDATION 10-22 MIN (ANI Detailed) CPT:00137 Clinical History: IS NOT under investigation for COVID-19 or is COVID-19 negative 73 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 please place abscess drain. Contact number for responsible provider who can be reached for any questions or notifications of critical findings: [phone] n/a LAST CREATININE 0.9 (06/21/24) Report Status: Verified Date Reported: JUN 22, 2024 Date Verified: JUN 22, 2024 Industrial Illuminating Engineer E-Sig:/ES/LISA PENDLETON MD Report: PROCEDURES: Placement [...] Using real-time CT fluoroscopy, a 5 Greek Jintronixesis catheter was advanced into the collection in [...] Primary Interpreting Staff: LISA PENDLETON MD, RADIOLOGIST (Industrial Illuminating Engineer) /JRT LISA PENDLETON [facility] Jun 22, 2024 11:[address] NEEDLE PLACEMENT (P): MEGFLACADARCI LOBO [id number] -1950 M Exm Date: JUN 22, 2024@11:48 Req Phys: ANGELA HOLDEN Loc: [facility]/06-22-2024@17:14 Img Loc: CT IMAGING Service: [facility] [place] [address] (Case [id number] COMPLETE) CT SCAN FOR NEEDLE PLACEMENT (CT Detailed) CPT:11488 Reason for Study: l pelvic abscess drain Clinical History: Report Status: Verified Date Reported: JUN 22, 2024 Date Verified: JUN 22, 2024 Industrial Illuminating Engineer E-Sig:/ES/LISA PENDLETON MD Report: PROCEDURES: Placement [...] Using real-time CT fluoroscopy, a 5 Greek Jintronixesis catheter was advanced into the collection in [...] Primary Interpreting Staff: LISA PENDLETON MD, RADIOLOGIST (Industrial Illuminating Engineer) /JRT LISA PENDLETON [facility] Jun 21, 2024 06:[address] (AP) ABDOMEN/PELVIS (P): FLACA WEAVER [id number] -1950 M Exm Date: JUN 21, 2024@18:09 Req Phys: DELIA MARTINEZ Loc: [facility] EMERGENCY DEPT WALK-IN (Re Img Loc: CT IMAGING Service: [place] [address] (Case [id number] COMPLETE) CT (AP) ABDOMEN/PELVIS W CONTRAST(CT Detailed) CPT:16668 Contrast Media : Non-ionic Iodinated Reason for [...] PLASMA .CREAT EGFR(CKD-E >90 Ref: >=60 Allergies: (Normangee only) TERAZOSIN (Mar 13, 2015) Defer to [...] 21, 2024 Date Verified: JUN 21, 2024 Industrial Illuminating Engineer E-Sig:/ES/CARLOS A CUNNINGHAM DO Report: EXAMINATION: [...] Interpreting Staff: CARLOS A CUNNINGHAM DO, RADIOLOGIST (Industrial Illuminating Engineer) /CARLOS A ROWELL [facility] Pathology [...] facilities. Date/Time Pathology Report Provider Source Jul 16, 2024 02:07 PM LR MICROBIOLOGY RE PORT: Reporting Lab: [facility] [CLIA# [id number]] [place] [address] Accession [UID]: [id number] [[id number]] Received: Jul 16, 2024@14:41 Collection sample: BLOOD Collection date: Jul 16, 2024 14:07 Provider: LEISA GOLDEN Comment on specimen: R AC, RECEIVED 2 BLOOD CULTURE BOTTLES Test(s) ordered: CULTURE & SUSCEPTIBILITY...... completed: Jul 22, 2024 * BACTERIOLOGY FINAL REPORT => Jul 22, 2024 13:39 TECH CODE: [id number] CULTURE RESULTS: NO GROWTH 5 DAYS Bacteriology Remark(s): THIS REPORT IS FINAL =--=--=--=--=--=--=--=--=--= --=--=--=--=--=--=--=--=--=- -=--=--=--=--=--=--=-- Performing Laboratory: Bacteriology Report Performed By: [facility] [CLIA# [id number]] [place] [address] [facility] Jul 16, 2024 01:54 PM LR MICROBIOLOGY RE PORT: Reporting Lab: [facility] [CLIA# [id number]] [place] [address] Accession [UID]: [id number] [[id number]] Received: Jul 16, 2024@14:41 Collection sample: BLOOD Collection date: Jul 16, 2024 13:54 Provider: LEISA GOLDEN Comment on specimen: L AC, RECEIVED 2 BLOOD CULTURE BOTTLES Test(s) ordered: CULTURE & SUSCEPTIBILITY...... completed: Jul 22, 2024 * BACTERIOLOGY FINAL REPORT => Jul 22, 2024 13:39 TECH CODE: [id number] CULTURE RESULTS: NO GROWTH 5 DAYS Bacteriology Remark(s): THIS REPORT IS FINAL =--=--=--=--=--=--=--=--=--= --=--=--=--=--=--=--=--=--=- -=--=--=--=--=--=--=-- Performing Laboratory: Bacteriology Report Performed By: [facility] [CLIA# [id number]] [place] [address] [facility] Jul 03, 2024 05:59 AM LR SURGICAL PATHOL OGY REPORT: LOCAL TITLE: LR SURGICAL PATHOLOGY REPORT STANDARD TITLE: PATHOLOGY REPORT DATE OF NOTE: JUL 06, 2024@10:40:48 ENTRY DATE: JUL 06, 2024@10:40:48 AUTHOR: EDUARDO PALOMARES EXP COSIGNER: URGENCY: STATUS: COMPLETED $APHDR Reporting Lab: [facility] [CLIA# [id number]] [place] [address] - - - - - - - [...] - PATHOLOGY REPORT Accession No. [id number] - - - - - - - [...] - PATHOLOGY REPORT Accession No. [id number] - - - - - - - [...] Second circumferential surgical margin, en face; E-F: Diamond Selector diverticula; G: Diamond Selector section of mesentery; H: Random client support representative section of additional adipose tissue [...] One colonic tissue ring, bisected transversely. [facility]: Microscopic examination performed. DIAGNOSIS: 1. Colon, sigmoid, sigmoidectomy-- - Diverticulosis with perforation and focal abscess formation 2. Colon, anastomotic rings, excision-- - Viable colonic mucosa without diagnostic abnormality /es/ EDUARDO PALOMARES MD STAFF PATHOLOGIST Signed Jul 06, 2024@10:40 Performing Laboratory: Surgical Pathology Report Performed By: [facility] [CLIA# [id number]] [place] [address] $FTR - - - - - - [...] - - FLACA WEAVER STANDARD FORM 515 ID:[id number] SEX:M :1950 AGE: 73 LOC:03919 ADM:Jun DX:DIVERTICULITIS PCP: Jatinder Cabrera /alexi/ EDUARDO PALOMARES MD STAFF PATHOLOGIST Signed: 07/06/2024 10:40 EDUARDO PALOMARES [facility] Jun 22, 2024 01:15 PM LR MICROBIOLOGY RE PORT: Reporting Lab: [facility] [CLIA# [id number]] [place] [address] Accession [UID]: [id number] [[id number]] Received: Jun 22, 2024@13:38 Collection sample: FLUID Collection date: Jun 22, 2024 13:15 Provider: ANGELA HOLDEN Comment on specimen: LLQ ABSCESS, RECEIVED IN ANAEROBIC TRANSPORT VIAL Test(s) ordered: GRAM STAIN.................... completed: Jun 22, 2024 15:03 CULTURE & SUSCEPTIBILITY...... completed: Jun 25, 2024 * BACTERIOLOGY FINAL REPORT => Jun 25, 2024 10:56 [facility] CODE: [id number] GRAM STAIN: DIRECT SMEAR of specimen before [...] Report Performed By: [facility] [CLIA# [id number]] [place] [address] [facility] Jun 22, 2024 01:15 PM LR MICROBIOLOGY RE PORT: Reporting Lab: [facility] [CLIA# [id number]] [place] [address] Accession [UID]: [id number] [[id number]] Received: Jun 22, 2024@13:38 Collection sample: FLUID Collection date: Jun 22, 2024 13:15 Provider: ANGELA HOLDEN Comment on specimen: LLQ ABSCESS, RECEIVED IN ANAEROBIC TRANSPORT VIAL Test(s) ordered: ANAEROBIC CULTURE............. completed: Jun 28, 2024 * BACTERIOLOGY FINAL REPORT => Jun 28, 2024 10:08 TECH CODE: [id number] CULTURE RESULTS: HEAVY GROWTH MIXED ANAEROBES Comment: [...] Bacteriology Report Performed By: [facility] [IA# [id number]] [place] [address] [facility] Jun 21, 2024 06:12 PM LR MICROBIOLOGY RE PORT: Reporting Lab: [facility] [IA# [id number]] [place] [address] Accession [UID]: [id number] [[id number]] Received: Jun 21, 2024@18:12 Collection sample: BLOOD [...] Report Performed By: [facility] [CLIA# [id number]] [place] [address] [facility] Jun 21, 2024 06:11 PM LR MICROBIOLOGY RE PORT: Reporting Lab: [facility] [CLIA# [id number]] [place] [address] Accession [UID]: [id number] [[id number]] Received: Jun 21, 2024@18:11 Collection sample: BLOOD [...] Report Performed By: [facility] [CLIA# [id number]] [place] [address] [facility] Encounter Notes: All associated encounter notes This section contains the clinical notes associated to the Encounter. Date/Time Encounter Note(s) Provider Source Jul 16, 2024 08:10 AM ADDENDUM: LOCAL TITLE: Addendum STANDARD TITLE: ADDENDUM DATE OF NOTE: JUL 16, 2024@08:10:17 ENTRY DATE: JUL 16, 2024@08:10:18 AUTHOR: SHAHNAZ ALAS EXP COSIGNER: URGENCY: STATUS: COMPLETED [place] was seen in an outside ER on: 07/13/2024 Diagnosis: Post op nasuea Patient reported to [facility] ED with complatins of ongoing nausea and intermittent vomitting. Patient requesting a review of his stool. Medical records have been uploaded to the patient's chart and are available for viewing in [facility] and are available in [facility] within [facility] Summaries and Documents widget. Please review for plan of care and any follow-up needed. /alexi/ Shahnaz Alas ELECTRICAL AND INSTRUMENT MECHANIC labor arbitrator Evs Manager Signed: 07/16/2024 08:14 Receipt Acknowledged By: 07/16/2024 14:29 /es/ Jatinder Cabrera MD Physician 07/16/2024 10:08 /es/ SAMANTA RODRIGUEZ REGISTERED NURSE for GUERITA AGUILA --- Original Document --- 07/13/24 [facility] PRESENTING CARE COORD PLAN NOTE: Emergency Notification Intake Date Presenting to the Facility: Jun Method of Contact: Notified from [employer] worklist Notification ID: [id number] [facility] Referral #: [facility] Name: Hospital: [facility] Address: City: [place] State: [place] Zip Code: Phone : [facility] Facility Point of Contact: Name: ED IWONA Chief complaint: RECENT OSTOMY, UNABLE TO EAT OR DRINK DUE TO NAUSEA Primary Diagnosis: Disposition Unknown at time of intake note entry /es/ WENDY [employer] SALES LEAD Signed: 07/13/2024 08:17 Receipt Acknowledged By: 07/13/2024 10:25 /es/ Shahnaz Alas RN BSN labor arbitrator Evs Manager 07/13/2024 ADDENDUM STATUS: COMPLETED Records have been requested for this episode of care. Alerting PACT RN for awareness. /es/ Shahnaz Alas RN BSN labor arbitrator Evs Manager Signed: 07/13/2024 10:26 Receipt Acknowledged By: 07/13/2024 10:53 /es/ GUERITA AGUILA RN REGISTERED NURSE 07/13/2024 ADDENDUM STATUS: COMPLETED [facility] Scanned Document - Addendum. [facility] ED records SCANNED DOCUMENT SIGNATURE NOT REQUIRED Electronically Filed: 07/16/2024 by: Shahnaz Alas ELECTRICAL AND INSTRUMENT MECHANIC labor arbitrator Evs Manager SHAHNAZ ALAS [facility] Jul 13, 2024 10:26 AM ADDENDUM: LOCAL TITLE: Addendum STANDARD TITLE: ADDENDUM DATE OF NOTE: JUL 13, 2024@10:26:22 ENTRY DATE: JUL 13, 2024@10:26:23 AUTHOR: SHAHNAZ ALAS EXP COSIGNER: URGENCY: STATUS: COMPLETED Records have been requested for this episode of care. Alerting PACT RN for awareness. /alexi/ Shahnaz Alas ELECTRICAL AND INSTRUMENT MECHANIC labor arbitrator Evs Manager Signed: 07/13/2024 10:26 Receipt Acknowledged By: 07/13/2024 10:53 /alexi/ GUERITA AGUILA RN REGISTERED NURSE --- Original Document --- 07/13/24 [facility] PRESENTING CARE COORD PLAN NOTE: Emergency Notification Intake Date Presenting to the Facility: Jun Method of Contact: Notified from [employer] worklist Notification ID: [id number] Referral #: [facility] Name: Hospital: [facility] Address: City: [place] State: [place] Zip Code: Phone : [facility] Facility Point of Contact: Name: JEEVAN BUSTILLO Chief complaint: RECENT OSTOMY, UNABLE TO EAT OR DRINK DUE TO NAUSEA Primary Diagnosis: Disposition Unknown at time of intake note entry /alexi/ WENDY [employer] RETAIL SALES LEAD Signed: 07/13/2024 08:17 Receipt Acknowledged By: 07/13/2024 10:25 /alexi/ Shahnaz Alas RN BSN labor arbitrator Evs Manager SHAHNAZ ALAS [facility] Jul 13, 2024 08:16 AM [...] Facility: Jun Method of Contact: Notified from [employer] worklist Notification ID: [id number] [facility] Address: City: [place] State: [place] Zip Code: Phone : [facility] Facility Point of Contact: Name: ED IWONA Chief complaint: RECENT OSTOMY, UNABLE TO EAT OR DRINK DUE TO NAUSEA Primary Diagnosis: Disposition Unknown at time of intake note entry /alexi/ WENDY [employer] RET[employer] SALES LEAD Signed: 07/13/2024 08:17 Receipt Acknowledged By: 07/13/2024 10:25 /alexi/ Shahnaz Alas ELECTRICAL AND INSTRUMENT MECHANIC labor arbitrator Evs Manager 07/13/2024 ADDENDUM STATUS: COMPLETED Records have been requested for this episode of care. Alerting PACT RN for awareness. /alexi/ Shahnaz Alas ELECTRICAL AND INSTRUMENT MECHANIC labor arbitrator Evs Manager Signed: 07/13/2024 10:26 Receipt Acknowledged By: 07/13/2024 10:53 /alexi/ GUERITA AGUILA RN REGISTERED NURSE 07/16/2024 ADDENDUM STATUS: COMPLETED was seen in an outside ER on: 07/13/2024 Diagnosis: Post op nasuea Patient reported to [facility] ED with complatins of ongoing nausea and intermittent vomitting. Patient requesting a review of his stool. Medical records have been uploaded to the patient's chart and are available for viewing in [facility] and are available in [facility] within [facility] Summaries and Documents widget. Please review for plan of care and any follow-up needed. /alexi/ Shahnaz Alas ELECTRICAL AND INSTRUMENT MECHANIC labor arbitrator Evs Manager Signed: 07/16/2024 08:14 Receipt Acknowledged By: * AWAITING SIGNATURE * JATINDER CABRERA * AWAITING SIGNATURE * GUERITA AGUILA 07/13/2024 ADDENDUM STATUS: COMPLETED [facility] Scanned Document - Addendum. [facility] ED records SCANNED DOCUMENT SIGNATURE NOT REQUIRED Electronically Filed: 07/16/2024 by: Shahnaz Alas ELECTRICAL AND INSTRUMENT MECHANIC labor arbitrator Evs Manager WENDY ESQUIVEL [facility]
--- OUTSIDE RECORDS SUMMARY | 2024-08-01 07:30 | XMS_ITS | Encounter Summary ---
Author Name [facility] [place] Organization [facility] [place] Address [address] [place] [address] Care Team Providers Care Design Assembler Name Role Phone JATINDER CABRERA Primary [...] PART A Sep 29, 2016 PART A [id number] [phone] JUDY WEAVER PATIENT Selected Encounter This section [...] 16, 2024 08:40 AM [facility] Jul 16, 2024 11:30 AM AMBULATORY - NONE [facility] Active, Pending, and Scheduled [...] comes from all [facility] facilities. Test Date/Time Test Type Test Details Facility Name Jun 08, 2024 09:57 AM Laboratory - Chemi stry Order URINALYSIS URINE WC ONCE [facility] Jun 12, 2024 12:00 AM Laboratory - Chemi stry Order BNP PLASMA SP ONCE [facility] Jun 21, 2024 05:45 PM Laboratory - Blood Bank Order TYPE & SCREEN - LAB BLOOD [facility] Jul 03, 2024 12:00 AM Laboratory - Blood Bank Order TYPE & SCREEN - LAB BLOOD [facility] Jul 16, 2024 12:00 [...] Range Comment Jul 21, 2024 10:[address] [facility] BASIC METABOLIC PANEL+MG Specimen Type: PLASMA No comment entered. Ordering Provider: SARAI GOLDEN Report Released Date/Time: Jul 20, 2024 06:50 PM Reporting Lab: [facility] [address] Performing Lab: [facility] [address] CREATININE 0.8 mg/dL 0.7-1.2 UREA NITROGEN 31 mg/dL H 8-26 GLUCOSE 120 mg/dL H 70-100 SODIUM 125 mmol/L L 136-145 POTASSIUM 4.4 mmol/L 3.5-5.1 CHLORIDE 100 mmol/L 98-107 CO2 17 mmol/L L 22-29 CALCIUM 9.6 mg/dL 8.4-10.2 MAGNESIUM 1.9 mg/dL 1.6-2.6 ANION GAP 8 mmol/L 5-15 .CREAT EGFR(CKD-EPI) >90 >60 Jul 21, 2024 10:[address] [facility] CBC Specimen Type: BLOOD No comment entered. Ordering Provider: SARAI GOLDEN Report Released Date/Time: Jul 20, 2024 06:50 PM Reporting Lab: [facility] [address] Performing Lab: [facility] [address] WBC 16.0 H 4.0-11.0 RBC 5.16 4.60-6.20 HGB 15.8 g/dL 13.5-17.9 HCT 45.5 41.0-54.0 MCV 88.2 fL 80.0-100.0 MCH 30.6 pg 27.0-33.0 MCHC 34.7 g/dL 32.0-37.5 PLT 428 H 150-400 MPV 10.8 fL 9.1-13.0 RDW 13.6 11.5-14.5 Jul 20, 2024 01:[address] [facility] SODIUM,URINE RANDOM Specimen Type: URINE No comment entered. Ordering Provider: SARAI GOLDEN Report Released Date/Time: Jul 20, 2024 08:22 AM Reporting Lab: [facility] [address] Performing Lab: [facility] [address] SODIUM,URINE RANDOM <20 mmol/L Jul 20, 2024 01:[address] [facility] OSMOLALITY,URINE Specimen Type: URINE No comment entered. Ordering Provider: SARAI GOLDEN Report Released Date/Time: Jul 20, 2024 08:22 AM Reporting Lab: [facility] [address] Performing Lab: [facility] [address] OSMOLALITY,URIN E 648 mosm/kg 500-800 Jul 20, 2024 06:[address] [facility] BASIC METABOLIC PANEL+MG Specimen Type: PLASMA No comment entered. Ordering Provider: SARAI GOLDEN Report Released Date/Time: Jul 19, 2024 06:13 PM Reporting Lab: [facility] [address] Performing Lab: [facility] [address] CREATININE 0.8 mg/dL 0.7-1.2 UREA NITROGEN 36 mg/dL H 8-26 GLUCOSE 111 mg/dL H 70-100 SODIUM 121 mmol/L L 136-145 POTASSIUM 4.1 mmol/L 3.5-5.1 CHLORIDE 99 mmol/L 98-107 CO2 14 mmol/L L 22-29 CALCIUM 9.5 mg/dL 8.4-10.2 MAGNESIUM 1.8 mg/dL 1.6-2.6 ANION GAP 8 mmol/L 5-15 .CREAT EGFR(CKD-EPI) >90 >60 Jul 20, 2024 06:[address] [facility] CBC & DIFF Specimen Type: BLOOD Comment: Automated Differential Performed Ordering Provider: SARAI GOLDEN Report Released Date/Time: Jul 19, 2024 06:13 PM Reporting Lab: [facility] [address] Performing Lab: [facility] [address] WBC 16.6 H 4.0-11.0 RBC 4.96 4.60-6.20 [...] H 0.0-0.1 Jul 20, 2024 05:[address] [facility] OSMOLALITY,SERUM Specimen Type: SERUM No comment entered. Ordering Provider: SARAI GOLDEN Report Released Date/Time: Jul 20, 2024 09:47 AM Reporting Lab: [facility] [address] Performing Lab: [facility] [address] OSMOLALITY,SERU M 266 mosm/kg L 276-305 Jul 19, 2024 08:[address] [facility] BASIC METABOLIC PANEL+MG Specimen Type: PLASMA No comment entered. Ordering Provider: SARAI GOLDEN Report Released Date/Time: Jul 18, 2024 10:24 PM Reporting Lab: [facility] [address] Performing Lab: [facility] [address] CREATININE 1.0 mg/dL 0.7-1.2 UREA NITROGEN 40 mg/dL H 8-26 GLUCOSE 104 mg/dL H 70-100 SODIUM 129 mmol/L L 136-145 POTASSIUM 3.3 mmol/L L 3.5-5.1 CHLORIDE 104 mmol/L 98-107 CO2 16 mmol/L L 22-29 CALCIUM 8.0 mg/dL L 8.4-10.2 MAGNESIUM 1.7 mg/dL 1.6-2.6 ANION GAP 9 mmol/L 5-15 .CREAT EGFR(CKD-EPI) 80 >60 Jul 19, 2024 08:[address] [facility] CBC Specimen Type: BLOOD No comment entered. Ordering Provider: SARAI GOLDEN Report Released Date/Time: Jul 18, 2024 10:24 PM Reporting Lab: [facility] [address] Performing Lab: [facility] [address] WBC 17.3 H 4.0-11.0 RBC 4.83 4.60-6.20 HGB 14.8 g/dL 13.5-17.9 HCT 42.6 41.0-54.0 MCV 88.2 fL 80.0-100.0 MCH 30.6 pg 27.0-33.0 MCHC 34.7 g/dL 32.0-37.5 PLT 456 H 150-400 MPV 10.8 fL 9.1-13.0 RDW 13.7 11.5-14.5 Jul 17, 2024 06:[address] [facility] PHOSPHORUS Specimen Type: PLASMA No comment entered. Ordering Provider: SARAI GOLDEN Report Released Date/Time: Jul 17, 2024 01:54 PM Reporting Lab: [facility] [address] Performing Lab: [facility] [address] PHOSPHORUS 2.9 mg/dL 2.3-4.3 Jul 17, 2024 06:[address] [facility] BASIC METABOLIC PANEL+MG Specimen Type: PLASMA No comment entered. Ordering Provider: SARAI GOLDEN Report Released Date/Time: Jul 17, 2024 01:54 PM Reporting Lab: [facility] [address] Performing Lab: [facility] [address] CREATININE 1.2 mg/dL 0.7-1.2 UREA NITROGEN 62 mg/dL H 8-26 GLUCOSE 116 mg/dL H 70-100 SODIUM 128 mmol/L L 136-145 POTASSIUM 3.8 mmol/L 3.5-5.1 CHLORIDE 100 mmol/L 98-107 CO2 16 mmol/L L 22-29 CALCIUM 9.3 mg/dL 8.4-10.2 MAGNESIUM 2.1 mg/dL 1.6-2.6 ANION GAP 12 mmol/L 5-15 .CREAT EGFR(CKD-EPI) 64 >60 Jul 17, 2024 07:[address] [facility] CBC & DIFF Specimen Type: BLOOD Comment: Manual Differential Performed Ordering Provider: SARAI GOLDEN Report Released Date/Time: Jul 16, 2024 04:52 PM Reporting Lab: [facility] [address] Performing Lab: [facility] [address] WBC 18.9 H 4.0-11.0 RBC 5.55 4.60-6.20 [...] MORPHOLOGY PRESENT Jul 17, 2024 07:[address] [facility] ALBUMIN Specimen Type: PLASMA No comment entered. Ordering Provider: SARAI GOLDEN Report Released Date/Time: Jul 16, 2024 12:12 PM Reporting Lab: [facility] [address] Performing Lab: [facility] [address] ALBUMIN 4.3 g/dL 3.5-5.0 Jul 17, 2024 07:[address] [facility] COMPREHENSIVE METABOLIC PANEL+MG Specimen Type: PLASMA No comment entered. Ordering Provider: SARAI GOLDEN Report Released Date/Time: Jul 16, 2024 04:52 PM Reporting Lab: [facility] [address] Performing Lab: [facility] [address] CREATININE 1.3 mg/dL H 0.7-1.2 UREA NITROGEN [...] L >60 Jul 16, 2024 07:[address] [facility] LACTIC ACID Specimen Type: PLASMA No comment entered. Ordering Provider: SARAI GOLDEN Report Released Date/Time: Jul 16, 2024 12:12 PM Reporting Lab: [facility] [address] Performing Lab: [facility] [address] LACTIC ACID 0.9 mmol/L 0.5-2.2 Jul 16, 2024 02:[address] [facility] MRSA SURVL NARES DNA Specimen Type: NARES No comment entered. Ordering Provider: SARAI GOLDEN Report Released Date/Time: Jul 16, 2024 12:12 PM Reporting Lab: [facility] [address] Performing Lab: [facility] [address] MRSA SURVL NARES DNA NEGATIVE Negative Jul 16, 2024 02:[address] [facility] LACTIC ACID Specimen Type: PLASMA No comment entered. Ordering Provider: SARAI GOLDEN Report Released Date/Time: Jul 16, 2024 12:12 PM Reporting Lab: [facility] [address] Performing Lab: [facility] [address] LACTIC ACID 0.9 mmol/L 0.5-2.2 Jul 16, 2024 02:[address] [facility] COMPREHENSIVE METABOLIC PANEL+MG Specimen Type: PLASMA No comment entered. Ordering Provider: SARAI GOLDEN Report Released Date/Time: Jul 16, 2024 12:12 PM Reporting Lab: [facility] [address] Performing Lab: [facility] [address] CREATININE 2.0 mg/dL H 0.7-1.2 UREA NITROGEN [...] L >60 Jul 16, 2024 02:[address] [facility] CBC & DIFF Specimen Type: BLOOD Comment: Manual Differential Performed Ordering Provider: SARAI GOLDEN Report Released Date/Time: Jul 16, 2024 12:12 PM Reporting Lab: [facility] [address] Performing Lab: [facility] [address] WBC 19.7 H 4.0-11.0 RBC 5.39 4.60-6.20 [...] MORPHOLOGY PRESENT Jul 10, 2024 07:[address] [facility] PHOSPHORUS Specimen Type: PLASMA No comment entered. Ordering Provider: JUANCARLOS ECHOLS S Report Released Date/Time: Jul 09, 2024 12:23 PM Reporting Lab: [facility] [address] Performing Lab: [facility] [address] PHOSPHORUS 3.0 mg/dL 2.3-4.3 Jul 10, 2024 07:[address] [facility] BASIC METABOLIC PANEL+MG Specimen Type: PLASMA No comment entered. Ordering Provider: JUANCARLOS ECHOLS S Report Released Date/Time: Jul 09, 2024 12:23 PM Reporting Lab: [facility] [address] Performing Lab: [facility] [address] CREATININE 0.7 mg/dL 0.7-1.2 UREA NITROGEN 27 [...] Jul 09, 2024 12:23 PM Reporting Lab: [facility] [address] Performing Lab: [facility] [address] WBC 18.8 H 4.0-11.0 RBC 5.08 4.60-6.20 [...] Jul 08, 2024 06:18 PM Reporting Lab: [facility] [address] Performing Lab: [facility] [address] WBC 15.3 H 4.0-11.0 RBC 4.91 4.60-6.20 [...] Jul 08, 2024 08:41 AM Reporting Lab: [facility] [address] Performing Lab: [facility] [address] URINE COLOR YELLOW SPECIFIC GRAVITY >1.050 H [...] Jul 07, 2024 04:49 PM Reporting Lab: [facility] [address] Performing Lab: [facility] [address] WBC 17.5 H 4.0-11.0 RBC 4.88 4.60-6.20 [...] Jul 07, 2024 04:49 PM Reporting Lab: [facility] [address] Performing Lab: [facility] [address] PHOSPHORUS 2.6 mg/dL 2.3-4.3 Jul 08, 2024 09:[address] [facility] BASIC METABOLIC PANEL+MG Specimen Type: PLASMA Comment: Specimen received in Lab at: [id number] Ordering Provider: JUANCARLOS ECHOLS S Report Released Date/Time: Jul 07, 2024 04:49 PM Reporting Lab: [facility] [address] Performing Lab: [facility] [address] CREATININE 0.9 mg/dL 0.7-1.2 UREA NITROGEN 26 [...] Jul 07, 2024 12:26 PM Reporting Lab: [facility] [address] Performing Lab: [facility] [address] C DIFF TOX B GENE PCR NEGATIVE Negative Jul 07, 2024 07:[address] [facility] PHOSPHORUS Specimen Type: PLASMA No comment entered. Ordering Provider: JEVON ZAZUETA Report Released Date/Time: Jul 06, 2024 03:44 PM Reporting Lab: [facility] [address] Performing Lab: [facility] [address] PHOSPHORUS 3.1 mg/dL 2.3-4.3 Jul 07, 2024 07:[address] [facility] BASIC METABOLIC PANEL+MG Specimen Type: PLASMA No comment entered. Ordering Provider: JEVON ZAZUETA Report Released Date/Time: Jul 06, 2024 03:44 PM Reporting Lab: [facility] [address] Performing Lab: [facility] [address] CREATININE 0.9 mg/dL 0.7-1.2 UREA NITROGEN 20 [...] Jul 06, 2024 03:44 PM Reporting Lab: [facility] [address] Performing Lab: [facility] [address] WBC 21.2 H 4.0-11.0 RBC 5.09 4.60-6.20 [...] Jul 05, 2024 01:22 PM Reporting Lab: [facility] [address] Performing Lab: [facility] [address] WBC 18.0 H 4.0-11.0 RBC 4.83 4.60-6.20 [...] Jul 05, 2024 01:22 PM Reporting Lab: [facility] [address] Performing Lab: [facility] [address] PHOSPHORUS 3.6 mg/dL 2.3-4.3 Jul 06, 2024 07:[address] [facility] BASIC METABOLIC PANEL+MG Specimen Type: PLASMA No comment entered. Ordering Provider: JEVON ZAZUETA Report Released Date/Time: Jul 05, 2024 01:22 PM Reporting Lab: [facility] [address] Performing Lab: [facility] [address] CREATININE 0.7 mg/dL 0.7-1.2 UREA NITROGEN 12 [...] Jul 04, 2024 09:39 AM Reporting Lab: [facility] [address] Performing Lab: [facility] [address] MAGNESIUM 2.0 mg/dL 1.6-2.6 Jul 05, 2024 07:[address] [facility] PHOSPHORUS Specimen Type: PLASMA No comment entered. Ordering Provider: JUANCARLOS ECHOLS S Report Released Date/Time: Jul 04, 2024 09:39 AM Reporting Lab: [facility] [address] Performing Lab: [facility] [address] PHOSPHORUS 2.0 mg/dL L 2.3-4.3 Jul 05, 2024 07:[address] [facility] BASIC METABOLIC PANEL+MG Specimen Type: PLASMA No comment entered. Ordering Provider: JUANCARLOS ECHOLS S Report Released Date/Time: Jul 04, 2024 09:39 AM Reporting Lab: [facility] [address] Performing Lab: [facility] [address] CREATININE 0.7 mg/dL 0.7-1.2 UREA NITROGEN 12 [...] Jul 04, 2024 09:39 AM Reporting Lab: [facility] [address] Performing Lab: [facility] [address] WBC 18.3 H 4.0-11.0 RBC 4.49 L [...] Jul 03, 2024 06:31 PM Reporting Lab: [facility] [address] Performing Lab: [facility] [address] CREATININE 0.7 mg/dL 0.7-1.2 UREA NITROGEN 16 [...] Jul 03, 2024 06:31 PM Reporting Lab: [facility] [address] Performing Lab: [facility] [address] PHOSPHORUS 2.8 mg/dL 2.3-4.3 Jul 04, 2024 07:[address] [facility] CBC Specimen Type: BLOOD No comment entered. Ordering Provider: GABINO CAMERON Report Released Date/Time: Jul 03, 2024 06:31 PM Reporting Lab: [facility] [address] Performing Lab: [facility] [address] WBC 20.6 H 4.0-11.0 RBC 4.63 4.60-6.20 [...] Jul 03, 2024 06:31 PM Reporting Lab: [facility] [address] Performing Lab: [facility] [address] WBC 20.6 H 4.0-11.0 RBC 4.63 4.60-6.20 [...] Jul 03, 2024 06:31 PM Reporting Lab: [facility] [address] Performing Lab: [facility] [address] BNP 292 pg/mL H <99 Jul 03, 2024 10:[address] [facility] FINGERSTICK GLUCOSE Specimen Type: BLOOD Comment: Save Result Nurse Notified Ordering Provider: KATELYNN PERSON Report Released Date/Time: Jul 03, 2024 10:50 PM Reporting Lab: [facility] [address] Performing Lab: [facility] [address] FINGERSTICK GLUCOSE 126 mg/dL H 70-100 Jul 03, 2024 05:[address] [facility] FINGERSTICK GLUCOSE Specimen Type: BLOOD Comment: Save Result Nurse Notified Ordering Provider: KATELYNN PERSON Report Released Date/Time: Jul 03, 2024 05:46 PM Reporting Lab: [facility] [address] Performing Lab: [facility] [address] FINGERSTICK GLUCOSE 141 mg/dL H 70-100 Jul 03, 2024 02:[address] [facility] POC ABG/ELECTROLYTES Specimen Type: ARTERIAL BLOOD Comment: FIO2 = 97% Patient Temp: 36.0 C Sample Type = ARTERIAL Ordering Provider: MAIZN ARREDONDO Report Released Date/Time: Jul 03, 2024 01:48 PM Reporting Lab: [facility] [address] Performing Lab: [facility] [address] POC PH 7.387 7.35-7.45 POC PCO2 34.4 [...] Jul 03, 2024 01:48 PM Reporting Lab: [facility] [address] Performing Lab: [facility] [address] POC PH 7.280 L 7.35-7.45 POC PCO2 [...] Jun 12, 2024 04:01 PM Reporting Lab: [facility] [address] Performing Lab: [facility] [address] URINE COLOR YELLOW SPECIFIC GRAVITY 1.031 1.003-1.03 [...] Jun 12, 2024 03:59 PM Reporting Lab: [facility] [address] Performing Lab: [facility] [address] WBC 15.8 H 4.0-11.0 RBC 5.11 4.60-6.20 [...] Jun 23, 2024 06:07 PM Reporting Lab: [facility] [address] Performing Lab: [facility] [address] CREATININE 0.8 mg/dL 0.7-1.2 UREA NITROGEN 13 [...] Jun 23, 2024 06:07 PM Reporting Lab: [facility] [address] Performing Lab: [facility] [address] WBC 15.5 H 4.0-11.0 RBC 4.93 4.60-6.20 [...] Jun 22, 2024 05:51 PM Reporting Lab: [facility] [address] Performing Lab: [facility] [address] CREATININE 0.7 mg/dL 0.7-1.2 UREA NITROGEN 16 [...] Jun 22, 2024 05:51 PM Reporting Lab: [facility] [address] Performing Lab: [facility] [address] WBC 14.9 H 4.0-11.0 RBC 5.09 4.60-6.20 [...] Jun 22, 2024 05:51 PM Reporting Lab: [facility] [address] Performing Lab: [facility] [address] WBC 16.9 H 4.0-11.0 RBC 5.28 4.60-6.20 [...] Jun 22, 2024 05:51 PM Reporting Lab: [facility] [address] Performing Lab: [facility] [address] CREATININE 0.7 mg/dL 0.7-1.2 UREA NITROGEN 17 [...] Jun 21, 2024 05:45 PM Reporting Lab: [facility] [address] Performing Lab: [facility] [address] URINE COLOR YELLOW SPECIFIC GRAVITY 1.041 H [...] Jun 21, 2024 06:07 PM Reporting Lab: [facility] [address] Performing Lab: [facility] [address] POC CREATININE 1.1 mg/dL 0.6-1.3 Jun 21, 2024 05:[address] [facility] POC ABG/LACTATE Specimen Type: VENOUS BLOOD No comment entered. Ordering Provider: DELIA MARTINEZ Report Released Date/Time: Jun 21, 2024 06:07 PM Reporting Lab: [facility] [address] Performing Lab: [facility] [address] POC PH 7.470 H 7.31-7.41 POC PCO2 [...] Jun 21, 2024 05:30 PM Reporting Lab: [facility] [address] Performing Lab: [facility] [address] .INR 1.2 H 0.8-1.1 .PT 13.9 s H 9.4-12.5 Jun 21, 2024 05:[address] [facility] LIPASE Specimen Type: PLASMA No comment entered. Ordering Provider: DELIA MARTINEZ Report Released Date/Time: Jun 21, 2024 05:30 PM Reporting Lab: [facility] [address] Performing Lab: [facility] [address] LIPASE 32 U/L <60 Jun 21, 2024 05:[address] [facility] EXTRA GOLD GEL TUBE Specimen Type: SERUM No comment entered. Ordering Provider: DELIA MARTINEZ Report Released Date/Time: Jun 21, 2024 05:41 PM Reporting Lab: [facility] [address] Performing Lab: [facility] [address] EXTRA GOLD GEL TUBE RECEIVED Jun 21, 2024 05:[address] [facility] COMPREHENSIVE METABOLIC PANEL+MG Specimen Type: PLASMA No comment entered. Ordering Provider: DELIA MARTINEZ Report Released Date/Time: Jun 21, 2024 05:30 PM Reporting Lab: [facility] [address] Performing Lab: [facility] [address] CREATININE 0.9 mg/dL 0.7-1.2 UREA NITROGEN 29 [...] Jun 21, 2024 05:30 PM Reporting Lab: [facility] [address] Performing Lab: [facility] [address] WBC 21.3 H 4.0-11.0 RBC 5.48 4.60-6.20 [...] 2024 08:30 AM [facility] [...] 18, 2024 06:15 PM CHEST 1 VIEW: MEGFLACA YAMIL [id number] -1950 M Exm Date: JUL 18, 2024@18:15 Req Phys: LEISA GOLDEN Loc: 07-18-2024@19:00 Img Loc: MAIN X-RAY Service: [facility]IMARY [place] [address] (Case [id number] COMPLETE) CHEST 1 VIEW (RAD Detailed) CPT:37674 Proc Modifiers : PORTABLE EXAM Reason for Study: SOB Clinical History: [place] IS NOT under investigation for COVID-19 or is COVID-19 negative 73 yo with SOB Responsible provider name and phone number to notify for critical findings if other than user placing the order and pager listed below: User placing orders pager: [phone] LAST CREATININE 1.2 (07/17/24) Report Status: Verified Date Reported: JUL 18, 2024 Date Verified: JUL 18, 2024 Logistics Vice President E-Sig:/ES/CARLOS A CUNNINGHAM DO Report: EXAMINATION: CHEST 1 VIEW Reason for Study: SOB IS NOT under investigation for COVID-19 or is COVID-19 negative 73 yo with SOB Responsible provider name and phone number to notify for critical findings if other than user placing the order and pager listed below: User placing orders pager: [phone] LAST CREATININE 1.2 (07/17/24) SOB TECHNIQUE: Single [...] Interpreting Staff: CARLOS A CUNNINGHAM DO, RADIOLOGIST (Logistics Vice President) /[facility] CARLOS A CUNNINGHAM [facility] Jul 16, 2024 07:[address] [facility] [address] ABDOMEN/PELVIS: FLACA WEAVER [id number] -1950 M Exm Date: JUL 16, 2024@07:49 Req Phys: JATINDER CABRERA Loc: 07-17-2024@09:02 Img Loc: OUTSOURCE CT Service: Unknown (Case [id number] COMPLETE) [facility] CT ABDOMEN/PELVIS (CT Detailed) CPT:53191 Reason for Study: outside study Clinical History: outside study Report Status: Electronically Filed Date Reported: JUL 17, 2024 Report: This is an outside Imaging study and/or report imported for continuity of patient care. This Imaging study and/or report was not reviewed or verified by a [place] Radiologist. Impression: This is an outside Imaging study and/or report imported for continuity of patient care. This Imaging study and/or report was not reviewed or verified by a [place] Radiologist. Primary Diagnostic Code: VERIFIED BY: / *ELECTRONICALLY FILED* [facility] Jul 13, 2024 09:[address] [facility] [address] ABDOMEN/PELVIS: FLACA WEAVER [id number] -1950 M Exm Date: JUL 13, 2024@09:41 Req Phys: JATINDER CABRERA Loc: 07-17-2024@09:08 Img Loc: OUTSOURCE CT Service: Unknown (Case [id number] COMPLETE) NON [facility] CT ABDOMEN/PELVIS (CT Detailed) CPT:27196 Reason for Study: outside study Clinical History: outside study Report Status: Electronically Filed Date Reported: JUL 17, 2024 Report: This is an outside Imaging study and/or report imported for continuity of patient care. This Imaging study and/or report was not reviewed or verified by a [place] Radiologist. Impression: This is an outside Imaging study and/or report imported for continuity of patient care. This Imaging study and/or report was not reviewed or verified by a [place] Radiologist. Primary Diagnostic Code: VERIFIED BY: / *ELECTRONICALLY FILED* [facility] Jul 08, 2024 10:09 AM CHEST 2 VIEWS PA AND LAT: FLACA WEAVER [id number] -1950 M Exm Date: JUL 08, 2024@10:09 Req Phys: KATELYNN PERSON Pat Loc: [facility]/07-08-2024@11:49 Img Loc: MAIN X-RAY Service: [facility] [address] (Case 24 COMPLETE) CHEST 2 VIEWS PA AND LAT (RAD Detailed) CPT:40710 Reason for Study: Uptrending WBC, POD 5 [...] 08, 2024 Date Verified: JUL 08, 2024 Logistics Vice President E-Sig: Report: CHEST 2 VIEWS PA AND [...] cardiopulmonary disease. READING PHYSICIAN: Sarbjit Vaughn M.D. -[id number] 07/08/2024 12:46 EST [facility] National Teleradiology Program [phone] (For Medical Practitioner Use Only) Attention Patients / Veterans: If you have questions or concerns about these test results, please contact your ordering provider or primary care team. Primary Interpreting Staff: RADIOLOGY,OUTSIDE SERVICE, Staff Physician / RADIOLOGY,OUTSIDE SERVICE [facility] Jul 08, 2024 10:[address] (AP) ABDOMEN/PELVIS W CONTRAST: FLACA WEAVER [id number] -1950 M Exm Date: JUL 08, 2024@10:00 Req Phys: KATELYNN PERSON [facility] Loc: [facility]/07-08-2024@12:07 Img Loc: CT IMAGING Service: [place] [address] (Case [id number] COMPLETE) CT (AP) ABDOMEN/PELVIS W CONTRAST(CT Detailed) CPT:78214 Contrast Media : Non-ionic Iodinated Reason for [...] PLASMA .CREAT EGFR(CKD-E >90 Ref: >=60 Allergies: ([place] only) TERAZOSIN (Mar 13, 2015) Report Status: Verified Date Reported: JUL 08, 2024 Date Verified: JUL 08, 2024 Logistics Vice President E-Sig: Report: CT (AP) ABDOMEN/PELVIS W CONTRAST [...] as noted above READING PHYSICIAN: Celestino Blanc -[id number] 07/08/2024 13:04 EST [facility] National Aipairadiology Program [phone] (For Medical Practitioner Use Only) Attention Patients / Veterans: If you have questions or concerns about these test results, please contact your ordering provider or primary care team. Primary Interpreting Staff: RADIOLOGY,OUTSIDE SERVICE, Staff Physician / RADIOLOGY,OUTSIDE SERVICE [facility] Jun 22, 2024 11:49 AM ABSCESS DRAIN PLACEMENT PERITONEAL (P): FLACA WEAVER [id number] -1950 M Exm Date: JUN 22, 2024@11:49 Req Phys: ADINAANGELA AMARO Loc: 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 please place abscess drain. Contact number for responsible provider who can be reached for any questions or notifications of critical findings: [phone] n/a LAST CREATININE 0.9 (06/21/24) Report Status: Verified Date Reported: JUN 22, 2024 Date Verified: JUN 22, 2024 Logistics Vice President E-Sig:/ES/LISA PENDLETON MD Report: PROCEDURES: Placement of [...] anesthesia. Using real-time CT fluoroscopy, a 5 [place] Juristat centesis catheter was advanced into the collection in the left pelvis. A wire was coiled in the collection. The tract into the collection was dilated to accommodate the 12 Palauan locking pigtail drainage catheter. There was return [...] Primary Interpreting Staff: LISA PENDLETON MD, RADIOLOGIST (Logistics Vice President) /JRT LISA PENDLETON [facility] Jun 22, 2024 11:[address] NEEDLE PLACEMENT (P): FLACA WEAVER [id number] -1950 M Exm Date: JUN 22, 2024@11:48 Req Phys: ANGELA HOLDEN [facility] Loc: [facility]/06-22-2024@17:14 Img Loc: CT IMAGING Service: [place] [address] (Case [id number] COMPLETE) CT SCAN FOR NEEDLE PLACEMENT (CT Detailed) CPT:16928 Reason for Study: l pelvic abscess drain Clinical History: Report Status: Verified Date Reported: JUN 22, 2024 Date Verified: JUN 22, 2024 Logistics Vice President E-Sig:/ES/LISA PENDLETON MD Report: PROCEDURES: Placement of [...] anesthesia. Using real-time CT fluoroscopy, a 5 Palauan Spectafyesis catheter was advanced into the collection in the left pelvis. A wire was coiled in the collection. The tract into the collection was dilated to accommodate the 12 [place]an locking pigtail drainage catheter. There was return [...] Primary Interpreting Staff: LISA PENDLETON MD, RADIOLOGIST (Logistics Vice President) /JRT LISA PENDLETON [facility] Jun 21, 2024 06:[address] (AP) ABDOMEN/PELVIS (P): FLACA WEAVER [id number] -1950 M Exm Date: JUN 21, 2024@18:09 Req Phys: DELIA MARTINEZ Loc: [facility] EM[facility]Y [facility]PT WALK-IN (Re Img Loc: CT IMAGING Service: [place] [address] (Case [id number] COMPLETE) CT (AP) ABDOMEN/PELVIS W CONTRAST(CT Detailed) CPT:07030 Contrast Media : Non-ionic Iodinated Reason for [...] PLASMA .CREAT EGFR(CKD-E >90 Ref: >=60 Allergies: ([place] only) TERAZOSIN (Mar 13, 2015) Defer to [...] 21, 2024 Date Verified: JUN 21, 2024 Logistics Vice President E-Sig:/ES/CARLOS A CUNNINGHAM DO Report: EXAMINATION: CT [...] Interpreting Staff: CARLOS A CUNNINGHAM DO, RADIOLOGIST (Logistics Vice President) /CARLOS A ROWELL [facility] [...] Reporting Lab: [facility] [CLIA# [id number]] [place] [address] Accession [UID]: [id number] [[id number]] Received: Jul 16, 2024@14:41 Collection sample: BLOOD Collection date: Jul 16, 2024 14:07 Provider: LEISA GOLDEN Comment on specimen: R AC, RECEIVED 2 BLOOD CULTURE BOTTLES Test(s) ordered: CULTURE & SUSCEPTIBILITY...... completed: Jul 22, 2024 * BACTERIOLOGY FINAL REPORT => Jul 22, 2024 13:39 TECH CODE: [id number] CULTURE RESULTS: NO GROWTH 5 DAYS Bacteriology Remark(s): THIS REPORT IS FINAL =--=--=--=--=--=--=--=--=--= --=--=--=--=--=--=--=--=--=- -=--=--=--=--=--=--=-- Performing Laboratory: Bacteriology Report Performed By: [facility] [CLIA# [id number]] [place] [address] [facility] Jul 16, 2024 01:54 PM LR MICROBIOLOGY RE PORT: Reporting Lab: [facility] [CLIA# [id number]] [place] [address] Accession [UID]: [id number] [[id number]] Received: Jul 16, 2024@14:41 Collection sample: BLOOD Collection date: Jul 16, 2024 13:54 Provider: LEISA GOLDEN Comment on specimen: L AC, RECEIVED 2 BLOOD CULTURE BOTTLES Test(s) ordered: CULTURE & SUSCEPTIBILITY...... completed: Jul 22, 2024 * BACTERIOLOGY FINAL REPORT => Jul 22, 2024 13:39 TECH CODE: [id number] CULTURE RESULTS: NO GROWTH 5 DAYS Bacteriology Remark(s): THIS REPORT IS FINAL =--=--=--=--=--=--=--=--=--= --=--=--=--=--=--=--=--=--=- -=--=--=--=--=--=--=-- Performing Laboratory: Bacteriology Report Performed By: [facility] [CLIA# [id number]] [place] [address] [facility] Jul 03, 2024 05:59 AM LR SURGICAL PATHOL OGY REPORT: LOCAL TITLE: LR SURGICAL PATHOLOGY REPORT STANDARD TITLE: PATHOLOGY REPORT DATE OF NOTE: JUL 06, 2024@10:40:48 ENTRY DATE: JUL 06, 2024@10:40:48 AUTHOR: EDUARDO PALOMARES EXP COSIGNER: URGENCY: STATUS: COMPLETED $APHDR Reporting Lab: [facility] [CLIA# [id number]] [place] [address] - - - - - - - [...] - PATHOLOGY REPORT Accession No. [id number] - - - - - - - [...] - PATHOLOGY REPORT Accession No. [id number] - - - - - - - [...] Second circumferential surgical margin, en face; E-F: Dual Rate Dealer diverticula; G: Dual Rate Dealer section of mesentery; H: Random patient support representative section of additional adipose tissue [...] One colonic tissue ring, bisected transversely. [facility] Microscopic examination performed. DIAGNOSIS: 1. Colon, sigmoid, sigmoidectomy-- - Diverticulosis with perforation and focal abscess formation 2. Colon, anastomotic rings, excision-- - Viable colonic mucosa without diagnostic abnormality /es/ EDUARDO PALOMARES MD STAFF PATHOLOGIST Signed Jul 06, 2024@10:40 Performing Laboratory: Surgical Pathology Report Performed By: [facility] [CLIA# [id number]] [place] [address] $FTR - - - - - - [...] - - FLACA WEAVER STANDARD FORM 515 ID:[id number] SEX:M :1950 AGE: 73 LOC:81121 ADM:Jun DX:DIVERTICULITIS PCP: Jatinder Cabrera /alexi/ EDUARDO PALOMARES MD STAFF PATHOLOGIST Signed: 07/06/2024 10:[address] [facility] Jun 22, 2024 01:15 PM LR MICROBIOLOGY RE PORT: Reporting Lab: [facility] [CLIA# [id number]] [place] [address] Accession [UID]: [id number] [[id number]] Received: Jun 22, 2024@13:38 Collection sample: FLUID Collection date: Jun 22, 2024 13:15 Provider: ANGELA HOLDEN Comment on specimen: LLQ ABSCESS, RECEIVED IN ANAEROBIC TRANSPORT VIAL Test(s) ordered: GRAM STAIN.................... completed: Jun 22, 2024 15:03 CULTURE & SUSCEPTIBILITY...... completed: Jun 25, 2024 * BACTERIOLOGY FINAL REPORT => Jun 25, 2024 10:56 TECH CODE: [id number] GRAM STAIN: DIRECT SMEAR of specimen before [...] Performed By: [facility] [CLIA# [id number]] [place] [address] [facility] Jun 22, 2024 01:15 PM LR MICROBIOLOGY RE PORT: Reporting Lab: [facility] [CLIA# [id number]] [place] [address] Accession [UID]: [id number] [[id number]] Received: Jun 22, 2024@13:38 Collection sample: FLUID Collection date: Jun 22, 2024 13:15 Provider: ANGELA HOLDEN Comment on specimen: LLQ ABSCESS, RECEIVED IN ANAEROBIC TRANSPORT VIAL Test(s) ordered: ANAEROBIC CULTURE............. completed: Jun 28, 2024 * BACTERIOLOGY FINAL REPORT => Jun 28, 2024 10:08 TECH CODE: [id number] CULTURE RESULTS: HEAVY GROWTH MIXED ANAEROBES Comment: [...] Performed By: [facility] [CLIA# [id number]] [place] [address] [facility] Jun 21, 2024 06:12 PM LR MICROBIOLOGY RE PORT: Reporting Lab: [facility] [IA# [id number]] [place] [address] Accession [UID]: [id number] [[id number]] Received: Jun 21, 2024@18:12 Collection sample: BLOOD [...] Performed By: [facility] [CLIA# [id number]] [place] [address] [facility] Jun 21, 2024 06:11 PM LR MICROBIOLOGY RE PORT: Reporting Lab: [facility] [IA# [id number]] [place] [address] Accession [UID]: [id number] [[id number]] Received: Jun 21, 2024@18:11 Collection sample: BLOOD Collection date: Jun 21, 2024 18:11 Provider: DELIA MARTINEZ Comment on specimen: DAMARIS, RECEIVED 2 BLOOD CULTURE BOTTLES Test(s) ordered: CULTURE & SUSCEPTIBILITY...... completed: Jun 27, 2024 * BACTERIOLOGY FINAL REPORT => Jun 27, 2024 14:14 TECH CODE: [id number] CULTURE RESULTS: NO GROWTH 5 DAYS Bacteriology Remark(s): THIS REPORT IS FINAL =--=--=--=--=--=--=--=--=--= --=--=--=--=--=--=--=--=--=- -=--=--=--=--=--=--=-- Performing Laboratory: Bacteriology Report Performed By: [facility] [CLIA# [id number]] [place] [address] [facility] Encounter Notes: All [...] Patient Name: FLACA WEAVER Patient Primary [address] [address] [place] [id number] Patient Primary Phone: [phone] Patient : 1950 Patient Age: 73 Caller/Recipient Relation to Patient: Self Emergency Contact: NIMO PIÑA Triage Summary Conducted triage/discussed symptoms Utilized the Triage Tool: No Chief Complaint: ostomy issues Nurse's Recommendation / WHEN: 911 Nurse's Recommendation / WHERE: 911 Patient Disposition Patient/Caregiver agrees to plan of care: No Patient WHERE: ED Other Other - Patient Where Disposition: [address] [address] Patient WHEN: Now Other - Patient When Disposition: four horse hitch driver will bring him now Patient is Urgent [...] States he is just calling to inform ME that he wants to go now with four horse hitch driver to local ER for evaluation. advised for safety to call 911 now, he verbalized understanding of safety risks and sill will have four horse hitch driver bring him to ER now. has no further questions. Triage deferred as states he is just calling to inform ME of his plans not for a triage. Clinical Contact Center Codes Clinic/Location: V23 [facility] PHONE CCC RN IMPORTANT: This note was created by [facility] Clinical Contact Center staff. Please do not alert the staff member by adding them as a signer for future communications. Alerts are not monitored by this user. /alexi/ NEL STONE RN REGISTERED NURSE Signed: 07/13/2024 06:46 Receipt Acknowledged By: 07/16/2024 14:29 /alexi/ Jatinder Cabrera MD Physician 07/13/2024 07:58 /es/ GUERITA AGUILA RN REGISTERED NURSE NEL STONE [facility]
[2024-08-01 07:31] LABS: Lactate* 2.8 mmol/L (0.5-1.9)
--- OUTSIDE RECORDS SUMMARY | 2024-08-01 07:37 | XMS_ITS | Encounter Summary ---
Author Name [facility] [facility] [place] Address [address] [place] [address] Care Team Providers Care Telephone Information Supervisor Name Role Phone JATINDER CABRERA Primary [...] PART A Sep 29, 2016 PART A [phone] JUDY WEAVER PATIENT Selected Encounter This section [...] 13, 2024 08:15 AM AMBULATORY - NONE [facility] Jul 16, 2024 08:40 AM AMBULATORY - NONE [facility] Jul 16, 2024 11:30 AM AMBULATORY - NONE [facility] Active, Pending, and [...] of theEncounter. The data comes from all [facility]. Test Date/Time Test Type Test [...] Range Comment Jul 21, 2024 10:38 AM [facility] BASIC METABOLIC PANEL+MG Specimen Type: PLASMA No comment entered. Ordering Provider: SARAI GOLDEN Report Released Date/Time: Jul 20, 2024 06:50 PM Reporting Lab: [facility] [address] Performing Lab: [facility] [address] CREATININE 0.8 mg/dL 0.7-1.2 UREA NITROGEN 31 mg/dL H 8-26 GLUCOSE 120 mg/dL H 70-100 SODIUM 125 mmol/L L 136-145 POTASSIUM 4.4 mmol/L 3.5-5.1 CHLORIDE 100 mmol/L 98-107 CO2 17 mmol/L L 22-29 CALCIUM 9.6 mg/dL 8.4-10.2 MAGNESIUM 1.9 mg/dL 1.6-2.6 ANION GAP 8 mmol/L 5-15 .CREAT EGFR(CKD-EPI) >90 >60 Jul 21, 2024 10:38 AM [facility] CBC Specimen Type: BLOOD No comment entered. Ordering Provider: SARAI GOLDEN Report Released Date/Time: Jul 20, 2024 06:50 PM Reporting Lab: [facility] [address] Performing Lab: [facility] [address] WBC 16.0 H 4.0-11.0 RBC 5.16 4.60-6.20 HGB 15.8 g/dL 13.5-17.9 HCT 45.5 41.0-54.0 MCV 88.2 fL 80.0-100.0 MCH 30.6 pg 27.0-33.0 MCHC 34.7 g/dL 32.0-37.5 PLT 428 H 150-400 MPV 10.8 fL 9.1-13.0 RDW 13.6 11.5-14.5 Jul 20, 2024 01:00 PM [facility] SODIUM,URINE RANDOM Specimen Type: URINE No comment entered. Ordering Provider: SARAI GOLDEN Report Released Date/Time: Jul 20, 2024 08:22 AM Reporting Lab: [facility] [address] Performing Lab: [facility] [address] SODIUM,URINE RANDOM <20 mmol/L Jul 20, 2024 01:00 PM [facility] OSMOLALITY,URINE Specimen Type: URINE No comment entered. Ordering Provider: SARAI GOLDEN Report Released Date/Time: Jul 20, 2024 08:22 AM Reporting Lab: [facility] [address] Performing Lab: [facility] [address] OSMOLALITY,URIN E 648 mosm/kg 500-800 Jul 20, 2024 06:45 AM [facility] BASIC METABOLIC PANEL+MG Specimen Type: PLASMA No comment entered. Ordering Provider: SARAI GOLDEN Report Released Date/Time: Jul 19, 2024 06:13 PM Reporting Lab: [facility] [address] Performing Lab: [facility] [address] CREATININE 0.8 mg/dL 0.7-1.2 UREA NITROGEN 36 mg/dL H 8-26 GLUCOSE 111 mg/dL H 70-100 SODIUM 121 mmol/L L 136-145 POTASSIUM 4.1 mmol/L 3.5-5.1 CHLORIDE 99 mmol/L 98-107 CO2 14 mmol/L L 22-29 CALCIUM 9.5 mg/dL 8.4-10.2 MAGNESIUM 1.8 mg/dL 1.6-2.6 ANION GAP 8 mmol/L 5-15 .CREAT EGFR(CKD-EPI) >90 >60 Jul 20, 2024 06:43 AM [facility] CBC & DIFF Specimen Type: BLOOD Comment: Automated Differential Performed Ordering Provider: SARAI GOLDEN Report Released Date/Time: Jul 19, 2024 06:13 PM Reporting Lab: [facility] [address] Performing Lab: [facility] [address] WBC 16.6 H 4.0-11.0 RBC 4.96 4.60-6.20 [...] H 0.0-0.1 Jul 20, 2024 05:30 AM [facility] OSMOLALITY,SERUM Specimen Type: SERUM No comment entered. Ordering Provider: SRAAI GOLDEN Report Released Date/Time: Jul 20, 2024 09:47 AM Reporting Lab: [facility] [address] Performing Lab: [facility] [address] OSMOLALITY,SERU M 266 mosm/kg L 276-305 Jul 19, 2024 08:57 AM [facility] BASIC METABOLIC PANEL+MG Specimen Type: PLASMA No comment entered. Ordering Provider: SARAI GOLDEN Report Released Date/Time: Jul 18, 2024 10:24 PM Reporting Lab: [facility] [address] Performing Lab: [facility] [address] CREATININE 1.0 mg/dL 0.7-1.2 UREA NITROGEN 40 mg/dL H 8-26 GLUCOSE 104 mg/dL H 70-100 SODIUM 129 mmol/L L 136-145 POTASSIUM 3.3 mmol/L L 3.5-5.1 CHLORIDE 104 mmol/L 98-107 CO2 16 mmol/L L 22-29 CALCIUM 8.0 mg/dL L 8.4-10.2 MAGNESIUM 1.7 mg/dL 1.6-2.6 ANION GAP 9 mmol/L 5-15 .CREAT EGFR(CKD-EPI) 80 >60 Jul 19, 2024 08:57 AM [facility] CBC Specimen Type: BLOOD No comment entered. Ordering Provider: SARAI GOLDEN Report Released Date/Time: Jul 18, 2024 10:24 PM Reporting Lab: [facility] [address] Performing Lab: [facility] [address] WBC 17.3 H 4.0-11.0 RBC 4.83 4.60-6.20 HGB 14.8 g/dL 13.5-17.9 HCT 42.6 41.0-54.0 MCV 88.2 fL 80.0-100.0 MCH 30.6 pg 27.0-33.0 MCHC 34.7 g/dL 32.0-37.5 PLT 456 H 150-400 MPV 10.8 fL 9.1-13.0 RDW 13.7 11.5-14.5 Jul 17, 2024 06:55 PM [facility] PHOSPHORUS Specimen Type: PLASMA No comment entered. Ordering Provider: SARAI GOLDEN Report Released Date/Time: Jul 17, 2024 01:54 PM Reporting Lab: [facility] [address] Performing Lab: [facility] [address] PHOSPHORUS 2.9 mg/dL 2.3-4.3 Jul 17, 2024 06:55 PM [facility] BASIC METABOLIC PANEL+MG Specimen Type: PLASMA No comment entered. Ordering Provider: SARAI GOLDEN Report Released Date/Time: Jul 17, 2024 01:54 PM Reporting Lab: [facility] [address] Performing Lab: [facility] [address] CREATININE 1.2 mg/dL 0.7-1.2 UREA NITROGEN 62 mg/dL H 8-26 GLUCOSE 116 mg/dL H 70-100 SODIUM 128 mmol/L L 136-145 POTASSIUM 3.8 mmol/L 3.5-5.1 CHLORIDE 100 mmol/L 98-107 CO2 16 mmol/L L 22-29 CALCIUM 9.3 mg/dL 8.4-10.2 MAGNESIUM 2.1 mg/dL 1.6-2.6 ANION GAP 12 mmol/L 5-15 .CREAT EGFR(CKD-EPI) 64 >60 Jul 17, 2024 07:00 AM [facility] CBC & DIFF Specimen Type: BLOOD Comment: Manual Differential Performed Ordering Provider: SARAI GOLDEN Report Released Date/Time: Jul 16, 2024 04:52 PM Reporting Lab: [facility] [address] Performing Lab: [facility] [address] WBC 18.9 H 4.0-11.0 RBC 5.55 4.60-6.20 [...] MORPHOLOGY PRESENT Jul 17, 2024 07:00 AM [facility] ALBUMIN Specimen Type: PLASMA No comment entered. Ordering Provider: SARAI GOLDEN Report Released Date/Time: Jul 16, 2024 12:12 PM Reporting Lab: [facility] [address] Performing Lab: [facility] [address] ALBUMIN 4.3 g/dL 3.5-5.0 Jul 17, 2024 07:00 AM [facility] COMPREHENSIVE METABOLIC PANEL+MG Specimen Type: PLASMA No comment entered. Ordering Provider: SARAI GOLDEN Report Released Date/Time: Jul 16, 2024 04:52 PM Reporting Lab: [facility] [address] Performing Lab: [facility] [address] CREATININE 1.3 mg/dL H 0.7-1.2 UREA NITROGEN [...] L >60 Jul 16, 2024 07:10 PM [facility] LACTIC ACID Specimen Type: PLASMA No comment entered. Ordering Provider: SARAI GOLDEN Report Released Date/Time: Jul 16, 2024 12:12 PM Reporting Lab: [facility] [address] Performing Lab: [facility] [address] LACTIC ACID 0.9 mmol/L 0.5-2.2 Jul 16, 2024 02:14 PM [facility] MRSA SURVL NARES DNA Specimen Type: NARES No comment entered. Ordering Provider: SARAI GOLDEN Report Released Date/Time: Jul 16, 2024 12:12 PM Reporting Lab: [facility] [address] Performing Lab: [facility] [address] MRSA SURVL NARES DNA NEGATIVE Negative Jul 16, 2024 02:10 PM [facility] LACTIC ACID Specimen Type: PLASMA No comment entered. Ordering Provider: SARAI GOLDEN Report Released Date/Time: Jul 16, 2024 12:12 PM Reporting Lab: [facility] [address] Performing Lab: [facility] [address] LACTIC ACID 0.9 mmol/L 0.5-2.2 Jul 16, 2024 02:08 PM [facility] COMPREHENSIVE METABOLIC PANEL+MG Specimen Type: PLASMA No comment entered. Ordering Provider: SARAI GOLDEN Report Released Date/Time: Jul 16, 2024 12:12 PM Reporting Lab: [facility] [address] Performing Lab: [facility] [address] CREATININE 2.0 mg/dL H 0.7-1.2 UREA NITROGEN [...] L >60 Jul 16, 2024 02:08 PM [facility] CBC & DIFF Specimen Type: BLOOD Comment: Manual Differential Performed Ordering Provider: SARAI GOLDEN Report Released Date/Time: Jul 16, 2024 12:12 PM Reporting Lab: [facility] [address] Performing Lab: [facility] [address] WBC 19.7 H 4.0-11.0 RBC 5.39 4.60-6.20 [...] MORPHOLOGY PRESENT Jul 10, 2024 07:16 AM [facility] PHOSPHORUS Specimen Type: PLASMA No comment entered. Ordering Provider: JUANCARLOS ECHOLS Report Released Date/Time: Jul 09, 2024 12:23 PM Reporting Lab: [facility] [address] Performing Lab: [facility] [address] PHOSPHORUS 3.0 mg/dL 2.3-4.3 Jul 10, 2024 07:16 AM [facility] BASIC METABOLIC PANEL+MG Specimen Type: PLASMA No comment entered. Ordering Provider: JUANCARLOS ECHOLS S Report Released Date/Time: Jul 09, 2024 12:23 PM Reporting Lab: [facility] [address] Performing Lab: [facility] [address] CREATININE 0.7 mg/dL 0.7-1.2 UREA NITROGEN 27 [...] PM Reporting Lab: [facility] [address] Performing Lab: [facility] [address] WBC 18.8 H 4.0-11.0 RBC 5.08 4.60-6.20 [...] PM Reporting Lab: [facility] [address] Performing Lab: [facility] [address] WBC 15.3 H 4.0-11.0 RBC 4.91 4.60-6.20 [...] AM Reporting Lab: [facility] [address] Performing Lab: [facility] [address] URINE COLOR YELLOW SPECIFIC GRAVITY >1.050 H [...] PM Reporting Lab: [facility] [address] Performing Lab: [facility] [address] WBC 17.5 H 4.0-11.0 RBC 4.88 4.60-6.20 [...] PM Reporting Lab: [facility] [address] Performing Lab: [facility] [address] PHOSPHORUS 2.6 mg/dL 2.3-4.3 Jul 08, 2024 09:54 AM [facility] BASIC METABOLIC PANEL+MG Specimen Type: PLASMA Comment: Specimen received in Lab at: [id number] Ordering Provider: JUANCARLOS ECHOLS Report Released Date/Time: Jul 07, 2024 04:49 PM Reporting Lab: [facility] [address] Performing Lab: [facility] [address] CREATININE 0.9 mg/dL 0.7-1.2 UREA NITROGEN 26 [...] PM Reporting Lab: [facility] [address] Performing Lab: [facility] [address] C DIFF TOX B GENE PCR NEGATIVE Negative Jul 07, 2024 07:41 AM [facility] PHOSPHORUS Specimen Type: PLASMA No comment entered. Ordering Provider: JEVON ZAZUETA Report Released Date/Time: Jul 06, 2024 03:44 PM Reporting Lab: [facility] [address] Performing Lab: [facility] [address] PHOSPHORUS 3.1 mg/dL 2.3-4.3 Jul 07, 2024 07:41 AM [facility] BASIC METABOLIC PANEL+MG Specimen Type: PLASMA No comment entered. Ordering Provider: JEVON ZAZUETA Report Released Date/Time: Jul 06, 2024 03:44 PM Reporting Lab: [facility] [address] Performing Lab: [facility] [address] CREATININE 0.9 mg/dL 0.7-1.2 UREA NITROGEN 20 [...] PM Reporting Lab: [facility] [address] Performing Lab: [facility] [address] WBC 21.2 H 4.0-11.0 RBC 5.09 4.60-6.20 [...] PM Reporting Lab: [facility] [address] Performing Lab: [facility] [address] WBC 18.0 H 4.0-11.0 RBC 4.83 4.60-6.20 [...] PM Reporting Lab: [facility] [address] Performing Lab: [facility] [address] PHOSPHORUS 3.6 mg/dL 2.3-4.3 Jul 06, 2024 07:21 AM [facility] BASIC METABOLIC PANEL+MG Specimen Type: PLASMA No comment entered. Ordering Provider: JEVON ZAZUETA Report Released Date/Time: Jul 05, 2024 01:22 PM Reporting Lab: [facility] [address] Performing Lab: [facility] [address] CREATININE 0.7 mg/dL 0.7-1.2 UREA NITROGEN 12 [...] AM Reporting Lab: [facility] [address] Performing Lab: [facility] [address] MAGNESIUM 2.0 mg/dL 1.6-2.6 Jul 05, 2024 07:17 AM [facility] PHOSPHORUS Specimen Type: PLASMA No comment entered. Ordering Provider: JUANCARLOS ECHOLS S Report Released Date/Time: Jul 04, 2024 09:39 AM Reporting Lab: [facility] [address] Performing Lab: [facility] [address] PHOSPHORUS 2.0 mg/dL L 2.3-4.3 Jul 05, 2024 07:17 AM [facility] BASIC METABOLIC PANEL+MG Specimen Type: PLASMA No comment entered. Ordering Provider: JUANCARLOS ECHOLS S Report Released Date/Time: Jul 04, 2024 09:39 AM Reporting Lab: [facility] [address] Performing Lab: [facility] [address] CREATININE 0.7 mg/dL 0.7-1.2 UREA NITROGEN 12 [...] AM Reporting Lab: [facility] [address] Performing Lab: [facility] [address] WBC 18.3 H 4.0-11.0 RBC 4.49 L [...] PM Reporting Lab: [facility] [address] Performing Lab: [facility] [address] PHOSPHORUS 2.8 mg/dL 2.3-4.3 Jul 04, 2024 07:17 AM [facility] BASIC METABOLIC PANEL+MG Specimen Type: PLASMA No comment entered. Ordering Provider: GABINO CAMERON Report Released Date/Time: Jul 03, 2024 06:31 PM Reporting Lab: [facility] [address] Performing Lab: [facility] [address] CREATININE 0.7 mg/dL 0.7-1.2 UREA NITROGEN 16 mg/dL 8-26 GLUCOSE 129 mg/dL H 70-100 SODIUM 137 mmol/L 136-145 POTASSIUM 3.7 mmol/L 3.5-5.1 CHLORIDE 107 mmol/L 98-107 CO2 22 mmol/L 22-29 CALCIUM 9.0 mg/dL 8.4-10.2 MAGNESIUM 1.9 mg/dL 1.6-2.6 ANION GAP 8 mmol/L 5-15 .CREAT EGFR(CKD-EPI) >90 >60 Jul 04, 2024 07:16 AM [facility] CBC Specimen Type: BLOOD No comment entered. Ordering Provider: GABINO CAMERON Report Released Date/Time: Jul 03, 2024 06:31 PM Reporting Lab: [facility] [address] Performing Lab: [facility] [address] WBC 20.6 H 4.0-11.0 RBC 4.63 4.60-6.20 [...] PM Reporting Lab: [facility] [address] Performing Lab: [facility] [address] WBC 20.6 H 4.0-11.0 RBC 4.63 4.60-6.20 [...] PM Reporting Lab: [facility] [address] Performing Lab: [facility] [address] BNP 292 pg/mL H <99 Jul 03, 2024 10:32 PM [facility] FINGERSTICK GLUCOSE Specimen Type: BLOOD Comment: Save Result Nurse Notified Ordering Provider: KATELYNN PERSON Report Released Date/Time: Jul 03, 2024 10:50 PM Reporting Lab: [facility] [address] Performing Lab: [facility] [address] FINGERSTICK GLUCOSE 126 mg/dL H 70-100 Jul 03, 2024 05:33 PM [facility] FINGERSTICK GLUCOSE Specimen Type: BLOOD Comment: Save Result Nurse Notified Ordering Provider: KATELYNN PERSON Report Released Date/Time: Jul 03, 2024 05:46 PM Reporting Lab: [facility] [address] Performing Lab: [facility] [address] FINGERSTICK GLUCOSE 141 mg/dL H 70-100 Jul 03, 2024 02:31 PM [facility] POC ABG/ELECTROLYTES Specimen Type: ARTERIAL BLOOD Comment: FIO2 = 97% Patient Temp: 36.0 C Sample Type = ARTERIAL Ordering Provider: MAZIN ARREDONDO Report Released Date/Time: Jul 03, 2024 01:48 PM Reporting Lab: [facility] [address] Performing Lab: [facility] [address] POC PH 7.387 7.35-7.45 POC PCO2 34.4 [...] PM Reporting Lab: [facility] [address] Performing Lab: [facility] [address] POC PH 7.280 L 7.35-7.45 POC PCO2 [...] PM Reporting Lab: [facility] [address] Performing Lab: [facility] [address] URINE COLOR YELLOW SPECIFIC GRAVITY 1.031 1.003-1.03 [...] PM Reporting Lab: [facility] [address] Performing Lab: [facility] [address] WBC 15.8 H 4.0-11.0 RBC 5.11 4.60-6.20 [...] PM Reporting Lab: [facility] [address] Performing Lab: [facility] [address] CREATININE 0.8 mg/dL 0.7-1.2 UREA NITROGEN 13 [...] PM Reporting Lab: [facility] [address] Performing Lab: [facility] [address] WBC 15.5 H 4.0-11.0 RBC 4.93 4.60-6.20 [...] PM Reporting Lab: [facility] [address] Performing Lab: [facility] [address] CREATININE 0.7 mg/dL 0.7-1.2 UREA NITROGEN 16 [...] PM Reporting Lab: [facility] [address] Performing Lab: [facility] [address] WBC 14.9 H 4.0-11.0 RBC 5.09 4.60-6.20 [...] PM Reporting Lab: [facility] [address] Performing Lab: [facility] [address] WBC 16.9 H 4.0-11.0 RBC 5.28 4.60-6.20 [...] PM Reporting Lab: [facility] [address] Performing Lab: [facility] [address] CREATININE 0.7 mg/dL 0.7-1.2 UREA NITROGEN 17 [...] PM Reporting Lab: [facility] [address] Performing Lab: [facility] [address] URINE COLOR YELLOW SPECIFIC GRAVITY 1.041 H [...] PM Reporting Lab: [facility] [address] Performing Lab: [facility] [address] POC CREATININE 1.1 mg/dL 0.6-1.3 Jun 21, 2024 05:30 PM [facility] POC ABG/LACTATE Specimen Type: VENOUS BLOOD No comment entered. Ordering Provider: DELIA MARTINEZ Report Released Date/Time: Jun 21, 2024 06:07 PM Reporting Lab: [facility] [address] Performing Lab: [facility] [address] POC PH 7.470 H 7.31-7.41 POC PCO2 [...] PM Reporting Lab: [facility] [address] Performing Lab: [facility] [address] .INR 1.2 H 0.8-1.1 .PT 13.9 s H 9.4-12.5 Jun 21, 2024 05:24 PM [facility] EXTRA GOLD GEL TUBE Specimen Type: SERUM No comment entered. Ordering Provider: DELIA MARTINEZ Report Released Date/Time: Jun 21, 2024 05:41 PM Reporting Lab: [facility] [address] Performing Lab: [facility] [address] EXTRA GOLD GEL TUBE RECEIVED Jun 21, 2024 05:24 PM [facility] LIPASE Specimen Type: PLASMA No comment entered. Ordering Provider: DELIA MARTINEZ Report Released Date/Time: Jun 21, 2024 05:30 PM Reporting Lab: [facility] [address] Performing Lab: [facility] [address] LIPASE 32 U/L <60 Jun 21, 2024 05:24 PM [facility] COMPREHENSIVE METABOLIC PANEL+MG Specimen Type: PLASMA No comment entered. Ordering Provider: DELIA MARTINEZ Report Released Date/Time: Jun 21, 2024 05:30 PM Reporting Lab: [facility] [address] Performing Lab: [facility] [address] CREATININE 0.9 mg/dL 0.7-1.2 UREA NITROGEN 29 [...] PM Reporting Lab: [facility] [address] Performing Lab: [facility] [address] WBC 21.3 H 4.0-11.0 RBC 5.48 4.60-6.20 [...] Mar 23, 2016 CLINICAL WARNING [facility] Radiology Reports: +/- 30 [...] 18, 2024 06:15 PM CHEST 1 VIEW: FLYNN WEAVER [id number] -1950 M Exm Date: JUL 18, 2024@18:15 Req Phys: LEISA GOLDEN Pat Loc: 3ES/07-18-2024@19:00 Img Loc: MAIN X-RAY Service: PRIMARY [place]ARE [place] [address] (Case [id number] COMPLETE) CHEST 1 VIEW (RAD Detailed) CPT:23940 Proc Modifiers : PORTABLE EXAM Reason for Study: SOB Clinical History: IS NOT under investigation for COVID-19 or is COVID-19 negative 73 yo with SOB Responsible provider name and phone number to notify for critical findings if other than user placing the order and pager listed below: User placing orders pager: [phone] LAST CREATININE 1.2 (07/17/24) Report Status: Verified Date Reported: JUL 18, 2024 Date Verified: JUL 18, 2024 Blow Pit Operator E-Sig:/ES/CARLOS A CUNNINGHAM DO Report: EXAMINATION: CHEST 1 VIEW Reason for Study: SOB [place] IS NOT under investigation for COVID-19 or is COVID-19 negative 73 yo with SOB Responsible provider name and phone number to notify for critical findings if other than user placing the order and pager listed below: User placing orders pager: [phone] LAST CREATININE 1.2 (07/17/24) SOB TECHNIQUE: Single [...] Interpreting Staff: CARLOS A CUNNINGHAM DO, RADIOLOGIST (Blow Pit Operator) /[facility] CARLOS A CUNNINGHAM [facility] Jul 16, 2024 07:[address] [facility] CT ABDOMEN/PELVIS: FLYNN WEAVER [id number] -1950 M Exm Date: JUL 16, 2024@07:49 Req Phys: JATINDER CABRERA Loc: 07-17-2024@09:02 [facility] [place]: OUT[place] CT Service: Unknown (Case [id number] COMPLETE) NON [place] CT ABDOMEN/PELVIS (CT Detailed) CPT:67773 Reason for Study: outside study Clinical History: [...] *ELECTRONICALLY FILED* [facility] Jul 13, 2024 09:[address] [place] [address] ABDOMEN/PELVIS: FLYNN WEAVER [id number] -1950 M Exm Date: JUL 13, 2024@09:41 Req Phys: JATINDER CABRERA Loc: 3ES07-17-2024@09:08 Img Loc: OUTSOURCE CT Service: Unknown (Case [id number] COMPLETE) NON [facility] ABDOMEN/PELVIS (CT Detailed) CPT:33963 Reason for Study: outside study Clinical History: [...] *ELECTRONICALLY FILED* [facility] Jul 08, 2024 10:09 AM CHEST 2 VIEWS PA AND LAT: MEGFLYNN YAMIL [id number] -1950 M Exm Date: JUL 08, 2024@10:09 Req Phys: KATELYNN PERSON Loc: 2KG07-08-2024@11:49 Img Loc: MAIN X-RAY Service: [facility] [address] (Case 24 COMPLETE) CHEST 2 VIEWS PA AND LAT (RAD Detailed) CPT:38437 Reason for Study: Uptrending WBC, POD 5 [...] 08, 2024 Date Verified: JUL 08, 2024 Blow Pit Operator E-Sig: Report: CHEST 2 VIEWS PA [...] cardiopulmonary disease. READING PHYSICIAN: Sarbjit Vaughn M.D. -[id number] 07/08/2024 12:46 [facility] [phone] (For Medical Practitioner Use Only) Attention Patients / Veterans: If you have questions or concerns about these test results, please contact your ordering provider or primary care team. Primary Interpreting Staff: RADIOLOGY,OUTSIDE SERVICE, Staff Physician / RADIOLOGY,OUTSIDE SERVICE [facility] Jul 08, 2024 10:[address] (AP) ABDOMEN/PELVIS W CONTRAST: FLYNN WEAVER YAMIL [id number] -1950 M Exm Date: JUL 08, 2024@10:00 Req Phys: KATELYNN PERSON [facility] Loc: [facility]/07-08-2024@12:07 Img Loc: CT IMAGING Service: [place] [address] (Case 22 COMPLETE) CT (AP) ABDOMEN/PELVIS W CONTRAST(CT Detailed) CPT:11566 Contrast Media : Non-ionic Iodinated Reason for [...] PLASMA .CREAT EGFR(CKD-E >90 Ref: >=60 Allergies: ([place] only) TERAZOSIN (Mar 13, 2015) Report Status: Verified Date Reported: JUL 08, 2024 Date Verified: JUL 08, 2024 Blow Pit Operator E-Sig: Report: CT (AP) ABDOMEN/PELVIS W [...] as noted above READING PHYSICIAN: Celestino Blanc -[id number] 07/08/2024 13:04 [facility] [employer] [facility] [phone] (For Medical Practitioner Use Only) Attention Patients / Veterans: If you have questions or concerns about these test results, please contact your ordering provider or primary care team. Primary Interpreting Staff: RADIOLOGY,OUTSIDE SERVICE, Staff Physician / RADIOLOGY,OUTSIDE SERVICE [facility] Jun 22, 2024 11:49 AM ABSCESS DRAIN PLACEMENT PERITONEAL (P): FLYNN WEAVER [id number] -1950 M Exm Date: JUN 22, 2024@11:49 Req Phys: ANGELA HOLDEN Loc: [facility]/06-22-2024@17:14 Img Loc: INTERVENTIONAL RADIOLOGY Service: [place] [address] (Case [id number] COMPLETE) IR PERITONEAL/RETROPERITONEAL PER(ANI Detailed) CPT:86224 Reason for Study: diverticulitis with abscess (Case [id number] COMPLETE) IR MOD SEDATION 10-22 MIN (ANI Detailed) CPT:56382 Clinical History: [place] IS NOT under investigation for COVID-19 or is COVID-19 negative 73 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 please place abscess drain. Contact number for responsible provider who can be reached for any questions or notifications of critical findings: [phone] n/a LAST CREATININE 0.9 (06/21/24) Report Status: Verified Date Reported: JUN 22, 2024 Date Verified: JUN 22, 2024 Blow Pit Operator E-Sig:/ES/LISA PENDLETON MD Report: PROCEDURES: Placement [...] pre-procedural Time-Out was performed per [facility] policy. The patient was placed in the supine position on the CT table. Preprocedural scan performed. The suprapubic region/lower abdominal wall was sterilely prepped and draped in the usual fashion.1% lidocaine without epinephrine was used for local anesthesia. Using real-time CT fluoroscopy, a 5 Jamaican FreeWavzesis catheter was advanced into the collection in the left pelvis. A wire was coiled in the collection. The tract into the collection was dilated to accommodate the 12 Jamaican locking pigtail drainage catheter. 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 Operator) /JRT LISA PENDLETON [facility] Jun 22, 2024 11:[address] NEEDLE PLACEMENT (P): FLYNN WEAVER [id number] -1950 M Exm Date: JUN 22, 2024@11:48 Req Phys: ANGELA HOLDEN Loc: [facility]06-22-2024@17:14 Im Loc: CT IMAGING Service: [place] [address] (Case [id number] COMPLETE) CT SCAN FOR NEEDLE PLACEMENT (CT Detailed) CPT:99672 Reason for Study: l pelvic abscess drain Clinical History: Report Status: Verified Date Reported: JUN 22, 2024 Date Verified: JUN 22, 2024 Blow Pit Operator E-Sig:/ES/LISA PENDLETON MD Report: PROCEDURES: Placement [...] pre-procedural Time-Out was performed per [facility] policy. The patient was placed in the supine position on the CT table. Preprocedural scan performed. The suprapubic region/lower abdominal wall was sterilely prepped and draped in the usual fashion.1% lidocaine without epinephrine was used for local anesthesia. Using real-time CT fluoroscopy, a 5 Jamaican FreeWavzesis catheter was advanced into the collection in the left pelvis. A wire was coiled in the collection. The tract into the collection was dilated to accommodate the 12 Jamaican locking pigtail drainage catheter. 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 Operator) /JRT LISA PENDLETON [facility] Jun 21, 2024 06:[address] (AP) ABDOMEN/PELVIS (P): FLYNN WEAVER [id number] -1950 Exm Date: JUN 21, 2024@18:09 Req Phys: DELIA MARTINEZ Loc: [facility] EMERGENCY [facility] WALK[facility] ([place] [facility] [place] Loc: CT IMAGING Service: [place] [address] (Case [id number] COMPLETE) CT (AP) ABDOMEN/PELVIS W CONTRAST(CT Detailed) CPT:41305 Contrast Media : Non-ionic Iodinated Reason for [...] PLASMA .CREAT EGFR(CKD-E >90 Ref: >=60 Allergies: ([place] only) TERAZOSIN (Mar 13, 2015) Defer to [...] 21, 2024 Date Verified: JUN 21, 2024 Blow Pit Operator E-Sig:/ES/CARLOS A CUNNINGHAM DO Report: EXAMINATION: [...] Interpreting Staff: CARLOS A CUNNINGHAM DO, RADIOLOGIST (Blow Pit Operator) /CARLOS A ROWELL [facility] Lab: [facility] [CLIA# [id number]] [place] [address] Accession [UID]: [id number] [[id number]] Received: Jul 16, 2024@14:41 Collection sample: BLOOD Collection date: Jul 16, 2024 14:07 Provider: LEISA GOLDEN Comment on specimen: R AC, RECEIVED 2 BLOOD CULTURE BOTTLES Test(s) ordered: CULTURE & SUSCEPTIBILITY...... completed: Jul 22, 2024 * BACTERIOLOGY FINAL REPORT => Jul 22, 2024 13:39 TECH CODE: 02106 CULTURE RESULTS: NO GROWTH 5 DAYS Bacteriology Remark(s): THIS REPORT IS FINAL =--=--=--=--=--=--=--=--=--= --=--=--=--=--=--=--=--=--=- -=--=--=--=--=--=--=-- Performing Laboratory: Bacteriology Report Performed By: [facility] [CLIA# [id number]] [place] [address] [facility] Jul 16, 2024 01:54 PM LR MICROBIOLOGY RE PORT: Reporting Lab: [facility] [IA# [id number]] [place] [address] Accession [UID]: [id number] [[id number]] Received: Jul 16, 2024@14:41 Collection sample: BLOOD Collection date: Jul 16, 2024 13:54 Provider: LEISA GOLDEN Comment on specimen: [place] AC, RECEIVED 2 BLOOD CULTURE BOTTLES Test(s) ordered: CULTURE & SUSCEPTIBILITY...... completed: Jul 22, 2024 * BACTERIOLOGY FINAL REPORT => Jul 22, 2024 13:39 TECH CODE: [id number] CULTURE RESULTS: NO GROWTH 5 DAYS Bacteriology Remark(s): THIS REPORT IS FINAL =--=--=--=--=--=--=--=--=--= --=--=--=--=--=--=--=--=--=- -=--=--=--=--=--=--=-- Performing Laboratory: Bacteriology Report Performed By: [facility] [IA# [id number]] [place] [address] [facility] Jul 03, 2024 05:59 AM LR SURGICAL PATHOL OGY REPORT: LOCAL TITLE: LR SURGICAL PATHOLOGY REPORT STANDARD TITLE: PATHOLOGY REPORT DATE OF NOTE: JUL 06, 2024@10:40:48 ENTRY DATE: JUL 06, 2024@10:40:48 AUTHOR: EDUARDO PALOMARES EXP COSIGNER: URGENCY: STATUS: COMPLETED $APHDR Reporting Lab: [facility] [IA# [id number]] [place] [address] - - - - - - - [...] - PATHOLOGY REPORT Accession No. [id number] - - - - - - - [...] - PATHOLOGY REPORT Accession No. [id number] - - - - - - - [...] Second circumferential surgical margin, en face; E-F: Technology Intern diverticula; G: Technology Intern section of mesentery; H: Random guest experience representative section of additional adipose tissue fragment. [...] colonic tissue ring, bisected transversely. [facility]: Microscopic examination performed. DIAGNOSIS: 1. Colon, sigmoid, sigmoidectomy-- - Diverticulosis with perforation and focal abscess formation 2. Colon, anastomotic rings, excision-- - Viable colonic mucosa without diagnostic abnormality /es/ EDUARDO PALOMARES MD STAFF PATHOLOGIST Signed Jul 06, 2024@10:40 Performing Laboratory: Surgical Pathology Report Performed By: [facility] [CLIA# [id number]] [place] [address] $FTR - - - - - - [...] - - FLYNN WEAVER STANDARD FORM 515 ID:[id number] SEX:M :1950 AGE: 73 LOC:65848 ADM:Jun DX:DIVERTICULITIS PCP: Jatinder Cabrera /alexi/ EDUARDO PALOMARES MD STAFF PATHOLOGIST Signed: 07/06/2024 10:40 EDUARDO PALOMARES [facility] Jun 22, 2024 01:15 PM LR MICROBIOLOGY RE PORT: Reporting Lab: [facility] [CLIA# [id number]] [place] [address] Accession [UID]: [id number] [[id number]] Received: Jun 22, 2024@13:38 Collection sample: FLUID Collection date: Jun 22, 2024 13:15 Provider: ANGELA HOLDEN Comment on specimen: LLQ ABSCESS, RECEIVED IN ANAEROBIC TRANSPORT VIAL Test(s) ordered: GRAM STAIN.................... completed: Jun 22, 2024 15:03 CULTURE & SUSCEPTIBILITY...... completed: Jun 25, 2024 * BACTERIOLOGY FINAL REPORT => Jun 25, 2024 10:56 TECH CODE: [id number] GRAM STAIN: DIRECT SMEAR of specimen before [...] By: [facility] [CLIA# [id number]] [place] [address] [facility] Jun 22, 2024 01:15 PM LR MICROBIOLOGY RE PORT: Reporting Lab: [facility] [CLIA# [id number]] [place] [address] Accession [UID]: [id number] [[id number]] Received: Jun 22, 2024@13:38 Collection sample: FLUID Collection date: Jun 22, 2024 13:15 Provider: ANGELA HOLDEN Comment on specimen: LLQ ABSCESS, RECEIVED IN ANAEROBIC TRANSPORT VIAL Test(s) ordered: ANAEROBIC CULTURE............. completed: Jun 28, 2024 * BACTERIOLOGY FINAL REPORT => Jun 28, 2024 10:08 TECH CODE: [id number] CULTURE RESULTS: HEAVY GROWTH MIXED ANAEROBES Comment: [...] By: [facility] [CLIA# [id number]] [place] [address] [facility] Jun 21, 2024 06:12 PM LR MICROBIOLOGY RE PORT: Reporting Lab: [facility] [CLIA# [id number]] [place] [address] Accession [UID]: [id number] [[id number]] Received: Jun 21, 2024@18:12 Collection sample: BLOOD [...] By: [facility] [CLIA# [id number]] [place] [address] [facility] Jun 21, 2024 06:11 PM LR MICROBIOLOGY RE PORT: Reporting Lab: [facility] [CLIA# [id number]] [place] [address] Accession [UID]: [id number] [[id number]] Received: Jun 21, 2024@18:11 Collection sample: BLOOD [...] By: [facility] [CLIA# [id number]] [place] [address] [facility] Encounter Notes: [...] Behavior Committee and provide DBRS reference number [id number] ([phone] (04/25/24), [phone] (09/08/22), [phone] (08/02/17), [phone] (04/22/17), [phone] (03/23/16), [phone] (01/13/16)). The DBRS electronic report was reviewed by the Disruptive Behavior Committee on Jun. The committee decided that the behavior reported warrants both a Behavior Flag and a letter that will be sent to the expressing our concern and reinforcing [facility] expectations of appropriate behavior. [facility] Tracking Number: [id number] The flag reads as follows: Behavior: History of verbally abusive behavior toward staff both in person and on phone calls. Response: Set firm, clear limits on any hostile or abusive comments or behaviors. Have a low threshold for ending calls or appointments if behaviors continue. REPORT ANY ADDITIONAL DISRUPTIVE BEHAVIOR EVENTS IN DBRS The letter reads as follows: July 12, 2024 [facility] Flynn Yamil Weaver [address] [place] [address] Dear Mr. Weaver, It has been reported to the Disruptive Behavior Committee (DBC) of the [facility] ([facility]) that on June 25, 2024 you [...] was established with the approval of the [facility] senior business development analyst to address issues regarding the safety of veterans receiving care here and the staff who provide that care. The DBC reviews reports from staff and patients and recommends corrective action to prevent reoccurrences of inappropriate behavior. The DBC is comprised of [facility] staff from a variety of health care disciplines as well as the [place] Police and a Patient Technology Intern. This letter serves as a reminder that you may not continue with these behaviors. Future behavior such as that mentioned above will result in additional actions by the DBC. Additional DBC actions can include one or more of the following: restricting your care to the main [facility] campus; requiring you to register with the [place] Police upon entering the medical center to obtain a Zero Tolerance card; requiring a [place] Police escort during your visits to this facility; or making recommendations to [facility] leadership for other restrictions to your care. We hope your future visits to this [facility] are pleasant and your medical needs are met with courtesy and professionalism. If you become frustrated with the care you receive or have any questions or need more information regarding this letter, please address your concerns in a more constructive way by contacting a Patient Technology Intern at [phone]. Respectfully, The Disruptive Behavior Committee Thank you for taking the time to complete the report and for supporting our efforts to improve safety of the [facility]. /alexi/ MCKAY TOBIN, Ph.D., L.P. [employer] Block Out Machine Operator Signed: 07/12/2024 10:50 Receipt Acknowledged By: 07/16/2024 14:28 /es/ Jatinder Cabrera MD Physician 07/12/2024 10:58 /es/ MARYBETH POWELL MD STAFF SURGEON, COLON/RECTAL MCKAY TOBIN [facility]
[2024-08-01 07:44] LABS: Basophils Percent Auto 0.3 % (0.0-3.0); Eosinophils Percent Auto 0.4 % (0.0-7.0); Hemoglobin* 14.4 gm/dL (13.5-17.5); Immature Granulocytes Pct Auto 0.6 %; Lymphocytes Percent Auto 8.9 % (20-44); Mean Corpuscular HGB Conc 35 gm/dL (32-36); Mean Corpuscular Hemoglobin 32 pg (26-34); Mean Corpuscular Volume 90 fL (80-100); Monocytes Percent Auto 6.2 % (0.0-11.0); Neutrophils Percent Auto 83.6 % (42.0-72.0); Platelet Count* 266 K/uL (140-440); RDW Coefficient of Variation % 14.3 % (11.5-15.5); Red Blood Count 4.57 m/uL (4.30-5.90); White Blood Count* 14.53 K/uL (4.50-11.00)
--- OUTSIDE RECORDS SUMMARY | 2024-08-01 07:46 | XMS_ITS | Encounter Summary ---
Author Name [facility] [place] Address [address] [place] [address] Care Team Providers Care [employer] Commerce Consultant Name Role Phone PREMA BENITEZ Primary Care [...] PART A Sep 29, 2016 PART A [id number] [phone] JUDY WEAVER PATIENT Selected Encounter This section [...] int w perforation and abscess w/o bleeding [facility] Jul 10, 2024 11:15 AM SECONDARY Athscl heart disease of [place] coronary artery w/o ang pctrs [facility] Jul 10, 2024 11:15 AM SECONDARY Atrioventricular block, second degree [facility] Jul 10, 2024 11:15 AM SECONDARY Bradycardia, unspecified [facility] Jul 10, 2024 11:15 AM SECONDARY Chronic diastolic (congestive) heart failure [facility] Jul 10, 2024 11:15 AM SECONDARY Chronic kidney disease, unspecified [facility] Jul 10, 2024 11:15 AM SECONDARY Dehydration [facility] Jul 10, 2024 11:15 AM SECONDARY Elevated white blood cell count, unspecified [facility] Jul 10, 2024 11:15 AM SECONDARY 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 [facility] Jul 10, 2024 11:15 AM SECONDARY Hyperlipidemia, unspecified [facility] Jul 10, 2024 11:15 AM SECONDARY Hypokalemia [facility] Jul 10, 2024 11:15 AM SECONDARY Ileus, unspecified [facility] Jul 10, 2024 11:15 AM SECONDARY Laparoscopic surgical procedure converted to open procedure [facility] Jul 10, 2024 11:15 AM SECONDARY Obstructive sleep apnea (adult) (pediatric) [facility] Jul 10, 2024 11:15 AM SECONDARY Other disorders of intestinal carbohydrate absorption [facility] Jul 10, 2024 11:15 AM SECONDARY Presence of coronary angioplasty implant and graft [facility] Plan of Treatment: Future Appointments (+ 6 months) and Future Tests (+/- 45 days) The Plan of Treatment section includes future care activities for the patient from all [facility]. This section includes future appointments and future orders which are active, pending or scheduled. Future Appointments This section includes appointments that were scheduled to occur 6 months from the date of the Encounter, up to a maximum of 20 appointments. The data comes from all [facility]. Appointment Date/Time Appointment Type Appointme nt Facility Name Jul 13, 2024 08:15 AM AMBULATORY - NONE [facility] Jul 16, 2024 08:40 AM [facility] Jul 16, 2024 11:30 AM AMBULATORY NONE [facility] Active, Pending, [...] TYPE & SCREEN - LAB BLOOD SP [facility] Jun 08, 2024 09:57 AM Laboratory - Chemi stry Order URINALYSIS URINE WC ONCE [facility] Jun 12, 2024 12:00 AM Laboratory - Chemi stry Order BNP PLASMA SP [facility] Jun 21, 2024 05:45 PM Laboratory - Blood Bank Order TYPE & SCREEN - LAB BLOOD [facility] Jul 03, 2024 12:00 AM Laboratory - Blood Bank Order TYPE & SCREEN - LAB BLOOD [facility] Jul 16, 2024 12:00 AM Laboratory - Chemi stry Order CBC BLOOD SP ONCE [facility] Jul 17, 2024 12:00 AM Laboratory - Chemi stry Order BASIC METABOLIC PANEL+MG PLASMA SP ONCE [facility] Surgical Procedures: All associated to the encounter This section includes all Surgical Procedures and Surgical Procedure Notes associated to the Encounter. Surgical Procedures This section includes all Surgical Procedures associated to the Encounter. Surgical Procedure Date/Time Procedure Procedure Type Procedure Qualifiers Provider Source Jul 03, 2024 08:33 AM Cystoscopy, Bilateral Ureteral Stent Placement CYSTOSCOPY AND TREATMENT Other Procedure CPT Code(s): GR-SERVICE BY [place] RESIDENT, LT-LEFT SIDE CHARITO SUAREZ [facility] Surgical Notes This section includes all Surgical Notes associated to the Procedure. Date/Time Jul 03, 2024 08:33 AM OPERATIVE REPORT: LOCAL TITLE: OPERATION REPORT STANDARD TITLE: OPERATIVE REPORT DATE OF NOTE: JUL 03, 2024@08:33 ENTRY DATE: JUL 03, 2024@14:11:04 SURGEON: CHRISTINE FRIAS ATTENDING: HOWIE GRIDER URGENCY: STATUS: COMPLETED SUBJECT: Case #: [id number] PREOPERATIVE DIAGNOSIS: Diverticulitis. POSTOPERATIVE DIAGNOSIS: Same. PROCEDURES [...] The case was started by inserting a 22-Luxembourger rigid cystoscope sheath and 30-degree angle lens. [...] there is any concern about the ureters. /wyatt/ CHRISTINE FRIAS MD RESIDENT Signed: 07/03/2024 14:20 /wyatt/ HOWIE GRIDER MD STAFF SURGEON Cosigned: 07/05/2024 08:09 CHRISTINE FRIAS Jul 03, 2024 08:33 AM SURGERY NURSING OPERATIVE NOTE: LOCAL TITLE: NURSE INTRAOPERATIVE REPORT STANDARD TITLE: SURGERY NURSING OPERATIVE NOTE DATE OF NOTE: JUL 03, 2024@08:33 ENTRY DATE: JUL 03, 2024@13:32:36 AUTHOR: NIMO KILGORE COSIGNER: URGENCY: STATUS: COMPLETED SUBJECT: Case #: [id number] NURSE INTRAOPERATIVE REPORT Has ADDENDA Operating Room: OR5 Surgical Priority: ELECTIVE Patient in Hold: NOT ENTERED Patient in OR: JUL 03, 2024 08:33 Operation Begin: JUL 03, 2024 09:18 Operation End: JUL 03, 2024 09:32 Patient Out OR: JUL 03, 2024 13:32 Major Operations Performed: Primary: Cystoscopy, Bilateral Ureteral Stent Placement Robotic Assistance (Y/N): NO Wound Classification: CLEAN/CONTAMINATED Operation Disposition: JUNG Discharged Via: STRETCHER Primary Surgeon: CHARITO SUAREZ Assist: CHRISTNIE FRIAS Attending Surgeon: DAHM,CHARITO Second Assist: N/A OR Support Personnel: Scrubbed Circulating Fani SOLANO () NIMO KILGORE () KENJI FOWLER () Preop Mood: ANXIOUS Preop Consc: ALERT-ORIENTED Preop Skin Integ: INTACT Preop Patrick: N/A --- Time Out Checklist --- Confirm [...] Surgery Position(s): Lithotomy Placed: N/A Electrocautery Unit: [id number] ESU Coagulation Range: N/A ESU Cutting Range: [...] Nursing Care Comments: See CPRS nursing note /wyatt/ Nimo Kilgore RN Staff Nurse, OR Signed: 07/03/2024 13:43 07/30/2024 ADDENDUM STATUS: COMPLETED The Principal City Planning Engineer field was changed from <NOT ENTERED> to GALINA TEMPLETON/ Drew LOVE CERTIFIED REGISTERED NURSE OR DIRECTOR Signed: 07/30/2024 13:03 NIMO KILGORE Surgical Procedure Date/Time Procedure Procedure Type Procedure Qualifiers Provider Source Jul 03, 2024 08:33 AM laproscopic converted to open sigmoid colectomy, splenic flexure mobilization, diverting loop ileostomy, flexable sigmoidoscopy L COLECTOMY/COL OPROCTOSTOMY GR-SERVICE BY [place] RESIDENT Alex POON [facility] Surgical Notes This section includes all Surgical Notes associated to the Procedure. Date/Time Jul 03, 2024 08:33 AM OPERATIVE REPORT: LOCAL TITLE: OPERATION REPORT STANDARD TITLE: OPERATIVE REPORT DATE OF NOTE: JUL 03, 2024@08:33 ENTRY DATE: JUL 03, 2024@13:32:35 SURGEON: CHAPITO HENAO ATTENDING: WENCESLAO POON URGENCY: STATUS: COMPLETED SUBJECT: Case #: [id number] Attending: Yovanny Poon MD Fellow: Chapito Henao [...] and taken to PACU in stable condition. /wyatt/ WENCESLAO POON MD STAFF SURGEON, COLON/RECTAL Signed: 07/06/2024 14:13 for CHAPITO Henao MD. Colorectal Fellow /wyatt/ WENCESLAO POON MD STAFF SURGEON, COLON/RECTAL Cosigned: 07/06/2024 14:13 WENCESLAO POON Jul 03, 2024 08:33 AM SURGERY NURSING OPERATIVE NOTE: LOCAL TITLE: NURSE INTRAOPERATIVE REPORT STANDARD TITLE: SURGERY NURSING OPERATIVE NOTE DATE OF NOTE: JUL 03, 2024@08:33 ENTRY DATE: JUL 03, 2024@13:32:35 AUTHOR: NIMO KILGORE EXP COSIGNER: URGENCY: STATUS: COMPLETED SUBJECT: Case #: [id number] NURSE INTRAOPERATIVE REPORT Has ADDENDA Operating Room: OR5 Surgical Priority: ELECTIVE Patient [...] Classification: DIRTY/INFECTED Operation Disposition: JUNG Discharged Via: YARI Primary Surgeon: WENCESLAO POON Director Of Veterans Affairs: CHAPITO HENAO Attending Surgeon: WENCESLAO POON Second Assist: LEI LAW Other Scrubbed Assistants: RENEE RICHARDSON MOLLY OR Support Personnel: Scrubbed Circulating Fani SOLANO () NIMO KILGORE () KENJI FOWLER () Ronnie SPEARS () MERY SANDOVAL () DAVID NUR () Preop Mood: ANXIOUS Preop Consc: INTUBATED Preop Skin Integ: INTACT Preop Patrick: N/A --- Time Out Checklist --- Confirm [...] Surgery Position(s): Lithotomy Placed: N/A Electrocautery Unit: [id number] ESU Coagulation Range: 0-30 ESU Cutting Range: [...] prior to wound closure by surgeons per [place] policy Intra-Operative X-Ray: NO Intra-Operative X-Ray Comment: not indicated per [place] policy Counter: NIMO KILGORE Counts Verified By: [...] Nursing Care Comments: See CPRS nursing note /wyatt/ Nimo Kilgore RN Staff Nurse, OR Signed: 07/03/2024 13:43 07/24/2024 ADDENDUM STATUS: COMPLETED The Principal City Planning Engineer field was changed from <NOT ENTERED> to GALINA TEMPLETON /wyatt/ Drew LOVE CERTIFIED REGISTERED NURSE OR DIRECTOR Signed: 07/24/2024 13:02 NIMO KILGORE Lab Results: +/- 30 days [...] Range Comment Jul 21, 2024 10:38 AM [facility] BASIC METABOLIC PANEL+MG Specimen Type: PLASMA No comment entered. Ordering Provider: SARAI GOLDEN Report Released Date/Time: Jul 20, 2024 06:50 PM Reporting Lab: [facility] [address] Performing Lab: [facility] [address] CREATININE 0.8 mg/dL 0.7-1.2 UREA NITROGEN 31 mg/dL H 8-26 GLUCOSE 120 mg/dL H 70-100 SODIUM 125 mmol/L L 136-145 POTASSIUM 4.4 mmol/L 3.5-5.1 CHLORIDE 100 mmol/L 98-107 CO2 17 mmol/L L 22-29 CALCIUM 9.6 mg/dL 8.4-10.2 MAGNESIUM 1.9 mg/dL 1.6-2.6 ANION GAP 8 mmol/L 5-15 .CREAT EGFR(CKD-EPI) >90 >60 Jul 21, 2024 10:38 AM [facility] CBC Specimen Type: BLOOD No comment entered. Ordering Provider: SARAI GOLDEN Report Released Date/Time: Jul 20, 2024 06:50 PM Reporting Lab: [facility] [address] Performing Lab: [facility] [address] WBC 16.0 H 4.0-11.0 RBC 5.16 4.60-6.20 HGB 15.8 g/dL 13.5-17.9 HCT 45.5 41.0-54.0 MCV 88.2 fL 80.0-100.0 MCH 30.6 pg 27.0-33.0 MCHC 34.7 g/dL 32.0-37.5 PLT 428 H 150-400 MPV 10.8 fL 9.1-13.0 RDW 13.6 11.5-14.5 Jul 20, 2024 01:00 PM [facility] SODIUM,URINE RANDOM Specimen Type: URINE No comment entered. Ordering Provider: SARAI GOLDEN Report Released Date/Time: Jul 20, 2024 08:22 AM Reporting Lab: [facility] [address] Performing Lab: [facility] [address] SODIUM,URINE RANDOM <20 mmol/L Jul 20, 2024 01:00 PM [facility] OSMOLALITY,URINE Specimen Type: URINE No comment entered. Ordering Provider: SARAI GOLDEN Report Released Date/Time: Jul 20, 2024 08:22 AM Reporting Lab: [facility] [address] Performing Lab: [facility] [address] OSMOLALITY,URIN E 648 mosm/kg 500-800 Jul 20, 2024 06:45 AM [facility] BASIC METABOLIC PANEL+MG Specimen Type: PLASMA No comment entered. Ordering Provider: SARAI GOLDEN Report Released Date/Time: Jul 19, 2024 06:13 PM Reporting Lab: [facility] [address] Performing Lab: [facility] [address] CREATININE 0.8 mg/dL 0.7-1.2 UREA NITROGEN 36 mg/dL H 8-26 GLUCOSE 111 mg/dL H 70-100 SODIUM 121 mmol/L L 136-145 POTASSIUM 4.1 mmol/L 3.5-5.1 CHLORIDE 99 mmol/L 98-107 CO2 14 mmol/L L 22-29 CALCIUM 9.5 mg/dL 8.4-10.2 MAGNESIUM 1.8 mg/dL 1.6-2.6 ANION GAP 8 mmol/L 5-15 .CREAT EGFR(CKD-EPI) >90 >60 Jul 20, 2024 06:43 AM [facility] CBC & DIFF Specimen Type: BLOOD Comment: Automated Differential Performed Ordering Provider: SARAI GOLDEN Report Released Date/Time: Jul 19, 2024 06:13 PM Reporting Lab: [facility] [address] Performing Lab: [facility] [address] WBC 16.6 H 4.0-11.0 RBC 4.96 4.60-6.20 [...] H 0.0-0.1 Jul 20, 2024 05:30 AM [facility] OSMOLALITY,SERUM Specimen Type: SERUM No comment entered. Ordering Provider: SARAI GOLDEN Report Released Date/Time: Jul 20, 2024 09:47 AM Reporting Lab: [facility] [address] Performing Lab: [facility] [address] OSMOLALITY,SERU M 266 mosm/kg L 276-305 Jul 19, 2024 08:57 AM [facility] BASIC METABOLIC PANEL+MG Specimen Type: PLASMA No comment entered. Ordering Provider: SARAI GOLDEN Report Released Date/Time: Jul 18, 2024 10:24 PM Reporting Lab: [facility] [address] Performing Lab: [facility] [address] CREATININE 1.0 mg/dL 0.7-1.2 UREA NITROGEN 40 mg/dL H 8-26 GLUCOSE 104 mg/dL H 70-100 SODIUM 129 mmol/L L 136-145 POTASSIUM 3.3 mmol/L L 3.5-5.1 CHLORIDE 104 mmol/L 98-107 CO2 16 mmol/L L 22-29 CALCIUM 8.0 mg/dL L 8.4-10.2 MAGNESIUM 1.7 mg/dL 1.6-2.6 ANION GAP 9 mmol/L 5-15 .CREAT EGFR(CKD-EPI) 80 >60 Jul 19, 2024 08:57 AM [facility] CBC Specimen Type: BLOOD No comment entered. Ordering Provider: SARAI GOLDEN Report Released Date/Time: Jul 18, 2024 10:24 PM Reporting Lab: [facility] [address] Performing Lab: [facility] [address] WBC 17.3 H 4.0-11.0 RBC 4.83 4.60-6.20 HGB 14.8 g/dL 13.5-17.9 HCT 42.6 41.0-54.0 MCV 88.2 fL 80.0-100.0 MCH 30.6 pg 27.0-33.0 MCHC 34.7 g/dL 32.0-37.5 PLT 456 H 150-400 MPV 10.8 fL 9.1-13.0 RDW 13.7 11.5-14.5 Jul 17, 2024 06:55 PM [facility] PHOSPHORUS Specimen Type: PLASMA No comment entered. Ordering Provider: SARAI GOLDEN Report Released Date/Time: Jul 17, 2024 01:54 PM Reporting Lab: [facility] [address] Performing Lab: [facility] [address] PHOSPHORUS 2.9 mg/dL 2.3-4.3 Jul 17, 2024 06:55 PM [facility] BASIC METABOLIC PANEL+MG Specimen Type: PLASMA No comment entered. Ordering Provider: SARAI GOLDEN Report Released Date/Time: Jul 17, 2024 01:54 PM Reporting Lab: [facility] [address] Performing Lab: [facility] [address] CREATININE 1.2 mg/dL 0.7-1.2 UREA NITROGEN 62 mg/dL H 8-26 GLUCOSE 116 mg/dL H 70-100 SODIUM 128 mmol/L L 136-145 POTASSIUM 3.8 mmol/L 3.5-5.1 CHLORIDE 100 mmol/L 98-107 CO2 16 mmol/L L 22-29 CALCIUM 9.3 mg/dL 8.4-10.2 MAGNESIUM 2.1 mg/dL 1.6-2.6 ANION GAP 12 mmol/L 5-15 .CREAT EGFR(CKD-EPI) 64 >60 Jul 17, 2024 07:00 AM [facility] CBC & DIFF Specimen Type: BLOOD Comment: Manual Differential Performed Ordering Provider: SARAI GOLDEN Report Released Date/Time: Jul 16, 2024 04:52 PM Reporting Lab: [facility] [address] Performing Lab: [facility] [address] WBC 18.9 H 4.0-11.0 RBC 5.55 4.60-6.20 [...] MORPHOLOGY PRESENT Jul 17, 2024 07:00 AM [facility] ALBUMIN Specimen Type: PLASMA No comment entered. Ordering Provider: SARAI GOLDEN Report Released Date/Time: Jul 16, 2024 12:12 PM Reporting Lab: [facility] [address] Performing Lab: [facility] [address] ALBUMIN 4.3 g/dL 3.5-5.0 Jul 17, 2024 07:00 AM [facility] COMPREHENSIVE METABOLIC PANEL+MG Specimen Type: PLASMA No comment entered. Ordering Provider: SARAI GOLDEN Report Released Date/Time: Jul 16, 2024 04:52 PM Reporting Lab: [facility] [address] Performing Lab: [facility] [address] CREATININE 1.3 mg/dL H 0.7-1.2 UREA NITROGEN [...] L >60 Jul 16, 2024 07:10 PM [facility] LACTIC ACID Specimen Type: PLASMA No comment entered. Ordering Provider: SARAI GOLDEN Report Released Date/Time: Jul 16, 2024 12:12 PM Reporting Lab: [facility] [address] Performing Lab: [facility] [address] LACTIC ACID 0.9 mmol/L 0.5-2.2 Jul 16, 2024 02:14 PM [facility] MRSA SURVL NARES DNA Specimen Type: NARES No comment entered. Ordering Provider: SARAI GOLDEN Report Released Date/Time: Jul 16, 2024 12:12 PM Reporting Lab: [facility] [address] Performing Lab: [facility] [address] MRSA SURVL NARES DNA NEGATIVE Negative Jul 16, 2024 02:10 PM [facility] LACTIC ACID Specimen Type: PLASMA No comment entered. Ordering Provider: SARAI GOLDEN Report Released Date/Time: Jul 16, 2024 12:12 PM Reporting Lab: [facility] [address] Performing Lab: [facility] [address] LACTIC ACID 0.9 mmol/L 0.5-2.2 Jul 16, 2024 02:08 PM [facility] COMPREHENSIVE METABOLIC PANEL+MG Specimen Type: PLASMA No comment entered. Ordering Provider: SARAI GOLDEN Report Released Date/Time: Jul 16, 2024 12:12 PM Reporting Lab: [facility] [address] Performing Lab: [facility] [address] CREATININE 2.0 mg/dL H 0.7-1.2 UREA NITROGEN [...] L >60 Jul 16, 2024 02:08 PM [facility] CBC & DIFF Specimen Type: BLOOD Comment: Manual Differential Performed Ordering Provider: SARAI GOLDEN Report Released Date/Time: Jul 16, 2024 12:12 PM Reporting Lab: [facility] [address] Performing Lab: [facility] [address] WBC 19.7 H 4.0-11.0 RBC 5.39 4.60-6.20 [...] MORPHOLOGY PRESENT Jul 10, 2024 07:16 AM [facility] PHOSPHORUS Specimen Type: PLASMA No comment entered. Ordering Provider: JUANCARLOS MAYEN S Report Released Date/Time: Jul 09, 2024 12:23 PM Reporting Lab: [facility] [address] Performing Lab: [facility] [address] PHOSPHORUS 3.0 mg/dL 2.3-4.3 Jul 10, 2024 07:16 AM [facility] BASIC METABOLIC PANEL+MG Specimen Type: PLASMA No comment entered. Ordering Provider: JUANCARLOS MAYEN S Report Released Date/Time: Jul 09, 2024 12:23 PM Reporting Lab: [facility] [address] Performing Lab: [facility] [address] CREATININE 0.7 mg/dL 0.7-1.2 UREA NITROGEN 27 mg/dL H 8-26 GLUCOSE 104 mg/dL H 70-100 SODIUM 133 mmol/L L 136-145 POTASSIUM 4.3 mmol/L 3.5-5.1 CHLORIDE 102 mmol/L 98-107 CO2 19 mmol/L L 22-29 CALCIUM 10.1 mg/dL 8.4-10.2 MAGNESIUM 1.9 mg/dL 1.6-2.6 ANION GAP 12 mmol/L 5-15 .CREAT EGFR(CKD-EPI) >90 >60 Jul 10, 2024 07:15 AM [facility] CBC Specimen Type: BLOOD No comment entered. Ordering Provider: JUANCARLOS MAYEN Report Released Date/Time: Jul 09, 2024 12:23 PM Reporting Lab: [facility] [address] Performing Lab: [facility] [address] WBC 18.8 H 4.0-11.0 RBC 5.08 4.60-6.20 HGB 15.9 g/dL 13.5-17.9 HCT 46.8 41.0-54.0 MCV 92.1 fL 80.0-100.0 MCH 31.3 pg 27.0-33.0 MCHC 34.0 g/dL 32.0-37.5 PLT 479 H 150-400 MPV 10.2 fL 9.1-13.0 RDW 13.7 11.5-14.5 Jul 09, 2024 07:08 AM [facility] CBC Specimen Type: BLOOD No comment entered. Ordering Provider: QUYNH WEISS Report Released Date/Time: Jul 08, 2024 06:18 PM Reporting Lab: [facility] [address] Performing Lab: [facility] [address] WBC 15.3 H 4.0-11.0 RBC 4.91 4.60-6.20 HGB 15.1 g/dL 13.5-17.9 HCT 45.7 41.0-54.0 MCV 93.1 fL 80.0-100.0 MCH 30.8 pg 27.0-33.0 MCHC 33.0 g/dL 32.0-37.5 PLT 443 H 150-400 MPV 10.0 fL 9.1-13.0 RDW 13.5 11.5-14.5 Jul 08, 2024 10:50 AM [facility] URINALYSIS Specimen Type: URINE No comment entered. Ordering Provider: KATELYNN PERSON Report Released Date/Time: Jul 08, 2024 08:41 AM Reporting Lab: [facility] [address] Performing Lab: [facility] [address] URINE COLOR YELLOW SPECIFIC GRAVITY >1.050 H [...] NEGATIVE NEGATIVE Jul 08, 2024 09:54 AM [facility] CBC Specimen Type: BLOOD Comment: Specimen received in Lab at: [id number] Ordering Provider: JUANCARLOS MAYEN Report Released Date/Time: Jul 07, 2024 04:49 PM Reporting Lab: [facility] [address] Performing Lab: [facility] [address] WBC 17.5 H 4.0-11.0 RBC 4.88 4.60-6.20 HGB 14.9 g/dL 13.5-17.9 HCT 45.7 41.0-54.0 MCV 93.6 fL 80.0-100.0 MCH 30.5 pg 27.0-33.0 MCHC 32.6 g/dL 32.0-37.5 PLT 472 H 150-400 MPV 10.2 fL 9.1-13.0 RDW 13.7 11.5-14.5 Jul 08, 2024 09:54 AM [facility] PHOSPHORUS Specimen Type: PLASMA Comment: Specimen received in Lab at: [id number] Ordering Provider: JUANCARLOS MAYEN Report Released Date/Time: Jul 07, 2024 04:49 PM Reporting Lab: [facility] [address] Performing Lab: [facility] [address] PHOSPHORUS 2.6 mg/dL 2.3-4.3 Jul 08, 2024 09:54 AM [facility] BASIC METABOLIC PANEL+MG Specimen Type: PLASMA Comment: Specimen received in Lab at: [id number] Ordering Provider: JUANCARLOS MAYEN Report Released Date/Time: Jul 07, 2024 04:49 PM Reporting Lab: [facility] [address] Performing Lab: [facility] [address] CREATININE 0.9 mg/dL 0.7-1.2 UREA NITROGEN 26 mg/dL 8-26 GLUCOSE 128 mg/dL H 70-100 SODIUM 134 mmol/L L 136-145 POTASSIUM 3.4 mmol/L L 3.5-5.1 CHLORIDE 100 mmol/L 98-107 CO2 24 mmol/L 22-29 CALCIUM 9.8 mg/dL 8.4-10.2 MAGNESIUM 1.8 mg/dL 1.6-2.6 ANION GAP 10 mmol/L 5-15 .CREAT EGFR(CKD-EPI) >90 >60 Jul 07, 2024 02:00 PM [facility] C DIFF PANEL Specimen Type: FECES No comment entered. Ordering Provider: JEVON ZAZUETA Report Released Date/Time: Jul 07, 2024 12:26 PM Reporting Lab: [facility] [address] Performing Lab: [facility] [address] C DIFF TOX B GENE PCR NEGATIVE Negative Jul 07, 2024 07:41 AM [facility] PHOSPHORUS Specimen Type: PLASMA No comment entered. Ordering Provider: JEVON ZAZUETA Report Released Date/Time: Jul 06, 2024 03:44 PM Reporting Lab: [facility] [address] Performing Lab: [facility] [address] PHOSPHORUS 3.1 mg/dL 2.3-4.3 Jul 07, 2024 07:41 AM [facility] BASIC METABOLIC PANEL+MG Specimen Type: PLASMA No comment entered. Ordering Provider: JEVON ZAZUETA Report Released Date/Time: Jul 06, 2024 03:44 PM Reporting Lab: [facility] [address] Performing Lab: [facility] [address] CREATININE 0.9 mg/dL 0.7-1.2 UREA NITROGEN 20 mg/dL 8-26 GLUCOSE 157 mg/dL H 70-100 SODIUM 136 mmol/L 136-145 POTASSIUM 3.7 mmol/L 3.5-5.1 CHLORIDE 102 mmol/L 98-107 CO2 21 mmol/L L 22-29 CALCIUM 9.8 mg/dL 8.4-10.2 MAGNESIUM 1.9 mg/dL 1.6-2.6 ANION GAP 13 mmol/L 5-15 .CREAT EGFR(CKD-EPI) >90 >60 Jul 07, 2024 07:40 AM [facility] CBC Specimen Type: BLOOD No comment entered. Ordering Provider: JEVON ZAZUETA Report Released Date/Time: Jul 06, 2024 03:44 PM Reporting Lab: [facility] [address] Performing Lab: [facility] [address] WBC 21.2 H 4.0-11.0 RBC 5.09 4.60-6.20 HGB 15.9 g/dL 13.5-17.9 HCT 48.3 41.0-54.0 MCV 94.9 fL 80.0-100.0 MCH 31.2 pg 27.0-33.0 MCHC 32.9 g/dL 32.0-37.5 PLT 500 H 150-400 MPV 10.3 fL 9.1-13.0 RDW 13.6 11.5-14.5 Jul 06, 2024 07:21 AM [facility] CBC Specimen Type: BLOOD No comment entered. Ordering Provider: JEVON ZAZUETA Report Released Date/Time: Jul 05, 2024 01:22 PM Reporting Lab: [facility] [address] Performing Lab: [facility] [address] WBC 18.0 H 4.0-11.0 RBC 4.83 4.60-6.20 HGB 14.6 g/dL 13.5-17.9 HCT 45.5 41.0-54.0 MCV 94.2 fL 80.0-100.0 MCH 30.2 pg 27.0-33.0 MCHC 32.1 g/dL 32.0-37.5 PLT 368 150-400 MPV 10.4 fL 9.1-13.0 RDW 13.6 11.5-14.5 Jul 06, 2024 07:21 AM [facility] PHOSPHORUS Specimen Type: PLASMA No comment entered. Ordering Provider: JEVON ZAZUETA Report Released Date/Time: Jul 05, 2024 01:22 PM Reporting Lab: [facility] [id number] Performing Lab: [facility] [id number] PHOSPHORUS 3.6 mg/dL 2.3-4.3 Jul 06, 2024 07:21 AM [facility] BASIC METABOLIC PANEL+MG Specimen Type: PLASMA No comment entered. Ordering Provider: JEVON ZAZUETA Report Released Date/Time: Jul 05, 2024 01:22 PM Reporting Lab: [facility] [id number] Performing Lab: [facility] [phone] CREATININE 0.7 mg/dL 0.7-1.2 UREA NITROGEN 12 mg/dL 8-26 GLUCOSE 108 mg/dL H 70-100 SODIUM 138 mmol/L 136-145 POTASSIUM 3.4 mmol/L L 3.5-5.1 CHLORIDE 104 mmol/L 98-107 CO2 20 mmol/L L 22-29 CALCIUM 9.3 mg/dL 8.4-10.2 MAGNESIUM 1.9 mg/dL 1.6-2.6 ANION GAP 14 mmol/L 5-15 .CREAT EGFR(CKD-EPI) >90 >60 Jul 05, 2024 07:17 AM [facility] MAGNESIUM Specimen Type: PLASMA No comment entered. Ordering Provider: JUANCARLOS MAYEN S Report Released Date/Time: Jul 04, 2024 09:39 AM Reporting Lab: [facility] [id number] Performing Lab: [facility] [phone] MAGNESIUM 2.0 mg/dL 1.6-2.6 Jul 05, 2024 07:17 AM [facility] PHOSPHORUS Specimen Type: PLASMA No comment entered. Ordering Provider: JUANCARLOS MAYEN S Report Released Date/Time: Jul 04, 2024 09:39 AM Reporting Lab: [facility] [id number] Performing Lab: [facility] [phone] PHOSPHORUS 2.0 mg/dL L 2.3-4.3 Jul 05, 2024 07:17 AM [facility] BASIC METABOLIC PANEL+MG Specimen Type: PLASMA No comment entered. Ordering Provider: JUANCARLOS MAYEN S Report Released Date/Time: Jul 04, 2024 09:39 AM Reporting Lab: [facility] [phone] Performing Lab: [facility] [phone] CREATININE 0.7 mg/dL 0.7-1.2 UREA NITROGEN 12 mg/dL 8-26 GLUCOSE 84 mg/dL 70-100 SODIUM 135 mmol/L L 136-145 POTASSIUM 3.8 mmol/L 3.5-5.1 CHLORIDE 104 mmol/L 98-107 CO2 24 mmol/L 22-29 CALCIUM 9.3 mg/dL 8.4-10.2 MAGNESIUM 2.0 mg/dL 1.6-2.6 ANION GAP 7 mmol/L 5-15 .CREAT EGFR(CKD-EPI) >90 >60 Jul 05, 2024 07:16 AM [facility] CBC Specimen Type: BLOOD No comment entered. Ordering Provider: JUANCARLOS MAYEN S Report Released Date/Time: Jul 04, 2024 09:39 AM Reporting Lab: [facility] [address] Performing Lab: [facility] [address] WBC 18.3 H 4.0-11.0 RBC 4.49 L 4.60-6.20 HGB 14.1 g/dL 13.5-17.9 HCT 43.4 41.0-54.0 MCV 96.7 fL 80.0-100.0 MCH 31.4 pg 27.0-33.0 MCHC 32.5 g/dL 32.0-37.5 PLT 317 150-400 MPV 10.0 fL 9.1-13.0 RDW 13.9 11.5-14.5 Jul 04, 2024 07:17 AM [facility] PHOSPHORUS Specimen Type: PLASMA No comment entered. Ordering Provider: GABINO CAMERON Report Released Date/Time: Jul 03, 2024 06:31 PM Reporting Lab: [facility] [address] Performing Lab: [facility] [address] PHOSPHORUS 2.8 mg/dL 2.3-4.3 Jul 04, 2024 07:17 AM [facility] BASIC METABOLIC PANEL+MG Specimen Type: PLASMA No comment entered. Ordering Provider: GABINO CAMERON Report Released Date/Time: Jul 03, 2024 06:31 PM Reporting Lab: [facility] [address] Performing Lab: [facility] [address] CREATININE 0.7 mg/dL 0.7-1.2 UREA NITROGEN 16 mg/dL 8-26 GLUCOSE 129 mg/dL H 70-100 SODIUM 137 mmol/L 136-145 POTASSIUM 3.7 mmol/L 3.5-5.1 CHLORIDE 107 mmol/L 98-107 CO2 22 mmol/L 22-29 CALCIUM 9.0 mg/dL 8.4-10.2 MAGNESIUM 1.9 mg/dL 1.6-2.6 ANION GAP 8 mmol/L 5-15 .CREAT EGFR(CKD-EPI) >90 >60 Jul 04, 2024 07:16 AM [facility] CBC Specimen Type: BLOOD No comment entered. Ordering Provider: GABINO CAMERON Report Released Date/Time: Jul 03, 2024 06:31 PM Reporting Lab: [facility] [address] Performing Lab: [facility] [address] WBC 20.6 H 4.0-11.0 RBC 4.63 4.60-6.20 HGB 14.2 g/dL 13.5-17.9 HCT 43.4 41.0-54.0 MCV 93.7 fL 80.0-100.0 MCH 30.7 pg 27.0-33.0 MCHC 32.7 g/dL 32.0-37.5 PLT 329 150-400 MPV 10.4 fL 9.1-13.0 RDW 13.8 11.5-14.5 Jul 04, 2024 07:16 AM [facility] CBC & DIFF Specimen Type: BLOOD Comment: Manual Differential Performed Ordering Provider: GABINO CAMERON Report Released Date/Time: Jul 03, 2024 06:31 PM Reporting Lab: [facility] [address] Performing Lab: [facility] [address] WBC 20.6 H 4.0-11.0 RBC 4.63 4.60-6.20 [...] MORPHOLOGY PRESENT Jul 04, 2024 07:15 AM [facility] BNP Specimen Type: PLASMA No comment entered. Ordering Provider: GABINO CAMERON Report Released Date/Time: Jul 03, 2024 06:31 PM Reporting Lab: [facility] [address] Performing Lab: [facility] [address] BNP 292 pg/mL H <99 Jul 03, 2024 10:32 PM [facility] FINGERSTICK GLUCOSE Specimen Type: BLOOD Comment: Save Result Nurse Notified Ordering Provider: KATELYNN PERSON Report Released Date/Time: Jul 03, 2024 10:50 PM Reporting Lab: [facility] [address] Performing Lab: [facility] [address] FINGERSTICK GLUCOSE 126 mg/dL H 70-100 Jul 03, 2024 05:33 PM [facility] FINGERSTICK GLUCOSE Specimen Type: BLOOD Comment: Save Result Nurse Notified Ordering Provider: KATELYNN PERSON Report Released Date/Time: Jul 03, 2024 05:46 PM Reporting Lab: [facility] [address] Performing Lab: [facility] [address] FINGERSTICK GLUCOSE 141 mg/dL H 70-100 Jul 03, 2024 02:31 PM [facility] POC ABG/ELECTROLYTES Specimen Type: ARTERIAL BLOOD Comment: FIO2 = 97% Patient Temp: 36.0 C Sample Type = ARTERIAL Ordering Provider: MAZIN POON Report Released Date/Time: Jul 03, 2024 01:48 PM Reporting Lab: [facility] [address] Performing Lab: [facility] [address] POC PH 7.387 7.35-7.45 POC PCO2 34.4 [...] H 80.0-105.0 Jul 03, 2024 01:05 PM [facility] POC ABG/ELECTROLYTES Specimen Type: ARTERIAL BLOOD Comment: FIO2 = 53% Patient Temp: 36.2 C Sample Type = ARTERIAL Ordering Provider: MAZIN POON Report Released Date/Time: Jul 03, 2024 01:48 PM Reporting Lab: [facility] [address] Performing Lab: [facility] [address] POC PH 7.280 L 7.35-7.45 POC PCO2 [...] mm[Hg] 80.0-105.0 Jul 03, 2024 06:15 AM [facility] URINALYSIS Specimen Type: URINE No comment entered. Ordering Provider: MARYBETH GRAVES Report Released Date/Time: Jun 12, 2024 04:01 PM Reporting Lab: [facility] [address] Performing Lab: [facility] [address] URINE COLOR YELLOW SPECIFIC GRAVITY 1.031 1.003-1.03 [...] 250 NEGATIVE Jul 03, 2024 06:13 AM [facility] CBC Specimen Type: BLOOD No comment entered. Ordering Provider: MARYBETH GRAVES Report Released Date/Time: Jun 12, 2024 03:59 PM Reporting Lab: [facility] [address] Performing Lab: [facility] [address] WBC 15.8 H 4.0-11.0 RBC 5.11 4.60-6.20 HGB 16.1 g/dL 13.5-17.9 HCT 49.1 41.0-54.0 MCV 96.1 fL 80.0-100.0 MCH 31.5 pg 27.0-33.0 MCHC 32.8 g/dL 32.0-37.5 PLT 357 150-400 MPV 9.8 fL 9.1-13.0 RDW 13.7 11.5-14.5 Jun 24, 2024 09:50 AM [facility] BASIC METABOLIC PANEL+MG Specimen Type: PLASMA Comment: Specimen received in Lab at: 0948 Ordering Provider: JEVON ZAZUETA Report Released Date/Time: Jun 23, 2024 06:07 PM Reporting Lab: [facility] [address] Performing Lab: [facility] [address] CREATININE 0.8 mg/dL 0.7-1.2 UREA NITROGEN 13 mg/dL 8-26 GLUCOSE 135 mg/dL H 70-100 SODIUM 135 mmol/L L 136-145 POTASSIUM 3.6 mmol/L 3.5-5.1 CHLORIDE 103 mmol/L 98-107 CO2 24 mmol/L 22-29 CALCIUM 9.2 mg/dL 8.4-10.2 MAGNESIUM 1.9 mg/dL 1.6-2.6 ANION GAP 8 mmol/L 5-15 .CREAT EGFR(CKD-EPI) >90 >60 Jun 24, 2024 09:50 AM [facility] CBC Specimen Type: BLOOD Comment: Specimen received in Lab at: 0948 Ordering Provider: JEVON ZAZUETA Report Released Date/Time: Jun 23, 2024 06:07 PM Reporting Lab: [facility] [address] Performing Lab: [facility] [address] WBC 15.5 H 4.0-11.0 RBC 4.93 4.60-6.20 HGB 15.2 g/dL 13.5-17.9 HCT 46.5 41.0-54.0 MCV 94.3 fL 80.0-100.0 MCH 30.8 pg 27.0-33.0 MCHC 32.7 g/dL 32.0-37.5 PLT 223 150-400 MPV 11.4 fL 9.1-13.0 RDW 13.9 11.5-14.5 Jun 23, 2024 07:52 AM [facility] COMPREHENSIVE METABOLIC PANEL+MG Specimen Type: PLASMA No comment entered. Ordering Provider: JEVON ZAZUETA Report Released Date/Time: Jun 22, 2024 05:51 PM Reporting Lab: [facility] [address] Performing Lab: [facility] [address] CREATININE 0.7 mg/dL 0.7-1.2 UREA NITROGEN 16 [...] >90 >60 Jun 23, 2024 07:52 AM [facility] CBC & DIFF Specimen Type: BLOOD Comment: Automated Differential Performed Ordering Provider: JEVON ZAZUETA Report Released Date/Time: Jun 22, 2024 05:51 PM Reporting Lab: [facility] [address] Performing Lab: [facility] [address] WBC 14.9 H 4.0-11.0 RBC 5.09 4.60-6.20 [...] 0.1 0.0-0.1 Jun 22, 2024 06:10 PM [facility] CBC Specimen Type: BLOOD No comment entered. Ordering Provider: JEVON ZAZUETA Report Released Date/Time: Jun 22, 2024 05:51 PM Reporting Lab: [facility] [address] Performing Lab: [facility] [address] WBC 16.9 H 4.0-11.0 RBC 5.28 4.60-6.20 HGB 16.9 g/dL 13.5-17.9 HCT 50.4 41.0-54.0 MCV 95.5 fL 80.0-100.0 MCH 32.0 pg 27.0-33.0 MCHC 33.5 g/dL 32.0-37.5 PLT 223 150-400 MPV 10.9 fL 9.1-13.0 RDW 14.0 11.5-14.5 Jun 22, 2024 06:10 PM [facility] COMPREHENSIVE METABOLIC PANEL+MG Specimen Type: PLASMA No comment entered. Ordering Provider: JEVON ZAZUETA Report Released Date/Time: Jun 22, 2024 05:51 PM Reporting Lab: [facility] [address] Performing Lab: [facility] [address] CREATININE 0.7 mg/dL 0.7-1.2 UREA NITROGEN 17 [...] >90 >60 Jun 21, 2024 06:48 PM [facility] URINALYSIS Specimen Type: URINE No comment entered. Ordering Provider: DELIA MARTINEZ Report Released Date/Time: Jun 21, 2024 05:45 PM Reporting Lab: [facility] [address] Performing Lab: [facility] [address] URINE COLOR YELLOW SPECIFIC GRAVITY 1.041 H [...] 500 NEGATIVE Jun 21, 2024 05:34 PM [facility] POC CREATININE Specimen Type: BLOOD No comment entered. Ordering Provider: DELIA MARTINEZ Report Released Date/Time: Jun 21, 2024 06:07 PM Reporting Lab: [facility] [address] Performing Lab: [facility] [address] POC CREATININE 1.1 mg/dL 0.6-1.3 Jun 21, 2024 05:30 PM [facility] POC ABG/LACTATE Specimen Type: VENOUS BLOOD No comment entered. Ordering Provider: DELIA MARTINEZ Report Released Date/Time: Jun 21, 2024 06:07 PM Reporting Lab: [facility] [address] Performing Lab: [facility] [address] POC PH 7.470 H 7.31-7.41 POC PCO2 31.2 mm[Hg] L 41.00-51 .0 0 POC PO2 46 mm[Hg] H 35.0-40.0 POC TCO2 24 mmol/L 24.0-29.0 POC HCO3 22.7 mmol/L L 23.0-28.0 POC BE ECT -1 mmol/L POC SO2 85 H 70-75 POC LACTATE 1.85 mmol/L 0.90-1.70 Jun 21, 2024 05:24 PM [facility] PROTHROMBIN TIME/INR Specimen Type: PLASMA No comment entered. Ordering Provider: DELIA MARTINEZ Report Released Date/Time: Jun 21, 2024 05:30 PM Reporting Lab: [facility] [address] Performing Lab: [facility] [address] .INR 1.2 H 0.8-1.1 .PT 13.9 s H 9.4-12.5 Jun 21, 2024 05:24 PM [facility] LIPASE Specimen Type: PLASMA No comment entered. Ordering Provider: DELIA MARTINEZ Report Released Date/Time: Jun 21, 2024 05:30 PM Reporting Lab: [facility] [address] Performing Lab: [facility] [address] LIPASE 32 U/L <60 Jun 21, 2024 05:24 PM [facility] EXTRA GOLD GEL TUBE Specimen Type: SERUM No comment entered. Ordering Provider: DELIA MARTINEZ Report Released Date/Time: Jun 21, 2024 05:41 PM Reporting Lab: [facility] [address] Performing Lab: [facility] [address] EXTRA GOLD GEL TUBE RECEIVED Jun 21, 2024 05:24 PM [facility] COMPREHENSIVE METABOLIC PANEL+MG Specimen Type: PLASMA No comment entered. Ordering Provider: DELIA MARTINEZ Report Released Date/Time: Jun 21, 2024 05:30 PM Reporting Lab: [facility] [address] Performing Lab: [facility] [address] CREATININE 0.9 mg/dL 0.7-1.2 UREA NITROGEN 29 [...] mg/dL <0.5 Jun 21, 2024 05:24 PM [facility] CBC & DIFF Specimen Type: BLOOD Comment: Manual Differential Performed Ordering Provider: DELIA MARTINEZ Report Released Date/Time: Jun 21, 2024 05:30 PM Reporting Lab: [facility] [address] Performing Lab: [facility] [address] WBC 21.3 H 4.0-11.0 RBC 5.48 4.60-6.20 [...] MORPHOLOGY PRESENT Jun 08, 2024 10:59 AM [facility] PROTHROMBIN TIME/INR Specimen Type: PLASMA No comment entered. Ordering Provider: MARYBETH GRAVES Report Released Date/Time: May 28, 2024 09:02 AM Reporting Lab: [facility] [address] Performing Lab: [facility] [address] .INR 1.0 0.8-1.1 .PT 11.8 s 9.4-12.5 Jun 08, 2024 10:59 AM [facility] HEMOGLOBIN A1C Specimen Type: BLOOD Comment: Values obtained from A1C measurements can vary. For typical A1C assays, a reported value of 7.0 could actually be between 6.7 and 7.3 if measured by a reference method. A reported value of 9.0 could actually be between 8.7 and 9.3. Ref: http://www.ng sp.org/CAPdat a.asp Ordering Provider: MARYBETH GRAVES Report Released Date/Time: May 28, 2024 09:02 AM Reporting Lab: [facility] [address] Performing Lab: [facility] [address] HEMOGLOBIN A1C 4.9 4.0-6.0 Jun 08, 2024 10:59 AM [facility] CBC Specimen Type: BLOOD No comment entered. Ordering Provider: MARYBETH GRAVES Report Released Date/Time: May 28, 2024 09:02 AM Reporting Lab: [facility] [address] Performing Lab: [facility] [address] WBC 16.1 H 4.0-11.0 RBC 5.02 4.60-6.20 HGB 16.0 g/dL 13.5-17.9 HCT 47.1 41.0-54.0 MCV 93.8 fL 80.0-100.0 MCH 31.9 pg 27.0-33.0 MCHC 34.0 g/dL 32.0-37.5 PLT 228 150-400 MPV 10.3 fL 9.1-13.0 RDW 14.6 H 11.5-14.5 Jun 08, 2024 10:59 AM [facility] BASIC METABOLIC PANEL+MG Specimen Type: PLASMA No comment entered. Ordering Provider: MARYBETH GRAVES Report Released Date/Time: May 28, 2024 09:02 AM Reporting Lab: [facility] [address] Performing Lab: [facility] [address] CREATININE 0.9 mg/dL 0.7-1.2 UREA NITROGEN 15 [...] 15, 2024 08:30 AM VA-TOBACCO FORMER USER [facility] Tobacco Use History This section includes a history of the smoking, or tobacco-related health factors, that were collected on or before the date of the Encounter. The data comes from the [place] facility where the Encounter took place. Date/Time Smoking Status/Tobacco Use Comment F acility May 15, 2024 08:30 AM VA-TOBACCO QUIT 15 YRS OR MORE [facility] May 06, 2023 11:30 AM VA-TOBACCO FORMER USER [facility] May 06, 2023 11:30 AM VA-TOBACCO [...] FORMER TOBACCO USER 7Y OR LISETH Hammond [facility] January 07, 2016 08:01 [...] Mar 23, [address] [facility] Radiology Reports: +/- [...] 06:15 PM CHEST 1 VIEW: FLACA WEAVER [id number] -1950 M Exm Date: JUL 18, 2024@18:15 Req Phys: LEISA GOLDEN Pat Loc: 07-18-2024@19:00 Img Loc: MAIN X-RAY Service: [facility] [place] [address] (Case [id number] COMPLETE) CHEST 1 VIEW (RAD Detailed) CPT:98313 Proc Modifiers : PORTABLE EXAM Reason for Study: SOB Clinical History: IS NOT under investigation for COVID-19 or is COVID-19 negative 73 yo with SOB Responsible provider name and phone number to notify for critical findings if other than user placing the order and pager listed below: User placing orders pager: [phone] LAST CREATININE 1.2 (07/17/24) Report Status: Verified Date Reported: JUL 18, 2024 Date Verified: JUL 18, 2024 Subwarehouse Supervisor E-Sig:/ES/CARLOS A CUNNINGHAM DO Report: EXAMINATION: CHEST 1 VIEW Reason for Study: SOB IS NOT under investigation for COVID-19 or is COVID-19 negative 73 yo with SOB Responsible provider name and phone number to notify for critical findings if other than user placing the order and pager listed below: User placing orders pager: [phone] LAST CREATININE 1.2 (07/17/24) SOB TECHNIQUE: Single [...] Interpreting Staff: CARLOS A CUNNINGHAM DO, RADIOLOGIST (Subwarehouse Supervisor) /CARLOS A ROWELL [facility] Jul 16, 2024 07:[address] ABDOMEN/PELVIS: FLACA WEAVER [id number] -1950 Ex Date: JUL 16, 2024@07:49 Req Phys: PREMA BENITEZ Pat Loc: 07-17-2024@09:02 Img Loc: OUTSOURCE CT Service: Unknown (Case [id number] COMPLETE) NON [place] CT ABDOMEN/PELVIS (CT Detailed) CPT:78725 Reason for Study: outside study Clinical History: [...] Diagnostic Code: VERIFIED BY: / *ELECTRONICALLY FILED* [facility] Jul 13, 2024 09:[address] ABDOMEN/PELVIS: FLACA WEAVER [id number] -1950 M Exm Date: JUL 13, 2024@09:41 Req Phys: PREMA BENITEZ Loc: 3ES07-17-2024@09:08 Img Loc: OUTSOURCE CT Service: Unknown (Case [id number] COMPLETE) NON [place] CT ABDOMEN/PELVIS (CT Detailed) CPT:65934 Reason for Study: outside study Clinical History: [...] Diagnostic Code: VERIFIED BY: / *ELECTRONICALLY FILED* [facility] Jul 08, 2024 10:09 AM CHEST 2 VIEWS PA AND LAT: FLACA WEAVER [id number] -1950 M Exm Date: JUL 08, 2024@10:09 Req Phys: KATELYNN PERSON Loc: 2KG07-08-2024@11:49 Img Loc: MAIN X-RAY Service: [place] [address] (Case 24 COMPLETE) CHEST 2 VIEWS PA AND LAT (RAD Detailed) CPT:02850 Reason for Study: Uptrending WBC, POD 5 Clinical History: Maynard IS NOT under investigation for COVID-19 or is COVID-19 negative POD 5, work up for uptrending wbc Responsible provider name and phone number to notify for critical findings if other than user placing the order and pager listed below: User placing orders pager: Katelynn Person LAST CREATININE 0.9 (07/07/24) Report Status: Verified Date Reported: JUL 08, 2024 Date Verified: JUL 08, 2024 Subwarehouse Supervisor E-Sig: Report: CHEST 2 VIEWS PA [...] cardiopulmonary disease. READING PHYSICIAN: Jessica Vaughn M.D. -[phone] 07/08/2024 12:46 EST [facility] National Teleradiology Program [phone] (For Medical Practitioner Use Only) Attention Patients / Veterans: If you have questions or concerns about these test results, please contact your ordering provider or primary care team. Primary Interpreting Staff: RADIOLOGY,OUTSIDE SERVICE, Staff Physician / RADIOLOGY,OUTSIDE SERVICE [facility] Jul 08, 2024 10:[address] (AP) ABDOMEN/PELVIS W CONTRAST: FLACA WEAVER [id number] -1950 M Ex Date: JUL 08, 2024@10:00 Req Phys: KATELYNN PERSON [facility] Loc: 2KG/07-08-2024@12:07 Img Loc: CT IMAGING Service: [place] [address] (Case 22 COMPLETE) CT (AP) ABDOMEN/PELVIS W CONTRAST(CT Detailed) CPT:98883 Contrast Media : Non-ionic Iodinated Reason for [...] PLASMA .CREAT EGFR(CKD-E >90 Ref: >=60 Allergies: (Center only) TERAZOSIN (Mar 13, 2015) Report Status: Verified Date Reported: JUL 08, 2024 Date Verified: JUL 08, 2024 Subwarehouse Supervisor E-Sig: Report: CT (AP) ABDOMEN/PELVIS W [...] as noted above READING PHYSICIAN: Celestino Blanc -[phone] 07/08/2024 13:04 [facility] [employer] [facility] [phone] (For Medical Practitioner Use Only) Attention Patients / Veterans: If you have questions or concerns about these test results, please contact your ordering provider or primary care team. Primary Interpreting Staff: RADIOLOGY,OUTSIDE SERVICE, Staff Physician / RADIOLOGY,OUTSIDE SERVICE [facility] Jun 22, 2024 11:49 AM ABSCESS DRAIN PLACEMENT PERITONEAL (P): FLACA WEAVER [id number] -1950 M Exm Date: JUN 22, 2024@11:49 Req Phys: ANGELA HOLDEN Pat Loc: [facility]/06-22-2024@17:14 Img Loc: INTERVENTIONAL RADIOLOGY Service: [place] [address] (Case [id number] COMPLETE) IR PERITONEAL/RETROPERITONEAL PER(ANI Detailed) CPT:27420 Reason for Study: diverticulitis with abscess (Case 3570 COMPLETE) IR MOD SEDATION 10-22 MIN (ANI Detailed) CPT:72748 Clinical History: IS NOT under investigation for COVID-19 or is COVID-19 negative 73 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 please place abscess drain. Contact number for responsible provider who can be reached for any questions or notifications of critical findings: [phone] n/a LAST CREATININE 0.9 (06/21/24) Report Status: Verified Date Reported: JUN 22, 2024 Date Verified: JUN 22, 2024 Subwarehouse Supervisor E-Sig:/ES/LISA CRUZ MD Report: PROCEDURES: Placement of [...] Using real-time CT fluoroscopy, a 5 Luxembourger Channelkitesis catheter was advanced into the collection in the left pelvis. A wire was coiled in the collection. The tract into the collection was dilated to accommodate the 12 Luxembourger locking pigtail drainage catheter. There was return [...] Primary Interpreting Staff: LISA CRUZ MD, RADIOLOGIST (Subwarehouse Supervisor) /JRT LISA CRUZ [facility] Jun 22, 2024 11:[address] NEEDLE PLACEMENT (P): FLACA WEAVER [id number] -1950 M Exm Date: JUN 22, 2024@11:48 Req Phys: ANGELA HOLDEN Loc: [facility]06-22-2024@17:14 Img Loc: CT IMAGING Service: [place] [address] (Case [id number] COMPLETE) CT SCAN FOR NEEDLE PLACEMENT (CT Detailed) CPT:07064 Reason for Study: l pelvic abscess drain Clinical History: Report Status: Verified Date Reported: JUN 22, 2024 Date Verified: JUN 22, 2024 Subwarehouse Supervisor E-Sig:/ES/LISA CRUZ MD Report: PROCEDURES: Placement of [...] Using real-time CT fluoroscopy, a 5 Luxembourger Channelkitesis catheter was advanced into the collection in the left pelvis. A wire was coiled in the collection. The tract into the collection was dilated to accommodate the 12 Luxembourger locking pigtail drainage catheter. There was return [...] Primary Interpreting Staff: LISA CRUZ MD, RADIOLOGIST (Subwarehouse Supervisor) /JRT LISA CRUZ [facility] Jun 21, 2024 06:[address] (AP) ABDOMEN/PELVIS (P): FLACA WEAVER [id number] -1950 M Exm Date: JUN 21, 2024@18:09 Req Phys: DELIA MARTINEZ Loc: [facility] EMERGENCY DEPT WALK-IN (Re Img Loc: CT IMAGING Service: [place] [address] (Case [id number] COMPLETE) CT (AP) ABDOMEN/PELVIS W CONTRAST(CT Detailed) CPT:45632 Contrast Media : Non-ionic Iodinated Reason for [...] PLASMA .CREAT EGFR(CKD-E >90 Ref: >=60 Allergies: (Center only) TERAZOSIN (Mar 13, 2015) Defer to [...] 21, 2024 Date Verified: JUN 21, 2024 Subwarehouse Supervisor E-Sig:/WYATT/CARLOS A CUNNINGHAM DO Report: EXAMINATION: CT [...] Interpreting Staff: CARLOS A CUNNINGHAM DO, RADIOLOGIST (Subwarehouse Supervisor) /CARLOS A ROWELL [facility] Pathology Reports: +/- 30 days of [...] PM LR MICROBIOLOGY RE PORT: Reporting Lab: [facility] [CLIA# [id number]] [place] [address] Accession [UID]: [id number] [[id number]] Received: Jul 16, 2024@14:41 Collection sample: BLOOD Collection date: Jul 16, 2024 14:07 Provider: LEISA GOLDEN Comment on specimen: R AC, RECEIVED 2 BLOOD CULTURE BOTTLES Test(s) ordered: CULTURE & SUSCEPTIBILITY...... completed: Jul 22, 2024 * BACTERIOLOGY FINAL REPORT => Jul 22, 2024 13:39 TECH CODE: [id number] CULTURE RESULTS: NO GROWTH 5 DAYS Bacteriology Remark(s): THIS REPORT IS FINAL =--=--=--=--=--=--=--=--=--= --=--=--=--=--=--=--=--=--=- -=--=--=--=--=--=--=-- Performing Laboratory: Bacteriology Report Performed By: [facility] [CLIA# [id number]] [place] [address] [facility] Jul 16, 2024 01:54 PM LR MICROBIOLOGY RE PORT: Reporting Lab: [facility] [CLIA# [id number]] [place] [address] Accession [UID]: [id number] [[id number]] Received: Jul 16, 2024@14:41 Collection sample: BLOOD Collection date: Jul 16, 2024 13:54 Provider: LEISA GOLDEN Comment on specimen: L AC, RECEIVED 2 BLOOD CULTURE BOTTLES Test(s) ordered: CULTURE & SUSCEPTIBILITY...... completed: Jul 22, 2024 * BACTERIOLOGY FINAL REPORT => Jul 22, 2024 13:39 TECH CODE: [id number] CULTURE RESULTS: NO GROWTH 5 DAYS Bacteriology Remark(s): THIS REPORT IS FINAL =--=--=--=--=--=--=--=--=--= --=--=--=--=--=--=--=--=--=- -=--=--=--=--=--=--=-- Performing Laboratory: Bacteriology Report Performed By: [facility] [CLIA# [id number]] [place] [address] [facility] Jul 03, 2024 05:59 AM LR SURGICAL PATHOL OGY REPORT: LOCAL TITLE: LR SURGICAL PATHOLOGY REPORT STANDARD TITLE: PATHOLOGY REPORT DATE OF NOTE: JUL 06, 2024@10:40:48 ENTRY DATE: JUL 06, 2024@10:40:48 AUTHOR: EDUARDO PALOMARES EXP COSIGNER: URGENCY: STATUS: COMPLETED $APHDR Reporting Lab: [facility] [CLIA# [id number]] [place] [address] - - - - - - - [...] - PATHOLOGY REPORT Accession No. [id number] - - - - - - - [...] - PATHOLOGY REPORT Accession No. [id number] - - - - - - - [...] Second circumferential surgical margin, en face; E-F: [place] Operator diverticula; G: [place] Operator section of mesentery; H: Random motor vehicle representative section of additional adipose tissue fragment. [...] colonic tissue ring, bisected transversely. [facility]. [facility]: Microscopic examination performed. DIAGNOSIS: 1. Colon, sigmoid, sigmoidectomy-- - Diverticulosis with perforation and focal abscess formation 2. Colon, anastomotic rings, excision-- - Viable colonic mucosa without diagnostic abnormality /wyatt/ EDUARDO PALOMARES MD STAFF PATHOLOGIST Signed Jul 06, 2024@10:40 Performing Laboratory: Surgical Pathology Report Performed By: [facility] [CLIA# [id number]] [place] [address] $FTR - - - - - - [...] - - [employer] STANDARD FORM 515 ID:[id number] SEX:M :1950 AGE: 73 LOC:[id number] ADM:Jun DX:DIVERTICULITIS PCP: Prema Benitez /wyatt/ EDUARDO PALOMARES MD STAFF PATHOLOGIST Signed: 07/06/2024 10:40 EDUARDO PALOMARES [facility] Jun 22, 2024 01:15 PM LR MICROBIOLOGY RE PORT: Reporting Lab: [facility] [CLIA# [id number]] [place] [address] Accession [UID]: [id number] [[id number]] Received: Jun 22, 2024@13:38 Collection sample: FLUID Collection date: Jun 22, 2024 13:15 Provider: ANGELA HOLDEN Comment on specimen: LLQ ABSCESS, RECEIVED IN ANAEROBIC TRANSPORT VIAL Test(s) ordered: GRAM STAIN.................... completed: Jun 22, 2024 15:03 CULTURE & SUSCEPTIBILITY...... completed: Jun 25, 2024 * BACTERIOLOGY FINAL REPORT => Jun 25, 2024 10:56 TECH CODE: [id number] GRAM STAIN: DIRECT SMEAR of specimen before [...] -=--=--=--=--=--=--=-- Performing Laboratory: Bacteriology Report Performed By: [facility] [CLIA# [id number]] [place] [address] [facility] Jun 22, 2024 01:15 PM LR MICROBIOLOGY RE PORT: Reporting Lab: [facility] [CLIA# [id number]] [place] [address] Accession [UID]: [id number] [[id number]] Received: Jun 22, 2024@13:38 Collection sample: FLUID Collection date: Jun 22, 2024 13:15 Provider: ANGELA HOLDEN Comment on specimen: LLQ ABSCESS, RECEIVED IN ANAEROBIC TRANSPORT VIAL Test(s) ordered: ANAEROBIC CULTURE............. completed: Jun 28, 2024 * BACTERIOLOGY FINAL REPORT => Jun 28, 2024 10:08 TECH CODE: [id number] CULTURE RESULTS: HEAVY GROWTH MIXED ANAEROBES Comment: including the followin+ Bacteroides fragilis 4+ Bacteroides vulgatus 4+ Clostridium innocuum Beta-lactamase negative 4+ Bacteroides caccae 4+ Parvimonas micra 4+ Bacteroides uniformis 4+ Gemella morbillorum 4+ anaerobic small, Gram Positive Rods 4+ Bacteroides thetaiotaomicron Standard workup is now complete. Bacteriology Remark(s): THIS REPORT IS FINAL =--=--=--=--=--=--=--=--=--= --=--=--=--=--=--=--=--=--=- -=--=--=--=--=--=--=-- Performing Laboratory: Bacteriology Report Performed By: [facility] [CLIA# [id number]] [place] [address] [facility] Jun 21, 2024 06:12 PM LR MICROBIOLOGY RE PORT: Reporting Lab: [facility] [CLIA# [id number]] [place] [address] Accession [UID]: [id number] [[id number]] Received: Jun 21, 2024@18:12 Collection sample: BLOOD [...] -=--=--=--=--=--=--=-- Performing Laboratory: Bacteriology Report Performed By: [facility] [IA# [id number]] [place] [address] [facility] Jun 21, 2024 06:11 PM LR MICROBIOLOGY RE PORT: Reporting Lab: [facility] [IA# [id number]] [place] [address] Accession [UID]: [id number] [[id number]] Received: Jun 21, 2024@18:11 Collection sample: BLOOD [...] -=--=--=--=--=--=--=-- Performing Laboratory: Bacteriology Report Performed By: [facility] [IA# [id number]] [place] [address] [facility] Jun 08, 2024 11:00 AM LR MICROBIOLOGY RE PORT: Reporting Lab: [facility] [[facility]# [id number]] [place] [address] Accession [UID]: [id number] [[id number]] Received: Jun 08, 2024@11:00 Collection sample: URINE Collection date: Jun 08, 2024 11:00 Provider: MARYBETH GRAVES Comment on specimen: urine Test(s) ordered: CULTURE & SUSCEPTIBILITY...... completed: Jun 09, 2024 * BACTERIOLOGY FINAL REPORT => Jun 09, 2024 19:12 TECH CODE: [id number] CULTURE RESULTS: ESCHERICHIA COLI - Quantity: >100,000 [...] -=--=--=--=--=--=--=-- Performing Laboratory: Bacteriology Report Performed By: [facility] [CLIA# [id number]] [place] [address] [facility] Encounter Notes: All associated encounter notes This section contains the clinical notes associated to the Encounter. Date/Time Encounter Note(s) Provider Source Jul 10, 2024 11:34 AM WOUND CARE NOTE: LOCAL TITLE: WO NURSE F/U NOTE STANDARD TITLE: WOUND CARE NOTE DATE OF NOTE: JUL 10, 2024@11:34 ENTRY DATE: JUL 10, 2024@11:34:45 AUTHOR: MARTI LAYTON COSIGNER: URGENCY: STATUS: COMPLETED WO NURSE F/U NOTE Has ADDENDA Solar Designer/Installer visited Maynard to continue new ostomy teaching. states We tried calling you, the bag has already been changed. Solar Designer/Installer received no alerts/calls/pages regarding pouch change. Maynard declines further teaching. Solar Designer/Installer reinforced that Maynard check out the blue folder at bedside with new stoma information with educational handouts for reference. Solar Designer/Installer also verifed with pharmacy that pouching system (barriers and pouches, and supplies) are available for pickup at pharmacy this morning so he has pouches for home. denies homecare per chart review this morning. [facility] will plan to see at colon-rectal postop appt on 07/16 to address any pouching needs as a RTC. /EARLENE Beckman, RN, CWOCN Certified Wound, Ostomy, Continence Nurse Signed: 07/10/2024 11:44 07/16/2024 ADDENDUM STATUS: COMPLETED Maynard's CR clinic appt still pending. Per chart review, on his way to community ER. RTC for new DLI teaching placed for wound clinic for 6 week f/u. /EARLENE Beckman, RN, CWOCN Certified Wound, Ostomy, Continence Nurse Signed: 07/16/2024 08:13 MARTI LAYTON [facility] Jul 10, 2024 11:15 AM PASTORAL CARE NOTE: LOCAL TITLE: HOME DEMONSTRATOR-VISITATION NOTE STANDARD TITLE: PASTORAL CARE NOTE DATE OF NOTE: JUL 10, 2024@11:15 ENTRY DATE: JUL 10, 2024@11:16:11 AUTHOR: LEILANI HOLLIDAY COSIGNER: URGENCY: STATUS: COMPLETED HOME DEMONSTRATOR VISIT DECLINE NOTE SUBJECTIVE: Routine Agricultural Equipment Test Engineer Visit OBJECTIVE: Mobile Ui Designer met with at his bedside for a quick visit. ASSESSMENT/SPIRITUAL DISTRESS OR COPING: - Maynard stated that he did not want a visitor at this time. - stated that he is discharging today. - Maynard relayed, I am so happy to get out of here, the care here is shitty. INTERVENTION: - Mobile Ui Designer complied with declining the visit. /wyatt/ LEILANI HOLLIDAY MDIV, [facility] Staff Mobile Ui Designer Signed: 07/10/2024 11:21 LEILANI HOLLIDAY [facility] Jul 10, 2024 11:15 AM DISCHARGE SUMMARY: [...] and coordination of care for this . /wyatt/ RENEE RICHARDSON General Surgery Resident Signed: 07/10/2024 10:13 /wyatt/ WENCESLAO POON MD STAFF SURGEON, COLON/RECTAL Cosigned: [...] he restarts furosemide. He will continue lisinopril. /wyatt/ KIN POLANCO MD PHYSICIAN Signed: 07/10/2024 14:34 Receipt Acknowledged By: 07/10/2024 15:53 /wyatt/ Prema Benitez MD Physician RENEE RICHARDSON [facility] Jul 10, 2024 11:15 AM ADDENDUM: LOCAL [...] he restarts furosemide. He will continue lisinopril. /wyatt/ KIN POLANCO MD PHYSICIAN Signed: 07/10/2024 14:34 Receipt Acknowledged By: 07/10/2024 15:53 /wyatt/ Prema Benitez MD Physician --- Original Document --- [...] and coordination of care for this . /wyatt/ RENEE RIHCARDSON General Surgery Resident Signed: 07/10/2024 10:13 KIN POLANCO [facility] Jul 10, 2024 10:40 AM NONVA NOTE: LOCAL TITLE: COMMUNITY CARE-CARE COORDINATION PLAN NOTE STANDARD TITLE: NONVA NOTE DATE OF NOTE: JUL 10, 2024@10:40 ENTRY DATE: JUL 10, 2024@10:40:47 AUTHOR: HARPREET DARLING EXP COSIGNER: URGENCY: STATUS: COMPLETED In reference to Community Care Consult #[[id number]], dated [07/06/2024], consult cancelled d/t: Spoke with [...] later consult can be resubmitted or reentered. /wyatt/ HARPREET DARLING RN COMMUNITY CARE MEDIA SPECIALIST Signed: 07/10/2024 10:41 Receipt Acknowledged By: 07/10/2024 15:53 /es/ Prema Benitez MD Physician 07/10/2024 11:02 /es/ GUERITA AGUILA RN REGISTERED NURSE YOUNG DARLING [facility] Jul 10, 2024 09:45 AM NURSING DISCHARGE NOTE: LOCAL TITLE: [facility] NURSING DISCHARGE SUMMARY STANDARD TITLE: NURSING [...] Contact Name and Phone Number are correct: MEGFLACA YAMIL Condition: Alert Skin Condition: Intact Incision: Yes, [...] not readable or re-constructible to any degree. /wyatt/ Naima Tirado RN registered nurse Signed: 07/10/2024 11:30 NAIMA TIRADO [facility] Jul 10, 2024 09:35 AM EDUCATION DISCHARGE [...] related to your inpatient care at the [facility] or your future care in the [facility], call the Call Center or After Hour numbers listed below. If you receive care at another [place] facility or with a community provider, you will need to call them for questions about your future care. -Call Center Tuesday-Tuesday, 7:30-4:30 at [phone] or Toll Free -After Hours- toll-free -Outpatient [...] No Restriction. Wound Condition: Clean/Dry/Healing Wound Care: Mcdonough to be removed in 1 week. 2 [...] JUANITO PACT IRIS Primary Care Provider: PREMA BENITEZ No Associate Provider Assigned. Attending Physician: WENCESLAO POON You are being discharged to: Home Phone number you can be contacted at for the next 2 weeks: Continuing care needs: If you receive care at Center you will need to call the Primary Care Call Center number at [phone]. If you receive care at another [place] facility or community provider, you will need to call them to arrange your follow up care. For surgical patients - If you don't receive a follow up clinic appointment within a week, please call the Call Center at [phone]. Future appointments: No data available A copy [...] prior to discharge for suiciderisk, using the Hart-Suicide Severity Rating Scale (C-SSRS). If theC-SSRS results [...] Care, Acute Rehab, or CLC C-SSRS Screening Hart Suicide Severity Rating Scale (C-SSRS) screener 1.?Over [...] required due to responses to other questions. /wyatt/ Naima Tirado RN registered nurse Signed: 07/10/2024 09:41 NAIMA TIRADO [facility] Jul 10, 2024 12:12 AM NURSING INPATIENT NOTE: LOCAL TITLE: [facility] NURSING PROGRESS NOTE STANDARD TITLE: NURSING INPATIENT NOTE DATE OF NOTE: JUL 10, 2024@00:12 ENTRY DATE: JUL 10, 2024@00:12:10 AUTHOR: CEDRIC JONES EXP COSIGNER: URGENCY: STATUS: COMPLETED Nursing Shift Note Nursing care provided from [phone] Highlights from shift: Alert and oriented x [...] Flaps: Incision 1: Location: abdominal incision Closure: Mcdonough Stabilization: None Surrounding tissue: Intact Wound drainage none. Skin Interventions performed this shift: Patient's heels elevated with pressure relief boots or pillows under calves. Patient kept clean and dry with barrier cream applied as ordered. Head of Bed kept below 30 degrees unless otherwise ordered. /wyatt/ CEDRIC JONES BSN, RN REGISTERED NURSE Signed: 07/10/2024 07:30 CEDRIC JONES [facility] Jul 09, 2024 09:20 PM NURSING INPATIENT NOTE: LOCAL TITLE: [facility] NURSING PROGRESS NOTE STANDARD TITLE: NURSING INPATIENT NOTE DATE OF NOTE: JUL 09, 2024@21:20 ENTRY DATE: JUL 09, 2024@21:20:55 AUTHOR: PAOLA RAMÍREZ COSIGNER: URGENCY: STATUS: COMPLETED Nursing Shift Note Nursing care provided from 1530 to 2400 Highlights from shift: is A&OX4, able to make needs known, [...] kept below 30 degrees unless otherwise ordered. /wyatt/ PAOLA RAMÍREZ RN Signed: 07/09/2024 23:59 PAOLA RAMÍREZ [facility] Jul 09, 2024 01:46 PM NURSING INPATIENT NOTE: LOCAL TITLE: [facility] NURSING PROGRESS NOTE STANDARD TITLE: NURSING [...] PLASMA (06/21/24 17:24) Nursing care provided from [phone] Highlights from shift: Alert and oriented x [...] Flaps: Incision 1: Location: Abdominal midline Closure: Mcdonough Stabilization: None Wound drainage none. OSTOMY: GASTROINTESTINAL: Type: Ileostomy Stoma: New Stoma Description: Round Beefy red Surrounding tissue: Usual for ethnicity Ostomy Management: Independent Skin Interventions performed this shift: Device(s) removed and skin underneath was inspected. Head of Bed kept below 30 degrees unless otherwise ordered. /wyatt/ YONATHAN BRASHER SKIVER HAND NURSE Signed: 07/09/2024 15:31 YONATHAN BRASHER [facility] Jul 09, 2024 08:44 AM PRIMARY CARE [...] his insurance and will get care at [facility]. Asked patient review of system and he [...] replaced CO2 24 (07/08/24) ASSESSMENT AND PLAN FLACA WEAVER is a 73 y/o with a PMHx of HFpEF, HTN, CAD with PCI 2016, obesity, left gynecomastia, JUANJOSE(not using CPAP), BL GAIL aneurysms, chronic diverticulitis with colovesicular fistula was admitted on 07/03/2024 for cystourethroscopy and bilateral placement of 5 Luxembourger open-ended catheters for patient getting sigmoidectomy and [...] HOLLOWAY Hospitalist Signed: 07/09/2024 20:25 BERTA HOLLOWAY [facility] Jul 09, 2024 06:47 AM COLON & [...] to arouse and RR<8). Call provider or POUNCER MACHINE. May repeat every 2-3 min up to [...] INFUSE OVER 30 Minutes Cont zosyn until 07/09 - 10PM IVPB Q6H 13) POTASSIUM CHLORIDE [...] Discussed with Dr. Maurice Additional Secondary Diagnoses /wyatt/ HERMAN RAYGOZA COLORECTAL FELLOW Signed: 07/09/2024 07:04 HERMAN RAYGOZA [facility] Jul 08, 2024 10:24 PM NURSING INPATIENT NOTE: LOCAL TITLE: [facility] NURSING PROGRESS NOTE STANDARD TITLE: NURSING INPATIENT NOTE DATE OF NOTE: JUL 08, 2024@22:24 ENTRY DATE: JUL 08, 2024@22:24:23 AUTHOR: ALIA PINTO EXP COSIGNER: URGENCY: STATUS: COMPLETED Nursing Shift Note Nursing care provided from [phone] Highlights from shift: in bed at start of shift. Reports 3/10 pain and discomfort/nausea in abdomen- PRN zofran administered 2100 and 0330. PRN effective. Throughout tour, Maynard refused scheduled tylenol and methocarbomal. Pain became more elevated, PRN oxycodone was administered 5 mg. A&Ox4. Able to make needs known. Uses call light appropriately. Lung sounds clear, diminished in bases. Bowel sounds active in all quads. LLQ ostomy, stoma healthy pink. RLQ JUAN, gauze in place at insertion site- CDI. serosangious drainage. Pulses palpable. Maynard independent with tranfers and ostomy cares. Silverlon dressing covering abdominal incision CDI. Maynard receiving NS 0.9 at rate of 50 [...] Skin Interventions performed this shift: Patient turned [id number] or as appropriate while in bed. Device(s) removed and skin underneath was inspected. Head of Bed kept below 30 degrees unless otherwise ordered. /wyatt/ ALIA CHRISTIANSON, RN Signed: 07/09/2024 07:04 ALIA PINTO [facility] Jul 08, 2024 07:18 PM NURSING INPATIENT NOTE: LOCAL TITLE: [facility] NURSING PROGRESS NOTE STANDARD TITLE: NURSING INPATIENT NOTE DATE OF NOTE: JUL 08, 2024@19:18 ENTRY DATE: JUL 08, 2024@19:18:45 AUTHOR: YONATHAN BRASHER EXP COSIGNER: URGENCY: STATUS: COMPLETED Nursing Shift Note Nursing care provided from Operative Procedure(s) laproscopic converted to open sigmoid [...] Flaps: Incision 1: Location: Abdominal midline Closure: Mcdonough Wound drainage none. OSTOMY: GASTROINTESTINAL: Type: Ileostomy Stoma: New Stoma Description: Round Beefy red Surrounding tissue: Usual for ethnicity Intact Skin Interventions performed this shift: Device(s) removed and skin underneath was inspected. Head of Bed kept below 30 degrees unless otherwise ordered. /wyatt/ YONATHAN BRASHER SKIVER HAND NURSE Signed: 07/08/2024 19:55 YONATHAN BRASHER [facility] Jul 08, 2024 11:15 AM COLON & [...] to arouse and RR<8). Call provider or POUNCER MACHINE. May repeat every 2-3 min up to 3 total doses. Administer INTRAMUSCULARLY if no IV access. 11) NITROGLYCERIN TAB,SUBLINGUAL 0.4MG SL QDAY PRN for ACTIVE chest pain 12) ONDANSETRON TAB 8MG PO Q6H PRN FOR NAUSEA ACTIVE 13) OXYCODONE TAB 5MG - 10MG PO Q4H PRN Sliding Scale - ACTIVE 1-01/05 pain 5MG, 6-06/07 pain 10 MG 14) PIPERACILLIN/TAZOBACTAM 3.375GM 50ML INJ in ACTIVE PIPERACIL/TAZOB 3.375GM PREMIX 50 ML INFUSE OVER 30 Minutes Cont zosyn until 07/09 - 10PM IVPB Q6H 15) PROCHLORPERAZINE INJ [...] with CRS fellow who discussed with staff /wyatt/ KATELYNN PERSON PLASTIC/RESIDENT Signed: 07/08/2024 11:27 Receipt Acknowledged By: 07/13/2024 19:35 /wyatt/ WENCESLAO POON MD STAFF SURGEON, COLON/RECTAL KATELYNN PERSON [facility] Jul 08, 2024 09:17 AM PRIMARY CARE [...] reviewed Chest x-ray reviewed ASSESSMENT AND PLAN FLACA WEAVER is a 73 y/o with a PMHx of CAD, HTN, HLD, HFrEF, CKD with development of colovesicular fistula and abscess formation underwent cystoscopy and bilateral ureteral stent placement as well as laparoscopic conversion of open sigmoid colectomy, splenic flexure mobilization, diverting loop ileostomy and flexible sigmoidoscopy, cystoscopy ureteroscopy and bilateral placement of 5 Luxembourger open-ended catheters and ureteral Tracey catheter placement [...] with SOD or CRS team about recommendations /wyatt/ BERTA HOLLOWAY Hospitalist Signed: 07/08/2024 17:59 BERTA HOLLOWAY [facility] Jul 07, 2024 11:00 PM NURSING INPATIENT NOTE: LOCAL TITLE: [facility] NURSING PROGRESS NOTE STANDARD TITLE: NURSING INPATIENT NOTE DATE OF NOTE: JUL 07, 2024@23:00 ENTRY DATE: JUL 07, 2024@23:00:28 AUTHOR: ALIA PINTO EXP COSIGNER: URGENCY: STATUS: COMPLETED Nursing Shift Note Nursing care provided from [phone] Highlights from shift: in bed at start of shift. Maynard reports pain 5/10 in abdominal area. Scheduled pain medication administered. VSS. Bowel sounds active. Lung sounds clear. 2100 and 0500 zosyn administered. Solar Designer/Installer and Veterans agreed to be diligent upon checking ileostomy bag to prevent leakage and the need for a bag change, Maynard tolerating fluids well. Maynard describes not having much of an appetite [...] Skin Interventions performed this shift: Patient turned [id number] or as appropriate while in bed. /wyatt/ ALIA CHRISTIANSON, RN Signed: 07/08/2024 06:22 ALIA PINTO [facility] Jul 07, 2024 06:26 PM COLON & RECTAL SURGERY NOTE: LOCAL TITLE: COLON-RECTAL INPT PROGRESS NOTE STANDARD TITLE: COLON & RECTAL SURGERY NOTE DATE OF NOTE: JUL 07, 2024@18:26 ENTRY DATE: JUL 07, 2024@18:26:45 AUTHOR: AYLA MAYEN EXP COSIGNER: URGENCY: STATUS: COMPLETED Brief CRS Note Plan to continue Zosyn through tonight (end date now 11 PM) given leukocytosis. Repeat CBC tomorrow to trend WBC. Ayla Mayen DO General Surgery PGY-2 /es/ Ayla Mayen DO RESIDENT, GEN SURG Signed: 07/07/2024 18:28 AYLA MAYEN [facility] Jul 07, 2024 03:46 PM PRIMARY CARE [...] to arouse and RR<8). Call provider or POUNCER MACHINE. May repeat every 2-3 min up to [...] last day planned 11 in the PM. # Intermittent bradycardia, appears chronic # Known 2nd degree AV block type I (Wenckebach) At times HR's down to mid 40's, [...] q daily. Diet: [place] healthy. IVF: None. /wyatt/ Jevon Zazueta, PATTI, SMOOTH PLATER Nurse Practitioner, Specialty Care-Surgery Signed: 07/07/2024 15:57 [...] coverage? --Will defer to the Colorectal team. /wyatt/ Jevon Zazueta CNP, SMOOTH PLATER Nurse Practitioner, Specialty Care-Surgery Signed: 07/07/2024 18:22 JEVON ZAZUETA [facility] Jul 07, 2024 03:37 PM COLON & [...] to arouse and RR<8). Call provider or POUNCER MACHINE. May repeat every 2-3 min up to [...] GEN SURG Signed: 07/07/2024 15:50 AYLA MAYEN [facility] Jul 07, 2024 09:54 AM NURSING INPATIENT NOTE: LOCAL TITLE: [facility] NURSING PROGRESS NOTE STANDARD TITLE: NURSING INPATIENT NOTE DATE OF NOTE: JUL 07, 2024@09:54 ENTRY DATE: JUL 07, 2024@09:54:16 AUTHOR: ZACKARY JOSE EXP COSIGNER: URGENCY: STATUS: COMPLETED [facility] NURSING PROGRESS NOTE Has ADDENDA Nursing Shift Note Nursing care provided from [phone] Highlights from shift: Alert and oriented, able [...] ADDENDUM STATUS: COMPLETED Cared for patient from [phone] Operative Procedure(s) laproscopic converted to open sigmoid [...] room independently without issue /es/ YONATHAN BRASHER, SKIVER HAND NURSE Signed: 07/07/2024 20:03 ZACKARY JOSE [facility] Jul 07, 2024 02:08 AM NURSING INPATIENT NOTE: LOCAL TITLE: [facility] NURSING PROGRESS NOTE STANDARD TITLE: NURSING INPATIENT NOTE DATE OF NOTE: JUL 07, 2024@02:08 ENTRY DATE: JUL 07, 2024@02:08:45 AUTHOR: ALIA PINTO EXP COSIGNER: URGENCY: STATUS: COMPLETED Nursing Shift Note Nursing care provided from [phone] Highlights from shift: in bed at start [...] I can't be doing this at home. Maynard expresses no appetite at this time but [...] Skin Interventions performed this shift: Patient turned [id number] or as appropriate while in bed. /wyatt/ ALIA CHRISTIANSON, RN Signed: 07/07/2024 07:21 ALIA PINTO [facility] Jul 06, 2024 04:27 PM NURSING INPATIENT NOTE: LOCAL TITLE: [facility] NURSING PROGRESS NOTE STANDARD TITLE: NURSING INPATIENT NOTE DATE OF NOTE: JUL 06, 2024@16:27 ENTRY DATE: JUL 06, 2024@16:27:59 AUTHOR: YONATHAN BRASHER EXP COSIGNER: URGENCY: STATUS: COMPLETED Nursing Shift [...] SODIUM 138 (07/06/24) Nursing care provided from [phone] Highlights from shift: Alert and oriented x [...] as he states it doesn't smell good, policy writer removed tray to prevent emesis. Voiding per toilet without issue. Abdominal midline incision C/D/i per silverhoneyn. LFA PIV patent. See ICCA for detailed [...] kept below 30 degrees unless otherwise ordered. /wyatt/ YONATHAN BRASHER SKIVER HAND NURSE Signed: 07/06/2024 19:26 YONATHAN BRASHER [facility] Jul 06, 2024 03:20 PM WOUND CARE NOTE: LOCAL TITLE: WOC NURSE F/U NOTE STANDARD TITLE: WOUND CARE NOTE DATE OF NOTE: JUL 06, 2024@15:20 ENTRY DATE: JUL 06, 2024@15:20:44 AUTHOR: MARTI LAYTON COSIGNER: URGENCY: STATUS: COMPLETED WOUND OSTOMY CONTINENCE ([facility]) NURSING ASSESSMENT: REASON FOR CONSULT: new DLI [...] SEE VISTA IMAGING FOR PHOTOS ASSESSMENT: Vet and present for teaching, retained much of the information from yesterday, providing teach back to . Cut his own barrier. Sat for pouch application, assisted with pulling up belly and flattening out rounded medial abdomen area for pouching bulging topography. Has been emptying his own pouch on his own. -Ileostomy booklet provided, Maynard did not want to go through it with policy writer, left in room for review FOCAL SKIN INSPECTION ASSESSMENT -L side abdominal drain present, anchored with suture, small serosanguineous fluid in bulb -lap sites intact per glue, CHANI -midline incision Silvalon dressing intact Pouch education: [...] the weekend, send spare ones home at ga. OSTOMY ASSESSMENT STOMA TYPE & LOCATION: DLI, [...] PRN by nursing staff (WOC not available Maynard's Day) ACTIVITY ORDERS/RECOMMENDATIONS: no restrictions related to wound care at this time ILEOSTOMY CARES: Maynard to empty with supervision into toilet or graduated cylinder. WOC to change/educate MWF on pouching. Nursing to change pouch PRN for leaking. Please use jung stock pouch measured at 1-09/05 cutout if needed. Spare cut-to-fit 2 pc [...] it off with a tissue -Using a [employer] No Sting Barrier film, DAB it over [...] triage number provided to Vet (business hours) [phone], opt 6 SUPPLIES: - pouching system: OfficeDrop 2 pc, New Image, Red System convex cut to fit barrier H#[id number] lock and roll drainable pouch with filter H#[id number] - skin barrier film - Shady ring - powder - gauze - adhesive remover FOLLOW UP: WOC will continue to follow daily for teaching this week, WOC out of office on weekends and federal holidays. WOC will place RTC appt or cotreat at 6 wk f/u visit in CR clinic upon dc. /wyatt/ MARTI LAYTON BS, RN, CWOCN Certified Wound, Ostomy, Continence Nurse Signed: 07/06/2024 15:34 MARTI LAYTON [facility] Jul 06, 2024 11:00 AM NUTRITION CONSULT: [...] liquid diet yesterday. 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 Requesting bland/low fiber foods (knows what he can tolerate due to previous diverticulitis) for next 1-2 days at which point he feels his symptoms and intake will improve Estimated nutrient intake: ~500 kcals, ~15-20 grams protein Comparative standards (based on adjusted body weight of 80 kg) Calories: 6992-2924 kcals/day (based on 30-35 kcals/kg) Protein: 96-120 g/day (based on 1.2-1.5 g/kg) Fluid: 3055-2563 mls/day (1 ml/kcal) Diet order: [place] HEALTHY Malnutrition assessment (per AND/ASPEN Consensus Statement, 2012): Dietitian does not suspect malnutrition at this time, therefore, physical assessment not conducted DIAGNOSIS Problem: Inadequate protein-energy intake Etiology: intermittent nausea Signs/symptoms: intake meeting 25% of kcal and protein needs INTERVENTION: Nutrition prescription: [place] Healthy Manage composition of oral intake: Food [...] Follow up: 5-7 days if still inpatient /wyatt/ LINA SUBRAMANIAN REGISTERED DIETITIAN Signed: 07/06/2024 11:17 LINA SUBRAMANIAN [facility] Jul 06, 2024 10:40 AM PATHOLOGY REPORT: LOCAL TITLE: LR SURGICAL PATHOLOGY REPORT STANDARD TITLE: PATHOLOGY REPORT DATE OF NOTE: JUL 06, 2024@10:40:48 ENTRY DATE: JUL 06, 2024@10:40:48 AUTHOR: EDUARDO PALOMARES EXP COSIGNER: URGENCY: STATUS: COMPLETED $APHDR Reporting Lab: [facility] [CLIA# [id number]] [place] [address] - - - - - - - [...] - PATHOLOGY REPORT Accession No. [id number] - - - - - - - [...] - PATHOLOGY REPORT Accession No. [id number] - - - - - - - [...] Second circumferential surgical margin, en face; E-F: Black Mill Operator diverticula; G: Black Mill Operator section of mesentery; H: Random motor vehicle representative section of additional adipose tissue fragment. [...] colonic tissue ring, bisected transversely. [facility] Microscopic examination performed. DIAGNOSIS: 1. Colon, sigmoid, sigmoidectomy-- - Diverticulosis with perforation and focal abscess formation 2. Colon, anastomotic rings, excision-- - Viable colonic mucosa without diagnostic abnormality /wyatt/ EDUARDO PALOMARES MD STAFF PATHOLOGIST Signed Jul 06, 2024@10:40 Performing Laboratory: Surgical Pathology Report Performed By: [facility] [CLIA# [id number]] [place] [address] $FTR - - - - - - [...] - - FLACA WEAVER STANDARD FORM 515 ID:[id number] SEX:M :1950 AGE: 73 LOC:20706 ADM:Jun DX:DIVERTICULITIS PCP: Prema Benitez /wyatt/ EDUARDO PALOMARES MD STAFF PATHOLOGIST Signed: 07/06/2024 10:40 EDUARDO PALOMARES [facility] Jul 06, 2024 01:31 AM NURSING INPATIENT NOTE: LOCAL TITLE: [facility] NURSING PROGRESS NOTE STANDARD TITLE: NURSING [...] Skin Interventions performed this shift: Patient turned [id number] or as appropriate while in bed. Patient's [...] REGISTERED NURSE Signed: 07/06/2024 07:36 UBALDO TAM [facility] Jul 05, 2024 11:42 PM NURSING NOTE: LOCAL TITLE: [facility] NSG IV INSERTION AND MAINTENANCE STANDARD TITLE: NURSING NOTE DATE OF NOTE: JUL 05, 2024@23:42 ENTRY DATE: JUL 05, 2024@23:42:19 AUTHOR: OSORIO FRANKEL COSIGNER: URGENCY: STATUS: COMPLETED Version 2.2 Charting in accordance with [place] APPROVED HUSLIA STANDARD (NVAES) ACUTE INPATIENT/REHABILITATION NURSING ADMISSION SCREENING, ASSESSMENT, AND STANDARDS OF CARE ====== IV Line Insertion and Maintenance ====== ====== Peripheral IV ====== Line #1: Insertion: Date/Time: Jun@23:30 Inserted by (name): policy writer Insertion Aid: Ultrasound guided Location: Left, Forearm Gauge: 20 x 1.75 Dressing Condition: Clean, dry, intact Transparent dressing Site Condition: No redness, swelling, pain Line Status: Capped Flushed 10 mL NS Positive blood return /es/ Osorio Frankel LPN LPN [facility] [place] Signed: 07/05/2024 23:43 OSORIO FRANKEL [facility] Jul 05, 2024 03:07 PM NURSING INPATIENT NOTE: LOCAL TITLE: [facility] NURSING PROGRESS NOTE STANDARD TITLE: NURSING INPATIENT NOTE DATE OF NOTE: JUL 05, 2024@15:07 ENTRY DATE: JUL 05, 2024@15:07:22 AUTHOR: MARTI LEE EXP COSIGNER: URGENCY: STATUS: COMPLETED [facility] NURSING PROGRESS NOTE Has ADDENDA Nursing Shift Note Nursing care provided from [phone] Highlights from shift: Telemetry, continuous O2 sats, and STABLE ATTENDANT discontinued at 1400 per orders. Pain managed per PO pain medications this evening. Primary concern of pt is nausea with limited relief from zofran. SOD notified. Olgan changed this shift due to soiled dressing. See below for details. Large episode of ileostomy leaking this morning. Changed per WOCN. Scant amount of dark green liquid output since. Pt with poor dietary intake, declined most food. Radiology Supervisor consult ordered by policy writer. JUAN draining sanguineous drainge. 20 mL [...] Skin Interventions performed this shift: Patient turned [id number] or as appropriate while in bed. Patient's heels elevated with pressure relief boots or pillows under calves. Patient kept clean and dry with barrier cream applied as ordered. Device(s) removed and skin underneath was inspected. Head of Bed kept below 30 degrees unless otherwise ordered. /wyatt/ MARTI LEE RN Registered Nurse Signed: 07/05/2024 [...] Temp 98.3 96% on RA pain 03/07 /wyatt/ MASOOD BLACK RN REGISTERED NURSE Signed: 07/06/2024 00:11 MARTI LEE [facility] Jul 05, 2024 12:20 PM WOUND CARE NOTE: LOCAL TITLE: WO NURSE F/U NOTE STANDARD TITLE: WOUND CARE NOTE DATE OF NOTE: JUL 05, 2024@12:20 ENTRY DATE: JUL 05, 2024@12:20:25 AUTHOR: MARTI LAYTON COSIGNER: URGENCY: STATUS: COMPLETED WOUND OSTOMY CONTINENCE ([facility]) NURSING ASSESSMENT: REASON FOR CONSULT: new DLI [...] . No additional CRC surveillance recommended by assessment consultant. 9. Decreased vitamin D - 02.24.2017 [...] - By 02.13.[address] 03.14.2020 OSH(ED [place], [place]): Pt. Declined Admission. 03.14.2020 CT with Mild Sigmoid diverticulitis. 04.23.2020 ED(OSH): Declined admission. 17. 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 18. Ex-tobacco user 19. Impaired Fasting Glucose ([facility] [id number]) - 02.26.2014 A1c 5.8%. 20. Adrenal mass [...] recommended. 24. Hiatal hernia 25. Shoulder Pain ([facility] [id number]) 26. Trigger finger 27. [facility] Primary Care - Community Care Primary: Dr. Cathi Simeon, [facility] and [facility], [place] [address]. WOUND HISTORY: initial education session this admission VERBAL CONSENT OBTAINED FOR PHOTOS, PLEASE SEE [employer]AG[employer] FOR PHOTOS ASSESSMENT: Vet reports a leaking pouch, had it replaced or emptied (he was not sure which) this AM. Upon assessment, pouch barrier is holding, though tape borders remain unsecured with paper backing in place. Vet stood in bathroom in front of mirror with policy writer to learn about pouching. FOCAL SKIN INSPECTION ASSESSMENT -PIP in place to heels and sacrum -L side abdominal drain present, anchored with suture, small serosanguineous fluid in bulb -lap sites intact per glue, CHANI -midline incision intact per stapes, some scant serous drainage from umbilicus, Silvalon dressing changed Pouch education: Maynard actively listenened and verablized understanding of pouching. [...] implications regarding possibility of rectal bowel movements/mucus. Maynard agrees to begin practicing emptying his pouch [...] wound care at this time ILEOSTOMY CARES: Maynard to empty with supervision into toilet or graduated cylinder. WOC to change/educate Maynard MWF on pouching. Nursing to change pouch PRN for leaking. Please use jung stock pouch measured at 1-09/05 cutout if needed. Spare cut-to-fit 2 pc [...] it off with a tissue -Using a [employer] No Sting Barrier film, DAB it over [...] and assistance if dc'ing over weekend or Maynard's Day SUPPLIES: - pouching system: OfficeDrop 2 pc, New Image, Red System convex cut to fit barrier [id number] lock and roll drainable pouch with filter H#[id number] - skin barrier film - Shady ring - powder - gauze - adhesive remover FOLLOW UP: WOC will continue to follow daily for teaching this week, WOC out of office on weekends and federal holidays. WOC will place RTC appt or cotreat at 6 wk f/u visit in CR clinic upon dc. /wyatt/ MARTI LAYTON BS, RN, CWOCN Certified Wound, Ostomy, Continence Nurse Signed: 07/05/2024 13:09 MARTI LAYTON [facility] Jul 05, 2024 11:48 AM COLON & RECTAL SURGERY NOTE: LOCAL TITLE: COLON-RECTAL INPT PROGRESS NOTE STANDARD TITLE: COLON & RECTAL SURGERY NOTE DATE OF NOTE: JUL 05, 2024@11:48 ENTRY DATE: JUL 05, 2024@11:48:59 AUTHOR: BALAJADIA,BILLIE EXP COSIGNER: URGENCY: STATUS: COMPLETED INPATIENT PROGRESS NOTE Subjective: Did not work with WOCN yesterday because he can google everything but willing to work with them today. Did not get out of bed yesterday but was sitting in chair this morning. tolerating diet but decreased appetite, only minimal nausea but no emesis. Pain is controlled with STABLE ATTENDANT. Objective: A&O, NAD NLB on RA RRR [...] to arouse and RR<8). Call provider or POUNCER MACHINE. May repeat every 2-3 min up to [...] REFRIGERATED NARCOTIC INJ SEE IV ORDER IV POINTER MACHINE OPERATOR ACTIVE THIS ORDER IS FOR NURSING PYXIS ACCESS AND PHARMACY INFORMATION ONLY DOCUMENT STABLE ATTENDANT/DRIP ADMINISTRATION UNDER ORDER ON IV TAB 15) [...] PT/OT consult - Regular diet - Discontinue STABLE ATTENDANT, start PRN oxycodone and dilaudid Plan: - [...] 07/05/2024 12:01 Receipt Acknowledged By: 07/05/2024 15:12 /wyatt/ MARYBETH GRAVES MD STAFF SURGEON, COLON/RECTAL AYLA MAYEN [facility] Jul 05, 2024 07:00 AM NURSING NOTE: [...] Cardiac rhythm interpretation: SINUS SOCORRO W/BBB HR:54 IA Int:0.17 QRS Int:0.129 QT Int:0.485 QTc Int:0.429 Telemetry leads monitored this shift: II and V lead Alarm parameters verified this shift Continuous Oximetry Monitor: DAY Shift Continuous oximetry initiation date/time: Jun@17:20. Oximetry indication: Post Anesthesia Respiratory history: JUANJOSE Continuous oximetry reading: PROBE OFF.....NURSE MARTI KELLER Alarm parameters verified this shift. Accuracy of oxygen reading verified by waveform and/or review. /wyatt/ VERONICA MINA [facility] Cnc Programmer Signed: 07/05/2024 10:47 VERONICA MINA [facility] Jul 05, 2024 03:07 AM NURSING INPATIENT NOTE: LOCAL TITLE: [facility] NURSING PROGRESS NOTE STANDARD TITLE: NURSING INPATIENT NOTE DATE OF NOTE: JUL 05, 2024@03:07 ENTRY DATE: JUL 05, 2024@03:07:04 AUTHOR: ALIA PINTO EXP COSIGNER: URGENCY: STATUS: COMPLETED Nursing Shift Note Nursing care provided from [phone] Highlights from shift: in bed at start of shift. Pain well controlled by STABLE ATTENDANT pump- 10. VSS. Lung sounds clear.Bowel sounds active. 2 L NC administered while sleeping- O2 sats 96-98. JUAN drain to left lower abdominal quad 10 mL. Ileostomy emptied 100 mL, green/black thick output. Per WOC note- bag will be changed later this AM if Maynard allows. Silverlon dressing changed due to ileostomy ouput leaking onto it. Sutures intact and well-approximated. Voiding via urinal 600 mL, clear yellow. PRN zofran administered @ 0450 for nausea. Maynard reports PO zofran relieves nausea well.IV zosyn [...] tubing, urinary catheters, cell phone etc.) Comment: STABLE ATTENDANT pump SKIN ALTERATIONS: Wound Documentation from the [...] Skin Interventions performed this shift: Patient turned [id number] or as appropriate while in bed. /wyatt/ ALIA CHRISTIANSON, RN Signed: 07/05/2024 06:51 ALIA PINTO [facility] Jul 04, 2024 11:00 PM NURSING NOTE: LOCAL TITLE: TELEMETRY AND OXIMETRY CENTRALIZED NOTE STANDARD TITLE: NURSING NOTE DATE OF NOTE: JUL 04, 2024@23:00 ENTRY DATE: JUL 05, 2024@03:42:27 AUTHOR: DIANA LI EXP COSIGNER: URGENCY: STATUS: COMPLETED Telemetry (Cardiac) Monitor: Hand Cultivator Telemetry initiation date/time: Jun@17:20. 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 Oximetry indication: Post Anesthesia Respiratory history: JUANJOSE Continuous oximetry readin% Alarm parameters verified this shift. Accuracy of oxygen reading verified by waveform and/or review. /wyatt/ Diana Lifishing tool technician oil well. Tube Repairer. Signed: 07/05/2024 03:44 DIANA LI [facility] Jul 04, 2024 07:20 PM NURSING INPATIENT NOTE: LOCAL TITLE: [facility] [...] 4/10. Pt. said he feels like the STABLE ATTENDANT pump is helping. Bilateral piv's in hands. [...] REGISTERED NURSE Signed: 07/04/2024 19:35 YANDEL COREAS [facility] Jul 04, 2024 06:33 PM PRIMARY CARE NOTE: LOCAL TITLE: MEDICINE INPT CO-MANAGEMENT NOTE STANDARD TITLE: PRIMARY CARE NOTE DATE OF NOTE: JUL 04, 2024@18:33 ENTRY DATE: JUL 04, 2024@18:33:46 AUTHOR: LYNN CAMERON EXP COSIGNER: URGENCY: STATUS: COMPLETED Nursing Notes reviewed. SUBJECTIVE: Patient reports abdominal pain being reasonably well controlled on STABLE ATTENDANT. No nausea today, but reported episode last [...] euvolemic. BNP s mildly elevated. - Restarting CONCRETE BLOCK MASON empagliflozin today , with plan to restart furosemide and spironolactone in am if no nausea/ has decent PO intake - Monitoring fluid status closely # HTN - Restarted on CONCRETE BLOCK MASON HCTZ/lisinopril this am. # HLD - Cont. CONCRETE BLOCK [place]ON atorvastatin # Glucose intolerance . No hyperglycemia noted so far - Will monitor glucose level on daily BMP # JUANJOSE - Cont. supplemental nocturnal O2 @ 2 L/min NC Prophylaxis: DVT - start sq enoxaparin as soon as okayed by primary service /wyatt/ LYNN CAMERON MD STAFF PHYSICIAN Signed: 07/04/2024 18:46 LYNN CAMERON [facility] Jul 04, 2024 03:05 PM NURSING NOTE: [...] with 1st Degree AVB and BBB HR:50 IA Int:.28 QRS Int:.13 QT Int:.50 QTc Int:.45 Telemetry leads monitored this shift: II and V lead Alarm parameters verified this shift Continuous Oximetry Monitor: Evening Shift Continuous oximetry initiation date/time: Jun@17:20. Oximetry indication: Post Anesthesia Respiratory history: JUANJOSE Continuous oximetry readin-97 Alarm parameters verified this shift. Accuracy of oxygen reading verified by waveform and/or review. /wyatt/ RAMIRO RUSSELL telephonic nurse Signed: 07/04/2024 17:35 RAMIRO RUSSELL [facility] Jul 04, 2024 01:44 PM WOUND CARE CONSULT: LOCAL TITLE: [facility] NURSE CONSULT STANDARD TITLE: WOUND CARE CONSULT DATE OF NOTE: JUL 04, 2024@13:44 ENTRY DATE: JUL 04, 2024@13:44:23 AUTHOR: MARTI LAYTON EXP COSIGNER: URGENCY: STATUS: COMPLETED Solar Designer/Installer visited patient, introduced self and role. Maynard declined education and said come back tomorrow, and was focused on meal tray. Solar Designer/Installer explained that independent care of ostomy pouch to prevent leaking and maintain healthy skin will be important for his discharge plans to get back home. Patient states I don't like the word leaking! agrees to learn tomorrow, and mentions that it is difficult to see his pouch. Solar Designer/Installer encouraged standing in front of the bathroom mirror at education session, he agrees he can do that. Will re-visit in the AM and reattempt ostomy education for new diverting loop ileostomy. Nursing to continue education on pouch emptying. Offer vent as needed for gas, and change pouch as needed with jung stock materials. /wyatt/ EARLENE PATHAK, RN, CWOCN Certified Wound, Ostomy, Continence Nurse Signed: 07/04/2024 13:48 Receipt Acknowledged By: * AWAITING SIGNATURE * WENCESLAO POON * AWAITING SIGNATURE * AYLA MAYEN * AWAITING SIGNATURE * KATELYNN PERSON ANNA E [facility] Jul 04, 2024 10:48 AM PASTORAL CARE NOTE: LOCAL TITLE: HOME DEMONSTRATOR-VISITATION NOTE STANDARD TITLE: PASTORAL CARE NOTE DATE OF NOTE: JUL 04, 2024@10:48 ENTRY DATE: JUL 04, 2024@10:48:29 AUTHOR: LEILANI HOLLIDAY EXP COSIGNER: URGENCY: STATUS: COMPLETED HOME DEMONSTRATOR VISIT DECLINE NOTE SUBJECTIVE: Routine Agricultural Equipment Test Engineer Visit OBJECTIVE: Mobile Ui Designer met with Maynard at his bedside for a quick visit. ASSESSMENT/SPIRITUAL DISTRESS OR COPING: - Maynard stated that he did not want a visitor at this time. INTERVENTION: - Mobile Ui Designer complied with declining the visit. PLAN: - Update Maynard's Holiness Preference in [place] to [place]. - Agricultural Equipment Test Engineer will continue to assess patient for his spiritual and emotional wellness during his hospital tour. /es/ LEILANI HOLLIDAY MDIV, [facility] Staff Mobile Ui Designer Signed: 07/04/2024 10:49 LEILANI HOLLIDAY [facility] Jul 04, 2024 08:51 AM COLON & [...] to arouse and RR<8). Call provider or POUNCER MACHINE. May repeat every 2-3 min up to 3 total doses. Administer INTRAMUSCULARLY if no IV access. 7) NITROGLYCERIN TAB,SUBLINGUAL 0.4MG SL QDAY PRN for ACTIVE chest pain 8) ONDANSETRON TAB 4MG PO Q6H PRN FOR NAUSEA ACTIVE 9) STABLE ATTENDANT HYDROMORPHONE INJ,SOLN HYDROMORPHONE STABLE ATTENDANT 20 MG in ACTIVE 0.9% NACL 100 ML STD. Dose: Conc = 0.2mg/ml@0 Rate:0MG/HR,PCAdose:0.1MG,Loc kout:10Min, MaxPCAdoses:6 IV 10) PIPERACILLIN/TAZOBACTAM 3.375GM 50ML INJ in ACTIVE PIPERACIL/TAZOB 3.375GM PREMIX 50 ML INFUSE OVER 30 MINUTES For 4 days (07/03-07/07) IVPB Q6H 11) REFRIGERATED NARCOTIC INJ SEE IV ORDER IV POINTER MACHINE OPERATOR ACTIVE THIS ORDER IS FOR NURSING PYXIS ACCESS AND PHARMACY INFORMATION ONLY DOCUMENT STABLE ATTENDANT/DRIP ADMINISTRATION UNDER ORDER ON IV TAB 12) [...] Appreciate recommendations - Pain control: tylenol, robaxin, STABLE ATTENDANT pump - Advance to FLD today - Discontinue fluids - Remove tracey - Zosyn x4d post-op - Trend WBC - Ppx: DVT- lovenox - Dispo: cont inpt. pending stoma teaching, ROBF, diet advancement Patient was d/w CRS fellow who d/w staff. Ayla Mayen DO General Surgery PGY-2 /wyatt/ Ayla Mayen DO RESIDENT, GEN SURG Signed: 07/04/2024 09:10 Receipt Acknowledged By: 07/06/2024 14:14 /wyatt/ WENCESLAO POON MD STAFF SURGEON, COLON/RECTAL AYAL MAYEN [facility] Jul 04, 2024 07:15 AM NURSING NOTE: [...] CHF Cardiac rhythm interpretation: Sinus Rhythm HR:67 IA Int:.32 QRS Int:.11 QT Int:.45 QTc Int:.47 Telemetry leads monitored this shift: II and V lead Alarm parameters verified this shift Continuous Oximetry Monitor: Day Shift Continuous oximetry initiation date/time: Jun@17:20. Oximetry indication: Post Anesthesia Respiratory history: JUANJOSE Continuous oximetry readin-97 Alarm parameters verified this shift. Accuracy of oxygen reading verified by waveform and/or review. /es/ RAMIRO RUSSELL [employer] Signed: 07/04/2024 11:11 RAMIRO RUSSELL [facility] Jul 04, 2024 01:15 AM NURSING INPATIENT NOTE: LOCAL TITLE: [facility] NURSING PROGRESS NOTE STANDARD TITLE: NURSING INPATIENT NOTE DATE OF NOTE: JUL 04, 2024@01:15 ENTRY DATE: JUL 04, 2024@01:15:43 AUTHOR: ALIA PINTO EXP COSIGNER: URGENCY: STATUS: COMPLETED Nursing Shift Note Nursing care provided from [phone] Highlights from shift: in bed at start of shift. reports pain 5/10 in abdominal region. given scheduled metho. Maynard dangled at side of bed. No reports of dizziness. VSS. A&O x 4. Maynard able to make needs known, call light in place. Lung sounds clear. Bowel sounds active. Ostomy on RLQ- brown/liquid output.JUAN drain left abdominal. 100mL red, bloody drainage. Mepilex to abdominal incision. scant drainage noted. tracey catheter in place. 250 mL red urine, w/ abnormal smell. STABLE ATTENDANT pump delivering hydromorphone in place. 2nd nurse fire department marine engineer present. See ICCA for detailed assessment, Education [...] CDI. 06/23/2024 Skin Integrity - Wound -LLQ: JAUN drain; stay fix dressing is CDI, tubing securment device applied. Incision and Flaps: Incision 1: Location: abdominal incision- silverlon drsg in place, small amount of drainage apparent. left abdominal JUAN site. SPECIAL PROCEDURES NURSE. Wound drainage none. Skin Interventions performed this shift: Patient turned [id number] or as appropriate while in bed. /wyatt/ ALIA CHRISTIANSON, RN Signed: 07/04/2024 06:41 ALIA PINTO [facility] Jul 03, 2024 08:24 PM SURGERY ATTENDING [...] well. No nausea or vomiting. MD JAMILAH Aolnso /wyatt/ MERY NGUYEN MD SOD Signed: 07/03/2024 20:28 MERY NGUYEN [facility] Jul 03, 2024 07:26 PM TREATMENT PLAN [...] and hearing aids if indicated., Place fall technician telecommunication systems the Kardex. Measurable Outcomes: Patient will verablize [...] shared with patient/family and verbalized with understanding. /wyatt/ OSORIO BASSETT RN REGISTERED NURSE Signed: 07/03/2024 19:28 07/10/2024 ADDENDUM STATUS: COMPLETED Objectives met per vet's preferences /wyatt/ Naima Tirado RN registered nurse Signed: 07/10/2024 09:44 ROGALSKY,OSORIO DAILEY [facility] Jul 03, 2024 07:17 PM NURSING ADMISSION EVALUATION NOTE: LOCAL TITLE: [facility] ACUTE INPATIENT NSG ADMISSION SCREEN STANDARD TITLE: NURSING ADMISSION EVALUATION NOTE DATE OF NOTE: JUL 03, 2024@19:17 ENTRY DATE: JUL 03, 2024@19:17:53 AUTHOR: OSORIO BASSETT COSIGNER: URGENCY: STATUS: COMPLETED === ALLERGY/ADVERSE DRUG REACTION (ADR) REVIEW (MRT5) === FACILITY ALLERGY/ADR -------- No Remote Allergy/ADR Data available for this patient [facility] TERAZOSIN Allergy/Adverse Drug Reaction Review to be conducted by: Other: Allergy review by: pharm == MEDICATION REVIEW (MRR1) == Did patient bring medication(s) from home? No Medication Review to be conducted by pharm == GENERAL INFORMATION == Admission information given by: Patient Is there a legal guardian/conservator? No Preferred language for discussing healthcare: Vincentian Preferred mode of communication: Verbal Items at [...] desire to leave. = SUICIDE SCREEN = Hart Suicide Severity Rating Scale (C-SSRS) 1. Over [...] Directive: No = SPIRITUALITY = Are there yarsanism practices or spiritual concerns you want the signing teacher, your provider, and other health care team [...] REGISTERED NURSE Signed: 07/03/2024 19:25 OSORIO BASSETT [facility] Jul 03, 2024 06:25 PM INTERNAL MEDICINE CONSULT: LOCAL TITLE: MEDICINE CO-MANAGEMENT CONSULT STANDARD TITLE: INTERNAL MEDICINE CONSULT DATE OF NOTE: JUL 03, 2024@18:25 ENTRY DATE: JUL 03, 2024@18:26:02 AUTHOR: LYNN CAMERON EXP COSIGNER: URGENCY: STATUS: COMPLETED PRIMARY SERVICE: CRS [...] . No additional CRC surveillance recommended by assessment consultant. 9. Decreased vitamin D - 02.24.2017 [...] - By 02.13.[address] 03.14.2020 OSH(ED [place], [place]): Pt. Declined Admission. 03.14.2020 CT with Mild Sigmoid diverticulitis. 04.23.2020 ED(OSH): Declined admission. 17. 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 18. Ex-tobacco user 19. Impaired Fasting Glucose ([facility] [id number]) - 02.26.2014 A1c 5.8%. 20. Adrenal mass [...] recommended. 24. Hiatal hernia 25. Shoulder Pain ([facility] [id number]) 26. [facility]igger finger [facility]. [facility] Primary: Dr. Cathi Simeon, [facility] and [facility], [place] [address]. ALLERGIES: TERAZOSIN (Mar 13, 2015) MEDICATIONS: Active [...] BLOOD PRESSURE SOCIAL HISTORY: Lives alone in [place], [place]. Habits: Tobacco- quit 10 yrs ago, [...] - Cont. telemetry # HFpEF - Holding CONCRETE BLOCK [place]ON empagliflozin, furosemide and spironolactone for now - Monitoring fluid status closely # HTN - Will use prn hydralazine 20 mg q6mg prn for SBP >180 ( SHOULD AVOID B-BLOCKERS or CCB) # HLD - Cont. CONCRETE BLOCK [place]ON atorvastatin # Glucose intolerance - Will monitor for hyperglycemia and start correctional scale Aspart if noted # JUANJOSE - Will use supplemental nocturnal O2 @ 2 L/min NC Prophylaxis: DVT - per primary service /es/ LYNN CAMERON MD STAFF PHYSICIAN Signed: 07/04/2024 18:33 LYNN CAMERON [facility] Jul 03, 2024 05:41 PM NURSING POST [...] intact. Two abd lap sites closed per harvey SPECIAL PROCEDURES NURSE. Falls Risk: History of falls: No (0) Multiple diagnoses: Yes (15) Ambulatory status: Uses crutch, cane, walker, push wheelchair or assistive device. (15) Receiving IV therapy or has saline lock in place: Yes (20) Gait: Weak (10) Mental status: Alert and oriented to own ability. (0) Total Score: 60 Patient with positive screen for [place] Risk. Patient at high risk for injury from falls due to the following risk factors: Any surgery on this admission Individual interventions implemented this shift: *Interventions from previous 48 hours* No data available for: Falls Interventions [place] risk Precaution: Patient has a high risk [...] Skin Interventions performed this shift: Patient turned [id number] or as appropriate while in bed. Patient's [...] Ileostomy beginning to put out brown liquid. /wyatt/ OSORIO BASSETT RN REGISTERED NURSE Signed: 07/03/2024 17:49 OSORIO BASSETT [facility] Jul 03, 2024 05:25 PM NURSING NOTE: [...] CHF Cardiac rhythm interpretation: Sinus Bradycardia HR:51 IA Int:.20 QRS Int:.14 QT Int:.51 QTc Int:.47 Telemetry leads monitored this shift: II and V lead Alarm parameters verified this shift Continuous Oximetry Monitor: Evening Shift Continuous oximetry initiation date/time: Jun@17:20. Oximetry indication: Post Anesthesia Respiratory history: JUANJOSE Continuous oximetry readin-98 Alarm parameters verified this shift. Accuracy of oxygen reading verified by waveform and/or review. /wyatt/ RAMIRO RUSSELL [employer] Signed: 07/03/2024 17:59 RAMIRO RUSSELL [facility] Jul 03, 2024 01:40 PM ANESTHESIOLOGY OPERATIVE NOTE: LOCAL TITLE: ARK ANESTHESIA RECORD STANDARD TITLE: ANESTHESIOLOGY OPERATIVE NOTE DATE OF NOTE: JUL 03, 2024@13:40 ENTRY DATE: JUL 04, 2024@08:20:33 AUTHOR: BRIDGER WYMAN EXP COSIGNER: URGENCY: STATUS: COMPLETED See [facility] for Full Anesthesia Record /wyatt/ BRIDGER WYMAN REGISTERED NURSE Signed: 07/04/2024 08:20 BRIDGER WYMAN [facility] Jul 03, 2024 01:40 PM ANESTHESIOLOGY OPERATIVE NOTE: LOCAL TITLE: ARK ANESTHESIA RECORD STANDARD TITLE: ANESTHESIOLOGY OPERATIVE NOTE DATE OF NOTE: JUL 03, 2024@13:40 ENTRY DATE: JUL 03, 2024@14:50:24 AUTHOR: JESSICA ALVARADO EXP COSIGNER: URGENCY: STATUS: COMPLETED See [facility] for Full Anesthesia Record /wyatt/ Jessica Alvarado MD Physician, Anesthesiology Signed: 07/04/2024 08:28 JESSICA ALVARADO [facility] Jul 03, 2024 01:38 PM NURSING OPERATIVE NOTE: LOCAL TITLE: INTRAOPERATIVE NURSING NOTE STANDARD TITLE: NURSING OPERATIVE NOTE DATE OF NOTE: JUL 03, 2024@13:38 ENTRY DATE: JUL 03, 2024@13:38:04 AUTHOR: NIMO KILGORE EXP COSIGNER: URGENCY: STATUS: COMPLETED Intraoperative Nursing Note Part (D) Postoperative Assessment: Post-Op Skin Assessment Inspected patients skin post procedure Yes: No new abnormalities observed [facility] Perioperative plan of care was implemented with intraoperative goals and objectives met: Yes A debriefing procedure was performed by Drs. Suarez & Brandee Verifying the following: Procedure, Wound Classification, Specimens, EBL, Cultures A local anesthetic was used intraoperatively: No, block per anesthesia /wyatt/ Nimo Kilgore RN Staff Nurse, OR Signed: 07/03/2024 13:40 NIMO KILGORE [facility] Jul 03, 2024 01:29 PM SURGERY NOTE: [...] Colorectal Fellow Signed: 07/03/2024 13:48 CHAPITO HENAO [facility] Jul 03, 2024 01:27 PM NURSING TRANSFER SUMMARIZATION NOTE: LOCAL TITLE: [facility] PACU TRANSFER NOTE STANDARD TITLE: NURSING TRANSFER SUMMARIZATION NOTE DATE OF NOTE: JUL 03, 2024@13:27 ENTRY DATE: JUL 03, 2024@13:27:13 AUTHOR: NAI HURD COSIGNER: URGENCY: STATUS: COMPLETED [facility] PACU TRANSFER NOTE Has ADDENDA PACU Transfer [...] Dressings: Midline silverlon C/D/I, 2 lap sites SPECIAL PROCEDURES NURSE glued and approximated. JUAN site SPECIAL PROCEDURES NURSE, drain sutured in. Drains: JUAN w/ 120ml serosang drainage, site intact, sutures. Transfer to: [facility] Condition: Stable /jerome HURD RN STAFF NURSE [...] 07/03/2024 ADDENDUM STATUS: COMPLETED Pt slept from 0542-1958 consistently; pain and BP did creep up to 6/10 and 210/82-->additional 5mg hydralazine given at 1645, 0.3mg hydromorphone at 1645, 5mg oxycodone + 500mg methocarbamol at 1655. BP at 1700: 162/72. /jerome HURD SKIVER HAND NURSE Signed: 07/03/2024 17:02 NAI HURD [facility] Jul 03, 2024 11:25 AM NURSING OPERATIVE [...] No Patient accompanied today: No: arriving later: Esmer, Significant Other [phone] Part (C) Intraoperative Assessment: Intraoperative positioning Type [...] of those who positioned the patient: See [facility] A fire risk assessment was performed utilizing the Association of perioperative Registered Nurses (AORN) Fire Risk Assessment Tool. [facility] Operating Room Perioperative Plan of Care for [...] laser. Solutions allowed to dry completely per collar starcher guidelines and fumes to dissipate prior to [...] Flammable agents allowed to dry completely per collar starcher guidelines and fumes to dissipate prior to use of ESU. Active electrode kept clean and used per collar starcher's recommendations. A fiber optic light was used [...] Model #: Storz Cystoscope Scope Serial #: [id number] An indwelling urinary catheter was placed intraoperatively: Yes: a 16 Luxembourger/10cc indwelling urinary catheter to drainage was inserted by Dr Suarez /wyatt/ Nimo Kilgore, stave machine tender Nurse, OR Signed: 07/03/2024 11:45 NIMO KILGORE [facility] Jul 03, 2024 09:57 AM SURGERY NOTE: [...] The case was started by inserting a 22-Luxembourger rigid cystoscope sheath and 30- degree angle [...] MD RESIDENT Signed: 07/03/2024 10:10 CHRISTINE FRIAS [facility] Jul 03, 2024 08:33 AM SURGERY NURSING OPERATIVE NOTE: LOCAL TITLE: NURSE INTRAOPERATIVE REPORT STANDARD TITLE: SURGERY NURSING OPERATIVE NOTE DATE OF NOTE: JUL 03, 2024@08:33 ENTRY DATE: JUL 03, 2024@13:32:36 AUTHOR: NIMO KILGORE EXP COSIGNER: URGENCY: STATUS: COMPLETED SUBJECT: Case #: [id number] NURSE INTRAOPERATIVE REPORT Has ADDENDA Operating Room: OR5 Surgical Priority: ELECTIVE Patient in Hold: NOT ENTERED Patient in OR: JUL 03, 2024 08:33 Operation Begin: JUL 03, 2024 09:18 Operation End: JUL 03, 2024 09:32 Patient Out OR: JUL 03, 2024 13:32 Major Operations Performed: Primary: Cystoscopy, Bilateral Ureteral Stent Placement Robotic Assistance (Y/N): NO Wound Classification: CLEAN/CONTAMINATED Operation Disposition: JUNG Discharged Via: STRETCHER Primary Surgeon: CHARITO SUAREZ Director Of Veterans Affairs: CHRISTINE FRIAS Attending Surgeon: CHARITO SUAREZ Second Assist: N/A OR Support Personnel: Scrubbed Fani Anna () NIMO KILGORE () KENJI FOWLER () Preop Mood: ANXIOUS Preop Consc: ALERT-ORIENTED Preop Skin Integ: INTACT Preop Patrick: N/A --- Time Out Checklist --- Confirm [...] Surgery Position(s): Lithotomy Placed: N/A Electrocautery Unit: [id number] ESU Coagulation Range: N/A ESU Cutting Range: [...] Nursing Care Comments: See CPRS nursing note /wyatt/ Nimo Regenold, stave machine tender Nurse, OR Signed: 07/03/2024 13:43 07/30/2024 ADDENDUM STATUS: COMPLETED The Principal City Planning Engineer field was changed from <NOT ENTERED> to GALINA TEMPLETON/ Drew LOVE CERTIFIED REGISTERED NURSE OR DIRECTOR Signed: 07/30/2024 13:03 NIMO KILGORE [facility] Jul 03, 2024 08:33 AM SURGERY NURSING OPERATIVE NOTE: LOCAL TITLE: NURSE INTRAOPERATIVE REPORT STANDARD TITLE: SURGERY NURSING OPERATIVE NOTE DATE OF NOTE: JUL 03, 2024@08:33 ENTRY DATE: JUL 03, 2024@13:32:35 AUTHOR: NIMO KILGORE EXP COSIGNER: URGENCY: STATUS: COMPLETED SUBJECT: Case #: [id number] NURSE INTRAOPERATIVE REPORT Has ADDENDA Operating Room: OR5 Surgical Priority: ELECTIVE Patient [...] Classification: DIRTY/INFECTED Operation Disposition: JUNG Discharged Via: YARI Primary Surgeon: WENCESLAO POON Director Of Veterans Affairs: CHAPITO HENAO Attending Surgeon: WENCESLAO POON Second Assist: LEI LAW Other Scrubbed Assistants: RENEE RICHARDSON MOLLY OR Support Personnel: Scrubbed Circulating Fani SOLANO () NIMO KILGORE () KENJI FOWLER () Ronnie SPEARS () MERY SANDOVAL () DAVID NUR () Preop Mood: ANXIOUS Preop Consc: INTUBATED Preop Skin Integ: INTACT Preop Patrick: N/A --- Time Out Checklist --- Confirm [...] Surgery Position(s): Lithotomy Placed: N/A Electrocautery Unit: [id number] ESU Coagulation Range: 0-30 ESU Cutting Range: [...] prior to wound closure by surgeons per [place] policy Intra-Operative X-Ray: NO Intra-Operative X-Ray Comment: not indicated per [place] policy Counter: NIMO KILGORE Counts Verified By: [...] Nursing Care Comments: See CPRS nursing note /wyatt/ Nimo Kilgore stave machine tender Nurse, OR Signed: 07/03/2024 13:43 07/24/2024 ADDENDUM STATUS: COMPLETED The Principal City Planning Engineer field was changed from <NOT ENTERED> to GALINA TEMPLETON/ Drew LOVE CERTIFIED REGISTERED NURSE OR DIRECTOR Signed: 07/24/2024 13:02 NIMO KILGORE [facility] Jul 03, 2024 08:33 AM OPERATIVE REPORT: LOCAL TITLE: OPERATION REPORT STANDARD TITLE: OPERATIVE REPORT DATE OF NOTE: JUL 03, 2024@08:33 ENTRY DATE: JUL 03, 2024@14:11:04 SURGEON: CHRISTINE FRIAS ATTENDING: HOWIE GRIDER URGENCY: STATUS: COMPLETED SUBJECT: Case #: [id number] PREOPERATIVE DIAGNOSIS: Diverticulitis. POSTOPERATIVE DIAGNOSIS: Same. PROCEDURES [...] The case was started by inserting a 22-Luxembourger rigid cystoscope sheath and 30-degree angle lens. [...] there is any concern about the ureters. /wyatt/ CHRISTINE FRIAS MD RESIDENT Signed: 07/03/2024 14:20 /es/ HOWIE GRIDER MD STAFF SURGEON Cosigned: 07/05/2024 08:09 CHRISTINE FRIAS [facility] Jul 03, 2024 08:33 AM OPERATIVE REPORT: LOCAL TITLE: OPERATION REPORT STANDARD TITLE: OPERATIVE REPORT DATE OF NOTE: JUL 03, 2024@08:33 ENTRY DATE: JUL 03, 2024@13:32:35 SURGEON: CHAPITO HENAO ATTENDING: WENCESLAO POON URGENCY: STATUS: COMPLETED SUBJECT: Case #: [id number] Attending: Yovanny Poon MD Fellow: Chapito Henao [...] and taken to PACU in stable condition. /wyatt/ WENCESLAO POON MD STAFF SURGEON, COLON/RECTAL Signed: 07/06/2024 14:13 for CHAPITO Henao MD. Colorectal Fellow /jerome POON MD STAFF SURGEON, COLON/RECTAL Cosigned: 07/06/2024 14:13 WENCESLAO POON [facility] Jul 03, 2024 08:27 AM SURGERY NURSING NOTE: LOCAL TITLE: SURGERY CENTER NURSING NOTE STANDARD TITLE: SURGERY NURSING NOTE DATE OF NOTE: JUL 03, 2024@08:27 ENTRY DATE: JUL 03, 2024@07:23:20 AUTHOR: LIA RUSH EXP COSIGNER: URGENCY: STATUS: COMPLETED [facility] Nursing [...] with urology Responsible person with patient today: JHON Lyman, NA: Patient being admitted: Allergies: TERAZOSIN (Mar [...] SKIN PROBLEMS Other: Location(s): bruising bilateral arms, jaun drain in place left lower quardant PRE-EXISTING [...] Screen (within 3 days) Surgery specific assessment: /wyatt/ SAMMY WOLFF, RN REGISTERED NURSE Signed: 07/03/2024 08:27 LIA RUSH [facility] Jul 03, 2024 08:15 AM SURGERY H & P NOTE: LOCAL TITLE: H&P SURGICAL UPDATE STANDARD TITLE: SURGERY H & P NOTE DATE OF NOTE: JUL 03, 2024@08:15 ENTRY DATE: JUL 03, 2024@08:15:39 AUTHOR: WENCESLAO POON EXP COSIGNER: URGENCY: STATUS: COMPLETED The patient was assessed prior to anesthesia induction on the day of surgery and no change in patient condition was noted. /jerome POON MD STAFF SURGEON, COLON/RECTAL Signed: 07/03/2024 08:15 WENCESLAO POON [facility] Jul 03, 2024 08:14 AM SURGERY ATTENDING [...] SURGEON, COLON/RECTAL Signed: 07/03/2024 08:14 WENCESLAO POON [facility] Jul 03, 2024 07:45 AM ANESTHESIOLOGY NOTE: [...] . No additional CRC surveillance recommended by assessment consultant. 9. Decreased vitamin D - 02.24.2017 [...] - By 02.13.[address] 03.14.2020 OSH(ED [place], [place]): Pt. Declined Admission. 03.14.2020 CT with Mild Sigmoid diverticulitis. 04.23.2020 ED([facility]): Declined admission. 17. 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 18. Ex-tobacco user 19. Impaired Fasting Glucose (SCT [id number]) - 02.26.2014 A1c 5.8%. 20. Adrenal mass [...] recommended. 24. Hiatal hernia 25. Shoulder Pain ([facility] [id number]) 26. Trigger finger 27. [facility] Primary: Dr. Cathi Simeon, [place] [address]. SURGICAL HISTORY (WITH ANESTHESIA DETAILS AVAILABLE): JUL [...] SYSTEMS: METS: 4 to 6 Cardiac: CAD GA Chest Pain Respiratory: COPD JUANJOSE Neurologic: Small [...] Alert, Awake, Pleasant LABS SODIUM 135 L (06/24/24) POTASSIUM 3.6 (06/24/24) CHLORIDE 103 (06/24/24) CO2 [...] NOTE Standard Title: INTERVENTIONAL CARDIOLOGY PROCEDURE NOTE [place] Cardiovascular Assessment, Reporting, and Tracking (CART) system CARDIOVASCULAR DIAGNOSTIC AND THERAPEUTIC PROCEDURE REPORT Patient: FLACA WEAVER SSN: [id number] : 1950 AGE: 65 Procedure Date: 03/23/2016 [...] fr Aorta: 131/74, mean 99 CORONARY ANGIOGRAPHY [place] Vessels Summary: 1 vessel CAD Dominance: Right [...] RCA 70 Distal RCA 50 Fills by [id number] and bridging collaterals Right PDA fills by [id number] and bridging collaterals Right PAV Segment Luminal irregularities Right PL Segment 1 Fills by [id number] and bridging collaterals * Highest % Stenosis [...] The images were reviewed by the referring corporate banking officer, Dr. Burdick, and the findings explained to the patient in detail. We have discussed medical management and an attempt at PCI with the patient and have all (the patient, Dr. Burdick and I) together decided to proceed with a PCI attempt. Signed by: /wyatt/ JOSH COSME MD STAFF TRAIN OPERATIONS MANAGER 03/23/2016 15:25 Digital Pager: [phone] CT Angiogram No data available Pacemaker Note [...] the plan were discussed with the patient/responsible motor vehicle representative. The patient/motor vehicle representative has been encouraged to ask questions and any concerns have been addressed. The patient/motor vehicle representative endorses understanding of the information disclosed. The patient/motor vehicle representative voluntarily elects to move forward with the anesthetic plan. Phase I PACU Full Code, 2nd IV No data available for: LIFE-SUSTAINING TREATMENT Life Sustaining Treatment Orders /wyatt/ Jessica Alvarado MD Physician, Anesthesiology Signed: 07/03/2024 07:48 JESSICA ALVARADO [facility] Jul 03, 2024 07:37 AM SURGERY H [...] no change in patient condition was noted. /wyatt/ LEI LAW General Surgery Resident Signed: 07/03/2024 07:43 LEI LAW [facility] Jul 03, 2024 07:34 AM SURGERY ATTENDING [...] assessment and planned procedure or treatment plan. /wyatt/ HOWIE GRIDER MD STAFF SURGEON Signed: 07/03/2024 07:35 HOWIE GRIDER [facility] Jul 03, 2024 06:54 AM CONSENT: LOCAL [...] full consent document can be accessed through [employer]. 3. Patient name: FLACA WEAVER 4. The [...] supervising treatment/procedure (if not listed above): Shilpi Santosh MD DO RESIDENT URGENT CARE 13. Witness Name(s): 14. Comments: SCANNED DOCUMENT SIGNATURE NOT REQUIRED Electronically Filed: 07/03/2024 by: CHANEL LOOMIS [facility]
[2024-08-01 07:49] LABS: Slide Review Reflex No
--- OUTSIDE RECORDS SUMMARY | 2024-08-01 07:49 | XMS_ITS | Encounter Summary ---
Author Name [facility] [facility] [place] Address [address] [place] [address] Care Team Providers Care Lever Tender Name Role Phone JATINDER CABRERA Primary [...] PART A Sep 29, 2016 PART A [id number] [phone] JUDY WEAVER PATIENT Selected Encounter This section includes the information on record at [place] for the Encounter. Date/Time Encounter Type Encounter Description Reason Pro vider Source Jul 16, 2024 07:39 AM Inpatient Visit TELEPHONE TRIAGE IHE Encounter Template Text not [...] Range Comment Jul 21, 2024 10:38 AM [facility] BASIC METABOLIC PANEL+MG Specimen Type: PLASMA No comment entered. Ordering Provider: SARAI GOLDEN Report Released Date/Time: Jul 20, 2024 06:50 PM Reporting Lab: [facility] [address] Performing Lab: [facility] [address] CREATININE 0.8 mg/dL 0.7-1.2 UREA NITROGEN 31 mg/dL H 8-26 GLUCOSE 120 mg/dL H 70-100 SODIUM 125 mmol/L L 136-145 POTASSIUM 4.4 mmol/L 3.5-5.1 CHLORIDE 100 mmol/L 98-107 CO2 17 mmol/L L 22-29 CALCIUM 9.6 mg/dL 8.4-10.2 MAGNESIUM 1.9 mg/dL 1.6-2.6 ANION GAP 8 mmol/L 5-15 .CREAT EGFR(CKD-EPI) >90 >60 Jul 21, 2024 10:38 AM [facility] CBC Specimen Type: BLOOD No comment entered. Ordering Provider: SARAI GOLDEN Report Released Date/Time: Jul 20, 2024 06:50 PM Reporting Lab: [facility] [address] Performing Lab: [facility] [address] WBC 16.0 H 4.0-11.0 RBC 5.16 4.60-6.20 HGB 15.8 g/dL 13.5-17.9 HCT 45.5 41.0-54.0 MCV 88.2 fL 80.0-100.0 MCH 30.6 pg 27.0-33.0 MCHC 34.7 g/dL 32.0-37.5 PLT 428 H 150-400 MPV 10.8 fL 9.1-13.0 RDW 13.6 11.5-14.5 Jul 20, 2024 01:00 PM [facility] SODIUM,URINE RANDOM Specimen Type: URINE No comment entered. Ordering Provider: SARAI GOLDEN Report Released Date/Time: Jul 20, 2024 08:22 AM Reporting Lab: [facility] [address] Performing Lab: [facility] [address] SODIUM,URINE RANDOM <20 mmol/L Jul 20, 2024 01:00 PM [facility] OSMOLALITY,URINE Specimen Type: URINE No comment entered. Ordering Provider: SARAI GOLDEN Report Released Date/Time: Jul 20, 2024 08:22 AM Reporting Lab: [facility] [address] Performing Lab: [facility] [address] OSMOLALITY,URIN E 648 mosm/kg 500-800 Jul 20, 2024 06:45 AM [facility] BASIC METABOLIC PANEL+MG Specimen Type: PLASMA No comment entered. Ordering Provider: SARAI GOLDEN Report Released Date/Time: Jul 19, 2024 06:13 PM Reporting Lab: [facility] [address] Performing Lab: [facility] [address] CREATININE 0.8 mg/dL 0.7-1.2 UREA NITROGEN 36 mg/dL H 8-26 GLUCOSE 111 mg/dL H 70-100 SODIUM 121 mmol/L L 136-145 POTASSIUM 4.1 mmol/L 3.5-5.1 CHLORIDE 99 mmol/L 98-107 CO2 14 mmol/L L 22-29 CALCIUM 9.5 mg/dL 8.4-10.2 MAGNESIUM 1.8 mg/dL 1.6-2.6 ANION GAP 8 mmol/L 5-15 .CREAT EGFR(CKD-EPI) >90 >60 Jul 20, 2024 06:43 AM [facility] CBC & DIFF Specimen Type: BLOOD Comment: Automated Differential Performed Ordering Provider: SARAI GOLDEN Report Released Date/Time: Jul 19, 2024 06:13 PM Reporting Lab: [facility] [address] Performing Lab: [facility] [address] WBC 16.6 H 4.0-11.0 RBC 4.96 4.60-6.20 [...] H 0.0-0.1 Jul 20, 2024 05:30 AM [facility] OSMOLALITY,SERUM Specimen Type: SERUM No comment entered. Ordering Provider: SARAI GOLDEN Report Released Date/Time: Jul 20, 2024 09:47 AM Reporting Lab: [facility] [address] Performing Lab: [facility] [address] OSMOLALITY,SERU M 266 mosm/kg L 276-305 Jul 19, 2024 08:57 AM [facility] BASIC METABOLIC PANEL+MG Specimen Type: PLASMA No comment entered. Ordering Provider: SARAI GOLDEN Report Released Date/Time: Jul 18, 2024 10:24 PM Reporting Lab: [facility] [address] Performing Lab: [facility] [address] CREATININE 1.0 mg/dL 0.7-1.2 UREA NITROGEN 40 mg/dL H 8-26 GLUCOSE 104 mg/dL H 70-100 SODIUM 129 mmol/L L 136-145 POTASSIUM 3.3 mmol/L L 3.5-5.1 CHLORIDE 104 mmol/L 98-107 CO2 16 mmol/L L 22-29 CALCIUM 8.0 mg/dL L 8.4-10.2 MAGNESIUM 1.7 mg/dL 1.6-2.6 ANION GAP 9 mmol/L 5-15 .CREAT EGFR(CKD-EPI) 80 >60 Jul 19, 2024 08:57 AM [facility] CBC Specimen Type: BLOOD No comment entered. Ordering Provider: SARAI GOLDEN Report Released Date/Time: Jul 18, 2024 10:24 PM Reporting Lab: [facility] [address] Performing Lab: [facility] [address] WBC 17.3 H 4.0-11.0 RBC 4.83 4.60-6.20 HGB 14.8 g/dL 13.5-17.9 HCT 42.6 41.0-54.0 MCV 88.2 fL 80.0-100.0 MCH 30.6 pg 27.0-33.0 MCHC 34.7 g/dL 32.0-37.5 PLT 456 H 150-400 MPV 10.8 fL 9.1-13.0 RDW 13.7 11.5-14.5 Jul 17, 2024 06:55 PM [facility] PHOSPHORUS Specimen Type: PLASMA No comment entered. Ordering Provider: SARAI GOLDEN Report Released Date/Time: Jul 17, 2024 01:54 PM Reporting Lab: [facility] [address] Performing Lab: [facility] [address] PHOSPHORUS 2.9 mg/dL 2.3-4.3 Jul 17, 2024 06:55 PM [facility] BASIC METABOLIC PANEL+MG Specimen Type: PLASMA No comment entered. Ordering Provider: SARAI GOLDEN Report Released Date/Time: Jul 17, 2024 01:54 PM Reporting Lab: [facility] [address] Performing Lab: [facility] [address] CREATININE 1.2 mg/dL 0.7-1.2 UREA NITROGEN 62 mg/dL H 8-26 GLUCOSE 116 mg/dL H 70-100 SODIUM 128 mmol/L L 136-145 POTASSIUM 3.8 mmol/L 3.5-5.1 CHLORIDE 100 mmol/L 98-107 CO2 16 mmol/L L 22-29 CALCIUM 9.3 mg/dL 8.4-10.2 MAGNESIUM 2.1 mg/dL 1.6-2.6 ANION GAP 12 mmol/L 5-15 .CREAT EGFR(CKD-EPI) 64 >60 Jul 17, 2024 07:00 AM [facility] CBC & DIFF Specimen Type: BLOOD Comment: Manual Differential Performed Ordering Provider: SARAI GOLDEN Report Released Date/Time: Jul 16, 2024 04:52 PM Reporting Lab: [facility] [address] Performing Lab: [facility] [address] WBC 18.9 H 4.0-11.0 RBC 5.55 4.60-6.20 [...] MORPHOLOGY PRESENT Jul 17, 2024 07:00 AM [facility] ALBUMIN Specimen Type: PLASMA No comment entered. Ordering Provider: SARAI GOLDEN Report Released Date/Time: Jul 16, 2024 12:12 PM Reporting Lab: [facility] [address] Performing Lab: [facility] [address] ALBUMIN 4.3 g/dL 3.5-5.0 Jul 17, 2024 07:00 AM [facility] COMPREHENSIVE METABOLIC PANEL+MG Specimen Type: PLASMA No comment entered. Ordering Provider: SARAI GOLDEN Report Released Date/Time: Jul 16, 2024 04:52 PM Reporting Lab: [facility] [address] Performing Lab: [facility] [address] CREATININE 1.3 mg/dL H 0.7-1.2 UREA NITROGEN [...] L >60 Jul 16, 2024 07:10 PM [facility] LACTIC ACID Specimen Type: PLASMA No comment entered. Ordering Provider: SARAI GOLDEN Report Released Date/Time: Jul 16, 2024 12:12 PM Reporting Lab: [facility] [address] Performing Lab: [facility] [address] LACTIC ACID 0.9 mmol/L 0.5-2.2 Jul 16, 2024 02:14 PM [facility] MRSA SURVL NARES DNA Specimen Type: NARES No comment entered. Ordering Provider: SARAI GOLDEN Report Released Date/Time: Jul 16, 2024 12:12 PM Reporting Lab: [facility] [address] Performing Lab: [facility] [address] MRSA SURVL NARES DNA NEGATIVE Negative Jul 16, 2024 02:10 PM [facility] LACTIC ACID Specimen Type: PLASMA No comment entered. Ordering Provider: SARAI GOLDEN Report Released Date/Time: Jul 16, 2024 12:12 PM Reporting Lab: [facility] [address] Performing Lab: [facility] [address] LACTIC ACID 0.9 mmol/L 0.5-2.2 Jul 16, 2024 02:08 PM [facility] COMPREHENSIVE METABOLIC PANEL+MG Specimen Type: PLASMA No comment entered. Ordering Provider: SARAI GOLDEN Report Released Date/Time: Jul 16, 2024 12:12 PM Reporting Lab: [facility] [address] Performing Lab: [facility] [address] CREATININE 2.0 mg/dL H 0.7-1.2 UREA NITROGEN [...] L >60 Jul 16, 2024 02:08 PM [facility] CBC & DIFF Specimen Type: BLOOD Comment: Manual Differential Performed Ordering Provider: SARAI GOLDEN Report Released Date/Time: Jul 16, 2024 12:12 PM Reporting Lab: [facility] [address] Performing Lab: [facility] [address] WBC 19.7 H 4.0-11.0 RBC 5.39 4.60-6.20 [...] MORPHOLOGY PRESENT Jul 10, 2024 07:16 AM [facility] PHOSPHORUS Specimen Type: PLASMA No comment entered. Ordering Provider: JUANCARLOS ECHOLS Report Released Date/Time: Jul 09, 2024 12:23 PM Reporting Lab: [facility] [address] Performing Lab: [facility] [address] PHOSPHORUS 3.0 mg/dL 2.3-4.3 Jul 10, 2024 07:16 AM [facility] BASIC METABOLIC PANEL+MG Specimen Type: PLASMA No comment entered. Ordering Provider: JUANCARLOS ECHOLS S Report Released Date/Time: Jul 09, 2024 12:23 PM Reporting Lab: [facility] [address] Performing Lab: [facility] [address] CREATININE 0.7 mg/dL 0.7-1.2 UREA NITROGEN 27 [...] 12:23 PM Reporting Lab: [facility] [address] Performing Lab: [facility] [address] WBC 18.8 H 4.0-11.0 RBC 5.08 4.60-6.20 [...] 06:18 PM Reporting Lab: [facility] [address] Performing Lab: [facility] [address] WBC 15.3 H 4.0-11.0 RBC 4.91 4.60-6.20 [...] 08:41 AM Reporting Lab: [facility] [address] Performing Lab: [facility] [address] URINE COLOR YELLOW SPECIFIC GRAVITY >1.050 H [...] 04:49 PM Reporting Lab: [facility] [address] Performing Lab: [facility] [address] WBC 17.5 H 4.0-11.0 RBC 4.88 4.60-6.20 [...] 04:49 PM Reporting Lab: [facility] [address] Performing Lab: [facility] [address] PHOSPHORUS 2.6 mg/dL 2.3-4.3 Jul 08, 2024 09:54 AM [facility] BASIC METABOLIC PANEL+MG Specimen Type: PLASMA Comment: Specimen received in Lab at: [id number] Ordering Provider: JUANCARLOS ECHOLS Report Released Date/Time: Jul 07, 2024 04:49 PM Reporting Lab: [facility] [address] Performing Lab: [facility] [address] CREATININE 0.9 mg/dL 0.7-1.2 UREA NITROGEN 26 [...] 12:26 PM Reporting Lab: [facility] [address] Performing Lab: [facility] [address] C DIFF TOX B GENE PCR NEGATIVE Negative Jul 07, 2024 07:41 AM [facility] PHOSPHORUS Specimen Type: PLASMA No comment entered. Ordering Provider: JEVON ZAZUETA Report Released Date/Time: Jul 06, 2024 03:44 PM Reporting Lab: [facility] [address] Performing Lab: [facility] [address] PHOSPHORUS 3.1 mg/dL 2.3-4.3 Jul 07, 2024 07:41 AM [facility] BASIC METABOLIC PANEL+MG Specimen Type: PLASMA No comment entered. Ordering Provider: JEVON ZAZUETA Report Released Date/Time: Jul 06, 2024 03:44 PM Reporting Lab: [facility] [address] Performing Lab: [facility] [address] CREATININE 0.9 mg/dL 0.7-1.2 UREA NITROGEN 20 [...] 03:44 PM Reporting Lab: [facility] [address] Performing Lab: [facility] [address] WBC 21.2 H 4.0-11.0 RBC 5.09 4.60-6.20 [...] 01:22 PM Reporting Lab: [facility] [address] Performing Lab: [facility] [address] WBC 18.0 H 4.0-11.0 RBC 4.83 4.60-6.20 [...] 01:22 PM Reporting Lab: [facility] [address] Performing Lab: [facility] [address] PHOSPHORUS 3.6 mg/dL 2.3-4.3 Jul 06, 2024 07:21 AM [facility] BASIC METABOLIC PANEL+MG Specimen Type: PLASMA No comment entered. Ordering Provider: JEVON ZAZUETA Report Released Date/Time: Jul 05, 2024 01:22 PM Reporting Lab: [facility] [address] Performing Lab: [facility] [address] CREATININE 0.7 mg/dL 0.7-1.2 UREA NITROGEN 12 [...] 09:39 AM Reporting Lab: [facility] [address] Performing Lab: [facility] [address] MAGNESIUM 2.0 mg/dL 1.6-2.6 Jul 05, 2024 07:17 AM [facility] PHOSPHORUS Specimen Type: PLASMA No comment entered. Ordering Provider: JUANCARLOS ECHOLS S Report Released Date/Time: Jul 04, 2024 09:39 AM Reporting Lab: [facility] [address] Performing Lab: [facility] [address] PHOSPHORUS 2.0 mg/dL L 2.3-4.3 Jul 05, 2024 07:17 AM [facility] BASIC METABOLIC PANEL+MG Specimen Type: PLASMA No comment entered. Ordering Provider: JUANCARLOS ECHOLS S Report Released Date/Time: Jul 04, 2024 09:39 AM Reporting Lab: [facility] [address] Performing Lab: [facility] [address] CREATININE 0.7 mg/dL 0.7-1.2 UREA NITROGEN 12 [...] 09:39 AM Reporting Lab: [facility] [address] Performing Lab: [facility] [address] WBC 18.3 H 4.0-11.0 RBC 4.49 L 4.60-6.20 HGB 14.1 g/dL 13.5-17.9 HCT 43.4 41.0-54.0 MCV 96.7 fL 80.0-100.0 MCH 31.4 pg 27.0-33.0 MCHC 32.5 g/dL 32.0-37.5 PLT 317 150-400 MPV 10.0 fL 9.1-13.0 RDW 13.9 11.5-14.5 Jul 04, 2024 07:17 AM [facility] BASIC METABOLIC PANEL+MG Specimen Type: PLASMA No comment entered. Ordering Provider: GABINO CMAERON Report Released Date/Time: Jul 03, 2024 06:31 PM Reporting Lab: [facility] [address] Performing Lab: [facility] [address] CREATININE 0.7 mg/dL 0.7-1.2 UREA NITROGEN 16 [...] 06:31 PM Reporting Lab: [facility] [address] Performing Lab: [facility] [address] PHOSPHORUS 2.8 mg/dL 2.3-4.3 Jul 04, 2024 07:16 AM [facility] CBC Specimen Type: BLOOD No comment entered. Ordering Provider: GABINO CAMERON Report Released Date/Time: Jul 03, 2024 06:31 PM Reporting Lab: [facility] [address] Performing Lab: [facility] [address] WBC 20.6 H 4.0-11.0 RBC 4.63 4.60-6.20 HGB 14.2 g/dL 13.5-17.9 HCT 43.4 41.0-54.0 MCV 93.7 fL 80.0-100.0 MCH 30.7 pg 27.0-33.0 MCHC 32.7 g/dL 32.0-37.5 PLT 329 150-400 MPV 10.4 fL 9.1-13.0 RDW 13.8 11.5-14.5 Jul 04, 2024 07:16 AM [facility] CBC & DIFF Specimen Type: BLOOD Comment: Manual Differential Performed Ordering Provider: GABION CAMERON Report Released Date/Time: Jul 03, 2024 06:31 PM Reporting Lab: [facility] [address] Performing Lab: [facility] [address] WBC 20.6 H 4.0-11.0 RBC 4.63 4.60-6.20 [...] 06:31 PM Reporting Lab: [facility] [address] Performing Lab: [facility] [address] BNP 292 pg/mL H <99 Jul 03, 2024 10:32 PM [facility] FINGERSTICK GLUCOSE Specimen Type: BLOOD Comment: Save Result Nurse Notified Ordering Provider: KATELYNN PERSON Report Released Date/Time: Jul 03, 2024 10:50 PM Reporting Lab: [facility] [address] Performing Lab: [facility] [address] FINGERSTICK GLUCOSE 126 mg/dL H 70-100 Jul 03, 2024 05:33 PM [facility] FINGERSTICK GLUCOSE Specimen Type: BLOOD Comment: Save Result Nurse Notified Ordering Provider: KATELYNN PERSON Report Released Date/Time: Jul 03, 2024 05:46 PM Reporting Lab: [facility] [address] Performing Lab: [facility] [address] FINGERSTICK GLUCOSE 141 mg/dL H 70-100 Jul 03, 2024 02:31 PM [facility] POC ABG/ELECTROLYTES Specimen Type: ARTERIAL BLOOD Comment: FIO2 = 97% Patient Temp: 36.0 C Sample Type = ARTERIAL Ordering Provider: MAZIN ARREDONDO Report Released Date/Time: Jul 03, 2024 01:48 PM Reporting Lab: [facility] [address] Performing Lab: [facility] [address] POC PH 7.387 7.35-7.45 POC PCO2 34.4 [...] 01:48 PM Reporting Lab: [facility] [address] Performing Lab: [facility] [address] POC PH 7.280 L 7.35-7.45 POC PCO2 [...] 04:01 PM Reporting Lab: [facility] [address] Performing Lab: [facility] [address] URINE COLOR YELLOW SPECIFIC GRAVITY 1.031 1.003-1.03 [...] 03:59 PM Reporting Lab: [facility] [address] Performing Lab: [facility] [address] WBC 15.8 H 4.0-11.0 RBC 5.11 4.60-6.20 [...] 06:07 PM Reporting Lab: [facility] [address] Performing Lab: [facility] [address] CREATININE 0.8 mg/dL 0.7-1.2 UREA NITROGEN 13 [...] 06:07 PM Reporting Lab: [facility] [address] Performing Lab: [facility] [address] WBC 15.5 H 4.0-11.0 RBC 4.93 4.60-6.20 [...] 05:51 PM Reporting Lab: [facility] [address] Performing Lab: [facility] [address] CREATININE 0.7 mg/dL 0.7-1.2 UREA NITROGEN 16 [...] 05:51 PM Reporting Lab: [facility] [address] Performing Lab: [facility] [address] WBC 14.9 H 4.0-11.0 RBC 5.09 4.60-6.20 [...] 05:51 PM Reporting Lab: [facility] [address] Performing Lab: [facility] [address] WBC 16.9 H 4.0-11.0 RBC 5.28 4.60-6.20 [...] 05:51 PM Reporting Lab: [facility] [address] Performing Lab: [facility] [address] CREATININE 0.7 mg/dL 0.7-1.2 UREA NITROGEN 17 [...] 05:45 PM Reporting Lab: [facility] [address] Performing Lab: [facility] [address] URINE COLOR YELLOW SPECIFIC GRAVITY 1.041 H [...] 06:07 PM Reporting Lab: [facility] [address] Performing Lab: [facility] [address] POC CREATININE 1.1 mg/dL 0.6-1.3 Jun 21, 2024 05:30 PM [facility] POC ABG/LACTATE Specimen Type: VENOUS BLOOD No comment entered. Ordering Provider: DELIA MARTINEZ Report Released Date/Time: Jun 21, 2024 06:07 PM Reporting Lab: [facility] [address] Performing Lab: [facility] [address] POC PH 7.470 H 7.31-7.41 POC PCO2 [...] 05:30 PM Reporting Lab: [facility] [address] Performing Lab: [facility] [address] .INR 1.2 H 0.8-1.1 .PT 13.9 s H 9.4-12.5 Jun 21, 2024 05:24 PM [facility] LIPASE Specimen Type: PLASMA No comment entered. Ordering Provider: DELIA MARTINEZ Report Released Date/Time: Jun 21, 2024 05:30 PM Reporting Lab: [facility] [address] Performing Lab: [facility] [address] LIPASE 32 U/L <60 Jun 21, 2024 05:24 PM [facility] EXTRA GOLD GEL TUBE Specimen Type: SERUM No comment entered. Ordering Provider: DELIA MARTINEZ Report Released Date/Time: Jun 21, 2024 05:41 PM Reporting Lab: [facility] [address] Performing Lab: [facility] [address] EXTRA GOLD GEL TUBE RECEIVED Jun 21, 2024 05:24 PM [facility] COMPREHENSIVE METABOLIC PANEL+MG Specimen Type: PLASMA No comment entered. Ordering Provider: DELIA MARTINEZ Report Released Date/Time: Jun 21, 2024 05:30 PM Reporting Lab: [facility] [address] Performing Lab: [facility] [address] CREATININE 0.9 mg/dL 0.7-1.2 UREA NITROGEN 29 [...] 05:30 PM Reporting Lab: [facility] [address] Performing Lab: [facility] [address] WBC 21.3 H 4.0-11.0 RBC 5.48 4.60-6.20 [...] Height Weight Body Mass Index Source Jul 16, 2024 12:17 PM 0 JAIME LOZANO [facility] Social History: Smoking Status (Most current) and Tobacco Use (All prior to encounter date) This section includes the most current, and the historical, smoking and tobacco- related health factors from the [facility] where the Encounter took place. Current Smoking [...] 06:15 PM CHEST 1 VIEW: FLACA WEAVER [id number] -1950 M Exm Date: JUL 18, 2024@18:15 Req Phys: LEISA GOLDEN Loc: /07-18-2024@19:00 Img Loc: MAIN X-RAY Service: PRIMARY [place]ARE [place] [address] (Case [id number] COMPLETE) CHEST 1 VIEW (RAD Detailed) CPT:02328 Proc Modifiers : PORTABLE EXAM Reason for Study: SOB Clinical History: [place] IS NOT under investigation for COVID-19 or is COVID-19 negative 73 yo with SOB Responsible provider name and phone number to notify for critical findings if other than user placing the order and pager listed below: User placing orders pager: [phone] LAST CREATININE 1.2 (07/17/24) Report Status: Verified Date Reported: JUL 18, 2024 Date Verified: JUL 18, 2024 Steam Hammer Operator E-Sig:/ES/CARLOS A CUNNINGHAM DO Report: EXAMINATION: CHEST 1 VIEW Reason for Study: SOB [place] IS NOT under investigation for COVID-19 or is COVID-19 negative 73 yo with SOB Responsible provider name and phone number to notify for critical findings if other than user placing the order and pager listed below: User placing orders pager: [phone] LAST CREATININE 1.2 (07/17/24) SOB TECHNIQUE: Single [...] Interpreting Staff: CARLOS A CUNNINGHAM DO, RADIOLOGIST (Steam Hammer Operator) /CARLOS A ROWELL [facility] Jul 16, 2024 07:[address] ABDOMEN/PELVIS: FLACA WEAVER [id number] -1950 M Exm Date: JUL 16, 2024@07:49 Req Phys: JATINDER CABRERA Loc: 07-17-2024@09:02 Img Loc: OUTSOURCE CT Service: Unknown (Case [id number] COMPLETE) NON [place] ABDOMEN/PELVIS (CT Detailed) CPT:17450 Reason for Study: outside study Clinical History: [...] Diagnostic Code: VERIFIED BY: / *ELECTRONICALLY FILED* [facility] Jul 13, 2024 09:[address] ABDOMEN/PELVIS: FLACA WEAVER [id number] -1950 M Exm Date: JUL 13, 2024@09:41 Req Phys: JATINDER CABRERA Loc: 07-17-2024@09:08 Img Loc: OUTSOURCE CT Service: Unknown (Case [id number] COMPLETE) NON [place] CT ABDOMEN/PELVIS (CT Detailed) CPT:28638 Reason for Study: outside study Clinical History: [...] Diagnostic Code: VERIFIED BY: / *ELECTRONICALLY FILED* [facility] Jul 08, 2024 10:09 AM CHEST 2 VIEWS PA AND LAT: FLACA WEAVER [id number] -1950 M Exm Date: JUL 08, 2024@10:09 Req Phys: KATELYNN PERSON Pat Loc: [facility]/07-08-2024@11:49 Img Loc: MAIN X-RAY Service: [facility] [place] [address] (Case 24 COMPLETE) CHEST 2 VIEWS PA AND LAT (RAD Detailed) CPT:89222 Reason for Study: Uptrending WBC, POD 5 Clinical History: [place] IS NOT under investigation for COVID-19 or is COVID-19 negative POD 5, work up for uptrending wbc Responsible provider name and phone number to notify for critical findings if other than user placing the order and pager listed below: User placing orders pager: Katelynn Person LAST CREATININE 0.9 (07/07/24) Report Status: Verified Date Reported: JUL 08, 2024 Date Verified: JUL 08, 2024 Steam Hammer Operator E-Sig: Report: CHEST 2 VIEWS PA [...] cardiopulmonary disease. READING PHYSICIAN: Sarbjit Vaughn M.D. -[id number] 07/08/2024 12:46 EST [facility] National Teleradiology Program [phone] (For Medical Practitioner Use Only) Attention Patients / Veterans: If you have questions or concerns about these test results, please contact your ordering provider or primary care team. Primary Interpreting Staff: RADIOLOGY,OUTSIDE SERVICE, Staff Physician / RADIOLOGY,OUTSIDE SERVICE [facility] Jul 08, 2024 10:[address] (AP) ABDOMEN/PELVIS W CONTRAST: FLACA WEAVER [id number] -1950 M Exm Date: JUL 08, 2024@10:00 Req Phys: KATELYNN PERSON Loc: 2KG/07-08-2024@12:07 Img Loc: CT IMAGING Service: [facility] [address] (Case 22 COMPLETE) CT (AP) ABDOMEN/PELVIS W CONTRAST(CT Detailed) CPT:96869 Contrast Media : Non-ionic Iodinated Reason for [...] PLASMA .CREAT EGFR(CKD-E >90 Ref: >=60 Allergies: ([place] only) TERAZOSIN (Mar 13, 2015) Report Status: Verified Date Reported: JUL 08, 2024 Date Verified: JUL 08, 2024 Steam Hammer Operator E-Sig: Report: CT (AP) ABDOMEN/PELVIS W [...] as noted above READING PHYSICIAN: Celestino Blanc -[phone] 07/08/2024 13:04 EST [facility] National Teleradiology Program [phone] (For Medical Practitioner Use Only) Attention Patients / Veterans: If you have questions or concerns about these test results, please contact your ordering provider or primary care team. Primary Interpreting Staff: RADIOLOGY,OUTSIDE SERVICE, Staff Physician / RADIOLOGY,OUTSIDE SERVICE [facility] Jun 22, 2024 11:49 AM ABSCESS DRAIN PLACEMENT PERITONEAL (P): FLACA WEAVER [id number] -1950 M Exm Date: JUN 22, 2024@11:49 Req Phys: ANGELA HOLDEN Loc: [facility]/06-22-2024@17:14 Img Loc: INTERVENTIONAL RADIOLOGY Service: [facility] [address] (Case [id number] COMPLETE) IR PERITONEAL/RETROPERITONEAL PER(ANI Detailed) CPT:61423 Reason for Study: diverticulitis with abscess (Case [id number] COMPLETE) IR MOD SEDATION 10-22 MIN (ANI Detailed) CPT:85692 Clinical History: [place] IS NOT under investigation for COVID-19 or is COVID-19 negative 73 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 please place abscess drain. Contact number for responsible provider who can be reached for any questions or notifications of critical findings: [phone] n/a LAST CREATININE 0.9 (06/21/24) Report Status: Verified Date Reported: JUN 22, 2024 Date Verified: JUN 22, 2024 Steam Hammer Operator E-Sig:/ES/LISA PENDLETON MD Report: PROCEDURES: Placement [...] anesthesia. Using real-time CT fluoroscopy, a 5 Iraqi Semanticator centesis catheter was advanced into the collection in the left pelvis. A wire was coiled in the collection. The tract into the collection was dilated to accommodate the 12 Iraqi locking pigtail drainage catheter. There was return [...] sigmoid resection on 07/03/2024. Primary Interpreting Staff: ILSA PENDLETON MD, RADIOLOGIST (Steam Hammer Operator) /JRT LISA PENDLETON [facility] Jun 22, 2024 11:[address] NEEDLE PLACEMENT (P): MEGFLACA LOBO [id number] -1950 M Exm Date: JUN 22, 2024@11:48 Req Phys: ANGELA HOLDEN [facility] Loc: [facility]/06-22-2024@17:14 Img Loc: CT IMAGING Service: [place] [address] (Case [id number] COMPLETE) CT SCAN FOR NEEDLE PLACEMENT (CT Detailed) CPT:88916 Reason for Study: l pelvic abscess drain Clinical History: Report Status: Verified Date Reported: JUN 22, 2024 Date Verified: JUN 22, 2024 Steam Hammer Operator E-Sig:/ES/LISA PENDLETON MD Report: PROCEDURES: Placement [...] anesthesia. Using real-time CT fluoroscopy, a 5 Iraqi BadSeedesis catheter was advanced into the collection in the left pelvis. A wire was coiled in the collection. The tract into the collection was dilated to accommodate the 12 Iraqi locking pigtail drainage catheter. There was return [...] Primary Interpreting Staff: LISA PENDLETON MD, RADIOLOGIST (Steam Hammer Operator) /JRT LISA PENDLETON [facility] Jun 21, 2024 06:[address] (AP) ABDOMEN/PELVIS (P): FLACA WEAVER [id number] -1950 M Exm Date: JUN 21, 2024@18:09 Req Phys: DELIA MARTINEZ Loc: [facility] EMERGENCY DEPT WALK-IN (Re Img Loc: CT IMAGING Service: [place] [address] (Case [id number] COMPLETE) CT (AP) ABDOMEN/PELVIS W CONTRAST(CT Detailed) CPT:06417 Contrast Media : Non-ionic Iodinated Reason for [...] PLASMA .CREAT EGFR(CKD-E >90 Ref: >=60 Allergies: ([facility]) TERAZOSIN (Mar 13, 2015) Defer to [...] 21, 2024 Date Verified: JUN 21, 2024 Steam Hammer Operator E-Sig:/ALEXI/CARLOS A CUNNINGHAM DO Report: EXAMINATION: [...] Interpreting Staff: CARLOS A CUNNINGHAM DO, RADIOLOGIST (Steam Hammer Operator) /CARLOS A ROWELL [facility] Pathology [...] PORT: Reporting Lab: [facility] [CLIA# [id number]] [place] [address] Accession [UID]: [id number] [[id number]] Received: Jul 16, 2024@14:41 Collection sample: BLOOD Collection date: Jul 16, 2024 14:07 Provider: LEISA GOLDEN Comment on specimen: R AC, RECEIVED 2 BLOOD CULTURE BOTTLES Test(s) ordered: CULTURE & SUSCEPTIBILITY...... completed: Jul 22, 2024 * BACTERIOLOGY FINAL REPORT => Jul 22, 2024 13:39 TECH CODE: [id number] CULTURE RESULTS: NO GROWTH 5 DAYS Bacteriology Remark(s): THIS REPORT IS FINAL =--=--=--=--=--=--=--=--=--= --=--=--=--=--=--=--=--=--=- -=--=--=--=--=--=--=-- Performing Laboratory: Bacteriology Report Performed By: [facility] [CLIA# [id number]] [place] [address] [facility] Jul 16, 2024 01:54 PM LR MICROBIOLOGY RE PORT: Reporting Lab: [facility] [CLIA# [id number]] [place] [address] Accession [UID]: [id number] [[id number]] Received: Jul 16, 2024@14:41 Collection sample: BLOOD Collection date: Jul 16, 2024 13:54 Provider: LEISA GOLDEN Comment on specimen: L AC, RECEIVED 2 BLOOD CULTURE BOTTLES Test(s) ordered: CULTURE & SUSCEPTIBILITY...... completed: Jul 22, 2024 * BACTERIOLOGY FINAL REPORT => Jul 22, 2024 13:39 TECH CODE: [id number] CULTURE RESULTS: NO GROWTH 5 DAYS Bacteriology Remark(s): THIS REPORT IS FINAL =--=--=--=--=--=--=--=--=--= --=--=--=--=--=--=--=--=--=- -=--=--=--=--=--=--=-- Performing Laboratory: Bacteriology Report Performed By: [facility] [CLIA# [id number]] [place] [address] [facility] Jul 03, 2024 05:59 AM LR SURGICAL PATHOL OGY REPORT: LOCAL TITLE: LR SURGICAL PATHOLOGY REPORT STANDARD TITLE: PATHOLOGY REPORT DATE OF NOTE: JUL 06, 2024@10:40:48 ENTRY DATE: JUL 06, 2024@10:40:48 AUTHOR: EDUARDO PALOMARES EXP COSIGNER: URGENCY: STATUS: COMPLETED $APHDR Reporting Lab: [facility] [CLIA# [id number]] [place] [address] - - - - - - - [...] - - - PATHOLOGY REPORT Accession No. [id number] - - - - - - - [...] - - - PATHOLOGY REPORT Accession No. [id number] - - - - - - - [...] Second circumferential surgical margin, en face; E-F: Java Spring Developer diverticula; G: Java Spring Developer section of mesentery; H: Random pharmaceutical representative section of additional adipose tissue fragment. [...] Report Performed By: [facility] [CLIA# [id number]] [place] [address] $FTR - - - - - - - - - - - - - - - - - - - - - - - - - - - - - - - - - - - - - - - - (End of report) EDUARDO PALOMARES MD [facility] Date Jul 06, 2024 - - - - - - - - - - - - - - - - - - - - - - - - - - - - - - - - - - - - - - - - FLACA WEAVER STANDARD FORM 515 ID:[id number] SEX:M :1950 AGE: 73 LOC:94700 ADM:Jun DX:DIVERTICULITIS PCP: Jatinder Cabrera /alexi/ EDUARDO PALOMARES MD STAFF PATHOLOGIST Signed: 07/06/2024 10:40 EDUARDO PALOMARES [facility] Jun 22, 2024 01:15 PM LR MICROBIOLOGY RE PORT: Reporting Lab: [facility] [CLIA# [id number]] [place] [address] Accession [UID]: [id number] [[id number]] Received: Jun 22, 2024@13:38 Collection sample: FLUID Collection date: Jun 22, 2024 13:15 Provider: ANGELA OHLDEN Comment on specimen: LLQ ABSCESS, RECEIVED IN ANAEROBIC TRANSPORT VIAL Test(s) ordered: GRAM STAIN.................... completed: Jun 22, 2024 15:03 CULTURE & SUSCEPTIBILITY...... completed: Jun 25, 2024 * BACTERIOLOGY FINAL REPORT => Jun 25, 2024 10:56 TECH CODE: [id number] GRAM STAIN: DIRECT SMEAR of specimen before [...] Report Performed By: [facility] [CLIA# [id number]] [place] [address] [facility] Jun 22, 2024 01:15 PM LR MICROBIOLOGY RE PORT: Reporting Lab: [facility] [CLIA# [id number]] [place] [id number] Accession [UID]: [id number] [[id number]] Received: Jun 22, 2024@13:38 Collection sample: FLUID Collection date: Jun 22, 2024 13:15 Provider: ANGELA HOLDEN Comment on specimen: LLQ ABSCESS, RECEIVED IN ANAEROBIC TRANSPORT VIAL Test(s) ordered: ANAEROBIC CULTURE............. completed: Jun 28, 2024 * BACTERIOLOGY FINAL REPORT => Jun 28, 2024 10:08 TECH CODE: [id number] CULTURE RESULTS: HEAVY GROWTH MIXED ANAEROBES Comment: [...] Report Performed By: [facility] [CLIA# [id number]] [place] [address] [facility] Jun 21, 2024 06:12 PM LR MICROBIOLOGY RE PORT: Reporting Lab: [facility] [IA# [id number]] [place] [address] Accession [UID]: [id number] [[id number]] Received: Jun 21, 2024@18:12 Collection sample: BLOOD [...] Report Performed By: [facility] [CLIA# [id number]] [place] [address] [facility] Jun 21, 2024 06:11 PM LR MICROBIOLOGY RE PORT: Reporting Lab: [facility] [CLIA# [id number]] [place] [address] Accession [UID]: [id number] [[id number]] Received: Jun 21, 2024@18:11 Collection sample: BLOOD [...] Report Performed By: [facility] [CLIA# [id number]] [place] [address] [facility] Encounter Notes: All associated encounter notes This section contains the clinical notes associated to the Encounter. Date/Time Encounter Note(s) Provider Source Jul 16, 2024 06:39 AM RN PROGRESS NOTE: [facility] TITLE: [facility] CLINICAL TRIAGE STANDARD TITLE: RN PROGRESS NOTE DATE OF NOTE: JUL 16, 2024@06:39:24 ENTRY DATE: JUL 16, 2024@06:39:24 AUTHOR: ALFREDO BLEVINS EXP COSIGNER: URGENCY: STATUS: COMPLETED Patient Demographics Patient Name: FLACA WEAVER Patient Primary [address]: [address] [place] [id number] Patient Primary Phone: [phone] Patient : 1950 Patient Age: 73 Current Location: In route to the [facility] ER. Call Back Number: [phone] Caller/Recipient Relation to Patient: Self Emergency Contact: NIMO PIÑA Nursing Plan and Disposition Other course(s) of action Generated msg to PACT/Provider Alternative course of action Alternative courses of action: reports he is already at the local ER and going inside for evaluation. Nurse Summary Nurse Summary: was transferred from [facility] due to his report of being in in route to the local ER for SOB and CP. reports his SOB is with exertion and the pain he believes is due to his current diagnosis of diverticulosis. The [place] reports that he has been treated in the hospital several times lately due to symptoms associated with diverticulosis. He expresses feeling frustrated because I get out of the hospital and before long I am right back in again. The [place] states he is being driven to the local ER and they are almost there now. did allow this nurse to stay on the line with him until he he reports that he has safely arrived. He is asking if [facility] and this nurse explained that will be a conversation his treating doctor at the ER where he is now will need to have with a doctor at the [facility]. [place] expressed good understanding and says he is on his way into the ER for treatment. Please follow up on this ER episode of care and thank you. Triage deferred as the [place] is already at the local ER. Non-Triage/Non-Symptom Call Generated msg to PACT/Provider-NonTriage Clinical Contact Center Codes Clinic/Location: [facility] PHONE CCC RN IMPORTANT: This note was created by [facility] Clinical Contact Center staff. Please do not alert the staff member by adding them as a signer for future communications. Alerts are not monitored by this user. /alexi/ ALFREDO BLEVINS RN, CHPN TELECARE NURSE Signed: 07/16/2024 06:39 Receipt Acknowledged By: 07/16/2024 14:29 /alexi/ Jatinder Cabrera MD Physician 07/16/2024 08:49 /es/ SAMANTA RODRIGUEZ REGISTERED NURSE for ALFREDO LAI [facility]
--- OUTSIDE RECORDS SUMMARY | 2024-08-01 07:50 | XMS_ITS ---
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 Date/Time Encounter Type Encounter Description Reason Pro vider Source Jul 21, 2024 01:32 PM Inpatient Visit DAILY HOSPITALIZATION DATA IHE [...] Chemi stry Order URINALYSIS URINE WC ONCE [facility] Jun 12, 2024 12:00 AM Laboratory - Chemi stry Order BNP PLASMA SP ONCE [facility] Jun 21, 2024 05:45 PM Laboratory - Blood Bank Order TYPE & SCREEN - LAB BLOOD WC [facility] Jul 03, 2024 12:00 AM Laboratory - Blood Bank Order TYPE & SCREEN - LAB BLOOD WC [facility] Jul 16, 2024 12:00 AM Laboratory - Chemi stry Order CBC BLOOD SP ONCE [facility] Jul 17, 2024 12:00 AM Laboratory - Chemi stry Order BASIC METABOLIC PANEL+MG PLASMA SP ONCE [facility] Lab Results: +/- 30 days of [...] Range Comment Jul 21, 2024 10:38 AM [facility] BASIC METABOLIC PANEL+MG Specimen Type: PLASMA No comment entered. Ordering Provider: SARAI GOLDEN Report Released Date/Time: Jul 20, 2024 06:50 PM Reporting Lab: [facility] [address] Performing Lab: [facility] [address] CREATININE 0.8 mg/dL 0.7-1.2 UREA NITROGEN 31 mg/dL H 8-26 GLUCOSE 120 mg/dL H 70-100 SODIUM 125 mmol/L L 136-145 POTASSIUM 4.4 mmol/L 3.5-5.1 CHLORIDE 100 mmol/L 98-107 CO2 17 mmol/L L 22-29 CALCIUM 9.6 mg/dL 8.4-10.2 MAGNESIUM 1.9 mg/dL 1.6-2.6 ANION GAP 8 mmol/L 5-15 .CREAT EGFR(CKD-EPI) >90 >60 Jul 21, 2024 10:38 AM [facility] CBC Specimen Type: BLOOD No comment entered. Ordering Provider: SARAI GOLDEN Report Released Date/Time: Jul 20, 2024 06:50 PM Reporting Lab: [facility] [address] Performing Lab: [facility] [address] WBC 16.0 H 4.0-11.0 RBC 5.16 4.60-6.20 HGB 15.8 g/dL 13.5-17.9 HCT 45.5 41.0-54.0 MCV 88.2 fL 80.0-100.0 MCH 30.6 pg 27.0-33.0 MCHC 34.7 g/dL 32.0-37.5 PLT 428 H 150-400 MPV 10.8 fL 9.1-13.0 RDW 13.6 11.5-14.5 Jul 20, 2024 01:00 PM [facility] SODIUM,URINE RANDOM Specimen Type: URINE No comment entered. Ordering Provider: SARAI GOLDEN Report Released Date/Time: Jul 20, 2024 08:22 AM Reporting Lab: [facility] [address] Performing Lab: [facility] [address] SODIUM,URINE RANDOM <20 mmol/L Jul 20, 2024 01:00 PM [facility] OSMOLALITY,URINE Specimen Type: URINE No comment entered. Ordering Provider: SARAI GOLDEN Report Released Date/Time: Jul 20, 2024 08:22 AM Reporting Lab: [facility] [address] Performing Lab: [facility] [address] OSMOLALITY,URIN E 648 mosm/kg 500-800 Jul 20, 2024 06:45 AM [facility] BASIC METABOLIC PANEL+MG Specimen Type: PLASMA No comment entered. Ordering Provider: SARAI GOLDEN Report Released Date/Time: Jul 19, 2024 06:13 PM Reporting Lab: [facility] [address] Performing Lab: [facility] [address] CREATININE 0.8 mg/dL 0.7-1.2 UREA NITROGEN 36 mg/dL H 8-26 GLUCOSE 111 mg/dL H 70-100 SODIUM 121 mmol/L L 136-145 POTASSIUM 4.1 mmol/L 3.5-5.1 CHLORIDE 99 mmol/L 98-107 CO2 14 mmol/L L 22-29 CALCIUM 9.5 mg/dL 8.4-10.2 MAGNESIUM 1.8 mg/dL 1.6-2.6 ANION GAP 8 mmol/L 5-15 .CREAT EGFR(CKD-EPI) >90 >60 Jul 20, 2024 06:43 AM [facility] CBC & DIFF Specimen Type: BLOOD Comment: Automated Differential Performed Ordering Provider: SARAI GOLDEN Report Released Date/Time: Jul 19, 2024 06:13 PM Reporting Lab: [facility] [address] Performing Lab: [facility] [address] WBC 16.6 H 4.0-11.0 RBC 4.96 4.60-6.20 [...] H 0.0-0.1 Jul 20, 2024 05:30 AM [facility] OSMOLALITY,SERUM Specimen Type: SERUM No comment entered. Ordering Provider: SARAI GOLDEN Report Released Date/Time: Jul 20, 2024 09:47 AM Reporting Lab: [facility] [address] Performing Lab: [facility] [address] OSMOLALITY,SERU M 266 mosm/kg L 276-305 Jul 19, 2024 08:57 AM [facility] BASIC METABOLIC PANEL+MG Specimen Type: PLASMA No comment entered. Ordering Provider: SARAI GOLDEN Report Released Date/Time: Jul 18, 2024 10:24 PM Reporting Lab: [facility] [address] Performing Lab: [facility] [address] CREATININE 1.0 mg/dL 0.7-1.2 UREA NITROGEN 40 mg/dL H 8-26 GLUCOSE 104 mg/dL H 70-100 SODIUM 129 mmol/L L 136-145 POTASSIUM 3.3 mmol/L L 3.5-5.1 CHLORIDE 104 mmol/L 98-107 CO2 16 mmol/L L 22-29 CALCIUM 8.0 mg/dL L 8.4-10.2 MAGNESIUM 1.7 mg/dL 1.6-2.6 ANION GAP 9 mmol/L 5-15 .CREAT EGFR(CKD-EPI) 80 >60 Jul 19, 2024 08:57 AM [facility] CBC Specimen Type: BLOOD No comment entered. Ordering Provider: SARAI GOLDEN Report Released Date/Time: Jul 18, 2024 10:24 PM Reporting Lab: [facility] [address] Performing Lab: [facility] [address] WBC 17.3 H 4.0-11.0 RBC 4.83 4.60-6.20 HGB 14.8 g/dL 13.5-17.9 HCT 42.6 41.0-54.0 MCV 88.2 fL 80.0-100.0 MCH 30.6 pg 27.0-33.0 MCHC 34.7 g/dL 32.0-37.5 PLT 456 H 150-400 MPV 10.8 fL 9.1-13.0 RDW 13.7 11.5-14.5 Jul 17, 2024 06:55 PM [facility] PHOSPHORUS Specimen Type: PLASMA No comment entered. Ordering Provider: SARAI GOLDEN Report Released Date/Time: Jul 17, 2024 01:54 PM Reporting Lab: [facility] [address] Performing Lab: [facility] [address] PHOSPHORUS 2.9 mg/dL 2.3-4.3 Jul 17, 2024 06:55 PM [facility] BASIC METABOLIC PANEL+MG Specimen Type: PLASMA No comment entered. Ordering Provider: SARAI GOLDEN Report Released Date/Time: Jul 17, 2024 01:54 PM Reporting Lab: [facility] [address] Performing Lab: [facility] [address] CREATININE 1.2 mg/dL 0.7-1.2 UREA NITROGEN 62 mg/dL H 8-26 GLUCOSE 116 mg/dL H 70-100 SODIUM 128 mmol/L L 136-145 POTASSIUM 3.8 mmol/L 3.5-5.1 CHLORIDE 100 mmol/L 98-107 CO2 16 mmol/L L 22-29 CALCIUM 9.3 mg/dL 8.4-10.2 MAGNESIUM 2.1 mg/dL 1.6-2.6 ANION GAP 12 mmol/L 5-15 .CREAT EGFR(CKD-EPI) 64 >60 Jul 17, 2024 07:00 AM [facility] CBC & DIFF Specimen Type: BLOOD Comment: Manual Differential Performed Ordering Provider: SARAI GOLDEN Report Released Date/Time: Jul 16, 2024 04:52 PM Reporting Lab: [facility] [address] Performing Lab: [facility] [address] WBC 18.9 H 4.0-11.0 RBC 5.55 4.60-6.20 [...] MORPHOLOGY PRESENT Jul 17, 2024 07:00 AM [facility] ALBUMIN Specimen Type: PLASMA No comment entered. Ordering Provider: SARAI GOLDEN Report Released Date/Time: Jul 16, 2024 12:12 PM Reporting Lab: [facility] [address] Performing Lab: [facility] [address] ALBUMIN 4.3 g/dL 3.5-5.0 Jul 17, 2024 07:00 AM [facility] COMPREHENSIVE METABOLIC PANEL+MG Specimen Type: PLASMA No comment entered. Ordering Provider: SARAI GOLDEN Report Released Date/Time: Jul 16, 2024 04:52 PM Reporting Lab: [facility] [address] Performing Lab: [facility] [address] CREATININE 1.3 mg/dL H 0.7-1.2 UREA NITROGEN [...] L >60 Jul 16, 2024 07:10 PM [facility] LACTIC ACID Specimen Type: PLASMA No comment entered. Ordering Provider: SARAI GOLDEN Report Released Date/Time: Jul 16, 2024 12:12 PM Reporting Lab: [facility] [address] Performing Lab: [facility] [address] LACTIC ACID 0.9 mmol/L 0.5-2.2 Jul 16, 2024 02:14 PM [facility] MRSA SURVL NARES DNA Specimen Type: NARES No comment entered. Ordering Provider: SARAI GOLDEN Report Released Date/Time: Jul 16, 2024 12:12 PM Reporting Lab: [facility] [address] Performing Lab: [facility] [address] MRSA SURVL NARES DNA NEGATIVE Negative Jul 16, 2024 02:10 PM [facility] LACTIC ACID Specimen Type: PLASMA No comment entered. Ordering Provider: SARAI GOLDEN Report Released Date/Time: Jul 16, 2024 12:12 PM Reporting Lab: [facility] [address] Performing Lab: [facility] [address] LACTIC ACID 0.9 mmol/L 0.5-2.2 Jul 16, 2024 02:08 PM [facility] COMPREHENSIVE METABOLIC PANEL+MG Specimen Type: PLASMA No comment entered. Ordering Provider: SARAI GOLDEN Report Released Date/Time: Jul 16, 2024 12:12 PM Reporting Lab: [facility] [address] Performing Lab: [facility] [address] CREATININE 2.0 mg/dL H 0.7-1.2 UREA NITROGEN [...] L >60 Jul 16, 2024 02:08 PM [facility] CBC & DIFF Specimen Type: BLOOD Comment: Manual Differential Performed Ordering Provider: SARAI GOLDEN Report Released Date/Time: Jul 16, 2024 12:12 PM Reporting Lab: [facility] [address] Performing Lab: [facility] [address] WBC 19.7 H 4.0-11.0 RBC 5.39 4.60-6.20 [...] MORPHOLOGY PRESENT Jul 10, 2024 07:16 AM [facility] PHOSPHORUS Specimen Type: PLASMA No comment entered. Ordering Provider: JUANCARLOS ECHOLS Report Released Date/Time: Jul 09, 2024 12:23 PM Reporting Lab: [facility] [address] Performing Lab: [facility] [address] PHOSPHORUS 3.0 mg/dL 2.3-4.3 Jul 10, 2024 07:16 AM [facility] BASIC METABOLIC PANEL+MG Specimen Type: PLASMA No comment entered. Ordering Provider: JUANCARLOS ECHOLS S Report Released Date/Time: Jul 09, 2024 12:23 PM Reporting Lab: [facility] [address] Performing Lab: [facility] [address] CREATININE 0.7 mg/dL 0.7-1.2 UREA NITROGEN 27 mg/dL H 8-26 GLUCOSE 104 mg/dL H 70-100 SODIUM 133 mmol/L L 136-145 POTASSIUM 4.3 mmol/L 3.5-5.1 CHLORIDE 102 mmol/L 98-107 CO2 19 mmol/L L 22-29 CALCIUM 10.1 mg/dL 8.4-10.2 MAGNESIUM 1.9 mg/dL 1.6-2.6 ANION GAP 12 mmol/L 5-15 .CREAT EGFR(CKD-EPI) >90 >60 Jul 10, 2024 07:15 AM [facility] CBC Specimen Type: BLOOD No comment entered. Ordering Provider: JUANCARLOS ECHOLS Report Released Date/Time: Jul 09, 2024 12:23 PM Reporting Lab: [facility] [address] Performing Lab: [facility] [address] WBC 18.8 H 4.0-11.0 RBC 5.08 4.60-6.20 HGB 15.9 g/dL 13.5-17.9 HCT 46.8 41.0-54.0 MCV 92.1 fL 80.0-100.0 MCH 31.3 pg 27.0-33.0 MCHC 34.0 g/dL 32.0-37.5 PLT 479 H 150-400 MPV 10.2 fL 9.1-13.0 RDW 13.7 11.5-14.5 Jul 09, 2024 07:08 AM [facility] CBC Specimen Type: BLOOD No comment entered. Ordering Provider: QUYNH WEISS Report Released Date/Time: Jul 08, 2024 06:18 PM Reporting Lab: [facility] [address] Performing Lab: [facility] [address] WBC 15.3 H 4.0-11.0 RBC 4.91 4.60-6.20 HGB 15.1 g/dL 13.5-17.9 HCT 45.7 41.0-54.0 MCV 93.1 fL 80.0-100.0 MCH 30.8 pg 27.0-33.0 MCHC 33.0 g/dL 32.0-37.5 PLT 443 H 150-400 MPV 10.0 fL 9.1-13.0 RDW 13.5 11.5-14.5 Jul 08, 2024 10:50 AM [facility] URINALYSIS Specimen Type: URINE No comment entered. Ordering Provider: KATELYNN PERSON Report Released Date/Time: Jul 08, 2024 08:41 AM Reporting Lab: [facility] [address] Performing Lab: [facility] [address] URINE COLOR YELLOW SPECIFIC GRAVITY >1.050 H [...] NEGATIVE NEGATIVE Jul 08, 2024 09:54 AM [facility] CBC Specimen Type: BLOOD Comment: Specimen received in Lab at: [id number] Ordering Provider: JUANCARLOS ECHOLS Report Released Date/Time: Jul 07, 2024 04:49 PM Reporting Lab: [facility] [address] Performing Lab: [facility] [address] WBC 17.5 H 4.0-11.0 RBC 4.88 4.60-6.20 HGB 14.9 g/dL 13.5-17.9 HCT 45.7 41.0-54.0 MCV 93.6 fL 80.0-100.0 MCH 30.5 pg 27.0-33.0 MCHC 32.6 g/dL 32.0-37.5 PLT 472 H 150-400 MPV 10.2 fL 9.1-13.0 RDW 13.7 11.5-14.5 Jul 08, 2024 09:54 AM [facility] PHOSPHORUS Specimen Type: PLASMA Comment: Specimen received in Lab at: [id number] Ordering Provider: JUANCARLOS ECHOLS Report Released Date/Time: Jul 07, 2024 04:49 PM Reporting Lab: [facility] [address] Performing Lab: [facility] [address] PHOSPHORUS 2.6 mg/dL 2.3-4.3 Jul 08, 2024 09:54 AM [facility] BASIC METABOLIC PANEL+MG Specimen Type: PLASMA Comment: Specimen received in Lab at: [id number] Ordering Provider: JUANCARLOS ECHOLS Report Released Date/Time: Jul 07, 2024 04:49 PM Reporting Lab: [facility] [address] Performing Lab: [facility] [address] CREATININE 0.9 mg/dL 0.7-1.2 UREA NITROGEN 26 mg/dL 8-26 GLUCOSE 128 mg/dL H 70-100 SODIUM 134 mmol/L L 136-145 POTASSIUM 3.4 mmol/L L 3.5-5.1 CHLORIDE 100 mmol/L 98-107 CO2 24 mmol/L 22-29 CALCIUM 9.8 mg/dL 8.4-10.2 MAGNESIUM 1.8 mg/dL 1.6-2.6 ANION GAP 10 mmol/L 5-15 .CREAT EGFR(CKD-EPI) >90 >60 Jul 07, 2024 02:00 PM [facility] C DIFF PANEL Specimen Type: FECES No comment entered. Ordering Provider: JEVON ZAZUETA Report Released Date/Time: Jul 07, 2024 12:26 PM Reporting Lab: [facility] [address] Performing Lab: [facility] [phone] C DIFF TOX B GENE PCR NEGATIVE Negative Jul 07, 2024 07:41 AM [facility] PHOSPHORUS Specimen Type: PLASMA No comment entered. Ordering Provider: JEVON ZAZUETA Report Released Date/Time: Jul 06, 2024 03:44 PM Reporting Lab: [facility] [address] Performing Lab: [facility] [address] PHOSPHORUS 3.1 mg/dL 2.3-4.3 Jul 07, 2024 07:41 AM [facility] BASIC METABOLIC PANEL+MG Specimen Type: PLASMA No comment entered. Ordering Provider: JEVON ZAZUETA Report Released Date/Time: Jul 06, 2024 03:44 PM Reporting Lab: [facility] [address] Performing Lab: [facility] [address] CREATININE 0.9 mg/dL 0.7-1.2 UREA NITROGEN 20 mg/dL 8-26 GLUCOSE 157 mg/dL H 70-100 SODIUM 136 mmol/L 136-145 POTASSIUM 3.7 mmol/L 3.5-5.1 CHLORIDE 102 mmol/L 98-107 CO2 21 mmol/L L 22-29 CALCIUM 9.8 mg/dL 8.4-10.2 MAGNESIUM 1.9 mg/dL 1.6-2.6 ANION GAP 13 mmol/L 5-15 .CREAT EGFR(CKD-EPI) >90 >60 Jul 07, 2024 07:40 AM [facility] CBC Specimen Type: BLOOD No comment entered. Ordering Provider: JEVON ZAZUETA Report Released Date/Time: Jul 06, 2024 03:44 PM Reporting Lab: [facility] [address] Performing Lab: [facility] [address] WBC 21.2 H 4.0-11.0 RBC 5.09 4.60-6.20 HGB 15.9 g/dL 13.5-17.9 HCT 48.3 41.0-54.0 MCV 94.9 fL 80.0-100.0 MCH 31.2 pg 27.0-33.0 MCHC 32.9 g/dL 32.0-37.5 PLT 500 H 150-400 MPV 10.3 fL 9.1-13.0 RDW 13.6 11.5-14.5 Jul 06, 2024 07:21 AM [facility] CBC Specimen Type: BLOOD No comment entered. Ordering Provider: JEVON ZAZUETA Report Released Date/Time: Jul 05, 2024 01:22 PM Reporting Lab: [facility] [address] Performing Lab: [facility] [address] WBC 18.0 H 4.0-11.0 RBC 4.83 4.60-6.20 HGB 14.6 g/dL 13.5-17.9 HCT 45.5 41.0-54.0 MCV 94.2 fL 80.0-100.0 MCH 30.2 pg 27.0-33.0 MCHC 32.1 g/dL 32.0-37.5 PLT 368 150-400 MPV 10.4 fL 9.1-13.0 RDW 13.6 11.5-14.5 Jul 06, 2024 07:21 AM [facility] PHOSPHORUS Specimen Type: PLASMA No comment entered. Ordering Provider: JEVON ZAZUETA Report Released Date/Time: Jul 05, 2024 01:22 PM Reporting Lab: [facility] [address] Performing Lab: [facility] [address] PHOSPHORUS 3.6 mg/dL 2.3-4.3 Jul 06, 2024 07:21 AM [facility] BASIC METABOLIC PANEL+MG Specimen Type: PLASMA No comment entered. Ordering Provider: JEVON ZAZUETA Report Released Date/Time: Jul 05, 2024 01:22 PM Reporting Lab: [facility] [address] Performing Lab: [facility] [address] CREATININE 0.7 mg/dL 0.7-1.2 UREA NITROGEN 12 mg/dL 8-26 GLUCOSE 108 mg/dL H 70-100 SODIUM 138 mmol/L 136-145 POTASSIUM 3.4 mmol/L L 3.5-5.1 CHLORIDE 104 mmol/L 98-107 CO2 20 mmol/L L 22-29 CALCIUM 9.3 mg/dL 8.4-10.2 MAGNESIUM 1.9 mg/dL 1.6-2.6 ANION GAP 14 mmol/L 5-15 .CREAT EGFR(CKD-EPI) >90 >60 Jul 05, 2024 07:17 AM [facility] MAGNESIUM Specimen Type: PLASMA No comment entered. Ordering Provider: JUANCARLOS ECHOLS S Report Released Date/Time: Jul 04, 2024 09:39 AM Reporting Lab: [facility] [address] Performing Lab: [facility] [address] MAGNESIUM 2.0 mg/dL 1.6-2.6 Jul 05, 2024 07:17 AM [facility] PHOSPHORUS Specimen Type: PLASMA No comment entered. Ordering Provider: JUANCARLOS ECHOLS S Report Released Date/Time: Jul 04, 2024 09:39 AM Reporting Lab: [facility] [address] Performing Lab: [facility] [address] PHOSPHORUS 2.0 mg/dL L 2.3-4.3 Jul 05, 2024 07:17 AM [facility] BASIC METABOLIC PANEL+MG Specimen Type: PLASMA No comment entered. Ordering Provider: JUANCARLOS ECHOLS S Report Released Date/Time: Jul 04, 2024 09:39 AM Reporting Lab: [facility] [address] Performing Lab: [facility] [address] CREATININE 0.7 mg/dL 0.7-1.2 UREA NITROGEN 12 mg/dL 8-26 GLUCOSE 84 mg/dL 70-100 SODIUM 135 mmol/L L 136-145 POTASSIUM 3.8 mmol/L 3.5-5.1 CHLORIDE 104 mmol/L 98-107 CO2 24 mmol/L 22-29 CALCIUM 9.3 mg/dL 8.4-10.2 MAGNESIUM 2.0 mg/dL 1.6-2.6 ANION GAP 7 mmol/L 5-15 .CREAT EGFR(CKD-EPI) >90 >60 Jul 05, 2024 07:16 AM [facility] CBC Specimen Type: BLOOD No comment entered. Ordering Provider: JUANCARLOS ECHOLS S Report Released Date/Time: Jul 04, 2024 09:39 AM Reporting Lab: [facility] [address] Performing Lab: [facility] [address] WBC 18.3 H 4.0-11.0 RBC 4.49 L 4.60-6.20 HGB 14.1 g/dL 13.5-17.9 HCT 43.4 41.0-54.0 MCV 96.7 fL 80.0-100.0 MCH 31.4 pg 27.0-33.0 MCHC 32.5 g/dL 32.0-37.5 PLT 317 150-400 MPV 10.0 fL 9.1-13.0 RDW 13.9 11.5-14.5 Jul 04, 2024 07:17 AM [facility] BASIC METABOLIC PANEL+MG Specimen Type: PLASMA No comment entered. Ordering Provider: GABINO CAMERON Report Released Date/Time: Jul 03, 2024 06:31 PM Reporting Lab: [facility] [address] Performing Lab: [facility] [address] CREATININE 0.7 mg/dL 0.7-1.2 UREA NITROGEN 16 mg/dL 8-26 GLUCOSE 129 mg/dL H 70-100 SODIUM 137 mmol/L 136-145 POTASSIUM 3.7 mmol/L 3.5-5.1 CHLORIDE 107 mmol/L 98-107 CO2 22 mmol/L 22-29 CALCIUM 9.0 mg/dL 8.4-10.2 MAGNESIUM 1.9 mg/dL 1.6-2.6 ANION GAP 8 mmol/L 5-15 .CREAT EGFR(CKD-EPI) >90 >60 Jul 04, 2024 07:17 AM [facility] PHOSPHORUS Specimen Type: PLASMA No comment entered. Ordering Provider: GABINO CAMERON Report Released Date/Time: Jul 03, 2024 06:31 PM Reporting Lab: [facility] [address] Performing Lab: [facility] [address] PHOSPHORUS 2.8 mg/dL 2.3-4.3 Jul 04, 2024 07:16 AM [facility] CBC Specimen Type: BLOOD No comment entered. Ordering Provider: GABINO CAMERON Report Released Date/Time: Jul 03, 2024 06:31 PM Reporting Lab: [facility] [address] Performing Lab: [facility] [address] WBC 20.6 H 4.0-11.0 RBC 4.63 4.60-6.20 HGB 14.2 g/dL 13.5-17.9 HCT 43.4 41.0-54.0 MCV 93.7 fL 80.0-100.0 MCH 30.7 pg 27.0-33.0 MCHC 32.7 g/dL 32.0-37.5 PLT 329 150-400 MPV 10.4 fL 9.1-13.0 RDW 13.8 11.5-14.5 Jul 04, 2024 07:16 AM [facility] CBC & DIFF Specimen Type: BLOOD Comment: Manual Differential Performed Ordering Provider: GABINO CAMERON Report Released Date/Time: Jul 03, 2024 06:31 PM Reporting Lab: [facility] [address] Performing Lab: [facility] [address] WBC 20.6 H 4.0-11.0 RBC 4.63 4.60-6.20 [...] MORPHOLOGY PRESENT Jul 04, 2024 07:15 AM [facility] BNP Specimen Type: PLASMA No comment entered. Ordering Provider: GABINO CAMERON Report Released Date/Time: Jul 03, 2024 06:31 PM Reporting Lab: [facility] [id number] Performing Lab: [facility] [address] BNP 292 pg/mL H <99 Jul 03, 2024 10:32 PM [facility] FINGERSTICK GLUCOSE Specimen Type: BLOOD Comment: Save Result Nurse Notified Ordering Provider: KATELYNN PERSON Report Released Date/Time: Jul 03, 2024 10:50 PM Reporting Lab: [facility] [address] Performing Lab: [facility] [address] FINGERSTICK GLUCOSE 126 mg/dL H 70-100 Jul 03, 2024 05:33 PM [facility] FINGERSTICK GLUCOSE Specimen Type: BLOOD Comment: Save Result Nurse Notified Ordering Provider: KATELYNN PERSON Report Released Date/Time: Jul 03, 2024 05:46 PM Reporting Lab: [facility] [id number] Performing Lab: [facility] [address] FINGERSTICK GLUCOSE 141 mg/dL H 70-100 Jul 03, 2024 02:31 PM [facility] POC ABG/ELECTROLYTES Specimen Type: ARTERIAL BLOOD Comment: FIO2 = 97% Patient Temp: 36.0 C Sample Type = ARTERIAL Ordering Provider: MAZIN ARREDONDO Report Released Date/Time: Jul 03, 2024 01:48 PM Reporting Lab: [facility] [address] Performing Lab: [facility] [address] POC PH 7.387 7.35-7.45 POC PCO2 34.4 [...] H 80.0-105.0 Jul 03, 2024 01:05 PM [facility] POC ABG/ELECTROLYTES Specimen Type: ARTERIAL BLOOD Comment: FIO2 = 53% Patient Temp: 36.2 C Sample Type = ARTERIAL Ordering Provider: MAZIN ARREDONDO Report Released Date/Time: Jul 03, 2024 01:48 PM Reporting Lab: [facility] [address] Performing Lab: [facility] [address] POC PH 7.280 L 7.35-7.45 POC PCO2 [...] mm[Hg] 80.0-105.0 Jul 03, 2024 06:15 AM [facility] URINALYSIS Specimen Type: URINE No comment entered. Ordering Provider: MARYBETH POWELL Report Released Date/Time: Jun 12, 2024 04:01 PM Reporting Lab: [facility] [address] Performing Lab: [facility] [address] URINE COLOR YELLOW SPECIFIC GRAVITY 1.031 1.003-1.03 [...] 250 NEGATIVE Jul 03, 2024 06:13 AM [facility] CBC Specimen Type: BLOOD No comment entered. Ordering Provider: MARYBETH POWELL Report Released Date/Time: Jun 12, 2024 03:59 PM Reporting Lab: [facility] [address] Performing Lab: [facility] [address] WBC 15.8 H 4.0-11.0 RBC 5.11 4.60-6.20 HGB 16.1 g/dL 13.5-17.9 HCT 49.1 41.0-54.0 MCV 96.1 fL 80.0-100.0 MCH 31.5 pg 27.0-33.0 MCHC 32.8 g/dL 32.0-37.5 PLT 357 150-400 MPV 9.8 fL 9.1-13.0 RDW 13.7 11.5-14.5 Jun 24, 2024 09:50 AM [facility] BASIC METABOLIC PANEL+MG Specimen Type: PLASMA Comment: Specimen received in Lab at: [id number] Ordering Provider: JEVON ZAZUETA Report Released Date/Time: Jun 23, 2024 06:07 PM Reporting Lab: [facility] [phone] Performing Lab: [facility] [address] CREATININE 0.8 mg/dL 0.7-1.2 UREA NITROGEN 13 mg/dL 8-26 GLUCOSE 135 mg/dL H 70-100 SODIUM 135 mmol/L L 136-145 POTASSIUM 3.6 mmol/L 3.5-5.1 CHLORIDE 103 mmol/L 98-107 CO2 24 mmol/L 22-29 CALCIUM 9.2 mg/dL 8.4-10.2 MAGNESIUM 1.9 mg/dL 1.6-2.6 ANION GAP 8 mmol/L 5-15 .CREAT EGFR(CKD-EPI) >90 >60 Jun 24, 2024 09:50 AM [facility] CBC Specimen Type: BLOOD Comment: Specimen received in Lab at: [id number] Ordering Provider: JEVON ZAZUETA Report Released Date/Time: Jun 23, 2024 06:07 PM Reporting Lab: [facility] [address] Performing Lab: [facility] [address] WBC 15.5 H 4.0-11.0 RBC 4.93 4.60-6.20 HGB 15.2 g/dL 13.5-17.9 HCT 46.5 41.0-54.0 MCV 94.3 fL 80.0-100.0 MCH 30.8 pg 27.0-33.0 MCHC 32.7 g/dL 32.0-37.5 PLT 223 150-400 MPV 11.4 fL 9.1-13.0 RDW 13.9 11.5-14.5 Jun 23, 2024 07:52 AM [facility] COMPREHENSIVE METABOLIC PANEL+MG Specimen Type: PLASMA No comment entered. Ordering Provider: JEVON ZAZUETA Report Released Date/Time: Jun 22, 2024 05:51 PM Reporting Lab: [facility] [address] Performing Lab: [facility] [address] CREATININE 0.7 mg/dL 0.7-1.2 UREA NITROGEN 16 [...] >90 >60 Jun 23, 2024 07:52 AM [facility] CBC & DIFF Specimen Type: BLOOD Comment: Automated Differential Performed Ordering Provider: JEVON ZAZUETA Report Released Date/Time: Jun 22, 2024 05:51 PM Reporting Lab: [facility] [address] Performing Lab: [facility] [address] WBC 14.9 H 4.0-11.0 RBC 5.09 4.60-6.20 [...] 0.1 0.0-0.1 Jun 22, 2024 06:10 PM [facility] COMPREHENSIVE METABOLIC PANEL+MG Specimen Type: PLASMA No comment entered. Ordering Provider: JEVON ZAZUETA Report Released Date/Time: Jun 22, 2024 05:51 PM Reporting Lab: [facility] [address] Performing Lab: [facility] [address] CREATININE 0.7 mg/dL 0.7-1.2 UREA NITROGEN 17 [...] >90 >60 Jun 22, 2024 06:10 PM [facility] CBC Specimen Type: BLOOD No comment entered. Ordering Provider: JEVON ZAZUETA Report Released Date/Time: Jun 22, 2024 05:51 PM Reporting Lab: [facility] [address] Performing Lab: [facility] [address] WBC 16.9 H 4.0-11.0 RBC 5.28 4.60-6.20 HGB 16.9 g/dL 13.5-17.9 HCT 50.4 41.0-54.0 MCV 95.5 fL 80.0-100.0 MCH 32.0 pg 27.0-33.0 MCHC 33.5 g/dL 32.0-37.5 PLT 223 150-400 MPV 10.9 fL 9.1-13.0 RDW 14.0 11.5-14.5 Vital Signs: All taken on the encounter date This section contains inpatient and outpatient Vital Signs collected on the date of the Encounter. Date/Time Temperature Pulse Blood Pressure Respiratory Rate SP02 Pain Height Weight Body Mass Index Source Jul 21, 2024 06:57 AM 7 [facility] Jul 21, 2024 02:25 AM 3 [facility] Jul 21, 2024 12:10 AM 7 [facility] Social History: Smoking [...] 15, 2024 08:30 AM VA-TOBACCO FORMER USER [facility] Tobacco Use History This section includes a history of the smoking, or tobacco-related health factors, that were collected on or before the date of the Encounter. The data comes from the [place] facility where the Encounter took place. Date/Time Smoking Status/Tobacco Use Comment F acility May 15, 2024 08:30 AM VA-TOBACCO QUIT 15 YRS OR MORE [facility] May 06, 2023 11:30 AM VA-TOBACCO FORMER USER [facility] May 06, 2023 11:30 AM VA-TOBACCO QUIT 15 YRS OR MORE [facility] Jun 04, 2022 09:00 AM VA-TOBACCO FORMER USER [facility] Jun 04, 2022 09:00 AM VA-TOBACCO QUIT 15 YRS OR MORE [facility] Jul 10, 2021 08:00 AM VA-TOBACCO FORMER USER [facility] Jul 10, 2021 08:00 AM VA-TOBACCO QUIT 5 TO < 15 YRS [facility] May 23, 2020 08:30 AM VA-TOBACCO FORMER USER [facility] May 23, 2020 08:30 AM VA-TOBACCO QUIT 5 TO < 15 YRS [facility] Mar 20, 2019 04:03 PM VA-TOBACCO FORMER USER [facility] Mar 20, 2019 04:03 PM VA-TOBACCO QUIT 5 TO < 15 YRS [facility] Mar 21, 2018 08:13 AM FORMER TOBACCO USER 7Y OR GREATE R [facility] Feb 24, 2017 09:24 AM FORMER TOBACCO USER 7Y OR GREATE R [facility] January 07, 2016 08:01 AM FORMER TOBACCO USE >1Y <7Y [facility] Feb 03, 2015 07:58 AM FORMER TOBACCO USE <1Y [facility] Feb 26, 2014 08:41 AM CURRENT TOBACCO USER [facility] May 13, 2011 01:45 PM CURRENT TOBACCO USER [facility] Advance Directives: All historical and current [...] 06:15 PM CHEST 1 VIEW: FLACA WEAVER [id number] -1950 M Exm Date: JUL 18, 2024@18:15 Req Phys: LEISA GOLDEN Pat Loc: 3E07-18-2024@19:00 Img Loc: MAIN X-RAY Service: [place] [address] (Case [id number] COMPLETE) CHEST 1 VIEW (RAD Detailed) CPT:05648 Proc Modifiers : PORTABLE EXAM Reason for Study: SOB Clinical History: [place] IS NOT under investigation for COVID-19 or is COVID-19 negative 73 yo with SOB Responsible provider name and phone number to notify for critical findings if other than user placing the order and pager listed below: User placing orders pager: [phone] LAST CREATININE 1.2 (07/17/24) Report Status: Verified Date Reported: JUL 18, 2024 Date Verified: JUL 18, 2024 Transport Tech E-Sig:/ES/CARLOS A CUNNINGHAM DO Report: EXAMINATION: CHEST 1 VIEW Reason for Study: SOB IS NOT under investigation for COVID-19 or is COVID-19 negative 73 yo with SOB Responsible provider name and phone number to notify for critical findings if other than user placing the order and pager listed below: User placing orders pager: [phone] LAST CREATININE 1.2 (07/17/24) SOB TECHNIQUE: Single [...] Interpreting Staff: CARLOS A CUNNINGHAM DO, RADIOLOGIST (Transport Tech) /KMB CARLOS A CUNNINGHAM [facility] Jul 16, 2024 07:49 AM [facility] CT ABDOMEN/PELVIS: FLACA WEAVER [id number] -1950 Exm Date: JUL 16, 2024@07:49 Req Phys: ELIJATINDER L [facility] Loc: 07-17-2024@09:02 Img Loc: OUTSOURCE CT Service: Unknown (Case [id number] COMPLETE) NON [place] CT ABDOMEN/PELVIS (CT Detailed) CPT:72799 Reason for Study: outside study Clinical History: [...] Diagnostic Code: VERIFIED BY: / *ELECTRONICALLY FILED* [facility] Jul 13, 2024 09:[address] [place] [address] ABDOMEN/PELVIS: FLACA WEAVER [id number] -1950 M Exm Date: JUL 13, 2024@09:41 Req Phys: JATINDER CABRERA Loc: 3ES07-17-2024@09:08 Img Loc: OUTSOURCE CT Service: Unknown (Case [id number] COMPLETE) NON [place] CT ABDOMEN/PELVIS (CT Detailed) CPT:69179 Reason for Study: outside study Clinical History: [...] Diagnostic Code: VERIFIED BY: / *ELECTRONICALLY FILED* [facility] Jul 08, 2024 10:09 AM CHEST 2 VIEWS PA AND LAT: FLACA WEAVER [id number] -1950 M Exm Date: JUL 08, 2024@10:09 Req Phys: KATELYNN PERSON Loc: 2KG07-08-2024@11:49 Im Loc: MAIN X-RAY Service: [place] [address] (Case 24 COMPLETE) CHEST 2 VIEWS PA AND LAT (RAD Detailed) CPT:06564 Reason for Study: Uptrending WBC, POD 5 Clinical History: [place] IS NOT under investigation for COVID-19 or is COVID-19 negative POD 5, work up for uptrending wbc Responsible provider name and phone number to notify for critical findings if other than user placing the order and pager listed below: User placing orders pager: Katelynn Person LAST CREATININE 0.9 (07/07/24) Report Status: Verified Date Reported: JUL 08, 2024 Date Verified: JUL 08, 2024 Transport Tech E-Sig: Report: CHEST 2 VIEWS PA AND [...] cardiopulmonary disease. READING PHYSICIAN: Sarbjit Vaughn M.D. -[phone] 07/08/2024 12:46 EST [facility] National Teleradiology Program [phone] (For Medical Practitioner Use Only) Attention Patients / Veterans: If you have questions or concerns about these test results, please contact your ordering provider or primary care team. Primary Interpreting Staff: RADIOLOGY,OUTSIDE SERVICE, Staff Physician / RADIOLOGY,OUTSIDE SERVICE [facility] Jul 08, 2024 10:[address] (AP) ABDOMEN/PELVIS W CONTRAST: MEGFLACA YAMIL [id number] -1950 M Exm Date: JUL 08, 2024@10:00 Req Phys: KATELYNN PERSON [facility] Loc: 2KG/07-08-2024@12:07 Img Loc: CT IMAGING Service: [place] [address] (Case 22 COMPLETE) CT (AP) ABDOMEN/PELVIS W CONTRAST(CT Detailed) CPT:02862 Contrast Media : Non-ionic Iodinated Reason for [...] PLASMA .CREAT EGFR(CKD-E >90 Ref: >=60 Allergies: ([place] only) TERAZOSIN (Mar 13, 2015) Report Status: Verified Date Reported: JUL 08, 2024 Date Verified: JUL 08, 2024 Transport Tech E-Sig: Report: CT (AP) ABDOMEN/PELVIS W CONTRAST [...] as noted above READING PHYSICIAN: Celestino Blanc -[phone] 07/08/2024 13:04 EST [facility] Interglossradiology Program [phone] (For Medical Practitioner Use Only) Attention Patients / Veterans: If you have questions or concerns about these test results, please contact your ordering provider or primary care team. Primary Interpreting Staff: RADIOLOGY,OUTSIDE SERVICE, Staff Physician / RADIOLOGY,OUTSIDE SERVICE [facility] Jun 22, 2024 11:49 AM ABSCESS DRAIN PLACEMENT PERITONEAL (P): FLACA WEAVER [id number] -1950 M Exm Date: JUN 22, 2024@11:49 Req Phys: ANGELA HOLDEN Pat Loc: [facility]/06-22-2024@17:14 Img Loc: INTERVENTIONAL RADIOLOGY Service: [place] [address] (Case [id number] COMPLETE) IR PERITONEAL/RETROPERITONEAL PER(ANI Detailed) CPT:54191 Reason for Study: diverticulitis with abscess (Case 3570 COMPLETE) IR MOD SEDATION 10-22 MIN (ANI Detailed) CPT:13357 Clinical History: [place] IS NOT under investigation for COVID-19 or is COVID-19 negative 73 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 please place abscess drain. Contact number for responsible provider who can be reached for any questions or notifications of critical findings: [phone] n/a LAST CREATININE 0.9 (06/21/24) Report Status: Verified Date Reported: JUN 22, 2024 Date Verified: JUN 22, 2024 Transport Tech E-Sig:/ES/LISA PENDLETON MD Report: PROCEDURES: Placement of [...] anesthesia. Using real-time CT fluoroscopy, a 5 Qatari Rival IQesis catheter was advanced into the collection in the left pelvis. A wire was coiled in the collection. The tract into the collection was dilated to accommodate the 12 Qatari locking pigtail drainage catheter. There was return [...] Primary Interpreting Staff: LISA PENDLETON MD, RADIOLOGIST (Transport Tech) /LISA CARDONA [facility] Jun 22, 2024 11:[address] NEEDLE PLACEMENT (P): FLACA WEAVER [id number] -1950 M Exm Date: JUN 22, 2024@11:48 Req Phys: ANGELA HOLDEN Loc: [facility]/06-22-2024@17:14 Img Loc: CT IMAGING Service: [place] [address] (Case [id number] COMPLETE) CT SCAN FOR NEEDLE PLACEMENT (CT Detailed) CPT:37354 Reason for Study: l pelvic abscess drain Clinical History: Report Status: Verified Date Reported: JUN 22, 2024 Date Verified: JUN 22, 2024 Transport Tech E-Sig:/ES/LISA PENDLETON MD Report: PROCEDURES: Placement of [...] anesthesia. Using real-time CT fluoroscopy, a 5 Qatari Rival IQesis catheter was advanced into the collection in the left pelvis. A wire was coiled in the collection. The tract into the collection was dilated to accommodate the 12 Qatari locking pigtail drainage catheter. There was return [...] Primary Interpreting Staff: LISA PENDLETON MD, RADIOLOGIST (Transport Tech) /JRT LISA PENDLETON [facility] Jun 21, 2024 06:[address] (AP) ABDOMEN/PELVIS (P): FLACA WEAVER [id number] -1950 M Exm Date: JUN 21, 2024@18:09 Req Phys: DELIA MARTINEZ Loc: [facility] EMERGENCY DEPT WALK-IN (Re Img Loc: CT IMAGING Service: [place] [address] (Case [id number] COMPLETE) CT (AP) ABDOMEN/PELVIS W CONTRAST(CT Detailed) CPT:13364 Contrast Media : Non-ionic Iodinated Reason for [...] PLASMA .CREAT EGFR(CKD-E >90 Ref: >=60 Allergies: ([place] only) TERAZOSIN (Mar 13, 2015) Defer to [...] 21, 2024 Date Verified: JUN 21, 2024 Transport Tech E-Sig:/ALEXI/CARLOS A CUNNINGHAM DO Report: EXAMINATION: CT [...] Interpreting Staff: CARLOS A CUNNINGHAM DO, RADIOLOGIST (Transport Tech) /CARLOS A ROWELL [facility] Pathology Reports: +/- 30 days of [...] PM LR MICROBIOLOGY RE PORT: Reporting Lab: [facility] [CLIA# [id number]] [place] [address] Accession [UID]: [id number] [[id number]] Received: Jul 16, 2024@14:41 Collection sample: BLOOD Collection date: Jul 16, 2024 14:07 Provider: LEISA GOLDEN Comment on specimen: R AC, RECEIVED 2 BLOOD CULTURE BOTTLES Test(s) ordered: CULTURE & SUSCEPTIBILITY...... completed: Jul 22, 2024 * BACTERIOLOGY FINAL REPORT => Jul 22, 2024 13:39 TECH CODE: [id number] CULTURE RESULTS: NO GROWTH 5 DAYS Bacteriology Remark(s): THIS REPORT IS FINAL =--=--=--=--=--=--=--=--=--= --=--=--=--=--=--=--=--=--=- -=--=--=--=--=--=--=-- Performing Laboratory: Bacteriology Report Performed By: [facility] [CLIA# [id number]] [place] [address] [facility] Jul 16, 2024 01:54 PM LR MICROBIOLOGY RE PORT: Reporting Lab: [facility] [CLIA# [id number]] [place] [address] Accession [UID]: [id number] [[id number]] Received: Jul 16, 2024@14:41 Collection sample: BLOOD Collection date: Jul 16, 2024 13:54 Provider: LEISA GOLDEN Comment on specimen: L AC, RECEIVED 2 BLOOD CULTURE BOTTLES Test(s) ordered: CULTURE & SUSCEPTIBILITY...... completed: Jul 22, 2024 * BACTERIOLOGY FINAL REPORT => Jul 22, 2024 13:39 TECH CODE: [id number] CULTURE RESULTS: NO GROWTH 5 DAYS Bacteriology Remark(s): THIS REPORT IS FINAL =--=--=--=--=--=--=--=--=--= --=--=--=--=--=--=--=--=--=- -=--=--=--=--=--=--=-- Performing Laboratory: Bacteriology Report Performed By: [facility] [CLIA# [id number]] [place] [address] [facility] Jul 03, 2024 05:59 AM LR SURGICAL PATHOL OGY REPORT: LOCAL TITLE: LR SURGICAL PATHOLOGY REPORT STANDARD TITLE: PATHOLOGY REPORT DATE OF NOTE: JUL 06, 2024@10:40:48 ENTRY DATE: JUL 06, 2024@10:40:48 AUTHOR: EDUARDO PALOMARES COSIGNER: URGENCY: STATUS: COMPLETED $APHDR Reporting Lab: [facility] [CLIA# [id number]] [place] [address] - - - - - - - [...] - PATHOLOGY REPORT Accession No. [id number] - - - - - - - [...] - PATHOLOGY REPORT Accession No. [id number] - - - - - - - [...] Second circumferential surgical margin, en face; E-F: Wool Hat Hydraulicker diverticula; G: Wool Hat Hydraulicker section of mesentery; H: Random dealer compliance representative section of additional adipose tissue [...] One colonic tissue ring, bisected transversely. [facility] MICROSCOPIC DESCRIPTION: Microscopic examination performed. DIAGNOSIS: 1. Colon, sigmoid, sigmoidectomy-- - Diverticulosis with perforation and focal abscess formation 2. Colon, anastomotic rings, excision-- - Viable colonic mucosa without diagnostic abnormality /alexi/ EDUARDO PALOMARES MD STAFF PATHOLOGIST Signed Jul 06, 2024@10:40 Performing Laboratory: Surgical Pathology Report Performed By: [facility] [CLIA# [id number]] [place] [address] $FTR - - - - - - [...] - - FLACA WEAVER STANDARD FORM 515 ID:[id number] SEX:M :1950 AGE: 73 LOC:83574 ADM:Jun DX:DIVERTICULITIS PCP: Jatinder Cabrera /alexi/ EDUARDO PALOMARES MD STAFF PATHOLOGIST Signed: 07/06/2024 10:40 EDUARDO PALOMARES [facility] Jun 22, 2024 01:15 PM LR MICROBIOLOGY RE PORT: Reporting Lab: [facility] [CLIA# [id number]] [place] [address] Accession [UID]: [id number] [[id number]] Received: Jun 22, 2024@13:38 Collection sample: FLUID Collection date: Jun 22, 2024 13:15 Provider: ANGELA HOLDEN Comment on specimen: LLQ ABSCESS, RECEIVED IN ANAEROBIC TRANSPORT VIAL Test(s) ordered: GRAM STAIN.................... completed: Jun 22, 2024 15:03 CULTURE & SUSCEPTIBILITY...... completed: Jun 25, 2024 * BACTERIOLOGY FINAL REPORT => Jun 25, 2024 10:56 TECH CODE: [id number] GRAM STAIN: DIRECT SMEAR of specimen before [...] -=--=--=--=--=--=--=-- Performing Laboratory: Bacteriology Report Performed By: [facility] [CLIA# [id number]] [place] [address] [facility] Jun 22, 2024 01:15 PM LR MICROBIOLOGY RE PORT: Reporting Lab: [facility] [CLIA# [id number]] [place] [address] Accession [UID]: [id number] [[id number]] Received: Jun 22, 2024@13:38 Collection sample: FLUID Collection date: Jun 22, 2024 13:15 Provider: ANGELA HOLDEN Comment on specimen: LLQ ABSCESS, RECEIVED IN ANAEROBIC TRANSPORT VIAL Test(s) ordered: ANAEROBIC CULTURE............. completed: Jun 28, 2024 * BACTERIOLOGY FINAL REPORT => Jun 28, 2024 10:08 TECH CODE: [id number] CULTURE RESULTS: HEAVY GROWTH MIXED ANAEROBES Comment: including the followin+ Bacteroides fragilis 4+ Bacteroides vulgatus 4+ Clostridium innocuum Beta-lactamase negative 4+ Bacteroides caccae 4+ Parvimonas micra 4+ Bacteroides uniformis 4+ Gemella morbillorum 4+ anaerobic small, Gram Positive Rods 4+ Bacteroides thetaiotaomicron Standard workup is now complete. Bacteriology Remark(s): THIS REPORT IS FINAL =--=--=--=--=--=--=--=--=--= --=--=--=--=--=--=--=--=--=- -=--=--=--=--=--=--=-- Performing Laboratory: Bacteriology Report Performed By: [facility] [CLIA# [id number]] [place] [address] [facility] Jun 21, 2024 06:12 PM LR MICROBIOLOGY RE PORT: Reporting Lab: [facility] [CLIA# [id number]] [place] [address] Accession [UID]: [id number] [[id number]] Received: Jun 21, 2024@18:12 Collection sample: BLOOD [...] -=--=--=--=--=--=--=-- Performing Laboratory: Bacteriology Report Performed By: [facility] [CLIA# [id number]] [place] [address] [facility] Jun 21, 2024 06:11 PM LR MICROBIOLOGY RE PORT: Reporting Lab: [facility] [CLIA# [id number]] [place] [address] Accession [UID]: [id number] [[id number]] Received: Jun 21, 2024@18:11 Collection sample: BLOOD [...] -=--=--=--=--=--=--=-- Performing Laboratory: Bacteriology Report Performed By: [facility] [IA# [id number]] [place] [address] [facility]
--- OUTSIDE RECORDS SUMMARY | 2024-08-01 07:50 | XMS_ITS ---
[place] DAILY HOSPITALIZATION DATA [facility]CS Encounter Summary Created on: August 01, 2024 MEG FLACADARCI LOBO : 1950 Sex: Male Author Name [facility] Address [address] [place] [address] Care Team Providers Care Closing Manager Name Role Phone JATINDER CABRERA Primary [...] PART A Sep 29, 2016 PART A [id number] [phone] JUDY WEAVER PATIENT Selected Encounter This section includes the information on record at [place] for the Encounter. Date/Time Encounter Type Encounter Description Reason Pro vider Source Jul 21, 2024 12:58 PM Inpatient Visit DAILY HOSPITALIZATION DATA IHE [...] - LAB BLOOD WC [facility] Jul 16, 2024 12:00 AM [...] Range Comment Jul 21, 2024 10:38 AM [facility] BASIC METABOLIC PANEL+MG Specimen Type: PLASMA No comment entered. Ordering Provider: SARAI GOLDEN Report Released Date/Time: Jul 20, 2024 06:50 PM Reporting Lab: [facility] [address] Performing Lab: [facility] [address] CREATININE 0.8 mg/dL 0.7-1.2 UREA NITROGEN 31 mg/dL H 8-26 GLUCOSE 120 mg/dL H 70-100 SODIUM 125 mmol/L L 136-145 POTASSIUM 4.4 mmol/L 3.5-5.1 CHLORIDE 100 mmol/L 98-107 CO2 17 mmol/L L 22-29 CALCIUM 9.6 mg/dL 8.4-10.2 MAGNESIUM 1.9 mg/dL 1.6-2.6 ANION GAP 8 mmol/L 5-15 .CREAT EGFR(CKD-EPI) >90 >60 Jul 21, 2024 10:38 AM [facility] CBC Specimen Type: BLOOD No comment entered. Ordering Provider: SARAI GOLDEN Report Released Date/Time: Jul 20, 2024 06:50 PM Reporting Lab: [facility] [address] Performing Lab: [facility] [address] WBC 16.0 H 4.0-11.0 RBC 5.16 4.60-6.20 HGB 15.8 g/dL 13.5-17.9 HCT 45.5 41.0-54.0 MCV 88.2 fL 80.0-100.0 MCH 30.6 pg 27.0-33.0 MCHC 34.7 g/dL 32.0-37.5 PLT 428 H 150-400 MPV 10.8 fL 9.1-13.0 RDW 13.6 11.5-14.5 Jul 20, 2024 01:00 PM [facility] SODIUM,URINE RANDOM Specimen Type: URINE No comment entered. Ordering Provider: SARAI GOLDEN Report Released Date/Time: Jul 20, 2024 08:22 AM Reporting Lab: [facility] [address] Performing Lab: [facility] [address] SODIUM,URINE RANDOM <20 mmol/L Jul 20, 2024 01:00 PM [facility] OSMOLALITY,URINE Specimen Type: URINE No comment entered. Ordering Provider: SARAI GOLDEN Report Released Date/Time: Jul 20, 2024 08:22 AM Reporting Lab: [facility] [address] Performing Lab: [facility] [address] OSMOLALITY,URIN E 648 mosm/kg 500-800 Jul 20, 2024 06:45 AM [facility] BASIC METABOLIC PANEL+MG Specimen Type: PLASMA No comment entered. Ordering Provider: SARAI GOLDEN Report Released Date/Time: Jul 19, 2024 06:13 PM Reporting Lab: [facility] [address] Performing Lab: [facility] [address] CREATININE 0.8 mg/dL 0.7-1.2 UREA NITROGEN 36 mg/dL H 8-26 GLUCOSE 111 mg/dL H 70-100 SODIUM 121 mmol/L L 136-145 POTASSIUM 4.1 mmol/L 3.5-5.1 CHLORIDE 99 mmol/L 98-107 CO2 14 mmol/L L 22-29 CALCIUM 9.5 mg/dL 8.4-10.2 MAGNESIUM 1.8 mg/dL 1.6-2.6 ANION GAP 8 mmol/L 5-15 .CREAT EGFR(CKD-EPI) >90 >60 Jul 20, 2024 06:43 AM [facility] CBC & DIFF Specimen Type: BLOOD Comment: Automated Differential Performed Ordering Provider: SARAI GOLDEN Report Released Date/Time: Jul 19, 2024 06:13 PM Reporting Lab: [facility] [address] Performing Lab: [facility] [address] WBC 16.6 H 4.0-11.0 RBC 4.96 4.60-6.20 [...] H 0.0-0.1 Jul 20, 2024 05:30 AM [facility] OSMOLALITY,SERUM Specimen Type: SERUM No comment entered. Ordering Provider: SARAI GOLDEN Report Released Date/Time: Jul 20, 2024 09:47 AM Reporting Lab: [facility] [address] Performing Lab: [facility] [address] OSMOLALITY,SERU M 266 mosm/kg L 276-305 Jul 19, 2024 08:57 AM [facility] BASIC METABOLIC PANEL+MG Specimen Type: PLASMA No comment entered. Ordering Provider: SARAI GOLDEN Report Released Date/Time: Jul 18, 2024 10:24 PM Reporting Lab: [facility] [address] Performing Lab: [facility] [address] CREATININE 1.0 mg/dL 0.7-1.2 UREA NITROGEN 40 mg/dL H 8-26 GLUCOSE 104 mg/dL H 70-100 SODIUM 129 mmol/L L 136-145 POTASSIUM 3.3 mmol/L L 3.5-5.1 CHLORIDE 104 mmol/L 98-107 CO2 16 mmol/L L 22-29 CALCIUM 8.0 mg/dL L 8.4-10.2 MAGNESIUM 1.7 mg/dL 1.6-2.6 ANION GAP 9 mmol/L 5-15 .CREAT EGFR(CKD-EPI) 80 >60 Jul 19, 2024 08:57 AM [facility] CBC Specimen Type: BLOOD No comment entered. Ordering Provider: SARAI GOLDEN Report Released Date/Time: Jul 18, 2024 10:24 PM Reporting Lab: [facility] [address] Performing Lab: [facility] [address] WBC 17.3 H 4.0-11.0 RBC 4.83 4.60-6.20 HGB 14.8 g/dL 13.5-17.9 HCT 42.6 41.0-54.0 MCV 88.2 fL 80.0-100.0 MCH 30.6 pg 27.0-33.0 MCHC 34.7 g/dL 32.0-37.5 PLT 456 H 150-400 MPV 10.8 fL 9.1-13.0 RDW 13.7 11.5-14.5 Jul 17, 2024 06:55 PM [facility] PHOSPHORUS Specimen Type: PLASMA No comment entered. Ordering Provider: SARAI GOLDEN Report Released Date/Time: Jul 17, 2024 01:54 PM Reporting Lab: [facility] [address] Performing Lab: [facility] [address] PHOSPHORUS 2.9 mg/dL 2.3-4.3 Jul 17, 2024 06:55 PM [facility] BASIC METABOLIC PANEL+MG Specimen Type: PLASMA No comment entered. Ordering Provider: SARAI GOLDEN Report Released Date/Time: Jul 17, 2024 01:54 PM Reporting Lab: [facility] [address] Performing Lab: [facility] [address] CREATININE 1.2 mg/dL 0.7-1.2 UREA NITROGEN 62 mg/dL H 8-26 GLUCOSE 116 mg/dL H 70-100 SODIUM 128 mmol/L L 136-145 POTASSIUM 3.8 mmol/L 3.5-5.1 CHLORIDE 100 mmol/L 98-107 CO2 16 mmol/L L 22-29 CALCIUM 9.3 mg/dL 8.4-10.2 MAGNESIUM 2.1 mg/dL 1.6-2.6 ANION GAP 12 mmol/L 5-15 .CREAT EGFR(CKD-EPI) 64 >60 Jul 17, 2024 07:00 AM [facility] CBC & DIFF Specimen Type: BLOOD Comment: Manual Differential Performed Ordering Provider: SARAI GOLDEN Report Released Date/Time: Jul 16, 2024 04:52 PM Reporting Lab: [facility] [address] Performing Lab: [facility] [address] WBC 18.9 H 4.0-11.0 RBC 5.55 4.60-6.20 [...] MORPHOLOGY PRESENT Jul 17, 2024 07:00 AM [facility] ALBUMIN Specimen Type: PLASMA No comment entered. Ordering Provider: SARAI GOLDEN Report Released Date/Time: Jul 16, 2024 12:12 PM Reporting Lab: [facility] [address] Performing Lab: [facility] [address] ALBUMIN 4.3 g/dL 3.5-5.0 Jul 17, 2024 07:00 AM [facility] COMPREHENSIVE METABOLIC PANEL+MG Specimen Type: PLASMA No comment entered. Ordering Provider: SARAI GOLDEN Report Released Date/Time: Jul 16, 2024 04:52 PM Reporting Lab: [facility] [address] Performing Lab: [facility] [address] CREATININE 1.3 mg/dL H 0.7-1.2 UREA NITROGEN [...] L >60 Jul 16, 2024 07:10 PM [facility] LACTIC ACID Specimen Type: PLASMA No comment entered. Ordering Provider: SARAI GOLDEN Report Released Date/Time: Jul 16, 2024 12:12 PM Reporting Lab: [facility] [address] Performing Lab: [facility] [address] LACTIC ACID 0.9 mmol/L 0.5-2.2 Jul 16, 2024 02:14 PM [facility] MRSA SURVL NARES DNA Specimen Type: NARES No comment entered. Ordering Provider: SARAI GOLDEN Report Released Date/Time: Jul 16, 2024 12:12 PM Reporting Lab: [facility] [address] Performing Lab: [facility] [address] MRSA SURVL NARES DNA NEGATIVE Negative Jul 16, 2024 02:10 PM [facility] LACTIC ACID Specimen Type: PLASMA No comment entered. Ordering Provider: SARAI GOLDEN Report Released Date/Time: Jul 16, 2024 12:12 PM Reporting Lab: [facility] [address] Performing Lab: [facility] [address] LACTIC ACID 0.9 mmol/L 0.5-2.2 Jul 16, 2024 02:08 PM [facility] COMPREHENSIVE METABOLIC PANEL+MG Specimen Type: PLASMA No comment entered. Ordering Provider: SARAI GOLDEN Report Released Date/Time: Jul 16, 2024 12:12 PM Reporting Lab: [facility] [address] Performing Lab: [facility] [address] CREATININE 2.0 mg/dL H 0.7-1.2 UREA NITROGEN [...] L >60 Jul 16, 2024 02:08 PM [facility] CBC & DIFF Specimen Type: BLOOD Comment: Manual Differential Performed Ordering Provider: SARAI GOLDEN Report Released Date/Time: Jul 16, 2024 12:12 PM Reporting Lab: [facility] [address] Performing Lab: [facility] [address] WBC 19.7 H 4.0-11.0 RBC 5.39 4.60-6.20 [...] MORPHOLOGY PRESENT Jul 10, 2024 07:16 AM [facility] PHOSPHORUS Specimen Type: PLASMA No comment entered. Ordering Provider: JUANCARLOS ECHOLS Report Released Date/Time: Jul 09, 2024 12:23 PM Reporting Lab: [facility] [address] Performing Lab: [facility] [address] PHOSPHORUS 3.0 mg/dL 2.3-4.3 Jul 10, 2024 07:16 AM [facility] BASIC METABOLIC PANEL+MG Specimen Type: PLASMA No comment entered. Ordering Provider: JUANCARLOS ECHOLS S Report Released Date/Time: Jul 09, 2024 12:23 PM Reporting Lab: [facility] [address] Performing Lab: [facility] [address] CREATININE 0.7 mg/dL 0.7-1.2 UREA NITROGEN 27 [...] 2024 12:23 PM Reporting Lab: [facility] [address] Performing Lab: [facility] [address] WBC 18.8 H 4.0-11.0 RBC 5.08 4.60-6.20 [...] 2024 06:18 PM Reporting Lab: [facility] [address] Performing Lab: [facility] [address] WBC 15.3 H 4.0-11.0 RBC 4.91 4.60-6.20 [...] 2024 08:41 AM Reporting Lab: [facility] [address] Performing Lab: [facility] [address] URINE COLOR YELLOW SPECIFIC GRAVITY >1.050 H [...] 2024 04:49 PM Reporting Lab: [facility] [address] Performing Lab: [facility] [address] WBC 17.5 H 4.0-11.0 RBC 4.88 4.60-6.20 [...] 2024 04:49 PM Reporting Lab: [facility] [address] Performing Lab: [facility] [address] PHOSPHORUS 2.6 mg/dL 2.3-4.3 Jul 08, 2024 09:54 AM [facility] BASIC METABOLIC PANEL+MG Specimen Type: PLASMA Comment: Specimen received in Lab at: [id number] Ordering Provider: JUANCARLOS ECHOLS Report Released Date/Time: Jul 07, 2024 04:49 PM Reporting Lab: [facility] [address] Performing Lab: [facility] [address] CREATININE 0.9 mg/dL 0.7-1.2 UREA NITROGEN 26 [...] 2024 12:26 PM Reporting Lab: [facility] [address] Performing Lab: [facility] [address] C DIFF TOX B GENE PCR NEGATIVE Negative Jul 07, 2024 07:41 AM [facility] PHOSPHORUS Specimen Type: PLASMA No comment entered. Ordering Provider: JEVON ZAZUETA Report Released Date/Time: Jul 06, 2024 03:44 PM Reporting Lab: [facility] [address] Performing Lab: [facility] [address] PHOSPHORUS 3.1 mg/dL 2.3-4.3 Jul 07, 2024 07:41 AM [facility] BASIC METABOLIC PANEL+MG Specimen Type: PLASMA No comment entered. Ordering Provider: JEVON ZAZUETA Report Released Date/Time: Jul 06, 2024 03:44 PM Reporting Lab: [facility] [address] Performing Lab: [facility] [address] CREATININE 0.9 mg/dL 0.7-1.2 UREA NITROGEN 20 [...] 2024 03:44 PM Reporting Lab: [facility] [address] Performing Lab: [facility] [address] WBC 21.2 H 4.0-11.0 RBC 5.09 4.60-6.20 [...] 2024 01:22 PM Reporting Lab: [facility] [address] Performing Lab: [facility] [address] WBC 18.0 H 4.0-11.0 RBC 4.83 4.60-6.20 [...] 2024 01:22 PM Reporting Lab: [facility] [address] Performing Lab: [facility] [address] PHOSPHORUS 3.6 mg/dL 2.3-4.3 Jul 06, 2024 07:21 AM [facility] BASIC METABOLIC PANEL+MG Specimen Type: PLASMA No comment entered. Ordering Provider: JEVON ZAZUETA Report Released Date/Time: Jul 05, 2024 01:22 PM Reporting Lab: [facility] [address] Performing Lab: [facility] [address] CREATININE 0.7 mg/dL 0.7-1.2 UREA NITROGEN 12 [...] 2024 09:39 AM Reporting Lab: [facility] [address] Performing Lab: [facility] [address] MAGNESIUM 2.0 mg/dL 1.6-2.6 Jul 05, 2024 07:17 AM [facility] PHOSPHORUS Specimen Type: PLASMA No comment entered. Ordering Provider: JUANCARLOS ECHOLS S Report Released Date/Time: Jul 04, 2024 09:39 AM Reporting Lab: [facility] [address] Performing Lab: [facility] [address] PHOSPHORUS 2.0 mg/dL L 2.3-4.3 Jul 05, 2024 07:17 AM [facility] BASIC METABOLIC PANEL+MG Specimen Type: PLASMA No comment entered. Ordering Provider: JUANCARLOS ECHOLS S Report Released Date/Time: Jul 04, 2024 09:39 AM Reporting Lab: [facility] [address] Performing Lab: [facility] [address] CREATININE 0.7 mg/dL 0.7-1.2 UREA NITROGEN 12 [...] 2024 09:39 AM Reporting Lab: [facility] [address] Performing Lab: [facility] [address] WBC 18.3 H 4.0-11.0 RBC 4.49 L [...] 2024 06:31 PM Reporting Lab: [facility] [address] Performing Lab: [facility] [address] CREATININE 0.7 mg/dL 0.7-1.2 UREA NITROGEN 16 [...] 2024 06:31 PM Reporting Lab: [facility] [address] Performing Lab: [facility] [address] PHOSPHORUS 2.8 mg/dL 2.3-4.3 Jul 04, 2024 07:16 AM [facility] CBC Specimen Type: BLOOD No comment entered. Ordering Provider: GABINO CAMERON Report Released Date/Time: Jul 03, 2024 06:31 PM Reporting Lab: [facility] [address] Performing Lab: [facility] [address] WBC 20.6 H 4.0-11.0 RBC 4.63 4.60-6.20 [...] 2024 06:31 PM Reporting Lab: [facility] [address] Performing Lab: [facility] [address] WBC 20.6 H 4.0-11.0 RBC 4.63 4.60-6.20 [...] 2024 06:31 PM Reporting Lab: [facility] [address] Performing Lab: [facility] [address] BNP 292 pg/mL H <99 Jul 03, 2024 10:32 PM [facility] FINGERSTICK GLUCOSE Specimen Type: BLOOD Comment: Save Result Nurse Notified Ordering Provider: KATELYNN PERSON Report Released Date/Time: Jul 03, 2024 10:50 PM Reporting Lab: [facility] [address] Performing Lab: [facility] [address] FINGERSTICK GLUCOSE 126 mg/dL H 70-100 Jul 03, 2024 05:33 PM [facility] FINGERSTICK GLUCOSE Specimen Type: BLOOD Comment: Save Result Nurse Notified Ordering Provider: KATELYNN PERSON Report Released Date/Time: Jul 03, 2024 05:46 PM Reporting Lab: [facility] [address] Performing Lab: [facility] [address] FINGERSTICK GLUCOSE 141 mg/dL H 70-100 Jul 03, 2024 02:31 PM [facility] POC ABG/ELECTROLYTES Specimen Type: ARTERIAL BLOOD Comment: FIO2 = 97% Patient Temp: 36.0 C Sample Type = ARTERIAL Ordering Provider: MAZIN ARREDONDO Report Released Date/Time: Jul 03, 2024 01:48 PM Reporting Lab: [facility] [address] Performing Lab: [facility] [address] POC PH 7.387 7.35-7.45 POC PCO2 34.4 [...] 2024 01:48 PM Reporting Lab: [facility] [address] Performing Lab: [facility] [address] POC PH 7.280 L 7.35-7.45 POC PCO2 [...] 2024 04:01 PM Reporting Lab: [facility] [address] Performing Lab: [facility] [address] URINE COLOR YELLOW SPECIFIC GRAVITY 1.031 1.003-1.03 [...] 2024 03:59 PM Reporting Lab: [facility] [address] Performing Lab: [facility] [address] WBC 15.8 H 4.0-11.0 RBC 5.11 4.60-6.20 [...] 2024 06:07 PM Reporting Lab: [facility] [address] Performing Lab: [facility] [address] CREATININE 0.8 mg/dL 0.7-1.2 UREA NITROGEN 13 [...] 2024 06:07 PM Reporting Lab: [facility] [address] Performing Lab: [facility] [address] WBC 15.5 H 4.0-11.0 RBC 4.93 4.60-6.20 [...] 2024 05:51 PM Reporting Lab: [facility] [address] Performing Lab: [facility] [address] CREATININE 0.7 mg/dL 0.7-1.2 UREA NITROGEN 16 [...] 2024 05:51 PM Reporting Lab: [facility] [address] Performing Lab: [facility] [address] WBC 14.9 H 4.0-11.0 RBC 5.09 4.60-6.20 [...] 2024 05:51 PM Reporting Lab: [facility] [address] Performing Lab: [facility] [address] WBC 16.9 H 4.0-11.0 RBC 5.28 4.60-6.20 [...] 2024 05:51 PM Reporting Lab: [facility] [address] Performing Lab: [facility] [address] CREATININE 0.7 mg/dL 0.7-1.2 UREA NITROGEN 17 [...] U/L H 11-34 .CREAT EGFR(CKD-EPI) >90 >60 Vital Signs: All taken on the encounter date This section contains inpatient and outpatient Vital Signs collected on the date of the Encounter. Date/Time Temperature Pulse Blood Pressure Respiratory Rate SP02 Pain Height Weight Body Mass Index Source Jul 21, 2024 06:57 AM 7 [facility] Jul 21, 2024 02:25 AM 3 [facility] Jul 21, 2024 12:10 AM 7 [facility] Social History: Smoking Status (Most [...] this document. The data comes from all [place] facilities. Date Advance Directives Provider Source Mar [...] 06:15 PM CHEST 1 VIEW: FLACA WEAVER [id number] -1950 M Exm Date: JUL 18, 2024@18:15 Req Phys: LEISA GOLDEN Pat Loc: 3E07-18-2024@19:00 Img Loc: MAIN X-RAY Service: PRIMARY [place] [address] (Case [id number] COMPLETE) CHEST 1 VIEW (RAD Detailed) CPT:37291 Proc Modifiers : PORTABLE EXAM Reason for Study: SOB Clinical History: Pollard IS NOT under investigation for COVID-19 or is COVID-19 negative 73 yo with SOB Responsible provider name and phone number to notify for critical findings if other than user placing the order and pager listed below: User placing orders pager: [phone] LAST CREATININE 1.2 (07/17/24) Report Status: Verified Date Reported: JUL 18, 2024 Date Verified: JUL 18, 2024 Chassis Inspector E-Sig:/ES/CARLOS A CUNNINGHAM DO Report: EXAMINATION: CHEST 1 VIEW Reason for Study: SOB IS NOT under investigation for COVID-19 or is COVID-19 negative 73 yo with SOB Responsible provider name and phone number to notify for critical findings if other than user placing the order and pager listed below: User placing orders pager: [phone] LAST CREATININE 1.2 (07/17/24) SOB TECHNIQUE: Single [...] Interpreting Staff: CARLOS A CUNNINGHAM DO, RADIOLOGIST (Chassis Inspector) /KMB CARLOS A CUNNINGHAM [facility] Jul 16, 2024 07:[address] [facility] [address] ABDOMEN/PELVIS: FLACA WEAVER [id number] -1950 Exm Date: JUL 16, 2024@07:49 Req Phys: ELIJATINDER L [facility] Loc: 07-17-2024@09:02 Img Loc: OUTSOURCE CT Service: Unknown (Case [id number] COMPLETE) NON [place] CT ABDOMEN/PELVIS (CT Detailed) CPT:23438 Reason for Study: outside study Clinical History: [...] VERIFIED BY: / *ELECTRONICALLY FILED* [facility] Jul 13, 2024 09:[address] ABDOMEN/PELVIS: FLACA WEAVER [id number] -1950 M Exm Date: JUL 13, 2024@09:41 Req Phys: JATINDER CABRERA Loc: 3ES07-17-2024@09:08 Img Loc: OUTSOURCE CT Service: Unknown (Case [id number] COMPLETE) NON [place] CT ABDOMEN/PELVIS (CT Detailed) CPT:04366 Reason for Study: outside study Clinical History: [...] VERIFIED BY: / *ELECTRONICALLY FILED* [facility] Jul 08, 2024 10:09 AM CHEST 2 VIEWS PA AND LAT: FLACA WEAVER [id number] -1950 M Exm Date: JUL 08, 2024@10:09 Req Phys: KATELYNN PERSON Loc: 2KG07-08-2024@11:49 Im Loc: MAIN X-RAY Service: [place] [address] (Case 24 COMPLETE) CHEST 2 VIEWS PA AND LAT (RAD Detailed) CPT:82936 Reason for Study: Uptrending WBC, POD 5 Clinical History: Pollard IS NOT under investigation for COVID-19 or is COVID-19 negative POD 5, work up for uptrending wbc Responsible provider name and phone number to notify for critical findings if other than user placing the order and pager listed below: User placing orders pager: Katelynn Person LAST CREATININE 0.9 (07/07/24) Report Status: Verified Date Reported: JUL 08, 2024 Date Verified: JUL 08, 2024 Chassis Inspector E-Sig: Report: CHEST 2 VIEWS PA [...] cardiopulmonary disease. READING PHYSICIAN: Sarbjit Vaughn M.D. -[phone] 07/08/2024 12:46 EST [facility] National Teleradiology Program [phone] (For Medical Practitioner Use Only) Attention Patients / Veterans: If you have questions or concerns about these test results, please contact your ordering provider or primary care team. Primary Interpreting Staff: RADIOLOGY,OUTSIDE SERVICE, Staff Physician / RADIOLOGY,OUTSIDE SERVICE [facility] Jul 08, 2024 10:[address] (AP) ABDOMEN/PELVIS W CONTRAST: MEGFLACA YAMIL [id number] -1950 M Exm Date: JUL 08, 2024@10:00 Req Phys: KATELYNN PERSON [facility] Loc: 2KG/07-08-2024@12:07 Img Loc: CT IMAGING Service: [place] [address] (Case 22 COMPLETE) CT (AP) ABDOMEN/PELVIS W CONTRAST(CT Detailed) CPT:85299 Contrast Media : Non-ionic Iodinated Reason for [...] PLASMA .CREAT EGFR(CKD-E >90 Ref: >=60 Allergies: ([place] only) TERAZOSIN (Mar 13, 2015) Report Status: Verified Date Reported: JUL 08, 2024 Date Verified: JUL 08, 2024 Chassis Inspector E-Sig: Report: CT (AP) ABDOMEN/PELVIS W [...] as noted above READING PHYSICIAN: Celestino Blanc -[phone] 07/08/2024 13:04 EST [facility] [employer] [phone] (For Medical Practitioner Use Only) Attention Patients / Veterans: If you have questions or concerns about these test results, please contact your ordering provider or primary care team. Primary Interpreting Staff: RADIOLOGY,OUTSIDE SERVICE, Staff Physician / RADIOLOGY,OUTSIDE SERVICE [facility] Jun 22, 2024 11:49 AM ABSCESS DRAIN PLACEMENT PERITONEAL (P): FLACA WEAVER [id number] -1950 M Exm Date: JUN 22, 2024@11:49 Req Phys: ANGELA HOLDEN Pat Loc: [facility]/06-22-2024@17:14 Img Loc: INTERVENTIONAL RADIOLOGY Service: [place] [address] (Case [id number] COMPLETE) IR PERITONEAL/RETROPERITONEAL PER(ANI Detailed) CPT:02073 Reason for Study: diverticulitis with abscess (Case 3570 COMPLETE) IR MOD SEDATION 10-22 MIN (ANI Detailed) CPT:89454 Clinical History: Pollard IS NOT under investigation for COVID-19 or is COVID-19 negative 73 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 please place abscess drain. Contact number for responsible provider who can be reached for any questions or notifications of critical findings: [phone] n/a LAST CREATININE 0.9 (06/21/24) Report Status: Verified Date Reported: JUN 22, 2024 Date Verified: JUN 22, 2024 Chassis Inspector E-Sig:/ES/LISA PENDLETON MD Report: PROCEDURES: Placement [...] anesthesia. Using real-time CT fluoroscopy, a 5 [employer].comesis catheter was advanced into the collection in the left pelvis. A wire was coiled in the collection. The tract into the collection was dilated to accommodate the 12 [employer] locking pigtail drainage catheter. There was return [...] Primary Interpreting Staff: LISA PENDLETON MD, RADIOLOGIST (Chassis Inspector) /LISA CARDONA [facility] Jun 22, 2024 11:[address] NEEDLE PLACEMENT (P): FLACA WEAVER [id number] -1950 M Exm Date: JUN 22, 2024@11:48 Req Phys: ANGELA HOLDEN Loc: [facility]/06-22-2024@17:14 Img Loc: CT IMAGING Service: [place] [address] (Case [id number] COMPLETE) CT SCAN FOR NEEDLE PLACEMENT (CT Detailed) CPT:41549 Reason for Study: l pelvic abscess drain Clinical History: Report Status: Verified Date Reported: JUN 22, 2024 Date Verified: JUN 22, 2024 Chassis Inspector E-Sig:/ES/LISA PENDLETON MD Report: PROCEDURES: Placement [...] anesthesia. Using real-time CT fluoroscopy, a 5 [employer].comesis catheter was advanced into the collection in the left pelvis. A wire was coiled in the collection. The tract into the collection was dilated to accommodate the 12 [employer] locking pigtail drainage catheter. There was return [...] Primary Interpreting Staff: LISA PENDLETON MD, RADIOLOGIST (Chassis Inspector) /JRT LISA PENDLETON [facility] Jun 21, 2024 06:[address] (AP) ABDOMEN/PELVIS (P): FLACA WEAVER [id number] -1950 M Exm Date: JUN 21, 2024@18:09 Req Phys: DELIA MARTINEZ Loc: [facility] EMERGENCY DEPT WALK-IN (Re Img Loc: CT IMAGING Service: [place] [address] (Case [id number] COMPLETE) CT (AP) ABDOMEN/PELVIS W CONTRAST(CT Detailed) CPT:69908 Contrast Media : Non-ionic Iodinated Reason for [...] PLASMA .CREAT EGFR(CKD-E >90 Ref: >=60 Allergies: ([place] only) TERAZOSIN (Mar 13, 2015) Defer to [...] 21, 2024 Date Verified: JUN 21, 2024 Chassis Inspector E-Sig:/ALEXI/CARLOS A CUNNINGHAM DO Report: EXAMINATION: [...] Interpreting Staff: CARLOS A CUNNINGHAM DO, RADIOLOGIST (Chassis Inspector) /CARLOS A ROWELL [facility] Pathology Reports: [...] RE PORT: Reporting Lab: [facility] [CLIA# [id number]] [place] [address] Accession [UID]: [id number] [[id number]] Received: Jul 16, 2024@14:41 Collection sample: BLOOD Collection date: Jul 16, 2024 14:07 Provider: LEISA GOLDEN Comment on specimen: R AC, RECEIVED 2 BLOOD CULTURE BOTTLES Test(s) ordered: CULTURE & SUSCEPTIBILITY...... completed: Jul 22, 2024 * BACTERIOLOGY FINAL REPORT => Jul 22, 2024 13:39 TECH CODE: [id number] CULTURE RESULTS: NO GROWTH 5 DAYS Bacteriology Remark(s): THIS REPORT IS FINAL =--=--=--=--=--=--=--=--=--= --=--=--=--=--=--=--=--=--=- -=--=--=--=--=--=--=-- Performing Laboratory: Bacteriology Report Performed By: [facility] [CLIA# [id number]] [place] [address] [facility] Jul 16, 2024 01:54 PM LR MICROBIOLOGY RE PORT: Reporting Lab: [facility] [CLIA# [id number]] [place] [address] Accession [UID]: [id number] [[id number]] Received: Jul 16, 2024@14:41 Collection sample: BLOOD Collection date: Jul 16, 2024 13:54 Provider: LEISA GOLDEN Comment on specimen: L AC, RECEIVED 2 BLOOD CULTURE BOTTLES Test(s) ordered: CULTURE & SUSCEPTIBILITY...... completed: Jul 22, 2024 * BACTERIOLOGY FINAL REPORT => Jul 22, 2024 13:39 TECH CODE: [id number] CULTURE RESULTS: NO GROWTH 5 DAYS Bacteriology Remark(s): THIS REPORT IS FINAL =--=--=--=--=--=--=--=--=--= --=--=--=--=--=--=--=--=--=- -=--=--=--=--=--=--=-- Performing Laboratory: Bacteriology Report Performed By: [facility] [CLIA# [id number]] [place] [address] [facility] Jul 03, 2024 05:59 AM LR SURGICAL PATHOL OGY REPORT: LOCAL TITLE: LR SURGICAL PATHOLOGY REPORT STANDARD TITLE: PATHOLOGY REPORT DATE OF NOTE: JUL 06, 2024@10:40:48 ENTRY DATE: JUL 06, 2024@10:40:48 AUTHOR: EDUARDO PALOMARES COSIGNER: URGENCY: STATUS: COMPLETED $APHDR Reporting Lab: [facility] [CLIA# [id number]] [place] [address] - - - - - - - [...] - PATHOLOGY REPORT Accession No. [id number] - - - - - - - [...] - PATHOLOGY REPORT Accession No. [id number] - - - - - - - [...] Second circumferential surgical margin, en face; E-F: Ct Scan Technologist diverticula; G: Ct Scan Technologist section of mesentery; H: Random retail representative section of additional adipose tissue fragment. [...] One colonic tissue ring, bisected transversely. [facility]. [facility] MICROSCOPIC DESCRIPTION: Microscopic examination performed. DIAGNOSIS: 1. Colon, sigmoid, sigmoidectomy-- - Diverticulosis with perforation and focal abscess formation 2. Colon, anastomotic rings, excision-- - Viable colonic mucosa without diagnostic abnormality /alexi/ EDUARDO PALOMARES MD STAFF PATHOLOGIST Signed Jul 06, 2024@10:40 Performing Laboratory: Surgical Pathology Report Performed By: [facility] [CLIA# [id number]] [place] [address] $FTR - - - - - - [...] - - [employer] STANDARD FORM 515 ID:[id number] SEX:M :1950 AGE: 73 LOC:81993 ADM:Jun DX:DIVERTICULITIS PCP: Jatinder Cabrera /alexi/ EDUARDO PALOMARES MD STAFF PATHOLOGIST Signed: 07/06/2024 10:40 EDUARDO PALOMARES [facility] Jun 22, 2024 01:15 PM LR MICROBIOLOGY RE PORT: Reporting Lab: [facility] [CLIA# [id number]] [place] [address] Accession [UID]: [id number] [[id number]] Received: Jun 22, 2024@13:38 Collection sample: FLUID Collection date: Jun 22, 2024 13:15 Provider: ANGELA HOLDEN Comment on specimen: LLQ ABSCESS, RECEIVED IN ANAEROBIC TRANSPORT VIAL Test(s) ordered: GRAM STAIN.................... completed: Jun 22, 2024 15:03 CULTURE & SUSCEPTIBILITY...... completed: Jun 25, 2024 * BACTERIOLOGY FINAL REPORT => Jun 25, 2024 10:56 TECH CODE: [id number] GRAM STAIN: DIRECT SMEAR of specimen before [...] Bacteriology Report Performed By: [facility] [CLIA# [id number]] [place] [address] [facility] Jun 22, 2024 01:15 PM LR MICROBIOLOGY RE PORT: Reporting Lab: [facility] [CLIA# [id number]] [place] [address] Accession [UID]: [id number] [[id number]] Received: Jun 22, 2024@13:38 Collection sample: FLUID Collection date: Jun 22, 2024 13:15 Provider: ANGELA HOLDEN Comment on specimen: LLQ ABSCESS, RECEIVED IN ANAEROBIC TRANSPORT VIAL Test(s) ordered: ANAEROBIC CULTURE............. completed: Jun 28, 2024 * BACTERIOLOGY FINAL REPORT => Jun 28, 2024 10:08 TECH CODE: [id number] CULTURE RESULTS: HEAVY GROWTH MIXED ANAEROBES Comment: [...] Bacteriology Report Performed By: [facility] [CLIA# [id number]] [place] [address] [facility] Jun 21, 2024 06:12 PM LR MICROBIOLOGY RE PORT: Reporting Lab: [facility] [CLIA# [id number]] [place] [address] Accession [UID]: [id number] [[id number]] Received: Jun 21, 2024@18:12 Collection sample: BLOOD [...] Bacteriology Report Performed By: [facility] [CLIA# [id number]] [place] [address] [facility] Jun 21, 2024 06:11 PM LR MICROBIOLOGY RE PORT: Reporting Lab: [facility] [CLIA# [id number]] [place] [address] Accession [UID]: [id number] [[id number]] Received: Jun 21, 2024@18:11 Collection sample: BLOOD [...] Bacteriology Report Performed By: [facility] [IA# [id number]] [place] [address] [facility]
--- OUTSIDE RECORDS SUMMARY | 2024-08-01 07:50 | XMS_ITS | Encounter Summary ---
Author Name [facility] [place] [facility] [place] [facility] [place] Address [address] [place] [address] Care Team Providers Care Laborer Vineyard Name Role Phone JATINDER CABRERA Primary Care [...] PART A Sep 29, 2016 PART A [id number] [phone] JUDY WEAVER PATIENT Selected Encounter This section includes the information on record at [place] for the Encounter. Date/Time Encounter Type Encounter Description Reason Pro vider Source Jul 21, 2024 01:44 PM Outpatient Encounter CLINICAL PHARMACY E Encounter Template Text not used by [place] [...] LAB BLOOD WC [facility] Jul 16, 2024 12:00 [...] Range Comment Jul 21, 2024 10:38 AM [facility] BASIC METABOLIC PANEL+MG Specimen Type: PLASMA No comment entered. Ordering Provider: SARAI GOLDEN Report Released Date/Time: Jul 20, 2024 06:50 PM Reporting Lab: [facility] [address] Performing Lab: [facility] [address] CREATININE 0.8 mg/dL 0.7-1.2 UREA NITROGEN 31 mg/dL H 8-26 GLUCOSE 120 mg/dL H 70-100 SODIUM 125 mmol/L L 136-145 POTASSIUM 4.4 mmol/L 3.5-5.1 CHLORIDE 100 mmol/L 98-107 CO2 17 mmol/L L 22-29 CALCIUM 9.6 mg/dL 8.4-10.2 MAGNESIUM 1.9 mg/dL 1.6-2.6 ANION GAP 8 mmol/L 5-15 .CREAT EGFR(CKD-EPI) >90 >60 Jul 21, 2024 10:38 AM [facility] CBC Specimen Type: BLOOD No comment entered. Ordering Provider: SARAI GOLDEN Report Released Date/Time: Jul 20, 2024 06:50 PM Reporting Lab: [facility] [address] Performing Lab: [facility] [address] WBC 16.0 H 4.0-11.0 RBC 5.16 4.60-6.20 HGB 15.8 g/dL 13.5-17.9 HCT 45.5 41.0-54.0 MCV 88.2 fL 80.0-100.0 MCH 30.6 pg 27.0-33.0 MCHC 34.7 g/dL 32.0-37.5 PLT 428 H 150-400 MPV 10.8 fL 9.1-13.0 RDW 13.6 11.5-14.5 Jul 20, 2024 01:00 PM [facility] SODIUM,URINE RANDOM Specimen Type: URINE No comment entered. Ordering Provider: SARAI GOLDEN Report Released Date/Time: Jul 20, 2024 08:22 AM Reporting Lab: [facility] [address] Performing Lab: [facility] [address] SODIUM,URINE RANDOM <20 mmol/L Jul 20, 2024 01:00 PM [facility] OSMOLALITY,URINE Specimen Type: URINE No comment entered. Ordering Provider: SARAI GOLDEN Report Released Date/Time: Jul 20, 2024 08:22 AM Reporting Lab: [facility] [address] Performing Lab: [facility] [address] OSMOLALITY,URIN E 648 mosm/kg 500-800 Jul 20, 2024 06:45 AM [facility] BASIC METABOLIC PANEL+MG Specimen Type: PLASMA No comment entered. Ordering Provider: SARAI GOLDEN Report Released Date/Time: Jul 19, 2024 06:13 PM Reporting Lab: [facility] [address] Performing Lab: [facility] [address] CREATININE 0.8 mg/dL 0.7-1.2 UREA NITROGEN 36 mg/dL H 8-26 GLUCOSE 111 mg/dL H 70-100 SODIUM 121 mmol/L L 136-145 POTASSIUM 4.1 mmol/L 3.5-5.1 CHLORIDE 99 mmol/L 98-107 CO2 14 mmol/L L 22-29 CALCIUM 9.5 mg/dL 8.4-10.2 MAGNESIUM 1.8 mg/dL 1.6-2.6 ANION GAP 8 mmol/L 5-15 .CREAT EGFR(CKD-EPI) >90 >60 Jul 20, 2024 06:43 AM [facility] CBC & DIFF Specimen Type: BLOOD Comment: Automated Differential Performed Ordering Provider: SARAI GOLDEN Report Released Date/Time: Jul 19, 2024 06:13 PM Reporting Lab: [facility] [address] Performing Lab: [facility] [address] WBC 16.6 H 4.0-11.0 RBC 4.96 4.60-6.20 [...] H 0.0-0.1 Jul 20, 2024 05:30 AM [facility] OSMOLALITY,SERUM Specimen Type: SERUM No comment entered. Ordering Provider: SARAI GOLDEN Report Released Date/Time: Jul 20, 2024 09:47 AM Reporting Lab: [facility] [address] Performing Lab: [facility] [address] OSMOLALITY,SERU M 266 mosm/kg L 276-305 Jul 19, 2024 08:57 AM [facility] BASIC METABOLIC PANEL+MG Specimen Type: PLASMA No comment entered. Ordering Provider: SARAI GOLDEN Report Released Date/Time: Jul 18, 2024 10:24 PM Reporting Lab: [facility] [address] Performing Lab: [facility] [address] CREATININE 1.0 mg/dL 0.7-1.2 UREA NITROGEN 40 mg/dL H 8-26 GLUCOSE 104 mg/dL H 70-100 SODIUM 129 mmol/L L 136-145 POTASSIUM 3.3 mmol/L L 3.5-5.1 CHLORIDE 104 mmol/L 98-107 CO2 16 mmol/L L 22-29 CALCIUM 8.0 mg/dL L 8.4-10.2 MAGNESIUM 1.7 mg/dL 1.6-2.6 ANION GAP 9 mmol/L 5-15 .CREAT EGFR(CKD-EPI) 80 >60 Jul 19, 2024 08:57 AM [facility] CBC Specimen Type: BLOOD No comment entered. Ordering Provider: SARAI GOLDEN Report Released Date/Time: Jul 18, 2024 10:24 PM Reporting Lab: [facility] [address] Performing Lab: [facility] [address] WBC 17.3 H 4.0-11.0 RBC 4.83 4.60-6.20 HGB 14.8 g/dL 13.5-17.9 HCT 42.6 41.0-54.0 MCV 88.2 fL 80.0-100.0 MCH 30.6 pg 27.0-33.0 MCHC 34.7 g/dL 32.0-37.5 PLT 456 H 150-400 MPV 10.8 fL 9.1-13.0 RDW 13.7 11.5-14.5 Jul 17, 2024 06:55 PM [facility] PHOSPHORUS Specimen Type: PLASMA No comment entered. Ordering Provider: SARAI GOLDEN Report Released Date/Time: Jul 17, 2024 01:54 PM Reporting Lab: [facility] [address] Performing Lab: [facility] [address] PHOSPHORUS 2.9 mg/dL 2.3-4.3 Jul 17, 2024 06:55 PM [facility] BASIC METABOLIC PANEL+MG Specimen Type: PLASMA No comment entered. Ordering Provider: SARAI GOLDEN Report Released Date/Time: Jul 17, 2024 01:54 PM Reporting Lab: [facility] [address] Performing Lab: [facility] [address] CREATININE 1.2 mg/dL 0.7-1.2 UREA NITROGEN 62 mg/dL H 8-26 GLUCOSE 116 mg/dL H 70-100 SODIUM 128 mmol/L L 136-145 POTASSIUM 3.8 mmol/L 3.5-5.1 CHLORIDE 100 mmol/L 98-107 CO2 16 mmol/L L 22-29 CALCIUM 9.3 mg/dL 8.4-10.2 MAGNESIUM 2.1 mg/dL 1.6-2.6 ANION GAP 12 mmol/L 5-15 .CREAT EGFR(CKD-EPI) 64 >60 Jul 17, 2024 07:00 AM [facility] CBC & DIFF Specimen Type: BLOOD Comment: Manual Differential Performed Ordering Provider: SARAI GOLDEN Report Released Date/Time: Jul 16, 2024 04:52 PM Reporting Lab: [facility] [address] Performing Lab: [facility] [address] WBC 18.9 H 4.0-11.0 RBC 5.55 4.60-6.20 [...] MORPHOLOGY PRESENT Jul 17, 2024 07:00 AM [facility] ALBUMIN Specimen Type: PLASMA No comment entered. Ordering Provider: SARAI GOLDEN Report Released Date/Time: Jul 16, 2024 12:12 PM Reporting Lab: [facility] [address] Performing Lab: [facility] [address] ALBUMIN 4.3 g/dL 3.5-5.0 Jul 17, 2024 07:00 AM [facility] COMPREHENSIVE METABOLIC PANEL+MG Specimen Type: PLASMA No comment entered. Ordering Provider: SARAI GOLDEN Report Released Date/Time: Jul 16, 2024 04:52 PM Reporting Lab: [facility] [address] Performing Lab: [facility] [address] CREATININE 1.3 mg/dL H 0.7-1.2 UREA NITROGEN [...] L >60 Jul 16, 2024 07:10 PM [facility] LACTIC ACID Specimen Type: PLASMA No comment entered. Ordering Provider: SARAI GOLDEN Report Released Date/Time: Jul 16, 2024 12:12 PM Reporting Lab: [facility] [address] Performing Lab: [facility] [address] LACTIC ACID 0.9 mmol/L 0.5-2.2 Jul 16, 2024 02:14 PM [facility] MRSA SURVL NARES DNA Specimen Type: NARES No comment entered. Ordering Provider: SARAI GOLDEN Report Released Date/Time: Jul 16, 2024 12:12 PM Reporting Lab: [facility] [address] Performing Lab: [facility] [address] MRSA SURVL NARES DNA NEGATIVE Negative Jul 16, 2024 02:10 PM [facility] LACTIC ACID Specimen Type: PLASMA No comment entered. Ordering Provider: SARAI GOLDEN Report Released Date/Time: Jul 16, 2024 12:12 PM Reporting Lab: [facility] [address] Performing Lab: [facility] [address] LACTIC ACID 0.9 mmol/L 0.5-2.2 Jul 16, 2024 02:08 PM [facility] COMPREHENSIVE METABOLIC PANEL+MG Specimen Type: PLASMA No comment entered. Ordering Provider: SARAI GOLDEN Report Released Date/Time: Jul 16, 2024 12:12 PM Reporting Lab: [facility] [address] Performing Lab: [facility] [address] CREATININE 2.0 mg/dL H 0.7-1.2 UREA NITROGEN [...] L >60 Jul 16, 2024 02:08 PM [facility] CBC & DIFF Specimen Type: BLOOD Comment: Manual Differential Performed Ordering Provider: SARAI GOLDEN Report Released Date/Time: Jul 16, 2024 12:12 PM Reporting Lab: [facility] [address] Performing Lab: [facility] [address] WBC 19.7 H 4.0-11.0 RBC 5.39 4.60-6.20 [...] MORPHOLOGY PRESENT Jul 10, 2024 07:16 AM [facility] PHOSPHORUS Specimen Type: PLASMA No comment entered. Ordering Provider: JUANCARLOS ECHOLS Report Released Date/Time: Jul 09, 2024 12:23 PM Reporting Lab: [facility] [address] Performing Lab: [facility] [address] PHOSPHORUS 3.0 mg/dL 2.3-4.3 Jul 10, 2024 07:16 AM [facility] BASIC METABOLIC PANEL+MG Specimen Type: PLASMA No comment entered. Ordering Provider: JUANCARLOS ECHOLS S Report Released Date/Time: Jul 09, 2024 12:23 PM Reporting Lab: [facility] [address] Performing Lab: [facility] [address] CREATININE 0.7 mg/dL 0.7-1.2 UREA NITROGEN 27 [...] 2024 12:23 PM Reporting Lab: [facility] [address] Performing Lab: [facility] [address] WBC 18.8 H 4.0-11.0 RBC 5.08 4.60-6.20 [...] 2024 06:18 PM Reporting Lab: [facility] [address] Performing Lab: [facility] [address] WBC 15.3 H 4.0-11.0 RBC 4.91 4.60-6.20 [...] 2024 08:41 AM Reporting Lab: [facility] [address] Performing Lab: [facility] [address] URINE COLOR YELLOW SPECIFIC GRAVITY >1.050 H [...] 2024 04:49 PM Reporting Lab: [facility] [address] Performing Lab: [facility] [address] WBC 17.5 H 4.0-11.0 RBC 4.88 4.60-6.20 [...] 2024 04:49 PM Reporting Lab: [facility] [address] Performing Lab: [facility] [address] PHOSPHORUS 2.6 mg/dL 2.3-4.3 Jul 08, 2024 09:54 AM [facility] BASIC METABOLIC PANEL+MG Specimen Type: PLASMA Comment: Specimen received in Lab at: [id number] Ordering Provider: JUANCARLOS ECHOLS Report Released Date/Time: Jul 07, 2024 04:49 PM Reporting Lab: [facility] [address] Performing Lab: [facility] [address] CREATININE 0.9 mg/dL 0.7-1.2 UREA NITROGEN 26 [...] 2024 12:26 PM Reporting Lab: [facility] [address] Performing Lab: [facility] [address] C DIFF TOX B GENE PCR NEGATIVE Negative Jul 07, 2024 07:41 AM [facility] BASIC METABOLIC PANEL+MG Specimen Type: PLASMA No comment entered. Ordering Provider: JEVON ZAZUETA Report Released Date/Time: Jul 06, 2024 03:44 PM Reporting Lab: [facility] [address] Performing Lab: [facility] [address] CREATININE 0.9 mg/dL 0.7-1.2 UREA NITROGEN 20 mg/dL 8-26 GLUCOSE 157 mg/dL H 70-100 SODIUM 136 mmol/L 136-145 POTASSIUM 3.7 mmol/L 3.5-5.1 CHLORIDE 102 mmol/L 98-107 CO2 21 mmol/L L 22-29 CALCIUM 9.8 mg/dL 8.4-10.2 MAGNESIUM 1.9 mg/dL 1.6-2.6 ANION GAP 13 mmol/L 5-15 .CREAT EGFR(CKD-EPI) >90 >60 Jul 07, 2024 07:41 AM [facility] PHOSPHORUS Specimen Type: PLASMA No comment entered. Ordering Provider: JEVON ZAZUETA Report Released Date/Time: Jul 06, 2024 03:44 PM Reporting Lab: [facility] [address] Performing Lab: [facility] [address] PHOSPHORUS 3.1 mg/dL 2.3-4.3 Jul 07, 2024 07:40 AM [facility] CBC Specimen Type: BLOOD No comment entered. Ordering Provider: JEVON ZAZUETA Report Released Date/Time: Jul 06, 2024 03:44 PM Reporting Lab: [facility] [address] Performing Lab: [facility] [address] WBC 21.2 H 4.0-11.0 RBC 5.09 4.60-6.20 [...] 2024 01:22 PM Reporting Lab: [facility] [address] Performing Lab: [facility] [address] WBC 18.0 H 4.0-11.0 RBC 4.83 4.60-6.20 [...] 2024 01:22 PM Reporting Lab: [facility] [address] Performing Lab: [facility] [address] PHOSPHORUS 3.6 mg/dL 2.3-4.3 Jul 06, 2024 07:21 AM [facility] BASIC METABOLIC PANEL+MG Specimen Type: PLASMA No comment entered. Ordering Provider: JEVON ZAZUETA Report Released Date/Time: Jul 05, 2024 01:22 PM Reporting Lab: [facility] [address] Performing Lab: [facility] [address] CREATININE 0.7 mg/dL 0.7-1.2 UREA NITROGEN 12 [...] 2024 09:39 AM Reporting Lab: [facility] [address] Performing Lab: [facility] [address] MAGNESIUM 2.0 mg/dL 1.6-2.6 Jul 05, 2024 07:17 AM [facility] PHOSPHORUS Specimen Type: PLASMA No comment entered. Ordering Provider: JUANCARLOS ECHOLS S Report Released Date/Time: Jul 04, 2024 09:39 AM Reporting Lab: [facility] [address] Performing Lab: [facility] [address] PHOSPHORUS 2.0 mg/dL L 2.3-4.3 Jul 05, 2024 07:17 AM [facility] BASIC METABOLIC PANEL+MG Specimen Type: PLASMA No comment entered. Ordering Provider: JUANCARLOS ECHOLS S Report Released Date/Time: Jul 04, 2024 09:39 AM Reporting Lab: [facility] [address] Performing Lab: [facility] [address] CREATININE 0.7 mg/dL 0.7-1.2 UREA NITROGEN 12 [...] 2024 09:39 AM Reporting Lab: [facility] [address] Performing Lab: [facility] [address] WBC 18.3 H 4.0-11.0 RBC 4.49 L [...] 2024 06:31 PM Reporting Lab: [facility] [address] Performing Lab: [facility] [address] CREATININE 0.7 mg/dL 0.7-1.2 UREA NITROGEN 16 [...] 2024 06:31 PM Reporting Lab: [facility] [address] Performing Lab: [facility] [address] PHOSPHORUS 2.8 mg/dL 2.3-4.3 Jul 04, 2024 07:16 AM [facility] CBC Specimen Type: BLOOD No comment entered. Ordering Provider: GABINO CAMERON Report Released Date/Time: Jul 03, 2024 06:31 PM Reporting Lab: [facility] [address] Performing Lab: [facility] [address] WBC 20.6 H 4.0-11.0 RBC 4.63 4.60-6.20 [...] 2024 06:31 PM Reporting Lab: [facility] [address] Performing Lab: [facility] [address] WBC 20.6 H 4.0-11.0 RBC 4.63 4.60-6.20 [...] 2024 06:31 PM Reporting Lab: [facility] [address] Performing Lab: [facility] [address] BNP 292 pg/mL H <99 Jul 03, 2024 10:32 PM [facility] FINGERSTICK GLUCOSE Specimen Type: BLOOD Comment: Save Result Nurse Notified Ordering Provider: KATELYNN PERSON Report Released Date/Time: Jul 03, 2024 10:50 PM Reporting Lab: [facility] [address] Performing Lab: [facility] [address] FINGERSTICK GLUCOSE 126 mg/dL H 70-100 Jul 03, 2024 05:33 PM [facility] FINGERSTICK GLUCOSE Specimen Type: BLOOD Comment: Save Result Nurse Notified Ordering Provider: KATELYNN PERSON Report Released Date/Time: Jul 03, 2024 05:46 PM Reporting Lab: [facility] [address] Performing Lab: [facility] [address] FINGERSTICK GLUCOSE 141 mg/dL H 70-100 Jul 03, 2024 02:31 PM [facility] POC ABG/ELECTROLYTES Specimen Type: ARTERIAL BLOOD Comment: FIO2 = 97% Patient Temp: 36.0 C Sample Type = ARTERIAL Ordering Provider: MAZIN ARREDONDO Report Released Date/Time: Jul 03, 2024 01:48 PM Reporting Lab: [facility] [address] Performing Lab: [facility] [address] POC PH 7.387 7.35-7.45 POC PCO2 34.4 [...] 2024 01:48 PM Reporting Lab: [facility] [address] Performing Lab: [facility] [address] POC PH 7.280 L 7.35-7.45 POC PCO2 [...] 2024 04:01 PM Reporting Lab: [facility] [address] Performing Lab: [facility] [address] URINE COLOR YELLOW SPECIFIC GRAVITY 1.031 1.003-1.03 [...] 2024 03:59 PM Reporting Lab: [facility] [address] Performing Lab: [facility] [address] WBC 15.8 H 4.0-11.0 RBC 5.11 4.60-6.20 [...] 2024 06:07 PM Reporting Lab: [facility] [address] Performing Lab: [facility] [address] CREATININE 0.8 mg/dL 0.7-1.2 UREA NITROGEN 13 [...] 2024 06:07 PM Reporting Lab: [facility] [address] Performing Lab: [facility] [address] WBC 15.5 H 4.0-11.0 RBC 4.93 4.60-6.20 [...] 2024 05:51 PM Reporting Lab: [facility] [address] Performing Lab: [facility] [address] CREATININE 0.7 mg/dL 0.7-1.2 UREA NITROGEN 16 [...] 2024 05:51 PM Reporting Lab: [facility] [address] Performing Lab: [facility] [address] WBC 14.9 H 4.0-11.0 RBC 5.09 4.60-6.20 [...] 2024 05:51 PM Reporting Lab: [facility] [address] Performing Lab: [facility] [address] WBC 16.9 H 4.0-11.0 RBC 5.28 4.60-6.20 [...] 2024 05:51 PM Reporting Lab: [facility] [address] Performing Lab: [facility] [address] CREATININE 0.7 mg/dL 0.7-1.2 UREA NITROGEN 17 [...] Source Jul 21, 2024 06:57 AM 7 [facility] Jul 21, 2024 02:25 AM 3 [facility] Jul 21, 2024 12:10 AM 7 [facility] Social History: Smoking Status [...] 15, 2024 08:30 AM [facility]AC[facility] [...] this document. The data comes from all [place] facilities. Date Advance Directives Provider Source Mar [...] PM CHEST 1 VIEW: FLACA WEAVER YAMIL [id number] -1950 M Exm Date: JUL 18, 2024@18:15 Req Phys: LEISA GOLDEN Pat Loc: 3E07-18-2024@19:00 Img Loc: MAIN X-RAY Service: PRIMARY [place] [address] (Case [id number] COMPLETE) CHEST 1 VIEW (RAD Detailed) CPT:07072 Proc Modifiers : PORTABLE EXAM Reason for Study: SOB Clinical History: IS NOT under investigation for COVID-19 or is COVID-19 negative 73 yo with SOB Responsible provider name and phone number to notify for critical findings if other than user placing the order and pager listed below: User placing orders pager: [phone] LAST CREATININE 1.2 (07/17/24) Report Status: Verified Date Reported: JUL 18, 2024 Date Verified: JUL 18, 2024 Sausage Grinder E-Sig:/ES/CARLOS A CUNNINGHAM DO Report: EXAMINATION: CHEST 1 VIEW Reason for Study: SOB [place] IS NOT under investigation for COVID-19 or is COVID-19 negative 73 yo with SOB Responsible provider name and phone number to notify for critical findings if other than user placing the order and pager listed below: User placing orders pager: [phone] LAST CREATININE 1.2 (07/17/24) SOB TECHNIQUE: Single [...] Interpreting Staff: CARLOS A CUNNINGHAM DO, RADIOLOGIST (Sausage Grinder) /KMCARLOS A DONALD [facility] Jul 16, 2024 07:[address] ABDOMEN/PELVIS: MEGFLACA YAMIL [id number] -1950 Exm Date: JUL 16, 2024@07:49 Req Phys: JATINDER CABRERA [facility] Loc: 07-17-2024@09:02 Img Loc: OUTSOURCE CT Service: Unknown (Case [id number] COMPLETE) NON [place] CT ABDOMEN/PELVIS (CT Detailed) CPT:05315 Reason for Study: outside study Clinical History: [...] BY: / *ELECTRONICALLY FILED* [facility] Jul 13, 2024 09:[address] ABDOMEN/PELVIS: FLACA WEAVER [id number] -1950 M Exm Date: JUL 13, 2024@09:41 Req Phys: JATINDER CABRERA Loc: 3E07-17-2024@09:08 Img Loc: OUTSOURCE CT Service: Unknown (Case [id number] COMPLETE) NON [place] CT ABDOMEN/PELVIS (CT Detailed) CPT:68343 Reason for Study: outside study Clinical History: [...] BY: / *ELECTRONICALLY FILED* [facility] Jul 08, 2024 10:09 AM CHEST 2 VIEWS PA AND LAT: FLACA WEAVER [id number] -1950 M Exm Date: JUL 08, 2024@10:09 Req Phys: KATELYNN PERSON Loc: 2KG07-08-2024@11:49 Img Loc: MAIN X-RAY Service: [place] [address] (Case 24 COMPLETE) CHEST 2 VIEWS PA AND LAT (RAD Detailed) CPT:51277 Reason for Study: Uptrending WBC, POD 5 Clinical History: [place] IS NOT under investigation for COVID-19 or is COVID-19 negative POD 5, work up for uptrending wbc Responsible provider name and phone number to notify for critical findings if other than user placing the order and pager listed below: User placing orders pager: Katelynn Person LAST CREATININE 0.9 (07/07/24) Report Status: Verified Date Reported: JUL 08, 2024 Date Verified: JUL 08, 2024 Sausage Grinder E-Sig: Report: CHEST 2 VIEWS PA AND [...] cardiopulmonary disease. READING PHYSICIAN: Sarbjit Vaughn M.D. -[phone] 07/08/2024 12:46 EST [facility] National Teleradiology Program [phone] (For Medical Practitioner Use Only) Attention Patients / Veterans: If you have questions or concerns about these test results, please contact your ordering provider or primary care team. Primary Interpreting Staff: RADIOLOGY,OUTSIDE SERVICE, Staff Physician / RADIOLOGY,OUTSIDE SERVICE [facility] Jul 08, 2024 10:[address] (AP) ABDOMEN/PELVIS W CONTRAST: FLACA WEAVER [id number] -1950 M Ex Date: JUL 08, 2024@10:00 Req Phys: KATELYNN PERSON [facility] Loc: 2KG/07-08-2024@12:07 Img Loc: CT IMAGING Service: [place] [address] (Case 22 COMPLETE) CT (AP) ABDOMEN/PELVIS W CONTRAST(CT Detailed) CPT:63834 Contrast Media : Non-ionic Iodinated Reason for [...] PLASMA .CREAT EGFR(CKD-E >90 Ref: >=60 Allergies: ([place] only) TERAZOSIN (Mar 13, 2015) Report Status: Verified Date Reported: JUL 08, 2024 Date Verified: JUL 08, 2024 Sausage Grinder E-Sig: Report: CT (AP) ABDOMEN/PELVIS W CONTRAST [...] as noted above READING PHYSICIAN: Celestino Blanc -[phone] 07/08/2024 13:04 EST [facility] Melon #usemelonradiology Program [phone] (For Medical Practitioner Use Only) Attention Patients / Veterans: If you have questions or concerns about these test results, please contact your ordering provider or primary care team. Primary Interpreting Staff: RADIOLOGY,OUTSIDE SERVICE, Staff Physician / RADIOLOGY,OUTSIDE SERVICE [facility] Jun 22, 2024 11:49 AM ABSCESS DRAIN PLACEMENT PERITONEAL (P): FLACA WEAVER [id number] -1950 M Exm Date: JUN 22, 2024@11:49 Req Phys: ANGELA HOLDEN Pat Loc: [facility]/06-22-2024@17:14 Img Loc: INTERVENTIONAL RADIOLOGY Service: [place] [address] (Case [id number] COMPLETE) IR PERITONEAL/RETROPERITONEAL PER(ANI Detailed) CPT:83869 Reason for Study: diverticulitis with abscess (Case [id number] COMPLETE) IR MOD SEDATION 10-22 MIN (ANI Detailed) CPT:70561 Clinical History: [place] IS NOT under investigation for COVID-19 or is COVID-19 negative 73 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 please place abscess drain. Contact number for responsible provider who can be reached for any questions or notifications of critical findings: [phone] n/a LAST CREATININE 0.9 (06/21/24) Report Status: Verified Date Reported: JUN 22, 2024 Date Verified: JUN 22, 2024 Sausage Grinder E-Sig:/ES/LISA PENDLETON MD Report: PROCEDURES: Placement of [...] obtained. A pre-procedural Time-Out was performed per [facility] policy. The patient was placed in the supine position on the CT table. Preprocedural scan performed. The suprapubic region/lower abdominal wall was sterilely prepped and draped in the usual fashion.1% lidocaine without epinephrine was used for local anesthesia. Using real-time CT fluoroscopy, a 5 Israeli Tiendeoesis catheter was advanced into the collection in [...] Primary Interpreting Staff: LISA PENDLETON MD, RADIOLOGIST (Sausage Grinder) /LISA CARDONA [facility] Jun 22, 2024 11:[address] NEEDLE PLACEMENT (P): FLACA WEAVER [id number] -1950 M Exm Date: JUN 22, 2024@11:48 Req Phys: ANGELA HOLDEN Loc: [facility]06-22-2024@17:14 Img Loc: CT IMAGING Service: [place] [address] (Case [id number] COMPLETE) CT SCAN FOR NEEDLE PLACEMENT (CT Detailed) CPT:81792 Reason for Study: l pelvic abscess drain Clinical History: Report Status: Verified Date Reported: JUN 22, 2024 Date Verified: JUN 22, 2024 Sausage Grinder E-Sig:/ES/LISA PENDLETON MD Report: PROCEDURES: Placement of [...] obtained. A pre-procedural Time-Out was performed per [facility] policy. The patient was placed in the supine position on the CT table. Preprocedural scan performed. The suprapubic region/lower abdominal wall was sterilely prepped and draped in the usual fashion.1% lidocaine without epinephrine was used for local anesthesia. Using real-time CT fluoroscopy, a 5 Israeli Tiendeoesis catheter was advanced into the collection in [...] Primary Interpreting Staff: LISA PENDLETON MD, RADIOLOGIST (Sausage Grinder) /JRT LISA PENDLETON [facility] Jun 21, 2024 06:[address] (AP) ABDOMEN/PELVIS (P): FLACA WEAVER [id number] -1950 M Exm Date: JUN 21, 2024@18:09 Req Phys: DELIA MARTINEZ Loc: [facility] (Re Img Loc: CT IMAGING Service: [place] [address] (Case [id number] COMPLETE) CT (AP) ABDOMEN/PELVIS W CONTRAST(CT Detailed) CPT:60117 Contrast Media : Non-ionic Iodinated Reason for [...] PLASMA .CREAT EGFR(CKD-E >90 Ref: >=60 Allergies: ([place] only) TERAZOSIN (Mar 13, 2015) Defer to [...] 21, 2024 Date Verified: JUN 21, 2024 Sausage Grinder E-Sig:/ES/CARLOS A CUNNINGHAM DO Report: EXAMINATION: CT [...] Interpreting Staff: CARLOS A CUNNINGHAM DO, RADIOLOGIST (Sausage Grinder) /CARLOS A ROWELL [facility] Pathology [...] PORT: Reporting Lab: [facility] [CLIA# [id number]] [place] [address] Accession [UID]: [id number] [[id number]] Received: Jul 16, 2024@14:41 Collection sample: BLOOD Collection date: Jul 16, 2024 14:07 Provider: LEISA GOLDEN Comment on specimen: R AC, RECEIVED 2 BLOOD CULTURE BOTTLES Test(s) ordered: CULTURE & SUSCEPTIBILITY...... completed: Jul 22, 2024 * BACTERIOLOGY FINAL REPORT => Jul 22, 2024 13:39 TECH CODE: [id number] CULTURE RESULTS: NO GROWTH 5 DAYS Bacteriology Remark(s): THIS REPORT IS FINAL =--=--=--=--=--=--=--=--=--= --=--=--=--=--=--=--=--=--=- -=--=--=--=--=--=--=-- Performing Laboratory: Bacteriology Report Performed By: [facility] [CLIA# [id number]] [place] [address] [facility] Jul 16, 2024 01:54 PM LR MICROBIOLOGY RE PORT: Reporting Lab: [facility] [CLIA# [id number]] [place] [address] Accession [UID]: [id number] [[id number]] Received: Jul 16, 2024@14:41 Collection sample: BLOOD Collection date: Jul 16, 2024 13:54 Provider: LEISA GOLDEN Comment on specimen: L AC, RECEIVED 2 BLOOD CULTURE BOTTLES Test(s) ordered: CULTURE & SUSCEPTIBILITY...... completed: Jul 22, 2024 * BACTERIOLOGY FINAL REPORT => Jul 22, 2024 13:39 TECH CODE: [id number] CULTURE RESULTS: NO GROWTH 5 DAYS Bacteriology Remark(s): THIS REPORT IS FINAL =--=--=--=--=--=--=--=--=--= --=--=--=--=--=--=--=--=--=- -=--=--=--=--=--=--=-- Performing Laboratory: Bacteriology Report Performed By: [facility] [CLIA# [id number]] [place] [address] [facility] Jul 03, 2024 05:59 AM LR SURGICAL PATHOL OGY REPORT: LOCAL TITLE: LR SURGICAL PATHOLOGY REPORT STANDARD TITLE: PATHOLOGY REPORT DATE OF NOTE: JUL 06, 2024@10:40:48 ENTRY DATE: JUL 06, 2024@10:40:48 AUTHOR: EDUARDO PALOMARESIGNER: URGENCY: STATUS: COMPLETED $APHDR Reporting Lab: [facility] [CLIA# [id number]] [place] [address] - - - - - - - [...] - PATHOLOGY REPORT Accession No. [id number] - - - - - - - [...] - PATHOLOGY REPORT Accession No. [id number] - - - - - - - [...] Second circumferential surgical margin, en face; E-F: Pharmaceutical Sales Specialist diverticula; G: Pharmaceutical Sales Specialist section of mesentery; H: Random denial management representative section of additional adipose tissue fragment. [...] Report Performed By: [facility] [CLIA# [id number]] [place] [address] $FTR - - - - - - [...] - - FLACA WEAVER STANDARD FORM 515 ID:[id number] SEX:M :1950 AGE: 73 LOC:[id number] ADM:Jun DX:DIVERTICULITIS PCP: Jatinder Cabrera /alexi/ EDUARDO PALOMARES MD STAFF PATHOLOGIST Signed: 07/06/2024 10:40 EDUARDO PALOMARES [facility] Jun 22, 2024 01:15 PM LR MICROBIOLOGY RE PORT: Reporting Lab: [facility] [CLIA# [id number]] [place] [address] Accession [UID]: [id number] [[id number]] Received: Jun 22, 2024@13:38 Collection sample: FLUID Collection date: Jun 22, 2024 13:15 Provider: ANGELA HOLDEN Comment on specimen: LLQ ABSCESS, RECEIVED IN ANAEROBIC TRANSPORT VIAL Test(s) ordered: GRAM STAIN.................... completed: Jun 22, 2024 15:03 CULTURE & SUSCEPTIBILITY...... completed: Jun 25, 2024 * BACTERIOLOGY FINAL REPORT => Jun 25, 2024 10:56 TECH CODE: [id number] GRAM STAIN: DIRECT SMEAR of specimen before [...] Report Performed By: [facility] [CLIA# [id number]] [place] [address] [facility] Jun 22, 2024 01:15 PM LR MICROBIOLOGY RE PORT: Reporting Lab: [facility] [CLIA# [id number]] [place] [address] Accession [UID]: [id number] [[id number]] Received: Jun 22, 2024@13:38 Collection sample: FLUID Collection date: Jun 22, 2024 13:15 Provider: ANGELA HOLDEN Comment on specimen: LLQ ABSCESS, RECEIVED IN ANAEROBIC TRANSPORT VIAL Test(s) ordered: ANAEROBIC CULTURE............. completed: Jun 28, 2024 * BACTERIOLOGY FINAL REPORT => Jun 28, 2024 10:08 TECH CODE: [id number] CULTURE RESULTS: HEAVY GROWTH MIXED ANAEROBES Comment: [...] Report Performed By: [facility] [CLIA# [id number]] [place] [address] [facility] Jun 21, 2024 06:12 PM LR MICROBIOLOGY RE PORT: Reporting Lab: [facility] [CLIA# [id number]] [place] [address] Accession [UID]: [id number] [[id number]] Received: Jun 21, 2024@18:12 Collection sample: BLOOD [...] Report Performed By: [facility] [CLIA# [id number]] [place] [address] [facility] Jun 21, 2024 06:11 PM LR MICROBIOLOGY RE PORT: Reporting Lab: [facility] [CLIA# [id number]] [place] [address] Accession [UID]: [id number] [[id number]] Received: Jun 21, 2024@18:11 Collection sample: BLOOD [...] Report Performed By: [facility] [CLIA# [id number]] [place] [address] [facility] Encounter Notes: All associated encounter notes This section contains the clinical notes associated to the Encounter. Date/Time Encounter Note(s) Provider Source Jul 21, 2024 01:44 PM PHARMACY EDUCATION NOTE: LOCAL TITLE: EDUCATION PHARMACY MED INSTRUCTION/RECONCILIATION STANDARD TITLE: PHARMACY EDUCATION NOTE DATE OF NOTE: JUL 21, 2024@13:44 ENTRY DATE: JUL 21, 2024@13:44:40 AUTHOR: BRY JAVIER EXP COSIGNER: URGENCY: STATUS: COMPLETED MEDICATION DISCHARGE EDUCATION LEARNING NEEDS/OBJECTIVES Participant(s) indicates readiness to learn and has been instructed on indications, side effects, directions for use and given a list of medications. Participant(s) will receive medication information sheets for medications filled. Education included discussion of the following: The following medications are NEW: - Cefpodoxime - Oxycodone The following medications that you have a home supply of were reported as not taking prior to hospital admission, however, they were RE-STARTED during admission and you should continue taking at home: - Atropine/Diphenoxylate *Rx was actually never filled on 07/10/24, reversed and returned to stock; new Rx entered by discharging provider - Farshadyllium *Pt confirmed having home supply The following medications were STOPPED; do NOT take any longer: - Empagliflozin - Furosemide - Isosorbide Mononitrate - Hydrochlorothiazide/Lisino pril - Lisinopril - Spironolactone Supplies ordered on discharge: DAVI LYNCH COHESIVE,SMALL C#[id number] SKIN BARRIER FILM 3ML 3M#3345 UNDERPAD,BED 23IN X 36IN PLASTIC BACK VENT,OSTOMY Supplies mailed to patient per request Tobacco Cessation Discharge Plan Not Applicable Source of Info: [facility] Drug Last Refills Rx # Qty Filled Remaining ACETAMINOPHEN 500MG TAB [id number] 07/10/2024 (0) TAKE TWO TABLETS BY MOUTH THREE TIMES A DAY NEEDED FOR PAIN Provider: RENEE RICHARDSON ASPIRIN 81MG EC TAB [id number] 90 07/10/2024 (0) TAKE ONE TABLET BY MOUTH EVERY MORNING FOR HEART DISEASE Provider: JEVON ZAZUETA ATROPINE 0.025/DIPHENOXYLATE 2.5MG TAB [id number] 56 07/10/2024 (0) TAKE 1 TABLET BY MOUTH FOUR TIMES A DAY FOR DIARRHEA Provider: RENEE RICHARDSON You reported not taking this, however, you have been receiving 1 tablet four times daily during your inpatient admission and you should continue taking this at home as well. Filled on discharge, 07/21/24. ATORVASTATIN CALCIUM 40MG TAB 45 04/03/2024 TAKE ONE-HALF TABLET AT BEDTIME FOR CHOLESTEROL : 07/15/2024 When a refill is needed, please contact your doctor for a renewal. BAG,LEG LATEX REUSABLE UROCARE #[id number] 07/10/2024 (0) USE 1 BAG DIRECTED WITH CHAPPELL Provider: JOSE RANDOLPH BARRIER,OSTOMY,NEW IMAGE H#[id number] 10 07/06/2024 (11) USE BARRIER TOPICALLY THREE TIMES A WEEK Provider: MARTI LAYTON CEFPODOXIME PROXETIL 200MG TAB [id number] (0) TAKE ONE TABLET BY MOUTH TWICE A DAY INTRAABDOMINAL INFECTION Provider: THEODORE FARRELL DOCUSATE NA 50MG/SENNOSIDES 8.6MG TAB [id number] 14 07/10/2024 (0) TAKE 1 TABLET BY MOUTH AT BEDTIME NEEDED FOR CONSTIPATION Provider: JEVON ZAZUETA GAUZE PAD 4IN X 4IN 12-PLY STERILE [id number] 50 07/10/2024 (0) USE GAUZE SPONGE GAUZE PAD 4IN X 4IN 12-PLY STERILE TOPICALLY DIRECTED DIRECTED FOR ABSCESS DRAIN CARE Provider: MERY NGUYEN GRADUATE URINE CUP PLASTIC 1000ML [id number] 07/10/2024 (0) USE CUP CUP - GRADUATED - 32OZ TOPICALLY DIRECTED ABCESS DRAIN CARE Provider: MERY NGUYEN NALOXONE HCL 4MG/SPRAY SOLN NASAL SPRAY [id number] 2 07/10/2024 (1) SPRAY 1 DOSE IN ONE NOSTRIL DIRECTED FOR UNRESPONSIVENESS, THEN CALL 911. IF NO CHANGE IN 2-3 MINUTES, GIVE SECOND DOSE IN OPPOSITE NOSTRIL Provider: RENEE RICHARDSON NITROGLYCERIN 0.4MG SL TAB [id number] 07/12/2024 (1) DISSOLVE ONE TABLET UNDER THE TONGUE THREE TIMES A DAY NEEDED FOR CHEST PAIN * MAY REPEAT EVERY 5 MINUTES--NO MORE THAN 3 TOTAL Provider: KIN POLANCO ONDANSETRON HCL 8MG TAB [id number] 07/10/2024 (0) TAKE ONE TABLET BY MOUTH EVERY 8 HOURS NEEDED FOR NAUSEA Provider: RENEE RICHARDSON OXYCODONE 5MG TAB [id number] 56 (0) TAKE ONE TABLET BY MOUTH EVERY 6 HOURS NEEDED FOR PAIN Provider: THEODORE FARRELL POUCH,DRAINABLE,NEW IMAGE H#[id number] 30 07/18/2024 (3) USE POUCH TOPICALLY THREE TIMES A WEEK Provider: MARTI LAYTON POUCH,DRAINABLE,NEW IMAGE H#[id number] 10 07/06/2024 (11) USE POUCH TOPICALLY THREE TIMES A WEEK Provider: MARTI LAYTON PSYLLIUM ORAL PWD [phone] 01/31/2024 (3) TAKE 2 TEASPOONSFUL BY MOUTH EVERY DAY FOR CONSTIPATION Provider: JATINDER CABRERA You reported not taking this, however, you have been receiving 1 teaspoonful twice daily during your inpatient admission and you should continue taking this at home as well. DAVI LYNCH COHESIVE,SMALL C#[id number] 20 (11) USE 1 SEAL TOPICALLY DIRECTED OSTOMY CARE Provider: MARTI LAYTON SKIN BARRIER FILM 3ML 3M#3345 [id number] 25 (11) APPLY PREP TOPICALLY THREE TIMES A WEEK OSTOMY CARE Provider: MARTI LAYTON SPONGE,DRAIN 4IN X 4IN EXCILON DEBORAH#7086 [id number] 50 05/15/2024 (11) USE SPONGE(S) TOPICALLY DIRECTED Provider: MARYBETH POWELL TAPE,MEDIPORE H SOFT 4IN X 10YD 3M#[id number] 07/10/2024 (11) CUT AND APPLY TAPE TOPICALLY DIRECTED FOR ABSCESS DRAIN CARE Provider: MERY NGUYENAD,BED 23IN X 36IN PLASTIC BACK [id number] (2) USE CHUX DIRECTED OSTOMY CARE Provider: MARTI LAYTON VENT,OSTOMY [phone] (11) USE 1 VENT TOPICALLY DIRECTED OSTOMY CARE FOR HIGH OUTPUT POUCHES Provider: MARTI LAYTON \ PARTICIPANTS: Patient TEACHING STRATEGY: Face to Face, Medication information sheets and list of medications READINESS TO LEARN No barriers identified PATIENT/FAMILY RESPONSE (OUTCOME): Verbalizes critical information about the topic FOLLOW-UP RECOMMENDED: As directed by discharging provider /alexi/ BRY JAVIER Pharmacist Signed: 07/21/2024 13:53 Receipt Acknowledged By: 07/21/2024 16:16 /alexi/ THEODORE FARRELL MD, PHD STAFF PHYSICIAN - INFECTIOUS DISEASE BRY JAVIER [facility]
--- OUTSIDE RECORDS SUMMARY | 2024-08-01 07:51 | XMS_ITS | Encounter Summary ---
Author Name [facility] [place] [facility] Address [address] [place] [address] Care Team Providers Care Pelt Dropper Name Role Phone JATINDER CABRERA Primary Care [...] PART A Sep 29, 2016 PART A [id number] JUDY WEAVER PATIENT Selected Encounter This section includes the information on record at [place] for the Encounter. Date/Time Encounter Type Encounter Description Reason Pro vider Source Jul 21, 2024 02:35 PM Inpatient Visit EVENT (HISTORICAL) IHE Encounter [...] stry Order URINALYSIS URINE WC [facility]CE [facility] Jun 12, 2024 12:00 AM Laboratory - Chemi stry Order BNP PLASMA SP ONCE [facility] Jun 21, 2024 05:45 PM Laboratory - Blood Bank Order TYPE & SCREEN - LAB BLOOD WC [facility] Jul 03, 2024 12:00 AM Laboratory - Blood Bank Order TYPE & SCREEN - LAB BLOOD WC [facility] Jul 16, 2024 12:00 AM Laboratory - Chemi stry Order CBC BLOOD SP ONCE [facility] Jul 17, 2024 12:00 AM Laboratory - Chemi stry Order BASIC METABOLIC PANEL+MG PLASMA SP ONCE [facility] Lab Results: +/- 30 [...] Comment Jul 21, 2024 10:[address] [facility] BASIC METABOLIC PANEL+MG Specimen Type: PLASMA No comment entered. Ordering Provider: SARAI GOLDEN Report Released Date/Time: Jul 20, 2024 06:50 PM Reporting Lab: [facility] [address] Performing Lab: [facility] [address] CREATININE 0.8 mg/dL 0.7-1.2 UREA NITROGEN 31 mg/dL H 8-26 GLUCOSE 120 mg/dL H 70-100 SODIUM 125 mmol/L L 136-145 POTASSIUM 4.4 mmol/L 3.5-5.1 CHLORIDE 100 mmol/L 98-107 CO2 17 mmol/L L 22-29 CALCIUM 9.6 mg/dL 8.4-10.2 MAGNESIUM 1.9 mg/dL 1.6-2.6 ANION GAP 8 mmol/L 5-15 .CREAT EGFR(CKD-EPI) >90 >60 Jul 21, 2024 10:[address] [facility] CBC Specimen Type: BLOOD No comment entered. Ordering Provider: SARAI GOLDEN Report Released Date/Time: Jul 20, 2024 06:50 PM Reporting Lab: [facility] [address] Performing Lab: [facility] [address] WBC 16.0 H 4.0-11.0 RBC 5.16 4.60-6.20 HGB 15.8 g/dL 13.5-17.9 HCT 45.5 41.0-54.0 MCV 88.2 fL 80.0-100.0 MCH 30.6 pg 27.0-33.0 MCHC 34.7 g/dL 32.0-37.5 PLT 428 H 150-400 MPV 10.8 fL 9.1-13.0 RDW 13.6 11.5-14.5 Jul 20, 2024 01:[address] [facility] SODIUM,URINE RANDOM Specimen Type: URINE No comment entered. Ordering Provider: SARAI GOLDEN Report Released Date/Time: Jul 20, 2024 08:22 AM Reporting Lab: [facility] [address] Performing Lab: [facility] [address] SODIUM,URINE RANDOM <20 mmol/L Jul 20, 2024 01:[address] [facility] OSMOLALITY,URINE Specimen Type: URINE No comment entered. Ordering Provider: SARAI GOLDEN Report Released Date/Time: Jul 20, 2024 08:22 AM Reporting Lab: [facility] [address] Performing Lab: [facility] [address] OSMOLALITY,URIN E 648 mosm/kg 500-800 Jul 20, 2024 06:[address] [facility] BASIC METABOLIC PANEL+MG Specimen Type: PLASMA No comment entered. Ordering Provider: SARAI GOLDEN Report Released Date/Time: Jul 19, 2024 06:13 PM Reporting Lab: [facility] [address] Performing Lab: [facility] [address] CREATININE 0.8 mg/dL 0.7-1.2 UREA NITROGEN 36 mg/dL H 8-26 GLUCOSE 111 mg/dL H 70-100 SODIUM 121 mmol/L L 136-145 POTASSIUM 4.1 mmol/L 3.5-5.1 CHLORIDE 99 mmol/L 98-107 CO2 14 mmol/L L 22-29 CALCIUM 9.5 mg/dL 8.4-10.2 MAGNESIUM 1.8 mg/dL 1.6-2.6 ANION GAP 8 mmol/L 5-15 .CREAT EGFR(CKD-EPI) >90 >60 Jul 20, 2024 06:[address] [facility] CBC & DIFF Specimen Type: BLOOD Comment: Automated Differential Performed Ordering Provider: SRAAI GOLDEN Report Released Date/Time: Jul 19, 2024 06:13 PM Reporting Lab: [facility] [address] Performing Lab: [facility] [address] WBC 16.6 H 4.0-11.0 RBC 4.96 4.60-6.20 [...] 0.0-0.1 Jul 20, 2024 05:[address] [facility] OSMOLALITY,SERUM Specimen Type: SERUM No comment entered. Ordering Provider: SARAI GOLDEN Report Released Date/Time: Jul 20, 2024 09:47 AM Reporting Lab: [facility] [address] Performing Lab: [facility] [address] OSMOLALITY,SERU M 266 mosm/kg L 276-305 Jul 19, 2024 08:[address] [facility] BASIC METABOLIC PANEL+MG Specimen Type: PLASMA No comment entered. Ordering Provider: SARAI GOLDEN Report Released Date/Time: Jul 18, 2024 10:24 PM Reporting Lab: [facility] [address] Performing Lab: [facility] [address] CREATININE 1.0 mg/dL 0.7-1.2 UREA NITROGEN 40 mg/dL H 8-26 GLUCOSE 104 mg/dL H 70-100 SODIUM 129 mmol/L L 136-145 POTASSIUM 3.3 mmol/L L 3.5-5.1 CHLORIDE 104 mmol/L 98-107 CO2 16 mmol/L L 22-29 CALCIUM 8.0 mg/dL L 8.4-10.2 MAGNESIUM 1.7 mg/dL 1.6-2.6 ANION GAP 9 mmol/L 5-15 .CREAT EGFR(CKD-EPI) 80 >60 Jul 19, 2024 08:[address] [facility] CBC Specimen Type: BLOOD No comment entered. Ordering Provider: SARAI GOLDEN Report Released Date/Time: Jul 18, 2024 10:24 PM Reporting Lab: [facility] [address] Performing Lab: [facility] [address] WBC 17.3 H 4.0-11.0 RBC 4.83 4.60-6.20 HGB 14.8 g/dL 13.5-17.9 HCT 42.6 41.0-54.0 MCV 88.2 fL 80.0-100.0 MCH 30.6 pg 27.0-33.0 MCHC 34.7 g/dL 32.0-37.5 PLT 456 H 150-400 MPV 10.8 fL 9.1-13.0 RDW 13.7 11.5-14.5 Jul 17, 2024 06:[address] [facility] PHOSPHORUS Specimen Type: PLASMA No comment entered. Ordering Provider: SARAI GOLDEN Report Released Date/Time: Jul 17, 2024 01:54 PM Reporting Lab: [facility] [address] Performing Lab: [facility] [address] PHOSPHORUS 2.9 mg/dL 2.3-4.3 Jul 17, 2024 06:[address] [facility] BASIC METABOLIC PANEL+MG Specimen Type: PLASMA No comment entered. Ordering Provider: SARAI GOLDEN Report Released Date/Time: Jul 17, 2024 01:54 PM Reporting Lab: [facility] [address] Performing Lab: [facility] [address] CREATININE 1.2 mg/dL 0.7-1.2 UREA NITROGEN 62 mg/dL H 8-26 GLUCOSE 116 mg/dL H 70-100 SODIUM 128 mmol/L L 136-145 POTASSIUM 3.8 mmol/L 3.5-5.1 CHLORIDE 100 mmol/L 98-107 CO2 16 mmol/L L 22-29 CALCIUM 9.3 mg/dL 8.4-10.2 MAGNESIUM 2.1 mg/dL 1.6-2.6 ANION GAP 12 mmol/L 5-15 .CREAT EGFR(CKD-EPI) 64 >60 Jul 17, 2024 07:[address] [facility] CBC & DIFF Specimen Type: BLOOD Comment: Manual Differential Performed Ordering Provider: SARAI GOLDEN Report Released Date/Time: Jul 16, 2024 04:52 PM Reporting Lab: [facility] [address] Performing Lab: [facility] [address] WBC 18.9 H 4.0-11.0 RBC 5.55 4.60-6.20 [...] PRESENT Jul 17, 2024 07:[address] [facility] ALBUMIN Specimen Type: PLASMA No comment entered. Ordering Provider: SARAI GOLDEN Report Released Date/Time: Jul 16, 2024 12:12 PM Reporting Lab: [facility] [address] Performing Lab: [facility] [address] ALBUMIN 4.3 g/dL 3.5-5.0 Jul 17, 2024 07:[address] [facility] COMPREHENSIVE METABOLIC PANEL+MG Specimen Type: PLASMA No comment entered. Ordering Provider: SARAI GOLDEN Report Released Date/Time: Jul 16, 2024 04:52 PM Reporting Lab: [facility] [address] Performing Lab: [facility] [address] CREATININE 1.3 mg/dL H 0.7-1.2 UREA NITROGEN [...] >60 Jul 16, 2024 07:[address] [facility] LACTIC ACID Specimen Type: PLASMA No comment entered. Ordering Provider: SARAI GOLDEN Report Released Date/Time: Jul 16, 2024 12:12 PM Reporting Lab: [facility] [address] Performing Lab: [facility] [address] LACTIC ACID 0.9 mmol/L 0.5-2.2 Jul 16, 2024 02:[address] [facility] MRSA SURVL NARES DNA Specimen Type: NARES No comment entered. Ordering Provider: SARAI GOLDEN Report Released Date/Time: Jul 16, 2024 12:12 PM Reporting Lab: [facility] [address] Performing Lab: [facility] [address] MRSA SURVL NARES DNA NEGATIVE Negative Jul 16, 2024 02:[address] [facility] LACTIC ACID Specimen Type: PLASMA No comment entered. Ordering Provider: SARAI GOLDEN Report Released Date/Time: Jul 16, 2024 12:12 PM Reporting Lab: [facility] [address] Performing Lab: [facility] [address] LACTIC ACID 0.9 mmol/L 0.5-2.2 Jul 16, 2024 02:[address] [facility] COMPREHENSIVE METABOLIC PANEL+MG Specimen Type: PLASMA No comment entered. Ordering Provider: SARAI GOLDEN Report Released Date/Time: Jul 16, 2024 12:12 PM Reporting Lab: [facility] [address] Performing Lab: [facility] [address] CREATININE 2.0 mg/dL H 0.7-1.2 UREA NITROGEN [...] >60 Jul 16, 2024 02:[address] [facility] CBC & DIFF Specimen Type: BLOOD Comment: Manual Differential Performed Ordering Provider: SARAI GOLDEN Report Released Date/Time: Jul 16, 2024 12:12 PM Reporting Lab: [facility] [address] Performing Lab: [facility] [address] WBC 19.7 H 4.0-11.0 RBC 5.39 4.60-6.20 [...] PRESENT Jul 10, 2024 07:[address] [facility] PHOSPHORUS Specimen Type: PLASMA No comment entered. Ordering Provider: JUANCARLOS ECHOLS Report Released Date/Time: Jul 09, 2024 12:23 PM Reporting Lab: [facility] [address] Performing Lab: [facility] [address] PHOSPHORUS 3.0 mg/dL 2.3-4.3 Jul 10, 2024 07:[address] [facility] BASIC METABOLIC PANEL+MG Specimen Type: PLASMA No comment entered. Ordering Provider: JUANCARLOS ECHOLS S Report Released Date/Time: Jul 09, 2024 12:23 PM Reporting Lab: [facility] [address] Performing Lab: [facility] [address] CREATININE 0.7 mg/dL 0.7-1.2 UREA NITROGEN 27 mg/dL H 8-26 GLUCOSE 104 mg/dL H 70-100 SODIUM 133 mmol/L L 136-145 POTASSIUM 4.3 mmol/L 3.5-5.1 CHLORIDE 102 mmol/L 98-107 CO2 19 mmol/L L 22-29 CALCIUM 10.1 mg/dL 8.4-10.2 MAGNESIUM 1.9 mg/dL 1.6-2.6 ANION GAP 12 mmol/L 5-15 .CREAT EGFR(CKD-EPI) >90 >60 Jul 10, 2024 07:[address] [facility] CBC Specimen Type: BLOOD No comment entered. Ordering Provider: JUANCARLOS ECHOLS Report Released Date/Time: Jul 09, 2024 12:23 PM Reporting Lab: [facility] [address] Performing Lab: [facility] [address] WBC 18.8 H 4.0-11.0 RBC 5.08 4.60-6.20 HGB 15.9 g/dL 13.5-17.9 HCT 46.8 41.0-54.0 MCV 92.1 fL 80.0-100.0 MCH 31.3 pg 27.0-33.0 MCHC 34.0 g/dL 32.0-37.5 PLT 479 H 150-400 MPV 10.2 fL 9.1-13.0 RDW 13.7 11.5-14.5 Jul 09, 2024 07:[address] [facility] CBC Specimen Type: BLOOD No comment entered. Ordering Provider: QUYNH WEISS Report Released Date/Time: Jul 08, 2024 06:18 PM Reporting Lab: [facility] [address] Performing Lab: [facility] [address] WBC 15.3 H 4.0-11.0 RBC 4.91 4.60-6.20 HGB 15.1 g/dL 13.5-17.9 HCT 45.7 41.0-54.0 MCV 93.1 fL 80.0-100.0 MCH 30.8 pg 27.0-33.0 MCHC 33.0 g/dL 32.0-37.5 PLT 443 H 150-400 MPV 10.0 fL 9.1-13.0 RDW 13.5 11.5-14.5 Jul 08, 2024 10:[address] [facility] URINALYSIS Specimen Type: URINE No comment entered. Ordering Provider: KATELYNN PERSON Report Released Date/Time: Jul 08, 2024 08:41 AM Reporting Lab: [facility] [address] Performing Lab: [facility] [address] URINE COLOR YELLOW SPECIFIC GRAVITY >1.050 H [...] NEGATIVE Jul 08, 2024 09:[address] [facility] CBC Specimen Type: BLOOD Comment: Specimen received in Lab at: [id number] Ordering Provider: JUANCARLOS ECHOLS Report Released Date/Time: Jul 07, 2024 04:49 PM Reporting Lab: [facility] [address] Performing Lab: [facility] [address] WBC 17.5 H 4.0-11.0 RBC 4.88 4.60-6.20 HGB 14.9 g/dL 13.5-17.9 HCT 45.7 41.0-54.0 MCV 93.6 fL 80.0-100.0 MCH 30.5 pg 27.0-33.0 MCHC 32.6 g/dL 32.0-37.5 PLT 472 H 150-400 MPV 10.2 fL 9.1-13.0 RDW 13.7 11.5-14.5 Jul 08, 2024 09:[address] [facility] PHOSPHORUS Specimen Type: PLASMA Comment: Specimen received in Lab at: [id number] Ordering Provider: JUANCARLOS ECHOLS Report Released Date/Time: Jul 07, 2024 04:49 PM Reporting Lab: [facility] [address] Performing Lab: [facility] [address] PHOSPHORUS 2.6 mg/dL 2.3-4.3 Jul 08, 2024 09:[address] [facility] BASIC METABOLIC PANEL+MG Specimen Type: PLASMA Comment: Specimen received in Lab at: [id number] Ordering Provider: JUANCARLOS ECHOLS Report Released Date/Time: Jul 07, 2024 04:49 PM Reporting Lab: [facility] [address] Performing Lab: [facility] [address] CREATININE 0.9 mg/dL 0.7-1.2 UREA NITROGEN 26 mg/dL 8-26 GLUCOSE 128 mg/dL H 70-100 SODIUM 134 mmol/L L 136-145 POTASSIUM 3.4 mmol/L L 3.5-5.1 CHLORIDE 100 mmol/L 98-107 CO2 24 mmol/L 22-29 CALCIUM 9.8 mg/dL 8.4-10.2 MAGNESIUM 1.8 mg/dL 1.6-2.6 ANION GAP 10 mmol/L 5-15 .CREAT EGFR(CKD-EPI) >90 >60 Jul 07, 2024 02:[address] [facility] C DIFF PANEL Specimen Type: FECES No comment entered. Ordering Provider: JEVON ZAZUETA Report Released Date/Time: Jul 07, 2024 12:26 PM Reporting Lab: [facility] [address] Performing Lab: [facility] [address] C DIFF TOX B GENE PCR NEGATIVE Negative Jul 07, 2024 07:[address] [facility] PHOSPHORUS Specimen Type: PLASMA No comment entered. Ordering Provider: JEVON ZAZUETA Report Released Date/Time: Jul 06, 2024 03:44 PM Reporting Lab: [facility] [address] Performing Lab: [facility] [address] PHOSPHORUS 3.1 mg/dL 2.3-4.3 Jul 07, 2024 07:[address] [facility] BASIC METABOLIC PANEL+MG Specimen Type: PLASMA No comment entered. Ordering Provider: JEVON ZAZUETA Report Released Date/Time: Jul 06, 2024 03:44 PM Reporting Lab: [facility] [address] Performing Lab: [facility] [address] CREATININE 0.9 mg/dL 0.7-1.2 UREA NITROGEN 20 mg/dL 8-26 GLUCOSE 157 mg/dL H 70-100 SODIUM 136 mmol/L 136-145 POTASSIUM 3.7 mmol/L 3.5-5.1 CHLORIDE 102 mmol/L 98-107 CO2 21 mmol/L L 22-29 CALCIUM 9.8 mg/dL 8.4-10.2 MAGNESIUM 1.9 mg/dL 1.6-2.6 ANION GAP 13 mmol/L 5-15 .CREAT EGFR(CKD-EPI) >90 >60 Jul 07, 2024 07:[address] [facility] CBC Specimen Type: BLOOD No comment entered. Ordering Provider: JEVON ZAZUETA Report Released Date/Time: Jul 06, 2024 03:44 PM Reporting Lab: [facility] [address] Performing Lab: [facility] [address] WBC 21.2 H 4.0-11.0 RBC 5.09 4.60-6.20 HGB 15.9 g/dL 13.5-17.9 HCT 48.3 41.0-54.0 MCV 94.9 fL 80.0-100.0 MCH 31.2 pg 27.0-33.0 MCHC 32.9 g/dL 32.0-37.5 PLT 500 H 150-400 MPV 10.3 fL 9.1-13.0 RDW 13.6 11.5-14.5 Jul 06, 2024 07:[address] [facility] CBC Specimen Type: BLOOD No comment entered. Ordering Provider: JEVON ZAZUETA Report Released Date/Time: Jul 05, 2024 01:22 PM Reporting Lab: [facility] [address] Performing Lab: [facility] [address] WBC 18.0 H 4.0-11.0 RBC 4.83 4.60-6.20 HGB 14.6 g/dL 13.5-17.9 HCT 45.5 41.0-54.0 MCV 94.2 fL 80.0-100.0 MCH 30.2 pg 27.0-33.0 MCHC 32.1 g/dL 32.0-37.5 PLT 368 150-400 MPV 10.4 fL 9.1-13.0 RDW 13.6 11.5-14.5 Jul 06, 2024 07:[address] [facility] PHOSPHORUS Specimen Type: PLASMA No comment entered. Ordering Provider: JEVON ZAZUETA Report Released Date/Time: Jul 05, 2024 01:22 PM Reporting Lab: [facility] [address] Performing Lab: [facility] [address] PHOSPHORUS 3.6 mg/dL 2.3-4.3 Jul 06, 2024 07:[address] [facility] BASIC METABOLIC PANEL+MG Specimen Type: PLASMA No comment entered. Ordering Provider: JEVON ZAZUETA Report Released Date/Time: Jul 05, 2024 01:22 PM Reporting Lab: [facility] [address] Performing Lab: [facility] [address] CREATININE 0.7 mg/dL 0.7-1.2 UREA NITROGEN 12 mg/dL 8-26 GLUCOSE 108 mg/dL H 70-100 SODIUM 138 mmol/L 136-145 POTASSIUM 3.4 mmol/L L 3.5-5.1 CHLORIDE 104 mmol/L 98-107 CO2 20 mmol/L L 22-29 CALCIUM 9.3 mg/dL 8.4-10.2 MAGNESIUM 1.9 mg/dL 1.6-2.6 ANION GAP 14 mmol/L 5-15 .CREAT EGFR(CKD-EPI) >90 >60 Jul 05, 2024 07:[address] [facility] MAGNESIUM Specimen Type: PLASMA No comment entered. Ordering Provider: JUANCARLOS ECHOLS S Report Released Date/Time: Jul 04, 2024 09:39 AM Reporting Lab: [facility] [address] Performing Lab: [facility] [address] MAGNESIUM 2.0 mg/dL 1.6-2.6 Jul 05, 2024 07:[address] [facility] PHOSPHORUS Specimen Type: PLASMA No comment entered. Ordering Provider: JUANCARLOS ECHOLS S Report Released Date/Time: Jul 04, 2024 09:39 AM Reporting Lab: [facility] [address] Performing Lab: [facility] [address] PHOSPHORUS 2.0 mg/dL L 2.3-4.3 Jul 05, 2024 07:[address] [facility] BASIC METABOLIC PANEL+MG Specimen Type: PLASMA No comment entered. Ordering Provider: JUANCARLOS ECHOLS S Report Released Date/Time: Jul 04, 2024 09:39 AM Reporting Lab: [facility] [address] Performing Lab: [facility] [address] CREATININE 0.7 mg/dL 0.7-1.2 UREA NITROGEN 12 mg/dL 8-26 GLUCOSE 84 mg/dL 70-100 SODIUM 135 mmol/L L 136-145 POTASSIUM 3.8 mmol/L 3.5-5.1 CHLORIDE 104 mmol/L 98-107 CO2 24 mmol/L 22-29 CALCIUM 9.3 mg/dL 8.4-10.2 MAGNESIUM 2.0 mg/dL 1.6-2.6 ANION GAP 7 mmol/L 5-15 .CREAT EGFR(CKD-EPI) >90 >60 Jul 05, 2024 07:[address] [facility] CBC Specimen Type: BLOOD No comment entered. Ordering Provider: JUANCARLOS ECHOLS S Report Released Date/Time: Jul 04, 2024 09:39 AM Reporting Lab: [facility] [address] Performing Lab: [facility] [address] WBC 18.3 H 4.0-11.0 RBC 4.49 L 4.60-6.20 HGB 14.1 g/dL 13.5-17.9 HCT 43.4 41.0-54.0 MCV 96.7 fL 80.0-100.0 MCH 31.4 pg 27.0-33.0 MCHC 32.5 g/dL 32.0-37.5 PLT 317 150-400 MPV 10.0 fL 9.1-13.0 RDW 13.9 11.5-14.5 Jul 04, 2024 07:[address] [facility] PHOSPHORUS Specimen Type: PLASMA No comment entered. Ordering Provider: GABINO CAMERON Report Released Date/Time: Jul 03, 2024 06:31 PM Reporting Lab: [facility] [address] Performing Lab: [facility] [address] PHOSPHORUS 2.8 mg/dL 2.3-4.3 Jul 04, 2024 07:[address] [facility] BASIC METABOLIC PANEL+MG Specimen Type: PLASMA No comment entered. Ordering Provider: GABINO CAMERON Report Released Date/Time: Jul 03, 2024 06:31 PM Reporting Lab: [facility] [address] Performing Lab: [facility] [address] CREATININE 0.7 mg/dL 0.7-1.2 UREA NITROGEN 16 mg/dL 8-26 GLUCOSE 129 mg/dL H 70-100 SODIUM 137 mmol/L 136-145 POTASSIUM 3.7 mmol/L 3.5-5.1 CHLORIDE 107 mmol/L 98-107 CO2 22 mmol/L 22-29 CALCIUM 9.0 mg/dL 8.4-10.2 MAGNESIUM 1.9 mg/dL 1.6-2.6 ANION GAP 8 mmol/L 5-15 .CREAT EGFR(CKD-EPI) >90 >60 Jul 04, 2024 07:[address] [facility] CBC Specimen Type: BLOOD No comment entered. Ordering Provider: GABINO CAMERON Report Released Date/Time: Jul 03, 2024 06:31 PM Reporting Lab: [facility] [address] Performing Lab: [facility] [address] WBC 20.6 H 4.0-11.0 RBC 4.63 4.60-6.20 HGB 14.2 g/dL 13.5-17.9 HCT 43.4 41.0-54.0 MCV 93.7 fL 80.0-100.0 MCH 30.7 pg 27.0-33.0 MCHC 32.7 g/dL 32.0-37.5 PLT 329 150-400 MPV 10.4 fL 9.1-13.0 RDW 13.8 11.5-14.5 Jul 04, 2024 07:[address] [facility] CBC & DIFF Specimen Type: BLOOD Comment: Manual Differential Performed Ordering Provider: GABINO CAMERON Report Released Date/Time: Jul 03, 2024 06:31 PM Reporting Lab: [facility] [address] Performing Lab: [facility] [address] WBC 20.6 H 4.0-11.0 RBC 4.63 4.60-6.20 [...] PRESENT Jul 04, 2024 07:[address] [facility] BNP Specimen Type: PLASMA No comment entered. Ordering Provider: GABINO CAMERON Report Released Date/Time: Jul 03, 2024 06:31 PM Reporting Lab: [facility] [address] Performing Lab: [facility] [address] BNP 292 pg/mL H <99 Jul 03, 2024 10:[address] [facility] FINGERSTICK GLUCOSE Specimen Type: BLOOD Comment: Save Result Nurse Notified Ordering Provider: KATELYNN PERSON Report Released Date/Time: Jul 03, 2024 10:50 PM Reporting Lab: [facility] [address] Performing Lab: [facility] [address] FINGERSTICK GLUCOSE 126 mg/dL H 70-100 Jul 03, 2024 05:[address] [facility] FINGERSTICK GLUCOSE Specimen Type: BLOOD Comment: Save Result Nurse Notified Ordering Provider: KATELYNN PERSON Report Released Date/Time: Jul 03, 2024 05:46 PM Reporting Lab: [facility] [address] Performing Lab: [facility] [address] FINGERSTICK GLUCOSE 141 mg/dL H 70-100 Jul 03, 2024 02:[address] [facility] POC ABG/ELECTROLYTES Specimen Type: ARTERIAL BLOOD Comment: FIO2 = 97% Patient Temp: 36.0 C Sample Type = ARTERIAL Ordering Provider: MAZIN ARREDONDO Report Released Date/Time: Jul 03, 2024 01:48 PM Reporting Lab: [facility] [address] Performing Lab: [facility] [address] POC PH 7.387 7.35-7.45 POC PCO2 34.4 [...] 80.0-105.0 Jul 03, 2024 01:[address] [facility] POC ABG/ELECTROLYTES Specimen Type: ARTERIAL BLOOD Comment: FIO2 = 53% Patient Temp: 36.2 C Sample Type = ARTERIAL Ordering Provider: MAZIN ARREDONDO Report Released Date/Time: Jul 03, 2024 01:48 PM Reporting Lab: [facility] [phone] Performing Lab: [facility] [address] POC PH 7.280 L 7.35-7.45 POC PCO2 [...] 80.0-105.0 Jul 03, 2024 06:[address] [facility] URINALYSIS Specimen Type: URINE No comment entered. Ordering Provider: MARYBETH POWELL Report Released Date/Time: Jun 12, 2024 04:01 PM Reporting Lab: [facility] [phone] Performing Lab: [facility] [address] URINE COLOR YELLOW SPECIFIC GRAVITY 1.031 1.003-1.03 [...] NEGATIVE Jul 03, 2024 06:[address] [facility] CBC Specimen Type: BLOOD No comment entered. Ordering Provider: MARYBETH POWELL Report Released Date/Time: Jun 12, 2024 03:59 PM Reporting Lab: [facility] [id number] Performing Lab: [facility] [address] WBC 15.8 H 4.0-11.0 RBC 5.11 4.60-6.20 HGB 16.1 g/dL 13.5-17.9 HCT 49.1 41.0-54.0 MCV 96.1 fL 80.0-100.0 MCH 31.5 pg 27.0-33.0 MCHC 32.8 g/dL 32.0-37.5 PLT 357 150-400 MPV 9.8 fL 9.1-13.0 RDW 13.7 11.5-14.5 Jun 24, 2024 09:[address] [facility] BASIC METABOLIC PANEL+MG Specimen Type: PLASMA Comment: Specimen received in Lab at: [id number] Ordering Provider: JEVON ZAZUETA Report Released Date/Time: Jun 23, 2024 06:07 PM Reporting Lab: [facility] [phone] Performing Lab: [facility] [address] CREATININE 0.8 mg/dL 0.7-1.2 UREA NITROGEN 13 mg/dL 8-26 GLUCOSE 135 mg/dL H 70-100 SODIUM 135 mmol/L L 136-145 POTASSIUM 3.6 mmol/L 3.5-5.1 CHLORIDE 103 mmol/L 98-107 CO2 24 mmol/L 22-29 CALCIUM 9.2 mg/dL 8.4-10.2 MAGNESIUM 1.9 mg/dL 1.6-2.6 ANION GAP 8 mmol/L 5-15 .CREAT EGFR(CKD-EPI) >90 >60 Jun 24, 2024 09:[address] [facility] CBC Specimen Type: BLOOD Comment: Specimen received in Lab at: [id number] Ordering Provider: JEVON ZAZUETA Report Released Date/Time: Jun 23, 2024 06:07 PM Reporting Lab: [facility] [phone] Performing Lab: [facility] [address] WBC 15.5 H 4.0-11.0 RBC 4.93 4.60-6.20 HGB 15.2 g/dL 13.5-17.9 HCT 46.5 41.0-54.0 MCV 94.3 fL 80.0-100.0 MCH 30.8 pg 27.0-33.0 MCHC 32.7 g/dL 32.0-37.5 PLT 223 150-400 MPV 11.4 fL 9.1-13.0 RDW 13.9 11.5-14.5 Jun 23, 2024 07:[address] [facility] COMPREHENSIVE METABOLIC PANEL+MG Specimen Type: PLASMA No comment entered. Ordering Provider: JEVON ZAZUETA Report Released Date/Time: Jun 22, 2024 05:51 PM Reporting Lab: [facility] [phone] Performing Lab: [facility] [address] CREATININE 0.7 mg/dL 0.7-1.2 UREA NITROGEN 16 [...] >60 Jun 23, 2024 07:[address] [facility] CBC & DIFF Specimen Type: BLOOD Comment: Automated Differential Performed Ordering Provider: JEVON ZAZUETA Report Released Date/Time: Jun 22, 2024 05:51 PM Reporting Lab: [facility] [phone] Performing Lab: [facility] [address] WBC 14.9 H 4.0-11.0 RBC 5.09 4.60-6.20 [...] 0.0-0.1 Jun 22, 2024 06:[address] [facility] CBC Specimen Type: BLOOD No comment entered. Ordering Provider: JEVON ZAZUETA Report Released Date/Time: Jun 22, 2024 05:51 PM Reporting Lab: [facility] [address] Performing Lab: [facility] [address] WBC 16.9 H 4.0-11.0 RBC 5.28 4.60-6.20 HGB 16.9 g/dL 13.5-17.9 HCT 50.4 41.0-54.0 MCV 95.5 fL 80.0-100.0 MCH 32.0 pg 27.0-33.0 MCHC 33.5 g/dL 32.0-37.5 PLT 223 150-400 MPV 10.9 fL 9.1-13.0 RDW 14.0 11.5-14.5 Jun 22, 2024 06:[address] [facility] COMPREHENSIVE METABOLIC PANEL+MG Specimen Type: PLASMA No comment entered. Ordering Provider: JEVON ZAZUETA Report Released Date/Time: Jun 22, 2024 05:51 PM Reporting Lab: [facility] [phone] Performing Lab: [facility] [id number] CREATININE 0.7 mg/dL 0.7-1.2 UREA NITROGEN 17 [...] Source Jul 21, 2024 06:[address] [facility] Jul 21, 2024 02:[address] [facility] Jul 21, 2024 12:[address] [facility] Social History: Smoking Status [...] 2024 08:30 AM [facility] [address] 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 May 06, 2023 11:30 AM VA-TOBACCO [...] this document. The data comes from all [place] facilities. Date Advance Directives Provider Source Mar [...] 06:15 PM CHEST 1 VIEW: FLACA WEAVER [id number] -1950 M Exm Date: JUL 18, 2024@18:15 Req Phys: LEISA GOLDEN Pat Loc: 07-18-2024@19:00 Img Loc: MAIN X-RAY Service: PRIMARY [place] [address] (Case [id number] COMPLETE) CHEST 1 VIEW (RAD Detailed) CPT:01960 Proc Modifiers : PORTABLE EXAM Reason for Study: SOB Clinical History: [place] IS NOT under investigation for COVID-19 or is COVID-19 negative 73 yo with SOB Responsible provider name and phone number to notify for critical findings if other than user placing the order and pager listed below: User placing orders pager: [phone] LAST CREATININE 1.2 (07/17/24) Report Status: Verified Date Reported: JUL 18, 2024 Date Verified: JUL 18, 2024 Bunk Assembler E-Sig:/ES/CARLOS A CUNNINGHAM DO Report: EXAMINATION: CHEST 1 VIEW Reason for Study: SOB [place] IS NOT under investigation for COVID-19 or is COVID-19 negative 73 yo with SOB Responsible provider name and phone number to notify for critical findings if other than user placing the order and pager listed below: User placing orders pager: [phone] LAST CREATININE 1.2 (07/17/24) SOB TECHNIQUE: Single [...] Interpreting Staff: CARLOS A CUNNINGHAM DO, RADIOLOGIST (Bunk Assembler) /KMB CARLOS A CUNNINGHAM [facility] Jul 16, 2024 07:[address] ABDOMEN/PELVIS: FLACA WEAVER [id number] -1950 Exm Date: JUL 16, 2024@07:49 Req Phys: JATINDER CABRERA Pat Loc: 07-17-2024@09:02 Img Loc: OUTSOURCE CT Service: Unknown (Case [id number] COMPLETE) NON [place] CT ABDOMEN/PELVIS (CT Detailed) CPT:23149 Reason for Study: outside study Clinical History: [...] BY: / *ELECTRONICALLY FILED* [facility] Jul 13, 2024 09:[address] ABDOMEN/PELVIS: FLACA WEAVER [id number] -1950 M Exm Date: JUL 13, 2024@09:41 Req Phys: JATINDER CABRERA Loc: 3ES07-17-2024@09:08 Img Loc: OUTSOURCE CT Service: Unknown (Case [id number] COMPLETE) NON WI CT ABDOMEN/PELVIS (CT Detailed) CPT:08812 Reason for Study: outside study Clinical History: [...] BY: / *ELECTRONICALLY FILED* [facility] Jul 08, 2024 10:09 AM CHEST 2 VIEWS PA AND LAT: FLACA WEAVER [id number] -1950 M Exm Date: JUL 08, 2024@10:09 Req Phys: KATELYNN PERSON Loc: 2KG07-08-2024@11:49 Im Loc: MAIN X-RAY Service: [place] [address] (Case 24 COMPLETE) CHEST 2 VIEWS PA AND LAT (RAD Detailed) CPT:45591 Reason for Study: Uptrending WBC, POD 5 [...] 08, 2024 Date Verified: JUL 08, 2024 Bunk Assembler E-Sig: Report: CHEST 2 VIEWS PA AND [...] cardiopulmonary disease. READING PHYSICIAN: Sarbjit Vaughn M.D. -[phone] 07/08/2024 12:46 EST [facility] National Teleradiology Program [phone] (For Medical Practitioner Use Only) Attention Patients / Veterans: If you have questions or concerns about these test results, please contact your ordering provider or primary care team. Primary Interpreting Staff: RADIOLOGY,OUTSIDE SERVICE, Staff Physician / RADIOLOGY,OUTSIDE SERVICE [facility] Jul 08, 2024 10:[address] (AP) ABDOMEN/PELVIS W CONTRAST: FLACA WEAVER YAMIL [id number] -1950 M Exm Date: JUL 08, 2024@10:00 Req Phys: KATELYNN PERSON [facility] Loc: 2KG/07-08-2024@12:07 Img Loc: CT IMAGING Service: [place] [address] (Case 22 COMPLETE) CT (AP) ABDOMEN/PELVIS W CONTRAST(CT Detailed) CPT:65099 Contrast Media : Non-ionic Iodinated Reason for [...] PLASMA .CREAT EGFR(CKD-E >90 Ref: >=60 Allergies: ([place] only) TERAZOSIN (Mar 13, 2015) Report Status: Verified Date Reported: JUL 08, 2024 Date Verified: JUL 08, 2024 Bunk Assembler E-Sig: Report: CT (AP) ABDOMEN/PELVIS W CONTRAST [...] as noted above READING PHYSICIAN: Celestino Blanc -[phone] 07/08/2024 13:04 EST [facility] [phone] (For Medical Practitioner Use Only) Attention Patients / Veterans: If you have questions or concerns about these test results, please contact your ordering provider or primary care team. Primary Interpreting Staff: RADIOLOGY,OUTSIDE SERVICE, Staff Physician / RADIOLOGY,OUTSIDE SERVICE [facility] Jun 22, 2024 11:49 AM ABSCESS DRAIN PLACEMENT PERITONEAL (P): FLACA WEAVER [id number] -1950 M Exm Date: JUN 22, 2024@11:49 Req Phys: ANGELA HOLDEN Pat [facility]/06-22-2024@17:14 Img Loc: INTERVENTIONAL RADIOLOGY Service: [place] [address] (Case [id number] COMPLETE) IR PERITONEAL/RETROPERITONEAL PER(ANI Detailed) CPT:64288 Reason for Study: diverticulitis with abscess (Case 3570 COMPLETE) IR MOD SEDATION 10-22 MIN (ANI Detailed) CPT:60613 Clinical History: IS NOT under investigation for COVID-19 or is COVID-19 negative 73 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 please place abscess drain. Contact number for responsible provider who can be reached for any questions or notifications of critical findings: [phone] n/a LAST CREATININE 0.9 (06/21/24) Report Status: Verified Date Reported: JUN 22, 2024 Date Verified: JUN 22, 2024 Bunk Assembler E-Sig:/ES/LISA PENDLETON MD Report: PROCEDURES: Placement of [...] Using real-time CT fluoroscopy, a 5 Israeli CouchCommerceesis catheter was advanced into the collection in [...] Primary Interpreting Staff: LISA PENDLETON MD, RADIOLOGIST (Bunk Assembler) /LISA CARDONA [facility] Jun 22, 2024 11:[address] NEEDLE PLACEMENT (P): FLACA WEAVER [id number] -1950 M Exm Date: JUN 22, 2024@11:48 Req Phys: ANGELA HOLDEN [facility]: [facility]/06-22-2024@17:14 Img Loc: CT IMAGING Service: [place] [address] (Case [id number] COMPLETE) CT SCAN FOR NEEDLE PLACEMENT (CT Detailed) CPT:84791 Reason for Study: l pelvic abscess drain Clinical History: Report Status: Verified Date Reported: JUN 22, 2024 Date Verified: JUN 22, 2024 Bunk Assembler E-Sig:/ES/LISA PENDLETON MD Report: PROCEDURES: Placement of [...] Using real-time CT fluoroscopy, a 5 Israeli CouchCom[employer]esis catheter was advanced into the collection in [...] Primary Interpreting Staff: LISA PENDLETON MD, RADIOLOGIST (Bunk Assembler) /JRT LISA PENDLETON [facility] Jun 21, 2024 06:[address] (AP) ABDOMEN/PELVIS (P): FLACA WEAVER [id number] -1950 M Exm Date: JUN 21, 2024@18:09 Req Phys: DELIA MARTINEZ Loc: [facility] EMERGENCY DEPT WALK-IN (Re Img Loc: CT IMAGING Service: [place] [address] (Case [id number] COMPLETE) CT (AP) ABDOMEN/PELVIS W CONTRAST(CT Detailed) CPT:10820 Contrast Media : Non-ionic Iodinated Reason for [...] PLASMA .CREAT EGFR(CKD-E >90 Ref: >=60 Allergies: ([place] only) TERAZOSIN (Mar 13, 2015) Defer to [...] 21, 2024 Date Verified: JUN 21, 2024 Bunk Assembler E-Sig:/ES/CARLOS A CUNNINGHAM DO Report: EXAMINATION: CT [...] Interpreting Staff: CARLOS A CUNNINGHAM DO, RADIOLOGIST (Bunk Assembler) /CARLOS A ROWELL [facility] Pathology Reports: +/- 30 [...] PORT: Reporting Lab: [facility] [CLIA# [id number]] [place] [address] Accession [UID]: [id number] [[id number]] Received: Jul 16, 2024@14:41 Collection sample: BLOOD Collection date: Jul 16, 2024 14:07 Provider: LEISA GOLDEN Comment on specimen: R AC, RECEIVED 2 BLOOD CULTURE BOTTLES Test(s) ordered: CULTURE & SUSCEPTIBILITY...... completed: Jul 22, 2024 * BACTERIOLOGY FINAL REPORT => Jul 22, 2024 13:39 TECH CODE: [id number] CULTURE RESULTS: NO GROWTH 5 DAYS Bacteriology Remark(s): THIS REPORT IS FINAL =--=--=--=--=--=--=--=--=--= --=--=--=--=--=--=--=--=--=- -=--=--=--=--=--=--=-- Performing Laboratory: Bacteriology Report Performed By: [facility] [employer] [facility] [CLIA# [id number]] [place] [address] [facility] Jul 16, 2024 01:54 PM LR MICROBIOLOGY RE PORT: Reporting Lab: [facility] [employer] [facility] [CLIA# [id number]] [place] [address] Accession [UID]: [id number] [[id number]] Received: Jul 16, 2024@14:41 Collection sample: BLOOD Collection date: Jul 16, 2024 13:54 Provider: LEISA GOLDEN Comment on specimen: L AC, RECEIVED 2 BLOOD CULTURE BOTTLES Test(s) ordered: CULTURE & SUSCEPTIBILITY...... completed: Jul 22, 2024 * BACTERIOLOGY FINAL REPORT => Jul 22, 2024 13:39 TECH CODE: [id number] CULTURE RESULTS: NO GROWTH 5 DAYS Bacteriology Remark(s): THIS REPORT IS FINAL =--=--=--=--=--=--=--=--=--= --=--=--=--=--=--=--=--=--=- -=--=--=--=--=--=--=-- Performing Laboratory: Bacteriology Report Performed By: [facility] [facility] [facility] [CLIA# [id number]] [place] [address] [facility] Jul 03, 2024 05:59 AM LR SURGICAL PATHOL OGY REPORT: LOCAL TITLE: LR SURGICAL PATHOLOGY REPORT STANDARD TITLE: PATHOLOGY REPORT DATE OF NOTE: JUL 06, 2024@10:40:48 ENTRY DATE: JUL 06, 2024@10:40:48 AUTHOR: EDUARDO PALOMARES EXP COSIGNER: URGENCY: STATUS: COMPLETED $APHDR Reporting Lab: [facility] [CLIA# [id number]] [place] [address] - - - - - - - [...] - PATHOLOGY REPORT Accession No. [id number] - - - - - - - [...] - PATHOLOGY REPORT Accession No. [id number] - - - - - - - [...] Second circumferential surgical margin, en face; E-F: Gage Designer diverticula; G: Gage Designer section of mesentery; H: Random customer retention representative section of additional adipose tissue fragment. [...] One colonic tissue ring, bisected transversely. SS. (D)[facility] [place] MICROSCOPIC DESCRIPTION: Microscopic examination performed. DIAGNOSIS: 1. Colon, sigmoid, sigmoidectomy-- - Diverticulosis with perforation and focal abscess formation 2. Colon, anastomotic rings, excision-- - Viable colonic mucosa without diagnostic abnormality /alexi/ EDUARDO PALOMARES MD STAFF PATHOLOGIST Signed Jul 06, 2024@10:40 Performing Laboratory: Surgical Pathology Report Performed By: [facility] [CLIA# [id number]] [place] [address] $FTR - - - - - - [...] - - FLACA WEAVER STANDARD FORM 515 ID:[id number] SEX:M :1950 AGE: 73 LOC:58214 ADM:Jun DX:DIVERTICULITIS PCP: Jatinder Cabrera /alexi/ EDUARDO PALOMARES MD STAFF PATHOLOGIST Signed: 07/06/2024 10:[address] [facility] Jun 22, 2024 01:15 PM LR MICROBIOLOGY RE PORT: Reporting Lab: [facility] [CLIA# [id number]] [place] [address] Accession [UID]: [id number] [[id number]] Received: Jun 22, 2024@13:38 Collection sample: FLUID Collection date: Jun 22, 2024 13:15 Provider: ANGELA HOLDEN Comment on specimen: LLQ ABSCESS, RECEIVED IN ANAEROBIC TRANSPORT VIAL Test(s) ordered: GRAM STAIN.................... completed: Jun 22, 2024 15:03 CULTURE & SUSCEPTIBILITY...... completed: Jun 25, 2024 * BACTERIOLOGY FINAL REPORT => Jun 25, 2024 10:56 TECH CODE: [id number] GRAM STAIN: DIRECT SMEAR of specimen before [...] Report Performed By: [facility] [CLIA# [id number]] [place] [address] [facility] Jun 22, 2024 01:15 PM LR MICROBIOLOGY RE PORT: Reporting Lab: [facility] [CLIA# [id number]] [place] [address] Accession [UID]: [id number] [[id number]] Received: Jun 22, 2024@13:38 Collection sample: FLUID Collection date: Jun 22, 2024 13:15 Provider: ANGELA HOLDEN Comment on specimen: LLQ ABSCESS, RECEIVED IN ANAEROBIC TRANSPORT VIAL Test(s) ordered: ANAEROBIC CULTURE............. completed: Jun 28, 2024 * BACTERIOLOGY FINAL REPORT => Jun 28, 2024 10:08 TECH CODE: [id number] CULTURE RESULTS: HEAVY GROWTH MIXED ANAEROBES Comment: [...] Report Performed By: [facility] [CLIA# [id number]] [place] [address] [facility] Jun 21, 2024 06:12 PM LR MICROBIOLOGY RE PORT: Reporting Lab: [facility] [CLIA# [id number]] [place] [address] Accession [UID]: [id number] [[id number]] Received: Jun 21, 2024@18:12 Collection sample: BLOOD [...] Report Performed By: [facility] [CLIA# [id number]] [place] [address] [facility] Jun 21, 2024 06:11 PM LR MICROBIOLOGY RE PORT: Reporting Lab: [facility] [CLIA# [id number]] [place] [address] Accession [UID]: [id number] [[id number]] Received: Jun 21, 2024@18:11 Collection sample: BLOOD [...] Report Performed By: [facility] [CLIA# [id number]] [place] [address] [facility]
--- OUTSIDE RECORDS SUMMARY | 2024-08-01 07:51 | XMS_ITS | Encounter Summary ---
Author Name [facility] [place] [facility] [place] [facility] [facility] [place] Address [address] [place] [address] Care Team Providers Care Precision Jig Grinder Name Role Phone JATINDER CABRERA Primary Care [...] PART A Sep 29, 2016 PART A [id number] [phone] JUDY WEAVER PATIENT Selected Encounter This section includes the [place] at [place] for [place]counter. Date/Time Encounter Type Encounter Description Reason Pro vider Source Jul 21, 2024 01:00 AM Inpatient Visit ADMIN PAT ACTIVTIES ([employer])CT) SYSTEM,CIS-ARK IHE Encounter Template Text not used [...] of theEncounter. The data comes from all [facility] facilities. Test Date/Time Test Type Test [...] Jul 20, 2024 06:50 PM Reporting Lab: [facility] [address] Performing Lab: [facility] [address] CREATININE 0.8 mg/dL 0.7-1.2 UREA NITROGEN 31 [...] Jul 20, 2024 06:50 PM Reporting Lab: [facility] [address] Performing Lab: [facility] [address] WBC 16.0 H 4.0-11.0 RBC 5.16 4.60-6.20 [...] Jul 20, 2024 08:22 AM Reporting Lab: [facility] [address] Performing Lab: [facility] [address] SODIUM,URINE RANDOM <20 mmol/L Jul 20, 2024 01:00 PM [facility] OSMOLALITY,URINE Specimen Type: URINE No comment entered. Ordering Provider: SARAI GOLDEN Report Released Date/Time: Jul 20, 2024 08:22 AM Reporting Lab: [facility] [address] Performing Lab: [facility] [address] OSMOLALITY,URIN E 648 mosm/kg 500-800 Jul 20, 2024 06:45 AM [facility] BASIC METABOLIC PANEL+MG Specimen Type: PLASMA No comment entered. Ordering Provider: SARAI GOLDEN Report Released Date/Time: Jul 19, 2024 06:13 PM Reporting Lab: [facility] [address] Performing Lab: [facility] [address] CREATININE 0.8 mg/dL 0.7-1.2 UREA NITROGEN 36 [...] Jul 19, 2024 06:13 PM Reporting Lab: [facility] [address] Performing Lab: [facility] [address] WBC 16.6 H 4.0-11.0 RBC 4.96 4.60-6.20 [...] Jul 20, 2024 09:47 AM Reporting Lab: [facility] [address] Performing Lab: [facility] [address] OSMOLALITY,SERU M 266 mosm/kg L 276-305 Jul 19, 2024 08:57 AM [facility] BASIC METABOLIC PANEL+MG Specimen Type: PLASMA No comment entered. Ordering Provider: SARAI GOLDEN Report Released Date/Time: Jul 18, 2024 10:24 PM Reporting Lab: [facility] [address] Performing Lab: [facility] [address] CREATININE 1.0 mg/dL 0.7-1.2 UREA NITROGEN 40 [...] Jul 18, 2024 10:24 PM Reporting Lab: [facility] [address] Performing Lab: [facility] [address] WBC 17.3 H 4.0-11.0 RBC 4.83 4.60-6.20 [...] Jul 17, 2024 01:54 PM Reporting Lab: [facility] [address] Performing Lab: [facility] [address] PHOSPHORUS 2.9 mg/dL 2.3-4.3 Jul 17, 2024 06:55 PM [facility] BASIC METABOLIC PANEL+MG Specimen Type: PLASMA No comment entered. Ordering Provider: SARAI GOLDEN Report Released Date/Time: Jul 17, 2024 01:54 PM Reporting Lab: [facility] [address] Performing Lab: [facility] [address] CREATININE 1.2 mg/dL 0.7-1.2 UREA NITROGEN 62 [...] Jul 16, 2024 04:52 PM Reporting Lab: [facility] [address] Performing Lab: [facility] [address] WBC 18.9 H 4.0-11.0 RBC 5.55 4.60-6.20 [...] Jul 16, 2024 12:12 PM Reporting Lab: [facility] [address] Performing Lab: [facility] [address] ALBUMIN 4.3 g/dL 3.5-5.0 Jul 17, 2024 07:00 AM [facility] COMPREHENSIVE METABOLIC PANEL+MG Specimen Type: PLASMA No comment entered. Ordering Provider: SARAI GOLDEN Report Released Date/Time: Jul 16, 2024 04:52 PM Reporting Lab: [facility] [address] Performing Lab: [facility] [address] CREATININE 1.3 mg/dL H 0.7-1.2 UREA NITROGEN [...] Jul 16, 2024 12:12 PM Reporting Lab: [facility] [address] Performing Lab: [facility] [address] LACTIC ACID 0.9 mmol/L 0.5-2.2 Jul 16, 2024 02:14 PM [facility] MRSA SURVL NARES DNA Specimen Type: NARES No comment entered. Ordering Provider: SARAI GOLDEN Report Released Date/Time: Jul 16, 2024 12:12 PM Reporting Lab: [facility] [address] Performing Lab: [facility] [address] MRSA SURVL NARES DNA NEGATIVE Negative Jul 16, 2024 02:10 PM [facility] LACTIC ACID Specimen Type: PLASMA No comment entered. Ordering Provider: SARAI GOLDEN Report Released Date/Time: Jul 16, 2024 12:12 PM Reporting Lab: [facility] [address] Performing Lab: [facility] [address] LACTIC ACID 0.9 mmol/L 0.5-2.2 Jul 16, 2024 02:08 PM [facility] COMPREHENSIVE METABOLIC PANEL+MG Specimen Type: PLASMA No comment entered. Ordering Provider: SARAI GOLDEN Report Released Date/Time: Jul 16, 2024 12:12 PM Reporting Lab: [facility] [address] Performing Lab: [facility] [address] CREATININE 2.0 mg/dL H 0.7-1.2 UREA NITROGEN [...] Jul 16, 2024 12:12 PM Reporting Lab: [facility] [address] Performing Lab: [facility] [address] WBC 19.7 H 4.0-11.0 RBC 5.39 4.60-6.20 [...] 12:23 PM Reporting Lab: [facility] [address] Performing Lab: [facility] [address] PHOSPHORUS 3.0 mg/dL 2.3-4.3 Jul 10, 2024 07:16 AM [facility] BASIC METABOLIC PANEL+MG Specimen Type: PLASMA No comment entered. Ordering Provider: JUANCARLOS ECHOLS S Report Released Date/Time: Jul 09, 2024 12:23 PM Reporting Lab: [facility] [address] Performing Lab: [facility] [address] CREATININE 0.7 mg/dL 0.7-1.2 UREA NITROGEN 27 [...] 12:23 PM Reporting Lab: [facility] [address] Performing Lab: [facility] [address] WBC 18.8 H 4.0-11.0 RBC 5.08 4.60-6.20 [...] 06:18 PM Reporting Lab: [facility] [address] Performing Lab: [facility] [address] WBC 15.3 H 4.0-11.0 RBC 4.91 4.60-6.20 [...] 08:41 AM Reporting Lab: [facility] [address] Performing Lab: [facility] [address] URINE COLOR YELLOW SPECIFIC GRAVITY >1.050 H [...] 04:49 PM Reporting Lab: [facility] [address] Performing Lab: [facility] [address] WBC 17.5 H 4.0-11.0 RBC 4.88 4.60-6.20 [...] 04:49 PM Reporting Lab: [facility] [address] Performing Lab: [facility] [address] PHOSPHORUS 2.6 mg/dL 2.3-4.3 Jul 08, 2024 09:54 AM [facility] BASIC METABOLIC PANEL+MG Specimen Type: PLASMA Comment: Specimen received in Lab at: [id number] Ordering Provider: JUANCARLOS ECHOLS Report Released Date/Time: Jul 07, 2024 04:49 PM Reporting Lab: [facility] [address] Performing Lab: [facility] [address] CREATININE 0.9 mg/dL 0.7-1.2 UREA NITROGEN 26 [...] 12:26 PM Reporting Lab: [facility] [address] Performing Lab: [facility] [address] C DIFF TOX B GENE PCR NEGATIVE Negative Jul 07, 2024 07:41 AM [facility] PHOSPHORUS Specimen Type: PLASMA No comment entered. Ordering Provider: JEVON ZAZUETA Report Released Date/Time: Jul 06, 2024 03:44 PM Reporting Lab: [facility] [address] Performing Lab: [facility] [address] PHOSPHORUS 3.1 mg/dL 2.3-4.3 Jul 07, 2024 07:41 AM [facility] BASIC METABOLIC PANEL+MG Specimen Type: PLASMA No comment entered. Ordering Provider: JEVON ZAUZETA Report Released Date/Time: Jul 06, 2024 03:44 PM Reporting Lab: [facility] [address] Performing Lab: [facility] [address] CREATININE 0.9 mg/dL 0.7-1.2 UREA NITROGEN 20 [...] 03:44 PM Reporting Lab: [facility] [address] Performing Lab: [facility] [address] WBC 21.2 H 4.0-11.0 RBC 5.09 4.60-6.20 [...] 01:22 PM Reporting Lab: [facility] [address] Performing Lab: [facility] [address] WBC 18.0 H 4.0-11.0 RBC 4.83 4.60-6.20 [...] 01:22 PM Reporting Lab: [facility] [address] Performing Lab: [facility] [address] PHOSPHORUS 3.6 mg/dL 2.3-4.3 Jul 06, 2024 07:21 AM [facility] BASIC METABOLIC PANEL+MG Specimen Type: PLASMA No comment entered. Ordering Provider: JEVON ZAZUETA Report Released Date/Time: Jul 05, 2024 01:22 PM Reporting Lab: [facility] [address] Performing Lab: [facility] [address] CREATININE 0.7 mg/dL 0.7-1.2 UREA NITROGEN 12 [...] 09:39 AM Reporting Lab: [facility] [address] Performing Lab: [facility] [address] MAGNESIUM 2.0 mg/dL 1.6-2.6 Jul 05, 2024 07:17 AM [facility] PHOSPHORUS Specimen Type: PLASMA No comment entered. Ordering Provider: JUANCARLOS ECHOLS S Report Released Date/Time: Jul 04, 2024 09:39 AM Reporting Lab: [facility] [address] Performing Lab: [facility] [address] PHOSPHORUS 2.0 mg/dL L 2.3-4.3 Jul 05, 2024 07:17 AM [facility] BASIC METABOLIC PANEL+MG Specimen Type: PLASMA No comment entered. Ordering Provider: JUANCARLOS ECHOLS S Report Released Date/Time: Jul 04, 2024 09:39 AM Reporting Lab: [facility] [address] Performing Lab: [facility] [address] CREATININE 0.7 mg/dL 0.7-1.2 UREA NITROGEN 12 [...] 09:39 AM Reporting Lab: [facility] [address] Performing Lab: [facility] [address] WBC 18.3 H 4.0-11.0 RBC 4.49 L [...] 06:31 PM Reporting Lab: [facility] [address] Performing Lab: [facility] [address] CREATININE 0.7 mg/dL 0.7-1.2 UREA NITROGEN 16 [...] 06:31 PM Reporting Lab: [facility] [address] Performing Lab: [facility] [address] PHOSPHORUS 2.8 mg/dL 2.3-4.3 Jul 04, 2024 07:16 AM [facility] CBC Specimen Type: BLOOD No comment entered. Ordering Provider: GABINO CAMERON Report Released Date/Time: Jul 03, 2024 06:31 PM Reporting Lab: [facility] [address] Performing Lab: [facility] [address] WBC 20.6 H 4.0-11.0 RBC 4.63 4.60-6.20 [...] 06:31 PM Reporting Lab: [facility] [address] Performing Lab: [facility] [address] WBC 20.6 H 4.0-11.0 RBC 4.63 4.60-6.20 [...] 06:31 PM Reporting Lab: [facility] [address] Performing Lab: [facility] [address] BNP 292 pg/mL H <99 Jul 03, 2024 10:32 PM [facility] FINGERSTICK GLUCOSE Specimen Type: BLOOD Comment: Save Result Nurse Notified Ordering Provider: KATELYNN PERSON Report Released Date/Time: Jul 03, 2024 10:50 PM Reporting Lab: [facility] [address] Performing Lab: [facility] [address] FINGERSTICK GLUCOSE 126 mg/dL H 70-100 Jul 03, 2024 05:33 PM [facility] FINGERSTICK GLUCOSE Specimen Type: BLOOD Comment: Save Result Nurse Notified Ordering Provider: KATELYNN PERSON Report Released Date/Time: Jul 03, 2024 05:46 PM Reporting Lab: [facility] [address] Performing Lab: [facility] [address] FINGERSTICK GLUCOSE 141 mg/dL H 70-100 Jul 03, 2024 02:31 PM [facility] POC ABG/ELECTROLYTES Specimen Type: ARTERIAL BLOOD Comment: FIO2 = 97% Patient Temp: 36.0 C Sample Type = ARTERIAL Ordering Provider: MAZIN ARREDONDO Report Released Date/Time: Jul 03, 2024 01:48 PM Reporting Lab: [facility] [address] Performing Lab: [facility] [address] POC PH 7.387 7.35-7.45 POC PCO2 34.4 [...] 01:48 PM Reporting Lab: [facility] [address] Performing Lab: [facility] [address] POC PH 7.280 L 7.35-7.45 POC PCO2 [...] 04:01 PM Reporting Lab: [facility] [address] Performing Lab: [facility] [address] URINE COLOR YELLOW SPECIFIC GRAVITY 1.031 1.003-1.03 [...] 03:59 PM Reporting Lab: [facility] [address] Performing Lab: [facility] [address] WBC 15.8 H 4.0-11.0 RBC 5.11 4.60-6.20 [...] 06:07 PM Reporting Lab: [facility] [address] Performing Lab: [facility] [address] CREATININE 0.8 mg/dL 0.7-1.2 UREA NITROGEN 13 [...] 06:07 PM Reporting Lab: [facility] [address] Performing Lab: [facility] [address] WBC 15.5 H 4.0-11.0 RBC 4.93 4.60-6.20 [...] 05:51 PM Reporting Lab: [facility] [address] Performing Lab: [facility] [address] CREATININE 0.7 mg/dL 0.7-1.2 UREA NITROGEN 16 [...] 05:51 PM Reporting Lab: [facility] [address] Performing Lab: [facility] [address] WBC 14.9 H 4.0-11.0 RBC 5.09 4.60-6.20 [...] 05:51 PM Reporting Lab: [facility] [address] Performing Lab: [facility] [address] WBC 16.9 H 4.0-11.0 RBC 5.28 4.60-6.20 [...] 05:51 PM Reporting Lab: [facility] [address] Performing Lab: [facility] [address] CREATININE 0.7 mg/dL 0.7-1.2 UREA NITROGEN 17 [...] Jul 21, 2024 06:[address] [facility] Jul 21, 2024 02:[address] [facility] Jul 21, 2024 12:[address] [facility] Social History: Smoking [...] 06:15 PM CHEST 1 VIEW: FLACA WEAVER [id number] -1950 M Exm Date: JUL 18, 2024@18:15 Req Phys: LEISA GOLDEN Pat Loc: 07-18-2024@19:00 Img Loc: MAIN X-RAY Service: [place] [address] (Case [id number] COMPLETE) CHEST 1 VIEW (RAD Detailed) CPT:19980 Proc Modifiers : PORTABLE EXAM Reason for Study: SOB Clinical History: IS NOT under investigation for COVID-19 or is COVID-19 negative 73 yo with SOB Responsible provider name and phone number to notify for critical findings if other than user placing the order and pager listed below: User placing orders pager: [phone] LAST CREATININE 1.2 (07/17/24) Report Status: Verified Date Reported: JUL 18, 2024 Date Verified: JUL 18, 2024 Fnp E-Sig:/ES/CARLOS A CUNNINGHAM DO Report: EXAMINATION: CHEST 1 VIEW Reason for Study: SOB [place] IS NOT under investigation for COVID-19 or is COVID-19 negative 73 yo with SOB Responsible provider name and phone number to notify for critical findings if other than user placing the order and pager listed below: User placing orders pager: [phone] LAST CREATININE 1.2 (07/17/24) SOB TECHNIQUE: Single [...] Interpreting Staff: CARLOS A CUNNINGHAM DO, RADIOLOGIST (Fnp) /CARLOS A ROWELL [facility] Jul 16, 2024 07:[address] [place] [address] ABDOMEN/PELVIS: MEGFLACA YAMIL [id number] -1950 Exm Date: JUL 16, 2024@07:49 Req Phys: JATINDER CABRERA [facility] Loc: 07-17-2024@09:02 Img Loc: OUTSOURCE CT Service: Unknown (Case [id number] COMPLETE) NON [place] CT ABDOMEN/PELVIS (CT Detailed) CPT:48967 Reason for Study: outside study Clinical History: [...] HEALTH Jul 13, 2024 09:[address] [place] [address] ABDOMEN/PELVIS: FLACA WEAVER [id number] -1950 M Exm Date: JUL 13, 2024@09:41 Req Phys: JATINDER CABRERA Loc: 3ES07-17-2024@09:08 Img Loc: OUTSOURCE CT Service: Unknown (Case [id number] COMPLETE) [place] ABDOMEN/PELVIS (CT Detailed) CPT:89099 Reason for Study: outside study Clinical History: [...] 2 VIEWS PA AND LAT: FLACA WEAVER [id number] -1950 M Exm Date: JUL 08, 2024@10:09 Req Phys: KATELYNN PERSON Loc: 2KG07-08-2024@11:49 Img Loc: MAIN X-RAY Service: [place] [address] (Case 24 COMPLETE) CHEST 2 VIEWS PA AND LAT (RAD Detailed) CPT:76965 Reason for Study: Uptrending WBC, POD 5 Clinical History: [place] IS NOT under investigation for COVID-19 or is COVID-19 negative POD 5, work up for uptrending wbc Responsible provider name and phone number to notify for critical findings if other than user placing the order and pager listed below: User placing orders pager: Katelynn Person LAST CREATININE 0.9 (07/07/24) Report Status: Verified Date Reported: JUL 08, 2024 Date Verified: JUL 08, 2024 Fnp E-Sig: Report: CHEST 2 VIEWS PA AND [...] cardiopulmonary disease. READING PHYSICIAN: Sarbjit Vaughn M.D. -[phone] 07/08/2024 12:46 EST [facility] National Teleradiology Program [phone] (For Medical Practitioner Use Only) Attention Patients / Veterans: If you have questions or concerns about these test results, please contact your ordering provider or primary care team. Primary Interpreting Staff: RADIOLOGY,OUTSIDE SERVICE, Staff Physician / RADIOLOGY,OUTSIDE SERVICE [facility] Jul 08, 2024 10:[address] (AP) ABDOMEN/PELVIS W CONTRAST: FLACA WEAVER [id number] -1950 [facility] Date: JUL 08, 2024@10:00 Req Phys: KATELYNN PERSON [facility] Loc: 2KG/07-08-2024@12:07 Img Loc: CT IMAGING Service: [place] [address] (Case 22 COMPLETE) CT (AP) ABDOMEN/PELVIS W CONTRAST(CT Detailed) CPT:65102 Contrast Media : Non-ionic Iodinated Reason for [...] PLASMA .CREAT EGFR(CKD-E >90 Ref: >=60 Allergies: ([facility] only) TERAZOSIN (Mar 13, 2015) Report Status: Verified Date Reported: JUL 08, 2024 Date Verified: JUL 08, 2024 Fnp E-Sig: Report: CT (AP) ABDOMEN/PELVIS W CONTRAST HISTORY: POD 5, Uptrending WBC - Concern for Abscess/other infection COMPARISON: June 21, 2024 TECHNIQUE: CT abdomen and pelvis was performed after intravenous contrast. Axial, sagittal and coronal reformatted images. The study was performed at the local [place] facility and images were sent to the [place] National Teleradiology Program (NTP) for interpretation. Number [...] as noted above READING PHYSICIAN: Celestino Blanc -[phone] 07/08/2024 13:04 [facility] [phone] (For Medical Practitioner Use Only) Attention Patients / Veterans: If you have questions or concerns about these test results, please contact your ordering provider or primary care team. Primary Interpreting Staff: RADIOLOGY,OUTSIDE SERVICE, Staff Physician / RADIOLOGY,OUTSIDE SERVICE [facility] Jun 22, 2024 11:49 AM ABSCESS DRAIN PLACEMENT PERITONEAL (P): FLACA WEAVER [id number] -1950 M Exm Date: JUN 22, 2024@11:49 Req Phys: ANGELA HOLDEN [facility] Loc: [facility]06-22-2024@17:14 Img Loc: INTERVENTIONAL RADIOLOGY Service: [place] [address] (Case [id number] COMPLETE) IR PERITONEAL/RETROPERITONEAL PER(ANI Detailed) CPT:29514 Reason for Study: diverticulitis with abscess (Case 3570 COMPLETE) IR MOD SEDATION 10-22 MIN (ANI Detailed) CPT:68073 Clinical History: [place] IS NOT under investigation for COVID-19 or is COVID-19 negative 73 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 please place abscess drain. Contact number for responsible provider who can be reached for any questions or notifications of critical findings: [phone] n/a LAST CREATININE 0.9 (06/21/24) Report Status: Verified Date Reported: JUN 22, 2024 Date Verified: JUN 22, 2024 Fnp E-Sig:/ES/LISA PENDLETON MD Report: PROCEDURES: Placement of [...] anesthesia. Using real-time CT fluoroscopy, a 5 Welsh [employer] Fund[employer] catheter was advanced into the collection in the left pelvis. A wire was coiled in the collection. The tract into the collection was dilated to accommodate the 12 Welsh locking pigtail drainage catheter. There was return [...] Primary Interpreting Staff: LISA PENDLETON MD, RADIOLOGIST (Fnp) /JRT LISA PENDLETON [facility] Jun 22, 2024 11:[address] NEEDLE PLACEMENT (P): FLACA WEAVER [id number] -1950 M Exm Date: JUN 22, 2024@11:48 Req Phys: ANGELA HOLDEN Loc: [facility]06-22-2024@17:14 Im Loc: CT IMAGING Service: [place] [address] (Case [id number] COMPLETE) CT SCAN FOR NEEDLE PLACEMENT (CT Detailed) CPT:40823 Reason for Study: l pelvic abscess drain Clinical History: Report Status: Verified Date Reported: JUN 22, 2024 Date Verified: JUN 22, 2024 Fnp E-Sig:/ES/LISA PENDLETON MD Report: PROCEDURES: Placement of [...] anesthesia. Using real-time CT fluoroscopy, a 5 Welsh [employer] catheter was advanced into the collection in the left pelvis. A wire was coiled in the collection. The tract into the collection was dilated to accommodate the 12 Welsh locking pigtail drainage catheter. There was return [...] Primary Interpreting Staff: LISA PENDLETON MD, RADIOLOGIST (Fnp) /JRT LISA PENDLETON [facility] Jun 21, 2024 06:[address] (AP) ABDOMEN/PELVIS (P): FLACA WEAVER [id number] -1950 M Exm Date: JUN 21, 2024@18:09 Req Phys: DELIA MARTINEZ Loc: [facility] EMERGENCY DEPT WALK-IN (Re Img Loc: CT IMAGING Service: [place] [address] (Case [id number] COMPLETE) CT (AP) ABDOMEN/PELVIS W CONTRAST(CT Detailed) CPT:14370 Contrast Media : Non-ionic Iodinated Reason for [...] PLASMA .CREAT EGFR(CKD-E >90 Ref: >=60 Allergies: ([facility] only) TERAZOSIN (Mar 13, 2015) Defer to [...] 21, 2024 Date Verified: JUN 21, 2024 Fnp E-Sig:/ALEXI/CARLOS A CUNNINGHAM DO Report: EXAMINATION: CT [...] Interpreting Staff: CARLOS A CUNNINGHAM DO, RADIOLOGIST (Fnp) /CARLOS A ROWELL [facility] Pathology Reports: [...] RE PORT: Reporting Lab: [facility] [CLIA# [id number]] [place] [address] Accession [UID]: [id number] [[id number]] Received: Jul 16, 2024@14:41 Collection sample: BLOOD Collection date: Jul 16, 2024 14:07 Provider: LEISA GOLDEN Comment on specimen: R AC, RECEIVED 2 BLOOD CULTURE BOTTLES Test(s) ordered: CULTURE & SUSCEPTIBILITY...... completed: Jul 22, 2024 * BACTERIOLOGY FINAL REPORT => Jul 22, 2024 13:39 TECH CODE: [id number] CULTURE RESULTS: NO GROWTH 5 DAYS Bacteriology Remark(s): THIS REPORT IS FINAL =--=--=--=--=--=--=--=--=--= --=--=--=--=--=--=--=--=--=- -=--=--=--=--=--=--=-- Performing Laboratory: Bacteriology Report Performed By: [facility] [CLIA# [id number]] [place] [address] [facility] Jul 16, 2024 01:54 PM LR MICROBIOLOGY RE PORT: Reporting Lab: [facility] [employer] [CLIA# [id number]] [place] [address] Accession [UID]: [id number] [[id number]] Received: Jul 16, 2024@14:41 Collection sample: BLOOD Collection date: Jul 16, 2024 13:54 Provider: LEISA GOLDEN Comment on specimen: L AC, RECEIVED 2 BLOOD CULTURE BOTTLES Test(s) ordered: CULTURE & SUSCEPTIBILITY...... completed: Jul 22, 2024 * BACTERIOLOGY FINAL REPORT => Jul 22, 2024 13:39 TECH CODE: [id number] CULTURE RESULTS: NO GROWTH 5 DAYS Bacteriology Remark(s): THIS REPORT IS FINAL =--=--=--=--=--=--=--=--=--= --=--=--=--=--=--=--=--=--=- -=--=--=--=--=--=--=-- Performing Laboratory: Bacteriology Report Performed By: [facility] [employer] [CLIA# [id number]] [place] [address] [facility] Jul 03, 2024 05:59 AM LR SURGICAL PATHOL OGY REPORT: LOCAL TITLE: LR SURGICAL PATHOLOGY REPORT STANDARD TITLE: PATHOLOGY REPORT DATE OF NOTE: JUL 06, 2024@10:40:48 ENTRY DATE: JUL 06, 2024@10:40:48 AUTHOR: EDUARDO PALOMARES EXP COSIGNER: URGENCY: STATUS: COMPLETED $APHDR Reporting Lab: [facility] [CLIA# [id number]] [place] [address] - - - - - - - [...] - PATHOLOGY REPORT Accession No. [id number] - - - - - - - [...] - PATHOLOGY REPORT Accession No. [id number] - - - - - - - [...] Second circumferential surgical margin, en face; E-F: Logistics Clerk diverticula; G: Logistics Clerk section of mesentery; H: Random assisted sales representative section of additional adipose tissue [...] Pathology Report Performed By: [facility] [CLIA# [id number]] [place] [address] $FTR - - - - - - [...] - - [employer] STANDARD FORM 515 ID:[id number] SEX:M :1950 AGE: 73 LOC:[id number] ADM:Jun DX:DIVERTICULITIS PCP: Jatinder Cabrera /alexi/ EDUARDO PALOMARES MD STAFF PATHOLOGIST Signed: 07/06/2024 10:40 EDUARDO PALOMARES [facility] Jun 22, 2024 01:15 PM LR MICROBIOLOGY RE PORT: Reporting Lab: [facility] [CLIA# [id number]] [place] [address] Accession [UID]: [id number] [[id number]] Received: Jun 22, 2024@13:38 Collection sample: FLUID Collection date: Jun 22, 2024 13:15 Provider: ANGELA HOLDEN Comment on specimen: LLQ ABSCESS, RECEIVED IN ANAEROBIC TRANSPORT VIAL Test(s) ordered: GRAM STAIN.................... completed: Jun 22, 2024 15:03 CULTURE & SUSCEPTIBILITY...... completed: Jun 25, 2024 * BACTERIOLOGY FINAL REPORT => Jun 25, 2024 10:56 TECH CODE: [id number] GRAM STAIN: DIRECT SMEAR of specimen before [...] Bacteriology Report Performed By: [facility] [CLIA# [id number]] [place] [address] [facility] Jun 22, 2024 01:15 PM LR MICROBIOLOGY RE PORT: Reporting Lab: [facility] [CLIA# [id number]] [place] [address] Accession [UID]: [id number] [[id number]] Received: Jun 22, 2024@13:38 Collection sample: FLUID Collection date: Jun 22, 2024 13:15 Provider: ANGELA HOLDEN Comment on specimen: LLQ ABSCESS, RECEIVED IN ANAEROBIC TRANSPORT VIAL Test(s) ordered: ANAEROBIC CULTURE............. completed: Jun 28, 2024 * BACTERIOLOGY FINAL REPORT => Jun 28, 2024 10:08 TECH CODE: [id number] CULTURE RESULTS: HEAVY GROWTH MIXED ANAEROBES Comment: [...] Bacteriology Report Performed By: [facility] [CLIA# [id number]] [place] [address] [facility] Jun 21, 2024 06:12 PM LR MICROBIOLOGY RE PORT: Reporting Lab: [facility] [CLIA# [id number]] [place] [address] Accession [UID]: [id number] [[id number]] Received: Jun 21, 2024@18:12 Collection sample: BLOOD [...] Bacteriology Report Performed By: [facility] [CLIA# [id number]] [place] [address] [facility] Jun 21, 2024 06:11 PM LR MICROBIOLOGY RE PORT: Reporting Lab: [facility] [CLIA# [id number]] [place] [address] Accession [UID]: [id number] [[id number]] Received: Jun 21, 2024@18:11 Collection sample: BLOOD [...] Bacteriology Report Performed By: [facility] [CLIA# [id number]] [place] [address] [facility] Encounter Notes: All associated encounter notes This section contains the clinical notes associated to the Encounter. Date/Time Encounter Note(s) Provider Source Jul 21, 2024 01:00 AM CRITICAL CARE UNIT NOTE: LOCAL TITLE: [facility] RESPIRATORY THERAPY FLOWSHEET STANDARD TITLE: CRITICAL CARE UNIT NOTE DATE OF NOTE: JUL 21, 2024@01:00 ENTRY DATE: JUL 22, 2024@15:11:18 AUTHOR: SYSTEM,CIS-ARK EXP COSIGNER: URGENCY: STATUS: COMPLETED This is a place aranda only. Please see CR2 to view document. /es/ [facility] SYSTEM ICU DOCUMENT IMPORT Signed: 07/22/2024 15:11 PETERSONVULCUN-ARK [facility] Jul 21, 2024 01:00 AM CRITICAL CARE UNIT NOTE: LOCAL TITLE: [facility] INPATIENT FLOWSHEET STANDARD TITLE: CRITICAL CARE UNIT NOTE DATE OF NOTE: JUL 21, 2024@01:00 ENTRY DATE: JUL 22, 2024@14:33:27 AUTHOR: [employer]UN[employer] EXP COSIGNER: URGENCY: STATUS: COMPLETED This is a place aranda only. Please see CR2 to view document. /es/ [facility]IS-LYSOGENE[facility] SYSTEM ICU DOCUMENT IMPORT Signed: 07/22/2024 14:33 PETERSONVULCUN-Do It In Person [facility]
--- OUTSIDE RECORDS SUMMARY | 2024-08-01 07:51 | XMS_ITS | Encounter Summary ---
Author Name [facility] [place] [facility] Address [address] [place] [address] Care Team Providers Care Repossession Agent Name Role Phone JATINDER CABRERA Primary Care [...] PART A Sep 29, 2016 PART A [id number] [phone] JUDY WEAVER PATIENT Selected Encounter This section includes the information on record at [place] for the Encounter. Date/Time Encounter Type Encounter Description Reason Pro vider Source Jul 20, 2024 01:00 AM Inpatient Visit ADMIN PAT ACTIVTIES (mxHeroCT) SYSTEM,CIS-ARK IHE Encounter Template Text not used [...] of theEncounter. The data comes from all [facility] facilities. Test Date/Time Test [...] - LAB BLOOD WC [facility] Jul 03, 2024 12:00 AM Laboratory - Blood Bank Order TYPE & SCREEN - LAB BLOOD WC [facility] Jul 16, 2024 12:00 AM [...] Range Comment Jul 21, 2024 10:38 AM [facility] BASIC METABOLIC PANEL+MG Specimen Type: PLASMA No comment entered. Ordering Provider: SARAI GOLDEN Report Released Date/Time: Jul 20, 2024 06:50 PM Reporting Lab: [facility] [address] Performing Lab: [facility] [address] CREATININE 0.8 mg/dL 0.7-1.2 UREA NITROGEN 31 mg/dL H 8-26 GLUCOSE 120 mg/dL H 70-100 SODIUM 125 mmol/L L 136-145 POTASSIUM 4.4 mmol/L 3.5-5.1 CHLORIDE 100 mmol/L 98-107 CO2 17 mmol/L L 22-29 CALCIUM 9.6 mg/dL 8.4-10.2 MAGNESIUM 1.9 mg/dL 1.6-2.6 ANION GAP 8 mmol/L 5-15 .CREAT EGFR(CKD-EPI) >90 >60 Jul 21, 2024 10:38 AM [facility] CBC Specimen Type: BLOOD No comment entered. Ordering Provider: SARAI GOLDEN Report Released Date/Time: Jul 20, 2024 06:50 PM Reporting Lab: [facility] [address] Performing Lab: [facility] [address] WBC 16.0 H 4.0-11.0 RBC 5.16 4.60-6.20 HGB 15.8 g/dL 13.5-17.9 HCT 45.5 41.0-54.0 MCV 88.2 fL 80.0-100.0 MCH 30.6 pg 27.0-33.0 MCHC 34.7 g/dL 32.0-37.5 PLT 428 H 150-400 MPV 10.8 fL 9.1-13.0 RDW 13.6 11.5-14.5 Jul 20, 2024 01:00 PM [facility] SODIUM,URINE RANDOM Specimen Type: URINE No comment entered. Ordering Provider: SARAI GOLDEN Report Released Date/Time: Jul 20, 2024 08:22 AM Reporting Lab: [facility] [address] Performing Lab: [facility] [address] SODIUM,URINE RANDOM <20 mmol/L Jul 20, 2024 01:00 PM [facility] OSMOLALITY,URINE Specimen Type: URINE No comment entered. Ordering Provider: SARAI GOLDEN Report Released Date/Time: Jul 20, 2024 08:22 AM Reporting Lab: [facility] [address] Performing Lab: [facility] [address] OSMOLALITY,URIN E 648 mosm/kg 500-800 Jul 20, 2024 06:45 AM [facility] BASIC METABOLIC PANEL+MG Specimen Type: PLASMA No comment entered. Ordering Provider: SARAI GOLDEN Report Released Date/Time: Jul 19, 2024 06:13 PM Reporting Lab: [facility] [address] Performing Lab: [facility] [address] CREATININE 0.8 mg/dL 0.7-1.2 UREA NITROGEN 36 mg/dL H 8-26 GLUCOSE 111 mg/dL H 70-100 SODIUM 121 mmol/L L 136-145 POTASSIUM 4.1 mmol/L 3.5-5.1 CHLORIDE 99 mmol/L 98-107 CO2 14 mmol/L L 22-29 CALCIUM 9.5 mg/dL 8.4-10.2 MAGNESIUM 1.8 mg/dL 1.6-2.6 ANION GAP 8 mmol/L 5-15 .CREAT EGFR(CKD-EPI) >90 >60 Jul 20, 2024 06:43 AM [facility] CBC & DIFF Specimen Type: BLOOD Comment: Automated Differential Performed Ordering Provider: SARAI GOLDEN Report Released Date/Time: Jul 19, 2024 06:13 PM Reporting Lab: [facility] [address] Performing Lab: [facility] [address] WBC 16.6 H 4.0-11.0 RBC 4.96 4.60-6.20 [...] H 0.0-0.1 Jul 20, 2024 05:30 AM [facility] OSMOLALITY,SERUM Specimen Type: SERUM No comment entered. Ordering Provider: SARAI GOLDEN Report Released Date/Time: Jul 20, 2024 09:47 AM Reporting Lab: [facility] [address] Performing Lab: [facility] [address] OSMOLALITY,SERU M 266 mosm/kg L 276-305 Jul 19, 2024 08:57 AM [facility] BASIC METABOLIC PANEL+MG Specimen Type: PLASMA No comment entered. Ordering Provider: SARAI GOLDEN Report Released Date/Time: Jul 18, 2024 10:24 PM Reporting Lab: [facility] [address] Performing Lab: [facility] [address] CREATININE 1.0 mg/dL 0.7-1.2 UREA NITROGEN 40 mg/dL H 8-26 GLUCOSE 104 mg/dL H 70-100 SODIUM 129 mmol/L L 136-145 POTASSIUM 3.3 mmol/L L 3.5-5.1 CHLORIDE 104 mmol/L 98-107 CO2 16 mmol/L L 22-29 CALCIUM 8.0 mg/dL L 8.4-10.2 MAGNESIUM 1.7 mg/dL 1.6-2.6 ANION GAP 9 mmol/L 5-15 .CREAT EGFR(CKD-EPI) 80 >60 Jul 19, 2024 08:57 AM [facility] CBC Specimen Type: BLOOD No comment entered. Ordering Provider: SARAI GOLDEN Report Released Date/Time: Jul 18, 2024 10:24 PM Reporting Lab: [facility] [address] Performing Lab: [facility] [address] WBC 17.3 H 4.0-11.0 RBC 4.83 4.60-6.20 HGB 14.8 g/dL 13.5-17.9 HCT 42.6 41.0-54.0 MCV 88.2 fL 80.0-100.0 MCH 30.6 pg 27.0-33.0 MCHC 34.7 g/dL 32.0-37.5 PLT 456 H 150-400 MPV 10.8 fL 9.1-13.0 RDW 13.7 11.5-14.5 Jul 17, 2024 06:55 PM [facility] PHOSPHORUS Specimen Type: PLASMA No comment entered. Ordering Provider: SARAI GOLDEN Report Released Date/Time: Jul 17, 2024 01:54 PM Reporting Lab: [facility] [address] Performing Lab: [facility] [address] PHOSPHORUS 2.9 mg/dL 2.3-4.3 Jul 17, 2024 06:55 PM [facility] BASIC METABOLIC PANEL+MG Specimen Type: PLASMA No comment entered. Ordering Provider: SARAI GOLDEN Report Released Date/Time: Jul 17, 2024 01:54 PM Reporting Lab: [facility] [address] Performing Lab: [facility] [address] CREATININE 1.2 mg/dL 0.7-1.2 UREA NITROGEN 62 mg/dL H 8-26 GLUCOSE 116 mg/dL H 70-100 SODIUM 128 mmol/L L 136-145 POTASSIUM 3.8 mmol/L 3.5-5.1 CHLORIDE 100 mmol/L 98-107 CO2 16 mmol/L L 22-29 CALCIUM 9.3 mg/dL 8.4-10.2 MAGNESIUM 2.1 mg/dL 1.6-2.6 ANION GAP 12 mmol/L 5-15 .CREAT EGFR(CKD-EPI) 64 >60 Jul 17, 2024 07:00 AM [facility] CBC & DIFF Specimen Type: BLOOD Comment: Manual Differential Performed Ordering Provider: SARAI GOLDEN Report Released Date/Time: Jul 16, 2024 04:52 PM Reporting Lab: [facility] [address] Performing Lab: [facility] [address] WBC 18.9 H 4.0-11.0 RBC 5.55 4.60-6.20 [...] MORPHOLOGY PRESENT Jul 17, 2024 07:00 AM [facility] ALBUMIN Specimen Type: PLASMA No comment entered. Ordering Provider: SARAI GOLDEN Report Released Date/Time: Jul 16, 2024 12:12 PM Reporting Lab: [facility] [address] Performing Lab: [facility] [address] ALBUMIN 4.3 g/dL 3.5-5.0 Jul 17, 2024 07:00 AM [facility] COMPREHENSIVE METABOLIC PANEL+MG Specimen Type: PLASMA No comment entered. Ordering Provider: SARAI GOLDEN Report Released Date/Time: Jul 16, 2024 04:52 PM Reporting Lab: [facility] [address] Performing Lab: [facility] [address] CREATININE 1.3 mg/dL H 0.7-1.2 UREA NITROGEN [...] L >60 Jul 16, 2024 07:10 PM [facility] LACTIC ACID Specimen Type: PLASMA No comment entered. Ordering Provider: SARAI GOLDEN Report Released Date/Time: Jul 16, 2024 12:12 PM Reporting Lab: [facility] [address] Performing Lab: [facility] [address] LACTIC ACID 0.9 mmol/L 0.5-2.2 Jul 16, 2024 02:14 PM [facility] MRSA SURVL NARES DNA Specimen Type: NARES No comment entered. Ordering Provider: SARAI GOLDNE Report Released Date/Time: Jul 16, 2024 12:12 PM Reporting Lab: [facility] [address] Performing Lab: [facility] [address] MRSA SURVL NARES DNA NEGATIVE Negative Jul 16, 2024 02:10 PM [facility] LACTIC ACID Specimen Type: PLASMA No comment entered. Ordering Provider: SARAI GOLDEN Report Released Date/Time: Jul 16, 2024 12:12 PM Reporting Lab: [facility] [address] Performing Lab: [facility] [address] LACTIC ACID 0.9 mmol/L 0.5-2.2 Jul 16, 2024 02:08 PM [facility] COMPREHENSIVE METABOLIC PANEL+MG Specimen Type: PLASMA No comment entered. Ordering Provider: SARAI GOLDEN Report Released Date/Time: Jul 16, 2024 12:12 PM Reporting Lab: [facility] [address] Performing Lab: [facility] [address] CREATININE 2.0 mg/dL H 0.7-1.2 UREA NITROGEN [...] L >60 Jul 16, 2024 02:08 PM [facility] CBC & DIFF Specimen Type: BLOOD Comment: Manual Differential Performed Ordering Provider: SARAI GOLDEN Report Released Date/Time: Jul 16, 2024 12:12 PM Reporting Lab: [facility] [address] Performing Lab: [facility] [address] WBC 19.7 H 4.0-11.0 RBC 5.39 4.60-6.20 [...] MORPHOLOGY PRESENT Jul 10, 2024 07:16 AM [facility] PHOSPHORUS Specimen Type: PLASMA No comment entered. Ordering Provider: JUANCARLOS ECHOLS Report Released Date/Time: Jul 09, 2024 12:23 PM Reporting Lab: [facility] [address] Performing Lab: [facility] [address] PHOSPHORUS 3.0 mg/dL 2.3-4.3 Jul 10, 2024 07:16 AM [facility] BASIC METABOLIC PANEL+MG Specimen Type: PLASMA No comment entered. Ordering Provider: JUANCARLOS ECHOLS S Report Released Date/Time: Jul 09, 2024 12:23 PM Reporting Lab: [facility] [address] Performing Lab: [facility] [address] CREATININE 0.7 mg/dL 0.7-1.2 UREA NITROGEN 27 [...] 2024 12:23 PM Reporting Lab: [facility] [address] Performing Lab: [facility] [address] WBC 18.8 H 4.0-11.0 RBC 5.08 4.60-6.20 [...] 2024 06:18 PM Reporting Lab: [facility] [address] Performing Lab: [facility] [address] WBC 15.3 H 4.0-11.0 RBC 4.91 4.60-6.20 [...] 2024 08:41 AM Reporting Lab: [facility] [address] Performing Lab: [facility] [address] URINE COLOR YELLOW SPECIFIC GRAVITY >1.050 H [...] 2024 04:49 PM Reporting Lab: [facility] [address] Performing Lab: [facility] [address] WBC 17.5 H 4.0-11.0 RBC 4.88 4.60-6.20 [...] 2024 04:49 PM Reporting Lab: [facility] [address] Performing Lab: [facility] [address] PHOSPHORUS 2.6 mg/dL 2.3-4.3 Jul 08, 2024 09:54 AM [facility] BASIC METABOLIC PANEL+MG Specimen Type: PLASMA Comment: Specimen received in Lab at: [id number] Ordering Provider: JUANCARLOS ECHOLS Report Released Date/Time: Jul 07, 2024 04:49 PM Reporting Lab: [facility] [address] Performing Lab: [facility] [address] CREATININE 0.9 mg/dL 0.7-1.2 UREA NITROGEN 26 [...] 2024 12:26 PM Reporting Lab: [facility] [address] Performing Lab: [facility] [address] C DIFF TOX B GENE PCR NEGATIVE Negative Jul 07, 2024 07:41 AM [facility] PHOSPHORUS Specimen Type: PLASMA No comment entered. Ordering Provider: JEVON ZAZUETA Report Released Date/Time: Jul 06, 2024 03:44 PM Reporting Lab: [facility] [address] Performing Lab: [facility] [address] PHOSPHORUS 3.1 mg/dL 2.3-4.3 Jul 07, 2024 07:41 AM [facility] BASIC METABOLIC PANEL+MG Specimen Type: PLASMA No comment entered. Ordering Provider: JEVON ZAZUETA Report Released Date/Time: Jul 06, 2024 03:44 PM Reporting Lab: [facility] [address] Performing Lab: [facility] [address] CREATININE 0.9 mg/dL 0.7-1.2 UREA NITROGEN 20 [...] 2024 03:44 PM Reporting Lab: [facility] [address] Performing Lab: [facility] [address] WBC 21.2 H 4.0-11.0 RBC 5.09 4.60-6.20 [...] 2024 01:22 PM Reporting Lab: [facility] [address] Performing Lab: [facility] [address] WBC 18.0 H 4.0-11.0 RBC 4.83 4.60-6.20 [...] 2024 01:22 PM Reporting Lab: [facility] [address] Performing Lab: [facility] [address] PHOSPHORUS 3.6 mg/dL 2.3-4.3 Jul 06, 2024 07:21 AM [facility] BASIC METABOLIC PANEL+MG Specimen Type: PLASMA No comment entered. Ordering Provider: JEVON ZAZUETA Report Released Date/Time: Jul 05, 2024 01:22 PM Reporting Lab: [facility] [address] Performing Lab: [facility] [address] CREATININE 0.7 mg/dL 0.7-1.2 UREA NITROGEN 12 [...] 2024 09:39 AM Reporting Lab: [facility] [address] Performing Lab: [facility] [address] MAGNESIUM 2.0 mg/dL 1.6-2.6 Jul 05, 2024 07:17 AM [facility] PHOSPHORUS Specimen Type: PLASMA No comment entered. Ordering Provider: JUANCARLOS ECHOLS S Report Released Date/Time: Jul 04, 2024 09:39 AM Reporting Lab: [facility] [address] Performing Lab: [facility] [address] PHOSPHORUS 2.0 mg/dL L 2.3-4.3 Jul 05, 2024 07:17 AM [facility] BASIC METABOLIC PANEL+MG Specimen Type: PLASMA No comment entered. Ordering Provider: JUANCARLOS ECHOLS S Report Released Date/Time: Jul 04, 2024 09:39 AM Reporting Lab: [facility] [address] Performing Lab: [facility] [address] CREATININE 0.7 mg/dL 0.7-1.2 UREA NITROGEN 12 [...] 2024 09:39 AM Reporting Lab: [facility] [address] Performing Lab: [facility] [address] WBC 18.3 H 4.0-11.0 RBC 4.49 L [...] 2024 06:31 PM Reporting Lab: [facility] [address] Performing Lab: [facility] [address] CREATININE 0.7 mg/dL 0.7-1.2 UREA NITROGEN 16 [...] 2024 06:31 PM Reporting Lab: [facility] [address] Performing Lab: [facility] [address] PHOSPHORUS 2.8 mg/dL 2.3-4.3 Jul 04, 2024 07:16 AM [facility] CBC Specimen Type: BLOOD No comment entered. Ordering Provider: GABINO CAMERON Report Released Date/Time: Jul 03, 2024 06:31 PM Reporting Lab: [facility] [address] Performing Lab: [facility] [address] WBC 20.6 H 4.0-11.0 RBC 4.63 4.60-6.20 [...] 2024 06:31 PM Reporting Lab: [facility] [address] Performing Lab: [facility] [address] WBC 20.6 H 4.0-11.0 RBC 4.63 4.60-6.20 [...] 2024 06:31 PM Reporting Lab: [facility] [address] Performing Lab: [facility] [address] BNP 292 pg/mL H <99 Jul 03, 2024 10:32 PM [facility] FINGERSTICK GLUCOSE Specimen Type: BLOOD Comment: Save Result Nurse Notified Ordering Provider: KATELYNN PERSON Report Released Date/Time: Jul 03, 2024 10:50 PM Reporting Lab: [facility] [address] Performing Lab: [facility] [address] FINGERSTICK GLUCOSE 126 mg/dL H 70-100 Jul 03, 2024 05:33 PM [facility] FINGERSTICK GLUCOSE Specimen Type: BLOOD Comment: Save Result Nurse Notified Ordering Provider: KATELYNN PERSON Report Released Date/Time: Jul 03, 2024 05:46 PM Reporting Lab: [facility] [address] Performing Lab: [facility] [address] FINGERSTICK GLUCOSE 141 mg/dL H 70-100 Jul 03, 2024 02:31 PM [facility] POC ABG/ELECTROLYTES Specimen Type: ARTERIAL BLOOD Comment: FIO2 = 97% Patient Temp: 36.0 C Sample Type = ARTERIAL Ordering Provider: MAZIN ARREDONDO Report Released Date/Time: Jul 03, 2024 01:48 PM Reporting Lab: [facility] [address] Performing Lab: [facility] [address] POC PH 7.387 7.35-7.45 POC PCO2 34.4 [...] 2024 01:48 PM Reporting Lab: [facility] [address] Performing Lab: [facility] [address] POC PH 7.280 L 7.35-7.45 POC PCO2 [...] 2024 04:01 PM Reporting Lab: [facility] [address] Performing Lab: [facility] [address] URINE COLOR YELLOW SPECIFIC GRAVITY 1.031 1.003-1.03 [...] 2024 03:59 PM Reporting Lab: [facility] [address] Performing Lab: [facility] [address] WBC 15.8 H 4.0-11.0 RBC 5.11 4.60-6.20 [...] 2024 06:07 PM Reporting Lab: [facility] [address] Performing Lab: [facility] [address] CREATININE 0.8 mg/dL 0.7-1.2 UREA NITROGEN 13 [...] 2024 06:07 PM Reporting Lab: [facility] [address] Performing Lab: [facility] [address] WBC 15.5 H 4.0-11.0 RBC 4.93 4.60-6.20 [...] 2024 05:51 PM Reporting Lab: [facility] [address] Performing Lab: [facility] [address] CREATININE 0.7 mg/dL 0.7-1.2 UREA NITROGEN 16 [...] 2024 05:51 PM Reporting Lab: [facility] [address] Performing Lab: [facility] [address] WBC 14.9 H 4.0-11.0 RBC 5.09 4.60-6.20 [...] 2024 05:51 PM Reporting Lab: [facility] [address] Performing Lab: [facility] [address] WBC 16.9 H 4.0-11.0 RBC 5.28 4.60-6.20 [...] 2024 05:51 PM Reporting Lab: [facility] [address] Performing Lab: [facility] [address] CREATININE 0.7 mg/dL 0.7-1.2 UREA NITROGEN 17 [...] 2024 05:45 PM Reporting Lab: [facility] [address] Performing Lab: [facility] [address] URINE COLOR YELLOW SPECIFIC GRAVITY 1.041 H [...] 2024 06:07 PM Reporting Lab: [facility] [address] Performing Lab: [facility] [address] POC CREATININE 1.1 mg/dL 0.6-1.3 Jun 21, 2024 05:30 PM [facility] POC ABG/LACTATE Specimen Type: VENOUS BLOOD No comment entered. Ordering Provider: DELIA MARTINEZ Report Released Date/Time: Jun 21, 2024 06:07 PM Reporting Lab: [facility] [address] Performing Lab: [facility] [address] POC PH 7.470 H 7.31-7.41 POC PCO2 [...] 2024 05:30 PM Reporting Lab: [facility] [address] Performing Lab: [facility] [address] .INR 1.2 H 0.8-1.1 .PT 13.9 s H 9.4-12.5 Jun 21, 2024 05:24 PM [facility] LIPASE Specimen Type: PLASMA No comment entered. Ordering Provider: DELIA MARTINEZ Report Released Date/Time: Jun 21, 2024 05:30 PM Reporting Lab: [facility] [address] Performing Lab: [facility] [address] LIPASE 32 U/L <60 Jun 21, 2024 05:24 PM [facility] EXTRA GOLD GEL TUBE Specimen Type: SERUM No comment entered. Ordering Provider: DELIA MARTINEZ Report Released Date/Time: Jun 21, 2024 05:41 PM Reporting Lab: [facility] [address] Performing Lab: [facility] [address] EXTRA GOLD GEL TUBE RECEIVED Jun 21, 2024 05:24 PM [facility] COMPREHENSIVE METABOLIC PANEL+MG Specimen Type: PLASMA No comment entered. Ordering Provider: DELIA MARTINEZ Report Released Date/Time: Jun 21, 2024 05:30 PM Reporting Lab: [facility] [address] Performing Lab: [facility] [address] CREATININE 0.9 mg/dL 0.7-1.2 UREA NITROGEN 29 [...] 2024 05:30 PM Reporting Lab: [facility] [address] Performing Lab: [facility] [address] WBC 21.3 H 4.0-11.0 RBC 5.48 4.60-6.20 [...] Height Weight Body Mass Index Source Jul 20, 2024 05:52 PM 3 [facility] Jul 20, 2024 05:50 PM 7 [facility] Jul 20, 2024 03:30 PM 98.2 58 135/74 16 98 3 [facility] Jul 20, 2024 11:48 AM 7 [facility] Jul 20, 2024 08:45 AM 98.1 66 127/62 16 99 0 [facility] Social History: Smoking Status [...] 2016 CLINICAL WARNING TIM TERAN CARLOSEDUARDO [facility]O [facility] Radiology Reports: +/- [...] 06:15 PM CHEST 1 VIEW: FLACA WEAVER [id number] -1950 M Exm Date: JUL 18, 2024@18:15 Req Phys: LEISA GOLDEN Pat Loc: 07-18-2024@19:00 Img Loc: MAIN X-RAY Service: PRIMARY CARE [place] [address] (Case [id number] COMPLETE) CHEST 1 VIEW (RAD Detailed) CPT:30161 Proc Modifiers : PORTABLE EXAM Reason for Study: SOB Clinical History: IS NOT under investigation for COVID-19 or is COVID-19 negative 73 yo with SOB Responsible provider name and phone number to notify for critical findings if other than user placing the order and pager listed below: User placing orders pager: [phone] LAST CREATININE 1.2 (07/17/24) Report Status: Verified Date Reported: JUL 18, 2024 Date Verified: JUL 18, 2024 Spa Receptionist E-Sig:/ES/CARLOS A CUNNINGHAM DO Report: EXAMINATION: CHEST 1 VIEW Reason for Study: SOB IS NOT under investigation for COVID-19 or is COVID-19 negative 73 yo with SOB Responsible provider name and phone number to notify for critical findings if other than user placing the order and pager listed below: User placing orders pager: [phone] LAST CREATININE 1.2 (07/17/24) SOB TECHNIQUE: Single [...] Interpreting Staff: CARLOS A CUNNINGHAM DO, RADIOLOGIST (Spa Receptionist) /CARLOS A ROWELL [facility] Jul 16, 2024 07:49 AM [facility] CT ABDOMEN/PELVIS: FLACA WEAVER [id number] -1950 M Exm Date: JUL 16, 2024@07:49 Req Phys: JATINDER CABRERA Loc: 3ES/07-17-2024@09:02 Img Loc: OUTSOURCE CT Service: Unknown (Case [id number] COMPLETE) NON [place] CT ABDOMEN/PELVIS (CT Detailed) CPT:40040 Reason for Study: outside study Clinical History: [...] BY: / *ELECTRONICALLY FILED* [facility] Jul 13, 2024 09:41 AM [facility] CT ABDOMEN/PELVIS: FLACA WEAVER [id number] -1950 M Exm Date: JUL 13, 2024@09:41 Req Phys: JATINDER CABRERA Amanda Loc: 3ES07-17-2024@09:08 Img Loc: OUTSOURCE CT Service: Unknown (Case [id number] COMPLETE) NON [place] CT ABDOMEN/PELVIS (CT Detailed) CPT:63534 Reason for Study: outside study Clinical History: [...] BY: / *ELECTRONICALLY FILED* [facility] Jul 08, 2024 10:09 AM CHEST 2 VIEWS PA AND LAT: FLACA WEAVER [id number] -1950 M Exm Date: JUL 08, 2024@10:09 Req Phys: KATELYNN PERSON Loc: 2KG07-08-2024@11:49 Img Loc: MAIN X-RAY Service: [facility] [place] [address] (Case 24 COMPLETE) CHEST 2 VIEWS PA AND LAT (RAD Detailed) CPT:25944 Reason for Study: Uptrending WBC, POD 5 [...] 08, 2024 Date Verified: JUL 08, 2024 Spa Receptionist E-Sig: Report: CHEST 2 VIEWS PA AND [...] cardiopulmonary disease. READING PHYSICIAN: Sarbjit Vaughn M.D. -[phone] 07/08/2024 12:[address] [facility] National Teleradiology Program [phone] (For Medical Practitioner Use Only) Attention Patients / Veterans: If you have questions or concerns about these test results, please contact your ordering provider or primary care team. Primary Interpreting Staff: RADIOLOGY,OUTSIDE SERVICE, Staff Physician / RADIOLOGY,OUTSIDE SERVICE [facility] Jul 08, 2024 10:[address] (AP) ABDOMEN/PELVIS W CONTRAST: FLACA WEAVER [id number] -1950 M Exm Date: JUL 08, 2024@10:00 Req Phys: KATELYNN PERSON [facility] Loc: [facility]/07-08-2024@12:07 Im Loc: CT IMAGING Service: [place] [address] (Case 22 COMPLETE) CT (AP) ABDOMEN/PELVIS W CONTRAST(CT Detailed) CPT:94886 Contrast Media : Non-ionic Iodinated Reason for [...] PLASMA .CREAT EGFR(CKD-E >90 Ref: >=60 Allergies: ([place] only) TERAZOSIN (Mar 13, 2015) Report Status: Verified Date Reported: JUL 08, 2024 Date Verified: JUL 08, 2024 Spa Receptionist E-Sig: Report: CT (AP) ABDOMEN/PELVIS W CONTRAST [...] as noted above READING PHYSICIAN: Celestino Blanc -[id number] 07/08/2024 13:[address] [facility] National Teleradiology Program [phone] (For Medical Practitioner Use Only) Attention Patients / Veterans: If you have questions or concerns about these test results, please contact your ordering provider or primary care team. Primary Interpreting Staff: RADIOLOGY,OUTSIDE SERVICE, Staff Physician / RADIOLOGY,OUTSIDE SERVICE [facility] Jun 22, 2024 11:49 AM ABSCESS DRAIN PLACEMENT PERITONEAL (P): FLACA WEAVER [id number] -1950 M Exm Date: JUN 22, 2024@11:49 Req Phys: ANGELA HOLDEN Loc: [facility]/06-22-2024@17:14 Img Loc: INTERVENTIONAL RADIOLOGY Service: [facility] [address] (Case [id number] COMPLETE) IR PERITONEAL/RETROPERITONEAL PER(ANI Detailed) CPT:95367 Reason for Study: diverticulitis with abscess (Case 3570 COMPLETE) IR MOD SEDATION 10-22 MIN (ANI Detailed) CPT:72763 Clinical History: IS NOT under investigation for COVID-19 or is COVID-19 negative 73 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 please place abscess drain. Contact number for responsible provider who can be reached for any questions or notifications of critical findings: [phone] n/a LAST CREATININE 0.9 (06/21/24) Report Status: Verified Date Reported: JUN 22, 2024 Date Verified: JUN 22, 2024 Spa Receptionist E-Sig:/ES/LISA PENDLETON MD Report: PROCEDURES: Placement of [...] obtained. A pre-procedural Time-Out was performed per [facility] policy. The patient was placed in the supine position on the CT table. Preprocedural scan performed. The suprapubic region/lower abdominal wall was sterilely prepped and draped in the usual fashion.1% lidocaine without epinephrine was used for local anesthesia. Using real-time CT fluoroscopy, a 5 [place] Waygoesis catheter was advanced into the collection in [...] Primary Interpreting Staff: LISA PENDLETON MD, RADIOLOGIST (Spa Receptionist) /JRLISA [facility] Jun 22, 2024 11:[address] NEEDLE PLACEMENT (P): FLACA WEAVER [id number] -1950 M Exm Date: JUN 22, 2024@11:48 Req Phys: ANGELA HOLDEN Loc: 2K/06-22-2024@17:14 Img Loc: CT IMAGING Service: [facility] [place] [address] (Case [id number] COMPLETE) CT SCAN FOR NEEDLE PLACEMENT (CT Detailed) CPT:74533 Reason for Study: l pelvic abscess drain Clinical History: Report Status: Verified Date Reported: JUN 22, 2024 Date Verified: JUN 22, 2024 Spa Receptionist E-Sig:/ES/LISA PENDLETON MD Report: PROCEDURES: Placement of [...] obtained. A pre-procedural Time-Out was performed per [facility] policy. The patient was placed in the supine position on the CT table. Preprocedural scan performed. The suprapubic region/lower abdominal wall was sterilely prepped and draped in the usual fashion.1% lidocaine without epinephrine was used for local anesthesia. Using real-time CT fluoroscopy, a 5 Danish Waygoesis catheter was advanced into the collection in [...] Primary Interpreting Staff: LISA PENDLETON MD, RADIOLOGIST (Spa Receptionist) /JRT LISA PENDLETON [facility] Jun 21, 2024 06:[address] (AP) ABDOMEN/PELVIS (P): FLACA WEAVER [id number] -1950 M Exm Date: JUN 21, 2024@18:09 Req Phys: DELIA MARTINEZ Loc: [facility] EMERGENCY DEPT WALK-IN (Re Img Loc: CT IMAGING Service: [place] [address] (Case [id number] COMPLETE) CT (AP) ABDOMEN/PELVIS W CONTRAST(CT Detailed) CPT:05285 Contrast Media : Non-ionic Iodinated Reason for [...] PLASMA .CREAT EGFR(CKD-E >90 Ref: >=60 Allergies: ([place] only) TERAZOSIN (Mar 13, 2015) Defer to [...] 21, 2024 Date Verified: JUN 21, 2024 Spa Receptionist E-Sig:/ES/CARLOS A CUNNINGHAM DO Report: EXAMINATION: CT [...] Interpreting Staff: CARLOS A CUNNINGHAM DO, RADIOLOGIST (Spa Receptionist) /CARLOS A ROWELL [facility] Pathology [...] PORT: Reporting Lab: [facility] [CLIA# [id number]] [place] [address] Accession [UID]: [id number] [[id number]] Received: Jul 16, 2024@14:41 Collection sample: BLOOD Collection date: Jul 16, 2024 14:07 Provider: LEISA GOLDEN Comment on specimen: Manish WE[place]OOK, RECEIVED 2 BLOOD CULTURE BOTTLES Test(s) ordered: CULTURE & SUSCEPTIBILITY...... completed: Jul 22, 2024 * BACTERIOLOGY FINAL REPORT => Jul 22, 2024 13:39 TECH CODE: [id number] CULTURE RESULTS: NO GROWTH 5 DAYS Bacteriology Remark(s): THIS REPORT IS FINAL =--=--=--=--=--=--=--=--=--= --=--=--=--=--=--=--=--=--=- -=--=--=--=--=--=--=-- Performing Laboratory: Bacteriology Report Performed By: [facility] [CLIA# [id number]] [place] [address] [facility] Jul 16, 2024 01:54 PM LR MICROBIOLOGY RE PORT: Reporting Lab: [facility] [CLIA# [id number]] [place] [address] Accession [UID]: [id number] [[id number]] Received: Jul 16, 2024@14:41 Collection sample: BLOOD Collection date: Jul 16, 2024 13:54 Provider: LEISA GOLDEN Comment on specimen: L AC, RECEIVED 2 BLOOD CULTURE BOTTLES Test(s) ordered: CULTURE & SUSCEPTIBILITY...... completed: Jul 22, 2024 * BACTERIOLOGY FINAL REPORT => Jul 22, 2024 13:39 TECH CODE: [id number] CULTURE RESULTS: NO GROWTH 5 DAYS Bacteriology Remark(s): THIS REPORT IS FINAL =--=--=--=--=--=--=--=--=--= --=--=--=--=--=--=--=--=--=- -=--=--=--=--=--=--=-- Performing Laboratory: Bacteriology Report Performed By: [facility] [CLIA# [id number]] [place] [address] [facility] Jul 03, 2024 05:59 AM LR SURGICAL PATHOL OGY REPORT: LOCAL TITLE: LR SURGICAL PATHOLOGY REPORT STANDARD TITLE: PATHOLOGY REPORT DATE OF NOTE: JUL 06, 2024@10:40:48 ENTRY DATE: JUL 06, 2024@10:40:48 AUTHOR: EDUARDO PALOMARES EXP COSIGNER: URGENCY: STATUS: COMPLETED $APHDR Reporting Lab: [facility] [CLIA# [id number]] [place] [address] - - - - - - - [...] - PATHOLOGY REPORT Accession No. [id number] - - - - - - - [...] - PATHOLOGY REPORT Accession No. [id number] - - - - - - - [...] circumferential surgical margin, en face; E-F: Sales Department Manager diverticula; G: Sales Department Manager section of mesentery; H: Random outbound telemarketing representative section of additional adipose tissue fragment. [...] One colonic tissue ring, bisected transversely. SS. (D)[facility] [place] MICROSCOPIC DESCRIPTION: Microscopic examination performed. DIAGNOSIS: 1. Colon, sigmoid, sigmoidectomy-- - Diverticulosis with perforation and focal abscess formation 2. Colon, anastomotic rings, excision-- - Viable colonic mucosa without diagnostic abnormality /es/ EDUARDO PALOMARES MD STAFF PATHOLOGIST Signed Jul 06, 2024@10:40 Performing Laboratory: Surgical Pathology Report Performed By: [facility] [CLIA# [id number]] [place] [address] $FTR - - - - - - [...] - - FLACA WEAVER STANDARD FORM 515 ID:[id number] SEX:M :1950 AGE: 73 LOC:04121 ADM:Jun DX:DIVERTICULITIS PCP: Jatinder Cabrera /alexi/ EDUARDO PALOMARES MD STAFF PATHOLOGIST Signed: 07/06/2024 10:40 EDUARDO PALOMARES [facility] Jun 22, 2024 01:15 PM LR MICROBIOLOGY RE PORT: Reporting Lab: [facility] [CLIA# [id number]] [place] [address] Accession [UID]: [id number] [[id number]] Received: Jun 22, 2024@13:38 Collection sample: FLUID Collection date: Jun 22, 2024 13:15 Provider: ANGELA HOLDEN Comment on specimen: LLQ ABSCESS, RECEIVED IN ANAEROBIC TRANSPORT VIAL Test(s) ordered: GRAM STAIN.................... completed: Jun 22, 2024 15:03 CULTURE & SUSCEPTIBILITY...... completed: Jun 25, 2024 * BACTERIOLOGY FINAL REPORT => Jun 25, 2024 10:56 TECH CODE: [id number] GRAM STAIN: DIRECT SMEAR of specimen before [...] Report Performed By: [facility] [CLIA# [id number]] [place] [address] [facility] Jun 22, 2024 01:15 PM LR MICROBIOLOGY RE PORT: Reporting Lab: [facility] [CLIA# [id number]] [place] [address] Accession [UID]: [id number] [[id number]] Received: Jun 22, 2024@13:38 Collection sample: FLUID Collection date: Jun 22, 2024 13:15 Provider: ANGELA HOLDEN Comment on specimen: LLQ ABSCESS, RECEIVED IN ANAEROBIC TRANSPORT VIAL Test(s) ordered: ANAEROBIC CULTURE............. completed: Jun 28, 2024 * BACTERIOLOGY FINAL REPORT => Jun 28, 2024 10:08 TECH CODE: [id number] CULTURE RESULTS: HEAVY GROWTH MIXED ANAEROBES Comment: [...] Report Performed By: [facility] [CLIA# [id number]] [place] [address] [facility] Jun 21, 2024 06:12 PM LR MICROBIOLOGY RE PORT: Reporting Lab: [facility] [CLIA# [id number]] [place] [address] Accession [UID]: [id number] [[id number]] Received: Jun 21, 2024@18:12 Collection sample: BLOOD [...] Report Performed By: [facility] [CLIA# [id number]] [place] [address] [facility] Jun 21, 2024 06:11 PM LR MICROBIOLOGY RE PORT: Reporting Lab: [facility] [CLIA# [id number]] [place] [address] Accession [UID]: [id number] [[id number]] Received: Jun 21, 2024@18:11 Collection sample: BLOOD Collection date: Jun 21, 2024 18:11 Provider: DELIA MARTINEZ Comment on specimen: [facility], RECEIVED 2 BLOOD CULTURE BOTTLES Test(s) ordered: CULTURE & SUSCEPTIBILITY...... completed: Jun 27, 2024 * BACTERIOLOGY FINAL REPORT => Jun 27, 2024 14:14 TECH CODE: [id number] CULTURE RESULTS: NO GROWTH 5 DAYS Bacteriology Remark(s): THIS REPORT IS FINAL =--=--=--=--=--=--=--=--=--= --=--=--=--=--=--=--=--=--=- -=--=--=--=--=--=--=-- Performing Laboratory: Bacteriology Report Performed By: [facility] [CLIA# [id number]] [place] [address] [facility] Encounter Notes: All associated encounter notes This section contains the clinical notes associated to the Encounter. Date/Time Encounter Note(s) Provider Source Jul 20, 2024 01:00 AM CRITICAL CARE UNIT NOTE: LOCAL TITLE: ICCA INPATIENT FLOWSHEET STANDARD TITLE: CRITICAL CARE UNIT NOTE DATE OF NOTE: JUL 20, 2024@01:00 ENTRY DATE: JUL 21, 2024@14:33:30 AUTHOR: KELLY WINKLER EXP COSIGNER: URGENCY: STATUS: COMPLETED This is a place aranda only. Please see Kidamom to view document. /es/ CIS-ARZyga SYSTEM ICU DOCUMENT IMPORT Signed: 07/21/2024 14:33 PETERSONTake the Interview-CHRISTOPHER [facility] Jul 20, 2024 01:00 AM CRITICAL CARE UNIT NOTE: LOCAL TITLE: ICCA RESPIRATORY THERAPY FLOWSHEET STANDARD TITLE: CRITICAL CARE UNIT NOTE DATE OF NOTE: JUL 20, 2024@01:00 ENTRY DATE: JUL 21, 2024@15:06:14 AUTHOR: PETERSON,DUDLEY-ARMaeve EXP COSIGNER: URGENCY: STATUS: COMPLETED This is a place aranda only. Please see CodoonTA Diditz to view document. /es/ CIS-ARK SYSTEM ICU DOCUMENT IMPORT Signed: 07/21/2024 15:06 SYSTEMTake the Interview-ARK [facility]
[2024-08-01 07:52] LABS: Albumin* 4.2 g/dL (3.3-5.0); Chloride* 101 mmol/L (96-114)
--- OUTSIDE RECORDS SUMMARY | 2024-08-01 07:52 | XMS_ITS | Encounter Summary ---
Author Name [facility] [facility] [place] Address [address] [place] [address] Care Team Providers Care Coo Name Role Phone JATINDER CABRERA Primary Care [...] PART A Sep 29, 2016 PART A [phone] JUDY WEAVER PATIENT Selected Encounter This section includes the information on record at [place] for the Encounter. Date/Time Encounter Type Encounter Description Reason Pro vider Source Jul 30, 2024 09:01 AM Outpatient Encounter [facility] Encounter Template Text not used [...] Test Type Test Details Facility Name Jun 21, 2024 05:45 PM Laboratory - Blood Bank Order TYPE & SCREEN - LAB BLOOD [facility] Jul 03, 2024 12:00 AM Laboratory - Blood Bank Order TYPE & SCREEN - LAB BLOOD [facility] Jul 16, 2024 12:00 AM Laboratory - Chemi stry Order CBC BLOOD SP ONCE [facility] Jul 17, 2024 12:00 AM Laboratory - Chemi stry Order BASIC METABOLIC PANEL+MG PLASMA SP ONCE [facility] Lab Results: +/- 30 days of the [...] Range Comment Jul 21, 2024 10:38 AM [facility] BASIC METABOLIC PANEL+MG Specimen Type: PLASMA No comment entered. Ordering Provider: SARAI GOLDEN Report Released Date/Time: Jul 20, 2024 06:50 PM Reporting Lab: [facility] [phone] Performing Lab: [facility] [address] CREATININE 0.8 mg/dL 0.7-1.2 UREA NITROGEN 31 mg/dL H 8-26 GLUCOSE 120 mg/dL H 70-100 SODIUM 125 mmol/L L 136-145 POTASSIUM 4.4 mmol/L 3.5-5.1 CHLORIDE 100 mmol/L 98-107 CO2 17 mmol/L L 22-29 CALCIUM 9.6 mg/dL 8.4-10.2 MAGNESIUM 1.9 mg/dL 1.6-2.6 ANION GAP 8 mmol/L 5-15 .CREAT EGFR(CKD-EPI) >90 >60 Jul 21, 2024 10:38 AM [facility] CBC Specimen Type: BLOOD No comment entered. Ordering Provider: SARAI GOLDEN Report Released Date/Time: Jul 20, 2024 06:50 PM Reporting Lab: [facility] [phone] Performing Lab: [facility] [address] WBC 16.0 H 4.0-11.0 RBC 5.16 4.60-6.20 HGB 15.8 g/dL 13.5-17.9 HCT 45.5 41.0-54.0 MCV 88.2 fL 80.0-100.0 MCH 30.6 pg 27.0-33.0 MCHC 34.7 g/dL 32.0-37.5 PLT 428 H 150-400 MPV 10.8 fL 9.1-13.0 RDW 13.6 11.5-14.5 Jul 20, 2024 01:00 PM [facility] SODIUM,URINE RANDOM Specimen Type: URINE No comment entered. Ordering Provider: SARAI GOLDEN Report Released Date/Time: Jul 20, 2024 08:22 AM Reporting Lab: [facility] [phone] Performing Lab: [facility] [address] SODIUM,URINE RANDOM <20 mmol/L Jul 20, 2024 01:00 PM [facility] OSMOLALITY,URINE Specimen Type: URINE No comment entered. Ordering Provider: SARAI GOLDEN Report Released Date/Time: Jul 20, 2024 08:22 AM Reporting Lab: [facility] [address] Performing Lab: [facility] [phone] OSMOLALITY,URIN E 648 mosm/kg 500-800 Jul 20, 2024 06:45 AM [facility] BASIC METABOLIC PANEL+MG Specimen Type: PLASMA No comment entered. Ordering Provider: SARAI GOLDEN Report Released Date/Time: Jul 19, 2024 06:13 PM Reporting Lab: [facility] [address] Performing Lab: [facility] [phone] CREATININE 0.8 mg/dL 0.7-1.2 UREA NITROGEN 36 mg/dL H 8-26 GLUCOSE 111 mg/dL H 70-100 SODIUM 121 mmol/L L 136-145 POTASSIUM 4.1 mmol/L 3.5-5.1 CHLORIDE 99 mmol/L 98-107 CO2 14 mmol/L L 22-29 CALCIUM 9.5 mg/dL 8.4-10.2 MAGNESIUM 1.8 mg/dL 1.6-2.6 ANION GAP 8 mmol/L 5-15 .CREAT EGFR(CKD-EPI) >90 >60 Jul 20, 2024 06:43 AM [facility] CBC & DIFF Specimen Type: BLOOD Comment: Automated Differential Performed Ordering Provider: SARAI GOLDEN Report Released Date/Time: Jul 19, 2024 06:13 PM Reporting Lab: [facility] [phone] Performing Lab: [facility] [address] WBC 16.6 H 4.0-11.0 RBC 4.96 4.60-6.20 [...] H 0.0-0.1 Jul 20, 2024 05:30 AM [facility] OSMOLALITY,SERUM Specimen Type: SERUM No comment entered. Ordering Provider: SARAI GOLDEN Report Released Date/Time: Jul 20, 2024 09:47 AM Reporting Lab: [facility] [address] Performing Lab: [facility] [address] OSMOLALITY,SERU M 266 mosm/kg L 276-305 Jul 19, 2024 08:57 AM [facility] BASIC METABOLIC PANEL+MG Specimen Type: PLASMA No comment entered. Ordering Provider: SARAI GOLDEN Report Released Date/Time: Jul 18, 2024 10:24 PM Reporting Lab: [facility] [address] Performing Lab: [facility] [address] CREATININE 1.0 mg/dL 0.7-1.2 UREA NITROGEN 40 mg/dL H 8-26 GLUCOSE 104 mg/dL H 70-100 SODIUM 129 mmol/L L 136-145 POTASSIUM 3.3 mmol/L L 3.5-5.1 CHLORIDE 104 mmol/L 98-107 CO2 16 mmol/L L 22-29 CALCIUM 8.0 mg/dL L 8.4-10.2 MAGNESIUM 1.7 mg/dL 1.6-2.6 ANION GAP 9 mmol/L 5-15 .CREAT EGFR(CKD-EPI) 80 >60 Jul 19, 2024 08:57 AM [facility] CBC Specimen Type: BLOOD No comment entered. Ordering Provider: SARAI GOLDEN Report Released Date/Time: Jul 18, 2024 10:24 PM Reporting Lab: [facility] [address] Performing Lab: [facility] [address] WBC 17.3 H 4.0-11.0 RBC 4.83 4.60-6.20 HGB 14.8 g/dL 13.5-17.9 HCT 42.6 41.0-54.0 MCV 88.2 fL 80.0-100.0 MCH 30.6 pg 27.0-33.0 MCHC 34.7 g/dL 32.0-37.5 PLT 456 H 150-400 MPV 10.8 fL 9.1-13.0 RDW 13.7 11.5-14.5 Jul 17, 2024 06:55 PM [facility] PHOSPHORUS Specimen Type: PLASMA No comment entered. Ordering Provider: SARAI GOLDEN Report Released Date/Time: Jul 17, 2024 01:54 PM Reporting Lab: [facility] [address] Performing Lab: [facility] [address] PHOSPHORUS 2.9 mg/dL 2.3-4.3 Jul 17, 2024 06:55 PM [facility] BASIC METABOLIC PANEL+MG Specimen Type: PLASMA No comment entered. Ordering Provider: SARAI GOLDEN Report Released Date/Time: Jul 17, 2024 01:54 PM Reporting Lab: [facility] [address] Performing Lab: [facility] [address] CREATININE 1.2 mg/dL 0.7-1.2 UREA NITROGEN 62 mg/dL H 8-26 GLUCOSE 116 mg/dL H 70-100 SODIUM 128 mmol/L L 136-145 POTASSIUM 3.8 mmol/L 3.5-5.1 CHLORIDE 100 mmol/L 98-107 CO2 16 mmol/L L 22-29 CALCIUM 9.3 mg/dL 8.4-10.2 MAGNESIUM 2.1 mg/dL 1.6-2.6 ANION GAP 12 mmol/L 5-15 .CREAT EGFR(CKD-EPI) 64 >60 Jul 17, 2024 07:00 AM [facility] CBC & DIFF Specimen Type: BLOOD Comment: Manual Differential Performed Ordering Provider: SARAI GOLDEN Report Released Date/Time: Jul 16, 2024 04:52 PM Reporting Lab: [facility] [address] Performing Lab: [facility] [address] WBC 18.9 H 4.0-11.0 RBC 5.55 4.60-6.20 [...] MORPHOLOGY PRESENT Jul 17, 2024 07:00 AM [facility] ALBUMIN Specimen Type: PLASMA No comment entered. Ordering Provider: SARAI GOLDEN Report Released Date/Time: Jul 16, 2024 12:12 PM Reporting Lab: [facility] [address] Performing Lab: [facility] [address] ALBUMIN 4.3 g/dL 3.5-5.0 Jul 17, 2024 07:00 AM [facility] COMPREHENSIVE METABOLIC PANEL+MG Specimen Type: PLASMA No comment entered. Ordering Provider: SARAI GOLDEN Report Released Date/Time: Jul 16, 2024 04:52 PM Reporting Lab: [facility] [address] Performing Lab: [facility] [address] CREATININE 1.3 mg/dL H 0.7-1.2 UREA NITROGEN [...] L >60 Jul 16, 2024 07:10 PM [facility] LACTIC ACID Specimen Type: PLASMA No comment entered. Ordering Provider: SARAI GOLDEN Report Released Date/Time: Jul 16, 2024 12:12 PM Reporting Lab: [facility] [phone] Performing Lab: [facility] [address] LACTIC ACID 0.9 mmol/L 0.5-2.2 Jul 16, 2024 02:14 PM [facility] MRSA SURVL NARES DNA Specimen Type: NARES No comment entered. Ordering Provider: SARAI GOLDEN Report Released Date/Time: Jul 16, 2024 12:12 PM Reporting Lab: [facility] [address] Performing Lab: [facility] [address] MRSA SURVL NARES DNA NEGATIVE Negative Jul 16, 2024 02:10 PM [facility] LACTIC ACID Specimen Type: PLASMA No comment entered. Ordering Provider: SARAI GOLDEN Report Released Date/Time: Jul 16, 2024 12:12 PM Reporting Lab: [facility] [address] Performing Lab: [facility] [address] LACTIC ACID 0.9 mmol/L 0.5-2.2 Jul 16, 2024 02:08 PM [facility] COMPREHENSIVE METABOLIC PANEL+MG Specimen Type: PLASMA No comment entered. Ordering Provider: SARAI GOLDEN Report Released Date/Time: Jul 16, 2024 12:12 PM Reporting Lab: [facility] [address] Performing Lab: [facility] [address] CREATININE 2.0 mg/dL H 0.7-1.2 UREA NITROGEN [...] L >60 Jul 16, 2024 02:08 PM [facility] CBC & DIFF Specimen Type: BLOOD Comment: Manual Differential Performed Ordering Provider: SARAI GOLDEN Report Released Date/Time: Jul 16, 2024 12:12 PM Reporting Lab: [facility] [address] Performing Lab: [facility] [address] WBC 19.7 H 4.0-11.0 RBC 5.39 4.60-6.20 [...] MORPHOLOGY PRESENT Jul 10, 2024 07:16 AM [facility] PHOSPHORUS Specimen Type: PLASMA No comment entered. Ordering Provider: UJANCARLOS ECHOLS S Report Released Date/Time: Jul 09, 2024 12:23 PM Reporting Lab: [facility] [address] Performing Lab: [facility] [address] PHOSPHORUS 3.0 mg/dL 2.3-4.3 Jul 10, 2024 07:16 AM [facility] BASIC METABOLIC PANEL+MG Specimen Type: PLASMA No comment entered. Ordering Provider: JUANCARLOS ECHOLS S Report Released Date/Time: Jul 09, 2024 12:23 PM Reporting Lab: [facility] [address] Performing Lab: [facility] [address] CREATININE 0.7 mg/dL 0.7-1.2 UREA NITROGEN 27 mg/dL H 8-26 GLUCOSE 104 mg/dL H 70-100 SODIUM 133 mmol/L L 136-145 POTASSIUM 4.3 mmol/L 3.5-5.1 CHLORIDE 102 mmol/L 98-107 CO2 19 mmol/L L 22-29 CALCIUM 10.1 mg/dL 8.4-10.2 MAGNESIUM 1.9 mg/dL 1.6-2.6 ANION GAP 12 mmol/L 5-15 .CREAT EGFR(CKD-EPI) >90 >60 Jul 10, 2024 07:15 AM [facility] CBC Specimen Type: BLOOD No comment entered. Ordering Provider: JUANCARLOS ECHOLS Report Released Date/Time: Jul 09, 2024 12:23 PM Reporting Lab: [facility] [address] Performing Lab: [facility] [address] WBC 18.8 H 4.0-11.0 RBC 5.08 4.60-6.20 HGB 15.9 g/dL 13.5-17.9 HCT 46.8 41.0-54.0 MCV 92.1 fL 80.0-100.0 MCH 31.3 pg 27.0-33.0 MCHC 34.0 g/dL 32.0-37.5 PLT 479 H 150-400 MPV 10.2 fL 9.1-13.0 RDW 13.7 11.5-14.5 Jul 09, 2024 07:08 AM [facility] CBC Specimen Type: BLOOD No comment entered. Ordering Provider: QUYNH WEISS Report Released Date/Time: Jul 08, 2024 06:18 PM Reporting Lab: [facility] [address] Performing Lab: [facility] [address] WBC 15.3 H 4.0-11.0 RBC 4.91 4.60-6.20 HGB 15.1 g/dL 13.5-17.9 HCT 45.7 41.0-54.0 MCV 93.1 fL 80.0-100.0 MCH 30.8 pg 27.0-33.0 MCHC 33.0 g/dL 32.0-37.5 PLT 443 H 150-400 MPV 10.0 fL 9.1-13.0 RDW 13.5 11.5-14.5 Jul 08, 2024 10:50 AM [facility] URINALYSIS Specimen Type: URINE No comment entered. Ordering Provider: KATELYNN PERSON Report Released Date/Time: Jul 08, 2024 08:41 AM Reporting Lab: [facility] [address] Performing Lab: [facility] [address] URINE COLOR YELLOW SPECIFIC GRAVITY >1.050 H [...] NEGATIVE NEGATIVE Jul 08, 2024 09:54 AM [facility] CBC Specimen Type: BLOOD Comment: Specimen received in Lab at: [id number] Ordering Provider: JUANCARLOS ECHOLS Report Released Date/Time: Jul 07, 2024 04:49 PM Reporting Lab: [facility] [address] Performing Lab: [facility] [address] WBC 17.5 H 4.0-11.0 RBC 4.88 4.60-6.20 HGB 14.9 g/dL 13.5-17.9 HCT 45.7 41.0-54.0 MCV 93.6 fL 80.0-100.0 MCH 30.5 pg 27.0-33.0 MCHC 32.6 g/dL 32.0-37.5 PLT 472 H 150-400 MPV 10.2 fL 9.1-13.0 RDW 13.7 11.5-14.5 Jul 08, 2024 09:54 AM [facility] PHOSPHORUS Specimen Type: PLASMA Comment: Specimen received in Lab at: [id number] Ordering Provider: JUANCARLOS ECHOLS Report Released Date/Time: Jul 07, 2024 04:49 PM Reporting Lab: [facility] [address] Performing Lab: [facility] [address] PHOSPHORUS 2.6 mg/dL 2.3-4.3 Jul 08, 2024 09:54 AM [facility] BASIC METABOLIC PANEL+MG Specimen Type: PLASMA Comment: Specimen received in Lab at: [id number] Ordering Provider: JUANCARLOS ECHOLS Report Released Date/Time: Jul 07, 2024 04:49 PM Reporting Lab: [facility] [address] Performing Lab: [facility] [address] CREATININE 0.9 mg/dL 0.7-1.2 UREA NITROGEN 26 mg/dL 8-26 GLUCOSE 128 mg/dL H 70-100 SODIUM 134 mmol/L L 136-145 POTASSIUM 3.4 mmol/L L 3.5-5.1 CHLORIDE 100 mmol/L 98-107 CO2 24 mmol/L 22-29 CALCIUM 9.8 mg/dL 8.4-10.2 MAGNESIUM 1.8 mg/dL 1.6-2.6 ANION GAP 10 mmol/L 5-15 .CREAT EGFR(CKD-EPI) >90 >60 Jul 07, 2024 02:00 PM [facility] C DIFF PANEL Specimen Type: FECES No comment entered. Ordering Provider: JEVON ZAZUETA Report Released Date/Time: Jul 07, 2024 12:26 PM Reporting Lab: [facility] [address] Performing Lab: [facility] [address] C DIFF TOX B GENE PCR NEGATIVE Negative Jul 07, 2024 07:41 AM [facility] PHOSPHORUS Specimen Type: PLASMA No comment entered. Ordering Provider: JEVON ZAZUETA Report Released Date/Time: Jul 06, 2024 03:44 PM Reporting Lab: [facility] [address] Performing Lab: [facility] [address] PHOSPHORUS 3.1 mg/dL 2.3-4.3 Jul 07, 2024 07:41 AM [facility] BASIC METABOLIC PANEL+MG Specimen Type: PLASMA No comment entered. Ordering Provider: JEVON ZAZUETA Report Released Date/Time: Jul 06, 2024 03:44 PM Reporting Lab: [facility] [address] Performing Lab: [facility] [address] CREATININE 0.9 mg/dL 0.7-1.2 UREA NITROGEN 20 mg/dL 8-26 GLUCOSE 157 mg/dL H 70-100 SODIUM 136 mmol/L 136-145 POTASSIUM 3.7 mmol/L 3.5-5.1 CHLORIDE 102 mmol/L 98-107 CO2 21 mmol/L L 22-29 CALCIUM 9.8 mg/dL 8.4-10.2 MAGNESIUM 1.9 mg/dL 1.6-2.6 ANION GAP 13 mmol/L 5-15 .CREAT EGFR(CKD-EPI) >90 >60 Jul 07, 2024 07:40 AM [facility] CBC Specimen Type: BLOOD No comment entered. Ordering Provider: JEVON ZAZUETA Report Released Date/Time: Jul 06, 2024 03:44 PM Reporting Lab: [facility] [address] Performing Lab: [facility] [address] WBC 21.2 H 4.0-11.0 RBC 5.09 4.60-6.20 HGB 15.9 g/dL 13.5-17.9 HCT 48.3 41.0-54.0 MCV 94.9 fL 80.0-100.0 MCH 31.2 pg 27.0-33.0 MCHC 32.9 g/dL 32.0-37.5 PLT 500 H 150-400 MPV 10.3 fL 9.1-13.0 RDW 13.6 11.5-14.5 Jul 06, 2024 07:21 AM [facility] CBC Specimen Type: BLOOD No comment entered. Ordering Provider: JEVON ZAZUETA Report Released Date/Time: Jul 05, 2024 01:22 PM Reporting Lab: [facility] [address] Performing Lab: [facility] [address] WBC 18.0 H 4.0-11.0 RBC 4.83 4.60-6.20 HGB 14.6 g/dL 13.5-17.9 HCT 45.5 41.0-54.0 MCV 94.2 fL 80.0-100.0 MCH 30.2 pg 27.0-33.0 MCHC 32.1 g/dL 32.0-37.5 PLT 368 150-400 MPV 10.4 fL 9.1-13.0 RDW 13.6 11.5-14.5 Jul 06, 2024 07:21 AM [facility] PHOSPHORUS Specimen Type: PLASMA No comment entered. Ordering Provider: JEVON ZAZUETA Report Released Date/Time: Jul 05, 2024 01:22 PM Reporting Lab: [facility] [address] Performing Lab: [facility] [address] PHOSPHORUS 3.6 mg/dL 2.3-4.3 Jul 06, 2024 07:21 AM [facility] BASIC METABOLIC PANEL+MG Specimen Type: PLASMA No comment entered. Ordering Provider: JEVON ZAZUETA Report Released Date/Time: Jul 05, 2024 01:22 PM Reporting Lab: [facility] [address] Performing Lab: [facility] [address] CREATININE 0.7 mg/dL 0.7-1.2 UREA NITROGEN 12 mg/dL 8-26 GLUCOSE 108 mg/dL H 70-100 SODIUM 138 mmol/L 136-145 POTASSIUM 3.4 mmol/L L 3.5-5.1 CHLORIDE 104 mmol/L 98-107 CO2 20 mmol/L L 22-29 CALCIUM 9.3 mg/dL 8.4-10.2 MAGNESIUM 1.9 mg/dL 1.6-2.6 ANION GAP 14 mmol/L 5-15 .CREAT EGFR(CKD-EPI) >90 >60 Jul 05, 2024 07:17 AM [facility] MAGNESIUM Specimen Type: PLASMA No comment entered. Ordering Provider: JUANCARLOS ECHOLS Report Released Date/Time: Jul 04, 2024 09:39 AM Reporting Lab: [facility] [address] Performing Lab: [facility] [address] MAGNESIUM 2.0 mg/dL 1.6-2.6 Jul 05, 2024 07:17 AM [facility] PHOSPHORUS Specimen Type: PLASMA No comment entered. Ordering Provider: JUANCARLOS ECHOLS Report Released Date/Time: Jul 04, 2024 09:39 AM Reporting Lab: [facility] [address] Performing Lab: [facility] [address] PHOSPHORUS 2.0 mg/dL L 2.3-4.3 Jul 05, 2024 07:17 AM [facility] BASIC METABOLIC PANEL+MG Specimen Type: PLASMA No comment entered. Ordering Provider: JUANCARLOS ECHOLS Report Released Date/Time: Jul 04, 2024 09:39 AM Reporting Lab: [facility] [address] Performing Lab: [facility] [address] CREATININE 0.7 mg/dL 0.7-1.2 UREA NITROGEN 12 mg/dL 8-26 GLUCOSE 84 mg/dL 70-100 SODIUM 135 mmol/L L 136-145 POTASSIUM 3.8 mmol/L 3.5-5.1 CHLORIDE 104 mmol/L 98-107 CO2 24 mmol/L 22-29 CALCIUM 9.3 mg/dL 8.4-10.2 MAGNESIUM 2.0 mg/dL 1.6-2.6 ANION GAP 7 mmol/L 5-15 .CREAT EGFR(CKD-EPI) >90 >60 Jul 05, 2024 07:16 AM [facility] CBC Specimen Type: BLOOD No comment entered. Ordering Provider: JUANCARLOS ECHOLS S Report Released Date/Time: Jul 04, 2024 09:39 AM Reporting Lab: [facility] [address] Performing Lab: [facility] [address] WBC 18.3 H 4.0-11.0 RBC 4.49 L 4.60-6.20 HGB 14.1 g/dL 13.5-17.9 HCT 43.4 41.0-54.0 MCV 96.7 fL 80.0-100.0 MCH 31.4 pg 27.0-33.0 MCHC 32.5 g/dL 32.0-37.5 PLT 317 150-400 MPV 10.0 fL 9.1-13.0 RDW 13.9 11.5-14.5 Jul 04, 2024 07:17 AM [facility] BASIC METABOLIC PANEL+MG Specimen Type: PLASMA No comment entered. Ordering Provider: GABINO CAMERON Report Released Date/Time: Jul 03, 2024 06:31 PM Reporting Lab: [facility] [address] Performing Lab: [facility] [address] CREATININE 0.7 mg/dL 0.7-1.2 UREA NITROGEN 16 mg/dL 8-26 GLUCOSE 129 mg/dL H 70-100 SODIUM 137 mmol/L 136-145 POTASSIUM 3.7 mmol/L 3.5-5.1 CHLORIDE 107 mmol/L 98-107 CO2 22 mmol/L 22-29 CALCIUM 9.0 mg/dL 8.4-10.2 MAGNESIUM 1.9 mg/dL 1.6-2.6 ANION GAP 8 mmol/L 5-15 .CREAT EGFR(CKD-EPI) >90 >60 Jul 04, 2024 07:17 AM [facility] PHOSPHORUS Specimen Type: PLASMA No comment entered. Ordering Provider: GABINO CAMERON Report Released Date/Time: Jul 03, 2024 06:31 PM Reporting Lab: [facility] [address] Performing Lab: [facility] [address] PHOSPHORUS 2.8 mg/dL 2.3-4.3 Jul 04, 2024 07:16 AM [facility] CBC Specimen Type: BLOOD No comment entered. Ordering Provider: GABINO CAMERON Report Released Date/Time: Jul 03, 2024 06:31 PM Reporting Lab: [facility] [address] Performing Lab: [facility] [address] WBC 20.6 H 4.0-11.0 RBC 4.63 4.60-6.20 HGB 14.2 g/dL 13.5-17.9 HCT 43.4 41.0-54.0 MCV 93.7 fL 80.0-100.0 MCH 30.7 pg 27.0-33.0 MCHC 32.7 g/dL 32.0-37.5 PLT 329 150-400 MPV 10.4 fL 9.1-13.0 RDW 13.8 11.5-14.5 Jul 04, 2024 07:16 AM [facility] CBC & DIFF Specimen Type: BLOOD Comment: Manual Differential Performed Ordering Provider: GABINO CAMERON Report Released Date/Time: Jul 03, 2024 06:31 PM Reporting Lab: [facility] [address] Performing Lab: [facility] [address] WBC 20.6 H 4.0-11.0 RBC 4.63 4.60-6.20 [...] MORPHOLOGY PRESENT Jul 04, 2024 07:15 AM [facility] BNP Specimen Type: PLASMA No comment entered. Ordering Provider: GABINO CAMERON Report Released Date/Time: Jul 03, 2024 06:31 PM Reporting Lab: [facility] [address] Performing Lab: [facility] [address] BNP 292 pg/mL H <99 Jul 03, 2024 10:32 PM [facility] FINGERSTICK GLUCOSE Specimen Type: BLOOD Comment: Save Result Nurse Notified Ordering Provider: KATELYNN PERSON Report Released Date/Time: Jul 03, 2024 10:50 PM Reporting Lab: [facility] [address] Performing Lab: [facility] [address] FINGERSTICK GLUCOSE 126 mg/dL H 70-100 Jul 03, 2024 05:33 PM [facility] FINGERSTICK GLUCOSE Specimen Type: BLOOD Comment: Save Result Nurse Notified Ordering Provider: KATELYNN PERSON Report Released Date/Time: Jul 03, 2024 05:46 PM Reporting Lab: [facility] [address] Performing Lab: [facility] [address] FINGERSTICK GLUCOSE 141 mg/dL H 70-100 Jul 03, 2024 02:31 PM [facility] POC ABG/ELECTROLYTES Specimen Type: ARTERIAL BLOOD Comment: FIO2 = 97% Patient Temp: 36.0 C Sample Type = ARTERIAL Ordering Provider: MAZIN ARREDONDO Report Released Date/Time: Jul 03, 2024 01:48 PM Reporting Lab: [facility] [address] Performing Lab: [facility] [address] POC PH 7.387 7.35-7.45 POC PCO2 34.4 [...] H 80.0-105.0 Jul 03, 2024 01:05 PM [facility] POC ABG/ELECTROLYTES Specimen Type: ARTERIAL BLOOD Comment: FIO2 = 53% Patient Temp: 36.2 C Sample Type = ARTERIAL Ordering Provider: MAZIN ARREDONDO Report Released Date/Time: Jul 03, 2024 01:48 PM Reporting Lab: [facility] [address] Performing Lab: [facility] [address] POC PH 7.280 L 7.35-7.45 POC PCO2 [...] mm[Hg] 80.0-105.0 Jul 03, 2024 06:15 AM [facility] URINALYSIS Specimen Type: URINE No comment entered. Ordering Provider: MARYBETH POWELL Report Released Date/Time: Jun 12, 2024 04:01 PM Reporting Lab: [facility] [address] Performing Lab: [facility] [address] URINE COLOR YELLOW SPECIFIC GRAVITY 1.031 1.003-1.03 [...] 250 NEGATIVE Jul 03, 2024 06:13 AM [facility] CBC Specimen Type: BLOOD No comment entered. Ordering Provider: MARYBETH POWELL Report Released Date/Time: Jun 12, 2024 03:59 PM Reporting Lab: [facility] [id number] Performing Lab: [facility] [id number] WBC 15.8 H 4.0-11.0 RBC 5.11 4.60-6.20 HGB 16.1 g/dL 13.5-17.9 HCT 49.1 41.0-54.0 MCV 96.1 fL 80.0-100.0 MCH 31.5 pg 27.0-33.0 MCHC 32.8 g/dL 32.0-37.5 PLT 357 150-400 MPV 9.8 fL 9.1-13.0 RDW 13.7 11.5-14.5 Social History: Smoking Status (Most current) and [...] 15, 2024 08:30 AM VA-TOBACCO FORMER USER [facility] Tobacco [...] QUIT 15 YRS OR MORE [facility] May 06, 2023 11:30 AM VA-TOBACCO FORMER USER [facility] May 06, 2023 11:30 AM VA-TOBACCO QUIT [...] 06:15 PM CHEST 1 VIEW: MEGFLACA YAMIL [id number] -1950 M Exm Date: JUL 18, 2024@18:15 Req Phys: LEISA GOLDEN Loc: 07-18-2024@19:00 Img Loc: MAIN X-RAY Service: [facility] [place] [address] (Case [id number] COMPLETE) CHEST 1 VIEW (RAD Detailed) CPT:97751 Proc Modifiers : PORTABLE EXAM Reason for Study: SOB Clinical History: [place] IS NOT under investigation for COVID-19 or is COVID-19 negative 73 yo with SOB Responsible provider name and phone number to notify for critical findings if other than user placing the order and pager listed below: User placing orders pager: [phone] LAST CREATININE 1.2 (07/17/24) Report Status: Verified Date Reported: JUL 18, 2024 Date Verified: JUL 18, 2024 Field Logistics Coordinator E-Sig:/ES/CARLOS A CUNNINGHAM DO Report: EXAMINATION: CHEST 1 VIEW Reason for Study: SOB IS NOT under investigation for COVID-19 or is COVID-19 negative 73 yo with SOB Responsible provider name and phone number to notify for critical findings if other than user placing the order and pager listed below: User placing orders pager: [phone] LAST CREATININE 1.2 (07/17/24) SOB TECHNIQUE: Single [...] Interpreting Staff: CARLOS A CUNNINGHAM DO, RADIOLOGIST (Field Logistics Coordinator) /KMCARLOS A DONALD [facility] Jul 16, 2024 07:49 AM [facility] ABDOMEN/PELVIS: FLACA WEAVER [id number] -1950 M Exm Date: JUL 16, 2024@07:49 Req Phys: JATINDER CABRERA Loc: 07-17-2024@09:02 Img Loc: OUTSOURCE CT Service: Unknown (Case [id number] COMPLETE) [facility] CT ABDOMEN/PELVIS (CT Detailed) CPT:84916 Reason for Study: outside study Clinical History: [...] Diagnostic Code: VERIFIED BY: / *ELECTRONICALLY FILED* [facility] Jul 13, 2024 09:41 AM [facility] CT ABDOMEN/PELVIS: FLACA WEAVER [id number] -1950 M Exm Date: JUL 13, 2024@09:41 Req Phys: JATINDER CABRERA Loc: 07-17-2024@09:08 Img Loc: OUTSOURCE CT Service: Unknown (Case [id number] COMPLETE) NON [place] CT ABDOMEN/PELVIS (CT Detailed) CPT:84696 Reason for Study: outside study Clinical History: [...] Diagnostic Code: VERIFIED BY: / *ELECTRONICALLY FILED* [facility] Jul 08, 2024 10:09 AM CHEST 2 VIEWS PA AND LAT: FLACA WEAVER [id number] -1950 M Exm Date: JUL 08, 2024@10:09 Req Phys: KATELYNN PERSON [facility] Loc: [facility]/07-08-2024@11:49 Img Loc: MAIN X-RAY Service: [facility] [address] (Case 24 COMPLETE) CHEST 2 VIEWS PA AND LAT (RAD Detailed) CPT:32463 Reason for Study: Uptrending WBC, POD 5 Clinical History: [place] IS NOT under investigation for COVID-19 or is COVID-19 negative POD 5, work up for uptrending wbc Responsible provider name and phone number to notify for critical findings if other than user placing the order and pager listed below: User placing orders pager: Katelynn Person LAST CREATININE 0.9 (07/07/24) Report Status: Verified Date Reported: JUL 08, 2024 Date Verified: JUL 08, 2024 Field Logistics Coordinator E-Sig: Report: CHEST 2 VIEWS PA AND LAT HISTORY: Uptrending WBC, POD 5 COMPARISON: CT chest 11/12/2022 TECHNIQUE: Frontal and lateral views of the chest, submitted to the [place] National Teleradiology Program (NTP) for interpretation. FINDINGS: Lungs: Clear. No focal consolidation. No pulmonary edema. Pleura: No pleural effusion or pneumothorax. Mediastinum: Normal size and contour. Bones: Unremarkable. Impression: No acute cardiopulmonary disease. READING PHYSICIAN: Sarbjit Vaughn M.D. -[id number] 07/08/2024 12:46 [facility] National Teleradiology Program [phone] (For Medical Practitioner Use Only) Attention Patients / Veterans: If you have questions or concerns about these test results, please contact your ordering provider or primary care team. Primary Interpreting Staff: RADIOLOGY,OUTSIDE SERVICE, Staff Physician / RADIOLOGY,OUTSIDE SERVICE [facility] Jul 08, 2024 10:[address] (AP) ABDOMEN/PELVIS W CONTRAST: FLACA WEAVER [id number] -1950 M Exm Date: JUL 08, 2024@10:00 Req Phys: KATELYNN PERSON [facility] Loc: [facility]/07-08-2024@12:07 Img Loc: CT IMAGING Service: [facility] [place] [address] (Case 22 COMPLETE) CT (AP) ABDOMEN/PELVIS W CONTRAST(CT Detailed) CPT:99436 Contrast Media : Non-ionic Iodinated Reason for [...] PLASMA .CREAT EGFR(CKD-E >90 Ref: >=60 Allergies: ([place] only) TERAZOSIN (Mar 13, 2015) Report Status: Verified Date Reported: JUL 08, 2024 Date Verified: JUL 08, 2024 Field Logistics Coordinator E-Sig: Report: CT (AP) ABDOMEN/PELVIS W CONTRAST HISTORY: POD 5, Uptrending WBC - Concern for Abscess/other infection COMPARISON: June 21, 2024 TECHNIQUE: CT abdomen and pelvis was performed after intravenous contrast. Axial, sagittal and coronal reformatted images. The study was performed at the local [place] facility and images were sent to the [place] National Teleradiology Program (NTP) for interpretation. Number [...] as noted above READING PHYSICIAN: Celestino Blanc -[id number] 07/08/2024 13:04 EST [facility] National Teleradiology Program [phone] (For Medical Practitioner Use Only) Attention Patients / Veterans: If you have questions or concerns about these test results, please contact your ordering provider or primary care team. Primary Interpreting Staff: RADIOLOGY,OUTSIDE SERVICE, Staff Physician / RADIOLOGY,OUTSIDE SERVICE [facility] Pathology Reports: +/- 30 days of the [...] the Encounter. The data comes from all [facility] facilities. Date/Time Pathology Report Provider Source Jul 16, 2024 02:07 PM LR MICROBIOLOGY RE PORT: Reporting Lab: [facility] [CLIA# [id number]] [place] [address] Accession [UID]: [id number] [[id number]] Received: Jul 16, 2024@14:41 Collection sample: BLOOD Collection date: Jul 16, 2024 14:07 Provider: LEISA GOLDEN Comment on specimen: R AC, RECEIVED 2 BLOOD CULTURE BOTTLES Test(s) ordered: CULTURE & SUSCEPTIBILITY...... completed: Jul 22, 2024 * BACTERIOLOGY FINAL REPORT => Jul 22, 2024 13:39 TECH CODE: [id number] CULTURE RESULTS: NO GROWTH 5 DAYS Bacteriology Remark(s): THIS REPORT IS FINAL =--=--=--=--=--=--=--=--=-- =--=--=--=--=--=--=--=--=-- =--=--=--=--=--=--=--=-- Performing Laboratory: Bacteriology Report Performed By: [facility] [CLIA# [id number]] [place] [address] [facility] Jul 16, 2024 01:54 PM LR MICROBIOLOGY RE PORT: Reporting Lab: [facility] [CLIA# [id number]] [place] [address] Accession [UID]: [id number] [[id number]] Received: Jul 16, 2024@14:41 Collection sample: BLOOD Collection date: Jul 16, 2024 13:54 Provider: LEISA GOLDEN Comment on specimen: [place] AC, RECEIVED 2 BLOOD CULTURE BOTTLES Test(s) ordered: CULTURE & SUSCEPTIBILITY...... completed: Jul 22, 2024 * BACTERIOLOGY FINAL REPORT => Jul 22, 2024 13:39 TECH CODE: [id number] CULTURE RESULTS: NO GROWTH 5 DAYS Bacteriology Remark(s): THIS REPORT IS FINAL =--=--=--=--=--=--=--=--=-- =--=--=--=--=--=--=--=--=-- =--=--=--=--=--=--=--=-- Performing Laboratory: Bacteriology Report Performed By: [facility] [CLIA# [id number]] [place] [address] [facility] Jul 03, 2024 05:59 AM LR SURGICAL PATHOL OGY REPORT: LOCAL TITLE: LR SURGICAL PATHOLOGY REPORT STANDARD TITLE: PATHOLOGY REPORT DATE OF NOTE: JUL 06, 2024@10:40:48 ENTRY DATE: JUL 06, 2024@10:40:48 AUTHOR: EDUARDO PALOMARES EXP COSIGNER: URGENCY: STATUS: COMPLETED $APHDR Reporting Lab: [facility] [CLIA# [id number]] [place] [address] - - - - - - - [...] - PATHOLOGY REPORT Accession No. [id number] - - - - - - - [...] ARREDONDO MD Attending Surgeon: Wenceslao Arredondo MD =-=-=-=-=-=-=-=-=-=-=-=-=-= -=-=-=-=-=-=-=-=-=-=-=-=-=- =-=-=-=-=-=-=-=-=-=-=-=-= - - - - - - - - - - - - - - - - - - - - - - - - - - - - - - - - - - - - - - - - PATHOLOGY REPORT Accession No. [id number] - - - - - - - [...] Second circumferential surgical margin, en face; E-F: Ecology Teacher diverticula; G: Ecology Teacher section of mesentery; H: Random pharmacy sales representative section of additional adipose tissue [...] Performing Laboratory: Surgical Pathology Report Performed By: [facility] [CLIA# [id number]] [place] [address] $FTR - - - - - - [...] - - FLACA WEAVER STANDARD FORM 515 ID:[id number] SEX:M :1950 AGE: 73 LOC:11111 ADM:Jun DX:DIVERTICULITIS PCP: Jatinder Cabrera /alexi/ EDUARDO PALOMARES MD STAFF PATHOLOGIST Signed: 07/06/2024 10:40 EDUARDO PALOMARES [facility] Encounter Notes: All associated encounter notes This section contains the clinical notes associated to the Encounter. Date/Time Encounter Note(s) Provider Source Jul 30, 2024 09:02 AM REPORT OF CONTACT: LOCAL TITLE: APPOINTMENT SCHEDULING NOTE STANDARD TITLE: REPORT OF CONTACT DATE OF NOTE: JUL 30, 2024@09:02 ENTRY DATE: JUL 30, 2024@09:02:05 AUTHOR: SCAR MURRIETA EXP COSIGNER: URGENCY: STATUS: COMPLETED Attempted to schedule Return to clinic (RTC) Contact attempt made to 1st attempt Telephone 2nd attempt Letter - Sent letter by regular [place] mail to address on file: FLACA WEAVER [address], [place] [address] Disposition order request after Jul Left message on voice mail to call back to this number [phone] If calls back, schedule appt for: Return to [facility] WOUND/OSTOMY A 2F on or around ( Aug 09, 2024 ) for a total of 1 appointment(s) 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
--- OUTSIDE RECORDS SUMMARY | 2024-08-01 07:52 | XMS_ITS | Encounter Summary ---
Author Name [facility] [facility] [place] Address [address] [place] [address] Care Team Providers Care Modeling Analyst Name Role Phone JATINDER CABRERA Primary [...] PART A Sep 29, 2016 PART A [id number] [phone] JUDY WEAVER PATIENT Selected Encounter This section includes the information on record at [place] for the Encounter. Date/Time Encounter Type Encounter Description Reason Provider Source Jul 16, 2024 08:40 AM Inpatient Visit ADMIN PAT ACTIVTIES (MASNONCT) SHAHNAZ ALAS Alex [...] Chemi stry Order URINALYSIS URINE WC ONCE [facility] Jun 12, 2024 12:00 AM Laboratory - Chemi stry Order BNP PLASMA SP ONCE [facility] Jun 21, 2024 05:45 PM Laboratory - Blood Bank Order TYPE & SCREEN - LAB BLOOD WC [facility] Jul 03, 2024 12:00 AM Laboratory - Blood Bank Order TYPE & SCREEN - LAB BLOOD WC [facility] Jul 16, 2024 12:00 AM Laboratory - Chemi stry Order CBC BLOOD SP ONCE [facility] Jul 17, 2024 12:00 AM Laboratory - Chemi stry Order BASIC METABOLIC PANEL+MG PLASMA SP ONCE [facility] Lab Results: +/- 30 [...] Range Comment Jul 21, 2024 10:38 AM [facility] BASIC METABOLIC PANEL+MG Specimen Type: PLASMA No comment entered. Ordering Provider: SARAI GOLDEN Report Released Date/Time: Jul 20, 2024 06:50 PM Reporting Lab: [facility] [phone] Performing Lab: [facility] [address] CREATININE 0.8 mg/dL 0.7-1.2 UREA NITROGEN 31 mg/dL H 8-26 GLUCOSE 120 mg/dL H 70-100 SODIUM 125 mmol/L L 136-145 POTASSIUM 4.4 mmol/L 3.5-5.1 CHLORIDE 100 mmol/L 98-107 CO2 17 mmol/L L 22-29 CALCIUM 9.6 mg/dL 8.4-10.2 MAGNESIUM 1.9 mg/dL 1.6-2.6 ANION GAP 8 mmol/L 5-15 .CREAT EGFR(CKD-EPI) >90 >60 Jul 21, 2024 10:38 AM [facility] CBC Specimen Type: BLOOD No comment entered. Ordering Provider: SARAI GOLDEN Report Released Date/Time: Jul 20, 2024 06:50 PM Reporting Lab: [facility] [phone] Performing Lab: [facility] [address] WBC 16.0 H 4.0-11.0 RBC 5.16 4.60-6.20 HGB 15.8 g/dL 13.5-17.9 HCT 45.5 41.0-54.0 MCV 88.2 fL 80.0-100.0 MCH 30.6 pg 27.0-33.0 MCHC 34.7 g/dL 32.0-37.5 PLT 428 H 150-400 MPV 10.8 fL 9.1-13.0 RDW 13.6 11.5-14.5 Jul 20, 2024 01:00 PM [facility] SODIUM,URINE RANDOM Specimen Type: URINE No comment entered. Ordering Provider: SARAI GOLDEN Report Released Date/Time: Jul 20, 2024 08:22 AM Reporting Lab: [facility] [phone] Performing Lab: [facility] [phone] SODIUM,URINE RANDOM <20 mmol/L Jul 20, 2024 01:00 PM [facility] OSMOLALITY,URINE Specimen Type: URINE No comment entered. Ordering Provider: SARAI GOLDEN Report Released Date/Time: Jul 20, 2024 08:22 AM Reporting Lab: [facility] [phone] Performing Lab: [facility] [address] OSMOLALITY,URIN E 648 mosm/kg 500-800 Jul 20, 2024 06:45 AM [facility] BASIC METABOLIC PANEL+MG Specimen Type: PLASMA No comment entered. Ordering Provider: SARAI GOLDEN Report Released Date/Time: Jul 19, 2024 06:13 PM Reporting Lab: [facility] [phone] Performing Lab: [facility] [address] CREATININE 0.8 mg/dL 0.7-1.2 UREA NITROGEN 36 mg/dL H 8-26 GLUCOSE 111 mg/dL H 70-100 SODIUM 121 mmol/L L 136-145 POTASSIUM 4.1 mmol/L 3.5-5.1 CHLORIDE 99 mmol/L 98-107 CO2 14 mmol/L L 22-29 CALCIUM 9.5 mg/dL 8.4-10.2 MAGNESIUM 1.8 mg/dL 1.6-2.6 ANION GAP 8 mmol/L 5-15 .CREAT EGFR(CKD-EPI) >90 >60 Jul 20, 2024 06:43 AM [facility] CBC & DIFF Specimen Type: BLOOD Comment: Automated Differential Performed Ordering Provider: SARAI GOLDEN Report Released Date/Time: Jul 19, 2024 06:13 PM Reporting Lab: [facility] [phone] Performing Lab: [facility] [address] WBC 16.6 H 4.0-11.0 RBC 4.96 4.60-6.20 [...] H 0.0-0.1 Jul 20, 2024 05:30 AM [facility] OSMOLALITY,SERUM Specimen Type: SERUM No comment entered. Ordering Provider: SARAI GOLDEN Report Released Date/Time: Jul 20, 2024 09:47 AM Reporting Lab: [facility] [address] Performing Lab: [facility] [phone] OSMOLALITY,SERU M 266 mosm/kg L 276-305 Jul 19, 2024 08:57 AM [facility] BASIC METABOLIC PANEL+MG Specimen Type: PLASMA No comment entered. Ordering Provider: SARAI GOLDEN Report Released Date/Time: Jul 18, 2024 10:24 PM Reporting Lab: [facility] [phone] Performing Lab: [facility] [address] CREATININE 1.0 mg/dL 0.7-1.2 UREA NITROGEN 40 mg/dL H 8-26 GLUCOSE 104 mg/dL H 70-100 SODIUM 129 mmol/L L 136-145 POTASSIUM 3.3 mmol/L L 3.5-5.1 CHLORIDE 104 mmol/L 98-107 CO2 16 mmol/L L 22-29 CALCIUM 8.0 mg/dL L 8.4-10.2 MAGNESIUM 1.7 mg/dL 1.6-2.6 ANION GAP 9 mmol/L 5-15 .CREAT EGFR(CKD-EPI) 80 >60 Jul 19, 2024 08:57 AM [facility] CBC Specimen Type: BLOOD No comment entered. Ordering Provider: SARAI GOLDEN Report Released Date/Time: Jul 18, 2024 10:24 PM Reporting Lab: [facility] [phone] Performing Lab: [facility] [address] WBC 17.3 H 4.0-11.0 RBC 4.83 4.60-6.20 HGB 14.8 g/dL 13.5-17.9 HCT 42.6 41.0-54.0 MCV 88.2 fL 80.0-100.0 MCH 30.6 pg 27.0-33.0 MCHC 34.7 g/dL 32.0-37.5 PLT 456 H 150-400 MPV 10.8 fL 9.1-13.0 RDW 13.7 11.5-14.5 Jul 17, 2024 06:55 PM [facility] PHOSPHORUS Specimen Type: PLASMA No comment entered. Ordering Provider: SARAI GOLDEN Report Released Date/Time: Jul 17, 2024 01:54 PM Reporting Lab: [facility] [phone] Performing Lab: [facility] [address] PHOSPHORUS 2.9 mg/dL 2.3-4.3 Jul 17, 2024 06:55 PM [facility] BASIC METABOLIC PANEL+MG Specimen Type: PLASMA No comment entered. Ordering Provider: SARAI GOLDEN Report Released Date/Time: Jul 17, 2024 01:54 PM Reporting Lab: [facility] [address] Performing Lab: [facility] [address] CREATININE 1.2 mg/dL 0.7-1.2 UREA NITROGEN 62 mg/dL H 8-26 GLUCOSE 116 mg/dL H 70-100 SODIUM 128 mmol/L L 136-145 POTASSIUM 3.8 mmol/L 3.5-5.1 CHLORIDE 100 mmol/L 98-107 CO2 16 mmol/L L 22-29 CALCIUM 9.3 mg/dL 8.4-10.2 MAGNESIUM 2.1 mg/dL 1.6-2.6 ANION GAP 12 mmol/L 5-15 .CREAT EGFR(CKD-EPI) 64 >60 Jul 17, 2024 07:00 AM [facility] CBC & DIFF Specimen Type: BLOOD Comment: Manual Differential Performed Ordering Provider: SARAI GOLDEN Report Released Date/Time: Jul 16, 2024 04:52 PM Reporting Lab: [facility] [phone] Performing Lab: [facility] [address] WBC 18.9 H 4.0-11.0 RBC 5.55 4.60-6.20 [...] MORPHOLOGY PRESENT Jul 17, 2024 07:00 AM [facility] ALBUMIN Specimen Type: PLASMA No comment entered. Ordering Provider: SARAI GOLDEN Report Released Date/Time: Jul 16, 2024 12:12 PM Reporting Lab: [facility] [address] Performing Lab: [facility] [phone] ALBUMIN 4.3 g/dL 3.5-5.0 Jul 17, 2024 07:00 AM [facility] COMPREHENSIVE METABOLIC PANEL+MG Specimen Type: PLASMA No comment entered. Ordering Provider: SARAI GOLDEN Report Released Date/Time: Jul 16, 2024 04:52 PM Reporting Lab: [facility] [address] Performing Lab: [facility] [address] CREATININE 1.3 mg/dL H 0.7-1.2 UREA NITROGEN [...] L >60 Jul 16, 2024 07:10 PM [facility] LACTIC ACID Specimen Type: PLASMA No comment entered. Ordering Provider: SARAI GOLDEN Report Released Date/Time: Jul 16, 2024 12:12 PM Reporting Lab: [facility] [address] Performing Lab: [facility] [address] LACTIC ACID 0.9 mmol/L 0.5-2.2 Jul 16, 2024 02:14 PM [facility] MRSA SURVL NARES DNA Specimen Type: NARES No comment entered. Ordering Provider: SARAI GOLDEN Report Released Date/Time: Jul 16, 2024 12:12 PM Reporting Lab: [facility] [phone] Performing Lab: [facility] [address] MRSA SURVL NARES DNA NEGATIVE Negative Jul 16, 2024 02:10 PM [facility] LACTIC ACID Specimen Type: PLASMA No comment entered. Ordering Provider: SARAI GOLDEN Report Released Date/Time: Jul 16, 2024 12:12 PM Reporting Lab: [facility] [address] Performing Lab: [facility] [address] LACTIC ACID 0.9 mmol/L 0.5-2.2 Jul 16, 2024 02:08 PM [facility] COMPREHENSIVE METABOLIC PANEL+MG Specimen Type: PLASMA No comment entered. Ordering Provider: SARAI GOLDEN Report Released Date/Time: Jul 16, 2024 12:12 PM Reporting Lab: [facility] [phone] Performing Lab: [facility] [address] CREATININE 2.0 mg/dL H 0.7-1.2 UREA NITROGEN [...] L >60 Jul 16, 2024 02:08 PM [facility] CBC & DIFF Specimen Type: BLOOD Comment: Manual Differential Performed Ordering Provider: SARAI GOLDEN Report Released Date/Time: Jul 16, 2024 12:12 PM Reporting Lab: [facility] [address] Performing Lab: [facility] [address] WBC 19.7 H 4.0-11.0 RBC 5.39 4.60-6.20 [...] MORPHOLOGY PRESENT Jul 10, 2024 07:16 AM [facility] PHOSPHORUS Specimen Type: PLASMA No comment entered. Ordering Provider: JUANCARLOS ECHOLS S Report Released Date/Time: Jul 09, 2024 12:23 PM Reporting Lab: [facility] [address] Performing Lab: [facility] [address] PHOSPHORUS 3.0 mg/dL 2.3-4.3 Jul 10, 2024 07:16 AM [facility] BASIC METABOLIC PANEL+MG Specimen Type: PLASMA No comment entered. Ordering Provider: JUANCARLOS ECHOLS S Report Released Date/Time: Jul 09, 2024 12:23 PM Reporting Lab: [facility] [address] Performing Lab: [facility] [phone] CREATININE 0.7 mg/dL 0.7-1.2 UREA NITROGEN 27 mg/dL H 8-26 GLUCOSE 104 mg/dL H 70-100 SODIUM 133 mmol/L L 136-145 POTASSIUM 4.3 mmol/L 3.5-5.1 CHLORIDE 102 mmol/L 98-107 CO2 19 mmol/L L 22-29 CALCIUM 10.1 mg/dL 8.4-10.2 MAGNESIUM 1.9 mg/dL 1.6-2.6 ANION GAP 12 mmol/L 5-15 .CREAT EGFR(CKD-EPI) >90 >60 Jul 10, 2024 07:15 AM [facility] CBC Specimen Type: BLOOD No comment entered. Ordering Provider: JUANCARLOS ECHOLS Report Released Date/Time: Jul 09, 2024 12:23 PM Reporting Lab: [facility] [address] Performing Lab: [facility] [address] WBC 18.8 H 4.0-11.0 RBC 5.08 4.60-6.20 HGB 15.9 g/dL 13.5-17.9 HCT 46.8 41.0-54.0 MCV 92.1 fL 80.0-100.0 MCH 31.3 pg 27.0-33.0 MCHC 34.0 g/dL 32.0-37.5 PLT 479 H 150-400 MPV 10.2 fL 9.1-13.0 RDW 13.7 11.5-14.5 Jul 09, 2024 07:08 AM [facility] CBC Specimen Type: BLOOD No comment entered. Ordering Provider: QUYNH WEISS Report Released Date/Time: Jul 08, 2024 06:18 PM Reporting Lab: [facility] [address] Performing Lab: [facility] [address] WBC 15.3 H 4.0-11.0 RBC 4.91 4.60-6.20 HGB 15.1 g/dL 13.5-17.9 HCT 45.7 41.0-54.0 MCV 93.1 fL 80.0-100.0 MCH 30.8 pg 27.0-33.0 MCHC 33.0 g/dL 32.0-37.5 PLT 443 H 150-400 MPV 10.0 fL 9.1-13.0 RDW 13.5 11.5-14.5 Jul 08, 2024 10:50 AM [facility] URINALYSIS Specimen Type: URINE No comment entered. Ordering Provider: KATELYNN PERSON Report Released Date/Time: Jul 08, 2024 08:41 AM Reporting Lab: [facility] [phone] Performing Lab: [facility] [address] URINE COLOR YELLOW SPECIFIC GRAVITY >1.050 H [...] NEGATIVE NEGATIVE Jul 08, 2024 09:54 AM [facility] CBC Specimen Type: BLOOD Comment: Specimen received in Lab at: [id number] Ordering Provider: JUANCARLOS ECHOLS Report Released Date/Time: Jul 07, 2024 04:49 PM Reporting Lab: [facility] [address] Performing Lab: [facility] [address] WBC 17.5 H 4.0-11.0 RBC 4.88 4.60-6.20 HGB 14.9 g/dL 13.5-17.9 HCT 45.7 41.0-54.0 MCV 93.6 fL 80.0-100.0 MCH 30.5 pg 27.0-33.0 MCHC 32.6 g/dL 32.0-37.5 PLT 472 H 150-400 MPV 10.2 fL 9.1-13.0 RDW 13.7 11.5-14.5 Jul 08, 2024 09:54 AM [facility] PHOSPHORUS Specimen Type: PLASMA Comment: Specimen received in Lab at: [id number] Ordering Provider: JUANCARLOS ECHOLS Report Released Date/Time: Jul 07, 2024 04:49 PM Reporting Lab: [facility] [address] Performing Lab: [facility] [address] PHOSPHORUS 2.6 mg/dL 2.3-4.3 Jul 08, 2024 09:54 AM [facility] BASIC METABOLIC PANEL+MG Specimen Type: PLASMA Comment: Specimen received in Lab at: [id number] Ordering Provider: JUANCARLOS ECHOLS Report Released Date/Time: Jul 07, 2024 04:49 PM Reporting Lab: [facility] [address] Performing Lab: [facility] [address] CREATININE 0.9 mg/dL 0.7-1.2 UREA NITROGEN 26 mg/dL 8-26 GLUCOSE 128 mg/dL H 70-100 SODIUM 134 mmol/L L 136-145 POTASSIUM 3.4 mmol/L L 3.5-5.1 CHLORIDE 100 mmol/L 98-107 CO2 24 mmol/L 22-29 CALCIUM 9.8 mg/dL 8.4-10.2 MAGNESIUM 1.8 mg/dL 1.6-2.6 ANION GAP 10 mmol/L 5-15 .CREAT EGFR(CKD-EPI) >90 >60 Jul 07, 2024 02:00 PM [facility] C DIFF PANEL Specimen Type: FECES No comment entered. Ordering Provider: JEVON ZAZUETA Report Released Date/Time: Jul 07, 2024 12:26 PM Reporting Lab: [facility] [address] Performing Lab: [facility] [address] C DIFF TOX B GENE PCR NEGATIVE Negative Jul 07, 2024 07:41 AM [facility] BASIC METABOLIC PANEL+MG Specimen Type: PLASMA No comment entered. Ordering Provider: JEVON ZAZUETA Report Released Date/Time: Jul 06, 2024 03:44 PM Reporting Lab: [facility] [address] Performing Lab: [facility] [address] CREATININE 0.9 mg/dL 0.7-1.2 UREA NITROGEN 20 mg/dL 8-26 GLUCOSE 157 mg/dL H 70-100 SODIUM 136 mmol/L 136-145 POTASSIUM 3.7 mmol/L 3.5-5.1 CHLORIDE 102 mmol/L 98-107 CO2 21 mmol/L L 22-29 CALCIUM 9.8 mg/dL 8.4-10.2 MAGNESIUM 1.9 mg/dL 1.6-2.6 ANION GAP 13 mmol/L 5-15 .CREAT EGFR(CKD-EPI) >90 >60 Jul 07, 2024 07:41 AM [facility] PHOSPHORUS Specimen Type: PLASMA No comment entered. Ordering Provider: JEVON ZAZUETA Report Released Date/Time: Jul 06, 2024 03:44 PM Reporting Lab: [facility] [address] Performing Lab: [facility] [address] PHOSPHORUS 3.1 mg/dL 2.3-4.3 Jul 07, 2024 07:40 AM [facility] CBC Specimen Type: BLOOD No comment entered. Ordering Provider: JEVON ZAZUETA Report Released Date/Time: Jul 06, 2024 03:44 PM Reporting Lab: [facility] [address] Performing Lab: [facility] [address] WBC 21.2 H 4.0-11.0 RBC 5.09 4.60-6.20 HGB 15.9 g/dL 13.5-17.9 HCT 48.3 41.0-54.0 MCV 94.9 fL 80.0-100.0 MCH 31.2 pg 27.0-33.0 MCHC 32.9 g/dL 32.0-37.5 PLT 500 H 150-400 MPV 10.3 fL 9.1-13.0 RDW 13.6 11.5-14.5 Jul 06, 2024 07:21 AM [facility] CBC Specimen Type: BLOOD No comment entered. Ordering Provider: JEVON ZAZUETA Report Released Date/Time: Jul 05, 2024 01:22 PM Reporting Lab: [facility] [address] Performing Lab: [facility] [address] WBC 18.0 H 4.0-11.0 RBC 4.83 4.60-6.20 HGB 14.6 g/dL 13.5-17.9 HCT 45.5 41.0-54.0 MCV 94.2 fL 80.0-100.0 MCH 30.2 pg 27.0-33.0 MCHC 32.1 g/dL 32.0-37.5 PLT 368 150-400 MPV 10.4 fL 9.1-13.0 RDW 13.6 11.5-14.5 Jul 06, 2024 07:21 AM [facility] PHOSPHORUS Specimen Type: PLASMA No comment entered. Ordering Provider: JEVON ZAZUETA Report Released Date/Time: Jul 05, 2024 01:22 PM Reporting Lab: [facility] [address] Performing Lab: [facility] [address] PHOSPHORUS 3.6 mg/dL 2.3-4.3 Jul 06, 2024 07:21 AM [facility] BASIC METABOLIC PANEL+MG Specimen Type: PLASMA No comment entered. Ordering Provider: JEVON ZAZUETA Report Released Date/Time: Jul 05, 2024 01:22 PM Reporting Lab: [facility] [address] Performing Lab: [facility] [address] CREATININE 0.7 mg/dL 0.7-1.2 UREA NITROGEN 12 mg/dL 8-26 GLUCOSE 108 mg/dL H 70-100 SODIUM 138 mmol/L 136-145 POTASSIUM 3.4 mmol/L L 3.5-5.1 CHLORIDE 104 mmol/L 98-107 CO2 20 mmol/L L 22-29 CALCIUM 9.3 mg/dL 8.4-10.2 MAGNESIUM 1.9 mg/dL 1.6-2.6 ANION GAP 14 mmol/L 5-15 .CREAT EGFR(CKD-EPI) >90 >60 Jul 05, 2024 07:17 AM [facility] MAGNESIUM Specimen Type: PLASMA No comment entered. Ordering Provider: JUANCARLOS ECHOLS S Report Released Date/Time: Jul 04, 2024 09:39 AM Reporting Lab: [facility] [phone] Performing Lab: [facility] [address] MAGNESIUM 2.0 mg/dL 1.6-2.6 Jul 05, 2024 07:17 AM [facility] PHOSPHORUS Specimen Type: PLASMA No comment entered. Ordering Provider: JUANCARLOS ECHOLS S Report Released Date/Time: Jul 04, 2024 09:39 AM Reporting Lab: [facility] [address] Performing Lab: [facility] [address] PHOSPHORUS 2.0 mg/dL L 2.3-4.3 Jul 05, 2024 07:17 AM [facility] BASIC METABOLIC PANEL+MG Specimen Type: PLASMA No comment entered. Ordering Provider: JUANCARLOS ECHOLS S Report Released Date/Time: Jul 04, 2024 09:39 AM Reporting Lab: [facility] [phone] Performing Lab: [facility] [address] CREATININE 0.7 mg/dL 0.7-1.2 UREA NITROGEN 12 mg/dL 8-26 GLUCOSE 84 mg/dL 70-100 SODIUM 135 mmol/L L 136-145 POTASSIUM 3.8 mmol/L 3.5-5.1 CHLORIDE 104 mmol/L 98-107 CO2 24 mmol/L 22-29 CALCIUM 9.3 mg/dL 8.4-10.2 MAGNESIUM 2.0 mg/dL 1.6-2.6 ANION GAP 7 mmol/L 5-15 .CREAT EGFR(CKD-EPI) >90 >60 Jul 05, 2024 07:16 AM [facility] CBC Specimen Type: BLOOD No comment entered. Ordering Provider: JUANCARLOS ECHOLS S Report Released Date/Time: Jul 04, 2024 09:39 AM Reporting Lab: [facility] [phone] Performing Lab: [facility] [address] WBC 18.3 H 4.0-11.0 RBC 4.49 L 4.60-6.20 HGB 14.1 g/dL 13.5-17.9 HCT 43.4 41.0-54.0 MCV 96.7 fL 80.0-100.0 MCH 31.4 pg 27.0-33.0 MCHC 32.5 g/dL 32.0-37.5 PLT 317 150-400 MPV 10.0 fL 9.1-13.0 RDW 13.9 11.5-14.5 Jul 04, 2024 07:17 AM [facility] BASIC METABOLIC PANEL+MG Specimen Type: PLASMA No comment entered. Ordering Provider: GABINO CAMERON Report Released Date/Time: Jul 03, 2024 06:31 PM Reporting Lab: [facility] [address] Performing Lab: [facility] [address] CREATININE 0.7 mg/dL 0.7-1.2 UREA NITROGEN 16 mg/dL 8-26 GLUCOSE 129 mg/dL H 70-100 SODIUM 137 mmol/L 136-145 POTASSIUM 3.7 mmol/L 3.5-5.1 CHLORIDE 107 mmol/L 98-107 CO2 22 mmol/L 22-29 CALCIUM 9.0 mg/dL 8.4-10.2 MAGNESIUM 1.9 mg/dL 1.6-2.6 ANION GAP 8 mmol/L 5-15 .CREAT EGFR(CKD-EPI) >90 >60 Jul 04, 2024 07:17 AM [facility] PHOSPHORUS Specimen Type: PLASMA No comment entered. Ordering Provider: GABINO CAMERON Report Released Date/Time: Jul 03, 2024 06:31 PM Reporting Lab: [facility] [address] Performing Lab: [facility] [address] PHOSPHORUS 2.8 mg/dL 2.3-4.3 Jul 04, 2024 07:16 AM [facility] CBC Specimen Type: BLOOD No comment entered. Ordering Provider: GABINO CAMERON Report Released Date/Time: Jul 03, 2024 06:31 PM Reporting Lab: [facility] [address] Performing Lab: [facility] [address] WBC 20.6 H 4.0-11.0 RBC 4.63 4.60-6.20 HGB 14.2 g/dL 13.5-17.9 HCT 43.4 41.0-54.0 MCV 93.7 fL 80.0-100.0 MCH 30.7 pg 27.0-33.0 MCHC 32.7 g/dL 32.0-37.5 PLT 329 150-400 MPV 10.4 fL 9.1-13.0 RDW 13.8 11.5-14.5 Jul 04, 2024 07:16 AM [facility] CBC & DIFF Specimen Type: BLOOD Comment: Manual Differential Performed Ordering Provider: GABINO CAMERON Report Released Date/Time: Jul 03, 2024 06:31 PM Reporting Lab: [facility] [address] Performing Lab: [facility] [address] WBC 20.6 H 4.0-11.0 RBC 4.63 4.60-6.20 [...] MORPHOLOGY PRESENT Jul 04, 2024 07:15 AM [facility] BNP Specimen Type: PLASMA No comment entered. Ordering Provider: GABINO CAMERON Report Released Date/Time: Jul 03, 2024 06:31 PM Reporting Lab: [facility] [address] Performing Lab: [facility] [address] BNP 292 pg/mL H <99 Jul 03, 2024 10:32 PM [facility] FINGERSTICK GLUCOSE Specimen Type: BLOOD Comment: Save Result Nurse Notified Ordering Provider: KATELYNN PERSON Report Released Date/Time: Jul 03, 2024 10:50 PM Reporting Lab: [facility] [address] Performing Lab: [facility] [address] FINGERSTICK GLUCOSE 126 mg/dL H 70-100 Jul 03, 2024 05:33 PM [facility] FINGERSTICK GLUCOSE Specimen Type: BLOOD Comment: Save Result Nurse Notified Ordering Provider: KATELYNN PERSON Report Released Date/Time: Jul 03, 2024 05:46 PM Reporting Lab: [facility] [phone] Performing Lab: [facility] [address] FINGERSTICK GLUCOSE 141 mg/dL H 70-100 Jul 03, 2024 02:31 PM [facility] POC ABG/ELECTROLYTES Specimen Type: ARTERIAL BLOOD Comment: FIO2 = 97% Patient Temp: 36.0 C Sample Type = ARTERIAL Ordering Provider: MAZIN ARREDONDO Report Released Date/Time: Jul 03, 2024 01:48 PM Reporting Lab: [facility] [address] Performing Lab: [facility] [address] POC PH 7.387 7.35-7.45 POC PCO2 34.4 [...] H 80.0-105.0 Jul 03, 2024 01:05 PM [facility] POC ABG/ELECTROLYTES Specimen Type: ARTERIAL BLOOD Comment: FIO2 = 53% Patient Temp: 36.2 C Sample Type = ARTERIAL Ordering Provider: MAZIN ARREDONDO Report Released Date/Time: Jul 03, 2024 01:48 PM Reporting Lab: [facility] [address] Performing Lab: [facility] [phone] POC PH 7.280 L 7.35-7.45 POC PCO2 [...] mm[Hg] 80.0-105.0 Jul 03, 2024 06:15 AM [facility] URINALYSIS Specimen Type: URINE No comment entered. Ordering Provider: PALMIRA POWELL Report Released Date/Time: Jun 12, 2024 04:01 PM Reporting Lab: [facility] [phone] Performing Lab: [facility] [phone] URINE COLOR YELLOW SPECIFIC GRAVITY 1.031 1.003-1.03 [...] 250 NEGATIVE Jul 03, 2024 06:13 AM [facility] CBC Specimen Type: BLOOD No comment entered. Ordering Provider: PALMIRA POWELL Report Released Date/Time: Jun 12, 2024 03:59 PM Reporting Lab: [facility] [phone] Performing Lab: [facility] [phone] WBC 15.8 H 4.0-11.0 RBC 5.11 4.60-6.20 HGB 16.1 g/dL 13.5-17.9 HCT 49.1 41.0-54.0 MCV 96.1 fL 80.0-100.0 MCH 31.5 pg 27.0-33.0 MCHC 32.8 g/dL 32.0-37.5 PLT 357 150-400 MPV 9.8 fL 9.1-13.0 RDW 13.7 11.5-14.5 Jun 24, 2024 09:50 AM [facility] BASIC METABOLIC PANEL+MG Specimen Type: PLASMA Comment: Specimen received in Lab at: [id number] Ordering Provider: JEVON ZAZUETA Report Released Date/Time: Jun 23, 2024 06:07 PM Reporting Lab: [facility] [phone] Performing Lab: [facility] [phone] CREATININE 0.8 mg/dL 0.7-1.2 UREA NITROGEN 13 mg/dL 8-26 GLUCOSE 135 mg/dL H 70-100 SODIUM 135 mmol/L L 136-145 POTASSIUM 3.6 mmol/L 3.5-5.1 CHLORIDE 103 mmol/L 98-107 CO2 24 mmol/L 22-29 CALCIUM 9.2 mg/dL 8.4-10.2 MAGNESIUM 1.9 mg/dL 1.6-2.6 ANION GAP 8 mmol/L 5-15 .CREAT EGFR(CKD-EPI) >90 >60 Jun 24, 2024 09:50 AM [facility] CBC Specimen Type: BLOOD Comment: Specimen received in Lab at: [id number] Ordering Provider: JEVON ZAZUETA Report Released Date/Time: Jun 23, 2024 06:07 PM Reporting Lab: [facility] [phone] Performing Lab: [facility] [phone] WBC 15.5 H 4.0-11.0 RBC 4.93 4.60-6.20 HGB 15.2 g/dL 13.5-17.9 HCT 46.5 41.0-54.0 MCV 94.3 fL 80.0-100.0 MCH 30.8 pg 27.0-33.0 MCHC 32.7 g/dL 32.0-37.5 PLT 223 150-400 MPV 11.4 fL 9.1-13.0 RDW 13.9 11.5-14.5 Jun 23, 2024 07:52 AM [facility] COMPREHENSIVE METABOLIC PANEL+MG Specimen Type: PLASMA No comment entered. Ordering Provider: JEVON ZAZUETA Report Released Date/Time: Jun 22, 2024 05:51 PM Reporting Lab: [facility] [phone] Performing Lab: [facility] [phone] CREATININE 0.7 mg/dL 0.7-1.2 UREA NITROGEN 16 [...] >90 >60 Jun 23, 2024 07:52 AM [facility] CBC & DIFF Specimen Type: BLOOD Comment: Automated Differential Performed Ordering Provider: JEVON ZAZUETA Report Released Date/Time: Jun 22, 2024 05:51 PM Reporting Lab: [facility] [phone] Performing Lab: [facility] [phone] WBC 14.9 H 4.0-11.0 RBC 5.09 4.60-6.20 [...] 0.1 0.0-0.1 Jun 22, 2024 06:10 PM [facility] CBC Specimen Type: BLOOD No comment entered. Ordering Provider: JEVON ZAZUETA Report Released Date/Time: Jun 22, 2024 05:51 PM Reporting Lab: [facility] [phone] Performing Lab: [facility] [phone] WBC 16.9 H 4.0-11.0 RBC 5.28 4.60-6.20 HGB 16.9 g/dL 13.5-17.9 HCT 50.4 41.0-54.0 MCV 95.5 fL 80.0-100.0 MCH 32.0 pg 27.0-33.0 MCHC 33.5 g/dL 32.0-37.5 PLT 223 150-400 MPV 10.9 fL 9.1-13.0 RDW 14.0 11.5-14.5 Jun 22, 2024 06:10 PM [facility] COMPREHENSIVE METABOLIC PANEL+MG Specimen Type: PLASMA No comment entered. Ordering Provider: JEVON ZAZUETA Report Released Date/Time: Jun 22, 2024 05:51 PM Reporting Lab: [facility] [phone] Performing Lab: [facility] [phone] CREATININE 0.7 mg/dL 0.7-1.2 UREA NITROGEN 17 [...] >90 >60 Jun 21, 2024 06:48 PM [facility] URINALYSIS Specimen Type: URINE No comment entered. Ordering Provider: DELIA MARTINEZ Report Released Date/Time: Jun 21, 2024 05:45 PM Reporting Lab: [facility] [address] Performing Lab: [facility] [address] URINE COLOR YELLOW SPECIFIC GRAVITY 1.041 H [...] 500 NEGATIVE Jun 21, 2024 05:34 PM [facility] POC CREATININE Specimen Type: BLOOD No comment entered. Ordering Provider: DELIA MARTINEZ Report Released Date/Time: Jun 21, 2024 06:07 PM Reporting Lab: [facility] [address] Performing Lab: [facility] [address] POC CREATININE 1.1 mg/dL 0.6-1.3 Jun 21, 2024 05:30 PM [facility] POC ABG/LACTATE Specimen Type: VENOUS BLOOD No comment entered. Ordering Provider: DELIA MARTINEZ Report Released Date/Time: Jun 21, 2024 06:07 PM Reporting Lab: [facility] [address] Performing Lab: [facility] [address] POC PH 7.470 H 7.31-7.41 POC PCO2 31.2 mm[Hg] L 41.00-51 .0 0 POC PO2 46 mm[Hg] H 35.0-40.0 POC TCO2 24 mmol/L 24.0-29.0 POC HCO3 22.7 mmol/L L 23.0-28.0 POC BE ECT -1 mmol/L POC SO2 85 H 70-75 POC LACTATE 1.85 mmol/L 0.90-1.70 Jun 21, 2024 05:24 PM [facility] PROTHROMBIN TIME/INR Specimen Type: PLASMA No comment entered. Ordering Provider: DELIA MARTINEZ Report Released Date/Time: Jun 21, 2024 05:30 PM Reporting Lab: [facility] [address] Performing Lab: [facility] [address] .INR 1.2 H 0.8-1.1 .PT 13.9 s H 9.4-12.5 Jun 21, 2024 05:24 PM [facility] LIPASE Specimen Type: PLASMA No comment entered. Ordering Provider: DELIA MARTINEZ Report Released Date/Time: Jun 21, 2024 05:30 PM Reporting Lab: [facility] [address] Performing Lab: [facility] [address] LIPASE 32 U/L <60 Jun 21, 2024 05:24 PM [facility] EXTRA GOLD GEL TUBE Specimen Type: SERUM No comment entered. Ordering Provider: DELIA MARTINEZ Report Released Date/Time: Jun 21, 2024 05:41 PM Reporting Lab: [facility] [address] Performing Lab: [facility] [address] EXTRA GOLD GEL TUBE RECEIVED Jun 21, 2024 05:24 PM [facility] COMPREHENSIVE METABOLIC PANEL+MG Specimen Type: PLASMA No comment entered. Ordering Provider: DELIA MARTINEZ Report Released Date/Time: Jun 21, 2024 05:30 PM Reporting Lab: [facility] [address] Performing Lab: [facility] [address] CREATININE 0.9 mg/dL 0.7-1.2 UREA NITROGEN 29 [...] mg/dL <0.5 Jun 21, 2024 05:24 PM [facility] CBC & DIFF Specimen Type: BLOOD Comment: Manual Differential Performed Ordering Provider: DELIA MARTINEZ Report Released Date/Time: Jun 21, 2024 05:30 PM Reporting Lab: [facility] [address] Performing Lab: [facility] [address] WBC 21.3 H 4.0-11.0 RBC 5.48 4.60-6.20 [...] 16, 2024 12:17 PM 0 JAIME LOZANO [facility] Social History: Smoking Status (Most current) [...] 15, 2024 08:30 AM VA-TOBACCO [facility] 15 YRS OR MORE [facility] May 06, 2023 11:30 AM VA-TOBACCO FORMER USER [facility] May 06, 2023 11:30 AM [...] this document. The data comes from all [place] facilities. Date Advance Directives Provider Source Mar [...] PM CHEST 1 VIEW: FLACA WEAVER YAMIL [id number] -1950 M Exm Date: JUL 18, 2024@18:15 Req Phys: LEISA GOLDEN Loc: 07-18-2024@19:00 Img Loc: MAIN X-RAY Service: PRIMARY [place] [address] (Case [id number] COMPLETE) CHEST 1 VIEW (RAD Detailed) CPT:36728 Proc Modifiers : PORTABLE EXAM Reason for Study: SOB Clinical History: IS NOT under investigation for COVID-19 or is COVID-19 negative 73 yo with SOB Responsible provider name and phone number to notify for critical findings if other than user placing the order and pager listed below: User placing orders pager: [phone] LAST CREATININE 1.2 (07/17/24) Report Status: Verified Date Reported: JUL 18, 2024 Date Verified: JUL 18, 2024 Blade Grinder E-Sig:/ES/CARLOS A CUNNINGHAM DO Report: EXAMINATION: CHEST 1 VIEW Reason for Study: SOB IS NOT under investigation for COVID-19 or is COVID-19 negative 73 yo with SOB Responsible provider name and phone number to notify for critical findings if other than user placing the order and pager listed below: User placing orders pager: [phone] LAST CREATININE 1.2 (07/17/24) SOB TECHNIQUE: Single [...] Interpreting Staff: CARLOS A CUNNINGHAM DO, RADIOLOGIST (Blade Grinder) /KMB CARLOS A CUNNINGHAM [facility] Jul 16, 2024 07:49 AM ON LICENSE OF [facility] CT ABDOMEN/PELVIS: FLACA WEAVER [id number] -1950 M Exm Date: JUL 16, 2024@07:49 Req Phys: JATINEDR CABRERA Loc: 07-17-2024@09:02 Img Loc: OUTSOURCE CT Service: Unknown (Case [id number] COMPLETE) ON LICENSE OF [facility] CT ABDOMEN/PELVIS (CT Detailed) CPT:32504 Reason for Study: outside study Clinical History: outside study Report Status: Electronically Filed Date Reported: JUL 17, 2024 Report: This is an outside Imaging study and/or report imported for continuity of patient care. This Imaging study and/or report was not reviewed or verified by a [place] Radiologist. Impression: This is an outside Imaging study and/or report imported for continuity of patient care. This Imaging study and/or report was not reviewed or verified by a [place] Radiologist. Primary Diagnostic Code: VERIFIED BY: / *ELECTRONICALLY FILED* [facility] Jul 13, 2024 09:41 AM ON LICENSE OF [facility] CT ABDOMEN/PELVIS: FLACA WEAVER [id number] -1950 M Exm Date: JUL 13, 2024@09:41 Req Phys: JATINDER CABRERA Loc: 07-17-2024@09:08 Img Loc: OUTSOURCE CT Service: Unknown (Case [id number] COMPLETE) NON [place] CT ABDOMEN/PELVIS (CT Detailed) CPT:96755 Reason for Study: outside study Clinical History: outside study Report Status: Electronically Filed Date Reported: JUL 17, 2024 Report: This is an outside Imaging study and/or report imported for continuity of patient care. This Imaging study and/or report was not reviewed or verified by a [place] Radiologist. Impression: This is an outside Imaging study and/or report imported for continuity of patient care. This Imaging study and/or report was not reviewed or verified by a [place] Radiologist. Primary Diagnostic Code: VERIFIED BY: / *ELECTRONICALLY FILED* [facility] Jul 08, 2024 10:09 AM CHEST 2 VIEWS PA AND LAT: FLACA WEAVER [id number] -1950 M Exm Date: JUL 08, 2024@10:09 Req Phys: KATELYNN PERSON [facility] Loc: [facility]/07-08-2024@11:49 Img Loc: MAIN X-RAY Service: [place] [address] (Case 24 COMPLETE) CHEST 2 VIEWS PA AND LAT (RAD Detailed) CPT:34258 Reason for Study: Uptrending WBC, POD 5 [...] 08, 2024 Date Verified: JUL 08, 2024 Blade Grinder E-Sig: Report: CHEST 2 VIEWS PA [...] cardiopulmonary disease. READING PHYSICIAN: Sarbjit Vaughn M.D. -[phone] 07/08/2024 12:46 EST [facility] National Teleradiology Program [phone] (For Medical Practitioner Use Only) Attention Patients / Veterans: If you have questions or concerns about these test results, please contact your ordering provider or primary care team. Primary Interpreting Staff: RADIOLOGY,OUTSIDE SERVICE, Staff Physician / RADIOLOGY,OUTSIDE SERVICE [facility] Jul 08, 2024 10:[address] (AP) ABDOMEN/PELVIS W CONTRAST: FLACA WEAVER [id number] -1950 M Exm Date: JUL 08, 2024@10:00 Req Phys: KATELYNN PERSON Pat Loc: [facility]/07-08-2024@12:07 Img Loc: CT IMAGING Service: [place] [address] (Case [id number] COMPLETE) CT (AP) ABDOMEN/PELVIS W CONTRAST(CT Detailed) CPT:63674 Contrast Media : Non-ionic Iodinated Reason for [...] .CREAT EGFR(CKD-E >90 Ref: >=60 Allergies: ([place] only) TERAZOSIN (Mar 13, 2015) Report Status: Verified Date Reported: JUL 08, 2024 Date Verified: JUL 08, 2024 Blade Grinder E-Sig: Report: CT (AP) ABDOMEN/PELVIS W [...] as noted above READING PHYSICIAN: Celestino Blanc -[phone] 07/08/2024 13:04 EST [facility] National Teleradiology Program [phone] (For Medical Practitioner Use Only) Attention Patients / Veterans: If you have questions or concerns about these test results, please contact your ordering provider or primary care team. Primary Interpreting Staff: RADIOLOGY,OUTSIDE SERVICE, Staff Physician / RADIOLOGY,OUTSIDE SERVICE [facility] Jun 22, 2024 11:49 AM ABSCESS DRAIN PLACEMENT PERITONEAL (P): FLACA WEAVER [id number] -1950 M Exm Date: JUN 22, 2024@11:49 Req Phys: ADINAANGELA Maeve Patel Loc: [facility]/06-22-2024@17:14 Img Loc: INTERVENTIONAL RADIOLOGY Service: [place] [address] (Case [id number] COMPLETE) IR PERITONEAL/RETROPERITONEAL PER(ANI Detailed) CPT:40119 Reason for Study: diverticulitis with abscess (Case [id number] COMPLETE) IR MOD SEDATION 10-22 MIN (ANI Detailed) CPT:27794 Clinical History: IS NOT under investigation for COVID-19 or is COVID-19 negative 73 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 please place abscess drain. Contact number for responsible provider who can be reached for any questions or notifications of critical findings: [phone] n/a LAST CREATININE 0.9 (06/21/24) Report Status: Verified Date Reported: JUN 22, 2024 Date Verified: JUN 22, 2024 Blade Grinder E-Sig:/ES/LISA PENDLETON MD Report: PROCEDURES: Placement [...] anesthesia. Using real-time CT fluoroscopy, a 5 Syrian Mopio centesis catheter was advanced into the collection in the left pelvis. A wire was coiled in the collection. The tract into the collection was dilated to accommodate the 12 Syrian locking pigtail drainage catheter. There was return [...] Primary Interpreting Staff: LISA PENDLETON MD, RADIOLOGIST (Blade Grinder) /JRLISA [facility] Jun 22, 2024 11:[address] NEEDLE PLACEMENT (P): FLACA WEAVER [id number] -1950 M Exm Date: JUN 22, 2024@11:48 Req Phys: ANGELA HOLDEN [facility] Loc: [facility]/06-22-2024@17:14 Img Loc: CT IMAGING Service: [place] [address] (Case [id number] COMPLETE) CT SCAN FOR NEEDLE PLACEMENT (CT Detailed) CPT:92227 Reason for Study: l pelvic abscess drain Clinical History: Report Status: Verified Date Reported: JUN 22, 2024 Date Verified: JUN 22, 2024 Blade Grinder E-Sig:/ES/LISA PENDLETON MD Report: PROCEDURES: Placement [...] anesthesia. Using real-time CT fluoroscopy, a 5 Syrian Mark mediaesis catheter was advanced into the collection in the left pelvis. A wire was coiled in the collection. The tract into the collection was dilated to accommodate the 12 Syrian locking pigtail drainage catheter. There was return [...] Primary Interpreting Staff: LISA PENDLETON MD, RADIOLOGIST (Blade Grinder) /JRT LISA PENDLETON [facility] Jun 21, 2024 06:[address] (AP) ABDOMEN/PELVIS (P): FLACA WEAVER [id number] -1950 M Exm Date: JUN 21, 2024@18:09 Req Phys: DELIA MARTINEZ Loc: [facility] (Re Img Loc: CT IMAGING Service: [place] [address] (Case [id number] COMPLETE) CT (AP) ABDOMEN/PELVIS W CONTRAST(CT Detailed) CPT:27486 Contrast Media : Non-ionic Iodinated Reason for [...] .CREAT EGFR(CKD-E >90 Ref: >=60 Allergies: ([place] only) TERAZOSIN (Mar 13, 2015) Defer to [...] 21, 2024 Date Verified: JUN 21, 2024 Blade Grinder E-Sig:/ES/CARLOS A CUNNINGHAM DO Report: EXAMINATION: [...] Interpreting Staff: CARLOS A CUNNINGHAM DO, RADIOLOGIST (Blade Grinder) /CARLOS A ROWELL [facility] Pathology Reports: +/- 30 [...] PM LR MICROBIOLOGY RE PORT: Reporting Lab: [facility] [CLIA# [id number]] [place] [address] Accession [UID]: [id number] [[id number]] Received: Jul 16, 2024@14:41 Collection sample: BLOOD Collection date: Jul 16, 2024 14:07 Provider: LEISA GOLDEN Comment on specimen: R AC, RECEIVED 2 BLOOD CULTURE BOTTLES Test(s) ordered: CULTURE & SUSCEPTIBILITY...... completed: Jul 22, 2024 * BACTERIOLOGY FINAL REPORT => Jul 22, 2024 13:39 TECH CODE: 23702 CULTURE RESULTS: NO GROWTH 5 DAYS Bacteriology Remark(s): THIS REPORT IS FINAL =--=--=--=--=--=--=--=--=--= --=--=--=--=--=--=--=--=--=- -=--=--=--=--=--=--=-- Performing Laboratory: Bacteriology Report Performed By: [facility] [CLIA# [id number]] [place] [address] [facility] Jul 16, 2024 01:54 PM LR MICROBIOLOGY RE PORT: Reporting Lab: [facility] [CLIA# [id number]] [place] [address] Accession [UID]: [id number] [[id number]] Received: Jul 16, 2024@14:41 Collection sample: BLOOD Collection date: Jul 16, 2024 13:54 Provider: LEISA GOLDEN Comment on specimen: L AC, RECEIVED 2 BLOOD CULTURE BOTTLES Test(s) ordered: CULTURE & SUSCEPTIBILITY...... completed: Jul 22, 2024 * BACTERIOLOGY FINAL REPORT => Jul 22, 2024 13:39 TECH CODE: [id number] CULTURE RESULTS: NO GROWTH 5 DAYS Bacteriology Remark(s): THIS REPORT IS FINAL =--=--=--=--=--=--=--=--=--= --=--=--=--=--=--=--=--=--=- -=--=--=--=--=--=--=-- Performing Laboratory: Bacteriology Report Performed By: [facility] [CLIA# [id number]] [place] [address] [facility] Jul 03, 2024 05:59 AM LR SURGICAL PATHOL OGY REPORT: LOCAL TITLE: LR SURGICAL PATHOLOGY REPORT STANDARD TITLE: PATHOLOGY REPORT DATE OF NOTE: JUL 06, 2024@10:40:48 ENTRY DATE: JUL 06, 2024@10:40:48 AUTHOR: EDUARDO PALOMARES EXP COSIGNER: URGENCY: STATUS: COMPLETED $APHDR Reporting Lab: [facility] [CLIA# [id number]] [place] [address] - - - - - - - [...] - PATHOLOGY REPORT Accession No. [id number] - - - - - - - [...] - PATHOLOGY REPORT Accession No. [id number] - - - - - - - [...] Second circumferential surgical margin, en face; E-F: Luggage Attendant diverticula; G: Luggage Attendant section of mesentery; H: Random chain sales [...] One colonic tissue ring, bisected transversely. [facility]. [facility]: Microscopic examination performed. DIAGNOSIS: 1. Colon, sigmoid, sigmoidectomy-- - Diverticulosis with perforation and focal abscess formation 2. Colon, anastomotic rings, excision-- - Viable colonic mucosa without diagnostic abnormality /es/ EDUARDO PALOMARES MD STAFF PATHOLOGIST Signed Jul 06, 2024@10:40 Performing Laboratory: Surgical Pathology Report Performed By: [facility] [CLIA# [id number]] [place] [address] $FTR - - - - - - [...] - - FLACA WEAVER STANDARD FORM 515 ID:[id number] SEX:M :1950 AGE: 73 LOC:41866 ADM:Jun DX:DIVERTICULITIS PCP: Jatinder Cabrera /alexi/ EDUARDO PALOMARES MD STAFF PATHOLOGIST Signed: 07/06/2024 10:40 EDUARDO PALOMARES [facility] Jun 22, 2024 01:15 PM LR MICROBIOLOGY RE PORT: Reporting Lab: [facility] [CLIA# [id number]] [place] [address] Accession [UID]: [id number] [[id number]] Received: Jun 22, 2024@13:38 Collection sample: FLUID Collection date: Jun 22, 2024 13:15 Provider: ANGELA HOLDEN Comment on specimen: LLQ ABSCESS, RECEIVED IN ANAEROBIC TRANSPORT VIAL Test(s) ordered: GRAM STAIN.................... completed: Jun 22, 2024 15:03 CULTURE & SUSCEPTIBILITY...... completed: Jun 25, 2024 * BACTERIOLOGY FINAL REPORT => Jun 25, 2024 10:56 TECH CODE: 62405 GRAM STAIN: DIRECT SMEAR of specimen before [...] -=--=--=--=--=--=--=-- Performing Laboratory: Bacteriology Report Performed By: [facility] [CLIA# [id number]] [address] [facility] Jun 22, 2024 01:15 PM LR MICROBIOLOGY RE PORT: Reporting Lab: [facility] [CLIA# [id number]] [address] Accession [UID]: [id number] [[id number]] Received: Jun 22, 2024@13:38 Collection sample: FLUID Collection date: Jun 22, 2024 13:15 Provider: ANGELA HOLDEN Comment on specimen: LLQ ABSCESS, RECEIVED IN ANAEROBIC TRANSPORT VIAL Test(s) ordered: ANAEROBIC CULTURE............. completed: Jun 28, 2024 * BACTERIOLOGY FINAL REPORT => Jun 28, 2024 10:08 TECH CODE: 35079 CULTURE RESULTS: HEAVY GROWTH MIXED ANAEROBES Comment: including the followin+ Bacteroides fragilis 4+ Bacteroides vulgatus 4+ Clostridium innocuum Beta-lactamase negative 4+ Bacteroides caccae 4+ Parvimonas micra 4+ Bacteroides uniformis 4+ Gemella morbillorum 4+ anaerobic small, Gram Positive Rods 4+ Bacteroides thetaiotaomicron Standard workup is now complete. Bacteriology Remark(s): THIS REPORT IS FINAL =--=--=--=--=--=--=--=--=--= --=--=--=--=--=--=--=--=--=- -=--=--=--=--=--=--=-- Performing Laboratory: Bacteriology Report Performed By: [facility] [CLIA# [id number]] [place] [address] [facility] Jun 21, 2024 06:12 PM LR MICROBIOLOGY RE PORT: Reporting Lab: [facility] [IA# [id number]] [place] [address] Accession [UID]: [id number] [[id number]] Received: Jun 21, 2024@18:12 Collection sample: BLOOD [...] -=--=--=--=--=--=--=-- Performing Laboratory: Bacteriology Report Performed By: [facility] [CLIA# [id number]] [place] [address] [facility] Jun 21, 2024 06:11 PM LR MICROBIOLOGY RE PORT: Reporting Lab: [facility] [CLIA# [id number]] [place] [address] Accession [UID]: [id number] [[id number]] Received: Jun 21, 2024@18:11 Collection sample: BLOOD [...] -=--=--=--=--=--=--=-- Performing Laboratory: Bacteriology Report Performed By: [facility] [CLIA# [id number]] [place] [address] [facility] Encounter Notes: All associated encounter notes This section contains the clinical notes associated to the Encounter. Date/Time Encounter Note(s) Provider Source Jul 17, 2024 09:40 AM ADDENDUM: LOCAL TITLE: Addendum STANDARD TITLE: ADDENDUM DATE OF NOTE: JUL 17, 2024@09:40:21 ENTRY DATE: JUL 17, 2024@09:40:21 AUTHOR: SHAHNAZ ALAS EXP COSIGNER: URGENCY: STATUS: COMPLETED Discharge records received and uploaded for review through [facility]. Please note inpatient documentation for details related to care at [facility]. /alexi/ Shahnaz Alas, FINANCIAL CONSULTANT film technician Health Information Specialist Signed: 07/17/2024 09:41 Receipt Acknowledged By: 07/17/2024 10:51 /alexi/ SAMMY RAMOS, RN REGISTERED NURSE for GUERITA AGUILA --- Original Document --- 07/16/24 [facility] PRESENTING CARE COORD PLAN NOTE: Emergency Notification Intake Date Presenting to the Facility: Jun Method of Contact: Phone Centralized Call Center Notified [facility] Name: Hospital: [facility] Address: City: [place] State: [place] Zip Code: Phone : [facility] Point of Contact: Name: Phone: Chief complaint: WEAKNESS, FAILURE TO THRIVE, INCISIONAL HERNIA Primary Diagnosis: Disposition Unknown at time of intake note entry Looking to transfer to [facility] Med/Surg bed. Sent it to Rn solid waste division supervisor for review. /alexi/ FARZANA GUARDADO Roller Man(AOD) Signed: 07/16/2024 08:44 Receipt Acknowledged By: 07/16/2024 10:37 /alexi/ Shahnaz Alas FINANCIAL CONSULTANT film technician Health Information Specialist 07/16/2024 ADDENDUM STATUS: COMPLETED Contact : Julio [facility] at [phone] /jerome GUARDADO Roller Man(AOD) Signed: 07/16/2024 08:48 07/16/2024 ADDENDUM STATUS: COMPLETED I was alerted to the transfer-in request via the AOD TEAMS Chat thread. I made contact with the requesting practitioner listed in the chat thread. VIJI Kim @ [facility]'s ED, . I spoke to the [place] [facility] Charge Nurse who provided me a synopsis of the patient's presentation symptoms, current vital signs, and tests performed. I notified the Bed Coordinator of the patient presenting symptoms and [facility] behavioral flag, noting that the patient currently is not exhibiting any behavioral issues while in their ED. The Bed Coordinator indicated we could accommodate the request provided the MOD accepted. I conferenced Charles Brown JR Willie and Palmira Moore. The [facility] MOD was able to ask necessary questions following the patient presentation by the [place] [facility] MD. Dr. Soto accepted the patient to a Med Bed. The Bed Coordinator indicated the patient will go to . I contacted the [place] Julio HALLMAN and authorized them to transfer the patient. I provided her 3E's phone number and asked that the charge nurse provide [id number] report prior to the patient's departure, she affirmed that would happen. She also indicated that ground transportation would arrive to collect the patient around 1200hrs, and therefore should arrive at the [facility] around 1230 to 1300hrs contingent upon traffic. I alerted the Bed Coordinator of the patient's ETA. I printed the IFC to the AOD's printer and alerted them of the ETA as well. /es/ Alex Acosta MA, PHN, RN-BC film technician Health Information Specialist Signed: 07/16/2024 12:36 07/16/2024 ADDENDUM STATUS: COMPLETED Discharge records requested via fax. Alerting PACT RN for awareness. /es/ Shahnaz Alas, FINANCIAL CONSULTANT film technician Health Information Specialist Signed: 07/16/2024 15:27 SHAHNAZ ALAS [facility] Jul 16, 2024 09:07 AM EMERGENCY DEPT TRI AGE NOTE: LOCAL TITLE: TRANSFER IN REQUEST PHYSICIAN NOTE STANDARD TITLE: EMERGENCY DEPT TRIAGE NOTE DATE OF NOTE: JUL 16, 2024@09:07 ENTRY DATE: JUL 16, 2024@09:08:14 AUTHOR: NA SOTO JR EXP COSIGNER: URGENCY: STATUS: COMPLETED TRANSFER IN REQUEST PHYSICIAN NOTE Has ADDENDA PATIENT ADDRESS: [address] [place] [address] PHONE: Patient/guardian consents to transfer. Referring physician certifies that benefit of transfer outways risk. From:[place] [facility] Sending Facility Provider/Title/Pager: Dr. Palmira Moore and Dr. Covarrubias. ER number [id number] Accepting Facility Provider/Designee/Pager: Na Soto Jr. MOD Pager Requested Date/Time: JUL 16, 2024 09:08 Reason for Referral/Assessment: Nausea, FTT, Recent extensive surgery for divertculitis with Sigmoid colectomy with diverting loop colostomy. Weight loss. Liquid stools with negative C. diff. SUMMARY OF CARE: Allergies: TERAZOSIN (Mar 13, 2015) Vital Signs: Temp: 96.5 B.P. 138/70 Pulse: 59 Resp: 20 02 Sats: 96% on room air Significant Clinical Findings, Labs, Baseline Medical Evaluation: Initially tachycardic in 110s. Weak Interventions done at the Referring Facility: Given 1 L LR. Will be started on vancomycin and Zosyn Labs: WBC 23, plts 589k, lactate 3.9 --> 1.6, Cr 2.9, Na 123, K 4.7 AG 18, C. diff negative, blood cultures drawn Medications Administered: Metoclopramide for nausea IV Fluid/O2 Administered: 1 L NS Imaging: CT: new incisional hernia, no specific abnormalities noticed in anastomosis. No evidence of incarceration. Assessment: # C/f sepsis # MIGUE # Hyponatremia, chronic. Previously 128 on 07/13 # Liquid stools # Lactic acidosis # New incisional hernia Patient with recent [facility] Presented to [facility] ED with nausea, losse stools, and found to be hyponatremic, c/f sepsis, has new MIGUE, and lactic acidosis improved with 1 L NS. - ED to start vanc and Zosyn - Additional liter started at OSH - Blood cultures drawn at OSH - Will need Na monitoring - Sepsis workup Telephone Report called to: Time Spent: Medically Stable: YES Behaviorally Stable: NO History of violence or agitation: NO Level of Care Prior to Transfer at [facility]: ER Level of Care Required at [facility]: Medical Unit Mode of Transfer: ALS Ambulance Treatment Required During Transfer: IV antibiotics IV Fluids: Yes, 1 L NS Any medications required during transfer? Yes, Vancomycin and Zosyn Reports requested/received from referring facility: Health Summary, Med Profile, ER Reports, Progress Notes Planned Arrival Date/Time: Jun@12:00 /alexi/ NA SOTO JR CHIEF RESIDENT- FEE BASIS PHYSICIAN Signed: 07/16/2024 09:41 07/16/2024 ADDENDUM STATUS: COMPLETED Patient is hemodynamically stable, mental status is stable. He has some weakness. C. diff testing negative at the [place] ED. Stable for transfer per ED provider. Patient to be transfered by ambulance. /jerome SOTO JR CHIEF RESIDENT- FEE BASIS PHYSICIAN Signed: 07/16/2024 09:46 NA SOTO JR [facility] Jul 16, 2024 08:41 AM NONVA NOTE: LOCAL TITLE: COMMUNITY CARE-AMNA SELF PRESENTING CARE COORD PLAN STANDARD TITLE: NONVA NOTE DATE OF NOTE: JUL 16, 2024@08:41 ENTRY DATE: JUL 16, 2024@08:41:38 AUTHOR: FARZANA GUARDADO EXP COSIGNER: URGENCY: STATUS: COMPLETED COMMUNITY CARE-AMNA SELF PRESENTING CARE COORD PLAN NOTE Has ADDENDA Emergency Notification Intake Date Presenting to the Facility: Jun Method of Contact: Phone Centralized Call Center Notified Name: Hospital: [facility] Address: City: [place] State: [place] Zip Code: Phone : [facility] Point of Contact: Name: Phone: Chief complaint: WEAKNESS, FAILURE TO THRIVE, INCISIONAL HERNIA Primary Diagnosis: Disposition Unknown at time of intake note entry Looking to transfer to [facility] Med/Surg bed. Sent it to Rn solid waste division supervisor for review. /jerome GUARDADO Roller Man(AOD) Signed: 07/16/2024 08:44 Receipt Acknowledged By: 07/16/2024 10:37 /alexi/ Shahnaz Alas FINANCIAL CONSULTANT film technician Health Information Specialist 07/16/2024 ADDENDUM STATUS: COMPLETED Contact : [facility] at [phone] /jerome GUARDADO Roller Man(AOD) Signed: 07/16/2024 08:48 07/16/2024 ADDENDUM STATUS: COMPLETED I was alerted to the transfer-in request via the AOD TEAMS Chat thread. I made contact with the requesting practitioner listed in the chat thread. VIJI Kim @ [facility]'s ED, . I spoke to the [place] [facility] Charge Nurse who provided me a synopsis of the patient's presentation symptoms, current vital signs, and tests performed. I notified the Bed Coordinator of the patient presenting symptoms and [facility] behavioral flag, noting that the patient currently is not exhibiting any behavioral issues while in their ED. The Bed Coordinator indicated we could accommodate the request provided the MOD accepted. I conferenced Charles Brown JR Willie and Palmira Moore. The [facility] MOD was able to ask necessary questions following the patient presentation by the [place] ED MD. Dr. Soto accepted the patient to a [facility] Bed. The Bed Coordinator indicated the patient will go to . I contacted the [facility], Julio and authorized them to transfer the patient. I provided her 3E's phone number and asked that the charge nurse provide [id number] report prior to the patient's departure, she affirmed that would happen. She also indicated that ground transportation would arrive to collect the patient around 1200hrs, and therefore should arrive at the [facility] around 1230 to 1300hrs contingent upon traffic. I alerted the Bed Coordinator of the patient's ETA. I printed the IFC to the AOD's printer and alerted them of the ETA as well. /alexi/ Alex Acosta MA, PHN, RN-BC film technician Health Information Specialist Signed: 07/16/2024 12:36 07/16/2024 ADDENDUM STATUS: COMPLETED Discharge records requested via fax. Alerting PACT RN for awareness. /alexi/ Shahnaz Alas FINANCIAL CONSULTANT film technician Health Information Specialist Signed: 07/16/2024 15:27 07/17/2024 ADDENDUM STATUS: COMPLETED Discharge records received and uploaded for review through [facility]. Please note inpatient documentation for details related to care at [facility]. /alexi/ Shahnaz Alas, FINANCIAL CONSULTANT film technician Health Information Specialist Signed: 07/17/2024 09:41 Receipt Acknowledged By: 07/17/2024 10:51 /alexi/ SAMMY RAMOS, RN REGISTERED NURSE for GUERITA AGUILA 07/17/2024 ADDENDUM STATUS: COMPLETED hospital notification id:[id number] /alexi/ NATHEN POWELL AIRCRAFT MAINTENANCE INSTRUCTOR Signed: 07/17/2024 13:21 FARZANA GUARDADO [facility]
--- OUTSIDE RECORDS SUMMARY | 2024-08-01 07:52 | XMS_ITS | Encounter Summary ---
Author Name [facility] [place] [facility] [place] Address [address] [place] [address] Care Team Providers Care Factory Worker Name Role Phone JATINDER CABRERA Primary [...] PART A Sep 29, 2016 PART A [id number] [phone] JUDY WEAVER PATIENT Selected Encounter This section includes the information on record at OR for the Encounter. Date/Time Encounter Type Encounter Description Reason Pro vider Source Jul 30, 2024 05:05 PM Outpatient Encounter ADMIN PAT ACTIVTIES (MASNONCT) [...] Order TYPE & SCREEN - LAB BLOOD [facility] Jul 03, 2024 12:00 AM Laboratory - Blood Bank Order TYPE & SCREEN - LAB BLOOD [facility] Jul 16, 2024 [...] Comment Jul 21, 2024 10:[address] [facility] BASIC METABOLIC PANEL+MG Specimen Type: PLASMA No comment entered. Ordering Provider: SARAI GOLDEN Report Released Date/Time: Jul 20, 2024 06:50 PM Reporting Lab: [facility] [address] Performing Lab: [facility] [address] CREATININE 0.8 mg/dL 0.7-1.2 UREA NITROGEN 31 mg/dL H 8-26 GLUCOSE 120 mg/dL H 70-100 SODIUM 125 mmol/L L 136-145 POTASSIUM 4.4 mmol/L 3.5-5.1 CHLORIDE 100 mmol/L 98-107 CO2 17 mmol/L L 22-29 CALCIUM 9.6 mg/dL 8.4-10.2 MAGNESIUM 1.9 mg/dL 1.6-2.6 ANION GAP 8 mmol/L 5-15 .CREAT EGFR(CKD-EPI) >90 >60 Jul 21, 2024 10:[address] [facility] CBC Specimen Type: BLOOD No comment entered. Ordering Provider: SARAI GOLDEN Report Released Date/Time: Jul 20, 2024 06:50 PM Reporting Lab: [facility] [address] Performing Lab: [facility] [address] WBC 16.0 H 4.0-11.0 RBC 5.16 4.60-6.20 HGB 15.8 g/dL 13.5-17.9 HCT 45.5 41.0-54.0 MCV 88.2 fL 80.0-100.0 MCH 30.6 pg 27.0-33.0 MCHC 34.7 g/dL 32.0-37.5 PLT 428 H 150-400 MPV 10.8 fL 9.1-13.0 RDW 13.6 11.5-14.5 Jul 20, 2024 01:[address] [facility] SODIUM,URINE RANDOM Specimen Type: URINE No comment entered. Ordering Provider: SARAI GOLDEN Report Released Date/Time: Jul 20, 2024 08:22 AM Reporting Lab: [facility] [address] Performing Lab: [facility] [address] SODIUM,URINE RANDOM <20 mmol/L Jul 20, 2024 01:[address] [facility] OSMOLALITY,URINE Specimen Type: URINE No comment entered. Ordering Provider: SARAI GOLDEN Report Released Date/Time: Jul 20, 2024 08:22 AM Reporting Lab: [facility] [address] Performing Lab: [facility] [address] OSMOLALITY,URIN E 648 mosm/kg 500-800 Jul 20, 2024 06:[address] [facility] BASIC METABOLIC PANEL+MG Specimen Type: PLASMA No comment entered. Ordering Provider: SARAI GOLDEN Report Released Date/Time: Jul 19, 2024 06:13 PM Reporting Lab: [facility] [address] Performing Lab: [facility] [address] CREATININE 0.8 mg/dL 0.7-1.2 UREA NITROGEN 36 mg/dL H 8-26 GLUCOSE 111 mg/dL H 70-100 SODIUM 121 mmol/L L 136-145 POTASSIUM 4.1 mmol/L 3.5-5.1 CHLORIDE 99 mmol/L 98-107 CO2 14 mmol/L L 22-29 CALCIUM 9.5 mg/dL 8.4-10.2 MAGNESIUM 1.8 mg/dL 1.6-2.6 ANION GAP 8 mmol/L 5-15 .CREAT EGFR(CKD-EPI) >90 >60 Jul 20, 2024 06:[address] [facility] CBC & DIFF Specimen Type: BLOOD Comment: Automated Differential Performed Ordering Provider: SARAI GOLDEN Report Released Date/Time: Jul 19, 2024 06:13 PM Reporting Lab: [facility] [address] Performing Lab: [facility] [address] WBC 16.6 H 4.0-11.0 RBC 4.96 4.60-6.20 [...] 0.0-0.1 Jul 20, 2024 05:[address] [facility] OSMOLALITY,SERUM Specimen Type: SERUM No comment entered. Ordering Provider: SARAI GOLDEN Report Released Date/Time: Jul 20, 2024 09:47 AM Reporting Lab: [facility] [address] Performing Lab: [facility] [address] OSMOLALITY,SERU M 266 mosm/kg L 276-305 Jul 19, 2024 08:[address] [facility] BASIC METABOLIC PANEL+MG Specimen Type: PLASMA No comment entered. Ordering Provider: SARAI GOLDEN Report Released Date/Time: Jul 18, 2024 10:24 PM Reporting Lab: [facility] [address] Performing Lab: [facility] [address] CREATININE 1.0 mg/dL 0.7-1.2 UREA NITROGEN 40 mg/dL H 8-26 GLUCOSE 104 mg/dL H 70-100 SODIUM 129 mmol/L L 136-145 POTASSIUM 3.3 mmol/L L 3.5-5.1 CHLORIDE 104 mmol/L 98-107 CO2 16 mmol/L L 22-29 CALCIUM 8.0 mg/dL L 8.4-10.2 MAGNESIUM 1.7 mg/dL 1.6-2.6 ANION GAP 9 mmol/L 5-15 .CREAT EGFR(CKD-EPI) 80 >60 Jul 19, 2024 08:[address] [facility] CBC Specimen Type: BLOOD No comment entered. Ordering Provider: SARAI GOLDEN Report Released Date/Time: Jul 18, 2024 10:24 PM Reporting Lab: [facility] [address] Performing Lab: [facility] [address] WBC 17.3 H 4.0-11.0 RBC 4.83 4.60-6.20 HGB 14.8 g/dL 13.5-17.9 HCT 42.6 41.0-54.0 MCV 88.2 fL 80.0-100.0 MCH 30.6 pg 27.0-33.0 MCHC 34.7 g/dL 32.0-37.5 PLT 456 H 150-400 MPV 10.8 fL 9.1-13.0 RDW 13.7 11.5-14.5 Jul 17, 2024 06:[address] [facility] PHOSPHORUS Specimen Type: PLASMA No comment entered. Ordering Provider: SARAI GOLDEN Report Released Date/Time: Jul 17, 2024 01:54 PM Reporting Lab: [facility] [address] Performing Lab: [facility] [address] PHOSPHORUS 2.9 mg/dL 2.3-4.3 Jul 17, 2024 06:[address] [facility] BASIC METABOLIC PANEL+MG Specimen Type: PLASMA No comment entered. Ordering Provider: SARAI GOLDEN Report Released Date/Time: Jul 17, 2024 01:54 PM Reporting Lab: [facility] [address] Performing Lab: [facility] [address] CREATININE 1.2 mg/dL 0.7-1.2 UREA NITROGEN 62 mg/dL H 8-26 GLUCOSE 116 mg/dL H 70-100 SODIUM 128 mmol/L L 136-145 POTASSIUM 3.8 mmol/L 3.5-5.1 CHLORIDE 100 mmol/L 98-107 CO2 16 mmol/L L 22-29 CALCIUM 9.3 mg/dL 8.4-10.2 MAGNESIUM 2.1 mg/dL 1.6-2.6 ANION GAP 12 mmol/L 5-15 .CREAT EGFR(CKD-EPI) 64 >60 Jul 17, 2024 07:[address] [facility] CBC & DIFF Specimen Type: BLOOD Comment: Manual Differential Performed Ordering Provider: SARAI GOLDEN Report Released Date/Time: Jul 16, 2024 04:52 PM Reporting Lab: [facility] [address] Performing Lab: [facility] [address] WBC 18.9 H 4.0-11.0 RBC 5.55 4.60-6.20 [...] PRESENT Jul 17, 2024 07:[address] [facility] ALBUMIN Specimen Type: PLASMA No comment entered. Ordering Provider: SARAI GOLDEN Report Released Date/Time: Jul 16, 2024 12:12 PM Reporting Lab: [facility] [address] Performing Lab: [facility] [address] ALBUMIN 4.3 g/dL 3.5-5.0 Jul 17, 2024 07:[address] [facility] COMPREHENSIVE METABOLIC PANEL+MG Specimen Type: PLASMA No comment entered. Ordering Provider: SARAI GOLDEN Report Released Date/Time: Jul 16, 2024 04:52 PM Reporting Lab: [facility] [address] Performing Lab: [facility] [address] CREATININE 1.3 mg/dL H 0.7-1.2 UREA NITROGEN [...] >60 Jul 16, 2024 07:[address] [facility] LACTIC ACID Specimen Type: PLASMA No comment entered. Ordering Provider: SARAI GOLDEN Report Released Date/Time: Jul 16, 2024 12:12 PM Reporting Lab: [facility] [address] Performing Lab: [facility] [address] LACTIC ACID 0.9 mmol/L 0.5-2.2 Jul 16, 2024 02:[address] [facility] MRSA SURVL NARES DNA Specimen Type: NARES No comment entered. Ordering Provider: SARAI GOLDEN Report Released Date/Time: Jul 16, 2024 12:12 PM Reporting Lab: [facility] [address] Performing Lab: [facility] [address] MRSA SURVL NARES DNA NEGATIVE Negative Jul 16, 2024 02:[address] [facility] LACTIC ACID Specimen Type: PLASMA No comment entered. Ordering Provider: SARAI GOLDEN Report Released Date/Time: Jul 16, 2024 12:12 PM Reporting Lab: [facility] [address] Performing Lab: [facility] [address] LACTIC ACID 0.9 mmol/L 0.5-2.2 Jul 16, 2024 02:[address] [facility] COMPREHENSIVE METABOLIC PANEL+MG Specimen Type: PLASMA No comment entered. Ordering Provider: SARAI GOLDEN Report Released Date/Time: Jul 16, 2024 12:12 PM Reporting Lab: [facility] [address] Performing Lab: [facility] [address] CREATININE 2.0 mg/dL H 0.7-1.2 UREA NITROGEN [...] >60 Jul 16, 2024 02:[address] [facility] CBC & DIFF Specimen Type: BLOOD Comment: Manual Differential Performed Ordering Provider: SARAI GOLDEN Report Released Date/Time: Jul 16, 2024 12:12 PM Reporting Lab: [facility] [address] Performing Lab: [facility] [address] WBC 19.7 H 4.0-11.0 RBC 5.39 4.60-6.20 [...] PRESENT Jul 10, 2024 07:[address] [facility] PHOSPHORUS Specimen Type: PLASMA No comment entered. Ordering Provider: JUANCARLOS ECHOLS S Report Released Date/Time: Jul 09, 2024 12:23 PM Reporting Lab: [facility] [address] Performing Lab: [facility] [address] PHOSPHORUS 3.0 mg/dL 2.3-4.3 Jul 10, 2024 07:[address] [facility] BASIC METABOLIC PANEL+MG Specimen Type: PLASMA No comment entered. Ordering Provider: JUANCARLOS ECHOLS S Report Released Date/Time: Jul 09, 2024 12:23 PM Reporting Lab: [facility] [address] Performing Lab: [facility] [address] CREATININE 0.7 mg/dL 0.7-1.2 UREA NITROGEN 27 [...] Reporting Lab: [facility] [address] Performing Lab: [facility] [address] WBC 18.8 H 4.0-11.0 RBC 5.08 4.60-6.20 [...] Reporting Lab: [facility] [address] Performing Lab: [facility] [address] WBC 15.3 H 4.0-11.0 RBC 4.91 4.60-6.20 [...] Reporting Lab: [facility] [address] Performing Lab: [facility] [address] URINE COLOR YELLOW SPECIFIC GRAVITY >1.050 H [...] Reporting Lab: [facility] [address] Performing Lab: [facility] [address] WBC 17.5 H 4.0-11.0 RBC 4.88 4.60-6.20 [...] Reporting Lab: [facility] [address] Performing Lab: [facility] [address] PHOSPHORUS 2.6 mg/dL 2.3-4.3 Jul 08, 2024 09:[address] [facility] BASIC METABOLIC PANEL+MG Specimen Type: PLASMA Comment: Specimen received in Lab at: [id number] Ordering Provider: JUANCARLOS ECHOLS S Report Released Date/Time: Jul 07, 2024 04:49 PM Reporting Lab: [facility] [address] Performing Lab: [facility] [address] CREATININE 0.9 mg/dL 0.7-1.2 UREA NITROGEN 26 [...] Reporting Lab: [facility] [address] Performing Lab: [facility] [address] C DIFF TOX B GENE PCR NEGATIVE Negative Jul 07, 2024 07:[address] [facility] PHOSPHORUS Specimen Type: PLASMA No comment entered. Ordering Provider: JEVON ZAZUETA Report Released Date/Time: Jul 06, 2024 03:44 PM Reporting Lab: [facility] [address] Performing Lab: [facility] [address] PHOSPHORUS 3.1 mg/dL 2.3-4.3 Jul 07, 2024 07:[address] [facility] BASIC METABOLIC PANEL+MG Specimen Type: PLASMA No comment entered. Ordering Provider: JEVON ZAZUETA Report Released Date/Time: Jul 06, 2024 03:44 PM Reporting Lab: [facility] [address] Performing Lab: [facility] [address] CREATININE 0.9 mg/dL 0.7-1.2 UREA NITROGEN 20 [...] Reporting Lab: [facility] [address] Performing Lab: [facility] [address] WBC 21.2 H 4.0-11.0 RBC 5.09 4.60-6.20 [...] Reporting Lab: [facility] [address] Performing Lab: [facility] [address] WBC 18.0 H 4.0-11.0 RBC 4.83 4.60-6.20 [...] Reporting Lab: [facility] [address] Performing Lab: [facility] [address] PHOSPHORUS 3.6 mg/dL 2.3-4.3 Jul 06, 2024 07:[address] [facility] BASIC METABOLIC PANEL+MG Specimen Type: PLASMA No comment entered. Ordering Provider: JEVON ZAZUETA Report Released Date/Time: Jul 05, 2024 01:22 PM Reporting Lab: [facility] [address] Performing Lab: [facility] [address] CREATININE 0.7 mg/dL 0.7-1.2 UREA NITROGEN 12 [...] Reporting Lab: [facility] [address] Performing Lab: [facility] [address] MAGNESIUM 2.0 mg/dL 1.6-2.6 Jul 05, 2024 07:[address] [facility] PHOSPHORUS Specimen Type: PLASMA No comment entered. Ordering Provider: JUANCARLOS ECHOLS S Report Released Date/Time: Jul 04, 2024 09:39 AM Reporting Lab: [facility] [address] Performing Lab: [facility] [address] PHOSPHORUS 2.0 mg/dL L 2.3-4.3 Jul 05, 2024 07:[address] [facility] BASIC METABOLIC PANEL+MG Specimen Type: PLASMA No comment entered. Ordering Provider: JUANCARLOS ECHOLS S Report Released Date/Time: Jul 04, 2024 09:39 AM Reporting Lab: [facility] [address] Performing Lab: [facility] [address] CREATININE 0.7 mg/dL 0.7-1.2 UREA NITROGEN 12 [...] Reporting Lab: [facility] [address] Performing Lab: [facility] [address] WBC 18.3 H 4.0-11.0 RBC 4.49 L 4.60-6.20 HGB 14.1 g/dL 13.5-17.9 HCT 43.4 41.0-54.0 MCV 96.7 fL 80.0-100.0 MCH 31.4 pg 27.0-33.0 MCHC 32.5 g/dL 32.0-37.5 PLT 317 150-400 MPV 10.0 fL 9.1-13.0 RDW 13.9 11.5-14.5 Jul 04, 2024 07:[address] [facility] BASIC METABOLIC PANEL+MG Specimen Type: PLASMA No comment entered. Ordering Provider: GABINO CAMEORN Report Released Date/Time: Jul 03, 2024 06:31 PM Reporting Lab: [facility] [address] Performing Lab: [facility] [address] CREATININE 0.7 mg/dL 0.7-1.2 UREA NITROGEN 16 [...] Reporting Lab: [facility] [address] Performing Lab: [facility] [address] PHOSPHORUS 2.8 mg/dL 2.3-4.3 Jul 04, 2024 07:[address] [facility] CBC Specimen Type: BLOOD No comment entered. Ordering Provider: GABINO CAMERON Report Released Date/Time: Jul 03, 2024 06:31 PM Reporting Lab: [facility] [address] Performing Lab: [facility] [address] WBC 20.6 H 4.0-11.0 RBC 4.63 4.60-6.20 [...] Reporting Lab: [facility] [address] Performing Lab: [facility] [address] WBC 20.6 H 4.0-11.0 RBC 4.63 4.60-6.20 [...] Reporting Lab: [facility] [address] Performing Lab: [facility] [address] BNP 292 pg/mL H <99 Jul 03, 2024 10:[address] [facility] FINGERSTICK GLUCOSE Specimen Type: BLOOD Comment: Save Result Nurse Notified Ordering Provider: KATELYNN PERSON Report Released Date/Time: Jul 03, 2024 10:50 PM Reporting Lab: [facility] [address] Performing Lab: [facility] [address] FINGERSTICK GLUCOSE 126 mg/dL H 70-100 Jul 03, 2024 05:[address] [facility] FINGERSTICK GLUCOSE Specimen Type: BLOOD Comment: Save Result Nurse Notified Ordering Provider: KATELYNN PERSON Report Released Date/Time: Jul 03, 2024 05:46 PM Reporting Lab: [facility] [address] Performing Lab: [facility] [address] FINGERSTICK GLUCOSE 141 mg/dL H 70-100 Jul 03, 2024 02:[address] [facility] POC ABG/ELECTROLYTES Specimen Type: ARTERIAL BLOOD Comment: FIO2 = 97% Patient Temp: 36.0 C Sample Type = ARTERIAL Ordering Provider: MAZIN ARREDONDO Report Released Date/Time: Jul 03, 2024 01:48 PM Reporting Lab: [facility] [address] Performing Lab: [facility] [address] POC PH 7.387 7.35-7.45 POC PCO2 34.4 [...] Sample Type = ARTERIAL Ordering Provider: MAZIN ARREDODNO Report Released Date/Time: Jul 03, 2024 01:48 PM Reporting Lab: [facility] [address] Performing Lab: [facility] [address] POC PH 7.280 L 7.35-7.45 POC PCO2 [...] Reporting Lab: [facility] [address] Performing Lab: [facility] [address] URINE COLOR YELLOW SPECIFIC GRAVITY 1.031 1.003-1.03 [...] Reporting Lab: [facility] [address] Performing Lab: [facility] [address] WBC 15.8 H 4.0-11.0 RBC 5.11 4.60-6.20 [...] YRS OR MORE [facility] Tobacco Use History [...] 06:15 PM CHEST 1 VIEW: MEGFLACA YAMIL [id number] -1950 M Exm Date: JUL 18, 2024@18:15 Req Phys: LEISA GOLDEN Pat Loc: 07-18-2024@19:00 Img Loc: MAIN X-RAY Service: [facility] [place] [address] (Case [id number] COMPLETE) CHEST 1 VIEW (RAD Detailed) CPT:46184 Proc Modifiers : PORTABLE EXAM Reason for Study: SOB Clinical History: [place] IS NOT under investigation for COVID-19 or is COVID-19 negative 73 yo with SOB Responsible provider name and phone number to notify for critical findings if other than user placing the order and pager listed below: User placing orders pager: [phone] LAST CREATININE 1.2 (07/17/24) Report Status: Verified Date Reported: JUL 18, 2024 Date Verified: JUL 18, 2024 Flexographic Press Set Up Operator E-Sig:/ES/CARLOS A CUNNINGHAM DO Report: EXAMINATION: CHEST 1 VIEW Reason for Study: SOB [place] IS NOT under investigation for COVID-19 or is COVID-19 negative 73 yo with SOB Responsible provider name and phone number to notify for critical findings if other than user placing the order and pager listed below: User placing orders pager: [phone] LAST CREATININE 1.2 (07/17/24) SOB TECHNIQUE: Single [...] Interpreting Staff: CARLOS A CUNNINGHAM DO, RADIOLOGIST (Flexographic Press Set Up Operator) /KMB CARLOS A CUNNINGHAM [facility] Jul 16, 2024 07:49 AM [facility] ABDOMEN/PELVIS: FLACA WEAVER [id number] -1950 M Exm Date: JUL 16, 2024@07:49 Req Phys: JATINDER CABRERA Loc: 07-17-2024@09:02 Img Loc: OUTSOURCE CT Service: Unknown (Case [id number] COMPLETE) [facility] ABDOMEN/PELVIS (CT Detailed) CPT:97455 Reason for Study: outside study Clinical History: [...] / *ELECTRONICALLY FILED* [facility] Jul 13, 2024 09:[address] ABDOMEN/PELVIS: FLACA WEAVER [id number] -1950 M Exm Date: JUL 13, 2024@09:41 Req Phys: JATINDER CABRERA Loc: 07-17-2024@09:08 Img Loc: OUTSOURCE CT Service: Unknown (Case [id number] COMPLETE) [facility] ABDOMEN/PELVIS (CT Detailed) CPT:71420 Reason for Study: outside study Clinical History: [...] / *ELECTRONICALLY FILED* [facility] Jul 08, 2024 10:09 AM CHEST 2 VIEWS PA AND LAT: FLACA WEAVER [id number] -1950 M Exm Date: JUL 08, 2024@10:09 Req Phys: KATELYNN PERSON [facility] Loc: [facility]/07-08-2024@11:49 Img Loc: MAIN X-RAY Service: [place] [address] (Case 24 COMPLETE) CHEST 2 VIEWS PA AND LAT (RAD Detailed) CPT:57350 Reason for Study: Uptrending WBC, POD 5 [...] 08, 2024 Date Verified: JUL 08, 2024 Flexographic Press Set Up Operator E-Sig: Report: CHEST 2 VIEWS PA [...] cardiopulmonary disease. READING PHYSICIAN: Sarbjit Vaughn M.D. -[phone] 07/08/2024 12:46 EST [facility] [phone] (For Medical Practitioner Use Only) Attention Patients / Veterans: If you have questions or concerns about these test results, please contact your ordering provider or primary care team. Primary Interpreting Staff: RADIOLOGY,OUTSIDE SERVICE, Staff Physician / RADIOLOGY,OUTSIDE SERVICE [facility] Jul 08, 2024 10:[address] (AP) ABDOMEN/PELVIS W CONTRAST: FLACA WEAVER [id number] -1950 M Exm Date: JUL 08, 2024@10:00 Req Phys: KATELYNN PERSON [facility] Loc: [facility]/07-08-2024@12:07 Img Loc: CT IMAGING Service: [place] [address] (Case 22 COMPLETE) CT (AP) ABDOMEN/PELVIS W CONTRAST(CT Detailed) CPT:40615 Contrast Media : Non-ionic Iodinated Reason for [...] PLASMA .CREAT EGFR(CKD-E >90 Ref: >=60 Allergies: ([place] only) TERAZOSIN (Mar 13, 2015) Report Status: Verified Date Reported: JUL 08, 2024 Date Verified: JUL 08, 2024 Flexographic Press Set Up Operator E-Sig: Report: CT (AP) ABDOMEN/PELVIS W CONTRAST HISTORY: POD 5, Uptrending WBC - Concern for Abscess/other infection COMPARISON: June 21, 2024 TECHNIQUE: CT abdomen and pelvis was performed after intravenous contrast. Axial, sagittal and coronal reformatted images. The study was performed at the local [place] facility and images were sent to the [place] [employer] ([facility]) for interpretation. Number of images [...] as noted above READING PHYSICIAN: Celestino Blanc -[phone] 07/08/2024 13:04 EST [facility] [employer] [facility] [employer] [phone] (For Medical Practitioner Use Only) Attention Patients / Veterans: If you have questions or concerns about these test results, please contact your ordering provider or primary care team. Primary Interpreting Staff: RADIOLOGY,OUTSIDE SERVICE, Staff Physician / RADIOLOGY,OUTSIDE SERVICE [facility] Pathology Reports: +/- [...] the Encounter. The data comes from all [facility] facilities. Date/Time Pathology Report Provider Source Jul 16, 2024 02:07 PM LR MICROBIOLOGY RE [place]: Reporting Lab: [facility] [CLIA# [id number]] [place] [address] Accession [UID]: [id number] [[id number]] Received: Jul 16, 2024@14:41 Collection sample: BLOOD Collection date: Jul 16, 2024 14:07 Provider: LEISA GOLDEN Comment on specimen: R AC, RECEIVED 2 BLOOD CULTURE BOTTLES Test(s) ordered: CULTURE & SUSCEPTIBILITY...... completed: Jul 22, 2024 * BACTERIOLOGY FINAL REPORT => Jul 22, 2024 13:39 TECH CODE: [id number] CULTURE RESULTS: NO GROWTH 5 DAYS Bacteriology Remark(s): THIS REPORT IS FINAL =--=--=--=--=--=--=--=--=-- =--=--=--=--=--=--=--=--=-- =--=--=--=--=--=--=--=-- Performing Laboratory: Bacteriology Report Performed By: [facility] [CLIA# [id number]] [place] [address] [facility] Jul 16, 2024 01:54 PM LR MICROBIOLOGY RE PORT: Reporting Lab: [facility] [CLIA# [id number]] [place] [address] Accession [UID]: [id number] [[id number]] Received: Jul 16, 2024@14:41 Collection sample: BLOOD Collection date: Jul 16, 2024 13:54 Provider: LEISA GOLDEN Comment on specimen: [place] AC, RECEIVED 2 BLOOD CULTURE BOTTLES Test(s) ordered: CULTURE & SUSCEPTIBILITY...... completed: Jul 22, 2024 * BACTERIOLOGY FINAL REPORT => Jul 22, 2024 13:39 TECH CODE: [id number] CULTURE RESULTS: NO GROWTH 5 DAYS Bacteriology Remark(s): THIS REPORT IS FINAL =--=--=--=--=--=--=--=--=-- =--=--=--=--=--=--=--=--=-- =--=--=--=--=--=--=--=-- Performing Laboratory: Bacteriology Report Performed By: [facility] [CLIA# [id number]] [facility] [employer] [place] [address] [facility] Jul 03, 2024 05:59 AM LR SURGICAL PATHOL OGY REPORT: LOCAL TITLE: LR SURGICAL PATHOLOGY REPORT STANDARD TITLE: PATHOLOGY REPORT DATE OF NOTE: JUL 06, 2024@10:40:48 ENTRY DATE: JUL 06, 2024@10:40:48 AUTHOR: EDUARDO PALOMARES EXP COSIGNER: URGENCY: STATUS: COMPLETED $APHDR Reporting Lab: [facility] [CLIA# [id number]] [place] [address] - - - - - - - [...] - PATHOLOGY REPORT Accession No. [id number] - - - - - - - [...] - PATHOLOGY REPORT Accession No. [id number] - - - - - - - [...] Second circumferential surgical margin, en face; E-F: Community Nurse diverticula; G: Community Nurse section of mesentery; H: Random plastic products sales representative section of additional adipose tissue [...] One colonic tissue ring, bisected transversely. [facility]: Microscopic examination performed. DIAGNOSIS: 1. Colon, sigmoid, sigmoidectomy-- - Diverticulosis with perforation and focal abscess formation 2. Colon, anastomotic rings, excision-- - Viable colonic mucosa without diagnostic abnormality /es/ EDUARDO PALOMARES MD STAFF PATHOLOGIST Signed Jul 06, 2024@10:40 Performing Laboratory: Surgical Pathology Report Performed By: [facility] [CLIA# [id number]] [place] [address] $FTR - - - - - - [...] - - FLACA WEAVER STANDARD FORM 515 ID:[id number] SEX:M :1950 AGE: 73 LOC:[id number] ADM:NOV 5,2024 DX:DIVERTICULITIS PCP: Jatinder Cabrera /alexi/ EDUARDO PALOMARES MD STAFF PATHOLOGIST Signed: 07/06/2024 10:[address] [facility] Encounter Notes: All associated encounter notes This section contains the clinical notes associated to the Encounter. Date/Time Encounter Note(s) Provider Source Jul 21, 2024 05:05 PM SCANNED REPORT: LOCAL TITLE: TELEMETRY RHYTHM STRIPS STANDARD TITLE: SCANNED REPORT DATE OF NOTE: JUL 21, 2024@17:05 ENTRY DATE: JUL 30, 2024@17:06:11 AUTHOR: TALIB MACKEY EXP COSIGNER: URGENCY: STATUS: COMPLETED [facility]. /alexi/ TALIB MACKEY Automatic Corn Grinder Operator Signed: 07/30/2024 17:[address] [facility]
[2024-08-01 07:53] LABS: Potassium* 4.3 mmol/L (3.6-5.1); Sodium* 128 mmol/L (135-149)
--- OUTSIDE RECORDS SUMMARY | 2024-08-01 07:53 | XMS_ITS | Encounter Summary ---
Author Name [facility] [facility] [place] Address [address] [place] [address] Care Team Providers Care Engineering Systems Analyst Name Role Phone JATINDER CABRERA Primary [...] PART A Sep 29, 2016 PART A [phone] JUDY WEAVER PATIENT Selected Encounter This section includes the information on record at [place] for the Encounter. Date/Time Encounter Type Encounter Description Reason Pro vider Source Jul 16, 2024 10:13 AM Outpatient Encounter COMMUNITY CARE CONSULT IHE [...] URINE WC ONCE [facility] Jun 12, 2024 12:00 AM Laboratory - Chemi stry Order BNP PLASMA SP ONCE [facility] Jun 21, 2024 05:45 PM Laboratory - Blood Bank Order TYPE & SCREEN - LAB BLOOD WC [facility] Jul 03, 2024 12:00 AM Laboratory - Blood Bank Order TYPE & SCREEN - LAB BLOOD WC [facility] Jul 16, 2024 12:00 AM Laboratory - Chemi stry Order CBC BLOOD SP ONCE [facility] Jul 17, 2024 12:00 AM Laboratory - Chemi stry Order BASIC METABOLIC PANEL+MG PLASMA SP ONCE [facility] Lab Results: [...] Comment Jul 21, 2024 10:[address] [facility] BASIC METABOLIC PANEL+MG Specimen Type: PLASMA No comment entered. Ordering Provider: SARAI GOLDEN Report Released Date/Time: Jul 20, 2024 06:50 PM Reporting Lab: [facility] [phone] Performing Lab: [facility] [address] CREATININE 0.8 mg/dL 0.7-1.2 UREA NITROGEN 31 mg/dL H 8-26 GLUCOSE 120 mg/dL H 70-100 SODIUM 125 mmol/L L 136-145 POTASSIUM 4.4 mmol/L 3.5-5.1 CHLORIDE 100 mmol/L 98-107 CO2 17 mmol/L L 22-29 CALCIUM 9.6 mg/dL 8.4-10.2 MAGNESIUM 1.9 mg/dL 1.6-2.6 ANION GAP 8 mmol/L 5-15 .CREAT EGFR(CKD-EPI) >90 >60 Jul 21, 2024 10:[address] [facility] CBC Specimen Type: BLOOD No comment entered. Ordering Provider: SARAI GOLDEN Report Released Date/Time: Jul 20, 2024 06:50 PM Reporting Lab: [facility] [address] Performing Lab: [facility] [address] WBC 16.0 H 4.0-11.0 RBC 5.16 4.60-6.20 HGB 15.8 g/dL 13.5-17.9 HCT 45.5 41.0-54.0 MCV 88.2 fL 80.0-100.0 MCH 30.6 pg 27.0-33.0 MCHC 34.7 g/dL 32.0-37.5 PLT 428 H 150-400 MPV 10.8 fL 9.1-13.0 RDW 13.6 11.5-14.5 Jul 20, 2024 01:[address] [facility] SODIUM,URINE RANDOM Specimen Type: URINE No comment entered. Ordering Provider: SARAI GOLDEN Report Released Date/Time: Jul 20, 2024 08:22 AM Reporting Lab: [facility] [address] Performing Lab: [facility] [address] SODIUM,URINE RANDOM <20 mmol/L Jul 20, 2024 01:[address] [facility] OSMOLALITY,URINE Specimen Type: URINE No comment entered. Ordering Provider: SARAI GOLDEN Report Released Date/Time: Jul 20, 2024 08:22 AM Reporting Lab: [facility] [address] Performing Lab: [facility] [address] OSMOLALITY,URIN E 648 mosm/kg 500-800 Jul 20, 2024 06:[address] [facility] BASIC METABOLIC PANEL+MG Specimen Type: PLASMA No comment entered. Ordering Provider: SARAI GOLDEN Report Released Date/Time: Jul 19, 2024 06:13 PM Reporting Lab: [facility] [address] Performing Lab: [facility] [address] CREATININE 0.8 mg/dL 0.7-1.2 UREA NITROGEN 36 mg/dL H 8-26 GLUCOSE 111 mg/dL H 70-100 SODIUM 121 mmol/L L 136-145 POTASSIUM 4.1 mmol/L 3.5-5.1 CHLORIDE 99 mmol/L 98-107 CO2 14 mmol/L L 22-29 CALCIUM 9.5 mg/dL 8.4-10.2 MAGNESIUM 1.8 mg/dL 1.6-2.6 ANION GAP 8 mmol/L 5-15 .CREAT EGFR(CKD-EPI) >90 >60 Jul 20, 2024 06:[address] [facility] CBC & DIFF Specimen Type: BLOOD Comment: Automated Differential Performed Ordering Provider: SARAI GOLDEN Report Released Date/Time: Jul 19, 2024 06:13 PM Reporting Lab: [facility] [address] Performing Lab: [facility] [address] WBC 16.6 H 4.0-11.0 RBC 4.96 4.60-6.20 [...] 0.0-0.1 Jul 20, 2024 05:[address] [facility] OSMOLALITY,SERUM Specimen Type: SERUM No comment entered. Ordering Provider: SARAI GOLDEN Report Released Date/Time: Jul 20, 2024 09:47 AM Reporting Lab: [facility] [address] Performing Lab: [facility] [address] OSMOLALITY,SERU M 266 mosm/kg L 276-305 Jul 19, 2024 08:[address] [facility] BASIC METABOLIC PANEL+MG Specimen Type: PLASMA No comment entered. Ordering Provider: SARAI GOLDEN Report Released Date/Time: Jul 18, 2024 10:24 PM Reporting Lab: [facility] [address] Performing Lab: [facility] [address] CREATININE 1.0 mg/dL 0.7-1.2 UREA NITROGEN 40 mg/dL H 8-26 GLUCOSE 104 mg/dL H 70-100 SODIUM 129 mmol/L L 136-145 POTASSIUM 3.3 mmol/L L 3.5-5.1 CHLORIDE 104 mmol/L 98-107 CO2 16 mmol/L L 22-29 CALCIUM 8.0 mg/dL L 8.4-10.2 MAGNESIUM 1.7 mg/dL 1.6-2.6 ANION GAP 9 mmol/L 5-15 .CREAT EGFR(CKD-EPI) 80 >60 Jul 19, 2024 08:[address] [facility] CBC Specimen Type: BLOOD No comment entered. Ordering Provider: SARAI GOLDEN Report Released Date/Time: Jul 18, 2024 10:24 PM Reporting Lab: [facility] [address] Performing Lab: [facility] [address] WBC 17.3 H 4.0-11.0 RBC 4.83 4.60-6.20 HGB 14.8 g/dL 13.5-17.9 HCT 42.6 41.0-54.0 MCV 88.2 fL 80.0-100.0 MCH 30.6 pg 27.0-33.0 MCHC 34.7 g/dL 32.0-37.5 PLT 456 H 150-400 MPV 10.8 fL 9.1-13.0 RDW 13.7 11.5-14.5 Jul 17, 2024 06:[address] [facility] PHOSPHORUS Specimen Type: PLASMA No comment entered. Ordering Provider: SARAI GOLDEN Report Released Date/Time: Jul 17, 2024 01:54 PM Reporting Lab: [facility] [address] Performing Lab: [facility] [address] PHOSPHORUS 2.9 mg/dL 2.3-4.3 Jul 17, 2024 06:[address] [facility] BASIC METABOLIC PANEL+MG Specimen Type: PLASMA No comment entered. Ordering Provider: SARAI GOLDEN Report Released Date/Time: Jul 17, 2024 01:54 PM Reporting Lab: [facility] [address] Performing Lab: [facility] [address] CREATININE 1.2 mg/dL 0.7-1.2 UREA NITROGEN 62 mg/dL H 8-26 GLUCOSE 116 mg/dL H 70-100 SODIUM 128 mmol/L L 136-145 POTASSIUM 3.8 mmol/L 3.5-5.1 CHLORIDE 100 mmol/L 98-107 CO2 16 mmol/L L 22-29 CALCIUM 9.3 mg/dL 8.4-10.2 MAGNESIUM 2.1 mg/dL 1.6-2.6 ANION GAP 12 mmol/L 5-15 .CREAT EGFR(CKD-EPI) 64 >60 Jul 17, 2024 07:[address] [facility] CBC & DIFF Specimen Type: BLOOD Comment: Manual Differential Performed Ordering Provider: SARAI GOLDEN Report Released Date/Time: Jul 16, 2024 04:52 PM Reporting Lab: [facility] [address] Performing Lab: [facility] [address] WBC 18.9 H 4.0-11.0 RBC 5.55 4.60-6.20 [...] PRESENT Jul 17, 2024 07:[address] [facility] ALBUMIN Specimen Type: PLASMA No comment entered. Ordering Provider: SARAI GOLDEN Report Released Date/Time: Jul 16, 2024 12:12 PM Reporting Lab: [facility] [address] Performing Lab: [facility] [address] ALBUMIN 4.3 g/dL 3.5-5.0 Jul 17, 2024 07:[address] [facility] COMPREHENSIVE METABOLIC PANEL+MG Specimen Type: PLASMA No comment entered. Ordering Provider: SARAI GOLDEN Report Released Date/Time: Jul 16, 2024 04:52 PM Reporting Lab: [facility] [address] Performing Lab: [facility] [address] CREATININE 1.3 mg/dL H 0.7-1.2 UREA NITROGEN [...] >60 Jul 16, 2024 07:[address] [facility] LACTIC ACID Specimen Type: PLASMA No comment entered. Ordering Provider: SARAI GOLDEN Report Released Date/Time: Jul 16, 2024 12:12 PM Reporting Lab: [facility] [address] Performing Lab: [facility] [address] LACTIC ACID 0.9 mmol/L 0.5-2.2 Jul 16, 2024 02:[address] [facility] MRSA SURVL NARES DNA Specimen Type: NARES No comment entered. Ordering Provider: SARAI GOLDEN Report Released Date/Time: Jul 16, 2024 12:12 PM Reporting Lab: [facility] [address] Performing Lab: [facility] [address] MRSA SURVL NARES DNA NEGATIVE Negative Jul 16, 2024 02:[address] [facility] LACTIC ACID Specimen Type: PLASMA No comment entered. Ordering Provider: SARAI GOLDEN Report Released Date/Time: Jul 16, 2024 12:12 PM Reporting Lab: [facility] [address] Performing Lab: [facility] [address] LACTIC ACID 0.9 mmol/L 0.5-2.2 Jul 16, 2024 02:[address] [facility] COMPREHENSIVE METABOLIC PANEL+MG Specimen Type: PLASMA No comment entered. Ordering Provider: SARAI GOLDEN Report Released Date/Time: Jul 16, 2024 12:12 PM Reporting Lab: [facility] [address] Performing Lab: [facility] [address] CREATININE 2.0 mg/dL H 0.7-1.2 UREA NITROGEN [...] >60 Jul 16, 2024 02:[address] [facility] CBC & DIFF Specimen Type: BLOOD Comment: Manual Differential Performed Ordering Provider: SARAI GOLDEN Report Released Date/Time: Jul 16, 2024 12:12 PM Reporting Lab: [facility] [address] Performing Lab: [facility] [address] WBC 19.7 H 4.0-11.0 RBC 5.39 4.60-6.20 [...] PRESENT Jul 10, 2024 07:[address] [facility] PHOSPHORUS Specimen Type: PLASMA No comment entered. Ordering Provider: JUANCARLOS ECHOLS Report Released Date/Time: Jul 09, 2024 12:23 PM Reporting Lab: [facility] [address] Performing Lab: [facility] [address] PHOSPHORUS 3.0 mg/dL 2.3-4.3 Jul 10, 2024 07:[address] [facility] BASIC METABOLIC PANEL+MG Specimen Type: PLASMA No comment entered. Ordering Provider: JUANCARLOS ECHOLS S Report Released Date/Time: Jul 09, 2024 12:23 PM Reporting Lab: [facility] [address] Performing Lab: [facility] [address] CREATININE 0.7 mg/dL 0.7-1.2 UREA NITROGEN 27 mg/dL H 8-26 GLUCOSE 104 mg/dL H 70-100 SODIUM 133 mmol/L L 136-145 POTASSIUM 4.3 mmol/L 3.5-5.1 CHLORIDE 102 mmol/L 98-107 CO2 19 mmol/L L 22-29 CALCIUM 10.1 mg/dL 8.4-10.2 MAGNESIUM 1.9 mg/dL 1.6-2.6 ANION GAP 12 mmol/L 5-15 .CREAT EGFR(CKD-EPI) >90 >60 Jul 10, 2024 07:[address] [facility] CBC Specimen Type: BLOOD No comment entered. Ordering Provider: JUANCARLOS ECHOLS Report Released Date/Time: Jul 09, 2024 12:23 PM Reporting Lab: [facility] [address] Performing Lab: [facility] [address] WBC 18.8 H 4.0-11.0 RBC 5.08 4.60-6.20 HGB 15.9 g/dL 13.5-17.9 HCT 46.8 41.0-54.0 MCV 92.1 fL 80.0-100.0 MCH 31.3 pg 27.0-33.0 MCHC 34.0 g/dL 32.0-37.5 PLT 479 H 150-400 MPV 10.2 fL 9.1-13.0 RDW 13.7 11.5-14.5 Jul 09, 2024 07:[address] [facility] CBC Specimen Type: BLOOD No comment entered. Ordering Provider: QUYNH WEISS Report Released Date/Time: Jul 08, 2024 06:18 PM Reporting Lab: [facility] [address] Performing Lab: [facility] [address] WBC 15.3 H 4.0-11.0 RBC 4.91 4.60-6.20 HGB 15.1 g/dL 13.5-17.9 HCT 45.7 41.0-54.0 MCV 93.1 fL 80.0-100.0 MCH 30.8 pg 27.0-33.0 MCHC 33.0 g/dL 32.0-37.5 PLT 443 H 150-400 MPV 10.0 fL 9.1-13.0 RDW 13.5 11.5-14.5 Jul 08, 2024 10:[address] [facility] URINALYSIS Specimen Type: URINE No comment entered. Ordering Provider: KATELYNN PERSON Report Released Date/Time: Jul 08, 2024 08:41 AM Reporting Lab: [facility] [address] Performing Lab: [facility] [address] URINE COLOR YELLOW SPECIFIC GRAVITY >1.050 H [...] Jul 08, 2024 09:[address] [facility] CBC Specimen Type: BLOOD Comment: Specimen received in Lab at: [id number] Ordering Provider: JUANCARLOS ECHOLS Report Released Date/Time: Jul 07, 2024 04:49 PM Reporting Lab: [facility] [address] Performing Lab: [facility] [address] WBC 17.5 H 4.0-11.0 RBC 4.88 4.60-6.20 HGB 14.9 g/dL 13.5-17.9 HCT 45.7 41.0-54.0 MCV 93.6 fL 80.0-100.0 MCH 30.5 pg 27.0-33.0 MCHC 32.6 g/dL 32.0-37.5 PLT 472 H 150-400 MPV 10.2 fL 9.1-13.0 RDW 13.7 11.5-14.5 Jul 08, 2024 09:[address] [facility] PHOSPHORUS Specimen Type: PLASMA Comment: Specimen received in Lab at: [id number] Ordering Provider: JUANCARLOS ECHOLS Report Released Date/Time: Jul 07, 2024 04:49 PM Reporting Lab: [facility] [address] Performing Lab: [facility] [address] PHOSPHORUS 2.6 mg/dL 2.3-4.3 Jul 08, 2024 09:[address] [facility] BASIC METABOLIC PANEL+MG Specimen Type: PLASMA Comment: Specimen received in Lab at: 0952 Ordering Provider: JUANCARLOS ECHOLS Report Released Date/Time: Jul 07, 2024 04:49 PM Reporting Lab: [facility] [address] Performing Lab: [facility] [address] CREATININE 0.9 mg/dL 0.7-1.2 UREA NITROGEN 26 mg/dL 8-26 GLUCOSE 128 mg/dL H 70-100 SODIUM 134 mmol/L L 136-145 POTASSIUM 3.4 mmol/L L 3.5-5.1 CHLORIDE 100 mmol/L 98-107 CO2 24 mmol/L 22-29 CALCIUM 9.8 mg/dL 8.4-10.2 MAGNESIUM 1.8 mg/dL 1.6-2.6 ANION GAP 10 mmol/L 5-15 .CREAT EGFR(CKD-EPI) >90 >60 Jul 07, 2024 02:[address] [facility] C DIFF PANEL Specimen Type: FECES No comment entered. Ordering Provider: JEVON ZAZUETA Report Released Date/Time: Jul 07, 2024 12:26 PM Reporting Lab: [facility] [address] Performing Lab: [facility] [address] C DIFF TOX B GENE PCR NEGATIVE Negative Jul 07, 2024 07:[address] [facility] PHOSPHORUS Specimen Type: PLASMA No comment entered. Ordering Provider: JEVON ZAZUETA Report Released Date/Time: Jul 06, 2024 03:44 PM Reporting Lab: [facility] [address] Performing Lab: [facility] [address] PHOSPHORUS 3.1 mg/dL 2.3-4.3 Jul 07, 2024 07:[address] [facility] BASIC METABOLIC PANEL+MG Specimen Type: PLASMA No comment entered. Ordering Provider: JEVON ZAZUETA Report Released Date/Time: Jul 06, 2024 03:44 PM Reporting Lab: [facility] [address] Performing Lab: [facility] [address] CREATININE 0.9 mg/dL 0.7-1.2 UREA NITROGEN 20 mg/dL 8-26 GLUCOSE 157 mg/dL H 70-100 SODIUM 136 mmol/L 136-145 POTASSIUM 3.7 mmol/L 3.5-5.1 CHLORIDE 102 mmol/L 98-107 CO2 21 mmol/L L 22-29 CALCIUM 9.8 mg/dL 8.4-10.2 MAGNESIUM 1.9 mg/dL 1.6-2.6 ANION GAP 13 mmol/L 5-15 .CREAT EGFR(CKD-EPI) >90 >60 Jul 07, 2024 07:[address] [facility] CBC Specimen Type: BLOOD No comment entered. Ordering Provider: JEVON ZAZUETA Report Released Date/Time: Jul 06, 2024 03:44 PM Reporting Lab: [facility] [address] Performing Lab: [facility] [address] WBC 21.2 H 4.0-11.0 RBC 5.09 4.60-6.20 HGB 15.9 g/dL 13.5-17.9 HCT 48.3 41.0-54.0 MCV 94.9 fL 80.0-100.0 MCH 31.2 pg 27.0-33.0 MCHC 32.9 g/dL 32.0-37.5 PLT 500 H 150-400 MPV 10.3 fL 9.1-13.0 RDW 13.6 11.5-14.5 Jul 06, 2024 07:[address] [facility] CBC Specimen Type: BLOOD No comment entered. Ordering Provider: JEVON ZAZUETA Report Released Date/Time: Jul 05, 2024 01:22 PM Reporting Lab: [facility] [address] Performing Lab: [facility] [address] WBC 18.0 H 4.0-11.0 RBC 4.83 4.60-6.20 HGB 14.6 g/dL 13.5-17.9 HCT 45.5 41.0-54.0 MCV 94.2 fL 80.0-100.0 MCH 30.2 pg 27.0-33.0 MCHC 32.1 g/dL 32.0-37.5 PLT 368 150-400 MPV 10.4 fL 9.1-13.0 RDW 13.6 11.5-14.5 Jul 06, 2024 07:[address] [facility] PHOSPHORUS Specimen Type: PLASMA No comment entered. Ordering Provider: JEVON ZAZUETA Report Released Date/Time: Jul 05, 2024 01:22 PM Reporting Lab: [facility] [address] Performing Lab: [facility] [address] PHOSPHORUS 3.6 mg/dL 2.3-4.3 Jul 06, 2024 07:[address] [facility] BASIC METABOLIC PANEL+MG Specimen Type: PLASMA No comment entered. Ordering Provider: JEVON ZAZUETA Report Released Date/Time: Jul 05, 2024 01:22 PM Reporting Lab: [facility] [address] Performing Lab: [facility] [address] CREATININE 0.7 mg/dL 0.7-1.2 UREA NITROGEN 12 mg/dL 8-26 GLUCOSE 108 mg/dL H 70-100 SODIUM 138 mmol/L 136-145 POTASSIUM 3.4 mmol/L L 3.5-5.1 CHLORIDE 104 mmol/L 98-107 CO2 20 mmol/L L 22-29 CALCIUM 9.3 mg/dL 8.4-10.2 MAGNESIUM 1.9 mg/dL 1.6-2.6 ANION GAP 14 mmol/L 5-15 .CREAT EGFR(CKD-EPI) >90 >60 Jul 05, 2024 07:[address] [facility] MAGNESIUM Specimen Type: PLASMA No comment entered. Ordering Provider: JUANCARLOS ECHOLS S Report Released Date/Time: Jul 04, 2024 09:39 AM Reporting Lab: [facility] [address] Performing Lab: [facility] [address] MAGNESIUM 2.0 mg/dL 1.6-2.6 Jul 05, 2024 07:[address] [facility] PHOSPHORUS Specimen Type: PLASMA No comment entered. Ordering Provider: JUANCARLOS ECHOLS S Report Released Date/Time: Jul 04, 2024 09:39 AM Reporting Lab: [facility] [address] Performing Lab: [facility] [address] PHOSPHORUS 2.0 mg/dL L 2.3-4.3 Jul 05, 2024 07:[address] [facility] BASIC METABOLIC PANEL+MG Specimen Type: PLASMA No comment entered. Ordering Provider: JUANCARLOS ECHOLS S Report Released Date/Time: Jul 04, 2024 09:39 AM Reporting Lab: [facility] [address] Performing Lab: [facility] [address] CREATININE 0.7 mg/dL 0.7-1.2 UREA NITROGEN 12 mg/dL 8-26 GLUCOSE 84 mg/dL 70-100 SODIUM 135 mmol/L L 136-145 POTASSIUM 3.8 mmol/L 3.5-5.1 CHLORIDE 104 mmol/L 98-107 CO2 24 mmol/L 22-29 CALCIUM 9.3 mg/dL 8.4-10.2 MAGNESIUM 2.0 mg/dL 1.6-2.6 ANION GAP 7 mmol/L 5-15 .CREAT EGFR(CKD-EPI) >90 >60 Jul 05, 2024 07:[address] [facility] CBC Specimen Type: BLOOD No comment entered. Ordering Provider: JUANCARLOS ECHOLS S Report Released Date/Time: Jul 04, 2024 09:39 AM Reporting Lab: [facility] [address] Performing Lab: [facility] [address] WBC 18.3 H 4.0-11.0 RBC 4.49 L 4.60-6.20 HGB 14.1 g/dL 13.5-17.9 HCT 43.4 41.0-54.0 MCV 96.7 fL 80.0-100.0 MCH 31.4 pg 27.0-33.0 MCHC 32.5 g/dL 32.0-37.5 PLT 317 150-400 MPV 10.0 fL 9.1-13.0 RDW 13.9 11.5-14.5 Jul 04, 2024 07:[address] [facility] BASIC METABOLIC PANEL+MG Specimen Type: PLASMA No comment entered. Ordering Provider: GABINO CAMERON Report Released Date/Time: Jul 03, 2024 06:31 PM Reporting Lab: [facility] [address] Performing Lab: [facility] [address] CREATININE 0.7 mg/dL 0.7-1.2 UREA NITROGEN 16 mg/dL 8-26 GLUCOSE 129 mg/dL H 70-100 SODIUM 137 mmol/L 136-145 POTASSIUM 3.7 mmol/L 3.5-5.1 CHLORIDE 107 mmol/L 98-107 CO2 22 mmol/L 22-29 CALCIUM 9.0 mg/dL 8.4-10.2 MAGNESIUM 1.9 mg/dL 1.6-2.6 ANION GAP 8 mmol/L 5-15 .CREAT EGFR(CKD-EPI) >90 >60 Jul 04, 2024 07:[address] [facility] PHOSPHORUS Specimen Type: PLASMA No comment entered. Ordering Provider: GABINO CAMERON Report Released Date/Time: Jul 03, 2024 06:31 PM Reporting Lab: [facility] [address] Performing Lab: [facility] [address] PHOSPHORUS 2.8 mg/dL 2.3-4.3 Jul 04, 2024 07:[address] [facility] CBC Specimen Type: BLOOD No comment entered. Ordering Provider: GABINO CAMERON Report Released Date/Time: Jul 03, 2024 06:31 PM Reporting Lab: [facility] [address] Performing Lab: [facility] [address] WBC 20.6 H 4.0-11.0 RBC 4.63 4.60-6.20 HGB 14.2 g/dL 13.5-17.9 HCT 43.4 41.0-54.0 MCV 93.7 fL 80.0-100.0 MCH 30.7 pg 27.0-33.0 MCHC 32.7 g/dL 32.0-37.5 PLT 329 150-400 MPV 10.4 fL 9.1-13.0 RDW 13.8 11.5-14.5 Jul 04, 2024 07:[address] [facility] CBC & DIFF Specimen Type: BLOOD Comment: Manual Differential Performed Ordering Provider: GABINO CAMERON Report Released Date/Time: Jul 03, 2024 06:31 PM Reporting Lab: [facility] [address] Performing Lab: [facility] [address] WBC 20.6 H 4.0-11.0 RBC 4.63 4.60-6.20 [...] Jul 04, 2024 07:[address] [facility] BNP Specimen Type: PLASMA No comment entered. Ordering Provider: GABINO CAMERON Report Released Date/Time: Jul 03, 2024 06:31 PM Reporting Lab: [facility] [address] Performing Lab: [facility] [address] BNP 292 pg/mL H <99 Jul 03, 2024 10:[address] [facility] FINGERSTICK GLUCOSE Specimen Type: BLOOD Comment: Save Result Nurse Notified Ordering Provider: KATELYNN PERSON Report Released Date/Time: Jul 03, 2024 10:50 PM Reporting Lab: [facility] [address] Performing Lab: [facility] [address] FINGERSTICK GLUCOSE 126 mg/dL H 70-100 Jul 03, 2024 05:[address] [facility] FINGERSTICK GLUCOSE Specimen Type: BLOOD Comment: Save Result Nurse Notified Ordering Provider: KATELYNN PERSON Report Released Date/Time: Jul 03, 2024 05:46 PM Reporting Lab: [facility] [address] Performing Lab: [facility] [address] FINGERSTICK GLUCOSE 141 mg/dL H 70-100 Jul 03, 2024 02:[address] [facility] POC ABG/ELECTROLYTES Specimen Type: ARTERIAL BLOOD Comment: FIO2 = 97% Patient Temp: 36.0 C Sample Type = ARTERIAL Ordering Provider: MAZIN ARREODNDO Report Released Date/Time: Jul 03, 2024 01:48 PM Reporting Lab: [facility] [address] Performing Lab: [facility] [address] POC PH 7.387 7.35-7.45 POC PCO2 34.4 [...] Jul 03, 2024 01:[address] [facility] POC ABG/ELECTROLYTES Specimen Type: ARTERIAL BLOOD Comment: FIO2 = 53% Patient Temp: 36.2 C Sample Type = ARTERIAL Ordering Provider: MAZIN ARREDONDO Report Released Date/Time: Jul 03, 2024 01:48 PM Reporting Lab: [facility] [address] Performing Lab: [facility] [address] POC PH 7.280 L 7.35-7.45 POC PCO2 [...] Jul 03, 2024 06:[address] [facility] URINALYSIS Specimen Type: URINE No comment entered. Ordering Provider: PALMIRA POWELL Report Released Date/Time: Jun 12, 2024 04:01 PM Reporting Lab: [facility] [address] Performing Lab: [facility] [address] URINE COLOR YELLOW SPECIFIC GRAVITY 1.031 1.003-1.03 [...] Jul 03, 2024 06:[address] [facility] CBC Specimen Type: BLOOD No comment entered. Ordering Provider: PALMIRA POWELL Report Released Date/Time: Jun 12, 2024 03:59 PM Reporting Lab: [facility] [phone] Performing Lab: [facility] [address] WBC 15.8 H 4.0-11.0 RBC 5.11 4.60-6.20 HGB 16.1 g/dL 13.5-17.9 HCT 49.1 41.0-54.0 MCV 96.1 fL 80.0-100.0 MCH 31.5 pg 27.0-33.0 MCHC 32.8 g/dL 32.0-37.5 PLT 357 150-400 MPV 9.8 fL 9.1-13.0 RDW 13.7 11.5-14.5 Jun 24, 2024 09:[address] [facility] BASIC METABOLIC PANEL+MG Specimen Type: PLASMA Comment: Specimen received in Lab at: [id number] Ordering Provider: JEVON ZAZUETA Report Released Date/Time: Jun 23, 2024 06:07 PM Reporting Lab: [facility] [phone] Performing Lab: [facility] [phone] CREATININE 0.8 mg/dL 0.7-1.2 UREA NITROGEN 13 mg/dL 8-26 GLUCOSE 135 mg/dL H 70-100 SODIUM 135 mmol/L L 136-145 POTASSIUM 3.6 mmol/L 3.5-5.1 CHLORIDE 103 mmol/L 98-107 CO2 24 mmol/L 22-29 CALCIUM 9.2 mg/dL 8.4-10.2 MAGNESIUM 1.9 mg/dL 1.6-2.6 ANION GAP 8 mmol/L 5-15 .CREAT EGFR(CKD-EPI) >90 >60 Jun 24, 2024 09:[address] [facility] CBC Specimen Type: BLOOD Comment: Specimen received in Lab at: [id number] Ordering Provider: JEVON ZAZUETA Report Released Date/Time: Jun 23, 2024 06:07 PM Reporting Lab: [facility] [phone] Performing Lab: [facility] [address] WBC 15.5 H 4.0-11.0 RBC 4.93 4.60-6.20 HGB 15.2 g/dL 13.5-17.9 HCT 46.5 41.0-54.0 MCV 94.3 fL 80.0-100.0 MCH 30.8 pg 27.0-33.0 MCHC 32.7 g/dL 32.0-37.5 PLT 223 150-400 MPV 11.4 fL 9.1-13.0 RDW 13.9 11.5-14.5 Jun 23, 2024 07:[address] [facility] COMPREHENSIVE METABOLIC PANEL+MG Specimen Type: PLASMA No comment entered. Ordering Provider: JEVON ZAZUETA Report Released Date/Time: Jun 22, 2024 05:51 PM Reporting Lab: [facility] [phone] Performing Lab: [facility] [phone] CREATININE 0.7 mg/dL 0.7-1.2 UREA NITROGEN 16 [...] Jun 23, 2024 07:[address] [facility] CBC & DIFF Specimen Type: BLOOD Comment: Automated Differential Performed Ordering Provider: JEVON ZAZUETA Report Released Date/Time: Jun 22, 2024 05:51 PM Reporting Lab: [facility] [phone] Performing Lab: [facility] [address] WBC 14.9 H 4.0-11.0 RBC 5.09 4.60-6.20 [...] Jun 22, 2024 06:[address] [facility] CBC Specimen Type: BLOOD No comment entered. Ordering Provider: JEVON ZAZUETA Report Released Date/Time: Jun 22, 2024 05:51 PM Reporting Lab: [facility] [address] Performing Lab: [facility] [address] WBC 16.9 H 4.0-11.0 RBC 5.28 4.60-6.20 HGB 16.9 g/dL 13.5-17.9 HCT 50.4 41.0-54.0 MCV 95.5 fL 80.0-100.0 MCH 32.0 pg 27.0-33.0 MCHC 33.5 g/dL 32.0-37.5 PLT 223 150-400 MPV 10.9 fL 9.1-13.0 RDW 14.0 11.5-14.5 Jun 22, 2024 06:[address] [facility] COMPREHENSIVE METABOLIC PANEL+MG Specimen Type: PLASMA No comment entered. Ordering Provider: JEVON ZAZUETA Report Released Date/Time: Jun 22, 2024 05:51 PM Reporting Lab: [facility] [address] Performing Lab: [facility] [address] CREATININE 0.7 mg/dL 0.7-1.2 UREA NITROGEN 17 [...] Jun 21, 2024 06:[address] [facility] URINALYSIS Specimen Type: URINE No comment entered. Ordering Provider: DELIA MARTINEZ Report Released Date/Time: Jun 21, 2024 05:45 PM Reporting Lab: [facility] [address] Performing Lab: [facility] [address] URINE COLOR YELLOW SPECIFIC GRAVITY 1.041 H [...] Jun 21, 2024 05:[address] [facility] POC CREATININE Specimen Type: BLOOD No comment entered. Ordering Provider: DELIA MARTINEZ Report Released Date/Time: Jun 21, 2024 06:07 PM Reporting Lab: [facility] [address] Performing Lab: [facility] [address] POC CREATININE 1.1 mg/dL 0.6-1.3 Jun 21, 2024 05:[address] [facility] POC ABG/LACTATE Specimen Type: VENOUS BLOOD No comment entered. Ordering Provider: DELIA MARTINEZ Report Released Date/Time: Jun 21, 2024 06:07 PM Reporting Lab: [facility] [address] Performing Lab: [facility] [address] POC PH 7.470 H 7.31-7.41 POC PCO2 31.2 mm[Hg] L 41.00-51 .0 0 POC PO2 46 mm[Hg] H 35.0-40.0 POC TCO2 24 mmol/L 24.0-29.0 POC HCO3 22.7 mmol/L L 23.0-28.0 POC BE ECT -1 mmol/L POC SO2 85 H 70-75 POC LACTATE 1.85 mmol/L 0.90-1.70 Jun 21, 2024 05:[address] [facility] PROTHROMBIN TIME/INR Specimen Type: PLASMA No comment entered. Ordering Provider: DELIA MARTINEZ Report Released Date/Time: Jun 21, 2024 05:30 PM Reporting Lab: [facility] [address] Performing Lab: [facility] [address] .INR 1.2 H 0.8-1.1 .PT 13.9 s H 9.4-12.5 Jun 21, 2024 05:[address] [facility] EXTRA GOLD GEL TUBE Specimen Type: SERUM No comment entered. Ordering Provider: DELIA MARTINEZ Report Released Date/Time: Jun 21, 2024 05:41 PM Reporting Lab: [facility] [address] Performing Lab: [facility] [address] EXTRA GOLD GEL TUBE RECEIVED Jun 21, 2024 05:[address] [facility] LIPASE Specimen Type: PLASMA No comment entered. Ordering Provider: DELIA MARTINEZ Report Released Date/Time: Jun 21, 2024 05:30 PM Reporting Lab: [facility] [address] Performing Lab: [facility] [address] LIPASE 32 U/L <60 Jun 21, 2024 05:[address] [facility] COMPREHENSIVE METABOLIC PANEL+MG Specimen Type: PLASMA No comment entered. Ordering Provider: DELIA MARTINEZ Report Released Date/Time: Jun 21, 2024 05:30 PM Reporting Lab: [facility] [address] Performing Lab: [facility] [address] CREATININE 0.9 mg/dL 0.7-1.2 UREA NITROGEN 29 [...] Jun 21, 2024 05:[address] [facility] CBC & DIFF Specimen Type: BLOOD Comment: Manual Differential Performed Ordering Provider: DELIA MARTINEZ Report Released Date/Time: Jun 21, 2024 05:30 PM Reporting Lab: [facility] [address] Performing Lab: [facility] [address] WBC 21.3 H 4.0-11.0 RBC 5.48 4.60-6.20 [...] Index Source Jul 16, 2024 12:17 PM Yecenia LOZANO [facility] Social History: Smoking Status (Most current) and Tobacco Use (All prior to encounter date) This section includes the most current, and the historical, smoking and tobacco- related health factors from the [place] facility where the Encounter took place. Current Smoking Status This section includes the most current smoking, or tobacco-related health factor, from the [facility] where the Encounter took place. Date/Time Current Smoking Status Comment Facil ity May 15, 2024 08:30 AM VA-TOBACCO QUIT [address] [facility] Tobacco Use History [...] YRS OR MORE [facility] May 06, 2023 11:30 AM VA-TOBACCO FORMER USER [facility] May 06, 2023 11:30 AM [...] 06:15 PM CHEST 1 VIEW: FLACA WEAVER [id number] -1950 M Exm Date: JUL 18, 2024@18:15 Req Phys: LEISA GOLDEN Loc: 07-18-2024@19:00 Img Loc: MAIN X-RAY Service: [place] [address] (Case [id number] COMPLETE) CHEST 1 VIEW (RAD Detailed) CPT:89905 Proc Modifiers : PORTABLE EXAM Reason for Study: SOB Clinical History: IS NOT under investigation for COVID-19 or is COVID-19 negative 73 yo with SOB Responsible provider name and phone number to notify for critical findings if other than user placing the order and pager listed below: User placing orders pager: [phone] LAST CREATININE 1.2 (07/17/24) Report Status: Verified Date Reported: JUL 18, 2024 Date Verified: JUL 18, 2024 Salvage Repairer E-Sig:/ES/CARLOS A CUNNINGHAM DO Report: EXAMINATION: CHEST 1 VIEW Reason for Study: SOB IS NOT under investigation for COVID-19 or is COVID-19 negative 73 yo with SOB Responsible provider name and phone number to notify for critical findings if other than user placing the order and pager listed below: User placing orders pager: [phone] LAST CREATININE 1.2 (07/17/24) SOB TECHNIQUE: Single [...] Interpreting Staff: CARLOS A CUNNINGHAM DO, RADIOLOGIST (Salvage Repairer) /KMB CARLOS A CUNNINGHAM [facility] Jul 16, 2024 07:49 [address] CT ABDOMEN/PELVIS: FLACA WEAVER [id number] -1950 M Exm Date: JUL 16, 2024@07:49 Req Phys: JATINDER CABRERA Loc: 07-17-2024@09:02 Img Loc: OUTSOURCE CT Service: Unknown (Case [id number] COMPLETE) NON DC CT ABDOMEN/PELVIS (CT Detailed) CPT:13203 Reason for Study: outside study Clinical History: [...] / *ELECTRONICALLY FILED* [facility] Jul 13, 2024 09:[address] ABDOMEN/PELVIS: FLACA WEAVER [id number] -1950 M Exm Date: JUL 13, 2024@09:41 Req Phys: JATINDER CABRERA Loc: 07-17-2024@09:08 Img Loc: OUTSOURCE CT Service: Unknown (Case [id number] COMPLETE) NON DC CT ABDOMEN/PELVIS (CT Detailed) CPT:30059 Reason for Study: outside study Clinical History: [...] / *ELECTRONICALLY FILED* [facility] Jul 08, 2024 10:09 AM CHEST 2 VIEWS PA AND LAT: FLACA WEAVER [id number] -1950 M Exm Date: JUL 08, 2024@10:09 Req Phys: KATELYNN PERSON Pat Loc: 2KG/07-08-2024@11:49 Img Loc: MAIN X-RAY Service: [place] [address] (Case 24 COMPLETE) CHEST 2 VIEWS PA AND LAT (RAD Detailed) CPT:88997 Reason for Study: Uptrending WBC, POD 5 Clinical History: [place] IS NOT under investigation for COVID-19 or is COVID-19 negative POD 5, work up for uptrending wbc Responsible provider name and phone number to notify for critical findings if other than user placing the order and pager listed below: User placing orders pager: Katelynn Person LAST CREATININE 0.9 (07/07/24) Report Status: Verified Date Reported: JUL 08, 2024 Date Verified: JUL 08, 2024 Salvage Repairer E-Sig: Report: CHEST 2 VIEWS PA AND [...] cardiopulmonary disease. READING PHYSICIAN: Sarbjit Vaughn M.D. -[phone] 07/08/2024 12:46 EST [facility] National Teleradiology Program [phone] (For Medical Practitioner Use Only) Attention Patients / Veterans: If you have questions or concerns about these test results, please contact your ordering provider or primary care team. Primary Interpreting Staff: RADIOLOGY,OUTSIDE SERVICE, Staff Physician / RADIOLOGY,OUTSIDE SERVICE [facility] Jul 08, 2024 10:[address] (AP) ABDOMEN/PELVIS W CONTRAST: FLACA WEAVER [id number] -1950 M Exm Date: JUL 08, 2024@10:00 Req Phys: KATELYNN PERSON Loc: 2KG/07-08-2024@12:07 Img Loc: CT IMAGING Service: [place] [address] (Case 22 COMPLETE) CT (AP) ABDOMEN/PELVIS W CONTRAST(CT Detailed) CPT:52719 Contrast Media : Non-ionic Iodinated Reason for [...] PLASMA .CREAT EGFR(CKD-E >90 Ref: >=60 Allergies: ([place] only) TERAZOSIN (Mar 13, 2015) Report Status: Verified Date Reported: JUL 08, 2024 Date Verified: JUL 08, 2024 Salvage Repairer E-Sig: Report: CT (AP) ABDOMEN/PELVIS W CONTRAST HISTORY: POD 5, Uptrending WBC - Concern for Abscess/other infection COMPARISON: June 21, 2024 TECHNIQUE: CT abdomen and pelvis was performed after intravenous contrast. Axial, sagittal and coronal reformatted images. The study was performed at the local [place] facility and images were sent to the [place] National Teleradiology Program (NTP) for interpretation. Number [...] as noted above READING PHYSICIAN: Celestino Blanc -[phone] 07/08/2024 13:04 EST [facility] National Sharetivityradiology Program [phone] (For Medical Practitioner Use Only) Attention Patients / Veterans: If you have questions or concerns about these test results, please contact your ordering provider or primary care team. Primary Interpreting Staff: RADIOLOGY,OUTSIDE SERVICE, Staff Physician / RADIOLOGY,OUTSIDE SERVICE [facility] Jun 22, 2024 11:49 AM ABSCESS DRAIN PLACEMENT PERITONEAL (P): FLACA WEAVER [id number] -1950 M Exm Date: JUN 22, 2024@11:49 Req Phys: ANGELA HOLDEN [facility] Loc: [facility]/06-22-2024@17:14 Img Loc: INTERVENTIONAL RADIOLOGY Service: [place] [address] (Case [id number] COMPLETE) IR PERITONEAL/RETROPERITONEAL PER(ANI Detailed) CPT:05738 Reason for Study: diverticulitis with abscess (Case 3570 COMPLETE) IR MOD SEDATION 10-22 MIN (ANI Detailed) CPT:82879 Clinical History: [place] IS NOT under investigation for COVID-19 or is COVID-19 negative 73 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 please place abscess drain. Contact number for responsible provider who can be reached for any questions or notifications of critical findings: [phone] n/a LAST CREATININE 0.9 (06/21/24) Report Status: Verified Date Reported: JUN 22, 2024 Date Verified: JUN 22, 2024 Salvage Repairer E-Sig:/ES/LISA PENDLETON MD Report: PROCEDURES: Placement of [...] was performed per [facility] policy. The patient was placed in the supine position on the CT table. Preprocedural scan performed. The suprapubic region/lower abdominal wall was sterilely prepped and draped in the usual fashion.1% lidocaine without epinephrine was used for local anesthesia. Using real-time CT fluoroscopy, a 5 Citizen Of [place] Yueh centesis catheter was advanced into the collection in the left pelvis. A wire was coiled in the collection. The tract into the collection was dilated to accommodate the 12 Citizen [place] locking pigtail drainage catheter. There was return [...] Primary Interpreting Staff: LISA PENDLETON MD, RADIOLOGIST (Salvage Repairer) /JRT LISA PENDLETON [facility] Jun 22, 2024 11:[address] NEEDLE PLACEMENT (P): FLACA WEAVER [id number] -1950 M Exm Date: JUN 22, 2024@11:48 Req Phys: ANGELA HOLDEN [facility] Loc: [facility]/06-22-2024@17:14 Img Loc: CT IMAGING Service: [place] [address] (Case [id number] COMPLETE) CT SCAN FOR NEEDLE PLACEMENT (CT Detailed) CPT:10240 Reason for Study: l pelvic abscess drain Clinical History: Report Status: Verified Date Reported: JUN 22, 2024 Date Verified: JUN 22, 2024 Salvage Repairer E-Sig:/ES/LISA PENDLETON MD Report: PROCEDURES: Placement of [...] was performed per [facility] policy. The patient was placed in the supine position on the CT table. Preprocedural scan performed. The suprapubic region/lower abdominal wall was sterilely prepped and draped in the usual fashion.1% lidocaine without epinephrine was used for local anesthesia. Using real-time CT fluoroscopy, a 5 Citizen Of [place] Polisofiaesis catheter was advanced into the collection in the left pelvis. A wire was coiled in the collection. The tract into the collection was dilated to accommodate the 12 Citizen [place] locking pigtail drainage catheter. There was return [...] Primary Interpreting Staff: LISA PENDLETON MD, RADIOLOGIST (Salvage Repairer) /JRT LISA PENDLETON [facility] Jun 21, 2024 06:[address] (AP) ABDOMEN/PELVIS (P): FLACA WEAVER [id number] -1950 M Ex Date: JUN 21, 2024@18:09 Req Phys: DELIA MARTINEZ Loc: [facility] EMERGENCY DEPT WALK-IN (Re Img Loc: CT IMAGING Service: [place] [address] (Case [id number] COMPLETE) CT (AP) ABDOMEN/PELVIS W CONTRAST(CT Detailed) CPT:61273 Contrast Media : Non-ionic Iodinated Reason for [...] PLASMA .CREAT EGFR(CKD-E >90 Ref: >=60 Allergies: ([facility]) TERAZOSIN (Mar 13, 2015) Defer [...] 21, 2024 Date Verified: JUN 21, 2024 Salvage Repairer E-Sig:/ALEXI/CARLOS A CUNNINGHAM DO Report: EXAMINATION: CT [...] Interpreting Staff: CARLOS A CUNNINGHAM DO, RADIOLOGIST (Salvage Repairer) /CARLOS A ROWELL [facility] Pathology Reports: +/- [...] Reporting Lab: [facility] [CLIA# [id number]] [place] [address] Accession [UID]: [id number] [[id number]] Received: Jul 16, 2024@14:41 Collection sample: BLOOD Collection date: Jul 16, 2024 14:07 Provider: LEISA GOLDEN Comment on specimen: R AC, RECEIVED 2 BLOOD CULTURE BOTTLES Test(s) ordered: CULTURE & SUSCEPTIBILITY...... completed: Jul 22, 2024 * BACTERIOLOGY FINAL REPORT => Jul 22, 2024 13:39 TECH CODE: [id number] CULTURE RESULTS: NO GROWTH 5 DAYS Bacteriology Remark(s): THIS REPORT IS FINAL =--=--=--=--=--=--=--=--=--= --=--=--=--=--=--=--=--=--=- -=--=--=--=--=--=--=-- Performing Laboratory: Bacteriology Report Performed By: [facility] [CLIA# [id number]] [place] [address] [facility] Jul 16, 2024 01:54 PM LR MICROBIOLOGY RE PORT: Reporting Lab: [facility] [CLIA# [id number]] [place] [address] Accession [UID]: [id number] [[id number]] Received: Jul 16, 2024@14:41 Collection sample: BLOOD Collection date: Jul 16, 2024 13:54 Provider: LEISA GOLDEN Comment on specimen: L AC, RECEIVED 2 BLOOD CULTURE BOTTLES Test(s) ordered: CULTURE & SUSCEPTIBILITY...... completed: Jul 22, 2024 * BACTERIOLOGY FINAL REPORT => Jul 22, 2024 13:39 TECH CODE: [id number] CULTURE RESULTS: NO GROWTH 5 DAYS Bacteriology Remark(s): THIS REPORT IS FINAL =--=--=--=--=--=--=--=--=--= --=--=--=--=--=--=--=--=--=- -=--=--=--=--=--=--=-- Performing Laboratory: Bacteriology Report Performed By: [facility] [CLIA# [id number]] [place] [address] [facility] Jul 03, 2024 05:59 AM LR SURGICAL PATHOL OGY REPORT: LOCAL TITLE: LR SURGICAL PATHOLOGY REPORT STANDARD TITLE: PATHOLOGY REPORT DATE OF NOTE: JUL 06, 2024@10:40:48 ENTRY DATE: JUL 06, 2024@10:40:48 AUTHOR: EDUARDO PALOMARES EXP COSIGNER: URGENCY: STATUS: COMPLETED $APHDR Reporting Lab: [facility] [CLIA# [id number]] [place] [address] - - - - - - - [...] - PATHOLOGY REPORT Accession No. [id number] - - - - - - - [...] - PATHOLOGY REPORT Accession No. [id number] - - - - - - - [...] Second circumferential surgical margin, en face; E-F: Edge Worker diverticula; G: Edge Worker section of mesentery; H: Random commercial pest control representative section of additional adipose tissue fragment. [...] One colonic tissue ring, bisected transversely. [facility]: Microscopic examination performed. DIAGNOSIS: 1. Colon, sigmoid, sigmoidectomy-- - Diverticulosis with perforation and focal abscess formation 2. Colon, anastomotic rings, excision-- - Viable colonic mucosa without diagnostic abnormality /es/ EDUARDO PALOMARES MD STAFF PATHOLOGIST Signed Jul 06, 2024@10:40 Performing Laboratory: Surgical Pathology Report Performed By: [facility] [CLIA# [id number]] [place] [address] $FTR - - - - - - - - - - - - - - - - - - - - - - - - - - - - - - - - - - - - - - - - (End of report) EDUARDO PALOMARES MD [facility] Date Jul 06, 2024 - - - - - - - - - - - - - - - - - - - - - - - - - - - - - - - - - - - - - - - - FLACA WEAVER STANDARD FORM 515 ID:[id number] SEX:M :1950 AGE: 73 LOC:60355 ADM:Jun DX:DIVERTICULITIS PCP: Jatinder Cabrera /alexi/ EDUARDO PALOMARES MD STAFF PATHOLOGIST Signed: 07/06/2024 10:[address] [facility] Jun 22, 2024 01:15 PM LR MICROBIOLOGY RE PORT: Reporting Lab: [facility] [CLIA# [id number]] [place] [address] Accession [UID]: [id number] [[id number]] Received: Jun 22, 2024@13:38 Collection sample: FLUID Collection date: Jun 22, 2024 13:15 Provider: ANGELA HOLDEN Comment on specimen: LLQ ABSCESS, RECEIVED IN ANAEROBIC TRANSPORT VIAL Test(s) ordered: GRAM STAIN.................... completed: Jun 22, 2024 15:03 CULTURE & SUSCEPTIBILITY...... completed: Jun 25, 2024 * BACTERIOLOGY FINAL REPORT => Jun 25, 2024 10:56 TECH CODE: [id number] GRAM STAIN: DIRECT SMEAR of specimen before [...] Performed By: [facility] [CLIA# [id number]] [place] [id number] [facility] Jun 22, 2024 01:15 PM LR MICROBIOLOGY RE PORT: Reporting Lab: [facility] [CLIA# [id number]] [place] [address] Accession [UID]: [id number] [[id number]] Received: Jun 22, 2024@13:38 Collection sample: FLUID Collection date: Jun 22, 2024 13:15 Provider: ANGELA HOLDEN Comment on specimen: LLQ ABSCESS, RECEIVED IN ANAEROBIC TRANSPORT VIAL Test(s) ordered: ANAEROBIC CULTURE............. completed: Jun 28, 2024 * BACTERIOLOGY FINAL REPORT => Jun 28, 2024 10:08 TECH CODE: [id number] CULTURE RESULTS: HEAVY GROWTH MIXED ANAEROBES Comment: [...] Performed By: [facility] [CLIA# [id number]] [place] [address] [facility] Jun 21, 2024 06:12 PM LR MICROBIOLOGY RE PORT: Reporting Lab: [facility] [IA# [id number]] [place] [address] Accession [UID]: [id number] [[id number]] Received: Jun 21, 2024@18:12 Collection sample: BLOOD [...] Report Performed By: [facility] [IA# [id number]] [place] [address] [facility] Jun 21, 2024 06:11 PM LR MICROBIOLOGY RE PORT: Reporting Lab: [facility] [IA# [id number]] [place] [address] Accession [UID]: [id number] [[id number]] Received: Jun 21, 2024@18:11 Collection sample: BLOOD [...] Performed By: [facility] [CLIA# [id number]] [place] [address] [facility] Encounter Notes: All associated encounter notes This section contains the clinical notes associated to the Encounter. Date/Time Encounter Note(s) Provider Source Jul 16, 2024 10:13 AM DIGITAL HARDWARE DESIGN ENGINEER REFER RAL NOTE: LOCAL TITLE: INTERFACILITY REFERRAL RAILROAD CAR INSPECTOR. TRANSFER NOTE STANDARD TITLE: DIGITAL HARDWARE DESIGN ENGINEER REFERRAL NOTE DATE OF NOTE: JUL 16, 2024@10:13 ENTRY DATE: JUL 16, 2024@10:13:24 AUTHOR: TATA AGUIRRE COSIGNER: URGENCY: STATUS: COMPLETED PATIENT ADDRESS: [address] [place], [place] [id number] PHONE: NEXT OF KIN Name/Address: [place] [address] Patient Elig: PRIMARY ELIGIBILTY CODE - NSC [place] Disabilities (If Applicable): RATED DISABILITIES - NONE FOUND Travel is authorized Patient/guardian consents to transfer. Referring physician certifies that benefit of transfer outways risk. To: [facility] From: Other Site: [facility] ED -------- Requested Date/Time: JUL 16, 2024 10:13 Planned Arrival Date/Time: Jun@11:30 Current PCP: Primary Care Team: JUANITO CANA[place] IRIS *WH* Primary Care Provider: JATINDER CABRERA No Associate Provider Assigned. Sending Facility Provider/Title/Pager: Palmira Moore MD [phone] [place] [facility] tactical air control party manager number: [phone] Accepting Facility Provider/Designee/Pager: JR Alex Soto MD [facility] phone number: [phone] Diagnosis: Nausea, Vomiting, Diarrhea, Hyponatremia, Elevated Creat, New Hernia Reason for Referral/Assessment: Nausea, Vomiting, Diarrhea, Hyponatremia, Elevated Creat, New Hernia Advance Directive: Unknown, unlocateable in CPRS SUMMARY OF CARE: Allergies: TERAZOSIN (Mar 13, 2015) Vital Signs: Temp: 96.5F B.P. 138/70 Pulse: 59 Resp: 20 02 Sats: 98& RA Code Status:Full Code Interventions done at the Referring Facility: Labs: Stool (-) for c-diff, Blood cultures unresulted X-rays: CT showing new hernia EKG: Medications Administered: 1L NS, Zosyn, starting Vanco IV Fluid/O2 Administered: NS @ 75ml/hr Independent in Cares: Yes Medically Stable: YES Behaviorally Stable: YES History of violence or agitation Yes Active Behavioral Flag in CPRS Surgically Stable: No PATIENT RISK ASSESSMENT 1. Cognitive impairment present: No 2. At risk for wandering: No 3. Potential danger to self and/or others: Yes 4. Falls risk: No Level of Care Prior to Transfer: ER Level of Care Required at Receiving Site: Medical Unit Mode of Transfer: ALS Ambulance Treatment Req. During Transfer: IV Fluids: Yes, NS @ 75ml/hr IV Drips: Yes, Scarlett and Jv Reports Requested/Sent: Health Summary, Med Profile, Inter-facility Transfer Form, Advance Directive, Imaging Reports/Imaging CD, ER Reports, Progress Notes, Discharge Summary, Surgery Reports, Pathology Reports, Specialty Consultations, Patient Data Exchange (PDX) /alexi/ Tata Aguirre MA, PHN, RN-BC traffic clerk Supervisor [employer] Reservations Signed: 07/16/2024 10:[address] [facility]
--- OUTSIDE RECORDS SUMMARY | 2024-08-01 07:53 | XMS_ITS ---
Author Name [facility] [place] [facility] [place] [facility] [place] Address [address] [place] [address] Care Team Providers Care [employer] Architect Name Role Phone JATINDER CABRERA Primary [...] PART A Sep 29, 2016 PART A [id number] [phone] JUDY WEAVER PATIENT Selected Encounter This section includes the information on record at [place] for the Encounter. Date/Time Encounter Type Encounter Description Reason Provider Source Jun 08, 2024 11:00 AM OFF/OP EST DECEMBER X REQ PHY/[facility] ICD-10-CM N32.81 Overactive bladder ELIAS FINK Alex Encounter Template Text not used by [place] Assessments - Encounter Diagnoses This section includes the primary and secondary diagnoses documented for the Encounter. Date/Time Primary/Secondary Diagnosis Diagnosis Name Provider Source Jul 16, 2024 09:11 AM PRIMARY Overactive bladder ELIAS FINK [facility] Plan of Treatment: Future Appointments (+ 6 months) and Future Tests (+/- 45 days) The Plan of Treatment section includes future care activities for the [facility] [place] [facility] This section includes future appointments and future orders which are active, pending or scheduled. Future Appointments This section includes appointments that were scheduled to occur 6 months from the date of the Encounter, up to a maximum of 20 appointments. The data comes from all [facility]. Appointment Date/Time Appointment Type Appointme nt Facility Name Jun 21, 2024 04:48 PM [facility] Jun 21, 2024 05:45 PM [facility]ORY - NONE [place] [facility] Jun 27, 2024 07:00 AM AMBULATORY - NONE [facility] Jun 27, 2024 07:30 AM AMBULATORY - MEDICINE [facility] Jun 27, 2024 08:00 AM AMBULATORY - MEDICINE [facility] Jul 03, 2024 05:55 AM AMBULATORY - NONE [facility] Jul 13, 2024 08:15 AM AMBULATORY - NONE [facility] Jul 16, 2024 08:40 AM AMBULATORY - NONE [facility] Jul 16, 2024 11:30 AM AMBULATORY - NONE [facility] Active, Pending, and Scheduled Orders This section includes a listing of several types of active, pending, and scheduled orders, including clinic medications orders, diagnostic test orders, procedure orders and consult orders; where the start date of the order is 45 days before the date of the Encounter or 45 days after the date of theEncounter. The data comes from all [facility]. Test Date/Time Test Type Test Details Facility Name Apr 26, 2024 10:10 AM Laboratory - Microbiology Order CULTURE & SUSCEPTIBILITY WOUND OTHER WC ONCE ~For Test: CULTURE & SUSCEPTIBILITY ~Culture sample from JUAN drain output [facility] Apr 26, 2024 10:10 AM Laboratory - Microbiology Order GRAM STAIN WOUND OTHER WC ONCE ~For Test: GRAM STAIN ~JUAN drain culture/gram stain [facility] May 28, 2024 12:00 AM Laboratory - Blood Bank Order TYPE & SCREEN - LAB BLOOD SP [facility] Jun 08, 2024 09:57 AM Laboratory - Chemistry Order URINALYSIS URINE WC ONCE [facility] Jun 12, 2024 12:00 AM Laboratory - Chemistry Order BNP PLASMA SP ONCE [facility] Jun 21, 2024 05:45 PM Laboratory - Blood Bank Order TYPE & SCREEN - LAB BLOOD WC [facility] Jul 03, 2024 12:00 AM Laboratory - Blood Bank Order TYPE & SCREEN - LAB BLOOD WC [facility] Jul 16, 2024 12:00 AM Laboratory - Chemistry Order CBC BLOOD SP ONCE [facility] [...] Range Comment Jul 08, 2024 10:50 AM [facility] URINALYSIS Specimen Type: URINE No comment entered. Ordering Provider: KATELYNN PERSON Report Released Date/Time: Jul 08, 2024 08:41 AM Reporting Lab: [facility] [address] Performing Lab: [facility] [address] URINE COLOR YELLOW SPECIFIC GRAVITY >1.050 H [...] 2024 04:49 PM Reporting Lab: [facility] [address] Performing Lab: [facility] [address] WBC 17.5 H 4.0-11.0 RBC 4.88 4.60-6.20 [...] 2024 04:49 PM Reporting Lab: [facility] [address] Performing Lab: [facility] [address] PHOSPHORUS 2.6 mg/dL 2.3-4.3 Jul 08, 2024 09:54 AM [facility] BASIC METABOLIC PANEL+MG Specimen Type: PLASMA Comment: Specimen received in Lab at: [id number] Ordering Provider: JUANCARLOS ECHOLS Report Released Date/Time: Jul 07, 2024 04:49 PM Reporting Lab: [facility] [address] Performing Lab: [facility] [address] CREATININE 0.9 mg/dL 0.7-1.2 UREA NITROGEN 26 [...] 2024 12:26 PM Reporting Lab: [facility] [address] Performing Lab: [facility] [address] C DIFF TOX B GENE PCR NEGATIVE Negative Jul 07, 2024 07:41 AM [facility] PHOSPHORUS Specimen Type: PLASMA No comment entered. Ordering Provider: JEVON ZAZUETA Report Released Date/Time: Jul 06, 2024 03:44 PM Reporting Lab: [facility] [address] Performing Lab: [facility] [address] PHOSPHORUS 3.1 mg/dL 2.3-4.3 Jul 07, 2024 07:41 AM [facility] BASIC METABOLIC PANEL+MG Specimen Type: PLASMA No comment entered. Ordering Provider: JEVON ZAZUETA Report Released Date/Time: Jul 06, 2024 03:44 PM Reporting Lab: [facility] [address] Performing Lab: [facility] [address] CREATININE 0.9 mg/dL 0.7-1.2 UREA NITROGEN 20 [...] 2024 03:44 PM Reporting Lab: [facility] [address] Performing Lab: [facility] [address] WBC 21.2 H 4.0-11.0 RBC 5.09 4.60-6.20 [...] 2024 01:22 PM Reporting Lab: [facility] [address] Performing Lab: [facility] [address] WBC 18.0 H 4.0-11.0 RBC 4.83 4.60-6.20 [...] 2024 01:22 PM Reporting Lab: [facility] [address] Performing Lab: [facility] [address] PHOSPHORUS 3.6 mg/dL 2.3-4.3 Jul 06, 2024 07:21 AM [facility] BASIC METABOLIC PANEL+MG Specimen Type: PLASMA No comment entered. Ordering Provider: JEVON ZAZUETA Report Released Date/Time: Jul 05, 2024 01:22 PM Reporting Lab: [facility] [address] Performing Lab: [facility] [address] CREATININE 0.7 mg/dL 0.7-1.2 UREA NITROGEN 12 [...] 2024 09:39 AM Reporting Lab: [facility] [address] Performing Lab: [facility] [address] MAGNESIUM 2.0 mg/dL 1.6-2.6 Jul 05, 2024 07:17 AM [facility] PHOSPHORUS Specimen Type: PLASMA No comment entered. Ordering Provider: JUANCARLOS ECHOLS S Report Released Date/Time: Jul 04, 2024 09:39 AM Reporting Lab: [facility] [address] Performing Lab: [facility] [address] PHOSPHORUS 2.0 mg/dL L 2.3-4.3 Jul 05, 2024 07:17 AM [facility] BASIC METABOLIC PANEL+MG Specimen Type: PLASMA No comment entered. Ordering Provider: JUANCARLOS ECHOLS S Report Released Date/Time: Jul 04, 2024 09:39 AM Reporting Lab: [facility] [address] Performing Lab: [facility] [address] CREATININE 0.7 mg/dL 0.7-1.2 UREA NITROGEN 12 [...] 2024 09:39 AM Reporting Lab: [facility] [address] Performing Lab: [facility] [address] WBC 18.3 H 4.0-11.0 RBC 4.49 L [...] 2024 06:31 PM Reporting Lab: [facility] [address] Performing Lab: [facility] [address] CREATININE 0.7 mg/dL 0.7-1.2 UREA NITROGEN 16 [...] 2024 06:31 PM Reporting Lab: [facility] [address] Performing Lab: [facility] [address] PHOSPHORUS 2.8 mg/dL 2.3-4.3 Jul 04, 2024 07:16 AM [facility] CBC Specimen Type: BLOOD No comment entered. Ordering Provider: GABINO CAMERON Report Released Date/Time: Jul 03, 2024 06:31 PM Reporting Lab: [facility] [address] Performing Lab: [facility] [address] WBC 20.6 H 4.0-11.0 RBC 4.63 4.60-6.20 [...] 2024 06:31 PM Reporting Lab: [facility] [address] Performing Lab: [facility] [address] WBC 20.6 H 4.0-11.0 RBC 4.63 4.60-6.20 [...] 2024 06:31 PM Reporting Lab: [facility] [address] Performing Lab: [facility] [address] BNP 292 pg/mL H <99 Jul 03, 2024 10:32 PM [facility] FINGERSTICK GLUCOSE Specimen Type: BLOOD Comment: Save Result Nurse Notified Ordering Provider: KATELYNN PERSON Report Released Date/Time: Jul 03, 2024 10:50 PM Reporting Lab: [facility] [address] Performing Lab: [facility] [address] FINGERSTICK GLUCOSE 126 mg/dL H 70-100 Jul 03, 2024 05:33 PM [facility] FINGERSTICK GLUCOSE Specimen Type: BLOOD Comment: Save Result Nurse Notified Ordering Provider: KATELYNN PERSON Report Released Date/Time: Jul 03, 2024 05:46 PM Reporting Lab: [facility] [address] Performing Lab: [facility] [address] FINGERSTICK GLUCOSE 141 mg/dL H 70-100 Jul 03, 2024 02:31 PM [facility] POC ABG/ELECTROLYTES Specimen Type: ARTERIAL BLOOD Comment: FIO2 = 97% Patient Temp: 36.0 C Sample Type = ARTERIAL Ordering Provider: MAZIN ARREDONDO Report Released Date/Time: Jul 03, 2024 01:48 PM Reporting Lab: [facility] [address] Performing Lab: [facility] [address] POC PH 7.387 7.35-7.45 POC PCO2 34.4 [...] 2024 01:48 PM Reporting Lab: [facility] [address] Performing Lab: [facility] [address] POC PH 7.280 L 7.35-7.45 POC PCO2 [...] 2024 04:01 PM Reporting Lab: [facility] [address] Performing Lab: [facility] [address] URINE COLOR YELLOW SPECIFIC GRAVITY 1.031 1.003-1.03 [...] 2024 03:59 PM Reporting Lab: [facility] [address] Performing Lab: [facility] [address] WBC 15.8 H 4.0-11.0 RBC 5.11 4.60-6.20 [...] 2024 06:07 PM Reporting Lab: [facility] [address] Performing Lab: [facility] [address] CREATININE 0.8 mg/dL 0.7-1.2 UREA NITROGEN 13 [...] 2024 06:07 PM Reporting Lab: [facility] [address] Performing Lab: [facility] [address] WBC 15.5 H 4.0-11.0 RBC 4.93 4.60-6.20 [...] 2024 05:51 PM Reporting Lab: [facility] [address] Performing Lab: [facility] [address] CREATININE 0.7 mg/dL 0.7-1.2 UREA NITROGEN 16 [...] 2024 05:51 PM Reporting Lab: [facility] [address] Performing Lab: [facility] [address] WBC 14.9 H 4.0-11.0 RBC 5.09 4.60-6.20 [...] 2024 05:51 PM Reporting Lab: [facility] [address] Performing Lab: [facility] [address] WBC 16.9 H 4.0-11.0 RBC 5.28 4.60-6.20 [...] 2024 05:51 PM Reporting Lab: [facility] [address] Performing Lab: [facility] [address] CREATININE 0.7 mg/dL 0.7-1.2 UREA NITROGEN 17 [...] 2024 05:45 PM Reporting Lab: [facility] [address] Performing Lab: [facility] [address] URINE COLOR YELLOW SPECIFIC GRAVITY 1.041 H [...] 2024 06:07 PM Reporting Lab: [facility] [address] Performing Lab: [facility] [address] POC CREATININE 1.1 mg/dL 0.6-1.3 Jun 21, 2024 05:30 PM [facility] POC ABG/LACTATE Specimen Type: VENOUS BLOOD No comment entered. Ordering Provider: DELIA MARTINEZ Report Released Date/Time: Jun 21, 2024 06:07 PM Reporting Lab: [facility] [address] Performing Lab: [facility] [address] POC PH 7.470 H 7.31-7.41 POC PCO2 [...] 2024 05:30 PM Reporting Lab: [facility] [address] Performing Lab: [facility] [address] .INR 1.2 H 0.8-1.1 .PT 13.9 s H 9.4-12.5 Jun 21, 2024 05:24 PM [facility] LIPASE Specimen Type: PLASMA No comment entered. Ordering Provider: DELIA MARTINEZ Report Released Date/Time: Jun 21, 2024 05:30 PM Reporting Lab: [facility] [address] Performing Lab: [facility] [address] LIPASE 32 U/L <60 Jun 21, 2024 05:24 PM [facility] EXTRA GOLD GEL TUBE Specimen Type: SERUM No comment entered. Ordering Provider: DELIA MARTINEZ Report Released Date/Time: Jun 21, 2024 05:41 PM Reporting Lab: [facility] [address] Performing Lab: [facility] [address] EXTRA GOLD GEL TUBE RECEIVED Jun 21, 2024 05:24 PM [facility] COMPREHENSIVE METABOLIC PANEL+MG Specimen Type: PLASMA No comment entered. Ordering Provider: DLEIA MARTINEZ Report Released Date/Time: Jun 21, 2024 05:30 PM Reporting Lab: [facility] [address] Performing Lab: [facility] [address] CREATININE 0.9 mg/dL 0.7-1.2 UREA NITROGEN 29 [...] 2024 05:30 PM Reporting Lab: [facility] [address] Performing Lab: [facility] [address] WBC 21.3 H 4.0-11.0 RBC 5.48 4.60-6.20 [...] 2024 09:02 AM Reporting Lab: [facility] [address] Performing Lab: [facility] [address] .INR 1.0 0.8-1.1 .PT 11.8 s 9.4-12.5 [...] 2024 09:02 AM Reporting Lab: [facility] [address] Performing Lab: [facility] [address] HEMOGLOBIN A1C 4.9 4.0-6.0 Jun 08, 2024 10:59 AM [facility] CBC Specimen Type: BLOOD No comment entered. Ordering Provider: PALMIRA POWELL Report Released Date/Time: May 28, 2024 09:02 AM Reporting Lab: [facility] [address] Performing Lab: [facility] [address] WBC 16.1 H 4.0-11.0 RBC 5.02 4.60-6.20 [...] 2024 09:02 AM Reporting Lab: [facility] [address] Performing Lab: [facility] [address] CREATININE 0.9 mg/dL 0.7-1.2 UREA NITROGEN 15 mg/dL 8-26 GLUCOSE 93 mg/dL 70-100 SODIUM 139 mmol/L 136-145 POTASSIUM 3.7 mmol/L 3.5-5.1 CHLORIDE 106 mmol/L 98-107 CO2 25 mmol/L 22-29 CALCIUM 9.8 mg/dL 8.4-10.2 MAGNESIUM 2.1 mg/dL 1.6-2.6 ANION GAP 8 mmol/L 5-15 .CREAT EGFR(CKD-EPI) >90 >60 May 21, 2024 06:59 AM [facility] BASIC METABOLIC PANEL+MG Specimen Type: PLASMA No comment entered. Ordering Provider: GOLDIE CABRERA Report Released Date/Time: May 15, 2024 08:34 AM Reporting Lab: [facility] [address] Performing Lab: [facility] [address] CREATININE 0.9 mg/dL 0.7-1.2 UREA NITROGEN 18 [...] Source Jun 08, 2024 11:43 AM 147/73 [facility] Jun 08, 2024 11:43 AM 97.5 58 143/64 18 97 0 70 206.4 30 [facility] Social History: Smoking [...] 2 VIEWS PA AND LAT: FLACA WEAVER [id number] -1950 M Exm Date: JUL 08, 2024@10:09 Req Phys: KATELYNN PERSON Pat Loc: 2KG/07-08-2024@11:49 Img Loc: MAIN X-RAY Service: [place] [address] (Case 24 COMPLETE) CHEST 2 VIEWS PA AND LAT (RAD Detailed) CPT:65176 Reason for Study: Uptrending WBC, POD 5 Clinical History: IS NOT under investigation for COVID-19 or is COVID-19 negative POD 5, work up for uptrending wbc Responsible provider name and phone number to notify for critical findings if other than user placing the order and pager listed below: User placing orders pager: Katelynn Pesron LAST CREATININE 0.9 (07/07/24) Report Status: Verified Date Reported: JUL 08, 2024 Date Verified: JUL 08, 2024 Keysmith E-Sig: Report: CHEST 2 VIEWS PA AND [...] cardiopulmonary disease. READING PHYSICIAN: Sarbjit Vaughn M.D. -[id number] 07/08/2024 12:46 [facility] National Teleradiology Program [phone] (For Medical Practitioner Use Only) Attention Patients / Veterans: If you have questions or concerns about these test results, please contact your ordering provider or primary care team. Primary Interpreting Staff: RADIOLOGY,OUTSIDE SERVICE, Staff Physician / RADIOLOGY,OUTSIDE SERVICE [facility] Jul 08, 2024 10:[address] (AP) ABDOMEN/PELVIS W CONTRAST: FLACA WEAVER [id number] -1950 M Exm Date: JUL 08, 2024@10:00 Req Phys: KATELYNN PERSON Loc: 2K/07-08-2024@12:07 Img Loc: CT IMAGING Service: [place] [address] (Case 22 COMPLETE) CT (AP) ABDOMEN/PELVIS W CONTRAST(CT Detailed) CPT:43006 Contrast Media : Non-ionic Iodinated Reason for [...] PLASMA .CREAT EGFR(CKD-E >90 Ref: >=60 Allergies: (Cabery only) TERAZOSIN (Mar 13, 2015) Report Status: Verified Date Reported: JUL 08, 2024 Date Verified: JUL 08, 2024 Keysmith E-Sig: Report: CT (AP) ABDOMEN/PELVIS W CONTRAST [...] as noted above READING PHYSICIAN: Celestino Blanc -[id number] 07/08/2024 13:04 EST [facility] National Teleradiology Program [phone] (For Medical Practitioner Use Only) Attention Patients / Veterans: If you have questions or concerns about these test results, please contact your ordering provider or primary care team. Primary Interpreting Staff: RADIOLOGY,OUTSIDE SERVICE, Staff Physician / RADIOLOGY,OUTSIDE SERVICE [facility] Jun 22, 2024 11:49 AM ABSCESS DRAIN PLACEMENT PERITONEAL (P): FLACA WEAVER [id number] -1950 M Exm Date: JUN 22, 2024@11:49 Req Phys: ADINAANGELA Mcfarlane Amanda Loc: [facility]/06-22-2024@17:14 Img Loc: INTERVENTIONAL RADIOLOGY Service: [place] [address] (Case [id number] COMPLETE) IR PERITONEAL/RETROPERITONEAL PER(ANI Detailed) CPT:77767 Reason for Study: diverticulitis with abscess (Case 3570 COMPLETE) IR MOD SEDATION 10-22 MIN (ANI Detailed) CPT:62565 Clinical History: [place] IS NOT under investigation for COVID-19 or is COVID-19 negative 73 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 please place abscess drain. Contact number for responsible provider who can be reached for any questions or notifications of critical findings: [phone] n/a LAST CREATININE 0.9 (06/21/24) Report Status: Verified Date Reported: JUN 22, 2024 Date Verified: JUN 22, 2024 Keysmith E-Sig:/ES/LISA PENDLETON MD Report: PROCEDURES: Placement of [...] anesthesia. Using real-time CT fluoroscopy, a 5 [place] centesis catheter was advanced into the collection in the left pelvis. A wire was coiled in the collection. The tract into the collection was dilated to accommodate the 12 [place]an locking pigtail drainage catheter. There was return [...] Primary Interpreting Staff: LISA PENDLETON MD, RADIOLOGIST (Keysmith) /JRT LISA PENDLETON [facility] Jun 22, 2024 11:[address] NEEDLE PLACEMENT (P): FLACA WEAVER [id number] -1950 M Exm Date: JUN 22, 2024@11:48 Req Phys: ANGELA HOLDEN [facility] Loc: [facility]/06-22-2024@17:14 Img Loc: CT IMAGING Service: [place] [address] (Case [id number] COMPLETE) CT SCAN FOR NEEDLE PLACEMENT (CT Detailed) CPT:09031 Reason for Study: l pelvic abscess drain Clinical History: Report Status: Verified Date Reported: JUN 22, 2024 Date Verified: JUN 22, 2024 Keysmith E-Sig:/ES/LISA PENDLETON MD Report: PROCEDURES: Placement of [...] anesthesia. Using real-time CT fluoroscopy, a 5 [place] Recicl[place]esis catheter was advanced into the collection in the left pelvis. A wire was coiled in the collection. The tract into the collection was dilated to accommodate the 12 [place]an locking pigtail drainage catheter. There was return [...] Primary Interpreting Staff: LISA PENDLETON MD, RADIOLOGIST (Keysmith) /JRT LISA PENDLETON [facility] Jun 21, 2024 06:[address] (AP) ABDOMEN/PELVIS (P): FLACA WEAVER [id number] -1950 M Ex Date: JUN 21, 2024@18:09 Req Phys: DELIA MARTINEZ Loc: [facility] EMERGENCY DEPT WALK-IN (Re Img Loc: CT IMAGING Service: [place] [address] (Case [id number] COMPLETE) CT (AP) ABDOMEN/PELVIS W CONTRAST(CT Detailed) CPT:28511 Contrast Media : Non-ionic Iodinated Reason for [...] PLASMA .CREAT EGFR(CKD-E >90 Ref: >=60 Allergies: (Cabery only) TERAZOSIN (Mar 13, 2015) Defer to [...] 21, 2024 Date Verified: JUN 21, 2024 Keysmith E-Sig:/ES/CARLOS A CUNNINGHAM DO Report: EXAMINATION: CT [...] Interpreting Staff: CARLOS A CUNNINGHAM DO, RADIOLOGIST (Keysmith) /TIFFANIEB CARLOS A CUNNINGHAM [facility] May 25, 2024 09:00 AM IR FISTULOGRAM OR SINOGRAM : FLACA WEAVER [id number] -1950 M Exm Date: MAY 25, 2024@09:00 Req Phys: AMINTA PRUITT Pat Loc: [facility] XRAY INTERVENTIONAL RADIO Img Loc: INTERVENTIONAL RADIOLOGY Service: [place] [address] (Case [id number] COMPLETE) IR FISTULOGRAM OR SINOGRAM (ANI Detailed) CPT:95317 Contrast Media : unspecified contrast media Reason for Study: s/p drain placement for diverticular abscess- assess for drain Clinical History: [place] IS NOT under investigation for COVID-19 or [...] 25, 2024 Date Verified: MAY 25, 2024 Keysmith E-Sig:/ES/DAVID BURNS MD Report: PROCEDURES 05/25/2024 9:48 [...] Primary Interpreting Staff: DAVID BURNS MD, RADIOLOGIST (Keysmith) /CSS DAVID BURNS [facility] May 25, 2024 08:[address] (AP) ABDOMEN/PELVIS (P): MEGFLACA LOBO [id number] -1950 M Exm Date: MAY 25, 2024@08:23 Req Phys: DAVID BURNS Pat Loc: [facility] XRAY INTERVENTIONAL RADIO Img Loc: CT IMAGING Service: [place] [address] (Case [id number] COMPLETE) CT (AP) ABDOMEN/PELVIS W/O CONTRA(CT Detailed) CPT:08435 Reason for Study: assess abscess and possible drain removal Clinical History: no contrast per venancio Per Joint Commission Standards, by signing this diagnostic imaging request the ordering provider confirms they have considered patients age and recent imaging history. Defer to radiologist for final CT protocol. Contact number for responsible provider who can be reached for any questions or notifications of critical findings: [phone] stampe LAST 3: Collection DT Specimen Test [...] PLASMA .CREAT EGFR(CKD-E >90 Ref: >=60 Allergies: (Cabery only) TERAZOSIN (Mar 13, 2015) Report Status: Verified Date Reported: MAY 25, 2024 Date Verified: MAY 25, 2024 Keysmith E-Sig:/ES/JESSENIA GOODMAN MD Report: EXAM: CT abdomen and pelvis without intravenous contrast. 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 TECHNIQUE: Helical acquisition of image data was performed for the abdomen and pelvis without intravenous contrast. Dose: 512.57 mGy*cm COMPARISON: CT abdomen pelvis with contrast 05/11/[address] abdomen pelvis 04/23/2024.; CT abdomen pelvis 05/05/2020 FINDINGS: SHORT ORDER FRY COOK: Pigtail catheter projecting over the left hemipelvis [...] Primary Interpreting Staff: JESSENIA GOODMAN MD, RADIOLOGIST (Keysmith) Primary Interpreting Resident: YOHANNES MELO DO, RIDER TICKET WORKER /JESSENIA LOUIE [facility] May 11, 2024 12:39 PM IR FISTULOGRAM / SINOGRAM (P): MEGFLACA YAMIL [id number] -1950 Ex Date: MAY 11, 2024@12:39 Req Phys: PALMIRA POWELL Loc: [facility] C/R FOLLOW-UP CLINIC (Req' Img Loc: INTERVENTIONAL RADIOLOGY Service: [place] [address] (Case [id number] COMPLETE) IR INJECTION FOR SINOGRAM DIAGNOS(ANI Detailed) CPT:69978 Contrast Media : Non-ionic Iodinated Reason for Study: s/p drain placement for diverticular abscess- assess for drain (Case 3772 COMPLETE) IR FISTULOGRAM OR SINOGRAM (ANI Detailed) CPT:90635 Contrast Media : unspecified contrast media (Case 3773 COMPLETE) IR DRAINAGE CATHETER SUPPLY (ANI Detailed) CPT:C1729 Clinical History: IS NOT under investigation for COVID-19 or is COVID-19 negative s/p drain placement for diverticular abscess- assess for drain removal Contact number for responsible provider who can be reached for any questions or notifications of critical findings: [phone] Palmira Powell MD LAST CREATININE 0.7 (05/04/24) Report Status: Verified Date Reported: MAY 11, 2024 Date Verified: MAY 11, 2024 Keysmith E-Sig:/ES/AMINTA PRUITT MD Report: PROCEDURES Abdominal drain [...] Interpreting Staff: AMINTA PRUITT MD, INTERVENTIONAL RADIOLOGIST (Keysmith) /AMINTA VELAZCO [facility] May 11, 2024 11:[address] (AP) ABDOMEN/PELVIS (P): MEGFLACA LOBO [id number] -1950 M Exm Date: MAY 11, 2024@11:40 Req Phys: PALMIRA POWELL Loc: [facility] C/R FOLLOW-UP CLINIC (Req' Img Loc: CT IMAGING Service: [place] [address] (Case [id number] COMPLETE) CT (AP) ABDOMEN/PELVIS W CONTRAST(CT Detailed) CPT:49411 Contrast Media : Non-ionic Iodinated Reason for [...] any questions or notifications of critical findings: [phone] Palmira Powell MD LAST 3: Collection DT [...] PLASMA .CREAT EGFR(CKD-E >90 Ref: >=60 Allergies: (Cabery only) TERAZOSIN (Mar 13, 2015) Report Status: Verified Date Reported: MAY 11, 2024 Date Verified: MAY 11, 2024 Keysmith E-Sig:/ES/LISA PENDLETON MD Report: CT abdomen and [...] Primary Interpreting Staff: LISA PENDLETON MD, RADIOLOGIST (Keysmith) /LISA CARDONA [facility] Pathology Reports: +/- 30 [...] $APHDR Reporting Lab: [facility] [CLIA# [id number]] [place] [address] - - - - - - - [...] - PATHOLOGY REPORT Accession No. [id number] - - - - - - - [...] - PATHOLOGY REPORT Accession No. [id number] - - - - - - - [...] Second circumferential surgical margin, en face; E-F: [employer] Director diverticula; G: [employer] Director section of mesentery; H: Random telephone sales [...] colonic tissue ring, bisected transversely. SS. (D)[facility] MICROSCOPIC DESCRIPTION: Microscopic examination performed. DIAGNOSIS: 1. Colon, sigmoid, sigmoidectomy-- - Diverticulosis with perforation and focal abscess formation 2. Colon, anastomotic rings, excision-- - Viable colonic mucosa without diagnostic abnormality /alexi/ EDUARDO PALOMARES MD STAFF PATHOLOGIST Signed Jul 06, 2024@10:40 Performing Laboratory: Surgical Pathology Report Performed By: [facility] [CLIA# [id number]] [place] [address] $FTR - - - - - - - - - - - - - - - - - - - - - - - - - - - - - - - - - - - - - - - - (End of report) EDUARDO PALOMARES MD [facility] Date Jul 06, 2024 - - - - - - - - - - - - - - - - - - - - - - - - - - - - - - - - - - - - - - - - [employer] STANDARD FORM 515 ID:[id number] SEX:M :1950 AGE: 73 LOC:[id number] ADM:Jun DX:DIVERTICULITIS PCP: Jatinder Cabrera /alexi/ EDUARDO PALOMARES MD STAFF PATHOLOGIST Signed: 07/06/2024 10:40 EDUARDO PALOMARES [facility] Jun 22, 2024 01:15 PM LR MICROBIOLOGY RE PORT: Reporting Lab: [facility] [CLIA# [id number]] [place] [address] Accession [UID]: [id number] [[id number]] Received: Jun 22, 2024@13:38 Collection sample: FLUID Collection date: Jun 22, 2024 13:15 Provider: ANGELA HOLDEN Comment on specimen: LLQ ABSCESS, RECEIVED IN ANAEROBIC TRANSPORT VIAL Test(s) ordered: GRAM STAIN.................... completed: Jun 22, 2024 15:03 CULTURE & SUSCEPTIBILITY...... completed: Jun 25, 2024 * BACTERIOLOGY FINAL REPORT => Jun 25, 2024 10:56 TECH CODE: [id number] GRAM STAIN: DIRECT SMEAR of specimen before [...] Report Performed By: [facility] [CLIA# [id number]] [place] [address] [facility] Jun 22, 2024 01:15 PM LR MICROBIOLOGY RE PORT: Reporting Lab: [facility] [CLIA# [id number]] [place] [address] Accession [UID]: [id number] [[id number]] Received: Jun 22, 2024@13:38 Collection sample: FLUID Collection date: Jun 22, 2024 13:15 Provider: ANGELA HOLDEN Comment on specimen: LLQ ABSCESS, RECEIVED IN ANAEROBIC TRANSPORT VIAL Test(s) ordered: ANAEROBIC CULTURE............. completed: Jun 28, 2024 * BACTERIOLOGY FINAL REPORT => Jun 28, 2024 10:08 TECH CODE: [id number] CULTURE RESULTS: HEAVY GROWTH MIXED ANAEROBES Comment: [...] Report Performed By: [facility] [CLIA# [id number]] [place] [address] [facility] Jun 21, 2024 06:12 PM LR MICROBIOLOGY RE PORT: Reporting Lab: [facility] [CLIA# [id number]] [place] [address] Accession [UID]: [id number] [[id number]] Received: Jun 21, 2024@18:12 Collection sample: BLOOD [...] Report Performed By: [facility] [CLIA# [id number]] [place] [address] [facility] Jun 21, 2024 06:11 PM LR MICROBIOLOGY RE PORT: Reporting Lab: [facility] [CLIA# [id number]] [place] [address] Accession [UID]: [id number] [[id number]] Received: Jun 21, 2024@18:11 Collection sample: BLOOD [...] Report Performed By: [facility] [CLIA# [id number]] [place] [address] [facility] Jun 08, 2024 11:00 AM LR MICROBIOLOGY RE PORT: Reporting Lab: [facility] [CLIA# [id number]] [place] [address] Accession [UID]: [id number] [[id number]] Received: Jun 08, 2024@11:00 Collection sample: URINE Collection date: Jun 08, 2024 11:00 Provider: PALMIRA POWELL Comment on specimen: urine Test(s) ordered: CULTURE & SUSCEPTIBILITY...... completed: Jun 09, 2024 * BACTERIOLOGY FINAL REPORT => Jun 09, 2024 19:12 TECH CODE: [id number] CULTURE RESULTS: ESCHERICHIA COLI - Quantity: >100,000 [...] Report Performed By: [facility] [CLIA# [id number]] [address] [place] [address] [facility] Encounter Notes: All associated encounter notes This section contains the clinical notes associated to the Encounter. Date/Time Encounter Note(s) Provider Source Jul 16, 2024 09:10 AM UROLOGY NURSING OU TPATIENT NOTE: LOCAL TITLE: UROLOGY CLINIC NURSING NOTE STANDARD TITLE: UROLOGY NURSING OUTPATIENT NOTE DATE OF NOTE: JUL 16, 2024@09:10 ENTRY DATE: JUL 16, 2024@09:10:32 AUTHOR: ELIAS FINK EXP COSIGNER: URGENCY: STATUS: COMPLETED Nursing Procedures: Specimen Collection: Urinalysis sent to lab. Urine culture sent to lab. /alexi/ ELIAS FINK LPN LICENSED PRACTICAL NURSE Signed: 07/16/2024 09:11 ELIAS FINK [facility]
--- OUTSIDE RECORDS SUMMARY | 2024-08-01 07:53 | XMS_ITS ---
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 Date/Time Primary/Secondary Diagnosis Diagnosis Name Provider Source Jul 21, 2024 02:30 PM Diagnosis for Length of Stay Severe sepsis without septic shock [facility] Jul 21, 2024 02:30 PM SECONDARY Acidosis, unspecified [facility] Jul 21, 2024 02:30 PM SECONDARY Acute kidney failure, unspecified [facility] Jul 21, 2024 02:30 PM SECONDARY Adult failure to thrive [facility] Jul 21, 2024 02:30 PM SECONDARY Athscl heart disease of [place] coronary artery w/o ang pctrs [facility] Jul 21, 2024 02:30 PM SECONDARY Body mass index [BMI] 29.0-29.9, adult [facility] Jul 21, 2024 02:30 PM SECONDARY Chronic kidney disease, unspecified [facility] Jul 21, 2024 02:30 PM SECONDARY Coronary angioplasty status [facility] Jul 21, 2024 02:30 PM SECONDARY Dehydration [facility] Jul 21, 2024 02:30 PM SECONDARY 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 [facility] Jul 21, 2024 02:30 PM SECONDARY 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 [facility] Jul 21, 2024 02:30 PM SECONDARY Hyperlipidemia, unspecified [facility] Jul 21, 2024 02:30 PM SECONDARY Hypo-osmolality and hyponatremia [facility] Jul 21, 2024 02:30 PM SECONDARY Hypotension, unspecified [facility] Jul 21, 2024 02:30 PM SECONDARY Incisional hernia without obstruction or gangrene [facility] Jul 21, 2024 02:30 PM SECONDARY Low back pain, unspecified [facility] Jul 21, 2024 02:30 PM SECONDARY Nausea [facility] Jul 21, 2024 02:30 PM SECONDARY Obstructive sleep apnea (adult) (pediatric) [facility] Jul 21, 2024 02:30 PM SECONDARY Oth disorders of electrolyte and fluid balance, NEC [facility] Jul 21, 2024 02:30 PM SECONDARY Other complications of enterostomy [facility] Jul 21, 2024 02:30 PM SECONDARY Other fecal abnormalities [facility] Jul 21, 2024 02:30 PM SECONDARY Unspecified abdominal pain [facility] Jul 21, 2024 02:30 PM SECONDARY Unspecified protein-calorie malnutrition [facility] Jul 21, 2024 02:30 PM SECONDARY Unspecified systolic (congestive) heart failure [facility] Jul 21, 2024 02:30 PM SECONDARY Vesicointestinal fistula [facility] Plan of Treatment: Future Appointments [...] of theEncounter. The data comes from all [facility]. Test Date/Time Test Type Test Details Facility Name Jun 08, 2024 09:57 AM Laboratory - Chemi stry Order URINALYSIS URINE WC ONCE [facility] Jun 12, 2024 12:00 AM Laboratory - Chemi stry Order BNP PLASMA SP ONCE [facility] Jun 21, 2024 05:45 PM Laboratory - Blood Bank Order TYPE & SCREEN - LAB BLOOD [facility] Jul 03, 2024 12:00 AM Laboratory - Blood Bank Order TYPE & SCREEN - LAB BLOOD [facility] Jul 16, 2024 12:00 AM Laboratory - Chemi stry Order CBC BLOOD SP ONCE [facility] Jul 17, 2024 12:00 AM Laboratory - Chemi stry Order BASIC METABOLIC PANEL+MG PLASMA SP ONCE [facility] Lab Results: +/- 30 [...] Range Comment Jul 21, 2024 10:38 AM [facility] BASIC METABOLIC PANEL+MG Specimen Type: PLASMA No comment entered. Ordering Provider: SARAI GOLDEN Report Released Date/Time: Jul 20, 2024 06:50 PM Reporting Lab: [facility] [phone] Performing Lab: [facility] [phone] CREATININE 0.8 mg/dL 0.7-1.2 UREA NITROGEN 31 mg/dL H 8-26 GLUCOSE 120 mg/dL H 70-100 SODIUM 125 mmol/L L 136-145 POTASSIUM 4.4 mmol/L 3.5-5.1 CHLORIDE 100 mmol/L 98-107 CO2 17 mmol/L L 22-29 CALCIUM 9.6 mg/dL 8.4-10.2 MAGNESIUM 1.9 mg/dL 1.6-2.6 ANION GAP 8 mmol/L 5-15 .CREAT EGFR(CKD-EPI) >90 >60 Jul 21, 2024 10:38 AM [facility] CBC Specimen Type: BLOOD No comment entered. Ordering Provider: SARAI GOLDEN Report Released Date/Time: Jul 20, 2024 06:50 PM Reporting Lab: [facility] [phone] Performing Lab: [facility] [address] WBC 16.0 H 4.0-11.0 RBC 5.16 4.60-6.20 HGB 15.8 g/dL 13.5-17.9 HCT 45.5 41.0-54.0 MCV 88.2 fL 80.0-100.0 MCH 30.6 pg 27.0-33.0 MCHC 34.7 g/dL 32.0-37.5 PLT 428 H 150-400 MPV 10.8 fL 9.1-13.0 RDW 13.6 11.5-14.5 Jul 20, 2024 01:00 PM [facility] SODIUM,URINE RANDOM Specimen Type: URINE No comment entered. Ordering Provider: SARAI GOLDEN Report Released Date/Time: Jul 20, 2024 08:22 AM Reporting Lab: [facility] [phone] Performing Lab: [facility] [phone] SODIUM,URINE RANDOM <20 mmol/L Jul 20, 2024 01:00 PM [facility] OSMOLALITY,URINE Specimen Type: URINE No comment entered. Ordering Provider: SARAI GOLDEN Report Released Date/Time: Jul 20, 2024 08:22 AM Reporting Lab: [facility] [phone] Performing Lab: [facility] [address] OSMOLALITY,URIN E 648 mosm/kg 500-800 Jul 20, 2024 06:45 AM [facility] BASIC METABOLIC PANEL+MG Specimen Type: PLASMA No comment entered. Ordering Provider: SARAI GOLDEN Report Released Date/Time: Jul 19, 2024 06:13 PM Reporting Lab: [facility] [phone] Performing Lab: [facility] [address] CREATININE 0.8 mg/dL 0.7-1.2 UREA NITROGEN 36 mg/dL H 8-26 GLUCOSE 111 mg/dL H 70-100 SODIUM 121 mmol/L L 136-145 POTASSIUM 4.1 mmol/L 3.5-5.1 CHLORIDE 99 mmol/L 98-107 CO2 14 mmol/L L 22-29 CALCIUM 9.5 mg/dL 8.4-10.2 MAGNESIUM 1.8 mg/dL 1.6-2.6 ANION GAP 8 mmol/L 5-15 .CREAT EGFR(CKD-EPI) >90 >60 Jul 20, 2024 06:43 AM [facility] CBC & DIFF Specimen Type: BLOOD Comment: Automated Differential Performed Ordering Provider: SARAI GOLDEN Report Released Date/Time: Jul 19, 2024 06:13 PM Reporting Lab: [facility] [phone] Performing Lab: [facility] [address] WBC 16.6 H 4.0-11.0 RBC 4.96 4.60-6.20 [...] H 0.0-0.1 Jul 20, 2024 05:30 AM [facility] OSMOLALITY,SERUM Specimen Type: SERUM No comment entered. Ordering Provider: SARAI GOLDEN Report Released Date/Time: Jul 20, 2024 09:47 AM Reporting Lab: [facility] [phone] Performing Lab: [facility] [phone] OSMOLALITY,SERU M 266 mosm/kg L 276-305 Jul 19, 2024 08:57 AM [facility] BASIC METABOLIC PANEL+MG Specimen Type: PLASMA No comment entered. Ordering Provider: SARAI GOLDEN Report Released Date/Time: Jul 18, 2024 10:24 PM Reporting Lab: [facility] [phone] Performing Lab: [facility] [phone] CREATININE 1.0 mg/dL 0.7-1.2 UREA NITROGEN 40 mg/dL H 8-26 GLUCOSE 104 mg/dL H 70-100 SODIUM 129 mmol/L L 136-145 POTASSIUM 3.3 mmol/L L 3.5-5.1 CHLORIDE 104 mmol/L 98-107 CO2 16 mmol/L L 22-29 CALCIUM 8.0 mg/dL L 8.4-10.2 MAGNESIUM 1.7 mg/dL 1.6-2.6 ANION GAP 9 mmol/L 5-15 .CREAT EGFR(CKD-EPI) 80 >60 Jul 19, 2024 08:57 AM [facility] CBC Specimen Type: BLOOD No comment entered. Ordering Provider: SARAI GOLDEN Report Released Date/Time: Jul 18, 2024 10:24 PM Reporting Lab: [facility] [phone] Performing Lab: [facility] [address] WBC 17.3 H 4.0-11.0 RBC 4.83 4.60-6.20 HGB 14.8 g/dL 13.5-17.9 HCT 42.6 41.0-54.0 MCV 88.2 fL 80.0-100.0 MCH 30.6 pg 27.0-33.0 MCHC 34.7 g/dL 32.0-37.5 PLT 456 H 150-400 MPV 10.8 fL 9.1-13.0 RDW 13.7 11.5-14.5 Jul 17, 2024 06:55 PM [facility] PHOSPHORUS Specimen Type: PLASMA No comment entered. Ordering Provider: SRAAI GOLDEN Report Released Date/Time: Jul 17, 2024 01:54 PM Reporting Lab: [facility] [phone] Performing Lab: [facility] [phone] PHOSPHORUS 2.9 mg/dL 2.3-4.3 Jul 17, 2024 06:55 PM [facility] BASIC METABOLIC PANEL+MG Specimen Type: PLASMA No comment entered. Ordering Provider: SARAI GOLDEN Report Released Date/Time: Jul 17, 2024 01:54 PM Reporting Lab: [facility] [phone] Performing Lab: [facility] [phone] CREATININE 1.2 mg/dL 0.7-1.2 UREA NITROGEN 62 mg/dL H 8-26 GLUCOSE 116 mg/dL H 70-100 SODIUM 128 mmol/L L 136-145 POTASSIUM 3.8 mmol/L 3.5-5.1 CHLORIDE 100 mmol/L 98-107 CO2 16 mmol/L L 22-29 CALCIUM 9.3 mg/dL 8.4-10.2 MAGNESIUM 2.1 mg/dL 1.6-2.6 ANION GAP 12 mmol/L 5-15 .CREAT EGFR(CKD-EPI) 64 >60 Jul 17, 2024 07:00 AM [facility] CBC & DIFF Specimen Type: BLOOD Comment: Manual Differential Performed Ordering Provider: SARAI GOLDEN Report Released Date/Time: Jul 16, 2024 04:52 PM Reporting Lab: [facility] [phone] Performing Lab: [facility] [address] WBC 18.9 H 4.0-11.0 RBC 5.55 4.60-6.20 [...] MORPHOLOGY PRESENT Jul 17, 2024 07:00 AM [facility] ALBUMIN Specimen Type: PLASMA No comment entered. Ordering Provider: SARAI GOLDEN Report Released Date/Time: Jul 16, 2024 12:12 PM Reporting Lab: [facility] [phone] Performing Lab: [facility] [phone] ALBUMIN 4.3 g/dL 3.5-5.0 Jul 17, 2024 07:00 AM [facility] COMPREHENSIVE METABOLIC PANEL+MG Specimen Type: PLASMA No comment entered. Ordering Provider: SARAI GOLDEN Report Released Date/Time: Jul 16, 2024 04:52 PM Reporting Lab: [facility] [phone] Performing Lab: [facility] [phone] CREATININE 1.3 mg/dL H 0.7-1.2 UREA NITROGEN [...] L >60 Jul 16, 2024 07:10 PM [facility] LACTIC ACID Specimen Type: PLASMA No comment entered. Ordering Provider: SARAI GOLDEN Report Released Date/Time: Jul 16, 2024 12:12 PM Reporting Lab: [facility] [phone] Performing Lab: [facility] [phone] LACTIC ACID 0.9 mmol/L 0.5-2.2 Jul 16, 2024 02:14 PM [facility] MRSA SURVL NARES DNA Specimen Type: NARES No comment entered. Ordering Provider: SARAI GOLDEN Report Released Date/Time: Jul 16, 2024 12:12 PM Reporting Lab: [facility] [phone] Performing Lab: [facility] [phone] MRSA SURVL NARES DNA NEGATIVE Negative Jul 16, 2024 02:10 PM [facility] LACTIC ACID Specimen Type: PLASMA No comment entered. Ordering Provider: SARAI GOLDEN Report Released Date/Time: Jul 16, 2024 12:12 PM Reporting Lab: [facility] [phone] Performing Lab: [facility] [address] LACTIC ACID 0.9 mmol/L 0.5-2.2 Jul 16, 2024 02:08 PM [facility] COMPREHENSIVE METABOLIC PANEL+MG Specimen Type: PLASMA No comment entered. Ordering Provider: SARAI GOLDEN Report Released Date/Time: Jul 16, 2024 12:12 PM Reporting Lab: [facility] [phone] Performing Lab: [facility] [phone] CREATININE 2.0 mg/dL H 0.7-1.2 UREA NITROGEN [...] L >60 Jul 16, 2024 02:08 PM [facility] CBC & DIFF Specimen Type: BLOOD Comment: Manual Differential Performed Ordering Provider: SARAI GOLDEN Report Released Date/Time: Jul 16, 2024 12:12 PM Reporting Lab: [facility] [phone] Performing Lab: [facility] [address] WBC 19.7 H 4.0-11.0 RBC 5.39 4.60-6.20 [...] MORPHOLOGY PRESENT Jul 10, 2024 07:16 AM [facility] PHOSPHORUS Specimen Type: PLASMA No comment entered. Ordering Provider: JUANCARLOS ECHOLS S Report Released Date/Time: Jul 09, 2024 12:23 PM Reporting Lab: [facility] [phone] Performing Lab: [facility] [phone] PHOSPHORUS 3.0 mg/dL 2.3-4.3 Jul 10, 2024 07:16 AM [facility] BASIC METABOLIC PANEL+MG Specimen Type: PLASMA No comment entered. Ordering Provider: JUANCARLOS ECHOLS S Report Released Date/Time: Jul 09, 2024 12:23 PM Reporting Lab: [facility] [phone] Performing Lab: [facility] [phone] CREATININE 0.7 mg/dL 0.7-1.2 UREA NITROGEN 27 mg/dL H 8-26 GLUCOSE 104 mg/dL H 70-100 SODIUM 133 mmol/L L 136-145 POTASSIUM 4.3 mmol/L 3.5-5.1 CHLORIDE 102 mmol/L 98-107 CO2 19 mmol/L L 22-29 CALCIUM 10.1 mg/dL 8.4-10.2 MAGNESIUM 1.9 mg/dL 1.6-2.6 ANION GAP 12 mmol/L 5-15 .CREAT EGFR(CKD-EPI) >90 >60 Jul 10, 2024 07:15 AM [facility] CBC Specimen Type: BLOOD No comment entered. Ordering Provider: JUANCARLOS ECHOLS Report Released Date/Time: Jul 09, 2024 12:23 PM Reporting Lab: [facility] [phone] Performing Lab: [facility] [phone] WBC 18.8 H 4.0-11.0 RBC 5.08 4.60-6.20 HGB 15.9 g/dL 13.5-17.9 HCT 46.8 41.0-54.0 MCV 92.1 fL 80.0-100.0 MCH 31.3 pg 27.0-33.0 MCHC 34.0 g/dL 32.0-37.5 PLT 479 H 150-400 MPV 10.2 fL 9.1-13.0 RDW 13.7 11.5-14.5 Jul 09, 2024 07:08 AM [facility] CBC Specimen Type: BLOOD No comment entered. Ordering Provider: QUYNH WEISS Report Released Date/Time: Jul 08, 2024 06:18 PM Reporting Lab: [facility] [phone] Performing Lab: [facility] [address] WBC 15.3 H 4.0-11.0 RBC 4.91 4.60-6.20 HGB 15.1 g/dL 13.5-17.9 HCT 45.7 41.0-54.0 MCV 93.1 fL 80.0-100.0 MCH 30.8 pg 27.0-33.0 MCHC 33.0 g/dL 32.0-37.5 PLT 443 H 150-400 MPV 10.0 fL 9.1-13.0 RDW 13.5 11.5-14.5 Jul 08, 2024 10:50 AM [facility] URINALYSIS Specimen Type: URINE No comment entered. Ordering Provider: KATELYNN PERSON Report Released Date/Time: Jul 08, 2024 08:41 AM Reporting Lab: [facility] [phone] Performing Lab: [facility] [phone] URINE COLOR YELLOW SPECIFIC GRAVITY >1.050 H [...] NEGATIVE NEGATIVE Jul 08, 2024 09:54 AM [facility] CBC Specimen Type: BLOOD Comment: Specimen received in Lab at: [id number] Ordering Provider: JUANCARLOS ECHOLS Report Released Date/Time: Jul 07, 2024 04:49 PM Reporting Lab: [facility] [phone] Performing Lab: [facility] [address] WBC 17.5 H 4.0-11.0 RBC 4.88 4.60-6.20 HGB 14.9 g/dL 13.5-17.9 HCT 45.7 41.0-54.0 MCV 93.6 fL 80.0-100.0 MCH 30.5 pg 27.0-33.0 MCHC 32.6 g/dL 32.0-37.5 PLT 472 H 150-400 MPV 10.2 fL 9.1-13.0 RDW 13.7 11.5-14.5 Jul 08, 2024 09:54 AM [facility] PHOSPHORUS Specimen Type: PLASMA Comment: Specimen received in Lab at: [id number] Ordering Provider: JUANCARLOS ECHOLS Report Released Date/Time: Jul 07, 2024 04:49 PM Reporting Lab: [facility] [phone] Performing Lab: [facility] [phone] PHOSPHORUS 2.6 mg/dL 2.3-4.3 Jul 08, 2024 09:54 AM [facility] BASIC METABOLIC PANEL+MG Specimen Type: PLASMA Comment: Specimen received in Lab at: 0952 Ordering Provider: JUANCARLOS ECHOLS Report Released Date/Time: Jul 07, 2024 04:49 PM Reporting Lab: [facility] [phone] Performing Lab: [facility] [phone] CREATININE 0.9 mg/dL 0.7-1.2 UREA NITROGEN 26 mg/dL 8-26 GLUCOSE 128 mg/dL H 70-100 SODIUM 134 mmol/L L 136-145 POTASSIUM 3.4 mmol/L L 3.5-5.1 CHLORIDE 100 mmol/L 98-107 CO2 24 mmol/L 22-29 CALCIUM 9.8 mg/dL 8.4-10.2 MAGNESIUM 1.8 mg/dL 1.6-2.6 ANION GAP 10 mmol/L 5-15 .CREAT EGFR(CKD-EPI) >90 >60 Jul 07, 2024 02:00 PM [facility] C DIFF PANEL Specimen Type: FECES No comment entered. Ordering Provider: JEVON ZAZUETA Report Released Date/Time: Jul 07, 2024 12:26 PM Reporting Lab: [facility] [address] Performing Lab: [facility] [phone] C DIFF TOX B GENE PCR NEGATIVE Negative Jul 07, 2024 07:41 AM [facility] PHOSPHORUS Specimen Type: PLASMA No comment entered. Ordering Provider: JEVON ZAZUETA Report Released Date/Time: Jul 06, 2024 03:44 PM Reporting Lab: [facility] [phone] Performing Lab: [facility] [phone] PHOSPHORUS 3.1 mg/dL 2.3-4.3 Jul 07, 2024 07:41 AM [facility] BASIC METABOLIC PANEL+MG Specimen Type: PLASMA No comment entered. Ordering Provider: JEVON ZAZUETA Report Released Date/Time: Jul 06, 2024 03:44 PM Reporting Lab: [facility] [phone] Performing Lab: [facility] [phone] CREATININE 0.9 mg/dL 0.7-1.2 UREA NITROGEN 20 mg/dL 8-26 GLUCOSE 157 mg/dL H 70-100 SODIUM 136 mmol/L 136-145 POTASSIUM 3.7 mmol/L 3.5-5.1 CHLORIDE 102 mmol/L 98-107 CO2 21 mmol/L L 22-29 CALCIUM 9.8 mg/dL 8.4-10.2 MAGNESIUM 1.9 mg/dL 1.6-2.6 ANION GAP 13 mmol/L 5-15 .CREAT EGFR(CKD-EPI) >90 >60 Jul 07, 2024 07:40 AM [facility] CBC Specimen Type: BLOOD No comment entered. Ordering Provider: JEVON ZAZUETA Report Released Date/Time: Jul 06, 2024 03:44 PM Reporting Lab: [facility] [phone] Performing Lab: [facility] [address] WBC 21.2 H 4.0-11.0 RBC 5.09 4.60-6.20 HGB 15.9 g/dL 13.5-17.9 HCT 48.3 41.0-54.0 MCV 94.9 fL 80.0-100.0 MCH 31.2 pg 27.0-33.0 MCHC 32.9 g/dL 32.0-37.5 PLT 500 H 150-400 MPV 10.3 fL 9.1-13.0 RDW 13.6 11.5-14.5 Jul 06, 2024 07:21 AM [facility] CBC Specimen Type: BLOOD No comment entered. Ordering Provider: JEVON ZAZUETA Report Released Date/Time: Jul 05, 2024 01:22 PM Reporting Lab: [facility] [phone] Performing Lab: [facility] [address] WBC 18.0 H 4.0-11.0 RBC 4.83 4.60-6.20 HGB 14.6 g/dL 13.5-17.9 HCT 45.5 41.0-54.0 MCV 94.2 fL 80.0-100.0 MCH 30.2 pg 27.0-33.0 MCHC 32.1 g/dL 32.0-37.5 PLT 368 150-400 MPV 10.4 fL 9.1-13.0 RDW 13.6 11.5-14.5 Jul 06, 2024 07:21 AM [facility] PHOSPHORUS Specimen Type: PLASMA No comment entered. Ordering Provider: JEVON ZAZUETA Report Released Date/Time: Jul 05, 2024 01:22 PM Reporting Lab: [facility] [phone] Performing Lab: [facility] [phone] PHOSPHORUS 3.6 mg/dL 2.3-4.3 Jul 06, 2024 07:21 AM [facility] BASIC METABOLIC PANEL+MG Specimen Type: PLASMA No comment entered. Ordering Provider: JEVON ZAZUETA Report Released Date/Time: Jul 05, 2024 01:22 PM Reporting Lab: [facility] [phone] Performing Lab: [facility] [address] CREATININE 0.7 mg/dL 0.7-1.2 UREA NITROGEN 12 mg/dL 8-26 GLUCOSE 108 mg/dL H 70-100 SODIUM 138 mmol/L 136-145 POTASSIUM 3.4 mmol/L L 3.5-5.1 CHLORIDE 104 mmol/L 98-107 CO2 20 mmol/L L 22-29 CALCIUM 9.3 mg/dL 8.4-10.2 MAGNESIUM 1.9 mg/dL 1.6-2.6 ANION GAP 14 mmol/L 5-15 .CREAT EGFR(CKD-EPI) >90 >60 Jul 05, 2024 07:17 AM [facility] MAGNESIUM Specimen Type: PLASMA No comment entered. Ordering Provider: JUANCARLOS ECHOLS S Report Released Date/Time: Jul 04, 2024 09:39 AM Reporting Lab: [facility] [phone] Performing Lab: [facility] [phone] MAGNESIUM 2.0 mg/dL 1.6-2.6 Jul 05, 2024 07:17 AM [facility] PHOSPHORUS Specimen Type: PLASMA No comment entered. Ordering Provider: JUANCARLOS ECHOLS S Report Released Date/Time: Jul 04, 2024 09:39 AM Reporting Lab: [facility] [phone] Performing Lab: [facility] [phone] PHOSPHORUS 2.0 mg/dL L 2.3-4.3 Jul 05, 2024 07:17 AM [facility] BASIC METABOLIC PANEL+MG Specimen Type: PLASMA No comment entered. Ordering Provider: JUANCARLOS ECHOLS S Report Released Date/Time: Jul 04, 2024 09:39 AM Reporting Lab: [facility] [phone] Performing Lab: [facility] [address] CREATININE 0.7 mg/dL 0.7-1.2 UREA NITROGEN 12 mg/dL 8-26 GLUCOSE 84 mg/dL 70-100 SODIUM 135 mmol/L L 136-145 POTASSIUM 3.8 mmol/L 3.5-5.1 CHLORIDE 104 mmol/L 98-107 CO2 24 mmol/L 22-29 CALCIUM 9.3 mg/dL 8.4-10.2 MAGNESIUM 2.0 mg/dL 1.6-2.6 ANION GAP 7 mmol/L 5-15 .CREAT EGFR(CKD-EPI) >90 >60 Jul 05, 2024 07:16 AM [facility] CBC Specimen Type: BLOOD No comment entered. Ordering Provider: JUANCARLOS ECHOLS S Report Released Date/Time: Jul 04, 2024 09:39 AM Reporting Lab: [facility] [phone] Performing Lab: [facility] [address] WBC 18.3 H 4.0-11.0 RBC 4.49 L 4.60-6.20 HGB 14.1 g/dL 13.5-17.9 HCT 43.4 41.0-54.0 MCV 96.7 fL 80.0-100.0 MCH 31.4 pg 27.0-33.0 MCHC 32.5 g/dL 32.0-37.5 PLT 317 150-400 MPV 10.0 fL 9.1-13.0 RDW 13.9 11.5-14.5 Jul 04, 2024 07:17 AM [facility] BASIC METABOLIC PANEL+MG Specimen Type: PLASMA No comment entered. Ordering Provider: GABINO CAMERON Report Released Date/Time: Jul 03, 2024 06:31 PM Reporting Lab: [facility] [address] Performing Lab: [facility] [address] CREATININE 0.7 mg/dL 0.7-1.2 UREA NITROGEN 16 mg/dL 8-26 GLUCOSE 129 mg/dL H 70-100 SODIUM 137 mmol/L 136-145 POTASSIUM 3.7 mmol/L 3.5-5.1 CHLORIDE 107 mmol/L 98-107 CO2 22 mmol/L 22-29 CALCIUM 9.0 mg/dL 8.4-10.2 MAGNESIUM 1.9 mg/dL 1.6-2.6 ANION GAP 8 mmol/L 5-15 .CREAT EGFR(CKD-EPI) >90 >60 Jul 04, 2024 07:17 AM [facility] PHOSPHORUS Specimen Type: PLASMA No comment entered. Ordering Provider: GABINO CAMERON Report Released Date/Time: Jul 03, 2024 06:31 PM Reporting Lab: [facility] [phone] Performing Lab: [facility] [address] PHOSPHORUS 2.8 mg/dL 2.3-4.3 Jul 04, 2024 07:16 AM [facility] CBC Specimen Type: BLOOD No comment entered. Ordering Provider: GABINO CAMERON Report Released Date/Time: Jul 03, 2024 06:31 PM Reporting Lab: [facility] [phone] Performing Lab: [facility] [phone] WBC 20.6 H 4.0-11.0 RBC 4.63 4.60-6.20 HGB 14.2 g/dL 13.5-17.9 HCT 43.4 41.0-54.0 MCV 93.7 fL 80.0-100.0 MCH 30.7 pg 27.0-33.0 MCHC 32.7 g/dL 32.0-37.5 PLT 329 150-400 MPV 10.4 fL 9.1-13.0 RDW 13.8 11.5-14.5 Jul 04, 2024 07:16 AM [facility] CBC & DIFF Specimen Type: BLOOD Comment: Manual Differential Performed Ordering Provider: GABINO CAMERON Report Released Date/Time: Jul 03, 2024 06:31 PM Reporting Lab: [facility] [phone] Performing Lab: [facility] [phone] WBC 20.6 H 4.0-11.0 RBC 4.63 4.60-6.20 [...] MORPHOLOGY PRESENT Jul 04, 2024 07:15 AM [facility] BNP Specimen Type: PLASMA No comment entered. Ordering Provider: GABINO CAMERON Report Released Date/Time: Jul 03, 2024 06:31 PM Reporting Lab: [facility] [phone] Performing Lab: [facility] [phone] BNP 292 pg/mL H <99 Jul 03, 2024 10:32 PM [facility] FINGERSTICK GLUCOSE Specimen Type: BLOOD Comment: Save Result Nurse Notified Ordering Provider: KATELYNN PERSON Report Released Date/Time: Jul 03, 2024 10:50 PM Reporting Lab: [facility] [phone] Performing Lab: [facility] [phone] FINGERSTICK GLUCOSE 126 mg/dL H 70-100 Jul 03, 2024 05:33 PM [facility] FINGERSTICK GLUCOSE Specimen Type: BLOOD Comment: Save Result Nurse Notified Ordering Provider: KATELYNN PERSON Report Released Date/Time: Jul 03, 2024 05:46 PM Reporting Lab: [facility] [phone] Performing Lab: [facility] [phone] FINGERSTICK GLUCOSE 141 mg/dL H 70-100 Jul 03, 2024 02:31 PM [facility] POC ABG/ELECTROLYTES Specimen Type: ARTERIAL BLOOD Comment: FIO2 = 97% Patient Temp: 36.0 C Sample Type = ARTERIAL Ordering Provider: MAZIN POON Report Released Date/Time: Jul 03, 2024 01:48 PM Reporting Lab: [facility] [phone] Performing Lab: [facility] [phone] POC PH 7.387 7.35-7.45 POC PCO2 34.4 [...] H 80.0-105.0 Jul 03, 2024 01:05 PM [facility] POC ABG/ELECTROLYTES Specimen Type: ARTERIAL BLOOD Comment: FIO2 = 53% Patient Temp: 36.2 C Sample Type = ARTERIAL Ordering Provider: MAZIN POON Report Released Date/Time: Jul 03, 2024 01:48 PM Reporting Lab: [facility] [phone] Performing Lab: [facility] [address] POC PH 7.280 L 7.35-7.45 POC PCO2 [...] mm[Hg] 80.0-105.0 Jul 03, 2024 06:15 AM [facility] URINALYSIS Specimen Type: URINE No comment entered. Ordering Provider: MARYBETH GRAVES Report Released Date/Time: Jun 12, 2024 04:01 PM Reporting Lab: [facility] [phone] Performing Lab: [facility] [phone] URINE COLOR YELLOW SPECIFIC GRAVITY 1.031 1.003-1.03 [...] 250 NEGATIVE Jul 03, 2024 06:13 AM [facility] CBC Specimen Type: BLOOD No comment entered. Ordering Provider: MARYBETH GRAVES Report Released Date/Time: Jun 12, 2024 03:59 PM Reporting Lab: [facility] [phone] Performing Lab: [facility] [phone] WBC 15.8 H 4.0-11.0 RBC 5.11 4.60-6.20 HGB 16.1 g/dL 13.5-17.9 HCT 49.1 41.0-54.0 MCV 96.1 fL 80.0-100.0 MCH 31.5 pg 27.0-33.0 MCHC 32.8 g/dL 32.0-37.5 PLT 357 150-400 MPV 9.8 fL 9.1-13.0 RDW 13.7 11.5-14.5 Jun 24, 2024 09:50 AM [facility] BASIC METABOLIC PANEL+MG Specimen Type: PLASMA Comment: Specimen received in Lab at: 0948 Ordering Provider: JEVON ZAZUETA Report Released Date/Time: Jun 23, 2024 06:07 PM Reporting Lab: [facility] [address] Performing Lab: [facility] [address] CREATININE 0.8 mg/dL 0.7-1.2 UREA NITROGEN 13 mg/dL 8-26 GLUCOSE 135 mg/dL H 70-100 SODIUM 135 mmol/L L 136-145 POTASSIUM 3.6 mmol/L 3.5-5.1 CHLORIDE 103 mmol/L 98-107 CO2 24 mmol/L 22-29 CALCIUM 9.2 mg/dL 8.4-10.2 MAGNESIUM 1.9 mg/dL 1.6-2.6 ANION GAP 8 mmol/L 5-15 .CREAT EGFR(CKD-EPI) >90 >60 Jun 24, 2024 09:50 AM [facility] CBC Specimen Type: BLOOD Comment: Specimen received in Lab at: 0948 Ordering Provider: JEVON ZAZUETA Report Released Date/Time: Jun 23, 2024 06:07 PM Reporting Lab: [facility] [address] Performing Lab: [facility] [address] WBC 15.5 H 4.0-11.0 RBC 4.93 4.60-6.20 HGB 15.2 g/dL 13.5-17.9 HCT 46.5 41.0-54.0 MCV 94.3 fL 80.0-100.0 MCH 30.8 pg 27.0-33.0 MCHC 32.7 g/dL 32.0-37.5 PLT 223 150-400 MPV 11.4 fL 9.1-13.0 RDW 13.9 11.5-14.5 Jun 23, 2024 07:52 AM [facility] COMPREHENSIVE METABOLIC PANEL+MG Specimen Type: PLASMA No comment entered. Ordering Provider: JEVON ZAZUETA Report Released Date/Time: Jun 22, 2024 05:51 PM Reporting Lab: [facility] [address] Performing Lab: [facility] [address] CREATININE 0.7 mg/dL 0.7-1.2 UREA NITROGEN 16 [...] >90 >60 Jun 23, 2024 07:52 AM [facility] CBC & DIFF Specimen Type: BLOOD Comment: Automated Differential Performed Ordering Provider: JEVON ZAZUETA Report Released Date/Time: Jun 22, 2024 05:51 PM Reporting Lab: [facility] [address] Performing Lab: [facility] [address] WBC 14.9 H 4.0-11.0 RBC 5.09 4.60-6.20 [...] 0.1 0.0-0.1 Jun 22, 2024 06:10 PM [facility] CBC Specimen Type: BLOOD No comment entered. Ordering Provider: JEVON ZAZUETA Report Released Date/Time: Jun 22, 2024 05:51 PM Reporting Lab: [facility] [address] Performing Lab: [facility] [address] WBC 16.9 H 4.0-11.0 RBC 5.28 4.60-6.20 HGB 16.9 g/dL 13.5-17.9 HCT 50.4 41.0-54.0 MCV 95.5 fL 80.0-100.0 MCH 32.0 pg 27.0-33.0 MCHC 33.5 g/dL 32.0-37.5 PLT 223 150-400 MPV 10.9 fL 9.1-13.0 RDW 14.0 11.5-14.5 Jun 22, 2024 06:10 PM [facility] COMPREHENSIVE METABOLIC PANEL+MG Specimen Type: PLASMA No comment entered. Ordering Provider: JEVON ZAZUETA Report Released Date/Time: Jun 22, 2024 05:51 PM Reporting Lab: [facility] [address] Performing Lab: [facility] [address] CREATININE 0.7 mg/dL 0.7-1.2 UREA NITROGEN 17 [...] >90 >60 Jun 21, 2024 06:48 PM [facility] URINALYSIS Specimen Type: URINE No comment entered. Ordering Provider: DELIA MARTINEZ Report Released Date/Time: Jun 21, 2024 05:45 PM Reporting Lab: [facility] [address] Performing Lab: [facility] [address] URINE COLOR YELLOW SPECIFIC GRAVITY 1.041 H [...] 500 NEGATIVE Jun 21, 2024 05:34 PM [facility] POC CREATININE Specimen Type: BLOOD No comment entered. Ordering Provider: DELIA MARTINEZ Report Released Date/Time: Jun 21, 2024 06:07 PM Reporting Lab: [facility] [address] Performing Lab: [facility] [address] POC CREATININE 1.1 mg/dL 0.6-1.3 Jun 21, 2024 05:30 PM [facility] POC ABG/LACTATE Specimen Type: VENOUS BLOOD No comment entered. Ordering Provider: DELIA MARTINEZ Report Released Date/Time: Jun 21, 2024 06:07 PM Reporting Lab: [facility] [address] Performing Lab: [facility] [address] POC PH 7.470 H 7.31-7.41 POC PCO2 31.2 mm[Hg] L 41.00-51 .0 0 POC PO2 46 mm[Hg] H 35.0-40.0 POC TCO2 24 mmol/L 24.0-29.0 POC HCO3 22.7 mmol/L L 23.0-28.0 POC BE ECT -1 mmol/L POC SO2 85 H 70-75 POC LACTATE 1.85 mmol/L 0.90-1.70 Jun 21, 2024 05:24 PM [facility] PROTHROMBIN TIME/INR Specimen Type: PLASMA No comment entered. Ordering Provider: DELIA MARTINEZ Report Released Date/Time: Jun 21, 2024 05:30 PM Reporting Lab: [facility] [address] Performing Lab: [facility] [address] .INR 1.2 H 0.8-1.1 .PT 13.9 s H 9.4-12.5 Jun 21, 2024 05:24 PM [facility] LIPASE Specimen Type: PLASMA No comment entered. Ordering Provider: DELIA MARTINEZ Report Released Date/Time: Jun 21, 2024 05:30 PM Reporting Lab: [facility] [address] Performing Lab: [facility] [address] LIPASE 32 U/L <60 Jun 21, 2024 05:24 PM [facility] EXTRA GOLD GEL TUBE Specimen Type: SERUM No comment entered. Ordering Provider: DELIA MARTINEZ Report Released Date/Time: Jun 21, 2024 05:41 PM Reporting Lab: [facility] [address] Performing Lab: [facility] [address] EXTRA GOLD GEL TUBE RECEIVED Jun 21, 2024 05:24 PM [facility] COMPREHENSIVE METABOLIC PANEL+MG Specimen Type: PLASMA No comment entered. Ordering Provider: DELIA MARTINEZ Report Released Date/Time: Jun 21, 2024 05:30 PM Reporting Lab: [facility] [address] Performing Lab: [facility] [address] CREATININE 0.9 mg/dL 0.7-1.2 UREA NITROGEN 29 [...] mg/dL <0.5 Jun 21, 2024 05:24 PM [facility] CBC & DIFF Specimen Type: BLOOD Comment: Manual Differential Performed Ordering Provider: DELIA MARTINEZ Report Released Date/Time: Jun 21, 2024 05:30 PM Reporting Lab: [facility] [address] Performing Lab: [facility] [address] WBC 21.3 H 4.0-11.0 RBC 5.48 4.60-6.20 [...] Jul 16, 2024 12:17 PM 0 [facility] OL[facility] Social History: Smoking Status [...] 15, 2024 08:30 AM VA-TOBACCO FORMER USER [facility] Tobacco Use History This section includes a history of the smoking, or tobacco-related health factors, that were collected on or before the date of the Encounter. The data comes from the [place] facility where the Encounter took place. Date/Time Smoking Status/Tobacco Use Comment F acility May 15, 2024 08:30 AM VA-TOBACCO QUIT 15 YRS OR MORE [facility] May 06, 2023 11:30 AM VA-TOBACCO FORMER USER [facility] May 06, 2023 11:30 AM VA-TOBACCO QUIT 15 YRS OR MORE [facility] Jun 04, 2022 09:00 AM VA-TOBACCO FORMER USER [facility] Jun 04, 2022 09:00 AM VA-TOBACCO QUIT 15 YRS OR MORE [facility] Jul 10, 2021 08:00 AM VA-TOBACCO FORMER USER [facility] Jul 10, 2021 08:00 AM VA-TOBACCO QUIT 5 TO < 15 YRS [facility] May 23, 2020 08:30 AM VA-TOBACCO FORMER USER [facility] May 23, 2020 08:30 AM VA-TOBACCO QUIT 5 TO < 15 YRS [facility] Mar 20, 2019 04:03 PM VA-TOBACCO FORMER USER [facility] Mar 20, 2019 04:03 PM VA-TOBACCO QUIT 5 TO < 15 YRS [facility] Mar 21, 2018 08:13 AM FORMER TOBACCO USER 7Y OR GREATE R [facility] Feb 24, 2017 09:24 AM FORMER TOBACCO USER 7Y OR GREATE R [facility] January 07, 2016 08:01 AM FORMER TOBACCO USE >1Y <7Y [facility] Feb 03, 2015 07:58 AM FORMER TOBACCO USE <1Y [facility] Feb 26, 2014 08:41 AM CURRENT TOBACCO USER [facility] May 13, 2011 01:45 PM CURRENT TOBACCO USER [facility] Advance Directives: All historical and [...] 06:15 PM CHEST 1 VIEW: FLACA WEAVER [id number] -1950 M Exm Date: JUL 18, 2024@18:15 Req Phys: IVAN GOLDEN Pat Loc: 3ES/07-18-2024@19:00 Img Loc: MAIN X-RAY Service: PRIMARY [place] [address] (Case [id number] COMPLETE) CHEST 1 VIEW (RAD Detailed) CPT:55049 Proc Modifiers : PORTABLE EXAM Reason for Study: SOB Clinical History: [place] IS NOT under investigation for COVID-19 or is COVID-19 negative 73 yo with SOB Responsible provider name and phone number to notify for critical findings if other than user placing the order and pager listed below: User placing orders pager: [phone] LAST CREATININE 1.2 (07/17/24) Report Status: Verified Date Reported: JUL 18, 2024 Date Verified: JUL 18, 2024 Butter Production Supervisor E-Sig:/ES/CARLOS A CUNNINGHAM DO Report: EXAMINATION: CHEST 1 VIEW Reason for Study: SOB [place] IS NOT under investigation for COVID-19 or is COVID-19 negative 73 yo with SOB Responsible provider name and phone number to notify for critical findings if other than user placing the order and pager listed below: User placing orders pager: [phone] LAST CREATININE 1.2 (07/17/24) SOB TECHNIQUE: Single [...] Interpreting Staff: CARLOS A CUNNINGHAM DO, RADIOLOGIST (Butter Production Supervisor) /KMB CARLOS A CUNNINGHAM [facility] Jul 16, 2024 07:[address] [facility] [address] ABDOMEN/PELVIS: FLACA WEAVER [id number] -1950 M Exm Date: JUL 16, 2024@07:49 Req Phys: PREMA BENITEZ Loc: 07-17-2024@09:02 Img Loc: OUTSOURCE CT Service: Unknown (Case [id number] COMPLETE) NON [place] CT ABDOMEN/PELVIS (CT Detailed) CPT:88090 Reason for Study: outside study Clinical History: [...] Diagnostic Code: VERIFIED BY: / *ELECTRONICALLY FILED* [facility] Jul 13, 2024 09:[address] [facility] [address] ABDOMEN/PELVIS: FLACA WEAVER [id number] -1950 M Exm Date: JUL 13, 2024@09:41 Req Phys: PREMA BENITEZ Pat Loc: 07-17-2024@09:08 Img Loc: OUTSOURCE CT Service: Unknown (Case [id number] COMPLETE) NON [place] ABDOMEN/PELVIS (CT Detailed) CPT:33690 Reason for Study: outside study Clinical History: [...] Diagnostic Code: VERIFIED BY: / *ELECTRONICALLY FILED* [facility] Jul 08, 2024 10:09 AM CHEST 2 VIEWS PA AND LAT: FLACA WEAVER [id number] -1950 M Exm Date: JUL 08, 2024@10:09 Req Phys: KATELYNN PERSON Pat Loc: [facility]/07-08-2024@11:49 Img Loc: MAIN X-RAY Service: [place] [address] (Case 24 COMPLETE) CHEST 2 VIEWS PA AND LAT (RAD Detailed) CPT:89293 Reason for Study: Uptrending WBC, POD 5 [...] 08, 2024 Date Verified: JUL 08, 2024 Butter Production Supervisor E-Sig: Report: CHEST 2 VIEWS PA [...] cardiopulmonary disease. READING PHYSICIAN: Sarbjit Vaughn M.D. -[phone] 07/08/2024 12:46 [facility] [phone] (For Medical Practitioner Use Only) Attention Patients / Veterans: If you have questions or concerns about these test results, please contact your ordering provider or primary care team. Primary Interpreting Staff: RADIOLOGY,OUTSIDE SERVICE, Staff Physician / RADIOLOGY,OUTSIDE SERVICE [facility] Jul 08, 2024 10:[address] (AP) ABDOMEN/PELVIS W CONTRAST: FLACA WEAVER [id number] -1950 M Exm Date: JUL 08, 2024@10:00 Req Phys: KATELYNN PERSON Loc: 2KG/07-08-2024@12:07 Img Loc: CT IMAGING Service: [place] [address] (Case 22 COMPLETE) CT (AP) ABDOMEN/PELVIS W CONTRAST(CT Detailed) CPT:80297 Contrast Media : Non-ionic Iodinated Reason for [...] PLASMA .CREAT EGFR(CKD-E >90 Ref: >=60 Allergies: ([place] only) TERAZOSIN (Mar 13, 2015) Report Status: Verified Date Reported: JUL 08, 2024 Date Verified: JUL 08, 2024 Butter Production Supervisor E-Sig: Report: CT (AP) ABDOMEN/PELVIS W [...] as noted above READING PHYSICIAN: Celestino Blanc -[phone] 07/08/2024 13:04 EST [facility] [phone] (For Medical Practitioner Use Only) Attention Patients / Veterans: If you have questions or concerns about these test results, please contact your ordering provider or primary care team. Primary Interpreting Staff: RADIOLOGY,OUTSIDE SERVICE, Staff Physician / RADIOLOGY,OUTSIDE SERVICE [facility] Jun 22, 2024 11:49 AM ABSCESS DRAIN PLACEMENT PERITONEAL (P): FLACA WEAVER [id number] -1950 M Exm Date: JUN 22, 2024@11:49 Req Phys: ADINAANGELA Mcfarlane Pat Loc: [facility]/06-22-2024@17:14 Img Loc: INTERVENTIONAL RADIOLOGY Service: [facility] [place], [place] [address] (Case [id number] COMPLETE) IR PERITONEAL/RETROPERITONEAL PER(ANI Detailed) CPT:69890 Reason for Study: diverticulitis with abscess (Case [id number] COMPLETE) IR MOD SEDATION 10-22 MIN (ANI Detailed) CPT:99176 Clinical History: IS NOT under investigation for COVID-19 or is COVID-19 negative 73 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 please place abscess drain. Contact number for responsible provider who can be reached for any questions or notifications of critical findings: [phone] n/a LAST CREATININE 0.9 (06/21/24) Report Status: Verified Date Reported: JUN 22, 2024 Date Verified: JUN 22, 2024 Butter Production Supervisor E-Sig:/ES/LISA CRUZ MD Report: PROCEDURES: Placement [...] Using real-time CT fluoroscopy, a 5 Welsh [employer] centesis catheter was advanced into the collection [...] Primary Interpreting Staff: LISA CRUZ MD, RADIOLOGIST (Butter Production Supervisor) /JRLISA [facility] Jun 22, 2024 11:[address] NEEDLE PLACEMENT (P): FLACA WEAVER [id number] -1950 M Exm Date: JUN 22, 2024@11:48 Req Phys: ANGELA HOLDEN [facility] Loc: [facility]/06-22-2024@17:14 Img Loc: CT IMAGING Service: [place] [address] (Case [id number] COMPLETE) CT SCAN FOR NEEDLE PLACEMENT (CT Detailed) CPT:32887 Reason for Study: l pelvic abscess drain Clinical History: Report Status: Verified Date Reported: JUN 22, 2024 Date Verified: JUN 22, 2024 Butter Production Supervisor E-Sig:/ES/LISA CRUZ MD Report: PROCEDURES: Placement [...] Using real-time CT fluoroscopy, a 5 Welsh MOV[employer]esis catheter was advanced into the collection in [...] Primary Interpreting Staff: LISA CRUZ MD, RADIOLOGIST (Butter Production Supervisor) /JRT LISA CRUZ [facility] Jun 21, 2024 06:[address] (AP) ABDOMEN/PELVIS (P): FLACA WEAVER [id number] -1950 M Ex Date: JUN 21, 2024@18:09 Req Phys: DELIA MARTINEZ Loc: [facility] (Re Img Loc: CT IMAGING Service: [place] [address] (Case [id number] COMPLETE) CT (AP) ABDOMEN/PELVIS W CONTRAST(CT Detailed) CPT:34829 Contrast Media : Non-ionic Iodinated Reason for [...] PLASMA .CREAT EGFR(CKD-E >90 Ref: >=60 Allergies: ([place] only) TERAZOSIN (Mar 13, 2015) Defer [...] 21, 2024 Date Verified: JUN 21, 2024 Butter Production Supervisor E-Sig:/ES/CARLOS A CUNNINGHAM DO Report: EXAMINATION: CT [...] Interpreting Staff: CARLOS A CUNNINGHAM DO, RADIOLOGIST (Butter Production Supervisor) /CARLOS A ROWELL [facility] Pathology Reports: +/- 30 days [...] PM LR MICROBIOLOGY RE PORT: Reporting Lab: [facility] [CLIA# [id number]] [place] [address] Accession [UID]: [id number] [[id number]] Received: Jul 16, 2024@14:41 Collection sample: BLOOD Collection date: Jul 16, 2024 14:07 Provider: IVAN GOLDEN Comment on specimen: Manish [place], RECEIVED 2 BLOOD CULTURE BOTTLES Test(s) ordered: CULTURE & SUSCEPTIBILITY...... completed: Jul 22, 2024 * BACTERIOLOGY FINAL REPORT => Jul 22, 2024 13:39 TECH CODE: [id number] CULTURE RESULTS: NO GROWTH 5 DAYS Bacteriology Remark(s): THIS REPORT IS FINAL =--=--=--=--=--=--=--=--=--= --=--=--=--=--=--=--=--=--=- -=--=--=--=--=--=--=-- Performing Laboratory: Bacteriology Report Performed By: [facility] [CLIA# [id number]] [place] [address] [facility] Jul 16, 2024 01:54 PM LR MICROBIOLOGY RE PORT: Reporting Lab: [facility] [CLIA# [id number]] [place] [address] Accession [UID]: [id number] [[id number]] Received: Jul 16, 2024@14:41 Collection sample: BLOOD Collection date: Jul 16, 2024 13:54 Provider: IVAN GOLDEN Comment on specimen: L AC, RECEIVED 2 BLOOD CULTURE BOTTLES Test(s) ordered: CULTURE & SUSCEPTIBILITY...... completed: Jul 22, 2024 * BACTERIOLOGY FINAL REPORT => Jul 22, 2024 13:39 TECH CODE: [id number] CULTURE RESULTS: NO GROWTH 5 DAYS Bacteriology Remark(s): THIS REPORT IS FINAL =--=--=--=--=--=--=--=--=--= --=--=--=--=--=--=--=--=--=- -=--=--=--=--=--=--=-- Performing Laboratory: Bacteriology Report Performed By: [facility] [CLIA# [id number]] [place] [address] [facility] Jul 03, 2024 05:59 AM LR SURGICAL PATHOL OGY REPORT: LOCAL TITLE: LR SURGICAL PATHOLOGY REPORT STANDARD TITLE: PATHOLOGY REPORT DATE OF NOTE: JUL 06, 2024@10:40:48 ENTRY DATE: JUL 06, 2024@10:40:48 AUTHOR: EDUARDO PALOMARES EXP COSIGNER: URGENCY: STATUS: COMPLETED $APHDR Reporting Lab: [facility] [CLIA# [id number]] [place] [address] - - - - - - - [...] - PATHOLOGY REPORT Accession No. [id number] - - - - - - - [...] - PATHOLOGY REPORT Accession No. [id number] - - - - - - - [...] Second circumferential surgical margin, en face; E-F: Corrective Therapy Aide Teacher diverticula; G: Corrective Therapy Aide Teacher section of mesentery; H: Random sales representative public utilities section of additional adipose tissue fragment. SS. [...] One colonic tissue ring, bisected transversely. [facility]. ([facility]: Microscopic examination performed. DIAGNOSIS: 1. Colon, sigmoid, sigmoidectomy-- - Diverticulosis with perforation and focal abscess formation 2. Colon, anastomotic rings, excision-- - Viable colonic mucosa without diagnostic abnormality /es/ EDUARDO PALOMARES MD STAFF PATHOLOGIST Signed Jul 06, 2024@10:40 Performing Laboratory: Surgical Pathology Report Performed By: [facility] [CLIA# [id number]] [place] [address] $FTR - - - - - - [...] - - - - - - MEGFLACA LOBO STANDARD FORM 515 ID:[id number] SEX:M :1950 AGE: 73 LOC:55205 ADM:Jun DX:DIVERTICULITIS PCP: Prema Benitez /alexi/ EDUARDO PALOMARES MD STAFF PATHOLOGIST Signed: 07/06/2024 10:40 EDUARDO PALOMARES [facility] Jun 22, 2024 01:15 PM LR MICROBIOLOGY RE PORT: Reporting Lab: [facility] [CLIA# [id number]] [place] [address] Accession [UID]: [id number] [[id number]] Received: Jun 22, 2024@13:38 Collection sample: FLUID Collection date: Jun 22, 2024 13:15 Provider: ANGELA HOLDEN Comment on specimen: LLQ ABSCESS, RECEIVED IN ANAEROBIC TRANSPORT VIAL Test(s) ordered: GRAM STAIN.................... completed: Jun 22, 2024 15:03 CULTURE & SUSCEPTIBILITY...... completed: Jun 25, 2024 * BACTERIOLOGY FINAL REPORT => Jun 25, 2024 10:56 TECH CODE: [id number] GRAM STAIN: DIRECT SMEAR of specimen before [...] -=--=--=--=--=--=--=-- Performing Laboratory: Bacteriology Report Performed By: [facility] [CLIA# [id number]] [place] [address] [facility] Jun 22, 2024 01:15 PM LR MICROBIOLOGY RE PORT: Reporting Lab: [facility] [CLIA# [id number]] [place] [address] Accession [UID]: [id number] [[id number]] Received: Jun 22, 2024@13:38 Collection sample: FLUID Collection date: Jun 22, 2024 13:15 Provider: ANGELA HOLDEN Comment on specimen: LLQ ABSCESS, RECEIVED IN ANAEROBIC TRANSPORT VIAL Test(s) ordered: ANAEROBIC CULTURE............. completed: Jun 28, 2024 * BACTERIOLOGY FINAL REPORT => Jun 28, 2024 10:08 TECH CODE: [id number] CULTURE RESULTS: HEAVY GROWTH MIXED ANAEROBES Comment: including the followin+ Bacteroides fragilis 4+ Bacteroides vulgatus 4+ Clostridium innocuum Beta-lactamase negative 4+ Bacteroides caccae 4+ Parvimonas micra 4+ Bacteroides uniformis 4+ Gemella morbillorum 4+ anaerobic small, Gram Positive Rods 4+ Bacteroides thetaiotaomicron Standard workup is now complete. Bacteriology Remark(s): THIS REPORT IS FINAL =--=--=--=--=--=--=--=--=--= --=--=--=--=--=--=--=--=--=- -=--=--=--=--=--=--=-- Performing Laboratory: Bacteriology Report Performed By: [facility] [CLIA# [id number]] [place] [address] [facility] Jun 21, 2024 06:12 PM LR MICROBIOLOGY RE PORT: Reporting Lab: [facility] [IA# [id number]] [place] [address] Accession [UID]: [id number] [[id number]] Received: Jun 21, 2024@18:12 Collection sample: BLOOD [...] -=--=--=--=--=--=--=-- Performing Laboratory: Bacteriology Report Performed By: [facility] [CLIA# [id number]] [place] [address] [facility] Jun 21, 2024 06:11 PM LR MICROBIOLOGY RE PORT: Reporting Lab: [facility] [CLIA# [id number]] [place] [address] Accession [UID]: [id number] [[id number]] Received: Jun 21, 2024@18:11 Collection sample: BLOOD [...] -=--=--=--=--=--=--=-- Performing Laboratory: Bacteriology Report Performed By: [facility] [CLIA# [id number]] [place] [address] [facility] Encounter Notes: All associated encounter notes This section contains the clinical notes associated to the Encounter. Date/Time Encounter Note(s) Provider Source Jul 21, 2024 02:34 PM NURSING DISCHARGE NOTE: LOCAL TITLE: [facility] NURSING DISCHARGE SUMMARY STANDARD TITLE: NURSING DISCHARGE NOTE DATE OF NOTE: JUL 21, 2024@14:34 ENTRY DATE: JUL 21, 2024@14:35:09 AUTHOR: MARTI JONES COSIGNER: URGENCY: STATUS: COMPLETED Nursing Discharge Summary Home Discharge date and time: Jun@14:35 Accompanied by: Family Wheelchair Transportation: Own car Verify that the Contact Name and Phone Number are correct: FLACA WEAVER Condition: Alert, Oriented Skin Condition: Not Intact(describe): midline incision with jeannine and ileostomy Incision: Yes, describe: midline incision with jeannine, no drainage noted. Did not allow full skin inspection Education/Teach Back Patient and/or Caregiver was given [...] readable or re-constructible to any degree. /alexi/ MARTI JONES RN STAFF NURSE Signed: 07/21/2024 14:36 MARTI JONES [facility] Jul 21, 2024 02:30 PM DISCHARGE SUMMARY: LOCAL TITLE: Discharge Summary STANDARD TITLE: DISCHARGE SUMMARY DICT DATE: JUL 22, 2024@15:04 ENTRY DATE: JUL 22, 2024@15:04:16 DICTATED BY: IVAN GOLDEN ATTENDING: THEODORE AREVALO URGENCY: routine STATUS: COMPLETED Discharge Summary DRAFT UNTIL SIGNED BY ATTENDING Admission Date: Jun Discharge Date: Jun Discharge Destination: Home PRIMARY DIAGNOSIS: Sepsis of unknown source, suspect abdominal source SECONDARY DIAGNOSES: # Lactic Acidosis, resolved # Non anion gap metabolic acidosis # Abdominal pain, improving # Diverticulitis s/p Sigmoid colectomy with diverting loop colostomy # Colovesicular fistula # Incisional hernia # Stool from rectum, resolved # High Output Ileostomy # MIGUE, on CKD, resolved # Hyponatremia # [place] # Concern for refeeding # HTN # HFrEF # HLD # CAD # JUANJOSE OPERATIVE/INVASIVE PROCEDURES: - None CONSULTS: - Colorectal Surgery BRIEF SUMMARY OF H&P: Mr. Weaver is a 73yoM with a PMH of CAD with PCI 2016, AAA, HLD, HTN, CKD, HF? EF, JUANJOSE (not using CPAP), BL GAIL aneurysms, and chronic diverticulitis with colovesicular fistula and abscess who was admitted for nausea, liquid stools, and abdominal pain s/p sigmoid colectomy with diverting loop colostomy. Mr. Weaver reports chronic nausea, especially in the past 2 weeks. He also has lower back pain, feeling sore from laying down too long, and has a history of 3 back surgeries. He also reports constant dull abdominal pain in the LLQ and LRQ. He is having a lot of ostomy output very quickly, and has had the bag changed twice now. He was told to take Metamucil post-op but felt that has made him have too much stool output. He has had low appetite and reports 65-70lb weight loss. He has had normal-coloured, but decreased urine output due to decreased fluid intake. States he may have a surgery to connect his small to large bowel on Sep 02, 2024. Patient expresses considerable frustration with his medical care and condition for the past 10 years. Mr. Weaver sometimes has SOB, lightheadedness, and his chest feels tight. These episodes occur with light movement such as walking a few feet, last for a few minutes, and cause him to have to sit to catch his breath. Denies wheezing, SOB at this time. Occasionally, he has subjective fevers, chills, and sweats. Smoked 1.5 ppd from when he was a teenager, quit 10-15 years ago. Used to be in the [employer] for 2 years in [place]. 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 HOSPITAL COURSE BY PROBLEM: # Severe Sepsis, Resolved # Lactic Acidosis, resolved # Non anion gap metabolic acidosis Presented to [facility] ED found to be tachcardic, hypotensive with systolics in 70s, leukocytosis to 23k. Empriically started on vanc and Zosyn, fluid resucitated prior to transfer to [place]. Still with leukocytosis on day of discharge but downtrending. Pressures stable outside of mild hypotension associated with restarting home BP meds, which were then held switched to orals on 07/19 (outlined below), planning for 1 week course of antibiotics. Flagyl stopped due to concerns about GI upset. Abx: Vanc (07/16-07/18) Zosyn (07/16-07/19) Cefpodoxime (07/19- plan for three additional days at time of discharge to complete one full week) Metronidazole (07/19- 07/20) # Abdominal pain, improving # Diverticulitis s/p Sigmoid colectomy with diverting loop colostomy # Colovesicular fistula # Incisional hernia # Stool from rectum, resolved # High Output Ileostomy Patient has chronic diverticulitis with multiple hospitalizations. Recent extensive surgery for divertculitis with sigmoid colectomy with diverting loop colostomy in Fall of 2023. Low appetite and 65-70 lb weight loss. Liquid stools with negative C. diff. Colorectal consulted, who evaluated and recommended no acute intervention surgically. Discharged with minimal oxycodone # MIGUE, on CKD, resolved Initial Creatinine of 2.0, BUN 88 on presentation, ratio > 20:1 indicative of prerenal azotemia, which is fitting in setting of sepsis and also poor PO intake. Improved with fluid resucitation. # Hyponatremia Presented with Na 128, persistent on 07/17. Likely hypovolemic given sepsis and poor PO intake on admission. S/p 2L fluid bolus and overnight fluids 07/16-07/17. Downtrended to a low of 121 on 07/19, urine and serum studies suggestive of hypovolemia hyponatremia. Given additional fluids, and 07/20 sodium improved to 125. Would have continued to give additional fluids on 07/22 however patient was adamant about discharging on 07/21. # [place] # Concern for refeeding Presenting with poor nutrition, recent 60+ lbs weight loss in previous monts given acute illnesses. Reported on admission of not tolerating or taking much PO for multiple days. Advanced to a regular diet without major issue and refeeding labs remained stable without intervention # HLD # CAD INDIRECT FIRE INFANTRYMAN statin and ASA resumed on 07/17 # HTN # HFrEF INDIRECT FIRE INFANTRYMAN lisinopril restarted 07/17 and INDIRECT FIRE INFANTRYMAN Spironolactone restarted 07/18 given hypertension, but then again held overnight 07/18 due to hypotension. Given fluids in response and remained normotensive after. Planned to hold INDIRECT FIRE INFANTRYMAN hypertensive meds until able to follow up in clinic after discharge EXAM AT THE TIME OF DISCHARGE: Temp: 98.2 F [36.8 C] (07/20/2024 15:30) Pulse: 58 (07/20/2024 15:30) BP: 135/74 (07/20/2024 15:30) Resp: 16 (07/20/2024 15:30) O2 sat: 98% (07/20/2024 15:30) Gen: Awake, alert, NAD CV: RRR, normal S1 and S2 without m/r/g RESP: CTAB, breathing comfortably on room air GI: Middle jeannine over abdominal incision, c/d/i. Otherwise soft, nontender, nondistended. Ostomy in place with midly formed brown stool MSK: Moving all extremities equally DISCHARGE INFORMATION: Disposition on discharge, diet, physical activity, and follow-up care orders are included in the discharge orders. MEDICATION CHANGES: See the [facility] Med Instruction/Reconciliation note for a complete medication list. FOLLOW UP: Appointment order put in to follow up on 07/30 More than 30 minutes was spent on discharge management services and coordination of care for this . Discussed with the attending physician, Dr. Arevalo. Ivan Golden MD Internal Medicine & Pediatrics PGY-2 /es/ IVAN GOLDEN [facility] MED[facility] PEDIATRICS RESIDENT Signed: 07/22/2024 16:10 /es/ THEODORE AREVALO MD, PHD STAFF PHYSICIAN - INFECTIOUS DISEASE Cosigned: 07/23/2024 19:55 IVAN GOLDEN [facility] Jul 21, 2024 01:32 PM EDUCATION DISCHARGE NOTE: LOCAL TITLE: EDUCATION NURSING DISCHARGE INSTRUCTIONS STANDARD TITLE: EDUCATION DISCHARGE NOTE DATE OF NOTE: JUL 21, 2024@13:32 ENTRY DATE: JUL 21, 2024@13:32:17 AUTHOR: LUCILA GO EXP COSIGNER: URGENCY: STATUS: COMPLETED Activity Restriction: Yes, Maintain abdominal binder, do not lift anything over 10 lbs. Diet: Regular NSAID/Aspirin Restriction (MED/Date to Resume): None Wound Condition: Clean/Dry/Healing Continue ostomy care. OK to shower. [place] to be removed by colorectal surgery on follow up. Discharge Order Discharge Date: Jun Discharged to: Home Discharge Type: Hospital Discharge Provider Completing Summary: Ivan Golden Attending Physician: Theodore Arevalo Discharge Diagnosis: Hypovolemia due to high ostomy output Discharge Condition: Fair Discharge Instructions: --Maintain good hydration with water and continue the atropine to slow down your stool output. --Complete the antibiotics with tomorrow's doses. --Use the abdominal binder --Follow up with your surgeons regarding staple removal IMPORTANT PHONE NUMBERS: IF YOU HAVE A LIFE THREATENING EMERGENCY CALL 911 If you have questions about anything related to your inpatient care at the [facility] or your future care in the [facility], call the Call Center or After Hour numbers listed below. If you receive care at another [place] facility or with a community provider, you will need to call them for questions about your future care. -Call Center Tuesday-Tuesday, 7:30-4:30 at [phone] or Toll Free -After Hours- toll-free -Outpatient Pharmacy - -Verification of Appointments for the following month - *'S CRISIS LINE NUMBER IS (TALK)* Discharge from ICU, Acute Care, Acute Rehab, or CLC C-SSRS Screening [place] Suicide Severity Rating Scale (C-SSRS) screener 1. [...] education reviewed and given on: Other diagnosis/instructions: dehydration elsiver. Patient and/or other caregiver has had an opportunity to participate in the development of the discharge plan. The patient had an opportunity to ask questions. While in the hospital you were treated for: Primary Care Team: Primary Care Team: JUANITO PACT IRIS *WH* Primary Care Provider: PREMA BENITEZ No Associate Provider Assigned. Attending Physician: THEODORE AREVALO You are being discharged to: Home Phone number you can be contacted at for the next 2 weeks: Your diet is regular Activity: Lifting: Maintain abdominal binder, do not lift anything over 10 lbs. Other: Comments: When you go home you will need: Treatments: None Supplies: Medication Patient instructed to worm picker medication in outpatient pharmacy Continuing care needs: If you receive care at [facility] you will need to call the Primary Care Call Center number at [phone]. If you receive care at another [place] facility or community provider, you will need to call them to arrange your follow up care. Future appointments: No data available A copy of these instructions has been given to: Patient IM - Immunizations ADMINISTERED Immunization Series Date Facility Reaction Info COVID-19 ([employer]), MRNA, LNP-S, * 1 10/25/2022 [place]* COVID-19 [...] Copy of PROVIDERS DISCHARGE ORDERS Discharge Order Weight Bearing Restriction: No, Bathing Restriction: No, Activity Restriction: Yes, Maintain abdominal binder, do not lift anything over 10 lbs. Diet: Regular NSAID/Aspirin Restriction (MED/Date to Resume): None Wound Condition: Clean/Dry/Healing Continue ostomy care. OK to shower. Jeannine to be removed by colorectal surgery on follow up. Oxygen Needed for Transport? No Special Transportation Needs: None Discharge Order Discharge Date: Jun Discharged to: Home Discharge Type: Hospital Discharge Provider Completing Summary: Ivan Golden Attending Physician: Theodore Arevalo Diagnosis: Hypovolemia due to high ostomy output Discharge Condition: Fair Discharge Instructions: --Maintain good hydration with water and continue the atropine to slow down your stool output. --Complete the antibiotics with tomorrow's doses. --Use the abdominal binder --Follow up with your surgeons regarding staple removal /es/ LUCILA GO RN Signed: 07/21/2024 13:59 LUCILA GO [facility] Jul 21, 2024 12:58 PM COLON & RECTAL SURGERY NOTE: LOCAL TITLE: COLON-RECTAL INPT PROGRESS NOTE STANDARD TITLE: COLON & RECTAL SURGERY NOTE DATE OF NOTE: JUL 21, 2024@12:58 ENTRY DATE: JUL 21, 2024@12:58:20 AUTHOR: NIKOLAY BEAVERSIGNER: URGENCY: STATUS: COMPLETED COLON-RECTAL INPT PROGRESS NOTE Has ADDENDA INPATIENT PROGRESS NOTE Subjective: Objective: General: Awake, Alert, Oriented X3, No apparent distress Cardio: regular rate and rhythm via radial palpation. Lungs: Non-labored breathing. On room air. Symetrical chest rise and fall. Abd: soft, nontender, nondistended. Ostomy bag with dark brown and green stool. Bulked up more from previous days. Jeannine along the midline incision. Extrem: moves all 4 extremities Neuro: A&O x 4. No focal deficits. Active Medications: Active Inpatient Medications (including Supplies): Active Inpatient Medications Status 1) ACETAMINOPHEN (INPT) ELIXIR 650MG/20.3ML PO Q6H PRN ACTIVE 2) ALBUTEROL/IPRATROPIUM SOLN,INHL 3ML INHL Q6H PRN FOR ACTIVE SHORTNESS OF BREATH 3) ASPIRIN TAB,EC 81MG PO QAM ACTIVE 4) ATORVASTATIN TAB 20MG PO QHS ACTIVE 5) ATROPINE 0.025MG/DIPHENOXYLATE 2.5MG TAB 1 TABLET PO ACTIVE QID 6) CEFPODOXIME TAB 200MG PO BID ACTIVE 7) LISINOPRIL TAB 10MG PO QAM ACTIVE 8) NALOXONE INJ,SOLN 0.4MG/1ML IV PRN For opioid ACTIVE overdose (difficult to arouse and RR<8). Call provider or SECONDARY SCHOOL TEACHER LIBRARIAN. May repeat every 2-3 min up to 3 total doses. Administer INTRAMUSCULARLY if no IV access. 9) ONDANSETRON INJ,SOLN 4MG/2ML IV Q6H PRN FOR NAUSEA ACTIVE 10) OXYCODONE TAB 5MG PO Q6H PRN FOR PAIN ACTIVE 11) PSYLLIUM (INPT) POWDER,ORAL 1 PACKET (1 TEASPOONFUL) ACTIVE PO BID 12) SALINE FLUSH INJ 10ML IV Q8H AFTER EACH USE, MINIMUM ACTIVE OF EVERY SHIFT. 13) TRAZODONE TAB 25MG PO QHS PRN For insomnia. Do not ACTIVE give after 11 p.m. Labs: - INR: INR 1.2 H PLASMA (06/21/24 17:24) - Complete Blood Count White count: WBC 16.0 H (07/21/24) Hemoglobin: HGB 15.8 (07/21/24) Hematocrit: HCT 45.5 (07/21/24) Platelets: PLT 428 H (07/21/24) - Complete Metabolic Panel SODIUM 125 L (07/21/24) POTASSIUM 4.4 (07/21/24) CHLORIDE 100 (07/21/24) CO2 17 L (07/21/24) UREA NITROGEN 31 H (07/21/24) CREATININE 0.8 (07/21/24) GLUCOSE 120 H (07/21/24) CALCIUM 9.6 (07/21/24) MAGNESIUM 1.9 (07/21/24) EGFR (04/01) 07/10/2021@0641 74 CREATININE EGFR (CKD-EPI) 07/21/2024@0530 >90 AST/SGOT 22 (07/17/24) ALT/SGPT 31 (07/17/24) ALK PHOSPHATASE 91 (07/17/24) ALBUMIN 4.3 (07/17/24) BILIRUBIN, TOTAL 0.8 (07/17/24) Imaging No imaging obtained today. Assessment/Plan: 74 y/o with PMHx CAD, HLD, HTN, CKD, HFrEF, and diverticulitis (c/b colovesicular fistula), s/p laparoscopic converted to open sigmoid colectomy, splenic flexure mobilization, diverting loop ileostomy, flex sig with bilateral ureteral stent placement with CRS & Urology on 07/03/24. Discharged on 07/10 to home. Re-admitted as a transfer from OSH for concerns for sepsis with high ileostomy output although more likely a dehydration problem. Colorectal surgery was consulted for concerns for an incisional hernia. No evidence of symptoms resulting from hernia, and no strangulation or incarceration noted. 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 Plans to manage his hernia nonoperatively with conservative interventions. - Continue fiber and loperamide after discharge to lower ileostomy output. Continue close monitoring of ileostomy output - Continue intaking appropriate amount of fluids - Continue regular diet - Abdominal binder for fascial dehiscence - Patient to be discharged today - Follow-up in the Colorectal clinic. The patient's history, findings, assessment and plan were discussed with Dr. Graves, who agrees with the plan. Nikolay Beavers MD Surgery Resident /alexi/ NIKOLAY BEAVERS Resident, Vascular Surgery Signed: 07/21/2024 13:04 07/21/2024 ADDENDUM STATUS: COMPLETED Subjective: Patient had no acute events overnight. /alexi/ NIKOLAY BEAVERS Resident, Vascular Surgery Signed: 07/21/2024 13:06 NIKOLAY BEAVERS [facility] Jul 21, 2024 07:00 AM NURSING NOTE: LOCAL TITLE: TELEMETRY AND OXIMETRY CENTRALIZED NOTE STANDARD TITLE: NURSING NOTE DATE OF NOTE: JUL 21, 2024@07:00 ENTRY DATE: JUL 21, 2024@11:23:11 AUTHOR: RAMIRO RUSSELL COSIGNER: URGENCY: STATUS: COMPLETED Telemetry (Cardiac) Monitor: Day Shift Telemetry initiation date/time: Jun@17:40. Telemetry indication: Other Cardiac History: AAA, HTN, CAD, S/P PCI Cardiac rhythm interpretation: Sinus Bradycardia with AV Dissociation HR:50 NJ Int: Varies QRS Int:.13 QT Int:.36 QTc Int:.42 Telemetry leads monitored this shift: II and V lead Alarm parameters verified this shift /es/ RAMIRO RUSSELL television news reporter Signed: 07/21/2024 11:26 RAMIRO RUSSELL [facility] Jul 20, 2024 11:06 PM NURSING NOTE: LOCAL TITLE: TELEMETRY AND OXIMETRY CENTRALIZED NOTE STANDARD TITLE: NURSING NOTE DATE OF NOTE: JUL 20, 2024@23:06 ENTRY DATE: JUL 21, 2024@04:27:42 AUTHOR: ANDI SCRUGGS EXP COSIGNER: URGENCY: STATUS: COMPLETED Telemetry (Cardiac) Monitor: Stock Digger Telemetry initiation date/time: Jun@17:40. Telemetry indication: Other Cardiac History: Severe sepsis, hyponatremia, 1*AVB (this admit); CAD w/PCI, HFrEF (HTN, AAA, JUANJOSE, mult. lung nodules) Cardiac rhythm interpretation: Sinus bradycardia w/severe 1*AVB & BBB HR:56 NJ Int:0.451 QRS Int:0.16 QT Int:0.465 QTc Int:0.448 Significant cardiac events noted this shift: Patient was in sinus rhythm / sinus w/conventional 1*AVB (0.2 to 0.225 approx.) earlier in shift. At 22:34 patient began displaying progressive NJ (which he has done previously this admission), lasting between 30 sec and 1 minute. After this, his NJ was approx. 0.45, indicating a severe 1*AVB or 2 *AVB in which this wrriter is unable to visualize the second P-wave. This lasted until just after 01:30. Subsequently, patient's NJ has been switching periodically between 0.225+/- and 0.45+/-, apparently at random. Have discussed w/RN throughout the shift, as needed. Comments: Vs. sinus bradycardia w/2*AVB(2:1 cond) - unable to identify anything indicative of 2*AVB besides unusual severity of patient's NJ- - - - Patent has, over the course of this admission, displayed junctional rhythm, sinus rhythm, sinus rhythm w/progressive NJ in s/o 1*AVB, sinus w/1*AVB, and sinus w/severe 1*AVB. At times, he has gone from junctional rhythm to severe 1*AVB in as little as 1-2 minutes. This has been reported to nursing staff previously. Telemetry leads monitored this shift: II and V lead Alarm parameters verified this shift Alarm parameters modified from default settings: 42 to 130 as directed by nursing previous shift /es/ ANDI SCRUGGS Regional Service Manager Signed: 07/21/2024 04:51 ANDI SCRUGGS [facility] Jul 20, 2024 11:02 PM NURSING INPATIENT NOTE: LOCAL TITLE: [place] NURSING PROGRESS NOTE STANDARD TITLE: NURSING INPATIENT NOTE DATE OF NOTE: JUL 20, 2024@23:02 ENTRY DATE: JUL 20, 2024@23:02:29 AUTHOR: GABY CASTELLANOS EXP COSIGNER: URGENCY: STATUS: COMPLETED Nursing Shift Note Nursing care provided from [id number] Highlights from shift: AAO x4, on RA breathing comfortable. No N/V. Frustrated and demanding, redirected calmly by RN, Pt was polite and cooperative remaining of the tour. IVF 500mL completed. Reported nausea, ondansetron IV given @ 0224 Oxycodone given x1 for abd pain Ileostomy in RLQ, drainage bag changed, 400mL, dark/green loose stool. Ambulates in room independently. _ Refused 0700 Metronidazole, stated medication is hurting his stomach. See ICCA for detailed assessment, Education provided on medication/cares this shift as needed Skin Interventions performed this shift: Patient turned [id number] or as appropriate while in bed. Head of Bed kept below 30 degrees unless otherwise ordered. Other: Independently repos /alexi/ GABY CASTELLANOS REGISTERED NURSE Signed: 07/21/2024 07:33 NAVIN CASTELLANOS [facility] Jul 20, 2024 06:13 PM INTERNAL MEDICINE INPATIENT NOTE: LOCAL TITLE: MEDICINE INPT PROGRESS NOTE STANDARD TITLE: INTERNAL MEDICINE INPATIENT NOTE DATE OF NOTE: JUL 20, 2024@18:13 ENTRY DATE: JUL 20, 2024@18:15:41 AUTHOR: IVAN GOLDEN EXP COSIGNER: URGENCY: STATUS: COMPLETED INPATIENT PROGRESS NOTE Subjective: NAEO. Still frustrated he does not feel well and frustrated at multiple staff members. Planning to leave tomorrow Objective: General: Awake, alert, NAD HEENT: Normocephalic, atraumatic Cardio: RRR, normal S1 and S2 without m/r/g. No appreciable JVD or Lower extremity edema Lungs: CTAB on RA Abd: soft, nontender, nondistended. Midline jeannine c/d/i. Ostomy with brown liquid stool Extrem: Moving all extremities equally Neuro: No focal deficits Active Medications: Active Inpatient Medications (including Supplies): Active Inpatient Medications Status 1) ACETAMINOPHEN (INPT) ELIXIR 650MG/20.3ML PO Q6H PRN ACTIVE 2) ALBUTEROL/IPRATROPIUM SOLN,INHL 3ML INHL Q6H PRN FOR ACTIVE SHORTNESS OF BREATH 3) ASPIRIN TAB,EC 81MG PO QAM ACTIVE 4) ATORVASTATIN TAB 20MG PO QHS ACTIVE 5) ATROPINE 0.025MG/DIPHENOXYLATE 2.5MG TAB 1 TABLET PO ACTIVE QID 6) CEFPODOXIME TAB 200MG PO BID ACTIVE 7) METRONIDAZOLE TAB 500MG PO TID ACTIVE 8) NALOXONE INJ,SOLN 0.4MG/1ML IV PRN For opioid ACTIVE overdose (difficult to arouse and RR<8). Call provider or SECONDARY SCHOOL TEACHER LIBRARIAN. May repeat every 2-3 min up to 3 total doses. Administer INTRAMUSCULARLY if no IV access. 9) ONDANSETRON INJ,SOLN 4MG/2ML IV Q6H PRN FOR NAUSEA ACTIVE 10) OXYCODONE TAB 5MG PO Q6H PRN FOR PAIN ACTIVE 11) PSYLLIUM (INPT) POWDER,ORAL 1 PACKET (1 TEASPOONFUL) ACTIVE PO BID 12) SALINE FLUSH INJ 10ML IV Q8H AFTER EACH USE, MINIMUM ACTIVE OF EVERY SHIFT. 13) TRAZODONE TAB 25MG PO QHS PRN For insomnia. Do not ACTIVE give after 11 p.m. Labs: - INR: INR 1.2 H PLASMA (06/21/24 17:24) - Complete Blood Count White count: WBC 16.6 H (07/20/24) Hemoglobin: HGB 15.1 (07/20/24) Hematocrit: HCT 43.7 (07/20/24) Platelets: PLT 431 H (07/20/24) - Complete Metabolic Panel SODIUM 121 L (07/20/24) POTASSIUM 4.1 (07/20/24) CHLORIDE 99 (07/20/24) CO2 14 L (07/20/24) UREA NITROGEN 36 H (07/20/24) CREATININE 0.8 (07/20/24) GLUCOSE 111 H (07/20/24) CALCIUM 9.5 (07/20/24) MAGNESIUM 1.8 (07/20/24) EGFR (04/01) 07/10/2021@0641 74 CREATININE EGFR (CKD-EPI) 07/20/2024@0530 >90 AST/SGOT 22 (07/17/24) ALT/SGPT 31 (07/17/24) ALK PHOSPHATASE 91 (07/17/24) ALBUMIN 4.3 (07/17/24) BILIRUBIN, TOTAL 0.8 (07/17/24) Imaging none new Assessment/Plan: 74 y/o M with h/o CAD, HLD, HTN, CKD, HFrEF, and diverticulitis complicated by colovesicular fistula and abscess formation requiring a drain in March 2024 s/p drain removal and subsequent abscess formation with IR drain placement on 06/22, now s/p laparoscopic converted to open sigmoid colectomy, splenic flexure mobilization, diverting loop ileostomy, flex sig with bilateral ureteral stent placement with CRS & Urology on 07/03/24, admitted from OSH for severe sepsis. Overall stable and improving, transitioned to PO abx on 07/19 Changes today (07/20): - Continue PO cefpodoxime and flagyl - Hyponatremia worsening, studies suggestive of hypovolemia - 500 NS bolus - Continue holding BP meds # Severe Sepsis, Resolved # Lactic Acidosis, resolved # Non anion gap metabolic acidosis Presented to OSH ED found to be tachcardic, hypotensive with systolics in 70s, leukocytosis to 23k. Empriically started on vanc and Zosyn, fluid resucitated [facility]. Still with leukocytosis on 07/17 but downtrending. Pressures stable - Discontinued Zosyn, added PO cefpodoxime and flagyl - Follow blood cultures Abx: Vanc (07/16-07/18) Zosyn (07/16-07/19) Cefpodoxime (07/19- ) Metronidazole (07/19- ) # Abdominal pain, improving # Diverticulitis s/p Sigmoid colectomy with diverting loop colostomy # Colovesicular fistula # Incisional hernia # Stool from rectum, resolved # High Output Ileostomy Patient has chronic diverticulitis with multiple hospitalizations. Recent extensive surgery for divertculitis with sigmoid colectomy with diverting loop colostomy in Fall of 2023. Low appetite and 65-70 lb weight loss. Liquid stools with negative C. diff. - Tylenol for pain prn - Colorectal consulted, appreciate recs - No acute surgical intervention at this time - OK with diet as tolerated #MIGUE, on CKD, resolved Initial Creatinine of 2.0, BUN 88 on presentation, ratio > 20:1 indicative of prerenal azotemia, which is fitting in setting of sepsis and also poor PO intake. Has improved with fluid resucitation - Daily BMP - Avoid nephrotoxic agents as able # Hyponatremia Presented with Na 128, persistent on 07/17. Likely hypovolemic given sepsis and poor PO intake on admission. S/p 2L fluid bolus and overnight fluids 07/16-07/17 - AM BMP - Consider UA to obtain urine Na, urine osm in addition to serum osms if not improving/worsening # [place] # Concern for refeeding Presenting with poor nutrition, recent 60+ lbs weight loss in previous monts given acute illnesses. Reported on admission of not tolerating or taking much PO for multiple days. - Nutrition Consult, appreciate recs - Advance to regular diet on 07/17 - BMP, Phos 07/19 AM - Goal K > 4, Mg >2, Phos > 4.5 # Nausea Likely due to recent surgical procedure. - PRN Zofran # JUANJOSE Does not use CPAP at home # HLD # CAD - Resume INDIRECT FIRE INFANTRYMAN statin and ASA on 07/17 # HTN # HFrEF - Restart INDIRECT FIRE INFANTRYMAN lisinopril 07/17 and INDIRECT FIRE INFANTRYMAN Spironolactone 07/18 given hypertension over previous 24 hours, however held PM of 07/18 due to slight hypotension Current Level of Care: Acute Urinary Catheter/Centeral Lines: None Fluids/Electrolytes/Nutritio n (FEN): Regular diet Deep Vein Thrombosis (DVT) Prophylaxis: SCDs Code Status: FULL Disposition: Likely home I have seen and discussed the patient with my attending, , who agrees with the above assessment plan. Ivan Golden MD Internal Medicine & Pediatrics PGY-2 /es/ IVAN GOLDEN [facility] MEDICINE [facility] PEDIATRICS RESIDENT Signed: 07/20/2024 18:24 IVAN GOLDEN [facility] Jul 20, 2024 03:01 PM NURSING NOTE: LOCAL TITLE: TELEMETRY AND OXIMETRY CENTRALIZED NOTE STANDARD TITLE: NURSING NOTE DATE OF NOTE: JUL 20, 2024@15:01 ENTRY DATE: JUL 20, 2024@17:28:33 AUTHOR: DIANA LI EXP COSIGNER: URGENCY: STATUS: COMPLETED Telemetry (Cardiac) Monitor: Ingrid Shift Telemetry initiation date/time: Jun@17:40. Telemetry indication: Other: Cardiac History: CAD w/PCI, AAA Cardiac rhythm interpretation: Sinus Rhythm w/ BBB HR:62 NJ Int:.194 QRS Int:.122 QT Int:.405 QTc Int:.413 Telemetry leads monitored this shift: II and V lead Alarm parameters verified this shift /es/ Марина Mcclendon tech. Pottery Decoration Designer. Signed: 07/20/2024 17:29 DIANA LI [facility] Jul 20, 2024 03:00 PM WOUND CARE NOTE: LOCAL TITLE: WOC NURSE F/U NOTE STANDARD TITLE: WOUND CARE NOTE DATE OF NOTE: JUL 20, 2024@15:00 ENTRY DATE: JUL 20, 2024@15:00:17 AUTHOR: MARTI LAYTON COSIGNER: URGENCY: STATUS: COMPLETED WOC NURSE F/U NOTE Has ADDENDA WOUND OSTOMY CONTINENCE (WOC) NURSING ASSESSMENT: REASON FOR CONSULT: new diverting loop ileostomy, high output ADMISSION DATE: 07/16/24, previously admitted 07/03- WOUND HISTORY: Per Surgical Report: 07/03/24 complicated diverticulitis - perforation with purluent peritonitis Procedure: Laparoscopic converted to open splenic flexure mobilizations, sigmoidectomy with colorectal anstamosis and diveriting loop ileostomy. ASSESSMENT: [place] resting in bed in dark room, making nonverbal disgusted face upon junior underwriter's entrance to room, cantankerous and saying comments like about time you're here and I'm tired of being treated like a f*cking lab rat, I'm done with you people. Due to junior underwriter's previous interactions of cooperative rapport, reapproached Vet to teach and educate on stoma pouching. allowed junior underwriter to inspect pouch and states come back in the morning! Spring Tester offered to come back at a later time this tour, and informed Vet that Ostomy nursing is not available on weekends. Spring Tester also delivered the patient an ostomy belt, attempted to show and demonstrate it to , and was told off for attempting teaching. Spring Tester also brought patient a month supply of precut barriers to be used with argenis ring, and a box of high output ileosomy pouches compatible with barriers. Gregoria continues to have significant output and is unable at this time to receive education. Spring Tester offered active listening and encouraged to call [facility] Triage line for assistance if he goes home. He angrily states I've tried that, it's no help. Spring Tester is highly encouraging home care involvement to be a resource for in this early stage of being a new ostomate, to offer pouching technique and support. in the past has been participatory, though this admission has not performed any pouching skills independently during junior underwriter's 4 visits. Brought patient 1 ostomy belt, awaiting arrival of [facility] count to [facility] for Vet to worm picker. Ideally, should continue using his ostomy barrier that is convex, and cut to fit (cut to 1 1/8 inch for ongoing successful pouching, with the goal of a 3 day wear time. [facility] placed 3 extra PRECUT pouches and barrier seals in bottom drawer of room for ongoing pouching needs in a ziplock bag to use inpatient if needed. These are oversized spare barriers, can be used over an argenis barrier seal. Has been having 2-3 day wear time at home in his cut to fit convex pouching system. Has history of independent pouch application and emptying. At past visits, junior underwriter discussed that [place]'s effluent lumen is flush and on the edge within a divot, causing all his leaking, making convex barriers so important to support the unique peristomal topography. Using a convex barrier to raise his stoma higher will prevent stool from seeping under adhesive barrier. -At past visits, junior underwriter made sure to press exposed barrier seal and precut hole together to reduce any air gaps. FOCAL SKIN INSPECTION ASSESSMENT - abdomen with midline incision approximated; appears to have new erythema, and buildup of crust to area, jeannine present and loosening, colorectal following, recommend more thorough cleansing if patient allows, continue use of abd binder. Spring Tester would be glad to order a hernia support belt that also accommodates his pouch if he is willing to receive education and time with ostomy nurse. -Per last assessment on Wednesday 07/18; stoma sutures soft, MCJ intact, 9 oclock area has flush effluent lumen/os on the edge of the stoma OSTOMY ASSESSMENT STOMA TYPE & LOCATION: RLQ DLI COLOR: beefy red MOISTURE: moist EDEMA: mild, reduced SIZE: 1 1/8 when pulled up, oval at rest LUMEN: loop, double lumen MUCOCUTANOUS JUNCTION: intact PROTRUSION: flush on lateral side, up to 1 cm medially FUNCTION: high output liquid stool PERISTOMAL HERNIA: slightly firm to medial aspect, reducible ABDOMEN: concave at rest, pannus crease inferiorly PERISTOMAL SKIN: MASD, redness NUTRITION: improving LABS: ALBUMIN 3.7 (06/23/24) WBC 16.6 H (07/20/24) PRESSURE INJURY RISK ASSESSMENT: Score 15-18 Mild Risk NUTRITION: Consulted BOWEL/BLADDER STATUS: continent of urine, diverting loop ileostomy DEVICES: IV, pouching system MATTRESS/BED: Standard hospital mattress -- Custom Care is appropriate SITTING SURFACES: Recommend using a Curve Cushion when out of bed on bedside chair and w/c WOUND TREATMENT/INTERVENTIONS/PLAN OF CARE: ACTIVITY ORDERS/RECOMMENDATIONS: no restrictions related to wound care at this time Ileostomy Pouching: MWF by WOC, PRN by Nursing -Anayeli New Image Red System, 2 piece (convex barrier), High Output pouch - three spare systems in room - Remove system, clean skin with tap water and gauze, dry well, see crusting below - pull up to round out stoma, place argenis cohesive seal snug to stoma - apply barrier/wafer, press barrier hole into the argenis ring to seal, click on the high output pouch - close tap with attached plug or connect to bedside drainage bag - add [id number] to prevent ballooning from gas as needed - place a warm hand to the pouch adhesive to seal it to the skin, approx 1 min PRIOR to pouching, use crusting technique to damaged periwound skin PRN: (1) dust with stomahesive powder, (2) brush away with dry gauze, (3) dab skin prep over powder to seal in, (4) repeat three times PRESSURE INJURY PREVENTION: ordered 1) Daily skin inspection 2) Repositioning in [...] Mepilex DAILY PRN if soiled or unsalvageable. - Float heels with a HEEL CARD LACER while in bed - ROOKE BOOTS; do not ambulate in ROOKE boots - Send HEEL home service advisor with upon discharge GOALS: - maintain skin integrity NEXT STEPS: - plan to see again Tuesday if is still inpatient EDUCATION: -crusting, convexity DISCHARGE PLANNING TBD to home. Will need to worm picker remaining pouches from pharmacy, has 20 count available of high output pouches when stocked SUPPLIES: -skin prep -stoma powder -ostomy vents -barrier seals (argenis) -chux Pouching System: [employer] New Image Two-Piece Pouching System Barrier: [id number] (cut to fit, convex, red system) Pouches: 1. High output drainable pouch with tap, no filter [id number] 2. Drainable lock-n-roll pouch, with filter [id number] Belt: [employer] Adapt Belt H7300 1 year supply of refills available EQUIPMENT: Prosthetics order: ostomy belt [id number] x10 FOLLOW UP: - WOC will continue to follow MWF for new ostomy education while inpatient. RTC for 6 week post op followup is in, though pending scheduling. /es/ EARLENE PATHAK, RN, CWOCN Certified Wound, Ostomy, Continence Nurse Signed: 07/20/2024 15:25 Receipt Acknowledged By: 07/30/2024 15:46 /es/ LESLEE QUINTANA MD 07/20/2024 15:57 /es/ SAMMY DIANE, RN, PHN Registered Nurse 07/20/2024 16:25 /es/ THEODORE AREVALO MD, PHD STAFF PHYSICIAN - INFECTIOUS DISEASE * AWAITING SIGNATURE * IVAN GOLDEN * AWAITING SIGNATURE * TEAM,MED THREE 07/23/2024 ADDENDUM STATUS: COMPLETED Updated CR/Med resident 07/20/24 via Page regarding suggested home care consult and general update on WOC's concerns. RTC in place. WOC will attempt to see at CR clinic visit to co-treat. /alexi/ EARLENE PATHAK, RN, CWOCN Certified Wound, Ostomy, Continence Nurse Signed: 07/23/2024 08:20 Receipt Acknowledged By: * AWAITING SIGNATURE * WENCESLAO POON ANNA E [facility] Jul 20, 2024 11:13 AM SOCIAL WORK NOTE: LOCAL TITLE: SOCIAL WORK PROGRESS NOTE STANDARD TITLE: SOCIAL WORK NOTE DATE OF NOTE: JUL 20, 2024@11:13 ENTRY DATE: JUL 20, 2024@11:13:40 AUTHOR: MARCIA NAILS COSIGNER: URGENCY: STATUS: COMPLETED Reviewed medical record/attended multidisciplinary team rounds for Med 3 which is following during this hospitalization. 73-year-old MALE (NSC) admitted from [facility] ED 07/16/24 for severe sepsis. CRS following. PMHx of CAD, HLD, HTN, CKD, HFrEF, and diverticulitis (c/b colovesicular fistula), s/p laparoscopic converted to open sigmoid colectomy, splenic flexure mobilization, diverting loop ileostomy, flex sig with bilateral ureteral stent placement with CRS & Urology on 07/03/24. Discharged on 07/10 to home. Re- admitted as a transfer from OSH for concerns for sepsis with high ileostomy output although more likely a dehydration problem. POC: Nimo Stephenson/significant other, . --- Provider indicated during AM rounds that is still needing IV fluids. Plan: Per Dr. Golden's note 07/19 - 'possible discharge in next 2 days to home.' [employer] does not run on the weekends as well as [facility]. If [place] is unable to arrange a ride with family/friends. Spring Tester asked VTS coordinator today if [employer] goes to [place], and the answer is yes, and only when [employer] has the availability to do so. PCSW will continue to follow while inpatient. /alexi/ KAREN TABOR, C-ASW STAFF CLINICAL SALES REP Signed: 07/20/2024 11:35 JAQUIMARCIA [facility] Jul 20, 2024 11:07 AM NURSING INPATIENT NOTE: LOCAL TITLE: [facility] NURSING PROGRESS NOTE STANDARD TITLE: NURSING INPATIENT NOTE DATE OF NOTE: JUL 20, 2024@11:07 ENTRY DATE: JUL 20, 2024@11:07:21 AUTHOR: YARY MCFARLANE EXP COSIGNER: URGENCY: STATUS: COMPLETED Nursing Shift Note Nursing care provided from Highlights from shift: A+Ox4. VSS on RA, afebrile. Crabby, cussing, speaking slanderously of [facility]. No SOB, CP or N/V. Pain rated 7/10 intermittently. Requested Release of Info form to bring his chart to a different hospital. Made remarks that is [facility]). Ostomy producing dark green loose stool. No leaks. Refused care/edu from WOC RN - see WOC Note. Extra supplies in room. PRN: oxycodone Abdominal incision red, scabbed/crusted throughout, jeannine are loose but in place. Vet denies them getting caught on clothing. Refused abdominal binder. Up to chair for meals. Urine sample provided, however not compliant w recording output/using hat in toilet. Transfers SBA/independently. Did not call for assitance when ambulating in room. See ICCA for detailed assessment, Education provided on medication/cares this shift as needed Assessment Type: SKIN REINSPECTION/REASSESSMENT SKIN INSPECTION: Skin Color: Usual for ethnicity Skin Temperature: Warm Skin Moisture: Normal Skin Turgor: Elastic (normal/immediate) Neel Skin Assessment: The patient's Neel Scale Score is 21. The patient is [...] Friction and shear No apparent problem. INTERVENTIONS: No change in previous interventions as listed below Pressure Ulcer-Education 07/16/2024 Provide Education On Cause/Prevention Provide Education Regarding Tx Plan Pressure Ulcer-Friction/Shear 07/16/2024 Elevate Head of Bed For Meals Head of Bed Below 30 Degrees When Not Eating When Head of Bed Elevated Raise Knee Pressure Ulcer-Moisture 07/16/2024 Instruct Pt/Family To Request Assistance Maintain Clean Dry Skin No More Than 1 Linen Layer Pressure Ulcer-Nutrition 07/16/2024 Encourage Eating And Assist With Meals Offer Liquids Q2H When Turning Provide/Encourage Oral Care As Needed Pressure Ulcer-Pressure Reducing 07/16/2024 Elevate Heels Frequent Position Changes Wheelchair Cushion Pressure Ulcer-Remobilize 07/16/2024 Encourage Activity As Tolerated Limit Sitting OOB To 2 Hr Periods Reposition In Chair Vaaes Pressure Injury Interventions 07/09/2024 Vaaes Pressure Injury Int Not Needed RISK FACTORS THAT INCREASE RISK FOR DEVELOPING PRESSURE INJURIES: The patient/resident has the following: Device(s): (nasogastric tubes, oxygen tubing, urinary catheters, cell phone etc.) Comment: Ostomy and bag w tubing, IV catheter Localized abnormality: Other: Location(s): Incision of abdominal OSTOMY: GENITOURINARY: Type: Location(s): RLQ Ileal conduit Stoma: New Stoma Description: [place] Beefy red Surrounding tissue: Usual for ethnicity Intact Skin Interventions performed this shift: Patient turned [id number] or as appropriate while in bed. Device(s) removed and skin underneath was inspected. Head of Bed kept below 30 degrees unless otherwise ordered. /alexi/ SAMMY DIANE, RN, PHN Registered Nurse Signed: 07/20/2024 18:02 YARY MCFARLANE [facility] Jul 20, 2024 07:01 AM NURSING NOTE: LOCAL TITLE: TELEMETRY AND OXIMETRY CENTRALIZED NOTE STANDARD TITLE: NURSING NOTE DATE OF NOTE: JUL 20, 2024@07:01 ENTRY DATE: JUL 20, 2024@10:02:29 AUTHOR: DIANA LI COSIGNER: URGENCY: STATUS: COMPLETED Telemetry (Cardiac) Monitor: Day Shift Telemetry initiation date/time: Jun@17:40. Telemetry indication: Other: Cardiac History: CAD w/PCI, AAA Cardiac rhythm interpretation: Sinus Rhythm HR:62 NJ Int:.163 QRS Int:.117 QT Int:.425 QTc Int:.431 Telemetry leads monitored this shift: II and V lead Alarm parameters verified this shift /alexi/ Марина Mcclendon tech. [employer] Design[employer]. Signed: 07/20/2024 10:03 DIANA LI [facility] Jul 20, 2024 02:30 AM NURSING NOTE: LOCAL TITLE: TELEMETRY AND OXIMETRY CENTRALIZED NOTE STANDARD TITLE: NURSING NOTE DATE OF NOTE: JUL 20, 2024@02:30 ENTRY DATE: JUL 20, 2024@02:30:39 AUTHOR: CHOOC WOODARD EXP COSIGNER: URGENCY: STATUS: COMPLETED Telemetry (Cardiac) Monitor: Stock Digger Telemetry initiation date/time: Jun@17:40. 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 Parameter set/change during shift to 42; Patient HR desats down into the mid 40s; Rajwinder was notified and authorizes parameter change to 42. EVENT: Through out NOC Shift patient shows abnormal P-waves and P-waves varies; notified Rajwinder. /alexi/ CHOCO WOODARD [facility] Signed: 07/20/2024 02:35 CHOCO WOODARD [facility] Jul 19, 2024 07:16 PM NURSING INPATIENT NOTE: LOCAL TITLE: [facility] NURSING PROGRESS NOTE STANDARD TITLE: NURSING INPATIENT NOTE DATE OF NOTE: JUL 19, 2024@19:16 ENTRY DATE: JUL 19, 2024@19:16:16 AUTHOR: ZOEY MURPHY EXP COSIGNER: URGENCY: STATUS: COMPLETED Nursing Shift Note Nursing care provided from [id number] Highlights from shift: - Pt AOx4, calm/cooperative, makes needs known - VSS, afebrile, no c/o N/V/SOB/CP - Tele (SB [40s-50s] with 1* AVB) - Lungs CTA, decreased in bases - L/RFA IV, flushes easily - SL - Ongoing pain in abdomen, PRN oxycodone administered x2 this tour - Mid abdominal incision, KNOCKER OUT w/ sutures. Slight redness around staple sites - Ileostomy in RLQ, draining to bag, fairly liquid with some texture w/ stool - Up with SBA - AM Labs completed - NAEO See ICCA for detailed assessment, Education provided on medication/cares this shift as needed Skin Interventions performed this shift: Patient turned [id number] or as appropriate while in bed. Patient's heels elevated with pressure relief boots or pillows under calves. Patient kept clean and dry with barrier cream applied as ordered. Device(s) removed and skin underneath was inspected. /alexi/ ZOEY CHRISTIANSON RN Signed: 07/20/2024 07:29 ZOEY MURPHY [facility] Jul 19, 2024 05:49 PM INTERNAL MEDICINE INPATIENT NOTE: LOCAL TITLE: MEDICINE INPT PROGRESS NOTE STANDARD TITLE: INTERNAL MEDICINE INPATIENT NOTE DATE OF NOTE: JUL 19, 2024@17:49 ENTRY DATE: JUL 19, 2024@17:49:48 AUTHOR: IVAN GOLDEN COSIGNER: URGENCY: STATUS: COMPLETED INPATIENT PROGRESS NOTE Subjective: NAEO, VSS. Feeling much better this morning. Hoping to get out of the hospital in the next couple of days to see a dying family member. Objective: General: Awake, alert, NAD HEENT: Normocephalic, atraumatic Cardio: RRR, normal S1 and S2 without m/r/g Lungs: CTAB, nonlabored on room air Abd: Soft, nontender to palpation. Midline jeannine without signs of active infection. Ostomy present with dark brown stool, more formed than 07/17. Extrem: Moving all extremities equally, normal strength Neuro: No focal defecits Active Medications: Active Inpatient Medications (including Supplies): Active Inpatient Medications Status 1) ACETAMINOPHEN (INPT) ELIXIR 650MG/20.3ML PO Q6H PRN ACTIVE 2) ALBUTEROL/IPRATROPIUM SOLN,INHL 3ML INHL Q6H PRN FOR ACTIVE SHORTNESS OF BREATH 3) ASPIRIN TAB,EC 81MG PO QAM ACTIVE 4) ATORVASTATIN TAB 20MG PO QHS ACTIVE 5) ATROPINE 0.025MG/DIPHENOXYLATE 2.5MG TAB 1 TABLET PO ACTIVE QID 6) CEFPODOXIME TAB 200MG PO BID ACTIVE 7) METRONIDAZOLE TAB 500MG PO TID ACTIVE 8) NALOXONE INJ,SOLN 0.4MG/1ML IV PRN For opioid ACTIVE overdose (difficult to arouse and RR<8). Call provider or SECONDARY SCHOOL TEACHER LIBRARIAN. May repeat every 2-3 min up to 3 total doses. Administer INTRAMUSCULARLY if no IV access. 9) ONDANSETRON INJ,SOLN 4MG/2ML IV Q6H PRN FOR NAUSEA ACTIVE 10) OXYCODONE TAB 5MG PO Q6H PRN FOR PAIN ACTIVE 11) PSYLLIUM (INPT) POWDER,ORAL 1 PACKET (1 TEASPOONFUL) ACTIVE PO QDAY 12) SALINE FLUSH INJ 10ML IV Q8H AFTER EACH USE, MINIMUM ACTIVE OF EVERY SHIFT. 13) TRAZODONE TAB 25MG PO QHS PRN For insomnia. Do not ACTIVE give after 11 p.m. Labs: - INR: INR 1.2 H PLASMA (06/21/24 17:24) - Complete Blood Count White count: WBC 17.3 H (07/19/24) Hemoglobin: HGB 14.8 (07/19/24) Hematocrit: HCT 42.6 (07/19/24) Platelets: PLT 456 H (07/19/24) - Complete Metabolic Panel SODIUM 129 L (07/19/24) POTASSIUM 3.3 L (07/19/24) CHLORIDE 104 (07/19/24) CO2 16 L (07/19/24) UREA NITROGEN 40 H (07/19/24) CREATININE 1.0 (07/19/24) GLUCOSE 104 H (07/19/24) CALCIUM 8.0 L (07/19/24) MAGNESIUM 1.7 (07/19/24) EGFR (04/01) 07/10/2021@0641 74 CREATININE EGFR (CKD-EPI) 07/19/2024@0530 80 AST/SGOT 22 (07/17/24) ALT/SGPT 31 (07/17/24) ALK PHOSPHATASE 91 (07/17/24) ALBUMIN 4.3 (07/17/24) BILIRUBIN, TOTAL 0.8 (07/17/24) Imaging No new imaging Assessment/Plan: 74 y/o M with h/o CAD, HLD, HTN, CKD, HFrEF, and diverticulitis complicated by colovesicular fistula and abscess formation requiring a drain in March 2024 s/p drain removal and subsequent abscess formation with IR drain placement on 06/22, now s/p laparoscopic converted to open sigmoid colectomy, splenic flexure mobilization, diverting loop ileostomy, flex sig with bilateral ureteral stent placement with CRS & Urology on 07/03/24, admitted from OSH for severe sepsis. Overall stable and improving, transitioned to PO abx on 07/19 Changes today (07/19): - Discontinued Zosyn, added PO cefpodoxime and flagyl - Hyponatremia slowly improving, likely hypovolemic - Continue holding BP meds - Feeling better, possible discharge in next 2 days # Severe Sepsis, Resolved # Lactic Acidosis, resolved # Non anion gap metabolic acidosis, resolved Presented to OSH ED found to be tachcardic, hypotensive with systolics in 70s, leukocytosis to 23k. Empriically started on vanc and Zosyn, fluid resucitated prior to transfer to [place]. Still with leukocytosis on 07/17 but downtrending. Pressures stable - Discontinued Zosyn, added PO cefpodoxime and flagyl - Follow blood cultures Abx: Vanc (07/16-07/18) Zosyn (07/16-07/19) Cefpodoxime (07/19- ) Metronidazole (07/19- ) # Abdominal pain, improving # Diverticulitis s/p Sigmoid colectomy with diverting loop colostomy # Colovesicular fistula # Incisional hernia # Stool from rectum, resolved # High Output Ileostomy Patient has chronic diverticulitis with multiple hospitalizations. Recent extensive surgery for divertculitis with sigmoid colectomy with diverting loop colostomy in Fall of 2023. Low appetite and 65-70 lb weight loss. Liquid stools with negative C. diff. - Tylenol for pain prn - Colorectal consulted, appreciate recs - No acute surgical intervention at this time - OK with diet as tolerated #MIGUE, on CKD, resolved Initial Creatinine of 2.0, BUN 88 on presentation, ratio > 20:1 indicative of prerenal azotemia, which is fitting in setting of sepsis and also poor PO intake. Has improved with fluid resucitation - Daily BMP - Avoid nephrotoxic agents as able # Hyponatremia Presented with Na 128, persistent on 07/17. Likely hypovolemic given sepsis and poor PO intake on admission. S/p 2L fluid bolus and overnight fluids 07/16-07/17 - AM BMP - Consider UA to obtain urine Na, urine osm in addition to serum osms if not improving/worsening # [place] # Concern for refeeding Presenting with poor nutrition, recent 60+ lbs weight loss in previous monts given acute illnesses. Reported on admission of not tolerating or taking much PO for multiple days. - Nutrition Consult, appreciate recs - Advance to regular diet on 07/17 - BMP, Phos 07/19 AM - Goal K > 4, Mg >2, Phos > 4.5 # Nausea Likely due to recent surgical procedure. - PRN Zofran # JUANJOSE Does not use CPAP at home # HLD # CAD - Resume INDIRECT FIRE INFANTRYMAN statin and ASA on 07/17 # HTN # HFrEF - Restart INDIRECT FIRE INFANTRYMAN lisinopril 07/17 and INDIRECT FIRE INFANTRYMAN Spironolactone 07/18 given hypertension over previous 24 hours, however held PM of 07/18 due to slight hypotension Current Level of Care: Acute Urinary Catheter/Centeral Lines: None Fluids/Electrolytes/Nutritio n (FEN): Regular diet Deep Vein Thrombosis (DVT) Prophylaxis: SCDs Code Status: FULL Disposition: Likely home I have seen and discussed the patient with my attending, , who agrees with the above assessment plan. Ivan Golden MD Internal Medicine & Pediatrics PGY-2 /es/ IVAN GOLDEN INTERNAL MEDICINE & PEDIATRICS RESIDENT Signed: 07/19/2024 17:56 IVAN GOLDNE [facility] Jul 19, 2024 04:06 PM NURSING INPATIENT NOTE: LOCAL TITLE: [facility] NURSING PROGRESS NOTE STANDARD TITLE: NURSING INPATIENT NOTE DATE OF NOTE: JUL 19, 2024@16:06 ENTRY DATE: JUL 19, 2024@16:06:56 AUTHOR: XAVI GILL EXP COSIGNER: URGENCY: STATUS: COMPLETED Nursing Shift Note Nursing care provided from [id number] Highlights from shift: [place] was oriented x4, was able to make his needs known and used the call light appropriately. Ileostomy continued to have copious amounts of output. Total output was 1450cc. He urinated in the toilet. Oxycodone was administered every 6 hours for pain management. Abdominal midline, C/D/I with jeannine. Small erythema noted surrounding incision. On room air, VSS. No acute events. See ICCA for detailed assessment, Education provided on medication/cares this shift as needed. Assessment Type: SKIN REINSPECTION/REASSESSMENT SKIN INSPECTION: Skin Color:Pale Skin Temperature:Warm Skin Moisture:Normal Skin Turgor:Elastic (normal/immediate) Neel Skin Assessment: The patient's Neel Scale Score is 18. The patient is at mild risk for development of pressure ulcer/injury. Sensory perception -- ability to respond meaningfully to pressure-related discomfort No impairment. Moisture -- degree to which skin is exposed to moisture Rarely moist. Activity -- ability to change and control body position Walks occasionally. Mobility -- ability to change and control body position No limitation. Nutrition -- usual food intake patterns Very poor. Friction and shear Potential problem. INTERVENTIONS: No change in previous interventions as listed below Pressure Ulcer-Education 07/16/2024 Provide Education On Cause/Prevention Provide Education Regarding Tx Plan Pressure Ulcer-Friction/Shear 07/16/2024 Elevate Head of Bed For Meals Head of Bed Below 30 Degrees When Not Eating When Head of Bed Elevated Raise Knee Pressure Ulcer-Moisture 07/16/2024 Instruct Pt/Family To Request Assistance Maintain Clean Dry Skin No More Than 1 Linen Layer Pressure Ulcer-Nutrition 07/16/2024 Encourage Eating And Assist With Meals Offer Liquids Q2H When Turning Provide/Encourage Oral Care As Needed Pressure Ulcer-Pressure Reducing 07/16/2024 Elevate Heels Frequent Position Changes Wheelchair Cushion Pressure Ulcer-Remobilize 07/16/2024 Encourage Activity As Tolerated Limit Sitting OOB To 2 Hr Periods Reposition In Chair Vaaes Pressure Injury Interventions 07/09/2024 Vaaes Pressure Injury Int Not Needed RISK FACTORS THAT INCREASE RISK FOR DEVELOPING PRESSURE INJURIES: The patient/resident has the following: Device(s): (nasogastric tubes, oxygen tubing, urinary catheters, cell phone etc.) Comment: Telemetry cords/box, PIV x2, Ileostomy Incision and Flaps: Incision 1: Location: Abdominal midline Status: Edges well approximated Closure: Jeannine Stabilization: None Surrounding tissue: Erythema Wound drainage none. Dressing type: Open to air Skin Interventions performed this shift: Patient independent with repositioning in bed. Patient refused to have heels elevated with pressure relief boots or pillows under calves. Patient refused to have SCDs placed on legs; patient was educated. Patient kept clean and dry with barrier cream applied as ordered. Device(s) removed and skin underneath was inspected. Head of Bed kept below 30 degrees unless otherwise ordered. /alexi/ XAVI GILL RN Signed: 07/19/2024 19:33 XAVI GILL [facility] Jul 19, 2024 03:00 PM NURSING NOTE: LOCAL TITLE: TELEMETRY AND OXIMETRY CENTRALIZED NOTE STANDARD TITLE: NURSING NOTE DATE OF NOTE: JUL 19, 2024@15:00 ENTRY DATE: JUL 19, 2024@17:10:14 AUTHOR: DIANA LI EXP COSIGNER: URGENCY: STATUS: COMPLETED Telemetry (Cardiac) Monitor: Ingrid Shift Telemetry initiation date/time: Jun@17:40. Telemetry indication: Other: Cardiac History: CAD w/PCI, AAA Cardiac rhythm interpretation: Sinus Bradycardia w/ severe 1st degree avb, & BBB HR:55 NJ Int:.389 QRS Int:.122 QT Int:.461 QTc Int:.443 Telemetry leads monitored this shift: II and V lead Alarm parameters verified this shift /es/ Diana Mustafa [employer]. Signed: 07/19/2024 17:12 DIANA LI [facility] Jul 19, 2024 07:00 AM NURSING NOTE: LOCAL TITLE: TELEMETRY AND OXIMETRY CENTRALIZED NOTE STANDARD TITLE: NURSING NOTE DATE OF NOTE: JUL 19, 2024@07:00 ENTRY DATE: JUL 19, 2024@10:40:09 AUTHOR: DIANA LI EXP COSIGNER: URGENCY: STATUS: COMPLETED Telemetry (Cardiac) Monitor: Day Shift Telemetry initiation date/time: Jun@17:40. Telemetry indication: Other: Cardiac History: CAD w/PCI, AAA Cardiac rhythm interpretation: Sinus Rhythm HR:62 NJ Int:.153 QRS Int:.117 QT Int:.472 QTc Int:.481 Telemetry leads monitored this shift: II and V lead Alarm parameters verified this shift /es/ Jamialang [employer]. Signed: 07/19/2024 10:41 DIANA LI [facility] Jul 18, 2024 11:00 PM NURSING NOTE: LOCAL TITLE: TELEMETRY AND OXIMETRY CENTRALIZED NOTE STANDARD TITLE: NURSING NOTE DATE OF NOTE: JUL 18, 2024@23:00 ENTRY DATE: JUL 19, 2024@06:20:35 AUTHOR: EVELIA GOEL EXP COSIGNER: URGENCY: STATUS: COMPLETED Telemetry (Cardiac) Monitor: Stock Digger Telemetry initiation date/time: Jun@17:40. Telemetry indication: Other Cardiac History: HTN, CAD s/p PCI, AAA Cardiac rhythm interpretation: Sinus Bradycardia with 1 AVB and BBB HR:57 NJ Int:0.22 QRS Int:0.127 QT Int:0.353 QTc Int:0.344 Telemetry leads monitored this shift: V lead and II Alarm parameters verified this shift /es/ EVELIA GOEL Telemetry Technicdaljitn Signed: 07/19/2024 06:21 EVELIA GOEL [facility] Jul 18, 2024 09:26 PM NURSING INPATIENT NOTE: LOCAL TITLE: [place] NURSING PROGRESS NOTE STANDARD TITLE: NURSING INPATIENT NOTE DATE OF NOTE: JUL 18, 2024@21:26 ENTRY DATE: JUL 18, 2024@21:26:06 AUTHOR: NYA SANCHEZ I EXP COSIGNER: URGENCY: STATUS: COMPLETED Nursing Shift Note Nursing care provided from Highlights from shift: MAGUE; A&Ox4; Makes needs known; Mild irritability during interactions; Has been more polite and cooperative this shift; Denies CP, BP soft start of shift, received 500ml total IV NS, BP WNL after fluids; Pt noted to have low fluid po intake, encouraged; Rest of VSS; C/o of SOB previous shift, pt using 2L O2, sats high 90%; Pt stated supplemental oxygen as helpful; Offred but declined scheduled neb tx; No fever/chills; No N/V Voids BR; Colostomy bag intact; Draining to tracey bag; PRN oxycodone given for pain x2, pt stated somewhat effective; SBA OOB See ICCA for detailed assessment, Education provided on medication/cares this shift as needed Skin Interventions performed this shift: Head of Bed kept below 30 degrees unless otherwise ordered. Other: Pt self turns in bed /alexi/ Nya Sanchez RN Signed: 07/19/2024 06:36 NYA SANCHEZ I [facility] Jul 18, 2024 07:04 PM NURSING INPATIENT NOTE: LOCAL TITLE: [place] NURSING PROGRESS NOTE STANDARD TITLE: NURSING INPATIENT NOTE DATE OF NOTE: JUL 18, 2024@19:04 ENTRY DATE: JUL 18, 2024@19:04:49 AUTHOR: JANET CHOWDHURY EXP COSIGNER: URGENCY: STATUS: COMPLETED Nursing Shift Note Nursing care provided from Highlights from shift: Pt is A&Ox4, afebrile, NSR 60-70's, SBP 110-90's. LS clear/decreased, on 2L NC for comfort. Pt was satting >98% on RA. Ostomy pouch changed by WOCN this AM, w/total output of 400 this tour. Voiding in urinal. C/o pain but refuses to take oral pain medications, only wants IV pain medications. Pt was initially unpleasant, and dismissive of this junior underwriter, but behavior improved after this junior underwriter clean midline incision on ABD. This evening around 1800, pt started complaining of worsening SOB. paged and at bedside. Pt was placed on 2L NC for comfort. LS slightly more decreased compared to 1300 assessment. CXR and EKG obtained per orders. Denies chest pain, nausea, and vomiting. See ICCA for detailed assessment, Education provided on medication/cares this shift as needed Skin Interventions performed this shift: Patient's heels elevated with pressure relief boots or pillows under calves. Patient kept clean and dry with barrier cream applied as ordered. Device(s) removed and skin underneath was inspected. /es/ Nou Her, marriage performer nurse, SICU Signed: 07/18/2024 19:18 JANET CHOWDHURY [facility] Jul 18, 2024 03:23 PM INTERNAL MEDICINE INPATIENT NOTE: LOCAL TITLE: MEDICINE INPT PROGRESS NOTE STANDARD TITLE: INTERNAL MEDICINE INPATIENT NOTE DATE OF NOTE: JUL 18, 2024@15:23 ENTRY DATE: JUL 18, 2024@15:24:08 AUTHOR: IVAN GOLDEN COSIGNER: URGENCY: STATUS: COMPLETED INPATIENT PROGRESS NOTE Subjective: CLEMENTE GRISSMO. Nursing notes reviewed. Having frustration about not being prescribed further IV pain medications. Was able to eat some breakfast this AM without major issue and currently eating lunch, stools from ostomy starting to bulk up. Frustrated at staff, cussing at end of visit. Objective: General: Awake, alert, NAD HEENT: Normocephalic, atraumatic Cardio: RRR, normal S1 and S2 without m/r/g Lungs: CTAB, nonlabored on room air Abd: Soft, nontender to palpation. Midline jeannine without signs of active infection. Ostomy present with dark brown stool, more formed than 07/17. Extrem: Moving all extremities equally, normal strength Neuro: No focal defecits Active Medications: Active Inpatient Medications (including Supplies): Active Inpatient Medications Status 1) ACETAMINOPHEN (INPT) ELIXIR 650MG/20.3ML PO Q6H PRN ACTIVE 2) ASPIRIN TAB,EC 81MG PO QAM ACTIVE 3) ATORVASTATIN TAB 20MG PO QHS ACTIVE 4) ATROPINE 0.025MG/DIPHENOXYLATE 2.5MG TAB 1 TABLET PO ACTIVE QID 5) LISINOPRIL TAB 10MG PO QAM ACTIVE 6) NALOXONE INJ,SOLN 0.4MG/1ML IV PRN For opioid ACTIVE overdose (difficult to arouse and RR<8). Call provider or SECONDARY SCHOOL TEACHER LIBRARIAN. May repeat every 2-3 min up to 3 total doses. Administer INTRAMUSCULARLY if no IV access. 7) ONDANSETRON INJ,SOLN 4MG/2ML IV Q6H PRN FOR NAUSEA ACTIVE 8) OXYCODONE TAB 5MG PO Q6H PRN FOR PAIN ACTIVE 9) PIPERACILLIN/TAZOBACTAM 4.5GM 100ML INJ in ACTIVE PIPERACIL/TAZOB 4.5GM PREMIX 100 ML INFUSE OVER 30 Minutes Pharmacy Confirmation #: [id number] IVPB Q6H 10) PSYLLIUM (INPT) POWDER,ORAL 1 PACKET (1 TEASPOONFUL) ACTIVE PO QDAY 11) SALINE FLUSH INJ 10ML IV Q8H AFTER EACH USE, MINIMUM ACTIVE OF EVERY SHIFT. 12) SPIRONOLACTONE TAB 12.5MG PO QDAY ACTIVE 13) TRAZODONE TAB 25MG PO QHS PRN For insomnia. Do not ACTIVE give after 11 p.m. Labs: - INR: INR 1.2 H PLASMA (06/21/24 17:24) - Complete Blood Count White count: WBC 18.9 H (07/17/24) Hemoglobin: HGB 17.0 (07/17/24) Hematocrit: HCT 49.5 (07/17/24) Platelets: PLT 503 H (07/17/24) - Complete Metabolic Panel SODIUM 128 L (07/17/24) POTASSIUM 3.8 (07/17/24) CHLORIDE 100 (07/17/24) CO2 16 L (07/17/24) UREA NITROGEN 62 H (07/17/24) CREATININE 1.2 (07/17/24) GLUCOSE 116 H (07/17/24) CALCIUM 9.3 (07/17/24) MAGNESIUM 2.1 (07/17/24) EGFR (04/01) 07/10/2021@0641 74 CREATININE EGFR (CKD-EPI) 07/17/2024@1855 64 AST/SGOT 22 (07/17/24) ALT/SGPT 31 (07/17/24) ALK PHOSPHATASE 91 (07/17/24) ALBUMIN 4.3 (07/17/24) BILIRUBIN, TOTAL 0.8 (07/17/24) Imaging no new imaging Assessment/Plan: 74 y/o M with h/o CAD, HLD, HTN, CKD, HFrEF, and diverticulitis complicated by colovesicular fistula and abscess formation requiring a drain in March 2024 s/p drain removal and subsequent abscess formation with IR drain placement on 06/22, now s/p laparoscopic converted to open sigmoid colectomy, splenic flexure mobilization, diverting loop ileostomy, flex sig with bilateral ureteral stent placement with CRS & Urology on 07/03/24, admitted from OSH for severe sepsis. Overall stable and improving on antibiotics and IV fluids. Changes today (07/18): - Discontinue Vanc - Plan to stop Zosyn tomorrow (07/19) at 72 hours pending overnight course - Patient declined all labs this AM, will attempt to repeat 07/19 - Plan to not prescribe further opioids # Severe Sepsis, Resolved # Lactic Acidosis, resolved # Non anion gap metabolic acidosis, resolved Presented to OSH ED found to be tachcardic, hypotensive with systolics in 70s, leukocytosis to 23k. Empriically started on vanc and Zosyn, fluid resucitated prior to [facility]. Still with leukocytosis on 07/17 but downtrending. Pressures stable - Continue Zosyn, plan to treat empirically until 72 hours (07/19 PM) - Follow blood cultures - Will discontinue fluids on 07/17 given consistent normotension (pending ability to tolerate PO diet) # Abdominal pain, improving # Diverticulitis s/p Sigmoid colectomy with diverting loop colostomy # Colovesicular fistula # Incisional hernia # Stool from rectum, resolved # High Output Ileostomy Patient has chronic diverticulitis with multiple hospitalizations. Recent extensive surgery for divertculitis with sigmoid colectomy with diverting loop colostomy in Fall of 2023. Low appetite and 65-70 lb weight loss. Liquid stools with negative C. diff. - Tylenol for pain prn - Colorectal consulted, appreciate recs - No acute surgical intervention at this time - OK with diet as tolerated #MIGUE, on CKD, Improving Initial Creatinine of 2.0, BUN 88 on presentation, ratio > 20:1 indicative of prerenal azotemia, which is fitting in setting of sepsis and also poor PO intake. Has improved with fluid resucitation - Daily BMP - Avoid nephrotoxic agents as able # Hyponatremia Presented with Na 128, persistent on 07/17. Likely hypovolemic given sepsis and poor PO intake on admission. S/p 2L fluid bolus and overnight fluids 07/16-07/17 - Will attempt AM BMP on 07/19 pending patient compliance - Consider UA to obtain urine Na, urine osm in addition to serum osms if not improving/worsening # [place] # Concern for refeeding Presenting with poor nutrition, recent 60+ lbs weight loss in previous monts given acute illnesses. Reported on admission of not tolerating or taking much PO for multiple days. - Nutrition Consult, appreciate recs - Advance to regular diet on 07/17 - BMP, Phos 07/19 AM - Goal K > 4, Mg >2, Phos > 4.5 # Nausea Likely due to recent surgical procedure. - PRN Zofran # JUANJOSE Does not use CPAP at home # HLD # CAD - Resume INDIRECT FIRE INFANTRYMAN statin and ASA on 07/17 # HTN # HFrEF - Restart INDIRECT FIRE INFANTRYMAN lisinopril 07/17 -Restard INDIRECT FIRE INFANTRYMAN Spironolactone 07/18 given hypertension over previous 24 hours Current Level of Care: Acute Urinary Catheter/Centeral Lines: None Fluids/Electrolytes/Nutritio n (FEN): Regular diet Deep Vein Thrombosis (DVT) Prophylaxis: SCDs Code Status: FULL Disposition: Likely home I have seen and discussed the patient with my attending, , who agrees with the above assessment plan. Ivan Golden MD Internal Medicine & Pediatrics PGY-2 /es/ IVAN GOLDEN INTERNAL MEDICINE & PEDIATRICS RESIDENT Signed: 07/18/2024 16:01 IVAN GOLDEN [facility] Jul 18, 2024 03:00 PM NURSING NOTE: LOCAL TITLE: TELEMETRY AND OXIMETRY CENTRALIZED NOTE STANDARD TITLE: NURSING NOTE DATE OF NOTE: JUL 18, 2024@15:00 ENTRY DATE: JUL 18, 2024@17:10:17 AUTHOR: DIANA LI COSIGNER: URGENCY: STATUS: COMPLETED Telemetry (Cardiac) Monitor: Ingrid Shift Telemetry initiation date/time: Jun@17:40. Telemetry indication: Other: Cardiac History: CAD w/PCI, AAA Cardiac rhythm interpretation: Sinus Rhyhtm w/BBB HR:61 NJ Int:.178 QRS Int:.127 QT Int:.451 QTc Int:.455 Telemetry leads monitored this shift: II and V lead Alarm parameters verified this shift /es/ Марина Mcclendon. Pottery Decoration Designer. Signed: 07/18/2024 17:12 DIANA LI [facility] Jul 18, 2024 11:01 AM WOUND CARE NOTE: LOCAL TITLE: WOC NURSE F/U NOTE STANDARD TITLE: WOUND CARE NOTE DATE OF NOTE: JUL 18, 2024@11:01 ENTRY DATE: JUL 18, 2024@11:01:26 AUTHOR: MARTI LAYTON COSIGNER: URGENCY: STATUS: COMPLETED WOUND OSTOMY CONTINENCE (WOC) NURSING ASSESSMENT: REASON FOR CONSULT: new diverting loop ileostomy, high output ADMISSION DATE: 07/16/24, previously admitted 07/03- WOUND HISTORY: Per Surgical Report: 07/03/24 complicated diverticulitis - perforation with purluent peritonitis Procedure: Laparoscopic converted to open splenic flexure mobilizations, sigmoidectomy with colorectal anstamosis and diveriting loop ileostomy. ASSESSMENT: [place] resting in bed, cantankerous and saying comments like nobody knows what they're doing with my pouch and doesn't seem like I'll be getting much rest. states nobody will give me pain meds, they think I'm a drug addict. Spring Tester offered active listening and encouraged [place] to participate in ostomy education for independence with his pouch applications. He agreed to let junior underwriter change it and was minimally involved, stating he is very tired. Large liquid green-brown frothy output from ileostomy, minimally thicker today, would benefit from ongoing use of thickening agents and continued diet (refusing per RN). Spring Tester assisted with pouch change to a high output 2 pc system, with convex barrier to assist with 's flush loop stoma. Awaiting refill from pharmacy for bedside supply. Ordered ostomy belt, awaiting arrival. Okay to use ABD binder with hole cut to accomodate pouch, discussed with Nursing. was cooperative. He was in a flat-barrier 1 pc coloplast high output pouch upon arrival, WOC placed 3 extra PRECUT pouches and barrier seals in bottom drawer of room for ongoing pouching needs in a ziplock bag. Has been having 2-3 day wear time at home in his cut to fit convex pouching system. Spring Tester discussed that Veterans effluent lumen is flush and on the edge within a divot, causing all his leaking, making convex barriers so important to raise his stoma higher to prevent stool seeping under adhesive barrier. -Spring Tester made sure to press exposed barrier seal and precut hole together to reduce any air gaps. FOCAL SKIN INSPECTION ASSESSMENT - abdomen with midline incision approximated, jeannine present, colorectal following, recommend more thorough cleansing if patient agrees -peristomal skin breakdown improving and intact with some redness from the convexity and healing MASD -sutures soft, MCJ intact, 9 olcock area has flush effluent lumen/os on the edge of the stoma OSTOMY ASSESSMENT STOMA TYPE & LOCATION: RLQ DLI COLOR: beefy red MOISTURE: moist EDEMA: mild, reduced SIZE: 1 09/05 when pulled up, oval at rest LUMEN: loop, double lumen MUCOCUTANOUS JUNCTION: intact PROTRUSION: flush on lateral side, up to 1 cm medially FUNCTION: high output liquid stool PERISTOMAL HERNIA: slightly firm to medial aspect, reducible ABDOMEN: concave at rest, pannus crease inferiorly PERISTOMAL SKIN: MASD, redness NUTRITION: improving LABS: ALBUMIN 3.7 (06/23/24) WBC 18.9 H (07/17/24) PRESSURE INJURY RISK ASSESSMENT: Score 15-18 Mild Risk NUTRITION: Consulted BOWEL/BLADDER STATUS: continent of urine, diverting loop ileostomy DEVICES: IV, pouching system MATTRESS/BED: Standard hospital mattress -- Custom Care is appropriate SITTING SURFACES: Recommend using a Curve Cushion when out of bed on bedside chair and w/c WOUND TREATMENT/INTERVENTIONS/PLAN OF CARE: ACTIVITY ORDERS/RECOMMENDATIONS: no restrictions related to wound care at this time Ileostomy Pouching: MWF by [facility], PRN by Nursing -Anayeli New Image Red System, 2 piece (convex barrier), High Output pouch - three spare systems in room - Remove system, clean skin with tap water and gauze, dry well, see crusting below - pull up to round out stoma, place argenis cohesive seal snug to stoma - apply barrier/wafer, press barrier hole into the argenis ring to seal, click on the high output pouch - close tap with attached plug or connect to bedside drainage bag - add amqs-sy-flat to prevent ballooning from gas as needed - place a warm hand to the pouch adhesive to seal it to the skin, approx 1 min PRIOR to pouching, use crusting technique to damaged periwound skin PRN: (1) dust with stomahesive powder, (2) brush away with dry gauze, (3) dab skin prep over powder to seal in, (4) repeat three times PRESSURE INJURY PREVENTION: ordered 1) Daily skin inspection 2) Repositioning in [...] Mepilex DAILY PRN if soiled or unsalvageable. - Float heels with a HEEL CARD LACER while in bed - ROOKE BOOTS; do not ambulate in ROOKE boots - Send HEEL home service advisor with upon discharge GOALS: - maintain skin integrity NEXT STEPS: - plan to see again Tuesday for ongoing ostomy teaching EDUCATION: -crusting, convexity DISCHARGE PLANNING TBD, will potentially need high output pouch for home SUPPLIES: TBD, has cut to fit 2pc anayeli red system in orders for 1 year supply of refills, appropriate for use, also has high output pouch Eqipment: ostomy belt [id number] x10 FOLLOW UP: - WOC will continue to follow MWF for new ostomy education /es/ EARLENE PATHAK, RN, CWOCN Certified Wound, Ostomy, Continence Nurse Signed: 07/18/2024 11:22 MARTI LAYTON [facility] Jul 18, 2024 07:00 AM NURSING NOTE: LOCAL TITLE: TELEMETRY AND OXIMETRY CENTRALIZED NOTE STANDARD TITLE: NURSING NOTE DATE OF NOTE: JUL 18, 2024@07:00 ENTRY DATE: JUL 18, 2024@10:38:09 AUTHOR: ENDASHAW,AMSALE A EXP COSIGNER: URGENCY: STATUS: COMPLETED Telemetry (Cardiac) Monitor: Day Shift Telemetry initiation date/time: Jun@17:40. Telemetry indication: Other: Cardiac History: CAD w/PCI, AAA Cardiac rhythm interpretation: Sinus Bradycardia w/1st degree AVB, & BBB HR:55 NJ Int:.389 QRS Int:.137 QT Int:.497 QTc Int:.477 Telemetry leads monitored this shift: II and V lead Alarm parameters verified this shift /alexi/ Марина Mcclendon techGabriela Pottery Decoration Designer. Signed: 07/18/2024 10:43 DIANA LI [facility] Jul 18, 2024 06:39 AM NURSING INPATIENT NOTE: LOCAL TITLE: [place] NURSING PROGRESS NOTE STANDARD TITLE: NURSING INPATIENT NOTE DATE OF NOTE: JUL 18, 2024@06:39 ENTRY DATE: JUL 18, 2024@06:39:56 AUTHOR: SADIA ECHEVARRIA EXP COSIGNER: URGENCY: STATUS: COMPLETED Nursing Shift Note Nursing care provided from [phone] Highlights from shift: -NAEO. Alert and oriented x4. NSR w/1st degfree AVB on telemetry. Calm and cooperative with RN overnight. -Total OP from ostomy is ~500 ml. Is much guest relations manager, starting to bulk up compared to yesterday night (diet started). -IV abx infused. PRN ondansetron given x1. -Adamant that pills are what is upsetting his stomach, I will not take one more damn pill from this place, I'll tell you that much. Was upset on evening shift that he could not have IV diluaid and did reluctantly take the oxycdone that was ordered but declined to take in the morning when junior underwriter offered for abdominal pain. See ICCA for detailed assessment Education provided on medication/cares this shift as needed Skin Interventions performed this shift: Patient kept clean and dry with barrier cream applied as ordered. Device(s) removed and skin underneath was inspected. Head of Bed kept below 30 degrees unless otherwise ordered. /alexi/ SADIA ECHEVARRIA RN Signed: 07/18/2024 06:44 SADIA ECHEVARRIA [facility] Jul 17, 2024 11:00 PM NURSING NOTE: LOCAL TITLE: TELEMETRY AND OXIMETRY CENTRALIZED NOTE STANDARD TITLE: NURSING NOTE DATE OF NOTE: JUL 17, 2024@23:00 ENTRY DATE: JUL 18, 2024@04:46:59 AUTHOR: EVELIA GOEL EXP COSIGNER: URGENCY: STATUS: COMPLETED Telemetry (Cardiac) Monitor: Stock Digger Telemetry initiation date/time: Jun@17:40. Telemetry indication: Other Cardiac History: HTN, CAD s/p PCI, AAA Cardiac rhythm interpretation: Sinus Bradycardia with 1 AVB and BBB HR:53 NJ Int:0.348 QRS Int:0.134 QT Int:0.41 QTc Int:0.387 Telemetry leads monitored this shift: V lead and II Alarm parameters verified this shift /alexi/ EVELIA GOEL Telemetry Technicnian Signed: 07/18/2024 04:48 EVELIA GOEL [facility] Jul 17, 2024 09:12 PM NURSING INPATIENT NOTE: LOCAL TITLE: [place] NURSING PROGRESS NOTE STANDARD TITLE: NURSING INPATIENT NOTE DATE OF NOTE: JUL 17, 2024@21:12 ENTRY DATE: JUL 17, 2024@21:12:08 AUTHOR: NYA SANCHEZ I EXP COSIGNER: URGENCY: STATUS: COMPLETED Nursing Shift Note Nursing care provided from [phone] Highlights from shift: In bed this shift; Irritable during most interactions; Req/given prn Zofran for nausea, stated effective; VSS, RA; Denies CP and SOB; Tele (SR) IV ABx administered as ordered; Colostomy bag intact, no leak, draining well; Voids BR; SBA with transfers; C/o of abdominal pain 04/07, request IV pain relief; NF1 notified, pt was ordered oxycodone; Pt did take ordered oxycodone however was not happy and preferred IV pain relief, dismissive with explanations; See ICCA for detailed assessment, Education provided on medication/cares this shift as needed Skin Interventions performed this shift: Patient's heels elevated with pressure relief boots or pillows under calves. Device(s) removed and skin underneath was inspected. Head of Bed kept below 30 degrees unless otherwise ordered. /alexi/ Nya Sanchze RN Signed: 07/17/2024 23:28 NYA SANCHEZ I [facility] Jul 17, 2024 07:25 PM NURSING INPATIENT NOTE: LOCAL TITLE: [place] NURSING PROGRESS NOTE STANDARD TITLE: NURSING INPATIENT NOTE DATE OF NOTE: JUL 17, 2024@19:25 ENTRY DATE: JUL 17, 2024@19:25:08 AUTHOR: TURNER LO COSIGNER: URGENCY: STATUS: COMPLETED Nursing Shift Note Nursing care provided from [phone] Highlights from shift: *MAGUE; vitals stable, restarted lisinopril *bilateral PIVs both patent - IV abx *alert & oriented x4; SBA with transfers/ambulation Patient can become quite irritable and verbally abusive to staff - swearing at junior underwriter for not giving him IV dilaudid (non ordered), also swearing about his colostomy bag leaking (but in the same turn refusing meds to bulk up stool which is liquid. Swearing that he was NPO, then swearing that junior underwriter made him eat too much and now he has stomach ache. See ICCA for detailed assessment Education provided on medication/cares this shift as needed Assessment Type: SKIN REINSPECTION/REASSESSMENT SKIN INSPECTION: Skin Color: Usual for ethnicity Skin Temperature: Warm Skin Moisture: Normal Skin Turgor: Non-Elastic Neel Skin Assessment: The patient's Neel Scale Score is 16. The patient is [...] change in previous interventions as listed below Pressure Ulcer-Education 07/16/2024 Provide Education On Cause/Prevention Provide Education Regarding Tx Plan Pressure Ulcer-Friction/Shear 07/16/2024 Elevate Head of Bed For Meals Head of Bed Below 30 Degrees When Not Eating When Head of Bed Elevated Raise Knee Pressure Ulcer-Moisture 07/16/2024 Instruct Pt/Family To Request Assistance Maintain Clean Dry Skin No More Than 1 Linen Layer Pressure Ulcer-Nutrition 07/16/2024 Encourage Eating And Assist With Meals Offer Liquids Q2H When Turning Provide/Encourage Oral Care As Needed Pressure Ulcer-Pressure Reducing 07/16/2024 Elevate Heels Frequent Position Changes Wheelchair Cushion Pressure Ulcer-Remobilize 07/16/2024 Encourage Activity As Tolerated Limit Sitting OOB To 2 Hr Periods Reposition In Chair Vaaes Pressure Injury Interventions 07/09/2024 Vaaes Pressure Injury Int Not Needed RISK FACTORS THAT INCREASE RISK FOR DEVELOPING PRESSURE INJURIES: The patient/resident has the following: Device(s): (nasogastric tubes, oxygen tubing, urinary catheters, cell phone etc.) Comment: ostomy Neuropathy Potential compromised nutritional status Incision and Flaps: Incision 1: Location: midline abdominal Status: Edges well approximated Closure: Jeannine Stabilization: None Surrounding tissue: Intact Erythema Wound drainage none. Dressing type: Open to air OSTOMY: GASTROINTESTINAL: Type: Location(s): RLQ Colostomy Stoma: New Stoma Description: [place] Beefy red Surrounding tissue: Raw Red Ostomy Management: Pouch changed Wafer changed Hygiene completed Total Assist Comment: changed @1800 Skin Interventions performed this shift: Patient kept clean and dry with barrier cream applied as ordered. Device(s) removed and skin underneath was inspected. Other: independent with isaac /alexi/ TURNER LO NEWBORN HEARING SCREENER NURSE Signed: 07/17/2024 19:37 TURNER LO [facility] Jul 17, 2024 06:44 PM NURSING NOTE: LOCAL TITLE: TELEMETRY AND OXIMETRY CENTRALIZED NOTE STANDARD TITLE: NURSING NOTE DATE OF NOTE: JUL 17, 2024@18:44 ENTRY DATE: JUL 17, 2024@18:44:16 AUTHOR: CHOCO WOODARD EXP COSIGNER: URGENCY: STATUS: COMPLETED Telemetry (Cardiac) Monitor: Evening Shift Telemetry initiation date/time: Jun@17:40. Telemetry indication: Other: Cardiac History: CAD w/PCI, AAA, HTN Cardiac rhythm interpretation: Sinus Rhythm w/1st deg AVB HR:60 NJ Int:0.24 QRS Int:0.096 QT Int:0.436 QTc Int:0.437 Telemetry leads monitored this shift: II and V lead Alarm parameters verified this shift and set at: 45-130. Parameter set/change by previous shift. Continuous Oximetry Monitor: Evening Shift Continuous oximetry initiation date/time: Jun@17:40. Oximetry indication: other: Respiratory history: JUANJOSE, Multiple nodules of lung Continuous oximetry readin% Comments: Discontinue Vital Signs: O2 Sats Start Date/Time: 07/16/2024 12:12 Stop Date/Time: 07/17/2024 13:52 Current Status: DISCONTINUED Orders that have been explicitly stopped. Order #[id number] /alexi/ CHOCO WOODARD [facility] Signed: 07/17/2024 18:49 CHOCO WOODARD [facility] Jul 17, 2024 12:39 PM INTERNAL MEDICINE INPATIENT NOTE: LOCAL TITLE: MEDICINE INPT PROGRESS NOTE STANDARD TITLE: INTERNAL MEDICINE INPATIENT NOTE DATE OF NOTE: JUL 17, 2024@12:39 ENTRY DATE: JUL 17, 2024@12:39:28 AUTHOR: IVAN GOLDEN COSIGNER: URGENCY: STATUS: COMPLETED INPATIENT PROGRESS NOTE Subjective: NAEO, VSS. Overall feeling much better than yesterday, feeling less weak. Had some mild abdominal pain overnight that has now resolved. Interested in starting to try some liquids and possibly food today. Stool output from ostomy is a darker color than the yellow it was yesterday, which appears more at his baseline. Objective: General: Awake, alert, NAD. HEENT: Normocephalic, atraumatic. Anicteric sclerae Cardio: Regualr rate and rhythm, normal S1 and S2 without murmurs, rubs, or gallops Lungs: Clear to auscultation bilaterally, nonlabored breathing on room air. Abd: Full, nondistended with midline lower abdominal jeannine clear, dry, and intact. Tracey drain to ostomy, draining dark brown , mildly formed liquid. No tenderness to palpation of all quadrants Extrem: Moving all extremities equally Neuro: Alert and grossly oriented, answering questions appropriately Active Medications: Active Inpatient Medications (including Supplies): Active Inpatient Medications Status 1) NALOXONE INJ,SOLN 0.4MG/1ML IV PRN For opioid ACTIVE overdose (difficult to arouse and RR<8). Call provider or SECONDARY SCHOOL TEACHER LIBRARIAN. May repeat every 2-3 min up to 3 total doses. Administer INTRAMUSCULARLY if no IV access. 2) ONDANSETRON INJ,SOLN 4MG/2ML IV Q6H PRN FOR NAUSEA ACTIVE 3) PIPERACILLIN/TAZOBACTAM 4.5GM 100ML INJ in ACTIVE PIPERACIL/TAZOB 4.5GM PREMIX 100 ML INFUSE OVER 30 Minutes Pharmacy Confirmation #: [id number] IVPB Q6H 4) SALINE FLUSH INJ 10ML IV Q8H AFTER EACH USE, MINIMUM ACTIVE OF EVERY SHIFT. 5) VANCOMYCIN 1250MG/250ML PREMIX BAG INJ in VANCOMYCIN ACTIVE 1250MG PREMIX 250 ML DON'T USE IN INFUSE OVER 120 Minutes IV Q24H Labs: - INR: INR 1.2 H PLASMA (06/21/24 17:24) - Complete Blood Count White count: WBC 18.9 H (07/17/24) Hemoglobin: HGB 17.0 (07/17/24) Hematocrit: HCT 49.5 (07/17/24) Platelets: PLT 503 H (07/17/24) - Complete Metabolic Panel SODIUM 128 L (07/17/24) POTASSIUM 4.3 (07/17/24) CHLORIDE 101 (07/17/24) CO2 14 L (07/17/24) UREA NITROGEN 70 H (07/17/24) CREATININE 1.3 H (07/17/24) GLUCOSE 112 H (07/17/24) CALCIUM 9.8 (07/17/24) MAGNESIUM 2.3 (07/17/24) EGFR (04/01) 07/10/2021@0641 74 CREATININE EGFR (CKD-EPI) 07/17/2024@0530 58 L AST/SGOT 22 (07/17/24) ALT/SGPT 31 (07/17/24) ALK PHOSPHATASE 91 (07/17/24) ALBUMIN 4.3 (07/17/24) BILIRUBIN, TOTAL 0.8 (07/17/24) Imaging No new imaging Assessment/Plan: 74 y/o M with h/o CAD, HLD, HTN, CKD, HFrEF, and diverticulitis complicated by colovesicular fistula and abscess formation requiring a drain in March 2024 s/p drain removal and subsequent abscess formation with IR drain placement on 06/22, now s/p laparoscopic converted to open sigmoid colectomy, splenic flexure mobilization, diverting loop ileostomy, flex sig with bilateral ureteral stent placement with CRS & Urology on 07/03/24, admitted from OSH for severe sepsis. Overall stable and improving on antibiotics and IV fluids. # Severe Sepsis, Improving # Lactic Acidosis, resolved # Non anion gap metabolic acidosis, resolved Presented to OSH ED found to be tachcardic, hypotensive with systolics in 70s, leukocytosis to 23k. Empriically started on vanc and Zosyn, fluid resucitated prior to transfer to [place]. Still with leukocytosis on 07/17 but downtrending. Pressures stable - Continue Vancomycin and Zosyn, plan to treat empirically for 48-72 hours - Follow blood cultures - Will discontinue fluids on 07/17 given consistent normotension (pending ability to tolerate PO diet) # Abdominal pain, improving # Diverticulitis s/p Sigmoid colectomy with diverting loop colostomy # Colovesicular fistula # Incisional hernia # Stool from rectum, resolved # High Output Ileostomy Patient has chronic diverticulitis with multiple hospitalizations. Recent extensive surgery for divertculitis with sigmoid colectomy with diverting loop colostomy in Fall of 2023. Low appetite and 65-70 lb weight loss. Liquid stools with negative C. diff. - Tylenol for pain prn - Colorectal consulted, appreciate recs - No acute surgical intervention at this time - OK with progressing diet as tolerated #MIGUE, on CKD, Improving Initial Creatinine of 2.0, BUN 88 on presentation, ratio > 20:1 indicative of prerenal azotemia, which is fitting in setting of sepsis and also poor PO intake. Has improved with fluid resucitation - Daily BMP - Avoid nephrotoxic agents as able # Hyponatremia Presented with Na 128, persistent on 07/17. Likely hypovolemic given sepsis and poor PO intake on admission. S/p 2L fluid bolus and overnight fluids - AM BMP (also checking on PM BMP refeeding labs) - Consider UA to obtain urine Na, urine osm in addition to serum osms if not improving/worsening # [place] # Concern for refeeding Presenting with poor nutrition, recent 60+ lbs weight loss in previous monts given acute illnesses. Reported on admission of not tolerating or taking much PO for multiple days. - Nutrition Consult, appreciate recs - Advance to regular diet on 07/17 - BMP, Phos Q12 on 07/17 to monitor for refeeding, will space as able - Goal K > 4, Mg >2, Phos > 4.5 # Nausea Likely due to recent surgical procedure. - PRN Zofran # JUANJOSE Does not use CPAP at home # HLD # CAD - Resume INDIRECT FIRE INFANTRYMAN statin and ASA on 07/17 # HTN # HFrEF - Restart INDIRECT FIRE INFANTRYMAN lisinopril 07/17 - Continue holding INDIRECT FIRE INFANTRYMAN Spironolactone, plan to start 07/18 pending pressures Current Level of Care: Acute Urinary Catheter/Centeral Lines: None Fluids/Electrolytes/Nutritio n (FEN): Regular diet Deep Vein Thrombosis (DVT) Prophylaxis: SCDs Code Status: FULL Disposition: Home vs CLC I have seen and discussed the patient with my attending, , who agrees with the above assessment plan. Ivan Golden MD Internal Medicine & Pediatrics PGY-2 /es/ IVAN GOLDEN INTERNAL MEDICINE & PEDIATRICS RESIDENT Signed: 07/17/2024 13:54 CHANTELIVAN Mcfarlane [facility] Jul 17, 2024 12:24 PM NUTRITION CONSULT: LOCAL TITLE: NUTRITION INPT CONSULT STANDARD TITLE: NUTRITION CONSULT DATE OF NOTE: JUL 17, 2024@12:24 ENTRY DATE: JUL 17, 2024@12:25 AUTHOR: DALILA GRIFFITHS COSIGNER: URGENCY: STATUS: COMPLETED Visit Information: Delivery Method: In-Person Visit Type: Initial Visit Reason for visit: +Malnutrition screen Time of visit: 11:15 ASSESSMENT: Mr. Weaver is a 73yoM with a PMH of CKD, chronic diverticulitis with colovesicular fistula, incisional hernia, and abscess who was admitted for nausea, liquid stools, and abdominal pain s/p sigmoid colectomy with diverting loop colostomy. Reports UBW of 240#; attributes wt loss to decreased appetite, nausea. States nausea much improved since his meds were switched to injectable vs. pill. Reports wt of 185# 1 week ago, awaiting updated weight. At time of visit, said last time he ate was prior to hospital admission to [facility] prior to transfer to [place]. Pt was upgraded from NPO to Clear liquid diet at time of visit & requested apple juice over ice and popsicles. Pt reports main intake at home was minimal: toast, cream of wheat, scrambled eggs, sprite, water. Noted GI saw pt this morning; pt with high output ileostomy; rec'd Imodium and fiber which he declined last time. Says he has not received nutrition & ileostomy education but says he is not in a place to receive it right now. Height: 70 in Weight: 205.6 lb [93.26 kg] (07/03/2024) BMI: 29.6 Wt loss of 20# (9%) in past 9 months, notable but not significant. However will re-evaluate once updated wt obtained. Estimated Nutrient Intake: Calories: 500 kcal/day Protein: 10 g/day Fluid: unable to assess Comparative Standards: Calories: 7139-8429 based pt's last stated wt of 84 kg, 25-30 kcal/kg Protein 84 g/day Based on: 1 g/kg Fluid: 1105-2523 ml/day Based on: 1 ml/kcal or per medical team given high output ileostomy. Fiber: 28 g/day Based on: 14 g/1000 kcal Diet Order: CL LIQ Labs: ALBUMIN 4.3 (07/17/24) Malnutrition Assessment (per AND/ASPEN Consensus Statement, 2012): Suspect Mild to Moderate Inflammation Moderate Inadequate Energy Intake: < 75 % for >/= 1 month Wt loss; Yes, but not considered significant. 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 DIAGNOSIS: Problem: Inadequate fiber intake Etiology: increased GI losses, previously declined fiber supplement Signs/Symptoms: high output ileostomy, low Na lab. Secondary dx: Problem: Inadequate oral intake Etiology: decreased appetite, previous nausea Signs/Symptoms: Wt loss of 9% in past 9 months. INTERVENTION: Nutrition Prescription: Clear liquid diet, ADAT. Collaboration by nutrition professional with other providers: Reached out to provider regarding Oral Rehydration Formula (Pedialyte) which can be ordered for hydration.Fiber (Psyllium) supplement started; Banatrol could be ordered while inpt to help bulk stool if currently ordered fiber does not help. Goal: Pt to receive fiber and hydration. Content related nutrition education: Pt not ready for education however provided printed educational materials for pt to review on Nutrition for Ostomy's, including oral rehydration recipe. Goal: Pt to review educational material by f/u. Patient Education of Treatment Plan: Patient indicates readiness to learn, verbalizes understanding, agreement and satisfaction with the treatment plan. Denies further questions. MONITORING & EVALUATION: GI Stooling: <2L/day by f/u Status: NEW Sodium: WNL By f/u Status: NEW Measured body weight: >185# by f/u Status NEW Follow Up: Dietitian to follow up in 7 days if still an inpatient. Participant does not desire additional follow up at this time; has RD telephone number if he desires f/u in the future. /alexi/ DALILA GRIFFITHS, MS, RD, LD, CNSC Registered Dietitian, 3E/4J Signed: 07/17/2024 13:58 DALILA GRIFFITHS [facility] Jul 17, 2024 08:06 AM COLON & RECTAL SURGERY NOTE: LOCAL TITLE: COLON-RECTAL INPT PROGRESS NOTE STANDARD TITLE: COLON & RECTAL SURGERY NOTE DATE OF NOTE: JUL 17, 2024@08:06 ENTRY DATE: JUL 17, 2024@08:06:29 AUTHOR: CHAPITO HENAO EXP COSIGNER: URGENCY: STATUS: COMPLETED CRS PROGRESS NOTE Formal note to follow. Patient admitted with hypovolemia 2/2 high ileostomy output Recommend resucitation and strict I/O of ileostomy Can advance diet to general diet Will need to encourage fiber and immodium; patient adamantely declined these last time /alexi/ CHAPITO Henao MD. Colorectal Fellow Signed: 07/17/2024 08:08 CHAPITO HENAO [facility] Jul 17, 2024 07:19 AM NURSING INPATIENT NOTE: LOCAL TITLE: [facility] NURSING PROGRESS NOTE STANDARD TITLE: NURSING INPATIENT NOTE DATE OF NOTE: JUL 17, 2024@07:19 ENTRY DATE: JUL 17, 2024@07:19:31 AUTHOR: SADIA ECHEVARRIA EXP COSIGNER: URGENCY: STATUS: COMPLETED Nursing Shift Note Nursing care provided from [phone] Highlights from shift: -NAEO. VSS. Alert and oriented x4, pleasant and cooperative. NSR with 1st degree AVB, does get mildy bradycardic overnight when sleeping. -Total osotomy OP is 800 ml, bile colored.-Did c/o abdominal pain rated 7/10 at 0630, PRN dilaudid given x1 as NPO. Also given PRN ondansetron for nausea x2 overnight, effective See ICCA for detailed assessment Education provided on medication/cares this shift as needed Skin Interventions performed this shift: Patient turned B0aassc or as appropriate while in bed. Patient kept clean and dry with barrier cream applied as ordered. Head of Bed kept below 30 degrees unless otherwise ordered. /alexi/ SADIA ECHEVARRIA RN Signed: 07/17/2024 07:23 SADIA ECHEVARRIA [facility] Jul 17, 2024 07:01 AM NURSING NOTE: LOCAL TITLE: TELEMETRY AND OXIMETRY CENTRALIZED NOTE STANDARD TITLE: NURSING NOTE DATE OF NOTE: JUL 17, 2024@07:01 ENTRY DATE: JUL 17, 2024@11:25:52 AUTHOR: DIANA LI EXP COSIGNER: URGENCY: STATUS: COMPLETED Telemetry (Cardiac) Monitor: Day Shift Telemetry initiation date/time: Jun@17:40. Telemetry indication: Other: Cardiac History: CAD w/PCI, AAA Cardiac rhythm interpretation: Sinus Rhythm w/1st degree AVB, & BBB HR:61 NJ Int:.214 QRS Int:.122 QT Int:.451 QTc Int:.455 Telemetry leads monitored this shift: II and V lead Alarm parameters verified this shift Continuous Oximetry Monitor: Day Shift Continuous oximetry initiation date/time: Jun@17:40. Oximetry indication: other: Respiratory history: sleep apnea Continuous oximetry readin% Alarm parameters verified this shift. Accuracy of oxygen reading verified by waveform and/or review. /alexi/ Diana [employer]Mobi[employer]. Pottery Decoration Designer. Signed: 07/17/2024 11:40 DIANA LI [facility] Jul 17, 2024 01:59 AM NURSING NOTE: LOCAL TITLE: TELEMETRY AND OXIMETRY CENTRALIZED NOTE STANDARD TITLE: NURSING NOTE DATE OF NOTE: JUL 17, 2024@01:59 ENTRY DATE: JUL 17, 2024@03:03:04 AUTHOR: BHARAT ZABALA EXP COSIGNER: URGENCY: STATUS: COMPLETED Telemetry (Cardiac) Monitor: Stock Digger Telemetry initiation date/time: Jun@17:40. Telemetry indication: Other: Cardiac History: CAD w/PCI, AAA Cardiac rhythm interpretation: Sinus rhythm w/BBB HR:61 NJ Int:.20 QRS Int:.12 QT Int:.43 QTc Int:.44 RN notified of patient having changes in cardiac rhythm: Accelerated junctional -> SR, severe 1st Degree AVB w/variable NJ, NJ lengthening like Wenckebach w/no drop in QRS. Faxed FD to 3E nurse. Telemetry leads monitored this shift: II and V lead Alarm parameters verified this shift Continuous Oximetry Monitor: Stock Digger Continuous oximetry initiation date/time: Jun@17:40. Oximetry indication: other: Respiratory history: sleep apnea Continuous oximetry readin% Alarm parameters verified this shift. Accuracy of oxygen reading verified by waveform and/or review. /alexi/ BHARAT ZABALA CAMP ASSISTANT Signed: 07/17/2024 03:14 BHARAT ZABALA [facility] Jul 16, 2024 08:38 PM NURSING INPATIENT NOTE: LOCAL TITLE: [facility] NURSING PROGRESS NOTE STANDARD TITLE: NURSING INPATIENT NOTE DATE OF NOTE: JUL 16, 2024@20:38 ENTRY DATE: JUL 16, 2024@20:38:25 AUTHOR: MONAE SIDDIQUI EXP COSIGNER: URGENCY: STATUS: COMPLETED Nursing Shift Note Nursing care provided from Admission to 1999 Highlights from shift: - alert and oriented x4, able to make his needs known. appropriate use of the call light - no inappropriate behaviors noted - vitals obtained on arrival to floor, stable. no hypotension noted - HR SB/SR 50-90 - oxygen saturations remained stable on room air - afebrile - cultures x2 collected - new IV placed in the left lower forearm 20g - leaking noted from ileostomy, bag and ostomy system changed twice. irritation noticed around stoma site. WOC RN aware of the irritation - IV bolus of 500cc of NaCl administered - patient complained of intermittent abdominal pain, requested pain medication from MD, waiting for orders. - NPO, okay for ice chips and sips of water will pills. will be NPO again after midnight per NF1 See ICCA for detailed assessment, Education provided on medication/cares this shift as needed Assessment Type: SKIN REINSPECTION/REASSESSMENT SKIN INSPECTION: Skin Color: Usual for ethnicity Skin Temperature: Warm Skin Moisture: Normal Skin Turgor: Non-Elastic Neel Skin Assessment: The patient's Neel Scale Score is 17. The patient is at mild risk for [...] Adequate. Friction and shear Potential problem. INTERVENTIONS: No change in previous interventions as listed below Pressure Ulcer-Education 07/16/2024 Provide Education On Cause/Prevention Provide Education Regarding Tx Plan Pressure Ulcer-Friction/Shear 07/16/2024 Elevate Head of Bed For Meals Head of Bed Below 30 Degrees When Not Eating When Head of Bed Elevated Raise Knee Pressure Ulcer-Moisture 07/16/2024 Instruct Pt/Family To Request Assistance Maintain Clean Dry Skin No More Than 1 Linen Layer Pressure Ulcer-Nutrition 07/16/2024 Encourage Eating And Assist With Meals Offer Liquids Q2H When Turning Provide/Encourage Oral Care As Needed Pressure Ulcer-Pressure Reducing 07/16/2024 Elevate Heels Frequent Position Changes Wheelchair Cushion Pressure Ulcer-Remobilize 07/16/2024 Encourage Activity As Tolerated Limit Sitting OOB To 2 Hr Periods Reposition In Chair Vaaes Pressure Injury Interventions 07/09/2024 Vaaes Pressure Injury Int Not Needed RISK FACTORS THAT INCREASE RISK FOR DEVELOPING PRESSURE INJURIES: The patient/resident has the following: Device(s): (nasogastric tubes, oxygen tubing, urinary catheters, cell phone etc.) Comment: ostomy bag Neuropathy Potential compromised nutritional status Incision and Flaps: Incision 1: Location: abdominal midline Status: Edges well approximated Closure: [place] Stabilization: None Surrounding tissue: Erythema Wound drainage none. Dressing type: Open to air OSTOMY: GASTROINTESTINAL: Type: Location(s): right lower quadrant Colostomy Stoma: Established Stoma Description: [place] Beefy red Surrounding tissue: Raw Red Ostomy Management: Pouch changed Wafer changed Hygiene completed Total Assist Comment: complete ostomy system was changed twice since admission to the floor. Large output noted. at 1700 connected tracey bag to the ostomy bag to help drain the large amount of fecal matter Skin Interventions performed this shift: Patient's heels elevated with pressure relief boots or pillows under calves. Patient kept clean and dry with barrier cream applied as ordered. Device(s) removed and skin underneath was inspected. Other: the patient is independent in reposition himself in bed // MONAE SIDDIQUI RN RN Signed: 07/16/2024 21:04 MONAE SIDDIQUI [facility] Jul 16, 2024 07:50 PM ATTENDING ADMISSION EVALUATION NOTE: LOCAL TITLE: MEDICINE ADMISSION STAFF NOTE STANDARD TITLE: ATTENDING ADMISSION EVALUATION NOTE DATE OF NOTE: JUL 16, 2024@19:50 ENTRY DATE: JUL 16, 2024@19:50:32 AUTHOR: FLACA ORTEZ COSIGNER: URGENCY: STATUS: COMPLETED I met with and examined the patient Agree with code status as ordered. Work up and Treatment Plan: The H&P was presented to me by the resident/medical student. I have verified pertinent findings and discussed the assessment, goals, diagnostic evaluation and treatment plan with the resident/medical student. Summary noted below. Plan of care was discussed with the patient and/or family (risks/benefits/alternatives ). CHIEF COMPLAINT/REASON FOR ADMISSION: Nausea, liquid stools, and abdominal pain. PERTINENT HISTORY: This 73 yo man presented to ED in a [facility] because of nausea, liquid stools, and abdominal pain gradually increasing over the last 2 weeks. He was seein on [place] WBC was [id number]. Sent home and returned today and was worse. He had leukocytosis, and elevated lactic acid (~3.5), abdominal pain, hypotension, and a rapid pulse. They determined he had sepsis syndrome and The provider arrange for transfer here for direct admission to because he has been hospitalized here three times since April 22. His outside records are on 3E but have not been uploaded into [employer]. This afternoon, he repeated the above although he was exhausted and frustrated with the months of symptoms, procedures, and hospitalizations. He was alert and oriented. He does not recall many of the details of the recent past events and is frustrated with multiple past interviews. Mr. Weaver has had diverticulosis since before 2018 when he was first diagnosed here. He had mild diverticulitis at that time. It was recommended that he be admissed, but he declined. He does not remember today when diverticulosis was first diagnosed but he told a physician in March that it had been present more than 10 years. He presented to [facility] on April 23, 2024 with about 10 days of abdominal discomfort. During an attempt to obtain urine for urinalysis, a nurse noticed gas and fecal material in the urine. An abdominal-pelvic CT revealed acute diverticulitis w/ a 7.4cm x 4.2cm abscess and new colovesicular fistula. He was transferred to [facility]. He was transferred here where he was given antimicrobials, and a drain was placed into the abscess. When the drain was flushed, fecal material drained into the Tracey. He was treated with antibiotics and was discharted to be followed in [facility]. He was admitted for a flair of diverticulitis from June 21-. He was admitted on July 03 for surgery. The initial approach was by laparoscopy, but the sigmoid was inflammed and adhered to the pelvic side wall and anterior abdominal wall. there was extensive inflammation and the surgeons decided to proceed with open abdominal surgery. The sigmoid colon was bluntly dissected free from the anterior abdominal wall. There was pus everywhere. The sigmoid was bluntly dissected from the pelvic side wall. A loop of small bowel adhered to the colon. The small bowel mesentery contained an abscess. Eventually, the surgeons performed a sigmoidectomy with colorectal anstamosis and diverting loop ileostomy. A drain was placed in the pelvis and the abdomen was closed. He was discharged on July 10. The tentative plan was to connect his ilium to the large bowel on in early August. He has had chronic nausea since discharge. He has little appetite and hasn't been able to eat or drink much. Feels dehydated. He feels lightheaded whe he is up walking around the house. According to weights here, he has lost 40 lbs since January 05, 2023. He also gets dyspneic which seems to be associated with mild exercise, i.e., walking around the house. He has approximately 50 pack- year smoking history, quitting 15 years ago. The last PA&lateral chest films showed flattened diaghrams and increased air retrosternal airspace. 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) Pain of both knees (SCT 415515205882323)History of surgery (SCT 582937247) Wrist pain (SCT 51544151) Carpal tunnel syndrome (SCT 33070897) Steatosis of liver (SCT 572222839) Diverticular disease (SCT 392900962) Infarction of kidney (SCT 92682026) Ex-tobacco user (SCT 589924153) Impaired Fasting Glucose (SCT 434096729)Adrenal mass (SCT 997363320) Abdominal aortic aneurysm (SCT 190502958[place] cyst (SCT 40030064) Multiple nodules of lung (SCT 724767905)Hiatal hernia (SCT 38018599) Shoulder Pain (SCT 18403633) Trigger finger (SCT 2526097) [facility] Primary Care (ICD-10-CM R69.) Last Vital Signs: BP: 151/73 (07/09/2024 23:47) Heart Rate: 59 (07/09/2024 23:47) Respirations: 18 (07/09/2024 23:47)/min Temperature: 97.9 F [36.6 C] (07/09/2024 23:47) Pain: 0 (07/16/2024 12:17) BMI: 29.6 O2 Sat: 98% (07/09/2024 23:47) PERTINENT EXAM: Chronically ill appearing man who looks depressed. Heart sounds diminished. No M, R, G Chest diminished breath sounds. No rales or wheezes. Abdomen soft, mild tenderness left side. Ileostomy site clean, healing, appears healthy. No organomegally or masses. Bottom just cleaned and redressed by everett nurse and ostomy nurse. LABORATORY/X-RAY/OTHER PERTINENT DATA: LACTIC ACID: 0.9 MRSA ADMIT/TRANSFER: NEGATIVE LACTIC ACID: 0.9 WBC: 19.7 H RBC: 5.39 HGB: 16.3 HCT: 47.7 MCV: 88.5 MCH: 30.2 MCHC: 34.2 RDW: 13.9 PLT: 474 H MPV: 11.2 SEGS: 82.0 LYMPHS: 7.5 MONOCYTES: 10.0 EOSINO: 0.5 BASO: 0.0 NORMOCHROMIC: YES NEUTROPHIL, ABSOLUTE: 16.2 H EOSINO, ABSOLUTE: 0.1 BASO, ABSOLUTE: 0.0 MONOCYTE, ALTERNATE ABS: 2.0 H LYMPHS, ALTERNATE ABS: 1.5 RBC MORPHOLOGY: PRESENT GLUCOSE: 97 UREA NITROGEN: 88 H CREATININE: 2.0 H SODIUM: 128 L POTASSIUM: 4.0 CHLORIDE: 96 L CO2: 18 L CALCIUM: 9.7 PROTEIN,TOTAL: 7.7 ALBUMIN: 4.3 BILIRUBIN,TOTAL: 0.7 MAGNESIUM: 2.2 ANION GAP: 14 ALKALINE PHOSPHATASE(37C): 86 SGOT(37C): 22 SGPT(37C): 37 CREATININE EGFR (CKD-EPI): 35 L Impression for CHEST 2 VIEWS PA AND LAT, 07/08/24, case 24 No acute cardiopulmonary disease. ASSESSMENT & TREATMENT PLAN / RECOMMENDATIONS: Diverticulitis SP drainage of mesenteric abscess, conservative treatment of colovesicular fistula. He has extensive inflammation and is severely dehydrated. Creatinine has increased from 1 mg/dl to 2, and BUN was 88. We are giving him IV hydration. There is evidence of substantial inflammation but no clear evidence of systemic infection. Nonetheless he is on piperacillin- tazobactam and vancomycin pending cultures. Colorectal service has seen him and we appreciate their input. /alexi/ Mariano Ortez M.D. INTERNAL MEDICINE & INFECTIOUS DISEASES Signed: 07/16/2024 21:37 FLACA ORTEZ [facility] Jul 16, 2024 06:50 PM NURSING NOTE: LOCAL TITLE: TELEMETRY AND OXIMETRY CENTRALIZED NOTE STANDARD TITLE: NURSING NOTE DATE OF NOTE: JUL 16, 2024@18:50 ENTRY DATE: JUL 16, 2024@19:06:12 AUTHOR: VERONICA MINA EXP COSIGNER: URGENCY: STATUS: COMPLETED Telemetry (Cardiac) Monitor: ADMIT/INGRID Shift Telemetry initiation date/time: Jun@17:40. Telemetry indication: OTHER: Cardiac History: CAD Cardiac rhythm interpretation: SINUS SOCORRO W/1ST DEG AVB & BBB HR:53 [place] Int:0.22 QRS Int:0.127 QT Int:0.446 QTc Int:0.42 Telemetry leads monitored this shift: II and V lead Alarm parameters verified this shift Continuous Oximetry Monitor: ADMIT/INGRID Shift Continuous oximetry initiation date/time: Jun@17:40. Oximetry indication: OTHER Respiratory history: SLEEP APNEA Continuous oximetry readin-100% Alarm parameters verified this shift. Accuracy of oxygen reading verified by waveform and/or review. /alexi/ GEE ERICKSON Regional Service Manager Signed: 07/16/2024 19:09 VERONICA MINA [facility] Jul 16, 2024 05:04 PM H & P NOTE: LOCAL TITLE: H&P HISTORY & PHYSICAL - MEDICINE STANDARD TITLE: H & P NOTE DATE OF NOTE: JUL 16, 2024@17:04 ENTRY DATE: JUL 16, 2024@17:04:19 AUTHOR: BILLY HAN EXP COSIGNER: IVAN GOLDEN URGENCY: STATUS: COMPLETED H&P HISTORY & PHYSICAL - MEDICINE Has ADDENDA MEDICINE HISTORY & PHYSICAL Chief Complaint: Nausea and abdominal pain History of Present Illness (HPI) - 73 years old MALE admitted for: Mr. Weaver is a 73yoM with a PMH of CAD with PCI 2016, AAA, HLD, HTN, CKD, HF? EF, JUANJOSE (not using CPAP), BL GAIL aneurysms, and chronic diverticulitis with colovesicular fistula and abscess who was admitted for nausea, liquid stools, and abdominal pain s/p sigmoid colectomy with diverting loop colostomy. Mr. Weaver reports chronic nausea, especially in the past 2 weeks. He also has lower back pain, feeling sore from laying down too long, and has a history of 3 back surgeries. He also reports constant dull abdominal pain in the LLQ and LRQ. He is having a lot of ostomy output very quickly, and has had the bag changed twice now. He was told to take Metamucil post-op but felt that has made him have too much stool output. He has had low appetite and reports 65-70lb weight loss. He has had normal-coloured, but decreased urine output due to decreased fluid intake. States he may have a surgery to connect his small to large bowel on Sep 02, 2024. Patient expresses considerable frustration with his medical care and condition for the past 10 years. Mr. Weaver sometimes has SOB, lightheadedness, and his chest feels tight. These episodes occur with light movement such as walking a few feet, last for a few minutes, and cause him to have to sit to catch his breath. Denies wheezing, SOB at this time. Occasionally, he has subjective fevers, chills, and sweats. Smoked 1.5 ppd from when he was a teenager, quit 10-15 years ago. Used to be in the [employer] for 2 years in [place]. 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 Emergency Department (ED) Course: Past Medical History: Active problems - Computerized [...] . No additional CRC surveillance recommended by baby registry sales consultant. 9. Decreased vitamin D - [...] - By 02.13.[address] 03.14.2020 OSH(ED [place], [place]): Pt. Declined Admission. 03.14.2020 CT with Mild Sigmoid diverticulitis. 04.23.2020 ED([facility]): Declined admission. 17. 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 18. Ex-tobacco user 19. Impaired Fasting Glucose (SCT [id number]) - 02.26.2014 A1c 5.8%. 20. Adrenal mass [...] hernia 25. Shoulder Pain ([facility] [id number]) 26. Trigger finger 27. [facility] - [facility] Care Primary: Dr. Cathi Simeon, [place] [address]. Past Surgical History: Jul 03, 2024 Proc: Laparoscopic converted to open sigmoid colectomy, splenic flexure mobilization, diverting loop ileostomy, flexable sigmoidoscopy Jul 03, 2024 Proc: Cystoscopy, bilateral ureteral stent placement Sep 03, 2015 Proc: EUA, Hemorrhoidectomy Sep 02, 2014 Proc: Left median nerve decompression Per patient: Kidney stone removal and 3 back surgeries Family History: Social History: 1. Tobacco - Smoked 1.5 ppd from when he was a teenager, quit 10-15 years ago. 2. Alcohol - 3. Illicit Drug Use - 4. Living Situation - Lives at home with his 5. Occupation - Was in the [employer] for 2 years in [place]. 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 Allergies: TERAZOSIN (Mar 13, 2015) Review of Systems: Per HPI. General: Occasional fever, sweats, and chills. Cardiovascular: No chest pain or palpitations Lungs: Episodes of SOB and chest tightness with light activity. Denies wheezing, SOB at this time. GI: See HPI : Decreased UO, dehydrated, decreased fluid intake Neuro: Some lightheadedness with episodes of SOB. MSK: Lower back pain. Physical Exam: Temp: Pulse: BP: Resp: Weight: Pain: O2 Sat: BMI: General: Laying in bed, NAD, awake, alert, responsive to questions, easily frustrated. HEENT: Normocephalic, atraumatic Cardio: Heart sounds faint, distant. Lungs: Clear to auscultation, no increased work of breathing, on room air. Abd: Soft, non-distended. Hypoactive bowel sounds. Mildly tender to palpation in LLQ. Ostomy bag in RLQ, initially had light yellow urine-like output, later was changed and had no output. Stoma round, red, shiny, moist, intact, non- erythematous, above skin level. No pain with palpation in inguinal region. Extrem: ROM grossly intact. Neuro: A&O x4. Responding appropriately, not AMS. Labs: - Complete Blood Count White count: WBC 19.7 H (07/16/24) Hemoglobin: HGB 16.3 (07/16/24) Hematocrit: HCT 47.7 (07/16/24) Platelets: PLT 474 H (07/16/24) - Complete Metabolic Panel SODIUM 128 L (07/16/24) POTASSIUM 4.0 (07/16/24) CHLORIDE 96 L (07/16/24) CO2 18 L (07/16/24) UREA NITROGEN 88 H (07/16/24) CREATININE 2.0 H (07/16/24) GLUCOSE 97 (07/16/24) CALCIUM 9.7 (07/16/24) MAGNESIUM 2.2 (07/16/24) CREATININE EGFR (CKD-EPI) 07/16/2024@1408 35 L AST/SGOT 22 (07/16/24) ALT/SGPT 37 (07/16/24) ALK PHOSPHATASE 86 (07/16/24) ALBUMIN 4.3 (07/16/24) BILIRUBIN, TOTAL 0.7 (07/16/24) MRSA SURVL NARES DNA Negative (07/16/24) Lactic acid 0.9 mmol/L Ref range 0.5-2.2 (07/16/24) Active and Recently Inpatient Medications (including Supplies): Active Inpatient Medications Status 1) PIPERACILLIN/TAZOBACTAM 4.5GM 100ML INJ in ACTIVE PIPERACIL/TAZOB 4.5GM PREMIX 100 ML INFUSE OVER 30 Minutes Pharmacy Confirmation #: [id number] IVPB Q6H 2) SALINE FLUSH INJ 10ML IV Q8H AFTER EACH USE, MINIMUM ACTIVE OF EVERY SHIFT. 3) SODIUM CHLORIDE 0.9% INJ in 0.9% NACL 500 ML 500 ACTIVE ml/hr@0 IV LIMIT: 500 mls IV 4) VANCOMYCIN 1250MG/250ML PREMIX BAG INJ in VANCOMYCIN ACTIVE 1250MG PREMIX 250 ML DON'T USE IN INFUSE OVER 120 Minutes IV Q24H Pending Inpatient Medications Status 1) LACTATED RINGERS INJ,SOLN in LACTATED RINGERS 1000 PENDING ML 75 ml/hr IV Inactive Inpatient Medications Status 1) VANCOMYCIN 750MG/150ML PREMIX BAG INJ in VANCOMYCIN DISCONTINUED 750MG PREMIX 150 ML DON'T USE IN INFUSE OVER 120 MINUTES IV Q12H 6 Total Medications No Active Remote Medications for this patient Imaging CXR 2 VIEWS PA AND LAT 07/08/24: Impression: No acute cardiopulmonary disease. CHEST CT 07/08/24: Impression: 1. Postsurgical changes with sigmoidectomy and RIGHT lower quadrant ileostomy. No postsurgical fluid collection. Mild fluid distention of small and large bowel likely due to mild ileus. No definite obstruction or other acute findings. Surgical drain is present in the pelvis. 2. Other chronic changes as noted above Assessment/Plan: Mr. Weaver is a 73yoM with a PMH of CAD with PCI 2016, AAA, BL GAIL aneurysms, HF?EF, CKD, HTN, HLD, JUANJOSE (not using CPAP), tobacco use and chronic diverticulitis with colovesicular fistula, incisional hernia, and abscess who was admitted for nausea, liquid stools, and abdominal pain s/p sigmoid colectomy with diverting loop colostomy. # C/f sepsis # Hypotension, improved Patient had tachycardia, elevated WBC, and elevated lactate (now improved), meeting criteria for severe sepsis. Hypotensive in 70s/50s, but BP has been normal since then. Received Vancomycin, Zosyn, and 2L fluids in the ED. - Give 0.5L NS bolus - Start maintenance IVF LR - Give Vancomycin - Give Zosyn - Blood culture drawn, results pending # Abdominal pain # Diverticulitis s/p Sigmoid colectomy with diverting loop colostomy # Colovesicular fistula # Incisional hernia # Stool from rectum Patient has chronic diverticulitis with multiple hospitalizations. Recent extensive surgery for divertculitis with sigmoid colectomy with diverting loop colostomy. Low appetite and 65-70 lb weight loss. Liquid stools with negative C. diff. - Tylenol for pain - Colorectal consulted - Continue NPO in case of possible additional procedure. - Get CBC 07/17/24 # MIGUE # CKD # Electrolyte imbalance Elevated BUN 88, Cr 2.0 and low Na 128, Cl 96, and CO2 18. Acute kidney injury likely in the setting of hypovolemia. Replete with IVF, monitor labs to check for refeeding syndrome. - Get BMP 07/17/24 - Get Mg, Phos 07/17/24 - Give 0.5L NS bolus - Start maintenance IVF LR # Nausea Likely due to recent surgical procedure. - Odansetron # SOB # Low back pain Sore from laying down. History of back surgeries. - Recommend moving, switching from bed to recliner - Tylenol for pain - Has Oxycodone # Elevated lactic acid, improving # JUANJOSE Does not use CPAP # HLD # HTN - INDIRECT FIRE INFANTRYMAN Spironolactone - INDIRECT FIRE INFANTRYMAN Lisinopril # HF?EF - Hold INDIRECT FIRE INFANTRYMAN Aspirin in case of possible upcoming procedure. Fluids/Electrolytes/Nutritio n (FEN): NPO Deep Vein Thrombosis (DVT) Prophylaxis: SCDs, not LMWH in case of possible upcoming procedure Code Status: Full code Disposition: Pending clinical course. I have seen and discussed the patient with my attending, Dr. Ortez, who agrees with the above assessment and plan. Billy Han, Medical Student /alexi/ BILLY HAN MS3 Signed: 07/16/2024 18:27 /alexi/ Mariano Ortez M.D. INTERNAL MEDICINE & INFECTIOUS DISEASES Cosigned: 07/16/2024 21:35 for IVAN GOLDEN INTERNAL MEDICINE & PEDIATRICS RESIDENT 07/16/2024 ADDENDUM STATUS: COMPLETED I hereby attest to the accuracy of the student's note as to the dubon aspect of the history of present illness, physical examination, and medical decision making with any exceptions or corrections noted. I independently performed the dubon aspects of the physical examination and medical decision making. Please see my Medicine Attending Staff Note dated for additional details. /alexi/ Mariano Ortez M.D. INTERNAL MEDICINE & INFECTIOUS DISEASES Signed: 07/16/2024 21:38 BILLY HAN [facility] Jul 16, 2024 03:13 PM WOUND CARE CONSULT: LOCAL TITLE: WOC NURSE CONSULT STANDARD TITLE: WOUND CARE CONSULT DATE OF NOTE: JUL 16, 2024@15:13 ENTRY DATE: JUL 16, 2024@15:13:08 AUTHOR: MARTI LAYTON COSIGNER: URGENCY: STATUS: COMPLETED WOUND OSTOMY CONTINENCE ([facility]) NURSING ASSESSMENT: REASON FOR CONSULT: new diverting loop ileostomy, high output ADMISSION DATE: 07/16/24, previously admitted 07/03- WOUND HISTORY: Per Surgical Report: 07/03/24 complicated diverticulitis - perforation with purluent peritonitis Procedure: Laparoscopic converted to open splenic flexure mobilizations, sigmoidectomy with colorectal anstamosis and diveriting loop ileostomy. ASSESSMENT: resting in bed, large liquid green frothy output from ileostomy. Spring Tester assisted with pouch change to a high output 2 pc system. Will order for patient use while inpatient. [place] rememebered junior underwriter from previous education visits and was cooperative and pleasant. Has been having 2-3 day wear time at home in his cut to fit convex pouching system. Demonstrated crusting this visit and discussed okay to shower with pouch on. He is open to ongoing education. FULL SKIN INSPECTION ASSESSMENT *did not visualize feet this visit* -skin intact, slightly olive toned -blanchable redness to L buttocks, intact -groin intact - abdomen with midline incision approximated, jeannine present, colorectal following -peristomal skin with breakdown around immediate peristomal skin extending 1 cm, and skin under adhesive reddened without sign of denudement or fungal infection, non tender to [place] at this time -sutures soft, MCJ intact, 9 olcock slightly epiboled in, will continue to monitor OSTOMY ASSESSMENT STOMA TYPE & LOCATION: RLQ DLI COLOR: beefy red MOISTURE: moist EDEMA: mild, reduced SIZE: 1 1/8 when pulled up, oval at rest LUMEN: loop, double lumen MUCOCUTANOUS JUNCTION: intact, will watch at 9 o'clock PROTRUSION: 1 cm FUNCTION: high output liq green PERISTOMAL HERNIA: slightly firm to medial aspect, reducible ABDOMEN: concave at rest, pannus fold inferiorly PERISTOMAL SKIN: MASD, redness NUTRITION: consulted, no diet order yet LABS: ALBUMIN 3.7 (06/23/24) WBC 18.8 H (07/10/24) PRESSURE INJURY RISK ASSESSMENT: Score 15-18 Mild Risk NUTRITION: Consulted BOWEL/BLADDER STATUS: continent of urine, diverting loop ileostomy DEVICES: IV, pouching system MATTRESS/BED: Standard hospital mattress -- Custom Care is appropriate SITTING SURFACES: Recommend using a Curve Cushion when out of bed on bedside chair and w/c WOUND TREATMENT/INTERVENTIONS/PLAN OF CARE: ACTIVITY ORDERS/RECOMMENDATIONS: no restrictions related to wound care at this time Ileostomy Pouching: MWF by WOC, PRN by Nursing -Anayeli New Image Red System, 2 piece (convex barrier), High Output pouch - two spare systems in room - Remove system, clean skin with tap water and gauze, dry well, see crusting below - pull up to round out stoma, place argenis cohesive seal snug to stoma - apply barrier [id number], snap together with high output pouch [id number] - close tap with plug - add [id number] to prevent ballooning from gas - okay to attach to bedside drainage bag *WOC to downsize to Green System at next visit *use everett stock pouch with argenis ring if out of pouches before Tuesday PRIOR to pouching, use crusting technique to damaged periwound skin PRN: (1) dust with stomahesive powder, (2) brush away with dry gauze, (3) dab skin prep over powder to seal in, (4) repeat three times PRESSURE INJURY PREVENTION: ordered 1) Daily skin inspection 2) Repositioning in [...] Mepilex DAILY PRN if soiled or unsalvageable. - Float heels with a HEEL CARD LACER while in bed - ROOKE BOOTS; do not ambulate in ROOKE boots - Send HEEL home service advisor with upon discharge GOALS: - maintain skin integrity NEXT STEPS: - plan to see again Tuesday for ongoing ostomy teaching, Vet would like to shower beforehand - will bring Green System High Output Pouch, 2 pc, convexity EDUCATION: -crusting DISCHARGE PLANNING TBD, will potentially need high output pouch for home SUPPLIES: TBD, has cut to fit system in orders for 1 year supply of refills, appropriate for use FOLLOW UP: - WOC will continue to follow MWF for new ostomy education /es/ EARLENE PATHAK, RN, CWOCN Certified Wound, Ostomy, Continence Nurse Signed: 07/16/2024 15:34 MARTI LAYTON [facility] Jul 16, 2024 12:23 PM TREATMENT PLAN INTERDISCIPLINARY NOTE: LOCAL TITLE: ITP INTERDISCIPLINARY TREATMENT PLAN STANDARD TITLE: TREATMENT PLAN INTERDISCIPLINARY NOTE DATE OF NOTE: JUL 16, 2024@12:23 ENTRY DATE: JUL 16, 2024@12:23:58 AUTHOR: MONAE SIDDIQUI EXP COSIGNER: URGENCY: STATUS: COMPLETED ITP INTERDISCIPLINARY TREATMENT PLAN Has ADDENDA Interdisciplinary Treatment Plan (ITP) Date of current Admission: Jun Medical problems to be addressed, including reason for admission as well as all active medical problems: 1. sepsis At risk indicators at time of admission: Pain noted other than 0 on 0-10 pain scale, Functional screen indicates need for adaptive device for mobility/PT consult sent Support services in community: Current living situation: Lives with others (indicate who in comments) Patient/Family input to care: nimo mckeon. Patient Goals:return home Treatment plan/Interventions: Encourage activity as tolerated., Educated Patient on use of Pain Scale, Perform Range of Motion Exercises when turning/repositioning., Use stable shoes or treaded slippers, and use glasses and hearing aids if indicated., Place fall control officer the Kardex., Utilize bed alarm if indicated. Measurable Outcomes: Patient will verablize understanding of the 0-10 pain scale., Patient will deny pain or report that pain is managed at an acceptable level., Patient will not fall during hospitalization., Skin will remain intact/or no further breakdown., Patient will maintain/improve their physical mobility and an Occupational Therapy Consult will be completed., Patient will maintain/improve their physical mobility and an Physical Therapy Consult will be completed., Patient will maintain maximum level of function., Patient will maintain appropriate behavior with staff. Discharge Plan: Patient will return home. Anticipated resources needed for discharge: No anticipated resources needed at this time. Anticipated educational needs: Tests/treatments/procedures: risks and benefits, disease process, medication management, and discharge instructions. Participants: patient, family, nursing staff, medicine team and therapies Transportation needs: TBD Plan of care shared with patient/family and verbalized with understanding. /alexi/ MONAE SIDDIQUI RN RN Signed: 07/16/2024 12:26 07/21/2024 ADDENDUM STATUS: COMPLETED Resolution to ITP Patient will verablize understanding of the 0-10 pain scale., met Patient will deny pain or report that pain is managed at an acceptable level., ongoing Patient will not fall during hospitalization., met Skin will remain intact/or no further breakdown.,met Patient will maintain/improve their physical mobility and an Occupational Therapy Consult will be completed., ongoing Patient will maintain/improve their physical mobility and an Physical Therapy Consult will be completed., ongoing Patient will maintain maximum level of function., ongoing Patient will maintain appropriate behavior with staff. not met /alexi/ MARTI JONES RN STAFF NURSE Signed: 07/21/2024 14:37 MONAE SIDDIQUI [facility] Jul 16, 2024 12:20 PM NURSING NOTE: LOCAL TITLE: [facility] SKIN INSPECTION/ASSESSMENT STANDARD TITLE: NURSING NOTE DATE OF NOTE: JUL 16, 2024@12:20 ENTRY DATE: JUL 16, 2024@12:20:28 AUTHOR: MONAE SIDDIQUI EXP COSIGNER: URGENCY: STATUS: COMPLETED VAAES SKIN INSPECTION/ASSESSMENT Has ADDENDA Assessment Type: INITIAL SKIN INSPECTION/ASSESSMENT SKIN INSPECTION: Skin Color: Usual for ethnicity Skin Temperature: Warm Skin Moisture: Normal Skin Turgor: Non-Elastic Neel Skin Assessment: The patient's Neel Scale Score is 17. The patient is at mild risk for [...] Adequate. Friction and shear Potential problem. INTERVENTIONS: New or changed pressure ulcer/injury interventions or medical condition. Education: Provide patient/caregiver education regarding causes and prevention of pressure ulcers/injuries. Provide patient/caregiver education regarding treatment plan for pressure ulcers/injuries. Pressure-Redistribution measures: Elevate heels using pillows, foam blocks, or offloading boots Encourage small, frequent position changes Individualized repositioning while out of bed to chair/wheelchair Use of pressure redistribution chair/wheelchair cushion/surface Maximize mobilization: Encourage activity as tolerated Individualized repositioning while out of bed to chair/wheelchair Limit sitting out of bed to less than two hours at a time Manage moisture: Instruct patient/resident/caregiver to request assistance as needed Maintain clean and dry skin No more than one linen layer below the patient/resident Manage nutrition: Encourage eating and assist with meals Offer liquids every two hours when turning patient or as needed Provide or encourage oral care prn Reduce friction and shear: Elevate head of bed for meals, then lower within one hour after eating (unless contraindicated) Keep head of bed at or below 30 degrees when not eating Raise the knee when elevating head of bed RISK FACTORS THAT INCREASE RISK FOR DEVELOPING PRESSURE INJURIES: The patient/resident has the following: Device(s): (nasogastric tubes, oxygen tubing, urinary catheters, cell phone etc.) Comment: ostomy Neuropathy Potential compromised nutritional status Incision and Flaps: Incision 1: Location: abdominal incision midline Status: Edges well approximated Closure: Jeannine Stabilization: None Surrounding tissue: Erythema Wound drainage none. Dressing type: Open to air OSTOMY: GASTROINTESTINAL: Type: Location(s): right lower abdomen Colostomy Stoma: Established Stoma Description: [place] Surrounding tissue: Moist Ostomy Management: Hygiene completed Total Assist /alexi/ MONAE SIDDIQUI RN RN Signed: 07/16/2024 12:23 07/16/2024 ADDENDUM STATUS: COMPLETED RN was present when the WOC RN removed ostomy back to change to a better system. Redness noticed around the stoma. Stoma was bright red. patient complained of slight tenderness around the stoma site. Rn assisted WOC RN with changing the ostomy bag. the patient tolerated the ostomy change. /alexi/ MONAE SIDDIQUI RN RN Signed: 07/16/2024 20:38 MONAE SIDDIQUI [facility] Jul 16, 2024 12:13 PM NURSING ADMISSION EVALUATION NOTE: LOCAL TITLE: [facility]UTE INPATIENT NSG ADMISSION SCREEN STANDARD TITLE: NURSING ADMISSION EVALUATION NOTE DATE OF NOTE: JUL 16, 2024@12:13 ENTRY DATE: JUL 16, 2024@12:13:42 AUTHOR: MONAE SIDDIQUI EXP COSIGNER: URGENCY: STATUS: COMPLETED ===== ALLERGY/ADVERSE DRUG REACTION (ADR) REVIEW (MRT5) ===== FACILITY ALLERGY/ADR -------- No Remote Allergy/ADR Data available for this patient [facility] [place] Allergy/Adverse Drug Reaction Review to be conducted by: Nurse: Results of Allergy/ADR Review: Allergy/Adverse Drug Reaction list confirmed. ==== MEDICATION REVIEW (MRR1) ==== Did patient bring medication(s) from home? No ==== GENERAL INFORMATION ==== Admission information given by: Patient Is there a legal guardian/conservator? No Preferred language for discussing healthcare: Kinyarwanda Preferred mode of communication: Verbal Items at Bedside: Dentures: upper Other: cell phone, glasses, clothing ===== INFECTIOUS DISEASE RISK SCREEN ===== Travel Screen: Have you traveled within the [place] within the last 21 days? No Have you traveled outside the [place] within the last 21 days? No Within the last 14 days, have you had: No known exposure Other Exposure to Infectious Disease: No known exposure Patient reported the following symptoms: Diarrhea Nausea Vomiting History of Multiple Drug Resistant Organism (MDRO): No ===== NUTRITION SCREENING ===== Malnutrition Screening Lost weight recently without trying: Yes: Amount weight lost: Greater than 15 kg (34 lbs) (4 points) Have you been eating poorly because of decreased appetite? Yes (1 point) Total Score: 5 Other Nutrition Screening Questions: The patient does [...] special dietary needs, or ethnic, cultural or holiness preferences that would affect their dietary needs. A Registered Dietitian consult/notification was placed. Food Insecurity Screening Within the past 12 months, you worried whether your food would run out before you got money to buy more. Never true Within the past 12 months, the food you bought just did not last you and you did not have the money to get more. Never true Food Insecurity Disposition: ==== RISK SCREENINGS ==== Alcohol Screen: Screen to be completed by: Nurse: SCREEN FOR ALCOHOL (AUDIT-C) An alcohol screening test (AUDIT-C) was negative (score=1). 1. How often did you have a [...] on one occasion in the past year? *Does the patient consume alcohol? No Tobacco Use: Former - tobacco user Do you currently or [...] desire to leave. === SUICIDE SCREEN === [place] Suicide Severity Rating Scale (C-SSRS) 1. Over [...] to other questions. C-SSRS Screen is Negative ==== EXPOSURE TO [...] Directive: No === SPIRITUALITY === Are there holiness practices or spiritual concerns you want the rejector, your provider, and other health care team members to know? No ==== ANTICIPATED DISCHARGE NEEDS ==== Where do you live? Housing owned/rented by [place]: Method of transportation upon discharge: Private Vehicle: Are there any anticipated barriers to discharge? No === EDUCATIONAL NEEDS/LEARNING STYLE === Barriers to learning: None evident Patient learning style preferences: None ==== VISITOR INFORMATION ==== Will you have a primary support person while in the hospital? Yes: Relationship to patient: friend Visitor Name: NIMO STEPHENSON Contact Number: Patient's Visitor Restriction preferences: No Privacy Review: Discussed with patient who may receive health information and the need for that identified person to provide a passcode for the staff to discuss. [id number] Passcode provided to patient ====== GARCIA FALL SCALE & TIPS PROGRAM ====== Garcia Fall Scale: The Garcia Fall scale was performed and score was 60. This is indicative of high risk for falls. History of falling: immediate or within 3 months? No Secondary diagnosis: Yes Ambulatory aid: Crutches/cane(s)/walker Intravenous therapy/Heparin lock: Yes Gait/Transferring: Weakness Mental Status: Oriented to own ability/knows own limitations Fall Tailoring Interventions for Patient Safety (TIPS) Fall TIPS initiated with patient: Yes Interventions: Communicate recent fall or risk of harm Walking Aids: Walker Assistance out of bed: Call for assistance before getting out of bed ===== ASPIRATION RISK ASSESSMENT AND SWALLOW SCREEN ===== Aspiration Risk(s): Screening complete. No aspiration risk identified. Bedside Swallow Screen not indicated. ====== PAIN ASSESSMENT ====== Patient's acceptable pain goal: 0 No pain Are you currently experiencing pain? No: Pain Score: 0 /alexi/ MONAE SIDDIQUI RN RN Signed: 07/16/2024 12:20 MONAE SIDDIQUI [facility] Jul 10, 2024 05:45 PM SCANNED REPORT: LOCAL TITLE: TELEMETRY RHYTHM STRIPS STANDARD TITLE: SCANNED REPORT DATE OF NOTE: JUL 10, 2024@17:45 ENTRY DATE: JUL 18, 2024@17:45:42 AUTHOR: TALIB MACKEY EXP COSIGNER: URGENCY: STATUS: COMPLETED [facility]. /alexi/ TALIB MACKEY Janitor Supervisor Signed: 07/18/2024 17:46 TALIB MACKEY [facility]
--- OUTSIDE RECORDS SUMMARY | 2024-08-01 07:54 | XMS_ITS ---
[place] DAILY HOSPITALIZATION DATA [facility] Encounter Summary Created on: August 01, 2024 MEG FLACADARCI LOBO : 1950 Sex: Male Author Name [facility] Address [address] [place] [address] Care Team Providers Care Social Security Specialist Name Role Phone JATINDER CABRERA Primary [...] PART A Sep 29, 2016 PART A [id number] [phone] JUDY WEAVER PATIENT Selected Encounter This section includes the information on record at [place] for the Encounter. Date/Time Encounter Type Encounter Description Reason Pro vider Source Jul 16, 2024 12:13 PM Inpatient Visit DAILY HOSPITALIZATION DATA [facility] [...] of theEncounter. The data comes from all [place] treatment facilities. Test Date/Time Test Type Test Details Facility Name Jun 08, 2024 09:57 AM Laboratory - Chemi stry Order URINALYSIS URINE WC ONCE [facility] Jun 12, 2024 12:00 AM Laboratory - Chemi stry Order BNP PLASMA SP ONCE [facility] Jun 21, 2024 05:45 PM Laboratory - Blood Bank Order TYPE & SCREEN - LAB BLOOD WC [facility] Jul 03, 2024 12:00 AM Laboratory - Blood Bank Order TYPE & SCREEN - LAB BLOOD WC [facility] Jul 16, 2024 12:00 AM Laboratory - Chemi stry Order CBC BLOOD SP ONCE [facility] Jul 17, 2024 12:00 AM Laboratory - Chemi stry Order BASIC METABOLIC PANEL+MG PLASMA SP ONCE [facility] Lab Results: +/- 30 days [...] Range Comment Jul 21, 2024 10:38 AM [facility] BASIC METABOLIC PANEL+MG Specimen Type: PLASMA No comment entered. Ordering Provider: SARAI GOLDEN Report Released Date/Time: Jul 20, 2024 06:50 PM Reporting Lab: [facility] [address] Performing Lab: [facility] [address] CREATININE 0.8 mg/dL 0.7-1.2 UREA NITROGEN 31 mg/dL H 8-26 GLUCOSE 120 mg/dL H 70-100 SODIUM 125 mmol/L L 136-145 POTASSIUM 4.4 mmol/L 3.5-5.1 CHLORIDE 100 mmol/L 98-107 CO2 17 mmol/L L 22-29 CALCIUM 9.6 mg/dL 8.4-10.2 MAGNESIUM 1.9 mg/dL 1.6-2.6 ANION GAP 8 mmol/L 5-15 .CREAT EGFR(CKD-EPI) >90 >60 Jul 21, 2024 10:38 AM [facility] CBC Specimen Type: BLOOD No comment entered. Ordering Provider: SARAI GOLDEN Report Released Date/Time: Jul 20, 2024 06:50 PM Reporting Lab: [facility] [address] Performing Lab: [facility] [address] WBC 16.0 H 4.0-11.0 RBC 5.16 4.60-6.20 HGB 15.8 g/dL 13.5-17.9 HCT 45.5 41.0-54.0 MCV 88.2 fL 80.0-100.0 MCH 30.6 pg 27.0-33.0 MCHC 34.7 g/dL 32.0-37.5 PLT 428 H 150-400 MPV 10.8 fL 9.1-13.0 RDW 13.6 11.5-14.5 Jul 20, 2024 01:00 PM [facility] SODIUM,URINE RANDOM Specimen Type: URINE No comment entered. Ordering Provider: SARAI GOLDEN Report Released Date/Time: Jul 20, 2024 08:22 AM Reporting Lab: [facility] [address] Performing Lab: [facility] [address] SODIUM,URINE RANDOM <20 mmol/L Jul 20, 2024 01:00 PM [facility] OSMOLALITY,URINE Specimen Type: URINE No comment entered. Ordering Provider: SARAI GOLDEN Report Released Date/Time: Jul 20, 2024 08:22 AM Reporting Lab: [facility] [address] Performing Lab: [facility] [address] OSMOLALITY,URIN E 648 mosm/kg 500-800 Jul 20, 2024 06:45 AM [facility] BASIC METABOLIC PANEL+MG Specimen Type: PLASMA No comment entered. Ordering Provider: SARAI GOLDEN Report Released Date/Time: Jul 19, 2024 06:13 PM Reporting Lab: [facility] [address] Performing Lab: [facility] [address] CREATININE 0.8 mg/dL 0.7-1.2 UREA NITROGEN 36 mg/dL H 8-26 GLUCOSE 111 mg/dL H 70-100 SODIUM 121 mmol/L L 136-145 POTASSIUM 4.1 mmol/L 3.5-5.1 CHLORIDE 99 mmol/L 98-107 CO2 14 mmol/L L 22-29 CALCIUM 9.5 mg/dL 8.4-10.2 MAGNESIUM 1.8 mg/dL 1.6-2.6 ANION GAP 8 mmol/L 5-15 .CREAT EGFR(CKD-EPI) >90 >60 Jul 20, 2024 06:43 AM [facility] CBC & DIFF Specimen Type: BLOOD Comment: Automated Differential Performed Ordering Provider: SARAI GOLDEN Report Released Date/Time: Jul 19, 2024 06:13 PM Reporting Lab: [facility] [address] Performing Lab: [facility] [address] WBC 16.6 H 4.0-11.0 RBC 4.96 4.60-6.20 [...] H 0.0-0.1 Jul 20, 2024 05:30 AM [facility] OSMOLALITY,SERUM Specimen Type: SERUM No comment entered. Ordering Provider: SARAI GOLDEN Report Released Date/Time: Jul 20, 2024 09:47 AM Reporting Lab: [facility] [address] Performing Lab: [facility] [address] OSMOLALITY,SERU M 266 mosm/kg L 276-305 Jul 19, 2024 08:57 AM [facility] BASIC METABOLIC PANEL+MG Specimen Type: PLASMA No comment entered. Ordering Provider: SARAI GOLDEN Report Released Date/Time: Jul 18, 2024 10:24 PM Reporting Lab: [facility] [address] Performing Lab: [facility] [address] CREATININE 1.0 mg/dL 0.7-1.2 UREA NITROGEN 40 mg/dL H 8-26 GLUCOSE 104 mg/dL H 70-100 SODIUM 129 mmol/L L 136-145 POTASSIUM 3.3 mmol/L L 3.5-5.1 CHLORIDE 104 mmol/L 98-107 CO2 16 mmol/L L 22-29 CALCIUM 8.0 mg/dL L 8.4-10.2 MAGNESIUM 1.7 mg/dL 1.6-2.6 ANION GAP 9 mmol/L 5-15 .CREAT EGFR(CKD-EPI) 80 >60 Jul 19, 2024 08:57 AM [facility] CBC Specimen Type: BLOOD No comment entered. Ordering Provider: SARAI GOLDEN Report Released Date/Time: Jul 18, 2024 10:24 PM Reporting Lab: [facility] [address] Performing Lab: [facility] [address] WBC 17.3 H 4.0-11.0 RBC 4.83 4.60-6.20 HGB 14.8 g/dL 13.5-17.9 HCT 42.6 41.0-54.0 MCV 88.2 fL 80.0-100.0 MCH 30.6 pg 27.0-33.0 MCHC 34.7 g/dL 32.0-37.5 PLT 456 H 150-400 MPV 10.8 fL 9.1-13.0 RDW 13.7 11.5-14.5 Jul 17, 2024 06:55 PM [facility] PHOSPHORUS Specimen Type: PLASMA No comment entered. Ordering Provider: SARAI GOLDEN Report Released Date/Time: Jul 17, 2024 01:54 PM Reporting Lab: [facility] [address] Performing Lab: [facility] [address] PHOSPHORUS 2.9 mg/dL 2.3-4.3 Jul 17, 2024 06:55 PM [facility] BASIC METABOLIC PANEL+MG Specimen Type: PLASMA No comment entered. Ordering Provider: SARAI GOLDEN Report Released Date/Time: Jul 17, 2024 01:54 PM Reporting Lab: [facility] [address] Performing Lab: [facility] [address] CREATININE 1.2 mg/dL 0.7-1.2 UREA NITROGEN 62 mg/dL H 8-26 GLUCOSE 116 mg/dL H 70-100 SODIUM 128 mmol/L L 136-145 POTASSIUM 3.8 mmol/L 3.5-5.1 CHLORIDE 100 mmol/L 98-107 CO2 16 mmol/L L 22-29 CALCIUM 9.3 mg/dL 8.4-10.2 MAGNESIUM 2.1 mg/dL 1.6-2.6 ANION GAP 12 mmol/L 5-15 .CREAT EGFR(CKD-EPI) 64 >60 Jul 17, 2024 07:00 AM [facility] CBC & DIFF Specimen Type: BLOOD Comment: Manual Differential Performed Ordering Provider: SARAI GOLDEN Report Released Date/Time: Jul 16, 2024 04:52 PM Reporting Lab: [facility] [address] Performing Lab: [facility] [address] WBC 18.9 H 4.0-11.0 RBC 5.55 4.60-6.20 [...] MORPHOLOGY PRESENT Jul 17, 2024 07:00 AM [facility] ALBUMIN Specimen Type: PLASMA No comment entered. Ordering Provider: SARAI GOLDEN Report Released Date/Time: Jul 16, 2024 12:12 PM Reporting Lab: [facility] [address] Performing Lab: [facility] [address] ALBUMIN 4.3 g/dL 3.5-5.0 Jul 17, 2024 07:00 AM [facility] COMPREHENSIVE METABOLIC PANEL+MG Specimen Type: PLASMA No comment entered. Ordering Provider: SARAI GOLDEN Report Released Date/Time: Jul 16, 2024 04:52 PM Reporting Lab: [facility] [address] Performing Lab: [facility] [address] CREATININE 1.3 mg/dL H 0.7-1.2 UREA NITROGEN [...] L >60 Jul 16, 2024 07:10 PM [facility] LACTIC ACID Specimen Type: PLASMA No comment entered. Ordering Provider: SARAI GOLDEN Report Released Date/Time: Jul 16, 2024 12:12 PM Reporting Lab: [facility] [address] Performing Lab: [facility] [address] LACTIC ACID 0.9 mmol/L 0.5-2.2 Jul 16, 2024 02:14 PM [facility] MRSA SURVL NARES DNA Specimen Type: NARES No comment entered. Ordering Provider: SARAI GOLDEN Report Released Date/Time: Jul 16, 2024 12:12 PM Reporting Lab: [facility] [address] Performing Lab: [facility] [address] MRSA SURVL NARES DNA NEGATIVE Negative Jul 16, 2024 02:10 PM [facility] LACTIC ACID Specimen Type: PLASMA No comment entered. Ordering Provider: SARAI GOLDEN Report Released Date/Time: Jul 16, 2024 12:12 PM Reporting Lab: [facility] [address] Performing Lab: [facility] [address] LACTIC ACID 0.9 mmol/L 0.5-2.2 Jul 16, 2024 02:08 PM [facility] COMPREHENSIVE METABOLIC PANEL+MG Specimen Type: PLASMA No comment entered. Ordering Provider: SARAI GOLDEN Report Released Date/Time: Jul 16, 2024 12:12 PM Reporting Lab: [facility] [address] Performing Lab: [facility] [address] CREATININE 2.0 mg/dL H 0.7-1.2 UREA NITROGEN [...] L >60 Jul 16, 2024 02:08 PM [facility] CBC & DIFF Specimen Type: BLOOD Comment: Manual Differential Performed Ordering Provider: SARAI GOLDEN Report Released Date/Time: Jul 16, 2024 12:12 PM Reporting Lab: [facility] [address] Performing Lab: [facility] [address] WBC 19.7 H 4.0-11.0 RBC 5.39 4.60-6.20 [...] MORPHOLOGY PRESENT Jul 10, 2024 07:16 AM [facility] PHOSPHORUS Specimen Type: PLASMA No comment entered. Ordering Provider: JUANCARLOS ECHOLS Report Released Date/Time: Jul 09, 2024 12:23 PM Reporting Lab: [facility] [address] Performing Lab: [facility] [address] PHOSPHORUS 3.0 mg/dL 2.3-4.3 Jul 10, 2024 07:16 AM [facility] BASIC METABOLIC PANEL+MG Specimen Type: PLASMA No comment entered. Ordering Provider: JUANCARLOS ECHOLS S Report Released Date/Time: Jul 09, 2024 12:23 PM Reporting Lab: [facility] [address] Performing Lab: [facility] [address] CREATININE 0.7 mg/dL 0.7-1.2 UREA NITROGEN 27 mg/dL H 8-26 GLUCOSE 104 mg/dL H 70-100 SODIUM 133 mmol/L L 136-145 POTASSIUM 4.3 mmol/L 3.5-5.1 CHLORIDE 102 mmol/L 98-107 CO2 19 mmol/L L 22-29 CALCIUM 10.1 mg/dL 8.4-10.2 MAGNESIUM 1.9 mg/dL 1.6-2.6 ANION GAP 12 mmol/L 5-15 .CREAT EGFR(CKD-EPI) >90 >60 Jul 10, 2024 07:15 AM [facility] CBC Specimen Type: BLOOD No comment entered. Ordering Provider: JUANCARLOS ECHOLS Report Released Date/Time: Jul 09, 2024 12:23 PM Reporting Lab: [facility] [address] Performing Lab: [facility] [address] WBC 18.8 H 4.0-11.0 RBC 5.08 4.60-6.20 HGB 15.9 g/dL 13.5-17.9 HCT 46.8 41.0-54.0 MCV 92.1 fL 80.0-100.0 MCH 31.3 pg 27.0-33.0 MCHC 34.0 g/dL 32.0-37.5 PLT 479 H 150-400 MPV 10.2 fL 9.1-13.0 RDW 13.7 11.5-14.5 Jul 09, 2024 07:08 AM [facility] CBC Specimen Type: BLOOD No comment entered. Ordering Provider: QUYNH WEISS Report Released Date/Time: Jul 08, 2024 06:18 PM Reporting Lab: [facility] [address] Performing Lab: [facility] [address] WBC 15.3 H 4.0-11.0 RBC 4.91 4.60-6.20 HGB 15.1 g/dL 13.5-17.9 HCT 45.7 41.0-54.0 MCV 93.1 fL 80.0-100.0 MCH 30.8 pg 27.0-33.0 MCHC 33.0 g/dL 32.0-37.5 PLT 443 H 150-400 MPV 10.0 fL 9.1-13.0 RDW 13.5 11.5-14.5 Jul 08, 2024 10:50 AM [facility] URINALYSIS Specimen Type: URINE No comment entered. Ordering Provider: KATELYNN PERSON Report Released Date/Time: Jul 08, 2024 08:41 AM Reporting Lab: [facility] [address] Performing Lab: [facility] [address] URINE COLOR YELLOW SPECIFIC GRAVITY >1.050 H [...] NEGATIVE NEGATIVE Jul 08, 2024 09:54 AM [facility] CBC Specimen Type: BLOOD Comment: Specimen received in Lab at: [id number] Ordering Provider: JUANCARLOS ECHOLS Report Released Date/Time: Jul 07, 2024 04:49 PM Reporting Lab: [facility] [address] Performing Lab: [facility] [address] WBC 17.5 H 4.0-11.0 RBC 4.88 4.60-6.20 HGB 14.9 g/dL 13.5-17.9 HCT 45.7 41.0-54.0 MCV 93.6 fL 80.0-100.0 MCH 30.5 pg 27.0-33.0 MCHC 32.6 g/dL 32.0-37.5 PLT 472 H 150-400 MPV 10.2 fL 9.1-13.0 RDW 13.7 11.5-14.5 Jul 08, 2024 09:54 AM [facility] PHOSPHORUS Specimen Type: PLASMA Comment: Specimen received in Lab at: [id number] Ordering Provider: JUANCARLOS ECHOLS Report Released Date/Time: Jul 07, 2024 04:49 PM Reporting Lab: [facility] [address] Performing Lab: [facility] [address] PHOSPHORUS 2.6 mg/dL 2.3-4.3 Jul 08, 2024 09:54 AM [facility] BASIC METABOLIC PANEL+MG Specimen Type: PLASMA Comment: Specimen received in Lab at: [id number] Ordering Provider: JUANCARLOS ECHOLS Report Released Date/Time: Jul 07, 2024 04:49 PM Reporting Lab: [facility] [address] Performing Lab: [facility] [address] CREATININE 0.9 mg/dL 0.7-1.2 UREA NITROGEN 26 mg/dL 8-26 GLUCOSE 128 mg/dL H 70-100 SODIUM 134 mmol/L L 136-145 POTASSIUM 3.4 mmol/L L 3.5-5.1 CHLORIDE 100 mmol/L 98-107 CO2 24 mmol/L 22-29 CALCIUM 9.8 mg/dL 8.4-10.2 MAGNESIUM 1.8 mg/dL 1.6-2.6 ANION GAP 10 mmol/L 5-15 .CREAT EGFR(CKD-EPI) >90 >60 Jul 07, 2024 02:00 PM [facility] C DIFF PANEL Specimen Type: FECES No comment entered. Ordering Provider: JEVON ZAZUETA Report Released Date/Time: Jul 07, 2024 12:26 PM Reporting Lab: [facility] [address] Performing Lab: [facility] [address] C DIFF TOX B GENE PCR NEGATIVE Negative Jul 07, 2024 07:41 AM [facility] PHOSPHORUS Specimen Type: PLASMA No comment entered. Ordering Provider: JEVON ZAZUETA Report Released Date/Time: Jul 06, 2024 03:44 PM Reporting Lab: [facility] [address] Performing Lab: [facility] [address] PHOSPHORUS 3.1 mg/dL 2.3-4.3 Jul 07, 2024 07:41 AM [facility] BASIC METABOLIC PANEL+MG Specimen Type: PLASMA No comment entered. Ordering Provider: JEVON ZAZUETA Report Released Date/Time: Jul 06, 2024 03:44 PM Reporting Lab: [facility] [address] Performing Lab: [facility] [address] CREATININE 0.9 mg/dL 0.7-1.2 UREA NITROGEN 20 mg/dL 8-26 GLUCOSE 157 mg/dL H 70-100 SODIUM 136 mmol/L 136-145 POTASSIUM 3.7 mmol/L 3.5-5.1 CHLORIDE 102 mmol/L 98-107 CO2 21 mmol/L L 22-29 CALCIUM 9.8 mg/dL 8.4-10.2 MAGNESIUM 1.9 mg/dL 1.6-2.6 ANION GAP 13 mmol/L 5-15 .CREAT EGFR(CKD-EPI) >90 >60 Jul 07, 2024 07:40 AM [facility] CBC Specimen Type: BLOOD No comment entered. Ordering Provider: JEVON ZAZUETA Report Released Date/Time: Jul 06, 2024 03:44 PM Reporting Lab: [facility] [address] Performing Lab: [facility] [address] WBC 21.2 H 4.0-11.0 RBC 5.09 4.60-6.20 HGB 15.9 g/dL 13.5-17.9 HCT 48.3 41.0-54.0 MCV 94.9 fL 80.0-100.0 MCH 31.2 pg 27.0-33.0 MCHC 32.9 g/dL 32.0-37.5 PLT 500 H 150-400 MPV 10.3 fL 9.1-13.0 RDW 13.6 11.5-14.5 Jul 06, 2024 07:21 AM [facility] CBC Specimen Type: BLOOD No comment entered. Ordering Provider: JEVON ZAZUETA Report Released Date/Time: Jul 05, 2024 01:22 PM Reporting Lab: [facility] [address] Performing Lab: [facility] [address] WBC 18.0 H 4.0-11.0 RBC 4.83 4.60-6.20 HGB 14.6 g/dL 13.5-17.9 HCT 45.5 41.0-54.0 MCV 94.2 fL 80.0-100.0 MCH 30.2 pg 27.0-33.0 MCHC 32.1 g/dL 32.0-37.5 PLT 368 150-400 MPV 10.4 fL 9.1-13.0 RDW 13.6 11.5-14.5 Jul 06, 2024 07:21 AM [facility] PHOSPHORUS Specimen Type: PLASMA No comment entered. Ordering Provider: JEVON ZAZUETA Report Released Date/Time: Jul 05, 2024 01:22 PM Reporting Lab: [facility] [address] Performing Lab: [facility] [address] PHOSPHORUS 3.6 mg/dL 2.3-4.3 Jul 06, 2024 07:21 AM [facility] BASIC METABOLIC PANEL+MG Specimen Type: PLASMA No comment entered. Ordering Provider: JEVON ZAZUETA Report Released Date/Time: Jul 05, 2024 01:22 PM Reporting Lab: [facility] [address] Performing Lab: [facility] [address] CREATININE 0.7 mg/dL 0.7-1.2 UREA NITROGEN 12 mg/dL 8-26 GLUCOSE 108 mg/dL H 70-100 SODIUM 138 mmol/L 136-145 POTASSIUM 3.4 mmol/L L 3.5-5.1 CHLORIDE 104 mmol/L 98-107 CO2 20 mmol/L L 22-29 CALCIUM 9.3 mg/dL 8.4-10.2 MAGNESIUM 1.9 mg/dL 1.6-2.6 ANION GAP 14 mmol/L 5-15 .CREAT EGFR(CKD-EPI) >90 >60 Jul 05, 2024 07:17 AM [facility] MAGNESIUM Specimen Type: PLASMA No comment entered. Ordering Provider: JUANCARLOS ECHOLS S Report Released Date/Time: Jul 04, 2024 09:39 AM Reporting Lab: [facility] [address] Performing Lab: [facility] [address] MAGNESIUM 2.0 mg/dL 1.6-2.6 Jul 05, 2024 07:17 AM [facility] PHOSPHORUS Specimen Type: PLASMA No comment entered. Ordering Provider: JUANCARLOS ECHOLS S Report Released Date/Time: Jul 04, 2024 09:39 AM Reporting Lab: [facility] [address] Performing Lab: [facility] [address] PHOSPHORUS 2.0 mg/dL L 2.3-4.3 Jul 05, 2024 07:17 AM [facility] BASIC METABOLIC PANEL+MG Specimen Type: PLASMA No comment entered. Ordering Provider: JUANCARLOS ECHOLS S Report Released Date/Time: Jul 04, 2024 09:39 AM Reporting Lab: [facility] [address] Performing Lab: [facility] [address] CREATININE 0.7 mg/dL 0.7-1.2 UREA NITROGEN 12 mg/dL 8-26 GLUCOSE 84 mg/dL 70-100 SODIUM 135 mmol/L L 136-145 POTASSIUM 3.8 mmol/L 3.5-5.1 CHLORIDE 104 mmol/L 98-107 CO2 24 mmol/L 22-29 CALCIUM 9.3 mg/dL 8.4-10.2 MAGNESIUM 2.0 mg/dL 1.6-2.6 ANION GAP 7 mmol/L 5-15 .CREAT EGFR(CKD-EPI) >90 >60 Jul 05, 2024 07:16 AM [facility] CBC Specimen Type: BLOOD No comment entered. Ordering Provider: JUANCARLOS ECHOLS S Report Released Date/Time: Jul 04, 2024 09:39 AM Reporting Lab: [facility] [address] Performing Lab: [facility] [address] WBC 18.3 H 4.0-11.0 RBC 4.49 L 4.60-6.20 HGB 14.1 g/dL 13.5-17.9 HCT 43.4 41.0-54.0 MCV 96.7 fL 80.0-100.0 MCH 31.4 pg 27.0-33.0 MCHC 32.5 g/dL 32.0-37.5 PLT 317 150-400 MPV 10.0 fL 9.1-13.0 RDW 13.9 11.5-14.5 Jul 04, 2024 07:17 AM [facility] BASIC METABOLIC PANEL+MG Specimen Type: PLASMA No comment entered. Ordering Provider: GABINO CAMERON Report Released Date/Time: Jul 03, 2024 06:31 PM Reporting Lab: [facility] [address] Performing Lab: [facility] [address] CREATININE 0.7 mg/dL 0.7-1.2 UREA NITROGEN 16 mg/dL 8-26 GLUCOSE 129 mg/dL H 70-100 SODIUM 137 mmol/L 136-145 POTASSIUM 3.7 mmol/L 3.5-5.1 CHLORIDE 107 mmol/L 98-107 CO2 22 mmol/L 22-29 CALCIUM 9.0 mg/dL 8.4-10.2 MAGNESIUM 1.9 mg/dL 1.6-2.6 ANION GAP 8 mmol/L 5-15 .CREAT EGFR(CKD-EPI) >90 >60 Jul 04, 2024 07:17 AM [facility] PHOSPHORUS Specimen Type: PLASMA No comment entered. Ordering Provider: GABINO CAMERON Report Released Date/Time: Jul 03, 2024 06:31 PM Reporting Lab: [facility] [address] Performing Lab: [facility] [address] PHOSPHORUS 2.8 mg/dL 2.3-4.3 Jul 04, 2024 07:16 AM [facility] CBC Specimen Type: BLOOD No comment entered. Ordering Provider: GABINO CAMERON Report Released Date/Time: Jul 03, 2024 06:31 PM Reporting Lab: [facility] [address] Performing Lab: [facility] [address] WBC 20.6 H 4.0-11.0 RBC 4.63 4.60-6.20 HGB 14.2 g/dL 13.5-17.9 HCT 43.4 41.0-54.0 MCV 93.7 fL 80.0-100.0 MCH 30.7 pg 27.0-33.0 MCHC 32.7 g/dL 32.0-37.5 PLT 329 150-400 MPV 10.4 fL 9.1-13.0 RDW 13.8 11.5-14.5 Jul 04, 2024 07:16 AM [facility] CBC & DIFF Specimen Type: BLOOD Comment: Manual Differential Performed Ordering Provider: GABINO CAMERON Report Released Date/Time: Jul 03, 2024 06:31 PM Reporting Lab: [facility] [address] Performing Lab: [facility] [address] WBC 20.6 H 4.0-11.0 RBC 4.63 4.60-6.20 [...] MORPHOLOGY PRESENT Jul 04, 2024 07:15 AM [facility] BNP Specimen Type: PLASMA No comment entered. Ordering Provider: GABINO CAMERON Report Released Date/Time: Jul 03, 2024 06:31 PM Reporting Lab: [facility] [address] Performing Lab: [facility] [address] BNP 292 pg/mL H <99 Jul 03, 2024 10:32 PM [facility] FINGERSTICK GLUCOSE Specimen Type: BLOOD Comment: Save Result Nurse Notified Ordering Provider: KATELYNN PERSON Report Released Date/Time: Jul 03, 2024 10:50 PM Reporting Lab: [facility] [address] Performing Lab: [facility] [address] FINGERSTICK GLUCOSE 126 mg/dL H 70-100 Jul 03, 2024 05:33 PM [facility] FINGERSTICK GLUCOSE Specimen Type: BLOOD Comment: Save Result Nurse Notified Ordering Provider: KATELYNN PERSON Report Released Date/Time: Jul 03, 2024 05:46 PM Reporting Lab: [facility] [address] Performing Lab: [facility] [address] FINGERSTICK GLUCOSE 141 mg/dL H 70-100 Jul 03, 2024 02:31 PM [facility] POC ABG/ELECTROLYTES Specimen Type: ARTERIAL BLOOD Comment: FIO2 = 97% Patient Temp: 36.0 C Sample Type = ARTERIAL Ordering Provider: MAZIN ARREDONDO Report Released Date/Time: Jul 03, 2024 01:48 PM Reporting Lab: [facility] [address] Performing Lab: [facility] [address] POC PH 7.387 7.35-7.45 POC PCO2 34.4 [...] H 80.0-105.0 Jul 03, 2024 01:05 PM [facility] POC ABG/ELECTROLYTES Specimen Type: ARTERIAL BLOOD Comment: FIO2 = 53% Patient Temp: 36.2 C Sample Type = ARTERIAL Ordering Provider: MAZIN ARREDONDO Report Released Date/Time: Jul 03, 2024 01:48 PM Reporting Lab: [facility] [address] Performing Lab: [facility] [address] POC PH 7.280 L 7.35-7.45 POC PCO2 [...] mm[Hg] 80.0-105.0 Jul 03, 2024 06:15 AM [facility] URINALYSIS Specimen Type: URINE No comment entered. Ordering Provider: MARYBETH POWELL Report Released Date/Time: Jun 12, 2024 04:01 PM Reporting Lab: [facility] [address] Performing Lab: [facility] [address] URINE COLOR YELLOW SPECIFIC GRAVITY 1.031 1.003-1.03 [...] 250 NEGATIVE Jul 03, 2024 06:13 AM [facility] CBC Specimen Type: BLOOD No comment entered. Ordering Provider: MARYBETH POWELL Report Released Date/Time: Jun 12, 2024 03:59 PM Reporting Lab: [facility] [address] Performing Lab: [facility] [address] WBC 15.8 H 4.0-11.0 RBC 5.11 4.60-6.20 HGB 16.1 g/dL 13.5-17.9 HCT 49.1 41.0-54.0 MCV 96.1 fL 80.0-100.0 MCH 31.5 pg 27.0-33.0 MCHC 32.8 g/dL 32.0-37.5 PLT 357 150-400 MPV 9.8 fL 9.1-13.0 RDW 13.7 11.5-14.5 Jun 24, 2024 09:50 AM [facility] BASIC METABOLIC PANEL+MG Specimen Type: PLASMA Comment: Specimen received in Lab at: [id number] Ordering Provider: JEVON ZAZUETA Report Released Date/Time: Jun 23, 2024 06:07 PM Reporting Lab: [facility] [phone] Performing Lab: [facility] [address] CREATININE 0.8 mg/dL 0.7-1.2 UREA NITROGEN 13 mg/dL 8-26 GLUCOSE 135 mg/dL H 70-100 SODIUM 135 mmol/L L 136-145 POTASSIUM 3.6 mmol/L 3.5-5.1 CHLORIDE 103 mmol/L 98-107 CO2 24 mmol/L 22-29 CALCIUM 9.2 mg/dL 8.4-10.2 MAGNESIUM 1.9 mg/dL 1.6-2.6 ANION GAP 8 mmol/L 5-15 .CREAT EGFR(CKD-EPI) >90 >60 Jun 24, 2024 09:50 AM [facility] CBC Specimen Type: BLOOD Comment: Specimen received in Lab at: [id number] Ordering Provider: JEVON ZAZUETA Report Released Date/Time: Jun 23, 2024 06:07 PM Reporting Lab: [facility] [address] Performing Lab: [facility] [address] WBC 15.5 H 4.0-11.0 RBC 4.93 4.60-6.20 HGB 15.2 g/dL 13.5-17.9 HCT 46.5 41.0-54.0 MCV 94.3 fL 80.0-100.0 MCH 30.8 pg 27.0-33.0 MCHC 32.7 g/dL 32.0-37.5 PLT 223 150-400 MPV 11.4 fL 9.1-13.0 RDW 13.9 11.5-14.5 Jun 23, 2024 07:52 AM [facility] COMPREHENSIVE METABOLIC PANEL+MG Specimen Type: PLASMA No comment entered. Ordering Provider: JEVON ZAZUETA Report Released Date/Time: Jun 22, 2024 05:51 PM Reporting Lab: [facility] [address] Performing Lab: [facility] [address] CREATININE 0.7 mg/dL 0.7-1.2 UREA NITROGEN 16 [...] >90 >60 Jun 23, 2024 07:52 AM [facility] CBC & DIFF Specimen Type: BLOOD Comment: Automated Differential Performed Ordering Provider: JEVON ZAZUETA Report Released Date/Time: Jun 22, 2024 05:51 PM Reporting Lab: [facility] [address] Performing Lab: [facility] [address] WBC 14.9 H 4.0-11.0 RBC 5.09 4.60-6.20 [...] 0.1 0.0-0.1 Jun 22, 2024 06:10 PM [facility] COMPREHENSIVE METABOLIC PANEL+MG Specimen Type: PLASMA No comment entered. Ordering Provider: JEVON ZAZUETA Report Released Date/Time: Jun 22, 2024 05:51 PM Reporting Lab: [facility] [address] Performing Lab: [facility] [address] CREATININE 0.7 mg/dL 0.7-1.2 UREA NITROGEN 17 [...] >90 >60 Jun 22, 2024 06:10 PM [facility] CBC Specimen Type: BLOOD No comment entered. Ordering Provider: JEVON ZAZUETA Report Released Date/Time: Jun 22, 2024 05:51 PM Reporting Lab: [facility] [address] Performing Lab: [facility] [address] WBC 16.9 H 4.0-11.0 RBC 5.28 4.60-6.20 HGB 16.9 g/dL 13.5-17.9 HCT 50.4 41.0-54.0 MCV 95.5 fL 80.0-100.0 MCH 32.0 pg 27.0-33.0 MCHC 33.5 g/dL 32.0-37.5 PLT 223 150-400 MPV 10.9 fL 9.1-13.0 RDW 14.0 11.5-14.5 Jun 21, 2024 06:48 PM [facility] URINALYSIS Specimen Type: URINE No comment entered. Ordering Provider: DELIA MARTINEZ Report Released Date/Time: Jun 21, 2024 05:45 PM Reporting Lab: [facility] [address] Performing Lab: [facility] [address] URINE COLOR YELLOW SPECIFIC GRAVITY 1.041 H [...] 500 NEGATIVE Jun 21, 2024 05:34 PM [facility] POC CREATININE Specimen Type: BLOOD No comment entered. Ordering Provider: DELIA MARTINEZ Report Released Date/Time: Jun 21, 2024 06:07 PM Reporting Lab: [facility] [address] Performing Lab: [facility] [address] POC CREATININE 1.1 mg/dL 0.6-1.3 Jun 21, 2024 05:30 PM [facility] POC ABG/LACTATE Specimen Type: VENOUS BLOOD No comment entered. Ordering Provider: DELIA MARTINEZ Report Released Date/Time: Jun 21, 2024 06:07 PM Reporting Lab: [facility] [address] Performing Lab: [facility] [address] POC PH 7.470 H 7.31-7.41 POC PCO2 31.2 mm[Hg] L 41.00-51 .0 0 POC PO2 46 mm[Hg] H 35.0-40.0 POC TCO2 24 mmol/L 24.0-29.0 POC HCO3 22.7 mmol/L L 23.0-28.0 POC BE ECT -1 mmol/L POC SO2 85 H 70-75 POC LACTATE 1.85 mmol/L 0.90-1.70 Jun 21, 2024 05:24 PM [facility] PROTHROMBIN TIME/INR Specimen Type: PLASMA No comment entered. Ordering Provider: DELIA MARTINEZ Report Released Date/Time: Jun 21, 2024 05:30 PM Reporting Lab: [facility] [address] Performing Lab: [facility] [address] .INR 1.2 H 0.8-1.1 .PT 13.9 s H 9.4-12.5 Jun 21, 2024 05:24 PM [facility] LIPASE Specimen Type: PLASMA No comment entered. Ordering Provider: DELIA MARTINEZ Report Released Date/Time: Jun 21, 2024 05:30 PM Reporting Lab: [facility] [address] Performing Lab: [facility] [address] LIPASE 32 U/L <60 Jun 21, 2024 05:24 PM [facility] EXTRA GOLD GEL TUBE Specimen Type: SERUM No comment entered. Ordering Provider: DELIA MARTINEZ Report Released Date/Time: Jun 21, 2024 05:41 PM Reporting Lab: [facility] [address] Performing Lab: [facility] [address] EXTRA GOLD GEL TUBE RECEIVED Jun 21, 2024 05:24 PM [facility] COMPREHENSIVE METABOLIC PANEL+MG Specimen Type: PLASMA No comment entered. Ordering Provider: DELIA MARTINEZ Report Released Date/Time: Jun 21, 2024 05:30 PM Reporting Lab: [facility] [address] Performing Lab: [facility] [address] CREATININE 0.9 mg/dL 0.7-1.2 UREA NITROGEN 29 [...] mg/dL <0.5 Jun 21, 2024 05:24 PM [facility] CBC & DIFF Specimen Type: BLOOD Comment: Manual Differential Performed Ordering Provider: DELIA MARTINEZ Report Released Date/Time: Jun 21, 2024 05:30 PM Reporting Lab: [facility] [address] Performing Lab: [facility] [address] WBC 21.3 H 4.0-11.0 RBC 5.48 4.60-6.20 [...] Jul 16, 2024 12:17 PM Yecenia LOZANO [facility] Social History: Smoking Status (Most current) and Tobacco Use (All prior to encounter date) This section includes the most current, and the historical, smoking and tobacco- related health factors from the ME facility where the Encounter took place. Current Smoking Status This section includes the most current smoking, or tobacco-related health factor, from the [facility] where the Encounter took place. Date/Time Current Smoking Status Comment Facil ity May 15, 2024 08:30 AM VA-TOBACCO FORMER USER [facility] Tobacco Use History This section includes a history of the smoking, or tobacco-related health factors, that were collected on or before the date of the Encounter. The data comes from the ME facility where the Encounter took place. Date/Time Smoking Status/Tobacco Use Comment F acility May 15, 2024 08:30 AM VA-TOBACCO QUIT 15 YRS OR MORE [facility] May 06, 2023 11:30 AM VA-TOBACCO FORMER USER [facility] May 06, 2023 11:30 AM VA-TOBACCO QUIT 15 YRS OR MORE [facility] Jun 04, 2022 09:00 AM VA-TOBACCO FORMER USER [facility] Jun 04, 2022 09:00 AM VA-TOBACCO QUIT 15 YRS OR MORE [facility] Jul 10, 2021 08:00 AM VA-TOBACCO FORMER USER [facility] Jul 10, 2021 08:00 AM VA-TOBACCO QUIT 5 TO < 15 YRS [facility] May 23, 2020 08:30 AM VA-TOBACCO FORMER USER [facility] May 23, 2020 08:30 AM VA-TOBACCO QUIT 5 TO < 15 YRS [facility] Mar 20, 2019 04:03 PM VA-TOBACCO FORMER USER [facility] Mar 20, 2019 04:03 PM VA-TOBACCO QUIT 5 TO < 15 YRS [facility] Mar 21, 2018 08:13 AM FORMER TOBACCO USER 7Y OR GREATE R [facility] Feb 24, 2017 09:24 AM FORMER TOBACCO USER 7Y OR GREATE R [facility] January 07, 2016 08:01 AM FORMER TOBACCO USE >1Y <7Y [facility] Feb 03, 2015 07:58 AM FORMER TOBACCO USE <1Y [facility] Feb 26, 2014 08:41 AM CURRENT TOBACCO USER [facility] May 13, 2011 01:45 PM CURRENT TOBACCO USER [facility] Advance Directives: All historical and [...] 06:15 PM CHEST 1 VIEW: FLACA WEAVER [id number] -1950 M Exm Date: JUL 18, 2024@18:15 Req Phys: LEISA GOLDEN Loc: 3E07-18-2024@19:00 Img Loc: MAIN X-RAY Service: [facility] [place] [address] (Case [id number] COMPLETE) CHEST 1 VIEW (RAD Detailed) CPT:75789 Proc Modifiers : PORTABLE EXAM Reason for Study: SOB Clinical History: IS NOT under investigation for COVID-19 or is COVID-19 negative 73 yo with SOB Responsible provider name and phone number to notify for critical findings if other than user placing the order and pager listed below: User placing orders pager: [phone] LAST CREATININE 1.2 (07/17/24) Report Status: Verified Date Reported: JUL 18, 2024 Date Verified: JUL 18, 2024 Chief Fundraising Officer E-Sig:/ES/CARLOS A CUNNINGHAM DO Report: EXAMINATION: CHEST 1 VIEW Reason for Study: SOB IS NOT under investigation for COVID-19 or is COVID-19 negative 73 yo with SOB Responsible provider name and phone number to notify for critical findings if other than user placing the order and pager listed below: User placing orders pager: [phone] LAST CREATININE 1.2 (07/17/24) SOB TECHNIQUE: Single [...] Staff: CARLOS A CUNNINGHAM DO, RADIOLOGIST (Chief Fundraising Officer) /CARLOS A ROWELL [facility] Jul 16, 2024 07:49 AM [facility] [place] [place] CT ABDOMEN/PELVIS: FLACA WEAVER [id number] -1950 M Exm Date: JUL 16, 2024@07:49 Req Phys: JATINDER CABRERA Loc: 07-17-2024@09:02 Img Loc: OUTSOURCE CT Service: Unknown (Case [id number] COMPLETE) NON ME CT ABDOMEN/PELVIS (CT Detailed) CPT:84571 Reason for Study: outside study Clinical History: [...] Diagnostic Code: VERIFIED BY: / *ELECTRONICALLY FILED* [facility] Jul 13, 2024 09:41 AM [facility] [place] [place] CT ABDOMEN/PELVIS: FLACA WEAVER [id number] -1950 M Exm Date: JUL 13, 2024@09:41 Req Phys: JATINDER CABRERA Loc: 07-17-2024@09:08 Img Loc: OUTSOURCE CT Service: Unknown (Case [id number] COMPLETE) NON ME CT ABDOMEN/PELVIS (CT Detailed) CPT:48785 Reason for Study: outside study Clinical History: [...] Diagnostic Code: VERIFIED BY: / *ELECTRONICALLY FILED* [facility] Jul 08, 2024 10:09 AM CHEST 2 VIEWS PA AND LAT: FLACA WEAVER [id number] -1950 M Exm Date: JUL 08, 2024@10:09 Req Phys: KATELYNN PERSON Pat Loc: 2KG/07-08-2024@11:49 Img Loc: MAIN X-RAY Service: [facility] [place] [address] (Case [id number] COMPLETE) CHEST 2 VIEWS PA AND LAT (RAD Detailed) CPT:53790 Reason for Study: Uptrending WBC, POD 5 Clinical History: [place] IS NOT under investigation for COVID-19 or is COVID-19 negative POD 5, work up for uptrending wbc Responsible provider name and phone number to notify for critical findings if other than user placing the order and pager listed below: User placing orders pager: Katelynn Person LAST CREATININE 0.9 (07/07/24) Report Status: Verified Date Reported: JUL 08, 2024 Date Verified: JUL 08, 2024 Chief Fundraising Officer E-Sig: Report: CHEST 2 VIEWS PA [...] cardiopulmonary disease. READING PHYSICIAN: Sarbjit Vaughn M.D. -[phone] 07/08/2024 12:46 EST [facility] National Teleradiology Program [phone] (For Medical Practitioner Use Only) Attention Patients / Veterans: If you have questions or concerns about these test results, please contact your ordering provider or primary care team. Primary Interpreting Staff: RADIOLOGY,OUTSIDE SERVICE, Staff Physician / RADIOLOGY,OUTSIDE SERVICE [facility] Jul 08, 2024 10:[address] (AP) ABDOMEN/PELVIS W CONTRAST: FLACA WEAVER [id number] -1950 M Exm Date: JUL 08, 2024@10:00 Req Phys: KATELYNN PERSON Pat Loc: 2K/07-08-2024@12:07 Img Loc: CT IMAGING Service: [facility] [place] [address] (Case 22 COMPLETE) CT (AP) ABDOMEN/PELVIS W CONTRAST(CT Detailed) CPT:91826 Contrast Media : Non-ionic Iodinated Reason for [...] PLASMA .CREAT EGFR(CKD-E >90 Ref: >=60 Allergies: (Spring only) TERAZOSIN (Mar 13, 2015) Report Status: Verified Date Reported: JUL 08, 2024 Date Verified: JUL 08, 2024 Chief Fundraising Officer E-Sig: Report: CT (AP) ABDOMEN/PELVIS W [...] as noted above READING PHYSICIAN: Celestino Blanc -[phone] 07/08/2024 13:04 EST [facility] Infoxelradiology Program [phone] (For Medical Practitioner Use Only) Attention Patients / Veterans: If you have questions or concerns about these test results, please contact your ordering provider or primary care team. Primary Interpreting Staff: RADIOLOGY,OUTSIDE SERVICE, Staff Physician / RADIOLOGY,OUTSIDE SERVICE [facility] Jun 22, 2024 11:49 AM ABSCESS DRAIN PLACEMENT PERITONEAL (P): FLACA WEAVER [id number] -1950 M Exm Date: JUN 22, 2024@11:49 Req Phys: ANGELA HOLDEN Loc: [facility]/06-22-2024@17:14 Img Loc: INTERVENTIONAL RADIOLOGY Service: [facility] [place] [address] (Case [id number] COMPLETE) IR PERITONEAL/RETROPERITONEAL PER(ANI Detailed) CPT:50009 Reason for Study: diverticulitis with abscess (Case [id number] COMPLETE) IR MOD SEDATION 10-22 MIN (ANI Detailed) CPT:79282 Clinical History: IS NOT under investigation for COVID-19 or is COVID-19 negative 73 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 please place abscess drain. Contact number for responsible provider who can be reached for any questions or notifications of critical findings: [phone] n/a LAST CREATININE 0.9 (06/21/24) Report Status: Verified Date Reported: JUN 22, 2024 Date Verified: JUN 22, 2024 Chief Fundraising Officer E-Sig:/ES/LISA PENDLETON MD Report: PROCEDURES: Placement [...] anesthesia. Using real-time CT fluoroscopy, a 5 Vietnamese Yueh centesis catheter was advanced into the collection in the left pelvis. A wire was coiled in the collection. The tract into the collection was dilated to accommodate the 12 Vietnamese locking pigtail drainage catheter. There was return [...] Interpreting Staff: LISA PENDLETON MD, RADIOLOGIST (Chief Fundraising Officer) /JRT LISA PENDLETON [facility] Jun 22, 2024 11:[address] NEEDLE PLACEMENT (P): FLACA WEAVER [id number] -1950 M Exm Date: JUN 22, 2024@11:48 Req Phys: ANGELA HOLDEN [facility] Loc: [facility]/06-22-2024@17:14 Img Loc: CT IMAGING Service: [place] [place] [address] (Case [id number] COMPLETE) CT SCAN FOR NEEDLE PLACEMENT (CT Detailed) CPT:05396 Reason for Study: l pelvic abscess drain Clinical History: Report Status: Verified Date Reported: JUN 22, 2024 Date Verified: JUN 22, 2024 Chief Fundraising Officer E-Sig:/ES/LISA PENDLETON MD Report: PROCEDURES: Placement [...] anesthesia. Using real-time CT fluoroscopy, a 5 Vietnamese InSampleesis catheter was advanced into the collection in the left pelvis. A wire was coiled in the collection. The tract into the collection was dilated to accommodate the 12 Vietnamese locking pigtail drainage catheter. There was return [...] Interpreting Staff: LISA PENDLETON MD, RADIOLOGIST (Chief Fundraising Officer) /JRT LISA PENDLETON [facility] Jun 21, 2024 06:[address] (AP) ABDOMEN/PELVIS (P): FLACA WEAVER [id number] -1950 M Exm Date: JUN 21, 2024@18:09 Req Phys: DELIA MARTINEZ Loc: [facility] EMERGENCY DEPT WALK-IN (Re Img Loc: CT IMAGING Service: [place] [address] (Case [id number] COMPLETE) CT (AP) ABDOMEN/PELVIS W CONTRAST(CT Detailed) CPT:72729 Contrast Media : Non-ionic Iodinated Reason for [...] PLASMA .CREAT EGFR(CKD-E >90 Ref: >=60 Allergies: ([facility]) TERAZOSIN (Mar 13, 2015) Defer to [...] 2024 Date Verified: JUN 21, 2024 Chief Fundraising Officer E-Sig:/ALEXI/CARLOS A CUNNINGHAM DO Report: EXAMINATION: [...] Staff: CARLOS A CUNNINGHAM DO, RADIOLOGIST (Chief Fundraising Officer) /CARLOS A ROWELL [facility] Pathology Reports: +/- 30 days [...] PORT: Reporting Lab: [facility] [CLIA# [id number]] [place] [address] Accession [UID]: [id number] [[id number]] Received: Jul 16, 2024@14:41 Collection sample: BLOOD Collection date: Jul 16, 2024 14:07 Provider: LEISA GOLDEN Comment on specimen: R AC, RECEIVED 2 BLOOD CULTURE BOTTLES Test(s) ordered: CULTURE & SUSCEPTIBILITY...... completed: Jul 22, 2024 * BACTERIOLOGY FINAL REPORT => Jul 22, 2024 13:39 TECH CODE: [id number] CULTURE RESULTS: NO GROWTH 5 DAYS Bacteriology Remark(s): THIS REPORT IS FINAL =--=--=--=--=--=--=--=--=--= --=--=--=--=--=--=--=--=--=- -=--=--=--=--=--=--=-- Performing Laboratory: Bacteriology Report Performed By: [facility] [CLIA# [id number]] [place] [address] [facility] Jul 16, 2024 01:54 PM LR MICROBIOLOGY RE PORT: Reporting Lab: [facility] [CLIA# [id number]] [place] [address] Accession [UID]: [id number] [[id number]] Received: Jul 16, 2024@14:41 Collection sample: BLOOD Collection date: Jul 16, 2024 13:54 Provider: LEISA GOLDEN Comment on specimen: L AC, RECEIVED 2 BLOOD CULTURE BOTTLES Test(s) ordered: CULTURE & SUSCEPTIBILITY...... completed: Jul 22, 2024 * BACTERIOLOGY FINAL REPORT => Jul 22, 2024 13:39 TECH CODE: [id number] CULTURE RESULTS: NO GROWTH 5 DAYS Bacteriology Remark(s): THIS REPORT IS FINAL =--=--=--=--=--=--=--=--=--= --=--=--=--=--=--=--=--=--=- -=--=--=--=--=--=--=-- Performing Laboratory: Bacteriology Report Performed By: [facility] [CLIA# [id number]] [place] [address] [facility] Jul 03, 2024 05:59 AM LR SURGICAL PATHOL OGY REPORT: LOCAL TITLE: LR SURGICAL PATHOLOGY REPORT STANDARD TITLE: PATHOLOGY REPORT DATE OF NOTE: JUL 06, 2024@10:40:48 ENTRY DATE: JUL 06, 2024@10:40:48 AUTHOR: EDUARDO PALOMARES EXP COSIGNER: URGENCY: STATUS: COMPLETED $APHDR Reporting Lab: [facility] [CLIA# [id number]] [place] [address] - - - - - - - [...] - PATHOLOGY REPORT Accession No. [id number] - - - - - - - [...] - PATHOLOGY REPORT Accession No. [id number] - - - - - - - [...] Second circumferential surgical margin, en face; E-F: Retail Marketing Manager diverticula; G: Retail Marketing Manager section of mesentery; H: Random rental sales representative section of additional adipose tissue [...] One colonic tissue ring, bisected transversely. [facility]: Microscopic examination performed. DIAGNOSIS: 1. Colon, sigmoid, sigmoidectomy-- - Diverticulosis with perforation and focal abscess formation 2. Colon, anastomotic rings, excision-- - Viable colonic mucosa without diagnostic abnormality /es/ EDUARDO PALOMARES MD STAFF PATHOLOGIST Signed Jul 06, 2024@10:40 Performing Laboratory: Surgical Pathology Report Performed By: [facility] [CLIA# [id number]] [place] [address] $FTR - - - - - - [...] - - FLACA WEAVER STANDARD FORM 515 ID:[id number] SEX:M :1950 AGE: 73 LOC:65275 ADM:Jun DX:DIVERTICULITIS PCP: Jatinder Cabrera /alexi/ EDUARDO PALOMARES MD STAFF PATHOLOGIST Signed: 07/06/2024 10:40 EDUARDO PALOMARES [facility] Jun 22, 2024 01:15 PM LR MICROBIOLOGY RE PORT: Reporting Lab: [facility] [CLIA# [id number]] [place] [address] Accession [UID]: [id number] [[id number]] Received: Jun 22, 2024@13:38 Collection sample: FLUID Collection date: Jun 22, 2024 13:15 Provider: ANGELA HOLDEN Comment on specimen: LLQ ABSCESS, RECEIVED IN ANAEROBIC TRANSPORT VIAL Test(s) ordered: GRAM STAIN.................... completed: Jun 22, 2024 15:03 CULTURE & SUSCEPTIBILITY...... completed: Jun 25, 2024 * BACTERIOLOGY FINAL REPORT => Jun 25, 2024 10:56 TECH CODE: [id number] GRAM STAIN: DIRECT SMEAR of specimen before [...] Report Performed By: [facility] [CLIA# [id number]] [place] [address] [facility] Jun 22, 2024 01:15 PM LR MICROBIOLOGY RE PORT: Reporting Lab: [facility] [CLIA# [id number]] [place] [id number] Accession [UID]: [id number] [[id number]] Received: Jun 22, 2024@13:38 Collection sample: FLUID Collection date: Jun 22, 2024 13:15 Provider: ANGELA HOLDEN Comment on specimen: LLQ ABSCESS, RECEIVED IN ANAEROBIC TRANSPORT VIAL Test(s) ordered: ANAEROBIC CULTURE............. completed: Jun 28, 2024 * BACTERIOLOGY FINAL REPORT => Jun 28, 2024 10:08 TECH CODE: [id number] CULTURE RESULTS: HEAVY GROWTH MIXED ANAEROBES Comment: [...] Report Performed By: [facility] [CLIA# [id number]] [place] [address] [facility] Jun 21, 2024 06:12 PM LR MICROBIOLOGY RE PORT: Reporting Lab: [facility] [IA# [id number]] [place] [address] Accession [UID]: [id number] [[id number]] Received: Jun 21, 2024@18:12 Collection sample: BLOOD [...] Report Performed By: [facility] [CLIA# [id number]] [place] [address] [facility] Jun 21, 2024 06:11 PM LR MICROBIOLOGY RE PORT: Reporting Lab: [facility] [CLIA# [id number]] [place] [address] Accession [UID]: [id number] [[id number]] Received: Jun 21, 2024@18:11 Collection sample: BLOOD [...] Report Performed By: [facility] [CLIA# [id number]] [place] [address] [facility]
--- OUTSIDE RECORDS SUMMARY | 2024-08-01 07:54 | XMS_ITS | Encounter Summary ---
Author Name [facility] Address [address] [place] [address] Care Team Providers Care Employment Coach Name Role Phone JATINDER CABRERA Primary Care [...] PART A Sep 29, 2016 PART A [id number] [phone] JUDY WEAVER PATIENT Selected Encounter This section includes the information on record at [place] for the Encounter. Date/Time Encounter Type Encounter Description Reason Provider Source Jul 16, 2024 03:09 PM [facility] OL DIG ASSMT&MGMT 11-20 CLINICAL PHARMACY ICD-10-CM Z79.2 senior care (current) use of antibiotics JOSIE DAY Alex Encounter Template Text not used by [place] Assessments - Encounter Diagnoses This section includes the primary and secondary diagnoses documented for the Encounter. Date/Time Primary/Secondary Diagnosis Diagnosis Name Provider Source Jul 16, 2024 03:19 PM PRIMARY senior care (current) use of antibiotics JOSIE DAY [facility] Plan of Treatment: Future Appointments (+ 6 months) and Future Tests (+/- 45 days) The Plan of Treatment section includes future care activities for the patient [facility]. This section includes future appointments and [...] Chemi stry Order URINALYSIS URINE WC ONCE [facility] Jun 12, 2024 12:00 AM Laboratory - Chemi stry Order BNP PLASMA SP ONCE [facility] Jun 21, 2024 05:45 PM Laboratory - Blood Bank Order TYPE & SCREEN - LAB BLOOD [facility] Jul 03, 2024 12:00 AM Laboratory - Blood Bank Order TYPE & SCREEN - LAB BLOOD [facility] Jul 16, 2024 12:00 AM Laboratory - Chemi stry Order CBC BLOOD SP ONCE [facility] Jul 17, 2024 12:00 AM Laboratory - Chemi stry Order BASIC METABOLIC PANEL+MG PLASMA SP ONCE [facility] Lab Results: +/- 30 [...] Range Comment Jul 21, 2024 10:38 AM [facility] BASIC METABOLIC PANEL+MG Specimen Type: PLASMA No comment entered. Ordering Provider: SARAI GOLDEN Report Released Date/Time: Jul 20, 2024 06:50 PM Reporting Lab: [facility] [address] Performing Lab: [facility] [address] CREATININE 0.8 mg/dL 0.7-1.2 UREA NITROGEN 31 mg/dL H 8-26 GLUCOSE 120 mg/dL H 70-100 SODIUM 125 mmol/L L 136-145 POTASSIUM 4.4 mmol/L 3.5-5.1 CHLORIDE 100 mmol/L 98-107 CO2 17 mmol/L L 22-29 CALCIUM 9.6 mg/dL 8.4-10.2 MAGNESIUM 1.9 mg/dL 1.6-2.6 ANION GAP 8 mmol/L 5-15 .CREAT EGFR(CKD-EPI) >90 >60 Jul 21, 2024 10:38 AM [facility] CBC Specimen Type: BLOOD No comment entered. Ordering Provider: SARAI GOLDEN Report Released Date/Time: Jul 20, 2024 06:50 PM Reporting Lab: [facility] [address] Performing Lab: [facility] [address] WBC 16.0 H 4.0-11.0 RBC 5.16 4.60-6.20 HGB 15.8 g/dL 13.5-17.9 HCT 45.5 41.0-54.0 MCV 88.2 fL 80.0-100.0 MCH 30.6 pg 27.0-33.0 MCHC 34.7 g/dL 32.0-37.5 PLT 428 H 150-400 MPV 10.8 fL 9.1-13.0 RDW 13.6 11.5-14.5 Jul 20, 2024 01:00 PM [facility] SODIUM,URINE RANDOM Specimen Type: URINE No comment entered. Ordering Provider: SARAI GOLDEN Report Released Date/Time: Jul 20, 2024 08:22 AM Reporting Lab: [facility] [address] Performing Lab: [facility] [address] SODIUM,URINE RANDOM <20 mmol/L Jul 20, 2024 01:00 PM [facility] OSMOLALITY,URINE Specimen Type: URINE No comment entered. Ordering Provider: SARAI GOLDEN Report Released Date/Time: Jul 20, 2024 08:22 AM Reporting Lab: [facility] [address] Performing Lab: [facility] [address] OSMOLALITY,URIN E 648 mosm/kg 500-800 Jul 20, 2024 06:45 AM [facility] BASIC METABOLIC PANEL+MG Specimen Type: PLASMA No comment entered. Ordering Provider: SARAI GOLDEN Report Released Date/Time: Jul 19, 2024 06:13 PM Reporting Lab: [facility] [address] Performing Lab: [facility] [address] CREATININE 0.8 mg/dL 0.7-1.2 UREA NITROGEN 36 mg/dL H 8-26 GLUCOSE 111 mg/dL H 70-100 SODIUM 121 mmol/L L 136-145 POTASSIUM 4.1 mmol/L 3.5-5.1 CHLORIDE 99 mmol/L 98-107 CO2 14 mmol/L L 22-29 CALCIUM 9.5 mg/dL 8.4-10.2 MAGNESIUM 1.8 mg/dL 1.6-2.6 ANION GAP 8 mmol/L 5-15 .CREAT EGFR(CKD-EPI) >90 >60 Jul 20, 2024 06:43 AM [facility] CBC & DIFF Specimen Type: BLOOD Comment: Automated Differential Performed Ordering Provider: SARAI GOLDEN Report Released Date/Time: Jul 19, 2024 06:13 PM Reporting Lab: [facility] [address] Performing Lab: [facility] [address] WBC 16.6 H 4.0-11.0 RBC 4.96 4.60-6.20 [...] H 0.0-0.1 Jul 20, 2024 05:30 AM [facility] OSMOLALITY,SERUM Specimen Type: SERUM No comment entered. Ordering Provider: SARAI GOLDEN Report Released Date/Time: Jul 20, 2024 09:47 AM Reporting Lab: [facility] [address] Performing Lab: [facility] [address] OSMOLALITY,SERU M 266 mosm/kg L 276-305 Jul 19, 2024 08:57 AM [facility] BASIC METABOLIC PANEL+MG Specimen Type: PLASMA No comment entered. Ordering Provider: SARAI GOLDEN Report Released Date/Time: Jul 18, 2024 10:24 PM Reporting Lab: [facility] [address] Performing Lab: [facility] [address] CREATININE 1.0 mg/dL 0.7-1.2 UREA NITROGEN 40 mg/dL H 8-26 GLUCOSE 104 mg/dL H 70-100 SODIUM 129 mmol/L L 136-145 POTASSIUM 3.3 mmol/L L 3.5-5.1 CHLORIDE 104 mmol/L 98-107 CO2 16 mmol/L L 22-29 CALCIUM 8.0 mg/dL L 8.4-10.2 MAGNESIUM 1.7 mg/dL 1.6-2.6 ANION GAP 9 mmol/L 5-15 .CREAT EGFR(CKD-EPI) 80 >60 Jul 19, 2024 08:57 AM [facility] CBC Specimen Type: BLOOD No comment entered. Ordering Provider: SARAI GOLDEN Report Released Date/Time: Jul 18, 2024 10:24 PM Reporting Lab: [facility] [address] Performing Lab: [facility] [address] WBC 17.3 H 4.0-11.0 RBC 4.83 4.60-6.20 HGB 14.8 g/dL 13.5-17.9 HCT 42.6 41.0-54.0 MCV 88.2 fL 80.0-100.0 MCH 30.6 pg 27.0-33.0 MCHC 34.7 g/dL 32.0-37.5 PLT 456 H 150-400 MPV 10.8 fL 9.1-13.0 RDW 13.7 11.5-14.5 Jul 17, 2024 06:55 PM [facility] PHOSPHORUS Specimen Type: PLASMA No comment entered. Ordering Provider: SARAI GOLDEN Report Released Date/Time: Jul 17, 2024 01:54 PM Reporting Lab: [facility] [address] Performing Lab: [facility] [address] PHOSPHORUS 2.9 mg/dL 2.3-4.3 Jul 17, 2024 06:55 PM [facility] BASIC METABOLIC PANEL+MG Specimen Type: PLASMA No comment entered. Ordering Provider: SARAI GOLDEN Report Released Date/Time: Jul 17, 2024 01:54 PM Reporting Lab: [facility] [address] Performing Lab: [facility] [address] CREATININE 1.2 mg/dL 0.7-1.2 UREA NITROGEN 62 mg/dL H 8-26 GLUCOSE 116 mg/dL H 70-100 SODIUM 128 mmol/L L 136-145 POTASSIUM 3.8 mmol/L 3.5-5.1 CHLORIDE 100 mmol/L 98-107 CO2 16 mmol/L L 22-29 CALCIUM 9.3 mg/dL 8.4-10.2 MAGNESIUM 2.1 mg/dL 1.6-2.6 ANION GAP 12 mmol/L 5-15 .CREAT EGFR(CKD-EPI) 64 >60 Jul 17, 2024 07:00 AM [facility] CBC & DIFF Specimen Type: BLOOD Comment: Manual Differential Performed Ordering Provider: SARAI GOLDEN Report Released Date/Time: Jul 16, 2024 04:52 PM Reporting Lab: [facility] [address] Performing Lab: [facility] [address] WBC 18.9 H 4.0-11.0 RBC 5.55 4.60-6.20 [...] MORPHOLOGY PRESENT Jul 17, 2024 07:00 AM [facility] ALBUMIN Specimen Type: PLASMA No comment entered. Ordering Provider: SARAI GOLDEN Report Released Date/Time: Jul 16, 2024 12:12 PM Reporting Lab: [facility] [address] Performing Lab: [facility] [address] ALBUMIN 4.3 g/dL 3.5-5.0 Jul 17, 2024 07:00 AM [facility] COMPREHENSIVE METABOLIC PANEL+MG Specimen Type: PLASMA No comment entered. Ordering Provider: SARAI GOLDEN Report Released Date/Time: Jul 16, 2024 04:52 PM Reporting Lab: [facility] [address] Performing Lab: [facility] [address] CREATININE 1.3 mg/dL H 0.7-1.2 UREA NITROGEN [...] L >60 Jul 16, 2024 07:10 PM [facility] LACTIC ACID Specimen Type: PLASMA No comment entered. Ordering Provider: SARAI GOLDEN Report Released Date/Time: Jul 16, 2024 12:12 PM Reporting Lab: [facility] [address] Performing Lab: [facility] [address] LACTIC ACID 0.9 mmol/L 0.5-2.2 Jul 16, 2024 02:14 PM [facility] MRSA SURVL NARES DNA Specimen Type: NARES No comment entered. Ordering Provider: SARAI GOLDEN Report Released Date/Time: Jul 16, 2024 12:12 PM Reporting Lab: [facility] [address] Performing Lab: [facility] [address] MRSA SURVL NARES DNA NEGATIVE Negative Jul 16, 2024 02:10 PM [facility] LACTIC ACID Specimen Type: PLASMA No comment entered. Ordering Provider: SARAI GOLDEN Report Released Date/Time: Jul 16, 2024 12:12 PM Reporting Lab: [facility] [address] Performing Lab: [facility] [address] LACTIC ACID 0.9 mmol/L 0.5-2.2 Jul 16, 2024 02:08 PM [facility] COMPREHENSIVE METABOLIC PANEL+MG Specimen Type: PLASMA No comment entered. Ordering Provider: SARAI GOLDEN Report Released Date/Time: Jul 16, 2024 12:12 PM Reporting Lab: [facility] [address] Performing Lab: [facility] [address] CREATININE 2.0 mg/dL H 0.7-1.2 UREA NITROGEN [...] L >60 Jul 16, 2024 02:08 PM [facility] CBC & DIFF Specimen Type: BLOOD Comment: Manual Differential Performed Ordering Provider: SARAI GOLDEN Report Released Date/Time: Jul 16, 2024 12:12 PM Reporting Lab: [facility] [address] Performing Lab: [facility] [address] WBC 19.7 H 4.0-11.0 RBC 5.39 4.60-6.20 [...] MORPHOLOGY PRESENT Jul 10, 2024 07:16 AM [facility] PHOSPHORUS Specimen Type: PLASMA No comment entered. Ordering Provider: JUANCARLOS ECHOLS Report Released Date/Time: Jul 09, 2024 12:23 PM Reporting Lab: [facility] [address] Performing Lab: [facility] [address] PHOSPHORUS 3.0 mg/dL 2.3-4.3 Jul 10, 2024 07:16 AM [facility] BASIC METABOLIC PANEL+MG Specimen Type: PLASMA No comment entered. Ordering Provider: JUANCARLOS ECHOLS S Report Released Date/Time: Jul 09, 2024 12:23 PM Reporting Lab: [facility] [address] Performing Lab: [facility] [address] CREATININE 0.7 mg/dL 0.7-1.2 UREA NITROGEN 27 mg/dL H 8-26 GLUCOSE 104 mg/dL H 70-100 SODIUM 133 mmol/L L 136-145 POTASSIUM 4.3 mmol/L 3.5-5.1 CHLORIDE 102 mmol/L 98-107 CO2 19 mmol/L L 22-29 CALCIUM 10.1 mg/dL 8.4-10.2 MAGNESIUM 1.9 mg/dL 1.6-2.6 ANION GAP 12 mmol/L 5-15 .CREAT EGFR(CKD-EPI) >90 >60 Jul 10, 2024 07:15 AM [facility] CBC Specimen Type: BLOOD No comment entered. Ordering Provider: JUANCARLOS ECHOLS S Report Released Date/Time: Jul 09, 2024 12:23 PM Reporting Lab: [facility] [address] Performing Lab: [facility] [address] WBC 18.8 H 4.0-11.0 RBC 5.08 4.60-6.20 HGB 15.9 g/dL 13.5-17.9 HCT 46.8 41.0-54.0 MCV 92.1 fL 80.0-100.0 MCH 31.3 pg 27.0-33.0 MCHC 34.0 g/dL 32.0-37.5 PLT 479 H 150-400 MPV 10.2 fL 9.1-13.0 RDW 13.7 11.5-14.5 Jul 09, 2024 07:08 AM [facility] CBC Specimen Type: BLOOD No comment entered. Ordering Provider: QUYNH WEISS Report Released Date/Time: Jul 08, 2024 06:18 PM Reporting Lab: [facility] [address] Performing Lab: [facility] [address] WBC 15.3 H 4.0-11.0 RBC 4.91 4.60-6.20 HGB 15.1 g/dL 13.5-17.9 HCT 45.7 41.0-54.0 MCV 93.1 fL 80.0-100.0 MCH 30.8 pg 27.0-33.0 MCHC 33.0 g/dL 32.0-37.5 PLT 443 H 150-400 MPV 10.0 fL 9.1-13.0 RDW 13.5 11.5-14.5 Jul 08, 2024 10:50 AM [facility] URINALYSIS Specimen Type: URINE No comment entered. Ordering Provider: KATELYNN PERSON Report Released Date/Time: Jul 08, 2024 08:41 AM Reporting Lab: [facility] [address] Performing Lab: [facility] [address] URINE COLOR YELLOW SPECIFIC GRAVITY >1.050 H [...] NEGATIVE NEGATIVE Jul 08, 2024 09:54 AM [facility] CBC Specimen Type: BLOOD Comment: Specimen received in Lab at: [id number] Ordering Provider: JUANCARLOS ECHOLS Report Released Date/Time: Jul 07, 2024 04:49 PM Reporting Lab: [facility] [address] Performing Lab: [facility] [address] WBC 17.5 H 4.0-11.0 RBC 4.88 4.60-6.20 HGB 14.9 g/dL 13.5-17.9 HCT 45.7 41.0-54.0 MCV 93.6 fL 80.0-100.0 MCH 30.5 pg 27.0-33.0 MCHC 32.6 g/dL 32.0-37.5 PLT 472 H 150-400 MPV 10.2 fL 9.1-13.0 RDW 13.7 11.5-14.5 Jul 08, 2024 09:54 AM [facility] PHOSPHORUS Specimen Type: PLASMA Comment: Specimen received in Lab at: [id number] Ordering Provider: JUANCARLOS ECHOLS Report Released Date/Time: Jul 07, 2024 04:49 PM Reporting Lab: [facility] [address] Performing Lab: [facility] [address] PHOSPHORUS 2.6 mg/dL 2.3-4.3 Jul 08, 2024 09:54 AM [facility] BASIC METABOLIC PANEL+MG Specimen Type: PLASMA Comment: Specimen received in Lab at: [id number] Ordering Provider: JUANCARLOS ECHOLS S Report Released Date/Time: Jul 07, 2024 04:49 PM Reporting Lab: [facility] [address] Performing Lab: [facility] [address] CREATININE 0.9 mg/dL 0.7-1.2 UREA NITROGEN 26 mg/dL 8-26 GLUCOSE 128 mg/dL H 70-100 SODIUM 134 mmol/L L 136-145 POTASSIUM 3.4 mmol/L L 3.5-5.1 CHLORIDE 100 mmol/L 98-107 CO2 24 mmol/L 22-29 CALCIUM 9.8 mg/dL 8.4-10.2 MAGNESIUM 1.8 mg/dL 1.6-2.6 ANION GAP 10 mmol/L 5-15 .CREAT EGFR(CKD-EPI) >90 >60 Jul 07, 2024 02:00 PM [facility] C DIFF PANEL Specimen Type: FECES No comment entered. Ordering Provider: JEVON ZAZUETA Report Released Date/Time: Jul 07, 2024 12:26 PM Reporting Lab: [facility] [address] Performing Lab: [facility] [address] C DIFF TOX B GENE PCR NEGATIVE Negative Jul 07, 2024 07:41 AM [facility] PHOSPHORUS Specimen Type: PLASMA No comment entered. Ordering Provider: JEVON ZAZUETA Report Released Date/Time: Jul 06, 2024 03:44 PM Reporting Lab: [facility] [address] Performing Lab: [facility] [address] PHOSPHORUS 3.1 mg/dL 2.3-4.3 Jul 07, 2024 07:41 AM [facility] BASIC METABOLIC PANEL+MG Specimen Type: PLASMA No comment entered. Ordering Provider: JEVON ZAZUETA Report Released Date/Time: Jul 06, 2024 03:44 PM Reporting Lab: [facility] [address] Performing Lab: [facility] [address] CREATININE 0.9 mg/dL 0.7-1.2 UREA NITROGEN 20 mg/dL 8-26 GLUCOSE 157 mg/dL H 70-100 SODIUM 136 mmol/L 136-145 POTASSIUM 3.7 mmol/L 3.5-5.1 CHLORIDE 102 mmol/L 98-107 CO2 21 mmol/L L 22-29 CALCIUM 9.8 mg/dL 8.4-10.2 MAGNESIUM 1.9 mg/dL 1.6-2.6 ANION GAP 13 mmol/L 5-15 .CREAT EGFR(CKD-EPI) >90 >60 Jul 07, 2024 07:40 AM [facility] CBC Specimen Type: BLOOD No comment entered. Ordering Provider: JEVON ZAZUETA Report Released Date/Time: Jul 06, 2024 03:44 PM Reporting Lab: [facility] [address] Performing Lab: [facility] [address] WBC 21.2 H 4.0-11.0 RBC 5.09 4.60-6.20 HGB 15.9 g/dL 13.5-17.9 HCT 48.3 41.0-54.0 MCV 94.9 fL 80.0-100.0 MCH 31.2 pg 27.0-33.0 MCHC 32.9 g/dL 32.0-37.5 PLT 500 H 150-400 MPV 10.3 fL 9.1-13.0 RDW 13.6 11.5-14.5 Jul 06, 2024 07:21 AM [facility] CBC Specimen Type: BLOOD No comment entered. Ordering Provider: JEVON ZAZUETA Report Released Date/Time: Jul 05, 2024 01:22 PM Reporting Lab: [facility] [address] Performing Lab: [facility] [address] WBC 18.0 H 4.0-11.0 RBC 4.83 4.60-6.20 HGB 14.6 g/dL 13.5-17.9 HCT 45.5 41.0-54.0 MCV 94.2 fL 80.0-100.0 MCH 30.2 pg 27.0-33.0 MCHC 32.1 g/dL 32.0-37.5 PLT 368 150-400 MPV 10.4 fL 9.1-13.0 RDW 13.6 11.5-14.5 Jul 06, 2024 07:21 AM [facility] PHOSPHORUS Specimen Type: PLASMA No comment entered. Ordering Provider: JEVON ZAZUETA Report Released Date/Time: Jul 05, 2024 01:22 PM Reporting Lab: [facility] [address] Performing Lab: [facility] [address] PHOSPHORUS 3.6 mg/dL 2.3-4.3 Jul 06, 2024 07:21 AM [facility] BASIC METABOLIC PANEL+MG Specimen Type: PLASMA No comment entered. Ordering Provider: JEVON ZAZUETA Report Released Date/Time: Jul 05, 2024 01:22 PM Reporting Lab: [facility] [address] Performing Lab: [facility] [address] CREATININE 0.7 mg/dL 0.7-1.2 UREA NITROGEN 12 mg/dL 8-26 GLUCOSE 108 mg/dL H 70-100 SODIUM 138 mmol/L 136-145 POTASSIUM 3.4 mmol/L L 3.5-5.1 CHLORIDE 104 mmol/L 98-107 CO2 20 mmol/L L 22-29 CALCIUM 9.3 mg/dL 8.4-10.2 MAGNESIUM 1.9 mg/dL 1.6-2.6 ANION GAP 14 mmol/L 5-15 .CREAT EGFR(CKD-EPI) >90 >60 Jul 05, 2024 07:17 AM [facility] MAGNESIUM Specimen Type: PLASMA No comment entered. Ordering Provider: JUANCARLOS ECHOLS Report Released Date/Time: Jul 04, 2024 09:39 AM Reporting Lab: [facility] [address] Performing Lab: [facility] [address] MAGNESIUM 2.0 mg/dL 1.6-2.6 Jul 05, 2024 07:17 AM [facility] PHOSPHORUS Specimen Type: PLASMA No comment entered. Ordering Provider: JUANCARLOS ECHOLS S Report Released Date/Time: Jul 04, 2024 09:39 AM Reporting Lab: [facility] [address] Performing Lab: [facility] [address] PHOSPHORUS 2.0 mg/dL L 2.3-4.3 Jul 05, 2024 07:17 AM [facility] BASIC METABOLIC PANEL+MG Specimen Type: PLASMA No comment entered. Ordering Provider: JUANCARLOS ECHOLS S Report Released Date/Time: Jul 04, 2024 09:39 AM Reporting Lab: [facility] [address] Performing Lab: [facility] [address] CREATININE 0.7 mg/dL 0.7-1.2 UREA NITROGEN 12 mg/dL 8-26 GLUCOSE 84 mg/dL 70-100 SODIUM 135 mmol/L L 136-145 POTASSIUM 3.8 mmol/L 3.5-5.1 CHLORIDE 104 mmol/L 98-107 CO2 24 mmol/L 22-29 CALCIUM 9.3 mg/dL 8.4-10.2 MAGNESIUM 2.0 mg/dL 1.6-2.6 ANION GAP 7 mmol/L 5-15 .CREAT EGFR(CKD-EPI) >90 >60 Jul 05, 2024 07:16 AM [facility] CBC Specimen Type: BLOOD No comment entered. Ordering Provider: JUANCARLOS ECHOLS S Report Released Date/Time: Jul 04, 2024 09:39 AM Reporting Lab: [facility] [address] Performing Lab: [facility] [address] WBC 18.3 H 4.0-11.0 RBC 4.49 L 4.60-6.20 HGB 14.1 g/dL 13.5-17.9 HCT 43.4 41.0-54.0 MCV 96.7 fL 80.0-100.0 MCH 31.4 pg 27.0-33.0 MCHC 32.5 g/dL 32.0-37.5 PLT 317 150-400 MPV 10.0 fL 9.1-13.0 RDW 13.9 11.5-14.5 Jul 04, 2024 07:17 AM [facility] BASIC METABOLIC PANEL+MG Specimen Type: PLASMA No comment entered. Ordering Provider: GABINO CAMERON Report Released Date/Time: Jul 03, 2024 06:31 PM Reporting Lab: [facility] [address] Performing Lab: [facility] [address] CREATININE 0.7 mg/dL 0.7-1.2 UREA NITROGEN 16 mg/dL 8-26 GLUCOSE 129 mg/dL H 70-100 SODIUM 137 mmol/L 136-145 POTASSIUM 3.7 mmol/L 3.5-5.1 CHLORIDE 107 mmol/L 98-107 CO2 22 mmol/L 22-29 CALCIUM 9.0 mg/dL 8.4-10.2 MAGNESIUM 1.9 mg/dL 1.6-2.6 ANION GAP 8 mmol/L 5-15 .CREAT EGFR(CKD-EPI) >90 >60 Jul 04, 2024 07:17 AM [facility] PHOSPHORUS Specimen Type: PLASMA No comment entered. Ordering Provider: GABINO CAMERON Report Released Date/Time: Jul 03, 2024 06:31 PM Reporting Lab: [facility] [address] Performing Lab: [facility] [address] PHOSPHORUS 2.8 mg/dL 2.3-4.3 Jul 04, 2024 07:16 AM [facility] CBC Specimen Type: BLOOD No comment entered. Ordering Provider: GABINO CAMERON Report Released Date/Time: Jul 03, 2024 06:31 PM Reporting Lab: [facility] [address] Performing Lab: [facility] [address] WBC 20.6 H 4.0-11.0 RBC 4.63 4.60-6.20 HGB 14.2 g/dL 13.5-17.9 HCT 43.4 41.0-54.0 MCV 93.7 fL 80.0-100.0 MCH 30.7 pg 27.0-33.0 MCHC 32.7 g/dL 32.0-37.5 PLT 329 150-400 MPV 10.4 fL 9.1-13.0 RDW 13.8 11.5-14.5 Jul 04, 2024 07:16 AM [facility] CBC & DIFF Specimen Type: BLOOD Comment: Manual Differential Performed Ordering Provider: GABINO CAMERON Report Released Date/Time: Jul 03, 2024 06:31 PM Reporting Lab: [facility] [address] Performing Lab: [facility] [address] WBC 20.6 H 4.0-11.0 RBC 4.63 4.60-6.20 [...] MORPHOLOGY PRESENT Jul 04, 2024 07:15 AM [facility] BNP Specimen Type: PLASMA No comment entered. Ordering Provider: GABINO CAMERON Report Released Date/Time: Jul 03, 2024 06:31 PM Reporting Lab: [facility] [address] Performing Lab: [facility] [address] BNP 292 pg/mL H <99 Jul 03, 2024 10:32 PM [facility] FINGERSTICK GLUCOSE Specimen Type: BLOOD Comment: Save Result Nurse Notified Ordering Provider: KATELYNN PERSON Report Released Date/Time: Jul 03, 2024 10:50 PM Reporting Lab: [facility] [address] Performing Lab: [facility] [address] FINGERSTICK GLUCOSE 126 mg/dL H 70-100 Jul 03, 2024 05:33 PM [facility] FINGERSTICK GLUCOSE Specimen Type: BLOOD Comment: Save Result Nurse Notified Ordering Provider: KATLEYNN PERSON Report Released Date/Time: Jul 03, 2024 05:46 PM Reporting Lab: [facility] [id number] Performing Lab: [facility] [phone] FINGERSTICK GLUCOSE 141 mg/dL H 70-100 Jul 03, 2024 02:31 PM [facility] POC ABG/ELECTROLYTES Specimen Type: ARTERIAL BLOOD Comment: FIO2 = 97% Patient Temp: 36.0 C Sample Type = ARTERIAL Ordering Provider: MAZIN ARREDONDO Report Released Date/Time: Jul 03, 2024 01:48 PM Reporting Lab: [facility] [id number] Performing Lab: [facility] [address] POC PH 7.387 7.35-7.45 POC PCO2 34.4 [...] H 80.0-105.0 Jul 03, 2024 01:05 PM [facility] POC ABG/ELECTROLYTES Specimen Type: ARTERIAL BLOOD Comment: FIO2 = 53% Patient Temp: 36.2 C Sample Type = ARTERIAL Ordering Provider: MAZIN ARREDONDO Report Released Date/Time: Jul 03, 2024 01:48 PM Reporting Lab: [facility] [id number] Performing Lab: [facility] [address] POC PH 7.280 L 7.35-7.45 POC PCO2 [...] mm[Hg] 80.0-105.0 Jul 03, 2024 06:15 AM [facility] URINALYSIS Specimen Type: URINE No comment entered. Ordering Provider: MARYBETH POWELL Report Released Date/Time: Jun 12, 2024 04:01 PM Reporting Lab: [facility] [address] Performing Lab: [facility] [address] URINE COLOR YELLOW SPECIFIC GRAVITY 1.031 1.003-1.03 [...] 250 NEGATIVE Jul 03, 2024 06:13 AM [facility] CBC Specimen Type: BLOOD No comment entered. Ordering Provider: MARYBETH POWELL Report Released Date/Time: Jun 12, 2024 03:59 PM Reporting Lab: [facility] [phone] Performing Lab: [facility] [address] WBC 15.8 H 4.0-11.0 RBC 5.11 4.60-6.20 HGB 16.1 g/dL 13.5-17.9 HCT 49.1 41.0-54.0 MCV 96.1 fL 80.0-100.0 MCH 31.5 pg 27.0-33.0 MCHC 32.8 g/dL 32.0-37.5 PLT 357 150-400 MPV 9.8 fL 9.1-13.0 RDW 13.7 11.5-14.5 Jun 24, 2024 09:50 AM [facility] BASIC METABOLIC PANEL+MG Specimen Type: PLASMA Comment: Specimen received in Lab at: [id number] Ordering Provider: JEVON ZAZUETA Report Released Date/Time: Jun 23, 2024 06:07 PM Reporting Lab: [facility] [id number] Performing Lab: [facility] [address] CREATININE 0.8 mg/dL 0.7-1.2 UREA NITROGEN 13 mg/dL 8-26 GLUCOSE 135 mg/dL H 70-100 SODIUM 135 mmol/L L 136-145 POTASSIUM 3.6 mmol/L 3.5-5.1 CHLORIDE 103 mmol/L 98-107 CO2 24 mmol/L 22-29 CALCIUM 9.2 mg/dL 8.4-10.2 MAGNESIUM 1.9 mg/dL 1.6-2.6 ANION GAP 8 mmol/L 5-15 .CREAT EGFR(CKD-EPI) >90 >60 Jun 24, 2024 09:50 AM [facility] CBC Specimen Type: BLOOD Comment: Specimen received in Lab at: [id number] Ordering Provider: JEVON ZAZUETA Report Released Date/Time: Jun 23, 2024 06:07 PM Reporting [facility] [facility] [address] Performing Lab: [facility] [address] WBC 15.5 H 4.0-11.0 RBC 4.93 4.60-6.20 HGB 15.2 g/dL 13.5-17.9 HCT 46.5 41.0-54.0 MCV 94.3 fL 80.0-100.0 MCH 30.8 pg 27.0-33.0 MCHC 32.7 g/dL 32.0-37.5 PLT 223 150-400 MPV 11.4 fL 9.1-13.0 RDW 13.9 11.5-14.5 Jun 23, 2024 07:52 AM [facility] COMPREHENSIVE METABOLIC PANEL+MG Specimen Type: PLASMA No comment entered. Ordering Provider: JEVON ZAZUETA Report Released Date/Time: Jun 22, 2024 05:51 PM Reporting Lab: [facility] [address] Performing Lab: [facility] [address] CREATININE 0.7 mg/dL 0.7-1.2 UREA NITROGEN 16 [...] >90 >60 Jun 23, 2024 07:52 AM [facility] CBC & DIFF Specimen Type: BLOOD Comment: Automated Differential Performed Ordering Provider: JEVON ZAZUETA Report Released Date/Time: Jun 22, 2024 05:51 PM Reporting Lab: [facility] [address] Performing Lab: [facility] [address] WBC 14.9 H 4.0-11.0 RBC 5.09 4.60-6.20 [...] 0.1 0.0-0.1 Jun 22, 2024 06:10 PM [facility] COMPREHENSIVE METABOLIC PANEL+MG Specimen Type: PLASMA No comment entered. Ordering Provider: JEVON ZAZUETA Report Released Date/Time: Jun 22, 2024 05:51 PM Reporting Lab: [facility] [address] Performing Lab: [facility] [address] CREATININE 0.7 mg/dL 0.7-1.2 UREA NITROGEN 17 [...] >90 >60 Jun 22, 2024 06:10 PM [facility] CBC Specimen Type: BLOOD No comment entered. Ordering Provider: JEVON ZAZUETA Report Released Date/Time: Jun 22, 2024 05:51 PM Reporting Lab: [facility] [address] Performing Lab: [facility] [address] WBC 16.9 H 4.0-11.0 RBC 5.28 4.60-6.20 HGB 16.9 g/dL 13.5-17.9 HCT 50.4 41.0-54.0 MCV 95.5 fL 80.0-100.0 MCH 32.0 pg 27.0-33.0 MCHC 33.5 g/dL 32.0-37.5 PLT 223 150-400 MPV 10.9 fL 9.1-13.0 RDW 14.0 11.5-14.5 Jun 21, 2024 06:48 PM [facility] URINALYSIS Specimen Type: URINE No comment entered. Ordering Provider: DELIA MARTINEZ Report Released Date/Time: Jun 21, 2024 05:45 PM Reporting Lab: [facility] [address] Performing Lab: [facility] [address] URINE COLOR YELLOW SPECIFIC GRAVITY 1.041 H [...] 500 NEGATIVE Jun 21, 2024 05:34 PM [facility] POC CREATININE Specimen Type: BLOOD No comment entered. Ordering Provider: DELIA MARTINEZ Report Released Date/Time: Jun 21, 2024 06:07 PM Reporting Lab: [facility] [address] Performing Lab: [facility] [address] POC CREATININE 1.1 mg/dL 0.6-1.3 Jun 21, 2024 05:30 PM [facility] POC ABG/LACTATE Specimen Type: VENOUS BLOOD No comment entered. Ordering Provider: DELIA MARTINEZ Report Released Date/Time: Jun 21, 2024 06:07 PM Reporting Lab: [facility] [address] Performing Lab: [facility] [address] POC PH 7.470 H 7.31-7.41 POC PCO2 31.2 mm[Hg] L 41.00-51 .0 0 POC PO2 46 mm[Hg] H 35.0-40.0 POC TCO2 24 mmol/L 24.0-29.0 POC HCO3 22.7 mmol/L L 23.0-28.0 POC BE ECT -1 mmol/L POC SO2 85 H 70-75 POC LACTATE 1.85 mmol/L 0.90-1.70 Jun 21, 2024 05:24 PM [facility] PROTHROMBIN TIME/INR Specimen Type: PLASMA No comment entered. Ordering Provider: DELIA MARTINEZ Report Released Date/Time: Jun 21, 2024 05:30 PM Reporting Lab: [facility] [address] Performing Lab: [facility] [address] .INR 1.2 H 0.8-1.1 .PT 13.9 s H 9.4-12.5 Jun 21, 2024 05:24 PM [facility] LIPASE Specimen Type: PLASMA No comment entered. Ordering Provider: DELIA MARTINEZ Report Released Date/Time: Jun 21, 2024 05:30 PM Reporting Lab: [facility] [address] Performing Lab: [facility] [address] LIPASE 32 U/L <60 Jun 21, 2024 05:24 PM [facility] EXTRA GOLD GEL TUBE Specimen Type: SERUM No comment entered. Ordering Provider: DELIA MARTINEZ Report Released Date/Time: Jun 21, 2024 05:41 PM Reporting Lab: [facility] [address] Performing Lab: [facility] [address] EXTRA GOLD GEL TUBE RECEIVED Jun 21, 2024 05:24 PM [facility] COMPREHENSIVE METABOLIC PANEL+MG Specimen Type: PLASMA No comment entered. Ordering Provider: DELIA MARTINEZ Report Released Date/Time: Jun 21, 2024 05:30 PM Reporting Lab: [facility] [address] Performing Lab: [facility] [address] CREATININE 0.9 mg/dL 0.7-1.2 UREA NITROGEN 29 [...] mg/dL <0.5 Jun 21, 2024 05:24 PM [facility] CBC & DIFF Specimen Type: BLOOD Comment: Manual Differential Performed Ordering Provider: DELIA MARTINEZ Report Released Date/Time: Jun 21, 2024 05:30 PM Reporting Lab: [facility] [address] Performing Lab: [facility] [address] WBC 21.3 H 4.0-11.0 RBC 5.48 4.60-6.20 [...] 16, 2024 12:17 PM 0 [facility] Social History: Smoking [...] 15, 2024 08:30 AM VA-TOBACCO FORMER USER [facility] Tobacco [...] QUIT 15 YRS OR MORE [facility] May 06, 2023 11:30 AM VA-TOBACCO FORMER USER [facility] May 06, 2023 11:30 AM VA-TOBACCO [...] 06:15 PM CHEST 1 VIEW: FLACA WEAVER [id number] -1950 M Exm Date: JUL 18, 2024@18:15 Req Phys: LEISA GOLDEN Pat Loc: 07-18-2024@19:00 Img Loc: MAIN X-RAY Service: PRIMARY [place] [address] (Case [id number] COMPLETE) CHEST 1 VIEW (RAD Detailed) CPT:24120 Proc Modifiers : PORTABLE EXAM Reason for Study: SOB Clinical History: IS NOT under investigation for COVID-19 or is COVID-19 negative 73 yo with SOB Responsible provider name and phone number to notify for critical findings if other than user placing the order and pager listed below: User placing orders pager: [phone] LAST CREATININE 1.2 (07/17/24) Report Status: Verified Date Reported: JUL 18, 2024 Date Verified: JUL 18, 2024 Domestic Helper E-Sig:/ES/CARLOS A CUNNINGHAM DO Report: EXAMINATION: CHEST 1 VIEW Reason for Study: SOB Wishek IS NOT under investigation for COVID-19 or is COVID-19 negative 73 yo with SOB Responsible provider name and phone number to notify for critical findings if other than user placing the order and pager listed below: User placing orders pager: [phone] LAST CREATININE 1.2 (07/17/24) SOB TECHNIQUE: Single [...] Interpreting Staff: CARLOS A CUNNINGHAM DO, RADIOLOGIST (Domestic Helper) /KMB CARLOS A CUNNINGHAM [facility] Jul 16, 2024 07:49 AM [facility] CT ABDOMEN/PELVIS: MEGFLACA YAMIL [id number] -1950 M Exm Date: JUL 16, 2024@07:49 Req Phys: JATINDER CABRERA Loc: 3E07-17-2024@09:02 [facility] [place]: OUTSOURCE CT Service: Unknown (Case [id number] COMPLETE) NON DC CT ABDOMEN/PELVIS (CT Detailed) CPT:18586 Reason for Study: outside study Clinical History: [...] VERIFIED BY: / *ELECTRONICALLY FILED* [facility] Jul 13, 2024 09:41 AM [facility] CT ABDOMEN/PELVIS: MEGFLACADARCI LOBO [id number] -1950 M Exm Date: JUL 13, 2024@09:41 Req Phys: JATINDER CABRERA Amanda Loc: 3ES07-17-2024@09:08 Img Loc: OUTSOURCE CT Service: Unknown (Case [id number] COMPLETE) NON DC CT ABDOMEN/PELVIS (CT Detailed) CPT:91020 Reason for Study: outside study Clinical History: [...] VERIFIED BY: / *ELECTRONICALLY FILED* [facility] Jul 08, 2024 10:09 AM CHEST 2 VIEWS PA AND LAT: MEGFLACA YAMIL [id number] -1950 M Exm Date: JUL 08, 2024@10:09 Req Phys: KATELYNN PERSON Loc: 2K07-08-2024@11:49 Img Loc: MAIN X-RAY Service: [place] [address] (Case [id number] COMPLETE) CHEST 2 VIEWS PA AND LAT (RAD Detailed) CPT:07102 Reason for Study: Uptrending WBC, POD 5 Clinical History: Wishek IS NOT under investigation for COVID-19 or is COVID-19 negative POD 5, work up for uptrending wbc Responsible provider name and phone number to notify for critical findings if other than user placing the order and pager listed below: User placing orders pager: Katelynn Person LAST CREATININE 0.9 (07/07/24) Report Status: Verified Date Reported: JUL 08, 2024 Date Verified: JUL 08, 2024 Domestic Helper E-Sig: Report: CHEST 2 VIEWS PA [...] cardiopulmonary disease. READING PHYSICIAN: Sarbjit Vaughn M.D. -[phone] 07/08/2024 12:46 [facility] National Teleradiology Program [phone] (For Medical Practitioner Use Only) Attention Patients / Veterans: If you have questions or concerns about these test results, please contact your ordering provider or primary care team. Primary Interpreting Staff: RADIOLOGY,OUTSIDE SERVICE, Staff Physician / RADIOLOGY,OUTSIDE SERVICE [facility] Jul 08, 2024 10:[address] (AP) ABDOMEN/PELVIS W CONTRAST: MEGFLACADARCI LOBO [id number] -1950 M Exm Date: JUL 08, 2024@10:00 Req Phys: KATELYNN PERSON [facility] Loc: [facility]/07-08-2024@12:07 Img Loc: CT IMAGING Service: [place] [address] (Case [id number] COMPLETE) CT (AP) ABDOMEN/PELVIS W CONTRAST(CT Detailed) CPT:88496 Contrast Media : Non-ionic Iodinated Reason for [...] PLASMA .CREAT EGFR(CKD-E >90 Ref: >=60 Allergies: ([place] only) TERAZOSIN (Mar 13, 2015) Report Status: Verified Date Reported: JUL 08, 2024 Date Verified: JUL 08, 2024 Domestic Helper E-Sig: Report: CT (AP) ABDOMEN/PELVIS W [...] as noted above READING PHYSICIAN: Celestino Blanc -[phone] 07/08/2024 13:04 [facility] National Teleradiology Program [phone] (For Medical Practitioner Use Only) Attention Patients / Veterans: If you have questions or concerns about these test results, please contact your ordering provider or primary care team. Primary Interpreting Staff: RADIOLOGY,OUTSIDE SERVICE, Staff Physician / RADIOLOGY,OUTSIDE SERVICE [facility] Jun 22, 2024 11:49 AM ABSCESS DRAIN PLACEMENT PERITONEAL (P): FLACA WEAVER [id number] -1950 M Exm Date: JUN 22, 2024@11:49 Req Phys: ANGELA HOLDEN Loc: [facility]06-22-2024@17:14 Img Loc: INTERVENTIONAL RADIOLOGY Service: [place] [address] (Case [id number] COMPLETE) IR PERITONEAL/RETROPERITONEAL PER(ANI Detailed) CPT:48750 Reason for Study: diverticulitis with abscess (Case [id number] COMPLETE) IR MOD SEDATION 10-22 MIN (ANI Detailed) CPT:26237 Clinical History: IS NOT under investigation for COVID-19 or is COVID-19 negative 73 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 please place abscess drain. Contact number for responsible provider who can be reached for any questions or notifications of critical findings: [phone] n/a LAST CREATININE 0.9 (06/21/24) Report Status: Verified Date Reported: JUN 22, 2024 Date Verified: JUN 22, 2024 Domestic Helper E-Sig:/ES/LISA PENDLETON MD Report: PROCEDURES: Placement [...] Using real-time CT fluoroscopy, a 5 Dominican [place].comesis catheter was advanced into the collection in [...] Primary Interpreting Staff: LISA PENDLETON MD, RADIOLOGIST (Domestic Helper) /JRLISA [facility] Jun 22, 2024 11:[address] NEEDLE PLACEMENT (P): MEGFLACA YAMIL [id number] -1950 M Exm Date: JUN 22, 2024@11:48 Req Phys: ANGELA HOLDEN Loc: [facility]/06-22-2024@17:14 [facility] [place] Loc: CT IMAGING Service: [place] [address] (Case [id number] COMPLETE) CT SCAN FOR NEEDLE PLACEMENT (CT Detailed) CPT:34116 Reason for Study: l pelvic abscess drain Clinical History: Report Status: Verified Date Reported: JUN 22, 2024 Date Verified: JUN 22, 2024 Domestic Helper E-Sig:/ES/LISA PENDLETON MD Report: PROCEDURES: Placement [...] Using real-time CT fluoroscopy, a 5 [place].comesis catheter was advanced into the collection in [...] Primary Interpreting Staff: LISA PENDLETON MD, RADIOLOGIST (Domestic Helper) /JRT LISA PENDLETON [facility] Jun 21, 2024 06:[address] (AP) ABDOMEN/PELVIS (P): FLACA WEAVER [id number] -1950 M Exm Date: JUN 21, 2024@18:09 Req Phys: DELIA MARTINEZ Loc: [facility] EMERGENCY DEPT WALK-IN (Re Img Loc: CT IMAGING Service: [place] [address] (Case [id number] COMPLETE) CT (AP) ABDOMEN/PELVIS W CONTRAST(CT Detailed) CPT:67229 Contrast Media : Non-ionic Iodinated Reason for [...] PLASMA .CREAT EGFR(CKD-E >90 Ref: >=60 Allergies: ([place] only) TERAZOSIN (Mar 13, 2015) Defer to [...] 21, 2024 Date Verified: JUN 21, 2024 Domestic Helper E-Sig:/ES/CARLOS A CUNNINGHAM DO Report: EXAMINATION: [...] Interpreting Staff: CARLOS A CUNNINGHAM DO, RADIOLOGIST (Domestic Helper) /CARLOS A ROWELL [facility] Pathology Reports: +/- 30 days [...] PM LR MICROBIOLOGY RE PORT: Reporting Lab: [facility] [CLIA# [id number]] [place] [address] Accession [UID]: [id number] [[id number]] Received: Jul 16, 2024@14:41 Collection sample: BLOOD Collection date: Jul 16, 2024 14:07 Provider: LEISA GOLDEN Comment on specimen: R AC, RECEIVED 2 BLOOD CULTURE BOTTLES Test(s) ordered: CULTURE & SUSCEPTIBILITY...... completed: Jul 22, 2024 * BACTERIOLOGY FINAL REPORT => Jul 22, 2024 13:39 TECH CODE: [id number] CULTURE RESULTS: NO GROWTH 5 DAYS Bacteriology Remark(s): THIS REPORT IS FINAL =--=--=--=--=--=--=--=--=--= --=--=--=--=--=--=--=--=--=- -=--=--=--=--=--=--=-- Performing Laboratory: Bacteriology Report Performed By: [facility] [CLIA# [id number]] [place] [address] [facility] Jul 16, 2024 01:54 PM LR MICROBIOLOGY RE PORT: Reporting Lab: [facility] [IA# [id number]] [place] [address] Accession [UID]: [id number] [[id number]] Received: Jul 16, 2024@14:41 Collection sample: BLOOD Collection date: Jul 16, 2024 13:54 Provider: LEISA GOLDEN Comment on specimen: L AC, RECEIVED 2 BLOOD CULTURE BOTTLES Test(s) ordered: CULTURE & SUSCEPTIBILITY...... completed: Jul 22, 2024 * BACTERIOLOGY FINAL REPORT => Jul 22, 2024 13:39 TECH CODE: [id number] CULTURE RESULTS: NO GROWTH 5 DAYS Bacteriology Remark(s): THIS REPORT IS FINAL =--=--=--=--=--=--=--=--=--= --=--=--=--=--=--=--=--=--=- -=--=--=--=--=--=--=-- Performing Laboratory: Bacteriology Report Performed By: [facility] [CLIA# [id number]] [place] [address] [facility] Jul 03, 2024 05:59 AM LR SURGICAL PATHOL OGY REPORT: LOCAL TITLE: LR SURGICAL PATHOLOGY REPORT STANDARD TITLE: PATHOLOGY REPORT DATE OF NOTE: JUL 06, 2024@10:40:48 ENTRY DATE: JUL 06, 2024@10:40:48 AUTHOR: EDUARDO PALOMARES EXP COSIGNER: URGENCY: STATUS: COMPLETED $APHDR Reporting Lab: [facility] [IA# [id number]] [place] [address] - - - - - - - [...] - PATHOLOGY REPORT Accession No. [id number] - - - - - - - [...] - PATHOLOGY REPORT Accession No. [id number] - - - - - - - [...] circumferential surgical margin, en face; E-F: Manager Pulmonary diverticula; G: Manager Pulmonary section of mesentery; H: Random major account representative section of additional adipose tissue [...] transversely. [facility]: Microscopic examination performed. DIAGNOSIS: 1. Colon, sigmoid, sigmoidectomy-- - Diverticulosis with perforation and focal abscess formation 2. Colon, anastomotic rings, excision-- - Viable colonic mucosa without diagnostic abnormality /es/ EDUARDO PALOMARES MD STAFF PATHOLOGIST Signed Jul 06, 2024@10:40 Performing Laboratory: Surgical Pathology Report Performed By: [facility] [CLIA# [id number]] [place] [address] $FTR - - - - - - [...] - - FLACA WEAVER STANDARD FORM 515 ID:[id number] SEX:M :1950 AGE: 73 LOC:52578 ADM:Jun DX:DIVERTICULITIS PCP: Jatinder Cabrera /alexi/ EDUARDO PALOMARES MD STAFF PATHOLOGIST Signed: 07/06/2024 10:40 EDUARDO PALOMARES [facility] Jun 22, 2024 01:15 PM LR MICROBIOLOGY RE PORT: Reporting Lab: [facility] [CLIA# [id number]] [place] [address] Accession [UID]: [id number] [[id number]] Received: Jun 22, 2024@13:38 Collection sample: FLUID Collection date: Jun 22, 2024 13:15 Provider: ANGELA HOLDEN Comment on specimen: LLQ ABSCESS, RECEIVED IN ANAEROBIC TRANSPORT VIAL Test(s) ordered: GRAM STAIN.................... completed: Jun 22, 2024 15:03 CULTURE & SUSCEPTIBILITY...... completed: Jun 25, 2024 * BACTERIOLOGY FINAL REPORT => Jun 25, 2024 10:56 TECH CODE: [id number] GRAM STAIN: DIRECT SMEAR of specimen before [...] -=--=--=--=--=--=--=-- Performing Laboratory: Bacteriology Report Performed By: [facility] [CLIA# [id number]] [facility] [place] [address] [facility] Jun 22, 2024 01:15 PM LR MICROBIOLOGY RE PORT: Reporting Lab: [facility] [CLIA# [id number]] [place] [address] Accession [UID]: [id number] [[id number]] Received: Jun 22, 2024@13:38 Collection sample: FLUID Collection date: Jun 22, 2024 13:15 Provider: ANGELA HOLDEN Comment on specimen: LLQ ABSCESS, RECEIVED IN ANAEROBIC TRANSPORT VIAL Test(s) ordered: ANAEROBIC CULTURE............. completed: Jun 28, 2024 * BACTERIOLOGY FINAL REPORT => Jun 28, 2024 10:08 TECH CODE: [id number] CULTURE RESULTS: HEAVY GROWTH MIXED ANAEROBES Comment: including the followin+ Bacteroides fragilis 4+ Bacteroides vulgatus 4+ Clostridium innocuum Beta-lactamase negative 4+ Bacteroides caccae 4+ Parvimonas micra 4+ Bacteroides uniformis 4+ Gemella morbillorum 4+ anaerobic small, Gram Positive Rods 4+ Bacteroides thetaiotaomicron Standard workup is now complete. Bacteriology Remark(s): THIS REPORT IS FINAL =--=--=--=--=--=--=--=--=--= --=--=--=--=--=--=--=--=--=- -=--=--=--=--=--=--=-- Performing Laboratory: Bacteriology Report Performed By: [facility] [CLIA# [id number]] [place] [address] [facility] Jun 21, 2024 06:12 PM LR MICROBIOLOGY RE PORT: Reporting Lab: [facility] [CLIA# [id number]] [place] [address] Accession [UID]: [id number] [[id number]] Received: Jun 21, 2024@18:12 Collection sample: BLOOD [...] -=--=--=--=--=--=--=-- Performing Laboratory: Bacteriology Report Performed By: [facility] [CLIA# [id number]] [place] [address] [facility] Jun 21, 2024 06:11 PM LR MICROBIOLOGY RE PORT: Reporting Lab: [facility] [CLIA# [id number]] [place] [address] Accession [UID]: [id number] [[id number]] Received: Jun 21, 2024@18:11 Collection sample: BLOOD [...] -=--=--=--=--=--=--=-- Performing Laboratory: Bacteriology Report Performed By: [facility] [CLIA# [id number]] [place] [address] [facility] Encounter Notes: All associated encounter notes This section contains the clinical notes associated to the Encounter. Date/Time Encounter Note(s) Provider Source Jul 16, 2024 03:10 PM PHARMACY MEDICATIO N MGT NOTE: LOCAL TITLE: PHARMACY PHARMACOKINETICS NOTE STANDARD TITLE: PHARMACY MEDICATION MGT NOTE DATE OF NOTE: JUL 16, 2024@15:10 ENTRY DATE: JUL 16, 2024@15:10:20 AUTHOR: JOSIE DAY EXP COSIGNER: URGENCY: STATUS: COMPLETED PHARMACY PHARMACOKINETICS NOTE Has ADDENDA Pharmacokinetic estimate for VANCOMYCIN Intravenous dosing Visit Type: Chart Review HISTORY: Diagnosis: Sepsis Current status of patient with respect to infection, any culture data : risk: Female over the age of 52 or Male of any age (may use premixed vancomycin) Transferring from other facility on vancomycin: 1750mg given at 10:33 07/16/24 at [facility] ED. Patient Age: 73 Height: 70 in [177.8 cm] (06/08/2024 11:43) Weight: 205.6 lb [93.26 kg] (07/03/2024 06:30) CREATININE 0.7 (07/10/24) Dose weight =65.7kg No data available for: CYSTATIN C ASSESSMENT: Based on the above, estimated CrCl ~ 68 ml/min Estimated volume of distribution ~ 52 Liters Estimated elimination half-life of vancomycin ~ 11.1 hours Renal function is assessed to be stable Desired AUC to maximize efficacy and minimize likelihood of toxicity 400-600 mg* 24hr/L PLAN: Loading dose of 1750mg, at OSH followed by a maintenance regimen of 750mg every 12 hours for estimated AUC of 457. Pharmacy will continue to manage vancomycin dosing and order serum levels if needed. Time spent reviewing chart: 15 minutes Please note that Vancomycin requires Infectious Disease STAFF approval for use beyond 3 days. Vancomycin CPRS order will automatically on Jun at 12 noon if not ID STAFF approved. /alexi/ JOSIE DAY Pharmacist, BCPS Signed: 07/16/2024 15:19 07/16/2024 ADDENDUM STATUS: COMPLETED Update: Today's Scr resulted back at 2, which is significantly higher than his previous Scr labs. His kinetics are greatley affected and the following are recalculations using the current Scr of 2 Based on the above, estimated CrCl ~ 35 ml/min Estimated volume of distribution ~ 64.9 Liters Estimated elimination half-life of vancomycin ~ 19.3 hours Renal function is assessed to be elevated above baseline. I changed this maintenance regimen to 1250mg q24h to start tomorrow 07/17/24 at 0900 for an estimated AUC of 535. Thank you! /jerome DAY Pharmacist, BCPS Signed: 07/16/2024 15:47 07/17/2024 ADDENDUM STATUS: COMPLETED Update 07/17: Scr 1.3 (baseline ~0.7-0.9) Based on the above, estimated CrCl ~ 53 ml/min Estimated elimination half-life of vancomycin ~ 14 hours Renal function is assessed to be slightly above baseline, but improving significantly. PLAN: Will change dose to 1000mg q12h starting tonight (07/17 @2100) for new AUC ~ 600mg*24hr/L. /alexi/ JAY ABARCA PHARMACIST Signed: 07/17/2024 12:47 JOSIE DAY [facility]
--- OUTSIDE RECORDS SUMMARY | 2024-08-01 07:54 | XMS_ITS ---
[place] DAILY HOSPITALIZATION DATA [facility] Encounter Summary Created on: August 01, 2024 MEG FLACADARCI LOBO : 1950 Sex: Male Author Name [facility] Address [address] [place] [address] Care Team Providers Care Air Traffic Instructor Name Role Phone JATINDER CABRERA Primary [...] PART A Sep 29, 2016 PART A [phone] JUDY WEAVER PATIENT Selected Encounter This section includes the information on record at [place] for the Encounter. Date/Time Encounter Type Encounter Description Reason Pro vider Source Jul 16, 2024 12:20 PM Inpatient Visit DAILY HOSPITALIZATION DATA IHE [...] Chemi stry Order URINALYSIS URINE WC ONCE [facility] Jun 12, 2024 12:00 AM Laboratory - Chemi stry Order BNP PLASMA SP ONCE [facility] Jun 21, 2024 05:45 PM Laboratory - Blood Bank Order TYPE & SCREEN - LAB BLOOD WC [facility] Jul 03, 2024 12:00 AM Laboratory - Blood Bank Order TYPE & SCREEN - LAB BLOOD WC [facility] Jul 16, 2024 12:00 AM [...] Jul 20, 2024 06:50 PM Reporting Lab: [facility] [address] Performing Lab: [facility] [address] CREATININE 0.8 mg/dL 0.7-1.2 UREA NITROGEN 31 [...] Jul 20, 2024 06:50 PM Reporting Lab: [facility] [address] Performing Lab: [facility] [address] WBC 16.0 H 4.0-11.0 RBC 5.16 4.60-6.20 [...] Jul 20, 2024 08:22 AM Reporting Lab: [facility] [address] Performing Lab: [facility] [address] SODIUM,URINE RANDOM <20 mmol/L Jul 20, 2024 01:00 PM [facility] OSMOLALITY,URINE Specimen Type: URINE No comment entered. Ordering Provider: SARAI GOLDEN Report Released Date/Time: Jul 20, 2024 08:22 AM Reporting Lab: [facility] [address] Performing Lab: [facility] [address] OSMOLALITY,URIN E 648 mosm/kg 500-800 Jul 20, 2024 06:45 AM [facility] BASIC METABOLIC PANEL+MG Specimen Type: PLASMA No comment entered. Ordering Provider: SARAI GOLDEN Report Released Date/Time: Jul 19, 2024 06:13 PM Reporting Lab: [facility] [address] Performing Lab: [facility] [address] CREATININE 0.8 mg/dL 0.7-1.2 UREA NITROGEN 36 [...] Jul 19, 2024 06:13 PM Reporting Lab: [facility] [address] Performing Lab: [facility] [address] WBC 16.6 H 4.0-11.0 RBC 4.96 4.60-6.20 [...] Jul 20, 2024 09:47 AM Reporting Lab: [facility] [address] Performing Lab: [facility] [address] OSMOLALITY,SERU M 266 mosm/kg L 276-305 Jul 19, 2024 08:57 AM [facility] BASIC METABOLIC PANEL+MG Specimen Type: PLASMA No comment entered. Ordering Provider: SARAI GOLDEN Report Released Date/Time: Jul 18, 2024 10:24 PM Reporting Lab: [facility] [address] Performing Lab: [facility] [address] CREATININE 1.0 mg/dL 0.7-1.2 UREA NITROGEN 40 [...] Type: BLOOD No comment entered. Ordering Provider: ASRAI GOLDEN Report Released Date/Time: Jul 18, 2024 10:24 PM Reporting Lab: [facility] [address] Performing Lab: [facility] [address] WBC 17.3 H 4.0-11.0 RBC 4.83 4.60-6.20 [...] Jul 17, 2024 01:54 PM Reporting Lab: [facility] [address] Performing Lab: [facility] [address] PHOSPHORUS 2.9 mg/dL 2.3-4.3 Jul 17, 2024 06:55 PM [facility] BASIC METABOLIC PANEL+MG Specimen Type: PLASMA No comment entered. Ordering Provider: SARAI GOLDEN Report Released Date/Time: Jul 17, 2024 01:54 PM Reporting Lab: [facility] [address] Performing Lab: [facility] [address] CREATININE 1.2 mg/dL 0.7-1.2 UREA NITROGEN 62 [...] Jul 16, 2024 04:52 PM Reporting Lab: [facility] [address] Performing Lab: [facility] [address] WBC 18.9 H 4.0-11.0 RBC 5.55 4.60-6.20 [...] Jul 16, 2024 12:12 PM Reporting Lab: [facility] [address] Performing Lab: [facility] [address] ALBUMIN 4.3 g/dL 3.5-5.0 Jul 17, 2024 07:00 AM [facility] COMPREHENSIVE METABOLIC PANEL+MG Specimen Type: PLASMA No comment entered. Ordering Provider: SARAI GOLDEN Report Released Date/Time: Jul 16, 2024 04:52 PM Reporting Lab: [facility] [address] Performing Lab: [facility] [address] CREATININE 1.3 mg/dL H 0.7-1.2 UREA NITROGEN [...] Jul 16, 2024 12:12 PM Reporting Lab: [facility] [address] Performing Lab: [facility] [address] LACTIC ACID 0.9 mmol/L 0.5-2.2 Jul 16, 2024 02:14 PM [facility] MRSA SURVL NARES DNA Specimen Type: NARES No comment entered. Ordering Provider: SARAI GOLDEN Report Released Date/Time: Jul 16, 2024 12:12 PM Reporting Lab: [facility] [address] Performing Lab: [facility] [address] MRSA SURVL NARES DNA NEGATIVE Negative Jul 16, 2024 02:10 PM [facility] LACTIC ACID Specimen Type: PLASMA No comment entered. Ordering Provider: SARAI GOLDEN Report Released Date/Time: Jul 16, 2024 12:12 PM Reporting Lab: [facility] [address] Performing Lab: [facility] [address] LACTIC ACID 0.9 mmol/L 0.5-2.2 Jul 16, 2024 02:08 PM [facility] COMPREHENSIVE METABOLIC PANEL+MG Specimen Type: PLASMA No comment entered. Ordering Provider: SARAI GOLDEN Report Released Date/Time: Jul 16, 2024 12:12 PM Reporting Lab: [facility] [address] Performing Lab: [facility] [address] CREATININE 2.0 mg/dL H 0.7-1.2 UREA NITROGEN [...] Jul 16, 2024 12:12 PM Reporting Lab: [facility] [address] Performing Lab: [facility] [address] WBC 19.7 H 4.0-11.0 RBC 5.39 4.60-6.20 [...] Jul 09, 2024 12:23 PM Reporting Lab: [facility] [address] Performing Lab: [facility] [address] PHOSPHORUS 3.0 mg/dL 2.3-4.3 Jul 10, 2024 07:16 AM [facility] BASIC METABOLIC PANEL+MG Specimen Type: PLASMA No comment entered. Ordering Provider: JUANCARLOS ECHOLS S Report Released Date/Time: Jul 09, 2024 12:23 PM Reporting Lab: [facility] [address] Performing Lab: [facility] [address] CREATININE 0.7 mg/dL 0.7-1.2 UREA NITROGEN 27 [...] Jul 09, 2024 12:23 PM Reporting Lab: [facility] [address] Performing Lab: [facility] [address] WBC 18.8 H 4.0-11.0 RBC 5.08 4.60-6.20 [...] Jul 08, 2024 06:18 PM Reporting Lab: [facility] [address] Performing Lab: [facility] [address] WBC 15.3 H 4.0-11.0 RBC 4.91 4.60-6.20 [...] Jul 08, 2024 08:41 AM Reporting Lab: [facility] [address] Performing Lab: [facility] [address] URINE COLOR YELLOW SPECIFIC GRAVITY >1.050 H [...] Jul 07, 2024 04:49 PM Reporting Lab: [facility] [address] Performing Lab: [facility] [address] WBC 17.5 H 4.0-11.0 RBC 4.88 4.60-6.20 [...] Jul 07, 2024 04:49 PM Reporting Lab: [facility] [address] Performing Lab: [facility] [address] PHOSPHORUS 2.6 mg/dL 2.3-4.3 Jul 08, 2024 09:54 AM [facility] BASIC METABOLIC PANEL+MG Specimen Type: PLASMA Comment: Specimen received in Lab at: 0952 Ordering Provider: JUANCARLOS ECHOLS Report Released Date/Time: Jul 07, 2024 04:49 PM Reporting Lab: [facility] [address] Performing Lab: [facility] [address] CREATININE 0.9 mg/dL 0.7-1.2 UREA NITROGEN 26 [...] Jul 07, 2024 12:26 PM Reporting Lab: [facility] [address] Performing Lab: [facility] [address] C DIFF TOX B GENE PCR NEGATIVE Negative Jul 07, 2024 07:41 AM [facility] PHOSPHORUS Specimen Type: PLASMA No comment entered. Ordering Provider: JEVON ZAZUETA Report Released Date/Time: Jul 06, 2024 03:44 PM Reporting Lab: [facility] [address] Performing Lab: [facility] [address] PHOSPHORUS 3.1 mg/dL 2.3-4.3 Jul 07, 2024 07:41 AM [facility] BASIC METABOLIC PANEL+MG Specimen Type: PLASMA No comment entered. Ordering Provider: JEVON ZAZUETA Report Released Date/Time: Jul 06, 2024 03:44 PM Reporting Lab: [facility] [address] Performing Lab: [facility] [address] CREATININE 0.9 mg/dL 0.7-1.2 UREA NITROGEN 20 [...] Jul 06, 2024 03:44 PM Reporting Lab: [facility] [address] Performing Lab: [facility] [address] WBC 21.2 H 4.0-11.0 RBC 5.09 4.60-6.20 [...] Jul 05, 2024 01:22 PM Reporting Lab: [facility] [address] Performing Lab: [facility] [address] WBC 18.0 H 4.0-11.0 RBC 4.83 4.60-6.20 [...] Jul 05, 2024 01:22 PM Reporting Lab: [facility] [address] Performing Lab: [facility] [address] PHOSPHORUS 3.6 mg/dL 2.3-4.3 Jul 06, 2024 07:21 AM [facility] BASIC METABOLIC PANEL+MG Specimen Type: PLASMA No comment entered. Ordering Provider: JEVON ZAZUETA Report Released Date/Time: Jul 05, 2024 01:22 PM Reporting Lab: [facility] [address] Performing Lab: [facility] [address] CREATININE 0.7 mg/dL 0.7-1.2 UREA NITROGEN 12 [...] Jul 04, 2024 09:39 AM Reporting Lab: [facility] [address] Performing Lab: [facility] [address] MAGNESIUM 2.0 mg/dL 1.6-2.6 Jul 05, 2024 07:17 AM [facility] PHOSPHORUS Specimen Type: PLASMA No comment entered. Ordering Provider: JUANCARLOS ECHOLS S Report Released Date/Time: Jul 04, 2024 09:39 AM Reporting Lab: [facility] [address] Performing Lab: [facility] [address] PHOSPHORUS 2.0 mg/dL L 2.3-4.3 Jul 05, 2024 07:17 AM [facility] BASIC METABOLIC PANEL+MG Specimen Type: PLASMA No comment entered. Ordering Provider: JUANCARLOS ECHOLS S Report Released Date/Time: Jul 04, 2024 09:39 AM Reporting Lab: [facility] [address] Performing Lab: [facility] [address] CREATININE 0.7 mg/dL 0.7-1.2 UREA NITROGEN 12 [...] Jul 04, 2024 09:39 AM Reporting Lab: [facility] [address] Performing Lab: [facility] [address] WBC 18.3 H 4.0-11.0 RBC 4.49 L [...] Jul 03, 2024 06:31 PM Reporting Lab: [facility] [address] Performing Lab: [facility] [address] CREATININE 0.7 mg/dL 0.7-1.2 UREA NITROGEN 16 [...] Jul 03, 2024 06:31 PM Reporting Lab: [facility] [address] Performing Lab: [facility] [address] PHOSPHORUS 2.8 mg/dL 2.3-4.3 Jul 04, 2024 07:16 AM [facility] CBC Specimen Type: BLOOD No comment entered. Ordering Provider: GABINO CAMERON Report Released Date/Time: Jul 03, 2024 06:31 PM Reporting Lab: [facility] [address] Performing Lab: [facility] [address] WBC 20.6 H 4.0-11.0 RBC 4.63 4.60-6.20 [...] Jul 03, 2024 06:31 PM Reporting Lab: [facility] [address] Performing Lab: [facility] [address] WBC 20.6 H 4.0-11.0 RBC 4.63 4.60-6.20 [...] Jul 03, 2024 06:31 PM Reporting Lab: [facility] [address] Performing Lab: [facility] [address] BNP 292 pg/mL H <99 Jul 03, 2024 10:32 PM [facility] FINGERSTICK GLUCOSE Specimen Type: BLOOD Comment: Save Result Nurse Notified Ordering Provider: KATELYNN PERSON Report Released Date/Time: Jul 03, 2024 10:50 PM Reporting Lab: [facility] [address] Performing Lab: [facility] [address] FINGERSTICK GLUCOSE 126 mg/dL H 70-100 Jul 03, 2024 05:33 PM [facility] FINGERSTICK GLUCOSE Specimen Type: BLOOD Comment: Save Result Nurse Notified Ordering Provider: KATELYNN PERSON Report Released Date/Time: Jul 03, 2024 05:46 PM Reporting Lab: [facility] [address] Performing Lab: [facility] [address] FINGERSTICK GLUCOSE 141 mg/dL H 70-100 Jul 03, 2024 02:31 PM [facility] POC ABG/ELECTROLYTES Specimen Type: ARTERIAL BLOOD Comment: FIO2 = 97% Patient Temp: 36.0 C Sample Type = ARTERIAL Ordering Provider: MAZIN ARREDONDO Report Released Date/Time: Jul 03, 2024 01:48 PM Reporting Lab: [facility] [address] Performing Lab: [facility] [address] POC PH 7.387 7.35-7.45 POC PCO2 34.4 [...] Jul 03, 2024 01:48 PM Reporting Lab: [facility] [address] Performing Lab: [facility] [address] POC PH 7.280 L 7.35-7.45 POC PCO2 [...] Jun 12, 2024 04:01 PM Reporting Lab: [facility] [address] Performing Lab: [facility] [address] URINE COLOR YELLOW SPECIFIC GRAVITY 1.031 1.003-1.03 [...] Jun 12, 2024 03:59 PM Reporting Lab: [facility] [address] Performing Lab: [facility] [address] WBC 15.8 H 4.0-11.0 RBC 5.11 4.60-6.20 HGB 16.1 g/dL 13.5-17.9 HCT 49.1 41.0-54.0 MCV 96.1 fL 80.0-100.0 MCH 31.5 pg 27.0-33.0 MCHC 32.8 g/dL 32.0-37.5 PLT 357 150-400 MPV 9.8 fL 9.1-13.0 RDW 13.7 11.5-14.5 Jun 24, 2024 09:50 AM [facility] BASIC METABOLIC PANEL+MG Specimen Type: PLASMA Comment: Specimen received in Lab at: 0948 Ordering Provider: JEVON ZAZUETA Report Released Date/Time: Jun 23, 2024 06:07 PM Reporting Lab: [facility] [address] Performing Lab: [facility] [address] CREATININE 0.8 mg/dL 0.7-1.2 UREA NITROGEN 13 mg/dL 8-26 GLUCOSE 135 mg/dL H 70-100 SODIUM 135 mmol/L L 136-145 POTASSIUM 3.6 mmol/L 3.5-5.1 CHLORIDE 103 mmol/L 98-107 CO2 24 mmol/L 22-29 CALCIUM 9.2 mg/dL 8.4-10.2 MAGNESIUM 1.9 mg/dL 1.6-2.6 ANION GAP 8 mmol/L 5-15 .CREAT EGFR(CKD-EPI) >90 >60 Jun 24, 2024 09:50 AM [facility] CBC Specimen Type: BLOOD Comment: Specimen received in Lab at: 0948 Ordering Provider: JEVON ZAZUETA Report Released Date/Time: Jun 23, 2024 06:07 PM Reporting Lab: [facility] [address] Performing Lab: [facility] [address] WBC 15.5 H 4.0-11.0 RBC 4.93 4.60-6.20 HGB 15.2 g/dL 13.5-17.9 HCT 46.5 41.0-54.0 MCV 94.3 fL 80.0-100.0 MCH 30.8 pg 27.0-33.0 MCHC 32.7 g/dL 32.0-37.5 PLT 223 150-400 MPV 11.4 fL 9.1-13.0 RDW 13.9 11.5-14.5 Jun 23, 2024 07:52 AM [facility] COMPREHENSIVE METABOLIC PANEL+MG Specimen Type: PLASMA No comment entered. Ordering Provider: JEVON ZAZUETA Report Released Date/Time: Jun 22, 2024 05:51 PM Reporting Lab: [facility] [address] Performing Lab: [facility] [address] CREATININE 0.7 mg/dL 0.7-1.2 UREA NITROGEN 16 [...] >90 >60 Jun 23, 2024 07:52 AM [facility] CBC & DIFF Specimen Type: BLOOD Comment: Automated Differential Performed Ordering Provider: JEVON ZAZUETA Report Released Date/Time: Jun 22, 2024 05:51 PM Reporting Lab: [facility] [address] Performing Lab: [facility] [address] WBC 14.9 H 4.0-11.0 RBC 5.09 4.60-6.20 [...] 0.1 0.0-0.1 Jun 22, 2024 06:10 PM [facility] CBC Specimen Type: BLOOD No comment entered. Ordering Provider: JEVON ZAZUETA Report Released Date/Time: Jun 22, 2024 05:51 PM Reporting Lab: [facility] [address] Performing Lab: [facility] [address] WBC 16.9 H 4.0-11.0 RBC 5.28 4.60-6.20 HGB 16.9 g/dL 13.5-17.9 HCT 50.4 41.0-54.0 MCV 95.5 fL 80.0-100.0 MCH 32.0 pg 27.0-33.0 MCHC 33.5 g/dL 32.0-37.5 PLT 223 150-400 MPV 10.9 fL 9.1-13.0 RDW 14.0 11.5-14.5 Jun 22, 2024 06:10 PM [facility] COMPREHENSIVE METABOLIC PANEL+MG Specimen Type: PLASMA No comment entered. Ordering Provider: JEVON ZAZUETA Report Released Date/Time: Jun 22, 2024 05:51 PM Reporting Lab: [facility] [address] Performing Lab: [facility] [address] CREATININE 0.7 mg/dL 0.7-1.2 UREA NITROGEN 17 [...] >90 >60 Jun 21, 2024 06:48 PM [facility] URINALYSIS Specimen Type: URINE No comment entered. Ordering Provider: DELIA MARTINEZ Report Released Date/Time: Jun 21, 2024 05:45 PM Reporting Lab: [facility] [address] Performing Lab: [facility] [address] URINE COLOR YELLOW SPECIFIC GRAVITY 1.041 H [...] 500 NEGATIVE Jun 21, 2024 05:34 PM [facility] POC CREATININE Specimen Type: BLOOD No comment entered. Ordering Provider: DELIA MARTINEZ Report Released Date/Time: Jun 21, 2024 06:07 PM Reporting Lab: [facility] [address] Performing Lab: [facility] [address] POC CREATININE 1.1 mg/dL 0.6-1.3 Jun 21, 2024 05:30 PM [facility] POC ABG/LACTATE Specimen Type: VENOUS BLOOD No comment entered. Ordering Provider: DELIA MARTINEZ Report Released Date/Time: Jun 21, 2024 06:07 PM Reporting Lab: [facility] [address] Performing Lab: [facility] [address] POC PH 7.470 H 7.31-7.41 POC PCO2 31.2 mm[Hg] L 41.00-51 .0 0 POC PO2 46 mm[Hg] H 35.0-40.0 POC TCO2 24 mmol/L 24.0-29.0 POC HCO3 22.7 mmol/L L 23.0-28.0 POC BE ECT -1 mmol/L POC SO2 85 H 70-75 POC LACTATE 1.85 mmol/L 0.90-1.70 Jun 21, 2024 05:24 PM [facility] PROTHROMBIN TIME/INR Specimen Type: PLASMA No comment entered. Ordering Provider: DELIA MARTINEZ Report Released Date/Time: Jun 21, 2024 05:30 PM Reporting Lab: [facility] [address] Performing Lab: [facility] [address] .INR 1.2 H 0.8-1.1 .PT 13.9 s H 9.4-12.5 Jun 21, 2024 05:24 PM [facility] LIPASE Specimen Type: PLASMA No comment entered. Ordering Provider: DELIA MARTINEZ Report Released Date/Time: Jun 21, 2024 05:30 PM Reporting Lab: [facility] [address] Performing Lab: [facility] [address] LIPASE 32 U/L <60 Jun 21, 2024 05:24 PM [facility] EXTRA GOLD GEL TUBE Specimen Type: SERUM No comment entered. Ordering Provider: DELIA MARTINEZ Report Released Date/Time: Jun 21, 2024 05:41 PM Reporting Lab: [facility] [address] Performing Lab: [facility] [address] EXTRA GOLD GEL TUBE RECEIVED Jun 21, 2024 05:24 PM [facility] COMPREHENSIVE METABOLIC PANEL+MG Specimen Type: PLASMA No comment entered. Ordering Provider: DELIA MARTINEZ Report Released Date/Time: Jun 21, 2024 05:30 PM Reporting Lab: [facility] [address] Performing Lab: [facility] [address] CREATININE 0.9 mg/dL 0.7-1.2 UREA NITROGEN 29 [...] mg/dL <0.5 Jun 21, 2024 05:24 PM [facility] CBC & DIFF Specimen Type: BLOOD Comment: Manual Differential Performed Ordering Provider: DELIA MARTINEZ Report Released Date/Time: Jun 21, 2024 05:30 PM Reporting Lab: [facility] [address] Performing Lab: [facility] [address] WBC 21.3 H 4.0-11.0 RBC 5.48 4.60-6.20 [...] Jul 16, 2024 12:17 PM Yecenia LOZANO [facility] Social History: Smoking Status (Most current) and Tobacco Use (All prior to encounter date) This section includes the most current, and the historical, smoking and tobacco- related health factors from the [place] facility where the Encounter took place. Current Smoking Status This section includes the most current smoking, or tobacco-related health factor, from the [facility] where the Encounter took place. Date/Time [...] 06:15 PM CHEST 1 VIEW: FLACA WEAVER [id number] -1950 M Exm Date: JUL 18, 2024@18:15 Req Phys: LEISA GOLDEN Loc: 3E07-18-2024@19:00 Img Loc: MAIN X-RAY Service: [place] [address] (Case [id number] COMPLETE) CHEST 1 VIEW (RAD Detailed) CPT:79695 Proc Modifiers : PORTABLE EXAM Reason for Study: SOB Clinical History: IS NOT under investigation for COVID-19 or is COVID-19 negative 73 yo with SOB Responsible provider name and phone number to notify for critical findings if other than user placing the order and pager listed below: User placing orders pager: [phone] LAST CREATININE 1.2 (07/17/24) Report Status: Verified Date Reported: JUL 18, 2024 Date Verified: JUL 18, 2024 [employer] E-Sig:/ES/CARLOS A CUNNINGHAM DO Report: EXAMINATION: CHEST 1 VIEW Reason for Study: SOB IS NOT under investigation for COVID-19 or is COVID-19 negative 73 yo with SOB Responsible provider name and phone number to notify for critical findings if other than user placing the order and pager listed below: User placing orders pager: [phone] LAST CREATININE 1.2 (07/17/24) SOB TECHNIQUE: Single [...] Interpreting Staff: CARLOS A CUNNINGHAM DO, RADIOLOGIST ([employer] Spanish Teacher) /CARLOS A ROWELL [facility] Jul 16, 2024 07:[address] [facility] [address] ABDOMEN/PELVIS: FLACA WEAVER [id number] -1950 M Exm Date: JUL 16, 2024@07:49 Req Phys: JATINDER CABRERA Loc: 07-17-2024@09:02 Img Loc: OUTSOURCE CT Service: Unknown (Case [id number] COMPLETE) NON [place] CT ABDOMEN/PELVIS (CT Detailed) CPT:66456 Reason for Study: outside study Clinical History: [...] [facility] Jul 13, 2024 09:[address] [facility] [address] ABDOMEN/PELVIS: FLACA WEAVER [id number] -1950 M Exm Date: JUL 13, 2024@09:41 Req Phys: JATINDER CABRERA Loc: 07-17-2024@09:08 Img Loc: OUTSOURCE CT Service: Unknown (Case [id number] COMPLETE) NON [place] CT ABDOMEN/PELVIS (CT Detailed) CPT:86767 Reason for Study: outside study Clinical History: [...] 2 VIEWS PA AND LAT: FLACA WEAVER [id number] -1950 M Exm Date: JUL 08, 2024@10:09 Req Phys: KATELYNN PERSON Pat Loc: 2KG/07-08-2024@11:49 Img Loc: MAIN X-RAY Service: [place] [address] (Case 24 COMPLETE) CHEST 2 VIEWS PA AND LAT (RAD Detailed) CPT:91125 Reason for Study: Uptrending WBC, POD 5 Clinical History: [place] IS NOT under investigation for COVID-19 or is COVID-19 negative POD 5, work up for uptrending wbc Responsible provider name and phone number to notify for critical findings if other than user placing the order and pager listed below: User placing orders pager: Katelynn Person LAST CREATININE 0.9 (07/07/24) Report Status: Verified Date Reported: JUL 08, 2024 Date Verified: JUL 08, 2024 [employer] E-Sig: Report: CHEST 2 VIEWS PA [...] cardiopulmonary disease. READING PHYSICIAN: Sarbjit Vaughn M.D. -[phone] 07/08/2024 12:46 EST [facility] National Teleradiology Program [phone] (For Medical Practitioner Use Only) Attention Patients / Veterans: If you have questions or concerns about these test results, please contact your ordering provider or primary care team. Primary Interpreting Staff: RADIOLOGY,OUTSIDE SERVICE, Staff Physician / RADIOLOGY,OUTSIDE SERVICE [facility] Jul 08, 2024 10:[address] (AP) ABDOMEN/PELVIS W CONTRAST: FLACA WEAVER [id number] -1950 M Exm Date: JUL 08, 2024@10:00 Req Phys: KATELYNN PERSON Pat Loc: 2K/07-08-2024@12:07 Img Loc: CT IMAGING Service: [place] [address] (Case 22 COMPLETE) CT (AP) ABDOMEN/PELVIS W CONTRAST(CT Detailed) CPT:11432 Contrast Media : Non-ionic Iodinated Reason for [...] PLASMA .CREAT EGFR(CKD-E >90 Ref: >=60 Allergies: ([place] only) TERAZOSIN (Mar 13, 2015) Report Status: Verified Date Reported: JUL 08, 2024 Date Verified: JUL 08, 2024 [employer] E-Sig: Report: CT (AP) ABDOMEN/PELVIS W [...] as noted above READING PHYSICIAN: Celestino Blanc -[id number] 07/08/2024 13:04 EST [facility] [phone] (For Medical Practitioner Use Only) Attention Patients / Veterans: If you have questions or concerns about these test results, please contact your ordering provider or primary care team. Primary Interpreting Staff: RADIOLOGY,OUTSIDE SERVICE, Staff Physician / RADIOLOGY,OUTSIDE SERVICE [facility] Jun 22, 2024 11:49 AM ABSCESS DRAIN PLACEMENT PERITONEAL (P): FLACA WEAVER [id number] -1950 M Exm Date: JUN 22, 2024@11:49 Req Phys: ANGELA HOLDEN Loc: [facility]/06-22-2024@17:14 Img Loc: INTERVENTIONAL RADIOLOGY Service: [place] [address] (Case [id number] COMPLETE) IR PERITONEAL/RETROPERITONEAL PER(ANI Detailed) CPT:09468 Reason for Study: diverticulitis with abscess (Case 3570 COMPLETE) IR MOD SEDATION 10-22 MIN (ANI Detailed) CPT:63024 Clinical History: IS NOT under investigation for COVID-19 or is COVID-19 negative 73 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 please place abscess drain. Contact number for responsible provider who can be reached for any questions or notifications of critical findings: [phone] n/a LAST CREATININE 0.9 (06/21/24) Report Status: Verified Date Reported: JUN 22, 2024 Date Verified: JUN 22, 2024 [employer] Spanish Teacher E-Sig:/ES/LISA PENDLETON MD Report: PROCEDURES: Placement [...] anesthesia. Using real-time CT fluoroscopy, a 5 Maori Yueh centesis catheter was advanced into the collection in the left pelvis. A wire was coiled in the collection. The tract into the collection was dilated to accommodate the 12 Maori locking pigtail drainage catheter. There was return [...] Primary Interpreting Staff: LISA PENDLETON MD, RADIOLOGIST ([employer] Spanish Teacher) /JRT LISA PENDLETON [facility] Jun 22, 2024 11:[address] NEEDLE PLACEMENT (P): FLACA WEAVER [id number] -1950 M Exm Date: JUN 22, 2024@11:48 Req Phys: ANGELA HOLDEN [facility] Loc: [facility]/06-22-2024@17:14 Img Loc: CT IMAGING Service: [place] [address] (Case [id number] COMPLETE) CT SCAN FOR NEEDLE PLACEMENT (CT Detailed) CPT:48497 Reason for Study: l pelvic abscess drain Clinical History: Report Status: Verified Date Reported: JUN 22, 2024 Date Verified: JUN 22, 2024 [employer] Spanish Teacher E-Sig:/ES/LISA PENDLETON MD Report: PROCEDURES: Placement [...] anesthesia. Using real-time CT fluoroscopy, a 5 Maori Kekantoesis catheter was advanced into the collection in the left pelvis. A wire was coiled in the collection. The tract into the collection was dilated to accommodate the 12 Maori locking pigtail drainage catheter. There was return [...] Primary Interpreting Staff: LISA PENDLETON MD, RADIOLOGIST ([employer] Spanish Teacher) /JRT LISA PENDLETON [facility] Jun 21, 2024 06:[address] (AP) ABDOMEN/PELVIS (P): FLACA WEAVER [id number] -1950 M Exm Date: JUN 21, 2024@18:09 Req Phys: DELIA MARTINEZ Loc: [facility] (Re Img Loc: CT IMAGING Service: [place] [address] (Case [id number] COMPLETE) CT (AP) ABDOMEN/PELVIS W CONTRAST(CT Detailed) CPT:37159 Contrast Media : Non-ionic Iodinated Reason for [...] PLASMA .CREAT EGFR(CKD-E >90 Ref: >=60 Allergies: ([facility]) TERAZOSIN (Mar 13, 2015) Defer to [...] 21, 2024 Date Verified: JUN 21, 2024 [employer]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 completed: Jul 22, 2024 * BACTERIOLOGY FINAL REPORT => Jul 22, 2024 13:39 TECH CODE: [id number] CULTURE RESULTS: NO GROWTH 5 DAYS Bacteriology Remark(s): THIS REPORT IS FINAL =--=--=--=--=--=--=--=--=--= --=--=--=--=--=--=--=--=--=- -=--=--=--=--=--=--=-- Performing Laboratory: Bacteriology Report Performed By: [facility] [CLIA# [id number]] [place] [address] [facility] Jul 16, 2024 01:54 PM LR MICROBIOLOGY RE PORT: Reporting Lab: [facility] [CLIA# [id number]] [place] [address] Accession [UID]: [id number] [[id number]] Received: Jul 16, 2024@14:41 Collection sample: BLOOD Collection date: Jul 16, 2024 13:54 Provider: LEISA GOLDEN Comment on specimen: L AC, RECEIVED 2 BLOOD CULTURE BOTTLES Test(s) ordered: CULTURE & SUSCEPTIBILITY...... completed: Jul 22, 2024 * BACTERIOLOGY FINAL REPORT => Jul 22, 2024 13:39 TECH CODE: [id number] CULTURE RESULTS: NO GROWTH 5 DAYS Bacteriology Remark(s): THIS REPORT IS FINAL =--=--=--=--=--=--=--=--=--= --=--=--=--=--=--=--=--=--=- -=--=--=--=--=--=--=-- Performing Laboratory: Bacteriology Report Performed By: [facility] [CLIA# [id number]] [place] [address] [facility] Jul 03, 2024 05:59 AM LR SURGICAL PATHOL OGY REPORT: LOCAL TITLE: LR SURGICAL PATHOLOGY REPORT STANDARD TITLE: PATHOLOGY REPORT DATE OF NOTE: JUL 06, 2024@10:40:48 ENTRY DATE: JUL 06, 2024@10:40:48 AUTHOR: EDUARDO PALOMARES EXP COSIGNER: URGENCY: STATUS: COMPLETED $APHDR Reporting Lab: [facility] [CLIA# [id number]] [place] [address] - - - - - - - [...] - - - PATHOLOGY REPORT Accession No. [id number] - - - - - - - [...] - PATHOLOGY REPORT Accession No. [id number] - - - - - - - [...] Second circumferential surgical margin, en face; E-F: Web Press Roll Tender diverticula; G: Web Press Roll Tender section of mesentery; H: Random exhibit display representative section of additional adipose tissue fragment. [...] One colonic tissue ring, bisected transversely. [facility] Microscopic examination performed. DIAGNOSIS: 1. Colon, sigmoid, sigmoidectomy-- - Diverticulosis with perforation and focal abscess formation 2. 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............. completed: Jun 22, 2024 15:03 CULTURE & SUSCEPTIBILITY...... completed: Jun 25, 2024 * BACTERIOLOGY FINAL REPORT => Jun 25, 2024 10:56 TECH CODE: [id number] GRAM STAIN: DIRECT SMEAR of specimen before [...] -=--=--=--=--=--=--=-- Performing Laboratory: Bacteriology Report Performed By: [facility] [CLIA# [id number]] [place] [address] [facility] Jun 22, 2024 01:15 PM LR MICROBIOLOGY RE PORT: Reporting Lab: [facility] [CLIA# [id number]] [place] [id number] Accession [UID]: [id number] [[id number]] Received: Jun 22, 2024@13:38 Collection sample: FLUID Collection date: Jun 22, 2024 13:15 Provider: ANGELA HOLDEN Comment on specimen: LLQ ABSCESS, RECEIVED IN ANAEROBIC TRANSPORT VIAL Test(s) ordered: ANAEROBIC CULTURE............. completed: Jun 28, 2024 * BACTERIOLOGY FINAL REPORT => Jun 28, 2024 10:08 TECH CODE: [id number] CULTURE RESULTS: HEAVY GROWTH MIXED ANAEROBES Comment: including the followin+ Bacteroides fragilis 4+ Bacteroides vulgatus 4+ Clostridium innocuum Beta-lactamase negative 4+ Bacteroides caccae 4+ Parvimonas micra 4+ Bacteroides uniformis 4+ Gemella morbillorum 4+ anaerobic small, Gram Positive Rods 4+ Bacteroides thetaiotaomicron Standard workup is now complete. Bacteriology Remark(s): THIS REPORT IS FINAL =--=--=--=--=--=--=--=--=--= --=--=--=--=--=--=--=--=--=- -=--=--=--=--=--=--=-- Performing Laboratory: Bacteriology Report Performed By: [facility] [CLIA# [id number]] [place] [address] [facility] Jun 21, 2024 06:12 PM LR MICROBIOLOGY RE PORT: Reporting Lab: [facility] [IA# [id number]] [place] [address] Accession [UID]: [id number] [[id number]] Received: Jun 21, 2024@18:12 Collection sample: BLOOD [...] -=--=--=--=--=--=--=-- Performing Laboratory: Bacteriology Report Performed By: [facility] [CLIA# [id number]] [place] [address] [facility] Jun 21, 2024 06:11 PM LR MICROBIOLOGY RE PORT: Reporting Lab: [facility] [CLIA# [id number]] [place] [address] Accession [UID]: [id number] [[id number]] Received: Jun 21, 2024@18:11 Collection sample: BLOOD [...] -=--=--=--=--=--=--=-- Performing Laboratory: Bacteriology Report Performed By: [facility] [CLIA# [id number]] [place] [address] [facility]
[2024-08-01 07:55] LABS: Creatinine* 0.8 mg/dL (0.5-1.5); Est. Creatinine Clearance* 71.12; Estimated Glomerular Filt Rate 94 ml/min
--- OUTSIDE RECORDS SUMMARY | 2024-08-01 07:55 | XMS_ITS | Encounter Summary ---
Author Name [facility] [facility] [place] Address [address] [place] [address] Care Team Providers Care Aerial Crop Duster Name Role Phone JATINDER CABRERA Primary Care [...] PART A Sep 29, 2016 PART A [id number] [phone] JUDY WEAVER PATIENT Selected Encounter This section includes the information on record at [place] for the Encounter. Date/Time Encounter Type Encounter Description Reason Pro vider Source Jul 16, 2024 07:32 PM Inpatient Visit CLINICAL PHARMACY [facility] Encounter [...] TYPE & SCREEN - LAB BLOOD WC [facility] Jul 03, 2024 12:00 AM Laboratory - Blood Bank Order TYPE & SCREEN - LAB BLOOD WC [facility] Jul 16, 2024 12:00 AM Laboratory [...] Range Comment Jul 21, 2024 10:38 AM [facility] BASIC METABOLIC PANEL+MG Specimen Type: PLASMA No comment entered. Ordering Provider: SARAI GOLDEN Report Released Date/Time: Jul 20, 2024 06:50 PM Reporting Lab: [facility] [address] Performing Lab: [facility] [address] CREATININE 0.8 mg/dL 0.7-1.2 UREA NITROGEN 31 mg/dL H 8-26 GLUCOSE 120 mg/dL H 70-100 SODIUM 125 mmol/L L 136-145 POTASSIUM 4.4 mmol/L 3.5-5.1 CHLORIDE 100 mmol/L 98-107 CO2 17 mmol/L L 22-29 CALCIUM 9.6 mg/dL 8.4-10.2 MAGNESIUM 1.9 mg/dL 1.6-2.6 ANION GAP 8 mmol/L 5-15 .CREAT EGFR(CKD-EPI) >90 >60 Jul 21, 2024 10:38 AM [facility] CBC Specimen Type: BLOOD No comment entered. Ordering Provider: SARAI GOLDEN Report Released Date/Time: Jul 20, 2024 06:50 PM Reporting Lab: [facility] [address] Performing Lab: [facility] [address] WBC 16.0 H 4.0-11.0 RBC 5.16 4.60-6.20 HGB 15.8 g/dL 13.5-17.9 HCT 45.5 41.0-54.0 MCV 88.2 fL 80.0-100.0 MCH 30.6 pg 27.0-33.0 MCHC 34.7 g/dL 32.0-37.5 PLT 428 H 150-400 MPV 10.8 fL 9.1-13.0 RDW 13.6 11.5-14.5 Jul 20, 2024 01:00 PM [facility] SODIUM,URINE RANDOM Specimen Type: URINE No comment entered. Ordering Provider: SARAI GOLDEN Report Released Date/Time: Jul 20, 2024 08:22 AM Reporting Lab: [facility] [address] Performing Lab: [facility] [address] SODIUM,URINE RANDOM <20 mmol/L Jul 20, 2024 01:00 PM [facility] OSMOLALITY,URINE Specimen Type: URINE No comment entered. Ordering Provider: SARAI GOLDEN Report Released Date/Time: Jul 20, 2024 08:22 AM Reporting Lab: [facility] [address] Performing Lab: [facility] [address] OSMOLALITY,URIN E 648 mosm/kg 500-800 Jul 20, 2024 06:45 AM [facility] BASIC METABOLIC PANEL+MG Specimen Type: PLASMA No comment entered. Ordering Provider: SARAI GOLDEN Report Released Date/Time: Jul 19, 2024 06:13 PM Reporting Lab: [facility] [address] Performing Lab: [facility] [address] CREATININE 0.8 mg/dL 0.7-1.2 UREA NITROGEN 36 mg/dL H 8-26 GLUCOSE 111 mg/dL H 70-100 SODIUM 121 mmol/L L 136-145 POTASSIUM 4.1 mmol/L 3.5-5.1 CHLORIDE 99 mmol/L 98-107 CO2 14 mmol/L L 22-29 CALCIUM 9.5 mg/dL 8.4-10.2 MAGNESIUM 1.8 mg/dL 1.6-2.6 ANION GAP 8 mmol/L 5-15 .CREAT EGFR(CKD-EPI) >90 >60 Jul 20, 2024 06:43 AM [facility] CBC & DIFF Specimen Type: BLOOD Comment: Automated Differential Performed Ordering Provider: SARAI GOLDEN Report Released Date/Time: Jul 19, 2024 06:13 PM Reporting Lab: [facility] [address] Performing Lab: [facility] [address] WBC 16.6 H 4.0-11.0 RBC 4.96 4.60-6.20 [...] H 0.0-0.1 Jul 20, 2024 05:30 AM [facility] OSMOLALITY,SERUM Specimen Type: SERUM No comment entered. Ordering Provider: SARAI GOLDEN Report Released Date/Time: Jul 20, 2024 09:47 AM Reporting Lab: [facility] [address] Performing Lab: [facility] [address] OSMOLALITY,SERU M 266 mosm/kg L 276-305 Jul 19, 2024 08:57 AM [facility] BASIC METABOLIC PANEL+MG Specimen Type: PLASMA No comment entered. Ordering Provider: SARAI GOLDEN Report Released Date/Time: Jul 18, 2024 10:24 PM Reporting Lab: [facility] [address] Performing Lab: [facility] [address] CREATININE 1.0 mg/dL 0.7-1.2 UREA NITROGEN 40 mg/dL H 8-26 GLUCOSE 104 mg/dL H 70-100 SODIUM 129 mmol/L L 136-145 POTASSIUM 3.3 mmol/L L 3.5-5.1 CHLORIDE 104 mmol/L 98-107 CO2 16 mmol/L L 22-29 CALCIUM 8.0 mg/dL L 8.4-10.2 MAGNESIUM 1.7 mg/dL 1.6-2.6 ANION GAP 9 mmol/L 5-15 .CREAT EGFR(CKD-EPI) 80 >60 Jul 19, 2024 08:57 AM [facility] CBC Specimen Type: BLOOD No comment entered. Ordering Provider: SARAI GOLDEN Report Released Date/Time: Jul 18, 2024 10:24 PM Reporting Lab: [facility] [address] Performing Lab: [facility] [address] WBC 17.3 H 4.0-11.0 RBC 4.83 4.60-6.20 HGB 14.8 g/dL 13.5-17.9 HCT 42.6 41.0-54.0 MCV 88.2 fL 80.0-100.0 MCH 30.6 pg 27.0-33.0 MCHC 34.7 g/dL 32.0-37.5 PLT 456 H 150-400 MPV 10.8 fL 9.1-13.0 RDW 13.7 11.5-14.5 Jul 17, 2024 06:55 PM [facility] PHOSPHORUS Specimen Type: PLASMA No comment entered. Ordering Provider: SARAI GOLDEN Report Released Date/Time: Jul 17, 2024 01:54 PM Reporting Lab: [facility] [address] Performing Lab: [facility] [address] PHOSPHORUS 2.9 mg/dL 2.3-4.3 Jul 17, 2024 06:55 PM [facility] BASIC METABOLIC PANEL+MG Specimen Type: PLASMA No comment entered. Ordering Provider: SARAI GOLDEN Report Released Date/Time: Jul 17, 2024 01:54 PM Reporting Lab: [facility] [address] Performing Lab: [facility] [address] CREATININE 1.2 mg/dL 0.7-1.2 UREA NITROGEN 62 mg/dL H 8-26 GLUCOSE 116 mg/dL H 70-100 SODIUM 128 mmol/L L 136-145 POTASSIUM 3.8 mmol/L 3.5-5.1 CHLORIDE 100 mmol/L 98-107 CO2 16 mmol/L L 22-29 CALCIUM 9.3 mg/dL 8.4-10.2 MAGNESIUM 2.1 mg/dL 1.6-2.6 ANION GAP 12 mmol/L 5-15 .CREAT EGFR(CKD-EPI) 64 >60 Jul 17, 2024 07:00 AM [facility] CBC & DIFF Specimen Type: BLOOD Comment: Manual Differential Performed Ordering Provider: SARAI GOLDEN Report Released Date/Time: Jul 16, 2024 04:52 PM Reporting Lab: [facility] [address] Performing Lab: [facility] [address] WBC 18.9 H 4.0-11.0 RBC 5.55 4.60-6.20 [...] MORPHOLOGY PRESENT Jul 17, 2024 07:00 AM [facility] ALBUMIN Specimen Type: PLASMA No comment entered. Ordering Provider: SARAI GOLDEN Report Released Date/Time: Jul 16, 2024 12:12 PM Reporting Lab: [facility] [address] Performing Lab: [facility] [address] ALBUMIN 4.3 g/dL 3.5-5.0 Jul 17, 2024 07:00 AM [facility] COMPREHENSIVE METABOLIC PANEL+MG Specimen Type: PLASMA No comment entered. Ordering Provider: SARAI GOLDEN Report Released Date/Time: Jul 16, 2024 04:52 PM Reporting Lab: [facility] [address] Performing Lab: [facility] [address] CREATININE 1.3 mg/dL H 0.7-1.2 UREA NITROGEN [...] L >60 Jul 16, 2024 07:10 PM [facility] LACTIC ACID Specimen Type: PLASMA No comment entered. Ordering Provider: SARAI GOLDEN Report Released Date/Time: Jul 16, 2024 12:12 PM Reporting Lab: [facility] [address] Performing Lab: [facility] [address] LACTIC ACID 0.9 mmol/L 0.5-2.2 Jul 16, 2024 02:14 PM [facility] MRSA SURVL NARES DNA Specimen Type: NARES No comment entered. Ordering Provider: SARAI GOLDEN Report Released Date/Time: Jul 16, 2024 12:12 PM Reporting Lab: [facility] [address] Performing Lab: [facility] [address] MRSA SURVL NARES DNA NEGATIVE Negative Jul 16, 2024 02:10 PM [facility] LACTIC ACID Specimen Type: PLASMA No comment entered. Ordering Provider: SARAI GOLDEN Report Released Date/Time: Jul 16, 2024 12:12 PM Reporting Lab: [facility] [address] Performing Lab: [facility] [address] LACTIC ACID 0.9 mmol/L 0.5-2.2 Jul 16, 2024 02:08 PM [facility] COMPREHENSIVE METABOLIC PANEL+MG Specimen Type: PLASMA No comment entered. Ordering Provider: SARAI GOLDEN Report Released Date/Time: Jul 16, 2024 12:12 PM Reporting Lab: [facility] [address] Performing Lab: [facility] [address] CREATININE 2.0 mg/dL H 0.7-1.2 UREA NITROGEN [...] L >60 Jul 16, 2024 02:08 PM [facility] CBC & DIFF Specimen Type: BLOOD Comment: Manual Differential Performed Ordering Provider: SARAI GOLDEN Report Released Date/Time: Jul 16, 2024 12:12 PM Reporting Lab: [facility] [address] Performing Lab: [facility] [address] WBC 19.7 H 4.0-11.0 RBC 5.39 4.60-6.20 [...] MORPHOLOGY PRESENT Jul 10, 2024 07:16 AM [facility] PHOSPHORUS Specimen Type: PLASMA No comment entered. Ordering Provider: JUANCARLOS ECHOLS Report Released Date/Time: Jul 09, 2024 12:23 PM Reporting Lab: [facility] [address] Performing Lab: [facility] [address] PHOSPHORUS 3.0 mg/dL 2.3-4.3 Jul 10, 2024 07:16 AM [facility] BASIC METABOLIC PANEL+MG Specimen Type: PLASMA No comment entered. Ordering Provider: JUANCARLOS ECHOLS S Report Released Date/Time: Jul 09, 2024 12:23 PM Reporting Lab: [facility] [address] Performing Lab: [facility] [address] CREATININE 0.7 mg/dL 0.7-1.2 UREA NITROGEN 27 [...] PM Reporting Lab: [facility] [address] Performing Lab: [facility] [address] WBC 18.8 H 4.0-11.0 RBC 5.08 4.60-6.20 [...] PM Reporting Lab: [facility] [address] Performing Lab: [facility] [address] WBC 15.3 H 4.0-11.0 RBC 4.91 4.60-6.20 [...] AM Reporting Lab: [facility] [address] Performing Lab: [facility] [address] URINE COLOR YELLOW SPECIFIC GRAVITY >1.050 H [...] PM Reporting Lab: [facility] [address] Performing Lab: [facility] [address] WBC 17.5 H 4.0-11.0 RBC 4.88 4.60-6.20 [...] PM Reporting Lab: [facility] [address] Performing Lab: [facility] [address] PHOSPHORUS 2.6 mg/dL 2.3-4.3 Jul 08, 2024 09:54 AM [facility] BASIC METABOLIC PANEL+MG Specimen Type: PLASMA Comment: Specimen received in Lab at: [id number] Ordering Provider: JUANCARLOS ECHOLS Report Released Date/Time: Jul 07, 2024 04:49 PM Reporting Lab: [facility] [address] Performing Lab: [facility] [address] CREATININE 0.9 mg/dL 0.7-1.2 UREA NITROGEN 26 [...] PM Reporting Lab: [facility] [address] Performing Lab: [facility] [address] C DIFF TOX B GENE PCR NEGATIVE Negative Jul 07, 2024 07:41 AM [facility] PHOSPHORUS Specimen Type: PLASMA No comment entered. Ordering Provider: JEVON ZAZUETA Report Released Date/Time: Jul 06, 2024 03:44 PM Reporting Lab: [facility] [address] Performing Lab: [facility] [address] PHOSPHORUS 3.1 mg/dL 2.3-4.3 Jul 07, 2024 07:41 AM [facility] BASIC METABOLIC PANEL+MG Specimen Type: PLASMA No comment entered. Ordering Provider: JEVON ZAZUETA Report Released Date/Time: Jul 06, 2024 03:44 PM Reporting Lab: [facility] [address] Performing Lab: [facility] [address] CREATININE 0.9 mg/dL 0.7-1.2 UREA NITROGEN 20 [...] PM Reporting Lab: [facility] [address] Performing Lab: [facility] [address] WBC 21.2 H 4.0-11.0 RBC 5.09 4.60-6.20 [...] PM Reporting Lab: [facility] [address] Performing Lab: [facility] [address] WBC 18.0 H 4.0-11.0 RBC 4.83 4.60-6.20 [...] PM Reporting Lab: [facility] [address] Performing Lab: [facility] [address] PHOSPHORUS 3.6 mg/dL 2.3-4.3 Jul 06, 2024 07:21 AM [facility] BASIC METABOLIC PANEL+MG Specimen Type: PLASMA No comment entered. Ordering Provider: JEVON ZAZUETA Report Released Date/Time: Jul 05, 2024 01:22 PM Reporting Lab: [facility] [address] Performing Lab: [facility] [address] CREATININE 0.7 mg/dL 0.7-1.2 UREA NITROGEN 12 [...] AM Reporting Lab: [facility] [address] Performing Lab: [facility] [address] MAGNESIUM 2.0 mg/dL 1.6-2.6 Jul 05, 2024 07:17 AM [facility] PHOSPHORUS Specimen Type: PLASMA No comment entered. Ordering Provider: JUANCARLOS ECHOLS S Report Released Date/Time: Jul 04, 2024 09:39 AM Reporting Lab: [facility] [address] Performing Lab: [facility] [address] PHOSPHORUS 2.0 mg/dL L 2.3-4.3 Jul 05, 2024 07:17 AM [facility] BASIC METABOLIC PANEL+MG Specimen Type: PLASMA No comment entered. Ordering Provider: JUANCRALOS ECHOLS S Report Released Date/Time: Jul 04, 2024 09:39 AM Reporting Lab: [facility] [address] Performing Lab: [facility] [address] CREATININE 0.7 mg/dL 0.7-1.2 UREA NITROGEN 12 [...] AM Reporting Lab: [facility] [address] Performing Lab: [facility] [address] WBC 18.3 H 4.0-11.0 RBC 4.49 L [...] PM Reporting Lab: [facility] [address] Performing Lab: [facility] [address] CREATININE 0.7 mg/dL 0.7-1.2 UREA NITROGEN 16 [...] PM Reporting Lab: [facility] [address] Performing Lab: [facility] [address] PHOSPHORUS 2.8 mg/dL 2.3-4.3 Jul 04, 2024 07:16 AM [facility] CBC Specimen Type: BLOOD No comment entered. Ordering Provider: GABINO CAMERON Report Released Date/Time: Jul 03, 2024 06:31 PM Reporting Lab: [facility] [address] Performing Lab: [facility] [address] WBC 20.6 H 4.0-11.0 RBC 4.63 4.60-6.20 [...] PM Reporting Lab: [facility] [address] Performing Lab: [facility] [address] WBC 20.6 H 4.0-11.0 RBC 4.63 4.60-6.20 [...] PM Reporting Lab: [facility] [address] Performing Lab: [facility] [address] BNP 292 pg/mL H <99 Jul 03, 2024 10:32 PM [facility] FINGERSTICK GLUCOSE Specimen Type: BLOOD Comment: Save Result Nurse Notified Ordering Provider: KATELYNN PERSON Report Released Date/Time: Jul 03, 2024 10:50 PM Reporting Lab: [facility] [address] Performing Lab: [facility] [address] FINGERSTICK GLUCOSE 126 mg/dL H 70-100 Jul 03, 2024 05:33 PM [facility] FINGERSTICK GLUCOSE Specimen Type: BLOOD Comment: Save Result Nurse Notified Ordering Provider: KATELYNN PERSON Report Released Date/Time: Jul 03, 2024 05:46 PM Reporting Lab: [facility] [address] Performing Lab: [facility] [address] FINGERSTICK GLUCOSE 141 mg/dL H 70-100 Jul 03, 2024 02:31 PM [facility] POC ABG/ELECTROLYTES Specimen Type: ARTERIAL BLOOD Comment: FIO2 = 97% Patient Temp: 36.0 C Sample Type = ARTERIAL Ordering Provider: MAZIN ARREDONDO Report Released Date/Time: Jul 03, 2024 01:48 PM Reporting Lab: [facility] [address] Performing Lab: [facility] [address] POC PH 7.387 7.35-7.45 POC PCO2 34.4 [...] PM Reporting Lab: [facility] [address] Performing Lab: [facility] [address] POC PH 7.280 L 7.35-7.45 POC PCO2 [...] PM Reporting Lab: [facility] [address] Performing Lab: [facility] [address] URINE COLOR YELLOW SPECIFIC GRAVITY 1.031 1.003-1.03 [...] PM Reporting Lab: [facility] [address] Performing Lab: [facility] [address] WBC 15.8 H 4.0-11.0 RBC 5.11 4.60-6.20 [...] PM Reporting Lab: [facility] [address] Performing Lab: [facility] [address] CREATININE 0.8 mg/dL 0.7-1.2 UREA NITROGEN 13 [...] PM Reporting Lab: [facility] [address] Performing Lab: [facility] [address] WBC 15.5 H 4.0-11.0 RBC 4.93 4.60-6.20 [...] PM Reporting Lab: [facility] [address] Performing Lab: [facility] [address] CREATININE 0.7 mg/dL 0.7-1.2 UREA NITROGEN 16 [...] PM Reporting Lab: [facility] [address] Performing Lab: [facility] [address] WBC 14.9 H 4.0-11.0 RBC 5.09 4.60-6.20 [...] PM Reporting Lab: [facility] [address] Performing Lab: [facility] [address] WBC 16.9 H 4.0-11.0 RBC 5.28 4.60-6.20 [...] PM Reporting Lab: [facility] [address] Performing Lab: [facility] [address] CREATININE 0.7 mg/dL 0.7-1.2 UREA NITROGEN 17 [...] PM Reporting Lab: [facility] [address] Performing Lab: [facility] [address] URINE COLOR YELLOW SPECIFIC GRAVITY 1.041 H [...] PM Reporting Lab: [facility] [address] Performing Lab: [facility] [address] POC CREATININE 1.1 mg/dL 0.6-1.3 Jun 21, 2024 05:30 PM [facility] POC ABG/LACTATE Specimen Type: VENOUS BLOOD No comment entered. Ordering Provider: DELIA MARTINEZ Report Released Date/Time: Jun 21, 2024 06:07 PM Reporting Lab: [facility] [address] Performing Lab: [facility] [address] POC PH 7.470 H 7.31-7.41 POC PCO2 [...] PM Reporting Lab: [facility] [address] Performing Lab: [facility] [address] .INR 1.2 H 0.8-1.1 .PT 13.9 s H 9.4-12.5 Jun 21, 2024 05:24 PM [facility] LIPASE Specimen Type: PLASMA No comment entered. Ordering Provider: DELIA MARTINEZ Report Released Date/Time: Jun 21, 2024 05:30 PM Reporting Lab: [facility] [address] Performing Lab: [facility] [address] LIPASE 32 U/L <60 Jun 21, 2024 05:24 PM [facility] EXTRA GOLD GEL TUBE Specimen Type: SERUM No comment entered. Ordering Provider: DELIA MARTINEZ Report Released Date/Time: Jun 21, 2024 05:41 PM Reporting Lab: [facility] [address] Performing Lab: [facility] [address] EXTRA GOLD GEL TUBE RECEIVED Jun 21, 2024 05:24 PM [facility] COMPREHENSIVE METABOLIC PANEL+MG Specimen Type: PLASMA No comment entered. Ordering Provider: DELIA MARTINEZ Report Released Date/Time: Jun 21, 2024 05:30 PM Reporting Lab: [facility] [address] Performing Lab: [facility] [address] CREATININE 0.9 mg/dL 0.7-1.2 UREA NITROGEN 29 [...] PM Reporting Lab: [facility] [address] Performing Lab: [facility] [address] WBC 21.3 H 4.0-11.0 RBC 5.48 4.60-6.20 [...] 16, 2024 12:17 PM 0 [facility] Social History: Smoking Status (Most current) and Tobacco Use (All prior to encounter date) This section includes the most current, and the historical, smoking and tobacco- related health factors from the [facility] where the Encounter took place. Current [...] 06:15 PM CHEST 1 VIEW: FLACA WEAVER [id number] -1950 M Exm Date: JUL 18, 2024@18:15 Req Phys: LEISA GOLDEN Loc: /07-18-2024@19:00 Img Loc: MAIN X-RAY Service: [place] [address] (Case [id number] COMPLETE) CHEST 1 VIEW (RAD Detailed) CPT:59012 Proc Modifiers : PORTABLE EXAM Reason for Study: SOB Clinical History: IS NOT under investigation for COVID-19 or is COVID-19 negative 73 yo with SOB Responsible provider name and phone number to notify for critical findings if other than user placing the order and pager listed below: User placing orders pager: [phone] LAST CREATININE 1.2 (07/17/24) Report Status: Verified Date Reported: JUL 18, 2024 Date Verified: JUL 18, 2024 [facility] E-Sig:/ES/CARLOS A CUNNINGHAM DO Report: EXAMINATION: CHEST 1 VIEW Reason for Study: SOB IS NOT under investigation for COVID-19 or is COVID-19 negative 73 yo with SOB Responsible provider name and phone number to notify for critical findings if other than user placing the order and pager listed below: User placing orders pager: [phone] LAST CREATININE 1.2 (07/17/24) SOB TECHNIQUE: Single [...] Interpreting Staff: CARLOS A CUNNINGHAM DO, RADIOLOGIST ([facility] Winder) /CARLOS A ROWELL [facility] Jul 16, 2024 07:[address] [facility] [address] ABDOMEN/PELVIS: FLACA WEAVER [id number] -1950 M Exm Date: JUL 16, 2024@07:49 Req Phys: JATINDER CABRERA Loc: 07-17-2024@09:02 Img Loc: OUTSOURCE CT Service: Unknown (Case [id number] COMPLETE) NON [facility] [facility] ABDOMEN/PELVIS (CT Detailed) CPT:79425 Reason for Study: outside study Clinical History: [...] VERIFIED BY: / *ELECTRONICALLY FILED* [facility] Jul 13, 2024 09:[address] ABDOMEN/PELVIS: FLACA WEAVER [id number] -1950 M Exm Date: JUL 13, 2024@09:41 Req Phys: JATINDER CABRERA Loc: 07-17-2024@09:08 Img Loc: OUTSOURCE CT Service: Unknown (Case [id number] COMPLETE) NON [facility] [facility] ABDOMEN/PELVIS (CT Detailed) CPT:98760 Reason for Study: outside study Clinical History: [...] VERIFIED BY: / *ELECTRONICALLY FILED* [facility] Jul 08, 2024 10:09 AM CHEST 2 VIEWS PA AND LAT: FLACA WEAVER [id number] -1950 M Exm Date: JUL 08, 2024@10:09 Req Phys: KATELYNN PERSON Pat Loc: [facility]/07-08-2024@11:49 Img Loc: MAIN X-RAY Service: [place] [address] (Case 24 COMPLETE) CHEST 2 VIEWS PA AND LAT (RAD Detailed) CPT:29251 Reason for Study: Uptrending WBC, POD 5 Clinical History: [place] IS NOT under investigation for COVID-19 or is COVID-19 negative POD 5, work up for uptrending wbc Responsible provider name and phone number to notify for critical findings if other than user placing the order and pager listed below: User placing orders pager: Katelynn Person LAST CREATININE 0.9 (07/07/24) Report Status: Verified Date Reported: JUL 08, 2024 Date Verified: JUL 08, 2024 Ball Winder E-Sig: Report: CHEST 2 VIEWS PA AND [...] cardiopulmonary disease. READING PHYSICIAN: Sarbjit Vaughn M.D. -[phone] 07/08/2024 12:46 EST [facility] National Teleradiology Program [phone] (For Medical Practitioner Use Only) Attention Patients / Veterans: If you have questions or concerns about these test results, please contact your ordering provider or primary care team. Primary Interpreting Staff: RADIOLOGY,OUTSIDE SERVICE, Staff Physician / RADIOLOGY,OUTSIDE SERVICE [facility] Jul 08, 2024 10:[address] (AP) ABDOMEN/PELVIS W CONTRAST: FLACA WEAVER [id number] -1950 M Exm Date: JUL 08, 2024@10:00 Req Phys: KATELYNN PERSON Loc: 2KG/07-08-2024@12:07 Img Loc: CT IMAGING Service: [place] [address] (Case 22 COMPLETE) CT (AP) ABDOMEN/PELVIS W CONTRAST(CT Detailed) CPT:50150 Contrast Media : Non-ionic Iodinated Reason for [...] PLASMA .CREAT EGFR(CKD-E >90 Ref: >=60 Allergies: ([place] only) TERAZOSIN (Mar 13, 2015) Report Status: Verified Date Reported: JUL 08, 2024 Date Verified: JUL 08, 2024 Ball Winder E-Sig: Report: CT (AP) ABDOMEN/PELVIS W CONTRAST [...] as noted above READING PHYSICIAN: Celestino Blanc -[phone] 07/08/2024 13:04 EST [facility] National Teleradiology [facility] [phone] (For Medical Practitioner Use Only) Attention Patients / Veterans: If you have questions or concerns about these test results, please contact your ordering provider or primary care team. Primary Interpreting Staff: RADIOLOGY,OUTSIDE SERVICE, Staff Physician / RADIOLOGY,OUTSIDE SERVICE [facility] Jun 22, 2024 11:49 AM ABSCESS DRAIN PLACEMENT PERITONEAL (P): FLACA WEAVER [id number] -1950 M Exm Date: JUN 22, 2024@11:49 Req Phys: ANGELA HOLDEN Loc: [facility]/06-22-2024@17:14 Img Loc: INTERVENTIONAL RADIOLOGY Service: [place] [address] (Case [id number] COMPLETE) IR PERITONEAL/RETROPERITONEAL PER(ANI Detailed) CPT:57542 Reason for Study: diverticulitis with abscess (Case 3570 COMPLETE) IR MOD SEDATION 10-22 MIN (ANI Detailed) CPT:96810 Clinical History: [place] IS NOT under investigation for COVID-19 or is COVID-19 negative 73 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 please place abscess drain. Contact number for responsible provider who can be reached for any questions or notifications of critical findings: [phone] n/a LAST CREATININE 0.9 (06/21/24) Report Status: Verified Date Reported: JUN 22, 2024 Date Verified: JUN 22, 2024 Ball Winder E-Sig:/ES/LISA PENDLETON MD Report: PROCEDURES: Placement of [...] CT fluoroscopy, a 5 [place] Amimon centesis catheter was advanced into the collection in the left pelvis. A wire was coiled in the collection. The tract into the collection was dilated to accommodate the 12 [place] locking pigtail drainage catheter. There was [...] Primary Interpreting Staff: LISA PENDLETON MD, RADIOLOGIST ([place]) /JRT LISA PENDLETON [facility] Jun 22, 2024 11:[address] NEEDLE PLACEMENT (P): MEGFLACA LOBO [id number] -1950 M Exm Date: JUN 22, 2024@11:48 Req Phys: ANGELA HOLDEN [facility] Loc: [facility]/06-22-2024@17:14 Img Loc: CT IMAGING Service: [place] [address] (Case [id number] COMPLETE) CT SCAN FOR NEEDLE PLACEMENT (CT Detailed) CPT:03255 Reason for Study: l pelvic abscess drain Clinical History: Report Status: Verified Date Reported: JUN 22, 2024 Date Verified: JUN 22, 2024 [place] E-Sig:/ES/LISA PENDLETON MD Report: PROCEDURES: Placement of [...] CT fluoroscopy, a 5 [place] [employer] catheter was advanced into the collection in the left pelvis. A wire was coiled in the collection. The tract into the collection was dilated to accommodate the 12 [place] locking pigtail drainage catheter. There was [...] Primary Interpreting Staff: LISA PENDLETON MD, RADIOLOGIST ([place]) /JRT LISA PENDLETON [facility] Jun 21, 2024 06:[address] (AP) ABDOMEN/PELVIS (P): FLACA WEAVER [id number] -1950 M Exm Date: JUN 21, 2024@18:09 Req Phys: DELIA MARTINEZ Loc: [facility] EMERGENCY DEPT WALK-IN (Re Img Loc: CT IMAGING Service: [place] [address] (Case [id number] COMPLETE) CT (AP) ABDOMEN/PELVIS W CONTRAST(CT Detailed) CPT:32120 Contrast Media : Non-ionic Iodinated Reason for [...] PLASMA .CREAT EGFR(CKD-E >90 Ref: >=60 Allergies: ([facility]) TERAZOSIN (Mar 13, 2015) Defer [...] 21, 2024 Date Verified: JUN 21, 2024 [place] E-Sig:/ALEXI/CARLOS A CUNNINGHAM DO Report: EXAMINATION: CT [...] Interpreting Staff: CARLOS A CUNNINGHAM DO, RADIOLOGIST ([place]) /CARLOS A ROWELL [facility] Pathology Reports: +/- 30 days [...] RE PORT: Reporting Lab: [facility] [CLIA# [id number]] [place] [address] Accession [UID]: [id number] [[id number]] Received: Jul 16, 2024@14:41 Collection sample: BLOOD Collection date: Jul 16, 2024 14:07 Provider: LEISA GOLDEN Comment on specimen: R AC, RECEIVED 2 BLOOD CULTURE BOTTLES Test(s) ordered: CULTURE & SUSCEPTIBILITY...... completed: Jul 22, 2024 * BACTERIOLOGY FINAL REPORT => Jul 22, 2024 13:39 TECH CODE: [id number] CULTURE RESULTS: NO GROWTH 5 DAYS Bacteriology Remark(s): THIS REPORT IS FINAL =--=--=--=--=--=--=--=--=--= --=--=--=--=--=--=--=--=--=- -=--=--=--=--=--=--=-- Performing Laboratory: Bacteriology Report Performed By: [facility] [CLIA# [id number]] [place] [address] [facility] Jul 16, 2024 01:54 PM LR MICROBIOLOGY RE PORT: Reporting Lab: [facility] [CLIA# [id number]] [place] [address] Accession [UID]: [id number] [[id number]] Received: Jul 16, 2024@14:41 Collection sample: BLOOD Collection date: Jul 16, 2024 13:54 Provider: LEISA GOLDEN Comment on specimen: L AC, RECEIVED 2 BLOOD CULTURE BOTTLES Test(s) ordered: CULTURE & SUSCEPTIBILITY...... completed: Jul 22, 2024 * BACTERIOLOGY FINAL REPORT => Jul 22, 2024 13:39 TECH CODE: [id number] CULTURE RESULTS: NO GROWTH 5 DAYS Bacteriology Remark(s): THIS REPORT IS FINAL =--=--=--=--=--=--=--=--=--= --=--=--=--=--=--=--=--=--=- -=--=--=--=--=--=--=-- Performing Laboratory: Bacteriology Report Performed By: [facility] [CLIA# [id number]] [place] [address] [facility] Jul 03, 2024 05:59 AM LR SURGICAL PATHOL OGY REPORT: LOCAL TITLE: LR SURGICAL PATHOLOGY REPORT STANDARD TITLE: PATHOLOGY REPORT DATE OF NOTE: JUL 06, 2024@10:40:48 ENTRY DATE: JUL 06, 2024@10:40:48 AUTHOR: EDUARDO PALOMARES EXP COSIGNER: URGENCY: STATUS: COMPLETED $APHDR Reporting Lab: [facility] [CLIA# [id number]] [place] [address] - - - - - - - [...] - PATHOLOGY REPORT Accession No. [id number] - - - - - - - [...] - PATHOLOGY REPORT Accession No. [id number] - - - - - - - [...] Second circumferential surgical margin, en face; E-F: Cylinder Machine Operator Pulp Drier diverticula; G: Cylinder Machine Operator Pulp Drier section of mesentery; H: Random community service representative section of additional adipose tissue [...] Pathology Report Performed By: [facility] [CLIA# [id number]] [place] [address] $FTR - - - - - - - - - - - - - - - - - - - - - - - - - - - - - - - - - - - - - - - - (End of report) EDUARDO PALOMARES MD [facility] Date Jul 06, 2024 - - - - - - - - - - - - - - - - - - - - - - - - - - - - - - - - - - - - - - - - FLACA WEAVER STANDARD FORM 515 ID:[id number] SEX:M :1950 AGE: 73 LOC:63473 ADM:Jun DX:DIVERTICULITIS PCP: Jatinder Cabrera /alexi/ EDUARDO PALOMARES MD STAFF PATHOLOGIST Signed: 07/06/2024 10:40 EDUARDO PALOMARES [facility] Jun 22, 2024 01:15 PM LR MICROBIOLOGY RE PORT: Reporting Lab: [facility] [CLIA# [id number]] [place] [address] Accession [UID]: [id number] [[id number]] Received: Jun 22, 2024@13:38 Collection sample: FLUID Collection date: Jun 22, 2024 13:15 Provider: ANGELA HOLDEN Comment on specimen: LLQ ABSCESS, RECEIVED IN ANAEROBIC TRANSPORT VIAL Test(s) ordered: GRAM STAIN.................... completed: Jun 22, 2024 15:03 CULTURE & SUSCEPTIBILITY...... completed: Jun 25, 2024 * BACTERIOLOGY FINAL REPORT => Jun 25, 2024 10:56 TECH CODE: [id number] GRAM STAIN: DIRECT SMEAR of specimen before [...] Bacteriology Report Performed By: [facility] [CLIA# [id number]] [place] [address] [facility] Jun 22, 2024 01:15 PM LR MICROBIOLOGY RE PORT: Reporting Lab: [facility] [CLIA# [id number]] [place] [id number] Accession [UID]: [id number] [[id number]] Received: Jun 22, 2024@13:38 Collection sample: FLUID Collection date: Jun 22, 2024 13:15 Provider: ANGELA HOLDEN Comment on specimen: LLQ ABSCESS, RECEIVED IN ANAEROBIC TRANSPORT VIAL Test(s) ordered: ANAEROBIC CULTURE............. completed: Jun 28, 2024 * BACTERIOLOGY FINAL REPORT => Jun 28, 2024 10:08 TECH CODE: [id number] CULTURE RESULTS: HEAVY GROWTH MIXED ANAEROBES Comment: [...] Bacteriology Report Performed By: [facility] [CLIA# [id number]] [place] [address] [facility] Jun 21, 2024 06:12 PM LR MICROBIOLOGY RE PORT: Reporting Lab: [facility] [IA# [id number]] [place] [address] Accession [UID]: [id number] [[id number]] Received: Jun 21, 2024@18:12 Collection sample: BLOOD [...] Bacteriology Report Performed By: [facility] [CLIA# [id number]] [place] [address] [facility] Jun 21, 2024 06:11 PM LR MICROBIOLOGY RE PORT: Reporting Lab: [facility] [CLIA# [id number]] [place] [address] Accession [UID]: [id number] [[id number]] Received: Jun 21, 2024@18:11 Collection sample: BLOOD [...] Bacteriology Report Performed By: [facility] [CLIA# [id number]] [place] [address] [facility] Encounter Notes: All associated encounter notes This section contains the clinical notes associated to the Encounter. Date/Time Encounter Note(s) Provider Source Jul 16, 2024 07:32 PM PHARMACY MEDICATIO N MGT NOTE: LOCAL TITLE: DRUG RECONCILIATION ON ADMIT STANDARD TITLE: PHARMACY MEDICATION MGT NOTE DATE OF NOTE: JUL 16, 2024@19:32 ENTRY DATE: JUL 16, 2024@19:32:56 AUTHOR: SHERRY HOROWITZ EXP COSIGNER: URGENCY: STATUS: COMPLETED PHARMACY MEDICATION HISTORY NOTE = Medication & allergy history was compiled by [...] no relevant meds for the patient. See [facility] Emergency Department documentation for medications given during emergency department visit. Seasonal Influenza Immunization: INFLUENZA, HIGH-DOSE, TRIVALENT,* 05/15/2024 [place]* INTERVIEW Patient has been INTERVIEWED by pharmacy at bedside. Patient reports manages own medications, and gets all RX medications from [facility]. Patient was recently discharged from the [facility] on 07/10/24 (Please see discharge note for medication changes made). Patient is a poor historian, and brought in medication bottles with him and reports what he brought is all he takes at home. 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 Pt brought in 6 different medications, and reports only taking 5 out of the 6 (all seems to be old). When asked if he was discharged with any new medications last week, patient reported no and that he thought there was no medication changes made during his last hospital stay. Allergies: FACILITY ALLERGY/ADR -------- No Remote Allergy/ADR Data available for this patient [facility] TERAZOSIN pt reported NKDA. Patient reports last scheduled medication(s) were taken prior to admit: 07/15/24 AM. Tobacco use within the last 30 days: No 07/16/2024 17:15 FLACA WEAVER [id number] Source of Info: [facility] Drug Last Refills Qty Filled Remaining ---- --- ------ --------- ACETAMINOPHEN 500MG TAB 100 07/10/2024 (0) TWO TID PRN FOR PAIN not taking. ASPIRIN 81MG EC TAB 90 07/10/2024 (0) ONE QAM FOR HEART DISEASE not taking. ATROPINE 0.025/DIPHENOXYLATE 2.5MG TAB 56 07/10/2024 (0) 1 QID FOR DIARRHEA not taking. DOCUSATE NA 50MG/SENNOSIDES 8.6MG TAB 14 07/10/2024 (0) 1 QHS PRN FOR CONSTIPATION not taking. EMPAGLIFLOZIN 25MG TAB 45 05/11/2024 (2) ONE-HALF QDAY taking. FUROSEMIDE 20MG TAB 90 (3) ONE QDAY FOR EXCESS FLUID pt brought in a bottle with old sig of: TAKE ONE TABLET BY MOUTH EVERY DAY NEEDED FOR EXCESS FLUID TAKE ONE TABLET FOR WEIGHT GAIN OF 3 POUNDS OVERNIGHT OR MORE THAN 5 POUNDS IN 1 WEEK OR LEG SWELLING, and reports he is not taking because he was told by a provider that he's been dehydrated. ISOSORBIDE MONONITRATE 30MG SA TAB 90 07/10/2024 (1) ONE QDAY FOR CHEST PAIN taking. LISINOPRIL 10MG TAB 90 07/10/2024 (0) ONE QAM FOR BLOOD PRESSURE not taking. Pt seems to be taking old rx of HCTZ/lisinopril. NALOXONE HCL 4MG/SPRAY SOLN NASAL SPRA 2 07/10/2024 (1) SPRAY 1 DOSE IN ONE NOSTRIL DIRECTED FOR UNRESPONSIVENESS, THEN CALL 911. IF NO CHANGE IN 2-3 MINUTES, GIVE SECOND DOSE IN OPPOSITE RENEE RICHARDSON Cost/Fill: $ 0.01 not taking. NITROGLYCERIN 0.4MG SL TAB 100 07/12/2024 (1) DISSOLVE ONE UNDER THE TONGUE TID NEEDED FOR CHEST PAIN * MAY REPEAT EVERY 5 MINUTES--NO MORE THAN 3 TOTAL not taking. ONDANSETRON HCL 8MG TAB 90 07/10/2024 (0) ONE Q8H PRN FOR NAUSEA not taking. OXYCODONE 5MG TAB 12 07/10/2024 (0) ONE EVERY 4 HOURS PRN FOR PAIN not taking. PSYLLIUM ORAL PWD 1170 01/31/2024 (3) 2 TEASPOONSFUL QDAY FOR CONSTIPATION not taking. SPIRONOLACTONE 25MG TAB 45 06/11/2024 (2) ONE-HALF QDAY FOR BLOOD PRESSURE taking. The following prescriptions have ATORVASTATIN CALCIUM 40MG TAB 45 04/03/2024 (0) ONE-HALF QHS FOR CHOLESTEROL : 07/15/2024 taking AM. PHENAZOPYRIDINE HCL 100MG TAB 90 04/26/2024 (0) TWO TID PRN FOR BLADDER PAIN : 05/26/2024 not taking. Recently discontinued prescriptions: taking HCTZ 12.5/LISINOPRIL 10MG TAB Issue Date 05/07/2024 DC'd 07/10/24 SIG TAKE ONE HALF TABLET BY MOUTH EVERY DAY FOR BLOOD PRESSURE Recently discontinued prescriptions: not taking IBUPROFEN 600MG TAB Issue Date 06/25/2024 DC'd 07/10/24 SIG TAKE ONE TABLET BY MOUTH THREE TIMES A DAY NEEDED FOR PAIN AMOXICILLIN 875/CLAV K 125MG TAB Issue Date 06/25/2024 DC'd 07/07/24 SIG TAKE 1 TABLET BY MOUTH TWICE A DAY INFECTION NITROFURANTOIN MONO/MACRO 100MG SA CAP Issue Date 06/12/2024 DC'd 07/07/24 SIG TAKE ONE CAPSULE BY MOUTH TWICE A DAY FOR UTI Facility: [facility] NEOMYCIN SULFATE 500MG TAB Issue Date 05/28/2024 DC'd 07/07/24 SIG TAKE TWO TABLETS BY MOUTH THREE TIMES A DAY PREOP AT 1PM, 2PM AND 11PM ON THE DAY BEFORE COLORECTAL SURGERY (TAKE ALONG WITH METRONIDAZOLE) COLON ELECTROLYTE LAVAGE PWD FOR SOLN Issue Date 05/28/2024 DC'd 07/07/24 SIG TAKE 1 CONTAINER (4 LITERS) BY MOUTH ONCE PRE-OP FOR COLO-RECTAL SURGERY - INSTRUCTION SHEET MAILED FROM CLINIC METRONIDAZOLE 500MG TAB Issue Date 05/28/2024 DC'd 06/25/24 SIG TAKE ONE TABLET BY MOUTH THREE TIMES A DAY - TAKE AT 1PM, 2PM, AND 11PM THE DAY BEFORE PROCEDURE ALONG WITH NEOMYCIN No non-VA, pending, or clinic meds. Consider the following inpatient medications when reviewing list above to complete medication reconciliation: Active Inpatient Medications (including Supplies): Active Inpatient Medications Status 1) LACTATED RINGERS INJ,SOLN in LACTATED RINGERS 1000 ACTIVE ML 75 ml/hr@0 Instructions too long. See order details for full text. IV 2) PIPERACILLIN/TAZOBACTAM 4.5GM 100ML INJ in ACTIVE PIPERACIL/TAZOB 4.5GM PREMIX 100 ML INFUSE OVER 30 Minutes Pharmacy Confirmation #: [id number] IVPB Q6H 3) SALINE FLUSH INJ 10ML IV Q8H AFTER EACH USE, MINIMUM ACTIVE OF EVERY SHIFT. 4) VANCOMYCIN 1250MG/250ML PREMIX BAG INJ in VANCOMYCIN ACTIVE 1250MG PREMIX 250 ML DON'T USE IN INFUSE OVER 120 Minutes IV Q24H /alexi/ SHERRY HOROWITZ Pharmacist Signed: 07/16/2024 21:10 Receipt Acknowledged By: 07/16/2024 21:25 /es/ RAMIRO MILLER, PHARM.D PHARMACIST * AWAITING SIGNATURE * EUGENIO HAN LEE M [facility]
--- OUTSIDE RECORDS SUMMARY | 2024-08-01 07:55 | XMS_ITS | Encounter Summary ---
Author Name [facility] Organization [facility] Address [address] [place] [address] Care Team Providers Care Cellophane Casting Machine Repairer Name Role Phone JATINDER CABRERA Primary [...] PART A Sep 29, 2016 PART A [id number] [phone] JUDY WEAVER PATIENT Selected Encounter This section includes the information on record at ID for the Encounter. Date/Time Encounter Type Encounter Description Reason Provider Source Jul 16, 2024 06:36 PM POSTOP FOLLOW-UP VISIT GENERAL SURGERY ICD-10-CM K57.90 Dvrtclos of intest, part unsp, w/o perf or abscess w/o bleed MELISSA WYLIE Encounter Template Text not used by ID Assessments - Encounter Diagnoses This section includes the primary and secondary diagnoses documented for the Encounter. Date/Time Primary/Secondary Diagnosis Diagnosis Name Provider Source Jul 31, 2024 01:34 PM PRIMARY Dvrtclos of intest, part unsp, w/o perf or abscess w/o bleed SOCORRO ARREDONDO [facility] Plan of Treatment: Future Appointments (+ 6 months) and Future Tests (+/- 45 days) The Plan of Treatment section includes future care activities for the patient from all ID treatmentfacilities. This section includes future appointments and [...] of theEncounter. The data comes from all ID treatment facilities. Test Date/Time Test Type Test [...] Jul 20, 2024 06:50 PM Reporting Lab: [facility] [address] Performing Lab: [facility] [address] CREATININE 0.8 mg/dL 0.7-1.2 UREA NITROGEN 31 [...] Jul 20, 2024 06:50 PM Reporting Lab: [facility] [address] Performing Lab: [facility] [address] WBC 16.0 H 4.0-11.0 RBC 5.16 4.60-6.20 [...] Jul 20, 2024 08:22 AM Reporting Lab: [facility] [address] Performing Lab: [facility] [address] SODIUM,URINE RANDOM <20 mmol/L Jul 20, 2024 01:00 PM [facility] OSMOLALITY,URINE Specimen Type: URINE No comment entered. Ordering Provider: SARAI GOLDEN Report Released Date/Time: Jul 20, 2024 08:22 AM Reporting Lab: [facility] [address] Performing Lab: [facility] [address] OSMOLALITY,URIN E 648 mosm/kg 500-800 Jul 20, 2024 06:45 AM [facility] BASIC METABOLIC PANEL+MG Specimen Type: PLASMA No comment entered. Ordering Provider: SARAI GOLDEN Report Released Date/Time: Jul 19, 2024 06:13 PM Reporting Lab: [facility] [address] Performing Lab: [facility] [address] CREATININE 0.8 mg/dL 0.7-1.2 UREA NITROGEN 36 [...] Jul 19, 2024 06:13 PM Reporting Lab: [facility] [address] Performing Lab: [facility] [address] WBC 16.6 H 4.0-11.0 RBC 4.96 4.60-6.20 [...] Jul 20, 2024 09:47 AM Reporting Lab: [facility] [address] Performing Lab: [facility] [address] OSMOLALITY,SERU M 266 mosm/kg L 276-305 Jul 19, 2024 08:57 AM [facility] BASIC METABOLIC PANEL+MG Specimen Type: PLASMA No comment entered. Ordering Provider: SARAI GOLDEN Report Released Date/Time: Jul 18, 2024 10:24 PM Reporting Lab: [facility] [address] Performing Lab: [facility] [address] CREATININE 1.0 mg/dL 0.7-1.2 UREA NITROGEN 40 [...] Jul 18, 2024 10:24 PM Reporting Lab: [facility] [address] Performing Lab: [facility] [address] WBC 17.3 H 4.0-11.0 RBC 4.83 4.60-6.20 [...] Jul 17, 2024 01:54 PM Reporting Lab: [facility] [address] Performing Lab: [facility] [address] PHOSPHORUS 2.9 mg/dL 2.3-4.3 Jul 17, 2024 06:55 PM [facility] BASIC METABOLIC PANEL+MG Specimen Type: PLASMA No comment entered. Ordering Provider: SARAI GOLDEN Report Released Date/Time: Jul 17, 2024 01:54 PM Reporting Lab: [facility] [address] Performing Lab: [facility] [address] CREATININE 1.2 mg/dL 0.7-1.2 UREA NITROGEN 62 [...] Jul 16, 2024 04:52 PM Reporting Lab: [facility] [address] Performing Lab: [facility] [address] WBC 18.9 H 4.0-11.0 RBC 5.55 4.60-6.20 [...] Jul 16, 2024 12:12 PM Reporting Lab: [facility] [address] Performing Lab: [facility] [address] ALBUMIN 4.3 g/dL 3.5-5.0 Jul 17, 2024 07:00 AM [facility] COMPREHENSIVE METABOLIC PANEL+MG Specimen Type: PLASMA No comment entered. Ordering Provider: SARAI GOLDEN Report Released Date/Time: Jul 16, 2024 04:52 PM Reporting Lab: [facility] [address] Performing Lab: [facility] [address] CREATININE 1.3 mg/dL H 0.7-1.2 UREA NITROGEN [...] Jul 16, 2024 12:12 PM Reporting Lab: [facility] [address] Performing Lab: [facility] [address] LACTIC ACID 0.9 mmol/L 0.5-2.2 Jul 16, 2024 02:14 PM [facility] MRSA SURVL NARES DNA Specimen Type: NARES No comment entered. Ordering Provider: SARAI GOLDEN Report Released Date/Time: Jul 16, 2024 12:12 PM Reporting Lab: [facility] [address] Performing Lab: [facility] [address] MRSA SURVL NARES DNA NEGATIVE Negative Jul 16, 2024 02:10 PM [facility] LACTIC ACID Specimen Type: PLASMA No comment entered. Ordering Provider: SARAI GOLDEN Report Released Date/Time: Jul 16, 2024 12:12 PM Reporting Lab: [facility] [address] Performing Lab: [facility] [address] LACTIC ACID 0.9 mmol/L 0.5-2.2 Jul 16, 2024 02:08 PM [facility] COMPREHENSIVE METABOLIC PANEL+MG Specimen Type: PLASMA No comment entered. Ordering Provider: SARAI GOLDEN Report Released Date/Time: Jul 16, 2024 12:12 PM Reporting Lab: [facility] [address] Performing Lab: [facility] [address] CREATININE 2.0 mg/dL H 0.7-1.2 UREA NITROGEN [...] Jul 16, 2024 12:12 PM Reporting Lab: [facility] [address] Performing Lab: [facility] [address] WBC 19.7 H 4.0-11.0 RBC 5.39 4.60-6.20 [...] 2024 12:23 PM Reporting Lab: [facility] [address] Performing Lab: [facility] [address] PHOSPHORUS 3.0 mg/dL 2.3-4.3 Jul 10, 2024 07:16 AM [facility] BASIC METABOLIC PANEL+MG Specimen Type: PLASMA No comment entered. Ordering Provider: JUANCARLOS ECHOLS S Report Released Date/Time: Jul 09, 2024 12:23 PM Reporting Lab: [facility] [address] Performing Lab: [facility] [address] CREATININE 0.7 mg/dL 0.7-1.2 UREA NITROGEN 27 [...] 2024 12:23 PM Reporting Lab: [facility] [address] Performing Lab: [facility] [address] WBC 18.8 H 4.0-11.0 RBC 5.08 4.60-6.20 [...] Jul 08, 2024 06:18 PM Reporting Lab: [facility] [address] Performing Lab: [facility] [address] WBC 15.3 H 4.0-11.0 RBC 4.91 4.60-6.20 [...] Jul 08, 2024 08:41 AM Reporting Lab: [facility] [address] Performing Lab: [facility] [address] URINE COLOR YELLOW SPECIFIC GRAVITY >1.050 H [...] Jul 07, 2024 04:49 PM Reporting Lab: [facility] [address] Performing Lab: [facility] [address] WBC 17.5 H 4.0-11.0 RBC 4.88 4.60-6.20 [...] Jul 07, 2024 04:49 PM Reporting Lab: [facility] [address] Performing Lab: [facility] [address] PHOSPHORUS 2.6 mg/dL 2.3-4.3 Jul 08, 2024 09:54 AM [facility] BASIC METABOLIC PANEL+MG Specimen Type: PLASMA Comment: Specimen received in Lab at: [id number] Ordering Provider: JUANCARLOS ECHOLS Report Released Date/Time: Jul 07, 2024 04:49 PM Reporting Lab: [facility] [address] Performing Lab: [facility] [address] CREATININE 0.9 mg/dL 0.7-1.2 UREA NITROGEN 26 [...] Jul 07, 2024 12:26 PM Reporting Lab: [facility] [address] Performing Lab: [facility] [address] C DIFF TOX B GENE PCR NEGATIVE Negative Jul 07, 2024 07:41 AM [facility] PHOSPHORUS Specimen Type: PLASMA No comment entered. Ordering Provider: JEVON ZAZUETA Report Released Date/Time: Jul 06, 2024 03:44 PM Reporting Lab: [facility] [address] Performing Lab: [facility] [address] PHOSPHORUS 3.1 mg/dL 2.3-4.3 Jul 07, 2024 07:41 AM [facility] BASIC METABOLIC PANEL+MG Specimen Type: PLASMA No comment entered. Ordering Provider: JEVON ZAZUETA Report Released Date/Time: Jul 06, 2024 03:44 PM Reporting Lab: [facility] [address] Performing Lab: [facility] [address] CREATININE 0.9 mg/dL 0.7-1.2 UREA NITROGEN 20 [...] Jul 06, 2024 03:44 PM Reporting Lab: [facility] [address] Performing Lab: [facility] [address] WBC 21.2 H 4.0-11.0 RBC 5.09 4.60-6.20 [...] Jul 05, 2024 01:22 PM Reporting Lab: [facility] [address] Performing Lab: [facility] [address] WBC 18.0 H 4.0-11.0 RBC 4.83 4.60-6.20 [...] Jul 05, 2024 01:22 PM Reporting Lab: [facility] [address] Performing Lab: [facility] [address] PHOSPHORUS 3.6 mg/dL 2.3-4.3 Jul 06, 2024 07:21 AM [facility] BASIC METABOLIC PANEL+MG Specimen Type: PLASMA No comment entered. Ordering Provider: JEVON ZAZUETA Report Released Date/Time: Jul 05, 2024 01:22 PM Reporting Lab: [facility] [address] Performing Lab: [facility] [address] CREATININE 0.7 mg/dL 0.7-1.2 UREA NITROGEN 12 [...] Jul 04, 2024 09:39 AM Reporting Lab: [facility] [address] Performing Lab: [facility] [address] MAGNESIUM 2.0 mg/dL 1.6-2.6 Jul 05, 2024 07:17 AM [facility] PHOSPHORUS Specimen Type: PLASMA No comment entered. Ordering Provider: JUANCARLOS ECHOLS S Report Released Date/Time: Jul 04, 2024 09:39 AM Reporting Lab: [facility] [address] Performing Lab: [facility] [address] PHOSPHORUS 2.0 mg/dL L 2.3-4.3 Jul 05, 2024 07:17 AM [facility] BASIC METABOLIC PANEL+MG Specimen Type: PLASMA No comment entered. Ordering Provider: JUANCARLOS ECHOLS S Report Released Date/Time: Jul 04, 2024 09:39 AM Reporting Lab: [facility] [address] Performing Lab: [facility] [address] CREATININE 0.7 mg/dL 0.7-1.2 UREA NITROGEN 12 [...] Jul 04, 2024 09:39 AM Reporting Lab: [facility] [address] Performing Lab: [facility] [address] WBC 18.3 H 4.0-11.0 RBC 4.49 L [...] Jul 03, 2024 06:31 PM Reporting Lab: [facility] [address] Performing Lab: [facility] [address] CREATININE 0.7 mg/dL 0.7-1.2 UREA NITROGEN 16 [...] Jul 03, 2024 06:31 PM Reporting Lab: [facility] [address] Performing Lab: [facility] [address] PHOSPHORUS 2.8 mg/dL 2.3-4.3 Jul 04, 2024 07:16 AM [facility] CBC Specimen Type: BLOOD No comment entered. Ordering Provider: GABINO CAMERON Report Released Date/Time: Jul 03, 2024 06:31 PM Reporting Lab: [facility] [address] Performing Lab: [facility] [address] WBC 20.6 H 4.0-11.0 RBC 4.63 4.60-6.20 [...] Jul 03, 2024 06:31 PM Reporting Lab: [facility] [address] Performing Lab: [facility] [address] WBC 20.6 H 4.0-11.0 RBC 4.63 4.60-6.20 [...] Jul 03, 2024 06:31 PM Reporting Lab: [facility] [address] Performing Lab: [facility] [address] BNP 292 pg/mL H <99 Jul 03, 2024 10:32 PM [facility] FINGERSTICK GLUCOSE Specimen Type: BLOOD Comment: Save Result Nurse Notified Ordering Provider: KATELYNN PERSON Report Released Date/Time: Jul 03, 2024 10:50 PM Reporting Lab: [facility] [address] Performing Lab: [facility] [address] FINGERSTICK GLUCOSE 126 mg/dL H 70-100 Jul 03, 2024 05:33 PM [facility] FINGERSTICK GLUCOSE Specimen Type: BLOOD Comment: Save Result Nurse Notified Ordering Provider: KATELYNN PERSON Report Released Date/Time: Jul 03, 2024 05:46 PM Reporting Lab: [facility] [address] Performing Lab: [facility] [address] FINGERSTICK GLUCOSE 141 mg/dL H 70-100 Jul 03, 2024 02:31 PM [facility] POC ABG/ELECTROLYTES Specimen Type: ARTERIAL BLOOD Comment: FIO2 = 97% Patient Temp: 36.0 C Sample Type = ARTERIAL Ordering Provider: MAZIN ARREDONDO Report Released Date/Time: Jul 03, 2024 01:48 PM Reporting Lab: [facility] [address] Performing Lab: [facility] [address] POC PH 7.387 7.35-7.45 POC PCO2 34.4 [...] Jul 03, 2024 01:48 PM Reporting Lab: [facility] [address] Performing Lab: [facility] [address] POC PH 7.280 L 7.35-7.45 POC PCO2 [...] Jun 12, 2024 04:01 PM Reporting Lab: [facility] [address] Performing Lab: [facility] [address] URINE COLOR YELLOW SPECIFIC GRAVITY 1.031 1.003-1.03 [...] Jun 12, 2024 03:59 PM Reporting Lab: [facility] [address] Performing Lab: [facility] [address] WBC 15.8 H 4.0-11.0 RBC 5.11 4.60-6.20 [...] Jun 23, 2024 06:07 PM Reporting Lab: [facility] [address] Performing Lab: [facility] [address] CREATININE 0.8 mg/dL 0.7-1.2 UREA NITROGEN 13 [...] BLOOD Comment: Specimen received in Lab at: [id number] Ordering Provider: JEVON ZAZUETA Report Released Date/Time: Jun 23, 2024 06:07 PM Reporting Lab: [facility] [address] Performing Lab: [facility] [address] WBC 15.5 H 4.0-11.0 RBC 4.93 4.60-6.20 [...] Jun 22, 2024 05:51 PM Reporting Lab: [facility] [address] Performing Lab: [facility] [address] CREATININE 0.7 mg/dL 0.7-1.2 UREA NITROGEN 16 [...] Jun 22, 2024 05:51 PM Reporting Lab: [facility] [address] Performing Lab: [facility] [address] WBC 14.9 H 4.0-11.0 RBC 5.09 4.60-6.20 [...] Jun 22, 2024 05:51 PM Reporting Lab: [facility] [address] Performing Lab: [facility] [address] WBC 16.9 H 4.0-11.0 RBC 5.28 4.60-6.20 [...] Jun 22, 2024 05:51 PM Reporting Lab: [facility] [address] Performing Lab: [facility] [address] CREATININE 0.7 mg/dL 0.7-1.2 UREA NITROGEN 17 [...] Jun 21, 2024 05:45 PM Reporting Lab: [facility] [address] Performing Lab: [facility] [address] URINE COLOR YELLOW SPECIFIC GRAVITY 1.041 H [...] Jun 21, 2024 06:07 PM Reporting Lab: [facility] [address] Performing Lab: [facility] [address] POC CREATININE 1.1 mg/dL 0.6-1.3 Jun 21, 2024 05:30 PM [facility] POC ABG/LACTATE Specimen Type: VENOUS BLOOD No comment entered. Ordering Provider: DELIA MARTINEZ Report Released Date/Time: Jun 21, 2024 06:07 PM Reporting Lab: [facility] [address] Performing Lab: [facility] [address] POC PH 7.470 H 7.31-7.41 POC PCO2 [...] Jun 21, 2024 05:30 PM Reporting Lab: [facility] [address] Performing Lab: [facility] [address] .INR 1.2 H 0.8-1.1 .PT 13.9 s H 9.4-12.5 Jun 21, 2024 05:24 PM [facility] LIPASE Specimen Type: PLASMA No comment entered. Ordering Provider: DELIA MARTINEZ Report Released Date/Time: Jun 21, 2024 05:30 PM Reporting Lab: [facility] [address] Performing Lab: [facility] [address] LIPASE 32 U/L <60 Jun 21, 2024 05:24 PM [facility] EXTRA GOLD GEL TUBE Specimen Type: SERUM No comment entered. Ordering Provider: DELIA MARTINEZ Report Released Date/Time: Jun 21, 2024 05:41 PM Reporting Lab: [facility] [address] Performing Lab: [facility] [address] EXTRA GOLD GEL TUBE RECEIVED Jun 21, 2024 05:24 PM [facility] COMPREHENSIVE METABOLIC PANEL+MG Specimen Type: PLASMA No comment entered. Ordering Provider: DELIA MARTINEZ Report Released Date/Time: Jun 21, 2024 05:30 PM Reporting Lab: [facility] [address] Performing Lab: [facility] [address] CREATININE 0.9 mg/dL 0.7-1.2 UREA NITROGEN 29 [...] Jun 21, 2024 05:30 PM Reporting Lab: [facility] [address] Performing Lab: [facility] [address] WBC 21.3 H 4.0-11.0 RBC 5.48 4.60-6.20 [...] Jul 16, 2024 12:17 PM Yecenia LOZANO [facility] Social History: Smoking Status [...] 2016 CLINICAL WARNING TIM TERAN CARLOSEDUARDO LOZANO [facility] Radiology Reports: +/- [...] PM CHEST 1 VIEW: FLACA WEAVER YAMIL [id number] -1950 M Exm Date: JUL 18, 2024@18:15 Req Phys: LEISA GOLDEN Pat Loc: 07-18-2024@19:00 Img Loc: MAIN X-RAY Service: PRIMARY [place] [address] (Case [id number] COMPLETE) CHEST 1 VIEW (RAD Detailed) CPT:96186 Proc Modifiers : PORTABLE EXAM Reason for Study: SOB Clinical History: [place] IS NOT under investigation for COVID-19 or is COVID-19 negative 73 yo with SOB Responsible provider name and phone number to notify for critical findings if other than user placing the order and pager listed below: User placing orders pager: [phone] LAST CREATININE 1.2 (07/17/24) Report Status: Verified Date Reported: JUL 18, 2024 Date Verified: JUL 18, 2024 Leases And Land Supervisor E-Sig:/ES/ACRLOS A CUNNINGHAM DO Report: EXAMINATION: CHEST 1 VIEW Reason for Study: SOB IS NOT under investigation for COVID-19 or is COVID-19 negative 73 yo with SOB Responsible provider name and phone number to notify for critical findings if other than user placing the order and pager listed below: User placing orders pager: [phone] LAST CREATININE 1.2 (07/17/24) SOB TECHNIQUE: Single [...] Interpreting Staff: CARLOS A CUNNINGHAM DO, RADIOLOGIST (Leases And Land Supervisor) /KMB CARLOS A CUNNINGHAM [facility] Jul 16, 2024 07:[address] [facility] CT ABDOMEN/PELVIS: FLACA WEAVER [id number] -1950 M Exm Date: JUL 16, 2024@07:49 Req Phys: KEOEDGARDOGISELLSWEETIEJATINDER [place] Pat Loc: 07-17-2024@09:02 Img Loc: OUTSOURCE CT Service: Unknown (Case [id number] COMPLETE) NON ID CT ABDOMEN/PELVIS (CT Detailed) CPT:18166 Reason for Study: outside study Clinical History: outside study Report Status: Electronically Filed Date Reported: JUL 17, 2024 Report: This is an outside Imaging study and/or report imported for continuity of patient care. This Imaging study and/or report was not reviewed or verified by a ID Radiologist. Impression: This is an outside Imaging study and/or report imported for continuity of patient care. This Imaging study and/or report was not reviewed or verified by a ID Radiologist. Primary Diagnostic Code: VERIFIED BY: / *ELECTRONICALLY FILED* [facility] Jul 13, 2024 09:[address] ABDOMEN/PELVIS: FLACA WEAVER [id number] -1950 M Exm Date: JUL 13, 2024@09:41 Req Phys: ELIJATINDER Onofre Amanda Loc: 3ES07-17-2024@09:08 Img Loc: OUTSOURCE CT Service: Unknown (Case [id number] COMPLETE) NON ID CT ABDOMEN/PELVIS (CT Detailed) CPT:55276 Reason for Study: outside study Clinical History: outside study Report Status: Electronically Filed Date Reported: JUL 17, 2024 Report: This is an outside Imaging study and/or report imported for continuity of patient care. This Imaging study and/or report was not reviewed or verified by a ID Radiologist. Impression: This is an outside Imaging study and/or report imported for continuity of patient care. This Imaging study and/or report was not reviewed or verified by a ID Radiologist. Primary Diagnostic Code: VERIFIED BY: / *ELECTRONICALLY FILED* [facility] Jul 08, 2024 10:09 AM CHEST 2 VIEWS PA AND LAT: FLACA WEAVER [id number] -1950 M Exm Date: JUL 08, 2024@10:09 Req Phys: KATELYNN PERSON Loc: 07-08-2024@11:49 Img Loc: MAIN X-RAY Service: [place] [address] (Case 24 COMPLETE) CHEST 2 VIEWS PA AND LAT (RAD Detailed) CPT:05996 Reason for Study: Uptrending WBC, POD 5 Clinical History: [place] IS NOT under investigation for COVID-19 or is COVID-19 negative POD 5, work up for uptrending wbc Responsible provider name and phone number to notify for critical findings if other than user placing the order and pager listed below: User placing orders pager: Katelynn Person LAST CREATININE 0.9 (07/07/24) Report Status: Verified Date Reported: JUL 08, 2024 Date Verified: JUL 08, 2024 Leases And Land Supervisor E-Sig: Report: CHEST 2 VIEWS PA [...] cardiopulmonary disease. READING PHYSICIAN: Sarbjit Vaughn M.D. -[phone] 07/08/2024 12:46 EST [facility] National Teleradiology Program [phone] (For Medical Practitioner Use Only) Attention Patients / Veterans: If you have questions or concerns about these test results, please contact your ordering provider or primary care team. Primary Interpreting Staff: RADIOLOGY,OUTSIDE SERVICE, Staff Physician / RADIOLOGY,OUTSIDE SERVICE [facility] Jul 08, 2024 10:[address] CT (AP) ABDOMEN/PELVIS W CONTRAST: FLACA WEAVER YAMIL [id number] -1950 M Ex Date: JUL 08, 2024@10:00 Req Phys: KATELYNN PERSON [facility] Loc: [facility]/07-08-2024@12:07 Img Loc: CT IMAGING Service: [place] [address] (Case 22 COMPLETE) CT (AP) ABDOMEN/PELVIS W CONTRAST(CT Detailed) CPT:70628 Contrast Media : Non-ionic Iodinated Reason for [...] PLASMA .CREAT EGFR(CKD-E >90 Ref: >=60 Allergies: ([place] only) TERAZOSIN (Mar 13, 2015) Report Status: Verified Date Reported: JUL 08, 2024 Date Verified: JUL 08, 2024 Leases And Land Supervisor E-Sig: Report: CT (AP) ABDOMEN/PELVIS W [...] as noted above READING PHYSICIAN: Celestino Blanc -[phone] 07/08/2024 13:04 EST [facility] National Teleradiology Program [phone] (For Medical Practitioner Use Only) Attention Patients / Veterans: If you have questions or concerns about these test results, please contact your ordering provider or primary care team. Primary Interpreting Staff: RADIOLOGY,OUTSIDE SERVICE, Staff Physician / RADIOLOGY,OUTSIDE SERVICE [facility] Jun 22, 2024 11:49 AM ABSCESS DRAIN PLACEMENT PERITONEAL (P): MEGFLACADARCI LOBO [id number] -1950 M Exm Date: JUN 22, 2024@11:49 Req Phys: ANGELA HOLDEN Loc: [facility]/06-22-2024@17:14 Img Loc: INTERVENTIONAL RADIOLOGY Service: [place] [address] (Case [id number] COMPLETE) IR PERITONEAL/RETROPERITONEAL PER(ANI Detailed) CPT:90428 Reason for Study: diverticulitis with abscess (Case 3570 COMPLETE) IR MOD SEDATION 10-22 MIN (ANI Detailed) CPT:70223 Clinical History: IS NOT under investigation for COVID-19 or is COVID-19 negative 73 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 please place abscess drain. Contact number for responsible provider who can be reached for any questions or notifications of critical findings: [phone] n/a LAST CREATININE 0.9 (06/21/24) Report Status: Verified Date Reported: JUN 22, 2024 Date Verified: JUN 22, 2024 Leases And Land Supervisor E-Sig:/ES/LISA PENDLETON MD Report: PROCEDURES: Placement [...] Using real-time CT fluoroscopy, a 5 Singaporean One Jacksonesis catheter was advanced into the collection in [...] Primary Interpreting Staff: LISA PENDLETON MD, RADIOLOGIST (Leases And Land Supervisor) /LISA CARDONA [facility] Jun 22, 2024 11:[address] NEEDLE PLACEMENT (P): MEGFLACADARCI LOBO [id number] -1950 M Exm Date: JUN 22, 2024@11:48 Req Phys: ANGELA HOLDEN [facility] Loc: [facility]/06-22-2024@17:14 Img Loc: CT IMAGING Service: [place] [address] (Case [id number] COMPLETE) CT SCAN FOR NEEDLE PLACEMENT (CT Detailed) CPT:08504 Reason for Study: l pelvic abscess drain Clinical History: Report Status: Verified Date Reported: JUN 22, 2024 Date Verified: JUN 22, 2024 Leases And Land Supervisor E-Sig:/ES/LISA PENDLETON MD Report: PROCEDURES: Placement [...] Using real-time CT fluoroscopy, a 5 Singaporean One Jacksonesis catheter was advanced into the collection in [...] Primary Interpreting Staff: LISA PENDLETON MD, RADIOLOGIST (Leases And Land Supervisor) /JRT LISA PENDLETON [facility] Jun 21, 2024 06:[address] (AP) ABDOMEN/PELVIS (P): FLACA EWAVER [id number] -1950 Ex Date: JUN 21, 2024@18:09 Req Phys: DELIA MARTINEZ Loc: [facility] EMERGENCY DEPT WALK-IN (Re Img Loc: CT IMAGING Service: [place] [address] (Case [id number] COMPLETE) CT (AP) ABDOMEN/PELVIS W CONTRAST(CT Detailed) CPT:23653 Contrast Media : Non-ionic Iodinated Reason for [...] PLASMA .CREAT EGFR(CKD-E >90 Ref: >=60 Allergies: ([place] only) TERAZOSIN (Mar 13, 2015) Defer to [...] 21, 2024 Date Verified: JUN 21, 2024 [employer]ases [employer] Land Supervisor E-Sig:/ALEXI/CARLOS A CUNNINGHAM DO Report: EXAMINATION: [...] Interpreting Staff: CARLOS A CUNNINGHAM DO, RADIOLOGIST (Leases And Land Supervisor) /CARLOS A ROWELL [facility] Pathology [...] PORT: Reporting Lab: [facility] [CLIA# [id number]] [place] [address] Accession [UID]: [id number] [[id number]] Received: Jul 16, 2024@14:41 Collection sample: BLOOD Collection date: Jul 16, 2024 14:07 Provider: LEISA GOLDEN Comment on specimen: Manish AC, RECEIVED 2 BLOOD CULTURE BOTTLES Test(s) ordered: CULTURE & SUSCEPTIBILITY...... completed: Jul 22, 2024 * BACTERIOLOGY FINAL REPORT => Jul 22, 2024 13:39 TECH CODE: [id number] CULTURE RESULTS: NO GROWTH 5 DAYS Bacteriology Remark(s): THIS REPORT IS FINAL =--=--=--=--=--=--=--=--=--= --=--=--=--=--=--=--=--=--=- -=--=--=--=--=--=--=-- Performing Laboratory: Bacteriology Report Performed By: [facility] [CLIA# [id number]] [place] [address] [facility] Jul 16, 2024 01:54 PM LR MICROBIOLOGY RE PORT: Reporting Lab: [facility] [CLIA# [id number]] [place] [address] Accession [UID]: [id number]] Received: Jul 16, 2024@14:41 Collection sample: BLOOD Collection date: Jul 16, 2024 13:54 Provider: LEISA GOLDEN Comment on specimen: L AC, RECEIVED 2 BLOOD CULTURE BOTTLES Test(s) ordered: CULTURE & SUSCEPTIBILITY...... completed: Jul 22, 2024 * BACTERIOLOGY FINAL REPORT => Jul 22, 2024 13:39 TECH CODE: [id number] CULTURE RESULTS: NO GROWTH 5 DAYS Bacteriology Remark(s): THIS REPORT IS FINAL =--=--=--=--=--=--=--=--=--= --=--=--=--=--=--=--=--=--=- -=--=--=--=--=--=--=-- Performing Laboratory: Bacteriology Report Performed By: [facility] [CLIA# [id number]] [place] [address] [facility] Jul 03, 2024 05:59 AM LR SURGICAL PATHOL OGY REPORT: LOCAL TITLE: LR SURGICAL PATHOLOGY REPORT STANDARD TITLE: PATHOLOGY REPORT DATE OF NOTE: JUL 06, 2024@10:40:48 ENTRY DATE: JUL 06, 2024@10:40:48 AUTHOR: EDUARDO PALOMARES EXP COSIGNER: URGENCY: STATUS: COMPLETED $APHDR Reporting Lab: [facility] [CLIA# [id number]] [place] [address] - - - - - - - [...] - PATHOLOGY REPORT Accession No. [id number] - - - - - - - [...] - PATHOLOGY REPORT Accession No. [id number] - - - - - - - [...] Second circumferential surgical margin, en face; E-F: Real Estate Clerk diverticula; G: Real Estate Clerk section of mesentery; H: Random environmental marketing representative section of additional adipose tissue [...] colonic tissue ring, bisected transversely. SS. (D[facility] MICROSCOPIC DESCRIPTION: Microscopic examination performed. DIAGNOSIS: 1. Colon, sigmoid, sigmoidectomy-- - Diverticulosis with perforation and focal abscess formation 2. Colon, anastomotic rings, excision-- - Viable colonic mucosa without diagnostic abnormality /es/ EDUARDO PALOMARES MD STAFF PATHOLOGIST Signed Jul 06, 2024@10:40 Performing Laboratory: Surgical Pathology Report Performed By: [facility] [CLIA# [id number]] [place] [address] $FTR - - - - - - [...] - - FLACA [employer]ER STANDARD FORM 515 ID:[id number] SEX:M :1950 AGE: 73 LOC:[id number] ADM:Jun DX:DIVERTICULITIS PCP: Jatinder Cabrera /alexi/ EDUARDO PALOMARES MD STAFF PATHOLOGIST Signed: 07/06/2024 10:40 EDUARDO PALOMARES [facility] Jun 22, 2024 01:15 PM LR MICROBIOLOGY RE PORT: Reporting Lab: [facility] [CLIA# [id number]] [place] [address] Accession [UID]: [id number] [[id number]] Received: Jun 22, 2024@13:38 Collection sample: FLUID Collection date: Jun 22, 2024 13:15 Provider: ANGELA HOLDEN Comment on specimen: LLQ ABSCESS, RECEIVED IN ANAEROBIC TRANSPORT VIAL Test(s) ordered: GRAM STAIN.................... completed: Jun 22, 2024 15:03 CULTURE & SUSCEPTIBILITY...... completed: Jun 25, 2024 * BACTERIOLOGY FINAL REPORT => Jun 25, 2024 10:56 TECH CODE: [id number] GRAM STAIN: DIRECT SMEAR of specimen before [...] Report Performed By: [facility] [CLIA# [id number]] [place] [address] [facility] Jun 22, 2024 01:15 PM LR MICROBIOLOGY RE PORT: Reporting Lab: [facility] [CLIA# [id number]] [place] [address] Accession [UID]: [id number] [[id number]] Received: Jun 22, 2024@13:38 Collection sample: FLUID Collection date: Jun 22, 2024 13:15 Provider: ANGELA HOLDEN Comment on specimen: LLQ ABSCESS, RECEIVED IN ANAEROBIC TRANSPORT VIAL Test(s) ordered: ANAEROBIC CULTURE............. completed: Jun 28, 2024 * BACTERIOLOGY FINAL REPORT => Jun 28, 2024 10:08 TECH CODE: [id number] CULTURE RESULTS: HEAVY GROWTH MIXED ANAEROBES Comment: [...] Report Performed By: [facility] [CLIA# [id number]] [place] [address] [facility] Jun 21, 2024 06:12 PM LR MICROBIOLOGY RE PORT: Reporting Lab: [facility] [CLIA# [id number]] [place] [address] Accession [UID]: [id number] [[id number]] Received: Jun 21, 2024@18:12 Collection sample: BLOOD [...] Report Performed By: [facility] [CLIA# [id number]] [place] [address] [facility] Jun 21, 2024 06:11 PM LR MICROBIOLOGY RE PORT: Reporting Lab: [facility] [CLIA# [id number]] [place] [address] Accession [UID]: [id number] [[id number]] Received: Jun 21, 2024@18:11 Collection sample: BLOOD [...] Report Performed By: [facility] [CLIA# [id number]] [place] [address] [facility] Encounter Notes: All associated encounter notes This section contains the clinical notes associated to the Encounter. Date/Time Encounter Note(s) Provider Source Jul 16, 2024 06:36 PM COLON & RECTAL ELISA BRAEDEN CONSULT: LOCAL TITLE: PROCTO/COLORECTAL CONSULT STANDARD TITLE: COLON & RECTAL SURGERY CONSULT DATE OF NOTE: JUL 16, 2024@18:36 ENTRY DATE: JUL 16, 2024@18:40 AUTHOR: LESLEE QUINTANA COSIGNER: URGENCY: STATUS: COMPLETED COLORECTAL SURGERY CONSULT NOTE 74 y/o M with h/o CAD, HLD, [...] placement with [facility]S [facility] Urology on 07/03/24. Presented to OSH on 07/13, per our review of records received CT scan and discharged from ED. On 07/16, he represented to OSH for worsening fatigue, nausea, lightheadedness/SOB, with concerns for severe sepsis. [facility]red [facility] 07/[facility]. Gen surg consulted for incidental incisional hernia found on CT scan. Also 07/13 read with c/f colovesicular fistula but not commented on 07/16. Denies abd pain, N/V, SOB, CP. No bloody stool output. Currently NPO. Having increased watery light christianson/yellowish colostomy output, which required RN to hook to Mathew bag to manage. States he thinks he was dehydrated on presentation, consistent with lab findings. ROS: no h/o seizures or stroke no vision changes no major mood changes (I'm crabby as hell) no SOB no CP no abd p increased colostomy output no hematuria, urinating without difficulty positive for muscle aches on presentation, now improving no known bleeding/clotting problems no tobacco or alcohol use. previous daily marijuana user, reports he has stopped since becoming sick - weeks to 1 month since last use PE: VS reviewed - afebrile, HDS NAD, laying in bed comfortably alert and orientated, no FND grossly nontachycardic NLB on RA abd soft, nondistended, nontender ostomy pink and healthy appearing. significant christianson-yellow watery output with stool particles present, mathew attached to colostomy incision clean, dry, intact. closed with jeannine. no purulence or discharge. appearing with epithelialization appropriately. mild genevieve-incisional erythema consistent with standard healing process. Mild colostomy drainage present on wound but cleaned off. No edema or fluid collection appreciated. Incisional hernia not appreciated by this author on physical exam. ext warm and well perfused, no BLE edema labs reviewed, notable for leukocytosis to 19.7 and Cr to 2.0 (baseline 0.7). Hyponatremia to 128 (baseline 133). BC pending. Imaging impression reports taken verbally from IM team but not able to review charts or images at this time. Will pursue this information further. 74 y/o M with h/o CAD, HLD, HTN, CKD, HFrEF, and diverticulitis (c/b colovesicular fistula), s/p laparoscopic converted to open sigmoid colectomy, splenic flexure mobilization, diverting loop ileostomy, flex sig with bilateral ureteral stent placement with CRS & Urology on 07/03/24, admitted as a transfer from OSH for sepsis, for whom we are consulted for incisional hernia. No evidence of symptoms resulting from hernia, and no strangulation or incarceration noted, consistent with OSH CT read from today 07/16. We do not recommend acute surgical intervention at this time. Reassuringly, he is showing evidence of symptomatic improvement in regards to sepsis. - cont NPO - sips & chips ok - appreciate IM cares, particularly re: septic source - consider UA, C diff if not already collected - cont Vanc and Zosyn - cont LR mIVF This case d/w fellow /alexi/ LESLEE QUINTANA MD Signed: 07/16/2024 19:23 Receipt Acknowledged By: 07/17/2024 17:44 /alexi/ MARYBETH POWELL MD STAFF SURGEON, COLON/RECTAL for CHAPITO Onofre EARLENE 07/17/2024 17:42 /alexi/ MARYBETH POWELL MD STAFF SURGEON, COLON/RECTAL LESLEE QUINTANA [facility]
[2024-08-01 07:56] LABS: Alanine Aminotransferase* 38 U/L (4-50); Alkaline Phosphatase* 90 U/L (40-150); Anion Gap 12 mEq/L (7-15); Aspartate Amino Transferase* 30 U/L (12-35); Bilirubin Total* 0.4 mg/dL (0.1-1.5); Blood Urea Nitrogen* 27 mg/dL (7-30); Calcium* 9.7 mg/dL (8.4-10.6); Carbon Dioxide* 15 mmol/L (20-32); Glucose* 118 mg/dL (60-115); Lipase* 95 U/L (23-300); Total Protein* 7.2 g/dL (6.0-8.3)
--- OUTSIDE RECORDS SUMMARY | 2024-08-01 07:56 | XMS_ITS ---
[place] DAILY HOSPITALIZATION DATA [facility] HCS Encounter Summary Created on: August 01, 2024 MEG FLACADARCI LOBO : 1950 Sex: Male Author Name [facility] [facility] [place] Address [address] [place] [address] Care Team Providers Care Landmen Name Role Phone JATINDER CABRERA Primary Care [...] PART A Sep 29, 2016 PART A [phone] JUDY WEAVER PATIENT Selected Encounter This section includes the information on record at [place] for the Encounter. Date/Time Encounter Type Encounter Description Reason Pro vider Source Jul 16, 2024 08:38 PM Inpatient Visit DAILY HOSPITALIZATION DATA I[facility] [...] Range Comment Jul 21, 2024 10:38 AM [facility] BASIC METABOLIC PANEL+MG Specimen Type: PLASMA No comment entered. Ordering Provider: SARAI GOLDEN Report Released Date/Time: Jul 20, 2024 06:50 PM Reporting Lab: [facility] [address] Performing Lab: [facility] [address] CREATININE 0.8 mg/dL 0.7-1.2 UREA NITROGEN 31 mg/dL H 8-26 GLUCOSE 120 mg/dL H 70-100 SODIUM 125 mmol/L L 136-145 POTASSIUM 4.4 mmol/L 3.5-5.1 CHLORIDE 100 mmol/L 98-107 CO2 17 mmol/L L 22-29 CALCIUM 9.6 mg/dL 8.4-10.2 MAGNESIUM 1.9 mg/dL 1.6-2.6 ANION GAP 8 mmol/L 5-15 .CREAT EGFR(CKD-EPI) >90 >60 Jul 21, 2024 10:38 AM [facility] CBC Specimen Type: BLOOD No comment entered. Ordering Provider: SARAI GOLDEN Report Released Date/Time: Jul 20, 2024 06:50 PM Reporting Lab: [facility] [address] Performing Lab: [facility] [address] WBC 16.0 H 4.0-11.0 RBC 5.16 4.60-6.20 HGB 15.8 g/dL 13.5-17.9 HCT 45.5 41.0-54.0 MCV 88.2 fL 80.0-100.0 MCH 30.6 pg 27.0-33.0 MCHC 34.7 g/dL 32.0-37.5 PLT 428 H 150-400 MPV 10.8 fL 9.1-13.0 RDW 13.6 11.5-14.5 Jul 20, 2024 01:00 PM [facility] SODIUM,URINE RANDOM Specimen Type: URINE No comment entered. Ordering Provider: SARAI GOLDEN Report Released Date/Time: Jul 20, 2024 08:22 AM Reporting Lab: [facility] [address] Performing Lab: [facility] [address] SODIUM,URINE RANDOM <20 mmol/L Jul 20, 2024 01:00 PM [facility] OSMOLALITY,URINE Specimen Type: URINE No comment entered. Ordering Provider: SARAI GOLDEN Report Released Date/Time: Jul 20, 2024 08:22 AM Reporting Lab: [facility] [address] Performing Lab: [facility] [address] OSMOLALITY,URIN E 648 mosm/kg 500-800 Jul 20, 2024 06:45 AM [facility] BASIC METABOLIC PANEL+MG Specimen Type: PLASMA No comment entered. Ordering Provider: SARAI GOLDEN Report Released Date/Time: Jul 19, 2024 06:13 PM Reporting Lab: [facility] [address] Performing Lab: [facility] [address] CREATININE 0.8 mg/dL 0.7-1.2 UREA NITROGEN 36 mg/dL H 8-26 GLUCOSE 111 mg/dL H 70-100 SODIUM 121 mmol/L L 136-145 POTASSIUM 4.1 mmol/L 3.5-5.1 CHLORIDE 99 mmol/L 98-107 CO2 14 mmol/L L 22-29 CALCIUM 9.5 mg/dL 8.4-10.2 MAGNESIUM 1.8 mg/dL 1.6-2.6 ANION GAP 8 mmol/L 5-15 .CREAT EGFR(CKD-EPI) >90 >60 Jul 20, 2024 06:43 AM [facility] CBC & DIFF Specimen Type: BLOOD Comment: Automated Differential Performed Ordering Provider: SARAI GOLDEN Report Released Date/Time: Jul 19, 2024 06:13 PM Reporting Lab: [facility] [address] Performing Lab: [facility] [address] WBC 16.6 H 4.0-11.0 RBC 4.96 4.60-6.20 [...] H 0.0-0.1 Jul 20, 2024 05:30 AM [facility] OSMOLALITY,SERUM Specimen Type: SERUM No comment entered. Ordering Provider: SARAI GOLDEN Report Released Date/Time: Jul 20, 2024 09:47 AM Reporting Lab: [facility] [address] Performing Lab: [facility] [address] OSMOLALITY,SERU M 266 mosm/kg L 276-305 Jul 19, 2024 08:57 AM [facility] BASIC METABOLIC PANEL+MG Specimen Type: PLASMA No comment entered. Ordering Provider: SARAI GOLDEN Report Released Date/Time: Jul 18, 2024 10:24 PM Reporting Lab: [facility] [address] Performing Lab: [facility] [address] CREATININE 1.0 mg/dL 0.7-1.2 UREA NITROGEN 40 mg/dL H 8-26 GLUCOSE 104 mg/dL H 70-100 SODIUM 129 mmol/L L 136-145 POTASSIUM 3.3 mmol/L L 3.5-5.1 CHLORIDE 104 mmol/L 98-107 CO2 16 mmol/L L 22-29 CALCIUM 8.0 mg/dL L 8.4-10.2 MAGNESIUM 1.7 mg/dL 1.6-2.6 ANION GAP 9 mmol/L 5-15 .CREAT EGFR(CKD-EPI) 80 >60 Jul 19, 2024 08:57 AM [facility] CBC Specimen Type: BLOOD No comment entered. Ordering Provider: SARAI GOLDEN Report Released Date/Time: Jul 18, 2024 10:24 PM Reporting Lab: [facility] [address] Performing Lab: [facility] [address] WBC 17.3 H 4.0-11.0 RBC 4.83 4.60-6.20 HGB 14.8 g/dL 13.5-17.9 HCT 42.6 41.0-54.0 MCV 88.2 fL 80.0-100.0 MCH 30.6 pg 27.0-33.0 MCHC 34.7 g/dL 32.0-37.5 PLT 456 H 150-400 MPV 10.8 fL 9.1-13.0 RDW 13.7 11.5-14.5 Jul 17, 2024 06:55 PM [facility] PHOSPHORUS Specimen Type: PLASMA No comment entered. Ordering Provider: SARAI GOLDEN Report Released Date/Time: Jul 17, 2024 01:54 PM Reporting Lab: [facility] [address] Performing Lab: [facility] [address] PHOSPHORUS 2.9 mg/dL 2.3-4.3 Jul 17, 2024 06:55 PM [facility] BASIC METABOLIC PANEL+MG Specimen Type: PLASMA No comment entered. Ordering Provider: SARAI GOLDEN Report Released Date/Time: Jul 17, 2024 01:54 PM Reporting Lab: [facility] [address] Performing Lab: [facility] [address] CREATININE 1.2 mg/dL 0.7-1.2 UREA NITROGEN 62 mg/dL H 8-26 GLUCOSE 116 mg/dL H 70-100 SODIUM 128 mmol/L L 136-145 POTASSIUM 3.8 mmol/L 3.5-5.1 CHLORIDE 100 mmol/L 98-107 CO2 16 mmol/L L 22-29 CALCIUM 9.3 mg/dL 8.4-10.2 MAGNESIUM 2.1 mg/dL 1.6-2.6 ANION GAP 12 mmol/L 5-15 .CREAT EGFR(CKD-EPI) 64 >60 Jul 17, 2024 07:00 AM [facility] CBC & DIFF Specimen Type: BLOOD Comment: Manual Differential Performed Ordering Provider: SARAI GOLDEN Report Released Date/Time: Jul 16, 2024 04:52 PM Reporting Lab: [facility] [address] Performing Lab: [facility] [address] WBC 18.9 H 4.0-11.0 RBC 5.55 4.60-6.20 [...] MORPHOLOGY PRESENT Jul 17, 2024 07:00 AM [facility] ALBUMIN Specimen Type: PLASMA No comment entered. Ordering Provider: SARAI GOLDEN Report Released Date/Time: Jul 16, 2024 12:12 PM Reporting Lab: [facility] [address] Performing Lab: [facility] [address] ALBUMIN 4.3 g/dL 3.5-5.0 Jul 17, 2024 07:00 AM [facility] COMPREHENSIVE METABOLIC PANEL+MG Specimen Type: PLASMA No comment entered. Ordering Provider: SARAI GOLDEN Report Released Date/Time: Jul 16, 2024 04:52 PM Reporting Lab: [facility] [address] Performing Lab: [facility] [address] CREATININE 1.3 mg/dL H 0.7-1.2 UREA NITROGEN [...] L >60 Jul 16, 2024 07:10 PM [facility] LACTIC ACID Specimen Type: PLASMA No comment entered. Ordering Provider: SARAI GOLDEN Report Released Date/Time: Jul 16, 2024 12:12 PM Reporting Lab: [facility] [address] Performing Lab: [facility] [address] LACTIC ACID 0.9 mmol/L 0.5-2.2 Jul 16, 2024 02:14 PM [facility] MRSA SURVL NARES DNA Specimen Type: NARES No comment entered. Ordering Provider: SARAI GOLDEN Report Released Date/Time: Jul 16, 2024 12:12 PM Reporting Lab: [facility] [address] Performing Lab: [facility] [address] MRSA SURVL NARES DNA NEGATIVE Negative Jul 16, 2024 02:10 PM [facility] LACTIC ACID Specimen Type: PLASMA No comment entered. Ordering Provider: SARAI GOLDEN Report Released Date/Time: Jul 16, 2024 12:12 PM Reporting Lab: [facility] [address] Performing Lab: [facility] [address] LACTIC ACID 0.9 mmol/L 0.5-2.2 Jul 16, 2024 02:08 PM [facility] COMPREHENSIVE METABOLIC PANEL+MG Specimen Type: PLASMA No comment entered. Ordering Provider: SARAI GOLDEN Report Released Date/Time: Jul 16, 2024 12:12 PM Reporting Lab: [facility] [address] Performing Lab: [facility] [address] CREATININE 2.0 mg/dL H 0.7-1.2 UREA NITROGEN [...] L >60 Jul 16, 2024 02:08 PM [facility] CBC & DIFF Specimen Type: BLOOD Comment: Manual Differential Performed Ordering Provider: SARAI GOLDEN Report Released Date/Time: Jul 16, 2024 12:12 PM Reporting Lab: [facility] [address] Performing Lab: [facility] [address] WBC 19.7 H 4.0-11.0 RBC 5.39 4.60-6.20 [...] MORPHOLOGY PRESENT Jul 10, 2024 07:16 AM [facility] PHOSPHORUS Specimen Type: PLASMA No comment entered. Ordering Provider: JUANCARLOS ECHOLS Report Released Date/Time: Jul 09, 2024 12:23 PM Reporting Lab: [facility] [address] Performing Lab: [facility] [address] PHOSPHORUS 3.0 mg/dL 2.3-4.3 Jul 10, 2024 07:16 AM [facility] BASIC METABOLIC PANEL+MG Specimen Type: PLASMA No comment entered. Ordering Provider: JUANCARLOS ECHOLS S Report Released Date/Time: Jul 09, 2024 12:23 PM Reporting Lab: [facility] [address] Performing Lab: [facility] [address] CREATININE 0.7 mg/dL 0.7-1.2 UREA NITROGEN 27 [...] Jul 09, 2024 12:23 PM Reporting Lab: [facility] [address] Performing Lab: [facility] [address] WBC 18.8 H 4.0-11.0 RBC 5.08 4.60-6.20 [...] Jul 08, 2024 06:18 PM Reporting Lab: [facility] [address] Performing Lab: [facility] [address] WBC 15.3 H 4.0-11.0 RBC 4.91 4.60-6.20 [...] Jul 08, 2024 08:41 AM Reporting Lab: [facility] [address] Performing Lab: [facility] [address] URINE COLOR YELLOW SPECIFIC GRAVITY >1.050 H [...] Jul 07, 2024 04:49 PM Reporting Lab: [facility] [address] Performing Lab: [facility] [address] WBC 17.5 H 4.0-11.0 RBC 4.88 4.60-6.20 [...] Jul 07, 2024 04:49 PM Reporting Lab: [facility] [address] Performing Lab: [facility] [address] PHOSPHORUS 2.6 mg/dL 2.3-4.3 Jul 08, 2024 09:54 AM [facility] BASIC METABOLIC PANEL+MG Specimen Type: PLASMA Comment: Specimen received in Lab at: [id number] Ordering Provider: JUANCARLOS ECHOLS Report Released Date/Time: Jul 07, 2024 04:49 PM Reporting Lab: [facility] [address] Performing Lab: [facility] [address] CREATININE 0.9 mg/dL 0.7-1.2 UREA NITROGEN 26 [...] Jul 07, 2024 12:26 PM Reporting Lab: [facility] [address] Performing Lab: [facility] [address] C DIFF TOX B GENE PCR NEGATIVE Negative Jul 07, 2024 07:41 AM [facility] BASIC METABOLIC PANEL+MG Specimen Type: PLASMA No comment entered. Ordering Provider: JEVON ZAZUETA Report Released Date/Time: Jul 06, 2024 03:44 PM Reporting Lab: [facility] [address] Performing Lab: [facility] [address] CREATININE 0.9 mg/dL 0.7-1.2 UREA NITROGEN 20 mg/dL 8-26 GLUCOSE 157 mg/dL H 70-100 SODIUM 136 mmol/L 136-145 POTASSIUM 3.7 mmol/L 3.5-5.1 CHLORIDE 102 mmol/L 98-107 CO2 21 mmol/L L 22-29 CALCIUM 9.8 mg/dL 8.4-10.2 MAGNESIUM 1.9 mg/dL 1.6-2.6 ANION GAP 13 mmol/L 5-15 .CREAT EGFR(CKD-EPI) >90 >60 Jul 07, 2024 07:41 AM [facility] PHOSPHORUS Specimen Type: PLASMA No comment entered. Ordering Provider: JEVON ZAZUETA Report Released Date/Time: Jul 06, 2024 03:44 PM Reporting Lab: [facility] [address] Performing Lab: [facility] [address] PHOSPHORUS 3.1 mg/dL 2.3-4.3 Jul 07, 2024 07:40 AM [facility] CBC Specimen Type: BLOOD No comment entered. Ordering Provider: JEVON ZAZUETA Report Released Date/Time: Jul 06, 2024 03:44 PM Reporting Lab: [facility] [address] Performing Lab: [facility] [address] WBC 21.2 H 4.0-11.0 RBC 5.09 4.60-6.20 [...] Jul 05, 2024 01:22 PM Reporting Lab: [facility] [address] Performing Lab: [facility] [address] WBC 18.0 H 4.0-11.0 RBC 4.83 4.60-6.20 [...] Jul 05, 2024 01:22 PM Reporting Lab: [facility] [address] Performing Lab: [facility] [address] PHOSPHORUS 3.6 mg/dL 2.3-4.3 Jul 06, 2024 07:21 AM [facility] BASIC METABOLIC PANEL+MG Specimen Type: PLASMA No comment entered. Ordering Provider: JEVON ZAZUETA Report Released Date/Time: Jul 05, 2024 01:22 PM Reporting Lab: [facility] [address] Performing Lab: [facility] [address] CREATININE 0.7 mg/dL 0.7-1.2 UREA NITROGEN 12 [...] Jul 04, 2024 09:39 AM Reporting Lab: [facility] [address] Performing Lab: [facility] [address] MAGNESIUM 2.0 mg/dL 1.6-2.6 Jul 05, 2024 07:17 AM [facility] PHOSPHORUS Specimen Type: PLASMA No comment entered. Ordering Provider: JUANCARLOS ECHOLS S Report Released Date/Time: Jul 04, 2024 09:39 AM Reporting Lab: [facility] [address] Performing Lab: [facility] [address] PHOSPHORUS 2.0 mg/dL L 2.3-4.3 Jul 05, 2024 07:17 AM [facility] BASIC METABOLIC PANEL+MG Specimen Type: PLASMA No comment entered. Ordering Provider: JUANCARLOS ECHOLS S Report Released Date/Time: Jul 04, 2024 09:39 AM Reporting Lab: [facility] [address] Performing Lab: [facility] [address] CREATININE 0.7 mg/dL 0.7-1.2 UREA NITROGEN 12 [...] Jul 04, 2024 09:39 AM Reporting Lab: [facility] [address] Performing Lab: [facility] [address] WBC 18.3 H 4.0-11.0 RBC 4.49 L [...] Jul 03, 2024 06:31 PM Reporting Lab: [facility] [address] Performing Lab: [facility] [address] CREATININE 0.7 mg/dL 0.7-1.2 UREA NITROGEN 16 [...] Jul 03, 2024 06:31 PM Reporting Lab: [facility] [address] Performing Lab: [facility] [address] PHOSPHORUS 2.8 mg/dL 2.3-4.3 Jul 04, 2024 07:16 AM [facility] CBC Specimen Type: BLOOD No comment entered. Ordering Provider: GABINO CAMERON Report Released Date/Time: Jul 03, 2024 06:31 PM Reporting Lab: [facility] [address] Performing Lab: [facility] [address] WBC 20.6 H 4.0-11.0 RBC 4.63 4.60-6.20 [...] Jul 03, 2024 06:31 PM Reporting Lab: [facility] [address] Performing Lab: [facility] [address] WBC 20.6 H 4.0-11.0 RBC 4.63 4.60-6.20 [...] Jul 03, 2024 06:31 PM Reporting Lab: [facility] [address] Performing Lab: [facility] [address] BNP 292 pg/mL H <99 Jul 03, 2024 10:32 PM [facility] FINGERSTICK GLUCOSE Specimen Type: BLOOD Comment: Save Result Nurse Notified Ordering Provider: KATELYNN PERSON Report Released Date/Time: Jul 03, 2024 10:50 PM Reporting Lab: [facility] [address] Performing Lab: [facility] [address] FINGERSTICK GLUCOSE 126 mg/dL H 70-100 Jul 03, 2024 05:33 PM [facility] FINGERSTICK GLUCOSE Specimen Type: BLOOD Comment: Save Result Nurse Notified Ordering Provider: KATLEYNN PERSON Report Released Date/Time: Jul 03, 2024 05:46 PM Reporting Lab: [facility] [address] Performing Lab: [facility] [address] FINGERSTICK GLUCOSE 141 mg/dL H 70-100 Jul 03, 2024 02:31 PM [facility] POC ABG/ELECTROLYTES Specimen Type: ARTERIAL BLOOD Comment: FIO2 = 97% Patient Temp: 36.0 C Sample Type = ARTERIAL Ordering Provider: MAZIN ARREDONDO Report Released Date/Time: Jul 03, 2024 01:48 PM Reporting Lab: [facility] [address] Performing Lab: [facility] [address] POC PH 7.387 7.35-7.45 POC PCO2 34.4 [...] Jul 03, 2024 01:48 PM Reporting Lab: [facility] [address] Performing Lab: [facility] [address] POC PH 7.280 L 7.35-7.45 POC PCO2 [...] Jun 12, 2024 04:01 PM Reporting Lab: [facility] [address] Performing Lab: [facility] [address] URINE COLOR YELLOW SPECIFIC GRAVITY 1.031 1.003-1.03 [...] Jun 12, 2024 03:59 PM Reporting Lab: [facility] [address] Performing Lab: [facility] [address] WBC 15.8 H 4.0-11.0 RBC 5.11 4.60-6.20 [...] Jun 23, 2024 06:07 PM Reporting Lab: [facility] [address] Performing Lab: [facility] [address] CREATININE 0.8 mg/dL 0.7-1.2 UREA NITROGEN 13 [...] Jun 23, 2024 06:07 PM Reporting Lab: [facility] [address] Performing Lab: [facility] [address] WBC 15.5 H 4.0-11.0 RBC 4.93 4.60-6.20 [...] Jun 22, 2024 05:51 PM Reporting Lab: [facility] [address] Performing Lab: [facility] [address] CREATININE 0.7 mg/dL 0.7-1.2 UREA NITROGEN 16 [...] Jun 22, 2024 05:51 PM Reporting Lab: [facility] [address] Performing Lab: [facility] [address] WBC 14.9 H 4.0-11.0 RBC 5.09 4.60-6.20 [...] Jun 22, 2024 05:51 PM Reporting Lab: [facility] [address] Performing Lab: [facility] [address] WBC 16.9 H 4.0-11.0 RBC 5.28 4.60-6.20 [...] Jun 22, 2024 05:51 PM Reporting Lab: [facility] [address] Performing Lab: [facility] [address] CREATININE 0.7 mg/dL 0.7-1.2 UREA NITROGEN 17 [...] Jun 21, 2024 05:45 PM Reporting Lab: [facility] [address] Performing Lab: [facility] [address] URINE COLOR YELLOW SPECIFIC GRAVITY 1.041 H [...] Type: BLOOD No comment entered. Ordering Provider: DLEIA MARTINEZ Report Released Date/Time: Jun 21, 2024 06:07 PM Reporting Lab: [facility] [address] Performing Lab: [facility] [address] POC CREATININE 1.1 mg/dL 0.6-1.3 Jun 21, 2024 05:30 PM [facility] POC ABG/LACTATE Specimen Type: VENOUS BLOOD No comment entered. Ordering Provider: DELIA MARTINEZ Report Released Date/Time: Jun 21, 2024 06:07 PM Reporting Lab: [facility] [address] Performing Lab: [facility] [address] POC PH 7.470 H 7.31-7.41 POC PCO2 [...] Jun 21, 2024 05:30 PM Reporting Lab: [facility] [address] Performing Lab: [facility] [address] .INR 1.2 H 0.8-1.1 .PT 13.9 s H 9.4-12.5 Jun 21, 2024 05:24 PM [facility] LIPASE Specimen Type: PLASMA No comment entered. Ordering Provider: DELIA MARTINEZ Report Released Date/Time: Jun 21, 2024 05:30 PM Reporting Lab: [facility] [address] Performing Lab: [facility] [address] LIPASE 32 U/L <60 Jun 21, 2024 05:24 PM [facility] EXTRA GOLD GEL TUBE Specimen Type: SERUM No comment entered. Ordering Provider: DELIA MARTINEZ Report Released Date/Time: Jun 21, 2024 05:41 PM Reporting Lab: [facility] [address] Performing Lab: [facility] [address] EXTRA GOLD GEL TUBE RECEIVED Jun 21, 2024 05:24 PM [facility] COMPREHENSIVE METABOLIC PANEL+MG Specimen Type: PLASMA No comment entered. Ordering Provider: DELIA MARTINEZ Report Released Date/Time: Jun 21, 2024 05:30 PM Reporting Lab: [facility] [address] Performing Lab: [facility] [address] CREATININE 0.9 mg/dL 0.7-1.2 UREA NITROGEN 29 [...] Jun 21, 2024 05:30 PM Reporting Lab: [facility] [address] Performing Lab: [facility] [address] WBC 21.3 H 4.0-11.0 RBC 5.48 4.60-6.20 [...] Jul 16, 2024 12:17 PM Yecenia LOZANO [facility] Social History: Smoking Status (Most current) and Tobacco Use (All prior to encounter date) This section includes the most current, and the historical, smoking and tobacco- related health factors from the [place] facility where the Encounter took place. Current Smoking Status This section includes the most current smoking, or tobacco-related health factor, from the [facility] where the Encounter took place. [...] 06:15 PM CHEST 1 VIEW: FLACA WEAVER [id number] -1950 M Exm Date: JUL 18, 2024@18:15 Req Phys: LEISA GOLDEN Loc: 3E07-18-2024@19:00 Img Loc: MAIN X-RAY Service: PRIMARY CARE - [place] [address] (Case [id number] COMPLETE) CHEST 1 VIEW (RAD Detailed) CPT:74347 Proc Modifiers : PORTABLE EXAM Reason for Study: SOB Clinical History: IS NOT under investigation for COVID-19 or is COVID-19 negative 73 yo with SOB Responsible provider name and phone number to notify for critical findings if other than user placing the order and pager listed below: User placing orders pager: [phone] LAST CREATININE 1.2 (07/17/24) Report Status: Verified Date Reported: JUL 18, 2024 Date Verified: JUL 18, 2024 Process Validation Engineer E-Sig:/ES/CARLOS A CUNNINGHAM DO Report: EXAMINATION: CHEST 1 VIEW Reason for Study: SOB IS NOT under investigation for COVID-19 or is COVID-19 negative 73 yo with SOB Responsible provider name and phone number to notify for critical findings if other than user placing the order and pager listed below: User placing orders pager: [phone] LAST CREATININE 1.2 (07/17/24) SOB TECHNIQUE: Single [...] Interpreting Staff: CARLOS A CUNNINGHAM DO, RADIOLOGIST (Process Validation Engineer) /CARLOS A ROWELL [facility] Jul 16, 2024 07:49 AM [facility] CT ABDOMEN/PELVIS: FLACA WEAVER [id number] -1950 M Exm Date: JUL 16, 2024@07:49 Req Phys: JATINDER CABRERA Loc: 07-17-2024@09:02 Img Loc: OUTSOURCE CT Service: Unknown (Case [id number] COMPLETE) NON [place] CT ABDOMEN/PELVIS (CT Detailed) CPT:66368 Reason for Study: outside study Clinical History: [...] Diagnostic Code: VERIFIED BY: / *ELECTRONICALLY FILED* [facility] Jul 13, 2024 09:41 AM [facility] CT ABDOMEN/PELVIS: FLACA WEAVER [id number] -1950 M Exm Date: JUL 13, 2024@09:41 Req Phys: JATINDER CABRERA Loc: 07-17-2024@09:08 Img Loc: OUTSOURCE CT Service: Unknown (Case [id number] COMPLETE) NON [place] CT ABDOMEN/PELVIS (CT Detailed) CPT:51240 Reason for Study: outside study Clinical History: [...] Diagnostic Code: VERIFIED BY: / *ELECTRONICALLY FILED* [facility] Jul 08, 2024 10:09 AM CHEST 2 VIEWS PA AND LAT: FLACA WEAVER [id number] -1950 M Exm Date: JUL 08, 2024@10:09 Req Phys: KATELYNN PERSON Pat Loc: 2KG/07-08-2024@11:49 Img Loc: MAIN X-RAY Service: [facility] [place] [address] (Case 24 COMPLETE) CHEST 2 VIEWS PA AND LAT (RAD Detailed) CPT:60884 Reason for Study: Uptrending WBC, POD 5 Clinical History: [place] IS NOT under investigation for COVID-19 or is COVID-19 negative POD 5, work up for uptrending wbc Responsible provider name and phone number to notify for critical findings if other than user placing the order and pager listed below: User placing orders pager: Katelynn Person LAST CREATININE 0.9 (07/07/24) Report Status: Verified Date Reported: JUL 08, 2024 Date Verified: JUL 08, 2024 Process Validation Engineer E-Sig: Report: CHEST 2 VIEWS PA [...] cardiopulmonary disease. READING PHYSICIAN: Sarbjit Vaughn M.D. -[id number] 07/08/2024 12:[address] [facility] [phone] (For Medical Practitioner Use Only) Attention Patients / Veterans: If you have questions or concerns about these test results, please contact your ordering provider or primary care team. Primary Interpreting Staff: RADIOLOGY,OUTSIDE SERVICE, Staff Physician / RADIOLOGY,OUTSIDE SERVICE [facility] Jul 08, 2024 10:[address] (AP) ABDOMEN/PELVIS W CONTRAST: FLACA WEAVER [id number] -1950 M Exm Date: JUL 08, 2024@10:00 Req Phys: KATELYNN PERSON Pat Loc: 2K/07-08-2024@12:07 Img Loc: CT IMAGING Service: [facility] [place] [address] (Case 22 COMPLETE) CT (AP) ABDOMEN/PELVIS W CONTRAST(CT Detailed) CPT:46963 Contrast Media : Non-ionic Iodinated Reason for [...] PLASMA .CREAT EGFR(CKD-E >90 Ref: >=60 Allergies: ([place] only) TERAZOSIN (Mar 13, 2015) Report Status: Verified Date Reported: JUL 08, 2024 Date Verified: JUL 08, 2024 Process Validation Engineer E-Sig: Report: CT (AP) ABDOMEN/PELVIS W [...] as noted above READING PHYSICIAN: Celestino Blanc -[phone] 07/08/2024 13:[address] [facility] [employer] [facility] [phone] (For Medical Practitioner Use Only) Attention Patients / Veterans: If you have questions or concerns about these test results, please contact your ordering provider or primary care team. Primary Interpreting Staff: RADIOLOGY,OUTSIDE SERVICE, Staff Physician / RADIOLOGY,OUTSIDE SERVICE [facility] Jun 22, 2024 11:49 AM ABSCESS DRAIN PLACEMENT PERITONEAL (P): FLACA WEAVER [id number] -1950 M Exm Date: JUN 22, 2024@11:49 Req Phys: ANGELA HOLDEN Loc: [facility]/06-22-2024@17:14 Img Loc: INTERVENTIONAL RADIOLOGY Service: [facility] [place] [address] (Case [id number] COMPLETE) IR PERITONEAL/RETROPERITONEAL PER(ANI Detailed) CPT:01164 Reason for Study: diverticulitis with abscess (Case 3570 COMPLETE) IR MOD SEDATION 10-22 MIN (ANI Detailed) CPT:64535 Clinical History: IS NOT under investigation for COVID-19 or is COVID-19 negative 73 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 please place abscess drain. Contact number for responsible provider who can be reached for any questions or notifications of critical findings: [phone] n/a LAST CREATININE 0.9 (06/21/24) Report Status: Verified Date Reported: JUN 22, 2024 Date Verified: JUN 22, 2024 Process Validation Engineer E-Sig:/ES/LISA PENDLETON MD Report: PROCEDURES: Placement [...] real-time CT fluoroscopy, a 5 Turkmen Yueh centesis catheter was advanced into the [...] Primary Interpreting Staff: LISA PENDLETON MD, RADIOLOGIST (Process Validation Engineer) /JRT LISA PENDLETON [facility] Jun 22, 2024 11:[address] NEEDLE PLACEMENT (P): FLACA WEAVER [id number] -1950 M Exm Date: JUN 22, 2024@11:48 Req Phys: ANGELA HOLDEN [facility] Loc: [facility]/06-22-2024@17:14 Img Loc: CT IMAGING Service: [facility] [place] [address] (Case [id number] COMPLETE) CT SCAN FOR NEEDLE PLACEMENT (CT Detailed) CPT:77578 Reason for Study: l pelvic abscess drain Clinical History: Report Status: Verified Date Reported: JUN 22, 2024 Date Verified: JUN 22, 2024 Process Validation Engineer E-Sig:/ES/LISA PENDLETON MD Report: PROCEDURES: Placement [...] Using real-time CT fluoroscopy, a 5 Turkmen fflapesis catheter was advanced into the collection in [...] Primary Interpreting Staff: LISA PENDLETON MD, RADIOLOGIST (Process Validation Engineer) /JRT LISA PENDLETON [facility] Jun 21, 2024 06:[address] (AP) ABDOMEN/PELVIS (P): FLACA WEAVER [id number] -1950 M Exm Date: JUN 21, 2024@18:09 Req Phys: DELIA MARTINEZ Loc: [facility]ENCY [facility]PT WALK-IN (Re Img Loc: CT IMAGING Service: [place] [address] (Case [id number] COMPLETE) CT (AP) ABDOMEN/PELVIS W CONTRAST(CT Detailed) CPT:94953 Contrast Media : Non-ionic Iodinated Reason for [...] PLASMA .CREAT EGFR(CKD-E >90 Ref: >=60 Allergies: ([facility]) TERAZOSIN (Mar 13, 2015) Defer to radiologist [...] 21, 2024 Date Verified: JUN 21, 2024 Process Validation Engineer E-Sig:/ALEXI/CARLOS A CUNNINGHAM DO Report: EXAMINATION: CT [...] Interpreting Staff: CARLOS A CUNNINGHAM DO, RADIOLOGIST (Process Validation Engineer) /CARLOS A ROWELL [facility] Pathology [...] PORT: Reporting Lab: [facility] [CLIA# [id number]] [place] [address] Accession [UID]: [id number] [[id number]] Received: Jul 16, 2024@14:41 Collection sample: BLOOD Collection date: Jul 16, 2024 14:07 Provider: LEISA GOLDEN Comment on specimen: R AC, RECEIVED 2 BLOOD CULTURE BOTTLES Test(s) ordered: CULTURE & SUSCEPTIBILITY...... completed: Jul 22, 2024 * BACTERIOLOGY FINAL REPORT => Jul 22, 2024 13:39 TECH CODE: [id number] CULTURE RESULTS: NO GROWTH 5 DAYS Bacteriology Remark(s): THIS REPORT IS FINAL =--=--=--=--=--=--=--=--=--= --=--=--=--=--=--=--=--=--=- -=--=--=--=--=--=--=-- Performing Laboratory: Bacteriology Report Performed By: [facility] [CLIA# [id number]] [place] [address] [facility] Jul 16, 2024 01:54 PM LR MICROBIOLOGY RE PORT: Reporting Lab: [facility] [CLIA# [id number]] [place] [address] Accession [UID]: [id number] [[id number]] Received: Jul 16, 2024@14:41 Collection sample: BLOOD Collection date: Jul 16, 2024 13:54 Provider: LEISA GOLDEN Comment on specimen: L AC, RECEIVED 2 BLOOD CULTURE BOTTLES Test(s) ordered: CULTURE & SUSCEPTIBILITY...... completed: Jul 22, 2024 * BACTERIOLOGY FINAL REPORT => Jul 22, 2024 13:39 TECH CODE: [id number] CULTURE RESULTS: NO GROWTH 5 DAYS Bacteriology Remark(s): THIS REPORT IS FINAL =--=--=--=--=--=--=--=--=--= --=--=--=--=--=--=--=--=--=- -=--=--=--=--=--=--=-- Performing Laboratory: Bacteriology Report Performed By: [facility] [CLIA# [id number]] [place] [address] [facility] Jul 03, 2024 05:59 AM LR SURGICAL PATHOL OGY REPORT: LOCAL TITLE: LR SURGICAL PATHOLOGY REPORT STANDARD TITLE: PATHOLOGY REPORT DATE OF NOTE: JUL 06, 2024@10:40:48 ENTRY DATE: JUL 06, 2024@10:40:48 AUTHOR: EDUARDO PALOMARES EXP COSIGNER: URGENCY: STATUS: COMPLETED $APHDR Reporting Lab: [facility] [CLIA# [id number]] [place] [address] - - - - - - - [...] - - PATHOLOGY REPORT Accession No. [id number] - - - - - - - [...] - PATHOLOGY REPORT Accession No. [id number] - - - - - - - [...] Second circumferential surgical margin, en face; E-F: Sketcher diverticula; G: Sketcher section of mesentery; H: Random patient accounting [...] One colonic tissue ring, bisected transversely. [facility]: Microscopic examination performed. DIAGNOSIS: 1. Colon, sigmoid, sigmoidectomy-- - Diverticulosis with perforation and focal abscess formation 2. 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 FORM 515 ID:[id number] SEX:M :1950 AGE: 73 LOC:80482 ADM:Jun DX:DIVERTICULITIS PCP: Jatinder Cabrera /alexi/ EDUARDO PALOMARES MD STAFF PATHOLOGIST Signed: 07/06/2024 10:40 EDUARDO PALOMARES [facility] Jun 22, 2024 01:15 PM LR MICROBIOLOGY RE PORT: Reporting Lab: [facility] [CLIA# [id number]] [place] [address] Accession [UID]: [id number] [[id number]] Received: Jun 22, 2024@13:38 Collection sample: FLUID Collection date: Jun 22, 2024 13:15 Provider: ANGELA HOLDEN Comment on specimen: LLQ ABSCESS, RECEIVED IN ANAEROBIC TRANSPORT VIAL Test(s) ordered: GRAM STAIN.................... completed: Jun 22, 2024 15:03 CULTURE & SUSCEPTIBILITY...... completed: Jun 25, 2024 * BACTERIOLOGY FINAL REPORT => Jun 25, 2024 10:56 TECH CODE: [id number] GRAM STAIN: DIRECT SMEAR of specimen before [...] Report Performed By: [facility] [CLIA# [id number]] [place] [address] [facility] Jun 22, 2024 01:15 PM LR MICROBIOLOGY RE PORT: Reporting Lab: [facility] [CLIA# [id number]] [place] [id number] Accession [UID]: [id number] [[id number]] Received: Jun 22, 2024@13:38 Collection sample: FLUID Collection date: Jun 22, 2024 13:15 Provider: ANGELA HOLDEN Comment on specimen: LLQ ABSCESS, RECEIVED IN ANAEROBIC TRANSPORT VIAL Test(s) ordered: ANAEROBIC CULTURE............. completed: Jun 28, 2024 * BACTERIOLOGY FINAL REPORT => Jun 28, 2024 10:08 TECH CODE: [id number] CULTURE RESULTS: HEAVY GROWTH MIXED ANAEROBES Comment: [...] Report Performed By: [facility] [CLIA# [id number]] [place] [address] [facility] Jun 21, 2024 06:12 PM LR MICROBIOLOGY RE PORT: Reporting Lab: [facility] [IA# [id number]] [place] [address] Accession [UID]: [id number] [[id number]] Received: Jun 21, 2024@18:12 Collection sample: BLOOD [...] Report Performed By: [facility] [CLIA# [id number]] [place] [address] [facility] Jun 21, 2024 06:11 PM LR MICROBIOLOGY RE PORT: Reporting Lab: [facility] [CLIA# [id number]] [place] [address] Accession [UID]: [id number] [[id number]] Received: Jun 21, 2024@18:11 Collection sample: BLOOD [...] Report Performed By: [facility] [CLIA# [id number]] [place] [address] [facility]
--- OUTSIDE RECORDS SUMMARY | 2024-08-01 07:56 | XMS_ITS | Encounter Summary ---
Author Name [facility] Organization [facility] Address [address] [place] [address] Care Team Providers Care Foreclosure Field Inspector Name Role Phone JATINDER CABRERA Primary [...] PART A Sep 29, 2016 PART A [id number] [phone] JUDY WEAVER PATIENT Selected Encounter This section includes the information on record at [place] for the Encounter. 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 Date/Time Primary/Secondary Diagnosis Diagnosis Name Provider Source Jul 19, 2024 01:08 AM PRIMARY Dvrtclos of intest, part unsp, w/o perf or abscess w/o bleed [facility] ARREDONDO [facility] Plan of Treatment: Future Appointments (+ [...] stry Order URINALYSIS URINE WC ONCE [facility] Jun 12, 2024 12:00 AM Laboratory - Chemi stry Order BNP PLASMA SP ONCE [facility] Jun 21, 2024 05:45 PM Laboratory - Blood Bank Order TYPE & SCREEN - LAB BLOOD [facility] Jul 03, 2024 12:00 AM Laboratory - Blood Bank Order TYPE & SCREEN - LAB BLOOD [facility] Jul 16, 2024 12:00 AM Laboratory - Chemi stry Order CBC BLOOD SP ONCE [facility] Jul 17, 2024 12:00 AM Laboratory - Chemi stry Order BASIC METABOLIC PANEL+MG PLASMA SP ONCE [facility] Lab Results: +/- [...] Comment Jul 21, 2024 10:[address] [facility] BASIC METABOLIC PANEL+MG Specimen Type: PLASMA No comment entered. Ordering Provider: SARAI GOLDEN Report Released Date/Time: Jul 20, 2024 06:50 PM Reporting Lab: [facility] [address] Performing Lab: [facility] [address] CREATININE 0.8 mg/dL 0.7-1.2 UREA NITROGEN 31 mg/dL H 8-26 GLUCOSE 120 mg/dL H 70-100 SODIUM 125 mmol/L L 136-145 POTASSIUM 4.4 mmol/L 3.5-5.1 CHLORIDE 100 mmol/L 98-107 CO2 17 mmol/L L 22-29 CALCIUM 9.6 mg/dL 8.4-10.2 MAGNESIUM 1.9 mg/dL 1.6-2.6 ANION GAP 8 mmol/L 5-15 .CREAT EGFR(CKD-EPI) >90 >60 Jul 21, 2024 10:[address] [facility] CBC Specimen Type: BLOOD No comment entered. Ordering Provider: SARAI GOLDEN Report Released Date/Time: Jul 20, 2024 06:50 PM Reporting Lab: [facility] [address] Performing Lab: [facility] [address] WBC 16.0 H 4.0-11.0 RBC 5.16 4.60-6.20 HGB 15.8 g/dL 13.5-17.9 HCT 45.5 41.0-54.0 MCV 88.2 fL 80.0-100.0 MCH 30.6 pg 27.0-33.0 MCHC 34.7 g/dL 32.0-37.5 PLT 428 H 150-400 MPV 10.8 fL 9.1-13.0 RDW 13.6 11.5-14.5 Jul 20, 2024 01:[address] [facility] SODIUM,URINE RANDOM Specimen Type: URINE No comment entered. Ordering Provider: SARAI GOLDEN Report Released Date/Time: Jul 20, 2024 08:22 AM Reporting Lab: [facility] [address] Performing Lab: [facility] [address] SODIUM,URINE RANDOM <20 mmol/L Jul 20, 2024 01:[address] [facility] OSMOLALITY,URINE Specimen Type: URINE No comment entered. Ordering Provider: SARAI GOLDEN Report Released Date/Time: Jul 20, 2024 08:22 AM Reporting Lab: [facility] [address] Performing Lab: [facility] [address] OSMOLALITY,URIN E 648 mosm/kg 500-800 Jul 20, 2024 06:[address] [facility] BASIC METABOLIC PANEL+MG Specimen Type: PLASMA No comment entered. Ordering Provider: SARAI GOLDEN Report Released Date/Time: Jul 19, 2024 06:13 PM Reporting Lab: [facility] [address] Performing Lab: [facility] [address] CREATININE 0.8 mg/dL 0.7-1.2 UREA NITROGEN 36 mg/dL H 8-26 GLUCOSE 111 mg/dL H 70-100 SODIUM 121 mmol/L L 136-145 POTASSIUM 4.1 mmol/L 3.5-5.1 CHLORIDE 99 mmol/L 98-107 CO2 14 mmol/L L 22-29 CALCIUM 9.5 mg/dL 8.4-10.2 MAGNESIUM 1.8 mg/dL 1.6-2.6 ANION GAP 8 mmol/L 5-15 .CREAT EGFR(CKD-EPI) >90 >60 Jul 20, 2024 06:[address] [facility] CBC & DIFF Specimen Type: BLOOD Comment: Automated Differential Performed Ordering Provider: SARAI GOLDEN Report Released Date/Time: Jul 19, 2024 06:13 PM Reporting Lab: [facility] [address] Performing Lab: [facility] [address] WBC 16.6 H 4.0-11.0 RBC 4.96 4.60-6.20 [...] 0.0-0.1 Jul 20, 2024 05:[address] [facility] OSMOLALITY,SERUM Specimen Type: SERUM No comment entered. Ordering Provider: SARAI GOLDEN Report Released Date/Time: Jul 20, 2024 09:47 AM Reporting Lab: [facility] [address] Performing Lab: [facility] [address] OSMOLALITY,SERU M 266 mosm/kg L 276-305 Jul 19, 2024 08:[address] [facility] BASIC METABOLIC PANEL+MG Specimen Type: PLASMA No comment entered. Ordering Provider: SARAI GOLDEN Report Released Date/Time: Jul 18, 2024 10:24 PM Reporting Lab: [facility] [address] Performing Lab: [facility] [address] CREATININE 1.0 mg/dL 0.7-1.2 UREA NITROGEN 40 mg/dL H 8-26 GLUCOSE 104 mg/dL H 70-100 SODIUM 129 mmol/L L 136-145 POTASSIUM 3.3 mmol/L L 3.5-5.1 CHLORIDE 104 mmol/L 98-107 CO2 16 mmol/L L 22-29 CALCIUM 8.0 mg/dL L 8.4-10.2 MAGNESIUM 1.7 mg/dL 1.6-2.6 ANION GAP 9 mmol/L 5-15 .CREAT EGFR(CKD-EPI) 80 >60 Jul 19, 2024 08:[address] [facility] CBC Specimen Type: BLOOD No comment entered. Ordering Provider: SARAI GOLDEN Report Released Date/Time: Jul 18, 2024 10:24 PM Reporting Lab: [facility] [address] Performing Lab: [facility] [address] WBC 17.3 H 4.0-11.0 RBC 4.83 4.60-6.20 HGB 14.8 g/dL 13.5-17.9 HCT 42.6 41.0-54.0 MCV 88.2 fL 80.0-100.0 MCH 30.6 pg 27.0-33.0 MCHC 34.7 g/dL 32.0-37.5 PLT 456 H 150-400 MPV 10.8 fL 9.1-13.0 RDW 13.7 11.5-14.5 Jul 17, 2024 06:[address] [facility] PHOSPHORUS Specimen Type: PLASMA No comment entered. Ordering Provider: SARAI GOLDEN Report Released Date/Time: Jul 17, 2024 01:54 PM Reporting Lab: [facility] [phone] Performing Lab: [facility] [address] PHOSPHORUS 2.9 mg/dL 2.3-4.3 Jul 17, 2024 06:[address] [facility] BASIC METABOLIC PANEL+MG Specimen Type: PLASMA No comment entered. Ordering Provider: SARAI GOLDEN Report Released Date/Time: Jul 17, 2024 01:54 PM Reporting Lab: [facility] [address] Performing Lab: [facility] [address] CREATININE 1.2 mg/dL 0.7-1.2 UREA NITROGEN 62 mg/dL H 8-26 GLUCOSE 116 mg/dL H 70-100 SODIUM 128 mmol/L L 136-145 POTASSIUM 3.8 mmol/L 3.5-5.1 CHLORIDE 100 mmol/L 98-107 CO2 16 mmol/L L 22-29 CALCIUM 9.3 mg/dL 8.4-10.2 MAGNESIUM 2.1 mg/dL 1.6-2.6 ANION GAP 12 mmol/L 5-15 .CREAT EGFR(CKD-EPI) 64 >60 Jul 17, 2024 07:[address] [facility] CBC & DIFF Specimen Type: BLOOD Comment: Manual Differential Performed Ordering Provider: SARAI GOLDEN Report Released Date/Time: Jul 16, 2024 04:52 PM Reporting Lab: [facility] [address] Performing Lab: [facility] [address] WBC 18.9 H 4.0-11.0 RBC 5.55 4.60-6.20 [...] PRESENT Jul 17, 2024 07:[address] [facility] ALBUMIN Specimen Type: PLASMA No comment entered. Ordering Provider: SARAI GOLDEN Report Released Date/Time: Jul 16, 2024 12:12 PM Reporting Lab: [facility] [address] Performing Lab: [facility] [address] ALBUMIN 4.3 g/dL 3.5-5.0 Jul 17, 2024 07:[address] [facility] COMPREHENSIVE METABOLIC PANEL+MG Specimen Type: PLASMA No comment entered. Ordering Provider: SARAI GOLDEN Report Released Date/Time: Jul 16, 2024 04:52 PM Reporting Lab: [facility] [address] Performing Lab: [facility] [address] CREATININE 1.3 mg/dL H 0.7-1.2 UREA NITROGEN [...] >60 Jul 16, 2024 07:[address] [facility] LACTIC ACID Specimen Type: PLASMA No comment entered. Ordering Provider: SARAI GOLDEN Report Released Date/Time: Jul 16, 2024 12:12 PM Reporting Lab: [facility] [address] Performing Lab: [facility] [address] LACTIC ACID 0.9 mmol/L 0.5-2.2 Jul 16, 2024 02:[address] [facility] MRSA SURVL NARES DNA Specimen Type: NARES No comment entered. Ordering Provider: SARAI GOLDEN Report Released Date/Time: Jul 16, 2024 12:12 PM Reporting Lab: [facility] [address] Performing Lab: [facility] [address] MRSA SURVL NARES DNA NEGATIVE Negative Jul 16, 2024 02:[address] [facility] LACTIC ACID Specimen Type: PLASMA No comment entered. Ordering Provider: SARAI GOLDEN Report Released Date/Time: Jul 16, 2024 12:12 PM Reporting Lab: [facility] [address] Performing Lab: [facility] [address] LACTIC ACID 0.9 mmol/L 0.5-2.2 Jul 16, 2024 02:[address] [facility] COMPREHENSIVE METABOLIC PANEL+MG Specimen Type: PLASMA No comment entered. Ordering Provider: SARAI GOLDEN Report Released Date/Time: Jul 16, 2024 12:12 PM Reporting Lab: [facility] [address] Performing Lab: [facility] [address] CREATININE 2.0 mg/dL H 0.7-1.2 UREA NITROGEN [...] >60 Jul 16, 2024 02:[address] [facility] CBC & DIFF Specimen Type: BLOOD Comment: Manual Differential Performed Ordering Provider: SARAI GOLDEN Report Released Date/Time: Jul 16, 2024 12:12 PM Reporting Lab: [facility] [address] Performing Lab: [facility] [address] WBC 19.7 H 4.0-11.0 RBC 5.39 4.60-6.20 [...] PRESENT Jul 10, 2024 07:[address] [facility] PHOSPHORUS Specimen Type: PLASMA No comment entered. Ordering Provider: JUANCARLOS ECHOLS Report Released Date/Time: Jul 09, 2024 12:23 PM Reporting Lab: [facility] [address] Performing Lab: [facility] [address] PHOSPHORUS 3.0 mg/dL 2.3-4.3 Jul 10, 2024 07:[address] [facility] BASIC METABOLIC PANEL+MG Specimen Type: PLASMA No comment entered. Ordering Provider: JUANCARLOS ECHOLS S Report Released Date/Time: Jul 09, 2024 12:23 PM Reporting Lab: [facility] [address] Performing Lab: [facility] [address] CREATININE 0.7 mg/dL 0.7-1.2 UREA NITROGEN 27 mg/dL H 8-26 GLUCOSE 104 mg/dL H 70-100 SODIUM 133 mmol/L L 136-145 POTASSIUM 4.3 mmol/L 3.5-5.1 CHLORIDE 102 mmol/L 98-107 CO2 19 mmol/L L 22-29 CALCIUM 10.1 mg/dL 8.4-10.2 MAGNESIUM 1.9 mg/dL 1.6-2.6 ANION GAP 12 mmol/L 5-15 .CREAT EGFR(CKD-EPI) >90 >60 Jul 10, 2024 07:[address] [facility] CBC Specimen Type: BLOOD No comment entered. Ordering Provider: JUANCARLOS ECHOLS S Report Released Date/Time: Jul 09, 2024 12:23 PM Reporting Lab: [facility] [address] Performing Lab: [facility] [address] WBC 18.8 H 4.0-11.0 RBC 5.08 4.60-6.20 HGB 15.9 g/dL 13.5-17.9 HCT 46.8 41.0-54.0 MCV 92.1 fL 80.0-100.0 MCH 31.3 pg 27.0-33.0 MCHC 34.0 g/dL 32.0-37.5 PLT 479 H 150-400 MPV 10.2 fL 9.1-13.0 RDW 13.7 11.5-14.5 Jul 09, 2024 07:[address] [facility] CBC Specimen Type: BLOOD No comment entered. Ordering Provider: QUYNH WEISS Report Released Date/Time: Jul 08, 2024 06:18 PM Reporting Lab: [facility] [address] Performing Lab: [facility] [address] WBC 15.3 H 4.0-11.0 RBC 4.91 4.60-6.20 HGB 15.1 g/dL 13.5-17.9 HCT 45.7 41.0-54.0 MCV 93.1 fL 80.0-100.0 MCH 30.8 pg 27.0-33.0 MCHC 33.0 g/dL 32.0-37.5 PLT 443 H 150-400 MPV 10.0 fL 9.1-13.0 RDW 13.5 11.5-14.5 Jul 08, 2024 10:[address] [facility] URINALYSIS Specimen Type: URINE No comment entered. Ordering Provider: KATELYNN PERSON Report Released Date/Time: Jul 08, 2024 08:41 AM Reporting Lab: [facility] [address] Performing Lab: [facility] [address] URINE COLOR YELLOW SPECIFIC GRAVITY >1.050 H [...] NEGATIVE Jul 08, 2024 09:[address] [facility] CBC Specimen Type: BLOOD Comment: Specimen received in Lab at: [id number] Ordering Provider: JUANCARLOS ECHOLS Report Released Date/Time: Jul 07, 2024 04:49 PM Reporting Lab: [facility] [address] Performing Lab: [facility] [address] WBC 17.5 H 4.0-11.0 RBC 4.88 4.60-6.20 HGB 14.9 g/dL 13.5-17.9 HCT 45.7 41.0-54.0 MCV 93.6 fL 80.0-100.0 MCH 30.5 pg 27.0-33.0 MCHC 32.6 g/dL 32.0-37.5 PLT 472 H 150-400 MPV 10.2 fL 9.1-13.0 RDW 13.7 11.5-14.5 Jul 08, 2024 09:[address] [facility] PHOSPHORUS Specimen Type: PLASMA Comment: Specimen received in Lab at: [id number] Ordering Provider: JUANCARLOS ECHOLS Report Released Date/Time: Jul 07, 2024 04:49 PM Reporting Lab: [facility] [address] Performing Lab: [facility] [address] PHOSPHORUS 2.6 mg/dL 2.3-4.3 Jul 08, 2024 09:[address] [facility] BASIC METABOLIC PANEL+MG Specimen Type: PLASMA Comment: Specimen received in Lab at: [id number] Ordering Provider: JUANCARLOS ECHOLS Report Released Date/Time: Jul 07, 2024 04:49 PM Reporting Lab: [facility] [address] Performing Lab: [facility] [address] CREATININE 0.9 mg/dL 0.7-1.2 UREA NITROGEN 26 mg/dL 8-26 GLUCOSE 128 mg/dL H 70-100 SODIUM 134 mmol/L L 136-145 POTASSIUM 3.4 mmol/L L 3.5-5.1 CHLORIDE 100 mmol/L 98-107 CO2 24 mmol/L 22-29 CALCIUM 9.8 mg/dL 8.4-10.2 MAGNESIUM 1.8 mg/dL 1.6-2.6 ANION GAP 10 mmol/L 5-15 .CREAT EGFR(CKD-EPI) >90 >60 Jul 07, 2024 02:[address] [facility] C DIFF PANEL Specimen Type: FECES No comment entered. Ordering Provider: JEVON ZAZUETA Report Released Date/Time: Jul 07, 2024 12:26 PM Reporting Lab: [facility] [address] Performing Lab: [facility] [address] C DIFF TOX B GENE PCR NEGATIVE Negative Jul 07, 2024 07:[address] [facility] PHOSPHORUS Specimen Type: PLASMA No comment entered. Ordering Provider: JEVON ZAZUETA Report Released Date/Time: Jul 06, 2024 03:44 PM Reporting Lab: [facility] [address] Performing Lab: [facility] [address] PHOSPHORUS 3.1 mg/dL 2.3-4.3 Jul 07, 2024 07:[address] [facility] BASIC METABOLIC PANEL+MG Specimen Type: PLASMA No comment entered. Ordering Provider: JEVON ZAZUETA Report Released Date/Time: Jul 06, 2024 03:44 PM Reporting Lab: [facility] [address] Performing Lab: [facility] [address] CREATININE 0.9 mg/dL 0.7-1.2 UREA NITROGEN 20 mg/dL 8-26 GLUCOSE 157 mg/dL H 70-100 SODIUM 136 mmol/L 136-145 POTASSIUM 3.7 mmol/L 3.5-5.1 CHLORIDE 102 mmol/L 98-107 CO2 21 mmol/L L 22-29 CALCIUM 9.8 mg/dL 8.4-10.2 MAGNESIUM 1.9 mg/dL 1.6-2.6 ANION GAP 13 mmol/L 5-15 .CREAT EGFR(CKD-EPI) >90 >60 Jul 07, 2024 07:[address] [facility] CBC Specimen Type: BLOOD No comment entered. Ordering Provider: JEVON ZAZUETA Report Released Date/Time: Jul 06, 2024 03:44 PM Reporting Lab: [facility] [address] Performing Lab: [facility] [address] WBC 21.2 H 4.0-11.0 RBC 5.09 4.60-6.20 HGB 15.9 g/dL 13.5-17.9 HCT 48.3 41.0-54.0 MCV 94.9 fL 80.0-100.0 MCH 31.2 pg 27.0-33.0 MCHC 32.9 g/dL 32.0-37.5 PLT 500 H 150-400 MPV 10.3 fL 9.1-13.0 RDW 13.6 11.5-14.5 Jul 06, 2024 07:[address] [facility] CBC Specimen Type: BLOOD No comment entered. Ordering Provider: JEVON ZAZUETA Report Released Date/Time: Jul 05, 2024 01:22 PM Reporting Lab: [facility] [address] Performing Lab: [facility] [address] WBC 18.0 H 4.0-11.0 RBC 4.83 4.60-6.20 HGB 14.6 g/dL 13.5-17.9 HCT 45.5 41.0-54.0 MCV 94.2 fL 80.0-100.0 MCH 30.2 pg 27.0-33.0 MCHC 32.1 g/dL 32.0-37.5 PLT 368 150-400 MPV 10.4 fL 9.1-13.0 RDW 13.6 11.5-14.5 Jul 06, 2024 07:[address] [facility] PHOSPHORUS Specimen Type: PLASMA No comment entered. Ordering Provider: JEVON ZAZUETA Report Released Date/Time: Jul 05, 2024 01:22 PM Reporting Lab: [facility] [address] Performing Lab: [facility] [address] PHOSPHORUS 3.6 mg/dL 2.3-4.3 Jul 06, 2024 07:[address] [facility] BASIC METABOLIC PANEL+MG Specimen Type: PLASMA No comment entered. Ordering Provider: JEVON ZAZUETA Report Released Date/Time: Jul 05, 2024 01:22 PM Reporting Lab: [facility] [address] Performing Lab: [facility] [address] CREATININE 0.7 mg/dL 0.7-1.2 UREA NITROGEN 12 mg/dL 8-26 GLUCOSE 108 mg/dL H 70-100 SODIUM 138 mmol/L 136-145 POTASSIUM 3.4 mmol/L L 3.5-5.1 CHLORIDE 104 mmol/L 98-107 CO2 20 mmol/L L 22-29 CALCIUM 9.3 mg/dL 8.4-10.2 MAGNESIUM 1.9 mg/dL 1.6-2.6 ANION GAP 14 mmol/L 5-15 .CREAT EGFR(CKD-EPI) >90 >60 Jul 05, 2024 07:[address] [facility] MAGNESIUM Specimen Type: PLASMA No comment entered. Ordering Provider: JUANCARLOS ECHOLS Report Released Date/Time: Jul 04, 2024 09:39 AM Reporting Lab: [facility] [address] Performing Lab: [facility] [address] MAGNESIUM 2.0 mg/dL 1.6-2.6 Jul 05, 2024 07:[address] [facility] PHOSPHORUS Specimen Type: PLASMA No comment entered. Ordering Provider: JUANCARLOS ECHOLS S Report Released Date/Time: Jul 04, 2024 09:39 AM Reporting Lab: [facility] [address] Performing Lab: [facility] [address] PHOSPHORUS 2.0 mg/dL L 2.3-4.3 Jul 05, 2024 07:[address] [facility] BASIC METABOLIC PANEL+MG Specimen Type: PLASMA No comment entered. Ordering Provider: JUANCARLOS ECHOLS S Report Released Date/Time: Jul 04, 2024 09:39 AM Reporting Lab: [facility] [address] Performing Lab: [facility] [address] CREATININE 0.7 mg/dL 0.7-1.2 UREA NITROGEN 12 mg/dL 8-26 GLUCOSE 84 mg/dL 70-100 SODIUM 135 mmol/L L 136-145 POTASSIUM 3.8 mmol/L 3.5-5.1 CHLORIDE 104 mmol/L 98-107 CO2 24 mmol/L 22-29 CALCIUM 9.3 mg/dL 8.4-10.2 MAGNESIUM 2.0 mg/dL 1.6-2.6 ANION GAP 7 mmol/L 5-15 .CREAT EGFR(CKD-EPI) >90 >60 Jul 05, 2024 07:[address] [facility] CBC Specimen Type: BLOOD No comment entered. Ordering Provider: JUANCARLOS ECHOLS S Report Released Date/Time: Jul 04, 2024 09:39 AM Reporting Lab: [facility] [address] Performing Lab: [facility] [address] WBC 18.3 H 4.0-11.0 RBC 4.49 L 4.60-6.20 HGB 14.1 g/dL 13.5-17.9 HCT 43.4 41.0-54.0 MCV 96.7 fL 80.0-100.0 MCH 31.4 pg 27.0-33.0 MCHC 32.5 g/dL 32.0-37.5 PLT 317 150-400 MPV 10.0 fL 9.1-13.0 RDW 13.9 11.5-14.5 Jul 04, 2024 07:[address] [facility] BASIC METABOLIC PANEL+MG Specimen Type: PLASMA No comment entered. Ordering Provider: GABINO CAMERON Report Released Date/Time: Jul 03, 2024 06:31 PM Reporting Lab: [facility] [address] Performing Lab: [facility] [address] CREATININE 0.7 mg/dL 0.7-1.2 UREA NITROGEN 16 mg/dL 8-26 GLUCOSE 129 mg/dL H 70-100 SODIUM 137 mmol/L 136-145 POTASSIUM 3.7 mmol/L 3.5-5.1 CHLORIDE 107 mmol/L 98-107 CO2 22 mmol/L 22-29 CALCIUM 9.0 mg/dL 8.4-10.2 MAGNESIUM 1.9 mg/dL 1.6-2.6 ANION GAP 8 mmol/L 5-15 .CREAT EGFR(CKD-EPI) >90 >60 Jul 04, 2024 07:[address] [facility] PHOSPHORUS Specimen Type: PLASMA No comment entered. Ordering Provider: GABINO CAMERON Report Released Date/Time: Jul 03, 2024 06:31 PM Reporting Lab: [facility] [address] Performing Lab: [facility] [address] PHOSPHORUS 2.8 mg/dL 2.3-4.3 Jul 04, 2024 07:[address] [facility] CBC Specimen Type: BLOOD No comment entered. Ordering Provider: GABINO CAMERON Report Released Date/Time: Jul 03, 2024 06:31 PM Reporting Lab: [facility] [address] Performing Lab: [facility] [address] WBC 20.6 H 4.0-11.0 RBC 4.63 4.60-6.20 HGB 14.2 g/dL 13.5-17.9 HCT 43.4 41.0-54.0 MCV 93.7 fL 80.0-100.0 MCH 30.7 pg 27.0-33.0 MCHC 32.7 g/dL 32.0-37.5 PLT 329 150-400 MPV 10.4 fL 9.1-13.0 RDW 13.8 11.5-14.5 Jul 04, 2024 07:[address] [facility] CBC & DIFF Specimen Type: BLOOD Comment: Manual Differential Performed Ordering Provider: GABINO CAMERON Report Released Date/Time: Jul 03, 2024 06:31 PM Reporting Lab: [facility] [address] Performing Lab: [facility] [address] WBC 20.6 H 4.0-11.0 RBC 4.63 4.60-6.20 [...] PRESENT Jul 04, 2024 07:[address] [facility] BNP Specimen Type: PLASMA No comment entered. Ordering Provider: GABINO CAMERON Report Released Date/Time: Jul 03, 2024 06:31 PM Reporting Lab: [facility] [address] Performing Lab: [facility] [address] BNP 292 pg/mL H <99 Jul 03, 2024 10:[address] [facility] FINGERSTICK GLUCOSE Specimen Type: BLOOD Comment: Save Result Nurse Notified Ordering Provider: KATELYNN PERSON Report Released Date/Time: Jul 03, 2024 10:50 PM Reporting Lab: [facility] [address] Performing Lab: [facility] [address] FINGERSTICK GLUCOSE 126 mg/dL H 70-100 Jul 03, 2024 05:[address] [facility] FINGERSTICK GLUCOSE Specimen Type: BLOOD Comment: Save Result Nurse Notified Ordering Provider: KATELYNN PERSON Report Released Date/Time: Jul 03, 2024 05:46 PM Reporting Lab: [facility] [phone] Performing Lab: [facility] [address] FINGERSTICK GLUCOSE 141 mg/dL H 70-100 Jul 03, 2024 02:[address] [facility] POC ABG/ELECTROLYTES Specimen Type: ARTERIAL BLOOD Comment: FIO2 = 97% Patient Temp: 36.0 C Sample Type = ARTERIAL Ordering Provider: MAZIN ARREDONDO Report Released Date/Time: Jul 03, 2024 01:48 PM Reporting Lab: [facility] [address] Performing Lab: [facility] [address] POC PH 7.387 7.35-7.45 POC PCO2 34.4 [...] 80.0-105.0 Jul 03, 2024 01:[address] [facility] POC ABG/ELECTROLYTES Specimen Type: ARTERIAL BLOOD Comment: FIO2 = 53% Patient Temp: 36.2 C Sample Type = ARTERIAL Ordering Provider: MAZIN ARREDONDO Report Released Date/Time: Jul 03, 2024 01:48 PM Reporting Lab: [facility] [phone] Performing Lab: [facility] [address] POC PH 7.280 L 7.35-7.45 POC PCO2 [...] 80.0-105.0 Jul 03, 2024 06:[address] [facility] URINALYSIS Specimen Type: URINE No comment entered. Ordering Provider: MARYBETH POWELL Report Released Date/Time: Jun 12, 2024 04:01 PM Reporting Lab: [facility] [address] Performing Lab: [facility] [address] URINE COLOR YELLOW SPECIFIC GRAVITY 1.031 1.003-1.03 [...] NEGATIVE Jul 03, 2024 06:[address] [facility] CBC Specimen Type: BLOOD No comment entered. Ordering Provider: MARYBETH POWELL Report Released Date/Time: Jun 12, 2024 03:59 PM Reporting Lab: [facility] [phone] Performing Lab: [facility] [address] WBC 15.8 H 4.0-11.0 RBC 5.11 4.60-6.20 HGB 16.1 g/dL 13.5-17.9 HCT 49.1 41.0-54.0 MCV 96.1 fL 80.0-100.0 MCH 31.5 pg 27.0-33.0 MCHC 32.8 g/dL 32.0-37.5 PLT 357 150-400 MPV 9.8 fL 9.1-13.0 RDW 13.7 11.5-14.5 Jun 24, 2024 09:[address] [facility] BASIC METABOLIC PANEL+MG Specimen Type: PLASMA Comment: Specimen received in Lab at: [id number] Ordering Provider: JEVON ZAZUETA Report Released Date/Time: Jun 23, 2024 06:07 PM Reporting Lab: [facility] [phone] Performing Lab: [facility] [address] CREATININE 0.8 mg/dL 0.7-1.2 UREA NITROGEN 13 mg/dL 8-26 GLUCOSE 135 mg/dL H 70-100 SODIUM 135 mmol/L L 136-145 POTASSIUM 3.6 mmol/L 3.5-5.1 CHLORIDE 103 mmol/L 98-107 CO2 24 mmol/L 22-29 CALCIUM 9.2 mg/dL 8.4-10.2 MAGNESIUM 1.9 mg/dL 1.6-2.6 ANION GAP 8 mmol/L 5-15 .CREAT EGFR(CKD-EPI) >90 >60 Jun 24, 2024 09:[address] [facility] CBC Specimen Type: BLOOD Comment: Specimen received in Lab at: [id number] Ordering Provider: JEVON ZAZUETA Report Released Date/Time: Jun 23, 2024 06:07 PM Reporting Lab: [facility] [phone] Performing Lab: [facility] [address] WBC 15.5 H 4.0-11.0 RBC 4.93 4.60-6.20 HGB 15.2 g/dL 13.5-17.9 HCT 46.5 41.0-54.0 MCV 94.3 fL 80.0-100.0 MCH 30.8 pg 27.0-33.0 MCHC 32.7 g/dL 32.0-37.5 PLT 223 150-400 MPV 11.4 fL 9.1-13.0 RDW 13.9 11.5-14.5 Jun 23, 2024 07:[address] [facility] COMPREHENSIVE METABOLIC PANEL+MG Specimen Type: PLASMA No comment entered. Ordering Provider: JEVON ZAZUETA Report Released Date/Time: Jun 22, 2024 05:51 PM Reporting Lab: [facility] [phone] Performing Lab: [facility] [address] CREATININE 0.7 mg/dL 0.7-1.2 UREA NITROGEN 16 [...] >60 Jun 23, 2024 07:[address] [facility] CBC & DIFF Specimen Type: BLOOD Comment: Automated Differential Performed Ordering Provider: JEVON ZAZUETA Report Released Date/Time: Jun 22, 2024 05:51 PM Reporting Lab: [facility] [phone] Performing Lab: [facility] [address] WBC 14.9 H 4.0-11.0 RBC 5.09 4.60-6.20 [...] 0.0-0.1 Jun 22, 2024 06:[address] [facility] CBC Specimen Type: BLOOD No comment entered. Ordering Provider: JEVON ZAZUETA Report Released Date/Time: Jun 22, 2024 05:51 PM Reporting Lab: [facility] [phone] Performing Lab: [facility] [address] WBC 16.9 H 4.0-11.0 RBC 5.28 4.60-6.20 HGB 16.9 g/dL 13.5-17.9 HCT 50.4 41.0-54.0 MCV 95.5 fL 80.0-100.0 MCH 32.0 pg 27.0-33.0 MCHC 33.5 g/dL 32.0-37.5 PLT 223 150-400 MPV 10.9 fL 9.1-13.0 RDW 14.0 11.5-14.5 Jun 22, 2024 06:[address] [facility] COMPREHENSIVE METABOLIC PANEL+MG Specimen Type: PLASMA No comment entered. Ordering Provider: JEVON ZAZUETA Report Released Date/Time: Jun 22, 2024 05:51 PM Reporting Lab: [facility] [address] Performing Lab: [facility] [address] CREATININE 0.7 mg/dL 0.7-1.2 UREA NITROGEN 17 [...] >60 Jun 21, 2024 06:[address] [facility] URINALYSIS Specimen Type: URINE No comment entered. Ordering Provider: DELIA MARTINEZ Report Released Date/Time: Jun 21, 2024 05:45 PM Reporting Lab: [facility] [address] Performing Lab: [facility] [address] URINE COLOR YELLOW SPECIFIC GRAVITY 1.041 H [...] NEGATIVE Jun 21, 2024 05:[address] [facility] POC CREATININE Specimen Type: BLOOD No comment entered. Ordering Provider: DELIA MARTINEZ Report Released Date/Time: Jun 21, 2024 06:07 PM Reporting Lab: [facility] [address] Performing Lab: [facility] [address] POC CREATININE 1.1 mg/dL 0.6-1.3 Jun 21, 2024 05:[address] [facility] POC ABG/LACTATE Specimen Type: VENOUS BLOOD No comment entered. Ordering Provider: DELIA MARTINEZ Report Released Date/Time: Jun 21, 2024 06:07 PM Reporting Lab: [facility] [address] Performing Lab: [facility] [address] POC PH 7.470 H 7.31-7.41 POC PCO2 31.2 mm[Hg] L 41.00-51 .0 0 POC PO2 46 mm[Hg] H 35.0-40.0 POC TCO2 24 mmol/L 24.0-29.0 POC HCO3 22.7 mmol/L L 23.0-28.0 POC BE ECT -1 mmol/L POC SO2 85 H 70-75 POC LACTATE 1.85 mmol/L 0.90-1.70 Jun 21, 2024 05:[address] [facility] PROTHROMBIN TIME/INR Specimen Type: PLASMA No comment entered. Ordering Provider: DELIA MARTINEZ Report Released Date/Time: Jun 21, 2024 05:30 PM Reporting Lab: [facility] [address] Performing Lab: [facility] [address] .INR 1.2 H 0.8-1.1 .PT 13.9 s H 9.4-12.5 Jun 21, 2024 05:[address] [facility] LIPASE Specimen Type: PLASMA No comment entered. Ordering Provider: DELIA MARTINEZ Report Released Date/Time: Jun 21, 2024 05:30 PM Reporting Lab: [facility] [address] Performing Lab: [facility] [address] LIPASE 32 U/L <60 Jun 21, 2024 05:[address] [facility] EXTRA GOLD GEL TUBE Specimen Type: SERUM No comment entered. Ordering Provider: DELIA MARTINEZ Report Released Date/Time: Jun 21, 2024 05:41 PM Reporting Lab: [facility] [address] Performing Lab: [facility] [address] EXTRA GOLD GEL TUBE RECEIVED Jun 21, 2024 05:[address] [facility] COMPREHENSIVE METABOLIC PANEL+MG Specimen Type: PLASMA No comment entered. Ordering Provider: DELIA MARTINEZ Report Released Date/Time: Jun 21, 2024 05:30 PM Reporting Lab: [facility] [address] Performing Lab: [facility] [address] CREATININE 0.9 mg/dL 0.7-1.2 UREA NITROGEN 29 [...] <0.5 Jun 21, 2024 05:[address] [facility] CBC & DIFF Specimen Type: BLOOD Comment: Manual Differential Performed Ordering Provider: DELIA MARTINEZ Report Released Date/Time: Jun 21, 2024 05:30 PM Reporting Lab: [facility] [address] Performing Lab: [facility] [address] WBC 21.3 H 4.0-11.0 RBC 5.48 4.60-6.20 [...] Height Weight Body Mass Index Source Jul 17, 2024 11:53 PM 6 [facility] Jul 17, 2024 10:52 PM 8 [facility] Jul 17, 2024 02:47 PM 7 [facility] Jul 17, 2024 07:09 AM 7 [facility] Social History: Smoking Status (Most current) [...] 2024 08:30 AM [facility]ACCO [facility] [address] [facility] May 06, 2023 11:30 AM VA-TOBACCO FORMER USER [facility] May 06, 2023 11:30 AM VA-TOBACCO [...] 18, 2024 06:15 PM CHEST 1 VIEW: MEGFLACADARCI LOBO [id number] -1950 M Exm Date: JUL 18, 2024@18:15 Req Phys: LEISA GOLDEN Pat Loc: 07-18-2024@19:00 Img Loc: MAIN X-RAY Service: PRIMARY [place]ARE [place] [address] (Case [id number] COMPLETE) CHEST 1 VIEW (RAD Detailed) CPT:48378 Proc Modifiers : PORTABLE EXAM Reason for Study: SOB Clinical History: [place] IS NOT under investigation for COVID-19 or is COVID-19 negative 73 yo with SOB Responsible provider name and phone number to notify for critical findings if other than user placing the order and pager listed below: User placing orders pager: [phone] LAST CREATININE 1.2 (07/17/24) Report Status: Verified Date Reported: JUL 18, 2024 Date Verified: JUL 18, 2024 Freelance Copywriter E-Sig:/ES/CARLOS A CUNNINGHAM DO Report: EXAMINATION: CHEST 1 VIEW Reason for Study: SOB [place] IS NOT under investigation for COVID-19 or is COVID-19 negative 73 yo with SOB Responsible provider name and phone number to notify for critical findings if other than user placing the order and pager listed below: User placing orders pager: [phone] LAST CREATININE 1.2 (07/17/24) SOB TECHNIQUE: Single [...] Interpreting Staff: CARLOS A CUNNINGHAM DO, RADIOLOGIST (Freelance Copywriter) /CARLOS A [facility]OWELL [facility] Jul 16, 2024 07:[address] ABDOMEN/PELVIS: MEGFLACA YAMIL [id number] -1950 Exm Date: JUL 16, 2024@07:49 Req Phys: JATINDER CABRERA Loc: 07-17-2024@09:02 Img Loc: OUTSOURCE CT Service: Unknown (Case [id number] COMPLETE) NON PR CT ABDOMEN/PELVIS (CT Detailed) CPT:94563 Reason for Study: outside study Clinical History: [...] BY: / *ELECTRONICALLY FILED* [facility] Jul 13, 2024 09:[address] ABDOMEN/PELVIS: FLACA WEAVER [id number] -1950 M Exm Date: JUL 13, 2024@09:41 Req Phys: CELIOSWEETIEJATINDER [place] Patel Loc: 3E07-17-2024@09:08 Img Loc: OUTSOURCE CT Service: Unknown (Case [id number] COMPLETE) NON PR CT ABDOMEN/PELVIS (CT Detailed) CPT:49614 Reason for Study: outside study Clinical History: [...] BY: / *ELECTRONICALLY FILED* [facility] Jul 08, 2024 10:09 AM CHEST 2 VIEWS PA AND LAT: FLACA WEAVER [id number] -1950 M Exm Date: JUL 08, 2024@10:09 Req Phys: KATELYNN PERSON Loc: 2KG07-08-2024@11:49 Img Loc: MAIN X-RAY Service: [place] [address] (Case 24 COMPLETE) CHEST 2 VIEWS PA AND LAT (RAD Detailed) CPT:87626 Reason for Study: Uptrending WBC, POD 5 Clinical History: [place] IS NOT under investigation for COVID-19 or is COVID-19 negative POD 5, work up for uptrending wbc Responsible provider name and phone number to notify for critical findings if other than user placing the order and pager listed below: User placing orders pager: Katelynn Person LAST CREATININE 0.9 (07/07/24) Report Status: Verified Date Reported: JUL 08, 2024 Date Verified: JUL 08, 2024 Freelance Copywriter E-Sig: Report: CHEST 2 VIEWS PA AND [...] cardiopulmonary disease. READING PHYSICIAN: Sarbjit Vaughn M.D. -[phone] 07/08/2024 12:46 EST [facility] National Teleradiology Program [phone] (For Medical Practitioner Use Only) Attention Patients / Veterans: If you have questions or concerns about these test results, please contact your ordering provider or primary care team. Primary Interpreting Staff: RADIOLOGY,OUTSIDE SERVICE, Staff Physician / RADIOLOGY,OUTSIDE SERVICE [facility] Jul 08, 2024 10:[address] (AP) ABDOMEN/PELVIS W CONTRAST: MEGFLACA YAMIL [id number] -1950 M Exm Date: JUL 08, 2024@10:00 Req Phys: KATELYNN PERSON [facility] Loc: [facility]/07-08-2024@12:07 Img Loc: CT IMAGING Service: [place] [address] (Case 22 COMPLETE) CT (AP) ABDOMEN/PELVIS W CONTRAST(CT Detailed) CPT:25550 Contrast Media : Non-ionic Iodinated Reason for [...] PLASMA .CREAT EGFR(CKD-E >90 Ref: >=60 Allergies: ([place] only) TERAZOSIN (Mar 13, 2015) Report Status: Verified Date Reported: JUL 08, 2024 Date Verified: JUL 08, 2024 Freelance Copywriter E-Sig: Report: CT (AP) ABDOMEN/PELVIS W CONTRAST [...] Anterior abdominal wall postsurgical changes with skin jeronimo Impression: 1. Postsurgical changes with sigmoidectomy and RIGHT lower quadrant ileostomy. No postsurgical fluid collection. Mild fluid distention of small and large bowel likely due to mild ileus. No definite obstruction or other acute findings. Surgical drain is present in the pelvis. 2. Other chronic changes as noted above READING PHYSICIAN: Celestino Blanc -[phone] 07/08/2024 13:[address] [facility] [phone] (For Medical Practitioner Use Only) Attention Patients / Veterans: If you have questions or concerns about these test results, please contact your ordering provider or primary care team. Primary Interpreting Staff: RADIOLOGY,OUTSIDE SERVICE, Staff Physician / RADIOLOGY,OUTSIDE SERVICE [facility] Jun 22, 2024 11:49 AM ABSCESS DRAIN PLACEMENT PERITONEAL (P): FLACA WEAVER [id number] -1950 M Exm Date: JUN 22, 2024@11:49 Req Phys: ANGELA HOLDEN Loc: [facility]/06-22-2024@17:14 Img Loc: INTERVENTIONAL RADIOLOGY Service: [place] [address] (Case [id number] COMPLETE) IR PERITONEAL/RETROPERITONEAL PER(ANI Detailed) CPT:37439 Reason for Study: diverticulitis with abscess (Case 3570 COMPLETE) IR MOD SEDATION 10-22 MIN (ANI Detailed) CPT:85354 Clinical History: [place] IS NOT under investigation for COVID-19 or is COVID-19 negative 73 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 please place abscess drain. Contact number for responsible provider who can be reached for any questions or notifications of critical findings: [phone] n/a LAST CREATININE 0.9 (06/21/24) Report Status: Verified Date Reported: JUN 22, 2024 Date Verified: JUN 22, 2024 Freelance Copywriter E-Sig:/ES/LISA PENDLETON MD Report: PROCEDURES: Placement of [...] Using real-time CT fluoroscopy, a 5 Haitian Standing Cloudesis catheter was advanced into the collection in [...] Primary Interpreting Staff: LISA PENDLETON MD, RADIOLOGIST (Freelance Copywriter) /JRLISA [facility] Jun 22, 2024 11:[address] NEEDLE PLACEMENT (P): FLACA WEAVER [id number] -1950 M Exm Date: JUN 22, 2024@11:48 Req Phys: ANGELA HOLDEN Loc: 2KC06-22-2024@17:14 Img Loc: CT IMAGING Service: [place] [address] (Case [id number] COMPLETE) CT SCAN FOR NEEDLE PLACEMENT (CT Detailed) CPT:09022 Reason for Study: l pelvic abscess drain Clinical History: Report Status: Verified Date Reported: JUN 22, 2024 Date Verified: JUN 22, 2024 Freelance Copywriter E-Sig:/ES/ILSA PENDLETON MD Report: PROCEDURES: Placement of abscess [...] Using real-time CT fluoroscopy, a 5 Haitian Standing Cloudesis catheter was advanced into the collection in [...] Primary Interpreting Staff: LISA PENDLETON MD, RADIOLOGIST (Freelance Copywriter) /JRT LISA PENDLETON [facility] Jun 21, 2024 06:[address] (AP) ABDOMEN/PELVIS (P): FLACA WEAVER [id number] -1950 M Exm Date: JUN 21, 2024@18:09 Req Phys: DELIA MARTINEZ Loc: [facility] (Re Img Loc: CT IMAGING Service: [place] [address] (Case [id number] COMPLETE) CT (AP) ABDOMEN/PELVIS W CONTRAST(CT Detailed) CPT:53889 Contrast Media : Non-ionic Iodinated Reason for [...] PLASMA .CREAT EGFR(CKD-E >90 Ref: >=60 Allergies: ([place] only) TERAZOSIN (Mar 13, 2015) Defer to [...] 21, 2024 Date Verified: JUN 21, 2024 Freelance Copywriter E-Sig:/ALEXI/CARLOS A CUNNINGHAM DO Report: EXAMINATION: CT [...] Interpreting Staff: CARLOS A CUNNINGHAM DO, RADIOLOGIST (Freelance Copywriter) /CARLOS A ROWELL [facility] Pathology Reports: +/- 30 [...] PORT: Reporting Lab: [facility] [CLIA# [id number]] [place] [address] Accession [UID]: [id number] [[id number]] Received: Jul 16, 2024@14:41 Collection sample: BLOOD Collection date: Jul 16, 2024 14:07 Provider: LEISA GOLDEN Comment on specimen: Manish [place], RECEIVED 2 BLOOD CULTURE BOTTLES Test(s) ordered: CULTURE & SUSCEPTIBILITY...... completed: Jul 22, 2024 * BACTERIOLOGY FINAL REPORT => Jul 22, 2024 13:39 TECH CODE: [id number] CULTURE RESULTS: NO GROWTH 5 DAYS Bacteriology Remark(s): THIS REPORT IS FINAL =--=--=--=--=--=--=--=--=--= --=--=--=--=--=--=--=--=--=- -=--=--=--=--=--=--=-- Performing Laboratory: Bacteriology Report Performed By: [facility] [CLIA# [id number]] [place] [address] [facility] Jul 16, 2024 01:54 PM LR MICROBIOLOGY RE PORT: Reporting Lab: [facility] [CLIA# [id number]] [place] [address] Accession [UID]: [id number] [[id number]] Received: Jul 16, 2024@14:41 Collection sample: BLOOD Collection date: Jul 16, 2024 13:54 Provider: LEISA GOLDEN Comment on specimen: L AC, RECEIVED 2 BLOOD CULTURE BOTTLES Test(s) ordered: CULTURE & SUSCEPTIBILITY...... completed: Jul 22, 2024 * BACTERIOLOGY FINAL REPORT => Jul 22, 2024 13:39 TECH CODE: [id number] CULTURE RESULTS: NO GROWTH 5 DAYS Bacteriology Remark(s): THIS REPORT IS FINAL =--=--=--=--=--=--=--=--=--= --=--=--=--=--=--=--=--=--=- -=--=--=--=--=--=--=-- Performing Laboratory: Bacteriology Report Performed By: [facility] [CLIA# [id number]] [place] [address] [facility] Jul 03, 2024 05:59 AM LR SURGICAL PATHOL OGY REPORT: LOCAL TITLE: LR SURGICAL PATHOLOGY REPORT STANDARD TITLE: PATHOLOGY REPORT DATE OF NOTE: JUL 06, 2024@10:40:48 ENTRY DATE: JUL 06, 2024@10:40:48 AUTHOR: EDUARDO PALOMARES EXP COSIGNER: URGENCY: STATUS: COMPLETED $APHDR Reporting Lab: [facility] [CLIA# [id number]] [place] [address] - - - - - - - [...] - PATHOLOGY REPORT Accession No. [id number] - - - - - - - [...] Surgeon/physician: WENCESLAO ARREDONDO MD Attending Surgeon: Wenceslao G Arsoniadis MD =-=-=-=-=-=-=-=-=-=-=-=-=-=- =-=-=-=-=-=-=-=-=-=-=-=-=-=- =-=-=-=-=-=-=-=-=-=-=-= - - - - - - - - - - - - - - - - - - - - - - - - - - - - - - - - - - - - - - - - PATHOLOGY REPORT Accession No. [id number] - - - - - - - [...] Second circumferential surgical margin, en face; E-F: Ems Driver diverticula; G: Ems Driver section of mesentery; H: Random representative phlebotomy services section of additional adipose tissue fragment. SS. 2. The specimen is received in formalin labeled anastomotic rings and consists of two unoriented colonic tissue rings measuring 1.0 cm in length x 2.2 cm in diameter and 1.2 cm in length x 2.0 cm in diameter. The shorter tissue ring contains numerous jeronimo; the jeronimo are removed and salvageable tissue is submitted. Summary of sections: A: One colonic tissue ring; B-C: One colonic tissue ring, bisected transversely. SS. (D)[facility] MICROSCOPIC DESCRIPTION: Microscopic examination performed. DIAGNOSIS: 1. Colon, sigmoid, sigmoidectomy-- - Diverticulosis with perforation and focal abscess formation 2. Colon, anastomotic rings, excision-- - Viable colonic mucosa without diagnostic abnormality /alexi/ EDUARDO PALOMARES MD STAFF PATHOLOGIST Signed Jul 06, 2024@10:40 Performing Laboratory: Surgical Pathology Report Performed By: [facility] [CLIA# [id number]] [place] [address] $FTR - - - - - - [...] - - FLACA WEAVER STANDARD FORM 515 ID:[id number] SEX:M :1950 AGE: 73 LOC:26859 ADM:Jun DX:DIVERTICULITIS PCP: Jatinder Cabrera /alexi/ EDUARDO PALOMARES MD STAFF PATHOLOGIST Signed: 07/06/2024 10:[address] [facility] Jun 22, 2024 01:15 PM LR MICROBIOLOGY RE PORT: Reporting Lab: [facility] [CLIA# [id number]] [place] [address] Accession [UID]: [id number] [[id number]] Received: Jun 22, 2024@13:38 Collection sample: FLUID Collection date: Jun 22, 2024 13:15 Provider: ANGELA HOLDEN Comment on specimen: LLQ ABSCESS, RECEIVED IN ANAEROBIC TRANSPORT VIAL Test(s) ordered: GRAM STAIN.................... completed: Jun 22, 2024 15:03 CULTURE & SUSCEPTIBILITY...... completed: Jun 25, 2024 * BACTERIOLOGY FINAL REPORT => Jun 25, 2024 10:56 TECH CODE: [id number] GRAM STAIN: DIRECT SMEAR of specimen before [...] Report Performed By: [facility] [CLIA# [id number]] [place] [address] [facility] Jun 22, 2024 01:15 PM LR MICROBIOLOGY RE PORT: Reporting Lab: [facility] [CLIA# [id number]] [place] [address] Accession [UID]: [id number] [[id number]] Received: Jun 22, 2024@13:38 Collection sample: FLUID Collection date: Jun 22, 2024 13:15 Provider: ANGELA HOLDEN Comment on specimen: LLQ ABSCESS, RECEIVED IN ANAEROBIC TRANSPORT VIAL Test(s) ordered: ANAEROBIC CULTURE............. completed: Jun 28, 2024 * BACTERIOLOGY FINAL REPORT => Jun 28, 2024 10:08 TECH CODE: [id number] CULTURE RESULTS: HEAVY GROWTH MIXED ANAEROBES Comment: [...] Report Performed By: [facility] [CLIA# [id number]] [place] [address] [facility] Jun 21, 2024 06:12 PM LR MICROBIOLOGY RE PORT: Reporting Lab: [facility] [CLIA# [id number]] [place] [address] Accession [UID]: [id number] [[id number]] Received: Jun 21, 2024@18:12 Collection sample: BLOOD [...] Report Performed By: [facility] [CLIA# [id number]] [place] [address] [facility] Jun 21, 2024 06:11 PM LR MICROBIOLOGY RE PORT: Reporting Lab: [facility] [CLIA# [id number]] [place] [address] Accession [UID]: [id number] [[id number]] Received: Jun 21, 2024@18:11 Collection sample: BLOOD [...] Report Performed By: [facility] [CLIA# [id number]] [place] [address] [facility] Encounter Notes: All associated encounter notes This section contains the clinical notes associated to the Encounter. Date/Time Encounter Note(s) Provider Source Jul 17, 2024 10:06 AM COLON & RECTAL ELISA BRAEDEN NOTE: LOCAL TITLE: COLON-RECTAL INPT PROGRESS NOTE STANDARD TITLE: COLON & RECTAL SURGERY NOTE DATE OF NOTE: JUL 17, 2024@10:06 ENTRY DATE: JUL 17, 2024@10:07:01 AUTHOR: ROSALINDA METZGER COSIGNER: URGENCY: STATUS: COMPLETED INPATIENT PROGRESS NOTE Subjective: Patient upset with his recovery post op. Denies nausea or vomitting. Abd pain has improved with medications. Objective: General: sitting comfortably in chair, no acute distress Cardio: normal heart rate, normotensive Lungs: no increased work of breathing, satting well on room air Abd: soft, non-distended, tender to palpation, ostomy connected to a Tracey bag with liquid output. Jeronimo to midline abdominal incision are dry, clean, intact. Extrem: warm and well perfused Neuro: awake and alert Active Medications: Active Inpatient Medications (including Supplies): Active Inpatient Medications Status 1) NALOXONE INJ,SOLN 0.4MG/1ML IV PRN For opioid ACTIVE overdose (difficult to arouse and RR<8). Call provider or AUTOMATION QA LEAD. May repeat every 2-3 min up to 3 total doses. Administer INTRAMUSCULARLY if no IV access. 2) ONDANSETRON INJ,SOLN 4MG/2ML IV Q6H PRN FOR NAUSEA ACTIVE 3) PIPERACILLIN/TAZOBACTAM 4.5GM 100ML INJ in ACTIVE PIPERACIL/TAZOB 4.5GM PREMIX 100 ML INFUSE OVER 30 Minutes Pharmacy Confirmation #: [id number] Q6H 4) SALINE FLUSH INJ 10ML [...] 4.3 (07/17/24) BILIRUBIN, TOTAL 0.8 (07/17/24) Imaging CT imaging imported to [place] records. Conserns for midline fascial dehiscence with herniation of the bowel into the subcutaneous tissue. Assessment/Plan: 74 y/o M with h/o CAD, HLD, HTN, CKD, HFrEF, and diverticulitis (c/b colovesicular fistula), s/p laparoscopic converted to open sigmoid colectomy, splenic flexure mobilization, diverting loop ileostomy, flex sig with bilateral ureteral stent placement with [facility]rology on 07/03/24. Discharged on 07/10 in good health. Re-admitted as a transfer from OSH for concerns for sepsis with high iliostomy output. Colorectal surgery was consulted for concerns for an incisional hernia. No evidence of symptoms resulting from hernia, and no strangulation or incarceration noted. There is concern on imported imaging that the patient has has facial dehiscence into his subcutaneous tissue that extends to his skin staple line. Plans to manage his hernia nonoperatively with conservative interventions. - Can advance diet as tolerated - Patient should wear and abdominal monitor at all times - Recommend resucitation and strict I/O of ileostomy - Encourage fiber and immodium; patient declined these last admission - Rest of cares and antibiotics per primary team Patient was seen with chief surgical endoscopist and discussedw with colorecal fellow who will be discussed with colorecal attending. Rosalinda Metzger MD General Surgery Resident, PGY2 /es/ ROSALINDA METZGER General Surgery Resident Signed: 07/17/2024 10:27 Receipt Acknowledged By: 07/19/2024 01:08 /alexi/ WENCESLAO ARREDONDO MD STAFF SURGEON, COLON/RECTAL ROSALINDA METZGER [facility]
--- OUTSIDE RECORDS SUMMARY | 2024-08-01 07:56 | XMS_ITS ---
[place] DAILY HOSPITALIZATION DATA [facility] HCS Encounter Summary Created on: August 01, 2024 MEG FLACADARCI LOBO : 1950 Sex: Male Author Name [facility] Address [address] [place] [address] Care Team Providers Care Private Branch Exchange Operator Name Role Phone JATINDER CABRERA Primary [...] PART A Sep 29, 2016 PART A [id number] [phone] JUDY WEAVER PATIENT Selected Encounter This section includes the information on record at [place] for the Encounter. Date/Time Encounter Type Encounter Description Reason Pro vider Source Jul 17, 2024 07:19 AM Inpatient Visit DAILY HOSPITALIZATION DATA IHE [...] stry Order URINALYSIS URINE WC ONCE [facility] Jun 12, 2024 12:00 AM Laboratory - Chemi stry Order BNP PLASMA SP ONCE [facility] Jun 21, 2024 05:45 PM Laboratory - Blood Bank Order TYPE & SCREEN - LAB BLOOD WC [facility] Jul 03, 2024 12:00 AM Laboratory - Blood Bank Order TYPE & SCREEN - LAB BLOOD WC [facility] Jul 16, 2024 12:00 AM Laboratory - Chemi stry Order CBC BLOOD SP ONCE [facility] Jul 17, 2024 12:00 AM Laboratory [...] Range Comment Jul 21, 2024 10:38 AM [facility] BASIC METABOLIC PANEL+MG Specimen Type: PLASMA No comment entered. Ordering Provider: SARAI GOLDEN Report Released Date/Time: Jul 20, 2024 06:50 PM Reporting Lab: [facility] [address] Performing Lab: [facility] [address] CREATININE 0.8 mg/dL 0.7-1.2 UREA NITROGEN 31 mg/dL H 8-26 GLUCOSE 120 mg/dL H 70-100 SODIUM 125 mmol/L L 136-145 POTASSIUM 4.4 mmol/L 3.5-5.1 CHLORIDE 100 mmol/L 98-107 CO2 17 mmol/L L 22-29 CALCIUM 9.6 mg/dL 8.4-10.2 MAGNESIUM 1.9 mg/dL 1.6-2.6 ANION GAP 8 mmol/L 5-15 .CREAT EGFR(CKD-EPI) >90 >60 Jul 21, 2024 10:38 AM [facility] CBC Specimen Type: BLOOD No comment entered. Ordering Provider: SARAI GOLDEN Report Released Date/Time: Jul 20, 2024 06:50 PM Reporting Lab: [facility] [address] Performing Lab: [facility] [address] WBC 16.0 H 4.0-11.0 RBC 5.16 4.60-6.20 HGB 15.8 g/dL 13.5-17.9 HCT 45.5 41.0-54.0 MCV 88.2 fL 80.0-100.0 MCH 30.6 pg 27.0-33.0 MCHC 34.7 g/dL 32.0-37.5 PLT 428 H 150-400 MPV 10.8 fL 9.1-13.0 RDW 13.6 11.5-14.5 Jul 20, 2024 01:00 PM [facility] SODIUM,URINE RANDOM Specimen Type: URINE No comment entered. Ordering Provider: SARAI GOLDEN Report Released Date/Time: Jul 20, 2024 08:22 AM Reporting Lab: [facility] [address] Performing Lab: [facility] [address] SODIUM,URINE RANDOM <20 mmol/L Jul 20, 2024 01:00 PM [facility] OSMOLALITY,URINE Specimen Type: URINE No comment entered. Ordering Provider: SARAI GOLDEN Report Released Date/Time: Jul 20, 2024 08:22 AM Reporting Lab: [facility] [address] Performing Lab: [facility] [address] OSMOLALITY,URIN E 648 mosm/kg 500-800 Jul 20, 2024 06:45 AM [facility] BASIC METABOLIC PANEL+MG Specimen Type: PLASMA No comment entered. Ordering Provider: SARAI GOLDEN Report Released Date/Time: Jul 19, 2024 06:13 PM Reporting Lab: [facility] [address] Performing Lab: [facility] [address] CREATININE 0.8 mg/dL 0.7-1.2 UREA NITROGEN 36 mg/dL H 8-26 GLUCOSE 111 mg/dL H 70-100 SODIUM 121 mmol/L L 136-145 POTASSIUM 4.1 mmol/L 3.5-5.1 CHLORIDE 99 mmol/L 98-107 CO2 14 mmol/L L 22-29 CALCIUM 9.5 mg/dL 8.4-10.2 MAGNESIUM 1.8 mg/dL 1.6-2.6 ANION GAP 8 mmol/L 5-15 .CREAT EGFR(CKD-EPI) >90 >60 Jul 20, 2024 06:43 AM [facility] CBC & DIFF Specimen Type: BLOOD Comment: Automated Differential Performed Ordering Provider: SARAI GOLDEN Report Released Date/Time: Jul 19, 2024 06:13 PM Reporting Lab: [facility] [address] Performing Lab: [facility] [address] WBC 16.6 H 4.0-11.0 RBC 4.96 4.60-6.20 [...] H 0.0-0.1 Jul 20, 2024 05:30 AM [facility] OSMOLALITY,SERUM Specimen Type: SERUM No comment entered. Ordering Provider: SARAI GOLDEN Report Released Date/Time: Jul 20, 2024 09:47 AM Reporting Lab: [facility] [address] Performing Lab: [facility] [address] OSMOLALITY,SERU M 266 mosm/kg L 276-305 Jul 19, 2024 08:57 AM [facility] BASIC METABOLIC PANEL+MG Specimen Type: PLASMA No comment entered. Ordering Provider: SARAI GOLDEN Report Released Date/Time: Jul 18, 2024 10:24 PM Reporting Lab: [facility] [address] Performing Lab: [facility] [address] CREATININE 1.0 mg/dL 0.7-1.2 UREA NITROGEN 40 mg/dL H 8-26 GLUCOSE 104 mg/dL H 70-100 SODIUM 129 mmol/L L 136-145 POTASSIUM 3.3 mmol/L L 3.5-5.1 CHLORIDE 104 mmol/L 98-107 CO2 16 mmol/L L 22-29 CALCIUM 8.0 mg/dL L 8.4-10.2 MAGNESIUM 1.7 mg/dL 1.6-2.6 ANION GAP 9 mmol/L 5-15 .CREAT EGFR(CKD-EPI) 80 >60 Jul 19, 2024 08:57 AM [facility] CBC Specimen Type: BLOOD No comment entered. Ordering Provider: SARAI GOLDEN Report Released Date/Time: Jul 18, 2024 10:24 PM Reporting Lab: [facility] [address] Performing Lab: [facility] [address] WBC 17.3 H 4.0-11.0 RBC 4.83 4.60-6.20 HGB 14.8 g/dL 13.5-17.9 HCT 42.6 41.0-54.0 MCV 88.2 fL 80.0-100.0 MCH 30.6 pg 27.0-33.0 MCHC 34.7 g/dL 32.0-37.5 PLT 456 H 150-400 MPV 10.8 fL 9.1-13.0 RDW 13.7 11.5-14.5 Jul 17, 2024 06:55 PM [facility] PHOSPHORUS Specimen Type: PLASMA No comment entered. Ordering Provider: SARAI GOLDEN Report Released Date/Time: Jul 17, 2024 01:54 PM Reporting Lab: [facility] [address] Performing Lab: [facility] [address] PHOSPHORUS 2.9 mg/dL 2.3-4.3 Jul 17, 2024 06:55 PM [facility] BASIC METABOLIC PANEL+MG Specimen Type: PLASMA No comment entered. Ordering Provider: SARAI GOLDEN Report Released Date/Time: Jul 17, 2024 01:54 PM Reporting Lab: [facility] [address] Performing Lab: [facility] [address] CREATININE 1.2 mg/dL 0.7-1.2 UREA NITROGEN 62 mg/dL H 8-26 GLUCOSE 116 mg/dL H 70-100 SODIUM 128 mmol/L L 136-145 POTASSIUM 3.8 mmol/L 3.5-5.1 CHLORIDE 100 mmol/L 98-107 CO2 16 mmol/L L 22-29 CALCIUM 9.3 mg/dL 8.4-10.2 MAGNESIUM 2.1 mg/dL 1.6-2.6 ANION GAP 12 mmol/L 5-15 .CREAT EGFR(CKD-EPI) 64 >60 Jul 17, 2024 07:00 AM [facility] CBC & DIFF Specimen Type: BLOOD Comment: Manual Differential Performed Ordering Provider: SARAI GOLDEN Report Released Date/Time: Jul 16, 2024 04:52 PM Reporting Lab: [facility] [address] Performing Lab: [facility] [address] WBC 18.9 H 4.0-11.0 RBC 5.55 4.60-6.20 [...] MORPHOLOGY PRESENT Jul 17, 2024 07:00 AM [facility] ALBUMIN Specimen Type: PLASMA No comment entered. Ordering Provider: SARAI GOLDEN Report Released Date/Time: Jul 16, 2024 12:12 PM Reporting Lab: [facility] [address] Performing Lab: [facility] [address] ALBUMIN 4.3 g/dL 3.5-5.0 Jul 17, 2024 07:00 AM [facility] COMPREHENSIVE METABOLIC PANEL+MG Specimen Type: PLASMA No comment entered. Ordering Provider: SARAI GOLDEN Report Released Date/Time: Jul 16, 2024 04:52 PM Reporting Lab: [facility] [address] Performing Lab: [facility] [address] CREATININE 1.3 mg/dL H 0.7-1.2 UREA NITROGEN [...] L >60 Jul 16, 2024 07:10 PM [facility] LACTIC ACID Specimen Type: PLASMA No comment entered. Ordering Provider: SARAI GOLDEN Report Released Date/Time: Jul 16, 2024 12:12 PM Reporting Lab: [facility] [address] Performing Lab: [facility] [address] LACTIC ACID 0.9 mmol/L 0.5-2.2 Jul 16, 2024 02:14 PM [facility] MRSA SURVL NARES DNA Specimen Type: NARES No comment entered. Ordering Provider: SARAI GOLDEN Report Released Date/Time: Jul 16, 2024 12:12 PM Reporting Lab: [facility] [address] Performing Lab: [facility] [address] MRSA SURVL NARES DNA NEGATIVE Negative Jul 16, 2024 02:10 PM [facility] LACTIC ACID Specimen Type: PLASMA No comment entered. Ordering Provider: SARAI GOLDEN Report Released Date/Time: Jul 16, 2024 12:12 PM Reporting Lab: [facility] [address] Performing Lab: [facility] [address] LACTIC ACID 0.9 mmol/L 0.5-2.2 Jul 16, 2024 02:08 PM [facility] COMPREHENSIVE METABOLIC PANEL+MG Specimen Type: PLASMA No comment entered. Ordering Provider: SARAI GOLDEN Report Released Date/Time: Jul 16, 2024 12:12 PM Reporting Lab: [facility] [address] Performing Lab: [facility] [address] CREATININE 2.0 mg/dL H 0.7-1.2 UREA NITROGEN [...] L >60 Jul 16, 2024 02:08 PM [facility] CBC & DIFF Specimen Type: BLOOD Comment: Manual Differential Performed Ordering Provider: SARAI GOLDEN Report Released Date/Time: Jul 16, 2024 12:12 PM Reporting Lab: [facility] [address] Performing Lab: [facility] [address] WBC 19.7 H 4.0-11.0 RBC 5.39 4.60-6.20 [...] MORPHOLOGY PRESENT Jul 10, 2024 07:16 AM [facility] PHOSPHORUS Specimen Type: PLASMA No comment entered. Ordering Provider: JUANCARLOS ECHOLS Report Released Date/Time: Jul 09, 2024 12:23 PM Reporting Lab: [facility] [address] Performing Lab: [facility] [address] PHOSPHORUS 3.0 mg/dL 2.3-4.3 Jul 10, 2024 07:16 AM [facility] BASIC METABOLIC PANEL+MG Specimen Type: PLASMA No comment entered. Ordering Provider: JUANCARLOS ECHOLS S Report Released Date/Time: Jul 09, 2024 12:23 PM Reporting Lab: [facility] [address] Performing Lab: [facility] [address] CREATININE 0.7 mg/dL 0.7-1.2 UREA NITROGEN 27 mg/dL H 8-26 GLUCOSE 104 mg/dL H 70-100 SODIUM 133 mmol/L L 136-145 POTASSIUM 4.3 mmol/L 3.5-5.1 CHLORIDE 102 mmol/L 98-107 CO2 19 mmol/L L 22-29 CALCIUM 10.1 mg/dL 8.4-10.2 MAGNESIUM 1.9 mg/dL 1.6-2.6 ANION GAP 12 mmol/L 5-15 .CREAT EGFR(CKD-EPI) >90 >60 Jul 10, 2024 07:15 AM [facility] CBC Specimen Type: BLOOD No comment entered. Ordering Provider: JUANCARLOS ECHOLS Report Released Date/Time: Jul 09, 2024 12:23 PM Reporting Lab: [facility] [address] Performing Lab: [facility] [address] WBC 18.8 H 4.0-11.0 RBC 5.08 4.60-6.20 HGB 15.9 g/dL 13.5-17.9 HCT 46.8 41.0-54.0 MCV 92.1 fL 80.0-100.0 MCH 31.3 pg 27.0-33.0 MCHC 34.0 g/dL 32.0-37.5 PLT 479 H 150-400 MPV 10.2 fL 9.1-13.0 RDW 13.7 11.5-14.5 Jul 09, 2024 07:08 AM [facility] CBC Specimen Type: BLOOD No comment entered. Ordering Provider: QUYNH WEISS Report Released Date/Time: Jul 08, 2024 06:18 PM Reporting Lab: [facility] [address] Performing Lab: [facility] [address] WBC 15.3 H 4.0-11.0 RBC 4.91 4.60-6.20 HGB 15.1 g/dL 13.5-17.9 HCT 45.7 41.0-54.0 MCV 93.1 fL 80.0-100.0 MCH 30.8 pg 27.0-33.0 MCHC 33.0 g/dL 32.0-37.5 PLT 443 H 150-400 MPV 10.0 fL 9.1-13.0 RDW 13.5 11.5-14.5 Jul 08, 2024 10:50 AM [facility] URINALYSIS Specimen Type: URINE No comment entered. Ordering Provider: KATELYNN PERSON Report Released Date/Time: Jul 08, 2024 08:41 AM Reporting Lab: [facility] [address] Performing Lab: [facility] [address] URINE COLOR YELLOW SPECIFIC GRAVITY >1.050 H [...] NEGATIVE Jul 08, 2024 09:54 AM [facility] CBC Specimen Type: BLOOD Comment: Specimen received in Lab at: [id number] Ordering Provider: JUANCARLOS ECHOLS Report Released Date/Time: Jul 07, 2024 04:49 PM Reporting Lab: [facility] [address] Performing Lab: [facility] [address] WBC 17.5 H 4.0-11.0 RBC 4.88 4.60-6.20 HGB 14.9 g/dL 13.5-17.9 HCT 45.7 41.0-54.0 MCV 93.6 fL 80.0-100.0 MCH 30.5 pg 27.0-33.0 MCHC 32.6 g/dL 32.0-37.5 PLT 472 H 150-400 MPV 10.2 fL 9.1-13.0 RDW 13.7 11.5-14.5 Jul 08, 2024 09:54 AM [facility] PHOSPHORUS Specimen Type: PLASMA Comment: Specimen received in Lab at: [id number] Ordering Provider: JUANCARLOS ECHOLS Report Released Date/Time: Jul 07, 2024 04:49 PM Reporting Lab: [facility] [address] Performing Lab: [facility] [address] PHOSPHORUS 2.6 mg/dL 2.3-4.3 Jul 08, 2024 09:54 AM [facility] BASIC METABOLIC PANEL+MG Specimen Type: PLASMA Comment: Specimen received in Lab at: 0952 Ordering Provider: JUANCARLOS ECHOLS Report Released Date/Time: Jul 07, 2024 04:49 PM Reporting Lab: [facility] [address] Performing Lab: [facility] [address] CREATININE 0.9 mg/dL 0.7-1.2 UREA NITROGEN 26 mg/dL 8-26 GLUCOSE 128 mg/dL H 70-100 SODIUM 134 mmol/L L 136-145 POTASSIUM 3.4 mmol/L L 3.5-5.1 CHLORIDE 100 mmol/L 98-107 CO2 24 mmol/L 22-29 CALCIUM 9.8 mg/dL 8.4-10.2 MAGNESIUM 1.8 mg/dL 1.6-2.6 ANION GAP 10 mmol/L 5-15 .CREAT EGFR(CKD-EPI) >90 >60 Jul 07, 2024 02:00 PM [facility] C DIFF PANEL Specimen Type: FECES No comment entered. Ordering Provider: JEVON ZAZUETA Report Released Date/Time: Jul 07, 2024 12:26 PM Reporting Lab: [facility] [address] Performing Lab: [facility] [address] C DIFF TOX B GENE PCR NEGATIVE Negative Jul 07, 2024 07:41 AM [facility] PHOSPHORUS Specimen Type: PLASMA No comment entered. Ordering Provider: JEVON ZAZUETA Report Released Date/Time: Jul 06, 2024 03:44 PM Reporting Lab: [facility] [address] Performing Lab: [facility] [address] PHOSPHORUS 3.1 mg/dL 2.3-4.3 Jul 07, 2024 07:41 AM [facility] BASIC METABOLIC PANEL+MG Specimen Type: PLASMA No comment entered. Ordering Provider: JEVON ZAZUETA Report Released Date/Time: Jul 06, 2024 03:44 PM Reporting Lab: [facility] [address] Performing Lab: [facility] [address] CREATININE 0.9 mg/dL 0.7-1.2 UREA NITROGEN 20 mg/dL 8-26 GLUCOSE 157 mg/dL H 70-100 SODIUM 136 mmol/L 136-145 POTASSIUM 3.7 mmol/L 3.5-5.1 CHLORIDE 102 mmol/L 98-107 CO2 21 mmol/L L 22-29 CALCIUM 9.8 mg/dL 8.4-10.2 MAGNESIUM 1.9 mg/dL 1.6-2.6 ANION GAP 13 mmol/L 5-15 .CREAT EGFR(CKD-EPI) >90 >60 Jul 07, 2024 07:40 AM [facility] CBC Specimen Type: BLOOD No comment entered. Ordering Provider: JEVON ZAZUETA Report Released Date/Time: Jul 06, 2024 03:44 PM Reporting Lab: [facility] [address] Performing Lab: [facility] [address] WBC 21.2 H 4.0-11.0 RBC 5.09 4.60-6.20 HGB 15.9 g/dL 13.5-17.9 HCT 48.3 41.0-54.0 MCV 94.9 fL 80.0-100.0 MCH 31.2 pg 27.0-33.0 MCHC 32.9 g/dL 32.0-37.5 PLT 500 H 150-400 MPV 10.3 fL 9.1-13.0 RDW 13.6 11.5-14.5 Jul 06, 2024 07:21 AM [facility] CBC Specimen Type: BLOOD No comment entered. Ordering Provider: JEVON ZAZUETA Report Released Date/Time: Jul 05, 2024 01:22 PM Reporting Lab: [facility] [address] Performing Lab: [facility] [address] WBC 18.0 H 4.0-11.0 RBC 4.83 4.60-6.20 HGB 14.6 g/dL 13.5-17.9 HCT 45.5 41.0-54.0 MCV 94.2 fL 80.0-100.0 MCH 30.2 pg 27.0-33.0 MCHC 32.1 g/dL 32.0-37.5 PLT 368 150-400 MPV 10.4 fL 9.1-13.0 RDW 13.6 11.5-14.5 Jul 06, 2024 07:21 AM [facility] PHOSPHORUS Specimen Type: PLASMA No comment entered. Ordering Provider: JEVON ZAZUETA Report Released Date/Time: Jul 05, 2024 01:22 PM Reporting Lab: [facility] [address] Performing Lab: [facility] [address] PHOSPHORUS 3.6 mg/dL 2.3-4.3 Jul 06, 2024 07:21 AM [facility] BASIC METABOLIC PANEL+MG Specimen Type: PLASMA No comment entered. Ordering Provider: JEVON ZAZUETA Report Released Date/Time: Jul 05, 2024 01:22 PM Reporting Lab: [facility] [address] Performing Lab: [facility] [address] CREATININE 0.7 mg/dL 0.7-1.2 UREA NITROGEN 12 mg/dL 8-26 GLUCOSE 108 mg/dL H 70-100 SODIUM 138 mmol/L 136-145 POTASSIUM 3.4 mmol/L L 3.5-5.1 CHLORIDE 104 mmol/L 98-107 CO2 20 mmol/L L 22-29 CALCIUM 9.3 mg/dL 8.4-10.2 MAGNESIUM 1.9 mg/dL 1.6-2.6 ANION GAP 14 mmol/L 5-15 .CREAT EGFR(CKD-EPI) >90 >60 Jul 05, 2024 07:17 AM [facility] MAGNESIUM Specimen Type: PLASMA No comment entered. Ordering Provider: JUANCARLOS ECHOLS S Report Released Date/Time: Jul 04, 2024 09:39 AM Reporting Lab: [facility] [address] Performing Lab: [facility] [address] MAGNESIUM 2.0 mg/dL 1.6-2.6 Jul 05, 2024 07:17 AM [facility] PHOSPHORUS Specimen Type: PLASMA No comment entered. Ordering Provider: JUANCARLOS ECHOLS S Report Released Date/Time: Jul 04, 2024 09:39 AM Reporting Lab: [facility] [address] Performing Lab: [facility] [address] PHOSPHORUS 2.0 mg/dL L 2.3-4.3 Jul 05, 2024 07:17 AM [facility] BASIC METABOLIC PANEL+MG Specimen Type: PLASMA No comment entered. Ordering Provider: JUANCARLOS ECHOLS S Report Released Date/Time: Jul 04, 2024 09:39 AM Reporting Lab: [facility] [address] Performing Lab: [facility] [address] CREATININE 0.7 mg/dL 0.7-1.2 UREA NITROGEN 12 mg/dL 8-26 GLUCOSE 84 mg/dL 70-100 SODIUM 135 mmol/L L 136-145 POTASSIUM 3.8 mmol/L 3.5-5.1 CHLORIDE 104 mmol/L 98-107 CO2 24 mmol/L 22-29 CALCIUM 9.3 mg/dL 8.4-10.2 MAGNESIUM 2.0 mg/dL 1.6-2.6 ANION GAP 7 mmol/L 5-15 .CREAT EGFR(CKD-EPI) >90 >60 Jul 05, 2024 07:16 AM [facility] CBC Specimen Type: BLOOD No comment entered. Ordering Provider: JUANCARLOS ECHOLS S Report Released Date/Time: Jul 04, 2024 09:39 AM Reporting Lab: [facility] [address] Performing Lab: [facility] [address] WBC 18.3 H 4.0-11.0 RBC 4.49 L 4.60-6.20 HGB 14.1 g/dL 13.5-17.9 HCT 43.4 41.0-54.0 MCV 96.7 fL 80.0-100.0 MCH 31.4 pg 27.0-33.0 MCHC 32.5 g/dL 32.0-37.5 PLT 317 150-400 MPV 10.0 fL 9.1-13.0 RDW 13.9 11.5-14.5 Jul 04, 2024 07:17 AM [facility] BASIC METABOLIC PANEL+MG Specimen Type: PLASMA No comment entered. Ordering Provider: GABINO CAMERON Report Released Date/Time: Jul 03, 2024 06:31 PM Reporting Lab: [facility] [address] Performing Lab: [facility] [address] CREATININE 0.7 mg/dL 0.7-1.2 UREA NITROGEN 16 mg/dL 8-26 GLUCOSE 129 mg/dL H 70-100 SODIUM 137 mmol/L 136-145 POTASSIUM 3.7 mmol/L 3.5-5.1 CHLORIDE 107 mmol/L 98-107 CO2 22 mmol/L 22-29 CALCIUM 9.0 mg/dL 8.4-10.2 MAGNESIUM 1.9 mg/dL 1.6-2.6 ANION GAP 8 mmol/L 5-15 .CREAT EGFR(CKD-EPI) >90 >60 Jul 04, 2024 07:17 AM [facility] PHOSPHORUS Specimen Type: PLASMA No comment entered. Ordering Provider: GABINO CAMERON Report Released Date/Time: Jul 03, 2024 06:31 PM Reporting Lab: [facility] [address] Performing Lab: [facility] [address] PHOSPHORUS 2.8 mg/dL 2.3-4.3 Jul 04, 2024 07:16 AM [facility] CBC Specimen Type: BLOOD No comment entered. Ordering Provider: GABINO CAMERON Report Released Date/Time: Jul 03, 2024 06:31 PM Reporting Lab: [facility] [address] Performing Lab: [facility] [address] WBC 20.6 H 4.0-11.0 RBC 4.63 4.60-6.20 HGB 14.2 g/dL 13.5-17.9 HCT 43.4 41.0-54.0 MCV 93.7 fL 80.0-100.0 MCH 30.7 pg 27.0-33.0 MCHC 32.7 g/dL 32.0-37.5 PLT 329 150-400 MPV 10.4 fL 9.1-13.0 RDW 13.8 11.5-14.5 Jul 04, 2024 07:16 AM [facility] CBC & DIFF Specimen Type: BLOOD Comment: Manual Differential Performed Ordering Provider: GABINO CAMERON Report Released Date/Time: Jul 03, 2024 06:31 PM Reporting Lab: [facility] [address] Performing Lab: [facility] [address] WBC 20.6 H 4.0-11.0 RBC 4.63 4.60-6.20 [...] PRESENT Jul 04, 2024 07:15 AM [facility] BNP Specimen Type: PLASMA No comment entered. Ordering Provider: GABINO CAMERON Report Released Date/Time: Jul 03, 2024 06:31 PM Reporting Lab: [facility] [address] Performing Lab: [facility] [address] BNP 292 pg/mL H <99 Jul 03, 2024 10:32 PM [facility] FINGERSTICK GLUCOSE Specimen Type: BLOOD Comment: Save Result Nurse Notified Ordering Provider: KATELYNN PERSON Report Released Date/Time: Jul 03, 2024 10:50 PM Reporting Lab: [facility] [address] Performing Lab: [facility] [address] F[place] GLUCOSE 126 mg/dL H 70-100 Jul 03, 2024 05:33 PM [facility] F[place] GLUCOSE Specimen Type: BLOOD Comment: Save Result Nurse Notified Ordering Provider: KATELYNN PERSON Report Released Date/Time: Jul 03, 2024 05:46 PM Reporting Lab: [facility] [address] Performing Lab: [facility] [address] [place] GLUCOSE 141 mg/dL H 70-100 Jul 03, 2024 02:31 PM [facility] POC ABG/ELECTROLYTES Specimen Type: ARTERIAL BLOOD Comment: FIO2 = 97% Patient Temp: 36.0 C Sample Type = ARTERIAL Ordering Provider: MAZIN ARREDONDO Report Released Date/Time: Jul 03, 2024 01:48 PM Reporting Lab: [facility] [address] Performing Lab: [facility] [address] POC PH 7.387 7.35-7.45 POC PCO2 34.4 [...] 80.0-105.0 Jul 03, 2024 01:05 PM [facility] POC ABG/ELECTROLYTES Specimen Type: ARTERIAL BLOOD Comment: FIO2 = 53% Patient Temp: 36.2 C Sample Type = ARTERIAL Ordering Provider: MAZIN ARREDONDO Report Released Date/Time: Jul 03, 2024 01:48 PM Reporting Lab: [facility] [address] Performing Lab: [facility] [address] POC PH 7.280 L 7.35-7.45 POC PCO2 [...] 80.0-105.0 Jul 03, 2024 06:15 AM [facility] URINALYSIS Specimen Type: URINE No comment entered. Ordering Provider: MARYBETH POWELL Report Released Date/Time: Jun 12, 2024 04:01 PM Reporting Lab: [facility] [address] Performing Lab: [facility] [address] URINE COLOR YELLOW SPECIFIC GRAVITY 1.031 1.003-1.03 [...] NEGATIVE Jul 03, 2024 06:13 AM [facility] CBC Specimen Type: BLOOD No comment entered. Ordering Provider: MARYBETH POWELL Report Released Date/Time: Jun 12, 2024 03:59 PM Reporting Lab: [facility] [address] Performing Lab: [facility] [address] WBC 15.8 H 4.0-11.0 RBC 5.11 4.60-6.20 HGB 16.1 g/dL 13.5-17.9 HCT 49.1 41.0-54.0 MCV 96.1 fL 80.0-100.0 MCH 31.5 pg 27.0-33.0 MCHC 32.8 g/dL 32.0-37.5 PLT 357 150-400 MPV 9.8 fL 9.1-13.0 RDW 13.7 11.5-14.5 Jun 24, 2024 09:50 AM [facility] BASIC METABOLIC PANEL+MG Specimen Type: PLASMA Comment: Specimen received in Lab at: [id number] Ordering Provider: JEVON ZAZUETA Report Released Date/Time: Jun 23, 2024 06:07 PM Reporting Lab: [facility] [address] Performing Lab: [facility] [address] CREATININE 0.8 mg/dL 0.7-1.2 UREA NITROGEN 13 mg/dL 8-26 GLUCOSE 135 mg/dL H 70-100 SODIUM 135 mmol/L L 136-145 POTASSIUM 3.6 mmol/L 3.5-5.1 CHLORIDE 103 mmol/L 98-107 CO2 24 mmol/L 22-29 CALCIUM 9.2 mg/dL 8.4-10.2 MAGNESIUM 1.9 mg/dL 1.6-2.6 ANION GAP 8 mmol/L 5-15 .CREAT EGFR(CKD-EPI) >90 >60 Jun 24, 2024 09:50 AM [facility] CBC Specimen Type: BLOOD Comment: Specimen received in Lab at: 0948 Ordering Provider: JEVON ZAZUETA Report Released Date/Time: Jun 23, 2024 06:07 PM Reporting Lab: [facility] [address] Performing Lab: [facility] [address] WBC 15.5 H 4.0-11.0 RBC 4.93 4.60-6.20 HGB 15.2 g/dL 13.5-17.9 HCT 46.5 41.0-54.0 MCV 94.3 fL 80.0-100.0 MCH 30.8 pg 27.0-33.0 MCHC 32.7 g/dL 32.0-37.5 PLT 223 150-400 MPV 11.4 fL 9.1-13.0 RDW 13.9 11.5-14.5 Jun 23, 2024 07:52 AM [facility] COMPREHENSIVE METABOLIC PANEL+MG Specimen Type: PLASMA No comment entered. Ordering Provider: JEVON ZAZUETA Report Released Date/Time: Jun 22, 2024 05:51 PM Reporting Lab: [facility] [address] Performing Lab: [facility] [address] CREATININE 0.7 mg/dL 0.7-1.2 UREA NITROGEN 16 [...] >60 Jun 23, 2024 07:52 AM [facility] CBC & DIFF Specimen Type: BLOOD Comment: Automated Differential Performed Ordering Provider: JEVON ZAZUETA Report Released Date/Time: Jun 22, 2024 05:51 PM Reporting Lab: [facility] [address] Performing Lab: [facility] [address] WBC 14.9 H 4.0-11.0 RBC 5.09 4.60-6.20 [...] 0.0-0.1 Jun 22, 2024 06:10 PM [facility] COMPREHENSIVE METABOLIC PANEL+MG Specimen Type: PLASMA No comment entered. Ordering Provider: JEVON ZAZUETA Report Released Date/Time: Jun 22, 2024 05:51 PM Reporting Lab: [facility] [address] Performing Lab: [facility] [address] CREATININE 0.7 mg/dL 0.7-1.2 UREA NITROGEN 17 [...] >90 >60 Jun 22, 2024 06:10 PM [facility] CBC Specimen Type: BLOOD No comment entered. Ordering Provider: JEVON ZAZUETA Report Released Date/Time: Jun 22, 2024 05:51 PM Reporting Lab: [facility] [address] Performing Lab: [facility] [address] WBC 16.9 H 4.0-11.0 RBC 5.28 4.60-6.20 HGB 16.9 g/dL 13.5-17.9 HCT 50.4 41.0-54.0 MCV 95.5 fL 80.0-100.0 MCH 32.0 pg 27.0-33.0 MCHC 33.5 g/dL 32.0-37.5 PLT 223 150-400 MPV 10.9 fL 9.1-13.0 RDW 14.0 11.5-14.5 Jun 21, 2024 06:48 PM [facility] URINALYSIS Specimen Type: URINE No comment entered. Ordering Provider: DELIA MARTINEZ Report Released Date/Time: Jun 21, 2024 05:45 PM Reporting Lab: [facility] [address] Performing Lab: [facility] [address] URINE COLOR YELLOW SPECIFIC GRAVITY 1.041 H [...] NEGATIVE Jun 21, 2024 05:34 PM [facility] POC CREATININE Specimen Type: BLOOD No comment entered. Ordering Provider: DELIA MARTINEZ Report Released Date/Time: Jun 21, 2024 06:07 PM Reporting Lab: [facility] [address] Performing Lab: [facility] [address] POC CREATININE 1.1 mg/dL 0.6-1.3 Jun 21, 2024 05:30 PM [facility] POC ABG/LACTATE Specimen Type: VENOUS BLOOD No comment entered. Ordering Provider: DELIA MARTINEZ Report Released Date/Time: Jun 21, 2024 06:07 PM Reporting Lab: [facility] [address] Performing Lab: [facility] [address] POC PH 7.470 H 7.31-7.41 POC PCO2 31.2 mm[Hg] L 41.00-51 .0 0 POC PO2 46 mm[Hg] H 35.0-40.0 POC TCO2 24 mmol/L 24.0-29.0 POC HCO3 22.7 mmol/L L 23.0-28.0 POC BE ECT -1 mmol/L POC SO2 85 H 70-75 POC LACTATE 1.85 mmol/L 0.90-1.70 Jun 21, 2024 05:24 PM [facility] PROTHROMBIN TIME/INR Specimen Type: PLASMA No comment entered. Ordering Provider: DELIA MARTINEZ Report Released Date/Time: Jun 21, 2024 05:30 PM Reporting Lab: [facility] [address] Performing Lab: [facility] [address] .INR 1.2 H 0.8-1.1 .PT 13.9 s H 9.4-12.5 Jun 21, 2024 05:24 PM [facility] LIPASE Specimen Type: PLASMA No comment entered. Ordering Provider: DELIA MARTINEZ Report Released Date/Time: Jun 21, 2024 05:30 PM Reporting Lab: [facility] [address] Performing Lab: [facility] [address] LIPASE 32 U/L <60 Jun 21, 2024 05:24 PM [facility] EXTRA GOLD GEL TUBE Specimen Type: SERUM No comment entered. Ordering Provider: DELIA MARTINEZ Report Released Date/Time: Jun 21, 2024 05:41 PM Reporting Lab: [facility] [address] Performing Lab: [facility] [address] EXTRA GOLD GEL TUBE RECEIVED Jun 21, 2024 05:24 PM [facility] COMPREHENSIVE METABOLIC PANEL+MG Specimen Type: PLASMA No comment entered. Ordering Provider: DELIA MARTINEZ Report Released Date/Time: Jun 21, 2024 05:30 PM Reporting Lab: [facility] [address] Performing Lab: [facility] [address] CREATININE 0.9 mg/dL 0.7-1.2 UREA NITROGEN 29 [...] <0.5 Jun 21, 2024 05:24 PM [facility] CBC & DIFF Specimen Type: BLOOD Comment: Manual Differential Performed Ordering Provider: DELIA MARTINEZ Report Released Date/Time: Jun 21, 2024 05:30 PM Reporting Lab: [facility] [address] Performing Lab: [facility] [address] WBC 21.3 H 4.0-11.0 RBC 5.48 4.60-6.20 [...] Source Jul 17, 2024 11:53 PM 6 [facility] Jul 17, 2024 10:52 PM 8 [facility] Jul 17, 2024 02:47 PM 7 [facility] Jul 17, 2024 07:09 AM 7 [facility] Social History: Smoking Status (Most [...] 2024 08:30 AM [facility] [place] MORE [facility] May 06, 2023 11:30 AM 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 [facility] May 06, 2023 11:30 AM VA-TOBACCO [...] 06:15 PM CHEST 1 VIEW: FLACA WEAVER [id number] -1950 M Exm Date: JUL 18, 2024@18:15 Req Phys: LEISA GOLDEN Pat Loc: 3ES/07-18-2024@19:00 Img Loc: MAIN X-RAY Service: PRIMARY CARE - MED OFF[place] [address] (Case [id number] COMPLETE) CHEST 1 VIEW (RAD Detailed) CPT:85104 Proc Modifiers : PORTABLE EXAM Reason for Study: SOB Clinical History: IS NOT under investigation for COVID-19 or is COVID-19 negative 73 yo with SOB Responsible provider name and phone number to notify for critical findings if other than user placing the order and pager listed below: User placing orders pager: [phone] LAST CREATININE 1.2 (07/17/24) Report Status: Verified Date Reported: JUL 18, 2024 Date Verified: JUL 18, 2024 Rubber Attacher E-Sig:/ES/CARLOS A CUNNINGHAM DO Report: EXAMINATION: CHEST 1 VIEW Reason for Study: SOB [place] IS NOT under investigation for COVID-19 or is COVID-19 negative 73 yo with SOB Responsible provider name and phone number to notify for critical findings if other than user placing the order and pager listed below: User placing orders pager: [phone] LAST CREATININE 1.2 (07/17/24) SOB TECHNIQUE: Single [...] Interpreting Staff: CARLOS A CUNNINGHAM DO, RADIOLOGIST (Rubber Attacher) /KMB CARLOS A CUNNINGHAM [facility] Jul 16, 2024 07:[address] [facility] [address] ABDOMEN/PELVIS: FLACA WEAVER [id number] -1950 M Exm Date: JUL 16, 2024@07:49 Req Phys: JATINDER CABRERA Loc: 07-17-2024@09:02 Img Loc: OUTSOURCE CT Service: Unknown (Case [id number] COMPLETE) NON PA CT ABDOMEN/PELVIS (CT Detailed) CPT:77389 Reason for Study: outside study Clinical History: [...] FILED* [facility] Jul 13, 2024 09:[address] [facility] [address] ABDOMEN/PELVIS: FLACA WEAVER [id number] -1950 M Exm Date: JUL 13, 2024@09:41 Req Phys: JATINDER CABRERA Pat Loc: 07-17-2024@09:08 Img Loc: OUTSOURCE CT Service: Unknown (Case [id number] COMPLETE) NON PA CT ABDOMEN/PELVIS (CT Detailed) CPT:41680 Reason for Study: outside study Clinical History: [...] FILED* [facility] Jul 08, 2024 10:09 AM CHEST 2 VIEWS PA AND LAT: FLACA WEAVER [id number] -1950 M Exm Date: JUL 08, 2024@10:09 Req Phys: KATELYNN PERSON Pat Loc: [facility]/07-08-2024@11:49 Img Loc: MAIN X-RAY Service: [facility] [place] [address] (Case 24 COMPLETE) CHEST 2 VIEWS PA AND LAT (RAD Detailed) CPT:68134 Reason for Study: Uptrending WBC, POD 5 [...] 08, 2024 Date Verified: JUL 08, 2024 Rubber Attacher E-Sig: Report: CHEST 2 VIEWS PA [...] cardiopulmonary disease. READING PHYSICIAN: Sarbjit Vaughn M.D. -[phone] 07/08/2024 12:46 [facility] National Teleradiology Program [phone] (For Medical Practitioner Use Only) Attention Patients / Veterans: If you have questions or concerns about these test results, please contact your ordering provider or primary care team. Primary Interpreting Staff: RADIOLOGY,OUTSIDE SERVICE, Staff Physician / RADIOLOGY,OUTSIDE SERVICE [facility] Jul 08, 2024 10:[address] (AP) ABDOMEN/PELVIS W CONTRAST: FLACA WEAVER [id number] -1950 M Exm Date: JUL 08, 2024@10:00 Req Phys: KATELYNN PERSON Loc: 2KG/07-08-2024@12:07 Img Loc: CT IMAGING Service: [facility] [place] [address] (Case [id number] COMPLETE) CT (AP) ABDOMEN/PELVIS W CONTRAST(CT Detailed) CPT:98515 Contrast Media : Non-ionic Iodinated Reason for [...] PLASMA .CREAT EGFR(CKD-E >90 Ref: >=60 Allergies: ([place] only) TERAZOSIN (Mar 13, 2015) Report Status: Verified Date Reported: JUL 08, 2024 Date Verified: JUL 08, 2024 Rubber Attacher E-Sig: Report: CT (AP) ABDOMEN/PELVIS W [...] as noted above READING PHYSICIAN: Celestino Blanc -[phone] 07/08/2024 13:04 EST [facility] National Teleradiology Program [phone] (For Medical Practitioner Use Only) Attention Patients / Veterans: If you have questions or concerns about these test results, please contact your ordering provider or primary care team. Primary Interpreting Staff: RADIOLOGY,OUTSIDE SERVICE, Staff Physician / RADIOLOGY,OUTSIDE SERVICE [facility] Jun 22, 2024 11:49 AM ABSCESS DRAIN PLACEMENT PERITONEAL (P): FLACA WEAVER [id number] -1950 M Exm Date: JUN 22, 2024@11:49 Req Phys: ADINAANGELA Mcfarlane Pat [facility]: [facility]/06-22-2024@17:14 Img Loc: INTERVENTIONAL RADIOLOGY Service: [facility] [place], [place] [address] (Case [id number] COMPLETE) IR PERITONEAL/RETROPERITONEAL PER(ANI Detailed) CPT:88120 Reason for Study: diverticulitis with abscess (Case 3570 COMPLETE) IR MOD SEDATION 10-22 MIN (ANI Detailed) CPT:23741 Clinical History: [place] IS NOT under investigation for COVID-19 or is COVID-19 negative 73 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 please place abscess drain. Contact number for responsible provider who can be reached for any questions or notifications of critical findings: [phone] n/a LAST CREATININE 0.9 (06/21/24) Report Status: Verified Date Reported: JUN 22, 2024 Date Verified: JUN 22, 2024 Rubber Attacher E-Sig:/ES/LISA PENDLETON MD Report: PROCEDURES: Placement [...] Using real-time CT fluoroscopy, a 5 [place] centesis catheter was advanced into the collection [...] Interpreting Staff: LISA PENDLETON MD, RADIOLOGIST (Rubber Attacher) /JRLISA [facility] Jun 22, 2024 11:[address] NEEDLE PLACEMENT (P): FLACA WEAVER [id number] -1950 M Exm Date: JUN 22, 2024@11:48 Req Phys: ANGELA HOLDEN [facility] Loc: [facility]/06-22-2024@17:14 Img Loc: CT IMAGING Service: [facility] [place] [address] (Case [id number] COMPLETE) CT SCAN FOR NEEDLE PLACEMENT (CT Detailed) CPT:80295 Reason for Study: l pelvic abscess drain Clinical History: Report Status: Verified Date Reported: JUN 22, 2024 Date Verified: JUN 22, 2024 Rubber Attacher E-Sig:/ES/LISA PENDLETON MD Report: PROCEDURES: Placement [...] Using real-time CT fluoroscopy, a 5 [place] [employer] catheter was advanced into the collection in [...] Interpreting Staff: LISA PENDLETON MD, RADIOLOGIST (Rubber Attacher) /JRT LISA PENDLETON [facility] Jun 21, 2024 06:[address] (AP) ABDOMEN/PELVIS (P): FLACA WEAVER [id number] -1950 M Ex Date: JUN 21, 2024@18:09 Req Phys: DELIA MARTINEZ Loc: [facility] EMERGENCY DEPT WALK-IN (Re Img Loc: CT IMAGING Service: Unknown [place] [address] (Case [id number] COMPLETE) CT (AP) ABDOMEN/PELVIS W CONTRAST(CT Detailed) CPT:01457 Contrast Media : Non-ionic Iodinated Reason for [...] PLASMA .CREAT EGFR(CKD-E >90 Ref: >=60 Allergies: ([place] only) TERAZOSIN (Mar 13, 2015) Defer to [...] 21, 2024 Date Verified: JUN 21, 2024 Rubber Attacher E-Sig:/ES/CARLOS A CUNNINGHAM DO Report: EXAMINATION: CT [...] Interpreting Staff: CARLOS A CUNNINGHAM DO, RADIOLOGIST (Rubber Attacher) /CARLOS A ROWELL [facility] Pathology [...] [facility] [CLIA# [id number]] [place] [address] Accession [UID]: [id number] [[id number]] Received: Jul 16, 2024@14:41 Collection sample: BLOOD Collection date: Jul 16, 2024 14:07 Provider: LEISA GOLDEN Comment on specimen: Manish [place], RECEIVED 2 BLOOD CULTURE BOTTLES Test(s) ordered: CULTURE & SUSCEPTIBILITY...... completed: Jul 22, 2024 * BACTERIOLOGY FINAL REPORT => Jul 22, 2024 13:39 TECH CODE: [id number] CULTURE RESULTS: NO GROWTH 5 DAYS Bacteriology Remark(s): THIS REPORT IS FINAL =--=--=--=--=--=--=--=--=--= --=--=--=--=--=--=--=--=--=- -=--=--=--=--=--=--=-- Performing Laboratory: Bacteriology Report Performed By: [facility] [CLIA# [id number]] [place] [address] [facility] Jul 16, 2024 01:54 PM LR MICROBIOLOGY RE PORT: Reporting Lab: [facility] [CLIA# [id number]] [place] [address] Accession [UID]: [id number] [[id number]] Received: Jul 16, 2024@14:41 Collection sample: BLOOD Collection date: Jul 16, 2024 13:54 Provider: LEISA GOLDEN Comment on specimen: L AC, RECEIVED 2 BLOOD CULTURE BOTTLES Test(s) ordered: CULTURE & SUSCEPTIBILITY...... completed: Jul 22, 2024 * BACTERIOLOGY FINAL REPORT => Jul 22, 2024 13:39 TECH CODE: [id number] CULTURE RESULTS: NO GROWTH 5 DAYS Bacteriology Remark(s): THIS REPORT IS FINAL =--=--=--=--=--=--=--=--=--= --=--=--=--=--=--=--=--=--=- -=--=--=--=--=--=--=-- Performing Laboratory: Bacteriology Report Performed By: [facility] [CLIA# [id number]] [place] [address] [facility] Jul 03, 2024 05:59 AM LR SURGICAL PATHOL OGY REPORT: LOCAL TITLE: LR SURGICAL PATHOLOGY REPORT STANDARD TITLE: PATHOLOGY REPORT DATE OF NOTE: JUL 06, 2024@10:40:48 ENTRY DATE: JUL 06, 2024@10:40:48 AUTHOR: EDUARDO PALOMARES EXP COSIGNER: URGENCY: STATUS: COMPLETED $APHDR Reporting Lab: [facility] [CLIA# [id number]] [place] [address] - - - - - - - [...] - PATHOLOGY REPORT Accession No. [id number] - - - - - - - [...] - PATHOLOGY REPORT Accession No. [id number] - - - - - - - [...] Second circumferential surgical margin, en face; E-F: Child Care Development Specialist diverticula; G: Child Care Development Specialist section of mesentery; H: Random physician representative section of additional adipose tissue fragment. [...] One colonic tissue ring, bisected transversely. [facility]: Microscopic examination performed. DIAGNOSIS: 1. Colon, sigmoid, sigmoidectomy-- - Diverticulosis with perforation and focal abscess formation 2. Colon, anastomotic rings, excision-- - Viable colonic mucosa without diagnostic abnormality /es/ EDUARDO PALOMARES MD STAFF PATHOLOGIST Signed Jul 06, 2024@10:40 Performing Laboratory: Surgical Pathology Report Performed By: [facility] [CLIA# [id number]] [place] [address] $FTR - - - - - - [...] - - MEGFLACA LOBO STANDARD FORM 515 ID:[id number] SEX:M :1950 AGE: 73 LOC:65232 ADM:Jun DX:DIVERTICULITIS PCP: Jatinder Cabrera /alexi/ EDUARDO PALOMARES MD STAFF PATHOLOGIST Signed: 07/06/2024 10:40 EDUARDO PALOMARES [facility] Jun 22, 2024 01:15 PM LR MICROBIOLOGY RE PORT: Reporting Lab: [facility] [CLIA# [id number]] [place] [address] Accession [UID]: [id number] [[id number]] Received: Jun 22, 2024@13:38 Collection sample: FLUID Collection date: Jun 22, 2024 13:15 Provider: ANGELA HOLDEN Comment on specimen: LLQ ABSCESS, RECEIVED IN ANAEROBIC TRANSPORT VIAL Test(s) ordered: GRAM STAIN.................... completed: Jun 22, 2024 15:03 CULTURE & SUSCEPTIBILITY...... completed: Jun 25, 2024 * BACTERIOLOGY FINAL REPORT => Jun 25, 2024 10:56 TECH CODE: [id number] GRAM STAIN: DIRECT SMEAR of specimen before [...] [facility] [CLIA# [id number]] [place] [address] [facility] Jun 22, 2024 01:15 PM LR MICROBIOLOGY RE PORT: Reporting Lab: [facility] [CLIA# [id number]] [place] [address] Accession [UID]: [id number] [[id number]] Received: Jun 22, 2024@13:38 Collection sample: FLUID Collection date: Jun 22, 2024 13:15 Provider: ANGELA HOLDEN Comment on specimen: LLQ ABSCESS, RECEIVED IN ANAEROBIC TRANSPORT VIAL Test(s) ordered: ANAEROBIC CULTURE............. completed: Jun 28, 2024 * BACTERIOLOGY FINAL REPORT => Jun 28, 2024 10:08 TECH CODE: [id number] CULTURE RESULTS: HEAVY GROWTH MIXED ANAEROBES Comment: [...] [facility] [CLIA# [id number]] [place] [address] [facility] Jun 21, 2024 06:12 PM LR MICROBIOLOGY RE PORT: Reporting Lab: [facility] [IA# [id number]] [place] [address] Accession [UID]: [id number] [[id number]] Received: Jun 21, 2024@18:12 Collection sample: BLOOD [...] [facility] [CLIA# [id number]] [place] [address] [facility] Jun 21, 2024 06:11 PM LR MICROBIOLOGY RE PORT: Reporting Lab: [facility] [CLIA# [id number]] [place] [address] Accession [UID]: [id number] [[id number]] Received: Jun 21, 2024@18:11 Collection sample: BLOOD [...] [facility] [CLIA# [id number]] [place] [address] [facility]
--- OUTSIDE RECORDS SUMMARY | 2024-08-01 07:57 | XMS_ITS ---
[place] DAILY HOSPITALIZATION DATA [facility] HCS Encounter Summary Created on: August 01, 2024 MEG FLACADARCI LOBO : 1950 Sex: Male Author Name [facility] [place] [facility] [place] [facility] [place] Address [address] [place] [address] Care Team Providers Care Mat Cutter Name Role Phone JATINDER CABRERA Primary Care [...] PART A Sep 29, 2016 PART A [id number] [phone] JUDY WEAVER PATIENT Selected Encounter This section includes the information on record at [place] for the Encounter. Date/Time Encounter Type Encounter Description Reason Pro vider Source Jul 17, 2024 12:39 PM Inpatient Visit DAILY HOSPITALIZATION DATA IHE [...] Chemi stry Order URINALYSIS URINE WC ONCE [facility] Jun 12, 2024 12:00 AM Laboratory - Chemi stry Order BNP PLASMA SP ONCE [facility] Jun 21, 2024 05:45 PM Laboratory - Blood Bank Order TYPE & SCREEN - LAB BLOOD WC [facility] Jul 03, 2024 12:00 AM Laboratory - Blood Bank Order TYPE & SCREEN - LAB BLOOD WC [facility] Jul 16, 2024 12:00 AM Laboratory - Chemi stry Order CBC BLOOD SP ONCE [facility] Jul 17, 2024 12:00 AM Laboratory - Chemi stry Order BASIC METABOLIC PANEL+MG PLASMA SP ONCE [facility] Lab Results: +/- 30 days of [...] Range Comment Jul 21, 2024 10:38 AM [facility] BASIC METABOLIC PANEL+MG Specimen Type: PLASMA No comment entered. Ordering Provider: SARAI GOLDEN Report Released Date/Time: Jul 20, 2024 06:50 PM Reporting Lab: [facility] [address] Performing Lab: [facility] [address] CREATININE 0.8 mg/dL 0.7-1.2 UREA NITROGEN 31 mg/dL H 8-26 GLUCOSE 120 mg/dL H 70-100 SODIUM 125 mmol/L L 136-145 POTASSIUM 4.4 mmol/L 3.5-5.1 CHLORIDE 100 mmol/L 98-107 CO2 17 mmol/L L 22-29 CALCIUM 9.6 mg/dL 8.4-10.2 MAGNESIUM 1.9 mg/dL 1.6-2.6 ANION GAP 8 mmol/L 5-15 .CREAT EGFR(CKD-EPI) >90 >60 Jul 21, 2024 10:38 AM [facility] CBC Specimen Type: BLOOD No comment entered. Ordering Provider: SARAI GOLDEN Report Released Date/Time: Jul 20, 2024 06:50 PM Reporting Lab: [facility] [address] Performing Lab: [facility] [address] WBC 16.0 H 4.0-11.0 RBC 5.16 4.60-6.20 HGB 15.8 g/dL 13.5-17.9 HCT 45.5 41.0-54.0 MCV 88.2 fL 80.0-100.0 MCH 30.6 pg 27.0-33.0 MCHC 34.7 g/dL 32.0-37.5 PLT 428 H 150-400 MPV 10.8 fL 9.1-13.0 RDW 13.6 11.5-14.5 Jul 20, 2024 01:00 PM [facility] SODIUM,URINE RANDOM Specimen Type: URINE No comment entered. Ordering Provider: SARAI GOLDEN Report Released Date/Time: Jul 20, 2024 08:22 AM Reporting Lab: [facility] [address] Performing Lab: [facility] [address] SODIUM,URINE RANDOM <20 mmol/L Jul 20, 2024 01:00 PM [facility] OSMOLALITY,URINE Specimen Type: URINE No comment entered. Ordering Provider: SARAI GOLDEN Report Released Date/Time: Jul 20, 2024 08:22 AM Reporting Lab: [facility] [address] Performing Lab: [facility] [address] OSMOLALITY,URIN E 648 mosm/kg 500-800 Jul 20, 2024 06:45 AM [facility] BASIC METABOLIC PANEL+MG Specimen Type: PLASMA No comment entered. Ordering Provider: SARAI GOLDEN Report Released Date/Time: Jul 19, 2024 06:13 PM Reporting Lab: [facility] [address] Performing Lab: [facility] [address] CREATININE 0.8 mg/dL 0.7-1.2 UREA NITROGEN 36 mg/dL H 8-26 GLUCOSE 111 mg/dL H 70-100 SODIUM 121 mmol/L L 136-145 POTASSIUM 4.1 mmol/L 3.5-5.1 CHLORIDE 99 mmol/L 98-107 CO2 14 mmol/L L 22-29 CALCIUM 9.5 mg/dL 8.4-10.2 MAGNESIUM 1.8 mg/dL 1.6-2.6 ANION GAP 8 mmol/L 5-15 .CREAT EGFR(CKD-EPI) >90 >60 Jul 20, 2024 06:43 AM [facility] CBC & DIFF Specimen Type: BLOOD Comment: Automated Differential Performed Ordering Provider: SARAI GOLDEN Report Released Date/Time: Jul 19, 2024 06:13 PM Reporting Lab: [facility] [address] Performing Lab: [facility] [address] WBC 16.6 H 4.0-11.0 RBC 4.96 4.60-6.20 [...] H 0.0-0.1 Jul 20, 2024 05:30 AM [facility] OSMOLALITY,SERUM Specimen Type: SERUM No comment entered. Ordering Provider: SARAI GOLDEN Report Released Date/Time: Jul 20, 2024 09:47 AM Reporting Lab: [facility] [address] Performing Lab: [facility] [address] OSMOLALITY,SERU M 266 mosm/kg L 276-305 Jul 19, 2024 08:57 AM [facility] BASIC METABOLIC PANEL+MG Specimen Type: PLASMA No comment entered. Ordering Provider: SARAI GOLDEN Report Released Date/Time: Jul 18, 2024 10:24 PM Reporting Lab: [facility] [address] Performing Lab: [facility] [address] CREATININE 1.0 mg/dL 0.7-1.2 UREA NITROGEN 40 mg/dL H 8-26 GLUCOSE 104 mg/dL H 70-100 SODIUM 129 mmol/L L 136-145 POTASSIUM 3.3 mmol/L L 3.5-5.1 CHLORIDE 104 mmol/L 98-107 CO2 16 mmol/L L 22-29 CALCIUM 8.0 mg/dL L 8.4-10.2 MAGNESIUM 1.7 mg/dL 1.6-2.6 ANION GAP 9 mmol/L 5-15 .CREAT EGFR(CKD-EPI) 80 >60 Jul 19, 2024 08:57 AM [facility] CBC Specimen Type: BLOOD No comment entered. Ordering Provider: SARAI GOLDEN Report Released Date/Time: Jul 18, 2024 10:24 PM Reporting Lab: [facility] [address] Performing Lab: [facility] [address] WBC 17.3 H 4.0-11.0 RBC 4.83 4.60-6.20 HGB 14.8 g/dL 13.5-17.9 HCT 42.6 41.0-54.0 MCV 88.2 fL 80.0-100.0 MCH 30.6 pg 27.0-33.0 MCHC 34.7 g/dL 32.0-37.5 PLT 456 H 150-400 MPV 10.8 fL 9.1-13.0 RDW 13.7 11.5-14.5 Jul 17, 2024 06:55 PM [facility] PHOSPHORUS Specimen Type: PLASMA No comment entered. Ordering Provider: SARAI GOLDEN Report Released Date/Time: Jul 17, 2024 01:54 PM Reporting Lab: [facility] [address] Performing Lab: [facility] [address] PHOSPHORUS 2.9 mg/dL 2.3-4.3 Jul 17, 2024 06:55 PM [facility] BASIC METABOLIC PANEL+MG Specimen Type: PLASMA No comment entered. Ordering Provider: SARAI GOLDEN Report Released Date/Time: Jul 17, 2024 01:54 PM Reporting Lab: [facility] [address] Performing Lab: [facility] [address] CREATININE 1.2 mg/dL 0.7-1.2 UREA NITROGEN 62 mg/dL H 8-26 GLUCOSE 116 mg/dL H 70-100 SODIUM 128 mmol/L L 136-145 POTASSIUM 3.8 mmol/L 3.5-5.1 CHLORIDE 100 mmol/L 98-107 CO2 16 mmol/L L 22-29 CALCIUM 9.3 mg/dL 8.4-10.2 MAGNESIUM 2.1 mg/dL 1.6-2.6 ANION GAP 12 mmol/L 5-15 .CREAT EGFR(CKD-EPI) 64 >60 Jul 17, 2024 07:00 AM [facility] CBC & DIFF Specimen Type: BLOOD Comment: Manual Differential Performed Ordering Provider: SARAI GOLDEN Report Released Date/Time: Jul 16, 2024 04:52 PM Reporting Lab: [facility] [address] Performing Lab: [facility] [address] WBC 18.9 H 4.0-11.0 RBC 5.55 4.60-6.20 [...] MORPHOLOGY PRESENT Jul 17, 2024 07:00 AM [facility] ALBUMIN Specimen Type: PLASMA No comment entered. Ordering Provider: SARAI GOLDEN Report Released Date/Time: Jul 16, 2024 12:12 PM Reporting Lab: [facility] [address] Performing Lab: [facility] [address] ALBUMIN 4.3 g/dL 3.5-5.0 Jul 17, 2024 07:00 AM [facility] COMPREHENSIVE METABOLIC PANEL+MG Specimen Type: PLASMA No comment entered. Ordering Provider: SARAI GOLDEN Report Released Date/Time: Jul 16, 2024 04:52 PM Reporting Lab: [facility] [address] Performing Lab: [facility] [address] CREATININE 1.3 mg/dL H 0.7-1.2 UREA NITROGEN [...] L >60 Jul 16, 2024 07:10 PM [facility] LACTIC ACID Specimen Type: PLASMA No comment entered. Ordering Provider: SARAI GOLDEN Report Released Date/Time: Jul 16, 2024 12:12 PM Reporting Lab: [facility] [address] Performing Lab: [facility] [address] LACTIC ACID 0.9 mmol/L 0.5-2.2 Jul 16, 2024 02:14 PM [facility] MRSA SURVL NARES DNA Specimen Type: NARES No comment entered. Ordering Provider: SARAI GOLDEN Report Released Date/Time: Jul 16, 2024 12:12 PM Reporting Lab: [facility] [address] Performing Lab: [facility] [address] MRSA SURVL NARES DNA NEGATIVE Negative Jul 16, 2024 02:10 PM [facility] LACTIC ACID Specimen Type: PLASMA No comment entered. Ordering Provider: SARAI GOLDEN Report Released Date/Time: Jul 16, 2024 12:12 PM Reporting Lab: [facility] [address] Performing Lab: [facility] [address] LACTIC ACID 0.9 mmol/L 0.5-2.2 Jul 16, 2024 02:08 PM [facility] COMPREHENSIVE METABOLIC PANEL+MG Specimen Type: PLASMA No comment entered. Ordering Provider: SARAI GOLDEN Report Released Date/Time: Jul 16, 2024 12:12 PM Reporting Lab: [facility] [address] Performing Lab: [facility] [address] CREATININE 2.0 mg/dL H 0.7-1.2 UREA NITROGEN [...] L >60 Jul 16, 2024 02:08 PM [facility] CBC & DIFF Specimen Type: BLOOD Comment: Manual Differential Performed Ordering Provider: SARAI GOLDEN Report Released Date/Time: Jul 16, 2024 12:12 PM Reporting Lab: [facility] [address] Performing Lab: [facility] [address] WBC 19.7 H 4.0-11.0 RBC 5.39 4.60-6.20 [...] MORPHOLOGY PRESENT Jul 10, 2024 07:16 AM [facility] PHOSPHORUS Specimen Type: PLASMA No comment entered. Ordering Provider: JUANCARLOS ECHOLS Report Released Date/Time: Jul 09, 2024 12:23 PM Reporting Lab: [facility] [address] Performing Lab: [facility] [address] PHOSPHORUS 3.0 mg/dL 2.3-4.3 Jul 10, 2024 07:16 AM [facility] BASIC METABOLIC PANEL+MG Specimen Type: PLASMA No comment entered. Ordering Provider: JUANCARLOS ECHOLS S Report Released Date/Time: Jul 09, 2024 12:23 PM Reporting Lab: [facility] [address] Performing Lab: [facility] [address] CREATININE 0.7 mg/dL 0.7-1.2 UREA NITROGEN 27 mg/dL H 8-26 GLUCOSE 104 mg/dL H 70-100 SODIUM 133 mmol/L L 136-145 POTASSIUM 4.3 mmol/L 3.5-5.1 CHLORIDE 102 mmol/L 98-107 CO2 19 mmol/L L 22-29 CALCIUM 10.1 mg/dL 8.4-10.2 MAGNESIUM 1.9 mg/dL 1.6-2.6 ANION GAP 12 mmol/L 5-15 .CREAT EGFR(CKD-EPI) >90 >60 Jul 10, 2024 07:15 AM [facility] CBC Specimen Type: BLOOD No comment entered. Ordering Provider: JUANCARLOS ECHOLS Report Released Date/Time: Jul 09, 2024 12:23 PM Reporting Lab: [facility] [address] Performing Lab: [facility] [address] WBC 18.8 H 4.0-11.0 RBC 5.08 4.60-6.20 HGB 15.9 g/dL 13.5-17.9 HCT 46.8 41.0-54.0 MCV 92.1 fL 80.0-100.0 MCH 31.3 pg 27.0-33.0 MCHC 34.0 g/dL 32.0-37.5 PLT 479 H 150-400 MPV 10.2 fL 9.1-13.0 RDW 13.7 11.5-14.5 Jul 09, 2024 07:08 AM [facility] CBC Specimen Type: BLOOD No comment entered. Ordering Provider: QUYNH WEISS Report Released Date/Time: Jul 08, 2024 06:18 PM Reporting Lab: [facility] [address] Performing Lab: [facility] [address] WBC 15.3 H 4.0-11.0 RBC 4.91 4.60-6.20 HGB 15.1 g/dL 13.5-17.9 HCT 45.7 41.0-54.0 MCV 93.1 fL 80.0-100.0 MCH 30.8 pg 27.0-33.0 MCHC 33.0 g/dL 32.0-37.5 PLT 443 H 150-400 MPV 10.0 fL 9.1-13.0 RDW 13.5 11.5-14.5 Jul 08, 2024 10:50 AM [facility] URINALYSIS Specimen Type: URINE No comment entered. Ordering Provider: KATELYNN PERSON Report Released Date/Time: Jul 08, 2024 08:41 AM Reporting Lab: [facility] [address] Performing Lab: [facility] [address] URINE COLOR YELLOW SPECIFIC GRAVITY >1.050 H [...] NEGATIVE NEGATIVE Jul 08, 2024 09:54 AM [facility] CBC Specimen Type: BLOOD Comment: Specimen received in Lab at: [id number] Ordering Provider: JUANCARLOS ECHOLS Report Released Date/Time: Jul 07, 2024 04:49 PM Reporting Lab: [facility] [address] Performing Lab: [facility] [address] WBC 17.5 H 4.0-11.0 RBC 4.88 4.60-6.20 HGB 14.9 g/dL 13.5-17.9 HCT 45.7 41.0-54.0 MCV 93.6 fL 80.0-100.0 MCH 30.5 pg 27.0-33.0 MCHC 32.6 g/dL 32.0-37.5 PLT 472 H 150-400 MPV 10.2 fL 9.1-13.0 RDW 13.7 11.5-14.5 Jul 08, 2024 09:54 AM [facility] PHOSPHORUS Specimen Type: PLASMA Comment: Specimen received in Lab at: [id number] Ordering Provider: JUANCARLOS ECHOLS Report Released Date/Time: Jul 07, 2024 04:49 PM Reporting Lab: [facility] [address] Performing Lab: [facility] [address] PHOSPHORUS 2.6 mg/dL 2.3-4.3 Jul 08, 2024 09:54 AM [facility] BASIC METABOLIC PANEL+MG Specimen Type: PLASMA Comment: Specimen received in Lab at: 0952 Ordering Provider: JUANCARLOS ECHOLS Report Released Date/Time: Jul 07, 2024 04:49 PM Reporting Lab: [facility] [address] Performing Lab: [facility] [address] CREATININE 0.9 mg/dL 0.7-1.2 UREA NITROGEN 26 mg/dL 8-26 GLUCOSE 128 mg/dL H 70-100 SODIUM 134 mmol/L L 136-145 POTASSIUM 3.4 mmol/L L 3.5-5.1 CHLORIDE 100 mmol/L 98-107 CO2 24 mmol/L 22-29 CALCIUM 9.8 mg/dL 8.4-10.2 MAGNESIUM 1.8 mg/dL 1.6-2.6 ANION GAP 10 mmol/L 5-15 .CREAT EGFR(CKD-EPI) >90 >60 Jul 07, 2024 02:00 PM [facility] C DIFF PANEL Specimen Type: FECES No comment entered. Ordering Provider: JEVON ZAZUETA Report Released Date/Time: Jul 07, 2024 12:26 PM Reporting Lab: [facility] [address] Performing Lab: [facility] [address] C DIFF TOX B GENE PCR NEGATIVE Negative Jul 07, 2024 07:41 AM [facility] PHOSPHORUS Specimen Type: PLASMA No comment entered. Ordering Provider: JEVON ZAZUETA Report Released Date/Time: Jul 06, 2024 03:44 PM Reporting Lab: [facility] [address] Performing Lab: [facility] [address] PHOSPHORUS 3.1 mg/dL 2.3-4.3 Jul 07, 2024 07:41 AM [facility] BASIC METABOLIC PANEL+MG Specimen Type: PLASMA No comment entered. Ordering Provider: JEVON ZAZUETA Report Released Date/Time: Jul 06, 2024 03:44 PM Reporting Lab: [facility] [address] Performing Lab: [facility] [address] CREATININE 0.9 mg/dL 0.7-1.2 UREA NITROGEN 20 mg/dL 8-26 GLUCOSE 157 mg/dL H 70-100 SODIUM 136 mmol/L 136-145 POTASSIUM 3.7 mmol/L 3.5-5.1 CHLORIDE 102 mmol/L 98-107 CO2 21 mmol/L L 22-29 CALCIUM 9.8 mg/dL 8.4-10.2 MAGNESIUM 1.9 mg/dL 1.6-2.6 ANION GAP 13 mmol/L 5-15 .CREAT EGFR(CKD-EPI) >90 >60 Jul 07, 2024 07:40 AM [facility] CBC Specimen Type: BLOOD No comment entered. Ordering Provider: JEVON ZAZUETA Report Released Date/Time: Jul 06, 2024 03:44 PM Reporting Lab: [facility] [address] Performing Lab: [facility] [address] WBC 21.2 H 4.0-11.0 RBC 5.09 4.60-6.20 HGB 15.9 g/dL 13.5-17.9 HCT 48.3 41.0-54.0 MCV 94.9 fL 80.0-100.0 MCH 31.2 pg 27.0-33.0 MCHC 32.9 g/dL 32.0-37.5 PLT 500 H 150-400 MPV 10.3 fL 9.1-13.0 RDW 13.6 11.5-14.5 Jul 06, 2024 07:21 AM [facility] CBC Specimen Type: BLOOD No comment entered. Ordering Provider: JEVON ZAZUETA Report Released Date/Time: Jul 05, 2024 01:22 PM Reporting Lab: [facility] [address] Performing Lab: [facility] [address] WBC 18.0 H 4.0-11.0 RBC 4.83 4.60-6.20 HGB 14.6 g/dL 13.5-17.9 HCT 45.5 41.0-54.0 MCV 94.2 fL 80.0-100.0 MCH 30.2 pg 27.0-33.0 MCHC 32.1 g/dL 32.0-37.5 PLT 368 150-400 MPV 10.4 fL 9.1-13.0 RDW 13.6 11.5-14.5 Jul 06, 2024 07:21 AM [facility] PHOSPHORUS Specimen Type: PLASMA No comment entered. Ordering Provider: JEVON ZAZUETA Report Released Date/Time: Jul 05, 2024 01:22 PM Reporting Lab: [facility] [address] Performing Lab: [facility] [address] PHOSPHORUS 3.6 mg/dL 2.3-4.3 Jul 06, 2024 07:21 AM [facility] BASIC METABOLIC PANEL+MG Specimen Type: PLASMA No comment entered. Ordering Provider: JEVON ZAZUETA Report Released Date/Time: Jul 05, 2024 01:22 PM Reporting Lab: [facility] [address] Performing Lab: [facility] [address] CREATININE 0.7 mg/dL 0.7-1.2 UREA NITROGEN 12 mg/dL 8-26 GLUCOSE 108 mg/dL H 70-100 SODIUM 138 mmol/L 136-145 POTASSIUM 3.4 mmol/L L 3.5-5.1 CHLORIDE 104 mmol/L 98-107 CO2 20 mmol/L L 22-29 CALCIUM 9.3 mg/dL 8.4-10.2 MAGNESIUM 1.9 mg/dL 1.6-2.6 ANION GAP 14 mmol/L 5-15 .CREAT EGFR(CKD-EPI) >90 >60 Jul 05, 2024 07:17 AM [facility] MAGNESIUM Specimen Type: PLASMA No comment entered. Ordering Provider: JUANCARLOS ECHOLS S Report Released Date/Time: Jul 04, 2024 09:39 AM Reporting Lab: [facility] [address] Performing Lab: [facility] [address] MAGNESIUM 2.0 mg/dL 1.6-2.6 Jul 05, 2024 07:17 AM [facility] PHOSPHORUS Specimen Type: PLASMA No comment entered. Ordering Provider: JUANCARLOS ECHOLS S Report Released Date/Time: Jul 04, 2024 09:39 AM Reporting Lab: [facility] [address] Performing Lab: [facility] [address] PHOSPHORUS 2.0 mg/dL L 2.3-4.3 Jul 05, 2024 07:17 AM [facility] BASIC METABOLIC PANEL+MG Specimen Type: PLASMA No comment entered. Ordering Provider: JUANCARLOS ECHOLS S Report Released Date/Time: Jul 04, 2024 09:39 AM Reporting Lab: [facility] [address] Performing Lab: [facility] [address] CREATININE 0.7 mg/dL 0.7-1.2 UREA NITROGEN 12 mg/dL 8-26 GLUCOSE 84 mg/dL 70-100 SODIUM 135 mmol/L L 136-145 POTASSIUM 3.8 mmol/L 3.5-5.1 CHLORIDE 104 mmol/L 98-107 CO2 24 mmol/L 22-29 CALCIUM 9.3 mg/dL 8.4-10.2 MAGNESIUM 2.0 mg/dL 1.6-2.6 ANION GAP 7 mmol/L 5-15 .CREAT EGFR(CKD-EPI) >90 >60 Jul 05, 2024 07:16 AM [facility] CBC Specimen Type: BLOOD No comment entered. Ordering Provider: JUANCARLOS ECHOLS S Report Released Date/Time: Jul 04, 2024 09:39 AM Reporting Lab: [facility] [address] Performing Lab: [facility] [address] WBC 18.3 H 4.0-11.0 RBC 4.49 L 4.60-6.20 HGB 14.1 g/dL 13.5-17.9 HCT 43.4 41.0-54.0 MCV 96.7 fL 80.0-100.0 MCH 31.4 pg 27.0-33.0 MCHC 32.5 g/dL 32.0-37.5 PLT 317 150-400 MPV 10.0 fL 9.1-13.0 RDW 13.9 11.5-14.5 Jul 04, 2024 07:17 AM [facility] BASIC METABOLIC PANEL+MG Specimen Type: PLASMA No comment entered. Ordering Provider: GABINO CAMERON Report Released Date/Time: Jul 03, 2024 06:31 PM Reporting Lab: [facility] [address] Performing Lab: [facility] [address] CREATININE 0.7 mg/dL 0.7-1.2 UREA NITROGEN 16 mg/dL 8-26 GLUCOSE 129 mg/dL H 70-100 SODIUM 137 mmol/L 136-145 POTASSIUM 3.7 mmol/L 3.5-5.1 CHLORIDE 107 mmol/L 98-107 CO2 22 mmol/L 22-29 CALCIUM 9.0 mg/dL 8.4-10.2 MAGNESIUM 1.9 mg/dL 1.6-2.6 ANION GAP 8 mmol/L 5-15 .CREAT EGFR(CKD-EPI) >90 >60 Jul 04, 2024 07:17 AM [facility] PHOSPHORUS Specimen Type: PLASMA No comment entered. Ordering Provider: GABINO CAMERON Report Released Date/Time: Jul 03, 2024 06:31 PM Reporting Lab: [facility] [address] Performing Lab: [facility] [address] PHOSPHORUS 2.8 mg/dL 2.3-4.3 Jul 04, 2024 07:16 AM [facility] CBC Specimen Type: BLOOD No comment entered. Ordering Provider: GABINO CAMERON Report Released Date/Time: Jul 03, 2024 06:31 PM Reporting Lab: [facility] [address] Performing Lab: [facility] [address] WBC 20.6 H 4.0-11.0 RBC 4.63 4.60-6.20 HGB 14.2 g/dL 13.5-17.9 HCT 43.4 41.0-54.0 MCV 93.7 fL 80.0-100.0 MCH 30.7 pg 27.0-33.0 MCHC 32.7 g/dL 32.0-37.5 PLT 329 150-400 MPV 10.4 fL 9.1-13.0 RDW 13.8 11.5-14.5 Jul 04, 2024 07:16 AM [facility] CBC & DIFF Specimen Type: BLOOD Comment: Manual Differential Performed Ordering Provider: GABINO CAMERON Report Released Date/Time: Jul 03, 2024 06:31 PM Reporting Lab: [facility] [address] Performing Lab: [facility] [address] WBC 20.6 H 4.0-11.0 RBC 4.63 4.60-6.20 [...] MORPHOLOGY PRESENT Jul 04, 2024 07:15 AM [facility] BNP Specimen Type: PLASMA No comment entered. Ordering Provider: GABINO CAMERON Report Released Date/Time: Jul 03, 2024 06:31 PM Reporting Lab: [facility] [address] Performing Lab: [facility] [address] BNP 292 pg/mL H <99 Jul 03, 2024 10:32 PM [facility] FINGERSTICK GLUCOSE Specimen Type: BLOOD Comment: Save Result Nurse Notified Ordering Provider: KATELYNN PERSON Report Released Date/Time: Jul 03, 2024 10:50 PM Reporting Lab: [facility] [address] Performing Lab: [facility] [address] FINGERSTICK GLUCOSE 126 mg/dL H 70-100 Jul 03, 2024 05:33 PM [facility] FINGERSTICK GLUCOSE Specimen Type: BLOOD Comment: Save Result Nurse Notified Ordering Provider: KATELYNN PERSON Report Released Date/Time: Jul 03, 2024 05:46 PM Reporting Lab: [facility] [address] Performing Lab: [facility] [address] FINGERSTICK GLUCOSE 141 mg/dL H 70-100 Jul 03, 2024 02:31 PM [facility] POC ABG/ELECTROLYTES Specimen Type: ARTERIAL BLOOD Comment: FIO2 = 97% Patient Temp: 36.0 C Sample Type = ARTERIAL Ordering Provider: MAZIN ARREDONDO Report Released Date/Time: Jul 03, 2024 01:48 PM Reporting Lab: [facility] [address] Performing Lab: [facility] [address] POC PH 7.387 7.35-7.45 POC PCO2 34.4 [...] H 80.0-105.0 Jul 03, 2024 01:05 PM [facility] POC ABG/ELECTROLYTES Specimen Type: ARTERIAL BLOOD Comment: FIO2 = 53% Patient Temp: 36.2 C Sample Type = ARTERIAL Ordering Provider: MAZIN ARREDONDO Report Released Date/Time: Jul 03, 2024 01:48 PM Reporting Lab: [facility] [id number] Performing Lab: [facility] [address] POC PH 7.280 L 7.35-7.45 POC PCO2 [...] mm[Hg] 80.0-105.0 Jul 03, 2024 06:15 AM [facility] URINALYSIS Specimen Type: URINE No comment entered. Ordering Provider: MARYBETH POWELL Report Released Date/Time: Jun 12, 2024 04:01 PM Reporting Lab: [facility] [address] Performing Lab: [facility] [address] URINE COLOR YELLOW SPECIFIC GRAVITY 1.031 1.003-1.03 [...] 250 NEGATIVE Jul 03, 2024 06:13 AM [facility] CBC Specimen Type: BLOOD No comment entered. Ordering Provider: MARYBETH POWELL Report Released Date/Time: Jun 12, 2024 03:59 PM Reporting Lab: [facility] [address] Performing Lab: [facility] [address] WBC 15.8 H 4.0-11.0 RBC 5.11 4.60-6.20 HGB 16.1 g/dL 13.5-17.9 HCT 49.1 41.0-54.0 MCV 96.1 fL 80.0-100.0 MCH 31.5 pg 27.0-33.0 MCHC 32.8 g/dL 32.0-37.5 PLT 357 150-400 MPV 9.8 fL 9.1-13.0 RDW 13.7 11.5-14.5 Jun 24, 2024 09:50 AM [facility] BASIC METABOLIC PANEL+MG Specimen Type: PLASMA Comment: Specimen received in Lab at: [id number] Ordering Provider: JEVON ZAZUETA Report Released Date/Time: Jun 23, 2024 06:07 PM Reporting Lab: [facility] [phone] Performing Lab: [facility] [address] CREATININE 0.8 mg/dL 0.7-1.2 UREA NITROGEN 13 mg/dL 8-26 GLUCOSE 135 mg/dL H 70-100 SODIUM 135 mmol/L L 136-145 POTASSIUM 3.6 mmol/L 3.5-5.1 CHLORIDE 103 mmol/L 98-107 CO2 24 mmol/L 22-29 CALCIUM 9.2 mg/dL 8.4-10.2 MAGNESIUM 1.9 mg/dL 1.6-2.6 ANION GAP 8 mmol/L 5-15 .CREAT EGFR(CKD-EPI) >90 >60 Jun 24, 2024 09:50 AM [facility] CBC Specimen Type: BLOOD Comment: Specimen received in Lab at: [id number] Ordering Provider: JEVON ZAZUETA Report Released Date/Time: Jun 23, 2024 06:07 PM Reporting Lab: [facility] [address] Performing Lab: [facility] [address] WBC 15.5 H 4.0-11.0 RBC 4.93 4.60-6.20 HGB 15.2 g/dL 13.5-17.9 HCT 46.5 41.0-54.0 MCV 94.3 fL 80.0-100.0 MCH 30.8 pg 27.0-33.0 MCHC 32.7 g/dL 32.0-37.5 PLT 223 150-400 MPV 11.4 fL 9.1-13.0 RDW 13.9 11.5-14.5 Jun 23, 2024 07:52 AM [facility] COMPREHENSIVE METABOLIC PANEL+MG Specimen Type: PLASMA No comment entered. Ordering Provider: JEVON ZAZUETA Report Released Date/Time: Jun 22, 2024 05:51 PM Reporting Lab: [facility] [address] Performing Lab: [facility] [address] CREATININE 0.7 mg/dL 0.7-1.2 UREA NITROGEN 16 [...] >90 >60 Jun 23, 2024 07:52 AM [facility] CBC & DIFF Specimen Type: BLOOD Comment: Automated Differential Performed Ordering Provider: JEVON ZAZUETA Report Released Date/Time: Jun 22, 2024 05:51 PM Reporting Lab: [facility] [address] Performing Lab: [facility] [address] WBC 14.9 H 4.0-11.0 RBC 5.09 4.60-6.20 [...] 0.1 0.0-0.1 Jun 22, 2024 06:10 PM [facility] CBC Specimen Type: BLOOD No comment entered. Ordering Provider: JEVON ZAZUETA Report Released Date/Time: Jun 22, 2024 05:51 PM Reporting Lab: [facility] [address] Performing Lab: [facility] [address] WBC 16.9 H 4.0-11.0 RBC 5.28 4.60-6.20 HGB 16.9 g/dL 13.5-17.9 HCT 50.4 41.0-54.0 MCV 95.5 fL 80.0-100.0 MCH 32.0 pg 27.0-33.0 MCHC 33.5 g/dL 32.0-37.5 PLT 223 150-400 MPV 10.9 fL 9.1-13.0 RDW 14.0 11.5-14.5 Jun 22, 2024 06:10 PM [facility] COMPREHENSIVE METABOLIC PANEL+MG Specimen Type: PLASMA No comment entered. Ordering Provider: JEVON ZAZUETA Report Released Date/Time: Jun 22, 2024 05:51 PM Reporting Lab: [facility] [address] Performing Lab: [facility] [address] CREATININE 0.7 mg/dL 0.7-1.2 UREA NITROGEN 17 [...] >90 >60 Jun 21, 2024 06:48 PM [facility] URINALYSIS Specimen Type: URINE No comment entered. Ordering Provider: DELIA MARTINEZ Report Released Date/Time: Jun 21, 2024 05:45 PM Reporting Lab: [facility] [address] Performing Lab: [facility] [address] URINE COLOR YELLOW SPECIFIC GRAVITY 1.041 H [...] 500 NEGATIVE Jun 21, 2024 05:34 PM [facility] POC CREATININE Specimen Type: BLOOD No comment entered. Ordering Provider: DELIA MARTINEZ Report Released Date/Time: Jun 21, 2024 06:07 PM Reporting Lab: [facility] [address] Performing Lab: [facility] [address] POC CREATININE 1.1 mg/dL 0.6-1.3 Jun 21, 2024 05:30 PM [facility] POC ABG/LACTATE Specimen Type: VENOUS BLOOD No comment entered. Ordering Provider: DELIA MARTINEZ Report Released Date/Time: Jun 21, 2024 06:07 PM Reporting Lab: [facility] [address] Performing Lab: [facility] [address] POC PH 7.470 H 7.31-7.41 POC PCO2 31.2 mm[Hg] L 41.00-51 .0 0 POC PO2 46 mm[Hg] H 35.0-40.0 POC TCO2 24 mmol/L 24.0-29.0 POC HCO3 22.7 mmol/L L 23.0-28.0 POC BE ECT -1 mmol/L POC SO2 85 H 70-75 POC LACTATE 1.85 mmol/L 0.90-1.70 Jun 21, 2024 05:24 PM [facility] PROTHROMBIN TIME/INR Specimen Type: PLASMA No comment entered. Ordering Provider: DELIA MARTINEZ Report Released Date/Time: Jun 21, 2024 05:30 PM Reporting Lab: [facility] [address] Performing Lab: [facility] [address] .INR 1.2 H 0.8-1.1 .PT 13.9 s H 9.4-12.5 Jun 21, 2024 05:24 PM [facility] LIPASE Specimen Type: PLASMA No comment entered. Ordering Provider: DELIA MARTINEZ Report Released Date/Time: Jun 21, 2024 05:30 PM Reporting Lab: [facility] [address] Performing Lab: [facility] [address] LIPASE 32 U/L <60 Jun 21, 2024 05:24 PM [facility] EXTRA GOLD GEL TUBE Specimen Type: SERUM No comment entered. Ordering Provider: DELIA MARTINEZ Report Released Date/Time: Jun 21, 2024 05:41 PM Reporting Lab: [facility] [address] Performing Lab: [facility] [address] EXTRA GOLD GEL TUBE RECEIVED Jun 21, 2024 05:24 PM [facility] COMPREHENSIVE METABOLIC PANEL+MG Specimen Type: PLASMA No comment entered. Ordering Provider: DELIA MARTINEZ Report Released Date/Time: Jun 21, 2024 05:30 PM Reporting Lab: [facility] [address] Performing Lab: [facility] [address] CREATININE 0.9 mg/dL 0.7-1.2 UREA NITROGEN 29 [...] mg/dL <0.5 Jun 21, 2024 05:24 PM [facility] CBC & DIFF Specimen Type: BLOOD Comment: Manual Differential Performed Ordering Provider: DELIA MARTINEZ Report Released Date/Time: Jun 21, 2024 05:30 PM Reporting Lab: [facility] [address] Performing Lab: [facility] [address] WBC 21.3 H 4.0-11.0 RBC 5.48 4.60-6.20 [...] Source Jul 17, 2024 11:[address] [facility] Jul 17, 2024 10:[address] 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 [facility] May 06, 2023 11:30 AM VA-TOBACCO [...] 06:15 PM CHEST 1 VIEW: FLACA WEAVER [id number] -1950 M Exm Date: JUL 18, 2024@18:15 Req Phys: LEISA GOLDEN Pat Loc: 3ES/07-18-2024@19:00 Img Loc: MAIN X-RAY Service: PRIMARY CARE [place] [address] (Case [id number] COMPLETE) CHEST 1 VIEW (RAD Detailed) CPT:20980 Proc Modifiers : PORTABLE EXAM Reason for Study: SOB Clinical History: IS NOT under investigation for COVID-19 or is COVID-19 negative 73 yo with SOB Responsible provider name and phone number to notify for critical findings if other than user placing the order and pager listed below: User placing orders pager: [phone] LAST CREATININE 1.2 (07/17/24) Report Status: Verified Date Reported: JUL 18, 2024 Date Verified: JUL 18, 2024 [employer] E-Sig:/ES/CARLOS A CUNNINGHAM DO Report: EXAMINATION: CHEST 1 VIEW Reason for Study: SOB [place] IS NOT under investigation for COVID-19 or is COVID-19 negative 73 yo with SOB Responsible provider name and phone number to notify for critical findings if other than user placing the order and pager listed below: User placing orders pager: [phone] LAST CREATININE 1.2 (07/17/24) SOB TECHNIQUE: Single [...] Interpreting Staff: CARLOS A CUNNINGHAM DO, RADIOLOGIST (Tire Man) /KMB CARLOS A CUNNINGHAM [facility] Jul 16, 2024 07:49 AM [facility] CT ABDOMEN/PELVIS: FLACA WEAVER [id number] -1950 M Exm Date: JUL 16, 2024@07:49 Req Phys: JATINDER CABRERA Loc: 07-17-2024@09:02 Img Loc: OUTSOURCE CT Service: Unknown (Case [id number] COMPLETE) NON [place] CT ABDOMEN/PELVIS (CT Detailed) CPT:28363 Reason for Study: outside study Clinical History: [...] Code: VERIFIED BY: / *ELECTRONICALLY FILED* [facility] Jul 13, 2024 09:41 AM [facility] CT ABDOMEN/PELVIS: FLACA WEAVER [id number] -1950 M Exm Date: JUL 13, 2024@09:41 Req Phys: JATINDER CABRERA Pat Loc: 07-17-2024@09:08 Img Loc: OUTSOURCE CT Service: Unknown (Case [id number] COMPLETE) NON [place] CT ABDOMEN/PELVIS (CT Detailed) CPT:98236 Reason for Study: outside study Clinical History: [...] Code: VERIFIED BY: / *ELECTRONICALLY FILED* [facility] Jul 08, 2024 10:09 AM CHEST 2 VIEWS PA AND LAT: FLACA WEAVER [id number] -1950 M Exm Date: JUL 08, 2024@10:09 Req Phys: KATELYNN PERSON Pat Loc: [facility]/07-08-2024@11:49 Img Loc: MAIN X-RAY Service: [facility] [address] (Case 24 COMPLETE) CHEST 2 VIEWS PA AND LAT (RAD Detailed) CPT:76756 Reason for Study: Uptrending WBC, POD 5 [...] 08, 2024 Date Verified: JUL 08, 2024 [employer] Man E-Sig: Report: CHEST 2 VIEWS PA AND [...] cardiopulmonary disease. READING PHYSICIAN: Sarbjit Vaughn M.D. -[phone] 07/08/2024 12:46 [facility] National Teleradiology Program [phone] (For Medical Practitioner Use Only) Attention Patients / Veterans: If you have questions or concerns about these test results, please contact your ordering provider or primary care team. Primary Interpreting Staff: RADIOLOGY,OUTSIDE SERVICE, Staff Physician / RADIOLOGY,OUTSIDE SERVICE [facility] Jul 08, 2024 10:[address] (AP) ABDOMEN/PELVIS W CONTRAST: FLACA WEAVER [id number] -1950 M Exm Date: JUL 08, 2024@10:00 Req Phys: KATELYNN PERSON Loc: 2KG/07-08-2024@12:07 Img Loc: CT IMAGING Service: [facility] [address] (Case [id number] COMPLETE) CT (AP) ABDOMEN/PELVIS W CONTRAST(CT Detailed) CPT:16280 Contrast Media : Non-ionic Iodinated [...] .CREAT EGFR(CKD-E >90 Ref: >=60 Allergies: ([place] only) TERAZOSIN (Mar 13, 2015) Report Status: Verified Date Reported: JUL 08, 2024 Date Verified: JUL 08, 2024 [employer] E-Sig: Report: CT (AP) ABDOMEN/PELVIS W CONTRAST [...] as noted above READING PHYSICIAN: Celestino Blanc -[phone] 07/08/2024 13:04 EST [facility] National Teleradiology Program [phone] (For Medical Practitioner Use Only) Attention Patients / Veterans: If you have questions or concerns about these test results, please contact your ordering provider or primary care team. Primary Interpreting Staff: RADIOLOGY,OUTSIDE SERVICE, Staff Physician / RADIOLOGY,OUTSIDE SERVICE [facility] Jun 22, 2024 11:49 AM ABSCESS DRAIN PLACEMENT PERITONEAL (P): FLACA WEAEVR [id number] -1950 M Exm Date: JUN 22, 2024@11:49 Req Phys: ADINAANGELA Mcfarlane Pat Loc: [facility]/06-22-2024@17:14 Img Loc: INTERVENTIONAL RADIOLOGY Service: [facility] [place], [place] [address] (Case [id number] COMPLETE) IR PERITONEAL/RETROPERITONEAL PER(ANI Detailed) CPT:95024 Reason for Study: diverticulitis with abscess (Case 3570 COMPLETE) IR MOD SEDATION 10-22 MIN (ANI Detailed) CPT:29329 Clinical History: [place] IS NOT under investigation for COVID-19 or is COVID-19 negative 73 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 please place abscess drain. Contact number for responsible provider who can be reached for any questions or notifications of critical findings: [phone] n/a LAST CREATININE 0.9 (06/21/24) Report Status: Verified Date Reported: JUN 22, 2024 Date Verified: JUN 22, 2024 [employer] Man E-Sig:/ES/LISA PENDLETON MD Report: PROCEDURES: Placement of [...] Using real-time CT fluoroscopy, a 5 Jamaican A Little Easier Recovery centesis catheter was advanced into the collection [...] Primary Interpreting Staff: LISA PENDLETON MD, RADIOLOGIST (Tire Man) /JRLISA [facility] Jun 22, 2024 11:[address] NEEDLE PLACEMENT (P): FLACA WEAVER [id number] -1950 M Exm Date: JUN 22, 2024@11:48 Req Phys: ANGELA HOLDEN [facility] Loc: [facility]/06-22-2024@17:14 Img Loc: CT IMAGING Service: [facility] [address] (Case [id number] COMPLETE) CT SCAN FOR NEEDLE PLACEMENT (CT Detailed) CPT:45129 Reason for Study: l pelvic abscess drain Clinical History: Report Status: Verified Date Reported: JUN 22, 2024 Date Verified: JUN 22, 2024 T[employer] Man E-Sig:/ES/LISA PENDLETON MD Report: PROCEDURES: Placement of [...] Using real-time CT fluoroscopy, a 5 Jamaican Front Desk HQesis catheter was advanced into the collection in [...] Primary Interpreting Staff: LISA PENDLETON MD, RADIOLOGIST (Tire Man) /JRT LISA PENDLETON [facility] Jun 21, 2024 06:[address] (AP) ABDOMEN/PELVIS (P): FLACA WEAVER [id number] -1950 M Ex Date: JUN 21, 2024@18:09 Req Phys: DELIA MARTINEZ Loc: [facility] WALK-IN (Re Img Loc: CT IMAGING Service: [place] [address] (Case [id number] COMPLETE) CT (AP) ABDOMEN/PELVIS W CONTRAST(CT Detailed) CPT:81703 Contrast Media : Non-ionic Iodinated Reason for [...] .CREAT EGFR(CKD-E >90 Ref: >=60 Allergies: ([place] only) TERAZOSIN (Mar 13, 2015) Defer to [...] 21, 2024 Date Verified: JUN 21, 2024 [employer] Man E-Sig:/ES/CARLOS A CUNNINGHAM DO Report: EXAMINATION: CT [...] Interpreting Staff: CARLOS A CUNNINGHAM DO, RADIOLOGIST (Tire Man) /CARLOS A ROWELL [facility] Pathology Reports: +/- 30 days of [...] PM LR MICROBIOLOGY RE PORT: Reporting Lab: [facility] [CLIA# [id number]] [place] [address] Accession [UID]: [id number] [[id number]] Received: Jul 16, 2024@14:41 Collection sample: BLOOD Collection date: Jul 16, 2024 14:07 Provider: LEISA GOLDEN Comment on specimen: Manish [place], RECEIVED 2 BLOOD CULTURE BOTTLES Test(s) ordered: CULTURE & SUSCEPTIBILITY...... completed: Jul 22, 2024 * BACTERIOLOGY FINAL REPORT => Jul 22, 2024 13:39 TECH CODE: [id number] CULTURE RESULTS: NO GROWTH 5 DAYS Bacteriology Remark(s): THIS REPORT IS FINAL =--=--=--=--=--=--=--=--=--= --=--=--=--=--=--=--=--=--=- -=--=--=--=--=--=--=-- Performing Laboratory: Bacteriology Report Performed By: [facility] [CLIA# [id number]] [place] [address] [facility] Jul 16, 2024 01:54 PM LR MICROBIOLOGY RE PORT: Reporting Lab: [facility] [CLIA# [id number]] [place] [address] Accession [UID]: [id number] [[id number]] Received: Jul 16, 2024@14:41 Collection sample: BLOOD Collection date: Jul 16, 2024 13:54 Provider: LEISA GOLDEN Comment on specimen: L AC, RECEIVED 2 BLOOD CULTURE BOTTLES Test(s) ordered: CULTURE & SUSCEPTIBILITY...... completed: Jul 22, 2024 * BACTERIOLOGY FINAL REPORT => Jul 22, 2024 13:39 TECH CODE: [id number] CULTURE RESULTS: NO GROWTH 5 DAYS Bacteriology Remark(s): THIS REPORT IS FINAL =--=--=--=--=--=--=--=--=--= --=--=--=--=--=--=--=--=--=- -=--=--=--=--=--=--=-- Performing Laboratory: Bacteriology Report Performed By: [facility] [CLIA# [id number]] [place] [address] [facility] Jul 03, 2024 05:59 AM LR SURGICAL PATHOL OGY REPORT: LOCAL TITLE: LR SURGICAL PATHOLOGY REPORT STANDARD TITLE: PATHOLOGY REPORT DATE OF NOTE: JUL 06, 2024@10:40:48 ENTRY DATE: JUL 06, 2024@10:40:48 AUTHOR: EDUARDO PALOMARES EXP COSIGNER: URGENCY: STATUS: COMPLETED $APHDR Reporting Lab: [facility] [CLIA# [id number]] [place] [address] - - - - - - - [...] - PATHOLOGY REPORT Accession No. [id number] - - - - - - - [...] - PATHOLOGY REPORT Accession No. [id number] - - - - - - - [...] Second circumferential surgical margin, en face; E-F: Electronics Inspector diverticula; G: Electronics Inspector section of mesentery; H: Random pharmaceutical service representative section of additional adipose tissue [...] Performing Laboratory: Surgical Pathology Report Performed By: [facility] [CLIA# [id number]] [place] [address] $FTR - - - - - - [...] - - MEGFLACA LOBO STANDARD FORM 515 ID:[id number] SEX:M :1950 AGE: 73 LOC:15223 ADM:Jun DX:DIVERTICULITIS PCP: Jatinder Cabrera /alexi/ EDUARDO PALOMARES MD STAFF PATHOLOGIST Signed: 07/06/2024 10:40 EDUADRO PALOMARES [facility] Jun 22, 2024 01:15 PM LR MICROBIOLOGY RE PORT: Reporting Lab: [facility] [CLIA# [id number]] [place] [address] Accession [UID]: [id number] [[id number]] Received: Jun 22, 2024@13:38 Collection sample: FLUID Collection date: Jun 22, 2024 13:15 Provider: ANGELA HOLDEN Comment on specimen: LLQ ABSCESS, RECEIVED IN ANAEROBIC TRANSPORT VIAL Test(s) ordered: GRAM STAIN.................... completed: Jun 22, 2024 15:03 CULTURE & SUSCEPTIBILITY...... completed: Jun 25, 2024 * BACTERIOLOGY FINAL REPORT => Jun 25, 2024 10:56 TECH CODE: [id number] GRAM STAIN: DIRECT SMEAR of specimen before [...] -=--=--=--=--=--=--=-- Performing Laboratory: Bacteriology Report Performed By: [facility] [CLIA# [id number]] [place] [address] [facility] Jun 22, 2024 01:15 PM LR MICROBIOLOGY RE PORT: Reporting Lab: [facility] [CLIA# [id number]] [place] [address] Accession [UID]: [id number] [[id number]] Received: Jun 22, 2024@13:38 Collection sample: FLUID Collection date: Jun 22, 2024 13:15 Provider: ANGELA HOLDEN Comment on specimen: LLQ ABSCESS, RECEIVED IN ANAEROBIC TRANSPORT VIAL Test(s) ordered: ANAEROBIC CULTURE............. completed: Jun 28, 2024 * BACTERIOLOGY FINAL REPORT => Jun 28, 2024 10:08 TECH CODE: [id number] CULTURE RESULTS: HEAVY GROWTH MIXED ANAEROBES Comment: including the followin+ Bacteroides fragilis 4+ Bacteroides vulgatus 4+ Clostridium innocuum Beta-lactamase negative 4+ Bacteroides caccae 4+ Parvimonas micra 4+ Bacteroides uniformis 4+ Gemella morbillorum 4+ anaerobic small, Gram Positive Rods 4+ Bacteroides thetaiotaomicron Standard workup is now complete. Bacteriology Remark(s): THIS REPORT IS FINAL =--=--=--=--=--=--=--=--=--= --=--=--=--=--=--=--=--=--=- -=--=--=--=--=--=--=-- Performing Laboratory: Bacteriology Report Performed By: [facility] [CLIA# [id number]] [place] [address] [facility] Jun 21, 2024 06:12 PM LR MICROBIOLOGY RE PORT: Reporting Lab: [facility] [IA# [id number]] [place] [address] Accession [UID]: [id number] [[id number]] Received: Jun 21, 2024@18:12 Collection sample: BLOOD [...] -=--=--=--=--=--=--=-- Performing Laboratory: Bacteriology Report Performed By: [facility] [CLIA# [id number]] [place] [address] [facility] Jun 21, 2024 06:11 PM LR MICROBIOLOGY RE PORT: Reporting Lab: [facility] [CLIA# [id number]] [place] [address] Accession [UID]: [id number]] Received: Jun 21, 2024@18:11 Collection sample: BLOOD [...] -=--=--=--=--=--=--=-- Performing Laboratory: Bacteriology Report Performed By: [facility] [CLIA# [id number]] [place] [address] [facility]
--- OUTSIDE RECORDS SUMMARY | 2024-08-01 07:57 | XMS_ITS | Encounter Summary ---
Author Name [facility] Organization [facility] Address [address] [place] [address] Care Team Providers Care Mitten Stitcher Name Role Phone JATINDER CABRERA Primary [...] PART A Sep 29, 2016 PART A [id number] [phone] JUDY WEAVER PATIENT Selected Encounter This section includes the information on record at [facility] for the Encounter. Date/Time Encounter Type Encounter Description Reason Provider Source Jul 16, 2024 01:00 AM Outpatient Encounter ADMIN PAT ACTIVTIES (Molecular TemplatesCT) SYSTEM,CIS-ARK E Encounter Template Text not used by MD [...] LAB BLOOD WC [facility] Jul 16, 2024 12:00 [...] Jul 21, 2024 10:[address] [facility] BASIC METABOLIC PANEL+MG Specimen Type: PLASMA No comment entered. Ordering Provider: SARAI GOLDEN Report Released Date/Time: Jul 20, 2024 06:50 PM Reporting Lab: [facility] [address] Performing Lab: [facility] [address] CREATININE 0.8 mg/dL 0.7-1.2 UREA NITROGEN 31 mg/dL H 8-26 GLUCOSE 120 mg/dL H 70-100 SODIUM 125 mmol/L L 136-145 POTASSIUM 4.4 mmol/L 3.5-5.1 CHLORIDE 100 mmol/L 98-107 CO2 17 mmol/L L 22-29 CALCIUM 9.6 mg/dL 8.4-10.2 MAGNESIUM 1.9 mg/dL 1.6-2.6 ANION GAP 8 mmol/L 5-15 .CREAT EGFR(CKD-EPI) >90 >60 Jul 21, 2024 10:[address] [facility] CBC Specimen Type: BLOOD No comment entered. Ordering Provider: SARAI GOLDEN Report Released Date/Time: Jul 20, 2024 06:50 PM Reporting Lab: [facility] [address] Performing Lab: [facility] [address] WBC 16.0 H 4.0-11.0 RBC 5.16 4.60-6.20 HGB 15.8 g/dL 13.5-17.9 HCT 45.5 41.0-54.0 MCV 88.2 fL 80.0-100.0 MCH 30.6 pg 27.0-33.0 MCHC 34.7 g/dL 32.0-37.5 PLT 428 H 150-400 MPV 10.8 fL 9.1-13.0 RDW 13.6 11.5-14.5 Jul 20, 2024 01:[address] [facility] SODIUM,URINE RANDOM Specimen Type: URINE No comment entered. Ordering Provider: SARAI GOLDEN Report Released Date/Time: Jul 20, 2024 08:22 AM Reporting Lab: [facility] [address] Performing Lab: [facility] [address] SODIUM,URINE RANDOM <20 mmol/L Jul 20, 2024 01:[address] [facility] OSMOLALITY,URINE Specimen Type: URINE No comment entered. Ordering Provider: SARAI GOLDEN Report Released Date/Time: Jul 20, 2024 08:22 AM Reporting Lab: [facility] [address] Performing Lab: [facility] [address] OSMOLALITY,URIN E 648 mosm/kg 500-800 Jul 20, 2024 06:[address] [facility] BASIC METABOLIC PANEL+MG Specimen Type: PLASMA No comment entered. Ordering Provider: SARAI GOLDEN Report Released Date/Time: Jul 19, 2024 06:13 PM Reporting Lab: [facility] [address] Performing Lab: [facility] [address] CREATININE 0.8 mg/dL 0.7-1.2 UREA NITROGEN 36 mg/dL H 8-26 GLUCOSE 111 mg/dL H 70-100 SODIUM 121 mmol/L L 136-145 POTASSIUM 4.1 mmol/L 3.5-5.1 CHLORIDE 99 mmol/L 98-107 CO2 14 mmol/L L 22-29 CALCIUM 9.5 mg/dL 8.4-10.2 MAGNESIUM 1.8 mg/dL 1.6-2.6 ANION GAP 8 mmol/L 5-15 .CREAT EGFR(CKD-EPI) >90 >60 Jul 20, 2024 06:[address] [facility] CBC & DIFF Specimen Type: BLOOD Comment: Automated Differential Performed Ordering Provider: SARAI GOLDEN Report Released Date/Time: Jul 19, 2024 06:13 PM Reporting Lab: [facility] [address] Performing Lab: [facility] [address] WBC 16.6 H 4.0-11.0 RBC 4.96 4.60-6.20 [...] Jul 20, 2024 05:[address] [facility] OSMOLALITY,SERUM Specimen Type: SERUM No comment entered. Ordering Provider: SARAI GOLDEN Report Released Date/Time: Jul 20, 2024 09:47 AM Reporting Lab: [facility] [address] Performing Lab: [facility] [address] OSMOLALITY,SERU M 266 mosm/kg L 276-305 Jul 19, 2024 08:[address] [facility] BASIC METABOLIC PANEL+MG Specimen Type: PLASMA No comment entered. Ordering Provider: SARAI GOLDEN Report Released Date/Time: Jul 18, 2024 10:24 PM Reporting Lab: [facility] [address] Performing Lab: [facility] [address] CREATININE 1.0 mg/dL 0.7-1.2 UREA NITROGEN 40 mg/dL H 8-26 GLUCOSE 104 mg/dL H 70-100 SODIUM 129 mmol/L L 136-145 POTASSIUM 3.3 mmol/L L 3.5-5.1 CHLORIDE 104 mmol/L 98-107 CO2 16 mmol/L L 22-29 CALCIUM 8.0 mg/dL L 8.4-10.2 MAGNESIUM 1.7 mg/dL 1.6-2.6 ANION GAP 9 mmol/L 5-15 .CREAT EGFR(CKD-EPI) 80 >60 Jul 19, 2024 08:[address] [facility] CBC Specimen Type: BLOOD No comment entered. Ordering Provider: SARAI GOLDEN Report Released Date/Time: Jul 18, 2024 10:24 PM Reporting Lab: [facility] [address] Performing Lab: [facility] [address] WBC 17.3 H 4.0-11.0 RBC 4.83 4.60-6.20 HGB 14.8 g/dL 13.5-17.9 HCT 42.6 41.0-54.0 MCV 88.2 fL 80.0-100.0 MCH 30.6 pg 27.0-33.0 MCHC 34.7 g/dL 32.0-37.5 PLT 456 H 150-400 MPV 10.8 fL 9.1-13.0 RDW 13.7 11.5-14.5 Jul 17, 2024 06:[address] [facility] PHOSPHORUS Specimen Type: PLASMA No comment entered. Ordering Provider: SARAI GOLDEN Report Released Date/Time: Jul 17, 2024 01:54 PM Reporting Lab: [facility] [address] Performing Lab: [facility] [address] PHOSPHORUS 2.9 mg/dL 2.3-4.3 Jul 17, 2024 06:[address] [facility] BASIC METABOLIC PANEL+MG Specimen Type: PLASMA No comment entered. Ordering Provider: SARAI GOLDEN Report Released Date/Time: Jul 17, 2024 01:54 PM Reporting Lab: [facility] [address] Performing Lab: [facility] [address] CREATININE 1.2 mg/dL 0.7-1.2 UREA NITROGEN 62 mg/dL H 8-26 GLUCOSE 116 mg/dL H 70-100 SODIUM 128 mmol/L L 136-145 POTASSIUM 3.8 mmol/L 3.5-5.1 CHLORIDE 100 mmol/L 98-107 CO2 16 mmol/L L 22-29 CALCIUM 9.3 mg/dL 8.4-10.2 MAGNESIUM 2.1 mg/dL 1.6-2.6 ANION GAP 12 mmol/L 5-15 .CREAT EGFR(CKD-EPI) 64 >60 Jul 17, 2024 07:[address] [facility] CBC & DIFF Specimen Type: BLOOD Comment: Manual Differential Performed Ordering Provider: SARAI GOLDEN Report Released Date/Time: Jul 16, 2024 04:52 PM Reporting Lab: [facility] [address] Performing Lab: [facility] [address] WBC 18.9 H 4.0-11.0 RBC 5.55 4.60-6.20 [...] Jul 17, 2024 07:[address] [facility] ALBUMIN Specimen Type: PLASMA No comment entered. Ordering Provider: SARAI GOLDEN Report Released Date/Time: Jul 16, 2024 12:12 PM Reporting Lab: [facility] [address] Performing Lab: [facility] [address] ALBUMIN 4.3 g/dL 3.5-5.0 Jul 17, 2024 07:[address] [facility] COMPREHENSIVE METABOLIC PANEL+MG Specimen Type: PLASMA No comment entered. Ordering Provider: SARAI GOLDEN Report Released Date/Time: Jul 16, 2024 04:52 PM Reporting Lab: [facility] [address] Performing Lab: [facility] [address] CREATININE 1.3 mg/dL H 0.7-1.2 UREA NITROGEN [...] Jul 16, 2024 07:[address] [facility] LACTIC ACID Specimen Type: PLASMA No comment entered. Ordering Provider: SARAI GOLDEN Report Released Date/Time: Jul 16, 2024 12:12 PM Reporting Lab: [facility] [address] Performing Lab: [facility] [address] LACTIC ACID 0.9 mmol/L 0.5-2.2 Jul 16, 2024 02:[address] [facility] MRSA SURVL NARES DNA Specimen Type: NARES No comment entered. Ordering Provider: SARAI GOLDEN Report Released Date/Time: Jul 16, 2024 12:12 PM Reporting Lab: [facility] [address] Performing Lab: [facility] [address] MRSA SURVL NARES DNA NEGATIVE Negative Jul 16, 2024 02:[address] [facility] LACTIC ACID Specimen Type: PLASMA No comment entered. Ordering Provider: SARAI GOLDEN Report Released Date/Time: Jul 16, 2024 12:12 PM Reporting Lab: [facility] [address] Performing Lab: [facility] [address] LACTIC ACID 0.9 mmol/L 0.5-2.2 Jul 16, 2024 02:[address] [facility] COMPREHENSIVE METABOLIC PANEL+MG Specimen Type: PLASMA No comment entered. Ordering Provider: SARAI GOLDEN Report Released Date/Time: Jul 16, 2024 12:12 PM Reporting Lab: [facility] [address] Performing Lab: [facility] [address] CREATININE 2.0 mg/dL H 0.7-1.2 UREA NITROGEN [...] Jul 16, 2024 02:[address] [facility] CBC & DIFF Specimen Type: BLOOD Comment: Manual Differential Performed Ordering Provider: SARAI GOLDEN Report Released Date/Time: Jul 16, 2024 12:12 PM Reporting Lab: [facility] [address] Performing Lab: [facility] [address] WBC 19.7 H 4.0-11.0 RBC 5.39 4.60-6.20 [...] 12:23 PM Reporting Lab: [facility] [address] Performing Lab: [facility] [address] PHOSPHORUS 3.0 mg/dL 2.3-4.3 Jul 10, 2024 07:[address] [facility] BASIC METABOLIC PANEL+MG Specimen Type: PLASMA No comment entered. Ordering Provider: JUANCARLOS ECHOLS S Report Released Date/Time: Jul 09, 2024 12:23 PM Reporting Lab: [facility] [address] Performing Lab: [facility] [address] CREATININE 0.7 mg/dL 0.7-1.2 UREA NITROGEN 27 [...] 12:23 PM Reporting Lab: [facility] [address] Performing Lab: [facility] [address] WBC 18.8 H 4.0-11.0 RBC 5.08 4.60-6.20 [...] 06:18 PM Reporting Lab: [facility] [address] Performing Lab: [facility] [address] WBC 15.3 H 4.0-11.0 RBC 4.91 4.60-6.20 [...] 08:41 AM Reporting Lab: [facility] [address] Performing Lab: [facility] [address] URINE COLOR YELLOW SPECIFIC GRAVITY >1.050 H [...] 04:49 PM Reporting Lab: [facility] [address] Performing Lab: [facility] [address] WBC 17.5 H 4.0-11.0 RBC 4.88 4.60-6.20 [...] 04:49 PM Reporting Lab: [facility] [address] Performing Lab: [facility] [address] PHOSPHORUS 2.6 mg/dL 2.3-4.3 Jul 08, 2024 09:[address] [facility] BASIC METABOLIC PANEL+MG Specimen Type: PLASMA Comment: Specimen received in Lab at: [id number] Ordering Provider: JUANCARLOS ECHOLS Report Released Date/Time: Jul 07, 2024 04:49 PM Reporting Lab: [facility] [address] Performing Lab: [facility] [address] CREATININE 0.9 mg/dL 0.7-1.2 UREA NITROGEN 26 [...] 12:26 PM Reporting Lab: [facility] [address] Performing Lab: [facility] [address] C DIFF TOX B GENE PCR NEGATIVE Negative Jul 07, 2024 07:[address] [facility] PHOSPHORUS Specimen Type: PLASMA No comment entered. Ordering Provider: JEVON ZAZUETA Report Released Date/Time: Jul 06, 2024 03:44 PM Reporting Lab: [facility] [address] Performing Lab: [facility] [address] PHOSPHORUS 3.1 mg/dL 2.3-4.3 Jul 07, 2024 07:[address] [facility] BASIC METABOLIC PANEL+MG Specimen Type: PLASMA No comment entered. Ordering Provider: JEVON ZAZUETA Report Released Date/Time: Jul 06, 2024 03:44 PM Reporting Lab: [facility] [address] Performing Lab: [facility] [address] CREATININE 0.9 mg/dL 0.7-1.2 UREA NITROGEN 20 [...] 03:44 PM Reporting Lab: [facility] [address] Performing Lab: [facility] [address] WBC 21.2 H 4.0-11.0 RBC 5.09 4.60-6.20 [...] 01:22 PM Reporting Lab: [facility] [address] Performing Lab: [facility] [address] WBC 18.0 H 4.0-11.0 RBC 4.83 4.60-6.20 [...] 01:22 PM Reporting Lab: [facility] [address] Performing Lab: [facility] [address] PHOSPHORUS 3.6 mg/dL 2.3-4.3 Jul 06, 2024 07:[address] [facility] BASIC METABOLIC PANEL+MG Specimen Type: PLASMA No comment entered. Ordering Provider: JEVON ZAZUETA Report Released Date/Time: Jul 05, 2024 01:22 PM Reporting Lab: [facility] [address] Performing Lab: [facility] [address] CREATININE 0.7 mg/dL 0.7-1.2 UREA NITROGEN 12 [...] 09:39 AM Reporting Lab: [facility] [address] Performing Lab: [facility] [address] MAGNESIUM 2.0 mg/dL 1.6-2.6 Jul 05, 2024 07:[address] [facility] PHOSPHORUS Specimen Type: PLASMA No comment entered. Ordering Provider: JUANCARLOS ECHOLS S Report Released Date/Time: Jul 04, 2024 09:39 AM Reporting Lab: [facility] [address] Performing Lab: [facility] [address] PHOSPHORUS 2.0 mg/dL L 2.3-4.3 Jul 05, 2024 07:[address] [facility] BASIC METABOLIC PANEL+MG Specimen Type: PLASMA No comment entered. Ordering Provider: JUANCARLOS ECHOLS S Report Released Date/Time: Jul 04, 2024 09:39 AM Reporting Lab: [facility] [address] Performing Lab: [facility] [address] CREATININE 0.7 mg/dL 0.7-1.2 UREA NITROGEN 12 [...] 09:39 AM Reporting Lab: [facility] [address] Performing Lab: [facility] [address] WBC 18.3 H 4.0-11.0 RBC 4.49 L [...] 06:31 PM Reporting Lab: [facility] [address] Performing Lab: [facility] [address] CREATININE 0.7 mg/dL 0.7-1.2 UREA NITROGEN 16 [...] 06:31 PM Reporting Lab: [facility] [address] Performing Lab: [facility] [address] PHOSPHORUS 2.8 mg/dL 2.3-4.3 Jul 04, 2024 07:[address] [facility] CBC Specimen Type: BLOOD No comment entered. Ordering Provider: GABINO CAMERON Report Released Date/Time: Jul 03, 2024 06:31 PM Reporting Lab: [facility] [address] Performing Lab: [facility] [address] WBC 20.6 H 4.0-11.0 RBC 4.63 4.60-6.20 [...] 06:31 PM Reporting Lab: [facility] [address] Performing Lab: [facility] [address] WBC 20.6 H 4.0-11.0 RBC 4.63 4.60-6.20 [...] 06:31 PM Reporting Lab: [facility] [address] Performing Lab: [facility] [address] BNP 292 pg/mL H <99 Jul 03, 2024 10:[address] [facility] FINGERSTICK GLUCOSE Specimen Type: BLOOD Comment: Save Result Nurse Notified Ordering Provider: KATELYNN PERSON Report Released Date/Time: Jul 03, 2024 10:50 PM Reporting Lab: [facility] [address] Performing Lab: [facility] [address] FINGERSTICK GLUCOSE 126 mg/dL H 70-100 Jul 03, 2024 05:[address] [facility] FINGERSTICK GLUCOSE Specimen Type: BLOOD Comment: Save Result Nurse Notified Ordering Provider: KATELYNN PERSON Report Released Date/Time: Jul 03, 2024 05:46 PM Reporting Lab: [facility] [address] Performing Lab: [facility] [address] FINGERSTICK GLUCOSE 141 mg/dL H 70-100 Jul 03, 2024 02:[address] [facility] POC ABG/ELECTROLYTES Specimen Type: ARTERIAL BLOOD Comment: FIO2 = 97% Patient Temp: 36.0 C Sample Type = ARTERIAL Ordering Provider: MAZIN ARREDONDO Report Released Date/Time: Jul 03, 2024 01:48 PM Reporting Lab: [facility] [address] Performing Lab: [facility] [address] POC PH 7.387 7.35-7.45 POC PCO2 34.4 [...] 01:48 PM Reporting Lab: [facility] [address] Performing Lab: [facility] [address] POC PH 7.280 L 7.35-7.45 POC PCO2 [...] 04:01 PM Reporting Lab: [facility] [address] Performing Lab: [facility] [address] URINE COLOR YELLOW SPECIFIC GRAVITY 1.031 1.003-1.03 [...] 03:59 PM Reporting Lab: [facility] [address] Performing Lab: [facility] [address] WBC 15.8 H 4.0-11.0 RBC 5.11 4.60-6.20 [...] 06:07 PM Reporting Lab: [facility] [address] Performing Lab: [facility] [address] CREATININE 0.8 mg/dL 0.7-1.2 UREA NITROGEN 13 [...] 06:07 PM Reporting Lab: [facility] [address] Performing Lab: [facility] [address] WBC 15.5 H 4.0-11.0 RBC 4.93 4.60-6.20 [...] 05:51 PM Reporting Lab: [facility] [address] Performing Lab: [facility] [address] CREATININE 0.7 mg/dL 0.7-1.2 UREA NITROGEN 16 [...] 05:51 PM Reporting Lab: [facility] [address] Performing Lab: [facility] [address] WBC 14.9 H 4.0-11.0 RBC 5.09 4.60-6.20 [...] 05:51 PM Reporting Lab: [facility] [address] Performing Lab: [facility] [address] WBC 16.9 H 4.0-11.0 RBC 5.28 4.60-6.20 [...] 05:51 PM Reporting Lab: [facility] [address] Performing Lab: [facility] [address] CREATININE 0.7 mg/dL 0.7-1.2 UREA NITROGEN 17 [...] 05:45 PM Reporting Lab: [facility] [address] Performing Lab: [facility] [address] URINE COLOR YELLOW SPECIFIC GRAVITY 1.041 H [...] 06:07 PM Reporting Lab: [facility] [address] Performing Lab: [facility] [address] POC CREATININE 1.1 mg/dL 0.6-1.3 Jun 21, 2024 05:[address] [facility] POC ABG/LACTATE Specimen Type: VENOUS BLOOD No comment entered. Ordering Provider: DELIA MARTINEZ Report Released Date/Time: Jun 21, 2024 06:07 PM Reporting Lab: [facility] [address] Performing Lab: [facility] [address] POC PH 7.470 H 7.31-7.41 POC PCO2 [...] 05:30 PM Reporting Lab: [facility] [address] Performing Lab: [facility] [address] .INR 1.2 H 0.8-1.1 .PT 13.9 s H 9.4-12.5 Jun 21, 2024 05:[address] [facility] LIPASE Specimen Type: PLASMA No comment entered. Ordering Provider: DELIA MARTINEZ Report Released Date/Time: Jun 21, 2024 05:30 PM Reporting Lab: [facility] [address] Performing Lab: [facility] [address] LIPASE 32 U/L <60 Jun 21, 2024 05:[address] [facility] EXTRA GOLD GEL TUBE Specimen Type: SERUM No comment entered. Ordering Provider: DELIA MARTINEZ Report Released Date/Time: Jun 21, 2024 05:41 PM Reporting Lab: [facility] [address] Performing Lab: [facility] [address] EXTRA GOLD GEL TUBE RECEIVED Jun 21, 2024 05:[address] [facility] COMPREHENSIVE METABOLIC PANEL+MG Specimen Type: PLASMA No comment entered. Ordering Provider: DELIA MARTINEZ Report Released Date/Time: Jun 21, 2024 05:30 PM Reporting Lab: [facility] [address] Performing Lab: [facility] [address] CREATININE 0.9 mg/dL 0.7-1.2 UREA NITROGEN 29 [...] 05:30 PM Reporting Lab: [facility] [address] Performing Lab: [facility] [address] WBC 21.3 H 4.0-11.0 RBC 5.48 4.60-6.20 [...] 16, 2024 12:17 PM Yecenia LOZANO [facility] Social History: Smoking Status (Most current) [...] PM CHEST 1 VIEW: FLACA WEAVER YAMIL [id number] -1950 M Exm Date: JUL 18, 2024@18:15 Req Phys: LEISA GOLDEN Loc: 07-18-2024@19:00 Img Loc: MAIN X-RAY Service: [facility] [place] [address] (Case [id number] COMPLETE) CHEST 1 VIEW (RAD Detailed) CPT:69562 Proc Modifiers : PORTABLE EXAM Reason for Study: SOB Clinical History: [place] IS NOT under investigation for COVID-19 or is COVID-19 negative 73 yo with SOB Responsible provider name and phone number to notify for critical findings if other than user placing the order and pager listed below: User placing orders pager: [phone] LAST CREATININE 1.2 (07/17/24) Report Status: Verified Date Reported: JUL 18, 2024 Date Verified: JUL 18, 2024 Soda Fountain Operator E-Sig:/ES/CARLOS A CUNNINGHAM DO Report: EXAMINATION: CHEST 1 VIEW Reason for Study: SOB [place] IS NOT under investigation for COVID-19 or is COVID-19 negative 73 yo with SOB Responsible provider name and phone number to notify for critical findings if other than user placing the order and pager listed below: User placing orders pager: [phone] LAST CREATININE 1.2 (07/17/24) SOB TECHNIQUE: Single [...] Interpreting Staff: CARLOS A CUNNINGHAM DO, RADIOLOGIST (Soda Fountain Operator) /K[facility] CARLOS A CUNNINGHAM [facility] Jul 16, 2024 07:49 AM [facility] CT ABDOMEN/PELVIS: FLACA WEAVER [id number] -1950 M Exm Date: JUL 16, 2024@07:49 Req Phys: JATINDER CABRERA Loc: 07-17-2024@09:02 Img Loc: OUTSOURCE CT Service: Unknown (Case [id number] COMPLETE) [facility] CT ABDOMEN/PELVIS (CT Detailed) CPT:97167 Reason for Study: outside study Clinical History: [...] VERIFIED BY: / *ELECTRONICALLY FILED* [facility] Jul 13, 2024 09:41 AM [facility] CT ABDOMEN/PELVIS: FLACA WEAVER [id number] -1950 M Exm Date: JUL 13, 2024@09:41 Req Phys: JATINDER CABRERA Loc: 07-17-2024@09:08 Img Loc: OUTSOURCE CT Service: Unknown (Case [id number] COMPLETE) NON MD CT ABDOMEN/PELVIS (CT Detailed) CPT:53952 Reason for Study: outside study Clinical History: [...] VERIFIED BY: / *ELECTRONICALLY FILED* [facility] Jul 08, 2024 10:09 AM CHEST 2 VIEWS PA AND LAT: FLACA WEAVER [id number] -1950 M Exm Date: JUL 08, 2024@10:09 Req Phys: KATELYNN PERSON [facility] Loc: [facility]/07-08-2024@11:49 Img Loc: MAIN X-RAY Service: [place] [address] (Case 24 COMPLETE) CHEST 2 VIEWS PA AND LAT (RAD Detailed) CPT:47025 Reason for Study: Uptrending WBC, POD 5 [...] 08, 2024 Date Verified: JUL 08, 2024 Soda Fountain Operator E-Sig: Report: CHEST 2 VIEWS PA [...] cardiopulmonary disease. READING PHYSICIAN: Sarbjit Vaughn M.D. -[phone] 07/08/2024 12:46 EST [facility] National Teleradiology Program [phone] (For Medical Practitioner Use Only) Attention Patients / Veterans: If you have questions or concerns about these test results, please contact your ordering provider or primary care team. Primary Interpreting Staff: RADIOLOGY,OUTSIDE SERVICE, Staff Physician / RADIOLOGY,OUTSIDE SERVICE [facility] Jul 08, 2024 10:[address] (AP) ABDOMEN/PELVIS W CONTRAST: FLACA WEAVER [id number] -1950 M Exm Date: JUL 08, 2024@10:00 Req Phys: KATELYNN PERSON Pat Loc: [facility]/07-08-2024@12:07 Img Loc: CT IMAGING Service: [place] [address] (Case 22 COMPLETE) CT (AP) ABDOMEN/PELVIS W CONTRAST(CT Detailed) CPT:30088 Contrast Media : Non-ionic Iodinated Reason for [...] .CREAT EGFR(CKD-E >90 Ref: >=60 Allergies: ([place] only) TERAZOSIN (Mar 13, 2015) Report Status: Verified Date Reported: JUL 08, 2024 Date Verified: JUL 08, 2024 Soda Fountain Operator E-Sig: Report: CT (AP) ABDOMEN/PELVIS W [...] as noted above READING PHYSICIAN: Celestino Blanc -[id number] 07/08/2024 13:04 EST [facility] T[facility] [phone] (For Medical Practitioner Use Only) Attention Patients / Veterans: If you have questions or concerns about these test results, please contact your ordering provider or primary care team. Primary Interpreting Staff: RADIOLOGY,OUTSIDE SERVICE, Staff Physician / RADIOLOGY,OUTSIDE SERVICE [facility] Jun 22, 2024 11:49 AM ABSCESS DRAIN PLACEMENT PERITONEAL (P): FLACA WEAVER [id number] -1950 M Exm Date: JUN 22, 2024@11:49 Req Phys: ADINAANGELA Mcfarlane Amanda Loc: [facility]/06-22-2024@17:14 Img Loc: INTERVENTIONAL RADIOLOGY Service: [place] [address] (Case [id number] COMPLETE) IR PERITONEAL/RETROPERITONEAL PER(ANI Detailed) CPT:47050 Reason for Study: diverticulitis with abscess (Case 3570 COMPLETE) IR MOD SEDATION 10-22 MIN (ANI Detailed) CPT:40340 Clinical History: IS NOT under investigation for COVID-19 or is COVID-19 negative 73 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 please place abscess drain. Contact number for responsible provider who can be reached for any questions or notifications of critical findings: [phone] n/a LAST CREATININE 0.9 (06/21/24) Report Status: Verified Date Reported: JUN 22, 2024 Date Verified: JUN 22, 2024 Soda Fountain Operator E-Sig:/ES/LISA PENDLETON MD Report: PROCEDURES: Placement [...] obtained. A pre-procedural Time-Out was performed per [facility] policy. The patient was placed in the supine position on the CT table. Preprocedural scan performed. The suprapubic region/lower abdominal wall was sterilely prepped and draped in the usual fashion.1% lidocaine without epinephrine was used for local anesthesia. Using real-time CT fluoroscopy, a 5 [place] TempoIQ centesis catheter was advanced into the collection in the left pelvis. A wire was coiled in the collection. The tract into the collection was dilated to accommodate the 12 [place] locking pigtail drainage catheter. There was return [...] Primary Interpreting Staff: LISA PENDLETON MD, RADIOLOGIST (Soda Fountain Operator) /JRT LISA PENDLETON [facility] Jun 22, 2024 11:[address] NEEDLE PLACEMENT (P): FLACA WEAVER [id number] -1950 M Exm Date: JUN 22, 2024@11:48 Req Phys: ANGELA HOLDEN [facility] Loc: [facility]/06-22-2024@17:14 Img Loc: CT IMAGING Service: [place] [address] (Case [id number] COMPLETE) CT SCAN FOR NEEDLE PLACEMENT (CT Detailed) CPT:23382 Reason for Study: l pelvic abscess drain Clinical History: Report Status: Verified Date Reported: JUN 22, 2024 Date Verified: JUN 22, 2024 Soda Fountain Operator E-Sig:/ES/LISA PENDLETON MD Report: PROCEDURES: Placement [...] obtained. A pre-procedural Time-Out was performed per [facility] policy. The patient was placed in the supine position on the CT table. Preprocedural scan performed. The suprapubic region/lower abdominal wall was sterilely prepped and draped in the usual fashion.1% lidocaine without epinephrine was used for local anesthesia. Using real-time CT fluoroscopy, a 5 Ecuadorean RedVision Systemesis catheter was advanced into the collection in the left pelvis. A wire was coiled in the collection. The tract into the collection was dilated to accommodate the 12 Ecuadorean locking pigtail drainage catheter. There was return [...] Primary Interpreting Staff: LISA PENDLETON MD, RADIOLOGIST (Soda Fountain Operator) /JRT LISA PENDLETON [facility] Jun 21, 2024 06:[address] (AP) ABDOMEN/PELVIS (P): FLACA WEAVER [id number] -1950 M Exm Date: JUN 21, 2024@18:09 Req Phys: DELIA MARTINEZ Loc: [facility] EMERGENCY DEPT WALK-IN (Re Img Loc: CT IMAGING Service: [place] [address] (Case [id number] COMPLETE) CT (AP) ABDOMEN/PELVIS W CONTRAST(CT Detailed) CPT:31519 Contrast Media : Non-ionic Iodinated Reason for [...] .CREAT EGFR(CKD-E >90 Ref: >=60 Allergies: ([place] only) TERAZOSIN (Mar 13, 2015) Defer to [...] 21, 2024 Date Verified: JUN 21, 2024 Soda Fountain Operator E-Sig:/ALEXI/CARLOS A CUNNINGHAM DO Report: EXAMINATION: [...] Interpreting Staff: CARLOS A CUNNINGHAM DO, RADIOLOGIST (Soda Fountain Operator) /CARLOS A ROWELL [facility] Pathology [...] PORT: Reporting Lab: [facility] [CLIA# [id number]] [place] [address] Accession [UID]: [id number] [[id number]] Received: Jul 16, 2024@14:41 Collection sample: BLOOD Collection date: Jul 16, 2024 14:07 Provider: LEISA GOLDEN Comment on specimen: R AC, RECEIVED 2 BLOOD CULTURE BOTTLES Test(s) ordered: CULTURE & SUSCEPTIBILITY...... completed: Jul 22, 2024 * BACTERIOLOGY FINAL REPORT => Jul 22, 2024 13:39 TECH CODE: [id number] CULTURE RESULTS: NO GROWTH 5 DAYS Bacteriology Remark(s): THIS REPORT IS FINAL =--=--=--=--=--=--=--=--=--= --=--=--=--=--=--=--=--=--=- -=--=--=--=--=--=--=-- Performing Laboratory: Bacteriology Report Performed By: [facility] [CLIA# [id number]] [place] [address] [facility] Jul 16, 2024 01:54 PM LR MICROBIOLOGY RE PORT: Reporting Lab: [facility] [CLIA# [id number]] [place] [address] Accession [UID]: [id number] [[id number]] Received: Jul 16, 2024@14:41 Collection sample: BLOOD Collection date: Jul 16, 2024 13:54 Provider: LEISA GOLDEN Comment on specimen: L AC, RECEIVED 2 BLOOD CULTURE BOTTLES Test(s) ordered: CULTURE & SUSCEPTIBILITY...... completed: Jul 22, 2024 * BACTERIOLOGY FINAL REPORT => Jul 22, 2024 13:39 TECH CODE: [id number] CULTURE RESULTS: NO GROWTH 5 DAYS Bacteriology Remark(s): THIS REPORT IS FINAL =--=--=--=--=--=--=--=--=--= --=--=--=--=--=--=--=--=--=- -=--=--=--=--=--=--=-- Performing Laboratory: Bacteriology Report Performed By: [facility] [CLIA# [id number]] [place] [address] [facility] Jul 03, 2024 05:59 AM LR SURGICAL PATHOL OGY REPORT: LOCAL TITLE: LR SURGICAL PATHOLOGY REPORT STANDARD TITLE: PATHOLOGY REPORT DATE OF NOTE: JUL 06, 2024@10:40:48 ENTRY DATE: JUL 06, 2024@10:40:48 AUTHOR: EDUARDO PALMOARES EXP COSIGNER: URGENCY: STATUS: COMPLETED $APHDR Reporting Lab: [facility] [CLIA# [id number]] [place] [address] - - - - - - - [...] - PATHOLOGY REPORT Accession No. [id number] - - - - - - - [...] - PATHOLOGY REPORT Accession No. [id number] - - - - - - - [...] Second circumferential surgical margin, en face; E-F: Chair Mender diverticula; G: Chair Mender section of mesentery; H: Random financial representative section of additional adipose tissue fragment. [...] colonic tissue ring, bisected transversely. [facility]: Microscopic examination performed. DIAGNOSIS: 1. Colon, sigmoid, sigmoidectomy-- - Diverticulosis with perforation and focal abscess formation 2. Colon, anastomotic rings, excision-- - Viable colonic mucosa without diagnostic abnormality /es/ EDUARDO PALOMARES MD STAFF PATHOLOGIST Signed Jul 06, 2024@10:40 Performing Laboratory: Surgical Pathology Report Performed By: [facility] [CLIA# [id number]] [place] [address] $FTR - - - - - - [...] - - FLACA WEAVER STANDARD FORM 515 ID:[id number] SEX:M :1950 AGE: 73 LOC:56855 ADM:Jun DX:DIVERTICULITIS PCP: Jatinder Cabrera /alexi/ EDUARDO PALOMARES MD STAFF PATHOLOGIST Signed: 07/06/2024 10:[address] [facility] Jun 22, 2024 01:15 PM LR MICROBIOLOGY RE PORT: Reporting Lab: [facility] [CLIA# [id number]] [place] [address] Accession [UID]: [id number] [[id number]] Received: Jun 22, 2024@13:38 Collection sample: FLUID Collection date: Jun 22, 2024 13:15 Provider: ANGELA HOLDEN Comment on specimen: LLQ ABSCESS, RECEIVED IN ANAEROBIC TRANSPORT VIAL Test(s) ordered: GRAM STAIN.................... completed: Jun 22, 2024 15:03 CULTURE & SUSCEPTIBILITY...... completed: Jun 25, 2024 * BACTERIOLOGY FINAL REPORT => Jun 25, 2024 10:56 TECH CODE: [id number] GRAM STAIN: DIRECT SMEAR of specimen before [...] Report Performed By: [facility] [CLIA# [id number]] [place] [address] [facility] Jun 22, 2024 01:15 PM LR MICROBIOLOGY RE PORT: Reporting Lab: [facility] [CLIA# [id number]] [place] [address] Accession [UID]: [id number] [[id number]] Received: Jun 22, 2024@13:38 Collection sample: FLUID Collection date: Jun 22, 2024 13:15 Provider: ANGELA HOLDEN Comment on specimen: LLQ ABSCESS, RECEIVED IN ANAEROBIC TRANSPORT VIAL Test(s) ordered: ANAEROBIC CULTURE............. completed: Jun 28, 2024 * BACTERIOLOGY FINAL REPORT => Jun 28, 2024 10:08 TECH CODE: [id number] CULTURE RESULTS: HEAVY GROWTH MIXED ANAEROBES Comment: [...] Report Performed By: [facility] [CLIA# [id number]] [place] [address] [facility] Jun 21, 2024 06:12 PM LR MICROBIOLOGY RE PORT: Reporting Lab: [facility] [IA# [id number]] [place] [address] Accession [UID]: [id number] [[id number]] Received: Jun 21, 2024@18:12 Collection sample: BLOOD [...] Report Performed By: [facility] [CLIA# [id number]] [place] [address] [facility] Jun 21, 2024 06:11 PM LR MICROBIOLOGY RE PORT: Reporting Lab: [facility] [CLIA# [id number]] [place] [address] Accession [UID]: [id number] [[id number]] Received: Jun 21, 2024@18:11 Collection sample: BLOOD [...] Report Performed By: [facility] [CLIA# [id number]] [place] [address] [facility] Encounter Notes: All associated encounter notes This section contains the clinical notes associated to the Encounter. Date/Time Encounter Note(s) Provider Source Jul 16, 2024 01:00 AM CRITICAL CARE UNIT NOTE: LOCAL TITLE: [facility] INPATIENT FLOWSHEET STANDARD TITLE: CRITICAL CARE UNIT NOTE DATE OF NOTE: JUL 16, 2024@01:00 ENTRY DATE: JUL 17, 2024@14:33:03 AUTHOR: [employer] EXP COSIGNER: URGENCY: STATUS: COMPLETED This is a place aranda only. Please see [employer] to view document. /es/ [employer] SYSTEM ICU DOCUMENT IMPORT Signed: 07/17/2024 14:33 SYSTEM,[employer] [facility] Jul 16, 2024 01:00 AM CRITICAL CARE UNIT NOTE: LOCAL TITLE: [facility] RESPIRATORY THERAPY FLOWSHEET STANDARD TITLE: CRITICAL CARE UNIT NOTE DATE OF NOTE: JUL 16, 2024@01:00 ENTRY DATE: JUL 17, 2024@15:03:10 AUTHOR: [employer] EXP COSIGNER: URGENCY: STATUS: COMPLETED This is a place aranda only. Please see [employer] to view document. /es/ [employer] SYSTEM ICU DOCUMENT IMPORT Signed: 07/17/2024 15:03 SYSTEM,[facility]
--- OUTSIDE RECORDS SUMMARY | 2024-08-01 07:57 | XMS_ITS | Encounter Summary ---
Author Name [facility] [place] [facility] [facility] [place] Address [address] [place] [address] Care Team Providers Care Food Service Manager Name Role Phone JATINDER CABRERA Primary [...] PART A Sep 29, 2016 PART A [id number] [phone] JUDY WEAVER PATIENT Selected Encounter This section includes the information on [place] at [place] for the Encounter. Date/Time Encounter Type Encounter Description Reason Pro vider Source Jul 10, 2024 11:15 AM Outpatient Encounter ADMIN PAT ACTIVTIES ([facility]) [...] 13, 2024 08:15 AM AMBULATORY - NONE [facility] Jul 16, 2024 08:40 AM AMBULATORY - NONE [facility] Jul 16, 2024 11:30 AM AMBULATORY - NONE [facility] Active, Pending, and Scheduled Orders This section includes a listing of several types of active, pending, and scheduled orders, including clinic medications orders, diagnostic test orders, procedure orders and consult orders; where the start date of the order is 45 days before the date of the Encounter or 45 days after the date of theEncounter. The data comes from all [facility]. Test Date/Time Test Type Test Details Facility Name May 28, 2024 12:00 AM Laboratory - Blood Bank Order TYPE & SCREEN - LAB BLOOD SP [facility] Jun 08, 2024 09:57 AM Laboratory - Chemi stry Order URINALYSIS URINE WC ONCE [facility] Jun 12, 2024 12:00 AM Laboratory - Chemi stry Order BNP PLASMA SP ONCE [facility] Jun 21, 2024 05:45 PM Laboratory - Blood Bank Order TYPE & SCREEN - LAB BLOOD WC [facility] Jul 03, 2024 12:00 AM Laboratory - Blood Bank Order TYPE & SCREEN - LAB BLOOD WC [facility] Jul 16, 2024 12:00 AM Laboratory - Chemi stry Order CBC BLOOD SP ONCE [facility] Jul 17, 2024 12:00 AM Laboratory - Chemi stry Order BASIC METABOLIC PANEL+MG PLASMA SP ONCE [facility] Lab Results: +/- 30 days of [...] Range Comment Jul 21, 2024 10:38 AM [facility] BASIC METABOLIC PANEL+MG Specimen Type: PLASMA No comment entered. Ordering Provider: SARAI GOLDEN Report Released Date/Time: Jul 20, 2024 06:50 PM Reporting Lab: [facility] [address] Performing Lab: [facility] [address] CREATININE 0.8 mg/dL 0.7-1.2 UREA NITROGEN 31 mg/dL H 8-26 GLUCOSE 120 mg/dL H 70-100 SODIUM 125 mmol/L L 136-145 POTASSIUM 4.4 mmol/L 3.5-5.1 CHLORIDE 100 mmol/L 98-107 CO2 17 mmol/L L 22-29 CALCIUM 9.6 mg/dL 8.4-10.2 MAGNESIUM 1.9 mg/dL 1.6-2.6 ANION GAP 8 mmol/L 5-15 .CREAT EGFR(CKD-EPI) >90 >60 Jul 21, 2024 10:38 AM [facility] CBC Specimen Type: BLOOD No comment entered. Ordering Provider: SARAI GOLDEN Report Released Date/Time: Jul 20, 2024 06:50 PM Reporting Lab: [facility] [address] Performing Lab: [facility] [address] WBC 16.0 H 4.0-11.0 RBC 5.16 4.60-6.20 HGB 15.8 g/dL 13.5-17.9 HCT 45.5 41.0-54.0 MCV 88.2 fL 80.0-100.0 MCH 30.6 pg 27.0-33.0 MCHC 34.7 g/dL 32.0-37.5 PLT 428 H 150-400 MPV 10.8 fL 9.1-13.0 RDW 13.6 11.5-14.5 Jul 20, 2024 01:00 PM [facility] SODIUM,URINE RANDOM Specimen Type: URINE No comment entered. Ordering Provider: SARAI GOLDEN Report Released Date/Time: Jul 20, 2024 08:22 AM Reporting Lab: [facility] [address] Performing Lab: [facility] [address] SODIUM,URINE RANDOM <20 mmol/L Jul 20, 2024 01:00 PM [facility] OSMOLALITY,URINE Specimen Type: URINE No comment entered. Ordering Provider: SARAI GOLDEN Report Released Date/Time: Jul 20, 2024 08:22 AM Reporting Lab: [facility] [address] Performing Lab: [facility] [address] OSMOLALITY,URIN E 648 mosm/kg 500-800 Jul 20, 2024 06:45 AM [facility] BASIC METABOLIC PANEL+MG Specimen Type: PLASMA No comment entered. Ordering Provider: SARAI GOLDEN Report Released Date/Time: Jul 19, 2024 06:13 PM Reporting Lab: [facility] [address] Performing Lab: [facility] [address] CREATININE 0.8 mg/dL 0.7-1.2 UREA NITROGEN 36 mg/dL H 8-26 GLUCOSE 111 mg/dL H 70-100 SODIUM 121 mmol/L L 136-145 POTASSIUM 4.1 mmol/L 3.5-5.1 CHLORIDE 99 mmol/L 98-107 CO2 14 mmol/L L 22-29 CALCIUM 9.5 mg/dL 8.4-10.2 MAGNESIUM 1.8 mg/dL 1.6-2.6 ANION GAP 8 mmol/L 5-15 .CREAT EGFR(CKD-EPI) >90 >60 Jul 20, 2024 06:43 AM [facility] CBC & DIFF Specimen Type: BLOOD Comment: Automated Differential Performed Ordering Provider: SARAI GOLDEN Report Released Date/Time: Jul 19, 2024 06:13 PM Reporting Lab: [facility] [address] Performing Lab: [facility] [address] WBC 16.6 H 4.0-11.0 RBC 4.96 4.60-6.20 [...] H 0.0-0.1 Jul 20, 2024 05:30 AM [facility] OSMOLALITY,SERUM Specimen Type: SERUM No comment entered. Ordering Provider: SARAI GOLDEN Report Released Date/Time: Jul 20, 2024 09:47 AM Reporting Lab: [facility] [address] Performing Lab: [facility] [address] OSMOLALITY,SERU M 266 mosm/kg L 276-305 Jul 19, 2024 08:57 AM [facility] BASIC METABOLIC PANEL+MG Specimen Type: PLASMA No comment entered. Ordering Provider: SARAI GOLDEN Report Released Date/Time: Jul 18, 2024 10:24 PM Reporting Lab: [facility] [address] Performing Lab: [facility] [address] CREATININE 1.0 mg/dL 0.7-1.2 UREA NITROGEN 40 mg/dL H 8-26 GLUCOSE 104 mg/dL H 70-100 SODIUM 129 mmol/L L 136-145 POTASSIUM 3.3 mmol/L L 3.5-5.1 CHLORIDE 104 mmol/L 98-107 CO2 16 mmol/L L 22-29 CALCIUM 8.0 mg/dL L 8.4-10.2 MAGNESIUM 1.7 mg/dL 1.6-2.6 ANION GAP 9 mmol/L 5-15 .CREAT EGFR(CKD-EPI) 80 >60 Jul 19, 2024 08:57 AM [facility] CBC Specimen Type: BLOOD No comment entered. Ordering Provider: SARAI GOLDEN Report Released Date/Time: Jul 18, 2024 10:24 PM Reporting Lab: [facility] [address] Performing Lab: [facility] [address] WBC 17.3 H 4.0-11.0 RBC 4.83 4.60-6.20 HGB 14.8 g/dL 13.5-17.9 HCT 42.6 41.0-54.0 MCV 88.2 fL 80.0-100.0 MCH 30.6 pg 27.0-33.0 MCHC 34.7 g/dL 32.0-37.5 PLT 456 H 150-400 MPV 10.8 fL 9.1-13.0 RDW 13.7 11.5-14.5 Jul 17, 2024 06:55 PM [facility] PHOSPHORUS Specimen Type: PLASMA No comment entered. Ordering Provider: SARAI GOLDEN Report Released Date/Time: Jul 17, 2024 01:54 PM Reporting Lab: [facility] [address] Performing Lab: [facility] [address] PHOSPHORUS 2.9 mg/dL 2.3-4.3 Jul 17, 2024 06:55 PM [facility] BASIC METABOLIC PANEL+MG Specimen Type: PLASMA No comment entered. Ordering Provider: SARAI GOLDEN Report Released Date/Time: Jul 17, 2024 01:54 PM Reporting Lab: [facility] [address] Performing Lab: [facility] [address] CREATININE 1.2 mg/dL 0.7-1.2 UREA NITROGEN 62 mg/dL H 8-26 GLUCOSE 116 mg/dL H 70-100 SODIUM 128 mmol/L L 136-145 POTASSIUM 3.8 mmol/L 3.5-5.1 CHLORIDE 100 mmol/L 98-107 CO2 16 mmol/L L 22-29 CALCIUM 9.3 mg/dL 8.4-10.2 MAGNESIUM 2.1 mg/dL 1.6-2.6 ANION GAP 12 mmol/L 5-15 .CREAT EGFR(CKD-EPI) 64 >60 Jul 17, 2024 07:00 AM [facility] CBC & DIFF Specimen Type: BLOOD Comment: Manual Differential Performed Ordering Provider: SARAI GOLDEN Report Released Date/Time: Jul 16, 2024 04:52 PM Reporting Lab: [facility] [address] Performing Lab: [facility] [address] WBC 18.9 H 4.0-11.0 RBC 5.55 4.60-6.20 [...] MORPHOLOGY PRESENT Jul 17, 2024 07:00 AM [facility] ALBUMIN Specimen Type: PLASMA No comment entered. Ordering Provider: SARAI GOLDEN Report Released Date/Time: Jul 16, 2024 12:12 PM Reporting Lab: [facility] [address] Performing Lab: [facility] [address] ALBUMIN 4.3 g/dL 3.5-5.0 Jul 17, 2024 07:00 AM [facility] COMPREHENSIVE METABOLIC PANEL+MG Specimen Type: PLASMA No comment entered. Ordering Provider: SARAI GOLDEN Report Released Date/Time: Jul 16, 2024 04:52 PM Reporting Lab: [facility] [address] Performing Lab: [facility] [address] CREATININE 1.3 mg/dL H 0.7-1.2 UREA NITROGEN [...] L >60 Jul 16, 2024 07:10 PM [facility] LACTIC ACID Specimen Type: PLASMA No comment entered. Ordering Provider: SARAI GOLDEN Report Released Date/Time: Jul 16, 2024 12:12 PM Reporting Lab: [facility] [address] Performing Lab: [facility] [address] LACTIC ACID 0.9 mmol/L 0.5-2.2 Jul 16, 2024 02:14 PM [facility] MRSA SURVL NARES DNA Specimen Type: NARES No comment entered. Ordering Provider: SARAI GOLDEN Report Released Date/Time: Jul 16, 2024 12:12 PM Reporting Lab: [facility] [address] Performing Lab: [facility] [address] MRSA SURVL NARES DNA NEGATIVE Negative Jul 16, 2024 02:10 PM [facility] LACTIC ACID Specimen Type: PLASMA No comment entered. Ordering Provider: SARAI GOLDEN Report Released Date/Time: Jul 16, 2024 12:12 PM Reporting Lab: [facility] [address] Performing Lab: [facility] [address] LACTIC ACID 0.9 mmol/L 0.5-2.2 Jul 16, 2024 02:08 PM [facility] COMPREHENSIVE METABOLIC PANEL+MG Specimen Type: PLASMA No comment entered. Ordering Provider: SARAI GOLDEN Report Released Date/Time: Jul 16, 2024 12:12 PM Reporting Lab: [facility] [address] Performing Lab: [facility] [address] CREATININE 2.0 mg/dL H 0.7-1.2 UREA NITROGEN [...] L >60 Jul 16, 2024 02:08 PM [facility] CBC & DIFF Specimen Type: BLOOD Comment: Manual Differential Performed Ordering Provider: SARAI GOLDEN Report Released Date/Time: Jul 16, 2024 12:12 PM Reporting Lab: [facility] [address] Performing Lab: [facility] [address] WBC 19.7 H 4.0-11.0 RBC 5.39 4.60-6.20 [...] MORPHOLOGY PRESENT Jul 10, 2024 07:16 AM [facility] PHOSPHORUS Specimen Type: PLASMA No comment entered. Ordering Provider: JUANCARLOS ECHOLS Report Released Date/Time: Jul 09, 2024 12:23 PM Reporting Lab: [facility] [address] Performing Lab: [facility] [address] PHOSPHORUS 3.0 mg/dL 2.3-4.3 Jul 10, 2024 07:16 AM [facility] BASIC METABOLIC PANEL+MG Specimen Type: PLASMA No comment entered. Ordering Provider: JUANCARLOS ECHOLS S Report Released Date/Time: Jul 09, 2024 12:23 PM Reporting Lab: [facility] [address] Performing Lab: [facility] [address] CREATININE 0.7 mg/dL 0.7-1.2 UREA NITROGEN 27 mg/dL H 8-26 GLUCOSE 104 mg/dL H 70-100 SODIUM 133 mmol/L L 136-145 POTASSIUM 4.3 mmol/L 3.5-5.1 CHLORIDE 102 mmol/L 98-107 CO2 19 mmol/L L 22-29 CALCIUM 10.1 mg/dL 8.4-10.2 MAGNESIUM 1.9 mg/dL 1.6-2.6 ANION GAP 12 mmol/L 5-15 .CREAT EGFR(CKD-EPI) >90 >60 Jul 10, 2024 07:15 AM [facility] CBC Specimen Type: BLOOD No comment entered. Ordering Provider: JUANCARLOS ECHOLS S Report Released Date/Time: Jul 09, 2024 12:23 PM Reporting Lab: [facility] [address] Performing Lab: [facility] [address] WBC 18.8 H 4.0-11.0 RBC 5.08 4.60-6.20 HGB 15.9 g/dL 13.5-17.9 HCT 46.8 41.0-54.0 MCV 92.1 fL 80.0-100.0 MCH 31.3 pg 27.0-33.0 MCHC 34.0 g/dL 32.0-37.5 PLT 479 H 150-400 MPV 10.2 fL 9.1-13.0 RDW 13.7 11.5-14.5 Jul 09, 2024 07:08 AM [facility] CBC Specimen Type: BLOOD No comment entered. Ordering Provider: QUYNH WEISS Report Released Date/Time: Jul 08, 2024 06:18 PM Reporting Lab: [facility] [address] Performing Lab: [facility] [address] WBC 15.3 H 4.0-11.0 RBC 4.91 4.60-6.20 HGB 15.1 g/dL 13.5-17.9 HCT 45.7 41.0-54.0 MCV 93.1 fL 80.0-100.0 MCH 30.8 pg 27.0-33.0 MCHC 33.0 g/dL 32.0-37.5 PLT 443 H 150-400 MPV 10.0 fL 9.1-13.0 RDW 13.5 11.5-14.5 Jul 08, 2024 10:50 AM [facility] URINALYSIS Specimen Type: URINE No comment entered. Ordering Provider: KATELYNN PERSON Report Released Date/Time: Jul 08, 2024 08:41 AM Reporting Lab: [facility] [address] Performing Lab: [facility] [address] URINE COLOR YELLOW SPECIFIC GRAVITY >1.050 H [...] NEGATIVE NEGATIVE Jul 08, 2024 09:54 AM [facility] CBC Specimen Type: BLOOD Comment: Specimen received in Lab at: [id number] Ordering Provider: JUANCARLOS ECHOLS Report Released Date/Time: Jul 07, 2024 04:49 PM Reporting Lab: [facility] [address] Performing Lab: [facility] [address] WBC 17.5 H 4.0-11.0 RBC 4.88 4.60-6.20 HGB 14.9 g/dL 13.5-17.9 HCT 45.7 41.0-54.0 MCV 93.6 fL 80.0-100.0 MCH 30.5 pg 27.0-33.0 MCHC 32.6 g/dL 32.0-37.5 PLT 472 H 150-400 MPV 10.2 fL 9.1-13.0 RDW 13.7 11.5-14.5 Jul 08, 2024 09:54 AM [facility] PHOSPHORUS Specimen Type: PLASMA Comment: Specimen received in Lab at: [id number] Ordering Provider: JUANCARLOS ECHOLS Report Released Date/Time: Jul 07, 2024 04:49 PM Reporting Lab: [facility] [address] Performing Lab: [facility] [address] PHOSPHORUS 2.6 mg/dL 2.3-4.3 Jul 08, 2024 09:54 AM [facility] BASIC METABOLIC PANEL+MG Specimen Type: PLASMA Comment: Specimen received in Lab at: 0952 Ordering Provider: JUANCARLOS ECHOLS Report Released Date/Time: Jul 07, 2024 04:49 PM Reporting Lab: [facility] [address] Performing Lab: [facility] [address] CREATININE 0.9 mg/dL 0.7-1.2 UREA NITROGEN 26 mg/dL 8-26 GLUCOSE 128 mg/dL H 70-100 SODIUM 134 mmol/L L 136-145 POTASSIUM 3.4 mmol/L L 3.5-5.1 CHLORIDE 100 mmol/L 98-107 CO2 24 mmol/L 22-29 CALCIUM 9.8 mg/dL 8.4-10.2 MAGNESIUM 1.8 mg/dL 1.6-2.6 ANION GAP 10 mmol/L 5-15 .CREAT EGFR(CKD-EPI) >90 >60 Jul 07, 2024 02:00 PM [facility] C DIFF PANEL Specimen Type: FECES No comment entered. Ordering Provider: JEVON ZAZUETA Report Released Date/Time: Jul 07, 2024 12:26 PM Reporting Lab: [facility] [address] Performing Lab: [facility] [address] C DIFF TOX B GENE PCR NEGATIVE Negative Jul 07, 2024 07:41 AM [facility] PHOSPHORUS Specimen Type: PLASMA No comment entered. Ordering Provider: JEVON ZAZUETA Report Released Date/Time: Jul 06, 2024 03:44 PM Reporting Lab: [facility] [address] Performing Lab: [facility] [address] PHOSPHORUS 3.1 mg/dL 2.3-4.3 Jul 07, 2024 07:41 AM [facility] BASIC METABOLIC PANEL+MG Specimen Type: PLASMA No comment entered. Ordering Provider: JEVON ZAZUETA Report Released Date/Time: Jul 06, 2024 03:44 PM Reporting Lab: [facility] [address] Performing Lab: [facility] [address] CREATININE 0.9 mg/dL 0.7-1.2 UREA NITROGEN 20 mg/dL 8-26 GLUCOSE 157 mg/dL H 70-100 SODIUM 136 mmol/L 136-145 POTASSIUM 3.7 mmol/L 3.5-5.1 CHLORIDE 102 mmol/L 98-107 CO2 21 mmol/L L 22-29 CALCIUM 9.8 mg/dL 8.4-10.2 MAGNESIUM 1.9 mg/dL 1.6-2.6 ANION GAP 13 mmol/L 5-15 .CREAT EGFR(CKD-EPI) >90 >60 Jul 07, 2024 07:40 AM [facility] CBC Specimen Type: BLOOD No comment entered. Ordering Provider: JEVON ZAZUETA Report Released Date/Time: Jul 06, 2024 03:44 PM Reporting Lab: [facility] [address] Performing Lab: [facility] [address] WBC 21.2 H 4.0-11.0 RBC 5.09 4.60-6.20 HGB 15.9 g/dL 13.5-17.9 HCT 48.3 41.0-54.0 MCV 94.9 fL 80.0-100.0 MCH 31.2 pg 27.0-33.0 MCHC 32.9 g/dL 32.0-37.5 PLT 500 H 150-400 MPV 10.3 fL 9.1-13.0 RDW 13.6 11.5-14.5 Jul 06, 2024 07:21 AM [facility] CBC Specimen Type: BLOOD No comment entered. Ordering Provider: JEVON ZAZUETA Report Released Date/Time: Jul 05, 2024 01:22 PM Reporting Lab: [facility] [address] Performing Lab: [facility] [address] WBC 18.0 H 4.0-11.0 RBC 4.83 4.60-6.20 HGB 14.6 g/dL 13.5-17.9 HCT 45.5 41.0-54.0 MCV 94.2 fL 80.0-100.0 MCH 30.2 pg 27.0-33.0 MCHC 32.1 g/dL 32.0-37.5 PLT 368 150-400 MPV 10.4 fL 9.1-13.0 RDW 13.6 11.5-14.5 Jul 06, 2024 07:21 AM [facility] PHOSPHORUS Specimen Type: PLASMA No comment entered. Ordering Provider: JEVON ZAZUETA Report Released Date/Time: Jul 05, 2024 01:22 PM Reporting Lab: [facility] [address] Performing Lab: [facility] [address] PHOSPHORUS 3.6 mg/dL 2.3-4.3 Jul 06, 2024 07:21 AM [facility] BASIC METABOLIC PANEL+MG Specimen Type: PLASMA No comment entered. Ordering Provider: JEVON ZAZUETA Report Released Date/Time: Jul 05, 2024 01:22 PM Reporting Lab: [facility] [address] Performing Lab: [facility] [address] CREATININE 0.7 mg/dL 0.7-1.2 UREA NITROGEN 12 mg/dL 8-26 GLUCOSE 108 mg/dL H 70-100 SODIUM 138 mmol/L 136-145 POTASSIUM 3.4 mmol/L L 3.5-5.1 CHLORIDE 104 mmol/L 98-107 CO2 20 mmol/L L 22-29 CALCIUM 9.3 mg/dL 8.4-10.2 MAGNESIUM 1.9 mg/dL 1.6-2.6 ANION GAP 14 mmol/L 5-15 .CREAT EGFR(CKD-EPI) >90 >60 Jul 05, 2024 07:17 AM [facility] MAGNESIUM Specimen Type: PLASMA No comment entered. Ordering Provider: JUANCARLOS ECHOLS Report Released Date/Time: Jul 04, 2024 09:39 AM Reporting Lab: [facility] [address] Performing Lab: [facility] [address] MAGNESIUM 2.0 mg/dL 1.6-2.6 Jul 05, 2024 07:17 AM [facility] PHOSPHORUS Specimen Type: PLASMA No comment entered. Ordering Provider: JUANCARLOS ECHOLS S Report Released Date/Time: Jul 04, 2024 09:39 AM Reporting Lab: [facility] [address] Performing Lab: [facility] [address] PHOSPHORUS 2.0 mg/dL L 2.3-4.3 Jul 05, 2024 07:17 AM [facility] BASIC METABOLIC PANEL+MG Specimen Type: PLASMA No comment entered. Ordering Provider: JUANCARLOS ECHOLS S Report Released Date/Time: Jul 04, 2024 09:39 AM Reporting Lab: [facility] [address] Performing Lab: [facility] [address] CREATININE 0.7 mg/dL 0.7-1.2 UREA NITROGEN 12 mg/dL 8-26 GLUCOSE 84 mg/dL 70-100 SODIUM 135 mmol/L L 136-145 POTASSIUM 3.8 mmol/L 3.5-5.1 CHLORIDE 104 mmol/L 98-107 CO2 24 mmol/L 22-29 CALCIUM 9.3 mg/dL 8.4-10.2 MAGNESIUM 2.0 mg/dL 1.6-2.6 ANION GAP 7 mmol/L 5-15 .CREAT EGFR(CKD-EPI) >90 >60 Jul 05, 2024 07:16 AM [facility] CBC Specimen Type: BLOOD No comment entered. Ordering Provider: JUANCARLOS ECHOLS S Report Released Date/Time: Jul 04, 2024 09:39 AM Reporting Lab: [facility] [address] Performing Lab: [facility] [address] WBC 18.3 H 4.0-11.0 RBC 4.49 L 4.60-6.20 HGB 14.1 g/dL 13.5-17.9 HCT 43.4 41.0-54.0 MCV 96.7 fL 80.0-100.0 MCH 31.4 pg 27.0-33.0 MCHC 32.5 g/dL 32.0-37.5 PLT 317 150-400 MPV 10.0 fL 9.1-13.0 RDW 13.9 11.5-14.5 Jul 04, 2024 07:17 AM [facility] PHOSPHORUS Specimen Type: PLASMA No comment entered. Ordering Provider: GABINO CAMERON Report Released Date/Time: Jul 03, 2024 06:31 PM Reporting Lab: [facility] [address] Performing Lab: [facility] [address] PHOSPHORUS 2.8 mg/dL 2.3-4.3 Jul 04, 2024 07:17 AM [facility] BASIC METABOLIC PANEL+MG Specimen Type: PLASMA No comment entered. Ordering Provider: GABINO CAMERON Report Released Date/Time: Jul 03, 2024 06:31 PM Reporting Lab: [facility] [address] Performing Lab: [facility] [address] CREATININE 0.7 mg/dL 0.7-1.2 UREA NITROGEN 16 mg/dL 8-26 GLUCOSE 129 mg/dL H 70-100 SODIUM 137 mmol/L 136-145 POTASSIUM 3.7 mmol/L 3.5-5.1 CHLORIDE 107 mmol/L 98-107 CO2 22 mmol/L 22-29 CALCIUM 9.0 mg/dL 8.4-10.2 MAGNESIUM 1.9 mg/dL 1.6-2.6 ANION GAP 8 mmol/L 5-15 .CREAT EGFR(CKD-EPI) >90 >60 Jul 04, 2024 07:16 AM [facility] CBC Specimen Type: BLOOD No comment entered. Ordering Provider: GABINO CAMERON Report Released Date/Time: Jul 03, 2024 06:31 PM Reporting Lab: [facility] [address] Performing Lab: [facility] [address] WBC 20.6 H 4.0-11.0 RBC 4.63 4.60-6.20 HGB 14.2 g/dL 13.5-17.9 HCT 43.4 41.0-54.0 MCV 93.7 fL 80.0-100.0 MCH 30.7 pg 27.0-33.0 MCHC 32.7 g/dL 32.0-37.5 PLT 329 150-400 MPV 10.4 fL 9.1-13.0 RDW 13.8 11.5-14.5 Jul 04, 2024 07:16 AM [facility] CBC & DIFF Specimen Type: BLOOD Comment: Manual Differential Performed Ordering Provider: GABINO CAMERON Report Released Date/Time: Jul 03, 2024 06:31 PM Reporting Lab: [facility] [address] Performing Lab: [facility] [address] WBC 20.6 H 4.0-11.0 RBC 4.63 4.60-6.20 [...] MORPHOLOGY PRESENT Jul 04, 2024 07:15 AM [facility] BNP Specimen Type: PLASMA No comment entered. Ordering Provider: GABINO CAMERON Report Released Date/Time: Jul 03, 2024 06:31 PM Reporting Lab: [facility] [phone] Performing Lab: [facility] [address] BNP 292 pg/mL H <99 Jul 03, 2024 10:32 PM [facility] FINGERSTICK GLUCOSE Specimen Type: BLOOD Comment: Save Result Nurse Notified Ordering Provider: KATELYNN PERSON Report Released Date/Time: Jul 03, 2024 10:50 PM Reporting Lab: [facility] [address] Performing Lab: [facility] [address] FINGERSTICK GLUCOSE 126 mg/dL H 70-100 Jul 03, 2024 05:33 PM [facility] FINGERSTICK GLUCOSE Specimen Type: BLOOD Comment: Save Result Nurse Notified Ordering Provider: KATELYNN PERSON Report Released Date/Time: Jul 03, 2024 05:46 PM Reporting Lab: [facility] [address] Performing Lab: [facility] [address] FINGERSTICK GLUCOSE 141 mg/dL H 70-100 Jul 03, 2024 02:31 PM [facility] POC ABG/ELECTROLYTES Specimen Type: ARTERIAL BLOOD Comment: FIO2 = 97% Patient Temp: 36.0 C Sample Type = ARTERIAL Ordering Provider: MAZIN ARREDONDO Report Released Date/Time: Jul 03, 2024 01:48 PM Reporting Lab: [facility] [address] Performing Lab: [facility] [address] POC PH 7.387 7.35-7.45 POC PCO2 34.4 [...] H 80.0-105.0 Jul 03, 2024 01:05 PM [facility] POC ABG/ELECTROLYTES Specimen Type: ARTERIAL BLOOD Comment: FIO2 = 53% Patient Temp: 36.2 C Sample Type = ARTERIAL Ordering Provider: MAZIN ARREDONDO Report Released Date/Time: Jul 03, 2024 01:48 PM Reporting Lab: [facility] [address] Performing Lab: [facility] [address] POC PH 7.280 L 7.35-7.45 POC PCO2 [...] mm[Hg] 80.0-105.0 Jul 03, 2024 06:15 AM [facility] URINALYSIS Specimen Type: URINE No comment entered. Ordering Provider: MARYBETH POWELL Report Released Date/Time: Jun 12, 2024 04:01 PM Reporting Lab: [facility] [address] Performing Lab: [facility] [address] URINE COLOR YELLOW SPECIFIC GRAVITY 1.031 1.003-1.03 [...] 250 NEGATIVE Jul 03, 2024 06:13 AM [facility] CBC Specimen Type: BLOOD No comment entered. Ordering Provider: MARYBETH POWELL Report Released Date/Time: Jun 12, 2024 03:59 PM Reporting Lab: [facility] [address] Performing Lab: [facility] [address] WBC 15.8 H 4.0-11.0 RBC 5.11 4.60-6.20 HGB 16.1 g/dL 13.5-17.9 HCT 49.1 41.0-54.0 MCV 96.1 fL 80.0-100.0 MCH 31.5 pg 27.0-33.0 MCHC 32.8 g/dL 32.0-37.5 PLT 357 150-400 MPV 9.8 fL 9.1-13.0 RDW 13.7 11.5-14.5 Jun 24, 2024 09:50 AM [facility] BASIC METABOLIC PANEL+MG Specimen Type: PLASMA Comment: Specimen received in Lab at: [id number] Ordering Provider: JEVON ZAZUETA Report Released Date/Time: Jun 23, 2024 06:07 PM Reporting Lab: [facility] [address] Performing Lab: [facility] [address] CREATININE 0.8 mg/dL 0.7-1.2 UREA NITROGEN 13 mg/dL 8-26 GLUCOSE 135 mg/dL H 70-100 SODIUM 135 mmol/L L 136-145 POTASSIUM 3.6 mmol/L 3.5-5.1 CHLORIDE 103 mmol/L 98-107 CO2 24 mmol/L 22-29 CALCIUM 9.2 mg/dL 8.4-10.2 MAGNESIUM 1.9 mg/dL 1.6-2.6 ANION GAP 8 mmol/L 5-15 .CREAT EGFR(CKD-EPI) >90 >60 Jun 24, 2024 09:50 AM [facility] CBC Specimen Type: BLOOD Comment: Specimen received in Lab at: [id number] Ordering Provider: JEVON ZAZUETA Report Released Date/Time: Jun 23, 2024 06:07 PM Reporting Lab: [facility] [address] Performing Lab: [facility] [address] WBC 15.5 H 4.0-11.0 RBC 4.93 4.60-6.20 HGB 15.2 g/dL 13.5-17.9 HCT 46.5 41.0-54.0 MCV 94.3 fL 80.0-100.0 MCH 30.8 pg 27.0-33.0 MCHC 32.7 g/dL 32.0-37.5 PLT 223 150-400 MPV 11.4 fL 9.1-13.0 RDW 13.9 11.5-14.5 Jun 23, 2024 07:52 AM [facility] COMPREHENSIVE METABOLIC PANEL+MG Specimen Type: PLASMA No comment entered. Ordering Provider: JEVON ZAZUETA Report Released Date/Time: Jun 22, 2024 05:51 PM Reporting Lab: [facility] [address] Performing Lab: [facility] [address] CREATININE 0.7 mg/dL 0.7-1.2 UREA NITROGEN 16 [...] >90 >60 Jun 23, 2024 07:52 AM [facility] CBC & DIFF Specimen Type: BLOOD Comment: Automated Differential Performed Ordering Provider: JEVON ZAZUETA Report Released Date/Time: Jun 22, 2024 05:51 PM Reporting Lab: [facility] [address] Performing Lab: [facility] [address] WBC 14.9 H 4.0-11.0 RBC 5.09 4.60-6.20 [...] 0.1 0.0-0.1 Jun 22, 2024 06:10 PM [facility] CBC Specimen Type: BLOOD No comment entered. Ordering Provider: JEVON ZAZUETA Report Released Date/Time: Jun 22, 2024 05:51 PM Reporting Lab: [facility] [address] Performing Lab: [facility] [address] WBC 16.9 H 4.0-11.0 RBC 5.28 4.60-6.20 HGB 16.9 g/dL 13.5-17.9 HCT 50.4 41.0-54.0 MCV 95.5 fL 80.0-100.0 MCH 32.0 pg 27.0-33.0 MCHC 33.5 g/dL 32.0-37.5 PLT 223 150-400 MPV 10.9 fL 9.1-13.0 RDW 14.0 11.5-14.5 Jun 22, 2024 06:10 PM [facility] COMPREHENSIVE METABOLIC PANEL+MG Specimen Type: PLASMA No comment entered. Ordering Provider: JEVON ZAZUETA Report Released Date/Time: Jun 22, 2024 05:51 PM Reporting Lab: [facility] [address] Performing Lab: [facility] [address] CREATININE 0.7 mg/dL 0.7-1.2 UREA NITROGEN 17 [...] >90 >60 Jun 21, 2024 06:48 PM [facility] URINALYSIS Specimen Type: URINE No comment entered. Ordering Provider: DELIA MARTINEZ Report Released Date/Time: Jun 21, 2024 05:45 PM Reporting Lab: [facility] [address] Performing Lab: [facility] [address] URINE COLOR YELLOW SPECIFIC GRAVITY 1.041 H [...] 500 NEGATIVE Jun 21, 2024 05:34 PM [facility] POC CREATININE Specimen Type: BLOOD No comment entered. Ordering Provider: DELIA MARTINEZ Report Released Date/Time: Jun 21, 2024 06:07 PM Reporting Lab: [facility] [address] Performing Lab: [facility] [address] POC CREATININE 1.1 mg/dL 0.6-1.3 Jun 21, 2024 05:30 PM [facility] POC ABG/LACTATE Specimen Type: VENOUS BLOOD No comment entered. Ordering Provider: DELIA MARTINEZ Report Released Date/Time: Jun 21, 2024 06:07 PM Reporting Lab: [facility] [address] Performing Lab: [facility] [address] POC PH 7.470 H 7.31-7.41 POC PCO2 31.2 mm[Hg] L 41.00-51 .0 0 POC PO2 46 mm[Hg] H 35.0-40.0 POC TCO2 24 mmol/L 24.0-29.0 POC HCO3 22.7 mmol/L L 23.0-28.0 POC BE ECT -1 mmol/L POC SO2 85 H 70-75 POC LACTATE 1.85 mmol/L 0.90-1.70 Jun 21, 2024 05:24 PM [facility] PROTHROMBIN TIME/INR Specimen Type: PLASMA No comment entered. Ordering Provider: DELIA MARTINEZ Report Released Date/Time: Jun 21, 2024 05:30 PM Reporting Lab: [facility] [address] Performing Lab: [facility] [address] .INR 1.2 H 0.8-1.1 .PT 13.9 s H 9.4-12.5 Jun 21, 2024 05:24 PM [facility] LIPASE Specimen Type: PLASMA No comment entered. Ordering Provider: DELIA MRATINEZ Report Released Date/Time: Jun 21, 2024 05:30 PM Reporting Lab: [facility] [address] Performing Lab: [facility] [address] LIPASE 32 U/L <60 Jun 21, 2024 05:24 PM [facility] EXTRA GOLD GEL TUBE Specimen Type: SERUM No comment entered. Ordering Provider: DELIA MARTINEZ Report Released Date/Time: Jun 21, 2024 05:41 PM Reporting Lab: [facility] [address] Performing Lab: [facility] [address] EXTRA GOLD GEL TUBE RECEIVED Jun 21, 2024 05:24 PM [facility] COMPREHENSIVE METABOLIC PANEL+MG Specimen Type: PLASMA No comment entered. Ordering Provider: DELIA MARTINEZ Report Released Date/Time: Jun 21, 2024 05:30 PM Reporting Lab: [facility] [address] Performing Lab: [facility] [address] CREATININE 0.9 mg/dL 0.7-1.2 UREA NITROGEN 29 [...] mg/dL <0.5 Jun 21, 2024 05:24 PM [facility] CBC & DIFF Specimen Type: BLOOD Comment: Manual Differential Performed Ordering Provider: DELIA MARTINEZ Report Released Date/Time: Jun 21, 2024 05:30 PM Reporting Lab: [facility] [address] Performing Lab: [facility] [address] WBC 21.3 H 4.0-11.0 RBC 5.48 4.60-6.20 [...] 15, 2024 08:30 AM VA-TOBACCO FORMER USER [facility] Tobacco Use History This section includes a history of the smoking, or tobacco-related health factors, that were collected on or before the date of the Encounter. The data comes from the [place] facility where the En[place] took place. Date/Time Smoking Status/Tobacco Use Comment F acility May 15, 2024 08:30 AM VA-TOBACCO QUIT 15 YRS OR MORE [facility] May 06, 2023 11:30 AM VA-TOBACCO FORMER USER [facility] May 06, 2023 11:30 AM VA-TOBACCO QUIT 15 YRS OR MORE [facility] Jun 04, 2022 09:00 AM VA-TOBACCO FORMER USER [facility] Jun 04, 2022 09:00 AM VA-TOBACCO QUIT 15 YRS OR MORE [facility] Jul 10, 2021 08:00 AM VA-TOBACCO FORMER USER [facility] Jul 10, 2021 08:00 AM VA-TOBACCO QUIT 5 TO < 15 YRS [facility] May 23, 2020 08:30 AM VA-TOBACCO FORMER USER [facility] May 23, 2020 08:30 AM VA-TOBACCO QUIT 5 TO < 15 YRS [facility] Mar 20, 2019 04:03 PM VA-TOBACCO FORMER USER [facility] Mar 20, 2019 04:03 PM VA-TOBACCO QUIT 5 TO < 15 YRS [facility] Mar 21, 2018 08:13 AM FORMER TOBACCO USER 7Y OR GREATE R [facility] Feb 24, 2017 09:24 AM FORMER TOBACCO USER 7Y OR GREATE R [facility] January 07, 2016 08:01 AM FORMER TOBACCO USE >1Y <7Y [facility] Feb 03, 2015 07:58 AM FORMER TOBACCO USE <1Y [facility] Feb 26, 2014 08:41 AM CURRENT TOBACCO USER [facility] May 13, 2011 01:45 PM CURRENT TOBACCO USER [facility] Advance Directives: All historical and current [...] 06:15 PM CHEST 1 VIEW: FLACA WEAVER [id number] -1950 M Exm Date: JUL 18, 2024@18:15 Req Phys: LEISA GOLDEN Pat Loc: 3ES/07-18-2024@19:00 Img Loc: MAIN X-RAY Service: [place] [address] (Case [id number] COMPLETE) CHEST 1 VIEW (RAD Detailed) CPT:09712 Proc Modifiers : PORTABLE EXAM Reason for Study: SOB Clinical History: IS NOT under investigation for COVID-19 or is COVID-19 negative 73 yo with SOB Responsible provider name and phone number to notify for critical findings if other than user placing the order and pager listed below: User placing orders pager: [phone] LAST CREATININE 1.2 (07/17/24) Report Status: Verified Date Reported: JUL 18, 2024 Date Verified: JUL 18, 2024 Structural Worker E-Sig:/ES/CARLOS A CUNNINGHAM DO Report: EXAMINATION: CHEST 1 VIEW Reason for Study: SOB [place] IS NOT under investigation for COVID-19 or is COVID-19 negative 73 yo with SOB Responsible provider name and phone number to notify for critical findings if other than user placing the order and pager listed below: User placing orders pager: [phone] LAST CREATININE 1.2 (07/17/24) SOB TECHNIQUE: Single [...] Interpreting Staff: CARLOS A CUNNINGHAM DO, RADIOLOGIST (Structural Worker) /KMB CARLOS A CUNNINGHAM [facility] Jul 16, 2024 07:49 AM [facility] CT ABDOMEN/PELVIS: FLACA WEAVER [id number] -1950 M Exm Date: JUL 16, 2024@07:49 Req Phys: JATINDER CABRERA Loc: 07-17-2024@09:02 [facility] [place] Service: Unknown (Case [id number] COMPLETE) NON [place] CT ABDOMEN/PELVIS (CT Detailed) CPT:67414 Reason for Study: outside study Clinical History: [...] Diagnostic Code: VERIFIED BY: / *ELECTRONICALLY FILED* [facility] Jul 13, 2024 09:[address] ABDOMEN/PELVIS: FLACA WAEVER [id number] -1950 M Exm Date: JUL 13, 2024@09:41 Req Phys: JATINDER CABRERA Loc: 3ES07-17-2024@09:08 Img Loc: OUTSOURCE CT Service: Unknown (Case [id number] COMPLETE) NON [place] [facility] ABDOMEN/PELVIS (CT Detailed) CPT:87428 Reason for Study: outside study Clinical History: [...] Diagnostic Code: VERIFIED BY: / *ELECTRONICALLY FILED* [facility] Jul 08, 2024 10:09 AM CHEST 2 VIEWS PA AND LAT: MEGFLACA YAMIL [id number] -1950 M Exm Date: JUL 08, 2024@10:09 Req Phys: KATELYNN PERSON Loc: 2KG07-08-2024@11:49 Img Loc: MAIN X-RAY Service: [place] [address] (Case [id number] COMPLETE) CHEST 2 VIEWS PA AND LAT (RAD Detailed) CPT:72517 Reason for Study: Uptrending WBC, POD 5 [...] 08, 2024 Date Verified: JUL 08, 2024 Structural Worker E-Sig: Report: CHEST 2 VIEWS PA [...] cardiopulmonary disease. READING PHYSICIAN: Sarbjit Vaughn M.D. -[phone] 07/08/2024 12:[address] [facility] National Teleradiology Program [phone] (For Medical Practitioner Use Only) Attention Patients / Veterans: If you have questions or concerns about these test results, please contact your ordering provider or primary care team. Primary Interpreting Staff: RADIOLOGY,OUTSIDE SERVICE, Staff Physician / RADIOLOGY,OUTSIDE SERVICE [facility] Jul 08, 2024 10:[address] (AP) ABDOMEN/PELVIS W CONTRAST: FLACA WEAVER YAMIL [id number] -1950 M Exm Date: JUL 08, 2024@10:00 Req Phys: KATELYNN PERSON [facility] Loc: [facility]/07-08-2024@12:07 Img Loc: CT IMAGING Service: [place] [address] (Case [id number] COMPLETE) CT (AP) ABDOMEN/PELVIS W CONTRAST(CT Detailed) CPT:58441 Contrast Media : Non-ionic Iodinated Reason for [...] PLASMA .CREAT EGFR(CKD-E >90 Ref: >=60 Allergies: ([place] only) TERAZOSIN (Mar 13, 2015) Report Status: Verified Date Reported: JUL 08, 2024 Date Verified: JUL 08, 2024 Structural Worker E-Sig: Report: CT (AP) ABDOMEN/PELVIS W [...] as noted above READING PHYSICIAN: Celestino Blanc -[phone] 07/08/2024 13:[address] [facility] [employer] Portal Teleradiology Program [phone] (For Medical Practitioner Use Only) Attention Patients / Veterans: If you have questions or concerns about these test results, please contact your ordering provider or primary care team. Primary Interpreting Staff: RADIOLOGY,OUTSIDE SERVICE, Staff Physician / RADIOLOGY,OUTSIDE SERVICE [facility] Jun 22, 2024 11:49 AM ABSCESS DRAIN PLACEMENT PERITONEAL (P): FLACA WEAVER [id number] -1950 M Exm Date: JUN 22, 2024@11:49 Req Phys: ANGELA HOLDEN Loc: [facility]/06-22-2024@17:14 Img Loc: INTERVENTIONAL RADIOLOGY Service: [place] [address] (Case [id number] COMPLETE) IR PERITONEAL/RETROPERITONEAL PER(ANI Detailed) CPT:19099 Reason for Study: diverticulitis with abscess (Case [id number] COMPLETE) IR MOD SEDATION 10-22 MIN (ANI Detailed) CPT:94618 Clinical History: [place] IS NOT under investigation for COVID-19 or is COVID-19 negative 73 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 please place abscess drain. Contact number for responsible provider who can be reached for any questions or notifications of critical findings: [phone] n/a LAST CREATININE 0.9 (06/21/24) Report Status: Verified Date Reported: JUN 22, 2024 Date Verified: JUN 22, 2024 Structural Worker E-Sig:/ES/LISA PENDLETON MD Report: PROCEDURES: Placement [...] Using real-time CT fluoroscopy, a 5 [place] Boll & Branchesis catheter was advanced into the collection in the left pelvis. A wire was coiled in the collection. The tract into the collection was dilated to accommodate the 12 [place] locking pigtail drainage catheter. There was [...] Primary Interpreting Staff: LISA PENDLETON MD, RADIOLOGIST (Structural Worker) /JRT LISA PENDLETON [facility] Jun 22, 2024 11:[address] NEEDLE PLACEMENT (P): FLACA WEAVER [id number] -1950 M Exm Date: JUN 22, 2024@11:48 Req Phys: ANGELA HOLDEN Loc: [facility]06-22-2024@17:14 Im Loc: CT IMAGING Service: [place] [address] (Case [id number] COMPLETE) CT SCAN FOR NEEDLE PLACEMENT (CT Detailed) CPT:08855 Reason for Study: l pelvic abscess drain Clinical History: Report Status: Verified Date Reported: JUN 22, 2024 Date Verified: JUN 22, 2024 Structural Worker E-Sig:/ES/LISA PENDLETON MD Report: PROCEDURES: Placement [...] Using real-time CT fluoroscopy, a 5 [place] Boll & Branchesis catheter was advanced into the collection in the left pelvis. A wire was coiled in the collection. The tract into the collection was dilated to accommodate the 12 [place] locking pigtail drainage catheter. There was [...] Primary Interpreting Staff: LISA PENDLETON MD, RADIOLOGIST (Structural Worker) /JRT LISA PENDLETON [facility] Jun 21, 2024 06:[address] (AP) ABDOMEN/PELVIS (P): FLACA WEAVER [id number] -1950 Exm Date: JUN 21, 2024@18:09 Req Phys: DELIA MARTINEZ Loc: [facility] [facility] [place]: CT IMAGING Service: [place] [address] (Case [id number] COMPLETE) CT (AP) ABDOMEN/PELVIS W CONTRAST(CT Detailed) CPT:27282 Contrast Media : Non-ionic Iodinated Reason for [...] PLASMA .CREAT EGFR(CKD-E >90 Ref: >=60 Allergies: ([place] only) TERAZOSIN (Mar 13, 2015) Defer to [...] 21, 2024 Date Verified: JUN 21, 2024 Structural Worker E-Sig:/ES/CARLOS A CUNNINGHAM DO Report: EXAMINATION: [...] Interpreting Staff: CARLOS A CUNNINGHAM DO, RADIOLOGIST (Structural Worker) /CARLOS A ROWELL [facility] Pathology Reports: +/- 30 days of [...] PM LR MICROBIOLOGY RE PORT: Reporting Lab: [facility] [CLIA# [id number]] [place] [address] Accession [UID]: [id number] [[id number]] Received: Jul 16, 2024@14:41 Collection sample: BLOOD Collection date: Jul 16, 2024 14:07 Provider: LEISA GOLDEN Comment on specimen: R AC, RECEIVED 2 BLOOD CULTURE BOTTLES Test(s) ordered: CULTURE & SUSCEPTIBILITY...... completed: Jul 22, 2024 * BACTERIOLOGY FINAL REPORT => Jul 22, 2024 13:39 TECH CODE: [id number] CULTURE RESULTS: NO GROWTH 5 DAYS Bacteriology Remark(s): THIS REPORT IS FINAL =--=--=--=--=--=--=--=--=--= --=--=--=--=--=--=--=--=--=- -=--=--=--=--=--=--=-- Performing Laboratory: Bacteriology Report Performed By: [facility] [CLIA# [id number]] [place] [address] [facility] Jul 16, 2024 01:54 PM LR MICROBIOLOGY RE PORT: Reporting Lab: [facility] [IA# [id number]] [place] [address] Accession [UID]: [id number] [[id number]] Received: Jul 16, 2024@14:41 Collection sample: BLOOD Collection date: Jul 16, 2024 13:54 Provider: LEISA GOLDEN Comment on specimen: [place] AC, RECEIVED 2 BLOOD CULTURE BOTTLES Test(s) ordered: CULTURE & SUSCEPTIBILITY...... completed: Jul 22, 2024 * BACTERIOLOGY FINAL REPORT => Jul 22, 2024 13:39 TECH CODE: [id number] CULTURE RESULTS: NO GROWTH 5 DAYS Bacteriology Remark(s): THIS REPORT IS FINAL =--=--=--=--=--=--=--=--=--= --=--=--=--=--=--=--=--=--=- -=--=--=--=--=--=--=-- Performing Laboratory: Bacteriology Report Performed By: [facility] [IA# [id number]] [place] [address] [facility] Jul 03, 2024 05:59 AM LR SURGICAL PATHOL OGY REPORT: LOCAL TITLE: LR SURGICAL PATHOLOGY REPORT STANDARD TITLE: PATHOLOGY REPORT DATE OF NOTE: JUL 06, 2024@10:40:48 ENTRY DATE: JUL 06, 2024@10:40:48 AUTHOR: EDUARDO PALOMARES EXP COSIGNER: URGENCY: STATUS: COMPLETED $APHDR Reporting Lab: [facility] [IA# [id number]] [place] [address] - - - - - - - [...] - PATHOLOGY REPORT Accession No. [id number] - - - - - - - [...] - PATHOLOGY REPORT Accession No. [id number] - - - - - - - [...] Second circumferential surgical margin, en face; E-F: Front End Loader Driver diverticula; G: Front End Loader Driver section of mesentery; H: Random patient access representative section of additional adipose tissue fragment. [...] One colonic tissue ring, bisected transversely. [facility]: Microscopic examination performed. DIAGNOSIS: 1. Colon, sigmoid, sigmoidectomy-- - Diverticulosis with perforation and focal abscess formation 2. Colon, anastomotic rings, excision-- - Viable colonic mucosa without diagnostic abnormality /es/ EDUARDO PALOMARES MD STAFF PATHOLOGIST Signed Jul 06, 2024@10:40 Performing Laboratory: Surgical Pathology Report Performed By: [facility] [CLIA# [id number]] [place] [address] $FTR - - - - - - [...] - - FLACA WEAVER STANDARD FORM 515 ID:[id number] SEX:M :1950 AGE: 73 LOC:54548 ADM:Jun DX:DIVERTICULITIS PCP: Jatinder Cabrera /alexi/ EDUARDO PALOMARES MD STAFF PATHOLOGIST Signed: 07/06/2024 10:40 EDUARDO PALOMARES [facility] Jun 22, 2024 01:15 PM LR MICROBIOLOGY RE PORT: Reporting Lab: [facility] [CLIA# [id number]] [place] [address] Accession [UID]: [id number] [[id number]] Received: Jun 22, 2024@13:38 Collection sample: FLUID Collection date: Jun 22, 2024 13:15 Provider: ANGELA HOLDEN Comment on specimen: LLQ ABSCESS, RECEIVED IN ANAEROBIC TRANSPORT VIAL Test(s) ordered: GRAM STAIN.................... completed: Jun 22, 2024 15:03 CULTURE & SUSCEPTIBILITY...... completed: Jun 25, 2024 * BACTERIOLOGY FINAL REPORT => Jun 25, 2024 10:56 TECH CODE: [id number] GRAM STAIN: DIRECT SMEAR of specimen before [...] -=--=--=--=--=--=--=-- Performing Laboratory: Bacteriology Report Performed By: [facility] [CLIA# [id number]] [place] [address] [facility] Jun 22, 2024 01:15 PM LR MICROBIOLOGY RE PORT: Reporting Lab: [facility] [CLIA# [id number]] [place] [address] Accession [UID]: [id number] [[id number]] Received: Jun 22, 2024@13:38 Collection sample: FLUID Collection date: Jun 22, 2024 13:15 Provider: ANGELA HOLDEN Comment on specimen: LLQ ABSCESS, RECEIVED IN ANAEROBIC TRANSPORT VIAL Test(s) ordered: ANAEROBIC CULTURE............. completed: Jun 28, 2024 * BACTERIOLOGY FINAL REPORT => Jun 28, 2024 10:08 TECH CODE: [id number] CULTURE RESULTS: HEAVY GROWTH MIXED ANAEROBES Comment: including the followin+ Bacteroides fragilis 4+ Bacteroides vulgatus 4+ Clostridium innocuum Beta-lactamase negative 4+ Bacteroides caccae 4+ Parvimonas micra 4+ Bacteroides uniformis 4+ Gemella morbillorum 4+ anaerobic small, Gram Positive Rods 4+ Bacteroides thetaiotaomicron Standard workup is now complete. Bacteriology Remark(s): THIS REPORT IS FINAL =--=--=--=--=--=--=--=--=--= --=--=--=--=--=--=--=--=--=- -=--=--=--=--=--=--=-- Performing Laboratory: Bacteriology Report Performed By: [facility] [CLIA# [id number]] [place] [address] [facility] Jun 21, 2024 06:12 PM LR MICROBIOLOGY RE PORT: Reporting Lab: [facility] [CLIA# [id number]] [place] [address] Accession [UID]: [id number] [[id number]] Received: Jun 21, 2024@18:12 Collection sample: BLOOD [...] -=--=--=--=--=--=--=-- Performing Laboratory: Bacteriology Report Performed By: [facility] [CLIA# [id number]] [place] [address] [facility] Jun 21, 2024 06:11 PM LR MICROBIOLOGY RE PORT: Reporting Lab: [facility] [CLIA# [id number]] [place] [address] Accession [UID]: [id number] [[id number]] Received: Jun 21, 2024@18:11 Collection sample: BLOOD [...] -=--=--=--=--=--=--=-- Performing Laboratory: Bacteriology Report Performed By: [facility] [CLIA# [id number]] [place] [address] [facility] Encounter Notes: All associated encounter notes This section contains the clinical notes associated to the Encounter. Date/Time Encounter Note(s) Provider Source Jul 10, 2024 11:15 AM SCANNED REPORT: LOCAL TITLE: INPATIENT STAY DOCUMENTS STANDARD TITLE: SCANNED REPORT DATE OF NOTE: JUL 10, 2024@11:15 ENTRY DATE: JUL 17, 2024@14:06:22 AUTHOR: NIKOLAY TREJO EXP COSIGNER: URGENCY: STATUS: COMPLETED [facility]ist[facility] Imaging - Scanned Document This note contains attached inpatient stay documents, date of note is date of discharge, for this visit. [employer] Display to review the document(s). /alexi/ NIKOLAY TREJO [employer] Signed: 07/17/2024 14:06 NIKOLAY TREJO [facility]
--- OUTSIDE RECORDS SUMMARY | 2024-08-01 07:58 | XMS_ITS ---
[place] DAILY HOSPITALIZATION DATA [facility] Encounter Summary Created on: August 01, 2024 MEG FLACADARCI LOBO : 1950 Sex: Male Author Name [facility] [place] [facility] [place] Address [address] [place] [address] Care Team Providers Care Etcher Apprentice Name Role Phone JATINDER CABRERA Primary [...] PART A Sep 29, 2016 PART A [id number] [phone] JUDY WEAVER PATIENT Selected Encounter This section includes the information on record at [place] for the Encounter. Date/Time Encounter Type Encounter Description Reason Pro vider Source Jul 17, 2024 07:25 PM Inpatient Visit DAILY HOSPITALIZATION DATA IHE [...] BLOOD WC [facility] Jul 16, 2024 [...] Range Comment Jul 21, 2024 10:38 AM [facility] BASIC METABOLIC PANEL+MG Specimen Type: PLASMA No comment entered. Ordering Provider: SARAI GOLDEN Report Released Date/Time: Jul 20, 2024 06:50 PM Reporting Lab: [facility] [address] Performing Lab: [facility] [address] CREATININE 0.8 mg/dL 0.7-1.2 UREA NITROGEN 31 mg/dL H 8-26 GLUCOSE 120 mg/dL H 70-100 SODIUM 125 mmol/L L 136-145 POTASSIUM 4.4 mmol/L 3.5-5.1 CHLORIDE 100 mmol/L 98-107 CO2 17 mmol/L L 22-29 CALCIUM 9.6 mg/dL 8.4-10.2 MAGNESIUM 1.9 mg/dL 1.6-2.6 ANION GAP 8 mmol/L 5-15 .CREAT EGFR(CKD-EPI) >90 >60 Jul 21, 2024 10:38 AM [facility] CBC Specimen Type: BLOOD No comment entered. Ordering Provider: SARAI GOLDEN Report Released Date/Time: Jul 20, 2024 06:50 PM Reporting Lab: [facility] [address] Performing Lab: [facility] [address] WBC 16.0 H 4.0-11.0 RBC 5.16 4.60-6.20 HGB 15.8 g/dL 13.5-17.9 HCT 45.5 41.0-54.0 MCV 88.2 fL 80.0-100.0 MCH 30.6 pg 27.0-33.0 MCHC 34.7 g/dL 32.0-37.5 PLT 428 H 150-400 MPV 10.8 fL 9.1-13.0 RDW 13.6 11.5-14.5 Jul 20, 2024 01:00 PM [facility] SODIUM,URINE RANDOM Specimen Type: URINE No comment entered. Ordering Provider: SARAI GOLDEN Report Released Date/Time: Jul 20, 2024 08:22 AM Reporting Lab: [facility] [address] Performing Lab: [facility] [address] SODIUM,URINE RANDOM <20 mmol/L Jul 20, 2024 01:00 PM [facility] OSMOLALITY,URINE Specimen Type: URINE No comment entered. Ordering Provider: SARAI GOLDEN Report Released Date/Time: Jul 20, 2024 08:22 AM Reporting Lab: [facility] [address] Performing Lab: [facility] [address] OSMOLALITY,URIN E 648 mosm/kg 500-800 Jul 20, 2024 06:45 AM [facility] BASIC METABOLIC PANEL+MG Specimen Type: PLASMA No comment entered. Ordering Provider: SARAI GOLDEN Report Released Date/Time: Jul 19, 2024 06:13 PM Reporting Lab: [facility] [address] Performing Lab: [facility] [address] CREATININE 0.8 mg/dL 0.7-1.2 UREA NITROGEN 36 mg/dL H 8-26 GLUCOSE 111 mg/dL H 70-100 SODIUM 121 mmol/L L 136-145 POTASSIUM 4.1 mmol/L 3.5-5.1 CHLORIDE 99 mmol/L 98-107 CO2 14 mmol/L L 22-29 CALCIUM 9.5 mg/dL 8.4-10.2 MAGNESIUM 1.8 mg/dL 1.6-2.6 ANION GAP 8 mmol/L 5-15 .CREAT EGFR(CKD-EPI) >90 >60 Jul 20, 2024 06:43 AM [facility] CBC & DIFF Specimen Type: BLOOD Comment: Automated Differential Performed Ordering Provider: SARAI GOLDEN Report Released Date/Time: Jul 19, 2024 06:13 PM Reporting Lab: [facility] [address] Performing Lab: [facility] [address] WBC 16.6 H 4.0-11.0 RBC 4.96 4.60-6.20 [...] H 0.0-0.1 Jul 20, 2024 05:30 AM [facility] OSMOLALITY,SERUM Specimen Type: SERUM No comment entered. Ordering Provider: SARAI GOLDEN Report Released Date/Time: Jul 20, 2024 09:47 AM Reporting Lab: [facility] [address] Performing Lab: [facility] [address] OSMOLALITY,SERU M 266 mosm/kg L 276-305 Jul 19, 2024 08:57 AM [facility] BASIC METABOLIC PANEL+MG Specimen Type: PLASMA No comment entered. Ordering Provider: SARAI GOLDEN Report Released Date/Time: Jul 18, 2024 10:24 PM Reporting Lab: [facility] [address] Performing Lab: [facility] [address] CREATININE 1.0 mg/dL 0.7-1.2 UREA NITROGEN 40 mg/dL H 8-26 GLUCOSE 104 mg/dL H 70-100 SODIUM 129 mmol/L L 136-145 POTASSIUM 3.3 mmol/L L 3.5-5.1 CHLORIDE 104 mmol/L 98-107 CO2 16 mmol/L L 22-29 CALCIUM 8.0 mg/dL L 8.4-10.2 MAGNESIUM 1.7 mg/dL 1.6-2.6 ANION GAP 9 mmol/L 5-15 .CREAT EGFR(CKD-EPI) 80 >60 Jul 19, 2024 08:57 AM [facility] CBC Specimen Type: BLOOD No comment entered. Ordering Provider: SARAI GOLDEN Report Released Date/Time: Jul 18, 2024 10:24 PM Reporting Lab: [facility] [address] Performing Lab: [facility] [address] WBC 17.3 H 4.0-11.0 RBC 4.83 4.60-6.20 HGB 14.8 g/dL 13.5-17.9 HCT 42.6 41.0-54.0 MCV 88.2 fL 80.0-100.0 MCH 30.6 pg 27.0-33.0 MCHC 34.7 g/dL 32.0-37.5 PLT 456 H 150-400 MPV 10.8 fL 9.1-13.0 RDW 13.7 11.5-14.5 Jul 17, 2024 06:55 PM [facility] PHOSPHORUS Specimen Type: PLASMA No comment entered. Ordering Provider: SARAI GOLDEN Report Released Date/Time: Jul 17, 2024 01:54 PM Reporting Lab: [facility] [address] Performing Lab: [facility] [address] PHOSPHORUS 2.9 mg/dL 2.3-4.3 Jul 17, 2024 06:55 PM [facility] BASIC METABOLIC PANEL+MG Specimen Type: PLASMA No comment entered. Ordering Provider: SARAI GOLDEN Report Released Date/Time: Jul 17, 2024 01:54 PM Reporting Lab: [facility] [address] Performing Lab: [facility] [address] CREATININE 1.2 mg/dL 0.7-1.2 UREA NITROGEN 62 mg/dL H 8-26 GLUCOSE 116 mg/dL H 70-100 SODIUM 128 mmol/L L 136-145 POTASSIUM 3.8 mmol/L 3.5-5.1 CHLORIDE 100 mmol/L 98-107 CO2 16 mmol/L L 22-29 CALCIUM 9.3 mg/dL 8.4-10.2 MAGNESIUM 2.1 mg/dL 1.6-2.6 ANION GAP 12 mmol/L 5-15 .CREAT EGFR(CKD-EPI) 64 >60 Jul 17, 2024 07:00 AM [facility] CBC & DIFF Specimen Type: BLOOD Comment: Manual Differential Performed Ordering Provider: SARAI GOLDEN Report Released Date/Time: Jul 16, 2024 04:52 PM Reporting Lab: [facility] [address] Performing Lab: [facility] [address] WBC 18.9 H 4.0-11.0 RBC 5.55 4.60-6.20 [...] MORPHOLOGY PRESENT Jul 17, 2024 07:00 AM [facility] ALBUMIN Specimen Type: PLASMA No comment entered. Ordering Provider: SARAI GOLDEN Report Released Date/Time: Jul 16, 2024 12:12 PM Reporting Lab: [facility] [address] Performing Lab: [facility] [address] ALBUMIN 4.3 g/dL 3.5-5.0 Jul 17, 2024 07:00 AM [facility] COMPREHENSIVE METABOLIC PANEL+MG Specimen Type: PLASMA No comment entered. Ordering Provider: SARAI GOLDEN Report Released Date/Time: Jul 16, 2024 04:52 PM Reporting Lab: [facility] [address] Performing Lab: [facility] [address] CREATININE 1.3 mg/dL H 0.7-1.2 UREA NITROGEN [...] L >60 Jul 16, 2024 07:10 PM [facility] LACTIC ACID Specimen Type: PLASMA No comment entered. Ordering Provider: SARAI GOLDEN Report Released Date/Time: Jul 16, 2024 12:12 PM Reporting Lab: [facility] [address] Performing Lab: [facility] [address] LACTIC ACID 0.9 mmol/L 0.5-2.2 Jul 16, 2024 02:14 PM [facility] MRSA SURVL NARES DNA Specimen Type: NARES No comment entered. Ordering Provider: SARAI GOLDEN Report Released Date/Time: Jul 16, 2024 12:12 PM Reporting Lab: [facility] [address] Performing Lab: [facility] [address] MRSA SURVL NARES DNA NEGATIVE Negative Jul 16, 2024 02:10 PM [facility] LACTIC ACID Specimen Type: PLASMA No comment entered. Ordering Provider: SARAI GOLDEN Report Released Date/Time: Jul 16, 2024 12:12 PM Reporting Lab: [facility] [address] Performing Lab: [facility] [address] LACTIC ACID 0.9 mmol/L 0.5-2.2 Jul 16, 2024 02:08 PM [facility] COMPREHENSIVE METABOLIC PANEL+MG Specimen Type: PLASMA No comment entered. Ordering Provider: SARAI GOLDEN Report Released Date/Time: Jul 16, 2024 12:12 PM Reporting Lab: [facility] [address] Performing Lab: [facility] [address] CREATININE 2.0 mg/dL H 0.7-1.2 UREA NITROGEN [...] L >60 Jul 16, 2024 02:08 PM [facility] CBC & DIFF Specimen Type: BLOOD Comment: Manual Differential Performed Ordering Provider: SARAI GOLDEN Report Released Date/Time: Jul 16, 2024 12:12 PM Reporting Lab: [facility] [address] Performing Lab: [facility] [address] WBC 19.7 H 4.0-11.0 RBC 5.39 4.60-6.20 [...] MORPHOLOGY PRESENT Jul 10, 2024 07:16 AM [facility] PHOSPHORUS Specimen Type: PLASMA No comment entered. Ordering Provider: JUANCARLOS ECHOLS Report Released Date/Time: Jul 09, 2024 12:23 PM Reporting Lab: [facility] [address] Performing Lab: [facility] [address] PHOSPHORUS 3.0 mg/dL 2.3-4.3 Jul 10, 2024 07:16 AM [facility] BASIC METABOLIC PANEL+MG Specimen Type: PLASMA No comment entered. Ordering Provider: JUANCARLOS ECHOLS S Report Released Date/Time: Jul 09, 2024 12:23 PM Reporting Lab: [facility] [address] Performing Lab: [facility] [address] CREATININE 0.7 mg/dL 0.7-1.2 UREA NITROGEN 27 [...] Jul 09, 2024 12:23 PM Reporting Lab: [facility] [address] Performing Lab: [facility] [address] WBC 18.8 H 4.0-11.0 RBC 5.08 4.60-6.20 [...] Jul 08, 2024 06:18 PM Reporting Lab: [facility] [address] Performing Lab: [facility] [address] WBC 15.3 H 4.0-11.0 RBC 4.91 4.60-6.20 [...] Jul 08, 2024 08:41 AM Reporting Lab: [facility] [address] Performing Lab: [facility] [address] URINE COLOR YELLOW SPECIFIC GRAVITY >1.050 H [...] Jul 07, 2024 04:49 PM Reporting Lab: [facility] [address] Performing Lab: [facility] [address] WBC 17.5 H 4.0-11.0 RBC 4.88 4.60-6.20 [...] Jul 07, 2024 04:49 PM Reporting Lab: [facility] [address] Performing Lab: [facility] [address] PHOSPHORUS 2.6 mg/dL 2.3-4.3 Jul 08, 2024 09:54 AM [facility] BASIC METABOLIC PANEL+MG Specimen Type: PLASMA Comment: Specimen received in Lab at: [id number] Ordering Provider: JUANCARLOS ECHOLS Report Released Date/Time: Jul 07, 2024 04:49 PM Reporting Lab: [facility] [address] Performing Lab: [facility] [address] CREATININE 0.9 mg/dL 0.7-1.2 UREA NITROGEN 26 [...] Jul 07, 2024 12:26 PM Reporting Lab: [facility] [address] Performing Lab: [facility] [address] C DIFF TOX B GENE PCR NEGATIVE Negative Jul 07, 2024 07:41 AM [facility] PHOSPHORUS Specimen Type: PLASMA No comment entered. Ordering Provider: JEVON ZAZUETA Report Released Date/Time: Jul 06, 2024 03:44 PM Reporting Lab: [facility] [address] Performing Lab: [facility] [address] PHOSPHORUS 3.1 mg/dL 2.3-4.3 Jul 07, 2024 07:41 AM [facility] BASIC METABOLIC PANEL+MG Specimen Type: PLASMA No comment entered. Ordering Provider: JEVON ZAZUETA Report Released Date/Time: Jul 06, 2024 03:44 PM Reporting Lab: [facility] [address] Performing Lab: [facility] [address] CREATININE 0.9 mg/dL 0.7-1.2 UREA NITROGEN 20 [...] Jul 06, 2024 03:44 PM Reporting Lab: [facility] [address] Performing Lab: [facility] [address] WBC 21.2 H 4.0-11.0 RBC 5.09 4.60-6.20 [...] Jul 05, 2024 01:22 PM Reporting Lab: [facility] [address] Performing Lab: [facility] [address] WBC 18.0 H 4.0-11.0 RBC 4.83 4.60-6.20 [...] Jul 05, 2024 01:22 PM Reporting Lab: [facility] [address] Performing Lab: [facility] [address] PHOSPHORUS 3.6 mg/dL 2.3-4.3 Jul 06, 2024 07:21 AM [facility] BASIC METABOLIC PANEL+MG Specimen Type: PLASMA No comment entered. Ordering Provider: JEVON ZAZUETA Report Released Date/Time: Jul 05, 2024 01:22 PM Reporting Lab: [facility] [address] Performing Lab: [facility] [address] CREATININE 0.7 mg/dL 0.7-1.2 UREA NITROGEN 12 [...] Jul 04, 2024 09:39 AM Reporting Lab: [facility] [address] Performing Lab: [facility] [address] MAGNESIUM 2.0 mg/dL 1.6-2.6 Jul 05, 2024 07:17 AM [facility] PHOSPHORUS Specimen Type: PLASMA No comment entered. Ordering Provider: JUANCARLOS ECHOLS S Report Released Date/Time: Jul 04, 2024 09:39 AM Reporting Lab: [facility] [address] Performing Lab: [facility] [address] PHOSPHORUS 2.0 mg/dL L 2.3-4.3 Jul 05, 2024 07:17 AM [facility] BASIC METABOLIC PANEL+MG Specimen Type: PLASMA No comment entered. Ordering Provider: JUANCARLOS ECHOLS S Report Released Date/Time: Jul 04, 2024 09:39 AM Reporting Lab: [facility] [address] Performing Lab: [facility] [address] CREATININE 0.7 mg/dL 0.7-1.2 UREA NITROGEN 12 [...] Jul 04, 2024 09:39 AM Reporting Lab: [facility] [address] Performing Lab: [facility] [address] WBC 18.3 H 4.0-11.0 RBC 4.49 L [...] Jul 03, 2024 06:31 PM Reporting Lab: [facility] [address] Performing Lab: [facility] [address] CREATININE 0.7 mg/dL 0.7-1.2 UREA NITROGEN 16 [...] Jul 03, 2024 06:31 PM Reporting Lab: [facility] [address] Performing Lab: [facility] [address] PHOSPHORUS 2.8 mg/dL 2.3-4.3 Jul 04, 2024 07:16 AM [facility] CBC Specimen Type: BLOOD No comment entered. Ordering Provider: GABINO CAMERON Report Released Date/Time: Jul 03, 2024 06:31 PM Reporting Lab: [facility] [address] Performing Lab: [facility] [address] WBC 20.6 H 4.0-11.0 RBC 4.63 4.60-6.20 [...] Jul 03, 2024 06:31 PM Reporting Lab: [facility] [address] Performing Lab: [facility] [address] WBC 20.6 H 4.0-11.0 RBC 4.63 4.60-6.20 [...] Jul 03, 2024 06:31 PM Reporting Lab: [facility] [address] Performing Lab: [facility] [address] BNP 292 pg/mL H <99 Jul 03, 2024 10:32 PM [facility] FINGERSTICK GLUCOSE Specimen Type: BLOOD Comment: Save Result Nurse Notified Ordering Provider: KATELYNN PERSON Report Released Date/Time: Jul 03, 2024 10:50 PM Reporting Lab: [facility] [address] Performing Lab: [facility] [address] FINGERSTICK GLUCOSE 126 mg/dL H 70-100 Jul 03, 2024 05:33 PM [facility] FINGERSTICK GLUCOSE Specimen Type: BLOOD Comment: Save Result Nurse Notified Ordering Provider: KATELYNN PERSON Report Released Date/Time: Jul 03, 2024 05:46 PM Reporting Lab: [facility] [address] Performing Lab: [facility] [address] FINGERSTICK GLUCOSE 141 mg/dL H 70-100 Jul 03, 2024 02:31 PM [facility] POC ABG/ELECTROLYTES Specimen Type: ARTERIAL BLOOD Comment: FIO2 = 97% Patient Temp: 36.0 C Sample Type = ARTERIAL Ordering Provider: MAZIN ARREDONDO Report Released Date/Time: Jul 03, 2024 01:48 PM Reporting Lab: [facility] [address] Performing Lab: [facility] [address] POC PH 7.387 7.35-7.45 POC PCO2 34.4 [...] Jul 03, 2024 01:48 PM Reporting Lab: [facility] [address] Performing Lab: [facility] [address] POC PH 7.280 L 7.35-7.45 POC PCO2 [...] Jun 12, 2024 04:01 PM Reporting Lab: [facility] [address] Performing Lab: [facility] [address] URINE COLOR YELLOW SPECIFIC GRAVITY 1.031 1.003-1.03 [...] Jun 12, 2024 03:59 PM Reporting Lab: [facility] [address] Performing Lab: [facility] [address] WBC 15.8 H 4.0-11.0 RBC 5.11 4.60-6.20 [...] Jun 23, 2024 06:07 PM Reporting Lab: [facility] [address] Performing Lab: [facility] [address] CREATININE 0.8 mg/dL 0.7-1.2 UREA NITROGEN 13 [...] Jun 23, 2024 06:07 PM Reporting Lab: [facility] [address] Performing Lab: [facility] [address] WBC 15.5 H 4.0-11.0 RBC 4.93 4.60-6.20 [...] Jun 22, 2024 05:51 PM Reporting Lab: [facility] [address] Performing Lab: [facility] [address] CREATININE 0.7 mg/dL 0.7-1.2 UREA NITROGEN 16 [...] Jun 22, 2024 05:51 PM Reporting Lab: [facility] [address] Performing Lab: [facility] [address] WBC 14.9 H 4.0-11.0 RBC 5.09 4.60-6.20 [...] Jun 22, 2024 05:51 PM Reporting Lab: [facility] [address] Performing Lab: [facility] [address] CREATININE 0.7 mg/dL 0.7-1.2 UREA NITROGEN 17 [...] Jun 22, 2024 05:51 PM Reporting Lab: [facility] [address] Performing Lab: [facility] [address] WBC 16.9 H 4.0-11.0 RBC 5.28 4.60-6.20 [...] Jun 21, 2024 05:45 PM Reporting Lab: [facility] [address] Performing Lab: [facility] [address] URINE COLOR YELLOW SPECIFIC GRAVITY 1.041 H [...] Jun 21, 2024 06:07 PM Reporting Lab: [facility] [address] Performing Lab: [facility] [address] POC CREATININE 1.1 mg/dL 0.6-1.3 Jun 21, 2024 05:30 PM [facility] POC ABG/LACTATE Specimen Type: VENOUS BLOOD No comment entered. Ordering Provider: DELIA MARTINEZ Report Released Date/Time: Jun 21, 2024 06:07 PM Reporting Lab: [facility] [address] Performing Lab: [facility] [address] POC PH 7.470 H 7.31-7.41 POC PCO2 [...] Jun 21, 2024 05:30 PM Reporting Lab: [facility] [address] Performing Lab: [facility] [address] .INR 1.2 H 0.8-1.1 .PT 13.9 s H 9.4-12.5 Jun 21, 2024 05:24 PM [facility] LIPASE Specimen Type: PLASMA No comment entered. Ordering Provider: DELIA MARTINEZ Report Released Date/Time: Jun 21, 2024 05:30 PM Reporting Lab: [facility] [address] Performing Lab: [facility] [address] LIPASE 32 U/L <60 Jun 21, 2024 05:24 PM [facility] EXTRA GOLD GEL TUBE Specimen Type: SERUM No comment entered. Ordering Provider: DELIA MARTINEZ Report Released Date/Time: Jun 21, 2024 05:41 PM Reporting Lab: [facility] [address] Performing Lab: [facility] [address] EXTRA GOLD GEL TUBE RECEIVED Jun 21, 2024 05:24 PM [facility] COMPREHENSIVE METABOLIC PANEL+MG Specimen Type: PLASMA No comment entered. Ordering Provider: DELIA MARTINEZ Report Released Date/Time: Jun 21, 2024 05:30 PM Reporting Lab: [facility] [address] Performing Lab: [facility] [address] CREATININE 0.9 mg/dL 0.7-1.2 UREA NITROGEN 29 [...] Jun 21, 2024 05:30 PM Reporting Lab: [facility] [address] Performing Lab: [facility] [address] WBC 21.3 H 4.0-11.0 RBC 5.48 4.60-6.20 [...] Source Jul 17, 2024 11:53 PM 6 [facility] Jul 17, 2024 10:52 PM 8 [facility] Jul 17, 2024 02:47 PM 7 [facility] Jul 17, 2024 07:09 AM 7 [facility] Social History: Smoking [...] 06:15 PM CHEST 1 VIEW: FLACA WEAVER [id number] -1950 M Exm Date: JUL 18, 2024@18:15 Req Phys: LEISA GOLDEN Pat Loc: 3ES/07-18-2024@19:00 Img Loc: MAIN X-RAY Service: [place] [address] (Case [id number] COMPLETE) CHEST 1 VIEW (RAD Detailed) CPT:64025 Proc Modifiers : PORTABLE EXAM Reason for Study: SOB Clinical History: IS NOT under investigation for COVID-19 or is COVID-19 negative 73 yo with SOB Responsible provider name and phone number to notify for critical findings if other than user placing the order and pager listed below: User placing orders pager: [phone] LAST CREATININE 1.2 (07/17/24) Report Status: Verified Date Reported: JUL 18, 2024 Date Verified: JUL 18, 2024 Delivery Room Supervisor E-Sig:/ES/CARLOS A CUNNINGHAM DO Report: EXAMINATION: CHEST 1 VIEW Reason for Study: SOB [place] IS NOT under investigation for COVID-19 or is COVID-19 negative 73 yo with SOB Responsible provider name and phone number to notify for critical findings if other than user placing the order and pager listed below: User placing orders pager: [phone] LAST CREATININE 1.2 (07/17/24) SOB TECHNIQUE: Single [...] Otherwise negative chest radiograph. Primary Interpreting Staff: CARLO SA CUNNINGHAM DO, RADIOLOGIST (Delivery Room Supervisor) /[facility] CARLOS A CUNNINGHAM [facility] Jul 16, 2024 07:49 AM [facility] CT ABDOMEN/PELVIS: FLACA WEAVER [id number] -1950 M Exm Date: JUL 16, 2024@07:49 Req Phys: JATINDER CABRERA Loc: 07-17-2024@09:02 Img Loc: OUTSOURCE CT Service: Unknown (Case [id number] COMPLETE) NON [place] CT ABDOMEN/PELVIS (CT Detailed) CPT:88683 Reason for Study: outside study Clinical History: [...] Diagnostic Code: VERIFIED BY: / *ELECTRONICALLY FILED* [facility] Jul 13, 2024 09:41 AM [facility] CT ABDOMEN/PELVIS: FLACA WEAVER [id number] -1950 M Exm Date: JUL 13, 2024@09:41 Req Phys: JATINDER CABRERA Pat Loc: 07-17-2024@09:08 Img Loc: OUTSOURCE CT Service: Unknown (Case [id number] COMPLETE) NON [place] CT ABDOMEN/PELVIS (CT Detailed) CPT:67583 Reason for Study: outside study Clinical History: [...] Diagnostic Code: VERIFIED BY: / *ELECTRONICALLY FILED* [facility] Jul 08, 2024 10:09 AM CHEST 2 VIEWS PA AND LAT: FLACA WEAVER [id number] -1950 M Exm Date: JUL 08, 2024@10:09 Req Phys: KATELYNN PERSON Pat Loc: [facility]/07-08-2024@11:49 Img Loc: MAIN X-RAY Service: [place] [address] (Case 24 COMPLETE) CHEST 2 VIEWS PA AND LAT (RAD Detailed) CPT:32186 Reason for Study: Uptrending WBC, POD 5 [...] 08, 2024 Date Verified: JUL 08, 2024 Delivery Room Supervisor E-Sig: Report: CHEST 2 VIEWS PA [...] cardiopulmonary disease. READING PHYSICIAN: Sarbjit Vaughn M.D. -[id number] 07/08/2024 12:46 [facility] National Teleradiology Program [phone] (For Medical Practitioner Use Only) Attention Patients / Veterans: If you have questions or concerns about these test results, please contact your ordering provider or primary care team. Primary Interpreting Staff: RADIOLOGY,OUTSIDE SERVICE, Staff Physician / RADIOLOGY,OUTSIDE SERVICE [facility] Jul 08, 2024 10:[address] (AP) ABDOMEN/PELVIS W CONTRAST: FLCAA WEAVER [id number] -1950 M Exm Date: JUL 08, 2024@10:00 Req Phys: KATELYNN PERSON Loc: 2KG/07-08-2024@12:07 Img Loc: CT IMAGING Service: [place] [address] (Case 22 COMPLETE) CT (AP) ABDOMEN/PELVIS W CONTRAST(CT Detailed) CPT:56918 Contrast Media : Non-ionic Iodinated Reason for [...] PLASMA .CREAT EGFR(CKD-E >90 Ref: >=60 Allergies: ([place] only) TERAZOSIN (Mar 13, 2015) Report Status: Verified Date Reported: JUL 08, 2024 Date Verified: JUL 08, 2024 Delivery Room Supervisor E-Sig: Report: CT (AP) ABDOMEN/PELVIS W [...] as noted above READING PHYSICIAN: Celestino Blanc -[id number] 07/08/2024 13:04 EST [facility] National Teleradiology Program [phone] (For Medical Practitioner Use Only) Attention Patients / Veterans: If you have questions or concerns about these test results, please contact your ordering provider or primary care team. Primary Interpreting Staff: RADIOLOGY,OUTSIDE SERVICE, Staff Physician / RADIOLOGY,OUTSIDE SERVICE [facility] Jun 22, 2024 11:49 AM ABSCESS DRAIN PLACEMENT PERITONEAL (P): FLACA WEAVER [id number] -1950 M Exm Date: JUN 22, 2024@11:49 Req Phys: ADINAANGELA Mcfarlane Pat Loc: [facility]/06-22-2024@17:14 Img Loc: INTERVENTIONAL RADIOLOGY Service: [facility] [place], [place] [address] (Case [id number] COMPLETE) IR PERITONEAL/RETROPERITONEAL PER(ANI Detailed) CPT:88937 Reason for Study: diverticulitis with abscess (Case 3570 COMPLETE) IR MOD SEDATION 10-22 MIN (ANI Detailed) CPT:44312 Clinical History: [place] IS NOT under investigation for COVID-19 or is COVID-19 negative 73 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 please place abscess drain. Contact number for responsible provider who can be reached for any questions or notifications of critical findings: [phone] n/a LAST CREATININE 0.9 (06/21/24) Report Status: Verified Date Reported: JUN 22, 2024 Date Verified: JUN 22, 2024 Delivery Room Supervisor E-Sig:/ES/LISA PENDLETON MD Report: PROCEDURES: Placement [...] Using real-time CT fluoroscopy, a 5 Chinese Lucent Sky centesis catheter was advanced into the collection [...] Primary Interpreting Staff: LISA PENDLETON MD, RADIOLOGIST (Delivery Room Supervisor) /JRLISA [facility] Jun 22, 2024 11:[address] NEEDLE PLACEMENT (P): FLACA WEAVER [id number] -1950 M Exm Date: JUN 22, 2024@11:48 Req Phys: ANGELA HOLDEN [facility] Loc: [facility]/06-22-2024@17:14 Img Loc: CT IMAGING Service: [place] [address] (Case [id number] COMPLETE) CT SCAN FOR NEEDLE PLACEMENT (CT Detailed) CPT:32202 Reason for Study: l pelvic abscess drain Clinical History: Report Status: Verified Date Reported: JUN 22, 2024 Date Verified: JUN 22, 2024 Delivery Room Supervisor E-Sig:/ES/LISA PENDLETON MD Report: PROCEDURES: Placement [...] Using real-time CT fluoroscopy, a 5 Chinese Z Planeesis catheter was advanced into the collection in [...] Primary Interpreting Staff: LISA PENDLETON MD, RADIOLOGIST (Delivery Room Supervisor) /JRT LISA PENDLETON [facility] Jun 21, 2024 06:[address] (AP) ABDOMEN/PELVIS (P): FLACA WEAVER [id number] -1950 M Ex Date: JUN 21, 2024@18:09 Req Phys: DELIA MARTINEZ Loc: [facility] EMERGENCY DEPT WALK-IN (Re Img Loc: CT IMAGING Service: [place] [address] (Case [id number] COMPLETE) CT (AP) ABDOMEN/PELVIS W CONTRAST(CT Detailed) CPT:36538 Contrast Media : Non-ionic Iodinated Reason for [...] PLASMA .CREAT EGFR(CKD-E >90 Ref: >=60 Allergies: ([place] only) TERAZOSIN (Mar 13, 2015) Defer to [...] 21, 2024 Date Verified: JUN 21, 2024 Delivery Room Supervisor E-Sig:/ES/CARLOS A CUNNINGHAM DO Report: EXAMINATION: [...] Interpreting Staff: CARLOS A CUNNINGHAM DO, RADIOLOGIST (Delivery Room Supervisor) /CARLOS A ROWELL [facility] [...] Reporting Lab: [facility] [CLIA# [id number]] [place] [address] Accession [UID]: [id number] [[id number]] Received: Jul 16, 2024@14:41 Collection sample: BLOOD Collection date: Jul 16, 2024 14:07 Provider: LEISA GOLDEN Comment on specimen: Manish WESTBROOK, RECEIVED 2 BLOOD CULTURE BOTTLES Test(s) ordered: CULTURE & SUSCEPTIBILITY...... completed: Jul 22, 2024 * BACTERIOLOGY FINAL REPORT => Jul 22, 2024 13:39 TECH CODE: [id number] CULTURE RESULTS: NO GROWTH 5 DAYS Bacteriology Remark(s): THIS REPORT IS FINAL =--=--=--=--=--=--=--=--=--= --=--=--=--=--=--=--=--=--=- -=--=--=--=--=--=--=-- Performing Laboratory: Bacteriology Report Performed By: [facility] [CLIA# [id number]] [place] [address] [facility] Jul 16, 2024 01:54 PM LR MICROBIOLOGY RE PORT: Reporting Lab: [facility] [CLIA# [id number]] [place] [address] Accession [UID]: [id number] [[id number]] Received: Jul 16, 2024@14:41 Collection sample: BLOOD Collection date: Jul 16, 2024 13:54 Provider: LEISA GOLDEN Comment on specimen: L AC, RECEIVED 2 BLOOD CULTURE BOTTLES Test(s) ordered: CULTURE & SUSCEPTIBILITY...... completed: Jul 22, 2024 * BACTERIOLOGY FINAL REPORT => Jul 22, 2024 13:39 TECH CODE: [id number] CULTURE RESULTS: NO GROWTH 5 DAYS Bacteriology Remark(s): THIS REPORT IS FINAL =--=--=--=--=--=--=--=--=--= --=--=--=--=--=--=--=--=--=- -=--=--=--=--=--=--=-- Performing Laboratory: Bacteriology Report Performed By: [facility] [CLIA# [id number]] [place] [address] [facility] Jul 03, 2024 05:59 AM LR SURGICAL PATHOL OGY REPORT: LOCAL TITLE: LR SURGICAL PATHOLOGY REPORT STANDARD TITLE: PATHOLOGY REPORT DATE OF NOTE: JUL 06, 2024@10:40:48 ENTRY DATE: JUL 06, 2024@10:40:48 AUTHOR: EDUARDO PALOMARES EXP COSIGNER: URGENCY: STATUS: COMPLETED $APHDR Reporting Lab: [facility] [CLIA# [id number]] [place] [address] - - - - - - - [...] - PATHOLOGY REPORT Accession No. [id number] - - - - - - - [...] - PATHOLOGY REPORT Accession No. [id number] - - - - - - - [...] Second circumferential surgical margin, en face; E-F: Chicken And Fish Cleaner diverticula; G: Chicken And Fish Cleaner section of mesentery; H: Random paper sales representative section of additional adipose tissue [...] One colonic tissue ring, bisected transversely. [facility]. [facility]: Microscopic examination performed. DIAGNOSIS: 1. Colon, sigmoid, sigmoidectomy-- - Diverticulosis with perforation and focal abscess formation 2. Colon, anastomotic rings, excision-- - Viable colonic mucosa without diagnostic abnormality /es/ EDUARDO PALOMARES MD STAFF PATHOLOGIST Signed Jul 06, 2024@10:40 Performing Laboratory: Surgical Pathology Report Performed By: [facility] [CLIA# [id number]] [place] [address] $FTR - - - - - - [...] - - MEGFLACA LOBO STANDARD FORM 515 ID:[id number] SEX:M :1950 AGE: 73 LOC:93664 ADM:Jun DX:DIVERTICULITIS PCP: Jatinder Cabrera /alexi/ EDUARDO PALOMARES MD STAFF PATHOLOGIST Signed: 07/06/2024 10:40 EDUARDO PALOMARES [facility] Jun 22, 2024 01:15 PM LR MICROBIOLOGY RE PORT: Reporting Lab: [facility] [CLIA# [id number]] [place] [address] Accession [UID]: [id number] [[id number]] Received: Jun 22, 2024@13:38 Collection sample: FLUID Collection date: Jun 22, 2024 13:15 Provider: ANGELA HOLDEN Comment on specimen: LLQ ABSCESS, RECEIVED IN ANAEROBIC TRANSPORT VIAL Test(s) ordered: GRAM STAIN.................... completed: Jun 22, 2024 15:03 CULTURE & SUSCEPTIBILITY...... completed: Jun 25, 2024 * BACTERIOLOGY FINAL REPORT => Jun 25, 2024 10:56 TECH CODE: [id number] GRAM STAIN: DIRECT SMEAR of specimen before [...] Performed By: [facility] [CLIA# [id number]] [place] [address] [facility] Jun 22, 2024 01:15 PM LR MICROBIOLOGY RE PORT: Reporting Lab: [facility] [CLIA# [id number]] [place] [address] Accession [UID]: [id number] [[id number]] Received: Jun 22, 2024@13:38 Collection sample: FLUID Collection date: Jun 22, 2024 13:15 Provider: ANGELA HOLDEN Comment on specimen: LLQ ABSCESS, RECEIVED IN ANAEROBIC TRANSPORT VIAL Test(s) ordered: ANAEROBIC CULTURE............. completed: Jun 28, 2024 * BACTERIOLOGY FINAL REPORT => Jun 28, 2024 10:08 TECH CODE: [id number] CULTURE RESULTS: HEAVY GROWTH MIXED ANAEROBES Comment: [...] Performed By: [facility] [CLIA# [id number]] [place] [address] [facility] Jun 21, 2024 06:12 PM LR MICROBIOLOGY RE PORT: Reporting Lab: [facility] [IA# [id number]] [place] [address] Accession [UID]: [id number] [[id number]] Received: Jun 21, 2024@18:12 Collection sample: BLOOD [...] Performed By: [facility] [CLIA# [id number]] [place] [address] [facility] Jun 21, 2024 06:11 PM LR MICROBIOLOGY RE PORT: Reporting Lab: [facility] [CLIA# [id number]] [address] [place] [address] Accession [UID]: [id number] [[id number]] Received: Jun 21, 2024@18:11 Collection sample: BLOOD [...] Performed By: [facility] [CLIA# [id number]] [place] [address] [facility]
--- OUTSIDE RECORDS SUMMARY | 2024-08-01 07:58 | XMS_ITS ---
[place] DAILY HOSPITALIZATION DATA [facility] Encounter Summary Created on: August 01, 2024 MEG FLACADARCI LOBO : 1950 Sex: Male Author Name [facility] [place] [facility] [place] [facility] [place] Address [address] [place] [address] Care Team Providers Care Valve Mechanic Name Role Phone JATINDER CABRERA Primary [...] PART A Sep 29, 2016 PART A [phone] JUDY WEAVER PATIENT Selected Encounter This section includes the information on record at [place] for the Encounter. Date/Time Encounter Type Encounter Description Reason Pro vider Source Jul 17, 2024 09:12 PM Inpatient Visit DAILY HOSPITALIZATION DATA I[facility] [...] Range Comment Jul 21, 2024 10:38 AM [facility] BASIC METABOLIC PANEL+MG Specimen Type: PLASMA No comment entered. Ordering Provider: SARAI GOLDEN Report Released Date/Time: Jul 20, 2024 06:50 PM Reporting Lab: [facility] [address] Performing Lab: [facility] [address] CREATININE 0.8 mg/dL 0.7-1.2 UREA NITROGEN 31 mg/dL H 8-26 GLUCOSE 120 mg/dL H 70-100 SODIUM 125 mmol/L L 136-145 POTASSIUM 4.4 mmol/L 3.5-5.1 CHLORIDE 100 mmol/L 98-107 CO2 17 mmol/L L 22-29 CALCIUM 9.6 mg/dL 8.4-10.2 MAGNESIUM 1.9 mg/dL 1.6-2.6 ANION GAP 8 mmol/L 5-15 .CREAT EGFR(CKD-EPI) >90 >60 Jul 21, 2024 10:38 AM [facility] CBC Specimen Type: BLOOD No comment entered. Ordering Provider: SARAI GOLDEN Report Released Date/Time: Jul 20, 2024 06:50 PM Reporting Lab: [facility] [address] Performing Lab: [facility] [address] WBC 16.0 H 4.0-11.0 RBC 5.16 4.60-6.20 HGB 15.8 g/dL 13.5-17.9 HCT 45.5 41.0-54.0 MCV 88.2 fL 80.0-100.0 MCH 30.6 pg 27.0-33.0 MCHC 34.7 g/dL 32.0-37.5 PLT 428 H 150-400 MPV 10.8 fL 9.1-13.0 RDW 13.6 11.5-14.5 Jul 20, 2024 01:00 PM [facility] SODIUM,URINE RANDOM Specimen Type: URINE No comment entered. Ordering Provider: SARAI GOLDEN Report Released Date/Time: Jul 20, 2024 08:22 AM Reporting Lab: [facility] [address] Performing Lab: [facility] [address] SODIUM,URINE RANDOM <20 mmol/L Jul 20, 2024 01:00 PM [facility] OSMOLALITY,URINE Specimen Type: URINE No comment entered. Ordering Provider: SARAI GOLDEN Report Released Date/Time: Jul 20, 2024 08:22 AM Reporting Lab: [facility] [address] Performing Lab: [facility] [address] OSMOLALITY,URIN E 648 mosm/kg 500-800 Jul 20, 2024 06:45 AM [facility] BASIC METABOLIC PANEL+MG Specimen Type: PLASMA No comment entered. Ordering Provider: SARAI GOLDEN Report Released Date/Time: Jul 19, 2024 06:13 PM Reporting Lab: [facility] [address] Performing Lab: [facility] [address] CREATININE 0.8 mg/dL 0.7-1.2 UREA NITROGEN 36 mg/dL H 8-26 GLUCOSE 111 mg/dL H 70-100 SODIUM 121 mmol/L L 136-145 POTASSIUM 4.1 mmol/L 3.5-5.1 CHLORIDE 99 mmol/L 98-107 CO2 14 mmol/L L 22-29 CALCIUM 9.5 mg/dL 8.4-10.2 MAGNESIUM 1.8 mg/dL 1.6-2.6 ANION GAP 8 mmol/L 5-15 .CREAT EGFR(CKD-EPI) >90 >60 Jul 20, 2024 06:43 AM [facility] CBC & DIFF Specimen Type: BLOOD Comment: Automated Differential Performed Ordering Provider: SARAI GOLDEN Report Released Date/Time: Jul 19, 2024 06:13 PM Reporting Lab: [facility] [address] Performing Lab: [facility] [address] WBC 16.6 H 4.0-11.0 RBC 4.96 4.60-6.20 [...] H 0.0-0.1 Jul 20, 2024 05:30 AM [facility] OSMOLALITY,SERUM Specimen Type: SERUM No comment entered. Ordering Provider: SARAI GOLDEN Report Released Date/Time: Jul 20, 2024 09:47 AM Reporting Lab: [facility] [address] Performing Lab: [facility] [address] OSMOLALITY,SERU M 266 mosm/kg L 276-305 Jul 19, 2024 08:57 AM [facility] BASIC METABOLIC PANEL+MG Specimen Type: PLASMA No comment entered. Ordering Provider: SARAI GOLDEN Report Released Date/Time: Jul 18, 2024 10:24 PM Reporting Lab: [facility] [address] Performing Lab: [facility] [address] CREATININE 1.0 mg/dL 0.7-1.2 UREA NITROGEN 40 mg/dL H 8-26 GLUCOSE 104 mg/dL H 70-100 SODIUM 129 mmol/L L 136-145 POTASSIUM 3.3 mmol/L L 3.5-5.1 CHLORIDE 104 mmol/L 98-107 CO2 16 mmol/L L 22-29 CALCIUM 8.0 mg/dL L 8.4-10.2 MAGNESIUM 1.7 mg/dL 1.6-2.6 ANION GAP 9 mmol/L 5-15 .CREAT EGFR(CKD-EPI) 80 >60 Jul 19, 2024 08:57 AM [facility] CBC Specimen Type: BLOOD No comment entered. Ordering Provider: SARAI GOLDEN Report Released Date/Time: Jul 18, 2024 10:24 PM Reporting Lab: [facility] [address] Performing Lab: [facility] [address] WBC 17.3 H 4.0-11.0 RBC 4.83 4.60-6.20 HGB 14.8 g/dL 13.5-17.9 HCT 42.6 41.0-54.0 MCV 88.2 fL 80.0-100.0 MCH 30.6 pg 27.0-33.0 MCHC 34.7 g/dL 32.0-37.5 PLT 456 H 150-400 MPV 10.8 fL 9.1-13.0 RDW 13.7 11.5-14.5 Jul 17, 2024 06:55 PM [facility] PHOSPHORUS Specimen Type: PLASMA No comment entered. Ordering Provider: SARAI GOLDEN Report Released Date/Time: Jul 17, 2024 01:54 PM Reporting Lab: [facility] [address] Performing Lab: [facility] [address] PHOSPHORUS 2.9 mg/dL 2.3-4.3 Jul 17, 2024 06:55 PM [facility] BASIC METABOLIC PANEL+MG Specimen Type: PLASMA No comment entered. Ordering Provider: SARAI GOLDEN Report Released Date/Time: Jul 17, 2024 01:54 PM Reporting Lab: [facility] [address] Performing Lab: [facility] [address] CREATININE 1.2 mg/dL 0.7-1.2 UREA NITROGEN 62 mg/dL H 8-26 GLUCOSE 116 mg/dL H 70-100 SODIUM 128 mmol/L L 136-145 POTASSIUM 3.8 mmol/L 3.5-5.1 CHLORIDE 100 mmol/L 98-107 CO2 16 mmol/L L 22-29 CALCIUM 9.3 mg/dL 8.4-10.2 MAGNESIUM 2.1 mg/dL 1.6-2.6 ANION GAP 12 mmol/L 5-15 .CREAT EGFR(CKD-EPI) 64 >60 Jul 17, 2024 07:00 AM [facility] CBC & DIFF Specimen Type: BLOOD Comment: Manual Differential Performed Ordering Provider: SARAI GOLDEN Report Released Date/Time: Jul 16, 2024 04:52 PM Reporting Lab: [facility] [address] Performing Lab: [facility] [address] WBC 18.9 H 4.0-11.0 RBC 5.55 4.60-6.20 [...] MORPHOLOGY PRESENT Jul 17, 2024 07:00 AM [facility] ALBUMIN Specimen Type: PLASMA No comment entered. Ordering Provider: ASRAI GOLDEN Report Released Date/Time: Jul 16, 2024 12:12 PM Reporting Lab: [facility] [address] Performing Lab: [facility] [address] ALBUMIN 4.3 g/dL 3.5-5.0 Jul 17, 2024 07:00 AM [facility] COMPREHENSIVE METABOLIC PANEL+MG Specimen Type: PLASMA No comment entered. Ordering Provider: SARAI GOLDEN Report Released Date/Time: Jul 16, 2024 04:52 PM Reporting Lab: [facility] [address] Performing Lab: [facility] [address] CREATININE 1.3 mg/dL H 0.7-1.2 UREA NITROGEN [...] L >60 Jul 16, 2024 07:10 PM [facility] LACTIC ACID Specimen Type: PLASMA No comment entered. Ordering Provider: SARAI GOLDEN Report Released Date/Time: Jul 16, 2024 12:12 PM Reporting Lab: [facility] [address] Performing Lab: [facility] [address] LACTIC ACID 0.9 mmol/L 0.5-2.2 Jul 16, 2024 02:14 PM [facility] MRSA SURVL NARES DNA Specimen Type: NARES No comment entered. Ordering Provider: SARAI GOLDEN Report Released Date/Time: Jul 16, 2024 12:12 PM Reporting Lab: [facility] [address] Performing Lab: [facility] [address] MRSA SURVL NARES DNA NEGATIVE Negative Jul 16, 2024 02:10 PM [facility] LACTIC ACID Specimen Type: PLASMA No comment entered. Ordering Provider: SARAI GOLDEN Report Released Date/Time: Jul 16, 2024 12:12 PM Reporting Lab: [facility] [address] Performing Lab: [facility] [address] LACTIC ACID 0.9 mmol/L 0.5-2.2 Jul 16, 2024 02:08 PM [facility] CBC & DIFF Specimen Type: BLOOD Comment: Manual Differential Performed Ordering Provider: SARAI GOLDEN Report Released Date/Time: Jul 16, 2024 12:12 PM Reporting Lab: [facility] [address] Performing Lab: [facility] [address] WBC 19.7 H 4.0-11.0 RBC 5.39 4.60-6.20 [...] BASO 0.0 0.0-0.2 .RBC MORPHOLOGY PRESENT Jul 16, 2024 02:08 PM [facility] COMPREHENSIVE METABOLIC PANEL+MG Specimen Type: PLASMA No comment entered. Ordering Provider: SARAI GOLDEN Report Released Date/Time: Jul 16, 2024 12:12 PM Reporting Lab: [facility] [address] Performing Lab: [facility] [address] CREATININE 2.0 mg/dL H 0.7-1.2 UREA NITROGEN [...] 11-34 .CREAT EGFR(CKD-EPI) 35 L >60 Jul 10, 2024 07:16 AM [facility] PHOSPHORUS Specimen Type: PLASMA No comment entered. Ordering Provider: JUANCARLOS ECHOLS Report Released Date/Time: Jul 09, 2024 12:23 PM Reporting Lab: [facility] [address] Performing Lab: [facility] [address] PHOSPHORUS 3.0 mg/dL 2.3-4.3 Jul 10, 2024 07:16 AM [facility] BASIC METABOLIC PANEL+MG Specimen Type: PLASMA No comment entered. Ordering Provider: JUANCARLOS ECHOLS S Report Released Date/Time: Jul 09, 2024 12:23 PM Reporting Lab: [facility] [address] Performing Lab: [facility] [address] CREATININE 0.7 mg/dL 0.7-1.2 UREA NITROGEN 27 [...] Reporting Lab: [facility] [address] Performing Lab: [facility] [address] WBC 18.8 H 4.0-11.0 RBC 5.08 4.60-6.20 [...] Reporting Lab: [facility] [address] Performing Lab: [facility] [address] WBC 15.3 H 4.0-11.0 RBC 4.91 4.60-6.20 [...] Reporting Lab: [facility] [address] Performing Lab: [facility] [address] URINE COLOR YELLOW SPECIFIC GRAVITY >1.050 H [...] Reporting Lab: [facility] [address] Performing Lab: [facility] [address] WBC 17.5 H 4.0-11.0 RBC 4.88 4.60-6.20 [...] Reporting Lab: [facility] [address] Performing Lab: [facility] [address] PHOSPHORUS 2.6 mg/dL 2.3-4.3 Jul 08, 2024 09:54 AM [facility] BASIC METABOLIC PANEL+MG Specimen Type: PLASMA Comment: Specimen received in Lab at: [id number] Ordering Provider: JUANCARLOS ECHOLS Report Released Date/Time: Jul 07, 2024 04:49 PM Reporting Lab: [facility] [address] Performing Lab: [facility] [address] CREATININE 0.9 mg/dL 0.7-1.2 UREA NITROGEN 26 [...] Reporting Lab: [facility] [address] Performing Lab: [facility] [address] C DIFF TOX B GENE PCR NEGATIVE Negative Jul 07, 2024 07:41 AM [facility] PHOSPHORUS Specimen Type: PLASMA No comment entered. Ordering Provider: JEVON ZAZUETA Report Released Date/Time: Jul 06, 2024 03:44 PM Reporting Lab: [facility] [address] Performing Lab: [facility] [address] PHOSPHORUS 3.1 mg/dL 2.3-4.3 Jul 07, 2024 07:41 AM [facility] BASIC METABOLIC PANEL+MG Specimen Type: PLASMA No comment entered. Ordering Provider: JEVON ZAZUETA Report Released Date/Time: Jul 06, 2024 03:44 PM Reporting Lab: [facility] [address] Performing Lab: [facility] [address] CREATININE 0.9 mg/dL 0.7-1.2 UREA NITROGEN 20 [...] Reporting Lab: [facility] [address] Performing Lab: [facility] [address] WBC 21.2 H 4.0-11.0 RBC 5.09 4.60-6.20 [...] Reporting Lab: [facility] [address] Performing Lab: [facility] [address] WBC 18.0 H 4.0-11.0 RBC 4.83 4.60-6.20 [...] Reporting Lab: [facility] [address] Performing Lab: [facility] [address] PHOSPHORUS 3.6 mg/dL 2.3-4.3 Jul 06, 2024 07:21 AM [facility] BASIC METABOLIC PANEL+MG Specimen Type: PLASMA No comment entered. Ordering Provider: JEVON ZAZUETA Report Released Date/Time: Jul 05, 2024 01:22 PM Reporting Lab: [facility] [address] Performing Lab: [facility] [address] CREATININE 0.7 mg/dL 0.7-1.2 UREA NITROGEN 12 [...] Reporting Lab: [facility] [address] Performing Lab: [facility] [address] MAGNESIUM 2.0 mg/dL 1.6-2.6 Jul 05, 2024 07:17 AM [facility] PHOSPHORUS Specimen Type: PLASMA No comment entered. Ordering Provider: JUANCARLOS ECHOLS S Report Released Date/Time: Jul 04, 2024 09:39 AM Reporting Lab: [facility] [address] Performing Lab: [facility] [address] PHOSPHORUS 2.0 mg/dL L 2.3-4.3 Jul 05, 2024 07:17 AM [facility] BASIC METABOLIC PANEL+MG Specimen Type: PLASMA No comment entered. Ordering Provider: JUANCARLOS ECHOLS S Report Released Date/Time: Jul 04, 2024 09:39 AM Reporting Lab: [facility] [address] Performing Lab: [facility] [address] CREATININE 0.7 mg/dL 0.7-1.2 UREA NITROGEN 12 [...] Reporting Lab: [facility] [address] Performing Lab: [facility] [address] WBC 18.3 H 4.0-11.0 RBC 4.49 L [...] Reporting Lab: [facility] [address] Performing Lab: [facility] [address] CREATININE 0.7 mg/dL 0.7-1.2 UREA NITROGEN 16 [...] Reporting Lab: [facility] [address] Performing Lab: [facility] [address] PHOSPHORUS 2.8 mg/dL 2.3-4.3 Jul 04, 2024 07:16 AM [facility] CBC Specimen Type: BLOOD No comment entered. Ordering Provider: GABINO CAMERON Report Released Date/Time: Jul 03, 2024 06:31 PM Reporting Lab: [facility] [address] Performing Lab: [facility] [address] WBC 20.6 H 4.0-11.0 RBC 4.63 4.60-6.20 [...] Reporting Lab: [facility] [address] Performing Lab: [facility] [address] WBC 20.6 H 4.0-11.0 RBC 4.63 4.60-6.20 [...] Reporting Lab: [facility] [address] Performing Lab: [facility] [address] BNP 292 pg/mL H <99 Jul 03, 2024 10:32 PM [facility] FINGERSTICK GLUCOSE Specimen Type: BLOOD Comment: Save Result Nurse Notified Ordering Provider: KATELYNN PERSON Report Released Date/Time: Jul 03, 2024 10:50 PM Reporting Lab: [facility] [address] Performing Lab: [facility] [address] FINGERSTICK GLUCOSE 126 mg/dL H 70-100 Jul 03, 2024 05:33 PM [facility] [place] GLUCOSE Specimen Type: BLOOD Comment: Save Result Nurse Notified Ordering Provider: KATELYNN PERSON Report Released Date/Time: Jul 03, 2024 05:46 PM Reporting Lab: [facility] [address] Performing Lab: [facility] [address] FINGERSTICK GLUCOSE 141 mg/dL H 70-100 Jul 03, 2024 02:31 PM [facility] POC ABG/ELECTROLYTES Specimen Type: ARTERIAL BLOOD Comment: FIO2 = 97% Patient Temp: 36.0 C Sample Type = ARTERIAL Ordering Provider: MAZIN ARREDONDO Report Released Date/Time: Jul 03, 2024 01:48 PM Reporting Lab: [facility] [address] Performing Lab: [facility] [address] POC PH 7.387 7.35-7.45 POC PCO2 34.4 [...] Reporting Lab: [facility] [address] Performing Lab: [facility] [address] POC PH 7.280 L 7.35-7.45 POC PCO2 [...] Reporting Lab: [facility] [address] Performing Lab: [facility] [address] URINE COLOR YELLOW SPECIFIC GRAVITY 1.031 1.003-1.03 [...] Reporting Lab: [facility] [address] Performing Lab: [facility] [address] WBC 15.8 H 4.0-11.0 RBC 5.11 4.60-6.20 [...] Reporting Lab: [facility] [address] Performing Lab: [facility] [address] CREATININE 0.8 mg/dL 0.7-1.2 UREA NITROGEN 13 [...] Reporting Lab: [facility] [address] Performing Lab: [facility] [address] WBC 15.5 H 4.0-11.0 RBC 4.93 4.60-6.20 [...] Reporting Lab: [facility] [address] Performing Lab: [facility] [address] CREATININE 0.7 mg/dL 0.7-1.2 UREA NITROGEN 16 [...] Reporting Lab: [facility] [address] Performing Lab: [facility] [address] WBC 14.9 H 4.0-11.0 RBC 5.09 4.60-6.20 [...] Reporting Lab: [facility] [address] Performing Lab: [facility] [address] WBC 16.9 H 4.0-11.0 RBC 5.28 4.60-6.20 [...] Reporting Lab: [facility] [address] Performing Lab: [facility] [address] CREATININE 0.7 mg/dL 0.7-1.2 UREA NITROGEN 17 [...] Reporting Lab: [facility] [address] Performing Lab: [facility] [address] URINE COLOR YELLOW SPECIFIC GRAVITY 1.041 H [...] Reporting Lab: [facility] [address] Performing Lab: [facility] [address] POC CREATININE 1.1 mg/dL 0.6-1.3 Jun 21, 2024 05:30 PM [facility] POC ABG/LACTATE Specimen Type: VENOUS BLOOD No comment entered. Ordering Provider: DELIA MARTINEZ Report Released Date/Time: Jun 21, 2024 06:07 PM Reporting Lab: [facility] [address] Performing Lab: [facility] [address] POC PH 7.470 H 7.31-7.41 POC PCO2 [...] Reporting Lab: [facility] [address] Performing Lab: [facility] [address] .INR 1.2 H 0.8-1.1 .PT 13.9 s H 9.4-12.5 Jun 21, 2024 05:24 PM [facility] LIPASE Specimen Type: PLASMA No comment entered. Ordering Provider: DELIA MARTINEZ Report Released Date/Time: Jun 21, 2024 05:30 PM Reporting Lab: [facility] [address] Performing Lab: [facility] [address] LIPASE 32 U/L <60 Jun 21, 2024 05:24 PM [facility] EXTRA GOLD GEL TUBE Specimen Type: SERUM No comment entered. Ordering Provider: DELIA MARTINEZ Report Released Date/Time: Jun 21, 2024 05:41 PM Reporting Lab: [facility] [address] Performing Lab: [facility] [address] EXTRA GOLD GEL TUBE RECEIVED Jun 21, 2024 05:24 PM [facility] COMPREHENSIVE METABOLIC PANEL+MG Specimen Type: PLASMA No comment entered. Ordering Provider: DELIA MARTINEZ Report Released Date/Time: Jun 21, 2024 05:30 PM Reporting Lab: [facility] [address] Performing Lab: [facility] [address] CREATININE 0.9 mg/dL 0.7-1.2 UREA NITROGEN 29 [...] Reporting Lab: [facility] [address] Performing Lab: [facility] [address] WBC 21.3 H 4.0-11.0 RBC 5.48 4.60-6.20 [...] Source Jul 17, 2024 11:53 PM [facility] Jul 17, 2024 10:52 PM 8 [facility] Jul 17, 2024 02:47 PM 7 [facility] Jul 17, 2024 07:09 AM 7 [facility] Social History: Smoking Status (Most current) [...] 06:15 PM CHEST 1 VIEW: FLACA WEAVER [id number] -1950 M Exm Date: JUL 18, 2024@18:15 Req Phys: LEISA GOLDEN Pat Loc: 3ES/07-18-2024@19:00 Img Loc: MAIN X-RAY Service: [facility] [address] (Case [id number] COMPLETE) CHEST 1 VIEW (RAD Detailed) CPT:61953 Proc Modifiers : PORTABLE EXAM Reason for Study: SOB Clinical History: IS NOT under investigation for COVID-19 or is COVID-19 negative 73 yo with SOB Responsible provider name and phone number to notify for critical findings if other than user placing the order and pager listed below: User placing orders pager: [phone] LAST CREATININE 1.2 (07/17/24) Report Status: Verified Date Reported: JUL 18, 2024 Date Verified: JUL 18, 2024 Cargo Services Coordinator E-Sig:/ES/CARLOS A CUNNINGHAM DO Report: EXAMINATION: CHEST 1 VIEW Reason for Study: SOB [place]ship IS NOT under investigation for COVID-19 or is COVID-19 negative 73 yo with SOB Responsible provider name and phone number to notify for critical findings if other than user placing the order and pager listed below: User placing orders pager: [phone] LAST CREATININE 1.2 (07/17/24) SOB TECHNIQUE: Single [...] Interpreting Staff: CARLOS A CUNNINGHAM DO, RADIOLOGIST (Cargo Services Coordinator) /[facility] CARLOS A CUNNINGHAM [facility] Jul 16, 2024 07:49 AM [facility] CT ABDOMEN/PELVIS: FLACA WEAVER [id number] -1950 M Exm Date: JUL 16, 2024@07:49 Req Phys: JATINDER CABRERA Loc: 07-17-2024@09:02 Img Loc: OUTSOURCE CT Service: Unknown (Case [id number] COMPLETE) NON NC CT ABDOMEN/PELVIS (CT Detailed) CPT:15665 Reason for Study: outside study Clinical History: [...] VERIFIED BY: / *ELECTRONICALLY FILED* [facility] Jul 13, 2024 09:41 AM FORMERLY [facility], [facility] CT ABDOMEN/PELVIS: FLACA WEAVER [id number] -1950 M Exm Date: JUL 13, 2024@09:41 Req Phys: JATINDER CABRERA Pat Loc: 07-17-2024@09:08 Img Loc: OUTSOURCE CT Service: Unknown (Case [id number] COMPLETE) NON NC CT ABDOMEN/PELVIS (CT Detailed) CPT:29372 Reason for Study: outside study Clinical History: [...] VERIFIED BY: / *ELECTRONICALLY FILED* [facility] Jul 08, 2024 10:09 AM CHEST 2 VIEWS PA AND LAT: FLACA WEAVER [id number] -1950 M Exm Date: JUL 08, 2024@10:09 Req Phys: KATELYNN PERSON Pat Loc: [facility]/07-08-2024@11:49 Img Loc: MAIN X-RAY Service: [place] [address] (Case 24 COMPLETE) CHEST 2 VIEWS PA AND LAT (RAD Detailed) CPT:34774 Reason for Study: Uptrending WBC, POD 5 [...] 08, 2024 Date Verified: JUL 08, 2024 Cargo Services Coordinator E-Sig: Report: CHEST 2 VIEWS PA [...] cardiopulmonary disease. READING PHYSICIAN: Sarbjit Vaughn M.D. -[id number] 07/08/2024 12:46 [facility] National Teleradiology Program [phone] (For Medical Practitioner Use Only) Attention Patients / Veterans: If you have questions or concerns about these test results, please contact your ordering provider or primary care team. Primary Interpreting Staff: RADIOLOGY,OUTSIDE SERVICE, Staff Physician / RADIOLOGY,OUTSIDE SERVICE [facility] Jul 08, 2024 10:[address] (AP) ABDOMEN/PELVIS W CONTRAST: FLACA WEAVER [id number] -1950 M Exm Date: JUL 08, 2024@10:00 Req Phys: KATELYNN PERSON Loc: 2KG/07-08-2024@12:07 Img Loc: CT IMAGING Service: [place] [address] (Case 22 COMPLETE) CT (AP) ABDOMEN/PELVIS W CONTRAST(CT Detailed) CPT:91488 Contrast Media : Non-ionic Iodinated Reason for [...] PLASMA .CREAT EGFR(CKD-E >90 Ref: >=60 Allergies: ([place] only) TERAZOSIN (Mar 13, 2015) Report Status: Verified Date Reported: JUL 08, 2024 Date Verified: JUL 08, 2024 Cargo Services Coordinator E-Sig: Report: CT (AP) ABDOMEN/PELVIS W [...] as noted above READING PHYSICIAN: Celestino Blanc -[id number] 07/08/2024 13:04 EST [facility] National Teleradiology Program [phone] (For Medical Practitioner Use Only) Attention Patients / Veterans: If you have questions or concerns about these test results, please contact your ordering provider or primary care team. Primary Interpreting Staff: RADIOLOGY,OUTSIDE SERVICE, Staff Physician / RADIOLOGY,OUTSIDE SERVICE [facility] Jun 22, 2024 11:49 AM ABSCESS DRAIN PLACEMENT PERITONEAL (P): FLACA WEAVER [id number] -1950 M Exm Date: JUN 22, 2024@11:49 Req Phys: ADINAANGELA Mcfarlane Pat Loc: [facility]/06-22-2024@17:14 Img Loc: INTERVENTIONAL RADIOLOGY Service: [facility] [place], [place] [address] (Case [id number] COMPLETE) IR PERITONEAL/RETROPERITONEAL PER(ANI Detailed) CPT:71660 Reason for Study: diverticulitis with abscess (Case [id number] COMPLETE) IR MOD SEDATION 10-22 MIN (ANI Detailed) CPT:68728 Clinical History: [facility] IS NOT under investigation for COVID-19 or is COVID-19 negative 73 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 please place abscess drain. Contact number for responsible provider who can be reached for any questions or notifications of critical findings: [phone] n/a LAST CREATININE 0.9 (06/21/24) Report Status: Verified Date Reported: JUN 22, 2024 Date Verified: JUN 22, 2024 Cargo Services Coordinator E-Sig:/ES/LISA PENDLETON MD Report: PROCEDURES: Placement [...] real-time CT fluoroscopy, a 5 [place] [employer] centesis catheter was advanced into the collection [...] Primary Interpreting Staff: LISA PENDLETON MD, RADIOLOGIST (Cargo Services Coordinator) /JRLISA [facility] Jun 22, 2024 11:[address] NEEDLE PLACEMENT (P): FLACA WEAVER [id number] -1950 M Exm Date: JUN 22, 2024@11:48 Req Phys: ANGELA HOLDEN [facility] Loc: [facility]/06-22-2024@17:14 Img Loc: CT IMAGING Service: [place] [address] (Case [id number] COMPLETE) CT SCAN FOR NEEDLE PLACEMENT (CT Detailed) CPT:71443 Reason for Study: l pelvic abscess drain Clinical History: Report Status: Verified Date Reported: JUN 22, 2024 Date Verified: JUN 22, 2024 Cargo Services Coordinator E-Sig:/ES/LISA PENDLETON MD Report: PROCEDURES: Placement [...] real-time CT fluoroscopy, a 5 [place] [employer] catheter was advanced into the collection in [...] Primary Interpreting Staff: LISA PENDLETON MD, RADIOLOGIST (Cargo Services Coordinator) /JRT LISA PENDLETON [facility] Jun 21, 2024 06:[address] (AP) ABDOMEN/PELVIS (P): FLACA WEAVER [id number] -1950 M Ex Date: JUN 21, 2024@18:09 Req Phys: DELIA MARTINEZ Loc: [facility] (Re Img Loc: CT IMAGING Service: [place] [address] (Case [id number] COMPLETE) CT (AP) ABDOMEN/PELVIS W CONTRAST(CT Detailed) CPT:60701 Contrast Media : Non-ionic Iodinated Reason for [...] PLASMA .CREAT EGFR(CKD-E >90 Ref: >=60 Allergies: ([place] only) TERAZOSIN (Mar 13, 2015) Defer to [...] 21, 2024 Date Verified: JUN 21, 2024 Cargo Services Coordinator E-Sig:/ES/CARLOS A CUNNINGHAM DO Report: EXAMINATION: CT [...] Interpreting Staff: CARLOS A CUNNINGHAM DO, RADIOLOGIST (Cargo Services Coordinator) /CARLOS A ROWELL [facility] Pathology Reports: [...] RE PORT: Reporting Lab: [facility] [CLIA# [id number]] [place] [address] Accession [UID]: [id number] [[id number]] Received: Jul 16, 2024@14:41 Collection sample: BLOOD Collection date: Jul 16, 2024 14:07 Provider: LEISA GOLDEN Comment on specimen: Manish WESTBROOK, RECEIVED 2 BLOOD CULTURE BOTTLES Test(s) ordered: CULTURE & SUSCEPTIBILITY...... completed: Jul 22, 2024 * BACTERIOLOGY FINAL REPORT => Jul 22, 2024 13:39 TECH CODE: [id number] CULTURE RESULTS: NO GROWTH 5 DAYS Bacteriology Remark(s): THIS REPORT IS FINAL =--=--=--=--=--=--=--=--=--= --=--=--=--=--=--=--=--=--=- -=--=--=--=--=--=--=-- Performing Laboratory: Bacteriology Report Performed By: [facility] [CLIA# [id number]] [place] [address] [facility] Jul 16, 2024 01:54 PM LR MICROBIOLOGY RE PORT: Reporting Lab: [facility] [CLIA# [id number]] [place] [address] Accession [UID]: [id number] [[id number]] Received: Jul 16, 2024@14:41 Collection sample: BLOOD Collection date: Jul 16, 2024 13:54 Provider: LEISA GOLDEN Comment on specimen: L AC, RECEIVED 2 BLOOD CULTURE BOTTLES Test(s) ordered: CULTURE & SUSCEPTIBILITY...... completed: Jul 22, 2024 * BACTERIOLOGY FINAL REPORT => Jul 22, 2024 13:39 TECH CODE: [id number] CULTURE RESULTS: NO GROWTH 5 DAYS Bacteriology Remark(s): THIS REPORT IS FINAL =--=--=--=--=--=--=--=--=--= --=--=--=--=--=--=--=--=--=- -=--=--=--=--=--=--=-- Performing Laboratory: Bacteriology Report Performed By: [facility] [CLIA# [id number]] [place] [address] [facility] Jul 03, 2024 05:59 AM LR SURGICAL PATHOL OGY REPORT: LOCAL TITLE: LR SURGICAL PATHOLOGY REPORT STANDARD TITLE: PATHOLOGY REPORT DATE OF NOTE: JUL 06, 2024@10:40:48 ENTRY DATE: JUL 06, 2024@10:40:48 AUTHOR: EDUARDO PALOMARES EXP COSIGNER: URGENCY: STATUS: COMPLETED $APHDR Reporting Lab: [facility] [CLIA# [id number]] [place] [address] - - - - - - - [...] - PATHOLOGY REPORT Accession No. [id number] - - - - - - - [...] - PATHOLOGY REPORT Accession No. [id number] - - - - - - - [...] Second circumferential surgical margin, en face; E-F: Marketing Analytics Analyst diverticula; G: Marketing Analytics Analyst section of mesentery; H: Random mechanical service representative section of additional adipose tissue [...] Pathology Report Performed By: [facility] [CLIA# [id number]] [place] [address] $FTR - - - - - - [...] - - MEGFLACA LOBO STANDARD FORM 515 ID:[id number] SEX:M :1950 AGE: 73 LOC:43698 ADM:Jun DX:DIVERTICULITIS PCP: Jatinder Cabrera /alexi/ EDUARDO PALOMARES MD STAFF PATHOLOGIST Signed: 07/06/2024 10:40 EDUARDO PALOMARES [facility] Jun 22, 2024 01:15 PM LR MICROBIOLOGY RE PORT: Reporting Lab: [facility] [CLIA# [id number]] [place] [address] Accession [UID]: [id number] [[id number]] Received: Jun 22, 2024@13:38 Collection sample: FLUID Collection date: Jun 22, 2024 13:15 Provider: ANGELA HOLDEN Comment on specimen: LLQ ABSCESS, RECEIVED IN ANAEROBIC TRANSPORT VIAL Test(s) ordered: GRAM STAIN.................... completed: Jun 22, 2024 15:03 CULTURE & SUSCEPTIBILITY...... completed: Jun 25, 2024 * BACTERIOLOGY FINAL REPORT => Jun 25, 2024 10:56 TECH CODE: [id number] GRAM STAIN: DIRECT SMEAR of specimen before [...] Bacteriology Report Performed By: [facility] [CLIA# [id number]] [place] [address] [facility] Jun 22, 2024 01:15 PM LR MICROBIOLOGY RE PORT: Reporting Lab: [facility] [CLIA# [id number]] [place] [address] Accession [UID]: [id number] [[id number]] Received: Jun 22, 2024@13:38 Collection sample: FLUID Collection date: Jun 22, 2024 13:15 Provider: ANGELA HOLDEN Comment on specimen: LLQ ABSCESS, RECEIVED IN ANAEROBIC TRANSPORT VIAL Test(s) ordered: ANAEROBIC CULTURE............. completed: Jun 28, 2024 * BACTERIOLOGY FINAL REPORT => Jun 28, 2024 10:08 TECH CODE: [id number] CULTURE RESULTS: HEAVY GROWTH MIXED ANAEROBES Comment: [...] Bacteriology Report Performed By: [facility] [CLIA# [id number]] [place] [address] [facility] Jun 21, 2024 06:12 PM LR MICROBIOLOGY RE PORT: Reporting Lab: [facility] [IA# [id number]] [place] [address] Accession [UID]: [id number] [[id number]] Received: Jun 21, 2024@18:12 Collection sample: BLOOD [...] Bacteriology Report Performed By: [facility] [CLIA# [id number]] [place] [address] [facility] Jun 21, 2024 06:11 PM LR MICROBIOLOGY RE PORT: Reporting Lab: [facility] [CLIA# [id number]] [place] [address] Accession [UID]: [id number] [[id number]] Received: Jun 21, 2024@18:11 Collection sample: BLOOD [...] Bacteriology Report Performed By: [facility] [CLIA# [id number]] [place] [address] [facility]
[2024-08-01 07:59] LABS: C Reactive Protein* 0.9 mg/dL (0.5-1.0)
--- OUTSIDE RECORDS SUMMARY | 2024-08-01 07:59 | XMS_ITS | Encounter Summary ---
Author Name [facility] [place] [facility] [facility] [place] Address [address] [place] [address] Care Team Providers Care Gerentological Physiotherapist Name Role Phone JATINDER CABRERA Primary Care [...] PART A Sep 29, 2016 PART A [id number] [phone] JUDY WEAVER PATIENT Selected Encounter This section includes the information on record at [place] for the Encounter. Date/Time Encounter Type Encounter Description Reason Provider Source Jul 18, 2024 10:56 AM DATABASE DBA [employer] INDIVIDU DATABASE DBA SERVICE - INDIVIDUAL ICD-10-CM Z71.81 Spiritual or [facility] counseling FELIX ZAZUETA Alex Encounter Template Text not used by [place] Assessments - Encounter Diagnoses This section includes the primary and secondary diagnoses documented for the Encounter. Date/Time Primary/Secondary Diagnosis Diagnosis Name Provider Source Jul 18, 2024 10:57 AM PRIMARY Spiritual or [facility]beterian counseling FELIX ZAZUETA [facility] Plan of Treatment: Future Appointments (+ 6 months) and Future Tests (+/- 45 days) The Plan of Treatment section includes future care activities for the [facility] [place] [facility] This section includes future [...] Jul 20, 2024 06:50 PM Reporting Lab: [facility] [address] Performing Lab: [facility] [address] CREATININE 0.8 mg/dL 0.7-1.2 UREA NITROGEN 31 [...] Jul 20, 2024 06:50 PM Reporting Lab: [facility] [address] Performing Lab: [facility] [address] WBC 16.0 H 4.0-11.0 RBC 5.16 4.60-6.20 [...] Jul 20, 2024 08:22 AM Reporting Lab: [facility] [address] Performing Lab: [facility] [address] SODIUM,URINE RANDOM <20 mmol/L Jul 20, 2024 01:00 PM [facility] OSMOLALITY,URINE Specimen Type: URINE No comment entered. Ordering Provider: SARAI GOLDEN Report Released Date/Time: Jul 20, 2024 08:22 AM Reporting Lab: [facility] [address] Performing Lab: [facility] [address] OSMOLALITY,URIN E 648 mosm/kg 500-800 Jul 20, 2024 06:45 AM [facility] BASIC METABOLIC PANEL+MG Specimen Type: PLASMA No comment entered. Ordering Provider: SARAI GOLDEN Report Released Date/Time: Jul 19, 2024 06:13 PM Reporting Lab: [facility] [address] Performing Lab: [facility] [address] CREATININE 0.8 mg/dL 0.7-1.2 UREA NITROGEN 36 [...] Jul 19, 2024 06:13 PM Reporting Lab: [facility] [address] Performing Lab: [facility] [address] WBC 16.6 H 4.0-11.0 RBC 4.96 4.60-6.20 [...] Jul 20, 2024 09:47 AM Reporting Lab: [facility] [address] Performing Lab: [facility] [address] OSMOLALITY,SERU M 266 mosm/kg L 276-305 Jul 19, 2024 08:57 AM [facility] BASIC METABOLIC PANEL+MG Specimen Type: PLASMA No comment entered. Ordering Provider: SARAI GOLDEN Report Released Date/Time: Jul 18, 2024 10:24 PM Reporting Lab: [facility] [address] Performing Lab: [facility] [address] CREATININE 1.0 mg/dL 0.7-1.2 UREA NITROGEN 40 [...] Jul 18, 2024 10:24 PM Reporting Lab: [facility] [address] Performing Lab: [facility] [address] WBC 17.3 H 4.0-11.0 RBC 4.83 4.60-6.20 [...] Jul 17, 2024 01:54 PM Reporting Lab: [facility] [address] Performing Lab: [facility] [address] PHOSPHORUS 2.9 mg/dL 2.3-4.3 Jul 17, 2024 06:55 PM [facility] BASIC METABOLIC PANEL+MG Specimen Type: PLASMA No comment entered. Ordering Provider: SARAI GOLDEN Report Released Date/Time: Jul 17, 2024 01:54 PM Reporting Lab: [facility] [address] Performing Lab: [facility] [address] CREATININE 1.2 mg/dL 0.7-1.2 UREA NITROGEN 62 [...] Jul 16, 2024 04:52 PM Reporting Lab: [facility] [address] Performing Lab: [facility] [address] WBC 18.9 H 4.0-11.0 RBC 5.55 4.60-6.20 [...] Jul 16, 2024 12:12 PM Reporting Lab: [facility] [address] Performing Lab: [facility] [address] ALBUMIN 4.3 g/dL 3.5-5.0 Jul 17, 2024 07:00 AM [facility] COMPREHENSIVE METABOLIC PANEL+MG Specimen Type: PLASMA No comment entered. Ordering Provider: SARAI GOLDEN Report Released Date/Time: Jul 16, 2024 04:52 PM Reporting Lab: [facility] [address] Performing Lab: [facility] [address] CREATININE 1.3 mg/dL H 0.7-1.2 UREA NITROGEN [...] Jul 16, 2024 12:12 PM Reporting Lab: [facility] [address] Performing Lab: [facility] [address] LACTIC ACID 0.9 mmol/L 0.5-2.2 Jul 16, 2024 02:14 PM [facility] MRSA SURVL NARES DNA Specimen Type: NARES No comment entered. Ordering Provider: SARAI GOLDEN Report Released Date/Time: Jul 16, 2024 12:12 PM Reporting Lab: [facility] [address] Performing Lab: [facility] [address] MRSA SURVL NARES DNA NEGATIVE Negative Jul 16, 2024 02:10 PM [facility] LACTIC ACID Specimen Type: PLASMA No comment entered. Ordering Provider: SARAI GOLDEN Report Released Date/Time: Jul 16, 2024 12:12 PM Reporting Lab: [facility] [address] Performing Lab: [facility] [address] LACTIC ACID 0.9 mmol/L 0.5-2.2 Jul 16, 2024 02:08 PM [facility] CBC & DIFF Specimen Type: BLOOD Comment: Manual Differential Performed Ordering Provider: SARAI GOLDEN Report Released Date/Time: Jul 16, 2024 12:12 PM Reporting Lab: [facility] [address] Performing Lab: [facility] [address] WBC 19.7 H 4.0-11.0 RBC 5.39 4.60-6.20 [...] MORPHOLOGY PRESENT Jul 16, 2024 02:08 PM [facility] COMPREHENSIVE METABOLIC PANEL+MG Specimen Type: PLASMA No comment entered. Ordering Provider: SARAI GOLDEN Report Released Date/Time: Jul 16, 2024 12:12 PM Reporting Lab: [facility] [address] Performing Lab: [facility] [address] CREATININE 2.0 mg/dL H 0.7-1.2 UREA NITROGEN [...] L >60 Jul 10, 2024 07:16 AM [facility] PHOSPHORUS Specimen Type: PLASMA No comment entered. Ordering Provider: JUANCARLOS ECHOLS Report Released Date/Time: Jul 09, 2024 12:23 PM Reporting Lab: [facility] [address] Performing Lab: [facility] [address] PHOSPHORUS 3.0 mg/dL 2.3-4.3 Jul 10, 2024 07:16 AM [facility] BASIC METABOLIC PANEL+MG Specimen Type: PLASMA No comment entered. Ordering Provider: JUANCARLOS ECHOLS S Report Released Date/Time: Jul 09, 2024 12:23 PM Reporting Lab: [facility] [address] Performing Lab: [facility] [address] CREATININE 0.7 mg/dL 0.7-1.2 UREA NITROGEN 27 [...] Jul 09, 2024 12:23 PM Reporting Lab: [facility] [address] Performing Lab: [facility] [address] WBC 18.8 H 4.0-11.0 RBC 5.08 4.60-6.20 [...] Jul 08, 2024 06:18 PM Reporting Lab: [facility] [address] Performing Lab: [facility] [address] WBC 15.3 H 4.0-11.0 RBC 4.91 4.60-6.20 [...] Jul 08, 2024 08:41 AM Reporting Lab: [facility] [address] Performing Lab: [facility] [address] URINE COLOR YELLOW SPECIFIC GRAVITY >1.050 H [...] Jul 07, 2024 04:49 PM Reporting Lab: [facility] [address] Performing Lab: [facility] [address] WBC 17.5 H 4.0-11.0 RBC 4.88 4.60-6.20 [...] Jul 07, 2024 04:49 PM Reporting Lab: [facility] [address] Performing Lab: [facility] [address] PHOSPHORUS 2.6 mg/dL 2.3-4.3 Jul 08, 2024 09:54 AM [facility] BASIC METABOLIC PANEL+MG Specimen Type: PLASMA Comment: Specimen received in Lab at: [id number] Ordering Provider: JUANCARLOS ECHOLS S Report Released Date/Time: Jul 07, 2024 04:49 PM Reporting Lab: [facility] [address] Performing Lab: [facility] [address] CREATININE 0.9 mg/dL 0.7-1.2 UREA NITROGEN 26 [...] Jul 07, 2024 12:26 PM Reporting Lab: [facility] [address] Performing Lab: [facility] [address] C DIFF TOX B GENE PCR NEGATIVE Negative Jul 07, 2024 07:41 AM [facility] PHOSPHORUS Specimen Type: PLASMA No comment entered. Ordering Provider: JEVON ZAZUETA Report Released Date/Time: Jul 06, 2024 03:44 PM Reporting Lab: [facility] [address] Performing Lab: [facility] [address] PHOSPHORUS 3.1 mg/dL 2.3-4.3 Jul 07, 2024 07:41 AM [facility] BASIC METABOLIC PANEL+MG Specimen Type: PLASMA No comment entered. Ordering Provider: JEVON ZAZUETA Report Released Date/Time: Jul 06, 2024 03:44 PM Reporting Lab: [facility] [address] Performing Lab: [facility] [address] CREATININE 0.9 mg/dL 0.7-1.2 UREA NITROGEN 20 [...] Jul 06, 2024 03:44 PM Reporting Lab: [facility] [address] Performing Lab: [facility] [address] WBC 21.2 H 4.0-11.0 RBC 5.09 4.60-6.20 [...] Jul 05, 2024 01:22 PM Reporting Lab: [facility] [address] Performing Lab: [facility] [address] WBC 18.0 H 4.0-11.0 RBC 4.83 4.60-6.20 [...] Jul 05, 2024 01:22 PM Reporting Lab: [facility] [address] Performing Lab: [facility] [address] PHOSPHORUS 3.6 mg/dL 2.3-4.3 Jul 06, 2024 07:21 AM [facility] BASIC METABOLIC PANEL+MG Specimen Type: PLASMA No comment entered. Ordering Provider: JEVON ZAZUETA Report Released Date/Time: Jul 05, 2024 01:22 PM Reporting Lab: [facility] [address] Performing Lab: [facility] [address] CREATININE 0.7 mg/dL 0.7-1.2 UREA NITROGEN 12 [...] Jul 04, 2024 09:39 AM Reporting Lab: [facility] [address] Performing Lab: [facility] [address] MAGNESIUM 2.0 mg/dL 1.6-2.6 Jul 05, 2024 07:17 AM [facility] PHOSPHORUS Specimen Type: PLASMA No comment entered. Ordering Provider: JUANCARLOS ECHOLS S Report Released Date/Time: Jul 04, 2024 09:39 AM Reporting Lab: [facility] [address] Performing Lab: [facility] [address] PHOSPHORUS 2.0 mg/dL L 2.3-4.3 Jul 05, 2024 07:17 AM [facility] BASIC METABOLIC PANEL+MG Specimen Type: PLASMA No comment entered. Ordering Provider: JUANCARLOS ECHOLS S Report Released Date/Time: Jul 04, 2024 09:39 AM Reporting Lab: [facility] [address] Performing Lab: [facility] [address] CREATININE 0.7 mg/dL 0.7-1.2 UREA NITROGEN 12 [...] Jul 04, 2024 09:39 AM Reporting Lab: [facility] [address] Performing Lab: [facility] [address] WBC 18.3 H 4.0-11.0 RBC 4.49 L [...] Jul 03, 2024 06:31 PM Reporting Lab: [facility] [address] Performing Lab: [facility] [address] CREATININE 0.7 mg/dL 0.7-1.2 UREA NITROGEN 16 [...] Jul 03, 2024 06:31 PM Reporting Lab: [facility] [address] Performing Lab: [facility] [address] PHOSPHORUS 2.8 mg/dL 2.3-4.3 Jul 04, 2024 07:16 AM [facility] CBC Specimen Type: BLOOD No comment entered. Ordering Provider: GABINO CAMERON Report Released Date/Time: Jul 03, 2024 06:31 PM Reporting Lab: [facility] [address] Performing Lab: [facility] [address] WBC 20.6 H 4.0-11.0 RBC 4.63 4.60-6.20 [...] Jul 03, 2024 06:31 PM Reporting Lab: [facility] [address] Performing Lab: [facility] [address] WBC 20.6 H 4.0-11.0 RBC 4.63 4.60-6.20 [...] Jul 03, 2024 06:31 PM Reporting Lab: [facility] [address] Performing Lab: [facility] [address] BNP 292 pg/mL H <99 Jul 03, 2024 10:32 PM [facility] FINGERSTICK GLUCOSE Specimen Type: BLOOD Comment: Save Result Nurse Notified Ordering Provider: KATELYNN PERSON Report Released Date/Time: Jul 03, 2024 10:50 PM Reporting Lab: [facility] [address] Performing Lab: [facility] [address] FINGERSTICK GLUCOSE 126 mg/dL H 70-100 Jul 03, 2024 05:33 PM [facility] FINGERSTICK GLUCOSE Specimen Type: BLOOD Comment: Save Result Nurse Notified Ordering Provider: KATELYNN PERSON Report Released Date/Time: Jul 03, 2024 05:46 PM Reporting Lab: [facility] [address] Performing Lab: [facility] [address] FINGERSTICK GLUCOSE 141 mg/dL H 70-100 Jul 03, 2024 02:31 PM [facility] POC ABG/ELECTROLYTES Specimen Type: ARTERIAL BLOOD Comment: FIO2 = 97% Patient Temp: 36.0 C Sample Type = ARTERIAL Ordering Provider: MAZIN ARREDONDO Report Released Date/Time: Jul 03, 2024 01:48 PM Reporting Lab: [facility] [address] Performing Lab: [facility] [address] POC PH 7.387 7.35-7.45 POC PCO2 34.4 [...] Jul 03, 2024 01:48 PM Reporting Lab: [facility] [address] Performing Lab: [facility] [address] POC PH 7.280 L 7.35-7.45 POC PCO2 [...] Jun 12, 2024 04:01 PM Reporting Lab: [facility] [address] Performing Lab: [facility] [address] URINE COLOR YELLOW SPECIFIC GRAVITY 1.031 1.003-1.03 [...] Jun 12, 2024 03:59 PM Reporting Lab: [facility] [address] Performing Lab: [facility] [address] WBC 15.8 H 4.0-11.0 RBC 5.11 4.60-6.20 [...] Jun 23, 2024 06:07 PM Reporting Lab: [facility] [address] Performing Lab: [facility] [address] CREATININE 0.8 mg/dL 0.7-1.2 UREA NITROGEN 13 [...] Jun 23, 2024 06:07 PM Reporting Lab: [facility] [address] Performing Lab: [facility] [address] WBC 15.5 H 4.0-11.0 RBC 4.93 4.60-6.20 [...] Jun 22, 2024 05:51 PM Reporting Lab: [facility] [address] Performing Lab: [facility] [address] CREATININE 0.7 mg/dL 0.7-1.2 UREA NITROGEN 16 [...] Jun 22, 2024 05:51 PM Reporting Lab: [facility] [address] Performing Lab: [facility] [address] WBC 14.9 H 4.0-11.0 RBC 5.09 4.60-6.20 [...] Jun 22, 2024 05:51 PM Reporting Lab: [facility] [address] Performing Lab: [facility] [address] WBC 16.9 H 4.0-11.0 RBC 5.28 4.60-6.20 [...] Jun 22, 2024 05:51 PM Reporting Lab: [facility] [address] Performing Lab: [facility] [address] CREATININE 0.7 mg/dL 0.7-1.2 UREA NITROGEN 17 [...] Jun 21, 2024 05:45 PM Reporting Lab: [facility] [address] Performing Lab: [facility] [address] URINE COLOR YELLOW SPECIFIC GRAVITY 1.041 H [...] Jun 21, 2024 06:07 PM Reporting Lab: [facility] [address] Performing Lab: [facility] [address] POC CREATININE 1.1 mg/dL 0.6-1.3 Jun 21, 2024 05:30 PM [facility] POC ABG/LACTATE Specimen Type: VENOUS BLOOD No comment entered. Ordering Provider: DELIA MARTINEZ Report Released Date/Time: Jun 21, 2024 06:07 PM Reporting Lab: [facility] [address] Performing Lab: [facility] [address] POC PH 7.470 H 7.31-7.41 POC PCO2 [...] Jun 21, 2024 05:30 PM Reporting Lab: [facility] [address] Performing Lab: [facility] [address] .INR 1.2 H 0.8-1.1 .PT 13.9 s H 9.4-12.5 Jun 21, 2024 05:24 PM [facility] LIPASE Specimen Type: PLASMA No comment entered. Ordering Provider: DELIA MARTINEZ Report Released Date/Time: Jun 21, 2024 05:30 PM Reporting Lab: [facility] [address] Performing Lab: [facility] [address] LIPASE 32 U/L <60 Jun 21, 2024 05:24 PM [facility] EXTRA GOLD GEL TUBE Specimen Type: SERUM No comment entered. Ordering Provider: DELIA MARTINEZ Report Released Date/Time: Jun 21, 2024 05:41 PM Reporting Lab: [facility] [address] Performing Lab: [facility] [address] EXTRA GOLD GEL TUBE RECEIVED Jun 21, 2024 05:24 PM [facility] COMPREHENSIVE METABOLIC PANEL+MG Specimen Type: PLASMA No comment entered. Ordering Provider: DELIA MARTINEZ Report Released Date/Time: Jun 21, 2024 05:30 PM Reporting Lab: [facility] [address] Performing Lab: [facility] [address] CREATININE 0.9 mg/dL 0.7-1.2 UREA NITROGEN 29 [...] Jun 21, 2024 05:30 PM Reporting Lab: [facility] [address] Performing Lab: [facility] [address] WBC 21.3 H 4.0-11.0 RBC 5.48 4.60-6.20 [...] Height Weight Body Mass Index Source Jul 18, 2024 11:21 PM 9 JAIME LOZANO [facility] Social [...] 06:15 PM CHEST 1 VIEW: FLACA WEAVER [id number] -1950 M Exm Date: JUL 18, 2024@18:15 Req Phys: LEISA GOLDEN Pat Loc: 3ES/07-18-2024@19:00 Img Loc: MAIN X-RAY Service: [place] [address] (Case [id number] COMPLETE) CHEST 1 VIEW (RAD Detailed) CPT:03773 Proc Modifiers : PORTABLE EXAM Reason for Study: SOB Clinical History: Mammoth IS NOT under investigation for COVID-19 or is COVID-19 negative 73 yo with SOB Responsible provider name and phone number to notify for critical findings if other than user placing the order and pager listed below: User placing orders pager: [phone] LAST CREATININE 1.2 (07/17/24) Report Status: Verified Date Reported: JUL 18, 2024 Date Verified: JUL 18, 2024 Manager Multicultural E-Sig:/ES/CARLOS A CUNNINGHAM DO Report: EXAMINATION: CHEST 1 VIEW Reason for Study: SOB Mammoth IS NOT under investigation for COVID-19 or is COVID-19 negative 73 yo with SOB Responsible provider name and phone number to notify for critical findings if other than user placing the order and pager listed below: User placing orders pager: [phone] LAST CREATININE 1.2 (07/17/24) SOB TECHNIQUE: Single [...] Staff: CARLOS A CUNNINGHAM DO, RADIOLOGIST (Manager Multicultural) /KMB CARLOS A CUNNINGHAM [facility] Jul 16, 2024 07:49 AM [facility] CT ABDOMEN/PELVIS: FLACA WEAVER [id number] -1950 M Exm Date: JUL 16, 2024@07:49 Req Phys: JATINDER CABRERA Loc: 07-17-2024@09:02 [facility] [place] Service: Unknown (Case [id number] COMPLETE) NON [place] CT ABDOMEN/PELVIS (CT Detailed) CPT:84419 Reason for Study: outside study Clinical History: [...] [facility] Jul 13, 2024 09:[address] [place] [address] ABDOMEN/PELVIS: FLACA WEAVER [id number] -1950 M Exm Date: JUL 13, 2024@09:41 Req Phys: JATINDER CABRERA Loc: 3ES07-17-2024@09:08 Img Loc: OUTSOURCE CT Service: Unknown (Case [id number] COMPLETE) NON [place] ABDOMEN/PELVIS (CT Detailed) CPT:69291 Reason for Study: outside study Clinical History: [...] 2 VIEWS PA AND LAT: MEGFLACA YAMIL [id number] -1950 M Exm Date: JUL 08, 2024@10:09 Req Phys: KATELYNN PERSON Loc: 2K07-08-2024@11:49 Img Loc: MAIN X-RAY Service: [place] [address] (Case 24 COMPLETE) CHEST 2 VIEWS PA AND LAT (RAD Detailed) CPT:06062 Reason for Study: Uptrending WBC, POD 5 [...] 2024 Date Verified: JUL 08, 2024 Manager Multicultural E-Sig: Report: CHEST 2 VIEWS PA AND [...] cardiopulmonary disease. READING PHYSICIAN: Sarbjit Vaughn M.D. -[phone] 07/08/2024 12:46 [facility] Program [phone] (For Medical Practitioner Use Only) Attention Patients / Veterans: If you have questions or concerns about these test results, please contact your ordering provider or primary care team. Primary Interpreting Staff: RADIOLOGY,OUTSIDE SERVICE, Staff Physician / RADIOLOGY,OUTSIDE SERVICE [facility] Jul 08, 2024 10:[address] (AP) ABDOMEN/PELVIS W CONTRAST: FLACA WEAVER YAMIL [id number] -1950 M Exm Date: JUL 08, 2024@10:00 Req Phys: KATELYNN PERSON [facility] Loc: [facility]/07-08-2024@12:07 Img Loc: CT IMAGING Service: [place] [address] (Case 22 COMPLETE) CT (AP) ABDOMEN/PELVIS W CONTRAST(CT Detailed) CPT:22673 Contrast Media : Non-ionic Iodinated Reason for [...] PLASMA .CREAT EGFR(CKD-E >90 Ref: >=60 Allergies: ([place] only) TERAZOSIN (Mar 13, 2015) Report Status: Verified Date Reported: JUL 08, 2024 Date Verified: JUL 08, 2024 Manager Multicultural E-Sig: Report: CT (AP) ABDOMEN/PELVIS W CONTRAST [...] as noted above READING PHYSICIAN: Celestino Blanc -[phone] 07/08/2024 13:04 [facility] [phone] (For Medical Practitioner Use Only) Attention Patients / Veterans: If you have questions or concerns about these test results, please contact your ordering provider or primary care team. Primary Interpreting Staff: RADIOLOGY,OUTSIDE SERVICE, Staff Physician / RADIOLOGY,OUTSIDE SERVICE [facility] Jun 22, 2024 11:49 AM ABSCESS DRAIN PLACEMENT PERITONEAL (P): FLACA WEAVER [id number] -1950 M Exm Date: JUN 22, 2024@11:49 Req Phys: ANGELA HOLDEN Loc: [facility]/06-22-2024@17:14 Img Loc: INTERVENTIONAL RADIOLOGY Service: [place] [address] (Case [id number] COMPLETE) IR PERITONEAL/RETROPERITONEAL PER(ANI Detailed) CPT:13378 Reason for Study: diverticulitis with abscess (Case 3570 COMPLETE) IR MOD SEDATION 10-22 MIN (ANI Detailed) CPT:73042 Clinical History: Mammoth IS NOT under investigation for COVID-19 or is COVID-19 negative 73 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 please place abscess drain. Contact number for responsible provider who can be reached for any questions or notifications of critical findings: [phone] n/a LAST CREATININE 0.9 (06/21/24) Report Status: Verified Date Reported: JUN 22, 2024 Date Verified: JUN 22, 2024 Manager Multicultural E-Sig:/ES/LISA PENDLETON MD Report: PROCEDURES: Placement of [...] Using real-time CT fluoroscopy, a 5 Haitian KellBenxesis catheter was advanced into the collection in [...] Interpreting Staff: LISA PENDLETON MD, RADIOLOGIST (Manager Multicultural) /JRT LISA PENDLETON [facility] Jun 22, 2024 11:[address] NEEDLE PLACEMENT (P): FLACA WEAVER YAMIL [id number] -1950 M Exm Date: JUN 22, 2024@11:48 Req Phys: ANGELA HOLDEN [facility] Loc: [facility]06-22-2024@17:14 Im Loc: CT IMAGING Service: [place] [address] (Case [id number] COMPLETE) CT SCAN FOR NEEDLE PLACEMENT (CT Detailed) CPT:78653 Reason for Study: l pelvic abscess drain Clinical History: Report Status: Verified Date Reported: JUN 22, 2024 Date Verified: JUN 22, 2024 Manager Multicultural E-Sig:/ES/LISA PENDLETON MD Report: PROCEDURES: Placement of [...] Using real-time CT fluoroscopy, a 5 Haitian KellBenxesis catheter was advanced into the collection in [...] Interpreting Staff: LISA PENDLETON MD, RADIOLOGIST (Manager Multicultural) /JRT LISA PENDLETON [facility] Jun 21, 2024 06:[address] (AP) ABDOMEN/PELVIS (P): FLACA WEAVER [id number] -1950 Exm Date: JUN 21, 2024@18:09 Req Phys: DELIA MARTINEZ Loc: [facility] [facility] [place]: CT IMAGING Service: [place] [address] (Case [id number] COMPLETE) CT (AP) ABDOMEN/PELVIS W CONTRAST(CT Detailed) CPT:61545 Contrast Media : Non-ionic Iodinated Reason for [...] PLASMA .CREAT EGFR(CKD-E >90 Ref: >=60 Allergies: ([place] only) TERAZOSIN (Mar 13, 2015) Defer to [...] 2024 Date Verified: JUN 21, 2024 Manager Multicultural E-Sig:/ES/CARLOS A CUNNINGHAM DO Report: EXAMINATION: CT [...] Staff: CARLOS A CUNNINGHAM DO, RADIOLOGIST (Manager Multicultural) /CARLOS A ROWELL [facility] Pathology Reports: [...] RE PORT: Reporting Lab: [facility] [CLIA# [id number]] [place] [address] Accession [UID]: [id number] [[id number]] Received: Jul 16, 2024@14:41 Collection sample: BLOOD Collection date: Jul 16, 2024 14:07 Provider: LEISA GOLDEN Comment on specimen: R AC, RECEIVED 2 BLOOD CULTURE BOTTLES Test(s) ordered: CULTURE & SUSCEPTIBILITY...... completed: Jul 22, 2024 * BACTERIOLOGY FINAL REPORT => Jul 22, 2024 13:39 TECH CODE: [id number] CULTURE RESULTS: NO GROWTH 5 DAYS Bacteriology Remark(s): THIS REPORT IS FINAL =--=--=--=--=--=--=--=--=--= --=--=--=--=--=--=--=--=--=- -=--=--=--=--=--=--=-- Performing Laboratory: Bacteriology Report Performed By: [facility] [CLIA# [id number]] [place] [address] [facility] Jul 16, 2024 01:54 PM LR MICROBIOLOGY RE PORT: Reporting Lab: [facility] [IA# [id number]] [place] [address] Accession [UID]: [id number] [[id number]] Received: Jul 16, 2024@14:41 Collection sample: BLOOD Collection date: Jul 16, 2024 13:54 Provider: LEISA GOLDEN Comment on specimen: [place] AC, RECEIVED 2 BLOOD CULTURE BOTTLES Test(s) ordered: CULTURE & SUSCEPTIBILITY...... completed: Jul 22, 2024 * BACTERIOLOGY FINAL REPORT => Jul 22, 2024 13:39 TECH CODE: [id number] CULTURE RESULTS: NO GROWTH 5 DAYS Bacteriology Remark(s): THIS REPORT IS FINAL =--=--=--=--=--=--=--=--=--= --=--=--=--=--=--=--=--=--=- -=--=--=--=--=--=--=-- Performing Laboratory: Bacteriology Report Performed By: [facility] [IA# [id number]] [place] [address] [facility] Jul 03, 2024 05:59 AM LR SURGICAL PATHOL OGY REPORT: LOCAL TITLE: LR SURGICAL PATHOLOGY REPORT STANDARD TITLE: PATHOLOGY REPORT DATE OF NOTE: JUL 06, 2024@10:40:48 ENTRY DATE: JUL 06, 2024@10:40:48 AUTHOR: EDUARDO PALOMARES EXP COSIGNER: URGENCY: STATUS: COMPLETED $APHDR Reporting Lab: [facility] [IA# [id number]] [place] [address] - - - - - - - [...] - PATHOLOGY REPORT Accession No. [id number] - - - - - - - [...] - PATHOLOGY REPORT Accession No. [id number] - - - - - - - [...] Second circumferential surgical margin, en face; E-F: Shot Core Drill Operator diverticula; G: Shot Core Drill Operator section of mesentery; H: Random employee relations [...] One colonic tissue ring, bisected transversely. [facility]: Microscopic examination performed. DIAGNOSIS: 1. Colon, sigmoid, sigmoidectomy-- - Diverticulosis with perforation and focal abscess formation 2. Colon, anastomotic rings, excision-- - Viable colonic mucosa without diagnostic abnormality /es/ EDUARDO PALOMARES MD STAFF PATHOLOGIST Signed Jul 06, 2024@10:40 Performing Laboratory: Surgical Pathology Report Performed By: [facility] [CLIA# [id number]] [place] [address] $FTR - - - - - - [...] - - FLACA WE[employer]ER STANDARD FORM 515 ID:[id number] SEX:M :1950 AGE: 73 LOC:[id number] ADM:Jun DX:DIVERTICULITIS PCP: Jatinder Cabrera /alexi/ EDUARDO PALOMARES MD STAFF PATHOLOGIST Signed: 07/06/2024 10:40 EDUARDO PALOMARES [facility] Jun 22, 2024 01:15 PM LR MICROBIOLOGY RE PORT: Reporting Lab: [facility] [CLIA# [id number]] [employer] [place] [address] Accession [UID]: [id number] [[id number]] Received: Jun 22, 2024@13:38 Collection sample: FLUID Collection date: Jun 22, 2024 13:15 Provider: ANGELA HOLDEN Comment on specimen: LLQ ABSCESS, RECEIVED IN ANAEROBIC TRANSPORT VIAL Test(s) ordered: GRAM STAIN.................... completed: Jun 22, 2024 15:03 CULTURE & SUSCEPTIBILITY...... completed: Jun 25, 2024 * BACTERIOLOGY FINAL REPORT => Jun 25, 2024 10:56 TECH CODE: [id number] GRAM STAIN: DIRECT SMEAR of specimen before [...] Bacteriology Report Performed By: [facility] [CLIA# [id number]] [place] [address] [facility] Jun 22, 2024 01:15 PM LR MICROBIOLOGY RE PORT: Reporting Lab: [facility] [CLIA# [id number]] [place] [address] Accession [UID]: [id number] [[id number]] Received: Jun 22, 2024@13:38 Collection sample: FLUID Collection date: Jun 22, 2024 13:15 Provider: ANGELA HOLDEN Comment on specimen: LLQ ABSCESS, RECEIVED IN ANAEROBIC TRANSPORT VIAL Test(s) ordered: ANAEROBIC CULTURE............. completed: Jun 28, 2024 * BACTERIOLOGY FINAL REPORT => Jun 28, 2024 10:08 TECH CODE: [id number] CULTURE RESULTS: HEAVY GROWTH MIXED ANAEROBES Comment: [...] Bacteriology Report Performed By: [facility] [CLIA# [id number]] [place] [address] [facility] Jun 21, 2024 06:12 PM LR MICROBIOLOGY RE PORT: Reporting Lab: [facility] [CLIA# [id number]] [place] [address] Accession [UID]: [id number] [[id number]] Received: Jun 21, 2024@18:12 Collection sample: BLOOD [...] Bacteriology Report Performed By: [facility] [CLIA# [id number]] [place] [address] [facility] Jun 21, 2024 06:11 PM LR MICROBIOLOGY RE PORT: Reporting Lab: [facility] [CLIA# [id number]] [place] [address] Accession [UID]: [id number] [[id number]] Received: Jun 21, 2024@18:11 Collection sample: BLOOD [...] Bacteriology Report Performed By: [facility] [CLIA# [id number]] [place] [address] [facility] Encounter Notes: All associated encounter notes This section contains the clinical notes associated to the Encounter. Date/Time Encounter Note(s) Provider Source Jul 18, 2024 10:56 AM PASTORAL CARE NOTE : LOCAL TITLE: DATABASE DBA-VISITATION NOTE STANDARD TITLE: PASTORAL CARE NOTE DATE OF NOTE: JUL 18, 2024@10:56 ENTRY DATE: JUL 18, 2024@10:57:04 AUTHOR: FELIX ZAZUETA EXP COSIGNER: URGENCY: STATUS: COMPLETED DATABASE DBA VISITATION NOTE SUMMARY: Check in with Mariano who declines visit. Understands a software manager is available if they change their mind. 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
--- OUTSIDE RECORDS SUMMARY | 2024-08-01 07:59 | XMS_ITS | Encounter Summary ---
Author Name [facility] [place] [facility] [facility] [place] Address [address] [place] [address] Care Team Providers Care Water Chemist Name Role Phone JATINDER CABRERA Primary Care [...] PART A Sep 29, 2016 PART A [id number] [phone] JUDY WEAVER PATIENT Selected Encounter This section includes the information on record at [place] for the Encounter. Date/Time Encounter Type Encounter Description Reason Provider Source Jul 18, 2024 11:47 AM POSTOP FOLLOW-UP VISIT GENERAL SURGERY ICD-10-CM K57.90 Dvrtclos of intest, part unsp, w/o perf or abscess w/o bleed SOCORRO ARREDONDO [facility] Encounter Template Text not used by [place] Assessments - Encounter Diagnoses This section includes the primary and secondary diagnoses documented for the Encounter. Date/Time Primary/Secondary Diagnosis Diagnosis Name Provider Source Jul 19, 2024 01:09 AM PRIMARY Dvrtclos of intest, part unsp, w/o perf or abscess w/o bleed SOCORRO ARREDONDO [facility] Plan of Treatment: [...] - LAB BLOOD [facility] Jul 03, 2024 12:00 AM [...] Range Comment Jul 21, 2024 10:38 AM [facility] BASIC METABOLIC PANEL+MG Specimen Type: PLASMA No comment entered. Ordering Provider: SARAI GOLDEN Report Released Date/Time: Jul 20, 2024 06:50 PM Reporting Lab: [facility] [address] Performing Lab: [facility] [address] CREATININE 0.8 mg/dL 0.7-1.2 UREA NITROGEN 31 mg/dL H 8-26 GLUCOSE 120 mg/dL H 70-100 SODIUM 125 mmol/L L 136-145 POTASSIUM 4.4 mmol/L 3.5-5.1 CHLORIDE 100 mmol/L 98-107 CO2 17 mmol/L L 22-29 CALCIUM 9.6 mg/dL 8.4-10.2 MAGNESIUM 1.9 mg/dL 1.6-2.6 ANION GAP 8 mmol/L 5-15 .CREAT EGFR(CKD-EPI) >90 >60 Jul 21, 2024 10:38 AM [facility] CBC Specimen Type: BLOOD No comment entered. Ordering Provider: SARAI GOLDEN Report Released Date/Time: Jul 20, 2024 06:50 PM Reporting Lab: [facility] [phone] Performing Lab: [facility] [address] WBC 16.0 H 4.0-11.0 RBC 5.16 4.60-6.20 HGB 15.8 g/dL 13.5-17.9 HCT 45.5 41.0-54.0 MCV 88.2 fL 80.0-100.0 MCH 30.6 pg 27.0-33.0 MCHC 34.7 g/dL 32.0-37.5 PLT 428 H 150-400 MPV 10.8 fL 9.1-13.0 RDW 13.6 11.5-14.5 Jul 20, 2024 01:00 PM [facility] SODIUM,URINE RANDOM Specimen Type: URINE No comment entered. Ordering Provider: SARAI GOLDEN Report Released Date/Time: Jul 20, 2024 08:22 AM Reporting Lab: [facility] [address] Performing Lab: [facility] [address] SODIUM,URINE RANDOM <20 mmol/L Jul 20, 2024 01:00 PM [facility] OSMOLALITY,URINE Specimen Type: URINE No comment entered. Ordering Provider: SARAI GOLDEN Report Released Date/Time: Jul 20, 2024 08:22 AM Reporting Lab: [facility] [address] Performing Lab: [facility] [address] OSMOLALITY,URIN E 648 mosm/kg 500-800 Jul 20, 2024 06:45 AM [facility] BASIC METABOLIC PANEL+MG Specimen Type: PLASMA No comment entered. Ordering Provider: SARAI GOLDEN Report Released Date/Time: Jul 19, 2024 06:13 PM Reporting Lab: [facility] [address] Performing Lab: [facility] [address] CREATININE 0.8 mg/dL 0.7-1.2 UREA NITROGEN 36 mg/dL H 8-26 GLUCOSE 111 mg/dL H 70-100 SODIUM 121 mmol/L L 136-145 POTASSIUM 4.1 mmol/L 3.5-5.1 CHLORIDE 99 mmol/L 98-107 CO2 14 mmol/L L 22-29 CALCIUM 9.5 mg/dL 8.4-10.2 MAGNESIUM 1.8 mg/dL 1.6-2.6 ANION GAP 8 mmol/L 5-15 .CREAT EGFR(CKD-EPI) >90 >60 Jul 20, 2024 06:43 AM [facility] CBC & DIFF Specimen Type: BLOOD Comment: Automated Differential Performed Ordering Provider: SARAI GOLDEN Report Released Date/Time: Jul 19, 2024 06:13 PM Reporting Lab: [facility] [address] Performing Lab: [facility] [address] WBC 16.6 H 4.0-11.0 RBC 4.96 4.60-6.20 [...] H 0.0-0.1 Jul 20, 2024 05:30 AM [facility] OSMOLALITY,SERUM Specimen Type: SERUM No comment entered. Ordering Provider: SARAI GOLDEN Report Released Date/Time: Jul 20, 2024 09:47 AM Reporting Lab: [facility] [address] Performing Lab: [facility] [address] OSMOLALITY,SERU M 266 mosm/kg L 276-305 Jul 19, 2024 08:57 AM [facility] BASIC METABOLIC PANEL+MG Specimen Type: PLASMA No comment entered. Ordering Provider: SARAI GOLDEN Report Released Date/Time: Jul 18, 2024 10:24 PM Reporting Lab: [facility] [address] Performing Lab: [facility] [address] CREATININE 1.0 mg/dL 0.7-1.2 UREA NITROGEN 40 mg/dL H 8-26 GLUCOSE 104 mg/dL H 70-100 SODIUM 129 mmol/L L 136-145 POTASSIUM 3.3 mmol/L L 3.5-5.1 CHLORIDE 104 mmol/L 98-107 CO2 16 mmol/L L 22-29 CALCIUM 8.0 mg/dL L 8.4-10.2 MAGNESIUM 1.7 mg/dL 1.6-2.6 ANION GAP 9 mmol/L 5-15 .CREAT EGFR(CKD-EPI) 80 >60 Jul 19, 2024 08:57 AM [facility] CBC Specimen Type: BLOOD No comment entered. Ordering Provider: SARAI GOLDEN Report Released Date/Time: Jul 18, 2024 10:24 PM Reporting Lab: [facility] [address] Performing Lab: [facility] [address] WBC 17.3 H 4.0-11.0 RBC 4.83 4.60-6.20 HGB 14.8 g/dL 13.5-17.9 HCT 42.6 41.0-54.0 MCV 88.2 fL 80.0-100.0 MCH 30.6 pg 27.0-33.0 MCHC 34.7 g/dL 32.0-37.5 PLT 456 H 150-400 MPV 10.8 fL 9.1-13.0 RDW 13.7 11.5-14.5 Jul 17, 2024 06:55 PM [facility] PHOSPHORUS Specimen Type: PLASMA No comment entered. Ordering Provider: SARAI GOLDEN Report Released Date/Time: Jul 17, 2024 01:54 PM Reporting Lab: [facility] [address] Performing Lab: [facility] [address] PHOSPHORUS 2.9 mg/dL 2.3-4.3 Jul 17, 2024 06:55 PM [facility] BASIC METABOLIC PANEL+MG Specimen Type: PLASMA No comment entered. Ordering Provider: SARAI GOLDEN Report Released Date/Time: Jul 17, 2024 01:54 PM Reporting Lab: [facility] [address] Performing Lab: [facility] [address] CREATININE 1.2 mg/dL 0.7-1.2 UREA NITROGEN 62 mg/dL H 8-26 GLUCOSE 116 mg/dL H 70-100 SODIUM 128 mmol/L L 136-145 POTASSIUM 3.8 mmol/L 3.5-5.1 CHLORIDE 100 mmol/L 98-107 CO2 16 mmol/L L 22-29 CALCIUM 9.3 mg/dL 8.4-10.2 MAGNESIUM 2.1 mg/dL 1.6-2.6 ANION GAP 12 mmol/L 5-15 .CREAT EGFR(CKD-EPI) 64 >60 Jul 17, 2024 07:00 AM [facility] CBC & DIFF Specimen Type: BLOOD Comment: Manual Differential Performed Ordering Provider: SARAI GOLDEN Report Released Date/Time: Jul 16, 2024 04:52 PM Reporting Lab: [facility] [address] Performing Lab: [facility] [address] WBC 18.9 H 4.0-11.0 RBC 5.55 4.60-6.20 [...] MORPHOLOGY PRESENT Jul 17, 2024 07:00 AM [facility] ALBUMIN Specimen Type: PLASMA No comment entered. Ordering Provider: SARAI GOLDEN Report Released Date/Time: Jul 16, 2024 12:12 PM Reporting Lab: [facility] [address] Performing Lab: [facility] [address] ALBUMIN 4.3 g/dL 3.5-5.0 Jul 17, 2024 07:00 AM [facility] COMPREHENSIVE METABOLIC PANEL+MG Specimen Type: PLASMA No comment entered. Ordering Provider: SARAI GOLDEN Report Released Date/Time: Jul 16, 2024 04:52 PM Reporting Lab: [facility] [address] Performing Lab: [facility] [address] CREATININE 1.3 mg/dL H 0.7-1.2 UREA NITROGEN [...] L >60 Jul 16, 2024 07:10 PM [facility] LACTIC ACID Specimen Type: PLASMA No comment entered. Ordering Provider: SARAI GOLDEN Report Released Date/Time: Jul 16, 2024 12:12 PM Reporting Lab: [facility] [address] Performing Lab: [facility] [address] LACTIC ACID 0.9 mmol/L 0.5-2.2 Jul 16, 2024 02:14 PM [facility] MRSA SURVL NARES DNA Specimen Type: NARES No comment entered. Ordering Provider: SARAI GOLDEN Report Released Date/Time: Jul 16, 2024 12:12 PM Reporting Lab: [facility] [address] Performing Lab: [facility] [address] MRSA SURVL NARES DNA NEGATIVE Negative Jul 16, 2024 02:10 PM [facility] LACTIC ACID Specimen Type: PLASMA No comment entered. Ordering Provider: SARAI GOLDEN Report Released Date/Time: Jul 16, 2024 12:12 PM Reporting Lab: [facility] [address] Performing Lab: [facility] [address] LACTIC ACID 0.9 mmol/L 0.5-2.2 Jul 16, 2024 02:08 PM [facility] COMPREHENSIVE METABOLIC PANEL+MG Specimen Type: PLASMA No comment entered. Ordering Provider: SARAI GOLDEN Report Released Date/Time: Jul 16, 2024 12:12 PM Reporting Lab: [facility] [address] Performing Lab: [facility] [address] CREATININE 2.0 mg/dL H 0.7-1.2 UREA NITROGEN [...] L >60 Jul 16, 2024 02:08 PM [facility] CBC & DIFF Specimen Type: BLOOD Comment: Manual Differential Performed Ordering Provider: SARAI GOLDEN Report Released Date/Time: Jul 16, 2024 12:12 PM Reporting Lab: [facility] [address] Performing Lab: [facility] [address] WBC 19.7 H 4.0-11.0 RBC 5.39 4.60-6.20 [...] MORPHOLOGY PRESENT Jul 10, 2024 07:16 AM [facility] PHOSPHORUS Specimen Type: PLASMA No comment entered. Ordering Provider: JUANCARLOS ECHOLS Report Released Date/Time: Jul 09, 2024 12:23 PM Reporting Lab: [facility] [address] Performing Lab: [facility] [address] PHOSPHORUS 3.0 mg/dL 2.3-4.3 Jul 10, 2024 07:16 AM [facility] BASIC METABOLIC PANEL+MG Specimen Type: PLASMA No comment entered. Ordering Provider: JUANCARLOS ECHOLS S Report Released Date/Time: Jul 09, 2024 12:23 PM Reporting Lab: [facility] [address] Performing Lab: [facility] [address] CREATININE 0.7 mg/dL 0.7-1.2 UREA NITROGEN 27 [...] 2024 12:23 PM Reporting Lab: [facility] [address] Performing Lab: [facility] [address] WBC 18.8 H 4.0-11.0 RBC 5.08 4.60-6.20 [...] 2024 06:18 PM Reporting Lab: [facility] [address] Performing Lab: [facility] [address] WBC 15.3 H 4.0-11.0 RBC 4.91 4.60-6.20 [...] 2024 08:41 AM Reporting Lab: [facility] [address] Performing Lab: [facility] [address] URINE COLOR YELLOW SPECIFIC GRAVITY >1.050 H [...] 2024 04:49 PM Reporting Lab: [facility] [address] Performing Lab: [facility] [address] WBC 17.5 H 4.0-11.0 RBC 4.88 4.60-6.20 [...] 2024 04:49 PM Reporting Lab: [facility] [address] Performing Lab: [facility] [address] PHOSPHORUS 2.6 mg/dL 2.3-4.3 Jul 08, 2024 09:54 AM [facility] BASIC METABOLIC PANEL+MG Specimen Type: PLASMA Comment: Specimen received in Lab at: [id number] Ordering Provider: JUANCARLOS ECHOLS Report Released Date/Time: Jul 07, 2024 04:49 PM Reporting Lab: [facility] [address] Performing Lab: [facility] [address] CREATININE 0.9 mg/dL 0.7-1.2 UREA NITROGEN 26 [...] 2024 12:26 PM Reporting Lab: [facility] [address] Performing Lab: [facility] [address] C DIFF TOX B GENE PCR NEGATIVE Negative Jul 07, 2024 07:41 AM [facility] PHOSPHORUS Specimen Type: PLASMA No comment entered. Ordering Provider: JEVON ZAZUETA Report Released Date/Time: Jul 06, 2024 03:44 PM Reporting Lab: [facility] [address] Performing Lab: [facility] [address] PHOSPHORUS 3.1 mg/dL 2.3-4.3 Jul 07, 2024 07:41 AM [facility] BASIC METABOLIC PANEL+MG Specimen Type: PLASMA No comment entered. Ordering Provider: JEVON ZAZUETA Report Released Date/Time: Jul 06, 2024 03:44 PM Reporting Lab: [facility] [address] Performing Lab: [facility] [address] CREATININE 0.9 mg/dL 0.7-1.2 UREA NITROGEN 20 [...] 2024 03:44 PM Reporting Lab: [facility] [address] Performing Lab: [facility] [address] WBC 21.2 H 4.0-11.0 RBC 5.09 4.60-6.20 [...] 2024 01:22 PM Reporting Lab: [facility] [address] Performing Lab: [facility] [address] WBC 18.0 H 4.0-11.0 RBC 4.83 4.60-6.20 [...] 2024 01:22 PM Reporting Lab: [facility] [address] Performing Lab: [facility] [address] PHOSPHORUS 3.6 mg/dL 2.3-4.3 Jul 06, 2024 07:21 AM [facility] BASIC METABOLIC PANEL+MG Specimen Type: PLASMA No comment entered. Ordering Provider: JEVON ZAZUETA Report Released Date/Time: Jul 05, 2024 01:22 PM Reporting Lab: [facility] [address] Performing Lab: [facility] [address] CREATININE 0.7 mg/dL 0.7-1.2 UREA NITROGEN 12 [...] 2024 09:39 AM Reporting Lab: [facility] [address] Performing Lab: [facility] [address] MAGNESIUM 2.0 mg/dL 1.6-2.6 Jul 05, 2024 07:17 AM [facility] PHOSPHORUS Specimen Type: PLASMA No comment entered. Ordering Provider: JUANCARLOS ECHOLS S Report Released Date/Time: Jul 04, 2024 09:39 AM Reporting Lab: [facility] [address] Performing Lab: [facility] [address] PHOSPHORUS 2.0 mg/dL L 2.3-4.3 Jul 05, 2024 07:17 AM [facility] BASIC METABOLIC PANEL+MG Specimen Type: PLASMA No comment entered. Ordering Provider: JUANCARLOS ECHOLS S Report Released Date/Time: Jul 04, 2024 09:39 AM Reporting Lab: [facility] [address] Performing Lab: [facility] [address] CREATININE 0.7 mg/dL 0.7-1.2 UREA NITROGEN 12 [...] 2024 09:39 AM Reporting Lab: [facility] [address] Performing Lab: [facility] [address] WBC 18.3 H 4.0-11.0 RBC 4.49 L [...] 2024 06:31 PM Reporting Lab: [facility] [address] Performing Lab: [facility] [address] CREATININE 0.7 mg/dL 0.7-1.2 UREA NITROGEN 16 [...] 2024 06:31 PM Reporting Lab: [facility] [address] Performing Lab: [facility] [address] PHOSPHORUS 2.8 mg/dL 2.3-4.3 Jul 04, 2024 07:16 AM [facility] CBC Specimen Type: BLOOD No comment entered. Ordering Provider: GABINO CAMERON Report Released Date/Time: Jul 03, 2024 06:31 PM Reporting Lab: [facility] [address] Performing Lab: [facility] [address] WBC 20.6 H 4.0-11.0 RBC 4.63 4.60-6.20 [...] 2024 06:31 PM Reporting Lab: [facility] [address] Performing Lab: [facility] [address] WBC 20.6 H 4.0-11.0 RBC 4.63 4.60-6.20 [...] 2024 06:31 PM Reporting Lab: [facility] [address] Performing Lab: [facility] [address] BNP 292 pg/mL H <99 Jul 03, 2024 10:32 PM [facility] FINGERSTICK GLUCOSE Specimen Type: BLOOD Comment: Save Result Nurse Notified Ordering Provider: KATELYNN PERSON Report Released Date/Time: Jul 03, 2024 10:50 PM Reporting Lab: [facility] [address] Performing Lab: [facility] [address] FINGERSTICK GLUCOSE 126 mg/dL H 70-100 Jul 03, 2024 05:33 PM [facility] FINGERSTICK GLUCOSE Specimen Type: BLOOD Comment: Save Result Nurse Notified Ordering Provider: KATELYNN PERSON Report Released Date/Time: Jul 03, 2024 05:46 PM Reporting Lab: [facility] [address] Performing Lab: [facility] [address] FINGERSTICK GLUCOSE 141 mg/dL H 70-100 Jul 03, 2024 02:31 PM [facility] POC ABG/ELECTROLYTES Specimen Type: ARTERIAL BLOOD Comment: FIO2 = 97% Patient Temp: 36.0 C Sample Type = ARTERIAL Ordering Provider: MAZIN ARREDONDO Report Released Date/Time: Jul 03, 2024 01:48 PM Reporting Lab: [facility] [address] Performing Lab: [facility] [address] POC PH 7.387 7.35-7.45 POC PCO2 34.4 [...] 2024 01:48 PM Reporting Lab: [facility] [address] Performing Lab: [facility] [address] POC PH 7.280 L 7.35-7.45 POC PCO2 [...] 2024 04:01 PM Reporting Lab: [facility] [address] Performing Lab: [facility] [address] URINE COLOR YELLOW SPECIFIC GRAVITY 1.031 1.003-1.03 [...] 2024 03:59 PM Reporting Lab: [facility] [address] Performing Lab: [facility] [address] WBC 15.8 H 4.0-11.0 RBC 5.11 4.60-6.20 [...] 2024 06:07 PM Reporting Lab: [facility] [address] Performing Lab: [facility] [address] CREATININE 0.8 mg/dL 0.7-1.2 UREA NITROGEN 13 [...] BLOOD Comment: Specimen received in Lab at: [id number] Ordering Provider: JEVON ZAZUETA Report Released Date/Time: Jun 23, 2024 06:07 PM Reporting Lab: [facility] [address] Performing Lab: [facility] [address] WBC 15.5 H 4.0-11.0 RBC 4.93 4.60-6.20 [...] 2024 05:51 PM Reporting Lab: [facility] [address] Performing Lab: [facility] [address] CREATININE 0.7 mg/dL 0.7-1.2 UREA NITROGEN 16 [...] 2024 05:51 PM Reporting Lab: [facility] [address] Performing Lab: [facility] [address] WBC 14.9 H 4.0-11.0 RBC 5.09 4.60-6.20 [...] 2024 05:51 PM Reporting Lab: [facility] [address] Performing Lab: [facility] [address] WBC 16.9 H 4.0-11.0 RBC 5.28 4.60-6.20 [...] 2024 05:51 PM Reporting Lab: [facility] [address] Performing Lab: [facility] [address] CREATININE 0.7 mg/dL 0.7-1.2 UREA NITROGEN 17 [...] 2024 05:45 PM Reporting Lab: [facility] [address] Performing Lab: [facility] [address] URINE COLOR YELLOW SPECIFIC GRAVITY 1.041 H [...] 2024 06:07 PM Reporting Lab: [facility] [address] Performing Lab: [facility] [address] POC CREATININE 1.1 mg/dL 0.6-1.3 Jun 21, 2024 05:30 PM [facility] POC ABG/LACTATE Specimen Type: VENOUS BLOOD No comment entered. Ordering Provider: DELIA MARTINEZ Report Released Date/Time: Jun 21, 2024 06:07 PM Reporting Lab: [facility] [address] Performing Lab: [facility] [address] POC PH 7.470 H 7.31-7.41 POC PCO2 [...] 2024 05:30 PM Reporting Lab: [facility] [address] Performing Lab: [facility] [address] .INR 1.2 H 0.8-1.1 .PT 13.9 s H 9.4-12.5 Jun 21, 2024 05:24 PM [facility] LIPASE Specimen Type: PLASMA No comment entered. Ordering Provider: DELIA MARTINEZ Report Released Date/Time: Jun 21, 2024 05:30 PM Reporting Lab: [facility] [address] Performing Lab: [facility] [address] LIPASE 32 U/L <60 Jun 21, 2024 05:24 PM [facility] EXTRA GOLD GEL TUBE Specimen Type: SERUM No comment entered. Ordering Provider: DELIA MARTINEZ Report Released Date/Time: Jun 21, 2024 05:41 PM Reporting Lab: [facility] [address] Performing Lab: [facility] [address] EXTRA GOLD GEL TUBE RECEIVED Jun 21, 2024 05:24 PM [facility] COMPREHENSIVE METABOLIC PANEL+MG Specimen Type: PLASMA No comment entered. Ordering Provider: DELIA MARTINEZ Report Released Date/Time: Jun 21, 2024 05:30 PM Reporting Lab: [facility] [address] Performing Lab: [facility] [address] CREATININE 0.9 mg/dL 0.7-1.2 UREA NITROGEN 29 [...] 2024 05:30 PM Reporting Lab: [facility] [address] Performing Lab: [facility] [address] WBC 21.3 H 4.0-11.0 RBC 5.48 4.60-6.20 [...] 18, 2024 11:21 PM 9 JAIME LOZANO [facility] Social History: Smoking Status [...] 2016 CLINICAL WARNING TIM TERAN CARLOSEDUARDO LOZANO [facility] Radiology Reports: +/- 30 [...] PM CHEST 1 VIEW: FLACA WEAVER YAMIL [id number] -1950 M Exm Date: JUL 18, 2024@18:15 Req Phys: LEISA GOLDEN Pat Loc: 07-18-2024@19:00 Img Loc: MAIN X-RAY Service: [place] [address] (Case [id number] COMPLETE) CHEST 1 VIEW (RAD Detailed) CPT:42517 Proc Modifiers : PORTABLE EXAM Reason for Study: SOB Clinical History: IS NOT under investigation for COVID-19 or is COVID-19 negative 73 yo with SOB Responsible provider name and phone number to notify for critical findings if other than user placing the order and pager listed below: User placing orders pager: [phone] LAST CREATININE 1.2 (07/17/24) Report Status: Verified Date Reported: JUL 18, 2024 Date Verified: JUL 18, 2024 Perfusionist E-Sig:/ES/CARLOS A CUNNINGHAM DO Report: EXAMINATION: CHEST 1 VIEW Reason for Study: SOB [place] IS NOT under investigation for COVID-19 or is COVID-19 negative 73 yo with SOB Responsible provider name and phone number to notify for critical findings if other than user placing the order and pager listed below: User placing orders pager: [phone] LAST CREATININE 1.2 (07/17/24) SOB TECHNIQUE: Single [...] Interpreting Staff: CARLOS A CUNNINGHAM DO, RADIOLOGIST (Perfusionist) /[facility] CARLOS A CUNNINGHAM [facility] Jul 16, 2024 07:49 AM [facility] CT ABDOMEN/PELVIS: FLACA WEAVER [id number] -1950 M Exm Date: JUL 16, 2024@07:49 Req Phys: KEOEDGARDOGISELLSWEETIEJATINDER [place] Pat Loc: 07-17-2024@09:02 Img Loc: OUTSOURCE CT Service: Unknown (Case [id number] COMPLETE) NON [place] ABDOMEN/PELVIS (CT Detailed) CPT:55089 Reason for Study: outside study Clinical History: [...] / *ELECTRONICALLY FILED* [facility] Jul 13, 2024 09:[address] [place] [address] ABDOMEN/PELVIS: FLACA WEAVER [id number] -1950 M Exm Date: JUL 13, 2024@09:41 Req Phys: ELIJATINDER Onofre Amanda Loc: 3ES07-17-2024@09:08 Img Loc: OUTSOURCE CT Service: Unknown (Case [id number] COMPLETE) NON [place] ABDOMEN/PELVIS (CT Detailed) CPT:81751 Reason for Study: outside study Clinical History: [...] / *ELECTRONICALLY FILED* [facility] Jul 08, 2024 10:09 AM CHEST 2 VIEWS PA AND LAT: FLACA WEAVER [id number] -1950 M Exm Date: JUL 08, 2024@10:09 Req Phys: KATELYNN PERSON Loc: 07-08-2024@11:49 Img Loc: MAIN X-RAY Service: [place] [address] (Case 24 COMPLETE) CHEST 2 VIEWS PA AND LAT (RAD Detailed) CPT:21665 Reason for Study: Uptrending WBC, POD 5 [...] 08, 2024 Date Verified: JUL 08, 2024 Perfusionist E-Sig: Report: CHEST 2 VIEWS PA AND [...] cardiopulmonary disease. READING PHYSICIAN: Sarbjit Vaughn M.D. -[phone] 07/08/2024 12:46 EST [facility] National Teleradiology Program [phone] (For Medical Practitioner Use Only) Attention Patients / Veterans: If you have questions or concerns about these test results, please contact your ordering provider or primary care team. Primary Interpreting Staff: RADIOLOGY,OUTSIDE SERVICE, Staff Physician / RADIOLOGY,OUTSIDE SERVICE [facility] Jul 08, 2024 10:[address] (AP) ABDOMEN/PELVIS W CONTRAST: MEGFLACA YAMIL [id number] -1950 M Ex Date: JUL 08, 2024@10:00 Req Phys: KATELYNN PERSON [facility] Loc: [facility]/07-08-2024@12:07 Img Loc: CT IMAGING Service: [place] [address] (Case 22 COMPLETE) CT (AP) ABDOMEN/PELVIS W CONTRAST(CT Detailed) CPT:75246 Contrast Media : Non-ionic Iodinated Reason for [...] PLASMA .CREAT EGFR(CKD-E >90 Ref: >=60 Allergies: ([place] only) TERAZOSIN (Mar 13, 2015) Report Status: Verified Date Reported: JUL 08, 2024 Date Verified: JUL 08, 2024 Perfusionist E-Sig: Report: CT (AP) ABDOMEN/PELVIS W CONTRAST [...] as noted above READING PHYSICIAN: Celestino Blanc -[id number] 07/08/2024 13:04 EST [facility] National Teleradiology Program [phone] (For Medical Practitioner Use Only) Attention Patients / Veterans: If you have questions or concerns about these test results, please contact your ordering provider or primary care team. Primary Interpreting Staff: RADIOLOGY,OUTSIDE SERVICE, Staff Physician / RADIOLOGY,OUTSIDE SERVICE [facility] Jun 22, 2024 11:49 AM ABSCESS DRAIN PLACEMENT PERITONEAL (P): MEGFLACA YAMIL [id number] -1950 M Exm Date: JUN 22, 2024@11:49 Req Phys: ANGELA HOLDEN Loc: [facility]/06-22-2024@17:14 Img Loc: INTERVENTIONAL RADIOLOGY Service: [place] [address] (Case [id number] COMPLETE) IR PERITONEAL/RETROPERITONEAL PER(ANI Detailed) CPT:68285 Reason for Study: diverticulitis with abscess (Case 3570 COMPLETE) IR MOD SEDATION 10-22 MIN (ANI Detailed) CPT:27578 Clinical History: [place] IS NOT under investigation for COVID-19 or is COVID-19 negative 73 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 please place abscess drain. Contact number for responsible provider who can be reached for any questions or notifications of critical findings: [phone] n/a LAST CREATININE 0.9 (06/21/24) Report Status: Verified Date Reported: JUN 22, 2024 Date Verified: JUN 22, 2024 Perfusionist E-Sig:/ES/LISA PENDLETON MD Report: PROCEDURES: Placement of [...] anesthesia. Using real-time CT fluoroscopy, a 5 [place] Lender Sentinelesis catheter was advanced into the collection in the left pelvis. A wire was coiled in the collection. The tract into the collection was dilated to accommodate the 12 Lao locking pigtail drainage catheter. There was return [...] Primary Interpreting Staff: LISA PENDLETON MD, RADIOLOGIST (Perfusionist) /LISA CARDONA [facility] Jun 22, 2024 11:[address] NEEDLE PLACEMENT (P): FLACA WEAVER [id number] -1950 M Exm Date: JUN 22, 2024@11:48 Req Phys: ANGELA HOLDEN [facility] Loc: [facility]06-22-2024@17:14 Im Loc: CT IMAGING Service: [place] [address] (Case [id number] COMPLETE) CT SCAN FOR NEEDLE PLACEMENT (CT Detailed) CPT:58925 Reason for Study: l pelvic abscess drain Clinical History: Report Status: Verified Date Reported: JUN 22, 2024 Date Verified: JUN 22, 2024 Perfusionist E-Sig:/ES/LISA PENDLETON MD Report: PROCEDURES: Placement of [...] anesthesia. Using real-time CT fluoroscopy, a 5 Lao Lender Sentinelesis catheter was advanced into the collection in the left pelvis. A wire was coiled in the collection. The tract into the collection was dilated to accommodate the 12 Lao locking pigtail drainage catheter. There was return [...] Primary Interpreting Staff: LISA PENDLETON MD, RADIOLOGIST (Perfusionist) /JRT LISA PENDLETON [facility] Jun 21, 2024 06:[address] (AP) ABDOMEN/PELVIS (P): FLACA WEAVER [id number] -1950 Ex Date: JUN 21, 2024@18:09 Req Phys: DELIA MARTINEZ Loc: [facility] EMERGENCY DEPT WALK-IN (Re Img Loc: CT IMAGING Service: [place] [address] (Case [id number] COMPLETE) CT (AP) ABDOMEN/PELVIS W CONTRAST(CT Detailed) CPT:73679 Contrast Media : Non-ionic Iodinated Reason for [...] PLASMA .CREAT EGFR(CKD-E >90 Ref: >=60 Allergies: ([place] only) TERAZOSIN (Mar 13, 2015) Defer to [...] 21, 2024 Date Verified: JUN 21, 2024 Perfusionist E-Sig:/ES/CARLOS A CUNNINGHAM DO Report: EXAMINATION: CT [...] Interpreting Staff: CARLOS A CUNNINGHAM DO, RADIOLOGIST (Perfusionist) /CARLOS A ROWELL [facility] [...] Reporting Lab: [facility] [CLIA# [id number]] [place] [address] Accession [UID]: [id number] [[id number]] Received: Jul 16, 2024@14:41 Collection sample: BLOOD Collection date: Jul 16, 2024 14:07 Provider: LEISA GOLDEN Comment on specimen: Manish AC, RECEIVED 2 BLOOD CULTURE BOTTLES Test(s) ordered: CULTURE & SUSCEPTIBILITY...... completed: Jul 22, 2024 * BACTERIOLOGY FINAL REPORT => Jul 22, 2024 13:39 TECH CODE: [id number] CULTURE RESULTS: NO GROWTH 5 DAYS Bacteriology Remark(s): THIS REPORT IS FINAL =--=--=--=--=--=--=--=--=--= --=--=--=--=--=--=--=--=--=- -=--=--=--=--=--=--=-- Performing Laboratory: Bacteriology Report Performed By: [facility] [CLIA# [id number]] [place] [address] [facility] Jul 16, 2024 01:54 PM LR MICROBIOLOGY RE PORT: Reporting Lab: [facility] [CLIA# [id number]] [place] [address] Accession [UID]: [id number] [[id number]] Received: Jul 16, 2024@14:41 Collection sample: BLOOD Collection date: Jul 16, 2024 13:54 Provider: LEISA GOLDEN Comment on specimen: L AC, RECEIVED 2 BLOOD CULTURE BOTTLES Test(s) ordered: CULTURE & SUSCEPTIBILITY...... completed: Jul 22, 2024 * BACTERIOLOGY FINAL REPORT => Jul 22, 2024 13:39 TECH CODE: [id number] CULTURE RESULTS: NO GROWTH 5 DAYS Bacteriology Remark(s): THIS REPORT IS FINAL =--=--=--=--=--=--=--=--=--= --=--=--=--=--=--=--=--=--=- -=--=--=--=--=--=--=-- Performing Laboratory: Bacteriology Report Performed By: [facility] [CLIA# [id number]] [place] [address] [facility] Jul 03, 2024 05:59 AM LR SURGICAL PATHOL OGY REPORT: LOCAL TITLE: LR SURGICAL PATHOLOGY REPORT STANDARD TITLE: PATHOLOGY REPORT DATE OF NOTE: JUL 06, 2024@10:40:48 ENTRY DATE: JUL 06, 2024@10:40:48 AUTHOR: EDUARDO PALOMARES EXP COSIGNER: URGENCY: STATUS: COMPLETED $APHDR Reporting Lab: [facility] [CLIA# [id number]] [place] [address] - - - - - - - [...] - PATHOLOGY REPORT Accession No. [id number] - - - - - - - [...] - PATHOLOGY REPORT Accession No. [id number] - - - - - - - [...] Second circumferential surgical margin, en face; E-F: Bi Tri Operator diverticula; G: Bi Tri Operator section of mesentery; H: Random event representative section of additional adipose tissue fragment. [...] colonic tissue ring, bisected transversely. [facility]. [facility] [place] [place]OS[place] DESCRIPTION: Microscopic examination performed. DIAGNOSIS: 1. Colon, sigmoid, sigmoidectomy-- - Diverticulosis with perforation and focal abscess formation 2. 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 WEAVER STANDARD FORM 515 ID:[id number] SEX:M :1950 AGE: 73 LOC:58976 ADM:Jun DX:DIVERTICULITIS PCP: Jatinder Cabrera /alexi/ EDUARDO PALOMARES MD STAFF PATHOLOGIST Signed: 07/06/2024 10:40 EDUARDO PALOMARES [facility] Jun 22, 2024 01:15 PM LR MICROBIOLOGY RE PORT: Reporting Lab: [facility] [CLIA# [id number]] [place] [address] Accession [UID]: [id number] [[id number]] Received: Jun 22, 2024@13:38 Collection sample: FLUID Collection date: Jun 22, 2024 13:15 Provider: ANGELA HOLDEN Comment on specimen: LLQ ABSCESS, RECEIVED IN ANAEROBIC TRANSPORT VIAL Test(s) ordered: GRAM STAIN.................... completed: Jun 22, 2024 15:03 CULTURE & SUSCEPTIBILITY...... completed: Jun 25, 2024 * BACTERIOLOGY FINAL REPORT => Jun 25, 2024 10:56 TECH CODE: [id number] GRAM STAIN: DIRECT SMEAR of specimen before [...] Performed By: [facility] [CLIA# [id number]] [place] [address] [facility] Jun 22, 2024 01:15 PM LR MICROBIOLOGY RE PORT: Reporting Lab: [facility] [CLIA# [id number]] [place] [address] Accession [UID]: [id number] [[id number]] Received: Jun 22, 2024@13:38 Collection sample: FLUID Collection date: Jun 22, 2024 13:15 Provider: ANGELA HOLDEN Comment on specimen: LLQ ABSCESS, RECEIVED IN ANAEROBIC TRANSPORT VIAL Test(s) ordered: ANAEROBIC CULTURE............. completed: Jun 28, 2024 * BACTERIOLOGY FINAL REPORT => Jun 28, 2024 10:08 TECH CODE: [id number] CULTURE RESULTS: HEAVY GROWTH MIXED ANAEROBES Comment: [...] Performed By: [facility] [CLIA# [id number]] [place] [address] [facility] Jun 21, 2024 06:12 PM LR MICROBIOLOGY RE PORT: Reporting Lab: [facility] [CLIA# [id number]] [place] [address] Accession [UID]: [id number] [[id number]] Received: Jun 21, 2024@18:12 Collection sample: BLOOD [...] Performed By: [facility] [CLIA# [id number]] [place] [address] [facility] Jun 21, 2024 06:11 PM LR MICROBIOLOGY RE PORT: Reporting Lab: [facility] [CLIA# [id number]] [place] [address] Accession [UID]: [id number] [[id number]] Received: Jun 21, 2024@18:11 Collection sample: BLOOD [...] Performed By: [facility] [CLIA# [id number]] [place] [address] [facility] Encounter Notes: All associated encounter notes This section contains the clinical notes associated to the Encounter. Date/Time Encounter Note(s) Provider Source Jul 18, 2024 11:47 AM COLON & RECTAL ELISA BRAEDEN NOTE: LOCAL TITLE: COLON-RECTAL INPT PROGRESS NOTE STANDARD TITLE: COLON & RECTAL SURGERY NOTE DATE OF NOTE: JUL 18, 2024@11:47 ENTRY DATE: JUL 18, 2024@11:48:22 AUTHOR: LEI LAW COSIGNER: URGENCY: STATUS: COMPLETED INPATIENT PROGRESS NOTE Subjective: Patient reports he is having a lot of pain and this is not allowing him to sleep. Also reports oral medications make him feel ill and he will no longer be taking his oral medications. Would like his heart medications ordered, but told him we will defer to medicine team. Objective: General: Awake, Alert, Oriented X3, No apparent distress Cardio: regular rate Lungs: normal work of breathing Abd: soft, nontender, nondistended. Ostomy output liquid stool with some orange fluid Extrem: moves all 4 extremities Neuro: A&O Active Medications: Active Inpatient Medications (including Supplies): [...] to arouse and RR<8). Call provider or SERVICE INSPECTOR. May repeat every 2-3 min up to 3 total doses. Administer INTRAMUSCULARLY if no IV access. 7) ONDANSETRON INJ,SOLN 4MG/2ML IV Q6H PRN FOR NAUSEA ACTIVE 8) OXYCODONE TAB 5MG PO Q6H PRN FOR PAIN ACTIVE 9) PIPERACILLIN/TAZOBACTAM 4.5GM 100ML INJ in ACTIVE PIPERACIL/TAZOB 4.5GM PREMIX 100 ML INFUSE OVER 30 Minutes Pharmacy Confirmation #: [id number] IVPB Q6H 10) PSYLLIUM (INPT) POWDER,ORAL 1 PACKET (1 TEASPOONFUL) ACTIVE PO QDAY 11) SALINE FLUSH INJ 10ML IV Q8H AFTER EACH USE, MINIMUM ACTIVE OF EVERY SHIFT. 12) TRAZODONE TAB 25MG PO QHS PRN For insomnia. Do not ACTIVE give after 11 p.m. 13) VANCOMYCIN 1000MG/200ML PREMIX BAG INJ in VANCOMYCIN ACTIVE 1000MG PREMIX 200 ML DON'T USE IN INFUSE OVER 120 Minutes Start 07/17 PM. Expires 07/19 @noon IV Q12H Labs: - INR: INR 1.2 H PLASMA [...] ALBUMIN 4.3 (07/17/24) BILIRUBIN, TOTAL 0.8 (07/17/24) Assessment/Plan: 74 y/o with PMHx CAD, HLD, [...] conservative interventions. - Continue fiber and loperamide to lower ileostomy output. Continue close monitoring of ileostomy output - As long as patient intaking appropriate amount of fluids, no need for further IVF - Continue regular diet - Abdominal binder for fascial dehiscence Current Level of Care: Acute Disposition: The patient's history, findings, assessment and plan were discussed with colorectal fellow Dr. Alas, who agrees with the plan. /alexi/ LEI LAW General Surgery Resident Signed: 07/18/2024 12:00 Receipt Acknowledged By: 07/19/2024 01:09 /alexi/ WENCESLAO ARREDONDO MD STAFF SURGEON, COLON/RECTAL LEI LAW [facility]
--- OUTSIDE RECORDS SUMMARY | 2024-08-01 07:59 | XMS_ITS ---
[place] DAILY HOSPITALIZATION DATA [facility] Encounter Summary Created on: August 01, 2024 MEG FLACADARCI LOBO : 1950 Sex: Male Author Name [facility] [facility] [place] Address [address] [place] [address] Care Team Providers Care Armored Car Messenger Name Role Phone JATINDER CABRERA Primary Care [...] PART A Sep 29, 2016 PART A [id number] JUDY WEAVER PATIENT Selected Encounter This section includes the information on record at [place] for the Encounter. Date/Time Encounter Type Encounter Description Reason Pro vider Source Jul 18, 2024 06:39 AM Inpatient Visit DAILY HOSPITALIZATION DATA IHE [...] Chemi stry Order URINALYSIS URINE WC ONCE [facility] Jun 12, 2024 12:00 AM Laboratory - Chemi stry Order BNP PLASMA SP ONCE [facility] Jun 21, 2024 05:45 PM Laboratory - Blood Bank Order TYPE & SCREEN - LAB BLOOD WC [facility] Jul 03, 2024 12:00 AM Laboratory - Blood Bank Order TYPE & SCREEN - LAB BLOOD WC [facility] Jul 16, 2024 12:00 AM Laboratory - Chemi stry Order CBC BLOOD SP ONCE [facility] Jul 17, 2024 12:00 AM Laboratory - Chemi stry Order BASIC METABOLIC PANEL+MG PLASMA SP ONCE [facility] Lab Results: +/- 30 [...] Range Comment Jul 21, 2024 10:38 AM [facility] BASIC METABOLIC PANEL+MG Specimen Type: PLASMA No comment entered. Ordering Provider: SARAI GOLDEN Report Released Date/Time: Jul 20, 2024 06:50 PM Reporting Lab: [facility] [address] Performing Lab: [facility] [address] CREATININE 0.8 mg/dL 0.7-1.2 UREA NITROGEN 31 mg/dL H 8-26 GLUCOSE 120 mg/dL H 70-100 SODIUM 125 mmol/L L 136-145 POTASSIUM 4.4 mmol/L 3.5-5.1 CHLORIDE 100 mmol/L 98-107 CO2 17 mmol/L L 22-29 CALCIUM 9.6 mg/dL 8.4-10.2 MAGNESIUM 1.9 mg/dL 1.6-2.6 ANION GAP 8 mmol/L 5-15 .CREAT EGFR(CKD-EPI) >90 >60 Jul 21, 2024 10:38 AM [facility] CBC Specimen Type: BLOOD No comment entered. Ordering Provider: SARAI GOLDEN Report Released Date/Time: Jul 20, 2024 06:50 PM Reporting Lab: [facility] [address] Performing Lab: [facility] [address] WBC 16.0 H 4.0-11.0 RBC 5.16 4.60-6.20 HGB 15.8 g/dL 13.5-17.9 HCT 45.5 41.0-54.0 MCV 88.2 fL 80.0-100.0 MCH 30.6 pg 27.0-33.0 MCHC 34.7 g/dL 32.0-37.5 PLT 428 H 150-400 MPV 10.8 fL 9.1-13.0 RDW 13.6 11.5-14.5 Jul 20, 2024 01:00 PM [facility] SODIUM,URINE RANDOM Specimen Type: URINE No comment entered. Ordering Provider: SARAI GOLDEN Report Released Date/Time: Jul 20, 2024 08:22 AM Reporting Lab: [facility] [address] Performing Lab: [facility] [address] SODIUM,URINE RANDOM <20 mmol/L Jul 20, 2024 01:00 PM [facility] OSMOLALITY,URINE Specimen Type: URINE No comment entered. Ordering Provider: SARAI GOLDEN Report Released Date/Time: Jul 20, 2024 08:22 AM Reporting Lab: [facility] [address] Performing Lab: [facility] [address] OSMOLALITY,URIN E 648 mosm/kg 500-800 Jul 20, 2024 06:45 AM [facility] BASIC METABOLIC PANEL+MG Specimen Type: PLASMA No comment entered. Ordering Provider: SARAI GOLDEN Report Released Date/Time: Jul 19, 2024 06:13 PM Reporting Lab: [facility] [address] Performing Lab: [facility] [address] CREATININE 0.8 mg/dL 0.7-1.2 UREA NITROGEN 36 mg/dL H 8-26 GLUCOSE 111 mg/dL H 70-100 SODIUM 121 mmol/L L 136-145 POTASSIUM 4.1 mmol/L 3.5-5.1 CHLORIDE 99 mmol/L 98-107 CO2 14 mmol/L L 22-29 CALCIUM 9.5 mg/dL 8.4-10.2 MAGNESIUM 1.8 mg/dL 1.6-2.6 ANION GAP 8 mmol/L 5-15 .CREAT EGFR(CKD-EPI) >90 >60 Jul 20, 2024 06:43 AM [facility] CBC & DIFF Specimen Type: BLOOD Comment: Automated Differential Performed Ordering Provider: SARAI GOLDEN Report Released Date/Time: Jul 19, 2024 06:13 PM Reporting Lab: [facility] [address] Performing Lab: [facility] [address] WBC 16.6 H 4.0-11.0 RBC 4.96 4.60-6.20 [...] H 0.0-0.1 Jul 20, 2024 05:30 AM [facility] OSMOLALITY,SERUM Specimen Type: SERUM No comment entered. Ordering Provider: SARAI GOLDEN Report Released Date/Time: Jul 20, 2024 09:47 AM Reporting Lab: [facility] [address] Performing Lab: [facility] [address] OSMOLALITY,SERU M 266 mosm/kg L 276-305 Jul 19, 2024 08:57 AM [facility] BASIC METABOLIC PANEL+MG Specimen Type: PLASMA No comment entered. Ordering Provider: SARAI GOLDEN Report Released Date/Time: Jul 18, 2024 10:24 PM Reporting Lab: [facility] [address] Performing Lab: [facility] [address] CREATININE 1.0 mg/dL 0.7-1.2 UREA NITROGEN 40 mg/dL H 8-26 GLUCOSE 104 mg/dL H 70-100 SODIUM 129 mmol/L L 136-145 POTASSIUM 3.3 mmol/L L 3.5-5.1 CHLORIDE 104 mmol/L 98-107 CO2 16 mmol/L L 22-29 CALCIUM 8.0 mg/dL L 8.4-10.2 MAGNESIUM 1.7 mg/dL 1.6-2.6 ANION GAP 9 mmol/L 5-15 .CREAT EGFR(CKD-EPI) 80 >60 Jul 19, 2024 08:57 AM [facility] CBC Specimen Type: BLOOD No comment entered. Ordering Provider: SARAI GOLDEN Report Released Date/Time: Jul 18, 2024 10:24 PM Reporting Lab: [facility] [address] Performing Lab: [facility] [address] WBC 17.3 H 4.0-11.0 RBC 4.83 4.60-6.20 HGB 14.8 g/dL 13.5-17.9 HCT 42.6 41.0-54.0 MCV 88.2 fL 80.0-100.0 MCH 30.6 pg 27.0-33.0 MCHC 34.7 g/dL 32.0-37.5 PLT 456 H 150-400 MPV 10.8 fL 9.1-13.0 RDW 13.7 11.5-14.5 Jul 17, 2024 06:55 PM [facility] PHOSPHORUS Specimen Type: PLASMA No comment entered. Ordering Provider: SARAI GOLDEN Report Released Date/Time: Jul 17, 2024 01:54 PM Reporting Lab: [facility] [address] Performing Lab: [facility] [address] PHOSPHORUS 2.9 mg/dL 2.3-4.3 Jul 17, 2024 06:55 PM [facility] BASIC METABOLIC PANEL+MG Specimen Type: PLASMA No comment entered. Ordering Provider: SARAI GOLDEN Report Released Date/Time: Jul 17, 2024 01:54 PM Reporting Lab: [facility] [address] Performing Lab: [facility] [address] CREATININE 1.2 mg/dL 0.7-1.2 UREA NITROGEN 62 mg/dL H 8-26 GLUCOSE 116 mg/dL H 70-100 SODIUM 128 mmol/L L 136-145 POTASSIUM 3.8 mmol/L 3.5-5.1 CHLORIDE 100 mmol/L 98-107 CO2 16 mmol/L L 22-29 CALCIUM 9.3 mg/dL 8.4-10.2 MAGNESIUM 2.1 mg/dL 1.6-2.6 ANION GAP 12 mmol/L 5-15 .CREAT EGFR(CKD-EPI) 64 >60 Jul 17, 2024 07:00 AM [facility] CBC & DIFF Specimen Type: BLOOD Comment: Manual Differential Performed Ordering Provider: SARAI GOLDEN Report Released Date/Time: Jul 16, 2024 04:52 PM Reporting Lab: [facility] [address] Performing Lab: [facility] [address] WBC 18.9 H 4.0-11.0 RBC 5.55 4.60-6.20 [...] MORPHOLOGY PRESENT Jul 17, 2024 07:00 AM [facility] ALBUMIN Specimen Type: PLASMA No comment entered. Ordering Provider: SARAI GOLDEN Report Released Date/Time: Jul 16, 2024 12:12 PM Reporting Lab: [facility] [address] Performing Lab: [facility] [address] ALBUMIN 4.3 g/dL 3.5-5.0 Jul 17, 2024 07:00 AM [facility] COMPREHENSIVE METABOLIC PANEL+MG Specimen Type: PLASMA No comment entered. Ordering Provider: SARAI GOLDEN Report Released Date/Time: Jul 16, 2024 04:52 PM Reporting Lab: [facility] [address] Performing Lab: [facility] [address] CREATININE 1.3 mg/dL H 0.7-1.2 UREA NITROGEN [...] L >60 Jul 16, 2024 07:10 PM [facility] LACTIC ACID Specimen Type: PLASMA No comment entered. Ordering Provider: SARAI GOLDEN Report Released Date/Time: Jul 16, 2024 12:12 PM Reporting Lab: [facility] [address] Performing Lab: [facility] [address] LACTIC ACID 0.9 mmol/L 0.5-2.2 Jul 16, 2024 02:14 PM [facility] MRSA SURVL NARES DNA Specimen Type: NARES No comment entered. Ordering Provider: SARAI GOLDEN Report Released Date/Time: Jul 16, 2024 12:12 PM Reporting Lab: [facility] [address] Performing Lab: [facility] [address] MRSA SURVL NARES DNA NEGATIVE Negative Jul 16, 2024 02:10 PM [facility] LACTIC ACID Specimen Type: PLASMA No comment entered. Ordering Provider: SARAI GOLDEN Report Released Date/Time: Jul 16, 2024 12:12 PM Reporting Lab: [facility] [address] Performing Lab: [facility] [address] LACTIC ACID 0.9 mmol/L 0.5-2.2 Jul 16, 2024 02:08 PM [facility] COMPREHENSIVE METABOLIC PANEL+MG Specimen Type: PLASMA No comment entered. Ordering Provider: SARAI GOLDEN Report Released Date/Time: Jul 16, 2024 12:12 PM Reporting Lab: [facility] [address] Performing Lab: [facility] [address] CREATININE 2.0 mg/dL H 0.7-1.2 UREA NITROGEN [...] L >60 Jul 16, 2024 02:08 PM [facility] CBC & DIFF Specimen Type: BLOOD Comment: Manual Differential Performed Ordering Provider: SARAI GOLDEN Report Released Date/Time: Jul 16, 2024 12:12 PM Reporting Lab: [facility] [address] Performing Lab: [facility] [address] WBC 19.7 H 4.0-11.0 RBC 5.39 4.60-6.20 [...] MORPHOLOGY PRESENT Jul 10, 2024 07:16 AM [facility] PHOSPHORUS Specimen Type: PLASMA No comment entered. Ordering Provider: JUANCARLOS ECHOLS Report Released Date/Time: Jul 09, 2024 12:23 PM Reporting Lab: [facility] [address] Performing Lab: [facility] [address] PHOSPHORUS 3.0 mg/dL 2.3-4.3 Jul 10, 2024 07:16 AM [facility] BASIC METABOLIC PANEL+MG Specimen Type: PLASMA No comment entered. Ordering Provider: JUANCARLOS ECHOLS S Report Released Date/Time: Jul 09, 2024 12:23 PM Reporting Lab: [facility] [address] Performing Lab: [facility] [address] CREATININE 0.7 mg/dL 0.7-1.2 UREA NITROGEN 27 mg/dL H 8-26 GLUCOSE 104 mg/dL H 70-100 SODIUM 133 mmol/L L 136-145 POTASSIUM 4.3 mmol/L 3.5-5.1 CHLORIDE 102 mmol/L 98-107 CO2 19 mmol/L L 22-29 CALCIUM 10.1 mg/dL 8.4-10.2 MAGNESIUM 1.9 mg/dL 1.6-2.6 ANION GAP 12 mmol/L 5-15 .CREAT EGFR(CKD-EPI) >90 >60 Jul 10, 2024 07:15 AM [facility] CBC Specimen Type: BLOOD No comment entered. Ordering Provider: JUANCARLOS ECHOLS Report Released Date/Time: Jul 09, 2024 12:23 PM Reporting Lab: [facility] [address] Performing Lab: [facility] [address] WBC 18.8 H 4.0-11.0 RBC 5.08 4.60-6.20 HGB 15.9 g/dL 13.5-17.9 HCT 46.8 41.0-54.0 MCV 92.1 fL 80.0-100.0 MCH 31.3 pg 27.0-33.0 MCHC 34.0 g/dL 32.0-37.5 PLT 479 H 150-400 MPV 10.2 fL 9.1-13.0 RDW 13.7 11.5-14.5 Jul 09, 2024 07:08 AM [facility] CBC Specimen Type: BLOOD No comment entered. Ordering Provider: QUYNH WEISS Report Released Date/Time: Jul 08, 2024 06:18 PM Reporting Lab: [facility] [address] Performing Lab: [facility] [address] WBC 15.3 H 4.0-11.0 RBC 4.91 4.60-6.20 HGB 15.1 g/dL 13.5-17.9 HCT 45.7 41.0-54.0 MCV 93.1 fL 80.0-100.0 MCH 30.8 pg 27.0-33.0 MCHC 33.0 g/dL 32.0-37.5 PLT 443 H 150-400 MPV 10.0 fL 9.1-13.0 RDW 13.5 11.5-14.5 Jul 08, 2024 10:50 AM [facility] URINALYSIS Specimen Type: URINE No comment entered. Ordering Provider: KATELYNN PERSON Report Released Date/Time: Jul 08, 2024 08:41 AM Reporting Lab: [facility] [address] Performing Lab: [facility] [address] URINE COLOR YELLOW SPECIFIC GRAVITY >1.050 H [...] NEGATIVE NEGATIVE Jul 08, 2024 09:54 AM [facility] CBC Specimen Type: BLOOD Comment: Specimen received in Lab at: [id number] Ordering Provider: JUANCARLOS ECHOLS Report Released Date/Time: Jul 07, 2024 04:49 PM Reporting Lab: [facility] [address] Performing Lab: [facility] [address] WBC 17.5 H 4.0-11.0 RBC 4.88 4.60-6.20 HGB 14.9 g/dL 13.5-17.9 HCT 45.7 41.0-54.0 MCV 93.6 fL 80.0-100.0 MCH 30.5 pg 27.0-33.0 MCHC 32.6 g/dL 32.0-37.5 PLT 472 H 150-400 MPV 10.2 fL 9.1-13.0 RDW 13.7 11.5-14.5 Jul 08, 2024 09:54 AM [facility] PHOSPHORUS Specimen Type: PLASMA Comment: Specimen received in Lab at: [id number] Ordering Provider: JUANCARLOS ECHOLS Report Released Date/Time: Jul 07, 2024 04:49 PM Reporting Lab: [facility] [address] Performing Lab: [facility] [address] PHOSPHORUS 2.6 mg/dL 2.3-4.3 Jul 08, 2024 09:54 AM [facility] BASIC METABOLIC PANEL+MG Specimen Type: PLASMA Comment: Specimen received in Lab at: 0952 Ordering Provider: JUANCARLOS ECHOLS Report Released Date/Time: Jul 07, 2024 04:49 PM Reporting Lab: [facility] [address] Performing Lab: [facility] [address] CREATININE 0.9 mg/dL 0.7-1.2 UREA NITROGEN 26 mg/dL 8-26 GLUCOSE 128 mg/dL H 70-100 SODIUM 134 mmol/L L 136-145 POTASSIUM 3.4 mmol/L L 3.5-5.1 CHLORIDE 100 mmol/L 98-107 CO2 24 mmol/L 22-29 CALCIUM 9.8 mg/dL 8.4-10.2 MAGNESIUM 1.8 mg/dL 1.6-2.6 ANION GAP 10 mmol/L 5-15 .CREAT EGFR(CKD-EPI) >90 >60 Jul 07, 2024 02:00 PM [facility] C DIFF PANEL Specimen Type: FECES No comment entered. Ordering Provider: JEVON ZAZUETA Report Released Date/Time: Jul 07, 2024 12:26 PM Reporting Lab: [facility] [address] Performing Lab: [facility] [address] C DIFF TOX B GENE PCR NEGATIVE Negative Jul 07, 2024 07:41 AM [facility] PHOSPHORUS Specimen Type: PLASMA No comment entered. Ordering Provider: JEVON ZAZUETA Report Released Date/Time: Jul 06, 2024 03:44 PM Reporting Lab: [facility] [address] Performing Lab: [facility] [address] PHOSPHORUS 3.1 mg/dL 2.3-4.3 Jul 07, 2024 07:41 AM [facility] BASIC METABOLIC PANEL+MG Specimen Type: PLASMA No comment entered. Ordering Provider: JEVON ZAZUETA Report Released Date/Time: Jul 06, 2024 03:44 PM Reporting Lab: [facility] [address] Performing Lab: [facility] [address] CREATININE 0.9 mg/dL 0.7-1.2 UREA NITROGEN 20 mg/dL 8-26 GLUCOSE 157 mg/dL H 70-100 SODIUM 136 mmol/L 136-145 POTASSIUM 3.7 mmol/L 3.5-5.1 CHLORIDE 102 mmol/L 98-107 CO2 21 mmol/L L 22-29 CALCIUM 9.8 mg/dL 8.4-10.2 MAGNESIUM 1.9 mg/dL 1.6-2.6 ANION GAP 13 mmol/L 5-15 .CREAT EGFR(CKD-EPI) >90 >60 Jul 07, 2024 07:40 AM [facility] CBC Specimen Type: BLOOD No comment entered. Ordering Provider: JEVON ZAZUETA Report Released Date/Time: Jul 06, 2024 03:44 PM Reporting Lab: [facility] [address] Performing Lab: [facility] [address] WBC 21.2 H 4.0-11.0 RBC 5.09 4.60-6.20 HGB 15.9 g/dL 13.5-17.9 HCT 48.3 41.0-54.0 MCV 94.9 fL 80.0-100.0 MCH 31.2 pg 27.0-33.0 MCHC 32.9 g/dL 32.0-37.5 PLT 500 H 150-400 MPV 10.3 fL 9.1-13.0 RDW 13.6 11.5-14.5 Jul 06, 2024 07:21 AM [facility] CBC Specimen Type: BLOOD No comment entered. Ordering Provider: JEVON ZAZUETA Report Released Date/Time: Jul 05, 2024 01:22 PM Reporting Lab: [facility] [address] Performing Lab: [facility] [address] WBC 18.0 H 4.0-11.0 RBC 4.83 4.60-6.20 HGB 14.6 g/dL 13.5-17.9 HCT 45.5 41.0-54.0 MCV 94.2 fL 80.0-100.0 MCH 30.2 pg 27.0-33.0 MCHC 32.1 g/dL 32.0-37.5 PLT 368 150-400 MPV 10.4 fL 9.1-13.0 RDW 13.6 11.5-14.5 Jul 06, 2024 07:21 AM [facility] PHOSPHORUS Specimen Type: PLASMA No comment entered. Ordering Provider: JEVON ZAZUETA Report Released Date/Time: Jul 05, 2024 01:22 PM Reporting Lab: [facility] [address] Performing Lab: [facility] [address] PHOSPHORUS 3.6 mg/dL 2.3-4.3 Jul 06, 2024 07:21 AM [facility] BASIC METABOLIC PANEL+MG Specimen Type: PLASMA No comment entered. Ordering Provider: JEVON ZAZUETA Report Released Date/Time: Jul 05, 2024 01:22 PM Reporting Lab: [facility] [address] Performing Lab: [facility] [address] CREATININE 0.7 mg/dL 0.7-1.2 UREA NITROGEN 12 mg/dL 8-26 GLUCOSE 108 mg/dL H 70-100 SODIUM 138 mmol/L 136-145 POTASSIUM 3.4 mmol/L L 3.5-5.1 CHLORIDE 104 mmol/L 98-107 CO2 20 mmol/L L 22-29 CALCIUM 9.3 mg/dL 8.4-10.2 MAGNESIUM 1.9 mg/dL 1.6-2.6 ANION GAP 14 mmol/L 5-15 .CREAT EGFR(CKD-EPI) >90 >60 Jul 05, 2024 07:17 AM [facility] MAGNESIUM Specimen Type: PLASMA No comment entered. Ordering Provider: JUANCARLOS ECHOLS S Report Released Date/Time: Jul 04, 2024 09:39 AM Reporting Lab: [facility] [address] Performing Lab: [facility] [address] MAGNESIUM 2.0 mg/dL 1.6-2.6 Jul 05, 2024 07:17 AM [facility] PHOSPHORUS Specimen Type: PLASMA No comment entered. Ordering Provider: JUANCARLOS ECHOLS S Report Released Date/Time: Jul 04, 2024 09:39 AM Reporting Lab: [facility] [address] Performing Lab: [facility] [address] PHOSPHORUS 2.0 mg/dL L 2.3-4.3 Jul 05, 2024 07:17 AM [facility] BASIC METABOLIC PANEL+MG Specimen Type: PLASMA No comment entered. Ordering Provider: JUANCARLOS ECHOLS S Report Released Date/Time: Jul 04, 2024 09:39 AM Reporting Lab: [facility] [address] Performing Lab: [facility] [address] CREATININE 0.7 mg/dL 0.7-1.2 UREA NITROGEN 12 mg/dL 8-26 GLUCOSE 84 mg/dL 70-100 SODIUM 135 mmol/L L 136-145 POTASSIUM 3.8 mmol/L 3.5-5.1 CHLORIDE 104 mmol/L 98-107 CO2 24 mmol/L 22-29 CALCIUM 9.3 mg/dL 8.4-10.2 MAGNESIUM 2.0 mg/dL 1.6-2.6 ANION GAP 7 mmol/L 5-15 .CREAT EGFR(CKD-EPI) >90 >60 Jul 05, 2024 07:16 AM [facility] CBC Specimen Type: BLOOD No comment entered. Ordering Provider: JUANCARLOS ECHOLS S Report Released Date/Time: Jul 04, 2024 09:39 AM Reporting Lab: [facility] [address] Performing Lab: [facility] [address] WBC 18.3 H 4.0-11.0 RBC 4.49 L 4.60-6.20 HGB 14.1 g/dL 13.5-17.9 HCT 43.4 41.0-54.0 MCV 96.7 fL 80.0-100.0 MCH 31.4 pg 27.0-33.0 MCHC 32.5 g/dL 32.0-37.5 PLT 317 150-400 MPV 10.0 fL 9.1-13.0 RDW 13.9 11.5-14.5 Jul 04, 2024 07:17 AM [facility] BASIC METABOLIC PANEL+MG Specimen Type: PLASMA No comment entered. Ordering Provider: GABINO CAMERON Report Released Date/Time: Jul 03, 2024 06:31 PM Reporting Lab: [facility] [address] Performing Lab: [facility] [address] CREATININE 0.7 mg/dL 0.7-1.2 UREA NITROGEN 16 mg/dL 8-26 GLUCOSE 129 mg/dL H 70-100 SODIUM 137 mmol/L 136-145 POTASSIUM 3.7 mmol/L 3.5-5.1 CHLORIDE 107 mmol/L 98-107 CO2 22 mmol/L 22-29 CALCIUM 9.0 mg/dL 8.4-10.2 MAGNESIUM 1.9 mg/dL 1.6-2.6 ANION GAP 8 mmol/L 5-15 .CREAT EGFR(CKD-EPI) >90 >60 Jul 04, 2024 07:17 AM [facility] PHOSPHORUS Specimen Type: PLASMA No comment entered. Ordering Provider: GABINO CAMERON Report Released Date/Time: Jul 03, 2024 06:31 PM Reporting Lab: [facility] [address] Performing Lab: [facility] [address] PHOSPHORUS 2.8 mg/dL 2.3-4.3 Jul 04, 2024 07:16 AM [facility] CBC Specimen Type: BLOOD No comment entered. Ordering Provider: GABINO CAMERON Report Released Date/Time: Jul 03, 2024 06:31 PM Reporting Lab: [facility] [address] Performing Lab: [facility] [address] WBC 20.6 H 4.0-11.0 RBC 4.63 4.60-6.20 HGB 14.2 g/dL 13.5-17.9 HCT 43.4 41.0-54.0 MCV 93.7 fL 80.0-100.0 MCH 30.7 pg 27.0-33.0 MCHC 32.7 g/dL 32.0-37.5 PLT 329 150-400 MPV 10.4 fL 9.1-13.0 RDW 13.8 11.5-14.5 Jul 04, 2024 07:16 AM [facility] CBC & DIFF Specimen Type: BLOOD Comment: Manual Differential Performed Ordering Provider: GABINO CAMERON Report Released Date/Time: Jul 03, 2024 06:31 PM Reporting Lab: [facility] [address] Performing Lab: [facility] [address] WBC 20.6 H 4.0-11.0 RBC 4.63 4.60-6.20 [...] MORPHOLOGY PRESENT Jul 04, 2024 07:15 AM [facility] BNP Specimen Type: PLASMA No comment entered. Ordering Provider: GABINO CAMERON Report Released Date/Time: Jul 03, 2024 06:31 PM Reporting Lab: [facility] [address] Performing Lab: [facility] [address] BNP 292 pg/mL H <99 Jul 03, 2024 10:32 PM [facility] FINGERSTICK GLUCOSE Specimen Type: BLOOD Comment: Save Result Nurse Notified Ordering Provider: KATELYNN PERSON Report Released Date/Time: Jul 03, 2024 10:50 PM Reporting Lab: [facility] [address] Performing Lab: [facility] [address] FINGERSTICK GLUCOSE 126 mg/dL H 70-100 Jul 03, 2024 05:33 PM [facility] FINGERSTICK GLUCOSE Specimen Type: BLOOD Comment: Save Result Nurse Notified Ordering Provider: KATELYNN PERSON Report Released Date/Time: Jul 03, 2024 05:46 PM Reporting Lab: [facility] [address] Performing Lab: [facility] [address] FINGERSTICK GLUCOSE 141 mg/dL H 70-100 Jul 03, 2024 02:31 PM [facility] POC ABG/ELECTROLYTES Specimen Type: ARTERIAL BLOOD Comment: FIO2 = 97% Patient Temp: 36.0 C Sample Type = ARTERIAL Ordering Provider: MAZIN ARREDONDO Report Released Date/Time: Jul 03, 2024 01:48 PM Reporting Lab: [facility] [address] Performing Lab: [facility] [address] POC PH 7.387 7.35-7.45 POC PCO2 34.4 [...] H 80.0-105.0 Jul 03, 2024 01:05 PM [facility] POC ABG/ELECTROLYTES Specimen Type: ARTERIAL BLOOD Comment: FIO2 = 53% Patient Temp: 36.2 C Sample Type = ARTERIAL Ordering Provider: MAZIN ARREDONDO Report Released Date/Time: Jul 03, 2024 01:48 PM Reporting Lab: [facility] [address] Performing Lab: [facility] [address] POC PH 7.280 L 7.35-7.45 POC PCO2 [...] mm[Hg] 80.0-105.0 Jul 03, 2024 06:15 AM [facility] URINALYSIS Specimen Type: URINE No comment entered. Ordering Provider: MARYBETH POWELL Report Released Date/Time: Jun 12, 2024 04:01 PM Reporting Lab: [facility] [address] Performing Lab: [facility] [address] URINE COLOR YELLOW SPECIFIC GRAVITY 1.031 1.003-1.03 [...] 250 NEGATIVE Jul 03, 2024 06:13 AM [facility] CBC Specimen Type: BLOOD No comment entered. Ordering Provider: MARYBETH POWELL Report Released Date/Time: Jun 12, 2024 03:59 PM Reporting Lab: [facility] [address] Performing Lab: [facility] [address] WBC 15.8 H 4.0-11.0 RBC 5.11 4.60-6.20 HGB 16.1 g/dL 13.5-17.9 HCT 49.1 41.0-54.0 MCV 96.1 fL 80.0-100.0 MCH 31.5 pg 27.0-33.0 MCHC 32.8 g/dL 32.0-37.5 PLT 357 150-400 MPV 9.8 fL 9.1-13.0 RDW 13.7 11.5-14.5 Jun 24, 2024 09:50 AM [facility] BASIC METABOLIC PANEL+MG Specimen Type: PLASMA Comment: Specimen received in Lab at: [id number] Ordering Provider: JEVON ZAZUETA Report Released Date/Time: Jun 23, 2024 06:07 PM Reporting Lab: [facility] [address] Performing Lab: [facility] [address] CREATININE 0.8 mg/dL 0.7-1.2 UREA NITROGEN 13 mg/dL 8-26 GLUCOSE 135 mg/dL H 70-100 SODIUM 135 mmol/L L 136-145 POTASSIUM 3.6 mmol/L 3.5-5.1 CHLORIDE 103 mmol/L 98-107 CO2 24 mmol/L 22-29 CALCIUM 9.2 mg/dL 8.4-10.2 MAGNESIUM 1.9 mg/dL 1.6-2.6 ANION GAP 8 mmol/L 5-15 .CREAT EGFR(CKD-EPI) >90 >60 Jun 24, 2024 09:50 AM [facility] CBC Specimen Type: BLOOD Comment: Specimen received in Lab at: 0948 Ordering Provider: JEVON ZAZUETA Report Released Date/Time: Jun 23, 2024 06:07 PM Reporting Lab: [facility] [address] Performing Lab: [facility] [address] WBC 15.5 H 4.0-11.0 RBC 4.93 4.60-6.20 HGB 15.2 g/dL 13.5-17.9 HCT 46.5 41.0-54.0 MCV 94.3 fL 80.0-100.0 MCH 30.8 pg 27.0-33.0 MCHC 32.7 g/dL 32.0-37.5 PLT 223 150-400 MPV 11.4 fL 9.1-13.0 RDW 13.9 11.5-14.5 Jun 23, 2024 07:52 AM [facility] COMPREHENSIVE METABOLIC PANEL+MG Specimen Type: PLASMA No comment entered. Ordering Provider: JEVON ZAZUETA Report Released Date/Time: Jun 22, 2024 05:51 PM Reporting Lab: [facility] [address] Performing Lab: [facility] [address] CREATININE 0.7 mg/dL 0.7-1.2 UREA NITROGEN 16 [...] >90 >60 Jun 23, 2024 07:52 AM [facility] CBC & DIFF Specimen Type: BLOOD Comment: Automated Differential Performed Ordering Provider: JEVON ZAZUETA Report Released Date/Time: Jun 22, 2024 05:51 PM Reporting Lab: [facility] [address] Performing Lab: [facility] [address] WBC 14.9 H 4.0-11.0 RBC 5.09 4.60-6.20 [...] 0.1 0.0-0.1 Jun 22, 2024 06:10 PM [facility] CBC Specimen Type: BLOOD No comment entered. Ordering Provider: JEVON ZAZUETA Report Released Date/Time: Jun 22, 2024 05:51 PM Reporting Lab: [facility] [address] Performing Lab: [facility] [address] WBC 16.9 H 4.0-11.0 RBC 5.28 4.60-6.20 HGB 16.9 g/dL 13.5-17.9 HCT 50.4 41.0-54.0 MCV 95.5 fL 80.0-100.0 MCH 32.0 pg 27.0-33.0 MCHC 33.5 g/dL 32.0-37.5 PLT 223 150-400 MPV 10.9 fL 9.1-13.0 RDW 14.0 11.5-14.5 Jun 22, 2024 06:10 PM [facility] COMPREHENSIVE METABOLIC PANEL+MG Specimen Type: PLASMA No comment entered. Ordering Provider: JEVON ZAZUETA Report Released Date/Time: Jun 22, 2024 05:51 PM Reporting Lab: [facility] [address] Performing Lab: [facility] [address] CREATININE 0.7 mg/dL 0.7-1.2 UREA NITROGEN 17 [...] >90 >60 Jun 21, 2024 06:48 PM [facility] URINALYSIS Specimen Type: URINE No comment entered. Ordering Provider: DELIA MARTINEZ Report Released Date/Time: Jun 21, 2024 05:45 PM Reporting Lab: [facility] [address] Performing Lab: [facility] [address] URINE COLOR YELLOW SPECIFIC GRAVITY 1.041 H [...] 500 NEGATIVE Jun 21, 2024 05:34 PM [facility] POC CREATININE Specimen Type: BLOOD No comment entered. Ordering Provider: DELIA MARTINEZ Report Released Date/Time: Jun 21, 2024 06:07 PM Reporting Lab: [facility] [address] Performing Lab: [facility] [address] POC CREATININE 1.1 mg/dL 0.6-1.3 Jun 21, 2024 05:30 PM [facility] POC ABG/LACTATE Specimen Type: VENOUS BLOOD No comment entered. Ordering Provider: DELIA MARTINEZ Report Released Date/Time: Jun 21, 2024 06:07 PM Reporting Lab: [facility] [address] Performing Lab: [facility] [address] POC PH 7.470 H 7.31-7.41 POC PCO2 31.2 mm[Hg] L 41.00-51 .0 0 POC PO2 46 mm[Hg] H 35.0-40.0 POC TCO2 24 mmol/L 24.0-29.0 POC HCO3 22.7 mmol/L L 23.0-28.0 POC BE ECT -1 mmol/L POC SO2 85 H 70-75 POC LACTATE 1.85 mmol/L 0.90-1.70 Jun 21, 2024 05:24 PM [facility] PROTHROMBIN TIME/INR Specimen Type: PLASMA No comment entered. Ordering Provider: DELIA MARTINEZ Report Released Date/Time: Jun 21, 2024 05:30 PM Reporting Lab: [facility] [address] Performing Lab: [facility] [address] .INR 1.2 H 0.8-1.1 .PT 13.9 s H 9.4-12.5 Jun 21, 2024 05:24 PM [facility] LIPASE Specimen Type: PLASMA No comment entered. Ordering Provider: DELIA MARTINEZ Report Released Date/Time: Jun 21, 2024 05:30 PM Reporting Lab: [facility] [address] Performing Lab: [facility] [address] LIPASE 32 U/L <60 Jun 21, 2024 05:24 PM [facility] EXTRA GOLD GEL TUBE Specimen Type: SERUM No comment entered. Ordering Provider: DELIA MARTINEZ Report Released Date/Time: Jun 21, 2024 05:41 PM Reporting Lab: [facility] [address] Performing Lab: [facility] [address] EXTRA GOLD GEL TUBE RECEIVED Jun 21, 2024 05:24 PM [facility] COMPREHENSIVE METABOLIC PANEL+MG Specimen Type: PLASMA No comment entered. Ordering Provider: DELIA MARTINEZ Report Released Date/Time: Jun 21, 2024 05:30 PM Reporting Lab: [facility] [address] Performing Lab: [facility] [address] CREATININE 0.9 mg/dL 0.7-1.2 UREA NITROGEN 29 [...] mg/dL <0.5 Jun 21, 2024 05:24 PM [facility] CBC & DIFF Specimen Type: BLOOD Comment: Manual Differential Performed Ordering Provider: DELIA MARTINEZ Report Released Date/Time: Jun 21, 2024 05:30 PM Reporting Lab: [facility] [address] Performing Lab: [facility] [address] WBC 21.3 H 4.0-11.0 RBC 5.48 4.60-6.20 [...] Source Jul 18, 2024 11:21 PM [facility] Social History: Smoking Status (Most current) and Tobacco Use (All prior to encounter date) This section includes the most current, and the historical, smoking and tobacco- related health factors from the [place] facility where the Encounter took place. Current Smoking Status This section includes the most current smoking, or tobacco-related health factor, from the [facility] where the Encounter took place. Date/Time Current Smoking Status Comment Facil ity May 15, 2024 08:30 AM VA-TOBACCO FORMER USER [facility] Tobacco Use History This section includes a history of the smoking, or tobacco-related health factors, that were collected on or before the date of the Encounter. The data comes from the [place] facility where the Encounter took place. Date/Time Smoking Status/Tobacco Use Comment F acility May 15, 2024 08:30 AM VA-TOBACCO QUIT 15 YRS OR MORE [facility] May 06, 2023 11:30 AM VA-TOBACCO FORMER USER [facility] May 06, 2023 11:30 AM VA-TOBACCO QUIT 15 YRS OR MORE [facility] Jun 04, 2022 09:00 AM VA-TOBACCO FORMER USER [facility] Jun 04, 2022 09:00 AM VA-TOBACCO QUIT 15 YRS OR MORE [facility] Jul 10, 2021 08:00 AM VA-TOBACCO FORMER USER [facility] Jul 10, 2021 08:00 AM VA-TOBACCO QUIT 5 TO < 15 YRS [facility] May 23, 2020 08:30 AM VA-TOBACCO FORMER USER [facility] May 23, 2020 08:30 AM VA-TOBACCO QUIT 5 TO < 15 YRS [facility] Mar 20, 2019 04:03 PM VA-TOBACCO FORMER USER [facility] Mar 20, 2019 04:03 PM VA-TOBACCO QUIT 5 TO < 15 YRS [facility] Mar 21, 2018 08:13 AM FORMER TOBACCO USER 7Y OR GREATE R [facility] Feb 24, 2017 09:24 AM FORMER TOBACCO USER 7Y OR GREATE R [facility] January 07, 2016 08:01 AM FORMER TOBACCO USE >1Y <7Y [facility] Feb 03, 2015 07:58 AM FORMER TOBACCO USE <1Y [facility] Feb 26, 2014 08:41 AM CURRENT TOBACCO USER [facility] May 13, 2011 01:45 PM CURRENT TOBACCO USER [facility] Advance Directives: All historical and current Section Date Range: From patient's date of to the date document was created. This section includes ALL of a patient's completed or amended [place] Advance and Rescinded Directives. The entries below indicate that a directive exists for the patient, but an actual copy is not included with this document. The data comes from all [place] facilities. Date Advance Directives Provider Source Mar [...] 06:15 PM CHEST 1 VIEW: FLACA WEAVER [id number] -1950 M Exm Date: JUL 18, 2024@18:15 Req Phys: LEISA GOLDEN Loc: 3E07-18-2024@19:00 Img Loc: MAIN X-RAY Service: [place] [address] (Case [id number] COMPLETE) CHEST 1 VIEW (RAD Detailed) CPT:45328 Proc Modifiers : PORTABLE EXAM Reason for Study: SOB Clinical History: IS NOT under investigation for COVID-19 or is COVID-19 negative 73 yo with SOB Responsible provider name and phone number to notify for critical findings if other than user placing the order and pager listed below: User placing orders pager: [phone] LAST CREATININE 1.2 (07/17/24) Report Status: Verified Date Reported: JUL 18, 2024 Date Verified: JUL 18, 2024 Hatch Tender E-Sig:/ES/CARLOS A CUNNINGHAM DO Report: EXAMINATION: CHEST 1 VIEW Reason for Study: SOB IS NOT under investigation for COVID-19 or is COVID-19 negative 73 yo with SOB Responsible provider name and phone number to notify for critical findings if other than user placing the order and pager listed below: User placing orders pager: [phone] LAST CREATININE 1.2 (07/17/24) SOB TECHNIQUE: Single [...] Interpreting Staff: CARLOS A CUNNINGHAM DO, RADIOLOGIST (Hatch Tender) /CARLOS A ROWELL [facility] Jul 16, 2024 07:[address] [facility] [address] ABDOMEN/PELVIS: FLACA WEAVER [id number] -1950 M Exm Date: JUL 16, 2024@07:49 Req Phys: JATINDER CABRERA Loc: 07-17-2024@09:02 Img Loc: OUTSOURCE CT Service: Unknown (Case [id number] COMPLETE) NON [place] CT ABDOMEN/PELVIS (CT Detailed) CPT:94423 Reason for Study: outside study Clinical History: [...] Diagnostic Code: VERIFIED BY: / *ELECTRONICALLY FILED* [facility] Jul 13, 2024 09:[address] [facility] [address] ABDOMEN/PELVIS: FLACA WEAVER [id number] -1950 M Exm Date: JUL 13, 2024@09:41 Req Phys: JATINDER CABRERA Loc: 07-17-2024@09:08 Img Loc: OUTSOURCE CT Service: Unknown (Case [id number] COMPLETE) NON [place] CT ABDOMEN/PELVIS (CT Detailed) CPT:14569 Reason for Study: outside study Clinical History: [...] Diagnostic Code: VERIFIED BY: / *ELECTRONICALLY FILED* [facility] Jul 08, 2024 10:09 AM CHEST 2 VIEWS PA AND LAT: FLACA WEAVER [id number] -1950 M Exm Date: JUL 08, 2024@10:09 Req Phys: KATELYNN PERSON Pat Loc: 2KG/07-08-2024@11:49 Img Loc: MAIN X-RAY Service: [place] [address] (Case [id number] COMPLETE) CHEST 2 VIEWS PA AND LAT (RAD Detailed) CPT:71987 Reason for Study: Uptrending WBC, POD 5 Clinical History: [place] IS NOT under investigation for COVID-19 or is COVID-19 negative POD 5, work up for uptrending wbc Responsible provider name and phone number to notify for critical findings if other than user placing the order and pager listed below: User placing orders pager: Katelynn Person LAST CREATININE 0.9 (07/07/24) Report Status: Verified Date Reported: JUL 08, 2024 Date Verified: JUL 08, 2024 Hatch Tender E-Sig: Report: CHEST 2 VIEWS PA AND [...] cardiopulmonary disease. READING PHYSICIAN: Sarbjit Vaughn M.D. -[phone] 07/08/2024 12:46 EST [facility] National Teleradiology Program [phone] (For Medical Practitioner Use Only) Attention Patients / Veterans: If you have questions or concerns about these test results, please contact your ordering provider or primary care team. Primary Interpreting Staff: RADIOLOGY,OUTSIDE SERVICE, Staff Physician / RADIOLOGY,OUTSIDE SERVICE [facility] Jul 08, 2024 10:[address] (AP) ABDOMEN/PELVIS W CONTRAST: FLACA WEAVER [id number] -1950 M Exm Date: JUL 08, 2024@10:00 Req Phys: KATELYNN PERSON Pat Loc: 2K/07-08-2024@12:07 Img Loc: CT IMAGING Service: [place] [address] (Case [id number] COMPLETE) CT (AP) ABDOMEN/PELVIS W CONTRAST(CT Detailed) CPT:28993 Contrast Media : Non-ionic Iodinated Reason for [...] PLASMA .CREAT EGFR(CKD-E >90 Ref: >=60 Allergies: ([place] only) TERAZOSIN (Mar 13, 2015) Report Status: Verified Date Reported: JUL 08, 2024 Date Verified: JUL 08, 2024 Hatch Tender E-Sig: Report: CT (AP) ABDOMEN/PELVIS W CONTRAST [...] as noted above READING PHYSICIAN: Celestino Blanc -[phone] 07/08/2024 13:04 EST [facility] Hiveooradiology Program [phone] (For Medical Practitioner Use Only) Attention Patients / Veterans: If you have questions or concerns about these test results, please contact your ordering provider or primary care team. Primary Interpreting Staff: RADIOLOGY,OUTSIDE SERVICE, Staff Physician / RADIOLOGY,OUTSIDE SERVICE [facility] Jun 22, 2024 11:49 AM ABSCESS DRAIN PLACEMENT PERITONEAL (P): FLACA WEAVER [id number] -1950 M Exm Date: JUN 22, 2024@11:49 Req Phys: ANGELA HOLDEN Loc: [facility]/06-22-2024@17:14 Img Loc: INTERVENTIONAL RADIOLOGY Service: [place] [address] (Case [id number] COMPLETE) IR PERITONEAL/RETROPERITONEAL PER(ANI Detailed) CPT:41244 Reason for Study: diverticulitis with abscess (Case 3570 COMPLETE) IR MOD SEDATION 10-22 MIN (ANI Detailed) CPT:03960 Clinical History: IS NOT under investigation for COVID-19 or is COVID-19 negative 73 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 please place abscess drain. Contact number for responsible provider who can be reached for any questions or notifications of critical findings: [phone] n/a LAST CREATININE 0.9 (06/21/24) Report Status: Verified Date Reported: JUN 22, 2024 Date Verified: JUN 22, 2024 Hatch Tender E-Sig:/ES/LISA PENDLETON MD Report: PROCEDURES: Placement of [...] Primary Interpreting Staff: LISA PENDLETON MD, RADIOLOGIST (Hatch Tender) /JRT LISA PENDLETON [facility] Jun 22, 2024 11:[address] NEEDLE PLACEMENT (P): FLACA WEAVER [id number] -1950 M Exm Date: JUN 22, 2024@11:48 Req Phys: ANGELA HOLDEN [facility] Loc: [facility]/06-22-2024@17:14 Img Loc: CT IMAGING Service: [place] [address] (Case [id number] COMPLETE) CT SCAN FOR NEEDLE PLACEMENT (CT Detailed) CPT:05334 Reason for Study: l pelvic abscess drain Clinical History: Report Status: Verified Date Reported: JUN 22, 2024 Date Verified: JUN 22, 2024 Hatch Tender E-Sig:/ES/LISA PENDLETON MD Report: PROCEDURES: Placement of [...] Using real-time CT fluoroscopy, a 5 [place] Pathogenetixesis catheter was advanced into the collection in [...] Primary Interpreting Staff: LISA PENDLETON MD, RADIOLOGIST (Hatch Tender) /JRT LISA PENDLETON [facility] Jun 21, 2024 06:[address] (AP) ABDOMEN/PELVIS (P): FLACA WEAVER [id number] -1950 M Exm Date: JUN 21, 2024@18:09 Req Phys: DELIA MARTINEZ Loc: [email or web address] EMERGENCY DEPT WALK-IN (Re Img Loc: CT IMAGING Service: [place] [address] (Case [id number] COMPLETE) CT (AP) ABDOMEN/PELVIS W CONTRAST(CT Detailed) CPT:74656 Contrast Media : Non-ionic Iodinated Reason for [...] PLASMA .CREAT EGFR(CKD-E >90 Ref: >=60 Allergies: ([facility]) TERAZOSIN (Mar 13, 2015) Defer to [...] 21, 2024 Date Verified: JUN 21, 2024 Hatch Tender E-Sig:/ALEXI/CARLOS A CUNNINGHAM DO Report: EXAMINATION: CT [...] Interpreting Staff: CARLOS A CUNNINGHAM DO, RADIOLOGIST (Hatch Tender) /CARLOS A ROWELL [facility] Pathology Reports: +/- 30 [...] PM LR MICROBIOLOGY RE PORT: Reporting Lab: [facility] [CLIA# [id number]] [place] [address] Accession [UID]: [id number] [[id number]] Received: Jul 16, 2024@14:41 Collection sample: BLOOD Collection date: Jul 16, 2024 14:07 Provider: LEISA GOLDEN Comment on specimen: R AC, RECEIVED 2 BLOOD CULTURE BOTTLES Test(s) ordered: CULTURE & SUSCEPTIBILITY...... completed: Jul 22, 2024 * BACTERIOLOGY FINAL REPORT => Jul 22, 2024 13:39 TECH CODE: [id number] CULTURE RESULTS: NO GROWTH 5 DAYS Bacteriology Remark(s): THIS REPORT IS FINAL =--=--=--=--=--=--=--=--=--= --=--=--=--=--=--=--=--=--=- -=--=--=--=--=--=--=-- Performing Laboratory: Bacteriology Report Performed By: [facility] [CLIA# [id number]] [place] [address] [facility] Jul 16, 2024 01:54 PM LR MICROBIOLOGY RE PORT: Reporting Lab: [facility] [CLIA# [id number]] [place] [address] Accession [UID]: [id number] [[id number]] Received: Jul 16, 2024@14:41 Collection sample: BLOOD Collection date: Jul 16, 2024 13:54 Provider: LEISA GOLDEN Comment on specimen: L AC, RECEIVED 2 BLOOD CULTURE BOTTLES Test(s) ordered: CULTURE & SUSCEPTIBILITY...... completed: Jul 22, 2024 * BACTERIOLOGY FINAL REPORT => Jul 22, 2024 13:39 TECH CODE: [id number] CULTURE RESULTS: NO GROWTH 5 DAYS Bacteriology Remark(s): THIS REPORT IS FINAL =--=--=--=--=--=--=--=--=--= --=--=--=--=--=--=--=--=--=- -=--=--=--=--=--=--=-- Performing Laboratory: Bacteriology Report Performed By: [facility] [CLIA# [id number]] [place] [address] [facility] Jul 03, 2024 05:59 AM LR SURGICAL PATHOL OGY REPORT: LOCAL TITLE: LR SURGICAL PATHOLOGY REPORT STANDARD TITLE: PATHOLOGY REPORT DATE OF NOTE: JUL 06, 2024@10:40:48 ENTRY DATE: JUL 06, 2024@10:40:48 AUTHOR: EDUARDO PALOMARES EXP COSIGNER: URGENCY: STATUS: COMPLETED $APHDR Reporting Lab: [facility] [CLIA# [id number]] [place] [address] - - - - - - - [...] - - - PATHOLOGY REPORT Accession No. [id number] - - - - - - - [...] - PATHOLOGY REPORT Accession No. [id number] - - - - - - - [...] Second circumferential surgical margin, en face; E-F: Accordion Repairer diverticula; G: Accordion Repairer section of mesentery; H: Random credit resolution [...] One colonic tissue ring, bisected transversely. [facility]. [facility]: Microscopic examination performed. DIAGNOSIS: 1. Colon, sigmoid, sigmoidectomy-- - Diverticulosis with perforation and focal abscess formation 2. Colon, anastomotic rings, excision-- - Viable colonic mucosa without diagnostic abnormality /es/ EDUARDO PALOMARES MD STAFF PATHOLOGIST Signed Jul 06, 2024@10:40 Performing Laboratory: Surgical Pathology Report Performed By: [facility] [CLIA# [id number]] [place] [address] $FTR - - - - - - [...] - - FLACA WEAVER STANDARD FORM 515 ID:[id number] SEX:M :1950 AGE: 73 LOC:96938 ADM:Jun DX:DIVERTICULITIS PCP: Jatinder Cabrera /alexi/ EDUARDO PALOMARES MD STAFF PATHOLOGIST Signed: 07/06/2024 10:40 EDUARDO PALOMARES [facility] Jun 22, 2024 01:15 PM LR MICROBIOLOGY RE PORT: Reporting Lab: [facility] [CLIA# [id number]] [place] [address] Accession [UID]: [id number] [[id number]] Received: Jun 22, 2024@13:38 Collection sample: FLUID Collection date: Jun 22, 2024 13:15 Provider: ANGELA HOLDEN Comment on specimen: LLQ ABSCESS, RECEIVED IN ANAEROBIC TRANSPORT VIAL Test(s) ordered: GRAM STAIN.................... completed: Jun 22, 2024 15:03 CULTURE & SUSCEPTIBILITY...... completed: Jun 25, 2024 * BACTERIOLOGY FINAL REPORT => Jun 25, 2024 10:56 TECH CODE: [id number] GRAM STAIN: DIRECT SMEAR of specimen before [...] -=--=--=--=--=--=--=-- Performing Laboratory: Bacteriology Report Performed By: [facility] [CLIA# [id number]] [place] [address] [facility] Jun 22, 2024 01:15 PM LR MICROBIOLOGY RE PORT: Reporting Lab: [facility] [CLIA# [id number]] [place] [id number] Accession [UID]: [id number] [[id number]] Received: Jun 22, 2024@13:38 Collection sample: FLUID Collection date: Jun 22, 2024 13:15 Provider: ANGELA HOLDEN Comment on specimen: LLQ ABSCESS, RECEIVED IN ANAEROBIC TRANSPORT VIAL Test(s) ordered: ANAEROBIC CULTURE............. completed: Jun 28, 2024 * BACTERIOLOGY FINAL REPORT => Jun 28, 2024 10:08 TECH CODE: [id number] CULTURE RESULTS: HEAVY GROWTH MIXED ANAEROBES Comment: including the followin+ Bacteroides fragilis 4+ Bacteroides vulgatus 4+ Clostridium innocuum Beta-lactamase negative 4+ Bacteroides caccae 4+ Parvimonas micra 4+ Bacteroides uniformis 4+ Gemella morbillorum 4+ anaerobic small, Gram Positive Rods 4+ Bacteroides thetaiotaomicron Standard workup is now complete. Bacteriology Remark(s): THIS REPORT IS FINAL =--=--=--=--=--=--=--=--=--= --=--=--=--=--=--=--=--=--=- -=--=--=--=--=--=--=-- Performing Laboratory: Bacteriology Report Performed By: [facility] [CLIA# [id number]] [place] [address] [facility] Jun 21, 2024 06:12 PM LR MICROBIOLOGY RE PORT: Reporting Lab: [facility] [IA# [id number]] [place] [address] Accession [UID]: [id number] [[id number]] Received: Jun 21, 2024@18:12 Collection sample: BLOOD [...] -=--=--=--=--=--=--=-- Performing Laboratory: Bacteriology Report Performed By: [facility] [CLIA# [id number]] [place] [address] [facility] Jun 21, 2024 06:11 PM LR MICROBIOLOGY RE PORT: Reporting Lab: [facility] [CLIA# [id number]] [place] [address] Accession [UID]: [id number] [[id number]] Received: Jun 21, 2024@18:11 Collection sample: BLOOD [...] -=--=--=--=--=--=--=-- Performing Laboratory: Bacteriology Report Performed By: [facility] [CLIA# [id number]] [place] [address] [facility]
--- OUTSIDE RECORDS SUMMARY | 2024-08-01 08:00 | XMS_ITS ---
[place] DAILY HOSPITALIZATION DATA [facility] Encounter Summary Created on: August 01, 2024 MEG FLACADARCI LOBO : 1950 Sex: Male Author Name [facility] [place] [facility] [place] Address [address] [place] [address] Care Team Providers Care Editor Continuity And Script Name Role Phone JATINDER CABRERA Primary Care [...] PART A Sep 29, 2016 PART A [id number] [phone] JUDY WEAVER PATIENT Selected Encounter This section includes the information on record at [place] for the Encounter. Date/Time Encounter Type Encounter Description Reason Pro vider Source Jul 18, 2024 07:04 PM Inpatient Visit DAILY HOSPITALIZATION DATA IHE [...] Chemi stry Order URINALYSIS URINE WC ONCE [facility] Jun 12, 2024 12:00 AM Laboratory - Chemi stry Order BNP PLASMA SP ONCE [facility] Jun 21, 2024 05:45 PM Laboratory - Blood Bank Order TYPE & SCREEN - LAB BLOOD WC [facility] Jul 03, 2024 12:00 AM Laboratory - Blood Bank Order TYPE & SCREEN - LAB BLOOD WC [facility] Jul 16, 2024 12:00 AM Laboratory - Chemi stry Order CBC BLOOD SP ONCE [facility] Jul 17, 2024 12:00 AM Laboratory - Chemi stry Order BASIC METABOLIC PANEL+MG PLASMA SP ONCE [facility] Lab Results: +/- 30 [...] Range Comment Jul 21, 2024 10:38 AM [facility] BASIC METABOLIC PANEL+MG Specimen Type: PLASMA No comment entered. Ordering Provider: SARAI GOLDEN Report Released Date/Time: Jul 20, 2024 06:50 PM Reporting Lab: [facility] [address] Performing Lab: [facility] [address] CREATININE 0.8 mg/dL 0.7-1.2 UREA NITROGEN 31 mg/dL H 8-26 GLUCOSE 120 mg/dL H 70-100 SODIUM 125 mmol/L L 136-145 POTASSIUM 4.4 mmol/L 3.5-5.1 CHLORIDE 100 mmol/L 98-107 CO2 17 mmol/L L 22-29 CALCIUM 9.6 mg/dL 8.4-10.2 MAGNESIUM 1.9 mg/dL 1.6-2.6 ANION GAP 8 mmol/L 5-15 .CREAT EGFR(CKD-EPI) >90 >60 Jul 21, 2024 10:38 AM [facility] CBC Specimen Type: BLOOD No comment entered. Ordering Provider: SARAI GOLDEN Report Released Date/Time: Jul 20, 2024 06:50 PM Reporting Lab: [facility] [address] Performing Lab: [facility] [address] WBC 16.0 H 4.0-11.0 RBC 5.16 4.60-6.20 HGB 15.8 g/dL 13.5-17.9 HCT 45.5 41.0-54.0 MCV 88.2 fL 80.0-100.0 MCH 30.6 pg 27.0-33.0 MCHC 34.7 g/dL 32.0-37.5 PLT 428 H 150-400 MPV 10.8 fL 9.1-13.0 RDW 13.6 11.5-14.5 Jul 20, 2024 01:00 PM [facility] SODIUM,URINE RANDOM Specimen Type: URINE No comment entered. Ordering Provider: SARAI GOLDEN Report Released Date/Time: Jul 20, 2024 08:22 AM Reporting Lab: [facility] [address] Performing Lab: [facility] [address] SODIUM,URINE RANDOM <20 mmol/L Jul 20, 2024 01:00 PM [facility] OSMOLALITY,URINE Specimen Type: URINE No comment entered. Ordering Provider: SARAI GOLDEN Report Released Date/Time: Jul 20, 2024 08:22 AM Reporting Lab: [facility] [address] Performing Lab: [facility] [address] OSMOLALITY,URIN E 648 mosm/kg 500-800 Jul 20, 2024 06:45 AM [facility] BASIC METABOLIC PANEL+MG Specimen Type: PLASMA No comment entered. Ordering Provider: SARAI GOLDEN Report Released Date/Time: Jul 19, 2024 06:13 PM Reporting Lab: [facility] [address] Performing Lab: [facility] [address] CREATININE 0.8 mg/dL 0.7-1.2 UREA NITROGEN 36 mg/dL H 8-26 GLUCOSE 111 mg/dL H 70-100 SODIUM 121 mmol/L L 136-145 POTASSIUM 4.1 mmol/L 3.5-5.1 CHLORIDE 99 mmol/L 98-107 CO2 14 mmol/L L 22-29 CALCIUM 9.5 mg/dL 8.4-10.2 MAGNESIUM 1.8 mg/dL 1.6-2.6 ANION GAP 8 mmol/L 5-15 .CREAT EGFR(CKD-EPI) >90 >60 Jul 20, 2024 06:43 AM [facility] CBC & DIFF Specimen Type: BLOOD Comment: Automated Differential Performed Ordering Provider: SARAI GOLDEN Report Released Date/Time: Jul 19, 2024 06:13 PM Reporting Lab: [facility] [address] Performing Lab: [facility] [address] WBC 16.6 H 4.0-11.0 RBC 4.96 4.60-6.20 [...] H 0.0-0.1 Jul 20, 2024 05:30 AM [facility] OSMOLALITY,SERUM Specimen Type: SERUM No comment entered. Ordering Provider: SARAI GOLDEN Report Released Date/Time: Jul 20, 2024 09:47 AM Reporting Lab: [facility] [address] Performing Lab: [facility] [address] OSMOLALITY,SERU M 266 mosm/kg L 276-305 Jul 19, 2024 08:57 AM [facility] BASIC METABOLIC PANEL+MG Specimen Type: PLASMA No comment entered. Ordering Provider: SARAI GOLDEN Report Released Date/Time: Jul 18, 2024 10:24 PM Reporting Lab: [facility] [address] Performing Lab: [facility] [address] CREATININE 1.0 mg/dL 0.7-1.2 UREA NITROGEN 40 mg/dL H 8-26 GLUCOSE 104 mg/dL H 70-100 SODIUM 129 mmol/L L 136-145 POTASSIUM 3.3 mmol/L L 3.5-5.1 CHLORIDE 104 mmol/L 98-107 CO2 16 mmol/L L 22-29 CALCIUM 8.0 mg/dL L 8.4-10.2 MAGNESIUM 1.7 mg/dL 1.6-2.6 ANION GAP 9 mmol/L 5-15 .CREAT EGFR(CKD-EPI) 80 >60 Jul 19, 2024 08:57 AM [facility] CBC Specimen Type: BLOOD No comment entered. Ordering Provider: SARAI GOLDEN Report Released Date/Time: Jul 18, 2024 10:24 PM Reporting Lab: [facility] [address] Performing Lab: [facility] [address] WBC 17.3 H 4.0-11.0 RBC 4.83 4.60-6.20 HGB 14.8 g/dL 13.5-17.9 HCT 42.6 41.0-54.0 MCV 88.2 fL 80.0-100.0 MCH 30.6 pg 27.0-33.0 MCHC 34.7 g/dL 32.0-37.5 PLT 456 H 150-400 MPV 10.8 fL 9.1-13.0 RDW 13.7 11.5-14.5 Jul 17, 2024 06:55 PM [facility] PHOSPHORUS Specimen Type: PLASMA No comment entered. Ordering Provider: SARAI GOLDEN Report Released Date/Time: Jul 17, 2024 01:54 PM Reporting Lab: [facility] [address] Performing Lab: [facility] [address] PHOSPHORUS 2.9 mg/dL 2.3-4.3 Jul 17, 2024 06:55 PM [facility] BASIC METABOLIC PANEL+MG Specimen Type: PLASMA No comment entered. Ordering Provider: SARAI GOLDEN Report Released Date/Time: Jul 17, 2024 01:54 PM Reporting Lab: [facility] [address] Performing Lab: [facility] [address] CREATININE 1.2 mg/dL 0.7-1.2 UREA NITROGEN 62 mg/dL H 8-26 GLUCOSE 116 mg/dL H 70-100 SODIUM 128 mmol/L L 136-145 POTASSIUM 3.8 mmol/L 3.5-5.1 CHLORIDE 100 mmol/L 98-107 CO2 16 mmol/L L 22-29 CALCIUM 9.3 mg/dL 8.4-10.2 MAGNESIUM 2.1 mg/dL 1.6-2.6 ANION GAP 12 mmol/L 5-15 .CREAT EGFR(CKD-EPI) 64 >60 Jul 17, 2024 07:00 AM [facility] CBC & DIFF Specimen Type: BLOOD Comment: Manual Differential Performed Ordering Provider: SARAI GOLDEN Report Released Date/Time: Jul 16, 2024 04:52 PM Reporting Lab: [facility] [address] Performing Lab: [facility] [address] WBC 18.9 H 4.0-11.0 RBC 5.55 4.60-6.20 [...] MORPHOLOGY PRESENT Jul 17, 2024 07:00 AM [facility] ALBUMIN Specimen Type: PLASMA No comment entered. Ordering Provider: SARAI GOLDEN Report Released Date/Time: Jul 16, 2024 12:12 PM Reporting Lab: [facility] [address] Performing Lab: [facility] [address] ALBUMIN 4.3 g/dL 3.5-5.0 Jul 17, 2024 07:00 AM [facility] COMPREHENSIVE METABOLIC PANEL+MG Specimen Type: PLASMA No comment entered. Ordering Provider: SARAI GOLDEN Report Released Date/Time: Jul 16, 2024 04:52 PM Reporting Lab: [facility] [address] Performing Lab: [facility] [address] CREATININE 1.3 mg/dL H 0.7-1.2 UREA NITROGEN [...] L >60 Jul 16, 2024 07:10 PM [facility] LACTIC ACID Specimen Type: PLASMA No comment entered. Ordering Provider: SARAI GOLDEN Report Released Date/Time: Jul 16, 2024 12:12 PM Reporting Lab: [facility] [address] Performing Lab: [facility] [address] LACTIC ACID 0.9 mmol/L 0.5-2.2 Jul 16, 2024 02:14 PM [facility] MRSA SURVL NARES DNA Specimen Type: NARES No comment entered. Ordering Provider: SARAI GOLDEN Report Released Date/Time: Jul 16, 2024 12:12 PM Reporting Lab: [facility] [address] Performing Lab: [facility] [address] MRSA SURVL NARES DNA NEGATIVE Negative Jul 16, 2024 02:10 PM [facility] LACTIC ACID Specimen Type: PLASMA No comment entered. Ordering Provider: SARAI GOLDEN Report Released Date/Time: Jul 16, 2024 12:12 PM Reporting Lab: [facility] [address] Performing Lab: [facility] [address] LACTIC ACID 0.9 mmol/L 0.5-2.2 Jul 16, 2024 02:08 PM [facility] COMPREHENSIVE METABOLIC PANEL+MG Specimen Type: PLASMA No comment entered. Ordering Provider: SARAI GOLDEN Report Released Date/Time: Jul 16, 2024 12:12 PM Reporting Lab: [facility] [address] Performing Lab: [facility] [address] CREATININE 2.0 mg/dL H 0.7-1.2 UREA NITROGEN [...] L >60 Jul 16, 2024 02:08 PM [facility] CBC & DIFF Specimen Type: BLOOD Comment: Manual Differential Performed Ordering Provider: SARAI GOLDEN Report Released Date/Time: Jul 16, 2024 12:12 PM Reporting Lab: [facility] [address] Performing Lab: [facility] [address] WBC 19.7 H 4.0-11.0 RBC 5.39 4.60-6.20 [...] MORPHOLOGY PRESENT Jul 10, 2024 07:16 AM [facility] PHOSPHORUS Specimen Type: PLASMA No comment entered. Ordering Provider: JUANCARLOS ECHOLS Report Released Date/Time: Jul 09, 2024 12:23 PM Reporting Lab: [facility] [address] Performing Lab: [facility] [address] PHOSPHORUS 3.0 mg/dL 2.3-4.3 Jul 10, 2024 07:16 AM [facility] BASIC METABOLIC PANEL+MG Specimen Type: PLASMA No comment entered. Ordering Provider: JUANCARLOS ECHOLS S Report Released Date/Time: Jul 09, 2024 12:23 PM Reporting Lab: [facility] [address] Performing Lab: [facility] [address] CREATININE 0.7 mg/dL 0.7-1.2 UREA NITROGEN 27 mg/dL H 8-26 GLUCOSE 104 mg/dL H 70-100 SODIUM 133 mmol/L L 136-145 POTASSIUM 4.3 mmol/L 3.5-5.1 CHLORIDE 102 mmol/L 98-107 CO2 19 mmol/L L 22-29 CALCIUM 10.1 mg/dL 8.4-10.2 MAGNESIUM 1.9 mg/dL 1.6-2.6 ANION GAP 12 mmol/L 5-15 .CREAT EGFR(CKD-EPI) >90 >60 Jul 10, 2024 07:15 AM [facility] CBC Specimen Type: BLOOD No comment entered. Ordering Provider: JUANCARLOS ECHOLS Report Released Date/Time: Jul 09, 2024 12:23 PM Reporting Lab: [facility] [address] Performing Lab: [facility] [address] WBC 18.8 H 4.0-11.0 RBC 5.08 4.60-6.20 HGB 15.9 g/dL 13.5-17.9 HCT 46.8 41.0-54.0 MCV 92.1 fL 80.0-100.0 MCH 31.3 pg 27.0-33.0 MCHC 34.0 g/dL 32.0-37.5 PLT 479 H 150-400 MPV 10.2 fL 9.1-13.0 RDW 13.7 11.5-14.5 Jul 09, 2024 07:08 AM [facility] CBC Specimen Type: BLOOD No comment entered. Ordering Provider: QUYNH WEISS Report Released Date/Time: Jul 08, 2024 06:18 PM Reporting Lab: [facility] [address] Performing Lab: [facility] [address] WBC 15.3 H 4.0-11.0 RBC 4.91 4.60-6.20 HGB 15.1 g/dL 13.5-17.9 HCT 45.7 41.0-54.0 MCV 93.1 fL 80.0-100.0 MCH 30.8 pg 27.0-33.0 MCHC 33.0 g/dL 32.0-37.5 PLT 443 H 150-400 MPV 10.0 fL 9.1-13.0 RDW 13.5 11.5-14.5 Jul 08, 2024 10:50 AM [facility] URINALYSIS Specimen Type: URINE No comment entered. Ordering Provider: KATELYNN PERSON Report Released Date/Time: Jul 08, 2024 08:41 AM Reporting Lab: [facility] [address] Performing Lab: [facility] [address] URINE COLOR YELLOW SPECIFIC GRAVITY >1.050 H [...] NEGATIVE NEGATIVE Jul 08, 2024 09:54 AM [facility] CBC Specimen Type: BLOOD Comment: Specimen received in Lab at: [id number] Ordering Provider: JUANCARLOS ECHOLS Report Released Date/Time: Jul 07, 2024 04:49 PM Reporting Lab: [facility] [address] Performing Lab: [facility] [address] WBC 17.5 H 4.0-11.0 RBC 4.88 4.60-6.20 HGB 14.9 g/dL 13.5-17.9 HCT 45.7 41.0-54.0 MCV 93.6 fL 80.0-100.0 MCH 30.5 pg 27.0-33.0 MCHC 32.6 g/dL 32.0-37.5 PLT 472 H 150-400 MPV 10.2 fL 9.1-13.0 RDW 13.7 11.5-14.5 Jul 08, 2024 09:54 AM [facility] PHOSPHORUS Specimen Type: PLASMA Comment: Specimen received in Lab at: [id number] Ordering Provider: JUANCARLOS ECHOLS Report Released Date/Time: Jul 07, 2024 04:49 PM Reporting Lab: [facility] [address] Performing Lab: [facility] [address] PHOSPHORUS 2.6 mg/dL 2.3-4.3 Jul 08, 2024 09:54 AM [facility] BASIC METABOLIC PANEL+MG Specimen Type: PLASMA Comment: Specimen received in Lab at: 0952 Ordering Provider: JUANCARLOS ECHOLS Report Released Date/Time: Jul 07, 2024 04:49 PM Reporting Lab: [facility] [address] Performing Lab: [facility] [address] CREATININE 0.9 mg/dL 0.7-1.2 UREA NITROGEN 26 mg/dL 8-26 GLUCOSE 128 mg/dL H 70-100 SODIUM 134 mmol/L L 136-145 POTASSIUM 3.4 mmol/L L 3.5-5.1 CHLORIDE 100 mmol/L 98-107 CO2 24 mmol/L 22-29 CALCIUM 9.8 mg/dL 8.4-10.2 MAGNESIUM 1.8 mg/dL 1.6-2.6 ANION GAP 10 mmol/L 5-15 .CREAT EGFR(CKD-EPI) >90 >60 Jul 07, 2024 02:00 PM [facility] C DIFF PANEL Specimen Type: FECES No comment entered. Ordering Provider: JEVON ZAZUETA Report Released Date/Time: Jul 07, 2024 12:26 PM Reporting Lab: [facility] [address] Performing Lab: [facility] [address] C DIFF TOX B GENE PCR NEGATIVE Negative Jul 07, 2024 07:41 AM [facility] PHOSPHORUS Specimen Type: PLASMA No comment entered. Ordering Provider: JEVON ZAZUETA Report Released Date/Time: Jul 06, 2024 03:44 PM Reporting Lab: [facility] [address] Performing Lab: [facility] [address] PHOSPHORUS 3.1 mg/dL 2.3-4.3 Jul 07, 2024 07:41 AM [facility] BASIC METABOLIC PANEL+MG Specimen Type: PLASMA No comment entered. Ordering Provider: JEVON ZAZUETA Report Released Date/Time: Jul 06, 2024 03:44 PM Reporting Lab: [facility] [address] Performing Lab: [facility] [address] CREATININE 0.9 mg/dL 0.7-1.2 UREA NITROGEN 20 mg/dL 8-26 GLUCOSE 157 mg/dL H 70-100 SODIUM 136 mmol/L 136-145 POTASSIUM 3.7 mmol/L 3.5-5.1 CHLORIDE 102 mmol/L 98-107 CO2 21 mmol/L L 22-29 CALCIUM 9.8 mg/dL 8.4-10.2 MAGNESIUM 1.9 mg/dL 1.6-2.6 ANION GAP 13 mmol/L 5-15 .CREAT EGFR(CKD-EPI) >90 >60 Jul 07, 2024 07:40 AM [facility] CBC Specimen Type: BLOOD No comment entered. Ordering Provider: JEVON ZAZUETA Report Released Date/Time: Jul 06, 2024 03:44 PM Reporting Lab: [facility] [address] Performing Lab: [facility] [address] WBC 21.2 H 4.0-11.0 RBC 5.09 4.60-6.20 HGB 15.9 g/dL 13.5-17.9 HCT 48.3 41.0-54.0 MCV 94.9 fL 80.0-100.0 MCH 31.2 pg 27.0-33.0 MCHC 32.9 g/dL 32.0-37.5 PLT 500 H 150-400 MPV 10.3 fL 9.1-13.0 RDW 13.6 11.5-14.5 Jul 06, 2024 07:21 AM [facility] CBC Specimen Type: BLOOD No comment entered. Ordering Provider: JEVON ZAZUETA Report Released Date/Time: Jul 05, 2024 01:22 PM Reporting Lab: [facility] [address] Performing Lab: [facility] [address] WBC 18.0 H 4.0-11.0 RBC 4.83 4.60-6.20 HGB 14.6 g/dL 13.5-17.9 HCT 45.5 41.0-54.0 MCV 94.2 fL 80.0-100.0 MCH 30.2 pg 27.0-33.0 MCHC 32.1 g/dL 32.0-37.5 PLT 368 150-400 MPV 10.4 fL 9.1-13.0 RDW 13.6 11.5-14.5 Jul 06, 2024 07:21 AM [facility] PHOSPHORUS Specimen Type: PLASMA No comment entered. Ordering Provider: JEVON ZAZUETA Report Released Date/Time: Jul 05, 2024 01:22 PM Reporting Lab: [facility] [address] Performing Lab: [facility] [address] PHOSPHORUS 3.6 mg/dL 2.3-4.3 Jul 06, 2024 07:21 AM [facility] BASIC METABOLIC PANEL+MG Specimen Type: PLASMA No comment entered. Ordering Provider: JEVON ZAZUETA Report Released Date/Time: Jul 05, 2024 01:22 PM Reporting Lab: [facility] [address] Performing Lab: [facility] [address] CREATININE 0.7 mg/dL 0.7-1.2 UREA NITROGEN 12 mg/dL 8-26 GLUCOSE 108 mg/dL H 70-100 SODIUM 138 mmol/L 136-145 POTASSIUM 3.4 mmol/L L 3.5-5.1 CHLORIDE 104 mmol/L 98-107 CO2 20 mmol/L L 22-29 CALCIUM 9.3 mg/dL 8.4-10.2 MAGNESIUM 1.9 mg/dL 1.6-2.6 ANION GAP 14 mmol/L 5-15 .CREAT EGFR(CKD-EPI) >90 >60 Jul 05, 2024 07:17 AM [facility] MAGNESIUM Specimen Type: PLASMA No comment entered. Ordering Provider: JUANCARLOS ECHOLS S Report Released Date/Time: Jul 04, 2024 09:39 AM Reporting Lab: [facility] [address] Performing Lab: [facility] [address] MAGNESIUM 2.0 mg/dL 1.6-2.6 Jul 05, 2024 07:17 AM [facility] PHOSPHORUS Specimen Type: PLASMA No comment entered. Ordering Provider: JUANCARLOS ECHOLS S Report Released Date/Time: Jul 04, 2024 09:39 AM Reporting Lab: [facility] [address] Performing Lab: [facility] [address] PHOSPHORUS 2.0 mg/dL L 2.3-4.3 Jul 05, 2024 07:17 AM [facility] BASIC METABOLIC PANEL+MG Specimen Type: PLASMA No comment entered. Ordering Provider: JUANCARLOS ECHOLS S Report Released Date/Time: Jul 04, 2024 09:39 AM Reporting Lab: [facility] [address] Performing Lab: [facility] [address] CREATININE 0.7 mg/dL 0.7-1.2 UREA NITROGEN 12 mg/dL 8-26 GLUCOSE 84 mg/dL 70-100 SODIUM 135 mmol/L L 136-145 POTASSIUM 3.8 mmol/L 3.5-5.1 CHLORIDE 104 mmol/L 98-107 CO2 24 mmol/L 22-29 CALCIUM 9.3 mg/dL 8.4-10.2 MAGNESIUM 2.0 mg/dL 1.6-2.6 ANION GAP 7 mmol/L 5-15 .CREAT EGFR(CKD-EPI) >90 >60 Jul 05, 2024 07:16 AM [facility] CBC Specimen Type: BLOOD No comment entered. Ordering Provider: JUANCARLOS ECHOLS S Report Released Date/Time: Jul 04, 2024 09:39 AM Reporting Lab: [facility] [address] Performing Lab: [facility] [address] WBC 18.3 H 4.0-11.0 RBC 4.49 L 4.60-6.20 HGB 14.1 g/dL 13.5-17.9 HCT 43.4 41.0-54.0 MCV 96.7 fL 80.0-100.0 MCH 31.4 pg 27.0-33.0 MCHC 32.5 g/dL 32.0-37.5 PLT 317 150-400 MPV 10.0 fL 9.1-13.0 RDW 13.9 11.5-14.5 Jul 04, 2024 07:17 AM [facility] PHOSPHORUS Specimen Type: PLASMA No comment entered. Ordering Provider: GABINO CAMERON Report Released Date/Time: Jul 03, 2024 06:31 PM Reporting Lab: [facility] [address] Performing Lab: [facility] [address] PHOSPHORUS 2.8 mg/dL 2.3-4.3 Jul 04, 2024 07:17 AM [facility] BASIC METABOLIC PANEL+MG Specimen Type: PLASMA No comment entered. Ordering Provider: GABINO CAMERON Report Released Date/Time: Jul 03, 2024 06:31 PM Reporting Lab: [facility] [address] Performing Lab: [facility] [address] CREATININE 0.7 mg/dL 0.7-1.2 UREA NITROGEN 16 mg/dL 8-26 GLUCOSE 129 mg/dL H 70-100 SODIUM 137 mmol/L 136-145 POTASSIUM 3.7 mmol/L 3.5-5.1 CHLORIDE 107 mmol/L 98-107 CO2 22 mmol/L 22-29 CALCIUM 9.0 mg/dL 8.4-10.2 MAGNESIUM 1.9 mg/dL 1.6-2.6 ANION GAP 8 mmol/L 5-15 .CREAT EGFR(CKD-EPI) >90 >60 Jul 04, 2024 07:16 AM [facility] CBC Specimen Type: BLOOD No comment entered. Ordering Provider: GABINO CAMERON Report Released Date/Time: Jul 03, 2024 06:31 PM Reporting Lab: [facility] [phone] Performing Lab: [facility] [phone] WBC 20.6 H 4.0-11.0 RBC 4.63 4.60-6.20 HGB 14.2 g/dL 13.5-17.9 HCT 43.4 41.0-54.0 MCV 93.7 fL 80.0-100.0 MCH 30.7 pg 27.0-33.0 MCHC 32.7 g/dL 32.0-37.5 PLT 329 150-400 MPV 10.4 fL 9.1-13.0 RDW 13.8 11.5-14.5 Jul 04, 2024 07:16 AM [facility] CBC & DIFF Specimen Type: BLOOD Comment: Manual Differential Performed Ordering Provider: GABINO CAMERON Report Released Date/Time: Jul 03, 2024 06:31 PM Reporting Lab: [facility] [phone] Performing Lab: [facility] [address] WBC 20.6 H 4.0-11.0 RBC 4.63 4.60-6.20 [...] MORPHOLOGY PRESENT Jul 04, 2024 07:15 AM [facility] BNP Specimen Type: PLASMA No comment entered. Ordering Provider: GABINO CAMERON Report Released Date/Time: Jul 03, 2024 06:31 PM Reporting Lab: [facility] [phone] Performing Lab: [facility] [address] BNP 292 pg/mL H <99 Jul 03, 2024 10:32 PM [facility] FINGERSTICK GLUCOSE Specimen Type: BLOOD Comment: Save Result Nurse Notified Ordering Provider: KATELYNN PERSON Report Released Date/Time: Jul 03, 2024 10:50 PM Reporting Lab: [facility] [phone] Performing Lab: [facility] [address] FINGERSTICK GLUCOSE 126 mg/dL H 70-100 Jul 03, 2024 05:33 PM [facility] FINGERSTICK GLUCOSE Specimen Type: BLOOD Comment: Save Result Nurse Notified Ordering Provider: KATELYNN PERSON Report Released Date/Time: Jul 03, 2024 05:46 PM Reporting Lab: [facility] [address] Performing Lab: [facility] [address] FINGERSTICK GLUCOSE 141 mg/dL H 70-100 Jul 03, 2024 02:31 PM [facility] POC ABG/ELECTROLYTES Specimen Type: ARTERIAL BLOOD Comment: FIO2 = 97% Patient Temp: 36.0 C Sample Type = ARTERIAL Ordering Provider: MAZIN ARREDONDO Report Released Date/Time: Jul 03, 2024 01:48 PM Reporting Lab: [facility] [phone] Performing Lab: [facility] [address] POC PH 7.387 7.35-7.45 POC PCO2 34.4 [...] H 80.0-105.0 Jul 03, 2024 01:05 PM [facility] POC ABG/ELECTROLYTES Specimen Type: ARTERIAL BLOOD Comment: FIO2 = 53% Patient Temp: 36.2 C Sample Type = ARTERIAL Ordering Provider: MAZIN ARREDONDO Report Released Date/Time: Jul 03, 2024 01:48 PM Reporting Lab: [facility] [address] Performing Lab: [facility] [address] POC PH 7.280 L 7.35-7.45 POC PCO2 [...] mm[Hg] 80.0-105.0 Jul 03, 2024 06:15 AM [facility] URINALYSIS Specimen Type: URINE No comment entered. Ordering Provider: MARYBETH POWELL Report Released Date/Time: Jun 12, 2024 04:01 PM Reporting Lab: [facility] [phone] Performing Lab: [facility] [address] URINE COLOR YELLOW SPECIFIC GRAVITY 1.031 1.003-1.03 [...] 250 NEGATIVE Jul 03, 2024 06:13 AM [facility] CBC Specimen Type: BLOOD No comment entered. Ordering Provider: MARYBETH POWELL Report Released Date/Time: Jun 12, 2024 03:59 PM Reporting Lab: [facility] [address] Performing Lab: [facility] [address] WBC 15.8 H 4.0-11.0 RBC 5.11 4.60-6.20 HGB 16.1 g/dL 13.5-17.9 HCT 49.1 41.0-54.0 MCV 96.1 fL 80.0-100.0 MCH 31.5 pg 27.0-33.0 MCHC 32.8 g/dL 32.0-37.5 PLT 357 150-400 MPV 9.8 fL 9.1-13.0 RDW 13.7 11.5-14.5 Jun 24, 2024 09:50 AM [facility] BASIC METABOLIC PANEL+MG Specimen Type: PLASMA Comment: Specimen received in Lab at: [id number] Ordering Provider: JEVON ZAZUETA Report Released Date/Time: Jun 23, 2024 06:07 PM Reporting Lab: [facility] [address] Performing Lab: [facility] [address] CREATININE 0.8 mg/dL 0.7-1.2 UREA NITROGEN 13 mg/dL 8-26 GLUCOSE 135 mg/dL H 70-100 SODIUM 135 mmol/L L 136-145 POTASSIUM 3.6 mmol/L 3.5-5.1 CHLORIDE 103 mmol/L 98-107 CO2 24 mmol/L 22-29 CALCIUM 9.2 mg/dL 8.4-10.2 MAGNESIUM 1.9 mg/dL 1.6-2.6 ANION GAP 8 mmol/L 5-15 .CREAT EGFR(CKD-EPI) >90 >60 Jun 24, 2024 09:50 AM [facility] CBC Specimen Type: BLOOD Comment: Specimen received in Lab at: 0948 Ordering Provider: JEVON ZAZUETA Report Released Date/Time: Jun 23, 2024 06:07 PM Reporting Lab: [facility] [address] Performing Lab: [facility] [address] WBC 15.5 H 4.0-11.0 RBC 4.93 4.60-6.20 HGB 15.2 g/dL 13.5-17.9 HCT 46.5 41.0-54.0 MCV 94.3 fL 80.0-100.0 MCH 30.8 pg 27.0-33.0 MCHC 32.7 g/dL 32.0-37.5 PLT 223 150-400 MPV 11.4 fL 9.1-13.0 RDW 13.9 11.5-14.5 Jun 23, 2024 07:52 AM [facility] COMPREHENSIVE METABOLIC PANEL+MG Specimen Type: PLASMA No comment entered. Ordering Provider: JEVON ZAZUETA Report Released Date/Time: Jun 22, 2024 05:51 PM Reporting Lab: [facility] [address] Performing Lab: [facility] [address] CREATININE 0.7 mg/dL 0.7-1.2 UREA NITROGEN 16 [...] >90 >60 Jun 23, 2024 07:52 AM [facility] CBC & DIFF Specimen Type: BLOOD Comment: Automated Differential Performed Ordering Provider: JEVON ZAZUETA Report Released Date/Time: Jun 22, 2024 05:51 PM Reporting Lab: [facility] [address] Performing Lab: [facility] [address] WBC 14.9 H 4.0-11.0 RBC 5.09 4.60-6.20 [...] 0.1 0.0-0.1 Jun 22, 2024 06:10 PM [facility] CBC Specimen Type: BLOOD No comment entered. Ordering Provider: JEVON ZAZUETA Report Released Date/Time: Jun 22, 2024 05:51 PM Reporting Lab: [facility] [address] Performing Lab: [facility] [address] WBC 16.9 H 4.0-11.0 RBC 5.28 4.60-6.20 HGB 16.9 g/dL 13.5-17.9 HCT 50.4 41.0-54.0 MCV 95.5 fL 80.0-100.0 MCH 32.0 pg 27.0-33.0 MCHC 33.5 g/dL 32.0-37.5 PLT 223 150-400 MPV 10.9 fL 9.1-13.0 RDW 14.0 11.5-14.5 Jun 22, 2024 06:10 PM [facility] COMPREHENSIVE METABOLIC PANEL+MG Specimen Type: PLASMA No comment entered. Ordering Provider: JEVON ZAZUETA Report Released Date/Time: Jun 22, 2024 05:51 PM Reporting Lab: [facility] [address] Performing Lab: [facility] [address] CREATININE 0.7 mg/dL 0.7-1.2 UREA NITROGEN 17 [...] >90 >60 Jun 21, 2024 06:48 PM [facility] URINALYSIS Specimen Type: URINE No comment entered. Ordering Provider: DELIA MARTINEZ Report Released Date/Time: Jun 21, 2024 05:45 PM Reporting Lab: [facility] [address] Performing Lab: [facility] [address] URINE COLOR YELLOW SPECIFIC GRAVITY 1.041 H [...] 500 NEGATIVE Jun 21, 2024 05:34 PM [facility] POC CREATININE Specimen Type: BLOOD No comment entered. Ordering Provider: DELIA MARTINEZ Report Released Date/Time: Jun 21, 2024 06:07 PM Reporting Lab: [facility] [address] Performing Lab: [facility] [address] POC CREATININE 1.1 mg/dL 0.6-1.3 Jun 21, 2024 05:30 PM [facility] POC ABG/LACTATE Specimen Type: VENOUS BLOOD No comment entered. Ordering Provider: DELIA MARTINEZ Report Released Date/Time: Jun 21, 2024 06:07 PM Reporting Lab: [facility] [address] Performing Lab: [facility] [address] POC PH 7.470 H 7.31-7.41 POC PCO2 31.2 mm[Hg] L 41.00-51 .0 0 POC PO2 46 mm[Hg] H 35.0-40.0 POC TCO2 24 mmol/L 24.0-29.0 POC HCO3 22.7 mmol/L L 23.0-28.0 POC BE ECT -1 mmol/L POC SO2 85 H 70-75 POC LACTATE 1.85 mmol/L 0.90-1.70 Jun 21, 2024 05:24 PM [facility] PROTHROMBIN TIME/INR Specimen Type: PLASMA No comment entered. Ordering Provider: DELIA MARTINEZ Report Released Date/Time: Jun 21, 2024 05:30 PM Reporting Lab: [facility] [address] Performing Lab: [facility] [address] .INR 1.2 H 0.8-1.1 .PT 13.9 s H 9.4-12.5 Jun 21, 2024 05:24 PM [facility] LIPASE Specimen Type: PLASMA No comment entered. Ordering Provider: DELIA MARTINEZ Report Released Date/Time: Jun 21, 2024 05:30 PM Reporting Lab: [facility] [address] Performing Lab: [facility] [address] LIPASE 32 U/L <60 Jun 21, 2024 05:24 PM [facility] EXTRA GOLD GEL TUBE Specimen Type: SERUM No comment entered. Ordering Provider: DELIA MARTINEZ Report Released Date/Time: Jun 21, 2024 05:41 PM Reporting Lab: [facility] [address] Performing Lab: [facility] [address] EXTRA GOLD GEL TUBE RECEIVED Jun 21, 2024 05:24 PM [facility] COMPREHENSIVE METABOLIC PANEL+MG Specimen Type: PLASMA No comment entered. Ordering Provider: DELIA MARTINEZ Report Released Date/Time: Jun 21, 2024 05:30 PM Reporting Lab: [facility] [address] Performing Lab: [facility] [address] CREATININE 0.9 mg/dL 0.7-1.2 UREA NITROGEN 29 [...] mg/dL <0.5 Jun 21, 2024 05:24 PM [facility] CBC & DIFF Specimen Type: BLOOD Comment: Manual Differential Performed Ordering Provider: DELIA MARTINEZ Report Released Date/Time: Jun 21, 2024 05:30 PM Reporting Lab: [facility] [address] Performing Lab: [facility] [address] WBC 21.3 H 4.0-11.0 RBC 5.48 4.60-6.20 [...] Source Jul 18, 2024 11:21 PM 9 [facility] Social History: Smoking Status (Most current) [...] 15, 2024 08:30 AM [facility] Y[facility] OR MORE [facility] May 06, 2023 11:30 AM VA-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 [facility] May 06, 2023 11:30 [...] 06:15 PM CHEST 1 VIEW: FLACA WEAVER [id number] -1950 M Exm Date: JUL 18, 2024@18:15 Req Phys: LEISA GOLDEN Loc: 3E07-18-2024@19:00 Img Loc: MAIN X-RAY Service: [place] [address] (Case [id number] COMPLETE) CHEST 1 VIEW (RAD Detailed) CPT:33084 Proc Modifiers : PORTABLE EXAM Reason for Study: SOB Clinical History: IS NOT under investigation for COVID-19 or is COVID-19 negative 73 yo with SOB Responsible provider name and phone number to notify for critical findings if other than user placing the order and pager listed below: User placing orders pager: [phone] LAST CREATININE 1.2 (07/17/24) Report Status: Verified Date Reported: JUL 18, 2024 Date Verified: JUL 18, 2024 Breaker Machine Tender E-Sig:/ES/CARLOS A CUNNINGHAM DO Report: EXAMINATION: CHEST 1 VIEW Reason for Study: SOB IS NOT under investigation for COVID-19 or is COVID-19 negative 73 yo with SOB Responsible provider name and phone number to notify for critical findings if other than user placing the order and pager listed below: User placing orders pager: [phone] LAST CREATININE 1.2 (07/17/24) SOB TECHNIQUE: Single [...] Interpreting Staff: CARLOS A CUNNINGHAM DO, RADIOLOGIST (Breaker Machine Tender) /CARLOS A ROWELL [facility] Jul 16, 2024 07:[address] [facility] CT ABDOMEN/PELVIS: FLACA WEAVER [id number] -1950 M Exm Date: JUL 16, 2024@07:49 Req Phys: JATINDER CABRERA Loc: 07-17-2024@09:02 Img Loc: OUTSOURCE CT Service: Unknown (Case [id number] COMPLETE) NON NC CT ABDOMEN/PELVIS (CT Detailed) CPT:66045 Reason for Study: outside study Clinical History: [...] Diagnostic Code: VERIFIED BY: / *ELECTRONICALLY FILED* [facility] Jul 13, 2024 09:41 [address] [facility] CT ABDOMEN/PELVIS: FLACA WEAVER [id number] -1950 M Exm Date: JUL 13, 2024@09:41 Req Phys: JATINDER CABRERA Loc: 07-17-2024@09:08 Img Loc: OUTSOURCE CT Service: Unknown (Case [id number] COMPLETE) NON NC CT ABDOMEN/PELVIS (CT Detailed) CPT:32972 Reason for Study: outside study Clinical History: [...] Diagnostic Code: VERIFIED BY: / *ELECTRONICALLY FILED* [facility] Jul 08, 2024 10:09 AM CHEST 2 VIEWS PA AND LAT: FLACA WEAVER [id number] -1950 M Exm Date: JUL 08, 2024@10:09 Req Phys: KATELYNN PERSON Pat Loc: 2KG/07-08-2024@11:49 Img Loc: MAIN X-RAY Service: [place] [address] (Case 24 COMPLETE) CHEST 2 VIEWS PA AND LAT (RAD Detailed) CPT:65739 Reason for Study: Uptrending WBC, POD 5 Clinical History: [place] IS NOT under investigation [...] 08, 2024 Date Verified: JUL 08, 2024 Breaker Machine Tender E-Sig: Report: CHEST 2 VIEWS PA [...] cardiopulmonary disease. READING PHYSICIAN: Sarbjit Vaughn M.D. -[phone] 07/08/2024 12:46 EST [facility] National Teleradiology Program [phone] (For Medical Practitioner Use Only) Attention Patients / Veterans: If you have questions or concerns about these test results, please contact your ordering provider or primary care team. Primary Interpreting Staff: RADIOLOGY,OUTSIDE SERVICE, Staff Physician / RADIOLOGY,OUTSIDE SERVICE [facility] Jul 08, 2024 10:[address] (AP) ABDOMEN/PELVIS W CONTRAST: FLACA WEAVER [id number] -1950 M Exm Date: JUL 08, 2024@10:00 Req Phys: KATELYNN PERSON Pat Loc: 2K/07-08-2024@12:07 Img Loc: CT IMAGING Service: [place] [address] (Case 22 COMPLETE) CT (AP) ABDOMEN/PELVIS W CONTRAST(CT Detailed) CPT:50155 Contrast Media : Non-ionic Iodinated Reason for [...] .CREAT EGFR(CKD-E >90 Ref: >=60 Allergies: ([place] only) TERAZOSIN (Mar 13, 2015) Report Status: Verified Date Reported: JUL 08, 2024 Date Verified: JUL 08, 2024 Breaker Machine Tender E-Sig: Report: CT (AP) ABDOMEN/PELVIS W [...] as noted above READING PHYSICIAN: Celestino Blanc -[phone] 07/08/2024 13:04 EST [facility] Program [phone] (For Medical Practitioner Use Only) Attention Patients / Veterans: If you have questions or concerns about these test results, please contact your ordering provider or primary care team. Primary Interpreting Staff: RADIOLOGY,OUTSIDE SERVICE, Staff Physician / RADIOLOGY,OUTSIDE SERVICE [facility] Jun 22, 2024 11:49 AM ABSCESS DRAIN PLACEMENT PERITONEAL (P): FLACA WEAVER [id number] -1950 M Exm Date: JUN 22, 2024@11:49 Req Phys: ANGELA HOLDEN Loc: [facility]/06-22-2024@17:14 Img Loc: INTERVENTIONAL RADIOLOGY Service: [place] [address] (Case [id number] COMPLETE) IR PERITONEAL/RETROPERITONEAL PER(ANI Detailed) CPT:48728 Reason for Study: diverticulitis with abscess (Case 3570 COMPLETE) IR MOD SEDATION 10-22 MIN (ANI Detailed) CPT:47162 Clinical History: IS NOT under investigation for COVID-19 or is COVID-19 negative 73 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 please place abscess drain. Contact number for responsible provider who can be reached for any questions or notifications of critical findings: [phone] n/a LAST CREATININE 0.9 (06/21/24) Report Status: Verified Date Reported: JUN 22, 2024 Date Verified: JUN 22, 2024 Breaker Machine Tender E-Sig:/ES/LISA PENDLETON MD Report: PROCEDURES: Placement [...] anesthesia. Using real-time CT fluoroscopy, a 5 Telugu Yueh centesis catheter was advanced into the collection in the left pelvis. A wire was coiled in the collection. The tract into the collection was dilated to accommodate the 12 Telugu locking pigtail drainage catheter. There was return [...] Primary Interpreting Staff: LISA PENDLETON MD, RADIOLOGIST (Breaker Machine Tender) /JRT LISA PENDLETON [facility] Jun 22, 2024 11:[address] NEEDLE PLACEMENT (P): FLACA WEAVER [id number] -1950 M Exm Date: JUN 22, 2024@11:48 Req Phys: ANGELA HOLDEN [facility] Loc: [facility]/06-22-2024@17:14 Img Loc: CT IMAGING Service: [place] [address] (Case [id number] COMPLETE) CT SCAN FOR NEEDLE PLACEMENT (CT Detailed) CPT:55293 Reason for Study: l pelvic abscess drain Clinical History: Report Status: Verified Date Reported: JUN 22, 2024 Date Verified: JUN 22, 2024 Breaker Machine Tender E-Sig:/ES/LISA PENDLETON MD Report: PROCEDURES: Placement [...] anesthesia. Using real-time CT fluoroscopy, a 5 Telugu [employer]esis catheter was advanced into the collection in the left pelvis. A wire was coiled in the collection. The tract into the collection was dilated to accommodate the 12 Telugu locking pigtail drainage catheter. There was return [...] Primary Interpreting Staff: LISA PENDLETON MD, RADIOLOGIST (Breaker Machine Tender) /JRT LISA PENDLETON [facility] Jun 21, 2024 06:[address] (AP) ABDOMEN/PELVIS (P): FLACA WEAVER [id number] -1950 M Exm Date: JUN 21, 2024@18:09 Req Phys: DELIA MARTINEZ Loc: [facility] EMERGENCY DEPT WALK-IN (Re Img Loc: CT IMAGING Service: [place] [address] (Case [id number] COMPLETE) CT (AP) ABDOMEN/PELVIS W CONTRAST(CT Detailed) CPT:06094 Contrast Media : Non-ionic Iodinated Reason for [...] PLASMA .CREAT EGFR(CKD-E >90 Ref: >=60 Allergies: ([facility]) TERAZOSIN (Mar 13, 2015) Defer [...] 21, 2024 Date Verified: JUN 21, 2024 Breaker Machine Tender E-Sig:/ALEXI/CARLOS A CUNNINGHAM DO Report: EXAMINATION: [...] Interpreting Staff: CARLOS A CUNNINGHAM DO, RADIOLOGIST (Breaker Machine Tender) /CARLOS A ROWELL [facility] Pathology Reports: +/- 30 [...] PM LR MICROBIOLOGY RE PORT: Reporting Lab: [facility] [CLIA# [id number]] [place] [address] Accession [UID]: [id number] [[id number]] Received: Jul 16, 2024@14:41 Collection sample: BLOOD Collection date: Jul 16, 2024 14:07 Provider: LEISA GOLDEN Comment on specimen: R AC, RECEIVED 2 BLOOD CULTURE BOTTLES Test(s) ordered: CULTURE & SUSCEPTIBILITY...... completed: Jul 22, 2024 * BACTERIOLOGY FINAL REPORT => Jul 22, 2024 13:39 TECH CODE: [id number] CULTURE RESULTS: NO GROWTH 5 DAYS Bacteriology Remark(s): THIS REPORT IS FINAL =--=--=--=--=--=--=--=--=--= --=--=--=--=--=--=--=--=--=- -=--=--=--=--=--=--=-- Performing Laboratory: Bacteriology Report Performed By: [facility] [CLIA# [id number]] [place] [address] [facility] Jul 16, 2024 01:54 PM LR MICROBIOLOGY RE PORT: Reporting Lab: [facility] [CLIA# [id number]] [place] [address] Accession [UID]: [id number] [[id number]] Received: Jul 16, 2024@14:41 Collection sample: BLOOD Collection date: Jul 16, 2024 13:54 Provider: LEISA GOLDEN Comment on specimen: L AC, RECEIVED 2 BLOOD CULTURE BOTTLES Test(s) ordered: CULTURE & SUSCEPTIBILITY...... completed: Jul 22, 2024 * BACTERIOLOGY FINAL REPORT => Jul 22, 2024 13:39 TECH CODE: [id number] CULTURE RESULTS: NO GROWTH 5 DAYS Bacteriology Remark(s): THIS REPORT IS FINAL =--=--=--=--=--=--=--=--=--= --=--=--=--=--=--=--=--=--=- -=--=--=--=--=--=--=-- Performing Laboratory: Bacteriology Report Performed By: [facility] [CLIA# [id number]] [place] [address] [facility] Jul 03, 2024 05:59 AM LR SURGICAL PATHOL OGY REPORT: LOCAL TITLE: LR SURGICAL PATHOLOGY REPORT STANDARD TITLE: PATHOLOGY REPORT DATE OF NOTE: JUL 06, 2024@10:40:48 ENTRY DATE: JUL 06, 2024@10:40:48 AUTHOR: EDUARDO PALOMARES EXP COSIGNER: URGENCY: STATUS: COMPLETED $APHDR Reporting Lab: [facility] [CLIA# [id number]] [place] [address] - - - - - - - [...] - - - PATHOLOGY REPORT Accession No. [id number] - - - - - - - [...] - PATHOLOGY REPORT Accession No. [id number] - - - - - - - [...] Second circumferential surgical margin, en face; E-F: Pyrometallurgical Engineer diverticula; G: Pyrometallurgical Engineer section of mesentery; H: Random metals sales representative section of additional adipose tissue [...] colonic tissue ring, bisected transversely. [facility]. [facility]: Microscopic examination performed. DIAGNOSIS: 1. Colon, sigmoid, sigmoidectomy-- - Diverticulosis with perforation and focal abscess formation 2. Colon, anastomotic rings, excision-- - Viable colonic mucosa without diagnostic abnormality /es/ EDUARDO PALOMARES MD STAFF PATHOLOGIST Signed Jul 06, 2024@10:40 Performing Laboratory: Surgical Pathology Report Performed By: [facility] [CLIA# [id number]] [place] [address] $FTR - - - - - - [...] - - FLACA WEAVER STANDARD FORM 515 ID:[id number] SEX:M :1950 AGE: 73 LOC:01429 ADM:Jun DX:DIVERTICULITIS PCP: Jatinder Cabrera /alexi/ EDUARDO PALOMARES MD STAFF PATHOLOGIST Signed: 07/06/2024 10:40 EDUARDO PALOMARES [facility] Jun 22, 2024 01:15 PM LR MICROBIOLOGY RE PORT: Reporting Lab: [facility] [CLIA# [id number]] [place] [address] Accession [UID]: [id number] [[id number]] Received: Jun 22, 2024@13:38 Collection sample: FLUID Collection date: Jun 22, 2024 13:15 Provider: ANGELA HOLDEN Comment on specimen: LLQ ABSCESS, RECEIVED IN ANAEROBIC TRANSPORT VIAL Test(s) ordered: GRAM STAIN.................... completed: Jun 22, 2024 15:03 CULTURE & SUSCEPTIBILITY...... completed: Jun 25, 2024 * BACTERIOLOGY FINAL REPORT => Jun 25, 2024 10:56 TECH CODE: [id number] GRAM STAIN: DIRECT SMEAR of specimen before [...] -=--=--=--=--=--=--=-- Performing Laboratory: Bacteriology Report Performed By: [facility] [CLIA# [id number]] [place] [address] [facility] Jun 22, 2024 01:15 PM LR MICROBIOLOGY RE PORT: Reporting Lab: [facility] [CLIA# [id number]] [place] [id number] Accession [UID]: [id number] [[id number]] Received: Jun 22, 2024@13:38 Collection sample: FLUID Collection date: Jun 22, 2024 13:15 Provider: ANGELA HOLDEN Comment on specimen: LLQ ABSCESS, RECEIVED IN ANAEROBIC TRANSPORT VIAL Test(s) ordered: ANAEROBIC CULTURE............. completed: Jun 28, 2024 * BACTERIOLOGY FINAL REPORT => Jun 28, 2024 10:08 TECH CODE: [id number] CULTURE RESULTS: HEAVY GROWTH MIXED ANAEROBES Comment: including the followin+ Bacteroides fragilis 4+ Bacteroides vulgatus 4+ Clostridium innocuum Beta-lactamase negative 4+ Bacteroides caccae 4+ Parvimonas micra 4+ Bacteroides uniformis 4+ Gemella morbillorum 4+ anaerobic small, Gram Positive Rods 4+ Bacteroides thetaiotaomicron Standard workup is now complete. Bacteriology Remark(s): THIS REPORT IS FINAL =--=--=--=--=--=--=--=--=--= --=--=--=--=--=--=--=--=--=- -=--=--=--=--=--=--=-- Performing Laboratory: Bacteriology Report Performed By: [facility] [CLIA# [id number]] [place] [address] [facility] Jun 21, 2024 06:12 PM LR MICROBIOLOGY RE PORT: Reporting Lab: [facility] [IA# [id number]] [place] [address] Accession [UID]: [id number] [[id number]] Received: Jun 21, 2024@18:12 Collection sample: BLOOD [...] -=--=--=--=--=--=--=-- Performing Laboratory: Bacteriology Report Performed By: [facility] [CLIA# [id number]] [place] [address] [facility] Jun 21, 2024 06:11 PM LR MICROBIOLOGY RE PORT: Reporting Lab: [facility] [CLIA# [id number]] [place] [address] Accession [UID]: [id number] [[id number]] Received: Jun 21, 2024@18:11 Collection sample: BLOOD [...] -=--=--=--=--=--=--=-- Performing Laboratory: Bacteriology Report Performed By: [facility] [CLIA# [id number]] [place] [address] [facility]
--- OUTSIDE RECORDS SUMMARY | 2024-08-01 08:00 | XMS_ITS ---
Author Name [facility] [facility] [place] Address [address] [place] [address] Care Team Providers Care Log Snaker Name Role Phone JATINDER CABRERA Primary Care [...] PART A Sep 29, 2016 PART A [id number] [phone] JUDY WEAVER PATIENT Selected Encounter This section includes the information on record at [place] for the Encounter. Date/Time Encounter Type Encounter Description Reason Pro vider Source Jul 17, 2024 01:00 AM Inpatient Visit ADMIN PAT ACTIVTIES ([employer]) SYSTEM,[facility]HE Encounter Template Text not used [...] Chemi stry Order URINALYSIS URINE WC ONCE [facility] Jun 12, 2024 12:00 AM Laboratory - Chemi stry Order BNP PLASMA SP ONCE [facility] Jun 21, 2024 05:45 PM Laboratory - Blood Bank Order TYPE & SCREEN - LAB BLOOD WC [facility] Jul 03, 2024 12:00 AM Laboratory - Blood Bank Order TYPE & SCREEN - LAB BLOOD WC [facility] Jul 16, 2024 12:00 AM Laboratory - Chemi stry Order CBC BLOOD SP ONCE [facility] Jul 17, 2024 12:00 AM Laboratory - Chemi stry Order BASIC METABOLIC PANEL+MG PLASMA SP ONCE [facility] Lab Results: +/- 30 days of [...] Range Comment Jul 21, 2024 10:38 AM [facility] BASIC METABOLIC PANEL+MG Specimen Type: PLASMA No comment entered. Ordering Provider: SARAI GOLDEN Report Released Date/Time: Jul 20, 2024 06:50 PM Reporting Lab: [facility] [address] Performing Lab: [facility] [address] CREATININE 0.8 mg/dL 0.7-1.2 UREA NITROGEN 31 mg/dL H 8-26 GLUCOSE 120 mg/dL H 70-100 SODIUM 125 mmol/L L 136-145 POTASSIUM 4.4 mmol/L 3.5-5.1 CHLORIDE 100 mmol/L 98-107 CO2 17 mmol/L L 22-29 CALCIUM 9.6 mg/dL 8.4-10.2 MAGNESIUM 1.9 mg/dL 1.6-2.6 ANION GAP 8 mmol/L 5-15 .CREAT EGFR(CKD-EPI) >90 >60 Jul 21, 2024 10:38 AM [facility] CBC Specimen Type: BLOOD No comment entered. Ordering Provider: SARAI GOLDEN Report Released Date/Time: Jul 20, 2024 06:50 PM Reporting Lab: [facility] [address] Performing Lab: [facility] [address] WBC 16.0 H 4.0-11.0 RBC 5.16 4.60-6.20 HGB 15.8 g/dL 13.5-17.9 HCT 45.5 41.0-54.0 MCV 88.2 fL 80.0-100.0 MCH 30.6 pg 27.0-33.0 MCHC 34.7 g/dL 32.0-37.5 PLT 428 H 150-400 MPV 10.8 fL 9.1-13.0 RDW 13.6 11.5-14.5 Jul 20, 2024 01:00 PM [facility] SODIUM,URINE RANDOM Specimen Type: URINE No comment entered. Ordering Provider: SARAI GOLDEN Report Released Date/Time: Jul 20, 2024 08:22 AM Reporting Lab: [facility] [address] Performing Lab: [facility] [address] SODIUM,URINE RANDOM <20 mmol/L Jul 20, 2024 01:00 PM [facility] OSMOLALITY,URINE Specimen Type: URINE No comment entered. Ordering Provider: SARAI GOLDEN Report Released Date/Time: Jul 20, 2024 08:22 AM Reporting Lab: [facility] [address] Performing Lab: [facility] [address] OSMOLALITY,URIN E 648 mosm/kg 500-800 Jul 20, 2024 06:45 AM [facility] BASIC METABOLIC PANEL+MG Specimen Type: PLASMA No comment entered. Ordering Provider: SARAI GOLDEN Report Released Date/Time: Jul 19, 2024 06:13 PM Reporting Lab: [facility] [address] Performing Lab: [facility] [address] CREATININE 0.8 mg/dL 0.7-1.2 UREA NITROGEN 36 mg/dL H 8-26 GLUCOSE 111 mg/dL H 70-100 SODIUM 121 mmol/L L 136-145 POTASSIUM 4.1 mmol/L 3.5-5.1 CHLORIDE 99 mmol/L 98-107 CO2 14 mmol/L L 22-29 CALCIUM 9.5 mg/dL 8.4-10.2 MAGNESIUM 1.8 mg/dL 1.6-2.6 ANION GAP 8 mmol/L 5-15 .CREAT EGFR(CKD-EPI) >90 >60 Jul 20, 2024 06:43 AM [facility] CBC & DIFF Specimen Type: BLOOD Comment: Automated Differential Performed Ordering Provider: SARAI GOLDEN Report Released Date/Time: Jul 19, 2024 06:13 PM Reporting Lab: [facility] [address] Performing Lab: [facility] [address] WBC 16.6 H 4.0-11.0 RBC 4.96 4.60-6.20 [...] H 0.0-0.1 Jul 20, 2024 05:30 AM [facility] OSMOLALITY,SERUM Specimen Type: SERUM No comment entered. Ordering Provider: SARAI GOLDEN Report Released Date/Time: Jul 20, 2024 09:47 AM Reporting Lab: [facility] [address] Performing Lab: [facility] [address] OSMOLALITY,SERU M 266 mosm/kg L 276-305 Jul 19, 2024 08:57 AM [facility] BASIC METABOLIC PANEL+MG Specimen Type: PLASMA No comment entered. Ordering Provider: SARAI GOLDEN Report Released Date/Time: Jul 18, 2024 10:24 PM Reporting Lab: [facility] [address] Performing Lab: [facility] [address] CREATININE 1.0 mg/dL 0.7-1.2 UREA NITROGEN 40 mg/dL H 8-26 GLUCOSE 104 mg/dL H 70-100 SODIUM 129 mmol/L L 136-145 POTASSIUM 3.3 mmol/L L 3.5-5.1 CHLORIDE 104 mmol/L 98-107 CO2 16 mmol/L L 22-29 CALCIUM 8.0 mg/dL L 8.4-10.2 MAGNESIUM 1.7 mg/dL 1.6-2.6 ANION GAP 9 mmol/L 5-15 .CREAT EGFR(CKD-EPI) 80 >60 Jul 19, 2024 08:57 AM [facility] CBC Specimen Type: BLOOD No comment entered. Ordering Provider: SARAI GOLDEN Report Released Date/Time: Jul 18, 2024 10:24 PM Reporting Lab: [facility] [address] Performing Lab: [facility] [address] WBC 17.3 H 4.0-11.0 RBC 4.83 4.60-6.20 HGB 14.8 g/dL 13.5-17.9 HCT 42.6 41.0-54.0 MCV 88.2 fL 80.0-100.0 MCH 30.6 pg 27.0-33.0 MCHC 34.7 g/dL 32.0-37.5 PLT 456 H 150-400 MPV 10.8 fL 9.1-13.0 RDW 13.7 11.5-14.5 Jul 17, 2024 06:55 PM [facility] PHOSPHORUS Specimen Type: PLASMA No comment entered. Ordering Provider: SARAI GOLDEN Report Released Date/Time: Jul 17, 2024 01:54 PM Reporting Lab: [facility] [address] Performing Lab: [facility] [address] PHOSPHORUS 2.9 mg/dL 2.3-4.3 Jul 17, 2024 06:55 PM [facility] BASIC METABOLIC PANEL+MG Specimen Type: PLASMA No comment entered. Ordering Provider: SARAI GOLDEN Report Released Date/Time: Jul 17, 2024 01:54 PM Reporting Lab: [facility] [address] Performing Lab: [facility] [address] CREATININE 1.2 mg/dL 0.7-1.2 UREA NITROGEN 62 mg/dL H 8-26 GLUCOSE 116 mg/dL H 70-100 SODIUM 128 mmol/L L 136-145 POTASSIUM 3.8 mmol/L 3.5-5.1 CHLORIDE 100 mmol/L 98-107 CO2 16 mmol/L L 22-29 CALCIUM 9.3 mg/dL 8.4-10.2 MAGNESIUM 2.1 mg/dL 1.6-2.6 ANION GAP 12 mmol/L 5-15 .CREAT EGFR(CKD-EPI) 64 >60 Jul 17, 2024 07:00 AM [facility] CBC & DIFF Specimen Type: BLOOD Comment: Manual Differential Performed Ordering Provider: SARAI GOLDEN Report Released Date/Time: Jul 16, 2024 04:52 PM Reporting Lab: [facility] [address] Performing Lab: [facility] [address] WBC 18.9 H 4.0-11.0 RBC 5.55 4.60-6.20 [...] MORPHOLOGY PRESENT Jul 17, 2024 07:00 AM [facility] ALBUMIN Specimen Type: PLASMA No comment entered. Ordering Provider: SARAI GOLDEN Report Released Date/Time: Jul 16, 2024 12:12 PM Reporting Lab: [facility] [address] Performing Lab: [facility] [address] ALBUMIN 4.3 g/dL 3.5-5.0 Jul 17, 2024 07:00 AM [facility] COMPREHENSIVE METABOLIC PANEL+MG Specimen Type: PLASMA No comment entered. Ordering Provider: SARAI GOLDEN Report Released Date/Time: Jul 16, 2024 04:52 PM Reporting Lab: [facility] [address] Performing Lab: [facility] [address] CREATININE 1.3 mg/dL H 0.7-1.2 UREA NITROGEN [...] L >60 Jul 16, 2024 07:10 PM [facility] LACTIC ACID Specimen Type: PLASMA No comment entered. Ordering Provider: SARAI GOLDEN Report Released Date/Time: Jul 16, 2024 12:12 PM Reporting Lab: [facility] [address] Performing Lab: [facility] [address] LACTIC ACID 0.9 mmol/L 0.5-2.2 Jul 16, 2024 02:14 PM [facility] MRSA SURVL NARES DNA Specimen Type: NARES No comment entered. Ordering Provider: SARAI GOLDEN Report Released Date/Time: Jul 16, 2024 12:12 PM Reporting Lab: [facility] [address] Performing Lab: [facility] [address] MRSA SURVL NARES DNA NEGATIVE Negative Jul 16, 2024 02:10 PM [facility] LACTIC ACID Specimen Type: PLASMA No comment entered. Ordering Provider: SARAI GOLDEN Report Released Date/Time: Jul 16, 2024 12:12 PM Reporting Lab: [facility] [address] Performing Lab: [facility] [address] LACTIC ACID 0.9 mmol/L 0.5-2.2 Jul 16, 2024 02:08 PM [facility] COMPREHENSIVE METABOLIC PANEL+MG Specimen Type: PLASMA No comment entered. Ordering Provider: SARAI GOLDEN Report Released Date/Time: Jul 16, 2024 12:12 PM Reporting Lab: [facility] [address] Performing Lab: [facility] [address] CREATININE 2.0 mg/dL H 0.7-1.2 UREA NITROGEN [...] L >60 Jul 16, 2024 02:08 PM [facility] CBC & DIFF Specimen Type: BLOOD Comment: Manual Differential Performed Ordering Provider: SARAI GOLDEN Report Released Date/Time: Jul 16, 2024 12:12 PM Reporting Lab: [facility] [address] Performing Lab: [facility] [address] WBC 19.7 H 4.0-11.0 RBC 5.39 4.60-6.20 [...] MORPHOLOGY PRESENT Jul 10, 2024 07:16 AM [facility] PHOSPHORUS Specimen Type: PLASMA No comment entered. Ordering Provider: JUANCARLOS ECHOLS Report Released Date/Time: Jul 09, 2024 12:23 PM Reporting Lab: [facility] [address] Performing Lab: [facility] [address] PHOSPHORUS 3.0 mg/dL 2.3-4.3 Jul 10, 2024 07:16 AM [facility] BASIC METABOLIC PANEL+MG Specimen Type: PLASMA No comment entered. Ordering Provider: JUANCARLOS ECHOLS S Report Released Date/Time: Jul 09, 2024 12:23 PM Reporting Lab: [facility] [address] Performing Lab: [facility] [address] CREATININE 0.7 mg/dL 0.7-1.2 UREA NITROGEN 27 mg/dL H 8-26 GLUCOSE 104 mg/dL H 70-100 SODIUM 133 mmol/L L 136-145 POTASSIUM 4.3 mmol/L 3.5-5.1 CHLORIDE 102 mmol/L 98-107 CO2 19 mmol/L L 22-29 CALCIUM 10.1 mg/dL 8.4-10.2 MAGNESIUM 1.9 mg/dL 1.6-2.6 ANION GAP 12 mmol/L 5-15 .CREAT EGFR(CKD-EPI) >90 >60 Jul 10, 2024 07:15 AM [facility] CBC Specimen Type: BLOOD No comment entered. Ordering Provider: JUANCARLOS ECHOLS Report Released Date/Time: Jul 09, 2024 12:23 PM Reporting Lab: [facility] [address] Performing Lab: [facility] [address] WBC 18.8 H 4.0-11.0 RBC 5.08 4.60-6.20 HGB 15.9 g/dL 13.5-17.9 HCT 46.8 41.0-54.0 MCV 92.1 fL 80.0-100.0 MCH 31.3 pg 27.0-33.0 MCHC 34.0 g/dL 32.0-37.5 PLT 479 H 150-400 MPV 10.2 fL 9.1-13.0 RDW 13.7 11.5-14.5 Jul 09, 2024 07:08 AM [facility] CBC Specimen Type: BLOOD No comment entered. Ordering Provider: QUYNH WEISS AV Report Released Date/Time: Jul 08, 2024 06:18 PM Reporting Lab: [facility] [address] Performing Lab: [facility] [address] WBC 15.3 H 4.0-11.0 RBC 4.91 4.60-6.20 HGB 15.1 g/dL 13.5-17.9 HCT 45.7 41.0-54.0 MCV 93.1 fL 80.0-100.0 MCH 30.8 pg 27.0-33.0 MCHC 33.0 g/dL 32.0-37.5 PLT 443 H 150-400 MPV 10.0 fL 9.1-13.0 RDW 13.5 11.5-14.5 Jul 08, 2024 10:50 AM [facility] URINALYSIS Specimen Type: URINE No comment entered. Ordering Provider: KATELYNN PERSON Report Released Date/Time: Jul 08, 2024 08:41 AM Reporting Lab: [facility] [address] Performing Lab: [facility] [address] URINE COLOR YELLOW SPECIFIC GRAVITY >1.050 H [...] NEGATIVE NEGATIVE Jul 08, 2024 09:54 AM [facility] CBC Specimen Type: BLOOD Comment: Specimen received in Lab at: [id number] Ordering Provider: JUANCARLOS ECHOLS Report Released Date/Time: Jul 07, 2024 04:49 PM Reporting Lab: [facility] [address] Performing Lab: [facility] [address] WBC 17.5 H 4.0-11.0 RBC 4.88 4.60-6.20 HGB 14.9 g/dL 13.5-17.9 HCT 45.7 41.0-54.0 MCV 93.6 fL 80.0-100.0 MCH 30.5 pg 27.0-33.0 MCHC 32.6 g/dL 32.0-37.5 PLT 472 H 150-400 MPV 10.2 fL 9.1-13.0 RDW 13.7 11.5-14.5 Jul 08, 2024 09:54 AM [facility] PHOSPHORUS Specimen Type: PLASMA Comment: Specimen received in Lab at: 0952 Ordering Provider: JUANCARLOS ECHOLS Report Released Date/Time: Jul 07, 2024 04:49 PM Reporting Lab: [facility] [address] Performing Lab: [facility] [address] PHOSPHORUS 2.6 mg/dL 2.3-4.3 Jul 08, 2024 09:54 AM [facility] BASIC METABOLIC PANEL+MG Specimen Type: PLASMA Comment: Specimen received in Lab at: 0952 Ordering Provider: JUANCARLOS ECHOLS Report Released Date/Time: Jul 07, 2024 04:49 PM Reporting Lab: [facility] [address] Performing Lab: [facility] [address] CREATININE 0.9 mg/dL 0.7-1.2 UREA NITROGEN 26 mg/dL 8-26 GLUCOSE 128 mg/dL H 70-100 SODIUM 134 mmol/L L 136-145 POTASSIUM 3.4 mmol/L L 3.5-5.1 CHLORIDE 100 mmol/L 98-107 CO2 24 mmol/L 22-29 CALCIUM 9.8 mg/dL 8.4-10.2 MAGNESIUM 1.8 mg/dL 1.6-2.6 ANION GAP 10 mmol/L 5-15 .CREAT EGFR(CKD-EPI) >90 >60 Jul 07, 2024 02:00 PM [facility] C DIFF PANEL Specimen Type: FECES No comment entered. Ordering Provider: JEVON ZAZUETA Report Released Date/Time: Jul 07, 2024 12:26 PM Reporting Lab: [facility] [address] Performing Lab: [facility] [address] C DIFF TOX B GENE PCR NEGATIVE Negative Jul 07, 2024 07:41 AM [facility] PHOSPHORUS Specimen Type: PLASMA No comment entered. Ordering Provider: JEVON ZAZUETA Report Released Date/Time: Jul 06, 2024 03:44 PM Reporting Lab: [facility] [address] Performing Lab: [facility] [address] PHOSPHORUS 3.1 mg/dL 2.3-4.3 Jul 07, 2024 07:41 AM [facility] BASIC METABOLIC PANEL+MG Specimen Type: PLASMA No comment entered. Ordering Provider: JEVON ZAZUETA Report Released Date/Time: Jul 06, 2024 03:44 PM Reporting Lab: [facility] [address] Performing Lab: [facility] [address] CREATININE 0.9 mg/dL 0.7-1.2 UREA NITROGEN 20 mg/dL 8-26 GLUCOSE 157 mg/dL H 70-100 SODIUM 136 mmol/L 136-145 POTASSIUM 3.7 mmol/L 3.5-5.1 CHLORIDE 102 mmol/L 98-107 CO2 21 mmol/L L 22-29 CALCIUM 9.8 mg/dL 8.4-10.2 MAGNESIUM 1.9 mg/dL 1.6-2.6 ANION GAP 13 mmol/L 5-15 .CREAT EGFR(CKD-EPI) >90 >60 Jul 07, 2024 07:40 AM [facility] CBC Specimen Type: BLOOD No comment entered. Ordering Provider: JEVON ZAZUETA Report Released Date/Time: Jul 06, 2024 03:44 PM Reporting Lab: [facility] [address] Performing Lab: [facility] [address] WBC 21.2 H 4.0-11.0 RBC 5.09 4.60-6.20 HGB 15.9 g/dL 13.5-17.9 HCT 48.3 41.0-54.0 MCV 94.9 fL 80.0-100.0 MCH 31.2 pg 27.0-33.0 MCHC 32.9 g/dL 32.0-37.5 PLT 500 H 150-400 MPV 10.3 fL 9.1-13.0 RDW 13.6 11.5-14.5 Jul 06, 2024 07:21 AM [facility] CBC Specimen Type: BLOOD No comment entered. Ordering Provider: JEVON ZAZUETA Report Released Date/Time: Jul 05, 2024 01:22 PM Reporting Lab: [facility] [address] Performing Lab: [facility] [address] WBC 18.0 H 4.0-11.0 RBC 4.83 4.60-6.20 HGB 14.6 g/dL 13.5-17.9 HCT 45.5 41.0-54.0 MCV 94.2 fL 80.0-100.0 MCH 30.2 pg 27.0-33.0 MCHC 32.1 g/dL 32.0-37.5 PLT 368 150-400 MPV 10.4 fL 9.1-13.0 RDW 13.6 11.5-14.5 Jul 06, 2024 07:21 AM [facility] PHOSPHORUS Specimen Type: PLASMA No comment entered. Ordering Provider: JEVON ZAZUETA Report Released Date/Time: Jul 05, 2024 01:22 PM Reporting Lab: [facility] [address] Performing Lab: [facility] [address] PHOSPHORUS 3.6 mg/dL 2.3-4.3 Jul 06, 2024 07:21 AM [facility] BASIC METABOLIC PANEL+MG Specimen Type: PLASMA No comment entered. Ordering Provider: JEVON ZAZUETA Report Released Date/Time: Jul 05, 2024 01:22 PM Reporting Lab: [facility] [address] Performing Lab: [facility] [address] CREATININE 0.7 mg/dL 0.7-1.2 UREA NITROGEN 12 mg/dL 8-26 GLUCOSE 108 mg/dL H 70-100 SODIUM 138 mmol/L 136-145 POTASSIUM 3.4 mmol/L L 3.5-5.1 CHLORIDE 104 mmol/L 98-107 CO2 20 mmol/L L 22-29 CALCIUM 9.3 mg/dL 8.4-10.2 MAGNESIUM 1.9 mg/dL 1.6-2.6 ANION GAP 14 mmol/L 5-15 .CREAT EGFR(CKD-EPI) >90 >60 Jul 05, 2024 07:17 AM [facility] MAGNESIUM Specimen Type: PLASMA No comment entered. Ordering Provider: JUANCARLOS ECHOLS S Report Released Date/Time: Jul 04, 2024 09:39 AM Reporting Lab: [facility] [address] Performing Lab: [facility] [address] MAGNESIUM 2.0 mg/dL 1.6-2.6 Jul 05, 2024 07:17 AM [facility] PHOSPHORUS Specimen Type: PLASMA No comment entered. Ordering Provider: JUANCARLOS ECHOLS S Report Released Date/Time: Jul 04, 2024 09:39 AM Reporting Lab: [facility] [address] Performing Lab: [facility] [address] PHOSPHORUS 2.0 mg/dL L 2.3-4.3 Jul 05, 2024 07:17 AM [facility] BASIC METABOLIC PANEL+MG Specimen Type: PLASMA No comment entered. Ordering Provider: JUANCARLOS ECHOLS S Report Released Date/Time: Jul 04, 2024 09:39 AM Reporting Lab: [facility] [address] Performing Lab: [facility] [address] CREATININE 0.7 mg/dL 0.7-1.2 UREA NITROGEN 12 mg/dL 8-26 GLUCOSE 84 mg/dL 70-100 SODIUM 135 mmol/L L 136-145 POTASSIUM 3.8 mmol/L 3.5-5.1 CHLORIDE 104 mmol/L 98-107 CO2 24 mmol/L 22-29 CALCIUM 9.3 mg/dL 8.4-10.2 MAGNESIUM 2.0 mg/dL 1.6-2.6 ANION GAP 7 mmol/L 5-15 .CREAT EGFR(CKD-EPI) >90 >60 Jul 05, 2024 07:16 AM [facility] CBC Specimen Type: BLOOD No comment entered. Ordering Provider: JUANCARLOS ECHOLS S Report Released Date/Time: Jul 04, 2024 09:39 AM Reporting Lab: [facility] [address] Performing Lab: [facility] [address] WBC 18.3 H 4.0-11.0 RBC 4.49 L 4.60-6.20 HGB 14.1 g/dL 13.5-17.9 HCT 43.4 41.0-54.0 MCV 96.7 fL 80.0-100.0 MCH 31.4 pg 27.0-33.0 MCHC 32.5 g/dL 32.0-37.5 PLT 317 150-400 MPV 10.0 fL 9.1-13.0 RDW 13.9 11.5-14.5 Jul 04, 2024 07:17 AM [facility] BASIC METABOLIC PANEL+MG Specimen Type: PLASMA No comment entered. Ordering Provider: GABINO CAMERON Report Released Date/Time: Jul 03, 2024 06:31 PM Reporting Lab: [facility] [address] Performing Lab: [facility] [address] CREATININE 0.7 mg/dL 0.7-1.2 UREA NITROGEN 16 mg/dL 8-26 GLUCOSE 129 mg/dL H 70-100 SODIUM 137 mmol/L 136-145 POTASSIUM 3.7 mmol/L 3.5-5.1 CHLORIDE 107 mmol/L 98-107 CO2 22 mmol/L 22-29 CALCIUM 9.0 mg/dL 8.4-10.2 MAGNESIUM 1.9 mg/dL 1.6-2.6 ANION GAP 8 mmol/L 5-15 .CREAT EGFR(CKD-EPI) >90 >60 Jul 04, 2024 07:17 AM [facility] PHOSPHORUS Specimen Type: PLASMA No comment entered. Ordering Provider: GABINO CAMERON Report Released Date/Time: Jul 03, 2024 06:31 PM Reporting Lab: [facility] [address] Performing Lab: [facility] [address] PHOSPHORUS 2.8 mg/dL 2.3-4.3 Jul 04, 2024 07:16 AM [facility] CBC Specimen Type: BLOOD No comment entered. Ordering Provider: GABINO CAMERON Report Released Date/Time: Jul 03, 2024 06:31 PM Reporting Lab: [facility] [address] Performing Lab: [facility] [address] WBC 20.6 H 4.0-11.0 RBC 4.63 4.60-6.20 HGB 14.2 g/dL 13.5-17.9 HCT 43.4 41.0-54.0 MCV 93.7 fL 80.0-100.0 MCH 30.7 pg 27.0-33.0 MCHC 32.7 g/dL 32.0-37.5 PLT 329 150-400 MPV 10.4 fL 9.1-13.0 RDW 13.8 11.5-14.5 Jul 04, 2024 07:16 AM [facility] CBC & DIFF Specimen Type: BLOOD Comment: Manual Differential Performed Ordering Provider: GABINO CAMERON Report Released Date/Time: Jul 03, 2024 06:31 PM Reporting Lab: [facility] [address] Performing Lab: [facility] [address] WBC 20.6 H 4.0-11.0 RBC 4.63 4.60-6.20 [...] MORPHOLOGY PRESENT Jul 04, 2024 07:15 AM [facility] BNP Specimen Type: PLASMA No comment entered. Ordering Provider: GABINO CAMERON Report Released Date/Time: Jul 03, 2024 06:31 PM Reporting Lab: [facility] [address] Performing Lab: [facility] [address] BNP 292 pg/mL H <99 Jul 03, 2024 10:32 PM [facility] FINGERSTICK GLUCOSE Specimen Type: BLOOD Comment: Save Result Nurse Notified Ordering Provider: KATELYNN PERSON Report Released Date/Time: Jul 03, 2024 10:50 PM Reporting Lab: [facility] [address] Performing Lab: [facility] [address] FINGERSTICK GLUCOSE 126 mg/dL H 70-100 Jul 03, 2024 05:33 PM [facility] FINGERSTICK GLUCOSE Specimen Type: BLOOD Comment: Save Result Nurse Notified Ordering Provider: KATELYNN PERSON Report Released Date/Time: Jul 03, 2024 05:46 PM Reporting Lab: [facility] [address] Performing Lab: [facility] [address] FINGERSTICK GLUCOSE 141 mg/dL H 70-100 Jul 03, 2024 02:31 PM [facility] POC ABG/ELECTROLYTES Specimen Type: ARTERIAL BLOOD Comment: FIO2 = 97% Patient Temp: 36.0 C Sample Type = ARTERIAL Ordering Provider: MAZIN ARREDONDO Report Released Date/Time: Jul 03, 2024 01:48 PM Reporting Lab: [facility] [address] Performing Lab: [facility] [address] POC PH 7.387 7.35-7.45 POC PCO2 34.4 [...] H 80.0-105.0 Jul 03, 2024 01:05 PM [facility] POC ABG/ELECTROLYTES Specimen Type: ARTERIAL BLOOD Comment: FIO2 = 53% Patient Temp: 36.2 C Sample Type = ARTERIAL Ordering Provider: MAZIN ARREDONDO Report Released Date/Time: Jul 03, 2024 01:48 PM Reporting Lab: [facility] [phone] Performing Lab: [facility] [phone] POC PH 7.280 L 7.35-7.45 POC PCO2 [...] mm[Hg] 80.0-105.0 Jul 03, 2024 06:15 AM [facility] URINALYSIS Specimen Type: URINE No comment entered. Ordering Provider: MARYBETH POWELL Report Released Date/Time: Jun 12, 2024 04:01 PM Reporting Lab: [facility] [phone] Performing Lab: [facility] [phone] URINE COLOR YELLOW SPECIFIC GRAVITY 1.031 1.003-1.03 [...] 250 NEGATIVE Jul 03, 2024 06:13 AM [facility] CBC Specimen Type: BLOOD No comment entered. Ordering Provider: MARYBETH POWELL Report Released Date/Time: Jun 12, 2024 03:59 PM Reporting Lab: [facility] [phone] Performing Lab: [facility] [phone] WBC 15.8 H 4.0-11.0 RBC 5.11 4.60-6.20 HGB 16.1 g/dL 13.5-17.9 HCT 49.1 41.0-54.0 MCV 96.1 fL 80.0-100.0 MCH 31.5 pg 27.0-33.0 MCHC 32.8 g/dL 32.0-37.5 PLT 357 150-400 MPV 9.8 fL 9.1-13.0 RDW 13.7 11.5-14.5 Jun 24, 2024 09:50 AM [facility] BASIC METABOLIC PANEL+MG Specimen Type: PLASMA Comment: Specimen received in Lab at: [id number] Ordering Provider: JEVON ZAZUETA Report Released Date/Time: Jun 23, 2024 06:07 PM Reporting Lab: [facility] [phone] Performing Lab: [facility] [phone] CREATININE 0.8 mg/dL 0.7-1.2 UREA NITROGEN 13 mg/dL 8-26 GLUCOSE 135 mg/dL H 70-100 SODIUM 135 mmol/L L 136-145 POTASSIUM 3.6 mmol/L 3.5-5.1 CHLORIDE 103 mmol/L 98-107 CO2 24 mmol/L 22-29 CALCIUM 9.2 mg/dL 8.4-10.2 MAGNESIUM 1.9 mg/dL 1.6-2.6 ANION GAP 8 mmol/L 5-15 .CREAT EGFR(CKD-EPI) >90 >60 Jun 24, 2024 09:50 AM [facility] CBC Specimen Type: BLOOD Comment: Specimen received in Lab at: [id number] Ordering Provider: JEVON ZAZUETA Report Released Date/Time: Jun 23, 2024 06:07 PM Reporting Lab: [facility] [phone] Performing Lab: [facility] [phone] WBC 15.5 H 4.0-11.0 RBC 4.93 4.60-6.20 HGB 15.2 g/dL 13.5-17.9 HCT 46.5 41.0-54.0 MCV 94.3 fL 80.0-100.0 MCH 30.8 pg 27.0-33.0 MCHC 32.7 g/dL 32.0-37.5 PLT 223 150-400 MPV 11.4 fL 9.1-13.0 RDW 13.9 11.5-14.5 Jun 23, 2024 07:52 AM [facility] COMPREHENSIVE METABOLIC PANEL+MG Specimen Type: PLASMA No comment entered. Ordering Provider: JEVON ZAZUETA Report Released Date/Time: Jun 22, 2024 05:51 PM Reporting Lab: [facility] [phone] Performing Lab: [facility] [phone] CREATININE 0.7 mg/dL 0.7-1.2 UREA NITROGEN 16 [...] >90 >60 Jun 23, 2024 07:52 AM [facility] CBC & DIFF Specimen Type: BLOOD Comment: Automated Differential Performed Ordering Provider: JEVON ZAZUETA Report Released Date/Time: Jun 22, 2024 05:51 PM Reporting Lab: [facility] [phone] Performing Lab: [facility] [phone] WBC 14.9 H 4.0-11.0 RBC 5.09 4.60-6.20 [...] 0.1 0.0-0.1 Jun 22, 2024 06:10 PM [facility] CBC Specimen Type: BLOOD No comment entered. Ordering Provider: JEVON ZAZUETA Report Released Date/Time: Jun 22, 2024 05:51 PM Reporting Lab: [facility] [phone] Performing Lab: [facility] [phone] WBC 16.9 H 4.0-11.0 RBC 5.28 4.60-6.20 HGB 16.9 g/dL 13.5-17.9 HCT 50.4 41.0-54.0 MCV 95.5 fL 80.0-100.0 MCH 32.0 pg 27.0-33.0 MCHC 33.5 g/dL 32.0-37.5 PLT 223 150-400 MPV 10.9 fL 9.1-13.0 RDW 14.0 11.5-14.5 Jun 22, 2024 06:10 PM [facility] COMPREHENSIVE METABOLIC PANEL+MG Specimen Type: PLASMA No comment entered. Ordering Provider: JEVON ZAZUETA Report Released Date/Time: Jun 22, 2024 05:51 PM Reporting Lab: [facility] [address] Performing Lab: [facility] [address] CREATININE 0.7 mg/dL 0.7-1.2 UREA NITROGEN 17 [...] >90 >60 Jun 21, 2024 06:48 PM [facility] URINALYSIS Specimen Type: URINE No comment entered. Ordering Provider: DELIA MARTINEZ Report Released Date/Time: Jun 21, 2024 05:45 PM Reporting Lab: [facility] [address] Performing Lab: [facility] [address] URINE COLOR YELLOW SPECIFIC GRAVITY 1.041 H [...] 500 NEGATIVE Jun 21, 2024 05:34 PM [facility] POC CREATININE Specimen Type: BLOOD No comment entered. Ordering Provider: DELIA MARTINEZ Report Released Date/Time: Jun 21, 2024 06:07 PM Reporting Lab: [facility] [address] Performing Lab: [facility] [address] POC CREATININE 1.1 mg/dL 0.6-1.3 Jun 21, 2024 05:30 PM [facility] POC ABG/LACTATE Specimen Type: VENOUS BLOOD No comment entered. Ordering Provider: DELIA MARTINEZ Report Released Date/Time: Jun 21, 2024 06:07 PM Reporting Lab: [facility] [address] Performing Lab: [facility] [address] POC PH 7.470 H 7.31-7.41 POC PCO2 31.2 mm[Hg] L 41.00-51 .0 0 POC PO2 46 mm[Hg] H 35.0-40.0 POC TCO2 24 mmol/L 24.0-29.0 POC HCO3 22.7 mmol/L L 23.0-28.0 POC BE ECT -1 mmol/L POC SO2 85 H 70-75 POC LACTATE 1.85 mmol/L 0.90-1.70 Jun 21, 2024 05:24 PM [facility] PROTHROMBIN TIME/INR Specimen Type: PLASMA No comment entered. Ordering Provider: DELIA MARTINEZ Report Released Date/Time: Jun 21, 2024 05:30 PM Reporting Lab: [facility] [address] Performing Lab: [facility] [address] .INR 1.2 H 0.8-1.1 .PT 13.9 s H 9.4-12.5 Jun 21, 2024 05:24 PM [facility] LIPASE Specimen Type: PLASMA No comment entered. Ordering Provider: DELIA MARTINEZ Report Released Date/Time: Jun 21, 2024 05:30 PM Reporting Lab: [facility] [address] Performing Lab: [facility] [address] LIPASE 32 U/L <60 Jun 21, 2024 05:24 PM [facility] EXTRA GOLD GEL TUBE Specimen Type: SERUM No comment entered. Ordering Provider: DELIA MARTINEZ Report Released Date/Time: Jun 21, 2024 05:41 PM Reporting Lab: [facility] [address] Performing Lab: [facility] [address] EXTRA GOLD GEL TUBE RECEIVED Jun 21, 2024 05:24 PM [facility] COMPREHENSIVE METABOLIC PANEL+MG Specimen Type: PLASMA No comment entered. Ordering Provider: DELIA MARTINEZ Report Released Date/Time: Jun 21, 2024 05:30 PM Reporting Lab: [facility] [address] Performing Lab: [facility] [address] CREATININE 0.9 mg/dL 0.7-1.2 UREA NITROGEN 29 [...] mg/dL <0.5 Jun 21, 2024 05:24 PM [facility] CBC & DIFF Specimen Type: BLOOD Comment: Manual Differential Performed Ordering Provider: DELIA MARTINEZ Report Released Date/Time: Jun 21, 2024 05:30 PM Reporting Lab: [facility] [address] Performing Lab: [facility] [address] WBC 21.3 H 4.0-11.0 RBC 5.48 4.60-6.20 [...] Source Jul 17, 2024 11:53 PM 6 [facility] Jul 17, 2024 10:52 PM 8 [facility] Jul 17, 2024 02:47 PM 7 [facility] Jul 17, 2024 07:09 AM 7 [facility] Social History: Smoking [...] 15, 2024 08:30 AM VA-TOBACCO FORMER USER [facility] Tobacco Use History This section includes a history of the smoking, or tobacco-related health factors, that were collected on or before the date of the Encounter. The data comes from the [place] facility where the Encounter took place. Date/Time Smoking Status/Tobacco Use Comment F acility May 15, 2024 08:30 AM VA-TOBACCO QUIT 15 YRS OR MORE [facility] May 06, 2023 11:30 AM VA-TOBACCO FORMER USER [facility] May 06, 2023 11:30 AM VA-TOBACCO QUIT 15 YRS OR MORE [facility] Jun 04, 2022 09:00 AM VA-TOBACCO FORMER USER [facility] Jun 04, 2022 09:00 AM VA-TOBACCO QUIT 15 YRS OR MORE [facility] Jul 10, 2021 08:00 AM VA-TOBACCO FORMER USER [facility] Jul 10, 2021 08:00 AM VA-TOBACCO QUIT 5 TO < 15 YRS [facility] May 23, 2020 08:30 AM VA-TOBACCO FORMER USER [facility] May 23, 2020 08:30 AM VA-TOBACCO QUIT 5 TO < 15 YRS [facility] Mar 20, 2019 04:03 PM VA-TOBACCO FORMER USER [facility] Mar 20, 2019 04:03 PM VA-TOBACCO QUIT 5 TO < 15 YRS [facility] Mar 21, 2018 08:13 AM FORMER TOBACCO USER 7Y OR GREATE R [facility] Feb 24, 2017 09:24 AM FORMER TOBACCO USER 7Y OR GREATE R [facility] January 07, 2016 08:01 AM FORMER TOBACCO USE >1Y <7Y [facility] Feb 03, 2015 07:58 AM FORMER TOBACCO USE <1Y [facility] Feb 26, 2014 08:41 AM CURRENT TOBACCO USER [facility] May 13, 2011 01:45 PM CURRENT TOBACCO USER [facility] Advance Directives: All historical and current [...] PM CHEST 1 VIEW: FLACA WEAVER YAMIL [id number] -1950 M Exm Date: JUL 18, 2024@18:15 Req Phys: LEISA GOLDEN Pat Loc: 3ES/07-18-2024@19:00 Img Loc: MAIN X-RAY Service: [facility] [place] [address] (Case [id number] COMPLETE) CHEST 1 VIEW (RAD Detailed) CPT:73622 Proc Modifiers : PORTABLE EXAM Reason for Study: SOB Clinical History: IS NOT under investigation for COVID-19 or is COVID-19 negative 73 yo with SOB Responsible provider name and phone number to notify for critical findings if other than user placing the order and pager listed below: User placing orders pager: [phone] LAST CREATININE 1.2 (07/17/24) Report Status: Verified Date Reported: JUL 18, 2024 Date Verified: JUL 18, 2024 Rotary Drill Rig Operator E-Sig:/ES/CARLOS A CUNNINGHAM DO Report: EXAMINATION: CHEST 1 VIEW Reason for Study: SOB [facility] [place] IS NOT under investigation for COVID-19 or is COVID-19 negative 73 yo with SOB Responsible provider name and phone number to notify for critical findings if other than user placing the order and pager listed below: User placing orders pager: [phone] LAST CREATININE 1.2 (07/17/24) SOB TECHNIQUE: Single [...] Interpreting Staff: CARLOS A CUNNINGHAM DO, RADIOLOGIST (Rotary Drill Rig Operator) /KMB CARLOS A CUNNINGHAM [facility] Jul 16, 2024 07:49 AM [facility] CT ABDOMEN/PELVIS: FLACA WEAVER [id number] -1950 M Exm Date: JUL 16, 2024@07:49 Req Phys: JATINDER CABRERA Loc: 07-17-2024@09:02 Img Loc: OUTSOURCE CT Service: Unknown (Case [id number] COMPLETE) [facility] CT ABDOMEN/PELVIS (CT Detailed) CPT:76541 Reason for Study: outside study Clinical History: [...] Diagnostic Code: VERIFIED BY: / *ELECTRONICALLY FILED* [facility] Jul 13, 2024 09:41 AM [facility] CT ABDOMEN/PELVIS: FLACA WEAVER [id number] -1950 M Exm Date: JUL 13, 2024@09:41 Req Phys: JATINDER CABRERA Loc: 07-17-2024@09:08 Img Loc: OUTSOURCE CT Service: Unknown (Case [id number] COMPLETE) [facility] ABDOMEN/PELVIS (CT Detailed) CPT:99454 Reason for Study: outside study Clinical History: [...] Diagnostic Code: VERIFIED BY: / *ELECTRONICALLY FILED* [facility] Jul 08, 2024 10:09 AM CHEST 2 VIEWS PA AND LAT: FLACA WEAVER [id number] -1950 M Exm Date: JUL 08, 2024@10:09 Req Phys: KATELYNN PERSON Pat Loc: 2KG/07-08-2024@11:49 Img Loc: MAIN X-RAY Service: [place] [address] (Case 24 COMPLETE) CHEST 2 VIEWS PA AND LAT (RAD Detailed) CPT:12546 Reason for Study: Uptrending WBC, POD 5 Clinical History: [facility] [place] IS NOT under investigation for COVID-19 or is COVID-19 negative POD 5, work up for uptrending wbc Responsible provider name and phone number to notify for critical findings if other than user placing the order and pager listed below: User placing orders pager: Katelynn Person LAST CREATININE 0.9 (07/07/24) Report Status: Verified Date Reported: JUL 08, 2024 Date Verified: JUL 08, 2024 Rotary Drill Rig Operator E-Sig: Report: CHEST 2 VIEWS PA [...] cardiopulmonary disease. READING PHYSICIAN: Sarbjit Vaughn M.D. -[phone] 07/08/2024 12:46 [facility] National Teleradiology Program [phone] (For Medical Practitioner Use Only) Attention Patients / Veterans: If you have questions or concerns about these test results, please contact your ordering provider or primary care team. Primary Interpreting Staff: RADIOLOGY,OUTSIDE SERVICE, Staff Physician / RADIOLOGY,OUTSIDE SERVICE [facility] Jul 08, 2024 10:[address] (AP) ABDOMEN/PELVIS W CONTRAST: FLACA WEAVER YAMIL [id number] -1950 M Exm Date: JUL 08, 2024@10:00 Req Phys: KATELYNN PERSON Loc: 2KG/07-08-2024@12:07 Img Loc: CT IMAGING Service: [place] [address] (Case [id number] COMPLETE) CT (AP) ABDOMEN/PELVIS W CONTRAST(CT Detailed) CPT:75169 Contrast Media : Non-ionic Iodinated Reason for [...] information of the responsible staff physician. Ramsey Mauriec LAST 3: Collection DT Specimen Test Name Result Units Ref Range 07/07/2024 05:30 PLASMA CREATININE 0.9 mg/dL 0.7 - 1.2 07/06/2024 05:30 PLASMA CREATININE 0.7 mg/dL 0.7 - 1.2 07/05/2024 05:30 PLASMA CREATININE 0.7 mg/dL 0.7 - 1.2 07/07/2024 05:30 PLASMA .CREAT EGFR(CKD-E >90 Ref: >=60 07/06/2024 05:30 PLASMA .CREAT EGFR(CKD-E >90 Ref: >=60 07/05/2024 05:30 PLASMA .CREAT EGFR(CKD-E >90 Ref: >=60 Allergies: ([place] only) TERAZOSIN (Mar 13, 2015) Report Status: Verified Date Reported: JUL 08, 2024 Date Verified: JUL 08, 2024 Rotary Drill Rig Operator E-Sig: Report: CT (AP) ABDOMEN/PELVIS W [...] as noted above READING PHYSICIAN: Celestino Blanc -[phone] 07/08/2024 13:04 [facility] National Teleradiology Program [phone] (For Medical Practitioner Use Only) Attention Patients / Veterans: If you have questions or concerns about these test results, please contact your ordering provider or primary care team. Primary Interpreting Staff: RADIOLOGY,OUTSIDE SERVICE, Staff Physician / RADIOLOGY,OUTSIDE SERVICE [facility] Jun 22, 2024 11:49 AM ABSCESS DRAIN PLACEMENT PERITONEAL (P): FLACA WEAVER [id number] -1950 M Exm Date: JUN 22, 2024@11:49 Req Phys: ADINAANGELA Maeve Pat Loc: [facility]/06-22-2024@17:14 Img Loc: INTERVENTIONAL RADIOLOGY Service: [place] [address] (Case [id number] COMPLETE) IR PERITONEAL/RETROPERITONEAL PER(ANI Detailed) CPT:48833 Reason for Study: diverticulitis with abscess (Case 3570 COMPLETE) IR MOD SEDATION 10-22 MIN (ANI Detailed) CPT:64969 Clinical History: [facility] [place] IS NOT under investigation for COVID-19 or is COVID-19 negative 73 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 please place abscess drain. Contact number for responsible provider who can be reached for any questions or notifications of critical findings: [phone] n/a LAST CREATININE 0.9 (06/21/24) Report Status: Verified Date Reported: JUN 22, 2024 Date Verified: JUN 22, 2024 Rotary Drill Rig Operator E-Sig:/ES/LISA PENDLETON MD Report: PROCEDURES: Placement [...] real-time CT fluoroscopy, a 5 [place] [employer] centesis catheter was advanced into the collection [...] Primary Interpreting Staff: LISA PENDLETON MD, RADIOLOGIST (Rotary Drill Rig Operator) /JRT LISA PENDLETON [facility] Jun 22, 2024 11:[address] NEEDLE PLACEMENT (P): MEGFLACA LOBO [id number] -1950 M Exm Date: JUN 22, 2024@11:48 Req Phys: ANGELA HOLDEN [facility] Loc: [facility]/06-22-2024@17:14 Im Loc: CT IMAGING Service: [place] [address] (Case [id number] COMPLETE) CT SCAN FOR NEEDLE PLACEMENT (CT Detailed) CPT:03116 Reason for Study: l pelvic abscess drain Clinical History: Report Status: Verified Date Reported: JUN 22, 2024 Date Verified: JUN 22, 2024 Rotary Drill Rig Operator E-Sig:/ES/LISA PENDLETON MD Report: PROCEDURES: Placement [...] real-time CT fluoroscopy, a 5 [place] [employer] catheter was advanced into the collection in [...] Primary Interpreting Staff: LISA PENDLETON MD, RADIOLOGIST (Rotary Drill Rig Operator) /JRT LISA PENDLETON [facility] Jun 21, 2024 06:[address] (AP) ABDOMEN/PELVIS (P): FLACA WEAVER [id number] -1950 M Exm Date: JUN 21, 2024@18:09 Req Phys: DELIA MARTINEZ Loc: [facility] EMERGENCY [facility]PT WALK-IN (Re Img Loc: CT IMAGING Service: [place] [address] (Case [id number] COMPLETE) CT (AP) ABDOMEN/PELVIS W CONTRAST(CT Detailed) CPT:30468 Contrast Media : Non-ionic Iodinated Reason for [...] PLASMA .CREAT EGFR(CKD-E >90 Ref: >=60 Allergies: ([place] only) TERAZOSIN (Mar 13, 2015) Defer [...] 21, 2024 Date Verified: JUN 21, 2024 Rotary Drill Rig Operator E-Sig:/ALEXI/CARLOS A CUNNINGHAM DO Report: EXAMINATION: [...] Interpreting Staff: CARLOS A CUNNINGHAM DO, RADIOLOGIST (Rotary Drill Rig Operator) /CARLOS A ROWELL [facility] Pathology Reports: +/- 30 days of [...] PM LR MICROBIOLOGY RE PORT: Reporting Lab: [facility] [CLIA# [id number]] [place] [address] Accession [UID]: [id number] [[id number]] Received: Jul 16, 2024@14:41 Collection sample: BLOOD Collection date: Jul 16, 2024 14:07 Provider: LEISA GOLDEN Comment on specimen: R AC, RECEIVED 2 BLOOD CULTURE BOTTLES Test(s) ordered: CULTURE & SUSCEPTIBILITY...... completed: Jul 22, 2024 * BACTERIOLOGY FINAL REPORT => Jul 22, 2024 13:39 TECH CODE: 35177 CULTURE RESULTS: NO GROWTH 5 DAYS Bacteriology Remark(s): THIS REPORT IS FINAL =--=--=--=--=--=--=--=--=--= --=--=--=--=--=--=--=--=--=- -=--=--=--=--=--=--=-- Performing Laboratory: Bacteriology Report Performed By: [facility] [CLIA# [id number]] [place] [address] [facility] Jul 16, 2024 01:54 PM LR MICROBIOLOGY RE PORT: Reporting Lab: [facility] [IA# [id number]] [place] [address] Accession [UID]: [id number] [[id number]] Received: Jul 16, 2024@14:41 Collection sample: BLOOD Collection date: Jul 16, 2024 13:54 Provider: LEISA GOLDEN Comment on specimen: L AC, RECEIVED 2 BLOOD CULTURE BOTTLES Test(s) ordered: CULTURE & SUSCEPTIBILITY...... completed: Jul 22, 2024 * BACTERIOLOGY FINAL REPORT => Jul 22, 2024 13:39 TECH CODE: [id number] CULTURE RESULTS: NO GROWTH 5 DAYS Bacteriology Remark(s): THIS REPORT IS FINAL =--=--=--=--=--=--=--=--=--= --=--=--=--=--=--=--=--=--=- -=--=--=--=--=--=--=-- Performing Laboratory: Bacteriology Report Performed By: [facility] [IA# [id number]] [place] [address] [facility] Jul 03, 2024 05:59 AM LR SURGICAL PATHOL OGY REPORT: LOCAL TITLE: LR SURGICAL PATHOLOGY REPORT STANDARD TITLE: PATHOLOGY REPORT DATE OF NOTE: JUL 06, 2024@10:40:48 ENTRY DATE: JUL 06, 2024@10:40:48 AUTHOR: EDUARDO PALOMARES EXP COSIGNER: URGENCY: STATUS: COMPLETED $APHDR Reporting Lab: [facility] [CLIA# [id number]] [place] [address] - - - - - - - [...] - PATHOLOGY REPORT Accession No. [id number] - - - - - - - [...] - PATHOLOGY REPORT Accession No. [id number] - - - - - - - [...] Second circumferential surgical margin, en face; E-F: Laborer [place] diverticula; G: Laborer [place] section of mesentery; H: Random account services representative section of additional adipose tissue [...] colonic tissue ring, bisected transversely. [facility]. [facility]: Microscopic examination performed. DIAGNOSIS: 1. Colon, sigmoid, sigmoidectomy-- - Diverticulosis with perforation and focal abscess formation 2. Colon, anastomotic rings, excision-- - Viable colonic mucosa without diagnostic abnormality /es/ EDUARDO PALOMARES MD STAFF PATHOLOGIST Signed Jul 06, 2024@10:40 Performing Laboratory: Surgical Pathology Report Performed By: [facility] [CLIA# [id number]] [place] [address] $FTR - - - - - - [...] - - FLACA WEAVER STANDARD FORM 515 ID:[id number] SEX:M :1950 AGE: 73 LOC:68810 ADM:Jun DX:DIVERTICULITIS PCP: Jatinder Cabrera /alexi/ EDUARDO PALOMARES MD STAFF PATHOLOGIST Signed: 07/06/2024 10:40 EDUARDO PALOMARES [facility] Jun 22, 2024 01:15 PM LR MICROBIOLOGY RE PORT: Reporting Lab: [facility] [CLIA# [id number]] [place] [address] Accession [UID]: [id number] [[id number]] Received: Jun 22, 2024@13:38 Collection sample: FLUID Collection date: Jun 22, 2024 13:15 Provider: ANGELA HOLDEN Comment on specimen: LLQ ABSCESS, RECEIVED IN ANAEROBIC TRANSPORT VIAL Test(s) ordered: GRAM STAIN.................... completed: Jun 22, 2024 15:03 CULTURE & SUSCEPTIBILITY...... completed: Jun 25, 2024 * BACTERIOLOGY FINAL REPORT => Jun 25, 2024 10:56 TECH CODE: [id number] GRAM STAIN: DIRECT SMEAR of specimen before [...] -=--=--=--=--=--=--=-- Performing Laboratory: Bacteriology Report Performed By: [facility] [CLIA# [id number]] [place] [address] [facility] Jun 22, 2024 01:15 PM LR MICROBIOLOGY RE PORT: Reporting Lab: [facility] [CLIA# [id number]] [place] [address] Accession [UID]: [id number] [[id number]] Received: Jun 22, 2024@13:38 Collection sample: FLUID Collection date: Jun 22, 2024 13:15 Provider: ANGELA HOLDEN Comment on specimen: LLQ ABSCESS, RECEIVED IN ANAEROBIC TRANSPORT VIAL Test(s) ordered: ANAEROBIC CULTURE............. completed: Jun 28, 2024 * BACTERIOLOGY FINAL REPORT => Jun 28, 2024 10:08 TECH CODE: [id number] CULTURE RESULTS: HEAVY GROWTH MIXED ANAEROBES Comment: including the followin+ Bacteroides fragilis 4+ Bacteroides vulgatus 4+ Clostridium innocuum Beta-lactamase negative 4+ Bacteroides caccae 4+ Parvimonas micra 4+ Bacteroides uniformis 4+ Gemella morbillorum 4+ anaerobic small, Gram Positive Rods 4+ Bacteroides thetaiotaomicron Standard workup is now complete. Bacteriology Remark(s): THIS REPORT IS FINAL =--=--=--=--=--=--=--=--=--= --=--=--=--=--=--=--=--=--=- -=--=--=--=--=--=--=-- Performing Laboratory: Bacteriology Report Performed By: [facility] [CLIA# [id number]] [place] [address] [facility] Jun 21, 2024 06:12 PM LR MICROBIOLOGY RE PORT: Reporting Lab: [facility] [CLIA# [id number]] [place] [address] Accession [UID]: [id number] [[id number]] Received: Jun 21, 2024@18:12 Collection sample: BLOOD [...] -=--=--=--=--=--=--=-- Performing Laboratory: Bacteriology Report Performed By: [facility] [CLIA# [id number]] [place] [address] [facility] Jun 21, 2024 06:11 PM LR MICROBIOLOGY RE PORT: Reporting Lab: [facility] [CLIA# [id number]] [place] [address] Accession [UID]: [id number] [[id number]] Received: Jun 21, 2024@18:11 Collection sample: BLOOD [...] -=--=--=--=--=--=--=-- Performing Laboratory: Bacteriology Report Performed By: [facility] [CLIA# [id number]] [place] [address] [facility] Encounter Notes: All associated encounter notes This section contains the clinical notes associated to the Encounter. Date/Time Encounter Note(s) Provider Source Jul 17, 2024 01:00 AM CRITICAL CARE UNIT NOTE: LOCAL TITLE: [facility] INPATIENT FLOWSHEET STANDARD TITLE: CRITICAL CARE UNIT NOTE DATE OF NOTE: JUL 17, 2024@01:00 ENTRY DATE: JUL 18, 2024@14:34:28 AUTHOR: KELLY WINKLER EXP COSIGNER: URGENCY: STATUS: COMPLETED This is a place aranda only. Please see [employer] to view document. /es/ [employer] SYSTEM ICU DOCUMENT IMPORT Signed: 07/18/2024 14:34 KELLY WINKLER [facility] Jul 17, 2024 01:00 AM CRITICAL CARE UNIT NOTE: LOCAL TITLE: [facility] RESPIRATORY THERAPY FLOWSHEET STANDARD TITLE: CRITICAL CARE UNIT NOTE DATE OF NOTE: JUL 17, 2024@01:00 ENTRY DATE: JUL 18, 2024@15:03:35 AUTHOR: SYSTEM,[employer]IS[employer]ARK EXP COSIGNER: URGENCY: STATUS: COMPLETED This is a place aranda only. Please see [employer] to view document. /es/ [employer] SYSTEM ICU DOCUMENT IMPORT Signed: 07/18/2024 15:03 PETERSONCIS-ARK [facility]
--- OUTSIDE RECORDS SUMMARY | 2024-08-01 08:00 | XMS_ITS ---
[place] DAILY HOSPITALIZATION DATA [facility] Encounter Summary Created on: August 01, 2024 FLACA WEAVER : 1950 Sex: Male Author Name [facility] [facility] [place] Address [address] [place] [address] Care Team Providers Care Recycle Driver Name Role Phone JATINDER CABRERA Primary [...] PART A Sep 29, 2016 PART A [id number] [phone] JUDY WEAVER PATIENT Selected Encounter This section includes the information on [place] at [place] for the Encounter. Date/Time Encounter Type Encounter Description Reason Pro vider Source Jul 18, 2024 03:24 PM Inpatient Visit DAILY HOSPITALIZATION DATA IHE [...] Chemi stry Order BNP PLASMA SP ONCE [facility] Jun 21, 2024 05:45 PM Laboratory - Blood Bank Order TYPE & SCREEN - LAB BLOOD WC [facility] Jul 03, 2024 12:00 AM Laboratory - Blood Bank Order TYPE & SCREEN - LAB BLOOD WC [facility] Jul 16, 2024 12:00 AM Laboratory - Chemi stry Order CBC BLOOD SP ONCE [facility] Jul 17, 2024 12:00 AM Laboratory - Chemi stry Order BASIC METABOLIC PANEL+MG PLASMA SP ONCE [facility] Lab Results: +/- 30 days of [...] Jul 20, 2024 06:50 PM Reporting Lab: [facility] [address] Performing Lab: [facility] [address] CREATININE 0.8 mg/dL 0.7-1.2 UREA NITROGEN 31 [...] Jul 20, 2024 06:50 PM Reporting Lab: [facility] [address] Performing Lab: [facility] [address] WBC 16.0 H 4.0-11.0 RBC 5.16 4.60-6.20 [...] Jul 20, 2024 08:22 AM Reporting Lab: [facility] [address] Performing Lab: [facility] [address] SODIUM,URINE RANDOM <20 mmol/L Jul 20, 2024 01:00 PM [facility] OSMOLALITY,URINE Specimen Type: URINE No comment entered. Ordering Provider: SARAI GOLDEN Report Released Date/Time: Jul 20, 2024 08:22 AM Reporting Lab: [facility] [address] Performing Lab: [facility] [address] OSMOLALITY,URIN E 648 mosm/kg 500-800 Jul 20, 2024 06:45 AM [facility] BASIC METABOLIC PANEL+MG Specimen Type: PLASMA No comment entered. Ordering Provider: SARAI GOLDEN Report Released Date/Time: Jul 19, 2024 06:13 PM Reporting Lab: [facility] [address] Performing Lab: [facility] [address] CREATININE 0.8 mg/dL 0.7-1.2 UREA NITROGEN 36 [...] Jul 19, 2024 06:13 PM Reporting Lab: [facility] [address] Performing Lab: [facility] [address] WBC 16.6 H 4.0-11.0 RBC 4.96 4.60-6.20 [...] Jul 20, 2024 09:47 AM Reporting Lab: [facility] [address] Performing Lab: [facility] [address] OSMOLALITY,SERU M 266 mosm/kg L 276-305 Jul 19, 2024 08:57 AM [facility] BASIC METABOLIC PANEL+MG Specimen Type: PLASMA No comment entered. Ordering Provider: SARAI GOLDEN Report Released Date/Time: Jul 18, 2024 10:24 PM Reporting Lab: [facility] [address] Performing Lab: [facility] [address] CREATININE 1.0 mg/dL 0.7-1.2 UREA NITROGEN 40 [...] Jul 18, 2024 10:24 PM Reporting Lab: [facility] [address] Performing Lab: [facility] [address] WBC 17.3 H 4.0-11.0 RBC 4.83 4.60-6.20 [...] Jul 17, 2024 01:54 PM Reporting Lab: [facility] [address] Performing Lab: [facility] [address] PHOSPHORUS 2.9 mg/dL 2.3-4.3 Jul 17, 2024 06:55 PM [facility] BASIC METABOLIC PANEL+MG Specimen Type: PLASMA No comment entered. Ordering Provider: SARAI GOLDEN Report Released Date/Time: Jul 17, 2024 01:54 PM Reporting Lab: [facility] [address] Performing Lab: [facility] [address] CREATININE 1.2 mg/dL 0.7-1.2 UREA NITROGEN 62 [...] Jul 16, 2024 04:52 PM Reporting Lab: [facility] [address] Performing Lab: [facility] [address] WBC 18.9 H 4.0-11.0 RBC 5.55 4.60-6.20 [...] Jul 16, 2024 12:12 PM Reporting Lab: [facility] [address] Performing Lab: [facility] [address] ALBUMIN 4.3 g/dL 3.5-5.0 Jul 17, 2024 07:00 AM [facility] COMPREHENSIVE METABOLIC PANEL+MG Specimen Type: PLASMA No comment entered. Ordering Provider: SARAI GOLDEN Report Released Date/Time: Jul 16, 2024 04:52 PM Reporting Lab: [facility] [address] Performing Lab: [facility] [address] CREATININE 1.3 mg/dL H 0.7-1.2 UREA NITROGEN [...] Jul 16, 2024 12:12 PM Reporting Lab: [facility] [address] Performing Lab: [facility] [address] LACTIC ACID 0.9 mmol/L 0.5-2.2 Jul 16, 2024 02:14 PM [facility] MRSA SURVL NARES DNA Specimen Type: NARES No comment entered. Ordering Provider: SARAI GOLDEN Report Released Date/Time: Jul 16, 2024 12:12 PM Reporting Lab: [facility] [address] Performing Lab: [facility] [address] MRSA SURVL NARES DNA NEGATIVE Negative Jul 16, 2024 02:10 PM [facility] LACTIC ACID Specimen Type: PLASMA No comment entered. Ordering Provider: SARAI GOLDEN Report Released Date/Time: Jul 16, 2024 12:12 PM Reporting Lab: [facility] [address] Performing Lab: [facility] [address] LACTIC ACID 0.9 mmol/L 0.5-2.2 Jul 16, 2024 02:08 PM [facility] COMPREHENSIVE METABOLIC PANEL+MG Specimen Type: PLASMA No comment entered. Ordering Provider: SARAI GOLDEN Report Released Date/Time: Jul 16, 2024 12:12 PM Reporting Lab: [facility] [address] Performing Lab: [facility] [address] CREATININE 2.0 mg/dL H 0.7-1.2 UREA NITROGEN [...] Jul 16, 2024 12:12 PM Reporting Lab: [facility] [address] Performing Lab: [facility] [address] WBC 19.7 H 4.0-11.0 RBC 5.39 4.60-6.20 [...] PM Reporting Lab: [facility] [address] Performing Lab: [facility] [address] PHOSPHORUS 3.0 mg/dL 2.3-4.3 Jul 10, 2024 07:16 AM [facility] BASIC METABOLIC PANEL+MG Specimen Type: PLASMA No comment entered. Ordering Provider: JUANCARLOS ECHOLS S Report Released Date/Time: Jul 09, 2024 12:23 PM Reporting Lab: [facility] [address] Performing Lab: [facility] [address] CREATININE 0.7 mg/dL 0.7-1.2 UREA NITROGEN 27 [...] PM Reporting Lab: [facility] [address] Performing Lab: [facility] [address] WBC 18.8 H 4.0-11.0 RBC 5.08 4.60-6.20 [...] PM Reporting Lab: [facility] [address] Performing Lab: [facility] [address] WBC 15.3 H 4.0-11.0 RBC 4.91 4.60-6.20 [...] AM Reporting Lab: [facility] [address] Performing Lab: [facility] [address] URINE COLOR YELLOW SPECIFIC GRAVITY >1.050 H [...] PM Reporting Lab: [facility] [address] Performing Lab: [facility] [address] WBC 17.5 H 4.0-11.0 RBC 4.88 4.60-6.20 [...] PM Reporting Lab: [facility] [address] Performing Lab: [facility] [address] PHOSPHORUS 2.6 mg/dL 2.3-4.3 Jul 08, 2024 09:54 AM [facility] BASIC METABOLIC PANEL+MG Specimen Type: PLASMA Comment: Specimen received in Lab at: [id number] Ordering Provider: JUANCARLOS ECHOLS Report Released Date/Time: Jul 07, 2024 04:49 PM Reporting Lab: [facility] [address] Performing Lab: [facility] [address] CREATININE 0.9 mg/dL 0.7-1.2 UREA NITROGEN 26 [...] PM Reporting Lab: [facility] [address] Performing Lab: [facility] [address] C DIFF TOX B GENE PCR NEGATIVE Negative Jul 07, 2024 07:41 AM [facility] PHOSPHORUS Specimen Type: PLASMA No comment entered. Ordering Provider: JEVON ZAZUETA Report Released Date/Time: Jul 06, 2024 03:44 PM Reporting Lab: [facility] [address] Performing Lab: [facility] [address] PHOSPHORUS 3.1 mg/dL 2.3-4.3 Jul 07, 2024 07:41 AM [facility] BASIC METABOLIC PANEL+MG Specimen Type: PLASMA No comment entered. Ordering Provider: JEVON ZAZUETA Report Released Date/Time: Jul 06, 2024 03:44 PM Reporting Lab: [facility] [address] Performing Lab: [facility] [address] CREATININE 0.9 mg/dL 0.7-1.2 UREA NITROGEN 20 [...] PM Reporting Lab: [facility] [address] Performing Lab: [facility] [address] WBC 21.2 H 4.0-11.0 RBC 5.09 4.60-6.20 [...] PM Reporting Lab: [facility] [address] Performing Lab: [facility] [address] WBC 18.0 H 4.0-11.0 RBC 4.83 4.60-6.20 [...] PM Reporting Lab: [facility] [address] Performing Lab: [facility] [address] PHOSPHORUS 3.6 mg/dL 2.3-4.3 Jul 06, 2024 07:21 AM [facility] BASIC METABOLIC PANEL+MG Specimen Type: PLASMA No comment entered. Ordering Provider: JEVON ZAZUETA Report Released Date/Time: Jul 05, 2024 01:22 PM Reporting Lab: [facility] [address] Performing Lab: [facility] [address] CREATININE 0.7 mg/dL 0.7-1.2 UREA NITROGEN 12 [...] AM Reporting Lab: [facility] [address] Performing Lab: [facility] [address] MAGNESIUM 2.0 mg/dL 1.6-2.6 Jul 05, 2024 07:17 AM [facility] PHOSPHORUS Specimen Type: PLASMA No comment entered. Ordering Provider: JUANCARLOS ECHOLS S Report Released Date/Time: Jul 04, 2024 09:39 AM Reporting Lab: [facility] [address] Performing Lab: [facility] [address] PHOSPHORUS 2.0 mg/dL L 2.3-4.3 Jul 05, 2024 07:17 AM [facility] BASIC METABOLIC PANEL+MG Specimen Type: PLASMA No comment entered. Ordering Provider: JUANCARLOS ECHOLS S Report Released Date/Time: Jul 04, 2024 09:39 AM Reporting Lab: [facility] [address] Performing Lab: [facility] [address] CREATININE 0.7 mg/dL 0.7-1.2 UREA NITROGEN 12 [...] AM Reporting Lab: [facility] [address] Performing Lab: [facility] [address] WBC 18.3 H 4.0-11.0 RBC 4.49 L [...] PM Reporting Lab: [facility] [address] Performing Lab: [facility] [address] CREATININE 0.7 mg/dL 0.7-1.2 UREA NITROGEN 16 mg/dL 8-26 GLUCOSE 129 mg/dL H 70-100 SODIUM 137 mmol/L 136-145 POTASSIUM 3.7 mmol/L 3.5-5.1 CHLORIDE 107 mmol/L 98-107 CO2 22 mmol/L 22-29 CALCIUM 9.0 mg/dL 8.4-10.2 MAGNESIUM 1.9 mg/dL 1.6-2.6 ANION GAP 8 mmol/L 5-15 .CREAT EGFR(CKD-EPI) >90 >60 Jul 04, 2024 07:17 AM [facility] PHOSPHORUS Specimen Type: PLASMA No comment entered. Ordering Provider: GABINO CAMERON Report Released Date/Time: Jul 03, 2024 06:31 PM Reporting Lab: [facility] [address] Performing Lab: [facility] [address] PHOSPHORUS 2.8 mg/dL 2.3-4.3 Jul 04, 2024 07:16 AM [facility] CBC Specimen Type: BLOOD No comment entered. Ordering Provider: GABINO CAMERON Report Released Date/Time: Jul 03, 2024 06:31 PM Reporting Lab: [facility] [address] Performing Lab: [facility] [address] WBC 20.6 H 4.0-11.0 RBC 4.63 4.60-6.20 [...] PM Reporting Lab: [facility] [address] Performing Lab: [facility] [address] WBC 20.6 H 4.0-11.0 RBC 4.63 4.60-6.20 [...] PM Reporting Lab: [facility] [address] Performing Lab: [facility] [address] BNP 292 pg/mL H <99 Jul 03, 2024 10:32 PM [facility] FINGERSTICK GLUCOSE Specimen Type: BLOOD Comment: Save Result Nurse Notified Ordering Provider: KATELYNN PERSON Report Released Date/Time: Jul 03, 2024 10:50 PM Reporting Lab: [facility] [address] Performing Lab: [facility] [address] FINGERSTICK GLUCOSE 126 mg/dL H 70-100 Jul 03, 2024 05:33 PM [facility] FINGERSTICK GLUCOSE Specimen Type: BLOOD Comment: Save Result Nurse Notified Ordering Provider: KATELYNN PERSON Report Released Date/Time: Jul 03, 2024 05:46 PM Reporting Lab: [facility] [address] Performing Lab: [facility] [address] FINGERSTICK GLUCOSE 141 mg/dL H 70-100 Jul 03, 2024 02:31 PM [facility] POC ABG/ELECTROLYTES Specimen Type: ARTERIAL BLOOD Comment: FIO2 = 97% Patient Temp: 36.0 C Sample Type = ARTERIAL Ordering Provider: MAZIN ARREDONDO Report Released Date/Time: Jul 03, 2024 01:48 PM Reporting Lab: [facility] [address] Performing Lab: [facility] [address] POC PH 7.387 7.35-7.45 POC PCO2 34.4 [...] PM Reporting Lab: [facility] [address] Performing Lab: [facility] [address] POC PH 7.280 L 7.35-7.45 POC PCO2 [...] PM Reporting Lab: [facility] [address] Performing Lab: [facility] [address] URINE COLOR YELLOW SPECIFIC GRAVITY 1.031 1.003-1.03 [...] PM Reporting Lab: [facility] [address] Performing Lab: [facility] [address] WBC 15.8 H 4.0-11.0 RBC 5.11 4.60-6.20 [...] PM Reporting Lab: [facility] [address] Performing Lab: [facility] [address] CREATININE 0.8 mg/dL 0.7-1.2 UREA NITROGEN 13 [...] PM Reporting Lab: [facility] [address] Performing Lab: [facility] [address] WBC 15.5 H 4.0-11.0 RBC 4.93 4.60-6.20 [...] PM Reporting Lab: [facility] [address] Performing Lab: [facility] [address] CREATININE 0.7 mg/dL 0.7-1.2 UREA NITROGEN 16 [...] PM Reporting Lab: [facility] [address] Performing Lab: [facility] [address] WBC 14.9 H 4.0-11.0 RBC 5.09 4.60-6.20 [...] PM Reporting Lab: [facility] [address] Performing Lab: [facility] [address] WBC 16.9 H 4.0-11.0 RBC 5.28 4.60-6.20 [...] PM Reporting Lab: [facility] [address] Performing Lab: [facility] [address] CREATININE 0.7 mg/dL 0.7-1.2 UREA NITROGEN 17 [...] PM Reporting Lab: [facility] [address] Performing Lab: [facility] [address] URINE COLOR YELLOW SPECIFIC GRAVITY 1.041 H [...] PM Reporting Lab: [facility] [address] Performing Lab: [facility] [address] POC CREATININE 1.1 mg/dL 0.6-1.3 Jun 21, 2024 05:30 PM [facility] POC ABG/LACTATE Specimen Type: VENOUS BLOOD No comment entered. Ordering Provider: DELIA MARTINEZ Report Released Date/Time: Jun 21, 2024 06:07 PM Reporting Lab: [facility] [address] Performing Lab: [facility] [address] POC PH 7.470 H 7.31-7.41 POC PCO2 [...] PM Reporting Lab: [facility] [address] Performing Lab: [facility] [address] .INR 1.2 H 0.8-1.1 .PT 13.9 s H 9.4-12.5 Jun 21, 2024 05:24 PM [facility] LIPASE Specimen Type: PLASMA No comment entered. Ordering Provider: DELIA MARTINEZ Report Released Date/Time: Jun 21, 2024 05:30 PM Reporting Lab: [facility] [address] Performing Lab: [facility] [address] LIPASE 32 U/L <60 Jun 21, 2024 05:24 PM [facility] EXTRA GOLD GEL TUBE Specimen Type: SERUM No comment entered. Ordering Provider: DELIA MARTINEZ Report Released Date/Time: Jun 21, 2024 05:41 PM Reporting Lab: [facility] [address] Performing Lab: [facility] [address] EXTRA GOLD GEL TUBE RECEIVED Jun 21, 2024 05:24 PM [facility] COMPREHENSIVE METABOLIC PANEL+MG Specimen Type: PLASMA No comment entered. Ordering Provider: DELIA MARTINEZ Report Released Date/Time: Jun 21, 2024 05:30 PM Reporting Lab: [facility] [address] Performing Lab: [facility] [address] CREATININE 0.9 mg/dL 0.7-1.2 UREA NITROGEN 29 [...] PM Reporting Lab: [facility] [address] Performing Lab: [facility] [address] WBC 21.3 H 4.0-11.0 RBC 5.48 4.60-6.20 [...] Source Jul 18, 2024 11:21 PM [facility] Social History: Smoking Status (Most current) and Tobacco Use (All prior to encounter date) This section includes the most current, and the historical, smoking and tobacco- related health factors from the [place] facility where the Encounter took place. Current Smoking Status This section includes the most current smoking, or tobacco-related health factor, from the [facility] where the Encounter took [...] 06:15 PM CHEST 1 VIEW: FLACA WEAVER [id number] -1950 M Exm Date: JUL 18, 2024@18:15 Req Phys: LEISA GOLDEN Loc: 3E07-18-2024@19:00 Img Loc: MAIN X-RAY Service: PRIMARY [place] [address] (Case [id number] COMPLETE) CHEST 1 VIEW (RAD Detailed) CPT:83011 Proc Modifiers : PORTABLE EXAM Reason for Study: SOB Clinical History: IS NOT under investigation for COVID-19 or is COVID-19 negative 73 yo with SOB Responsible provider name and phone number to notify for critical findings if other than user placing the order and pager listed below: User placing orders pager: [phone] LAST CREATININE 1.2 (07/17/24) Report Status: Verified Date Reported: JUL 18, 2024 Date Verified: JUL 18, 2024 Restaurant Attendant E-Sig:/ES/CARLOS A CUNNINGHAM DO Report: EXAMINATION: CHEST 1 VIEW Reason for Study: SOB IS NOT under investigation for COVID-19 or is COVID-19 negative 73 yo with SOB Responsible provider name and phone number to notify for critical findings if other than user placing the order and pager listed below: User placing orders pager: [phone] LAST CREATININE 1.2 (07/17/24) SOB TECHNIQUE: Single [...] Interpreting Staff: CARLOS A CUNNINGHAM DO, RADIOLOGIST (Restaurant Attendant) /CARLOS A ROWELL [facility] Jul 16, 2024 07:[address] [facility] [address] ABDOMEN/PELVIS: FLACA WEAVER [id number] -1950 M Exm Date: JUL 16, 2024@07:49 Req Phys: JATINDER CABRERA Loc: 07-17-2024@09:02 Img Loc: OUTSOURCE CT Service: Unknown (Case [id number] COMPLETE) NON [place] CT ABDOMEN/PELVIS (CT Detailed) CPT:83477 Reason for Study: outside study Clinical History: [facility] Jul 13, 2024 09:[address] [facility] [address] ABDOMEN/PELVIS: FLACA WEAVER [id number] -1950 M Exm Date: JUL 13, 2024@09:41 Req Phys: JATINDER CABRERA Loc: 07-17-2024@09:08 Img Loc: OUTSOURCE CT Service: Unknown (Case [id number] COMPLETE) NON [place] CT ABDOMEN/PELVIS (CT Detailed) CPT:48075 Reason for Study: outside study Clinical History: [...] 2 VIEWS PA AND LAT: FLACA WEAVER [id number] -1950 M Exm Date: JUL 08, 2024@10:09 Req Phys: KATELYNN PERSON Pat Loc: 2KG/07-08-2024@11:49 Img Loc: MAIN X-RAY Service: [place] [address] (Case 24 COMPLETE) CHEST 2 VIEWS PA AND LAT (RAD Detailed) CPT:43498 Reason for Study: Uptrending WBC, POD 5 [...] 08, 2024 Date Verified: JUL 08, 2024 Restaurant Attendant E-Sig: Report: CHEST 2 VIEWS PA AND [...] cardiopulmonary disease. READING PHYSICIAN: Sarbjit Vaughn M.D. -[phone] 07/08/2024 12:46 EST [facility] National Teleradiology Program [phone] (For Medical Practitioner Use Only) Attention Patients / Veterans: If you have questions or concerns about these test results, please contact your ordering provider or primary care team. Primary Interpreting Staff: RADIOLOGY,OUTSIDE SERVICE, Staff Physician / RADIOLOGY,OUTSIDE SERVICE [facility] Jul 08, 2024 10:[address] (AP) ABDOMEN/PELVIS W CONTRAST: FLACA WEAVER [id number] -1950 M Exm Date: JUL 08, 2024@10:00 Req Phys: KATELYNN PERSON Pat Loc: 2K/07-08-2024@12:07 Img Loc: CT IMAGING Service: [place] [address] (Case 22 COMPLETE) CT (AP) ABDOMEN/PELVIS W CONTRAST(CT Detailed) CPT:14536 Contrast Media : Non-ionic Iodinated Reason for [...] PLASMA .CREAT EGFR(CKD-E >90 Ref: >=60 Allergies: ([place] only) TERAZOSIN (Mar 13, 2015) Report Status: Verified Date Reported: JUL 08, 2024 Date Verified: JUL 08, 2024 Restaurant Attendant E-Sig: Report: CT (AP) ABDOMEN/PELVIS W CONTRAST [...] as noted above READING PHYSICIAN: Celestino Blanc -[phone] 07/08/2024 13:04 EST [facility] [phone] (For Medical Practitioner Use Only) Attention Patients / Veterans: If you have questions or concerns about these test results, please contact your ordering provider or primary care team. Primary Interpreting Staff: RADIOLOGY,OUTSIDE SERVICE, Staff Physician / RADIOLOGY,OUTSIDE SERVICE [facility] Jun 22, 2024 11:49 AM ABSCESS DRAIN PLACEMENT PERITONEAL (P): FLACA WEAVER [id number] -1950 M Exm Date: JUN 22, 2024@11:49 Req Phys: ANGELA HOLDEN Loc: [facility]/06-22-2024@17:14 Img Loc: INTERVENTIONAL RADIOLOGY Service: [place] [address] (Case [id number] COMPLETE) IR PERITONEAL/RETROPERITONEAL PER(ANI Detailed) CPT:11012 Reason for Study: diverticulitis with abscess (Case [id number] COMPLETE) IR MOD SEDATION 10-22 MIN (ANI Detailed) CPT:63612 Clinical History: IS NOT under investigation for COVID-19 or is COVID-19 negative 73 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 please place abscess drain. Contact number for responsible provider who can be reached for any questions or notifications of critical findings: [phone] n/a LAST CREATININE 0.9 (06/21/24) Report Status: Verified Date Reported: JUN 22, 2024 Date Verified: JUN 22, 2024 Restaurant Attendant E-Sig:/ES/LISA PENDLETON MD Report: PROCEDURES: Placement of [...] anesthesia. Using real-time CT fluoroscopy, a 5 Wolof Yueh centesis catheter was advanced into the collection in the left pelvis. A wire was coiled in the collection. The tract into the collection was dilated to accommodate the 12 Wolof locking pigtail drainage catheter. There was return [...] Primary Interpreting Staff: LISA PENDLETON MD, RADIOLOGIST (Restaurant Attendant) /JRT LISA PENDLETON [facility] Jun 22, 2024 11:[address] NEEDLE PLACEMENT (P): FLACA WEAVER [id number] -1950 M Exm Date: JUN 22, 2024@11:48 Req Phys: ANGELA HLODEN [facility] Loc: [facility]/06-22-2024@17:14 Img Loc: CT IMAGING Service: [place] [address] (Case [id number] COMPLETE) CT SCAN FOR NEEDLE PLACEMENT (CT Detailed) CPT:27898 Reason for Study: l pelvic abscess drain Clinical History: Report Status: Verified Date Reported: JUN 22, 2024 Date Verified: JUN 22, 2024 Restaurant Attendant E-Sig:/ES/LISA PENDLETON MD Report: PROCEDURES: Placement of [...] anesthesia. Using real-time CT fluoroscopy, a 5 Wolof iTOKesis catheter was advanced into the collection in the left pelvis. A wire was coiled in the collection. The tract into the collection was dilated to accommodate the 12 Wolof locking pigtail drainage catheter. There was return [...] Primary Interpreting Staff: LISA PENDLETON MD, RADIOLOGIST (Restaurant Attendant) /JRT LISA PENDLETON [facility] Jun 21, 2024 06:[address] (AP) ABDOMEN/PELVIS (P): FLACA WEAVER [id number] -1950 M Exm Date: JUN 21, 2024@18:09 Req Phys: DELIA MARTINEZ Loc: [facility] EMERGENCY [facility]PT WALK-IN (Re Img Loc: CT IMAGING Service: [place] [address] (Case [id number] COMPLETE) CT (AP) ABDOMEN/PELVIS W CONTRAST(CT Detailed) CPT:56986 Contrast Media : Non-ionic Iodinated Reason for [...] PLASMA .CREAT EGFR(CKD-E >90 Ref: >=60 Allergies: ([facility]) TERAZOSIN (Mar 13, 2015) Defer [...] 21, 2024 Date Verified: JUN 21, 2024 Restaurant Attendant E-Sig:/ALEXI/CARLOS A CUNNINGHAM DO Report: EXAMINATION: CT [...] Interpreting Staff: CARLOS A CUNNINGHAM DO, RADIOLOGIST (Restaurant Attendant) /CARLOS A ROWELL [facility] Pathology [...] PORT: Reporting Lab: [facility] [CLIA# [id number]] [place] [address] Accession [UID]: [id number] [[id number]] Received: Jul 16, 2024@14:41 Collection sample: BLOOD Collection date: Jul 16, 2024 14:07 Provider: LEISA GOLDEN Comment on specimen: R AC, RECEIVED 2 BLOOD CULTURE BOTTLES Test(s) ordered: CULTURE & SUSCEPTIBILITY...... completed: Jul 22, 2024 * BACTERIOLOGY FINAL REPORT => Jul 22, 2024 13:39 TECH CODE: [id number] CULTURE RESULTS: NO GROWTH 5 DAYS Bacteriology Remark(s): THIS REPORT IS FINAL =--=--=--=--=--=--=--=--=--= --=--=--=--=--=--=--=--=--=- -=--=--=--=--=--=--=-- Performing Laboratory: Bacteriology Report Performed By: [facility] [CLIA# [id number]] [place] [address] [facility] Jul 16, 2024 01:54 PM LR MICROBIOLOGY RE PORT: Reporting Lab: [facility] [CLIA# [id number]] [place] [address] Accession [UID]: [id number] [[id number]] Received: Jul 16, 2024@14:41 Collection sample: BLOOD Collection date: Jul 16, 2024 13:54 Provider: LEISA GOLDEN Comment on specimen: L AC, RECEIVED 2 BLOOD CULTURE BOTTLES Test(s) ordered: CULTURE & SUSCEPTIBILITY...... completed: Jul 22, 2024 * BACTERIOLOGY FINAL REPORT => Jul 22, 2024 13:39 TECH CODE: [id number] CULTURE RESULTS: NO GROWTH 5 DAYS Bacteriology Remark(s): THIS REPORT IS FINAL =--=--=--=--=--=--=--=--=--= --=--=--=--=--=--=--=--=--=- -=--=--=--=--=--=--=-- Performing Laboratory: Bacteriology Report Performed By: [facility] [CLIA# [id number]] [place] [address] [facility] Jul 03, 2024 05:59 AM LR SURGICAL PATHOL OGY REPORT: LOCAL TITLE: LR SURGICAL PATHOLOGY REPORT STANDARD TITLE: PATHOLOGY REPORT DATE OF NOTE: JUL 06, 2024@10:40:48 ENTRY DATE: JUL 06, 2024@10:40:48 AUTHOR: EDUARDO PALOMARES EXP COSIGNER: URGENCY: STATUS: COMPLETED $APHDR Reporting Lab: [facility] [CLIA# [id number]] [place] [address] - - - - - - - [...] - - - PATHOLOGY REPORT Accession No. [id number] - - - - - - - [...] - PATHOLOGY REPORT Accession No. [id number] - - - - - - - [...] Second circumferential surgical margin, en face; E-F: Pile Driver Engineer diverticula; G: Pile Driver Engineer section of mesentery; H: Random cash application representative section of additional adipose tissue fragment. [...] Report Performed By: [facility] [CLIA# [id number]] [place] [address] $FTR - - - - - - [...] - - [employer] STANDARD FORM 515 ID:[id number] SEX:M :1950 AGE: 73 LOC:[id number] ADM:Jun DX:DIVERTICULITIS PCP: Jatinder Cabrera /alexi/ EDUARDO PALOMARES MD STAFF PATHOLOGIST Signed: 07/06/2024 10:40 EDUARDO PALOMARES [facility] Jun 22, 2024 01:15 PM LR MICROBIOLOGY RE PORT: Reporting Lab: [facility] [CLIA# [id number]] [place] [address] Accession [UID]: [id number] [[id number]] Received: Jun 22, 2024@13:38 Collection sample: FLUID Collection date: Jun 22, 2024 13:15 Provider: ANGELA HOLDEN Comment on specimen: LLQ ABSCESS, RECEIVED IN ANAEROBIC TRANSPORT VIAL Test(s) ordered: GRAM STAIN.................... completed: Jun 22, 2024 15:03 CULTURE & SUSCEPTIBILITY...... completed: Jun 25, 2024 * BACTERIOLOGY FINAL REPORT => Jun 25, 2024 10:56 TECH CODE: [id number] GRAM STAIN: DIRECT SMEAR of specimen before [...] Report Performed By: [facility] [CLIA# [id number]] [place] [address] [facility] Jun 22, 2024 01:15 PM LR MICROBIOLOGY RE PORT: Reporting Lab: [facility] [CLIA# [id number]] [place] [id number] Accession [UID]: [id number] [[id number]] Received: Jun 22, 2024@13:38 Collection sample: FLUID Collection date: Jun 22, 2024 13:15 Provider: ANGELA HOLDEN Comment on specimen: LLQ ABSCESS, RECEIVED IN ANAEROBIC TRANSPORT VIAL Test(s) ordered: ANAEROBIC CULTURE............. completed: Jun 28, 2024 * BACTERIOLOGY FINAL REPORT => Jun 28, 2024 10:08 TECH CODE: [id number] CULTURE RESULTS: HEAVY GROWTH MIXED ANAEROBES Comment: [...] Report Performed By: [facility] [CLIA# [id number]] [place] [address] [facility] Jun 21, 2024 06:12 PM LR MICROBIOLOGY RE PORT: Reporting Lab: [facility] [IA# [id number]] [place] [address] Accession [UID]: [id number] [[id number]] Received: Jun 21, 2024@18:12 Collection sample: BLOOD [...] Report Performed By: [facility] [CLIA# [id number]] [place] [address] [facility] Jun 21, 2024 06:11 PM LR MICROBIOLOGY RE PORT: Reporting Lab: [facility] [CLIA# [id number]] [place] [address] Accession [UID]: [id number] [[id number]] Received: Jun 21, 2024@18:11 Collection sample: BLOOD [...] Report Performed By: [facility] [CLIA# [id number]] [place] [address] [facility]
--- OUTSIDE RECORDS SUMMARY | 2024-08-01 08:01 | XMS_ITS ---
[place] DAILY HOSPITALIZATION DATA [facility] Encounter Summary Created on: August 01, 2024 MEG FLACADARCI LOBO : 1950 Sex: Male Author Name [facility] [facility] [place] Address [address] [place] [address] Care Team Providers Care Client Services Assistant Name Role Phone JATINDER CABRERA Primary [...] PART A Sep 29, 2016 PART A [id number] [phone] JUDY WEAVER PATIENT Selected Encounter This section includes the information on record at [place] for the Encounter. Date/Time Encounter Type Encounter Description Reason Pro vider Source Jul 18, 2024 09:26 PM Inpatient Visit DAILY HOSPITALIZATION DATA IHE [...] SCREEN - LAB BLOOD WC [facility] Jul 03, 2024 12:00 AM Laboratory - Blood Bank Order TYPE & SCREEN - LAB BLOOD WC [facility] Jul 16, 2024 12:00 [...] Range Comment Jul 21, 2024 10:38 AM [facility] BASIC METABOLIC PANEL+MG Specimen Type: PLASMA No comment entered. Ordering Provider: SARAI GOLDEN Report Released Date/Time: Jul 20, 2024 06:50 PM Reporting Lab: [facility] [address] Performing Lab: [facility] [address] CREATININE 0.8 mg/dL 0.7-1.2 UREA NITROGEN 31 mg/dL H 8-26 GLUCOSE 120 mg/dL H 70-100 SODIUM 125 mmol/L L 136-145 POTASSIUM 4.4 mmol/L 3.5-5.1 CHLORIDE 100 mmol/L 98-107 CO2 17 mmol/L L 22-29 CALCIUM 9.6 mg/dL 8.4-10.2 MAGNESIUM 1.9 mg/dL 1.6-2.6 ANION GAP 8 mmol/L 5-15 .CREAT EGFR(CKD-EPI) >90 >60 Jul 21, 2024 10:38 AM [facility] CBC Specimen Type: BLOOD No comment entered. Ordering Provider: SARAI GOLDEN Report Released Date/Time: Jul 20, 2024 06:50 PM Reporting Lab: [facility] [address] Performing Lab: [facility] [address] WBC 16.0 H 4.0-11.0 RBC 5.16 4.60-6.20 HGB 15.8 g/dL 13.5-17.9 HCT 45.5 41.0-54.0 MCV 88.2 fL 80.0-100.0 MCH 30.6 pg 27.0-33.0 MCHC 34.7 g/dL 32.0-37.5 PLT 428 H 150-400 MPV 10.8 fL 9.1-13.0 RDW 13.6 11.5-14.5 Jul 20, 2024 01:00 PM [facility] SODIUM,URINE RANDOM Specimen Type: URINE No comment entered. Ordering Provider: SARAI GOLDEN Report Released Date/Time: Jul 20, 2024 08:22 AM Reporting Lab: [facility] [address] Performing Lab: [facility] [address] SODIUM,URINE RANDOM <20 mmol/L Jul 20, 2024 01:00 PM [facility] OSMOLALITY,URINE Specimen Type: URINE No comment entered. Ordering Provider: SARAI GOLDEN Report Released Date/Time: Jul 20, 2024 08:22 AM Reporting Lab: [facility] [address] Performing Lab: [facility] [address] OSMOLALITY,URIN E 648 mosm/kg 500-800 Jul 20, 2024 06:45 AM [facility] BASIC METABOLIC PANEL+MG Specimen Type: PLASMA No comment entered. Ordering Provider: SARAI GOLDEN Report Released Date/Time: Jul 19, 2024 06:13 PM Reporting Lab: [facility] [address] Performing Lab: [facility] [address] CREATININE 0.8 mg/dL 0.7-1.2 UREA NITROGEN 36 mg/dL H 8-26 GLUCOSE 111 mg/dL H 70-100 SODIUM 121 mmol/L L 136-145 POTASSIUM 4.1 mmol/L 3.5-5.1 CHLORIDE 99 mmol/L 98-107 CO2 14 mmol/L L 22-29 CALCIUM 9.5 mg/dL 8.4-10.2 MAGNESIUM 1.8 mg/dL 1.6-2.6 ANION GAP 8 mmol/L 5-15 .CREAT EGFR(CKD-EPI) >90 >60 Jul 20, 2024 06:43 AM [facility] CBC & DIFF Specimen Type: BLOOD Comment: Automated Differential Performed Ordering Provider: SARAI GOLDEN Report Released Date/Time: Jul 19, 2024 06:13 PM Reporting Lab: [facility] [address] Performing Lab: [facility] [address] WBC 16.6 H 4.0-11.0 RBC 4.96 4.60-6.20 [...] H 0.0-0.1 Jul 20, 2024 05:30 AM [facility] OSMOLALITY,SERUM Specimen Type: SERUM No comment entered. Ordering Provider: SARAI GOLDEN Report Released Date/Time: Jul 20, 2024 09:47 AM Reporting Lab: [facility] [address] Performing Lab: [facility] [address] OSMOLALITY,SERU M 266 mosm/kg L 276-305 Jul 19, 2024 08:57 AM [facility] BASIC METABOLIC PANEL+MG Specimen Type: PLASMA No comment entered. Ordering Provider: SARAI GOLDEN Report Released Date/Time: Jul 18, 2024 10:24 PM Reporting Lab: [facility] [address] Performing Lab: [facility] [address] CREATININE 1.0 mg/dL 0.7-1.2 UREA NITROGEN 40 mg/dL H 8-26 GLUCOSE 104 mg/dL H 70-100 SODIUM 129 mmol/L L 136-145 POTASSIUM 3.3 mmol/L L 3.5-5.1 CHLORIDE 104 mmol/L 98-107 CO2 16 mmol/L L 22-29 CALCIUM 8.0 mg/dL L 8.4-10.2 MAGNESIUM 1.7 mg/dL 1.6-2.6 ANION GAP 9 mmol/L 5-15 .CREAT EGFR(CKD-EPI) 80 >60 Jul 19, 2024 08:57 AM [facility] CBC Specimen Type: BLOOD No comment entered. Ordering Provider: SARAI GOLDEN Report Released Date/Time: Jul 18, 2024 10:24 PM Reporting Lab: [facility] [address] Performing Lab: [facility] [address] WBC 17.3 H 4.0-11.0 RBC 4.83 4.60-6.20 HGB 14.8 g/dL 13.5-17.9 HCT 42.6 41.0-54.0 MCV 88.2 fL 80.0-100.0 MCH 30.6 pg 27.0-33.0 MCHC 34.7 g/dL 32.0-37.5 PLT 456 H 150-400 MPV 10.8 fL 9.1-13.0 RDW 13.7 11.5-14.5 Jul 17, 2024 06:55 PM [facility] PHOSPHORUS Specimen Type: PLASMA No comment entered. Ordering Provider: SARAI GOLDEN Report Released Date/Time: Jul 17, 2024 01:54 PM Reporting Lab: [facility] [address] Performing Lab: [facility] [address] PHOSPHORUS 2.9 mg/dL 2.3-4.3 Jul 17, 2024 06:55 PM [facility] BASIC METABOLIC PANEL+MG Specimen Type: PLASMA No comment entered. Ordering Provider: SARAI GOLDEN Report Released Date/Time: Jul 17, 2024 01:54 PM Reporting Lab: [facility] [address] Performing Lab: [facility] [address] CREATININE 1.2 mg/dL 0.7-1.2 UREA NITROGEN 62 mg/dL H 8-26 GLUCOSE 116 mg/dL H 70-100 SODIUM 128 mmol/L L 136-145 POTASSIUM 3.8 mmol/L 3.5-5.1 CHLORIDE 100 mmol/L 98-107 CO2 16 mmol/L L 22-29 CALCIUM 9.3 mg/dL 8.4-10.2 MAGNESIUM 2.1 mg/dL 1.6-2.6 ANION GAP 12 mmol/L 5-15 .CREAT EGFR(CKD-EPI) 64 >60 Jul 17, 2024 07:00 AM [facility] CBC & DIFF Specimen Type: BLOOD Comment: Manual Differential Performed Ordering Provider: SARAI GOLDEN Report Released Date/Time: Jul 16, 2024 04:52 PM Reporting Lab: [facility] [address] Performing Lab: [facility] [address] WBC 18.9 H 4.0-11.0 RBC 5.55 4.60-6.20 [...] MORPHOLOGY PRESENT Jul 17, 2024 07:00 AM [facility] ALBUMIN Specimen Type: PLASMA No comment entered. Ordering Provider: SARAI GOLDEN Report Released Date/Time: Jul 16, 2024 12:12 PM Reporting Lab: [facility] [address] Performing Lab: [facility] [address] ALBUMIN 4.3 g/dL 3.5-5.0 Jul 17, 2024 07:00 AM [facility] COMPREHENSIVE METABOLIC PANEL+MG Specimen Type: PLASMA No comment entered. Ordering Provider: SARAI GOLDEN Report Released Date/Time: Jul 16, 2024 04:52 PM Reporting Lab: [facility] [address] Performing Lab: [facility] [address] CREATININE 1.3 mg/dL H 0.7-1.2 UREA NITROGEN [...] L >60 Jul 16, 2024 07:10 PM [facility] LACTIC ACID Specimen Type: PLASMA No comment entered. Ordering Provider: SARAI GOLDEN Report Released Date/Time: Jul 16, 2024 12:12 PM Reporting Lab: [facility] [address] Performing Lab: [facility] [address] LACTIC ACID 0.9 mmol/L 0.5-2.2 Jul 16, 2024 02:14 PM [facility] MRSA SURVL NARES DNA Specimen Type: NARES No comment entered. Ordering Provider: SARAI GOLDEN Report Released Date/Time: Jul 16, 2024 12:12 PM Reporting Lab: [facility] [address] Performing Lab: [facility] [address] MRSA SURVL NARES DNA NEGATIVE Negative Jul 16, 2024 02:10 PM [facility] LACTIC ACID Specimen Type: PLASMA No comment entered. Ordering Provider: SARAI GOLDEN Report Released Date/Time: Jul 16, 2024 12:12 PM Reporting Lab: [facility] [address] Performing Lab: [facility] [address] LACTIC ACID 0.9 mmol/L 0.5-2.2 Jul 16, 2024 02:08 PM [facility] COMPREHENSIVE METABOLIC PANEL+MG Specimen Type: PLASMA No comment entered. Ordering Provider: SARAI GOLDEN Report Released Date/Time: Jul 16, 2024 12:12 PM Reporting Lab: [facility] [address] Performing Lab: [facility] [address] CREATININE 2.0 mg/dL H 0.7-1.2 UREA NITROGEN [...] L >60 Jul 16, 2024 02:08 PM [facility] CBC & DIFF Specimen Type: BLOOD Comment: Manual Differential Performed Ordering Provider: SARAI GOLDEN Report Released Date/Time: Jul 16, 2024 12:12 PM Reporting Lab: [facility] [address] Performing Lab: [facility] [address] WBC 19.7 H 4.0-11.0 RBC 5.39 4.60-6.20 [...] MORPHOLOGY PRESENT Jul 10, 2024 07:16 AM [facility] PHOSPHORUS Specimen Type: PLASMA No comment entered. Ordering Provider: JUANCARLOS ECHOLS Report Released Date/Time: Jul 09, 2024 12:23 PM Reporting Lab: [facility] [address] Performing Lab: [facility] [address] PHOSPHORUS 3.0 mg/dL 2.3-4.3 Jul 10, 2024 07:16 AM [facility] BASIC METABOLIC PANEL+MG Specimen Type: PLASMA No comment entered. Ordering Provider: JUANCARLOS ECHOLS S Report Released Date/Time: Jul 09, 2024 12:23 PM Reporting Lab: [facility] [address] Performing Lab: [facility] [address] CREATININE 0.7 mg/dL 0.7-1.2 UREA NITROGEN 27 [...] Jul 09, 2024 12:23 PM Reporting Lab: [facility] [address] Performing Lab: [facility] [address] WBC 18.8 H 4.0-11.0 RBC 5.08 4.60-6.20 [...] Jul 08, 2024 06:18 PM Reporting Lab: [facility] [address] Performing Lab: [facility] [address] WBC 15.3 H 4.0-11.0 RBC 4.91 4.60-6.20 [...] Jul 08, 2024 08:41 AM Reporting Lab: [facility] [address] Performing Lab: [facility] [address] URINE COLOR YELLOW SPECIFIC GRAVITY >1.050 H [...] Jul 07, 2024 04:49 PM Reporting Lab: [facility] [address] Performing Lab: [facility] [address] WBC 17.5 H 4.0-11.0 RBC 4.88 4.60-6.20 [...] Jul 07, 2024 04:49 PM Reporting Lab: [facility] [address] Performing Lab: [facility] [address] PHOSPHORUS 2.6 mg/dL 2.3-4.3 Jul 08, 2024 09:54 AM [facility] BASIC METABOLIC PANEL+MG Specimen Type: PLASMA Comment: Specimen received in Lab at: [id number] Ordering Provider: JUANCARLOS ECHOLS Report Released Date/Time: Jul 07, 2024 04:49 PM Reporting Lab: [facility] [address] Performing Lab: [facility] [address] CREATININE 0.9 mg/dL 0.7-1.2 UREA NITROGEN 26 [...] Jul 07, 2024 12:26 PM Reporting Lab: [facility] [address] Performing Lab: [facility] [address] C DIFF TOX B GENE PCR NEGATIVE Negative Jul 07, 2024 07:41 AM [facility] PHOSPHORUS Specimen Type: PLASMA No comment entered. Ordering Provider: JEVON ZAZUETA Report Released Date/Time: Jul 06, 2024 03:44 PM Reporting Lab: [facility] [address] Performing Lab: [facility] [address] PHOSPHORUS 3.1 mg/dL 2.3-4.3 Jul 07, 2024 07:41 AM [facility] BASIC METABOLIC PANEL+MG Specimen Type: PLASMA No comment entered. Ordering Provider: JEVON ZAZUETA Report Released Date/Time: Jul 06, 2024 03:44 PM Reporting Lab: [facility] [address] Performing Lab: [facility] [address] CREATININE 0.9 mg/dL 0.7-1.2 UREA NITROGEN 20 [...] Jul 06, 2024 03:44 PM Reporting Lab: [facility] [address] Performing Lab: [facility] [address] WBC 21.2 H 4.0-11.0 RBC 5.09 4.60-6.20 [...] Jul 05, 2024 01:22 PM Reporting Lab: [facility] [address] Performing Lab: [facility] [address] WBC 18.0 H 4.0-11.0 RBC 4.83 4.60-6.20 [...] Jul 05, 2024 01:22 PM Reporting Lab: [facility] [address] Performing Lab: [facility] [address] PHOSPHORUS 3.6 mg/dL 2.3-4.3 Jul 06, 2024 07:21 AM [facility] BASIC METABOLIC PANEL+MG Specimen Type: PLASMA No comment entered. Ordering Provider: JEVON ZAZUETA Report Released Date/Time: Jul 05, 2024 01:22 PM Reporting Lab: [facility] [address] Performing Lab: [facility] [address] CREATININE 0.7 mg/dL 0.7-1.2 UREA NITROGEN 12 [...] Jul 04, 2024 09:39 AM Reporting Lab: [facility] [address] Performing Lab: [facility] [address] MAGNESIUM 2.0 mg/dL 1.6-2.6 Jul 05, 2024 07:17 AM [facility] PHOSPHORUS Specimen Type: PLASMA No comment entered. Ordering Provider: JUANCARLOS ECHOLS S Report Released Date/Time: Jul 04, 2024 09:39 AM Reporting Lab: [facility] [address] Performing Lab: [facility] [address] PHOSPHORUS 2.0 mg/dL L 2.3-4.3 Jul 05, 2024 07:17 AM [facility] BASIC METABOLIC PANEL+MG Specimen Type: PLASMA No comment entered. Ordering Provider: JUANCARLOS ECHOLS S Report Released Date/Time: Jul 04, 2024 09:39 AM Reporting Lab: [facility] [address] Performing Lab: [facility] [address] CREATININE 0.7 mg/dL 0.7-1.2 UREA NITROGEN 12 [...] Jul 04, 2024 09:39 AM Reporting Lab: [facility] [address] Performing Lab: [facility] [address] WBC 18.3 H 4.0-11.0 RBC 4.49 L [...] Jul 03, 2024 06:31 PM Reporting Lab: [facility] [address] Performing Lab: [facility] [address] CREATININE 0.7 mg/dL 0.7-1.2 UREA NITROGEN 16 [...] Jul 03, 2024 06:31 PM Reporting Lab: [facility] [address] Performing Lab: [facility] [address] PHOSPHORUS 2.8 mg/dL 2.3-4.3 Jul 04, 2024 07:16 AM [facility] CBC Specimen Type: BLOOD No comment entered. Ordering Provider: GABINO CAMERON Report Released Date/Time: Jul 03, 2024 06:31 PM Reporting Lab: [facility] [address] Performing Lab: [facility] [address] WBC 20.6 H 4.0-11.0 RBC 4.63 4.60-6.20 [...] Jul 03, 2024 06:31 PM Reporting Lab: [facility] [address] Performing Lab: [facility] [address] WBC 20.6 H 4.0-11.0 RBC 4.63 4.60-6.20 [...] Jul 03, 2024 06:31 PM Reporting Lab: [facility] [address] Performing Lab: [facility] [address] BNP 292 pg/mL H <99 Jul 03, 2024 10:32 PM [facility] FINGERSTICK GLUCOSE Specimen Type: BLOOD Comment: Save Result Nurse Notified Ordering Provider: KATELYNN PERSON Report Released Date/Time: Jul 03, 2024 10:50 PM Reporting Lab: [facility] [address] Performing Lab: [facility] [address] FINGERSTICK GLUCOSE 126 mg/dL H 70-100 Jul 03, 2024 05:33 PM [facility] FINGERSTICK GLUCOSE Specimen Type: BLOOD Comment: Save Result Nurse Notified Ordering Provider: KATELYNN PERSON Report Released Date/Time: Jul 03, 2024 05:46 PM Reporting Lab: [facility] [address] Performing Lab: [facility] [address] FINGERSTICK GLUCOSE 141 mg/dL H 70-100 Jul 03, 2024 02:31 PM [facility] POC ABG/ELECTROLYTES Specimen Type: ARTERIAL BLOOD Comment: FIO2 = 97% Patient Temp: 36.0 C Sample Type = ARTERIAL Ordering Provider: MAZIN ARREDONDO Report Released Date/Time: Jul 03, 2024 01:48 PM Reporting Lab: [facility] [address] Performing Lab: [facility] [address] POC PH 7.387 7.35-7.45 POC PCO2 34.4 [...] Jul 03, 2024 01:48 PM Reporting Lab: [facility] [address] Performing Lab: [facility] [address] POC PH 7.280 L 7.35-7.45 POC PCO2 [...] Jun 12, 2024 04:01 PM Reporting Lab: [facility] [address] Performing Lab: [facility] [address] URINE COLOR YELLOW SPECIFIC GRAVITY 1.031 1.003-1.03 [...] Jun 12, 2024 03:59 PM Reporting Lab: [facility] [address] Performing Lab: [facility] [address] WBC 15.8 H 4.0-11.0 RBC 5.11 4.60-6.20 [...] Jun 23, 2024 06:07 PM Reporting Lab: [facility] [address] Performing Lab: [facility] [address] CREATININE 0.8 mg/dL 0.7-1.2 UREA NITROGEN 13 [...] Jun 23, 2024 06:07 PM Reporting Lab: [facility] [address] Performing Lab: [facility] [address] WBC 15.5 H 4.0-11.0 RBC 4.93 4.60-6.20 [...] Jun 22, 2024 05:51 PM Reporting Lab: [facility] [address] Performing Lab: [facility] [address] CREATININE 0.7 mg/dL 0.7-1.2 UREA NITROGEN 16 [...] Jun 22, 2024 05:51 PM Reporting Lab: [facility] [address] Performing Lab: [facility] [address] WBC 14.9 H 4.0-11.0 RBC 5.09 4.60-6.20 [...] Jun 22, 2024 05:51 PM Reporting Lab: [facility] [address] Performing Lab: [facility] [address] WBC 16.9 H 4.0-11.0 RBC 5.28 4.60-6.20 [...] Jun 22, 2024 05:51 PM Reporting Lab: [facility] [address] Performing Lab: [facility] [address] CREATININE 0.7 mg/dL 0.7-1.2 UREA NITROGEN 17 [...] Jun 21, 2024 05:45 PM Reporting Lab: [facility] [address] Performing Lab: [facility] [address] URINE COLOR YELLOW SPECIFIC GRAVITY 1.041 H [...] Jun 21, 2024 06:07 PM Reporting Lab: [facility] [address] Performing Lab: [facility] [address] POC CREATININE 1.1 mg/dL 0.6-1.3 Jun 21, 2024 05:30 PM [facility] POC ABG/LACTATE Specimen Type: VENOUS BLOOD No comment entered. Ordering Provider: DELIA MARTINEZ Report Released Date/Time: Jun 21, 2024 06:07 PM Reporting Lab: [facility] [address] Performing Lab: [facility] [address] POC PH 7.470 H 7.31-7.41 POC PCO2 [...] Jun 21, 2024 05:30 PM Reporting Lab: [facility] [address] Performing Lab: [facility] [address] .INR 1.2 H 0.8-1.1 .PT 13.9 s H 9.4-12.5 Jun 21, 2024 05:24 PM [facility] LIPASE Specimen Type: PLASMA No comment entered. Ordering Provider: DELIA MARTINEZ Report Released Date/Time: Jun 21, 2024 05:30 PM Reporting Lab: [facility] [address] Performing Lab: [facility] [address] LIPASE 32 U/L <60 Jun 21, 2024 05:24 PM [facility] EXTRA GOLD GEL TUBE Specimen Type: SERUM No comment entered. Ordering Provider: DELIA MARTINEZ Report Released Date/Time: Jun 21, 2024 05:41 PM Reporting Lab: [facility] [address] Performing Lab: [facility] [address] EXTRA GOLD GEL TUBE RECEIVED Jun 21, 2024 05:24 PM [facility] COMPREHENSIVE METABOLIC PANEL+MG Specimen Type: PLASMA No comment entered. Ordering Provider: DELIA MARTINEZ Report Released Date/Time: Jun 21, 2024 05:30 PM Reporting Lab: [facility] [address] Performing Lab: [facility] [address] CREATININE 0.9 mg/dL 0.7-1.2 UREA NITROGEN 29 [...] Jun 21, 2024 05:30 PM Reporting Lab: [facility] [address] Performing Lab: [facility] [address] WBC 21.3 H 4.0-11.0 RBC 5.48 4.60-6.20 [...] Source Jul 18, 2024 11:21 PM [facility] Social History: Smoking Status (Most current) and Tobacco Use (All prior to encounter date) This section includes the most current, and the historical, smoking and tobacco- related health factors from the [place] facility where the Encounter took place. Current Smoking Status This section includes the most current smoking, or tobacco-related health factor, from the [facility] where the Encounter took place. [...] 06:15 PM CHEST 1 VIEW: FLACA WEAVER [id number] -1950 M Exm Date: JUL 18, 2024@18:15 Req Phys: LEISA GOLDEN Loc: 3E07-18-2024@19:00 Img Loc: MAIN X-RAY Service: [place] [address] (Case [id number] COMPLETE) CHEST 1 VIEW (RAD Detailed) CPT:57218 Proc Modifiers : PORTABLE EXAM Reason for Study: SOB Clinical History: IS NOT under investigation for COVID-19 or is COVID-19 negative 73 yo with SOB Responsible provider name and phone number to notify for critical findings if other than user placing the order and pager listed below: User placing orders pager: [phone] LAST CREATININE 1.2 (07/17/24) Report Status: Verified Date Reported: JUL 18, 2024 Date Verified: JUL 18, 2024 Hostel Manager E-Sig:/ES/CARLOS A CUNNINGHAM DO Report: EXAMINATION: CHEST 1 VIEW Reason for Study: SOB IS NOT under investigation for COVID-19 or is COVID-19 negative 73 yo with SOB Responsible provider name and phone number to notify for critical findings if other than user placing the order and pager listed below: User placing orders pager: [phone] LAST CREATININE 1.2 (07/17/24) SOB TECHNIQUE: Single [...] Interpreting Staff: CARLOS A CUNNINGHAM DO, RADIOLOGIST (Hostel Manager) /CARLOS A ROWELL [facility] Jul 16, 2024 07:49 AM [facility] CT ABDOMEN/PELVIS: FLACA WEAVER [id number] -1950 M Exm Date: JUL 16, 2024@07:49 Req Phys: JATINDER CABRERA Loc: 07-17-2024@09:02 Img Loc: OUTSOURCE CT Service: Unknown (Case [id number] COMPLETE) NON [place] CT ABDOMEN/PELVIS (CT Detailed) CPT:26553 Reason for Study: outside study Clinical History: [...] VERIFIED BY: / *ELECTRONICALLY FILED* [facility] Jul 13, 2024 09:41 AM [facility] CT ABDOMEN/PELVIS: FLACA WEAVER [id number] -1950 M Exm Date: JUL 13, 2024@09:41 Req Phys: JATINDER CABRERA Loc: 07-17-2024@09:08 Img Loc: OUTSOURCE CT Service: Unknown (Case [id number] COMPLETE) NON SC CT ABDOMEN/PELVIS (CT Detailed) CPT:22637 Reason for Study: outside study Clinical History: [...] VERIFIED BY: / *ELECTRONICALLY FILED* [facility] Jul 08, 2024 10:09 AM CHEST 2 VIEWS PA AND LAT: FLACA WEAVER [id number] -1950 M Exm Date: JUL 08, 2024@10:09 Req Phys: KATELYNN PERSON Pat Loc: 2KG/07-08-2024@11:49 Img Loc: MAIN X-RAY Service: [place] [address] (Case 24 COMPLETE) CHEST 2 VIEWS PA AND LAT (RAD Detailed) CPT:48976 Reason for Study: Uptrending WBC, POD 5 Clinical History: [place] IS NOT under investigation for COVID-19 or is COVID-19 negative POD 5, work up for uptrending wbc Responsible provider name and phone number to notify for critical findings if other than user placing the order and pager listed below: User placing orders pager: Katelynn Person LAST CREATININE 0.9 (07/07/24) Report Status: Verified Date Reported: JUL 08, 2024 Date Verified: JUL 08, 2024 Hostel Manager E-Sig: Report: CHEST 2 VIEWS PA [...] cardiopulmonary disease. READING PHYSICIAN: Sarbjit Vaughn M.D. -[phone] 07/08/2024 12:46 EST [facility] National [facility] Program [phone] (For Medical Practitioner Use Only) Attention Patients / Veterans: If you have questions or concerns about these test results, please contact your ordering provider or primary care team. Primary Interpreting Staff: RADIOLOGY,OUTSIDE SERVICE, Staff Physician / RADIOLOGY,OUTSIDE SERVICE [facility] Jul 08, 2024 10:[address] (AP) ABDOMEN/PELVIS W CONTRAST: FLACA WEAVER [id number] -1950 M Exm Date: JUL 08, 2024@10:00 Req Phys: KATELYNN PERSON Pat Loc: 2K/07-08-2024@12:07 Img Loc: CT IMAGING Service: [place] [address] (Case 22 COMPLETE) CT (AP) ABDOMEN/PELVIS W CONTRAST(CT Detailed) CPT:71683 Contrast Media : Non-ionic Iodinated Reason for [...] PLASMA .CREAT EGFR(CKD-E >90 Ref: >=60 Allergies: ([place] only) TERAZOSIN (Mar 13, 2015) Report Status: Verified Date Reported: JUL 08, 2024 Date Verified: JUL 08, 2024 Hostel Manager E-Sig: Report: CT (AP) ABDOMEN/PELVIS W [...] as noted above READING PHYSICIAN: Celestino Blanc -[phone] 07/08/2024 13:04 EST [facility] [phone] (For Medical Practitioner Use Only) Attention Patients / Veterans: If you have questions or concerns about these test results, please contact your ordering provider or primary care team. Primary Interpreting Staff: RADIOLOGY,OUTSIDE SERVICE, Staff Physician / RADIOLOGY,OUTSIDE SERVICE [facility] Jun 22, 2024 11:49 AM [facility] PLACEMENT PERITONEAL (P): FLACA WEAVER [id number] -1950 M Exm Date: JUN 22, 2024@11:49 Req Phys: ANGELA HOLDEN Loc: [facility]/06-22-2024@17:14 Img Loc: INTERVENTIONAL RADIOLOGY Service: [place] [address] (Case [id number] COMPLETE) IR PERITONEAL/RETROPERITONEAL PER(ANI Detailed) CPT:69552 Reason for Study: diverticulitis with abscess (Case 3570 COMPLETE) IR MOD SEDATION 10-22 MIN (ANI Detailed) CPT:97247 Clinical History: IS NOT under investigation for COVID-19 or is COVID-19 negative 73 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 please place abscess drain. Contact number for responsible provider who can be reached for any questions or notifications of critical findings: [phone] n/a LAST CREATININE 0.9 (06/21/24) Report Status: Verified Date Reported: JUN 22, 2024 Date Verified: JUN 22, 2024 Hostel Manager E-Sig:/ES/LISA PENDLETON MD Report: PROCEDURES: Placement [...] Using real-time CT fluoroscopy, a 5 Sinhala Yueh centesis catheter was advanced into the [...] Primary Interpreting Staff: LISA PENDLETON MD, RADIOLOGIST (Hostel Manager) /JRT LISA PENDLETON [facility] Jun 22, 2024 11:[address] NEEDLE PLACEMENT (P): FLACA WEAVER [id number] -1950 M Exm Date: JUN 22, 2024@11:48 Req Phys: ANGELA HOLDEN [facility] Loc: [facility]/06-22-2024@17:14 Img Loc: CT IMAGING Service: [place] [address] (Case [id number] COMPLETE) CT SCAN FOR NEEDLE PLACEMENT (CT Detailed) CPT:73982 Reason for Study: l pelvic abscess drain Clinical History: Report Status: Verified Date Reported: JUN 22, 2024 Date Verified: JUN 22, 2024 Hostel Manager E-Sig:/ES/LISA PENDLETON MD Report: PROCEDURES: Placement [...] Using real-time CT fluoroscopy, a 5 Sinhala The RealRealesis catheter was advanced into the collection in [...] Primary Interpreting Staff: LISA PENDLETON MD, RADIOLOGIST (Hostel Manager) /JRT LISA PENDLETON [facility] Jun 21, 2024 06:[address] (AP) ABDOMEN/PELVIS (P): FLACA WEAVER [id number] -1950 M Exm Date: JUN 21, 2024@18:09 Req Phys: DELIA MARTINEZ Loc: [facility] EMERGENCY DEPT WALK-IN (Re Img Loc: CT IMAGING Service: [place] [address] (Case [id number] COMPLETE) CT (AP) ABDOMEN/PELVIS W CONTRAST(CT Detailed) CPT:01213 Contrast Media : Non-ionic Iodinated Reason for [...] PLASMA .CREAT EGFR(CKD-E >90 Ref: >=60 Allergies: ([facility]) TERAZOSIN (Mar 13, 2015) [...] 21, 2024 Date Verified: JUN 21, 2024 Hostel Manager E-Sig:/ALEXI/CARLOS A CUNNINGHAM DO Report: EXAMINATION: [...] Interpreting Staff: CARLOS A CUNNINGHAM DO, RADIOLOGIST (Hostel Manager) /CARLOS A ROWELL [facility] Pathology [...] PORT: Reporting Lab: [facility] [CLIA# [id number]] [place] [address] Accession [UID]: [id number] [[id number]] Received: Jul 16, 2024@14:41 Collection sample: BLOOD Collection date: Jul 16, 2024 14:07 Provider: LEISA GOLDEN Comment on specimen: R AC, RECEIVED 2 BLOOD CULTURE BOTTLES Test(s) ordered: CULTURE & SUSCEPTIBILITY...... completed: Jul 22, 2024 * BACTERIOLOGY FINAL REPORT => Jul 22, 2024 13:39 TECH CODE: [id number] CULTURE RESULTS: NO GROWTH 5 DAYS Bacteriology Remark(s): THIS REPORT IS FINAL =--=--=--=--=--=--=--=--=--= --=--=--=--=--=--=--=--=--=- -=--=--=--=--=--=--=-- Performing Laboratory: Bacteriology Report Performed By: [facility] [CLIA# [id number]] [place] [address] [facility] Jul 16, 2024 01:54 PM LR MICROBIOLOGY RE PORT: Reporting Lab: [facility] [CLIA# [id number]] [place] [address] Accession [UID]: [id number] [[id number]] Received: Jul 16, 2024@14:41 Collection sample: BLOOD Collection date: Jul 16, 2024 13:54 Provider: LEISA GOLDEN Comment on specimen: L AC, RECEIVED 2 BLOOD CULTURE BOTTLES Test(s) ordered: CULTURE & SUSCEPTIBILITY...... completed: Jul 22, 2024 * BACTERIOLOGY FINAL REPORT => Jul 22, 2024 13:39 TECH CODE: [id number] CULTURE RESULTS: NO GROWTH 5 DAYS Bacteriology Remark(s): THIS REPORT IS FINAL =--=--=--=--=--=--=--=--=--= --=--=--=--=--=--=--=--=--=- -=--=--=--=--=--=--=-- Performing Laboratory: Bacteriology Report Performed By: [facility] [CLIA# [id number]] [place] [address] [facility] Jul 03, 2024 05:59 AM LR SURGICAL PATHOL OGY REPORT: LOCAL TITLE: LR SURGICAL PATHOLOGY REPORT STANDARD TITLE: PATHOLOGY REPORT DATE OF NOTE: JUL 06, 2024@10:40:48 ENTRY DATE: JUL 06, 2024@10:40:48 AUTHOR: EDUARDO PALOMARES EXP COSIGNER: URGENCY: STATUS: COMPLETED $APHDR Reporting Lab: [facility] [CLIA# [id number]] [place] [address] - - - - - - - [...] - - - PATHOLOGY REPORT Accession No. [id number] - - - - - - - [...] - PATHOLOGY REPORT Accession No. [id number] - - - - - - - [...] Second circumferential surgical margin, en face; E-F: Deck Hand diverticula; G: Deck Hand section of mesentery; H: Random commissary representative section of additional adipose tissue fragment. [...] One colonic tissue ring, bisected transversely. [facility]. [facility] Microscopic examination performed. DIAGNOSIS: 1. Colon, sigmoid, sigmoidectomy-- - Diverticulosis with perforation and focal abscess formation 2. 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.................. completed: Jun 22, 2024 15:03 CULTURE & SUSCEPTIBILITY...... completed: Jun 25, 2024 * BACTERIOLOGY FINAL REPORT => Jun 25, 2024 10:56 TECH CODE: [id number] GRAM STAIN: DIRECT SMEAR of specimen before [...] Report Performed By: [facility] [CLIA# [id number]] [place] [address] [facility] Jun 22, 2024 01:15 PM LR MICROBIOLOGY RE PORT: Reporting Lab: [facility] [CLIA# [id number]] [place] [id number] Accession [UID]: [id number] [[id number]] Received: Jun 22, 2024@13:38 Collection sample: FLUID Collection date: Jun 22, 2024 13:15 Provider: ANGELA HOLDEN Comment on specimen: LLQ ABSCESS, RECEIVED IN ANAEROBIC TRANSPORT VIAL Test(s) ordered: ANAEROBIC CULTURE............. completed: Jun 28, 2024 * BACTERIOLOGY FINAL REPORT => Jun 28, 2024 10:08 TECH CODE: [id number] CULTURE RESULTS: HEAVY GROWTH MIXED ANAEROBES Comment: [...] Report Performed By: [facility] [CLIA# [id number]] [place] [address] [facility] Jun 21, 2024 06:12 PM LR MICROBIOLOGY RE PORT: Reporting Lab: [facility] [IA# [id number]] [place] [address] Accession [UID]: [id number] [[id number]] Received: Jun 21, 2024@18:12 Collection sample: BLOOD [...] Report Performed By: [facility] [CLIA# [id number]] [place] [address] [facility] Jun 21, 2024 06:11 PM LR MICROBIOLOGY RE PORT: Reporting Lab: [facility] [CLIA# [id number]] [place] [address] Accession [UID]: [id number] [[id number]] Received: Jun 21, 2024@18:11 Collection sample: BLOOD [...] Report Performed By: [facility] [CLIA# [id number]] [place] [address] [facility]
--- OUTSIDE RECORDS SUMMARY | 2024-08-01 08:01 | XMS_ITS | Encounter Summary ---
Author Name [facility] Address [address] [place] [address] Care Team Providers Care Replenishment Buyer Name Role Phone JATINDER CABRERA Primary Care [...] PART A Sep 29, 2016 PART A [id number] [phone] JUDY WEAVER PATIENT Selected Encounter This section includes the information on record at [place] for the Encounter. Date/Time Encounter Type Encounter Description Reason Provider Source Jul 19, 2024 11:05 AM POSTOP FOLLOW-UP VISIT GENERAL SURGERY ICD-10-CM K57.20 Dvtrcli of lg int w perforation and abscess w/o bleeding MARYBETH POWELL Encounter Template Text not used by [place] Assessments - Encounter Diagnoses This section includes the primary and secondary diagnoses documented for the Encounter. Date/Time Primary/Secondary Diagnosis Diagnosis Name Provider Source Jul 31, 2024 01:27 PM PRIMARY Dvtrcli of lg int w perforation and abscess w/o bleeding SOCORRO ARREDONDO [facility] Plan of Treatment: Future Appointments (+ 6 months) and Future Tests (+/- 45 days) The Plan of Treatment section includes future care activities for the patient from all [place] [facility]. This section includes future appointments and future [...] Range Comment Jul 21, 2024 10:38 AM [facility] BASIC METABOLIC PANEL+MG Specimen Type: PLASMA No comment entered. Ordering Provider: SARAI GOLDEN Report Released Date/Time: Jul 20, 2024 06:50 PM Reporting Lab: [facility] [address] Performing Lab: [facility] [address] CREATININE 0.8 mg/dL 0.7-1.2 UREA NITROGEN 31 mg/dL H 8-26 GLUCOSE 120 mg/dL H 70-100 SODIUM 125 mmol/L L 136-145 POTASSIUM 4.4 mmol/L 3.5-5.1 CHLORIDE 100 mmol/L 98-107 CO2 17 mmol/L L 22-29 CALCIUM 9.6 mg/dL 8.4-10.2 MAGNESIUM 1.9 mg/dL 1.6-2.6 ANION GAP 8 mmol/L 5-15 .CREAT EGFR(CKD-EPI) >90 >60 Jul 21, 2024 10:38 AM [facility] CBC Specimen Type: BLOOD No comment entered. Ordering Provider: SARAI GOLDEN Report Released Date/Time: Jul 20, 2024 06:50 PM Reporting Lab: [facility] [address] Performing Lab: [facility] [address] WBC 16.0 H 4.0-11.0 RBC 5.16 4.60-6.20 HGB 15.8 g/dL 13.5-17.9 HCT 45.5 41.0-54.0 MCV 88.2 fL 80.0-100.0 MCH 30.6 pg 27.0-33.0 MCHC 34.7 g/dL 32.0-37.5 PLT 428 H 150-400 MPV 10.8 fL 9.1-13.0 RDW 13.6 11.5-14.5 Jul 20, 2024 01:00 PM [facility] SODIUM,URINE RANDOM Specimen Type: URINE No comment entered. Ordering Provider: SARAI GOLDEN Report Released Date/Time: Jul 20, 2024 08:22 AM Reporting Lab: [facility] [address] Performing Lab: [facility] [address] SODIUM,URINE RANDOM <20 mmol/L Jul 20, 2024 01:00 PM [facility] OSMOLALITY,URINE Specimen Type: URINE No comment entered. Ordering Provider: SARAI GOLDEN Report Released Date/Time: Jul 20, 2024 08:22 AM Reporting Lab: [facility] [address] Performing Lab: [facility] [address] OSMOLALITY,URIN E 648 mosm/kg 500-800 Jul 20, 2024 06:45 AM [facility] BASIC METABOLIC PANEL+MG Specimen Type: PLASMA No comment entered. Ordering Provider: SARAI GOLDEN Report Released Date/Time: Jul 19, 2024 06:13 PM Reporting Lab: [facility] [address] Performing Lab: [facility] [address] CREATININE 0.8 mg/dL 0.7-1.2 UREA NITROGEN 36 mg/dL H 8-26 GLUCOSE 111 mg/dL H 70-100 SODIUM 121 mmol/L L 136-145 POTASSIUM 4.1 mmol/L 3.5-5.1 CHLORIDE 99 mmol/L 98-107 CO2 14 mmol/L L 22-29 CALCIUM 9.5 mg/dL 8.4-10.2 MAGNESIUM 1.8 mg/dL 1.6-2.6 ANION GAP 8 mmol/L 5-15 .CREAT EGFR(CKD-EPI) >90 >60 Jul 20, 2024 06:43 AM [facility] CBC & DIFF Specimen Type: BLOOD Comment: Automated Differential Performed Ordering Provider: SARAI GOLDEN Report Released Date/Time: Jul 19, 2024 06:13 PM Reporting Lab: [facility] [address] Performing Lab: [facility] [address] WBC 16.6 H 4.0-11.0 RBC 4.96 4.60-6.20 [...] H 0.0-0.1 Jul 20, 2024 05:30 AM [facility] OSMOLALITY,SERUM Specimen Type: SERUM No comment entered. Ordering Provider: SARAI GOLDEN Report Released Date/Time: Jul 20, 2024 09:47 AM Reporting Lab: [facility] [address] Performing Lab: [facility] [address] OSMOLALITY,SERU M 266 mosm/kg L 276-305 Jul 19, 2024 08:57 AM [facility] BASIC METABOLIC PANEL+MG Specimen Type: PLASMA No comment entered. Ordering Provider: SARAI GOLDEN Report Released Date/Time: Jul 18, 2024 10:24 PM Reporting Lab: [facility] [address] Performing Lab: [facility] [address] CREATININE 1.0 mg/dL 0.7-1.2 UREA NITROGEN 40 mg/dL H 8-26 GLUCOSE 104 mg/dL H 70-100 SODIUM 129 mmol/L L 136-145 POTASSIUM 3.3 mmol/L L 3.5-5.1 CHLORIDE 104 mmol/L 98-107 CO2 16 mmol/L L 22-29 CALCIUM 8.0 mg/dL L 8.4-10.2 MAGNESIUM 1.7 mg/dL 1.6-2.6 ANION GAP 9 mmol/L 5-15 .CREAT EGFR(CKD-EPI) 80 >60 Jul 19, 2024 08:57 AM [facility] CBC Specimen Type: BLOOD No comment entered. Ordering Provider: SARAI GOLDEN Report Released Date/Time: Jul 18, 2024 10:24 PM Reporting Lab: [facility] [address] Performing Lab: [facility] [address] WBC 17.3 H 4.0-11.0 RBC 4.83 4.60-6.20 HGB 14.8 g/dL 13.5-17.9 HCT 42.6 41.0-54.0 MCV 88.2 fL 80.0-100.0 MCH 30.6 pg 27.0-33.0 MCHC 34.7 g/dL 32.0-37.5 PLT 456 H 150-400 MPV 10.8 fL 9.1-13.0 RDW 13.7 11.5-14.5 Jul 17, 2024 06:55 PM [facility] PHOSPHORUS Specimen Type: PLASMA No comment entered. Ordering Provider: SARAI GOLDEN Report Released Date/Time: Jul 17, 2024 01:54 PM Reporting Lab: [facility] [address] Performing Lab: [facility] [address] PHOSPHORUS 2.9 mg/dL 2.3-4.3 Jul 17, 2024 06:55 PM [facility] BASIC METABOLIC PANEL+MG Specimen Type: PLASMA No comment entered. Ordering Provider: SARAI GOLDEN Report Released Date/Time: Jul 17, 2024 01:54 PM Reporting Lab: [facility] [address] Performing Lab: [facility] [address] CREATININE 1.2 mg/dL 0.7-1.2 UREA NITROGEN 62 mg/dL H 8-26 GLUCOSE 116 mg/dL H 70-100 SODIUM 128 mmol/L L 136-145 POTASSIUM 3.8 mmol/L 3.5-5.1 CHLORIDE 100 mmol/L 98-107 CO2 16 mmol/L L 22-29 CALCIUM 9.3 mg/dL 8.4-10.2 MAGNESIUM 2.1 mg/dL 1.6-2.6 ANION GAP 12 mmol/L 5-15 .CREAT EGFR(CKD-EPI) 64 >60 Jul 17, 2024 07:00 AM [facility] CBC & DIFF Specimen Type: BLOOD Comment: Manual Differential Performed Ordering Provider: SARAI GOLDEN Report Released Date/Time: Jul 16, 2024 04:52 PM Reporting Lab: [facility] [address] Performing Lab: [facility] [address] WBC 18.9 H 4.0-11.0 RBC 5.55 4.60-6.20 [...] MORPHOLOGY PRESENT Jul 17, 2024 07:00 AM [facility] ALBUMIN Specimen Type: PLASMA No comment entered. Ordering Provider: SARAI GOLDEN Report Released Date/Time: Jul 16, 2024 12:12 PM Reporting Lab: [facility] [address] Performing Lab: [facility] [address] ALBUMIN 4.3 g/dL 3.5-5.0 Jul 17, 2024 07:00 AM [facility] COMPREHENSIVE METABOLIC PANEL+MG Specimen Type: PLASMA No comment entered. Ordering Provider: SARAI GOLDEN Report Released Date/Time: Jul 16, 2024 04:52 PM Reporting Lab: [facility] [address] Performing Lab: [facility] [address] CREATININE 1.3 mg/dL H 0.7-1.2 UREA NITROGEN [...] L >60 Jul 16, 2024 07:10 PM [facility] LACTIC ACID Specimen Type: PLASMA No comment entered. Ordering Provider: SARAI GOLDEN Report Released Date/Time: Jul 16, 2024 12:12 PM Reporting Lab: [facility] [address] Performing Lab: [facility] [address] LACTIC ACID 0.9 mmol/L 0.5-2.2 Jul 16, 2024 02:14 PM [facility] MRSA SURVL NARES DNA Specimen Type: NARES No comment entered. Ordering Provider: SARAI GOLDEN Report Released Date/Time: Jul 16, 2024 12:12 PM Reporting Lab: [facility] [address] Performing Lab: [facility] [address] MRSA SURVL NARES DNA NEGATIVE Negative Jul 16, 2024 02:10 PM [facility] LACTIC ACID Specimen Type: PLASMA No comment entered. Ordering Provider: SARAI GOLDEN Report Released Date/Time: Jul 16, 2024 12:12 PM Reporting Lab: [facility] [address] Performing Lab: [facility] [address] LACTIC ACID 0.9 mmol/L 0.5-2.2 Jul 16, 2024 02:08 PM [facility] COMPREHENSIVE METABOLIC PANEL+MG Specimen Type: PLASMA No comment entered. Ordering Provider: SARAI GOLDEN Report Released Date/Time: Jul 16, 2024 12:12 PM Reporting Lab: [facility] [address] Performing Lab: [facility] [address] CREATININE 2.0 mg/dL H 0.7-1.2 UREA NITROGEN [...] L >60 Jul 16, 2024 02:08 PM [facility] CBC & DIFF Specimen Type: BLOOD Comment: Manual Differential Performed Ordering Provider: SARAI GOLDEN Report Released Date/Time: Jul 16, 2024 12:12 PM Reporting Lab: [facility] [address] Performing Lab: [facility] [address] WBC 19.7 H 4.0-11.0 RBC 5.39 4.60-6.20 [...] MORPHOLOGY PRESENT Jul 10, 2024 07:16 AM [facility] PHOSPHORUS Specimen Type: PLASMA No comment entered. Ordering Provider: JUANCARLOS ECHOLS Report Released Date/Time: Jul 09, 2024 12:23 PM Reporting Lab: [facility] [address] Performing Lab: [facility] [address] PHOSPHORUS 3.0 mg/dL 2.3-4.3 Jul 10, 2024 07:16 AM [facility] BASIC METABOLIC PANEL+MG Specimen Type: PLASMA No comment entered. Ordering Provider: JUANCARLOS ECHOLS S Report Released Date/Time: Jul 09, 2024 12:23 PM Reporting Lab: [facility] [address] Performing Lab: [facility] [address] CREATININE 0.7 mg/dL 0.7-1.2 UREA NITROGEN 27 [...] 2024 12:23 PM Reporting Lab: [facility] [address] Performing Lab: [facility] [address] WBC 18.8 H 4.0-11.0 RBC 5.08 4.60-6.20 [...] 2024 06:18 PM Reporting Lab: [facility] [address] Performing Lab: [facility] [address] WBC 15.3 H 4.0-11.0 RBC 4.91 4.60-6.20 [...] 2024 08:41 AM Reporting Lab: [facility] [address] Performing Lab: [facility] [address] URINE COLOR YELLOW SPECIFIC GRAVITY >1.050 H [...] 2024 04:49 PM Reporting Lab: [facility] [address] Performing Lab: [facility] [address] WBC 17.5 H 4.0-11.0 RBC 4.88 4.60-6.20 [...] 2024 04:49 PM Reporting Lab: [facility] [address] Performing Lab: [facility] [address] PHOSPHORUS 2.6 mg/dL 2.3-4.3 Jul 08, 2024 09:54 AM [facility] BASIC METABOLIC PANEL+MG Specimen Type: PLASMA Comment: Specimen received in Lab at: [id number] Ordering Provider: JUANCARLOS ECHOLS S Report Released Date/Time: Jul 07, 2024 04:49 PM Reporting Lab: [facility] [address] Performing Lab: [facility] [address] CREATININE 0.9 mg/dL 0.7-1.2 UREA NITROGEN 26 [...] 2024 12:26 PM Reporting Lab: [facility] [address] Performing Lab: [facility] [address] C DIFF TOX B GENE PCR NEGATIVE Negative Jul 07, 2024 07:41 AM [facility] PHOSPHORUS Specimen Type: PLASMA No comment entered. Ordering Provider: JEVON ZAZUETA Report Released Date/Time: Jul 06, 2024 03:44 PM Reporting Lab: [facility] [address] Performing Lab: [facility] [address] PHOSPHORUS 3.1 mg/dL 2.3-4.3 Jul 07, 2024 07:41 AM [facility] BASIC METABOLIC PANEL+MG Specimen Type: PLASMA No comment entered. Ordering Provider: JEVON ZAZUETA Report Released Date/Time: Jul 06, 2024 03:44 PM Reporting Lab: [facility] [address] Performing Lab: [facility] [address] CREATININE 0.9 mg/dL 0.7-1.2 UREA NITROGEN 20 [...] 2024 03:44 PM Reporting Lab: [facility] [address] Performing Lab: [facility] [address] WBC 21.2 H 4.0-11.0 RBC 5.09 4.60-6.20 [...] 2024 01:22 PM Reporting Lab: [facility] [address] Performing Lab: [facility] [address] WBC 18.0 H 4.0-11.0 RBC 4.83 4.60-6.20 [...] 2024 01:22 PM Reporting Lab: [facility] [address] Performing Lab: [facility] [address] PHOSPHORUS 3.6 mg/dL 2.3-4.3 Jul 06, 2024 07:21 AM [facility] BASIC METABOLIC PANEL+MG Specimen Type: PLASMA No comment entered. Ordering Provider: JEVON ZAZUETA Report Released Date/Time: Jul 05, 2024 01:22 PM Reporting Lab: [facility] [address] Performing Lab: [facility] [address] CREATININE 0.7 mg/dL 0.7-1.2 UREA NITROGEN 12 [...] 2024 09:39 AM Reporting Lab: [facility] [address] Performing Lab: [facility] [address] MAGNESIUM 2.0 mg/dL 1.6-2.6 Jul 05, 2024 07:17 AM [facility] PHOSPHORUS Specimen Type: PLASMA No comment entered. Ordering Provider: JUANCARLOS ECHOLS S Report Released Date/Time: Jul 04, 2024 09:39 AM Reporting Lab: [facility] [address] Performing Lab: [facility] [address] PHOSPHORUS 2.0 mg/dL L 2.3-4.3 Jul 05, 2024 07:17 AM [facility] BASIC METABOLIC PANEL+MG Specimen Type: PLASMA No comment entered. Ordering Provider: JUANCARLOS ECHOLS S Report Released Date/Time: Jul 04, 2024 09:39 AM Reporting Lab: [facility] [address] Performing Lab: [facility] [address] CREATININE 0.7 mg/dL 0.7-1.2 UREA NITROGEN 12 [...] 2024 09:39 AM Reporting Lab: [facility] [address] Performing Lab: [facility] [address] WBC 18.3 H 4.0-11.0 RBC 4.49 L [...] 2024 06:31 PM Reporting Lab: [facility] [address] Performing Lab: [facility] [address] PHOSPHORUS 2.8 mg/dL 2.3-4.3 Jul 04, 2024 07:17 AM [facility] BASIC METABOLIC PANEL+MG Specimen Type: PLASMA No comment entered. Ordering Provider: GABINO CAMERON Report Released Date/Time: Jul 03, 2024 06:31 PM Reporting Lab: [facility] [address] Performing Lab: [facility] [address] CREATININE 0.7 mg/dL 0.7-1.2 UREA NITROGEN 16 mg/dL 8-26 GLUCOSE 129 mg/dL H 70-100 SODIUM 137 mmol/L 136-145 POTASSIUM 3.7 mmol/L 3.5-5.1 CHLORIDE 107 mmol/L 98-107 CO2 22 mmol/L 22-29 CALCIUM 9.0 mg/dL 8.4-10.2 MAGNESIUM 1.9 mg/dL 1.6-2.6 ANION GAP 8 mmol/L 5-15 .CREAT EGFR(CKD-EPI) >90 >60 Jul 04, 2024 07:16 AM [facility] CBC Specimen Type: BLOOD No comment entered. Ordering Provider: GABINO CAMERON Report Released Date/Time: Jul 03, 2024 06:31 PM Reporting Lab: [facility] [address] Performing Lab: [facility] [address] WBC 20.6 H 4.0-11.0 RBC 4.63 4.60-6.20 [...] 2024 06:31 PM Reporting Lab: [facility] [address] Performing Lab: [facility] [address] WBC 20.6 H 4.0-11.0 RBC 4.63 4.60-6.20 [...] 2024 06:31 PM Reporting Lab: [facility] [address] Performing Lab: [facility] [address] BNP 292 pg/mL H <99 Jul 03, 2024 10:32 PM [facility] FINGERSTICK GLUCOSE Specimen Type: BLOOD Comment: Save Result Nurse Notified Ordering Provider: KATELYNN PERSON Report Released Date/Time: Jul 03, 2024 10:50 PM Reporting Lab: [facility] [address] Performing Lab: [facility] [address] FINGERSTICK GLUCOSE 126 mg/dL H 70-100 Jul 03, 2024 05:33 PM [facility] FINGERSTICK GLUCOSE Specimen Type: BLOOD Comment: Save Result Nurse Notified Ordering Provider: KATELYNN PERSON Report Released Date/Time: Jul 03, 2024 05:46 PM Reporting Lab: [facility] [address] Performing Lab: [facility] [address] FINGERSTICK GLUCOSE 141 mg/dL H 70-100 Jul 03, 2024 02:31 PM [facility] POC ABG/ELECTROLYTES Specimen Type: ARTERIAL BLOOD Comment: FIO2 = 97% Patient Temp: 36.0 C Sample Type = ARTERIAL Ordering Provider: MAZIN ARREDONDO Report Released Date/Time: Jul 03, 2024 01:48 PM Reporting Lab: [facility] [address] Performing Lab: [facility] [address] POC PH 7.387 7.35-7.45 POC PCO2 34.4 [...] 2024 01:48 PM Reporting Lab: [facility] [address] Performing Lab: [facility] [address] POC PH 7.280 L 7.35-7.45 POC PCO2 [...] 2024 04:01 PM Reporting Lab: [facility] [address] Performing Lab: [facility] [address] URINE COLOR YELLOW SPECIFIC GRAVITY 1.031 1.003-1.03 [...] 2024 03:59 PM Reporting Lab: [facility] [address] Performing Lab: [facility] [address] WBC 15.8 H 4.0-11.0 RBC 5.11 4.60-6.20 [...] 2024 06:07 PM Reporting Lab: [facility] [address] Performing Lab: [facility] [address] CREATININE 0.8 mg/dL 0.7-1.2 UREA NITROGEN 13 [...] 2024 06:07 PM Reporting Lab: [facility] [address] Performing Lab: [facility] [address] WBC 15.5 H 4.0-11.0 RBC 4.93 4.60-6.20 [...] 2024 05:51 PM Reporting Lab: [facility] [address] Performing Lab: [facility] [address] CREATININE 0.7 mg/dL 0.7-1.2 UREA NITROGEN 16 [...] 2024 05:51 PM Reporting Lab: [facility] [address] Performing Lab: [facility] [address] WBC 14.9 H 4.0-11.0 RBC 5.09 4.60-6.20 [...] 2024 05:51 PM Reporting Lab: [facility] [address] Performing Lab: [facility] [address] CREATININE 0.7 mg/dL 0.7-1.2 UREA NITROGEN 17 [...] >90 >60 Jun 22, 2024 06:10 PM [facility] CBC Specimen Type: BLOOD No comment entered. Ordering Provider: JEVON ZAZUETA Report Released Date/Time: Jun 22, 2024 05:51 PM Reporting Lab: [facility] [address] Performing Lab: [facility] [address] WBC 16.9 H 4.0-11.0 RBC 5.28 4.60-6.20 HGB 16.9 g/dL 13.5-17.9 HCT 50.4 41.0-54.0 MCV 95.5 fL 80.0-100.0 MCH 32.0 pg 27.0-33.0 MCHC 33.5 g/dL 32.0-37.5 PLT 223 150-400 MPV 10.9 fL 9.1-13.0 RDW 14.0 11.5-14.5 Jun 21, 2024 06:48 PM [facility] URINALYSIS Specimen Type: URINE No comment entered. Ordering Provider: DELIA MARTINEZ Report Released Date/Time: Jun 21, 2024 05:45 PM Reporting Lab: [facility] [address] Performing Lab: [facility] [address] URINE COLOR YELLOW SPECIFIC GRAVITY 1.041 H [...] 2024 06:07 PM Reporting Lab: [facility] [address] Performing Lab: [facility] [address] POC CREATININE 1.1 mg/dL 0.6-1.3 Jun 21, 2024 05:30 PM [facility] POC ABG/LACTATE Specimen Type: VENOUS BLOOD No comment entered. Ordering Provider: DELIA MARTINEZ Report Released Date/Time: Jun 21, 2024 06:07 PM Reporting Lab: [facility] [address] Performing Lab: [facility] [address] POC PH 7.470 H 7.31-7.41 POC PCO2 [...] 2024 05:30 PM Reporting Lab: [facility] [address] Performing Lab: [facility] [address] .INR 1.2 H 0.8-1.1 .PT 13.9 s H 9.4-12.5 Jun 21, 2024 05:24 PM [facility] LIPASE Specimen Type: PLASMA No comment entered. Ordering Provider: DELIA MARTINEZ Report Released Date/Time: Jun 21, 2024 05:30 PM Reporting Lab: [facility] [address] Performing Lab: [facility] [address] LIPASE 32 U/L <60 Jun 21, 2024 05:24 PM [facility] EXTRA GOLD GEL TUBE Specimen Type: SERUM No comment entered. Ordering Provider: DELIA MARTINEZ Report Released Date/Time: Jun 21, 2024 05:41 PM Reporting Lab: [facility] [address] Performing Lab: [facility] [address] EXTRA GOLD GEL TUBE RECEIVED Jun 21, 2024 05:24 PM [facility] COMPREHENSIVE METABOLIC PANEL+MG Specimen Type: PLASMA No comment entered. Ordering Provider: DELIA MARTINEZ Report Released Date/Time: Jun 21, 2024 05:30 PM Reporting Lab: [facility] [address] Performing Lab: [facility] [address] CREATININE 0.9 mg/dL 0.7-1.2 UREA NITROGEN 29 [...] 2024 05:30 PM Reporting Lab: [facility] [address] Performing Lab: [facility] [address] WBC 21.3 H 4.0-11.0 RBC 5.48 4.60-6.20 [...] Height Weight Body Mass Index Source Jul 19, 2024 11:29 PM 7 [facility] Jul 19, 2024 05:39 PM 4 [facility] Jul 19, 2024 05:23 PM 8 [facility] Jul 19, 2024 12:50 PM 2 [facility] Jul 19, 2024 11:03 AM 8 [facility] Social History: Smoking Status [...] 2016 CLINICAL WARNING [facility] Radiology Reports: +/- 30 days [...] 06:15 PM CHEST 1 VIEW: FLACA WEAVER [id number] -[id number] M Exm Date: JUL 18, 2024@18:15 Req Phys: LEISA GOLDEN Pat Loc: 07-18-2024@19:00 Img Loc: MAIN X-RAY Service: [place] [address] (Case [id number] COMPLETE) CHEST 1 VIEW (RAD Detailed) CPT:64413 Proc Modifiers : PORTABLE EXAM Reason for Study: SOB Clinical History: [place] IS NOT under investigation for COVID-19 or is COVID-19 negative 73 yo with SOB Responsible provider name and phone number to notify for critical findings if other than user placing the order and pager listed below: User placing orders pager: [phone] LAST CREATININE 1.2 (07/17/24) Report Status: Verified Date Reported: JUL 18, 2024 Date Verified: JUL 18, 2024 Angular J[employer] Developer E-Sig:/ES/CARLOS A CUNNINGHAM DO Report: EXAMINATION: CHEST 1 VIEW Reason for Study: SOB IS NOT under investigation for COVID-19 or is COVID-19 negative 73 yo with SOB Responsible provider name and phone number to notify for critical findings if other than user placing the order and pager listed below: User placing orders pager: [phone] LAST CREATININE 1.2 (07/17/24) SOB TECHNIQUE: Single [...] Interpreting Staff: CARLOS A CUNNINGHAM DO, RADIOLOGIST (Angular Js Developer) /CARLOS A ROWELL [facility] Jul 16, 2024 07:[address] ABDOMEN/PELVIS: FLACA WEAVER YAMIL [id number] -1950 Exm Date: JUL 16, 2024@07:49 Req Phys: JATINDER CABRERA Loc: 07-17-2024@09:02 Img Loc: OUTSOURCE CT Service: Unknown (Case [id number] COMPLETE) NON SD CT ABDOMEN/PELVIS (CT Detailed) CPT:97245 Reason for Study: outside study Clinical History: [...] BY: / *ELECTRONICALLY FILED* [facility] Jul 13, 2024 09:[address] ABDOMEN/PELVIS: FLACA WEAVER [id number] -1950 M Exm Date: JUL 13, 2024@09:41 Req Phys: KEOFLACAJATINDER [place] Patel Loc: 3ES07-17-2024@09:08 Img Loc: OUTSOURCE CT Service: Unknown (Case [id number] COMPLETE) NON SD CT ABDOMEN/PELVIS (CT Detailed) CPT:34632 Reason for Study: outside study Clinical History: [...] BY: / *ELECTRONICALLY FILED* [facility] Jul 08, 2024 10:09 AM CHEST 2 VIEWS PA AND LAT: FLACA WEAVER [id number] -1950 M Exm Date: JUL 08, 2024@10:09 Req Phys: KATELYNN PERSON Loc: 2KG07-08-2024@11:49 Img Loc: MAIN X-RAY Service: [place] [place] [address] (Case 24 COMPLETE) CHEST 2 VIEWS PA AND LAT (RAD Detailed) CPT:46922 Reason for Study: Uptrending WBC, POD 5 Clinical History: [place] IS NOT under investigation for COVID-19 or is COVID-19 negative POD 5, work up for uptrending wbc Responsible provider name and phone number to notify for critical findings if other than user placing the order and pager listed below: User placing orders pager: Katelynn Person LAST CREATININE 0.9 (07/07/24) Report Status: Verified Date Reported: JUL 08, 2024 Date Verified: JUL 08, 2024 Angular Js Developer E-Sig: Report: CHEST 2 VIEWS PA [...] cardiopulmonary disease. READING PHYSICIAN: Sarbjit Vaughn M.D. -[phone] 07/08/2024 12:46 EST [facility] [phone] (For Medical Practitioner Use Only) Attention Patients / Veterans: If you have questions or concerns about these test results, please contact your ordering provider or primary care team. Primary Interpreting Staff: RADIOLOGY,OUTSIDE SERVICE, Staff Physician / RADIOLOGY,OUTSIDE SERVICE [facility] Jul 08, 2024 10:[address] (AP) ABDOMEN/PELVIS W CONTRAST: MEGFLAAC YAMIL [id number] -1950 M Exm Date: JUL 08, 2024@10:00 Req Phys: KATELYNN PERSON [facility] Loc: [facility]/07-08-2024@12:07 Img Loc: CT IMAGING Service: [place] [address] (Case 22 COMPLETE) CT (AP) ABDOMEN/PELVIS W CONTRAST(CT Detailed) CPT:37338 Contrast Media : Non-ionic Iodinated Reason for [...] 08, 2024 Date Verified: JUL 08, 2024 Angular Js Developer E-Sig: Report: CT (AP) ABDOMEN/PELVIS W [...] as noted above READING PHYSICIAN: Celestino Blanc -[phone] 07/08/2024 13:04 EST [facility] [phone] (For Medical Practitioner Use Only) Attention Patients / Veterans: If you have questions or concerns about these test results, please contact your ordering provider or primary care team. Primary Interpreting Staff: RADIOLOGY,OUTSIDE SERVICE, Staff Physician / RADIOLOGY,OUTSIDE SERVICE [facility] Jun 22, 2024 11:49 AM ABSCESS DRAIN PLACEMENT PERITONEAL (P): MEGFLACADARCI LOBO [id number] -1950 M Exm Date: JUN 22, 2024@11:49 Req Phys: ANGELA HOLDEN Pat Loc: [facility]/06-22-2024@17:14 Img Loc: INTERVENTIONAL RADIOLOGY Service: [place] [address] (Case [id number] COMPLETE) IR PERITONEAL/RETROPERITONEAL PER(ANI Detailed) CPT:80028 Reason for Study: diverticulitis with abscess (Case 3570 COMPLETE) IR MOD SEDATION 10-22 MIN (ANI Detailed) CPT:57007 Clinical History: IS NOT under investigation for COVID-19 or is COVID-19 negative 73 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 please place abscess drain. Contact number for responsible provider who can be reached for any questions or notifications of critical findings: [phone] n/a LAST CREATININE 0.9 (06/21/24) Report Status: Verified Date Reported: JUN 22, 2024 Date Verified: JUN 22, 2024 Angular Js Developer E-Sig:/ES/LISA PEDNLETON MD Report: PROCEDURES: Placement of abscess drainage [...] Using real-time CT fluoroscopy, a 5 [place] OfferIQesis catheter was advanced into the collection in [...] Primary Interpreting Staff: LISA PENDLETON MD, RADIOLOGIST (Angular Js Developer) /LISA CARDONA [facility] Jun 22, 2024 11:[address] NEEDLE PLACEMENT (P): FLACA WEAVER [id number] -1950 M Exm Date: JUN 22, 2024@11:48 Req Phys: ANGELA HOLDEN Loc: [facility]/06-22-2024@17:14 Img Loc: CT IMAGING Service: [place] [address] (Case [id number] COMPLETE) CT SCAN FOR NEEDLE PLACEMENT (CT Detailed) CPT:57375 Reason for Study: l pelvic abscess drain Clinical History: Report Status: Verified Date Reported: JUN 22, 2024 Date Verified: JUN 22, 2024 Angular Js Developer E-Sig:/ES/LISA PENDLETON MD Report: PROCEDURES: Placement [...] Using real-time CT fluoroscopy, a 5 [place] OfferIQesis catheter was advanced into the collection in [...] Primary Interpreting Staff: LISA PENDLETON MD, RADIOLOGIST (Angular Js Developer) /JRT LISA PENDLETON [facility] Jun 21, 2024 06:[address] (AP) ABDOMEN/PELVIS (P): FLACA WEAVER [id number] -1950 M Exm Date: JUN 21, 2024@18:09 Req Phys: DELIA MARTINEZ Loc: [facility] EMERGENCY DEPT WALK-IN (Re Img Loc: CT IMAGING Service: [place] [address] (Case [id number] COMPLETE) CT (AP) ABDOMEN/PELVIS W CONTRAST(CT Detailed) CPT:38452 Contrast Media : Non-ionic Iodinated Reason for [...] Allergies: ([place] only) TERAZOSIN (Mar 13, 2015) Defer to [...] 21, 2024 Date Verified: JUN 21, 2024 Angular Js Developer E-Sig:/ES/CARLOS A CUNNINGHAM DO Report: EXAMINATION: [...] Interpreting Staff: CARLOS A CUNNINGHAM DO, RADIOLOGIST (Angular Js Developer) /CARLOS A ROWELL [facility] Pathology Reports: +/- 30 [...] PORT: Reporting Lab: [facility] [CLIA# [id number]] [place] [address] Accession [UID]: [id number] [[id number]] Received: Jul 16, 2024@14:41 Collection sample: BLOOD Collection date: Jul 16, 2024 14:07 Provider: LEISA GOLDEN Comment on specimen: R AC, RECEIVED 2 BLOOD CULTURE BOTTLES Test(s) ordered: CULTURE & SUSCEPTIBILITY...... completed: Jul 22, 2024 * BACTERIOLOGY FINAL REPORT => Jul 22, 2024 13:39 TECH CODE: [id number] CULTURE RESULTS: NO GROWTH 5 DAYS Bacteriology Remark(s): THIS REPORT IS FINAL =--=--=--=--=--=--=--=--=--= --=--=--=--=--=--=--=--=--=- -=--=--=--=--=--=--=-- Performing Laboratory: Bacteriology Report Performed By: [facility] [CLIA# [id number]] [place] [address] [facility] Jul 16, 2024 01:54 PM LR MICROBIOLOGY RE PORT: Reporting Lab: [facility] [CLIA# [id number]] [place] [address] Accession [UID]: [id number] [[id number]] Received: Jul 16, 2024@14:41 Collection sample: BLOOD Collection date: Jul 16, 2024 13:54 Provider: LEISA GOLDEN Comment on specimen: L AC, RECEIVED 2 BLOOD CULTURE BOTTLES Test(s) ordered: CULTURE & SUSCEPTIBILITY...... completed: Jul 22, 2024 * BACTERIOLOGY FINAL REPORT => Jul 22, 2024 13:39 TECH CODE: [id number] CULTURE RESULTS: NO GROWTH 5 DAYS Bacteriology Remark(s): THIS REPORT IS FINAL =--=--=--=--=--=--=--=--=--= --=--=--=--=--=--=--=--=--=- -=--=--=--=--=--=--=-- Performing Laboratory: Bacteriology Report Performed By: [facility] [CLIA# [id number]] [place] [address] [facility] Jul 03, 2024 05:59 AM LR SURGICAL PATHOL OGY REPORT: LOCAL TITLE: LR SURGICAL PATHOLOGY REPORT STANDARD TITLE: PATHOLOGY REPORT DATE OF NOTE: JUL 06, 2024@10:40:48 ENTRY DATE: JUL 06, 2024@10:40:48 AUTHOR: EDUARDO PALOMARES EXP COSIGNER: URGENCY: STATUS: COMPLETED $APHDR Reporting Lab: [facility] [CLIA# [id number]] [place] [address] - - - - - - - [...] - - - PATHOLOGY REPORT Accession No. [id number] - - - - - - - [...] - PATHOLOGY REPORT Accession No. [id number] - - - - - - - [...] Second circumferential surgical margin, en face; E-F: Gusset Ripper diverticula; G: Gusset Ripper section of mesentery; H: Random outside industrial sales representative section of additional adipose tissue [...] One colonic tissue ring, bisected transversely. [facility] MICROSCOPIC DESCRIPTION: Microscopic examination performed. DIAGNOSIS: 1. Colon, sigmoid, sigmoidectomy-- - Diverticulosis with perforation and focal abscess formation 2. Colon, anastomotic rings, excision-- - Viable colonic mucosa without diagnostic abnormality /alexi/ EDUARDO PALOMARES MD STAFF PATHOLOGIST Signed Jul 06, 2024@10:40 Performing Laboratory: Surgical Pathology Report Performed By: [facility] [CLIA# [id number]] [place] [address] $FTR - - - - - - [...] - - FLACA WEAVER STANDARD FORM 515 ID:[id number] SEX:M :1950 AGE: 73 LOC:48340 ADM:Jun DX:DIVERTICULITIS PCP: Jatinder Cabrera /alexi/ EDUARDO PALOMARES MD STAFF PATHOLOGIST Signed: 07/06/2024 10:40 EDUARDO PALOMARES [facility] Jun 22, 2024 01:15 PM LR MICROBIOLOGY RE PORT: Reporting Lab: [facility] [CLIA# [id number]] [place] [address] Accession [UID]: [id number] [[id number]] Received: Jun 22, 2024@13:38 Collection sample: FLUID Collection date: Jun 22, 2024 13:15 Provider: ANGELA HOLDEN Comment on specimen: LLQ ABSCESS, RECEIVED IN ANAEROBIC TRANSPORT VIAL Test(s) ordered: GRAM STAIN.................... completed: Jun 22, 2024 15:03 CULTURE & SUSCEPTIBILITY...... completed: Jun 25, 2024 * BACTERIOLOGY FINAL REPORT => Jun 25, 2024 10:56 TECH CODE: [id number] GRAM STAIN: DIRECT SMEAR of specimen before [...] Report Performed By: [facility] [CLIA# [id number]] [place] [address] [facility] Jun 22, 2024 01:15 PM LR MICROBIOLOGY RE PORT: Reporting Lab: [facility] [CLIA# [id number]] [place] [address] Accession [UID]: [id number] [[id number]] Received: Jun 22, 2024@13:38 Collection sample: FLUID Collection date: Jun 22, 2024 13:15 Provider: ANGELA HOLDEN Comment on specimen: LLQ ABSCESS, RECEIVED IN ANAEROBIC TRANSPORT VIAL Test(s) ordered: ANAEROBIC CULTURE............. completed: Jun 28, 2024 * BACTERIOLOGY FINAL REPORT => Jun 28, 2024 10:08 TECH CODE: [id number] CULTURE RESULTS: HEAVY GROWTH MIXED ANAEROBES Comment: [...] Report Performed By: [facility] [CLIA# [id number]] [place] [address] [facility] Jun 21, 2024 06:12 PM LR MICROBIOLOGY RE PORT: Reporting Lab: [facility] [CLIA# [id number]] [place] [address] Accession [UID]: [id number] [[id number]] Received: Jun 21, 2024@18:12 Collection sample: BLOOD [...] Report Performed By: [facility] [CLIA# [id number]] [place] [address] [facility] Jun 21, 2024 06:11 PM LR MICROBIOLOGY RE PORT: Reporting Lab: [facility] [CLIA# [id number]] [place] [address] Accession [UID]: [id number] [[id number]] Received: Jun 21, 2024@18:11 Collection sample: BLOOD [...] Report Performed By: [facility] [CLIA# [id number]] [place] [address] [facility] Encounter Notes: All associated encounter notes This section contains the clinical notes associated to the Encounter. Date/Time Encounter Note(s) Provider Source Jul 19, 2024 11:05 AM SURGERY ATTENDING INPATIENT NOTE: LOCAL TITLE: GENERAL SURGERY INPT PROGRESS NOTE STANDARD TITLE: SURGERY ATTENDING INPATIENT NOTE DATE OF NOTE: JUL 19, 2024@11:05 ENTRY DATE: JUL 19, 2024@11:06:09 AUTHOR: LESLEE BRUNO COSIGNER: URGENCY: STATUS: COMPLETED INPATIENT PROGRESS NOTE Subjective: Patient feeling well today. Tolerating regular diet. He refused fiber supplement yesterday. On discussion, he is agreeable to fiber today. Denies any abdominal pain, n/v. He is passing urine and his recorded loop ileostomy output is 1800 mls. Objective: General: Awake, Alert, Oriented X3, No apparent distress. Sitting at edge of bed having a regular diet. Cardio: regular rate Lungs: normal work of breathing. No NC in-situ Abd: soft, nontender, nondistended. Ostomy output liquid stool with some dark fluid. Hasn't been wearing his binder. Extrem: moves all 4 extremities Neuro: A&O [...] TAB 1 TABLET PO ACTIVE QID 6) NALOXONE INJ,SOLN 0.4MG/1ML IV PRN For opioid ACTIVE overdose (difficult to arouse and RR<8). Call provider or FIELD TECH. May repeat every 2-3 min up to 3 total doses. Administer INTRAMUSCULARLY if no IV access. 7) ONDANSETRON INJ,SOLN 4MG/2ML IV Q6H PRN FOR NAUSEA ACTIVE 8) OXYCODONE TAB 5MG PO Q6H PRN FOR PAIN ACTIVE 9) PIPERACILLIN/TAZOBACTAM 4.5GM 100ML INJ in ACTIVE PIPERACIL/TAZOB 4.5GM PREMIX 100 ML INFUSE OVER 30 Minutes Pharmacy Confirmation #: [id number] IVPB Q6H 10) PSYLLIUM (INPT) POWDER,ORAL 1 [...] TOTAL 0.8 (07/17/24) Imaging No new imaging Last imaging showed Incisional Hernia: fascial dehiscence into subcutaneous tissue that extends into his skin staple line Assessment/Plan: 74 y/o with PMHx CAD, HLD, [...] manage his hernia nonoperatively with conservative interventions. Plan: - Continue fiber and loperamide to lower ileostomy output. Continue close monitoring and recording of ileostomy output - As long as patient intaking appropriate amount of fluids, no need for further IVF - consider replacement IVF for poor PO intake or high ostomy output - Continue regular diet - Abdominal binder - Follow-up bloods and WBC trend - Today last day of Scarlett Mccray MD Plastic Surgery Resident, PGY-1 This case seen and d/w chief cardiopulmonary technologist who will/has discussed with staff This note signed by me, Leslee Bruno, d/t CPRS access issues. I have personally reviewed this note /alexi/ LESLEE BRUNO MD Signed: 07/19/2024 16:24 Receipt Acknowledged By: 07/31/2024 13:32 /alexi/ WENCESLAO ARREDONDO MD STAFF SURGEON, COLON/RECTAL LESLEE BRUNO [facility]
--- OUTSIDE RECORDS SUMMARY | 2024-08-01 08:01 | XMS_ITS | Encounter Summary ---
Author Name [facility] [facility] [place] Address [address] [place] [address] Care Team Providers Care Glove Turner And Former Name Role Phone JATINDER CABRERA Primary [...] PART A Sep 29, 2016 PART A [id number] [phone] JUDY WEAVER PATIENT Selected Encounter This section includes the information on record at [place] for the Encounter. Date/Time Encounter Type Encounter Description Reason Pro vider Source Jul 18, 2024 01:00 AM Inpatient Visit ADMIN PAT ACTIVTIES ([employer]) SYSTEM,CIS-[facility] IHE Encounter Template Text not used [...] of theEncounter. The [facility]. Test Date/Time Test Type Test [...] WC [facility] Jul 16, [...] Comment Jul 21, 2024 10:38 AM [facility] BASIC METABOLIC PANEL+MG Specimen Type: PLASMA No comment entered. Ordering Provider: SARAI GOLDEN Report Released Date/Time: Jul 20, 2024 06:50 PM Reporting Lab: [facility] [address] Performing Lab: [facility] [address] CREATININE 0.8 mg/dL 0.7-1.2 UREA NITROGEN 31 mg/dL H 8-26 GLUCOSE 120 mg/dL H 70-100 SODIUM 125 mmol/L L 136-145 POTASSIUM 4.4 mmol/L 3.5-5.1 CHLORIDE 100 mmol/L 98-107 CO2 17 mmol/L L 22-29 CALCIUM 9.6 mg/dL 8.4-10.2 MAGNESIUM 1.9 mg/dL 1.6-2.6 ANION GAP 8 mmol/L 5-15 .CREAT EGFR(CKD-EPI) >90 >60 Jul 21, 2024 10:38 AM [facility] CBC Specimen Type: BLOOD No comment entered. Ordering Provider: SARAI GOLDEN Report Released Date/Time: Jul 20, 2024 06:50 PM Reporting Lab: [facility] [address] Performing Lab: [facility] [address] WBC 16.0 H 4.0-11.0 RBC 5.16 4.60-6.20 HGB 15.8 g/dL 13.5-17.9 HCT 45.5 41.0-54.0 MCV 88.2 fL 80.0-100.0 MCH 30.6 pg 27.0-33.0 MCHC 34.7 g/dL 32.0-37.5 PLT 428 H 150-400 MPV 10.8 fL 9.1-13.0 RDW 13.6 11.5-14.5 Jul 20, 2024 01:00 PM [facility] SODIUM,URINE RANDOM Specimen Type: URINE No comment entered. Ordering Provider: SARAI GOLDEN Report Released Date/Time: Jul 20, 2024 08:22 AM Reporting Lab: [facility] [address] Performing Lab: [facility] [address] SODIUM,URINE RANDOM <20 mmol/L Jul 20, 2024 01:00 PM [facility] OSMOLALITY,URINE Specimen Type: URINE No comment entered. Ordering Provider: SARAI GOLDEN Report Released Date/Time: Jul 20, 2024 08:22 AM Reporting Lab: [facility] [address] Performing Lab: [facility] [address] OSMOLALITY,URIN E 648 mosm/kg 500-800 Jul 20, 2024 06:45 AM [facility] BASIC METABOLIC PANEL+MG Specimen Type: PLASMA No comment entered. Ordering Provider: SARAI GOLDEN Report Released Date/Time: Jul 19, 2024 06:13 PM Reporting Lab: [facility] [address] Performing Lab: [facility] [address] CREATININE 0.8 mg/dL 0.7-1.2 UREA NITROGEN 36 mg/dL H 8-26 GLUCOSE 111 mg/dL H 70-100 SODIUM 121 mmol/L L 136-145 POTASSIUM 4.1 mmol/L 3.5-5.1 CHLORIDE 99 mmol/L 98-107 CO2 14 mmol/L L 22-29 CALCIUM 9.5 mg/dL 8.4-10.2 MAGNESIUM 1.8 mg/dL 1.6-2.6 ANION GAP 8 mmol/L 5-15 .CREAT EGFR(CKD-EPI) >90 >60 Jul 20, 2024 06:43 AM [facility] CBC & DIFF Specimen Type: BLOOD Comment: Automated Differential Performed Ordering Provider: SARAI GOLDEN Report Released Date/Time: Jul 19, 2024 06:13 PM Reporting Lab: [facility] [address] Performing Lab: [facility] [address] WBC 16.6 H 4.0-11.0 RBC 4.96 4.60-6.20 [...] 0.0-0.1 Jul 20, 2024 05:30 AM [facility] OSMOLALITY,SERUM Specimen Type: SERUM No comment entered. Ordering Provider: SARAI GOLDEN Report Released Date/Time: Jul 20, 2024 09:47 AM Reporting Lab: [facility] [address] Performing Lab: [facility] [address] OSMOLALITY,SERU M 266 mosm/kg L 276-305 Jul 19, 2024 08:57 AM [facility] BASIC METABOLIC PANEL+MG Specimen Type: PLASMA No comment entered. Ordering Provider: SARAI GOLDEN Report Released Date/Time: Jul 18, 2024 10:24 PM Reporting Lab: [facility] [address] Performing Lab: [facility] [address] CREATININE 1.0 mg/dL 0.7-1.2 UREA NITROGEN 40 mg/dL H 8-26 GLUCOSE 104 mg/dL H 70-100 SODIUM 129 mmol/L L 136-145 POTASSIUM 3.3 mmol/L L 3.5-5.1 CHLORIDE 104 mmol/L 98-107 CO2 16 mmol/L L 22-29 CALCIUM 8.0 mg/dL L 8.4-10.2 MAGNESIUM 1.7 mg/dL 1.6-2.6 ANION GAP 9 mmol/L 5-15 .CREAT EGFR(CKD-EPI) 80 >60 Jul 19, 2024 08:57 AM [facility] CBC Specimen Type: BLOOD No comment entered. Ordering Provider: SARAI GOLDEN Report Released Date/Time: Jul 18, 2024 10:24 PM Reporting Lab: [facility] [address] Performing Lab: [facility] [address] WBC 17.3 H 4.0-11.0 RBC 4.83 4.60-6.20 HGB 14.8 g/dL 13.5-17.9 HCT 42.6 41.0-54.0 MCV 88.2 fL 80.0-100.0 MCH 30.6 pg 27.0-33.0 MCHC 34.7 g/dL 32.0-37.5 PLT 456 H 150-400 MPV 10.8 fL 9.1-13.0 RDW 13.7 11.5-14.5 Jul 17, 2024 06:55 PM [facility] PHOSPHORUS Specimen Type: PLASMA No comment entered. Ordering Provider: SARAI GOLDEN Report Released Date/Time: Jul 17, 2024 01:54 PM Reporting Lab: [facility] [address] Performing Lab: [facility] [address] PHOSPHORUS 2.9 mg/dL 2.3-4.3 Jul 17, 2024 06:55 PM [facility] BASIC METABOLIC PANEL+MG Specimen Type: PLASMA No comment entered. Ordering Provider: SARAI GOLDEN Report Released Date/Time: Jul 17, 2024 01:54 PM Reporting Lab: [facility] [address] Performing Lab: [facility] [address] CREATININE 1.2 mg/dL 0.7-1.2 UREA NITROGEN 62 mg/dL H 8-26 GLUCOSE 116 mg/dL H 70-100 SODIUM 128 mmol/L L 136-145 POTASSIUM 3.8 mmol/L 3.5-5.1 CHLORIDE 100 mmol/L 98-107 CO2 16 mmol/L L 22-29 CALCIUM 9.3 mg/dL 8.4-10.2 MAGNESIUM 2.1 mg/dL 1.6-2.6 ANION GAP 12 mmol/L 5-15 .CREAT EGFR(CKD-EPI) 64 >60 Jul 17, 2024 07:00 AM [facility] CBC & DIFF Specimen Type: BLOOD Comment: Manual Differential Performed Ordering Provider: SARAI GOLDEN Report Released Date/Time: Jul 16, 2024 04:52 PM Reporting Lab: [facility] [address] Performing Lab: [facility] [address] WBC 18.9 H 4.0-11.0 RBC 5.55 4.60-6.20 [...] PRESENT Jul 17, 2024 07:00 AM [facility] ALBUMIN Specimen Type: PLASMA No comment entered. Ordering Provider: SARAI GOLDEN Report Released Date/Time: Jul 16, 2024 12:12 PM Reporting Lab: [facility] [address] Performing Lab: [facility] [address] ALBUMIN 4.3 g/dL 3.5-5.0 Jul 17, 2024 07:00 AM [facility] COMPREHENSIVE METABOLIC PANEL+MG Specimen Type: PLASMA No comment entered. Ordering Provider: SARAI GOLDEN Report Released Date/Time: Jul 16, 2024 04:52 PM Reporting Lab: [facility] [address] Performing Lab: [facility] [address] CREATININE 1.3 mg/dL H 0.7-1.2 UREA NITROGEN [...] >60 Jul 16, 2024 07:10 PM [facility] LACTIC ACID Specimen Type: PLASMA No comment entered. Ordering Provider: SARAI GOLDEN Report Released Date/Time: Jul 16, 2024 12:12 PM Reporting Lab: [facility] [address] Performing Lab: [facility] [address] LACTIC ACID 0.9 mmol/L 0.5-2.2 Jul 16, 2024 02:14 PM [facility] MRSA SURVL NARES DNA Specimen Type: NARES No comment entered. Ordering Provider: SARAI GOLDEN Report Released Date/Time: Jul 16, 2024 12:12 PM Reporting Lab: [facility] [address] Performing Lab: [facility] [address] MRSA SURVL NARES DNA NEGATIVE Negative Jul 16, 2024 02:10 PM [facility] LACTIC ACID Specimen Type: PLASMA No comment entered. Ordering Provider: SARAI GOLDEN Report Released Date/Time: Jul 16, 2024 12:12 PM Reporting Lab: [facility] [address] Performing Lab: [facility] [address] LACTIC ACID 0.9 mmol/L 0.5-2.2 Jul 16, 2024 02:08 PM [facility] COMPREHENSIVE METABOLIC PANEL+MG Specimen Type: PLASMA No comment entered. Ordering Provider: SARAI GOLDEN Report Released Date/Time: Jul 16, 2024 12:12 PM Reporting Lab: [facility] [address] Performing Lab: [facility] [address] CREATININE 2.0 mg/dL H 0.7-1.2 UREA NITROGEN [...] >60 Jul 16, 2024 02:08 PM [facility] CBC & DIFF Specimen Type: BLOOD Comment: Manual Differential Performed Ordering Provider: SARAI GOLDEN Report Released Date/Time: Jul 16, 2024 12:12 PM Reporting Lab: [facility] [address] Performing Lab: [facility] [address] WBC 19.7 H 4.0-11.0 RBC 5.39 4.60-6.20 [...] PRESENT Jul 10, 2024 07:16 AM [facility] PHOSPHORUS Specimen Type: PLASMA No comment entered. Ordering Provider: JUANCARLOS ECHOLS Report Released Date/Time: Jul 09, 2024 12:23 PM Reporting Lab: [facility] [address] Performing Lab: [facility] [address] PHOSPHORUS 3.0 mg/dL 2.3-4.3 Jul 10, 2024 07:16 AM [facility] BASIC METABOLIC PANEL+MG Specimen Type: PLASMA No comment entered. Ordering Provider: JUANCARLOS ECHOLS S Report Released Date/Time: Jul 09, 2024 12:23 PM Reporting Lab: [facility] [address] Performing Lab: [facility] [address] CREATININE 0.7 mg/dL 0.7-1.2 UREA NITROGEN 27 [...] 09, 2024 12:23 PM Reporting Lab: [facility] [address] Performing Lab: [facility] [address] WBC 18.8 H 4.0-11.0 RBC 5.08 4.60-6.20 [...] 08, 2024 06:18 PM Reporting Lab: [facility] [address] Performing Lab: [facility] [address] WBC 15.3 H 4.0-11.0 RBC 4.91 4.60-6.20 [...] 08, 2024 08:41 AM Reporting Lab: [facility] [address] Performing Lab: [facility] [address] URINE COLOR YELLOW SPECIFIC GRAVITY >1.050 H [...] 07, 2024 04:49 PM Reporting Lab: [facility] [address] Performing Lab: [facility] [address] WBC 17.5 H 4.0-11.0 RBC 4.88 4.60-6.20 [...] 07, 2024 04:49 PM Reporting Lab: [facility] [address] Performing Lab: [facility] [address] PHOSPHORUS 2.6 mg/dL 2.3-4.3 Jul 08, 2024 09:54 AM [facility] BASIC METABOLIC PANEL+MG Specimen Type: PLASMA Comment: Specimen received in Lab at: [id number] Ordering Provider: JUANCARLOS ECHOLS Report Released Date/Time: Jul 07, 2024 04:49 PM Reporting Lab: [facility] [address] Performing Lab: [facility] [address] CREATININE 0.9 mg/dL 0.7-1.2 UREA NITROGEN 26 [...] 07, 2024 12:26 PM Reporting Lab: [facility] [address] Performing Lab: [facility] [address] C DIFF TOX B GENE PCR NEGATIVE Negative Jul 07, 2024 07:41 AM [facility] PHOSPHORUS Specimen Type: PLASMA No comment entered. Ordering Provider: JEVON ZAZUETA Report Released Date/Time: Jul 06, 2024 03:44 PM Reporting Lab: [facility] [address] Performing Lab: [facility] [address] PHOSPHORUS 3.1 mg/dL 2.3-4.3 Jul 07, 2024 07:41 AM [facility] BASIC METABOLIC PANEL+MG Specimen Type: PLASMA No comment entered. Ordering Provider: JEVON ZAZUETA Report Released Date/Time: Jul 06, 2024 03:44 PM Reporting Lab: [facility] [address] Performing Lab: [facility] [address] CREATININE 0.9 mg/dL 0.7-1.2 UREA NITROGEN 20 [...] 06, 2024 03:44 PM Reporting Lab: [facility] [address] Performing Lab: [facility] [address] WBC 21.2 H 4.0-11.0 RBC 5.09 4.60-6.20 [...] 05, 2024 01:22 PM Reporting Lab: [facility] [address] Performing Lab: [facility] [address] WBC 18.0 H 4.0-11.0 RBC 4.83 4.60-6.20 [...] 05, 2024 01:22 PM Reporting Lab: [facility] [address] Performing Lab: [facility] [address] PHOSPHORUS 3.6 mg/dL 2.3-4.3 Jul 06, 2024 07:21 AM [facility] BASIC METABOLIC PANEL+MG Specimen Type: PLASMA No comment entered. Ordering Provider: JEVON ZAZUETA Report Released Date/Time: Jul 05, 2024 01:22 PM Reporting Lab: [facility] [address] Performing Lab: [facility] [address] CREATININE 0.7 mg/dL 0.7-1.2 UREA NITROGEN 12 [...] 04, 2024 09:39 AM Reporting Lab: [facility] [address] Performing Lab: [facility] [address] MAGNESIUM 2.0 mg/dL 1.6-2.6 Jul 05, 2024 07:17 AM [facility] PHOSPHORUS Specimen Type: PLASMA No comment entered. Ordering Provider: JUANCARLOS ECHOLS S Report Released Date/Time: Jul 04, 2024 09:39 AM Reporting Lab: [facility] [address] Performing Lab: [facility] [address] PHOSPHORUS 2.0 mg/dL L 2.3-4.3 Jul 05, 2024 07:17 AM [facility] BASIC METABOLIC PANEL+MG Specimen Type: PLASMA No comment entered. Ordering Provider: JUANCARLOS ECHOLS S Report Released Date/Time: Jul 04, 2024 09:39 AM Reporting Lab: [facility] [address] Performing Lab: [facility] [address] CREATININE 0.7 mg/dL 0.7-1.2 UREA NITROGEN 12 [...] 04, 2024 09:39 AM Reporting Lab: [facility] [address] Performing Lab: [facility] [address] WBC 18.3 H 4.0-11.0 RBC 4.49 L [...] 03, 2024 06:31 PM Reporting Lab: [facility] [address] Performing Lab: [facility] [address] PHOSPHORUS 2.8 mg/dL 2.3-4.3 Jul 04, 2024 07:17 AM [facility] BASIC METABOLIC PANEL+MG Specimen Type: PLASMA No comment entered. Ordering Provider: GABINO CAMERON Report Released Date/Time: Jul 03, 2024 06:31 PM Reporting Lab: [facility] [address] Performing Lab: [facility] [address] CREATININE 0.7 mg/dL 0.7-1.2 UREA NITROGEN 16 [...] 03, 2024 06:31 PM Reporting Lab: [facility] [address] Performing Lab: [facility] [address] WBC 20.6 H 4.0-11.0 RBC 4.63 4.60-6.20 [...] 03, 2024 06:31 PM Reporting Lab: [facility] [address] Performing Lab: [facility] [address] WBC 20.6 H 4.0-11.0 RBC 4.63 4.60-6.20 [...] 03, 2024 06:31 PM Reporting Lab: [facility] [address] Performing Lab: [facility] [address] BNP 292 pg/mL H <99 Jul 03, 2024 10:32 PM [facility] FINGERSTICK GLUCOSE Specimen Type: BLOOD Comment: Save Result Nurse Notified Ordering Provider: KATELYNN PERSON Report Released Date/Time: Jul 03, 2024 10:50 PM Reporting Lab: [facility] [address] Performing Lab: [facility] [address] FINGERSTICK GLUCOSE 126 mg/dL H 70-100 Jul 03, 2024 05:33 PM [facility] FINGERSTICK GLUCOSE Specimen Type: BLOOD Comment: Save Result Nurse Notified Ordering Provider: KATELYNN PERSON Report Released Date/Time: Jul 03, 2024 05:46 PM Reporting Lab: [facility] [address] Performing Lab: [facility] [address] FINGERSTICK GLUCOSE 141 mg/dL H 70-100 Jul 03, 2024 02:31 PM [facility] POC ABG/ELECTROLYTES Specimen Type: ARTERIAL BLOOD Comment: FIO2 = 97% Patient Temp: 36.0 C Sample Type = ARTERIAL Ordering Provider: MAZIN ARREDONDO Report Released Date/Time: Jul 03, 2024 01:48 PM Reporting Lab: [facility] [address] Performing Lab: [facility] [address] POC PH 7.387 7.35-7.45 POC PCO2 34.4 [...] 03, 2024 01:48 PM Reporting Lab: [facility] [address] Performing Lab: [facility] [address] POC PH 7.280 L 7.35-7.45 POC PCO2 [...] 12, 2024 04:01 PM Reporting Lab: [facility] [address] Performing Lab: [facility] [address] URINE COLOR YELLOW SPECIFIC GRAVITY 1.031 1.003-1.03 [...] 12, 2024 03:59 PM Reporting Lab: [facility] [address] Performing Lab: [facility] [address] WBC 15.8 H 4.0-11.0 RBC 5.11 4.60-6.20 [...] 23, 2024 06:07 PM Reporting Lab: [facility] [address] Performing Lab: [facility] [address] CREATININE 0.8 mg/dL 0.7-1.2 UREA NITROGEN 13 [...] 23, 2024 06:07 PM Reporting Lab: [facility] [address] Performing Lab: [facility] [address] WBC 15.5 H 4.0-11.0 RBC 4.93 4.60-6.20 [...] 22, 2024 05:51 PM Reporting Lab: [facility] [address] Performing Lab: [facility] [address] CREATININE 0.7 mg/dL 0.7-1.2 UREA NITROGEN 16 [...] 22, 2024 05:51 PM Reporting Lab: [facility] [address] Performing Lab: [facility] [address] WBC 14.9 H 4.0-11.0 RBC 5.09 4.60-6.20 [...] 22, 2024 05:51 PM Reporting Lab: [facility] [address] Performing Lab: [facility] [address] CREATININE 0.7 mg/dL 0.7-1.2 UREA NITROGEN 17 [...] >60 Jun 22, 2024 06:10 PM [facility] CBC Specimen Type: BLOOD No comment entered. Ordering Provider: JEVON ZAZUETA Report Released Date/Time: Jun 22, 2024 05:51 PM Reporting Lab: [facility] [address] Performing Lab: [facility] [address] WBC 16.9 H 4.0-11.0 RBC 5.28 4.60-6.20 HGB 16.9 g/dL 13.5-17.9 HCT 50.4 41.0-54.0 MCV 95.5 fL 80.0-100.0 MCH 32.0 pg 27.0-33.0 MCHC 33.5 g/dL 32.0-37.5 PLT 223 150-400 MPV 10.9 fL 9.1-13.0 RDW 14.0 11.5-14.5 Jun 21, 2024 06:48 PM [facility] URINALYSIS Specimen Type: URINE No comment entered. Ordering Provider: DELIA MARTINEZ Report Released Date/Time: Jun 21, 2024 05:45 PM Reporting Lab: [facility] [address] Performing Lab: [facility] [address] URINE COLOR YELLOW SPECIFIC GRAVITY 1.041 H [...] 21, 2024 06:07 PM Reporting Lab: [facility] [address] Performing Lab: [facility] [address] POC CREATININE 1.1 mg/dL 0.6-1.3 Jun 21, 2024 05:30 PM [facility] POC ABG/LACTATE Specimen Type: VENOUS BLOOD No comment entered. Ordering Provider: DELIA MARTINEZ Report Released Date/Time: Jun 21, 2024 06:07 PM Reporting Lab: [facility] [address] Performing Lab: [facility] [address] POC PH 7.470 H 7.31-7.41 POC PCO2 [...] 21, 2024 05:30 PM Reporting Lab: [facility] [address] Performing Lab: [facility] [address] .INR 1.2 H 0.8-1.1 .PT 13.9 s H 9.4-12.5 Jun 21, 2024 05:24 PM [facility] LIPASE Specimen Type: PLASMA No comment entered. Ordering Provider: DELIA MARTINEZ Report Released Date/Time: Jun 21, 2024 05:30 PM Reporting Lab: [facility] [address] Performing Lab: [facility] [address] LIPASE 32 U/L <60 Jun 21, 2024 05:24 PM [facility] EXTRA GOLD GEL TUBE Specimen Type: SERUM No comment entered. Ordering Provider: DELIA MARTINEZ Report Released Date/Time: Jun 21, 2024 05:41 PM Reporting Lab: [facility] [address] Performing Lab: [facility] [address] EXTRA GOLD GEL TUBE RECEIVED Jun 21, 2024 05:24 PM [facility] COMPREHENSIVE METABOLIC PANEL+MG Specimen Type: PLASMA No comment entered. Ordering Provider: DELIA MARTINEZ Report Released Date/Time: Jun 21, 2024 05:30 PM Reporting Lab: [facility] [address] Performing Lab: [facility] [address] CREATININE 0.9 mg/dL 0.7-1.2 UREA NITROGEN 29 [...] 21, 2024 05:30 PM Reporting Lab: [facility] [address] Performing Lab: [facility] [address] WBC 21.3 H 4.0-11.0 RBC 5.48 4.60-6.20 [...] Index Source Jul 18, 2024 11:21 PM [place] [facility] Social History: Smoking Status (Most [...] PM CHEST 1 VIEW: [employer] YAMIL [id number] M Exm Date: JUL 18, 2024@18:15 Req Phys: LEISA GOLDEN Loc: 07-18-2024@19:00 Img Loc: MAIN X-RAY Service: [place] [address] (Case [id number] COMPLETE) CHEST 1 VIEW (RAD Detailed) CPT:12089 Proc Modifiers : PORTABLE EXAM Reason for Study: SOB Clinical History: [place] IS NOT under investigation for COVID-19 or is COVID-19 negative 73 yo with SOB Responsible provider name and phone number to notify for critical findings if other than user placing the order and pager listed below: User placing orders pager: [phone] LAST CREATININE 1.2 (07/17/24) Report Status: Verified Date Reported: JUL 18, 2024 Date Verified: JUL 18, 2024 [employer] E-Sig:/ES/CARLOS A CUNNINGHAM DO Report: EXAMINATION: CHEST 1 VIEW Reason for Study: SOB [place] IS NOT under investigation for COVID-19 or is COVID-19 negative 73 yo with SOB Responsible provider name and phone number to notify for critical findings if other than user placing the order and pager listed below: User placing orders pager: [phone] LAST CREATININE 1.2 (07/17/24) SOB TECHNIQUE: Single [...] Interpreting Staff: CARLOS A CUNNINGHAM DO, RADIOLOGIST (Technical [employer]) /KMCARLOS A DONALD [facility] Jul 16, 2024 07:49 AM [facility] CT ABDOMEN/PELVIS: FLACA WEAVER [id number] -1950 M Exm Date: JUL 16, 2024@07:49 Req Phys: JATINDER CABRERA Loc: 07-17-2024@09:02 Img Loc: OUTSOURCE CT Service: Unknown (Case [id number] COMPLETE) [facility] CT ABDOMEN/PELVIS (CT Detailed) CPT:90994 Reason for Study: outside study Clinical History: [...] *ELECTRONICALLY FILED* [facility] Jul 13, 2024 09:[address] ABDOMEN/PELVIS: FLACA WEAVER [id number] -1950 M Exm Date: JUL 13, 2024@09:41 Req Phys: JATINDER CABRERA Loc: 07-17-2024@09:08 Img Loc: OUTSOURCE CT Service: Unknown (Case [id number] COMPLETE) NON NE CT ABDOMEN/PELVIS (CT Detailed) CPT:01854 Reason for Study: outside study Clinical History: [...] *ELECTRONICALLY FILED* [facility] Jul 08, 2024 10:09 AM CHEST 2 VIEWS PA AND LAT: FLACA WEAVER [id number] -1950 M Exm Date: JUL 08, 2024@10:09 Req Phys: KATELYNN PERSON [facility] Loc: [facility]/07-08-2024@11:49 Img Loc: MAIN X-RAY Service: [facility] [place] [address] (Case 24 COMPLETE) CHEST 2 VIEWS PA AND LAT (RAD Detailed) CPT:06227 Reason for Study: Uptrending WBC, POD 5 Clinical History: Ol[place] IS NOT under investigation for COVID-19 or is COVID-19 negative POD 5, work up for uptrending wbc Responsible provider name and phone number to notify for critical findings if other than user placing the order and pager listed below: User placing orders pager: Katelynn Person LAST CREATININE 0.9 (07/07/24) Report Status: Verified Date Reported: JUL 08, 2024 Date Verified: JUL 08, 2024 [employer] E-Sig: Report: CHEST 2 VIEWS PA AND [...] cardiopulmonary disease. READING PHYSICIAN: Sarbjit Vaughn M.D. -[phone] 07/08/2024 12:[address] [facility] National Teleradiology Program [phone] (For Medical Practitioner Use Only) Attention Patients / Veterans: If you have questions or concerns about these test results, please contact your ordering provider or primary care team. Primary Interpreting Staff: RADIOLOGY,OUTSIDE SERVICE, Staff Physician / RADIOLOGY,OUTSIDE SERVICE [facility] Jul 08, 2024 10:[address] (AP) ABDOMEN/PELVIS W CONTRAST: FLACA WEAVER [id number] -1950 M Exm Date: JUL 08, 2024@10:00 Req Phys: KATELYNN PERSON [facility] Loc: [facility]/07-08-2024@12:07 Img Loc: CT IMAGING Service: [place] [address] (Case 22 COMPLETE) CT (AP) ABDOMEN/PELVIS W CONTRAST(CT Detailed) CPT:94966 Contrast Media : Non-ionic Iodinated Reason for [...] PLASMA .CREAT EGFR(CKD-E >90 Ref: >=60 Allergies: ([facility] only) TERAZOSIN (Mar 13, 2015) Report Status: Verified Date Reported: JUL 08, 2024 Date Verified: JUL 08, 2024 [employer] E-Sig: Report: CT (AP) ABDOMEN/PELVIS W CONTRAST [...] as noted above READING PHYSICIAN: Celestino Blanc -[phone] 07/08/2024 13:04 EST [facility] National Teleradiology Program [phone] (For Medical Practitioner Use Only) Attention Patients / Veterans: If you have questions or concerns about these test results, please contact your ordering provider or primary care team. Primary Interpreting Staff: RADIOLOGY,OUTSIDE SERVICE, Staff Physician / RADIOLOGY,OUTSIDE SERVICE [facility] Jun 22, 2024 11:49 AM ABSCESS DRAIN PLACEMENT PERITONEAL (P): FLACA WEAVER [id number] -1950 M Exm Date: JUN 22, 2024@11:49 Req Phys: ADINAANGELA Maeve Patel Loc: [facility]/06-22-2024@17:14 Img Loc: INTERVENTIONAL RADIOLOGY Service: [place] [address] (Case [id number] COMPLETE) IR PERITONEAL/RETROPERITONEAL PER(ANI Detailed) CPT:73747 Reason for Study: diverticulitis with abscess (Case 3570 COMPLETE) IR MOD SEDATION 10-22 MIN (ANI Detailed) CPT:38034 Clinical History: [place] IS NOT under investigation for COVID-19 or is COVID-19 negative 73 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 please place abscess drain. Contact number for responsible provider who can be reached for any questions or notifications of critical findings: [phone] n/a LAST CREATININE 0.9 (06/21/24) Report Status: Verified Date Reported: JUN 22, 2024 Date Verified: JUN 22, 2024 [employer] E-Sig:/ES/LISA PENDLETON MD Report: PROCEDURES: Placement of [...] obtained. A pre-procedural Time-Out was performed per [facility] policy. The patient was placed in the supine position on the CT table. Preprocedural scan performed. The suprapubic region/lower abdominal wall was sterilely prepped and draped in the usual fashion.1% lidocaine without epinephrine was used for local anesthesia. Using real-time CT fluoroscopy, a 5 Ghanaian Padinmotionesis catheter was advanced into the collection in the left pelvis. A wire was coiled in the collection. The tract into the collection was dilated to accommodate the 12 Ghanaian locking pigtail drainage catheter. There was return [...] Primary Interpreting Staff: LISA PENDLETON MD, RADIOLOGIST (Technical Manager [employer]) /JRT LISA PENDLETON [facility] Jun 22, 2024 11:[address] NEEDLE PLACEMENT (P): FLACA WEAVER [id number] -1950 M Exm Date: JUN 22, 2024@11:48 Req Phys: ANGELA HOLDEN [facility] Loc: [facility]/06-22-2024@17:14 Img Loc: CT IMAGING Service: [place] [address] (Case 3568 COMPLETE) CT SCAN FOR NEEDLE PLACEMENT (CT Detailed) CPT:11887 Reason for Study: l pelvic abscess drain Clinical History: Report Status: Verified Date Reported: JUN 22, 2024 Date Verified: JUN 22, 2024 [employer] E-Sig:/ES/LISA PENDLETON MD Report: PROCEDURES: Placement of [...] obtained. A pre-procedural Time-Out was performed per [facility] policy. The patient was placed in the supine position on the CT table. Preprocedural scan performed. The suprapubic region/lower abdominal wall was sterilely prepped and draped in the usual fashion.1% lidocaine without epinephrine was used for local anesthesia. Using real-time CT fluoroscopy, a 5 Ghanaian Padinmotionesis catheter was advanced into the collection in the left pelvis. A wire was coiled in the collection. The tract into the collection was dilated to accommodate the 12 Ghanaian locking pigtail drainage catheter. There was return [...] Primary Interpreting Staff: LISA PENDLETON MD, RADIOLOGIST (Technical Manager [employer]) /JRT LISA PENDLETON [facility] Jun 21, 2024 06:[address] (AP) ABDOMEN/PELVIS (P): FLACA WEAVER [id number] -1950 M Exm Date: JUN 21, 2024@18:09 Req Phys: DELIA MARTINEZ Loc: [facility] EMERGENCY [facility]PT WALK-IN (Re Img Loc: CT IMAGING Service: [place] [address] (Case 3203 COMPLETE) CT (AP) ABDOMEN/PELVIS W CONTRAST(CT Detailed) CPT:57924 Contrast Media : Non-ionic Iodinated Reason for [...] PLASMA .CREAT EGFR(CKD-E >90 Ref: >=60 Allergies: ([facility] only) TERAZOSIN (Mar 13, 2015) Defer to [...] 21, 2024 Date Verified: JUN 21, 2024 Technical Manager [employer] E-Sig:/ES/CARLOS A CUNNINGHAM DO Report: EXAMINATION: CT [...] Interpreting Staff: CARLOS A CUNNINGHAM DO, RADIOLOGIST (Technical Manager [employer]) /CARLOS A ROWELL [facility] [...] Lab: [facility] [CLIA# [id number]] [place] [address] Accession [UID]: [id number] [[id number]] Received: Jul 16, 2024@14:41 Collection sample: BLOOD Collection date: Jul 16, 2024 14:07 Provider: LEISA GOLDEN Comment on specimen: R AC, RECEIVED 2 BLOOD CULTURE BOTTLES Test(s) ordered: CULTURE & SUSCEPTIBILITY...... completed: Jul 22, 2024 * BACTERIOLOGY FINAL REPORT => Jul 22, 2024 13:39 TECH CODE: [id number] CULTURE RESULTS: NO GROWTH 5 DAYS Bacteriology Remark(s): THIS REPORT IS FINAL =--=--=--=--=--=--=--=--=--= --=--=--=--=--=--=--=--=--=- -=--=--=--=--=--=--=-- Performing Laboratory: Bacteriology Report Performed By: [facility] [CLIA# [id number]] [place] [address] [facility] Jul 16, 2024 01:54 PM LR MICROBIOLOGY RE PORT: Reporting Lab: [facility] [CLIA# [id number]] [place] [address] Accession [UID]: [id number] [[id number]] Received: Jul 16, 2024@14:41 Collection sample: BLOOD Collection date: Jul 16, 2024 13:54 Provider: LEISA GOLDEN Comment on specimen: L AC, RECEIVED 2 BLOOD CULTURE BOTTLES Test(s) ordered: CULTURE & SUSCEPTIBILITY...... completed: Jul 22, 2024 * BACTERIOLOGY FINAL REPORT => Jul 22, 2024 13:39 TECH CODE: [id number] CULTURE RESULTS: NO GROWTH 5 DAYS Bacteriology Remark(s): THIS REPORT IS FINAL =--=--=--=--=--=--=--=--=--= --=--=--=--=--=--=--=--=--=- -=--=--=--=--=--=--=-- Performing Laboratory: Bacteriology Report Performed By: [facility] [CLIA# [id number]] [place] [address] [facility] Jul 03, 2024 05:59 AM LR SURGICAL PATHOL OGY REPORT: LOCAL TITLE: LR SURGICAL PATHOLOGY REPORT STANDARD TITLE: PATHOLOGY REPORT DATE OF NOTE: JUL 06, 2024@10:40:48 ENTRY DATE: JUL 06, 2024@10:40:48 AUTHOR: EDUARDO PALOMARES EXP COSIGNER: URGENCY: STATUS: COMPLETED $APHDR Reporting Lab: [facility] [CLIA# [id number]] [place] [address] - - - - - - - [...] - PATHOLOGY REPORT Accession No. [id number] - - - - - - - [...] - PATHOLOGY REPORT Accession No. [id number] - - - - - - - [...] Second circumferential surgical margin, en face; E-F: Spindle Repairer diverticula; G: Spindle Repairer section of mesentery; H: Random community service [...] colonic tissue ring, bisected transversely. [facility]. [facility]: Microscopic examination performed. DIAGNOSIS: 1. Colon, sigmoid, sigmoidectomy-- - Diverticulosis with perforation and focal abscess formation 2. Colon, anastomotic rings, excision-- - Viable colonic mucosa without diagnostic abnormality /es/ EDUARDO PALOMARES MD STAFF PATHOLOGIST Signed Jul 06, 2024@10:40 Performing Laboratory: Surgical Pathology Report Performed By: [facility] [CLIA# [id number]] [place] [address] $FTR - - - - - - [...] - - FLACA WEAVER STANDARD FORM 515 ID:[id number] SEX:M :1950 AGE: 73 LOC:21130 ADM:Jun DX:DIVERTICULITIS PCP: Jatinder Cabrera /alexi/ EDUARDO PALOMARES MD STAFF PATHOLOGIST Signed: 07/06/2024 10:40 EDUARDO PALOMARES [facility] Jun 22, 2024 01:15 PM LR MICROBIOLOGY RE PORT: Reporting Lab: [facility] [CLIA# [id number]] [place] [address] Accession [UID]: [id number] [[id number]] Received: Jun 22, 2024@13:38 Collection sample: FLUID Collection date: Jun 22, 2024 13:15 Provider: ANGELA HOLDEN Comment on specimen: LLQ ABSCESS, RECEIVED IN ANAEROBIC TRANSPORT VIAL Test(s) ordered: GRAM STAIN.................... completed: Jun 22, 2024 15:03 CULTURE & SUSCEPTIBILITY...... completed: Jun 25, 2024 * BACTERIOLOGY FINAL REPORT => Jun 25, 2024 10:56 TECH CODE: [id number] GRAM STAIN: DIRECT SMEAR of specimen before [...] By: [facility] [CLIA# [id number]] [place] [address] [facility] Jun 22, 2024 01:15 PM LR MICROBIOLOGY RE PORT: Reporting Lab: [facility] [CLIA# [id number]] [place] [address] Accession [UID]: [id number] [[id number]] Received: Jun 22, 2024@13:38 Collection sample: FLUID Collection date: Jun 22, 2024 13:15 Provider: ANGELA HOLDEN Comment on specimen: LLQ ABSCESS, RECEIVED IN ANAEROBIC TRANSPORT VIAL Test(s) ordered: ANAEROBIC CULTURE............. completed: Jun 28, 2024 * BACTERIOLOGY FINAL REPORT => Jun 28, 2024 10:08 TECH CODE: [id number] CULTURE RESULTS: HEAVY GROWTH MIXED ANAEROBES Comment: [...] By: [facility] [CLIA# [id number]] [place] [address] [facility] Jun 21, 2024 06:12 PM LR MICROBIOLOGY RE PORT: Reporting Lab: [facility] [IA# [id number]] [place] [address] Accession [UID]: [id number] [[id number]] Received: Jun 21, 2024@18:12 Collection sample: BLOOD [...] By: [facility] [CLIA# [id number]] [place] [address] [facility] Jun 21, 2024 06:11 PM LR MICROBIOLOGY RE PORT: Reporting Lab: [facility] [CLIA# [id number]] [place] [address] Accession [UID]: [id number] [[id number]] Received: Jun 21, 2024@18:11 Collection sample: BLOOD [...] By: [facility] [CLIA# [id number]] [place] [address] [facility] Encounter Notes: All associated encounter notes This section contains the clinical notes associated to the Encounter. Date/Time Encounter Note(s) Provider Source Jul 18, 2024 01:00 AM CRITICAL CARE UNIT NOTE: LOCAL TITLE: ICC[facility] INPATIENT FLOWSHEET STANDARD TITLE: CRITICAL CARE UNIT NOTE DATE OF NOTE: JUL 18, 2024@01:00 ENTRY DATE: JUL 19, 2024@14:36:48 AUTHOR: SYSTEM,[employer] EXP COSIGNER: URGENCY: STATUS: COMPLETED This is a place aranda only. Please see [employer] to view document. /es/ [employer] SYSTEM ICU DOCUMENT IMPORT Signed: 07/19/2024 14:36 SYSTEM,[employer] [facility] Jul 18, 2024 01:00 AM CRITICAL CARE UNIT NOTE: LOCAL TITLE: [facility] RESPIRATORY THERAPY FLOWSHEET STANDARD TITLE: CRITICAL CARE UNIT NOTE DATE OF NOTE: JUL 18, 2024@01:00 ENTRY DATE: JUL 19, 2024@15:05:34 AUTHOR: SYSTEM,[employer] EXP COSIGNER: URGENCY: STATUS: COMPLETED This is a place aranda only. Please see [employer] to view document. /es/ [employer] SYSTEM ICU DOCUMENT IMPORT Signed: 07/19/2024 15:05 SYSTEM,[employer] [facility]
--- OUTSIDE RECORDS SUMMARY | 2024-08-01 08:02 | XMS_ITS ---
[place] DAILY HOSPITALIZATION DATA [facility] Encounter Summary Created on: August 01, 2024 MGE FLACADARCI LOBO : 1950 Sex: Male Author Name [facility] Address [address] [place] [address] Care Team Providers Care Business Proposal Rep Name Role Phone JATINDER CABRERA Primary Care [...] PART A Sep 29, 2016 PART A [id number] [phone] JUDY WEAVER PATIENT Selected Encounter This section includes the information on record at [place] for the Encounter. Date/Time Encounter Type Encounter Description Reason Pro vider Source Jul 19, 2024 04:06 PM Inpatient Visit DAILY HOSPITALIZATION DATA IHE [...] Chemi stry Order URINALYSIS URINE WC ONCE [facility] Jun 12, 2024 12:00 AM Laboratory - Chemi stry Order BNP PLASMA SP ONCE [facility] Jun 21, 2024 05:45 PM Laboratory - Blood Bank Order TYPE & SCREEN - LAB BLOOD WC [facility] Jul 03, 2024 12:00 AM Laboratory - Blood Bank Order TYPE & SCREEN - LAB BLOOD WC [facility] Jul 16, 2024 12:00 AM Laboratory - Chemi stry Order CBC BLOOD SP ONCE [facility] Jul 17, 2024 12:00 AM Laboratory - Chemi stry Order BASIC METABOLIC PANEL+MG PLASMA SP ONCE [facility] Lab Results: +/- 30 days of [...] Range Comment Jul 21, 2024 10:38 AM [facility] BASIC METABOLIC PANEL+MG Specimen Type: PLASMA No comment entered. Ordering Provider: SARAI GLODEN Report Released Date/Time: Jul 20, 2024 06:50 PM Reporting Lab: [facility] [address] Performing Lab: [facility] [address] CREATININE 0.8 mg/dL 0.7-1.2 UREA NITROGEN 31 mg/dL H 8-26 GLUCOSE 120 mg/dL H 70-100 SODIUM 125 mmol/L L 136-145 POTASSIUM 4.4 mmol/L 3.5-5.1 CHLORIDE 100 mmol/L 98-107 CO2 17 mmol/L L 22-29 CALCIUM 9.6 mg/dL 8.4-10.2 MAGNESIUM 1.9 mg/dL 1.6-2.6 ANION GAP 8 mmol/L 5-15 .CREAT EGFR(CKD-EPI) >90 >60 Jul 21, 2024 10:38 AM [facility] CBC Specimen Type: BLOOD No comment entered. Ordering Provider: SARAI GOLDEN Report Released Date/Time: Jul 20, 2024 06:50 PM Reporting Lab: [facility] [address] Performing Lab: [facility] [address] WBC 16.0 H 4.0-11.0 RBC 5.16 4.60-6.20 HGB 15.8 g/dL 13.5-17.9 HCT 45.5 41.0-54.0 MCV 88.2 fL 80.0-100.0 MCH 30.6 pg 27.0-33.0 MCHC 34.7 g/dL 32.0-37.5 PLT 428 H 150-400 MPV 10.8 fL 9.1-13.0 RDW 13.6 11.5-14.5 Jul 20, 2024 01:00 PM [facility] SODIUM,URINE RANDOM Specimen Type: URINE No comment entered. Ordering Provider: SARAI GOLDEN Report Released Date/Time: Jul 20, 2024 08:22 AM Reporting Lab: [facility] [phone] Performing Lab: [facility] [address] SODIUM,URINE RANDOM <20 mmol/L Jul 20, 2024 01:00 PM [facility] OSMOLALITY,URINE Specimen Type: URINE No comment entered. Ordering Provider: SARAI GOLDEN Report Released Date/Time: Jul 20, 2024 08:22 AM Reporting Lab: [facility] [address] Performing Lab: [facility] [address] OSMOLALITY,URIN E 648 mosm/kg 500-800 Jul 20, 2024 06:45 AM [facility] BASIC METABOLIC PANEL+MG Specimen Type: PLASMA No comment entered. Ordering Provider: SARAI GOLDEN Report Released Date/Time: Jul 19, 2024 06:13 PM Reporting Lab: [facility] [address] Performing Lab: [facility] [address] CREATININE 0.8 mg/dL 0.7-1.2 UREA NITROGEN 36 mg/dL H 8-26 GLUCOSE 111 mg/dL H 70-100 SODIUM 121 mmol/L L 136-145 POTASSIUM 4.1 mmol/L 3.5-5.1 CHLORIDE 99 mmol/L 98-107 CO2 14 mmol/L L 22-29 CALCIUM 9.5 mg/dL 8.4-10.2 MAGNESIUM 1.8 mg/dL 1.6-2.6 ANION GAP 8 mmol/L 5-15 .CREAT EGFR(CKD-EPI) >90 >60 Jul 20, 2024 06:43 AM [facility] CBC & DIFF Specimen Type: BLOOD Comment: Automated Differential Performed Ordering Provider: SARAI GOLDEN Report Released Date/Time: Jul 19, 2024 06:13 PM Reporting Lab: [facility] [address] Performing Lab: [facility] [address] WBC 16.6 H 4.0-11.0 RBC 4.96 4.60-6.20 [...] H 0.0-0.1 Jul 20, 2024 05:30 AM [facility] OSMOLALITY,SERUM Specimen Type: SERUM No comment entered. Ordering Provider: SARAI GOLDEN Report Released Date/Time: Jul 20, 2024 09:47 AM Reporting Lab: [facility] [address] Performing Lab: [facility] [address] OSMOLALITY,SERU M 266 mosm/kg L 276-305 Jul 19, 2024 08:57 AM [facility] BASIC METABOLIC PANEL+MG Specimen Type: PLASMA No comment entered. Ordering Provider: SARAI GOLDEN Report Released Date/Time: Jul 18, 2024 10:24 PM Reporting Lab: [facility] [address] Performing Lab: [facility] [address] CREATININE 1.0 mg/dL 0.7-1.2 UREA NITROGEN 40 mg/dL H 8-26 GLUCOSE 104 mg/dL H 70-100 SODIUM 129 mmol/L L 136-145 POTASSIUM 3.3 mmol/L L 3.5-5.1 CHLORIDE 104 mmol/L 98-107 CO2 16 mmol/L L 22-29 CALCIUM 8.0 mg/dL L 8.4-10.2 MAGNESIUM 1.7 mg/dL 1.6-2.6 ANION GAP 9 mmol/L 5-15 .CREAT EGFR(CKD-EPI) 80 >60 Jul 19, 2024 08:57 AM [facility] CBC Specimen Type: BLOOD No comment entered. Ordering Provider: SARAI GOLDEN Report Released Date/Time: Jul 18, 2024 10:24 PM Reporting Lab: [facility] [address] Performing Lab: [facility] [address] WBC 17.3 H 4.0-11.0 RBC 4.83 4.60-6.20 HGB 14.8 g/dL 13.5-17.9 HCT 42.6 41.0-54.0 MCV 88.2 fL 80.0-100.0 MCH 30.6 pg 27.0-33.0 MCHC 34.7 g/dL 32.0-37.5 PLT 456 H 150-400 MPV 10.8 fL 9.1-13.0 RDW 13.7 11.5-14.5 Jul 17, 2024 06:55 PM [facility] PHOSPHORUS Specimen Type: PLASMA No comment entered. Ordering Provider: SARAI GOLDEN Report Released Date/Time: Jul 17, 2024 01:54 PM Reporting Lab: [facility] [address] Performing Lab: [facility] [address] PHOSPHORUS 2.9 mg/dL 2.3-4.3 Jul 17, 2024 06:55 PM [facility] BASIC METABOLIC PANEL+MG Specimen Type: PLASMA No comment entered. Ordering Provider: SARAI GOLDEN Report Released Date/Time: Jul 17, 2024 01:54 PM Reporting Lab: [facility] [address] Performing Lab: [facility] [address] CREATININE 1.2 mg/dL 0.7-1.2 UREA NITROGEN 62 mg/dL H 8-26 GLUCOSE 116 mg/dL H 70-100 SODIUM 128 mmol/L L 136-145 POTASSIUM 3.8 mmol/L 3.5-5.1 CHLORIDE 100 mmol/L 98-107 CO2 16 mmol/L L 22-29 CALCIUM 9.3 mg/dL 8.4-10.2 MAGNESIUM 2.1 mg/dL 1.6-2.6 ANION GAP 12 mmol/L 5-15 .CREAT EGFR(CKD-EPI) 64 >60 Jul 17, 2024 07:00 AM [facility] CBC & DIFF Specimen Type: BLOOD Comment: Manual Differential Performed Ordering Provider: SARAI GOLDEN Report Released Date/Time: Jul 16, 2024 04:52 PM Reporting Lab: [facility] [address] Performing Lab: [facility] [address] WBC 18.9 H 4.0-11.0 RBC 5.55 4.60-6.20 [...] MORPHOLOGY PRESENT Jul 17, 2024 07:00 AM [facility] ALBUMIN Specimen Type: PLASMA No comment entered. Ordering Provider: SARAI GOLDEN Report Released Date/Time: Jul 16, 2024 12:12 PM Reporting Lab: [facility] [address] Performing Lab: [facility] [address] ALBUMIN 4.3 g/dL 3.5-5.0 Jul 17, 2024 07:00 AM [facility] COMPREHENSIVE METABOLIC PANEL+MG Specimen Type: PLASMA No comment entered. Ordering Provider: SARAI GOLDEN Report Released Date/Time: Jul 16, 2024 04:52 PM Reporting Lab: [facility] [address] Performing Lab: [facility] [address] CREATININE 1.3 mg/dL H 0.7-1.2 UREA NITROGEN [...] L >60 Jul 16, 2024 07:10 PM [facility] LACTIC ACID Specimen Type: PLASMA No comment entered. Ordering Provider: SARAI GOLDEN Report Released Date/Time: Jul 16, 2024 12:12 PM Reporting Lab: [facility] [address] Performing Lab: [facility] [address] LACTIC ACID 0.9 mmol/L 0.5-2.2 Jul 16, 2024 02:14 PM [facility] MRSA SURVL NARES DNA Specimen Type: NARES No comment entered. Ordering Provider: SARAI GOLDEN Report Released Date/Time: Jul 16, 2024 12:12 PM Reporting Lab: [facility] [address] Performing Lab: [facility] [address] MRSA SURVL NARES DNA NEGATIVE Negative Jul 16, 2024 02:10 PM [facility] LACTIC ACID Specimen Type: PLASMA No comment entered. Ordering Provider: SARAI GOLDEN Report Released Date/Time: Jul 16, 2024 12:12 PM Reporting Lab: [facility] [address] Performing Lab: [facility] [address] LACTIC ACID 0.9 mmol/L 0.5-2.2 Jul 16, 2024 02:08 PM [facility] COMPREHENSIVE METABOLIC PANEL+MG Specimen Type: PLASMA No comment entered. Ordering Provider: SARAI GOLDEN Report Released Date/Time: Jul 16, 2024 12:12 PM Reporting Lab: [facility] [address] Performing Lab: [facility] [address] CREATININE 2.0 mg/dL H 0.7-1.2 UREA NITROGEN [...] L >60 Jul 16, 2024 02:08 PM [facility] CBC & DIFF Specimen Type: BLOOD Comment: Manual Differential Performed Ordering Provider: SARAI GOLDEN Report Released Date/Time: Jul 16, 2024 12:12 PM Reporting Lab: [facility] [address] Performing Lab: [facility] [address] WBC 19.7 H 4.0-11.0 RBC 5.39 4.60-6.20 [...] MORPHOLOGY PRESENT Jul 10, 2024 07:16 AM [facility] PHOSPHORUS Specimen Type: PLASMA No comment entered. Ordering Provider: JUANCARLOS ECHOLS Report Released Date/Time: Jul 09, 2024 12:23 PM Reporting Lab: [facility] [address] Performing Lab: [facility] [address] PHOSPHORUS 3.0 mg/dL 2.3-4.3 Jul 10, 2024 07:16 AM [facility] BASIC METABOLIC PANEL+MG Specimen Type: PLASMA No comment entered. Ordering Provider: JUANCARLOS ECHOLS S Report Released Date/Time: Jul 09, 2024 12:23 PM Reporting Lab: [facility] [address] Performing Lab: [facility] [address] CREATININE 0.7 mg/dL 0.7-1.2 UREA NITROGEN 27 mg/dL H 8-26 GLUCOSE 104 mg/dL H 70-100 SODIUM 133 mmol/L L 136-145 POTASSIUM 4.3 mmol/L 3.5-5.1 CHLORIDE 102 mmol/L 98-107 CO2 19 mmol/L L 22-29 CALCIUM 10.1 mg/dL 8.4-10.2 MAGNESIUM 1.9 mg/dL 1.6-2.6 ANION GAP 12 mmol/L 5-15 .CREAT EGFR(CKD-EPI) >90 >60 Jul 10, 2024 07:15 AM [facility] CBC Specimen Type: BLOOD No comment entered. Ordering Provider: JUANCARLOS ECHOLS Report Released Date/Time: Jul 09, 2024 12:23 PM Reporting Lab: [facility] [address] Performing Lab: [facility] [address] WBC 18.8 H 4.0-11.0 RBC 5.08 4.60-6.20 HGB 15.9 g/dL 13.5-17.9 HCT 46.8 41.0-54.0 MCV 92.1 fL 80.0-100.0 MCH 31.3 pg 27.0-33.0 MCHC 34.0 g/dL 32.0-37.5 PLT 479 H 150-400 MPV 10.2 fL 9.1-13.0 RDW 13.7 11.5-14.5 Jul 09, 2024 07:08 AM [facility] CBC Specimen Type: BLOOD No comment entered. Ordering Provider: QUYNH WEISS Report Released Date/Time: Jul 08, 2024 06:18 PM Reporting Lab: [facility] [address] Performing Lab: [facility] [address] WBC 15.3 H 4.0-11.0 RBC 4.91 4.60-6.20 HGB 15.1 g/dL 13.5-17.9 HCT 45.7 41.0-54.0 MCV 93.1 fL 80.0-100.0 MCH 30.8 pg 27.0-33.0 MCHC 33.0 g/dL 32.0-37.5 PLT 443 H 150-400 MPV 10.0 fL 9.1-13.0 RDW 13.5 11.5-14.5 Jul 08, 2024 10:50 AM [facility] URINALYSIS Specimen Type: URINE No comment entered. Ordering Provider: KATELYNN PERSON Report Released Date/Time: Jul 08, 2024 08:41 AM Reporting Lab: [facility] [address] Performing Lab: [facility] [address] URINE COLOR YELLOW SPECIFIC GRAVITY >1.050 H [...] NEGATIVE NEGATIVE Jul 08, 2024 09:54 AM [facility] CBC Specimen Type: BLOOD Comment: Specimen received in Lab at: [id number] Ordering Provider: JUANCARLOS ECHOLS Report Released Date/Time: Jul 07, 2024 04:49 PM Reporting Lab: [facility] [address] Performing Lab: [facility] [address] WBC 17.5 H 4.0-11.0 RBC 4.88 4.60-6.20 HGB 14.9 g/dL 13.5-17.9 HCT 45.7 41.0-54.0 MCV 93.6 fL 80.0-100.0 MCH 30.5 pg 27.0-33.0 MCHC 32.6 g/dL 32.0-37.5 PLT 472 H 150-400 MPV 10.2 fL 9.1-13.0 RDW 13.7 11.5-14.5 Jul 08, 2024 09:54 AM [facility] PHOSPHORUS Specimen Type: PLASMA Comment: Specimen received in Lab at: [id number] Ordering Provider: JUANCARLOS ECHOLS Report Released Date/Time: Jul 07, 2024 04:49 PM Reporting Lab: [facility] [address] Performing Lab: [facility] [address] PHOSPHORUS 2.6 mg/dL 2.3-4.3 Jul 08, 2024 09:54 AM [facility] BASIC METABOLIC PANEL+MG Specimen Type: PLASMA Comment: Specimen received in Lab at: 0952 Ordering Provider: JUANCARLOS ECHOLS Report Released Date/Time: Jul 07, 2024 04:49 PM Reporting Lab: [facility] [address] Performing Lab: [facility] [address] CREATININE 0.9 mg/dL 0.7-1.2 UREA NITROGEN 26 mg/dL 8-26 GLUCOSE 128 mg/dL H 70-100 SODIUM 134 mmol/L L 136-145 POTASSIUM 3.4 mmol/L L 3.5-5.1 CHLORIDE 100 mmol/L 98-107 CO2 24 mmol/L 22-29 CALCIUM 9.8 mg/dL 8.4-10.2 MAGNESIUM 1.8 mg/dL 1.6-2.6 ANION GAP 10 mmol/L 5-15 .CREAT EGFR(CKD-EPI) >90 >60 Jul 07, 2024 02:00 PM [facility] C DIFF PANEL Specimen Type: FECES No comment entered. Ordering Provider: JEVON ZAZUETA Report Released Date/Time: Jul 07, 2024 12:26 PM Reporting Lab: [facility] [address] Performing Lab: [facility] [address] C DIFF TOX B GENE PCR NEGATIVE Negative Jul 07, 2024 07:41 AM [facility] PHOSPHORUS Specimen Type: PLASMA No comment entered. Ordering Provider: JEVON ZAZUETA Report Released Date/Time: Jul 06, 2024 03:44 PM Reporting Lab: [facility] [address] Performing Lab: [facility] [address] PHOSPHORUS 3.1 mg/dL 2.3-4.3 Jul 07, 2024 07:41 AM [facility] BASIC METABOLIC PANEL+MG Specimen Type: PLASMA No comment entered. Ordering Provider: JEVON ZAZUETA Report Released Date/Time: Jul 06, 2024 03:44 PM Reporting Lab: [facility] [address] Performing Lab: [facility] [address] CREATININE 0.9 mg/dL 0.7-1.2 UREA NITROGEN 20 mg/dL 8-26 GLUCOSE 157 mg/dL H 70-100 SODIUM 136 mmol/L 136-145 POTASSIUM 3.7 mmol/L 3.5-5.1 CHLORIDE 102 mmol/L 98-107 CO2 21 mmol/L L 22-29 CALCIUM 9.8 mg/dL 8.4-10.2 MAGNESIUM 1.9 mg/dL 1.6-2.6 ANION GAP 13 mmol/L 5-15 .CREAT EGFR(CKD-EPI) >90 >60 Jul 07, 2024 07:40 AM [facility] CBC Specimen Type: BLOOD No comment entered. Ordering Provider: JEVON ZAZUETA Report Released Date/Time: Jul 06, 2024 03:44 PM Reporting Lab: [facility] [address] Performing Lab: [facility] [address] WBC 21.2 H 4.0-11.0 RBC 5.09 4.60-6.20 HGB 15.9 g/dL 13.5-17.9 HCT 48.3 41.0-54.0 MCV 94.9 fL 80.0-100.0 MCH 31.2 pg 27.0-33.0 MCHC 32.9 g/dL 32.0-37.5 PLT 500 H 150-400 MPV 10.3 fL 9.1-13.0 RDW 13.6 11.5-14.5 Jul 06, 2024 07:21 AM [facility] CBC Specimen Type: BLOOD No comment entered. Ordering Provider: JEVON ZAZUETA Report Released Date/Time: Jul 05, 2024 01:22 PM Reporting Lab: [facility] [address] Performing Lab: [facility] [address] WBC 18.0 H 4.0-11.0 RBC 4.83 4.60-6.20 HGB 14.6 g/dL 13.5-17.9 HCT 45.5 41.0-54.0 MCV 94.2 fL 80.0-100.0 MCH 30.2 pg 27.0-33.0 MCHC 32.1 g/dL 32.0-37.5 PLT 368 150-400 MPV 10.4 fL 9.1-13.0 RDW 13.6 11.5-14.5 Jul 06, 2024 07:21 AM [facility] PHOSPHORUS Specimen Type: PLASMA No comment entered. Ordering Provider: JEVON ZAZUETA Report Released Date/Time: Jul 05, 2024 01:22 PM Reporting Lab: [facility] [address] Performing Lab: [facility] [address] PHOSPHORUS 3.6 mg/dL 2.3-4.3 Jul 06, 2024 07:21 AM [facility] BASIC METABOLIC PANEL+MG Specimen Type: PLASMA No comment entered. Ordering Provider: JEVON ZAZUETA Report Released Date/Time: Jul 05, 2024 01:22 PM Reporting Lab: [facility] [address] Performing Lab: [facility] [address] CREATININE 0.7 mg/dL 0.7-1.2 UREA NITROGEN 12 mg/dL 8-26 GLUCOSE 108 mg/dL H 70-100 SODIUM 138 mmol/L 136-145 POTASSIUM 3.4 mmol/L L 3.5-5.1 CHLORIDE 104 mmol/L 98-107 CO2 20 mmol/L L 22-29 CALCIUM 9.3 mg/dL 8.4-10.2 MAGNESIUM 1.9 mg/dL 1.6-2.6 ANION GAP 14 mmol/L 5-15 .CREAT EGFR(CKD-EPI) >90 >60 Jul 05, 2024 07:17 AM [facility] MAGNESIUM Specimen Type: PLASMA No comment entered. Ordering Provider: JUANCARLOS ECHOLS S Report Released Date/Time: Jul 04, 2024 09:39 AM Reporting Lab: [facility] [address] Performing Lab: [facility] [address] MAGNESIUM 2.0 mg/dL 1.6-2.6 Jul 05, 2024 07:17 AM [facility] PHOSPHORUS Specimen Type: PLASMA No comment entered. Ordering Provider: JUANCARLOS ECHOLS S Report Released Date/Time: Jul 04, 2024 09:39 AM Reporting Lab: [facility] [address] Performing Lab: [facility] [address] PHOSPHORUS 2.0 mg/dL L 2.3-4.3 Jul 05, 2024 07:17 AM [facility] BASIC METABOLIC PANEL+MG Specimen Type: PLASMA No comment entered. Ordering Provider: JUANCARLOS ECHOLS S Report Released Date/Time: Jul 04, 2024 09:39 AM Reporting Lab: [facility] [address] Performing Lab: [facility] [address] CREATININE 0.7 mg/dL 0.7-1.2 UREA NITROGEN 12 mg/dL 8-26 GLUCOSE 84 mg/dL 70-100 SODIUM 135 mmol/L L 136-145 POTASSIUM 3.8 mmol/L 3.5-5.1 CHLORIDE 104 mmol/L 98-107 CO2 24 mmol/L 22-29 CALCIUM 9.3 mg/dL 8.4-10.2 MAGNESIUM 2.0 mg/dL 1.6-2.6 ANION GAP 7 mmol/L 5-15 .CREAT EGFR(CKD-EPI) >90 >60 Jul 05, 2024 07:16 AM [facility] CBC Specimen Type: BLOOD No comment entered. Ordering Provider: JUANCARLOS ECHOLS S Report Released Date/Time: Jul 04, 2024 09:39 AM Reporting Lab: [facility] [address] Performing Lab: [facility] [address] WBC 18.3 H 4.0-11.0 RBC 4.49 L 4.60-6.20 HGB 14.1 g/dL 13.5-17.9 HCT 43.4 41.0-54.0 MCV 96.7 fL 80.0-100.0 MCH 31.4 pg 27.0-33.0 MCHC 32.5 g/dL 32.0-37.5 PLT 317 150-400 MPV 10.0 fL 9.1-13.0 RDW 13.9 11.5-14.5 Jul 04, 2024 07:17 AM [facility] BASIC METABOLIC PANEL+MG Specimen Type: PLASMA No comment entered. Ordering Provider: GABINO CAMERON Report Released Date/Time: Jul 03, 2024 06:31 PM Reporting Lab: [facility] [address] Performing Lab: [facility] [address] CREATININE 0.7 mg/dL 0.7-1.2 UREA NITROGEN 16 mg/dL 8-26 GLUCOSE 129 mg/dL H 70-100 SODIUM 137 mmol/L 136-145 POTASSIUM 3.7 mmol/L 3.5-5.1 CHLORIDE 107 mmol/L 98-107 CO2 22 mmol/L 22-29 CALCIUM 9.0 mg/dL 8.4-10.2 MAGNESIUM 1.9 mg/dL 1.6-2.6 ANION GAP 8 mmol/L 5-15 .CREAT EGFR(CKD-EPI) >90 >60 Jul 04, 2024 07:17 AM [facility] PHOSPHORUS Specimen Type: PLASMA No comment entered. Ordering Provider: GABINO CAMERON Report Released Date/Time: Jul 03, 2024 06:31 PM Reporting Lab: [facility] [address] Performing Lab: [facility] [address] PHOSPHORUS 2.8 mg/dL 2.3-4.3 Jul 04, 2024 07:16 AM [facility] CBC Specimen Type: BLOOD No comment entered. Ordering Provider: GABINO CAMERON Report Released Date/Time: Jul 03, 2024 06:31 PM Reporting Lab: [facility] [address] Performing Lab: [facility] [address] WBC 20.6 H 4.0-11.0 RBC 4.63 4.60-6.20 HGB 14.2 g/dL 13.5-17.9 HCT 43.4 41.0-54.0 MCV 93.7 fL 80.0-100.0 MCH 30.7 pg 27.0-33.0 MCHC 32.7 g/dL 32.0-37.5 PLT 329 150-400 MPV 10.4 fL 9.1-13.0 RDW 13.8 11.5-14.5 Jul 04, 2024 07:16 AM [facility] CBC & DIFF Specimen Type: BLOOD Comment: Manual Differential Performed Ordering Provider: GABINO CAMERON Report Released Date/Time: Jul 03, 2024 06:31 PM Reporting Lab: [facility] [address] Performing Lab: [facility] [address] WBC 20.6 H 4.0-11.0 RBC 4.63 4.60-6.20 [...] MORPHOLOGY PRESENT Jul 04, 2024 07:15 AM [facility] BNP Specimen Type: PLASMA No comment entered. Ordering Provider: GABINO CAMERON Report Released Date/Time: Jul 03, 2024 06:31 PM Reporting Lab: [facility] [address] Performing Lab: [facility] [id number] BNP 292 pg/mL H <99 Jul 03, 2024 10:32 PM [facility] FINGERSTICK GLUCOSE Specimen Type: BLOOD Comment: Save Result Nurse Notified Ordering Provider: KATELYNN PERSON Report Released Date/Time: Jul 03, 2024 10:50 PM Reporting Lab: [facility] [phone] Performing Lab: [facility] [phone] FINGERSTICK GLUCOSE 126 mg/dL H 70-100 Jul 03, 2024 05:33 PM [facility] FINGERSTICK GLUCOSE Specimen Type: BLOOD Comment: Save Result Nurse Notified Ordering Provider: KATELYNN PERSON Report Released Date/Time: Jul 03, 2024 05:46 PM Reporting Lab: [facility] [phone] Performing Lab: [facility] [phone] FINGERSTICK GLUCOSE 141 mg/dL H 70-100 Jul 03, 2024 02:31 PM [facility] POC ABG/ELECTROLYTES Specimen Type: ARTERIAL BLOOD Comment: FIO2 = 97% Patient Temp: 36.0 C Sample Type = ARTERIAL Ordering Provider: MAZIN ARREDONDO Report Released Date/Time: Jul 03, 2024 01:48 PM Reporting Lab: [facility] [phone] Performing Lab: [facility] [address] POC PH 7.387 7.35-7.45 POC PCO2 34.4 [...] H 80.0-105.0 Jul 03, 2024 01:05 PM [facility] POC ABG/ELECTROLYTES Specimen Type: ARTERIAL BLOOD Comment: FIO2 = 53% Patient Temp: 36.2 C Sample Type = ARTERIAL Ordering Provider: MAZIN ARREDONDO Report Released Date/Time: Jul 03, 2024 01:48 PM Reporting Lab: [facility] [phone] Performing Lab: [facility] [address] POC PH 7.280 L 7.35-7.45 POC PCO2 [...] mm[Hg] 80.0-105.0 Jul 03, 2024 06:15 AM [facility] URINALYSIS Specimen Type: URINE No comment entered. Ordering Provider: MARYBETH POWELL Report Released Date/Time: Jun 12, 2024 04:01 PM Reporting Lab: [facility] [phone] Performing Lab: [facility] [phone] URINE COLOR YELLOW SPECIFIC GRAVITY 1.031 1.003-1.03 [...] 250 NEGATIVE Jul 03, 2024 06:13 AM [facility] CBC Specimen Type: BLOOD No comment entered. Ordering Provider: MARYBETH POWELL Report Released Date/Time: Jun 12, 2024 03:59 PM Reporting Lab: [facility] [phone] Performing Lab: [facility] [phone] WBC 15.8 H 4.0-11.0 RBC 5.11 4.60-6.20 HGB 16.1 g/dL 13.5-17.9 HCT 49.1 41.0-54.0 MCV 96.1 fL 80.0-100.0 MCH 31.5 pg 27.0-33.0 MCHC 32.8 g/dL 32.0-37.5 PLT 357 150-400 MPV 9.8 fL 9.1-13.0 RDW 13.7 11.5-14.5 Jun 24, 2024 09:50 AM [facility] BASIC METABOLIC PANEL+MG Specimen Type: PLASMA Comment: Specimen received in Lab at: [id number] Ordering Provider: JEVON ZAZUETA Report Released Date/Time: Jun 23, 2024 06:07 PM Reporting Lab: [facility] [phone] Performing Lab: [facility] [phone] CREATININE 0.8 mg/dL 0.7-1.2 UREA NITROGEN 13 mg/dL 8-26 GLUCOSE 135 mg/dL H 70-100 SODIUM 135 mmol/L L 136-145 POTASSIUM 3.6 mmol/L 3.5-5.1 CHLORIDE 103 mmol/L 98-107 CO2 24 mmol/L 22-29 CALCIUM 9.2 mg/dL 8.4-10.2 MAGNESIUM 1.9 mg/dL 1.6-2.6 ANION GAP 8 mmol/L 5-15 .CREAT EGFR(CKD-EPI) >90 >60 Jun 24, 2024 09:50 AM [facility] CBC Specimen Type: BLOOD Comment: Specimen received in Lab at: [id number] Ordering Provider: JEVON ZAZUETA Report Released Date/Time: Jun 23, 2024 06:07 PM Reporting Lab: [facility] [facility] [address] Performing Lab: [facility] [address] WBC 15.5 H 4.0-11.0 RBC 4.93 4.60-6.20 HGB 15.2 g/dL 13.5-17.9 HCT 46.5 41.0-54.0 MCV 94.3 fL 80.0-100.0 MCH 30.8 pg 27.0-33.0 MCHC 32.7 g/dL 32.0-37.5 PLT 223 150-400 MPV 11.4 fL 9.1-13.0 RDW 13.9 11.5-14.5 Jun 23, 2024 07:52 AM [facility] COMPREHENSIVE METABOLIC PANEL+MG Specimen Type: PLASMA No comment entered. Ordering Provider: JEVON ZAZUETA Report Released Date/Time: Jun 22, 2024 05:51 PM Reporting Lab: [facility] [address] Performing Lab: [facility] [address] CREATININE 0.7 mg/dL 0.7-1.2 UREA NITROGEN 16 [...] >90 >60 Jun 23, 2024 07:52 AM [facility] CBC & DIFF Specimen Type: BLOOD Comment: Automated Differential Performed Ordering Provider: JEVON ZAZUETA Report Released Date/Time: Jun 22, 2024 05:51 PM Reporting Lab: [facility] [address] Performing Lab: [facility] [address] WBC 14.9 H 4.0-11.0 RBC 5.09 4.60-6.20 [...] 0.1 0.0-0.1 Jun 22, 2024 06:10 PM [facility] CBC Specimen Type: BLOOD No comment entered. Ordering Provider: JEVON ZAZUETA Report Released Date/Time: Jun 22, 2024 05:51 PM Reporting Lab: [facility] [address] Performing Lab: [facility] [address] WBC 16.9 H 4.0-11.0 RBC 5.28 4.60-6.20 HGB 16.9 g/dL 13.5-17.9 HCT 50.4 41.0-54.0 MCV 95.5 fL 80.0-100.0 MCH 32.0 pg 27.0-33.0 MCHC 33.5 g/dL 32.0-37.5 PLT 223 150-400 MPV 10.9 fL 9.1-13.0 RDW 14.0 11.5-14.5 Jun 22, 2024 06:10 PM [facility] COMPREHENSIVE METABOLIC PANEL+MG Specimen Type: PLASMA No comment entered. Ordering Provider: JEVON ZAZUETA Report Released Date/Time: Jun 22, 2024 05:51 PM Reporting Lab: [facility] [address] Performing Lab: [facility] [address] CREATININE 0.7 mg/dL 0.7-1.2 UREA NITROGEN 17 [...] >90 >60 Jun 21, 2024 06:48 PM [facility] URINALYSIS Specimen Type: URINE No comment entered. Ordering Provider: DELIA MARTINEZ Report Released Date/Time: Jun 21, 2024 05:45 PM Reporting Lab: [facility] [address] Performing Lab: [facility] [address] URINE COLOR YELLOW SPECIFIC GRAVITY 1.041 H [...] 500 NEGATIVE Jun 21, 2024 05:34 PM [facility] POC CREATININE Specimen Type: BLOOD No comment entered. Ordering Provider: DELIA MARTINEZ Report Released Date/Time: Jun 21, 2024 06:07 PM Reporting Lab: [facility] [address] Performing Lab: [facility] [address] POC CREATININE 1.1 mg/dL 0.6-1.3 Jun 21, 2024 05:30 PM [facility] POC ABG/LACTATE Specimen Type: VENOUS BLOOD No comment entered. Ordering Provider: DELIA MARTINEZ Report Released Date/Time: Jun 21, 2024 06:07 PM Reporting Lab: [facility] [address] Performing Lab: [facility] [address] POC PH 7.470 H 7.31-7.41 POC PCO2 31.2 mm[Hg] L 41.00-51 .0 0 POC PO2 46 mm[Hg] H 35.0-40.0 POC TCO2 24 mmol/L 24.0-29.0 POC HCO3 22.7 mmol/L L 23.0-28.0 POC BE ECT -1 mmol/L POC SO2 85 H 70-75 POC LACTATE 1.85 mmol/L 0.90-1.70 Jun 21, 2024 05:24 PM [facility] PROTHROMBIN TIME/INR Specimen Type: PLASMA No comment entered. Ordering Provider: DELIA MARTINEZ Report Released Date/Time: Jun 21, 2024 05:30 PM Reporting Lab: [facility] [address] Performing Lab: [facility] [address] .INR 1.2 H 0.8-1.1 .PT 13.9 s H 9.4-12.5 Jun 21, 2024 05:24 PM [facility] EXTRA GOLD GEL TUBE Specimen Type: SERUM No comment entered. Ordering Provider: DELIA MARTINEZ Report Released Date/Time: Jun 21, 2024 05:41 PM Reporting Lab: [facility] [address] Performing Lab: [facility] [address] EXTRA GOLD GEL TUBE RECEIVED Jun 21, 2024 05:24 PM [facility] LIPASE Specimen Type: PLASMA No comment entered. Ordering Provider: DELIA MARTINEZ Report Released Date/Time: Jun 21, 2024 05:30 PM Reporting Lab: [facility] [address] Performing Lab: [facility] [address] LIPASE 32 U/L <60 Jun 21, 2024 05:24 PM [facility] COMPREHENSIVE METABOLIC PANEL+MG Specimen Type: PLASMA No comment entered. Ordering Provider: DELIA MARTINEZ Report Released Date/Time: Jun 21, 2024 05:30 PM Reporting Lab: [facility] [address] Performing Lab: [facility] [address] CREATININE 0.9 mg/dL 0.7-1.2 UREA NITROGEN 29 [...] mg/dL <0.5 Jun 21, 2024 05:24 PM [facility] CBC & DIFF Specimen Type: BLOOD Comment: Manual Differential Performed Ordering Provider: DELIA MARTINEZ Report Released Date/Time: Jun 21, 2024 05:30 PM Reporting Lab: [facility] [address] Performing Lab: [facility] [address] WBC 21.3 H 4.0-11.0 RBC 5.48 4.60-6.20 [...] Jul 19, 2024 11:29 PM 7 [place] [facility] Jul 19, 2024 05:39 PM 4 [place] [facility] Jul 19, 2024 05:23 PM 8 [place] [facility] Jul 19, 2024 12:50 PM 2 [place] [facility] Jul 19, 2024 11:03 AM 8 [facility] [...] 15, 2024 08:30 AM VA-TOBACCO FORMER USER [facility] Tobacco [...] QUIT 15 YRS OR MORE [facility] May 06, 2023 11:30 AM VA-TOBACCO FORMER USER [facility] May 06, 2023 11:30 AM VA-TOBACCO [...] PM CHEST 1 VIEW: FLACA WEAVER YAMIL [id number] -1950 M Exm Date: JUL 18, 2024@18:15 Req Phys: LEISA GOLDEN Pat Loc: 3ES/07-18-2024@19:00 Img Loc: MAIN X-RAY Service: PRIMARY CARE [place] [address] (Case [id number] COMPLETE) CHEST 1 VIEW (RAD Detailed) CPT:05209 Proc Modifiers : PORTABLE EXAM Reason for Study: SOB Clinical History: IS NOT under investigation for COVID-19 or is COVID-19 negative 73 yo with SOB Responsible provider name and phone number to notify for critical findings if other than user placing the order and pager listed below: User placing orders pager: [phone] LAST CREATININE 1.2 (07/17/24) Report Status: Verified Date Reported: JUL 18, 2024 Date Verified: JUL 18, 2024 Pin Cleaner E-Sig:/ALEXI/CARLOS A CUNNINGHAM DO Report: EXAMINATION: CHEST 1 VIEW Reason for Study: SOB IS NOT under investigation for COVID-19 or is COVID-19 negative 73 yo with SOB Responsible provider name and phone number to notify for critical findings if other than user placing the order and pager listed below: User placing orders pager: [phone] LAST CREATININE 1.2 (07/17/24) SOB TECHNIQUE: Single [...] Interpreting Staff: CARLOS A CUNNINGHAM DO, RADIOLOGIST (Pin Cleaner) /TIFFANIEB CARLOS A CUNNINGHAM [facility] Jul 16, 2024 07:49 AM PENDING SALE TO [facility] CT ABDOMEN/PELVIS: FLACA WEAVER YAMIL [id number] -1950 M Exm Date: JUL 16, 2024@07:49 Req Phys: JATINDER CABRERA Loc: 07-17-2024@09:02 Img Loc: OUTSOURCE CT Service: Unknown (Case [id number] COMPLETE) PENDING SALE TO [facility] CT ABDOMEN/PELVIS (CT Detailed) CPT:15573 Reason for Study: outside study Clinical History: [...] Diagnostic Code: VERIFIED BY: / *ELECTRONICALLY FILED* [facility] Jul 13, 2024 09:41 AM PENDING SALE TO [facility] CT ABDOMEN/PELVIS: FLACA WEAVER [id number] -1950 M Exm Date: JUL 13, 2024@09:41 Req Phys: JATINDER CABRERA Loc: 07-17-2024@09:08 Img Loc: OUTSOURCE CT Service: Unknown (Case [id number] COMPLETE) NON [facility] CT ABDOMEN/PELVIS (CT Detailed) CPT:36448 Reason for Study: outside study Clinical History: [...] Diagnostic Code: VERIFIED BY: / *ELECTRONICALLY FILED* [facility] Jul 08, 2024 10:09 AM CHEST 2 VIEWS PA AND LAT: FLACA WEAVER [id number] -1950 M Exm Date: JUL 08, 2024@10:09 Req Phys: KATELYNN PERSON Pat Loc: 2KG/07-08-2024@11:49 Img Loc: MAIN X-RAY Service: [facility] [place] [address] (Case 24 COMPLETE) CHEST 2 VIEWS PA AND LAT (RAD Detailed) CPT:80353 Reason for Study: Uptrending WBC, POD 5 [...] 08, 2024 Date Verified: JUL 08, 2024 Pin Cleaner E-Sig: Report: CHEST 2 VIEWS PA AND [...] cardiopulmonary disease. READING PHYSICIAN: Sarbjit Vaughn M.D. -[phone] 07/08/2024 12:46 [facility] National Teleradiology Program [phone] (For Medical Practitioner Use Only) Attention Patients / Veterans: If you have questions or concerns about these test results, please contact your ordering provider or primary care team. Primary Interpreting Staff: RADIOLOGY,OUTSIDE SERVICE, Staff Physician / RADIOLOGY,OUTSIDE SERVICE [facility] Jul 08, 2024 10:[address] (AP) ABDOMEN/PELVIS W CONTRAST: FLACA WEAVER [id number] -1950 M Exm Date: JUL 08, 2024@10:00 Req Phys: KATELYNN PERSON [facility] Loc: 2KG/07-08-2024@12:07 Img Loc: CT IMAGING Service: [facility] [address] (Case 22 COMPLETE) CT (AP) ABDOMEN/PELVIS W CONTRAST(CT Detailed) CPT:92610 Contrast Media : Non-ionic Iodinated Reason for [...] 08, 2024 Date Verified: JUL 08, 2024 Pin Cleaner E-Sig: Report: CT (AP) ABDOMEN/PELVIS W CONTRAST [...] as noted above READING PHYSICIAN: Celestino Blanc -[phone] 07/08/2024 13:04 EST [facility] National Teleradiology Program [phone] (For Medical Practitioner Use Only) Attention Patients / Veterans: If you have questions or concerns about these test results, please contact your ordering provider or primary care team. Primary Interpreting Staff: RADIOLOGY,OUTSIDE SERVICE, Staff Physician / RADIOLOGY,OUTSIDE SERVICE [facility] Jun 22, 2024 11:49 AM ABSCESS DRAIN PLACEMENT PERITONEAL (P): FLACA WEAVER [id number] -1950 M Exm Date: JUN 22, 2024@11:49 Req Phys: ADINAANGELA Maeve Pat Loc: [facility]/06-22-2024@17:14 Img Loc: INTERVENTIONAL RADIOLOGY Service: [facility] [place] [address] (Case [id number] COMPLETE) IR PERITONEAL/RETROPERITONEAL PER(ANI Detailed) CPT:95588 Reason for Study: diverticulitis with abscess (Case 3570 COMPLETE) IR MOD SEDATION 10-22 MIN (ANI Detailed) CPT:76637 Clinical History: IS NOT under investigation for COVID-19 or is COVID-19 negative 73 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 please place abscess drain. Contact number for responsible provider who can be reached for any questions or notifications of critical findings: [phone] n/a LAST CREATININE 0.9 (06/21/24) Report Status: Verified Date Reported: JUN 22, 2024 Date Verified: JUN 22, 2024 Pin Cleaner E-Sig:/ES/LISA PENDLETON MD Report: PROCEDURES: Placement of [...] Using real-time CT fluoroscopy, a 5 Tajik CSRware centesis catheter was advanced into the collection [...] Primary Interpreting Staff: LISA PENDLETON MD, RADIOLOGIST (Pin Cleaner) /JRT LISA PENDLETON [facility] Jun 22, 2024 11:[address] NEEDLE PLACEMENT (P): MEGFLACA LOBO [id number] -1950 M Exm Date: JUN 22, 2024@11:48 Req Phys: ANGELA HOLDEN [facility] Loc: [facility]/06-22-2024@17:14 [facility] Loc: CT IMAGING Service: [facility] [place] [address] (Case [id number] COMPLETE) CT SCAN FOR NEEDLE PLACEMENT (CT Detailed) CPT:03177 Reason for Study: l pelvic abscess drain Clinical History: Report Status: Verified Date Reported: JUN 22, 2024 Date Verified: JUN 22, 2024 Pin Cleaner E-Sig:/ES/LISA PENDLETON MD Report: PROCEDURES: Placement of [...] Using real-time CT fluoroscopy, a 5 Tajik Buzzoekesis catheter was advanced into the collection in [...] Primary Interpreting Staff: LISA PENDLETON MD, RADIOLOGIST (Pin Cleaner) /JRT LISA PENDLETON [facility] Jun 21, 2024 06:[address] (AP) ABDOMEN/PELVIS (P): FLACA WEAVER [id number] -1950 M Ex Date: JUN 21, 2024@18:09 Req Phys: DELIA MARTINEZ Loc: [facility] EMERGENCY DEPT WALK-IN (Re Img Loc: CT IMAGING Service: [place] [address] (Case [id number] COMPLETE) CT (AP) ABDOMEN/PELVIS W CONTRAST(CT Detailed) CPT:95389 Contrast Media : Non-ionic Iodinated Reason for [...] 21, 2024 Date Verified: JUN 21, 2024 Pin Cleaner E-Sig:/ALEXI/CARLOS A CUNNINGHAM DO Report: EXAMINATION: CT [...] Interpreting Staff: CARLOS A CUNNINGHAM DO, RADIOLOGIST (Pin Cleaner) /CARLOS A ROWELL [facility] Pathology Reports: +/- 30 days of [...] PM LR MICROBIOLOGY RE PORT: Reporting Lab: [facility] [CLIA# [id number]] [place] [address] Accession [UID]: [id number] [[id number]] Received: Jul 16, 2024@14:41 Collection sample: BLOOD Collection date: Jul 16, 2024 14:07 Provider: LEISA GOLDEN Comment on specimen: R AC, RECEIVED 2 BLOOD CULTURE BOTTLES Test(s) ordered: CULTURE & SUSCEPTIBILITY...... completed: Jul 22, 2024 * BACTERIOLOGY FINAL REPORT => Jul 22, 2024 13:39 TECH CODE: 95338 CULTURE RESULTS: NO GROWTH 5 DAYS Bacteriology Remark(s): THIS REPORT IS FINAL =--=--=--=--=--=--=--=--=--= --=--=--=--=--=--=--=--=--=- -=--=--=--=--=--=--=-- Performing Laboratory: Bacteriology Report Performed By: [facility] [CLIA# [id number]] [place] [address] [facility] Jul 16, 2024 01:54 PM LR MICROBIOLOGY RE PORT: Reporting Lab: [facility] [IA# [id number]] [place] [address] Accession [UID]: [id number] [[id number]] Received: Jul 16, 2024@14:41 Collection sample: BLOOD Collection date: Jul 16, 2024 13:54 Provider: LEISA GOLDEN Comment on specimen: [place] AC, RECEIVED 2 BLOOD CULTURE BOTTLES Test(s) ordered: CULTURE & SUSCEPTIBILITY...... completed: Jul 22, 2024 * BACTERIOLOGY FINAL REPORT => Jul 22, 2024 13:39 TECH CODE: [id number] CULTURE RESULTS: NO GROWTH 5 DAYS Bacteriology Remark(s): THIS REPORT IS FINAL =--=--=--=--=--=--=--=--=--= --=--=--=--=--=--=--=--=--=- -=--=--=--=--=--=--=-- Performing Laboratory: Bacteriology Report Performed By: [facility] [IA# [id number]] [place] [address] [facility] Jul 03, 2024 05:59 AM LR SURGICAL PATHOL OGY REPORT: LOCAL TITLE: LR SURGICAL PATHOLOGY REPORT STANDARD TITLE: PATHOLOGY REPORT DATE OF NOTE: JUL 06, 2024@10:40:48 ENTRY DATE: JUL 06, 2024@10:40:48 AUTHOR: EDUARDO PALOMARES EXP COSIGNER: URGENCY: STATUS: COMPLETED $APHDR Reporting Lab: [facility] [IA# [id number]] [place] [address] - - - - - - - [...] - PATHOLOGY REPORT Accession No. [id number] - - - - - - - [...] - PATHOLOGY REPORT Accession No. [id number] - - - - - - - [...] Second circumferential surgical margin, en face; E-F: Bandmill Operator diverticula; G: Bandmill Operator section of mesentery; H: Random call center representative section of additional adipose [...] One colonic tissue ring, bisected transversely. [facility]: Microscopic examination performed. DIAGNOSIS: 1. Colon, sigmoid, sigmoidectomy-- - Diverticulosis with perforation and focal abscess formation 2. Colon, anastomotic rings, excision-- - Viable colonic mucosa without diagnostic abnormality /es/ EDUARDO PALOMARES MD STAFF PATHOLOGIST Signed Jul 06, 2024@10:40 Performing Laboratory: Surgical Pathology Report Performed By: [facility] [CLIA# [id number]] [place] [address] $FTR - - - - - - [...] - - FLACA WEAVER STANDARD FORM 515 ID:[id number] SEX:M :1950 AGE: 73 LOC:68468 ADM:Jun DX:DIVERTICULITIS PCP: Jatinder Cabrera /alexi/ EDUARDO PALOMARES MD STAFF PATHOLOGIST Signed: 07/06/2024 10:40 EDUARDO PALOMARES [facility] Jun 22, 2024 01:15 PM LR MICROBIOLOGY RE PORT: Reporting Lab: [facility] [CLIA# [id number]] [place] [address] Accession [UID]: [id number] [[id number]] Received: Jun 22, 2024@13:38 Collection sample: FLUID Collection date: Jun 22, 2024 13:15 Provider: ANGELA HOLDEN Comment on specimen: LLQ ABSCESS, RECEIVED IN ANAEROBIC TRANSPORT VIAL Test(s) ordered: GRAM STAIN.................... completed: Jun 22, 2024 15:03 CULTURE & SUSCEPTIBILITY...... completed: Jun 25, 2024 * BACTERIOLOGY FINAL REPORT => Jun 25, 2024 10:56 TECH CODE: [id number] GRAM STAIN: DIRECT SMEAR of specimen before [...] -=--=--=--=--=--=--=-- Performing Laboratory: Bacteriology Report Performed By: [facility] [CLIA# [id number]] [place] [address] [facility] Jun 22, 2024 01:15 PM LR MICROBIOLOGY RE PORT: Reporting Lab: [facility] [CLIA# [id number]] [place] [address] Accession [UID]: [id number] [[id number]] Received: Jun 22, 2024@13:38 Collection sample: FLUID Collection date: Jun 22, 2024 13:15 Provider: ANGELA HOLDEN Comment on specimen: LLQ ABSCESS, RECEIVED IN ANAEROBIC TRANSPORT VIAL Test(s) ordered: ANAEROBIC CULTURE............. completed: Jun 28, 2024 * BACTERIOLOGY FINAL REPORT => Jun 28, 2024 10:08 TECH CODE: [id number] CULTURE RESULTS: HEAVY GROWTH MIXED ANAEROBES Comment: including the followin+ Bacteroides fragilis 4+ Bacteroides vulgatus 4+ Clostridium innocuum Beta-lactamase negative 4+ Bacteroides caccae 4+ Parvimonas micra 4+ Bacteroides uniformis 4+ Gemella morbillorum 4+ anaerobic small, Gram Positive Rods 4+ Bacteroides thetaiotaomicron Standard workup is now complete. Bacteriology Remark(s): THIS REPORT IS FINAL =--=--=--=--=--=--=--=--=--= --=--=--=--=--=--=--=--=--=- -=--=--=--=--=--=--=-- Performing Laboratory: Bacteriology Report Performed By: [facility] [CLIA# [id number]] [place] [address] [facility] Jun 21, 2024 06:12 PM LR MICROBIOLOGY RE PORT: Reporting Lab: [facility] [CLIA# [id number]] [place] [address] Accession [UID]: [id number] [[id number]] Received: Jun 21, 2024@18:12 Collection sample: BLOOD [...] -=--=--=--=--=--=--=-- Performing Laboratory: Bacteriology Report Performed By: [facility] [CLIA# [id number]] [place] [address] [facility] Jun 21, 2024 06:11 PM LR MICROBIOLOGY RE PORT: Reporting Lab: [facility] [CLIA# [id number]] [place] [address] Accession [UID]: [id number] [[id number]] Received: Jun 21, 2024@18:11 Collection sample: BLOOD [...] -=--=--=--=--=--=--=-- Performing Laboratory: Bacteriology Report Performed By: [facility] [CLIA# [id number]] [place] [address] [facility]
--- OUTSIDE RECORDS SUMMARY | 2024-08-01 08:02 | XMS_ITS ---
[place] DAILY HOSPITALIZATION DATA [facility] Encounter Summary Created on: August 01, 2024 MEG FLACADARCI LOBO : 1950 Sex: Male Author Name [facility] [place] [facility] [place] Address [address] [place] [address] Care Team Providers Care Medical Technologist Prn Name Role Phone JATINDER CABRERA Primary Care [...] PART A Sep 29, 2016 PART A [id number] [phone] JUDY WEAVER PATIENT Selected Encounter This section includes the information on record at [place] for the Encounter. Date/Time Encounter Type Encounter Description Reason Pro vider Source Jul 19, 2024 05:49 PM Inpatient Visit DAILY HOSPITALIZATION DATA [facility] Encounter Template Text not used by [place] [...] & SCREEN - LAB BLOOD WC [facility] Jul 03, 2024 12:00 AM Laboratory - Blood Bank Order TYPE & SCREEN - LAB BLOOD WC [facility] Jul 16, 2024 12:00 [...] Comment Jul 21, 2024 10:[address] [facility] BASIC METABOLIC PANEL+MG Specimen Type: PLASMA No comment entered. Ordering Provider: SARAI GOLDEN Report Released Date/Time: Jul 20, 2024 06:50 PM Reporting Lab: [facility] [address] Performing Lab: [facility] [address] CREATININE 0.8 mg/dL 0.7-1.2 UREA NITROGEN 31 mg/dL H 8-26 GLUCOSE 120 mg/dL H 70-100 SODIUM 125 mmol/L L 136-145 POTASSIUM 4.4 mmol/L 3.5-5.1 CHLORIDE 100 mmol/L 98-107 CO2 17 mmol/L L 22-29 CALCIUM 9.6 mg/dL 8.4-10.2 MAGNESIUM 1.9 mg/dL 1.6-2.6 ANION GAP 8 mmol/L 5-15 .CREAT EGFR(CKD-EPI) >90 >60 Jul 21, 2024 10:[address] [facility] CBC Specimen Type: BLOOD No comment entered. Ordering Provider: SARAI GOLDEN Report Released Date/Time: Jul 20, 2024 06:50 PM Reporting Lab: [facility] [address] Performing Lab: [facility] [address] WBC 16.0 H 4.0-11.0 RBC 5.16 4.60-6.20 HGB 15.8 g/dL 13.5-17.9 HCT 45.5 41.0-54.0 MCV 88.2 fL 80.0-100.0 MCH 30.6 pg 27.0-33.0 MCHC 34.7 g/dL 32.0-37.5 PLT 428 H 150-400 MPV 10.8 fL 9.1-13.0 RDW 13.6 11.5-14.5 Jul 20, 2024 01:[address] [facility] SODIUM,URINE RANDOM Specimen Type: URINE No comment entered. Ordering Provider: SARAI GOLDEN Report Released Date/Time: Jul 20, 2024 08:22 AM Reporting Lab: [facility] [address] Performing Lab: [facility] [address] SODIUM,URINE RANDOM <20 mmol/L Jul 20, 2024 01:[address] [facility] OSMOLALITY,URINE Specimen Type: URINE No comment entered. Ordering Provider: SARAI GOLDEN Report Released Date/Time: Jul 20, 2024 08:22 AM Reporting Lab: [facility] [address] Performing Lab: [facility] [address] OSMOLALITY,URIN E 648 mosm/kg 500-800 Jul 20, 2024 06:[address] [facility] BASIC METABOLIC PANEL+MG Specimen Type: PLASMA No comment entered. Ordering Provider: SARAI GOLDEN Report Released Date/Time: Jul 19, 2024 06:13 PM Reporting Lab: [facility] [address] Performing Lab: [facility] [address] CREATININE 0.8 mg/dL 0.7-1.2 UREA NITROGEN 36 mg/dL H 8-26 GLUCOSE 111 mg/dL H 70-100 SODIUM 121 mmol/L L 136-145 POTASSIUM 4.1 mmol/L 3.5-5.1 CHLORIDE 99 mmol/L 98-107 CO2 14 mmol/L L 22-29 CALCIUM 9.5 mg/dL 8.4-10.2 MAGNESIUM 1.8 mg/dL 1.6-2.6 ANION GAP 8 mmol/L 5-15 .CREAT EGFR(CKD-EPI) >90 >60 Jul 20, 2024 06:[address] [facility] CBC & DIFF Specimen Type: BLOOD Comment: Automated Differential Performed Ordering Provider: SARAI GOLDEN Report Released Date/Time: Jul 19, 2024 06:13 PM Reporting Lab: [facility] [address] Performing Lab: [facility] [address] WBC 16.6 H 4.0-11.0 RBC 4.96 4.60-6.20 [...] 0.0-0.1 Jul 20, 2024 05:[address] [facility] OSMOLALITY,SERUM Specimen Type: SERUM No comment entered. Ordering Provider: SARAI GOLDEN Report Released Date/Time: Jul 20, 2024 09:47 AM Reporting Lab: [facility] [address] Performing Lab: [facility] [address] OSMOLALITY,SERU M 266 mosm/kg L 276-305 Jul 19, 2024 08:[address] [facility] BASIC METABOLIC PANEL+MG Specimen Type: PLASMA No comment entered. Ordering Provider: SARAI GOLDEN Report Released Date/Time: Jul 18, 2024 10:24 PM Reporting Lab: [facility] [address] Performing Lab: [facility] [address] CREATININE 1.0 mg/dL 0.7-1.2 UREA NITROGEN 40 mg/dL H 8-26 GLUCOSE 104 mg/dL H 70-100 SODIUM 129 mmol/L L 136-145 POTASSIUM 3.3 mmol/L L 3.5-5.1 CHLORIDE 104 mmol/L 98-107 CO2 16 mmol/L L 22-29 CALCIUM 8.0 mg/dL L 8.4-10.2 MAGNESIUM 1.7 mg/dL 1.6-2.6 ANION GAP 9 mmol/L 5-15 .CREAT EGFR(CKD-EPI) 80 >60 Jul 19, 2024 08:[address] [facility] CBC Specimen Type: BLOOD No comment entered. Ordering Provider: SARAI GOLDEN Report Released Date/Time: Jul 18, 2024 10:24 PM Reporting Lab: [facility] [address] Performing Lab: [facility] [address] WBC 17.3 H 4.0-11.0 RBC 4.83 4.60-6.20 HGB 14.8 g/dL 13.5-17.9 HCT 42.6 41.0-54.0 MCV 88.2 fL 80.0-100.0 MCH 30.6 pg 27.0-33.0 MCHC 34.7 g/dL 32.0-37.5 PLT 456 H 150-400 MPV 10.8 fL 9.1-13.0 RDW 13.7 11.5-14.5 Jul 17, 2024 06:[address] [facility] PHOSPHORUS Specimen Type: PLASMA No comment entered. Ordering Provider: SARAI GOLDEN Report Released Date/Time: Jul 17, 2024 01:54 PM Reporting Lab: [facility] [address] Performing Lab: [facility] [address] PHOSPHORUS 2.9 mg/dL 2.3-4.3 Jul 17, 2024 06:[address] [facility] BASIC METABOLIC PANEL+MG Specimen Type: PLASMA No comment entered. Ordering Provider: SARAI GOLDEN Report Released Date/Time: Jul 17, 2024 01:54 PM Reporting Lab: [facility] [address] Performing Lab: [facility] [address] CREATININE 1.2 mg/dL 0.7-1.2 UREA NITROGEN 62 mg/dL H 8-26 GLUCOSE 116 mg/dL H 70-100 SODIUM 128 mmol/L L 136-145 POTASSIUM 3.8 mmol/L 3.5-5.1 CHLORIDE 100 mmol/L 98-107 CO2 16 mmol/L L 22-29 CALCIUM 9.3 mg/dL 8.4-10.2 MAGNESIUM 2.1 mg/dL 1.6-2.6 ANION GAP 12 mmol/L 5-15 .CREAT EGFR(CKD-EPI) 64 >60 Jul 17, 2024 07:[address] [facility] CBC & DIFF Specimen Type: BLOOD Comment: Manual Differential Performed Ordering Provider: SARAI GOLDEN Report Released Date/Time: Jul 16, 2024 04:52 PM Reporting Lab: [facility] [address] Performing Lab: [facility] [address] WBC 18.9 H 4.0-11.0 RBC 5.55 4.60-6.20 [...] PRESENT Jul 17, 2024 07:[address] [facility] ALBUMIN Specimen Type: PLASMA No comment entered. Ordering Provider: SARAI GOLDEN Report Released Date/Time: Jul 16, 2024 12:12 PM Reporting Lab: [facility] [address] Performing Lab: [facility] [address] ALBUMIN 4.3 g/dL 3.5-5.0 Jul 17, 2024 07:[address] [facility] COMPREHENSIVE METABOLIC PANEL+MG Specimen Type: PLASMA No comment entered. Ordering Provider: SARAI GOLDEN Report Released Date/Time: Jul 16, 2024 04:52 PM Reporting Lab: [facility] [address] Performing Lab: [facility] [address] CREATININE 1.3 mg/dL H 0.7-1.2 UREA NITROGEN [...] >60 Jul 16, 2024 07:[address] [facility] LACTIC ACID Specimen Type: PLASMA No comment entered. Ordering Provider: SARAI GOLDEN Report Released Date/Time: Jul 16, 2024 12:12 PM Reporting Lab: [facility] [address] Performing Lab: [facility] [address] LACTIC ACID 0.9 mmol/L 0.5-2.2 Jul 16, 2024 02:[address] [facility] MRSA SURVL NARES DNA Specimen Type: NARES No comment entered. Ordering Provider: SARAI GOLDEN Report Released Date/Time: Jul 16, 2024 12:12 PM Reporting Lab: [facility] [address] Performing Lab: [facility] [address] MRSA SURVL NARES DNA NEGATIVE Negative Jul 16, 2024 02:[address] [facility] LACTIC ACID Specimen Type: PLASMA No comment entered. Ordering Provider: SARAI GOLDEN Report Released Date/Time: Jul 16, 2024 12:12 PM Reporting Lab: [facility] [address] Performing Lab: [facility] [address] LACTIC ACID 0.9 mmol/L 0.5-2.2 Jul 16, 2024 02:[address] [facility] CBC & DIFF Specimen Type: BLOOD Comment: Manual Differential Performed Ordering Provider: SARAI GOLDEN Report Released Date/Time: Jul 16, 2024 12:12 PM Reporting Lab: [facility] [address] Performing Lab: [facility] [address] WBC 19.7 H 4.0-11.0 RBC 5.39 4.60-6.20 [...] MORPHOLOGY PRESENT Jul 16, 2024 02:[address] [facility] COMPREHENSIVE METABOLIC PANEL+MG Specimen Type: PLASMA No comment entered. Ordering Provider: SARAI GOLDEN Report Released Date/Time: Jul 16, 2024 12:12 PM Reporting Lab: [facility] [address] Performing Lab: [facility] [address] CREATININE 2.0 mg/dL H 0.7-1.2 UREA NITROGEN [...] L >60 Jul 10, 2024 07:[address] [facility] PHOSPHORUS Specimen Type: PLASMA No comment entered. Ordering Provider: JUANCARLOS ECHOLS Report Released Date/Time: Jul 09, 2024 12:23 PM Reporting Lab: [facility] [address] Performing Lab: [facility] [address] PHOSPHORUS 3.0 mg/dL 2.3-4.3 Jul 10, 2024 07:[address] [facility] BASIC METABOLIC PANEL+MG Specimen Type: PLASMA No comment entered. Ordering Provider: JUANCARLOS ECHOLS S Report Released Date/Time: Jul 09, 2024 12:23 PM Reporting Lab: [facility] [address] Performing Lab: [facility] [address] CREATININE 0.7 mg/dL 0.7-1.2 UREA NITROGEN 27 [...] PM Reporting Lab: [facility] [address] Performing Lab: [facility] [address] WBC 18.8 H 4.0-11.0 RBC 5.08 4.60-6.20 [...] PM Reporting Lab: [facility] [address] Performing Lab: [facility] [address] WBC 15.3 H 4.0-11.0 RBC 4.91 4.60-6.20 [...] AM Reporting Lab: [facility] [address] Performing Lab: [facility] [address] URINE COLOR YELLOW SPECIFIC GRAVITY >1.050 H [...] PM Reporting Lab: [facility] [address] Performing Lab: [facility] [address] WBC 17.5 H 4.0-11.0 RBC 4.88 4.60-6.20 [...] PM Reporting Lab: [facility] [address] Performing Lab: [facility] [address] PHOSPHORUS 2.6 mg/dL 2.3-4.3 Jul 08, 2024 09:[address] [facility] BASIC METABOLIC PANEL+MG Specimen Type: PLASMA Comment: Specimen received in Lab at: [id number] Ordering Provider: JUANCARLOS ECHOLS Report Released Date/Time: Jul 07, 2024 04:49 PM Reporting Lab: [facility] [address] Performing Lab: [facility] [address] CREATININE 0.9 mg/dL 0.7-1.2 UREA NITROGEN 26 [...] PM Reporting Lab: [facility] [address] Performing Lab: [facility] [address] C DIFF TOX B GENE PCR NEGATIVE Negative Jul 07, 2024 07:[address] [facility] PHOSPHORUS Specimen Type: PLASMA No comment entered. Ordering Provider: JEVON ZAZUETA Report Released Date/Time: Jul 06, 2024 03:44 PM Reporting Lab: [facility] [address] Performing Lab: [facility] [address] PHOSPHORUS 3.1 mg/dL 2.3-4.3 Jul 07, 2024 07:[address] [facility] BASIC METABOLIC PANEL+MG Specimen Type: PLASMA No comment entered. Ordering Provider: JEVON ZAZUETA Report Released Date/Time: Jul 06, 2024 03:44 PM Reporting Lab: [facility] [address] Performing Lab: [facility] [address] CREATININE 0.9 mg/dL 0.7-1.2 UREA NITROGEN 20 [...] PM Reporting Lab: [facility] [address] Performing Lab: [facility] [address] WBC 21.2 H 4.0-11.0 RBC 5.09 4.60-6.20 [...] PM Reporting Lab: [facility] [address] Performing Lab: [facility] [address] WBC 18.0 H 4.0-11.0 RBC 4.83 4.60-6.20 [...] PM Reporting Lab: [facility] [address] Performing Lab: [facility] [address] PHOSPHORUS 3.6 mg/dL 2.3-4.3 Jul 06, 2024 07:[address] [facility] BASIC METABOLIC PANEL+MG Specimen Type: PLASMA No comment entered. Ordering Provider: JEVON ZAZUETA Report Released Date/Time: Jul 05, 2024 01:22 PM Reporting Lab: [facility] [address] Performing Lab: [facility] [address] CREATININE 0.7 mg/dL 0.7-1.2 UREA NITROGEN 12 [...] AM Reporting Lab: [facility] [address] Performing Lab: [facility] [address] MAGNESIUM 2.0 mg/dL 1.6-2.6 Jul 05, 2024 07:[address] [facility] PHOSPHORUS Specimen Type: PLASMA No comment entered. Ordering Provider: JUANCARLOS ECHOLS S Report Released Date/Time: Jul 04, 2024 09:39 AM Reporting Lab: [facility] [address] Performing Lab: [facility] [address] PHOSPHORUS 2.0 mg/dL L 2.3-4.3 Jul 05, 2024 07:[address] [facility] BASIC METABOLIC PANEL+MG Specimen Type: PLASMA No comment entered. Ordering Provider: JUANCARLOS ECHOLS S Report Released Date/Time: Jul 04, 2024 09:39 AM Reporting Lab: [facility] [address] Performing Lab: [facility] [address] CREATININE 0.7 mg/dL 0.7-1.2 UREA NITROGEN 12 [...] AM Reporting Lab: [facility] [address] Performing Lab: [facility] [address] WBC 18.3 H 4.0-11.0 RBC 4.49 L [...] PM Reporting Lab: [facility] [address] Performing Lab: [facility] [address] CREATININE 0.7 mg/dL 0.7-1.2 UREA NITROGEN 16 [...] PM Reporting Lab: [facility] [address] Performing Lab: [facility] [address] PHOSPHORUS 2.8 mg/dL 2.3-4.3 Jul 04, 2024 07:[address] [facility] CBC Specimen Type: BLOOD No comment entered. Ordering Provider: GABINO CAMERON Report Released Date/Time: Jul 03, 2024 06:31 PM Reporting Lab: [facility] [address] Performing Lab: [facility] [address] WBC 20.6 H 4.0-11.0 RBC 4.63 4.60-6.20 [...] PM Reporting Lab: [facility] [address] Performing Lab: [facility] [address] WBC 20.6 H 4.0-11.0 RBC 4.63 4.60-6.20 [...] PM Reporting Lab: [facility] [address] Performing Lab: [facility] [address] BNP 292 pg/mL H <99 Jul 03, 2024 10:[address] [facility] FINGERSTICK GLUCOSE Specimen Type: BLOOD Comment: Save Result Nurse Notified Ordering Provider: KATELYNN PERSON Report Released Date/Time: Jul 03, 2024 10:50 PM Reporting Lab: [facility] [address] Performing Lab: [facility] [address] FINGERSTICK GLUCOSE 126 mg/dL H 70-100 Jul 03, 2024 05:[address] [facility] FINGERSTICK GLUCOSE Specimen Type: BLOOD Comment: Save Result Nurse Notified Ordering Provider: KATELYNN PERSON Report Released Date/Time: Jul 03, 2024 05:46 PM Reporting Lab: [facility] [address] Performing Lab: [facility] [address] FINGERSTICK GLUCOSE 141 mg/dL H 70-100 Jul 03, 2024 02:[address] [facility] POC ABG/ELECTROLYTES Specimen Type: ARTERIAL BLOOD Comment: FIO2 = 97% Patient Temp: 36.0 C Sample Type = ARTERIAL Ordering Provider: MAZIN ARREDONDO Report Released Date/Time: Jul 03, 2024 01:48 PM Reporting Lab: [facility] [address] Performing Lab: [facility] [address] POC PH 7.387 7.35-7.45 POC PCO2 34.4 [...] PM Reporting Lab: [facility] [address] Performing Lab: [facility] [address] POC PH 7.280 L 7.35-7.45 POC PCO2 [...] PM Reporting Lab: [facility] [address] Performing Lab: [facility] [address] URINE COLOR YELLOW SPECIFIC GRAVITY 1.031 1.003-1.03 [...] PM Reporting Lab: [facility] [address] Performing Lab: [facility] [address] WBC 15.8 H 4.0-11.0 RBC 5.11 4.60-6.20 [...] PM Reporting Lab: [facility] [address] Performing Lab: [facility] [address] CREATININE 0.8 mg/dL 0.7-1.2 UREA NITROGEN 13 [...] PM Reporting Lab: [facility] [address] Performing Lab: [facility] [address] WBC 15.5 H 4.0-11.0 RBC 4.93 4.60-6.20 [...] PM Reporting Lab: [facility] [address] Performing Lab: [facility] [address] CREATININE 0.7 mg/dL 0.7-1.2 UREA NITROGEN 16 [...] PM Reporting Lab: [facility] [address] Performing Lab: [facility] [address] WBC 14.9 H 4.0-11.0 RBC 5.09 4.60-6.20 [...] PM Reporting Lab: [facility] [address] Performing Lab: [facility] [address] WBC 16.9 H 4.0-11.0 RBC 5.28 4.60-6.20 HGB 16.9 g/dL 13.5-17.9 HCT 50.4 41.0-54.0 MCV 95.5 fL 80.0-100.0 MCH 32.0 pg 27.0-33.0 MCHC 33.5 g/dL 32.0-37.5 PLT 223 150-400 MPV 10.9 fL 9.1-13.0 RDW 14.0 11.5-14.5 Jun 22, 2024 06:[address] [facility] COMPREHENSIVE METABOLIC PANEL+MG Specimen Type: PLASMA No comment entered. Ordering Provider: JEVON ZAZUETA Report Released Date/Time: Jun 22, 2024 05:51 PM Reporting Lab: [facility] [address] Performing Lab: [facility] [address] CREATININE 0.7 mg/dL 0.7-1.2 UREA NITROGEN 17 [...] >60 Jun 21, 2024 06:[address] [facility] URINALYSIS Specimen Type: URINE No comment entered. Ordering Provider: DELIA MARTINEZ Report Released Date/Time: Jun 21, 2024 05:45 PM Reporting Lab: [facility] [address] Performing Lab: [facility] [address] URINE COLOR YELLOW SPECIFIC GRAVITY 1.041 H [...] PM Reporting Lab: [facility] [address] Performing Lab: [facility] [address] POC CREATININE 1.1 mg/dL 0.6-1.3 Jun 21, 2024 05:[address] [facility] POC ABG/LACTATE Specimen Type: VENOUS BLOOD No comment entered. Ordering Provider: DELIA MARTINEZ Report Released Date/Time: Jun 21, 2024 06:07 PM Reporting Lab: [facility] [address] Performing Lab: [facility] [address] POC PH 7.470 H 7.31-7.41 POC PCO2 [...] PM Reporting Lab: [facility] [address] Performing Lab: [facility] [address] .INR 1.2 H 0.8-1.1 .PT 13.9 s H 9.4-12.5 Jun 21, 2024 05:[address] [facility] LIPASE Specimen Type: PLASMA No comment entered. Ordering Provider: DELIA MARTINEZ Report Released Date/Time: Jun 21, 2024 05:30 PM Reporting Lab: [facility] [address] Performing Lab: [facility] [address] LIPASE 32 U/L <60 Jun 21, 2024 05:[address] [facility] EXTRA GOLD GEL TUBE Specimen Type: SERUM No comment entered. Ordering Provider: DELIA MARTINEZ Report Released Date/Time: Jun 21, 2024 05:41 PM Reporting Lab: [facility] [address] Performing Lab: [facility] [address] EXTRA GOLD GEL TUBE RECEIVED Jun 21, 2024 05:[address] [facility] COMPREHENSIVE METABOLIC PANEL+MG Specimen Type: PLASMA No comment entered. Ordering Provider: DELIA MARTINEZ Report Released Date/Time: Jun 21, 2024 05:30 PM Reporting Lab: [facility] [address] Performing Lab: [facility] [address] CREATININE 0.9 mg/dL 0.7-1.2 UREA NITROGEN 29 [...] PM Reporting Lab: [facility] [address] Performing Lab: [facility] [address] WBC 21.3 H 4.0-11.0 RBC 5.48 4.60-6.20 [...] 19, 2024 11:29 PM 7 [place] [facility] Jul 19, 2024 05:39 PM 4 [place] [facility] Jul 19, 2024 05:23 PM 8 [place] [facility] Jul 19, 2024 12:50 PM 2 [place] [facility] Jul 19, 2024 11:03 AM 8 JAIME LOZANO [facility] Social History: Smoking Status (Most [...] this document. The data comes from all [place] facilities. Date Advance Directives Provider Source Mar [...] PM CHEST 1 VIEW: FLACA WEAVER YAMIL [id number] -1950 M Exm Date: JUL 18, 2024@18:15 Req Phys: LEISA GOLDEN Pat Loc: 3ES/07-18-2024@19:00 Img Loc: MAIN X-RAY Service: [place] [address] (Case [id number] COMPLETE) CHEST 1 VIEW (RAD Detailed) CPT:46984 Proc Modifiers : PORTABLE EXAM Reason for Study: SOB Clinical History: IS NOT under investigation for COVID-19 or is COVID-19 negative 73 yo with SOB Responsible provider name and phone number to notify for critical findings if other than user placing the order and pager listed below: User placing orders pager: [phone] LAST CREATININE 1.2 (07/17/24) Report Status: Verified Date Reported: JUL 18, 2024 Date Verified: JUL 18, 2024 Test Deck Supervisor E-Sig:/[email or web address]/CARLOS A CUNNINGHAM DO Report: EXAMINATION: CHEST 1 VIEW Reason for Study: SOB IS NOT under investigation for COVID-19 or is COVID-19 negative 73 yo with SOB Responsible provider name and phone number to notify for critical findings if other than user placing the order and pager listed below: User placing orders pager: [phone] LAST CREATININE 1.2 (07/17/24) SOB TECHNIQUE: Single [...] Interpreting Staff: CARLOS A CUNNINGHAM DO, RADIOLOGIST (Test Deck Supervisor) /TIFFANIEB CARLOS A CUNNINGHAM [facility] Jul 16, 2024 07:49 AM [facility] CT ABDOMEN/PELVIS: FLACA WEAVER YAMIL [id number] -1950 M Exm Date: JUL 16, 2024@07:49 Req Phys: JATINDER CABRERA Loc: 07-17-2024@09:02 Img Loc: OUTSOURCE CT Service: Unknown (Case [id number] COMPLETE) [facility] CT ABDOMEN/PELVIS (CT Detailed) CPT:45762 Reason for Study: outside study Clinical History: outside study Report Status: Electronically Filed Date Reported: JUL 17, 2024 Report: This is an outside Imaging study and/or report imported for continuity of patient care. This Imaging study and/or report was not reviewed or verified by a [place] Radiologist. Impression: This is an outside Imaging study and/or report imported for continuity of patient care. This Imaging study and/or report was not reviewed or verified by a [place] Radiologist. Primary Diagnostic Code: VERIFIED BY: / *ELECTRONICALLY FILED* [facility] Jul 13, 2024 09:41 AM [facility] CT ABDOMEN/PELVIS: FLACA WEAVER [id number] -1950 M Exm Date: JUL 13, 2024@09:41 Req Phys: JATINDER CABRERA Loc: 07-17-2024@09:08 Img Loc: OUTSOURCE CT Service: Unknown (Case [id number] COMPLETE) [facility]PELV[facility] (CT Detailed) CPT:64362 Reason for Study: outside study Clinical History: outside study Report Status: Electronically Filed Date Reported: JUL 17, 2024 Report: This is an outside Imaging study and/or report imported for continuity of patient care. This Imaging study and/or report was not reviewed or verified by a [place] Radiologist. Impression: This is an outside Imaging study and/or report imported for continuity of patient care. This Imaging study and/or report was not reviewed or verified by a [place] Radiologist. Primary Diagnostic Code: VERIFIED BY: / *ELECTRONICALLY FILED* [facility] Jul 08, 2024 10:09 AM CHEST 2 VIEWS PA AND LAT: FLACA WEAVER [id number] -1950 M Exm Date: JUL 08, 2024@10:09 Req Phys: KATELYNN PERSON Pat Loc: 2KG/07-08-2024@11:49 Img Loc: MAIN X-RAY Service: [place] [address] (Case 24 COMPLETE) CHEST 2 VIEWS PA AND LAT (RAD Detailed) CPT:35256 Reason for Study: Uptrending WBC, POD 5 [...] 08, 2024 Date Verified: JUL 08, 2024 Test Deck Supervisor E-Sig: Report: CHEST 2 VIEWS PA [...] cardiopulmonary disease. READING PHYSICIAN: Sarbjit Vaughn M.D. -[id number] 07/08/2024 12:46 [facility] National Teleradiology Program [phone] (For Medical Practitioner Use Only) Attention Patients / Veterans: If you have questions or concerns about these test results, please contact your ordering provider or primary care team. Primary Interpreting Staff: RADIOLOGY,OUTSIDE SERVICE, Staff Physician / RADIOLOGY,OUTSIDE SERVICE [facility] Jul 08, 2024 10:[address] (AP) ABDOMEN/PELVIS W CONTRAST: FLACA WEAVER [id number] -1950 M Exm Date: JUL 08, 2024@10:00 Req Phys: KATELYNN PERSON [facility] Loc: 2KG/07-08-2024@12:07 Img Loc: CT IMAGING Service: [facility] [place] [address] (Case 22 COMPLETE) CT (AP) ABDOMEN/PELVIS W CONTRAST(CT Detailed) CPT:41052 Contrast Media : Non-ionic Iodinated Reason for [...] .CREAT EGFR(CKD-E >90 Ref: >=60 Allergies: ([place] only) TERAZOSIN (Mar 13, 2015) Report Status: Verified Date Reported: JUL 08, 2024 Date Verified: JUL 08, 2024 Test Deck Supervisor E-Sig: Report: CT (AP) ABDOMEN/PELVIS W [...] as noted above READING PHYSICIAN: Celestino Blanc -[phone] 07/08/2024 13:04 EST [facility] National Teleradiology Program [phone] (For Medical Practitioner Use Only) Attention Patients / Veterans: If you have questions or concerns about these test results, please contact your ordering provider or primary care team. Primary Interpreting Staff: RADIOLOGY,OUTSIDE SERVICE, Staff Physician / RADIOLOGY,OUTSIDE SERVICE [facility] Jun 22, 2024 11:49 AM ABSCESS DRAIN PLACEMENT PERITONEAL (P): FLACA WEAVER [id number] -1950 M Exm Date: JUN 22, 2024@11:49 Req Phys: ADINAANGELA Maeve Pat Loc: [facility]/06-22-2024@17:14 Img Loc: INTERVENTIONAL RADIOLOGY Service: [place] [address] (Case [id number] COMPLETE) IR PERITONEAL/RETROPERITONEAL PER(ANI Detailed) CPT:23843 Reason for Study: diverticulitis with abscess (Case 3570 COMPLETE) IR MOD SEDATION 10-22 MIN (ANI Detailed) CPT:59759 Clinical History: IS NOT under investigation for COVID-19 or is COVID-19 negative 73 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 please place abscess drain. Contact number for responsible provider who can be reached for any questions or notifications of critical findings: [phone] n/a LAST CREATININE 0.9 (06/21/24) Report Status: Verified Date Reported: JUN 22, 2024 Date Verified: JUN 22, 2024 Test Deck Supervisor E-Sig:/ES/LISA PENDLETON MD Report: PROCEDURES: Placement [...] anesthesia. Using real-time CT fluoroscopy, a 5 [employer] centesis catheter was advanced into the collection in the left pelvis. A wire was coiled in the collection. The tract into the collection was dilated to accommodate the 12 Stateless locking pigtail drainage catheter. There was return [...] Primary Interpreting Staff: LISA PENDLETON MD, RADIOLOGIST (Test Deck Supervisor) /JRT LISA PENDLETON [facility] Jun 22, 2024 11:[address] NEEDLE PLACEMENT (P): MEGFLACA LOBO [id number] -1950 M Exm Date: JUN 22, 2024@11:48 Req Phys: ANGELA HOLDEN [facility] Loc: [facility]/06-22-2024@17:14 [facility] [place] IM[place]ING Service: [place] [address] (Case 3568 COMPLETE) CT SCAN FOR NEEDLE PLACEMENT (CT Detailed) CPT:21237 Reason for Study: l pelvic abscess drain Clinical History: Report Status: Verified Date Reported: JUN 22, 2024 Date Verified: JUN 22, 2024 Test Deck Supervisor E-Sig:/ES/LISA PENDLETON MD Report: PROCEDURES: Placement [...] anesthesia. Using real-time CT fluoroscopy, a 5 [employer] catheter was advanced into the collection in the left pelvis. A wire was coiled in the collection. The tract into the collection was dilated to accommodate the 12 Stateless locking pigtail drainage catheter. There was return [...] Primary Interpreting Staff: LISA PENDLETON MD, RADIOLOGIST (Test Deck Supervisor) /JRT LISA PENDLETON [facility] Jun 21, 2024 06:[address] (AP) ABDOMEN/PELVIS (P): FLACA WEAVER [id number] -1950 M Ex Date: JUN 21, 2024@18:09 Req Phys: DELIA MARTINEZ Loc: [facility] EM[facility]Y [facility] WALK-IN (Re Img Loc: CT IMAGING Service: [place] [address] (Case [id number] COMPLETE) CT (AP) ABDOMEN/PELVIS W CONTRAST(CT Detailed) CPT:17029 Contrast Media : Non-ionic Iodinated Reason for [...] .CREAT EGFR(CKD-E >90 Ref: >=60 Allergies: ([place] only) TERAZOSIN (Mar 13, 2015) Defer [...] 21, 2024 Date Verified: JUN 21, 2024 Test Deck Supervisor E-Sig:/ALEXI/CARLOS A CUNNINGHAM DO Report: EXAMINATION: [...] Interpreting Staff: CARLOS A CUNNINGHAM DO, RADIOLOGIST (Test Deck Supervisor) /CARLOS A ROWELL [facility] Pathology Reports: [...] Lab: [facility] [CLIA# [id number]] [place] [address] Accession [UID]: [id number] [[id number]] Received: Jul 16, 2024@14:41 Collection sample: BLOOD Collection date: Jul 16, 2024 14:07 Provider: LEISA GOLDEN Comment on specimen: R AC, RECEIVED 2 BLOOD CULTURE BOTTLES Test(s) ordered: CULTURE & SUSCEPTIBILITY...... completed: Jul 22, 2024 * BACTERIOLOGY FINAL REPORT => Jul 22, 2024 13:39 TECH CODE: [id number] CULTURE RESULTS: NO GROWTH 5 DAYS Bacteriology Remark(s): THIS REPORT IS FINAL =--=--=--=--=--=--=--=--=--= --=--=--=--=--=--=--=--=--=- -=--=--=--=--=--=--=-- Performing Laboratory: Bacteriology Report Performed By: [facility] [CLIA# [id number]] [place] [address] [facility] Jul 16, 2024 01:54 PM LR MICROBIOLOGY RE PORT: Reporting Lab: [facility] [IA# [id number]] [place] [address] Accession [UID]: [id number] [[id number]] Received: Jul 16, 2024@14:41 Collection sample: BLOOD Collection date: Jul 16, 2024 13:54 Provider: LEISA GOLDEN Comment on specimen: [place] AC, RECEIVED 2 BLOOD CULTURE BOTTLES Test(s) ordered: CULTURE & SUSCEPTIBILITY...... completed: Jul 22, 2024 * BACTERIOLOGY FINAL REPORT => Jul 22, 2024 13:39 TECH CODE: [id number] CULTURE RESULTS: NO GROWTH 5 DAYS Bacteriology Remark(s): THIS REPORT IS FINAL =--=--=--=--=--=--=--=--=--= --=--=--=--=--=--=--=--=--=- -=--=--=--=--=--=--=-- Performing Laboratory: Bacteriology Report Performed By: [facility] [IA# [id number]] [place] [address] [facility] Jul 03, 2024 05:59 AM LR SURGICAL PATHOL OGY REPORT: LOCAL TITLE: LR SURGICAL PATHOLOGY REPORT STANDARD TITLE: PATHOLOGY REPORT DATE OF NOTE: JUL 06, 2024@10:40:48 ENTRY DATE: JUL 06, 2024@10:40:48 AUTHOR: EDUARDO PALOMARES EXP COSIGNER: URGENCY: STATUS: COMPLETED $APHDR Reporting Lab: [facility] [IA# [id number]] [place] [address] - - - - - - - [...] - PATHOLOGY REPORT Accession No. [id number] - - - - - - - [...] - PATHOLOGY REPORT Accession No. [id number] - - - - - - - [...] Second circumferential surgical margin, en face; E-F: Tool Grinder diverticula; G: Tool Grinder section of mesentery; H: Random veterans service representative section of additional adipose tissue [...] By: [facility] [CLIA# [id number]] [place] [address] $FTR - - - - - - [...] - - FLACA WEAVER STANDARD FORM 515 ID:[id number] SEX:M :1950 AGE: 73 LOC:49583 ADM:Jun DX:DIVERTICULITIS PCP: Jatinder Cabrera /alexi/ EDUARDO PALOMARES MD STAFF PATHOLOGIST Signed: 07/06/2024 10:[address] [facility] Jun 22, 2024 01:15 PM LR MICROBIOLOGY RE PORT: Reporting Lab: [facility] [CLIA# [id number]] [place] [address] Accession [UID]: [id number] [[id number]] Received: Jun 22, 2024@13:38 Collection sample: FLUID Collection date: Jun 22, 2024 13:15 Provider: ANGELA HOLDEN Comment on specimen: LLQ ABSCESS, RECEIVED IN ANAEROBIC TRANSPORT VIAL Test(s) ordered: GRAM STAIN.................... completed: Jun 22, 2024 15:03 CULTURE & SUSCEPTIBILITY...... completed: Jun 25, 2024 * BACTERIOLOGY FINAL REPORT => Jun 25, 2024 10:56 TECH CODE: [id number] GRAM STAIN: DIRECT SMEAR of specimen before [...] By: [facility] [CLIA# [id number]] [place] [address] [facility] Jun 22, 2024 01:15 PM LR MICROBIOLOGY RE PORT: Reporting Lab: [facility] [CLIA# [id number]] [place] [address] Accession [UID]: [id number] [[id number]] Received: Jun 22, 2024@13:38 Collection sample: FLUID Collection date: Jun 22, 2024 13:15 Provider: ANGELA HOLDEN Comment on specimen: LLQ ABSCESS, RECEIVED IN ANAEROBIC TRANSPORT VIAL Test(s) ordered: ANAEROBIC CULTURE............. completed: Jun 28, 2024 * BACTERIOLOGY FINAL REPORT => Jun 28, 2024 10:08 TECH CODE: [id number] CULTURE RESULTS: HEAVY GROWTH MIXED ANAEROBES Comment: [...] By: [facility] [CLIA# [id number]] [place] [address] [facility] Jun 21, 2024 06:12 PM LR MICROBIOLOGY RE PORT: Reporting Lab: [facility] [CLIA# [id number]] [place] [address] Accession [UID]: [id number] [[id number]] Received: Jun 21, 2024@18:12 Collection sample: BLOOD [...] By: [facility] [CLIA# [id number]] [place] [address] [facility] Jun 21, 2024 06:11 PM LR MICROBIOLOGY RE PORT: Reporting Lab: [facility] [CLIA# [id number]] [place] [address] Accession [UID]: [id number] [[id number]] Received: Jun 21, 2024@18:11 Collection sample: BLOOD [...] By: [facility] [CLIA# [id number]] [place] [address] [facility]
--- OUTSIDE RECORDS SUMMARY | 2024-08-01 08:03 | XMS_ITS ---
[place] DAILY HOSPITALIZATION DATA [facility] HCS Encounter Summary Created on: August 01, 2024 MEG FLACADARCI LOBO : 1950 Sex: Male Author Name [facility] [place] [facility] [place] Address [address] [place] [address] Care Team Providers Care Correspondence Transcriber Name Role Phone JATINDER CABRERA Primary Care [...] PART A Sep 29, 2016 PART A [id number] [phone] JUDY WEAVER PATIENT Selected Encounter This section includes the information on record at [place] for the Encounter. Date/Time Encounter Type Encounter Description Reason Pro vider Source Jul 19, 2024 07:16 PM Inpatient Visit DAILY HOSPITALIZATION DATA [facility] [...] 20, 2024 06:50 PM Reporting Lab: [facility] [address] Performing Lab: [facility] [address] CREATININE 0.8 mg/dL 0.7-1.2 UREA NITROGEN 31 [...] 20, 2024 06:50 PM Reporting Lab: [facility] [address] Performing Lab: [facility] [address] WBC 16.0 H 4.0-11.0 RBC 5.16 4.60-6.20 [...] 20, 2024 08:22 AM Reporting Lab: [facility] [address] Performing Lab: [facility] [address] SODIUM,URINE RANDOM <20 mmol/L Jul 20, 2024 01:00 PM [facility] OSMOLALITY,URINE Specimen Type: URINE No comment entered. Ordering Provider: SARAI GOLDEN Report Released Date/Time: Jul 20, 2024 08:22 AM Reporting Lab: [facility] [address] Performing Lab: [facility] [address] OSMOLALITY,URIN E 648 mosm/kg 500-800 Jul 20, 2024 06:45 AM [facility] BASIC METABOLIC PANEL+MG Specimen Type: PLASMA No comment entered. Ordering Provider: SARAI GOLDEN Report Released Date/Time: Jul 19, 2024 06:13 PM Reporting Lab: [facility] [address] Performing Lab: [facility] [address] CREATININE 0.8 mg/dL 0.7-1.2 UREA NITROGEN 36 [...] 19, 2024 06:13 PM Reporting Lab: [facility] [address] Performing Lab: [facility] [address] WBC 16.6 H 4.0-11.0 RBC 4.96 4.60-6.20 [...] 20, 2024 09:47 AM Reporting Lab: [facility] [address] Performing Lab: [facility] [address] OSMOLALITY,SERU M 266 mosm/kg L 276-305 Jul 19, 2024 08:57 AM [facility] BASIC METABOLIC PANEL+MG Specimen Type: PLASMA No comment entered. Ordering Provider: SARAI GOLDEN Report Released Date/Time: Jul 18, 2024 10:24 PM Reporting Lab: [facility] [address] Performing Lab: [facility] [address] CREATININE 1.0 mg/dL 0.7-1.2 UREA NITROGEN 40 [...] 18, 2024 10:24 PM Reporting Lab: [facility] [address] Performing Lab: [facility] [address] WBC 17.3 H 4.0-11.0 RBC 4.83 4.60-6.20 [...] 17, 2024 01:54 PM Reporting Lab: [facility] [address] Performing Lab: [facility] [address] PHOSPHORUS 2.9 mg/dL 2.3-4.3 Jul 17, 2024 06:55 PM [facility] BASIC METABOLIC PANEL+MG Specimen Type: PLASMA No comment entered. Ordering Provider: SARAI GOLDEN Report Released Date/Time: Jul 17, 2024 01:54 PM Reporting Lab: [facility] [address] Performing Lab: [facility] [address] CREATININE 1.2 mg/dL 0.7-1.2 UREA NITROGEN 62 [...] 16, 2024 04:52 PM Reporting Lab: [facility] [address] Performing Lab: [facility] [address] WBC 18.9 H 4.0-11.0 RBC 5.55 4.60-6.20 [...] 16, 2024 12:12 PM Reporting Lab: [facility] [address] Performing Lab: [facility] [address] ALBUMIN 4.3 g/dL 3.5-5.0 Jul 17, 2024 07:00 AM [facility] COMPREHENSIVE METABOLIC PANEL+MG Specimen Type: PLASMA No comment entered. Ordering Provider: SARAI GOLDEN Report Released Date/Time: Jul 16, 2024 04:52 PM Reporting Lab: [facility] [address] Performing Lab: [facility] [address] CREATININE 1.3 mg/dL H 0.7-1.2 UREA NITROGEN [...] 16, 2024 12:12 PM Reporting Lab: [facility] [address] Performing Lab: [facility] [address] LACTIC ACID 0.9 mmol/L 0.5-2.2 Jul 16, 2024 02:14 PM [facility] MRSA SURVL NARES DNA Specimen Type: NARES No comment entered. Ordering Provider: SARAI GOLDEN Report Released Date/Time: Jul 16, 2024 12:12 PM Reporting Lab: [facility] [address] Performing Lab: [facility] [address] MRSA SURVL NARES DNA NEGATIVE Negative Jul 16, 2024 02:10 PM [facility] LACTIC ACID Specimen Type: PLASMA No comment entered. Ordering Provider: SARAI GOLDEN Report Released Date/Time: Jul 16, 2024 12:12 PM Reporting Lab: [facility] [address] Performing Lab: [facility] [address] LACTIC ACID 0.9 mmol/L 0.5-2.2 Jul 16, 2024 02:08 PM [facility] COMPREHENSIVE METABOLIC PANEL+MG Specimen Type: PLASMA No comment entered. Ordering Provider: SARAI GOLDEN Report Released Date/Time: Jul 16, 2024 12:12 PM Reporting Lab: [facility] [address] Performing Lab: [facility] [address] CREATININE 2.0 mg/dL H 0.7-1.2 UREA NITROGEN [...] 16, 2024 12:12 PM Reporting Lab: [facility] [address] Performing Lab: [facility] [address] WBC 19.7 H 4.0-11.0 RBC 5.39 4.60-6.20 [...] 12:23 PM Reporting Lab: [facility] [address] Performing Lab: [facility] [address] PHOSPHORUS 3.0 mg/dL 2.3-4.3 Jul 10, 2024 07:16 AM [facility] BASIC METABOLIC PANEL+MG Specimen Type: PLASMA No comment entered. Ordering Provider: JUANCARLOS ECHOLS S Report Released Date/Time: Jul 09, 2024 12:23 PM Reporting Lab: [facility] [address] Performing Lab: [facility] [address] CREATININE 0.7 mg/dL 0.7-1.2 UREA NITROGEN 27 [...] 12:23 PM Reporting Lab: [facility] [address] Performing Lab: [facility] [address] WBC 18.8 H 4.0-11.0 RBC 5.08 4.60-6.20 [...] 06:18 PM Reporting Lab: [facility] [address] Performing Lab: [facility] [address] WBC 15.3 H 4.0-11.0 RBC 4.91 4.60-6.20 [...] 08:41 AM Reporting Lab: [facility] [address] Performing Lab: [facility] [address] URINE COLOR YELLOW SPECIFIC GRAVITY >1.050 H [...] 04:49 PM Reporting Lab: [facility] [address] Performing Lab: [facility] [address] WBC 17.5 H 4.0-11.0 RBC 4.88 4.60-6.20 [...] 04:49 PM Reporting Lab: [facility] [address] Performing Lab: [facility] [address] PHOSPHORUS 2.6 mg/dL 2.3-4.3 Jul 08, 2024 09:54 AM [facility] BASIC METABOLIC PANEL+MG Specimen Type: PLASMA Comment: Specimen received in Lab at: [id number] Ordering Provider: JUANCARLOS ECHOLS Report Released Date/Time: Jul 07, 2024 04:49 PM Reporting Lab: [facility] [address] Performing Lab: [facility] [address] CREATININE 0.9 mg/dL 0.7-1.2 UREA NITROGEN 26 [...] Type: FECES No comment entered. Ordering Provider: JEOVN ZAZUETA Report Released Date/Time: Jul 07, 2024 12:26 PM Reporting Lab: [facility] [address] Performing Lab: [facility] [address] C DIFF TOX B GENE PCR NEGATIVE Negative Jul 07, 2024 07:41 AM [facility] PHOSPHORUS Specimen Type: PLASMA No comment entered. Ordering Provider: JEVON ZAZUETA Report Released Date/Time: Jul 06, 2024 03:44 PM Reporting Lab: [facility] [address] Performing Lab: [facility] [address] PHOSPHORUS 3.1 mg/dL 2.3-4.3 Jul 07, 2024 07:41 AM [facility] BASIC METABOLIC PANEL+MG Specimen Type: PLASMA No comment entered. Ordering Provider: JEVON ZAZUETA Report Released Date/Time: Jul 06, 2024 03:44 PM Reporting Lab: [facility] [address] Performing Lab: [facility] [address] CREATININE 0.9 mg/dL 0.7-1.2 UREA NITROGEN 20 [...] 03:44 PM Reporting Lab: [facility] [address] Performing Lab: [facility] [address] WBC 21.2 H 4.0-11.0 RBC 5.09 4.60-6.20 [...] 01:22 PM Reporting Lab: [facility] [address] Performing Lab: [facility] [address] WBC 18.0 H 4.0-11.0 RBC 4.83 4.60-6.20 [...] 01:22 PM Reporting Lab: [facility] [address] Performing Lab: [facility] [address] PHOSPHORUS 3.6 mg/dL 2.3-4.3 Jul 06, 2024 07:21 AM [facility] BASIC METABOLIC PANEL+MG Specimen Type: PLASMA No comment entered. Ordering Provider: JEVON ZAZUETA Report Released Date/Time: Jul 05, 2024 01:22 PM Reporting Lab: [facility] [address] Performing Lab: [facility] [address] CREATININE 0.7 mg/dL 0.7-1.2 UREA NITROGEN 12 [...] 09:39 AM Reporting Lab: [facility] [address] Performing Lab: [facility] [address] MAGNESIUM 2.0 mg/dL 1.6-2.6 Jul 05, 2024 07:17 AM [facility] PHOSPHORUS Specimen Type: PLASMA No comment entered. Ordering Provider: JUANCARLOS ECHOLS S Report Released Date/Time: Jul 04, 2024 09:39 AM Reporting Lab: [facility] [address] Performing Lab: [facility] [address] PHOSPHORUS 2.0 mg/dL L 2.3-4.3 Jul 05, 2024 07:17 AM [facility] BASIC METABOLIC PANEL+MG Specimen Type: PLASMA No comment entered. Ordering Provider: JUANCARLOS ECHOLS S Report Released Date/Time: Jul 04, 2024 09:39 AM Reporting Lab: [facility] [address] Performing Lab: [facility] [address] CREATININE 0.7 mg/dL 0.7-1.2 UREA NITROGEN 12 [...] 09:39 AM Reporting Lab: [facility] [address] Performing Lab: [facility] [address] WBC 18.3 H 4.0-11.0 RBC 4.49 L [...] 06:31 PM Reporting Lab: [facility] [address] Performing Lab: [facility] [address] CREATININE 0.7 mg/dL 0.7-1.2 UREA NITROGEN 16 [...] 06:31 PM Reporting Lab: [facility] [address] Performing Lab: [facility] [address] PHOSPHORUS 2.8 mg/dL 2.3-4.3 Jul 04, 2024 07:16 AM [facility] CBC Specimen Type: BLOOD No comment entered. Ordering Provider: GABINO CAMERON Report Released Date/Time: Jul 03, 2024 06:31 PM Reporting Lab: [facility] [address] Performing Lab: [facility] [address] WBC 20.6 H 4.0-11.0 RBC 4.63 4.60-6.20 [...] 06:31 PM Reporting Lab: [facility] [address] Performing Lab: [facility] [address] WBC 20.6 H 4.0-11.0 RBC 4.63 4.60-6.20 [...] 06:31 PM Reporting Lab: [facility] [address] Performing Lab: [facility] [address] BNP 292 pg/mL H <99 Jul 03, 2024 10:32 PM [facility] FINGERSTICK GLUCOSE Specimen Type: BLOOD Comment: Save Result Nurse Notified Ordering Provider: KATELYNN PERSON Report Released Date/Time: Jul 03, 2024 10:50 PM Reporting Lab: [facility] [address] Performing Lab: [facility] [address] FINGERSTICK GLUCOSE 126 mg/dL H 70-100 Jul 03, 2024 05:33 PM [facility] FINGERSTICK GLUCOSE Specimen Type: BLOOD Comment: Save Result Nurse Notified Ordering Provider: KATELYNN PERSON Report Released Date/Time: Jul 03, 2024 05:46 PM Reporting Lab: [facility] [address] Performing Lab: [facility] [address] FINGERSTICK GLUCOSE 141 mg/dL H 70-100 Jul 03, 2024 02:31 PM [facility] POC ABG/ELECTROLYTES Specimen Type: ARTERIAL BLOOD Comment: FIO2 = 97% Patient Temp: 36.0 C Sample Type = ARTERIAL Ordering Provider: MAZIN ARREDONDO Report Released Date/Time: Jul 03, 2024 01:48 PM Reporting Lab: [facility] [address] Performing Lab: [facility] [address] POC PH 7.387 7.35-7.45 POC PCO2 34.4 [...] 01:48 PM Reporting Lab: [facility] [address] Performing Lab: [facility] [address] POC PH 7.280 L 7.35-7.45 POC PCO2 [...] 04:01 PM Reporting Lab: [facility] [address] Performing Lab: [facility] [address] URINE COLOR YELLOW SPECIFIC GRAVITY 1.031 1.003-1.03 [...] 03:59 PM Reporting Lab: [facility] [address] Performing Lab: [facility] [address] WBC 15.8 H 4.0-11.0 RBC 5.11 4.60-6.20 [...] 06:07 PM Reporting Lab: [facility] [address] Performing Lab: [facility] [address] CREATININE 0.8 mg/dL 0.7-1.2 UREA NITROGEN 13 [...] 06:07 PM Reporting Lab: [facility] [address] Performing Lab: [facility] [address] WBC 15.5 H 4.0-11.0 RBC 4.93 4.60-6.20 [...] 05:51 PM Reporting Lab: [facility] [address] Performing Lab: [facility] [address] CREATININE 0.7 mg/dL 0.7-1.2 UREA NITROGEN 16 [...] 05:51 PM Reporting Lab: [facility] [address] Performing Lab: [facility] [address] WBC 14.9 H 4.0-11.0 RBC 5.09 4.60-6.20 [...] 05:51 PM Reporting Lab: [facility] [address] Performing Lab: [facility] [address] WBC 16.9 H 4.0-11.0 RBC 5.28 4.60-6.20 [...] 05:51 PM Reporting Lab: [facility] [address] Performing Lab: [facility] [address] CREATININE 0.7 mg/dL 0.7-1.2 UREA NITROGEN 17 [...] 05:45 PM Reporting Lab: [facility] [address] Performing Lab: [facility] [address] URINE COLOR YELLOW SPECIFIC GRAVITY 1.041 H [...] 06:07 PM Reporting Lab: [facility] [address] Performing Lab: [facility] [address] POC CREATININE 1.1 mg/dL 0.6-1.3 Jun 21, 2024 05:30 PM [facility] POC ABG/LACTATE Specimen Type: VENOUS BLOOD No comment entered. Ordering Provider: DELIA MARTINEZ Report Released Date/Time: Jun 21, 2024 06:07 PM Reporting Lab: [facility] [address] Performing Lab: [facility] [address] POC PH 7.470 H 7.31-7.41 POC PCO2 [...] 05:30 PM Reporting Lab: [facility] [address] Performing Lab: [facility] [address] .INR 1.2 H 0.8-1.1 .PT 13.9 s H 9.4-12.5 Jun 21, 2024 05:24 PM [facility] LIPASE Specimen Type: PLASMA No comment entered. Ordering Provider: DELIA MARTINEZ Report Released Date/Time: Jun 21, 2024 05:30 PM Reporting Lab: [facility] [address] Performing Lab: [facility] [address] LIPASE 32 U/L <60 Jun 21, 2024 05:24 PM [facility] EXTRA GOLD GEL TUBE Specimen Type: SERUM No comment entered. Ordering Provider: DELIA MARTINEZ Report Released Date/Time: Jun 21, 2024 05:41 PM Reporting Lab: [facility] [address] Performing Lab: [facility] [address] EXTRA GOLD GEL TUBE RECEIVED Jun 21, 2024 05:24 PM [facility] COMPREHENSIVE METABOLIC PANEL+MG Specimen Type: PLASMA No comment entered. Ordering Provider: DELIA MARTINEZ Report Released Date/Time: Jun 21, 2024 05:30 PM Reporting Lab: [facility] [address] Performing Lab: [facility] [address] CREATININE 0.9 mg/dL 0.7-1.2 UREA NITROGEN 29 [...] 05:30 PM Reporting Lab: [facility] [address] Performing Lab: [facility] [address] WBC 21.3 H 4.0-11.0 RBC 5.48 4.60-6.20 [...] 19, 2024 11:29 PM 7 [place] OLIS [facility] Jul 19, 2024 05:39 PM 4 [place] [facility] Jul 19, 2024 05:23 PM 8 [place] [facility] Jul 19, 2024 12:50 PM 2 [place] [facility] Jul 19, 2024 11:03 AM 8 JAIME LOZANO [facility] Social History: Smoking Status (Most [...] PM CHEST 1 VIEW: FLACA WEAVER YAMIL [id number] -1950 M Exm Date: JUL 18, 2024@18:15 Req Phys: LEISA GOLDEN Pat Loc: 3ES/07-18-2024@19:00 Img Loc: MAIN X-RAY Service: [facility] [place] [address] (Case [id number] COMPLETE) CHEST 1 VIEW (RAD Detailed) CPT:12893 Proc Modifiers : PORTABLE EXAM Reason for Study: SOB Clinical History: IS NOT under investigation for COVID-19 or is COVID-19 negative 73 yo with SOB Responsible provider name and phone number to notify for critical findings if other than user placing the order and pager listed below: User placing orders pager: [phone] LAST CREATININE 1.2 (07/17/24) Report Status: Verified Date Reported: JUL 18, 2024 Date Verified: JUL 18, 2024 Back Grinder E-Sig:/ALEXI/CARLOS A CUNNINGHAM DO Report: EXAMINATION: CHEST 1 VIEW Reason for Study: SOB IS NOT under investigation for COVID-19 or is COVID-19 negative 73 yo with SOB Responsible provider name and phone number to notify for critical findings if other than user placing the order and pager listed below: User placing orders pager: [phone] LAST CREATININE 1.2 (07/17/24) SOB TECHNIQUE: Single [...] Staff: CARLOS A CUNNINGHAM DO, RADIOLOGIST (Back Grinder) /TIFFANIEB CARLOS A CUNNINGHAM [facility] Jul 16, 2024 07:49 AM [facility] ABDOMEN/PELVIS: FLACA WEAVER YAMIL [id number] -1950 M Exm Date: JUL 16, 2024@07:49 Req Phys: JATINDER CABRERA Loc: 07-17-2024@09:02 Img Loc: OUTSOURCE CT Service: Unknown (Case [id number] COMPLETE) [facility] CT ABDOMEN/PELVIS (CT Detailed) CPT:12245 Reason for Study: outside study Clinical History: [...] [facility] Jul 13, 2024 09:41 [address] [facility] ABDOMEN/PELVIS: FLACA WEAVER [id number] -1950 M Exm Date: JUL 13, 2024@09:41 Req Phys: JATINDER CABRERA Loc: 07-17-2024@09:08 Img Loc: OUTSOURCE CT Service: Unknown (Case [id number] COMPLETE) [facility] ABDOMEN/PELVIS (CT Detailed) CPT:72541 Reason for Study: outside study Clinical History: [...] 2 VIEWS PA AND LAT: FLACA WEAVER [id number] -1950 M Exm Date: JUL 08, 2024@10:09 Req Phys: KATELYNN PERSON Pat Loc: 2KG/07-08-2024@11:49 Img Loc: MAIN X-RAY Service: [facility] [place] [address] (Case 24 COMPLETE) CHEST 2 VIEWS PA AND LAT (RAD Detailed) CPT:36916 Reason for Study: Uptrending WBC, POD 5 [...] 2024 Date Verified: JUL 08, 2024 Back Grinder E-Sig: Report: CHEST 2 VIEWS PA [...] cardiopulmonary disease. READING PHYSICIAN: Sarbjit Vaughn M.D. -[id number] 07/08/2024 12:46 [facility] National Teleradiology Program [phone] (For Medical Practitioner Use Only) Attention Patients / Veterans: If you have questions or concerns about these test results, please contact your ordering provider or primary care team. Primary Interpreting Staff: RADIOLOGY,OUTSIDE SERVICE, Staff Physician / RADIOLOGY,OUTSIDE SERVICE [facility] Jul 08, 2024 10:[address] (AP) ABDOMEN/PELVIS W CONTRAST: FLACA WEAVER [id number] -1950 M Exm Date: JUL 08, 2024@10:00 Req Phys: KATELYNN PERSON [facility] Loc: 2KG/07-08-2024@12:07 Img Loc: CT IMAGING Service: [place] [place] [address] (Case 22 COMPLETE) CT (AP) ABDOMEN/PELVIS W CONTRAST(CT Detailed) CPT:45592 Contrast Media : Non-ionic Iodinated Reason for [...] PLASMA .CREAT EGFR(CKD-E >90 Ref: >=60 Allergies: ([place] only) TERAZOSIN (Mar 13, 2015) Report Status: Verified Date Reported: JUL 08, 2024 Date Verified: JUL 08, 2024 Back Grinder E-Sig: Report: CT (AP) ABDOMEN/PELVIS W [...] as noted above READING PHYSICIAN: Celestino Blanc -[phone] 07/08/2024 13:04 EST [facility] National Teleradiology Program [phone] (For Medical Practitioner Use Only) Attention Patients / Veterans: If you have questions or concerns about these test results, please contact your ordering provider or primary care team. Primary Interpreting Staff: RADIOLOGY,OUTSIDE SERVICE, Staff Physician / RADIOLOGY,OUTSIDE SERVICE [facility] Jun 22, 2024 11:49 AM ABSCESS DRAIN PLACEMENT PERITONEAL (P): FLACA WEAVER [id number] -1950 M Exm Date: JUN 22, 2024@11:49 Req Phys: ADINAANGELA Maeve Pat Loc: [facility]/06-22-2024@17:14 Img Loc: INTERVENTIONAL RADIOLOGY Service: [facility] [place] [address] (Case [id number] COMPLETE) IR PERITONEAL/RETROPERITONEAL PER(ANI Detailed) CPT:82136 Reason for Study: diverticulitis with abscess (Case [id number] COMPLETE) IR MOD SEDATION 10-22 MIN (ANI Detailed) CPT:32274 Clinical History: IS NOT under investigation for COVID-19 or is COVID-19 negative 73 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 please place abscess drain. Contact number for responsible provider who can be reached for any questions or notifications of critical findings: [phone] n/a LAST CREATININE 0.9 (06/21/24) Report Status: Verified Date Reported: JUN 22, 2024 Date Verified: JUN 22, 2024 Back Grinder E-Sig:/ES/LISA PENDLETON MD Report: PROCEDURES: Placement [...] anesthesia. Using real-time CT fluoroscopy, a 5 [employer] centesis catheter was advanced into the collection in the left pelvis. A wire was coiled in the collection. The tract into the collection was dilated to accommodate the 12 [place] locking pigtail drainage catheter. There was return [...] Interpreting Staff: LISA PENDLETON MD, RADIOLOGIST (Back Grinder) /JRT LISA PENDLETON [facility] Jun 22, 2024 11:[address] NEEDLE PLACEMENT (P): MEGFLACA LOBO [id number] -1950 M Exm Date: JUN 22, 2024@11:48 Req Phys: ANGELA HOLDEN [facility] Loc: [facility]/06-22-2024@17:14 [facility] Loc: CT IMAGING Service: [facility] [address] (Case [id number] COMPLETE) CT SCAN FOR NEEDLE PLACEMENT (CT Detailed) CPT:48488 Reason for Study: l pelvic abscess drain Clinical History: Report Status: Verified Date Reported: JUN 22, 2024 Date Verified: JUN 22, 2024 Back Grinder E-Sig:/ES/LISA PENDLETON MD Report: PROCEDURES: Placement [...] anesthesia. Using real-time CT fluoroscopy, a 5 [employer] catheter was advanced into the collection in the left pelvis. A wire was coiled in the collection. The tract into the collection was dilated to accommodate the 12 [place] locking pigtail drainage catheter. There was return [...] Primary Interpreting Staff: LIAS PENDLETON MD, RADIOLOGIST (Back Grinder) /JRT LISA PENDLETON [facility] Jun 21, 2024 06:[address] (AP) ABDOMEN/PELVIS (P): FLACA WEAVER [id number] -1950 M Ex Date: JUN 21, 2024@18:09 Req Phys: DELIA MARTINEZ Loc: [facility] (Re Img Loc: CT IMAGING Service: [place] [address] (Case [id number] COMPLETE) CT (AP) ABDOMEN/PELVIS W CONTRAST(CT Detailed) CPT:67226 Contrast Media : Non-ionic Iodinated Reason for [...] PLASMA .CREAT EGFR(CKD-E >90 Ref: >=60 Allergies: ([place] only) TERAZOSIN (Mar 13, 2015) Defer to [...] 2024 Date Verified: JUN 21, 2024 Back Grinder E-Sig:/ALEXI/CARLOS A CUNNINGHAM DO Report: EXAMINATION: CT [...] Staff: CARLOS A CUNNINGHAM DO, RADIOLOGIST (Back Grinder) /CARLOS A ROWELL [facility] [...] Reporting Lab: [facility] [CLIA# [id number]] [place] [address] Accession [UID]: [id number] [[id number]] Received: Jul 16, 2024@14:41 Collection sample: BLOOD Collection date: Jul 16, 2024 14:07 Provider: LEISA GOLDEN Comment on specimen: R AC, RECEIVED 2 BLOOD CULTURE BOTTLES Test(s) ordered: CULTURE & SUSCEPTIBILITY...... completed: Jul 22, 2024 * BACTERIOLOGY FINAL REPORT => Jul 22, 2024 13:39 TECH CODE: [id number] CULTURE RESULTS: NO GROWTH 5 DAYS Bacteriology Remark(s): THIS REPORT IS FINAL =--=--=--=--=--=--=--=--=--= --=--=--=--=--=--=--=--=--=- -=--=--=--=--=--=--=-- Performing Laboratory: Bacteriology Report Performed By: [facility] [CLIA# [id number]] [place] [address] [facility] Jul 16, 2024 01:54 PM LR MICROBIOLOGY RE PORT: Reporting Lab: [facility] [IA# [id number]] [place] [address] Accession [UID]: [id number] [[id number]] Received: Jul 16, 2024@14:41 Collection sample: BLOOD Collection date: Jul 16, 2024 13:54 Provider: LEISA GOLDEN Comment on specimen: [place] AC, RECEIVED 2 BLOOD CULTURE BOTTLES Test(s) ordered: CULTURE & SUSCEPTIBILITY...... completed: Jul 22, 2024 * BACTERIOLOGY FINAL REPORT => Jul 22, 2024 13:39 TECH CODE: [id number] CULTURE RESULTS: NO GROWTH 5 DAYS Bacteriology Remark(s): THIS REPORT IS FINAL =--=--=--=--=--=--=--=--=--= --=--=--=--=--=--=--=--=--=- -=--=--=--=--=--=--=-- Performing Laboratory: Bacteriology Report Performed By: [facility] [IA# [id number]] [place] [address] [facility] Jul 03, 2024 05:59 AM LR SURGICAL PATHOL OGY REPORT: LOCAL TITLE: LR SURGICAL PATHOLOGY REPORT STANDARD TITLE: PATHOLOGY REPORT DATE OF NOTE: JUL 06, 2024@10:40:48 ENTRY DATE: JUL 06, 2024@10:40:48 AUTHOR: EDUARDO PALOMARES EXP COSIGNER: URGENCY: STATUS: COMPLETED $APHDR Reporting Lab: [facility] [IA# [id number]] [place] [address] - - - - - - - [...] - PATHOLOGY REPORT Accession No. [id number] - - - - - - - [...] - PATHOLOGY REPORT Accession No. [id number] - - - - - - - [...] Second circumferential surgical margin, en face; E-F: Equine Internship diverticula; G: Equine Internship section of mesentery; H: Random media sales representative section of additional adipose tissue [...] Performed By: [facility] [CLIA# [id number]] [place] [address] $FTR - - - - - - [...] - - [employer] STANDARD FORM 515 ID:[id number] SEX:M :1950 AGE: 73 LOC:09565 ADM:Jun DX:DIVERTICULITIS PCP: Jatidner Cabrera /alexi/ EDUARDO PALOMARES MD STAFF PATHOLOGIST Signed: 07/06/2024 10:40 EDUARDO PALOMARES [facility] Jun 22, 2024 01:15 PM LR MICROBIOLOGY RE PORT: Reporting Lab: [facility] [CLIA# [id number]] [place] [address] Accession [UID]: [id number] [[id number]] Received: Jun 22, 2024@13:38 Collection sample: FLUID Collection date: Jun 22, 2024 13:15 Provider: ANGELA HOLDEN Comment on specimen: LLQ ABSCESS, RECEIVED IN ANAEROBIC TRANSPORT VIAL Test(s) ordered: GRAM STAIN.................... completed: Jun 22, 2024 15:03 CULTURE & SUSCEPTIBILITY...... completed: Jun 25, 2024 * BACTERIOLOGY FINAL REPORT => Jun 25, 2024 10:56 TECH CODE: [id number] GRAM STAIN: DIRECT SMEAR of specimen before [...] Performed By: [facility] [CLIA# [id number]] [place] [address] [facility] Jun 22, 2024 01:15 PM LR MICROBIOLOGY RE PORT: Reporting Lab: [facility] [CLIA# [id number]] [place] [address] Accession [UID]: [id number] [[id number]] Received: Jun 22, 2024@13:38 Collection sample: FLUID Collection date: Jun 22, 2024 13:15 Provider: ANGELA HOLDEN Comment on specimen: LLQ ABSCESS, RECEIVED IN ANAEROBIC TRANSPORT VIAL Test(s) ordered: ANAEROBIC CULTURE............. completed: Jun 28, 2024 * BACTERIOLOGY FINAL REPORT => Jun 28, 2024 10:08 TECH CODE: [id number] CULTURE RESULTS: HEAVY GROWTH MIXED ANAEROBES Comment: [...] Performed By: [facility] [CLIA# [id number]] [place] [address] [facility] Jun 21, 2024 06:12 PM LR MICROBIOLOGY RE PORT: Reporting Lab: [facility] [CLIA# [id number]] [place] [address] Accession [UID]: [id number] [[id number]] Received: Jun 21, 2024@18:12 Collection sample: BLOOD [...] Performed By: [facility] [CLIA# [id number]] [place] [address] [facility] Jun 21, 2024 06:11 PM LR MICROBIOLOGY RE PORT: Reporting Lab: [facility] [CLIA# [id number]] [place] [address] Accession [UID]: [id number] [[id number]] Received: Jun 21, 2024@18:11 Collection sample: BLOOD [...] Performed By: [facility] [CLIA# [id number]] [place] [address] [facility]
--- OUTSIDE RECORDS SUMMARY | 2024-08-01 08:03 | XMS_ITS ---
[place] DAILY HOSPITALIZATION DATA [facility] Encounter Summary Created on: August 01, 2024 MEG FLACADARCI LOBO : 1950 Sex: Male Author Name [facility] [place] [facility] [place] [facility] [place] Address [address] [place] [address] Care Team Providers Care Optical Instrument Specialist Name Role Phone JATINDER CABRERA Primary [...] PART A Sep 29, 2016 PART A [id number] JUDY WEAVER PATIENT Selected Encounter This section includes the information on record at [place] for the Encounter. Date/Time Encounter Type Encounter Description Reason Pro vider Source Jul 20, 2024 11:07 AM Inpatient Visit DAILY HOSPITALIZATION DATA IHE [...] URINALYSIS URINE WC ONCE [facility] Jun 12, 2024 12:00 AM Laboratory - Chemi stry Order BNP PLASMA SP ONCE [facility] Jun 21, 2024 05:45 PM Laboratory - Blood Bank Order TYPE & SCREEN - LAB BLOOD WC [facility] Jul 03, 2024 12:00 AM Laboratory - Blood Bank Order TYPE & SCREEN - LAB BLOOD WC [facility] Jul 16, 2024 12:00 AM Laboratory - Chemi stry Order CBC BLOOD SP ONCE [facility] Jul 17, 2024 12:00 AM Laboratory - Chemi stry Order BASIC METABOLIC PANEL+MG PLASMA SP ONCE [facility] Lab Results: +/- 30 days of [...] Range Comment Jul 21, 2024 10:38 AM [facility] BASIC METABOLIC PANEL+MG Specimen Type: PLASMA No comment entered. Ordering Provider: SARAI GOLDEN Report Released Date/Time: Jul 20, 2024 06:50 PM Reporting Lab: [facility] [address] Performing Lab: [facility] [address] CREATININE 0.8 mg/dL 0.7-1.2 UREA NITROGEN 31 mg/dL H 8-26 GLUCOSE 120 mg/dL H 70-100 SODIUM 125 mmol/L L 136-145 POTASSIUM 4.4 mmol/L 3.5-5.1 CHLORIDE 100 mmol/L 98-107 CO2 17 mmol/L L 22-29 CALCIUM 9.6 mg/dL 8.4-10.2 MAGNESIUM 1.9 mg/dL 1.6-2.6 ANION GAP 8 mmol/L 5-15 .CREAT EGFR(CKD-EPI) >90 >60 Jul 21, 2024 10:38 AM [facility] CBC Specimen Type: BLOOD No comment entered. Ordering Provider: SARAI GOLDEN Report Released Date/Time: Jul 20, 2024 06:50 PM Reporting Lab: [facility] [address] Performing Lab: [facility] [address] WBC 16.0 H 4.0-11.0 RBC 5.16 4.60-6.20 HGB 15.8 g/dL 13.5-17.9 HCT 45.5 41.0-54.0 MCV 88.2 fL 80.0-100.0 MCH 30.6 pg 27.0-33.0 MCHC 34.7 g/dL 32.0-37.5 PLT 428 H 150-400 MPV 10.8 fL 9.1-13.0 RDW 13.6 11.5-14.5 Jul 20, 2024 01:00 PM [facility] SODIUM,URINE RANDOM Specimen Type: URINE No comment entered. Ordering Provider: SARAI GOLDEN Report Released Date/Time: Jul 20, 2024 08:22 AM Reporting Lab: [facility] [address] Performing Lab: [facility] [address] SODIUM,URINE RANDOM <20 mmol/L Jul 20, 2024 01:00 PM [facility] OSMOLALITY,URINE Specimen Type: URINE No comment entered. Ordering Provider: SARAI GOLDEN Report Released Date/Time: Jul 20, 2024 08:22 AM Reporting Lab: [facility] [address] Performing Lab: [facility] [address] OSMOLALITY,URIN E 648 mosm/kg 500-800 Jul 20, 2024 06:45 AM [facility] BASIC METABOLIC PANEL+MG Specimen Type: PLASMA No comment entered. Ordering Provider: SARAI GOLDEN Report Released Date/Time: Jul 19, 2024 06:13 PM Reporting Lab: [facility] [address] Performing Lab: [facility] [address] CREATININE 0.8 mg/dL 0.7-1.2 UREA NITROGEN 36 mg/dL H 8-26 GLUCOSE 111 mg/dL H 70-100 SODIUM 121 mmol/L L 136-145 POTASSIUM 4.1 mmol/L 3.5-5.1 CHLORIDE 99 mmol/L 98-107 CO2 14 mmol/L L 22-29 CALCIUM 9.5 mg/dL 8.4-10.2 MAGNESIUM 1.8 mg/dL 1.6-2.6 ANION GAP 8 mmol/L 5-15 .CREAT EGFR(CKD-EPI) >90 >60 Jul 20, 2024 06:43 AM [facility] CBC & DIFF Specimen Type: BLOOD Comment: Automated Differential Performed Ordering Provider: SARAI GOLDEN Report Released Date/Time: Jul 19, 2024 06:13 PM Reporting Lab: [facility] [address] Performing Lab: [facility] [address] WBC 16.6 H 4.0-11.0 RBC 4.96 4.60-6.20 [...] H 0.0-0.1 Jul 20, 2024 05:30 AM [facility] OSMOLALITY,SERUM Specimen Type: SERUM No comment entered. Ordering Provider: SARAI GOLDEN Report Released Date/Time: Jul 20, 2024 09:47 AM Reporting Lab: [facility] [address] Performing Lab: [facility] [address] OSMOLALITY,SERU M 266 mosm/kg L 276-305 Jul 19, 2024 08:57 AM [facility] BASIC METABOLIC PANEL+MG Specimen Type: PLASMA No comment entered. Ordering Provider: SARAI GOLDEN Report Released Date/Time: Jul 18, 2024 10:24 PM Reporting Lab: [facility] [address] Performing Lab: [facility] [address] CREATININE 1.0 mg/dL 0.7-1.2 UREA NITROGEN 40 mg/dL H 8-26 GLUCOSE 104 mg/dL H 70-100 SODIUM 129 mmol/L L 136-145 POTASSIUM 3.3 mmol/L L 3.5-5.1 CHLORIDE 104 mmol/L 98-107 CO2 16 mmol/L L 22-29 CALCIUM 8.0 mg/dL L 8.4-10.2 MAGNESIUM 1.7 mg/dL 1.6-2.6 ANION GAP 9 mmol/L 5-15 .CREAT EGFR(CKD-EPI) 80 >60 Jul 19, 2024 08:57 AM [facility] CBC Specimen Type: BLOOD No comment entered. Ordering Provider: SARAI GOLDEN Report Released Date/Time: Jul 18, 2024 10:24 PM Reporting Lab: [facility] [address] Performing Lab: [facility] [address] WBC 17.3 H 4.0-11.0 RBC 4.83 4.60-6.20 HGB 14.8 g/dL 13.5-17.9 HCT 42.6 41.0-54.0 MCV 88.2 fL 80.0-100.0 MCH 30.6 pg 27.0-33.0 MCHC 34.7 g/dL 32.0-37.5 PLT 456 H 150-400 MPV 10.8 fL 9.1-13.0 RDW 13.7 11.5-14.5 Jul 17, 2024 06:55 PM [facility] PHOSPHORUS Specimen Type: PLASMA No comment entered. Ordering Provider: SARAI GOLDEN Report Released Date/Time: Jul 17, 2024 01:54 PM Reporting Lab: [facility] [address] Performing Lab: [facility] [address] PHOSPHORUS 2.9 mg/dL 2.3-4.3 Jul 17, 2024 06:55 PM [facility] BASIC METABOLIC PANEL+MG Specimen Type: PLASMA No comment entered. Ordering Provider: SARAI GOLDEN Report Released Date/Time: Jul 17, 2024 01:54 PM Reporting Lab: [facility] [address] Performing Lab: [facility] [address] CREATININE 1.2 mg/dL 0.7-1.2 UREA NITROGEN 62 mg/dL H 8-26 GLUCOSE 116 mg/dL H 70-100 SODIUM 128 mmol/L L 136-145 POTASSIUM 3.8 mmol/L 3.5-5.1 CHLORIDE 100 mmol/L 98-107 CO2 16 mmol/L L 22-29 CALCIUM 9.3 mg/dL 8.4-10.2 MAGNESIUM 2.1 mg/dL 1.6-2.6 ANION GAP 12 mmol/L 5-15 .CREAT EGFR(CKD-EPI) 64 >60 Jul 17, 2024 07:00 AM [facility] CBC & DIFF Specimen Type: BLOOD Comment: Manual Differential Performed Ordering Provider: SARAI GOLDEN Report Released Date/Time: Jul 16, 2024 04:52 PM Reporting Lab: [facility] [address] Performing Lab: [facility] [address] WBC 18.9 H 4.0-11.0 RBC 5.55 4.60-6.20 [...] MORPHOLOGY PRESENT Jul 17, 2024 07:00 AM [facility] ALBUMIN Specimen Type: PLASMA No comment entered. Ordering Provider: SARAI GOLDEN Report Released Date/Time: Jul 16, 2024 12:12 PM Reporting Lab: [facility] [address] Performing Lab: [facility] [address] ALBUMIN 4.3 g/dL 3.5-5.0 Jul 17, 2024 07:00 AM [facility] COMPREHENSIVE METABOLIC PANEL+MG Specimen Type: PLASMA No comment entered. Ordering Provider: SARAI GOLDEN Report Released Date/Time: Jul 16, 2024 04:52 PM Reporting Lab: [facility] [address] Performing Lab: [facility] [address] CREATININE 1.3 mg/dL H 0.7-1.2 UREA NITROGEN [...] L >60 Jul 16, 2024 07:10 PM [facility] LACTIC ACID Specimen Type: PLASMA No comment entered. Ordering Provider: SARAI GOLDEN Report Released Date/Time: Jul 16, 2024 12:12 PM Reporting Lab: [facility] [address] Performing Lab: [facility] [address] LACTIC ACID 0.9 mmol/L 0.5-2.2 Jul 16, 2024 02:14 PM [facility] MRSA SURVL NARES DNA Specimen Type: NARES No comment entered. Ordering Provider: SARAI GOLDEN Report Released Date/Time: Jul 16, 2024 12:12 PM Reporting Lab: [facility] [address] Performing Lab: [facility] [address] MRSA SURVL NARES DNA NEGATIVE Negative Jul 16, 2024 02:10 PM [facility] LACTIC ACID Specimen Type: PLASMA No comment entered. Ordering Provider: SARAI GOLDEN Report Released Date/Time: Jul 16, 2024 12:12 PM Reporting Lab: [facility] [address] Performing Lab: [facility] [address] LACTIC ACID 0.9 mmol/L 0.5-2.2 Jul 16, 2024 02:08 PM [facility] COMPREHENSIVE METABOLIC PANEL+MG Specimen Type: PLASMA No comment entered. Ordering Provider: SARAI GOLDEN Report Released Date/Time: Jul 16, 2024 12:12 PM Reporting Lab: [facility] [address] Performing Lab: [facility] [address] CREATININE 2.0 mg/dL H 0.7-1.2 UREA NITROGEN [...] L >60 Jul 16, 2024 02:08 PM [facility] CBC & DIFF Specimen Type: BLOOD Comment: Manual Differential Performed Ordering Provider: SARAI GOLDEN Report Released Date/Time: Jul 16, 2024 12:12 PM Reporting Lab: [facility] [address] Performing Lab: [facility] [address] WBC 19.7 H 4.0-11.0 RBC 5.39 4.60-6.20 [...] MORPHOLOGY PRESENT Jul 10, 2024 07:16 AM [facility] PHOSPHORUS Specimen Type: PLASMA No comment entered. Ordering Provider: JUANCARLOS ECHOLS Report Released Date/Time: Jul 09, 2024 12:23 PM Reporting Lab: [facility] [address] Performing Lab: [facility] [address] PHOSPHORUS 3.0 mg/dL 2.3-4.3 Jul 10, 2024 07:16 AM [facility] BASIC METABOLIC PANEL+MG Specimen Type: PLASMA No comment entered. Ordering Provider: JUANCARLOS ECHOLS S Report Released Date/Time: Jul 09, 2024 12:23 PM Reporting Lab: [facility] [address] Performing Lab: [facility] [address] CREATININE 0.7 mg/dL 0.7-1.2 UREA NITROGEN 27 mg/dL H 8-26 GLUCOSE 104 mg/dL H 70-100 SODIUM 133 mmol/L L 136-145 POTASSIUM 4.3 mmol/L 3.5-5.1 CHLORIDE 102 mmol/L 98-107 CO2 19 mmol/L L 22-29 CALCIUM 10.1 mg/dL 8.4-10.2 MAGNESIUM 1.9 mg/dL 1.6-2.6 ANION GAP 12 mmol/L 5-15 .CREAT EGFR(CKD-EPI) >90 >60 Jul 10, 2024 07:15 AM [facility] CBC Specimen Type: BLOOD No comment entered. Ordering Provider: JUANCARLOS ECHOLS Report Released Date/Time: Jul 09, 2024 12:23 PM Reporting Lab: [facility] [address] Performing Lab: [facility] [address] WBC 18.8 H 4.0-11.0 RBC 5.08 4.60-6.20 HGB 15.9 g/dL 13.5-17.9 HCT 46.8 41.0-54.0 MCV 92.1 fL 80.0-100.0 MCH 31.3 pg 27.0-33.0 MCHC 34.0 g/dL 32.0-37.5 PLT 479 H 150-400 MPV 10.2 fL 9.1-13.0 RDW 13.7 11.5-14.5 Jul 09, 2024 07:08 AM [facility] CBC Specimen Type: BLOOD No comment entered. Ordering Provider: QUYNH WEISS Report Released Date/Time: Jul 08, 2024 06:18 PM Reporting Lab: [facility] [address] Performing Lab: [facility] [address] WBC 15.3 H 4.0-11.0 RBC 4.91 4.60-6.20 HGB 15.1 g/dL 13.5-17.9 HCT 45.7 41.0-54.0 MCV 93.1 fL 80.0-100.0 MCH 30.8 pg 27.0-33.0 MCHC 33.0 g/dL 32.0-37.5 PLT 443 H 150-400 MPV 10.0 fL 9.1-13.0 RDW 13.5 11.5-14.5 Jul 08, 2024 10:50 AM [facility] URINALYSIS Specimen Type: URINE No comment entered. Ordering Provider: KATELYNN PERSON Report Released Date/Time: Jul 08, 2024 08:41 AM Reporting Lab: [facility] [address] Performing Lab: [facility] [address] URINE COLOR YELLOW SPECIFIC GRAVITY >1.050 H [...] 08, 2024 09:54 AM [facility] CBC Specimen Type: BLOOD Comment: Specimen received in Lab at: [id number] Ordering Provider: JUANCARLOS ECHOLS Report Released Date/Time: Jul 07, 2024 04:49 PM Reporting Lab: [facility] [address] Performing Lab: [facility] [address] WBC 17.5 H 4.0-11.0 RBC 4.88 4.60-6.20 HGB 14.9 g/dL 13.5-17.9 HCT 45.7 41.0-54.0 MCV 93.6 fL 80.0-100.0 MCH 30.5 pg 27.0-33.0 MCHC 32.6 g/dL 32.0-37.5 PLT 472 H 150-400 MPV 10.2 fL 9.1-13.0 RDW 13.7 11.5-14.5 Jul 08, 2024 09:54 AM [facility] PHOSPHORUS Specimen Type: PLASMA Comment: Specimen received in Lab at: [id number] Ordering Provider: JUANCARLOS ECHOLS Report Released Date/Time: Jul 07, 2024 04:49 PM Reporting Lab: [facility] [address] Performing Lab: [facility] [address] PHOSPHORUS 2.6 mg/dL 2.3-4.3 Jul 08, 2024 09:54 AM [facility] BASIC METABOLIC PANEL+MG Specimen Type: PLASMA Comment: Specimen received in Lab at: 0952 Ordering Provider: JUANCARLOS ECHOLS Report Released Date/Time: Jul 07, 2024 04:49 PM Reporting Lab: [facility] [address] Performing Lab: [facility] [address] CREATININE 0.9 mg/dL 0.7-1.2 UREA NITROGEN 26 mg/dL 8-26 GLUCOSE 128 mg/dL H 70-100 SODIUM 134 mmol/L L 136-145 POTASSIUM 3.4 mmol/L L 3.5-5.1 CHLORIDE 100 mmol/L 98-107 CO2 24 mmol/L 22-29 CALCIUM 9.8 mg/dL 8.4-10.2 MAGNESIUM 1.8 mg/dL 1.6-2.6 ANION GAP 10 mmol/L 5-15 .CREAT EGFR(CKD-EPI) >90 >60 Jul 07, 2024 02:00 PM [facility] C DIFF PANEL Specimen Type: FECES No comment entered. Ordering Provider: JEVON ZAZUETA Report Released Date/Time: Jul 07, 2024 12:26 PM Reporting Lab: [facility] [address] Performing Lab: [facility] [address] C DIFF TOX B GENE PCR NEGATIVE Negative Jul 07, 2024 07:41 AM [facility] PHOSPHORUS Specimen Type: PLASMA No comment entered. Ordering Provider: JEVON ZAZUETA Report Released Date/Time: Jul 06, 2024 03:44 PM Reporting Lab: [facility] [address] Performing Lab: [facility] [address] PHOSPHORUS 3.1 mg/dL 2.3-4.3 Jul 07, 2024 07:41 AM [facility] BASIC METABOLIC PANEL+MG Specimen Type: PLASMA No comment entered. Ordering Provider: JEVON ZAZUETA Report Released Date/Time: Jul 06, 2024 03:44 PM Reporting Lab: [facility] [address] Performing Lab: [facility] [address] CREATININE 0.9 mg/dL 0.7-1.2 UREA NITROGEN 20 mg/dL 8-26 GLUCOSE 157 mg/dL H 70-100 SODIUM 136 mmol/L 136-145 POTASSIUM 3.7 mmol/L 3.5-5.1 CHLORIDE 102 mmol/L 98-107 CO2 21 mmol/L L 22-29 CALCIUM 9.8 mg/dL 8.4-10.2 MAGNESIUM 1.9 mg/dL 1.6-2.6 ANION GAP 13 mmol/L 5-15 .CREAT EGFR(CKD-EPI) >90 >60 Jul 07, 2024 07:40 AM [facility] CBC Specimen Type: BLOOD No comment entered. Ordering Provider: JEVON ZAZUETA Report Released Date/Time: Jul 06, 2024 03:44 PM Reporting Lab: [facility] [address] Performing Lab: [facility] [address] WBC 21.2 H 4.0-11.0 RBC 5.09 4.60-6.20 HGB 15.9 g/dL 13.5-17.9 HCT 48.3 41.0-54.0 MCV 94.9 fL 80.0-100.0 MCH 31.2 pg 27.0-33.0 MCHC 32.9 g/dL 32.0-37.5 PLT 500 H 150-400 MPV 10.3 fL 9.1-13.0 RDW 13.6 11.5-14.5 Jul 06, 2024 07:21 AM [facility] CBC Specimen Type: BLOOD No comment entered. Ordering Provider: JEVON ZAZUETA Report Released Date/Time: Jul 05, 2024 01:22 PM Reporting Lab: [facility] [address] Performing Lab: [facility] [address] WBC 18.0 H 4.0-11.0 RBC 4.83 4.60-6.20 HGB 14.6 g/dL 13.5-17.9 HCT 45.5 41.0-54.0 MCV 94.2 fL 80.0-100.0 MCH 30.2 pg 27.0-33.0 MCHC 32.1 g/dL 32.0-37.5 PLT 368 150-400 MPV 10.4 fL 9.1-13.0 RDW 13.6 11.5-14.5 Jul 06, 2024 07:21 AM [facility] PHOSPHORUS Specimen Type: PLASMA No comment entered. Ordering Provider: JEVON ZAZUETA Report Released Date/Time: Jul 05, 2024 01:22 PM Reporting Lab: [facility] [address] Performing Lab: [facility] [address] PHOSPHORUS 3.6 mg/dL 2.3-4.3 Jul 06, 2024 07:21 AM [facility] BASIC METABOLIC PANEL+MG Specimen Type: PLASMA No comment entered. Ordering Provider: JEVON ZAZUETA Report Released Date/Time: Jul 05, 2024 01:22 PM Reporting Lab: [facility] [address] Performing Lab: [facility] [address] CREATININE 0.7 mg/dL 0.7-1.2 UREA NITROGEN 12 mg/dL 8-26 GLUCOSE 108 mg/dL H 70-100 SODIUM 138 mmol/L 136-145 POTASSIUM 3.4 mmol/L L 3.5-5.1 CHLORIDE 104 mmol/L 98-107 CO2 20 mmol/L L 22-29 CALCIUM 9.3 mg/dL 8.4-10.2 MAGNESIUM 1.9 mg/dL 1.6-2.6 ANION GAP 14 mmol/L 5-15 .CREAT EGFR(CKD-EPI) >90 >60 Jul 05, 2024 07:17 AM [facility] MAGNESIUM Specimen Type: PLASMA No comment entered. Ordering Provider: JUANCARLOS ECHOLS S Report Released Date/Time: Jul 04, 2024 09:39 AM Reporting Lab: [facility] [address] Performing Lab: [facility] [address] MAGNESIUM 2.0 mg/dL 1.6-2.6 Jul 05, 2024 07:17 AM [facility] PHOSPHORUS Specimen Type: PLASMA No comment entered. Ordering Provider: JUANCARLOS ECHOLS S Report Released Date/Time: Jul 04, 2024 09:39 AM Reporting Lab: [facility] [address] Performing Lab: [facility] [address] PHOSPHORUS 2.0 mg/dL L 2.3-4.3 Jul 05, 2024 07:17 AM [facility] BASIC METABOLIC PANEL+MG Specimen Type: PLASMA No comment entered. Ordering Provider: JUANCARLOS ECHOLS S Report Released Date/Time: Jul 04, 2024 09:39 AM Reporting Lab: [facility] [address] Performing Lab: [facility] [address] CREATININE 0.7 mg/dL 0.7-1.2 UREA NITROGEN 12 mg/dL 8-26 GLUCOSE 84 mg/dL 70-100 SODIUM 135 mmol/L L 136-145 POTASSIUM 3.8 mmol/L 3.5-5.1 CHLORIDE 104 mmol/L 98-107 CO2 24 mmol/L 22-29 CALCIUM 9.3 mg/dL 8.4-10.2 MAGNESIUM 2.0 mg/dL 1.6-2.6 ANION GAP 7 mmol/L 5-15 .CREAT EGFR(CKD-EPI) >90 >60 Jul 05, 2024 07:16 AM [facility] CBC Specimen Type: BLOOD No comment entered. Ordering Provider: JUANCARLOS ECHOLS S Report Released Date/Time: Jul 04, 2024 09:39 AM Reporting Lab: [facility] [address] Performing Lab: [facility] [address] WBC 18.3 H 4.0-11.0 RBC 4.49 L 4.60-6.20 HGB 14.1 g/dL 13.5-17.9 HCT 43.4 41.0-54.0 MCV 96.7 fL 80.0-100.0 MCH 31.4 pg 27.0-33.0 MCHC 32.5 g/dL 32.0-37.5 PLT 317 150-400 MPV 10.0 fL 9.1-13.0 RDW 13.9 11.5-14.5 Jul 04, 2024 07:17 AM [facility] BASIC METABOLIC PANEL+MG Specimen Type: PLASMA No comment entered. Ordering Provider: GABINO CAMERON Report Released Date/Time: Jul 03, 2024 06:31 PM Reporting Lab: [facility] [address] Performing Lab: [facility] [address] CREATININE 0.7 mg/dL 0.7-1.2 UREA NITROGEN 16 mg/dL 8-26 GLUCOSE 129 mg/dL H 70-100 SODIUM 137 mmol/L 136-145 POTASSIUM 3.7 mmol/L 3.5-5.1 CHLORIDE 107 mmol/L 98-107 CO2 22 mmol/L 22-29 CALCIUM 9.0 mg/dL 8.4-10.2 MAGNESIUM 1.9 mg/dL 1.6-2.6 ANION GAP 8 mmol/L 5-15 .CREAT EGFR(CKD-EPI) >90 >60 Jul 04, 2024 07:17 AM [facility] PHOSPHORUS Specimen Type: PLASMA No comment entered. Ordering Provider: GABINO CAMERON Report Released Date/Time: Jul 03, 2024 06:31 PM Reporting Lab: [facility] [address] Performing Lab: [facility] [address] PHOSPHORUS 2.8 mg/dL 2.3-4.3 Jul 04, 2024 07:16 AM [facility] CBC Specimen Type: BLOOD No comment entered. Ordering Provider: GABINO CAMERON Report Released Date/Time: Jul 03, 2024 06:31 PM Reporting Lab: [facility] [address] Performing Lab: [facility] [address] WBC 20.6 H 4.0-11.0 RBC 4.63 4.60-6.20 HGB 14.2 g/dL 13.5-17.9 HCT 43.4 41.0-54.0 MCV 93.7 fL 80.0-100.0 MCH 30.7 pg 27.0-33.0 MCHC 32.7 g/dL 32.0-37.5 PLT 329 150-400 MPV 10.4 fL 9.1-13.0 RDW 13.8 11.5-14.5 Jul 04, 2024 07:16 AM [facility] CBC & DIFF Specimen Type: BLOOD Comment: Manual Differential Performed Ordering Provider: GABINO CAMERON Report Released Date/Time: Jul 03, 2024 06:31 PM Reporting Lab: [facility] [address] Performing Lab: [facility] [address] WBC 20.6 H 4.0-11.0 RBC 4.63 4.60-6.20 [...] 04, 2024 07:15 AM [facility] BNP Specimen Type: PLASMA No comment entered. Ordering Provider: GABINO CAMERON Report Released Date/Time: Jul 03, 2024 06:31 PM Reporting Lab: [facility] [address] Performing Lab: [facility] [address] BNP 292 pg/mL H <99 Jul 03, 2024 10:32 PM [facility] FINGERSTICK GLUCOSE Specimen Type: BLOOD Comment: Save Result Nurse Notified Ordering Provider: KATELYNN PERSON Report Released Date/Time: Jul 03, 2024 10:50 PM Reporting Lab: [facility] [address] Performing Lab: [facility] [address] FINGERSTICK GLUCOSE 126 mg/dL H 70-100 Jul 03, 2024 05:33 PM [facility] FINGERSTICK GLUCOSE Specimen Type: BLOOD Comment: Save Result Nurse Notified Ordering Provider: KATELYNN PERSON Report Released Date/Time: Jul 03, 2024 05:46 PM Reporting Lab: [facility] [phone] Performing Lab: [facility] [address] FINGERSTICK GLUCOSE 141 mg/dL H 70-100 Jul 03, 2024 02:31 PM [facility] POC ABG/ELECTROLYTES Specimen Type: ARTERIAL BLOOD Comment: FIO2 = 97% Patient Temp: 36.0 C Sample Type = ARTERIAL Ordering Provider: MAZIN ARREDONDO Report Released Date/Time: Jul 03, 2024 01:48 PM Reporting Lab: [facility] [address] Performing Lab: [facility] [address] POC PH 7.387 7.35-7.45 POC PCO2 34.4 [...] 03, 2024 01:05 PM [facility] POC ABG/ELECTROLYTES Specimen Type: ARTERIAL BLOOD Comment: FIO2 = 53% Patient Temp: 36.2 C Sample Type = ARTERIAL Ordering Provider: MAZIN ARREDONDO Report Released Date/Time: Jul 03, 2024 01:48 PM Reporting Lab: [facility] [address] Performing Lab: [facility] [address] POC PH 7.280 L 7.35-7.45 POC PCO2 [...] 03, 2024 06:15 AM [facility] URINALYSIS Specimen Type: URINE No comment entered. Ordering Provider: MARYBETH POWELL Report Released Date/Time: Jun 12, 2024 04:01 PM Reporting Lab: [facility] [address] Performing Lab: [facility] [address] URINE COLOR YELLOW SPECIFIC GRAVITY 1.031 1.003-1.03 [...] 03, 2024 06:13 AM [facility] CBC Specimen Type: BLOOD No comment entered. Ordering Provider: MARYBETH POWELL Report Released Date/Time: Jun 12, 2024 03:59 PM Reporting Lab: [facility] [address] Performing Lab: [facility] [address] WBC 15.8 H 4.0-11.0 RBC 5.11 4.60-6.20 HGB 16.1 g/dL 13.5-17.9 HCT 49.1 41.0-54.0 MCV 96.1 fL 80.0-100.0 MCH 31.5 pg 27.0-33.0 MCHC 32.8 g/dL 32.0-37.5 PLT 357 150-400 MPV 9.8 fL 9.1-13.0 RDW 13.7 11.5-14.5 Jun 24, 2024 09:50 AM [facility] BASIC METABOLIC PANEL+MG Specimen Type: PLASMA Comment: Specimen received in Lab at: [id number] Ordering Provider: JEVON ZAZUETA Report Released Date/Time: Jun 23, 2024 06:07 PM Reporting Lab: [facility] [address] Performing Lab: [facility] [address] CREATININE 0.8 mg/dL 0.7-1.2 UREA NITROGEN 13 mg/dL 8-26 GLUCOSE 135 mg/dL H 70-100 SODIUM 135 mmol/L L 136-145 POTASSIUM 3.6 mmol/L 3.5-5.1 CHLORIDE 103 mmol/L 98-107 CO2 24 mmol/L 22-29 CALCIUM 9.2 mg/dL 8.4-10.2 MAGNESIUM 1.9 mg/dL 1.6-2.6 ANION GAP 8 mmol/L 5-15 .CREAT EGFR(CKD-EPI) >90 >60 Jun 24, 2024 09:50 AM [facility] CBC Specimen Type: BLOOD Comment: Specimen received in Lab at: 0948 Ordering Provider: JEVON ZAZUETA Report Released Date/Time: Jun 23, 2024 06:07 PM Reporting Lab: [facility] [phone] Performing Lab: [facility] [address] WBC 15.5 H 4.0-11.0 RBC 4.93 4.60-6.20 HGB 15.2 g/dL 13.5-17.9 HCT 46.5 41.0-54.0 MCV 94.3 fL 80.0-100.0 MCH 30.8 pg 27.0-33.0 MCHC 32.7 g/dL 32.0-37.5 PLT 223 150-400 MPV 11.4 fL 9.1-13.0 RDW 13.9 11.5-14.5 Jun 23, 2024 07:52 AM [facility] COMPREHENSIVE METABOLIC PANEL+MG Specimen Type: PLASMA No comment entered. Ordering Provider: JEVON ZAZUETA Report Released Date/Time: Jun 22, 2024 05:51 PM Reporting Lab: [facility] [address] Performing Lab: [facility] [address] CREATININE 0.7 mg/dL 0.7-1.2 UREA NITROGEN 16 [...] 23, 2024 07:52 AM [facility] CBC & DIFF Specimen Type: BLOOD Comment: Automated Differential Performed Ordering Provider: JEVON ZAZUETA Report Released Date/Time: Jun 22, 2024 05:51 PM Reporting Lab: [facility] [address] Performing Lab: [facility] [address] WBC 14.9 H 4.0-11.0 RBC 5.09 4.60-6.20 [...] 22, 2024 06:10 PM [facility] CBC Specimen Type: BLOOD No comment entered. Ordering Provider: JEVON ZAZUETA Report Released Date/Time: Jun 22, 2024 05:51 PM Reporting Lab: [facility] [address] Performing Lab: [facility] [address] WBC 16.9 H 4.0-11.0 RBC 5.28 4.60-6.20 HGB 16.9 g/dL 13.5-17.9 HCT 50.4 41.0-54.0 MCV 95.5 fL 80.0-100.0 MCH 32.0 pg 27.0-33.0 MCHC 33.5 g/dL 32.0-37.5 PLT 223 150-400 MPV 10.9 fL 9.1-13.0 RDW 14.0 11.5-14.5 Jun 22, 2024 06:10 PM [facility] COMPREHENSIVE METABOLIC PANEL+MG Specimen Type: PLASMA No comment entered. Ordering Provider: JEVON ZAZUETA Report Released Date/Time: Jun 22, 2024 05:51 PM Reporting Lab: [facility] [address] Performing Lab: [facility] [address] CREATININE 0.7 mg/dL 0.7-1.2 UREA NITROGEN 17 [...] 21, 2024 06:48 PM [facility] URINALYSIS Specimen Type: URINE No comment entered. Ordering Provider: DELIA MARTINEZ Report Released Date/Time: Jun 21, 2024 05:45 PM Reporting Lab: [facility] [address] Performing Lab: [facility] [address] URINE COLOR YELLOW SPECIFIC GRAVITY 1.041 H [...] 21, 2024 05:34 PM [facility] POC CREATININE Specimen Type: BLOOD No comment entered. Ordering Provider: DELIA MARTINEZ Report Released Date/Time: Jun 21, 2024 06:07 PM Reporting Lab: [facility] [address] Performing Lab: [facility] [address] POC CREATININE 1.1 mg/dL 0.6-1.3 Jun 21, 2024 05:30 PM [facility] POC ABG/LACTATE Specimen Type: VENOUS BLOOD No comment entered. Ordering Provider: DELIA MARTINEZ Report Released Date/Time: Jun 21, 2024 06:07 PM Reporting Lab: [facility] [address] Performing Lab: [facility] [address] POC PH 7.470 H 7.31-7.41 POC PCO2 31.2 mm[Hg] L 41.00-51 .0 0 POC PO2 46 mm[Hg] H 35.0-40.0 POC TCO2 24 mmol/L 24.0-29.0 POC HCO3 22.7 mmol/L L 23.0-28.0 POC BE ECT -1 mmol/L POC SO2 85 H 70-75 POC LACTATE 1.85 mmol/L 0.90-1.70 Jun 21, 2024 05:24 PM [facility] PROTHROMBIN TIME/INR Specimen Type: PLASMA No comment entered. Ordering Provider: DELIA MARTINEZ Report Released Date/Time: Jun 21, 2024 05:30 PM Reporting Lab: [facility] [address] Performing Lab: [facility] [address] .INR 1.2 H 0.8-1.1 .PT 13.9 s H 9.4-12.5 Jun 21, 2024 05:24 PM [facility] LIPASE Specimen Type: PLASMA No comment entered. Ordering Provider: DELIA MARTINEZ Report Released Date/Time: Jun 21, 2024 05:30 PM Reporting Lab: [facility] [address] Performing Lab: [facility] [address] LIPASE 32 U/L <60 Jun 21, 2024 05:24 PM [facility] EXTRA GOLD GEL TUBE Specimen Type: SERUM No comment entered. Ordering Provider: DELIA MARTINEZ Report Released Date/Time: Jun 21, 2024 05:41 PM Reporting Lab: [facility] [address] Performing Lab: [facility] [address] EXTRA GOLD GEL TUBE RECEIVED Jun 21, 2024 05:24 PM [facility] COMPREHENSIVE METABOLIC PANEL+MG Specimen Type: PLASMA No comment entered. Ordering Provider: DLEIA MARTINEZ Report Released Date/Time: Jun 21, 2024 05:30 PM Reporting Lab: [facility] [address] Performing Lab: [facility] [address] CREATININE 0.9 mg/dL 0.7-1.2 UREA NITROGEN 29 [...] 21, 2024 05:24 PM [facility] CBC & DIFF Specimen Type: BLOOD Comment: Manual Differential Performed Ordering Provider: DELIA MARTINEZ Report Released Date/Time: Jun 21, 2024 05:30 PM Reporting Lab: [facility] [address] Performing Lab: [facility] [address] WBC 21.3 H 4.0-11.0 RBC 5.48 4.60-6.20 [...] Source Jul 20, 2024 05:[address] [facility] Jul 20, 2024 05:[address] [facility] Jul 20, 2024 03:30 PM 98.2 58 135/[address] [facility] Jul 20, 2024 11:[address] [facility] Jul 20, 2024 08:45 AM 98.1 66 127/62 16 99 0 [facility] Social History: Smoking [...] AM VA-TOBACCO FORMER USER [facility] Tobacco Use History This section includes a history of the smoking, or tobacco-related health factors, that were collected on or before the date of the Encounter. The data comes from the [place] facility where the Encounter took place. Date/Time Smoking Status/Tobacco Use Comment F acility May 15, 2024 08:30 AM VA-TOBACCO QUIT 15 YRS OR MORE [facility] May 06, 2023 11:30 AM VA-TOBACCO FORMER USER [facility] May 06, 2023 11:30 AM VA-TOBACCO QUIT 15 YRS OR MORE [facility] Jun 04, 2022 09:00 AM VA-TOBACCO FORMER USER [facility] Jun 04, 2022 09:00 AM VA-TOBACCO QUIT 15 YRS OR MORE [facility] Jul 10, 2021 08:00 AM VA-TOBACCO FORMER USER [facility] Jul 10, 2021 08:00 AM VA-TOBACCO QUIT 5 TO < 15 YRS [facility] May 23, 2020 08:30 AM VA-TOBACCO FORMER USER [facility] May 23, 2020 08:30 AM VA-TOBACCO QUIT 5 TO < 15 YRS [facility] Mar 20, 2019 04:03 PM VA-TOBACCO FORMER USER [facility] Mar 20, 2019 04:03 PM VA-TOBACCO QUIT 5 TO < 15 YRS [facility] Mar 21, 2018 08:13 AM FORMER TOBACCO USER 7Y OR GREATE R [facility] Feb 24, 2017 09:24 AM FORMER TOBACCO USER 7Y OR GREATE R [facility] January 07, 2016 08:01 AM FORMER TOBACCO USE >1Y <7Y [facility] Feb 03, 2015 07:58 AM FORMER TOBACCO USE <1Y [facility] Feb 26, 2014 08:41 AM CURRENT TOBACCO USER [facility] May 13, 2011 01:45 PM CURRENT TOBACCO USER [facility] Advance Directives: All historical and current Section Date Range: From patient's date of to the date document was created. This section includes ALL of a patient's completed or amended [place] Advance and Rescinded Directives. The entries below indicate that a directive exists for the patient, but an actual copy is not included with this document. The data comes from all [place] facilities. Date Advance Directives Provider Source Mar [...] 06:15 PM CHEST 1 VIEW: FLACA WEAVER [id number] -1950 M Exm Date: JUL 18, 2024@18:15 Req Phys: LEISA GOLDEN Pat Loc: /07-18-2024@19:00 Img Loc: MAIN X-RAY Service: [place] [address] (Case [id number] COMPLETE) CHEST 1 VIEW (RAD Detailed) CPT:71618 Proc Modifiers : PORTABLE EXAM Reason for Study: SOB Clinical History: [place] IS NOT under investigation for COVID-19 or is COVID-19 negative 73 yo with SOB Responsible provider name and phone number to notify for critical findings if other than user placing the order and pager listed below: User placing orders pager: [phone] LAST CREATININE 1.2 (07/17/24) Report Status: Verified Date Reported: JUL 18, 2024 Date Verified: JUL 18, 2024 [employer] E-Sig:/ES/CARLOS A CUNNINGHAM DO Report: EXAMINATION: CHEST 1 VIEW Reason for Study: SOB [place] IS NOT under investigation for COVID-19 or is COVID-19 negative 73 yo with SOB Responsible provider name and phone number to notify for critical findings if other than user placing the order and pager listed below: User placing orders pager: [phone] LAST CREATININE 1.2 (07/17/24) SOB TECHNIQUE: Single [...] Interpreting Staff: CARLOS A CUNNINGHAM DO, RADIOLOGIST ([employer]) /KMB CARLOS A CUNNINGHAM [facility] Jul 16, 2024 07:49 AM [facility] CT ABDOMEN/PELVIS: FLACA WEAVER [id number] -1950 M Exm Date: JUL 16, 2024@07:49 Req Phys: JATINDER CABRERA Loc: 3ES/07-17-2024@09:02 [facility] Loc: OUTSOURCE CT Service: Unknown (Case [id number] COMPLETE) NON [place] CT ABDOMEN/PELVIS (CT Detailed) CPT:05839 Reason for Study: outside study Clinical History: [...] BY: / *ELECTRONICALLY FILED* [facility] Jul 13, 2024 09:41 AM [facility] [address] ABDOMEN/PELVIS: FLACA WEAVER [id number] -1950 M Exm Date: JUL 13, 2024@09:41 Req Phys: JATINDER CABRERA Loc: 3ES07-17-2024@09:08 Img Loc: OUTSOURCE CT Service: Unknown (Case [id number] COMPLETE) NON [facility] ABDOMEN/PELVIS (CT Detailed) CPT:93482 Reason for Study: outside study Clinical History: [...] BY: / *ELECTRONICALLY FILED* [facility] Jul 08, 2024 10:09 AM CHEST 2 VIEWS PA AND LAT: MEGFLACA YAMIL [id number] -1950 M Exm Date: JUL 08, 2024@10:09 Req Phys: KATELYNN PERSON [facility] Loc: 2KG07-08-2024@11:49 Img Loc: MAIN X-RAY Service: [place] [address] (Case 24 COMPLETE) CHEST 2 VIEWS PA AND LAT (RAD Detailed) CPT:82515 Reason for Study: Uptrending WBC, POD 5 [...] 08, 2024 Date Verified: JUL 08, 2024 [employer] E-Sig: Report: CHEST 2 VIEWS PA AND LAT HISTORY: Uptrending WBC, POD 5 COMPARISON: CT chest 11/12/2022 TECHNIQUE: Frontal and lateral views of the chest, submitted to the [place] National Teleradiology Program (NTP) for interpretation. FINDINGS: Lungs: Clear. No focal consolidation. No pulmonary edema. Pleura: No pleural effusion or pneumothorax. Mediastinum: Normal size and contour. Bones: Unremarkable. Impression: No acute cardiopulmonary disease. READING PHYSICIAN: Sarbjit Vaughn M.D. -[id number] 07/08/2024 12:46 [facility] National Teleradiology Program [phone] (For Medical Practitioner Use Only) Attention Patients / Veterans: If you have questions or concerns about these test results, please contact your ordering provider or primary care team. Primary Interpreting Staff: RADIOLOGY,OUTSIDE SERVICE, Staff Physician / RADIOLOGY,OUTSIDE SERVICE [facility] Jul 08, 2024 10:[address] (AP) ABDOMEN/PELVIS W CONTRAST: MEGFLACA YAMIL [id number] -1950 M Exm Date: JUL 08, 2024@10:00 Req Phys: KATELYNN PERSON [facility] Loc: 2K/07-08-2024@12:07 Img Loc: CT IMAGING Service: [place] [address] (Case 22 COMPLETE) CT (AP) ABDOMEN/PELVIS W CONTRAST(CT Detailed) CPT:37513 Contrast Media : Non-ionic Iodinated Reason for [...] PLASMA .CREAT EGFR(CKD-E >90 Ref: >=60 Allergies: ([place] only) TERAZOSIN (Mar 13, 2015) Report Status: Verified Date Reported: JUL 08, 2024 Date Verified: JUL 08, 2024 [employer] E-Sig: Report: CT (AP) ABDOMEN/PELVIS W CONTRAST HISTORY: POD 5, Uptrending WBC - Concern for Abscess/other infection COMPARISON: June 21, 2024 TECHNIQUE: CT abdomen and pelvis was performed after intravenous contrast. Axial, sagittal and coronal reformatted images. The study was performed at the local [place] facility and images were sent to the [place] National Teleradiology Program (NTP) for interpretation. Number [...] as noted above READING PHYSICIAN: Celestino Blanc -[id number] 07/08/2024 13:04 [facility] [employer] Network[employer] Program [phone] (For Medical Practitioner Use Only) Attention Patients / Veterans: If you have questions or concerns about these test results, please contact your ordering provider or primary care team. Primary Interpreting Staff: RADIOLOGY,OUTSIDE SERVICE, Staff Physician / RADIOLOGY,OUTSIDE SERVICE [facility] Jun 22, 2024 11:49 AM ABSCESS DRAIN PLACEMENT PERITONEAL (P): FLACA WEAVER [id number] -1950 M Exm Date: JUN 22, 2024@11:49 Req Phys: ANGELA HOLDEN Loc: [facility]/06-22-2024@17:14 Img Loc: INTERVENTIONAL RADIOLOGY Service: [place] [address] (Case [id number] COMPLETE) IR PERITONEAL/RETROPERITONEAL PER(ANI Detailed) CPT:70056 Reason for Study: diverticulitis with abscess (Case [id number] COMPLETE) IR MOD SEDATION 10-22 MIN (ANI Detailed) CPT:12385 Clinical History: [place] IS NOT under investigation for COVID-19 or is COVID-19 negative 73 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 please place abscess drain. Contact number for responsible provider who can be reached for any questions or notifications of critical findings: [phone] n/a LAST CREATININE 0.9 (06/21/24) Report Status: Verified Date Reported: JUN 22, 2024 Date Verified: JUN 22, 2024 [employer] E-Sig:/ES/LISA PENDLETON MD Report: PROCEDURES: Placement of [...] anesthesia. Using real-time CT fluoroscopy, a 5 Cambodian Newseresis catheter was advanced into the collection in the left pelvis. A wire was coiled in the collection. The tract into the collection was dilated to accommodate the 12 Cambodian locking pigtail drainage catheter. There was return [...] Primary Interpreting Staff: LISA PENDLETON MD, RADIOLOGIST ([employer]) /JRLISA [facility] Jun 22, 2024 11:[address] NEEDLE PLACEMENT (P): FLACA WEAVER [id number] -1950 M Exm Date: JUN 22, 2024@11:48 Req Phys: ANGELA HOLDEN Loc: [facility]06-22-2024@17:14 Im Loc: CT IMAGING Service: [place] [address] (Case [id number] COMPLETE) CT SCAN FOR NEEDLE PLACEMENT (CT Detailed) CPT:88321 Reason for Study: l pelvic abscess drain Clinical History: Report Status: Verified Date Reported: JUN 22, 2024 Date Verified: JUN 22, 2024 [employer] E-Sig:/ES/LISA PENDLETON MD Report: PROCEDURES: Placement of [...] anesthesia. Using real-time CT fluoroscopy, a 5 Cambodian Newseresis catheter was advanced into the collection in the left pelvis. A wire was coiled in the collection. The tract into the collection was dilated to accommodate the 12 Cambodian locking pigtail drainage catheter. There was return [...] Primary Interpreting Staff: LISA PENDLETON MD, RADIOLOGIST ([employer]) /JRT LISA PENDLETON [facility] Jun 21, 2024 06:[address] (AP) ABDOMEN/PELVIS (P): FLACA WEAVER [id number] -1950 M Exm Date: JUN 21, 2024@18:09 Req Phys: DELIA MARTINEZ Loc: [facility] EMERGENCY DEPT WALK-IN (Re Img Loc: CT IMAGING Service: [place] [address] (Case [id number] COMPLETE) CT (AP) ABDOMEN/PELVIS W CONTRAST(CT Detailed) CPT:56251 Contrast Media : Non-ionic Iodinated Reason for [...] PLASMA .CREAT EGFR(CKD-E >90 Ref: >=60 Allergies: ([place] only) TERAZOSIN (Mar 13, 2015) Defer to [...] 21, 2024 Date Verified: JUN 21, 2024 [employer] E-Sig:/ES/CARLOS A CUNNINGHAM DO Report: EXAMINATION: CT [...] 1920 with readback verification. Primary Interpreting Staff: CALROS A CUNNINGHAM DO, RADIOLOGIST ([employer]) /CARLOS A ROWELL [facility] Pathology Reports: +/- 30 days of [...] RE PORT: Reporting Lab: [facility] [CLIA# [id number]] [place] [address] Accession [UID]: [id number] [[id number]] Received: Jul 16, 2024@14:41 Collection sample: BLOOD Collection date: Jul 16, 2024 14:07 Provider: LEISA GOLDEN Comment on specimen: R AC, RECEIVED 2 BLOOD CULTURE BOTTLES Test(s) ordered: CULTURE & SUSCEPTIBILITY...... completed: Jul 22, 2024 * BACTERIOLOGY FINAL REPORT => Jul 22, 2024 13:39 TECH CODE: [id number] CULTURE RESULTS: NO GROWTH 5 DAYS Bacteriology Remark(s): THIS REPORT IS FINAL =--=--=--=--=--=--=--=--=--= --=--=--=--=--=--=--=--=--=- -=--=--=--=--=--=--=-- Performing Laboratory: Bacteriology Report Performed By: [facility] [CLIA# [id number]] [place] [address] [facility] Jul 16, 2024 01:54 PM LR MICROBIOLOGY RE PORT: Reporting Lab: [facility] [IA# [id number]] [place] [address] Accession [UID]: [id number] [[id number]] Received: Jul 16, 2024@14:41 Collection sample: BLOOD Collection date: Jul 16, 2024 13:54 Provider: LEISA GOLDEN Comment on specimen: L AC, RECEIVED 2 BLOOD CULTURE BOTTLES Test(s) ordered: CULTURE & SUSCEPTIBILITY...... completed: Jul 22, 2024 * BACTERIOLOGY FINAL REPORT => Jul 22, 2024 13:39 TECH CODE: [id number] CULTURE RESULTS: NO GROWTH 5 DAYS Bacteriology Remark(s): THIS REPORT IS FINAL =--=--=--=--=--=--=--=--=--= --=--=--=--=--=--=--=--=--=- -=--=--=--=--=--=--=-- Performing Laboratory: Bacteriology Report Performed By: [facility] [IA# [id number]] [place] [address] [facility] Jul 03, 2024 05:59 AM LR SURGICAL PATHOL OGY REPORT: LOCAL TITLE: LR SURGICAL PATHOLOGY REPORT STANDARD TITLE: PATHOLOGY REPORT DATE OF NOTE: JUL 06, 2024@10:40:48 ENTRY DATE: JUL 06, 2024@10:40:48 AUTHOR: EDUARDO PALOMARES EXP COSIGNER: URGENCY: STATUS: COMPLETED $APHDR Reporting Lab: [facility] [IA# [id number]] [place] [address] - - - - - - - [...] - PATHOLOGY REPORT Accession No. [id number] - - - - - - - [...] - PATHOLOGY REPORT Accession No. 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 [facility]: Microscopic examination performed. DIAGNOSIS: 1. Colon, sigmoid, sigmoidectomy-- - Diverticulosis with perforation and focal abscess formation 2. Colon, anastomotic rings, excision-- - Viable colonic mucosa without diagnostic abnormality /es/ EDUARDO PALOMARES MD STAFF PATHOLOGIST Signed Jul 06, 2024@10:40 Performing Laboratory: Surgical Pathology Report Performed By: [facility] [CLIA# [id number]] [place] [address] $FTR - - - - - - [...] - - - - - - MEGFLACA YAMIL STANDARD FORM 515 ID:[id number] SEX:M :1950 AGE: 73 LOC:19846 ADM:Jun DX:DIVERTICULITIS PCP: Jatinder Cabrera /alexi/ EDUARDO PALOMARES MD STAFF PATHOLOGIST Signed: 07/06/2024 10:40 EDUARDO PALOMARES [facility] Jun 22, 2024 01:15 PM LR MICROBIOLOGY RE PORT: Reporting Lab: [facility] [CLIA# [id number]] [place] [address] Accession [UID]: [id number] [[id number]] Received: Jun 22, 2024@13:38 Collection sample: FLUID Collection date: Jun 22, 2024 13:15 Provider: ANGELA HOLDEN Comment on specimen: LLQ ABSCESS, RECEIVED IN ANAEROBIC TRANSPORT VIAL Test(s) ordered: GRAM STAIN.................... completed: Jun 22, 2024 15:03 CULTURE & SUSCEPTIBILITY...... completed: Jun 25, 2024 * BACTERIOLOGY FINAL REPORT => Jun 25, 2024 10:56 TECH CODE: [id number] GRAM STAIN: DIRECT SMEAR of specimen before [...] Bacteriology Report Performed By: [facility] [CLIA# [id number]] [place] [address] [facility] Jun 22, 2024 01:15 PM LR MICROBIOLOGY RE PORT: Reporting Lab: [facility] [CLIA# [id number]] [place] [address] Accession [UID]: [id number] [[id number]] Received: Jun 22, 2024@13:38 Collection sample: FLUID Collection date: Jun 22, 2024 13:15 Provider: ANGELA HOLDEN Comment on specimen: LLQ ABSCESS, RECEIVED IN ANAEROBIC TRANSPORT VIAL Test(s) ordered: ANAEROBIC CULTURE............. completed: Jun 28, 2024 * BACTERIOLOGY FINAL REPORT => Jun 28, 2024 10:08 TECH CODE: [id number] CULTURE RESULTS: HEAVY GROWTH MIXED ANAEROBES Comment: [...] Bacteriology Report Performed By: [facility] [CLIA# [id number]] [place] [address] [facility] Jun 21, 2024 06:12 PM LR MICROBIOLOGY RE PORT: Reporting Lab: [facility] [CLIA# [id number]] [place] [address] Accession [UID]: [id number] [[id number]] Received: Jun 21, 2024@18:12 Collection sample: BLOOD [...] Bacteriology Report Performed By: [facility] [CLIA# [id number]] [place] [address] [facility] Jun 21, 2024 06:11 PM LR MICROBIOLOGY RE PORT: Reporting Lab: [facility] [CLIA# [id number]] [place] [address] Accession [UID]: [id number] [[id number]] Received: Jun 21, 2024@18:11 Collection sample: BLOOD [...] Bacteriology Report Performed By: [facility] [CLIA# [id number]] [place] [address] [facility]
--- OUTSIDE RECORDS SUMMARY | 2024-08-01 08:03 | XMS_ITS | Encounter Summary ---
Author Name [facility] [place] [facility] [place] [facility] [place] Address [address] [place] [address] Care Team Providers Care Vehicle Mechanic Name Role Phone JATINDER CABRERA Primary [...] PART A Sep 29, 2016 PART A [id number] [phone] JUDY WEAVER PATIENT Selected Encounter This section includes the information on record at [place] for the Encounter. 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 Date/Time Primary/Secondary Diagnosis Diagnosis Name Provider Source Jul 31, 2024 01:31 PM PRIMARY Dvrtclos of intest, part unsp, w/o perf or abscess w/o bleed SOCORRO ARREDONDO [facility] Plan of Treatment: Future Appointments (+ [...] Chemi stry Order URINALYSIS URINE WC ONCE [facility] Jun 12, 2024 12:00 AM Laboratory - Chemi stry Order BNP PLASMA SP ONCE [facility] Jun 21, 2024 05:45 PM Laboratory - Blood Bank Order TYPE & SCREEN - LAB BLOOD [facility] Jul 03, 2024 12:00 AM Laboratory - Blood Bank Order TYPE & SCREEN - LAB BLOOD [facility] Jul 16, 2024 12:00 AM Laboratory - Chemi stry Order CBC BLOOD SP ONCE [facility] Jul 17, 2024 12:00 AM Laboratory - Chemi stry Order BASIC METABOLIC PANEL+MG PLASMA SP ONCE [facility] Lab Results: +/- 30 days of [...] Range Comment Jul 21, 2024 10:38 AM [facility] BASIC METABOLIC PANEL+MG Specimen Type: PLASMA No comment entered. Ordering Provider: SARAI GOLDEN Report Released Date/Time: Jul 20, 2024 06:50 PM Reporting Lab: [facility] [address] Performing Lab: [facility] [address] CREATININE 0.8 mg/dL 0.7-1.2 UREA NITROGEN 31 mg/dL H 8-26 GLUCOSE 120 mg/dL H 70-100 SODIUM 125 mmol/L L 136-145 POTASSIUM 4.4 mmol/L 3.5-5.1 CHLORIDE 100 mmol/L 98-107 CO2 17 mmol/L L 22-29 CALCIUM 9.6 mg/dL 8.4-10.2 MAGNESIUM 1.9 mg/dL 1.6-2.6 ANION GAP 8 mmol/L 5-15 .CREAT EGFR(CKD-EPI) >90 >60 Jul 21, 2024 10:38 AM [facility] CBC Specimen Type: BLOOD No comment entered. Ordering Provider: SARAI GOLDEN Report Released Date/Time: Jul 20, 2024 06:50 PM Reporting Lab: [facility] [address] Performing Lab: [facility] [address] WBC 16.0 H 4.0-11.0 RBC 5.16 4.60-6.20 HGB 15.8 g/dL 13.5-17.9 HCT 45.5 41.0-54.0 MCV 88.2 fL 80.0-100.0 MCH 30.6 pg 27.0-33.0 MCHC 34.7 g/dL 32.0-37.5 PLT 428 H 150-400 MPV 10.8 fL 9.1-13.0 RDW 13.6 11.5-14.5 Jul 20, 2024 01:00 PM [facility] SODIUM,URINE RANDOM Specimen Type: URINE No comment entered. Ordering Provider: SARAI GOLDEN Report Released Date/Time: Jul 20, 2024 08:22 AM Reporting Lab: [facility] [phone] Performing Lab: [facility] [address] SODIUM,URINE RANDOM <20 mmol/L Jul 20, 2024 01:00 PM [facility] OSMOLALITY,URINE Specimen Type: URINE No comment entered. Ordering Provider: SARAI GOLDEN Report Released Date/Time: Jul 20, 2024 08:22 AM Reporting Lab: [facility] [address] Performing Lab: [facility] [address] OSMOLALITY,URIN E 648 mosm/kg 500-800 Jul 20, 2024 06:45 AM [facility] BASIC METABOLIC PANEL+MG Specimen Type: PLASMA No comment entered. Ordering Provider: SARAI GOLDEN Report Released Date/Time: Jul 19, 2024 06:13 PM Reporting Lab: [facility] [address] Performing Lab: [facility] [address] CREATININE 0.8 mg/dL 0.7-1.2 UREA NITROGEN 36 mg/dL H 8-26 GLUCOSE 111 mg/dL H 70-100 SODIUM 121 mmol/L L 136-145 POTASSIUM 4.1 mmol/L 3.5-5.1 CHLORIDE 99 mmol/L 98-107 CO2 14 mmol/L L 22-29 CALCIUM 9.5 mg/dL 8.4-10.2 MAGNESIUM 1.8 mg/dL 1.6-2.6 ANION GAP 8 mmol/L 5-15 .CREAT EGFR(CKD-EPI) >90 >60 Jul 20, 2024 06:43 AM [facility] CBC & DIFF Specimen Type: BLOOD Comment: Automated Differential Performed Ordering Provider: SARAI GOLDEN Report Released Date/Time: Jul 19, 2024 06:13 PM Reporting Lab: [facility] [address] Performing Lab: [facility] [address] WBC 16.6 H 4.0-11.0 RBC 4.96 4.60-6.20 [...] H 0.0-0.1 Jul 20, 2024 05:30 AM [facility] OSMOLALITY,SERUM Specimen Type: SERUM No comment entered. Ordering Provider: SARAI GOLDEN Report Released Date/Time: Jul 20, 2024 09:47 AM Reporting Lab: [facility] [address] Performing Lab: [facility] [address] OSMOLALITY,SERU M 266 mosm/kg L 276-305 Jul 19, 2024 08:57 AM [facility] BASIC METABOLIC PANEL+MG Specimen Type: PLASMA No comment entered. Ordering Provider: SARAI GOLDEN Report Released Date/Time: Jul 18, 2024 10:24 PM Reporting Lab: [facility] [address] Performing Lab: [facility] [address] CREATININE 1.0 mg/dL 0.7-1.2 UREA NITROGEN 40 mg/dL H 8-26 GLUCOSE 104 mg/dL H 70-100 SODIUM 129 mmol/L L 136-145 POTASSIUM 3.3 mmol/L L 3.5-5.1 CHLORIDE 104 mmol/L 98-107 CO2 16 mmol/L L 22-29 CALCIUM 8.0 mg/dL L 8.4-10.2 MAGNESIUM 1.7 mg/dL 1.6-2.6 ANION GAP 9 mmol/L 5-15 .CREAT EGFR(CKD-EPI) 80 >60 Jul 19, 2024 08:57 AM [facility] CBC Specimen Type: BLOOD No comment entered. Ordering Provider: SARAI GOLDEN Report Released Date/Time: Jul 18, 2024 10:24 PM Reporting Lab: [facility] [address] Performing Lab: [facility] [address] WBC 17.3 H 4.0-11.0 RBC 4.83 4.60-6.20 HGB 14.8 g/dL 13.5-17.9 HCT 42.6 41.0-54.0 MCV 88.2 fL 80.0-100.0 MCH 30.6 pg 27.0-33.0 MCHC 34.7 g/dL 32.0-37.5 PLT 456 H 150-400 MPV 10.8 fL 9.1-13.0 RDW 13.7 11.5-14.5 Jul 17, 2024 06:55 PM [facility] PHOSPHORUS Specimen Type: PLASMA No comment entered. Ordering Provider: SARAI GOLDEN Report Released Date/Time: Jul 17, 2024 01:54 PM Reporting Lab: [facility] [address] Performing Lab: [facility] [address] PHOSPHORUS 2.9 mg/dL 2.3-4.3 Jul 17, 2024 06:55 PM [facility] BASIC METABOLIC PANEL+MG Specimen Type: PLASMA No comment entered. Ordering Provider: SARAI GOLDEN Report Released Date/Time: Jul 17, 2024 01:54 PM Reporting Lab: [facility] [address] Performing Lab: [facility] [address] CREATININE 1.2 mg/dL 0.7-1.2 UREA NITROGEN 62 mg/dL H 8-26 GLUCOSE 116 mg/dL H 70-100 SODIUM 128 mmol/L L 136-145 POTASSIUM 3.8 mmol/L 3.5-5.1 CHLORIDE 100 mmol/L 98-107 CO2 16 mmol/L L 22-29 CALCIUM 9.3 mg/dL 8.4-10.2 MAGNESIUM 2.1 mg/dL 1.6-2.6 ANION GAP 12 mmol/L 5-15 .CREAT EGFR(CKD-EPI) 64 >60 Jul 17, 2024 07:00 AM [facility] CBC & DIFF Specimen Type: BLOOD Comment: Manual Differential Performed Ordering Provider: SARAI GOLDEN Report Released Date/Time: Jul 16, 2024 04:52 PM Reporting Lab: [facility] [address] Performing Lab: [facility] [address] WBC 18.9 H 4.0-11.0 RBC 5.55 4.60-6.20 [...] MORPHOLOGY PRESENT Jul 17, 2024 07:00 AM [facility] ALBUMIN Specimen Type: PLASMA No comment entered. Ordering Provider: SARAI GOLDEN Report Released Date/Time: Jul 16, 2024 12:12 PM Reporting Lab: [facility] [address] Performing Lab: [facility] [address] ALBUMIN 4.3 g/dL 3.5-5.0 Jul 17, 2024 07:00 AM [facility] COMPREHENSIVE METABOLIC PANEL+MG Specimen Type: PLASMA No comment entered. Ordering Provider: SARAI GOLDEN Report Released Date/Time: Jul 16, 2024 04:52 PM Reporting Lab: [facility] [address] Performing Lab: [facility] [address] CREATININE 1.3 mg/dL H 0.7-1.2 UREA NITROGEN [...] L >60 Jul 16, 2024 07:10 PM [facility] LACTIC ACID Specimen Type: PLASMA No comment entered. Ordering Provider: SARAI GOLDEN Report Released Date/Time: Jul 16, 2024 12:12 PM Reporting Lab: [facility] [address] Performing Lab: [facility] [address] LACTIC ACID 0.9 mmol/L 0.5-2.2 Jul 16, 2024 02:14 PM [facility] MRSA SURVL NARES DNA Specimen Type: NARES No comment entered. Ordering Provider: SARAI GOLDEN Report Released Date/Time: Jul 16, 2024 12:12 PM Reporting Lab: [facility] [address] Performing Lab: [facility] [address] MRSA SURVL NARES DNA NEGATIVE Negative Jul 16, 2024 02:10 PM [facility] LACTIC ACID Specimen Type: PLASMA No comment entered. Ordering Provider: SARAI GOLDEN Report Released Date/Time: Jul 16, 2024 12:12 PM Reporting Lab: [facility] [address] Performing Lab: [facility] [address] LACTIC ACID 0.9 mmol/L 0.5-2.2 Jul 16, 2024 02:08 PM [facility] COMPREHENSIVE METABOLIC PANEL+MG Specimen Type: PLASMA No comment entered. Ordering Provider: SARAI GOLDEN Report Released Date/Time: Jul 16, 2024 12:12 PM Reporting Lab: [facility] [address] Performing Lab: [facility] [address] CREATININE 2.0 mg/dL H 0.7-1.2 UREA NITROGEN [...] L >60 Jul 16, 2024 02:08 PM [facility] CBC & DIFF Specimen Type: BLOOD Comment: Manual Differential Performed Ordering Provider: SARAI GOLDEN Report Released Date/Time: Jul 16, 2024 12:12 PM Reporting Lab: [facility] [address] Performing Lab: [facility] [address] WBC 19.7 H 4.0-11.0 RBC 5.39 4.60-6.20 [...] MORPHOLOGY PRESENT Jul 10, 2024 07:16 AM [facility] PHOSPHORUS Specimen Type: PLASMA No comment entered. Ordering Provider: JUANCARLOS ECHOLS Report Released Date/Time: Jul 09, 2024 12:23 PM Reporting Lab: [facility] [address] Performing Lab: [facility] [address] PHOSPHORUS 3.0 mg/dL 2.3-4.3 Jul 10, 2024 07:16 AM [facility] BASIC METABOLIC PANEL+MG Specimen Type: PLASMA No comment entered. Ordering Provider: JUANCARLOS ECHOLS S Report Released Date/Time: Jul 09, 2024 12:23 PM Reporting Lab: [facility] [address] Performing Lab: [facility] [address] CREATININE 0.7 mg/dL 0.7-1.2 UREA NITROGEN 27 mg/dL H 8-26 GLUCOSE 104 mg/dL H 70-100 SODIUM 133 mmol/L L 136-145 POTASSIUM 4.3 mmol/L 3.5-5.1 CHLORIDE 102 mmol/L 98-107 CO2 19 mmol/L L 22-29 CALCIUM 10.1 mg/dL 8.4-10.2 MAGNESIUM 1.9 mg/dL 1.6-2.6 ANION GAP 12 mmol/L 5-15 .CREAT EGFR(CKD-EPI) >90 >60 Jul 10, 2024 07:15 AM [facility] CBC Specimen Type: BLOOD No comment entered. Ordering Provider: JUANCARLOS ECHOLS S Report Released Date/Time: Jul 09, 2024 12:23 PM Reporting Lab: [facility] [address] Performing Lab: [facility] [address] WBC 18.8 H 4.0-11.0 RBC 5.08 4.60-6.20 HGB 15.9 g/dL 13.5-17.9 HCT 46.8 41.0-54.0 MCV 92.1 fL 80.0-100.0 MCH 31.3 pg 27.0-33.0 MCHC 34.0 g/dL 32.0-37.5 PLT 479 H 150-400 MPV 10.2 fL 9.1-13.0 RDW 13.7 11.5-14.5 Jul 09, 2024 07:08 AM [facility] CBC Specimen Type: BLOOD No comment entered. Ordering Provider: QUYNH WEISS Report Released Date/Time: Jul 08, 2024 06:18 PM Reporting Lab: [facility] [address] Performing Lab: [facility] [address] WBC 15.3 H 4.0-11.0 RBC 4.91 4.60-6.20 HGB 15.1 g/dL 13.5-17.9 HCT 45.7 41.0-54.0 MCV 93.1 fL 80.0-100.0 MCH 30.8 pg 27.0-33.0 MCHC 33.0 g/dL 32.0-37.5 PLT 443 H 150-400 MPV 10.0 fL 9.1-13.0 RDW 13.5 11.5-14.5 Jul 08, 2024 10:50 AM [facility] URINALYSIS Specimen Type: URINE No comment entered. Ordering Provider: KATELYNN PERSON Report Released Date/Time: Jul 08, 2024 08:41 AM Reporting Lab: [facility] [address] Performing Lab: [facility] [address] URINE COLOR YELLOW SPECIFIC GRAVITY >1.050 H [...] NEGATIVE NEGATIVE Jul 08, 2024 09:54 AM [facility] CBC Specimen Type: BLOOD Comment: Specimen received in Lab at: [id number] Ordering Provider: JUANCARLOS ECHOLS Report Released Date/Time: Jul 07, 2024 04:49 PM Reporting Lab: [facility] [address] Performing Lab: [facility] [address] WBC 17.5 H 4.0-11.0 RBC 4.88 4.60-6.20 HGB 14.9 g/dL 13.5-17.9 HCT 45.7 41.0-54.0 MCV 93.6 fL 80.0-100.0 MCH 30.5 pg 27.0-33.0 MCHC 32.6 g/dL 32.0-37.5 PLT 472 H 150-400 MPV 10.2 fL 9.1-13.0 RDW 13.7 11.5-14.5 Jul 08, 2024 09:54 AM [facility] PHOSPHORUS Specimen Type: PLASMA Comment: Specimen received in Lab at: [id number] Ordering Provider: JUANCARLOS ECHOLS Report Released Date/Time: Jul 07, 2024 04:49 PM Reporting Lab: [facility] [address] Performing Lab: [facility] [address] PHOSPHORUS 2.6 mg/dL 2.3-4.3 Jul 08, 2024 09:54 AM [facility] BASIC METABOLIC PANEL+MG Specimen Type: PLASMA Comment: Specimen received in Lab at: [id number] Ordering Provider: JUANCARLOS ECHOLS Report Released Date/Time: Jul 07, 2024 04:49 PM Reporting Lab: [facility] [address] Performing Lab: [facility] [address] CREATININE 0.9 mg/dL 0.7-1.2 UREA NITROGEN 26 mg/dL 8-26 GLUCOSE 128 mg/dL H 70-100 SODIUM 134 mmol/L L 136-145 POTASSIUM 3.4 mmol/L L 3.5-5.1 CHLORIDE 100 mmol/L 98-107 CO2 24 mmol/L 22-29 CALCIUM 9.8 mg/dL 8.4-10.2 MAGNESIUM 1.8 mg/dL 1.6-2.6 ANION GAP 10 mmol/L 5-15 .CREAT EGFR(CKD-EPI) >90 >60 Jul 07, 2024 02:00 PM [facility] C DIFF PANEL Specimen Type: FECES No comment entered. Ordering Provider: JEVON ZAZUETA Report Released Date/Time: Jul 07, 2024 12:26 PM Reporting Lab: [facility] [address] Performing Lab: [facility] [address] C DIFF TOX B GENE PCR NEGATIVE Negative Jul 07, 2024 07:41 AM [facility] PHOSPHORUS Specimen Type: PLASMA No comment entered. Ordering Provider: JEVON ZAZUETA Report Released Date/Time: Jul 06, 2024 03:44 PM Reporting Lab: [facility] [address] Performing Lab: [facility] [address] PHOSPHORUS 3.1 mg/dL 2.3-4.3 Jul 07, 2024 07:41 AM [facility] BASIC METABOLIC PANEL+MG Specimen Type: PLASMA No comment entered. Ordering Provider: JEVON ZAZUETA Report Released Date/Time: Jul 06, 2024 03:44 PM Reporting Lab: [facility] [address] Performing Lab: [facility] [address] CREATININE 0.9 mg/dL 0.7-1.2 UREA NITROGEN 20 mg/dL 8-26 GLUCOSE 157 mg/dL H 70-100 SODIUM 136 mmol/L 136-145 POTASSIUM 3.7 mmol/L 3.5-5.1 CHLORIDE 102 mmol/L 98-107 CO2 21 mmol/L L 22-29 CALCIUM 9.8 mg/dL 8.4-10.2 MAGNESIUM 1.9 mg/dL 1.6-2.6 ANION GAP 13 mmol/L 5-15 .CREAT EGFR(CKD-EPI) >90 >60 Jul 07, 2024 07:40 AM [facility] CBC Specimen Type: BLOOD No comment entered. Ordering Provider: JEVON ZAZUETA Report Released Date/Time: Jul 06, 2024 03:44 PM Reporting Lab: [facility] [address] Performing Lab: [facility] [address] WBC 21.2 H 4.0-11.0 RBC 5.09 4.60-6.20 HGB 15.9 g/dL 13.5-17.9 HCT 48.3 41.0-54.0 MCV 94.9 fL 80.0-100.0 MCH 31.2 pg 27.0-33.0 MCHC 32.9 g/dL 32.0-37.5 PLT 500 H 150-400 MPV 10.3 fL 9.1-13.0 RDW 13.6 11.5-14.5 Jul 06, 2024 07:21 AM [facility] CBC Specimen Type: BLOOD No comment entered. Ordering Provider: JEVON ZAZUETA Report Released Date/Time: Jul 05, 2024 01:22 PM Reporting Lab: [facility] [address] Performing Lab: [facility] [address] WBC 18.0 H 4.0-11.0 RBC 4.83 4.60-6.20 HGB 14.6 g/dL 13.5-17.9 HCT 45.5 41.0-54.0 MCV 94.2 fL 80.0-100.0 MCH 30.2 pg 27.0-33.0 MCHC 32.1 g/dL 32.0-37.5 PLT 368 150-400 MPV 10.4 fL 9.1-13.0 RDW 13.6 11.5-14.5 Jul 06, 2024 07:21 AM [facility] PHOSPHORUS Specimen Type: PLASMA No comment entered. Ordering Provider: JEVON ZAZUETA Report Released Date/Time: Jul 05, 2024 01:22 PM Reporting Lab: [facility] [address] Performing Lab: [facility] [address] PHOSPHORUS 3.6 mg/dL 2.3-4.3 Jul 06, 2024 07:21 AM [facility] BASIC METABOLIC PANEL+MG Specimen Type: PLASMA No comment entered. Ordering Provider: JEVON ZAZUETA Report Released Date/Time: Jul 05, 2024 01:22 PM Reporting Lab: [facility] [address] Performing Lab: [facility] [address] CREATININE 0.7 mg/dL 0.7-1.2 UREA NITROGEN 12 mg/dL 8-26 GLUCOSE 108 mg/dL H 70-100 SODIUM 138 mmol/L 136-145 POTASSIUM 3.4 mmol/L L 3.5-5.1 CHLORIDE 104 mmol/L 98-107 CO2 20 mmol/L L 22-29 CALCIUM 9.3 mg/dL 8.4-10.2 MAGNESIUM 1.9 mg/dL 1.6-2.6 ANION GAP 14 mmol/L 5-15 .CREAT EGFR(CKD-EPI) >90 >60 Jul 05, 2024 07:17 AM [facility] MAGNESIUM Specimen Type: PLASMA No comment entered. Ordering Provider: JUANCARLOS ECHOLS Report Released Date/Time: Jul 04, 2024 09:39 AM Reporting Lab: [facility] [address] Performing Lab: [facility] [address] MAGNESIUM 2.0 mg/dL 1.6-2.6 Jul 05, 2024 07:17 AM [facility] PHOSPHORUS Specimen Type: PLASMA No comment entered. Ordering Provider: JUANCARLOS ECHOLS S Report Released Date/Time: Jul 04, 2024 09:39 AM Reporting Lab: [facility] [address] Performing Lab: [facility] [address] PHOSPHORUS 2.0 mg/dL L 2.3-4.3 Jul 05, 2024 07:17 AM [facility] BASIC METABOLIC PANEL+MG Specimen Type: PLASMA No comment entered. Ordering Provider: JUANCARLOS ECHOLS S Report Released Date/Time: Jul 04, 2024 09:39 AM Reporting Lab: [facility] [address] Performing Lab: [facility] [address] CREATININE 0.7 mg/dL 0.7-1.2 UREA NITROGEN 12 mg/dL 8-26 GLUCOSE 84 mg/dL 70-100 SODIUM 135 mmol/L L 136-145 POTASSIUM 3.8 mmol/L 3.5-5.1 CHLORIDE 104 mmol/L 98-107 CO2 24 mmol/L 22-29 CALCIUM 9.3 mg/dL 8.4-10.2 MAGNESIUM 2.0 mg/dL 1.6-2.6 ANION GAP 7 mmol/L 5-15 .CREAT EGFR(CKD-EPI) >90 >60 Jul 05, 2024 07:16 AM [facility] CBC Specimen Type: BLOOD No comment entered. Ordering Provider: JUANCARLOS ECHOLS S Report Released Date/Time: Jul 04, 2024 09:39 AM Reporting Lab: [facility] [address] Performing Lab: [facility] [address] WBC 18.3 H 4.0-11.0 RBC 4.49 L 4.60-6.20 HGB 14.1 g/dL 13.5-17.9 HCT 43.4 41.0-54.0 MCV 96.7 fL 80.0-100.0 MCH 31.4 pg 27.0-33.0 MCHC 32.5 g/dL 32.0-37.5 PLT 317 150-400 MPV 10.0 fL 9.1-13.0 RDW 13.9 11.5-14.5 Jul 04, 2024 07:17 AM [facility] BASIC METABOLIC PANEL+MG Specimen Type: PLASMA No comment entered. Ordering Provider: GABINO CAMERON Report Released Date/Time: Jul 03, 2024 06:31 PM Reporting Lab: [facility] [address] Performing Lab: [facility] [address] CREATININE 0.7 mg/dL 0.7-1.2 UREA NITROGEN 16 mg/dL 8-26 GLUCOSE 129 mg/dL H 70-100 SODIUM 137 mmol/L 136-145 POTASSIUM 3.7 mmol/L 3.5-5.1 CHLORIDE 107 mmol/L 98-107 CO2 22 mmol/L 22-29 CALCIUM 9.0 mg/dL 8.4-10.2 MAGNESIUM 1.9 mg/dL 1.6-2.6 ANION GAP 8 mmol/L 5-15 .CREAT EGFR(CKD-EPI) >90 >60 Jul 04, 2024 07:17 AM [facility] PHOSPHORUS Specimen Type: PLASMA No comment entered. Ordering Provider: GABINO CAEMRON Report Released Date/Time: Jul 03, 2024 06:31 PM Reporting Lab: [facility] [address] Performing Lab: [facility] [address] PHOSPHORUS 2.8 mg/dL 2.3-4.3 Jul 04, 2024 07:16 AM [facility] CBC Specimen Type: BLOOD No comment entered. Ordering Provider: GABINO CAMERON Report Released Date/Time: Jul 03, 2024 06:31 PM Reporting Lab: [facility] [address] Performing Lab: [facility] [address] WBC 20.6 H 4.0-11.0 RBC 4.63 4.60-6.20 HGB 14.2 g/dL 13.5-17.9 HCT 43.4 41.0-54.0 MCV 93.7 fL 80.0-100.0 MCH 30.7 pg 27.0-33.0 MCHC 32.7 g/dL 32.0-37.5 PLT 329 150-400 MPV 10.4 fL 9.1-13.0 RDW 13.8 11.5-14.5 Jul 04, 2024 07:16 AM [facility] CBC & DIFF Specimen Type: BLOOD Comment: Manual Differential Performed Ordering Provider: GABINO CAMERON Report Released Date/Time: Jul 03, 2024 06:31 PM Reporting Lab: [facility] [address] Performing Lab: [facility] [address] WBC 20.6 H 4.0-11.0 RBC 4.63 4.60-6.20 [...] MORPHOLOGY PRESENT Jul 04, 2024 07:15 AM [facility] BNP Specimen Type: PLASMA No comment entered. Ordering Provider: GABINO CAMERON Report Released Date/Time: Jul 03, 2024 06:31 PM Reporting Lab: [facility] [address] Performing Lab: [facility] [address] BNP 292 pg/mL H <99 Jul 03, 2024 10:32 PM [facility] FINGERSTICK GLUCOSE Specimen Type: BLOOD Comment: Save Result Nurse Notified Ordering Provider: KATELYNN PERSON Report Released Date/Time: Jul 03, 2024 10:50 PM Reporting Lab: [facility] [address] Performing Lab: [facility] [address] FINGERSTICK GLUCOSE 126 mg/dL H 70-100 Jul 03, 2024 05:33 PM [facility] FINGERSTICK GLUCOSE Specimen Type: BLOOD Comment: Save Result Nurse Notified Ordering Provider: KATELYNN PERSON Report Released Date/Time: Jul 03, 2024 05:46 PM Reporting Lab: [facility] [address] Performing Lab: [facility] [address] FINGERSTICK GLUCOSE 141 mg/dL H 70-100 Jul 03, 2024 02:31 PM [facility] POC ABG/ELECTROLYTES Specimen Type: ARTERIAL BLOOD Comment: FIO2 = 97% Patient Temp: 36.0 C Sample Type = ARTERIAL Ordering Provider: MAZIN ARREDONDO Report Released Date/Time: Jul 03, 2024 01:48 PM Reporting Lab: [facility] [address] Performing Lab: [facility] [address] POC PH 7.387 7.35-7.45 POC PCO2 34.4 [...] H 80.0-105.0 Jul 03, 2024 01:05 PM [facility] POC ABG/ELECTROLYTES Specimen Type: ARTERIAL BLOOD Comment: FIO2 = 53% Patient Temp: 36.2 C Sample Type = ARTERIAL Ordering Provider: MAZIN ARREDONDO Report Released Date/Time: Jul 03, 2024 01:48 PM Reporting Lab: [facility] [address] Performing Lab: [facility] [address] POC PH 7.280 L 7.35-7.45 POC PCO2 [...] mm[Hg] 80.0-105.0 Jul 03, 2024 06:15 AM [facility] URINALYSIS Specimen Type: URINE No comment entered. Ordering Provider: MARYBETH POWELL Report Released Date/Time: Jun 12, 2024 04:01 PM Reporting Lab: [facility] [address] Performing Lab: [facility] [address] URINE COLOR YELLOW SPECIFIC GRAVITY 1.031 1.003-1.03 [...] 250 NEGATIVE Jul 03, 2024 06:13 AM [facility] CBC Specimen Type: BLOOD No comment entered. Ordering Provider: MARYBETH POWELL Report Released Date/Time: Jun 12, 2024 03:59 PM Reporting Lab: [facility] [address] Performing Lab: [facility] [address] WBC 15.8 H 4.0-11.0 RBC 5.11 4.60-6.20 HGB 16.1 g/dL 13.5-17.9 HCT 49.1 41.0-54.0 MCV 96.1 fL 80.0-100.0 MCH 31.5 pg 27.0-33.0 MCHC 32.8 g/dL 32.0-37.5 PLT 357 150-400 MPV 9.8 fL 9.1-13.0 RDW 13.7 11.5-14.5 Jun 24, 2024 09:50 AM [facility] BASIC METABOLIC PANEL+MG Specimen Type: PLASMA Comment: Specimen received in Lab at: [id number] Ordering Provider: JEVON ZAZUETA Report Released Date/Time: Jun 23, 2024 06:07 PM Reporting Lab: [facility] [address] Performing Lab: [facility] [address] CREATININE 0.8 mg/dL 0.7-1.2 UREA NITROGEN 13 mg/dL 8-26 GLUCOSE 135 mg/dL H 70-100 SODIUM 135 mmol/L L 136-145 POTASSIUM 3.6 mmol/L 3.5-5.1 CHLORIDE 103 mmol/L 98-107 CO2 24 mmol/L 22-29 CALCIUM 9.2 mg/dL 8.4-10.2 MAGNESIUM 1.9 mg/dL 1.6-2.6 ANION GAP 8 mmol/L 5-15 .CREAT EGFR(CKD-EPI) >90 >60 Jun 24, 2024 09:50 AM [facility] CBC Specimen Type: BLOOD Comment: Specimen received in Lab at: 0920 Ordering Provider: JEVON ZAZUETA Report Released Date/Time: Jun 23, 2024 06:07 PM Reporting Lab: [facility] [address] Performing Lab: [facility] [address] WBC 15.5 H 4.0-11.0 RBC 4.93 4.60-6.20 HGB 15.2 g/dL 13.5-17.9 HCT 46.5 41.0-54.0 MCV 94.3 fL 80.0-100.0 MCH 30.8 pg 27.0-33.0 MCHC 32.7 g/dL 32.0-37.5 PLT 223 150-400 MPV 11.4 fL 9.1-13.0 RDW 13.9 11.5-14.5 Jun 23, 2024 07:52 AM [facility] COMPREHENSIVE METABOLIC PANEL+MG Specimen Type: PLASMA No comment entered. Ordering Provider: JEVON ZAZUETA Report Released Date/Time: Jun 22, 2024 05:51 PM Reporting Lab: [facility] [address] Performing Lab: [facility] [address] CREATININE 0.7 mg/dL 0.7-1.2 UREA NITROGEN 16 [...] >90 >60 Jun 23, 2024 07:52 AM [facility] CBC & DIFF Specimen Type: BLOOD Comment: Automated Differential Performed Ordering Provider: JEVON ZAZUETA Report Released Date/Time: Jun 22, 2024 05:51 PM Reporting Lab: [facility] [address] Performing Lab: [facility] [address] WBC 14.9 H 4.0-11.0 RBC 5.09 4.60-6.20 [...] 0.1 0.0-0.1 Jun 22, 2024 06:10 PM [facility] CBC Specimen Type: BLOOD No comment entered. Ordering Provider: JEVON ZAZUETA Report Released Date/Time: Jun 22, 2024 05:51 PM Reporting Lab: [facility] [address] Performing Lab: [facility] [address] WBC 16.9 H 4.0-11.0 RBC 5.28 4.60-6.20 HGB 16.9 g/dL 13.5-17.9 HCT 50.4 41.0-54.0 MCV 95.5 fL 80.0-100.0 MCH 32.0 pg 27.0-33.0 MCHC 33.5 g/dL 32.0-37.5 PLT 223 150-400 MPV 10.9 fL 9.1-13.0 RDW 14.0 11.5-14.5 Jun 22, 2024 06:10 PM [facility] COMPREHENSIVE METABOLIC PANEL+MG Specimen Type: PLASMA No comment entered. Ordering Provider: JEVON ZAZUETA Report Released Date/Time: Jun 22, 2024 05:51 PM Reporting Lab: [facility] [address] Performing Lab: [facility] [address] CREATININE 0.7 mg/dL 0.7-1.2 UREA NITROGEN 17 [...] >90 >60 Jun 21, 2024 06:48 PM [facility] URINALYSIS Specimen Type: URINE No comment entered. Ordering Provider: DELIA MARTINEZ Report Released Date/Time: Jun 21, 2024 05:45 PM Reporting Lab: [facility] [address] Performing Lab: [facility] [address] URINE COLOR YELLOW SPECIFIC GRAVITY 1.041 H [...] 500 NEGATIVE Jun 21, 2024 05:34 PM [facility] POC CREATININE Specimen Type: BLOOD No comment entered. Ordering Provider: DELIA MARTINEZ Report Released Date/Time: Jun 21, 2024 06:07 PM Reporting Lab: [facility] [address] Performing Lab: [facility] [address] POC CREATININE 1.1 mg/dL 0.6-1.3 Jun 21, 2024 05:30 PM [facility] POC ABG/LACTATE Specimen Type: VENOUS BLOOD No comment entered. Ordering Provider: DELIA MARTINEZ Report Released Date/Time: Jun 21, 2024 06:07 PM Reporting Lab: [facility] [address] Performing Lab: [facility] [address] POC PH 7.470 H 7.31-7.41 POC PCO2 31.2 mm[Hg] L 41.00-51 .0 0 POC PO2 46 mm[Hg] H 35.0-40.0 POC TCO2 24 mmol/L 24.0-29.0 POC HCO3 22.7 mmol/L L 23.0-28.0 POC BE ECT -1 mmol/L POC SO2 85 H 70-75 POC LACTATE 1.85 mmol/L 0.90-1.70 Jun 21, 2024 05:24 PM [facility] PROTHROMBIN TIME/INR Specimen Type: PLASMA No comment entered. Ordering Provider: DELIA MARTINEZ Report Released Date/Time: Jun 21, 2024 05:30 PM Reporting Lab: [facility] [address] Performing Lab: [facility] [address] .INR 1.2 H 0.8-1.1 .PT 13.9 s H 9.4-12.5 Jun 21, 2024 05:24 PM [facility] LIPASE Specimen Type: PLASMA No comment entered. Ordering Provider: DELIA MARTINEZ Report Released Date/Time: Jun 21, 2024 05:30 PM Reporting Lab: [facility] [address] Performing Lab: [facility] [address] LIPASE 32 U/L <60 Jun 21, 2024 05:24 PM [facility] EXTRA GOLD GEL TUBE Specimen Type: SERUM No comment entered. Ordering Provider: DELIA MARTINEZ Report Released Date/Time: Jun 21, 2024 05:41 PM Reporting Lab: [facility] [address] Performing Lab: [facility] [address] EXTRA GOLD GEL TUBE RECEIVED Jun 21, 2024 05:24 PM [facility] COMPREHENSIVE METABOLIC PANEL+MG Specimen Type: PLASMA No comment entered. Ordering Provider: DELIA MARTINEZ Report Released Date/Time: Jun 21, 2024 05:30 PM Reporting Lab: [facility] [address] Performing Lab: [facility] [address] CREATININE 0.9 mg/dL 0.7-1.2 UREA NITROGEN 29 [...] mg/dL <0.5 Jun 21, 2024 05:24 PM [facility] CBC & DIFF Specimen Type: BLOOD Comment: Manual Differential Performed Ordering Provider: DELIA MARTINEZ Report Released Date/Time: Jun 21, 2024 05:30 PM Reporting Lab: [facility] [address] Performing Lab: [facility] [address] WBC 21.3 H 4.0-11.0 RBC 5.48 4.60-6.20 [...] Source Jul 20, 2024 05:52 PM 3 [facility] Jul 20, 2024 05:50 PM 7 [facility] Jul 20, 2024 03:30 PM 98.2 58 135/74 16 98 3 [facility] Jul 20, 2024 11:48 AM 7 [facility] Jul 20, 2024 08:45 AM 98.1 66 127/62 16 99 0 [facility] Social History: Smoking Status (Most [...] 15, 2024 08:30 AM VA-TOBACCO FORMER USER [facility] Tobacco Use History This section includes a history of the smoking, or tobacco-related health factors, that were collected on or before the date of the Encounter. The data comes from the [place] facility where the Encounter took place. Date/Time Smoking Status/Tobacco Use Comment F acility May 15, 2024 08:30 AM VA-TOBACCO QUIT 15 YRS OR MORE [facility] May 06, 2023 11:30 AM VA-TOBACCO FORMER USER [facility] May 06, 2023 11:30 AM VA-TOBACCO [...] 06:15 PM CHEST 1 VIEW: FLACA WEAVER [id number] -1950 M Exm Date: JUL 18, 2024@18:15 Req Phys: LEISA GOLDEN Pat Loc: 07-18-2024@19:00 Img Loc: MAIN X-RAY Service: [place] [address] (Case [id number] COMPLETE) CHEST 1 VIEW (RAD Detailed) CPT:60244 Proc Modifiers : PORTABLE EXAM Reason for Study: SOB Clinical History: [place] IS NOT under investigation for COVID-19 or is COVID-19 negative 73 yo with SOB Responsible provider name and phone number to notify for critical findings if other than user placing the order and pager listed below: User placing orders pager: [phone] LAST CREATININE 1.2 (07/17/24) Report Status: Verified Date Reported: JUL 18, 2024 Date Verified: JUL 18, 2024 Soap Mixer E-Sig:/ES/CARLOS A CUNNINGHAM DO Report: EXAMINATION: CHEST 1 VIEW Reason for Study: SOB IS NOT under investigation for COVID-19 or is COVID-19 negative 73 yo with SOB Responsible provider name and phone number to notify for critical findings if other than user placing the order and pager listed below: User placing orders pager: [phone] LAST CREATININE 1.2 (07/17/24) SOB TECHNIQUE: Single [...] Interpreting Staff: CARLOS A CUNNINGHAM DO, RADIOLOGIST (Soap Mixer) /KMB CARLOS A CUNNINGHAM [facility] Jul 16, 2024 07:49 AM [facility] CT ABDOMEN/PELVIS: MEGFLACA YAMIL [id number] -1950 M Exm Date: JUL 16, 2024@07:49 Req Phys: JATINDER CABRERA [facility] Loc: 07-17-2024@09:02 Img Loc: OUTSOURCE CT Service: Unknown (Case [id number] COMPLETE) NON [place] CT ABDOMEN/PELVIS (CT Detailed) CPT:69353 Reason for Study: outside study Clinical History: [...] Diagnostic Code: VERIFIED BY: / *ELECTRONICALLY FILED* [facility] Jul 13, 2024 09:[address] ABDOMEN/PELVIS: FLACA WEAVER [id number] -1950 M Exm Date: JUL 13, 2024@09:41 Req Phys: JATINDER CABRERA Loc: 3ES07-17-2024@09:08 Img Loc: OUTSOURCE CT Service: Unknown (Case [id number] COMPLETE) NON [facility] CT ABDOMEN/PELVIS (CT Detailed) CPT:42262 Reason for Study: outside study Clinical History: [...] Diagnostic Code: VERIFIED BY: / *ELECTRONICALLY FILED* [facility] Jul 08, 2024 10:09 AM CHEST 2 VIEWS PA AND LAT: FLACA WEAVER [id number] -1950 M Exm Date: JUL 08, 2024@10:09 Req Phys: KATELYNN PERSON Loc: 2KG07-08-2024@11:49 Img Loc: MAIN X-RAY Service: [place] [address] (Case 24 COMPLETE) CHEST 2 VIEWS PA AND LAT (RAD Detailed) CPT:79039 Reason for Study: Uptrending WBC, POD 5 Clinical History: [place] IS NOT under investigation for COVID-19 or is COVID-19 negative POD 5, work up for uptrending wbc Responsible provider name and phone number to notify for critical findings if other than user placing the order and pager listed below: User placing orders pager: Katelynn Person LAST CREATININE 0.9 (07/07/24) Report Status: Verified Date Reported: JUL 08, 2024 Date Verified: JUL 08, 2024 Soap Mixer E-Sig: Report: CHEST 2 VIEWS PA [...] cardiopulmonary disease. READING PHYSICIAN: Sarbjit Vaughn M.D. -[phone] 07/08/2024 12:46 EST [facility] National Teleradiology [facility] [phone] (For Medical Practitioner Use Only) Attention Patients / Veterans: If you have questions or concerns about these test results, please contact your ordering provider or primary care team. Primary Interpreting Staff: RADIOLOGY,OUTSIDE SERVICE, Staff Physician / RADIOLOGY,OUTSIDE SERVICE [facility] Jul 08, 2024 10:[address] (AP) ABDOMEN/PELVIS W CONTRAST: FLACA WEAVER [id number] -1950 Ex Date: JUL 08, 2024@10:00 Req Phys: KATELYNN PERSON [facility] Loc: 2KG/07-08-2024@12:07 Img Loc: CT IMAGING Service: [place] [address] (Case 22 COMPLETE) CT (AP) ABDOMEN/PELVIS W CONTRAST(CT Detailed) CPT:23622 Contrast Media : Non-ionic Iodinated Reason for [...] PLASMA .CREAT EGFR(CKD-E >90 Ref: >=60 Allergies: ([facility] only) TERAZOSIN (Mar 13, 2015) Report Status: Verified Date Reported: JUL 08, 2024 Date Verified: JUL 08, 2024 Soap Mixer E-Sig: Report: CT (AP) ABDOMEN/PELVIS W [...] as noted above READING PHYSICIAN: Celestino Blanc -[phone] 07/08/2024 13:04 [facility] [employer] [facility] [phone] (For Medical Practitioner Use Only) Attention Patients / Veterans: If you have questions or concerns about these test results, please contact your ordering provider or primary care team. Primary Interpreting Staff: RADIOLOGY,OUTSIDE SERVICE, Staff Physician / RADIOLOGY,OUTSIDE SERVICE [facility] Jun 22, 2024 11:49 AM ABSCESS DRAIN PLACEMENT PERITONEAL (P): FLACA WEAVER [id number] -1950 M Exm Date: JUN 22, 2024@11:49 Req Phys: ANGELA HOLDEN [facility] Loc: [facility]/06-22-2024@17:14 Img Loc: INTERVENTIONAL RADIOLOGY Service: [place] [address] (Case [id number] COMPLETE) IR PERITONEAL/RETROPERITONEAL PER(ANI Detailed) CPT:86201 Reason for Study: diverticulitis with abscess (Case 3570 COMPLETE) IR MOD SEDATION 10-22 MIN (ANI Detailed) CPT:66286 Clinical History: [place] IS NOT under investigation for COVID-19 or is COVID-19 negative 73 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 please place abscess drain. Contact number for responsible provider who can be reached for any questions or notifications of critical findings: [phone] n/a LAST CREATININE 0.9 (06/21/24) Report Status: Verified Date Reported: JUN 22, 2024 Date Verified: JUN 22, 2024 Soap Mixer E-Sig:/ES/LISA PENDLETON MD Report: PROCEDURES: Placement [...] anesthesia. Using real-time CT fluoroscopy, a 5 Georgian Beviiesis catheter was advanced into the collection in the left pelvis. A wire was coiled in the collection. The tract into the collection was dilated to accommodate the 12 Georgian locking pigtail drainage catheter. There was return [...] Primary Interpreting Staff: LISA PENDLETON MD, RADIOLOGIST (Soap Mixer) /JRT LISA PENDLETON [facility] Jun 22, 2024 11:[address] NEEDLE PLACEMENT (P): MEGFLACA YAMIL [id number] -1950 M Exm Date: JUN 22, 2024@11:48 Req Phys: ANGELA HOLDEN Loc: [facility]06-22-2024@17:14 Img Loc: CT IMAGING Service: [place] [address] (Case [id number] COMPLETE) CT SCAN FOR NEEDLE PLACEMENT (CT Detailed) CPT:40632 Reason for Study: l pelvic abscess drain Clinical History: Report Status: Verified Date Reported: JUN 22, 2024 Date Verified: JUN 22, 2024 Soap Mixer E-Sig:/ES/LISA PENDLETON MD Report: PROCEDURES: Placement [...] anesthesia. Using real-time CT fluoroscopy, a 5 Georgian Beviiesis catheter was advanced into the collection in the left pelvis. A wire was coiled in the collection. The tract into the collection was dilated to accommodate the 12 Georgian locking pigtail drainage catheter. There was return [...] Primary Interpreting Staff: LISA PENDLETON MD, RADIOLOGIST (Soap Mixer) /JRT LISA PENDLETON [facility] Jun 21, 2024 06:[address] (AP) ABDOMEN/PELVIS (P): FLACA WEAVER [id number] -1950 M Exm Date: JUN 21, 2024@18:09 Req Phys: DELIA MARTINEZ Loc: [facility] EMERGENCY DEPT WALK-IN (Re Img Loc: CT IMAGING Service: [place] [address] (Case [id number] COMPLETE) CT (AP) ABDOMEN/PELVIS W CONTRAST(CT Detailed) CPT:66314 Contrast Media : Non-ionic Iodinated Reason for [...] PLASMA .CREAT EGFR(CKD-E >90 Ref: >=60 Allergies: ([facility] only) TERAZOSIN (Mar 13, 2015) Defer to [...] 21, 2024 Date Verified: JUN 21, 2024 Soap Mixer E-Sig:/ALEXI/CARLOS A CUNNINGHAM DO Report: EXAMINATION: CT [...] Interpreting Staff: CARLOS A CUNNINGHAM DO, RADIOLOGIST (Soap Mixer) /CARLOS A ROWELL [facility] Pathology Reports: +/- 30 days of [...] PM LR MICROBIOLOGY RE PORT: Reporting Lab: [facility] [CLIA# [id number]] [place] [address] Accession [UID]: [id number] [[id number]] Received: Jul 16, 2024@14:41 Collection sample: BLOOD Collection date: Jul 16, 2024 14:07 Provider: LEISA GOLDEN Comment on specimen: R AC, RECEIVED 2 BLOOD CULTURE BOTTLES Test(s) ordered: CULTURE & SUSCEPTIBILITY...... completed: Jul 22, 2024 * BACTERIOLOGY FINAL REPORT => Jul 22, 2024 13:39 TECH CODE: 31356 CULTURE RESULTS: NO GROWTH 5 DAYS Bacteriology Remark(s): THIS REPORT IS FINAL =--=--=--=--=--=--=--=--=--= --=--=--=--=--=--=--=--=--=- -=--=--=--=--=--=--=-- Performing Laboratory: Bacteriology Report Performed By: [facility] [employer] [CLIA# [id number]] [place] [address] [facility] Jul 16, 2024 01:54 PM LR MICROBIOLOGY RE PORT: Reporting Lab: [facility] [employer] [CLIA# [id number]] [place] [address] Accession [UID]: [id number] [[id number]] Received: Jul 16, 2024@14:41 Collection sample: BLOOD Collection date: Jul 16, 2024 13:54 Provider: LEISA GOLDEN Comment on specimen: L AC, RECEIVED 2 BLOOD CULTURE BOTTLES Test(s) ordered: CULTURE & SUSCEPTIBILITY...... completed: Jul 22, 2024 * BACTERIOLOGY FINAL REPORT => Jul 22, 2024 13:39 TECH CODE: [id number] CULTURE RESULTS: NO GROWTH 5 DAYS Bacteriology Remark(s): THIS REPORT IS FINAL =--=--=--=--=--=--=--=--=--= --=--=--=--=--=--=--=--=--=- -=--=--=--=--=--=--=-- Performing Laboratory: Bacteriology Report Performed By: [facility] [employer] [CLIA# [id number]] [place] [address] [facility] Jul 03, 2024 05:59 AM LR SURGICAL PATHOL OGY REPORT: LOCAL TITLE: LR SURGICAL PATHOLOGY REPORT STANDARD TITLE: PATHOLOGY REPORT DATE OF NOTE: JUL 06, 2024@10:40:48 ENTRY DATE: JUL 06, 2024@10:40:48 AUTHOR: EDUARDO PALOMARES EXP COSIGNER: URGENCY: STATUS: COMPLETED $APHDR Reporting Lab: [facility] [CLIA# [id number]] [place] [address] - - - - - - - [...] - PATHOLOGY REPORT Accession No. [id number] - - - - - - - [...] - PATHOLOGY REPORT Accession No. [id number] - - - - - - - [...] Second circumferential surgical margin, en face; E-F: School Custodian diverticula; G: School Custodian section of mesentery; H: Random investment representative section of additional adipose tissue fragment. [...] Viable colonic mucosa without diagnostic abnormality /alexi/ EDAURDO PALOMARES MD STAFF PATHOLOGIST Signed Jul 06, 2024@10:40 Performing Laboratory: Surgical Pathology Report Performed By: [facility] [CLIA# [id number]] [place] [address] $FTR - - - - - - [...] - - FLACA WEAVER STANDARD FORM 515 ID:[id number] SEX:M :1950 AGE: 73 LOC:52868 ADM:Jun DX:DIVERTICULITIS PCP: Jatinder Cabrera /alexi/ EDUARDO PALOMARES MD STAFF PATHOLOGIST Signed: 07/06/2024 10:40 EDUARDO PALOMARES [facility] Jun 22, 2024 01:15 PM LR MICROBIOLOGY RE PORT: Reporting Lab: [facility] [CLIA# [id number]] [place] [address] Accession [UID]: [id number] [[id number]] Received: Jun 22, 2024@13:38 Collection sample: FLUID Collection date: Jun 22, 2024 13:15 Provider: ANGELA HOLDEN Comment on specimen: LLQ ABSCESS, RECEIVED IN ANAEROBIC TRANSPORT VIAL Test(s) ordered: GRAM STAIN.................... completed: Jun 22, 2024 15:03 CULTURE & SUSCEPTIBILITY...... completed: Jun 25, 2024 * BACTERIOLOGY FINAL REPORT => Jun 25, 2024 10:56 TECH CODE: [id number] GRAM STAIN: DIRECT SMEAR of specimen before [...] -=--=--=--=--=--=--=-- Performing Laboratory: Bacteriology Report Performed By: [facility] [CLIA# [id number]] [place] [address] [facility] Jun 22, 2024 01:15 PM LR MICROBIOLOGY RE PORT: Reporting Lab: [facility] [CLIA# [id number]] [place] [address] Accession [UID]: [id number] [[id number]] Received: Jun 22, 2024@13:38 Collection sample: FLUID Collection date: Jun 22, 2024 13:15 Provider: ANGELA HOLDEN Comment on specimen: LLQ ABSCESS, RECEIVED IN ANAEROBIC TRANSPORT VIAL Test(s) ordered: ANAEROBIC CULTURE............. completed: Jun 28, 2024 * BACTERIOLOGY FINAL REPORT => Jun 28, 2024 10:08 TECH CODE: [id number] CULTURE RESULTS: HEAVY GROWTH MIXED ANAEROBES Comment: including the followin+ Bacteroides fragilis 4+ Bacteroides vulgatus 4+ Clostridium innocuum Beta-lactamase negative 4+ Bacteroides caccae 4+ Parvimonas micra 4+ Bacteroides uniformis 4+ Gemella morbillorum 4+ anaerobic small, Gram Positive Rods 4+ Bacteroides thetaiotaomicron Standard workup is now complete. Bacteriology Remark(s): THIS REPORT IS FINAL =--=--=--=--=--=--=--=--=--= --=--=--=--=--=--=--=--=--=- -=--=--=--=--=--=--=-- Performing Laboratory: Bacteriology Report Performed By: [facility] [CLIA# [id number]] [place] [address] [facility] Jun 21, 2024 06:12 PM LR MICROBIOLOGY RE PORT: Reporting Lab: [facility] [CLIA# [id number]] [place] [address] Accession [UID]: [id number] [[id number]] Received: Jun 21, 2024@18:12 Collection sample: BLOOD [...] -=--=--=--=--=--=--=-- Performing Laboratory: Bacteriology Report Performed By: [facility] [CLIA# [id number]] [place] [address] [facility] Jun 21, 2024 06:11 PM LR MICROBIOLOGY RE PORT: Reporting Lab: [facility] [CLIA# [id number]] [place] [address] Accession [UID]: [id number] [[id number]] Received: Jun 21, 2024@18:11 Collection sample: BLOOD [...] -=--=--=--=--=--=--=-- Performing Laboratory: Bacteriology Report Performed By: [facility] [CLIA# [id number]] [place] [address] [facility] Encounter Notes: All associated encounter notes This section contains the clinical notes associated to the Encounter. Date/Time Encounter Note(s) Provider Source Jul 20, 2024 09:10 AM COLON & RECTAL ELISA BRAEDEN NOTE: LOCAL TITLE: COLON-RECTAL INPT PROGRESS NOTE STANDARD TITLE: COLON & RECTAL SURGERY NOTE DATE OF NOTE: JUL 20, 2024@09:10 ENTRY DATE: JUL 20, 2024@09:11:02 AUTHOR: LESLEE QUINTANA EXP COSIGNER: URGENCY: STATUS: COMPLETED INPATIENT PROGRESS NOTE Subjective: Patient feeling better today. Denies abdominal pain, n/v. He has been taking his fiber as prescribed. His stool as per nurse is still on the liquid side. Otherwise, patient eating and drinking. Objective: General: Awake, Alert, Oriented X3, No apparent distress Cardio: regular rate Lungs: normal work of breathing Abd: soft, nontender, nondistended. Ostomy bag was emptied, but nurse explained it was still liquid stool, bulked up a little. Output 1900 mls Extrem: moves all 4 extremities Neuro: A&O [...] to arouse and RR<8). Call provider or ECHOCARDIOGRAPH TECHNICIAN. May repeat every 2-3 min up to [...] TOTAL 0.8 (07/17/24) Imaging No new imaging ordered Assessment/Plan: 74 y/o with PMHx CAD, HLD, [...] Continue close monitoring of ileostomy output - Will increase fiber frequency today - As long as patient intaking appropriate amount of fluids, no need for further IVF - Continue regular diet - Abdominal binder for fascial dehiscence - Will continue to follow Torie Mccray MD [place]/CRS Resident, PGY-1 Current Level of Care: Acute Urinary Catheter/Centeral Lines: Fluids/Electrolytes/Nutritio n (FEN): Deep Vein Thrombosis (DVT) Prophylaxis: Code Status: Disposition: Dr. Arredondo saw and evaluated the patient with me, and agrees with the findings, assessment and plan as outlined. The patient's history, findings, assessment and plan were discussed with Dr. Arredondo, who agrees with the plan. Additional Secondary Diagnoses /es/ LESLEE QUINTANA MD Signed: 07/20/2024 09:22 LESLEE QUINTANA [facility]
--- OUTSIDE RECORDS SUMMARY | 2024-08-01 08:04 | XMS_ITS | Encounter Summary ---
Author Name [facility] [place] [facility] [place] Address [address] [place] [address] Care Team Providers Care Manager Transition Name Role Phone JATINDER CABRERA Primary Care [...] PART A Sep 29, 2016 PART A [id number] [phone] JUDY WEAVER PATIENT Selected Encounter This section includes the information on record at [place] for the Encounter. Date/Time Encounter Type Encounter Description Reason Pro vider Source Jul 19, 2024 01:00 AM Inpatient Visit ADMIN PAT ACTIVTIES ([employer]) SYSTEM,CIS-ARK IHE Encounter Template Text not used by [place] [...] BLOOD WC [facility] Jul 16, 2024 [...] Range Comment Jul 21, 2024 10:38 AM [facility] BASIC METABOLIC PANEL+MG Specimen Type: PLASMA No comment entered. Ordering Provider: SARAI GOLDEN Report Released Date/Time: Jul 20, 2024 06:50 PM Reporting Lab: [facility] [address] Performing Lab: [facility] [address] CREATININE 0.8 mg/dL 0.7-1.2 UREA NITROGEN 31 mg/dL H 8-26 GLUCOSE 120 mg/dL H 70-100 SODIUM 125 mmol/L L 136-145 POTASSIUM 4.4 mmol/L 3.5-5.1 CHLORIDE 100 mmol/L 98-107 CO2 17 mmol/L L 22-29 CALCIUM 9.6 mg/dL 8.4-10.2 MAGNESIUM 1.9 mg/dL 1.6-2.6 ANION GAP 8 mmol/L 5-15 .CREAT EGFR(CKD-EPI) >90 >60 Jul 21, 2024 10:38 AM [facility] CBC Specimen Type: BLOOD No comment entered. Ordering Provider: SARAI GOLDEN Report Released Date/Time: Jul 20, 2024 06:50 PM Reporting Lab: [facility] [address] Performing Lab: [facility] [address] WBC 16.0 H 4.0-11.0 RBC 5.16 4.60-6.20 HGB 15.8 g/dL 13.5-17.9 HCT 45.5 41.0-54.0 MCV 88.2 fL 80.0-100.0 MCH 30.6 pg 27.0-33.0 MCHC 34.7 g/dL 32.0-37.5 PLT 428 H 150-400 MPV 10.8 fL 9.1-13.0 RDW 13.6 11.5-14.5 Jul 20, 2024 01:00 PM [facility] SODIUM,URINE RANDOM Specimen Type: URINE No comment entered. Ordering Provider: SARAI GOLDEN Report Released Date/Time: Jul 20, 2024 08:22 AM Reporting Lab: [facility] [address] Performing Lab: [facility] [address] SODIUM,URINE RANDOM <20 mmol/L Jul 20, 2024 01:00 PM [facility] OSMOLALITY,URINE Specimen Type: URINE No comment entered. Ordering Provider: SARAI GOLDEN Report Released Date/Time: Jul 20, 2024 08:22 AM Reporting Lab: [facility] [address] Performing Lab: [facility] [address] OSMOLALITY,URIN E 648 mosm/kg 500-800 Jul 20, 2024 06:45 AM [facility] BASIC METABOLIC PANEL+MG Specimen Type: PLASMA No comment entered. Ordering Provider: SARAI GOLDEN Report Released Date/Time: Jul 19, 2024 06:13 PM Reporting Lab: [facility] [address] Performing Lab: [facility] [address] CREATININE 0.8 mg/dL 0.7-1.2 UREA NITROGEN 36 mg/dL H 8-26 GLUCOSE 111 mg/dL H 70-100 SODIUM 121 mmol/L L 136-145 POTASSIUM 4.1 mmol/L 3.5-5.1 CHLORIDE 99 mmol/L 98-107 CO2 14 mmol/L L 22-29 CALCIUM 9.5 mg/dL 8.4-10.2 MAGNESIUM 1.8 mg/dL 1.6-2.6 ANION GAP 8 mmol/L 5-15 .CREAT EGFR(CKD-EPI) >90 >60 Jul 20, 2024 06:43 AM [facility] CBC & DIFF Specimen Type: BLOOD Comment: Automated Differential Performed Ordering Provider: SARAI GOLDEN Report Released Date/Time: Jul 19, 2024 06:13 PM Reporting Lab: [facility] [address] Performing Lab: [facility] [address] WBC 16.6 H 4.0-11.0 RBC 4.96 4.60-6.20 [...] H 0.0-0.1 Jul 20, 2024 05:30 AM [facility] OSMOLALITY,SERUM Specimen Type: SERUM No comment entered. Ordering Provider: SARAI GOLDEN Report Released Date/Time: Jul 20, 2024 09:47 AM Reporting Lab: [facility] [address] Performing Lab: [facility] [address] OSMOLALITY,SERU M 266 mosm/kg L 276-305 Jul 19, 2024 08:57 AM [facility] BASIC METABOLIC PANEL+MG Specimen Type: PLASMA No comment entered. Ordering Provider: SARAI GOLDEN Report Released Date/Time: Jul 18, 2024 10:24 PM Reporting Lab: [facility] [address] Performing Lab: [facility] [address] CREATININE 1.0 mg/dL 0.7-1.2 UREA NITROGEN 40 mg/dL H 8-26 GLUCOSE 104 mg/dL H 70-100 SODIUM 129 mmol/L L 136-145 POTASSIUM 3.3 mmol/L L 3.5-5.1 CHLORIDE 104 mmol/L 98-107 CO2 16 mmol/L L 22-29 CALCIUM 8.0 mg/dL L 8.4-10.2 MAGNESIUM 1.7 mg/dL 1.6-2.6 ANION GAP 9 mmol/L 5-15 .CREAT EGFR(CKD-EPI) 80 >60 Jul 19, 2024 08:57 AM [facility] CBC Specimen Type: BLOOD No comment entered. Ordering Provider: SARAI GOLDEN Report Released Date/Time: Jul 18, 2024 10:24 PM Reporting Lab: [facility] [address] Performing Lab: [facility] [address] WBC 17.3 H 4.0-11.0 RBC 4.83 4.60-6.20 HGB 14.8 g/dL 13.5-17.9 HCT 42.6 41.0-54.0 MCV 88.2 fL 80.0-100.0 MCH 30.6 pg 27.0-33.0 MCHC 34.7 g/dL 32.0-37.5 PLT 456 H 150-400 MPV 10.8 fL 9.1-13.0 RDW 13.7 11.5-14.5 Jul 17, 2024 06:55 PM [facility] PHOSPHORUS Specimen Type: PLASMA No comment entered. Ordering Provider: SARAI GOLDEN Report Released Date/Time: Jul 17, 2024 01:54 PM Reporting Lab: [facility] [address] Performing Lab: [facility] [address] PHOSPHORUS 2.9 mg/dL 2.3-4.3 Jul 17, 2024 06:55 PM [facility] BASIC METABOLIC PANEL+MG Specimen Type: PLASMA No comment entered. Ordering Provider: SARAI GOLDEN Report Released Date/Time: Jul 17, 2024 01:54 PM Reporting Lab: [facility] [address] Performing Lab: [facility] [address] CREATININE 1.2 mg/dL 0.7-1.2 UREA NITROGEN 62 mg/dL H 8-26 GLUCOSE 116 mg/dL H 70-100 SODIUM 128 mmol/L L 136-145 POTASSIUM 3.8 mmol/L 3.5-5.1 CHLORIDE 100 mmol/L 98-107 CO2 16 mmol/L L 22-29 CALCIUM 9.3 mg/dL 8.4-10.2 MAGNESIUM 2.1 mg/dL 1.6-2.6 ANION GAP 12 mmol/L 5-15 .CREAT EGFR(CKD-EPI) 64 >60 Jul 17, 2024 07:00 AM [facility] CBC & DIFF Specimen Type: BLOOD Comment: Manual Differential Performed Ordering Provider: SARAI GOLDEN Report Released Date/Time: Jul 16, 2024 04:52 PM Reporting Lab: [facility] [address] Performing Lab: [facility] [address] WBC 18.9 H 4.0-11.0 RBC 5.55 4.60-6.20 [...] MORPHOLOGY PRESENT Jul 17, 2024 07:00 AM [facility] ALBUMIN Specimen Type: PLASMA No comment entered. Ordering Provider: SARAI GOLDEN Report Released Date/Time: Jul 16, 2024 12:12 PM Reporting Lab: [facility] [address] Performing Lab: [facility] [address] ALBUMIN 4.3 g/dL 3.5-5.0 Jul 17, 2024 07:00 AM [facility] COMPREHENSIVE METABOLIC PANEL+MG Specimen Type: PLASMA No comment entered. Ordering Provider: SARAI GOLDEN Report Released Date/Time: Jul 16, 2024 04:52 PM Reporting Lab: [facility] [address] Performing Lab: [facility] [address] CREATININE 1.3 mg/dL H 0.7-1.2 UREA NITROGEN [...] L >60 Jul 16, 2024 07:10 PM [facility] LACTIC ACID Specimen Type: PLASMA No comment entered. Ordering Provider: SARAI GOLDEN Report Released Date/Time: Jul 16, 2024 12:12 PM Reporting Lab: [facility] [address] Performing Lab: [facility] [address] LACTIC ACID 0.9 mmol/L 0.5-2.2 Jul 16, 2024 02:14 PM [facility] MRSA SURVL NARES DNA Specimen Type: NARES No comment entered. Ordering Provider: SARAI GOLDEN Report Released Date/Time: Jul 16, 2024 12:12 PM Reporting Lab: [facility] [address] Performing Lab: [facility] [address] MRSA SURVL NARES DNA NEGATIVE Negative Jul 16, 2024 02:10 PM [facility] LACTIC ACID Specimen Type: PLASMA No comment entered. Ordering Provider: SARAI GOLDEN Report Released Date/Time: Jul 16, 2024 12:12 PM Reporting Lab: [facility] [address] Performing Lab: [facility] [address] LACTIC ACID 0.9 mmol/L 0.5-2.2 Jul 16, 2024 02:08 PM [facility] COMPREHENSIVE METABOLIC PANEL+MG Specimen Type: PLASMA No comment entered. Ordering Provider: SARAI GOLDEN Report Released Date/Time: Jul 16, 2024 12:12 PM Reporting Lab: [facility] [address] Performing Lab: [facility] [address] CREATININE 2.0 mg/dL H 0.7-1.2 UREA NITROGEN [...] L >60 Jul 16, 2024 02:08 PM [facility] CBC & DIFF Specimen Type: BLOOD Comment: Manual Differential Performed Ordering Provider: SARAI GOLDEN Report Released Date/Time: Jul 16, 2024 12:12 PM Reporting Lab: [facility] [address] Performing Lab: [facility] [address] WBC 19.7 H 4.0-11.0 RBC 5.39 4.60-6.20 [...] MORPHOLOGY PRESENT Jul 10, 2024 07:16 AM [facility] PHOSPHORUS Specimen Type: PLASMA No comment entered. Ordering Provider: JUANCARLOS ECHOLS Report Released Date/Time: Jul 09, 2024 12:23 PM Reporting Lab: [facility] [address] Performing Lab: [facility] [address] PHOSPHORUS 3.0 mg/dL 2.3-4.3 Jul 10, 2024 07:16 AM [facility] BASIC METABOLIC PANEL+MG Specimen Type: PLASMA No comment entered. Ordering Provider: JUANCARLOS ECHOLS S Report Released Date/Time: Jul 09, 2024 12:23 PM Reporting Lab: [facility] [address] Performing Lab: [facility] [address] CREATININE 0.7 mg/dL 0.7-1.2 UREA NITROGEN 27 [...] PM Reporting Lab: [facility] [address] Performing Lab: [facility] [address] WBC 18.8 H 4.0-11.0 RBC 5.08 4.60-6.20 [...] PM Reporting Lab: [facility] [address] Performing Lab: [facility] [address] WBC 15.3 H 4.0-11.0 RBC 4.91 4.60-6.20 [...] AM Reporting Lab: [facility] [address] Performing Lab: [facility] [address] URINE COLOR YELLOW SPECIFIC GRAVITY >1.050 H [...] PM Reporting Lab: [facility] [address] Performing Lab: [facility] [address] WBC 17.5 H 4.0-11.0 RBC 4.88 4.60-6.20 [...] PM Reporting Lab: [facility] [address] Performing Lab: [facility] [address] PHOSPHORUS 2.6 mg/dL 2.3-4.3 Jul 08, 2024 09:54 AM [facility] BASIC METABOLIC PANEL+MG Specimen Type: PLASMA Comment: Specimen received in Lab at: [id number] Ordering Provider: JUANCARLOS ECHOLS Report Released Date/Time: Jul 07, 2024 04:49 PM Reporting Lab: [facility] [address] Performing Lab: [facility] [address] CREATININE 0.9 mg/dL 0.7-1.2 UREA NITROGEN 26 [...] PM Reporting Lab: [facility] [address] Performing Lab: [facility] [address] C DIFF TOX B GENE PCR NEGATIVE Negative Jul 07, 2024 07:41 AM [facility] PHOSPHORUS Specimen Type: PLASMA No comment entered. Ordering Provider: JEVON ZAZUETA Report Released Date/Time: Jul 06, 2024 03:44 PM Reporting Lab: [facility] [address] Performing Lab: [facility] [address] PHOSPHORUS 3.1 mg/dL 2.3-4.3 Jul 07, 2024 07:41 AM [facility] BASIC METABOLIC PANEL+MG Specimen Type: PLASMA No comment entered. Ordering Provider: JEVON ZAZUETA Report Released Date/Time: Jul 06, 2024 03:44 PM Reporting Lab: [facility] [address] Performing Lab: [facility] [address] CREATININE 0.9 mg/dL 0.7-1.2 UREA NITROGEN 20 [...] PM Reporting Lab: [facility] [address] Performing Lab: [facility] [address] WBC 21.2 H 4.0-11.0 RBC 5.09 4.60-6.20 [...] PM Reporting Lab: [facility] [address] Performing Lab: [facility] [address] WBC 18.0 H 4.0-11.0 RBC 4.83 4.60-6.20 [...] PM Reporting Lab: [facility] [address] Performing Lab: [facility] [address] PHOSPHORUS 3.6 mg/dL 2.3-4.3 Jul 06, 2024 07:21 AM [facility] BASIC METABOLIC PANEL+MG Specimen Type: PLASMA No comment entered. Ordering Provider: JEVON ZAZUETA Report Released Date/Time: Jul 05, 2024 01:22 PM Reporting Lab: [facility] [address] Performing Lab: [facility] [address] CREATININE 0.7 mg/dL 0.7-1.2 UREA NITROGEN 12 [...] AM Reporting Lab: [facility] [address] Performing Lab: [facility] [address] MAGNESIUM 2.0 mg/dL 1.6-2.6 Jul 05, 2024 07:17 AM [facility] PHOSPHORUS Specimen Type: PLASMA No comment entered. Ordering Provider: JUANCARLOS ECHOLS S Report Released Date/Time: Jul 04, 2024 09:39 AM Reporting Lab: [facility] [address] Performing Lab: [facility] [address] PHOSPHORUS 2.0 mg/dL L 2.3-4.3 Jul 05, 2024 07:17 AM [facility] BASIC METABOLIC PANEL+MG Specimen Type: PLASMA No comment entered. Ordering Provider: JUANCARLOS ECHOLS S Report Released Date/Time: Jul 04, 2024 09:39 AM Reporting Lab: [facility] [address] Performing Lab: [facility] [address] CREATININE 0.7 mg/dL 0.7-1.2 UREA NITROGEN 12 [...] AM Reporting Lab: [facility] [address] Performing Lab: [facility] [address] WBC 18.3 H 4.0-11.0 RBC 4.49 L [...] PM Reporting Lab: [facility] [address] Performing Lab: [facility] [address] PHOSPHORUS 2.8 mg/dL 2.3-4.3 Jul 04, 2024 07:17 AM [facility] BASIC METABOLIC PANEL+MG Specimen Type: PLASMA No comment entered. Ordering Provider: GABINO CAMERON Report Released Date/Time: Jul 03, 2024 06:31 PM Reporting Lab: [facility] [address] Performing Lab: [facility] [address] CREATININE 0.7 mg/dL 0.7-1.2 UREA NITROGEN 16 mg/dL 8-26 GLUCOSE 129 mg/dL H 70-100 SODIUM 137 mmol/L 136-145 POTASSIUM 3.7 mmol/L 3.5-5.1 CHLORIDE 107 mmol/L 98-107 CO2 22 mmol/L 22-29 CALCIUM 9.0 mg/dL 8.4-10.2 MAGNESIUM 1.9 mg/dL 1.6-2.6 ANION GAP 8 mmol/L 5-15 .CREAT EGFR(CKD-EPI) >90 >60 Jul 04, 2024 07:16 AM [facility] CBC Specimen Type: BLOOD No comment entered. Ordering Provider: GABINO CAMERON Report Released Date/Time: Jul 03, 2024 06:31 PM Reporting Lab: [facility] [address] Performing Lab: [facility] [address] WBC 20.6 H 4.0-11.0 RBC 4.63 4.60-6.20 [...] PM Reporting Lab: [facility] [address] Performing Lab: [facility] [address] WBC 20.6 H 4.0-11.0 RBC 4.63 4.60-6.20 [...] PM Reporting Lab: [facility] [address] Performing Lab: [facility] [address] BNP 292 pg/mL H <99 Jul 03, 2024 10:32 PM [facility] FINGERSTICK GLUCOSE Specimen Type: BLOOD Comment: Save Result Nurse Notified Ordering Provider: KATELYNN PERSON Report Released Date/Time: Jul 03, 2024 10:50 PM Reporting Lab: [facility] [address] Performing Lab: [facility] [address] FINGERSTICK GLUCOSE 126 mg/dL H 70-100 Jul 03, 2024 05:33 PM [facility] FINGERSTICK GLUCOSE Specimen Type: BLOOD Comment: Save Result Nurse Notified Ordering Provider: KATELYNN PERSON Report Released Date/Time: Jul 03, 2024 05:46 PM Reporting Lab: [facility] [address] Performing Lab: [facility] [address] FINGERSTICK GLUCOSE 141 mg/dL H 70-100 Jul 03, 2024 02:31 PM [facility] POC ABG/ELECTROLYTES Specimen Type: ARTERIAL BLOOD Comment: FIO2 = 97% Patient Temp: 36.0 C Sample Type = ARTERIAL Ordering Provider: MAZIN ARREDONDO Report Released Date/Time: Jul 03, 2024 01:48 PM Reporting Lab: [facility] [address] Performing Lab: [facility] [address] POC PH 7.387 7.35-7.45 POC PCO2 34.4 [...] PM Reporting Lab: [facility] [address] Performing Lab: [facility] [address] POC PH 7.280 L 7.35-7.45 POC PCO2 [...] PM Reporting Lab: [facility] [address] Performing Lab: [facility] [address] URINE COLOR YELLOW SPECIFIC GRAVITY 1.031 1.003-1.03 [...] PM Reporting Lab: [facility] [address] Performing Lab: [facility] [address] WBC 15.8 H 4.0-11.0 RBC 5.11 4.60-6.20 [...] PM Reporting Lab: [facility] [address] Performing Lab: [facility] [address] CREATININE 0.8 mg/dL 0.7-1.2 UREA NITROGEN 13 [...] PM Reporting Lab: [facility] [address] Performing Lab: [facility] [address] WBC 15.5 H 4.0-11.0 RBC 4.93 4.60-6.20 [...] PM Reporting Lab: [facility] [address] Performing Lab: [facility] [address] CREATININE 0.7 mg/dL 0.7-1.2 UREA NITROGEN 16 [...] PM Reporting Lab: [facility] [address] Performing Lab: [facility] [address] WBC 14.9 H 4.0-11.0 RBC 5.09 4.60-6.20 [...] PM Reporting Lab: [facility] [address] Performing Lab: [facility] [address] CREATININE 0.7 mg/dL 0.7-1.2 UREA NITROGEN 17 [...] PM Reporting Lab: [facility] [address] Performing Lab: [facility] [address] WBC 16.9 H 4.0-11.0 RBC 5.28 4.60-6.20 [...] PM Reporting Lab: [facility] [address] Performing Lab: [facility] [address] URINE COLOR YELLOW SPECIFIC GRAVITY 1.041 H [...] PM Reporting Lab: [facility] [address] Performing Lab: [facility] [address] POC CREATININE 1.1 mg/dL 0.6-1.3 Jun 21, 2024 05:30 PM [facility] POC ABG/LACTATE Specimen Type: VENOUS BLOOD No comment entered. Ordering Provider: DELIA MARTINEZ Report Released Date/Time: Jun 21, 2024 06:07 PM Reporting Lab: [facility] [address] Performing Lab: [facility] [address] POC PH 7.470 H 7.31-7.41 POC PCO2 [...] PM Reporting Lab: [facility] [address] Performing Lab: [facility] [address] .INR 1.2 H 0.8-1.1 .PT 13.9 s H 9.4-12.5 Jun 21, 2024 05:24 PM [facility] LIPASE Specimen Type: PLASMA No comment entered. Ordering Provider: DELIA MARTINEZ Report Released Date/Time: Jun 21, 2024 05:30 PM Reporting Lab: [facility] [address] Performing Lab: [facility] [address] LIPASE 32 U/L <60 Jun 21, 2024 05:24 PM [facility] EXTRA GOLD GEL TUBE Specimen Type: SERUM No comment entered. Ordering Provider: DELIA MARTINEZ Report Released Date/Time: Jun 21, 2024 05:41 PM Reporting Lab: [facility] [address] Performing Lab: [facility] [address] EXTRA GOLD GEL TUBE RECEIVED Jun 21, 2024 05:24 PM [facility] COMPREHENSIVE METABOLIC PANEL+MG Specimen Type: PLASMA No comment entered. Ordering Provider: DELIA MARTINEZ Report Released Date/Time: Jun 21, 2024 05:30 PM Reporting Lab: [facility] [address] Performing Lab: [facility] [address] CREATININE 0.9 mg/dL 0.7-1.2 UREA NITROGEN 29 [...] PM Reporting Lab: [facility] [address] Performing Lab: [facility] [address] WBC 21.3 H 4.0-11.0 RBC 5.48 4.60-6.20 [...] Source Jul 19, 2024 11:29 PM 7 [facility] Jul 19, 2024 05:39 PM 4 [facility] Jul 19, 2024 05:23 PM 8 [facility] Jul 19, 2024 12:50 PM 2 [facility] Jul 19, 2024 11:03 AM 8 [facility] Social History: Smoking Status (Most current) [...] 06:15 PM CHEST 1 VIEW: FLACA WEAVER [id number] -1950 M Exm Date: JUL 18, 2024@18:15 Req Phys: LEISA GOLDEN Pat Loc: /07-18-2024@19:00 Img Loc: MAIN X-RAY Service: PRIMARY CARE - [place] [address] (Case [id number] COMPLETE) CHEST 1 VIEW (RAD Detailed) CPT:75871 Proc Modifiers : PORTABLE EXAM Reason for Study: SOB Clinical History: IS NOT under investigation for COVID-19 or is COVID-19 negative 73 yo with SOB Responsible provider name and phone number to notify for critical findings if other than user placing the order and pager listed below: User placing orders pager: [phone] LAST CREATININE 1.2 (07/17/24) Report Status: Verified Date Reported: JUL 18, 2024 Date Verified: JUL 18, 2024 Automatic Door Mechanic E-Sig:/ES/CARLOS A CUNNINGHAM DO Report: EXAMINATION: CHEST 1 VIEW Reason for Study: SOB [place] IS NOT under investigation for COVID-19 or is COVID-19 negative 73 yo with SOB Responsible provider name and phone number to notify for critical findings if other than user placing the order and pager listed below: User placing orders pager: [phone] LAST CREATININE 1.2 (07/17/24) SOB TECHNIQUE: Single [...] Interpreting Staff: CARLOS A CUNNINGHAM DO, RADIOLOGIST (Automatic Door Mechanic) /KMB CARLOS A CUNNINGHAM [facility] Jul 16, 2024 07:49 AM [facility] CT ABDOMEN/PELVIS: FLACA WEAVER [id number] -1950 M Exm Date: JUL 16, 2024@07:49 Req Phys: JATINDER CABRERA Loc: 3ES/07-17-2024@09:02 [facility] [place] Service: Unknown (Case [id number] COMPLETE) NON [place] CT ABDOMEN/PELVIS (CT Detailed) CPT:04030 Reason for Study: outside study Clinical History: outside study Report Status: Electronically Filed Date Reported: JUL 17, 2024 Report: This is an outside Imaging study and/or report imported for continuity of patient care. This Imaging study and/or report was not reviewed or verified by a [place] Radiologist. Impression: This is an outside Imaging study and/or report imported for continuity of patient care. This Imaging study and/or report was not reviewed or verified by a [place] Radiologist. Primary Diagnostic Code: VERIFIED BY: / *ELECTRONICALLY FILED* [facility] Jul 13, 2024 09:41 AM [facility] CT ABDOMEN/PELVIS: FLACA WEAVER [id number] -1950 M Exm Date: JUL 13, 2024@09:41 Req Phys: JATINDER CABRERA Loc: 3ES07-17-2024@09:08 Img Loc: OUTSOURCE CT Service: Unknown (Case [id number] COMPLETE) NON [facility] ABDOMEN/PELVIS (CT Detailed) CPT:25193 Reason for Study: outside study Clinical History: outside study Report Status: Electronically Filed Date Reported: JUL 17, 2024 Report: This is an outside Imaging study and/or report imported for continuity of patient care. This Imaging study and/or report was not reviewed or verified by a [place] Radiologist. Impression: This is an outside Imaging study and/or report imported for continuity of patient care. This Imaging study and/or report was not reviewed or verified by a [place] Radiologist. Primary Diagnostic Code: VERIFIED BY: / *ELECTRONICALLY FILED* [facility] Jul 08, 2024 10:09 AM CHEST 2 VIEWS PA AND LAT: MEGFLACA YAMIL [id number] -1950 M Exm Date: JUL 08, 2024@10:09 Req Phys: KATELYNN PERSON [facility] Loc: 2KG07-08-2024@11:49 Img Loc: MAIN X-RAY Service: [facility] [place] [address] (Case 24 COMPLETE) CHEST 2 VIEWS PA AND LAT (RAD Detailed) CPT:53633 Reason for Study: Uptrending WBC, POD 5 [...] 08, 2024 Date Verified: JUL 08, 2024 [employer] E-Sig: Report: CHEST 2 VIEWS PA AND [...] cardiopulmonary disease. READING PHYSICIAN: Sarbjit Vaughn M.D. -[id number] 07/08/2024 12:46 [facility] [phone] (For Medical Practitioner Use Only) Attention Patients / Veterans: If you have questions or concerns about these test results, please contact your ordering provider or primary care team. Primary Interpreting Staff: RADIOLOGY,OUTSIDE SERVICE, Staff Physician / RADIOLOGY,OUTSIDE SERVICE [facility] Jul 08, 2024 10:[address] (AP) ABDOMEN/PELVIS W CONTRAST: MEGFLACA YAMIL [id number] -1950 M Exm Date: JUL 08, 2024@10:00 Req Phys: KATELYNN PERSON [facility] Loc: 2K/07-08-2024@12:07 Img Loc: CT IMAGING Service: [facility] [place] [address] (Case 22 COMPLETE) CT (AP) ABDOMEN/PELVIS W CONTRAST(CT Detailed) CPT:44771 Contrast Media : Non-ionic Iodinated Reason for [...] PLASMA .CREAT EGFR(CKD-E >90 Ref: >=60 Allergies: ([place] only) TERAZOSIN (Mar 13, 2015) Report Status: Verified Date Reported: JUL 08, 2024 Date Verified: JUL 08, 2024 Automatic Door Mechanic E-Sig: Report: CT (AP) ABDOMEN/PELVIS W CONTRAST [...] as noted above READING PHYSICIAN: Celestino Blanc -[phone] 07/08/2024 13:04 [facility] [phone] (For Medical Practitioner Use Only) Attention Patients / Veterans: If you have questions or concerns about these test results, please contact your ordering provider or primary care team. Primary Interpreting Staff: RADIOLOGY,OUTSIDE SERVICE, Staff Physician / RADIOLOGY,OUTSIDE SERVICE [facility] Jun 22, 2024 11:49 AM ABSCESS DRAIN PLACEMENT PERITONEAL (P): FLACA WEAVER [id number] -1950 M Exm Date: JUN 22, 2024@11:49 Req Phys: ANGELA HOLDEN Loc: [facility]/06-22-2024@17:14 Img Loc: INTERVENTIONAL RADIOLOGY Service: [facility] [place] [address] (Case [id number] COMPLETE) IR PERITONEAL/RETROPERITONEAL PER(ANI Detailed) CPT:41853 Reason for Study: diverticulitis with abscess (Case 3570 COMPLETE) IR MOD SEDATION 10-22 MIN (ANI Detailed) CPT:86305 Clinical History: IS NOT under investigation for COVID-19 or is COVID-19 negative 73 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 please place abscess drain. Contact number for responsible provider who can be reached for any questions or notifications of critical findings: [phone] n/a LAST CREATININE 0.9 (06/21/24) Report Status: Verified Date Reported: JUN 22, 2024 Date Verified: JUN 22, 2024 Automatic Door Mechanic E-Sig:/ES/LISA PENDLETON MD Report: PROCEDURES: Placement of [...] anesthesia. Using real-time CT fluoroscopy, a 5 [employer]esis catheter was advanced into the collection in the left pelvis. A wire was coiled in the collection. The tract into the collection was dilated to accommodate the 12 [place] locking pigtail drainage catheter. There was return [...] Primary Interpreting Staff: LISA PENDLETON MD, RADIOLOGIST (Automatic Door Mechanic) /JRLISA [facility] Jun 22, 2024 11:[address] NEEDLE PLACEMENT (P): FLACA WEAVER [id number] -1950 M Exm Date: JUN 22, 2024@11:48 Req Phys: ANGELA HOLDEN [facility]: [facility]06-22-2024@17:14 Im Loc: CT IMAGING Service: [facility] [place] [address] (Case [id number] COMPLETE) CT SCAN FOR NEEDLE PLACEMENT (CT Detailed) CPT:75161 Reason for Study: l pelvic abscess drain Clinical History: Report Status: Verified Date Reported: JUN 22, 2024 Date Verified: JUN 22, 2024 Automatic Door Mechanic E-Sig:/ES/LISA PENDLETON MD Report: PROCEDURES: Placement of [...] anesthesia. Using real-time CT fluoroscopy, a 5 [employer]esis catheter was advanced into the collection in the left pelvis. A wire was coiled in the collection. The tract into the collection was dilated to accommodate the 12 [place] locking pigtail drainage catheter. There was return [...] Primary Interpreting Staff: LISA PENDLETON MD, RADIOLOGIST (Automatic Door Mechanic) /JRT LISA PENDLETON [facility] Jun 21, 2024 06:[address] (AP) ABDOMEN/PELVIS (P): FLACA WEAVER [id number] -1950 M Exm Date: JUN 21, 2024@18:09 Req Phys: DELIA MARTINEZ Loc: [facility] EMERGENCY DEPT WALK-IN (Re Img Loc: CT IMAGING Service: [place] [address] (Case [id number] COMPLETE) CT (AP) ABDOMEN/PELVIS W CONTRAST(CT Detailed) CPT:29069 Contrast Media : Non-ionic Iodinated Reason for [...] PLASMA .CREAT EGFR(CKD-E >90 Ref: >=60 Allergies: ([place] only) TERAZOSIN (Mar 13, 2015) Defer to [...] 21, 2024 Date Verified: JUN 21, 2024 Automatic Door Mechanic E-Sig:/ES/CARLOS A CUNNINGHAM DO Report: EXAMINATION: CT [...] is dictated in impression was communicated to DELAI MARTINEZ on 06/21/2024 at 1920 with readback verification. Primary Interpreting Staff: CARLOS A CUNNINGHAM DO, RADIOLOGIST (Automatic Door Mechanic) /CARLOS A ROWELL [facility] [...] Reporting Lab: [facility] [CLIA# [id number]] [place] [address] Accession [UID]: [id number] [[id number]] Received: Jul 16, 2024@14:41 Collection sample: BLOOD Collection date: Jul 16, 2024 14:07 Provider: LEISA GOLDEN Comment on specimen: R AC, RECEIVED 2 BLOOD CULTURE BOTTLES Test(s) ordered: CULTURE & SUSCEPTIBILITY...... completed: Jul 22, 2024 * BACTERIOLOGY FINAL REPORT => Jul 22, 2024 13:39 TECH CODE: [id number] CULTURE RESULTS: NO GROWTH 5 DAYS Bacteriology Remark(s): THIS REPORT IS FINAL =--=--=--=--=--=--=--=--=--= --=--=--=--=--=--=--=--=--=- -=--=--=--=--=--=--=-- Performing Laboratory: Bacteriology Report Performed By: [facility] [CLIA# [id number]] [place] [address] [facility] Jul 16, 2024 01:54 PM LR MICROBIOLOGY RE PORT: Reporting Lab: [facility] [IA# [id number]] [place] [address] Accession [UID]: [id number] [[id number]] Received: Jul 16, 2024@14:41 Collection sample: BLOOD Collection date: Jul 16, 2024 13:54 Provider: LEISA GOLDEN Comment on specimen: L AC, RECEIVED 2 BLOOD CULTURE BOTTLES Test(s) ordered: CULTURE & SUSCEPTIBILITY...... completed: Jul 22, 2024 * BACTERIOLOGY FINAL REPORT => Jul 22, 2024 13:39 TECH CODE: [id number] CULTURE RESULTS: NO GROWTH 5 DAYS Bacteriology Remark(s): THIS REPORT IS FINAL =--=--=--=--=--=--=--=--=--= --=--=--=--=--=--=--=--=--=- -=--=--=--=--=--=--=-- Performing Laboratory: Bacteriology Report Performed By: [facility] [IA# [id number]] [place] [address] [facility] Jul 03, 2024 05:59 AM LR SURGICAL PATHOL OGY REPORT: LOCAL TITLE: LR SURGICAL PATHOLOGY REPORT STANDARD TITLE: PATHOLOGY REPORT DATE OF NOTE: JUL 06, 2024@10:40:48 ENTRY DATE: JUL 06, 2024@10:40:48 AUTHOR: EDUARDO PALOMARES EXP COSIGNER: URGENCY: STATUS: COMPLETED $APHDR Reporting Lab: [facility] [IA# [id number]] [place] [address] - - - - - - - [...] - PATHOLOGY REPORT Accession No. [id number] - - - - - - - [...] Diverticulitis Surgeon/physician: WENCESLAO ARREDONDO MD Attending Surgeon: Wencesalo Arredondo MD =-=-=-=-=-=-=-=-=-=-=-=-=-=- =-=-=-=-=-=-=-=-=-=-=-=-=-=- =-=-=-=-=-=-=-=-=-=-=-= - - - - - - - - - - - - - - - - - - - - - - - - - - - - - - - - - - - - - - - - PATHOLOGY REPORT Accession No. 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 [facility]: Microscopic examination performed. DIAGNOSIS: 1. Colon, sigmoid, sigmoidectomy-- - Diverticulosis with perforation and focal abscess formation 2. Colon, anastomotic rings, excision-- - Viable colonic mucosa without diagnostic abnormality /es/ EDUARDO PALOMARES MD STAFF PATHOLOGIST Signed Jul 06, 2024@10:40 Performing Laboratory: Surgical Pathology Report Performed By: [facility] [CLIA# [id number]] [place] [address] $FTR - - - - - - [...] - - MEGFLACA YAMIL STANDARD FORM 515 ID:[id number] SEX:M :1950 AGE: 73 LOC:87894 ADM:Jun DX:DIVERTICULITIS PCP: Jatinder Cabrera /alexi/ EDUARDO PALOMARES MD STAFF PATHOLOGIST Signed: 07/06/2024 10:40 EDUARDO PALOMARES [facility] Jun 22, 2024 01:15 PM LR MICROBIOLOGY RE PORT: Reporting Lab: [facility] [CLIA# [id number]] [place] [address] Accession [UID]: [id number] [[id number]] Received: Jun 22, 2024@13:38 Collection sample: FLUID Collection date: Jun 22, 2024 13:15 Provider: ANGELA HOLDEN Comment on specimen: LLQ ABSCESS, RECEIVED IN ANAEROBIC TRANSPORT VIAL Test(s) ordered: GRAM STAIN.................... completed: Jun 22, 2024 15:03 CULTURE & SUSCEPTIBILITY...... completed: Jun 25, 2024 * BACTERIOLOGY FINAL REPORT => Jun 25, 2024 10:56 TECH CODE: [id number] GRAM STAIN: DIRECT SMEAR of specimen before [...] Performed By: [facility] [CLIA# [id number]] [place] [address] [facility] Jun 22, 2024 01:15 PM LR MICROBIOLOGY RE PORT: Reporting Lab: [facility] [CLIA# [id number]] [place] [address] Accession [UID]: [id number] [[id number]] Received: Jun 22, 2024@13:38 Collection sample: FLUID Collection date: Jun 22, 2024 13:15 Provider: ANGELA HOLDEN Comment on specimen: LLQ ABSCESS, RECEIVED IN ANAEROBIC TRANSPORT VIAL Test(s) ordered: ANAEROBIC CULTURE............. completed: Jun 28, 2024 * BACTERIOLOGY FINAL REPORT => Jun 28, 2024 10:08 TECH CODE: [id number] CULTURE RESULTS: HEAVY GROWTH MIXED ANAEROBES Comment: [...] Performed By: [facility] [CLIA# [id number]] [place] [address] [facility] Jun 21, 2024 06:12 PM LR MICROBIOLOGY RE PORT: Reporting Lab: [facility] [CLIA# [id number]] [place] [address] Accession [UID]: [id number] [[id number]] Received: Jun 21, 2024@18:12 Collection sample: BLOOD [...] Performed By: [facility] [CLIA# [id number]] [place] [address] [facility] Jun 21, 2024 06:11 PM LR MICROBIOLOGY RE PORT: Reporting Lab: [facility] [CLIA# [id number]] [place] [address] Accession [UID]: [id number] [[id number]] Received: Jun 21, 2024@18:11 Collection sample: BLOOD [...] Performed By: [facility] [CLIA# [id number]] [place] [address] [facility] Encounter Notes: All associated encounter notes This section contains the clinical notes associated to the Encounter. Date/Time Encounter Note(s) Provider Source Jul 19, 2024 01:00 AM CRITICAL CARE UNIT NOTE: LOCAL TITLE: ICCA INPATIENT FLOWSHEET STANDARD TITLE: CRITICAL CARE UNIT NOTE DATE OF NOTE: JUL 19, 2024@01:00 ENTRY DATE: JUL 20, 2024@14:36:42 AUTHOR: KELLY WINKLER EXP COSIGNER: URGENCY: STATUS: COMPLETED This is a place aranda only. Please see [employer] to view document. /es/ [employer] SYSTEM ICU DOCUMENT IMPORT Signed: 07/20/2024 14:36 SYSTEMMirror Digital-CHRISTOPHER [facility] Jul 19, 2024 01:00 AM CRITICAL CARE UNIT NOTE: LOCAL TITLE: ICCA RESPIRATORY THERAPY FLOWSHEET STANDARD TITLE: CRITICAL CARE UNIT NOTE DATE OF NOTE: JUL 19, 2024@01:00 ENTRY DATE: JUL 20, 2024@15:04:36 AUTHOR: SYSTEM,[facility] EXP COSIGNER: URGENCY: STATUS: COMPLETED This is a place aranda only. Please see [employer] to view document. /es/ [employer] SYSTEM ICU DOCUMENT IMPORT Signed: 07/20/2024 15:04 SYSTEM,[facility]ARK [facility]
--- OUTSIDE RECORDS SUMMARY | 2024-08-01 08:04 | XMS_ITS ---
[place] DAILY HOSPITALIZATION DATA [facility]CS Encounter Summary Created on: August 01, 2024 MEG FLACADARCI LOBO : 1950 Sex: Male Author Name [facility] [place] [facility] [place] [facility] [place] Address [address] [place] [address] Care Team Providers Care Pot Runner Name Role Phone JATINDER CABRERA Primary Care [...] PART A Sep 29, 2016 PART A [id number] [phone] JUDY WEAVER PATIENT Selected Encounter This section includes the information on record at [place] for the Encounter. Date/Time Encounter Type Encounter Description Reason Pro vider Source Jul 20, 2024 06:15 PM Inpatient Visit DAILY HOSPITALIZATION DATA IHE [...] 06:50 PM Reporting Lab: [facility] [address] Performing Lab: [facility] [address] CREATININE 0.8 mg/dL 0.7-1.2 UREA NITROGEN 31 [...] 06:50 PM Reporting Lab: [facility] [address] Performing Lab: [facility] [address] WBC 16.0 H 4.0-11.0 RBC 5.16 4.60-6.20 [...] 08:22 AM Reporting Lab: [facility] [address] Performing Lab: [facility] [address] SODIUM,URINE RANDOM <20 mmol/L Jul 20, 2024 01:00 PM [facility] OSMOLALITY,URINE Specimen Type: URINE No comment entered. Ordering Provider: SARAI GOLDEN Report Released Date/Time: Jul 20, 2024 08:22 AM Reporting Lab: [facility] [address] Performing Lab: [facility] [address] OSMOLALITY,URIN E 648 mosm/kg 500-800 Jul 20, 2024 06:45 AM [facility] BASIC METABOLIC PANEL+MG Specimen Type: PLASMA No comment entered. Ordering Provider: SARAI GOLDEN Report Released Date/Time: Jul 19, 2024 06:13 PM Reporting Lab: [facility] [address] Performing Lab: [facility] [address] CREATININE 0.8 mg/dL 0.7-1.2 UREA NITROGEN 36 [...] 06:13 PM Reporting Lab: [facility] [address] Performing Lab: [facility] [address] WBC 16.6 H 4.0-11.0 RBC 4.96 4.60-6.20 [...] 09:47 AM Reporting Lab: [facility] [address] Performing Lab: [facility] [address] OSMOLALITY,SERU M 266 mosm/kg L 276-305 Jul 19, 2024 08:57 AM [facility] BASIC METABOLIC PANEL+MG Specimen Type: PLASMA No comment entered. Ordering Provider: SARAI GOLDEN Report Released Date/Time: Jul 18, 2024 10:24 PM Reporting Lab: [facility] [address] Performing Lab: [facility] [address] CREATININE 1.0 mg/dL 0.7-1.2 UREA NITROGEN 40 [...] 10:24 PM Reporting Lab: [facility] [address] Performing Lab: [facility] [address] WBC 17.3 H 4.0-11.0 RBC 4.83 4.60-6.20 [...] 01:54 PM Reporting Lab: [facility] [address] Performing Lab: [facility] [address] PHOSPHORUS 2.9 mg/dL 2.3-4.3 Jul 17, 2024 06:55 PM [facility] BASIC METABOLIC PANEL+MG Specimen Type: PLASMA No comment entered. Ordering Provider: SARAI GOLDEN Report Released Date/Time: Jul 17, 2024 01:54 PM Reporting Lab: [facility] [address] Performing Lab: [facility] [address] CREATININE 1.2 mg/dL 0.7-1.2 UREA NITROGEN 62 [...] 04:52 PM Reporting Lab: [facility] [address] Performing Lab: [facility] [address] WBC 18.9 H 4.0-11.0 RBC 5.55 4.60-6.20 [...] 12:12 PM Reporting Lab: [facility] [address] Performing Lab: [facility] [address] ALBUMIN 4.3 g/dL 3.5-5.0 Jul 17, 2024 07:00 AM [facility] COMPREHENSIVE METABOLIC PANEL+MG Specimen Type: PLASMA No comment entered. Ordering Provider: SARAI GOLDEN Report Released Date/Time: Jul 16, 2024 04:52 PM Reporting Lab: [facility] [address] Performing Lab: [facility] [address] CREATININE 1.3 mg/dL H 0.7-1.2 UREA NITROGEN [...] 12:12 PM Reporting Lab: [facility] [address] Performing Lab: [facility] [address] LACTIC ACID 0.9 mmol/L 0.5-2.2 Jul 16, 2024 02:14 PM [facility] MRSA SURVL NARES DNA Specimen Type: NARES No comment entered. Ordering Provider: SARAI GOLDEN Report Released Date/Time: Jul 16, 2024 12:12 PM Reporting Lab: [facility] [address] Performing Lab: [facility] [address] MRSA SURVL NARES DNA NEGATIVE Negative Jul 16, 2024 02:10 PM [facility] LACTIC ACID Specimen Type: PLASMA No comment entered. Ordering Provider: SARAI GOLDEN Report Released Date/Time: Jul 16, 2024 12:12 PM Reporting Lab: [facility] [address] Performing Lab: [facility] [address] LACTIC ACID 0.9 mmol/L 0.5-2.2 Jul 16, 2024 02:08 PM [facility] COMPREHENSIVE METABOLIC PANEL+MG Specimen Type: PLASMA No comment entered. Ordering Provider: SARAI GOLDEN Report Released Date/Time: Jul 16, 2024 12:12 PM Reporting Lab: [facility] [address] Performing Lab: [facility] [address] CREATININE 2.0 mg/dL H 0.7-1.2 UREA NITROGEN [...] 12:12 PM Reporting Lab: [facility] [address] Performing Lab: [facility] [address] WBC 19.7 H 4.0-11.0 RBC 5.39 4.60-6.20 [...] 12:23 PM Reporting Lab: [facility] [address] Performing Lab: [facility] [address] PHOSPHORUS 3.0 mg/dL 2.3-4.3 Jul 10, 2024 07:16 AM [facility] BASIC METABOLIC PANEL+MG Specimen Type: PLASMA No comment entered. Ordering Provider: JUANCARLOS ECHOLS S Report Released Date/Time: Jul 09, 2024 12:23 PM Reporting Lab: [facility] [address] Performing Lab: [facility] [address] CREATININE 0.7 mg/dL 0.7-1.2 UREA NITROGEN 27 [...] 12:23 PM Reporting Lab: [facility] [address] Performing Lab: [facility] [address] WBC 18.8 H 4.0-11.0 RBC 5.08 4.60-6.20 [...] 06:18 PM Reporting Lab: [facility] [address] Performing Lab: [facility] [address] WBC 15.3 H 4.0-11.0 RBC 4.91 4.60-6.20 [...] 08:41 AM Reporting Lab: [facility] [address] Performing Lab: [facility] [address] URINE COLOR YELLOW SPECIFIC GRAVITY >1.050 H [...] 04:49 PM Reporting Lab: [facility] [address] Performing Lab: [facility] [address] WBC 17.5 H 4.0-11.0 RBC 4.88 4.60-6.20 [...] 04:49 PM Reporting Lab: [facility] [address] Performing Lab: [facility] [address] PHOSPHORUS 2.6 mg/dL 2.3-4.3 Jul 08, 2024 09:54 AM [facility] BASIC METABOLIC PANEL+MG Specimen Type: PLASMA Comment: Specimen received in Lab at: 0952 Ordering Provider: JUANCARLOS ECHOLS Report Released Date/Time: Jul 07, 2024 04:49 PM Reporting Lab: [facility] [address] Performing Lab: [facility] [address] CREATININE 0.9 mg/dL 0.7-1.2 UREA NITROGEN 26 [...] 12:26 PM Reporting Lab: [facility] [address] Performing Lab: [facility] [address] C DIFF TOX B GENE PCR NEGATIVE Negative Jul 07, 2024 07:41 AM [facility] PHOSPHORUS Specimen Type: PLASMA No comment entered. Ordering Provider: JEVON ZAZUETA Report Released Date/Time: Jul 06, 2024 03:44 PM Reporting Lab: [facility] [address] Performing Lab: [facility] [address] PHOSPHORUS 3.1 mg/dL 2.3-4.3 Jul 07, 2024 07:41 AM [facility] BASIC METABOLIC PANEL+MG Specimen Type: PLASMA No comment entered. Ordering Provider: JEVON ZAZUETA Report Released Date/Time: Jul 06, 2024 03:44 PM Reporting Lab: [facility] [address] Performing Lab: [facility] [address] CREATININE 0.9 mg/dL 0.7-1.2 UREA NITROGEN 20 [...] 03:44 PM Reporting Lab: [facility] [address] Performing Lab: [facility] [address] WBC 21.2 H 4.0-11.0 RBC 5.09 4.60-6.20 [...] 01:22 PM Reporting Lab: [facility] [address] Performing Lab: [facility] [address] WBC 18.0 H 4.0-11.0 RBC 4.83 4.60-6.20 [...] 01:22 PM Reporting Lab: [facility] [address] Performing Lab: [facility] [address] PHOSPHORUS 3.6 mg/dL 2.3-4.3 Jul 06, 2024 07:21 AM [facility] BASIC METABOLIC PANEL+MG Specimen Type: PLASMA No comment entered. Ordering Provider: JEVON ZAZUETA Report Released Date/Time: Jul 05, 2024 01:22 PM Reporting Lab: [facility] [address] Performing Lab: [facility] [address] CREATININE 0.7 mg/dL 0.7-1.2 UREA NITROGEN 12 [...] 09:39 AM Reporting Lab: [facility] [address] Performing Lab: [facility] [address] MAGNESIUM 2.0 mg/dL 1.6-2.6 Jul 05, 2024 07:17 AM [facility] PHOSPHORUS Specimen Type: PLASMA No comment entered. Ordering Provider: JUANCARLOS ECHOLS S Report Released Date/Time: Jul 04, 2024 09:39 AM Reporting Lab: [facility] [address] Performing Lab: [facility] [address] PHOSPHORUS 2.0 mg/dL L 2.3-4.3 Jul 05, 2024 07:17 AM [facility] BASIC METABOLIC PANEL+MG Specimen Type: PLASMA No comment entered. Ordering Provider: JUANCARLOS ECHOLS S Report Released Date/Time: Jul 04, 2024 09:39 AM Reporting Lab: [facility] [address] Performing Lab: [facility] [address] CREATININE 0.7 mg/dL 0.7-1.2 UREA NITROGEN 12 [...] 09:39 AM Reporting Lab: [facility] [address] Performing Lab: [facility] [address] WBC 18.3 H 4.0-11.0 RBC 4.49 L [...] 06:31 PM Reporting Lab: [facility] [address] Performing Lab: [facility] [address] PHOSPHORUS 2.8 mg/dL 2.3-4.3 Jul 04, 2024 07:17 AM [facility] BASIC METABOLIC PANEL+MG Specimen Type: PLASMA No comment entered. Ordering Provider: GABINO CAMERON Report Released Date/Time: Jul 03, 2024 06:31 PM Reporting Lab: [facility] [address] Performing Lab: [facility] [address] CREATININE 0.7 mg/dL 0.7-1.2 UREA NITROGEN 16 mg/dL 8-26 GLUCOSE 129 mg/dL H 70-100 SODIUM 137 mmol/L 136-145 POTASSIUM 3.7 mmol/L 3.5-5.1 CHLORIDE 107 mmol/L 98-107 CO2 22 mmol/L 22-29 CALCIUM 9.0 mg/dL 8.4-10.2 MAGNESIUM 1.9 mg/dL 1.6-2.6 ANION GAP 8 mmol/L 5-15 .CREAT EGFR(CKD-EPI) >90 >60 Jul 04, 2024 07:16 AM [facility] CBC Specimen Type: BLOOD No comment entered. Ordering Provider: GABINO CAMERON Report Released Date/Time: Jul 03, 2024 06:31 PM Reporting Lab: [facility] [address] Performing Lab: [facility] [address] WBC 20.6 H 4.0-11.0 RBC 4.63 4.60-6.20 [...] 06:31 PM Reporting Lab: [facility] [address] Performing Lab: [facility] [address] WBC 20.6 H 4.0-11.0 RBC 4.63 4.60-6.20 [...] 06:31 PM Reporting Lab: [facility] [address] Performing Lab: [facility] [address] BNP 292 pg/mL H <99 Jul 03, 2024 10:32 PM [facility] FINGERSTICK GLUCOSE Specimen Type: BLOOD Comment: Save Result Nurse Notified Ordering Provider: KATELYNN PERSON Report Released Date/Time: Jul 03, 2024 10:50 PM Reporting Lab: [facility] [address] Performing Lab: [facility] [address] FINGERSTICK GLUCOSE 126 mg/dL H 70-100 Jul 03, 2024 05:33 PM [facility] FINGERSTICK GLUCOSE Specimen Type: BLOOD Comment: Save Result Nurse Notified Ordering Provider: KATELYNN PERSON Report Released Date/Time: Jul 03, 2024 05:46 PM Reporting Lab: [facility] [address] Performing Lab: [facility] [address] FINGERSTICK GLUCOSE 141 mg/dL H 70-100 Jul 03, 2024 02:31 PM [facility] POC ABG/ELECTROLYTES Specimen Type: ARTERIAL BLOOD Comment: FIO2 = 97% Patient Temp: 36.0 C Sample Type = ARTERIAL Ordering Provider: MAZIN ARRDEONDO Report Released Date/Time: Jul 03, 2024 01:48 PM Reporting Lab: [facility] [address] Performing Lab: [facility] [address] POC PH 7.387 7.35-7.45 POC PCO2 34.4 [...] 01:48 PM Reporting Lab: [facility] [address] Performing Lab: [facility] [address] POC PH 7.280 L 7.35-7.45 POC PCO2 [...] 04:01 PM Reporting Lab: [facility] [address] Performing Lab: [facility] [address] URINE COLOR YELLOW SPECIFIC GRAVITY 1.031 1.003-1.03 [...] 03:59 PM Reporting Lab: [facility] [address] Performing Lab: [facility] [address] WBC 15.8 H 4.0-11.0 RBC 5.11 4.60-6.20 [...] 06:07 PM Reporting Lab: [facility] [address] Performing Lab: [facility] [address] CREATININE 0.8 mg/dL 0.7-1.2 UREA NITROGEN 13 [...] 06:07 PM Reporting Lab: [facility] [address] Performing Lab: [facility] [address] WBC 15.5 H 4.0-11.0 RBC 4.93 4.60-6.20 [...] 05:51 PM Reporting Lab: [facility] [address] Performing Lab: [facility] [address] CREATININE 0.7 mg/dL 0.7-1.2 UREA NITROGEN 16 [...] 05:51 PM Reporting Lab: [facility] [address] Performing Lab: [facility] [address] WBC 14.9 H 4.0-11.0 RBC 5.09 4.60-6.20 [...] 05:51 PM Reporting Lab: [facility] [address] Performing Lab: [facility] [address] WBC 16.9 H 4.0-11.0 RBC 5.28 4.60-6.20 HGB 16.9 g/dL 13.5-17.9 HCT 50.4 41.0-54.0 MCV 95.5 fL 80.0-100.0 MCH 32.0 pg 27.0-33.0 MCHC 33.5 g/dL 32.0-37.5 PLT 223 150-400 MPV 10.9 fL 9.1-13.0 RDW 14.0 11.5-14.5 Jun 22, 2024 06:10 PM [facility] COMPREHENSIVE METABOLIC PANEL+MG Specimen Type: PLASMA No comment entered. Ordering Provider: JEVON ZAZUETA Report Released Date/Time: Jun 22, 2024 05:51 PM Reporting Lab: [facility] [address] Performing Lab: [facility] [address] CREATININE 0.7 mg/dL 0.7-1.2 UREA NITROGEN 17 [...] >90 >60 Jun 21, 2024 06:48 PM [facility] URINALYSIS Specimen Type: URINE No comment entered. Ordering Provider: DELIA MARTINEZ Report Released Date/Time: Jun 21, 2024 05:45 PM Reporting Lab: [facility] [address] Performing Lab: [facility] [address] URINE COLOR YELLOW SPECIFIC GRAVITY 1.041 H [...] 06:07 PM Reporting Lab: [facility] [address] Performing Lab: [facility] [address] POC CREATININE 1.1 mg/dL 0.6-1.3 Jun 21, 2024 05:30 PM [facility] POC ABG/LACTATE Specimen Type: VENOUS BLOOD No comment entered. Ordering Provider: DELIA MARTINEZ Report Released Date/Time: Jun 21, 2024 06:07 PM Reporting Lab: [facility] [address] Performing Lab: [facility] [address] POC PH 7.470 H 7.31-7.41 POC PCO2 [...] 05:30 PM Reporting Lab: [facility] [address] Performing Lab: [facility] [address] .INR 1.2 H 0.8-1.1 .PT 13.9 s H 9.4-12.5 Jun 21, 2024 05:24 PM [facility] LIPASE Specimen Type: PLASMA No comment entered. Ordering Provider: DELIA MARTINEZ Report Released Date/Time: Jun 21, 2024 05:30 PM Reporting Lab: [facility] [address] Performing Lab: [facility] [address] LIPASE 32 U/L <60 Jun 21, 2024 05:24 PM [facility] EXTRA GOLD GEL TUBE Specimen Type: SERUM No comment entered. Ordering Provider: DELIA MARTINEZ Report Released Date/Time: Jun 21, 2024 05:41 PM Reporting Lab: [facility] [address] Performing Lab: [facility] [address] EXTRA GOLD GEL TUBE RECEIVED Jun 21, 2024 05:24 PM [facility] COMPREHENSIVE METABOLIC PANEL+MG Specimen Type: PLASMA No comment entered. Ordering Provider: DELIA MARTINZE Report Released Date/Time: Jun 21, 2024 05:30 PM Reporting Lab: [facility] [address] Performing Lab: [facility] [address] CREATININE 0.9 mg/dL 0.7-1.2 UREA NITROGEN 29 [...] 05:30 PM Reporting Lab: [facility] [address] Performing Lab: [facility] [address] WBC 21.3 H 4.0-11.0 RBC 5.48 4.60-6.20 [...] Source Jul 20, 2024 05:52 PM 3 [facility] Jul 20, 2024 05:50 PM 7 [facility] Jul 20, 2024 03:30 PM 98.2 58 135/74 16 98 3 [facility] Jul 20, 2024 11:48 AM 7 [facility] Jul 20, 2024 08:45 AM 98.1 66 127/62 16 99 0 JAIME LOZANO [facility] Social History: Smoking Status (Most [...] 06:15 PM CHEST 1 VIEW: FLACA WEAVER [id number] -1950 M Exm Date: JUL 18, 2024@18:15 Req Phys: LEISA GOLDEN Pat Loc: /07-18-2024@19:00 Img Loc: MAIN X-RAY Service: [facility] [address] (Case [id number] COMPLETE) CHEST 1 VIEW (RAD Detailed) CPT:46061 Proc Modifiers : PORTABLE EXAM Reason for Study: SOB Clinical History: Maxwell IS NOT under investigation for COVID-19 or is COVID-19 negative 73 yo with SOB Responsible provider name and phone number to notify for critical findings if other than user placing the order and pager listed below: User placing orders pager: [phone] LAST CREATININE 1.2 (07/17/24) Report Status: Verified Date Reported: JUL 18, 2024 Date Verified: JUL 18, 2024 Speech/Language Therapist E-Sig:/ES/CARLOS A CUNNINGHAM DO Report: EXAMINATION: CHEST 1 VIEW Reason for Study: SOB Maxwell IS NOT under investigation for COVID-19 or is COVID-19 negative 73 yo with SOB Responsible provider name and phone number to notify for critical findings if other than user placing the order and pager listed below: User placing orders pager: [phone] LAST CREATININE 1.2 (07/17/24) SOB TECHNIQUE: Single [...] Interpreting Staff: CARLOS A CUNNINGHAM DO, RADIOLOGIST (Speech/Language Therapist) /KMB CARLOS A CUNNINGHAM [facility] Jul 16, 2024 07:49 AM [facility] CT ABDOMEN/PELVIS: FLACA WEAVER [id number] -1950 M Exm Date: JUL 16, 2024@07:49 Req Phys: JATINDER CABRERA Loc: 3ES/07-17-2024@09:02 [facility] [place] Service: Unknown (Case [id number] COMPLETE) NON [place] CT ABDOMEN/PELVIS (CT Detailed) CPT:73925 Reason for Study: outside study Clinical History: [...] CENTER Jul 13, 2024 09:41 AM [facility] CT ABDOMEN/PELVIS: FLACA WEAVER [id number] -1950 M Exm Date: JUL 13, 2024@09:41 Req Phys: JATINDER CABRERA Loc: 3ES07-17-2024@09:08 Img Loc: OUTSOURCE CT Service: Unknown (Case [id number] COMPLETE) NON [facility] ABDOMEN/PELVIS (CT Detailed) CPT:63549 Reason for Study: outside study Clinical History: [...] 2 VIEWS PA AND LAT: MEGFLACA YAMIL [id number] -1950 M Exm Date: JUL 08, 2024@10:09 Req Phys: KATELYNN PERSON [facility] Loc: 2KG07-08-2024@11:49 Img Loc: MAIN X-RAY Service: [place] [address] (Case 24 COMPLETE) CHEST 2 VIEWS PA AND LAT (RAD Detailed) CPT:23876 Reason for Study: Uptrending WBC, POD 5 [...] 08, 2024 Date Verified: JUL 08, 2024 Speech/Language Therapist E-Sig: Report: CHEST 2 VIEWS PA AND [...] cardiopulmonary disease. READING PHYSICIAN: Sarbjit Vaughn M.D. -[id number] 07/08/2024 12:46 [facility] National Teleradiology Program [phone] (For Medical Practitioner Use Only) Attention Patients / Veterans: If you have questions or concerns about these test results, please contact your ordering provider or primary care team. Primary Interpreting Staff: RADIOLOGY,OUTSIDE SERVICE, Staff Physician / RADIOLOGY,OUTSIDE SERVICE [facility] Jul 08, 2024 10:[address] (AP) ABDOMEN/PELVIS W CONTRAST: MEGFLACA YAMIL [id number] -1950 M Exm Date: JUL 08, 2024@10:00 Req Phys: KATELYNN PERSON [facility] Loc: 2K/07-08-2024@12:07 Img Loc: CT IMAGING Service: [place] [address] (Case 22 COMPLETE) CT (AP) ABDOMEN/PELVIS W CONTRAST(CT Detailed) CPT:59304 Contrast Media : Non-ionic Iodinated Reason for [...] PLASMA .CREAT EGFR(CKD-E >90 Ref: >=60 Allergies: ([place] only) TERAZOSIN (Mar 13, 2015) Report Status: Verified Date Reported: JUL 08, 2024 Date Verified: JUL 08, 2024 Speech/Language Therapist E-Sig: Report: CT (AP) ABDOMEN/PELVIS W CONTRAST [...] as noted above READING PHYSICIAN: Celestino Blanc -[phone] 07/08/2024 13:04 [facility] Muluradiology Program [phone] (For Medical Practitioner Use Only) Attention Patients / Veterans: If you have questions or concerns about these test results, please contact your ordering provider or primary care team. Primary Interpreting Staff: RADIOLOGY,OUTSIDE SERVICE, Staff Physician / RADIOLOGY,OUTSIDE SERVICE [facility] Jun 22, 2024 11:49 AM ABSCESS DRAIN PLACEMENT PERITONEAL (P): FLACA WEAVER [id number] -1950 M Exm Date: JUN 22, 2024@11:49 Req Phys: ANGELA HOLDEN Loc: [facility]/06-22-2024@17:14 Img Loc: INTERVENTIONAL RADIOLOGY Service: [place] [address] (Case [id number] COMPLETE) IR PERITONEAL/RETROPERITONEAL PER(ANI Detailed) CPT:13261 Reason for Study: diverticulitis with abscess (Case 3570 COMPLETE) IR MOD SEDATION 10-22 MIN (ANI Detailed) CPT:49277 Clinical History: Maxwell IS NOT under investigation for COVID-19 or is COVID-19 negative 73 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 please place abscess drain. Contact number for responsible provider who can be reached for any questions or notifications of critical findings: [phone] n/a LAST CREATININE 0.9 (06/21/24) Report Status: Verified Date Reported: JUN 22, 2024 Date Verified: JUN 22, 2024 Speech/Language Therapist E-Sig:/ES/LISA PENDLETON MD Report: PROCEDURES: Placement of [...] Using real-time CT fluoroscopy, a 5 [employer] Wateresis catheter was advanced into the collection in [...] Primary Interpreting Staff: LISA PENDLETON MD, RADIOLOGIST (Speech/Language Therapist) /JRLISA [facility] Jun 22, 2024 11:[address] NEEDLE PLACEMENT (P): FLACA WEAVER [id number] -1950 M Exm Date: JUN 22, 2024@11:48 Req Phys: ANGELA HOLDEN Loc: [facility]06-22-2024@17:14 Im Loc: CT IMAGING Service: [place] [address] (Case [id number] COMPLETE) CT SCAN FOR NEEDLE PLACEMENT (CT Detailed) CPT:03365 Reason for Study: l pelvic abscess drain Clinical History: Report Status: Verified Date Reported: JUN 22, 2024 Date Verified: JUN 22, 2024 Speech/Language Therapist E-Sig:/ES/LISA PENDLETON MD Report: PROCEDURES: Placement of [...] Using real-time CT fluoroscopy, a 5 [place] [employer] Wateresis catheter was advanced into the collection in [...] Primary Interpreting Staff: LISA PENDLETON MD, RADIOLOGIST (Speech/Language Therapist) /JRT LISA PENDLETON [facility] Jun 21, 2024 06:[address] (AP) ABDOMEN/PELVIS (P): FLACA WEAVER [id number] -1950 M Exm Date: JUN 21, 2024@18:09 Req Phys: DELIA MARTINEZ Loc: [facility] EMERGENCY DEPT WALK-IN (Re Img Loc: CT IMAGING Service: [place] [address] (Case [id number] COMPLETE) CT (AP) ABDOMEN/PELVIS W CONTRAST(CT Detailed) CPT:34813 Contrast Media : Non-ionic Iodinated Reason for [...] PLASMA .CREAT EGFR(CKD-E >90 Ref: >=60 Allergies: ([place] only) TERAZOSIN (Mar 13, 2015) Defer to [...] 21, 2024 Date Verified: JUN 21, 2024 Speech/Language Therapist E-Sig:/ES/CARLOS A CUNNINGHAM DO Report: EXAMINATION: CT [...] Interpreting Staff: CARLOS A CUNNINGHAM DO, RADIOLOGIST (Speech/Language Therapist) /CARLOS A ROWELL [facility] [...] Reporting Lab: [facility] [CLIA# [id number]] [place] [address] Accession [UID]: [id number] [[id number]] Received: Jul 16, 2024@14:41 Collection sample: BLOOD Collection date: Jul 16, 2024 14:07 Provider: LEISA GOLDEN Comment on specimen: R AC, RECEIVED 2 BLOOD CULTURE BOTTLES Test(s) ordered: CULTURE & SUSCEPTIBILITY...... completed: Jul 22, 2024 * BACTERIOLOGY FINAL REPORT => Jul 22, 2024 13:39 TECH CODE: [id number] CULTURE RESULTS: NO GROWTH 5 DAYS Bacteriology Remark(s): THIS REPORT IS FINAL =--=--=--=--=--=--=--=--=--= --=--=--=--=--=--=--=--=--=- -=--=--=--=--=--=--=-- Performing Laboratory: Bacteriology Report Performed By: [facility] [CLIA# [id number]] [place] [address] [facility] Jul 16, 2024 01:54 PM LR MICROBIOLOGY RE PORT: Reporting Lab: [facility] [facility] [IA# [id number]] [place] [address] Accession [UID]: [id number] [[id number]] Received: Jul 16, 2024@14:41 Collection sample: BLOOD Collection date: Jul 16, 2024 13:54 Provider: LEISA GOLDEN Comment on specimen: L AC, RECEIVED 2 BLOOD CULTURE BOTTLES Test(s) ordered: CULTURE & SUSCEPTIBILITY...... completed: Jul 22, 2024 * BACTERIOLOGY FINAL REPORT => Jul 22, 2024 13:39 TECH CODE: [id number] CULTURE RESULTS: NO GROWTH 5 DAYS Bacteriology Remark(s): THIS REPORT IS FINAL =--=--=--=--=--=--=--=--=--= --=--=--=--=--=--=--=--=--=- -=--=--=--=--=--=--=-- Performing Laboratory: Bacteriology Report Performed By: [facility] [IA# [id number]] [place] [address] [facility] Jul 03, 2024 05:59 AM LR SURGICAL PATHOL OGY REPORT: LOCAL TITLE: LR SURGICAL PATHOLOGY REPORT STANDARD TITLE: PATHOLOGY REPORT DATE OF NOTE: JUL 06, 2024@10:40:48 ENTRY DATE: JUL 06, 2024@10:40:48 AUTHOR: EDUARDO PALOMARES EXP COSIGNER: URGENCY: STATUS: COMPLETED $APHDR Reporting Lab: [facility] [IA# [id number]] [place] [address] - - - - - - - [...] - PATHOLOGY REPORT Accession No. [id number] - - - - - - - [...] - PATHOLOGY REPORT Accession No. [id number] - - - - - - - [...] Second circumferential surgical margin, en face; E-F: Personal Computer Network Engineer diverticula; G: Personal Computer Network Engineer section of mesentery; H: Random containers sales representative section of additional adipose tissue [...] One colonic tissue ring, bisected transversely. [facility]: Microscopic examination performed. DIAGNOSIS: 1. Colon, sigmoid, sigmoidectomy-- - Diverticulosis with perforation and focal abscess formation 2. Colon, anastomotic rings, excision-- - Viable colonic mucosa without diagnostic abnormality /es/ EDUARDO PALOMARES MD STAFF PATHOLOGIST Signed Jul 06, 2024@10:40 Performing Laboratory: Surgical Pathology Report Performed By: [facility] [CLIA# [id number]] [place] [address] $FTR - - - - - - [...] - - MEGFLACA YAMIL STANDARD FORM 515 ID:[id number] SEX:M :1950 AGE: 73 LOC:[id number] ADM:Jun DX:DIVERTICULITIS PCP: Jatinder Cabrera /alexi/ EDUARDO PALOMARES MD STAFF PATHOLOGIST Signed: 07/06/2024 10:40 EDUARDO PALOMARES [facility] Jun 22, 2024 01:15 PM LR MICROBIOLOGY RE PORT: Reporting Lab: [facility] [CLIA# [id number]] [place] [address] Accession [UID]: [id number] [[id number]] Received: Jun 22, 2024@13:38 Collection sample: FLUID Collection date: Jun 22, 2024 13:15 Provider: ANGELA HOLDEN Comment on specimen: LLQ ABSCESS, RECEIVED IN ANAEROBIC TRANSPORT VIAL Test(s) ordered: GRAM STAIN.................... completed: Jun 22, 2024 15:03 CULTURE & SUSCEPTIBILITY...... completed: Jun 25, 2024 * BACTERIOLOGY FINAL REPORT => Jun 25, 2024 10:56 TECH CODE: [id number] GRAM STAIN: DIRECT SMEAR of specimen before [...] Performed By: [facility] [CLIA# [id number]] [place] [address] [facility] Jun 22, 2024 01:15 PM LR MICROBIOLOGY RE PORT: Reporting Lab: [facility] [CLIA# [id number]] [place] [address] Accession [UID]: [id number] [[id number]] Received: Jun 22, 2024@13:38 Collection sample: FLUID Collection date: Jun 22, 2024 13:15 Provider: ANGELA HOLDEN Comment on specimen: LLQ ABSCESS, RECEIVED IN ANAEROBIC TRANSPORT VIAL Test(s) ordered: ANAEROBIC CULTURE............. completed: Jun 28, 2024 * BACTERIOLOGY FINAL REPORT => Jun 28, 2024 10:08 TECH CODE: [id number] CULTURE RESULTS: HEAVY GROWTH MIXED ANAEROBES Comment: [...] Performed By: [facility] [CLIA# [id number]] [place] [address] [facility] Jun 21, 2024 06:12 PM LR MICROBIOLOGY RE PORT: Reporting Lab: [facility] [CLIA# [id number]] [place] [address] Accession [UID]: [id number] [[id number]] Received: Jun 21, 2024@18:12 Collection sample: BLOOD [...] Performed By: [facility] [CLIA# [id number]] [place] [address] [facility] Jun 21, 2024 06:11 PM LR MICROBIOLOGY RE PORT: Reporting Lab: [facility] [CLIA# [id number]] [place] [address] Accession [UID]: [id number] [[id number]] Received: Jun 21, 2024@18:11 Collection sample: BLOOD [...] Performed By: [facility] [CLIA# [id number]] [place] [address] [facility]
--- OUTSIDE RECORDS SUMMARY | 2024-08-01 08:04 | XMS_ITS ---
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 Date/Time Encounter Type Encounter Description Reason Pro vider Source Jul 20, 2024 11:02 PM Inpatient Visit DAILY HOSPITALIZATION DATA IHE [...] Chemi stry Order URINALYSIS URINE WC ONCE [facility] Jun 12, 2024 12:00 AM Laboratory - Chemi stry Order BNP PLASMA SP ONCE [facility] Jun 21, 2024 05:45 PM Laboratory - Blood Bank Order TYPE & SCREEN - LAB BLOOD WC [facility] Jul 03, 2024 12:00 AM Laboratory - Blood Bank Order TYPE & SCREEN - LAB BLOOD WC [facility] Jul 16, 2024 12:00 AM Laboratory - Chemi stry Order CBC BLOOD SP ONCE [facility] Jul 17, 2024 12:00 AM Laboratory - Chemi stry Order BASIC METABOLIC PANEL+MG PLASMA SP ONCE [facility] Lab Results: +/- [...] Range Comment Jul 21, 2024 10:38 AM [facility] BASIC METABOLIC PANEL+MG Specimen Type: PLASMA No comment entered. Ordering Provider: SARAI GOLDEN Report Released Date/Time: Jul 20, 2024 06:50 PM Reporting Lab: [facility] [phone] Performing Lab: [facility] [address] CREATININE 0.8 mg/dL 0.7-1.2 UREA NITROGEN 31 mg/dL H 8-26 GLUCOSE 120 mg/dL H 70-100 SODIUM 125 mmol/L L 136-145 POTASSIUM 4.4 mmol/L 3.5-5.1 CHLORIDE 100 mmol/L 98-107 CO2 17 mmol/L L 22-29 CALCIUM 9.6 mg/dL 8.4-10.2 MAGNESIUM 1.9 mg/dL 1.6-2.6 ANION GAP 8 mmol/L 5-15 .CREAT EGFR(CKD-EPI) >90 >60 Jul 21, 2024 10:38 AM [facility] CBC Specimen Type: BLOOD No comment entered. Ordering Provider: SARAI GOLDEN Report Released Date/Time: Jul 20, 2024 06:50 PM Reporting Lab: [facility] [address] Performing Lab: [facility] [phone] WBC 16.0 H 4.0-11.0 RBC 5.16 4.60-6.20 HGB 15.8 g/dL 13.5-17.9 HCT 45.5 41.0-54.0 MCV 88.2 fL 80.0-100.0 MCH 30.6 pg 27.0-33.0 MCHC 34.7 g/dL 32.0-37.5 PLT 428 H 150-400 MPV 10.8 fL 9.1-13.0 RDW 13.6 11.5-14.5 Jul 20, 2024 01:00 PM [facility] SODIUM,URINE RANDOM Specimen Type: URINE No comment entered. Ordering Provider: SARAI GOLDEN Report Released Date/Time: Jul 20, 2024 08:22 AM Reporting Lab: [facility] [phone] Performing Lab: [facility] [address] SODIUM,URINE RANDOM <20 mmol/L Jul 20, 2024 01:00 PM [facility] OSMOLALITY,URINE Specimen Type: URINE No comment entered. Ordering Provider: SARAI GOLDEN Report Released Date/Time: Jul 20, 2024 08:22 AM Reporting Lab: [facility] [address] Performing Lab: [facility] [phone] OSMOLALITY,URIN E 648 mosm/kg 500-800 Jul 20, 2024 06:45 AM [facility] BASIC METABOLIC PANEL+MG Specimen Type: PLASMA No comment entered. Ordering Provider: SARAI GOLDEN Report Released Date/Time: Jul 19, 2024 06:13 PM Reporting Lab: [facility] [phone] Performing Lab: [facility] [address] CREATININE 0.8 mg/dL 0.7-1.2 UREA NITROGEN 36 mg/dL H 8-26 GLUCOSE 111 mg/dL H 70-100 SODIUM 121 mmol/L L 136-145 POTASSIUM 4.1 mmol/L 3.5-5.1 CHLORIDE 99 mmol/L 98-107 CO2 14 mmol/L L 22-29 CALCIUM 9.5 mg/dL 8.4-10.2 MAGNESIUM 1.8 mg/dL 1.6-2.6 ANION GAP 8 mmol/L 5-15 .CREAT EGFR(CKD-EPI) >90 >60 Jul 20, 2024 06:43 AM [facility] CBC & DIFF Specimen Type: BLOOD Comment: Automated Differential Performed Ordering Provider: SARAI GOLDEN Report Released Date/Time: Jul 19, 2024 06:13 PM Reporting Lab: [facility] [phone] Performing Lab: [facility] [address] WBC 16.6 H 4.0-11.0 RBC 4.96 4.60-6.20 [...] H 0.0-0.1 Jul 20, 2024 05:30 AM [facility] OSMOLALITY,SERUM Specimen Type: SERUM No comment entered. Ordering Provider: SARAI GOLDEN Report Released Date/Time: Jul 20, 2024 09:47 AM Reporting Lab: [facility] [phone] Performing Lab: [facility] [address] OSMOLALITY,SERU M 266 mosm/kg L 276-305 Jul 19, 2024 08:57 AM [facility] BASIC METABOLIC PANEL+MG Specimen Type: PLASMA No comment entered. Ordering Provider: SARAI GOLDEN Report Released Date/Time: Jul 18, 2024 10:24 PM Reporting Lab: [facility] [address] Performing Lab: [facility] [address] CREATININE 1.0 mg/dL 0.7-1.2 UREA NITROGEN 40 mg/dL H 8-26 GLUCOSE 104 mg/dL H 70-100 SODIUM 129 mmol/L L 136-145 POTASSIUM 3.3 mmol/L L 3.5-5.1 CHLORIDE 104 mmol/L 98-107 CO2 16 mmol/L L 22-29 CALCIUM 8.0 mg/dL L 8.4-10.2 MAGNESIUM 1.7 mg/dL 1.6-2.6 ANION GAP 9 mmol/L 5-15 .CREAT EGFR(CKD-EPI) 80 >60 Jul 19, 2024 08:57 AM [facility] CBC Specimen Type: BLOOD No comment entered. Ordering Provider: SARAI GOLDEN Report Released Date/Time: Jul 18, 2024 10:24 PM Reporting Lab: [facility] [address] Performing Lab: [facility] [address] WBC 17.3 H 4.0-11.0 RBC 4.83 4.60-6.20 HGB 14.8 g/dL 13.5-17.9 HCT 42.6 41.0-54.0 MCV 88.2 fL 80.0-100.0 MCH 30.6 pg 27.0-33.0 MCHC 34.7 g/dL 32.0-37.5 PLT 456 H 150-400 MPV 10.8 fL 9.1-13.0 RDW 13.7 11.5-14.5 Jul 17, 2024 06:55 PM [facility] PHOSPHORUS Specimen Type: PLASMA No comment entered. Ordering Provider: SARAI GOLDEN Report Released Date/Time: Jul 17, 2024 01:54 PM Reporting Lab: [facility] [address] Performing Lab: [facility] [address] PHOSPHORUS 2.9 mg/dL 2.3-4.3 Jul 17, 2024 06:55 PM [facility] BASIC METABOLIC PANEL+MG Specimen Type: PLASMA No comment entered. Ordering Provider: SARAI GOLDEN Report Released Date/Time: Jul 17, 2024 01:54 PM Reporting Lab: [facility] [address] Performing Lab: [facility] [address] CREATININE 1.2 mg/dL 0.7-1.2 UREA NITROGEN 62 mg/dL H 8-26 GLUCOSE 116 mg/dL H 70-100 SODIUM 128 mmol/L L 136-145 POTASSIUM 3.8 mmol/L 3.5-5.1 CHLORIDE 100 mmol/L 98-107 CO2 16 mmol/L L 22-29 CALCIUM 9.3 mg/dL 8.4-10.2 MAGNESIUM 2.1 mg/dL 1.6-2.6 ANION GAP 12 mmol/L 5-15 .CREAT EGFR(CKD-EPI) 64 >60 Jul 17, 2024 07:00 AM [facility] CBC & DIFF Specimen Type: BLOOD Comment: Manual Differential Performed Ordering Provider: SARAI GOLDEN Report Released Date/Time: Jul 16, 2024 04:52 PM Reporting Lab: [facility] [address] Performing Lab: [facility] [address] WBC 18.9 H 4.0-11.0 RBC 5.55 4.60-6.20 [...] MORPHOLOGY PRESENT Jul 17, 2024 07:00 AM [facility] ALBUMIN Specimen Type: PLASMA No comment entered. Ordering Provider: SARAI GOLDEN Report Released Date/Time: Jul 16, 2024 12:12 PM Reporting Lab: [facility] [address] Performing Lab: [facility] [address] ALBUMIN 4.3 g/dL 3.5-5.0 Jul 17, 2024 07:00 AM [facility] COMPREHENSIVE METABOLIC PANEL+MG Specimen Type: PLASMA No comment entered. Ordering Provider: SARAI GOLDEN Report Released Date/Time: Jul 16, 2024 04:52 PM Reporting Lab: [facility] [address] Performing Lab: [facility] [address] CREATININE 1.3 mg/dL H 0.7-1.2 UREA NITROGEN [...] L >60 Jul 16, 2024 07:10 PM [facility] LACTIC ACID Specimen Type: PLASMA No comment entered. Ordering Provider: SARAI GOLDEN Report Released Date/Time: Jul 16, 2024 12:12 PM Reporting Lab: [facility] [address] Performing Lab: [facility] [address] LACTIC ACID 0.9 mmol/L 0.5-2.2 Jul 16, 2024 02:14 PM [facility] MRSA SURVL NARES DNA Specimen Type: NARES No comment entered. Ordering Provider: SARAI GOLDEN Report Released Date/Time: Jul 16, 2024 12:12 PM Reporting Lab: [facility] [address] Performing Lab: [facility] [address] MRSA SURVL NARES DNA NEGATIVE Negative Jul 16, 2024 02:10 PM [facility] LACTIC ACID Specimen Type: PLASMA No comment entered. Ordering Provider: SARAI GOLDEN Report Released Date/Time: Jul 16, 2024 12:12 PM Reporting Lab: [facility] [address] Performing Lab: [facility] [address] LACTIC ACID 0.9 mmol/L 0.5-2.2 Jul 16, 2024 02:08 PM [facility] COMPREHENSIVE METABOLIC PANEL+MG Specimen Type: PLASMA No comment entered. Ordering Provider: SARAI GOLDEN Report Released Date/Time: Jul 16, 2024 12:12 PM Reporting Lab: [facility] [address] Performing Lab: [facility] [address] CREATININE 2.0 mg/dL H 0.7-1.2 UREA NITROGEN [...] L >60 Jul 16, 2024 02:08 PM [facility] CBC & DIFF Specimen Type: BLOOD Comment: Manual Differential Performed Ordering Provider: SARAI GOLDEN Report Released Date/Time: Jul 16, 2024 12:12 PM Reporting Lab: [facility] [address] Performing Lab: [facility] [address] WBC 19.7 H 4.0-11.0 RBC 5.39 4.60-6.20 [...] MORPHOLOGY PRESENT Jul 10, 2024 07:16 AM [facility] PHOSPHORUS Specimen Type: PLASMA No comment entered. Ordering Provider: JUANCARLOS ECHOLS Report Released Date/Time: Jul 09, 2024 12:23 PM Reporting Lab: [facility] [address] Performing Lab: [facility] [address] PHOSPHORUS 3.0 mg/dL 2.3-4.3 Jul 10, 2024 07:16 AM [facility] BASIC METABOLIC PANEL+MG Specimen Type: PLASMA No comment entered. Ordering Provider: JUANCARLOS ECHOLS S Report Released Date/Time: Jul 09, 2024 12:23 PM Reporting Lab: [facility] [phone] Performing Lab: [facility] [address] CREATININE 0.7 mg/dL 0.7-1.2 UREA NITROGEN 27 mg/dL H 8-26 GLUCOSE 104 mg/dL H 70-100 SODIUM 133 mmol/L L 136-145 POTASSIUM 4.3 mmol/L 3.5-5.1 CHLORIDE 102 mmol/L 98-107 CO2 19 mmol/L L 22-29 CALCIUM 10.1 mg/dL 8.4-10.2 MAGNESIUM 1.9 mg/dL 1.6-2.6 ANION GAP 12 mmol/L 5-15 .CREAT EGFR(CKD-EPI) >90 >60 Jul 10, 2024 07:15 AM [facility] CBC Specimen Type: BLOOD No comment entered. Ordering Provider: JUANCARLOS ECHOLS Report Released Date/Time: Jul 09, 2024 12:23 PM Reporting Lab: [facility] [address] Performing Lab: [facility] [address] WBC 18.8 H 4.0-11.0 RBC 5.08 4.60-6.20 HGB 15.9 g/dL 13.5-17.9 HCT 46.8 41.0-54.0 MCV 92.1 fL 80.0-100.0 MCH 31.3 pg 27.0-33.0 MCHC 34.0 g/dL 32.0-37.5 PLT 479 H 150-400 MPV 10.2 fL 9.1-13.0 RDW 13.7 11.5-14.5 Jul 09, 2024 07:08 AM [facility] CBC Specimen Type: BLOOD No comment entered. Ordering Provider: QUYNH WEISS Report Released Date/Time: Jul 08, 2024 06:18 PM Reporting Lab: [facility] [address] Performing Lab: [facility] [address] WBC 15.3 H 4.0-11.0 RBC 4.91 4.60-6.20 HGB 15.1 g/dL 13.5-17.9 HCT 45.7 41.0-54.0 MCV 93.1 fL 80.0-100.0 MCH 30.8 pg 27.0-33.0 MCHC 33.0 g/dL 32.0-37.5 PLT 443 H 150-400 MPV 10.0 fL 9.1-13.0 RDW 13.5 11.5-14.5 Jul 08, 2024 10:50 AM [facility] URINALYSIS Specimen Type: URINE No comment entered. Ordering Provider: KATELYNN PERSON Report Released Date/Time: Jul 08, 2024 08:41 AM Reporting Lab: [facility] [phone] Performing Lab: [facility] [address] URINE COLOR YELLOW SPECIFIC GRAVITY >1.050 H [...] NEGATIVE NEGATIVE Jul 08, 2024 09:54 AM [facility] CBC Specimen Type: BLOOD Comment: Specimen received in Lab at: [id number] Ordering Provider: JUANCARLOS ECHOLS Report Released Date/Time: Jul 07, 2024 04:49 PM Reporting Lab: [facility] [address] Performing Lab: [facility] [address] WBC 17.5 H 4.0-11.0 RBC 4.88 4.60-6.20 HGB 14.9 g/dL 13.5-17.9 HCT 45.7 41.0-54.0 MCV 93.6 fL 80.0-100.0 MCH 30.5 pg 27.0-33.0 MCHC 32.6 g/dL 32.0-37.5 PLT 472 H 150-400 MPV 10.2 fL 9.1-13.0 RDW 13.7 11.5-14.5 Jul 08, 2024 09:54 AM [facility] PHOSPHORUS Specimen Type: PLASMA Comment: Specimen received in Lab at: [id number] Ordering Provider: JUANCARLOS ECHOLS Report Released Date/Time: Jul 07, 2024 04:49 PM Reporting Lab: [facility] [phone] Performing Lab: [facility] [address] PHOSPHORUS 2.6 mg/dL 2.3-4.3 Jul 08, 2024 09:54 AM [facility] BASIC METABOLIC PANEL+MG Specimen Type: PLASMA Comment: Specimen received in Lab at: 0952 Ordering Provider: JUANCARLOS ECHOLS Report Released Date/Time: Jul 07, 2024 04:49 PM Reporting Lab: [facility] [phone] Performing Lab: [facility] [address] CREATININE 0.9 mg/dL 0.7-1.2 UREA NITROGEN 26 mg/dL 8-26 GLUCOSE 128 mg/dL H 70-100 SODIUM 134 mmol/L L 136-145 POTASSIUM 3.4 mmol/L L 3.5-5.1 CHLORIDE 100 mmol/L 98-107 CO2 24 mmol/L 22-29 CALCIUM 9.8 mg/dL 8.4-10.2 MAGNESIUM 1.8 mg/dL 1.6-2.6 ANION GAP 10 mmol/L 5-15 .CREAT EGFR(CKD-EPI) >90 >60 Jul 07, 2024 02:00 PM [facility] C DIFF PANEL Specimen Type: FECES No comment entered. Ordering Provider: JEVON ZAZUETA Report Released Date/Time: Jul 07, 2024 12:26 PM Reporting Lab: [facility] [address] Performing Lab: [facility] [address] C DIFF TOX B GENE PCR NEGATIVE Negative Jul 07, 2024 07:41 AM [facility] PHOSPHORUS Specimen Type: PLASMA No comment entered. Ordering Provider: JEVON ZAZUETA Report Released Date/Time: Jul 06, 2024 03:44 PM Reporting Lab: [facility] [address] Performing Lab: [facility] [address] PHOSPHORUS 3.1 mg/dL 2.3-4.3 Jul 07, 2024 07:41 AM [facility] BASIC METABOLIC PANEL+MG Specimen Type: PLASMA No comment entered. Ordering Provider: JEVON ZAZUETA Report Released Date/Time: Jul 06, 2024 03:44 PM Reporting Lab: [facility] [address] Performing Lab: [facility] [address] CREATININE 0.9 mg/dL 0.7-1.2 UREA NITROGEN 20 mg/dL 8-26 GLUCOSE 157 mg/dL H 70-100 SODIUM 136 mmol/L 136-145 POTASSIUM 3.7 mmol/L 3.5-5.1 CHLORIDE 102 mmol/L 98-107 CO2 21 mmol/L L 22-29 CALCIUM 9.8 mg/dL 8.4-10.2 MAGNESIUM 1.9 mg/dL 1.6-2.6 ANION GAP 13 mmol/L 5-15 .CREAT EGFR(CKD-EPI) >90 >60 Jul 07, 2024 07:40 AM [facility] CBC Specimen Type: BLOOD No comment entered. Ordering Provider: JEVON ZAZUETA Report Released Date/Time: Jul 06, 2024 03:44 PM Reporting Lab: [facility] [address] Performing Lab: [facility] [address] WBC 21.2 H 4.0-11.0 RBC 5.09 4.60-6.20 HGB 15.9 g/dL 13.5-17.9 HCT 48.3 41.0-54.0 MCV 94.9 fL 80.0-100.0 MCH 31.2 pg 27.0-33.0 MCHC 32.9 g/dL 32.0-37.5 PLT 500 H 150-400 MPV 10.3 fL 9.1-13.0 RDW 13.6 11.5-14.5 Jul 06, 2024 07:21 AM [facility] CBC Specimen Type: BLOOD No comment entered. Ordering Provider: JEVON ZAZUETA Report Released Date/Time: Jul 05, 2024 01:22 PM Reporting Lab: [facility] [address] Performing Lab: [facility] [address] WBC 18.0 H 4.0-11.0 RBC 4.83 4.60-6.20 HGB 14.6 g/dL 13.5-17.9 HCT 45.5 41.0-54.0 MCV 94.2 fL 80.0-100.0 MCH 30.2 pg 27.0-33.0 MCHC 32.1 g/dL 32.0-37.5 PLT 368 150-400 MPV 10.4 fL 9.1-13.0 RDW 13.6 11.5-14.5 Jul 06, 2024 07:21 AM [facility] PHOSPHORUS Specimen Type: PLASMA No comment entered. Ordering Provider: JEVON ZAZUETA Report Released Date/Time: Jul 05, 2024 01:22 PM Reporting Lab: [facility] [phone] Performing Lab: [facility] [address] PHOSPHORUS 3.6 mg/dL 2.3-4.3 Jul 06, 2024 07:21 AM [facility] BASIC METABOLIC PANEL+MG Specimen Type: PLASMA No comment entered. Ordering Provider: JEVON ZAZUETA Report Released Date/Time: Jul 05, 2024 01:22 PM Reporting Lab: [facility] [address] Performing Lab: [facility] [address] CREATININE 0.7 mg/dL 0.7-1.2 UREA NITROGEN 12 mg/dL 8-26 GLUCOSE 108 mg/dL H 70-100 SODIUM 138 mmol/L 136-145 POTASSIUM 3.4 mmol/L L 3.5-5.1 CHLORIDE 104 mmol/L 98-107 CO2 20 mmol/L L 22-29 CALCIUM 9.3 mg/dL 8.4-10.2 MAGNESIUM 1.9 mg/dL 1.6-2.6 ANION GAP 14 mmol/L 5-15 .CREAT EGFR(CKD-EPI) >90 >60 Jul 05, 2024 07:17 AM [facility] MAGNESIUM Specimen Type: PLASMA No comment entered. Ordering Provider: JUANCARLOS ECHOLS S Report Released Date/Time: Jul 04, 2024 09:39 AM Reporting Lab: [facility] [address] Performing Lab: [facility] [address] MAGNESIUM 2.0 mg/dL 1.6-2.6 Jul 05, 2024 07:17 AM [facility] PHOSPHORUS Specimen Type: PLASMA No comment entered. Ordering Provider: JUANCARLOS ECHOLS S Report Released Date/Time: Jul 04, 2024 09:39 AM Reporting Lab: [facility] [address] Performing Lab: [facility] [address] PHOSPHORUS 2.0 mg/dL L 2.3-4.3 Jul 05, 2024 07:17 AM [facility] BASIC METABOLIC PANEL+MG Specimen Type: PLASMA No comment entered. Ordering Provider: JUANCARLOS ECHOLS S Report Released Date/Time: Jul 04, 2024 09:39 AM Reporting Lab: [facility] [address] Performing Lab: [facility] [address] CREATININE 0.7 mg/dL 0.7-1.2 UREA NITROGEN 12 mg/dL 8-26 GLUCOSE 84 mg/dL 70-100 SODIUM 135 mmol/L L 136-145 POTASSIUM 3.8 mmol/L 3.5-5.1 CHLORIDE 104 mmol/L 98-107 CO2 24 mmol/L 22-29 CALCIUM 9.3 mg/dL 8.4-10.2 MAGNESIUM 2.0 mg/dL 1.6-2.6 ANION GAP 7 mmol/L 5-15 .CREAT EGFR(CKD-EPI) >90 >60 Jul 05, 2024 07:16 AM [facility] CBC Specimen Type: BLOOD No comment entered. Ordering Provider: JUANCARLOS ECHOLS S Report Released Date/Time: Jul 04, 2024 09:39 AM Reporting Lab: [facility] [phone] Performing Lab: [facility] [address] WBC 18.3 H 4.0-11.0 RBC 4.49 L 4.60-6.20 HGB 14.1 g/dL 13.5-17.9 HCT 43.4 41.0-54.0 MCV 96.7 fL 80.0-100.0 MCH 31.4 pg 27.0-33.0 MCHC 32.5 g/dL 32.0-37.5 PLT 317 150-400 MPV 10.0 fL 9.1-13.0 RDW 13.9 11.5-14.5 Jul 04, 2024 07:17 AM [facility] BASIC METABOLIC PANEL+MG Specimen Type: PLASMA No comment entered. Ordering Provider: GABINO CAMERON Report Released Date/Time: Jul 03, 2024 06:31 PM Reporting Lab: [facility] [address] Performing Lab: [facility] [address] CREATININE 0.7 mg/dL 0.7-1.2 UREA NITROGEN 16 mg/dL 8-26 GLUCOSE 129 mg/dL H 70-100 SODIUM 137 mmol/L 136-145 POTASSIUM 3.7 mmol/L 3.5-5.1 CHLORIDE 107 mmol/L 98-107 CO2 22 mmol/L 22-29 CALCIUM 9.0 mg/dL 8.4-10.2 MAGNESIUM 1.9 mg/dL 1.6-2.6 ANION GAP 8 mmol/L 5-15 .CREAT EGFR(CKD-EPI) >90 >60 Jul 04, 2024 07:17 AM [facility] PHOSPHORUS Specimen Type: PLASMA No comment entered. Ordering Provider: GABINO CAMERON Report Released Date/Time: Jul 03, 2024 06:31 PM Reporting Lab: [facility] [address] Performing Lab: [facility] [address] PHOSPHORUS 2.8 mg/dL 2.3-4.3 Jul 04, 2024 07:16 AM [facility] CBC Specimen Type: BLOOD No comment entered. Ordering Provider: GABINO CAMERON Report Released Date/Time: Jul 03, 2024 06:31 PM Reporting Lab: [facility] [address] Performing Lab: [facility] [address] WBC 20.6 H 4.0-11.0 RBC 4.63 4.60-6.20 HGB 14.2 g/dL 13.5-17.9 HCT 43.4 41.0-54.0 MCV 93.7 fL 80.0-100.0 MCH 30.7 pg 27.0-33.0 MCHC 32.7 g/dL 32.0-37.5 PLT 329 150-400 MPV 10.4 fL 9.1-13.0 RDW 13.8 11.5-14.5 Jul 04, 2024 07:16 AM [facility] CBC & DIFF Specimen Type: BLOOD Comment: Manual Differential Performed Ordering Provider: GABINO CAMERON Report Released Date/Time: Jul 03, 2024 06:31 PM Reporting Lab: [facility] [address] Performing Lab: [facility] [address] WBC 20.6 H 4.0-11.0 RBC 4.63 4.60-6.20 [...] MORPHOLOGY PRESENT Jul 04, 2024 07:15 AM [facility] BNP Specimen Type: PLASMA No comment entered. Ordering Provider: GABINO CAMERON Report Released Date/Time: Jul 03, 2024 06:31 PM Reporting Lab: [facility] [address] Performing Lab: [facility] [address] BNP 292 pg/mL H <99 Jul 03, 2024 10:32 PM [facility] FINGERSTICK GLUCOSE Specimen Type: BLOOD Comment: Save Result Nurse Notified Ordering Provider: KATELYNN PERSON Report Released Date/Time: Jul 03, 2024 10:50 PM Reporting Lab: [facility] [address] Performing Lab: [facility] [address] FINGERSTICK GLUCOSE 126 mg/dL H 70-100 Jul 03, 2024 05:33 PM [facility] FINGERSTICK GLUCOSE Specimen Type: BLOOD Comment: Save Result Nurse Notified Ordering Provider: KATELYNN PERSON Report Released Date/Time: Jul 03, 2024 05:46 PM Reporting Lab: [facility] [address] Performing Lab: [facility] [address] FINGERSTICK GLUCOSE 141 mg/dL H 70-100 Jul 03, 2024 02:31 PM [facility] POC ABG/ELECTROLYTES Specimen Type: ARTERIAL BLOOD Comment: FIO2 = 97% Patient Temp: 36.0 C Sample Type = ARTERIAL Ordering Provider: MAZIN ARREDONDO Report Released Date/Time: Jul 03, 2024 01:48 PM Reporting Lab: [facility] [address] Performing Lab: [facility] [address] POC PH 7.387 7.35-7.45 POC PCO2 34.4 [...] H 80.0-105.0 Jul 03, 2024 01:05 PM [facility] POC ABG/ELECTROLYTES Specimen Type: ARTERIAL BLOOD Comment: FIO2 = 53% Patient Temp: 36.2 C Sample Type = ARTERIAL Ordering Provider: MAZIN ARREDONDO Report Released Date/Time: Jul 03, 2024 01:48 PM Reporting Lab: [facility] [address] Performing Lab: [facility] [address] POC PH 7.280 L 7.35-7.45 POC PCO2 [...] mm[Hg] 80.0-105.0 Jul 03, 2024 06:15 AM [facility] URINALYSIS Specimen Type: URINE No comment entered. Ordering Provider: MARYBETH POWELL Report Released Date/Time: Jun 12, 2024 04:01 PM Reporting Lab: [facility] [phone] Performing Lab: [facility] [phone] URINE COLOR YELLOW SPECIFIC GRAVITY 1.031 1.003-1.03 [...] 250 NEGATIVE Jul 03, 2024 06:13 AM [facility] CBC Specimen Type: BLOOD No comment entered. Ordering Provider: MARYBETH POWELL Report Released Date/Time: Jun 12, 2024 03:59 PM Reporting Lab: [facility] [phone] Performing Lab: [facility] [phone] WBC 15.8 H 4.0-11.0 RBC 5.11 4.60-6.20 HGB 16.1 g/dL 13.5-17.9 HCT 49.1 41.0-54.0 MCV 96.1 fL 80.0-100.0 MCH 31.5 pg 27.0-33.0 MCHC 32.8 g/dL 32.0-37.5 PLT 357 150-400 MPV 9.8 fL 9.1-13.0 RDW 13.7 11.5-14.5 Jun 24, 2024 09:50 AM [facility] BASIC METABOLIC PANEL+MG Specimen Type: PLASMA Comment: Specimen received in Lab at: [id number] Ordering Provider: JEVON ZAZUETA Report Released Date/Time: Jun 23, 2024 06:07 PM Reporting Lab: [facility] [phone] Performing Lab: [facility] [phone] CREATININE 0.8 mg/dL 0.7-1.2 UREA NITROGEN 13 mg/dL 8-26 GLUCOSE 135 mg/dL H 70-100 SODIUM 135 mmol/L L 136-145 POTASSIUM 3.6 mmol/L 3.5-5.1 CHLORIDE 103 mmol/L 98-107 CO2 24 mmol/L 22-29 CALCIUM 9.2 mg/dL 8.4-10.2 MAGNESIUM 1.9 mg/dL 1.6-2.6 ANION GAP 8 mmol/L 5-15 .CREAT EGFR(CKD-EPI) >90 >60 Jun 24, 2024 09:50 AM [facility] CBC Specimen Type: BLOOD Comment: Specimen received in Lab at: [id number] Ordering Provider: JEVON ZAZUETA Report Released Date/Time: Jun 23, 2024 06:07 PM Reporting Lab: [facility] [phone] Performing Lab: [facility] [phone] WBC 15.5 H 4.0-11.0 RBC 4.93 4.60-6.20 HGB 15.2 g/dL 13.5-17.9 HCT 46.5 41.0-54.0 MCV 94.3 fL 80.0-100.0 MCH 30.8 pg 27.0-33.0 MCHC 32.7 g/dL 32.0-37.5 PLT 223 150-400 MPV 11.4 fL 9.1-13.0 RDW 13.9 11.5-14.5 Jun 23, 2024 07:52 AM [facility] COMPREHENSIVE METABOLIC PANEL+MG Specimen Type: PLASMA No comment entered. Ordering Provider: JEVON ZAZUETA Report Released Date/Time: Jun 22, 2024 05:51 PM Reporting Lab: [facility] [phone] Performing Lab: [facility] [phone] CREATININE 0.7 mg/dL 0.7-1.2 UREA NITROGEN 16 [...] >90 >60 Jun 23, 2024 07:52 AM [facility] CBC & DIFF Specimen Type: BLOOD Comment: Automated Differential Performed Ordering Provider: JEVON ZAZUETA Report Released Date/Time: Jun 22, 2024 05:51 PM Reporting Lab: [facility] [phone] Performing Lab: [facility] [phone] WBC 14.9 H 4.0-11.0 RBC 5.09 4.60-6.20 [...] 0.1 0.0-0.1 Jun 22, 2024 06:10 PM [facility] CBC Specimen Type: BLOOD No comment entered. Ordering Provider: JEVON ZAZUETA Report Released Date/Time: Jun 22, 2024 05:51 PM Reporting Lab: [facility] [phone] Performing Lab: [facility] [phone] WBC 16.9 H 4.0-11.0 RBC 5.28 4.60-6.20 HGB 16.9 g/dL 13.5-17.9 HCT 50.4 41.0-54.0 MCV 95.5 fL 80.0-100.0 MCH 32.0 pg 27.0-33.0 MCHC 33.5 g/dL 32.0-37.5 PLT 223 150-400 MPV 10.9 fL 9.1-13.0 RDW 14.0 11.5-14.5 Jun 22, 2024 06:10 PM [facility] COMPREHENSIVE METABOLIC PANEL+MG Specimen Type: PLASMA No comment entered. Ordering Provider: JEVON ZAZUETA Report Released Date/Time: Jun 22, 2024 05:51 PM Reporting Lab: [facility] [address] Performing Lab: [facility] [address] CREATININE 0.7 mg/dL 0.7-1.2 UREA NITROGEN 17 [...] >90 >60 Jun 21, 2024 06:48 PM [facility] URINALYSIS Specimen Type: URINE No comment entered. Ordering Provider: DELIA MARTINEZ Report Released Date/Time: Jun 21, 2024 05:45 PM Reporting Lab: [facility] [address] Performing Lab: [facility] [address] URINE COLOR YELLOW SPECIFIC GRAVITY 1.041 H [...] 500 NEGATIVE Jun 21, 2024 05:34 PM [facility] POC CREATININE Specimen Type: BLOOD No comment entered. Ordering Provider: DELIA MARTINEZ Report Released Date/Time: Jun 21, 2024 06:07 PM Reporting Lab: [facility] [address] Performing Lab: [facility] [address] POC CREATININE 1.1 mg/dL 0.6-1.3 Jun 21, 2024 05:30 PM [facility] POC ABG/LACTATE Specimen Type: VENOUS BLOOD No comment entered. Ordering Provider: DELIA MARTINEZ Report Released Date/Time: Jun 21, 2024 06:07 PM Reporting Lab: [facility] [address] Performing Lab: [facility] [address] POC PH 7.470 H 7.31-7.41 POC PCO2 31.2 mm[Hg] L 41.00-51 .0 0 POC PO2 46 mm[Hg] H 35.0-40.0 POC TCO2 24 mmol/L 24.0-29.0 POC HCO3 22.7 mmol/L L 23.0-28.0 POC BE ECT -1 mmol/L POC SO2 85 H 70-75 POC LACTATE 1.85 mmol/L 0.90-1.70 Jun 21, 2024 05:24 PM [facility] PROTHROMBIN TIME/INR Specimen Type: PLASMA No comment entered. Ordering Provider: DELIA MARTINEZ Report Released Date/Time: Jun 21, 2024 05:30 PM Reporting Lab: [facility] [address] Performing Lab: [facility] [address] .INR 1.2 H 0.8-1.1 .PT 13.9 s H 9.4-12.5 Jun 21, 2024 05:24 PM [facility] LIPASE Specimen Type: PLASMA No comment entered. Ordering Provider: DELIA MARTINEZ Report Released Date/Time: Jun 21, 2024 05:30 PM Reporting Lab: [facility] [address] Performing Lab: [facility] [address] LIPASE 32 U/L <60 Jun 21, 2024 05:24 PM [facility] EXTRA GOLD GEL TUBE Specimen Type: SERUM No comment entered. Ordering Provider: DELIA MARTINEZ Report Released Date/Time: Jun 21, 2024 05:41 PM Reporting Lab: [facility] [address] Performing Lab: [facility] [address] EXTRA GOLD GEL TUBE RECEIVED Jun 21, 2024 05:24 PM [facility] COMPREHENSIVE METABOLIC PANEL+MG Specimen Type: PLASMA No comment entered. Ordering Provider: DELIA MARTINEZ Report Released Date/Time: Jun 21, 2024 05:30 PM Reporting Lab: [facility] [address] Performing Lab: [facility] [address] CREATININE 0.9 mg/dL 0.7-1.2 UREA NITROGEN 29 [...] mg/dL <0.5 Jun 21, 2024 05:24 PM [facility] CBC & DIFF Specimen Type: BLOOD Comment: Manual Differential Performed Ordering Provider: DELIA MARTINEZ Report Released Date/Time: Jun 21, 2024 05:30 PM Reporting Lab: [facility] [address] Performing Lab: [facility] [address] WBC 21.3 H 4.0-11.0 RBC 5.48 4.60-6.20 [...] Source Jul 20, 2024 05:52 PM 3 [facility] Jul 20, 2024 05:50 PM 7 [facility] Jul 20, 2024 03:30 PM 98.2 58 135/74 16 98 3 [facility] Jul 20, 2024 11:48 AM 7 [facility] Jul 20, 2024 08:45 AM 98.1 66 127/62 16 99 0 JAIME LOZANO [facility] Social History: Smoking Status (Most [...] 15, 2024 08:30 AM VA-TOBACCO [facility] YRS OR MORE [facility] May 06, 2023 11:30 AM VA-TOBACCO FORMER USER [facility] May 06, 2023 11:30 [...] 06:15 PM CHEST 1 VIEW: FLACA WEAVER [id number] -1950 M Exm Date: JUL 18, 2024@18:15 Req Phys: LEISA GOLDEN Pat Loc: /07-18-2024@19:00 Img Loc: MAIN X-RAY Service: [place] [address] (Case [id number] COMPLETE) CHEST 1 VIEW (RAD Detailed) CPT:18773 Proc Modifiers : PORTABLE EXAM Reason for Study: SOB Clinical History: [place] IS NOT under investigation for COVID-19 or is COVID-19 negative 73 yo with SOB Responsible provider name and phone number to notify for critical findings if other than user placing the order and pager listed below: User placing orders pager: [phone] LAST CREATININE 1.2 (07/17/24) Report Status: Verified Date Reported: JUL 18, 2024 Date Verified: JUL 18, 2024 Auditor/Quality E-Sig:/ES/CARLOS A CUNNINGHAM DO Report: EXAMINATION: CHEST 1 VIEW Reason for Study: SOB [place] IS NOT under investigation for COVID-19 or is COVID-19 negative 73 yo with SOB Responsible provider name and phone number to notify for critical findings if other than user placing the order and pager listed below: User placing orders pager: [phone] LAST CREATININE 1.2 (07/17/24) SOB TECHNIQUE: Single [...] Interpreting Staff: CARLOS A CUNNINGHAM DO, RADIOLOGIST (Auditor/Quality) /KMB CARLOS A CUNNINGHAM [facility] Jul 16, 2024 07:49 AM [facility] CT ABDOMEN/PELVIS: FLACA WEAVER [id number] -1950 M Exm Date: JUL 16, 2024@07:49 Req Phys: JATINDER CABRERA Loc: 3ES/07-17-2024@09:02 [facility] [place] Loc: OUTSOURCE CT Service: Unknown (Case [id number] COMPLETE) NON [place] CT ABDOMEN/PELVIS (CT Detailed) CPT:88704 Reason for Study: outside study Clinical History: [...] / *ELECTRONICALLY FILED* [facility] Jul 13, 2024 09:41 AM [facility] CT ABDOMEN/PELVIS: FLACA WEAVER [id number] -1950 M Exm Date: JUL 13, 2024@09:41 Req Phys: JATINDER CABRERA Loc: 3ES07-17-2024@09:08 Img Loc: OUTSOURCE CT Service: Unknown (Case [id number] COMPLETE) NON [facility] ABDOMEN/PELVIS (CT Detailed) CPT:30542 Reason for Study: outside study Clinical History: [...] / *ELECTRONICALLY FILED* [facility] Jul 08, 2024 10:09 AM CHEST 2 VIEWS PA AND LAT: MEGFLACA YAMIL [id number] -1950 M Exm Date: JUL 08, 2024@10:09 Req Phys: KATELYNN PERSON [facility] Loc: 2KG07-08-2024@11:49 Img Loc: MAIN X-RAY Service: [place] [address] (Case 24 COMPLETE) CHEST 2 VIEWS PA AND LAT (RAD Detailed) CPT:83027 Reason for Study: Uptrending WBC, POD 5 [...] 08, 2024 Date Verified: JUL 08, 2024 Auditor/Quality E-Sig: Report: CHEST 2 VIEWS PA AND LAT HISTORY: Uptrending WBC, POD 5 COMPARISON: CT chest 11/12/2022 TECHNIQUE: Frontal and lateral views of the chest, submitted to the [place] National Teleradiology Program (NTP) for interpretation. FINDINGS: Lungs: Clear. No focal consolidation. No pulmonary edema. Pleura: No pleural effusion or pneumothorax. Mediastinum: Normal size and contour. Bones: Unremarkable. Impression: No acute cardiopulmonary disease. READING PHYSICIAN: Sarbjit Vaughn M.D. -[id number] 07/08/2024 12:[address] [facility] National Teleradiology Program [phone] (For Medical Practitioner Use Only) Attention Patients / Veterans: If you have questions or concerns about these test results, please contact your ordering provider or primary care team. Primary Interpreting Staff: RADIOLOGY,OUTSIDE SERVICE, Staff Physician / RADIOLOGY,OUTSIDE SERVICE [facility] Jul 08, 2024 10:[address] (AP) ABDOMEN/PELVIS W CONTRAST: MEGFLACA YAMIL [id number] -1950 M Exm Date: JUL 08, 2024@10:00 Req Phys: KATELYNN PERSON [facility] Loc: 2K/07-08-2024@12:07 Img Loc: CT IMAGING Service: [place] [address] (Case 22 COMPLETE) CT (AP) ABDOMEN/PELVIS W CONTRAST(CT Detailed) CPT:09436 Contrast Media : Non-ionic Iodinated Reason for [...] PLASMA .CREAT EGFR(CKD-E >90 Ref: >=60 Allergies: ([place] only) TERAZOSIN (Mar 13, 2015) Report Status: Verified Date Reported: JUL 08, 2024 Date Verified: JUL 08, 2024 Auditor/Quality E-Sig: Report: CT (AP) ABDOMEN/PELVIS W CONTRAST HISTORY: POD 5, Uptrending WBC - Concern for Abscess/other infection COMPARISON: June 21, 2024 TECHNIQUE: CT abdomen and pelvis was performed after intravenous contrast. Axial, sagittal and coronal reformatted images. The study was performed at the local [place] facility and images were sent to the [place] National Teleradiology Program (NTP) for interpretation. Number [...] as noted above READING PHYSICIAN: Celestino Blanc -[id number] 07/08/2024 13:[address] [facility] Specialized Techradiology Program [phone] (For Medical Practitioner Use Only) Attention Patients / Veterans: If you have questions or concerns about these test results, please contact your ordering provider or primary care team. Primary Interpreting Staff: RADIOLOGY,OUTSIDE SERVICE, Staff Physician / RADIOLOGY,OUTSIDE SERVICE [facility] Jun 22, 2024 11:49 AM ABSCESS DRAIN PLACEMENT PERITONEAL (P): FLACA WEAVER [id number] -1950 M Exm Date: JUN 22, 2024@11:49 Req Phys: ANGELA HOLDEN Loc: [facility]/06-22-2024@17:14 Img Loc: INTERVENTIONAL RADIOLOGY Service: [place] [address] (Case [id number] COMPLETE) IR PERITONEAL/RETROPERITONEAL PER(ANI Detailed) CPT:27808 Reason for Study: diverticulitis with abscess (Case 3570 COMPLETE) IR MOD SEDATION 10-22 MIN (ANI Detailed) CPT:49102 Clinical History: [place] IS NOT under investigation for COVID-19 or is COVID-19 negative 73 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 please place abscess drain. Contact number for responsible provider who can be reached for any questions or notifications of critical findings: [phone] n/a LAST CREATININE 0.9 (06/21/24) Report Status: Verified Date Reported: JUN 22, 2024 Date Verified: JUN 22, 2024 Auditor/Quality E-Sig:/ES/LISA PENDLETON MD Report: PROCEDURES: Placement of [...] anesthesia. Using real-time CT fluoroscopy, a 5 Sammarinese Fixationalesis catheter was advanced into the collection in the left pelvis. A wire was coiled in the collection. The tract into the collection was dilated to accommodate the 12 Sammarinese locking pigtail drainage catheter. There was return [...] Primary Interpreting Staff: LISA PENDLETON MD, RADIOLOGIST (Auditor/Quality) /JRLISA [facility] Jun 22, 2024 11:[address] NEEDLE PLACEMENT (P): FLACA WEAVER [id number] -1950 M Exm Date: JUN 22, 2024@11:48 Req Phys: ANGELA HOLDEN Loc: [facility]06-22-2024@17:14 Im Loc: CT IMAGING Service: [place] [address] (Case [id number] COMPLETE) CT SCAN FOR NEEDLE PLACEMENT (CT Detailed) CPT:37784 Reason for Study: l pelvic abscess drain Clinical History: Report Status: Verified Date Reported: JUN 22, 2024 Date Verified: JUN 22, 2024 Auditor/Quality E-Sig:/ES/LISA PENDLETON MD Report: PROCEDURES: Placement of [...] anesthesia. Using real-time CT fluoroscopy, a 5 Sammarinese Fixationalesis catheter was advanced into the collection in the left pelvis. A wire was coiled in the collection. The tract into the collection was dilated to accommodate the 12 Sammarinese locking pigtail drainage catheter. There was return [...] Primary Interpreting Staff: LISA PENDLETON MD, RADIOLOGIST (Auditor/Quality) /JRT LISA PENDLETON [facility] Jun 21, 2024 06:[address] (AP) ABDOMEN/PELVIS (P): FLACA WEAVER [id number] -1950 M Exm Date: JUN 21, 2024@18:09 Req Phys: DELIA MARTINEZ Loc: [facility] EMERGENCY DEPT WALK-IN (Re Img Loc: CT IMAGING Service: [place] [address] (Case [id number] COMPLETE) CT (AP) ABDOMEN/PELVIS W CONTRAST(CT Detailed) CPT:80173 Contrast Media : Non-ionic Iodinated Reason for [...] PLASMA .CREAT EGFR(CKD-E >90 Ref: >=60 Allergies: ([place] only) TERAZOSIN (Mar 13, 2015) Defer to [...] 21, 2024 Date Verified: JUN 21, 2024 Auditor/Quality E-Sig:/ES/CARLOS A CUNNINGHAM DO Report: EXAMINATION: CT [...] Interpreting Staff: CARLOS A CUNNINGHAM DO, RADIOLOGIST (Auditor/Quality) /CARLOS A ROWELL [facility] Pathology Reports: +/- [...] PM LR MICROBIOLOGY RE PORT: Reporting Lab: [facility] [CLIA# [id number]] [place] [address] Accession [UID]: [id number] [[id number]] Received: Jul 16, 2024@14:41 Collection sample: BLOOD Collection date: Jul 16, 2024 14:07 Provider: LEISA GOLDEN Comment on specimen: R AC, RECEIVED 2 BLOOD CULTURE BOTTLES Test(s) ordered: CULTURE & SUSCEPTIBILITY...... completed: Jul 22, 2024 * BACTERIOLOGY FINAL REPORT => Jul 22, 2024 13:39 TECH CODE: [id number] CULTURE RESULTS: NO GROWTH 5 DAYS Bacteriology Remark(s): THIS REPORT IS FINAL =--=--=--=--=--=--=--=--=--= --=--=--=--=--=--=--=--=--=- -=--=--=--=--=--=--=-- Performing Laboratory: Bacteriology Report Performed By: [facility] [CLIA# [id number]] [place] [address] [facility] Jul 16, 2024 01:54 PM LR MICROBIOLOGY RE PORT: Reporting Lab: [facility] [IA# [id number]] [place] [address] Accession [UID]: [id number] [[id number]] Received: Jul 16, 2024@14:41 Collection sample: BLOOD Collection date: Jul 16, 2024 13:54 Provider: LEISA GOLDEN Comment on specimen: L AC, RECEIVED 2 BLOOD CULTURE BOTTLES Test(s) ordered: CULTURE & SUSCEPTIBILITY...... completed: Jul 22, 2024 * BACTERIOLOGY FINAL REPORT => Jul 22, 2024 13:39 TECH CODE: [id number] CULTURE RESULTS: NO GROWTH 5 DAYS Bacteriology Remark(s): THIS REPORT IS FINAL =--=--=--=--=--=--=--=--=--= --=--=--=--=--=--=--=--=--=- -=--=--=--=--=--=--=-- Performing Laboratory: Bacteriology Report Performed By: [facility] [IA# [id number]] [place] [address] [facility] Jul 03, 2024 05:59 AM LR SURGICAL PATHOL OGY REPORT: LOCAL TITLE: LR SURGICAL PATHOLOGY REPORT STANDARD TITLE: PATHOLOGY REPORT DATE OF NOTE: JUL 06, 2024@10:40:48 ENTRY DATE: JUL 06, 2024@10:40:48 AUTHOR: EDUARDO PALOMARES EXP COSIGNER: URGENCY: STATUS: COMPLETED $APHDR Reporting Lab: [facility] [IA# [id number]] [place] [address] - - - - - - - [...] - PATHOLOGY REPORT Accession No. [id number] - - - - - - - [...] - - - POSTOPERATIVE DIAGNOSIS: Diverticulitis Surgeon/physician: EWNCESLAO ARREDONDO MD Attending Surgeon: Wenceslao Arredondo MD =-=-=-=-=-=-=-=-=-=-=-=-=-=- =-=-=-=-=-=-=-=-=-=-=-=-=-=- =-=-=-=-=-=-=-=-=-=-=-= - - - - - - - - - - - - - - - - - - - - - - - - - - - - - - - - - - - - - - - - PATHOLOGY REPORT Accession No. [id number] - - - - - - - [...] Second circumferential surgical margin, en face; E-F: Ship Officer diverticula; G: Ship Officer section of mesentery; H: Random customer relations representative section of additional adipose tissue [...] One colonic tissue ring, bisected transversely. [facility]: Microscopic examination performed. DIAGNOSIS: 1. Colon, sigmoid, sigmoidectomy-- - Diverticulosis with perforation and focal abscess formation 2. Colon, anastomotic rings, excision-- - Viable colonic mucosa without diagnostic abnormality /es/ EDUARDO PALOMARES MD STAFF PATHOLOGIST Signed Jul 06, 2024@10:40 Performing Laboratory: Surgical Pathology Report Performed By: [facility] [CLIA# [id number]] [place] [address] $FTR - - - - - - [...] - - MEGFLACA YAMIL STANDARD FORM 515 ID:[id number] SEX:M :1950 AGE: 73 LOC:94141 ADM:Jun DX:DIVERTICULITIS PCP: Jatinder Cabrera /alexi/ EDUARDO PALOMARES MD STAFF PATHOLOGIST Signed: 07/06/2024 10:40 EDUARDO PALOMARES [facility] Jun 22, 2024 01:15 PM LR MICROBIOLOGY RE PORT: Reporting Lab: [facility] [CLIA# [id number]] [place] [address] Accession [UID]: [id number] [[id number]] Received: Jun 22, 2024@13:38 Collection sample: FLUID Collection date: Jun 22, 2024 13:15 Provider: ANGELA HOLDEN Comment on specimen: LLQ ABSCESS, RECEIVED IN ANAEROBIC TRANSPORT VIAL Test(s) ordered: GRAM STAIN.................... completed: Jun 22, 2024 15:03 CULTURE & SUSCEPTIBILITY...... completed: Jun 25, 2024 * BACTERIOLOGY FINAL REPORT => Jun 25, 2024 10:56 TECH CODE: [id number] GRAM STAIN: DIRECT SMEAR of specimen before [...] -=--=--=--=--=--=--=-- Performing Laboratory: Bacteriology Report Performed By: [facility] [CLIA# [id number]] [place] [address] [facility] Jun 22, 2024 01:15 PM LR MICROBIOLOGY RE PORT: Reporting Lab: [facility] [CLIA# [id number]] [place] [address] Accession [UID]: [id number] [[id number]] Received: Jun 22, 2024@13:38 Collection sample: FLUID Collection date: Jun 22, 2024 13:15 Provider: ANGELA HOLDEN Comment on specimen: LLQ ABSCESS, RECEIVED IN ANAEROBIC TRANSPORT VIAL Test(s) ordered: ANAEROBIC CULTURE............. completed: Jun 28, 2024 * BACTERIOLOGY FINAL REPORT => Jun 28, 2024 10:08 TECH CODE: 40400 CULTURE RESULTS: HEAVY GROWTH MIXED ANAEROBES Comment: including the followin+ Bacteroides fragilis 4+ Bacteroides vulgatus 4+ Clostridium innocuum Beta-lactamase negative 4+ Bacteroides caccae 4+ Parvimonas micra 4+ Bacteroides uniformis 4+ Gemella morbillorum 4+ anaerobic small, Gram Positive Rods 4+ Bacteroides thetaiotaomicron Standard workup is now complete. Bacteriology Remark(s): THIS REPORT IS FINAL =--=--=--=--=--=--=--=--=--= --=--=--=--=--=--=--=--=--=- -=--=--=--=--=--=--=-- Performing Laboratory: Bacteriology Report Performed By: [facility] [CLIA# [id number]] [place] [address] [facility] Jun 21, 2024 06:12 PM LR MICROBIOLOGY RE PORT: Reporting Lab: [facility] [CLIA# [id number]] [place] [address] Accession [UID]: [id number] [[id number]] Received: Jun 21, 2024@18:12 Collection sample: BLOOD [...] -=--=--=--=--=--=--=-- Performing Laboratory: Bacteriology Report Performed By: [facility] [CLIA# [id number]] [place] [address] [facility] Jun 21, 2024 06:11 PM LR MICROBIOLOGY RE PORT: Reporting Lab: [facility] [CLIA# [id number]] [place] [address] Accession [UID]: [id number] [[id number]] Received: Jun 21, 2024@18:11 Collection sample: BLOOD [...] -=--=--=--=--=--=--=-- Performing Laboratory: Bacteriology Report Performed By: [facility] [CLIA# [id number]] [place] [address] [facility]
[2024-08-01 08:22] LABS: Bilirubin Urine Negative (Negative); Blood Urine Negative (Negative); Color Urine Yellow (Yellow); Glucose Urine 2+ (Negative); Ketones Urine Negative (Negative); Leukocyte Esterase Urine Negative (Negative); Nitrite Urine Negative (Negative); Protein Urine Negative (Negative); Specific Gravity Urine 1.015 (1.000-1.030); Urobilinogen Urine 0.2 (0.2-1.0); pH Urine 5.5 (5.0-8.5)
[2024-08-01 08:28] LABS: Amphetamine Screen Urine Negative (Negative); Barbiturate Screen Urine Negative (Negative); Benzodiazepines Screen Urine Negative (Negative); Cannabinoid Screen Urine POSITIVE (Negative); Cocaine Screen Urine Negative (Negative); Methadone Screen Urine Negative (Negative); Methamphetamines Screen Urine Negative (Negative); Opiate Screen Urine Negative (Negative); Oxycodone Screen Urine POSITIVE (Negative); Phencyclidine Screen Urine Negative (Negative); Tricyclic Antidepressant Urine Negative (Negative)
[2024-08-01 08:39] LABS: Appearance Urine Slightly Cloudy (Clear)
[2024-08-01 08:46] LABS: Bacteria Urine Few; Fine Granular Casts Urine Few; Hyaline Casts Urine Few (None-Few); RBC Urine 0-2 (0-2); Squamous Epithelial Cell Urine Moderate (None-Few); WBC Urine 0-2 (0-5)
== END 2024-08-01 09:49 | disposition home or self-care (01) ==
PROVIDERS: Emergency Provider Family Medicine
DX: R11.0 Nausea (principal)
CPT/HCPCS: 36415; 80053; 80306; 81001; 81003; 83605; 83690; 85025; 86140; 87086; 87186; 96361; 96374; 96375; 99283; 99284; J2405; J7030

== ENCOUNTER 2024-08-03 19:48 | Observation (INO) | payer OTHER, SELFPAY ==
[2024-08-03 20:01] VITALS: BP 140/99; PULSE 64; RESP 18; TEMP 36.3; O2SAT 99
--- NOTE | 2024-08-03 20:41 | ED.GENADULT ---
HPI - General Adult General Date Seen: 08/03/24 Chief complaint: Nausea/Vomiting Stated complaint: diverticulitis Time Seen by Provider: 08/03/24 20:23 History of Present Illness HPI narrative: 73-year-old male returning to the ER today for nausea and vomiting. He was seen in the ER here on the overnight shift 2 days ago. Per that note he had had nausea for about a month or so. His record is a bit more complicated. 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 He was initially seen here in the ER [facility] and diagnosed with the abscess and fistula and subsequently transferred to the [facility]. He had a very complicated course at the [facility] that included IR drainage x2, and ultimately he underwent colectomy on 07/03. They placed a colostomy. He had been having trouble with nausea throughout his entire course of diverticulitis for the past several months. I saw him here in the ER on 07/13 for potential complications after his surgery. Our workup showed a white count of 17, otherwise normal labs. Normal urinalysis. CT scan showed expected postsurgical findings, no evidence for an anastomotic leak or recurrent abscess but he did have some persistent (markedly improved) inflammatory changes in his pelvis. He also had a small parastomal hernia without evidence for upstream obstruction. Eighteen came back to the ER on 07/16 because of ongoing nausea, weakness, weight loss, liquidy stools. Labs showed hyponatremia with sodium 123. Venous lactic was elevated at 3.9 but improved 1.6 with after L of fluids. He was also started on IV antibiotics (Zosyn and vanco). Transferred back for hospitalization at the [facility]. He came back to the ER 2 nights ago with concern for ongoing nausea. Labs showed a sodium of 128, venous lactic was 2.8. White count [id number]. Given a prescription for Zofran. The patient said he wanted to get back to the [facility] for follow-up. Ultimately he did not have a CT. Urine culture today came back positive for 80,000 colony-forming units for Pseudomonas. Sensitive to cefepime, ceftazidime, ciprofloxacin, imipenem, levofloxacin, tobramycin, Piperacillins/tazobactam He said he has came back to the ER today because he just feels nauseous, weak, his abdominal pain is increasing. He feels like he needs to be back in the hospital at the [facility]. He already called them tonight and they told him that they have space for him. He has had chronic nausea ever since he was in the hospital with his diverticulitis the 1st time but has been worse for the past few days. He is also having uptick in his abdominal pain for the past couple of days. He has been taking some sort of nausea medicine (possibly Zofran) and oxycodone for symptoms. They are not really helping. He is 89 will do eat or drink very much. He does not think he is running a fever. He is having liquidy greenish output from his ostomy but that is been similar to since he had his surgery. He is not sure if he urinated today or not. He says he was called and told that he has an infection in his bladder. He is not on any antibiotics for it yet. Related Data Home Medications ?Medication ?Instructions ?Recorded ?Confirmed aspirin 81 mg tablet,delayed 81 mg PO DAILY 09/04/22 08/01/24 release (Adult Aspirin Regimen) nitroglycerin 0.4 mg sublingual 0.4 mg sublingual Q5M PRN 09/13/22 08/01/24 tablet Previous Rx's ?Medication ?Instructions ?Recorded atorvastatin 40 mg tablet 40 mg PO DAILY #90 tabs 09/13/22 dicyclomine 10 mg capsule 10 mg PO BID PRN abd pain #60 caps 09/13/22 empagliflozin 25 mg tablet 12.5 mg (1/2 x 25 mg) PO DAILY #45 09/13/22 tabs furosemide 20 mg tablet 20 mg PO DAILY #90 tabs 09/13/22 isosorbide mononitrate 30 mg 30 mg PO QDAY #90 tabs 09/13/22 tablet,extended release 24 hr lisinopril 10 0.5 tab PO DAILY #45 tabs 09/13/22 mg-hydrochlorothiazide 12.5 mg tablet ondansetron 4 mg disintegrating 4 mg PO Q6H PRN nausea and 09/13/22 tablet vomiting #60 tabs spironolactone 25 mg tablet 12.5 mg (1/2 x 25 mg) PO DAILY #45 09/13/22 tabs ondansetron HCl 4 mg tablet 4 mg PO Q6H #20 tabs 08/01/24 Allergies Allergy/AdvReac Type Severity Reaction Status Date / Time terazosin Allergy Unknown Verified 08/03/24 21:42 [facility] Medical History Chronic constipation ?K59.09 - Other constipation (ICD-10) Pancreatic cyst ?K86.2 - Cyst of pancreas (ICD-10) Infarction of kidney ?N28.0 - Ischemia and infarction of kidney (ICD-10) Hiatal hernia ?K44.9 - Diaphragmatic hernia without obstruction or gangrene (ICD-10) Multiple lung nodules ?R91.8 - Other nonspecific abnormal finding of lung field (ICD-10) BPH (benign prostatic hyperplasia) ?N40.0 - Benign prostatic hyperplasia without lower urinary tract symptoms (ICD-10) Adenoma of left adrenal gland ?D35.02 - Benign neoplasm of left adrenal gland (ICD-10) History of kidney stones ?Z87.442 - Personal history of urinary calculi (ICD-10) CHF (congestive heart failure) ?I50.9 - Heart failure, unspecified (ICD-10) Edema ?R60.9 - Edema, unspecified (ICD-10) IBS (irritable bowel syndrome) ?K58.9 - Irritable bowel syndrome without diarrhea (ICD-10) CAD (coronary artery disease) ?I25.10 - Atherosclerotic heart disease of [place] coronary artery without angina pectoris (ICD-10) Obstructive sleep apnea syndrome ?G47.33 - Obstructive sleep apnea (adult) (pediatric) (ICD-10) Neck pain ?M54.2 - Cervicalgia (ICD-10) Impulse control disorder ?F63.9 - Impulse disorder, unspecified (ICD-10) Hypertension ?I10 - Essential (primary) hypertension (ICD-10) Hyperlipidemia ?E78.5 - Hyperlipidemia, unspecified (ICD-10) History of vitamin D deficiency ?Z86.39 - Personal history of other endocrine, nutritional and metabolic disease (ICD-10) History of marijuana use ?F12.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, unspecified, in remission (ICD-10) Diverticulitis of sigmoid colon ?K57.32 - Diverticulitis of large intestine without perforation or abscess without bleeding (ICD-10) Common iliac aneurysm ?I72.3 - Aneurysm of iliac artery (ICD-10) Chronic low back pain ?M54.50 - Low back pain, unspecified (ICD-10) ?G89.29 - Other chronic pain (ICD-10) Leukocytosis ?D72.829 - Elevated white blood cell count, unspecified (ICD-10) Anemia ?D64.9 - Anemia, unspecified (ICD-10) Surgical History History of heart artery stent ?Z95.5 - Presence of coronary angioplasty implant and graft (ICD-10) History of spinal surgery ?Z98.890 - Other specified postprocedural states (ICD-10) History of hemorrhoids ?Z87.19 - Personal history of other diseases of the digestive system (ICD-10) History of carpal tunnel surgery ?Z98.890 - Other specified postprocedural states (ICD-10) Social History Smoking Status: Current some day smoker What tobacco products do you use: cigarettes Smoking quit date/years: >15 years ago Do you use any of these nicotine containing products: None Second hand tobacco smoke exposure: No How often do you have a drink containing alcohol: monthly or less How many standard drinks containing alcohol do you have on a typical day: 1 or 2 How often do you have six or more drinks on one occasion: Never AUDIT-C Alcohol total score: 1 Non-prescribed substance use: marijuana (any form) service: Yes Exam Narrative: Exam Narrative: Constitutional: Appears well-developed and well-nourished. Alert. Conversant but very vague historian.. Non toxic. HENT: Head: Atraumatic. Nose: Nose normal. Mouth/Throat: Oral mucosa is clear and moist. no trismus. Pharynx normal. Tonsils symmetric. No tonsillar enlargement, erythema, or exudate. Eyes: Conjunctivae normal. EOM normal. Pupils equal, round, and reactive to light. No scleral icterus. Neck: Normal range of motion. Neck supple. No tracheal deviation present. Cardiovascular: Normal rate, regular rhythm. No gallop. No friction rub. No murmur heard. Symmetric radial artery pulses Pulmonary/Chest: Effort normal. No stridor. No respiratory distress. No wheezes. No rales. No rhonchi . No tenderness. Abdominal: Soft. Bowel sounds normal. No distension. Non tympanic. No mass. Periumbilical and suprapubic tenderness. No rebound. No guarding. Ostomy in right mid abdomen. There is liquidy green/brown stool in the ostomy bag. Visualized ostomy mucosa looks pink. Musculoskeletal: RUE: Normal range of motion. No tenderness. No deformity LUE: Normal range of motion. No tenderness. No deformity RLE: Normal range of motion. No edema. No tenderness. No deformity LLE: Normal range of motion. No edema. No tenderness. No deformity Lymph: No cervical adenopathy. Neurological: Alert and oriented to person, place, and time. Normal strength. CN II-VII intact. No sensory deficit. GCS eye subscore is 4. GCS verbal subscore is 5. GCS motor subscore is 6. Normal coordination Skin: Skin is warm and dry. No rash noted. No pallor. Normal capillary refill. Psychiatric: N flat affect. His 's at home. She has suffered an aneurysm so she is disabled and cannot come the hospital with him. He is normally her primary caregiver. He also notes that his 's mother is very sick and she could any day now, possibly even tonight. His lot of stress at home. Nonetheless he is so ill he feels like he needs to be back in the hospital at the [place]. Const: Vital Signs, click to edit/add: Vital Signs - 24 hr 08/03/24 20:01 08/03/24 23:31 Temperature 97.3 F L 98.3 F Pulse Rate [Right Pulse Oximeter] 64 52 L Respiratory Rate 18 16 Blood Pressure [Ri ght Upper Arm] 140/99 H 118/64 Pulse Oximetry 99 99 Oxygen Delivery Me thod Room Air Room Air Course Vital Signs Vital signs: Initial Vital Signs Temperature 97.3 F L 08/03/24 20:01 Temperature Source Temporal Artery Scan 08/03/24 20:01 Pulse Rate 64 08/03/24 20:01 Pulse Rhythm Regular 08/03/24 20:01 Respiratory Rate 18 08/03/24 20:01 Blood Pressure 140/99 H 08/03/24 20:01 Blood Pressure Mean 112 H 08/03/24 20:01 Blood Pressure Position Sitting 08/03/24 20:01 Pulse Oximetry 99 08/03/24 20:01 Oxygen Delivery Method Room Air 08/03/24 20:01 Vital Signs Temperature 97.3 F L 08/03/24 20:01 Pulse Rate 64 08/03/24 20:01 Respiratory Rate 18 08/03/24 20:01 Blood Pressure 140/99 H 08/03/24 20:01 Pulse Oximetry 99 08/03/24 20:01 Oxygen Delivery Method Room Air 08/03/24 20:01 Temperature 98.3 F 08/03/24 23:31 Pulse Rate 52 L 08/03/24 23:31 Respiratory Rate 16 08/03/24 23:31 Blood Pressure 118/64 08/03/24 23:31 Pulse Oximetry 99 08/03/24 23:31 Oxygen Delivery Method Room Air 08/03/24 23:31 Medications Administered Medications: Generic Name Dose Route Start Last Admin Trade Name Freq PRN Reason Stop Dose Admin Hydromorphone HCl 0.5 mg 08/03/24 21:01 08/04/24 00:12 Hydromorphone 0.5 Mg/0.5 Ml Inj IVP 0.5 mg Q1H PRN Administration Pain Discontinued Medications Generic Name Dose Route Start Last Admin Trade Name Freq PRN Reason Stop Dose Admin Sodium Chloride 1,000 mls @ 1,000 mls/hr 08/03/24 21:15 08/04/24 00:12 0.9 % Sodium Chloride 1000 Ml IV 08/03/24 22:14 Infused .Q1H TA[place]NA Infusion Piperacillin Sod/Tazobactam 100 mls @ 200 mls/hr 08/03/24 21:03 08/03/24 22:38 Sod 4.5 gm/ Sodium Chloride IVPB 08/03/24 21:04 Infused ONCE ONE Infusion Ondansetron HCl 4 mg 08/03/24 21:01 08/03/24 21:20 Ondansetron Odt 4 Mg Tab PO 08/03/24 21:02 4 mg ONCE ONE Administration Ondansetron HCl 4 mg 08/03/24 21:47 08/03/24 22:09 Ondansetron 2 Mg/Ml Inj IVP 08/03/24 21:48 4 mg ONCE ONE Administration Pantoprazole Sodium 80 mg 08/03/24 23:13 08/03/24 23:28 Pantoprazole Sodium 40 Mg Inj IVP 08/03/24 23:14 80 mg ONCE ONE Administration Medical Decision Making MDM Narrative Medical decision making narrative: 73-year-old gentleman with a very complex recent past medical and surgical history returning to the ER today with ongoing nausea and vomiting, generalized weakness, dehydration, abdominal pain. He had been seen here in the ER 2 days ago. As part is workup 2 days ago he had a urinalysis. Urine culture came back today positive for Pseudomonas, pansensitive. He was notified of this by phone. He came back to the ER today with worsening pain and nausea. In terms of his UTI we will start him on IV Zosyn here in the ER which would cover his Pseudomonas. Kidney function is mildly abnormal with a BUN of 49 and creatinine 1.5 and I suspect this is probably prerenal from dehydration. CT scan does not show any obstructing kidney stone or hydronephrosis. He is not febrile, nor is he tachycardic but he does have a leukocytosis. No clear evidence for urosepsis at this point. His it is clear the require hospitalization for IV fluids, nausea control, pain control. He is requesting transfer to the [place] and that makes the most medical sense given his recent complex history there and his relationships with those doctors. We contacted the [facility] and unfortunately there are no open beds. I also contacted the [facility] and they do not have a formal waiting list. The triage individual from the phone line will keep the patient's information Handy and if any bed opens up overnight, they will call us. However they recommend that we call back in the morning to see if beds are opening up or if they ?get some movement. ? With his abdominal pain consider other pathology. CT scan is obtained. CT scan does reveal evidence for duodenitis but no evidence for perforation. He does not have any evidence for GI bleeding with greenish output in his ostomy. Hemoglobin today is 15.3. He is not anticoagulated. Started on Protonix 80 mg IV here in the ER for duodenitis. I wonder if duodenal inflammation could be contributing to some of his longstanding nausea. There is mention of possible gallbladder inflammation but duodenum is favored to be the source for the CT findings. Incidentally also has a lesion his pancreatic tail. Will need outpatient follow-up. On the patient abdominal exam he still has jeannine in his midline incision. He has a known incisional hernia and he has loops of bowel just below the skin so his surgeons are recommending that we leave the jeannine in to prevent dehiscence of the wound and exposure of his bowel. CT scan also shows a genevieve-incisional focal fluid collection in the midline measuring 7.[address] scan also shows a 14 cm area of fat necrosis in the left abdomen. I discussed these findings with our on-call surgeon, Denisse who reviewed the imaging. She feels that the report is somewhat over stated. No surgical pathology right now. She does, however agree that the [facility] you to his previous surgeons. No need for any immediate surgical intervention right now. Discussed with our overnight hospitalist, Dr. Hill. We discussed the patient's history and presenting symptoms in detail. We discussed his imaging findings including fluid collections, fat necrosis, duodenitis. We discussed his labs and urinary tract infection. He agrees to admit for IV fluids, IV antibiotics, nausea and symptom control. We anticipate that hopefully [facility] so [facility] can [facility]. Lab Data Labs: Lab Results 08/03/24 Range/Units 21:30 WBC 17.15 H (4.50-11.00) K/uL RBC 4.99 (4.30-5.90) m/uL Hgb 15.3 (13.5-17.5) gm/dL Hct 45.1 (37.0-53.0) % MCV 90 (80-100) fL MCH 31 (26-34) pg MCHC 34 (32-36) gm/dL RDW Coeff of [place] 14.3 (11.5-15.5) % Plt Count 249 (140-440) K/uL Neut % (Auto) 86.6 H (42.0-72.0) % Lymph % (Auto) 6.9 L (20-44) % Moody % (Auto) 5.6 (0.0-11.0) % Eos % (Auto) 0.3 (0.0-7.0) % Baso % (Auto) 0.2 (0.0-3.0) % Neut # (Auto) 14.90 H (1.7-7.0) K/uL Lymph # (Auto) 1.20 (0.90-2.90) K/uL Moody # (Auto) 1.00 H (0.00-0.90) K/UL Eos # (Auto) 0.10 (0.00-0.50) K/uL Baso # (Auto) 0.00 (0.00-0.30) K/uL Abs Immat Gran (auto) 0.10 (0.00-0.30) K/uL Imm/Tot Granulo (auto) 0.4 % Sodium 127 L (135-149) mmol/L Potassium 4.4 (3.6-5.1) mmol/L Chloride 91 L (96-114) mmol/L Carbon Dioxide 21 (20-32) mmol/L Anion Gap 15 (7-15) mEq/L BUN 49 H (7-30) mg/dL Creatinine 1.5 (0.5-1.5) mg/dL Estimated GFR 49 ml/min Glucose 115 (60-115) mg/dL Lactate 2.5 H (0.5-1.9) mmol/L Calcium 10.4 (8.4-10.6) mg/dL Total Bilirubin 0.5 (0.1-1.5) mg/dL AST 36 H (12-35) U/L ALT 42 (4-50) U/L Alkaline Phosphatase 84 (40-150) U/L Total Protein 8.1 (6.0-8.3) g/dL Albumin 4.8 (3.3-5.0) g/dL ECG Data Attestation: I personally reviewed and interpreted this ECG as follows: Interpretation: Sinus bradycardia with first-degree AV block Rate: 57 MS: To 84 QRS axis: Right bundle branch block. Left axis deviation. Left anterior fascicular block. Voltage criteria for LVH. ST segment/T wave: Artifact in lead V3. Otherwise no ST segment elevation or depression. QTc: 451 Discharge Plan Discharge Clinical Impression: Acute UTI, Nausea, Duodenitis, Intra-abdominal abscess, Acute dehydration, Pancreatic lesion Patient Disposition: Xfer Other Prescriptions: No Action nitroglycerin 0.4 mg tablet, sublingual 0.4 mg sublingual Q5M PRN isosorbide mononitrate 30 mg tablet extended release 24 hr 30 mg PO QDAY Qty: 90 3RF atorvastatin 40 mg tablet 40 mg PO DAILY Qty: 90 3RF dicyclomine 10 mg capsule 10 mg PO BID PRN (Reason: abd pain) Qty: 60 11RF empagliflozin 25 mg tablet 12.5 mg PO DAILY Qty: 45 3RF furosemide 20 mg tablet 20 mg PO DAILY Qty: 90 3RF lisinopril-hydrochlorothiazide 10-12.5 mg tablet 0.5 tab PO DAILY Qty: 45 3RF ondansetron 4 mg tablet,disintegrating 4 mg PO Q6H PRN (Reason: nausea and vomiting) Qty: 60 5RF spironolactone 25 mg tablet 12.5 mg PO DAILY Qty: 45 3RF aspirin [Adult Aspirin Regimen] 81 mg tablet,delayed release (DR/EC) 81 mg PO DAILY ondansetron HCl 4 mg tablet 4 mg PO Q6H Qty: 20 0RF Stand Alone Forms: [employer] Info Instructions
--- NOTE | 2024-08-03 21:01 | CRLHL7_ITS ---
For Patients: As a result of the Century Cures Act, medical imaging exams and procedure reports are released immediately into your electronic medical record. You may view this report before your referring provider. If you have questions, please contact your health care provider. INDICATION: Abdominal pain, nausea, UTI, recent diverticulitis with abscess. TECHNIQUE: CT abdomen and pelvis acquired with 91 cc Isovue 370 IV contrast. COMPARISON: 07/16/2024, 04/23/2024. FINDINGS: Lower chest: Unremarkable. Liver: Cysts and subcentimeter hypodense lesions that are too small to characterize. Normal in size and attenuation. No suspicious masses. Gallbladder and bile ducts: No apparent cholelithiasis or gallbladder wall thickening. No biliary dilatation. Pancreas: Pancreatic tail cystic lesion measuring 1.4 cm (2/43). No solid mass or inflammation. Spleen: Multiple splenules. Normal in size. No masses. Adrenal glands: Stable left adrenal adenoma. Right adrenal is unremarkable. Kidneys: Similar renal cortical scarring with possible prior right partial nephrectomy. Subcentimeter hypodense lesions, possibly cysts. No suspicious masses, obstructive stones, or hydronephrosis. GI tract: Edematous appearance of the proximal duodenum with periduodenal fat stranding (2/48). 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 Normal bowel caliber. Normal appendix. Rectosigmoid anastomosis. Colonic diverticuli, but no acute diverticulitis. Vasculature: Atherosclerotic changes of the aorta and branch vessels. Abdominal aorta is normal in caliber. Mesenteric arteries are patent. Lymph nodes: No lymphadenopathy. Peritoneum/Abdominal Wall: Midline skin jeannine with a genevieve-incisional focal fluid collection measuring 3.9 x 1.3 x 7.2 cm, sterility indeterminate (2/103, 5/102). Ventral hernia containing a nonobstructed loop of small bowel. Right lower quadrant loop ileostomy. There is a large focal region of fat extending to the left upper quadrant with internal soft tissue thickening and pockets of fluid measuring approximately 14 x 8 cm (5/33) that has increased in conspicuity across recent exams (2/49). Pelvis: Bladder is decompressed. Prostatomegaly. Bones: No acute or suspicious lesions. IMPRESSION: 1. Edematous appearance of the proximal duodenum with periduodenal inflammatory changes that could be suggestive of duodenitis and/or active ulcer. The gallbladder is also near the region of inflammation, so acute cholecystitis could not be entirely ruled out. However, gallbladder etiology is less favored. 2. Pancreatic tail cystic lesion measured 1.4 cm that may represent a side branch IPMN. 3. Midline genevieve-incisional focal fluid collection measuring up to 7.2 cm, sterility indeterminate. 4. Left joe abdominal large focal region of fat with inflammatory changes measuring up to 14 cm that it is favored to represent fat necrosis, particularly since it was not present on the 04/23/2024 exam. However, lipomatous tumors (such as liposarcoma) could not be entirely ruled out with this appearance. Please note that all CT scans at this facility use dose modulation, iterative reconstruction, and/or weight-based dosing when appropriate to reduce radiation dose to as low as reasonably achievable. Dictated by Brandan Alas MD @ 08/03/2024 11:06:00 PM (Electronically Signed)
[2024-08-03] MEDS: ONDANSETRON ODT 4 MG TAB PO (21:20)
[2024-08-03] MEDS: HYDROmorphone 0.5 mg/0.5 ml inj IVP (21:39)
[2024-08-03 21:40] LABS: Lactate* 2.5 mmol/L (0.5-1.9)
[2024-08-03 21:54] LABS: Basophils Percent Auto 0.2 % (0.0-3.0); Eosinophils Percent Auto 0.3 % (0.0-7.0); Hematocrit 45.1 % (37.0-53.0); Hemoglobin* 15.3 gm/dL (13.5-17.5); Immature Granulocytes Pct Auto 0.4 %; Lymphocytes Percent Auto 6.9 % (20-44); Mean Corpuscular HGB Conc 34 gm/dL (32-36); Mean Corpuscular Hemoglobin 31 pg (26-34); Mean Corpuscular Volume 90 fL (80-100); Monocytes Percent Auto 5.6 % (0.0-11.0); Neutrophils Percent Auto 86.6 % (42.0-72.0); Platelet Count* 249 K/uL (140-440); RDW Coefficient of Variation % 14.3 % (11.5-15.5); Red Blood Count 4.99 m/uL (4.30-5.90); White Blood Count* 17.15 K/uL (4.50-11.00)
[2024-08-03 21:57] LABS: Albumin* 4.8 g/dL (3.3-5.0); Chloride* 91 mmol/L (96-114); Potassium* 4.4 mmol/L (3.6-5.1); Slide Review Reflex No; Sodium* 127 mmol/L (135-149)
[2024-08-03 22:00] LABS: Alanine Aminotransferase* 42 U/L (4-50); Alkaline Phosphatase* 84 U/L (40-150); Anion Gap 15 mEq/L (7-15); Aspartate Amino Transferase* 36 U/L (12-35); Bilirubin Total* 0.5 mg/dL (0.1-1.5); Blood Urea Nitrogen* 49 mg/dL (7-30); Carbon Dioxide* 21 mmol/L (20-32); Creatinine* 1.5 mg/dL (0.5-1.5); Estimated Glomerular Filt Rate 49 ml/min; Glucose* 115 mg/dL (60-115); Total Protein* 8.1 g/dL (6.0-8.3)
[2024-08-03 22:01] LABS: Calcium* 10.4 mg/dL (8.4-10.6)
[2024-08-03] MEDS: 0.9 % SODIUM CHLORIDE 1000 ml 1,000 ML IV (22:08)
[2024-08-03] MEDS: PIPERACILLIN/TAZOBACTAM 4.5 GM in 0.9 % SODIUM CHLORIDE Mini-bag 100 ML IVPB (22:08)
[2024-08-03] MEDS: ONDANSETRON 2 MG/ML inj 4 MG IVP (22:09)
[2024-08-03] MEDS: PANTOPRAZOLE SODIUM 40 MG INJ 80 MG IVP (23:28)
[2024-08-03 23:31] VITALS: BP 118/64; PULSE 52; RESP 16; TEMP 36.8; O2SAT 99
--- NOTE | 2024-08-03 23:59 | P.EN_ITS ---
Chart Event Note Chart Event Note: Called by the ED regarding Mr. Roy who, per report, underwent colectomy and what appears to be diverting stoma 1 month ago at the [facility]. Reviewed CT scans from Jul 13 and today. No abscess noted in pelvis. He has developed fascial dehiscence/hernia. Elizabeth appear to be in place - would not remove at this time as skin dehiscence would result in evisceration. Will defer to primary surgeon. He appears to be dehydrated I suspect stoma output may be high and therefore this should closely be monitored and recorded by nursing staff. -he should be resuscitated with IV fluids. -Will benefit from stoma nurse consult and nutrition consult. Recommend PPI for duodenitis and antibiotics to appropriately treat UTI Fluid collection noted in lower abdominal wall - this is new/more organized from the . Unclear if this represents infection or seroma from draining ascites from fascial dehiscence but if skin is not reddened, I would not open this as he again, has herniated bowel which connects to that space. Recommend obtaining records from the [facility] including operative report, surgeon clinic notes and most recent hospitalization notes. I did not examine the patient at the time of the discussion.
[2024-08-04] VITALS (7 sets, daily range): BP systolic 99–118; BP diastolic 53–65; PULSE 44–55; RESP 16–18; TEMP 36–36.9; O2SAT 97–99; BMI 24.4
[2024-08-04] MEDS: HYDROmorphone 0.5 mg/0.5 ml inj IVP (00:12)
[2024-08-04 01:02] LABS: Lipase* 230 U/L (23-300)
--- NOTE | 2024-08-04 02:01 | P.IMHP_ITS ---
Hospitalist- H&P: HPI History of Present Illness Time Seen by Provider: 02:05 Date Seen: 08/04/24 Chief complaint: told to come in for urinary infection Narrative: Flynn Roy is a 73 year old male With history of atherosclerotic coronary artery disease with prior cardiac stenting and a recent complex medical surgical history from acute diverticulitis with cool cystic fistula and intra-abdominal abscess requiring a long 2-[facility] hospitalization [facility] with broad-spectrum antibiotic therapy, interventional radiology drainage and ultimately he required a partial colectomy with diverting ileostomy and bladder repair. That was done in June of this year. Since his surgery he has had ongoing nausea and vomiting. He has lost 60 pounds in the last month unintentionally. He has had generalized abdominal pain. He states his ileostomy output has been highly variable including black ileostomy output and liquid to formed variation. He was seen in the emergency room 2 days ago and urinalysis from that visit grew Pseudomonas 7080 colony-forming units that was pansensitive. He was advised to come back to the emergency room and on presentation he said he was too sick at home and has not been able to keep up with fluids. He is weak and generalized abdominal pain and he was requesting to go back to the [facility] where he gets all his care and where the surgeries were performed. The [facility] unfortunately does not have any available beds tonight. CT imaging tonight was performed which showed evidence of duodenitis, a previous known genevieve-incisional fluid collection 7.2 cm and some left [place] abdominal fat inflammatory changes consistent with fat necrosis. Also has incisional hernias and parastomal hernia. Surgery reviewed the films and input appreciated. Decision was made to admit tonight for IV hydration and pain control and initiation of PPI therapy while we attempt to get him a bed at the [facility]. Review of Systems Status of ROS: Reports: 10 or more systems reviewed and unremarkable except as noted in History and below [facility] Medical History Chronic constipation ?K59.09 - Other constipation (ICD-10) Pancreatic cyst ?K86.2 - Cyst of pancreas (ICD-10) Infarction of kidney ?N28.0 - Ischemia and infarction of kidney (ICD-10) Hiatal hernia ?K44.9 - Diaphragmatic hernia without obstruction or gangrene (ICD-10) Multiple lung nodules ?R91.8 - Other nonspecific abnormal finding of lung field (ICD-10) BPH (benign prostatic hyperplasia) ?N40.0 - Benign prostatic hyperplasia without lower urinary tract symptoms (ICD-10) Adenoma of left adrenal gland ?D35.02 - Benign neoplasm of left adrenal gland (ICD-10) History of kidney stones ?Z87.442 - Personal history of urinary calculi (ICD-10) CHF (congestive heart failure) ?I50.9 - Heart failure, unspecified (ICD-10) Edema ?R60.9 - Edema, unspecified (ICD-10) IBS (irritable bowel syndrome) ?K58.9 - Irritable bowel syndrome without diarrhea (ICD-10) CAD (coronary artery disease) ?I25.10 - Atherosclerotic heart disease of [place] coronary artery without angina pectoris (ICD-10) Obstructive sleep apnea syndrome ?G47.33 - Obstructive sleep apnea (adult) (pediatric) (ICD-10) Neck pain ?M54.2 - Cervicalgia (ICD-10) Impulse control disorder ?F63.9 - Impulse disorder, unspecified (ICD-10) Hypertension ?I10 - Essential (primary) hypertension (ICD-10) Hyperlipidemia ?E78.5 - Hyperlipidemia, unspecified (ICD-10) History of vitamin D deficiency ?Z86.39 - Personal history of other endocrine, nutritional and metabolic disease (ICD-10) History of marijuana use ?F12.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, unspecified, in remission (ICD-10) Diverticulitis of sigmoid colon ?K57.32 - Diverticulitis of large intestine without perforation or abscess without bleeding (ICD-10) Common iliac aneurysm ?I72.3 - Aneurysm of iliac artery (ICD-10) Chronic low back pain ?M54.50 - Low back pain, unspecified (ICD-10) ?G89.29 - Other chronic pain (ICD-10) Leukocytosis ?D72.829 - Elevated white blood cell count, unspecified (ICD-10) Anemia ?D64.9 - Anemia, unspecified (ICD-10) Surgical History History of heart artery stent ?Z95.5 - Presence of coronary angioplasty implant and graft (ICD-10) History of spinal surgery ?Z98.890 - Other specified postprocedural states (ICD-10) History of hemorrhoids ?Z87.19 - Personal history of other diseases of the digestive system (ICD-10) History of carpal tunnel surgery ?Z98.890 - Other specified postprocedural states (ICD-10) Social History Smoking Status: Current some day smoker What tobacco products do you use: cigarettes Smoking quit date/years: >15 years ago Do you use any of these nicotine containing products: None Second hand tobacco smoke exposure: No How often do you have a drink containing alcohol: monthly or less How many standard drinks containing alcohol do you have on a typical day: 1 or 2 How often do you have six or more drinks on one occasion: Never AUDIT-C Alcohol total score: 1 Non-prescribed substance use: marijuana (any form) service: Yes Meds Home Medications and Allergies Home Medications ?Medication ?Instructions ?Recorded ?Confirmed ?Type aspirin 81 mg tablet,delayed 81 mg PO DAILY 09/04/22 08/01/24 History release (Adult Aspirin Regimen) nitroglycerin 0.4 mg sublingual 0.4 mg sublingual Q5M PRN 09/13/22 08/01/24 History tablet Allergies Allergy/AdvReac Type Severity Reaction Status Date / Time terazosin Allergy Unknown Verified 08/03/24 21:42 Exam Narrative: Exam Narrative: Vitals: Reviewd afebrile vital signs are stable mild bradycardia General: Pleasant awake alert sclera nonicteric HEENT: atraumatic, sclera nonicteric, PERRL, EOMI, Moist mucous membranes, smile symmetric, edentulous Neck ; Supple, no adenopathy, swelling or tenderness by nurse exam and palpation Chest: Good bilateral breath sounds without retractions or wheezes Cor: Regular rate and rhythm without murmurs Abd; positive bowel sounds, ileostomy in right lower quadrant with good ileostomy output, no guarding or rigidity per nurse palpation of the abdomen extremities ; good perfusion no edema Neuro: : Awake alert oriented, nonfocal neurologic exam Const: Vital Signs, click to edit/add: Vital Signs - 24 hr 08/03/24 20:01 08/03/24 23:31 08/04/24 01:05 Temperature 97.3 F L 98.3 F 98.5 F Pulse Rate [Right Pulse Oximeter] 64 52 L 55 L Respiratory Rate 18 16 18 Blood Pressure [Ri ght Upper Arm] 140/99 H 118/64 118/62 Pulse Oximetry 99 99 Oxygen Delivery Me thod Room Air Room Air Hospitalist - H&P: Result Labs Labs: Laboratory Results - last 24 hr 08/03/24 08/03/24 00:11 21:30 WBC 17.15 H RBC 4.99 Hgb 15.3 Hct 45.1 MCV 90 MCH 31 MCHC 34 RDW Coeff of [place] 14.3 Plt Count 249 Neut % (Auto) 86.6 H Lymph % (Auto) 6.9 L [place] % (Auto) 5.6 Eos % (Auto) 0.3 Baso % (Auto) 0.2 Neut # (Auto) 14.90 H Lymph # (Auto) 1.20 [place] # (Auto) 1.00 H Eos # (Auto) 0.10 Baso # (Auto) 0.00 Abs Immat Gran (auto) 0.10 Imm/Tot Granulo (auto) 0.4 Sodium 127 L Potassium 4.4 Chloride 91 L Carbon Dioxide 21 Anion Gap 15 BUN 49 H Creatinine 1.5 Estimated GFR 49 Glucose 115 Lactate 2.5 H Calcium 10.4 Total Bilirubin 0.5 AST 36 H ALT 42 Alkaline Phosphatase 84 Total Protein 8.1 Albumin 4.[address] scan - abdomen: Attestation: I have reviewed the pertinent imaging results. Radiologist's impression: 1. Edematous appearance of the proximal duodenum with periduodenal inflammatory changes that could be suggestive of duodenitis and/or active ulcer. The gallbladder is also near the region of inflammation, so acute cholecystitis could not be entirely ruled out. However, gallbladder etiology is less favored. 2. Pancreatic tail cystic lesion measured 1.4 cm that may represent a side branch IPMN. 3. Midline genevieve-incisional focal fluid collection measuring up to 7.2 cm, sterility indeterminate. 4. Left shiraz abdominal large focal region of fat with inflammatory changes measuring up to 14 cm that it is favored to represent fat necrosis, particularly since it was not present on the 04/23/2024 exam. However, lipomatous tumors (such as liposarcoma) could not be entirely ruled out with this appearance. Please note that all CT scans at this facility use dose modulation, iterative reconstruction, and/or weight-based dosing when appropriate to reduce radiation dose to as low as reasonably achievable. Assessment and Plan Assessment and plan (1) Duodenitis: Status: Acute (2) Complicated UTI (urinary tract infection): Status: Acute (3) Acute dehydration: Status: Acute (4) Acute kidney injury: Status: Acute Plan 73-year-old gentleman who has had a complex several month history dominated by initial diverticular abscess with [place] vesicular fistula with resultant partial colectomy and diverting ileostomy who not been thriving well at home with poor p.o. intake, ongoing abdominal pain, weakness, 60 pound weight loss in the last month and now a pseudomonal urinary tract infection being admitted night with dehydration, acute kidney injury, abdominal pain, UTI. Ideally the patient would be transferred back to the [facility] where he had all his major hospitalizations and surgeries but at this point no bed is available. CT evidence shows evidence of duodenitis without active bleeding currently. Problems include: 1. Duodenitis 2. Dehydration acute kidney injury 3. Complex UTI with Pseudomonas pansensitive 4. Poor p.o. intake with 60 pound weight loss in the last month 5. Incisional hernia and parastomal hernia 6. Stable atherosclerotic coronary artery disease Plan: 1. Admit observation status with goal to get him back to the [facility] center for his complex medical and surgical history 2. Intravenous pantoprazole therapy either twice daily or pantoprazole drip 3. IV hydration 4. Symptomatic treatment of pain and nausea 5. Piperacillin tazobactam for urinary tract infection complicated 6. Full code 7. Enoxaparin DVT prophylax Patient seen tonight by telemedicine with bedside nurse assistance. Camera on time [id number] Camera off time [id number]
[2024-08-04] MEDS: 0.9 % SODIUM CHLORIDE 1000 ml 1,000 ML 125 ML IV (03:16)
[2024-08-04] MEDS: PIPERACILLIN/TAZOBACTAM 3.375 GM in 0.9 % SODIUM CHLORIDE Mini-bag 100 ML IVPB ×2 (03:17→09:48)
[2024-08-04] MEDS: ONDANSETRON 2 MG/ML inj 4 MG IVP (03:20)
[2024-08-04] MEDS: PANTOPRAZOLE SODIUM 80 MG in 0.9 % SODIUM CHLORIDE 100 ml 100 ML 10 MG IVPB (03:40)
--- NOTE | 2024-08-04 05:18 | PC.NURSE ---
Shift note: Pt was admitted top the unit on account of abdominal pain, nausea and vomiting. Prior to the onset of these symptoms, pt had exploratory LAP at [facility] with colostomy. He resumed regular diet few days before noticing he current symptoms. Pt has central abdominal incision with jeannine. It incision was open to air but does not appeared clean. No fever or chills recorded. Multiple IV medications prescribed including antibiotics. Pt reported that he is going to have difficulty maintaining straight arm position since the IV was placed at the AC from the ED. Therefore, pt want additional IV to be placed. Ota inserted new IV at left wrist. No drainage from the colostomy. At 0230, pt complained of feeling nauseated. IV ondansetron given which appeared effective until 0510 where pt reported of another nausea. informed and ordered promethazine. Pt had difficulty falling asleep. Vitally stable.
[2024-08-04] MEDS: PROCHLORPERAZINE 5 MG/ML VIAL 10 MG IV (06:12)
[2024-08-04] MEDS: SODIUM CHLORIDE 0.9 % (FLUSH) 10 ML SYRINGE 5 ML IVF (09:47)
[2024-08-04 10:36] LABS: Lactate* 2.1 mmol/L (0.5-1.9)
[2024-08-04 10:40] LABS: Basophils Absolute Auto 0.04 K/uL (0.00-0.30); Basophils Percent Auto 0.4 % (0.0-3.0); Eosinophils Absolute Auto 0.08 K/uL (0.00-0.50); Eosinophils Percent Auto 0.7 % (0.0-7.0); Hematocrit 41.4 % (37.0-53.0); Hemoglobin* 13.9 gm/dL (13.5-17.5); Immature Granulocytes Abs Auto 0.03 K/uL (0.00-0.30); Immature Granulocytes Pct Auto 0.3 %; Lymphocytes Percent Auto 13.3 % (20-44); Mean Corpuscular HGB Conc 34 gm/dL (32-36); Mean Corpuscular Hemoglobin 31 pg (26-34); Mean Corpuscular Volume 92 fL (80-100); Monocytes Percent Auto 6.7 % (0.0-11.0); Neutrophils Percent Auto 78.6 % (42.0-72.0); Platelet Count* 194 K/uL (140-440); RDW Coefficient of Variation % 14.5 % (11.5-15.5); White Blood Count* 10.94 K/uL (4.50-11.00)
[2024-08-04 10:46] LABS: Slide Review Reflex No
[2024-08-04 10:51] LABS: Albumin* 3.9 g/dL (3.3-5.0)
[2024-08-04 10:52] LABS: Chloride* 101 mmol/L (96-114); Potassium* 4.3 mmol/L (3.6-5.1); Sodium* 129 mmol/L (135-149)
[2024-08-04 10:54] LABS: Anion Gap 8 mEq/L (7-15); Aspartate Amino Transferase* 27 U/L (12-35); Bilirubin Total* 0.5 mg/dL (0.1-1.5); Carbon Dioxide* 20 mmol/L (20-32); Est. Creatinine Clearance* 73.29; Estimated Glomerular Filt Rate 80 ml/min; Total Protein* 6.7 g/dL (6.0-8.3)
[2024-08-04 10:55] LABS: Alanine Aminotransferase* 29 U/L (4-50); Alkaline Phosphatase* 76 U/L (40-150); Blood Urea Nitrogen* 33 mg/dL (7-30); Calcium* 9.4 mg/dL (8.4-10.6); Glucose* 97 mg/dL (60-115)
--- NOTE | 2024-08-04 13:11 | P.IMPN_ITS ---
Exam Const: Vital Signs, click to edit/add: Vital Signs - 24 hr 08/03/24 20:01 08/03/24 23:31 08/04/24 01:05 Temperature 97.3 F L 98.3 F 98.5 F Pulse Rate [Left P ulse Oximeter] Pulse Rate [Right Pulse Oximeter] 64 52 L 55 L Respiratory Rate 18 16 18 Blood Pressure [Le ft Arm] Blood Pressure [Ri ght Upper Arm] 140/99 H 118/64 118/62 Pulse Oximetry 99 99 Oxygen Delivery Me thod Room Air Room Air 08/04/24 01:40 08/04/24 02:15 08/04/24 03:00 Temperature 96.8 F L 97 F L 97 F L Pulse Rate [Left P ulse Oximeter] 47 L 50 L 50 L Pulse Rate [Right Pulse Oximeter] Respiratory Rate 18 18 18 Blood Pressure [Le ft Arm] 114/65 114/53 L 114/53 L Blood Pressure [Ri ght Upper Arm] Pulse Oximetry 99 97 97 Oxygen Delivery Me thod Room Air Room Air Room Air 08/04/24 08:00 08/04/24 08:27 08/04/24 11:21 Temperature 98.0 F 97.6 F Pulse Rate [Left P ulse Oximeter] 44 L 44 L 54 L Pulse Rate [Right Pulse Oximeter] Respiratory Rate 16 16 18 Blood Pressure [Le ft Arm] 111/62 99/61 Blood Pressure [Ri ght Upper Arm] Pulse Oximetry 97 98 Oxygen Delivery Wi thod Room Air Room Air Labs Labs: Laboratory Results - last 24 hr 08/03/24 08/03/24 08/04/24 00:11 21:30 10:30 WBC 17.15 H 10.94 RBC 4.99 4.50 Hgb 15.3 13.9 Hct 45.1 41.4 MCV 90 92 MCH 31 31 MCHC 34 34 RDW Coeff of [place] 14.3 14.5 Plt Count 249 194 Neut % (Auto) 86.6 H 78.6 H Lymph % (Auto) 6.9 L 13.3 L [place] % (Auto) 5.6 6.7 Eos % (Auto) 0.3 0.7 Baso % (Auto) 0.2 0.4 Neut # (Auto) 14.90 H 8.60 H Lymph # (Auto) 1.20 1.50 [place] # (Auto) 1.00 H 0.70 Eos # (Auto) 0.10 0.08 Baso # (Auto) 0.00 0.04 Abs Immat Gran (auto) 0.10 0.03 Imm/Tot Granulo (auto) 0.4 0.3 Sodium 127 L 129 L Potassium 4.4 4.3 Chloride 91 L 101 Carbon Dioxide 21 20 Anion Gap 15 8 BUN 49 H 33 H Creatinine 1.5 1.0 Estimated Creat Clear 73.29 Estimated GFR 49 80 Glucose 115 97 Lactate 2.5 H 2.1 H Calcium 10.4 9.4 Total Bilirubin 0.5 0.5 AST 36 H 27 ALT 42 29 Alkaline Phosphatase 84 76 Total Protein 8.1 6.7 Albumin 4.8 3.9 Lipase 230
--- NOTE | 2024-08-04 13:38 | PC.NURSE ---
human resources benefits assistant went into patients room to pickling operator lunch tray. Patient handed nursing administrator the Code of Conduct paper that he was given. He said if they don't like how I'm talking he will leave.
--- NOTE | 2024-08-04 14:40 | PM.GSCN ---
History of Present Illness Consult details Date Seen: 08/04/24 Consult date: 08/04/24 Narrative: The patient is a 73 year old male who, per report underwent colectomy and what appears to be diverting ileostomy and bladder repair approximately 1 month ago at the [facility]. Since surgery it sounds like he has had ongoing nausea and vomiting and has re-presented to the emergency department several different times. He was readmitted at the [facility] approximately 2 weeks ago. He presented to the ER yesterday as he was too ill at home and has not been able to keep fluids down. He states that he had generalized abdominal pain. He had been in the emergency department 2 days prior and was found to have a UTI. This eventually grew Pseudomonas. In the ER he was found to have an elevated white blood cell count, a mildly elevated lactate at 2.5, and with signs of acute kidney injury with elevated BUN and upper limits of normal creatinine. CT scan was obtained which did not show intra-abdominal abscess though there was a new fluid collection below his incision. No evidence of bowel obstruction. He also appears to have a hernia/fascial dehiscence just underneath the stapled skin. Today, the patient stated that the abdominal pain was generalized and was unable to tell me if that has improved. When asked if he had been vomiting, he stated that he could not vomit but would not expand upon this. He stated that he had nausea when he came in with this is now gone. He stated that he ate okay this morning. The patient will close his eyes and refused to answer questions during the exam. Eventually he states that he is going to sleep and refuses to continue the visit. He has been swearing at the [facility]. [facility] Medical History Chronic constipation ?K59.09 - Other constipation (ICD-10) Pancreatic cyst ?K86.2 - Cyst of pancreas (ICD-10) Infarction of kidney ?N28.0 - Ischemia and infarction of kidney (ICD-10) Hiatal hernia ?K44.9 - Diaphragmatic hernia without obstruction or gangrene (ICD-10) Multiple lung nodules ?R91.8 - Other nonspecific abnormal finding of lung field (ICD-10) BPH (benign prostatic hyperplasia) ?N40.0 - Benign prostatic hyperplasia without lower urinary tract symptoms (ICD-10) Adenoma of left adrenal gland ?D35.02 - Benign neoplasm of left adrenal gland (ICD-10) History of kidney stones ?Z87.442 - Personal history of urinary calculi (ICD-10) CHF (congestive heart failure) ?I50.9 - Heart failure, unspecified (ICD-10) Edema ?R60.9 - Edema, unspecified (ICD-10) IBS (irritable bowel syndrome) ?K58.9 - Irritable bowel syndrome without diarrhea (ICD-10) CAD (coronary artery disease) ?I25.10 - Atherosclerotic heart disease of [place] coronary artery without angina pectoris (ICD-10) Obstructive sleep apnea syndrome ?G47.33 - Obstructive sleep apnea (adult) (pediatric) (ICD-10) Neck pain ?M54.2 - Cervicalgia (ICD-10) Impulse control disorder ?F63.9 - Impulse disorder, unspecified (ICD-10) Hypertension ?I10 - Essential (primary) hypertension (ICD-10) Hyperlipidemia ?E78.5 - Hyperlipidemia, unspecified (ICD-10) History of vitamin D deficiency ?Z86.39 - Personal history of other endocrine, nutritional and metabolic disease (ICD-10) History of marijuana use ?F12.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, unspecified, in remission (ICD-10) Diverticulitis of sigmoid colon ?K57.32 - Diverticulitis of large intestine without perforation or abscess without bleeding (ICD-10) Common iliac aneurysm ?I72.3 - Aneurysm of iliac artery (ICD-10) Chronic low back pain ?M54.50 - Low back pain, unspecified (ICD-10) ?G89.29 - Other chronic pain (ICD-10) Leukocytosis ?D72.829 - Elevated white blood cell count, unspecified (ICD-10) Anemia ?D64.9 - Anemia, unspecified (ICD-10) Surgical History History of heart artery stent ?Z95.5 - Presence of coronary angioplasty implant and graft (ICD-10) History of spinal surgery ?Z98.890 - Other specified postprocedural states (ICD-10) History of hemorrhoids ?Z87.19 - Personal history of other diseases of the digestive system (ICD-10) History of carpal tunnel surgery ?Z98.890 - Other specified postprocedural states (ICD-10) Social History What is your current living situation?: I presently have a place to live Problems where you live: no known problems Problems where you live details: None In the past 12 months, utilities in danger of being shut off: no In the past 12 mos, have been you worried that your food would run out before you had money to buy more?: never true In the past 12 mos, the food you bought just didn't last and you didn't have money to buy more?: never true Highest level of school completed/degree received: high school graduate Smoking Status: Current some day smoker What tobacco products do you use: cigarettes Smoking quit date/years: >15 years ago Do you use any of these nicotine containing products: None Second hand tobacco smoke exposure: No How often do you have a drink containing alcohol: monthly or less How many standard drinks containing alcohol do you have on a typical day: 1 or 2 How often do you have six or more drinks on one occasion: Never AUDIT-C Alcohol total score: 1 Non-prescribed substance use: marijuana (any form) How often does anyone, including family, friends and others, physically hurt you: never How often does anyone, including family, friends and others, insult or talk down to you: never How often does anyone, including family, friends and others, threaten you with harm: never How often does anyone, including family, friends and others, scream or curse at you: never service: Yes Meds Home Medications and Allergies Home Medications ?Medication ?Instructions ?Recorded ?Confirmed ?Type aspirin 81 mg tablet,delayed 81 mg PO DAILY 09/04/22 08/04/24 History release (Adult Aspirin Regimen) nitroglycerin 0.4 mg sublingual 0.4 mg sublingual Q5M PRN 09/13/22 08/04/24 History tablet Allergies Allergy/AdvReac Type Severity Reaction Status Date / Time terazosin Allergy Unknown Verified 08/03/24 21:42 Exam Narrative: Exam Narrative: General: Patient is resting comfortably in bed. He is alert but closes his eyes and for tends to be sleeping during the exam Abdomen: Not examined as patient stated that he was sleeping and refused to continue the exam. Const: Vital Signs, click to edit/add: Vital Signs - 24 hr 08/03/24 20:01 08/03/24 23:31 08/04/24 01:05 Temperature 97.3 F L 98.3 F 98.5 F Pulse Rate [Left P ulse Oximeter] Pulse Rate [Right Pulse Oximeter] 64 52 L 55 L Respiratory Rate 18 16 18 Blood Pressure [Le ft Arm] Blood Pressure [Ri ght Upper Arm] 140/99 H 118/64 118/62 Pulse Oximetry 99 99 Oxygen Delivery Me thod Room Air Room Air 08/04/24 01:40 08/04/24 02:15 08/04/24 03:00 Temperature 96.8 F L 97 F L 97 F L Pulse Rate [Left P ulse Oximeter] 47 L 50 L 50 L Pulse Rate [Right Pulse Oximeter] Respiratory Rate 18 18 18 Blood Pressure [Le ft Arm] 114/65 114/53 L 114/53 L Blood Pressure [Ri ght Upper Arm] Pulse Oximetry 99 97 97 Oxygen Delivery Ny thod Room Air Room Air Room Air 08/04/24 08:00 08/04/24 08:27 08/04/24 11:21 Temperature 98.0 F 97.6 F Pulse Rate [Left P ulse Oximeter] 44 L 44 L 54 L Pulse Rate [Right Pulse Oximeter] Respiratory Rate 16 16 18 Blood Pressure [Le ft Arm] 111/62 99/61 Blood Pressure [Ri ght Upper Arm] Pulse Oximetry 97 98 Oxygen Delivery Ny thod Room Air Room Air Results Labs Labs: Abnormal lab results 08/03/24 08/04/24 Range/Units 21:30 10:30 WBC 17.15 H (4.50-11.00) K/uL Neut % (Auto) 86.6 H 78.6 H (42.0-72.0) % Lymph % (Auto) 6.9 L 13.3 L (20-44) % Neut # (Auto) 14.90 H 8.60 H (1.7-7.0) K/uL Delta # (Auto) 1.00 H (0.00-0.90) K/UL Sodium 127 L 129 L (135-149) mmol/L Chloride 91 L (96-114) mmol/L BUN 49 H 33 H (7-30) mg/dL Lactate 2.5 H 2.1 H (0.5-1.9) mmol/L AST 36 H (12-35) U/L Diabetes panel 08/03/24 08/04/24 Range/Units 21:30 10:30 Sodium 127 L 129 L (135-149) mmol/L Potassium 4.4 4.3 (3.6-5.1) mmol/L Chloride 91 L 101 (96-114) mmol/L Carbon Dioxide 21 20 (20-32) mmol/L BUN 49 H 33 H (7-30) mg/dL Creatinine 1.5 1.0 (0.5-1.5) mg/dL Glucose 115 97 (60-115) mg/dL Calcium 10.4 9.4 (8.4-10.6) mg/dL AST 36 H 27 (12-35) U/L ALT 42 29 (4-50) U/L Alkaline Phosphatase 84 76 (40-150) U/L Total Protein 8.1 6.7 (6.0-8.3) g/dL Albumin 4.8 3.9 (3.3-5.0) g/dL Calcium panel 08/03/24 08/04/24 Range/Units 21:30 10:30 Calcium 10.4 9.4 (8.4-10.6) mg/dL Albumin 4.8 3.9 (3.3-5.0) g/dL Pituitary panel 08/03/24 08/04/24 Range/Units 21:30 10:30 Sodium 127 L 129 L (135-149) mmol/L Potassium 4.4 4.3 (3.6-5.1) mmol/L Chloride 91 L 101 (96-114) mmol/L Carbon Dioxide 21 20 (20-32) mmol/L BUN 49 H 33 H (7-30) mg/dL Creatinine 1.5 1.0 (0.5-1.5) mg/dL Glucose 115 97 (60-115) mg/dL Calcium 10.4 9.4 (8.4-10.6) mg/dL Adrenal panel 08/03/24 08/04/24 Range/Units 21:30 10:30 Sodium 127 L 129 L (135-149) mmol/L Potassium 4.4 4.3 (3.6-5.1) mmol/L Chloride 91 L 101 (96-114) mmol/L Carbon Dioxide 21 20 (20-32) mmol/L BUN 49 H 33 H (7-30) mg/dL Creatinine 1.5 1.0 (0.5-1.5) mg/dL Glucose 115 97 (60-115) mg/dL Calcium 10.4 9.4 (8.4-10.6) mg/dL Total Bilirubin 0.5 0.5 (0.1-1.5) mg/dL AST 36 H 27 (12-35) U/L ALT 42 29 (4-50) U/L Alkaline Phosphatase 84 76 (40-150) U/L Total Protein 8.1 6.7 (6.0-8.3) g/dL Albumin 4.8 3.9 (3.3-5.0) g/dL All other labs normal. Imaging Abdomen CT scan report/results: report reviewed and image reviewed Additional studies: CT scans from March, 07/13, 07/16 and 08/[address] scan done yesterday shows duodenitis. No intra-abdominal fluid collection. There is some inflammation within the fat of the abdomen on the left side. There is a new fluid collection below the incision. Unclear if this represents infection versus seroma. The patient does appear to have a midline fascial dehiscence with small bowel noted just below the jeannine. Jeannine are still in place. No sign of obstruction. Progress Note:A&P Assessment and plan (1) Acute kidney injury: Status: Acute (2) Complicated UTI (urinary tract infection): Status: Acute (3) Pancreatic lesion: Status: Acute (4) Acute dehydration: Status: Acute (5) Duodenitis: Status: Acute (6) Nausea: Status: Acute (7) Ileostomy in place: Status: Acute (8) S/P colectomy: Status: Acute Plan The patient is a 73-year-old male who is approximately 1 month status post sigmoidectomy for colovesicular fistula and diverting ileostomy. Duodenitis: -PPI -okay for diet if patient's pain is controlled and he is hungry. Ileostomy status: -patient stoma outputs unknown. Patient unwilling to participate in the conversation. Recommend strict recording of stoma output. If this is greater than 1.5 L per day, Imodium can be used 1-2 mg TID and AC taken 30 minutes before meals. This should be titrated slowly. -recommend nutrition consult to discuss ileostomy diet if patient is amenable -recommend ileostomy nurse consult if still inpatient on Tuesday. Status post sigmoidectomy: Patient has had fascial dehiscence and bowel was noted just beneath the staple line. [place] normally could be removed at this time, however I would leave this up to the operating surgeon at the [facility] to remove on follow-up. There is risk of skin dehiscence and evisceration of the bowel. Fluid collection noted in lower abdominal incision. Per hospitalist's discussion there is no redness on the incision. White blood cell count today is normal. Recommend follow-up as outpatient with his surgeon at the [facility] MIGUE: -likely partially secondary to GI losses from ileostomy, vomiting and inadequate oral intake. -agree with fluid resuscitation. Creatinine and BUN have both improved today and lactate has now normalized. Recommend obtaining records from the [facility] including operative report, surgeon clinic notes and most recent hospitalization notes if the patient is going to continue to be inpatient here.
[2024-08-04] MEDS: 0.9 % SODIUM CHLORIDE 500 ML 500 ML IV (14:44)
[2024-08-04 14:47] LABS: Lactate* 1.9 mmol/L (0.5-1.9)
--- NOTE | 2024-08-04 15:29 | PC.NURSE ---
End of Shift: A&O. VSS, afebrile, bradycardic while sleeping this morning. Patient reports pain in his abdomen but refused PRN medication. Patient was cooperative this morning, this afternoon, while quality analyst/technical writer was attempting to teach pt how to prevent his IV beeping at him by keeping his arm straight, he replied with quit treating me like im f*cking , quality analyst/technical writer responded with I apologize you feel like I am treating you that way, I am only trying to help, the patient then responded with thats mamadou*t, your just a f*ckin excuse, I have been at hospitals and never had issues with the IV beeping, I responded with I apolgize, again I was just trying to help. His response was well you are the one bitching. at this point quality analyst/technical writer apoligized again, and walked away out of the room. Patient continued to say he wanted to leave. Patient continued to swear. field contact technician notified, security notified. Code of conduct reviewed with patient.
--- NOTE | 2024-08-04 16:15 | P.DS_ITS ---
DS: Providers Provider Time Seen by Provider: 10:26 Date Seen: 08/04/24 Date of admission: 08/04/24 01:05 Primary care physician: Not a Local Provider Admitting Clinician: Gerard Daugherty MD Consults: 08/04/24 10:18 Consult to Physician [CONS] Routine Comment: Consulting Provider: Alma Falcon Has provider been notified: Yes Attending Physician on discharge: Augusta Musa MD Date of Discharge: 08/04/24 DS: Diagnosis Discharge Diagnosis (1) S/P colectomy: Status: Acute (2) Ileostomy in place: Status: Acute (3) Acute kidney injury: Status: Acute (4) Acute dehydration: Status: Acute (5) Complicated UTI (urinary tract infection): Status: Acute (6) Duodenitis: Status: Acute DS: Summary Hospital Course Hospital Course: Per H&P: Flynn Roy is a 73 year old male With history of atherosclerotic coronary artery disease with prior cardiac stenting and a recent complex medical surgical history from acute diverticulitis with cool cystic fistula and intra-abdominal abscess requiring a long 2-month hospitalization at the [facility] with broad-spectrum antibiotic therapy, interventional radiology drainage and ultimately he required a partial colectomy with diverting ileostomy and bladder repair. That was done in June of this year. Since his surgery he has had ongoing nausea and vomiting. He has lost 60 pounds in the last month unintentionally. He has had generalized abdominal pain. He states his ileostomy output has been highly variable including black ileostomy output and liquid to formed variation. He was seen in the emergency room 2 days ago and urinalysis from that visit grew Pseudomonas 7080 colony-forming units that was pansensitive. He was advised to come back to the emergency room and on presentation he said he was too sick at home and has not been able to keep up with fluids. He is weak and generalized abdominal pain and he was requesting to go back to the [facility] where he gets all his care and where the surgeries were performed. The [facility] unfortunately does not have any available beds tonight. CT imaging tonight was performed which showed evidence of duodenitis, a previous known genevieve-incisional fluid collection 7.2 cm and some left Shiraz abdominal fat inflammatory changes consistent with fat necrosis. Also has incisional hernias and parastomal hernia. Surgery reviewed the films and input appreciated. Decision was made to admit tonight for IV hydration and pain control and initiation of PPI therapy while we attempt to get him a bed at the [facility]. Patient was given IV hydration with normal saline at 125 mL/hour. He was given hydromorphone IV p.r.n. for pain and was started on piperacillin/tazobactam for Pseudomonas UTI. By morning patient's nausea had resolved. I spoke with Dr. Falcon from General surgery who agreed that I could advance his diet. She came to see him later in the day, and he refused to let her examine him or talk to her because he was trying to sleep. Patient was repeatedly verbally aggressive and verbally abusive to staff, which was addressed with him on several occasions during the day, including discussing the code of conduct with him. His behavior continued to be aggressive and abusive. I addressed this with him, stating that it was unacceptable to be verbally aggressive or abusive with our staff. He said that if we did not like the way he was talking to us, then he would just leave, and he wanted to leave against medical advice. He was agreeable that I would send prescription for levofloxacin to [facility] for urinary tract infection. I asked him to see his surgeon as soon as possible and he said that he would see him on Tuesday. Time Spent with Patient Time attestation: Total time spent providing and/or coordinating discharge services: Exam Narrative: Exam Narrative: General: Cantankerous. Awake, alert, oriented x3. No pallor. No jaundice. Oropharynx: Clear. Mucous membranes moist. Cardiovascular: Regular rate and rhythm. No murmurs, gallops, or rubs. Respiratory: Clear to auscultation bilaterally. No wheezes or crackles. Abdomen: Bowel sounds present. Soft, nondistended, nontender. Ileostomy and right lower quadrant with good ileostomy output, greenish in color, no blood or black stool. Some air is in the bag. Ostomy is pink and viable. Midline incision is healing and still has jeannine in place. There is no skin dehiscence, erythema, induration, swelling or discharge. Const: Vital Signs, click to edit/add: Vital Signs - 24 hr 08/03/24 20:01 08/03/24 23:31 08/04/24 01:05 Temperature 97.3 F L 98.3 F 98.5 F Pulse Rate [Left P ulse Oximeter] Pulse Rate [Right Pulse Oximeter] 64 52 L 55 L Respiratory Rate 18 16 18 Blood Pressure [Le ft Arm] Blood Pressure [Ri ght Upper Arm] 140/99 H 118/64 118/62 Pulse Oximetry 99 99 Oxygen Delivery Me thod Room Air Room Air 08/04/24 01:40 08/04/24 02:15 08/04/24 03:00 Temperature 96.8 F L 97 F L 97 F L Pulse Rate [Left P ulse Oximeter] 47 L 50 L 50 L Pulse Rate [Right Pulse Oximeter] Respiratory Rate 18 18 18 Blood Pressure [Le ft Arm] 114/65 114/53 L 114/53 L Blood Pressure [Ri ght Upper Arm] Pulse Oximetry 99 97 97 Oxygen Delivery Me thod Room Air Room Air Room Air 08/04/24 08:00 08/04/24 08:27 08/04/24 11:21 Temperature 98.0 F 97.6 F Pulse Rate [Left P ulse Oximeter] 44 L 44 L 54 L Pulse Rate [Right Pulse Oximeter] Respiratory Rate 16 16 18 Blood Pressure [Le ft Arm] 111/62 99/61 Blood Pressure [Ri ght Upper Arm] Pulse Oximetry 97 98 Oxygen Delivery Me thod Room Air Room Air DS: Data Data Completed and Pending Labs on day of discharge: Labs from last 24 hours 08/04/24 08/04/24 08/03/24 14:44 10:30 21:30 WBC 10.94 17.15 H RBC 4.50 4.99 Hgb 13.9 15.3 Hct 41.4 45.1 MCV 92 90 MCH 31 31 MCHC 34 34 RDW Coeff of [place] 14.5 14.3 Plt Count 194 249 Neut % (Auto) 78.6 H 86.6 H Lymph % (Auto) 13.3 L 6.9 L Kenton % (Auto) 6.7 5.6 Eos % (Auto) 0.7 0.3 Baso % (Auto) 0.4 0.2 Neut # (Auto) 8.60 H 14.90 H Lymph # (Auto) 1.50 1.20 Kenton # (Auto) 0.70 1.00 H Eos # (Auto) 0.08 0.10 Baso # (Auto) 0.04 0.00 Abs Immat Gran (auto) 0.03 0.10 Imm/Tot Granulo (auto) 0.3 0.4 Sodium 129 L 127 L Potassium 4.3 4.4 Chloride 101 91 L Carbon Dioxide 20 21 Anion Gap 8 15 BUN 33 H 49 H Creatinine 1.0 1.5 Estimated Creat Clear 73.29 Estimated GFR 80 49 Glucose 97 115 Lactate 1.9 2.1 H 2.5 H Calcium 9.4 10.4 Total Bilirubin 0.5 0.5 AST 27 36 H ALT 29 42 Alkaline Phosphatase 76 84 Total Protein 6.7 8.1 Albumin 3.9 4.8 Lipase 08/03/24 00:11 WBC RBC Hgb Hct MCV MCH MCHC RDW Coeff of [place] Plt Count Neut % (Auto) Lymph % (Auto) Kenton % (Auto) Eos % (Auto) Baso % (Auto) Neut # (Auto) Lymph # (Auto) Kenton # (Auto) Eos # (Auto) Baso # (Auto) Abs Immat Gran (auto) Imm/Tot Granulo (auto) Sodium Potassium Chloride Carbon Dioxide Anion Gap BUN Creatinine Estimated Creat Clear Estimated GFR Glucose Lactate Calcium Total Bilirubin AST ALT Alkaline Phosphatase Total Protein Albumin Lipase 230 Ordering Physician: Arthur Sood M.D. Date of Service: 08/03/24 Procedure(s): CT abdomen pelvis w con Accession Number(s): [id number] cc: Arthur Sood M.D.; Provider,Not a Local~ For Patients: As a result of the Century Cures Act, medical imaging exams and procedure reports are released immediately into your electronic medical record. You may view this report before your referring provider. If you have questions, please contact your health care provider. INDICATION: Abdominal pain, nausea, UTI, recent diverticulitis with abscess. TECHNIQUE: CT abdomen and pelvis acquired with 91 cc Isovue 370 IV contrast. COMPARISON: 07/16/2024, 04/23/2024. FINDINGS: Lower chest: Unremarkable. Liver: Cysts and subcentimeter hypodense lesions that are too small to characterize. Normal in size and attenuation. No suspicious masses. Gallbladder and bile ducts: No apparent cholelithiasis or gallbladder wall thickening. No biliary dilatation. Pancreas: Pancreatic tail cystic lesion measuring 1.4 cm (2/43). No solid mass or inflammation. Spleen: Multiple splenules. Normal in size. No masses. Adrenal glands: Stable left adrenal adenoma. Right adrenal is unremarkable. Kidneys: Similar renal cortical scarring with possible prior right partial nephrectomy. Subcentimeter hypodense lesions, possibly cysts. No suspicious masses, obstructive stones, or hydronephrosis. GI tract: Edematous appearance of the proximal duodenum with periduodenal fat stranding (2/48). 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 Normal bowel caliber. Normal appendix. Rectosigmoid anastomosis. Colonic diverticuli, but no acute diverticulitis. Vasculature: Atherosclerotic changes of the aorta and branch vessels. Abdominal aorta is normal in caliber. Mesenteric arteries are patent. Lymph nodes: No lymphadenopathy. Peritoneum/Abdominal Wall: Midline skin jeannine with a genevieve-incisional focal fluid collection measuring 3.9 x 1.3 x 7.2 cm, sterility indeterminate (, ). Ventral hernia containing a nonobstructed loop of small bowel. Right lower quadrant loop ileostomy. There is a large focal region of fat extending to the left upper quadrant with internal soft tissue thickening and pockets of fluid measuring approximately 14 x 8 cm () that has increased in conspicuity across recent exams (). Pelvis: Bladder is decompressed. Prostatomegaly. Bones: No acute or suspicious lesions. IMPRESSION: 1. Edematous appearance of the proximal duodenum with periduodenal inflammatory changes that could be suggestive of duodenitis and/or active ulcer. The gallbladder is also near the region of inflammation, so acute cholecystitis could not be entirely ruled out. However, gallbladder etiology is less favored. 2. Pancreatic tail cystic lesion measured 1.4 cm that may represent a side branch IPMN. 3. Midline genevieve-incisional focal fluid collection measuring up to 7.2 cm, sterility indeterminate. 4. Left shiraz abdominal large focal region of fat with inflammatory changes measuring up to 14 cm that it is favored to represent fat necrosis, particularly since it was not present on the 04/23/2024 exam. However, lipomatous tumors (such as liposarcoma) could not be entirely ruled out with this appearance. Please note that all CT scans at this facility use dose modulation, iterative reconstruction, and/or weight-based dosing when appropriate to reduce radiation dose to as low as reasonably achievable. Dictated by Brandan Alas MD @ 08/03/2024 11:06:00 PM (Electronically Signed) Discharge Plan Discharge Disposition: Left Against Medical Advice Date of Admission: 08/04/24 01:05 Attending Provider on Discharge: Augusta Musa Consulting Providers: Alma Falcon Primary Care Provider: Provider,Not a Local Discharge Medications: New levofloxacin 250 mg tablet 250 mg PO DAILY Qty: 10 0RF Continued nitroglycerin 0.4 mg tablet, sublingual 0.4 mg sublingual Q5M PRN isosorbide mononitrate 30 mg tablet extended release 24 hr 30 mg PO QDAY Qty: 90 3RF atorvastatin 40 mg tablet 40 mg PO DAILY Qty: 90 3RF dicyclomine 10 mg capsule 10 mg PO BID PRN (Reason: abd pain) Qty: 60 11RF empagliflozin 25 mg tablet 12.5 mg PO DAILY Qty: 45 3RF furosemide 20 mg tablet 20 mg PO DAILY Qty: 90 3RF lisinopril-hydrochlorothiazide 10-12.5 mg tablet 0.5 tab PO DAILY Qty: 45 3RF ondansetron 4 mg tablet,disintegrating 4 mg PO Q6H PRN (Reason: nausea and vomiting) Qty: 60 5RF spironolactone 25 mg tablet 12.5 mg PO DAILY Qty: 45 3RF aspirin [Adult Aspirin Regimen] 81 mg tablet,delayed release (DR/EC) 81 mg PO DAILY Discharge Orders: Discharge Order (Routine); Ordered 08/04/24 Ordered By: Augusta Musa AMA Form Signed: Yes Discharge Comments: Follow up with your surgeon as soon as possible, BMP at your PCP's office Tuesday
--- NOTE | 2024-08-04 16:31 | PC.NURSE ---
RN started shift at 1500, while getting report, outgoing RN told the RN typing this note that the patient had been making mean remarksto her during the shift. The nurse also reported that the patient had security staff member assigned to him due to his aggressive behavior that he had been exhibiting earlier. Shortly after getting report, the charge nurse notified the RN writing this note that the patient was again exhibiting the abusive/aggressive behavior and that the supervisor hide house was being notified. This RN was advised by the charge to hold off going to the patient's room for the moment. The next communication was that the patient was choosing to leave against medical advise. This RN, the supervisor hide house and the charge nurse helped the patient get his belongings today and remove IVs. This RN gave the patient instructions to poultry picker antibiotics from [facility] and also to follow up with his surgeon on 08/06/24. The patient verbalized understanding of these instructions. While signing the belongings checklist form, patient was upset at this RN because when he asked the RN writing this note if she knew what today (08/04) was. When the RN said no, the patient stated, Of course not, you probably also don't know how to sing the national anthem. Patient requested for a wheelchair to be wheeled out however he walked off the unit before RN was able to find one.
--- NOTE | 2024-08-04 16:41 | PC.NURSE ---
I was notified by primary RN that patient was swearing and making offensive statements. House sup, security, and myself proceeded to meet with patient around 1330. I asked patient if there had been a concern and he said, My room is too cold and I need food. Lunch tray is present and patient is currently eating. I explained that I could turn temperature in room up if he would like and offered additional snacks. Patient was agreeable. I did then present the patient with the Code of Conduct and explained that we want to ensure his needs are being met and provide him needed care, but we would ask that as we are treating him with respect, we need him to be respectful in return and that would include not swearing and saying verbally abusive statements to staff. Patient said he would speak to staff however he felt and refused to read Code of Conduct. Notes he will speak and act however he likes. He states he will just leave. Explained that that is his right, we would rather he stayed so we can continue care but that is his right to leave against medical advice. Patient continued swearing and saying negative things about nurses, She doesn't know what she's doing. Laughed at Code of Conduct and sad he does not care about that. Again, this afternoon while GILBERT was assisting patient, patient shut door of his room so GILBERT was alone with him. Second GILBERT entered room to ensure staff was safe. Patient was swearing at adjunct nursing faculty and raising his voice again. supervisor dry paste/security notified of this second episode. Administration called. Dr. Musa attempted to speak with patient about his behavior in the presence of myself, security, and house sup. Patient said, I will make it easy for you and leave. She informed him we would like him to stay and get care but he needs to stop swearing at staff and patient says he will just leave. Verbally instructed by Dr. Musa to follow up with his surgeon on Tuesday which patient responds I will. She also informed patient she will send in antibiotic to his pharmacy and he would like it sent to [facility]. IVs removed by housekeeping coordinator. Patient then made a racially inappropriate comment to primary nurse Ayla. Patient walked out on own accord, had asked for W/C but as nurse was getting W/C patient walked past desk.
== END 2024-08-04 16:50 | disposition left against medical advice (07) ==
LOC: ED 23:13 → MEDSURG 08-04 01:06
PROVIDERS: Family Medicine; Admitting Provider Internal Medicine; Emergency Provider Emergency Medicine; Visit Provider Internal Medicine
DX: K29.80 Duodenitis without bleeding (principal); N39.0 Urinary tract infection, site not specified; E86.0 Dehydration; N17.9 Acute kidney failure, unspecified; D72.829 Elevated white blood cell count, unspecified; B96.5 Pseudomonas (aeruginosa) (mallei) (pseudomallei) as the cause of diseases classified elsewhere; Z16.39 Resistance to other specified antimicrobial drug; R11.0 Nausea; R11.10 Vomiting, unspecified; Z93.2 Ileostomy status; Z90.49 Acquired absence of other specified parts of digestive tract
CPT/HCPCS: 36415; 74177; 80053; 83605; 83690; 85025; 87040; 93005; 96361; 96365; 96366; 96375; 99284; 99285; A9270; G0378; J0780; J1171; J2405; J2470; J2543; J7030; Q9967